=== PATIENT | male | born 1985 | race American Indian/Alaskan Native ===

== ENCOUNTER 2019-05-01 15:47 | Inpatient (IN) | payer OTHER ==
[2019-05-01] MEDS ORDERED: SODIUM CHLORIDE 0.9% 1000 ML 1,000 ML IV ONE (17:22)
--- NOTE | 2019-05-01 17:25 | Emergency Department Report ---
ED General Adult HPI - General Chief complaint: Dyspnea/Respdistress Stated complaint: NAUSE/VOMITING/SHAKING Time Seen by Provider: 05/01/19 16:08 Source: patient, RN notes reviewed Mode of arrival: Wheelchair Limitations: Physical Limitation - History of Present Illness Initial comments: The patient is a 34-year-old gentleman who is not known to this provider previously. He does not have a local primary care doctor. He is morbidly obese. He believes that he has a history of sleep apnea, but does not have a formal diagnosis that he is aware of. He reports that he is using a friend's CPAP machine, but he's not use a CPAP for 4-6 weeks. He presents to the ER today with weakness, malaise, reported nausea, somnolence, shortness of breath, lower extremity swelling. He denies DVT and pulmonary embolism risk factors. He does not have a primary care doctor or credit representative. -: Gradual, days(s) Severity scale (0 -10): 0 Consistency: constant Improves with: rest Worsens with: movement - Related Data Allergies Allergy/AdvReac Type Severity Reaction Status Date / Time No Known Allergies Allergy Verified 05/01/19 20:27 ED Review of Systems ROS: Stated complaint: NAUSE/VOMITING/SHAKING Other details as noted in HPI Constitutional: malaise Eyes: denies: eye discharge ENT: congestion Respiratory: shortness of breath Cardiovascular: edema. denies: chest pain Gastrointestinal: nausea Genitourinary: denies: dysuria Musculoskeletal: arthralgia, myalgia Skin: denies: lesions Neurological: weakness Hematological/Lymphatic: denies: easy bleeding ED Past Medical Hx - Past Medical History Previous Medical History?: Yes Additional medical history: Sleep apnea - Surgical History Past Surgical History?: No - Social History Smoking Status: Current Every Day Smoker Substance Use Type: Alcohol ED Physical Exam - General Limitations: Physical Limitation General appearance: alert, anxious, obese - Head Head exam: Present: atraumatic, normocephalic - Eye Eye exam: Present: normal appearance, EOMI. Absent: nystagmus - ENT ENT exam: Present: normal exam, normal orophraynx, mucous membranes moist, normal external ear exam - Neck Neck exam: Present: normal inspection, full ROM. Absent: tenderness, meningismus - Respiratory Respiratory exam: Present: rales. Absent: respiratory distress - Cardiovascular Cardiovascular Exam: Present: normal rhythm, tachycardia, normal heart sounds. Absent: systolic murmur, diastolic murmur, rubs, gallop - GI/Abdominal GI/Abdominal exam: Present: soft. Absent: distended, tenderness, guarding, rebound, rigid, pulsatile mass - Rectal Rectal exam: Present: deferred - Extremities Exam Extremities exam: Present: normal inspection, full ROM, pedal edema, other (2+ pulses noted in the bilateral upper and lower extremities. There is no palpable cord. negative Homans sign. Muscular compartments are soft. The pelvis is stable.). Absent: calf tenderness - Back Exam Back exam: Present: normal inspection. Absent: tenderness, CVA tenderness (R), CVA tenderness (L), paraspinal tenderness, vertebral tenderness - Neurological Exam Neurological exam: Present: alert, other (is no facial droop. The tongue is midline. The extraocular movements are intact bilaterally. Sensation is intact to light touch in 4 extremities. 5 out of 5 strength in 4 extremities.) - Psychiatric Psychiatric exam: Present: anxious ( 5 out of 5 strength in 4 extremities.) - Skin Skin exam: Present: warm, dry, intact, normal color. Absent: rash ED Course Vital Signs 05/01/19 05/01/19 05/01/19 15:57 16:10 16:16 Temperature 98.1 F Pulse Rate 109 H 101 H Respiratory 24 19 14 Rate Blood Pressure 145/85 145/89 Blood Pressure [Left] O2 Sat by Pulse 84 61 L Oximetry 05/01/19 05/01/19 05/01/19 16:30 16:46 16:52 Temperature 99.1 F Pulse Rate 97 H 100 H Respiratory 26 H 26 H Rate Blood Pressure 145/89 145/89 Blood Pressure 145/89 [Left] O2 Sat by Pulse 78 L 94 90 Oximetry 05/01/19 05/01/19 05/01/19 16:53 17:00 17:16 Temperature Pulse Rate 101 H Respiratory 24 32 H 17 Rate Blood Pressure 145/89 145/89 Blood Pressure [Left] O2 Sat by Pulse 93 Oximetry 05/01/19 05/01/19 05/01/19 17:31 17:45 18:01 Temperature Pulse Rate 96 H 100 H 100 H Respiratory 29 H 19 20 Rate Blood Pressure 168/96 168/96 168/96 Blood Pressure [Left] O2 Sat by Pulse 77 L 85 74 L Oximetry 05/01/19 05/01/19 05/01/19 18:15 18:31 18:45 Temperature Pulse Rate Respiratory Rate Blood Pressure 168/96 168/96 168/96 Blood Pressure [Left] O2 Sat by Pulse 89 94 82 L Oximetry 05/01/19 05/01/19 05/01/19 19:01 19:15 19:31 Temperature Pulse Rate Respiratory Rate Blood Pressure 168/96 168/96 168/96 Blood Pressure [Left] O2 Sat by Pulse 87 84 86 Oximetry 05/01/19 05/01/19 05/01/19 19:45 20:01 20:15 Temperature Pulse Rate 99 H 107 H Respiratory 15 15 Rate Blood Pressure 168/96 149/77 149/77 Blood Pressure [Left] O2 Sat by Pulse 87 80 L 70 L Oximetry - Reevaluation(s) Reevaluation #1: 05/01/19 20:37 Differential diagnosis, including but not limited to: Obesity hypoventilation syndrome, obstructive sleep apnea, right-sided heart failure, congestive heart failure, pneumonia Assessment and plan: 34-year-old gentleman who is morbidly obese, found to have lower extremity edema, found to have evidence of congestive heart failure, manifest by hypoxia, edema, pulmonary vascular congestion, all multifactorial, likely secondary to multiple factors, including morbid obesity, and adequately an incompletely managed obstructive sleep apnea, probable obesity hypoventilation syndrome. Most likely has a component of right-sided heart failure, and pulmonary hypertension. He denied recent travel, immobility, surgery. He denied DVT and pulmonary embolism risk factors. Obesity, tachycardia and hypoxia noted, however, this is likely secondary to the aforementioned. In addition, his lower extremity DVT study is negative. His arterial blood gas demonstrated hypoxemic respiratory failure, respiratory acidosis and hypercarbia. Patient mentating at this time. will start on bipap 05/01/19 20:39 \ His congestive heart failure will will be treated with Lasix, noninvasive ventilation, he is found to be hyperkalemic, therefore, he will be treated empirically with a hyperkalemia cocktail. Hypercarbic respiratory failure will be treated with noninvasive ventilation. Patient mentating at this time and is an appropriate candidate for BiPAP therapy. Reevaluation #2: 05/01/19 20:44 d/w JAMI Caraballo, who has accepted patient to the medical service. Leukocytos is is reviewed and appreciated, this is likely a stress reaction. Based off of the available information, I do not suspect acute bacteremic illness at this time. Patient my opinion will not benefit from aggressive IV fluid resuscitation. Reevaluation #3: 05/01/19 21:17 Patient's condition deteriorated. Mental status worsens, not a candidate for BiPAP therapy. Patient required placement of endotracheal tube. He also transiently lost pulses, had aggressive CPR, pulses are reobtained, return of spontaneous circulation obtained. Blood pressure appropriate at this time. Post intubation, patient had rapid narrow complex tachycardia, rate 232, suspicious for SVT versus atrial tachycardia. He was also found to be hypotensive, and this required synchronized cardioversion at 200 J 2. He is now currently in a sinus rhythm, tachycardia, with an appropriate pressu re. [facility] medicine team is updated. 05/01/19 21:47 - Intubation Time Out Performed: No (emergent) Sedative: none Laryngoscope: fiberoptic video scope Size: 4 Assist Device Used: fiberoptic device ET Tube Size: 7.5 Tube Secured Depth (cm): 23 Tube Secured Location: lips Tube Placement Confirmation: visualized tube passing t, equal breath sounds bilat, no breath sounds over epi, confirmation by capnometr Patient Tolerated Procedure: well Intubation Complications: difficult intubation ED Medical Decision Making - Lab Data Result diagrams: 05/01/19 Unknown 05/01/19 Unknown Vital Signs 05/01/19 05/01/19 05/01/19 15:57 16:52 16:53 Temperature 98.1 F 99.1 F Pulse Rate 109 H 100 H Respiratory 24 26 H 24 Rate Blood Pressure 145/85 Blood Pressure 145/89 [Left] O2 Sat by Pulse 84 90 Oximetry Lab Results 05/01/19 05/01/19 05/01/19 Range/Units 17:50 Unknown Unknown WBC 16.1 H (4.5-11.0) K/mm3 RBC 4.79 (3.65-5.03) M/mm3 Hgb 13.3 (11.8-15.2) gm/dl Hct 41.0 (35.5-45.6) % MCV 86 (84-94) fl MCH 28 (28-32) pg MCHC 33 (32-34) % RDW 17.2 H (13.2-15.2) % Plt Count 266 (140-440) K/mm3 Lymph % (Auto) 16.6 (13.4-35.0) % Shelby % (Auto) 9.6 H (0.0-7.3) % Eos % (Auto) 0.2 (0.0-4.3) % Baso % (Auto) 0.6 (0.0-1.8) % Lymph # 2.7 (1.2-5.4) K/mm3 Shelby # 1.5 H (0.0-0.8) K/mm3 Eos # 0.0 (0.0-0.4) K/mm3 Baso # 0.1 (0.0-0.1) K/mm3 Seg Neutrophils % 73.0 H (40.0-70.0) % Seg Neutrophils # 11.7 H (1.8-7.7) K/mm3 PT 15.4 H (12.2-14.9) Sec. INR 1.23 H (0.87-1.13) APTT 22.7 L (24.2-36.6) Sec. POC ABG pH 7.272 L (7.35-7.45) POC ABG HCO3 33.1 (22-26 mml/L) POC ABG Total CO2 35 (23-27mmol/L) POC ABG O2 Sat 69 POC ABG Base Excess 6 ((-2) - (+3)mmol/L) FiO2 21 % Sodium Potassium Chloride Carbon Dioxide Anion Gap BUN Creatinine Estimated GFR BUN/Creatinine Ratio Glucose Calcium Magnesium Total Bilirubin AST ALT Alkaline Phosphatase Total Creatine Kinase (55-170) units/L Troponin T NT-Pro-B Natriuret Pep (0-450) pg/mL Total Protein Albumin Albumin/Globulin Ratio 05/01/19 05/01/19 05/01/19 Range/Units Unknown Unknown Unknown WBC (4.5-11.0) K/mm3 RBC (3.65-5.03) M/mm3 Hgb (11.8-15.2) gm/dl Hct (35.5-45.6) % MCV (84-94) fl MCH (28-32) pg MCHC (32-34) % RDW (13.2-15.2) % Plt Count (140-440) K/mm3 Lymph % (Auto) (13.4-35.0) % Shelby % (Auto) (0.0-7.3) % Eos % (Auto) (0.0-4.3) % Baso % (Auto) (0.0-1.8) % Lymph # (1.2-5.4) K/mm3 Shelby # (0.0-0.8) K/mm3 Eos # (0.0-0.4) K/mm3 Baso # (0.0-0.1) K/mm3 Seg Neutrophils % (40.0-70.0) % Seg Neutrophils # (1.8-7.7) K/mm3 PT (12.2-14.9) Sec. INR (0.87-1.13) APTT (24.2-36.6) Sec. POC ABG pH (7.35-7.45) POC ABG HCO3 (22-26 mml/L) POC ABG Total CO2 (23-27mmol/L) POC ABG O2 Sat POC ABG Base Excess ((-2) - (+3)mmol/L) FiO2 % Sodium TNR Potassium TNR Chloride TNR Carbon Dioxide TNR Anion Gap TNR BUN TNR Creatinine TNR Estimated GFR TNR BUN/Creatinine Ratio TNR Glucose TNR Calcium TNR Magnesium TNR Total Bilirubin TNR AST TNR ALT TNR Alkaline Phosphatase TNR Total Creatine Kinase 226 H (55-170) units/L Troponin T TNR NT-Pro-B Natriuret Pep 6831 H (0-450) pg/mL Total Protein TNR Albumin TNR Albumin/Globulin Ratio TNR Vital Signs 05/01/19 05/01/19 05/01/19 15:57 16:10 16:16 Temperature 98.1 F Pulse Rate 109 H 101 H Respiratory 24 19 14 Rate Blood Pressure 145/85 145/89 Blood Pressure [Left] O2 Sat by Pulse 84 61 L Oximetry 05/01/19 05/01/19 05/01/19 16:30 16:46 16:52 Temperature 99.1 F Pulse Rate 97 H 100 H Respiratory 26 H 26 H Rate Blood Pressure 145/89 145/89 Blood Pressure 145/89 [Left] O2 Sat by Pulse 78 L 94 90 Oximetry 05/01/19 05/01/19 05/01/19 16:53 17:00 17:16 Temperature Pulse Rate 101 H Respiratory 24 32 H 17 Rate Blood Pressure 145/89 145/89 Blood Pressure [Left] O2 Sat by Pulse 93 Oximetry 05/01/19 05/01/19 05/01/19 17:31 17:45 18:01 Temperature Pulse Rate 96 H 100 H 100 H Respiratory 29 H 19 20 Rate Blood Pressure 168/96 168/96 168/96 Blood Pressure [Left] O2 Sat by Pulse 77 L 85 74 L Oximetry 05/01/19 05/01/19 05/01/19 18:15 18:31 18:45 Temperature Pulse Rate Respiratory Rate Blood Pressure 168/96 168/96 168/96 Blood Pressure [Left] O2 Sat by Pulse 89 94 82 L Oximetry 05/01/19 05/01/19 05/01/19 19:01 19:15 19:31 Temperature Pulse Rate Respiratory Rate Blood Pressure 168/96 168/96 168/96 Blood Pressure [Left] O2 Sat by Pulse 87 84 86 Oximetry 05/01/19 05/01/19 05/01/19 19:45 20:01 20:15 Temperature Pulse Rate 99 H 107 H Respiratory 15 15 Rate Blood Pressure 168/96 149/77 149/77 Blood Pressure [Left] O2 Sat by Pulse 87 80 L 70 L Oximetry Lab Results 05/01/19 05/01/19 05/01/19 Range/Units 17:50 19:26 Unknown WBC 16.1 H (4.5-11.0) K/mm3 RBC 4.79 (3.65-5.03) M/mm3 Hgb 13.3 (11.8-15.2) gm/dl Hct 41.0 (35.5-45.6) % MCV 86 (84-94) fl MCH 28 (28-32) pg MCHC 33 (32-34) % RDW 17.2 H (13.2-15.2) % Plt Count 266 (140-440) K/mm3 Lymph % (Auto) 16.6 (13.4-35.0) % Shelby % (Auto) 9.6 H (0.0-7.3) % Eos % (Auto) 0.2 (0.0-4.3) % Baso % (Auto) 0.6 (0.0-1.8) % Lymph # 2.7 (1.2-5.4) K/mm3 Shelby # 1.5 H (0.0-0.8) K/mm3 Eos # 0.0 (0.0-0.4) K/mm3 Baso # 0.1 (0.0-0.1) K/mm3 Seg Neutrophils % 73.0 H (40.0-70.0) % Seg Neutrophils # 11.7 H (1.8-7.7) K/mm3 PT (12.2-14.9) Sec. INR (0.87-1.13) APTT (24.2-36.6) Sec. POC ABG pH 7.272 L (7.35-7.45) POC ABG HCO3 33.1 (22-26 mml/L) POC ABG Total CO2 35 (23-27mmol/L) POC ABG O2 Sat 69 POC ABG Base Excess 6 ((-2) - (+3)mmol/L) FiO2 21 % Sodium 136 L (137-145) mmol/L Potassium 6.5 H* (3.6-5.0) mmol/L Chloride 97.2 L (98-107) mmol/L Carbon Dioxide 27 (22-30) mmol/L Anion Gap 18 mmol/L BUN 60 H (9-20) mg/dL Creatinine 1.5 (0.8-1.5) mg/dL Estimated GFR > 60 ml/min BUN/Creatinine Ratio 40 % Glucose 113 H (75-100) mg/dL Calcium 8.6 (8.4-10.2) mg/dL Magnesium 2.40 H (1.7-2.3) mg/dL Total Bilirubin 0.70 (0.1-1.2) mg/dL AST 139 H (5-40) units/L ALT 154 H (7-56) units/L Alkaline Phosphatase 122 (35-129) units/L Total Creatine Kinase (55-170) units/L Troponin T NT-Pro-B Natriuret Pep (0-450) pg/mL Total Protein 8.2 (6.3-8.2) g/dL Albumin 3.8 L (3.9-5) g/dL Albumin/Globulin Ratio 0.9 % 05/01/19 05/01/19 05/01/19 Range/Units Unknown Unknown Unknown WBC (4.5-11.0) K/mm3 RBC (3.65-5.03) M/mm3 Hgb (11.8-15.2) gm/dl Hct (35.5-45.6) % MCV (84-94) fl MCH (28-32) pg MCHC (32-34) % RDW (13.2-15.2) % Plt Count (140-440) K/mm3 Lymph % (Auto) (13.4-35.0) % Shelby % (Auto) (0.0-7.3) % Eos % (Auto) (0.0-4.3) % Baso % (Auto) (0.0-1.8) % Lymph # (1.2-5.4) K/mm3 Shelby # (0.0-0.8) K/mm3 Eos # (0.0-0.4) K/mm3 Baso # (0.0-0.1) K/mm3 Seg Neutrophils % (40.0-70.0) % Seg Neutrophils # (1.8-7.7) K/mm3 PT 15.4 H (12.2-14.9) Sec. INR 1.23 H (0.87-1.13) APTT 22.7 L (24.2-36.6) Sec. POC ABG pH (7.35-7.45) POC ABG HCO3 (22-26 mml/L) POC ABG Total CO2 (23-27mmol/L) POC ABG O2 Sat POC ABG Base Excess ((-2) - (+3)mmol/L) FiO2 % Sodium TNR (137-145) mmol/L Potassium TNR (3.6-5.0) mmol/L Chloride TNR (98-107) mmol/L Carbon Dioxide TNR (22-30) mmol/L Anion Gap TNR mmol/L BUN TNR (9-20) mg/dL Creatinine TNR (0.8-1.5) mg/dL Estimated GFR TNR ml/min BUN/Creatinine Ratio TNR % Glucose TNR (75-100) mg/dL Calcium TNR (8.4-10.2) mg/dL Magnesium TNR (1.7-2.3) mg/dL Total Bilirubin TNR (0.1-1.2) mg/dL AST TNR (5-40) units/L ALT TNR (7-56) units/L Alkaline Phosphatase TNR (35-129) units/L Total Creatine Kinase (55-170) units/L Troponin T TNR NT-Pro-B Natriuret Pep 6831 H (0-450) pg/mL Total Protein TNR (6.3-8.2) g/dL Albumin TNR (3.9-5) g/dL Albumin/Globulin Ratio TNR % 05/01/19 Range/Units Unknown WBC (4.5-11.0) K/mm3 RBC (3.65-5.03) M/mm3 Hgb (11.8-15.2) gm/dl Hct (35.5-45.6) % MCV (84-94) fl MCH (28-32) pg MCHC (32-34) % RDW (13.2-15.2) % Plt Count (140-440) K/mm3 Lymph % (Auto) (13.4-35.0) % Shelby % (Auto) (0.0-7.3) % Eos % (Auto) (0.0-4.3) % Baso % (Auto) (0.0-1.8) % Lymph # (1.2-5.4) K/mm3 Shelby # (0.0-0.8) K/mm3 Eos # (0.0-0.4) K/mm3 Baso # (0.0-0.1) K/mm3 Seg Neutrophils % (40.0-70.0) % Seg Neutrophils # (1.8-7.7) K/mm3 PT (12.2-14.9) Sec. INR (0.87-1.13) APTT (24.2-36.6) Sec. POC ABG pH (7.35-7.45) POC ABG HCO3 (22-26 mml/L) POC ABG Total CO2 (23-27mmol/L) POC ABG O2 Sat POC ABG Base Excess ((-2) - (+3)mmol/L) FiO2 % Sodium (137-145) mmol/L Potassium (3.6-5.0) mmol/L Chloride (98-107) mmol/L Carbon Dioxide (22-30) mmol/L Anion Gap mmol/L BUN (9-20) mg/dL Creatinine (0.8-1.5) mg/dL Estimated GFR ml/min BUN/Creatinine Ratio % Glucose (75-100) mg/dL Calcium (8.4-10.2) mg/dL Magnesium (1.7-2.3) mg/dL Total Bilirubin (0.1-1.2) mg/dL AST (5-40) units/L ALT (7-56) units/L Alkaline Phosphatase (35-129) units/L Total Creatine Kinase 226 H (55-170) units/L Troponin T NT-Pro-B Natriuret Pep (0-450) pg/mL Total Protein (6.3-8.2) g/dL Albumin (3.9-5) g/dL Albumin/Globulin Ratio % - EKG Data -: EKG Interpreted by De EKG shows normal: sinus rhythm - EKG Data When compared to previous EKG there are: previous EKG unavailable 05/01/19 20:35 There is no prior EKG available for comparison. The EKG shows a sinus rhythm, right axis deviation, right axis deviation, right posterior fascicular block, low voltage, motion artifact. The EKG is abnormal. The EKG is not consistent with ST elevation myocardial infarction. - Radiology Data Radiology results: report reviewed, image reviewed Print Report Referring Physician: LOIDA COLLINS Patient Name: COLIN GALEANO Date of : 1985 Sex: Male Report Date: 2019-05-01 Report Status: Finalized Findings [facility] [address] [place] [address] XRay Report Signed Patient: COLIN GALEANO MR#: [id number] : 1985 Acct:[id number] Age/Sex: 34 / M ADM Date: 05/01/19 Loc: ED Attending Dr: Ordering Physician: LOIDA COLLINS MD Date of Service: 05/01/19 Procedure(s): XR chest 1V ap Accession Number(s): [id number] cc: LOIDA COLLINS MD Fluoro Time In Minutes: CHEST 1 VIEW INDICATION: Dyspnea. COMPARISON: None FINDINGS: Support devices: None. Heart: Mild cardiomegaly. Lungs/Pleura: Mild interstitial edema with small left-sided effusion. Additional findings: None. IMPRESSION: 1. Mild cardiomegaly with mild interstitial edema and small left-sided effusion. Signer Name: Santiago Ernandez MD Signed: 05/01/2019 6:11 PM Workstation Name: [id number] Transcribed By: MIGUEL Dictated By: Santiago Ernandez MD Electronically Authenticated By: Santiago Ernandez MD Signed Date/Time: 1810 DD/ 09 Critical Care Time: Yes Critical care time in (mins) excluding proc time.: 35 Critical care attestation.: If time is entered above; I have spent that time in minutes in the direct care of this critically ill patient, excluding procedure time. ED Disposition Clinical Impression: Hypercapnic respiratory failure, Congestive heart failure, Morbid obesity, Noncompliance with CPAP treatment, Hyperkalemia Disposition: OP ADMIT IP TO THIS HOSP Is pt being admited?: Yes Does the pt Need Aspirin: Yes Condition: Serious Referrals: PRIMARY CARE, [Primary Care Provider] - 3-5 Days
[2019-05-01 17:39] LABS: Basophils # (Auto) 0.1 K/mm3 (0.0-0.1); Basophils % (Auto) 0.6 % (0.0-1.8); Eosinophils % (Auto) 0.2 % (0.0-4.3); Hemoglobin 13.3 gm/dl (11.8-15.2); Lymphocytes # (Auto) 2.7 K/mm3 (1.2-5.4); Lymphocytes % (Auto) 16.6 % (13.4-35.0); Mean Corpuscular HGB Conc 33 % (32-34); Mean Corpuscular Volume 86 fl (84-94); Monocytes # (Auto) 1.5 K/mm3 (0.0-0.8); Monocytes % (Auto) 9.6 % (0.0-7.3); Platelet Count 266 K/mm3 (140-440); Red Blood Count 4.79 M/mm3 (3.65-5.03); Red Cell Distribution Width 17.2 % (13.2-15.2)
[2019-05-01 17:48] LABS: INR 1.23 (0.87-1.13)
[2019-05-01 17:49] LABS: Partial Thromboplastin Time 22.7 Sec. (24.2-36.6)
[2019-05-01 18:03] LABS: BUN/Creatinine Ratio TNR; Blood Urea Nitrogen TNR mg/dL (9-20)
[2019-05-01 18:04] LABS: Alanine Aminotransferase TNR units/L (7-56); Albumin TNR g/dL (3.9-5); Calcium TNR mg/dL (8.4-10.2)
[2019-05-01 18:05] LABS: Hemolysis Index TNR
--- NOTE | 2019-05-01 18:15 | XRay Report ---
CHEST 1 VIEW INDICATION: Dyspnea. COMPARISON: None FINDINGS: Support devices: None. Heart: Mild cardiomegaly. Lungs/Pleura: Mild interstitial edema with small left-sided effusion. Additional findings: None. IMPRESSION: 1. Mild cardiomegaly with mild interstitial edema and small left-sided effusion. Signer Name: Santiago Ernandez MD Signed: 05/01/2019 6:11 PM Workstation Name: [id number]
--- NOTE | 2019-05-01 19:54 | Vascular Lab Report ---
DUPLEX DOPPLER BILATERAL LOWER EXTREMITY VEINS INDICATION: Shortness of Breath, lower ext swelling FINDINGS: There is no thrombus within the deep veins of either lower extremity from the common femoral to the c nelly veins. There is normal compression and augmentation on spectral analysis. IMPRESSION: No sonographic evidence for DVT in either lower extremity. Signer Name: Rahul Issa MD Signed: 05/01/2019 7:50 PM Workstation Name: [id number]
[2019-05-01 19:59] LABS: Albumin 3.8 g/dL (3.9-5); BUN/Creatinine Ratio 40; Blood Urea Nitrogen 60 mg/dL (9-20); Calcium 8.6 mg/dL (8.4-10.2); Hemolysis Index 102
[2019-05-01 20:13] LABS: Alanine Aminotransferase 154 units/L (7-56)
[2019-05-01] MEDS ORDERED: SODIUM POLYSTYRENE 15 GM/60 ML ORAL LIQD PO ONE (20:24)
[2019-05-01] MEDS ORDERED: INSULIN REGULAR, HUMAN 100 UNITS/1 ML IV ONE (20:24)
[2019-05-01] MEDS ORDERED: DEXTROSE 50% IN WATER (25GM) 50 ML VIAL IV PRN (20:24)
[2019-05-01] MEDS ORDERED: SODIUM BICARB 8.4% 50 MEQ/50 ML SYRINGE IV ONE (20:24)
[2019-05-01] MEDS ORDERED: DEXTROSE 50% IN WATER (25GM) 50 ML VIAL IV ONE (20:24)
[2019-05-01] MEDS ORDERED: FUROSEMIDE 40 MG/4 ML INJ IV ONE (20:24)
[2019-05-01] MEDS ORDERED: ALBUTEROL 2.5 MG/3 ML NEBU IH ONE ×2 (20:24→23:01)
[2019-05-01] MEDS ORDERED: LIP THERAPY VASELINE TP PRN (21:14)
[2019-05-01] MEDS ORDERED: MINERAL OIL/PETROLATUM, WHITE OPHTH OINT 3.5 GM OU PRN (21:14)
--- NOTE | 2019-05-01 21:48 | XRay Report ---
CHEST 1 VIEW 05/01/2019 9:22 PM INDICATION / CLINICAL INFORMATION: ETT placement. COMPARISON: Chest x-ray done earlier on 05/01/2019 FINDINGS: SUPPORT DEVICES: ET tube has been placed with the tip about 4 cm above the alexus. HEART / MEDIASTINUM: Stable. LUNGS / PLEURA: Stable mild interstitial edema and small left pleural effusion. No pneumothorax. ADDITIONAL FINDINGS: No significant additional findings. IMPRESSION: 1. ET tube appears appropriately placed. Stable mild pulmonary edema and small left pleural effusion. Signer Name: Rahul Issa MD Signed: 05/01/2019 9:43 PM Workstation Name: [id number]
[2019-05-01] MEDS ORDERED: FUROSEMIDE 20 MG/2 ML INJ IV ONE (22:01)
--- NOTE | 2019-05-01 22:36 | History and Physical Report ---
History of Present Illness History of present illness: 34-year-old man who is morbidly obese with unknown medical problem was brought to the emergency room with complaints of shortness of breath and difficulty sleeping. History is per the chart, nurse reported that his saturation dropped to 28%, heart rate in the 50s, she checked on them, he was cyanotic and was subsequently intubated and recieved 2 rounds of epinephrine. Review of system i s unobtainable patient had pulmonary edema, receive IV Lasix, also status post Zosyn, started on a fentanyl drip. PAST MEDICAL HISTORY:Unknown PAST SURGICAL HISTORY: Unknown FAMILY HISTORY:Unknown SOCIAL HISTORY: Unknown Medications and Allergies Allergies Allergy/AdvReac Type Severity Reaction Status Date / Time No Known Allergies Allergy Verified 05/01/19 20:27 Active Meds: Active Medications Dextrose (D50w (25gm) Vial) 50 gm IV Q30MIN PRN; Protocol PRN Reason: Hypoglycemia Enoxaparin Sodium (Enoxaparin) 30 mg SUB-Q QDAY [facility] Fentanyl (Sublimaze) 50 mcg IV Q10MIN PRN PRN Reason: ANALGESIA Hydrophilic Ointment (Vaseline Lip Therapy) 1 applic TP Q2HR PRN PRN Reason: Dry Lips Fentanyl Citrate (Fentanyl Drip Premix) 2,000 mcg in 100 mls @ 10.195 mls/hr IV TITR [facility]; Protocol Multi-Ingred Cream/Lotion/Oil/Oint (Artificial Tears Ophth Oint) 1 applic OU Q4HR PRN PRN Reason: Dry Eye(s) Exam - Physical Exam Narrative exam: General Apperance: The patient sitting in bed no acute distress, intubated HEENT: Normocephalic, atraumatic. Pupils equally round and reactive to light, unable to do extraocular movement, and no sclericterus or JVD or thyromegaly or nodule. Neck supple, no carotid bruit, mucous membranes dry, unable to examine oral cavity Heart: S1-S2, regular is rhythm Lungs: Clear to auscultation anteriorlybilaterally, breathing comfortable Abdomen: Positive bowel sounds, soft, obese, difficult to assess organomegaly Extremities: + edema cyanosis clubbing Skin: no rash, nodule, warm and dry Neuro:sedated - Constitutional Vitals: Temp Pulse Resp BP Pulse Ox 99.1 F 84 34 H 113/63 99 05/01/19 16:52 05/01/19 21:15 05/01/19 20:45 05/01/19 21:15 05/01/19 21:15 Results - Labs CBC & Chem 7: 05/02/19 04:41 05/02/19 04:41 Labs: Abnormal lab results 05/01/19 05/01/19 05/01/19 Range/Units 17:50 19:26 Unknown WBC 16.1 H (4.5-11.0) K/mm3 RDW 17.2 H (13.2-15.2) % [place] % (Auto) 9.6 H (0.0-7.3) % [place] # 1.5 H (0.0-0.8) K/mm3 Seg Neutrophils % 73.0 H (40.0-70.0) % Seg Neutrophils # 11.7 H (1.8-7.7) K/mm3 PT (12.2-14.9) Sec. INR (0.87-1.13) APTT (24.2-36.6) Sec. POC ABG pH 7.272 L (7.35-7.45) Sodium 136 L (137-145) mmol/L Potassium 6.5 H* (3.6-5.0) mmol/L Chloride 97.2 L (98-107) mmol/L BUN 60 H (9-20) mg/dL Glucose 113 H (75-100) mg/dL Magnesium 2.40 H (1.7-2.3) mg/dL AST 139 H (5-40) units/L ALT 154 H (7-56) units/L Total Creatine Kinase (55-170) units/L NT-Pro-B Natriuret Pep (0-450) pg/mL Albumin 3.8 L (3.9-5) g/dL 05/01/19 05/01/19 05/01/19 Range/Units Unknown Unknown Unknown WBC (4.5-11.0) K/mm3 RDW (13.2-15.2) % [place] % (Auto) (0.0-7.3) % [place] # (0.0-0.8) K/mm3 Seg Neutrophils % (40.0-70.0) % Seg Neutrophils # (1.8-7.7) K/mm3 PT 15.4 H (12.2-14.9) Sec. INR 1.23 H (0.87-1.13) APTT 22.7 L (24.2-36.6) Sec. POC ABG pH (7.35-7.45) Sodium (137-145) mmol/L Potassium (3.6-5.0) mmol/L Chloride (98-107) mmol/L BUN (9-20) mg/dL Glucose (75-100) mg/dL Magnesium (1.7-2.3) mg/dL AST (5-40) units/L ALT (7-56) units/L Total Creatine Kinase 226 H (55-170) units/L NT-Pro-B Natriuret Pep 6831 H (0-450) pg/mL Albumin (3.9-5) g/dL - Imaging and Cardiology EKG: image reviewed Chest x-ray: report reviewed Assessment and Plan Assessment Acute hypoxic respiratory failure/Cardiac arrest Status post intubation, continue sedation, consult pulmonary Follow ABG and make adjustments to vent settings consult cardiology, check echo, cardiac enzymes Acute CHF, new onset, probably diastolic Diurese with IV lasix, monitor I/O, daily weights Cardiology to see. Add beta-jenny, no TIM inhibitor secondary to renal insufficiency Hypertension malignant Start antihypertensive, monitor blood pressure IV hydralazine as needed for further control Hyperkalemia, s/p cocktail Follow potassium level SIRS Start zosyn, vanco, follow culture DVT prophylaxis D/w family at bedside who came in later. They are not able to add to history
[2019-05-01] MEDS ORDERED: PIPERACILLIN/TAZOBACTAM 3.375 3.375 GM/50 ML BAG IV SCH (22:44)
[2019-05-01] MEDS ORDERED: ONDANSETRON 4 MG/2 ML INJ IV PRN (22:46)
[2019-05-01] MEDS ORDERED: fentaNYL 100 MCG/2 ML INJ ONE (23:14)
[2019-05-01] MEDS: fentaNYL 100 MCG/2 ML INJ IV PRN (23:18)
[2019-05-01] MEDS ORDERED: VANCOMYCIN/NS 1 GM/250 ML 1 GM/250 ML BAG IV ONE (23:21)
[2019-05-01] MEDS ORDERED: VANCOMYCIN 2,000 MG in SODIUM CHLORIDE 0.9% 500 ML 500 ML IV ONE (23:30)
[2019-05-01] MEDS: fentaNYL DRIP Premix 2,000 MCG/100 ML BAG IV SCH (23:40)
[2019-05-02 00:26] LABS: Creatine Kinase MB 5.7 ng/mL (0.0-4.0)
[2019-05-02] MEDS ORDERED: PIPERACILLIN/TAZOBACTAM 3.375 3.375 GM/50 ML BAG IV ONE (01:31)
[2019-05-02 02:13] LABS: Chol/HDL Ratio 9.61 %
[2019-05-02 02:42] LABS: Calcium 9.6 mg/dL (8.4-10.2)
[2019-05-02] MEDS ORDERED: METOPROLOL TARTRATE 50 MG TAB ONE (03:51)
[2019-05-02] MEDS ORDERED: fentaNYL 100 MCG/2 ML INJ ONE (03:58)
[2019-05-02] MEDS ORDERED: fentaNYL DRIP Premix 2,000 MCG/100 ML BAG IV ONE (03:58)
[2019-05-02] MEDS: fentaNYL 100 MCG/2 ML INJ IV PRN ×4 (04:00→20:36)
[2019-05-02] MEDS: METOPROLOL TARTRATE 25 MG TAB PO SCH ×4 (04:00→21:44)
[2019-05-02] MEDS: fentaNYL DRIP Premix 2,000 MCG/100 ML BAG IV SCH ×6 (04:35→22:31)
[2019-05-02 05:21] LABS: Basophils # (Auto) 0.1 K/mm3 (0.0-0.1); Basophils % (Auto) 0.7 % (0.0-1.8); Eosinophils % (Auto) 0.1 % (0.0-4.3); Hematocrit 40.4 % (35.5-45.6); Hemoglobin 12.9 gm/dl (11.8-15.2); Lymphocytes # (Auto) 1.8 K/mm3 (1.2-5.4); Lymphocytes % (Auto) 10.2 % (13.4-35.0); Mean Corpuscular HGB Conc 32 % (32-34); Mean Corpuscular Volume 85 fl (84-94); Monocytes # (Auto) 1.9 K/mm3 (0.0-0.8); Platelet Count 267 K/mm3 (140-440); Red Blood Count 4.76 M/mm3 (3.65-5.03); Red Cell Distribution Width 17.4 % (13.2-15.2)
[2019-05-02 05:40] LABS: Creatine Kinase MB 5.2 ng/mL (0.0-4.0)
[2019-05-02 05:43] LABS: Calcium 9.4 mg/dL (8.4-10.2)
[2019-05-02] MEDS ORDERED: hydrALAZINE 20 MG/1 ML INJ IV ONE (05:53)
[2019-05-02] MEDS ORDERED: hydrALAZINE 20 MG/1 ML INJ ONE (06:20)
[2019-05-02] MEDS ORDERED: FUROSEMIDE 20 MG/2 ML INJ ONE (06:37)
[2019-05-02] MEDS ORDERED: PIPERACIL/TAZOBACTA 4.5/NS 100 4.5 GM/100 ML VIAL IV ONE (06:37)
[2019-05-02] MEDS: FUROSEMIDE 20 MG/2 ML INJ IV SCH ×2 (06:40→18:21)
[2019-05-02] MEDS: PIPERACIL/TAZOBACTA 4.5/NS 100 4.5 GM/100 ML VIAL IV SCH ×3 (06:40→21:44)
--- NOTE | 2019-05-02 08:02 | XRay Report ---
CHEST 1 VIEW 05/02/2019 7:29 AM INDICATION / CLINICAL INFORMATION: follow up respiratory failure. COMPARISON: Yesterday 9:24 PM FINDINGS: SUPPORT DEVICES: Stable, satisfactory positioning of endotracheal tube. Enteric tube enters the stoma ch with the tip outside the [id number]. HEART / MEDIASTINUM: Stable. LUNGS / PLEURA: Limited visualization on the present exam due to low lung volumes. No discernible sig nificant change is evident. There is linear/platelike atelectasis at the right lung base and mild colin ma. No pneumothorax. ADDITIONAL FINDINGS: No significant additional findings. IMPRESSION: 1. No significant change. Signer Name: David Clarke MD Signed: 05/02/2019 7:58 AM Workstation Name: [id number]
[2019-05-02] MEDS ORDERED: ENOXAPARIN 30 MG/0.3 ML INJ SUB-Q SCH (10:00)
[2019-05-02] MEDS: ENOXAPARIN 40 MG/0.4 ML INJ SUB-Q SCH (10:34)
--- NOTE | 2019-05-02 11:46 | XRay Report ---
ABDOMEN 2 VIEW(S) INDICATION / CLINICAL INFORMATION: confirmation of NG tube. COMPARISON: Chest x-ray from today FINDINGS: TUBES / LINES: NG tube tip terminates in the distal stomach. BOWEL GAS PATTERN: Nonobstructive FREE AIR / EXTRALUMINAL GAS: None seen. ADDITIONAL FINDINGS: No significant additional findings. IMPRESSION: 1. NGT as above. Signer Name: Santiago Ernandez MD Signed: 05/02/2019 11:42 AM Workstation Name: [id number]
--- NOTE | 2019-05-02 14:06 | Consultation ---
History of Present Illness Consult date: 05/02/19 Requesting physician: FANI ESPINOZA Consult reason: congestive heart failure History of present illness: Mr. Espinoza is a 34 y/o male with an unknown medical history who presented to [facility] with SOB. He is currently intubated and unresponsive; history is thus obtained from staff and the EMR. There was an attempt to place him on BiPAP, which was ultimately unsuccessful. Subsequently, his oxygen saturation and HR dropped. When staff checked on him, he was cyanotic; he was then intubated and given two rounds of epinephrine. CXR signficant for pulmonary edema and a left-sided pleural effusion. Troponins mildly elevated to 0.044 and 0.067, but EKG NAF. We are consulted to evaluate for possible heart failure given his initial presentation and x-ray. Past History Past Medical History: other (unknown) Medications and Allergies Allergies Allergy/AdvReac Type Severity Reaction Status Date / Time No Known Allergies Allergy Verified 05/01/19 20:27 Active Meds: Active Medications Acetaminophen (Tylenol) 650 mg PO Q4H PRN PRN Reason: Pain MILD(1-3)/Fever >100.5/FREEMAN Dextrose (D50w (25gm) Vial) 50 gm IV Q30MIN PRN; Protocol PRN Reason: Hypoglycemia Enoxaparin Sodium (Enoxaparin) 40 mg SUB-Q QDAY@1000 [facility] Last Admin: 05/02/19 10:34 Dose: 40 mg Documented by: Fentanyl (Sublimaze) 50 mcg IV Q10MIN PRN PRN Reason: ANALGESIA Last Admin: 05/02/19 09:15 Dose: 50 mcg Documented by: Furosemide (Lasix) 20 mg IV BID@0600,1800 [facility] Last Admin: 05/02/19 06:40 Dose: 20 mg Documented by: Hydrophilic Ointment (Vaseline Lip Therapy) 1 applic TP Q2HR PRN PRN Reason: Dry Lips Fentanyl Citrate (Fentanyl Drip Premix) 2,000 mcg in 100 mls @ 10.195 mls/hr IV TITR [facility]; Protocol Last Admin: 05/02/19 12:02 Dose: 2 mcg/kg/hr, 20.39 mls/hr Documented by: Piperacillin Sod/Tazobactam Sod (Zosyn/Ns 4.5gm/100ml) 4.5 gm in 100 mls @ 200 mls/hr IV Q8HR [facility]; Protocol Last Admin: 05/02/19 13:36 Dose: 200 mls/hr Documented by: Metoprolol Tartrate (Metoprolol) 25 mg PO BID [facility] Last Admin: 05/02/19 11:54 Dose: 25 mg Documented by: Multi-Ingred Cream/Lotion/Oil/Oint (Artificial Tears Ophth Oint) 1 applic OU Q4HR PRN PRN Reason: Dry Eye(s) Ondansetron HCl (Zofran) 4 mg IV Q8H PRN PRN Reason: Nausea And Vomiting Sodium Chloride (Sodium Chloride Flush Syringe 10 Ml) 10 ml IV BID [facility] Last Admin: 05/02/19 10:35 Dose: 10 ml Documented by: Sodium Chloride (Sodium Chloride Flush Syringe 10 Ml) 10 ml IV PRN PRN PRN Reason: LINE FLUSH Review of Systems ROS unobtainable: due to mental status Physical Examination Vital Signs Temp Pulse Resp BP Pulse Ox 98.1 F 109 H 24 145/85 84 05/01/19 15:57 05/01/19 15:57 05/01/19 15:57 05/01/19 15:57 05/01/19 15:57 General appearance: no acute distress HEENT: Positive: PERRL Neck: Positive: neck supple Cardiac: Positive: Regular Rhythm (tachycardia) Lungs: Positive: Ventilated Respirations Neuro: Positive: Other (unresponsive) Abdomen: Positive: Unremarkable Male genitourinary: Positive: deferred Skin: Positive: Clear Musculoskeletal: Decreased Range of Motion Extremities: Present: normal Results 05/02/19 04:41 05/02/19 04:41 Cardiac Enzymes 05/01/19 05/01/19 05/02/19 Range/Units 19:26 Unknown 00:06 AST 139 H TNR (5-40) units/L CK-MB (CK-2) 5.7 H (0.0-4.0) ng/mL 05/02/19 Range/Units 04:41 AST (5-40) units/L CK-MB (CK-2) 5.2 H (0.0-4.0) ng/mL Coagulation 05/01/19 Range/Units Unknown PT 15.4 H (12.2-14.9) Sec. INR 1.23 H (0.87-1.13) APTT 22.7 L (24.2-36.6) Sec. Lipids 05/02/19 Range/Units 00:06 Triglycerides 182 H (2-149) mg/dL Cholesterol 173 (50-199) mg/dL HDL Cholesterol 18 L (40-59) mg/dL Cholesterol/HDL Ratio 9.61 % CBC 05/01/19 05/02/19 Range/Units Unknown 04:41 WBC 16.1 H 17.6 H (4.5-11.0) K/mm3 RBC 4.79 4.76 (3.65-5.03) M/mm3 Hgb 13.3 12.9 (11.8-15.2) gm/dl Hct 41.0 40.4 (35.5-45.6) % Plt Count 266 267 (140-440) K/mm3 Lymph # 2.7 1.8 (1.2-5.4) K/mm3 [place] # 1.5 H 1.9 H (0.0-0.8) K/mm3 Eos # 0.0 0.0 (0.0-0.4) K/mm3 Baso # 0.1 0.1 (0.0-0.1) K/mm3 Comprehensive Metabolic Panel 05/01/19 05/01/19 05/02/19 Range/Units 19:26 Unknown 02:08 Sodium 136 L TNR 139 (137-145) mmol/L Potassium 6.5 H* TNR 4.9 D (3.6-5.0) mmol/L Chloride 97.2 L TNR 96.3 L (98-107) mmol/L Carbon Dioxide 27 TNR 25 (22-30) mmol/L BUN 60 H TNR 63 H (9-20) mg/dL Creatinine 1.5 TNR 1.7 H (0.8-1.5) mg/dL Glucose 113 H TNR 100 (75-100) mg/dL Calcium 8.6 TNR 9.6 (8.4-10.2) mg/dL AST 139 H TNR (5-40) units/L ALT 154 H TNR (7-56) units/L Alkaline Phosphatase 122 TNR (35-129) units/L Total Protein 8.2 TNR (6.3-8.2) g/dL Albumin 3.8 L TNR (3.9-5) g/dL 05/02/19 Range/Units 04:41 Sodium 140 (137-145) mmol/L Potassium 4.8 (3.6-5.0) mmol/L Chloride 97.2 L (98-107) mmol/L Carbon Dioxide 26 (22-30) mmol/L BUN 61 H (9-20) mg/dL Creatinine 1.8 H (0.8-1.5) mg/dL Glucose 98 (75-100) mg/dL Calcium 9.4 (8.4-10.2) mg/dL AST (5-40) units/L ALT (7-56) units/L Alkaline Phosphatase (35-129) units/L Total Protein (6.3-8.2) g/dL Albumin (3.9-5) g/dL - Imaging and Cardiology Echo: pending EKG: report reviewed - EKG Interpretation EKG: sinus rhythm EKG interpretations - Telemetry EKG Rhythm: Sinus Tachycardia Assessment and Plan Mr. Espinoza is a 34 y/o male who presented with SOB and ultimately experienced respiratory failure requiring intubation. Echocardiogram pending. Recommend trending troponins. Will otherwise continue supportive care. No anticoagulation at this time. The patient has been seen in conjunction with Dr. Sears, who agrees with the assessment and plan. - Patient Problems (1) Respiratory failure Current Visit: Yes Status: Acute (2) Congestive heart failure Current Visit: Yes Status: Suspected
--- NOTE | 2019-05-02 14:25 | Consultation ---
History of Present Illness Consult date: 05/02/19 Requesting physician: LOIDA CARBAJAL Reason for consult: hypoxemia History of present illness: 34 y/o morbidly obese male admitted with hypoxic and hypercapnic respiratory failure. patient current intubated and sedated so all history is derived from chart. Past History Past Medical History: other (unknown) Medications and Allergies Allergies Allergy/AdvReac Type Severity Reaction Status Date / Time No Known Allergies Allergy Verified 05/01/19 20:27 Active Meds: Active Medications Acetaminophen (Tylenol) 650 mg PO Q4H PRN PRN Reason: Pain MILD(1-3)/Fever >100.5/FREEMAN Dextrose (D50w (25gm) Vial) 50 gm IV Q30MIN PRN; Protocol PRN Reason: Hypoglycemia Enoxaparin Sodium (Enoxaparin) 40 mg SUB-Q QDAY@1000 [facility] Last Admin: 05/02/19 10:34 Dose: 40 mg Documented by: Fentanyl (Sublimaze) 50 mcg IV Q10MIN PRN PRN Reason: ANALGESIA Last Admin: 05/02/19 09:15 Dose: 50 mcg Documented by: Furosemide (Lasix) 20 mg IV BID@0600,1800 [facility] Last Admin: 05/02/19 06:40 Dose: 20 mg Documented by: Hydrophilic Ointment (Vaseline Lip Therapy) 1 applic TP Q2HR PRN PRN Reason: Dry Lips Fentanyl Citrate (Fentanyl Drip Premix) 2,000 mcg in 100 mls @ 10.195 mls/hr IV TITR [facility]; Protocol Last Admin: 05/02/19 12:02 Dose: 2 mcg/kg/hr, 20.39 mls/hr Documented by: Piperacillin Sod/Tazobactam Sod (Zosyn/Ns 4.5gm/100ml) 4.5 gm in 100 mls @ 200 mls/hr IV Q8HR [facility]; Protocol Last Admin: 05/02/19 13:36 Dose: 200 mls/hr Documented by: Metoprolol Tartrate (Metoprolol) 25 mg PO BID [facility] Last Admin: 05/02/19 11:54 Dose: 25 mg Documented by: Multi-Ingred Cream/Lotion/Oil/Oint (Artificial Tears Ophth Oint) 1 applic OU Q4HR PRN PRN Reason: Dry Eye(s) Ondansetron HCl (Zofran) 4 mg IV Q8H PRN PRN Reason: Nausea And Vomiting Sodium Chloride (Sodium Chloride Flush Syringe 10 Ml) 10 ml IV BID [facility] Last Admin: 05/02/19 10:35 Dose: 10 ml Documented by: Sodium Chloride (Sodium Chloride Flush Syringe 10 Ml) 10 ml IV PRN PRN PRN Reason: LINE FLUSH Review of Systems ROS unobtainable: due to endotracheal tube, due to mental status Physical Examination Vital signs: Vital Signs Temp Pulse Resp BP Pulse Ox 98.1 F 109 H 24 145/85 84 05/01/19 15:57 05/01/19 15:57 05/01/19 15:57 05/01/19 15:57 05/01/19 15:57 General appearance: other (morbidly obese male, sedated on vent) Eyes: non-icteric Neck: other (extremely large in circumference) Effort: normal Ascultation: Bilateral: diminished breath sounds (secondary to body habitus) Results - Laboratory Findings CBC and BMP: 05/02/19 04:41 05/02/19 04:41 ABG POC ABG pH 7.439 (7.35-7.45) 05/02/19 04:40 POC ABG pCO2 46.8 (35-45) H 05/02/19 04:40 POC ABG pO2 63 (80-105) L 05/02/19 04:40 POC ABG HCO3 31.7 (22-26 mml/L) 05/02/19 04:40 POC ABG Total CO2 33 (23-27mmol/L) 05/02/19 04:40 POC ABG O2 Sat 92 05/02/19 04:40 PT/INR, D-dimer PT 15.4 Sec. (12.2-14.9) H 05/01/19 Unknown INR 1.23 (0.87-1.13) H 05/01/19 Unknown Abnormal lab findings: Abnormal Labs 05/01/19 05/01/19 05/01/19 17:50 19:26 22:36 WBC MCH RDW Lymph % (Auto) [place] % (Auto) [place] # Seg Neutrophils % Seg Neutrophils # PT INR APTT POC ABG pH 7.272 L 7.331 L POC ABG pCO2 52.8 H POC ABG pO2 Sodium 136 L Potassium 6.5 H* Chloride 97.2 L BUN 60 H Creatinine Glucose 113 H Phosphorus Magnesium 2.40 H AST 139 H ALT 154 H Total Creatine Kinase CK-MB (CK-2) Troponin T NT-Pro-B Natriuret Pep Albumin 3.8 L Triglycerides HDL Cholesterol 05/01/19 05/01/19 05/01/19 Unknown Unknown Unknown WBC 16.1 H MCH RDW 17.2 H Lymph % (Auto) [place] % (Auto) 9.6 H [place] # 1.5 H Seg Neutrophils % 73.0 H Seg Neutrophils # 11.7 H PT 15.4 H INR 1.23 H APTT 22.7 L POC ABG pH POC ABG pCO2 POC ABG pO2 Sodium Potassium Chloride BUN Creatinine Glucose Phosphorus Magnesium AST ALT Total Creatine Kinase CK-MB (CK-2) Troponin T NT-Pro-B Natriuret Pep 6831 H Albumin Triglycerides HDL Cholesterol 05/01/19 05/02/19 05/02/19 Unknown 00:06 00:06 WBC MCH RDW Lymph % (Auto) [place] % (Auto) [place] # Seg Neutrophils % Seg Neutrophils # PT INR APTT POC ABG pH POC ABG pCO2 POC ABG pO2 Sodium Potassium Chloride BUN Creatinine Glucose Phosphorus 4.90 H Magnesium AST ALT Total Creatine Kinase 226 H CK-MB (CK-2) 5.7 H Troponin T 0.044 H NT-Pro-B Natriuret Pep Albumin Triglycerides 182 H HDL Cholesterol 18 L 05/02/19 05/02/19 05/02/19 02:08 04:40 04:41 WBC 17.6 H MCH 27 L RDW 17.4 H Lymph % (Auto) 10.2 L [place] % (Auto) 11.0 H [place] # 1.9 H Seg Neutrophils % 78.0 H Seg Neutrophils # 13.8 H PT INR APTT POC ABG pH POC ABG pCO2 46.8 H POC ABG pO2 63 L Sodium Potassium Chloride 96.3 L BUN 63 H Creatinine 1.7 H Glucose Phosphorus Magnesium AST ALT Total Creatine Kinase CK-MB (CK-2) Troponin T NT-Pro-B Natriuret Pep Albumin Triglycerides HDL Cholesterol 05/02/19 05/02/19 04:41 04:41 WBC MCH RDW Lymph % (Auto) [place] % (Auto) [place] # Seg Neutrophils % Seg Neutrophils # PT INR APTT POC ABG pH POC ABG pCO2 POC ABG pO2 Sodium Potassium Chloride 97.2 L BUN 61 H Creatinine 1.8 H Glucose Phosphorus Magnesium AST ALT Total Creatine Kinase CK-MB (CK-2) 5.2 H Troponin T 0.067 H D NT-Pro-B Natriuret Pep Albumin Triglycerides HDL Cholesterol - Diagnostic Findings Chest x-ray: image reviewed (cardiomegaly with bilateral pleural effusions) Assessment and Plan 34 y/o male with acute hypoxic, hypercapnic respiratory failure currently ventilated and sedated. 1. Will repeat ABG at 16:00 2. Continue current settings, goals would be to wean FiO2 down to 60% if possible 3. Needs daily net negative state 4. Likely will need trach but will aggressively try to wean. CCT 31 minutes.
--- NOTE | 2019-05-02 15:53 | Progress Note ---
Assessment and Plan Assessment and plan: s/p Cardiac arrest Resuscitated cardiology consulted Acute hypoxic respiratory failure Status post intubation, continue sedation, consult pulmonary Acute CHF, new onset, probably diastolic Diurese with IV lasix, monitor I/O, daily weights Cardiology to see. Added beta-jenny, no TIM inhibitor secondary to renal insufficiency Hypertension malignant Start antihypertensive, monitor blood pressure IV hydralazine as needed for further control Hyperkalemia, Now resolved Acute kidney injury due to ATN Repeat BMP in am Leukocytosis: To r/o SIRS versus Sepsis Continue zosyn, vanco, follow culture DVT prophylaxis with Lovenox Morbid obesity Full code status. History Interval history: Shortness of breath, cardiopulm arrest s/p intubated Hospitalist Physical - Physical exam Narrative exam: Gen: Not in acute distress,intubated, on vent, morbidly obese HEENT: Normocephalic, atraumatic Neck: supple, no JVD Heart: S1 and S2 reg, no murmurs, rubs or gallop Lungs: Clear to auscultation bilaterally, no wheeze Abd: soft, NT, non distended, normal bowel sounds Ext:No edema, no cyanosis Neuro: Intubated,sedated - Constitutional Vitals: Temp Pulse Resp BP Pulse Ox 97.2 F L 91 H 22 121/67 99 05/02/19 12:00 05/02/19 15:22 05/02/19 15:22 05/02/19 15:02 05/02/19 15:02 General appearance: Present: no acute distress Results - Labs CBC & Chem 7: 05/02/19 04:41 05/02/19 04:41 Labs: Laboratory Last Values WBC 17.6 K/mm3 (4.5-11.0) H 05/02/19 04:41 RBC 4.76 M/mm3 (3.65-5.03) 05/02/19 04:41 Hgb 12.9 gm/dl (11.8-15.2) 05/02/19 04:41 Hct 40.4 % (35.5-45.6) 05/02/19 04:41 MCV 85 fl (84-94) 05/02/19 04:41 MCH 27 pg (28-32) L 05/02/19 04:41 MCHC 32 % (32-34) 05/02/19 04:41 RDW 17.4 % (13.2-15.2) H 05/02/19 04:41 Plt Count 267 K/mm3 (140-440) 05/02/19 04:41 Lymph % (Auto) 10.2 % (13.4-35.0) L 05/02/19 04:41 [place] % (Auto) 11.0 % (0.0-7.3) H 05/02/19 04:41 Eos % (Auto) 0.1 % (0.0-4.3) 05/02/19 04:41 Baso % (Auto) 0.7 % (0.0-1.8) 05/02/19 04:41 Lymph # 1.8 K/mm3 (1.2-5.4) 05/02/19 04:41 [place] # 1.9 K/mm3 (0.0-0.8) H 05/02/19 04:41 Eos # 0.0 K/mm3 (0.0-0.4) 05/02/19 04:41 Baso # 0.1 K/mm3 (0.0-0.1) 05/02/19 04:41 Seg Neutrophils % 78.0 % (40.0-70.0) H 05/02/19 04:41 Seg Neutrophils # 13.8 K/mm3 (1.8-7.7) H 05/02/19 04:41 PT 15.4 Sec. (12.2-14.9) H 05/01/19 Unknown INR 1.23 (0.87-1.13) H 05/01/19 Unknown APTT 22.7 Sec. (24.2-36.6) L 05/01/19 Unknown POC ABG pH 7.439 (7.35-7.45) 05/02/19 04:40 POC ABG pCO2 46.8 (35-45) H 05/02/19 04:40 POC ABG pO2 63 (80-105) L 05/02/19 04:40 POC ABG HCO3 31.7 (22-26 mml/L) 05/02/19 04:40 POC ABG Total CO2 33 (23-27mmol/L) 05/02/19 04:40 POC ABG O2 Sat 92 05/02/19 04:40 POC ABG Base Excess 8 ((-2) - (+3)mmol/L) 05/02/19 04:40 FiO2 100 % 05/02/19 04:40 Sodium 140 mmol/L (137-145) 05/02/19 04:41 Potassium 4.8 mmol/L (3.6-5.0) 05/02/19 04:41 Chloride 97.2 mmol/L (98-107) L 05/02/19 04:41 Carbon Dioxide 26 mmol/L (22-30) 05/02/19 04:41 Anion Gap 22 mmol/L 05/02/19 04:41 BUN 61 mg/dL (9-20) H 05/02/19 04:41 Creatinine 1.8 mg/dL (0.8-1.5) H 05/02/19 04:41 Estimated GFR 53 ml/min 05/02/19 04:41 BUN/Creatinine Ratio 34 % 05/02/19 04:41 Glucose 98 mg/dL (75-100) 05/02/19 04:41 Calcium 9.4 mg/dL (8.4-10.2) 05/02/19 04:41 Phosphorus 4.90 mg/dL (2.5-4.5) H 05/02/19 00:06 Magnesium 2.30 mg/dL (1.7-2.3) 05/02/19 00:06 Total Bilirubin TNR 05/01/19 Unknown AST TNR 05/01/19 Unknown ALT TNR 05/01/19 Unknown Alkaline Phosphatase TNR 05/01/19 Unknown Total Creatine Kinase 131 units/L (55-170) 05/02/19 04:41 CK-MB (CK-2) 5.2 ng/mL (0.0-4.0) H 05/02/19 04:41 CK-MB (CK-2) Rel Index 3.9 (0-4) 05/02/19 04:41 Troponin T 0.067 ng/mL (0.00-0.029) H D 05/02/19 04:41 NT-Pro-B Natriuret Pep 6831 pg/mL (0-450) H 05/01/19 Unknown Total Protein TNR 05/01/19 Unknown Albumin TNR 05/01/19 Unknown Albumin/Globulin Ratio TNR 05/01/19 Unknown Triglycerides 182 mg/dL (2-149) H 05/02/19 00:06 Cholesterol 173 mg/dL (50-199) 05/02/19 00:06 LDL Cholesterol Direct 126 mg/dL (50-130) 05/02/19 00:06 HDL Cholesterol 18 mg/dL (40-59) L 05/02/19 00:06 Cholesterol/HDL Ratio 9.61 % 05/02/19 00:06 Active Medications - Current Medications Current Medications: Generic Name Dose Route Start Last Admin Trade Name Freq PRN Reason Stop Dose Admin Acetaminophen 650 mg 05/01/19 22:46 Tylenol PO Q4H PRN Pain MILD(1-3)/Fever >100.5/FREEMAN Dextrose 50 gm 05/01/19 20:24 D50w (25gm) Vial IV Q30MIN PRN Hypoglycemia Protocol Enoxaparin Sodium 40 mg 05/02/19 10:00 05/02/19 10:34 Enoxaparin SUB-Q 40 mg QDAY@1000 [facility] Administration Fentanyl 50 mcg 05/01/19 21:14 05/02/19 09:15 Sublimaze IV 50 mcg Q10MIN PRN Administration ANALGESIA Furosemide 20 mg 05/02/19 06:00 05/02/19 06:40 Lasix IV 20 mg BID@0600,1800 [facility] Administration Hydrophilic Ointment 1 applic 05/01/19 21:14 Vaseline Lip Therapy TP Q2HR PRN Dry Lips Fentanyl Citrate 2,000 mcg in 100 mls @ 10.195 mls/hr 05/01/19 22:00 05/02/19 14:56 Fentanyl Drip Premix IV 3 mcg/kg/hr TITR VICKEY 30.585 mls/hr Titration Protocol 1 MCG/KG/HR Piperacillin Sod/Tazobactam Sod 4.5 gm in 100 mls @ 200 mls/hr 05/02/19 06:00 05/02/19 13:36 Zosyn/Ns 4.5gm/100ml IV 200 mls/hr Q8HR VICKEY Administration Protocol Metoprolol Tartrate 25 mg 05/02/19 04:00 05/02/19 11:54 Metoprolol PO 25 mg BID VICKEY Administration Multi-Ingred Cream/Lotion/Oil/Oint 1 applic 05/01/19 21:14 Artificial Tears Ophth Oint OU Q4HR PRN Dry Eye(s) Ondansetron HCl 4 mg 05/01/19 22:46 Zofran IV Q8H PRN Nausea And Vomiting Sodium Chloride 10 ml 05/02/19 10:00 05/02/19 10:35 Sodium Chloride Flush Syringe 10 Ml IV 10 ml BID VICKEY Administration Sodium Chloride 10 ml 05/01/19 22:46 Sodium Chloride Flush Syringe 10 Ml IV PRN PRN LINE FLUSH
[2019-05-02 16:26] LABS: ABG Base Excess 5.8 mmol/L (-2.0-3.0); ABG HCO3 31.9 mmol/L (20.0-26.0); ABG Methemoglobin 0.6 % (0.0-1.5); ABG Oxygen Saturation 92.5 % (95.0-99.0); ABG PCO2 52.3 mm Hg; ABG PH 7.403 pH Units (7.350-7.450); ABG PO2 66.6 mm Hg (80.0-90.0)
[2019-05-02] MEDS ORDERED: FUROSEMIDE 20 MG/2 ML INJ IV ONE ×2 (20:50)
[2019-05-02] MEDS ORDERED: EPINEPHrine 1:10,000 1 MG/10 ML SYRINGE ONE (23:00)
[2019-05-02] MEDS ORDERED: KETAMINE 500 MG/5 ML VIAL MDV ONE (23:00)
[2019-05-02] MEDS ORDERED: CALCIUM CHLORIDE 1,000 MG/10 ML SYRINGE IV ONE (23:00)
[2019-05-02] MEDS ORDERED: SODIUM BICARB 8.4% 50 MEQ/50 ML SYRINGE IV ONE (23:00)
[2019-05-02] MEDS ORDERED: DEXTROSE 50% IN WATER (25GM) 50 ML SYRINGE IV ONE (23:00)
[2019-05-03] MEDS: fentaNYL DRIP Premix 2,000 MCG/100 ML BAG IV SCH ×9 (00:43→20:25)
--- NOTE | 2019-05-03 03:13 | XRay Report ---
CHEST 1 VIEW 05/03/2019 2:29 AM INDICATION / CLINICAL INFORMATION: follow up respiratory failure. COMPARISON: One view of the chest from 05/02/2019. FINDINGS: SUPPORT DEVICES: Stable esophagogastric tube positioning. HEART / MEDIASTINUM: Stable. LUNGS / PLEURA: Lung volumes are reduced with bilateral pulmonary opacities that likely represent ate lectasis. No significant pleural effusion or pneumothorax. ADDITIONAL FINDINGS: No significant additional findings. IMPRESSION: Stable appearance of the chest. Signer Name: Mina Calloway MD Signed: 05/03/2019 3:09 AM Workstation Name: [id number]
[2019-05-03 05:38] LABS: Hematocrit 41.5 % (35.5-45.6); Mean Corpuscular HGB Conc 31 % (32-34); Mean Corpuscular Volume 86 fl (84-94); Platelet Count 260 K/mm3 (140-440); Red Blood Count 4.85 M/mm3 (3.65-5.03); Red Cell Distribution Width 17.2 % (13.2-15.2)
[2019-05-03] MEDS: FUROSEMIDE 20 MG/2 ML INJ IV SCH (05:46)
[2019-05-03] MEDS: PIPERACIL/TAZOBACTA 4.5/NS 100 4.5 GM/100 ML VIAL IV SCH (05:46)
[2019-05-03 06:02] LABS: Calcium 8.9 mg/dL (8.4-10.2)
[2019-05-03] MEDS: ACETAMINOPHEN 325 MG TAB PO PRN ×4 (08:37→21:36)
--- NOTE | 2019-05-03 09:08 | Progress Note ---
Assessment and Plan Assessment and plan: s/p Cardiac arrest Resuscitated cardiology consulted, following Acute hypoxic respiratory failure Status post intubation, continue sedation, consulted pulmonary Acute CHF, new onset, probably diastolic Diurese with IV lasix, monitor I/O, daily weights Cardiology following. Added beta-jenny, no TIM inhibitor secondary to renal insufficiency Hypertension malignant Start antihypertensive, monitor blood pressure IV hydralazine as needed for further control Hyperkalemia, Now resolved Acute kidney injury due to ATN Repeat BMP in am Consult Nephrology Fever SIRS vs Sepsis Consult ID On empiric antibiotics Leukocytosis: To r/o SIRS versus Sepsis Continue Zosyn, Vanco, follow culture DVT prophylaxis with Lovenox Morbid obesity Full code status. History Interval history: Shortness of breath, cardiopulm arrest s/p intubated Fever of 101.2 Hospitalist Physical - Physical exam Narrative exam: Gen: Not in acute distress,intubated, on vent, morbidly obese HEENT: Normocephalic, atraumatic Neck: supple, no JVD Heart: S1 and S2 reg, no murmurs, rubs or gallop Lungs: Clear to auscultation bilaterally, no wheeze Abd: soft, NT, non distended, normal bowel sounds Ext:No edema, no cyanosis Neuro: Intubated,sedated - Constitutional Vitals: Temp Pulse Resp BP Pulse Ox 101.2 F H 112 H 18 100/42 93 05/03/19 08:00 05/03/19 08:30 05/03/19 08:30 05/03/19 08:30 05/03/19 08:30 General appearance: Present: no acute distress Results - Labs CBC & Chem 7: 05/03/19 05:05 05/03/19 05:05 Labs: Laboratory Last Values WBC 11.8 K/mm3 (4.5-11.0) H 05/03/19 05:05 RBC 4.85 M/mm3 (3.65-5.03) 05/03/19 05:05 Hgb 13.0 gm/dl (11.8-15.2) 05/03/19 05:05 Hct 41.5 % (35.5-45.6) 05/03/19 05:05 MCV 86 fl (84-94) 05/03/19 05:05 MCH 27 pg (28-32) L 05/03/19 05:05 MCHC 31 % (32-34) L 05/03/19 05:05 RDW 17.2 % (13.2-15.2) H 05/03/19 05:05 Plt Count 260 K/mm3 (140-440) 05/03/19 05:05 Lymph % (Auto) 10.2 % (13.4-35.0) L 05/02/19 04:41 Webb % (Auto) 11.0 % (0.0-7.3) H 05/02/19 04:41 Eos % (Auto) 0.1 % (0.0-4.3) 05/02/19 04:41 Baso % (Auto) 0.7 % (0.0-1.8) 05/02/19 04:41 Lymph # 1.8 K/mm3 (1.2-5.4) 05/02/19 04:41 Webb # 1.9 K/mm3 (0.0-0.8) H 05/02/19 04:41 Eos # 0.0 K/mm3 (0.0-0.4) 05/02/19 04:41 Baso # 0.1 K/mm3 (0.0-0.1) 05/02/19 04:41 Seg Neutrophils % 78.0 % (40.0-70.0) H 05/02/19 04:41 Seg Neutrophils # 13.8 K/mm3 (1.8-7.7) H 05/02/19 04:41 PT 15.4 Sec. (12.2-14.9) H 05/01/19 Unknown INR 1.23 (0.87-1.13) H 05/01/19 Unknown APTT 22.7 Sec. (24.2-36.6) L 05/01/19 Unknown POC ABG pH 7.436 (7.35-7.45) 05/03/19 04:35 ABG pH 7.403 pH Units (7.350-7.450) 05/02/19 16:05 POC ABG pCO2 54.0 (35-45) H 05/03/19 04:35 ABG pCO2 52.3 mm Hg 05/02/19 16:05 POC ABG pO2 63 (80-105) L 05/03/19 04:35 ABG pO2 66.6 mm Hg (80.0-90.0) L 05/02/19 16:05 POC ABG HCO3 36.3 (22-26 mml/L) 05/03/19 04:35 ABG HCO3 31.9 mmol/L (20.0-26.0) H 05/02/19 16:05 POC ABG Total CO2 38 (23-27mmol/L) 05/03/19 04:35 POC ABG O2 Sat 92 05/03/19 04:35 ABG O2 Saturation 92.5 % (95.0-99.0) L 05/02/19 16:05 ABG O2 Content 16.9 (0.0-44) 05/02/19 16:05 POC ABG Base Excess 12 ((-2) - (+3)mmol/L) 05/03/19 04:35 ABG Base Excess 5.8 mmol/L (-2.0-3.0) H 05/02/19 16:05 ABG Hemoglobin 13.3 gm/dl (14.0-18.0) L 05/02/19 16:05 ABG Carboxyhemoglobin 1.6 % (0.0-5.0) 05/02/19 16:05 ABG Methemoglobin 0.6 % (0.0-1.5) 05/02/19 16:05 Oxyhemoglobin 90.6 % (95.0-99.0) L 05/02/19 16:05 FiO2 100 % 05/03/19 04:35 Sodium 144 mmol/L (137-145) 05/03/19 05:05 Potassium 5.0 mmol/L (3.6-5.0) 05/03/19 05:05 Chloride 99.9 mmol/L (98-107) 05/03/19 05:05 Carbon Dioxide 29 mmol/L (22-30) 05/03/19 05:05 Anion Gap 20 mmol/L 05/03/19 05:05 BUN 52 mg/dL (9-20) H 05/03/19 05:05 Creatinine 1.9 mg/dL (0.8-1.5) H 05/03/19 05:05 Estimated GFR 50 ml/min 05/03/19 05:05 BUN/Creatinine Ratio 27 % 05/03/19 05:05 Glucose 103 mg/dL (75-100) H 05/03/19 05:05 Calcium 8.9 mg/dL (8.4-10.2) 05/03/19 05:05 Phosphorus 4.90 mg/dL (2.5-4.5) H 05/02/19 00:06 Magnesium 2.30 mg/dL (1.7-2.3) 05/02/19 00:06 Total Bilirubin TNR 05/01/19 Unknown AST TNR 05/01/19 Unknown ALT TNR 05/01/19 Unknown Alkaline Phosphatase TNR 05/01/19 Unknown Total Creatine Kinase 131 units/L (55-170) 05/02/19 04:41 CK-MB (CK-2) 5.2 ng/mL (0.0-4.0) H 05/02/19 04:41 CK-MB (CK-2) Rel Index 3.9 (0-4) 05/02/19 04:41 Troponin T 0.067 ng/mL (0.00-0.029) H D 05/02/19 04:41 NT-Pro-B Natriuret Pep 6831 pg/mL (0-450) H 05/01/19 Unknown Total Protein TNR 05/01/19 Unknown Albumin TNR 05/01/19 Unknown Albumin/Globulin Ratio TNR 05/01/19 Unknown Triglycerides 182 mg/dL (2-149) H 05/02/19 00:06 Cholesterol 173 mg/dL (50-199) 05/02/19 00:06 LDL Cholesterol Direct 126 mg/dL (50-130) 05/02/19 00:06 HDL Cholesterol 18 mg/dL (40-59) L 05/02/19 00:06 Cholesterol/HDL Ratio 9.61 % 05/02/19 00:06 Active Medications - Current Medications Current Medications: Generic Name Dose Route Start Last Admin Trade Name Freq PRN Reason Stop Dose Admin Acetaminophen 650 mg 05/01/19 22:46 05/03/19 08:37 Tylenol PO 650 mg Q4H PRN Administration Pain MILD(1-3)/Fever >100.5/FREEMAN Dextrose 50 gm 05/01/19 20:24 D50w (25gm) Vial IV Q30MIN PRN Hypoglycemia Protocol Enoxaparin Sodium 40 mg 05/02/19 10:00 05/02/19 10:34 Enoxaparin SUB-Q 40 mg QDAY@1000 VICKEY Administration Famotidine 20 mg 05/03/19 10:00 Pepcid IV BID VICKEY Furosemide 20 mg 05/02/19 06:00 05/03/19 05:46 Lasix IV 20 mg BID@0600,1800 VICKEY Administration Hydrophilic Ointment 1 applic 05/01/19 21:14 Vaseline Lip Therapy TP Q2HR PRN Dry Lips Fentanyl Citrate 2,000 mcg in 100 mls @ 10.195 mls/hr 05/01/19 22:00 05/03/19 08:37 Fentanyl Drip Premix IV 4 mcg/kg/hr TITR VICKEY 40.78 mls/hr Administration Protocol 1 MCG/KG/HR Piperacillin Sod/Tazobactam Sod 4.5 gm in 100 mls @ 200 mls/hr 05/02/19 06:00 05/03/19 05:46 Zosyn/Ns 4.5gm/100ml IV 05/05/19 23:59 200 mls/hr Q8HR VICKEY Administration Protocol Propofol 1,000 mg in 100 mls @ 7.011 mls/hr 05/03/19 04:00 05/03/19 09:07 Diprivan 10 Mg/Ml IV 0 mcg/kg/min TITR VICKEY 0 mls/hr Titration Protocol 5 MCG/KG/MIN Metoprolol Tartrate 25 mg 05/02/19 04:00 05/02/19 21:44 Metoprolol PO 25 mg BID VICKEY Administration Multi-Ingred Cream/Lotion/Oil/Oint 1 applic 05/01/19 21:14 Artificial Tears Ophth Oint OU Q4HR PRN Dry Eye(s) Ondansetron HCl 4 mg 05/01/19 22:46 Zofran IV Q8H PRN Nausea And Vomiting Sodium Chloride 10 ml 05/02/19 10:00 05/02/19 21:45 Sodium Chloride Flush Syringe 10 Ml IV 10 ml BID VICKEY Administration Sodium Chloride 10 ml 05/01/19 22:46 Sodium Chloride Flush Syringe 10 Ml IV PRN PRN LINE FLUSH
[2019-05-03] MEDS: FAMOTIDINE 20 MG/2 ML INJ IV SCH ×2 (09:48→21:37)
[2019-05-03] MEDS: ENOXAPARIN 40 MG/0.4 ML INJ SUB-Q SCH ×2 (09:48→21:37)
[2019-05-03] MEDS ORDERED: VANCOMYCIN PHARMACY TO DOSE IV SCH (10:00)
[2019-05-03] MEDS: METOPROLOL TARTRATE 25 MG TAB PO SCH ×2 (10:47→21:36)
[2019-05-03] MEDS ORDERED: VANCOMYCIN 2,000 MG in SODIUM CHLORIDE 0.9% 500 ML 500 ML IV SCH (11:00)
[2019-05-03 11:10] LABS: Bacteria,Urine 1+ /HPF (Negative); Bilirubin,Urine NEG (Negative); Blood,Urine LG (Negative); Color,Urine Yellow (Yellow); Mucus,Urine FEW /HPF; Protein,Urine <15 mg/dL mg/dL (Negative); Urobilinogen,Urine < 2.0 mg/dL (<2.0)
--- NOTE | 2019-05-03 11:14 | Consultation ---
History of Present Illness - Reason for Consult Consult date: 05/03/19 Fever Requesting physician: LOIDA CARBAJAL - History of Present Illness The patient is a 34-year-old male with obesity who came into the emergency room on 05/01/2019 with complaints of shortness of breath. Patient was noted to be hypoxic, cyanotic and was subsequently intubated. Noted to be in acute hypoxic and hypercapnic respiratory failure. Apparently, the patient had been using CPAP at home. He was empirically started on vancomycin and Zosyn. Patient was afebrile for the first 2 days of hospitalization, today he developed a fever of 101.2F and hence infectious diseases was consulted. He remains intubated. Review of Systems: Sedated, intubated, unable to provide history or ROS Past History Past Medical History: other (unknown) Family history: no significant family history (unable to obtain, intubated) Medications and Allergies Allergies Allergy/AdvReac Type Severity Reaction Status Date / Time No Known Allergies Allergy Verified 05/01/19 20:27 Active Meds: Active Medications Acetaminophen (Tylenol) 650 mg PO Q4H PRN PRN Reason: Pain MILD(1-3)/Fever >100.5/FREEMAN Last Admin: 05/03/19 08:37 Dose: 650 mg Documented by: Dextrose (D50w (25gm) Vial) 50 gm IV Q30MIN PRN; Protocol PRN Reason: Hypoglycemia Enoxaparin Sodium (Enoxaparin) 40 mg SUB-Q BID VICKEY Famotidine (Pepcid) 20 mg IV BID [facility] Last Admin: 05/03/19 09:48 Dose: 20 mg Documented by: Hydrophilic Ointment (Vaseline Lip Therapy) 1 applic TP Q2HR PRN PRN Reason: Dry Lips Fentanyl Citrate (Fentanyl Drip Premix) 2,000 mcg in 100 mls @ 10.195 mls/hr IV TITR VICKEY; Protocol Last Titration: 05/03/19 09:36 Dose: 3 mcg/kg/hr, 30.585 mls/hr Documented by: Piperacillin Sod/Tazobactam Sod (Zosyn/Ns 4.5gm/100ml) 4.5 gm in 100 mls @ 200 mls/hr IV Q8HR VICKEY; Protocol Last Admin: 05/03/19 05:46 Dose: 200 mls/hr Documented by: Propofol (Diprivan 10 Mg/Ml) 1,000 mg in 100 mls @ 7.011 mls/hr IV TITR [facility]; Protocol Last Titration: 05/03/19 10:46 Dose: 10 mcg/kg/min, 14.022 mls/hr Documented by: Vancomycin HCl 2,000 mg/ (Sodium Chloride) 540 mls @ 250 mls/hr IV Q12H VICKEY Metoprolol Tartrate (Metoprolol) 25 mg PO BID [facility] Last Admin: 05/03/19 10:47 Dose: Not Given Documented by: Multi-Ingred Cream/Lotion/Oil/Oint (Artificial Tears Ophth Oint) 1 applic OU Q4HR PRN PRN Reason: Dry Eye(s) Ondansetron HCl (Zofran) 4 mg IV Q8H PRN PRN Reason: Nausea And Vomiting Sodium Chloride (Sodium Chloride Flush Syringe 10 Ml) 10 ml IV BID [facility] Last Admin: 05/03/19 09:48 Dose: 10 ml Documented by: Sodium Chloride (Sodium Chloride Flush Syringe 10 Ml) 10 ml IV PRN PRN PRN Reason: LINE FLUSH Physical Examination - Physical Exam Narrative exam: Physical Exam: Constitutional: sedated, intubated. Morbid obesity Head, Ears, Nose: Normocephalic, atraumatic. External ears, nose normal Eyes: Conjunctivae/corneas clear. No icterus. No ptosis. Neck: intubated. Oral: intubated Cardiovascular: S1, S2 normal. Respiratory: Good air entry, clear to auscultation bilaterally GI: Soft, non-tender; bowel sounds normal. No peritoneal signs Musculoskeletal: No pedal edema, no cyanosis. Skin: No rash or abscess Hem/Lymphatic: No palpable cervical or supraclavicular nodes. No lymphangitis Psych: no agitation Neurological: sedated, intubated, on vent - Constitutional Vitals: Vital Signs Temp Pulse Resp BP Pulse Ox 101.2 F H 108 H 22 71/47 92 05/03/19 08:00 05/03/19 10:47 05/03/19 10:31 05/03/19 10:47 05/03/19 10:31 Temperature -Last 24 Hours Temperature 101.2 F Temperature 99.4 F Temperature 99.8 F Temperature 99.3 F Temperature 99.4 F Temperature 97.2 F Results - Labs CBC & Chem 7: 05/03/19 05:05 05/03/19 05:05 Labs: Abnormal lab results 05/02/19 05/02/19 05/02/19 Range/Units 16:05 20:27 20:39 WBC (4.5-11.0) K/mm3 MCH (28-32) pg MCHC (32-34) % RDW (13.2-15.2) % POC ABG pCO2 52.1 H 53.6 H (35-45) POC ABG pO2 55 L (80-105) ABG pO2 66.6 L (80.0-90.0) mm Hg ABG HCO3 31.9 H (20.0-26.0) mmol/L ABG O2 Saturation 92.5 L (95.0-99.0) % ABG Base Excess 5.8 H (-2.0-3.0) mmol/L ABG Hemoglobin 13.3 L (14.0-18.0) gm/dl Oxyhemoglobin 90.6 L (95.0-99.0) % BUN (9-20) mg/dL Creatinine (0.8-1.5) mg/dL Glucose (75-100) mg/dL 05/03/19 05/03/19 05/03/19 Range/Units 04:35 05:05 05:05 WBC 11.8 H (4.5-11.0) K/mm3 MCH 27 L (28-32) pg MCHC 31 L (32-34) % RDW 17.2 H (13.2-15.2) % POC ABG pCO2 54.0 H (35-45) POC ABG pO2 63 L (80-105) ABG pO2 (80.0-90.0) mm Hg ABG HCO3 (20.0-26.0) mmol/L ABG O2 Saturation (95.0-99.0) % ABG Base Excess (-2.0-3.0) mmol/L ABG Hemoglobin (14.0-18.0) gm/dl Oxyhemoglobin (95.0-99.0) % BUN 52 H (9-20) mg/dL Creatinine 1.9 H (0.8-1.5) mg/dL Glucose 103 H (75-100) mg/dL - Imaging and Cardiology Chest x-ray: report reviewed, image reviewed (b/l mild interstitial edema, haziness of b/l lower lung [place] ?due to body habitus ) Assessment and Plan Cultures: None this admission A/P: 34-year-old male with obesity admitted with: #Fever, SIRS: unclear if infectious. Patient was afebrile for the first 2 days of hospitalization, today he developed a fever of 101.2F. ?aspiration related. Apparently was using CPAP. No blood cultures done on admission. #Acute hypoxic hypercapneic respiratory failure, possibly obesity hypoventilat ion syndrome: on the vent. Pulmonary managing. #Morbid obesity #CARLA: dose abx accordingly. #Elevated LFTs: RUQ US ordered. Recheck CMP. Recs: sputum culture ordered Zosyn and Vancomycin d/jaquelin started Ceftriaxone, Flagyl and Azithromycin procalcitonin ordered for AM RUQ US ordered. Recheck CMP Burke Wilks MD, FACP [facility] C: [phone] O: [phone] F: [phone]
--- NOTE | 2019-05-03 12:05 | Progress Note ---
Assessment and Plan 34 y/o male with acute hypoxic, hypercapnic respiratory failure currently ventilated and sedated. 1. Will repeat ABG at 14:00 2. Continue current settings, goals would be to wean FiO2 down to 60% if possible 3. Needs daily net negative state. BP will not a tolerate further diuresis 4. Likely will need trach but will aggressively try to wean. 5. Will order Art Line 6. Levophed for BP CCT 31 minutes. Subjective Date of service: 05/03/19 Interval history: Still hypoxic. had some low BP's. Started on pressor. Objective Vital Signs - 12hr 05/03/19 05/03/19 05/03/19 00:10 00:11 00:21 Temperature Pulse Rate 92 H 91 H 93 H Pulse Rate [ From Monitor] Respiratory 22 22 Rate Blood Pressure 108/52 112/57 112/57 O2 Sat by Pulse 95 94 94 Oximetry 05/03/19 05/03/19 05/03/19 00:30 00:41 00:51 Temperature Pulse Rate 90 109 H 122 H Pulse Rate [ From Monitor] Respiratory 22 13 21 Rate Blood Pressure 112/53 112/57 140/70 O2 Sat by Pulse 93 94 87 Oximetry 05/03/19 05/03/19 05/03/19 01:01 01:11 01:21 Temperature Pulse Rate 128 H 122 H 138 H Pulse Rate [ From Monitor] Respiratory 14 16 11 L Rate Blood Pressure 140/70 130/80 130/80 O2 Sat by Pulse 83 L 86 61 L Oximetry 05/03/19 05/03/19 05/03/19 01:30 01:41 01:51 Temperature Pulse Rate 111 H 103 H 100 H Pulse Rate [ From Monitor] Respiratory 22 22 22 Rate Blood Pressure 111/47 111/47 111/47 O2 Sat by Pulse 89 93 96 Oximetry 05/03/19 05/03/19 05/03/19 02:00 02:10 02:20 Temperature Pulse Rate 99 H 96 H 96 H Pulse Rate [ From Monitor] Respiratory 22 22 22 Rate Blood Pressure 102/44 102/44 102/44 O2 Sat by Pulse 96 97 97 Oximetry 05/03/19 05/03/19 05/03/19 02:31 02:41 02:51 Temperature Pulse Rate 139 H 131 H 119 H Pulse Rate [ From Monitor] Respiratory 17 21 22 Rate Blood Pressure 90/46 124/58 124/58 O2 Sat by Pulse 88 89 88 Oximetry 05/03/19 05/03/19 05/03/19 03:00 03:11 03:21 Temperature 99.4 F Pulse Rate 126 H 124 H 120 H Pulse Rate [ From Monitor] Respiratory 22 19 17 Rate Blood Pressure 111/47 111/47 111/47 O2 Sat by Pulse 87 88 89 Oximetry 05/03/19 05/03/19 05/03/19 03:30 03:41 03:51 Temperature Pulse Rate 125 H 117 H 116 H Pulse Rate [ From Monitor] Respiratory 22 21 22 Rate Blood Pressure 114/62 114/62 114/62 O2 Sat by Pulse 89 87 91 Oximetry 05/03/19 05/03/19 05/03/19 04:00 04:11 04:15 Temperature Pulse Rate 124 H 120 H 126 H Pulse Rate [ 124 H From Monitor] Respiratory 21 17 Rate Blood Pressure 122/56 122/56 122/56 O2 Sat by Pulse 90 90 87 Oximetry 05/03/19 05/03/19 05/03/19 04:21 04:30 04:41 Temperature Pulse Rate 115 H 118 H 105 H Pulse Rate [ From Monitor] Respiratory 22 30 H 22 Rate Blood Pressure 122/56 119/55 119/55 O2 Sat by Pulse 89 92 96 Oximetry 05/03/19 05/03/19 05/03/19 04:51 05:01 05:11 Temperature Pulse Rate 103 H 129 H 109 H Pulse Rate [ From Monitor] Respiratory 22 29 H 21 Rate Blood Pressure 119/55 114/50 114/50 O2 Sat by Pulse 97 86 92 Oximetry 05/03/19 05/03/19 05/03/19 05:21 05:30 05:41 Temperature Pulse Rate 101 H 102 H 105 H Pulse Rate [ From Monitor] Respiratory 22 22 21 Rate Blood Pressure 114/50 103/41 103/41 O2 Sat by Pulse 96 96 96 Oximetry 05/03/19 05/03/19 05/03/19 05:51 06:00 06:11 Temperature Pulse Rate 105 H 107 H 99 H Pulse Rate [ From Monitor] Respiratory 22 17 21 Rate Blood Pressure 103/41 110/43 110/43 O2 Sat by Pulse 96 92 98 Oximetry 05/03/19 05/03/19 05/03/19 06:21 06:30 06:41 Temperature Pulse Rate 97 H 96 H 97 H Pulse Rate [ From Monitor] Respiratory 22 22 21 Rate Blood Pressure 103/41 98/41 98/41 O2 Sat by Pulse 98 98 98 Oximetry 05/03/19 05/03/19 05/03/19 06:51 07:00 07:11 Temperature Pulse Rate 95 H 94 H 95 H Pulse Rate [ From Monitor] Respiratory 22 22 22 Rate Blood Pressure 98/41 99/38 99/38 O2 Sat by Pulse 98 97 97 Oximetry 05/03/19 05/03/19 05/03/19 07:21 07:30 07:41 Temperature Pulse Rate 94 H 92 H 118 H Pulse Rate [ From Monitor] Respiratory 22 22 20 Rate Blood Pressure 99/38 97/42 97/42 O2 Sat by Pulse 97 96 84 Oximetry 05/03/19 05/03/19 05/03/19 07:43 07:51 08:00 Temperature 101.2 F H Pulse Rate 120 H 119 H 111 H Pulse Rate [ 109 H From Monitor] Respiratory 12 21 Rate Blood Pressure 97/42 97/42 104/38 O2 Sat by Pulse 90 88 93 Oximetry 05/03/19 05/03/19 05/03/19 08:11 08:21 08:30 Temperature Pulse Rate 118 H 121 H 112 H Pulse Rate [ From Monitor] Respiratory 21 13 18 Rate Blood Pressure 104/38 104/38 100/42 O2 Sat by Pulse 93 92 93 Oximetry 05/03/19 05/03/19 05/03/19 08:41 08:51 09:00 Temperature Pulse Rate 97 H 96 H 92 H Pulse Rate [ From Monitor] Respiratory 22 22 22 Rate Blood Pressure 100/42 100/42 94/34 O2 Sat by Pulse 98 99 99 Oximetry 05/03/19 05/03/19 05/03/19 09:11 09:21 09:30 Temperature Pulse Rate 92 H 90 89 Pulse Rate [ From Monitor] Respiratory 22 22 22 Rate Blood Pressure 94/34 94/34 95/36 O2 Sat by Pulse 100 100 100 Oximetry 05/03/19 05/03/19 05/03/19 09:41 09:51 10:00 Temperature Pulse Rate 91 H 131 H 110 H Pulse Rate [ From Monitor] Respiratory 22 14 22 Rate Blood Pressure 95/36 76/47 71/47 O2 Sat by Pulse 100 83 L 94 Oximetry 05/03/19 05/03/19 05/03/19 10:11 10:21 10:31 Temperature Pulse Rate 94 H 90 104 H Pulse Rate [ From Monitor] Respiratory 22 22 22 Rate Blood Pressure 71/47 71/47 71/47 O2 Sat by Pulse 96 98 92 Oximetry 05/03/19 05/03/19 05/03/19 10:41 10:47 10:51 Temperature Pulse Rate 96 H 108 H 92 H Pulse Rate [ From Monitor] Respiratory 22 20 Rate Blood Pressure 71/47 71/47 108/46 O2 Sat by Pulse 97 97 Oximetry 05/03/19 05/03/19 05/03/19 11:00 11:11 11:21 Temperature Pulse Rate 90 89 90 Pulse Rate [ From Monitor] Respiratory 13 22 22 Rate Blood Pressure 107/48 107/48 107/48 O2 Sat by Pulse 99 99 100 Oximetry 05/03/19 05/03/19 05/03/19 11:30 11:41 11:55 Temperature Pulse Rate 88 91 H 89 Pulse Rate [ From Monitor] Respiratory 22 22 Rate Blood Pressure 110/46 110/46 O2 Sat by Pulse 100 100 Oximetry Constitutional: other (morbidly obese male, sedated on vent) Eyes: non-icteric Neck: other (extremely large in circumference) Effort: normal Ascultation: Bilateral: diminished breath sounds (secondary to body habitus) CBC and BMP: 05/03/19 05:05 05/03/19 05:05 ABG, PT/INR, D-dimer: ABG POC ABG pH 7.436 (7.35-7.45) 05/03/19 04:35 ABG pH 7.403 pH Units (7.350-7.450) 05/02/19 16:05 POC ABG pCO2 54.0 (35-45) H 05/03/19 04:35 ABG pCO2 52.3 mm Hg 05/02/19 16:05 POC ABG pO2 63 (80-105) L 05/03/19 04:35 ABG pO2 66.6 mm Hg (80.0-90.0) L 05/02/19 16:05 POC ABG HCO3 36.3 (22-26 mml/L) 05/03/19 04:35 POC ABG Total CO2 38 (23-27mmol/L) 05/03/19 04:35 POC ABG O2 Sat 92 05/03/19 04:35 ABG O2 Saturation 92.5 % (95.0-99.0) L 05/02/19 16:05 PT/INR, D-dimer PT 15.4 Sec. (12.2-14.9) H 05/01/19 Unknown INR 1.23 (0.87-1.13) H 05/01/19 Unknown Abnormal lab findings: Abnormal Labs 05/01/19 05/01/19 05/01/19 17:50 19:26 22:36 WBC MCH MCHC RDW Lymph % (Auto) [place] % (Auto) [place] # Seg Neutrophils % Seg Neutrophils # PT INR APTT POC ABG pH 7.272 L 7.331 L POC ABG pCO2 52.8 H POC ABG pO2 ABG pO2 ABG HCO3 ABG O2 Saturation ABG Base Excess ABG Hemoglobin Oxyhemoglobin Sodium 136 L Potassium 6.5 H* Chloride 97.2 L BUN 60 H Creatinine Glucose 113 H Phosphorus Magnesium 2.40 H AST 139 H ALT 154 H Total Creatine Kinase CK-MB (CK-2) Troponin T NT-Pro-B Natriuret Pep Albumin 3.8 L Triglycerides HDL Cholesterol Urine WBC (Auto) 05/01/19 05/01/19 05/01/19 Unknown Unknown Unknown WBC 16.1 H MCH MCHC RDW 17.2 H Lymph % (Auto) [place] % (Auto) 9.6 H [place] # 1.5 H Seg Neutrophils % 73.0 H Seg Neutrophils # 11.7 H PT 15.4 H INR 1.23 H APTT 22.7 L POC ABG pH POC ABG pCO2 POC ABG pO2 ABG pO2 ABG HCO3 ABG O2 Saturation ABG Base Excess ABG Hemoglobin Oxyhemoglobin Sodium Potassium Chloride BUN Creatinine Glucose Phosphorus Magnesium AST ALT Total Creatine Kinase CK-MB (CK-2) Troponin T NT-Pro-B Natriuret Pep 6831 H Albumin Triglycerides HDL Cholesterol Urine WBC (Auto) 05/01/19 05/02/19 05/02/19 Unknown 00:06 00:06 WBC MCH MCHC RDW Lymph % (Auto) [place] % (Auto) [place] # Seg Neutrophils % Seg Neutrophils # PT INR APTT POC ABG pH POC ABG pCO2 POC ABG pO2 ABG pO2 ABG HCO3 ABG O2 Saturation ABG Base Excess ABG Hemoglobin Oxyhemoglobin Sodium Potassium Chloride BUN Creatinine Glucose Phosphorus 4.90 H Magnesium AST ALT Total Creatine Kinase 226 H CK-MB (CK-2) 5.7 H Troponin T 0.044 H NT-Pro-B Natriuret Pep Albumin Triglycerides 182 H HDL Cholesterol 18 L Urine WBC (Auto) 05/02/19 05/02/19 05/02/19 02:08 04:40 04:41 WBC 17.6 H MCH 27 L MCHC RDW 17.4 H Lymph % (Auto) 10.2 L [place] % (Auto) 11.0 H [place] # 1.9 H Seg Neutrophils % 78.0 H Seg Neutrophils # 13.8 H PT INR APTT POC ABG pH POC ABG pCO2 46.8 H POC ABG pO2 63 L ABG pO2 ABG HCO3 ABG O2 Saturation ABG Base Excess ABG Hemoglobin Oxyhemoglobin Sodium Potassium Chloride 96.3 L BUN 63 H Creatinine 1.7 H Glucose Phosphorus Magnesium AST ALT Total Creatine Kinase CK-MB (CK-2) Troponin T NT-Pro-B Natriuret Pep Albumin Triglycerides HDL Cholesterol Urine WBC (Auto) 05/02/19 05/02/19 05/02/19 04:41 04:41 16:05 WBC MCH MCHC RDW Lymph % (Auto) [place] % (Auto) [place] # Seg Neutrophils % Seg Neutrophils # PT INR APTT POC ABG pH POC ABG pCO2 POC ABG pO2 ABG pO2 66.6 L ABG HCO3 31.9 H ABG O2 Saturation 92.5 L ABG Base Excess 5.8 H ABG Hemoglobin 13.3 L Oxyhemoglobin 90.6 L Sodium Potassium Chloride 97.2 L BUN 61 H Creatinine 1.8 H Glucose Phosphorus Magnesium AST ALT Total Creatine Kinase CK-MB (CK-2) 5.2 H Troponin T 0.067 H D NT-Pro-B Natriuret Pep Albumin Triglycerides HDL Cholesterol Urine WBC (Auto) 05/02/19 05/02/19 05/03/19 20:27 20:39 04:35 WBC MCH MCHC RDW Lymph % (Auto) [place] % (Auto) [place] # Seg Neutrophils % Seg Neutrophils # PT INR APTT POC ABG pH POC ABG pCO2 52.1 H 53.6 H 54.0 H POC ABG pO2 55 L 63 L ABG pO2 ABG HCO3 ABG O2 Saturation ABG Base Excess ABG Hemoglobin Oxyhemoglobin Sodium Potassium Chloride BUN Creatinine Glucose Phosphorus Magnesium AST ALT Total Creatine Kinase CK-MB (CK-2) Troponin T NT-Pro-B Natriuret Pep Albumin Triglycerides HDL Cholesterol Urine WBC (Auto) 05/03/19 05/03/19 05/03/19 05:05 05:05 10:55 WBC 11.8 H MCH 27 L MCHC 31 L RDW 17.2 H Lymph % (Auto) [place] % (Auto) [place] # Seg Neutrophils % Seg Neutrophils # PT INR APTT POC ABG pH POC ABG pCO2 POC ABG pO2 ABG pO2 ABG HCO3 ABG O2 Saturation ABG Base Excess ABG Hemoglobin Oxyhemoglobin Sodium Potassium Chloride BUN 52 H Creatinine 1.9 H Glucose 103 H Phosphorus Magnesium AST ALT Total Creatine Kinase CK-MB (CK-2) Troponin T NT-Pro-B Natriuret Pep Albumin Triglycerides HDL Cholesterol Urine WBC (Auto) 33.0 H
[2019-05-03] MEDS: cefTRIAXone/NS 2 GM/100 ML 2 GM/100 ML BAG IV SCH (12:44)
[2019-05-03] MEDS: metroNIDAZOLE/NS 500 MG/100 ML 500 MG/100 ML BAG IV SCH ×2 (13:22→21:37)
--- NOTE | 2019-05-03 14:25 | Consultation ---
History of Present Illness - Reason for Consult acute renal failure - History of Present Illness 34-year-old gentleman with morbid obesity, found with cyanosis difficulty with breathing and brought to the emergency room he required intubation review of systems unobtainable patient remains intubated and FiO2 100% he has had worsening renal function nephrology consulted for this. He was subsequently found to have a fever infectious diseases is following Past History Past Medical History: other (unknown) Family history: no significant family history (unable to obtain, intubated) Medications and Allergies Allergies Allergy/AdvReac Type Severity Reaction Status Date / Time No Known Allergies Allergy Verified 05/01/19 20:27 Active Meds: Active Medications Acetaminophen (Tylenol) 650 mg PO Q4H PRN PRN Reason: Pain MILD(1-3)/Fever >100.5/FREEMAN Last Admin: 05/03/19 12:44 Dose: 650 mg Documented by: Bumetanide (Bumex) 1 mg IV BID@0900,2100 VICKEY Bumetanide (Bumex) 1 mg IV ONCE ONE Stop: 05/03/19 14:15 Dextrose (D50w (25gm) Vial) 50 gm IV Q30MIN PRN; Protocol PRN Reason: Hypoglycemia Enoxaparin Sodium (Enoxaparin) 40 mg SUB-Q BID VICKEY Famotidine (Pepcid) 20 mg IV BID VICKEY Last Admin: 05/03/19 09:48 Dose: 20 mg Documented by: Hydrophilic Ointment (Vaseline Lip Therapy) 1 applic TP Q2HR PRN PRN Reason: Dry Lips Fentanyl Citrate (Fentanyl Drip Premix) 2,000 mcg in 100 mls @ 10.195 mls/hr IV TITR VICKEY; Protocol Last Admin: 05/03/19 13:47 Dose: 3 mcg/kg/hr, 30.585 mls/hr Documented by: Propofol (Diprivan 10 Mg/Ml) 1,000 mg in 100 mls @ 7.011 mls/hr IV TITR VICKEY; Protocol Last Admin: 05/03/19 11:35 Dose: 10 mcg/kg/min, 14.022 mls/hr Documented by: Ceftriaxone Sodium (Rocephin/Ns 2 Gm/100 Ml) 2 gm in 100 mls @ 200 mls/hr IV Q24HR [facility]KEY; Protocol Last Admin: 05/03/19 12:44 Dose: 200 mls/hr Documented by: Metronidazole (Flagyl 500 Mg/100 Ml) 500 mg in 100 mls @ 100 mls/hr IV Q8HR [facility]; Protocol Last Admin: 05/03/19 13:22 Dose: 100 mls/hr Documented by: Metoprolol Tartrate (Metoprolol) 25 mg PO BID [facility] Last Admin: 05/03/19 10:47 Dose: Not Given Documented by: Multi-Ingred Cream/Lotion/Oil/Oint (Artificial Tears Ophth Oint) 1 applic OU Q4HR PRN PRN Reason: Dry Eye(s) Ondansetron HCl (Zofran) 4 mg IV Q8H PRN PRN Reason: Nausea And Vomiting Sodium Chloride (Sodium Chloride Flush Syringe 10 Ml) 10 ml IV BID [facility] Last Admin: 05/03/19 09:48 Dose: 10 ml Documented by: Sodium Chloride (Sodium Chloride Flush Syringe 10 Ml) 10 ml IV PRN PRN PRN Reason: LINE FLUSH Review of Systems ROS unobtainable: due to mental status Exam - Vital Signs Vital signs: Vital Signs Temp Pulse Resp BP Pulse Ox 98.1 F 109 H 24 145/85 84 05/01/19 15:57 05/01/19 15:57 05/01/19 15:57 05/01/19 15:57 05/01/19 15:57 - General Appearance General appearance: obese, sedated on ventilator, intubated EENT: ATNC Neck: Present: trachea midline Respiratory: Decreased Breath Sounds Heart: regular, S1S2 Gastrointestinal: Present: normal, normoactive bowel sounds Integumentary: no rash Neurologic: other (sedated) Musculoskeletal: Present: deferred Psychiatric: mood/affect appropriate Results - Lab Results 05/03/19 05:05 05/03/19 05:05 Most recent lab results ABG pH 7.403 pH Units (7.350-7.450) 05/02/19 16:05 ABG pCO2 52.3 mm Hg 05/02/19 16:05 ABG pO2 66.6 mm Hg (80.0-90.0) L 05/02/19 16:05 ABG HCO3 31.9 mmol/L (20.0-26.0) H 05/02/19 16:05 ABG O2 Saturation 92.5 % (95.0-99.0) L 05/02/19 16:05 Calcium 8.9 mg/dL (8.4-10.2) 05/03/19 05:05 Phosphorus 4.90 mg/dL (2.5-4.5) H 05/02/19 00:06 Magnesium 2.30 mg/dL (1.7-2.3) 05/02/19 00:06 - Image Kidney/bladder ultrasound: other (I reviewed chest x-ray with edema) Assessment and Plan - Patient Problems (1) Acute kidney injury Current Visit: Yes Status: Acute Plan to address problem: Acute kidney injury Baseline creatinine unknown Kidney function is worsening Chest x-ray with concern for congestion We'll start diuretics Bumex 1 mg IV twice a day for now (2) Hypercapnic respiratory failure Current Visit: Yes Status: Acute Qualifiers: Chronicity: acute on chronic Qualified Code(s): J96.22 - Acute and chronic respiratory failure with hypercapnia Plan to address problem: Acute on chronic respiratory failure with hypercapnia Patient is currently intubated FiO2 100% chest x-ray with some concern for congestion Possible pneumonia as well We'll initiate diuretics Bumex 1 with a IV twice a day Continue antibiotics (3) Anemia Current Visit: Yes Status: Acute Plan to address problem: Mild anemia Monitor CBC (4) Fever Current Visit: Yes Status: Acute Plan to address problem: Fever workup for infectious causes Infectious disease is following
--- NOTE | 2019-05-03 14:46 | Ultrasound Report ---
LIMITED RUQ ABDOMINAL ULTRASOUND INDICATION: Elevated LFTs. COMPARISON: No relevant prior imaging study available. FINDINGS: Pancreas: Visualized portions show no significant abnormality. Abdominal Aorta: No significant abnormality. IVC: No significant abnormality. Liver: The liver measures 13.1 cm in length. The liver parenchyma is echogenic consistent with diffu se fatty infiltration. No obvious mass.. Normal hepatopedal blood flow in the main portal vein. Gallbladder: A mild degree of sludge is suspected in the gallbladder. There is mild thickening of the anterior gallbladder wall measuring up to 4 mm. No abnormal distention or surrounding fluid.. Bile ducts: No significant abnormality. Common bile duct measures 5.5 mm. Right kidney: No significant abnormality visualized.. Free fluid: None. Additional Findings: None. IMPRESSION: Fatty infiltration throughout the liver. Small amount of sludge in the gallbladder.. Signer Name: Doni Jeffrey Jr, MD Signed: 05/03/2019 2:42 PM Workstation Name: [id number]
[2019-05-03] MEDS ORDERED: BUMETANIDE 1 MG/4 ML INJ IV ONE (15:00)
--- NOTE | 2019-05-03 16:04 | Progress Note ---
Assessment and Plan Echo reviewed - TDS, EF 55-60%, mild LVH, mild TR, RVSP 40mmHg. Cont present supportive management. Blood cultures pending. The patient has been seen in conjunction with Dr. Kolb who agrees with the assessment and plan of care. - Patient Problems (1) Acute respiratory failure Current Visit: Yes Status: Acute (2) Acute heart failure with preserved ejection fraction Current Visit: Yes Status: Acute (3) Acute kidney injury Current Visit: Yes Status: Acute (4) Anemia Current Visit: Yes Status: Acute (5) Morbid obesity Current Visit: Yes Status: Chronic (6) UTI (urinary tract infection) Current Visit: Yes Status: Acute (7) Fever Current Visit: Yes Status: Acute (8) Sepsis Current Visit: Yes Status: Suspected (9) Elevated troponin Current Visit: Yes Status: Acute (10) NSVT (nonsustained ventricular tachycardia) Current Visit: Yes Status: Acute (11) LANDON (obstructive sleep apnea) Current Visit: Yes Status: Suspected Subjective Date of service: 05/03/19 Principal diagnosis: HF; resp failure Interval history: pt remains intubated, agitated requiring sedation, hypotensive. in ST on tele HR 120s. no family at bedside. Objective Last Vital Signs Temp 101.3 F H 05/03/19 15:52 Pulse 82 05/03/19 15:51 Resp 22 05/03/19 15:51 BP 106/41 05/03/19 15:51 Pulse Ox 99 05/03/19 15:51 - Physical Examination General: Other (intubated, sedated) HEENT: Positive: PERRL Neck: Positive: trachea midline Cardiac: Positive: Regular Rhythm, S1/S2 Lungs: Positive: Decreased Breath Sounds, Oxygen, Ventilated Respirations Neuro: Positive: Other (intubated, sedated) Abdomen: Positive: Unremarkable Skin: Positive: Clear Musculoskeletal: Decreased Range of Motion Extremities: Present: normal - Labs and Meds CBC 05/03/19 Range/Units 05:05 WBC 11.8 H (4.5-11.0) K/mm3 RBC 4.85 (3.65-5.03) M/mm3 Hgb 13.0 (11.8-15.2) gm/dl Hct 41.5 (35.5-45.6) % Plt Count 260 (140-440) K/mm3 Comprehensive Metabolic Panel 05/03/19 Range/Units 05:05 Sodium 144 (137-145) mmol/L Potassium 5.0 (3.6-5.0) mmol/L Chloride 99.9 (98-107) mmol/L Carbon Dioxide 29 (22-30) mmol/L BUN 52 H (9-20) mg/dL Creatinine 1.9 H (0.8-1.5) mg/dL Glucose 103 H (75-100) mg/dL Calcium 8.9 (8.4-10.2) mg/dL - Imaging and Cardiology EKG: image reviewed Echo: report reviewed - Telemetry EKG Rhythm: Sinus Tachycardia
[2019-05-03] MEDS ORDERED: BUMETANIDE 1 MG/4 ML INJ IV SCH (21:00)
[2019-05-04] MEDS: fentaNYL DRIP Premix 2,000 MCG/100 ML BAG IV SCH ×5 (00:44→21:51)
[2019-05-04] MEDS: metroNIDAZOLE/NS 500 MG/100 ML 500 MG/100 ML BAG IV SCH ×3 (05:20→21:30)
[2019-05-04 07:17] LABS: Mean Corpuscular HGB Conc 31 % (32-34); Mean Corpuscular Volume 89 fl (84-94); Platelet Count 265 K/mm3 (140-440); Red Blood Count 4.76 M/mm3 (3.65-5.03); Red Cell Distribution Width 17.8 % (13.2-15.2)
[2019-05-04 07:23] LABS: Hematocrit 42.3 % (35.5-45.6)
[2019-05-04 07:30] LABS: Calcium 8.3 mg/dL (8.4-10.2)
--- NOTE | 2019-05-04 08:36 | XRay Report ---
CHEST 1 VIEW INDICATION: follow up respiratory failure. COMPARISON: 05/03/2019 FINDINGS: Endotracheal tube and nasogastric tube are in place. There is decreased cardiomegaly and pulmonary ve nous congestion since yesterday's exam. Decreased bibasilar atelectasis. No pneumothorax. IMPRESSION: Mild improvement in volume overload or CHF. Signer Name: Doni Jeffrey Jr, MD Signed: 05/04/2019 8:31 AM Workstation Name: [id number]
[2019-05-04] MEDS: cefTRIAXone/NS 2 GM/100 ML 2 GM/100 ML BAG IV SCH (09:12)
[2019-05-04] MEDS: ENOXAPARIN 40 MG/0.4 ML INJ SUB-Q SCH (09:14)
[2019-05-04] MEDS: METOPROLOL TARTRATE 25 MG TAB PO SCH ×2 (09:14→21:30)
[2019-05-04] MEDS: FAMOTIDINE 20 MG/2 ML INJ IV SCH (09:14)
--- NOTE | 2019-05-04 10:51 | Progress Note ---
Assessment and Plan Cont present supportive management. The patient has been seen in conjunction with Dr. Kolb who agrees with the assessment and plan of care. - Patient Problems (1) Acute respiratory failure Current Visit: Yes Status: Acute (2) Acute heart failure with preserved ejection fraction Current Visit: Yes Status: Acute (3) Acute kidney injury Current Visit: Yes Status: Acute (4) Anemia Current Visit: Yes Status: Acute (5) Morbid obesity Current Visit: Yes Status: Chronic (6) UTI (urinary tract infection) Current Visit: Yes Status: Acute (7) Fever Current Visit: Yes Status: Acute (8) Sepsis Current Visit: Yes Status: Suspected (9) Elevated troponin Current Visit: Yes Status: Acute (10) NSVT (nonsustained ventricular tachycardia) Current Visit: Yes Status: Acute (11) LANDON (obstructive sleep apnea) Current Visit: Yes Status: Suspected Subjective Date of service: 05/04/19 Principal diagnosis: HF; resp failure Interval history: pt remains intubated, sedated. in SR on tele. no family at bedside. Objective Last Vital Signs Temp 98.6 F 05/04/19 08:00 Pulse 95 H 05/04/19 10:30 Resp 16 05/04/19 10:30 BP 119/48 05/04/19 10:30 Pulse Ox 92 05/04/19 10:30 - Physical Examination General: Other (intubated, sedated) HEENT: Positive: PERRL Neck: Positive: trachea midline Cardiac: Positive: Reg Rate and Rhythm, S1/S2 Lungs: Positive: Decreased Breath Sounds Neuro: Positive: Other (intubated, sedated) Abdomen: Positive: Unremarkable Skin: Positive: Clear Musculoskeletal: Decreased Range of Motion Extremities: Present: normal - Labs and Meds CBC 05/04/19 Range/Units 06:50 WBC 16.0 H (4.5-11.0) K/mm3 RBC 4.76 (3.65-5.03) M/mm3 Hgb 13.0 (11.8-15.2) gm/dl Hct 42.3 (35.5-45.6) % Plt Count 265 (140-440) K/mm3 Comprehensive Metabolic Panel 05/04/19 Range/Units 06:50 Sodium 148 H (137-145) mmol/L Potassium 5.5 H (3.6-5.0) mmol/L Chloride 99.1 (98-107) mmol/L Carbon Dioxide 28 (22-30) mmol/L BUN 53 H (9-20) mg/dL Creatinine 3.3 H D (0.8-1.5) mg/dL Glucose 106 H (75-100) mg/dL Calcium 8.3 L (8.4-10.2) mg/dL - Imaging and Cardiology EKG: image reviewed Echo: report reviewed (TDS, EF 55-60%, mild LVH, mild TR, RVSP 40mmHg. ) - Telemetry EKG Rhythm: Sinus Rhythm
[2019-05-04] MEDS ORDERED: SODIUM POLYSTYRENE 15 GM/60 ML ORAL LIQD PO ONE (11:00)
[2019-05-04] MEDS: SODIUM CHLORIDE 0.9% 1000 ML 1,000 ML IV SCH ×2 (11:54→21:30)
[2019-05-04] MEDS ORDERED: SODIUM CHLORIDE 0.9% 500 ML 500 ML IV ONE ×2 (12:00)
--- NOTE | 2019-05-04 12:15 | Progress Note ---
Assessment and Plan 34 y/o male with acute hypoxic, hypercapnic respiratory failure currently ventilated and sedated. 1. Wean FiO2 for sats >88% and PaO2 55 or greater. Permissive hypercapnea is ok as long as pH remains greater than 7.2 2. Continue current settings, goals would be to wean FiO2 down to 60% if possible 3. Holding diuretics for now given increase in renal function. 4. Likely will need trach but will aggressively try to wean. CCT 31 minutes. Subjective Date of service: 05/04/19 Principal diagnosis: HF; resp failure Interval history: No acute events. pH lower but PaO2 is improved on current settings. Still on 100% but will wean to at least 90. Cr worse today. BP stable not on pressors. Had some hypotension on yesterday but this has resolved. I held lasix but bumex was given yesterday by renal. Objective Vital Signs - 12hr 05/04/19 05/04/19 05/04/19 00:21 00:30 00:41 Temperature Pulse Rate 105 H 106 H 106 H Pulse Rate [ From Monitor] Respiratory 16 16 16 Rate Blood Pressure 119/48 123/46 123/46 O2 Sat by Pulse 94 94 93 Oximetry 05/04/19 05/04/19 05/04/19 00:51 01:00 01:11 Temperature Pulse Rate 107 H 106 H 106 H Pulse Rate [ From Monitor] Respiratory 16 16 16 Rate Blood Pressure 122/48 117/47 123/46 O2 Sat by Pulse 94 93 95 Oximetry 05/04/19 05/04/19 05/04/19 01:21 01:30 01:41 Temperature Pulse Rate 106 H 106 H 106 H Pulse Rate [ From Monitor] Respiratory 16 16 16 Rate Blood Pressure 129/44 115/44 129/44 O2 Sat by Pulse 95 95 96 Oximetry 05/04/19 05/04/19 05/04/19 01:51 02:00 02:11 Temperature Pulse Rate 107 H 107 H 107 H Pulse Rate [ From Monitor] Respiratory 16 16 16 Rate Blood Pressure 101/46 121/40 121/40 O2 Sat by Pulse 95 94 92 Oximetry 05/04/19 05/04/19 05/04/19 02:21 02:30 02:41 Temperature Pulse Rate 106 H 105 H 104 H Pulse Rate [ From Monitor] Respiratory 16 16 16 Rate Blood Pressure 94/43 112/40 112/40 O2 Sat by Pulse 90 90 89 Oximetry 05/04/19 05/04/19 05/04/19 02:51 03:00 03:11 Temperature Pulse Rate 101 H 98 H 93 H Pulse Rate [ From Monitor] Respiratory 16 16 16 Rate Blood Pressure 95/38 88/35 112/40 O2 Sat by Pulse 87 83 L 82 L Oximetry 05/04/19 05/04/19 05/04/19 03:21 03:30 03:41 Temperature Pulse Rate 105 H 108 H 115 H Pulse Rate [ From Monitor] Respiratory 16 16 16 Rate Blood Pressure 108/48 127/51 108/48 O2 Sat by Pulse 86 90 86 Oximetry 05/04/19 05/04/19 05/04/19 03:51 04:00 04:08 Temperature 98.7 F Pulse Rate 113 H 115 H Pulse Rate [ 115 H From Monitor] Respiratory 16 16 Rate Blood Pressure 135/60 141/66 O2 Sat by Pulse 91 88 Oximetry 05/04/19 05/04/19 05/04/19 04:11 04:21 04:30 Temperature Pulse Rate 115 H 115 H 115 H Pulse Rate [ From Monitor] Respiratory 16 16 16 Rate Blood Pressure 127/51 128/61 148/60 O2 Sat by Pulse 88 89 88 Oximetry 05/04/19 05/04/19 05/04/19 04:33 04:41 04:51 Temperature Pulse Rate 120 H 120 H 115 H Pulse Rate [ From Monitor] Respiratory 15 16 Rate Blood Pressure 148/60 148/60 146/65 O2 Sat by Pulse 91 86 92 Oximetry 05/04/19 05/04/19 05/04/19 05:00 05:11 05:21 Temperature Pulse Rate 113 H 107 H 119 H Pulse Rate [ From Monitor] Respiratory 16 16 18 Rate Blood Pressure 137/60 137/60 131/56 O2 Sat by Pulse 88 97 84 Oximetry 05/04/19 05/04/19 05/04/19 05:30 05:41 05:51 Temperature Pulse Rate 112 H 111 H 105 H Pulse Rate [ From Monitor] Respiratory 16 16 16 Rate Blood Pressure 147/60 147/60 136/56 O2 Sat by Pulse 90 96 99 Oximetry 05/04/19 05/04/19 05/04/19 06:00 06:11 06:21 Temperature Pulse Rate 103 H 102 H 102 H Pulse Rate [ From Monitor] Respiratory 16 16 15 Rate Blood Pressure 134/54 134/54 137/57 O2 Sat by Pulse 99 97 95 Oximetry 05/04/19 05/04/19 05/04/19 06:30 06:41 06:51 Temperature Pulse Rate 102 H 104 H 107 H Pulse Rate [ From Monitor] Respiratory 16 15 17 Rate Blood Pressure 132/57 132/57 137/64 O2 Sat by Pulse 94 92 88 Oximetry 05/04/19 05/04/19 05/04/19 07:00 07:11 07:21 Temperature Pulse Rate 111 H 109 H 107 H Pulse Rate [ From Monitor] Respiratory 16 16 15 Rate Blood Pressure 151/80 151/80 141/67 O2 Sat by Pulse 97 95 97 Oximetry 05/04/19 05/04/19 05/04/19 07:30 07:41 07:51 Temperature Pulse Rate 104 H 103 H 105 H Pulse Rate [ From Monitor] Respiratory 16 16 16 Rate Blood Pressure 141/65 141/65 131/64 O2 Sat by Pulse 96 99 91 Oximetry 05/04/19 05/04/19 05/04/19 08:00 08:11 08:21 Temperature 98.6 F Pulse Rate 102 H 103 H 109 H Pulse Rate [ 102 H From Monitor] Respiratory 16 16 17 Rate Blood Pressure 123/48 123/48 135/63 O2 Sat by Pulse 100 95 87 Oximetry 05/04/19 05/04/19 05/04/19 08:30 08:41 08:51 Temperature Pulse Rate 104 H 104 H 99 H Pulse Rate [ From Monitor] Respiratory 10 L 14 16 Rate Blood Pressure 132/55 132/55 127/53 O2 Sat by Pulse 98 91 97 Oximetry 05/04/19 05/04/19 05/04/19 09:00 09:11 09:14 Temperature Pulse Rate 104 H 101 H 102 H Pulse Rate [ From Monitor] Respiratory 14 15 Rate Blood Pressure 129/54 129/54 129/54 O2 Sat by Pulse 92 91 Oximetry 05/04/19 05/04/19 05/04/19 09:21 09:30 09:41 Temperature Pulse Rate 100 H 99 H 101 H Pulse Rate [ From Monitor] Respiratory 16 16 16 Rate Blood Pressure 130/53 135/58 135/58 O2 Sat by Pulse 99 100 93 Oximetry 05/04/19 05/04/19 05/04/19 09:51 10:00 10:11 Temperature Pulse Rate 96 H 100 H 97 H Pulse Rate [ From Monitor] Respiratory 17 16 16 Rate Blood Pressure 131/56 116/50 116/50 O2 Sat by Pulse 90 91 93 Oximetry 05/04/19 05/04/19 05/04/19 10:21 10:30 11:23 Temperature Pulse Rate 97 H 95 H 95 H Pulse Rate [ From Monitor] Respiratory 14 16 Rate Blood Pressure 115/53 119/48 112/44 O2 Sat by Pulse 91 92 100 Oximetry Constitutional: other (morbidly obese male, sedated on vent) Eyes: non-icteric Neck: other (extremely large in circumference) Effort: normal Ascultation: Bilateral: diminished breath sounds (secondary to body habitus) CBC and BMP: 05/04/19 06:50 05/04/19 06:50 ABG, PT/INR, D-dimer: ABG POC ABG pH 7.273 (7.35-7.45) L 05/04/19 04:49 ABG pH 7.403 pH Units (7.350-7.450) 05/02/19 16:05 ABG pCO2 52.3 mm Hg 05/02/19 16:05 POC ABG pO2 81 (80-105) 05/04/19 04:49 ABG pO2 66.6 mm Hg (80.0-90.0) L 05/02/19 16:05 POC ABG HCO3 35.4 (22-26 mml/L) 05/04/19 04:49 POC ABG Total CO2 38 (23-27mmol/L) 05/04/19 04:49 POC ABG O2 Sat 93 05/04/19 04:49 ABG O2 Saturation 92.5 % (95.0-99.0) L 05/02/19 16:05 PT/INR, D-dimer PT 15.4 Sec. (12.2-14.9) H 05/01/19 Unknown INR 1.23 (0.87-1.13) H 05/01/19 Unknown Abnormal lab findings: Abnormal Labs 05/01/19 05/01/19 05/01/19 17:50 19:26 22:36 WBC MCH MCHC RDW Lymph % (Auto) [place] % (Auto) [place] # Seg Neutrophils % Seg Neutrophils # PT INR APTT POC ABG pH 7.272 L 7.331 L POC ABG pCO2 52.8 H POC ABG pO2 ABG pO2 ABG HCO3 ABG O2 Saturation ABG Base Excess ABG Hemoglobin Oxyhemoglobin Sodium 136 L Potassium 6.5 H* Chloride 97.2 L BUN 60 H Creatinine Glucose 113 H Calcium Phosphorus Magnesium 2.40 H AST 139 H ALT 154 H Total Creatine Kinase CK-MB (CK-2) Troponin T NT-Pro-B Natriuret Pep Albumin 3.8 L Triglycerides HDL Cholesterol Urine WBC (Auto) 05/01/19 05/01/19 05/01/19 Unknown Unknown Unknown WBC 16.1 H MCH MCHC RDW 17.2 H Lymph % (Auto) [place] % (Auto) 9.6 H [place] # 1.5 H Seg Neutrophils % 73.0 H Seg Neutrophils # 11.7 H PT 15.4 H INR 1.23 H APTT 22.7 L POC ABG pH POC ABG pCO2 POC ABG pO2 ABG pO2 ABG HCO3 ABG O2 Saturation ABG Base Excess ABG Hemoglobin Oxyhemoglobin Sodium Potassium Chloride BUN Creatinine Glucose Calcium Phosphorus Magnesium AST ALT Total Creatine Kinase CK-MB (CK-2) Troponin T NT-Pro-B Natriuret Pep 6831 H Albumin Triglycerides HDL Cholesterol Urine WBC (Auto) 05/01/19 05/02/19 05/02/19 Unknown 00:06 00:06 WBC MCH MCHC RDW Lymph % (Auto) [place] % (Auto) [place] # Seg Neutrophils % Seg Neutrophils # PT INR APTT POC ABG pH POC ABG pCO2 POC ABG pO2 ABG pO2 ABG HCO3 ABG O2 Saturation ABG Base Excess ABG Hemoglobin Oxyhemoglobin Sodium Potassium Chloride BUN Creatinine Glucose Calcium Phosphorus 4.90 H Magnesium AST ALT Total Creatine Kinase 226 H CK-MB (CK-2) 5.7 H Troponin T 0.044 H NT-Pro-B Natriuret Pep Albumin Triglycerides 182 H HDL Cholesterol 18 L Urine WBC (Auto) 05/02/19 05/02/19 05/02/19 02:08 04:40 04:41 WBC 17.6 H MCH 27 L MCHC RDW 17.4 H Lymph % (Auto) 10.2 L [place] % (Auto) 11.0 H [place] # 1.9 H Seg Neutrophils % 78.0 H Seg Neutrophils # 13.8 H PT INR APTT POC ABG pH POC ABG pCO2 46.8 H POC ABG pO2 63 L ABG pO2 ABG HCO3 ABG O2 Saturation ABG Base Excess ABG Hemoglobin Oxyhemoglobin Sodium Potassium Chloride 96.3 L BUN 63 H Creatinine 1.7 H Glucose Calcium Phosphorus Magnesium AST ALT Total Creatine Kinase CK-MB (CK-2) Troponin T NT-Pro-B Natriuret Pep Albumin Triglycerides HDL Cholesterol Urine WBC (Auto) 05/02/19 05/02/19 05/02/19 04:41 04:41 16:05 WBC MCH MCHC RDW Lymph % (Auto) [place] % (Auto) [place] # Seg Neutrophils % Seg Neutrophils # PT INR APTT POC ABG pH POC ABG pCO2 POC ABG pO2 ABG pO2 66.6 L ABG HCO3 31.9 H ABG O2 Saturation 92.5 L ABG Base Excess 5.8 H ABG Hemoglobin 13.3 L Oxyhemoglobin 90.6 L Sodium Potassium Chloride 97.2 L BUN 61 H Creatinine 1.8 H Glucose Calcium Phosphorus Magnesium AST ALT Total Creatine Kinase CK-MB (CK-2) 5.2 H Troponin T 0.067 H D NT-Pro-B Natriuret Pep Albumin Triglycerides HDL Cholesterol Urine WBC (Auto) 05/02/19 05/03/19 05/03/19 20:39 04:35 05:05 WBC 11.8 H MCH 27 L MCHC 31 L RDW 17.2 H Lymph % (Auto) [place] % (Auto) [place] # Seg Neutrophils % Seg Neutrophils # PT INR APTT POC ABG pH POC ABG pCO2 53.6 H 54.0 H POC ABG pO2 55 L 63 L ABG pO2 ABG HCO3 ABG O2 Saturation ABG Base Excess ABG Hemoglobin Oxyhemoglobin Sodium Potassium Chloride BUN Creatinine Glucose Calcium Phosphorus Magnesium AST ALT Total Creatine Kinase CK-MB (CK-2) Troponin T NT-Pro-B Natriuret Pep Albumin Triglycerides HDL Cholesterol Urine WBC (Auto) 05/03/19 05/03/19 05/03/19 05:05 10:55 16:48 WBC MCH MCHC RDW Lymph % (Auto) [place] % (Auto) [place] # Seg Neutrophils % Seg Neutrophils # PT INR APTT POC ABG pH 7.604 H POC ABG pCO2 POC ABG pO2 58 L ABG pO2 ABG HCO3 ABG O2 Saturation ABG Base Excess ABG Hemoglobin Oxyhemoglobin Sodium Potassium Chloride BUN 52 H Creatinine 1.9 H Glucose 103 H Calcium Phosphorus Magnesium AST ALT Total Creatine Kinase CK-MB (CK-2) Troponin T NT-Pro-B Natriuret Pep Albumin Triglycerides HDL Cholesterol Urine WBC (Auto) 33.0 H 05/04/19 05/04/19 05/04/19 04:49 06:50 06:50 WBC 16.0 H MCH 27 L MCHC 31 L RDW 17.8 H Lymph % (Auto) [place] % (Auto) [place] # Seg Neutrophils % Seg Neutrophils # PT INR APTT POC ABG pH 7.273 L POC ABG pCO2 POC ABG pO2 ABG pO2 ABG HCO3 ABG O2 Saturation ABG Base Excess ABG Hemoglobin Oxyhemoglobin Sodium 148 H Potassium 5.5 H Chloride BUN 53 H Creatinine 3.3 H D Glucose 106 H Calcium 8.3 L Phosphorus Magnesium AST ALT Total Creatine Kinase CK-MB (CK-2) Troponin T NT-Pro-B Natriuret Pep Albumin Triglycerides HDL Cholesterol Urine WBC (Auto)
--- NOTE | 2019-05-04 14:00 | Progress Note ---
Assessment and Plan Cultures: Blood cultures: no growth thus far A/P: 34-year-old male with obesity admitted with: #Fever, SIRS: unclear if infectious. Patient was afebrile for the first 2 days of hospitalization, then he developed a fever of 101.2F. ?aspiration related. Apparently was using CPAP. #Acute hypoxic hypercapneic respiratory failure, possibly obesity hypoventilation syndrome: on the vent. Pulmonary managing. #Morbid obesity #CARLA: creatinine worsening. dose abx accordingly. #Elevated LFTs: RUQ US showed fatty liver, small GB sludge. Recheck CMP. Recs: sputum culture ordered but not collected yet continue Ceftriaxone, Flagyl for now (Day 2 of 5) procalcitonin was elevated at 0.54, will recheck in a couple of days (can also be high from renal dysfunction) Recheck CMP in AM Burke Wilks MD, FACP [facility] ([facility]) C: [phone] O: [phone] F: [phone] Subjective Date of service: 05/04/19 Principal diagnosis: HF; resp failure Interval history: Fevers yesterday. None today. Remains intubated, high oxygen requirements. Objective - Exam Narrative Exam: Physical Exam: Constitutional: sedated, intubated. Morbid obesity Head, Ears, Nose: Normocephalic, atraumatic. External ears, nose normal Eyes: Conjunctivae/corneas clear. No icterus. No ptosis. Neck: intubated. Oral: intubated Cardiovascular: S1, S2 normal. Respiratory: Good air entry, clear to auscultation bilaterally GI: Soft, non-tender; bowel sounds normal. No peritoneal signs Musculoskeletal: No pedal edema, no cyanosis. Skin: No rash or abscess Hem/Lymphatic: No palpable cervical or supraclavicular nodes. No lymphangitis Psych: no agitation Neurological: sedated, intubated, on vent - Constitutional Vitals: Vital Signs Temp Pulse Resp BP Pulse Ox 99.7 F H 114 H 16 144/72 96 05/04/19 12:00 05/04/19 13:00 05/04/19 13:00 05/04/19 13:00 05/04/19 13:00 Temperature -Last 24 Hours Temperature 99.7 F Temperature 98.6 F Temperature 98.7 F Temperature 98.7 F Temperature 98.4 F Temperature 101.7 F Temperature 101.3 F - Labs CBC & Chem 7: 05/04/19 06:50 05/04/19 06:50 Labs: Abnormal lab results 05/03/19 05/04/19 05/04/19 Range/Units 16:48 04:49 06:50 WBC 16.0 H (4.5-11.0) K/mm3 MCH 27 L (28-32) pg MCHC 31 L (32-34) % RDW 17.8 H (13.2-15.2) % POC ABG pH 7.604 H 7.273 L (7.35-7.45) POC ABG pO2 58 L (80-105) Sodium (137-145) mmol/L Potassium (3.6-5.0) mmol/L BUN (9-20) mg/dL Creatinine (0.8-1.5) mg/dL Glucose (75-100) mg/dL Calcium (8.4-10.2) mg/dL 05/04/19 Range/Units 06:50 WBC (4.5-11.0) K/mm3 MCH (28-32) pg MCHC (32-34) % RDW (13.2-15.2) % POC ABG pH (7.35-7.45) POC ABG pO2 (80-105) Sodium 148 H (137-145) mmol/L Potassium 5.5 H (3.6-5.0) mmol/L BUN 53 H (9-20) mg/dL Creatinine 3.3 H D (0.8-1.5) mg/dL Glucose 106 H (75-100) mg/dL Calcium 8.3 L (8.4-10.2) mg/dL
--- NOTE | 2019-05-04 15:35 | Progress Note ---
Assessment and Plan - Patient Problems (1) Acute kidney injury Current Visit: Yes Status: Acute (2) Hypercapnic respiratory failure Current Visit: Yes Status: Acute Qualifiers: Chronicity: acute on chronic Qualified Code(s): J96.22 - Acute and chronic respiratory failure with hypercapnia (3) Anemia Current Visit: Yes Status: Acute (4) Fever Current Visit: Yes Status: Acute Subjective Principal diagnosis: HF; resp failure Objective - Vital Signs Vital signs: Vital Signs - 12hr 05/04/19 05/04/19 05/04/19 03:41 03:51 04:00 Temperature Pulse Rate 115 H 113 H 115 H Pulse Rate [ 115 H From Monitor] Respiratory 16 16 16 Rate Blood Pressure 108/48 135/60 141/66 O2 Sat by Pulse 86 91 88 Oximetry 05/04/19 05/04/19 05/04/19 04:08 04:11 04:21 Temperature 98.7 F Pulse Rate 115 H 115 H Pulse Rate [ From Monitor] Respiratory 16 16 Rate Blood Pressure 127/51 128/61 O2 Sat by Pulse 88 89 Oximetry 05/04/19 05/04/19 05/04/19 04:30 04:33 04:41 Temperature Pulse Rate 115 H 120 H 120 H Pulse Rate [ From Monitor] Respiratory 16 15 Rate Blood Pressure 148/60 148/60 148/60 O2 Sat by Pulse 88 91 86 Oximetry 05/04/19 05/04/19 05/04/19 04:51 05:00 05:11 Temperature Pulse Rate 115 H 113 H 107 H Pulse Rate [ From Monitor] Respiratory 16 16 16 Rate Blood Pressure 146/65 137/60 137/60 O2 Sat by Pulse 92 88 97 Oximetry 05/04/19 05/04/19 05/04/19 05:21 05:30 05:41 Temperature Pulse Rate 119 H 112 H 111 H Pulse Rate [ From Monitor] Respiratory 18 16 16 Rate Blood Pressure 131/56 147/60 147/60 O2 Sat by Pulse 84 90 96 Oximetry 05/04/19 05/04/19 05/04/19 05:51 06:00 06:11 Temperature Pulse Rate 105 H 103 H 102 H Pulse Rate [ From Monitor] Respiratory 16 16 16 Rate Blood Pressure 136/56 134/54 134/54 O2 Sat by Pulse 99 99 97 Oximetry 05/04/19 05/04/19 05/04/19 06:21 06:30 06:41 Temperature Pulse Rate 102 H 102 H 104 H Pulse Rate [ From Monitor] Respiratory 15 16 15 Rate Blood Pressure 137/57 132/57 132/57 O2 Sat by Pulse 95 94 92 Oximetry 05/04/19 05/04/19 05/04/19 06:51 07:00 07:11 Temperature Pulse Rate 107 H 111 H 109 H Pulse Rate [ From Monitor] Respiratory 17 16 16 Rate Blood Pressure 137/64 151/80 151/80 O2 Sat by Pulse 88 97 95 Oximetry 05/04/19 05/04/19 05/04/19 07:21 07:30 07:41 Temperature Pulse Rate 107 H 104 H 103 H Pulse Rate [ From Monitor] Respiratory 15 16 16 Rate Blood Pressure 141/67 141/65 141/65 O2 Sat by Pulse 97 96 99 Oximetry 05/04/19 05/04/19 05/04/19 07:51 08:00 08:11 Temperature 98.6 F Pulse Rate 105 H 102 H 103 H Pulse Rate [ 102 H From Monitor] Respiratory 16 16 16 Rate Blood Pressure 131/64 123/48 123/48 O2 Sat by Pulse 91 100 95 Oximetry 05/04/19 05/04/19 05/04/19 08:21 08:30 08:41 Temperature Pulse Rate 109 H 104 H 104 H Pulse Rate [ From Monitor] Respiratory 17 10 L 14 Rate Blood Pressure 135/63 132/55 132/55 O2 Sat by Pulse 87 98 91 Oximetry 05/04/19 05/04/19 05/04/19 08:51 09:00 09:11 Temperature Pulse Rate 99 H 104 H 101 H Pulse Rate [ From Monitor] Respiratory 16 14 15 Rate Blood Pressure 127/53 129/54 129/54 O2 Sat by Pulse 97 92 91 Oximetry 05/04/19 05/04/19 05/04/19 09:14 09:21 09:30 Temperature Pulse Rate 102 H 100 H 99 H Pulse Rate [ From Monitor] Respiratory 16 16 Rate Blood Pressure 129/54 130/53 135/58 O2 Sat by Pulse 99 100 Oximetry 05/04/19 05/04/19 05/04/19 09:41 09:51 10:00 Temperature Pulse Rate 101 H 96 H 100 H Pulse Rate [ From Monitor] Respiratory 16 17 16 Rate Blood Pressure 135/58 131/56 116/50 O2 Sat by Pulse 93 90 91 Oximetry 05/04/19 05/04/19 05/04/19 10:11 10:21 10:30 Temperature Pulse Rate 97 H 97 H 95 H Pulse Rate [ From Monitor] Respiratory 16 14 16 Rate Blood Pressure 116/50 115/53 119/48 O2 Sat by Pulse 93 91 92 Oximetry 05/04/19 05/04/19 05/04/19 10:41 10:51 11:00 Temperature Pulse Rate 96 H 96 H 95 H Pulse Rate [ From Monitor] Respiratory 14 16 16 Rate Blood Pressure 119/48 117/49 115/45 O2 Sat by Pulse 100 98 98 Oximetry 05/04/19 05/04/19 05/04/19 11:11 11:21 11:23 Temperature Pulse Rate 97 H 96 H 95 H Pulse Rate [ From Monitor] Respiratory 17 16 Rate Blood Pressure 115/45 112/44 112/44 O2 Sat by Pulse 95 95 100 Oximetry 05/04/19 05/04/19 05/04/19 11:30 11:41 11:51 Temperature Pulse Rate 96 H 98 H 100 H Pulse Rate [ From Monitor] Respiratory 16 18 16 Rate Blood Pressure 114/47 114/47 114/47 O2 Sat by Pulse 98 95 92 Oximetry 05/04/19 05/04/19 05/04/19 12:00 12:11 12:21 Temperature 99.7 F H Pulse Rate 96 H 99 H 104 H Pulse Rate [ 96 H From Monitor] Respiratory 16 15 16 Rate Blood Pressure 114/46 114/46 114/46 O2 Sat by Pulse 97 94 100 Oximetry 05/04/19 05/04/19 05/04/19 12:30 12:41 12:51 Temperature Pulse Rate 98 H 120 H 113 H Pulse Rate [ From Monitor] Respiratory 16 14 16 Rate Blood Pressure 122/49 122/49 139/68 O2 Sat by Pulse 100 75 L 84 Oximetry 05/04/19 05/04/19 05/04/19 13:00 13:11 13:21 Temperature Pulse Rate 114 H 114 H 112 H Pulse Rate [ From Monitor] Respiratory 16 18 17 Rate Blood Pressure 144/72 144/72 140/69 O2 Sat by Pulse 96 86 100 Oximetry 05/04/19 05/04/19 05/04/19 13:30 13:41 13:51 Temperature Pulse Rate 107 H 100 H 101 H Pulse Rate [ From Monitor] Respiratory 17 16 16 Rate Blood Pressure 122/64 122/64 122/52 O2 Sat by Pulse 91 95 90 Oximetry 05/04/19 05/04/19 05/04/19 14:00 14:11 14:21 Temperature Pulse Rate 98 H 102 H 100 H Pulse Rate [ From Monitor] Respiratory 16 18 15 Rate Blood Pressure 120/47 120/47 128/58 O2 Sat by Pulse 96 87 90 Oximetry 05/04/19 05/04/19 05/04/19 14:30 14:41 14:51 Temperature Pulse Rate 99 H 96 H 97 H Pulse Rate [ From Monitor] Respiratory 25 H 16 16 Rate Blood Pressure 116/48 116/48 125/58 O2 Sat by Pulse 85 93 95 Oximetry 05/04/19 05/04/19 05/04/19 15:00 15:11 15:21 Temperature Pulse Rate 105 H 107 H 110 H Pulse Rate [ From Monitor] Respiratory 16 15 18 Rate Blood Pressure 133/73 133/73 130/80 O2 Sat by Pulse 85 96 94 Oximetry - Lab 05/04/19 06:50 05/04/19 06:50 Most recent lab results ABG pH 7.403 pH Units (7.350-7.450) 05/02/19 16:05 ABG pCO2 52.3 mm Hg 05/02/19 16:05 ABG pO2 66.6 mm Hg (80.0-90.0) L 05/02/19 16:05 ABG HCO3 31.9 mmol/L (20.0-26.0) H 05/02/19 16:05 ABG O2 Saturation 92.5 % (95.0-99.0) L 05/02/19 16:05 Calcium 8.3 mg/dL (8.4-10.2) L 05/04/19 06:50 Phosphorus 4.90 mg/dL (2.5-4.5) H 05/02/19 00:06 Magnesium 2.30 mg/dL (1.7-2.3) 05/02/19 00:06 Medications & Allergies - Medications Allergies/Adverse Reactions: Allergies No Known Allergies Allergy (Verified 05/01/19 20:27) Home Medications: Home Medications Medication Instructions Recorded Confirmed Last Taken Type No Known Home Medications [No 05/03/19 05/03/19 Unknown History Reported Home Medications] Active Medications: Generic Name Dose Route Start Last Admin Trade Name Freq PRN Reason Stop Dose Admin Acetaminophen 650 mg 05/01/19 22:46 05/03/19 21:36 Tylenol PO 650 mg Q4H PRN Administration Pain MILD(1-3)/Fever >100.5/FREEMAN Dextrose 50 gm 05/01/19 20:24 D50w (25gm) Vial IV Q30MIN PRN Hypoglycemia Protocol Enoxaparin Sodium 30 mg 05/05/19 10:00 Enoxaparin SUB-Q QDAY VICKEY Famotidine 20 mg 05/05/19 10:00 Pepcid IV DAILY VICKEY Hydrophilic Ointment 1 applic 05/01/19 21:14 Vaseline Lip Therapy TP Q2HR PRN Dry Lips Fentanyl Citrate 2,000 mcg in 100 mls @ 10.195 mls/hr 05/01/19 22:00 05/04/19 14:24 Fentanyl Drip Premix IV 2 mcg/kg/hr TITR VICKEY 20.39 mls/hr Titration Protocol 1 MCG/KG/HR Propofol 1,000 mg in 100 mls @ 7.011 mls/hr 05/03/19 04:00 05/04/19 12:36 Diprivan 10 Mg/Ml IV 0 mcg/kg/min TITR VICKEY 0 mls/hr Titration Protocol 5 MCG/KG/MIN Ceftriaxone Sodium 2 gm in 100 mls @ 200 mls/hr 05/03/19 12:30 05/04/19 09:12 Rocephin/Ns 2 Gm/100 Ml IV 200 mls/hr Q24HR VICKEY Administration Protocol Metronidazole 500 mg in 100 mls @ 100 mls/hr 05/03/19 14:00 05/04/19 13:12 Flagyl 500 Mg/100 Ml IV 100 mls/hr Q8HR VICKEY Administration Protocol Norepinephrine 4 mg in 250 mls @ 7.5 mls/hr 05/03/19 18:00 Levophed Drip 4 Mg/Ns 250 Ml IV TITR VICKEY Protocol 2 MCG/MIN Sodium Chloride 1,000 mls @ 125 mls/hr 05/04/19 11:45 05/04/19 11:54 Nacl 0.9% 1000 Ml IV 125 mls/hr DIRECT VICKEY Administration Metoprolol Tartrate 25 mg 05/02/19 04:00 05/04/19 09:14 Metoprolol PO 25 mg BID VICKEY Administration Multi-Ingred Cream/Lotion/Oil/Oint 1 applic 05/01/19 21:14 Artificial Tears Ophth Oint OU Q4HR PRN Dry Eye(s) Ondansetron HCl 4 mg 05/01/19 22:46 Zofran IV Q8H PRN Nausea And Vomiting Sodium Chloride 10 ml 05/02/19 10:00 05/04/19 09:15 Sodium Chloride Flush Syringe 10 Ml IV 10 ml BID VICKEY Administration Sodium Chloride 10 ml 05/01/19 22:46 Sodium Chloride Flush Syringe 10 Ml IV PRN PRN LINE FLUSH
--- NOTE | 2019-05-04 15:41 | Progress Note ---
Assessment and Plan - Patient Problems (1) Acute kidney injury Current Visit: Yes Status: Acute Plan to address problem: Acute kidney injury worsening Baseline creatinine unknown Kidney function is worsening Chest x-ray with concern for Bibasilar haziness? Atelectasis Renal function worsened with diuresis ? Volume depletion Give bolus of saline Continue saline infusion at 125cc/hr Repeat BMP (2) Hypercapnic respiratory failure Current Visit: Yes Status: Acute Qualifiers: Chronicity: acute on chronic Qualified Code(s): J96.22 - Acute and chronic respiratory failure with hypercapnia Plan to address problem: Acute on chronic respiratory failure with hypercapnia Patient is currently intubated FiO2 100% chest x-ray with some concern for bibasilar haziness Given morbid obesity. Obesity hypoventilation Wean oxygen as tolerated (3) Anemia Current Visit: Yes Status: Acute Plan to address problem: Mild anemia Monitor CBC (4) Fever Current Visit: Yes Status: Acute Plan to address problem: Fever workup for infectious causes Infectious disease is following Subjective Principal diagnosis: HF; resp failure Interval history: 34-year-old gentleman with morbid obesity, found with cyanosis difficulty with breathing and brought to the emergency room he required intubation review of systems unobtainable patient remains intubated and FiO2 100% he has had worsening renal function nephrology consulted for this. He was subsequently found to have a fever infectious diseases is following Patient seen to be remains intubated and sedated FiO2 90% declining renal function and decreasing urine output Berkowitz catheter in place Objective - Vital Signs Vital signs: Vital Signs - 12hr 05/04/19 05/04/19 05/04/19 03:41 03:51 04:00 Temperature Pulse Rate 115 H 113 H 115 H Pulse Rate [ 115 H From Monitor] Respiratory 16 16 16 Rate Blood Pressure 108/48 135/60 141/66 O2 Sat by Pulse 86 91 88 Oximetry 05/04/19 05/04/19 05/04/19 04:08 04:11 04:21 Temperature 98.7 F Pulse Rate 115 H 115 H Pulse Rate [ From Monitor] Respiratory 16 16 Rate Blood Pressure 127/51 128/61 O2 Sat by Pulse 88 89 Oximetry 05/04/19 05/04/19 05/04/19 04:30 04:33 04:41 Temperature Pulse Rate 115 H 120 H 120 H Pulse Rate [ From Monitor] Respiratory 16 15 Rate Blood Pressure 148/60 148/60 148/60 O2 Sat by Pulse 88 91 86 Oximetry 05/04/19 05/04/19 05/04/19 04:51 05:00 05:11 Temperature Pulse Rate 115 H 113 H 107 H Pulse Rate [ From Monitor] Respiratory 16 16 16 Rate Blood Pressure 146/65 137/60 137/60 O2 Sat by Pulse 92 88 97 Oximetry 05/04/19 05/04/19 05/04/19 05:21 05:30 05:41 Temperature Pulse Rate 119 H 112 H 111 H Pulse Rate [ From Monitor] Respiratory 18 16 16 Rate Blood Pressure 131/56 147/60 147/60 O2 Sat by Pulse 84 90 96 Oximetry 05/04/19 05/04/19 05/04/19 05:51 06:00 06:11 Temperature Pulse Rate 105 H 103 H 102 H Pulse Rate [ From Monitor] Respiratory 16 16 16 Rate Blood Pressure 136/56 134/54 134/54 O2 Sat by Pulse 99 99 97 Oximetry 05/04/19 05/04/19 05/04/19 06:21 06:30 06:41 Temperature Pulse Rate 102 H 102 H 104 H Pulse Rate [ From Monitor] Respiratory 15 16 15 Rate Blood Pressure 137/57 132/57 132/57 O2 Sat by Pulse 95 94 92 Oximetry 05/04/19 05/04/19 05/04/19 06:51 07:00 07:11 Temperature Pulse Rate 107 H 111 H 109 H Pulse Rate [ From Monitor] Respiratory 17 16 16 Rate Blood Pressure 137/64 151/80 151/80 O2 Sat by Pulse 88 97 95 Oximetry 05/04/19 05/04/19 05/04/19 07:21 07:30 07:41 Temperature Pulse Rate 107 H 104 H 103 H Pulse Rate [ From Monitor] Respiratory 15 16 16 Rate Blood Pressure 141/67 141/65 141/65 O2 Sat by Pulse 97 96 99 Oximetry 05/04/19 05/04/19 05/04/19 07:51 08:00 08:11 Temperature 98.6 F Pulse Rate 105 H 102 H 103 H Pulse Rate [ 102 H From Monitor] Respiratory 16 16 16 Rate Blood Pressure 131/64 123/48 123/48 O2 Sat by Pulse 91 100 95 Oximetry 05/04/19 05/04/19 05/04/19 08:21 08:30 08:41 Temperature Pulse Rate 109 H 104 H 104 H Pulse Rate [ From Monitor] Respiratory 17 10 L 14 Rate Blood Pressure 135/63 132/55 132/55 O2 Sat by Pulse 87 98 91 Oximetry 05/04/19 05/04/19 05/04/19 08:51 09:00 09:11 Temperature Pulse Rate 99 H 104 H 101 H Pulse Rate [ From Monitor] Respiratory 16 14 15 Rate Blood Pressure 127/53 129/54 129/54 O2 Sat by Pulse 97 92 91 Oximetry 05/04/19 05/04/19 05/04/19 09:14 09:21 09:30 Temperature Pulse Rate 102 H 100 H 99 H Pulse Rate [ From Monitor] Respiratory 16 16 Rate Blood Pressure 129/54 130/53 135/58 O2 Sat by Pulse 99 100 Oximetry 05/04/19 05/04/19 05/04/19 09:41 09:51 10:00 Temperature Pulse Rate 101 H 96 H 100 H Pulse Rate [ From Monitor] Respiratory 16 17 16 Rate Blood Pressure 135/58 131/56 116/50 O2 Sat by Pulse 93 90 91 Oximetry 05/04/19 05/04/19 05/04/19 10:11 10:21 10:30 Temperature Pulse Rate 97 H 97 H 95 H Pulse Rate [ From Monitor] Respiratory 16 14 16 Rate Blood Pressure 116/50 115/53 119/48 O2 Sat by Pulse 93 91 92 Oximetry 05/04/19 05/04/19 05/04/19 10:41 10:51 11:00 Temperature Pulse Rate 96 H 96 H 95 H Pulse Rate [ From Monitor] Respiratory 14 16 16 Rate Blood Pressure 119/48 117/49 115/45 O2 Sat by Pulse 100 98 98 Oximetry 05/04/19 05/04/19 05/04/19 11:11 11:21 11:23 Temperature Pulse Rate 97 H 96 H 95 H Pulse Rate [ From Monitor] Respiratory 17 16 Rate Blood Pressure 115/45 112/44 112/44 O2 Sat by Pulse 95 95 100 Oximetry 05/04/19 05/04/19 05/04/19 11:30 11:41 11:51 Temperature Pulse Rate 96 H 98 H 100 H Pulse Rate [ From Monitor] Respiratory 16 18 16 Rate Blood Pressure 114/47 114/47 114/47 O2 Sat by Pulse 98 95 92 Oximetry 05/04/19 05/04/19 05/04/19 12:00 12:11 12:21 Temperature 99.7 F H Pulse Rate 96 H 99 H 104 H Pulse Rate [ 96 H From Monitor] Respiratory 16 15 16 Rate Blood Pressure 114/46 114/46 114/46 O2 Sat by Pulse 97 94 100 Oximetry 05/04/19 05/04/19 05/04/19 12:30 12:41 12:51 Temperature Pulse Rate 98 H 120 H 113 H Pulse Rate [ From Monitor] Respiratory 16 14 16 Rate Blood Pressure 122/49 122/49 139/68 O2 Sat by Pulse 100 75 L 84 Oximetry 05/04/19 05/04/19 05/04/19 13:00 13:11 13:21 Temperature Pulse Rate 114 H 114 H 112 H Pulse Rate [ From Monitor] Respiratory 16 18 17 Rate Blood Pressure 144/72 144/72 140/69 O2 Sat by Pulse 96 86 100 Oximetry 05/04/19 05/04/19 05/04/19 13:30 13:41 13:51 Temperature Pulse Rate 107 H 100 H 101 H Pulse Rate [ From Monitor] Respiratory 17 16 16 Rate Blood Pressure 122/64 122/64 122/52 O2 Sat by Pulse 91 95 90 Oximetry 05/04/19 05/04/19 05/04/19 14:00 14:11 14:21 Temperature Pulse Rate 98 H 102 H 100 H Pulse Rate [ From Monitor] Respiratory 16 18 15 Rate Blood Pressure 120/47 120/47 128/58 O2 Sat by Pulse 96 87 90 Oximetry 05/04/19 05/04/19 05/04/19 14:30 14:41 14:51 Temperature Pulse Rate 99 H 96 H 97 H Pulse Rate [ From Monitor] Respiratory 25 H 16 16 Rate Blood Pressure 116/48 116/48 125/58 O2 Sat by Pulse 85 93 95 Oximetry 05/04/19 05/04/19 05/04/19 15:00 15:11 15:21 Temperature Pulse Rate 105 H 107 H 110 H Pulse Rate [ From Monitor] Respiratory 16 15 18 Rate Blood Pressure 133/73 133/73 130/80 O2 Sat by Pulse 85 96 94 Oximetry - General Appearance General appearance: obese EENT: ATNC, PERRL, mucous membranes moist Neck: no JVD Respiratory: Present: Decreased Breath Sounds Cardiology: regular, S1S2 Gastrointestinal: normal, normoactive bowel sounds Integumentary: no rash Neurologic: other (patient sedated unable to assess) Psychiatric: other (unable to assess) - Lab 05/04/19 06:50 05/04/19 06:50 Most recent lab results ABG pH 7.403 pH Units (7.350-7.450) 05/02/19 16:05 ABG pCO2 52.3 mm Hg 05/02/19 16:05 ABG pO2 66.6 mm Hg (80.0-90.0) L 05/02/19 16:05 ABG HCO3 31.9 mmol/L (20.0-26.0) H 05/02/19 16:05 ABG O2 Saturation 92.5 % (95.0-99.0) L 05/02/19 16:05 Calcium 8.3 mg/dL (8.4-10.2) L 05/04/19 06:50 Phosphorus 4.90 mg/dL (2.5-4.5) H 05/02/19 00:06 Magnesium 2.30 mg/dL (1.7-2.3) 05/02/19 00:06 Medications & Allergies - Medications Allergies/Adverse Reactions: Allergies No Known Allergies Allergy (Verified 05/01/19 20:27) Home Medications: Home Medications Medication Instructions Recorded Confirmed Last Taken Type No Known Home Medications [No 05/03/19 05/03/19 Unknown History Reported Home Medications] Active Medications: Generic Name Dose Route Start Last Admin Trade Name Freq PRN Reason Stop Dose Admin Acetaminophen 650 mg 05/01/19 22:46 05/03/19 21:36 Tylenol PO 650 mg Q4H PRN Administration Pain MILD(1-3)/Fever >100.5/FREEMAN Dextrose 50 gm 05/01/19 20:24 D50w (25gm) Vial IV Q30MIN PRN Hypoglycemia Protocol Enoxaparin Sodium 30 mg 05/05/19 10:00 Enoxaparin SUB-Q QDAY VICKEY Famotidine 20 mg 05/05/19 10:00 Pepcid IV DAILY VICKEY Hydrophilic Ointment 1 applic 05/01/19 21:14 Vaseline Lip Therapy TP Q2HR PRN Dry Lips Fentanyl Citrate 2,000 mcg in 100 mls @ 10.195 mls/hr 05/01/19 22:00 05/04/19 14:24 Fentanyl Drip Premix IV 2 mcg/kg/hr TITR VICKEY 20.39 mls/hr Titration Protocol 1 MCG/KG/HR Propofol 1,000 mg in 100 mls @ 7.011 mls/hr 05/03/19 04:00 05/04/19 12:36 Diprivan 10 Mg/Ml IV 0 mcg/kg/min TITR VICKEY 0 mls/hr Titration Protocol 5 MCG/KG/MIN Ceftriaxone Sodium 2 gm in 100 mls @ 200 mls/hr 05/03/19 12:30 05/04/19 09:12 Rocephin/Ns 2 Gm/100 Ml IV 200 mls/hr Q24HR VICKEY Administration Protocol Metronidazole 500 mg in 100 mls @ 100 mls/hr 05/03/19 14:00 05/04/19 13:12 Flagyl 500 Mg/100 Ml IV 100 mls/hr Q8HR VICKEY Administration Protocol Norepinephrine 4 mg in 250 mls @ 7.5 mls/hr 05/03/19 18:00 Levophed Drip 4 Mg/Ns 250 Ml IV TITR VICKEY Protocol 2 MCG/MIN Sodium Chloride 1,000 mls @ 125 mls/hr 05/04/19 11:45 05/04/19 11:54 Nacl 0.9% 1000 Ml IV 125 mls/hr DIRECT VICKEY Administration Metoprolol Tartrate 25 mg 05/02/19 04:00 05/04/19 09:14 Metoprolol PO 25 mg BID VICKEY Administration Multi-Ingred Cream/Lotion/Oil/Oint 1 applic 05/01/19 21:14 Artificial Tears Ophth Oint OU Q4HR PRN Dry Eye(s) Ondansetron HCl 4 mg 05/01/19 22:46 Zofran IV Q8H PRN Nausea And Vomiting Sodium Chloride 10 ml 05/02/19 10:00 05/04/19 09:15 Sodium Chloride Flush Syringe 10 Ml IV 10 ml BID VICKEY Administration Sodium Chloride 10 ml 05/01/19 22:46 Sodium Chloride Flush Syringe 10 Ml IV PRN PRN LINE FLUSH
--- NOTE | 2019-05-04 16:51 | Progress Note ---
Assessment and Plan 34-year-old man who is morbidly obese with unknown medical problem was brought to the emergency room with complaints of shortness of breath and difficulty sleeping. History is per the chart, nurse reported that his saturation dropped to 28%, heart rate in the 50s, she checked on them, he was cyanotic and was subsequently intubated and recieved 2 rounds of epinephrine. Review of system is unobtainable patient had pulmonary edema, receive IV Lasix, also status post Zosyn, started on a fentanyl drip. s/p Cardiac arrest Resuscitated cardiology consulted, following Acute hypoxic respiratory failure Status post intubation, continue sedation, Wean us tolerated consulted pulmonary Acute CHF, new onset, probably diastolic Diurese with IV lasix, monitor I/O, daily weights Cardiology following. Added beta-jenny, no TIM inhibitor secondary to renal insufficiency Hypertension malignant Start antihypertensive, monitor blood pressure IV hydralazine as needed for further control Hyperkalemia, Now resolved Acute kidney injury due to ATN Repeat BMP in am Consult Nephrology Fever SIRS vs Sepsis Consult ID On empiric antibiotics Leukocytosis: To r/o SIRS versus Sepsis Continue Zosyn, Vanco, follow culture DVT prophylaxis with Lovenox Morbid obesity Full code status. Subjective Date of service: 05/04/19 Principal diagnosis: HF; acute hypoxemic resp failure, SIRS, CARLA Interval history: Remains intubated. On mechanical ventilation fall for 96 hours Objective - Exam Narrative Exam: Constitutional: Obese. Remains intubated connected to mechanical ventilation 96 hours Head: Normocephalic atraumatic Eyes: Pupils are equal round and reactive to light Nose: No enlarged turbinates, no septal deviation. Mouth: Moist mucous membranes. Neck: Supple no thyromegaly. No bruit. No JVD Heart: Regular rate and rhythm, S1-S2 normal. No rubs murmurs or gallop Lungs: Clear to auscultation bilaterally. no rales or rhonchi Abdomen: Soft, nontender. Bowel sound are present. Extremities: No edema, no cyanosis, no clubbing. Neuro: Intubated and unresponsive Skin: No rashes or hyperpigmented spots Musculoskeletal system: No joint pain or swelling Hematological: No petechia or subcutanous hemorrhages. Immunological: No multiple septic spots on the skin Lymphatic: No generalized lymphadenopathy Psychiatry: Intubated and unresponsive - Constitutional Vitals: Vital Signs - 12hr 12/10/19 12/10/19 12/10/19 05:00 05:11 05:21 Temperature Pulse Rate 113 H 107 H 119 H Pulse Rate [ From Monitor] Respiratory 16 16 18 Rate Blood Pressure 137/60 137/60 131/56 O2 Sat by Pulse 88 97 84 Oximetry 05/04/19 05/04/19 05/04/19 05:30 05:41 05:51 Temperature Pulse Rate 112 H 111 H 105 H Pulse Rate [ From Monitor] Respiratory 16 16 16 Rate Blood Pressure 147/60 147/60 136/56 O2 Sat by Pulse 90 96 99 Oximetry 05/04/19 05/04/19 05/04/19 06:00 06:11 06:21 Temperature Pulse Rate 103 H 102 H 102 H Pulse Rate [ From Monitor] Respiratory 16 16 15 Rate Blood Pressure 134/54 134/54 137/57 O2 Sat by Pulse 99 97 95 Oximetry 05/04/19 05/04/19 05/04/19 06:30 06:41 06:51 Temperature Pulse Rate 102 H 104 H 107 H Pulse Rate [ From Monitor] Respiratory 16 15 17 Rate Blood Pressure 132/57 132/57 137/64 O2 Sat by Pulse 94 92 88 Oximetry 05/04/19 05/04/19 05/04/19 07:00 07:11 07:21 Temperature Pulse Rate 111 H 109 H 107 H Pulse Rate [ From Monitor] Respiratory 16 16 15 Rate Blood Pressure 151/80 151/80 141/67 O2 Sat by Pulse 97 95 97 Oximetry 05/04/19 05/04/19 05/04/19 07:30 07:41 07:51 Temperature Pulse Rate 104 H 103 H 105 H Pulse Rate [ From Monitor] Respiratory 16 16 16 Rate Blood Pressure 141/65 141/65 131/64 O2 Sat by Pulse 96 99 91 Oximetry 05/04/19 05/04/19 05/04/19 08:00 08:11 08:21 Temperature 98.6 F Pulse Rate 102 H 103 H 109 H Pulse Rate [ 102 H From Monitor] Respiratory 16 16 17 Rate Blood Pressure 123/48 123/48 135/63 O2 Sat by Pulse 100 95 87 Oximetry 05/04/19 05/04/19 05/04/19 08:30 08:41 08:51 Temperature Pulse Rate 104 H 104 H 99 H Pulse Rate [ From Monitor] Respiratory 10 L 14 16 Rate Blood Pressure 132/55 132/55 127/53 O2 Sat by Pulse 98 91 97 Oximetry 05/04/19 05/04/19 05/04/19 09:00 09:11 09:14 Temperature Pulse Rate 104 H 101 H 102 H Pulse Rate [ From Monitor] Respiratory 14 15 Rate Blood Pressure 129/54 129/54 129/54 O2 Sat by Pulse 92 91 Oximetry 05/04/19 05/04/19 05/04/19 09:21 09:30 09:41 Temperature Pulse Rate 100 H 99 H 101 H Pulse Rate [ From Monitor] Respiratory 16 16 16 Rate Blood Pressure 130/53 135/58 135/58 O2 Sat by Pulse 99 100 93 Oximetry 05/04/19 05/04/19 05/04/19 09:51 10:00 10:11 Temperature Pulse Rate 96 H 100 H 97 H Pulse Rate [ From Monitor] Respiratory 17 16 16 Rate Blood Pressure 131/56 116/50 116/50 O2 Sat by Pulse 90 91 93 Oximetry 05/04/19 05/04/19 05/04/19 10:21 10:30 10:41 Temperature Pulse Rate 97 H 95 H 96 H Pulse Rate [ From Monitor] Respiratory 14 16 14 Rate Blood Pressure 115/53 119/48 119/48 O2 Sat by Pulse 91 92 100 Oximetry 05/04/19 05/04/19 05/04/19 10:51 11:00 11:11 Temperature Pulse Rate 96 H 95 H 97 H Pulse Rate [ From Monitor] Respiratory 16 16 17 Rate Blood Pressure 117/49 115/45 115/45 O2 Sat by Pulse 98 98 95 Oximetry 05/04/19 05/04/19 05/04/19 11:21 11:23 11:30 Temperature Pulse Rate 96 H 95 H 96 H Pulse Rate [ From Monitor] Respiratory 16 16 Rate Blood Pressure 112/44 112/44 114/47 O2 Sat by Pulse 95 100 98 Oximetry 05/04/19 05/04/19 05/04/19 11:41 11:51 12:00 Temperature 99.7 F H Pulse Rate 98 H 100 H 96 H Pulse Rate [ 96 H From Monitor] Respiratory 18 16 16 Rate Blood Pressure 114/47 114/47 114/46 O2 Sat by Pulse 95 92 97 Oximetry 05/04/19 05/04/19 05/04/19 12:11 12:21 12:30 Temperature Pulse Rate 99 H 104 H 98 H Pulse Rate [ From Monitor] Respiratory 15 16 16 Rate Blood Pressure 114/46 114/46 122/49 O2 Sat by Pulse 94 100 100 Oximetry 05/04/19 05/04/19 05/04/19 12:41 12:51 13:00 Temperature Pulse Rate 120 H 113 H 114 H Pulse Rate [ From Monitor] Respiratory 14 16 16 Rate Blood Pressure 122/49 139/68 144/72 O2 Sat by Pulse 75 L 84 96 Oximetry 05/04/19 05/04/19 05/04/19 13:11 13:21 13:30 Temperature Pulse Rate 114 H 112 H 107 H Pulse Rate [ From Monitor] Respiratory 18 17 17 Rate Blood Pressure 144/72 140/69 122/64 O2 Sat by Pulse 86 100 91 Oximetry 05/04/19 05/04/19 05/04/19 13:41 13:51 14:00 Temperature Pulse Rate 100 H 101 H 98 H Pulse Rate [ From Monitor] Respiratory 16 16 16 Rate Blood Pressure 122/64 122/52 120/47 O2 Sat by Pulse 95 90 96 Oximetry 05/04/19 05/04/19 05/04/19 14:11 14:21 14:30 Temperature Pulse Rate 102 H 100 H 99 H Pulse Rate [ From Monitor] Respiratory 18 15 25 H Rate Blood Pressure 120/47 128/58 116/48 O2 Sat by Pulse 87 90 85 Oximetry 05/04/19 05/04/19 05/04/19 14:41 14:51 15:00 Temperature Pulse Rate 96 H 97 H 105 H Pulse Rate [ From Monitor] Respiratory 16 16 16 Rate Blood Pressure 116/48 125/58 133/73 O2 Sat by Pulse 93 95 85 Oximetry 05/04/19 05/04/19 05/04/19 15:11 15:21 15:31 Temperature Pulse Rate 107 H 110 H 118 H Pulse Rate [ From Monitor] Respiratory 15 18 14 Rate Blood Pressure 133/73 130/80 127/82 O2 Sat by Pulse 96 94 88 Oximetry 05/04/19 05/04/19 05/04/19 15:41 15:51 16:00 Temperature 100.1 F H Pulse Rate 113 H 103 H 97 H Pulse Rate [ 96 H From Monitor] Respiratory 13 24 16 Rate Blood Pressure 127/82 138/55 112/48 O2 Sat by Pulse 78 L 95 94 Oximetry 05/04/19 16:09 Temperature Pulse Rate 94 H Pulse Rate [ From Monitor] Respiratory Rate Blood Pressure 112/48 O2 Sat by Pulse 95 Oximetry - Labs CBC & Chem 7: 05/04/19 06:50 05/04/19 06:50 Labs: Abnormal lab results 05/03/19 05/04/19 05/04/19 Range/Units 16:48 04:49 06:50 WBC 16.0 H (4.5-11.0) K/mm3 MCH 27 L (28-32) pg MCHC 31 L (32-34) % RDW 17.8 H (13.2-15.2) % POC ABG pH 7.604 H 7.273 L (7.35-7.45) POC ABG pO2 58 L (80-105) Sodium (137-145) mmol/L Potassium (3.6-5.0) mmol/L BUN (9-20) mg/dL Creatinine (0.8-1.5) mg/dL Glucose (75-100) mg/dL Calcium (8.4-10.2) mg/dL 05/04/19 Range/Units 06:50 WBC (4.5-11.0) K/mm3 MCH (28-32) pg MCHC (32-34) % RDW (13.2-15.2) % POC ABG pH (7.35-7.45) POC ABG pO2 (80-105) Sodium 148 H (137-145) mmol/L Potassium 5.5 H (3.6-5.0) mmol/L BUN 53 H (9-20) mg/dL Creatinine 3.3 H D (0.8-1.5) mg/dL Glucose 106 H (75-100) mg/dL Calcium 8.3 L (8.4-10.2) mg/dL
[2019-05-05] MEDS: fentaNYL DRIP Premix 2,000 MCG/100 ML BAG IV SCH ×7 (02:26→23:57)
--- NOTE | 2019-05-05 02:42 | XRay Report ---
CHEST 1 VIEW 05/05/2019 2:21 AM INDICATION / CLINICAL INFORMATION: follow up respiratory failure. COMPARISON: One view of the chest from 05/04/2019. FINDINGS: SUPPORT DEVICES: Stable positioning. HEART / MEDIASTINUM: Stable. LUNGS / PLEURA: There are similar bilateral pulmonary opacities. No significant pleural effusion. No pneumothorax. ADDITIONAL FINDINGS: No significant additional findings. IMPRESSION: Stable appearance of the chest. Signer Name: Mina Calloway MD Signed: 05/05/2019 2:37 AM Workstation Name: [id number]
[2019-05-05] MEDS: metroNIDAZOLE/NS 500 MG/100 ML 500 MG/100 ML BAG IV SCH ×3 (05:19→21:48)
[2019-05-05 05:50] LABS: Basophils # (Auto) 0.1 K/mm3 (0.0-0.1); Basophils % (Auto) 0.5 % (0.0-1.8); Eosinophils # (Auto) 0.1 K/mm3 (0.0-0.4); Eosinophils % (Auto) 0.6 % (0.0-4.3); Lymphocytes % (Auto) 7.9 % (13.4-35.0); Mean Corpuscular HGB Conc 30 % (32-34); Mean Corpuscular Volume 89 fl (84-94); Monocytes # (Auto) 1.2 K/mm3 (0.0-0.8); Monocytes % (Auto) 10.2 % (0.0-7.3); Platelet Count 212 K/mm3 (140-440); Red Cell Distribution Width 18.4 % (13.2-15.2)
[2019-05-05 06:07] LABS: Hematocrit 37.3 % (35.5-45.6); Hemoglobin 11.3 gm/dl (11.8-15.2)
[2019-05-05 06:16] LABS: Albumin 2.9 g/dL (3.9-5); Calcium 7.5 mg/dL (8.4-10.2)
--- NOTE | 2019-05-05 08:28 | Progress Note ---
Assessment and Plan Assessment and plan: 34-year-old man who is morbidly obese with unknown medical problem was brought to the emergency room with complaints of shortness of breath and difficulty sleeping. History is per the chart, nurse reported that his saturation dropped to 28%, heart rate in the 50s, she checked on them, he was cyanotic and was subsequently intubated and recieved 2 rounds of epinephrine. Cardiac arrest. s/p Cardiac arrest Resuscitated cardiology consulted, following Acute hypoxic respiratory failure Status post intubation, continue sedation, consulted pulmonary Acute CHF, new onset, Diurese with IV lasix, monitor I/O, daily weights Cardiology following. Added beta-jenny, no TIM inhibitor secondary to renal insufficiency Hypertension malignant Start antihypertensive, monitor blood pressure IV hydralazine as needed for further control Acute kidney injury due to ATN Worsening Nephrology following Hyperkalemia kayexalate today repeat potassium in am Fever due to SIRS versus Sepsis Consulted ID, following On empiric antibiotics Leukocytosis: SIRS versus Sepsis DVT prophylaxis with Lovenox Morbid obesity Full code status. Prognosis guarded The high probability of a clinically significant, sudden or life threatening deterioration of the [cardiovascular, Pulmonary, renal, neurological] system(s) required my full and direct attention, intervention and personal management. The aggregate critical care time was [35] minutes. This time is in addition to time spent performing reported procedures but includes the following: [x] Data Review and interpretation [x] Patient assessment and monitoring of vital signs [x] Documentation [x] Medication orders and management History Interval history: Shortness of breath, cardiopulm arrest s/p intubated Extubated Hospitalist Physical - Physical exam Narrative exam: Gen: Not in acute distress,intubated, on vent, morbidly obese HEENT: Normocephalic, atraumatic Neck: supple, no JVD Heart: S1 and S2 reg, no murmurs, rubs or gallop Lungs: Clear to auscultation bilaterally, no wheeze Abd: soft, NT, non distended, normal bowel sounds Ext:No edema, no cyanosis Neuro: Intubated,sedated - Constitutional Vitals: Temp Pulse Resp BP Pulse Ox 97.7 F 100 H 19 107/60 90 05/05/19 08:00 05/05/19 07:10 05/05/19 07:10 05/05/19 07:10 05/05/19 07:10 General appearance: Present: no acute distress Results - Labs CBC & Chem 7: 05/05/19 05:00 05/05/19 05:00 Labs: Laboratory Last Values WBC 12.0 K/mm3 (4.5-11.0) H 05/05/19 05:00 RBC 4.20 M/mm3 (3.65-5.03) 05/05/19 05:00 Hgb 11.3 gm/dl (11.8-15.2) L 05/05/19 05:00 Hct 37.3 % (35.5-45.6) 05/05/19 05:00 MCV 89 fl (84-94) 05/05/19 05:00 MCH 27 pg (28-32) L 05/05/19 05:00 MCHC 30 % (32-34) L 05/05/19 05:00 RDW 18.4 % (13.2-15.2) H 05/05/19 05:00 Plt Count 212 K/mm3 (140-440) 05/05/19 05:00 Lymph % (Auto) 7.9 % (13.4-35.0) L 05/05/19 05:00 [place] % (Auto) 10.2 % (0.0-7.3) H 05/05/19 05:00 Eos % (Auto) 0.6 % (0.0-4.3) 05/05/19 05:00 Baso % (Auto) 0.5 % (0.0-1.8) 05/05/19 05:00 Lymph # 1.0 K/mm3 (1.2-5.4) L 05/05/19 05:00 [place] # 1.2 K/mm3 (0.0-0.8) H 05/05/19 05:00 Eos # 0.1 K/mm3 (0.0-0.4) 05/05/19 05:00 Baso # 0.1 K/mm3 (0.0-0.1) 05/05/19 05:00 Seg Neutrophils % 80.8 % (40.0-70.0) H 05/05/19 05:00 Seg Neutrophils # 9.7 K/mm3 (1.8-7.7) H 05/05/19 05:00 PT 15.4 Sec. (12.2-14.9) H 05/01/19 Unknown INR 1.23 (0.87-1.13) H 05/01/19 Unknown APTT 22.7 Sec. (24.2-36.6) L 05/01/19 Unknown POC ABG pH 7.225 (7.35-7.45) L 05/05/19 04:30 ABG pH 7.403 pH Units (7.350-7.450) 05/02/19 16:05 POC ABG pCO2 35.2 (35-45) 05/03/19 16:48 ABG pCO2 52.3 mm Hg 05/02/19 16:05 POC ABG pO2 94 (80-105) 05/05/19 04:30 ABG pO2 66.6 mm Hg (80.0-90.0) L 05/02/19 16:05 POC ABG HCO3 36.8 (22-26 mml/L) 05/05/19 04:30 ABG HCO3 31.9 mmol/L (20.0-26.0) H 05/02/19 16:05 POC ABG Total CO2 39 (23-27mmol/L) 05/05/19 04:30 POC ABG O2 Sat 95 05/05/19 04:30 ABG O2 Saturation 92.5 % (95.0-99.0) L 05/02/19 16:05 ABG O2 Content 16.9 (0.0-44) 05/02/19 16:05 POC ABG Base Excess 9 ((-2) - (+3)mmol/L) 05/05/19 04:30 ABG Base Excess 5.8 mmol/L (-2.0-3.0) H 05/02/19 16:05 ABG Hemoglobin 13.3 gm/dl (14.0-18.0) L 05/02/19 16:05 ABG Carboxyhemoglobin 1.6 % (0.0-5.0) 05/02/19 16:05 ABG Methemoglobin 0.6 % (0.0-1.5) 05/02/19 16:05 Oxyhemoglobin 90.6 % (95.0-99.0) L 05/02/19 16:05 FiO2 100 % 05/05/19 04:30 Sodium 151 mmol/L (137-145) H 05/05/19 05:00 Potassium 5.1 mmol/L (3.6-5.0) H 05/05/19 05:00 Chloride 105.2 mmol/L (98-107) 05/05/19 05:00 Carbon Dioxide 28 mmol/L (22-30) 05/05/19 05:00 Anion Gap 23 mmol/L 05/05/19 05:00 BUN 64 mg/dL (9-20) H 05/05/19 05:00 Creatinine 3.5 mg/dL (0.8-1.5) H 05/05/19 05:00 Estimated GFR 25 ml/min 05/05/19 05:00 BUN/Creatinine Ratio 18 % 05/05/19 05:00 Glucose 117 mg/dL (75-100) H 05/05/19 05:00 POC Glucose 99 (70-105) 05/05/19 05:51 Calcium 7.5 mg/dL (8.4-10.2) L 05/05/19 05:00 Phosphorus 4.90 mg/dL (2.5-4.5) H 05/02/19 00:06 Magnesium 2.30 mg/dL (1.7-2.3) 05/02/19 00:06 Total Bilirubin 0.40 mg/dL (0.1-1.2) 05/05/19 05:00 AST 93 units/L (5-40) H 05/05/19 05:00 ALT 65 units/L (7-56) H 05/05/19 05:00 Alkaline Phosphatase 70 units/L (35-129) 05/05/19 05:00 Total Creatine Kinase 131 units/L (55-170) 05/02/19 04:41 CK-MB (CK-2) 5.2 ng/mL (0.0-4.0) H 05/02/19 04:41 CK-MB (CK-2) Rel Index 3.9 (0-4) 05/02/19 04:41 Troponin T 0.067 ng/mL (0.00-0.029) H D 05/02/19 04:41 NT-Pro-B Natriuret Pep 6831 pg/mL (0-450) H 05/01/19 Unknown Total Protein 6.9 g/dL (6.3-8.2) 05/05/19 05:00 Albumin 2.9 g/dL (3.9-5) L 05/05/19 05:00 Albumin/Globulin Ratio 0.7 % 05/05/19 05:00 Triglycerides 182 mg/dL (2-149) H 05/02/19 00:06 Cholesterol 173 mg/dL (50-199) 05/02/19 00:06 LDL Cholesterol Direct 126 mg/dL (50-130) 05/02/19 00:06 HDL Cholesterol 18 mg/dL (40-59) L 05/02/19 00:06 Cholesterol/HDL Ratio 9.61 % 05/02/19 00:06 Procalcitonin 0.54 ng/mL (<0.15) 05/03/19 11:52 Urine Color Yellow (Yellow) 05/03/19 10:55 Urine Turbidity Turbid (Clear) 05/03/19 10:55 Urine pH 5.0 (5.0-7.0) 05/03/19 10:55 Ur Specific [place] 1.014 (1.003-1.030) 05/03/19 10:55 Urine Protein <15 mg/dl mg/dL (Negative) 05/03/19 10:55 Urine Glucose (UA) Neg mg/dL (Negative) 05/03/19 10:55 Urine Ketones Neg mg/dL (Negative) 05/03/19 10:55 Urine Blood Lg (Negative) 05/03/19 10:55 Urine Nitrite Neg (Negative) 05/03/19 10:55 Urine Bilirubin Neg (Negative) 05/03/19 10:55 Urine Urobilinogen < 2.0 mg/dL (<2.0) 05/03/19 10:55 Ur Leukocyte Esterase Mod (Negative) 05/03/19 10:55 Urine WBC (Auto) 33.0 /HPF (0.0-6.0) H 05/03/19 10:55 Urine RBC (Auto) 8.0 /HPF (0.0-6.0) 05/03/19 10:55 Urine Bacteria (Auto) 1+ /HPF (Negative) 05/03/19 10:55 Uric Acid Crystals 3+ 05/03/19 10:55 Urine Mucus Few /HPF 05/03/19 10:55 Active Medications - Current Medications Current Medications: Generic Name Dose Route Start Last Admin Trade Name Freq PRN Reason Stop Dose Admin Acetaminophen 650 mg 05/01/19 22:46 05/03/19 21:36 Tylenol PO 650 mg Q4H PRN Administration Pain MILD(1-3)/Fever >100.5/FREEMAN Dextrose 50 gm 05/01/19 20:24 D50w (25gm) Vial IV Q30MIN PRN Hypoglycemia Protocol Enoxaparin Sodium 30 mg 05/05/19 10:00 Enoxaparin SUB-Q QDAY VICKEY Famotidine 20 mg 05/05/19 10:00 Pepcid PO DAILY VICKEY Hydrophilic Ointment 1 applic 05/01/19 21:14 Vaseline Lip Therapy TP Q2HR PRN Dry Lips Fentanyl Citrate 2,000 mcg in 100 mls @ 10.195 mls/hr 05/01/19 22:00 05/05/19 06:15 Fentanyl Drip Premix IV 2 mcg/kg/hr TITR VICKEY 20.39 mls/hr Administration Protocol 1 MCG/KG/HR Propofol 1,000 mg in 100 mls @ 7.011 mls/hr 05/03/19 04:00 05/05/19 07:36 Diprivan 10 Mg/Ml IV 0 mcg/kg/min TITR VICKEY 0 mls/hr Titration Protocol 5 MCG/KG/MIN Ceftriaxone Sodium 2 gm in 100 mls @ 200 mls/hr 05/03/19 12:30 05/04/19 09:12 Rocephin/Ns 2 Gm/100 Ml IV 200 mls/hr Q24HR VICKEY Administration Protocol Metronidazole 500 mg in 100 mls @ 100 mls/hr 05/03/19 14:00 05/05/19 05:19 Flagyl 500 Mg/100 Ml IV 100 mls/hr Q8HR VICKEY Administration Protocol Norepinephrine 4 mg in 250 mls @ 7.5 mls/hr 05/03/19 18:00 Levophed Drip 4 Mg/Ns 250 Ml IV TITR VICKEY Protocol 2 MCG/MIN Sodium Chloride 1,000 mls @ 125 mls/hr 05/04/19 11:45 05/04/19 21:30 Nacl 0.9% 1000 Ml IV 125 mls/hr DIRECT VICKEY Administration Metoprolol Tartrate 25 mg 05/02/19 04:00 05/04/19 21:30 Metoprolol PO 25 mg BID VICKEY Administration Multi-Ingred Cream/Lotion/Oil/Oint 1 applic 05/01/19 21:14 Artificial Tears Ophth Oint OU Q4HR PRN Dry Eye(s) Ondansetron HCl 4 mg 05/01/19 22:46 Zofran IV Q8H PRN Nausea And Vomiting Sodium Chloride 10 ml 05/02/19 10:00 05/05/19 02:30 Sodium Chloride Flush Syringe 10 Ml IV 10 ml BID VICKEY Administration Sodium Chloride 10 ml 05/01/19 22:46 05/05/19 02:28 Sodium Chloride Flush Syringe 10 Ml IV 10 ml PRN PRN Administration LINE FLUSH Nutrition/Malnutrition Assess - Dietary Evaluation Nutrition/Malnutrition Findings: Nutrition Notes Start: 05/04/19 12:54 Freq: Status: Active Protocol: Document 05/04/19 12:54 DW (Rec: 05/04/19 14:08 DW [id number]) Co-Sign 05/04/19 12:54 LM Nutrition Notes Need for Assessment generated from: MD Order Initial or Follow up Assessment Current Diagnosis Acute Kidney Injury,Sepsis, Respiratory Failure Current Diet NPO Labs/Tests Na 148 K 5.5 Glu 106 BUN 53 Cr 3.3 Pertinent Medications Propofol at 7 ml/hr (184 kcal) Flagyl Height 6 ft 4 in Weight 227.5 kg [place] Body Weight (kg) 91.81 BMI 61.0 Weight Status Morbidly Obese Subjective/Other Information Verbal Consult for TF from MD Pt on vent Burn Absent Trauma Absent Current % PO Negligible Minimum of two criteria No physical signs of malnutrition #1 Nutrition Diagnosis Inadequate oral intake Etiology pt on vent As Evidenced by Signs and Symptoms pt NPO Is patient on ventilator? Yes Is Patient Ambulatory and/or Out of Bed No REE-([facility]-confined to bed) 3986.244 Kcal/Kg value to use for calculation 11 Approximate Energy Requirements Using 2503 kcal/Kg Calculation Used for Recommendations Kcal/kg Additional Notes PRO needs: 225 g (up to 2.5 g/ kg 91.81 IBW) Fluid needs: 1 ml/kcal Nutrition Intervention Change Diet Order: TF Nutrition Support: [place] 1.8 at 60ml/hr 250 ml flush q4h Kcal 2,592 Protein (gm) 116 Fluid (mL) 1,167 Goal #1 TF tolerance Goal #2 Meet at least 75% kcal/PRO needs via TF Anticipated Discharge Needs: Unable to determine at this time Follow-Up By: 05/05/19 Additional Comments FU TF start, Na labs
[2019-05-05] MEDS ORDERED: DEXTROSE 5% IN WATER 400 ML IV SCH (09:00)
--- NOTE | 2019-05-05 09:49 | Progress Note ---
Assessment and Plan - Patient Problems (1) Acute kidney injury Current Visit: Yes Status: Acute Plan to address problem: Acute kidney injury worsening Baseline creatinine unknown Kidney function is worsening Chest x-ray with concern for Bibasilar haziness? Atelectasis Renal function worsened with diuresis ? Volume depletion Received bolus of saline Continue saline infusion at 125cc/hr Repeat BMP (2) Hypercapnic respiratory failure Current Visit: Yes Status: Acute Qualifiers: Chronicity: acute on chronic Qualified Code(s): J96.22 - Acute and chronic respiratory failure with hypercapnia Plan to address problem: Acute on chronic respiratory failure with hypercapnia Patient is currently intubated FiO2 100% chest x-ray with some concern for bibasilar haziness Given morbid obesity. Obesity hypoventilation Wean oxygen as tolerated (3) Anemia Current Visit: Yes Status: Acute Plan to address problem: Mild anemia Monitor CBC (4) Fever Current Visit: Yes Status: Acute Plan to address problem: Fever workup for infectious causes Infectious disease is following (5) Hyperkalemia Current Visit: Yes Status: Acute Plan to address problem: hyperkalemia Secondary to acute kidney injury We'll give Kayexalate We'll also give Florinef (6) Hypernatremia Current Visit: Yes Status: Acute Plan to address problem: Hypernatremia iatrogenic Secondary to saline infusions We'll give D5 water bolus Subjective Principal diagnosis: HF; acute hypoxemic resp failure, SIRS, CARLA Interval history: 34-year-old gentleman with morbid obesity, found with cyanosis difficulty with breathing and brought to the emergency room he required intubation review of s ystems unobtainable patient remains intubated and FiO2 100% he has had worsening renal function nephrology consulted for this. He was subsequently found to have a fever infectious diseases is following Patient seen to be remains intubated and sedated FiO2 100% declining renal function however urine is improving compared to yesterday Berkowitz catheter in place Has upper extremity edema Objective - Vital Signs Vital signs: Vital Signs - 12hr 05/04/19 05/04/19 05/04/19 21:50 22:00 22:10 Temperature Pulse Rate 97 H 95 H 95 H Pulse Rate [ From Monitor] Respiratory 16 17 16 Rate Blood Pressure 121/51 111/42 111/42 O2 Sat by Pulse 88 87 86 Oximetry 05/04/19 05/04/19 05/04/19 22:20 22:30 22:40 Temperature Pulse Rate 96 H 98 H 99 H Pulse Rate [ From Monitor] Respiratory 16 19 16 Rate Blood Pressure 114/47 115/43 115/43 O2 Sat by Pulse 82 L 80 L 80 L Oximetry 05/04/19 05/04/19 05/04/19 22:50 23:00 23:10 Temperature Pulse Rate 99 H 97 H 99 H Pulse Rate [ From Monitor] Respiratory 15 16 16 Rate Blood Pressure 112/42 114/42 114/42 O2 Sat by Pulse 84 89 88 Oximetry 05/04/19 05/04/19 05/04/19 23:20 23:30 23:40 Temperature Pulse Rate 98 H 100 H 100 H Pulse Rate [ From Monitor] Respiratory 16 16 16 Rate Blood Pressure 114/43 117/45 117/45 O2 Sat by Pulse 90 93 92 Oximetry 05/04/19 05/05/19 05/05/19 23:50 00:00 00:10 Temperature 100.2 F H Pulse Rate 99 H 97 H 97 H Pulse Rate [ 100 H From Monitor] Respiratory 16 16 15 Rate Blood Pressure 115/39 108/37 108/37 O2 Sat by Pulse 93 94 95 Oximetry 05/05/19 05/05/19 05/05/19 00:20 00:30 00:31 Temperature Pulse Rate 96 H 97 H 97 H Pulse Rate [ From Monitor] Respiratory 16 16 Rate Blood Pressure 106/37 104/38 104/38 O2 Sat by Pulse 95 95 95 Oximetry 05/05/19 05/05/19 05/05/19 00:40 00:50 01:00 Temperature Pulse Rate 101 H 104 H 104 H Pulse Rate [ From Monitor] Respiratory 16 18 16 Rate Blood Pressure 104/38 119/41 121/47 O2 Sat by Pulse 95 94 92 Oximetry 05/05/19 05/05/19 05/05/19 01:10 01:20 01:30 Temperature Pulse Rate 101 H 106 H 101 H Pulse Rate [ From Monitor] Respiratory 16 15 17 Rate Blood Pressure 121/47 120/48 122/41 O2 Sat by Pulse 92 92 91 Oximetry 05/05/19 05/05/19 05/05/19 01:40 01:50 02:00 Temperature Pulse Rate 103 H 100 H 99 H Pulse Rate [ From Monitor] Respiratory 16 16 16 Rate Blood Pressure 122/41 118/40 114/42 O2 Sat by Pulse 92 91 92 Oximetry 05/05/19 05/05/19 05/05/19 02:10 02:20 02:30 Temperature Pulse Rate 97 H 99 H 97 H Pulse Rate [ From Monitor] Respiratory 16 14 16 Rate Blood Pressure 114/42 117/39 105/38 O2 Sat by Pulse 92 93 94 Oximetry 05/05/19 05/05/19 05/05/19 02:40 02:50 03:00 Temperature Pulse Rate 100 H 98 H 96 H Pulse Rate [ From Monitor] Respiratory 16 16 16 Rate Blood Pressure 105/38 118/43 115/44 O2 Sat by Pulse 93 93 93 Oximetry 05/05/19 05/05/19 05/05/19 03:10 03:20 03:30 Temperature Pulse Rate 96 H 96 H 95 H Pulse Rate [ From Monitor] Respiratory 16 16 16 Rate Blood Pressure 105/38 110/43 109/41 O2 Sat by Pulse 94 94 94 Oximetry 05/05/19 05/05/19 05/05/19 03:40 03:50 04:00 Temperature 100.3 F H Pulse Rate 96 H 98 H 95 H Pulse Rate [ 100 H From Monitor] Respiratory 16 16 16 Rate Blood Pressure 109/41 110/44 105/37 O2 Sat by Pulse 95 95 95 Oximetry 05/05/19 05/05/19 05/05/19 04:09 04:10 04:20 Temperature Pulse Rate 96 H 96 H 95 H Pulse Rate [ From Monitor] Respiratory 16 16 Rate Blood Pressure 105/37 105/37 109/38 O2 Sat by Pulse 95 95 95 Oximetry 05/05/19 05/05/19 05/05/19 04:30 04:40 04:50 Temperature Pulse Rate 94 H 100 H Pulse Rate [ From Monitor] Respiratory 16 14 Rate Blood Pressure 106/37 106/37 91/33 O2 Sat by Pulse 95 97 88 Oximetry 05/05/19 05/05/19 05/05/19 05:00 05:10 05:20 Temperature Pulse Rate 103 H 97 H 93 H Pulse Rate [ From Monitor] Respiratory 16 22 22 Rate Blood Pressure 110/40 91/33 106/34 O2 Sat by Pulse 87 94 96 Oximetry 05/05/19 05/05/19 05/05/19 05:30 05:40 05:50 Temperature Pulse Rate 89 90 91 H Pulse Rate [ From Monitor] Respiratory 22 22 21 Rate Blood Pressure 94/37 94/37 94/38 O2 Sat by Pulse 98 98 99 Oximetry 05/05/19 05/05/19 05/05/19 06:00 06:10 06:20 Temperature Pulse Rate 90 86 86 Pulse Rate [ From Monitor] Respiratory 26 H 22 22 Rate Blood Pressure 101/52 101/52 99/49 O2 Sat by Pulse 99 99 99 Oximetry 05/05/19 05/05/19 05/05/19 06:30 06:40 06:50 Temperature Pulse Rate 84 89 94 H Pulse Rate [ From Monitor] Respiratory 22 19 22 Rate Blood Pressure 97/47 97/47 107/51 O2 Sat by Pulse 99 100 100 Oximetry 05/05/19 05/05/19 05/05/19 07:00 07:10 07:20 Temperature Pulse Rate 119 H 100 H 90 Pulse Rate [ From Monitor] Respiratory 13 19 22 Rate Blood Pressure 107/60 107/60 105/44 O2 Sat by Pulse 88 90 93 Oximetry 05/05/19 05/05/19 05/05/19 07:30 07:40 07:50 Temperature Pulse Rate 87 84 86 Pulse Rate [ From Monitor] Respiratory 22 22 22 Rate Blood Pressure 98/42 102/46 104/45 O2 Sat by Pulse 95 96 96 Oximetry 05/05/19 05/05/19 05/05/19 08:00 08:10 08:20 Temperature 97.7 F Pulse Rate 84 85 100 H Pulse Rate [ 84 From Monitor] Respiratory 22 22 15 Rate Blood Pressure 101/44 104/45 119/72 O2 Sat by Pulse 96 97 97 Oximetry 05/05/19 05/05/19 05/05/19 08:30 08:40 08:50 Temperature Pulse Rate 105 H 111 H 107 H Pulse Rate [ From Monitor] Respiratory 19 23 16 Rate Blood Pressure 119/72 118/56 123/53 O2 Sat by Pulse 90 82 L 87 Oximetry - General Appearance General appearance: obese EENT: ATNC, PERRL, mucous membranes moist Neck: no JVD Respiratory: Present: Clear to Ascultation Cardiology: regular, S1S2 Gastrointestinal: normal, normoactive bowel sounds Integumentary: no rash Neurologic: CN 3-12 intact, other (sedated unable to assess) Musculoskeletal: other (extremity swelling) Psychiatric: other (unable to assess sedated) - Lab 05/05/19 05:00 05/05/19 05:00 Most recent lab results ABG pH 7.403 pH Units (7.350-7.450) 05/02/19 16:05 ABG pCO2 52.3 mm Hg 05/02/19 16:05 ABG pO2 66.6 mm Hg (80.0-90.0) L 05/02/19 16:05 ABG HCO3 31.9 mmol/L (20.0-26.0) H 05/02/19 16:05 ABG O2 Saturation 92.5 % (95.0-99.0) L 05/02/19 16:05 Calcium 7.5 mg/dL (8.4-10.2) L 05/05/19 05:00 Phosphorus 4.90 mg/dL (2.5-4.5) H 05/02/19 00:06 Magnesium 2.30 mg/dL (1.7-2.3) 05/02/19 00:06 - Imaging Chest x-ray: image reviewed (review chest x-ray hazy opacities possible atelectasis) Medications & Allergies - Medications Allergies/Adverse Reactions: Allergies No Known Allergies Allergy (Verified 05/01/19 20:27) Home Medications: Home Medications Medication Instructions Recorded Confirmed Last Taken Type No Known Home Medications [No 05/03/19 05/03/19 Unknown History Reported Home Medications] Active Medications: Generic Name Dose Route Start Last Admin Trade Name Freq PRN Reason Stop Dose Admin Acetaminophen 650 mg 05/01/19 22:46 05/03/19 21:36 Tylenol PO 650 mg Q4H PRN Administration Pain MILD(1-3)/Fever >100.5/FREEMAN Dextrose 50 gm 05/01/19 20:24 D50w (25gm) Vial IV Q30MIN PRN Hypoglycemia Protocol Enoxaparin Sodium 30 mg 05/05/19 10:00 Enoxaparin SUB-Q QDAY VICKEY Famotidine 20 mg 05/05/19 10:00 Pepcid PO DAILY VICKEY Hydrophilic Ointment 1 applic 05/01/19 21:14 Vaseline Lip Therapy TP Q2HR PRN Dry Lips Fentanyl Citrate 2,000 mcg in 100 mls @ 10.195 mls/hr 05/01/19 22:00 05/05/19 06:15 Fentanyl Drip Premix IV 2 mcg/kg/hr TITR VICKEY 20.39 mls/hr Administration Protocol 1 MCG/KG/HR Propofol 1,000 mg in 100 mls @ 7.011 mls/hr 05/03/19 04:00 05/05/19 07:36 Diprivan 10 Mg/Ml IV 0 mcg/kg/min TITR VICKEY 0 mls/hr Titration Protocol 5 MCG/KG/MIN Ceftriaxone Sodium 2 gm in 100 mls @ 200 mls/hr 05/03/19 12:30 05/04/19 09:12 Rocephin/Ns 2 Gm/100 Ml IV 200 mls/hr Q24HR VICKEY Administration Protocol Metronidazole 500 mg in 100 mls @ 100 mls/hr 05/03/19 14:00 05/05/19 05:19 Flagyl 500 Mg/100 Ml IV 100 mls/hr Q8HR VICKEY Administration Protocol Norepinephrine 4 mg in 250 mls @ 7.5 mls/hr 05/03/19 18:00 Levophed Drip 4 Mg/Ns 250 Ml IV TITR VICKEY Protocol 2 MCG/MIN Sodium Chloride 1,000 mls @ 125 mls/hr 05/04/19 11:45 05/04/19 21:30 Nacl 0.9% 1000 Ml IV 125 mls/hr DIRECT VICKEY Administration Metoprolol Tartrate 25 mg 05/02/19 04:00 05/04/19 21:30 Metoprolol PO 25 mg BID VICKEY Administration Multi-Ingred Cream/Lotion/Oil/Oint 1 applic 05/01/19 21:14 Artificial Tears Ophth Oint OU Q4HR PRN Dry Eye(s) Ondansetron HCl 4 mg 05/01/19 22:46 Zofran IV Q8H PRN Nausea And Vomiting Sodium Chloride 10 ml 05/02/19 10:00 05/05/19 02:30 Sodium Chloride Flush Syringe 10 Ml IV 10 ml BID VICKEY Administration Sodium Chloride 10 ml 05/01/19 22:46 05/05/19 02:28 Sodium Chloride Flush Syringe 10 Ml IV 10 ml PRN PRN Administration LINE FLUSH Sodium Polystyrene Sulfonate 30 gm 05/05/19 10:00 Kionex PO 05/05/19 10:01 ONCE ONE
[2019-05-05] MEDS: ENOXAPARIN 30 MG/0.3 ML INJ SUB-Q SCH (09:58)
[2019-05-05] MEDS: FAMOTIDINE 20 MG TAB PO SCH (09:59)
[2019-05-05] MEDS: cefTRIAXone/NS 2 GM/100 ML 2 GM/100 ML BAG IV SCH (09:59)
[2019-05-05] MEDS ORDERED: SODIUM POLYSTYRENE 15 GM/60 ML ORAL LIQD PO ONE (10:00)
--- NOTE | 2019-05-05 10:05 | XRay Report ---
CHEST 1 VIEW INDICATION: Acute kidney injury. COMPARISON: 05/05/2019 FINDINGS: Support devices: Stable Heart: Stable mild cardiomegaly Lungs/Pleura: Stable central pulmonary venous congestion. Mild discoid atelectasis has developed in t he right middle lobe. Additional findings: None. IMPRESSION: No significant interval change. Signer Name: Doni Jeffrey Jr, MD Signed: 05/05/2019 10:01 AM Workstation Name: [id number]
[2019-05-05] MEDS: FLUDROCORTISONE 0.1 MG TAB PO SCH (10:54)
--- NOTE | 2019-05-05 11:13 | Progress Note ---
Assessment and Plan Renal indices worsening, diuretics held, nephrology following. Cont present supportive management. The patient has been seen in conjunction with Dr. Kolb who agrees with the assessment and plan of care. - Patient Problems (1) Acute respiratory failure Current Visit: Yes Status: Acute (2) Acute heart failure with preserved ejection fraction Current Visit: Yes Status: Acute (3) Acute kidney injury Current Visit: Yes Status: Acute (4) Anemia Current Visit: Yes Status: Acute (5) Morbid obesity Current Visit: Yes Status: Chronic (6) UTI (urinary tract infection) Current Visit: Yes Status: Acute (7) Fever Current Visit: Yes Status: Acute (8) Sepsis Current Visit: Yes Status: Suspected (9) Elevated troponin Current Visit: Yes Status: Acute (10) NSVT (nonsustained ventricular tachycardia) Current Visit: Yes Status: Acute (11) LANDON (obstructive sleep apnea) Current Visit: Yes Status: Suspected Subjective Date of service: 05/05/19 Principal diagnosis: HF; acute hypoxemic resp failure, SIRS, CARLA Interval history: pt remains intubated, agitated. in ST on tele. no family at bedside. Objective Last Vital Signs Temp 97.7 F 05/05/19 08:00 Pulse 83 05/05/19 10:56 Resp 16 05/05/19 08:50 BP 109/56 05/05/19 10:56 Pulse Ox 97 05/05/19 10:56 - Physical Examination General: Other (intubated, agitated) HEENT: Positive: PERRL Neck: Positive: trachea midline Cardiac: Positive: Regular Rhythm, S1/S2 Neuro: Positive: Other (intubated, agitated) Abdomen: Positive: Unremarkable Skin: Positive: Clear Musculoskeletal: Decreased Range of Motion Extremities: Present: normal - Labs and Meds Cardiac Enzymes 05/05/19 Range/Units 05:00 AST 93 H (5-40) units/L CBC 05/05/19 Range/Units 05:00 WBC 12.0 H (4.5-11.0) K/mm3 RBC 4.20 (3.65-5.03) M/mm3 Hgb 11.3 L (11.8-15.2) gm/dl Hct 37.3 (35.5-45.6) % Plt Count 212 (140-440) K/mm3 Lymph # 1.0 L (1.2-5.4) K/mm3 Piatt # 1.2 H (0.0-0.8) K/mm3 Eos # 0.1 (0.0-0.4) K/mm3 Baso # 0.1 (0.0-0.1) K/mm3 Comprehensive Metabolic Panel 05/05/19 Range/Units 05:00 Sodium 151 H (137-145) mmol/L Potassium 5.1 H (3.6-5.0) mmol/L Chloride 105.2 (98-107) mmol/L Carbon Dioxide 28 (22-30) mmol/L BUN 64 H (9-20) mg/dL Creatinine 3.5 H (0.8-1.5) mg/dL Glucose 117 H (75-100) mg/dL Calcium 7.5 L (8.4-10.2) mg/dL AST 93 H (5-40) units/L ALT 65 H (7-56) units/L Alkaline Phosphatase 70 (35-129) units/L Total Protein 6.9 (6.3-8.2) g/dL Albumin 2.9 L (3.9-5) g/dL - Imaging and Cardiology EKG: image reviewed Echo: report reviewed (TDS, EF 55-60%, mild LVH, mild TR, RVSP 40mmHg. ) - Telemetry EKG Rhythm: Sinus Tachycardia
--- NOTE | 2019-05-05 13:09 | Progress Note ---
Assessment and Plan Cultures: Blood cultures: no growth thus far Sputum culture: no growth thus far A/P: 34-year-old male with obesity admitted with: #Fever, SIRS: unclear if infectious. Patient was afebrile for the first 2 days of hospitalization, then he developed a fever of 101.2F. ?aspiration related. Apparently was using CPAP. #Acute hypoxic hypercapneic respiratory failure, possibly obesity hypo ventilation syndrome: on the vent. Pulmonary managing. #Morbid obesity #CARLA: creatinine elevated. dose abx accordingly. #Elevated LFTs: RUQ US showed fatty liver, small GB sludge. Improving. Recs: continue Ceftriaxone, Flagyl for now (Day 3 of 5) Burke Wilks MD, FACP [facility] ([facility] C: [phone] O: [phone] F: [phone] Subjective Date of service: 05/05/19 Principal diagnosis: HF; acute hypoxemic resp failure, SIRS, CARLA Interval history: Low grade temperatures. Remains intubated, sedated. Remains on high O2 requirements on the vent. Objective - Exam Narrative Exam: Physical Exam: Constitutional: sedated, intubated. Morbid obesity Head, Ears, Nose: Normocephalic, atraumatic. External ears, nose normal Eyes: Conjunctivae/corneas clear. No icterus. No ptosis. Neck: intubated Oral: intubated Cardiovascular: S1, S2 normal. Respiratory: Good air entry, clear to auscultation bilaterally GI: Soft, non-tender; bowel sounds normal. No peritoneal signs Musculoskeletal: No pedal edema, no cyanosis. Skin: No rash or abscess Hem/Lymphatic: No palpable cervical or supraclavicular nodes. No lymphangitis Psych: no agitation Neurological: sedated, intubated, on vent - Constitutional Vitals: Vital Signs Temp Pulse Resp BP Pulse Ox 97.8 F 110 H 18 120/66 80 L 05/05/19 12:00 05/05/19 12:05 05/05/19 12:00 05/05/19 12:00 05/05/19 12:00 Temperature -Last 24 Hours Temperature 97.8 F Temperature 97.8 F Temperature 97.7 F Temperature 100.3 F Temperature 100.2 F Temperature 99.6 F Temperature 100.1 F Temperature 100.1 F - Labs CBC & Chem 7: 05/05/19 05:00 05/05/19 05:00 Labs: Abnormal lab results 05/05/19 05/05/19 05/05/19 Range/Units 00:05 04:30 05:00 WBC (4.5-11.0) K/mm3 Hgb (11.8-15.2) gm/dl MCH (28-32) pg MCHC (32-34) % RDW (13.2-15.2) % Lymph % (Auto) (13.4-35.0) % Dickens % (Auto) (0.0-7.3) % Lymph # (1.2-5.4) K/mm3 Dickens # (0.0-0.8) K/mm3 Seg Neutrophils % (40.0-70.0) % Seg Neutrophils # (1.8-7.7) K/mm3 POC ABG pH 7.225 L (7.35-7.45) POC ABG pCO2 > 70 H (35-45) Sodium 151 H (137-145) mmol/L Potassium 5.1 H (3.6-5.0) mmol/L BUN 64 H (9-20) mg/dL Creatinine 3.5 H (0.8-1.5) mg/dL Glucose 117 H (75-100) mg/dL POC Glucose 141 H (70-105) Calcium 7.5 L (8.4-10.2) mg/dL AST 93 H (5-40) units/L ALT 65 H (7-56) units/L Albumin 2.9 L (3.9-5) g/dL 05/05/19 05/05/19 Range/Units 05:00 12:02 WBC 12.0 H (4.5-11.0) K/mm3 Hgb 11.3 L (11.8-15.2) gm/dl MCH 27 L (28-32) pg MCHC 30 L (32-34) % RDW 18.4 H (13.2-15.2) % Lymph % (Auto) 7.9 L (13.4-35.0) % Dickens % (Auto) 10.2 H (0.0-7.3) % Lymph # 1.0 L (1.2-5.4) K/mm3 Dickens # 1.2 H (0.0-0.8) K/mm3 Seg Neutrophils % 80.8 H (40.0-70.0) % Seg Neutrophils # 9.7 H (1.8-7.7) K/mm3 POC ABG pH (7.35-7.45) POC ABG pCO2 (35-45) Sodium (137-145) mmol/L Potassium (3.6-5.0) mmol/L BUN (9-20) mg/dL Creatinine (0.8-1.5) mg/dL Glucose (75-100) mg/dL POC Glucose 125 H (70-105) Calcium (8.4-10.2) mg/dL AST (5-40) units/L ALT (7-56) units/L Albumin (3.9-5) g/dL - Imaging and cardiology Chest x-ray: report reviewed, image reviewed (no significant interval change.)
[2019-05-05] MEDS: METOPROLOL TARTRATE 25 MG TAB PO SCH ×2 (14:03→21:48)
--- NOTE | 2019-05-05 16:45 | Progress Note ---
Assessment and Plan 34 y/o male with acute hypoxic, hypercapnic respiratory failure currently ventilated and sedated. 1. Wean FiO2 for sats >88% and PaO2 55 or greater. Permissive hypercapnea is ok as long as pH remains greater than 7.2. Attempted to drop FiO2 today but patient then dropped sats to 77 again. May need to increase PEEP if BP will tolerate it. 2. Renal function is worsening. Renal following. Holding diuretic therapy 3. Continue han for strict I/O 4. Likely will need trach but will aggressively try to wean. CCT 31 minutes. Subjective Date of service: 05/05/19 Principal diagnosis: HF; acute hypoxemic resp failure, SIRS, CARLA Interval history: No acute events. ABG this am better with PaO2 of 95. Permissive hypercapnea noted but rate increased by my partner. Objective Vital Signs - 12hr 05/05/19 05/05/19 05/05/19 04:40 04:50 05:00 Temperature Pulse Rate 100 H 103 H Pulse Rate [ From Monitor] Respiratory 14 16 Rate Blood Pressure 106/37 91/33 110/40 O2 Sat by Pulse 97 88 87 Oximetry 05/05/19 05/05/19 05/05/19 05:10 05:20 05:30 Temperature Pulse Rate 97 H 93 H 89 Pulse Rate [ From Monitor] Respiratory 22 22 22 Rate Blood Pressure 91/33 106/34 94/37 O2 Sat by Pulse 94 96 98 Oximetry 05/05/19 05/05/19 05/05/19 05:40 05:50 06:00 Temperature Pulse Rate 90 91 H 90 Pulse Rate [ From Monitor] Respiratory 22 21 26 H Rate Blood Pressure 94/37 94/38 101/52 O2 Sat by Pulse 98 99 99 Oximetry 05/05/19 05/05/19 05/05/19 06:10 06:20 06:30 Temperature Pulse Rate 86 86 84 Pulse Rate [ From Monitor] Respiratory 22 22 22 Rate Blood Pressure 101/52 99/49 97/47 O2 Sat by Pulse 99 99 99 Oximetry 05/05/19 05/05/19 05/05/19 06:40 06:50 07:00 Temperature Pulse Rate 89 94 H 119 H Pulse Rate [ From Monitor] Respiratory 19 22 13 Rate Blood Pressure 97/47 107/51 107/60 O2 Sat by Pulse 100 100 88 Oximetry 05/05/19 05/05/19 05/05/19 07:10 07:20 07:30 Temperature Pulse Rate 100 H 90 87 Pulse Rate [ From Monitor] Respiratory 19 22 22 Rate Blood Pressure 107/60 105/44 98/42 O2 Sat by Pulse 90 93 95 Oximetry 05/05/19 05/05/19 05/05/19 07:40 07:50 08:00 Temperature 97.7 F Pulse Rate 84 86 84 Pulse Rate [ 84 From Monitor] Respiratory 22 22 22 Rate Blood Pressure 102/46 104/45 101/44 O2 Sat by Pulse 96 96 96 Oximetry 05/05/19 05/05/19 05/05/19 08:10 08:20 08:30 Temperature Pulse Rate 80 100 H 105 H Pulse Rate [ From Monitor] Respiratory 22 15 19 Rate Blood Pressure 104/45 119/72 119/72 O2 Sat by Pulse 97 97 90 Oximetry 05/05/19 05/05/19 05/05/19 08:40 08:50 09:00 Temperature Pulse Rate 111 H 107 H 97 H Pulse Rate [ From Monitor] Respiratory 23 16 22 Rate Blood Pressure 118/56 123/53 108/44 O2 Sat by Pulse 82 L 87 89 Oximetry 05/05/19 05/05/19 05/05/19 09:10 09:20 09:30 Temperature Pulse Rate 118 H 117 H 102 H Pulse Rate [ From Monitor] Respiratory 15 23 23 Rate Blood Pressure 108/44 118/62 114/51 O2 Sat by Pulse 89 90 87 Oximetry 05/05/19 05/05/19 05/05/19 09:40 09:45 09:50 Temperature Pulse Rate 93 H 107 H 90 Pulse Rate [ From Monitor] Respiratory 22 22 Rate Blood Pressure 114/51 123/53 107/47 O2 Sat by Pulse 92 97 93 Oximetry 05/05/19 05/05/19 05/05/19 10:00 10:10 10:20 Temperature Pulse Rate 87 89 86 Pulse Rate [ From Monitor] Respiratory 19 23 22 Rate Blood Pressure 107/50 107/50 115/60 O2 Sat by Pulse 95 95 96 Oximetry 05/05/19 05/05/19 05/05/19 10:30 10:40 10:50 Temperature Pulse Rate 83 84 82 Pulse Rate [ From Monitor] Respiratory 23 22 22 Rate Blood Pressure 106/56 106/56 109/56 O2 Sat by Pulse 96 97 97 Oximetry 05/05/19 05/05/19 05/05/19 10:56 11:00 11:10 Temperature Pulse Rate 83 89 87 Pulse Rate [ From Monitor] Respiratory 22 22 Rate Blood Pressure 109/56 110/56 110/56 O2 Sat by Pulse 97 90 90 Oximetry 05/05/19 05/05/19 05/05/19 11:20 11:30 11:40 Temperature Pulse Rate 86 90 92 H Pulse Rate [ From Monitor] Respiratory 22 22 22 Rate Blood Pressure 108/56 112/57 112/57 O2 Sat by Pulse 91 92 92 Oximetry 05/05/19 05/05/19 05/05/19 11:50 12:00 12:05 Temperature 97.8 F Pulse Rate 116 H 120 H 110 H Pulse Rate [ 120 H From Monitor] Respiratory 22 18 Rate Blood Pressure 115/56 120/66 O2 Sat by Pulse 91 80 L Oximetry 05/05/19 05/05/19 05/05/19 12:10 12:20 12:30 Temperature Pulse Rate 102 H 93 H 93 H Pulse Rate [ From Monitor] Respiratory 22 22 22 Rate Blood Pressure 120/66 120/56 115/54 O2 Sat by Pulse 88 89 90 Oximetry 05/05/19 05/05/19 05/05/19 12:40 12:50 13:00 Temperature Pulse Rate 91 H 92 H 94 H Pulse Rate [ From Monitor] Respiratory 22 22 22 Rate Blood Pressure 115/54 112/50 117/52 O2 Sat by Pulse 92 94 94 Oximetry 05/05/19 05/05/19 05/05/19 13:10 13:15 13:20 Temperature Pulse Rate 92 H 117 H 90 Pulse Rate [ From Monitor] Respiratory 22 22 Rate Blood Pressure 117/52 128/63 118/55 O2 Sat by Pulse 95 82 L 95 Oximetry 05/05/19 05/05/19 05/05/19 13:30 13:40 13:50 Temperature Pulse Rate 92 H 106 H 117 H Pulse Rate [ From Monitor] Respiratory 21 22 23 Rate Blood Pressure 116/51 116/51 120/50 O2 Sat by Pulse 96 92 93 Oximetry 05/05/19 05/05/19 05/05/19 14:00 14:03 14:10 Temperature Pulse Rate 121 H 117 H 114 H Pulse Rate [ From Monitor] Respiratory 18 17 Rate Blood Pressure 128/63 128/63 128/63 O2 Sat by Pulse 89 89 Oximetry 1205/05/19 05/05/19 14:20 14:30 14:40 Temperature Pulse Rate 98 H 95 H 93 H Pulse Rate [ From Monitor] Respiratory 22 21 22 Rate Blood Pressure 128/59 133/50 133/50 O2 Sat by Pulse 93 95 96 Oximetry 05/05/19 05/05/19 05/05/19 14:50 15:00 15:10 Temperature Pulse Rate 93 H 93 H 94 H Pulse Rate [ From Monitor] Respiratory 22 22 22 Rate Blood Pressure 131/51 122/55 122/55 O2 Sat by Pulse 96 97 95 Oximetry 05/05/19 05/05/19 05/05/19 15:18 15:20 15:30 Temperature Pulse Rate 95 H 93 H 95 H Pulse Rate [ From Monitor] Respiratory 22 22 Rate Blood Pressure 126/54 126/54 121/56 O2 Sat by Pulse 95 95 96 Oximetry 05/05/19 05/05/19 05/05/19 15:40 15:50 16:00 Temperature Pulse Rate 100 H 96 H 96 H Pulse Rate [ 96 H From Monitor] Respiratory 22 22 23 Rate Blood Pressure 121/56 133/53 125/52 O2 Sat by Pulse 96 95 96 Oximetry Constitutional: other (morbidly obese male, sedated on vent) Eyes: non-icteric Neck: other (extremely large in circumference) Effort: normal Ascultation: Bilateral: diminished breath sounds (secondary to body habitus) CBC and BMP: 05/05/19 05:00 05/05/19 05:00 ABG, PT/INR, D-dimer: ABG POC ABG pH 7.225 (7.35-7.45) L 05/05/19 04:30 ABG pH 7.403 pH Units (7.350-7.450) 05/02/19 16:05 POC ABG pCO2 > 70 (35-45) H 05/05/19 04:30 ABG pCO2 52.3 mm Hg 05/02/19 16:05 POC ABG pO2 94 (80-105) 05/05/19 04:30 ABG pO2 66.6 mm Hg (80.0-90.0) L 05/02/19 16:05 POC ABG HCO3 36.8 (22-26 mml/L) 05/05/19 04:30 POC ABG Total CO2 39 (23-27mmol/L) 05/05/19 04:30 POC ABG O2 Sat 95 05/05/19 04:30 ABG O2 Saturation 92.5 % (95.0-99.0) L 05/02/19 16:05 PT/INR, D-dimer PT 15.4 Sec. (12.2-14.9) H 05/01/19 Unknown INR 1.23 (0.87-1.13) H 05/01/19 Unknown Abnormal lab findings: Abnormal Labs 05/01/19 05/01/19 05/01/19 17:50 19:26 22:36 WBC Hgb MCH MCHC RDW Lymph % (Auto) [place] % (Auto) Lymph # [place] # Seg Neutrophils % Seg Neutrophils # PT INR APTT POC ABG pH 7.272 L 7.331 L POC ABG pCO2 52.8 H POC ABG pO2 ABG pO2 ABG HCO3 ABG O2 Saturation ABG Base Excess ABG Hemoglobin Oxyhemoglobin Sodium 136 L Potassium 6.5 H* Chloride 97.2 L BUN 60 H Creatinine Glucose 113 H POC Glucose Calcium Phosphorus Magnesium 2.40 H AST 139 H ALT 154 H Total Creatine Kinase CK-MB (CK-2) Troponin T NT-Pro-B Natriuret Pep Albumin 3.8 L Triglycerides HDL Cholesterol Urine WBC (Auto) 05/01/19 05/01/19 05/01/19 Unknown Unknown Unknown WBC 16.1 H Hgb MCH MCHC RDW 17.2 H Lymph % (Auto) [place] % (Auto) 9.6 H Lymph # [place] # 1.5 H Seg Neutrophils % 73.0 H Seg Neutrophils # 11.7 H PT 15.4 H INR 1.23 H APTT 22.7 L POC ABG pH POC ABG pCO2 POC ABG pO2 ABG pO2 ABG HCO3 ABG O2 Saturation ABG Base Excess ABG Hemoglobin Oxyhemoglobin Sodium Potassium Chloride BUN Creatinine Glucose POC Glucose Calcium Phosphorus Magnesium AST ALT Total Creatine Kinase CK-MB (CK-2) Troponin T NT-Pro-B Natriuret Pep 6831 H Albumin Triglycerides HDL Cholesterol Urine WBC (Auto) 05/01/19 05/02/19 05/02/19 Unknown 00:06 00:06 WBC Hgb MCH MCHC RDW Lymph % (Auto) [place] % (Auto) Lymph # [place] # Seg Neutrophils % Seg Neutrophils # PT INR APTT POC ABG pH POC ABG pCO2 POC ABG pO2 ABG pO2 ABG HCO3 ABG O2 Saturation ABG Base Excess ABG Hemoglobin Oxyhemoglobin Sodium Potassium Chloride BUN Creatinine Glucose POC Glucose Calcium Phosphorus 4.90 H Magnesium AST ALT Total Creatine Kinase 226 H CK-MB (CK-2) 5.7 H Troponin T 0.044 H NT-Pro-B Natriuret Pep Albumin Triglycerides 182 H HDL Cholesterol 18 L Urine WBC (Auto) 05/02/19 05/02/19 05/02/19 02:08 04:40 04:41 WBC 17.6 H Hgb MCH 27 L MCHC RDW 17.4 H Lymph % (Auto) 10.2 L [place] % (Auto) 11.0 H Lymph # [place] # 1.9 H Seg Neutrophils % 78.0 H Seg Neutrophils # 13.8 H PT INR APTT POC ABG pH POC ABG pCO2 46.8 H POC ABG pO2 63 L ABG pO2 ABG HCO3 ABG O2 Saturation ABG Base Excess ABG Hemoglobin Oxyhemoglobin Sodium Potassium Chloride 96.3 L BUN 63 H Creatinine 1.7 H Glucose POC Glucose Calcium Phosphorus Magnesium AST ALT Total Creatine Kinase CK-MB (CK-2) Troponin T NT-Pro-B Natriuret Pep Albumin Triglycerides HDL Cholesterol Urine WBC (Auto) 05/02/19 05/02/19 05/02/19 04:41 04:41 16:05 WBC Hgb MCH MCHC RDW Lymph % (Auto) [place] % (Auto) Lymph # [place] # Seg Neutrophils % Seg Neutrophils # PT INR APTT POC ABG pH POC ABG pCO2 POC ABG pO2 ABG pO2 66.6 L ABG HCO3 31.9 H ABG O2 Saturation 92.5 L ABG Base Excess 5.8 H ABG Hemoglobin 13.3 L Oxyhemoglobin 90.6 L Sodium Potassium Chloride 97.2 L BUN 61 H Creatinine 1.8 H Glucose POC Glucose Calcium Phosphorus Magnesium AST ALT Total Creatine Kinase CK-MB (CK-2) 5.2 H Troponin T 0.067 H D NT-Pro-B Natriuret Pep Albumin Triglycerides HDL Cholesterol Urine WBC (Auto) 05/02/19 05/03/19 05/03/19 20:39 04:35 05:05 WBC 11.8 H Hgb MCH 27 L MCHC 31 L RDW 17.2 H Lymph % (Auto) [place] % (Auto) Lymph # [place] # Seg Neutrophils % Seg Neutrophils # PT INR APTT POC ABG pH POC ABG pCO2 53.6 H 54.0 H POC ABG pO2 55 L 63 L ABG pO2 ABG HCO3 ABG O2 Saturation ABG Base Excess ABG Hemoglobin Oxyhemoglobin Sodium Potassium Chloride BUN Creatinine Glucose POC Glucose Calcium Phosphorus Magnesium AST ALT Total Creatine Kinase CK-MB (CK-2) Troponin T NT-Pro-B Natriuret Pep Albumin Triglycerides HDL Cholesterol Urine WBC (Auto) 05/03/19 05/03/19 05/03/19 05:05 10:55 16:48 WBC Hgb MCH MCHC RDW Lymph % (Auto) [place] % (Auto) Lymph # [place] # Seg Neutrophils % Seg Neutrophils # PT INR APTT POC ABG pH 7.604 H POC ABG pCO2 POC ABG pO2 58 L ABG pO2 ABG HCO3 ABG O2 Saturation ABG Base Excess ABG Hemoglobin Oxyhemoglobin Sodium Potassium Chloride BUN 52 H Creatinine 1.9 H Glucose 103 H POC Glucose Calcium Phosphorus Magnesium AST ALT Total Creatine Kinase CK-MB (CK-2) Troponin T NT-Pro-B Natriuret Pep Albumin Triglycerides HDL Cholesterol Urine WBC (Auto) 33.0 H 05/04/19 05/04/19 05/04/19 04:49 06:50 06:50 WBC 16.0 H Hgb MCH 27 L MCHC 31 L RDW 17.8 H Lymph % (Auto) [place] % (Auto) Lymph # [place] # Seg Neutrophils % Seg Neutrophils # PT INR APTT POC ABG pH 7.273 L POC ABG pCO2 POC ABG pO2 ABG pO2 ABG HCO3 ABG O2 Saturation ABG Base Excess ABG Hemoglobin Oxyhemoglobin Sodium 148 H Potassium 5.5 H Chloride BUN 53 H Creatinine 3.3 H D Glucose 106 H POC Glucose Calcium 8.3 L Phosphorus Magnesium AST ALT Total Creatine Kinase CK-MB (CK-2) Troponin T NT-Pro-B Natriuret Pep Albumin Triglycerides HDL Cholesterol Urine WBC (Auto) 05/05/19 05/05/19 05/05/19 00:05 04:30 05:00 WBC Hgb MCH MCHC RDW Lymph % (Auto) [place] % (Auto) Lymph # [place] # Seg Neutrophils % Seg Neutrophils # PT INR APTT POC ABG pH 7.225 L POC ABG pCO2 > 70 H POC ABG pO2 ABG pO2 ABG HCO3 ABG O2 Saturation ABG Base Excess ABG Hemoglobin Oxyhemoglobin Sodium 151 H Potassium 5.1 H Chloride BUN 64 H Creatinine 3.5 H Glucose 117 H POC Glucose 141 H Calcium 7.5 L Phosphorus Magnesium AST 93 H ALT 65 H Total Creatine Kinase CK-MB (CK-2) Troponin T NT-Pro-B Natriuret Pep Albumin 2.9 L Triglycerides HDL Cholesterol Urine WBC (Auto) 05/05/19 05/05/19 05:00 12:02 WBC 12.0 H Hgb 11.3 L MCH 27 L MCHC 30 L RDW 18.4 H Lymph % (Auto) 7.9 L [place] % (Auto) 10.2 H Lymph # 1.0 L [place] # 1.2 H Seg Neutrophils % 80.8 H Seg Neutrophils # 9.7 H PT INR APTT POC ABG pH POC ABG pCO2 POC ABG pO2 ABG pO2 ABG HCO3 ABG O2 Saturation ABG Base Excess ABG Hemoglobin Oxyhemoglobin Sodium Potassium Chloride BUN Creatinine Glucose POC Glucose 125 H Calcium Phosphorus Magnesium AST ALT Total Creatine Kinase CK-MB (CK-2) Troponin T NT-Pro-B Natriuret Pep Albumin Triglycerides HDL Cholesterol Urine WBC (Auto)
[2019-05-05] MEDS: D5W/0.45% NACL 1,000 ML IV SCH (18:00)
[2019-05-05] MEDS: ACETAMINOPHEN 325 MG TAB PO PRN (21:49)
--- NOTE | 2019-05-06 02:38 | XRay Report ---
CHEST 1 VIEW 05/06/2019 2:09 AM INDICATION / CLINICAL INFORMATION: follow up respiratory failure. COMPARISON: One view of the chest from 05/05/2019. FINDINGS: SUPPORT DEVICES: Stable positioning. HEART / MEDIASTINUM: Stable. LUNGS / PLEURA: Aeration of the lungs has significantly improved. No significant pleural effusion. No pneumothorax. ADDITIONAL FINDINGS: No significant additional findings. IMPRESSION: Significantly improved aeration of the lungs. Signer Name: Mina Calloway MD Signed: 05/06/2019 2:34 AM Workstation Name: [id number]
[2019-05-06] MEDS: fentaNYL DRIP Premix 2,000 MCG/100 ML BAG IV SCH ×6 (03:11→22:19)
[2019-05-06] MEDS: D5W/0.45% NACL 1,000 ML IV SCH ×3 (03:12→22:12)
[2019-05-06 05:08] LABS: Hematocrit 34.2 % (35.5-45.6); Hemoglobin 10.7 gm/dl (11.8-15.2); Mean Corpuscular HGB Conc 31 % (32-34); Mean Corpuscular Volume 87 fl (84-94); Platelet Count 203 K/mm3 (140-440); Red Blood Count 3.93 M/mm3 (3.65-5.03); Red Cell Distribution Width 16.9 % (13.2-15.2)
[2019-05-06 05:22] LABS: Calcium 7.5 mg/dL (8.4-10.2)
[2019-05-06] MEDS: metroNIDAZOLE/NS 500 MG/100 ML 500 MG/100 ML BAG IV SCH ×3 (05:35→22:12)
[2019-05-06] MEDS: cefTRIAXone/NS 2 GM/100 ML 2 GM/100 ML BAG IV SCH (09:11)
[2019-05-06] MEDS: ACETAMINOPHEN 325 MG TAB PO PRN ×2 (09:12→13:00)
[2019-05-06] MEDS: ENOXAPARIN 30 MG/0.3 ML INJ SUB-Q SCH (09:12)
[2019-05-06] MEDS: FLUDROCORTISONE 0.1 MG TAB PO SCH (09:13)
[2019-05-06] MEDS: METOPROLOL TARTRATE 25 MG TAB PO SCH ×2 (09:13→22:12)
[2019-05-06] MEDS: FAMOTIDINE 20 MG TAB PO SCH (09:13)
[2019-05-06] MEDS: LORazepam 2 MG/ML VIAL IV PRN (09:48)
--- NOTE | 2019-05-06 10:02 | Progress Note ---
Assessment and Plan Cultures: Blood cultures: no growth thus far Sputum culture: no growth thus far A/P: 34-year-old male with obesity admitted with: #Fever, SIRS: Patient was afebrile for the first 2 days of hospitalization, then he developed a fever of 101.2F. ?aspiration related. Apparently was using CPAP. Now febrile again, ?UTI. UA showed pyuria, has indwelling Berkowitz. Urine culture was not sent. #Acute hypoxic hypercapneic respiratory failure, possibly obesity hypoventilation syndrome: on the vent. Pulmonary managing. #Morbid obesity #CARLA: creatinine elevated. dose abx accordingly. #Elevated LFTs: RUQ US showed fatty liver, small GB sludge. Improving. Recs: switched Ceftriaxone to Cefepime, renally adjusted continue Flagyl for now (Day 4 of 5) consider removing Berkowitz catheter Burke Wilks MD, FACP [facility] ([facility]) C: [phone] O: [phone] F: [phone] Subjective Date of service: 05/06/19 Principal diagnosis: HF; acute hypoxemic resp failure, SIRS, CARLA Interval history: Fevers +. Remains intubated, sedated with high PEEP and O2 requirements. Objective - Exam Narrative Exam: Physical Exam: Constitutional: sedated, intubated. Morbid obesity Head, Ears, Nose: Normocephalic, atraumatic. External ears, nose normal Eyes: Conjunctivae/corneas clear. No icterus. No ptosis. Neck: intubated Oral: intubated Cardiovascular: S1, S2 normal. Respiratory: Good air entry, clear to auscultation bilaterally GI: Soft, non-tender; bowel sounds normal. No peritoneal signs Musculoskeletal: No pedal edema, no cyanosis. Skin: No rash or abscess Hem/Lymphatic: No palpable cervical or supraclavicular nodes. No lymphangitis Psych: no agitation Neurological: sedated, intubated, on vent - Constitutional Vitals: Vital Signs Temp Pulse Resp BP Pulse Ox 101.9 F H 119 H 22 115/46 95 05/06/19 08:00 05/06/19 09:13 05/06/19 08:30 05/06/19 09:13 05/06/19 08:30 Temperature -Last 24 Hours Temperature 101.9 F Temperature 101.9 F Temperature 100.8 F Temperature 101.3 F Temperature 99.8 F Temperature 97.8 F Temperature 97.8 F - Labs CBC & Chem 7: 05/06/19 04:45 05/06/19 04:45 Labs: Abnormal lab results 05/05/19 05/05/19 05/05/19 Range/Units 12:02 17:46 23:42 WBC (4.5-11.0) K/mm3 Hgb (11.8-15.2) gm/dl Hct (35.5-45.6) % MCH (28-32) pg MCHC (32-34) % RDW (13.2-15.2) % POC ABG pCO2 (35-45) POC ABG pO2 (80-105) Sodium (137-145) mmol/L Carbon Dioxide (22-30) mmol/L BUN (9-20) mg/dL Creatinine (0.8-1.5) mg/dL Glucose (75-100) mg/dL POC Glucose 125 H 112 H 128 H (70-105) Calcium (8.4-10.2) mg/dL 05/06/19 05/06/19 05/06/19 Range/Units 03:58 04:45 04:45 WBC 11.4 H (4.5-11.0) K/mm3 Hgb 10.7 L (11.8-15.2) gm/dl Hct 34.2 L (35.5-45.6) % MCH 27 L (28-32) pg MCHC 31 L (32-34) % RDW 16.9 H (13.2-15.2) % POC ABG pCO2 62.4 H (35-45) POC ABG pO2 111 H (80-105) Sodium 149 H (137-145) mmol/L Carbon Dioxide 31 H (22-30) mmol/L BUN 67 H (9-20) mg/dL Creatinine 3.2 H (0.8-1.5) mg/dL Glucose 125 H (75-100) mg/dL POC Glucose (70-105) Calcium 7.5 L (8.4-10.2) mg/dL 05/06/19 Range/Units 05:33 WBC (4.5-11.0) K/mm3 Hgb (11.8-15.2) gm/dl Hct (35.5-45.6) % MCH (28-32) pg MCHC (32-34) % RDW (13.2-15.2) % POC ABG pCO2 (35-45) POC ABG pO2 (80-105) Sodium (137-145) mmol/L Carbon Dioxide (22-30) mmol/L BUN (9-20) mg/dL Creatinine (0.8-1.5) mg/dL Glucose (75-100) mg/dL POC Glucose 117 H (70-105) Calcium (8.4-10.2) mg/dL
--- NOTE | 2019-05-06 11:44 | Progress Note ---
Assessment and Plan Cont present supportive management. The patient has been seen in conjunction with Dr. Kolb who agrees with the assessment and plan of care. - Patient Problems (1) Acute respiratory failure Current Visit: Yes Status: Acute (2) Acute heart failure with preserved ejection fraction Current Visit: Yes Status: Acute (3) Acute kidney injury Current Visit: Yes Status: Acute (4) Anemia Current Visit: Yes Status: Acute (5) Morbid obesity Current Visit: Yes Status: Chronic (6) UTI (urinary tract infection) Current Visit: Yes Status: Acute (7) Fever Current Visit: Yes Status: Acute (8) Sepsis Current Visit: Yes Status: Suspected (9) Elevated troponin Current Visit: Yes Status: Acute (10) NSVT (nonsustained ventricular tachycardia) Current Visit: Yes Status: Acute (11) LANDON (obstructive sleep apnea) Current Visit: Yes Status: Suspected Subjective Date of service: 05/06/19 Principal diagnosis: HF; acute hypoxemic resp failure, SIRS, CARLA Interval history: pt remains intubated, sedated. in SR on tele. no family at bedside. Objective Last Vital Signs Temp 101.9 F H 05/06/19 08:00 Pulse 100 H 05/06/19 11:32 Resp 21 05/06/19 11:16 BP 133/44 05/06/19 11:32 Pulse Ox 91 05/06/19 11:32 - Physical Examination General: Other (intubated, sedated) HEENT: Positive: PERRL Neck: Positive: trachea midline Cardiac: Positive: Reg Rate and Rhythm, S1/S2 Lungs: Positive: Decreased Breath Sounds Neuro: Positive: Other (intubated, sedated) Abdomen: Positive: Unremarkable Skin: Positive: Clear Musculoskeletal: Decreased Range of Motion Extremities: Present: normal - Labs and Meds CBC 05/06/19 Range/Units 04:45 WBC 11.4 H (4.5-11.0) K/mm3 RBC 3.93 (3.65-5.03) M/mm3 Hgb 10.7 L (11.8-15.2) gm/dl Hct 34.2 L (35.5-45.6) % Plt Count 203 (140-440) K/mm3 Comprehensive Metabolic Panel 05/06/19 Range/Units 04:45 Sodium 149 H (137-145) mmol/L Potassium 4.0 D (3.6-5.0) mmol/L Chloride 106.5 (98-107) mmol/L Carbon Dioxide 31 H (22-30) mmol/L BUN 67 H (9-20) mg/dL Creatinine 3.2 H (0.8-1.5) mg/dL Glucose 125 H (75-100) mg/dL Calcium 7.5 L (8.4-10.2) mg/dL - Imaging and Cardiology EKG: image reviewed Echo: report reviewed (TDS, EF 55-60%, mild LVH, mild TR, RVSP 40mmHg. ) - Telemetry EKG Rhythm: Sinus Rhythm
--- NOTE | 2019-05-06 12:13 | Progress Note ---
Assessment and Plan 34 y/o male with acute hypoxic, hypercapnic respiratory failure currently ventilated and sedated. 1. Wean FiO2 for sats >88% and PaO2 55 or greater. Permissive hypercapnea is ok as long as pH remains greater than 7.2. Attempt to drop FiO2 today. May need to increase PEEP if BP will tolerate it. 2. Cr better today. Continue to hold diuretic. CXR is actually clear 3. Continue han for strict I/O 4. Likely will need trach but will aggressively try to wean. CCT 31 minutes. Subjective Date of service: 05/06/19 Principal diagnosis: HF; acute hypoxemic resp failure, SIRS, CARLA Interval history: remains hypoxic Objective Vital Signs - 12hr 05/06/19 05/06/19 05/06/19 00:15 00:25 00:30 Temperature Pulse Rate 86 85 86 Pulse Rate [ From Monitor] Respiratory 22 22 Rate Blood Pressure 103/40 100/43 103/44 O2 Sat by Pulse 98 98 98 Oximetry 05/06/19 05/06/19 05/06/19 00:45 01:00 01:15 Temperature Pulse Rate 86 85 87 Pulse Rate [ From Monitor] Respiratory 22 22 22 Rate Blood Pressure 103/43 102/38 101/39 O2 Sat by Pulse 98 98 98 Oximetry 05/06/19 05/06/19 05/06/19 01:30 01:45 02:00 Temperature Pulse Rate 87 88 97 H Pulse Rate [ From Monitor] Respiratory 22 22 22 Rate Blood Pressure 102/40 102/40 114/39 O2 Sat by Pulse 98 98 88 Oximetry 05/06/19 05/06/19 05/06/19 02:15 02:30 02:45 Temperature Pulse Rate 100 H 88 86 Pulse Rate [ From Monitor] Respiratory 21 22 22 Rate Blood Pressure 118/42 115/44 105/42 O2 Sat by Pulse 90 94 95 Oximetry 05/06/19 05/06/19 05/06/19 03:00 03:15 03:30 Temperature Pulse Rate 89 87 89 Pulse Rate [ From Monitor] Respiratory 22 22 22 Rate Blood Pressure 105/44 110/43 109/41 O2 Sat by Pulse 95 96 96 Oximetry 05/06/19 05/06/19 05/06/19 03:45 04:00 04:15 Temperature 101.9 F H Pulse Rate 92 H 105 H 89 Pulse Rate [ From Monitor] Respiratory 22 22 22 Rate Blood Pressure 112/51 125/62 116/42 O2 Sat by Pulse 96 90 95 Oximetry 05/06/19 05/06/19 05/06/19 04:26 04:30 04:45 Temperature Pulse Rate 92 H 90 89 Pulse Rate [ From Monitor] Respiratory 22 26 H Rate Blood Pressure 116/42 110/41 112/51 O2 Sat by Pulse 95 96 96 Oximetry 05/06/19 05/06/19 05/06/19 05:00 05:15 05:30 Temperature Pulse Rate 92 H 91 H 96 H Pulse Rate [ From Monitor] Respiratory 22 21 22 Rate Blood Pressure 116/45 119/47 123/53 O2 Sat by Pulse 96 96 94 Oximetry 05/06/19 05/06/19 05/06/19 05:45 06:00 06:15 Temperature Pulse Rate 92 H 98 H 102 H Pulse Rate [ From Monitor] Respiratory 22 22 21 Rate Blood Pressure 120/48 132/48 134/50 O2 Sat by Pulse 94 90 87 Oximetry 05/06/19 05/06/19 05/06/19 06:30 06:45 07:00 Temperature Pulse Rate 92 H 93 H 90 Pulse Rate [ From Monitor] Respiratory 22 22 22 Rate Blood Pressure 127/40 126/41 127/43 O2 Sat by Pulse 92 93 95 Oximetry 05/06/19 05/06/19 05/06/19 07:15 07:30 07:45 Temperature Pulse Rate 90 90 88 Pulse Rate [ From Monitor] Respiratory 22 22 22 Rate Blood Pressure 124/47 124/46 120/43 O2 Sat by Pulse 95 95 95 Oximetry 05/06/19 05/06/19 05/06/19 08:00 08:15 08:21 Temperature 101.9 F H Pulse Rate 89 88 93 H Pulse Rate [ 89 From Monitor] Respiratory 22 22 Rate Blood Pressure 120/47 117/49 117/49 O2 Sat by Pulse 96 95 96 Oximetry 05/06/19 05/06/19 05/06/19 08:30 08:45 09:00 Temperature Pulse Rate 89 91 H 90 Pulse Rate [ From Monitor] Respiratory 22 22 21 Rate Blood Pressure 116/51 122/45 115/46 O2 Sat by Pulse 95 95 96 Oximetry 05/06/19 05/06/19 05/06/19 09:13 09:15 09:30 Temperature Pulse Rate 119 H 115 H 112 H Pulse Rate [ From Monitor] Respiratory 21 18 Rate Blood Pressure 115/46 125/68 146/57 O2 Sat by Pulse 87 87 Oximetry 05/06/19 05/06/19 05/06/19 09:45 10:00 10:15 Temperature Pulse Rate 108 H 95 H 93 H Pulse Rate [ From Monitor] Respiratory 22 22 22 Rate Blood Pressure 133/51 128/36 128/38 O2 Sat by Pulse 85 93 95 Oximetry 05/06/19 05/06/19 05/06/19 10:30 10:45 11:00 Temperature Pulse Rate 96 H 96 H 110 H Pulse Rate [ From Monitor] Respiratory 21 22 21 Rate Blood Pressure 119/42 117/44 103/32 O2 Sat by Pulse 95 96 91 Oximetry 05/06/19 05/06/19 11:16 11:32 Temperature Pulse Rate 108 H 100 H Pulse Rate [ From Monitor] Respiratory 21 Rate Blood Pressure 132/51 133/44 O2 Sat by Pulse 88 91 Oximetry Constitutional: other (morbidly obese male, sedated on vent) Eyes: non-icteric Neck: other (extremely large in circumference) Effort: normal Ascultation: Bilateral: diminished breath sounds (secondary to body habitus) CBC and BMP: 05/06/19 04:45 05/06/19 04:45 ABG, PT/INR, D-dimer: ABG POC ABG pH 7.373 (7.35-7.45) 05/06/19 03:58 ABG pH 7.403 pH Units (7.350-7.450) 05/02/19 16:05 POC ABG pCO2 62.4 (35-45) H 05/06/19 03:58 ABG pCO2 52.3 mm Hg 05/02/19 16:05 POC ABG pO2 111 (80-105) H 05/06/19 03:58 ABG pO2 66.6 mm Hg (80.0-90.0) L 05/02/19 16:05 POC ABG HCO3 36.3 (22-26 mml/L) 05/06/19 03:58 POC ABG Total CO2 38 (23-27mmol/L) 05/06/19 03:58 POC ABG O2 Sat 98 05/06/19 03:58 ABG O2 Saturation 92.5 % (95.0-99.0) L 05/02/19 16:05 PT/INR, D-dimer PT 15.4 Sec. (12.2-14.9) H 05/01/19 Unknown INR 1.23 (0.87-1.13) H 05/01/19 Unknown Abnormal lab findings: Abnormal Labs 05/01/19 05/01/19 05/01/19 17:50 19:26 22:36 WBC Hgb Hct MCH MCHC RDW Lymph % (Auto) [place] % (Auto) Lymph # [place] # Seg Neutrophils % Seg Neutrophils # PT INR APTT POC ABG pH 7.272 L 7.331 L POC ABG pCO2 52.8 H POC ABG pO2 ABG pO2 ABG HCO3 ABG O2 Saturation ABG Base Excess ABG Hemoglobin Oxyhemoglobin Sodium 136 L Potassium 6.5 H* Chloride 97.2 L Carbon Dioxide BUN 60 H Creatinine Glucose 113 H POC Glucose Calcium Phosphorus Magnesium 2.40 H AST 139 H ALT 154 H Total Creatine Kinase CK-MB (CK-2) Troponin T NT-Pro-B Natriuret Pep Albumin 3.8 L Triglycerides HDL Cholesterol Urine WBC (Auto) 05/01/19 05/01/19 05/01/19 Unknown Unknown Unknown WBC 16.1 H Hgb Hct MCH MCHC RDW 17.2 H Lymph % (Auto) [place] % (Auto) 9.6 H Lymph # [place] # 1.5 H Seg Neutrophils % 73.0 H Seg Neutrophils # 11.7 H PT 15.4 H INR 1.23 H APTT 22.7 L POC ABG pH POC ABG pCO2 POC ABG pO2 ABG pO2 ABG HCO3 ABG O2 Saturation ABG Base Excess ABG Hemoglobin Oxyhemoglobin Sodium Potassium Chloride Carbon Dioxide BUN Creatinine Glucose POC Glucose Calcium Phosphorus Magnesium AST ALT Total Creatine Kinase CK-MB (CK-2) Troponin T NT-Pro-B Natriuret Pep 6831 H Albumin Triglycerides HDL Cholesterol Urine WBC (Auto) 05/01/19 05/02/19 05/02/19 Unknown 00:06 00:06 WBC Hgb Hct MCH MCHC RDW Lymph % (Auto) [place] % (Auto) Lymph # [place] # Seg Neutrophils % Seg Neutrophils # PT INR APTT POC ABG pH POC ABG pCO2 POC ABG pO2 ABG pO2 ABG HCO3 ABG O2 Saturation ABG Base Excess ABG Hemoglobin Oxyhemoglobin Sodium Potassium Chloride Carbon Dioxide BUN Creatinine Glucose POC Glucose Calcium Phosphorus 4.90 H Magnesium AST ALT Total Creatine Kinase 226 H CK-MB (CK-2) 5.7 H Troponin T 0.044 H NT-Pro-B Natriuret Pep Albumin Triglycerides 182 H HDL Cholesterol 18 L Urine WBC (Auto) 05/02/19 05/02/19 05/02/19 02:08 04:40 04:41 WBC 17.6 H Hgb Hct MCH 27 L MCHC RDW 17.4 H Lymph % (Auto) 10.2 L [place] % (Auto) 11.0 H Lymph # [place] # 1.9 H Seg Neutrophils % 78.0 H Seg Neutrophils # 13.8 H PT INR APTT POC ABG pH POC ABG pCO2 46.8 H POC ABG pO2 63 L ABG pO2 ABG HCO3 ABG O2 Saturation ABG Base Excess ABG Hemoglobin Oxyhemoglobin Sodium Potassium Chloride 96.3 L Carbon Dioxide BUN 63 H Creatinine 1.7 H Glucose POC Glucose Calcium Phosphorus Magnesium AST ALT Total Creatine Kinase CK-MB (CK-2) Troponin T NT-Pro-B Natriuret Pep Albumin Triglycerides HDL Cholesterol Urine WBC (Auto) 05/02/19 05/02/19 05/02/19 04:41 04:41 16:05 WBC Hgb Hct MCH MCHC RDW Lymph % (Auto) [place] % (Auto) Lymph # [place] # Seg Neutrophils % Seg Neutrophils # PT INR APTT POC ABG pH POC ABG pCO2 POC ABG pO2 ABG pO2 66.6 L ABG HCO3 31.9 H ABG O2 Saturation 92.5 L ABG Base Excess 5.8 H ABG Hemoglobin 13.3 L Oxyhemoglobin 90.6 L Sodium Potassium Chloride 97.2 L Carbon Dioxide BUN 61 H Creatinine 1.8 H Glucose POC Glucose Calcium Phosphorus Magnesium AST ALT Total Creatine Kinase CK-MB (CK-2) 5.2 H Troponin T 0.067 H D NT-Pro-B Natriuret Pep Albumin Triglycerides HDL Cholesterol Urine WBC (Auto) 05/02/19 05/03/19 05/03/19 20:39 04:35 05:05 WBC 11.8 H Hgb Hct MCH 27 L MCHC 31 L RDW 17.2 H Lymph % (Auto) [place] % (Auto) Lymph # [place] # Seg Neutrophils % Seg Neutrophils # PT INR APTT POC ABG pH POC ABG pCO2 53.6 H 54.0 H POC ABG pO2 55 L 63 L ABG pO2 ABG HCO3 ABG O2 Saturation ABG Base Excess ABG Hemoglobin Oxyhemoglobin Sodium Potassium Chloride Carbon Dioxide BUN Creatinine Glucose POC Glucose Calcium Phosphorus Magnesium AST ALT Total Creatine Kinase CK-MB (CK-2) Troponin T NT-Pro-B Natriuret Pep Albumin Triglycerides HDL Cholesterol Urine WBC (Auto) 05/03/19 05/03/19 05/03/19 05:05 10:55 16:48 WBC Hgb Hct MCH MCHC RDW Lymph % (Auto) [place] % (Auto) Lymph # [place] # Seg Neutrophils % Seg Neutrophils # PT INR APTT POC ABG pH 7.604 H POC ABG pCO2 POC ABG pO2 58 L ABG pO2 ABG HCO3 ABG O2 Saturation ABG Base Excess ABG Hemoglobin Oxyhemoglobin Sodium Potassium Chloride Carbon Dioxide BUN 52 H Creatinine 1.9 H Glucose 103 H POC Glucose Calcium Phosphorus Magnesium AST ALT Total Creatine Kinase CK-MB (CK-2) Troponin T NT-Pro-B Natriuret Pep Albumin Triglycerides HDL Cholesterol Urine WBC (Auto) 33.0 H 05/04/19 05/04/19 05/04/19 04:49 06:50 06:50 WBC 16.0 H Hgb Hct MCH 27 L MCHC 31 L RDW 17.8 H Lymph % (Auto) [place] % (Auto) Lymph # [place] # Seg Neutrophils % Seg Neutrophils # PT INR APTT POC ABG pH 7.273 L POC ABG pCO2 POC ABG pO2 ABG pO2 ABG HCO3 ABG O2 Saturation ABG Base Excess ABG Hemoglobin Oxyhemoglobin Sodium 148 H Potassium 5.5 H Chloride Carbon Dioxide BUN 53 H Creatinine 3.3 H D Glucose 106 H POC Glucose Calcium 8.3 L Phosphorus Magnesium AST ALT Total Creatine Kinase CK-MB (CK-2) Troponin T NT-Pro-B Natriuret Pep Albumin Triglycerides HDL Cholesterol Urine WBC (Auto) 05/05/19 05/05/19 05/05/19 00:05 04:30 05:00 WBC Hgb Hct MCH MCHC RDW Lymph % (Auto) [place] % (Auto) Lymph # [place] # Seg Neutrophils % Seg Neutrophils # PT INR APTT POC ABG pH 7.225 L POC ABG pCO2 > 70 H POC ABG pO2 ABG pO2 ABG HCO3 ABG O2 Saturation ABG Base Excess ABG Hemoglobin Oxyhemoglobin Sodium 151 H Potassium 5.1 H Chloride Carbon Dioxide BUN 64 H Creatinine 3.5 H Glucose 117 H POC Glucose 141 H Calcium 7.5 L Phosphorus Magnesium AST 93 H ALT 65 H Total Creatine Kinase CK-MB (CK-2) Troponin T NT-Pro-B Natriuret Pep Albumin 2.9 L Triglycerides HDL Cholesterol Urine WBC (Auto) 05/05/19 05/05/19 05/05/19 05:00 12:02 17:46 WBC 12.0 H Hgb 11.3 L Hct MCH 27 L MCHC 30 L RDW 18.4 H Lymph % (Auto) 7.9 L [place] % (Auto) 10.2 H Lymph # 1.0 L [place] # 1.2 H Seg Neutrophils % 80.8 H Seg Neutrophils # 9.7 H PT INR APTT POC ABG pH POC ABG pCO2 POC ABG pO2 ABG pO2 ABG HCO3 ABG O2 Saturation ABG Base Excess ABG Hemoglobin Oxyhemoglobin Sodium Potassium Chloride Carbon Dioxide BUN Creatinine Glucose POC Glucose 125 H 112 H Calcium Phosphorus Magnesium AST ALT Total Creatine Kinase CK-MB (CK-2) Troponin T NT-Pro-B Natriuret Pep Albumin Triglycerides HDL Cholesterol Urine WBC (Auto) 05/05/19 05/06/19 05/06/19 23:42 03:58 04:45 WBC 11.4 H Hgb 10.7 L Hct 34.2 L MCH 27 L MCHC 31 L RDW 16.9 H Lymph % (Auto) [place] % (Auto) Lymph # [place] # Seg Neutrophils % Seg Neutrophils # PT INR APTT POC ABG pH POC ABG pCO2 62.4 H POC ABG pO2 111 H ABG pO2 ABG HCO3 ABG O2 Saturation ABG Base Excess ABG Hemoglobin Oxyhemoglobin Sodium Potassium Chloride Carbon Dioxide BUN Creatinine Glucose POC Glucose 128 H Calcium Phosphorus Magnesium AST ALT Total Creatine Kinase CK-MB (CK-2) Troponin T NT-Pro-B Natriuret Pep Albumin Triglycerides HDL Cholesterol Urine WBC (Auto) 05/06/19 05/06/19 04:45 05:33 WBC Hgb Hct MCH MCHC RDW Lymph % (Auto) [place] % (Auto) Lymph # [place] # Seg Neutrophils % Seg Neutrophils # PT INR APTT POC ABG pH POC ABG pCO2 POC ABG pO2 ABG pO2 ABG HCO3 ABG O2 Saturation ABG Base Excess ABG Hemoglobin Oxyhemoglobin Sodium 149 H Potassium Chloride Carbon Dioxide 31 H BUN 67 H Creatinine 3.2 H Glucose 125 H POC Glucose 117 H Calcium 7.5 L Phosphorus Magnesium AST ALT Total Creatine Kinase CK-MB (CK-2) Troponin T NT-Pro-B Natriuret Pep Albumin Triglycerides HDL Cholesterol Urine WBC (Auto)
[2019-05-06] MEDS: CEFEPIME/NS 2 GM/100 ML 2 GM/100 ML BAG IV SCH (12:51)
--- NOTE | 2019-05-06 13:37 | Progress Note ---
Subjective Date of service: 05/06/19 Principal diagnosis: HF; acute hypoxemic resp failure, SIRS, CARLA Interval history: patient seen and very poorly resonsive doubt we can get MRI or CT based on w eight exceeds the table acapacity nothing focal to exam he is comatose but no active seizure Objective - Vital Sign Vital Signs - 12hr 05/06/19 05/06/19 05/06/19 01:45 02:00 02:15 Temperature Pulse Rate 88 97 H 100 H Pulse Rate [ From Monitor] Respiratory 22 22 21 Rate Blood Pressure 102/40 114/39 118/42 O2 Sat by Pulse 98 88 90 Oximetry 05/06/19 05/06/19 05/06/19 02:30 02:45 03:00 Temperature Pulse Rate 88 86 89 Pulse Rate [ From Monitor] Respiratory 22 22 22 Rate Blood Pressure 115/44 105/42 105/44 O2 Sat by Pulse 94 95 95 Oximetry 05/06/19 05/06/19 05/06/19 03:15 03:30 03:45 Temperature Pulse Rate 87 89 92 H Pulse Rate [ From Monitor] Respiratory 22 22 22 Rate Blood Pressure 110/43 109/41 112/51 O2 Sat by Pulse 96 96 96 Oximetry 05/06/19 05/06/19 05/06/19 04:00 04:15 04:26 Temperature 101.9 F H Pulse Rate 105 H 89 92 H Pulse Rate [ From Monitor] Respiratory 22 22 Rate Blood Pressure 125/62 116/42 116/42 O2 Sat by Pulse 90 95 95 Oximetry 05/06/19 05/06/19 05/06/19 04:30 04:45 05:00 Temperature Pulse Rate 90 89 92 H Pulse Rate [ From Monitor] Respiratory 22 26 H 22 Rate Blood Pressure 110/41 112/51 116/45 O2 Sat by Pulse 96 96 96 Oximetry 05/06/19 05/06/19 05/06/19 05:15 05:30 05:45 Temperature Pulse Rate 91 H 96 H 92 H Pulse Rate [ From Monitor] Respiratory 21 22 22 Rate Blood Pressure 119/47 123/53 120/48 O2 Sat by Pulse 96 94 94 Oximetry 05/06/19 05/06/19 05/06/19 06:00 06:15 06:30 Temperature Pulse Rate 98 H 102 H 92 H Pulse Rate [ From Monitor] Respiratory 22 21 22 Rate Blood Pressure 132/48 134/50 127/40 O2 Sat by Pulse 90 87 92 Oximetry 05/06/19 05/06/19 05/06/19 06:45 07:00 07:15 Temperature Pulse Rate 93 H 90 90 Pulse Rate [ From Monitor] Respiratory 22 22 22 Rate Blood Pressure 126/41 127/43 124/47 O2 Sat by Pulse 93 95 95 Oximetry 05/06/19 05/06/19 05/06/19 07:30 07:45 08:00 Temperature 101.9 F H Pulse Rate 90 88 89 Pulse Rate [ 89 From Monitor] Respiratory 22 22 22 Rate Blood Pressure 124/46 120/43 120/47 O2 Sat by Pulse 95 95 96 Oximetry 05/06/19 05/06/19 05/06/19 08:15 08:21 08:30 Temperature Pulse Rate 88 93 H 89 Pulse Rate [ From Monitor] Respiratory 22 22 Rate Blood Pressure 117/49 117/49 116/51 O2 Sat by Pulse 95 96 95 Oximetry 05/06/19 05/06/19 05/06/19 08:45 09:00 09:13 Temperature Pulse Rate 91 H 90 119 H Pulse Rate [ From Monitor] Respiratory 22 21 Rate Blood Pressure 122/45 115/46 115/46 O2 Sat by Pulse 95 96 Oximetry 05/06/19 05/06/19 05/06/19 09:15 09:30 09:45 Temperature Pulse Rate 115 H 112 H 108 H Pulse Rate [ From Monitor] Respiratory 21 18 22 Rate Blood Pressure 125/68 146/57 133/51 O2 Sat by Pulse 87 87 85 Oximetry 05/06/19 05/06/19 05/06/19 10:00 10:15 10:30 Temperature Pulse Rate 95 H 93 H 96 H Pulse Rate [ From Monitor] Respiratory 22 22 21 Rate Blood Pressure 128/36 128/38 119/42 O2 Sat by Pulse 93 95 95 Oximetry 05/06/19 05/06/19 05/06/19 10:45 11:00 11:16 Temperature Pulse Rate 96 H 110 H 108 H Pulse Rate [ From Monitor] Respiratory 22 21 21 Rate Blood Pressure 117/44 103/32 132/51 O2 Sat by Pulse 96 91 88 Oximetry 05/06/19 05/06/19 05/06/19 11:30 11:32 11:46 Temperature Pulse Rate 101 H 100 H 126 H Pulse Rate [ From Monitor] Respiratory 22 20 Rate Blood Pressure 133/44 133/44 145/56 O2 Sat by Pulse 90 91 84 Oximetry 05/06/19 12:00 Temperature 102.5 F H Pulse Rate 120 H Pulse Rate [ 114 H From Monitor] Respiratory 22 Rate Blood Pressure 144/53 O2 Sat by Pulse 86 Oximetry - Laboratory Findings CBC and BMP: 05/06/19 04:45 05/06/19 04:45 Abnormal Lab Findings: Abnormal Labs 05/01/19 05/01/19 05/01/19 17:50 19:26 22:36 WBC Hgb Hct MCH MCHC RDW Lymph % (Auto) [place] % (Auto) Lymph # [place] # Seg Neutrophils % Seg Neutrophils # PT INR APTT POC ABG pH 7.272 L 7.331 L POC ABG pCO2 52.8 H POC ABG pO2 ABG pO2 ABG HCO3 ABG O2 Saturation ABG Base Excess ABG Hemoglobin Oxyhemoglobin Sodium 136 L Potassium 6.5 H* Chloride 97.2 L Carbon Dioxide BUN 60 H Creatinine Glucose 113 H POC Glucose Calcium Phosphorus Magnesium 2.40 H AST 139 H ALT 154 H Total Creatine Kinase CK-MB (CK-2) Troponin T NT-Pro-B Natriuret Pep Albumin 3.8 L Triglycerides HDL Cholesterol Urine WBC (Auto) 05/01/19 05/01/19 05/01/19 Unknown Unknown Unknown WBC 16.1 H Hgb Hct MCH MCHC RDW 17.2 H Lymph % (Auto) [place] % (Auto) 9.6 H Lymph # [place] # 1.5 H Seg Neutrophils % 73.0 H Seg Neutrophils # 11.7 H PT 15.4 H INR 1.23 H APTT 22.7 L POC ABG pH POC ABG pCO2 POC ABG pO2 ABG pO2 ABG HCO3 ABG O2 Saturation ABG Base Excess ABG Hemoglobin Oxyhemoglobin Sodium Potassium Chloride Carbon Dioxide BUN Creatinine Glucose POC Glucose Calcium Phosphorus Magnesium AST ALT Total Creatine Kinase CK-MB (CK-2) Troponin T NT-Pro-B Natriuret Pep 6831 H Albumin Triglycerides HDL Cholesterol Urine WBC (Auto) 05/01/19 05/02/19 05/02/19 Unknown 00:06 00:06 WBC Hgb Hct MCH MCHC RDW Lymph % (Auto) [place] % (Auto) Lymph # [place] # Seg Neutrophils % Seg Neutrophils # PT INR APTT POC ABG pH POC ABG pCO2 POC ABG pO2 ABG pO2 ABG HCO3 ABG O2 Saturation ABG Base Excess ABG Hemoglobin Oxyhemoglobin Sodium Potassium Chloride Carbon Dioxide BUN Creatinine Glucose POC Glucose Calcium Phosphorus 4.90 H Magnesium AST ALT Total Creatine Kinase 226 H CK-MB (CK-2) 5.7 H Troponin T 0.044 H NT-Pro-B Natriuret Pep Albumin Triglycerides 182 H HDL Cholesterol 18 L Urine WBC (Auto) 05/02/19 05/02/19 05/02/19 02:08 04:40 04:41 WBC 17.6 H Hgb Hct MCH 27 L MCHC RDW 17.4 H Lymph % (Auto) 10.2 L [place] % (Auto) 11.0 H Lymph # [place] # 1.9 H Seg Neutrophils % 78.0 H Seg Neutrophils # 13.8 H PT INR APTT POC ABG pH POC ABG pCO2 46.8 H POC ABG pO2 63 L ABG pO2 ABG HCO3 ABG O2 Saturation ABG Base Excess ABG Hemoglobin Oxyhemoglobin Sodium Potassium Chloride 96.3 L Carbon Dioxide BUN 63 H Creatinine 1.7 H Glucose POC Glucose Calcium Phosphorus Magnesium AST ALT Total Creatine Kinase CK-MB (CK-2) Troponin T NT-Pro-B Natriuret Pep Albumin Triglycerides HDL Cholesterol Urine WBC (Auto) 05/02/19 05/02/19 05/02/19 04:41 04:41 16:05 WBC Hgb Hct MCH MCHC RDW Lymph % (Auto) [place] % (Auto) Lymph # [place] # Seg Neutrophils % Seg Neutrophils # PT INR APTT POC ABG pH POC ABG pCO2 POC ABG pO2 ABG pO2 66.6 L ABG HCO3 31.9 H ABG O2 Saturation 92.5 L ABG Base Excess 5.8 H ABG Hemoglobin 13.3 L Oxyhemoglobin 90.6 L Sodium Potassium Chloride 97.2 L Carbon Dioxide BUN 61 H Creatinine 1.8 H Glucose POC Glucose Calcium Phosphorus Magnesium AST ALT Total Creatine Kinase CK-MB (CK-2) 5.2 H Troponin T 0.067 H D NT-Pro-B Natriuret Pep Albumin Triglycerides HDL Cholesterol Urine WBC (Auto) 05/02/19 05/03/19 05/03/19 20:39 04:35 05:05 WBC 11.8 H Hgb Hct MCH 27 L MCHC 31 L RDW 17.2 H Lymph % (Auto) [place] % (Auto) Lymph # [place] # Seg Neutrophils % Seg Neutrophils # PT INR APTT POC ABG pH POC ABG pCO2 53.6 H 54.0 H POC ABG pO2 55 L 63 L ABG pO2 ABG HCO3 ABG O2 Saturation ABG Base Excess ABG Hemoglobin Oxyhemoglobin Sodium Potassium Chloride Carbon Dioxide BUN Creatinine Glucose POC Glucose Calcium Phosphorus Magnesium AST ALT Total Creatine Kinase CK-MB (CK-2) Troponin T NT-Pro-B Natriuret Pep Albumin Triglycerides HDL Cholesterol Urine WBC (Auto) 05/03/19 05/03/19 05/03/19 05:05 10:55 16:48 WBC Hgb Hct MCH MCHC RDW Lymph % (Auto) [place] % (Auto) Lymph # [place] # Seg Neutrophils % Seg Neutrophils # PT INR APTT POC ABG pH 7.604 H POC ABG pCO2 POC ABG pO2 58 L ABG pO2 ABG HCO3 ABG O2 Saturation ABG Base Excess ABG Hemoglobin Oxyhemoglobin Sodium Potassium Chloride Carbon Dioxide BUN 52 H Creatinine 1.9 H Glucose 103 H POC Glucose Calcium Phosphorus Magnesium AST ALT Total Creatine Kinase CK-MB (CK-2) Troponin T NT-Pro-B Natriuret Pep Albumin Triglycerides HDL Cholesterol Urine WBC (Auto) 33.0 H 05/04/19 05/04/19 05/04/19 04:49 06:50 06:50 WBC 16.0 H Hgb Hct MCH 27 L MCHC 31 L RDW 17.8 H Lymph % (Auto) [place] % (Auto) Lymph # [place] # Seg Neutrophils % Seg Neutrophils # PT INR APTT POC ABG pH 7.273 L POC ABG pCO2 POC ABG pO2 ABG pO2 ABG HCO3 ABG O2 Saturation ABG Base Excess ABG Hemoglobin Oxyhemoglobin Sodium 148 H Potassium 5.5 H Chloride Carbon Dioxide BUN 53 H Creatinine 3.3 H D Glucose 106 H POC Glucose Calcium 8.3 L Phosphorus Magnesium AST ALT Total Creatine Kinase CK-MB (CK-2) Troponin T NT-Pro-B Natriuret Pep Albumin Triglycerides HDL Cholesterol Urine WBC (Auto) 05/05/19 05/05/19 05/05/19 00:05 04:30 05:00 WBC Hgb Hct MCH MCHC RDW Lymph % (Auto) [place] % (Auto) Lymph # [place] # Seg Neutrophils % Seg Neutrophils # PT INR APTT POC ABG pH 7.225 L POC ABG pCO2 > 70 H POC ABG pO2 ABG pO2 ABG HCO3 ABG O2 Saturation ABG Base Excess ABG Hemoglobin Oxyhemoglobin Sodium 151 H Potassium 5.1 H Chloride Carbon Dioxide BUN 64 H Creatinine 3.5 H Glucose 117 H POC Glucose 141 H Calcium 7.5 L Phosphorus Magnesium AST 93 H ALT 65 H Total Creatine Kinase CK-MB (CK-2) Troponin T NT-Pro-B Natriuret Pep Albumin 2.9 L Triglycerides HDL Cholesterol Urine WBC (Auto) 05/05/19 05/05/19 05/05/19 05:00 12:02 17:46 WBC 12.0 H Hgb 11.3 L Hct MCH 27 L MCHC 30 L RDW 18.4 H Lymph % (Auto) 7.9 L [place] % (Auto) 10.2 H Lymph # 1.0 L [place] # 1.2 H Seg Neutrophils % 80.8 H Seg Neutrophils # 9.7 H PT INR APTT POC ABG pH POC ABG pCO2 POC ABG pO2 ABG pO2 ABG HCO3 ABG O2 Saturation ABG Base Excess ABG Hemoglobin Oxyhemoglobin Sodium Potassium Chloride Carbon Dioxide BUN Creatinine Glucose POC Glucose 125 H 112 H Calcium Phosphorus Magnesium AST ALT Total Creatine Kinase CK-MB (CK-2) Troponin T NT-Pro-B Natriuret Pep Albumin Triglycerides HDL Cholesterol Urine WBC (Auto) 05/05/19 05/06/19 05/06/19 23:42 03:58 04:45 WBC 11.4 H Hgb 10.7 L Hct 34.2 L MCH 27 L MCHC 31 L RDW 16.9 H Lymph % (Auto) [place] % (Auto) Lymph # [place] # Seg Neutrophils % Seg Neutrophils # PT INR APTT POC ABG pH POC ABG pCO2 62.4 H POC ABG pO2 111 H ABG pO2 ABG HCO3 ABG O2 Saturation ABG Base Excess ABG Hemoglobin Oxyhemoglobin Sodium Potassium Chloride Carbon Dioxide BUN Creatinine Glucose POC Glucose 128 H Calcium Phosphorus Magnesium AST ALT Total Creatine Kinase CK-MB (CK-2) Troponin T NT-Pro-B Natriuret Pep Albumin Triglycerides HDL Cholesterol Urine WBC (Auto) 05/06/19 05/06/19 05/06/19 04:45 05:33 12:30 WBC Hgb Hct MCH MCHC RDW Lymph % (Auto) Dukes % (Auto) Lymph # Dukes # Seg Neutrophils % Seg Neutrophils # PT INR APTT POC ABG pH POC ABG pCO2 POC ABG pO2 ABG pO2 ABG HCO3 ABG O2 Saturation ABG Base Excess ABG Hemoglobin Oxyhemoglobin Sodium 149 H Potassium Chloride Carbon Dioxide 31 H BUN 67 H Creatinine 3.2 H Glucose 125 H POC Glucose 117 H 116 H Calcium 7.5 L Phosphorus Magnesium AST ALT Total Creatine Kinase CK-MB (CK-2) Troponin T NT-Pro-B Natriuret Pep Albumin Triglycerides HDL Cholesterol Urine WBC (Auto)
--- NOTE | 2019-05-06 14:21 | Progress Note ---
Assessment and Plan - Patient Problems (1) Acute kidney injury Current Visit: Yes Status: Acute Plan to address problem: Acute kidney injury worsening Baseline creatinine unknown Kidney function is worsening Chest x-ray with concern for Bibasilar haziness? Atelectasis Renal function worsened with diuresis ? Volume depletion Received bolus of saline received saline infusion at 125cc/hr creatinine improved from 3.5 to 3.2mg/dl currently on half normal saline due to worsening hypernatremia with CARLA Repeat BMP (2) Hypercapnic respiratory failure Current Visit: Yes Status: Acute Qualifiers: Chronicity: acute on chronic Qualified Code(s): J96.22 - Acute and chronic respiratory failure with hypercapnia Plan to address problem: Acute on chronic respiratory failure with hypercapnia Patient is currently intubated FiO2 90% chest x-ray with some concern for bibasilar haziness Given morbid obesity. Obesity hypoventilation Wean oxygen as tolerated (3) Anemia Current Visit: Yes Status: Acute Plan to address problem: Mild anemia Monitor CBC (4) Fever Current Visit: Yes Status: Acute Plan to address problem: Fever workup for infectious causes Infectious disease is following (5) Hyperkalemia Current Visit: Yes Status: Acute Plan to address problem: hyperkalemia ;resolved. Secondary to acute kidney injury received Kayexalate also on Florinef (6) Hypernatremia Current Visit: Yes Status: Acute Plan to address problem: Hypernatremia iatrogenic Secondary to saline infusions received D5 water bolus currently on half normal saline. Subjective Principal diagnosis: HF; acute hypoxemic resp failure, SIRS, CARLA Interval history: 34-year-old gentleman with morbid obesity, found with cyanosis difficulty with breathing and brought to the emergency room he required intubation review of systems unobtainable patient remains intubated and FiO2 100% he has had worsening renal function nephrology consulted for this. He was subsequently fo und to have a fever infectious diseases is following Patient seen to be remains intubated and sedated FiO2 90% febrile today ,agree with removing Berkowitz Has upper extremity edema Objective - Vital Signs Vital signs: Vital Signs - 12hr 05/06/19 05/06/19 05/06/19 02:30 02:45 03:00 Temperature Pulse Rate 88 86 89 Pulse Rate [ From Monitor] Respiratory 22 22 22 Rate Blood Pressure 115/44 105/42 105/44 O2 Sat by Pulse 94 95 95 Oximetry 05/06/19 05/06/19 05/06/19 03:15 03:30 03:45 Temperature Pulse Rate 87 89 92 H Pulse Rate [ From Monitor] Respiratory 22 22 22 Rate Blood Pressure 110/43 109/41 112/51 O2 Sat by Pulse 96 96 96 Oximetry 05/06/19 05/06/19 05/06/19 04:00 04:15 04:26 Temperature 101.9 F H Pulse Rate 105 H 89 92 H Pulse Rate [ From Monitor] Respiratory 22 22 Rate Blood Pressure 125/62 116/42 116/42 O2 Sat by Pulse 90 95 95 Oximetry 05/06/19 05/06/19 05/06/19 04:30 04:45 05:00 Temperature Pulse Rate 90 89 92 H Pulse Rate [ From Monitor] Respiratory 22 26 H 22 Rate Blood Pressure 110/41 112/51 116/45 O2 Sat by Pulse 96 96 96 Oximetry 05/06/19 05/06/19 05/06/19 05:15 05:30 05:45 Temperature Pulse Rate 91 H 96 H 92 H Pulse Rate [ From Monitor] Respiratory 21 22 22 Rate Blood Pressure 119/47 123/53 120/48 O2 Sat by Pulse 96 94 94 Oximetry 05/06/19 05/06/19 05/06/19 06:00 06:15 06:30 Temperature Pulse Rate 98 H 102 H 92 H Pulse Rate [ From Monitor] Respiratory 22 21 22 Rate Blood Pressure 132/48 134/50 127/40 O2 Sat by Pulse 90 87 92 Oximetry 05/06/19 05/06/19 05/06/19 06:45 07:00 07:15 Temperature Pulse Rate 93 H 90 90 Pulse Rate [ From Monitor] Respiratory 22 22 22 Rate Blood Pressure 126/41 127/43 124/47 O2 Sat by Pulse 93 95 95 Oximetry 05/06/19 05/06/19 05/06/19 07:30 07:45 08:00 Temperature 101.9 F H Pulse Rate 90 88 89 Pulse Rate [ 89 From Monitor] Respiratory 22 22 22 Rate Blood Pressure 124/46 120/43 120/47 O2 Sat by Pulse 95 95 96 Oximetry 05/06/19 05/06/19 05/06/19 08:15 08:21 08:30 Temperature Pulse Rate 88 93 H 89 Pulse Rate [ From Monitor] Respiratory 22 22 Rate Blood Pressure 117/49 117/49 116/51 O2 Sat by Pulse 95 96 95 Oximetry 05/06/19 05/06/19 05/06/19 08:45 09:00 09:13 Temperature Pulse Rate 91 H 90 119 H Pulse Rate [ From Monitor] Respiratory 22 21 Rate Blood Pressure 122/45 115/46 115/46 O2 Sat by Pulse 95 96 Oximetry 05/06/19 05/06/19 05/06/19 09:15 09:30 09:45 Temperature Pulse Rate 115 H 112 H 108 H Pulse Rate [ From Monitor] Respiratory 21 18 22 Rate Blood Pressure 125/68 146/57 133/51 O2 Sat by Pulse 87 87 85 Oximetry 05/06/19 05/06/19 05/06/19 10:00 10:15 10:30 Temperature Pulse Rate 95 H 93 H 96 H Pulse Rate [ From Monitor] Respiratory 22 22 21 Rate Blood Pressure 128/36 128/38 119/42 O2 Sat by Pulse 93 95 95 Oximetry 05/06/19 05/06/19 05/06/19 10:45 11:00 11:16 Temperature Pulse Rate 96 H 110 H 108 H Pulse Rate [ From Monitor] Respiratory 22 21 21 Rate Blood Pressure 117/44 103/32 132/51 O2 Sat by Pulse 96 91 88 Oximetry 05/06/19 05/06/19 05/06/19 11:30 11:32 11:46 Temperature Pulse Rate 101 H 100 H 126 H Pulse Rate [ From Monitor] Respiratory 22 20 Rate Blood Pressure 133/44 133/44 145/56 O2 Sat by Pulse 90 91 84 Oximetry 05/06/19 12:00 Temperature 102.5 F H Pulse Rate 120 H Pulse Rate [ 114 H From Monitor] Respiratory 22 Rate Blood Pressure 144/53 O2 Sat by Pulse 86 Oximetry - General Appearance General appearance: obese, chronically ill, sedated on ventilator EENT: ATNC, PERRL, mucous membranes moist Neck: no JVD Respiratory: Present: Decreased Breath Sounds Cardiology: regular, S1S2 Gastrointestinal: normal, normoactive bowel sounds Integumentary: no rash Neurologic: other (unable to assess patient is sedated) Psychiatric: depressed - Lab 05/06/19 04:45 05/06/19 04:45 Most recent lab results ABG pH 7.403 pH Units (7.350-7.450) 05/02/19 16:05 ABG pCO2 52.3 mm Hg 05/02/19 16:05 ABG pO2 66.6 mm Hg (80.0-90.0) L 05/02/19 16:05 ABG HCO3 31.9 mmol/L (20.0-26.0) H 05/02/19 16:05 ABG O2 Saturation 92.5 % (95.0-99.0) L 05/02/19 16:05 Calcium 7.5 mg/dL (8.4-10.2) L 05/06/19 04:45 Phosphorus 4.90 mg/dL (2.5-4.5) H 05/02/19 00:06 Magnesium 2.30 mg/dL (1.7-2.3) 05/02/19 00:06 - Imaging Chest x-ray: image reviewed (reviewed chest x-ray with atelectasis) Medications & Allergies - Medications Allergies/Adverse Reactions: Allergies No Known Allergies Allergy (Verified 05/01/19 20:27) Home Medications: Home Medications Medication Instructions Recorded Confirmed Last Taken Type No Known Home Medications [No 05/03/19 05/03/19 Unknown History Reported Home Medications] Active Medications: Generic Name Dose Route Start Last Admin Trade Name Freq PRN Reason Stop Dose Admin Acetaminophen 650 mg 05/01/19 22:46 05/06/19 13:00 Tylenol PO 650 mg Q4H PRN Administration Pain MILD(1-3)/Fever >100.5/FREEMAN Dextrose 50 gm 05/01/19 20:24 D50w (25gm) Vial IV Q30MIN PRN Hypoglycemia Protocol Enoxaparin Sodium 30 mg 05/05/19 10:00 05/06/19 09:12 Enoxaparin SUB-Q 30 mg QDAY VICKYE Administration Famotidine 20 mg 05/05/19 10:00 05/06/19 09:13 Pepcid PO 20 mg DAILY VICKEY Administration Fludrocortisone Acetate 0.1 mg 05/05/19 11:00 05/06/19 09:13 Florinef PO 0.1 mg QDAY VICKEY Administration Hydrophilic Ointment 1 applic 05/01/19 21:14 Vaseline Lip Therapy TP Q2HR PRN Dry Lips Fentanyl Citrate 2,000 mcg in 100 mls @ 10.195 mls/hr 05/01/19 22:00 05/06/19 12:51 Fentanyl Drip Premix IV 2 mcg/kg/hr TITR VICKEY 20.39 mls/hr Titration Protocol 1 MCG/KG/HR Propofol 1,000 mg in 100 mls @ 7.011 mls/hr 05/03/19 04:00 05/05/19 07:36 Diprivan 10 Mg/Ml IV 0 mcg/kg/min TITR VICKEY 0 mls/hr Titration Protocol 5 MCG/KG/MIN Metronidazole 500 mg in 100 mls @ 100 mls/hr 05/03/19 14:00 05/06/19 13:01 Flagyl 500 Mg/100 Ml IV 100 mls/hr Q8HR VICKEY Administration Protocol Norepinephrine 4 mg in 250 mls @ 7.5 mls/hr 05/03/19 18:00 Levophed Drip 4 Mg/Ns 250 Ml IV TITR VICKEY Protocol 2 MCG/MIN Dextrose/Sodium Chloride 1,000 mls @ 125 mls/hr 05/05/19 12:00 05/06/19 12:51 D5/0.45ns IV 125 mls/hr DIRECT VICKEY Administration Cefepime HCl 2 gm in 100 mls @ 200 mls/hr 05/06/19 11:00 05/06/19 12:51 Cefepime/Ns 2 Gm/100 Ml IV 200 mls/hr Q24HR VICKEY Administration Protocol Sodium Chloride 500 mls @ 10 mls/hr 05/06/19 15:00 Nacl 0.9% 500 Ml IV DIRECT VICKEY Lorazepam 2 mg 05/06/19 06:22 05/06/19 09:48 Ativan IV 2 mg Q4H PRN Administration Seizures Metoprolol Tartrate 25 mg 05/02/19 04:00 05/06/19 09:13 Metoprolol PO 25 mg BID VICKEY Administration Multi-Ingred Cream/Lotion/Oil/Oint 1 applic 05/01/19 21:14 Artificial Tears Ophth Oint OU Q4HR PRN Dry Eye(s) Ondansetron HCl 4 mg 05/01/19 22:46 Zofran IV Q8H PRN Nausea And Vomiting Sodium Chloride 10 ml 05/02/19 10:00 05/06/19 09:14 Sodium Chloride Flush Syringe 10 Ml IV 10 ml BID VICKEY Administration Sodium Chloride 10 ml 05/01/19 22:46 05/05/19 02:28 Sodium Chloride Flush Syringe 10 Ml IV 10 ml PRN PRN Administration LINE FLUSH
[2019-05-06] MEDS ORDERED: SODIUM CHLORIDE 0.9% 500 ML 500 ML IV SCH (15:00)
--- NOTE | 2019-05-06 19:04 | Progress Note ---
Assessment and Plan Assessment and plan: 34-year-old man who is morbidly obese with unknown medical problem was brought to the emergency room with complaints of shortness of breath and difficulty sleeping. History is per the chart, nurse reported that his saturation dropped to 28%, heart rate in the 50s, she checked on them, he was cyanotic and was subsequently intubated and recieved 2 rounds of epinephrine. Cardiac arrest. * Discussed with pulmonary, patient remains with sat of 88% despite ventilatory and oxygen, PEEP measures. will continue to attempt to drop FIO2 if patient tolerates * Diuresis held due to renal function worsening, appears to be improving today s/p Cardiac arrest Resuscitated cardiology consulted, following Acute hypoxic respiratory failure Status post intubation, continue sedation, consulted pulmonary Acute CHF, new onset, Diurese with IV lasix held, monitor I/O, daily weights Cardiology following. Added beta-jenny, no TIM inhibitor secondary to renal insufficiency Hypertension malignant Start antihypertensive, monitor blood pressure IV hydralazine as needed for further control Acute kidney injury due to ATN Worsening Nephrology following Hyperkalemia kayexalate today repeat potassium in am Fever due to SIRS versus Sepsis Consulted ID, following On empiric antibiotics Leukocytosis: SIRS versus Sepsis DVT prophylaxis with Lovenox Morbid obesity Full code status. Prognosis guarded The high probability of a clinically significant, sudden or life threatening deterioration of the [cardiovascular, Pulmonary, renal, neurological] system(s) required my full and direct attention, intervention and personal management. The aggregate critical care time was [35] minutes. This time is in addition to time spent performing reported procedures but includes the following: [x] Data Review and interpretation [x] Patient assessment and monitoring of vital signs [x] Documentation [x] Medication orders and management History Interval history: Patient seen and examined, remains on full ventilatory support Hospitalist Physical - Physical exam Narrative exam: Gen: Not in acute distress,intubated, on vent, morbidly obese HEENT: Normocephalic, atraumatic, short and large neck circumference Neck: supple, no JVD Heart: S1 and S2 reg, no murmurs, rubs or gallop Lungs: Clear to auscultation bilaterally, no wheeze Abd: soft, NT, non distended, normal bowel sounds Ext:No edema, no cyanosis Neuro: Intubated,sedated - Constitutional Vitals: Temp Pulse Resp BP Pulse Ox 103.2 F H 91 H 22 158/69 91 05/06/19 16:00 05/06/19 18:45 05/06/19 18:45 05/06/19 18:45 05/06/19 18:45 General appearance: Present: no acute distress Results - Labs CBC & Chem 7: 05/06/19 04:45 05/06/19 04:45 Labs: Laboratory Last Values WBC 11.4 K/mm3 (4.5-11.0) H 05/06/19 04:45 RBC 3.93 M/mm3 (3.65-5.03) 05/06/19 04:45 Hgb 10.7 gm/dl (11.8-15.2) L 05/06/19 04:45 Hct 34.2 % (35.5-45.6) L 05/06/19 04:45 MCV 87 fl (84-94) 05/06/19 04:45 MCH 27 pg (28-32) L 05/06/19 04:45 MCHC 31 % (32-34) L 05/06/19 04:45 RDW 16.9 % (13.2-15.2) H 05/06/19 04:45 Plt Count 203 K/mm3 (140-440) 05/06/19 04:45 Lymph % (Auto) 7.9 % (13.4-35.0) L 05/05/19 05:00 [place] % (Auto) 10.2 % (0.0-7.3) H 05/05/19 05:00 Eos % (Auto) 0.6 % (0.0-4.3) 05/05/19 05:00 Baso % (Auto) 0.5 % (0.0-1.8) 05/05/19 05:00 Lymph # 1.0 K/mm3 (1.2-5.4) L 05/05/19 05:00 [place] # 1.2 K/mm3 (0.0-0.8) H 05/05/19 05:00 Eos # 0.1 K/mm3 (0.0-0.4) 05/05/19 05:00 Baso # 0.1 K/mm3 (0.0-0.1) 05/05/19 05:00 Seg Neutrophils % 80.8 % (40.0-70.0) H 05/05/19 05:00 Seg Neutrophils # 9.7 K/mm3 (1.8-7.7) H 05/05/19 05:00 PT 15.4 Sec. (12.2-14.9) H 05/01/19 Unknown INR 1.23 (0.87-1.13) H 05/01/19 Unknown APTT 22.7 Sec. (24.2-36.6) L 05/01/19 Unknown POC ABG pH 7.373 (7.35-7.45) 05/06/19 03:58 ABG pH 7.403 pH Units (7.350-7.450) 05/02/19 16:05 POC ABG pCO2 62.4 (35-45) H 05/06/19 03:58 ABG pCO2 52.3 mm Hg 05/02/19 16:05 POC ABG pO2 111 (80-105) H 05/06/19 03:58 ABG pO2 66.6 mm Hg (80.0-90.0) L 05/02/19 16:05 POC ABG HCO3 36.3 (22-26 mml/L) 05/06/19 03:58 ABG HCO3 31.9 mmol/L (20.0-26.0) H 05/02/19 16:05 POC ABG Total CO2 38 (23-27mmol/L) 05/06/19 03:58 POC ABG O2 Sat 98 05/06/19 03:58 ABG O2 Saturation 92.5 % (95.0-99.0) L 05/02/19 16:05 ABG O2 Content 16.9 (0.0-44) 05/02/19 16:05 POC ABG Base Excess 11 ((-2) - (+3)mmol/L) 05/06/19 03:58 ABG Base Excess 5.8 mmol/L (-2.0-3.0) H 05/02/19 16:05 ABG Hemoglobin 13.3 gm/dl (14.0-18.0) L 05/02/19 16:05 ABG Carboxyhemoglobin 1.6 % (0.0-5.0) 05/02/19 16:05 ABG Methemoglobin 0.6 % (0.0-1.5) 05/02/19 16:05 Oxyhemoglobin 90.6 % (95.0-99.0) L 05/02/19 16:05 FiO2 90 % 05/06/19 03:58 Sodium 149 mmol/L (137-145) H 05/06/19 04:45 Potassium 4.0 mmol/L (3.6-5.0) D 05/06/19 04:45 Chloride 106.5 mmol/L (98-107) 05/06/19 04:45 Carbon Dioxide 31 mmol/L (22-30) H 05/06/19 04:45 Anion Gap 16 mmol/L 05/06/19 04:45 BUN 67 mg/dL (9-20) H 05/06/19 04:45 Creatinine 3.2 mg/dL (0.8-1.5) H 05/06/19 04:45 Estimated GFR 27 ml/min 05/06/19 04:45 BUN/Creatinine Ratio 21 % 05/06/19 04:45 Glucose 125 mg/dL (75-100) H 05/06/19 04:45 POC Glucose 128 (70-105) H 05/06/19 18:34 Calcium 7.5 mg/dL (8.4-10.2) L 05/06/19 04:45 Phosphorus 4.90 mg/dL (2.5-4.5) H 05/02/19 00:06 Magnesium 2.30 mg/dL (1.7-2.3) 05/02/19 00:06 Total Bilirubin 0.40 mg/dL (0.1-1.2) 05/05/19 05:00 AST 93 units/L (5-40) H 05/05/19 05:00 ALT 65 units/L (7-56) H 05/05/19 05:00 Alkaline Phosphatase 70 units/L (35-129) 05/05/19 05:00 Total Creatine Kinase 131 units/L (55-170) 05/02/19 04:41 CK-MB (CK-2) 5.2 ng/mL (0.0-4.0) H 05/02/19 04:41 CK-MB (CK-2) Rel Index 3.9 (0-4) 05/02/19 04:41 Troponin T 0.067 ng/mL (0.00-0.029) H D 05/02/19 04:41 NT-Pro-B Natriuret Pep 6831 pg/mL (0-450) H 05/01/19 Unknown Total Protein 6.9 g/dL (6.3-8.2) 05/05/19 05:00 Albumin 2.9 g/dL (3.9-5) L 05/05/19 05:00 Albumin/Globulin Ratio 0.7 % 05/05/19 05:00 Triglycerides 182 mg/dL (2-149) H 05/02/19 00:06 Cholesterol 173 mg/dL (50-199) 05/02/19 00:06 LDL Cholesterol Direct 126 mg/dL (50-130) 05/02/19 00:06 HDL Cholesterol 18 mg/dL (40-59) L 05/02/19 00:06 Cholesterol/HDL Ratio 9.61 % 05/02/19 00:06 Procalcitonin 0.54 ng/mL (<0.15) 05/03/19 11:52 Urine Color Yellow (Yellow) 05/03/19 10:55 Urine Turbidity Turbid (Clear) 05/03/19 10:55 Urine pH 5.0 (5.0-7.0) 05/03/19 10:55 Ur Specific [place] 1.014 (1.003-1.030) 05/03/19 10:55 Urine Protein <15 mg/dl mg/dL (Negative) 05/03/19 10:55 Urine Glucose (UA) Neg mg/dL (Negative) 05/03/19 10:55 Urine Ketones Neg mg/dL (Negative) 05/03/19 10:55 Urine Blood Lg (Negative) 05/03/19 10:55 Urine Nitrite Neg (Negative) 05/03/19 10:55 Urine Bilirubin Neg (Negative) 05/03/19 10:55 Urine Urobilinogen < 2.0 mg/dL (<2.0) 05/03/19 10:55 Ur Leukocyte Esterase Mod (Negative) 05/03/19 10:55 Urine WBC (Auto) 33.0 /HPF (0.0-6.0) H 05/03/19 10:55 Urine RBC (Auto) 8.0 /HPF (0.0-6.0) 05/03/19 10:55 Urine Bacteria (Auto) 1+ /HPF (Negative) 05/03/19 10:55 Uric Acid Crystals 3+ 05/03/19 10:55 Urine Mucus Few /HPF 05/03/19 10:55 Active Medications - Current Medications Current Medications: Generic Name Dose Route Start Last Admin Trade Name Freq PRN Reason Stop Dose Admin Acetaminophen 650 mg 05/01/19 22:46 05/06/19 13:00 Tylenol PO 650 mg Q4H PRN Administration Pain MILD(1-3)/Fever >100.5/FREEMAN Dextrose 50 gm 05/01/19 20:24 D50w (25gm) Vial IV Q30MIN PRN Hypoglycemia Protocol Enoxaparin Sodium 30 mg 05/05/19 10:00 05/06/19 09:12 Enoxaparin SUB-Q 30 mg QDAY VICKEY Administration Famotidine 20 mg 05/05/19 10:00 05/06/19 09:13 Pepcid PO 20 mg DAILY VICKEY Administration Fludrocortisone Acetate 0.1 mg 05/05/19 11:00 05/06/19 09:13 Florinef PO 0.1 mg QDAY VICKEY Administration Hydrophilic Ointment 1 applic 05/01/19 21:14 Vaseline Lip Therapy TP Q2HR PRN Dry Lips Fentanyl Citrate 2,000 mcg in 100 mls @ 10.195 mls/hr 05/01/19 22:00 05/06/19 18:00 Fentanyl Drip Premix IV 3 mcg/kg/hr TITR VICKEY 30.585 mls/hr Titration Protocol 1 MCG/KG/HR Propofol 1,000 mg in 100 mls @ 7.011 mls/hr 05/03/19 04:00 05/05/19 07:36 Diprivan 10 Mg/Ml IV 0 mcg/kg/min TITR VICKEY 0 mls/hr Titration Protocol 5 MCG/KG/MIN Metronidazole 500 mg in 100 mls @ 100 mls/hr 05/03/19 14:00 05/06/19 13:01 Flagyl 500 Mg/100 Ml IV 100 mls/hr Q8HR VICKEY Administration Protocol Norepinephrine 4 mg in 250 mls @ 7.5 mls/hr 05/03/19 18:00 Levophed Drip 4 Mg/Ns 250 Ml IV TITR VICKEY Protocol 2 MCG/MIN Dextrose/Sodium Chloride 1,000 mls @ 125 mls/hr 05/05/19 12:00 12/12/19 12:51 D5/0.45ns IV 125 mls/hr DIRECT VICKEY Administration Cefepime HCl 2 gm in 100 mls @ 200 mls/hr 05/06/19 11:00 05/06/19 12:51 Cefepime/Ns 2 Gm/100 Ml IV 200 mls/hr Q24HR VICKEY Administration Protocol Sodium Chloride 500 mls @ 10 mls/hr 05/06/19 15:00 Nacl 0.9% 500 Ml IV DIRECT VICKEY Lorazepam 2 mg 05/06/19 06:22 05/06/19 09:48 Ativan IV 2 mg Q4H PRN Administration Seizures Metoprolol Tartrate 25 mg 05/02/19 04:00 05/06/19 09:13 Metoprolol PO 25 mg BID VICKEY Administration Multi-Ingred Cream/Lotion/Oil/Oint 1 applic 05/01/19 21:14 Artificial Tears Ophth Oint OU Q4HR PRN Dry Eye(s) Ondansetron HCl 4 mg 05/01/19 22:46 Zofran IV Q8H PRN Nausea And Vomiting Sodium Chloride 10 ml 05/02/19 10:00 05/06/19 09:14 Sodium Chloride Flush Syringe 10 Ml IV 10 ml BID VICKEY Administration Sodium Chloride 10 ml 05/01/19 22:46 05/05/19 02:28 Sodium Chloride Flush Syringe 10 Ml IV 10 ml PRN PRN Administration LINE FLUSH Nutrition/Malnutrition Assess - Dietary Evaluation Nutrition/Malnutrition Findings: Nutrition Notes Start: 05/04/19 12:54 Freq: Status: Active Protocol: Document 05/05/19 11:44 DW (Rec: 05/05/19 11:53 DW [id number]) Co-Sign 05/05/19 11:44 LP Nutrition Notes Initial or Follow up Reassessment Current Diagnosis Acute Kidney Injury,Sepsis, Respiratory Failure Current Diet Nepro 1.8 at 60ml/hr Labs/Tests Na 151 K 5.1 Glu 117 BUN 64 Cr 3.5 Pertinent Medications Levophed Enaxoprine Height 6 ft 4 in Weight 227.5 kg [place] Body Weight (kg) 91.81 BMI 61.0 Weight Status Morbidly Obese Subjective/Other Information FU Tube Feed Start Upon arrival noted TF running at 40 ml/hr Percent of energy/protein needs met: 46%/35% Burn Absent Trauma Absent Current % PO Negligible Minimum of two criteria No physical signs of malnutrition #1 Nutrition Diagnosis Inadequate oral intake Diagnosis Progress(for reassessment Continues documentation) Is patient on ventilator? Yes Is Patient Ambulatory and/or Out of Bed No REE-([facility]-confined to bed) 3986.244 Kcal/Kg value to use for calculation 11 Approximate Energy Requirements Using 2503 kcal/Kg Calculation Used for Recommendations Kcal/kg Additional Notes PRO needs: 225 g (up to 2.5 g/ kg 91.81 IBW) Fluid needs: 1 ml/kcal Nutrition Intervention Change Diet Order: Change to Nepro 1.8 at 50 ml/ hr Nutrition Support: Nepro 1.8 at 50 ml/hr 250 ml flush q4h Kcal 2,160 Protein (gm) 97 Fluid (mL) 872 Goal #1 TF tolerance Goal #2 Meet at least 75% kcal/PRO needs via TF Anticipated Discharge Needs: Unable to determine at this time Follow-Up By: 05/07/19 Additional Comments FU TF tolerance, Na labs
--- NOTE | 2019-05-07 01:38 | Consultation ---
This is a neurologic consult on this 34-year-old black male, who was not known to the Emergency Room previously presented when he was noted to be using a friend's CPAP machine, apparently, became worse. He was seen because of problems with severe physical limitations and nausea, vomiting and shaking. He was severely dyspneic, was then admitted to the hospital with elevated blood pressure 145/80, temperature 98.1 degrees. He was initially felt to have respiratory failure with hypoventilation, [place], obstructive apnea, right-sided heart failure, congestive heart failure, pneumonia. Since being admission, he has remained comatose. Most recent evaluation would indicate he has also had seizures. I am seeing him because of that reason. Seeing him in the ICU at present time, I do not notice any overt seizures at this point. His pO2 on gases are 111, pCO2 is 62. His hematocrit is 34, his white blood count 10,700. His sodium is 140. His BUN is 67, his creatinine is 3.2. He is in renal failure. I noticed that he is hypotonic throughout. He is not awaken, his eyes are shut, but he does have a positive ____ eyes, does move spontaneously to stimulation, but given his large size, which I would estimate exceeds 500 pounds, he has difficulty to move, given not supporting his limbs, but at this point, the patient has great paucity of movement. He appears to be paretic throughout. I do not notice that he has any meningismus. IMPRESSION: Acute encephalopathy, hypercapnic, also renal failure, possibly hepatic failure as well related to combined effects of multiorgan failure, seizures could be resulting from any of the above, we would recommend treatment. We cannot do any imaging studies on the patient because his weight is not allowing to be moved on table. I am recommending a portable EEG be obtained. JOB# [id number] MARCELA/MICHAEL
[2019-05-07] MEDS: fentaNYL DRIP Premix 2,000 MCG/100 ML BAG IV SCH ×6 (01:45→22:24)
[2019-05-07] MEDS: LORazepam 2 MG/ML VIAL IV PRN ×3 (02:10→18:49)
--- NOTE | 2019-05-07 02:47 | XRay Report ---
CHEST 1 VIEW 05/07/2019 1:57 AM INDICATION / CLINICAL INFORMATION: follow up respiratory failure. COMPARISON: One view of the chest from 05/06/2019. FINDINGS: SUPPORT DEVICES: Stable positioning. HEART / MEDIASTINUM: Stable. LUNGS / PLEURA: Stable bilateral interstitial opacities. No significant pleural effusion. No pneumoth orax. ADDITIONAL FINDINGS: No significant additional findings. IMPRESSION: Stable appearance of the chest. Signer Name: Mina Calloway MD Signed: 05/07/2019 2:43 AM Workstation Name: [id number]
[2019-05-07] MEDS: metroNIDAZOLE/NS 500 MG/100 ML 500 MG/100 ML BAG IV SCH ×2 (05:44→13:15)
[2019-05-07] MEDS: D5W/0.45% NACL 1,000 ML IV SCH (05:49)
[2019-05-07] MEDS: ENOXAPARIN 30 MG/0.3 ML INJ SUB-Q SCH (09:52)
[2019-05-07] MEDS: FAMOTIDINE 20 MG TAB PO SCH (09:53)
[2019-05-07] MEDS: CEFEPIME/NS 2 GM/100 ML 2 GM/100 ML BAG IV SCH (09:53)
[2019-05-07] MEDS: METOPROLOL TARTRATE 25 MG TAB PO SCH ×2 (09:54→22:24)
[2019-05-07] MEDS: FLUDROCORTISONE 0.1 MG TAB PO SCH (09:56)
[2019-05-07 10:05] LABS: Hematocrit 37.6 % (35.5-45.6); Hemoglobin 11.6 gm/dl (11.8-15.2); Mean Corpuscular HGB Conc 31 % (32-34); Mean Corpuscular Volume 88 fl (84-94); Platelet Count 216 K/mm3 (140-440); Red Blood Count 4.26 M/mm3 (3.65-5.03); Red Cell Distribution Width 17.5 % (13.2-15.2)
[2019-05-07 10:23] LABS: Calcium 7.9 mg/dL (8.4-10.2)
[2019-05-07] MEDS ORDERED: VANCOMYCIN PHARMACY TO DOSE IV SCH (12:00)
[2019-05-07] MEDS: ACETAMINOPHEN 325 MG/10.15 ML ORAL LIQD UNIT DOSE PO SCH ×2 (12:00→18:00)
--- NOTE | 2019-05-07 12:15 | Progress Note ---
Assessment and Plan Per primary RN, pt had a seizure overnight. Neurology is following. Cont present supportive management. Will follow peripherally over the weekend. The patient has been seen in conjunction with Dr. Kolb who agrees with the assessment and plan of care. - Patient Problems (1) Acute respiratory failure Current Visit: Yes Status: Acute (2) Acute heart failure with preserved ejection fraction Current Visit: Yes Status: Acute (3) Acute kidney injury Current Visit: Yes Status: Acute (4) Anemia Current Visit: Yes Status: Acute (5) Morbid obesity Current Visit: Yes Status: Chronic (6) UTI (urinary tract infection) Current Visit: Yes Status: Acute (7) Fever Current Visit: Yes Status: Acute (8) Sepsis Current Visit: Yes Status: Suspected (9) Elevated troponin Current Visit: Yes Status: Acute (10) NSVT (nonsustained ventricular tachycardia) Current Visit: Yes Status: Acute (11) LANDON (obstructive sleep apnea) Current Visit: Yes Status: Suspected Subjective Date of service: 05/07/19 Principal diagnosis: HF; acute hypoxemic resp failure, SIRS, CARLA Interval history: pt remains intubated, sedated, agitated. in SR on tele. no family at bedside. per primary RN, pt had a seizure overnight. Objective Last Vital Signs Temp 101.4 F H 05/07/19 08:00 Pulse 119 H 05/07/19 09:54 Resp 22 05/07/19 06:30 BP 159/74 05/07/19 09:54 Pulse Ox 92 05/07/19 08:00 - Physical Examination General: Other (intubated, sedated) HEENT: Positive: PERRL Neck: Positive: trachea midline Cardiac: Positive: Reg Rate and Rhythm, S1/S2 Lungs: Positive: Decreased Breath Sounds Neuro: Positive: Other (intubated, sedated) Abdomen: Positive: Unremarkable Skin: Positive: Clear Musculoskeletal: Decreased Range of Motion Extremities: Present: normal - Labs and Meds CBC 05/07/19 Range/Units 09:35 WBC 13.4 H (4.5-11.0) K/mm3 RBC 4.26 (3.65-5.03) M/mm3 Hgb 11.6 L (11.8-15.2) gm/dl Hct 37.6 (35.5-45.6) % Plt Count 216 (140-440) K/mm3 Comprehensive Metabolic Panel 05/07/19 Range/Units 09:35 Sodium 145 (137-145) mmol/L Potassium 4.2 (3.6-5.0) mmol/L Chloride 102.5 (98-107) mmol/L Carbon Dioxide 28 (22-30) mmol/L BUN 76 H (9-20) mg/dL Creatinine 3.2 H (0.8-1.5) mg/dL Glucose 147 H (75-100) mg/dL Calcium 7.9 L (8.4-10.2) mg/dL - Imaging and Cardiology EKG: image reviewed Echo: report reviewed (TDS, EF 55-60%, mild LVH, mild TR, RVSP 40mmHg. )
--- NOTE | 2019-05-07 12:45 | Progress Note ---
Assessment and Plan 34 y/o male with acute hypoxic, hypercapnic respiratory failure currently ventilated and sedated, now with persistent fevers and seizure. 1. Neuro: seizure vs seizure like activity. Unfortunately, patient is too large for the scanner. Will empirically treat for Meningitis. Added Vancomycin. Will also obtain EEG. Not on Diprovan. If seizure activity seen (nonconvulsive status) will place back on diprovan. 2. Pulm: continue to wean FiO2 for sats >88% and or PaO2 of greater than 55. Do not wean PEEP until FiO2 is a 50% or lower. Permissive hypercapnea is ok as long as pH is not lower than 7.2 3. Renal: Cr stable, BUN worsening. Renal following. Holding diuretic therapy at this time. 4. Fever: Needs repeat cultures. Picc is likely not the source as patient was febrile prior to picc being placed. Did remove han yesterday. Overall prognosis is guarded to poor. CCT 31 minutes. Subjective Date of service: 05/07/19 Principal diagnosis: HF; acute hypoxemic resp failure, SIRS, CARLA Interval history: FiO2 down to 75%. PEEP remains at 20. Persistently febrile since 1800 yesterday. No repeat cultures drawn. Also had seizure or seizure like activity and ativan was given for this. Objective Vital Signs - 12hr 05/07/19 05/07/19 05/07/19 00:45 01:00 01:10 Temperature Pulse Rate 95 H 122 H 104 H Respiratory 22 16 22 Rate Blood Pressure 141/60 162/78 O2 Sat by Pulse 87 87 96 Oximetry 05/07/19 05/07/19 05/07/19 01:15 01:30 01:45 Temperature Pulse Rate 104 H 97 H 97 H Respiratory 24 22 22 Rate Blood Pressure 146/62 142/59 137/63 O2 Sat by Pulse 95 96 96 Oximetry 05/07/19 05/07/19 05/07/19 02:00 02:16 02:30 Temperature Pulse Rate 103 H 121 H 105 H Respiratory 18 22 22 Rate Blood Pressure 146/62 164/85 149/74 O2 Sat by Pulse 94 75 L 90 Oximetry 05/07/19 05/07/19 05/07/19 02:45 03:00 03:15 Temperature 100.5 F H Pulse Rate 103 H 102 H 104 H Respiratory 22 22 22 Rate Blood Pressure 148/72 162/65 151/67 O2 Sat by Pulse 92 95 95 Oximetry 05/07/19 05/07/19 05/07/19 03:30 03:40 03:45 Temperature Pulse Rate 100 H 103 H 96 H Respiratory 22 22 22 Rate Blood Pressure 139/63 136/62 O2 Sat by Pulse 96 96 98 Oximetry 05/07/19 05/07/19 05/07/19 04:00 04:15 04:30 Temperature Pulse Rate 97 H 98 H 97 H Respiratory 22 22 22 Rate Blood Pressure 150/63 149/65 135/62 O2 Sat by Pulse 97 98 95 Oximetry 05/07/19 05/07/19 05/07/19 04:45 05:00 05:15 Temperature Pulse Rate 99 H 113 H 121 H Respiratory 22 22 22 Rate Blood Pressure 144/62 144/62 162/72 O2 Sat by Pulse 97 79 L 76 L Oximetry 05/07/19 05/07/19 05/07/19 05:30 05:45 05:50 Temperature Pulse Rate 123 H 125 H 125 H Respiratory 19 18 22 Rate Blood Pressure 166/73 164/82 O2 Sat by Pulse 83 L 91 96 Oximetry 05/07/19 05/07/19 05/07/19 06:00 06:15 06:30 Temperature Pulse Rate 118 H 107 H 103 H Respiratory 22 21 22 Rate Blood Pressure 174/78 148/57 145/58 O2 Sat by Pulse 91 89 92 Oximetry 05/07/19 05/07/19 05/07/19 08:00 09:54 12:05 Temperature 101.4 F H Pulse Rate 95 H 119 H 94 H Respiratory Rate Blood Pressure 145/66 159/74 O2 Sat by Pulse 92 92 Oximetry Constitutional: other (morbidly obese male, sedated on vent) Eyes: non-icteric Neck: other (extremely large in circumference) Effort: normal Ascultation: Bilateral: diminished breath sounds (secondary to body habitus) CBC and BMP: 05/07/19 09:35 05/07/19 09:35 ABG, PT/INR, D-dimer: ABG POC ABG pH 7.288 (7.35-7.45) L 05/07/19 07:03 ABG pH 7.403 pH Units (7.350-7.450) 05/02/19 16:05 ABG pCO2 52.3 mm Hg 05/02/19 16:05 POC ABG pO2 56 (80-105) L 05/07/19 07:03 ABG pO2 66.6 mm Hg (80.0-90.0) L 05/02/19 16:05 POC ABG HCO3 34.1 (22-26 mml/L) 05/07/19 07:03 POC ABG Total CO2 36 (23-27mmol/L) 05/07/19 07:03 POC ABG O2 Sat 83 05/07/19 07:03 ABG O2 Saturation 92.5 % (95.0-99.0) L 05/02/19 16:05 PT/INR, D-dimer PT 15.4 Sec. (12.2-14.9) H 05/01/19 Unknown INR 1.23 (0.87-1.13) H 05/01/19 Unknown Abnormal lab findings: Abnormal Labs 05/01/19 05/01/19 05/01/19 17:50 19:26 22:36 WBC Hgb Hct MCH MCHC RDW Lymph % (Auto) [place] % (Auto) Lymph # [place] # Seg Neutrophils % Seg Neutrophils # PT INR APTT POC ABG pH 7.272 L 7.331 L POC ABG pCO2 52.8 H POC ABG pO2 ABG pO2 ABG HCO3 ABG O2 Saturation ABG Base Excess ABG Hemoglobin Oxyhemoglobin Sodium 136 L Potassium 6.5 H* Chloride 97.2 L Carbon Dioxide BUN 60 H Creatinine Glucose 113 H POC Glucose Calcium Phosphorus Magnesium 2.40 H AST 139 H ALT 154 H Total Creatine Kinase CK-MB (CK-2) Troponin T NT-Pro-B Natriuret Pep Albumin 3.8 L Triglycerides HDL Cholesterol Urine WBC (Auto) 05/01/19 05/01/19 05/01/19 Unknown Unknown Unknown WBC 16.1 H Hgb Hct MCH MCHC RDW 17.2 H Lymph % (Auto) [place] % (Auto) 9.6 H Lymph # [place] # 1.5 H Seg Neutrophils % 73.0 H Seg Neutrophils # 11.7 H PT 15.4 H INR 1.23 H APTT 22.7 L POC ABG pH POC ABG pCO2 POC ABG pO2 ABG pO2 ABG HCO3 ABG O2 Saturation ABG Base Excess ABG Hemoglobin Oxyhemoglobin Sodium Potassium Chloride Carbon Dioxide BUN Creatinine Glucose POC Glucose Calcium Phosphorus Magnesium AST ALT Total Creatine Kinase CK-MB (CK-2) Troponin T NT-Pro-B Natriuret Pep 6831 H Albumin Triglycerides HDL Cholesterol Urine WBC (Auto) 05/01/19 05/02/19 05/02/19 Unknown 00:06 00:06 WBC Hgb Hct MCH MCHC RDW Lymph % (Auto) [place] % (Auto) Lymph # [place] # Seg Neutrophils % Seg Neutrophils # PT INR APTT POC ABG pH POC ABG pCO2 POC ABG pO2 ABG pO2 ABG HCO3 ABG O2 Saturation ABG Base Excess ABG Hemoglobin Oxyhemoglobin Sodium Potassium Chloride Carbon Dioxide BUN Creatinine Glucose POC Glucose Calcium Phosphorus 4.90 H Magnesium AST ALT Total Creatine Kinase 226 H CK-MB (CK-2) 5.7 H Troponin T 0.044 H NT-Pro-B Natriuret Pep Albumin Triglycerides 182 H HDL Cholesterol 18 L Urine WBC (Auto) 05/02/19 05/02/19 05/02/19 02:08 04:40 04:41 WBC 17.6 H Hgb Hct MCH 27 L MCHC RDW 17.4 H Lymph % (Auto) 10.2 L [place] % (Auto) 11.0 H Lymph # [place] # 1.9 H Seg Neutrophils % 78.0 H Seg Neutrophils # 13.8 H PT INR APTT POC ABG pH POC ABG pCO2 46.8 H POC ABG pO2 63 L ABG pO2 ABG HCO3 ABG O2 Saturation ABG Base Excess ABG Hemoglobin Oxyhemoglobin Sodium Potassium Chloride 96.3 L Carbon Dioxide BUN 63 H Creatinine 1.7 H Glucose POC Glucose Calcium Phosphorus Magnesium AST ALT Total Creatine Kinase CK-MB (CK-2) Troponin T NT-Pro-B Natriuret Pep Albumin Triglycerides HDL Cholesterol Urine WBC (Auto) 05/02/19 05/02/19 05/02/19 04:41 04:41 16:05 WBC Hgb Hct MCH MCHC RDW Lymph % (Auto) [place] % (Auto) Lymph # [place] # Seg Neutrophils % Seg Neutrophils # PT INR APTT POC ABG pH POC ABG pCO2 POC ABG pO2 ABG pO2 66.6 L ABG HCO3 31.9 H ABG O2 Saturation 92.5 L ABG Base Excess 5.8 H ABG Hemoglobin 13.3 L Oxyhemoglobin 90.6 L Sodium Potassium Chloride 97.2 L Carbon Dioxide BUN 61 H Creatinine 1.8 H Glucose POC Glucose Calcium Phosphorus Magnesium AST ALT Total Creatine Kinase CK-MB (CK-2) 5.2 H Troponin T 0.067 H D NT-Pro-B Natriuret Pep Albumin Triglycerides HDL Cholesterol Urine WBC (Auto) 05/02/19 05/03/19 05/03/19 20:39 04:35 05:05 WBC 11.8 H Hgb Hct MCH 27 L MCHC 31 L RDW 17.2 H Lymph % (Auto) [place] % (Auto) Lymph # [place] # Seg Neutrophils % Seg Neutrophils # PT INR APTT POC ABG pH POC ABG pCO2 53.6 H 54.0 H POC ABG pO2 55 L 63 L ABG pO2 ABG HCO3 ABG O2 Saturation ABG Base Excess ABG Hemoglobin Oxyhemoglobin Sodium Potassium Chloride Carbon Dioxide BUN Creatinine Glucose POC Glucose Calcium Phosphorus Magnesium AST ALT Total Creatine Kinase CK-MB (CK-2) Troponin T NT-Pro-B Natriuret Pep Albumin Triglycerides HDL Cholesterol Urine WBC (Auto) 05/03/19 05/03/19 05/03/19 05:05 10:55 16:48 WBC Hgb Hct MCH MCHC RDW Lymph % (Auto) [place] % (Auto) Lymph # [place] # Seg Neutrophils % Seg Neutrophils # PT INR APTT POC ABG pH 7.604 H POC ABG pCO2 POC ABG pO2 58 L ABG pO2 ABG HCO3 ABG O2 Saturation ABG Base Excess ABG Hemoglobin Oxyhemoglobin Sodium Potassium Chloride Carbon Dioxide BUN 52 H Creatinine 1.9 H Glucose 103 H POC Glucose Calcium Phosphorus Magnesium AST ALT Total Creatine Kinase CK-MB (CK-2) Troponin T NT-Pro-B Natriuret Pep Albumin Triglycerides HDL Cholesterol Urine WBC (Auto) 33.0 H 05/04/19 05/04/19 05/04/19 04:49 06:50 06:50 WBC 16.0 H Hgb Hct MCH 27 L MCHC 31 L RDW 17.8 H Lymph % (Auto) [place] % (Auto) Lymph # [place] # Seg Neutrophils % Seg Neutrophils # PT INR APTT POC ABG pH 7.273 L POC ABG pCO2 POC ABG pO2 ABG pO2 ABG HCO3 ABG O2 Saturation ABG Base Excess ABG Hemoglobin Oxyhemoglobin Sodium 148 H Potassium 5.5 H Chloride Carbon Dioxide BUN 53 H Creatinine 3.3 H D Glucose 106 H POC Glucose Calcium 8.3 L Phosphorus Magnesium AST ALT Total Creatine Kinase CK-MB (CK-2) Troponin T NT-Pro-B Natriuret Pep Albumin Triglycerides HDL Cholesterol Urine WBC (Auto) 05/05/19 05/05/19 05/05/19 00:05 04:30 05:00 WBC Hgb Hct MCH MCHC RDW Lymph % (Auto) [place] % (Auto) Lymph # [place] # Seg Neutrophils % Seg Neutrophils # PT INR APTT POC ABG pH 7.225 L POC ABG pCO2 > 70 H POC ABG pO2 ABG pO2 ABG HCO3 ABG O2 Saturation ABG Base Excess ABG Hemoglobin Oxyhemoglobin Sodium 151 H Potassium 5.1 H Chloride Carbon Dioxide BUN 64 H Creatinine 3.5 H Glucose 117 H POC Glucose 141 H Calcium 7.5 L Phosphorus Magnesium AST 93 H ALT 65 H Total Creatine Kinase CK-MB (CK-2) Troponin T NT-Pro-B Natriuret Pep Albumin 2.9 L Triglycerides HDL Cholesterol Urine WBC (Auto) 05/05/19 05/05/19 05/05/19 05:00 12:02 17:46 WBC 12.0 H Hgb 11.3 L Hct MCH 27 L MCHC 30 L RDW 18.4 H Lymph % (Auto) 7.9 L [place] % (Auto) 10.2 H Lymph # 1.0 L [place] # 1.2 H Seg Neutrophils % 80.8 H Seg Neutrophils # 9.7 H PT INR APTT POC ABG pH POC ABG pCO2 POC ABG pO2 ABG pO2 ABG HCO3 ABG O2 Saturation ABG Base Excess ABG Hemoglobin Oxyhemoglobin Sodium Potassium Chloride Carbon Dioxide BUN Creatinine Glucose POC Glucose 125 H 112 H Calcium Phosphorus Magnesium AST ALT Total Creatine Kinase CK-MB (CK-2) Troponin T NT-Pro-B Natriuret Pep Albumin Triglycerides HDL Cholesterol Urine WBC (Auto) 05/05/19 05/06/19 05/06/19 23:42 03:58 04:45 WBC 11.4 H Hgb 10.7 L Hct 34.2 L MCH 27 L MCHC 31 L RDW 16.9 H Lymph % (Auto) [place] % (Auto) Lymph # [place] # Seg Neutrophils % Seg Neutrophils # PT INR APTT POC ABG pH POC ABG pCO2 62.4 H POC ABG pO2 111 H ABG pO2 ABG HCO3 ABG O2 Saturation ABG Base Excess ABG Hemoglobin Oxyhemoglobin Sodium Potassium Chloride Carbon Dioxide BUN Creatinine Glucose POC Glucose 128 H Calcium Phosphorus Magnesium AST ALT Total Creatine Kinase CK-MB (CK-2) Troponin T NT-Pro-B Natriuret Pep Albumin Triglycerides HDL Cholesterol Urine WBC (Auto) 05/06/19 05/06/19 05/06/19 04:45 05:33 12:30 WBC Hgb Hct MCH MCHC RDW Lymph % (Auto) [place] % (Auto) Lymph # [place] # Seg Neutrophils % Seg Neutrophils # PT INR APTT POC ABG pH POC ABG pCO2 POC ABG pO2 ABG pO2 ABG HCO3 ABG O2 Saturation ABG Base Excess ABG Hemoglobin Oxyhemoglobin Sodium 149 H Potassium Chloride Carbon Dioxide 31 H BUN 67 H Creatinine 3.2 H Glucose 125 H POC Glucose 117 H 116 H Calcium 7.5 L Phosphorus Magnesium AST ALT Total Creatine Kinase CK-MB (CK-2) Troponin T NT-Pro-B Natriuret Pep Albumin Triglycerides HDL Cholesterol Urine WBC (Auto) 05/06/19 05/06/19 05/07/19 18:34 23:16 05:22 WBC Hgb Hct MCH MCHC RDW Lymph % (Auto) [place] % (Auto) Lymph # [place] # Seg Neutrophils % Seg Neutrophils # PT INR APTT POC ABG pH POC ABG pCO2 POC ABG pO2 ABG pO2 ABG HCO3 ABG O2 Saturation ABG Base Excess ABG Hemoglobin Oxyhemoglobin Sodium Potassium Chloride Carbon Dioxide BUN Creatinine Glucose POC Glucose 128 H 143 H 166 H Calcium Phosphorus Magnesium AST ALT Total Creatine Kinase CK-MB (CK-2) Troponin T NT-Pro-B Natriuret Pep Albumin Triglycerides HDL Cholesterol Urine WBC (Auto) 05/07/19 05/07/19 05/07/19 06:33 07:03 09:35 WBC Hgb Hct MCH MCHC RDW Lymph % (Auto) [place] % (Auto) Lymph # [place] # Seg Neutrophils % Seg Neutrophils # PT INR APTT POC ABG pH 7.263 L 7.288 L POC ABG pCO2 POC ABG pO2 51 L 56 L ABG pO2 ABG HCO3 ABG O2 Saturation ABG Base Excess ABG Hemoglobin Oxyhemoglobin Sodium Potassium Chloride Carbon Dioxide BUN 76 H Creatinine 3.2 H Glucose 147 H POC Glucose Calcium 7.9 L Phosphorus Magnesium AST ALT Total Creatine Kinase CK-MB (CK-2) Troponin T NT-Pro-B Natriuret Pep Albumin Triglycerides HDL Cholesterol Urine WBC (Auto) 05/07/19 05/07/19 09:35 12:17 WBC 13.4 H Hgb 11.6 L Hct MCH 27 L MCHC 31 L RDW 17.5 H Lymph % (Auto) [place] % (Auto) Lymph # [place] # Seg Neutrophils % Seg Neutrophils # PT INR APTT POC ABG pH POC ABG pCO2 POC ABG pO2 ABG pO2 ABG HCO3 ABG O2 Saturation ABG Base Excess ABG Hemoglobin Oxyhemoglobin Sodium Potassium Chloride Carbon Dioxide BUN Creatinine Glucose POC Glucose 130 H Calcium Phosphorus Magnesium AST ALT Total Creatine Kinase CK-MB (CK-2) Troponin T NT-Pro-B Natriuret Pep Albumin Triglycerides HDL Cholesterol Urine WBC (Auto)
--- NOTE | 2019-05-07 12:52 | Progress Note ---
Subjective Principal diagnosis: HF; acute hypoxemic resp failure, SIRS, CARLA Interval history: Patient was seen today for follow-up on multiple renal related issues Events of this hospitalization were noted has been admitted here with respiratory failure bradycardia hypotension and hypoxemia Noted to have worsening renal failure Interdisciplinary notes were also reviewed Vitals intake output medications were reviewed Past medical history: Reviewed Family, social history: Reviewed Allergies: Reviewed Physical examination General: No acute distress/ intubated Vitals: Reviewed HEENT: Oral mucosa moist no icterus Neck: Supple no thyromegaly nodular mass or JVD Chest: bilateral basilar crackles Heart: Regular rate and rhythm S1-S2 heard no S3-S4 Abdomen: Soft nontender no suprapubic masses no organomegaly Extremity: Dry skin less than 1+ edema Psych: No evidence of any agitation and aggression noted Derm: No petechial rash Assessment and plan: Acute kidney injury patient's baseline creatinine is unclear, creatinine was 1.9 on 05/03/2019 current creatinine is around 3.2 stable since yesterday potassium is 4.2 bicarbonate 28 Admitted with severe respiratory failure oxygen saturation was down to 28% with heart rate in 50s, has been intubated and resuscitated since was also noted to have pulmonary edema Creatinine upon admission was 1.8 to begin with Hypernatremia has improved sodium is currently around 145 which was 151 2 days ago Urinalysis showed evidence of 33 white blood cells 8 red blood cells less than 15 mg protein in the urine Will order for dedicated ultrasonogram of the kidney Possibility of renal replacement cannot be completely excluded at this time patient does have some risk factors for underlying chronic kidney disease Hypertension blood pressure currently 140-150 range mild tachycardia Patient noted to be febrile 101.4 Blood cultures have been negative as of 05/03/2019 renal prognosis: Guarded We'll continue to follow and make recommendation from renal standpoint Objective - Vital Signs Vital signs: Vital Signs - 12hr 05/07/19 05/07/19 05/07/19 01:00 01:10 01:15 Temperature Pulse Rate 122 H 104 H 104 H Respiratory 16 22 24 Rate Blood Pressure 162/78 146/62 O2 Sat by Pulse 87 96 95 Oximetry 05/07/19 05/07/19 05/07/19 01:30 01:45 02:00 Temperature Pulse Rate 97 H 97 H 103 H Respiratory 22 22 18 Rate Blood Pressure 142/59 137/63 146/62 O2 Sat by Pulse 96 96 94 Oximetry 05/07/19 05/07/19 05/07/19 02:16 02:30 02:45 Temperature Pulse Rate 121 H 105 H 103 H Respiratory 22 22 22 Rate Blood Pressure 164/85 149/74 148/72 O2 Sat by Pulse 75 L 90 92 Oximetry 05/07/19 05/07/19 05/07/19 03:00 03:15 03:30 Temperature 100.5 F H Pulse Rate 102 H 104 H 100 H Respiratory 22 22 22 Rate Blood Pressure 162/65 151/67 139/63 O2 Sat by Pulse 95 95 96 Oximetry 05/07/19 05/07/19 05/07/19 03:40 03:45 04:00 Temperature Pulse Rate 103 H 96 H 97 H Respiratory 22 22 22 Rate Blood Pressure 136/62 150/63 O2 Sat by Pulse 96 98 97 Oximetry 05/07/19 05/07/19 05/07/19 04:15 04:30 04:45 Temperature Pulse Rate 98 H 97 H 99 H Respiratory 22 22 22 Rate Blood Pressure 149/65 135/62 144/62 O2 Sat by Pulse 98 95 97 Oximetry 05/07/19 05/07/19 05/07/19 05:00 05:15 05:30 Temperature Pulse Rate 113 H 121 H 123 H Respiratory 22 22 19 Rate Blood Pressure 144/62 162/72 166/73 O2 Sat by Pulse 79 L 76 L 83 L Oximetry 05/07/19 05/07/19 05/07/19 05:45 05:50 06:00 Temperature Pulse Rate 125 H 125 H 118 H Respiratory 18 22 22 Rate Blood Pressure 164/82 174/78 O2 Sat by Pulse 91 96 91 Oximetry 05/07/19 05/07/19 05/07/19 06:15 06:30 08:00 Temperature 101.4 F H Pulse Rate 107 H 103 H 95 H Respiratory 21 22 Rate Blood Pressure 148/57 145/58 145/66 O2 Sat by Pulse 89 92 92 Oximetry 05/07/19 05/07/19 09:54 12:05 Temperature Pulse Rate 119 H 94 H Respiratory Rate Blood Pressure 159/74 O2 Sat by Pulse 92 Oximetry - Lab 05/07/19 09:35 05/07/19 09:35 Most recent lab results ABG pH 7.403 pH Units (7.350-7.450) 05/02/19 16:05 ABG pCO2 52.3 mm Hg 05/02/19 16:05 ABG pO2 66.6 mm Hg (80.0-90.0) L 05/02/19 16:05 ABG HCO3 31.9 mmol/L (20.0-26.0) H 05/02/19 16:05 ABG O2 Saturation 92.5 % (95.0-99.0) L 05/02/19 16:05 Calcium 7.9 mg/dL (8.4-10.2) L 05/07/19 09:35 Phosphorus 4.90 mg/dL (2.5-4.5) H 05/02/19 00:06 Magnesium 2.30 mg/dL (1.7-2.3) 05/02/19 00:06 Medications & Allergies - Medications Allergies/Adverse Reactions: Allergies No Known Allergies Allergy (Verified 05/01/19 20:27) Home Medications: Home Medications Medication Instructions Recorded Confirmed Last Taken Type No Known Home Medications [No 05/03/19 05/03/19 Unknown History Reported Home Medications] Active Medications: Generic Name Dose Route Start Last Admin Trade Name Freq PRN Reason Stop Dose Admin Acetaminophen 650 mg 05/01/19 22:46 05/06/19 13:00 Tylenol PO 650 mg Q4H PRN Administration Pain MILD(1-3)/Fever >100.5/FREEMAN Acetaminophen 650 mg 05/07/19 12:00 Tylenol PO Q6HR VICKEY Dextrose 50 gm 05/01/19 20:24 D50w (25gm) Vial IV Q30MIN PRN Hypoglycemia Protocol Enoxaparin Sodium 30 mg 05/05/19 10:00 05/07/19 09:52 Enoxaparin SUB-Q 30 mg QDAY VICKEY Administration Famotidine 20 mg 05/05/19 10:00 05/07/19 09:53 Pepcid PO 20 mg DAILY VICKEY Administration Fludrocortisone Acetate 0.1 mg 05/05/19 11:00 05/07/19 09:56 Florinef PO 0.1 mg QDAY VICKEY Administration Hydrophilic Ointment 1 applic 05/01/19 21:14 Vaseline Lip Therapy TP Q2HR PRN Dry Lips Fentanyl Citrate 2,000 mcg in 100 mls @ 10.195 mls/hr 05/01/19 22:00 05/07/19 09:00 Fentanyl Drip Premix IV 3 mcg/kg/hr TITR VICKEY 30.585 mls/hr Administration Protocol 1 MCG/KG/HR Propofol 1,000 mg in 100 mls @ 7.011 mls/hr 05/03/19 04:00 05/05/19 07:36 Diprivan 10 Mg/Ml IV 0 mcg/kg/min TITR VICKEY 0 mls/hr Titration Protocol 5 MCG/KG/MIN Metronidazole 500 mg in 100 mls @ 100 mls/hr 05/03/19 14:00 05/07/19 06:45 Flagyl 500 Mg/100 Ml IV Infused Q8HR VICKEY Infusion Protocol Norepinephrine 4 mg in 250 mls @ 7.5 mls/hr 05/03/19 18:00 Levophed Drip 4 Mg/Ns 250 Ml IV TITR VICKEY Protocol 2 MCG/MIN Dextrose/Sodium Chloride 1,000 mls @ 125 mls/hr 05/05/19 12:00 05/07/19 05:49 D5/0.45ns IV 125 mls/hr DIRECT VICKEY Administration Cefepime HCl 2 gm in 100 mls @ 200 mls/hr 05/06/19 11:00 05/07/19 09:53 Cefepime/Ns 2 Gm/100 Ml IV 200 mls/hr Q24HR VICKEY Administration Protocol Sodium Chloride 500 mls @ 10 mls/hr 05/06/19 15:00 Nacl 0.9% 500 Ml IV DIRECT VICKEY Vancomycin HCl 1,750 mg/ 535 mls @ 333.333 mls/hr 05/07/19 13:00 Sodium Chloride IV 05/07/19 14:36 ONCE ONE Lorazepam 2 mg 05/06/19 06:22 05/07/19 02:10 Ativan IV 2 mg Q4H PRN Administration Seizures Metoprolol Tartrate 25 mg 05/02/19 04:00 05/07/19 09:54 Metoprolol PO 25 mg BID VICKEY Administration Multi-Ingred Cream/Lotion/Oil/Oint 1 applic 05/01/19 21:14 Artificial Tears Ophth Oint OU Q4HR PRN Dry Eye(s) Ondansetron HCl 4 mg 05/01/19 22:46 Zofran IV Q8H PRN Nausea And Vomiting Sodium Chloride 10 ml 05/02/19 10:00 05/07/19 09:57 Sodium Chloride Flush Syringe 10 Ml IV 10 ml BID VICKEY Administration Sodium Chloride 10 ml 05/01/19 22:46 05/05/19 02:28 Sodium Chloride Flush Syringe 10 Ml IV 10 ml PRN PRN Administration LINE FLUSH
[2019-05-07] MEDS ORDERED: VANCOMYCIN 1,750 MG in SODIUM CHLORIDE 0.9% 500 ML 500 ML IV ONE (13:00)
[2019-05-07 14:26] LABS: Hepatitis B Surface Antigen Non-Reactive (Negative); Hepatitis C Virus Antibody Non-Reactive (NonReactive)
--- NOTE | 2019-05-07 17:27 | Progress Note ---
Assessment and Plan Cultures: Blood cultures: no growth thus far Sputum culture: no growth thus far urine culture: no growth A/P: 34-year-old male with obesity admitted with: #Fever, SIRS: Patient was afebrile for the first 2 days of hospitalization, then he developed a fever of 101.2F. ?aspiration related. Apparently was using CPAP. Now febrile again, ?UTI. UA showed pyuria, has indwelling Berkowitz. Urine culture with no growth. #Acute hypoxic hypercapneic respiratory failure, possibly obesity hypovent ilation syndrome: on the vent. Pulmonary managing. #Morbid obesity #CARLA: creatinine elevated. dose abx accordingly. #Elevated LFTs: RUQ US showed fatty liver, small GB sludge. Improving. #Acute encephalopathy with ?seizure activity: persistent fevers. Agree with possible meningitis coverage, discussed with Dr. Chen. Recs: empiric meningitis coverage with Ceftriaxone, Vancomycin Flagyl discontinued Acyclovir also added, renally adjusted When feasible LP and possible MRI brain (though may be limited due to patient's weight) Burke Wilks MD, FACP [facility] ([facility] C: [phone] O: [phone] F: [phone] Subjective Date of service: 05/07/19 Principal diagnosis: HF; acute hypoxemic resp failure, SIRS, CARLA Interval history: Persistently febrile. Noted to have ?seizure like activity per my discussion with Dr. Chen. Vancomycin was added. Remains intubated, sedated, high vent requirements. Objective - Exam Narrative Exam: Physical Exam: Constitutional: sedated, intubated. Morbid obesity Head, Ears, Nose: Normocephalic, atraumatic. External ears, nose normal Eyes: Conjunctivae/corneas clear. No icterus. No ptosis. Neck: intubated Oral: intubated Cardiovascular: S1, S2 normal. Respiratory: Good air entry, clear to auscultation bilaterally GI: Soft, non-tender; bowel sounds normal. No peritoneal signs Musculoskeletal: No pedal edema, no cyanosis. Skin: No rash or abscess Hem/Lymphatic: No palpable cervical or supraclavicular nodes. No lymphangitis Psych: no agitation Neurological: sedated, intubated, on vent - Constitutional Vitals: Vital Signs Temp Pulse Resp BP Pulse Ox 99.9 F H 112 H 22 167/74 92 05/07/19 16:00 05/07/19 16:00 05/07/19 06:30 05/07/19 16:00 05/07/19 16:00 Temperature -Last 24 Hours Temperature 99.9 F Temperature 101.2 F Temperature 101.4 F Temperature 100.5 F Temperature 99.7 F Temperature 101.9 F - Labs CBC & Chem 7: 05/07/19 09:35 05/07/19 09:35 Labs: Abnormal lab results 05/06/19 05/06/19 05/07/19 Range/Units 18:34 23:16 05:22 WBC (4.5-11.0) K/mm3 Hgb (11.8-15.2) gm/dl MCH (28-32) pg MCHC (32-34) % RDW (13.2-15.2) % POC ABG pH (7.35-7.45) POC ABG pO2 (80-105) BUN (9-20) mg/dL Creatinine (0.8-1.5) mg/dL Glucose (75-100) mg/dL POC Glucose 128 H 143 H 166 H (70-105) Uric Acid (3.5-7.6) mg/dL Calcium (8.4-10.2) mg/dL 05/07/19 05/07/19 05/07/19 Range/Units 06:33 07:03 09:35 WBC (4.5-11.0) K/mm3 Hgb (11.8-15.2) gm/dl MCH (28-32) pg MCHC (32-34) % RDW (13.2-15.2) % POC ABG pH 7.263 L 7.288 L (7.35-7.45) POC ABG pO2 51 L 56 L (80-105) BUN 76 H (9-20) mg/dL Creatinine 3.2 H (0.8-1.5) mg/dL Glucose 147 H (75-100) mg/dL POC Glucose (70-105) Uric Acid (3.5-7.6) mg/dL Calcium 7.9 L (8.4-10.2) mg/dL 05/07/19 05/07/19 05/07/19 Range/Units 09:35 12:17 13:45 WBC 13.4 H (4.5-11.0) K/mm3 Hgb 11.6 L (11.8-15.2) gm/dl MCH 27 L (28-32) pg MCHC 31 L (32-34) % RDW 17.5 H (13.2-15.2) % POC ABG pH (7.35-7.45) POC ABG pO2 (80-105) BUN (9-20) mg/dL Creatinine (0.8-1.5) mg/dL Glucose (75-100) mg/dL POC Glucose 130 H (70-105) Uric Acid 18.0 H (3.5-7.6) mg/dL Calcium (8.4-10.2) mg/dL - Imaging and cardiology Chest x-ray: report reviewed, image reviewed (no interval worsening)
--- NOTE | 2019-05-07 17:56 | Progress Note ---
Assessment and Plan Assessment and plan: 34-year-old man who is morbidly obese with unknown medical problem was brought to the emergency room with complaints of shortness of breath and difficulty sleeping. History is per the chart, nurse reported that his saturation dropped to 28%, heart rate in the 50s, she checked on them, he was cyanotic and was subsequently intubated and recieved 2 rounds of epinephrine. Cardiac arrest. * Discussed with pulmonary, patient remains with sat of 88% despite ventilatory and oxygen, PEEP measures. will continue to attempt to drop FIO2 if patient tolerates * Diuresis held due to renal function worsening, appears to be improving today * still with fever * per ID empiric meningitis coverage with Ceftriaxone, Vancomycin * Flagyl discontinued * Acyclovir also added, renally adjusted * When feasible LP and possible MRI brain (though may be limited due to patient's weight) s/p Cardiac arrest Resuscitated cardiology consulted, following Acute hypoxic respiratory failure Status post intubation, continue sedation, consulted pulmonary Acute CHF, new onset, Diurese with IV lasix held, monitor I/O, daily weights Cardiology following. Added beta-jenny, no TIM inhibitor secondary to renal insufficiency Hypertension malignant Start antihypertensive, monitor blood pressure IV hydralazine as needed for further control Acute kidney injury due to ATN Worsening Nephrology following Hyperkalemia kayexalate today repeat potassium in am Fever due to SIRS versus Sepsis Consulted ID, following On empiric antibiotics Leukocytosis: SIRS versus Sepsis DVT prophylaxis with Lovenox Morbid obesity Full code status. Prognosis guarded The high probability of a clinically significant, sudden or life threatening deterioration of the [cardiovascular, Pulmonary, renal, neurological] system(s) required my full and direct attention, intervention and personal management. The aggregate critical care time was [35] minutes. This time is in addition to time spent performing reported procedures but includes the following: [x] Data Review and interpretation [x] Patient assessment and monitoring of vital signs [x] Documentation [x] Medication orders and management History Interval history: Patient seen and examined, remains on full ventilatory support Hospitalist Physical - Physical exam Narrative exam: Gen: Not in acute distress,intubated, on vent, morbidly obese HEENT: Normocephalic, atraumatic, short and large neck circumference Neck: supple, no JVD Heart: S1 and S2 reg, no murmurs, rubs or gallop Lungs: Clear to auscultation bilaterally, no wheeze Abd: soft, NT, non distended, normal bowel sounds Ext:No edema, no cyanosis Neuro: Intubated,sedated - Constitutional Vitals: Temp Pulse Resp BP Pulse Ox 99.9 F H 112 H 22 167/74 92 05/07/19 16:00 05/07/19 16:00 05/07/19 06:30 05/07/19 16:00 05/07/19 16:00 General appearance: Present: no acute distress Results - Labs CBC & Chem 7: 05/07/19 09:35 05/07/19 09:35 Labs: Laboratory Last Values WBC 13.4 K/mm3 (4.5-11.0) H 05/07/19 09:35 RBC 4.26 M/mm3 (3.65-5.03) 05/07/19 09:35 Hgb 11.6 gm/dl (11.8-15.2) L 05/07/19 09:35 Hct 37.6 % (35.5-45.6) 05/07/19 09:35 MCV 88 fl (84-94) 05/07/19 09:35 MCH 27 pg (28-32) L 05/07/19 09:35 MCHC 31 % (32-34) L 05/07/19 09:35 RDW 17.5 % (13.2-15.2) H 05/07/19 09:35 Plt Count 216 K/mm3 (140-440) 05/07/19 09:35 Lymph % (Auto) 7.9 % (13.4-35.0) L 05/05/19 05:00 [place] % (Auto) 10.2 % (0.0-7.3) H 05/05/19 05:00 Eos % (Auto) 0.6 % (0.0-4.3) 05/05/19 05:00 Baso % (Auto) 0.5 % (0.0-1.8) 05/05/19 05:00 Lymph # 1.0 K/mm3 (1.2-5.4) L 05/05/19 05:00 [place] # 1.2 K/mm3 (0.0-0.8) H 05/05/19 05:00 Eos # 0.1 K/mm3 (0.0-0.4) 05/05/19 05:00 Baso # 0.1 K/mm3 (0.0-0.1) 05/05/19 05:00 Seg Neutrophils % 80.8 % (40.0-70.0) H 05/05/19 05:00 Seg Neutrophils # 9.7 K/mm3 (1.8-7.7) H 05/05/19 05:00 PT 15.4 Sec. (12.2-14.9) H 05/01/19 Unknown INR 1.23 (0.87-1.13) H 05/01/19 Unknown APTT 22.7 Sec. (24.2-36.6) L 05/01/19 Unknown POC ABG pH 7.288 (7.35-7.45) L 05/07/19 07:03 ABG pH 7.403 pH Units (7.350-7.450) 05/02/19 16:05 POC ABG pCO2 62.4 (35-45) H 05/06/19 03:58 ABG pCO2 52.3 mm Hg 05/02/19 16:05 POC ABG pO2 56 (80-105) L 05/07/19 07:03 ABG pO2 66.6 mm Hg (80.0-90.0) L 05/02/19 16:05 POC ABG HCO3 34.1 (22-26 mml/L) 05/07/19 07:03 ABG HCO3 31.9 mmol/L (20.0-26.0) H 05/02/19 16:05 POC ABG Total CO2 36 (23-27mmol/L) 05/07/19 07:03 POC ABG O2 Sat 83 05/07/19 07:03 ABG O2 Saturation 92.5 % (95.0-99.0) L 05/02/19 16:05 ABG O2 Content 16.9 (0.0-44) 05/02/19 16:05 POC ABG Base Excess 8 ((-2) - (+3)mmol/L) 05/07/19 07:03 ABG Base Excess 5.8 mmol/L (-2.0-3.0) H 05/02/19 16:05 ABG Hemoglobin 13.3 gm/dl (14.0-18.0) L 05/02/19 16:05 ABG Carboxyhemoglobin 1.6 % (0.0-5.0) 05/02/19 16:05 ABG Methemoglobin 0.6 % (0.0-1.5) 05/02/19 16:05 Oxyhemoglobin 90.6 % (95.0-99.0) L 05/02/19 16:05 FiO2 65 % 05/07/19 07:03 Sodium 145 mmol/L (137-145) 05/07/19 09:35 Potassium 4.2 mmol/L (3.6-5.0) 05/07/19 09:35 Chloride 102.5 mmol/L (98-107) 05/07/19 09:35 Carbon Dioxide 28 mmol/L (22-30) 05/07/19 09:35 Anion Gap 19 mmol/L 05/07/19 09:35 BUN 76 mg/dL (9-20) H 05/07/19 09:35 Creatinine 3.2 mg/dL (0.8-1.5) H 05/07/19 09:35 Estimated GFR 27 ml/min 05/07/19 09:35 BUN/Creatinine Ratio 24 % 05/07/19 09:35 Glucose 147 mg/dL (75-100) H 05/07/19 09:35 POC Glucose 130 (70-105) H 05/07/19 12:17 Osmolality 327 Mosm/kg 05/07/19 13:45 Uric Acid 18.0 mg/dL (3.5-7.6) H 05/07/19 13:45 Calcium 7.9 mg/dL (8.4-10.2) L 05/07/19 09:35 Phosphorus 4.90 mg/dL (2.5-4.5) H 05/02/19 00:06 Magnesium 2.30 mg/dL (1.7-2.3) 05/02/19 00:06 Total Bilirubin 0.40 mg/dL (0.1-1.2) 05/05/19 05:00 AST 93 units/L (5-40) H 05/05/19 05:00 ALT 65 units/L (7-56) H 05/05/19 05:00 Alkaline Phosphatase 70 units/L (35-129) 05/05/19 05:00 Total Creatine Kinase 131 units/L (55-170) 05/02/19 04:41 CK-MB (CK-2) 5.2 ng/mL (0.0-4.0) H 05/02/19 04:41 CK-MB (CK-2) Rel Index 3.9 (0-4) 05/02/19 04:41 Troponin T 0.067 ng/mL (0.00-0.029) H D 05/02/19 04:41 NT-Pro-B Natriuret Pep 6831 pg/mL (0-450) H 05/01/19 Unknown Total Protein 6.9 g/dL (6.3-8.2) 05/05/19 05:00 Albumin 2.9 g/dL (3.9-5) L 05/05/19 05:00 Albumin/Globulin Ratio 0.7 % 05/05/19 05:00 Triglycerides 182 mg/dL (2-149) H 05/02/19 00:06 Cholesterol 173 mg/dL (50-199) 05/02/19 00:06 LDL Cholesterol Direct 126 mg/dL (50-130) 05/02/19 00:06 HDL Cholesterol 18 mg/dL (40-59) L 05/02/19 00:06 Cholesterol/HDL Ratio 9.61 % 05/02/19 00:06 Procalcitonin 0.54 ng/mL (<0.15) 05/03/19 11:52 Urine Color Yellow (Yellow) 05/03/19 10:55 Urine Turbidity Turbid (Clear) 05/03/19 10:55 Urine pH 5.0 (5.0-7.0) 05/03/19 10:55 Ur Specific [place] 1.014 (1.003-1.030) 05/03/19 10:55 Urine Protein <15 mg/dl mg/dL (Negative) 05/03/19 10:55 Urine Glucose (UA) Neg mg/dL (Negative) 05/03/19 10:55 Urine Ketones Neg mg/dL (Negative) 05/03/19 10:55 Urine Blood Lg (Negative) 05/03/19 10:55 Urine Nitrite Neg (Negative) 05/03/19 10:55 Urine Bilirubin Neg (Negative) 05/03/19 10:55 Urine Urobilinogen < 2.0 mg/dL (<2.0) 05/03/19 10:55 Ur Leukocyte Esterase Mod (Negative) 05/03/19 10:55 Urine WBC (Auto) 33.0 /HPF (0.0-6.0) H 05/03/19 10:55 Urine RBC (Auto) 8.0 /HPF (0.0-6.0) 05/03/19 10:55 Urine Bacteria (Auto) 1+ /HPF (Negative) 05/03/19 10:55 Uric Acid Crystals 3+ 05/03/19 10:55 Urine Mucus Few /HPF 05/03/19 10:55 Hepatitis A IgM Ab Non-reactive (NonReactive) 05/07/19 13:45 Hep Bs Antigen Non-reactive (Negative) 05/07/19 13:45 Hep B Core IgM Ab Non-reactive (NonReactive) 05/07/19 13:45 Hepatitis C Antibody Non-reactive (NonReactive) 05/07/19 13:45 Active Medications - Current Medications Current Medications: Generic Name Dose Route Start Last Admin Trade Name Freq PRN Reason Stop Dose Admin Acetaminophen 650 mg 05/01/19 22:46 05/06/19 13:00 Tylenol PO 650 mg Q4H PRN Administration Pain MILD(1-3)/Fever >100.5/FREEMAN Acetaminophen 650 mg 05/07/19 12:00 05/07/19 12:00 Tylenol PO 650 mg Q6HR VICKEY Administration Dextrose 50 gm 05/01/19 20:24 D50w (25gm) Vial IV Q30MIN PRN Hypoglycemia Protocol Enoxaparin Sodium 30 mg 05/05/19 10:00 05/07/19 09:52 Enoxaparin SUB-Q 30 mg QDAY VICKEY Administration Famotidine 20 mg 05/05/19 10:00 05/07/19 09:53 Pepcid PO 20 mg DAILY VICKEY Administration Fludrocortisone Acetate 0.1 mg 05/05/19 11:00 05/07/19 09:56 Florinef PO 0.1 mg QDAY VICKEY Administration Hydrophilic Ointment 1 applic 05/01/19 21:14 Vaseline Lip Therapy TP Q2HR PRN Dry Lips Fentanyl Citrate 2,000 mcg in 100 mls @ 10.195 mls/hr 05/01/19 22:00 05/07/19 12:10 Fentanyl Drip Premix IV 3 mcg/kg/hr TITR VICKEY 30.585 mls/hr Administration Protocol 1 MCG/KG/HR Propofol 1,000 mg in 100 mls @ 7.011 mls/hr 05/03/19 04:00 05/05/19 07:36 Diprivan 10 Mg/Ml IV 0 mcg/kg/min TITR VICKEY 0 mls/hr Titration Protocol 5 MCG/KG/MIN Norepinephrine 4 mg in 250 mls @ 7.5 mls/hr 05/03/19 18:00 Levophed Drip 4 Mg/Ns 250 Ml IV TITR VICKEY Protocol 2 MCG/MIN Dextrose/Sodium Chloride 1,000 mls @ 125 mls/hr 05/05/19 12:00 05/07/19 05:49 D5/0.45ns IV 125 mls/hr DIRECT VICKEY Administration Sodium Chloride 500 mls @ 10 mls/hr 05/06/19 15:00 Nacl 0.9% 500 Ml IV DIRECT VICKEY Ceftriaxone Sodium 2 gm in 100 mls @ 200 mls/hr 05/07/19 22:00 Rocephin/Ns 2 Gm/100 Ml IV Q12HR VICKEY Protocol Acyclovir 1,140 mg/ Sodium 122.8 mls @ 100 mls/hr 05/07/19 22:00 Chloride IV Q12HR VICKEY Protocol Lorazepam 2 mg 05/06/19 06:22 05/07/19 13:09 Ativan IV 2 mg Q4H PRN Administration Seizures Metoprolol Tartrate 25 mg 05/02/19 04:00 05/07/19 09:54 Metoprolol PO 25 mg BID VICKEY Administration Multi-Ingred Cream/Lotion/Oil/Oint 1 applic 05/01/19 21:14 Artificial Tears Ophth Oint OU Q4HR PRN Dry Eye(s) Ondansetron HCl 4 mg 05/01/19 22:46 Zofran IV Q8H PRN Nausea And Vomiting Sodium Chloride 10 ml 05/02/19 10:00 05/07/19 09:57 Sodium Chloride Flush Syringe 10 Ml IV 10 ml BID VICKEY Administration Sodium Chloride 10 ml 05/01/19 22:46 05/05/19 02:28 Sodium Chloride Flush Syringe 10 Ml IV 10 ml PRN PRN Administration LINE FLUSH Nutrition/Malnutrition Assess - Dietary Evaluation Nutrition/Malnutrition Findings: Nutrition Notes Start: 05/04/19 12:54 Freq: Status: Active Protocol: Document 05/07/19 09:55 DW (Rec: 05/07/19 09:59 DW [id number]) Co-Sign 05/07/19 09:55 LP Nutrition Notes Initial or Follow up Reassessment Current Diagnosis Acute Kidney Injury,Sepsis, Respiratory Failure Current Diet Nepro 1.8 at 60ml/hr Labs/Tests Na 145 BUN 76 Cr 3.2 Glu 147 Pertinent Medications Levophed Enaxoprine Height 6 ft 4 in Weight 227.5 kg [place] Body Weight (kg) 91.81 BMI 61.0 Weight Status Morbidly Obese Subjective/Other Information FU TF tolerance Noticed Nepro 1.8 running at goal of 50ml/hr Percent of energy/protein needs met: 86%/43% Burn Absent Trauma Absent Current % PO Negligible Minimum of two criteria No physical signs of malnutrition #1 Nutrition Diagnosis Inadequate oral intake Diagnosis Progress(for reassessment Continues documentation) Is patient on ventilator? Yes Is Patient Ambulatory and/or Out of Bed No REE-([facility]-confined to bed) 3986.244 Kcal/Kg value to use for calculation 11 Approximate Energy Requirements Using 2503 kcal/Kg Calculation Used for Recommendations Kcal/kg Additional Notes PRO needs: 225 g (up to 2.5 g/ kg 91.81 IBW) Fluid needs: 1 ml/kcal Nutrition Intervention Change Diet Order: Continue TF Nutrition Support: Nepro 1.8 at 50 ml/hr 250 ml flush q4h Kcal 2,160 Protein (gm) 97 Fluid (mL) 872 Goal #1 TF tolerance Goal #2 Meet at least 75% kcal/PRO needs via TF Anticipated Discharge Needs: Unable to determine at this time Follow-Up By: 05/14/19 Additional Comments FU TF tolerance
[2019-05-07] MEDS: ACYCLOVIR IV SCH (22:25)
[2019-05-07] MEDS: cefTRIAXone/NS 2 GM/100 ML 2 GM/100 ML BAG IV SCH (22:25)
[2019-05-07] MEDS: SODIUM CHLORIDE 0.9% IV SCH (22:25)
[2019-05-08 00:56] LABS: Creatinine,Urine 292.8 mg/dL (0.1-20.0)
[2019-05-08] MEDS: fentaNYL DRIP Premix 2,000 MCG/100 ML BAG IV SCH ×8 (01:45→21:18)
--- NOTE | 2019-05-08 03:15 | XRay Report ---
CHEST 1 VIEW INDICATION / CLINICAL INFORMATION: follow up respiratory failure. COMPARISON: 05/07/2019 FINDINGS: SUPPORT DEVICES: NG tube is in place as well as endotracheal tube. PICC line remains on the right as well. HEART / MEDIASTINUM: Slightly enlarged but stable. LUNGS / PLEURA: There is worsening perihilar lung consolidation with right upper lobe density likely volume loss. No pneumothorax. ADDITIONAL FINDINGS: No significant additional findings. IMPRESSION: 1 Worsening chest Signer Name: Arsenio Banda MD Signed: 05/08/2019 3:11 AM Workstation Name: [id number]
[2019-05-08] MEDS: LORazepam 2 MG/ML VIAL IV PRN ×3 (05:48→22:18)
[2019-05-08] MEDS: D5W/0.45% NACL 1,000 ML IV SCH ×2 (05:50→23:15)
--- NOTE | 2019-05-08 08:52 | Progress Note ---
Assessment and Plan Assessment and plan: 34-year-old man who is morbidly obese with unknown medical problem was brought to the emergency room with complaints of shortness of breath and difficulty sleeping. History is per the chart, nurse reported that his saturation dropped to 28%, heart rate in the 50s, she checked on them, he was cyanotic and was subsequently intubated and recieved 2 rounds of epinephrine. Cardiac arrest. * Discussed with pulmonary, Some improvement in saturation to the 90% range. Remains on 70% FIO2 and 20 PEEP * Diuresis held due to renal function worsening, appears to be improving today * still with fever * per ID empiric meningitis coverage with Ceftriaxone, Vancomycin * Flagyl discontinued * Acyclovir also added, renally adjusted * When feasible LP and possible MRI brain (though may be limited due to patient's weight) Blood cultures: no growth thus far Sputum culture: no growth thus far urine culture: no growth s/p Cardiac arrest Resuscitated cardiology consulted, following Acute hypoxic and hypercapenic respiratory failure Status post intubation, continue sedation, consulted pulmonary And input noted "continue to wean FiO2 for sats >88% and or PaO2 of greater than 55. Do not wean PEEP until FiO2 is a 50% or lower. Permissive hypercapnea is ok as long as pH is not lower than 7.2" Obesity Hypoventilation syndrome Sepsis- not present on admission -On abx, ID following. LP when able ?seizure activity -Meninigitis prophy -Neurology consult -EEG Acute CHF, new onset, Diurese with IV lasix held, monitor I/O, daily weights Cardiology following. Added beta-jenny, no TIM inhibitor secondary to renal insufficiency Hypertension malignant Start antihypertensive, monitor blood pressure IV hydralazine as needed for further control Acute kidney injury due to ATN now plateaued in the 3 range for creatnine Nephrology following and input noted. Berkowitz for strict I/Os Hyperkalemia-Resolved Passive congestive hepatic syndrome -LFT elevated but trending down -Noted Gallbladder sludge DVT prophylaxis with Lovenox Morbid obesity Full code status. Prognosis guarded No family present The high probability of a clinically significant, sudden or life threatening deterioration of the [cardiovascular, Pulmonary, renal, neurological] system(s) required my full and direct attention, intervention and personal management. The aggregate critical care time was [35] minutes. This time is in addition to time spent performing reported procedures but includes the following: [x] Data Review and interpretation [x] Patient assessment and monitoring of vital signs [x] Documentation [x] Medication orders and management History Interval history: Patient seen and examined, remains on full ventilatory support, on fentanly but still moves, no indication from my conversation with Nursing staff that the patient follows commands. Remains oliguric per staff, No family present. Did have a BM this morning. Hospitalist Physical - Physical exam Narrative exam: Gen: Not in acute distress, intubated, on fentanyl, no evidence of vent-patient dyschronny on vent, morbidly obese HEENT: Normocephalic, atraumatic, short and large neck circumference Neck: supple, no JVD Heart: S1 and S2 reg, no murmurs, rubs or gallop Lungs: Clear to auscultation bilaterally, no wheeze Abd: soft, NT, non distended, normal bowel sounds Ext:No edema, no cyanosis Neuro: Intubated, sedated - Constitutional Vitals: Temp Pulse Resp BP Pulse Ox 98.7 F 88 21 146/75 87 05/08/19 08:00 05/08/19 08:00 05/08/19 08:00 05/08/19 08:00 05/08/19 08:00 General appearance: Present: no acute distress Results - Labs CBC & Chem 7: 05/07/19 09:35 05/07/19 09:35 Labs: Laboratory Last Values WBC 13.4 K/mm3 (4.5-11.0) H 05/07/19 09:35 RBC 4.26 M/mm3 (3.65-5.03) 05/07/19 09:35 Hgb 11.6 gm/dl (11.8-15.2) L 05/07/19 09:35 Hct 37.6 % (35.5-45.6) 05/07/19 09:35 MCV 88 fl (84-94) 05/07/19 09:35 MCH 27 pg (28-32) L 05/07/19 09:35 MCHC 31 % (32-34) L 05/07/19 09:35 RDW 17.5 % (13.2-15.2) H 05/07/19 09:35 Plt Count 216 K/mm3 (140-440) 05/07/19 09:35 Lymph % (Auto) 7.9 % (13.4-35.0) L 05/05/19 05:00 [place] % (Auto) 10.2 % (0.0-7.3) H 05/05/19 05:00 Eos % (Auto) 0.6 % (0.0-4.3) 05/05/19 05:00 Baso % (Auto) 0.5 % (0.0-1.8) 05/05/19 05:00 Lymph # 1.0 K/mm3 (1.2-5.4) L 05/05/19 05:00 [place] # 1.2 K/mm3 (0.0-0.8) H 05/05/19 05:00 Eos # 0.1 K/mm3 (0.0-0.4) 05/05/19 05:00 Baso # 0.1 K/mm3 (0.0-0.1) 05/05/19 05:00 Seg Neutrophils % 80.8 % (40.0-70.0) H 05/05/19 05:00 Seg Neutrophils # 9.7 K/mm3 (1.8-7.7) H 05/05/19 05:00 PT 15.4 Sec. (12.2-14.9) H 05/01/19 Unknown INR 1.23 (0.87-1.13) H 05/01/19 Unknown APTT 22.7 Sec. (24.2-36.6) L 05/01/19 Unknown POC ABG pH 7.429 (7.35-7.45) 05/08/19 05:32 ABG pH 7.403 pH Units (7.350-7.450) 05/02/19 16:05 POC ABG pCO2 45.4 (35-45) H 05/08/19 05:32 ABG pCO2 52.3 mm Hg 05/02/19 16:05 POC ABG pO2 64 (80-105) L 05/08/19 05:32 ABG pO2 66.6 mm Hg (80.0-90.0) L 05/02/19 16:05 POC ABG HCO3 30.1 (22-26 mml/L) 05/08/19 05:32 ABG HCO3 31.9 mmol/L (20.0-26.0) H 05/02/19 16:05 POC ABG Total CO2 31 (23-27mmol/L) 05/08/19 05:32 POC ABG O2 Sat 93 05/08/19 05:32 ABG O2 Saturation 92.5 % (95.0-99.0) L 05/02/19 16:05 ABG O2 Content 16.9 (0.0-44) 05/02/19 16:05 POC ABG Base Excess 6 ((-2) - (+3)mmol/L) 05/08/19 05:32 ABG Base Excess 5.8 mmol/L (-2.0-3.0) H 05/02/19 16:05 ABG Hemoglobin 13.3 gm/dl (14.0-18.0) L 05/02/19 16:05 ABG Carboxyhemoglobin 1.6 % (0.0-5.0) 05/02/19 16:05 ABG Methemoglobin 0.6 % (0.0-1.5) 05/02/19 16:05 Oxyhemoglobin 90.6 % (95.0-99.0) L 05/02/19 16:05 FiO2 70 % 05/08/19 05:32 Sodium 145 mmol/L (137-145) 05/07/19 09:35 Potassium 4.2 mmol/L (3.6-5.0) 05/07/19 09:35 Chloride 102.5 mmol/L (98-107) 05/07/19 09:35 Carbon Dioxide 28 mmol/L (22-30) 05/07/19 09:35 Anion Gap 19 mmol/L 05/07/19 09:35 BUN 76 mg/dL (9-20) H 05/07/19 09:35 Creatinine 3.2 mg/dL (0.8-1.5) H 05/07/19 09:35 Estimated GFR 27 ml/min 05/07/19 09:35 BUN/Creatinine Ratio 24 % 05/07/19 09:35 Glucose 147 mg/dL (75-100) H 05/07/19 09:35 POC Glucose 148 (70-105) H 05/08/19 05:06 Osmolality 327 Mosm/kg 05/07/19 13:45 Uric Acid 18.0 mg/dL (3.5-7.6) H 05/07/19 13:45 Calcium 7.9 mg/dL (8.4-10.2) L 05/07/19 09:35 Phosphorus 4.90 mg/dL (2.5-4.5) H 05/02/19 00:06 Magnesium 2.30 mg/dL (1.7-2.3) 05/02/19 00:06 Total Bilirubin 0.40 mg/dL (0.1-1.2) 05/05/19 05:00 AST 93 units/L (5-40) H 05/05/19 05:00 ALT 65 units/L (7-56) H 05/05/19 05:00 Alkaline Phosphatase 70 units/L (35-129) 05/05/19 05:00 Total Creatine Kinase 131 units/L (55-170) 05/02/19 04:41 CK-MB (CK-2) 5.2 ng/mL (0.0-4.0) H 05/02/19 04:41 CK-MB (CK-2) Rel Index 3.9 (0-4) 05/02/19 04:41 Troponin T 0.067 ng/mL (0.00-0.029) H D 05/02/19 04:41 NT-Pro-B Natriuret Pep 6831 pg/mL (0-450) H 05/01/19 Unknown Total Protein 6.9 g/dL (6.3-8.2) 05/05/19 05:00 Albumin 2.9 g/dL (3.9-5) L 05/05/19 05:00 Albumin/Globulin Ratio 0.7 % 05/05/19 05:00 Triglycerides 182 mg/dL (2-149) H 05/02/19 00:06 Cholesterol 173 mg/dL (50-199) 05/02/19 00:06 LDL Cholesterol Direct 126 mg/dL (50-130) 05/02/19 00:06 HDL Cholesterol 18 mg/dL (40-59) L 05/02/19 00:06 Cholesterol/HDL Ratio 9.61 % 05/02/19 00:06 Procalcitonin 0.54 ng/mL (<0.15) 05/03/19 11:52 Urine Color Yellow (Yellow) 05/03/19 10:55 Urine Turbidity Turbid (Clear) 05/03/19 10:55 Urine pH 5.0 (5.0-7.0) 05/03/19 10:55 Ur Specific [place] 1.014 (1.003-1.030) 05/03/19 10:55 Urine Protein <15 mg/dl mg/dL (Negative) 05/03/19 10:55 Urine Glucose (UA) Neg mg/dL (Negative) 05/03/19 10:55 Urine Ketones Neg mg/dL (Negative) 05/03/19 10:55 Urine Blood Lg (Negative) 05/03/19 10:55 Urine Nitrite Neg (Negative) 05/03/19 10:55 Urine Bilirubin Neg (Negative) 05/03/19 10:55 Urine Urobilinogen < 2.0 mg/dL (<2.0) 05/03/19 10:55 Ur Leukocyte Esterase Mod (Negative) 05/03/19 10:55 Urine WBC (Auto) 33.0 /HPF (0.0-6.0) H 05/03/19 10:55 Urine RBC (Auto) 8.0 /HPF (0.0-6.0) 05/03/19 10:55 Urine Bacteria (Auto) 1+ /HPF (Negative) 05/03/19 10:55 Uric Acid Crystals 3+ 05/03/19 10:55 Urine Mucus Few /HPF 05/03/19 10:55 Urine Creatinine 292.8 mg/dL (0.1-20.0) H 05/07/19 22:40 Urine Sodium 11 mmol/L 05/07/19 22:40 Urine Total Protein 269 mg/dL (5-11.8) H 05/07/19 22:40 Random Vancomycin 10.2 ug/mL (0-40.0) 05/08/19 05:50 Hepatitis A IgM Ab Non-reactive (NonReactive) 05/07/19 13:45 Hep Bs Antigen Non-reactive (Negative) 05/07/19 13:45 Hep B Core IgM Ab Non-reactive (NonReactive) 05/07/19 13:45 Hepatitis C Antibody Non-reactive (NonReactive) 05/07/19 13:45 Active Medications - Current Medications Current Medications: Generic Name Dose Route Start Last Admin Trade Name Freq PRN Reason Stop Dose Admin Acetaminophen 650 mg 05/01/19 22:46 05/06/19 13:00 Tylenol PO 650 mg Q4H PRN Administration Pain MILD(1-3)/Fever >100.5/FREEMAN Acetaminophen 650 mg 05/07/19 12:00 05/07/19 18:00 Tylenol PO Not Given Q6HR VICKEY Dextrose 50 gm 05/01/19 20:24 D50w (25gm) Vial IV Q30MIN PRN Hypoglycemia Protocol Enoxaparin Sodium 30 mg 05/05/19 10:00 05/07/19 09:52 Enoxaparin SUB-Q 30 mg QDAY VICKEY Administration Famotidine 20 mg 05/05/19 10:00 05/07/19 09:53 Pepcid PO 20 mg DAILY VICKEY Administration Fludrocortisone Acetate 0.1 mg 05/05/19 11:00 05/07/19 09:56 Florinef PO 0.1 mg QDAY VICKEY Administration Hydrophilic Ointment 1 applic 05/01/19 21:14 Vaseline Lip Therapy TP Q2HR PRN Dry Lips Fentanyl Citrate 2,000 mcg in 100 mls @ 10.195 mls/hr 05/01/19 22:00 05/08/19 06:22 Fentanyl Drip Premix IV 3 mcg/kg/hr TITR VICKEY 30.585 mls/hr Administration Protocol 1 MCG/KG/HR Propofol 1,000 mg in 100 mls @ 7.011 mls/hr 05/03/19 04:00 05/05/19 07:36 Diprivan 10 Mg/Ml IV 0 mcg/kg/min TITR VICKEY 0 mls/hr Titration Protocol 5 MCG/KG/MIN Norepinephrine 4 mg in 250 mls @ 7.5 mls/hr 05/03/19 18:00 Levophed Drip 4 Mg/Ns 250 Ml IV TITR VICKEY Protocol 2 MCG/MIN Dextrose/Sodium Chloride 1,000 mls @ 125 mls/hr 05/05/19 12:00 05/08/19 05:50 D5/0.45ns IV 125 mls/hr DIRECT VICKEY Administration Sodium Chloride 500 mls @ 10 mls/hr 05/06/19 15:00 Nacl 0.9% 500 Ml IV DIRECT VICKEY Ceftriaxone Sodium 2 gm in 100 mls @ 200 mls/hr 05/07/19 22:00 05/07/19 22:25 Rocephin/Ns 2 Gm/100 Ml IV 200 mls/hr Q12HR VICKEY Administration Protocol Acyclovir 1,140 mg/ Sodium 122.8 mls @ 100 mls/hr 05/07/19 22:00 05/07/19 22:25 Chloride IV 100 mls/hr Q12HR VICKEY Administration Protocol Vancomycin HCl 1,750 mg/ 535 mls @ 333.333 mls/hr 05/08/19 09:00 Sodium Chloride IV 05/08/19 10:36 ONCE ONE Lorazepam 2 mg 05/06/19 06:22 05/08/19 05:48 Ativan IV 2 mg Q4H PRN Administration Seizures Metoprolol Tartrate 25 mg 05/02/19 04:00 05/07/19 22:24 Metoprolol PO 25 mg BID VICKEY Administration Multi-Ingred Cream/Lotion/Oil/Oint 1 applic 05/01/19 21:14 Artificial Tears Ophth Oint OU Q4HR PRN Dry Eye(s) Ondansetron HCl 4 mg 05/01/19 22:46 Zofran IV Q8H PRN Nausea And Vomiting Sodium Chloride 10 ml 05/02/19 10:00 05/07/19 09:57 Sodium Chloride Flush Syringe 10 Ml IV 10 ml BID VICKEY Administration Sodium Chloride 10 ml 05/01/19 22:46 05/05/19 02:28 Sodium Chloride Flush Syringe 10 Ml IV 10 ml PRN PRN Administration LINE FLUSH Nutrition/Malnutrition Assess - Dietary Evaluation Nutrition/Malnutrition Findings: Nutrition Notes Start: 05/04/19 12:54 Freq: Status: Active Protocol: Document 05/07/19 09:55 DW (Rec: 05/07/19 09:59 DW [id number]) Co-Sign 05/07/19 09:55 LP Nutrition Notes Initial or Follow up Reassessment Current Diagnosis Acute Kidney Injury,Sepsis, Respiratory Failure Current Diet Nepro 1.8 at 60ml/hr Labs/Tests Na 145 BUN 76 Cr 3.2 Glu 147 Pertinent Medications Levophed Enaxoprine Height 6 ft 4 in Weight 227.5 kg [place] Body Weight (kg) 91.81 BMI 61.0 Weight Status Morbidly Obese Subjective/Other Information FU TF tolerance Noticed Nepro 1.8 running at goal of 50ml/hr Percent of energy/protein needs met: 86%/43% Burn Absent Trauma Absent Current % PO Negligible Minimum of two criteria No physical signs of malnutrition #1 Nutrition Diagnosis Inadequate oral intake Diagnosis Progress(for reassessment Continues documentation) Is patient on ventilator? Yes Is Patient Ambulatory and/or Out of Bed No REE-([facility]-confined to bed) 3986.244 Kcal/Kg value to use for calculation 11 Approximate Energy Requirements Using 2503 kcal/Kg Calculation Used for Recommendations Kcal/kg Additional Notes PRO needs: 225 g (up to 2.5 g/ kg 91.81 IBW) Fluid needs: 1 ml/kcal Nutrition Intervention Change Diet Order: Continue TF Nutrition Support: Nepro 1.8 at 50 ml/hr 250 ml flush q4h Kcal 2,160 Protein (gm) 97 Fluid (mL) 872 Goal #1 TF tolerance Goal #2 Meet at least 75% kcal/PRO needs via TF Anticipated Discharge Needs: Unable to determine at this time Follow-Up By: 05/14/19 Additional Comments FU TF tolerance
[2019-05-08] MEDS ORDERED: VANCOMYCIN 1,750 MG in SODIUM CHLORIDE 0.9% 500 ML 500 ML IV ONE (09:00)
[2019-05-08] MEDS: FLUDROCORTISONE 0.1 MG TAB PO SCH (09:15)
[2019-05-08] MEDS: FAMOTIDINE 20 MG TAB PO SCH (09:15)
[2019-05-08] MEDS: METOPROLOL TARTRATE 25 MG TAB PO SCH ×2 (09:15→23:12)
[2019-05-08] MEDS: ENOXAPARIN 30 MG/0.3 ML INJ SUB-Q SCH (09:15)
[2019-05-08] MEDS: cefTRIAXone/NS 2 GM/100 ML 2 GM/100 ML BAG IV SCH ×2 (09:16→23:10)
[2019-05-08] MEDS: ACYCLOVIR IV SCH ×2 (09:45→23:11)
[2019-05-08] MEDS: SODIUM CHLORIDE 0.9% IV SCH ×2 (09:45→23:11)
--- NOTE | 2019-05-08 11:40 | Ultrasound Report ---
Retroperitoneal Ultrasound History: renal failure , . Comparison: None Procedure: Real time ultrasound was utilized to evaluate. Findings: The right kidney was poorly visualized and cannot be evaluated. The left kidney measures 12 .0 cm. Left kidney was poorly visualized as well. No obvious left renal mass or hydronephrosis.. There is thickening of the posterior bladder wall measuring approximately 1 cm. This is nonspecific. Impression: 1. Right kidney was poorly visualized and could not be evaluated. 2. Left kidney was also poorly visualized but appeared grossly normal for the degree of visualization . 3. Mild bladder wall thickening posteriorly. Signer Name: Mari Chase MD Signed: 05/08/2019 11:35 AM Workstation Name: [id number]
--- NOTE | 2019-05-08 11:41 | Progress Note ---
Assessment and Plan Cultures: Blood cultures: no growth thus far Sputum culture: no growth thus far urine culture: no growth resp culture: no growth A/P: 34-year-old male with obesity admitted with: #Fever, SIRS: Patient was afebrile for the first 2 days of hospitalization, then he developed a fever of 101.2F. ?aspiration related. Apparently was using CPAP. Now febrile again, ?UTI. UA showed pyuria, had indwelling Berkowitz which was removed. Urine culture with no growth. #Acute hypoxic hypercapneic respiratory failure, possibly obesity hypoventilation syndrome: on the vent. Pulmonary managing. #Morbid obesity #CARLA: creatinine elevated. dose abx accordingly. #Elevated LFTs: RUQ US showed fatty liver, small GB sludge. Improving. #Acute encephalopathy with ?seizure activity: persistent fevers. Agree with possible meningitis coverage, discussed with Dr. Chen. Recs: Fevers better. continue empiric meningitis coverage with Ceftriaxone, Vanc omycin, Acyclovir When feasible LP and possible MRI brain (though may be limited due to patient's weight) Burke Wilks MD, FACP [facility] ([facility] C: [phone] O: [phone] F: [phone] Subjective Date of service: 05/08/19 Principal diagnosis: HF; acute hypoxemic resp failure, SIRS, CARLA Interval history: Fevers better. Remains intubated, sedated, continues to have high vent requirements. Objective - Exam Narrative Exam: Physical Exam: Constitutional: sedated, intubated. Morbid obesity Head, Ears, Nose: Normocephalic, atraumatic. External ears, nose normal Eyes: Conjunctivae/corneas clear. No icterus. No ptosis. Neck: intubated Oral: intubated Cardiovascular: S1, S2 normal. Respiratory: Good air entry, clear to auscultation bilaterally GI: Soft, non-tender; bowel sounds normal. No peritoneal signs Musculoskeletal: No pedal edema, no cyanosis. Skin: No rash or abscess Hem/Lymphatic: No palpable cervical or supraclavicular nodes. No lymphangitis Psych: no agitation Neurological: sedated, intubated, on vent - Constitutional Vitals: Vital Signs Temp Pulse Resp BP Pulse Ox 98.7 F 92 H 11 L 129/63 93 05/08/19 08:00 05/08/19 11:16 05/08/19 10:00 05/08/19 11:16 05/08/19 11:16 Temperature -Last 24 Hours Temperature 98.7 F Temperature 98.7 F Temperature 98.7 F Temperature 98.9 F Temperature 101 F Temperature 99.9 F Temperature 101.2 F - Labs CBC & Chem 7: 05/07/19 09:35 05/07/19 09:35 Labs: Abnormal lab results 05/07/19 05/07/19 05/07/19 Range/Units 12:17 13:45 17:39 POC ABG pCO2 (35-45) POC ABG pO2 (80-105) POC Glucose 130 H 116 H (70-105) Uric Acid 18.0 H (3.5-7.6) mg/dL Urine Creatinine (0.1-20.0) mg/dL Urine Total Protein (5-11.8) mg/dL 05/07/19 05/08/19 05/08/19 Range/Units 22:40 05:06 05:32 POC ABG pCO2 45.4 H (35-45) POC ABG pO2 64 L (80-105) POC Glucose 148 H (70-105) Uric Acid (3.5-7.6) mg/dL Urine Creatinine 292.8 H (0.1-20.0) mg/dL Urine Total Protein 269 H (5-11.8) mg/dL - Imaging and cardiology Chest x-ray: report reviewed, image reviewed (poor quality, ?under exposed)
[2019-05-08] MEDS: ACETAMINOPHEN 325 MG/10.15 ML ORAL LIQD UNIT DOSE PO SCH ×2 (12:00→18:00)
--- NOTE | 2019-05-08 12:49 | Progress Note ---
Subjective Principal diagnosis: HF; acute hypoxemic resp failure, SIRS, CARLA Interval history: Patient was seen today for follow-up on multiple renal related issues Events of this hospitalization were noted no renal function panel today has been admitted here with respiratory failure bradycardia hypotension and hypoxemia Noted to have worsening renal failure Interdisciplinary notes were also reviewed Vitals intake output medications were reviewed Past medical history: Reviewed Family, social history: Reviewed Allergies: Reviewed Physical examination General: No acute distress/ intubated Vitals: Reviewed HEENT: Oral mucosa moist no icterus Neck: Supple no thyromegaly nodular mass or JVD Chest: bilateral basilar crackles Heart: Regular rate and rhythm S1-S2 heard no S3-S4 Abdomen: Soft nontender no suprapubic masses no organomegaly Extremity: Dry skin less than 1+ edema Psych: No evidence of any agitation and aggression noted Derm: No petechial rash Assessment and plan: Acute kidney injury patient's baseline creatinine is unclear, creatinine was 1.9 on 05/03/2019 current creatinine is around 3.2 stable since yesterday potassium is 4.2 bicarbonate 28/ nonoliguric depending on the creatinine we can give him Lasix if required/ there is no immediate indication for renal replacement therapy Patient needs follow-up labs as of yesterday sodium is better 145 potassium is 4.2 creatinine was 3.2 which has been relatively stable over the last 3-4 days protein creatinine ratio is slightly less than 1 g Vancomycin level satisfactory nontoxic hepatitis profile negative His blood pressure appears to be better controlled now heart rate is stable Encephalopathy, seizure disorder, hypoxic respiratory failure, fever being followed by infectious disease Admitted with severe respiratory failure oxygen saturation was down to 28% with heart rate in 50s, has been intubated and resuscitated since was also noted to have pulmonary edema Creatinine upon admission was 1.8 to begin with Hypernatremia has improved sodium is currently around 145 which was 151 2 days ago Urinalysis showed evidence of 33 white blood cells 8 red blood cells less than 15 mg protein in the urine We will follow up on the ultrasound continue to monitor renal function Hypertension blood pressure currently 140-150 range mild tachycardia Patient noted to be febrile 101.4 Blood cultures have been negative as of 05/03/2019 renal prognosis: Guarded We'll continue to follow and make recommendation from renal standpoint Objective - Vital Signs Vital signs: Vital Signs - 12hr 05/08/19 05/08/19 05/08/19 01:00 01:15 01:30 Temperature Pulse Rate 88 90 88 Pulse Rate [ From Monitor] Respiratory 22 21 22 Rate Blood Pressure 130/60 135/59 133/57 O2 Sat by Pulse 94 96 94 Oximetry 05/08/19 05/08/19 05/08/19 01:45 02:00 02:15 Temperature Pulse Rate 88 87 85 Pulse Rate [ From Monitor] Respiratory 22 22 22 Rate Blood Pressure 124/56 132/62 128/57 O2 Sat by Pulse 97 96 97 Oximetry 05/08/19 05/08/19 05/08/19 02:30 02:45 03:00 Temperature Pulse Rate 116 H 105 H 106 H Pulse Rate [ From Monitor] Respiratory 26 H 14 21 Rate Blood Pressure 127/97 151/68 150/76 O2 Sat by Pulse 79 L 84 91 Oximetry 05/08/19 05/08/19 05/08/19 03:15 03:22 03:30 Temperature 98.7 F Pulse Rate 101 H Pulse Rate [ From Monitor] Respiratory 16 Rate Blood Pressure 155/69 112/49 O2 Sat by Pulse 90 95 Oximetry 05/08/19 05/08/19 05/08/19 03:45 03:55 04:00 Temperature Pulse Rate 86 84 85 Pulse Rate [ 85 From Monitor] Respiratory 23 23 Rate Blood Pressure 123/42 123/42 112/41 O2 Sat by Pulse 99 98 95 Oximetry 05/08/19 05/08/19 05/08/19 04:15 04:30 04:45 Temperature Pulse Rate 99 H 100 H 93 H Pulse Rate [ From Monitor] Respiratory 18 20 17 Rate Blood Pressure 126/63 138/84 137/60 O2 Sat by Pulse Oximetry 05/08/19 05/08/19 05/08/19 05:00 05:15 05:31 Temperature Pulse Rate 84 82 104 H Pulse Rate [ From Monitor] Respiratory 26 H 26 H 16 Rate Blood Pressure 118/61 124/64 141/121 O2 Sat by Pulse Oximetry 05/08/19 05/08/19 05/08/19 05:45 06:00 06:15 Temperature Pulse Rate 107 H 93 H 88 Pulse Rate [ From Monitor] Respiratory 16 16 14 Rate Blood Pressure 144/88 116/56 118/54 O2 Sat by Pulse Oximetry 05/08/19 05/08/19 05/08/19 06:30 06:45 07:00 Temperature Pulse Rate 87 85 87 Pulse Rate [ From Monitor] Respiratory 17 13 12 Rate Blood Pressure 108/51 117/56 111/63 O2 Sat by Pulse 90 Oximetry 05/08/19 05/08/19 05/08/19 07:15 07:30 07:46 Temperature Pulse Rate 87 85 Pulse Rate [ From Monitor] Respiratory 9 L 22 Rate Blood Pressure 107/59 111/63 125/92 O2 Sat by Pulse 93 93 Oximetry 05/08/19 05/08/19 05/08/19 08:00 08:15 08:30 Temperature 98.7 F Pulse Rate 90 78 83 Pulse Rate [ 90 From Monitor] Respiratory 23 25 H 23 Rate Blood Pressure 146/75 142/69 145/76 O2 Sat by Pulse 92 91 91 Oximetry 05/08/19 05/08/19 05/08/19 08:45 09:00 09:15 Temperature Pulse Rate 86 84 77 Pulse Rate [ From Monitor] Respiratory 21 23 23 Rate Blood Pressure 153/78 152/73 142/89 O2 Sat by Pulse 93 92 96 Oximetry 05/08/19 05/08/19 05/08/19 09:30 09:45 10:00 Temperature Pulse Rate 76 76 97 H Pulse Rate [ From Monitor] Respiratory 23 20 11 L Rate Blood Pressure 166/83 151/86 164/88 O2 Sat by Pulse 97 97 83 L Oximetry 05/08/19 11:16 Temperature Pulse Rate 92 H Pulse Rate [ From Monitor] Respiratory Rate Blood Pressure 129/63 O2 Sat by Pulse 93 Oximetry - Lab 05/09/19 04:50 05/09/19 07:24 Most recent lab results ABG pH 7.403 pH Units (7.350-7.450) 05/02/19 16:05 ABG pCO2 52.3 mm Hg 05/02/19 16:05 ABG pO2 66.6 mm Hg (80.0-90.0) L 05/02/19 16:05 ABG HCO3 31.9 mmol/L (20.0-26.0) H 05/02/19 16:05 ABG O2 Saturation 92.5 % (95.0-99.0) L 05/02/19 16:05 Calcium 7.9 mg/dL (8.4-10.2) L 05/07/19 09:35 Phosphorus 4.90 mg/dL (2.5-4.5) H 05/02/19 00:06 Magnesium 2.30 mg/dL (1.7-2.3) 05/02/19 00:06 Urine Creatinine 292.8 mg/dL (0.1-20.0) H 05/07/19 22:40 Urine Sodium 11 mmol/L 05/07/19 22:40 Urine Total Protein 269 mg/dL (5-11.8) H 05/07/19 22:40 Medications & Allergies - Medications Allergies/Adverse Reactions: Allergies No Known Allergies Allergy (Verified 05/01/19 20:27) Home Medications: Home Medications Medication Instructions Recorded Confirmed Last Taken Type No Known Home Medications [No 05/03/19 05/03/19 Unknown History Reported Home Medications] Active Medications: Generic Name Dose Route Start Last Admin Trade Name Freq PRN Reason Stop Dose Admin Acetaminophen 650 mg 05/01/19 22:46 05/06/19 13:00 Tylenol PO 650 mg Q4H PRN Administration Pain MILD(1-3)/Fever >100.5/FREEMAN Acetaminophen 650 mg 05/07/19 12:00 05/07/19 18:00 Tylenol PO Not Given Q6HR VICKEY Dextrose 50 gm 05/01/19 20:24 D50w (25gm) Vial IV Q30MIN PRN Hypoglycemia Protocol Enoxaparin Sodium 30 mg 05/05/19 10:00 05/08/19 09:15 Enoxaparin SUB-Q 30 mg QDAY VICKEY Administration Famotidine 20 mg 05/05/19 10:00 05/08/19 09:15 Pepcid PO 20 mg DAILY VICKEY Administration Fludrocortisone Acetate 0.1 mg 05/05/19 11:00 05/08/19 09:15 Florinef PO 0.1 mg QDAY VICKEY Administration Hydrophilic Ointment 1 applic 05/01/19 21:14 Vaseline Lip Therapy TP Q2HR PRN Dry Lips Fentanyl Citrate 2,000 mcg in 100 mls @ 10.195 mls/hr 05/01/19 22:00 05/08/19 11:12 Fentanyl Drip Premix IV 3 mcg/kg/hr TITR VICKEY 30.585 mls/hr Titration Protocol 1 MCG/KG/HR Propofol 1,000 mg in 100 mls @ 7.011 mls/hr 05/03/19 04:00 05/05/19 07:36 Diprivan 10 Mg/Ml IV 0 mcg/kg/min TITR VICKEY 0 mls/hr Titration Protocol 5 MCG/KG/MIN Norepinephrine 4 mg in 250 mls @ 7.5 mls/hr 05/03/19 18:00 Levophed Drip 4 Mg/Ns 250 Ml IV TITR VICKEY Protocol 2 MCG/MIN Dextrose/Sodium Chloride 1,000 mls @ 125 mls/hr 05/05/19 12:00 05/08/19 05:50 D5/0.45ns IV 125 mls/hr DIRECT VICKEY Administration Sodium Chloride 500 mls @ 10 mls/hr 05/06/19 15:00 Nacl 0.9% 500 Ml IV DIRECT VICKEY Ceftriaxone Sodium 2 gm in 100 mls @ 200 mls/hr 05/07/19 22:00 05/08/19 09:16 Rocephin/Ns 2 Gm/100 Ml IV 200 mls/hr Q12HR VICKEY Administration Protocol Acyclovir 1,140 mg/ Sodium 122.8 mls @ 100 mls/hr 05/07/19 22:00 05/08/19 09:45 Chloride IV 100 mls/hr Q12HR VICKEY Administration Protocol Lorazepam 2 mg 05/06/19 06:22 05/08/19 05:48 Ativan IV 2 mg Q4H PRN Administration Seizures Metoprolol Tartrate 25 mg 05/02/19 04:00 05/08/19 09:15 Metoprolol PO 25 mg BID VICKEY Administration Multi-Ingred Cream/Lotion/Oil/Oint 1 applic 05/01/19 21:14 Artificial Tears Ophth Oint OU Q4HR PRN Dry Eye(s) Ondansetron HCl 4 mg 05/01/19 22:46 Zofran IV Q8H PRN Nausea And Vomiting Sodium Chloride 10 ml 05/02/19 10:00 05/08/19 09:17 Sodium Chloride Flush Syringe 10 Ml IV 10 ml BID VICKEY Administration Sodium Chloride 10 ml 05/01/19 22:46 05/05/19 02:28 Sodium Chloride Flush Syringe 10 Ml IV 10 ml PRN PRN Administration LINE FLUSH
[2019-05-08 14:22] LABS: Calcium 7.6 mg/dL (8.4-10.2)
--- NOTE | 2019-05-08 17:10 | XRay Report ---
ABDOMEN 1 VIEW INDICATION / CLINICAL INFORMATION: ngt placement. COMPARISON: None available. FINDINGS: TUBES / LINES: Esophagogastric tube has been placed with the tip in the distal stomach near the pylor us. BOWEL GAS PATTERN: No significant abnormality. FREE AIR / EXTRALUMINAL GAS: None seen. ADDITIONAL FINDINGS: No significant additional findings. IMPRESSION: 1. Esophagogastric tube in expected position. Signer Name: Brii Prabhakar MD Signed: 05/08/2019 5:06 PM Workstation Name: [id number]
--- NOTE | 2019-05-08 23:35 | Progress Note ---
Assessment and Plan Imp: 1. Acute respiratory failure, hypoxia 2. A/C respiratory failure, hypercapnea 3. LANDON/OHS/Morbid obesity 4. CARLA 5. Pulm HTN 6. Sepsis -> ? Pneumonia, ? Meningitis 7. Seizures Rec: 1. Wean FiO2 to keep sats 88% or >; once at 50%, start weaning PEEP 2. Sedation same 3. May need trach 4. Holding diuresis 5. ABX per ID; too large for MRI brain and probably LP not possible due to morbid obesity 6. Re: RUL atelectasis, poor candidate for bronch; consider vest therapy but doubt there is a large enough vest to fit him; monitor CXRs 7. TFs, DVT and GI PPx Plan of care reviewed with mother, she understands/agrees CCT 31 minutes Subjective Date of service: 05/08/19 Principal diagnosis: HF; acute hypoxemic resp failure, SIRS, CARLA Interval history: No events. Remains on FiO2 of 70% and PEEP of 20. Sedated. Cannot give hx. Fevers better. Active Medications Acetaminophen (Tylenol) 650 mg PO Q4H PRN PRN Reason: Pain MILD(1-3)/Fever >100.5/FREEMAN Last Admin: 05/06/19 13:00 Dose: 650 mg Documented by: Acetaminophen (Tylenol) 650 mg PO Q6HR [facility] Last Admin: 05/08/19 12:00 Dose: Not Given Documented by: Dextrose (D50w (25gm) Vial) 50 gm IV Q30MIN PRN; Protocol PRN Reason: Hypoglycemia Enoxaparin Sodium (Enoxaparin) 30 mg SUB-Q QDAY [facility] Last Admin: 05/08/19 09:15 Dose: 30 mg Documented by: Famotidine (Pepcid) 20 mg PO DAILY [facility] Last Admin: 05/08/19 09:15 Dose: 20 mg Documented by: Fludrocortisone Acetate (Florinef) 0.1 mg PO QDAY [facility] Last Admin: 05/08/19 09:15 Dose: 0.1 mg Documented by: Hydrophilic Ointment (Vaseline Lip Therapy) 1 applic TP Q2HR PRN PRN Reason: Dry Lips Fentanyl Citrate (Fentanyl Drip Premix) 2,000 mcg in 100 mls @ 10.195 mls/hr IV TITR [facility]; Protocol Last Admin: 05/08/19 21:18 Dose: 4 mcg/kg/hr, 40.78 mls/hr Documented by: Propofol (Diprivan 10 Mg/Ml) 1,000 mg in 100 mls @ 7.011 mls/hr IV TITR [facility]; Protocol Last Titration: 05/05/19 07:36 Dose: 0 mcg/kg/min, 0 mls/hr Documented by: Norepinephrine (Levophed Drip 4 Mg/Ns 250 Ml) 4 mg in 250 mls @ 7.5 mls/hr IV TITR [facility]; Protocol Dextrose/Sodium Chloride (D5/0.45ns) 1,000 mls @ 125 mls/hr IV DIRECT [facility] Last Admin: 05/08/19 23:15 Dose: 125 mls/hr Documented by: Sodium Chloride (Nacl 0.9% 500 Ml) 500 mls @ 10 mls/hr IV DIRECT [facility] Ceftriaxone Sodium (Rocephin/Ns 2 Gm/100 Ml) 2 gm in 100 mls @ 200 mls/hr IV Q12HR [facility]; Protocol Last Admin: 05/08/19 23:10 Dose: 200 mls/hr Documented by: Acyclovir 1,140 mg/ Sodium (Chloride) 122.8 mls @ 100 mls/hr IV Q12HR [facility]; Protocol Last Admin: 05/08/19 23:11 Dose: 100 mls/hr Documented by: Lorazepam (Ativan) 2 mg IV Q4H PRN PRN Reason: Seizures Last Admin: 05/08/19 22:18 Dose: 2 mg Documented by: Metoprolol Tartrate (Metoprolol) 25 mg PO BID [facility] Last Admin: 05/08/19 23:12 Dose: 25 mg Documented by: Multi-Ingred Cream/Lotion/Oil/Oint (Artificial Tears Ophth Oint) 1 applic OU Q4HR PRN PRN Reason: Dry Eye(s) Ondansetron HCl (Zofran) 4 mg IV Q8H PRN PRN Reason: Nausea And Vomiting Sodium Chloride (Sodium Chloride Flush Syringe 10 Ml) 10 ml IV BID [facility] Last Admin: 05/08/19 23:13 Dose: 10 ml Documented by: Sodium Chloride (Sodium Chloride Flush Syringe 10 Ml) 10 ml IV PRN PRN PRN Reason: LINE FLUSH Last Admin: 05/05/19 02:28 Dose: 10 ml Documented by: Objective Vital Signs - 12hr 05/08/19 05/08/19 05/08/19 11:30 11:45 12:00 Temperature 97.9 F Pulse Rate 82 79 79 Pulse Rate [ 81 From Monitor] Respiratory 22 22 25 H Rate Blood Pressure 125/52 119/51 125/55 O2 Sat by Pulse 89 89 92 Oximetry 05/08/19 05/08/19 05/08/19 12:15 12:30 12:45 Temperature Pulse Rate 78 76 78 Pulse Rate [ From Monitor] Respiratory 21 21 23 Rate Blood Pressure 128/55 135/56 127/53 O2 Sat by Pulse 87 94 93 Oximetry 05/08/19 05/08/19 05/08/19 13:00 13:15 13:30 Temperature Pulse Rate 80 81 91 H Pulse Rate [ From Monitor] Respiratory 24 18 11 L Rate Blood Pressure 125/62 130/58 145/58 O2 Sat by Pulse 94 95 91 Oximetry 05/08/19 05/08/19 05/08/19 13:45 14:00 14:15 Temperature Pulse Rate 101 H 98 H 85 Pulse Rate [ From Monitor] Respiratory 13 16 22 Rate Blood Pressure 168/89 144/68 133/62 O2 Sat by Pulse 86 84 89 Oximetry 05/08/19 05/08/19 05/08/19 14:30 14:45 15:00 Temperature Pulse Rate 82 83 81 Pulse Rate [ From Monitor] Respiratory 21 22 22 Rate Blood Pressure 130/52 124/58 129/55 O2 Sat by Pulse 90 91 91 Oximetry 05/08/19 05/08/19 05/08/19 15:15 15:30 15:45 Temperature Pulse Rate 79 80 80 Pulse Rate [ From Monitor] Respiratory 22 22 22 Rate Blood Pressure 117/61 119/60 127/61 O2 Sat by Pulse 95 94 95 Oximetry 05/08/19 05/08/19 05/08/19 15:51 16:00 16:15 Temperature 97.9 F Pulse Rate 80 80 81 Pulse Rate [ 81 From Monitor] Respiratory 22 22 Rate Blood Pressure 127/61 125/61 130/66 O2 Sat by Pulse 96 94 Oximetry 05/08/19 05/08/19 05/08/19 16:30 16:45 17:00 Temperature Pulse Rate 81 108 H 90 Pulse Rate [ From Monitor] Respiratory 21 16 22 Rate Blood Pressure 130/61 120/61 136/73 O2 Sat by Pulse 90 85 91 Oximetry 05/08/19 05/08/19 05/08/19 17:15 17:31 17:45 Temperature Pulse Rate 83 78 82 Pulse Rate [ From Monitor] Respiratory 21 24 14 Rate Blood Pressure 134/59 151/76 117/62 O2 Sat by Pulse 93 98 97 Oximetry 05/08/19 05/08/19 05/08/19 18:01 18:15 18:30 Temperature Pulse Rate 82 76 74 Pulse Rate [ From Monitor] Respiratory 21 23 22 Rate Blood Pressure 148/73 148/73 145/75 O2 Sat by Pulse 97 97 98 Oximetry 05/08/19 05/08/19 05/08/19 18:45 19:00 19:15 Temperature Pulse Rate 108 H 87 82 Pulse Rate [ From Monitor] Respiratory 14 22 18 Rate Blood Pressure 146/61 146/61 127/67 O2 Sat by Pulse 71 L 95 97 Oximetry 05/08/19 05/08/19 05/08/19 19:30 19:42 19:45 Temperature Pulse Rate 78 80 80 Pulse Rate [ From Monitor] Respiratory 22 22 Rate Blood Pressure 132/70 132/70 126/67 O2 Sat by Pulse 98 95 95 Oximetry 05/08/19 05/08/19 05/08/19 20:00 20:15 20:30 Temperature 98.5 F Pulse Rate 80 77 76 Pulse Rate [ From Monitor] Respiratory 18 22 18 Rate Blood Pressure 127/71 131/66 124/64 O2 Sat by Pulse 95 95 98 Oximetry 05/08/19 05/08/19 05/08/19 20:46 21:00 23:16 Temperature Pulse Rate 72 73 77 Pulse Rate [ From Monitor] Respiratory 23 25 H Rate Blood Pressure 135/83 143/73 139/66 O2 Sat by Pulse 98 98 96 Oximetry Constitutional: other (morbidly obese male, sedated on vent) Eyes: non-icteric Neck: other (extremely large in circumference) Effort: normal Ascultation: Bilateral: diminished breath sounds (secondary to body habitus) Cardiovascular: regular rate and rhythm (no mrg) Gastrointestinal: normoactive bowel sounds, other (obese) Integumentary: other (swelling of L hand due to blood pressure cuff and restraints, with non-infected appearing blister on thumb) Extremities: other (1+ generalized edema) Neurologic: unable to assess Psychiatric: other (unable to assess) CBC and BMP: 05/07/19 09:35 05/08/19 13:48 ABG, PT/INR, D-dimer: ABG POC ABG pH 7.429 (7.35-7.45) 05/08/19 05:32 ABG pH 7.403 pH Units (7.350-7.450) 05/02/19 16:05 POC ABG pCO2 45.4 (35-45) H 05/08/19 05:32 ABG pCO2 52.3 mm Hg 05/02/19 16:05 POC ABG pO2 64 (80-105) L 05/08/19 05:32 ABG pO2 66.6 mm Hg (80.0-90.0) L 05/02/19 16:05 POC ABG HCO3 30.1 (22-26 mml/L) 05/08/19 05:32 POC ABG Total CO2 31 (23-27mmol/L) 05/08/19 05:32 POC ABG O2 Sat 93 05/08/19 05:32 ABG O2 Saturation 92.5 % (95.0-99.0) L 05/02/19 16:05 PT/INR, D-dimer PT 15.4 Sec. (12.2-14.9) H 05/01/19 Unknown INR 1.23 (0.87-1.13) H 05/01/19 Unknown Abnormal lab findings: Abnormal Labs 05/01/19 05/01/19 05/01/19 17:50 19:26 22:36 WBC Hgb Hct MCH MCHC RDW Lymph % (Auto) [place] % (Auto) Lymph # [place] # Seg Neutrophils % Seg Neutrophils # PT INR APTT POC ABG pH 7.272 L 7.331 L POC ABG pCO2 52.8 H POC ABG pO2 ABG pO2 ABG HCO3 ABG O2 Saturation ABG Base Excess ABG Hemoglobin Oxyhemoglobin Sodium 136 L Potassium 6.5 H* Chloride 97.2 L Carbon Dioxide BUN 60 H Creatinine Glucose 113 H POC Glucose Uric Acid Calcium Phosphorus Magnesium 2.40 H AST 139 H ALT 154 H Total Creatine Kinase CK-MB (CK-2) Troponin T NT-Pro-B Natriuret Pep Albumin 3.8 L Triglycerides HDL Cholesterol Urine WBC (Auto) Urine Creatinine Urine Total Protein 05/01/19 05/01/19 05/01/19 Unknown Unknown Unknown WBC 16.1 H Hgb Hct MCH MCHC RDW 17.2 H Lymph % (Auto) [place] % (Auto) 9.6 H Lymph # [place] # 1.5 H Seg Neutrophils % 73.0 H Seg Neutrophils # 11.7 H PT 15.4 H INR 1.23 H APTT 22.7 L POC ABG pH POC ABG pCO2 POC ABG pO2 ABG pO2 ABG HCO3 ABG O2 Saturation ABG Base Excess ABG Hemoglobin Oxyhemoglobin Sodium Potassium Chloride Carbon Dioxide BUN Creatinine Glucose POC Glucose Uric Acid Calcium Phosphorus Magnesium AST ALT Total Creatine Kinase CK-MB (CK-2) Troponin T NT-Pro-B Natriuret Pep 6831 H Albumin Triglycerides HDL Cholesterol Urine WBC (Auto) Urine Creatinine Urine Total Protein 05/01/19 05/02/19 05/02/19 Unknown 00:06 00:06 WBC Hgb Hct MCH MCHC RDW Lymph % (Auto) [place] % (Auto) Lymph # [place] # Seg Neutrophils % Seg Neutrophils # PT INR APTT POC ABG pH POC ABG pCO2 POC ABG pO2 ABG pO2 ABG HCO3 ABG O2 Saturation ABG Base Excess ABG Hemoglobin Oxyhemoglobin Sodium Potassium Chloride Carbon Dioxide BUN Creatinine Glucose POC Glucose Uric Acid Calcium Phosphorus 4.90 H Magnesium AST ALT Total Creatine Kinase 226 H CK-MB (CK-2) 5.7 H Troponin T 0.044 H NT-Pro-B Natriuret Pep Albumin Triglycerides 182 H HDL Cholesterol 18 L Urine WBC (Auto) Urine Creatinine Urine Total Protein 05/02/19 05/02/19 05/02/19 02:08 04:40 04:41 WBC 17.6 H Hgb Hct MCH 27 L MCHC RDW 17.4 H Lymph % (Auto) 10.2 L [place] % (Auto) 11.0 H Lymph # [place] # 1.9 H Seg Neutrophils % 78.0 H Seg Neutrophils # 13.8 H PT INR APTT POC ABG pH POC ABG pCO2 46.8 H POC ABG pO2 63 L ABG pO2 ABG HCO3 ABG O2 Saturation ABG Base Excess ABG Hemoglobin Oxyhemoglobin Sodium Potassium Chloride 96.3 L Carbon Dioxide BUN 63 H Creatinine 1.7 H Glucose POC Glucose Uric Acid Calcium Phosphorus Magnesium AST ALT Total Creatine Kinase CK-MB (CK-2) Troponin T NT-Pro-B Natriuret Pep Albumin Triglycerides HDL Cholesterol Urine WBC (Auto) Urine Creatinine Urine Total Protein 05/02/19 05/02/19 05/02/19 04:41 04:41 16:05 WBC Hgb Hct MCH MCHC RDW Lymph % (Auto) [place] % (Auto) Lymph # [place] # Seg Neutrophils % Seg Neutrophils # PT INR APTT POC ABG pH POC ABG pCO2 POC ABG pO2 ABG pO2 66.6 L ABG HCO3 31.9 H ABG O2 Saturation 92.5 L ABG Base Excess 5.8 H ABG Hemoglobin 13.3 L Oxyhemoglobin 90.6 L Sodium Potassium Chloride 97.2 L Carbon Dioxide BUN 61 H Creatinine 1.8 H Glucose POC Glucose Uric Acid Calcium Phosphorus Magnesium AST ALT Total Creatine Kinase CK-MB (CK-2) 5.2 H Troponin T 0.067 H D NT-Pro-B Natriuret Pep Albumin Triglycerides HDL Cholesterol Urine WBC (Auto) Urine Creatinine Urine Total Protein 05/02/19 05/03/19 05/03/19 20:39 04:35 05:05 WBC 11.8 H Hgb Hct MCH 27 L MCHC 31 L RDW 17.2 H Lymph % (Auto) [place] % (Auto) Lymph # [place] # Seg Neutrophils % Seg Neutrophils # PT INR APTT POC ABG pH POC ABG pCO2 53.6 H 54.0 H POC ABG pO2 55 L 63 L ABG pO2 ABG HCO3 ABG O2 Saturation ABG Base Excess ABG Hemoglobin Oxyhemoglobin Sodium Potassium Chloride Carbon Dioxide BUN Creatinine Glucose POC Glucose Uric Acid Calcium Phosphorus Magnesium AST ALT Total Creatine Kinase CK-MB (CK-2) Troponin T NT-Pro-B Natriuret Pep Albumin Triglycerides HDL Cholesterol Urine WBC (Auto) Urine Creatinine Urine Total Protein 05/03/19 05/03/19 05/03/19 05:05 10:55 16:48 WBC Hgb Hct MCH MCHC RDW Lymph % (Auto) [place] % (Auto) Lymph # [place] # Seg Neutrophils % Seg Neutrophils # PT INR APTT POC ABG pH 7.604 H POC ABG pCO2 POC ABG pO2 58 L ABG pO2 ABG HCO3 ABG O2 Saturation ABG Base Excess ABG Hemoglobin Oxyhemoglobin Sodium Potassium Chloride Carbon Dioxide BUN 52 H Creatinine 1.9 H Glucose 103 H POC Glucose Uric Acid Calcium Phosphorus Magnesium AST ALT Total Creatine Kinase CK-MB (CK-2) Troponin T NT-Pro-B Natriuret Pep Albumin Triglycerides HDL Cholesterol Urine WBC (Auto) 33.0 H Urine Creatinine Urine Total Protein 05/04/19 05/04/19 05/04/19 04:49 06:50 06:50 WBC 16.0 H Hgb Hct MCH 27 L MCHC 31 L RDW 17.8 H Lymph % (Auto) [place] % (Auto) Lymph # [place] # Seg Neutrophils % Seg Neutrophils # PT INR APTT POC ABG pH 7.273 L POC ABG pCO2 POC ABG pO2 ABG pO2 ABG HCO3 ABG O2 Saturation ABG Base Excess ABG Hemoglobin Oxyhemoglobin Sodium 148 H Potassium 5.5 H Chloride Carbon Dioxide BUN 53 H Creatinine 3.3 H D Glucose 106 H POC Glucose Uric Acid Calcium 8.3 L Phosphorus Magnesium AST ALT Total Creatine Kinase CK-MB (CK-2) Troponin T NT-Pro-B Natriuret Pep Albumin Triglycerides HDL Cholesterol Urine WBC (Auto) Urine Creatinine Urine Total Protein 05/05/19 05/05/19 05/05/19 00:05 04:30 05:00 WBC Hgb Hct MCH MCHC RDW Lymph % (Auto) [place] % (Auto) Lymph # [place] # Seg Neutrophils % Seg Neutrophils # PT INR APTT POC ABG pH 7.225 L POC ABG pCO2 > 70 H POC ABG pO2 ABG pO2 ABG HCO3 ABG O2 Saturation ABG Base Excess ABG Hemoglobin Oxyhemoglobin Sodium 151 H Potassium 5.1 H Chloride Carbon Dioxide BUN 64 H Creatinine 3.5 H Glucose 117 H POC Glucose 141 H Uric Acid Calcium 7.5 L Phosphorus Magnesium AST 93 H ALT 65 H Total Creatine Kinase CK-MB (CK-2) Troponin T NT-Pro-B Natriuret Pep Albumin 2.9 L Triglycerides HDL Cholesterol Urine WBC (Auto) Urine Creatinine Urine Total Protein 05/05/19 05/05/19 05/05/19 05:00 12:02 17:46 WBC 12.0 H Hgb 11.3 L Hct MCH 27 L MCHC 30 L RDW 18.4 H Lymph % (Auto) 7.9 L [place] % (Auto) 10.2 H Lymph # 1.0 L [place] # 1.2 H Seg Neutrophils % 80.8 H Seg Neutrophils # 9.7 H PT INR APTT POC ABG pH POC ABG pCO2 POC ABG pO2 ABG pO2 ABG HCO3 ABG O2 Saturation ABG Base Excess ABG Hemoglobin Oxyhemoglobin Sodium Potassium Chloride Carbon Dioxide BUN Creatinine Glucose POC Glucose 125 H 112 H Uric Acid Calcium Phosphorus Magnesium AST ALT Total Creatine Kinase CK-MB (CK-2) Troponin T NT-Pro-B Natriuret Pep Albumin Triglycerides HDL Cholesterol Urine WBC (Auto) Urine Creatinine Urine Total Protein 05/05/19 05/06/19 05/06/19 23:42 03:58 04:45 WBC 11.4 H Hgb 10.7 L Hct 34.2 L MCH 27 L MCHC 31 L RDW 16.9 H Lymph % (Auto) [place] % (Auto) Lymph # [place] # Seg Neutrophils % Seg Neutrophils # PT INR APTT POC ABG pH POC ABG pCO2 62.4 H POC ABG pO2 111 H ABG pO2 ABG HCO3 ABG O2 Saturation ABG Base Excess ABG Hemoglobin Oxyhemoglobin Sodium Potassium Chloride Carbon Dioxide BUN Creatinine Glucose POC Glucose 128 H Uric Acid Calcium Phosphorus Magnesium AST ALT Total Creatine Kinase CK-MB (CK-2) Troponin T NT-Pro-B Natriuret Pep Albumin Triglycerides HDL Cholesterol Urine WBC (Auto) Urine Creatinine Urine Total Protein 05/06/19 05/06/19 05/06/19 04:45 05:33 12:30 WBC Hgb Hct MCH MCHC RDW Lymph % (Auto) [place] % (Auto) Lymph # [place] # Seg Neutrophils % Seg Neutrophils # PT INR APTT POC ABG pH POC ABG pCO2 POC ABG pO2 ABG pO2 ABG HCO3 ABG O2 Saturation ABG Base Excess ABG Hemoglobin Oxyhemoglobin Sodium 149 H Potassium Chloride Carbon Dioxide 31 H BUN 67 H Creatinine 3.2 H Glucose 125 H POC Glucose 117 H 116 H Uric Acid Calcium 7.5 L Phosphorus Magnesium AST ALT Total Creatine Kinase CK-MB (CK-2) Troponin T NT-Pro-B Natriuret Pep Albumin Triglycerides HDL Cholesterol Urine WBC (Auto) Urine Creatinine Urine Total Protein 05/06/19 05/06/19 05/07/19 18:34 23:16 05:22 WBC Hgb Hct MCH MCHC RDW Lymph % (Auto) [place] % (Auto) Lymph # [place] # Seg Neutrophils % Seg Neutrophils # PT INR APTT POC ABG pH POC ABG pCO2 POC ABG pO2 ABG pO2 ABG HCO3 ABG O2 Saturation ABG Base Excess ABG Hemoglobin Oxyhemoglobin Sodium Potassium Chloride Carbon Dioxide BUN Creatinine Glucose POC Glucose 128 H 143 H 166 H Uric Acid Calcium Phosphorus Magnesium AST ALT Total Creatine Kinase CK-MB (CK-2) Troponin T NT-Pro-B Natriuret Pep Albumin Triglycerides HDL Cholesterol Urine WBC (Auto) Urine Creatinine Urine Total Protein 05/07/19 05/07/19 05/07/19 06:33 07:03 09:35 WBC Hgb Hct MCH MCHC RDW Lymph % (Auto) [place] % (Auto) Lymph # [place] # Seg Neutrophils % Seg Neutrophils # PT INR APTT POC ABG pH 7.263 L 7.288 L POC ABG pCO2 POC ABG pO2 51 L 56 L ABG pO2 ABG HCO3 ABG O2 Saturation ABG Base Excess ABG Hemoglobin Oxyhemoglobin Sodium Potassium Chloride Carbon Dioxide BUN 76 H Creatinine 3.2 H Glucose 147 H POC Glucose Uric Acid Calcium 7.9 L Phosphorus Magnesium AST ALT Total Creatine Kinase CK-MB (CK-2) Troponin T NT-Pro-B Natriuret Pep Albumin Triglycerides HDL Cholesterol Urine WBC (Auto) Urine Creatinine Urine Total Protein 05/07/19 05/07/19 05/07/19 09:35 12:17 13:45 WBC 13.4 H Hgb 11.6 L Hct MCH 27 L MCHC 31 L RDW 17.5 H Lymph % (Auto) [place] % (Auto) Lymph # [place] # Seg Neutrophils % Seg Neutrophils # PT INR APTT POC ABG pH POC ABG pCO2 POC ABG pO2 ABG pO2 ABG HCO3 ABG O2 Saturation ABG Base Excess ABG Hemoglobin Oxyhemoglobin Sodium Potassium Chloride Carbon Dioxide BUN Creatinine Glucose POC Glucose 130 H Uric Acid 18.0 H Calcium Phosphorus Magnesium AST ALT Total Creatine Kinase CK-MB (CK-2) Troponin T NT-Pro-B Natriuret Pep Albumin Triglycerides HDL Cholesterol Urine WBC (Auto) Urine Creatinine Urine Total Protein 05/07/19 05/07/19 05/08/19 17:39 22:40 05:06 WBC Hgb Hct MCH MCHC RDW Lymph % (Auto) [place] % (Auto) Lymph # [place] # Seg Neutrophils % Seg Neutrophils # PT INR APTT POC ABG pH POC ABG pCO2 POC ABG pO2 ABG pO2 ABG HCO3 ABG O2 Saturation ABG Base Excess ABG Hemoglobin Oxyhemoglobin Sodium Potassium Chloride Carbon Dioxide BUN Creatinine Glucose POC Glucose 116 H 148 H Uric Acid Calcium Phosphorus Magnesium AST ALT Total Creatine Kinase CK-MB (CK-2) Troponin T NT-Pro-B Natriuret Pep Albumin Triglycerides HDL Cholesterol Urine WBC (Auto) Urine Creatinine 292.8 H Urine Total Protein 269 H 05/08/19 05/08/19 05/08/19 05:32 11:28 13:48 WBC Hgb Hct MCH MCHC RDW Lymph % (Auto) [place] % (Auto) Lymph # [place] # Seg Neutrophils % Seg Neutrophils # PT INR APTT POC ABG pH POC ABG pCO2 45.4 H POC ABG pO2 64 L ABG pO2 ABG HCO3 ABG O2 Saturation ABG Base Excess ABG Hemoglobin Oxyhemoglobin Sodium Potassium Chloride Carbon Dioxide BUN 73 H Creatinine 2.7 H Glucose 127 H POC Glucose 107 H Uric Acid Calcium 7.6 L Phosphorus Magnesium AST ALT Total Creatine Kinase CK-MB (CK-2) Troponin T NT-Pro-B Natriuret Pep Albumin Triglycerides HDL Cholesterol Urine WBC (Auto) Urine Creatinine Urine Total Protein 05/08/19 17:48 WBC Hgb Hct MCH MCHC RDW Lymph % (Auto) [place] % (Auto) Lymph # [place] # Seg Neutrophils % Seg Neutrophils # PT INR APTT POC ABG pH POC ABG pCO2 POC ABG pO2 ABG pO2 ABG HCO3 ABG O2 Saturation ABG Base Excess ABG Hemoglobin Oxyhemoglobin Sodium Potassium Chloride Carbon Dioxide BUN Creatinine Glucose POC Glucose 155 H Uric Acid Calcium Phosphorus Magnesium AST ALT Total Creatine Kinase CK-MB (CK-2) Troponin T NT-Pro-B Natriuret Pep Albumin Triglycerides HDL Cholesterol Urine WBC (Auto) Urine Creatinine Urine Total Protein Chest x-ray: report reviewed, image reviewed (RUL atelectasis or consolidation; bilateral infiltrates)
[2019-05-09] MEDS: ACETAMINOPHEN 325 MG/10.15 ML ORAL LIQD UNIT DOSE PO SCH ×3 (00:27→21:28)
[2019-05-09] MEDS: fentaNYL DRIP Premix 2,000 MCG/100 ML BAG IV SCH ×11 (00:48→23:23)
[2019-05-09] MEDS: LORazepam 2 MG/ML VIAL IV PRN ×3 (04:04→16:25)
[2019-05-09 05:25] LABS: Mean Corpuscular HGB Conc 29 % (32-34); Mean Corpuscular Volume 96 fl (84-94); Platelet Count 154 K/mm3 (140-440); Red Blood Count 3.07 M/mm3 (3.65-5.03); Red Cell Distribution Width 18.1 % (13.2-15.2)
[2019-05-09 05:39] LABS: Hematocrit 29.3 % (35.5-45.6); Hemoglobin 8.5 gm/dl (11.8-15.2)
[2019-05-09 06:12] LABS: BUN/Creatinine Ratio TNR; Blood Urea Nitrogen TNR mg/dL (9-20); Calcium TNR mg/dL (8.4-10.2)
[2019-05-09 06:13] LABS: Alanine Aminotransferase TNR units/L (7-56); Albumin TNR g/dL (3.9-5); Hemolysis Index TNR
[2019-05-09 08:09] LABS: Albumin 1.9 g/dL (3.9-5); Calcium 8.2 mg/dL (8.4-10.2)
[2019-05-09] MEDS: D5W/0.45% NACL 1,000 ML IV SCH ×2 (08:31→18:33)
[2019-05-09] MEDS: METOPROLOL TARTRATE 25 MG TAB PO SCH ×2 (09:07→21:40)
[2019-05-09] MEDS: ENOXAPARIN 30 MG/0.3 ML INJ SUB-Q SCH (09:08)
[2019-05-09] MEDS: FLUDROCORTISONE 0.1 MG TAB PO SCH (09:08)
[2019-05-09] MEDS: FAMOTIDINE 20 MG TAB PO SCH (09:08)
[2019-05-09] MEDS: cefTRIAXone/NS 2 GM/100 ML 2 GM/100 ML BAG IV SCH ×2 (09:09→21:39)
[2019-05-09] MEDS: SODIUM CHLORIDE 0.9% IV SCH (09:16)
[2019-05-09] MEDS: ACYCLOVIR IV SCH (09:16)
--- NOTE | 2019-05-09 09:23 | Progress Note ---
Subjective Date of service: 05/09/19 Principal diagnosis: HF; acute hypoxemic resp failure, SIRS, CARLA Interval history: please see my dictated note on this patient very little evidence of any rec overy prognosis is very unfavorable since I have seen no trending to recovery Objective - Vital Sign Vital Signs - 12hr 05/08/19 05/08/19 05/08/19 21:30 21:45 22:00 Temperature Pulse Rate 74 76 74 Respiratory 24 20 20 Rate Blood Pressure 128/64 132/67 132/64 O2 Sat by Pulse 98 98 99 Oximetry 05/08/19 05/08/19 05/08/19 22:16 22:30 22:45 Temperature Pulse Rate 116 H 86 83 Respiratory 13 19 12 Rate Blood Pressure 150/85 141/67 131/62 O2 Sat by Pulse 81 L 92 95 Oximetry 05/08/19 05/08/19 05/08/19 23:00 23:15 23:16 Temperature Pulse Rate 79 78 77 Respiratory 13 12 Rate Blood Pressure 139/66 126/65 139/66 O2 Sat by Pulse 95 95 96 Oximetry 05/08/19 05/08/19 05/09/19 23:30 23:45 00:00 Temperature 98.7 F Pulse Rate 74 75 74 Respiratory 21 15 20 Rate Blood Pressure 127/55 131/64 117/57 O2 Sat by Pulse 95 99 98 Oximetry 05/09/19 05/09/19 05/09/19 00:08 00:15 00:30 Temperature Pulse Rate 75 73 76 Respiratory 22 16 21 Rate Blood Pressure 117/57 138/57 133/67 O2 Sat by Pulse 98 98 98 Oximetry 05/09/19 05/09/19 05/09/19 00:45 01:00 01:16 Temperature Pulse Rate 75 78 101 H Respiratory 22 22 15 Rate Blood Pressure 140/60 133/65 117/37 O2 Sat by Pulse 97 98 92 Oximetry 05/09/19 05/09/19 05/09/19 01:30 01:45 02:00 Temperature Pulse Rate 100 H 91 H Respiratory 14 22 Rate Blood Pressure 117/37 139/53 136/58 O2 Sat by Pulse 83 L 85 90 Oximetry 05/09/19 05/09/19 05/09/19 02:16 02:30 02:45 Temperature Pulse Rate 88 86 85 Respiratory 22 23 22 Rate Blood Pressure 124/52 132/61 122/61 O2 Sat by Pulse 92 92 93 Oximetry 05/09/19 05/09/19 05/09/19 03:00 03:15 03:30 Temperature Pulse Rate 85 83 83 Respiratory 20 16 22 Rate Blood Pressure 117/63 132/64 134/70 O2 Sat by Pulse 93 97 99 Oximetry 05/09/19 05/09/19 05/09/19 03:45 03:47 03:57 Temperature 98.8 F Pulse Rate 88 97 H Respiratory 22 Rate Blood Pressure 139/78 139/78 O2 Sat by Pulse 100 93 Oximetry 05/09/19 05/09/19 05/09/19 04:00 04:15 04:30 Temperature Pulse Rate 112 H 91 H 86 Respiratory 28 H 13 15 Rate Blood Pressure 139/78 128/56 128/58 O2 Sat by Pulse 68 L 90 90 Oximetry 05/09/19 05/09/19 05/09/19 04:45 05:00 05:16 Temperature Pulse Rate 86 88 109 H Respiratory 15 12 Rate Blood Pressure 121/67 108/66 108/66 O2 Sat by Pulse 95 91 83 L Oximetry 05/09/19 05/09/19 05/09/19 05:30 05:45 06:00 Temperature Pulse Rate 96 H 88 84 Respiratory 19 19 22 Rate Blood Pressure 122/56 117/61 119/66 O2 Sat by Pulse 85 84 91 Oximetry 05/09/19 05/09/19 05/09/19 06:15 06:30 06:45 Temperature Pulse Rate 83 85 84 Respiratory 17 22 16 Rate Blood Pressure 116/66 107/71 107/65 O2 Sat by Pulse 98 97 97 Oximetry 05/09/19 05/09/19 05/09/19 07:00 07:15 07:30 Temperature Pulse Rate 82 78 76 Respiratory 20 21 23 Rate Blood Pressure 115/70 116/68 128/66 O2 Sat by Pulse 98 98 99 Oximetry 05/09/19 05/09/19 05/09/19 07:45 07:51 08:00 Temperature 98.0 F Pulse Rate 76 76 75 Respiratory 21 25 H Rate Blood Pressure 119/68 119/68 114/64 O2 Sat by Pulse 100 100 100 Oximetry 05/09/19 05/09/19 08:15 09:07 Temperature Pulse Rate 76 79 Respiratory 20 Rate Blood Pressure 115/63 110/56 O2 Sat by Pulse 100 Oximetry - Laboratory Findings CBC and BMP: 05/09/19 04:50 05/09/19 07:24 Abnormal Lab Findings: Abnormal Labs 05/01/19 05/01/19 05/01/19 17:50 19:26 22:36 WBC RBC Hgb Hct MCV MCH MCHC RDW Lymph % (Auto) Hickman % (Auto) Lymph # Hickman # Seg Neutrophils % Seg Neutrophils # PT INR APTT POC ABG pH 7.272 L 7.331 L POC ABG pCO2 52.8 H POC ABG pO2 ABG pO2 ABG HCO3 ABG O2 Saturation ABG Base Excess ABG Hemoglobin Oxyhemoglobin Sodium 136 L Potassium 6.5 H* Chloride 97.2 L Carbon Dioxide BUN 60 H Creatinine Glucose 113 H POC Glucose Uric Acid Calcium Phosphorus Magnesium 2.40 H AST 139 H ALT 154 H Total Creatine Kinase CK-MB (CK-2) Troponin T NT-Pro-B Natriuret Pep Total Protein Albumin 3.8 L Triglycerides HDL Cholesterol Urine WBC (Auto) Urine Creatinine Urine Total Protein 05/01/19 05/01/19 05/01/19 Unknown Unknown Unknown WBC 16.1 H RBC Hgb Hct MCV MCH MCHC RDW 17.2 H Lymph % (Auto) Hickman % (Auto) 9.6 H Lymph # Hickman # 1.5 H Seg Neutrophils % 73.0 H Seg Neutrophils # 11.7 H PT 15.4 H INR 1.23 H APTT 22.7 L POC ABG pH POC ABG pCO2 POC ABG pO2 ABG pO2 ABG HCO3 ABG O2 Saturation ABG Base Excess ABG Hemoglobin Oxyhemoglobin Sodium Potassium Chloride Carbon Dioxide BUN Creatinine Glucose POC Glucose Uric Acid Calcium Phosphorus Magnesium AST ALT Total Creatine Kinase CK-MB (CK-2) Troponin T NT-Pro-B Natriuret Pep 6831 H Total Protein Albumin Triglycerides HDL Cholesterol Urine WBC (Auto) Urine Creatinine Urine Total Protein 05/01/19 05/02/19 05/02/19 Unknown 00:06 00:06 WBC RBC Hgb Hct MCV MCH MCHC RDW Lymph % (Auto) [place]ickman % (Auto) Lymph # [place] # Seg Neutrophils % Seg Neutrophils # PT INR APTT POC ABG pH POC ABG pCO2 POC ABG pO2 ABG pO2 ABG HCO3 ABG O2 Saturation ABG Base Excess ABG Hemoglobin Oxyhemoglobin Sodium Potassium Chloride Carbon Dioxide BUN Creatinine Glucose POC Glucose Uric Acid Calcium Phosphorus 4.90 H Magnesium AST ALT Total Creatine Kinase 226 H CK-MB (CK-2) 5.7 H Troponin T 0.044 H NT-Pro-B Natriuret Pep Total Protein Albumin Triglycerides 182 H HDL Cholesterol 18 L Urine WBC (Auto) Urine Creatinine Urine Total Protein 05/02/19 05/02/19 05/02/19 02:08 04:40 04:41 WBC 17.6 H RBC Hgb Hct MCV MCH 27 L MCHC RDW 17.4 H Lymph % (Auto) 10.2 L Hickman % (Auto) 11.0 H Lymph # Hickman # 1.9 H Seg Neutrophils % 78.0 H Seg Neutrophils # 13.8 H PT INR APTT POC ABG pH POC ABG pCO2 46.8 H POC ABG pO2 63 L ABG pO2 ABG HCO3 ABG O2 Saturation ABG Base Excess ABG Hemoglobin Oxyhemoglobin Sodium Potassium Chloride 96.3 L Carbon Dioxide BUN 63 H Creatinine 1.7 H Glucose POC Glucose Uric Acid Calcium Phosphorus Magnesium AST ALT Total Creatine Kinase CK-MB (CK-2) Troponin T NT-Pro-B Natriuret Pep Total Protein Albumin Triglycerides HDL Cholesterol Urine WBC (Auto) Urine Creatinine Urine Total Protein 05/02/19 05/02/19 05/02/19 04:41 04:41 16:05 WBC RBC Hgb Hct MCV MCH MCHC RDW Lymph % (Auto) [place]ickman % (Auto) Lymph # [place] # Seg Neutrophils % Seg Neutrophils # PT INR APTT POC ABG pH POC ABG pCO2 POC ABG pO2 ABG pO2 66.6 L ABG HCO3 31.9 H ABG O2 Saturation 92.5 L ABG Base Excess 5.8 H ABG Hemoglobin 13.3 L Oxyhemoglobin 90.6 L Sodium Potassium Chloride 97.2 L Carbon Dioxide BUN 61 H Creatinine 1.8 H Glucose POC Glucose Uric Acid Calcium Phosphorus Magnesium AST ALT Total Creatine Kinase CK-MB (CK-2) 5.2 H Troponin T 0.067 H D NT-Pro-B Natriuret Pep Total Protein Albumin Triglycerides HDL Cholesterol Urine WBC (Auto) Urine Creatinine Urine Total Protein 05/02/19 05/03/19 05/03/19 20:39 04:35 05:05 WBC 11.8 H RBC Hgb Hct MCV MCH 27 L MCHC 31 L RDW 17.2 H Lymph % (Auto) [place]ickman % (Auto) Lymph # [place] # Seg Neutrophils % Seg Neutrophils # PT INR APTT POC ABG pH POC ABG pCO2 53.6 H 54.0 H POC ABG pO2 55 L 63 L ABG pO2 ABG HCO3 ABG O2 Saturation ABG Base Excess ABG Hemoglobin Oxyhemoglobin Sodium Potassium Chloride Carbon Dioxide BUN Creatinine Glucose POC Glucose Uric Acid Calcium Phosphorus Magnesium AST ALT Total Creatine Kinase CK-MB (CK-2) Troponin T NT-Pro-B Natriuret Pep Total Protein Albumin Triglycerides HDL Cholesterol Urine WBC (Auto) Urine Creatinine Urine Total Protein 05/03/19 05/03/19 05/03/19 05:05 10:55 16:48 WBC RBC Hgb Hct MCV MCH MCHC RDW Lymph % (Auto) Hickman % (Auto) Lymph # [place] # Seg Neutrophils % Seg Neutrophils # PT INR APTT POC ABG pH 7.604 H POC ABG pCO2 POC ABG pO2 58 L ABG pO2 ABG HCO3 ABG O2 Saturation ABG Base Excess ABG Hemoglobin Oxyhemoglobin Sodium Potassium Chloride Carbon Dioxide BUN 52 H Creatinine 1.9 H Glucose 103 H POC Glucose Uric Acid Calcium Phosphorus Magnesium AST ALT Total Creatine Kinase CK-MB (CK-2) Troponin T NT-Pro-B Natriuret Pep Total Protein Albumin Triglycerides HDL Cholesterol Urine WBC (Auto) 33.0 H Urine Creatinine Urine Total Protein 05/04/19 05/04/19 05/04/19 04:49 06:50 06:50 WBC 16.0 H RBC Hgb Hct MCV MCH 27 L MCHC 31 L RDW 17.8 H Lymph % (Auto) [place]ickman % (Auto) Lymph # [place] # Seg Neutrophils % Seg Neutrophils # PT INR APTT POC ABG pH 7.273 L POC ABG pCO2 POC ABG pO2 ABG pO2 ABG HCO3 ABG O2 Saturation ABG Base Excess ABG Hemoglobin Oxyhemoglobin Sodium 148 H Potassium 5.5 H Chloride Carbon Dioxide BUN 53 H Creatinine 3.3 H D Glucose 106 H POC Glucose Uric Acid Calcium 8.3 L Phosphorus Magnesium AST ALT Total Creatine Kinase CK-MB (CK-2) Troponin T NT-Pro-B Natriuret Pep Total Protein Albumin Triglycerides HDL Cholesterol Urine WBC (Auto) Urine Creatinine Urine Total Protein 05/05/19 05/05/19 05/05/19 00:05 04:30 05:00 WBC RBC Hgb Hct MCV MCH MCHC RDW Lymph % (Auto) [place]ickman % (Auto) Lymph # [place] # Seg Neutrophils % Seg Neutrophils # PT INR APTT POC ABG pH 7.225 L POC ABG pCO2 > 70 H POC ABG pO2 ABG pO2 ABG HCO3 ABG O2 Saturation ABG Base Excess ABG Hemoglobin Oxyhemoglobin Sodium 151 H Potassium 5.1 H Chloride Carbon Dioxide BUN 64 H Creatinine 3.5 H Glucose 117 H POC Glucose 141 H Uric Acid Calcium 7.5 L Phosphorus Magnesium AST 93 H ALT 65 H Total Creatine Kinase CK-MB (CK-2) Troponin T NT-Pro-B Natriuret Pep Total Protein Albumin 2.9 L Triglycerides HDL Cholesterol Urine WBC (Auto) Urine Creatinine Urine Total Protein 05/05/19 05/05/19 05/05/19 05:00 12:02 17:46 WBC 12.0 H RBC Hgb 11.3 L Hct MCV MCH 27 L MCHC 30 L RDW 18.4 H Lymph % (Auto) 7.9 L [place]ickman % (Auto) 10.2 H Lymph # 1.0 L Hickman # 1.2 H Seg Neutrophils % 80.8 H Seg Neutrophils # 9.7 H PT INR APTT POC ABG pH POC ABG pCO2 POC ABG pO2 ABG pO2 ABG HCO3 ABG O2 Saturation ABG Base Excess ABG Hemoglobin Oxyhemoglobin Sodium Potassium Chloride Carbon Dioxide BUN Creatinine Glucose POC Glucose 125 H 112 H Uric Acid Calcium Phosphorus Magnesium AST ALT Total Creatine Kinase CK-MB (CK-2) Troponin T NT-Pro-B Natriuret Pep Total Protein Albumin Triglycerides HDL Cholesterol Urine WBC (Auto) Urine Creatinine Urine Total Protein 05/05/19 05/06/19 05/06/19 23:42 03:58 04:45 WBC 11.4 H RBC Hgb 10.7 L Hct 34.2 L MCV MCH 27 L MCHC 31 L RDW 16.9 H Lymph % (Auto) [place] % (Auto) Lymph # [place] # Seg Neutrophils % Seg Neutrophils # PT INR APTT POC ABG pH POC ABG pCO2 62.4 H POC ABG pO2 111 H ABG pO2 ABG HCO3 ABG O2 Saturation ABG Base Excess ABG Hemoglobin Oxyhemoglobin Sodium Potassium Chloride Carbon Dioxide BUN Creatinine Glucose POC Glucose 128 H Uric Acid Calcium Phosphorus Magnesium AST ALT Total Creatine Kinase CK-MB (CK-2) Troponin T NT-Pro-B Natriuret Pep Total Protein Albumin Triglycerides HDL Cholesterol Urine WBC (Auto) Urine Creatinine Urine Total Protein 05/06/19 05/06/1905/06/19 04:45 05:33 12:30 WBC RBC Hgb Hct MCV MCH MCHC RDW Lymph % (Auto) [place]ickman % (Auto) Lymph # [place] # Seg Neutrophils % Seg Neutrophils # PT INR APTT POC ABG pH POC ABG pCO2 POC ABG pO2 ABG pO2 ABG HCO3 ABG O2 Saturation ABG Base Excess ABG Hemoglobin Oxyhemoglobin Sodium 149 H Potassium Chloride Carbon Dioxide 31 H BUN 67 H Creatinine 3.2 H Glucose 125 H POC Glucose 117 H 116 H Uric Acid Calcium 7.5 L Phosphorus Magnesium AST ALT Total Creatine Kinase CK-MB (CK-2) Troponin T NT-Pro-B Natriuret Pep Total Protein Albumin Triglycerides HDL Cholesterol Urine WBC (Auto) Urine Creatinine Urine Total Protein 05/06/19 05/06/19 05/07/19 18:34 23:16 05:22 WBC RBC Hgb Hct MCV MCH MCHC RDW Lymph % (Auto) [place]ickman % (Auto) Lymph # [place] # Seg Neutrophils % Seg Neutrophils # PT INR APTT POC ABG pH POC ABG pCO2 POC ABG pO2 ABG pO2 ABG HCO3 ABG O2 Saturation ABG Base Excess ABG Hemoglobin Oxyhemoglobin Sodium Potassium Chloride Carbon Dioxide BUN Creatinine Glucose POC Glucose 128 H 143 H 166 H Uric Acid Calcium Phosphorus Magnesium AST ALT Total Creatine Kinase CK-MB (CK-2) Troponin T NT-Pro-B Natriuret Pep Total Protein Albumin Triglycerides HDL Cholesterol Urine WBC (Auto) Urine Creatinine Urine Total Protein 05/07/19 05/07/19 05/07/19 06:33 07:03 09:35 WBC RBC Hgb Hct MCV MCH MCHC RDW Lymph % (Auto) [place] % (Auto) Lymph # [place] # Seg Neutrophils % Seg Neutrophils # PT INR APTT POC ABG pH 7.263 L 7.288 L POC ABG pCO2 POC ABG pO2 51 L 56 L ABG pO2 ABG HCO3 ABG O2 Saturation ABG Base Excess ABG Hemoglobin Oxyhemoglobin Sodium Potassium Chloride Carbon Dioxide BUN 76 H Creatinine 3.2 H Glucose 147 H POC Glucose Uric Acid Calcium 7.9 L Phosphorus Magnesium AST ALT Total Creatine Kinase CK-MB (CK-2) Troponin T NT-Pro-B Natriuret Pep Total Protein Albumin Triglycerides HDL Cholesterol Urine WBC (Auto) Urine Creatinine Urine Total Protein 05/07/19 05/07/19 05/07/19 09:35 12:17 13:45 WBC 13.4 H RBC Hgb 11.6 L Hct MCV MCH 27 L MCHC 31 L RDW 17.5 H Lymph % (Auto) [place] % (Auto) Lymph # [place] # Seg Neutrophils % Seg Neutrophils # PT INR APTT POC ABG pH POC ABG pCO2 POC ABG pO2 ABG pO2 ABG HCO3 ABG O2 Saturation ABG Base Excess ABG Hemoglobin Oxyhemoglobin Sodium Potassium Chloride Carbon Dioxide BUN Creatinine Glucose POC Glucose 130 H Uric Acid 18.0 H Calcium Phosphorus Magnesium AST ALT Total Creatine Kinase CK-MB (CK-2) Troponin T NT-Pro-B Natriuret Pep Total Protein Albumin Triglycerides HDL Cholesterol Urine WBC (Auto) Urine Creatinine Urine Total Protein 05/07/19 05/07/19 05/08/19 17:39 22:40 05:06 WBC RBC Hgb Hct MCV MCH MCHC RDW Lymph % (Auto) [place] % (Auto) Lymph # [place] # Seg Neutrophils % Seg Neutrophils # PT INR APTT POC ABG pH POC ABG pCO2 POC ABG pO2 ABG pO2 ABG HCO3 ABG O2 Saturation ABG Base Excess ABG Hemoglobin Oxyhemoglobin Sodium Potassium Chloride Carbon Dioxide BUN Creatinine Glucose POC Glucose 116 H 148 H Uric Acid Calcium Phosphorus Magnesium AST ALT Total Creatine Kinase CK-MB (CK-2) Troponin T NT-Pro-B Natriuret Pep Total Protein Albumin Triglycerides HDL Cholesterol Urine WBC (Auto) Urine Creatinine 292.8 H Urine Total Protein 269 H 05/08/19 05/08/19 05/08/19 05:32 11:28 13:48 WBC RBC Hgb Hct MCV MCH MCHC RDW Lymph % (Auto) [place]man % (Auto) Lymph # [place] # Seg Neutrophils % Seg Neutrophils # PT INR APTT POC ABG pH POC ABG pCO2 45.4 H POC ABG pO2 64 L ABG pO2 ABG HCO3 ABG O2 Saturation ABG Base Excess ABG Hemoglobin Oxyhemoglobin Sodium Potassium Chloride Carbon Dioxide BUN 73 H Creatinine 2.7 H Glucose 127 H POC Glucose 107 H Uric Acid Calcium 7.6 L Phosphorus Magnesium AST ALT Total Creatine Kinase CK-MB (CK-2) Troponin T NT-Pro-B Natriuret Pep Total Protein Albumin Triglycerides HDL Cholesterol Urine WBC (Auto) Urine Creatinine Urine Total Protein 05/08/19 05/09/19 05/09/19 17:48 04:50 04:53 WBC RBC 3.07 L Hgb 8.5 L D Hct 29.3 L D MCV 96 H MCH MCHC 29 L RDW 18.1 H Lymph % (Auto) [place]man % (Auto) Lymph # [place] # Seg Neutrophils % Seg Neutrophils # PT INR APTT POC ABG pH 7.316 L POC ABG pCO2 66.0 H POC ABG pO2 69 L ABG pO2 ABG HCO3 ABG O2 Saturation ABG Base Excess ABG Hemoglobin Oxyhemoglobin Sodium Potassium Chloride Carbon Dioxide BUN Creatinine Glucose POC Glucose 155 H Uric Acid Calcium Phosphorus Magnesium AST ALT Total Creatine Kinase CK-MB (CK-2) Troponin T NT-Pro-B Natriuret Pep Total Protein Albumin Triglycerides HDL Cholesterol Urine WBC (Auto) Urine Creatinine Urine Total Protein 05/09/19 05/09/19 05:46 07:24 WBC RBC Hgb Hct MCV MCH MCHC RDW Lymph % (Auto) [place] % (Auto) Lymph # [place] # Seg Neutrophils % Seg Neutrophils # PT INR APTT POC ABG pH POC ABG pCO2 POC ABG pO2 ABG pO2 ABG HCO3 ABG O2 Saturation ABG Base Excess ABG Hemoglobin Oxyhemoglobin Sodium Potassium Chloride Carbon Dioxide BUN 73 H Creatinine 2.4 H Glucose 153 H POC Glucose 123 H Uric Acid Calcium 8.2 L Phosphorus Magnesium AST 45 H ALT Total Creatine Kinase CK-MB (CK-2) Troponin T NT-Pro-B Natriuret Pep Total Protein 6.0 L Albumin 1.9 L Triglycerides HDL Cholesterol Urine WBC (Auto) Urine Creatinine Urine Total Protein
--- NOTE | 2019-05-09 10:45 | Progress Note ---
Assessment and Plan Cultures: Blood cultures: no growth thus far Sputum culture: no growth thus far urine culture: no growth resp culture: no growth A/P: 34-year-old male with obesity admitted with: #Fever, SIRS: Patient was afebrile for the first 2 days of hospitalization, then he developed a fever of 101.2F. ?aspiration related. Apparently was using CPAP. Now febrile again, ?UTI. UA showed pyuria, had indwelling Berkowitz which was removed. Urine culture with no growth. #Acute hypoxic hypercapneic respiratory failure, possibly obesity hypoventilation syndrome: on the vent. Pulmonary managing. #Morbid obesity #CARLA: creatinine elevated. dose abx accordingly. #Elevated LFTs: RUQ US showed fatty liver, small GB sludge. Improving. #Acute encephalopathy with ?seizure activity: persistent fevers. Agree with possible meningitis coverage, discussed with Dr. Chen. Recs: Fevers better. continue empiric meningitis coverage with Ceftriaxone, Vancomycin relatively low suspicion for HSV meningoencephalitis, will d/c Acyclovir I suspect initial non-response to abx may have been due to inadequate dosing in this patient with morbid obesity When feasible LP and possible MRI brain (though may be limited due to patient's weight) Burke Wilks MD, FACP [facility] ([facility] C: [phone] O: [phone] F: [phone] Subjective Date of service: 05/09/19 Principal diagnosis: HF; acute hypoxemic resp failure, SIRS, CARLA Interval history: Fevers have resolved. Remains intubated, sedated, continues to have high vent requirements and frequent desaturations. Objective - Exam Narrative Exam: Physical Exam: Constitutional: sedated, intubated. Morbid obesity Head, Ears, Nose: Normocephalic, atraumatic. External ears, nose normal Eyes: Conjunctivae/corneas clear. No icterus. No ptosis. Neck: intubated Oral: intubated Cardiovascular: S1, S2 normal. Respiratory: Good air entry, clear to auscultation bilaterally GI: Soft, non-tender; bowel sounds normal. No peritoneal signs Musculoskeletal: No pedal edema, no cyanosis. Skin: No rash or abscess Hem/Lymphatic: No palpable cervical or supraclavicular nodes. No lymphangitis Psych: no agitation Neurological: sedated, intubated, on vent - Constitutional Vitals: Vital Signs Temp Pulse Resp BP Pulse Ox 98.0 F 74 13 119/58 99 05/09/19 08:00 05/09/19 10:00 05/09/19 10:00 05/09/19 10:00 05/09/19 10:00 Temperature -Last 24 Hours Temperature 98.0 F Temperature 98 F Temperature 98.8 F Temperature 98.7 F Temperature 98.5 F Temperature 97.9 F Temperature 97.9 F Temperature 97.9 F - Labs CBC & Chem 7: 05/09/19 04:50 05/09/19 07:24 Labs: Abnormal lab results 05/08/19 05/08/19 05/08/19 Range/Units 11:28 13:48 17:48 RBC (3.65-5.03) M/mm3 Hgb (11.8-15.2) gm/dl Hct (35.5-45.6) % MCV (84-94) fl MCHC (32-34) % RDW (13.2-15.2) % POC ABG pH (7.35-7.45) POC ABG pCO2 (35-45) POC ABG pO2 (80-105) BUN 73 H (9-20) mg/dL Creatinine 2.7 H (0.8-1.5) mg/dL Glucose 127 H (75-100) mg/dL POC Glucose 107 H 155 H (70-105) Calcium 7.6 L (8.4-10.2) mg/dL AST (5-40) units/L Total Protein (6.3-8.2) g/dL Albumin (3.9-5) g/dL 05/09/19 05/09/19 05/09/19 Range/Units 04:50 04:53 05:46 RBC 3.07 L (3.65-5.03) M/mm3 Hgb 8.5 L D (11.8-15.2) gm/dl Hct 29.3 L D (35.5-45.6) % MCV 96 H (84-94) fl MCHC 29 L (32-34) % RDW 18.1 H (13.2-15.2) % POC ABG pH 7.316 L (7.35-7.45) POC ABG pCO2 66.0 H (35-45) POC ABG pO2 69 L (80-105) BUN (9-20) mg/dL Creatinine (0.8-1.5) mg/dL Glucose (75-100) mg/dL POC Glucose 123 H (70-105) Calcium (8.4-10.2) mg/dL AST (5-40) units/L Total Protein (6.3-8.2) g/dL Albumin (3.9-5) g/dL 05/09/19 Range/Units 07:24 RBC (3.65-5.03) M/mm3 Hgb (11.8-15.2) gm/dl Hct (35.5-45.6) % MCV (84-94) fl MCHC (32-34) % RDW (13.2-15.2) % POC ABG pH (7.35-7.45) POC ABG pCO2 (35-45) POC ABG pO2 (80-105) BUN 73 H (9-20) mg/dL Creatinine 2.4 H (0.8-1.5) mg/dL Glucose 153 H (75-100) mg/dL POC Glucose (70-105) Calcium 8.2 L (8.4-10.2) mg/dL AST 45 H (5-40) units/L Total Protein 6.0 L (6.3-8.2) g/dL Albumin 1.9 L (3.9-5) g/dL
--- NOTE | 2019-05-09 11:37 | Progress Note ---
Subjective Principal diagnosis: HF; acute hypoxemic resp failure, SIRS, CARLA Interval history: Patient was seen today for follow-up on multiple renal related issues his creatinine is currently improving has been admitted here with respiratory failure bradycardia hypotension and hypoxemia Interdisciplinary notes were also reviewed Vitals intake output medications were reviewed Past medical history: Reviewed Family, social history: Reviewed Allergies: Reviewed Physical examination General: No acute distress/ intubated Vitals: Reviewed HEENT: Oral mucosa moist no icterus Neck: Supple no thyromegaly nodular mass or JVD Chest: bilateral basilar crackles, Heart: Regular rate and rhythm S1-S2 heard no S3-S4 Abdomen: Soft nontender no suprapubic masses no organomegaly Extremity: Dry skin less than 1+ edema Psych: No evidence of any agitation and aggression noted Derm: No petechial rash Assessment and plan: Acute kidney injury patient's baseline creatinine is unclear, creatinine was 1.9 on 05/03/2019 As of today his blood pressure is well controlled 119/58 ultrasonogram right kidney was poorly visualized need a follow-up ultrasonogram at a later date His creatinine is trending down 2.4 with conservative measures Does have some evidence of volume overload when necessary diuresis can be given Anemia, hemoglobin currently at around 8.5 which was around 11.62 days ago he needs close monitoring of his hemoglobin and hematocrit Hypernatremia sodium was 151 currently 142 Mild hyperkalemia 5.1 on May 05 currently 4.2 No indication for renal placement therapy Protein creatinine ratio is slightly less than 1 g Vancomycin level satisfactory nontoxic hepatitis profile negative Encephalopathy, seizure disorder, hypoxic respiratory failure, fever being followed by infectious disease Admitted with severe respiratory failure oxygen saturation was down to 28% with heart rate in 50s, has been intubated and resuscitated since was also noted to have pulmonary edema Creatinine upon admission was 1.8 to begin with Urinalysis showed evidence of 33 white blood cells 8 red blood cells less than 15 mg protein in the urine Fever: Multifactorial being followed by infectious disease renal prognosis: Guarded We'll continue to follow and make recommendation from renal standpoint Objective - Vital Signs Vital signs: Vital Signs - 12hr 05/08/19 05/09/19 05/09/19 23:45 00:00 00:08 Temperature 98.7 F Pulse Rate 75 74 75 Pulse Rate [ From Monitor] Respiratory 15 20 22 Rate Blood Pressure 131/64 117/57 117/57 O2 Sat by Pulse 99 98 98 Oximetry 05/09/19 05/09/19 05/09/19 00:15 00:30 00:45 Temperature Pulse Rate 73 76 75 Pulse Rate [ From Monitor] Respiratory 16 21 22 Rate Blood Pressure 138/57 133/67 140/60 O2 Sat by Pulse 98 98 97 Oximetry 05/09/19 05/09/19 05/09/19 01:00 01:16 01:30 Temperature Pulse Rate 78 101 H Pulse Rate [ From Monitor] Respiratory 22 15 Rate Blood Pressure 133/65 117/37 117/37 O2 Sat by Pulse 98 92 83 L Oximetry 05/09/19 05/09/19 05/09/19 01:45 02:00 02:16 Temperature Pulse Rate 100 H 91 H 88 Pulse Rate [ From Monitor] Respiratory 14 22 22 Rate Blood Pressure 139/53 136/58 124/52 O2 Sat by Pulse 85 90 92 Oximetry 05/09/19 05/09/19 05/09/19 02:30 02:45 03:00 Temperature Pulse Rate 86 85 85 Pulse Rate [ From Monitor] Respiratory 23 22 20 Rate Blood Pressure 132/61 122/61 117/63 O2 Sat by Pulse 92 93 93 Oximetry 05/09/19 05/09/19 05/09/19 03:15 03:30 03:45 Temperature Pulse Rate 83 83 88 Pulse Rate [ From Monitor] Respiratory 16 22 22 Rate Blood Pressure 132/64 134/70 139/78 O2 Sat by Pulse 97 99 100 Oximetry 05/09/19 05/09/19 05/09/19 03:47 03:57 04:00 Temperature 98.8 F Pulse Rate 97 H 112 H Pulse Rate [ From Monitor] Respiratory 28 H Rate Blood Pressure 139/78 139/78 O2 Sat by Pulse 93 68 L Oximetry 05/09/19 05/09/19 05/09/19 04:15 04:30 04:45 Temperature Pulse Rate 91 H 86 86 Pulse Rate [ From Monitor] Respiratory 13 15 15 Rate Blood Pressure 128/56 128/58 121/67 O2 Sat by Pulse 90 90 95 Oximetry 05/09/19 05/09/19 05/09/19 05:00 05:16 05:30 Temperature Pulse Rate 88 109 H 96 H Pulse Rate [ From Monitor] Respiratory 12 19 Rate Blood Pressure 108/66 108/66 122/56 O2 Sat by Pulse 91 83 L 85 Oximetry 05/09/19 05/09/19 05/09/19 05:45 06:00 06:15 Temperature Pulse Rate 88 84 83 Pulse Rate [ From Monitor] Respiratory 19 22 17 Rate Blood Pressure 117/61 119/66 116/66 O2 Sat by Pulse 84 91 98 Oximetry 05/09/19 05/09/19 05/09/19 06:30 06:45 07:00 Temperature Pulse Rate 85 84 82 Pulse Rate [ From Monitor] Respiratory 22 16 20 Rate Blood Pressure 107/71 107/65 115/70 O2 Sat by Pulse 97 97 98 Oximetry 05/09/19 05/09/19 05/09/19 07:15 07:30 07:45 Temperature Pulse Rate 78 76 76 Pulse Rate [ From Monitor] Respiratory 21 23 21 Rate Blood Pressure 116/68 128/66 119/68 O2 Sat by Pulse 98 99 100 Oximetry 05/09/19 05/09/19 05/09/19 07:51 08:00 08:15 Temperature 98.0 F Pulse Rate 76 76 76 Pulse Rate [ 81 From Monitor] Respiratory 25 H 20 Rate Blood Pressure 119/68 114/64 115/63 O2 Sat by Pulse 100 100 100 Oximetry 05/09/19 05/09/19 05/09/19 08:30 08:45 09:00 Temperature Pulse Rate 76 76 78 Pulse Rate [ From Monitor] Respiratory 16 24 20 Rate Blood Pressure 121/56 119/66 110/56 O2 Sat by Pulse 98 98 99 Oximetry 05/09/19 05/09/19 05/09/19 09:07 09:15 09:30 Temperature Pulse Rate 79 76 76 Pulse Rate [ From Monitor] Respiratory 21 21 Rate Blood Pressure 110/56 125/64 109/59 O2 Sat by Pulse 98 98 Oximetry 05/09/19 05/09/19 09:45 10:00 Temperature Pulse Rate 75 74 Pulse Rate [ From Monitor] Respiratory 22 13 Rate Blood Pressure 113/53 119/58 O2 Sat by Pulse 98 99 Oximetry - Lab 05/09/19 04:50 05/09/19 07:24 Most recent lab results ABG pH 7.403 pH Units (7.350-7.450) 05/02/19 16:05 ABG pCO2 52.3 mm Hg 05/02/19 16:05 ABG pO2 66.6 mm Hg (80.0-90.0) L 05/02/19 16:05 ABG HCO3 31.9 mmol/L (20.0-26.0) H 05/02/19 16:05 ABG O2 Saturation 92.5 % (95.0-99.0) L 05/02/19 16:05 Calcium 8.2 mg/dL (8.4-10.2) L 05/09/19 07:24 Phosphorus 4.90 mg/dL (2.5-4.5) H 05/02/19 00:06 Magnesium 2.30 mg/dL (1.7-2.3) 05/02/19 00:06 Urine Creatinine 292.8 mg/dL (0.1-20.0) H 05/07/19 22:40 Urine Sodium 11 mmol/L 05/07/19 22:40 Urine Total Protein 269 mg/dL (5-11.8) H 05/07/19 22:40 Medications & Allergies - Medications Allergies/Adverse Reactions: Allergies No Known Allergies Allergy (Verified 05/01/19 20:27) Home Medications: Home Medications Medication Instructions Recorded Confirmed Last Taken Type No Known Home Medications [No 05/03/19 05/03/19 Unknown History Reported Home Medications] Active Medications: Generic Name Dose Route Start Last Admin Trade Name Freq PRN Reason Stop Dose Admin Acetaminophen 650 mg 05/01/19 22:46 05/06/19 13:00 Tylenol PO 650 mg Q4H PRN Administration Pain MILD(1-3)/Fever >100.5/FREEMAN Acetaminophen 650 mg 05/07/19 12:00 05/09/19 00:27 Tylenol PO Not Given Q6HR VICKEY Dextrose 50 gm 05/01/19 20:24 D50w (25gm) Vial IV Q30MIN PRN Hypoglycemia Protocol Enoxaparin Sodium 30 mg 05/05/19 10:00 05/09/19 09:08 Enoxaparin SUB-Q 30 mg QDAY VICKEY Administration Famotidine 20 mg 05/05/19 10:00 05/09/19 09:08 Pepcid PO 20 mg DAILY VICKEY Administration Fludrocortisone Acetate 0.1 mg 05/05/19 11:00 05/09/19 09:08 Florinef PO 0.1 mg QDAY VICKEY Administration Hydrophilic Ointment 1 applic 05/01/19 21:14 Vaseline Lip Therapy TP Q2HR PRN Dry Lips Fentanyl Citrate 2,000 mcg in 100 mls @ 10.195 mls/hr 05/01/19 22:00 05/09/19 09:56 Fentanyl Drip Premix IV 4 mcg/kg/hr TITR VICKEY 40.78 mls/hr Administration Protocol 1 MCG/KG/HR Propofol 1,000 mg in 100 mls @ 7.011 mls/hr 05/03/19 04:00 05/05/19 07:36 Diprivan 10 Mg/Ml IV 0 mcg/kg/min TITR VICKEY 0 mls/hr Titration Protocol 5 MCG/KG/MIN Norepinephrine 4 mg in 250 mls @ 7.5 mls/hr 05/03/19 18:00 Levophed Drip 4 Mg/Ns 250 Ml IV TITR VICKEY Protocol 2 MCG/MIN Dextrose/Sodium Chloride 1,000 mls @ 125 mls/hr 05/05/19 12:00 05/09/19 08:31 D5/0.45ns IV 125 mls/hr DIRECT VICKEY Administration Sodium Chloride 500 mls @ 10 mls/hr 05/06/19 15:00 Nacl 0.9% 500 Ml IV DIRECT VICKEY Ceftriaxone Sodium 2 gm in 100 mls @ 200 mls/hr 05/07/19 22:00 05/09/19 09:09 Rocephin/Ns 2 Gm/100 Ml IV 200 mls/hr Q12HR VICKEY Administration Protocol Lorazepam 2 mg 05/06/19 06:22 05/09/19 10:52 Ativan IV 2 mg Q4H PRN Administration Seizures Metoprolol Tartrate 25 mg 05/02/19 04:00 05/09/19 09:07 Metoprolol PO 25 mg BID VICKEY Administration Multi-Ingred Cream/Lotion/Oil/Oint 1 applic 05/01/19 21:14 Artificial Tears Ophth Oint OU Q4HR PRN Dry Eye(s) Ondansetron HCl 4 mg 05/01/19 22:46 Zofran IV Q8H PRN Nausea And Vomiting Sodium Chloride 10 ml 05/02/19 10:00 05/09/19 09:08 Sodium Chloride Flush Syringe 10 Ml IV 10 ml BID VICKEY Administration Sodium Chloride 10 ml 05/01/19 22:46 05/05/19 02:28 Sodium Chloride Flush Syringe 10 Ml IV 10 ml PRN PRN Administration LINE FLUSH
--- NOTE | 2019-05-09 15:33 | Progress Note ---
Assessment and Plan Assessment and plan: 34-year-old man who is morbidly obese with unknown medical problem was brought to the emergency room with complaints of shortness of breath and difficulty sleeping. History is per the chart, nurse reported that his saturation dropped to 28%, heart rate in the 50s, she checked on them, he was cyanotic and was subsequently intubated and recieved 2 rounds of epinephrine. Cardiac arrest. * Discussed with pulmonary, Some improvement in saturation to the 90% range. Remains on 70% FIO2 and 20 PEEP * Diuresis held due to renal function worsening, appears to be improving today * still with fever * per ID empiric meningitis coverage with Ceftriaxone, Vancomycin * Flagyl discontinued * Acyclovir also added, renally adjusted * When feasible LP and possible MRI brain (though may be limited due to patient's weight) Blood cultures: no growth thus far Sputum culture: no growth thus far urine culture: no growth s/p Cardiac arrest Resuscitated cardiology consulted, following Acute hypoxic and hypercapenic respiratory failure on vent >96hrs Status post intubation, continue sedation, consulted pulmonary And input noted "continue to wean FiO2 for sats >88% and or PaO2 of greater than 55. Do not wean PEEP until FiO2 is a 50% or lower. Permissive hypercapnea is ok as long as pH is not lower than 7.2" Oxygen demand increased due to hypoxia, Pulmoanry adjusting vent Obesity Hypoventilation syndrome Sepsis- not present on admission -On abx, ID following. LP when able Acylovir stopped ?seizure activity -Meninigitis prophy -Neurology consult -EEG Acute CHF, new onset, Diurese with IV lasix held, monitor I/O, daily weights Cardiology following. Added beta-jenny, no TIM inhibitor secondary to renal insufficiency Hypertension malignant Start antihypertensive, monitor blood pressure IV hydralazine as needed for further control Acute kidney injury due to ATN begning to trend downwards Nephrology following and input noted. Berkowitz for strict I/Os Hyperkalemia-Resolved Passive congestive hepatic syndrome -LFT elevated but trending down -Noted Gallbladder sludge DVT prophylaxis with Lovenox Morbid obesity Full code status. Prognosis guarded No family present The high probability of a clinically significant, sudden or life threatening deterioration of the [cardiovascular, Pulmonary, renal, neurological] system(s) required my full and direct attention, intervention and personal management. The aggregate critical care time was [35] minutes. This time is in addition to time spent performing reported procedures but includes the following: [x] Data Review and interpretation [x] Patient assessment and monitoring of vital signs [x] Documentation [x] Medication orders and management History Interval history: Patient seen and examined, remains on full ventilatory support, back on 100% saturation. Per respiratory staff, patient has a leak around ETT. Pulmonary managing Hospitalist Physical - Physical exam Narrative exam: Gen: Not in acute distress, intubated, on fentanyl, no evidence of vent-patient dyschronny on vent, morbidly obese HEENT: Normocephalic, atraumatic, short and large neck circumference Neck: supple, no JVD Heart: S1 and S2 reg, no murmurs, rubs or gallop Lungs: Clear to auscultation bilaterally, no wheeze Abd: soft, NT, non distended, normal bowel sounds Ext:No edema, no cyanosis Neuro: Intubated, sedated - Constitutional Vitals: Temp Pulse Resp BP Pulse Ox 97.8 F 85 16 130/61 98 05/09/19 12:00 05/09/19 14:30 05/09/19 14:30 05/09/19 14:30 05/09/19 14:30 General appearance: Present: no acute distress Results - Labs CBC & Chem 7: 05/09/19 04:50 05/09/19 07:24 Labs: Laboratory Last Values WBC 7.9 K/mm3 (4.5-11.0) 05/09/19 04:50 RBC 3.07 M/mm3 (3.65-5.03) L 05/09/19 04:50 Hgb 8.5 gm/dl (11.8-15.2) L D 05/09/19 04:50 Hct 29.3 % (35.5-45.6) L D 05/09/19 04:50 MCV 96 fl (84-94) H 05/09/19 04:50 MCH 28 pg (28-32) 05/09/19 04:50 MCHC 29 % (32-34) L 05/09/19 04:50 RDW 18.1 % (13.2-15.2) H 05/09/19 04:50 Plt Count 154 K/mm3 (140-440) 05/09/19 04:50 Lymph % (Auto) 7.9 % (13.4-35.0) L 05/05/19 05:00 Davis % (Auto) 10.2 % (0.0-7.3) H 05/05/19 05:00 Eos % (Auto) 0.6 % (0.0-4.3) 05/05/19 05:00 Baso % (Auto) 0.5 % (0.0-1.8) 05/05/19 05:00 Lymph # 1.0 K/mm3 (1.2-5.4) L 05/05/19 05:00 Davis # 1.2 K/mm3 (0.0-0.8) H 05/05/19 05:00 Eos # 0.1 K/mm3 (0.0-0.4) 05/05/19 05:00 Baso # 0.1 K/mm3 (0.0-0.1) 05/05/19 05:00 Seg Neutrophils % 80.8 % (40.0-70.0) H 05/05/19 05:00 Seg Neutrophils # 9.7 K/mm3 (1.8-7.7) H 05/05/19 05:00 PT 15.4 Sec. (12.2-14.9) H 05/01/19 Unknown INR 1.23 (0.87-1.13) H 05/01/19 Unknown APTT 22.7 Sec. (24.2-36.6) L 05/01/19 Unknown POC ABG pH 7.316 (7.35-7.45) L 05/09/19 04:53 ABG pH 7.403 pH Units (7.350-7.450) 05/02/19 16:05 POC ABG pCO2 66.0 (35-45) H 05/09/19 04:53 ABG pCO2 52.3 mm Hg 05/02/19 16:05 POC ABG pO2 69 (80-105) L 05/09/19 04:53 ABG pO2 66.6 mm Hg (80.0-90.0) L 05/02/19 16:05 POC ABG HCO3 33.7 (22-26 mml/L) 05/09/19 04:53 ABG HCO3 31.9 mmol/L (20.0-26.0) H 05/02/19 16:05 POC ABG Total CO2 36 (23-27mmol/L) 05/09/19 04:53 POC ABG O2 Sat 91 05/09/19 04:53 ABG O2 Saturation 92.5 % (95.0-99.0) L 05/02/19 16:05 ABG O2 Content 16.9 (0.0-44) 05/02/19 16:05 POC ABG Base Excess 8 ((-2) - (+3)mmol/L) 05/09/19 04:53 ABG Base Excess 5.8 mmol/L (-2.0-3.0) H 05/02/19 16:05 ABG Hemoglobin 13.3 gm/dl (14.0-18.0) L 05/02/19 16:05 ABG Carboxyhemoglobin 1.6 % (0.0-5.0) 05/02/19 16:05 ABG Methemoglobin 0.6 % (0.0-1.5) 05/02/19 16:05 Oxyhemoglobin 90.6 % (95.0-99.0) L 05/02/19 16:05 FiO2 100 % 05/09/19 04:53 Sodium 145 mmol/L (137-145) 05/09/19 07:24 Potassium 4.2 mmol/L (3.6-5.0) 05/09/19 07:24 Chloride 106.3 mmol/L (98-107) 05/09/19 07:24 Carbon Dioxide 25 mmol/L (22-30) 05/09/19 07:24 Anion Gap 18 mmol/L 05/09/19 07:24 BUN 73 mg/dL (9-20) H 05/09/19 07:24 Creatinine 2.4 mg/dL (0.8-1.5) H 05/09/19 07:24 Estimated GFR 38 ml/min 05/09/19 07:24 BUN/Creatinine Ratio 30 % 05/09/19 07:24 Glucose 153 mg/dL (75-100) H 05/09/19 07:24 POC Glucose 148 (70-105) H 05/09/19 12:10 Osmolality 327 Mosm/kg 05/07/19 13:45 Uric Acid 18.0 mg/dL (3.5-7.6) H 05/07/19 13:45 Calcium 8.2 mg/dL (8.4-10.2) L 05/09/19 07:24 Phosphorus 4.90 mg/dL (2.5-4.5) H 05/02/19 00:06 Magnesium 2.30 mg/dL (1.7-2.3) 05/02/19 00:06 Total Bilirubin 0.20 mg/dL (0.1-1.2) 05/09/19 07:24 AST 45 units/L (5-40) H 05/09/19 07:24 ALT 37 units/L (7-56) 05/09/19 07:24 Alkaline Phosphatase 44 units/L (35-129) 05/09/19 07:24 Total Creatine Kinase 131 units/L (55-170) 05/02/19 04:41 CK-MB (CK-2) 5.2 ng/mL (0.0-4.0) H 05/02/19 04:41 CK-MB (CK-2) Rel Index 3.9 (0-4) 05/02/19 04:41 Troponin T 0.067 ng/mL (0.00-0.029) H D 05/02/19 04:41 NT-Pro-B Natriuret Pep 6831 pg/mL (0-450) H 05/01/19 Unknown Total Protein 6.0 g/dL (6.3-8.2) L 05/09/19 07:24 Albumin 1.9 g/dL (3.9-5) L 05/09/19 07:24 Albumin/Globulin Ratio 0.5 % 05/09/19 07:24 Triglycerides 182 mg/dL (2-149) H 05/02/19 00:06 Cholesterol 173 mg/dL (50-199) 05/02/19 00:06 LDL Cholesterol Direct 126 mg/dL (50-130) 05/02/19 00:06 HDL Cholesterol 18 mg/dL (40-59) L 05/02/19 00:06 Cholesterol/HDL Ratio 9.61 % 05/02/19 00:06 Procalcitonin 0.54 ng/mL (<0.15) 05/03/19 11:52 Urine Color Yellow (Yellow) 05/03/19 10:55 Urine Turbidity Turbid (Clear) 05/03/19 10:55 Urine pH 5.0 (5.0-7.0) 05/03/19 10:55 Ur Specific [place] 1.014 (1.003-1.030) 05/03/19 10:55 Urine Protein <15 mg/dl mg/dL (Negative) 05/03/19 10:55 Urine Glucose (UA) Neg mg/dL (Negative) 05/03/19 10:55 Urine Ketones Neg mg/dL (Negative) 05/03/19 10:55 Urine Blood Lg (Negative) 05/03/19 10:55 Urine Nitrite Neg (Negative) 05/03/19 10:55 Urine Bilirubin Neg (Negative) 05/03/19 10:55 Urine Urobilinogen < 2.0 mg/dL (<2.0) 05/03/19 10:55 Ur Leukocyte Esterase Mod (Negative) 05/03/19 10:55 Urine WBC (Auto) 33.0 /HPF (0.0-6.0) H 05/03/19 10:55 Urine RBC (Auto) 8.0 /HPF (0.0-6.0) 05/03/19 10:55 Urine Bacteria (Auto) 1+ /HPF (Negative) 05/03/19 10:55 Uric Acid Crystals 3+ 05/03/19 10:55 Urine Mucus Few /HPF 05/03/19 10:55 Urine Creatinine 292.8 mg/dL (0.1-20.0) H 05/07/19 22:40 Urine Sodium 11 mmol/L 05/07/19 22:40 Urine Total Protein 269 mg/dL (5-11.8) H 05/07/19 22:40 Random Vancomycin 10.2 ug/mL (0-40.0) 05/08/19 05:50 Hepatitis A IgM Ab Non-reactive (NonReactive) 05/07/19 13:45 Hep Bs Antigen Non-reactive (Negative) 05/07/19 13:45 Hep B Core IgM Ab Non-reactive (NonReactive) 05/07/19 13:45 Hepatitis C Antibody Non-reactive (NonReactive) 05/07/19 13:45 Active Medications - Current Medications Current Medications: Generic Name Dose Route Start Last Admin Trade Name Freq PRN Reason Stop Dose Admin Acetaminophen 650 mg 05/01/19 22:46 05/06/19 13:00 Tylenol PO 650 mg Q4H PRN Administration Pain MILD(1-3)/Fever >100.5/FREEMAN Acetaminophen 650 mg 05/07/19 12:00 05/09/19 00:27 Tylenol PO Not Given Q6HR VICKEY Dextrose 50 gm 05/01/19 20:24 D50w (25gm) Vial IV Q30MIN PRN Hypoglycemia Protocol Enoxaparin Sodium 30 mg 05/05/19 10:00 05/09/19 09:08 Enoxaparin SUB-Q 30 mg QDAY VICKEY Administration Famotidine 20 mg 05/05/19 10:00 05/09/19 09:08 Pepcid PO 20 mg DAILY VICKEY Administration Fludrocortisone Acetate 0.1 mg 05/05/19 11:00 05/09/19 09:08 Florinef PO 0.1 mg QDAY VICKEY Administration Hydrophilic Ointment 1 applic 05/01/19 21:14 Vaseline Lip Therapy TP Q2HR PRN Dry Lips Fentanyl Citrate 2,000 mcg in 100 mls @ 10.195 mls/hr 05/01/19 22:00 05/09/19 14:11 Fentanyl Drip Premix IV 4 mcg/kg/hr TITR VICKEY 40.78 mls/hr Administration Protocol 1 MCG/KG/HR Propofol 1,000 mg in 100 mls @ 7.011 mls/hr 05/03/19 04:00 05/05/19 07:36 Diprivan 10 Mg/Ml IV 0 mcg/kg/min TITR VICKEY 0 mls/hr Titration Protocol 5 MCG/KG/MIN Norepinephrine 4 mg in 250 mls @ 7.5 mls/hr 05/03/19 18:00 Levophed Drip 4 Mg/Ns 250 Ml IV TITR VICKEY Protocol 2 MCG/MIN Dextrose/Sodium Chloride 1,000 mls @ 125 mls/hr 05/05/19 12:00 05/09/19 08:31 D5/0.45ns IV 125 mls/hr DIRECT VICKEY Administration Sodium Chloride 500 mls @ 10 mls/hr 05/06/19 15:00 Nacl 0.9% 500 Ml IV DIRECT VICKEY Ceftriaxone Sodium 2 gm in 100 mls @ 200 mls/hr 05/07/19 22:00 05/09/19 09:09 Rocephin/Ns 2 Gm/100 Ml IV 200 mls/hr Q12HR VICKEY Administration Protocol Lorazepam 2 mg 05/06/19 06:22 05/09/19 10:52 Ativan IV 2 mg Q4H PRN Administration Seizures Metoprolol Tartrate 25 mg 05/02/19 04:00 05/09/19 09:07 Metoprolol PO 25 mg BID VICKEY Administration Multi-Ingred Cream/Lotion/Oil/Oint 1 applic 05/01/19 21:14 Artificial Tears Ophth Oint OU Q4HR PRN Dry Eye(s) Ondansetron HCl 4 mg 05/01/19 22:46 Zofran IV Q8H PRN Nausea And Vomiting Sodium Chloride 10 ml 05/02/19 10:00 05/09/19 09:08 Sodium Chloride Flush Syringe 10 Ml IV 10 ml BID VICKEY Administration Sodium Chloride 10 ml 05/01/19 22:46 05/05/19 02:28 Sodium Chloride Flush Syringe 10 Ml IV 10 ml PRN PRN Administration LINE FLUSH Nutrition/Malnutrition Assess - Dietary Evaluation Nutrition/Malnutrition Findings: Nutrition Notes Start: 05/04/19 12:54 Freq: Status: Active Protocol: Document 05/07/19 09:55 DW (Rec: 05/07/19 09:59 DW [id number]) Co-Sign 05/07/19 09:55 LP Nutrition Notes Initial or Follow up Reassessment Current Diagnosis Acute Kidney Injury,Sepsis, Respiratory Failure Current Diet Nepro 1.8 at 60ml/hr Labs/Tests Na 145 BUN 76 Cr 3.2 Glu 147 Pertinent Medications Levophed Enaxoprine Height 6 ft 4 in Weight 227.5 kg [place] Body Weight (kg) 91.81 BMI 61.0 Weight Status Morbidly Obese Subjective/Other Information FU TF tolerance Noticed Nepro 1.8 running at goal of 50ml/hr Percent of energy/protein needs met: 86%/43% Burn Absent Trauma Absent Current % PO Negligible Minimum of two criteria No physical signs of malnutrition #1 Nutrition Diagnosis Inadequate oral intake Diagnosis Progress(for reassessment Continues documentation) Is patient on ventilator? Yes Is Patient Ambulatory and/or Out of Bed No REE-([place]-confined to bed) 3986.244 Kcal/Kg value to use for calculation 11 Approximate Energy Requirements Using 2503 kcal/Kg Calculation Used for Recommendations Kcal/kg Additional Notes PRO needs: 225 g (up to 2.5 g/ kg 91.81 IBW) Fluid needs: 1 ml/kcal Nutrition Intervention Change Diet Order: Continue TF Nutrition Support: Nepro 1.8 at 50 ml/hr 250 ml flush q4h Kcal 2,160 Protein (gm) 97 Fluid (mL) 872 Goal #1 TF tolerance Goal #2 Meet at least 75% kcal/PRO needs via TF Anticipated Discharge Needs: Unable to determine at this time Follow-Up By: 05/14/19 Additional Comments FU TF tolerance
--- NOTE | 2019-05-09 20:11 | Progress Note ---
Assessment and Plan Imp: 1. Acute respiratory failure, hypoxia 2. A/C respiratory failure, hypercapnea 3. LANDON/OHS/Morbid obesity 4. CARLA 5. Pulm HTN 6. Sepsis -> ? Pneumonia, ? Meningitis 7. Seizures Rec: 1. Wean FiO2 to keep sats 88% or >; once at 50%, start weaning PEEP 2. Sedation same 3. May need trach though poor oxygenation currently precludes 4. Lasix 40mg IV once today since he is back on 100% FiO2 5. ABX per ID; too large for MRI brain and probably LP not possible due to morbid obesity 6. Re: RUL atelectasis, poor candidate for bronch; consider vest therapy but doubt there is a large enough vest to fit him; monitor CXRs -> repeat in AM 7. EEG ordered; add Keppra BID 8. TFs as tolerated, currently on hold due to vomiting earlier; DVT and GI PPx 9. Patient in dire straits and we need accurate I/O's -> place ahn cath as benefits outweigh risks 10. Poor prognosis; patient w/ marginal improvement since admission No family present CCT 31 minutes Subjective Date of service: 05/09/19 Principal diagnosis: HF; acute hypoxemic resp failure, SIRS, CARLA Interval history: Had "seizure activity" where muscles tensed up and he desaturated, improved with Ativan. Now back on 100% FiO2. Sedated. Cannot give hx. Fevers better. Active Medications Acetaminophen (Tylenol) 650 mg PO Q4H PRN PRN Reason: Pain MILD(1-3)/Fever >100.5/FREEMAN Last Admin: 05/06/19 13:00 Dose: 650 mg Documented by: Acetaminophen (Tylenol) 650 mg PO Q6HR [facility] Last Admin: 05/09/19 12:00 Dose: Not Given Documented by: Dextrose (D50w (25gm) Vial) 50 gm IV Q30MIN PRN; Protocol PRN Reason: Hypoglycemia Enoxaparin Sodium (Enoxaparin) 30 mg SUB-Q QDAY [facility] Last Admin: 05/09/19 09:08 Dose: 30 mg Documented by: Famotidine (Pepcid) 20 mg PO DAILY [facility] Last Admin: 05/09/19 09:08 Dose: 20 mg Documented by: Fludrocortisone Acetate (Florinef) 0.1 mg PO QDAY [facility] Last Admin: 05/09/19 09:08 Dose: 0.1 mg Documented by: Furosemide (Lasix) 40 mg IV ONCE ONE Stop: 05/09/19 20:06 Hydrophilic Ointment (Vaseline Lip Therapy) 1 applic TP Q2HR PRN PRN Reason: Dry Lips Fentanyl Citrate (Fentanyl Drip Premix) 2,000 mcg in 100 mls @ 10.195 mls/hr IV TITR VICKEY; Protocol Last Admin: 05/09/19 18:32 Dose: 4 mcg/kg/hr, 40.78 mls/hr Documented by: Propofol (Diprivan 10 Mg/Ml) 1,000 mg in 100 mls @ 7.011 mls/hr IV TITR VICKEY; Protocol Last Titration: 05/05/19 07:36 Dose: 0 mcg/kg/min, 0 mls/hr Documented by: Norepinephrine (Levophed Drip 4 Mg/Ns 250 Ml) 4 mg in 250 mls @ 7.5 mls/hr IV TITR VICKEY; Protocol Dextrose/Sodium Chloride (D5/0.45ns) 1,000 mls @ 125 mls/hr IV DIRECT VICKEY Last Admin: 05/09/19 18:33 Dose: 125 mls/hr Documented by: Sodium Chloride (Nacl 0.9% 500 Ml) 500 mls @ 10 mls/hr IV DIRECT VICKEY Ceftriaxone Sodium (Rocephin/Ns 2 Gm/100 Ml) 2 gm in 100 mls @ 200 mls/hr IV Q12HR VICKEY; Protocol Last Admin: 05/09/19 09:09 Dose: 200 mls/hr Documented by: Levetiracetam 750 mg/ Dextrose 107.5 mls @ 400 mls/hr IV Q12HR [facility] Lorazepam (Ativan) 2 mg IV Q4H PRN PRN Reason: Seizures Last Admin: 05/09/19 16:25 Dose: 2 mg Documented by: Metoprolol Tartrate (Metoprolol) 25 mg PO BID VICKEY Last Admin: 05/09/19 09:07 Dose: 25 mg Documented by: Multi-Ingred Cream/Lotion/Oil/Oint (Artificial Tears Ophth Oint) 1 applic OU Q4HR PRN PRN Reason: Dry Eye(s) Ondansetron HCl (Zofran) 4 mg IV Q8H PRN PRN Reason: Nausea And Vomiting Sodium Chloride (Sodium Chloride Flush Syringe 10 Ml) 10 ml IV BID VICKEY Last Admin: 05/09/19 09:08 Dose: 10 ml Documented by: Sodium Chloride (Sodium Chloride Flush Syringe 10 Ml) 10 ml IV PRN PRN PRN Reason: LINE FLUSH Last Admin: 05/05/19 02:28 Dose: 10 ml Documented by: Objective Vital Signs - 12hr 05/09/19 05/09/19 05/09/19 08:15 08:30 08:45 Temperature Pulse Rate 76 76 76 Pulse Rate [ From Monitor] Respiratory 20 16 24 Rate Blood Pressure 115/63 121/56 119/66 O2 Sat by Pulse 100 98 98 Oximetry 05/09/19 05/09/19 05/09/19 09:00 09:07 09:15 Temperature Pulse Rate 78 79 76 Pulse Rate [ From Monitor] Respiratory 20 21 Rate Blood Pressure 110/56 110/56 125/64 O2 Sat by Pulse 99 98 Oximetry 05/09/19 05/09/19 05/09/19 09:30 09:45 10:00 Temperature Pulse Rate 76 75 74 Pulse Rate [ From Monitor] Respiratory 21 22 13 Rate Blood Pressure 109/59 113/53 119/58 O2 Sat by Pulse 98 98 99 Oximetry 05/09/19 05/09/19 05/09/19 10:15 10:30 10:46 Temperature Pulse Rate 75 89 Pulse Rate [ From Monitor] Respiratory 17 14 Rate Blood Pressure 103/59 103/59 103/56 O2 Sat by Pulse 98 82 L 90 Oximetry 05/09/19 05/09/19 05/09/19 11:00 11:15 11:30 Temperature Pulse Rate 96 H 85 83 Pulse Rate [ From Monitor] Respiratory 19 22 21 Rate Blood Pressure 126/45 120/53 111/38 O2 Sat by Pulse 90 100 94 Oximetry 05/09/19 05/09/19 05/09/19 11:44 11:45 12:00 Temperature 97.8 F Pulse Rate 86 87 89 Pulse Rate [ 85 From Monitor] Respiratory 18 22 Rate Blood Pressure 112/52 112/52 119/42 O2 Sat by Pulse 96 98 100 Oximetry 05/09/19 05/09/19 05/09/19 12:15 12:30 12:46 Temperature Pulse Rate 80 79 91 H Pulse Rate [ From Monitor] Respiratory 22 23 15 Rate Blood Pressure 115/58 119/65 119/65 O2 Sat by Pulse 96 97 79 L Oximetry 05/09/19 05/09/19 05/09/19 13:00 13:15 13:30 Temperature Pulse Rate 101 H 95 H 90 Pulse Rate [ From Monitor] Respiratory 16 15 22 Rate Blood Pressure 129/57 130/50 136/58 O2 Sat by Pulse 85 82 L 93 Oximetry 05/09/19 05/09/19 05/09/19 13:45 14:00 14:16 Temperature Pulse Rate 86 85 86 Pulse Rate [ From Monitor] Respiratory 19 25 H 16 Rate Blood Pressure 147/63 142/61 127/48 O2 Sat by Pulse 99 97 97 Oximetry 05/09/19 05/09/19 05/09/19 14:30 14:45 15:00 Temperature Pulse Rate 85 86 87 Pulse Rate [ From Monitor] Respiratory 16 23 14 Rate Blood Pressure 130/61 133/52 133/52 O2 Sat by Pulse 98 98 99 Oximetry 05/09/19 05/09/19 05/09/19 15:15 15:30 15:45 Temperature Pulse Rate 87 83 83 Pulse Rate [ From Monitor] Respiratory 14 15 18 Rate Blood Pressure 123/46 121/46 124/46 O2 Sat by Pulse 98 98 98 Oximetry 05/09/19 05/09/19 05/09/19 15:50 16:00 16:16 Temperature 98.4 F Pulse Rate 92 H 107 H Pulse Rate [ 85 From Monitor] Respiratory 20 16 Rate Blood Pressure 124/46 112/48 O2 Sat by Pulse 98 70 L Oximetry 05/09/19 05/09/19 05/09/19 16:30 16:45 17:00 Temperature Pulse Rate 106 H 102 H 87 Pulse Rate [ From Monitor] Respiratory 13 14 19 Rate Blood Pressure 112/53 132/59 137/57 O2 Sat by Pulse 81 L 81 L 96 Oximetry 05/09/19 05/09/19 05/09/19 17:16 17:30 17:45 Temperature Pulse Rate 100 H 103 H 92 H Pulse Rate [ From Monitor] Respiratory 18 15 10 L Rate Blood Pressure 137/57 128/53 126/61 O2 Sat by Pulse 85 89 Oximetry 05/09/19 05/09/19 05/09/19 18:00 18:16 18:30 Temperature Pulse Rate 92 H 100 H 105 H Pulse Rate [ From Monitor] Respiratory 14 11 L 15 Rate Blood Pressure 118/64 122/65 122/65 O2 Sat by Pulse 93 95 83 L Oximetry 05/09/19 05/09/19 05/09/19 18:45 19:00 19:15 Temperature Pulse Rate 98 H 88 92 H Pulse Rate [ From Monitor] Respiratory 12 14 11 L Rate Blood Pressure 117/49 125/57 120/53 O2 Sat by Pulse 87 99 91 Oximetry 05/09/19 05/09/19 19:22 19:30 Temperature Pulse Rate 87 91 H Pulse Rate [ From Monitor] Respiratory 19 Rate Blood Pressure 120/53 123/59 O2 Sat by Pulse 87 95 Oximetry Constitutional: other (morbidly obese male, sedated on vent) Eyes: non-icteric Neck: other (extremely large in circumference) Effort: normal Ascultation: Bilateral: diminished breath sounds (secondary to body habitus) Cardiovascular: regular rate and rhythm (no mrg) Gastrointestinal: normoactive bowel sounds, other (obese) Integumentary: other (swelling of L hand due to blood pressure cuff and restraints, with non-infected appearing blister on thumb) Extremities: other (1+ generalized edema) Neurologic: unable to assess Psychiatric: other (unable to assess) CBC and BMP: 05/09/19 04:50 05/09/19 07:24 ABG, PT/INR, D-dimer: ABG POC ABG pH 7.316 (7.35-7.45) L 05/09/19 04:53 ABG pH 7.403 pH Units (7.350-7.450) 05/02/19 16:05 POC ABG pCO2 66.0 (35-45) H 05/09/19 04:53 ABG pCO2 52.3 mm Hg 05/02/19 16:05 POC ABG pO2 69 (80-105) L 05/09/19 04:53 ABG pO2 66.6 mm Hg (80.0-90.0) L 05/02/19 16:05 POC ABG HCO3 33.7 (22-26 mml/L) 05/09/19 04:53 POC ABG Total CO2 36 (23-27mmol/L) 05/09/19 04:53 POC ABG O2 Sat 91 05/09/19 04:53 ABG O2 Saturation 92.5 % (95.0-99.0) L 05/02/19 16:05 PT/INR, D-dimer PT 15.4 Sec. (12.2-14.9) H 05/01/19 Unknown INR 1.23 (0.87-1.13) H 05/01/19 Unknown Abnormal lab findings: Abnormal Labs 05/01/19 05/01/19 05/01/19 17:50 19:26 22:36 WBC RBC Hgb Hct MCV MCH MCHC RDW Lymph % (Auto) Sully % (Auto) Lymph # Sully # Seg Neutrophils % Seg Neutrophils # PT INR APTT POC ABG pH 7.272 L 7.331 L POC ABG pCO2 52.8 H POC ABG pO2 ABG pO2 ABG HCO3 ABG O2 Saturation ABG Base Excess ABG Hemoglobin Oxyhemoglobin Sodium 136 L Potassium 6.5 H* Chloride 97.2 L Carbon Dioxide BUN 60 H Creatinine Glucose 113 H POC Glucose Uric Acid Calcium Phosphorus Magnesium 2.40 H AST 139 H ALT 154 H Total Creatine Kinase CK-MB (CK-2) Troponin T NT-Pro-B Natriuret Pep Total Protein Albumin 3.8 L Triglycerides HDL Cholesterol Urine WBC (Auto) Urine Creatinine Urine Total Protein 05/01/19 05/01/19 05/01/19 Unknown Unknown Unknown WBC 16.1 H RBC Hgb Hct MCV MCH MCHC RDW 17.2 H Lymph % (Auto) Sully % (Auto) 9.6 H Lymph # Sully # 1.5 H Seg Neutrophils % 73.0 H Seg Neutrophils # 11.7 H PT 15.4 H INR 1.23 H APTT 22.7 L POC ABG pH POC ABG pCO2 POC ABG pO2 ABG pO2 ABG HCO3 ABG O2 Saturation ABG Base Excess ABG Hemoglobin Oxyhemoglobin Sodium Potassium Chloride Carbon Dioxide BUN Creatinine Glucose POC Glucose Uric Acid Calcium Phosphorus Magnesium AST ALT Total Creatine Kinase CK-MB (CK-2) Troponin T NT-Pro-B Natriuret Pep 6831 H Total Protein Albumin Triglycerides HDL Cholesterol Urine WBC (Auto) Urine Creatinine Urine Total Protein 05/01/19 05/02/19 05/02/19 Unknown 00:06 00:06 WBC RBC Hgb Hct MCV MCH MCHC RDW Lymph % (Auto) Sully % (Auto) Lymph # Sully # Seg Neutrophils % Seg Neutrophils # PT INR APTT POC ABG pH POC ABG pCO2 POC ABG pO2 ABG pO2 ABG HCO3 ABG O2 Saturation ABG Base Excess ABG Hemoglobin Oxyhemoglobin Sodium Potassium Chloride Carbon Dioxide BUN Creatinine Glucose POC Glucose Uric Acid Calcium Phosphorus 4.90 H Magnesium AST ALT Total Creatine Kinase 226 H CK-MB (CK-2) 5.7 H Troponin T 0.044 H NT-Pro-B Natriuret Pep Total Protein Albumin Triglycerides 182 H HDL Cholesterol 18 L Urine WBC (Auto) Urine Creatinine Urine Total Protein 05/02/19 05/02/19 05/02/19 02:08 04:40 04:41 WBC 17.6 H RBC Hgb Hct MCV MCH 27 L MCHC RDW 17.4 H Lymph % (Auto) 10.2 L Sully % (Auto) 11.0 H Lymph # Sully # 1.9 H Seg Neutrophils % 78.0 H Seg Neutrophils # 13.8 H PT INR APTT POC ABG pH POC ABG pCO2 46.8 H POC ABG pO2 63 L ABG pO2 ABG HCO3 ABG O2 Saturation ABG Base Excess ABG Hemoglobin Oxyhemoglobin Sodium Potassium Chloride 96.3 L Carbon Dioxide BUN 63 H Creatinine 1.7 H Glucose POC Glucose Uric Acid Calcium Phosphorus Magnesium AST ALT Total Creatine Kinase CK-MB (CK-2) Troponin T NT-Pro-B Natriuret Pep Total Protein Albumin Triglycerides HDL Cholesterol Urine WBC (Auto) Urine Creatinine Urine Total Protein 05/02/19 05/02/19 05/02/19 04:41 04:41 16:05 WBC RBC Hgb Hct MCV MCH MCHC RDW Lymph % (Auto) Sully % (Auto) Lymph # S[place] # Seg Neutrophils % Seg Neutrophils # PT INR APTT POC ABG pH POC ABG pCO2 POC ABG pO2 ABG pO2 66.6 L ABG HCO3 31.9 H ABG O2 Saturation 92.5 L ABG Base Excess 5.8 H ABG Hemoglobin 13.3 L Oxyhemoglobin 90.6 L Sodium Potassium Chloride 97.2 L Carbon Dioxide BUN 61 H Creatinine 1.8 H Glucose POC Glucose Uric Acid Calcium Phosphorus Magnesium AST ALT Total Creatine Kinase CK-MB (CK-2) 5.2 H Troponin T 0.067 H D NT-Pro-B Natriuret Pep Total Protein Albumin Triglycerides HDL Cholesterol Urine WBC (Auto) Urine Creatinine Urine Total Protein 05/02/19 05/03/19 05/03/19 20:39 04:35 05:05 WBC 11.8 H RBC Hgb Hct MCV MCH 27 L MCHC 31 L RDW 17.2 H Lymph % (Auto) Sully % (Auto) Lymph # Sully # Seg Neutrophils % Seg Neutrophils # PT INR APTT POC ABG pH POC ABG pCO2 53.6 H 54.0 H POC ABG pO2 55 L 63 L ABG pO2 ABG HCO3 ABG O2 Saturation ABG Base Excess ABG Hemoglobin Oxyhemoglobin Sodium Potassium Chloride Carbon Dioxide BUN Creatinine Glucose POC Glucose Uric Acid Calcium Phosphorus Magnesium AST ALT Total Creatine Kinase CK-MB (CK-2) Troponin T NT-Pro-B Natriuret Pep Total Protein Albumin Triglycerides HDL Cholesterol Urine WBC (Auto) Urine Creatinine Urine Total Protein 05/03/19 05/03/19 05/03/19 05:05 10:55 16:48 WBC RBC Hgb Hct MCV MCH MCHC RDW Lymph % (Auto) Sully % (Auto) Lymph # S[place] # Seg Neutrophils % Seg Neutrophils # PT INR APTT POC ABG pH 7.604 H POC ABG pCO2 POC ABG pO2 58 L ABG pO2 ABG HCO3 ABG O2 Saturation ABG Base Excess ABG Hemoglobin Oxyhemoglobin Sodium Potassium Chloride Carbon Dioxide BUN 52 H Creatinine 1.9 H Glucose 103 H POC Glucose Uric Acid Calcium Phosphorus Magnesium AST ALT Total Creatine Kinase CK-MB (CK-2) Troponin T NT-Pro-B Natriuret Pep Total Protein Albumin Triglycerides HDL Cholesterol Urine WBC (Auto) 33.0 H Urine Creatinine Urine Total Protein 05/04/19 05/04/19 05/04/19 04:49 06:50 06:50 WBC 16.0 H RBC Hgb Hct MCV MCH 27 L MCHC 31 L RDW 17.8 H Lymph % (Auto) Sully % (Auto) Lymph # S[place] # Seg Neutrophils % Seg Neutrophils # PT INR APTT POC ABG pH 7.273 L POC ABG pCO2 POC ABG pO2 ABG pO2 ABG HCO3 ABG O2 Saturation ABG Base Excess ABG Hemoglobin Oxyhemoglobin Sodium 148 H Potassium 5.5 H Chloride Carbon Dioxide BUN 53 H Creatinine 3.3 H D Glucose 106 H POC Glucose Uric Acid Calcium 8.3 L Phosphorus Magnesium AST ALT Total Creatine Kinase CK-MB (CK-2) Troponin T NT-Pro-B Natriuret Pep Total Protein Albumin Triglycerides HDL Cholesterol Urine WBC (Auto) Urine Creatinine Urine Total Protein 05/05/19 05/05/19 05/05/19 00:05 04:30 05:00 WBC RBC Hgb Hct MCV MCH MCHC RDW Lymph % (Auto) Sully % (Auto) Lymph # S[place] # Seg Neutrophils % Seg Neutrophils # PT INR APTT POC ABG pH 7.225 L POC ABG pCO2 > 70 H POC ABG pO2 ABG pO2 ABG HCO3 ABG O2 Saturation ABG Base Excess ABG Hemoglobin Oxyhemoglobin Sodium 151 H Potassium 5.1 H Chloride Carbon Dioxide BUN 64 H Creatinine 3.5 H Glucose 117 H POC Glucose 141 H Uric Acid Calcium 7.5 L Phosphorus Magnesium AST 93 H ALT 65 H Total Creatine Kinase CK-MB (CK-2) Troponin T NT-Pro-B Natriuret Pep Total Protein Albumin 2.9 L Triglycerides HDL Cholesterol Urine WBC (Auto) Urine Creatinine Urine Total Protein 05/05/19 05/05/19 05/05/19 05:00 12:02 17:46 WBC 12.0 H RBC Hgb 11.3 L Hct MCV MCH 27 L MCHC 30 L RDW 18.4 H Lymph % (Auto) 7.9 L Sully % (Auto) 10.2 H Lymph # 1.0 L Sully # 1.2 H Seg Neutrophils % 80.8 H Seg Neutrophils # 9.7 H PT INR APTT POC ABG pH POC ABG pCO2 POC ABG pO2 ABG pO2 ABG HCO3 ABG O2 Saturation ABG Base Excess ABG Hemoglobin Oxyhemoglobin Sodium Potassium Chloride Carbon Dioxide BUN Creatinine Glucose POC Glucose 125 H 112 H Uric Acid Calcium Phosphorus Magnesium AST ALT Total Creatine Kinase CK-MB (CK-2) Troponin T NT-Pro-B Natriuret Pep Total Protein Albumin Triglycerides HDL Cholesterol Urine WBC (Auto) Urine Creatinine Urine Total Protein 05/05/19 05/06/19 05/06/19 23:42 03:58 04:45 WBC 11.4 H RBC Hgb 10.7 L Hct 34.2 L MCV MCH 27 L MCHC 31 L RDW 16.9 H Lymph % (Auto) S[place] % (Auto) Lymph # S[place] # Seg Neutrophils % Seg Neutrophils # PT INR APTT POC ABG pH POC ABG pCO2 62.4 H POC ABG pO2 111 H ABG pO2 ABG HCO3 ABG O2 Saturation ABG Base Excess ABG Hemoglobin Oxyhemoglobin Sodium Potassium Chloride Carbon Dioxide BUN Creatinine Glucose POC Glucose 128 H Uric Acid Calcium Phosphorus Magnesium AST ALT Total Creatine Kinase CK-MB (CK-2) Troponin T NT-Pro-B Natriuret Pep Total Protein Albumin Triglycerides HDL Cholesterol Urine WBC (Auto) Urine Creatinine Urine Total Protein 05/06/19 05/06/19 05/06/19 04:45 05:33 12:30 WBC RBC Hgb Hct MCV MCH MCHC RDW Lymph % (Auto) Sully % (Auto) Lymph # S[place] # Seg Neutrophils % Seg Neutrophils # PT INR APTT POC ABG pH POC ABG pCO2 POC ABG pO2 ABG pO2 ABG HCO3 ABG O2 Saturation ABG Base Excess ABG Hemoglobin Oxyhemoglobin Sodium 149 H Potassium Chloride Carbon Dioxide 31 H BUN 67 H Creatinine 3.2 H Glucose 125 H POC Glucose 117 H 116 H Uric Acid Calcium 7.5 L Phosphorus Magnesium AST ALT Total Creatine Kinase CK-MB (CK-2) Troponin T NT-Pro-B Natriuret Pep Total Protein Albumin Triglycerides HDL Cholesterol Urine WBC (Auto) Urine Creatinine Urine Total Protein 05/06/19 05/06/19 05/07/19 18:34 23:16 05:22 WBC RBC Hgb Hct MCV MCH MCHC RDW Lymph % (Auto) S[place] % (Auto) Lymph # [place] # Seg Neutrophils % Seg Neutrophils # PT INR APTT POC ABG pH POC ABG pCO2 POC ABG pO2 ABG pO2 ABG HCO3 ABG O2 Saturation ABG Base Excess ABG Hemoglobin Oxyhemoglobin Sodium Potassium Chloride Carbon Dioxide BUN Creatinine Glucose POC Glucose 128 H 143 H 166 H Uric Acid Calcium Phosphorus Magnesium AST ALT Total Creatine Kinase CK-MB (CK-2) Troponin T NT-Pro-B Natriuret Pep Total Protein Albumin Triglycerides HDL Cholesterol Urine WBC (Auto) Urine Creatinine Urine Total Protein 05/07/19 05/07/19 05/07/19 06:33 07:03 09:35 WBC RBC Hgb Hct MCV MCH MCHC RDW Lymph % (Auto) S[place] % (Auto) Lymph # S[place] # Seg Neutrophils % Seg Neutrophils # PT INR APTT POC ABG pH 7.263 L 7.288 L POC ABG pCO2 POC ABG pO2 51 L 56 L ABG pO2 ABG HCO3 ABG O2 Saturation ABG Base Excess ABG Hemoglobin Oxyhemoglobin Sodium Potassium Chloride Carbon Dioxide BUN 76 H Creatinine 3.2 H Glucose 147 H POC Glucose Uric Acid Calcium 7.9 L Phosphorus Magnesium AST ALT Total Creatine Kinase CK-MB (CK-2) Troponin T NT-Pro-B Natriuret Pep Total Protein Albumin Triglycerides HDL Cholesterol Urine WBC (Auto) Urine Creatinine Urine Total Protein 05/07/19 05/07/19 05/07/19 09:35 12:17 13:45 WBC 13.4 H RBC Hgb 11.6 L Hct MCV MCH 27 L MCHC 31 L RDW 17.5 H Lymph % (Auto) [place] % (Auto) Lymph # [place] # Seg Neutrophils % Seg Neutrophils # PT INR APTT POC ABG pH POC ABG pCO2 POC ABG pO2 ABG pO2 ABG HCO3 ABG O2 Saturation ABG Base Excess ABG Hemoglobin Oxyhemoglobin Sodium Potassium Chloride Carbon Dioxide BUN Creatinine Glucose POC Glucose 130 H Uric Acid 18.0 H Calcium Phosphorus Magnesium AST ALT Total Creatine Kinase CK-MB (CK-2) Troponin T NT-Pro-B Natriuret Pep Total Protein Albumin Triglycerides HDL Cholesterol Urine WBC (Auto) Urine Creatinine Urine Total Protein 05/07/19 05/07/19 05/08/19 17:39 22:40 05:06 WBC RBC Hgb Hct MCV MCH MCHC RDW Lymph % (Auto) Sully % (Auto) Lymph # S[place] # Seg Neutrophils % Seg Neutrophils # PT INR APTT POC ABG pH POC ABG pCO2 POC ABG pO2 ABG pO2 ABG HCO3 ABG O2 Saturation ABG Base Excess ABG Hemoglobin Oxyhemoglobin Sodium Potassium Chloride Carbon Dioxide BUN Creatinine Glucose POC Glucose 116 H 148 H Uric Acid Calcium Phosphorus Magnesium AST ALT Total Creatine Kinase CK-MB (CK-2) Troponin T NT-Pro-B Natriuret Pep Total Protein Albumin Triglycerides HDL Cholesterol Urine WBC (Auto) Urine Creatinine 292.8 H Urine Total Protein 269 H 05/08/19 05/08/19 05/08/19 05:32 11:28 13:48 WBC RBC Hgb Hct MCV MCH MCHC RDW Lymph % (Auto) [place] % (Auto) Lymph # [place] # Seg Neutrophils % Seg Neutrophils # PT INR APTT POC ABG pH POC ABG pCO2 45.4 H POC ABG pO2 64 L ABG pO2 ABG HCO3 ABG O2 Saturation ABG Base Excess ABG Hemoglobin Oxyhemoglobin Sodium Potassium Chloride Carbon Dioxide BUN 73 H Creatinine 2.7 H Glucose 127 H POC Glucose 107 H Uric Acid Calcium 7.6 L Phosphorus Magnesium AST ALT Total Creatine Kinase CK-MB (CK-2) Troponin T NT-Pro-B Natriuret Pep Total Protein Albumin Triglycerides HDL Cholesterol Urine WBC (Auto) Urine Creatinine Urine Total Protein 05/08/19 05/09/19 05/09/19 17:48 04:50 04:53 WBC RBC 3.07 L Hgb 8.5 L D Hct 29.3 L D MCV 96 H MCH MCHC 29 L RDW 18.1 H Lymph % (Auto) [place] % (Auto) Lymph # [place] # Seg Neutrophils % Seg Neutrophils # PT INR APTT POC ABG pH 7.316 L POC ABG pCO2 66.0 H POC ABG pO2 69 L ABG pO2 ABG HCO3 ABG O2 Saturation ABG Base Excess ABG Hemoglobin Oxyhemoglobin Sodium Potassium Chloride Carbon Dioxide BUN Creatinine Glucose POC Glucose 155 H Uric Acid Calcium Phosphorus Magnesium AST ALT Total Creatine Kinase CK-MB (CK-2) Troponin T NT-Pro-B Natriuret Pep Total Protein Albumin Triglycerides HDL Cholesterol Urine WBC (Auto) Urine Creatinine Urine Total Protein 05/09/19 05/09/19 05/09/19 05:46 07:24 12:10 WBC RBC Hgb Hct MCV MCH MCHC RDW Lymph % (Auto) [place] % (Auto) Lymph # [place] # Seg Neutrophils % Seg Neutrophils # PT INR APTT POC ABG pH POC ABG pCO2 POC ABG pO2 ABG pO2 ABG HCO3 ABG O2 Saturation ABG Base Excess ABG Hemoglobin Oxyhemoglobin Sodium Potassium Chloride Carbon Dioxide BUN 73 H Creatinine 2.4 H Glucose 153 H POC Glucose 123 H 148 H Uric Acid Calcium 8.2 L Phosphorus Magnesium AST 45 H ALT Total Creatine Kinase CK-MB (CK-2) Troponin T NT-Pro-B Natriuret Pep Total Protein 6.0 L Albumin 1.9 L Triglycerides HDL Cholesterol Urine WBC (Auto) Urine Creatinine Urine Total Protein 05/09/19 18:23 WBC RBC Hgb Hct MCV MCH MCHC RDW Lymph % (Auto) [place] % (Auto) Lymph # [place] # Seg Neutrophils % Seg Neutrophils # PT INR APTT POC ABG pH POC ABG pCO2 POC ABG pO2 ABG pO2 ABG HCO3 ABG O2 Saturation ABG Base Excess ABG Hemoglobin Oxyhemoglobin Sodium Potassium Chloride Carbon Dioxide BUN Creatinine Glucose POC Glucose 147 H Uric Acid Calcium Phosphorus Magnesium AST ALT Total Creatine Kinase CK-MB (CK-2) Troponin T NT-Pro-B Natriuret Pep Total Protein Albumin Triglycerides HDL Cholesterol Urine WBC (Auto) Urine Creatinine Urine Total Protein Chest x-ray: report reviewed, image reviewed
[2019-05-09] MEDS ORDERED: FUROSEMIDE 40 MG/4 ML INJ IV ONE (21:00)
[2019-05-09] MEDS: levETIRAcetam 750 MG in DEXTROSE 5% IN WATER 100 ML IV SCH (21:34)
[2019-05-10] MEDS: ACETAMINOPHEN 325 MG/10.15 ML ORAL LIQD UNIT DOSE PO SCH ×3 (00:31→07:49)
[2019-05-10] MEDS: LORazepam 2 MG/ML VIAL IV PRN ×5 (00:51→16:17)
[2019-05-10] MEDS: fentaNYL DRIP Premix 2,000 MCG/100 ML BAG IV SCH ×9 (02:02→19:37)
[2019-05-10] MEDS: D5W/0.45% NACL 1,000 ML IV SCH (02:40)
--- NOTE | 2019-05-10 03:01 | XRay Report ---
CHEST 1 VIEW INDICATION / CLINICAL INFORMATION: Acute respiratory failure. COMPARISON: 05/08/2019 FINDINGS: SUPPORT DEVICES: NG tube is in place as well as right-sided PICC line. HEART / MEDIASTINUM: Slightly enlarged but stable. LUNGS / PLEURA: Bilateral lung consolidation is unchanged with relative sparing of the right base. No significant effusions. No pneumothorax. ADDITIONAL FINDINGS: No significant additional findings. IMPRESSION: 1. No significant change Signer Name: Arsenio Banda MD Signed: 05/10/2019 2:56 AM Workstation Name: [email or web address] [email or web address]
[2019-05-10 05:31] LABS: Hematocrit 33.7 % (35.5-45.6); Hemoglobin 10.3 gm/dl (11.8-15.2); Mean Corpuscular HGB Conc 31 % (32-34); Mean Corpuscular Volume 88 fl (84-94); Platelet Count 217 K/mm3 (140-440); Red Blood Count 3.82 M/mm3 (3.65-5.03)
[2019-05-10 06:06] LABS: Albumin 2.5 g/dL (3.9-5); Calcium 8.2 mg/dL (8.4-10.2)
[2019-05-10] MEDS: FLUDROCORTISONE 0.1 MG TAB PO SCH (09:05)
[2019-05-10] MEDS: cefTRIAXone/NS 2 GM/100 ML 2 GM/100 ML BAG IV SCH ×2 (09:05→21:25)
[2019-05-10] MEDS: FAMOTIDINE 20 MG TAB PO SCH (09:05)
[2019-05-10] MEDS: METOPROLOL TARTRATE 25 MG TAB PO SCH ×2 (09:05→21:25)
[2019-05-10] MEDS: ENOXAPARIN 30 MG/0.3 ML INJ SUB-Q SCH (09:05)
--- NOTE | 2019-05-10 09:37 | Progress Note ---
Assessment and Plan Cont present supportive management. Pt for possible trace placement. Will follow on as needed basis. The patient has been seen in conjunction with Dr. Sears who agrees with the assessment and plan of care. - Patient Problems (1) Acute on chronic respiratory failure Current Visit: Yes Status: Acute (2) Acute heart failure with preserved ejection fraction Current Visit: Yes Status: Acute (3) Acute kidney injury Current Visit: Yes Status: Acute (4) Anemia Current Visit: Yes Status: Acute (5) Morbid obesity Current Visit: Yes Status: Chronic (6) UTI (urinary tract infection) Current Visit: Yes Status: Acute (7) Fever Current Visit: Yes Status: Acute (8) Sepsis Current Visit: Yes Status: Suspected (9) Elevated troponin Current Visit: Yes Status: Acute (10) NSVT (nonsustained ventricular tachycardia) Current Visit: Yes Status: Acute (11) LANDON (obstructive sleep apnea) Current Visit: Yes Status: Suspected Subjective Date of service: 05/10/19 Principal diagnosis: HF; acute hypoxemic resp failure, SIRS, CARLA Interval history: pt remains intubated, sedated, agitated. in SR on tele. no family at bedside. Objective Last Vital Signs Temp 98.6 F 05/10/19 08:00 Pulse 84 05/10/19 09:15 Resp 19 05/10/19 09:15 BP 113/39 05/10/19 09:15 Pulse Ox 96 05/10/19 09:15 - Physical Examination General: Other (intubated, sedated) HEENT: Positive: PERRL Neck: Positive: trachea midline Cardiac: Positive: Reg Rate and Rhythm, S1/S2 Lungs: Positive: Decreased Breath Sounds, Oxygen, Ventilated Respirations Neuro: Positive: Other (intubated, sedated) Abdomen: Positive: Unremarkable Skin: Positive: Clear Musculoskeletal: Decreased Range of Motion Extremities: Present: normal - Labs and Meds Cardiac Enzymes 05/10/19 Range/Units 05:00 AST 34 (5-40) units/L CBC 05/10/19 Range/Units 05:00 WBC 8.7 (4.5-11.0) K/mm3 RBC 3.82 (3.65-5.03) M/mm3 Hgb 10.3 L (11.8-15.2) gm/dl Hct 33.7 L (35.5-45.6) % Plt Count 217 (140-440) K/mm3 Comprehensive Metabolic Panel 05/10/19 Range/Units 05:00 Sodium 147 H (137-145) mmol/L Potassium 3.9 (3.6-5.0) mmol/L Chloride 106.0 (98-107) mmol/L Carbon Dioxide 25 (22-30) mmol/L BUN 70 H (9-20) mg/dL Creatinine 2.6 H (0.8-1.5) mg/dL Glucose 155 H (75-100) mg/dL Calcium 8.2 L (8.4-10.2) mg/dL AST 34 (5-40) units/L ALT 35 (7-56) units/L Alkaline Phosphatase 45 (35-129) units/L Total Protein 6.1 L (6.3-8.2) g/dL Albumin 2.5 L (3.9-5) g/dL - Imaging and Cardiology EKG: image reviewed Echo: report reviewed (TDS, EF 55-60%, mild LVH, mild TR, RVSP 40mmHg. )
[2019-05-10] MEDS: levETIRAcetam 750 MG in DEXTROSE 5% IN WATER 100 ML IV SCH ×2 (10:48→22:09)
--- NOTE | 2019-05-10 10:59 | Consultation ---
HISTORY OF PRESENT ILLNESS: This is a 34-year-old black male who I have previously evaluated. Please refer to my prior notes regarding the issues prior to admission. In the interval, the patient has made no substantial recovery. As I mentioned previously, his weight is around 500 pounds. Therefore, he cannot have an MRI or CT. Examination is then limited to a bedside evaluation. I find that he does not respond to pain. He does not respond to voice command. He does not respond to spontaneous stimulation. He does respond with a minimal cough reflex. He has no tracking with eye movements, he has no response to verbal stimulation. He has a very faint positive gag reflex. I see very little in the way of limb movements, but there again he is so massively obese that he may have weakness and difficulty sustaining movement of the limbs with this degree of obesity. He does not open his eyes. His eyes remain closed shut. I do not see any focal seizure activity. There is no meningismus. There are no tremors. There is no focality to his weakness. IMPRESSION: This patient has profound encephalopathic state. I think this is probably initially related to hypoxia, hypercapnia. 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 I do not think he had a preexisting history of epilepsy. Prognosis is not good at all. I have not seen any improvement in the 7 days I followed him. I do not see family members to speak with in terms of continuation of care given his lack of recovery. JOB# [id number] MARCELA/MICHAEL
[2019-05-10] MEDS ORDERED: SODIUM BICARBONATE 325 MG TAB FEEDTUBE PRN (11:23)
[2019-05-10] MEDS ORDERED: LIPASE 10,500/PROTEASE 25,000/AMYLASE 43,750 (UNITS) DR CAP FEEDTUBE PRN (11:23)
[2019-05-10] MEDS ORDERED: SIMPLE SYRUP 15 ML FEEDTUBE PRN ×2 (11:23)
--- NOTE | 2019-05-10 11:27 | Progress Note ---
Assessment and Plan # Acute kidney injury: creatinine remains higher than presumed baseline of 1.9 on 05/03/2019, at 2.6 today. Suspect tubular injury in setting of sepsis, respiratory failure, hypotension. S/p diuresis yesterday - continue supportive measures, appreciate pulm and ID input - avoid nephrotoxins - diuresis prn, will adjust down florinef. Would like to avoid over diuresis due to risk to renal tubules, no indication for diuretic today from renal perspective - previous studies reviewed, will need repeat ultrasound renal, especially if creatinine rises - no indication for renal replacement therapy - follow vanc levels # Hypernatremia - decrease florinef - continue free water flushes with TF # HTN: BP reasonable, will work to wean off florinef # Anemia: hemoglobin improved to 10.3, pRBC transfusion prn # Encephalopathy, seizure disorder, hypoxic respiratory failure, fever: ID and pulm following We'll continue to follow and make recommendation from renal standpoint Subjective Date of service: 05/10/19 Principal diagnosis: HF; acute hypoxemic resp failure, SIRS, CARLA Interval history: No acute events noted. Remains intubated and sedated. Objective - Exam Narrative Exam: General: No acute distress/ intubated and sedated HEENT: ET tube in place Neck: Supple Chest:coarse mechanical breath sounds, PRVC with FiO2 70% Heart: Regular rate and rhythm Abdomen: Soft nontender Extremity: no edema Psych: sedated Derm: No petechial rash - Vital Signs Vital signs: Vital Signs - 12hr 05/09/19 05/09/19 05/10/19 23:30 23:45 00:00 Temperature 98.0 F Pulse Rate 86 83 84 Pulse Rate [ 103 H From Monitor] Respiratory 22 22 17 Rate Blood Pressure 114/47 110/50 117/58 O2 Sat by Pulse 91 87 97 Oximetry 05/10/19 05/10/19 05/10/19 00:11 00:15 00:30 Temperature Pulse Rate 84 78 80 Pulse Rate [ From Monitor] Respiratory 15 15 Rate Blood Pressure 110/50 119/65 131/63 O2 Sat by Pulse 90 98 96 Oximetry 05/10/19 05/10/19 05/10/19 00:46 01:00 01:15 Temperature Pulse Rate 94 H 108 H 96 H Pulse Rate [ From Monitor] Respiratory 16 11 L Rate Blood Pressure 131/63 137/68 129/63 O2 Sat by Pulse 75 L 88 89 Oximetry 05/10/19 05/10/19 05/10/19 01:30 01:45 02:00 Temperature Pulse Rate 100 H 93 H 94 H Pulse Rate [ From Monitor] Respiratory 22 13 13 Rate Blood Pressure 129/63 103/46 77/53 O2 Sat by Pulse 91 97 62 L Oximetry 05/10/19 05/10/19 05/10/19 02:15 02:30 02:45 Temperature Pulse Rate 89 85 91 H Pulse Rate [ From Monitor] Respiratory 22 17 13 Rate Blood Pressure 138/51 132/56 118/47 O2 Sat by Pulse 93 94 96 Oximetry 05/10/19 05/10/19 05/10/19 03:01 03:15 03:24 Temperature Pulse Rate 80 81 80 Pulse Rate [ From Monitor] Respiratory 19 17 Rate Blood Pressure 131/64 136/56 136/56 O2 Sat by Pulse 97 98 98 Oximetry 05/10/19 05/10/19 05/10/19 03:31 03:41 03:45 Temperature 98.8 F Pulse Rate 79 99 H Pulse Rate [ From Monitor] Respiratory 10 L 19 Rate Blood Pressure 149/71 149/71 O2 Sat by Pulse 99 89 Oximetry 05/10/19 05/10/19 05/10/19 04:00 04:15 04:30 Temperature Pulse Rate 106 H 102 H 91 H Pulse Rate [ 113 H From Monitor] Respiratory 40 H 14 21 Rate Blood Pressure 150/59 138/54 133/62 O2 Sat by Pulse 87 93 89 Oximetry 05/10/19 05/10/19 05/10/19 04:45 05:00 05:15 Temperature Pulse Rate 83 84 79 Pulse Rate [ From Monitor] Respiratory 18 15 14 Rate Blood Pressure 126/66 115/62 111/66 O2 Sat by Pulse 95 96 98 Oximetry 05/10/19 05/10/19 05/10/19 05:30 05:45 06:00 Temperature Pulse Rate 79 76 77 Pulse Rate [ From Monitor] Respiratory 20 15 19 Rate Blood Pressure 119/68 118/62 116/62 O2 Sat by Pulse 96 99 98 Oximetry 05/10/1905/10/05/10/19 06:15 06:30 06:45 Temperature Pulse Rate 77 78 78 Pulse Rate [ From Monitor] Respiratory 22 21 14 Rate Blood Pressure 120/63 115/67 125/60 O2 Sat by Pulse 98 98 98 Oximetry 05/10/19 05/10/19 05/10/19 07:00 07:15 07:30 Temperature Pulse Rate 79 105 H 94 H Pulse Rate [ From Monitor] Respiratory 20 28 H 25 H Rate Blood Pressure 126/62 127/62 113/40 O2 Sat by Pulse 97 76 L 60 L Oximetry 05/10/19 05/10/19 05/10/19 07:45 07:58 08:00 Temperature 98.6 F Pulse Rate 102 H 105 H 79 Pulse Rate [ 80 From Monitor] Respiratory 19 28 H Rate Blood Pressure 113/40 127/62 O2 Sat by Pulse 93 76 L 93 Oximetry 05/10/19 05/10/19 05/10/19 08:01 08:15 08:30 Temperature Pulse Rate 78 81 83 Pulse Rate [ From Monitor] Respiratory 17 16 16 Rate Blood Pressure 151/76 151/76 126/55 O2 Sat by Pulse 96 98 95 Oximetry 05/10/19 05/10/19 05/10/19 08:45 09:00 09:05 Temperature Pulse Rate 85 86 84 Pulse Rate [ From Monitor] Respiratory 16 12 Rate Blood Pressure 113/40 113/39 113/39 O2 Sat by Pulse 97 96 Oximetry 05/10/19 05/10/19 05/10/19 09:15 09:30 09:45 Temperature Pulse Rate 84 83 80 Pulse Rate [ From Monitor] Respiratory 19 16 21 Rate Blood Pressure 113/39 115/38 115/38 O2 Sat by Pulse 96 96 96 Oximetry 05/10/19 05/10/19 05/10/19 10:00 10:15 10:30 Temperature Pulse Rate 79 83 83 Pulse Rate [ From Monitor] Respiratory 13 10 L 15 Rate Blood Pressure 117/47 115/38 118/43 O2 Sat by Pulse 95 95 95 Oximetry 05/10/19 10:45 Temperature Pulse Rate 80 Pulse Rate [ From Monitor] Respiratory 13 Rate Blood Pressure 118/43 O2 Sat by Pulse 95 Oximetry - Lab 05/10/19 05:00 05/10/19 05:00 Most recent lab results ABG pH 7.403 pH Units (7.350-7.450) 05/02/19 16:05 ABG pCO2 52.3 mm Hg 05/02/19 16:05 ABG pO2 66.6 mm Hg (80.0-90.0) L 05/02/19 16:05 ABG HCO3 31.9 mmol/L (20.0-26.0) H 05/02/19 16:05 ABG O2 Saturation 92.5 % (95.0-99.0) L 05/02/19 16:05 Calcium 8.2 mg/dL (8.4-10.2) L 05/10/19 05:00 Phosphorus 4.90 mg/dL (2.5-4.5) H 05/02/19 00:06 Magnesium 2.30 mg/dL (1.7-2.3) 05/02/19 00:06 Urine Creatinine 292.8 mg/dL (0.1-20.0) H 05/07/19 22:40 Urine Sodium 11 mmol/L 05/07/19 22:40 Urine Total Protein 269 mg/dL (5-11.8) H 05/07/19 22:40 Medications & Allergies - Medications Allergies/Adverse Reactions: Allergies No Known Allergies Allergy (Verified 05/01/19 20:27) Home Medications: Home Medications Medication Instructions Recorded Confirmed Last Taken Type No Known Home Medications [No 05/03/19 05/03/19 Unknown History Reported Home Medications] Active Medications: Generic Name Dose Route Start Last Admin Trade Name Freq PRN Reason Stop Dose Admin Acetaminophen 650 mg 05/01/19 22:46 05/06/19 13:00 Tylenol PO 650 mg Q4H PRN Administration Pain MILD(1-3)/Fever >100.5/FREEMAN Lipase/Protease/Amylase 1 each 05/10/19 11:23 Pancreaze 10,500 Unit FEEDTUBE PRN PRN For Clogged Feeding Tube Dextrose 50 gm 05/01/19 20:24 D50w (25gm) Vial IV Q30MIN PRN Hypoglycemia Protocol Enoxaparin Sodium 30 mg 05/05/19 10:00 05/10/19 09:05 Enoxaparin SUB-Q 30 mg QDAY VICKEY Administration Famotidine 20 mg 05/05/19 10:00 05/10/19 09:05 Pepcid PO 20 mg DAILY VICKEY Administration Fludrocortisone Acetate 0.1 mg 05/05/19 11:00 05/10/19 09:05 Florinef PO 0.1 mg QDAY VICKEY Administration Hydrophilic Ointment 1 applic 05/01/19 21:14 Vaseline Lip Therapy TP Q2HR PRN Dry Lips Fentanyl Citrate 2,000 mcg in 100 mls @ 10.195 mls/hr 05/01/19 22:00 05/10/19 10:47 Fentanyl Drip Premix IV 4 mcg/kg/hr TITR VICKEY 40.78 mls/hr Administration Protocol 1 MCG/KG/HR Propofol 1,000 mg in 100 mls @ 7.011 mls/hr 05/03/19 04:00 05/05/19 07:36 Diprivan 10 Mg/Ml IV 0 mcg/kg/min TITR VICKEY 0 mls/hr Titration Protocol 5 MCG/KG/MIN Norepinephrine 4 mg in 250 mls @ 7.5 mls/hr 05/03/19 18:00 Levophed Drip 4 Mg/Ns 250 Ml IV TITR VICKEY Protocol 2 MCG/MIN Sodium Chloride 500 mls @ 10 mls/hr 05/06/19 15:00 Nacl 0.9% 500 Ml IV DIRECT VICKEY Ceftriaxone Sodium 2 gm in 100 mls @ 200 mls/hr 05/07/19 22:00 05/10/19 09:05 Rocephin/Ns 2 Gm/100 Ml IV 200 mls/hr Q12HR VICKEY Administration Protocol Levetiracetam 750 mg/ Dextrose 107.5 mls @ 400 mls/hr 05/09/19 22:00 05/10/19 10:48 IV 400 mls/hr Q12HR VICKEY Administration Vancomycin HCl 2,000 mg/ 540 mls @ 250 mls/hr 05/10/19 12:00 Sodium Chloride IV 05/10/19 14:09 ONCE ONE Lorazepam 2 mg 05/06/19 06:22 05/10/19 07:15 Ativan IV 2 mg Q4H PRN Administration Seizures/AGITATION Metoprolol Tartrate 25 mg 05/02/19 04:00 05/10/19 09:05 Metoprolol PO 25 mg BID VICKEY Administration Multi-Ingred Cream/Lotion/Oil/Oint 1 applic 05/01/19 21:14 Artificial Tears Ophth Oint OU Q4HR PRN Dry Eye(s) Ondansetron HCl 4 mg 05/01/19 22:46 Zofran IV Q8H PRN Nausea And Vomiting Simple Syrup 15 ml 05/10/19 11:23 Simple Syrup FEEDTUBE PRN PRN Hypoglycemia Simple Syrup 30 ml 05/10/19 11:23 Simple Syrup FEEDTUBE PRN PRN Hypoglycemia Sodium Bicarbonate 325 mg 05/10/19 11:23 Sodium Bicarbonate FEEDTUBE PRN PRN For Clogged Feeding Tube Sodium Chloride 10 ml 05/02/19 10:00 05/10/19 09:06 Sodium Chloride Flush Syringe 10 Ml IV 10 ml BID VICKEY Administration Sodium Chloride 10 ml 05/01/19 22:46 05/05/19 02:28 Sodium Chloride Flush Syringe 10 Ml IV 10 ml PRN PRN Administration LINE FLUSH
--- NOTE | 2019-05-10 11:32 | Progress Note ---
Assessment and Plan 34 y/o male with acute hypoxic, hypercapnic respiratory failure currently ventilated and sedated, now with persistent fevers and seizure. 1. Neuro: Neuro wrote a note. EEG has not been interpreted. no further seizure like activity seen. 2. Pulm: continue to wean FiO2 for sats >88% and or PaO2 of greater than 55. Do not wean PEEP until FiO2 is a 50% or lower. Permissive hypercapnea is ok as long as pH is not lower than 7.2 3. Renal: Cr improved to less than 3.0, making urine. Hold diuresis. Stop D5 as patient is tolerating tube feeds 4. Fever: stopped. Was on scheduled tylenol, which we will stop today. CCT 31 minutes. Subjective Date of service: 05/10/19 Principal diagnosis: HF; acute hypoxemic resp failure, SIRS, CARLA Interval history: Down to 60%. but still on PEEP 20. Gets very agitated with minimal stimula tion. Objective Vital Signs - 12hr 05/09/19 05/09/19 05/10/19 23:30 23:45 00:00 Temperature 98.0 F Pulse Rate 86 83 84 Pulse Rate [ 103 H From Monitor] Respiratory 22 22 17 Rate Blood Pressure 114/47 110/50 117/58 O2 Sat by Pulse 91 87 97 Oximetry 05/10/19 05/10/19 05/10/19 00:11 00:15 00:30 Temperature Pulse Rate 84 78 80 Pulse Rate [ From Monitor] Respiratory 15 15 Rate Blood Pressure 110/50 119/65 131/63 O2 Sat by Pulse 90 98 96 Oximetry 05/10/19 05/10/19 05/10/19 00:46 01:00 01:15 Temperature Pulse Rate 94 H 108 H 96 H Pulse Rate [ From Monitor] Respiratory 16 11 L Rate Blood Pressure 131/63 137/68 129/63 O2 Sat by Pulse 75 L 88 89 Oximetry 05/10/19 05/10/19 05/10/19 01:30 01:45 02:00 Temperature Pulse Rate 100 H 93 H 94 H Pulse Rate [ From Monitor] Respiratory 22 13 13 Rate Blood Pressure 129/63 103/46 77/53 O2 Sat by Pulse 91 97 62 L Oximetry 05/10/19 05/10/19 05/10/19 02:15 02:30 02:45 Temperature Pulse Rate 89 85 91 H Pulse Rate [ From Monitor] Respiratory 22 17 13 Rate Blood Pressure 138/51 132/56 118/47 O2 Sat by Pulse 93 94 96 Oximetry 05/10/19 05/10/19 05/10/19 03:01 03:15 03:24 Temperature Pulse Rate 80 81 80 Pulse Rate [ From Monitor] Respiratory 19 17 Rate Blood Pressure 131/64 136/56 136/56 O2 Sat by Pulse 97 98 98 Oximetry 05/10/19 05/10/19 05/10/19 03:31 03:41 03:45 Temperature 98.8 F Pulse Rate 79 99 H Pulse Rate [ From Monitor] Respiratory 10 L 19 Rate Blood Pressure 149/71 149/71 O2 Sat by Pulse 99 89 Oximetry 05/10/19 05/10/19 05/10/19 04:00 04:15 04:30 Temperature Pulse Rate 106 H 102 H 91 H Pulse Rate [ 113 H From Monitor] Respiratory 40 H 14 21 Rate Blood Pressure 150/59 138/54 133/62 O2 Sat by Pulse 87 93 89 Oximetry 05/10/19 05/10/19 05/10/19 04:45 05:00 05:15 Temperature Pulse Rate 83 84 79 Pulse Rate [ From Monitor] Respiratory 18 15 14 Rate Blood Pressure 126/66 115/62 111/66 O2 Sat by Pulse 95 96 98 Oximetry 05/10/19 05/10/19 05/10/19 05:30 05:45 06:00 Temperature Pulse Rate 79 76 77 Pulse Rate [ From Monitor] Respiratory 20 15 19 Rate Blood Pressure 119/68 118/62 116/62 O2 Sat by Pulse 96 99 98 Oximetry 05/10/19 05/10/19 05/10/19 06:15 06:30 06:45 Temperature Pulse Rate 77 78 78 Pulse Rate [ From Monitor] Respiratory 22 21 14 Rate Blood Pressure 120/63 115/67 125/60 O2 Sat by Pulse 98 98 98 Oximetry 05/10/19 05/10/19 05/10/19 07:00 07:15 07:30 Temperature Pulse Rate 79 105 H 94 H Pulse Rate [ From Monitor] Respiratory 20 28 H 25 H Rate Blood Pressure 126/62 127/62 113/40 O2 Sat by Pulse 97 76 L 60 L Oximetry 05/10/19 05/10/19 05/10/19 07:45 07:58 08:00 Temperature 98.6 F Pulse Rate 102 H 105 H 79 Pulse Rate [ 80 From Monitor] Respiratory 19 28 H Rate Blood Pressure 113/40 127/62 O2 Sat by Pulse 93 76 L 93 Oximetry 05/10/19 05/10/19 05/10/19 08:01 08:15 08:30 Temperature Pulse Rate 78 81 83 Pulse Rate [ From Monitor] Respiratory 17 16 16 Rate Blood Pressure 151/76 151/76 126/55 O2 Sat by Pulse 96 98 95 Oximetry 05/10/19 05/10/19 05/10/19 08:45 09:00 09:05 Temperature Pulse Rate 85 86 84 Pulse Rate [ From Monitor] Respiratory 16 12 Rate Blood Pressure 113/40 113/39 113/39 O2 Sat by Pulse 97 96 Oximetry 05/10/19 05/10/19 05/10/19 09:15 09:30 09:45 Temperature Pulse Rate 84 83 80 Pulse Rate [ From Monitor] Respiratory 19 16 21 Rate Blood Pressure 113/39 115/38 115/38 O2 Sat by Pulse 96 96 96 Oximetry 05/10/19 05/10/19 05/10/19 10:00 10:15 10:30 Temperature Pulse Rate 79 83 83 Pulse Rate [ From Monitor] Respiratory 13 10 L 15 Rate Blood Pressure 117/47 115/38 118/43 O2 Sat by Pulse 95 95 95 Oximetry 05/10/19 10:45 Temperature Pulse Rate 80 Pulse Rate [ From Monitor] Respiratory 13 Rate Blood Pressure 118/43 O2 Sat by Pulse 95 Oximetry Constitutional: other (morbidly obese male, sedated on vent) Eyes: non-icteric Neck: other (extremely large in circumference) Effort: normal Ascultation: Bilateral: diminished breath sounds (secondary to body habitus) Cardiovascular: regular rate and rhythm (no mrg) Gastrointestinal: normoactive bowel sounds, other (obese) Integumentary: other (swelling of L hand due to blood pressure cuff and restraints, with non-infected appearing blister on thumb) Extremities: other (1+ generalized edema) Neurologic: unable to assess Psychiatric: other (unable to assess) CBC and BMP: 05/10/19 05:00 05/10/19 05:00 ABG, PT/INR, D-dimer: ABG POC ABG pH 7.305 (7.35-7.45) L 05/10/19 04:52 ABG pH 7.403 pH Units (7.350-7.450) 05/02/19 16:05 POC ABG pCO2 62.6 (35-45) H 05/10/19 04:52 ABG pCO2 52.3 mm Hg 05/02/19 16:05 POC ABG pO2 104 (80-105) 05/10/19 04:52 ABG pO2 66.6 mm Hg (80.0-90.0) L 05/02/19 16:05 POC ABG HCO3 31.1 (22-26 mml/L) 05/10/19 04:52 POC ABG Total CO2 33 (23-27mmol/L) 05/10/19 04:52 POC ABG O2 Sat 97 05/10/19 04:52 ABG O2 Saturation 92.5 % (95.0-99.0) L 05/02/19 16:05 PT/INR, D-dimer PT 15.4 Sec. (12.2-14.9) H 05/01/19 Unknown INR 1.23 (0.87-1.13) H 05/01/19 Unknown Abnormal lab findings: Abnormal Labs 05/01/19 05/01/19 05/01/19 17:50 19:26 22:36 WBC RBC Hgb Hct MCV MCH MCHC RDW Lymph % (Auto) [place] % (Auto) Lymph # [place] # Seg Neutrophils % Seg Neutrophils # PT INR APTT POC ABG pH 7.272 L 7.331 L POC ABG pCO2 52.8 H POC ABG pO2 ABG pO2 ABG HCO3 ABG O2 Saturation ABG Base Excess ABG Hemoglobin Oxyhemoglobin Sodium 136 L Potassium 6.5 H* Chloride 97.2 L Carbon Dioxide BUN 60 H Creatinine Glucose 113 H POC Glucose Uric Acid Calcium Phosphorus Magnesium 2.40 H AST 139 H ALT 154 H Total Creatine Kinase CK-MB (CK-2) Troponin T NT-Pro-B Natriuret Pep Total Protein Albumin 3.8 L Triglycerides HDL Cholesterol Urine WBC (Auto) Urine Creatinine Urine Total Protein 05/01/19 05/01/19 05/01/19 Unknown Unknown Unknown WBC 16.1 H RBC Hgb Hct MCV MCH MCHC RDW 17.2 H Lymph % (Auto) [place] % (Auto) 9.6 H Lymph # [place] # 1.5 H Seg Neutrophils % 73.0 H Seg Neutrophils # 11.7 H PT 15.4 H INR 1.23 H APTT 22.7 L POC ABG pH POC ABG pCO2 POC ABG pO2 ABG pO2 ABG HCO3 ABG O2 Saturation ABG Base Excess ABG Hemoglobin Oxyhemoglobin Sodium Potassium Chloride Carbon Dioxide BUN Creatinine Glucose POC Glucose Uric Acid Calcium Phosphorus Magnesium AST ALT Total Creatine Kinase CK-MB (CK-2) Troponin T NT-Pro-B Natriuret Pep 6831 H Total Protein Albumin Triglycerides HDL Cholesterol Urine WBC (Auto) Urine Creatinine Urine Total Protein 05/01/19 05/02/19 05/02/19 Unknown 00:06 00:06 WBC RBC Hgb Hct MCV MCH MCHC RDW Lymph % (Auto) [place] % (Auto) Lymph # [place] # Seg Neutrophils % Seg Neutrophils # PT INR APTT POC ABG pH POC ABG pCO2 POC ABG pO2 ABG pO2 ABG HCO3 ABG O2 Saturation ABG Base Excess ABG Hemoglobin Oxyhemoglobin Sodium Potassium Chloride Carbon Dioxide BUN Creatinine Glucose POC Glucose Uric Acid Calcium Phosphorus 4.90 H Magnesium AST ALT Total Creatine Kinase 226 H CK-MB (CK-2) 5.7 H Troponin T 0.044 H NT-Pro-B Natriuret Pep Total Protein Albumin Triglycerides 182 H HDL Cholesterol 18 L Urine WBC (Auto) Urine Creatinine Urine Total Protein 05/02/19 05/02/19 05/02/19 02:08 04:40 04:41 WBC 17.6 H RBC Hgb Hct MCV MCH 27 L MCHC RDW 17.4 H Lymph % (Auto) 10.2 L [place] % (Auto) 11.0 H Lymph # [place] # 1.9 H Seg Neutrophils % 78.0 H Seg Neutrophils # 13.8 H PT INR APTT POC ABG pH POC ABG pCO2 46.8 H POC ABG pO2 63 L ABG pO2 ABG HCO3 ABG O2 Saturation ABG Base Excess ABG Hemoglobin Oxyhemoglobin Sodium Potassium Chloride 96.3 L Carbon Dioxide BUN 63 H Creatinine 1.7 H Glucose POC Glucose Uric Acid Calcium Phosphorus Magnesium AST ALT Total Creatine Kinase CK-MB (CK-2) Troponin T NT-Pro-B Natriuret Pep Total Protein Albumin Triglycerides HDL Cholesterol Urine WBC (Auto) Urine Creatinine Urine Total Protein 05/02/19 05/02/19 05/02/19 04:41 04:41 16:05 WBC RBC Hgb Hct MCV MCH MCHC RDW Lymph % (Auto) [place] % (Auto) Lymph # [place] # Seg Neutrophils % Seg Neutrophils # PT INR APTT POC ABG pH POC ABG pCO2 POC ABG pO2 ABG pO2 66.6 L ABG HCO3 31.9 H ABG O2 Saturation 92.5 L ABG Base Excess 5.8 H ABG Hemoglobin 13.3 L Oxyhemoglobin 90.6 L Sodium Potassium Chloride 97.2 L Carbon Dioxide BUN 61 H Creatinine 1.8 H Glucose POC Glucose Uric Acid Calcium Phosphorus Magnesium AST ALT Total Creatine Kinase CK-MB (CK-2) 5.2 H Troponin T 0.067 H D NT-Pro-B Natriuret Pep Total Protein Albumin Triglycerides HDL Cholesterol Urine WBC (Auto) Urine Creatinine Urine Total Protein 05/02/19 05/03/19 05/03/19 20:39 04:35 05:05 WBC 11.8 H RBC Hgb Hct MCV MCH 27 L MCHC 31 L RDW 17.2 H Lymph % (Auto) [place] % (Auto) Lymph # [place] # Seg Neutrophils % Seg Neutrophils # PT INR APTT POC ABG pH POC ABG pCO2 53.6 H 54.0 H POC ABG pO2 55 L 63 L ABG pO2 ABG HCO3 ABG O2 Saturation ABG Base Excess ABG Hemoglobin Oxyhemoglobin Sodium Potassium Chloride Carbon Dioxide BUN Creatinine Glucose POC Glucose Uric Acid Calcium Phosphorus Magnesium AST ALT Total Creatine Kinase CK-MB (CK-2) Troponin T NT-Pro-B Natriuret Pep Total Protein Albumin Triglycerides HDL Cholesterol Urine WBC (Auto) Urine Creatinine Urine Total Protein 05/03/19 05/03/19 05/03/19 05:05 10:55 16:48 WBC RBC Hgb Hct MCV MCH MCHC RDW Lymph % (Auto) [place] % (Auto) Lymph # [place] # Seg Neutrophils % Seg Neutrophils # PT INR APTT POC ABG pH 7.604 H POC ABG pCO2 POC ABG pO2 58 L ABG pO2 ABG HCO3 ABG O2 Saturation ABG Base Excess ABG Hemoglobin Oxyhemoglobin Sodium Potassium Chloride Carbon Dioxide BUN 52 H Creatinine 1.9 H Glucose 103 H POC Glucose Uric Acid Calcium Phosphorus Magnesium AST ALT Total Creatine Kinase CK-MB (CK-2) Troponin T NT-Pro-B Natriuret Pep Total Protein Albumin Triglycerides HDL Cholesterol Urine WBC (Auto) 33.0 H Urine Creatinine Urine Total Protein 05/04/19 05/04/19 05/04/19 04:49 06:50 06:50 WBC 16.0 H RBC Hgb Hct MCV MCH 27 L MCHC 31 L RDW 17.8 H Lymph % (Auto) [place] % (Auto) Lymph # [place] # Seg Neutrophils % Seg Neutrophils # PT INR APTT POC ABG pH 7.273 L POC ABG pCO2 POC ABG pO2 ABG pO2 ABG HCO3 ABG O2 Saturation ABG Base Excess ABG Hemoglobin Oxyhemoglobin Sodium 148 H Potassium 5.5 H Chloride Carbon Dioxide BUN 53 H Creatinine 3.3 H D Glucose 106 H POC Glucose Uric Acid Calcium 8.3 L Phosphorus Magnesium AST ALT Total Creatine Kinase CK-MB (CK-2) Troponin T NT-Pro-B Natriuret Pep Total Protein Albumin Triglycerides HDL Cholesterol Urine WBC (Auto) Urine Creatinine Urine Total Protein 05/05/19 05/05/19 05/05/19 00:05 04:30 05:00 WBC RBC Hgb Hct MCV MCH MCHC RDW Lymph % (Auto) [place] % (Auto) Lymph # [place] # Seg Neutrophils % Seg Neutrophils # PT INR APTT POC ABG pH 7.225 L POC ABG pCO2 > 70 H POC ABG pO2 ABG pO2 ABG HCO3 ABG O2 Saturation ABG Base Excess ABG Hemoglobin Oxyhemoglobin Sodium 151 H Potassium 5.1 H Chloride Carbon Dioxide BUN 64 H Creatinine 3.5 H Glucose 117 H POC Glucose 141 H Uric Acid Calcium 7.5 L Phosphorus Magnesium AST 93 H ALT 65 H Total Creatine Kinase CK-MB (CK-2) Troponin T NT-Pro-B Natriuret Pep Total Protein Albumin 2.9 L Triglycerides HDL Cholesterol Urine WBC (Auto) Urine Creatinine Urine Total Protein 05/05/19 05/05/19 05/05/19 05:00 12:02 17:46 WBC 12.0 H RBC Hgb 11.3 L Hct MCV MCH 27 L MCHC 30 L RDW 18.4 H Lymph % (Auto) 7.9 L [place] % (Auto) 10.2 H Lymph # 1.0 L [place] # 1.2 H Seg Neutrophils % 80.8 H Seg Neutrophils # 9.7 H PT INR APTT POC ABG pH POC ABG pCO2 POC ABG pO2 ABG pO2 ABG HCO3 ABG O2 Saturation ABG Base Excess ABG Hemoglobin Oxyhemoglobin Sodium Potassium Chloride Carbon Dioxide BUN Creatinine Glucose POC Glucose 125 H 112 H Uric Acid Calcium Phosphorus Magnesium AST ALT Total Creatine Kinase CK-MB (CK-2) Troponin T NT-Pro-B Natriuret Pep Total Protein Albumin Triglycerides HDL Cholesterol Urine WBC (Auto) Urine Creatinine Urine Total Protein 05/05/19 05/06/19 05/06/19 23:42 03:58 04:45 WBC 11.4 H RBC Hgb 10.7 L Hct 34.2 L MCV MCH 27 L MCHC 31 L RDW 16.9 H Lymph % (Auto) [place] % (Auto) Lymph # [place] # Seg Neutrophils % Seg Neutrophils # PT INR APTT POC ABG pH POC ABG pCO2 62.4 H POC ABG pO2 111 H ABG pO2 ABG HCO3 ABG O2 Saturation ABG Base Excess ABG Hemoglobin Oxyhemoglobin Sodium Potassium Chloride Carbon Dioxide BUN Creatinine Glucose POC Glucose 128 H Uric Acid Calcium Phosphorus Magnesium AST ALT Total Creatine Kinase CK-MB (CK-2) Troponin T NT-Pro-B Natriuret Pep Total Protein Albumin Triglycerides HDL Cholesterol Urine WBC (Auto) Urine Creatinine Urine Total Protein 05/06/19 05/06/19 05/06/19 04:45 05:33 12:30 WBC RBC Hgb Hct MCV MCH MCHC RDW Lymph % (Auto) [place] % (Auto) Lymph # [place] # Seg Neutrophils % Seg Neutrophils # PT INR APTT POC ABG pH POC ABG pCO2 POC ABG pO2 ABG pO2 ABG HCO3 ABG O2 Saturation ABG Base Excess ABG Hemoglobin Oxyhemoglobin Sodium 149 H Potassium Chloride Carbon Dioxide 31 H BUN 67 H Creatinine 3.2 H Glucose 125 H POC Glucose 117 H 116 H Uric Acid Calcium 7.5 L Phosphorus Magnesium AST ALT Total Creatine Kinase CK-MB (CK-2) Troponin T NT-Pro-B Natriuret Pep Total Protein Albumin Triglycerides HDL Cholesterol Urine WBC (Auto) Urine Creatinine Urine Total Protein 05/06/19 05/06/19 05/07/19 18:34 23:16 05:22 WBC RBC Hgb Hct MCV MCH MCHC RDW Lymph % (Auto) [place] % (Auto) Lymph # [place] # Seg Neutrophils % Seg Neutrophils # PT INR APTT POC ABG pH POC ABG pCO2 POC ABG pO2 ABG pO2 ABG HCO3 ABG O2 Saturation ABG Base Excess ABG Hemoglobin Oxyhemoglobin Sodium Potassium Chloride Carbon Dioxide BUN Creatinine Glucose POC Glucose 128 H 143 H 166 H Uric Acid Calcium Phosphorus Magnesium AST ALT Total Creatine Kinase CK-MB (CK-2) Troponin T NT-Pro-B Natriuret Pep Total Protein Albumin Triglycerides HDL Cholesterol Urine WBC (Auto) Urine Creatinine Urine Total Protein 05/07/19 05/07/19 05/07/19 06:33 07:03 09:35 WBC RBC Hgb Hct MCV MCH MCHC RDW Lymph % (Auto) [place] % (Auto) Lymph # [place] # Seg Neutrophils % Seg Neutrophils # PT INR APTT POC ABG pH 7.263 L 7.288 L POC ABG pCO2 POC ABG pO2 51 L 56 L ABG pO2 ABG HCO3 ABG O2 Saturation ABG Base Excess ABG Hemoglobin Oxyhemoglobin Sodium Potassium Chloride Carbon Dioxide BUN 76 H Creatinine 3.2 H Glucose 147 H POC Glucose Uric Acid Calcium 7.9 L Phosphorus Magnesium AST ALT Total Creatine Kinase CK-MB (CK-2) Troponin T NT-Pro-B Natriuret Pep Total Protein Albumin Triglycerides HDL Cholesterol Urine WBC (Auto) Urine Creatinine Urine Total Protein 05/07/19 05/07/19 05/07/19 09:35 12:17 13:45 WBC 13.4 H RBC Hgb 11.6 L Hct MCV MCH 27 L MCHC 31 L RDW 17.5 H Lymph % (Auto) [place] % (Auto) Lymph # [place] # Seg Neutrophils % Seg Neutrophils # PT INR APTT POC ABG pH POC ABG pCO2 POC ABG pO2 ABG pO2 ABG HCO3 ABG O2 Saturation ABG Base Excess ABG Hemoglobin Oxyhemoglobin Sodium Potassium Chloride Carbon Dioxide BUN Creatinine Glucose POC Glucose 130 H Uric Acid 18.0 H Calcium Phosphorus Magnesium AST ALT Total Creatine Kinase CK-MB (CK-2) Troponin T NT-Pro-B Natriuret Pep Total Protein Albumin Triglycerides HDL Cholesterol Urine WBC (Auto) Urine Creatinine Urine Total Protein 05/07/19 05/07/19 05/08/19 17:39 22:40 05:06 WBC RBC Hgb Hct MCV MCH MCHC RDW Lymph % (Auto) [place] % (Auto) Lymph # [place] # Seg Neutrophils % Seg Neutrophils # PT INR APTT POC ABG pH POC ABG pCO2 POC ABG pO2 ABG pO2 ABG HCO3 ABG O2 Saturation ABG Base Excess ABG Hemoglobin Oxyhemoglobin Sodium Potassium Chloride Carbon Dioxide BUN Creatinine Glucose POC Glucose 116 H 148 H Uric Acid Calcium Phosphorus Magnesium AST ALT Total Creatine Kinase CK-MB (CK-2) Troponin T NT-Pro-B Natriuret Pep Total Protein Albumin Triglycerides HDL Cholesterol Urine WBC (Auto) Urine Creatinine 292.8 H Urine Total Protein 269 H 05/08/19 05/08/19 05/08/19 05:32 11:28 13:48 WBC RBC Hgb Hct MCV MCH MCHC RDW Lymph % (Auto) [place] % (Auto) Lymph # [place] # Seg Neutrophils % Seg Neutrophils # PT INR APTT POC ABG pH POC ABG pCO2 45.4 H POC ABG pO2 64 L ABG pO2 ABG HCO3 ABG O2 Saturation ABG Base Excess ABG Hemoglobin Oxyhemoglobin Sodium Potassium Chloride Carbon Dioxide BUN 73 H Creatinine 2.7 H Glucose 127 H POC Glucose 107 H Uric Acid Calcium 7.6 L Phosphorus Magnesium AST ALT Total Creatine Kinase CK-MB (CK-2) Troponin T NT-Pro-B Natriuret Pep Total Protein Albumin Triglycerides HDL Cholesterol Urine WBC (Auto) Urine Creatinine Urine Total Protein 05/08/19 05/09/19 05/09/19 17:48 04:50 04:53 WBC RBC 3.07 L Hgb 8.5 L D Hct 29.3 L D MCV 96 H MCH MCHC 29 L RDW 18.1 H Lymph % (Auto) [place] % (Auto) Lymph # [place] # Seg Neutrophils % Seg Neutrophils # PT INR APTT POC ABG pH 7.316 L POC ABG pCO2 66.0 H POC ABG pO2 69 L ABG pO2 ABG HCO3 ABG O2 Saturation ABG Base Excess ABG Hemoglobin Oxyhemoglobin Sodium Potassium Chloride Carbon Dioxide BUN Creatinine Glucose POC Glucose 155 H Uric Acid Calcium Phosphorus Magnesium AST ALT Total Creatine Kinase CK-MB (CK-2) Troponin T NT-Pro-B Natriuret Pep Total Protein Albumin Triglycerides HDL Cholesterol Urine WBC (Auto) Urine Creatinine Urine Total Protein 05/09/19 05/09/19 05/09/19 05:46 07:24 12:10 WBC RBC Hgb Hct MCV MCH MCHC RDW Lymph % (Auto) [place] % (Auto) Lymph # [place] # Seg Neutrophils % Seg Neutrophils # PT INR APTT POC ABG pH POC ABG pCO2 POC ABG pO2 ABG pO2 ABG HCO3 ABG O2 Saturation ABG Base Excess ABG Hemoglobin Oxyhemoglobin Sodium Potassium Chloride Carbon Dioxide BUN 73 H Creatinine 2.4 H Glucose 153 H POC Glucose 123 H 148 H Uric Acid Calcium 8.2 L Phosphorus Magnesium AST 45 H ALT Total Creatine Kinase CK-MB (CK-2) Troponin T NT-Pro-B Natriuret Pep Total Protein 6.0 L Albumin 1.9 L Triglycerides HDL Cholesterol Urine WBC (Auto) Urine Creatinine Urine Total Protein 05/09/19 05/09/19 05/10/19 18:23 23:26 04:52 WBC RBC Hgb Hct MCV MCH MCHC RDW Lymph % (Auto) [place] % (Auto) Lymph # [place] # Seg Neutrophils % Seg Neutrophils # PT INR APTT POC ABG pH 7.305 L POC ABG pCO2 62.6 H POC ABG pO2 ABG pO2 ABG HCO3 ABG O2 Saturation ABG Base Excess ABG Hemoglobin Oxyhemoglobin Sodium Potassium Chloride Carbon Dioxide BUN Creatinine Glucose POC Glucose 147 H 121 H Uric Acid Calcium Phosphorus Magnesium AST ALT Total Creatine Kinase CK-MB (CK-2) Troponin T NT-Pro-B Natriuret Pep Total Protein Albumin Triglycerides HDL Cholesterol Urine WBC (Auto) Urine Creatinine Urine Total Protein 05/10/19 05/10/19 05/10/19 05:00 05:00 05:50 WBC RBC Hgb 10.3 L Hct 33.7 L MCV MCH 27 L MCHC 31 L RDW 17.0 H Lymph % (Auto) [place] % (Auto) Lymph # [place] # Seg Neutrophils % Seg Neutrophils # PT INR APTT POC ABG pH POC ABG pCO2 POC ABG pO2 ABG pO2 ABG HCO3 ABG O2 Saturation ABG Base Excess ABG Hemoglobin Oxyhemoglobin Sodium 147 H Potassium Chloride Carbon Dioxide BUN 70 H Creatinine 2.6 H Glucose 155 H POC Glucose 158 H Uric Acid Calcium 8.2 L Phosphorus Magnesium AST ALT Total Creatine Kinase CK-MB (CK-2) Troponin T NT-Pro-B Natriuret Pep Total Protein 6.1 L Albumin 2.5 L Triglycerides HDL Cholesterol Urine WBC (Auto) Urine Creatinine Urine Total Protein
[2019-05-10] MEDS ORDERED: VANCOMYCIN 2,000 MG in SODIUM CHLORIDE 0.9% 500 ML 500 ML IV ONE (12:00)
--- NOTE | 2019-05-10 14:27 | Progress Note ---
Assessment and Plan Cultures: Blood cultures: no growth thus far Sputum culture: no growth thus far urine culture: no growth resp culture: no growth A/P: 34-year-old male with obesity admitted with: #Fever, SIRS: Patient was afebrile for the first 2 days of hospitalization, then he developed a fever of 101.2F. ?aspiration related. Apparently was using CPAP. Now febrile again, ?UTI. UA showed pyuria, had indwelling Berkowitz which was removed. Urine culture with no growth. #Acute hypoxic hypercapneic respiratory failure, possibly obesity hypoventilation syndrome: on the vent. Pulmonary managing. #Morbid obesity #CARLA: creatinine elevated. dose abx accordingly. #Elevated LFTs: RUQ US showed fatty liver, small GB sludge. Improving. #Acute encephalopathy with ?seizure activity: persistent fevers. Agree with possible meningitis coverage Recs: Fevers better. continue empiric meningitis coverage with Ceftriaxone, Vancomycin I suspect initial non-response to abx may have been due to inadequate dosing in this patient with morbid obesity When feasible LP and possible MRI brain (though may be limited due to patient's weight) Nancy Bearden MD [facility] [place] [facility] ([facility]) M: [phone] O: [phone] F: [phone] Subjective Date of service: 05/10/19 Principal diagnosis: HF; acute hypoxemic resp failure, SIRS, CARLA Interval history: Febrile to 100.5, normal WBC Objective - Exam Narrative Exam: Constitutional: sedated, intubated. Morbid obesity Head, Ears, Nose: Normocephalic, atraumatic. External ears, nose normal Eyes: Conjunctivae/corneas clear. No icterus. No ptosis. Neck: intubated Oral: intubated Cardiovascular: S1, S2 normal. Respiratory: Good air entry, clear to auscultation bilaterally GI: Soft, non-tender; bowel sounds normal. No peritoneal signs Musculoskeletal: No pedal edema, no cyanosis. Skin: No rash or abscess Hem/Lymphatic: No palpable cervical or supraclavicular nodes. No lymphangitis Psych: no agitation Neurological: sedated, intubated, on vent - Constitutional Vitals: Vital Signs Temp Pulse Resp BP Pulse Ox 100.5 F H 82 13 118/43 82 L 05/10/19 12:00 05/10/19 11:56 05/10/19 10:45 05/10/19 11:56 05/10/19 11:56 Temperature -Last 24 Hours Temperature 100.5 F Temperature 98.6 F Temperature 98.8 F Temperature 98.0 F Temperature 98.9 F Temperature 98.4 F - Labs CBC & Chem 7: 05/10/19 05:00 05/10/19 05:00 Labs: Abnormal lab results 05/09/19 05/09/19 05/10/19 Range/Units 18:23 23:26 04:52 Hgb (11.8-15.2) gm/dl Hct (35.5-45.6) % MCH (28-32) pg MCHC (32-34) % RDW (13.2-15.2) % POC ABG pH 7.305 L (7.35-7.45) POC ABG pCO2 62.6 H (35-45) Sodium (137-145) mmol/L BUN (9-20) mg/dL Creatinine (0.8-1.5) mg/dL Glucose (75-100) mg/dL POC Glucose 147 H 121 H (70-105) Calcium (8.4-10.2) mg/dL Total Protein (6.3-8.2) g/dL Albumin (3.9-5) g/dL 05/10/19 05/10/19 05/10/19 Range/Units 05:00 05:00 05:50 Hgb 10.3 L (11.8-15.2) gm/dl Hct 33.7 L (35.5-45.6) % MCH 27 L (28-32) pg MCHC 31 L (32-34) % RDW 17.0 H (13.2-15.2) % POC ABG pH (7.35-7.45) POC ABG pCO2 (35-45) Sodium 147 H (137-145) mmol/L BUN 70 H (9-20) mg/dL Creatinine 2.6 H (0.8-1.5) mg/dL Glucose 155 H (75-100) mg/dL POC Glucose 158 H (70-105) Calcium 8.2 L (8.4-10.2) mg/dL Total Protein 6.1 L (6.3-8.2) g/dL Albumin 2.5 L (3.9-5) g/dL 05/10/19 Range/Units 13:14 Hgb (11.8-15.2) gm/dl Hct (35.5-45.6) % MCH (28-32) pg MCHC (32-34) % RDW (13.2-15.2) % POC ABG pH (7.35-7.45) POC ABG pCO2 (35-45) Sodium (137-145) mmol/L BUN (9-20) mg/dL Creatinine (0.8-1.5) mg/dL Glucose (75-100) mg/dL POC Glucose 159 H (70-105) Calcium (8.4-10.2) mg/dL Total Protein (6.3-8.2) g/dL Albumin (3.9-5) g/dL
--- NOTE | 2019-05-10 16:05 | Progress Note ---
Assessment and Plan Assessment and plan: 34-year-old man who is morbidly obese with unknown medical problem was brought to the emergency room with complaints of shortness of breath and difficulty sleeping. History is per the chart, nurse reported that his saturation dropped to 28%, heart rate in the 50s, she checked on them, he was cyanotic and was subsequently intubated and recieved 2 rounds of epinephrine. Cardiac arrest. * Discussed with pulmonary, Some improvement in saturation to the 90% range. Remains on 70% FIO2 and 20 PEEP * Diuresis held due to renal function worsening, appears to be improving today * still with fever * per ID empiric meningitis coverage with Ceftriaxone, Vancomycin * Flagyl discontinued * Acyclovir also added, renally adjusted- now discontinued * When feasible LP and possible MRI brain (though may be limited due to patient's weight) Blood cultures: no growth thus far Sputum culture: no growth thus far urine culture: no growth s/p Cardiac arrest Resuscitated cardiology consulted, following Acute hypoxic and hypercapenic respiratory failure on vent >96hrs Status post intubation, continue sedation, consulted pulmonary And input noted "continue to wean FiO2 for sats >88% and or PaO2 of greater than 55. Do not wean PEEP until FiO2 is a 50% or lower. Permissive hypercapnea is ok as long as pH is not lower than 7.2" Oxygen demand increased due to hypoxia, Pulmoanry adjusting vent but better today Obesity Hypoventilation syndrome Sepsis- not present on admission -On abx, ID following. LP when able Acylovir stopped ?seizure activity -Meninigitis prophy -Neurology consult -EEG- read pending Acute CHF, new onset, Diurese with IV lasix held, monitor I/O, daily weights Cardiology following. Added beta-jenny, no TIM inhibitor secondary to renal insufficiency Hypertension malignant Start antihypertensive, monitor blood pressure IV hydralazine as needed for further control Acute kidney injury due to ATN begning to trend downwards Nephrology following and input noted. Berkowitz for strict I/Os Hyperkalemia-Resolved Passive congestive hepatic syndrome -LFT elevated but trending down -Noted Gallbladder sludge DVT prophylaxis with Lovenox Morbid obesity Full code status. Prognosis guarded No family present The high probability of a clinically significant, sudden or life threatening deterioration of the [cardiovascular, Pulmonary, renal, neurological] system(s) required my full and direct attention, intervention and personal management. The aggregate critical care time was [35] minutes. This time is in addition to time spent performing reported procedures but includes the following: [x] Data Review and interpretation [x] Patient assessment and monitoring of vital signs [x] Documentation [x] Medication orders and management History Interval history: Patient seen and examined, remains on full ventilatory support, FIO2 demand improving, no new fever or seizure Hospitalist Physical - Physical exam Narrative exam: Gen: Not in acute distress, intubated, on fentanyl, no evidence of vent-patient dyschronny on vent, morbidly obese HEENT: Normocephalic, atraumatic, short and large neck circumference Neck: supple, no JVD Heart: S1 and S2 reg, no murmurs, rubs or gallop Lungs: Clear to auscultation bilaterally, no wheeze Abd: soft, NT, non distended, normal bowel sounds Ext:No edema, no cyanosis Neuro: Intubated, sedated - Constitutional Vitals: Temp Pulse Resp BP Pulse Ox 100.5 F H 87 23 116/48 95 05/10/19 12:00 05/10/19 15:15 05/10/19 15:15 05/10/19 15:15 05/10/19 15:15 General appearance: Present: no acute distress Results - Labs CBC & Chem 7: 05/10/19 05:00 05/10/19 05:00 Labs: Laboratory Last Values WBC 8.7 K/mm3 (4.5-11.0) 05/10/19 05:00 RBC 3.82 M/mm3 (3.65-5.03) 05/10/19 05:00 Hgb 10.3 gm/dl (11.8-15.2) L 05/10/19 05:00 Hct 33.7 % (35.5-45.6) L 05/10/19 05:00 MCV 88 fl (84-94) 05/10/19 05:00 MCH 27 pg (28-32) L 05/10/19 05:00 MCHC 31 % (32-34) L 05/10/19 05:00 RDW 17.0 % (13.2-15.2) H 05/10/19 05:00 Plt Count 217 K/mm3 (140-440) 05/10/19 05:00 Lymph % (Auto) 7.9 % (13.4-35.0) L 05/05/19 05:00 [place] % (Auto) 10.2 % (0.0-7.3) H 05/05/19 05:00 Eos % (Auto) 0.6 % (0.0-4.3) 05/05/19 05:00 Baso % (Auto) 0.5 % (0.0-1.8) 05/05/19 05:00 Lymph # 1.0 K/mm3 (1.2-5.4) L 05/05/19 05:00 [place] # 1.2 K/mm3 (0.0-0.8) H 05/05/19 05:00 Eos # 0.1 K/mm3 (0.0-0.4) 05/05/19 05:00 Baso # 0.1 K/mm3 (0.0-0.1) 05/05/19 05:00 Seg Neutrophils % 80.8 % (40.0-70.0) H 05/05/19 05:00 Seg Neutrophils # 9.7 K/mm3 (1.8-7.7) H 05/05/19 05:00 PT 15.4 Sec. (12.2-14.9) H 05/01/19 Unknown INR 1.23 (0.87-1.13) H 05/01/19 Unknown APTT 22.7 Sec. (24.2-36.6) L 05/01/19 Unknown POC ABG pH 7.305 (7.35-7.45) L 05/10/19 04:52 ABG pH 7.403 pH Units (7.350-7.450) 05/02/19 16:05 POC ABG pCO2 62.6 (35-45) H 05/10/19 04:52 ABG pCO2 52.3 mm Hg 05/02/19 16:05 POC ABG pO2 104 (80-105) 05/10/19 04:52 ABG pO2 66.6 mm Hg (80.0-90.0) L 05/02/19 16:05 POC ABG HCO3 31.1 (22-26 mml/L) 05/10/19 04:52 ABG HCO3 31.9 mmol/L (20.0-26.0) H 05/02/19 16:05 POC ABG Total CO2 33 (23-27mmol/L) 05/10/19 04:52 POC ABG O2 Sat 97 05/10/19 04:52 ABG O2 Saturation 92.5 % (95.0-99.0) L 05/02/19 16:05 ABG O2 Content 16.9 (0.0-44) 05/02/19 16:05 POC ABG Base Excess 5 ((-2) - (+3)mmol/L) 05/10/19 04:52 ABG Base Excess 5.8 mmol/L (-2.0-3.0) H 05/02/19 16:05 ABG Hemoglobin 13.3 gm/dl (14.0-18.0) L 05/02/19 16:05 ABG Carboxyhemoglobin 1.6 % (0.0-5.0) 05/02/19 16:05 ABG Methemoglobin 0.6 % (0.0-1.5) 05/02/19 16:05 Oxyhemoglobin 90.6 % (95.0-99.0) L 05/02/19 16:05 FiO2 100 % 05/10/19 04:52 Sodium 147 mmol/L (137-145) H 05/10/19 05:00 Potassium 3.9 mmol/L (3.6-5.0) 05/10/19 05:00 Chloride 106.0 mmol/L (98-107) 05/10/19 05:00 Carbon Dioxide 25 mmol/L (22-30) 05/10/19 05:00 Anion Gap 20 mmol/L 05/10/19 05:00 BUN 70 mg/dL (9-20) H 05/10/19 05:00 Creatinine 2.6 mg/dL (0.8-1.5) H 05/10/19 05:00 Estimated GFR 35 ml/min 05/10/19 05:00 BUN/Creatinine Ratio 27 % 05/10/19 05:00 Glucose 155 mg/dL (75-100) H 05/10/19 05:00 POC Glucose 159 (70-105) H 05/10/19 13:14 Osmolality 327 Mosm/kg 05/07/19 13:45 Uric Acid 18.0 mg/dL (3.5-7.6) H 05/07/19 13:45 Calcium 8.2 mg/dL (8.4-10.2) L 05/10/19 05:00 Phosphorus 4.90 mg/dL (2.5-4.5) H 05/02/19 00:06 Magnesium 2.30 mg/dL (1.7-2.3) 05/02/19 00:06 Total Bilirubin 0.20 mg/dL (0.1-1.2) 05/10/19 05:00 AST 34 units/L (5-40) 05/10/19 05:00 ALT 35 units/L (7-56) 05/10/19 05:00 Alkaline Phosphatase 45 units/L (35-129) 05/10/19 05:00 Total Creatine Kinase 131 units/L (55-170) 05/02/19 04:41 CK-MB (CK-2) 5.2 ng/mL (0.0-4.0) H 05/02/19 04:41 CK-MB (CK-2) Rel Index 3.9 (0-4) 05/02/19 04:41 Troponin T 0.067 ng/mL (0.00-0.029) H D 05/02/19 04:41 NT-Pro-B Natriuret Pep 6831 pg/mL (0-450) H 05/01/19 Unknown Total Protein 6.1 g/dL (6.3-8.2) L 05/10/19 05:00 Albumin 2.5 g/dL (3.9-5) L 05/10/19 05:00 Albumin/Globulin Ratio 0.7 % 05/10/19 05:00 Triglycerides 182 mg/dL (2-149) H 05/02/19 00:06 Cholesterol 173 mg/dL (50-199) 05/02/19 00:06 LDL Cholesterol Direct 126 mg/dL (50-130) 05/02/19 00:06 HDL Cholesterol 18 mg/dL (40-59) L 05/02/19 00:06 Cholesterol/HDL Ratio 9.61 % 05/02/19 00:06 Procalcitonin 0.54 ng/mL (<0.15) 05/03/19 11:52 Urine Color Yellow (Yellow) 05/03/19 10:55 Urine Turbidity Turbid (Clear) 05/03/19 10:55 Urine pH 5.0 (5.0-7.0) 05/03/19 10:55 Ur Specific [place] 1.014 (1.003-1.030) 05/03/19 10:55 Urine Protein <15 mg/dl mg/dL (Negative) 05/03/19 10:55 Urine Glucose (UA) Neg mg/dL (Negative) 05/03/19 10:55 Urine Ketones Neg mg/dL (Negative) 05/03/19 10:55 Urine Blood Lg (Negative) 05/03/19 10:55 Urine Nitrite Neg (Negative) 05/03/19 10:55 Urine Bilirubin Neg (Negative) 05/03/19 10:55 Urine Urobilinogen < 2.0 mg/dL (<2.0) 05/03/19 10:55 Ur Leukocyte Esterase Mod (Negative) 05/03/19 10:55 Urine WBC (Auto) 33.0 /HPF (0.0-6.0) H 05/03/19 10:55 Urine RBC (Auto) 8.0 /HPF (0.0-6.0) 05/03/19 10:55 Urine Bacteria (Auto) 1+ /HPF (Negative) 05/03/19 10:55 Uric Acid Crystals 3+ 05/03/19 10:55 Urine Mucus Few /HPF 05/03/19 10:55 Urine Creatinine 292.8 mg/dL (0.1-20.0) H 05/07/19 22:40 Urine Sodium 11 mmol/L 05/07/19 22:40 Urine Total Protein 269 mg/dL (5-11.8) H 05/07/19 22:40 Random Vancomycin 5.9 ug/mL (0-40.0) 05/10/19 09:15 Hepatitis A IgM Ab Non-reactive (NonReactive) 05/07/19 13:45 Hep Bs Antigen Non-reactive (Negative) 05/07/19 13:45 Hep B Core IgM Ab Non-reactive (NonReactive) 05/07/19 13:45 Hepatitis C Antibody Non-reactive (NonReactive) 05/07/19 13:45 Active Medications - Current Medications Current Medications: Generic Name Dose Route Start Last Admin Trade Name Freq PRN Reason Stop Dose Admin Acetaminophen 650 mg 05/01/19 22:46 05/06/19 13:00 Tylenol PO 650 mg Q4H PRN Administration Pain MILD(1-3)/Fever >100.5/FREEMAN Lipase/Protease/Amylase 1 each 05/10/19 11:23 Pancremannie Fletcher 10,500 Unit FEEDTUBE PRN PRN For Clogged Feeding Tube Dextrose 50 gm 05/01/19 20:24 D50w (25gm) Vial IV Q30MIN PRN Hypoglycemia Protocol Enoxaparin Sodium 30 mg 05/05/19 10:00 05/10/19 09:05 Enoxaparin SUB-Q 30 mg QDAY VICKEY Administration Famotidine 20 mg 05/05/19 10:00 05/10/19 09:05 Pepcid PO 20 mg DAILY VICKEY Administration Fludrocortisone Acetate 0.1 mg 05/12/19 10:00 Florinef PO MoWeFr VICKEY Hydrophilic Ointment 1 applic 05/01/19 21:14 Vaseline Lip Therapy TP Q2HR PRN Dry Lips Fentanyl Citrate 2,000 mcg in 100 mls @ 10.195 mls/hr 05/01/19 22:00 05/10/19 14:45 Fentanyl Drip Premix IV 4 mcg/kg/hr TITR VICKEY 40.78 mls/hr Administration Protocol 1 MCG/KG/HR Propofol 1,000 mg in 100 mls @ 7.011 mls/hr 05/03/19 04:00 05/05/19 07:36 Diprivan 10 Mg/Ml IV 0 mcg/kg/min TITR VICKEY 0 mls/hr Titration Protocol 5 MCG/KG/MIN Norepinephrine 4 mg in 250 mls @ 7.5 mls/hr 05/03/19 18:00 Levophed Drip 4 Mg/Ns 250 Ml IV TITR VICKEY Protocol 2 MCG/MIN Sodium Chloride 500 mls @ 10 mls/hr 05/06/19 15:00 Nacl 0.9% 500 Ml IV DIRECT VICKEY Ceftriaxone Sodium 2 gm in 100 mls @ 200 mls/hr 05/07/19 22:00 05/10/19 09:05 Rocephin/Ns 2 Gm/100 Ml IV 200 mls/hr Q12HR VICKEY Administration Protocol Levetiracetam 750 mg/ Dextrose 107.5 mls @ 400 mls/hr 05/09/19 22:00 05/10/19 10:48 IV 400 mls/hr Q12HR VICKEY Administration Lorazepam 2 mg 05/06/19 06:22 05/10/19 13:00 Ativan IV 2 mg Q4H PRN Administration Seizures/AGITATION Metoprolol Tartrate 25 mg 05/02/19 04:00 05/10/19 09:05 Metoprolol PO 25 mg BID VICKEY Administration Multi-Ingred Cream/Lotion/Oil/Oint 1 applic 05/01/19 21:14 Artificial Tears Ophth Oint OU Q4HR PRN Dry Eye(s) Ondansetron HCl 4 mg 05/01/19 22:46 Zofran IV Q8H PRN Nausea And Vomiting Simple Syrup 15 ml 05/10/19 11:23 Simple Syrup FEEDTUBE PRN PRN Hypoglycemia Simple Syrup 30 ml 05/10/19 11:23 Simple Syrup FEEDTUBE PRN PRN Hypoglycemia Sodium Bicarbonate 325 mg 05/10/19 11:23 Sodium Bicarbonate FEEDTUBE PRN PRN For Clogged Feeding Tube Sodium Chloride 10 ml 05/02/19 10:00 05/10/19 09:06 Sodium Chloride Flush Syringe 10 Ml IV 10 ml BID VICKEY Administration Sodium Chloride 10 ml 05/01/19 22:46 05/05/19 02:28 Sodium Chloride Flush Syringe 10 Ml IV 10 ml PRN PRN Administration LINE FLUSH Nutrition/Malnutrition Assess - Dietary Evaluation Nutrition/Malnutrition Findings: Nutrition Notes Start: 05/04/19 12:54 Freq: Status: Active Protocol: Document 05/10/19 12:37 LM (Rec: 05/10/19 12:42 LM [id number]) Nutrition Notes Initial or Follow up Brief Note Current Diagnosis Acute Kidney Injury,Sepsis, Respiratory Failure Current Diet Nepro 1.8 at 60ml/hr Labs/Tests Na 147 BUN 70 Cr 2.6 Pertinent Medications Reviewed Height 6 ft 4 in Weight 227.5 kg [place] Body Weight (kg) 91.81 BMI 61.0 Weight Status Morbidly Obese Subjective/Other Information MD consult to adjust TF. Na elevated, will increase flush. Nutrition Intervention Nutrition Support: Nepro 1.8 at 50 ml/hr flush 300 ml q4h for hypernatremia flush 200 ml q4hr once hypernatremia resolves Follow-Up By: 05/14/19 Additional Comments F/U for TF tolerance, Na lab
[2019-05-11] MEDS: fentaNYL DRIP Premix 2,000 MCG/100 ML BAG IV SCH ×6 (00:29→21:42)
[2019-05-11 08:29] LABS: Calcium 8.7 mg/dL (8.4-10.2)
[2019-05-11] MEDS: levETIRAcetam 750 MG in DEXTROSE 5% IN WATER 100 ML IV SCH ×2 (10:03→21:49)
[2019-05-11] MEDS: ENOXAPARIN 30 MG/0.3 ML INJ SUB-Q SCH (10:04)
[2019-05-11] MEDS: cefTRIAXone/NS 2 GM/100 ML 2 GM/100 ML BAG IV SCH ×2 (10:04→21:12)
[2019-05-11] MEDS: METOPROLOL TARTRATE 25 MG TAB PO SCH ×2 (10:04→21:22)
[2019-05-11] MEDS: FAMOTIDINE 20 MG TAB PO SCH (10:04)
--- NOTE | 2019-05-11 10:26 | Progress Note ---
Assessment and Plan # Acute kidney injury: creatinine remains higher than presumed baseline of 1.9 on 05/03/2019, stable at 2.6 today. Suspect tubular injury in setting of sepsis, respiratory failure, hypotension. S/p diuresis on 05/09 - continue supportive measures, appreciate pulm and ID input - avoid nephrotoxins - diuresis prn per pulm, will adjust down florinef. Would ideally like to avoid over diuresis due to risk to renal tubule recovery, no indication for diuretic today from renal perspective - previous studies reviewed, will need repeat ultrasound renal, ordered for today - no indication for renal replacement therapy - follow vanc levels # Hypernatremia - will continue to wean down florinef - continue free water flushes with TF # HTN: BP reasonable, will work to wean off florinef # Anemia: hemoglobin improved to 10.3, pRBC transfusion prn # Encephalopathy, seizure disorder, hypoxic respiratory failure, fever: ID and pulm following We'll continue to follow and make recommendation from renal standpoint for this critically ill patient; we appreciate the opportunity to assist in his care. Subjective Date of service: 05/11/19 Principal diagnosis: HF; acute hypoxemic resp failure, SIRS, CARLA Interval history: No acute events noted. Remains intubated and sedated. Objective - Exam Narrative Exam: General: No acute distress/ intubated and sedated HEENT: ET tube in place Neck: Supple Chest:coarse mechanical breath sounds, PRVC with FiO2 50% Heart: Regular rate and rhythm Abdomen: Soft nontender Extremity: no edema Psych: sedated Derm: No petechial rash - Vital Signs Vital signs: Vital Signs - 12hr 05/10/19 05/10/19 05/10/19 22:30 22:45 23:00 Temperature Pulse Rate 78 78 80 Pulse Rate [ From Monitor] Respiratory 23 Rate Blood Pressure 115/45 113/53 113/49 O2 Sat by Pulse 99 99 99 Oximetry 05/10/19 05/10/19 05/10/19 23:15 23:17 23:30 Temperature Pulse Rate 82 85 81 Pulse Rate [ From Monitor] Respiratory 23 Rate Blood Pressure 113/42 113/42 121/56 O2 Sat by Pulse 99 98 99 Oximetry 05/10/19 05/10/19 05/11/19 23:36 23:45 00:00 Temperature 98.8 F Pulse Rate 79 90 Pulse Rate [ 85 From Monitor] Respiratory 22 1 L Rate Blood Pressure 115/58 119/61 O2 Sat by Pulse 99 98 Oximetry 05/11/19 05/11/19 05/11/19 00:15 00:30 00:45 Temperature Pulse Rate 85 87 95 H Pulse Rate [ From Monitor] Respiratory 23 24 22 Rate Blood Pressure 115/57 114/51 107/55 O2 Sat by Pulse 99 99 95 Oximetry 05/11/19 05/11/19 05/11/19 01:00 01:15 01:30 Temperature Pulse Rate 93 H 86 89 Pulse Rate [ From Monitor] Respiratory 18 31 H 21 Rate Blood Pressure 99/67 119/61 115/61 O2 Sat by Pulse 96 97 99 Oximetry 05/11/19 05/11/19 05/11/19 01:45 02:00 02:15 Temperature Pulse Rate 91 H 89 88 Pulse Rate [ From Monitor] Respiratory 28 H 24 24 Rate Blood Pressure 115/46 122/50 126/58 O2 Sat by Pulse 99 98 99 Oximetry 05/11/19 05/11/19 05/11/19 02:30 02:45 03:00 Temperature Pulse Rate 88 87 87 Pulse Rate [ From Monitor] Respiratory 24 25 H 21 Rate Blood Pressure 127/59 123/56 123/56 O2 Sat by Pulse 99 100 100 Oximetry 05/11/19 05/11/19 05/11/19 03:15 03:30 03:34 Temperature 100 F H Pulse Rate 87 87 Pulse Rate [ From Monitor] Respiratory 22 23 Rate Blood Pressure 124/53 123/58 O2 Sat by Pulse 100 99 Oximetry 05/11/19 05/11/19 05/11/19 03:45 04:00 04:05 Temperature Pulse Rate 87 86 88 Pulse Rate [ 88 From Monitor] Respiratory 22 23 Rate Blood Pressure 103/57 124/55 126/57 O2 Sat by Pulse 99 99 100 Oximetry 05/11/19 05/11/19 05/11/19 04:15 04:30 04:45 Temperature Pulse Rate 87 89 91 H Pulse Rate [ From Monitor] Respiratory 20 24 24 Rate Blood Pressure 126/57 124/56 125/58 O2 Sat by Pulse 99 100 100 Oximetry 05/11/19 05/11/19 05/11/19 05:00 05:15 05:30 Temperature Pulse Rate 95 H 92 H 98 H Pulse Rate [ From Monitor] Respiratory 12 20 13 Rate Blood Pressure 127/61 119/53 113/43 O2 Sat by Pulse 99 96 93 Oximetry 05/11/19 05/11/19 05/11/19 05:45 06:00 06:15 Temperature Pulse Rate 94 H 98 H 100 H Pulse Rate [ From Monitor] Respiratory 11 L 16 21 Rate Blood Pressure 108/42 119/49 115/51 O2 Sat by Pulse 94 94 95 Oximetry 05/11/19 05/11/19 05/11/19 06:30 06:45 07:00 Temperature Pulse Rate 102 H 105 H 106 H Pulse Rate [ From Monitor] Respiratory 12 18 13 Rate Blood Pressure 124/51 116/48 125/56 O2 Sat by Pulse 95 94 96 Oximetry 05/11/19 05/11/19 05/11/19 07:15 07:30 07:45 Temperature Pulse Rate 105 H 104 H 107 H Pulse Rate [ From Monitor] Respiratory 15 17 18 Rate Blood Pressure 117/60 138/63 143/72 O2 Sat by Pulse 98 98 97 Oximetry 05/11/19 05/11/19 05/11/19 07:55 08:00 08:15 Temperature Pulse Rate 105 H 103 H 110 H Pulse Rate [ 88 From Monitor] Respiratory 22 12 Rate Blood Pressure 143/72 132/63 147/61 O2 Sat by Pulse 96 96 94 Oximetry 05/11/19 05/11/19 05/11/19 08:30 08:45 09:00 Temperature Pulse Rate 106 H 103 H 103 H Pulse Rate [ From Monitor] Respiratory 17 20 21 Rate Blood Pressure 132/56 130/56 128/55 O2 Sat by Pulse 94 96 96 Oximetry 05/11/19 05/11/19 05/11/19 09:15 09:30 10:04 Temperature Pulse Rate 102 H 102 H 99 H Pulse Rate [ From Monitor] Respiratory 20 18 Rate Blood Pressure 128/53 130/49 136/56 O2 Sat by Pulse 97 97 Oximetry - Lab 05/10/19 05:00 05/11/19 07:26 Most recent lab results ABG pH 7.403 pH Units (7.350-7.450) 05/02/19 16:05 ABG pCO2 52.3 mm Hg 05/02/19 16:05 ABG pO2 66.6 mm Hg (80.0-90.0) L 05/02/19 16:05 ABG HCO3 31.9 mmol/L (20.0-26.0) H 05/02/19 16:05 ABG O2 Saturation 92.5 % (95.0-99.0) L 05/02/19 16:05 Calcium 8.7 mg/dL (8.4-10.2) 05/11/19 07:26 Phosphorus 4.90 mg/dL (2.5-4.5) H 05/02/19 00:06 Magnesium 2.30 mg/dL (1.7-2.3) 05/02/19 00:06 Urine Creatinine 292.8 mg/dL (0.1-20.0) H 05/07/19 22:40 Urine Sodium 11 mmol/L 05/07/19 22:40 Urine Total Protein 269 mg/dL (5-11.8) H 05/07/19 22:40 Medications & Allergies - Medications Allergies/Adverse Reactions: Allergies No Known Allergies Allergy (Verified 05/01/19 20:27) Home Medications: Home Medications Medication Instructions Recorded Confirmed Last Taken Type No Known Home Medications [No 05/03/19 05/03/19 Unknown History Reported Home Medications] Active Medications: Generic Name Dose Route Start Last Admin Trade Name Freq PRN Reason Stop Dose Admin Acetaminophen 650 mg 05/01/19 22:46 05/06/19 13:00 Tylenol PO 650 mg Q4H PRN Administration Pain MILD(1-3)/Fever >100.5/FREEMAN Lipase/Protease/Amylase 1 each 05/10/19 11:[address] 10,500 Unit FEEDTUBE PRN PRN For Clogged Feeding Tube Dextrose 50 gm 05/01/19 20:24 D50w (25gm) Vial IV Q30MIN PRN Hypoglycemia Protocol Enoxaparin Sodium 30 mg 05/05/19 10:00 05/11/19 10:04 Enoxaparin SUB-Q 30 mg QDAY VICKEY Administration Famotidine 20 mg 05/05/19 10:00 05/11/19 10:04 Pepcid PO 20 mg DAILY VICKEY Administration Fludrocortisone Acetate 0.1 mg 05/12/19 10:00 Florinef PO MoWeFr VICKEY Hydrophilic Ointment 1 applic 05/01/19 21:14 Vaseline Lip Therapy TP Q2HR PRN Dry Lips Fentanyl Citrate 2,000 mcg in 100 mls @ 10.195 mls/hr 05/01/19 22:00 05/11/19 09:42 Fentanyl Drip Premix IV 2 mcg/kg/hr TITR VICKEY 20.39 mls/hr Administration Protocol 1 MCG/KG/HR Propofol 1,000 mg in 100 mls @ 7.011 mls/hr 05/03/19 04:00 05/11/19 08:20 Diprivan 10 Mg/Ml IV 20 mcg/kg/min TITR VICKEY 28.044 mls/hr Administration Protocol 5 MCG/KG/MIN Norepinephrine 4 mg in 250 mls @ 7.5 mls/hr 05/03/19 18:00 Levophed Drip 4 Mg/Ns 250 Ml IV TITR VICKEY Protocol 2 MCG/MIN Sodium Chloride 500 mls @ 10 mls/hr 05/06/19 15:00 Nacl 0.9% 500 Ml IV DIRECT VICKEY Ceftriaxone Sodium 2 gm in 100 mls @ 200 mls/hr 05/07/19 22:00 05/11/19 10:04 Rocephin/Ns 2 Gm/100 Ml IV 200 mls/hr Q12HR VICKEY Administration Protocol Levetiracetam 750 mg/ Dextrose 107.5 mls @ 400 mls/hr 05/09/19 22:00 05/11/19 10:03 IV 400 mls/hr Q12HR VICKEY Administration Lorazepam 2 mg 05/06/19 06:22 05/10/19 16:17 Ativan IV 2 mg Q4H PRN Administration Seizures/AGITATION Metoprolol Tartrate 25 mg 05/02/19 04:00 05/11/19 10:04 Metoprolol PO 25 mg BID VICKEY Administration Multi-Ingred Cream/Lotion/Oil/Oint 1 applic 05/01/19 21:14 Artificial Tears Ophth Oint OU Q4HR PRN Dry Eye(s) Ondansetron HCl 4 mg 05/01/19 22:46 Zofran IV Q8H PRN Nausea And Vomiting Simple Syrup 15 ml 05/10/19 11:23 Simple Syrup FEEDTUBE PRN PRN Hypoglycemia Simple Syrup 30 ml 05/10/19 11:23 Simple Syrup FEEDTUBE PRN PRN Hypoglycemia Sodium Bicarbonate 325 mg 05/10/19 11:23 Sodium Bicarbonate FEEDTUBE PRN PRN For Clogged Feeding Tube Sodium Chloride 10 ml 05/02/19 10:00 05/11/19 10:04 Sodium Chloride Flush Syringe 10 Ml IV 10 ml BID VICKEY Administration Sodium Chloride 10 ml 05/01/19 22:46 05/05/19 02:28 Sodium Chloride Flush Syringe 10 Ml IV 10 ml PRN PRN Administration LINE FLUSH
--- NOTE | 2019-05-11 11:00 | Progress Note ---
Assessment and Plan 34 y/o male with acute hypoxic, hypercapnic respiratory failure currently ventilated and sedated, now with persistent fevers and seizure. 1. Neuro: Neuro wrote a note several days ago. EEG still has not been interpreted. no further seizure like activity seen. 2. Pulm: continue to wean FiO2 for sats >88% and or PaO2 of greater than 55. Do not wean PEEP until FiO2 is at 50% or lower. Permissive hypercapnea is ok as long as pH is not lower than 7.2 3. Renal: Cr improved to less than 3.0, making urine. Hold diuresis. Stop D5 as patient is tolerating tube feeds 4. Fever: stopped. Was on scheduled tylenol, which we will stop today. CCT 31 minutes. Subjective Date of service: 05/11/19 Principal diagnosis: HF; acute hypoxemic resp failure, SIRS, CARLA Interval history: Down to 50% on the vent. Still on 20 of PEEP. No family present at bedside. Had to place flexiseal on yesterday. Also had to add diprovan to help with sedation as patient becomes very agitated and then has respiratory compromise. Objective Vital Signs - 12hr 05/10/19 05/10/19 05/10/19 23:00 23:15 23:17 Temperature Pulse Rate 80 82 85 Pulse Rate [ From Monitor] Respiratory 23 19 17 Rate Blood Pressure 113/49 113/42 113/42 O2 Sat by Pulse 99 99 98 Oximetry 05/10/19 05/10/19 05/10/19 23:30 23:36 23:45 Temperature 98.8 F Pulse Rate 81 79 Pulse Rate [ From Monitor] Respiratory 23 22 Rate Blood Pressure 121/56 115/58 O2 Sat by Pulse 99 99 Oximetry 05/11/19 05/11/19 05/11/19 00:00 00:15 00:30 Temperature Pulse Rate 90 85 87 Pulse Rate [ 85 From Monitor] Respiratory 1 L 23 24 Rate Blood Pressure 119/61 115/57 114/51 O2 Sat by Pulse 98 99 99 Oximetry 05/11/19 05/11/19 05/11/19 00:45 01:00 01:15 Temperature Pulse Rate 95 H 93 H 86 Pulse Rate [ From Monitor] Respiratory 22 18 31 H Rate Blood Pressure 107/55 99/67 119/61 O2 Sat by Pulse 95 96 97 Oximetry 05/11/19 05/11/19 05/11/19 01:30 01:45 02:00 Temperature Pulse Rate 89 91 H 89 Pulse Rate [ From Monitor] Respiratory 21 28 H 24 Rate Blood Pressure 115/61 115/46 122/50 O2 Sat by Pulse 99 99 98 Oximetry 05/11/19 05/11/19 05/11/19 02:15 02:30 02:45 Temperature Pulse Rate 88 88 87 Pulse Rate [ From Monitor] Respiratory 24 24 25 H Rate Blood Pressure 126/58 127/59 123/56 O2 Sat by Pulse 99 99 100 Oximetry 05/11/19 05/11/19 05/11/19 03:00 03:15 03:30 Temperature Pulse Rate 87 87 87 Pulse Rate [ From Monitor] Respiratory 21 22 23 Rate Blood Pressure 123/56 124/53 123/58 O2 Sat by Pulse 100 100 99 Oximetry 05/11/19 05/11/19 05/11/19 03:34 03:45 04:00 Temperature 100 F H Pulse Rate 87 86 Pulse Rate [ 88 From Monitor] Respiratory 22 23 Rate Blood Pressure 103/57 124/55 O2 Sat by Pulse 99 99 Oximetry 05/11/19 05/11/19 05/11/19 04:05 04:15 04:30 Temperature Pulse Rate 88 87 89 Pulse Rate [ From Monitor] Respiratory 20 24 Rate Blood Pressure 126/57 126/57 124/56 O2 Sat by Pulse 100 99 100 Oximetry 05/11/19 05/11/19 05/11/19 04:45 05:00 05:15 Temperature Pulse Rate 91 H 95 H 92 H Pulse Rate [ From Monitor] Respiratory 24 12 20 Rate Blood Pressure 125/58 127/61 119/53 O2 Sat by Pulse 100 99 96 Oximetry 05/11/19 05/11/19 05/11/19 05:30 05:45 06:00 Temperature Pulse Rate 98 H 94 H 98 H Pulse Rate [ From Monitor] Respiratory 13 11 L 16 Rate Blood Pressure 113/43 108/42 119/49 O2 Sat by Pulse 93 94 94 Oximetry 05/11/19 05/11/19 05/11/19 06:15 06:30 06:45 Temperature Pulse Rate 100 H 102 H 105 H Pulse Rate [ From Monitor] Respiratory 21 12 18 Rate Blood Pressure 115/51 124/51 116/48 O2 Sat by Pulse 95 95 94 Oximetry 05/11/19 05/11/19 05/11/19 07:00 07:15 07:30 Temperature Pulse Rate 106 H 105 H 104 H Pulse Rate [ From Monitor] Respiratory 13 15 17 Rate Blood Pressure 125/56 117/60 138/63 O2 Sat by Pulse 96 98 98 Oximetry 05/11/19 05/11/19 05/11/19 07:45 07:55 08:00 Temperature Pulse Rate 107 H 105 H 103 H Pulse Rate [ 88 From Monitor] Respiratory 18 22 Rate Blood Pressure 143/72 143/72 132/63 O2 Sat by Pulse 97 96 96 Oximetry 05/11/19 05/11/19 05/11/19 08:15 08:30 08:45 Temperature Pulse Rate 110 H 106 H 103 H Pulse Rate [ From Monitor] Respiratory 12 17 20 Rate Blood Pressure 147/61 132/56 130/56 O2 Sat by Pulse 94 94 96 Oximetry 05/11/19 05/11/19 05/11/19 09:00 09:15 09:30 Temperature Pulse Rate 103 H 102 H 102 H Pulse Rate [ From Monitor] Respiratory 21 20 18 Rate Blood Pressure 128/55 128/53 130/49 O2 Sat by Pulse 96 97 97 Oximetry 05/11/19 10:04 Temperature Pulse Rate 99 H Pulse Rate [ From Monitor] Respiratory Rate Blood Pressure 136/56 O2 Sat by Pulse Oximetry Constitutional: other (morbidly obese male, sedated on vent) Eyes: non-icteric Neck: other (extremely large in circumference) Effort: normal Ascultation: Bilateral: diminished breath sounds (secondary to body habitus) Cardiovascular: regular rate and rhythm (no mrg) Gastrointestinal: normoactive bowel sounds, other (obese) Integumentary: other (swelling of L hand due to blood pressure cuff and restraints, with non-infected appearing blister on thumb) Extremities: other (1+ generalized edema) Neurologic: unable to assess Psychiatric: other (unable to assess) CBC and BMP: 05/10/19 05:00 05/11/19 07:26 ABG, PT/INR, D-dimer: ABG POC ABG pH 7.305 (7.35-7.45) L 05/10/19 04:52 ABG pH 7.403 pH Units (7.350-7.450) 05/02/19 16:05 POC ABG pCO2 62.6 (35-45) H 05/10/19 04:52 ABG pCO2 52.3 mm Hg 05/02/19 16:05 POC ABG pO2 104 (80-105) 05/10/19 04:52 ABG pO2 66.6 mm Hg (80.0-90.0) L 05/02/19 16:05 POC ABG HCO3 31.1 (22-26 mml/L) 05/10/19 04:52 POC ABG Total CO2 33 (23-27mmol/L) 05/10/19 04:52 POC ABG O2 Sat 97 05/10/19 04:52 ABG O2 Saturation 92.5 % (95.0-99.0) L 05/02/19 16:05 PT/INR, D-dimer PT 15.4 Sec. (12.2-14.9) H 05/01/19 Unknown INR 1.23 (0.87-1.13) H 05/01/19 Unknown Abnormal lab findings: Abnormal Labs 05/01/19 05/01/19 05/01/19 17:50 19:26 22:36 WBC RBC Hgb Hct MCV MCH MCHC RDW Lymph % (Auto) Glynn % (Auto) Lymph # Glynn # Seg Neutrophils % Seg Neutrophils # PT INR APTT POC ABG pH 7.272 L 7.331 L POC ABG pCO2 52.8 H POC ABG pO2 ABG pO2 ABG HCO3 ABG O2 Saturation ABG Base Excess ABG Hemoglobin Oxyhemoglobin Sodium 136 L Potassium 6.5 H* Chloride 97.2 L Carbon Dioxide BUN 60 H Creatinine Glucose 113 H POC Glucose Uric Acid Calcium Phosphorus Magnesium 2.40 H AST 139 H ALT 154 H Total Creatine Kinase CK-MB (CK-2) Troponin T NT-Pro-B Natriuret Pep Total Protein Albumin 3.8 L Triglycerides HDL Cholesterol Urine WBC (Auto) Urine Creatinine Urine Total Protein 05/01/19 05/01/19 05/01/19 Unknown Unknown Unknown WBC 16.1 H RBC Hgb Hct MCV MCH MCHC RDW 17.2 H Lymph % (Auto) Glynn % (Auto) 9.6 H Lymph # Glynn # 1.5 H Seg Neutrophils % 73.0 H Seg Neutrophils # 11.7 H PT 15.4 H INR 1.23 H APTT 22.7 L POC ABG pH POC ABG pCO2 POC ABG pO2 ABG pO2 ABG HCO3 ABG O2 Saturation ABG Base Excess ABG Hemoglobin Oxyhemoglobin Sodium Potassium Chloride Carbon Dioxide BUN Creatinine Glucose POC Glucose Uric Acid Calcium Phosphorus Magnesium AST ALT Total Creatine Kinase CK-MB (CK-2) Troponin T NT-Pro-B Natriuret Pep 6831 H Total Protein Albumin Triglycerides HDL Cholesterol Urine WBC (Auto) Urine Creatinine Urine Total Protein 05/01/19 05/02/19 05/02/19 Unknown 00:06 00:06 WBC RBC Hgb Hct MCV MCH MCHC RDW Lymph % (Auto) Glynn % (Auto) Lymph # Glynn # Seg Neutrophils % Seg Neutrophils # PT INR APTT POC ABG pH POC ABG pCO2 POC ABG pO2 ABG pO2 ABG HCO3 ABG O2 Saturation ABG Base Excess ABG Hemoglobin Oxyhemoglobin Sodium Potassium Chloride Carbon Dioxide BUN Creatinine Glucose POC Glucose Uric Acid Calcium Phosphorus 4.90 H Magnesium AST ALT Total Creatine Kinase 226 H CK-MB (CK-2) 5.7 H Troponin T 0.044 H NT-Pro-B Natriuret Pep Total Protein Albumin Triglycerides 182 H HDL Cholesterol 18 L Urine WBC (Auto) Urine Creatinine Urine Total Protein 05/02/19 05/02/19 05/02/19 02:08 04:40 04:41 WBC 17.6 H RBC Hgb Hct MCV MCH 27 L MCHC RDW 17.4 H Lymph % (Auto) 10.2 L Glynn % (Auto) 11.0 H Lymph # Glynn # 1.9 H Seg Neutrophils % 78.0 H Seg Neutrophils # 13.8 H PT INR APTT POC ABG pH POC ABG pCO2 46.8 H POC ABG pO2 63 L ABG pO2 ABG HCO3 ABG O2 Saturation ABG Base Excess ABG Hemoglobin Oxyhemoglobin Sodium Potassium Chloride 96.3 L Carbon Dioxide BUN 63 H Creatinine 1.7 H Glucose POC Glucose Uric Acid Calcium Phosphorus Magnesium AST ALT Total Creatine Kinase CK-MB (CK-2) Troponin T NT-Pro-B Natriuret Pep Total Protein Albumin Triglycerides HDL Cholesterol Urine WBC (Auto) Urine Creatinine Urine Total Protein 05/02/19 05/02/19 05/02/19 04:41 04:41 16:05 WBC RBC Hgb Hct MCV MCH MCHC RDW Lymph % (Auto) Glynn % (Auto) Lymph # Glynn # Seg Neutrophils % Seg Neutrophils # PT INR APTT POC ABG pH POC ABG pCO2 POC ABG pO2 ABG pO2 66.6 L ABG HCO3 31.9 H ABG O2 Saturation 92.5 L ABG Base Excess 5.8 H ABG Hemoglobin 13.3 L Oxyhemoglobin 90.6 L Sodium Potassium Chloride 97.2 L Carbon Dioxide BUN 61 H Creatinine 1.8 H Glucose POC Glucose Uric Acid Calcium Phosphorus Magnesium AST ALT Total Creatine Kinase CK-MB (CK-2) 5.2 H Troponin T 0.067 H D NT-Pro-B Natriuret Pep Total Protein Albumin Triglycerides HDL Cholesterol Urine WBC (Auto) Urine Creatinine Urine Total Protein 05/02/19 05/03/19 05/03/19 20:39 04:35 05:05 WBC 11.8 H RBC Hgb Hct MCV MCH 27 L MCHC 31 L RDW 17.2 H Lymph % (Auto) Glynn % (Auto) Lymph # Glynn # Seg Neutrophils % Seg Neutrophils # PT INR APTT POC ABG pH POC ABG pCO2 53.6 H 54.0 H POC ABG pO2 55 L 63 L ABG pO2 ABG HCO3 ABG O2 Saturation ABG Base Excess ABG Hemoglobin Oxyhemoglobin Sodium Potassium Chloride Carbon Dioxide BUN Creatinine Glucose POC Glucose Uric Acid Calcium Phosphorus Magnesium AST ALT Total Creatine Kinase CK-MB (CK-2) Troponin T NT-Pro-B Natriuret Pep Total Protein Albumin Triglycerides HDL Cholesterol Urine WBC (Auto) Urine Creatinine Urine Total Protein 05/03/19 05/03/19 05/03/19 05:05 10:55 16:48 WBC RBC Hgb Hct MCV MCH MCHC RDW Lymph % (Auto) Glynn % (Auto) Lymph # Glynn # Seg Neutrophils % Seg Neutrophils # PT INR APTT POC ABG pH 7.604 H POC ABG pCO2 POC ABG pO2 58 L ABG pO2 ABG HCO3 ABG O2 Saturation ABG Base Excess ABG Hemoglobin Oxyhemoglobin Sodium Potassium Chloride Carbon Dioxide BUN 52 H Creatinine 1.9 H Glucose 103 H POC Glucose Uric Acid Calcium Phosphorus Magnesium AST ALT Total Creatine Kinase CK-MB (CK-2) Troponin T NT-Pro-B Natriuret Pep Total Protein Albumin Triglycerides HDL Cholesterol Urine WBC (Auto) 33.0 H Urine Creatinine Urine Total Protein 05/04/19 05/04/19 05/04/19 04:49 06:50 06:50 WBC 16.0 H RBC Hgb Hct MCV MCH 27 L MCHC 31 L RDW 17.8 H Lymph % (Auto) Glynn % (Auto) Lymph # Glynn # Seg Neutrophils % Seg Neutrophils # PT INR APTT POC ABG pH 7.273 L POC ABG pCO2 POC ABG pO2 ABG pO2 ABG HCO3 ABG O2 Saturation ABG Base Excess ABG Hemoglobin Oxyhemoglobin Sodium 148 H Potassium 5.5 H Chloride Carbon Dioxide BUN 53 H Creatinine 3.3 H D Glucose 106 H POC Glucose Uric Acid Calcium 8.3 L Phosphorus Magnesium AST ALT Total Creatine Kinase CK-MB (CK-2) Troponin T NT-Pro-B Natriuret Pep Total Protein Albumin Triglycerides HDL Cholesterol Urine WBC (Auto) Urine Creatinine Urine Total Protein 05/05/19 05/05/19 05/05/19 00:05 04:30 05:00 WBC RBC Hgb Hct MCV MCH MCHC RDW Lymph % (Auto) Glynn % (Auto) Lymph # Glynn # Seg Neutrophils % Seg Neutrophils # PT INR APTT POC ABG pH 7.225 L POC ABG pCO2 > 70 H POC ABG pO2 ABG pO2 ABG HCO3 ABG O2 Saturation ABG Base Excess ABG Hemoglobin Oxyhemoglobin Sodium 151 H Potassium 5.1 H Chloride Carbon Dioxide BUN 64 H Creatinine 3.5 H Glucose 117 H POC Glucose 141 H Uric Acid Calcium 7.5 L Phosphorus Magnesium AST 93 H ALT 65 H Total Creatine Kinase CK-MB (CK-2) Troponin T NT-Pro-B Natriuret Pep Total Protein Albumin 2.9 L Triglycerides HDL Cholesterol Urine WBC (Auto) Urine Creatinine Urine Total Protein 05/05/19 05/05/19 05/05/19 05:00 12:02 17:46 WBC 12.0 H RBC Hgb 11.3 L Hct MCV MCH 27 L MCHC 30 L RDW 18.4 H Lymph % (Auto) 7.9 L Glynn % (Auto) 10.2 H Lymph # 1.0 L Glynn # 1.2 H Seg Neutrophils % 80.8 H Seg Neutrophils # 9.7 H PT INR APTT POC ABG pH POC ABG pCO2 POC ABG pO2 ABG pO2 ABG HCO3 ABG O2 Saturation ABG Base Excess ABG Hemoglobin Oxyhemoglobin Sodium Potassium Chloride Carbon Dioxide BUN Creatinine Glucose POC Glucose 125 H 112 H Uric Acid Calcium Phosphorus Magnesium AST ALT Total Creatine Kinase CK-MB (CK-2) Troponin T NT-Pro-B Natriuret Pep Total Protein Albumin Triglycerides HDL Cholesterol Urine WBC (Auto) Urine Creatinine Urine Total Protein 05/05/19 05/06/19 05/06/19 23:42 03:58 04:45 WBC 11.4 H RBC Hgb 10.7 L Hct 34.2 L MCV MCH 27 L MCHC 31 L RDW 16.9 H Lymph % (Auto) Glynn % (Auto) Lymph # Glynn # Seg Neutrophils % Seg Neutrophils # PT INR APTT POC ABG pH POC ABG pCO2 62.4 H POC ABG pO2 111 H ABG pO2 ABG HCO3 ABG O2 Saturation ABG Base Excess ABG Hemoglobin Oxyhemoglobin Sodium Potassium Chloride Carbon Dioxide BUN Creatinine Glucose POC Glucose 128 H Uric Acid Calcium Phosphorus Magnesium AST ALT Total Creatine Kinase CK-MB (CK-2) Troponin T NT-Pro-B Natriuret Pep Total Protein Albumin Triglycerides HDL Cholesterol Urine WBC (Auto) Urine Creatinine Urine Total Protein 05/06/19 05/06/19 05/06/19 04:45 05:33 12:30 WBC RBC Hgb Hct MCV MCH MCHC RDW Lymph % (Auto) Glynn % (Auto) Lymph # Glynn # Seg Neutrophils % Seg Neutrophils # PT INR APTT POC ABG pH POC ABG pCO2 POC ABG pO2 ABG pO2 ABG HCO3 ABG O2 Saturation ABG Base Excess ABG Hemoglobin Oxyhemoglobin Sodium 149 H Potassium Chloride Carbon Dioxide 31 H BUN 67 H Creatinine 3.2 H Glucose 125 H POC Glucose 117 H 116 H Uric Acid Calcium 7.5 L Phosphorus Magnesium AST ALT Total Creatine Kinase CK-MB (CK-2) Troponin T NT-Pro-B Natriuret Pep Total Protein Albumin Triglycerides HDL Cholesterol Urine WBC (Auto) Urine Creatinine Urine Total Protein 05/06/19 05/06/19 05/07/19 18:34 23:16 05:22 WBC RBC Hgb Hct MCV MCH MCHC RDW Lymph % (Auto) Glynn % (Auto) Lymph # Glynn # Seg Neutrophils % Seg Neutrophils # PT INR APTT POC ABG pH POC ABG pCO2 POC ABG pO2 ABG pO2 ABG HCO3 ABG O2 Saturation ABG Base Excess ABG Hemoglobin Oxyhemoglobin Sodium Potassium Chloride Carbon Dioxide BUN Creatinine Glucose POC Glucose 128 H 143 H 166 H Uric Acid Calcium Phosphorus Magnesium AST ALT Total Creatine Kinase CK-MB (CK-2) Troponin T NT-Pro-B Natriuret Pep Total Protein Albumin Triglycerides HDL Cholesterol Urine WBC (Auto) Urine Creatinine Urine Total Protein 05/07/19 05/07/19 05/07/19 06:33 07:03 09:35 WBC RBC Hgb Hct MCV MCH MCHC RDW Lymph % (Auto) Glynn % (Auto) Lymph # Glynn # Seg Neutrophils % Seg Neutrophils # PT INR APTT POC ABG pH 7.263 L 7.288 L POC ABG pCO2 POC ABG pO2 51 L 56 L ABG pO2 ABG HCO3 ABG O2 Saturation ABG Base Excess ABG Hemoglobin Oxyhemoglobin Sodium Potassium Chloride Carbon Dioxide BUN 76 H Creatinine 3.2 H Glucose 147 H POC Glucose Uric Acid Calcium 7.9 L Phosphorus Magnesium AST ALT Total Creatine Kinase CK-MB (CK-2) Troponin T NT-Pro-B Natriuret Pep Total Protein Albumin Triglycerides HDL Cholesterol Urine WBC (Auto) Urine Creatinine Urine Total Protein 05/07/19 05/07/19 05/07/19 09:35 12:17 13:45 WBC 13.4 H RBC Hgb 11.6 L Hct MCV MCH 27 L MCHC 31 L RDW 17.5 H Lymph % (Auto) Glynn % (Auto) Lymph # Glynn # Seg Neutrophils % Seg Neutrophils # PT INR APTT POC ABG pH POC ABG pCO2 POC ABG pO2 ABG pO2 ABG HCO3 ABG O2 Saturation ABG Base Excess ABG Hemoglobin Oxyhemoglobin Sodium Potassium Chloride Carbon Dioxide BUN Creatinine Glucose POC Glucose 130 H Uric Acid 18.0 H Calcium Phosphorus Magnesium AST ALT Total Creatine Kinase CK-MB (CK-2) Troponin T NT-Pro-B Natriuret Pep Total Protein Albumin Triglycerides HDL Cholesterol Urine WBC (Auto) Urine Creatinine Urine Total Protein 05/07/19 05/07/19 05/08/19 17:39 22:40 05:06 WBC RBC Hgb Hct MCV MCH MCHC RDW Lymph % (Auto) Glynn % (Auto) Lymph # Glynn # Seg Neutrophils % Seg Neutrophils # PT INR APTT POC ABG pH POC ABG pCO2 POC ABG pO2 ABG pO2 ABG HCO3 ABG O2 Saturation ABG Base Excess ABG Hemoglobin Oxyhemoglobin Sodium Potassium Chloride Carbon Dioxide BUN Creatinine Glucose POC Glucose 116 H 148 H Uric Acid Calcium Phosphorus Magnesium AST ALT Total Creatine Kinase CK-MB (CK-2) Troponin T NT-Pro-B Natriuret Pep Total Protein Albumin Triglycerides HDL Cholesterol Urine WBC (Auto) Urine Creatinine 292.8 H Urine Total Protein 269 H 05/08/19 05/08/19 05/08/19 05:32 11:28 13:48 WBC RBC Hgb Hct MCV MCH MCHC RDW Lymph % (Auto) Glynn % (Auto) Lymph # Glynn # Seg Neutrophils % Seg Neutrophils # PT INR APTT POC ABG pH POC ABG pCO2 45.4 H POC ABG pO2 64 L ABG pO2 ABG HCO3 ABG O2 Saturation ABG Base Excess ABG Hemoglobin Oxyhemoglobin Sodium Potassium Chloride Carbon Dioxide BUN 73 H Creatinine 2.7 H Glucose 127 H POC Glucose 107 H Uric Acid Calcium 7.6 L Phosphorus Magnesium AST ALT Total Creatine Kinase CK-MB (CK-2) Troponin T NT-Pro-B Natriuret Pep Total Protein Albumin Triglycerides HDL Cholesterol Urine WBC (Auto) Urine Creatinine Urine Total Protein 05/08/19 05/09/19 05/09/19 17:48 04:50 04:53 WBC RBC 3.07 L Hgb 8.5 L D Hct 29.3 L D MCV 96 H MCH MCHC 29 L RDW 18.1 H Lymph % (Auto) Glynn % (Auto) Lymph # Glynn # Seg Neutrophils % Seg Neutrophils # PT INR APTT POC ABG pH 7.316 L POC ABG pCO2 66.0 H POC ABG pO2 69 L ABG pO2 ABG HCO3 ABG O2 Saturation ABG Base Excess ABG Hemoglobin Oxyhemoglobin Sodium Potassium Chloride Carbon Dioxide BUN Creatinine Glucose POC Glucose 155 H Uric Acid Calcium Phosphorus Magnesium AST ALT Total Creatine Kinase CK-MB (CK-2) Troponin T NT-Pro-B Natriuret Pep Total Protein Albumin Triglycerides HDL Cholesterol Urine WBC (Auto) Urine Creatinine Urine Total Protein 05/09/19 05/09/19 05/09/19 05:46 07:24 12:10 WBC RBC Hgb Hct MCV MCH MCHC RDW Lymph % (Auto) Glynn % (Auto) Lymph # Glynn # Seg Neutrophils % Seg Neutrophils # PT INR APTT POC ABG pH POC ABG pCO2 POC ABG pO2 ABG pO2 ABG HCO3 ABG O2 Saturation ABG Base Excess ABG Hemoglobin Oxyhemoglobin Sodium Potassium Chloride Carbon Dioxide BUN 73 H Creatinine 2.4 H Glucose 153 H POC Glucose 123 H 148 H Uric Acid Calcium 8.2 L Phosphorus Magnesium AST 45 H ALT Total Creatine Kinase CK-MB (CK-2) Troponin T NT-Pro-B Natriuret Pep Total Protein 6.0 L Albumin 1.9 L Triglycerides HDL Cholesterol Urine WBC (Auto) Urine Creatinine Urine Total Protein 05/09/19 05/09/19 05/10/19 18:23 23:26 04:52 WBC RBC Hgb Hct MCV MCH MCHC RDW Lymph % (Auto) Glynn % (Auto) Lymph # Glynn # Seg Neutrophils % Seg Neutrophils # PT INR APTT POC ABG pH 7.305 L POC ABG pCO2 62.6 H POC ABG pO2 ABG pO2 ABG HCO3 ABG O2 Saturation ABG Base Excess ABG Hemoglobin Oxyhemoglobin Sodium Potassium Chloride Carbon Dioxide BUN Creatinine Glucose POC Glucose 147 H 121 H Uric Acid Calcium Phosphorus Magnesium AST ALT Total Creatine Kinase CK-MB (CK-2) Troponin T NT-Pro-B Natriuret Pep Total Protein Albumin Triglycerides HDL Cholesterol Urine WBC (Auto) Urine Creatinine Urine Total Protein 05/10/19 05/10/19 05/10/19 05:00 05:00 05:50 WBC RBC Hgb 10.3 L Hct 33.7 L MCV MCH 27 L MCHC 31 L RDW 17.0 H Lymph % (Auto) Glynn % (Auto) Lymph # Glynn # Seg Neutrophils % Seg Neutrophils # PT INR APTT POC ABG pH POC ABG pCO2 POC ABG pO2 ABG pO2 ABG HCO3 ABG O2 Saturation ABG Base Excess ABG Hemoglobin Oxyhemoglobin Sodium 147 H Potassium Chloride Carbon Dioxide BUN 70 H Creatinine 2.6 H Glucose 155 H POC Glucose 158 H Uric Acid Calcium 8.2 L Phosphorus Magnesium AST ALT Total Creatine Kinase CK-MB (CK-2) Troponin T NT-Pro-B Natriuret Pep Total Protein 6.1 L Albumin 2.5 L Triglycerides HDL Cholesterol Urine WBC (Auto) Urine Creatinine Urine Total Protein 05/10/19 05/11/19 13:14 07:26 WBC RBC Hgb Hct MCV MCH MCHC RDW Lymph % (Auto) Glynn % (Auto) Lymph # Glynn # Seg Neutrophils % Seg Neutrophils # PT INR APTT POC ABG pH POC ABG pCO2 POC ABG pO2 ABG pO2 ABG HCO3 ABG O2 Saturation ABG Base Excess ABG Hemoglobin Oxyhemoglobin Sodium 147 H Potassium Chloride 107.2 H Carbon Dioxide BUN 67 H Creatinine 2.6 H Glucose 121 H POC Glucose 159 H Uric Acid Calcium Phosphorus Magnesium AST ALT Total Creatine Kinase CK-MB (CK-2) Troponin T NT-Pro-B Natriuret Pep Total Protein Albumin Triglycerides HDL Cholesterol Urine WBC (Auto) Urine Creatinine Urine Total Protein
--- NOTE | 2019-05-11 12:44 | Progress Note ---
Assessment and Plan Cultures: Blood cultures: no growth thus far Sputum culture: no growth thus far urine culture: no growth resp culture: no growth A/P: 34-year-old male with obesity admitted with: #Fever, SIRS: Patient was afebrile for the first 2 days of hospitalization, then he developed a fever of 101.2F. ?aspiration related. Apparently was using CPAP. Now febrile again, ?UTI. UA showed pyuria, had indwelling Berkowitz which was removed. Urine culture with no growth. #Acute hypoxic hypercapneic respiratory failure, possibly obesity hypoventilation syndrome: on the vent. Pulmonary managing. #Morbid obesity #CARLA: creatinine elevated. dose abx accordingly. #Elevated LFTs: RUQ US showed fatty liver, small GB sludge. Improving. #Acute encephalopathy with ?seizure activity: persistent fevers. Agree with possible meningitis coverage Recs: Fevers better. continue empiric meningitis coverage with Ceftriaxone, Vancomycin I suspect initial non-response to abx may have been due to inadequate dosing in this patient with morbid obesity When feasible LP and possible MRI brain (though may be limited due to patient's weight) Added metronidazole due to fevers and concern for previous aspiration Nancy Bearden MD [facility] ([facility] M: [phone] O: [phone] F: [phone] Subjective Date of service: 05/11/19 Principal diagnosis: HF; acute hypoxemic resp failure, SIRS, CARLA Interval history: Febrile to 100.4, normal WBC Objective - Exam Narrative Exam: Constitutional: sedated, intubated. Morbid obesity Head, Ears, Nose: Normocephalic, atraumatic. External ears, nose normal Eyes: Conjunctivae/corneas clear. No icterus. No ptosis. Neck: intubated Oral: intubated Cardiovascular: S1, S2 normal. Respiratory: Good air entry, clear to auscultation bilaterally GI: Soft, non-tender; bowel sounds normal. No peritoneal signs Musculoskeletal: No pedal edema, no cyanosis. Skin: No rash or abscess Hem/Lymphatic: No palpable cervical or supraclavicular nodes. No lymphangitis Psych: no agitation Neurological: sedated, intubated, on vent - Constitutional Vitals: Vital Signs Temp Pulse Resp BP Pulse Ox 100.4 F H 93 H 19 113/49 97 05/11/19 08:00 05/11/19 12:00 05/11/19 12:00 05/11/19 12:00 05/11/19 12:00 Temperature -Last 24 Hours Temperature 100.4 F Temperature 100 F Temperature 98.8 F Temperature 98.6 F Temperature 99.7 F - Labs CBC & Chem 7: 05/10/19 05:00 05/11/19 07:26 Labs: Abnormal lab results 05/10/19 05/11/19 05/11/19 Range/Units 13:14 07:26 11:40 POC ABG pCO2 48.0 H (35-45) POC ABG pO2 58 L (80-105) Sodium 147 H (137-145) mmol/L Chloride 107.2 H (98-107) mmol/L BUN 67 H (9-20) mg/dL Creatinine 2.6 H (0.8-1.5) mg/dL Glucose 121 H (75-100) mg/dL POC Glucose 159 H (70-105)
[2019-05-11] MEDS: metroNIDAZOLE/NS 500 MG/100 ML 500 MG/100 ML BAG IV SCH ×2 (14:40→21:22)
[2019-05-11] MEDS: ACETAMINOPHEN 325 MG TAB PO PRN ×2 (15:52→19:46)
--- NOTE | 2019-05-11 17:23 | Progress Note ---
Assessment and Plan Assessment and plan: 34-year-old man who is morbidly obese with unknown medical problem was brought to the emergency room with complaints of shortness of breath and difficulty sleeping. History is per the chart, nurse reported that his saturation dropped to 28%, heart rate in the 50s, she checked on them, he was cyanotic and was subsequently intubated and recieved 2 rounds of epinephrine. Cardiac arrest. * Discussed with pulmonary, Some improvement in saturation to the 90% range. Remains on 70% FIO2 and 20 PEEP * Diuresis held due to renal function worsening, appears to be improving today * still with fever * per ID empiric meningitis coverage with Ceftriaxone, Vancomycin * Flagyl discontinued * Acyclovir also added, renally adjusted- now discontinued * When feasible LP and possible MRI brain (though may be limited due to patient's weight) Blood cultures: no growth thus far Sputum culture: no growth thus far urine culture: no growth s/p Cardiac arrest Resuscitated cardiology consulted, following Acute hypoxic and hypercapenic respiratory failure on vent >96hrs Status post intubation, continue sedation, consulted pulmonary And input noted "continue to wean FiO2 for sats >88% and or PaO2 of greater than 55. Do not wean PEEP until FiO2 is a 50% or lower. Permissive hypercapnea is ok as long as pH is not lower than 7.2" Oxygen demand increased due to hypoxia, Pulmoanry adjusting vent but better today Obesity Hypoventilation syndrome Sepsis- not present on admission -On abx, ID following. LP when able Acylovir stopped ?seizure activity -Meninigitis prophy -Neurology consult -EEG- read pending Acute CHF, new onset, Diurese with IV lasix held, monitor I/O, daily weights Cardiology following. Added beta-jenny, no TIM inhibitor secondary to renal insufficiency Hypertension malignant Start antihypertensive, monitor blood pressure IV hydralazine as needed for further control Acute kidney injury due to ATN begning to trend downwards Nephrology following and input noted. Berkowitz for strict I/Os Hyperkalemia-Resolved Passive congestive hepatic syndrome -LFT elevated but trending down -Noted Gallbladder sludge DVT prophylaxis with Lovenox Morbid obesity Full code status. Prognosis guarded No family present The high probability of a clinically significant, sudden or life threatening deterioration of the [cardiovascular, Pulmonary, renal, neurological] system(s) required my full and direct attention, intervention and personal management. The aggregate critical care time was [35] minutes. This time is in addition to time spent performing reported procedures but includes the following: [x] Data Review and interpretation [x] Patient assessment and monitoring of vital signs [x] Documentation [x] Medication orders and management History Interval history: Patient seen and examined, remains on full ventilatory support, FIO2 demand improving, no new fever or seizure. Family present today and updated on patients critical issues, all questions answered Hospitalist Physical - Physical exam Narrative exam: Gen: Not in acute distress, intubated, on fentanyl, no evidence of vent-patient dyschronny on vent, morbidly obese HEENT: Normocephalic, atraumatic, short and large neck circumference Neck: supple, no JVD Heart: S1 and S2 reg, no murmurs, rubs or gallop Lungs: Clear to auscultation bilaterally, no wheeze Abd: soft, NT, non distended, normal bowel sounds Ext:No edema, no cyanosis Neuro: Intubated, sedated - Constitutional Vitals: Temp Pulse Resp BP Pulse Ox 101.2 F H 104 H 20 129/62 93 05/11/19 15:45 05/11/19 17:00 05/11/19 17:00 05/11/19 17:00 05/11/19 17:00 General appearance: Present: no acute distress Results - Labs CBC & Chem 7: 05/10/19 05:00 05/11/19 07:26 Labs: Laboratory Last Values WBC 8.7 K/mm3 (4.5-11.0) 05/10/19 05:00 RBC 3.82 M/mm3 (3.65-5.03) 05/10/19 05:00 Hgb 10.3 gm/dl (11.8-15.2) L 05/10/19 05:00 Hct 33.7 % (35.5-45.6) L 05/10/19 05:00 MCV 88 fl (84-94) 05/10/19 05:00 MCH 27 pg (28-32) L 05/10/19 05:00 MCHC 31 % (32-34) L 05/10/19 05:00 RDW 17.0 % (13.2-15.2) H 05/10/19 05:00 Plt Count 217 K/mm3 (140-440) 05/10/19 05:00 Lymph % (Auto) 7.9 % (13.4-35.0) L 05/05/19 05:00 [place] % (Auto) 10.2 % (0.0-7.3) H 05/05/19 05:00 Eos % (Auto) 0.6 % (0.0-4.3) 05/05/19 05:00 Baso % (Auto) 0.5 % (0.0-1.8) 05/05/19 05:00 Lymph # 1.0 K/mm3 (1.2-5.4) L 05/05/19 05:00 [place] # 1.2 K/mm3 (0.0-0.8) H 05/05/19 05:00 Eos # 0.1 K/mm3 (0.0-0.4) 05/05/19 05:00 Baso # 0.1 K/mm3 (0.0-0.1) 05/05/19 05:00 Seg Neutrophils % 80.8 % (40.0-70.0) H 05/05/19 05:00 Seg Neutrophils # 9.7 K/mm3 (1.8-7.7) H 05/05/19 05:00 PT 15.4 Sec. (12.2-14.9) H 05/01/19 Unknown INR 1.23 (0.87-1.13) H 05/01/19 Unknown APTT 22.7 Sec. (24.2-36.6) L 05/01/19 Unknown POC ABG pH 7.401 (7.35-7.45) 05/11/19 11:40 ABG pH 7.403 pH Units (7.350-7.450) 05/02/19 16:05 POC ABG pCO2 48.0 (35-45) H 05/11/19 11:40 ABG pCO2 52.3 mm Hg 05/02/19 16:05 POC ABG pO2 58 (80-105) L 05/11/19 11:40 ABG pO2 66.6 mm Hg (80.0-90.0) L 05/02/19 16:05 POC ABG HCO3 29.8 (22-26 mml/L) 05/11/19 11:40 ABG HCO3 31.9 mmol/L (20.0-26.0) H 05/02/19 16:05 POC ABG Total CO2 31 (23-27mmol/L) 05/11/19 11:40 POC ABG O2 Sat 89 05/11/19 11:40 ABG O2 Saturation 92.5 % (95.0-99.0) L 05/02/19 16:05 ABG O2 Content 16.9 (0.0-44) 05/02/19 16:05 POC ABG Base Excess 5 ((-2) - (+3)mmol/L) 05/11/19 11:40 ABG Base Excess 5.8 mmol/L (-2.0-3.0) H 05/02/19 16:05 ABG Hemoglobin 13.3 gm/dl (14.0-18.0) L 05/02/19 16:05 ABG Carboxyhemoglobin 1.6 % (0.0-5.0) 05/02/19 16:05 ABG Methemoglobin 0.6 % (0.0-1.5) 05/02/19 16:05 Oxyhemoglobin 90.6 % (95.0-99.0) L 05/02/19 16:05 FiO2 50 % 05/11/19 11:40 Sodium 147 mmol/L (137-145) H 05/11/19 07:26 Potassium 3.7 mmol/L (3.6-5.0) 05/11/19 07:26 Chloride 107.2 mmol/L (98-107) H 05/11/19 07:26 Carbon Dioxide 29 mmol/L (22-30) 05/11/19 07:26 Anion Gap 15 mmol/L 05/11/19 07:26 BUN 67 mg/dL (9-20) H 05/11/19 07:26 Creatinine 2.6 mg/dL (0.8-1.5) H 05/11/19 07:26 Estimated GFR 35 ml/min 05/11/19 07:26 BUN/Creatinine Ratio 26 % 05/11/19 07:26 Glucose 121 mg/dL (75-100) H 05/11/19 07:26 POC Glucose 159 (70-105) H 05/10/19 13:14 Osmolality 327 Mosm/kg 05/07/19 13:45 Uric Acid 18.0 mg/dL (3.5-7.6) H 05/07/19 13:45 Calcium 8.7 mg/dL (8.4-10.2) 05/11/19 07:26 Phosphorus 4.90 mg/dL (2.5-4.5) H 05/02/19 00:06 Magnesium 2.30 mg/dL (1.7-2.3) 05/02/19 00:06 Total Bilirubin 0.20 mg/dL (0.1-1.2) 05/10/19 05:00 AST 34 units/L (5-40) 05/10/19 05:00 ALT 35 units/L (7-56) 05/10/19 05:00 Alkaline Phosphatase 45 units/L (35-129) 05/10/19 05:00 Total Creatine Kinase 131 units/L (55-170) 05/02/19 04:41 CK-MB (CK-2) 5.2 ng/mL (0.0-4.0) H 05/02/19 04:41 CK-MB (CK-2) Rel Index 3.9 (0-4) 05/02/19 04:41 Troponin T 0.067 ng/mL (0.00-0.029) H D 05/02/19 04:41 NT-Pro-B Natriuret Pep 6831 pg/mL (0-450) H 05/01/19 Unknown Total Protein 6.1 g/dL (6.3-8.2) L 05/10/19 05:00 Albumin 2.5 g/dL (3.9-5) L 05/10/19 05:00 Albumin/Globulin Ratio 0.7 % 05/10/19 05:00 Triglycerides 182 mg/dL (2-149) H 05/02/19 00:06 Cholesterol 173 mg/dL (50-199) 05/02/19 00:06 LDL Cholesterol Direct 126 mg/dL (50-130) 05/02/19 00:06 HDL Cholesterol 18 mg/dL (40-59) L 05/02/19 00:06 Cholesterol/HDL Ratio 9.61 % 05/02/19 00:06 Procalcitonin 0.54 ng/mL (<0.15) 05/03/19 11:52 Urine Color Yellow (Yellow) 05/03/19 10:55 Urine Turbidity Turbid (Clear) 05/03/19 10:55 Urine pH 5.0 (5.0-7.0) 05/03/19 10:55 Ur Specific [place] 1.014 (1.003-1.030) 05/03/19 10:55 Urine Protein <15 mg/dl mg/dL (Negative) 05/03/19 10:55 Urine Glucose (UA) Neg mg/dL (Negative) 05/03/19 10:55 Urine Ketones Neg mg/dL (Negative) 05/03/19 10:55 Urine Blood Lg (Negative) 05/03/19 10:55 Urine Nitrite Neg (Negative) 05/03/19 10:55 Urine Bilirubin Neg (Negative) 05/03/19 10:55 Urine Urobilinogen < 2.0 mg/dL (<2.0) 05/03/19 10:55 Ur Leukocyte Esterase Mod (Negative) 05/03/19 10:55 Urine WBC (Auto) 33.0 /HPF (0.0-6.0) H 05/03/19 10:55 Urine RBC (Auto) 8.0 /HPF (0.0-6.0) 05/03/19 10:55 Urine Bacteria (Auto) 1+ /HPF (Negative) 05/03/19 10:55 Uric Acid Crystals 3+ 05/03/19 10:55 Urine Mucus Few /HPF 05/03/19 10:55 Urine Creatinine 292.8 mg/dL (0.1-20.0) H 05/07/19 22:40 Urine Sodium 11 mmol/L 05/07/19 22:40 Urine Total Protein 269 mg/dL (5-11.8) H 05/07/19 22:40 Random Vancomycin 5.9 ug/mL (0-40.0) 05/10/19 09:15 Hepatitis A IgM Ab Non-reactive (NonReactive) 05/07/19 13:45 Hep Bs Antigen Non-reactive (Negative) 05/07/19 13:45 Hep B Core IgM Ab Non-reactive (NonReactive) 05/07/19 13:45 Hepatitis C Antibody Non-reactive (NonReactive) 05/07/19 13:45 Active Medications - Current Medications Current Medications: Generic Name Dose Route Start Last Admin Trade Name Freq PRN Reason Stop Dose Admin Acetaminophen 650 mg 05/01/19 22:46 05/11/19 15:52 Tylenol PO 650 mg Q4H PRN Administration Pain MILD(1-3)/Fever >100.5/FREEMAN Lipase/Protease/Amylase 1 each 05/10/19 11:23 Pancreaze 10,500 Unit FEEDTUBE PRN PRN For Clogged Feeding Tube Dextrose 50 gm 05/01/19 20:24 D50w (25gm) Vial IV Q30MIN PRN Hypoglycemia Protocol Enoxaparin Sodium 30 mg 05/05/19 10:00 05/11/19 10:04 Enoxaparin SUB-Q 30 mg QDAY VICKEY Administration Famotidine 20 mg 05/05/19 10:00 05/11/19 10:04 Pepcid PO 20 mg DAILY VICKEY Administration Hydrophilic Ointment 1 applic 05/01/19 21:14 Vaseline Lip Therapy TP Q2HR PRN Dry Lips Fentanyl Citrate 2,000 mcg in 100 mls @ 10.195 mls/hr 05/01/19 22:00 05/11/19 14:40 Fentanyl Drip Premix IV 2 mcg/kg/hr TITR VICKEY 20.39 mls/hr Administration Protocol 1 MCG/KG/HR Propofol 1,000 mg in 100 mls @ 7.011 mls/hr 05/03/19 04:00 05/11/19 15:52 Diprivan 10 Mg/Ml IV 20 mcg/kg/min TITR VICKEY 28.044 mls/hr Administration Protocol 5 MCG/KG/MIN Norepinephrine 4 mg in 250 mls @ 7.5 mls/hr 05/03/19 18:00 Levophed Drip 4 Mg/Ns 250 Ml IV TITR VICKEY Protocol 2 MCG/MIN Sodium Chloride 500 mls @ 10 mls/hr 05/06/19 15:00 Nacl 0.9% 500 Ml IV DIRECT VICKEY Ceftriaxone Sodium 2 gm in 100 mls @ 200 mls/hr 05/07/19 22:00 05/11/19 10:04 Rocephin/Ns 2 Gm/100 Ml IV 200 mls/hr Q12HR VICKEY Administration Protocol Levetiracetam 750 mg/ Dextrose 107.5 mls @ 400 mls/hr 05/09/19 22:00 05/11/19 10:03 IV 400 mls/hr Q12HR VICKEY Administration Metronidazole 500 mg in 100 mls @ 100 mls/hr 05/11/19 14:00 05/11/19 14:40 Flagyl 500 Mg/100 Ml IV 100 mls/hr Q8HR VICKEY Administration Protocol Lorazepam 2 mg 05/06/19 06:22 05/10/19 16:17 Ativan IV 2 mg Q4H PRN Administration Seizures/AGITATION Metoprolol Tartrate 25 mg 05/02/19 04:00 05/11/19 10:04 Metoprolol PO 25 mg BID VICKEY Administration Multi-Ingred Cream/Lotion/Oil/Oint 1 applic 05/01/19 21:14 Artificial Tears Ophth Oint OU Q4HR PRN Dry Eye(s) Ondansetron HCl 4 mg 05/01/19 22:46 Zofran IV Q8H PRN Nausea And Vomiting Simple Syrup 15 ml 05/10/19 11:23 Simple Syrup FEEDTUBE PRN PRN Hypoglycemia Simple Syrup 30 ml 05/10/19 11:23 Simple Syrup FEEDTUBE PRN PRN Hypoglycemia Sodium Bicarbonate 325 mg 05/10/19 11:23 Sodium Bicarbonate FEEDTUBE PRN PRN For Clogged Feeding Tube Sodium Chloride 10 ml 05/02/19 10:00 05/11/19 10:04 Sodium Chloride Flush Syringe 10 Ml IV 10 ml BID VICKEY Administration Sodium Chloride 10 ml 05/01/19 22:46 05/05/19 02:28 Sodium Chloride Flush Syringe 10 Ml IV 10 ml PRN PRN Administration LINE FLUSH Nutrition/Malnutrition Assess - Dietary Evaluation Nutrition/Malnutrition Findings: Nutrition Notes Start: 05/04/19 12:54 Freq: Status: Active Protocol: Document 05/10/19 12:37 LM (Rec: 05/10/19 12:42 LM [email or web address]) Nutrition Notes Initial or Follow up Brief Note Current Diagnosis Acute Kidney Injury,Sepsis, Respiratory Failure Current Diet Nepro 1.8 at 60ml/hr Labs/Tests Na 147 BUN 70 Cr 2.6 Pertinent Medications Reviewed Height 6 ft 4 in Weight 227.5 kg [place] Body Weight (kg) 91.81 BMI 61.0 Weight Status Morbidly Obese Subjective/Other Information MD consult to adjust TF. Na elevated, will increase flush. Nutrition Intervention Nutrition Support: Nepro 1.8 at 50 ml/hr flush 300 ml q4h for hypernatremia flush 200 ml q4hr once hypernatremia resolves Follow-Up By: 05/14/19 Additional Comments F/U for TF tolerance, Na lab
[2019-05-11 21:49] LABS: ANA Screen, IFA Negative (Negative)
[2019-05-12] MEDS: fentaNYL DRIP Premix 2,000 MCG/100 ML BAG IV SCH ×6 (01:12→22:24)
[2019-05-12] MEDS: metroNIDAZOLE/NS 500 MG/100 ML 500 MG/100 ML BAG IV SCH ×3 (05:28→22:26)
[2019-05-12 05:43] LABS: ABG Base Excess 2.7 mmol/L (-2.0-3.0); ABG Methemoglobin 0.5 % (0.0-1.5); ABG PCO2 69.9 mm Hg; ABG PH 7.264 pH Units (7.350-7.450); ABG PO2 66.8 mm Hg (80.0-90.0)
--- NOTE | 2019-05-12 06:28 | Progress Note ---
Subjective Date of service: 05/12/19 Principal diagnosis: HF; acute hypoxemic resp failure, SIRS, CARLA Interval history: Called to bedside@ 600 for tube exchange because of cuff leak and pt's O2% d ropped into the 80's. Pt sedated on the vent, bagged 100% o2, VSS. suction and attempted to tube exchanger without success. Morrill scope used to intubate pt with 8.0 ett. good visualization of cords. +et co2 detected, bbs, O2 >90%. VSS stable. tube secured by rt. ended at 615. Objective - Constitutional Vitals: Vital Signs - 12hr 05/11/19 05/11/19 05/11/19 18:30 18:45 19:00 Temperature Pulse Rate 106 H 104 H 102 H Pulse Rate [ From Monitor] Respiratory 22 20 18 Rate Blood Pressure 141/66 143/60 128/63 O2 Sat by Pulse 96 96 97 Oximetry 05/11/19 05/11/19 05/11/19 19:15 19:30 19:45 Temperature Pulse Rate 103 H 101 H 101 H Pulse Rate [ From Monitor] Respiratory 19 19 20 Rate Blood Pressure 142/63 137/60 130/55 O2 Sat by Pulse 96 97 96 Oximetry 05/11/19 05/11/19 05/11/19 20:00 20:15 20:17 Temperature Pulse Rate 99 H 97 H 97 H Pulse Rate [ 99 H From Monitor] Respiratory 19 21 19 Rate Blood Pressure 125/53 121/52 121/52 O2 Sat by Pulse 96 97 96 Oximetry 05/11/19 05/11/19 05/11/19 20:30 20:45 20:58 Temperature 100.8 F H Pulse Rate 96 H 95 H Pulse Rate [ From Monitor] Respiratory 20 19 Rate Blood Pressure 122/52 123/51 O2 Sat by Pulse 97 97 Oximetry 05/11/19 05/11/19 05/11/19 21:00 21:01 21:15 Temperature Pulse Rate 96 H 96 H 99 H Pulse Rate [ From Monitor] Respiratory 20 19 Rate Blood Pressure 117/54 117/54 131/62 O2 Sat by Pulse 97 97 96 Oximetry 05/11/19 05/11/19 05/11/19 21:22 21:30 21:45 Temperature Pulse Rate 100 H 99 H 99 H Pulse Rate [ From Monitor] Respiratory 20 19 Rate Blood Pressure 131/62 129/61 129/63 O2 Sat by Pulse 96 96 Oximetry 05/11/19 05/11/19 05/11/19 22:00 22:15 22:30 Temperature Pulse Rate 98 H 97 H 96 H Pulse Rate [ From Monitor] Respiratory 19 19 20 Rate Blood Pressure 127/62 127/58 123/58 O2 Sat by Pulse 97 97 97 Oximetry 05/11/19 05/11/19 05/11/19 22:45 23:00 23:15 Temperature Pulse Rate 96 H 94 H 95 H Pulse Rate [ From Monitor] Respiratory 19 19 20 Rate Blood Pressure 124/56 123/61 122/63 O2 Sat by Pulse 97 97 97 Oximetry 05/11/19 05/11/19 05/12/19 23:30 23:45 00:00 Temperature 100.4 F H Pulse Rate 91 H 93 H 92 H Pulse Rate [ 92 H From Monitor] Respiratory 17 21 19 Rate Blood Pressure 123/60 117/61 122/60 O2 Sat by Pulse 97 97 97 Oximetry 05/12/19 05/12/19 05/12/19 00:15 00:34 03:31 Temperature 99.9 F H Pulse Rate 91 H 94 H Pulse Rate [ From Monitor] Respiratory 19 Rate Blood Pressure 120/59 124/60 O2 Sat by Pulse 97 96 Oximetry 05/12/19 04:32 Temperature Pulse Rate 106 H Pulse Rate [ From Monitor] Respiratory Rate Blood Pressure 140/74 O2 Sat by Pulse 95 Oximetry - Labs CBC & Chem 7: 05/10/19 05:00 05/11/19 07:26 Labs: Abnormal lab results 05/11/19 05/11/19 05/11/19 Range/Units 07:26 11:40 18:13 ABG pH (7.350-7.450) pH Units POC ABG pCO2 48.0 H (35-45) POC ABG pO2 58 L (80-105) ABG pO2 (80.0-90.0) mm Hg ABG HCO3 (20.0-26.0) mmol/L ABG O2 Saturation (95.0-99.0) % ABG Hemoglobin (14.0-18.0) gm/dl Oxyhemoglobin (95.0-99.0) % Sodium 147 H (137-145) mmol/L Chloride 107.2 H (98-107) mmol/L BUN 67 H (9-20) mg/dL Creatinine 2.6 H (0.8-1.5) mg/dL Glucose 121 H (75-100) mg/dL POC Glucose 120 H (70-105) 05/11/19 05/12/19 Range/Units 23:46 04:40 ABG pH 7.264 L (7.350-7.450) pH Units POC ABG pCO2 (35-45) POC ABG pO2 (80-105) ABG pO2 66.8 L (80.0-90.0) mm Hg ABG HCO3 31.0 H (20.0-26.0) mmol/L ABG O2 Saturation 92.0 L (95.0-99.0) % ABG Hemoglobin 10.3 L (14.0-18.0) gm/dl Oxyhemoglobin 90.1 L (95.0-99.0) % Sodium (137-145) mmol/L Chloride (98-107) mmol/L BUN (9-20) mg/dL Creatinine (0.8-1.5) mg/dL Glucose (75-100) mg/dL POC Glucose 121 H (70-105)
[2019-05-12 06:34] LABS: Hematocrit 32.4 % (35.5-45.6); Hemoglobin 10.2 gm/dl (11.8-15.2); Mean Corpuscular HGB Conc 31 % (32-34); Mean Corpuscular Volume 88 fl (84-94); Platelet Count 233 K/mm3 (140-440); Red Cell Distribution Width 17.2 % (13.2-15.2)
--- NOTE | 2019-05-12 06:44 | XRay Report ---
CHEST 1 VIEW INDICATION / CLINICAL INFORMATION: Etube placement post-reintubation. COMPARISON: 05/10/2019 FINDINGS: SUPPORT DEVICES: NG tube is in place as well as PICC line. Endotracheal tube has been placed but the tip is in the right mainstem bronchus and needs withdrawn approximately 3 cm. HEART / MEDIASTINUM: No significant abnormality. LUNGS / PLEURA: Venous congestion and edema shows improvement with increasing aeration bilaterally. N o pneumothorax. ADDITIONAL FINDINGS: The lower lungs are not identified on this film. IMPRESSION: 1 Endotracheal tube low in position and needs partially withdrawn. Signer Name: Arsenio Banda MD Signed: 05/12/2019 6:39 AM Workstation Name: [id number]
[2019-05-12] MEDS: ENOXAPARIN 30 MG/0.3 ML INJ SUB-Q SCH (09:44)
[2019-05-12] MEDS: METOPROLOL TARTRATE 25 MG TAB PO SCH ×2 (09:44→22:28)
[2019-05-12] MEDS: FAMOTIDINE 20 MG TAB PO SCH ×2 (09:44→22:28)
[2019-05-12] MEDS: cefTRIAXone/NS 2 GM/100 ML 2 GM/100 ML BAG IV SCH ×2 (09:54→22:27)
[2019-05-12] MEDS ORDERED: FLUDROCORTISONE 0.1 MG TAB PO SCH (10:00)
[2019-05-12] MEDS: levETIRAcetam 750 MG in DEXTROSE 5% IN WATER 100 ML IV SCH ×2 (10:30→22:26)
--- NOTE | 2019-05-12 10:43 | Progress Note ---
Assessment and Plan Assessment and plan: 34-year-old man who is morbidly obese with unknown medical problem was brought to the emergency room with complaints of shortness of breath and difficulty sleeping. History is per the chart, nurse reported that his saturation dropped to 28%, heart rate in the 50s, she checked on them, he was cyanotic and was subsequently intubated and recieved 2 rounds of epinephrine. Cardiac arrest. * Discussed with pulmonary, Some improvement in saturation to the 90% range. Remains on 70% FIO2 and 20 PEEP * Diuresis held due to renal function worsening, appears to be improving today * still with fever * per ID empiric meningitis coverage with Ceftriaxone, Vancomycin * Flagyl discontinued * Acyclovir also added, renally adjusted- now discontinued * When feasible LP and possible MRI brain (though may be limited due to patient's weight) * 05/12/19- ETT exchanged due to hypoxia Blood cultures: no growth thus far Sputum culture: no growth thus far urine culture: no growth s/p Cardiac arrest Resuscitated cardiology consulted, following Acute hypoxic and hypercapenic respiratory failure on vent >96hrs Status post intubation, continue sedation, consulted pulmonary And input noted "continue to wean FiO2 for sats >88% and or PaO2 of greater than 55. Do not wean PEEP until FiO2 is a 50% or lower. Permissive hypercapnea is ok as long as pH is not lower than 7.2" Oxygen demand increased due to hypoxia, Pulmoanry adjusting vent but better today Obesity Hypoventilation syndrome Patient previously on [facility] Management at home but per discussion with family, was non complaint Sepsis- not present on admission -On abx, ID following. LP when able Acylovir stopped ?seizure activity -Meninigitis prophy -Neurology consult -EEG- read pending Acute CHF, new onset, Diurese with IV lasix held, monitor I/O, daily weights Cardiology following. Added beta-jenny, no TIM inhibitor secondary to renal insufficiency Hypertension malignant Start antihypertensive, monitor blood pressure IV hydralazine as needed for further control Acute kidney injury due to ATN begning to trend downwards Nephrology following and input noted. Berkowitz for strict I/Os Hyperkalemia-Resolved Passive congestive hepatic syndrome -LFT elevated but trending down -Noted Gallbladder sludge DVT prophylaxis with Lovenox Morbid obesity Full code status. Prognosis guarded Discussed with Mother and another family male member that came with the mom yesterday. All questions answered The high probability of a clinically significant, sudden or life threatening deterioration of the [cardiovascular, Pulmonary, renal, neurological] system(s) required my full and direct attention, intervention and personal management. The aggregate critical care time was [35] minutes. This time is in addition to time spent performing reported procedures but includes the following: [x] Data Review and interpretation [x] Patient assessment and monitoring of vital signs [x] Documentation [x] Medication orders and management History Interval history: Patient seen and examined, remains on full ventilatory support, patient decided early hours of this morning requiring exchange of endotracheal tube by anesthesiologist Hospitalist Physical - Physical exam Narrative exam: Gen: Not in acute distress, intubated, SEDATED no evidence of vent-patient dyschronny on vent, morbidly obese HEENT: Normocephalic, atraumatic, short and large neck circumference Neck: supple, no JVD Heart: S1 and S2 reg, no murmurs, rubs or gallop Lungs: Clear to auscultation bilaterally, no wheeze Abd: soft, NT, non distended, normal bowel sounds Ext:No edema, no cyanosis Neuro: Intubated, sedated - Constitutional Vitals: Temp Pulse Resp BP Pulse Ox 98.5 F 86 22 136/66 92 05/12/19 08:00 05/12/19 09:44 05/12/19 09:00 05/12/19 09:44 05/12/19 09:00 General appearance: Present: no acute distress Results - Labs CBC & Chem 7: 05/12/19 04:45 05/12/19 04:45 Labs: Laboratory Last Values WBC 10.0 K/mm3 (4.5-11.0) 05/12/19 04:45 RBC 3.70 M/mm3 (3.65-5.03) 05/12/19 04:45 Hgb 10.2 gm/dl (11.8-15.2) L 05/12/19 04:45 Hct 32.4 % (35.5-45.6) L 05/12/19 04:45 MCV 88 fl (84-94) 05/12/19 04:45 MCH 28 pg (28-32) 05/12/19 04:45 MCHC 31 % (32-34) L 05/12/19 04:45 RDW 17.2 % (13.2-15.2) H 05/12/19 04:45 Plt Count 233 K/mm3 (140-440) 05/12/19 04:45 Lymph % (Auto) 7.9 % (13.4-35.0) L 05/05/19 05:00 [place] % (Auto) 10.2 % (0.0-7.3) H 05/05/19 05:00 Eos % (Auto) 0.6 % (0.0-4.3) 05/05/19 05:00 Baso % (Auto) 0.5 % (0.0-1.8) 05/05/19 05:00 Lymph # 1.0 K/mm3 (1.2-5.4) L 05/05/19 05:00 [place] # 1.2 K/mm3 (0.0-0.8) H 05/05/19 05:00 Eos # 0.1 K/mm3 (0.0-0.4) 05/05/19 05:00 Baso # 0.1 K/mm3 (0.0-0.1) 05/05/19 05:00 Seg Neutrophils % 80.8 % (40.0-70.0) H 05/05/19 05:00 Seg Neutrophils # 9.7 K/mm3 (1.8-7.7) H 05/05/19 05:00 PT 15.4 Sec. (12.2-14.9) H 05/01/19 Unknown INR 1.23 (0.87-1.13) H 05/01/19 Unknown APTT 22.7 Sec. (24.2-36.6) L 05/01/19 Unknown POC ABG pH 7.401 (7.35-7.45) 05/11/19 11:40 ABG pH 7.264 pH Units (7.350-7.450) L 05/12/19 04:40 POC ABG pCO2 48.0 (35-45) H 05/11/19 11:40 ABG pCO2 69.9 mm Hg 05/12/19 04:40 POC ABG pO2 58 (80-105) L 05/11/19 11:40 ABG pO2 66.8 mm Hg (80.0-90.0) L 05/12/19 04:40 POC ABG HCO3 29.8 (22-26 mml/L) 05/11/19 11:40 ABG HCO3 31.0 mmol/L (20.0-26.0) H 05/12/19 04:40 POC ABG Total CO2 31 (23-27mmol/L) 05/11/19 11:40 POC ABG O2 Sat 89 05/11/19 11:40 ABG O2 Saturation 92.0 % (95.0-99.0) L 05/12/19 04:40 ABG O2 Content 13.1 (0.0-44) 05/12/19 04:40 POC ABG Base Excess 5 ((-2) - (+3)mmol/L) 05/11/19 11:40 ABG Base Excess 2.7 mmol/L (-2.0-3.0) 05/12/19 04:40 ABG Hemoglobin 10.3 gm/dl (14.0-18.0) L 05/12/19 04:40 ABG Carboxyhemoglobin 1.6 % (0.0-5.0) 05/12/19 04:40 ABG Methemoglobin 0.5 % (0.0-1.5) 05/12/19 04:40 Oxyhemoglobin 90.1 % (95.0-99.0) L 05/12/19 04:40 FiO2 50 % 05/12/19 04:40 Sodium 145 mmol/L (137-145) 05/12/19 04:45 Potassium 4.1 mmol/L (3.6-5.0) 05/12/19 04:45 Chloride 105.1 mmol/L (98-107) 05/12/19 04:45 Carbon Dioxide 28 mmol/L (22-30) 05/12/19 04:45 Anion Gap 16 mmol/L 05/12/19 04:45 BUN 63 mg/dL (9-20) H 05/12/19 04:45 Creatinine 2.4 mg/dL (0.8-1.5) H 05/12/19 04:45 Estimated GFR 38 ml/min 05/12/19 04:45 BUN/Creatinine Ratio 26 % 05/12/19 04:45 Glucose 110 mg/dL (75-100) H 05/12/19 04:45 POC Glucose 102 (70-105) 05/12/19 05:54 Osmolality 327 Mosm/kg 05/07/19 13:45 Uric Acid 18.0 mg/dL (3.5-7.6) H 05/07/19 13:45 Calcium 9.0 mg/dL (8.4-10.2) 05/12/19 04:45 Phosphorus 4.90 mg/dL (2.5-4.5) H 05/02/19 00:06 Magnesium 2.30 mg/dL (1.7-2.3) 05/02/19 00:06 Total Bilirubin 0.20 mg/dL (0.1-1.2) 05/10/19 05:00 AST 34 units/L (5-40) 05/10/19 05:00 ALT 35 units/L (7-56) 05/10/19 05:00 Alkaline Phosphatase 45 units/L (35-129) 05/10/19 05:00 Total Creatine Kinase 131 units/L (55-170) 05/02/19 04:41 CK-MB (CK-2) 5.2 ng/mL (0.0-4.0) H 05/02/19 04:41 CK-MB (CK-2) Rel Index 3.9 (0-4) 05/02/19 04:41 Troponin T 0.067 ng/mL (0.00-0.029) H D 05/02/19 04:41 NT-Pro-B Natriuret Pep 6831 pg/mL (0-450) H 05/01/19 Unknown Total Protein 6.1 g/dL (6.3-8.2) L 05/10/19 05:00 Albumin 2.5 g/dL (3.9-5) L 05/10/19 05:00 Albumin/Globulin Ratio 0.7 % 05/10/19 05:00 Triglycerides 182 mg/dL (2-149) H 05/02/19 00:06 Cholesterol 173 mg/dL (50-199) 05/02/19 00:06 LDL Cholesterol Direct 126 mg/dL (50-130) 05/02/19 00:06 HDL Cholesterol 18 mg/dL (40-59) L 05/02/19 00:06 Cholesterol/HDL Ratio 9.61 % 05/02/19 00:06 Procalcitonin 0.54 ng/mL (<0.15) 05/03/19 11:52 Urine Color Yellow (Yellow) 05/03/19 10:55 Urine Turbidity Turbid (Clear) 05/03/19 10:55 Urine pH 5.0 (5.0-7.0) 05/03/19 10:55 Ur Specific [place] 1.014 (1.003-1.030) 05/03/19 10:55 Urine Protein <15 mg/dl mg/dL (Negative) 05/03/19 10:55 Urine Glucose (UA) Neg mg/dL (Negative) 05/03/19 10:55 Urine Ketones Neg mg/dL (Negative) 05/03/19 10:55 Urine Blood Lg (Negative) 05/03/19 10:55 Urine Nitrite Neg (Negative) 05/03/19 10:55 Urine Bilirubin Neg (Negative) 05/03/19 10:55 Urine Urobilinogen < 2.0 mg/dL (<2.0) 05/03/19 10:55 Ur Leukocyte Esterase Mod (Negative) 05/03/19 10:55 Urine WBC (Auto) 33.0 /HPF (0.0-6.0) H 05/03/19 10:55 Urine RBC (Auto) 8.0 /HPF (0.0-6.0) 05/03/19 10:55 Urine Bacteria (Auto) 1+ /HPF (Negative) 05/03/19 10:55 Uric Acid Crystals 3+ 05/03/19 10:55 Urine Mucus Few /HPF 05/03/19 10:55 Urine Creatinine 292.8 mg/dL (0.1-20.0) H 05/07/19 22:40 Urine Sodium 11 mmol/L 05/07/19 22:40 Urine Total Protein 269 mg/dL (5-11.8) H 05/07/19 22:40 Random Vancomycin 5.8 ug/mL (0-40.0) 05/12/19 08:15 AMNA Screen Negative (Negative) 05/07/19 13:45 Hepatitis A IgM Ab Non-reactive (NonReactive) 05/07/19 13:45 Hep Bs Antigen Non-reactive (Negative) 05/07/19 13:45 Hep B Core IgM Ab Non-reactive (NonReactive) 05/07/19 13:45 Hepatitis C Antibody Non-reactive (NonReactive) 05/07/19 13:45 Active Medications - Current Medications Current Medications: Generic Name Dose Route Start Last Admin Trade Name Freq PRN Reason Stop Dose Admin Acetaminophen 650 mg 05/01/19 22:46 05/11/19 19:46 Tylenol PO 650 mg Q4H PRN Administration Pain MILD(1-3)/Fever >100.5/FREEMAN Lipase/Protease/Amylase 1 each 05/10/19 11:[address] 10,500 Unit FEEDTUBE PRN PRN For Clogged Feeding Tube Dextrose 50 gm 05/01/19 20:24 D50w (25gm) Vial IV Q30MIN PRN Hypoglycemia Protocol Enoxaparin Sodium 30 mg 05/05/19 10:00 05/12/19 09:44 Enoxaparin SUB-Q 30 mg QDAY VICKEY Administration Famotidine 20 mg 05/05/19 10:00 05/12/19 09:44 Pepcid PO 20 mg DAILY VICKEY Administration Hydrophilic Ointment 1 applic 05/01/19 21:14 Vaseline Lip Therapy TP Q2HR PRN Dry Lips Fentanyl Citrate 2,000 mcg in 100 mls @ 10.195 mls/hr 05/01/19 22:00 05/12/19 09:47 Fentanyl Drip Premix IV 2 mcg/kg/hr TITR VICKEY 20.39 mls/hr Administration Protocol 1 MCG/KG/HR Propofol 1,000 mg in 100 mls @ 7.011 mls/hr 05/03/19 04:00 05/12/19 08:20 Diprivan 10 Mg/Ml IV 20 mcg/kg/min TITR VICKEY 28.044 mls/hr Administration Protocol 5 MCG/KG/MIN Norepinephrine 4 mg in 250 mls @ 7.5 mls/hr 05/03/19 18:00 Levophed Drip 4 Mg/Ns 250 Ml IV TITR VICKEY Protocol 2 MCG/MIN Sodium Chloride 500 mls @ 10 mls/hr 05/06/19 15:00 Nacl 0.9% 500 Ml IV DIRECT VICKEY Ceftriaxone Sodium 2 gm in 100 mls @ 200 mls/hr 05/07/19 22:00 05/12/19 09:54 Rocephin/Ns 2 Gm/100 Ml IV 200 mls/hr Q12HR VICKEY Administration Protocol Levetiracetam 750 mg/ Dextrose 107.5 mls @ 400 mls/hr 05/09/19 22:00 05/12/19 10:30 IV 05/12/19 23:59 400 mls/hr Q12HR VICKEY Administration Metronidazole 500 mg in 100 mls @ 100 mls/hr 05/11/19 14:00 05/12/19 05:28 Flagyl 500 Mg/100 Ml IV 100 mls/hr Q8HR VICKEY Administration Protocol Vancomycin HCl 2,000 mg/ 540 mls @ 250 mls/hr 05/12/19 11:00 Sodium Chloride IV Q24HR VICKEY Levetiracetam 750 mg 05/13/19 10:00 Keppra PO BID VICKEY Lorazepam 2 mg 05/06/19 06:22 05/10/19 16:17 Ativan IV 2 mg Q4H PRN Administration Seizures/AGITATION Metoprolol Tartrate 25 mg 05/02/19 04:00 05/12/19 09:44 Metoprolol PO 25 mg BID VICKEY Administration Multi-Ingred Cream/Lotion/Oil/Oint 1 applic 05/01/19 21:14 Artificial Tears Ophth Oint OU Q4HR PRN Dry Eye(s) Ondansetron HCl 4 mg 05/01/19 22:46 Zofran IV Q8H PRN Nausea And Vomiting Simple Syrup 15 ml 05/10/19 11:23 Simple Syrup FEEDTUBE PRN PRN Hypoglycemia Simple Syrup 30 ml 05/10/19 11:23 Simple Syrup FEEDTUBE PRN PRN Hypoglycemia Sodium Bicarbonate 325 mg 05/10/19 11:23 Sodium Bicarbonate FEEDTUBE PRN PRN For Clogged Feeding Tube Sodium Chloride 10 ml 05/02/19 10:00 05/12/19 10:07 Sodium Chloride Flush Syringe 10 Ml IV 10 ml BID VICKEY Administration Sodium Chloride 10 ml 05/01/19 22:46 05/05/19 02:28 Sodium Chloride Flush Syringe 10 Ml IV 10 ml PRN PRN Administration LINE FLUSH Nutrition/Malnutrition Assess - Dietary Evaluation Nutrition/Malnutrition Findings: Nutrition Notes Start: 05/04/19 12:54 Freq: Status: Active Protocol: Document 05/10/19 12:37 LM (Rec: 05/10/19 12:42 LM [email or web address]) Nutrition Notes Initial or Follow up Brief Note Current Diagnosis Acute Kidney Injury,Sepsis, Respiratory Failure Current Diet Nepro 1.8 at 60ml/hr Labs/Tests Na 147 BUN 70 Cr 2.6 Pertinent Medications Reviewed Height 6 ft 4 in Weight 227.5 kg [place] Body Weight (kg) 91.81 BMI 61.0 Weight Status Morbidly Obese Subjective/Other Information MD consult to adjust TF. Na elevated, will increase flush. Nutrition Intervention Nutrition Support: Nepro 1.8 at 50 ml/hr flush 300 ml q4h for hypernatremia flush 200 ml q4hr once hypernatremia resolves Follow-Up By: 05/14/19 Additional Comments F/U for TF tolerance, Na lab
--- NOTE | 2019-05-12 11:23 | Progress Note ---
Assessment and Plan 34 y/o male with acute hypoxic, hypercapnic respiratory failure currently ventilated and sedated, now with persistent fevers and seizure. 1. Neuro: EEG shows no seizures. 2. Pulm: continue to wean FiO2 for sats >88% and or PaO2 of greater than 55. Do not wean PEEP until FiO2 is at 50% or lower. Permissive hypercapnea is ok as long as pH is not lower than 7.2 3. Renal: Cr improved to less than 3.0, making urine. Hold diuresis. Stop D5 as patient is tolerating tube feeds 4. Fever: recurrent now. Cultures pending from yesterday. has PRN tylenol. Await further ID recs. 5. Day number of 11 of intubation. CCT 31 minutes. Subjective Date of service: 05/12/19 Principal diagnosis: HF; acute hypoxemic resp failure, SIRS, CARLA Interval history: Tube changed out this am by anesthesia. EEG done yesterday. no family at bedside. Down to 50% and PEEP remains at 20 Objective Vital Signs - 12hr 05/11/19 05/11/19 05/12/19 23:30 23:45 00:00 Temperature 100.4 F H Pulse Rate 91 H 93 H 92 H Pulse Rate [ 92 H From Monitor] Respiratory 17 21 19 Rate Blood Pressure 123/60 117/61 122/60 O2 Sat by Pulse 97 97 97 Oximetry 05/12/19 05/12/19 05/12/19 00:15 00:30 00:34 Temperature Pulse Rate 91 H 93 H 94 H Pulse Rate [ From Monitor] Respiratory 19 18 Rate Blood Pressure 120/59 124/60 124/60 O2 Sat by Pulse 97 96 96 Oximetry 05/12/19 05/12/19 05/12/19 00:45 01:00 01:15 Temperature Pulse Rate 97 H 95 H 95 H Pulse Rate [ From Monitor] Respiratory 20 20 20 Rate Blood Pressure 125/63 125/63 119/63 O2 Sat by Pulse 91 95 93 Oximetry 05/12/19 05/12/19 05/12/19 01:30 01:45 02:00 Temperature Pulse Rate 94 H 96 H 94 H Pulse Rate [ From Monitor] Respiratory 19 20 20 Rate Blood Pressure 124/61 126/63 122/59 O2 Sat by Pulse 93 91 89 Oximetry 05/12/19 05/12/19 05/12/19 02:15 02:30 02:45 Temperature Pulse Rate 95 H 92 H 93 H Pulse Rate [ From Monitor] Respiratory 20 20 20 Rate Blood Pressure 125/60 119/64 120/62 O2 Sat by Pulse 90 92 92 Oximetry 05/12/19 05/12/19 05/12/19 03:00 03:15 03:30 Temperature Pulse Rate 94 H 92 H 93 H Pulse Rate [ From Monitor] Respiratory 20 20 20 Rate Blood Pressure 122/61 117/55 116/56 O2 Sat by Pulse 92 93 94 Oximetry 05/12/19 05/12/19 05/12/19 03:31 03:45 04:00 Temperature 99.9 F H Pulse Rate 92 H 99 H Pulse Rate [ 99 H From Monitor] Respiratory 19 21 Rate Blood Pressure 122/62 116/56 O2 Sat by Pulse 94 95 Oximetry 05/12/19 05/12/19 05/12/19 04:16 04:30 04:32 Temperature Pulse Rate 106 H 103 H 106 H Pulse Rate [ From Monitor] Respiratory 13 20 Rate Blood Pressure 116/56 140/74 140/74 O2 Sat by Pulse 91 90 95 Oximetry 05/12/19 05/12/19 05/12/19 04:45 05:00 05:15 Temperature Pulse Rate 104 H 103 H 112 H Pulse Rate [ From Monitor] Respiratory 20 22 13 Rate Blood Pressure 143/73 139/69 155/97 O2 Sat by Pulse 93 88 92 Oximetry 05/12/19 05/12/19 05/12/19 05:30 05:45 06:00 Temperature Pulse Rate 108 H 106 H 105 H Pulse Rate [ From Monitor] Respiratory 18 16 12 Rate Blood Pressure 155/97 162/83 159/93 O2 Sat by Pulse 91 Oximetry 05/12/19 05/12/19 05/12/19 06:16 06:30 06:45 Temperature Pulse Rate 97 H 91 H 94 H Pulse Rate [ From Monitor] Respiratory 17 14 22 Rate Blood Pressure 126/46 126/46 152/76 O2 Sat by Pulse 87 86 83 L Oximetry 05/12/19 05/12/19 05/12/19 07:00 07:15 07:30 Temperature Pulse Rate 95 H 96 H 94 H Pulse Rate [ From Monitor] Respiratory 21 21 19 Rate Blood Pressure 140/71 134/82 136/82 O2 Sat by Pulse 85 91 92 Oximetry 05/12/19 05/12/19 05/12/19 07:45 08:00 08:15 Temperature 98.5 F Pulse Rate 93 H 92 H 94 H Pulse Rate [ 95 H From Monitor] Respiratory 18 26 H 20 Rate Blood Pressure 138/75 143/70 146/73 O2 Sat by Pulse 93 93 92 Oximetry 05/12/19 05/12/19 05/12/19 08:30 08:45 09:00 Temperature Pulse Rate 96 H 91 H 89 Pulse Rate [ From Monitor] Respiratory 22 21 22 Rate Blood Pressure 140/71 138/67 135/63 O2 Sat by Pulse 90 91 92 Oximetry 05/12/19 05/12/19 05/12/19 09:15 09:30 09:44 Temperature Pulse Rate 89 89 86 Pulse Rate [ From Monitor] Respiratory 19 19 Rate Blood Pressure 135/63 136/66 136/66 O2 Sat by Pulse 92 91 Oximetry 05/12/19 05/12/19 05/12/19 09:45 10:00 10:15 Temperature Pulse Rate 86 86 84 Pulse Rate [ From Monitor] Respiratory 24 16 24 Rate Blood Pressure 131/66 128/62 126/60 O2 Sat by Pulse 93 95 94 Oximetry 05/12/19 05/12/19 05/12/19 10:30 10:45 11:00 Temperature Pulse Rate 81 79 80 Pulse Rate [ From Monitor] Respiratory 18 17 20 Rate Blood Pressure 121/54 125/60 122/59 O2 Sat by Pulse 95 94 94 Oximetry Constitutional: other (morbidly obese male, sedated on vent) Eyes: non-icteric Neck: other (extremely large in circumference) Effort: normal Ascultation: Bilateral: diminished breath sounds (secondary to body habitus) Cardiovascular: regular rate and rhythm (no mrg) Gastrointestinal: normoactive bowel sounds, other (obese) Integumentary: other (swelling of L hand due to blood pressure cuff and restraints, with non-infected appearing blister on thumb) Extremities: other (1+ generalized edema) Neurologic: unable to assess Psychiatric: other (unable to assess) CBC and BMP: 05/12/19 04:45 05/12/19 04:45 ABG, PT/INR, D-dimer: ABG POC ABG pH 7.401 (7.35-7.45) 05/11/19 11:40 ABG pH 7.264 pH Units (7.350-7.450) L 05/12/19 04:40 POC ABG pCO2 48.0 (35-45) H 05/11/19 11:40 ABG pCO2 69.9 mm Hg 05/12/19 04:40 POC ABG pO2 58 (80-105) L 05/11/19 11:40 ABG pO2 66.8 mm Hg (80.0-90.0) L 05/12/19 04:40 POC ABG HCO3 29.8 (22-26 mml/L) 05/11/19 11:40 POC ABG Total CO2 31 (23-27mmol/L) 05/11/19 11:40 POC ABG O2 Sat 89 05/11/19 11:40 ABG O2 Saturation 92.0 % (95.0-99.0) L 05/12/19 04:40 PT/INR, D-dimer PT 15.4 Sec. (12.2-14.9) H 05/01/19 Unknown INR 1.23 (0.87-1.13) H 05/01/19 Unknown Abnormal lab findings: Abnormal Labs 05/01/19 05/01/19 05/01/19 17:50 19:26 22:36 WBC RBC Hgb Hct MCV MCH MCHC RDW Lymph % (Auto) [place] % (Auto) Lymph # [place] # Seg Neutrophils % Seg Neutrophils # PT INR APTT POC ABG pH 7.272 L 7.331 L ABG pH POC ABG pCO2 52.8 H POC ABG pO2 ABG pO2 ABG HCO3 ABG O2 Saturation ABG Base Excess ABG Hemoglobin Oxyhemoglobin Sodium 136 L Potassium 6.5 H* Chloride 97.2 L Carbon Dioxide BUN 60 H Creatinine Glucose 113 H POC Glucose Uric Acid Calcium Phosphorus Magnesium 2.40 H AST 139 H ALT 154 H Total Creatine Kinase CK-MB (CK-2) Troponin T NT-Pro-B Natriuret Pep Total Protein Albumin 3.8 L Triglycerides HDL Cholesterol Urine WBC (Auto) Urine Creatinine Urine Total Protein 05/01/19 05/01/19 05/01/19 Unknown Unknown Unknown WBC 16.1 H RBC Hgb Hct MCV MCH MCHC RDW 17.2 H Lymph % (Auto) [place] % (Auto) 9.6 H Lymph # [place] # 1.5 H Seg Neutrophils % 73.0 H Seg Neutrophils # 11.7 H PT 15.4 H INR 1.23 H APTT 22.7 L POC ABG pH ABG pH POC ABG pCO2 POC ABG pO2 ABG pO2 ABG HCO3 ABG O2 Saturation ABG Base Excess ABG Hemoglobin Oxyhemoglobin Sodium Potassium Chloride Carbon Dioxide BUN Creatinine Glucose POC Glucose Uric Acid Calcium Phosphorus Magnesium AST ALT Total Creatine Kinase CK-MB (CK-2) Troponin T NT-Pro-B Natriuret Pep 6831 H Total Protein Albumin Triglycerides HDL Cholesterol Urine WBC (Auto) Urine Creatinine Urine Total Protein 05/01/19 05/02/19 05/02/19 Unknown 00:06 00:06 WBC RBC Hgb Hct MCV MCH MCHC RDW Lymph % (Auto) [place] % (Auto) Lymph # [place] # Seg Neutrophils % Seg Neutrophils # PT INR APTT POC ABG pH ABG pH POC ABG pCO2 POC ABG pO2 ABG pO2 ABG HCO3 ABG O2 Saturation ABG Base Excess ABG Hemoglobin Oxyhemoglobin Sodium Potassium Chloride Carbon Dioxide BUN Creatinine Glucose POC Glucose Uric Acid Calcium Phosphorus 4.90 H Magnesium AST ALT Total Creatine Kinase 226 H CK-MB (CK-2) 5.7 H Troponin T 0.044 H NT-Pro-B Natriuret Pep Total Protein Albumin Triglycerides 182 H HDL Cholesterol 18 L Urine WBC (Auto) Urine Creatinine Urine Total Protein 05/02/19 05/02/19 05/02/19 02:08 04:40 04:41 WBC 17.6 H RBC Hgb Hct MCV MCH 27 L MCHC RDW 17.4 H Lymph % (Auto) 10.2 L [place] % (Auto) 11.0 H Lymph # [place] # 1.9 H Seg Neutrophils % 78.0 H Seg Neutrophils # 13.8 H PT INR APTT POC ABG pH ABG pH POC ABG pCO2 46.8 H POC ABG pO2 63 L ABG pO2 ABG HCO3 ABG O2 Saturation ABG Base Excess ABG Hemoglobin Oxyhemoglobin Sodium Potassium Chloride 96.3 L Carbon Dioxide BUN 63 H Creatinine 1.7 H Glucose POC Glucose Uric Acid Calcium Phosphorus Magnesium AST ALT Total Creatine Kinase CK-MB (CK-2) Troponin T NT-Pro-B Natriuret Pep Total Protein Albumin Triglycerides HDL Cholesterol Urine WBC (Auto) Urine Creatinine Urine Total Protein 05/02/19 05/02/19 05/02/19 04:41 04:41 16:05 WBC RBC Hgb Hct MCV MCH MCHC RDW Lymph % (Auto) [place] % (Auto) Lymph # [place] # Seg Neutrophils % Seg Neutrophils # PT INR APTT POC ABG pH ABG pH POC ABG pCO2 POC ABG pO2 ABG pO2 66.6 L ABG HCO3 31.9 H ABG O2 Saturation 92.5 L ABG Base Excess 5.8 H ABG Hemoglobin 13.3 L Oxyhemoglobin 90.6 L Sodium Potassium Chloride 97.2 L Carbon Dioxide BUN 61 H Creatinine 1.8 H Glucose POC Glucose Uric Acid Calcium Phosphorus Magnesium AST ALT Total Creatine Kinase CK-MB (CK-2) 5.2 H Troponin T 0.067 H D NT-Pro-B Natriuret Pep Total Protein Albumin Triglycerides HDL Cholesterol Urine WBC (Auto) Urine Creatinine Urine Total Protein 05/02/19 05/03/19 05/03/19 20:39 04:35 05:05 WBC 11.8 H RBC Hgb Hct MCV MCH 27 L MCHC 31 L RDW 17.2 H Lymph % (Auto) [place] % (Auto) Lymph # [place] # Seg Neutrophils % Seg Neutrophils # PT INR APTT POC ABG pH ABG pH POC ABG pCO2 53.6 H 54.0 H POC ABG pO2 55 L 63 L ABG pO2 ABG HCO3 ABG O2 Saturation ABG Base Excess ABG Hemoglobin Oxyhemoglobin Sodium Potassium Chloride Carbon Dioxide BUN Creatinine Glucose POC Glucose Uric Acid Calcium Phosphorus Magnesium AST ALT Total Creatine Kinase CK-MB (CK-2) Troponin T NT-Pro-B Natriuret Pep Total Protein Albumin Triglycerides HDL Cholesterol Urine WBC (Auto) Urine Creatinine Urine Total Protein 05/03/19 05/03/19 05/03/19 05:05 10:55 16:48 WBC RBC Hgb Hct MCV MCH MCHC RDW Lymph % (Auto) [place] % (Auto) Lymph # [place] # Seg Neutrophils % Seg Neutrophils # PT INR APTT POC ABG pH 7.604 H ABG pH POC ABG pCO2 POC ABG pO2 58 L ABG pO2 ABG HCO3 ABG O2 Saturation ABG Base Excess ABG Hemoglobin Oxyhemoglobin Sodium Potassium Chloride Carbon Dioxide BUN 52 H Creatinine 1.9 H Glucose 103 H POC Glucose Uric Acid Calcium Phosphorus Magnesium AST ALT Total Creatine Kinase CK-MB (CK-2) Troponin T NT-Pro-B Natriuret Pep Total Protein Albumin Triglycerides HDL Cholesterol Urine WBC (Auto) 33.0 H Urine Creatinine Urine Total Protein 05/04/19 05/04/19 05/04/19 04:49 06:50 06:50 WBC 16.0 H RBC Hgb Hct MCV MCH 27 L MCHC 31 L RDW 17.8 H Lymph % (Auto) [place] % (Auto) Lymph # [place] # Seg Neutrophils % Seg Neutrophils # PT INR APTT POC ABG pH 7.273 L ABG pH POC ABG pCO2 POC ABG pO2 ABG pO2 ABG HCO3 ABG O2 Saturation ABG Base Excess ABG Hemoglobin Oxyhemoglobin Sodium 148 H Potassium 5.5 H Chloride Carbon Dioxide BUN 53 H Creatinine 3.3 H D Glucose 106 H POC Glucose Uric Acid Calcium 8.3 L Phosphorus Magnesium AST ALT Total Creatine Kinase CK-MB (CK-2) Troponin T NT-Pro-B Natriuret Pep Total Protein Albumin Triglycerides HDL Cholesterol Urine WBC (Auto) Urine Creatinine Urine Total Protein 05/05/19 05/05/19 05/05/19 00:05 04:30 05:00 WBC RBC Hgb Hct MCV MCH MCHC RDW Lymph % (Auto) [place] % (Auto) Lymph # [place] # Seg Neutrophils % Seg Neutrophils # PT INR APTT POC ABG pH 7.225 L ABG pH POC ABG pCO2 > 70 H POC ABG pO2 ABG pO2 ABG HCO3 ABG O2 Saturation ABG Base Excess ABG Hemoglobin Oxyhemoglobin Sodium 151 H Potassium 5.1 H Chloride Carbon Dioxide BUN 64 H Creatinine 3.5 H Glucose 117 H POC Glucose 141 H Uric Acid Calcium 7.5 L Phosphorus Magnesium AST 93 H ALT 65 H Total Creatine Kinase CK-MB (CK-2) Troponin T NT-Pro-B Natriuret Pep Total Protein Albumin 2.9 L Triglycerides HDL Cholesterol Urine WBC (Auto) Urine Creatinine Urine Total Protein 05/05/19 05/05/19 05/05/19 05:00 12:02 17:46 WBC 12.0 H RBC Hgb 11.3 L Hct MCV MCH 27 L MCHC 30 L RDW 18.4 H Lymph % (Auto) 7.9 L [place] % (Auto) 10.2 H Lymph # 1.0 L [place] # 1.2 H Seg Neutrophils % 80.8 H Seg Neutrophils # 9.7 H PT INR APTT POC ABG pH ABG pH POC ABG pCO2 POC ABG pO2 ABG pO2 ABG HCO3 ABG O2 Saturation ABG Base Excess ABG Hemoglobin Oxyhemoglobin Sodium Potassium Chloride Carbon Dioxide BUN Creatinine Glucose POC Glucose 125 H 112 H Uric Acid Calcium Phosphorus Magnesium AST ALT Total Creatine Kinase CK-MB (CK-2) Troponin T NT-Pro-B Natriuret Pep Total Protein Albumin Triglycerides HDL Cholesterol Urine WBC (Auto) Urine Creatinine Urine Total Protein 05/05/19 05/06/19 05/06/19 23:42 03:58 04:45 WBC 11.4 H RBC Hgb 10.7 L Hct 34.2 L MCV MCH 27 L MCHC 31 L RDW 16.9 H Lymph % (Auto) [place] % (Auto) Lymph # [place] # Seg Neutrophils % Seg Neutrophils # PT INR APTT POC ABG pH ABG pH POC ABG pCO2 62.4 H POC ABG pO2 111 H ABG pO2 ABG HCO3 ABG O2 Saturation ABG Base Excess ABG Hemoglobin Oxyhemoglobin Sodium Potassium Chloride Carbon Dioxide BUN Creatinine Glucose POC Glucose 128 H Uric Acid Calcium Phosphorus Magnesium AST ALT Total Creatine Kinase CK-MB (CK-2) Troponin T NT-Pro-B Natriuret Pep Total Protein Albumin Triglycerides HDL Cholesterol Urine WBC (Auto) Urine Creatinine Urine Total Protein 05/06/19 05/06/19 05/06/19 04:45 05:33 12:30 WBC RBC Hgb Hct MCV MCH MCHC RDW Lymph % (Auto) [place] % (Auto) Lymph # [place] # Seg Neutrophils % Seg Neutrophils # PT INR APTT POC ABG pH ABG pH POC ABG pCO2 POC ABG pO2 ABG pO2 ABG HCO3 ABG O2 Saturation ABG Base Excess ABG Hemoglobin Oxyhemoglobin Sodium 149 H Potassium Chloride Carbon Dioxide 31 H BUN 67 H Creatinine 3.2 H Glucose 125 H POC Glucose 117 H 116 H Uric Acid Calcium 7.5 L Phosphorus Magnesium AST ALT Total Creatine Kinase CK-MB (CK-2) Troponin T NT-Pro-B Natriuret Pep Total Protein Albumin Triglycerides HDL Cholesterol Urine WBC (Auto) Urine Creatinine Urine Total Protein 05/06/19 05/06/19 05/07/19 18:34 23:16 05:22 WBC RBC Hgb Hct MCV MCH MCHC RDW Lymph % (Auto) [place] % (Auto) Lymph # [place] # Seg Neutrophils % Seg Neutrophils # PT INR APTT POC ABG pH ABG pH POC ABG pCO2 POC ABG pO2 ABG pO2 ABG HCO3 ABG O2 Saturation ABG Base Excess ABG Hemoglobin Oxyhemoglobin Sodium Potassium Chloride Carbon Dioxide BUN Creatinine Glucose POC Glucose 128 H 143 H 166 H Uric Acid Calcium Phosphorus Magnesium AST ALT Total Creatine Kinase CK-MB (CK-2) Troponin T NT-Pro-B Natriuret Pep Total Protein Albumin Triglycerides HDL Cholesterol Urine WBC (Auto) Urine Creatinine Urine Total Protein 05/07/19 05/07/19 05/07/19 06:33 07:03 09:35 WBC RBC Hgb Hct MCV MCH MCHC RDW Lymph % (Auto) [place] % (Auto) Lymph # [place] # Seg Neutrophils % Seg Neutrophils # PT INR APTT POC ABG pH 7.263 L 7.288 L ABG pH POC ABG pCO2 POC ABG pO2 51 L 56 L ABG pO2 ABG HCO3 ABG O2 Saturation ABG Base Excess ABG Hemoglobin Oxyhemoglobin Sodium Potassium Chloride Carbon Dioxide BUN 76 H Creatinine 3.2 H Glucose 147 H POC Glucose Uric Acid Calcium 7.9 L Phosphorus Magnesium AST ALT Total Creatine Kinase CK-MB (CK-2) Troponin T NT-Pro-B Natriuret Pep Total Protein Albumin Triglycerides HDL Cholesterol Urine WBC (Auto) Urine Creatinine Urine Total Protein 05/07/19 05/07/19 05/07/19 09:35 12:17 13:45 WBC 13.4 H RBC Hgb 11.6 L Hct MCV MCH 27 L MCHC 31 L RDW 17.5 H Lymph % (Auto) [place] % (Auto) Lymph # [place] # Seg Neutrophils % Seg Neutrophils # PT INR APTT POC ABG pH ABG pH POC ABG pCO2 POC ABG pO2 ABG pO2 ABG HCO3 ABG O2 Saturation ABG Base Excess ABG Hemoglobin Oxyhemoglobin Sodium Potassium Chloride Carbon Dioxide BUN Creatinine Glucose POC Glucose 130 H Uric Acid 18.0 H Calcium Phosphorus Magnesium AST ALT Total Creatine Kinase CK-MB (CK-2) Troponin T NT-Pro-B Natriuret Pep Total Protein Albumin Triglycerides HDL Cholesterol Urine WBC (Auto) Urine Creatinine Urine Total Protein 05/07/19 05/07/19 05/08/19 17:39 22:40 05:06 WBC RBC Hgb Hct MCV MCH MCHC RDW Lymph % (Auto) [place] % (Auto) Lymph # [place] # Seg Neutrophils % Seg Neutrophils # PT INR APTT POC ABG pH ABG pH POC ABG pCO2 POC ABG pO2 ABG pO2 ABG HCO3 ABG O2 Saturation ABG Base Excess ABG Hemoglobin Oxyhemoglobin Sodium Potassium Chloride Carbon Dioxide BUN Creatinine Glucose POC Glucose 116 H 148 H Uric Acid Calcium Phosphorus Magnesium AST ALT Total Creatine Kinase CK-MB (CK-2) Troponin T NT-Pro-B Natriuret Pep Total Protein Albumin Triglycerides HDL Cholesterol Urine WBC (Auto) Urine Creatinine 292.8 H Urine Total Protein 269 H 05/08/19 05/08/19 05/08/19 05:32 11:28 13:48 WBC RBC Hgb Hct MCV MCH MCHC RDW Lymph % (Auto) [place] % (Auto) Lymph # [place] # Seg Neutrophils % Seg Neutrophils # PT INR APTT POC ABG pH ABG pH POC ABG pCO2 45.4 H POC ABG pO2 64 L ABG pO2 ABG HCO3 ABG O2 Saturation ABG Base Excess ABG Hemoglobin Oxyhemoglobin Sodium Potassium Chloride Carbon Dioxide BUN 73 H Creatinine 2.7 H Glucose 127 H POC Glucose 107 H Uric Acid Calcium 7.6 L Phosphorus Magnesium AST ALT Total Creatine Kinase CK-MB (CK-2) Troponin T NT-Pro-B Natriuret Pep Total Protein Albumin Triglycerides HDL Cholesterol Urine WBC (Auto) Urine Creatinine Urine Total Protein 05/08/19 05/09/19 05/09/19 17:48 04:50 04:53 WBC RBC 3.07 L Hgb 8.5 L D Hct 29.3 L D MCV 96 H MCH MCHC 29 L RDW 18.1 H Lymph % (Auto) [place] % (Auto) Lymph # [place] # Seg Neutrophils % Seg Neutrophils # PT INR APTT POC ABG pH 7.316 L ABG pH POC ABG pCO2 66.0 H POC ABG pO2 69 L ABG pO2 ABG HCO3 ABG O2 Saturation ABG Base Excess ABG Hemoglobin Oxyhemoglobin Sodium Potassium Chloride Carbon Dioxide BUN Creatinine Glucose POC Glucose 155 H Uric Acid Calcium Phosphorus Magnesium AST ALT Total Creatine Kinase CK-MB (CK-2) Troponin T NT-Pro-B Natriuret Pep Total Protein Albumin Triglycerides HDL Cholesterol Urine WBC (Auto) Urine Creatinine Urine Total Protein 05/09/19 05/09/19 05/09/19 05:46 07:24 12:10 WBC RBC Hgb Hct MCV MCH MCHC RDW Lymph % (Auto) [place] % (Auto) Lymph # [place] # Seg Neutrophils % Seg Neutrophils # PT INR APTT POC ABG pH ABG pH POC ABG pCO2 POC ABG pO2 ABG pO2 ABG HCO3 ABG O2 Saturation ABG Base Excess ABG Hemoglobin Oxyhemoglobin Sodium Potassium Chloride Carbon Dioxide BUN 73 H Creatinine 2.4 H Glucose 153 H POC Glucose 123 H 148 H Uric Acid Calcium 8.2 L Phosphorus Magnesium AST 45 H ALT Total Creatine Kinase CK-MB (CK-2) Troponin T NT-Pro-B Natriuret Pep Total Protein 6.0 L Albumin 1.9 L Triglycerides HDL Cholesterol Urine WBC (Auto) Urine Creatinine Urine Total Protein 05/09/19 05/09/19 05/10/19 18:23 23:26 04:52 WBC RBC Hgb Hct MCV MCH MCHC RDW Lymph % (Auto) [place] % (Auto) Lymph # [place] # Seg Neutrophils % Seg Neutrophils # PT INR APTT POC ABG pH 7.305 L ABG pH POC ABG pCO2 62.6 H POC ABG pO2 ABG pO2 ABG HCO3 ABG O2 Saturation ABG Base Excess ABG Hemoglobin Oxyhemoglobin Sodium Potassium Chloride Carbon Dioxide BUN Creatinine Glucose POC Glucose 147 H 121 H Uric Acid Calcium Phosphorus Magnesium AST ALT Total Creatine Kinase CK-MB (CK-2) Troponin T NT-Pro-B Natriuret Pep Total Protein Albumin Triglycerides HDL Cholesterol Urine WBC (Auto) Urine Creatinine Urine Total Protein 05/10/19 05/10/19 05/10/19 05:00 05:00 05:50 WBC RBC Hgb 10.3 L Hct 33.7 L MCV MCH 27 L MCHC 31 L RDW 17.0 H Lymph % (Auto) [place] % (Auto) Lymph # [place] # Seg Neutrophils % Seg Neutrophils # PT INR APTT POC ABG pH ABG pH POC ABG pCO2 POC ABG pO2 ABG pO2 ABG HCO3 ABG O2 Saturation ABG Base Excess ABG Hemoglobin Oxyhemoglobin Sodium 147 H Potassium Chloride Carbon Dioxide BUN 70 H Creatinine 2.6 H Glucose 155 H POC Glucose 158 H Uric Acid Calcium 8.2 L Phosphorus Magnesium AST ALT Total Creatine Kinase CK-MB (CK-2) Troponin T NT-Pro-B Natriuret Pep Total Protein 6.1 L Albumin 2.5 L Triglycerides HDL Cholesterol Urine WBC (Auto) Urine Creatinine Urine Total Protein 05/10/19 05/11/19 05/11/19 13:14 07:26 11:40 WBC RBC Hgb Hct MCV MCH MCHC RDW Lymph % (Auto) [place] % (Auto) Lymph # [place] # Seg Neutrophils % Seg Neutrophils # PT INR APTT POC ABG pH ABG pH POC ABG pCO2 48.0 H POC ABG pO2 58 L ABG pO2 ABG HCO3 ABG O2 Saturation ABG Base Excess ABG Hemoglobin Oxyhemoglobin Sodium 147 H Potassium Chloride 107.2 H Carbon Dioxide BUN 67 H Creatinine 2.6 H Glucose 121 H POC Glucose 159 H Uric Acid Calcium Phosphorus Magnesium AST ALT Total Creatine Kinase CK-MB (CK-2) Troponin T NT-Pro-B Natriuret Pep Total Protein Albumin Triglycerides HDL Cholesterol Urine WBC (Auto) Urine Creatinine Urine Total Protein 05/11/19 05/11/19 05/12/19 18:13 23:46 04:40 WBC RBC Hgb Hct MCV MCH MCHC RDW Lymph % (Auto) [place] % (Auto) Lymph # [place] # Seg Neutrophils % Seg Neutrophils # PT INR APTT POC ABG pH ABG pH 7.264 L POC ABG pCO2 POC ABG pO2 ABG pO2 66.8 L ABG HCO3 31.0 H ABG O2 Saturation 92.0 L ABG Base Excess ABG Hemoglobin 10.3 L Oxyhemoglobin 90.1 L Sodium Potassium Chloride Carbon Dioxide BUN Creatinine Glucose POC Glucose 120 H 121 H Uric Acid Calcium Phosphorus Magnesium AST ALT Total Creatine Kinase CK-MB (CK-2) Troponin T NT-Pro-B Natriuret Pep Total Protein Albumin Triglycerides HDL Cholesterol Urine WBC (Auto) Urine Creatinine Urine Total Protein 05/12/19 05/12/19 04:45 04:45 WBC RBC Hgb 10.2 L Hct 32.4 L MCV MCH MCHC 31 L RDW 17.2 H Lymph % (Auto) [place] % (Auto) Lymph # [place] # Seg Neutrophils % Seg Neutrophils # PT INR APTT POC ABG pH ABG pH POC ABG pCO2 POC ABG pO2 ABG pO2 ABG HCO3 ABG O2 Saturation ABG Base Excess ABG Hemoglobin Oxyhemoglobin Sodium Potassium Chloride Carbon Dioxide BUN 63 H Creatinine 2.4 H Glucose 110 H POC Glucose Uric Acid Calcium Phosphorus Magnesium AST ALT Total Creatine Kinase CK-MB (CK-2) Troponin T NT-Pro-B Natriuret Pep Total Protein Albumin Triglycerides HDL Cholesterol Urine WBC (Auto) Urine Creatinine Urine Total Protein
--- NOTE | 2019-05-12 11:56 | Progress Note ---
Assessment and Plan # Acute kidney injury: creatinine remains higher than presumed baseline of 1.9 on 05/03/2019, stable at 2.4 today. Suspect tubular injury in setting of sepsis, respiratory failure, hypotension. S/p diuresis on 05/09 - continue supportive measures, appreciate pulm and ID input - avoid nephrotoxins - diuresis prn per pulm, now off florinef. Would ideally like to avoid over diuresis due to risk to renal tubule recovery, no indication for diuretic today from renal perspective - previous studies reviewed, will need repeat ultrasound renal, ordered for today - no indication for renal replacement therapy - follow vanc levels # Hypernatremia: sodium to 145 - now off florinef - continue free water flushes with TF # HTN: BP reasonable, continue current management # Anemia: hemoglobin stable to 10.2, pRBC transfusion prn # Encephalopathy, seizure disorder, hypoxic respiratory failure, fever: ID and pulm following We'll continue to follow and make recommendation from renal standpoint for this critically ill patient; we appreciate the opportunity to assist in his care. Subjective Date of service: 05/12/19 Principal diagnosis: HF; acute hypoxemic resp failure, SIRS, CARLA Interval history: No acute events noted. Remains intubated and sedated. Objective - Exam Narrative Exam: General: No acute distress/ intubated and sedated HEENT: ET tube in place Neck: Supple Chest:coarse mechanical breath sounds, PRVC with FiO2 80% Heart: Regular rate and rhythm Abdomen: Soft nontender Extremity: no edema Psych: sedated Derm: No petechial rash - Vital Signs Vital signs: Vital Signs - 12hr 05/12/19 05/12/19 05/12/19 00:00 00:15 00:30 Temperature 100.4 F H Pulse Rate 92 H 91 H 93 H Pulse Rate [ 92 H From Monitor] Respiratory 19 19 18 Rate Blood Pressure 122/60 120/59 124/60 O2 Sat by Pulse 97 97 96 Oximetry 05/12/19 05/12/19 05/12/19 00:34 00:45 01:00 Temperature Pulse Rate 94 H 97 H 95 H Pulse Rate [ From Monitor] Respiratory 20 20 Rate Blood Pressure 124/60 125/63 125/63 O2 Sat by Pulse 96 91 95 Oximetry 05/12/19 05/12/19 05/12/19 01:15 01:30 01:45 Temperature Pulse Rate 95 H 94 H 96 H Pulse Rate [ From Monitor] Respiratory 20 19 20 Rate Blood Pressure 119/63 124/61 126/63 O2 Sat by Pulse 93 93 91 Oximetry 05/12/19 05/12/19 05/12/19 02:00 02:15 02:30 Temperature Pulse Rate 94 H 95 H 92 H Pulse Rate [ From Monitor] Respiratory 20 20 20 Rate Blood Pressure 122/59 125/60 119/64 O2 Sat by Pulse 89 90 92 Oximetry 05/12/19 05/12/19 05/12/19 02:45 03:00 03:15 Temperature Pulse Rate 93 H 94 H 92 H Pulse Rate [ From Monitor] Respiratory 20 20 20 Rate Blood Pressure 120/62 122/61 117/55 O2 Sat by Pulse 92 92 93 Oximetry 05/12/19 05/12/19 05/12/19 03:30 03:31 03:45 Temperature 99.9 F H Pulse Rate 93 H 92 H Pulse Rate [ From Monitor] Respiratory 20 19 Rate Blood Pressure 116/56 122/62 O2 Sat by Pulse 94 94 Oximetry 05/12/19 05/12/19 05/12/19 04:00 04:16 04:30 Temperature Pulse Rate 99 H 106 H 103 H Pulse Rate [ 99 H From Monitor] Respiratory 21 13 20 Rate Blood Pressure 116/56 116/56 140/74 O2 Sat by Pulse 95 91 90 Oximetry 05/12/19 05/12/19 05/12/19 04:32 04:45 05:00 Temperature Pulse Rate 106 H 104 H 103 H Pulse Rate [ From Monitor] Respiratory 20 22 Rate Blood Pressure 140/74 143/73 139/69 O2 Sat by Pulse 95 93 88 Oximetry 05/12/19 05/12/19 05/12/19 05:15 05:30 05:45 Temperature Pulse Rate 112 H 108 H 106 H Pulse Rate [ From Monitor] Respiratory 13 18 16 Rate Blood Pressure 155/97 155/97 162/83 O2 Sat by Pulse 92 91 Oximetry 05/12/19 05/12/19 05/12/19 06:00 06:16 06:30 Temperature Pulse Rate 105 H 97 H 91 H Pulse Rate [ From Monitor] Respiratory 12 17 14 Rate Blood Pressure 159/93 126/46 126/46 O2 Sat by Pulse 87 86 Oximetry 05/12/19 05/12/19 05/12/19 06:45 07:00 07:15 Temperature Pulse Rate 94 H 95 H 96 H Pulse Rate [ From Monitor] Respiratory 22 21 21 Rate Blood Pressure 152/76 140/71 134/82 O2 Sat by Pulse 83 L 85 91 Oximetry 05/12/19 05/12/19 05/12/19 07:30 07:45 08:00 Temperature 98.5 F Pulse Rate 94 H 93 H 92 H Pulse Rate [ 95 H From Monitor] Respiratory 19 18 26 H Rate Blood Pressure 136/82 138/75 143/70 O2 Sat by Pulse 92 93 93 Oximetry 05/12/19 05/12/19 05/12/19 08:15 08:30 08:45 Temperature Pulse Rate 94 H 96 H 91 H Pulse Rate [ From Monitor] Respiratory 20 22 21 Rate Blood Pressure 146/73 140/71 138/67 O2 Sat by Pulse 92 90 91 Oximetry 05/12/19 05/12/19 05/12/19 09:00 09:15 09:30 Temperature Pulse Rate 89 89 89 Pulse Rate [ From Monitor] Respiratory 22 19 19 Rate Blood Pressure 135/63 135/63 136/66 O2 Sat by Pulse 92 92 91 Oximetry 05/12/19 05/12/19 05/12/19 09:44 09:45 10:00 Temperature Pulse Rate 86 86 86 Pulse Rate [ From Monitor] Respiratory 24 16 Rate Blood Pressure 136/66 131/66 128/62 O2 Sat by Pulse 93 95 Oximetry 05/12/19 05/12/19 05/12/19 10:15 10:30 10:45 Temperature Pulse Rate 84 81 79 Pulse Rate [ From Monitor] Respiratory 24 18 17 Rate Blood Pressure 126/60 121/54 125/60 O2 Sat by Pulse 94 95 94 Oximetry 05/12/19 11:00 Temperature Pulse Rate 80 Pulse Rate [ From Monitor] Respiratory 20 Rate Blood Pressure 122/59 O2 Sat by Pulse 94 Oximetry - Lab 05/12/19 04:45 05/12/19 04:45 Most recent lab results ABG pH 7.264 pH Units (7.350-7.450) L 05/12/19 04:40 ABG pCO2 69.9 mm Hg 05/12/19 04:40 ABG pO2 66.8 mm Hg (80.0-90.0) L 05/12/19 04:40 ABG HCO3 31.0 mmol/L (20.0-26.0) H 05/12/19 04:40 ABG O2 Saturation 92.0 % (95.0-99.0) L 05/12/19 04:40 Calcium 9.0 mg/dL (8.4-10.2) 05/12/19 04:45 Phosphorus 4.90 mg/dL (2.5-4.5) H 05/02/19 00:06 Magnesium 2.30 mg/dL (1.7-2.3) 05/02/19 00:06 Urine Creatinine 292.8 mg/dL (0.1-20.0) H 05/07/19 22:40 Urine Sodium 11 mmol/L 05/07/19 22:40 Urine Total Protein 269 mg/dL (5-11.8) H 05/07/19 22:40 Medications & Allergies - Medications Allergies/Adverse Reactions: Allergies No Known Allergies Allergy (Verified 05/01/19 20:27) Home Medications: Home Medications Medication Instructions Recorded Confirmed Last Taken Type No Known Home Medications [No 05/03/19 05/03/19 Unknown History Reported Home Medications] Active Medications: Generic Name Dose Route Start Last Admin Trade Name Freq PRN Reason Stop Dose Admin Acetaminophen 650 mg 05/01/19 22:46 05/11/19 19:46 Tylenol PO 650 mg Q4H PRN Administration Pain MILD(1-3)/Fever >100.5/FREEMAN Lipase/Protease/Amylase 1 each 05/10/19 11:23 Pancreaze 10,500 Unit FEEDTUBE PRN PRN For Clogged Feeding Tube Dextrose 50 gm 05/01/19 20:24 D50w (25gm) Vial IV Q30MIN PRN Hypoglycemia Protocol Enoxaparin Sodium 30 mg 05/05/19 10:00 05/12/19 09:44 Enoxaparin SUB-Q 30 mg QDAY VICKEY Administration Famotidine 20 mg 05/05/19 10:00 05/12/19 09:44 Pepcid PO 20 mg DAILY VICKEY Administration Hydrophilic Ointment 1 applic 05/01/19 21:14 Vaseline Lip Therapy TP Q2HR PRN Dry Lips Fentanyl Citrate 2,000 mcg in 100 mls @ 10.195 mls/hr 05/01/19 22:00 05/12/19 09:47 Fentanyl Drip Premix IV 2 mcg/kg/hr TITR VICKEY 20.39 mls/hr Administration Protocol 1 MCG/KG/HR Propofol 1,000 mg in 100 mls @ 7.011 mls/hr 05/03/19 04:00 05/12/19 08:20 Diprivan 10 Mg/Ml IV 20 mcg/kg/min TITR VICKEY 28.044 mls/hr Administration Protocol 5 MCG/KG/MIN Norepinephrine 4 mg in 250 mls @ 7.5 mls/hr 05/03/19 18:00 Levophed Drip 4 Mg/Ns 250 Ml IV TITR VICKEY Protocol 2 MCG/MIN Sodium Chloride 500 mls @ 10 mls/hr 05/06/19 15:00 Nacl 0.9% 500 Ml IV DIRECT VICKEY Ceftriaxone Sodium 2 gm in 100 mls @ 200 mls/hr 05/07/19 22:00 05/12/19 09:54 Rocephin/Ns 2 Gm/100 Ml IV 200 mls/hr Q12HR VICKEY Administration Protocol Levetiracetam 750 mg/ Dextrose 107.5 mls @ 400 mls/hr 05/09/19 22:00 05/12/19 10:30 IV 05/12/19 23:59 400 mls/hr Q12HR VICKEY Administration Metronidazole 500 mg in 100 mls @ 100 mls/hr 05/11/19 14:00 05/12/19 05:28 Flagyl 500 Mg/100 Ml IV 100 mls/hr Q8HR VICKEY Administration Protocol Vancomycin HCl 2,000 mg/ 540 mls @ 250 mls/hr 05/12/19 11:00 Sodium Chloride IV Q24HR VICKEY Levetiracetam 750 mg 05/13/19 10:00 Keppra PO BID VICKEY Lorazepam 2 mg 05/06/19 06:22 05/10/19 16:17 Ativan IV 2 mg Q4H PRN Administration Seizures/AGITATION Metoprolol Tartrate 25 mg 05/02/19 04:00 05/12/19 09:44 Metoprolol PO 25 mg BID VICKEY Administration Multi-Ingred Cream/Lotion/Oil/Oint 1 applic 05/01/19 21:14 Artificial Tears Ophth Oint OU Q4HR PRN Dry Eye(s) Ondansetron HCl 4 mg 05/01/19 22:46 Zofran IV Q8H PRN Nausea And Vomiting Simple Syrup 15 ml 05/10/19 11:23 Simple Syrup FEEDTUBE PRN PRN Hypoglycemia Simple Syrup 30 ml 05/10/19 11:23 Simple Syrup FEEDTUBE PRN PRN Hypoglycemia Sodium Bicarbonate 325 mg 05/10/19 11:23 Sodium Bicarbonate FEEDTUBE PRN PRN For Clogged Feeding Tube Sodium Chloride 10 ml 05/02/19 10:00 05/12/19 10:07 Sodium Chloride Flush Syringe 10 Ml IV 10 ml BID VICKEY Administration Sodium Chloride 10 ml 05/01/19 22:46 05/05/19 02:28 Sodium Chloride Flush Syringe 10 Ml IV 10 ml PRN PRN Administration LINE FLUSH
[2019-05-12] MEDS: VANCOMYCIN 2,000 MG in SODIUM CHLORIDE 0.9% 500 ML 500 ML IV SCH (12:08)
--- NOTE | 2019-05-12 16:33 | Progress Note ---
Assessment and Plan Cultures: Blood cultures 05/11/19: no growth thus far Sputum culture 05/11/19: no growth thus far urine culture: no growth resp culture: no growth A/P: 34-year-old male with obesity admitted with: #Fever, SIRS: Patient was afebrile for the first 2 days of hospitalization, then he developed a fever of 101.2F. ?aspiration related. Apparently was using CPAP. Now febrile again, ?UTI. UA showed pyuria, had indwelling Berkowitz which was removed. Urine culture with no growth. #Acute hypoxic hypercapneic respiratory failure, possibly obesity hypoventil ation syndrome: on the vent. Pulmonary managing. #Morbid obesity #CARLA: creatinine elevated. dose abx accordingly. #Elevated LFTs: RUQ US showed fatty liver, small GB sludge. Improving. #Acute encephalopathy with ?seizure activity: persistent fevers. Agree with possible meningitis coverage Recs: Fevers recurring, but now better. Continue to monitor on current regimen. continue empiric meningitis coverage with Ceftriaxone, Vancomycin Added metronidazole due to fevers and concern for previous aspiration If fevers continue to recur may need to change to meropenem. Also consider central fevers. Nancy Bearden MD [facility] M: [phone] O: [phone] F: [phone] Subjective Date of service: 05/12/19 Principal diagnosis: HF; acute hypoxemic resp failure, SIRS, CARLA Interval history: Febrile to 100.4, normal WBC Objective - Exam Narrative Exam: Constitutional: sedated, intubated. Morbid obesity Head, Ears, Nose: Normocephalic, atraumatic. External ears, nose normal Eyes: Conjunctivae/corneas clear. No icterus. No ptosis. Neck: intubated Oral: intubated Cardiovascular: S1, S2 normal. Respiratory: Good air entry, clear to auscultation bilaterally GI: Soft, non-tender; bowel sounds normal. No peritoneal signs Musculoskeletal: No pedal edema, no cyanosis. Skin: No rash or abscess Hem/Lymphatic: No palpable cervical or supraclavicular nodes. No lymphangitis Psych: no agitation Neurological: sedated, intubated, on vent - Constitutional Vitals: Vital Signs Temp Pulse Resp BP Pulse Ox 99.1 F 89 21 117/56 94 05/12/19 12:00 05/12/19 15:30 05/12/19 15:30 05/12/19 15:30 05/12/19 15:30 Temperature -Last 24 Hours Temperature 99.1 F Temperature 98.5 F Temperature 99.9 F Temperature 100.4 F Temperature 100.8 F - Labs CBC & Chem 7: 05/12/19 04:45 05/12/19 04:45 Labs: Abnormal lab results 05/11/19 05/11/19 05/12/19 Range/Units 18:13 23:46 04:40 Hgb (11.8-15.2) gm/dl Hct (35.5-45.6) % MCHC (32-34) % RDW (13.2-15.2) % POC ABG pH (7.35-7.45) ABG pH 7.264 L (7.350-7.450) pH Units POC ABG pCO2 (35-45) ABG pO2 66.8 L (80.0-90.0) mm Hg ABG HCO3 31.0 H (20.0-26.0) mmol/L ABG O2 Saturation 92.0 L (95.0-99.0) % ABG Hemoglobin 10.3 L (14.0-18.0) gm/dl Oxyhemoglobin 90.1 L (95.0-99.0) % BUN (9-20) mg/dL Creatinine (0.8-1.5) mg/dL Glucose (75-100) mg/dL POC Glucose 120 H 121 H (70-105) 05/12/19 05/12/19 05/12/19 Range/Units 04:45 04:45 11:14 Hgb 10.2 L (11.8-15.2) gm/dl Hct 32.4 L (35.5-45.6) % MCHC 31 L (32-34) % RDW 17.2 H (13.2-15.2) % POC ABG pH 7.284 L (7.35-7.45) ABG pH (7.350-7.450) pH Units POC ABG pCO2 67.8 H (35-45) ABG pO2 (80.0-90.0) mm Hg ABG HCO3 (20.0-26.0) mmol/L ABG O2 Saturation (95.0-99.0) % ABG Hemoglobin (14.0-18.0) gm/dl Oxyhemoglobin (95.0-99.0) % BUN 63 H (9-20) mg/dL Creatinine 2.4 H (0.8-1.5) mg/dL Glucose 110 H (75-100) mg/dL POC Glucose (70-105) 05/12/19 Range/Units 11:44 Hgb (11.8-15.2) gm/dl Hct (35.5-45.6) % MCHC (32-34) % RDW (13.2-15.2) % POC ABG pH (7.35-7.45) ABG pH (7.350-7.450) pH Units POC ABG pCO2 (35-45) ABG pO2 (80.0-90.0) mm Hg ABG HCO3 (20.0-26.0) mmol/L ABG O2 Saturation (95.0-99.0) % ABG Hemoglobin (14.0-18.0) gm/dl Oxyhemoglobin (95.0-99.0) % BUN (9-20) mg/dL Creatinine (0.8-1.5) mg/dL Glucose (75-100) mg/dL POC Glucose 126 H (70-105)
--- NOTE | 2019-05-12 22:33 | Ultrasound Report ---
EXAMINATION: Renal Ultrasound, 05/12/2019 Indication: Acute kidney injury. COMPARISON: Bilateral renal ultrasound, 05/08/2019 Findings: Evaluation on today's study is very limited secondary to patient body habitus. The right kidney is no t visualized. The left kidney appears grossly normal in size and echogenicity measuring 12.6 cm in [facility]. The bladder is not well-visualized. Impression: 1. Technically very limited evaluation secondary to patient body habitus. 2. Grossly normal sonographic appearance of the left kidney. 3. Nonvisualization of the right kidney. Signer Name: Katie Dumont MD Signed: 05/12/2019 10:29 PM Workstation Name: [id number]
[2019-05-13] MEDS: fentaNYL DRIP Premix 2,000 MCG/100 ML BAG IV SCH ×5 (02:46→21:47)
[2019-05-13 05:25] LABS: ABG Base Excess 3.2 mmol/L (-2.0-3.0); ABG HCO3 30.9 mmol/L (20.0-26.0); ABG Methemoglobin 0.5 % (0.0-1.5); ABG Oxygen Saturation 97.5 % (95.0-99.0); ABG PCO2 65.9 mm Hg; ABG PH 7.288 pH Units (7.350-7.450); ABG PO2 109.7 mm Hg (80.0-90.0)
[2019-05-13] MEDS: metroNIDAZOLE/NS 500 MG/100 ML 500 MG/100 ML BAG IV SCH ×3 (06:20→21:39)
[2019-05-13] MEDS: hydrALAZINE 20 MG/1 ML INJ IV PRN ×2 (08:14→14:12)
[2019-05-13] MEDS: METOPROLOL TARTRATE 25 MG TAB PO SCH (09:01)
[2019-05-13] MEDS: levETIRAcetam 500 MG/5 ML ORAL LIQD PO SCH ×2 (09:02→21:14)
[2019-05-13] MEDS: FAMOTIDINE 20 MG TAB PO SCH ×2 (09:02→21:14)
[2019-05-13] MEDS: ENOXAPARIN 40 MG/0.4 ML INJ SUB-Q SCH (09:02)
[2019-05-13] MEDS: cefTRIAXone/NS 2 GM/100 ML 2 GM/100 ML BAG IV SCH ×2 (09:02→21:15)
[2019-05-13] MEDS ORDERED: ENOXAPARIN 40 MG/0.4 ML INJ SUB-Q SCH (10:00)
[2019-05-13] MEDS: VANCOMYCIN 2,000 MG in SODIUM CHLORIDE 0.9% 500 ML 500 ML IV SCH (10:41)
[2019-05-13] MEDS ORDERED: ALTEPLASE 2 MG INJ IV ONE ×2 (10:52)
--- NOTE | 2019-05-13 10:55 | Progress Note ---
Assessment and Plan 34 y/o male with acute hypoxic, hypercapnic respiratory failure currently ventilated and sedated, now with persistent fevers and seizure. 1. Neuro: EEG shows no seizures. 2. Pulm: continue to wean FiO2 for sats >88% and or PaO2 of greater than 55. Do not wean PEEP until FiO2 is at 50% or lower. Permissive hypercapnea is ok as long as pH is not lower than 7.2 3. Renal: Cr improved to less than 3.0, making urine. Hold diuresis. Stop D5 as patient is tolerating tube feeds 4. Fever: recurrent now. Cultures pending from yesterday. has PRN tylenol. Await further ID recs. 5. Day number of 12 of intubation. 6. ordered cathflo x2 for picc line to see if this will help. CCT 31 minutes. Subjective Date of service: 05/13/19 Principal diagnosis: HF; acute hypoxemic resp failure, SIRS, CARLA Interval history: No acute events. Slightly hypertensive this am but improving. Ports on picc not working. Objective Vital Signs - 12hr 05/12/19 05/12/19 05/12/19 23:00 23:15 23:23 Temperature 98.9 F Pulse Rate 96 H 94 H Respiratory 26 H 21 Rate Blood Pressure 150/76 153/78 O2 Sat by Pulse 91 92 Oximetry 05/12/19 05/12/19 05/13/19 23:30 23:45 00:00 Temperature Pulse Rate 94 H 93 H 92 H Respiratory 16 19 21 Rate Blood Pressure 144/79 148/78 145/72 O2 Sat by Pulse 91 92 99 Oximetry 05/13/19 05/13/19 05/13/19 00:15 00:30 00:42 Temperature Pulse Rate 93 H 94 H 95 H Respiratory 15 20 Rate Blood Pressure 145/78 145/74 145/74 O2 Sat by Pulse 94 Oximetry 05/13/19 05/13/19 05/13/19 00:45 01:00 01:15 Temperature Pulse Rate 94 H 95 H 95 H Respiratory 23 15 19 Rate Blood Pressure 146/73 142/74 148/75 O2 Sat by Pulse 91 93 92 Oximetry 05/13/19 05/13/19 05/13/19 01:30 01:45 02:00 Temperature Pulse Rate 96 H 97 H 102 H Respiratory 20 20 19 Rate Blood Pressure 142/74 139/68 161/86 O2 Sat by Pulse 100 Oximetry 05/13/19 05/13/19 05/13/19 02:15 02:30 02:45 Temperature Pulse Rate 96 H 94 H 95 H Respiratory 20 20 16 Rate Blood Pressure 137/68 145/70 138/75 O2 Sat by Pulse 94 93 95 Oximetry 05/13/19 05/13/19 05/13/19 03:00 03:15 03:30 Temperature Pulse Rate 94 H 92 H 91 H Respiratory 20 21 20 Rate Blood Pressure 139/68 143/73 137/70 O2 Sat by Pulse 94 94 Oximetry 05/13/19 05/13/19 05/13/19 03:45 04:00 04:15 Temperature 98.8 F 98.8 F Pulse Rate 89 88 88 Respiratory 20 20 20 Rate Blood Pressure 140/69 137/71 133/70 O2 Sat by Pulse 94 99 Oximetry 05/13/19 05/13/19 05/13/19 04:22 04:30 04:45 Temperature Pulse Rate 89 93 H 90 Respiratory 20 14 Rate Blood Pressure 133/70 149/82 135/69 O2 Sat by Pulse 96 94 100 Oximetry 05/13/19 05/13/19 05/13/19 05:00 05:15 05:30 Temperature Pulse Rate 89 92 H 94 H Respiratory 22 18 11 L Rate Blood Pressure 126/58 146/71 145/79 O2 Sat by Pulse 93 92 Oximetry 05/13/19 05/13/19 05/13/19 05:45 06:00 06:15 Temperature Pulse Rate 95 H 95 H 97 H Respiratory 22 14 15 Rate Blood Pressure 146/73 154/82 140/73 O2 Sat by Pulse 93 Oximetry 05/13/19 05/13/19 05/13/19 06:30 06:45 07:00 Temperature Pulse Rate 91 H 90 90 Respiratory 23 17 14 Rate Blood Pressure 148/73 141/74 144/68 O2 Sat by Pulse 99 93 93 Oximetry 05/13/19 05/13/19 05/13/19 07:15 07:30 07:34 Temperature Pulse Rate 92 H 94 H 92 H Respiratory 16 23 Rate Blood Pressure 143/71 130/79 130/79 O2 Sat by Pulse 92 92 95 Oximetry 05/13/19 05/13/19 05/13/19 07:45 08:00 08:14 Temperature 98.1 F Pulse Rate 100 H 104 H 105 H Respiratory 22 15 Rate Blood Pressure 175/95 219/114 212/107 O2 Sat by Pulse 95 93 Oximetry 05/13/19 05/13/19 05/13/19 08:15 08:30 08:45 Temperature Pulse Rate 104 H 107 H 103 H Respiratory 18 18 29 H Rate Blood Pressure 197/104 186/87 206/87 O2 Sat by Pulse 96 97 95 Oximetry 05/13/19 05/13/19 05/13/19 09:00 09:01 09:15 Temperature Pulse Rate 97 H 96 H 89 Respiratory 25 H 15 Rate Blood Pressure 214/94 212/94 180/89 O2 Sat by Pulse 93 92 Oximetry 05/13/19 05/13/19 05/13/19 09:30 09:45 10:00 Temperature Pulse Rate 83 83 84 Respiratory 26 H 21 16 Rate Blood Pressure 171/84 163/81 178/93 O2 Sat by Pulse 93 Oximetry 05/13/19 05/13/19 10:15 10:30 Temperature Pulse Rate 92 H 88 Respiratory 18 15 Rate Blood Pressure 198/106 183/97 O2 Sat by Pulse 97 96 Oximetry Constitutional: other (morbidly obese male, sedated on vent) Eyes: non-icteric Neck: other (extremely large in circumference) Effort: normal Ascultation: Bilateral: diminished breath sounds (secondary to body habitus) Cardiovascular: regular rate and rhythm (no mrg) Gastrointestinal: normoactive bowel sounds, other (obese) Integumentary: other (swelling of L hand due to blood pressure cuff and restrain ts, with non-infected appearing blister on thumb) Extremities: other (1+ generalized edema) Neurologic: unable to assess Psychiatric: other (unable to assess) CBC and BMP: 05/12/19 04:45 05/12/19 04:45 ABG, PT/INR, D-dimer: ABG POC ABG pH 7.284 (7.35-7.45) L 05/12/19 11:14 ABG pH 7.288 pH Units (7.350-7.450) L 05/13/19 04:30 POC ABG pCO2 67.8 (35-45) H 05/12/19 11:14 ABG pCO2 65.9 mm Hg 05/13/19 04:30 ABG pO2 109.7 mm Hg (80.0-90.0) H 05/13/19 04:30 POC ABG HCO3 32.1 (22-26 mml/L) 05/12/19 11:14 POC ABG Total CO2 34 (23-27mmol/L) 05/12/19 11:14 POC ABG O2 Sat 70 05/12/19 11:14 ABG O2 Saturation 97.5 % (95.0-99.0) 05/13/19 04:30 PT/INR, D-dimer PT 15.4 Sec. (12.2-14.9) H 05/01/19 Unknown INR 1.23 (0.87-1.13) H 05/01/19 Unknown Abnormal lab findings: Abnormal Labs 05/01/19 05/01/19 05/01/19 17:50 19:26 22:36 WBC RBC Hgb Hct MCV MCH MCHC RDW Lymph % (Auto) [place] % (Auto) Lymph # [place] # Seg Neutrophils % Seg Neutrophils # PT INR APTT POC ABG pH 7.272 L 7.331 L ABG pH POC ABG pCO2 52.8 H POC ABG pO2 ABG pO2 ABG HCO3 ABG O2 Saturation ABG Base Excess ABG Hemoglobin Oxyhemoglobin Sodium 136 L Potassium 6.5 H* Chloride 97.2 L Carbon Dioxide BUN 60 H Creatinine Glucose 113 H POC Glucose Uric Acid Calcium Phosphorus Magnesium 2.40 H AST 139 H ALT 154 H Total Creatine Kinase CK-MB (CK-2) Troponin T NT-Pro-B Natriuret Pep Total Protein Albumin 3.8 L Triglycerides HDL Cholesterol Urine WBC (Auto) Urine Creatinine Urine Total Protein 05/01/19 05/01/19 05/01/19 Unknown Unknown Unknown WBC 16.1 H RBC Hgb Hct MCV MCH MCHC RDW 17.2 H Lymph % (Auto) [place] % (Auto) 9.6 H Lymph # [place] # 1.5 H Seg Neutrophils % 73.0 H Seg Neutrophils # 11.7 H PT 15.4 H INR 1.23 H APTT 22.7 L POC ABG pH ABG pH POC ABG pCO2 POC ABG pO2 ABG pO2 ABG HCO3 ABG O2 Saturation ABG Base Excess ABG Hemoglobin Oxyhemoglobin Sodium Potassium Chloride Carbon Dioxide BUN Creatinine Glucose POC Glucose Uric Acid Calcium Phosphorus Magnesium AST ALT Total Creatine Kinase CK-MB (CK-2) Troponin T NT-Pro-B Natriuret Pep 6831 H Total Protein Albumin Triglycerides HDL Cholesterol Urine WBC (Auto) Urine Creatinine Urine Total Protein 05/01/19 05/02/19 05/02/19 Unknown 00:06 00:06 WBC RBC Hgb Hct MCV MCH MCHC RDW Lymph % (Auto) [place] % (Auto) Lymph # [place] # Seg Neutrophils % Seg Neutrophils # PT INR APTT POC ABG pH ABG pH POC ABG pCO2 POC ABG pO2 ABG pO2 ABG HCO3 ABG O2 Saturation ABG Base Excess ABG Hemoglobin Oxyhemoglobin Sodium Potassium Chloride Carbon Dioxide BUN Creatinine Glucose POC Glucose Uric Acid Calcium Phosphorus 4.90 H Magnesium AST ALT Total Creatine Kinase 226 H CK-MB (CK-2) 5.7 H Troponin T 0.044 H NT-Pro-B Natriuret Pep Total Protein Albumin Triglycerides 182 H HDL Cholesterol 18 L Urine WBC (Auto) Urine Creatinine Urine Total Protein 05/02/19 05/02/19 05/02/19 02:08 04:40 04:41 WBC 17.6 H RBC Hgb Hct MCV MCH 27 L MCHC RDW 17.4 H Lymph % (Auto) 10.2 L [place] % (Auto) 11.0 H Lymph # [place] # 1.9 H Seg Neutrophils % 78.0 H Seg Neutrophils # 13.8 H PT INR APTT POC ABG pH ABG pH POC ABG pCO2 46.8 H POC ABG pO2 63 L ABG pO2 ABG HCO3 ABG O2 Saturation ABG Base Excess ABG Hemoglobin Oxyhemoglobin Sodium Potassium Chloride 96.3 L Carbon Dioxide BUN 63 H Creatinine 1.7 H Glucose POC Glucose Uric Acid Calcium Phosphorus Magnesium AST ALT Total Creatine Kinase CK-MB (CK-2) Troponin T NT-Pro-B Natriuret Pep Total Protein Albumin Triglycerides HDL Cholesterol Urine WBC (Auto) Urine Creatinine Urine Total Protein 05/02/19 05/02/19 05/02/19 04:41 04:41 16:05 WBC RBC Hgb Hct MCV MCH MCHC RDW Lymph % (Auto) [place] % (Auto) Lymph # [place] # Seg Neutrophils % Seg Neutrophils # PT INR APTT POC ABG pH ABG pH POC ABG pCO2 POC ABG pO2 ABG pO2 66.6 L ABG HCO3 31.9 H ABG O2 Saturation 92.5 L ABG Base Excess 5.8 H ABG Hemoglobin 13.3 L Oxyhemoglobin 90.6 L Sodium Potassium Chloride 97.2 L Carbon Dioxide BUN 61 H Creatinine 1.8 H Glucose POC Glucose Uric Acid Calcium Phosphorus Magnesium AST ALT Total Creatine Kinase CK-MB (CK-2) 5.2 H Troponin T 0.067 H D NT-Pro-B Natriuret Pep Total Protein Albumin Triglycerides HDL Cholesterol Urine WBC (Auto) Urine Creatinine Urine Total Protein 05/02/19 05/03/19 05/03/19 20:39 04:35 05:05 WBC 11.8 H RBC Hgb Hct MCV MCH 27 L MCHC 31 L RDW 17.2 H Lymph % (Auto) [place] % (Auto) Lymph # [place] # Seg Neutrophils % Seg Neutrophils # PT INR APTT POC ABG pH ABG pH POC ABG pCO2 53.6 H 54.0 H POC ABG pO2 55 L 63 L ABG pO2 ABG HCO3 ABG O2 Saturation ABG Base Excess ABG Hemoglobin Oxyhemoglobin Sodium Potassium Chloride Carbon Dioxide BUN Creatinine Glucose POC Glucose Uric Acid Calcium Phosphorus Magnesium AST ALT Total Creatine Kinase CK-MB (CK-2) Troponin T NT-Pro-B Natriuret Pep Total Protein Albumin Triglycerides HDL Cholesterol Urine WBC (Auto) Urine Creatinine Urine Total Protein 05/03/19 05/03/19 05/03/19 05:05 10:55 16:48 WBC RBC Hgb Hct MCV MCH MCHC RDW Lymph % (Auto) [place] % (Auto) Lymph # [place] # Seg Neutrophils % Seg Neutrophils # PT INR APTT POC ABG pH 7.604 H ABG pH POC ABG pCO2 POC ABG pO2 58 L ABG pO2 ABG HCO3 ABG O2 Saturation ABG Base Excess ABG Hemoglobin Oxyhemoglobin Sodium Potassium Chloride Carbon Dioxide BUN 52 H Creatinine 1.9 H Glucose 103 H POC Glucose Uric Acid Calcium Phosphorus Magnesium AST ALT Total Creatine Kinase CK-MB (CK-2) Troponin T NT-Pro-B Natriuret Pep Total Protein Albumin Triglycerides HDL Cholesterol Urine WBC (Auto) 33.0 H Urine Creatinine Urine Total Protein 05/04/19 05/04/19 05/04/19 04:49 06:50 06:50 WBC 16.0 H RBC Hgb Hct MCV MCH 27 L MCHC 31 L RDW 17.8 H Lymph % (Auto) [place] % (Auto) Lymph # [place] # Seg Neutrophils % Seg Neutrophils # PT INR APTT POC ABG pH 7.273 L ABG pH POC ABG pCO2 POC ABG pO2 ABG pO2 ABG HCO3 ABG O2 Saturation ABG Base Excess ABG Hemoglobin Oxyhemoglobin Sodium 148 H Potassium 5.5 H Chloride Carbon Dioxide BUN 53 H Creatinine 3.3 H D Glucose 106 H POC Glucose Uric Acid Calcium 8.3 L Phosphorus Magnesium AST ALT Total Creatine Kinase CK-MB (CK-2) Troponin T NT-Pro-B Natriuret Pep Total Protein Albumin Triglycerides HDL Cholesterol Urine WBC (Auto) Urine Creatinine Urine Total Protein 05/05/19 05/05/19 05/05/19 00:05 04:30 05:00 WBC RBC Hgb Hct MCV MCH MCHC RDW Lymph % (Auto) [place] % (Auto) Lymph # [place] # Seg Neutrophils % Seg Neutrophils # PT INR APTT POC ABG pH 7.225 L ABG pH POC ABG pCO2 > 70 H POC ABG pO2 ABG pO2 ABG HCO3 ABG O2 Saturation ABG Base Excess ABG Hemoglobin Oxyhemoglobin Sodium 151 H Potassium 5.1 H Chloride Carbon Dioxide BUN 64 H Creatinine 3.5 H Glucose 117 H POC Glucose 141 H Uric Acid Calcium 7.5 L Phosphorus Magnesium AST 93 H ALT 65 H Total Creatine Kinase CK-MB (CK-2) Troponin T NT-Pro-B Natriuret Pep Total Protein Albumin 2.9 L Triglycerides HDL Cholesterol Urine WBC (Auto) Urine Creatinine Urine Total Protein 05/05/19 05/05/19 05/05/19 05:00 12:02 17:46 WBC 12.0 H RBC Hgb 11.3 L Hct MCV MCH 27 L MCHC 30 L RDW 18.4 H Lymph % (Auto) 7.9 L [place] % (Auto) 10.2 H Lymph # 1.0 L [place] # 1.2 H Seg Neutrophils % 80.8 H Seg Neutrophils # 9.7 H PT INR APTT POC ABG pH ABG pH POC ABG pCO2 POC ABG pO2 ABG pO2 ABG HCO3 ABG O2 Saturation ABG Base Excess ABG Hemoglobin Oxyhemoglobin Sodium Potassium Chloride Carbon Dioxide BUN Creatinine Glucose POC Glucose 125 H 112 H Uric Acid Calcium Phosphorus Magnesium AST ALT Total Creatine Kinase CK-MB (CK-2) Troponin T NT-Pro-B Natriuret Pep Total Protein Albumin Triglycerides HDL Cholesterol Urine WBC (Auto) Urine Creatinine Urine Total Protein 05/05/19 05/06/19 05/06/19 23:42 03:58 04:45 WBC 11.4 H RBC Hgb 10.7 L Hct 34.2 L MCV MCH 27 L MCHC 31 L RDW 16.9 H Lymph % (Auto) [place] % (Auto) Lymph # [place] # Seg Neutrophils % Seg Neutrophils # PT INR APTT POC ABG pH ABG pH POC ABG pCO2 62.4 H POC ABG pO2 111 H ABG pO2 ABG HCO3 ABG O2 Saturation ABG Base Excess ABG Hemoglobin Oxyhemoglobin Sodium Potassium Chloride Carbon Dioxide BUN Creatinine Glucose POC Glucose 128 H Uric Acid Calcium Phosphorus Magnesium AST ALT Total Creatine Kinase CK-MB (CK-2) Troponin T NT-Pro-B Natriuret Pep Total Protein Albumin Triglycerides HDL Cholesterol Urine WBC (Auto) Urine Creatinine Urine Total Protein 05/06/19 05/06/19 05/06/19 04:45 05:33 12:30 WBC RBC Hgb Hct MCV MCH MCHC RDW Lymph % (Auto) [place] % (Auto) Lymph # [place] # Seg Neutrophils % Seg Neutrophils # PT INR APTT POC ABG pH ABG pH POC ABG pCO2 POC ABG pO2 ABG pO2 ABG HCO3 ABG O2 Saturation ABG Base Excess ABG Hemoglobin Oxyhemoglobin Sodium 149 H Potassium Chloride Carbon Dioxide 31 H BUN 67 H Creatinine 3.2 H Glucose 125 H POC Glucose 117 H 116 H Uric Acid Calcium 7.5 L Phosphorus Magnesium AST ALT Total Creatine Kinase CK-MB (CK-2) Troponin T NT-Pro-B Natriuret Pep Total Protein Albumin Triglycerides HDL Cholesterol Urine WBC (Auto) Urine Creatinine Urine Total Protein 05/06/19 05/06/19 05/07/19 18:34 23:16 05:22 WBC RBC Hgb Hct MCV MCH MCHC RDW Lymph % (Auto) [place] % (Auto) Lymph # [place] # Seg Neutrophils % Seg Neutrophils # PT INR APTT POC ABG pH ABG pH POC ABG pCO2 POC ABG pO2 ABG pO2 ABG HCO3 ABG O2 Saturation ABG Base Excess ABG Hemoglobin Oxyhemoglobin Sodium Potassium Chloride Carbon Dioxide BUN Creatinine Glucose POC Glucose 128 H 143 H 166 H Uric Acid Calcium Phosphorus Magnesium AST ALT Total Creatine Kinase CK-MB (CK-2) Troponin T NT-Pro-B Natriuret Pep Total Protein Albumin Triglycerides HDL Cholesterol Urine WBC (Auto) Urine Creatinine Urine Total Protein 05/07/19 05/07/19 05/07/19 06:33 07:03 09:35 WBC RBC Hgb Hct MCV MCH MCHC RDW Lymph % (Auto) [place] % (Auto) Lymph # [place] # Seg Neutrophils % Seg Neutrophils # PT INR APTT POC ABG pH 7.263 L 7.288 L ABG pH POC ABG pCO2 POC ABG pO2 51 L 56 L ABG pO2 ABG HCO3 ABG O2 Saturation ABG Base Excess ABG Hemoglobin Oxyhemoglobin Sodium Potassium Chloride Carbon Dioxide BUN 76 H Creatinine 3.2 H Glucose 147 H POC Glucose Uric Acid Calcium 7.9 L Phosphorus Magnesium AST ALT Total Creatine Kinase CK-MB (CK-2) Troponin T NT-Pro-B Natriuret Pep Total Protein Albumin Triglycerides HDL Cholesterol Urine WBC (Auto) Urine Creatinine Urine Total Protein 05/07/19 05/07/19 05/07/19 09:35 12:17 13:45 WBC 13.4 H RBC Hgb 11.6 L Hct MCV MCH 27 L MCHC 31 L RDW 17.5 H Lymph % (Auto) [place] % (Auto) Lymph # [place] # Seg Neutrophils % Seg Neutrophils # PT INR APTT POC ABG pH ABG pH POC ABG pCO2 POC ABG pO2 ABG pO2 ABG HCO3 ABG O2 Saturation ABG Base Excess ABG Hemoglobin Oxyhemoglobin Sodium Potassium Chloride Carbon Dioxide BUN Creatinine Glucose POC Glucose 130 H Uric Acid 18.0 H Calcium Phosphorus Magnesium AST ALT Total Creatine Kinase CK-MB (CK-2) Troponin T NT-Pro-B Natriuret Pep Total Protein Albumin Triglycerides HDL Cholesterol Urine WBC (Auto) Urine Creatinine Urine Total Protein 05/07/19 05/07/19 05/08/19 17:39 22:40 05:06 WBC RBC Hgb Hct MCV MCH MCHC RDW Lymph % (Auto) [place] % (Auto) Lymph # [place] # Seg Neutrophils % Seg Neutrophils # PT INR APTT POC ABG pH ABG pH POC ABG pCO2 POC ABG pO2 ABG pO2 ABG HCO3 ABG O2 Saturation ABG Base Excess ABG Hemoglobin Oxyhemoglobin Sodium Potassium Chloride Carbon Dioxide BUN Creatinine Glucose POC Glucose 116 H 148 H Uric Acid Calcium Phosphorus Magnesium AST ALT Total Creatine Kinase CK-MB (CK-2) Troponin T NT-Pro-B Natriuret Pep Total Protein Albumin Triglycerides HDL Cholesterol Urine WBC (Auto) Urine Creatinine 292.8 H Urine Total Protein 269 H 05/08/19 05/08/19 05/08/19 05:32 11:28 13:48 WBC RBC Hgb Hct MCV MCH MCHC RDW Lymph % (Auto) [place] % (Auto) Lymph # [place] # Seg Neutrophils % Seg Neutrophils # PT INR APTT POC ABG pH ABG pH POC ABG pCO2 45.4 H POC ABG pO2 64 L ABG pO2 ABG HCO3 ABG O2 Saturation ABG Base Excess ABG Hemoglobin Oxyhemoglobin Sodium Potassium Chloride Carbon Dioxide BUN 73 H Creatinine 2.7 H Glucose 127 H POC Glucose 107 H Uric Acid Calcium 7.6 L Phosphorus Magnesium AST ALT Total Creatine Kinase CK-MB (CK-2) Troponin T NT-Pro-B Natriuret Pep Total Protein Albumin Triglycerides HDL Cholesterol Urine WBC (Auto) Urine Creatinine Urine Total Protein 05/08/19 05/09/19 05/09/19 17:48 04:50 04:53 WBC RBC 3.07 L Hgb 8.5 L D Hct 29.3 L D MCV 96 H MCH MCHC 29 L RDW 18.1 H Lymph % (Auto) [place] % (Auto) Lymph # [place] # Seg Neutrophils % Seg Neutrophils # PT INR APTT POC ABG pH 7.316 L ABG pH POC ABG pCO2 66.0 H POC ABG pO2 69 L ABG pO2 ABG HCO3 ABG O2 Saturation ABG Base Excess ABG Hemoglobin Oxyhemoglobin Sodium Potassium Chloride Carbon Dioxide BUN Creatinine Glucose POC Glucose 155 H Uric Acid Calcium Phosphorus Magnesium AST ALT Total Creatine Kinase CK-MB (CK-2) Troponin T NT-Pro-B Natriuret Pep Total Protein Albumin Triglycerides HDL Cholesterol Urine WBC (Auto) Urine Creatinine Urine Total Protein 05/09/19 05/09/19 05/09/19 05:46 07:24 12:10 WBC RBC Hgb Hct MCV MCH MCHC RDW Lymph % (Auto) [place] % (Auto) Lymph # [place] # Seg Neutrophils % Seg Neutrophils # PT INR APTT POC ABG pH ABG pH POC ABG pCO2 POC ABG pO2 ABG pO2 ABG HCO3 ABG O2 Saturation ABG Base Excess ABG Hemoglobin Oxyhemoglobin Sodium Potassium Chloride Carbon Dioxide BUN 73 H Creatinine 2.4 H Glucose 153 H POC Glucose 123 H 148 H Uric Acid Calcium 8.2 L Phosphorus Magnesium AST 45 H ALT Total Creatine Kinase CK-MB (CK-2) Troponin T NT-Pro-B Natriuret Pep Total Protein 6.0 L Albumin 1.9 L Triglycerides HDL Cholesterol Urine WBC (Auto) Urine Creatinine Urine Total Protein 05/09/19 05/09/19 05/10/19 18:23 23:26 04:52 WBC RBC Hgb Hct MCV MCH MCHC RDW Lymph % (Auto) [place] % (Auto) Lymph # [place] # Seg Neutrophils % Seg Neutrophils # PT INR APTT POC ABG pH 7.305 L ABG pH POC ABG pCO2 62.6 H POC ABG pO2 ABG pO2 ABG HCO3 ABG O2 Saturation ABG Base Excess ABG Hemoglobin Oxyhemoglobin Sodium Potassium Chloride Carbon Dioxide BUN Creatinine Glucose POC Glucose 147 H 121 H Uric Acid Calcium Phosphorus Magnesium AST ALT Total Creatine Kinase CK-MB (CK-2) Troponin T NT-Pro-B Natriuret Pep Total Protein Albumin Triglycerides HDL Cholesterol Urine WBC (Auto) Urine Creatinine Urine Total Protein 05/10/19 05/10/19 05/10/19 05:00 05:00 05:50 WBC RBC Hgb 10.3 L Hct 33.7 L MCV MCH 27 L MCHC 31 L RDW 17.0 H Lymph % (Auto) [place] % (Auto) Lymph # [place] # Seg Neutrophils % Seg Neutrophils # PT INR APTT POC ABG pH ABG pH POC ABG pCO2 POC ABG pO2 ABG pO2 ABG HCO3 ABG O2 Saturation ABG Base Excess ABG Hemoglobin Oxyhemoglobin Sodium 147 H Potassium Chloride Carbon Dioxide BUN 70 H Creatinine 2.6 H Glucose 155 H POC Glucose 158 H Uric Acid Calcium 8.2 L Phosphorus Magnesium AST ALT Total Creatine Kinase CK-MB (CK-2) Troponin T NT-Pro-B Natriuret Pep Total Protein 6.1 L Albumin 2.5 L Triglycerides HDL Cholesterol Urine WBC (Auto) Urine Creatinine Urine Total Protein 05/10/19 05/11/19 05/11/19 13:14 07:26 11:40 WBC RBC Hgb Hct MCV MCH MCHC RDW Lymph % (Auto) [place] % (Auto) Lymph # [place] # Seg Neutrophils % Seg Neutrophils # PT INR APTT POC ABG pH ABG pH POC ABG pCO2 48.0 H POC ABG pO2 58 L ABG pO2 ABG HCO3 ABG O2 Saturation ABG Base Excess ABG Hemoglobin Oxyhemoglobin Sodium 147 H Potassium Chloride 107.2 H Carbon Dioxide BUN 67 H Creatinine 2.6 H Glucose 121 H POC Glucose 159 H Uric Acid Calcium Phosphorus Magnesium AST ALT Total Creatine Kinase CK-MB (CK-2) Troponin T NT-Pro-B Natriuret Pep Total Protein Albumin Triglycerides HDL Cholesterol Urine WBC (Auto) Urine Creatinine Urine Total Protein 05/11/19 05/11/19 05/12/19 18:13 23:46 04:40 WBC RBC Hgb Hct MCV MCH MCHC RDW Lymph % (Auto) [place] % (Auto) Lymph # [place] # Seg Neutrophils % Seg Neutrophils # PT INR APTT POC ABG pH ABG pH 7.264 L POC ABG pCO2 POC ABG pO2 ABG pO2 66.8 L ABG HCO3 31.0 H ABG O2 Saturation 92.0 L ABG Base Excess ABG Hemoglobin 10.3 L Oxyhemoglobin 90.1 L Sodium Potassium Chloride Carbon Dioxide BUN Creatinine Glucose POC Glucose 120 H 121 H Uric Acid Calcium Phosphorus Magnesium AST ALT Total Creatine Kinase CK-MB (CK-2) Troponin T NT-Pro-B Natriuret Pep Total Protein Albumin Triglycerides HDL Cholesterol Urine WBC (Auto) Urine Creatinine Urine Total Protein 05/12/19 05/12/19 05/12/19 04:45 04:45 11:14 WBC RBC Hgb 10.2 L Hct 32.4 L MCV MCH MCHC 31 L RDW 17.2 H Lymph % (Auto) [place] % (Auto) Lymph # [place] # Seg Neutrophils % Seg Neutrophils # PT INR APTT POC ABG pH 7.284 L ABG pH POC ABG pCO2 67.8 H POC ABG pO2 ABG pO2 ABG HCO3 ABG O2 Saturation ABG Base Excess ABG Hemoglobin Oxyhemoglobin Sodium Potassium Chloride Carbon Dioxide BUN 63 H Creatinine 2.4 H Glucose 110 H POC Glucose Uric Acid Calcium Phosphorus Magnesium AST ALT Total Creatine Kinase CK-MB (CK-2) Troponin T NT-Pro-B Natriuret Pep Total Protein Albumin Triglycerides HDL Cholesterol Urine WBC (Auto) Urine Creatinine Urine Total Protein 05/12/19 05/12/19 05/13/19 11:44 23:11 04:30 WBC RBC Hgb Hct MCV MCH MCHC RDW Lymph % (Auto) [place] % (Auto) Lymph # [place] # Seg Neutrophils % Seg Neutrophils # PT INR APTT POC ABG pH ABG pH 7.288 L POC ABG pCO2 POC ABG pO2 ABG pO2 109.7 H ABG HCO3 30.9 H ABG O2 Saturation ABG Base Excess 3.2 H ABG Hemoglobin 9.6 L Oxyhemoglobin Sodium Potassium Chloride Carbon Dioxide BUN Creatinine Glucose POC Glucose 126 H 147 H Uric Acid Calcium Phosphorus Magnesium AST ALT Total Creatine Kinase CK-MB (CK-2) Troponin T NT-Pro-B Natriuret Pep Total Protein Albumin Triglycerides HDL Cholesterol Urine WBC (Auto) Urine Creatinine Urine Total Protein 05/13/19 06:27 WBC RBC Hgb Hct MCV MCH MCHC RDW Lymph % (Auto) [place] % (Auto) Lymph # [place] # Seg Neutrophils % Seg Neutrophils # PT INR APTT POC ABG pH ABG pH POC ABG pCO2 POC ABG pO2 ABG pO2 ABG HCO3 ABG O2 Saturation ABG Base Excess ABG Hemoglobin Oxyhemoglobin Sodium Potassium Chloride Carbon Dioxide BUN Creatinine Glucose POC Glucose 113 H Uric Acid Calcium Phosphorus Magnesium AST ALT Total Creatine Kinase CK-MB (CK-2) Troponin T NT-Pro-B Natriuret Pep Total Protein Albumin Triglycerides HDL Cholesterol Urine WBC (Auto) Urine Creatinine Urine Total Protein
--- NOTE | 2019-05-13 12:40 | Progress Note ---
Assessment and Plan Cultures: Blood cultures 05/11/19: no growth thus far Sputum culture 05/11/19: no growth thus far urine culture: no growth resp culture: no growth A/P: 34-year-old male with obesity admitted with: #Fever, SIRS: Patient was afebrile for the first 2 days of hospitalization, then he developed a fever of 101.2F. ?aspiration related. Apparently was using CPAP. Now febrile again, ?UTI. UA showed pyuria, had indwelling Berkowitz which was removed. Urine culture with no growth. #Acute hypoxic hypercapneic respiratory failure, possibly obesity hypoventil ation syndrome: on the vent. Pulmonary managing. #Morbid obesity #CARLA: creatinine elevated. dose abx accordingly. #Elevated LFTs: RUQ US showed fatty liver, small GB sludge. Improving. #Acute encephalopathy with ?seizure activity: persistent fevers. Agree with possible meningitis coverage Recs: Fevers resolving with addition of Flagyl. Continue to monitor on current regimen. continue empiric meningitis coverage with Ceftriaxone, Vancomycin Added metronidazole due to fevers and concern for previous aspiration GTalita Bearden MD [facility] ([facility] M: [phone] O: [phone] F: [phone] Subjective Date of service: 05/13/19 Principal diagnosis: HF; acute hypoxemic resp failure, SIRS, CARLA Interval history: Fevers resolved, normal white count. Objective - Exam Narrative Exam: Constitutional: sedated, intubated. Morbid obesity Head, Ears, Nose: Normocephalic, atraumatic. External ears, nose normal Eyes: Conjunctivae/corneas clear. No icterus. No ptosis. Neck: intubated Oral: intubated Cardiovascular: S1, S2 normal. Respiratory: Good air entry, clear to auscultation bilaterally GI: Soft, non-tender; bowel sounds normal. No peritoneal signs Musculoskeletal: No pedal edema, no cyanosis. Skin: No rash or abscess Hem/Lymphatic: No palpable cervical or supraclavicular nodes. No lymphangitis Psych: no agitation Neurological: sedated, intubated, on vent - Constitutional Vitals: Vital Signs Temp Pulse Resp BP Pulse Ox 99.1 F 89 23 171/80 94 05/13/19 12:00 05/13/19 12:00 05/13/19 12:00 05/13/19 12:00 05/13/19 12:00 Temperature -Last 24 Hours Temperature 99.1 F Temperature 98.1 F Temperature 98.8 F Temperature 98.8 F Temperature 98.9 F Temperature 98.8 F Temperature 99.1 F - Labs CBC & Chem 7: 05/12/19 04:45 05/12/19 04:45 Labs: Abnormal lab results 05/12/19 05/13/19 05/13/19 Range/Units 23:11 04:30 06:27 ABG pH 7.288 L (7.350-7.450) pH Units ABG pO2 109.7 H (80.0-90.0) mm Hg ABG HCO3 30.9 H (20.0-26.0) mmol/L ABG Base Excess 3.2 H (-2.0-3.0) mmol/L ABG Hemoglobin 9.6 L (14.0-18.0) gm/dl POC Glucose 147 H 113 H (70-105) 05/13/19 Range/Units 11:58 ABG pH (7.350-7.450) pH Units ABG pO2 (80.0-90.0) mm Hg ABG HCO3 (20.0-26.0) mmol/L ABG Base Excess (-2.0-3.0) mmol/L ABG Hemoglobin (14.0-18.0) gm/dl POC Glucose 130 H (70-105)
--- NOTE | 2019-05-13 13:12 | Progress Note ---
Assessment and Plan # Acute kidney injury: creatinine remains higher than presumed baseline of 1.9 on 05/03/2019, stable at 2.4, no labs today Suspect tubular injury in setting of sepsis, respiratory failure, hypotension. S/p diuresis on 05/09 - continue supportive measures, appreciate pulm and ID input - avoid nephrotoxins - diuresis prn per pulm, now off florinef. Would ideally like to avoid over diuresis due to risk to renal tubule recovery, no indication for diuretic today from renal perspective - previous studies reviewed, will need repeat ultrasound renal, ordered for today - no indication for renal replacement therapy - follow vanc levels # Hypernatremia: sodium to 145 most recently - now off florinef - continue free water flushes with TF # HTN: BP reasonable, continue current management # Anemia: hemoglobin stable to 10.2, pRBC transfusion prn # Encephalopathy, seizure disorder, hypoxic respiratory failure, fever: ID and pulm following We'll continue to follow and make recommendation from renal standpoint for this critically ill patient; we appreciate the opportunity to assist in his care. Subjective Date of service: 05/13/19 Principal diagnosis: HF; acute hypoxemic resp failure, SIRS, CARLA Interval history: No acute events noted. Remains intubated and sedated. Objective - Exam Narrative Exam: General: No acute distress/ intubated and sedated HEENT: ET tube in place Neck: Supple Chest:coarse mechanical breath sounds, PRVC with FiO2 60% Heart: Regular rate and rhythm Abdomen: Soft nontender Extremity: no edema Psych: sedated Derm: No petechial rash - Vital Signs Vital signs: Vital Signs - 12hr 05/13/19 05/13/19 05/13/19 01:15 01:30 01:45 Temperature Pulse Rate 95 H 96 H 97 H Respiratory 19 20 20 Rate Blood Pressure 148/75 142/74 139/68 O2 Sat by Pulse 92 100 Oximetry 05/13/19 05/13/19 05/13/19 02:00 02:15 02:30 Temperature Pulse Rate 102 H 96 H 94 H Respiratory 19 20 20 Rate Blood Pressure 161/86 137/68 145/70 O2 Sat by Pulse 94 93 Oximetry 05/13/19 05/13/19 05/13/19 02:45 03:00 03:15 Temperature Pulse Rate 95 H 94 H 92 H Respiratory 16 20 21 Rate Blood Pressure 138/75 139/68 143/73 O2 Sat by Pulse 95 94 Oximetry 05/13/19 05/13/19 05/13/19 03:30 03:45 04:00 Temperature 98.8 F Pulse Rate 91 H 89 88 Respiratory 20 20 20 Rate Blood Pressure 137/70 140/69 137/71 O2 Sat by Pulse 94 94 99 Oximetry 05/13/19 05/13/19 05/13/19 04:15 04:22 04:30 Temperature 98.8 F Pulse Rate 88 89 93 H Respiratory 20 20 Rate Blood Pressure 133/70 133/70 149/82 O2 Sat by Pulse 96 94 Oximetry 05/13/19 05/13/19 05/13/19 04:45 05:00 05:15 Temperature Pulse Rate 90 89 92 H Respiratory 14 22 18 Rate Blood Pressure 135/69 126/58 146/71 O2 Sat by Pulse 100 93 92 Oximetry 05/13/19 05/13/19 05/13/19 05:30 05:45 06:00 Temperature Pulse Rate 94 H 95 H 95 H Respiratory 11 L 22 14 Rate Blood Pressure 145/79 146/73 154/82 O2 Sat by Pulse Oximetry 05/13/19 05/13/19 05/13/19 06:15 06:30 06:45 Temperature Pulse Rate 97 H 91 H 90 Respiratory 15 23 17 Rate Blood Pressure 140/73 148/73 141/74 O2 Sat by Pulse 93 99 93 Oximetry 05/13/19 05/13/19 05/13/19 07:00 07:15 07:30 Temperature Pulse Rate 90 92 H 94 H Respiratory 14 16 23 Rate Blood Pressure 144/68 143/71 130/79 O2 Sat by Pulse 93 92 92 Oximetry 05/13/19 05/13/19 05/13/19 07:34 07:45 08:00 Temperature 98.1 F Pulse Rate 92 H 100 H 104 H Respiratory 22 15 Rate Blood Pressure 130/79 175/95 219/114 O2 Sat by Pulse 95 95 94 Oximetry 05/13/19 05/13/19 05/13/19 08:14 08:15 08:30 Temperature Pulse Rate 105 H 104 H 107 H Respiratory 18 18 Rate Blood Pressure 212/107 197/104 186/87 O2 Sat by Pulse 96 97 Oximetry 05/13/19 05/13/19 05/13/19 08:45 09:00 09:01 Temperature Pulse Rate 103 H 97 H 96 H Respiratory 29 H 25 H Rate Blood Pressure 206/87 214/94 212/94 O2 Sat by Pulse 95 93 Oximetry 05/13/19 05/13/19 05/13/19 09:15 09:30 09:45 Temperature Pulse Rate 89 83 83 Respiratory 15 26 H 21 Rate Blood Pressure 180/89 171/84 163/81 O2 Sat by Pulse 92 93 Oximetry 05/13/19 05/13/19 05/13/19 10:00 10:15 10:30 Temperature Pulse Rate 84 92 H 88 Respiratory 16 18 15 Rate Blood Pressure 178/93 198/106 183/97 O2 Sat by Pulse 97 96 Oximetry 05/13/19 05/13/19 05/13/19 10:45 11:00 11:15 Temperature Pulse Rate 86 92 H 89 Respiratory 18 33 H 32 H Rate Blood Pressure 204/96 183/94 184/92 O2 Sat by Pulse 96 96 95 Oximetry 05/13/19 05/13/19 05/13/19 11:24 11:30 11:45 Temperature Pulse Rate 88 89 89 Respiratory 29 H 20 Rate Blood Pressure 184/92 174/88 160/82 O2 Sat by Pulse 96 95 93 Oximetry 05/13/19 12:00 Temperature 99.1 F Pulse Rate 89 Respiratory 23 Rate Blood Pressure 171/80 O2 Sat by Pulse 93 Oximetry - Lab 05/12/19 04:45 05/12/19 04:45 Most recent lab results ABG pH 7.288 pH Units (7.350-7.450) L 05/13/19 04:30 ABG pCO2 65.9 mm Hg 05/13/19 04:30 ABG pO2 109.7 mm Hg (80.0-90.0) H 05/13/19 04:30 ABG HCO3 30.9 mmol/L (20.0-26.0) H 05/13/19 04:30 ABG O2 Saturation 97.5 % (95.0-99.0) 05/13/19 04:30 Calcium 9.0 mg/dL (8.4-10.2) 05/12/19 04:45 Phosphorus 4.90 mg/dL (2.5-4.5) H 05/02/19 00:06 Magnesium 2.30 mg/dL (1.7-2.3) 05/02/19 00:06 Urine Creatinine 292.8 mg/dL (0.1-20.0) H 05/07/19 22:40 Urine Sodium 11 mmol/L 05/07/19 22:40 Urine Total Protein 269 mg/dL (5-11.8) H 05/07/19 22:40 Medications & Allergies - Medications Allergies/Adverse Reactions: Allergies No Known Allergies Allergy (Verified 05/01/19 20:27) Home Medications: Home Medications Medication Instructions Recorded Confirmed Last Taken Type No Known Home Medications [No 05/03/19 05/03/19 Unknown History Reported Home Medications] Active Medications: Generic Name Dose Route Start Last Admin Trade Name Freq PRN Reason Stop Dose Admin Acetaminophen 650 mg 05/01/19 22:46 05/11/19 19:46 Tylenol PO 650 mg Q4H PRN Administration Pain MILD(1-3)/Fever >100.5/FREEMAN Lipase/Protease/Amylase 1 each 05/10/19 11:[address] 10,500 Unit FEEDTUBE PRN PRN For Clogged Feeding Tube Dextrose 50 gm 05/01/19 20:24 D50w (25gm) Vial IV Q30MIN PRN Hypoglycemia Protocol Enoxaparin Sodium 40 mg 05/13/19 10:00 05/13/19 09:02 Enoxaparin SUB-Q 40 mg QDAY@1000 VICKEY Administration Famotidine 20 mg 05/12/19 22:00 05/13/19 09:02 Pepcid PO 20 mg BID VICKEY Administration Hydralazine HCl 20 mg 05/13/19 08:09 05/13/19 08:14 Apresoline IV 20 mg Q4HR PRN Administration Hypertension Hydrophilic Ointment 1 applic 05/01/19 21:14 Vaseline Lip Therapy TP Q2HR PRN Dry Lips Fentanyl Citrate 2,000 mcg in 100 mls @ 10.195 mls/hr 05/01/19 22:00 05/13/19 12:51 Fentanyl Drip Premix IV 2 mcg/kg/hr TITR VICKEY 20.39 mls/hr Administration Protocol 1 MCG/KG/HR Propofol 1,000 mg in 100 mls @ 7.011 mls/hr 05/03/19 04:00 05/13/19 11:18 Diprivan 10 Mg/Ml IV 15 mcg/kg/min TITR VICKEY 21.033 mls/hr Titration Protocol 5 MCG/KG/MIN Norepinephrine 4 mg in 250 mls @ 7.5 mls/hr 05/03/19 18:00 Levophed Drip 4 Mg/Ns 250 Ml IV TITR VICKEY Protocol 2 MCG/MIN Sodium Chloride 500 mls @ 10 mls/hr 05/06/19 15:00 Nacl 0.9% 500 Ml IV DIRECT VICKEY Ceftriaxone Sodium 2 gm in 100 mls @ 200 mls/hr 05/07/19 22:00 05/13/19 09:02 Rocephin/Ns 2 Gm/100 Ml IV 200 mls/hr Q12HR VICKEY Administration Protocol Metronidazole 500 mg in 100 mls @ 100 mls/hr 05/11/19 14:00 05/13/19 13:08 Flagyl 500 Mg/100 Ml IV 100 mls/hr Q8HR VICKEY Administration Protocol Vancomycin HCl 2,000 mg/ 540 mls @ 250 mls/hr 05/12/19 11:00 05/13/19 10:41 Sodium Chloride IV 250 mls/hr Q24HR VICKEY Administration Nicardipine HCl 50 mg/ Sodium 250 mls @ 25 mls/hr 05/13/19 10:00 Chloride IV TITR VICKEY Protocol 5 MG/HR Levetiracetam 750 mg 05/13/19 10:00 05/13/19 09:02 Keppra PO 750 mg BID VICKEY Administration Lorazepam 2 mg 05/06/19 06:22 05/10/19 16:17 Ativan IV 2 mg Q4H PRN Administration Seizures/AGITATION Metoprolol Tartrate 25 mg 05/02/19 04:00 05/13/19 09:01 Metoprolol PO 25 mg BID VICKEY Administration Multi-Ingred Cream/Lotion/Oil/Oint 1 applic 05/01/19 21:14 Artificial Tears Ophth Oint OU Q4HR PRN Dry Eye(s) Ondansetron HCl 4 mg 05/01/19 22:46 Zofran IV Q8H PRN Nausea And Vomiting Simple Syrup 15 ml 05/10/19 11:23 Simple Syrup FEEDTUBE PRN PRN Hypoglycemia Simple Syrup 30 ml 05/10/19 11:23 Simple Syrup FEEDTUBE PRN PRN Hypoglycemia Sodium Bicarbonate 325 mg 05/10/19 11:23 Sodium Bicarbonate FEEDTUBE PRN PRN For Clogged Feeding Tube Sodium Chloride 10 ml 05/02/19 10:00 05/13/19 09:03 Sodium Chloride Flush Syringe 10 Ml IV 10 ml BID VICKEY Administration Sodium Chloride 10 ml 05/01/19 22:46 05/05/19 02:28 Sodium Chloride Flush Syringe 10 Ml IV 10 ml PRN PRN Administration LINE FLUSH
[2019-05-13] MEDS: niCARdipine 50 MG in SODIUM CHLORIDE 0.9% 250ML 230 ML IV SCH ×2 (14:50→18:07)
--- NOTE | 2019-05-13 16:16 | Progress Note ---
Assessment and Plan Assessment and plan: 34-year-old man who is morbidly obese with unknown medical problem was brought to the emergency room with complaints of shortness of breath and difficulty sleeping. History is per the chart, nurse reported that his saturation dropped to 28%, heart rate in the 50s, she checked on them, he was cyanotic and was subsequently intubated and recieved 2 rounds of epinephrine. Cardiac arrest. * Discussed with pulmonary, Some improvement in saturation to the 90% range. Remains on 70% FIO2 and 20 PEEP * Diuresis held due to renal function worsening, appears to be improving today * still with fever * per ID empiric meningitis coverage with Ceftriaxone, Vancomycin * Flagyl discontinued * Acyclovir also added, renally adjusted- now discontinued * When feasible LP and possible MRI brain (though may be limited due to patient's weight) * 05/12/19- ETT exchanged due to hypoxia Blood cultures: no growth thus far Sputum culture: no growth thus far urine culture: no growth s/p Cardiac arrest Resuscitated cardiology consulted, following Acute hypoxic and hypercapenic respiratory failure on vent >96hrs Status post intubation, continue sedation, consulted pulmonary And input noted "continue to wean FiO2 for sats >88% and or PaO2 of greater than 55. Do not wean PEEP until FiO2 is a 50% or lower. Permissive hypercapnea is ok as long as pH is not lower than 7.2" Oxygen demand increased due to hypoxia, Pulmoanry adjusting vent but better today Obesity Hypoventilation syndrome Patient previously on LANDON Management at home but per discussion with family, was non complaint Sepsis- not present on admission -On abx, ID following. LP when able Acylovir stopped ?seizure activity -Meninigitis prophy -Neurology consult -EEG- read pending Acute CHF, new onset, Diurese with IV lasix held, monitor I/O, daily weights Cardiology following. Added beta-jenny, no TIM inhibitor secondary to renal insufficiency Hypertension malignant Start antihypertensive, monitor blood pressure IV hydralazine as needed for further control Acute kidney injury due to ATN begning to trend downwards Nephrology following and input noted. Berkowitz for strict I/Os Hyperkalemia-Resolved Passive congestive hepatic syndrome -LFT elevated but trending down -Noted Gallbladder sludge DVT prophylaxis with Lovenox Morbid obesity Full code status. Prognosis guarded Discussed with Mother and another family male member that came with the mom yesterday. All questions answered The high probability of a clinically significant, sudden or life threatening deterioration of the [cardiovascular, Pulmonary, renal, neurological] system(s) required my full and direct attention, intervention and personal management. The aggregate critical care time was [35] minutes. This time is in addition to time spent performing reported procedures but includes the following: [x] Data Review and interpretation [x] Patient assessment and monitoring of vital signs [x] Documentation [x] Medication orders and management History Interval history: Patient seen and examined, remains on full ventilatory support, FI02 needs improving some Hospitalist Physical - Physical exam Narrative exam: Gen: Not in acute distress, intubated, SEDATED no evidence of vent-patient dyschronny on vent, morbidly obese HEENT: Normocephalic, atraumatic, short and large neck circumference Neck: supple, no JVD Heart: S1 and S2 reg, no murmurs, rubs or gallop Lungs: Clear to auscultation bilaterally, no wheeze Abd: soft, NT, non distended, normal bowel sounds Ext:No edema, no cyanosis Neuro: Intubated, sedated - Constitutional Vitals: Temp Pulse Resp BP Pulse Ox 99.1 F 96 H 25 H 165/62 99 05/13/19 12:00 05/13/19 16:00 05/13/19 16:00 05/13/19 16:00 05/13/19 16:00 General appearance: Present: no acute distress Results - Labs CBC & Chem 7: 05/12/19 04:45 05/12/19 04:45 Labs: Laboratory Last Values WBC 10.0 K/mm3 (4.5-11.0) 05/12/19 04:45 RBC 3.70 M/mm3 (3.65-5.03) 05/12/19 04:45 Hgb 10.2 gm/dl (11.8-15.2) L 05/12/19 04:45 Hct 32.4 % (35.5-45.6) L 05/12/19 04:45 MCV 88 fl (84-94) 05/12/19 04:45 MCH 28 pg (28-32) 05/12/19 04:45 MCHC 31 % (32-34) L 05/12/19 04:45 RDW 17.2 % (13.2-15.2) H 05/12/19 04:45 Plt Count 233 K/mm3 (140-440) 05/12/19 04:45 Lymph % (Auto) 7.9 % (13.4-35.0) L 05/05/19 05:00 Pender % (Auto) 10.2 % (0.0-7.3) H 05/05/19 05:00 Eos % (Auto) 0.6 % (0.0-4.3) 05/05/19 05:00 Baso % (Auto) 0.5 % (0.0-1.8) 05/05/19 05:00 Lymph # 1.0 K/mm3 (1.2-5.4) L 05/05/19 05:00 Pender # 1.2 K/mm3 (0.0-0.8) H 05/05/19 05:00 Eos # 0.1 K/mm3 (0.0-0.4) 05/05/19 05:00 Baso # 0.1 K/mm3 (0.0-0.1) 05/05/19 05:00 Seg Neutrophils % 80.8 % (40.0-70.0) H 05/05/19 05:00 Seg Neutrophils # 9.7 K/mm3 (1.8-7.7) H 05/05/19 05:00 PT 15.4 Sec. (12.2-14.9) H 05/01/19 Unknown INR 1.23 (0.87-1.13) H 05/01/19 Unknown APTT 22.7 Sec. (24.2-36.6) L 05/01/19 Unknown POC ABG pH 7.284 (7.35-7.45) L 05/12/19 11:14 ABG pH 7.288 pH Units (7.350-7.450) L 05/13/19 04:30 POC ABG pCO2 67.8 (35-45) H 05/12/19 11:14 ABG pCO2 65.9 mm Hg 05/13/19 04:30 POC ABG pO2 58 (80-105) L 05/11/19 11:40 ABG pO2 109.7 mm Hg (80.0-90.0) H 05/13/19 04:30 POC ABG HCO3 32.1 (22-26 mml/L) 05/12/19 11:14 ABG HCO3 30.9 mmol/L (20.0-26.0) H 05/13/19 04:30 POC ABG Total CO2 34 (23-27mmol/L) 05/12/19 11:14 POC ABG O2 Sat 70 05/12/19 11:14 ABG O2 Saturation 97.5 % (95.0-99.0) 05/13/19 04:30 ABG O2 Content 13.1 (0.0-44) 05/13/19 04:30 POC ABG Base Excess 5 ((-2) - (+3)mmol/L) 05/12/19 11:14 ABG Base Excess 3.2 mmol/L (-2.0-3.0) H 05/13/19 04:30 ABG Hemoglobin 9.6 gm/dl (14.0-18.0) L 05/13/19 04:30 ABG Carboxyhemoglobin 1.5 % (0.0-5.0) 05/13/19 04:30 ABG Methemoglobin 0.5 % (0.0-1.5) 05/13/19 04:30 Oxyhemoglobin 95.6 % (95.0-99.0) 05/13/19 04:30 FiO2 70 % 05/13/19 04:30 Sodium 145 mmol/L (137-145) 05/12/19 04:45 Potassium 4.1 mmol/L (3.6-5.0) 05/12/19 04:45 Chloride 105.1 mmol/L (98-107) 05/12/19 04:45 Carbon Dioxide 28 mmol/L (22-30) 05/12/19 04:45 Anion Gap 16 mmol/L 05/12/19 04:45 BUN 63 mg/dL (9-20) H 05/12/19 04:45 Creatinine 2.4 mg/dL (0.8-1.5) H 05/12/19 04:45 Estimated GFR 38 ml/min 05/12/19 04:45 BUN/Creatinine Ratio 26 % 05/12/19 04:45 Glucose 110 mg/dL (75-100) H 05/12/19 04:45 POC Glucose 130 (70-105) H 05/13/19 11:58 Osmolality 327 Mosm/kg 05/07/19 13:45 Uric Acid 18.0 mg/dL (3.5-7.6) H 05/07/19 13:45 Calcium 9.0 mg/dL (8.4-10.2) 05/12/19 04:45 Phosphorus 4.90 mg/dL (2.5-4.5) H 05/02/19 00:06 Magnesium 2.30 mg/dL (1.7-2.3) 05/02/19 00:06 Total Bilirubin 0.20 mg/dL (0.1-1.2) 05/10/19 05:00 AST 34 units/L (5-40) 05/10/19 05:00 ALT 35 units/L (7-56) 05/10/19 05:00 Alkaline Phosphatase 45 units/L (35-129) 05/10/19 05:00 Total Creatine Kinase 131 units/L (55-170) 05/02/19 04:41 CK-MB (CK-2) 5.2 ng/mL (0.0-4.0) H 05/02/19 04:41 CK-MB (CK-2) Rel Index 3.9 (0-4) 05/02/19 04:41 Troponin T 0.067 ng/mL (0.00-0.029) H D 05/02/19 04:41 NT-Pro-B Natriuret Pep 6831 pg/mL (0-450) H 05/01/19 Unknown Total Protein 6.1 g/dL (6.3-8.2) L 05/10/19 05:00 Albumin 2.5 g/dL (3.9-5) L 05/10/19 05:00 Albumin/Globulin Ratio 0.7 % 05/10/19 05:00 Triglycerides 130 mg/dL (2-149) 05/13/19 06:30 Cholesterol 173 mg/dL (50-199) 05/02/19 00:06 LDL Cholesterol Direct 126 mg/dL (50-130) 05/02/19 00:06 HDL Cholesterol 18 mg/dL (40-59) L 05/02/19 00:06 Cholesterol/HDL Ratio 9.61 % 05/02/19 00:06 Procalcitonin 0.54 ng/mL (<0.15) 05/03/19 11:52 Urine Color Yellow (Yellow) 05/03/19 10:55 Urine Turbidity Turbid (Clear) 05/03/19 10:55 Urine pH 5.0 (5.0-7.0) 05/03/19 10:55 Ur Specific Climax 1.014 (1.003-1.030) 05/03/19 10:55 Urine Protein <15 mg/dl mg/dL (Negative) 05/03/19 10:55 Urine Glucose (UA) Neg mg/dL (Negative) 05/03/19 10:55 Urine Ketones Neg mg/dL (Negative) 05/03/19 10:55 Urine Blood Lg (Negative) 05/03/19 10:55 Urine Nitrite Neg (Negative) 05/03/19 10:55 Urine Bilirubin Neg (Negative) 05/03/19 10:55 Urine Urobilinogen < 2.0 mg/dL (<2.0) 05/03/19 10:55 Ur Leukocyte Esterase Mod (Negative) 05/03/19 10:55 Urine WBC (Auto) 33.0 /HPF (0.0-6.0) H 05/03/19 10:55 Urine RBC (Auto) 8.0 /HPF (0.0-6.0) 05/03/19 10:55 Urine Bacteria (Auto) 1+ /HPF (Negative) 05/03/19 10:55 Uric Acid Crystals 3+ 05/03/19 10:55 Urine Mucus Few /HPF 05/03/19 10:55 Urine Creatinine 292.8 mg/dL (0.1-20.0) H 05/07/19 22:40 Urine Sodium 11 mmol/L 05/07/19 22:40 Urine Total Protein 269 mg/dL (5-11.8) H 05/07/19 22:40 Random Vancomycin 5.8 ug/mL (0-40.0) 05/12/19 08:15 AMNA Screen Negative (Negative) 05/07/19 13:45 Hepatitis A IgM Ab Non-reactive (NonReactive) 05/07/19 13:45 Hep Bs Antigen Non-reactive (Negative) 05/07/19 13:45 Hep B Core IgM Ab Non-reactive (NonReactive) 05/07/19 13:45 Hepatitis C Antibody Non-reactive (NonReactive) 05/07/19 13:45 Active Medications - Current Medications Current Medications: Generic Name Dose Route Start Last Admin Trade Name Freq PRN Reason Stop Dose Admin Acetaminophen 650 mg 05/01/19 22:46 05/11/19 19:46 Tylenol PO 650 mg Q4H PRN Administration Pain MILD(1-3)/Fever >100.5/FREEMAN Lipase/Protease/Amylase 1 each 05/10/19 11:[address] 10,500 Unit FEEDTUBE PRN PRN For Clogged Feeding Tube Dextrose 50 gm 05/01/19 20:24 D50w (25gm) Vial IV Q30MIN PRN Hypoglycemia Protocol Enoxaparin Sodium 40 mg 05/13/19 10:00 05/13/19 09:02 Enoxaparin SUB-Q 40 mg QDAY@1000 VICKEY Administration Famotidine 20 mg 05/12/19 22:00 05/13/19 09:02 Pepcid PO 20 mg BID VICKEY Administration Hydralazine HCl 20 mg 05/13/19 08:09 05/13/19 14:12 Apresoline IV 20 mg Q4HR PRN Administration Hypertension Hydrophilic Ointment 1 applic 05/01/19 21:14 Vaseline Lip Therapy TP Q2HR PRN Dry Lips Fentanyl Citrate 2,000 mcg in 100 mls @ 10.195 mls/hr 05/01/19 22:00 05/13/19 12:51 Fentanyl Drip Premix IV 2 mcg/kg/hr TITR VICKEY 20.39 mls/hr Administration Protocol 1 MCG/KG/HR Propofol 1,000 mg in 100 mls @ 7.011 mls/hr 05/03/19 04:00 05/13/19 15:42 Diprivan 10 Mg/Ml IV 20 mcg/kg/min TITR VICKEY 28.044 mls/hr Titration Protocol 5 MCG/KG/MIN Norepinephrine 4 mg in 250 mls @ 7.5 mls/hr 05/03/19 18:00 Levophed Drip 4 Mg/Ns 250 Ml IV TITR VICKEY Protocol 2 MCG/MIN Sodium Chloride 500 mls @ 10 mls/hr 05/06/19 15:00 Nacl 0.9% 500 Ml IV DIRECT VICKEY Ceftriaxone Sodium 2 gm in 100 mls @ 200 mls/hr 05/07/19 22:00 05/13/19 09:02 Rocephin/Ns 2 Gm/100 Ml IV 200 mls/hr Q12HR VICKEY Administration Protocol Metronidazole 500 mg in 100 mls @ 100 mls/hr 05/11/19 14:00 05/13/19 13:08 Flagyl 500 Mg/100 Ml IV 100 mls/hr Q8HR VICKEY Administration Protocol Vancomycin HCl 2,000 mg/ 540 mls @ 250 mls/hr 05/12/19 11:00 05/13/19 10:41 Sodium Chloride IV 250 mls/hr Q24HR VICKEY Administration Nicardipine HCl 50 mg/ Sodium 250 mls @ 25 mls/hr 05/13/19 10:00 05/13/19 15:46 Chloride IV 12.5 mg/hr TITR VICKEY 62.5 mls/hr Titration Protocol 5 MG/HR Levetiracetam 750 mg 05/13/19 10:00 05/13/19 09:02 Keppra PO 750 mg BID VICKEY Administration Lorazepam 2 mg 05/06/19 06:22 05/10/19 16:17 Ativan IV 2 mg Q4H PRN Administration Seizures/AGITATION Metoprolol Tartrate 25 mg 05/02/19 04:00 05/13/19 09:01 Metoprolol PO 25 mg BID VICKEY Administration Multi-Ingred Cream/Lotion/Oil/Oint 1 applic 05/01/19 21:14 Artificial Tears Ophth Oint OU Q4HR PRN Dry Eye(s) Ondansetron HCl 4 mg 05/01/19 22:46 Zofran IV Q8H PRN Nausea And Vomiting Simple Syrup 15 ml 05/10/19 11:23 Simple Syrup FEEDTUBE PRN PRN Hypoglycemia Simple Syrup 30 ml 05/10/19 11:23 Simple Syrup FEEDTUBE PRN PRN Hypoglycemia Sodium Bicarbonate 325 mg 05/10/19 11:23 Sodium Bicarbonate FEEDTUBE PRN PRN For Clogged Feeding Tube Sodium Chloride 10 ml 05/02/19 10:00 05/13/19 09:03 Sodium Chloride Flush Syringe 10 Ml IV 10 ml BID VICKEY Administration Sodium Chloride 10 ml 05/01/19 22:46 05/05/19 02:28 Sodium Chloride Flush Syringe 10 Ml IV 10 ml PRN PRN Administration LINE FLUSH Nutrition/Malnutrition Assess - Dietary Evaluation Nutrition/Malnutrition Findings: Nutrition Notes Start: 05/04/19 12:54 Freq: Status: Active Protocol: Document 05/10/19 12:37 LM (Rec: 05/10/19 12:42 LM [email or web address]) Nutrition Notes Initial or Follow up Brief Note Current Diagnosis Acute Kidney Injury,Sepsis, Respiratory Failure Current Diet Nepro 1.8 at 60ml/hr Labs/Tests Na 147 BUN 70 Cr 2.6 Pertinent Medications Reviewed Height 6 ft 4 in Weight 227.5 kg [place] Body Weight (kg) 91.81 BMI 61.0 Weight Status Morbidly Obese Subjective/Other Information MD consult to adjust TF. Na elevated, will increase flush. Nutrition Intervention Nutrition Support: Nepro 1.8 at 50 ml/hr flush 300 ml q4h for hypernatremia flush 200 ml q4hr once hypernatremia resolves Follow-Up By: 05/14/19 Additional Comments F/U for TF tolerance, Na lab
[2019-05-14] MEDS: fentaNYL DRIP Premix 2,000 MCG/100 ML BAG IV SCH ×5 (01:45→22:42)
[2019-05-14 04:12] LABS: Hematocrit 27.9 % (35.5-45.6); Hemoglobin 9.3 gm/dl (11.8-15.2); Mean Corpuscular HGB Conc 33 % (32-34); Mean Corpuscular Volume 88 fl (84-94); Platelet Count 238 K/mm3 (140-440); Red Blood Count 3.16 M/mm3 (3.65-5.03); Red Cell Distribution Width 17.1 % (13.2-15.2)
[2019-05-14 04:34] LABS: Calcium 8.1 mg/dL (8.4-10.2)
[2019-05-14] MEDS: metroNIDAZOLE/NS 500 MG/100 ML 500 MG/100 ML BAG IV SCH ×3 (05:39→21:13)
[2019-05-14] MEDS: VANCOMYCIN 2,000 MG in SODIUM CHLORIDE 0.9% 500 ML 500 ML IV SCH (09:09)
[2019-05-14] MEDS: cefTRIAXone/NS 2 GM/100 ML 2 GM/100 ML BAG IV SCH ×2 (09:09→21:13)
[2019-05-14] MEDS: ENOXAPARIN 40 MG/0.4 ML INJ SUB-Q SCH (09:10)
[2019-05-14] MEDS: FAMOTIDINE 20 MG TAB PO SCH ×2 (09:10→21:13)
[2019-05-14] MEDS: levETIRAcetam 500 MG/5 ML ORAL LIQD PO SCH ×2 (09:10→21:11)
--- NOTE | 2019-05-14 09:49 | Progress Note ---
Assessment and Plan 34 y/o male with acute hypoxic, hypercapnic respiratory failure currently ventilated and sedated, now with persistent fevers and seizure. 1. Neuro: EEG shows no seizures. 2. Pulm: continue to wean FiO2 for sats >88% and or PaO2 of greater than 55. Do not wean PEEP until FiO2 is at 50% or lower. Permissive hypercapnea is ok as long as pH is not lower than 7.2 3. Renal: Cr improved to less than 3.0, making urine. Hold diuresis. Stop D5 as patient is tolerating tube feeds 4. Fever: Afebrile now the last 24 hours. 5. Day number of 13 of intubation. CCT 31 minutes. Subjective Date of service: 05/14/19 Principal diagnosis: HF; acute hypoxemic resp failure, SIRS, CARLA Interval history: BP was not controlled most of the day yesterday. Started on Labetalol and this has helped. No family at beside. Objective Vital Signs - 12hr 05/13/19 05/13/19 05/13/19 21:45 21:46 22:00 Temperature Pulse Rate 91 H 90 89 Pulse Rate [ From Monitor] Respiratory 22 22 Rate Blood Pressure 131/58 131/58 124/54 O2 Sat by Pulse 93 98 Oximetry 05/13/19 05/13/19 05/13/19 22:15 22:30 22:32 Temperature 99.1 F Pulse Rate 89 90 Pulse Rate [ From Monitor] Respiratory 16 22 Rate Blood Pressure 121/54 117/49 O2 Sat by Pulse 91 93 Oximetry 05/13/19 05/13/19 05/13/19 22:45 23:00 23:15 Temperature Pulse Rate 87 86 84 Pulse Rate [ From Monitor] Respiratory 23 22 21 Rate Blood Pressure 116/50 118/51 113/50 O2 Sat by Pulse 92 92 92 Oximetry 05/13/19 05/13/19 05/13/19 23:24 23:30 23:35 Temperature Pulse Rate 84 85 84 Pulse Rate [ From Monitor] Respiratory 22 19 Rate Blood Pressure 113/50 113/50 O2 Sat by Pulse 95 94 94 Oximetry 05/13/19 05/14/19 05/14/19 23:45 00:00 00:15 Temperature Pulse Rate 84 84 84 Pulse Rate [ 82 From Monitor] Respiratory 17 16 20 Rate Blood Pressure 113/48 115/48 111/47 O2 Sat by Pulse 93 93 93 Oximetry 05/14/19 05/14/19 05/14/19 00:30 00:45 01:00 Temperature Pulse Rate 84 84 84 Pulse Rate [ From Monitor] Respiratory 18 18 19 Rate Blood Pressure 110/46 113/48 112/46 O2 Sat by Pulse 94 93 93 Oximetry 05/14/19 05/14/19 05/14/19 01:15 01:30 01:45 Temperature Pulse Rate 82 81 82 Pulse Rate [ From Monitor] Respiratory 22 22 22 Rate Blood Pressure 113/51 112/47 111/48 O2 Sat by Pulse 93 94 94 Oximetry 05/14/19 05/14/19 05/14/19 02:00 02:15 02:30 Temperature Pulse Rate 82 83 84 Pulse Rate [ From Monitor] Respiratory 22 22 22 Rate Blood Pressure 109/47 109/44 111/48 O2 Sat by Pulse 94 94 95 Oximetry 05/14/19 05/14/19 05/14/19 02:45 03:00 03:01 Temperature 99.4 F Pulse Rate 82 81 Pulse Rate [ From Monitor] Respiratory 22 22 Rate Blood Pressure 111/47 109/48 O2 Sat by Pulse 94 95 Oximetry 05/14/19 05/14/19 05/14/19 03:15 03:31 03:45 Temperature Pulse Rate 83 87 84 Pulse Rate [ From Monitor] Respiratory 21 22 21 Rate Blood Pressure 109/48 109/48 109/48 O2 Sat by Pulse 97 96 97 Oximetry 05/14/19 05/14/19 05/14/19 04:00 04:14 04:15 Temperature Pulse Rate 85 84 83 Pulse Rate [ 85 From Monitor] Respiratory 22 22 Rate Blood Pressure 105/44 105/44 105/44 O2 Sat by Pulse 96 97 97 Oximetry 05/14/19 05/14/19 05/14/19 04:31 04:45 05:00 Temperature Pulse Rate 82 83 81 Pulse Rate [ From Monitor] Respiratory 22 22 22 Rate Blood Pressure 105/44 105/44 105/48 O2 Sat by Pulse 97 97 95 Oximetry 05/14/19 05/14/19 05/14/19 05:15 05:31 05:45 Temperature Pulse Rate 83 82 82 Pulse Rate [ From Monitor] Respiratory 23 22 22 Rate Blood Pressure 105/48 105/48 105/48 O2 Sat by Pulse 97 97 97 Oximetry 05/14/19 05/14/19 05/14/19 06:00 06:07 06:15 Temperature Pulse Rate 82 81 81 Pulse Rate [ From Monitor] Respiratory 22 22 Rate Blood Pressure 112/51 112/51 112/51 O2 Sat by Pulse 97 97 Oximetry 05/14/19 05/14/19 05/14/19 06:31 06:45 07:00 Temperature Pulse Rate 82 81 85 Pulse Rate [ From Monitor] Respiratory 22 22 22 Rate Blood Pressure 112/51 112/51 109/48 O2 Sat by Pulse 97 97 96 Oximetry 05/14/19 05/14/19 05/14/19 07:15 07:31 07:45 Temperature Pulse Rate 85 84 82 Pulse Rate [ From Monitor] Respiratory 22 22 21 Rate Blood Pressure 109/48 109/48 109/48 O2 Sat by Pulse 96 96 95 Oximetry 05/14/19 05/14/19 05/14/19 08:00 08:12 08:15 Temperature 98.6 F Pulse Rate 82 82 Pulse Rate [ 82 From Monitor] Respiratory 22 22 Rate Blood Pressure 111/50 111/50 O2 Sat by Pulse 93 96 Oximetry Constitutional: other (morbidly obese male, sedated on vent) Eyes: non-icteric Neck: other (extremely large in circumference) Effort: normal Ascultation: Bilateral: diminished breath sounds (secondary to body habitus) Cardiovascular: regular rate and rhythm (no mrg) Gastrointestinal: normoactive bowel sounds, other (obese) Integumentary: other (swelling of L hand due to blood pressure cuff and restraints, with non-infected appearing blister on thumb) Extremities: other (1+ generalized edema) Neurologic: unable to assess Psychiatric: other (unable to assess) CBC and BMP: 05/14/19 04:00 05/14/19 04:00 ABG, PT/INR, D-dimer: ABG POC ABG pH 7.328 (7.35-7.45) L 05/14/19 04:34 ABG pH 7.288 pH Units (7.350-7.450) L 05/13/19 04:30 POC ABG pCO2 61.7 (35-45) H 05/14/19 04:34 ABG pCO2 65.9 mm Hg 05/13/19 04:30 POC ABG pO2 99 (80-105) 05/14/19 04:34 ABG pO2 109.7 mm Hg (80.0-90.0) H 05/13/19 04:30 POC ABG HCO3 32.4 (22-26 mml/L) 05/14/19 04:34 POC ABG Total CO2 34 (23-27mmol/L) 05/14/19 04:34 POC ABG O2 Sat 97 05/14/19 04:34 ABG O2 Saturation 97.5 % (95.0-99.0) 05/13/19 04:30 PT/INR, D-dimer PT 15.4 Sec. (12.2-14.9) H 05/01/19 Unknown INR 1.23 (0.87-1.13) H 05/01/19 Unknown Abnormal lab findings: Abnormal Labs 05/01/19 05/01/19 05/01/19 17:50 19:26 22:36 WBC RBC Hgb Hct MCV MCH MCHC RDW Lymph % (Auto) [place] % (Auto) Lymph # [place] # Seg Neutrophils % Seg Neutrophils # PT INR APTT POC ABG pH 7.272 L 7.331 L ABG pH POC ABG pCO2 52.8 H POC ABG pO2 ABG pO2 ABG HCO3 ABG O2 Saturation ABG Base Excess ABG Hemoglobin Oxyhemoglobin Sodium 136 L Potassium 6.5 H* Chloride 97.2 L Carbon Dioxide BUN 60 H Creatinine Glucose 113 H POC Glucose Uric Acid Calcium Phosphorus Magnesium 2.40 H AST 139 H ALT 154 H Total Creatine Kinase CK-MB (CK-2) Troponin T NT-Pro-B Natriuret Pep Total Protein Albumin 3.8 L Triglycerides HDL Cholesterol Urine WBC (Auto) Urine Creatinine Urine Total Protein 05/01/19 05/01/19 05/01/19 Unknown Unknown Unknown WBC 16.1 H RBC Hgb Hct MCV MCH MCHC RDW 17.2 H Lymph % (Auto) [place] % (Auto) 9.6 H Lymph # [place] # 1.5 H Seg Neutrophils % 73.0 H Seg Neutrophils # 11.7 H PT 15.4 H INR 1.23 H APTT 22.7 L POC ABG pH ABG pH POC ABG pCO2 POC ABG pO2 ABG pO2 ABG HCO3 ABG O2 Saturation ABG Base Excess ABG Hemoglobin Oxyhemoglobin Sodium Potassium Chloride Carbon Dioxide BUN Creatinine Glucose POC Glucose Uric Acid Calcium Phosphorus Magnesium AST ALT Total Creatine Kinase CK-MB (CK-2) Troponin T NT-Pro-B Natriuret Pep 6831 H Total Protein Albumin Triglycerides HDL Cholesterol Urine WBC (Auto) Urine Creatinine Urine Total Protein 05/01/19 05/02/19 05/02/19 Unknown 00:06 00:06 WBC RBC Hgb Hct MCV MCH MCHC RDW Lymph % (Auto) [place] % (Auto) Lymph # [place] # Seg Neutrophils % Seg Neutrophils # PT INR APTT POC ABG pH ABG pH POC ABG pCO2 POC ABG pO2 ABG pO2 ABG HCO3 ABG O2 Saturation ABG Base Excess ABG Hemoglobin Oxyhemoglobin Sodium Potassium Chloride Carbon Dioxide BUN Creatinine Glucose POC Glucose Uric Acid Calcium Phosphorus 4.90 H Magnesium AST ALT Total Creatine Kinase 226 H CK-MB (CK-2) 5.7 H Troponin T 0.044 H NT-Pro-B Natriuret Pep Total Protein Albumin Triglycerides 182 H HDL Cholesterol 18 L Urine WBC (Auto) Urine Creatinine Urine Total Protein 05/02/19 05/02/19 05/02/19 02:08 04:40 04:41 WBC 17.6 H RBC Hgb Hct MCV MCH 27 L MCHC RDW 17.4 H Lymph % (Auto) 10.2 L [place] % (Auto) 11.0 H Lymph # [place] # 1.9 H Seg Neutrophils % 78.0 H Seg Neutrophils # 13.8 H PT INR APTT POC ABG pH ABG pH POC ABG pCO2 46.8 H POC ABG pO2 63 L ABG pO2 ABG HCO3 ABG O2 Saturation ABG Base Excess ABG Hemoglobin Oxyhemoglobin Sodium Potassium Chloride 96.3 L Carbon Dioxide BUN 63 H Creatinine 1.7 H Glucose POC Glucose Uric Acid Calcium Phosphorus Magnesium AST ALT Total Creatine Kinase CK-MB (CK-2) Troponin T NT-Pro-B Natriuret Pep Total Protein Albumin Triglycerides HDL Cholesterol Urine WBC (Auto) Urine Creatinine Urine Total Protein 05/02/19 05/02/19 05/02/19 04:41 04:41 16:05 WBC RBC Hgb Hct MCV MCH MCHC RDW Lymph % (Auto) [place] % (Auto) Lymph # [place] # Seg Neutrophils % Seg Neutrophils # PT INR APTT POC ABG pH ABG pH POC ABG pCO2 POC ABG pO2 ABG pO2 66.6 L ABG HCO3 31.9 H ABG O2 Saturation 92.5 L ABG Base Excess 5.8 H ABG Hemoglobin 13.3 L Oxyhemoglobin 90.6 L Sodium Potassium Chloride 97.2 L Carbon Dioxide BUN 61 H Creatinine 1.8 H Glucose POC Glucose Uric Acid Calcium Phosphorus Magnesium AST ALT Total Creatine Kinase CK-MB (CK-2) 5.2 H Troponin T 0.067 H D NT-Pro-B Natriuret Pep Total Protein Albumin Triglycerides HDL Cholesterol Urine WBC (Auto) Urine Creatinine Urine Total Protein 05/02/19 05/03/19 05/03/19 20:39 04:35 05:05 WBC 11.8 H RBC Hgb Hct MCV MCH 27 L MCHC 31 L RDW 17.2 H Lymph % (Auto) [place] % (Auto) Lymph # [place] # Seg Neutrophils % Seg Neutrophils # PT INR APTT POC ABG pH ABG pH POC ABG pCO2 53.6 H 54.0 H POC ABG pO2 55 L 63 L ABG pO2 ABG HCO3 ABG O2 Saturation ABG Base Excess ABG Hemoglobin Oxyhemoglobin Sodium Potassium Chloride Carbon Dioxide BUN Creatinine Glucose POC Glucose Uric Acid Calcium Phosphorus Magnesium AST ALT Total Creatine Kinase CK-MB (CK-2) Troponin T NT-Pro-B Natriuret Pep Total Protein Albumin Triglycerides HDL Cholesterol Urine WBC (Auto) Urine Creatinine Urine Total Protein 05/03/19 05/03/19 05/03/19 05:05 10:55 16:48 WBC RBC Hgb Hct MCV MCH MCHC RDW Lymph % (Auto) [place] % (Auto) Lymph # [place] # Seg Neutrophils % Seg Neutrophils # PT INR APTT POC ABG pH 7.604 H ABG pH POC ABG pCO2 POC ABG pO2 58 L ABG pO2 ABG HCO3 ABG O2 Saturation ABG Base Excess ABG Hemoglobin Oxyhemoglobin Sodium Potassium Chloride Carbon Dioxide BUN 52 H Creatinine 1.9 H Glucose 103 H POC Glucose Uric Acid Calcium Phosphorus Magnesium AST ALT Total Creatine Kinase CK-MB (CK-2) Troponin T NT-Pro-B Natriuret Pep Total Protein Albumin Triglycerides HDL Cholesterol Urine WBC (Auto) 33.0 H Urine Creatinine Urine Total Protein 05/04/19 05/04/19 05/04/19 04:49 06:50 06:50 WBC 16.0 H RBC Hgb Hct MCV MCH 27 L MCHC 31 L RDW 17.8 H Lymph % (Auto) [place] % (Auto) Lymph # [place] # Seg Neutrophils % Seg Neutrophils # PT INR APTT POC ABG pH 7.273 L ABG pH POC ABG pCO2 POC ABG pO2 ABG pO2 ABG HCO3 ABG O2 Saturation ABG Base Excess ABG Hemoglobin Oxyhemoglobin Sodium 148 H Potassium 5.5 H Chloride Carbon Dioxide BUN 53 H Creatinine 3.3 H D Glucose 106 H POC Glucose Uric Acid Calcium 8.3 L Phosphorus Magnesium AST ALT Total Creatine Kinase CK-MB (CK-2) Troponin T NT-Pro-B Natriuret Pep Total Protein Albumin Triglycerides HDL Cholesterol Urine WBC (Auto) Urine Creatinine Urine Total Protein 05/05/19 05/05/19 05/05/19 00:05 04:30 05:00 WBC RBC Hgb Hct MCV MCH MCHC RDW Lymph % (Auto) [place] % (Auto) Lymph # [place] # Seg Neutrophils % Seg Neutrophils # PT INR APTT POC ABG pH 7.225 L ABG pH POC ABG pCO2 > 70 H POC ABG pO2 ABG pO2 ABG HCO3 ABG O2 Saturation ABG Base Excess ABG Hemoglobin Oxyhemoglobin Sodium 151 H Potassium 5.1 H Chloride Carbon Dioxide BUN 64 H Creatinine 3.5 H Glucose 117 H POC Glucose 141 H Uric Acid Calcium 7.5 L Phosphorus Magnesium AST 93 H ALT 65 H Total Creatine Kinase CK-MB (CK-2) Troponin T NT-Pro-B Natriuret Pep Total Protein Albumin 2.9 L Triglycerides HDL Cholesterol Urine WBC (Auto) Urine Creatinine Urine Total Protein 05/05/19 05/05/19 05/05/19 05:00 12:02 17:46 WBC 12.0 H RBC Hgb 11.3 L Hct MCV MCH 27 L MCHC 30 L RDW 18.4 H Lymph % (Auto) 7.9 L [place] % (Auto) 10.2 H Lymph # 1.0 L [place] # 1.2 H Seg Neutrophils % 80.8 H Seg Neutrophils # 9.7 H PT INR APTT POC ABG pH ABG pH POC ABG pCO2 POC ABG pO2 ABG pO2 ABG HCO3 ABG O2 Saturation ABG Base Excess ABG Hemoglobin Oxyhemoglobin Sodium Potassium Chloride Carbon Dioxide BUN Creatinine Glucose POC Glucose 125 H 112 H Uric Acid Calcium Phosphorus Magnesium AST ALT Total Creatine Kinase CK-MB (CK-2) Troponin T NT-Pro-B Natriuret Pep Total Protein Albumin Triglycerides HDL Cholesterol Urine WBC (Auto) Urine Creatinine Urine Total Protein 05/05/19 05/06/19 05/06/19 23:42 03:58 04:45 WBC 11.4 H RBC Hgb 10.7 L Hct 34.2 L MCV MCH 27 L MCHC 31 L RDW 16.9 H Lymph % (Auto) [place] % (Auto) Lymph # [place] # Seg Neutrophils % Seg Neutrophils # PT INR APTT POC ABG pH ABG pH POC ABG pCO2 62.4 H POC ABG pO2 111 H ABG pO2 ABG HCO3 ABG O2 Saturation ABG Base Excess ABG Hemoglobin Oxyhemoglobin Sodium Potassium Chloride Carbon Dioxide BUN Creatinine Glucose POC Glucose 128 H Uric Acid Calcium Phosphorus Magnesium AST ALT Total Creatine Kinase CK-MB (CK-2) Troponin T NT-Pro-B Natriuret Pep Total Protein Albumin Triglycerides HDL Cholesterol Urine WBC (Auto) Urine Creatinine Urine Total Protein 05/06/19 05/06/19 05/06/19 04:45 05:33 12:30 WBC RBC Hgb Hct MCV MCH MCHC RDW Lymph % (Auto) [place] % (Auto) Lymph # [place] # Seg Neutrophils % Seg Neutrophils # PT INR APTT POC ABG pH ABG pH POC ABG pCO2 POC ABG pO2 ABG pO2 ABG HCO3 ABG O2 Saturation ABG Base Excess ABG Hemoglobin Oxyhemoglobin Sodium 149 H Potassium Chloride Carbon Dioxide 31 H BUN 67 H Creatinine 3.2 H Glucose 125 H POC Glucose 117 H 116 H Uric Acid Calcium 7.5 L Phosphorus Magnesium AST ALT Total Creatine Kinase CK-MB (CK-2) Troponin T NT-Pro-B Natriuret Pep Total Protein Albumin Triglycerides HDL Cholesterol Urine WBC (Auto) Urine Creatinine Urine Total Protein 05/06/19 05/06/19 05/07/19 18:34 23:16 05:22 WBC RBC Hgb Hct MCV MCH MCHC RDW Lymph % (Auto) [place] % (Auto) Lymph # [place] # Seg Neutrophils % Seg Neutrophils # PT INR APTT POC ABG pH ABG pH POC ABG pCO2 POC ABG pO2 ABG pO2 ABG HCO3 ABG O2 Saturation ABG Base Excess ABG Hemoglobin Oxyhemoglobin Sodium Potassium Chloride Carbon Dioxide BUN Creatinine Glucose POC Glucose 128 H 143 H 166 H Uric Acid Calcium Phosphorus Magnesium AST ALT Total Creatine Kinase CK-MB (CK-2) Troponin T NT-Pro-B Natriuret Pep Total Protein Albumin Triglycerides HDL Cholesterol Urine WBC (Auto) Urine Creatinine Urine Total Protein 05/07/19 05/07/19 05/07/19 06:33 07:03 09:35 WBC RBC Hgb Hct MCV MCH MCHC RDW Lymph % (Auto) [place] % (Auto) Lymph # [place] # Seg Neutrophils % Seg Neutrophils # PT INR APTT POC ABG pH 7.263 L 7.288 L ABG pH POC ABG pCO2 POC ABG pO2 51 L 56 L ABG pO2 ABG HCO3 ABG O2 Saturation ABG Base Excess ABG Hemoglobin Oxyhemoglobin Sodium Potassium Chloride Carbon Dioxide BUN 76 H Creatinine 3.2 H Glucose 147 H POC Glucose Uric Acid Calcium 7.9 L Phosphorus Magnesium AST ALT Total Creatine Kinase CK-MB (CK-2) Troponin T NT-Pro-B Natriuret Pep Total Protein Albumin Triglycerides HDL Cholesterol Urine WBC (Auto) Urine Creatinine Urine Total Protein 05/07/19 05/07/19 05/07/19 09:35 12:17 13:45 WBC 13.4 H RBC Hgb 11.6 L Hct MCV MCH 27 L MCHC 31 L RDW 17.5 H Lymph % (Auto) [place] % (Auto) Lymph # [place] # Seg Neutrophils % Seg Neutrophils # PT INR APTT POC ABG pH ABG pH POC ABG pCO2 POC ABG pO2 ABG pO2 ABG HCO3 ABG O2 Saturation ABG Base Excess ABG Hemoglobin Oxyhemoglobin Sodium Potassium Chloride Carbon Dioxide BUN Creatinine Glucose POC Glucose 130 H Uric Acid 18.0 H Calcium Phosphorus Magnesium AST ALT Total Creatine Kinase CK-MB (CK-2) Troponin T NT-Pro-B Natriuret Pep Total Protein Albumin Triglycerides HDL Cholesterol Urine WBC (Auto) Urine Creatinine Urine Total Protein 05/07/19 05/07/19 05/08/19 17:39 22:40 05:06 WBC RBC Hgb Hct MCV MCH MCHC RDW Lymph % (Auto) [place] % (Auto) Lymph # [place] # Seg Neutrophils % Seg Neutrophils # PT INR APTT POC ABG pH ABG pH POC ABG pCO2 POC ABG pO2 ABG pO2 ABG HCO3 ABG O2 Saturation ABG Base Excess ABG Hemoglobin Oxyhemoglobin Sodium Potassium Chloride Carbon Dioxide BUN Creatinine Glucose POC Glucose 116 H 148 H Uric Acid Calcium Phosphorus Magnesium AST ALT Total Creatine Kinase CK-MB (CK-2) Troponin T NT-Pro-B Natriuret Pep Total Protein Albumin Triglycerides HDL Cholesterol Urine WBC (Auto) Urine Creatinine 292.8 H Urine Total Protein 269 H 05/08/19 05/08/19 05/08/19 05:32 11:28 13:48 WBC RBC Hgb Hct MCV MCH MCHC RDW Lymph % (Auto) [place] % (Auto) Lymph # [place] # Seg Neutrophils % Seg Neutrophils # PT INR APTT POC ABG pH ABG pH POC ABG pCO2 45.4 H POC ABG pO2 64 L ABG pO2 ABG HCO3 ABG O2 Saturation ABG Base Excess ABG Hemoglobin Oxyhemoglobin Sodium Potassium Chloride Carbon Dioxide BUN 73 H Creatinine 2.7 H Glucose 127 H POC Glucose 107 H Uric Acid Calcium 7.6 L Phosphorus Magnesium AST ALT Total Creatine Kinase CK-MB (CK-2) Troponin T NT-Pro-B Natriuret Pep Total Protein Albumin Triglycerides HDL Cholesterol Urine WBC (Auto) Urine Creatinine Urine Total Protein 05/08/19 05/09/19 05/09/19 17:48 04:50 04:53 WBC RBC 3.07 L Hgb 8.5 L D Hct 29.3 L D MCV 96 H MCH MCHC 29 L RDW 18.1 H Lymph % (Auto) [place] % (Auto) Lymph # [place] # Seg Neutrophils % Seg Neutrophils # PT INR APTT POC ABG pH 7.316 L ABG pH POC ABG pCO2 66.0 H POC ABG pO2 69 L ABG pO2 ABG HCO3 ABG O2 Saturation ABG Base Excess ABG Hemoglobin Oxyhemoglobin Sodium Potassium Chloride Carbon Dioxide BUN Creatinine Glucose POC Glucose 155 H Uric Acid Calcium Phosphorus Magnesium AST ALT Total Creatine Kinase CK-MB (CK-2) Troponin T NT-Pro-B Natriuret Pep Total Protein Albumin Triglycerides HDL Cholesterol Urine WBC (Auto) Urine Creatinine Urine Total Protein 05/09/19 05/09/19 05/09/19 05:46 07:24 12:10 WBC RBC Hgb Hct MCV MCH MCHC RDW Lymph % (Auto) [place] % (Auto) Lymph # [place] # Seg Neutrophils % Seg Neutrophils # PT INR APTT POC ABG pH ABG pH POC ABG pCO2 POC ABG pO2 ABG pO2 ABG HCO3 ABG O2 Saturation ABG Base Excess ABG Hemoglobin Oxyhemoglobin Sodium Potassium Chloride Carbon Dioxide BUN 73 H Creatinine 2.4 H Glucose 153 H POC Glucose 123 H 148 H Uric Acid Calcium 8.2 L Phosphorus Magnesium AST 45 H ALT Total Creatine Kinase CK-MB (CK-2) Troponin T NT-Pro-B Natriuret Pep Total Protein 6.0 L Albumin 1.9 L Triglycerides HDL Cholesterol Urine WBC (Auto) Urine Creatinine Urine Total Protein 05/09/19 05/09/19 05/10/19 18:23 23:26 04:52 WBC RBC Hgb Hct MCV MCH MCHC RDW Lymph % (Auto) [place] % (Auto) Lymph # [place] # Seg Neutrophils % Seg Neutrophils # PT INR APTT POC ABG pH 7.305 L ABG pH POC ABG pCO2 62.6 H POC ABG pO2 ABG pO2 ABG HCO3 ABG O2 Saturation ABG Base Excess ABG Hemoglobin Oxyhemoglobin Sodium Potassium Chloride Carbon Dioxide BUN Creatinine Glucose POC Glucose 147 H 121 H Uric Acid Calcium Phosphorus Magnesium AST ALT Total Creatine Kinase CK-MB (CK-2) Troponin T NT-Pro-B Natriuret Pep Total Protein Albumin Triglycerides HDL Cholesterol Urine WBC (Auto) Urine Creatinine Urine Total Protein 05/10/19 05/10/19 05/10/19 05:00 05:00 05:50 WBC RBC Hgb 10.3 L Hct 33.7 L MCV MCH 27 L MCHC 31 L RDW 17.0 H Lymph % (Auto) [place] % (Auto) Lymph # [place] # Seg Neutrophils % Seg Neutrophils # PT INR APTT POC ABG pH ABG pH POC ABG pCO2 POC ABG pO2 ABG pO2 ABG HCO3 ABG O2 Saturation ABG Base Excess ABG Hemoglobin Oxyhemoglobin Sodium 147 H Potassium Chloride Carbon Dioxide BUN 70 H Creatinine 2.6 H Glucose 155 H POC Glucose 158 H Uric Acid Calcium 8.2 L Phosphorus Magnesium AST ALT Total Creatine Kinase CK-MB (CK-2) Troponin T NT-Pro-B Natriuret Pep Total Protein 6.1 L Albumin 2.5 L Triglycerides HDL Cholesterol Urine WBC (Auto) Urine Creatinine Urine Total Protein 05/10/19 05/11/19 05/11/19 13:14 07:26 11:40 WBC RBC Hgb Hct MCV MCH MCHC RDW Lymph % (Auto) [place] % (Auto) Lymph # [place] # Seg Neutrophils % Seg Neutrophils # PT INR APTT POC ABG pH ABG pH POC ABG pCO2 48.0 H POC ABG pO2 58 L ABG pO2 ABG HCO3 ABG O2 Saturation ABG Base Excess ABG Hemoglobin Oxyhemoglobin Sodium 147 H Potassium Chloride 107.2 H Carbon Dioxide BUN 67 H Creatinine 2.6 H Glucose 121 H POC Glucose 159 H Uric Acid Calcium Phosphorus Magnesium AST ALT Total Creatine Kinase CK-MB (CK-2) Troponin T NT-Pro-B Natriuret Pep Total Protein Albumin Triglycerides HDL Cholesterol Urine WBC (Auto) Urine Creatinine Urine Total Protein 05/11/19 05/11/19 05/12/19 18:13 23:46 04:40 WBC RBC Hgb Hct MCV MCH MCHC RDW Lymph % (Auto) [place] % (Auto) Lymph # [place] # Seg Neutrophils % Seg Neutrophils # PT INR APTT POC ABG pH ABG pH 7.264 L POC ABG pCO2 POC ABG pO2 ABG pO2 66.8 L ABG HCO3 31.0 H ABG O2 Saturation 92.0 L ABG Base Excess ABG Hemoglobin 10.3 L Oxyhemoglobin 90.1 L Sodium Potassium Chloride Carbon Dioxide BUN Creatinine Glucose POC Glucose 120 H 121 H Uric Acid Calcium Phosphorus Magnesium AST ALT Total Creatine Kinase CK-MB (CK-2) Troponin T NT-Pro-B Natriuret Pep Total Protein Albumin Triglycerides HDL Cholesterol Urine WBC (Auto) Urine Creatinine Urine Total Protein 05/12/19 05/12/19 05/12/19 04:45 04:45 11:14 WBC RBC Hgb 10.2 L Hct 32.4 L MCV MCH MCHC 31 L RDW 17.2 H Lymph % (Auto) [place] % (Auto) Lymph # [place] # Seg Neutrophils % Seg Neutrophils # PT INR APTT POC ABG pH 7.284 L ABG pH POC ABG pCO2 67.8 H POC ABG pO2 ABG pO2 ABG HCO3 ABG O2 Saturation ABG Base Excess ABG Hemoglobin Oxyhemoglobin Sodium Potassium Chloride Carbon Dioxide BUN 63 H Creatinine 2.4 H Glucose 110 H POC Glucose Uric Acid Calcium Phosphorus Magnesium AST ALT Total Creatine Kinase CK-MB (CK-2) Troponin T NT-Pro-B Natriuret Pep Total Protein Albumin Triglycerides HDL Cholesterol Urine WBC (Auto) Urine Creatinine Urine Total Protein 05/12/19 05/12/19 05/13/19 11:44 23:11 04:30 WBC RBC Hgb Hct MCV MCH MCHC RDW Lymph % (Auto) [place] % (Auto) Lymph # [place] # Seg Neutrophils % Seg Neutrophils # PT INR APTT POC ABG pH ABG pH 7.288 L POC ABG pCO2 POC ABG pO2 ABG pO2 109.7 H ABG HCO3 30.9 H ABG O2 Saturation ABG Base Excess 3.2 H ABG Hemoglobin 9.6 L Oxyhemoglobin Sodium Potassium Chloride Carbon Dioxide BUN Creatinine Glucose POC Glucose 126 H 147 H Uric Acid Calcium Phosphorus Magnesium AST ALT Total Creatine Kinase CK-MB (CK-2) Troponin T NT-Pro-B Natriuret Pep Total Protein Albumin Triglycerides HDL Cholesterol Urine WBC (Auto) Urine Creatinine Urine Total Protein 05/13/19 05/13/19 05/14/19 06:27 11:58 04:00 WBC RBC 3.16 L Hgb 9.3 L Hct 27.9 L MCV MCH MCHC RDW 17.1 H Lymph % (Auto) [place] % (Auto) Lymph # [place] # Seg Neutrophils % Seg Neutrophils # PT INR APTT POC ABG pH ABG pH POC ABG pCO2 POC ABG pO2 ABG pO2 ABG HCO3 ABG O2 Saturation ABG Base Excess ABG Hemoglobin Oxyhemoglobin Sodium Potassium Chloride Carbon Dioxide BUN Creatinine Glucose POC Glucose 113 H 130 H Uric Acid Calcium Phosphorus Magnesium AST ALT Total Creatine Kinase CK-MB (CK-2) Troponin T NT-Pro-B Natriuret Pep Total Protein Albumin Triglycerides HDL Cholesterol Urine WBC (Auto) Urine Creatinine Urine Total Protein 05/14/19 05/14/19 05/14/19 04:00 04:34 05:32 WBC RBC Hgb Hct MCV MCH MCHC RDW Lymph % (Auto) [place] % (Auto) Lymph # [place] # Seg Neutrophils % Seg Neutrophils # PT INR APTT POC ABG pH 7.328 L ABG pH POC ABG pCO2 61.7 H POC ABG pO2 ABG pO2 ABG HCO3 ABG O2 Saturation ABG Base Excess ABG Hemoglobin Oxyhemoglobin Sodium 135 L D Potassium Chloride Carbon Dioxide BUN 57 H Creatinine 2.2 H Glucose 115 H POC Glucose 115 H Uric Acid Calcium 8.1 L Phosphorus Magnesium AST ALT Total Creatine Kinase CK-MB (CK-2) Troponin T NT-Pro-B Natriuret Pep Total Protein Albumin Triglycerides HDL Cholesterol Urine WBC (Auto) Urine Creatinine Urine Total Protein
--- NOTE | 2019-05-14 11:48 | Progress Note ---
Assessment and Plan # Acute kidney injury: creatinine remains higher than presumed baseline of 1.9 on 05/03/2019, stable at 2.2, no labs today Suspect tubular injury in setting of sepsis, respiratory failure, hypotension. S/p diuresis on 05/09 - continue supportive measures, appreciate pulm and ID input - avoid nephrotoxins - diuresis prn per pulm. Would ideally like to avoid over diuresis due to risk to renal tubule recovery, no indication for diuretic today from renal perspective, defer to pulmonary - still unable to visualize left kidney on ultrasound; may consider CT abd/pelvis if renal function worsens - no indication for renal replacement therapy - follow vanc levels # Hypernatremia: now resolved off Florinef, borderline low - will decrease free water flushes with TF # HTN: BP reasonable, continue current management # Anemia: hemoglobin 9.3, pRBC transfusion prn # Encephalopathy, seizure disorder, hypoxic respiratory failure, fever: ID and pulm following We'll continue to follow and make recommendation from renal standpoint for this critically ill patient; we appreciate the opportunity to assist in his care. Subjective Date of service: 05/14/19 Principal diagnosis: HF; acute hypoxemic resp failure, SIRS, CARLA Interval history: No acute events noted. Remains intubated and sedated. Objective - Exam Narrative Exam: General: No acute distress/ intubated and sedated HEENT: ET tube in place Neck: Supple Chest:coarse mechanical breath sounds, PRVC with FiO2 50% Heart: Regular rate and rhythm Abdomen: Soft nontender Extremity: no edema Psych: sedated Derm: No petechial rash - Vital Signs Vital signs: Vital Signs - 12hr 05/14/19 05/14/19 05/14/19 00:00 00:15 00:30 Temperature Pulse Rate 84 84 84 Pulse Rate [ 82 From Monitor] Respiratory 16 20 18 Rate Blood Pressure 115/48 111/47 110/46 O2 Sat by Pulse 93 93 94 Oximetry 05/14/19 05/14/19 05/14/19 00:45 01:00 01:15 Temperature Pulse Rate 84 84 82 Pulse Rate [ From Monitor] Respiratory 18 19 22 Rate Blood Pressure 113/48 112/46 113/51 O2 Sat by Pulse 93 93 93 Oximetry 05/14/19 05/14/19 05/14/19 01:30 01:45 02:00 Temperature Pulse Rate 81 82 82 Pulse Rate [ From Monitor] Respiratory 22 22 22 Rate Blood Pressure 112/47 111/48 109/47 O2 Sat by Pulse 94 94 94 Oximetry 05/14/19 05/14/19 05/14/19 02:15 02:30 02:45 Temperature Pulse Rate 83 84 82 Pulse Rate [ From Monitor] Respiratory 22 22 22 Rate Blood Pressure 109/44 111/48 111/47 O2 Sat by Pulse 94 95 94 Oximetry 05/14/19 05/14/19 05/14/19 03:00 03:01 03:15 Temperature 99.4 F Pulse Rate 81 83 Pulse Rate [ From Monitor] Respiratory 22 21 Rate Blood Pressure 109/48 109/48 O2 Sat by Pulse 95 97 Oximetry 05/14/19 05/14/19 05/14/19 03:31 03:45 04:00 Temperature Pulse Rate 87 84 85 Pulse Rate [ 85 From Monitor] Respiratory 22 21 22 Rate Blood Pressure 109/48 109/48 105/44 O2 Sat by Pulse 96 97 96 Oximetry 05/14/19 05/14/19 05/14/19 04:14 04:15 04:31 Temperature Pulse Rate 84 83 82 Pulse Rate [ From Monitor] Respiratory 22 22 Rate Blood Pressure 105/44 105/44 105/44 O2 Sat by Pulse 97 97 97 Oximetry 05/14/19 05/14/19 05/14/19 04:45 05:00 05:15 Temperature Pulse Rate 83 81 83 Pulse Rate [ From Monitor] Respiratory 22 22 23 Rate Blood Pressure 105/44 105/48 105/48 O2 Sat by Pulse 97 95 97 Oximetry 05/14/19 05/14/19 05/14/19 05:31 05:45 06:00 Temperature Pulse Rate 82 82 82 Pulse Rate [ From Monitor] Respiratory 22 22 22 Rate Blood Pressure 105/48 105/48 112/51 O2 Sat by Pulse 97 97 97 Oximetry 05/14/19 05/14/19 05/14/19 06:07 06:15 06:31 Temperature Pulse Rate 81 81 82 Pulse Rate [ From Monitor] Respiratory 22 22 Rate Blood Pressure 112/51 112/51 112/51 O2 Sat by Pulse 97 97 Oximetry 05/14/19 05/14/19 05/14/19 06:45 07:00 07:15 Temperature Pulse Rate 81 85 85 Pulse Rate [ From Monitor] Respiratory 22 22 22 Rate Blood Pressure 112/51 109/48 109/48 O2 Sat by Pulse 97 96 96 Oximetry 05/14/19 05/14/19 05/14/19 07:31 07:45 08:00 Temperature Pulse Rate 84 82 94 H Pulse Rate [ 82 From Monitor] Respiratory 22 21 22 Rate Blood Pressure 109/48 109/48 121/58 O2 Sat by Pulse 96 95 93 Oximetry 05/14/19 05/14/19 05/14/19 08:12 08:15 08:31 Temperature 98.6 F Pulse Rate 82 83 Pulse Rate [ From Monitor] Respiratory 22 22 Rate Blood Pressure 111/50 111/50 O2 Sat by Pulse 96 95 Oximetry 05/14/19 05/14/19 05/14/19 08:45 09:00 09:15 Temperature Pulse Rate 84 88 96 H Pulse Rate [ From Monitor] Respiratory 22 22 15 Rate Blood Pressure 111/50 121/58 121/58 O2 Sat by Pulse 96 95 Oximetry 05/14/19 05/14/19 05/14/19 09:31 09:45 10:00 Temperature Pulse Rate 88 86 81 Pulse Rate [ From Monitor] Respiratory 19 22 15 Rate Blood Pressure 121/58 121/58 107/50 O2 Sat by Pulse 93 93 99 Oximetry 05/14/19 05/14/19 05/14/19 10:15 10:31 10:45 Temperature Pulse Rate 83 82 83 Pulse Rate [ From Monitor] Respiratory 15 21 22 Rate Blood Pressure 107/50 107/50 107/50 O2 Sat by Pulse 92 92 91 Oximetry 05/14/19 11:00 Temperature Pulse Rate 84 Pulse Rate [ From Monitor] Respiratory 22 Rate Blood Pressure 117/55 O2 Sat by Pulse 91 Oximetry - Lab 05/14/19 04:00 05/14/19 04:00 Most recent lab results ABG pH 7.288 pH Units (7.350-7.450) L 05/13/19 04:30 ABG pCO2 65.9 mm Hg 05/13/19 04:30 ABG pO2 109.7 mm Hg (80.0-90.0) H 05/13/19 04:30 ABG HCO3 30.9 mmol/L (20.0-26.0) H 05/13/19 04:30 ABG O2 Saturation 97.5 % (95.0-99.0) 05/13/19 04:30 Calcium 8.1 mg/dL (8.4-10.2) L 05/14/19 04:00 Phosphorus 4.90 mg/dL (2.5-4.5) H 05/02/19 00:06 Magnesium 2.30 mg/dL (1.7-2.3) 05/02/19 00:06 Urine Creatinine 292.8 mg/dL (0.1-20.0) H 05/07/19 22:40 Urine Sodium 11 mmol/L 05/07/19 22:40 Urine Total Protein 269 mg/dL (5-11.8) H 05/07/19 22:40 Medications & Allergies - Medications Allergies/Adverse Reactions: Allergies No Known Allergies Allergy (Verified 05/01/19 20:27) Home Medications: Home Medications Medication Instructions Recorded Confirmed Last Taken Type RX: No Known Home Medications [No 05/03/19 05/03/19 Unknown History Reported Home Medications] Active Medications: Generic Name Dose Route Start Last Admin Trade Name Freq PRN Reason Stop Dose Admin Acetaminophen 650 mg 05/01/19 22:46 05/11/19 19:46 Tylenol PO 650 mg Q4H PRN Administration Pain MILD(1-3)/Fever >100.5/FREEMAN Lipase/Protease/Amylase 1 each 05/10/19 11:23 Pancreaze 10,500 Unit FEEDTUBE PRN PRN For Clogged Feeding Tube Dextrose 50 gm 05/01/19 20:24 D50w (25gm) Vial IV Q30MIN PRN Hypoglycemia Protocol Enoxaparin Sodium 40 mg 05/13/19 10:00 05/14/19 09:10 Enoxaparin SUB-Q 40 mg QDAY@1000 VICKEY Administration Famotidine 20 mg 05/12/19 22:00 05/14/19 09:10 Pepcid PO 20 mg BID VICKEY Administration Hydralazine HCl 20 mg 05/13/19 08:09 05/13/19 14:12 Apresoline IV 20 mg Q4HR PRN Administration SBP >/=160 Hydrophilic Ointment 1 applic 05/01/19 21:14 Vaseline Lip Therapy TP Q2HR PRN Dry Lips Fentanyl Citrate 2,000 mcg in 100 mls @ 10.195 mls/hr 05/01/19 22:00 05/14/19 10:04 Fentanyl Drip Premix IV 2 mcg/kg/hr TITR VICKEY 20.39 mls/hr Administration Protocol 1 MCG/KG/HR Propofol 1,000 mg in 100 mls @ 7.011 mls/hr 05/03/19 04:00 05/14/19 08:13 Diprivan 10 Mg/Ml IV 20 mcg/kg/min TITR VICKEY 28.044 mls/hr Administration Protocol 5 MCG/KG/MIN Norepinephrine 4 mg in 250 mls @ 7.5 mls/hr 05/03/19 18:00 Levophed Drip 4 Mg/Ns 250 Ml IV TITR VICKEY Protocol 2 MCG/MIN Sodium Chloride 500 mls @ 10 mls/hr 05/06/19 15:00 Nacl 0.9% 500 Ml IV DIRECT VICKEY Ceftriaxone Sodium 2 gm in 100 mls @ 200 mls/hr 05/07/19 22:00 05/14/19 09:09 Rocephin/Ns 2 Gm/100 Ml IV 200 mls/hr Q12HR VICKEY Administration Protocol Metronidazole 500 mg in 100 mls @ 100 mls/hr 05/11/19 14:00 05/14/19 05:39 Flagyl 500 Mg/100 Ml IV 100 mls/hr Q8HR VICKEY Administration Protocol Vancomycin HCl 2,000 mg/ 540 mls @ 250 mls/hr 05/12/19 11:00 05/14/19 09:09 Sodium Chloride IV 250 mls/hr Q24HR VICKEY Administration Nicardipine HCl 50 mg/ Sodium 250 mls @ 25 mls/hr 05/13/19 10:00 05/13/19 21:46 Chloride IV 0 mg/hr TITR VICKEY 0 mls/hr Titration Protocol 5 MG/HR Labetalol HCl 100 mg 05/14/19 14:00 Labetalol PO Q8HR VICKEY Levetiracetam 750 mg 05/13/19 10:00 05/14/19 09:10 Keppra PO 750 mg BID VICKEY Administration Lorazepam 2 mg 05/06/19 06:22 05/10/19 16:17 Ativan IV 2 mg Q4H PRN Administration Seizures/AGITATION Multi-Ingred Cream/Lotion/Oil/Oint 1 applic 05/01/19 21:14 Artificial Tears Ophth Oint OU Q4HR PRN Dry Eye(s) Ondansetron HCl 4 mg 05/01/19 22:46 Zofran IV Q8H PRN Nausea And Vomiting Simple Syrup 15 ml 05/10/19 11:23 Simple Syrup FEEDTUBE PRN PRN Hypoglycemia Simple Syrup 30 ml 05/10/19 11:23 Simple Syrup FEEDTUBE PRN PRN Hypoglycemia Sodium Bicarbonate 325 mg 05/10/19 11:23 Sodium Bicarbonate FEEDTUBE PRN PRN For Clogged Feeding Tube Sodium Chloride 10 ml 05/02/19 10:00 05/14/19 09:11 Sodium Chloride Flush Syringe 10 Ml IV 10 ml BID VICKEY Administration Sodium Chloride 10 ml 05/01/19 22:46 05/05/19 02:28 Sodium Chloride Flush Syringe 10 Ml IV 10 ml PRN PRN Administration LINE FLUSH
--- NOTE | 2019-05-14 12:46 | Progress Note ---
Assessment and Plan Cultures: Blood cultures 05/11/19: no growth thus far Sputum culture 05/11/19: no growth thus far urine culture: no growth resp culture: no growth A/P: 34-year-old male with obesity admitted with: #Fever, SIRS: Patient was afebrile for the first 2 days of hospitalization, then he developed a fever of 101.2F. ?aspiration related. Apparently was using CPAP. Now febrile again, ?UTI. UA showed pyuria, had indwelling [place] which was removed. Urine culture with no growth. #Acute hypoxic hypercapneic respiratory failure, possibly obesity hypoventil ation syndrome: on the vent. Pulmonary managing. #Morbid obesity #CARLA: creatinine elevated. dose abx accordingly. #Elevated LFTs: RUQ US showed fatty liver, small GB sludge. Improving. #Acute encephalopathy with ?seizure activity: persistent fevers. Agree with possible meningitis coverage Recs: Fevers resolving with addition of Flagyl. Continue to monitor on current regimen. continue empiric meningitis coverage with Ceftriaxone, Vancomycin - Would complete 2 weeks of therapy, expected stop date 05/21 Added metronidazole due to fevers and concern for previous aspiration GTalita Bearden MD [facility] M: [phone] O: [phone] F: [phone] Subjective Date of service: 05/14/19 Principal diagnosis: HF; acute hypoxemic resp failure, SIRS, CARLA Interval history: Fevers resolved, normal white count. Objective - Exam Narrative Exam: Constitutional: sedated, intubated. Morbid obesity Head, Ears, Nose: Normocephalic, atraumatic. External ears, nose normal Eyes: Conjunctivae/corneas clear. No icterus. No ptosis. Neck: intubated Oral: intubated Cardiovascular: S1, S2 normal. Respiratory: Good air entry, clear to auscultation bilaterally GI: Soft, non-tender; bowel sounds normal. No peritoneal signs Musculoskeletal: No pedal edema, no cyanosis. Skin: No rash or abscess Hem/Lymphatic: No palpable cervical or supraclavicular nodes. No lymphangitis Psych: no agitation Neurological: sedated, intubated, on vent - Constitutional Vitals: Vital Signs Temp Pulse Resp BP Pulse Ox 98.6 F 87 22 123/65 93 05/14/19 08:12 05/14/19 12:15 05/14/19 12:15 05/14/19 12:15 05/14/19 12:15 Temperature -Last 24 Hours Temperature 98.6 F Temperature 99.4 F Temperature 99.1 F Temperature 98.6 F Temperature 99.7 F - Labs CBC & Chem 7: 05/14/19 04:00 05/14/19 04:00 Labs: Abnormal lab results 05/14/19 05/14/19 05/14/19 Range/Units 04:00 04:00 04:34 RBC 3.16 L (3.65-5.03) M/mm3 Hgb 9.3 L (11.8-15.2) gm/dl Hct 27.9 L (35.5-45.6) % RDW 17.1 H (13.2-15.2) % POC ABG pH 7.328 L (7.35-7.45) POC ABG pCO2 61.7 H (35-45) Sodium 135 L D (137-145) mmol/L BUN 57 H (9-20) mg/dL Creatinine 2.2 H (0.8-1.5) mg/dL Glucose 115 H (75-100) mg/dL POC Glucose (70-105) Calcium 8.1 L (8.4-10.2) mg/dL 05/14/19 05/14/19 Range/Units 05:32 12:11 RBC (3.65-5.03) M/mm3 Hgb (11.8-15.2) gm/dl Hct (35.5-45.6) % RDW (13.2-15.2) % POC ABG pH (7.35-7.45) POC ABG pCO2 (35-45) Sodium (137-145) mmol/L BUN (9-20) mg/dL Creatinine (0.8-1.5) mg/dL Glucose (75-100) mg/dL POC Glucose 115 H 110 H (70-105) Calcium (8.4-10.2) mg/dL
[2019-05-14] MEDS ORDERED: LIPASE 10,500/PROTEASE 25,000/AMYLASE 43,750 (UNITS) DR CAP FEEDTUBE PRN (15:01)
[2019-05-14] MEDS ORDERED: SIMPLE SYRUP 15 ML FEEDTUBE PRN ×2 (15:01)
[2019-05-14] MEDS ORDERED: SODIUM BICARBONATE 325 MG TAB FEEDTUBE PRN (15:01)
--- NOTE | 2019-05-14 15:43 | Progress Note ---
Assessment and Plan Assessment and plan: 34-year-old man who is morbidly obese with unknown medical problem was brought to the emergency room with complaints of shortness of breath and difficulty sleeping. History is per the chart, nurse reported that his saturation dropped to 28%, heart rate in the 50s, she checked on them, he was cyanotic and was subsequently intubated and recieved 2 rounds of epinephrine. Cardiac arrest. * Discussed with pulmonary, Some improvement in saturation to the 90% range. Remains on 70% FIO2 and 20 PEEP * Diuresis held due to renal function worsening, appears to be improving today * still with fever * per ID empiric meningitis coverage with Ceftriaxone, Vancomycin * Flagyl discontinued * Acyclovir also added, renally adjusted- now discontinued * When feasible LP and possible MRI brain (though may be limited due to patient's weight) * 05/12/19- ETT exchanged due to hypoxia * Patient unfortunately continues on ventilator with management as prescribed by business account specialist. * [place] of prognosis discussed with family and they are aware. Blood cultures: no growth thus far Sputum culture: no growth thus far urine culture: no growth s/p Cardiac arrest Resuscitated cardiology consulted, following Acute hypoxic and hypercapenic respiratory failure on vent >96hrs Status post intubation, continue sedation, consulted pulmonary And input noted "continue to wean FiO2 for sats >88% and or PaO2 of greater than 55. Do not wean PEEP until FiO2 is a 50% or lower. Permissive hypercapnea is ok as long as pH is not lower than 7.2" Obesity Hypoventilation syndrome Patient previously on [facility] Management at home but per discussion with family, was non complaint Sepsis- not present on admission -On abx, ID following. LP when able Acylovir stopped ?seizure activity -Meninigitis prophy -Neurology consult -EEG- Acute CHF, new onset, Diurese with IV lasix held, monitor I/O, daily weights Cardiology following. Added beta-jenny, no TIM inhibitor secondary to renal insufficiency Hypertension malignant Start antihypertensive, monitor blood pressure IV hydralazine as needed for further control Acute kidney injury due to ATN begning to trend downwards Nephrology following and input noted. Berkowitz for strict I/Os Hyperkalemia-Resolved Passive congestive hepatic syndrome -LFT elevated but trending down -Noted Gallbladder sludge DVT prophylaxis with Lovenox Morbid obesity Full code status. Prognosis guarded Discussed with Mother and another family male member that came with the mom yesterday. All questions answered The high probability of a clinically significant, sudden or life threatening deterioration of the [cardiovascular, Pulmonary, renal, neurological] system(s) required my full and direct attention, intervention and personal management. The aggregate critical care time was [35] minutes. This time is in addition to time spent performing reported procedures but includes the following: [x] Data Review and interpretation [x] Patient assessment and monitoring of vital signs [x] Documentation [x] Medication orders and management History Interval history: Patient seen and examined, remains on full ventilatory support, persistently elevated blood pressure not improved today. Blood pressure medication adjusted appropriately. Hospitalist Physical - Physical exam Narrative exam: Gen: Not in acute distress, intubated, SEDATED no evidence of vent-patient dyschronny on vent, morbidly obese HEENT: Normocephalic, atraumatic, short and large neck circumference Neck: supple, no JVD Heart: S1 and S2 reg, no murmurs, rubs or gallop Lungs: Clear to auscultation bilaterally, no wheeze Abd: soft, NT, non distended, normal bowel sounds Ext:No edema, no cyanosis Neuro: Intubated, sedated - Constitutional Vitals: Temp Pulse Resp BP Pulse Ox 98.6 F 84 16 116/57 94 05/14/19 08:12 05/14/19 14:20 05/14/19 14:00 05/14/19 14:20 05/14/19 14:20 General appearance: Present: no acute distress Results - Labs CBC & Chem 7: 05/14/19 04:00 05/14/19 04:00 Labs: Laboratory Last Values WBC 8.6 K/mm3 (4.5-11.0) 05/14/19 04:00 RBC 3.16 M/mm3 (3.65-5.03) L 05/14/19 04:00 Hgb 9.3 gm/dl (11.8-15.2) L 05/14/19 04:00 Hct 27.9 % (35.5-45.6) L 05/14/19 04:00 MCV 88 fl (84-94) 05/14/19 04:00 MCH 29 pg (28-32) 05/14/19 04:00 MCHC 33 % (32-34) 05/14/19 04:00 RDW 17.1 % (13.2-15.2) H 05/14/19 04:00 Plt Count 238 K/mm3 (140-440) 05/14/19 04:00 Lymph % (Auto) 7.9 % (13.4-35.0) L 05/05/19 05:00 [place] % (Auto) 10.2 % (0.0-7.3) H 05/05/19 05:00 Eos % (Auto) 0.6 % (0.0-4.3) 05/05/19 05:00 Baso % (Auto) 0.5 % (0.0-1.8) 05/05/19 05:00 Lymph # 1.0 K/mm3 (1.2-5.4) L 05/05/19 05:00 [place] # 1.2 K/mm3 (0.0-0.8) H 05/05/19 05:00 Eos # 0.1 K/mm3 (0.0-0.4) 05/05/19 05:00 Baso # 0.1 K/mm3 (0.0-0.1) 05/05/19 05:00 Seg Neutrophils % 80.8 % (40.0-70.0) H 05/05/19 05:00 Seg Neutrophils # 9.7 K/mm3 (1.8-7.7) H 05/05/19 05:00 PT 15.4 Sec. (12.2-14.9) H 05/01/19 Unknown INR 1.23 (0.87-1.13) H 05/01/19 Unknown APTT 22.7 Sec. (24.2-36.6) L 05/01/19 Unknown POC ABG pH 7.328 (7.35-7.45) L 05/14/19 04:34 ABG pH 7.288 pH Units (7.350-7.450) L 05/13/19 04:30 POC ABG pCO2 61.7 (35-45) H 05/14/19 04:34 ABG pCO2 65.9 mm Hg 05/13/19 04:30 POC ABG pO2 99 (80-105) 05/14/19 04:34 ABG pO2 109.7 mm Hg (80.0-90.0) H 05/13/19 04:30 POC ABG HCO3 32.4 (22-26 mml/L) 05/14/19 04:34 ABG HCO3 30.9 mmol/L (20.0-26.0) H 05/13/19 04:30 POC ABG Total CO2 34 (23-27mmol/L) 05/14/19 04:34 POC ABG O2 Sat 97 05/14/19 04:34 ABG O2 Saturation 97.5 % (95.0-99.0) 05/13/19 04:30 ABG O2 Content 13.1 (0.0-44) 05/13/19 04:30 POC ABG Base Excess 6 ((-2) - (+3)mmol/L) 05/14/19 04:34 ABG Base Excess 3.2 mmol/L (-2.0-3.0) H 05/13/19 04:30 ABG Hemoglobin 9.6 gm/dl (14.0-18.0) L 05/13/19 04:30 ABG Carboxyhemoglobin 1.5 % (0.0-5.0) 05/13/19 04:30 ABG Methemoglobin 0.5 % (0.0-1.5) 05/13/19 04:30 Oxyhemoglobin 95.6 % (95.0-99.0) 05/13/19 04:30 FiO2 60 % 05/14/19 04:34 Sodium 135 mmol/L (137-145) L D 05/14/19 04:00 Potassium 4.0 mmol/L (3.6-5.0) 05/14/19 04:00 Chloride 101.6 mmol/L (98-107) 05/14/19 04:00 Carbon Dioxide 25 mmol/L (22-30) 05/14/19 04:00 Anion Gap 15 mmol/L 05/14/19 04:00 BUN 57 mg/dL (9-20) H 05/14/19 04:00 Creatinine 2.2 mg/dL (0.8-1.5) H 05/14/19 04:00 Estimated GFR 42 ml/min 05/14/19 04:00 BUN/Creatinine Ratio 26 % 05/14/19 04:00 Glucose 115 mg/dL (75-100) H 05/14/19 04:00 POC Glucose 110 (70-105) H 05/14/19 12:11 Osmolality 327 Mosm/kg 05/07/19 13:45 Uric Acid 18.0 mg/dL (3.5-7.6) H 05/07/19 13:45 Calcium 8.1 mg/dL (8.4-10.2) L 05/14/19 04:00 Phosphorus 4.90 mg/dL (2.5-4.5) H 05/02/19 00:06 Magnesium 2.30 mg/dL (1.7-2.3) 05/02/19 00:06 Total Bilirubin 0.20 mg/dL (0.1-1.2) 05/10/19 05:00 AST 34 units/L (5-40) 05/10/19 05:00 ALT 35 units/L (7-56) 05/10/19 05:00 Alkaline Phosphatase 45 units/L (35-129) 05/10/19 05:00 Total Creatine Kinase 131 units/L (55-170) 05/02/19 04:41 CK-MB (CK-2) 5.2 ng/mL (0.0-4.0) H 05/02/19 04:41 CK-MB (CK-2) Rel Index 3.9 (0-4) 05/02/19 04:41 Troponin T 0.067 ng/mL (0.00-0.029) H D 05/02/19 04:41 NT-Pro-B Natriuret Pep 6831 pg/mL (0-450) H 05/01/19 Unknown Total Protein 6.1 g/dL (6.3-8.2) L 05/10/19 05:00 Albumin 2.5 g/dL (3.9-5) L 05/10/19 05:00 Albumin/Globulin Ratio 0.7 % 05/10/19 05:00 Triglycerides 130 mg/dL (2-149) 05/13/19 06:30 Cholesterol 173 mg/dL (50-199) 05/02/19 00:06 LDL Cholesterol Direct 126 mg/dL (50-130) 05/02/19 00:06 HDL Cholesterol 18 mg/dL (40-59) L 05/02/19 00:06 Cholesterol/HDL Ratio 9.61 % 05/02/19 00:06 Procalcitonin 0.54 ng/mL (<0.15) 05/03/19 11:52 Urine Color Yellow (Yellow) 05/03/19 10:55 Urine Turbidity Turbid (Clear) 05/03/19 10:55 Urine pH 5.0 (5.0-7.0) 05/03/19 10:55 Ur Specific [place] 1.014 (1.003-1.030) 05/03/19 10:55 Urine Protein <15 mg/dl mg/dL (Negative) 05/03/19 10:55 Urine Glucose (UA) Neg mg/dL (Negative) 05/03/19 10:55 Urine Ketones Neg mg/dL (Negative) 05/03/19 10:55 Urine Blood Lg (Negative) 05/03/19 10:55 Urine Nitrite Neg (Negative) 05/03/19 10:55 Urine Bilirubin Neg (Negative) 05/03/19 10:55 Urine Urobilinogen < 2.0 mg/dL (<2.0) 05/03/19 10:55 Ur Leukocyte Esterase Mod (Negative) 05/03/19 10:55 Urine WBC (Auto) 33.0 /HPF (0.0-6.0) H 05/03/19 10:55 Urine RBC (Auto) 8.0 /HPF (0.0-6.0) 05/03/19 10:55 Urine Bacteria (Auto) 1+ /HPF (Negative) 05/03/19 10:55 Uric Acid Crystals 3+ 05/03/19 10:55 Urine Mucus Few /HPF 05/03/19 10:55 Urine Creatinine 292.8 mg/dL (0.1-20.0) H 05/07/19 22:40 Urine Sodium 11 mmol/L 05/07/19 22:40 Urine Total Protein 269 mg/dL (5-11.8) H 05/07/19 22:40 Random Vancomycin 5.8 ug/mL (0-40.0) 05/12/19 08:15 AMNA Screen Negative (Negative) 05/07/19 13:45 Hepatitis A IgM Ab Non-reactive (NonReactive) 05/07/19 13:45 Hep Bs Antigen Non-reactive (Negative) 05/07/19 13:45 Hep B Core IgM Ab Non-reactive (NonReactive) 05/07/19 13:45 Hepatitis C Antibody Non-reactive (NonReactive) 05/07/19 13:45 Active Medications - Current Medications Current Medications: Generic Name Dose Route Start Last Admin Trade Name Freq PRN Reason Stop Dose Admin Acetaminophen 650 mg 05/01/19 22:46 05/11/19 19:46 Tylenol PO 650 mg Q4H PRN Administration Pain MILD(1-3)/Fever >100.5/FREEMAN Lipase/Protease/Amylase 1 each 05/14/19 15:01 Pancreaze 10,500 Unit FEEDTUBE PRN PRN For Clogged Feeding Tube Dextrose 50 gm 05/01/19 20:24 D50w (25gm) Vial IV Q30MIN PRN Hypoglycemia Protocol Enoxaparin Sodium 40 mg 05/13/19 10:00 05/14/19 09:10 Enoxaparin SUB-Q 40 mg QDAY@1000 VICKEY Administration Famotidine 20 mg 05/12/19 22:00 05/14/19 09:10 Pepcid PO 20 mg BID VICKEY Administration Hydralazine HCl 20 mg 05/13/19 08:09 05/13/19 14:12 Apresoline IV 20 mg Q4HR PRN Administration SBP >/=160 Hydrophilic Ointment 1 applic 05/01/19 21:14 Vaseline Lip Therapy TP Q2HR PRN Dry Lips Fentanyl Citrate 2,000 mcg in 100 mls @ 10.195 mls/hr 05/01/19 22:00 05/14/19 10:04 Fentanyl Drip Premix IV 2 mcg/kg/hr TITR VICKEY 20.39 mls/hr Administration Protocol 1 MCG/KG/HR Propofol 1,000 mg in 100 mls @ 7.011 mls/hr 05/03/19 04:00 05/14/19 12:03 Diprivan 10 Mg/Ml IV 20 mcg/kg/min TITR VICKEY 28.044 mls/hr Administration Protocol 5 MCG/KG/MIN Norepinephrine 4 mg in 250 mls @ 7.5 mls/hr 05/03/19 18:00 Levophed Drip 4 Mg/Ns 250 Ml IV TITR VICKEY Protocol 2 MCG/MIN Sodium Chloride 500 mls @ 10 mls/hr 05/06/19 15:00 Nacl 0.9% 500 Ml IV DIRECT VICKEY Ceftriaxone Sodium 2 gm in 100 mls @ 200 mls/hr 05/07/19 22:00 05/14/19 09:09 Rocephin/Ns 2 Gm/100 Ml IV 200 mls/hr Q12HR VICKEY Administration Protocol Metronidazole 500 mg in 100 mls @ 100 mls/hr 05/11/19 14:00 05/14/19 13:52 Flagyl 500 Mg/100 Ml IV 100 mls/hr Q8HR VICKEY Administration Protocol Vancomycin HCl 2,000 mg/ 540 mls @ 250 mls/hr 05/12/19 11:00 05/14/19 09:09 Sodium Chloride IV 250 mls/hr Q24HR VICKEY Administration Nicardipine HCl 50 mg/ Sodium 250 mls @ 25 mls/hr 05/13/19 10:00 05/13/19 21:46 Chloride IV 0 mg/hr TITR VICKEY 0 mls/hr Titration Protocol 5 MG/HR Labetalol HCl 100 mg 05/14/19 14:00 05/14/19 13:53 Labetalol PO 100 mg Q8HR VICKEY Administration Levetiracetam 750 mg 05/13/19 10:00 05/14/19 09:10 Keppra PO 750 mg BID VICKEY Administration Lorazepam 2 mg 05/06/19 06:22 05/10/19 16:17 Ativan IV 2 mg Q4H PRN Administration Seizures/AGITATION Multi-Ingred Cream/Lotion/Oil/Oint 1 applic 05/01/19 21:14 Artificial Tears Ophth Oint OU Q4HR PRN Dry Eye(s) Ondansetron HCl 4 mg 05/01/19 22:46 Zofran IV Q8H PRN Nausea And Vomiting Simple Syrup 15 ml 05/14/19 15:01 Simple Syrup FEEDTUBE PRN PRN Hypoglycemia Simple Syrup 30 ml 05/14/19 15:01 Simple Syrup FEEDTUBE PRN PRN Hypoglycemia Sodium Bicarbonate 325 mg 05/14/19 15:01 Sodium Bicarbonate FEEDTUBE PRN PRN For Clogged Feeding Tube Sodium Chloride 10 ml 05/02/19 10:00 05/14/19 09:11 Sodium Chloride Flush Syringe 10 Ml IV 10 ml BID VICKEY Administration Sodium Chloride 10 ml 05/01/19 22:46 05/05/19 02:28 Sodium Chloride Flush Syringe 10 Ml IV 10 ml PRN PRN Administration LINE FLUSH Nutrition/Malnutrition Assess - Dietary Evaluation Nutrition/Malnutrition Findings: Nutrition Notes Start: 05/04/19 12:54 Freq: Status: Active Protocol: Document 05/14/19 10:48 DW (Rec: 05/14/19 11:32 DW [id number]) Co-Sign 05/14/19 10:48 LP Nutrition Notes Initial or Follow up Reassessment Current Diagnosis Acute Kidney Injury,Sepsis, Respiratory Failure Current Diet Nepro 1.8 at 60ml/hr Labs/Tests Na 135 BUN 57 Cr 2.2 Pertinent Medications Propofol at 7.011 ml/hr (185 kcal) Height 6 ft 4 in Weight 227.5 kg [place] Body Weight (kg) 91.81 BMI 61.0 Weight Status Morbidly Obese Subjective/Other Information FU TF tolerance and Na labs Upon arrival noticed Nepro 1.8 running at goal of 50ml/hr Na lab did big jump from 05/11 of Na 145 to 135 today. Flush to decrease to 200ml qh4 Percent of energy/protein needs met: 86%/43% Burn Absent Trauma Absent Current % PO Negligible Minimum of two criteria No physical signs of malnutrition #1 Nutrition Diagnosis Inadequate oral intake Diagnosis Progress(for reassessment Continues documentation) Is patient on ventilator? Yes Is Patient Ambulatory and/or Out of Bed No REE-([facility]-confined to bed) 3986.244 Kcal/Kg value to use for calculation 11 Approximate Energy Requirements Using 2503 kcal/Kg Calculation Used for Recommendations Kcal/kg Additional Notes PRO needs: 225 g (up to 2.5 g/ kg 91.81 IBW) Fluid needs: 1 ml/kcal Nutrition Intervention Change Diet Order: Continue TF Nutrition Support: Nepro 1.8 at 50 ml/hr flush 200 ml q4hr once Kcal 2,160 Protein (gm) 97 Fluid (mL) 872 Goal #1 TF tolerance Goal #2 Meet at least 75% kcal/PRO needs via TF Anticipated Discharge Needs: Unable to determine at this time Follow-Up By: 05/21/19 Additional Comments F/U for TF tolerance
[2019-05-14] MEDS: hydrALAZINE 20 MG/1 ML INJ IV PRN (18:09)
[2019-05-14] MEDS: niCARdipine 50 MG in SODIUM CHLORIDE 0.9% 250ML 230 ML IV SCH (20:30)
[2019-05-15] MEDS: fentaNYL DRIP Premix 2,000 MCG/100 ML BAG IV SCH ×6 (02:45→23:43)
[2019-05-15] MEDS: metroNIDAZOLE/NS 500 MG/100 ML 500 MG/100 ML BAG IV SCH ×3 (06:25→22:12)
[2019-05-15 06:41] LABS: ABG Base Excess 2.2 mmol/L (-2.0-3.0); ABG HCO3 28.2 mmol/L (20.0-26.0); ABG Methemoglobin 0.4 % (0.0-1.5); ABG Oxygen Saturation 96.6 % (95.0-99.0); ABG PCO2 53.2 mm Hg; ABG PH 7.342 pH Units (7.350-7.450); ABG PO2 79.1 mm Hg (80.0-90.0)
[2019-05-15] MEDS: levETIRAcetam 500 MG/5 ML ORAL LIQD PO SCH ×2 (10:11→22:13)
[2019-05-15] MEDS: FAMOTIDINE 20 MG TAB PO SCH ×2 (10:12→22:12)
[2019-05-15] MEDS: VANCOMYCIN 2,000 MG in SODIUM CHLORIDE 0.9% 500 ML 500 ML IV SCH (10:12)
[2019-05-15] MEDS: cefTRIAXone/NS 2 GM/100 ML 2 GM/100 ML BAG IV SCH ×2 (10:12→22:12)
[2019-05-15] MEDS: ENOXAPARIN 40 MG/0.4 ML INJ SUB-Q SCH (10:12)
--- NOTE | 2019-05-15 11:03 | Progress Note ---
Assessment and Plan # Acute kidney injury: creatinine remains higher than presumed baseline of 1.9 on 05/03/2019, cr is stable, follow up dialy lytes, Suspect tubular injury in setting of sepsis, respiratory failure, hypotension. - continue supportive measures, appreciate pulm and ID input - avoid nephrotoxins - diuresis prn per pulm. Would ideally like to avoid over diuresis due to risk to renal tubule recovery, no indication for diuretic today from renal perspective, defer to pulmonary - still unable to visualize left kidney on ultrasound; may consider CT abd/pelvis if renal function worsens - no indication for renal replacement therapy - follow vanc levels # Hypernatremia: free water flushes with TF # HTN: BP reasonable, continue current management # Anemia: pRBC transfusion prn # Encephalopathy, seizure disorder, hypoxic respiratory failure, fever: ID and pulm following Subjective Date of service: 05/15/19 Principal diagnosis: HF; acute hypoxemic resp failure, SIRS, CARLA Interval history: resting in bed today Objective - Exam Narrative Exam: General: No acute distress/ intubated and sedated HEENT: ET tube in place Neck: Supple Chest:coarse mechanical breath sounds, PRVC with FiO2 50% Heart: Regular rate and rhythm Abdomen: Soft nontender Extremity: no edema Psych: sedated Derm: No petechial rash - Vital Signs Vital signs: Vital Signs - 12hr 05/14/19 05/14/19 05/14/19 23:15 23:30 23:34 Temperature 99 F Pulse Rate 94 H 94 H Pulse Rate [ From Monitor] Respiratory 18 17 Rate Blood Pressure 130/40 130/45 O2 Sat by Pulse 89 90 Oximetry 05/14/19 05/15/19 05/15/19 23:45 00:00 00:09 Temperature Pulse Rate 93 H 91 H 91 H Pulse Rate [ 96 H From Monitor] Respiratory 18 23 18 Rate Blood Pressure 131/45 126/39 130/45 O2 Sat by Pulse 92 91 90 Oximetry 05/15/19 05/15/19 05/15/19 00:15 00:30 00:45 Temperature Pulse Rate 92 H 93 H 93 H Pulse Rate [ From Monitor] Respiratory 25 H 17 20 Rate Blood Pressure 125/44 132/44 127/45 O2 Sat by Pulse 90 93 92 Oximetry 05/15/19 05/15/19 05/15/19 00:58 01:00 01:15 Temperature Pulse Rate 94 H 93 H 94 H Pulse Rate [ From Monitor] Respiratory 22 12 Rate Blood Pressure 127/45 131/47 130/45 O2 Sat by Pulse 92 92 92 Oximetry 05/15/19 05/15/19 05/15/19 01:30 01:45 02:00 Temperature Pulse Rate 93 H 91 H 91 H Pulse Rate [ From Monitor] Respiratory 17 18 21 Rate Blood Pressure 126/45 125/43 127/46 O2 Sat by Pulse 92 93 95 Oximetry 05/15/19 05/15/19 05/15/19 02:15 02:30 02:45 Temperature Pulse Rate 99 H 100 H 96 H Pulse Rate [ From Monitor] Respiratory 12 16 16 Rate Blood Pressure 125/49 136/56 132/49 O2 Sat by Pulse 92 93 93 Oximetry 05/15/19 05/15/19 05/15/19 03:00 03:08 03:15 Temperature 99.2 F Pulse Rate 90 88 Pulse Rate [ From Monitor] Respiratory 14 14 Rate Blood Pressure 122/44 120/41 O2 Sat by Pulse 93 93 Oximetry 05/15/19 05/15/19 05/15/19 03:30 03:45 04:00 Temperature Pulse Rate 90 91 H 91 H Pulse Rate [ 91 H From Monitor] Respiratory 22 15 24 Rate Blood Pressure 124/48 126/43 122/52 O2 Sat by Pulse 93 94 93 Oximetry 05/15/19 05/15/19 05/15/19 04:15 04:30 04:31 Temperature Pulse Rate 90 90 90 Pulse Rate [ From Monitor] Respiratory 12 15 Rate Blood Pressure 126/48 126/50 126/50 O2 Sat by Pulse 93 95 95 Oximetry 05/15/19 05/15/19 05/15/19 04:45 05:00 05:15 Temperature Pulse Rate 91 H 89 90 Pulse Rate [ From Monitor] Respiratory 14 27 H 15 Rate Blood Pressure 119/49 124/46 124/44 O2 Sat by Pulse 92 93 95 Oximetry 05/15/19 05/15/19 05/15/19 05:30 05:45 06:01 Temperature Pulse Rate 88 86 Pulse Rate [ From Monitor] Respiratory 18 23 Rate Blood Pressure 119/47 118/46 118/46 O2 Sat by Pulse 94 94 92 Oximetry 05/15/19 05/15/19 05/15/19 06:15 06:26 06:30 Temperature Pulse Rate 101 H 100 H 100 H Pulse Rate [ From Monitor] Respiratory 19 13 Rate Blood Pressure 157/74 157/74 135/59 O2 Sat by Pulse 91 93 Oximetry 05/15/19 05/15/19 05/15/19 06:45 07:00 07:15 Temperature Pulse Rate 106 H 104 H 101 H Pulse Rate [ From Monitor] Respiratory 22 18 10 L Rate Blood Pressure 145/67 141/66 135/63 O2 Sat by Pulse 91 91 92 Oximetry 05/15/19 05/15/19 05/15/19 07:30 07:45 08:00 Temperature Pulse Rate 100 H 100 H 89 Pulse Rate [ 96 H From Monitor] Respiratory 17 11 L 21 Rate Blood Pressure 143/71 159/71 141/64 O2 Sat by Pulse 93 92 95 Oximetry - Lab 05/14/19 04:00 05/14/19 04:00 Most recent lab results ABG pH 7.342 pH Units (7.350-7.450) L 05/15/19 05:10 ABG pCO2 53.2 mm Hg 05/15/19 05:10 ABG pO2 79.1 mm Hg (80.0-90.0) L 05/15/19 05:10 ABG HCO3 28.2 mmol/L (20.0-26.0) H 05/15/19 05:10 ABG O2 Saturation 96.6 % (95.0-99.0) 05/15/19 05:10 Calcium 8.1 mg/dL (8.4-10.2) L 05/14/19 04:00 Phosphorus 4.90 mg/dL (2.5-4.5) H 05/02/19 00:06 Magnesium 2.30 mg/dL (1.7-2.3) 05/02/19 00:06 Urine Creatinine 292.8 mg/dL (0.1-20.0) H 05/07/19 22:40 Urine Sodium 11 mmol/L 05/07/19 22:40 Urine Total Protein 269 mg/dL (5-11.8) H 05/07/19 22:40 Medications & Allergies - Medications Allergies/Adverse Reactions: Allergies No Known Allergies Allergy (Verified 05/01/19 20:27) Home Medications: Home Medications Medication Instructions Recorded Confirmed Last Taken Type No Known Home Medications [No 05/03/19 05/03/19 Unknown History Reported Home Medications] Active Medications: Generic Name Dose Route Start Last Admin Trade Name Gabrieleq PRN Reason Stop Dose Admin Acetaminophen 650 mg 05/01/19 22:46 05/11/19 19:46 Tylenol PO 650 mg Q4H PRN Administration Pain MILD(1-3)/Fever >100.5/FREEMAN Lipase/Protease/Amylase 1 each 05/14/19 15:01 Pancremannie [place] 10,500 Unit FEEDTUBE PRN PRN For Clogged Feeding Tube Dextrose 50 gm 05/01/19 20:24 D50w (25gm) Vial IV Q30MIN PRN Hypoglycemia Protocol Enoxaparin Sodium 40 mg 05/13/19 10:00 05/15/19 10:12 Enoxaparin SUB-Q 40 mg QDAY@1000 VICKEY Administration Famotidine 20 mg 05/12/19 22:00 05/15/19 10:12 Pepcid PO 20 mg BID VICKEY Administration Hydralazine HCl 20 mg 05/13/19 08:09 05/14/19 18:09 Apresoline IV 20 mg Q4HR PRN Administration SBP >/=160 Hydrophilic Ointment 1 applic 05/01/19 21:14 Vaseline Lip Therapy TP Q2HR PRN Dry Lips Fentanyl Citrate 2,000 mcg in 100 mls @ 10.195 mls/hr 05/01/19 22:00 05/15/19 07:35 Fentanyl Drip Premix IV 2 mcg/kg/hr TITR VICKEY 20.39 mls/hr Titration Protocol 1 MCG/KG/HR Propofol 1,000 mg in 100 mls @ 7.011 mls/hr 05/03/19 04:00 05/15/19 09:07 Diprivan 10 Mg/Ml IV 20 mcg/kg/min TITR VICKEY 28.044 mls/hr Administration Protocol 5 MCG/KG/MIN Norepinephrine 4 mg in 250 mls @ 7.5 mls/hr 05/03/19 18:00 Levophed Drip 4 Mg/Ns 250 Ml IV TITR VICKEY Protocol 2 MCG/MIN Sodium Chloride 500 mls @ 10 mls/hr 05/06/19 15:00 Nacl 0.9% 500 Ml IV DIRECT VICKEY Ceftriaxone Sodium 2 gm in 100 mls @ 200 mls/hr 05/07/19 22:00 05/15/19 10:12 Rocephin/Ns 2 Gm/100 Ml IV 200 mls/hr Q12HR VICKEY Administration Protocol Metronidazole 500 mg in 100 mls @ 100 mls/hr 05/11/19 14:00 05/15/19 06:25 Flagyl 500 Mg/100 Ml IV 100 mls/hr Q8HR VICKEY Administration Protocol Vancomycin HCl 2,000 mg/ 540 mls @ 250 mls/hr 05/12/19 11:00 05/15/19 10:12 Sodium Chloride IV 250 mls/hr Q24HR VICKEY Administration Nicardipine HCl 50 mg/ Sodium 250 mls @ 25 mls/hr 05/13/19 10:00 05/14/19 23:12 Chloride IV 0 mg/hr TITR VICKEY 0 mls/hr Titration Protocol 5 MG/HR Labetalol HCl 100 mg 05/14/19 14:00 05/15/19 06:26 Labetalol PO 100 mg Q8HR VICKEY Administration Levetiracetam 750 mg 05/13/19 10:00 05/15/19 10:11 Keppra PO 750 mg BID VICKEY Administration Lorazepam 2 mg 05/06/19 06:22 05/10/19 16:17 Ativan IV 2 mg Q4H PRN Administration Seizures/AGITATION Multi-Ingred Cream/Lotion/Oil/Oint 1 applic 05/01/19 21:14 Artificial Tears Ophth Oint OU Q4HR PRN Dry Eye(s) Ondansetron HCl 4 mg 05/01/19 22:46 Zofran IV Q8H PRN Nausea And Vomiting Simple Syrup 15 ml 05/14/19 15:01 Simple Syrup FEEDTUBE PRN PRN Hypoglycemia Simple Syrup 30 ml 05/14/19 15:01 Simple Syrup FEEDTUBE PRN PRN Hypoglycemia Sodium Bicarbonate 325 mg 05/14/19 15:01 Sodium Bicarbonate FEEDTUBE PRN PRN For Clogged Feeding Tube Sodium Chloride 10 ml 05/02/19 10:00 05/15/19 10:12 Sodium Chloride Flush Syringe 10 Ml IV 10 ml BID VICKEY Administration Sodium Chloride 10 ml 05/01/19 22:46 05/05/19 02:28 Sodium Chloride Flush Syringe 10 Ml IV 10 ml PRN PRN Administration LINE FLUSH
--- NOTE | 2019-05-15 12:25 | Progress Note ---
Assessment and Plan Cultures: Blood cultures 05/11/19: no growth thus far Sputum culture 05/11/19: no growth thus far urine culture: no growth resp culture: no growth A/P: 34-year-old male with obesity admitted with: #Fever, SIRS: Patient was afebrile for the first 2 days of hospitalization, then he developed a fever of 101.2F. ?aspiration related. Apparently was using CPAP. Now febrile again, ?UTI. UA showed pyuria, had indwelling Berkowitz which was removed. Urine culture with no growth. #Acute hypoxic hypercapneic respiratory failure, possibly obesity hypoventil ation syndrome: on the vent. Pulmonary managing. #Morbid obesity #CARLA: creatinine elevated. dose abx accordingly. #Elevated LFTs: RUQ US showed fatty liver, small GB sludge. Improving. #Acute encephalopathy with ?seizure activity: persistent fevers. Agree with possible meningitis coverage Recs: Continue empiric meningitis coverage with Ceftriaxone, Vancomycin Also on Flagyl for concern for aspiration Would complete 2 weeks of therapy, expected stop date 05/21 Dr. Bearden back tomorrow. Burke Wilks MD, FACP [facility] C: [phone] O: [phone] F: [phone] Subjective Date of service: 05/15/19 Principal diagnosis: HF; acute hypoxemic resp failure, SIRS, CARLA Interval history: No fever. Remains sedated, intubated, on the vent. Objective - Exam Narrative Exam: Physical Exam: Constitutional: sedated, intubated. Morbid obesity Head, Ears, Nose: Normocephalic, atraumatic. External ears, nose normal Eyes: Conjunctivae/corneas clear. No icterus. No ptosis. Neck: intubated Oral: intubated Cardiovascular: S1, S2 normal. Respiratory: Good air entry, clear to auscultation bilaterally GI: Soft, non-tender; bowel sounds normal. No peritoneal signs Musculoskeletal: No pedal edema, no cyanosis. Skin: No rash or abscess Hem/Lymphatic: No palpable cervical or supraclavicular nodes. No lymphangitis Psych: no agitation Neurological: sedated, intubated, on vent - Constitutional Vitals: Vital Signs Temp Pulse Resp BP Pulse Ox 98.6 F 96 H 21 141/64 95 05/15/19 12:00 05/15/19 08:00 05/15/19 08:00 05/15/19 08:00 05/15/19 08:00 Temperature -Last 24 Hours Temperature 98.6 F Temperature 99.2 F Temperature 99 F Temperature 98.9 F Temperature 98.5 F - Labs CBC & Chem 7: 05/14/19 04:00 05/14/19 04:00 Labs: Abnormal lab results 05/15/19 05/15/19 05/15/19 Range/Units 05:10 05:24 09:00 ABG pH 7.342 L (7.350-7.450) pH Units ABG pO2 79.1 L (80.0-90.0) mm Hg ABG HCO3 28.2 H (20.0-26.0) mmol/L ABG Hemoglobin 7.0 L (14.0-18.0) gm/dl Oxyhemoglobin 94.4 L (95.0-99.0) % POC Glucose 116 H (70-105) Vancomycin Trough 20.5 H (5.0-20.0) ug/mL
--- NOTE | 2019-05-15 14:43 | Progress Note ---
Assessment and Plan 34 y/o male with acute hypoxic, hypercapnic respiratory failure currently ventilated and sedated, now with persistent fevers and seizure. 1. Neuro: EEG shows no seizures. 2. Pulm: continue to wean FiO2 for sats >88% and or PaO2 of greater than 55. Do not wean PEEP until FiO2 is at 50% or lower. Permissive hypercapnea is ok as long as pH is not lower than 7.2. Will start weaning PEEP again tomorrow 3. Renal: Cr improved to less than 3.0, making urine. Hold diuresis. Stop D5 as patient is tolerating tube feeds 4. Fever: Afebrile now the last 24 hours. 5. Day number of 14 of intubation. CCT 31 minutes. Subjective Date of service: 05/15/19 Principal diagnosis: HF; acute hypoxemic resp failure, SIRS, CARLA Interval history: no acute events. Down to 50%. I dropped to 45% once I went in the room. Remains sedated. Objective Vital Signs - 12hr 05/15/19 05/15/19 05/15/19 02:45 03:00 03:08 Temperature 99.2 F Pulse Rate 96 H 90 Pulse Rate [ From Monitor] Respiratory 16 14 Rate Blood Pressure 132/49 122/44 O2 Sat by Pulse 93 93 Oximetry 05/15/19 05/15/19 05/15/19 03:15 03:30 03:45 Temperature Pulse Rate 88 90 91 H Pulse Rate [ From Monitor] Respiratory 14 22 15 Rate Blood Pressure 120/41 124/48 126/43 O2 Sat by Pulse 93 93 94 Oximetry 05/15/19 05/15/19 05/15/19 04:00 04:15 04:30 Temperature Pulse Rate 91 H 90 90 Pulse Rate [ 91 H From Monitor] Respiratory 24 12 15 Rate Blood Pressure 122/52 126/48 126/50 O2 Sat by Pulse 93 93 95 Oximetry 05/15/19 05/15/19 05/15/19 04:31 04:45 05:00 Temperature Pulse Rate 90 91 H 89 Pulse Rate [ From Monitor] Respiratory 14 27 H Rate Blood Pressure 126/50 119/49 124/46 O2 Sat by Pulse 95 92 93 Oximetry 05/15/19 05/15/19 05/15/19 05:15 05:30 05:45 Temperature Pulse Rate 90 88 86 Pulse Rate [ From Monitor] Respiratory 15 18 23 Rate Blood Pressure 124/44 119/47 118/46 O2 Sat by Pulse 95 94 94 Oximetry 05/15/19 05/15/19 05/15/19 06:01 06:15 06:26 Temperature Pulse Rate 101 H 100 H Pulse Rate [ From Monitor] Respiratory 19 Rate Blood Pressure 118/46 157/74 157/74 O2 Sat by Pulse 92 91 Oximetry 05/15/19 05/15/19 05/15/19 06:30 06:45 07:00 Temperature Pulse Rate 100 H 106 H 104 H Pulse Rate [ From Monitor] Respiratory 13 22 18 Rate Blood Pressure 135/59 145/67 141/66 O2 Sat by Pulse 93 91 91 Oximetry 05/15/19 05/15/19 05/15/19 07:15 07:30 07:45 Temperature Pulse Rate 101 H 100 H 100 H Pulse Rate [ From Monitor] Respiratory 10 L 17 11 L Rate Blood Pressure 135/63 143/71 159/71 O2 Sat by Pulse 92 93 92 Oximetry 05/15/19 05/15/19 05/15/19 08:00 08:15 08:30 Temperature Pulse Rate 86 92 H 91 H Pulse Rate [ 96 H From Monitor] Respiratory 21 25 H 22 Rate Blood Pressure 141/64 143/65 139/65 O2 Sat by Pulse 95 92 93 Oximetry 05/15/19 05/15/19 05/15/19 08:45 09:00 09:15 Temperature Pulse Rate 91 H 90 91 H Pulse Rate [ From Monitor] Respiratory 23 24 21 Rate Blood Pressure 143/68 141/64 145/64 O2 Sat by Pulse 93 92 91 Oximetry 05/15/19 05/15/19 05/15/19 09:30 09:45 10:00 Temperature Pulse Rate 87 85 84 Pulse Rate [ From Monitor] Respiratory 20 24 22 Rate Blood Pressure 137/65 135/56 136/57 O2 Sat by Pulse 93 93 94 Oximetry 05/15/19 05/15/19 05/15/19 10:15 10:30 10:45 Temperature Pulse Rate 85 87 85 Pulse Rate [ From Monitor] Respiratory 22 22 22 Rate Blood Pressure 131/56 133/56 134/57 O2 Sat by Pulse 94 94 94 Oximetry 05/15/19 05/15/19 05/15/19 11:00 11:15 11:30 Temperature Pulse Rate 85 82 82 Pulse Rate [ From Monitor] Respiratory 23 23 22 Rate Blood Pressure 127/54 134/56 126/55 O2 Sat by Pulse 94 94 95 Oximetry 05/15/19 05/15/19 05/15/19 11:45 12:00 12:15 Temperature 98.6 F Pulse Rate 82 81 82 Pulse Rate [ 86 From Monitor] Respiratory 22 22 22 Rate Blood Pressure 126/56 128/52 109/48 O2 Sat by Pulse 95 95 94 Oximetry 05/15/19 05/15/19 05/15/19 12:21 12:30 13:15 Temperature Pulse Rate 82 82 85 Pulse Rate [ From Monitor] Respiratory 22 Rate Blood Pressure 109/48 106/47 111/51 O2 Sat by Pulse 96 95 Oximetry Constitutional: other (morbidly obese male, sedated on vent) Eyes: non-icteric Neck: other (extremely large in circumference) Effort: normal Ascultation: Bilateral: diminished breath sounds (secondary to body habitus) Cardiovascular: regular rate and rhythm (no mrg) Gastrointestinal: normoactive bowel sounds, other (obese) Integumentary: other (swelling of L hand due to blood pressure cuff and restraints, with non-infected appearing blister on thumb) Extremities: other (1+ generalized edema) Neurologic: unable to assess Psychiatric: other (unable to assess) CBC and BMP: 05/14/19 04:00 05/14/19 04:00 ABG, PT/INR, D-dimer: ABG POC ABG pH 7.328 (7.35-7.45) L 05/14/19 04:34 ABG pH 7.342 pH Units (7.350-7.450) L 05/15/19 05:10 POC ABG pCO2 61.7 (35-45) H 05/14/19 04:34 ABG pCO2 53.2 mm Hg 05/15/19 05:10 POC ABG pO2 99 (80-105) 05/14/19 04:34 ABG pO2 79.1 mm Hg (80.0-90.0) L 05/15/19 05:10 POC ABG HCO3 32.4 (22-26 mml/L) 05/14/19 04:34 POC ABG Total CO2 34 (23-27mmol/L) 05/14/19 04:34 POC ABG O2 Sat 97 05/14/19 04:34 ABG O2 Saturation 96.6 % (95.0-99.0) 05/15/19 05:10 PT/INR, D-dimer PT 15.4 Sec. (12.2-14.9) H 05/01/19 Unknown INR 1.23 (0.87-1.13) H 05/01/19 Unknown Abnormal lab findings: Abnormal Labs 05/01/19 05/01/19 05/01/19 17:50 19:26 22:36 WBC RBC Hgb Hct MCV MCH MCHC RDW Lymph % (Auto) [place] % (Auto) Lymph # [place] # Seg Neutrophils % Seg Neutrophils # PT INR APTT POC ABG pH 7.272 L 7.331 L ABG pH POC ABG pCO2 52.8 H POC ABG pO2 ABG pO2 ABG HCO3 ABG O2 Saturation ABG Base Excess ABG Hemoglobin Oxyhemoglobin Sodium 136 L Potassium 6.5 H* Chloride 97.2 L Carbon Dioxide BUN 60 H Creatinine Glucose 113 H POC Glucose Uric Acid Calcium Phosphorus Magnesium 2.40 H AST 139 H ALT 154 H Total Creatine Kinase CK-MB (CK-2) Troponin T NT-Pro-B Natriuret Pep Total Protein Albumin 3.8 L Triglycerides HDL Cholesterol Urine WBC (Auto) Urine Creatinine Urine Total Protein Vancomycin Trough 05/01/19 05/01/19 05/01/19 Unknown Unknown Unknown WBC 16.1 H RBC Hgb Hct MCV MCH MCHC RDW 17.2 H Lymph % (Auto) [place] % (Auto) 9.6 H Lymph # [place] # 1.5 H Seg Neutrophils % 73.0 H Seg Neutrophils # 11.7 H PT 15.4 H INR 1.23 H APTT 22.7 L POC ABG pH ABG pH POC ABG pCO2 POC ABG pO2 ABG pO2 ABG HCO3 ABG O2 Saturation ABG Base Excess ABG Hemoglobin Oxyhemoglobin Sodium Potassium Chloride Carbon Dioxide BUN Creatinine Glucose POC Glucose Uric Acid Calcium Phosphorus Magnesium AST ALT Total Creatine Kinase CK-MB (CK-2) Troponin T NT-Pro-B Natriuret Pep 6831 H Total Protein Albumin Triglycerides HDL Cholesterol Urine WBC (Auto) Urine Creatinine Urine Total Protein Vancomycin Trough 05/01/19 05/02/19 05/02/19 Unknown 00:06 00:06 WBC RBC Hgb Hct MCV MCH MCHC RDW Lymph % (Auto) [place] % (Auto) Lymph # [place] # Seg Neutrophils % Seg Neutrophils # PT INR APTT POC ABG pH ABG pH POC ABG pCO2 POC ABG pO2 ABG pO2 ABG HCO3 ABG O2 Saturation ABG Base Excess ABG Hemoglobin Oxyhemoglobin Sodium Potassium Chloride Carbon Dioxide BUN Creatinine Glucose POC Glucose Uric Acid Calcium Phosphorus 4.90 H Magnesium AST ALT Total Creatine Kinase 226 H CK-MB (CK-2) 5.7 H Troponin T 0.044 H NT-Pro-B Natriuret Pep Total Protein Albumin Triglycerides 182 H HDL Cholesterol 18 L Urine WBC (Auto) Urine Creatinine Urine Total Protein Vancomycin Trough 05/02/19 05/02/19 05/02/19 02:08 04:40 04:41 WBC 17.6 H RBC Hgb Hct MCV MCH 27 L MCHC RDW 17.4 H Lymph % (Auto) 10.2 L [place] % (Auto) 11.0 H Lymph # [place] # 1.9 H Seg Neutrophils % 78.0 H Seg Neutrophils # 13.8 H PT INR APTT POC ABG pH ABG pH POC ABG pCO2 46.8 H POC ABG pO2 63 L ABG pO2 ABG HCO3 ABG O2 Saturation ABG Base Excess ABG Hemoglobin Oxyhemoglobin Sodium Potassium Chloride 96.3 L Carbon Dioxide BUN 63 H Creatinine 1.7 H Glucose POC Glucose Uric Acid Calcium Phosphorus Magnesium AST ALT Total Creatine Kinase CK-MB (CK-2) Troponin T NT-Pro-B Natriuret Pep Total Protein Albumin Triglycerides HDL Cholesterol Urine WBC (Auto) Urine Creatinine Urine Total Protein Vancomycin Trough 05/02/19 05/02/19 05/02/19 04:41 04:41 16:05 WBC RBC Hgb Hct MCV MCH MCHC RDW Lymph % (Auto) [place] % (Auto) Lymph # [place] # Seg Neutrophils % Seg Neutrophils # PT INR APTT POC ABG pH ABG pH POC ABG pCO2 POC ABG pO2 ABG pO2 66.6 L ABG HCO3 31.9 H ABG O2 Saturation 92.5 L ABG Base Excess 5.8 H ABG Hemoglobin 13.3 L Oxyhemoglobin 90.6 L Sodium Potassium Chloride 97.2 L Carbon Dioxide BUN 61 H Creatinine 1.8 H Glucose POC Glucose Uric Acid Calcium Phosphorus Magnesium AST ALT Total Creatine Kinase CK-MB (CK-2) 5.2 H Troponin T 0.067 H D NT-Pro-B Natriuret Pep Total Protein Albumin Triglycerides HDL Cholesterol Urine WBC (Auto) Urine Creatinine Urine Total Protein Vancomycin Trough 05/02/19 05/03/19 05/03/19 20:39 04:35 05:05 WBC 11.8 H RBC Hgb Hct MCV MCH 27 L MCHC 31 L RDW 17.2 H Lymph % (Auto) [place] % (Auto) Lymph # [place] # Seg Neutrophils % Seg Neutrophils # PT INR APTT POC ABG pH ABG pH POC ABG pCO2 53.6 H 54.0 H POC ABG pO2 55 L 63 L ABG pO2 ABG HCO3 ABG O2 Saturation ABG Base Excess ABG Hemoglobin Oxyhemoglobin Sodium Potassium Chloride Carbon Dioxide BUN Creatinine Glucose POC Glucose Uric Acid Calcium Phosphorus Magnesium AST ALT Total Creatine Kinase CK-MB (CK-2) Troponin T NT-Pro-B Natriuret Pep Total Protein Albumin Triglycerides HDL Cholesterol Urine WBC (Auto) Urine Creatinine Urine Total Protein Vancomycin Trough 05/03/19 05/03/19 05/03/19 05:05 10:55 16:48 WBC RBC Hgb Hct MCV MCH MCHC RDW Lymph % (Auto) [place] % (Auto) Lymph # [place] # Seg Neutrophils % Seg Neutrophils # PT INR APTT POC ABG pH 7.604 H ABG pH POC ABG pCO2 POC ABG pO2 58 L ABG pO2 ABG HCO3 ABG O2 Saturation ABG Base Excess ABG Hemoglobin Oxyhemoglobin Sodium Potassium Chloride Carbon Dioxide BUN 52 H Creatinine 1.9 H Glucose 103 H POC Glucose Uric Acid Calcium Phosphorus Magnesium AST ALT Total Creatine Kinase CK-MB (CK-2) Troponin T NT-Pro-B Natriuret Pep Total Protein Albumin Triglycerides HDL Cholesterol Urine WBC (Auto) 33.0 H Urine Creatinine Urine Total Protein Vancomycin Trough 05/04/19 05/04/19 05/04/19 04:49 06:50 06:50 WBC 16.0 H RBC Hgb Hct MCV MCH 27 L MCHC 31 L RDW 17.8 H Lymph % (Auto) [place] % (Auto) Lymph # [place] # Seg Neutrophils % Seg Neutrophils # PT INR APTT POC ABG pH 7.273 L ABG pH POC ABG pCO2 POC ABG pO2 ABG pO2 ABG HCO3 ABG O2 Saturation ABG Base Excess ABG Hemoglobin Oxyhemoglobin Sodium 148 H Potassium 5.5 H Chloride Carbon Dioxide BUN 53 H Creatinine 3.3 H D Glucose 106 H POC Glucose Uric Acid Calcium 8.3 L Phosphorus Magnesium AST ALT Total Creatine Kinase CK-MB (CK-2) Troponin T NT-Pro-B Natriuret Pep Total Protein Albumin Triglycerides HDL Cholesterol Urine WBC (Auto) Urine Creatinine Urine Total Protein Vancomycin Trough 05/05/19 05/05/19 05/05/19 00:05 04:30 05:00 WBC RBC Hgb Hct MCV MCH MCHC RDW Lymph % (Auto) [place] % (Auto) Lymph # [place] # Seg Neutrophils % Seg Neutrophils # PT INR APTT POC ABG pH 7.225 L ABG pH POC ABG pCO2 > 70 H POC ABG pO2 ABG pO2 ABG HCO3 ABG O2 Saturation ABG Base Excess ABG Hemoglobin Oxyhemoglobin Sodium 151 H Potassium 5.1 H Chloride Carbon Dioxide BUN 64 H Creatinine 3.5 H Glucose 117 H POC Glucose 141 H Uric Acid Calcium 7.5 L Phosphorus Magnesium AST 93 H ALT 65 H Total Creatine Kinase CK-MB (CK-2) Troponin T NT-Pro-B Natriuret Pep Total Protein Albumin 2.9 L Triglycerides HDL Cholesterol Urine WBC (Auto) Urine Creatinine Urine Total Protein Vancomycin Trough 05/05/19 05/05/19 05/05/19 05:00 12:02 17:46 WBC 12.0 H RBC Hgb 11.3 L Hct MCV MCH 27 L MCHC 30 L RDW 18.4 H Lymph % (Auto) 7.9 L [place] % (Auto) 10.2 H Lymph # 1.0 L [place] # 1.2 H Seg Neutrophils % 80.8 H Seg Neutrophils # 9.7 H PT INR APTT POC ABG pH ABG pH POC ABG pCO2 POC ABG pO2 ABG pO2 ABG HCO3 ABG O2 Saturation ABG Base Excess ABG Hemoglobin Oxyhemoglobin Sodium Potassium Chloride Carbon Dioxide BUN Creatinine Glucose POC Glucose 125 H 112 H Uric Acid Calcium Phosphorus Magnesium AST ALT Total Creatine Kinase CK-MB (CK-2) Troponin T NT-Pro-B Natriuret Pep Total Protein Albumin Triglycerides HDL Cholesterol Urine WBC (Auto) Urine Creatinine Urine Total Protein Vancomycin Trough 05/05/19 05/06/19 05/06/19 23:42 03:58 04:45 WBC 11.4 H RBC Hgb 10.7 L Hct 34.2 L MCV MCH 27 L MCHC 31 L RDW 16.9 H Lymph % (Auto) [place] % (Auto) Lymph # [place] # Seg Neutrophils % Seg Neutrophils # PT INR APTT POC ABG pH ABG pH POC ABG pCO2 62.4 H POC ABG pO2 111 H ABG pO2 ABG HCO3 ABG O2 Saturation ABG Base Excess ABG Hemoglobin Oxyhemoglobin Sodium Potassium Chloride Carbon Dioxide BUN Creatinine Glucose POC Glucose 128 H Uric Acid Calcium Phosphorus Magnesium AST ALT Total Creatine Kinase CK-MB (CK-2) Troponin T NT-Pro-B Natriuret Pep Total Protein Albumin Triglycerides HDL Cholesterol Urine WBC (Auto) Urine Creatinine Urine Total Protein Vancomycin Trough 05/06/19 05/06/19 05/06/19 04:45 05:33 12:30 WBC RBC Hgb Hct MCV MCH MCHC RDW Lymph % (Auto) [place] % (Auto) Lymph # [place] # Seg Neutrophils % Seg Neutrophils # PT INR APTT POC ABG pH ABG pH POC ABG pCO2 POC ABG pO2 ABG pO2 ABG HCO3 ABG O2 Saturation ABG Base Excess ABG Hemoglobin Oxyhemoglobin Sodium 149 H Potassium Chloride Carbon Dioxide 31 H BUN 67 H Creatinine 3.2 H Glucose 125 H POC Glucose 117 H 116 H Uric Acid Calcium 7.5 L Phosphorus Magnesium AST ALT Total Creatine Kinase CK-MB (CK-2) Troponin T NT-Pro-B Natriuret Pep Total Protein Albumin Triglycerides HDL Cholesterol Urine WBC (Auto) Urine Creatinine Urine Total Protein Vancomycin Trough 05/06/19 05/06/19 05/07/19 18:34 23:16 05:22 WBC RBC Hgb Hct MCV MCH MCHC RDW Lymph % (Auto) [place] % (Auto) Lymph # [place] # Seg Neutrophils % Seg Neutrophils # PT INR APTT POC ABG pH ABG pH POC ABG pCO2 POC ABG pO2 ABG pO2 ABG HCO3 ABG O2 Saturation ABG Base Excess ABG Hemoglobin Oxyhemoglobin Sodium Potassium Chloride Carbon Dioxide BUN Creatinine Glucose POC Glucose 128 H 143 H 166 H Uric Acid Calcium Phosphorus Magnesium AST ALT Total Creatine Kinase CK-MB (CK-2) Troponin T NT-Pro-B Natriuret Pep Total Protein Albumin Triglycerides HDL Cholesterol Urine WBC (Auto) Urine Creatinine Urine Total Protein Vancomycin Trough 05/07/19 05/07/19 05/07/19 06:33 07:03 09:35 WBC RBC Hgb Hct MCV MCH MCHC RDW Lymph % (Auto) [place] % (Auto) Lymph # [place] # Seg Neutrophils % Seg Neutrophils # PT INR APTT POC ABG pH 7.263 L 7.288 L ABG pH POC ABG pCO2 POC ABG pO2 51 L 56 L ABG pO2 ABG HCO3 ABG O2 Saturation ABG Base Excess ABG Hemoglobin Oxyhemoglobin Sodium Potassium Chloride Carbon Dioxide BUN 76 H Creatinine 3.2 H Glucose 147 H POC Glucose Uric Acid Calcium 7.9 L Phosphorus Magnesium AST ALT Total Creatine Kinase CK-MB (CK-2) Troponin T NT-Pro-B Natriuret Pep Total Protein Albumin Triglycerides HDL Cholesterol Urine WBC (Auto) Urine Creatinine Urine Total Protein Vancomycin Trough 05/07/19 05/07/19 05/07/19 09:35 12:17 13:45 WBC 13.4 H RBC Hgb 11.6 L Hct MCV MCH 27 L MCHC 31 L RDW 17.5 H Lymph % (Auto) [place] % (Auto) Lymph # [place] # Seg Neutrophils % Seg Neutrophils # PT INR APTT POC ABG pH ABG pH POC ABG pCO2 POC ABG pO2 ABG pO2 ABG HCO3 ABG O2 Saturation ABG Base Excess ABG Hemoglobin Oxyhemoglobin Sodium Potassium Chloride Carbon Dioxide BUN Creatinine Glucose POC Glucose 130 H Uric Acid 18.0 H Calcium Phosphorus Magnesium AST ALT Total Creatine Kinase CK-MB (CK-2) Troponin T NT-Pro-B Natriuret Pep Total Protein Albumin Triglycerides HDL Cholesterol Urine WBC (Auto) Urine Creatinine Urine Total Protein Vancomycin Trough 05/07/19 05/07/19 05/08/19 17:39 22:40 05:06 WBC RBC Hgb Hct MCV MCH MCHC RDW Lymph % (Auto) [place] % (Auto) Lymph # [place] # Seg Neutrophils % Seg Neutrophils # PT INR APTT POC ABG pH ABG pH POC ABG pCO2 POC ABG pO2 ABG pO2 ABG HCO3 ABG O2 Saturation ABG Base Excess ABG Hemoglobin Oxyhemoglobin Sodium Potassium Chloride Carbon Dioxide BUN Creatinine Glucose POC Glucose 116 H 148 H Uric Acid Calcium Phosphorus Magnesium AST ALT Total Creatine Kinase CK-MB (CK-2) Troponin T NT-Pro-B Natriuret Pep Total Protein Albumin Triglycerides HDL Cholesterol Urine WBC (Auto) Urine Creatinine 292.8 H Urine Total Protein 269 H Vancomycin Trough 05/08/19 05/08/19 05/08/19 05:32 11:28 13:48 WBC RBC Hgb Hct MCV MCH MCHC RDW Lymph % (Auto) [place] % (Auto) Lymph # [place] # Seg Neutrophils % Seg Neutrophils # PT INR APTT POC ABG pH ABG pH POC ABG pCO2 45.4 H POC ABG pO2 64 L ABG pO2 ABG HCO3 ABG O2 Saturation ABG Base Excess ABG Hemoglobin Oxyhemoglobin Sodium Potassium Chloride Carbon Dioxide BUN 73 H Creatinine 2.7 H Glucose 127 H POC Glucose 107 H Uric Acid Calcium 7.6 L Phosphorus Magnesium AST ALT Total Creatine Kinase CK-MB (CK-2) Troponin T NT-Pro-B Natriuret Pep Total Protein Albumin Triglycerides HDL Cholesterol Urine WBC (Auto) Urine Creatinine Urine Total Protein Vancomycin Trough 05/08/19 05/09/19 05/09/19 17:48 04:50 04:53 WBC RBC 3.07 L Hgb 8.5 L D Hct 29.3 L D MCV 96 H MCH MCHC 29 L RDW 18.1 H Lymph % (Auto) [place] % (Auto) Lymph # [place] # Seg Neutrophils % Seg Neutrophils # PT INR APTT POC ABG pH 7.316 L ABG pH POC ABG pCO2 66.0 H POC ABG pO2 69 L ABG pO2 ABG HCO3 ABG O2 Saturation ABG Base Excess ABG Hemoglobin Oxyhemoglobin Sodium Potassium Chloride Carbon Dioxide BUN Creatinine Glucose POC Glucose 155 H Uric Acid Calcium Phosphorus Magnesium AST ALT Total Creatine Kinase CK-MB (CK-2) Troponin T NT-Pro-B Natriuret Pep Total Protein Albumin Triglycerides HDL Cholesterol Urine WBC (Auto) Urine Creatinine Urine Total Protein Vancomycin Trough 05/09/19 05/09/19 05/09/19 05:46 07:24 12:10 WBC RBC Hgb Hct MCV MCH MCHC RDW Lymph % (Auto) [place] % (Auto) Lymph # [place] # Seg Neutrophils % Seg Neutrophils # PT INR APTT POC ABG pH ABG pH POC ABG pCO2 POC ABG pO2 ABG pO2 ABG HCO3 ABG O2 Saturation ABG Base Excess ABG Hemoglobin Oxyhemoglobin Sodium Potassium Chloride Carbon Dioxide BUN 73 H Creatinine 2.4 H Glucose 153 H POC Glucose 123 H 148 H Uric Acid Calcium 8.2 L Phosphorus Magnesium AST 45 H ALT Total Creatine Kinase CK-MB (CK-2) Troponin T NT-Pro-B Natriuret Pep Total Protein 6.0 L Albumin 1.9 L Triglycerides HDL Cholesterol Urine WBC (Auto) Urine Creatinine Urine Total Protein Vancomycin Trough 05/09/19 05/09/19 05/10/19 18:23 23:26 04:52 WBC RBC Hgb Hct MCV MCH MCHC RDW Lymph % (Auto) [place] % (Auto) Lymph # [place] # Seg Neutrophils % Seg Neutrophils # PT INR APTT POC ABG pH 7.305 L ABG pH POC ABG pCO2 62.6 H POC ABG pO2 ABG pO2 ABG HCO3 ABG O2 Saturation ABG Base Excess ABG Hemoglobin Oxyhemoglobin Sodium Potassium Chloride Carbon Dioxide BUN Creatinine Glucose POC Glucose 147 H 121 H Uric Acid Calcium Phosphorus Magnesium AST ALT Total Creatine Kinase CK-MB (CK-2) Troponin T NT-Pro-B Natriuret Pep Total Protein Albumin Triglycerides HDL Cholesterol Urine WBC (Auto) Urine Creatinine Urine Total Protein Vancomycin Trough 05/10/19 05/10/19 05/10/19 05:00 05:00 05:50 WBC RBC Hgb 10.3 L Hct 33.7 L MCV MCH 27 L MCHC 31 L RDW 17.0 H Lymph % (Auto) [place] % (Auto) Lymph # [place] # Seg Neutrophils % Seg Neutrophils # PT INR APTT POC ABG pH ABG pH POC ABG pCO2 POC ABG pO2 ABG pO2 ABG HCO3 ABG O2 Saturation ABG Base Excess ABG Hemoglobin Oxyhemoglobin Sodium 147 H Potassium Chloride Carbon Dioxide BUN 70 H Creatinine 2.6 H Glucose 155 H POC Glucose 158 H Uric Acid Calcium 8.2 L Phosphorus Magnesium AST ALT Total Creatine Kinase CK-MB (CK-2) Troponin T NT-Pro-B Natriuret Pep Total Protein 6.1 L Albumin 2.5 L Triglycerides HDL Cholesterol Urine WBC (Auto) Urine Creatinine Urine Total Protein Vancomycin Trough 05/10/19 05/11/19 05/11/19 13:14 07:26 11:40 WBC RBC Hgb Hct MCV MCH MCHC RDW Lymph % (Auto) [place] % (Auto) Lymph # [place] # Seg Neutrophils % Seg Neutrophils # PT INR APTT POC ABG pH ABG pH POC ABG pCO2 48.0 H POC ABG pO2 58 L ABG pO2 ABG HCO3 ABG O2 Saturation ABG Base Excess ABG Hemoglobin Oxyhemoglobin Sodium 147 H Potassium Chloride 107.2 H Carbon Dioxide BUN 67 H Creatinine 2.6 H Glucose 121 H POC Glucose 159 H Uric Acid Calcium Phosphorus Magnesium AST ALT Total Creatine Kinase CK-MB (CK-2) Troponin T NT-Pro-B Natriuret Pep Total Protein Albumin Triglycerides HDL Cholesterol Urine WBC (Auto) Urine Creatinine Urine Total Protein Vancomycin Trough 12/05/11/19 05/12/19 18:13 23:46 04:40 WBC RBC Hgb Hct MCV MCH MCHC RDW Lymph % (Auto) [place] % (Auto) Lymph # [place] # Seg Neutrophils % Seg Neutrophils # PT INR APTT POC ABG pH ABG pH 7.264 L POC ABG pCO2 POC ABG pO2 ABG pO2 66.8 L ABG HCO3 31.0 H ABG O2 Saturation 92.0 L ABG Base Excess ABG Hemoglobin 10.3 L Oxyhemoglobin 90.1 L Sodium Potassium Chloride Carbon Dioxide BUN Creatinine Glucose POC Glucose 120 H 121 H Uric Acid Calcium Phosphorus Magnesium AST ALT Total Creatine Kinase CK-MB (CK-2) Troponin T NT-Pro-B Natriuret Pep Total Protein Albumin Triglycerides HDL Cholesterol Urine WBC (Auto) Urine Creatinine Urine Total Protein Vancomycin Trough 05/12/19 05/12/19 05/12/19 04:45 04:45 11:14 WBC RBC Hgb 10.2 L Hct 32.4 L MCV MCH MCHC 31 L RDW 17.2 H Lymph % (Auto) [place] % (Auto) Lymph # [place] # Seg Neutrophils % Seg Neutrophils # PT INR APTT POC ABG pH 7.284 L ABG pH POC ABG pCO2 67.8 H POC ABG pO2 ABG pO2 ABG HCO3 ABG O2 Saturation ABG Base Excess ABG Hemoglobin Oxyhemoglobin Sodium Potassium Chloride Carbon Dioxide BUN 63 H Creatinine 2.4 H Glucose 110 H POC Glucose Uric Acid Calcium Phosphorus Magnesium AST ALT Total Creatine Kinase CK-MB (CK-2) Troponin T NT-Pro-B Natriuret Pep Total Protein Albumin Triglycerides HDL Cholesterol Urine WBC (Auto) Urine Creatinine Urine Total Protein Vancomycin Trough 05/12/19 05/12/19 05/13/19 11:44 23:11 04:30 WBC RBC Hgb Hct MCV MCH MCHC RDW Lymph % (Auto) [place] % (Auto) Lymph # [place] # Seg Neutrophils % Seg Neutrophils # PT INR APTT POC ABG pH ABG pH 7.288 L POC ABG pCO2 POC ABG pO2 ABG pO2 109.7 H ABG HCO3 30.9 H ABG O2 Saturation ABG Base Excess 3.2 H ABG Hemoglobin 9.6 L Oxyhemoglobin Sodium Potassium Chloride Carbon Dioxide BUN Creatinine Glucose POC Glucose 126 H 147 H Uric Acid Calcium Phosphorus Magnesium AST ALT Total Creatine Kinase CK-MB (CK-2) Troponin T NT-Pro-B Natriuret Pep Total Protein Albumin Triglycerides HDL Cholesterol Urine WBC (Auto) Urine Creatinine Urine Total Protein Vancomycin Trough 05/13/19 05/13/19 05/14/19 06:27 11:58 04:00 WBC RBC 3.16 L Hgb 9.3 L Hct 27.9 L MCV MCH MCHC RDW 17.1 H Lymph % (Auto) [place] % (Auto) Lymph # [place] # Seg Neutrophils % Seg Neutrophils # PT INR APTT POC ABG pH ABG pH POC ABG pCO2 POC ABG pO2 ABG pO2 ABG HCO3 ABG O2 Saturation ABG Base Excess ABG Hemoglobin Oxyhemoglobin Sodium Potassium Chloride Carbon Dioxide BUN Creatinine Glucose POC Glucose 113 H 130 H Uric Acid Calcium Phosphorus Magnesium AST ALT Total Creatine Kinase CK-MB (CK-2) Troponin T NT-Pro-B Natriuret Pep Total Protein Albumin Triglycerides HDL Cholesterol Urine WBC (Auto) Urine Creatinine Urine Total Protein Vancomycin Trough 05/14/19 05/14/19 05/14/19 04:00 04:34 05:32 WBC RBC Hgb Hct MCV MCH MCHC RDW Lymph % (Auto) [place] % (Auto) Lymph # [place] # Seg Neutrophils % Seg Neutrophils # PT INR APTT POC ABG pH 7.328 L ABG pH POC ABG pCO2 61.7 H POC ABG pO2 ABG pO2 ABG HCO3 ABG O2 Saturation ABG Base Excess ABG Hemoglobin Oxyhemoglobin Sodium 135 L D Potassium Chloride Carbon Dioxide BUN 57 H Creatinine 2.2 H Glucose 115 H POC Glucose 115 H Uric Acid Calcium 8.1 L Phosphorus Magnesium AST ALT Total Creatine Kinase CK-MB (CK-2) Troponin T NT-Pro-B Natriuret Pep Total Protein Albumin Triglycerides HDL Cholesterol Urine WBC (Auto) Urine Creatinine Urine Total Protein Vancomycin Trough 05/14/19 05/15/19 05/15/19 12:11 05:10 05:24 WBC RBC Hgb Hct MCV MCH MCHC RDW Lymph % (Auto) [place] % (Auto) Lymph # [place] # Seg Neutrophils % Seg Neutrophils # PT INR APTT POC ABG pH ABG pH 7.342 L POC ABG pCO2 POC ABG pO2 ABG pO2 79.1 L ABG HCO3 28.2 H ABG O2 Saturation ABG Base Excess ABG Hemoglobin 7.0 L Oxyhemoglobin 94.4 L Sodium Potassium Chloride Carbon Dioxide BUN Creatinine Glucose POC Glucose 110 H 116 H Uric Acid Calcium Phosphorus Magnesium AST ALT Total Creatine Kinase CK-MB (CK-2) Troponin T NT-Pro-B Natriuret Pep Total Protein Albumin Triglycerides HDL Cholesterol Urine WBC (Auto) Urine Creatinine Urine Total Protein Vancomycin Trough 05/15/19 09:00 WBC RBC Hgb Hct MCV MCH MCHC RDW Lymph % (Auto) [place] % (Auto) Lymph # [place] # Seg Neutrophils % Seg Neutrophils # PT INR APTT POC ABG pH ABG pH POC ABG pCO2 POC ABG pO2 ABG pO2 ABG HCO3 ABG O2 Saturation ABG Base Excess ABG Hemoglobin Oxyhemoglobin Sodium Potassium Chloride Carbon Dioxide BUN Creatinine Glucose POC Glucose Uric Acid Calcium Phosphorus Magnesium AST ALT Total Creatine Kinase CK-MB (CK-2) Troponin T NT-Pro-B Natriuret Pep Total Protein Albumin Triglycerides HDL Cholesterol Urine WBC (Auto) Urine Creatinine Urine Total Protein Vancomycin Trough 20.5 H
--- NOTE | 2019-05-15 15:45 | Progress Note ---
Assessment and Plan 34-year-old man who is morbidly obese with unknown medical problem was brought to the emergency room with complaints of shortness of breath and difficulty sleeping. History is per the chart, nurse reported that his saturation dropped to 28%, heart rate in the 50s, she checked on them, he was cyanotic. Had a cardiac arrest and was subsequently intubated and recieved 2 rounds of epinephrine. - s/p Cardiac arrest Resuscitated cardiology consulted, following - Metabolic encephalopathy with persistent fever On Rocephin coverage for possible meningitis - Acute hypoxic respiratory failure Status post intubation, continue sedation, Wean us tolerated consulted pulmonary - Acute CHF, new onset, probably diastolic Diurese with IV lasix, monitor I/O, daily weights Cardiology following. Added beta-jenny, no TIM inhibitor secondary to renal insufficiency - Hyperkalemia, Now resolved - Acute kidney injury due to ATN Repeat BMP in am Nephrology following - Fever SIRS vs Sepsis Consult ID On empiric antibiotics -SIRS versus Sepsis Continue Zosyn, Vanco, follow culture - DVT prophylaxis with Lovenox - Morbid obesity Full code status. Subjective Date of service: 05/15/19 Principal diagnosis: HF; acute hypoxemic resp failure, SIRS, CARLA Interval history: Remains intubated. On mechanical ventilation for > 96 hours Objective - Exam Narrative Exam: Constitutional: Obese. Remains intubated connected to mechanical ventilation >96 hours Head: Normocephalic atraumatic Eyes: Pupils are equal round and reactive to light Nose: No enlarged turbinates, no septal deviation. Mouth: Moist mucous membranes. Neck: Supple no thyromegaly. No bruit. No JVD Heart: Regular rate and rhythm, S1-S2 normal. No rubs murmurs or gallop Lungs: Deminished breath sound bilaterally. no rales or rhonchi Abdomen: Soft, nontender. Bowel sound are present. Extremities: No edema, no cyanosis, no clubbing. Neuro: Intubated and unresponsive Skin: No rashes or hyperpigmented spots Musculoskeletal system: No joint pain or swelling Hematological: No petechia or subcutanous hemorrhages. Immunological: No multiple septic spots on the skin Lymphatic: No generalized lymphadenopathy Psychiatry: Intubated and unresponsive - Constitutional Vitals: Vital Signs - 12hr 05/15/19 05/15/19 05/15/19 03:45 04:00 04:15 Temperature Pulse Rate 91 H 91 H 90 Pulse Rate [ 91 H From Monitor] Respiratory 15 24 12 Rate Blood Pressure 126/43 122/52 126/48 O2 Sat by Pulse 94 93 93 Oximetry 05/15/19 05/15/19 05/15/19 04:30 04:31 04:45 Temperature Pulse Rate 90 90 91 H Pulse Rate [ From Monitor] Respiratory 15 14 Rate Blood Pressure 126/50 126/50 119/49 O2 Sat by Pulse 95 95 92 Oximetry 05/15/19 05/15/19 05/15/19 05:00 05:15 05:30 Temperature Pulse Rate 89 90 88 Pulse Rate [ From Monitor] Respiratory 27 H 15 18 Rate Blood Pressure 124/46 124/44 119/47 O2 Sat by Pulse 93 95 94 Oximetry 05/15/19 05/15/19 05/15/19 05:45 06:01 06:15 Temperature Pulse Rate 86 101 H Pulse Rate [ From Monitor] Respiratory 23 19 Rate Blood Pressure 118/46 118/46 157/74 O2 Sat by Pulse 94 92 91 Oximetry 05/15/19 05/15/19 05/15/19 06:26 06:30 06:45 Temperature Pulse Rate 100 H 100 H 106 H Pulse Rate [ From Monitor] Respiratory 13 22 Rate Blood Pressure 157/74 135/59 145/67 O2 Sat by Pulse 93 91 Oximetry 05/15/19 05/15/19 05/15/19 07:00 07:15 07:30 Temperature Pulse Rate 104 H 101 H 100 H Pulse Rate [ From Monitor] Respiratory 18 10 L 17 Rate Blood Pressure 141/66 135/63 143/71 O2 Sat by Pulse 91 92 93 Oximetry 05/15/19 05/15/19 05/15/19 07:45 08:00 08:15 Temperature Pulse Rate 100 H 86 92 H Pulse Rate [ 96 H From Monitor] Respiratory 11 L 21 25 H Rate Blood Pressure 159/71 141/64 143/65 O2 Sat by Pulse 92 95 92 Oximetry 05/15/19 05/15/19 05/15/19 08:30 08:45 09:00 Temperature Pulse Rate 91 H 91 H 90 Pulse Rate [ From Monitor] Respiratory 22 23 24 Rate Blood Pressure 139/65 143/68 141/64 O2 Sat by Pulse 93 93 92 Oximetry 05/15/19 05/15/19 05/15/19 09:15 09:30 09:45 Temperature Pulse Rate 91 H 87 85 Pulse Rate [ From Monitor] Respiratory 21 20 24 Rate Blood Pressure 145/64 137/65 135/56 O2 Sat by Pulse 91 93 93 Oximetry 05/15/19 05/15/19 05/15/19 10:00 10:15 10:30 Temperature Pulse Rate 84 85 87 Pulse Rate [ From Monitor] Respiratory 22 22 22 Rate Blood Pressure 136/57 131/56 133/56 O2 Sat by Pulse 94 94 94 Oximetry 05/15/19 05/15/19 05/15/19 10:45 11:00 11:15 Temperature Pulse Rate 85 85 82 Pulse Rate [ From Monitor] Respiratory 22 23 23 Rate Blood Pressure 134/57 127/54 134/56 O2 Sat by Pulse 94 94 94 Oximetry 05/15/19 05/15/19 05/15/19 11:30 11:45 12:00 Temperature 98.6 F Pulse Rate 82 82 81 Pulse Rate [ 86 From Monitor] Respiratory 22 22 22 Rate Blood Pressure 126/55 126/56 128/52 O2 Sat by Pulse 95 95 95 Oximetry 05/15/19 05/15/19 05/15/19 12:15 12:21 12:30 Temperature Pulse Rate 82 82 82 Pulse Rate [ From Monitor] Respiratory 22 22 Rate Blood Pressure 109/48 109/48 106/47 O2 Sat by Pulse 94 96 95 Oximetry 05/15/19 05/15/19 05/15/19 12:45 13:00 13:15 Temperature Pulse Rate 87 95 H 85 Pulse Rate [ From Monitor] Respiratory 22 18 22 Rate Blood Pressure 116/54 125/68 111/51 O2 Sat by Pulse 95 93 93 Oximetry 05/15/19 05/15/19 05/15/19 13:30 13:45 14:00 Temperature Pulse Rate 82 82 82 Pulse Rate [ From Monitor] Respiratory 22 22 22 Rate Blood Pressure 107/49 108/50 109/53 O2 Sat by Pulse 95 94 94 Oximetry 05/15/19 05/15/19 05/15/19 14:15 14:30 14:45 Temperature Pulse Rate 82 82 80 Pulse Rate [ From Monitor] Respiratory 22 22 22 Rate Blood Pressure 110/50 109/50 106/48 O2 Sat by Pulse 94 93 93 Oximetry 05/15/19 05/15/19 15:00 15:15 Temperature Pulse Rate 79 80 Pulse Rate [ From Monitor] Respiratory 22 22 Rate Blood Pressure 109/48 105/49 O2 Sat by Pulse 94 94 Oximetry - Labs CBC & Chem 7: 05/14/19 04:00 05/14/19 04:00 Labs: Abnormal lab results 05/15/19 05/15/19 05/15/19 Range/Units 05:10 05:24 09:00 ABG pH 7.342 L (7.350-7.450) pH Units ABG pO2 79.1 L (80.0-90.0) mm Hg ABG HCO3 28.2 H (20.0-26.0) mmol/L ABG Hemoglobin 7.0 L (14.0-18.0) gm/dl Oxyhemoglobin 94.4 L (95.0-99.0) % POC Glucose 116 H (70-105) Vancomycin Trough 20.5 H (5.0-20.0) ug/mL
[2019-05-16] MEDS: fentaNYL DRIP Premix 2,000 MCG/100 ML BAG IV SCH ×5 (03:59→21:24)
[2019-05-16 05:54] LABS: ABG Base Excess -3.1 mmol/L (-2.0-3.0); ABG HCO3 24.5 mmol/L (20.0-26.0); ABG Methemoglobin 0.5 % (0.0-1.5); ABG Oxygen Saturation 94.6 % (95.0-99.0); ABG PCO2 57.1 mm Hg; ABG PH 7.25 pH Units (7.350-7.450); ABG PO2 76.4 mm Hg (80.0-90.0)
[2019-05-16 06:11] LABS: Hematocrit 29.1 % (35.5-45.6); Hemoglobin 9.4 gm/dl (11.8-15.2); Mean Corpuscular HGB Conc 32 % (32-34); Mean Corpuscular Volume 87 fl (84-94); Platelet Count 303 K/mm3 (140-440); Red Blood Count 3.36 M/mm3 (3.65-5.03); Red Cell Distribution Width 17.6 % (13.2-15.2)
[2019-05-16 06:25] LABS: Calcium 9.1 mg/dL (8.4-10.2)
[2019-05-16] MEDS: metroNIDAZOLE/NS 500 MG/100 ML 500 MG/100 ML BAG IV SCH ×3 (06:51→22:26)
[2019-05-16] MEDS: FAMOTIDINE 20 MG TAB PO SCH (09:44)
[2019-05-16] MEDS: ENOXAPARIN 30 MG/0.3 ML INJ SUB-Q SCH (09:44)
[2019-05-16] MEDS: levETIRAcetam 500 MG/5 ML ORAL LIQD PO SCH ×2 (09:45→21:12)
[2019-05-16] MEDS: cefTRIAXone/NS 2 GM/100 ML 2 GM/100 ML BAG IV SCH ×2 (09:45→21:12)
[2019-05-16] MEDS ORDERED: VANCOMYCIN 1,500 MG in SODIUM CHLORIDE 0.9% 500 ML 500 ML IV SCH (10:00)
--- NOTE | 2019-05-16 10:00 | Progress Note ---
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 - continue supportive measures, appreciate pulm and ID input - avoid nephrotoxins - diuresis prn per pulm. Would ideally like to avoid over diuresis due to risk to renal tubule recovery - still unable to visualize left kidney on ultrasound; may consider CT abd/pelvis if renal function worsens - no indication for renal replacement therapy - follow vanc levels # Hypernatremia: free water flushes with TF # HTN: BP reasonable, continue current management # Anemia: pRBC transfusion prn # Encephalopathy, seizure disorder, hypoxic respiratory failure, fever: ID and pulm following Subjective Date of service: 05/16/19 Principal diagnosis: HF; acute hypoxemic resp failure, SIRS, CARLA Interval history: resting in bed today Objective - Exam Narrative Exam: General: No acute distress/ intubated and sedated HEENT: ET tube in place Neck: Supple Chest:coarse mechanical breath sounds, PRVC with FiO2 50% Heart: Regular rate and rhythm Abdomen: Soft nontender Extremity: no edema Psych: sedated Derm: No petechial rash - Vital Signs Vital signs: Vital Signs - 12hr 05/15/19 05/15/19 05/15/19 22:00 22:12 22:15 Temperature Pulse Rate 85 88 86 Pulse Rate [ From Monitor] Respiratory 22 22 Rate Blood Pressure 121/60 121/60 115/52 O2 Sat by Pulse 91 95 Oximetry 05/15/19 05/15/19 05/15/19 22:30 22:40 22:45 Temperature 98.4 F Pulse Rate 89 89 Pulse Rate [ From Monitor] Respiratory 20 21 Rate Blood Pressure 125/62 118/61 O2 Sat by Pulse 91 94 Oximetry 05/15/19 05/15/19 05/15/19 23:00 23:15 23:30 Temperature Pulse Rate 87 86 85 Pulse Rate [ From Monitor] Respiratory 22 22 22 Rate Blood Pressure 116/54 117/55 115/56 O2 Sat by Pulse 92 93 92 Oximetry 05/15/19 05/16/19 05/16/19 23:45 00:00 00:15 Temperature Pulse Rate 84 84 84 Pulse Rate [ 83 From Monitor] Respiratory 22 22 22 Rate Blood Pressure 117/58 116/56 120/59 O2 Sat by Pulse 92 99 93 Oximetry 05/16/19 05/16/19 05/16/19 00:16 00:30 00:45 Temperature Pulse Rate 86 87 86 Pulse Rate [ From Monitor] Respiratory 22 22 Rate Blood Pressure 120/59 113/56 118/60 O2 Sat by Pulse 96 92 92 Oximetry 05/16/19 05/16/19 05/16/19 01:00 01:15 01:30 Temperature Pulse Rate 84 82 82 Pulse Rate [ From Monitor] Respiratory 22 22 22 Rate Blood Pressure 114/55 118/60 115/56 O2 Sat by Pulse 93 93 93 Oximetry 05/16/19 05/16/19 05/16/19 01:45 02:00 02:15 Temperature Pulse Rate 83 86 85 Pulse Rate [ From Monitor] Respiratory 22 22 22 Rate Blood Pressure 109/53 114/52 115/52 O2 Sat by Pulse 94 92 92 Oximetry 05/16/19 05/16/19 05/16/19 02:30 02:45 03:00 Temperature Pulse Rate 83 83 83 Pulse Rate [ From Monitor] Respiratory 22 22 21 Rate Blood Pressure 113/54 105/47 110/52 O2 Sat by Pulse 93 93 Oximetry 05/16/19 05/16/19 05/16/19 03:15 03:30 03:32 Temperature 98.8 F Pulse Rate 82 81 Pulse Rate [ From Monitor] Respiratory 22 22 Rate Blood Pressure 108/53 105/50 O2 Sat by Pulse 95 Oximetry 05/16/19 05/16/19 05/16/19 03:45 04:00 04:16 Temperature Pulse Rate 82 82 Pulse Rate [ 94 H From Monitor] Respiratory 22 22 18 Rate Blood Pressure 109/50 110/47 71/39 O2 Sat by Pulse 94 94 Oximetry 05/16/19 05/16/19 05/16/19 04:30 04:45 04:56 Temperature Pulse Rate 93 H 92 H 91 H Pulse Rate [ From Monitor] Respiratory 22 19 Rate Blood Pressure 126/59 134/63 141/68 O2 Sat by Pulse 91 91 95 Oximetry 05/16/19 05/16/19 05/16/19 05:00 05:15 05:30 Temperature Pulse Rate 93 H 91 H 89 Pulse Rate [ From Monitor] Respiratory 21 16 21 Rate Blood Pressure 141/68 130/67 140/69 O2 Sat by Pulse 92 92 Oximetry 05/16/19 05/16/19 05/16/19 05:45 06:00 06:15 Temperature Pulse Rate 92 H 91 H 88 Pulse Rate [ From Monitor] Respiratory 11 L 18 22 Rate Blood Pressure 154/87 140/92 157/77 O2 Sat by Pulse 94 93 90 Oximetry 05/16/19 05/16/19 06:51 08:00 Temperature Pulse Rate 87 81 Pulse Rate [ From Monitor] Respiratory Rate Blood Pressure 144/77 150/78 O2 Sat by Pulse 96 Oximetry - Lab 05/16/19 05:50 05/16/19 05:50 Most recent lab results ABG pH 7.250 pH Units (7.350-7.450) L 05/16/19 04:50 ABG pCO2 57.1 mm Hg 05/16/19 04:50 ABG pO2 76.4 mm Hg (80.0-90.0) L 05/16/19 04:50 ABG HCO3 24.5 mmol/L (20.0-26.0) 05/16/19 04:50 ABG O2 Saturation 94.6 % (95.0-99.0) L 05/16/19 04:50 Calcium 9.1 mg/dL (8.4-10.2) 05/16/19 05:50 Phosphorus 4.90 mg/dL (2.5-4.5) H 05/02/19 00:06 Magnesium 2.30 mg/dL (1.7-2.3) 05/02/19 00:06 Urine Creatinine 292.8 mg/dL (0.1-20.0) H 05/07/19 22:40 Urine Sodium 11 mmol/L 05/07/19 22:40 Urine Total Protein 269 mg/dL (5-11.8) H 05/07/19 22:40 Medications & Allergies - Medications Allergies/Adverse Reactions: Allergies No Known Allergies Allergy (Verified 05/01/19 20:27) Home Medications: Home Medications Medication Instructions Recorded Confirmed Last Taken Type No Known Home Medications [No 05/03/19 05/03/19 Unknown History Reported Home Medications] Active Medications: Generic Name Dose Route Start Last Admin Trade Name Christopher PRN Reason Stop Dose Admin Acetaminophen 650 mg 05/01/19 22:46 12/17/19 19:46 Tylenol PO 650 mg Q4H PRN Administration Pain MILD(1-3)/Fever >100.5/FREEMAN Lipase/Protease/Amylase 1 each 05/14/19 15:01 German Fletcher 10,500 Unit FEEDTUBE PRN PRN For Clogged Feeding Tube Dextrose 50 gm 05/01/19 20:24 D50w (25gm) Vial IV Q30MIN PRN Hypoglycemia Protocol Enoxaparin Sodium 30 mg 05/16/19 10:00 05/16/19 09:44 Enoxaparin SUB-Q 30 mg QDAY VICKEY Administration Famotidine 20 mg 05/16/19 10:00 05/16/19 09:44 Pepcid PO 20 mg DAILY VICKEY Administration Hydralazine HCl 20 mg 05/13/19 08:09 05/14/19 18:09 Apresoline IV 20 mg Q4HR PRN Administration SBP >/=160 Hydrophilic Ointment 1 applic 05/01/19 21:14 Vaseline Lip Therapy TP Q2HR PRN Dry Lips Fentanyl Citrate 2,000 mcg in 100 mls @ 10.195 mls/hr 05/01/19 22:00 05/16/19 08:09 Fentanyl Drip Premix IV 2 mcg/kg/hr TITR VICKEY 20.39 mls/hr Administration Protocol 1 MCG/KG/HR Propofol 1,000 mg in 100 mls @ 7.011 mls/hr 05/03/19 04:00 05/16/19 04:00 Diprivan 10 Mg/Ml IV 15 mcg/kg/min TITR VICKEY 21.033 mls/hr Administration Protocol 5 MCG/KG/MIN Norepinephrine 4 mg in 250 mls @ 7.5 mls/hr 05/03/19 18:00 Levophed Drip 4 Mg/Ns 250 Ml IV TITR VICKEY Protocol 2 MCG/MIN Sodium Chloride 500 mls @ 10 mls/hr 05/06/19 15:00 Nacl 0.9% 500 Ml IV DIRECT VICKEY Ceftriaxone Sodium 2 gm in 100 mls @ 200 mls/hr 05/07/19 22:00 05/16/19 09:45 Rocephin/Ns 2 Gm/100 Ml IV 200 mls/hr Q12HR VICKEY Administration Protocol Metronidazole 500 mg in 100 mls @ 100 mls/hr 05/11/19 14:00 05/16/19 06:51 Flagyl 500 Mg/100 Ml IV 100 mls/hr Q8HR VICKEY Administration Protocol Nicardipine HCl 50 mg/ Sodium 250 mls @ 25 mls/hr 05/13/19 10:00 05/14/19 23:12 Chloride IV 0 mg/hr TITR VICKEY 0 mls/hr Titration Protocol 5 MG/HR Labetalol HCl 100 mg 05/14/19 14:00 05/16/19 06:51 Labetalol PO 100 mg Q8HR VICKEY Administration Levetiracetam 750 mg 05/13/19 10:00 05/16/19 09:45 Keppra PO 750 mg BID VICKEY Administration Lorazepam 2 mg 05/06/19 06:22 05/10/19 16:17 Ativan IV 2 mg Q4H PRN Administration Seizures/AGITATION Multi-Ingred Cream/Lotion/Oil/Oint 1 applic 05/01/19 21:14 Artificial Tears Ophth Oint OU Q4HR PRN Dry Eye(s) Ondansetron HCl 4 mg 05/01/19 22:46 Zofran IV Q8H PRN Nausea And Vomiting Simple Syrup 15 ml 05/14/19 15:01 Simple Syrup FEEDTUBE PRN PRN Hypoglycemia Simple Syrup 30 ml 05/14/19 15:01 Simple Syrup FEEDTUBE PRN PRN Hypoglycemia Sodium Bicarbonate 325 mg 05/14/19 15:01 Sodium Bicarbonate FEEDTUBE PRN PRN For Clogged Feeding Tube Sodium Chloride 10 ml 05/02/19 10:00 05/16/19 09:47 Sodium Chloride Flush Syringe 10 Ml IV 10 ml BID VICKEY Administration Sodium Chloride 10 ml 05/01/19 22:46 05/05/19 02:28 Sodium Chloride Flush Syringe 10 Ml IV 10 ml PRN PRN Administration LINE FLUSH
--- NOTE | 2019-05-16 10:56 | Progress Note ---
Assessment and Plan 34-year-old man who is morbidly obese with unknown medical problem was brought to the emergency room with complaints of shortness of breath and difficulty sleeping. History is per the chart, nurse reported that his saturation dropped to 28%, heart rate in the 50s, she checked on them, he was cyanotic. Had a cardiac arrest and was subsequently intubated and recieved 2 rounds of epinephrine. - s/p Cardiac arrest Resuscitated cardiology consulted, following - Metabolic encephalopathy with persistent fever On Rocephin coverage for possible meningitis - Acute hypoxic respiratory failure Status post intubation, continue sedation, Wean us tolerated Discussed with Home Extension Agent. Thinks pt is weanable - Acute CHF, new onset, probably diastolic Diurese with IV lasix, monitor I/O, daily weights Cardiology following. Added beta-jenny, no TIM inhibitor secondary to renal insufficiency - Acute kidney injury due to ATN Repeat BMP in am Nephrology following - Fever SIRS vs Sepsis Consult ID On empiric antibiotics -SIRS versus Sepsis Continue Zosyn, Vanco, follow culture - DVT prophylaxis with Lovenox - Morbid obesity Full code status. Subjective Date of service: 05/16/19 Principal diagnosis: HF; acute hypoxemic resp failure, SIRS, CARLA Interval history: Remains intubated. On mechanical ventilation for > 96 hours Objective - Exam Narrative Exam: Constitutional: Obese. Remains intubated connected to mechanical ventilation >96 hours Head: Normocephalic atraumatic Eyes: Pupils are equal round and reactive to light Nose: No enlarged turbinates, no septal deviation. Mouth: Moist mucous membranes. Neck: Supple no thyromegaly. No bruit. No JVD Heart: Regular rate and rhythm, S1-S2 normal. No rubs murmurs or gallop Lungs: Deminished breath sound bilaterally. no rales or rhonchi Abdomen: Soft, nontender. Bowel sound are present. Extremities: No edema, no cyanosis, no clubbing. Neuro: Intubated and unresponsive Skin: No rashes or hyperpigmented spots Musculoskeletal system: No joint pain or swelling Hematological: No petechia or subcutanous hemorrhages. Immunological: No multiple septic spots on the skin Lymphatic: No generalized lymphadenopathy Psychiatry: Intubated and unresponsive - Constitutional Vitals: Vital Signs - 12hr 05/15/19 05/15/19 05/15/19 23:00 23:15 23:30 Temperature Pulse Rate 87 86 85 Pulse Rate [ From Monitor] Respiratory 22 22 22 Rate Blood Pressure 116/54 117/55 115/56 O2 Sat by Pulse 92 93 92 Oximetry 05/15/19 05/16/19 05/16/19 23:45 00:00 00:15 Temperature Pulse Rate 84 84 84 Pulse Rate [ 83 From Monitor] Respiratory 22 22 22 Rate Blood Pressure 117/58 116/56 120/59 O2 Sat by Pulse 92 99 93 Oximetry 05/16/19 05/16/19 05/16/19 00:16 00:30 00:45 Temperature Pulse Rate 86 87 86 Pulse Rate [ From Monitor] Respiratory 22 22 Rate Blood Pressure 120/59 113/56 118/60 O2 Sat by Pulse 96 92 92 Oximetry 05/16/19 05/16/19 05/16/19 01:00 01:15 01:30 Temperature Pulse Rate 84 82 82 Pulse Rate [ From Monitor] Respiratory 22 22 22 Rate Blood Pressure 114/55 118/60 115/56 O2 Sat by Pulse 93 93 93 Oximetry 05/16/19 05/16/19 05/16/19 01:45 02:00 02:15 Temperature Pulse Rate 83 86 85 Pulse Rate [ From Monitor] Respiratory 22 22 22 Rate Blood Pressure 109/53 114/52 115/52 O2 Sat by Pulse 94 92 92 Oximetry 05/16/19 05/16/19 05/16/19 02:30 02:45 03:00 Temperature Pulse Rate 83 83 83 Pulse Rate [ From Monitor] Respiratory 22 22 21 Rate Blood Pressure 113/54 105/47 110/52 O2 Sat by Pulse 93 93 Oximetry 05/16/19 05/16/19 05/16/19 03:15 03:30 03:32 Temperature 98.8 F Pulse Rate 82 81 Pulse Rate [ From Monitor] Respiratory 22 22 Rate Blood Pressure 108/53 105/50 O2 Sat by Pulse 95 Oximetry 05/16/19 05/16/19 05/16/19 03:45 04:00 04:16 Temperature Pulse Rate 82 82 Pulse Rate [ 94 H From Monitor] Respiratory 22 22 18 Rate Blood Pressure 109/50 110/47 71/39 O2 Sat by Pulse 94 94 Oximetry 05/16/19 05/16/19 05/16/19 04:30 04:45 04:56 Temperature Pulse Rate 93 H 92 H 91 H Pulse Rate [ From Monitor] Respiratory 22 19 Rate Blood Pressure 126/59 134/63 141/68 O2 Sat by Pulse 91 91 95 Oximetry 05/16/19 05/16/19 05/16/19 05:00 05:15 05:30 Temperature Pulse Rate 93 H 91 H 89 Pulse Rate [ From Monitor] Respiratory 21 16 21 Rate Blood Pressure 141/68 130/67 140/69 O2 Sat by Pulse 92 92 Oximetry 05/16/19 05/16/19 05/16/19 05:45 06:00 06:15 Temperature Pulse Rate 92 H 91 H 88 Pulse Rate [ From Monitor] Respiratory 11 L 18 22 Rate Blood Pressure 154/87 140/92 157/77 O2 Sat by Pulse 94 93 90 Oximetry 05/16/19 05/16/19 06:51 08:00 Temperature 97.9 F Pulse Rate 87 81 Pulse Rate [ From Monitor] Respiratory Rate Blood Pressure 144/77 150/78 O2 Sat by Pulse 96 Oximetry - Labs CBC & Chem 7: 05/16/19 05:50 05/16/19 05:50 Labs: Abnormal lab results 05/15/19 05/16/19 05/16/19 Range/Units 18:12 04:50 05:50 RBC 3.36 L (3.65-5.03) M/mm3 Hgb 9.4 L (11.8-15.2) gm/dl Hct 29.1 L (35.5-45.6) % RDW 17.6 H (13.2-15.2) % ABG pH 7.250 L (7.350-7.450) pH Units ABG pO2 76.4 L (80.0-90.0) mm Hg ABG O2 Saturation 94.6 L (95.0-99.0) % ABG Base Excess -3.1 L (-2.0-3.0) mmol/L ABG Hemoglobin 9.7 L (14.0-18.0) gm/dl Oxyhemoglobin 92.4 L (95.0-99.0) % BUN (9-20) mg/dL Creatinine (0.8-1.5) mg/dL Glucose (75-100) mg/dL POC Glucose 110 H (70-105) 05/16/19 Range/Units 05:50 RBC (3.65-5.03) M/mm3 Hgb (11.8-15.2) gm/dl Hct (35.5-45.6) % RDW (13.2-15.2) % ABG pH (7.350-7.450) pH Units ABG pO2 (80.0-90.0) mm Hg ABG O2 Saturation (95.0-99.0) % ABG Base Excess (-2.0-3.0) mmol/L ABG Hemoglobin (14.0-18.0) gm/dl Oxyhemoglobin (95.0-99.0) % BUN 83 H (9-20) mg/dL Creatinine 4.4 H D (0.8-1.5) mg/dL Glucose 118 H (75-100) mg/dL POC Glucose (70-105)
--- NOTE | 2019-05-16 11:14 | Progress Note ---
Assessment and Plan 34 y/o male with acute hypoxic, hypercapnic respiratory failure currently ventilated and sedated, now with persistent fevers and seizure. 1. Neuro: EEG shows no seizures. 2. Pulm: continue to wean FiO2 for sats >88% and or PaO2 of greater than 55. Do not wean PEEP until FiO2 is at 50% or lower. Permissive hypercapnea is ok as long as pH is not lower than 7.2. 3. Renal: Cr improved to less than 3.0, making urine. Hold diuresis. Stop D5 as patient is tolerating tube feeds 4. Fever: Resolved now with changes in abx as per ID. 5. Day number of 15 of intubation. 6. increase in Cr 4.4 up from 2.2 with decreased urine output. Asked nursing to flush han. Unable to bladder scan appropriately secondary to body habitus. Will also repeat Chemistry. May need fluid challenge. Renal feels secondary to Vanc so stopped. Will check Triglycerides for tomorrow am patient has no funding so aggressive weaning to attempt extubation is goal. Slowly coming down on the PEEP so would not move faster than 2-4mmHG in a 24 hour period. daily sedation vacations. CCT 31 minutes. Subjective Date of service: 05/16/19 Principal diagnosis: HF; acute hypoxemic resp failure, SIRS, CARLA Interval history: No acute events. Down to 40%. Still on PEEP of 18. Sat is 93%. Sedated. No family present. Cr increased to 4.4 from 2.2 on yesterday. Nursing also states that urine output has fallen off. Objective Vital Signs - 12hr 05/15/19 05/15/19 05/15/19 23:15 23:30 23:45 Temperature Pulse Rate 86 85 84 Pulse Rate [ From Monitor] Respiratory 22 Rate Blood Pressure 117/55 115/56 117/58 O2 Sat by Pulse 93 92 92 Oximetry 05/16/19 05/16/19 05/16/19 00:00 00:15 00:16 Temperature Pulse Rate 84 84 86 Pulse Rate [ 83 From Monitor] Respiratory 22 Rate Blood Pressure 116/56 120/59 120/59 O2 Sat by Pulse 99 93 96 Oximetry 05/16/19 05/16/19 05/16/19 00:30 00:45 01:00 Temperature Pulse Rate 87 86 84 Pulse Rate [ From Monitor] Respiratory 22 Rate Blood Pressure 113/56 118/60 114/55 O2 Sat by Pulse 92 92 93 Oximetry 05/16/19 05/16/19 05/16/19 01:15 01:30 01:45 Temperature Pulse Rate 82 82 83 Pulse Rate [ From Monitor] Respiratory 22 Rate Blood Pressure 118/60 115/56 109/53 O2 Sat by Pulse 93 93 94 Oximetry 05/16/19 05/16/19 05/16/19 02:00 02:15 02:30 Temperature Pulse Rate 86 85 83 Pulse Rate [ From Monitor] Respiratory 22 Rate Blood Pressure 114/52 115/52 113/54 O2 Sat by Pulse 92 92 93 Oximetry 05/16/19 05/16/19 05/16/19 02:45 03:00 03:15 Temperature Pulse Rate 83 83 82 Pulse Rate [ From Monitor] Respiratory Rate Blood Pressure 105/47 110/52 108/53 O2 Sat by Pulse 93 Oximetry 05/16/19 05/16/19 05/16/19 03:30 03:32 03:45 Temperature 98.8 F Pulse Rate 81 82 Pulse Rate [ From Monitor] Respiratory Rate Blood Pressure 105/50 109/50 O2 Sat by Pulse 95 94 Oximetry 05/16/19 05/16/19 05/16/19 04:00 04:16 04:30 Temperature Pulse Rate 82 93 H Pulse Rate [ 94 H From Monitor] Respiratory Rate Blood Pressure 110/47 71/39 126/59 O2 Sat by Pulse 94 91 Oximetry 05/16/19 05/16/19 05/16/19 04:45 04:56 05:00 Temperature Pulse Rate 92 H 91 H 93 H Pulse Rate [ From Monitor] Respiratory Rate Blood Pressure 134/63 141/68 141/68 O2 Sat by Pulse 91 95 92 Oximetry 05/16/19 05/16/19 05/16/19 05:15 05:30 05:45 Temperature Pulse Rate 91 H 89 92 H Pulse Rate [ From Monitor] Respiratory 16 21 11 L Rate Blood Pressure 130/67 140/69 154/87 O2 Sat by Pulse 92 94 Oximetry 05/16/19 05/16/19 05/16/19 06:00 06:15 06:51 Temperature Pulse Rate 91 H 88 87 Pulse Rate [ From Monitor] Respiratory 18 22 Rate Blood Pressure 140/92 157/77 144/77 O2 Sat by Pulse 93 90 Oximetry 05/16/19 08:00 Temperature 97.9 F Pulse Rate 81 Pulse Rate [ From Monitor] Respiratory Rate Blood Pressure 150/78 O2 Sat by Pulse 96 Oximetry Constitutional: no acute distress, other (morbidly obese male, sedated on vent) Eyes: non-icteric Neck: other (extremely large in circumference) Effort: normal Ascultation: Bilateral: diminished breath sounds (secondary to body habitus) Cardiovascular: regular rate and rhythm (no mrg) Gastrointestinal: normoactive bowel sounds, other (obese) Integumentary: other (swelling of L hand due to blood pressure cuff and restraints, with non-infected appearing blister on thumb) Extremities: other (1+ generalized edema) Neurologic: unable to assess Psychiatric: other (unable to assess) CBC and BMP: 05/16/19 05:50 05/16/19 05:50 ABG, PT/INR, D-dimer: ABG POC ABG pH 7.328 (7.35-7.45) L 05/14/19 04:34 ABG pH 7.250 pH Units (7.350-7.450) L 05/16/19 04:50 POC ABG pCO2 61.7 (35-45) H 05/14/19 04:34 ABG pCO2 57.1 mm Hg 05/16/19 04:50 POC ABG pO2 99 (80-105) 05/14/19 04:34 ABG pO2 76.4 mm Hg (80.0-90.0) L 05/16/19 04:50 POC ABG HCO3 32.4 (22-26 mml/L) 05/14/19 04:34 POC ABG Total CO2 34 (23-27mmol/L) 05/14/19 04:34 POC ABG O2 Sat 97 05/14/19 04:34 ABG O2 Saturation 94.6 % (95.0-99.0) L 05/16/19 04:50 PT/INR, D-dimer PT 15.4 Sec. (12.2-14.9) H 05/01/19 Unknown INR 1.23 (0.87-1.13) H 05/01/19 Unknown Abnormal lab findings: Abnormal Labs 05/01/19 05/01/19 05/01/19 17:50 19:26 22:36 WBC RBC Hgb Hct MCV MCH MCHC RDW Lymph % (Auto) Bonner % (Auto) Lymph # Bonner # Seg Neutrophils % Seg Neutrophils # PT INR APTT POC ABG pH 7.272 L 7.331 L ABG pH POC ABG pCO2 52.8 H POC ABG pO2 ABG pO2 ABG HCO3 ABG O2 Saturation ABG Base Excess ABG Hemoglobin Oxyhemoglobin Sodium 136 L Potassium 6.5 H* Chloride 97.2 L Carbon Dioxide BUN 60 H Creatinine Glucose 113 H POC Glucose Uric Acid Calcium Phosphorus Magnesium 2.40 H AST 139 H ALT 154 H Total Creatine Kinase CK-MB (CK-2) Troponin T NT-Pro-B Natriuret Pep Total Protein Albumin 3.8 L Triglycerides HDL Cholesterol Urine WBC (Auto) Urine Creatinine Urine Total Protein Vancomycin Trough 05/01/19 05/01/19 05/01/19 Unknown Unknown Unknown WBC 16.1 H RBC Hgb Hct MCV MCH MCHC RDW 17.2 H Lymph % (Auto) Bonner % (Auto) 9.6 H Lymph # Bonner # 1.5 H Seg Neutrophils % 73.0 H Seg Neutrophils # 11.7 H PT 15.4 H INR 1.23 H APTT 22.7 L POC ABG pH ABG pH POC ABG pCO2 POC ABG pO2 ABG pO2 ABG HCO3 ABG O2 Saturation ABG Base Excess ABG Hemoglobin Oxyhemoglobin Sodium Potassium Chloride Carbon Dioxide BUN Creatinine Glucose POC Glucose Uric Acid Calcium Phosphorus Magnesium AST ALT Total Creatine Kinase CK-MB (CK-2) Troponin T NT-Pro-B Natriuret Pep 6831 H Total Protein Albumin Triglycerides HDL Cholesterol Urine WBC (Auto) Urine Creatinine Urine Total Protein Vancomycin Trough 05/01/19 05/02/19 05/02/19 Unknown 00:06 00:06 WBC RBC Hgb Hct MCV MCH MCHC RDW Lymph % (Auto) Bonner % (Auto) Lymph # Bonner # Seg Neutrophils % Seg Neutrophils # PT INR APTT POC ABG pH ABG pH POC ABG pCO2 POC ABG pO2 ABG pO2 ABG HCO3 ABG O2 Saturation ABG Base Excess ABG Hemoglobin Oxyhemoglobin Sodium Potassium Chloride Carbon Dioxide BUN Creatinine Glucose POC Glucose Uric Acid Calcium Phosphorus 4.90 H Magnesium AST ALT Total Creatine Kinase 226 H CK-MB (CK-2) 5.7 H Troponin T 0.044 H NT-Pro-B Natriuret Pep Total Protein Albumin Triglycerides 182 H HDL Cholesterol 18 L Urine WBC (Auto) Urine Creatinine Urine Total Protein Vancomycin Trough 05/02/19 05/02/19 05/02/19 02:08 04:40 04:41 WBC 17.6 H RBC Hgb Hct MCV MCH 27 L MCHC RDW 17.4 H Lymph % (Auto) 10.2 L Bonner % (Auto) 11.0 H Lymph # Bonner # 1.9 H Seg Neutrophils % 78.0 H Seg Neutrophils # 13.8 H PT INR APTT POC ABG pH ABG pH POC ABG pCO2 46.8 H POC ABG pO2 63 L ABG pO2 ABG HCO3 ABG O2 Saturation ABG Base Excess ABG Hemoglobin Oxyhemoglobin Sodium Potassium Chloride 96.3 L Carbon Dioxide BUN 63 H Creatinine 1.7 H Glucose POC Glucose Uric Acid Calcium Phosphorus Magnesium AST ALT Total Creatine Kinase CK-MB (CK-2) Troponin T NT-Pro-B Natriuret Pep Total Protein Albumin Triglycerides HDL Cholesterol Urine WBC (Auto) Urine Creatinine Urine Total Protein Vancomycin Trough 05/02/19 05/02/19 05/02/19 04:41 04:41 16:05 WBC RBC Hgb Hct MCV MCH MCHC RDW Lymph % (Auto) Bonner % (Auto) Lymph # Bonner # Seg Neutrophils % Seg Neutrophils # PT INR APTT POC ABG pH ABG pH POC ABG pCO2 POC ABG pO2 ABG pO2 66.6 L ABG HCO3 31.9 H ABG O2 Saturation 92.5 L ABG Base Excess 5.8 H ABG Hemoglobin 13.3 L Oxyhemoglobin 90.6 L Sodium Potassium Chloride 97.2 L Carbon Dioxide BUN 61 H Creatinine 1.8 H Glucose POC Glucose Uric Acid Calcium Phosphorus Magnesium AST ALT Total Creatine Kinase CK-MB (CK-2) 5.2 H Troponin T 0.067 H D NT-Pro-B Natriuret Pep Total Protein Albumin Triglycerides HDL Cholesterol Urine WBC (Auto) Urine Creatinine Urine Total Protein Vancomycin Trough 05/02/19 05/03/19 05/03/19 20:39 04:35 05:05 WBC 11.8 H RBC Hgb Hct MCV MCH 27 L MCHC 31 L RDW 17.2 H Lymph % (Auto) Bonner % (Auto) Lymph # Bonner # Seg Neutrophils % Seg Neutrophils # PT INR APTT POC ABG pH ABG pH POC ABG pCO2 53.6 H 54.0 H POC ABG pO2 55 L 63 L ABG pO2 ABG HCO3 ABG O2 Saturation ABG Base Excess ABG Hemoglobin Oxyhemoglobin Sodium Potassium Chloride Carbon Dioxide BUN Creatinine Glucose POC Glucose Uric Acid Calcium Phosphorus Magnesium AST ALT Total Creatine Kinase CK-MB (CK-2) Troponin T NT-Pro-B Natriuret Pep Total Protein Albumin Triglycerides HDL Cholesterol Urine WBC (Auto) Urine Creatinine Urine Total Protein Vancomycin Trough 05/03/19 05/03/19 05/03/19 05:05 10:55 16:48 WBC RBC Hgb Hct MCV MCH MCHC RDW Lymph % (Auto) Bonner % (Auto) Lymph # Bonner # Seg Neutrophils % Seg Neutrophils # PT INR APTT POC ABG pH 7.604 H ABG pH POC ABG pCO2 POC ABG pO2 58 L ABG pO2 ABG HCO3 ABG O2 Saturation ABG Base Excess ABG Hemoglobin Oxyhemoglobin Sodium Potassium Chloride Carbon Dioxide BUN 52 H Creatinine 1.9 H Glucose 103 H POC Glucose Uric Acid Calcium Phosphorus Magnesium AST ALT Total Creatine Kinase CK-MB (CK-2) Troponin T NT-Pro-B Natriuret Pep Total Protein Albumin Triglycerides HDL Cholesterol Urine WBC (Auto) 33.0 H Urine Creatinine Urine Total Protein Vancomycin Trough 05/04/19 05/04/19 05/04/19 04:49 06:50 06:50 WBC 16.0 H RBC Hgb Hct MCV MCH 27 L MCHC 31 L RDW 17.8 H Lymph % (Auto) Bonner % (Auto) Lymph # Bonner # Seg Neutrophils % Seg Neutrophils # PT INR APTT POC ABG pH 7.273 L ABG pH POC ABG pCO2 POC ABG pO2 ABG pO2 ABG HCO3 ABG O2 Saturation ABG Base Excess ABG Hemoglobin Oxyhemoglobin Sodium 148 H Potassium 5.5 H Chloride Carbon Dioxide BUN 53 H Creatinine 3.3 H D Glucose 106 H POC Glucose Uric Acid Calcium 8.3 L Phosphorus Magnesium AST ALT Total Creatine Kinase CK-MB (CK-2) Troponin T NT-Pro-B Natriuret Pep Total Protein Albumin Triglycerides HDL Cholesterol Urine WBC (Auto) Urine Creatinine Urine Total Protein Vancomycin Trough 05/05/19 05/05/19 05/05/19 00:05 04:30 05:00 WBC RBC Hgb Hct MCV MCH MCHC RDW Lymph % (Auto) Bonner % (Auto) Lymph # Bonner # Seg Neutrophils % Seg Neutrophils # PT INR APTT POC ABG pH 7.225 L ABG pH POC ABG pCO2 > 70 H POC ABG pO2 ABG pO2 ABG HCO3 ABG O2 Saturation ABG Base Excess ABG Hemoglobin Oxyhemoglobin Sodium 151 H Potassium 5.1 H Chloride Carbon Dioxide BUN 64 H Creatinine 3.5 H Glucose 117 H POC Glucose 141 H Uric Acid Calcium 7.5 L Phosphorus Magnesium AST 93 H ALT 65 H Total Creatine Kinase CK-MB (CK-2) Troponin T NT-Pro-B Natriuret Pep Total Protein Albumin 2.9 L Triglycerides HDL Cholesterol Urine WBC (Auto) Urine Creatinine Urine Total Protein Vancomycin Trough 05/05/19 05/05/19 05/05/19 05:00 12:02 17:46 WBC 12.0 H RBC Hgb 11.3 L Hct MCV MCH 27 L MCHC 30 L RDW 18.4 H Lymph % (Auto) 7.9 L Bonner % (Auto) 10.2 H Lymph # 1.0 L Bonner # 1.2 H Seg Neutrophils % 80.8 H Seg Neutrophils # 9.7 H PT INR APTT POC ABG pH ABG pH POC ABG pCO2 POC ABG pO2 ABG pO2 ABG HCO3 ABG O2 Saturation ABG Base Excess ABG Hemoglobin Oxyhemoglobin Sodium Potassium Chloride Carbon Dioxide BUN Creatinine Glucose POC Glucose 125 H 112 H Uric Acid Calcium Phosphorus Magnesium AST ALT Total Creatine Kinase CK-MB (CK-2) Troponin T NT-Pro-B Natriuret Pep Total Protein Albumin Triglycerides HDL Cholesterol Urine WBC (Auto) Urine Creatinine Urine Total Protein Vancomycin Trough 05/05/19 05/06/19 05/06/19 23:42 03:58 04:45 WBC 11.4 H RBC Hgb 10.7 L Hct 34.2 L MCV MCH 27 L MCHC 31 L RDW 16.9 H Lymph % (Auto) Bonner % (Auto) Lymph # Bonner # Seg Neutrophils % Seg Neutrophils # PT INR APTT POC ABG pH ABG pH POC ABG pCO2 62.4 H POC ABG pO2 111 H ABG pO2 ABG HCO3 ABG O2 Saturation ABG Base Excess ABG Hemoglobin Oxyhemoglobin Sodium Potassium Chloride Carbon Dioxide BUN Creatinine Glucose POC Glucose 128 H Uric Acid Calcium Phosphorus Magnesium AST ALT Total Creatine Kinase CK-MB (CK-2) Troponin T NT-Pro-B Natriuret Pep Total Protein Albumin Triglycerides HDL Cholesterol Urine WBC (Auto) Urine Creatinine Urine Total Protein Vancomycin Trough 05/06/19 05/06/19 05/06/19 04:45 05:33 12:30 WBC RBC Hgb Hct MCV MCH MCHC RDW Lymph % (Auto) Bonner % (Auto) Lymph # Bonner # Seg Neutrophils % Seg Neutrophils # PT INR APTT POC ABG pH ABG pH POC ABG pCO2 POC ABG pO2 ABG pO2 ABG HCO3 ABG O2 Saturation ABG Base Excess ABG Hemoglobin Oxyhemoglobin Sodium 149 H Potassium Chloride Carbon Dioxide 31 H BUN 67 H Creatinine 3.2 H Glucose 125 H POC Glucose 117 H 116 H Uric Acid Calcium 7.5 L Phosphorus Magnesium AST ALT Total Creatine Kinase CK-MB (CK-2) Troponin T NT-Pro-B Natriuret Pep Total Protein Albumin Triglycerides HDL Cholesterol Urine WBC (Auto) Urine Creatinine Urine Total Protein Vancomycin Trough 05/06/19 05/06/19 05/07/19 18:34 23:16 05:22 WBC RBC Hgb Hct MCV MCH MCHC RDW Lymph % (Auto) Bonner % (Auto) Lymph # Bonner # Seg Neutrophils % Seg Neutrophils # PT INR APTT POC ABG pH ABG pH POC ABG pCO2 POC ABG pO2 ABG pO2 ABG HCO3 ABG O2 Saturation ABG Base Excess ABG Hemoglobin Oxyhemoglobin Sodium Potassium Chloride Carbon Dioxide BUN Creatinine Glucose POC Glucose 128 H 143 H 166 H Uric Acid Calcium Phosphorus Magnesium AST ALT Total Creatine Kinase CK-MB (CK-2) Troponin T NT-Pro-B Natriuret Pep Total Protein Albumin Triglycerides HDL Cholesterol Urine WBC (Auto) Urine Creatinine Urine Total Protein Vancomycin Trough 05/07/19 05/07/19 05/07/19 06:33 07:03 09:35 WBC RBC Hgb Hct MCV MCH MCHC RDW Lymph % (Auto) Bonner % (Auto) Lymph # Bonner # Seg Neutrophils % Seg Neutrophils # PT INR APTT POC ABG pH 7.263 L 7.288 L ABG pH POC ABG pCO2 POC ABG pO2 51 L 56 L ABG pO2 ABG HCO3 ABG O2 Saturation ABG Base Excess ABG Hemoglobin Oxyhemoglobin Sodium Potassium Chloride Carbon Dioxide BUN 76 H Creatinine 3.2 H Glucose 147 H POC Glucose Uric Acid Calcium 7.9 L Phosphorus Magnesium AST ALT Total Creatine Kinase CK-MB (CK-2) Troponin T NT-Pro-B Natriuret Pep Total Protein Albumin Triglycerides HDL Cholesterol Urine WBC (Auto) Urine Creatinine Urine Total Protein Vancomycin Trough 05/07/19 05/07/19 05/07/19 09:35 12:17 13:45 WBC 13.4 H RBC Hgb 11.6 L Hct MCV MCH 27 L MCHC 31 L RDW 17.5 H Lymph % (Auto) Bonner % (Auto) Lymph # Bonner # Seg Neutrophils % Seg Neutrophils # PT INR APTT POC ABG pH ABG pH POC ABG pCO2 POC ABG pO2 ABG pO2 ABG HCO3 ABG O2 Saturation ABG Base Excess ABG Hemoglobin Oxyhemoglobin Sodium Potassium Chloride Carbon Dioxide BUN Creatinine Glucose POC Glucose 130 H Uric Acid 18.0 H Calcium Phosphorus Magnesium AST ALT Total Creatine Kinase CK-MB (CK-2) Troponin T NT-Pro-B Natriuret Pep Total Protein Albumin Triglycerides HDL Cholesterol Urine WBC (Auto) Urine Creatinine Urine Total Protein Vancomycin Trough 05/07/19 05/07/19 05/08/19 17:39 22:40 05:06 WBC RBC Hgb Hct MCV MCH MCHC RDW Lymph % (Auto) Bonner % (Auto) Lymph # Bonner # Seg Neutrophils % Seg Neutrophils # PT INR APTT POC ABG pH ABG pH POC ABG pCO2 POC ABG pO2 ABG pO2 ABG HCO3 ABG O2 Saturation ABG Base Excess ABG Hemoglobin Oxyhemoglobin Sodium Potassium Chloride Carbon Dioxide BUN Creatinine Glucose POC Glucose 116 H 148 H Uric Acid Calcium Phosphorus Magnesium AST ALT Total Creatine Kinase CK-MB (CK-2) Troponin T NT-Pro-B Natriuret Pep Total Protein Albumin Triglycerides HDL Cholesterol Urine WBC (Auto) Urine Creatinine 292.8 H Urine Total Protein 269 H Vancomycin Trough 05/08/19 05/08/19 05/08/19 05:32 11:28 13:48 WBC RBC Hgb Hct MCV MCH MCHC RDW Lymph % (Auto) Bonner % (Auto) Lymph # Bonner # Seg Neutrophils % Seg Neutrophils # PT INR APTT POC ABG pH ABG pH POC ABG pCO2 45.4 H POC ABG pO2 64 L ABG pO2 ABG HCO3 ABG O2 Saturation ABG Base Excess ABG Hemoglobin Oxyhemoglobin Sodium Potassium Chloride Carbon Dioxide BUN 73 H Creatinine 2.7 H Glucose 127 H POC Glucose 107 H Uric Acid Calcium 7.6 L Phosphorus Magnesium AST ALT Total Creatine Kinase CK-MB (CK-2) Troponin T NT-Pro-B Natriuret Pep Total Protein Albumin Triglycerides HDL Cholesterol Urine WBC (Auto) Urine Creatinine Urine Total Protein Vancomycin Trough 05/08/19 05/09/19 05/09/19 17:48 04:50 04:53 WBC RBC 3.07 L Hgb 8.5 L D Hct 29.3 L D MCV 96 H MCH MCHC 29 L RDW 18.1 H Lymph % (Auto) Bonner % (Auto) Lymph # Bonner # Seg Neutrophils % Seg Neutrophils # PT INR APTT POC ABG pH 7.316 L ABG pH POC ABG pCO2 66.0 H POC ABG pO2 69 L ABG pO2 ABG HCO3 ABG O2 Saturation ABG Base Excess ABG Hemoglobin Oxyhemoglobin Sodium Potassium Chloride Carbon Dioxide BUN Creatinine Glucose POC Glucose 155 H Uric Acid Calcium Phosphorus Magnesium AST ALT Total Creatine Kinase CK-MB (CK-2) Troponin T NT-Pro-B Natriuret Pep Total Protein Albumin Triglycerides HDL Cholesterol Urine WBC (Auto) Urine Creatinine Urine Total Protein Vancomycin Trough 05/09/19 05/09/19 05/09/19 05:46 07:24 12:10 WBC RBC Hgb Hct MCV MCH MCHC RDW Lymph % (Auto) Bonner % (Auto) Lymph # Bonner # Seg Neutrophils % Seg Neutrophils # PT INR APTT POC ABG pH ABG pH POC ABG pCO2 POC ABG pO2 ABG pO2 ABG HCO3 ABG O2 Saturation ABG Base Excess ABG Hemoglobin Oxyhemoglobin Sodium Potassium Chloride Carbon Dioxide BUN 73 H Creatinine 2.4 H Glucose 153 H POC Glucose 123 H 148 H Uric Acid Calcium 8.2 L Phosphorus Magnesium AST 45 H ALT Total Creatine Kinase CK-MB (CK-2) Troponin T NT-Pro-B Natriuret Pep Total Protein 6.0 L Albumin 1.9 L Triglycerides HDL Cholesterol Urine WBC (Auto) Urine Creatinine Urine Total Protein Vancomycin Trough 05/09/19 05/09/19 05/10/19 18:23 23:26 04:52 WBC RBC Hgb Hct MCV MCH MCHC RDW Lymph % (Auto) Bonner % (Auto) Lymph # Bonner # Seg Neutrophils % Seg Neutrophils # PT INR APTT POC ABG pH 7.305 L ABG pH POC ABG pCO2 62.6 H POC ABG pO2 ABG pO2 ABG HCO3 ABG O2 Saturation ABG Base Excess ABG Hemoglobin Oxyhemoglobin Sodium Potassium Chloride Carbon Dioxide BUN Creatinine Glucose POC Glucose 147 H 121 H Uric Acid Calcium Phosphorus Magnesium AST ALT Total Creatine Kinase CK-MB (CK-2) Troponin T NT-Pro-B Natriuret Pep Total Protein Albumin Triglycerides HDL Cholesterol Urine WBC (Auto) Urine Creatinine Urine Total Protein Vancomycin Trough 05/10/19 05/10/19 05/10/19 05:00 05:00 05:50 WBC RBC Hgb 10.3 L Hct 33.7 L MCV MCH 27 L MCHC 31 L RDW 17.0 H Lymph % (Auto) Bonner % (Auto) Lymph # Bonner # Seg Neutrophils % Seg Neutrophils # PT INR APTT POC ABG pH ABG pH POC ABG pCO2 POC ABG pO2 ABG pO2 ABG HCO3 ABG O2 Saturation ABG Base Excess ABG Hemoglobin Oxyhemoglobin Sodium 147 H Potassium Chloride Carbon Dioxide BUN 70 H Creatinine 2.6 H Glucose 155 H POC Glucose 158 H Uric Acid Calcium 8.2 L Phosphorus Magnesium AST ALT Total Creatine Kinase CK-MB (CK-2) Troponin T NT-Pro-B Natriuret Pep Total Protein 6.1 L Albumin 2.5 L Triglycerides HDL Cholesterol Urine WBC (Auto) Urine Creatinine Urine Total Protein Vancomycin Trough 05/10/19 05/11/19 05/11/19 13:14 07:26 11:40 WBC RBC Hgb Hct MCV MCH MCHC RDW Lymph % (Auto) Bonner % (Auto) Lymph # Bonner # Seg Neutrophils % Seg Neutrophils # PT INR APTT POC ABG pH ABG pH POC ABG pCO2 48.0 H POC ABG pO2 58 L ABG pO2 ABG HCO3 ABG O2 Saturation ABG Base Excess ABG Hemoglobin Oxyhemoglobin Sodium 147 H Potassium Chloride 107.2 H Carbon Dioxide BUN 67 H Creatinine 2.6 H Glucose 121 H POC Glucose 159 H Uric Acid Calcium Phosphorus Magnesium AST ALT Total Creatine Kinase CK-MB (CK-2) Troponin T NT-Pro-B Natriuret Pep Total Protein Albumin Triglycerides HDL Cholesterol Urine WBC (Auto) Urine Creatinine Urine Total Protein Vancomycin Trough 05/11/19 05/11/19 05/12/19 18:13 23:46 04:40 WBC RBC Hgb Hct MCV MCH MCHC RDW Lymph % (Auto) Bonner % (Auto) Lymph # Bonner # Seg Neutrophils % Seg Neutrophils # PT INR APTT POC ABG pH ABG pH 7.264 L POC ABG pCO2 POC ABG pO2 ABG pO2 66.8 L ABG HCO3 31.0 H ABG O2 Saturation 92.0 L ABG Base Excess ABG Hemoglobin 10.3 L Oxyhemoglobin 90.1 L Sodium Potassium Chloride Carbon Dioxide BUN Creatinine Glucose POC Glucose 120 H 121 H Uric Acid Calcium Phosphorus Magnesium AST ALT Total Creatine Kinase CK-MB (CK-2) Troponin T NT-Pro-B Natriuret Pep Total Protein Albumin Triglycerides HDL Cholesterol Urine WBC (Auto) Urine Creatinine Urine Total Protein Vancomycin Trough 05/12/19 05/12/19 05/12/19 04:45 04:45 11:14 WBC RBC Hgb 10.2 L Hct 32.4 L MCV MCH MCHC 31 L RDW 17.2 H Lymph % (Auto) Bonner % (Auto) Lymph # Bonner # Seg Neutrophils % Seg Neutrophils # PT INR APTT POC ABG pH 7.284 L ABG pH POC ABG pCO2 67.8 H POC ABG pO2 ABG pO2 ABG HCO3 ABG O2 Saturation ABG Base Excess ABG Hemoglobin Oxyhemoglobin Sodium Potassium Chloride Carbon Dioxide BUN 63 H Creatinine 2.4 H Glucose 110 H POC Glucose Uric Acid Calcium Phosphorus Magnesium AST ALT Total Creatine Kinase CK-MB (CK-2) Troponin T NT-Pro-B Natriuret Pep Total Protein Albumin Triglycerides HDL Cholesterol Urine WBC (Auto) Urine Creatinine Urine Total Protein Vancomycin Trough 05/12/19 05/12/19 05/13/19 11:44 23:11 04:30 WBC RBC Hgb Hct MCV MCH MCHC RDW Lymph % (Auto) Bonner % (Auto) Lymph # Bonner # Seg Neutrophils % Seg Neutrophils # PT INR APTT POC ABG pH ABG pH 7.288 L POC ABG pCO2 POC ABG pO2 ABG pO2 109.7 H ABG HCO3 30.9 H ABG O2 Saturation ABG Base Excess 3.2 H ABG Hemoglobin 9.6 L Oxyhemoglobin Sodium Potassium Chloride Carbon Dioxide BUN Creatinine Glucose POC Glucose 126 H 147 H Uric Acid Calcium Phosphorus Magnesium AST ALT Total Creatine Kinase CK-MB (CK-2) Troponin T NT-Pro-B Natriuret Pep Total Protein Albumin Triglycerides HDL Cholesterol Urine WBC (Auto) Urine Creatinine Urine Total Protein Vancomycin Trough 05/13/19 05/13/19 05/14/19 06:27 11:58 04:00 WBC RBC 3.16 L Hgb 9.3 L Hct 27.9 L MCV MCH MCHC RDW 17.1 H Lymph % (Auto) Bonner % (Auto) Lymph # Bonner # Seg Neutrophils % Seg Neutrophils # PT INR APTT POC ABG pH ABG pH POC ABG pCO2 POC ABG pO2 ABG pO2 ABG HCO3 ABG O2 Saturation ABG Base Excess ABG Hemoglobin Oxyhemoglobin Sodium Potassium Chloride Carbon Dioxide BUN Creatinine Glucose POC Glucose 113 H 130 H Uric Acid Calcium Phosphorus Magnesium AST ALT Total Creatine Kinase CK-MB (CK-2) Troponin T NT-Pro-B Natriuret Pep Total Protein Albumin Triglycerides HDL Cholesterol Urine WBC (Auto) Urine Creatinine Urine Total Protein Vancomycin Trough 05/14/19 05/14/19 05/14/19 04:00 04:34 05:32 WBC RBC Hgb Hct MCV MCH MCHC RDW Lymph % (Auto) Bonner % (Auto) Lymph # Bonner # Seg Neutrophils % Seg Neutrophils # PT INR APTT POC ABG pH 7.328 L ABG pH POC ABG pCO2 61.7 H POC ABG pO2 ABG pO2 ABG HCO3 ABG O2 Saturation ABG Base Excess ABG Hemoglobin Oxyhemoglobin Sodium 135 L D Potassium Chloride Carbon Dioxide BUN 57 H Creatinine 2.2 H Glucose 115 H POC Glucose 115 H Uric Acid Calcium 8.1 L Phosphorus Magnesium AST ALT Total Creatine Kinase CK-MB (CK-2) Troponin T NT-Pro-B Natriuret Pep Total Protein Albumin Triglycerides HDL Cholesterol Urine WBC (Auto) Urine Creatinine Urine Total Protein Vancomycin Trough 05/14/19 05/15/19 05/15/19 12:11 05:10 05:24 WBC RBC Hgb Hct MCV MCH MCHC RDW Lymph % (Auto) [place] % (Auto) Lymph # [place] # Seg Neutrophils % Seg Neutrophils # PT INR APTT POC ABG pH ABG pH 7.342 L POC ABG pCO2 POC ABG pO2 ABG pO2 79.1 L ABG HCO3 28.2 H ABG O2 Saturation ABG Base Excess ABG Hemoglobin 7.0 L Oxyhemoglobin 94.4 L Sodium Potassium Chloride Carbon Dioxide BUN Creatinine Glucose POC Glucose 110 H 116 H Uric Acid Calcium Phosphorus Magnesium AST ALT Total Creatine Kinase CK-MB (CK-2) Troponin T NT-Pro-B Natriuret Pep Total Protein Albumin Triglycerides HDL Cholesterol Urine WBC (Auto) Urine Creatinine Urine Total Protein Vancomycin Trough 05/15/19 05/15/19 05/16/19 09:00 18:12 04:50 WBC RBC Hgb Hct MCV MCH MCHC RDW Lymph % (Auto) [place]ner % (Auto) Lymph # [place] # Seg Neutrophils % Seg Neutrophils # PT INR APTT POC ABG pH ABG pH 7.250 L POC ABG pCO2 POC ABG pO2 ABG pO2 76.4 L ABG HCO3 ABG O2 Saturation 94.6 L ABG Base Excess -3.1 L ABG Hemoglobin 9.7 L Oxyhemoglobin 92.4 L Sodium Potassium Chloride Carbon Dioxide BUN Creatinine Glucose POC Glucose 110 H Uric Acid Calcium Phosphorus Magnesium AST ALT Total Creatine Kinase CK-MB (CK-2) Troponin T NT-Pro-B Natriuret Pep Total Protein Albumin Triglycerides HDL Cholesterol Urine WBC (Auto) Urine Creatinine Urine Total Protein Vancomycin Trough 20.5 H 05/16/19 05/16/19 05:50 05:50 WBC RBC 3.36 L Hgb 9.4 L Hct 29.1 L MCV MCH MCHC RDW 17.6 H Lymph % (Auto) Bonner % (Auto) Lymph # Bonner # Seg Neutrophils % Seg Neutrophils # PT INR APTT POC ABG pH ABG pH POC ABG pCO2 POC ABG pO2 ABG pO2 ABG HCO3 ABG O2 Saturation ABG Base Excess ABG Hemoglobin Oxyhemoglobin Sodium Potassium Chloride Carbon Dioxide BUN 83 H Creatinine 4.4 H D Glucose 118 H POC Glucose Uric Acid Calcium Phosphorus Magnesium AST ALT Total Creatine Kinase CK-MB (CK-2) Troponin T NT-Pro-B Natriuret Pep Total Protein Albumin Triglycerides HDL Cholesterol Urine WBC (Auto) Urine Creatinine Urine Total Protein Vancomycin Trough
[2019-05-17] MEDS: fentaNYL DRIP Premix 2,000 MCG/100 ML BAG IV SCH ×6 (00:57→20:42)
[2019-05-17 05:01] LABS: Hematocrit 29.7 % (35.5-45.6); Hemoglobin 9.3 gm/dl (11.8-15.2); Mean Corpuscular HGB Conc 31 % (32-34); Mean Corpuscular Volume 86 fl (84-94); Platelet Count 324 K/mm3 (140-440); Red Blood Count 3.44 M/mm3 (3.65-5.03); Red Cell Distribution Width 17.6 % (13.2-15.2)
[2019-05-17 05:11] LABS: ABG HCO3 23.8 mmol/L (20.0-26.0); ABG Methemoglobin 0.6 % (0.0-1.5); ABG Oxygen Saturation 93.8 % (95.0-99.0); ABG PCO2 52.8 mm Hg; ABG PH 7.272 pH Units (7.350-7.450); ABG PO2 75.7 mm Hg (80.0-90.0)
[2019-05-17 05:13] LABS: Calcium 9.1 mg/dL (8.4-10.2)
[2019-05-17] MEDS: metroNIDAZOLE/NS 500 MG/100 ML 500 MG/100 ML BAG IV SCH ×3 (05:47→21:34)
[2019-05-17 06:44] LABS: Band Neutrophils # (Manual) 0.1 K/mm3; Basophils % (Manual) 0 % (0.0-1.8); Total Cells Counted 100
[2019-05-17 06:45] LABS: Anisocytosis 1+; Large Platelets Few; Platelet Estimate Consistent w Auto
--- NOTE | 2019-05-17 07:49 | Progress Note ---
Assessment and Plan 34-year-old man who is morbidly obese with unknown medical problem was brought to the emergency room with complaints of shortness of breath and difficulty sleeping. History is per the chart, nurse reported that his saturation dropped to 28%, heart rate in the 50s, she checked on them, he was cyanotic. Had a cardiac arrest and was subsequently intubated and recieved 2 rounds of epinephrine. - s/p Cardiac arrest Resuscitated cardiology consulted, following - Metabolic encephalopathy with persistent fever On Rocephin coverage for possible meningitis - Acute hypoxic respiratory failure Status post intubation, continue sedation, Wean us tolerated Discussed with Linux Consultant. Thinks pt is weanable - Acute CHF, new onset, probably diastolic Diurese with IV lasix, monitor I/O, daily weights Cardiology following. Added beta-jenny, no TIM inhibitor secondary to renal insufficiency - Acute kidney injury due to ATN - worsening Avoid nephrotoxic substances REnaly dose curren meds Repeat BMP in am Nephrology following - Hyperkalemia Kayexalate Trend - Fever SIRS vs Sepsis Consult ID On empiric antibiotics -SIRS versus Sepsis Continue Zosyn, Vanco, follow culture - DVT prophylaxis with Lovenox - Morbid obesity Full code status. Subjective Date of service: 05/17/19 Principal diagnosis: HF; acute hypoxemic resp failure, SIRS, CARLA Interval history: Remains intubated. On mechanical ventilation for > 96 hours. Abefrile. No overnight event reported to me. Objective - Exam Narrative Exam: Constitutional: Obese. Remains intubated connected to mechanical ventilation >96 hours Head: Normocephalic atraumatic Eyes: Pupils are equal round and reactive to light Nose: No enlarged turbinates, no septal deviation. Mouth: Moist mucous membranes. Neck: Supple no thyromegaly. No bruit. No JVD Heart: Regular rate and rhythm, S1-S2 normal. No rubs murmurs or gallop Lungs: Deminished breath sound bilaterally. no rales or rhonchi Abdomen: Soft, nontender. Bowel sound are present. Extremities: 2 + edema, no cyanosis, no clubbing. Neuro: Intubated and unresponsive Skin: No rashes or hyperpigmented spots Musculoskeletal system: No joint pain or swelling Hematological: No petechia or subcutanous hemorrhages. Immunological: No multiple septic spots on the skin Lymphatic: No generalized lymphadenopathy Psychiatry: Intubated and unresponsive - Constitutional Vitals: Vital Signs - 12hr 05/16/19 05/16/19 05/16/19 20:00 20:15 20:30 Temperature 98.9 F Pulse Rate 87 91 H 91 H Pulse Rate [ 87 From Monitor] Respiratory 17 11 L 12 Rate Blood Pressure 145/83 146/80 154/84 O2 Sat by Pulse 95 92 91 Oximetry 05/16/19 05/16/19 05/16/19 20:36 20:45 21:00 Temperature Pulse Rate 91 H 90 92 H Pulse Rate [ From Monitor] Respiratory 7 L 14 Rate Blood Pressure 143/80 143/80 161/93 O2 Sat by Pulse 97 94 93 Oximetry 05/16/19 05/16/19 05/16/19 21:12 21:15 21:30 Temperature Pulse Rate 94 H 94 H 91 H Pulse Rate [ From Monitor] Respiratory 16 9 L Rate Blood Pressure 161/93 182/98 151/76 O2 Sat by Pulse 92 Oximetry 05/16/19 05/16/19 05/16/19 21:45 22:00 22:10 Temperature Pulse Rate 89 89 87 Pulse Rate [ From Monitor] Respiratory 10 L 10 L 14 Rate Blood Pressure 144/71 142/79 142/79 O2 Sat by Pulse 92 92 88 Oximetry 05/16/19 05/16/19 05/16/19 22:16 22:17 22:30 Temperature Pulse Rate 87 87 87 Pulse Rate [ From Monitor] Respiratory 12 15 17 Rate Blood Pressure 118/50 118/50 112/47 O2 Sat by Pulse 89 88 87 Oximetry 05/16/19 05/16/19 05/16/19 22:31 22:45 23:00 Temperature Pulse Rate 87 86 84 Pulse Rate [ From Monitor] Respiratory 16 15 16 Rate Blood Pressure 112/47 113/46 116/51 O2 Sat by Pulse 89 87 93 Oximetry 05/16/19 05/16/19 05/16/19 23:15 23:30 23:45 Temperature Pulse Rate 85 85 85 Pulse Rate [ From Monitor] Respiratory 9 L 7 L 10 L Rate Blood Pressure 116/52 107/42 O2 Sat by Pulse 88 89 88 Oximetry 05/17/19 05/17/19 05/17/19 00:00 00:15 00:30 Temperature 99.3 F Pulse Rate 86 85 85 Pulse Rate [ 86 From Monitor] Respiratory 5 L 15 10 L Rate Blood Pressure 109/43 105/32 107/33 O2 Sat by Pulse 89 86 87 Oximetry 05/17/19 05/17/19 05/17/19 00:40 00:45 01:00 Temperature Pulse Rate 83 83 82 Pulse Rate [ From Monitor] Respiratory 6 L 22 Rate Blood Pressure 107/33 102/35 108/33 O2 Sat by Pulse 92 90 88 Oximetry 05/17/19 05/17/19 05/17/19 01:15 01:30 01:45 Temperature Pulse Rate 84 86 85 Pulse Rate [ From Monitor] Respiratory 22 22 20 Rate Blood Pressure 105/37 110/42 112/44 O2 Sat by Pulse 87 88 87 Oximetry 05/17/19 05/17/19 05/17/19 02:00 02:15 02:30 Temperature Pulse Rate 89 90 88 Pulse Rate [ From Monitor] Respiratory 23 24 25 H Rate Blood Pressure 119/42 114/43 109/37 O2 Sat by Pulse 85 86 86 Oximetry 05/17/19 05/17/19 05/17/19 02:45 03:00 03:15 Temperature Pulse Rate 89 89 87 Pulse Rate [ From Monitor] Respiratory 25 H 24 22 Rate Blood Pressure 118/47 110/44 107/41 O2 Sat by Pulse 86 88 86 Oximetry 05/17/19 05/17/19 05/17/19 03:30 03:45 04:00 Temperature 99.8 F H Pulse Rate 86 89 91 H Pulse Rate [ 91 H From Monitor] Respiratory 20 21 19 Rate Blood Pressure 116/42 116/48 119/39 O2 Sat by Pulse 87 87 86 Oximetry 05/17/19 05/17/19 05/17/19 04:15 04:30 04:45 Temperature Pulse Rate 90 93 H 89 Pulse Rate [ From Monitor] Respiratory 24 18 21 Rate Blood Pressure 117/41 127/70 118/42 O2 Sat by Pulse 87 88 88 Oximetry 05/17/19 05/17/19 05/17/19 05:00 05:04 05:15 Temperature Pulse Rate 87 87 85 Pulse Rate [ From Monitor] Respiratory 22 24 Rate Blood Pressure 116/48 118/42 107/46 O2 Sat by Pulse 89 91 90 Oximetry 05/17/19 05/17/19 05/17/19 05:30 05:40 05:45 Temperature Pulse Rate 88 86 86 Pulse Rate [ From Monitor] Respiratory 15 15 Rate Blood Pressure 117/54 117/54 115/47 O2 Sat by Pulse 91 90 Oximetry 05/17/19 05/17/19 05/17/19 06:00 06:15 06:30 Temperature Pulse Rate 89 87 87 Pulse Rate [ From Monitor] Respiratory 18 24 23 Rate Blood Pressure 109/45 112/39 110/37 O2 Sat by Pulse 89 89 90 Oximetry 05/17/19 05/17/19 06:45 07:00 Temperature Pulse Rate 87 87 Pulse Rate [ From Monitor] Respiratory 23 23 Rate Blood Pressure 112/40 111/42 O2 Sat by Pulse 89 90 Oximetry - Labs CBC & Chem 7: 05/17/19 04:20 05/17/19 Unknown Labs: Abnormal lab results 05/17/19 05/17/19 05/17/19 Range/Units 04:20 04:30 Unknown RBC 3.44 L (3.65-5.03) M/mm3 Hgb 9.3 L (11.8-15.2) gm/dl Hct 29.7 L (35.5-45.6) % MCH 27 L (28-32) pg MCHC 31 L (32-34) % RDW 17.6 H (13.2-15.2) % Seg Neuts % (Manual) 77.0 H (40.0-70.0) % Lymphocytes % (Manual) 5.0 L (13.4-35.0) % Eosinophils % (Manual) 10.0 H (0.0-4.3) % Lymphocytes # (Manual) 0.5 L (1.2-5.4) K/mm3 Eosinophils # (Manual) 0.9 H (0.0-0.4) K/mm3 ABG pH 7.272 L (7.350-7.450) pH Units ABG pO2 75.7 L (80.0-90.0) mm Hg ABG O2 Saturation 93.8 L (95.0-99.0) % ABG Base Excess -3.0 L (-2.0-3.0) mmol/L ABG Hemoglobin 7.8 L (14.0-18.0) gm/dl Oxyhemoglobin 91.6 L (95.0-99.0) % Potassium 5.2 H (3.6-5.0) mmol/L BUN 96 H (9-20) mg/dL Creatinine 5.7 H (0.8-1.5) mg/dL Glucose 112 H (75-100) mg/dL Triglycerides 173 H (2-149) mg/dL
[2019-05-17] MEDS: FAMOTIDINE 20 MG TAB PO SCH (10:00)
[2019-05-17] MEDS: cefTRIAXone/NS 2 GM/100 ML 2 GM/100 ML BAG IV SCH ×2 (10:00→21:09)
[2019-05-17] MEDS: levETIRAcetam 500 MG/5 ML ORAL LIQD PO SCH ×2 (10:00→21:10)
[2019-05-17] MEDS: ENOXAPARIN 30 MG/0.3 ML INJ SUB-Q SCH (10:00)
--- NOTE | 2019-05-17 11:00 | Progress Note ---
Assessment and Plan Cultures: Blood cultures 05/11/19: no growth thus far Sputum culture 05/11/19: no growth thus far urine culture: no growth resp culture: no growth A/P: 34-year-old male with obesity admitted with: #Fever, SIRS: Patient was afebrile for the first 2 days of hospitalization, then he developed a fever of 101.2F. ?aspiration related. Apparently was using CPAP. Now febrile again, ?UTI. UA showed pyuria, had indwelling Berkowitz which was removed. Urine culture with no growth. #Acute hypoxic hypercapneic respiratory failure, possibly obesity hypoventil ation syndrome: on the vent. Pulmonary managing. #Morbid obesity #CARLA: creatinine elevated. dose abx accordingly. #Elevated LFTs: RUQ US showed fatty liver, small GB sludge. Improving. #Acute encephalopathy with ?seizure activity: persistent fevers. Agree with possible meningitis coverage Recs: - continue empiric meningitis coverage with Ceftriaxone, Vancomycin - Would complete 2 weeks of therapy, expected stop date 05/21 - continue metronidazole for aspiration concern Nancy Bearden MD [facility] ([facility] M: [phone] O: [phone] F: [phone] Subjective Date of service: 05/17/19 Principal diagnosis: HF; acute hypoxemic resp failure, SIRS, CARLA Interval history: Fevers resolved, normal white count. Objective - Exam Narrative Exam: Constitutional: sedated, intubated. Morbid obesity Head, Ears, Nose: Normocephalic, atraumatic. External ears, nose normal Eyes: Conjunctivae/corneas clear. No icterus. No ptosis. Neck: intubated Oral: intubated Cardiovascular: S1, S2 normal. Respiratory: Good air entry, clear to auscultation bilaterally GI: Soft, non-tender; bowel sounds normal. No peritoneal signs Musculoskeletal: No pedal edema, no cyanosis. Skin: No rash or abscess Hem/Lymphatic: No palpable cervical or supraclavicular nodes. No lymphangitis Psych: no agitation Neurological: sedated, intubated, on vent - Constitutional Vitals: Vital Signs Temp Pulse Resp BP Pulse Ox 100 F H 85 17 106/37 89 05/17/19 08:00 05/17/19 09:15 05/17/19 09:15 05/17/19 09:15 05/17/19 09:15 Temperature -Last 24 Hours Temperature 100 F Temperature 99.8 F Temperature 99.3 F Temperature 98.9 F Temperature 97.9 F Temperature 97.9 F Temperature 98.1 F - Labs CBC & Chem 7: 05/17/19 04:20 05/17/19 Unknown Labs: Abnormal lab results 05/17/19 05/17/19 05/17/19 Range/Units 04:20 04:30 Unknown RBC 3.44 L (3.65-5.03) M/mm3 Hgb 9.3 L (11.8-15.2) gm/dl Hct 29.7 L (35.5-45.6) % MCH 27 L (28-32) pg MCHC 31 L (32-34) % RDW 17.6 H (13.2-15.2) % Seg Neuts % (Manual) 77.0 H (40.0-70.0) % Lymphocytes % (Manual) 5.0 L (13.4-35.0) % Eosinophils % (Manual) 10.0 H (0.0-4.3) % Lymphocytes # (Manual) 0.5 L (1.2-5.4) K/mm3 Eosinophils # (Manual) 0.9 H (0.0-0.4) K/mm3 ABG pH 7.272 L (7.350-7.450) pH Units ABG pO2 75.7 L (80.0-90.0) mm Hg ABG O2 Saturation 93.8 L (95.0-99.0) % ABG Base Excess -3.0 L (-2.0-3.0) mmol/L ABG Hemoglobin 7.8 L (14.0-18.0) gm/dl Oxyhemoglobin 91.6 L (95.0-99.0) % Potassium 5.2 H (3.6-5.0) mmol/L BUN 96 H (9-20) mg/dL Creatinine 5.7 H (0.8-1.5) mg/dL Glucose 112 H (75-100) mg/dL Triglycerides 173 H (2-149) mg/dL
--- NOTE | 2019-05-17 11:54 | Progress Note ---
Assessment and Plan # Acute kidney injury: creatinine has worsened to 5.7, potentially from vancomycin toxicity. Initially with suspected tubular injury in setting of sepsis, respiratory failure, hypotension. S/p diuresis on 05/09. Renal function had been stable at 2.2 until past 48 hours. No other obvious causes of CARLA noted, with stable BPs - check CT abd/pelvis to rule out obstruction (unable to be visualized on prior studies) - continue supportive measures, appreciate pulm and ID input - off vanc for now - avoid nephrotoxins - diuresis prn per pulm; would hold with worsening renal function - no indication for renal replacement therapy acutely today, but given worsening labs and urine output, potential for need in coming 1-2 days. Discussed case with mother via phone, who consented verbally for renal replacement therapy if needed - discussed case with Dr. Bryan and appreciate his assistance. Will follow labs, imaging, and urine output and will advised for potential catheter when needed # Hypernatremia: now resolved off Florinef - continue free water flushes with TF # HTN: BP reasonable, continue current management # Anemia: hemoglobin 9.3, pRBC transfusion prn # Encephalopathy, seizure disorder, hypoxic respiratory failure, fever: ID and pulm following We'll continue to follow and make recommendation from renal standpoint for this critically ill patient; we appreciate the opportunity to assist in his care. Subjective Date of service: 05/17/19 Principal diagnosis: HF; acute hypoxemic resp failure, SIRS, CARLA Interval history: No acute events noted. Remains intubated and sedated. Objective - Exam Narrative Exam: General: No acute distress/ intubated and sedated HEENT: ET tube in place Neck: Supple Chest:coarse mechanical breath sounds, PRVC with FiO2 60% Heart: Regular rate and rhythm Abdomen: Soft nontender Extremity: no edema Psych: sedated Derm: No petechial rash - Vital Signs Vital signs: Vital Signs - 12hr 05/17/19 05/17/19 05/17/19 00:00 00:15 00:30 Temperature 99.3 F Pulse Rate 86 85 85 Pulse Rate [ 86 From Monitor] Respiratory 5 L 15 10 L Rate Blood Pressure 109/43 105/32 107/33 O2 Sat by Pulse 89 86 87 Oximetry 05/17/19 05/17/19 05/17/19 00:40 00:45 01:00 Temperature Pulse Rate 83 83 82 Pulse Rate [ From Monitor] Respiratory 6 L 22 Rate Blood Pressure 107/33 102/35 108/33 O2 Sat by Pulse 92 90 88 Oximetry 05/17/19 05/17/19 05/17/19 01:15 01:30 01:45 Temperature Pulse Rate 84 86 85 Pulse Rate [ From Monitor] Respiratory 22 22 20 Rate Blood Pressure 105/37 110/42 112/44 O2 Sat by Pulse 87 88 87 Oximetry 05/17/19 05/17/19 05/17/19 02:00 02:15 02:30 Temperature Pulse Rate 89 90 88 Pulse Rate [ From Monitor] Respiratory 23 24 25 H Rate Blood Pressure 119/42 114/43 109/37 O2 Sat by Pulse 85 86 86 Oximetry 05/17/19 05/17/19 05/17/19 02:45 03:00 03:15 Temperature Pulse Rate 89 89 87 Pulse Rate [ From Monitor] Respiratory 25 H 24 22 Rate Blood Pressure 118/47 110/44 107/41 O2 Sat by Pulse 86 88 86 Oximetry 05/17/19 05/17/19 05/17/19 03:30 03:45 04:00 Temperature 99.8 F H Pulse Rate 86 89 91 H Pulse Rate [ 91 H From Monitor] Respiratory 20 21 19 Rate Blood Pressure 116/42 116/48 119/39 O2 Sat by Pulse 87 87 86 Oximetry 05/17/19 05/17/19 05/17/19 04:15 04:30 04:45 Temperature Pulse Rate 90 93 H 89 Pulse Rate [ From Monitor] Respiratory 24 18 21 Rate Blood Pressure 117/41 127/70 118/42 O2 Sat by Pulse 87 88 88 Oximetry 05/17/19 05/17/19 05/17/19 05:00 05:04 05:15 Temperature Pulse Rate 87 87 85 Pulse Rate [ From Monitor] Respiratory 22 24 Rate Blood Pressure 116/48 118/42 107/46 O2 Sat by Pulse 89 91 90 Oximetry 05/17/19 05/17/19 05/17/19 05:30 05:40 05:45 Temperature Pulse Rate 88 86 86 Pulse Rate [ From Monitor] Respiratory 15 15 Rate Blood Pressure 117/54 117/54 115/47 O2 Sat by Pulse 91 90 Oximetry 05/17/19 05/17/19 05/17/19 06:00 06:15 06:30 Temperature Pulse Rate 89 87 87 Pulse Rate [ From Monitor] Respiratory 18 24 23 Rate Blood Pressure 109/45 112/39 110/37 O2 Sat by Pulse 89 89 90 Oximetry 05/17/19 05/17/19 05/17/19 06:45 07:00 07:15 Temperature Pulse Rate 87 87 85 Pulse Rate [ From Monitor] Respiratory 23 23 22 Rate Blood Pressure 112/40 111/42 110/41 O2 Sat by Pulse 89 90 89 Oximetry 05/17/19 05/17/19 05/17/19 07:30 07:45 08:00 Temperature 100 F H Pulse Rate 85 85 86 Pulse Rate [ 96 H From Monitor] Respiratory 20 20 18 Rate Blood Pressure 110/38 108/40 120/48 O2 Sat by Pulse 90 90 91 Oximetry 05/17/19 05/17/19 05/17/19 08:03 08:15 08:30 Temperature Pulse Rate 87 87 86 Pulse Rate [ From Monitor] Respiratory 18 18 Rate Blood Pressure 120/48 112/42 113/33 O2 Sat by Pulse 91 89 89 Oximetry 05/17/19 05/17/19 05/17/19 08:45 09:00 09:15 Temperature Pulse Rate 84 87 85 Pulse Rate [ From Monitor] Respiratory 21 22 17 Rate Blood Pressure 109/36 113/46 106/37 O2 Sat by Pulse 91 89 89 Oximetry 05/17/19 05/17/19 05/17/19 09:30 09:45 10:00 Temperature Pulse Rate 83 84 84 Pulse Rate [ From Monitor] Respiratory 16 20 19 Rate Blood Pressure 103/36 104/33 104/33 O2 Sat by Pulse 90 90 92 Oximetry 05/17/19 05/17/19 05/17/19 10:15 10:30 10:45 Temperature Pulse Rate 83 84 86 Pulse Rate [ From Monitor] Respiratory 22 19 17 Rate Blood Pressure 106/40 104/37 114/43 O2 Sat by Pulse 92 92 90 Oximetry 05/17/19 05/17/19 11:00 11:47 Temperature Pulse Rate 84 85 Pulse Rate [ From Monitor] Respiratory 22 Rate Blood Pressure 112/39 103/36 O2 Sat by Pulse 91 91 Oximetry - Lab 05/17/19 04:20 05/17/19 Unknown Most recent lab results ABG pH 7.272 pH Units (7.350-7.450) L 05/17/19 04:30 ABG pCO2 52.8 mm Hg 05/17/19 04:30 ABG pO2 75.7 mm Hg (80.0-90.0) L 05/17/19 04:30 ABG HCO3 23.8 mmol/L (20.0-26.0) 05/17/19 04:30 ABG O2 Saturation 93.8 % (95.0-99.0) L 05/17/19 04:30 Calcium 9.1 mg/dL (8.4-10.2) 05/17/19 Unknown Phosphorus 4.90 mg/dL (2.5-4.5) H 05/02/19 00:06 Magnesium 2.30 mg/dL (1.7-2.3) 05/02/19 00:06 Urine Creatinine 292.8 mg/dL (0.1-20.0) H 05/07/19 22:40 Urine Sodium 11 mmol/L 05/07/19 22:40 Urine Total Protein 269 mg/dL (5-11.8) H 05/07/19 22:40 Medications & Allergies - Medications Allergies/Adverse Reactions: Allergies No Known Allergies Allergy (Verified 05/01/19 20:27) Home Medications: Home Medications Medication Instructions Recorded Confirmed Last Taken Type No Known Home Medications [No 05/03/19 05/03/19 Unknown History Reported Home Medications] Active Medications: Generic Name Dose Route Start Last Admin Trade Name Freq PRN Reason Stop Dose Admin Acetaminophen 650 mg 05/01/19 22:46 05/11/19 19:46 Tylenol PO 650 mg Q4H PRN Administration Pain MILD(1-3)/Fever >100.5/FREEMAN Lipase/Protease/Amylase 1 each 05/14/19 15:01 Pancremannie Fletcher 10,500 Unit FEEDTUBE PRN PRN For Clogged Feeding Tube Dextrose 50 gm 05/01/19 20:24 D50w (25gm) Vial IV Q30MIN PRN Hypoglycemia Protocol Enoxaparin Sodium 30 mg 05/16/19 10:00 05/17/19 10:00 Enoxaparin SUB-Q 30 mg QDAY VICKEY Administration Famotidine 20 mg 05/16/19 10:00 05/17/19 10:00 Pepcid PO 20 mg DAILY VICKEY Administration Hydralazine HCl 20 mg 05/13/19 08:09 05/14/19 18:09 Apresoline IV 20 mg Q4HR PRN Administration SBP >/=160 Hydrophilic Ointment 1 applic 05/01/19 21:14 Vaseline Lip Therapy TP Q2HR PRN Dry Lips Fentanyl Citrate 2,000 mcg in 100 mls @ 10.195 mls/hr 05/01/19 22:00 05/17/19 08:45 Fentanyl Drip Premix IV 2 mcg/kg/hr TITR VICKEY 20.39 mls/hr Administration Protocol 1 MCG/KG/HR Propofol 1,000 mg in 100 mls @ 7.011 mls/hr 05/03/19 04:00 05/17/19 07:56 Diprivan 10 Mg/Ml IV 15 mcg/kg/min TITR VICKEY 21.033 mls/hr Administration Protocol 5 MCG/KG/MIN Norepinephrine 4 mg in 250 mls @ 7.5 mls/hr 05/03/19 18:00 Levophed Drip 4 Mg/Ns 250 Ml IV TITR VICKEY Protocol 2 MCG/MIN Sodium Chloride 500 mls @ 10 mls/hr 05/06/19 15:00 Nacl 0.9% 500 Ml IV DIRECT VICKEY Ceftriaxone Sodium 2 gm in 100 mls @ 200 mls/hr 05/07/19 22:00 05/17/19 10:00 Rocephin/Ns 2 Gm/100 Ml IV 05/21/19 23:59 200 mls/hr Q12HR VICKEY Administration Protocol Metronidazole 500 mg in 100 mls @ 100 mls/hr 05/11/19 14:00 05/17/19 05:47 Flagyl 500 Mg/100 Ml IV 05/21/19 13:59 100 mls/hr Q8HR VICKEY Administration Protocol Nicardipine HCl 50 mg/ Sodium 250 mls @ 25 mls/hr 05/13/19 10:00 05/14/19 23:12 Chloride IV 0 mg/hr TITR VICKEY 0 mls/hr Titration Protocol 5 MG/HR Labetalol HCl 100 mg 05/14/19 14:00 05/17/19 05:40 Labetalol PO 100 mg Q8HR VICKEY Administration Levetiracetam 750 mg 05/13/19 10:00 05/17/19 10:00 Keppra PO 750 mg BID VICKEY Administration Lorazepam 2 mg 05/06/19 06:22 05/10/19 16:17 Ativan IV 2 mg Q4H PRN Administration Seizures/AGITATION Multi-Ingred Cream/Lotion/Oil/Oint 1 applic 05/01/19 21:14 Artificial Tears Ophth Oint OU Q4HR PRN Dry Eye(s) Ondansetron HCl 4 mg 05/01/19 22:46 Zofran IV Q8H PRN Nausea And Vomiting Simple Syrup 15 ml 05/14/19 15:01 Simple Syrup FEEDTUBE PRN PRN Hypoglycemia Simple Syrup 30 ml 05/14/19 15:01 Simple Syrup FEEDTUBE PRN PRN Hypoglycemia Sodium Bicarbonate 325 mg 05/14/19 15:01 Sodium Bicarbonate FEEDTUBE PRN PRN For Clogged Feeding Tube Sodium Chloride 10 ml 05/02/19 10:00 05/17/19 10:01 Sodium Chloride Flush Syringe 10 Ml IV 10 ml BID VICKEY Administration Sodium Chloride 10 ml 05/01/19 22:46 05/05/19 02:28 Sodium Chloride Flush Syringe 10 Ml IV 10 ml PRN PRN Administration LINE FLUSH
[2019-05-17] MEDS ORDERED: SODIUM CHLORIDE 0.9% 500 ML 500 ML IV ONE (12:26)
[2019-05-17] MEDS: NORepinephrine/NS 4 MG-250 ML 4 MG/250 ML BAG IV SCH (13:59)
[2019-05-17] MEDS: ACETAMINOPHEN 325 MG TAB PO PRN (16:36)
--- NOTE | 2019-05-18 | Progress Note ---
Assessment and Plan Imp: 1. Acute respiratory failure, hypoxia 2. A/C respiratory failure, hypercapnea 3. LANDON/OHS/Morbid obesity 4. CARLA 5. Pulm HTN 6. Sepsis -> ? Pneumonia, ? Meningitis 7. Seizures Rec: 1. Borderline O2 sats today so cannot wean PEEP or FiO2 further 2. Sedation same 3. May need trach though poor oxygenation currently precludes 4. Holding diuresis; renal following 5. ABX per ID; new fevers and hypotension noted -> repeat blood cultures and UA; wean Levophed to keep MAP > 65 6. CXR in AM 7. Keppra BID 8. TFs as tolerated; DVT and GI PPx 9. Still with poor prognosis; patient w/ marginal improvement since admission 10. Complex decision-making No family present Subjective Date of service: 05/17/19 Principal diagnosis: HF; acute hypoxemic resp failure, SIRS, CARLA Interval history: BP dropped. Received bolus. Now on low-dose Levophed. Sedated on Propofol and Fetanyl. Cannot give history. On PEEP of 16 and FiO2 of 55%. Active Medications Acetaminophen (Tylenol) 650 mg PO Q4H PRN PRN Reason: Pain MILD(1-3)/Fever >100.5/FREEMAN Last Admin: 05/17/19 16:36 Dose: 650 mg Documented by: Lipase/Protease/Amylase (German Fletcher 10,500 Unit) 1 each FEEDTUBE PRN PRN PRN Reason: For Clogged Feeding Tube Dextrose (D50w (25gm) Vial) 50 gm IV Q30MIN PRN; Protocol PRN Reason: Hypoglycemia Enoxaparin Sodium (Enoxaparin) 30 mg SUB-Q QDAY [facility] Last Admin: 05/17/19 10:00 Dose: 30 mg Documented by: Famotidine (Pepcid) 20 mg PO DAILY [facility] Last Admin: 05/17/19 10:00 Dose: 20 mg Documented by: Hydralazine HCl (Apresoline) 20 mg IV Q4HR PRN PRN Reason: SBP >/=160 Last Admin: 05/14/19 18:09 Dose: 20 mg Documented by: Hydrophilic Ointment (Vaseline Lip Therapy) 1 applic TP Q2HR PRN PRN Reason: Dry Lips Fentanyl Citrate (Fentanyl Drip Premix) 2,000 mcg in 100 mls @ 10.195 mls/hr IV TITR [facility]; Protocol Last Admin: 05/17/19 20:42 Dose: 2 mcg/kg/hr, 20.39 mls/hr Documented by: Propofol (Diprivan 10 Mg/Ml) 1,000 mg in 100 mls @ 7.011 mls/hr IV TITR [facility]; Protocol Last Admin: 05/17/19 21:16 Dose: 15 mcg/kg/min, 21.033 mls/hr Documented by: Norepinephrine (Levophed Drip 4 Mg/Ns 250 Ml) 4 mg in 250 mls @ 7.5 mls/hr IV TITR [facility]; Protocol Last Titration: 05/17/19 14:57 Dose: 4 mcg/min, 15 mls/hr Documented by: Sodium Chloride (Nacl 0.9% 500 Ml) 500 mls @ 10 mls/hr IV DIRECT [facility] Ceftriaxone Sodium (Rocephin/Ns 2 Gm/100 Ml) 2 gm in 100 mls @ 200 mls/hr IV Q12HR [facility]; Protocol Stop: 05/21/19 23:59 Last Admin: 05/17/19 21:09 Dose: 200 mls/hr Documented by: Metronidazole (Flagyl 500 Mg/100 Ml) 500 mg in 100 mls @ 100 mls/hr IV Q8HR [facility]; Protocol Stop: 05/21/19 13:59 Last Admin: 05/17/19 21:34 Dose: 100 mls/hr Documented by: Nicardipine HCl 50 mg/ Sodium (Chloride) 250 mls @ 25 mls/hr IV TITR [facility]; Protocol Last Titration: 05/14/19 23:12 Dose: 0 mg/hr, 0 mls/hr Documented by: Labetalol HCl (Labetalol) 100 mg PO Q8HR [facility] Last Admin: 05/17/19 22:05 Dose: Not Given Documented by: Levetiracetam (Keppra) 750 mg PO BID [facility] Last Admin: 05/17/19 21:10 Dose: 750 mg Documented by: Lorazepam (Ativan) 2 mg IV Q4H PRN PRN Reason: Seizures/AGITATION Last Admin: 05/10/19 16:17 Dose: 2 mg Documented by: Multi-Ingred Cream/Lotion/Oil/Oint (Artificial Tears Ophth Oint) 1 applic OU Q4HR PRN PRN Reason: Dry Eye(s) Ondansetron HCl (Zofran) 4 mg IV Q8H PRN PRN Reason: Nausea And Vomiting Simple Syrup (Simple Syrup) 15 ml FEEDTUBE PRN PRN PRN Reason: Hypoglycemia Simple Syrup (Simple Syrup) 30 ml FEEDTUBE PRN PRN PRN Reason: Hypoglycemia Sodium Bicarbonate (Sodium Bicarbonate) 325 mg FEEDTUBE PRN PRN PRN Reason: For Clogged Feeding Tube Sodium Chloride (Sodium Chloride Flush Syringe 10 Ml) 10 ml IV BID [facility] Last Admin: 05/17/19 21:11 Dose: 10 ml Documented by: Sodium Chloride (Sodium Chloride Flush Syringe 10 Ml) 10 ml IV PRN PRN PRN Reason: LINE FLUSH Last Admin: 05/05/19 02:28 Dose: 10 ml Documented by: Objective Vital Signs - 12hr 05/17/19 05/17/19 05/17/19 12:00 12:15 12:30 Temperature 100.3 F H Pulse Rate 83 85 85 Pulse Rate [ 84 From Monitor] Respiratory 18 19 19 Rate Blood Pressure 104/34 96/38 97/39 O2 Sat by Pulse 91 93 90 Oximetry 05/17/19 05/17/19 05/17/19 12:45 13:00 13:15 Temperature Pulse Rate 85 87 89 Pulse Rate [ From Monitor] Respiratory 15 19 14 Rate Blood Pressure 99/40 102/37 108/41 O2 Sat by Pulse 90 90 89 Oximetry 05/17/19 05/17/19 05/17/19 13:30 13:45 14:00 Temperature Pulse Rate 90 90 88 Pulse Rate [ From Monitor] Respiratory 25 H 22 21 Rate Blood Pressure 107/35 98/37 101/34 O2 Sat by Pulse 87 89 90 Oximetry 05/17/19 05/17/19 05/17/19 14:01 14:15 14:30 Temperature Pulse Rate 89 87 87 Pulse Rate [ From Monitor] Respiratory 21 20 Rate Blood Pressure 101/34 99/44 102/42 O2 Sat by Pulse 91 89 Oximetry 05/17/19 05/17/19 05/17/19 14:45 15:00 15:15 Temperature Pulse Rate 87 87 90 Pulse Rate [ From Monitor] Respiratory 18 17 16 Rate Blood Pressure 102/44 107/50 113/54 O2 Sat by Pulse 90 89 87 Oximetry 05/17/19 05/17/19 05/17/19 15:30 15:45 16:00 Temperature 100.7 F H Pulse Rate 94 H 93 H 92 H Pulse Rate [ 84 From Monitor] Respiratory 20 18 19 Rate Blood Pressure 109/44 118/54 113/50 O2 Sat by Pulse 87 85 87 Oximetry 05/17/19 05/17/19 05/17/19 16:15 16:30 16:45 Temperature Pulse Rate 92 H 93 H 93 H Pulse Rate [ From Monitor] Respiratory 22 20 21 Rate Blood Pressure 115/50 112/47 117/49 O2 Sat by Pulse 86 86 87 Oximetry 05/17/19 05/17/19 05/17/19 16:58 17:00 17:15 Temperature Pulse Rate 93 H 92 H 95 H Pulse Rate [ From Monitor] Respiratory 16 22 Rate Blood Pressure 117/49 118/55 110/39 O2 Sat by Pulse 93 92 84 Oximetry 05/17/19 05/17/19 05/17/19 17:30 17:45 18:00 Temperature Pulse Rate 93 H 92 H 101 H Pulse Rate [ From Monitor] Respiratory 20 20 23 Rate Blood Pressure 114/44 123/45 116/49 O2 Sat by Pulse 86 87 89 Oximetry 05/17/19 05/17/19 05/17/19 18:15 18:30 18:45 Temperature Pulse Rate 96 H 95 H 94 H Pulse Rate [ From Monitor] Respiratory 25 H 25 H 23 Rate Blood Pressure 111/45 105/41 109/42 O2 Sat by Pulse 91 89 90 Oximetry 05/17/19 05/17/19 05/17/19 19:00 19:15 19:30 Temperature Pulse Rate 93 H 93 H 93 H Pulse Rate [ From Monitor] Respiratory 25 H 23 21 Rate Blood Pressure 103/42 106/41 112/43 O2 Sat by Pulse 90 90 90 Oximetry 05/17/19 05/17/19 05/17/19 19:33 19:45 20:00 Temperature 100.3 F H Pulse Rate 93 H 96 H 97 H Pulse Rate [ 97 H From Monitor] Respiratory 22 24 Rate Blood Pressure 112/43 111/42 115/53 O2 Sat by Pulse 92 90 92 Oximetry 05/17/19 05/17/19 05/17/19 20:15 20:30 20:45 Temperature Pulse Rate 94 H 89 89 Pulse Rate [ From Monitor] Respiratory 24 25 H 25 H Rate Blood Pressure 113/50 108/47 104/44 O2 Sat by Pulse 89 90 90 Oximetry 05/17/19 05/17/19 05/17/19 21:00 21:15 22:05 Temperature Pulse Rate 87 89 88 Pulse Rate [ From Monitor] Respiratory 26 H 24 Rate Blood Pressure 106/42 108/45 101/43 O2 Sat by Pulse 90 91 Oximetry 05/17/19 05/17/19 23:20 23:21 Temperature 100.5 F H Pulse Rate 94 H Pulse Rate [ From Monitor] Respiratory Rate Blood Pressure 107/34 O2 Sat by Pulse 93 Oximetry Constitutional: other (morbidly obese male, sedated on vent) Eyes: non-icteric ENT: oropharynx moist Neck: other (extremely large in circumference) Effort: normal Ascultation: Bilateral: diminished breath sounds (secondary to body habitus) Cardiovascular: regular rate and rhythm (no mrg) Gastrointestinal: normoactive bowel sounds, non-tender, other (obese) Integumentary: other (L hand is wrapped) Extremities: no cyanosis, pink and warm, other (1+ generalized edema) Neurologic: unable to assess Psychiatric: other (unable to assess) CBC and BMP: 05/17/19 04:20 05/17/19 Unknown ABG, PT/INR, D-dimer: ABG POC ABG pH 7.328 (7.35-7.45) L 05/14/19 04:34 ABG pH 7.272 pH Units (7.350-7.450) L 05/17/19 04:30 POC ABG pCO2 61.7 (35-45) H 05/14/19 04:34 ABG pCO2 52.8 mm Hg 05/17/19 04:30 POC ABG pO2 99 (80-105) 05/14/19 04:34 ABG pO2 75.7 mm Hg (80.0-90.0) L 05/17/19 04:30 POC ABG HCO3 32.4 (22-26 mml/L) 05/14/19 04:34 POC ABG Total CO2 34 (23-27mmol/L) 05/14/19 04:34 POC ABG O2 Sat 97 05/14/19 04:34 ABG O2 Saturation 93.8 % (95.0-99.0) L 05/17/19 04:30 PT/INR, D-dimer PT 15.4 Sec. (12.2-14.9) H 05/01/19 Unknown INR 1.23 (0.87-1.13) H 05/01/19 Unknown Abnormal lab findings: Abnormal Labs 05/01/19 05/01/19 05/01/19 17:50 19:26 22:36 WBC RBC Hgb Hct MCV MCH MCHC RDW Lymph % (Auto) [place] % (Auto) Lymph # [place] # Seg Neutrophils % Seg Neuts % (Manual) Lymphocytes % (Manual) Eosinophils % (Manual) Seg Neutrophils # Lymphocytes # (Manual) Eosinophils # (Manual) PT INR APTT POC ABG pH 7.272 L 7.331 L ABG pH POC ABG pCO2 52.8 H POC ABG pO2 ABG pO2 ABG HCO3 ABG O2 Saturation ABG Base Excess ABG Hemoglobin Oxyhemoglobin Sodium 136 L Potassium 6.5 H* Chloride 97.2 L Carbon Dioxide BUN 60 H Creatinine Glucose 113 H POC Glucose Uric Acid Calcium Phosphorus Magnesium 2.40 H AST 139 H ALT 154 H Total Creatine Kinase CK-MB (CK-2) Troponin T NT-Pro-B Natriuret Pep Total Protein Albumin 3.8 L Triglycerides HDL Cholesterol Urine WBC (Auto) Urine Creatinine Urine Total Protein Vancomycin Trough 05/01/19 05/01/19 05/01/19 Unknown Unknown Unknown WBC 16.1 H RBC Hgb Hct MCV MCH MCHC RDW 17.2 H Lymph % (Auto) [place] % (Auto) 9.6 H Lymph # [place] # 1.5 H Seg Neutrophils % 73.0 H Seg Neuts % (Manual) Lymphocytes % (Manual) Eosinophils % (Manual) Seg Neutrophils # 11.7 H Lymphocytes # (Manual) Eosinophils # (Manual) PT 15.4 H INR 1.23 H APTT 22.7 L POC ABG pH ABG pH POC ABG pCO2 POC ABG pO2 ABG pO2 ABG HCO3 ABG O2 Saturation ABG Base Excess ABG Hemoglobin Oxyhemoglobin Sodium Potassium Chloride Carbon Dioxide BUN Creatinine Glucose POC Glucose Uric Acid Calcium Phosphorus Magnesium AST ALT Total Creatine Kinase CK-MB (CK-2) Troponin T NT-Pro-B Natriuret Pep 6831 H Total Protein Albumin Triglycerides HDL Cholesterol Urine WBC (Auto) Urine Creatinine Urine Total Protein Vancomycin Trough 05/01/19 05/02/19 05/02/19 Unknown 00:06 00:06 WBC RBC Hgb Hct MCV MCH MCHC RDW Lymph % (Auto) [place] % (Auto) Lymph # [place] # Seg Neutrophils % Seg Neuts % (Manual) Lymphocytes % (Manual) Eosinophils % (Manual) Seg Neutrophils # Lymphocytes # (Manual) Eosinophils # (Manual) PT INR APTT POC ABG pH ABG pH POC ABG pCO2 POC ABG pO2 ABG pO2 ABG HCO3 ABG O2 Saturation ABG Base Excess ABG Hemoglobin Oxyhemoglobin Sodium Potassium Chloride Carbon Dioxide BUN Creatinine Glucose POC Glucose Uric Acid Calcium Phosphorus 4.90 H Magnesium AST ALT Total Creatine Kinase 226 H CK-MB (CK-2) 5.7 H Troponin T 0.044 H NT-Pro-B Natriuret Pep Total Protein Albumin Triglycerides 182 H HDL Cholesterol 18 L Urine WBC (Auto) Urine Creatinine Urine Total Protein Vancomycin Trough 05/02/19 05/02/19 05/02/19 02:08 04:40 04:41 WBC 17.6 H RBC Hgb Hct MCV MCH 27 L MCHC RDW 17.4 H Lymph % (Auto) 10.2 L [place] % (Auto) 11.0 H Lymph # [place] # 1.9 H Seg Neutrophils % 78.0 H Seg Neuts % (Manual) Lymphocytes % (Manual) Eosinophils % (Manual) Seg Neutrophils # 13.8 H Lymphocytes # (Manual) Eosinophils # (Manual) PT INR APTT POC ABG pH ABG pH POC ABG pCO2 46.8 H POC ABG pO2 63 L ABG pO2 ABG HCO3 ABG O2 Saturation ABG Base Excess ABG Hemoglobin Oxyhemoglobin Sodium Potassium Chloride 96.3 L Carbon Dioxide BUN 63 H Creatinine 1.7 H Glucose POC Glucose Uric Acid Calcium Phosphorus Magnesium AST ALT Total Creatine Kinase CK-MB (CK-2) Troponin T NT-Pro-B Natriuret Pep Total Protein Albumin Triglycerides HDL Cholesterol Urine WBC (Auto) Urine Creatinine Urine Total Protein Vancomycin Trough 05/02/19 05/02/19 05/02/19 04:41 04:41 16:05 WBC RBC Hgb Hct MCV MCH MCHC RDW Lymph % (Auto) [place] % (Auto) Lymph # [place] # Seg Neutrophils % Seg Neuts % (Manual) Lymphocytes % (Manual) Eosinophils % (Manual) Seg Neutrophils # Lymphocytes # (Manual) Eosinophils # (Manual) PT INR APTT POC ABG pH ABG pH POC ABG pCO2 POC ABG pO2 ABG pO2 66.6 L ABG HCO3 31.9 H ABG O2 Saturation 92.5 L ABG Base Excess 5.8 H ABG Hemoglobin 13.3 L Oxyhemoglobin 90.6 L Sodium Potassium Chloride 97.2 L Carbon Dioxide BUN 61 H Creatinine 1.8 H Glucose POC Glucose Uric Acid Calcium Phosphorus Magnesium AST ALT Total Creatine Kinase CK-MB (CK-2) 5.2 H Troponin T 0.067 H D NT-Pro-B Natriuret Pep Total Protein Albumin Triglycerides HDL Cholesterol Urine WBC (Auto) Urine Creatinine Urine Total Protein Vancomycin Trough 05/02/19 05/03/19 05/03/19 20:39 04:35 05:05 WBC 11.8 H RBC Hgb Hct MCV MCH 27 L MCHC 31 L RDW 17.2 H Lymph % (Auto) [place] % (Auto) Lymph # [place] # Seg Neutrophils % Seg Neuts % (Manual) Lymphocytes % (Manual) Eosinophils % (Manual) Seg Neutrophils # Lymphocytes # (Manual) Eosinophils # (Manual) PT INR APTT POC ABG pH ABG pH POC ABG pCO2 53.6 H 54.0 H POC ABG pO2 55 L 63 L ABG pO2 ABG HCO3 ABG O2 Saturation ABG Base Excess ABG Hemoglobin Oxyhemoglobin Sodium Potassium Chloride Carbon Dioxide BUN Creatinine Glucose POC Glucose Uric Acid Calcium Phosphorus Magnesium AST ALT Total Creatine Kinase CK-MB (CK-2) Troponin T NT-Pro-B Natriuret Pep Total Protein Albumin Triglycerides HDL Cholesterol Urine WBC (Auto) Urine Creatinine Urine Total Protein Vancomycin Trough 05/03/19 05/03/19 05/03/19 05:05 10:55 16:48 WBC RBC Hgb Hct MCV MCH MCHC RDW Lymph % (Auto) [place] % (Auto) Lymph # [place] # Seg Neutrophils % Seg Neuts % (Manual) Lymphocytes % (Manual) Eosinophils % (Manual) Seg Neutrophils # Lymphocytes # (Manual) Eosinophils # (Manual) PT INR APTT POC ABG pH 7.604 H ABG pH POC ABG pCO2 POC ABG pO2 58 L ABG pO2 ABG HCO3 ABG O2 Saturation ABG Base Excess ABG Hemoglobin Oxyhemoglobin Sodium Potassium Chloride Carbon Dioxide BUN 52 H Creatinine 1.9 H Glucose 103 H POC Glucose Uric Acid Calcium Phosphorus Magnesium AST ALT Total Creatine Kinase CK-MB (CK-2) Troponin T NT-Pro-B Natriuret Pep Total Protein Albumin Triglycerides HDL Cholesterol Urine WBC (Auto) 33.0 H Urine Creatinine Urine Total Protein Vancomycin Trough 05/04/19 05/04/19 05/04/19 04:49 06:50 06:50 WBC 16.0 H RBC Hgb Hct MCV MCH 27 L MCHC 31 L RDW 17.8 H Lymph % (Auto) [place] % (Auto) Lymph # [place] # Seg Neutrophils % Seg Neuts % (Manual) Lymphocytes % (Manual) Eosinophils % (Manual) Seg Neutrophils # Lymphocytes # (Manual) Eosinophils # (Manual) PT INR APTT POC ABG pH 7.273 L ABG pH POC ABG pCO2 POC ABG pO2 ABG pO2 ABG HCO3 ABG O2 Saturation ABG Base Excess ABG Hemoglobin Oxyhemoglobin Sodium 148 H Potassium 5.5 H Chloride Carbon Dioxide BUN 53 H Creatinine 3.3 H D Glucose 106 H POC Glucose Uric Acid Calcium 8.3 L Phosphorus Magnesium AST ALT Total Creatine Kinase CK-MB (CK-2) Troponin T NT-Pro-B Natriuret Pep Total Protein Albumin Triglycerides HDL Cholesterol Urine WBC (Auto) Urine Creatinine Urine Total Protein Vancomycin Trough 05/05/19 05/05/19 05/05/19 00:05 04:30 05:00 WBC RBC Hgb Hct MCV MCH MCHC RDW Lymph % (Auto) [place] % (Auto) Lymph # [place] # Seg Neutrophils % Seg Neuts % (Manual) Lymphocytes % (Manual) Eosinophils % (Manual) Seg Neutrophils # Lymphocytes # (Manual) Eosinophils # (Manual) PT INR APTT POC ABG pH 7.225 L ABG pH POC ABG pCO2 > 70 H POC ABG pO2 ABG pO2 ABG HCO3 ABG O2 Saturation ABG Base Excess ABG Hemoglobin Oxyhemoglobin Sodium 151 H Potassium 5.1 H Chloride Carbon Dioxide BUN 64 H Creatinine 3.5 H Glucose 117 H POC Glucose 141 H Uric Acid Calcium 7.5 L Phosphorus Magnesium AST 93 H ALT 65 H Total Creatine Kinase CK-MB (CK-2) Troponin T NT-Pro-B Natriuret Pep Total Protein Albumin 2.9 L Triglycerides HDL Cholesterol Urine WBC (Auto) Urine Creatinine Urine Total Protein Vancomycin Trough 05/05/19 05/05/19 05/05/19 05:00 12:02 17:46 WBC 12.0 H RBC Hgb 11.3 L Hct MCV MCH 27 L MCHC 30 L RDW 18.4 H Lymph % (Auto) 7.9 L [place] % (Auto) 10.2 H Lymph # 1.0 L [place] # 1.2 H Seg Neutrophils % 80.8 H Seg Neuts % (Manual) Lymphocytes % (Manual) Eosinophils % (Manual) Seg Neutrophils # 9.7 H Lymphocytes # (Manual) Eosinophils # (Manual) PT INR APTT POC ABG pH ABG pH POC ABG pCO2 POC ABG pO2 ABG pO2 ABG HCO3 ABG O2 Saturation ABG Base Excess ABG Hemoglobin Oxyhemoglobin Sodium Potassium Chloride Carbon Dioxide BUN Creatinine Glucose POC Glucose 125 H 112 H Uric Acid Calcium Phosphorus Magnesium AST ALT Total Creatine Kinase CK-MB (CK-2) Troponin T NT-Pro-B Natriuret Pep Total Protein Albumin Triglycerides HDL Cholesterol Urine WBC (Auto) Urine Creatinine Urine Total Protein Vancomycin Trough 05/05/19 05/06/19 05/06/19 23:42 03:58 04:45 WBC 11.4 H RBC Hgb 10.7 L Hct 34.2 L MCV MCH 27 L MCHC 31 L RDW 16.9 H Lymph % (Auto) [place] % (Auto) Lymph # [place] # Seg Neutrophils % Seg Neuts % (Manual) Lymphocytes % (Manual) Eosinophils % (Manual) Seg Neutrophils # Lymphocytes # (Manual) Eosinophils # (Manual) PT INR APTT POC ABG pH ABG pH POC ABG pCO2 62.4 H POC ABG pO2 111 H ABG pO2 ABG HCO3 ABG O2 Saturation ABG Base Excess ABG Hemoglobin Oxyhemoglobin Sodium Potassium Chloride Carbon Dioxide BUN Creatinine Glucose POC Glucose 128 H Uric Acid Calcium Phosphorus Magnesium AST ALT Total Creatine Kinase CK-MB (CK-2) Troponin T NT-Pro-B Natriuret Pep Total Protein Albumin Triglycerides HDL Cholesterol Urine WBC (Auto) Urine Creatinine Urine Total Protein Vancomycin Trough 05/06/19 05/06/19 05/06/19 04:45 05:33 12:30 WBC RBC Hgb Hct MCV MCH MCHC RDW Lymph % (Auto) [place] % (Auto) Lymph # [place] # Seg Neutrophils % Seg Neuts % (Manual) Lymphocytes % (Manual) Eosinophils % (Manual) Seg Neutrophils # Lymphocytes # (Manual) Eosinophils # (Manual) PT INR APTT POC ABG pH ABG pH POC ABG pCO2 POC ABG pO2 ABG pO2 ABG HCO3 ABG O2 Saturation ABG Base Excess ABG Hemoglobin Oxyhemoglobin Sodium 149 H Potassium Chloride Carbon Dioxide 31 H BUN 67 H Creatinine 3.2 H Glucose 125 H POC Glucose 117 H 116 H Uric Acid Calcium 7.5 L Phosphorus Magnesium AST ALT Total Creatine Kinase CK-MB (CK-2) Troponin T NT-Pro-B Natriuret Pep Total Protein Albumin Triglycerides HDL Cholesterol Urine WBC (Auto) Urine Creatinine Urine Total Protein Vancomycin Trough 05/06/19 05/06/19 05/07/19 18:34 23:16 05:22 WBC RBC Hgb Hct MCV MCH MCHC RDW Lymph % (Auto) [place] % (Auto) Lymph # [place] # Seg Neutrophils % Seg Neuts % (Manual) Lymphocytes % (Manual) Eosinophils % (Manual) Seg Neutrophils # Lymphocytes # (Manual) Eosinophils # (Manual) PT INR APTT POC ABG pH ABG pH POC ABG pCO2 POC ABG pO2 ABG pO2 ABG HCO3 ABG O2 Saturation ABG Base Excess ABG Hemoglobin Oxyhemoglobin Sodium Potassium Chloride Carbon Dioxide BUN Creatinine Glucose POC Glucose 128 H 143 H 166 H Uric Acid Calcium Phosphorus Magnesium AST ALT Total Creatine Kinase CK-MB (CK-2) Troponin T NT-Pro-B Natriuret Pep Total Protein Albumin Triglycerides HDL Cholesterol Urine WBC (Auto) Urine Creatinine Urine Total Protein Vancomycin Trough 05/07/19 05/07/19 05/07/19 06:33 07:03 09:35 WBC RBC Hgb Hct MCV MCH MCHC RDW Lymph % (Auto) [place] % (Auto) Lymph # [place] # Seg Neutrophils % Seg Neuts % (Manual) Lymphocytes % (Manual) Eosinophils % (Manual) Seg Neutrophils # Lymphocytes # (Manual) Eosinophils # (Manual) PT INR APTT POC ABG pH 7.263 L 7.288 L ABG pH POC ABG pCO2 POC ABG pO2 51 L 56 L ABG pO2 ABG HCO3 ABG O2 Saturation ABG Base Excess ABG Hemoglobin Oxyhemoglobin Sodium Potassium Chloride Carbon Dioxide BUN 76 H Creatinine 3.2 H Glucose 147 H POC Glucose Uric Acid Calcium 7.9 L Phosphorus Magnesium AST ALT Total Creatine Kinase CK-MB (CK-2) Troponin T NT-Pro-B Natriuret Pep Total Protein Albumin Triglycerides HDL Cholesterol Urine WBC (Auto) Urine Creatinine Urine Total Protein Vancomycin Trough 05/07/19 05/07/19 05/07/19 09:35 12:17 13:45 WBC 13.4 H RBC Hgb 11.6 L Hct MCV MCH 27 L MCHC 31 L RDW 17.5 H Lymph % (Auto) [place] % (Auto) Lymph # [place] # Seg Neutrophils % Seg Neuts % (Manual) Lymphocytes % (Manual) Eosinophils % (Manual) Seg Neutrophils # Lymphocytes # (Manual) Eosinophils # (Manual) PT INR APTT POC ABG pH ABG pH POC ABG pCO2 POC ABG pO2 ABG pO2 ABG HCO3 ABG O2 Saturation ABG Base Excess ABG Hemoglobin Oxyhemoglobin Sodium Potassium Chloride Carbon Dioxide BUN Creatinine Glucose POC Glucose 130 H Uric Acid 18.0 H Calcium Phosphorus Magnesium AST ALT Total Creatine Kinase CK-MB (CK-2) Troponin T NT-Pro-B Natriuret Pep Total Protein Albumin Triglycerides HDL Cholesterol Urine WBC (Auto) Urine Creatinine Urine Total Protein Vancomycin Trough 05/07/19 05/07/19 05/08/19 17:39 22:40 05:06 WBC RBC Hgb Hct MCV MCH MCHC RDW Lymph % (Auto) [place] % (Auto) Lymph # [place] # Seg Neutrophils % Seg Neuts % (Manual) Lymphocytes % (Manual) Eosinophils % (Manual) Seg Neutrophils # Lymphocytes # (Manual) Eosinophils # (Manual) PT INR APTT POC ABG pH ABG pH POC ABG pCO2 POC ABG pO2 ABG pO2 ABG HCO3 ABG O2 Saturation ABG Base Excess ABG Hemoglobin Oxyhemoglobin Sodium Potassium Chloride Carbon Dioxide BUN Creatinine Glucose POC Glucose 116 H 148 H Uric Acid Calcium Phosphorus Magnesium AST ALT Total Creatine Kinase CK-MB (CK-2) Troponin T NT-Pro-B Natriuret Pep Total Protein Albumin Triglycerides HDL Cholesterol Urine WBC (Auto) Urine Creatinine 292.8 H Urine Total Protein 269 H Vancomycin Trough 05/08/19 05/08/19 05/08/19 05:32 11:28 13:48 WBC RBC Hgb Hct MCV MCH MCHC RDW Lymph % (Auto) [place] % (Auto) Lymph # [place] # Seg Neutrophils % Seg Neuts % (Manual) Lymphocytes % (Manual) Eosinophils % (Manual) Seg Neutrophils # Lymphocytes # (Manual) Eosinophils # (Manual) PT INR APTT POC ABG pH ABG pH POC ABG pCO2 45.4 H POC ABG pO2 64 L ABG pO2 ABG HCO3 ABG O2 Saturation ABG Base Excess ABG Hemoglobin Oxyhemoglobin Sodium Potassium Chloride Carbon Dioxide BUN 73 H Creatinine 2.7 H Glucose 127 H POC Glucose 107 H Uric Acid Calcium 7.6 L Phosphorus Magnesium AST ALT Total Creatine Kinase CK-MB (CK-2) Troponin T NT-Pro-B Natriuret Pep Total Protein Albumin Triglycerides HDL Cholesterol Urine WBC (Auto) Urine Creatinine Urine Total Protein Vancomycin Trough 05/08/19 05/09/19 05/09/19 17:48 04:50 04:53 WBC RBC 3.07 L Hgb 8.5 L D Hct 29.3 L D MCV 96 H MCH MCHC 29 L RDW 18.1 H Lymph % (Auto) [place] % (Auto) Lymph # [place] # Seg Neutrophils % Seg Neuts % (Manual) Lymphocytes % (Manual) Eosinophils % (Manual) Seg Neutrophils # Lymphocytes # (Manual) Eosinophils # (Manual) PT INR APTT POC ABG pH 7.316 L ABG pH POC ABG pCO2 66.0 H POC ABG pO2 69 L ABG pO2 ABG HCO3 ABG O2 Saturation ABG Base Excess ABG Hemoglobin Oxyhemoglobin Sodium Potassium Chloride Carbon Dioxide BUN Creatinine Glucose POC Glucose 155 H Uric Acid Calcium Phosphorus Magnesium AST ALT Total Creatine Kinase CK-MB (CK-2) Troponin T NT-Pro-B Natriuret Pep Total Protein Albumin Triglycerides HDL Cholesterol Urine WBC (Auto) Urine Creatinine Urine Total Protein Vancomycin Trough 05/09/19 05/09/19 05/09/19 05:46 07:24 12:10 WBC RBC Hgb Hct MCV MCH MCHC RDW Lymph % (Auto) [place] % (Auto) Lymph # [place] # Seg Neutrophils % Seg Neuts % (Manual) Lymphocytes % (Manual) Eosinophils % (Manual) Seg Neutrophils # Lymphocytes # (Manual) Eosinophils # (Manual) PT INR APTT POC ABG pH ABG pH POC ABG pCO2 POC ABG pO2 ABG pO2 ABG HCO3 ABG O2 Saturation ABG Base Excess ABG Hemoglobin Oxyhemoglobin Sodium Potassium Chloride Carbon Dioxide BUN 73 H Creatinine 2.4 H Glucose 153 H POC Glucose 123 H 148 H Uric Acid Calcium 8.2 L Phosphorus Magnesium AST 45 H ALT Total Creatine Kinase CK-MB (CK-2) Troponin T NT-Pro-B Natriuret Pep Total Protein 6.0 L Albumin 1.9 L Triglycerides HDL Cholesterol Urine WBC (Auto) Urine Creatinine Urine Total Protein Vancomycin Trough 05/09/19 05/09/19 05/10/19 18:23 23:26 04:52 WBC RBC Hgb Hct MCV MCH MCHC RDW Lymph % (Auto) [place] % (Auto) Lymph # [place] # Seg Neutrophils % Seg Neuts % (Manual) Lymphocytes % (Manual) Eosinophils % (Manual) Seg Neutrophils # Lymphocytes # (Manual) Eosinophils # (Manual) PT INR APTT POC ABG pH 7.305 L ABG pH POC ABG pCO2 62.6 H POC ABG pO2 ABG pO2 ABG HCO3 ABG O2 Saturation ABG Base Excess ABG Hemoglobin Oxyhemoglobin Sodium Potassium Chloride Carbon Dioxide BUN Creatinine Glucose POC Glucose 147 H 121 H Uric Acid Calcium Phosphorus Magnesium AST ALT Total Creatine Kinase CK-MB (CK-2) Troponin T NT-Pro-B Natriuret Pep Total Protein Albumin Triglycerides HDL Cholesterol Urine WBC (Auto) Urine Creatinine Urine Total Protein Vancomycin Trough 05/10/19 05/10/19 05/10/19 05:00 05:00 05:50 WBC RBC Hgb 10.3 L Hct 33.7 L MCV MCH 27 L MCHC 31 L RDW 17.0 H Lymph % (Auto) [place] % (Auto) Lymph # [place] # Seg Neutrophils % Seg Neuts % (Manual) Lymphocytes % (Manual) Eosinophils % (Manual) Seg Neutrophils # Lymphocytes # (Manual) Eosinophils # (Manual) PT INR APTT POC ABG pH ABG pH POC ABG pCO2 POC ABG pO2 ABG pO2 ABG HCO3 ABG O2 Saturation ABG Base Excess ABG Hemoglobin Oxyhemoglobin Sodium 147 H Potassium Chloride Carbon Dioxide BUN 70 H Creatinine 2.6 H Glucose 155 H POC Glucose 158 H Uric Acid Calcium 8.2 L Phosphorus Magnesium AST ALT Total Creatine Kinase CK-MB (CK-2) Troponin T NT-Pro-B Natriuret Pep Total Protein 6.1 L Albumin 2.5 L Triglycerides HDL Cholesterol Urine WBC (Auto) Urine Creatinine Urine Total Protein Vancomycin Trough 05/10/19 05/11/19 05/11/19 13:14 07:26 11:40 WBC RBC Hgb Hct MCV MCH MCHC RDW Lymph % (Auto) [place] % (Auto) Lymph # [place] # Seg Neutrophils % Seg Neuts % (Manual) Lymphocytes % (Manual) Eosinophils % (Manual) Seg Neutrophils # Lymphocytes # (Manual) Eosinophils # (Manual) PT INR APTT POC ABG pH ABG pH POC ABG pCO2 48.0 H POC ABG pO2 58 L ABG pO2 ABG HCO3 ABG O2 Saturation ABG Base Excess ABG Hemoglobin Oxyhemoglobin Sodium 147 H Potassium Chloride 107.2 H Carbon Dioxide BUN 67 H Creatinine 2.6 H Glucose 121 H POC Glucose 159 H Uric Acid Calcium Phosphorus Magnesium AST ALT Total Creatine Kinase CK-MB (CK-2) Troponin T NT-Pro-B Natriuret Pep Total Protein Albumin Triglycerides HDL Cholesterol Urine WBC (Auto) Urine Creatinine Urine Total Protein Vancomycin Trough 05/11/19 05/11/19 05/12/19 18:13 23:46 04:40 WBC RBC Hgb Hct MCV MCH MCHC RDW Lymph % (Auto) [place] % (Auto) Lymph # [place] # Seg Neutrophils % Seg Neuts % (Manual) Lymphocytes % (Manual) Eosinophils % (Manual) Seg Neutrophils # Lymphocytes # (Manual) Eosinophils # (Manual) PT INR APTT POC ABG pH ABG pH 7.264 L POC ABG pCO2 POC ABG pO2 ABG pO2 66.8 L ABG HCO3 31.0 H ABG O2 Saturation 92.0 L ABG Base Excess ABG Hemoglobin 10.3 L Oxyhemoglobin 90.1 L Sodium Potassium Chloride Carbon Dioxide BUN Creatinine Glucose POC Glucose 120 H 121 H Uric Acid Calcium Phosphorus Magnesium AST ALT Total Creatine Kinase CK-MB (CK-2) Troponin T NT-Pro-B Natriuret Pep Total Protein Albumin Triglycerides HDL Cholesterol Urine WBC (Auto) Urine Creatinine Urine Total Protein Vancomycin Trough 05/12/19 05/12/19 05/12/19 04:45 04:45 11:14 WBC RBC Hgb 10.2 L Hct 32.4 L MCV MCH MCHC 31 L RDW 17.2 H Lymph % (Auto) [place] % (Auto) Lymph # [place] # Seg Neutrophils % Seg Neuts % (Manual) Lymphocytes % (Manual) Eosinophils % (Manual) Seg Neutrophils # Lymphocytes # (Manual) Eosinophils # (Manual) PT INR APTT POC ABG pH 7.284 L ABG pH POC ABG pCO2 67.8 H POC ABG pO2 ABG pO2 ABG HCO3 ABG O2 Saturation ABG Base Excess ABG Hemoglobin Oxyhemoglobin Sodium Potassium Chloride Carbon Dioxide BUN 63 H Creatinine 2.4 H Glucose 110 H POC Glucose Uric Acid Calcium Phosphorus Magnesium AST ALT Total Creatine Kinase CK-MB (CK-2) Troponin T NT-Pro-B Natriuret Pep Total Protein Albumin Triglycerides HDL Cholesterol Urine WBC (Auto) Urine Creatinine Urine Total Protein Vancomycin Trough 05/12/19 05/12/19 05/13/19 11:44 23:11 04:30 WBC RBC Hgb Hct MCV MCH MCHC RDW Lymph % (Auto) [place] % (Auto) Lymph # [place] # Seg Neutrophils % Seg Neuts % (Manual) Lymphocytes % (Manual) Eosinophils % (Manual) Seg Neutrophils # Lymphocytes # (Manual) Eosinophils # (Manual) PT INR APTT POC ABG pH ABG pH 7.288 L POC ABG pCO2 POC ABG pO2 ABG pO2 109.7 H ABG HCO3 30.9 H ABG O2 Saturation ABG Base Excess 3.2 H ABG Hemoglobin 9.6 L Oxyhemoglobin Sodium Potassium Chloride Carbon Dioxide BUN Creatinine Glucose POC Glucose 126 H 147 H Uric Acid Calcium Phosphorus Magnesium AST ALT Total Creatine Kinase CK-MB (CK-2) Troponin T NT-Pro-B Natriuret Pep Total Protein Albumin Triglycerides HDL Cholesterol Urine WBC (Auto) Urine Creatinine Urine Total Protein Vancomycin Trough 05/13/19 05/13/19 05/14/19 06:27 11:58 04:00 WBC RBC 3.16 L Hgb 9.3 L Hct 27.9 L MCV MCH MCHC RDW 17.1 H Lymph % (Auto) [place] % (Auto) Lymph # [place] # Seg Neutrophils % Seg Neuts % (Manual) Lymphocytes % (Manual) Eosinophils % (Manual) Seg Neutrophils # Lymphocytes # (Manual) Eosinophils # (Manual) PT INR APTT POC ABG pH ABG pH POC ABG pCO2 POC ABG pO2 ABG pO2 ABG HCO3 ABG O2 Saturation ABG Base Excess ABG Hemoglobin Oxyhemoglobin Sodium Potassium Chloride Carbon Dioxide BUN Creatinine Glucose POC Glucose 113 H 130 H Uric Acid Calcium Phosphorus Magnesium AST ALT Total Creatine Kinase CK-MB (CK-2) Troponin T NT-Pro-B Natriuret Pep Total Protein Albumin Triglycerides HDL Cholesterol Urine WBC (Auto) Urine Creatinine Urine Total Protein Vancomycin Trough 05/14/19 05/14/19 05/14/19 04:00 04:34 05:32 WBC RBC Hgb Hct MCV MCH MCHC RDW Lymph % (Auto) [place] % (Auto) Lymph # [place] # Seg Neutrophils % Seg Neuts % (Manual) Lymphocytes % (Manual) Eosinophils % (Manual) Seg Neutrophils # Lymphocytes # (Manual) Eosinophils # (Manual) PT INR APTT POC ABG pH 7.328 L ABG pH POC ABG pCO2 61.7 H POC ABG pO2 ABG pO2 ABG HCO3 ABG O2 Saturation ABG Base Excess ABG Hemoglobin Oxyhemoglobin Sodium 135 L D Potassium Chloride Carbon Dioxide BUN 57 H Creatinine 2.2 H Glucose 115 H POC Glucose 115 H Uric Acid Calcium 8.1 L Phosphorus Magnesium AST ALT Total Creatine Kinase CK-MB (CK-2) Troponin T NT-Pro-B Natriuret Pep Total Protein Albumin Triglycerides HDL Cholesterol Urine WBC (Auto) Urine Creatinine Urine Total Protein Vancomycin Trough 05/14/19 05/15/19 05/15/19 12:11 05:10 05:24 WBC RBC Hgb Hct MCV MCH MCHC RDW Lymph % (Auto) [place] % (Auto) Lymph # [place] # Seg Neutrophils % Seg Neuts % (Manual) Lymphocytes % (Manual) Eosinophils % (Manual) Seg Neutrophils # Lymphocytes # (Manual) Eosinophils # (Manual) PT INR APTT POC ABG pH ABG pH 7.342 L POC ABG pCO2 POC ABG pO2 ABG pO2 79.1 L ABG HCO3 28.2 H ABG O2 Saturation ABG Base Excess ABG Hemoglobin 7.0 L Oxyhemoglobin 94.4 L Sodium Potassium Chloride Carbon Dioxide BUN Creatinine Glucose POC Glucose 110 H 116 H Uric Acid Calcium Phosphorus Magnesium AST ALT Total Creatine Kinase CK-MB (CK-2) Troponin T NT-Pro-B Natriuret Pep Total Protein Albumin Triglycerides HDL Cholesterol Urine WBC (Auto) Urine Creatinine Urine Total Protein Vancomycin Trough 05/15/19 05/15/19 05/16/19 09:00 18:12 04:50 WBC RBC Hgb Hct MCV MCH MCHC RDW Lymph % (Auto) [place] % (Auto) Lymph # [place] # Seg Neutrophils % Seg Neuts % (Manual) Lymphocytes % (Manual) Eosinophils % (Manual) Seg Neutrophils # Lymphocytes # (Manual) Eosinophils # (Manual) PT INR APTT POC ABG pH ABG pH 7.250 L POC ABG pCO2 POC ABG pO2 ABG pO2 76.4 L ABG HCO3 ABG O2 Saturation 94.6 L ABG Base Excess -3.1 L ABG Hemoglobin 9.7 L Oxyhemoglobin 92.4 L Sodium Potassium Chloride Carbon Dioxide BUN Creatinine Glucose POC Glucose 110 H Uric Acid Calcium Phosphorus Magnesium AST ALT Total Creatine Kinase CK-MB (CK-2) Troponin T NT-Pro-B Natriuret Pep Total Protein Albumin Triglycerides HDL Cholesterol Urine WBC (Auto) Urine Creatinine Urine Total Protein Vancomycin Trough 20.5 H 05/16/19 05/16/19 05/17/19 05:50 05:50 04:20 WBC RBC 3.36 L 3.44 L Hgb 9.4 L 9.3 L Hct 29.1 L 29.7 L MCV MCH 27 L MCHC 31 L RDW 17.6 H 17.6 H Lymph % (Auto) [place] % (Auto) Lymph # [place] # Seg Neutrophils % Seg Neuts % (Manual) 77.0 H Lymphocytes % (Manual) 5.0 L Eosinophils % (Manual) 10.0 H Seg Neutrophils # Lymphocytes # (Manual) 0.5 L Eosinophils # (Manual) 0.9 H PT INR APTT POC ABG pH ABG pH POC ABG pCO2 POC ABG pO2 ABG pO2 ABG HCO3 ABG O2 Saturation ABG Base Excess ABG Hemoglobin Oxyhemoglobin Sodium Potassium Chloride Carbon Dioxide BUN 83 H Creatinine 4.4 H D Glucose 118 H POC Glucose Uric Acid Calcium Phosphorus Magnesium AST ALT Total Creatine Kinase CK-MB (CK-2) Troponin T NT-Pro-B Natriuret Pep Total Protein Albumin Triglycerides HDL Cholesterol Urine WBC (Auto) Urine Creatinine Urine Total Protein Vancomycin Trough 05/17/19 05/17/19 04:30 Unknown WBC RBC Hgb Hct MCV MCH MCHC RDW Lymph % (Auto) [place] % (Auto) Lymph # [place] # Seg Neutrophils % Seg Neuts % (Manual) Lymphocytes % (Manual) Eosinophils % (Manual) Seg Neutrophils # Lymphocytes # (Manual) Eosinophils # (Manual) PT INR APTT POC ABG pH ABG pH 7.272 L POC ABG pCO2 POC ABG pO2 ABG pO2 75.7 L ABG HCO3 ABG O2 Saturation 93.8 L ABG Base Excess -3.0 L ABG Hemoglobin 7.8 L Oxyhemoglobin 91.6 L Sodium Potassium 5.2 H Chloride Carbon Dioxide BUN 96 H Creatinine 5.7 H Glucose 112 H POC Glucose Uric Acid Calcium Phosphorus Magnesium AST ALT Total Creatine Kinase CK-MB (CK-2) Troponin T NT-Pro-B Natriuret Pep Total Protein Albumin Triglycerides 173 H HDL Cholesterol Urine WBC (Auto) Urine Creatinine Urine Total Protein Vancomycin Trough Chest x-ray: report reviewed, image reviewed
[2019-05-18] MEDS: ACETAMINOPHEN 325 MG TAB PO PRN (00:34)
[2019-05-18] MEDS: fentaNYL DRIP Premix 2,000 MCG/100 ML BAG IV SCH ×6 (00:47→21:32)
[2019-05-18 02:03] LABS: Basophils % (Auto) 0.2 % (0.0-1.8); Eosinophils # (Auto) 0.6 K/mm3 (0.0-0.4); Eosinophils % (Auto) 6.3 % (0.0-4.3); Hemoglobin 9.4 gm/dl (11.8-15.2); Lymphocytes # (Auto) 0.7 K/mm3 (1.2-5.4); Lymphocytes % (Auto) 7.9 % (13.4-35.0); Mean Corpuscular HGB Conc 31 % (32-34); Mean Corpuscular Volume 86 fl (84-94); Monocytes # (Auto) 1.4 K/mm3 (0.0-0.8); Monocytes % (Auto) 15.4 % (0.0-7.3); Platelet Count 368 K/mm3 (140-440); Red Blood Count 3.49 M/mm3 (3.65-5.03); Red Cell Distribution Width 17.8 % (13.2-15.2)
[2019-05-18 02:25] LABS: Calcium 8.5 mg/dL (8.4-10.2)
[2019-05-18] MEDS: metroNIDAZOLE/NS 500 MG/100 ML 500 MG/100 ML BAG IV SCH ×3 (05:12→21:31)
[2019-05-18] MEDS: NORepinephrine/NS 4 MG-250 ML 4 MG/250 ML BAG IV SCH (06:28)
--- NOTE | 2019-05-18 08:36 | XRay Report ---
CHEST 1 VIEW INDICATION: ARDS. COMPARISON: 05/12/2019 FINDINGS: Support devices: Stable satisfactory device positioning. The endotracheal tube and right PICC line ar e satisfactory. A nasogastric tube tip is below the diaphragm and not imaged. Heart: Stable cardiomegaly. Pulmonary vasculature: Increased central vascular congestion and greater indistinctness of the vessel s when compared to the last exam. Lungs/Pleura: Hazy lung [place] with greater opacification in the left lung base than the right. No de finite consolidation. No pneumothorax. Additional findings: None. IMPRESSION: 1. Greater central vascular congestion and indistinctness of the vessels suggests CHF this may be als o related to body habitus and film technique. 2. Suspect pleural effusions, greater on the left than the right. Signer Name: Ish Christiansen MD Signed: 05/18/2019 8:32 AM Workstation Name: [id number]
[2019-05-18] MEDS: FAMOTIDINE 20 MG TAB PO SCH (09:36)
[2019-05-18] MEDS: ENOXAPARIN 30 MG/0.3 ML INJ SUB-Q SCH (09:36)
[2019-05-18] MEDS: cefTRIAXone/NS 2 GM/100 ML 2 GM/100 ML BAG IV SCH (09:36)
[2019-05-18] MEDS: levETIRAcetam 500 MG/5 ML ORAL LIQD PO SCH ×2 (09:36→21:31)
--- NOTE | 2019-05-18 10:35 | Progress Note ---
Assessment and Plan # Vanco toxicity--stop vanco,follow daily lytes #Acute kidney injury: creatinine remains higher than presumed baseline of 1.9 on 05/03/2019, cr is worse today, likely due to vancomycin toxicity and ATNfwill need POSTAL SUPERVISOR, follow up dialy lytes, body habitus will be difficult for access placement have vascular surgery assess for possible site of placement Suspect tubular injury in setting of sepsis, respiratory failure, hypotension. - continue supportive measures, appreciate pulm and ID input - avoid nephrotoxins - diuresis prn per pulm. - follow vanc levels daily # Hypernatremia: free water flushes with TF # HTN: BP reasonable, continue current management # Anemia: pRBC transfusion prn # Encephalopathy, seizure disorder, hypoxic respiratory failure, fever: ID and pulm following Subjective Date of service: 05/18/19 Principal diagnosis: HF; acute hypoxemic resp failure, SIRS, CARLA Interval history: resting in bed today Objective - Exam Narrative Exam: General: No acute distress/ intubated and sedated HEENT: ET tube in place Neck: Supple Chest:coarse mechanical breath sounds, PRVC with FiO2 50% Heart: Regular rate and rhythm Abdomen: Soft nontender Extremity: no edema Psych: sedated Derm: No petechial rash - Vital Signs Vital signs: Vital Signs - 12hr 05/17/19 05/17/19 05/17/19 22:45 23:00 23:15 Temperature Pulse Rate 86 88 95 H Pulse Rate [ From Monitor] Respiratory 24 17 20 Rate Blood Pressure 103/42 107/34 110/46 O2 Sat by Pulse 94 93 92 Oximetry 05/17/19 05/17/19 05/17/19 23:20 23:21 23:30 Temperature 100.5 F H Pulse Rate 94 H 94 H Pulse Rate [ From Monitor] Respiratory 24 Rate Blood Pressure 107/34 109/45 O2 Sat by Pulse 93 94 Oximetry 05/17/19 05/18/19 05/18/19 23:45 00:00 00:15 Temperature Pulse Rate 93 H 90 88 Pulse Rate [ 91 H From Monitor] Respiratory 25 H 24 25 H Rate Blood Pressure 101/42 105/43 100/41 O2 Sat by Pulse 91 93 93 Oximetry 05/18/19 05/18/19 05/18/19 00:30 00:46 01:00 Temperature Pulse Rate 86 95 H 94 H Pulse Rate [ From Monitor] Respiratory 22 24 18 Rate Blood Pressure 102/41 102/41 106/45 O2 Sat by Pulse 92 91 91 Oximetry 05/18/19 05/18/19 05/18/19 01:15 01:30 01:45 Temperature Pulse Rate 92 H 89 86 Pulse Rate [ From Monitor] Respiratory 26 H 26 H 24 Rate Blood Pressure 103/43 108/39 99/39 O2 Sat by Pulse 92 92 93 Oximetry 05/18/19 05/18/19 05/18/19 02:00 02:15 02:30 Temperature Pulse Rate 86 85 85 Pulse Rate [ From Monitor] Respiratory 25 H 26 H 26 H Rate Blood Pressure 103/41 100/40 101/38 O2 Sat by Pulse 93 93 93 Oximetry 05/18/19 05/18/19 05/18/19 02:45 03:00 03:06 Temperature 100.3 F H Pulse Rate 85 84 Pulse Rate [ From Monitor] Respiratory 24 25 H Rate Blood Pressure 99/40 101/41 O2 Sat by Pulse 93 93 Oximetry 05/18/19 05/18/19 05/18/19 03:15 03:30 03:45 Temperature Pulse Rate 83 85 84 Pulse Rate [ From Monitor] Respiratory 22 Rate Blood Pressure 99/39 101/42 103/39 O2 Sat by Pulse 93 93 94 Oximetry 05/18/19 05/18/19 05/18/19 04:00 04:15 04:30 Temperature Pulse Rate 85 88 92 H Pulse Rate [ 85 From Monitor] Respiratory 24 23 25 H Rate Blood Pressure 104/42 111/49 109/51 O2 Sat by Pulse 94 93 93 Oximetry 05/18/19 05/18/19 05/18/19 04:32 04:45 05:00 Temperature Pulse Rate 92 H 92 H 90 Pulse Rate [ From Monitor] Respiratory 26 H 25 H Rate Blood Pressure 111/49 111/47 111/49 O2 Sat by Pulse 92 92 93 Oximetry 05/18/19 05/18/19 05/18/19 05:15 05:30 05:45 Temperature Pulse Rate 91 H 89 86 Pulse Rate [ From Monitor] Respiratory 26 H 25 H 25 H Rate Blood Pressure 115/53 111/43 106/45 O2 Sat by Pulse 94 93 94 Oximetry 05/18/19 05/18/19 05/18/19 06:00 06:15 06:30 Temperature Pulse Rate 84 85 85 Pulse Rate [ From Monitor] Respiratory 26 H 25 H 26 H Rate Blood Pressure 105/47 104/47 109/47 O2 Sat by Pulse 92 93 93 Oximetry 05/18/19 05/18/19 05/18/19 06:45 07:00 07:15 Temperature Pulse Rate 85 89 93 H Pulse Rate [ From Monitor] Respiratory 27 H 25 H 25 H Rate Blood Pressure 104/47 124/57 100/33 O2 Sat by Pulse 93 92 91 Oximetry 05/18/19 05/18/19 05/18/19 07:30 07:45 07:51 Temperature Pulse Rate 94 H 92 H 93 H Pulse Rate [ From Monitor] Respiratory 26 H 25 H Rate Blood Pressure 108/43 105/42 105/42 O2 Sat by Pulse 91 92 92 Oximetry 05/18/19 05/18/19 05/18/19 08:00 08:15 08:30 Temperature 99.9 F H Pulse Rate 93 H 88 86 Pulse Rate [ From Monitor] Respiratory 26 H 24 26 H Rate Blood Pressure 109/41 105/43 108/42 O2 Sat by Pulse 92 93 93 Oximetry 05/18/19 05/18/19 05/18/19 08:45 09:00 09:15 Temperature Pulse Rate 84 85 90 Pulse Rate [ From Monitor] Respiratory 26 H 28 H 26 H Rate Blood Pressure 113/46 109/47 122/61 O2 Sat by Pulse 93 93 92 Oximetry 05/18/19 05/18/19 05/18/19 09:30 09:45 10:00 Temperature Pulse Rate 96 H 102 H 104 H Pulse Rate [ From Monitor] Respiratory 28 H 19 22 Rate Blood Pressure 111/49 132/69 136/68 O2 Sat by Pulse 92 93 91 Oximetry 05/18/19 10:15 Temperature Pulse Rate 98 H Pulse Rate [ From Monitor] Respiratory 26 H Rate Blood Pressure 114/40 O2 Sat by Pulse 91 Oximetry - Lab 05/18/19 01:50 05/18/19 01:50 Most recent lab results ABG pH 7.272 pH Units (7.350-7.450) L 05/17/19 04:30 ABG pCO2 52.8 mm Hg 05/17/19 04:30 ABG pO2 75.7 mm Hg (80.0-90.0) L 05/17/19 04:30 ABG HCO3 23.8 mmol/L (20.0-26.0) 05/17/19 04:30 ABG O2 Saturation 93.8 % (95.0-99.0) L 05/17/19 04:30 Calcium 8.5 mg/dL (8.4-10.2) 05/18/19 01:50 Phosphorus 4.90 mg/dL (2.5-4.5) H 05/02/19 00:06 Magnesium 2.30 mg/dL (1.7-2.3) 05/02/19 00:06 Urine Creatinine 292.8 mg/dL (0.1-20.0) H 05/07/19 22:40 Urine Sodium 11 mmol/L 05/07/19 22:40 Urine Total Protein 269 mg/dL (5-11.8) H 05/07/19 22:40 Medications & Allergies - Medications Allergies/Adverse Reactions: Allergies No Known Allergies Allergy (Verified 05/01/19 20:27) Home Medications: Home Medications Medication Instructions Recorded Confirmed Last Taken Type No Known Home Medications [No 05/03/19 05/03/19 Unknown History Reported Home Medications] Active Medications: Generic Name Dose Route Start Last Admin Trade Name Freq PRN Reason Stop Dose Admin Acetaminophen 650 mg 05/01/19 22:46 05/18/19 00:34 Tylenol PO 650 mg Q4H PRN Administration Pain MILD(1-3)/Fever >100.5/FREEMAN Lipase/Protease/Amylase 1 each 05/14/19 15:01 Pancreaze 10,500 Unit FEEDTUBE PRN PRN For Clogged Feeding Tube Dextrose 50 gm 05/01/19 20:24 D50w (25gm) Vial IV Q30MIN PRN Hypoglycemia Protocol Enoxaparin Sodium 30 mg 05/16/19 10:00 05/18/19 09:36 Enoxaparin SUB-Q 30 mg QDAY VICKEY Administration Famotidine 20 mg 05/16/19 10:00 05/18/19 09:36 Pepcid PO 20 mg DAILY VICKEY Administration Hydralazine HCl 20 mg 05/13/19 08:09 05/14/19 18:09 Apresoline IV 20 mg Q4HR PRN Administration SBP >/=160 Hydrophilic Ointment 1 applic 05/01/19 21:14 Vaseline Lip Therapy TP Q2HR PRN Dry Lips Fentanyl Citrate 2,000 mcg in 100 mls @ 10.195 mls/hr 05/01/19 22:00 05/18/19 09:38 Fentanyl Drip Premix IV 2 mcg/kg/hr TITR VICKEY 20.39 mls/hr Administration Protocol 1 MCG/KG/HR Propofol 1,000 mg in 100 mls @ 7.011 mls/hr 05/03/19 04:00 05/18/19 09:37 Diprivan 10 Mg/Ml IV 15 mcg/kg/min TITR VICKEY 21.033 mls/hr Administration Protocol 5 MCG/KG/MIN Norepinephrine 4 mg in 250 mls @ 7.5 mls/hr 05/03/19 18:00 05/18/19 09:35 Levophed Drip 4 Mg/Ns 250 Ml IV 2 mcg/min TITR VICKEY 7.5 mls/hr Titration Protocol 2 MCG/MIN Sodium Chloride 500 mls @ 10 mls/hr 05/06/19 15:00 Nacl 0.9% 500 Ml IV DIRECT VICKEY Ceftriaxone Sodium 2 gm in 100 mls @ 200 mls/hr 05/07/19 22:00 05/18/19 09:36 Rocephin/Ns 2 Gm/100 Ml IV 05/21/19 23:59 200 mls/hr Q12HR VICKEY Administration Protocol Metronidazole 500 mg in 100 mls @ 100 mls/hr 05/11/19 14:00 05/18/19 05:12 Flagyl 500 Mg/100 Ml IV 05/21/19 13:59 100 mls/hr Q8HR VICKEY Administration Protocol Nicardipine HCl 50 mg/ Sodium 250 mls @ 25 mls/hr 05/13/19 10:00 05/14/19 23:12 Chloride IV 0 mg/hr TITR VICKEY 0 mls/hr Titration Protocol 5 MG/HR Labetalol HCl 100 mg 05/14/19 14:00 05/17/19 22:05 Labetalol PO Not Given Q8HR VICKEY Levetiracetam 750 mg 05/13/19 10:00 05/18/19 09:36 Keppra PO 750 mg BID VICKEY Administration Lorazepam 2 mg 05/06/19 06:22 05/10/19 16:17 Ativan IV 2 mg Q4H PRN Administration Seizures/AGITATION Multi-Ingred Cream/Lotion/Oil/Oint 1 applic 05/01/19 21:14 Artificial Tears Ophth Oint OU Q4HR PRN Dry Eye(s) Ondansetron HCl 4 mg 05/01/19 22:46 Zofran IV Q8H PRN Nausea And Vomiting Simple Syrup 15 ml 05/14/19 15:01 Simple Syrup FEEDTUBE PRN PRN Hypoglycemia Simple Syrup 30 ml 05/14/19 15:01 Simple Syrup FEEDTUBE PRN PRN Hypoglycemia Sodium Bicarbonate 325 mg 05/14/19 15:01 Sodium Bicarbonate FEEDTUBE PRN PRN For Clogged Feeding Tube Sodium Chloride 10 ml 05/02/19 10:00 05/17/19 21:11 Sodium Chloride Flush Syringe 10 Ml IV 10 ml BID VICKEY Administration Sodium Chloride 10 ml 05/01/19 22:46 05/05/19 02:28 Sodium Chloride Flush Syringe 10 Ml IV 10 ml PRN PRN Administration LINE FLUSH
--- NOTE | 2019-05-18 10:42 | Progress Note ---
Assessment and Plan Cultures: Blood cultures 05/11/19: no growth thus far Blood cultures 05/18/19 pending Sputum culture 05/11/19: no growth thus far urine culture: no growth resp culture: no growth A/P: 34-year-old male with obesity admitted with: #Fever, SIRS: Patient was afebrile for the first 2 days of hospitalization, then he developed a fever of 101.2F. ?aspiration related. Apparently was using CPAP. Now febrile again, ?UTI. UA showed pyuria, had indwelling Berkowitz which was removed. Urine culture with no growth. Fevers now recurred 05/17 overnight. Unclear etiology. Blood cultures repeated. 05/18 CXR with greater vascular congestion, pleural effusions. #Acute hypoxic hypercapneic respiratory failure, possibly obesity hypoventilation syndrome: on the vent. Pulmonary managing. #Morbid obesity #CARLA: creatinine elevated. dose abx accordingly. #Elevated LFTs: RUQ US showed fatty liver, small GB sludge. Improving. #Acute encephalopathy with ?seizure activity: persistent fevers. Agree with possible meningitis coverage Recs: - continue empiric meningitis coverage with Vancomycin - Would complete 2 weeks of therapy, expected stop date 05/21 for vancomycin - continue metronidazole for aspiration concern - with new fevers changed ceftriaxone to cefepime to add PsA coverage given risk factors. Dr. Wilks taking over tomorrow. Nancy Bearden MD [facility] ([facility]) M: [phone] O: [phone] F: [phone] Subjective Date of service: 05/18/19 Principal diagnosis: HF; acute hypoxemic resp failure, SIRS, CARLA Interval history: Fevers recurred overnight to 100.7. White count remains normal. Objective - Exam Narrative Exam: Constitutional: sedated, intubated. Morbid obesity Head, Ears, Nose: Normocephalic, atraumatic. External ears, nose normal Eyes: Conjunctivae/corneas clear. No icterus. No ptosis. Neck: intubated Oral: intubated Cardiovascular: S1, S2 normal. Respiratory: Good air entry, clear to auscultation bilaterally GI: Soft, non-tender; bowel sounds normal. No peritoneal signs Musculoskeletal: No pedal edema, no cyanosis. Skin: No rash or abscess Hem/Lymphatic: No palpable cervical or supraclavicular nodes. No lymphangitis Psych: no agitation Neurological: sedated, intubated, on vent - Constitutional Vitals: Vital Signs Temp Pulse Resp BP Pulse Ox 99.9 F H 98 H 26 H 114/40 91 05/18/19 08:00 05/18/19 10:15 05/18/19 10:15 05/18/19 10:15 05/18/19 10:15 Temperature -Last 24 Hours Temperature 99.9 F Temperature 100.3 F Temperature 100.5 F Temperature 100.3 F Temperature 100.7 F Temperature 100.3 F - Labs CBC & Chem 7: 05/18/19 01:50 05/18/19 01:50 Labs: Abnormal lab results 05/18/19 05/18/19 05/18/19 Range/Units 01:50 01:50 04:41 RBC 3.49 L (3.65-5.03) M/mm3 Hgb 9.4 L (11.8-15.2) gm/dl Hct 30.0 L (35.5-45.6) % MCH 27 L (28-32) pg MCHC 31 L (32-34) % RDW 17.8 H (13.2-15.2) % Lymph % (Auto) 7.9 L (13.4-35.0) % [place] % (Auto) 15.4 H (0.0-7.3) % Eos % (Auto) 6.3 H (0.0-4.3) % Lymph # 0.7 L (1.2-5.4) K/mm3 [place] # 1.4 H (0.0-0.8) K/mm3 Eos # 0.6 H (0.0-0.4) K/mm3 Seg Neutrophils % 70.2 H (40.0-70.0) % POC ABG pH 7.260 L (7.35-7.45) POC ABG pCO2 54.9 H (35-45) Potassium 5.6 H (3.6-5.0) mmol/L BUN 104 H (9-20) mg/dL Creatinine 6.6 H (0.8-1.5) mg/dL Glucose 107 H (75-100) mg/dL POC Glucose (70-105) 05/18/19 Range/Units 05:24 RBC (3.65-5.03) M/mm3 Hgb (11.8-15.2) gm/dl Hct (35.5-45.6) % MCH (28-32) pg MCHC (32-34) % RDW (13.2-15.2) % Lymph % (Auto) (13.4-35.0) % [place] % (Auto) (0.0-7.3) % Eos % (Auto) (0.0-4.3) % Lymph # (1.2-5.4) K/mm3 [place] # (0.0-0.8) K/mm3 Eos # (0.0-0.4) K/mm3 Seg Neutrophils % (40.0-70.0) % POC ABG pH (7.35-7.45) POC ABG pCO2 (35-45) Potassium (3.6-5.0) mmol/L BUN (9-20) mg/dL Creatinine (0.8-1.5) mg/dL Glucose (75-100) mg/dL POC Glucose 106 H (70-105)
--- NOTE | 2019-05-18 11:21 | Progress Note ---
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 last EEG showed no seizure activity as previously explained cat no do MRI or CT of the brain Objective - Vital Sign Vital Signs - 12hr 05/17/19 05/17/19 05/17/19 23:20 23:21 23:30 Temperature 100.5 F H Pulse Rate 94 H 94 H Pulse Rate [ From Monitor] Respiratory 24 Rate Blood Pressure 107/34 109/45 O2 Sat by Pulse 93 94 Oximetry 05/17/19 05/18/19 05/18/19 23:45 00:00 00:15 Temperature Pulse Rate 93 H 90 88 Pulse Rate [ 91 H From Monitor] Respiratory 25 H 24 25 H Rate Blood Pressure 101/42 105/43 100/41 O2 Sat by Pulse 91 93 93 Oximetry 05/18/19 05/18/19 05/18/19 00:30 00:46 01:00 Temperature Pulse Rate 86 95 H 94 H Pulse Rate [ From Monitor] Respiratory 24 18 Rate Blood Pressure 102/41 102/41 106/45 O2 Sat by Pulse 92 91 91 Oximetry 05/18/19 05/18/19 05/18/19 01:15 01:30 01:45 Temperature Pulse Rate 92 H 89 86 Pulse Rate [ From Monitor] Respiratory 26 H 26 H 24 Rate Blood Pressure 103/43 108/39 99/39 O2 Sat by Pulse 92 92 93 Oximetry 05/18/19 05/18/19 05/18/19 02:00 02:15 02:30 Temperature Pulse Rate 86 85 85 Pulse Rate [ From Monitor] Respiratory 25 H 26 H 26 H Rate Blood Pressure 103/41 100/40 101/38 O2 Sat by Pulse 93 93 93 Oximetry 05/18/19 05/18/19 05/18/19 02:45 03:00 03:06 Temperature 100.3 F H Pulse Rate 85 84 Pulse Rate [ From Monitor] Respiratory 24 25 H Rate Blood Pressure 99/40 101/41 O2 Sat by Pulse 93 93 Oximetry 05/18/19 05/18/19 05/18/19 03:15 03:30 03:45 Temperature Pulse Rate 83 85 84 Pulse Rate [ From Monitor] Respiratory 23 24 22 Rate Blood Pressure 99/39 101/42 103/39 O2 Sat by Pulse 93 93 94 Oximetry 05/18/19 05/18/19 05/18/19 04:00 04:15 04:30 Temperature Pulse Rate 85 88 92 H Pulse Rate [ 85 From Monitor] Respiratory 24 23 25 H Rate Blood Pressure 104/42 111/49 109/51 O2 Sat by Pulse 94 93 93 Oximetry 05/18/19 05/18/19 05/18/19 04:32 04:45 05:00 Temperature Pulse Rate 92 H 92 H 90 Pulse Rate [ From Monitor] Respiratory 26 H 25 H Rate Blood Pressure 111/49 111/47 111/49 O2 Sat by Pulse 92 92 93 Oximetry 05/18/19 05/18/19 05/18/19 05:15 05:30 05:45 Temperature Pulse Rate 91 H 89 86 Pulse Rate [ From Monitor] Respiratory 26 H 25 H 25 H Rate Blood Pressure 115/53 111/43 106/45 O2 Sat by Pulse 94 93 94 Oximetry 05/18/19 05/18/19 05/18/19 06:00 06:15 06:30 Temperature Pulse Rate 84 85 85 Pulse Rate [ From Monitor] Respiratory 26 H 25 H 26 H Rate Blood Pressure 105/47 104/47 109/47 O2 Sat by Pulse 92 93 93 Oximetry 05/18/19 05/18/19 05/18/19 06:45 07:00 07:15 Temperature Pulse Rate 85 89 93 H Pulse Rate [ From Monitor] Respiratory 27 H 25 H 25 H Rate Blood Pressure 104/47 124/57 100/33 O2 Sat by Pulse 93 92 91 Oximetry 05/18/19 05/18/19 05/18/19 07:30 07:45 07:51 Temperature Pulse Rate 94 H 92 H 93 H Pulse Rate [ From Monitor] Respiratory 26 H 25 H Rate Blood Pressure 108/43 105/42 105/42 O2 Sat by Pulse 91 92 92 Oximetry 05/18/19 05/18/19 05/18/19 08:00 08:15 08:30 Temperature 99.9 F H Pulse Rate 93 H 88 86 Pulse Rate [ From Monitor] Respiratory 26 H 24 26 H Rate Blood Pressure 109/41 105/43 108/42 O2 Sat by Pulse 92 93 93 Oximetry 05/18/19 05/18/19 05/18/19 08:45 09:00 09:15 Temperature Pulse Rate 84 85 90 Pulse Rate [ From Monitor] Respiratory 26 H 28 H 26 H Rate Blood Pressure 113/46 109/47 122/61 O2 Sat by Pulse 93 93 92 Oximetry 05/18/19 05/18/19 05/18/19 09:30 09:45 10:00 Temperature Pulse Rate 96 H 102 H 104 H Pulse Rate [ From Monitor] Respiratory 28 H 19 22 Rate Blood Pressure 111/49 132/69 136/68 O2 Sat by Pulse 92 93 91 Oximetry 05/18/19 10:15 Temperature Pulse Rate 98 H Pulse Rate [ From Monitor] Respiratory 26 H Rate Blood Pressure 114/40 O2 Sat by Pulse 91 Oximetry - Laboratory Findings CBC and BMP: 05/18/19 01:50 05/18/19 01:50 Abnormal Lab Findings: Abnormal Labs 05/01/19 05/01/19 05/01/19 17:50 19:26 22:36 WBC RBC Hgb Hct MCV MCH MCHC RDW Lymph % (Auto) [place] % (Auto) Eos % (Auto) Lymph # [place] # Eos # Seg Neutrophils % Seg Neuts % (Manual) Lymphocytes % (Manual) Eosinophils % (Manual) Seg Neutrophils # Lymphocytes # (Manual) Eosinophils # (Manual) PT INR APTT POC ABG pH 7.272 L 7.331 L ABG pH POC ABG pCO2 52.8 H POC ABG pO2 ABG pO2 ABG HCO3 ABG O2 Saturation ABG Base Excess ABG Hemoglobin Oxyhemoglobin Sodium 136 L Potassium 6.5 H* Chloride 97.2 L Carbon Dioxide BUN 60 H Creatinine Glucose 113 H POC Glucose Uric Acid Calcium Phosphorus Magnesium 2.40 H AST 139 H ALT 154 H Total Creatine Kinase CK-MB (CK-2) Troponin T NT-Pro-B Natriuret Pep Total Protein Albumin 3.8 L Triglycerides HDL Cholesterol Urine WBC (Auto) Urine Creatinine Urine Total Protein Vancomycin Trough 05/01/19 05/01/19 05/01/19 Unknown Unknown Unknown WBC 16.1 H RBC Hgb Hct MCV MCH MCHC RDW 17.2 H Lymph % (Auto) [place] % (Auto) 9.6 H Eos % (Auto) Lymph # [place] # 1.5 H Eos # Seg Neutrophils % 73.0 H Seg Neuts % (Manual) Lymphocytes % (Manual) Eosinophils % (Manual) Seg Neutrophils # 11.7 H Lymphocytes # (Manual) Eosinophils # (Manual) PT 15.4 H INR 1.23 H APTT 22.7 L POC ABG pH ABG pH POC ABG pCO2 POC ABG pO2 ABG pO2 ABG HCO3 ABG O2 Saturation ABG Base Excess ABG Hemoglobin Oxyhemoglobin Sodium Potassium Chloride Carbon Dioxide BUN Creatinine Glucose POC Glucose Uric Acid Calcium Phosphorus Magnesium AST ALT Total Creatine Kinase CK-MB (CK-2) Troponin T NT-Pro-B Natriuret Pep 6831 H Total Protein Albumin Triglycerides HDL Cholesterol Urine WBC (Auto) Urine Creatinine Urine Total Protein Vancomycin Trough 05/01/19 05/02/19 05/02/19 Unknown 00:06 00:06 WBC RBC Hgb Hct MCV MCH MCHC RDW Lymph % (Auto) [place] % (Auto) Eos % (Auto) Lymph # [place] # Eos # Seg Neutrophils % Seg Neuts % (Manual) Lymphocytes % (Manual) Eosinophils % (Manual) Seg Neutrophils # Lymphocytes # (Manual) Eosinophils # (Manual) PT INR APTT POC ABG pH ABG pH POC ABG pCO2 POC ABG pO2 ABG pO2 ABG HCO3 ABG O2 Saturation ABG Base Excess ABG Hemoglobin Oxyhemoglobin Sodium Potassium Chloride Carbon Dioxide BUN Creatinine Glucose POC Glucose Uric Acid Calcium Phosphorus 4.90 H Magnesium AST ALT Total Creatine Kinase 226 H CK-MB (CK-2) 5.7 H Troponin T 0.044 H NT-Pro-B Natriuret Pep Total Protein Albumin Triglycerides 182 H HDL Cholesterol 18 L Urine WBC (Auto) Urine Creatinine Urine Total Protein Vancomycin Trough 05/02/19 05/02/19 05/02/19 02:08 04:40 04:41 WBC 17.6 H RBC Hgb Hct MCV MCH 27 L MCHC RDW 17.4 H Lymph % (Auto) 10.2 L [place] % (Auto) 11.0 H Eos % (Auto) Lymph # [place] # 1.9 H Eos # Seg Neutrophils % 78.0 H Seg Neuts % (Manual) Lymphocytes % (Manual) Eosinophils % (Manual) Seg Neutrophils # 13.8 H Lymphocytes # (Manual) Eosinophils # (Manual) PT INR APTT POC ABG pH ABG pH POC ABG pCO2 46.8 H POC ABG pO2 63 L ABG pO2 ABG HCO3 ABG O2 Saturation ABG Base Excess ABG Hemoglobin Oxyhemoglobin Sodium Potassium Chloride 96.3 L Carbon Dioxide BUN 63 H Creatinine 1.7 H Glucose POC Glucose Uric Acid Calcium Phosphorus Magnesium AST ALT Total Creatine Kinase CK-MB (CK-2) Troponin T NT-Pro-B Natriuret Pep Total Protein Albumin Triglycerides HDL Cholesterol Urine WBC (Auto) Urine Creatinine Urine Total Protein Vancomycin Trough 05/02/19 05/02/19 05/02/19 04:41 04:41 16:05 WBC RBC Hgb Hct MCV MCH MCHC RDW Lymph % (Auto) [place] % (Auto) Eos % (Auto) Lymph # [place] # Eos # Seg Neutrophils % Seg Neuts % (Manual) Lymphocytes % (Manual) Eosinophils % (Manual) Seg Neutrophils # Lymphocytes # (Manual) Eosinophils # (Manual) PT INR APTT POC ABG pH ABG pH POC ABG pCO2 POC ABG pO2 ABG pO2 66.6 L ABG HCO3 31.9 H ABG O2 Saturation 92.5 L ABG Base Excess 5.8 H ABG Hemoglobin 13.3 L Oxyhemoglobin 90.6 L Sodium Potassium Chloride 97.2 L Carbon Dioxide BUN 61 H Creatinine 1.8 H Glucose POC Glucose Uric Acid Calcium Phosphorus Magnesium AST ALT Total Creatine Kinase CK-MB (CK-2) 5.2 H Troponin T 0.067 H D NT-Pro-B Natriuret Pep Total Protein Albumin Triglycerides HDL Cholesterol Urine WBC (Auto) Urine Creatinine Urine Total Protein Vancomycin Trough 05/02/19 05/03/19 05/03/19 20:39 04:35 05:05 WBC 11.8 H RBC Hgb Hct MCV MCH 27 L MCHC 31 L RDW 17.2 H Lymph % (Auto) [place] % (Auto) Eos % (Auto) Lymph # [place] # Eos # Seg Neutrophils % Seg Neuts % (Manual) Lymphocytes % (Manual) Eosinophils % (Manual) Seg Neutrophils # Lymphocytes # (Manual) Eosinophils # (Manual) PT INR APTT POC ABG pH ABG pH POC ABG pCO2 53.6 H 54.0 H POC ABG pO2 55 L 63 L ABG pO2 ABG HCO3 ABG O2 Saturation ABG Base Excess ABG Hemoglobin Oxyhemoglobin Sodium Potassium Chloride Carbon Dioxide BUN Creatinine Glucose POC Glucose Uric Acid Calcium Phosphorus Magnesium AST ALT Total Creatine Kinase CK-MB (CK-2) Troponin T NT-Pro-B Natriuret Pep Total Protein Albumin Triglycerides HDL Cholesterol Urine WBC (Auto) Urine Creatinine Urine Total Protein Vancomycin Trough 12/09/19 12/09/19 12/09/19 05:05 10:55 16:48 WBC RBC Hgb Hct MCV MCH MCHC RDW Lymph % (Auto) [place] % (Auto) Eos % (Auto) Lymph # [place] # Eos # Seg Neutrophils % Seg Neuts % (Manual) Lymphocytes % (Manual) Eosinophils % (Manual) Seg Neutrophils # Lymphocytes # (Manual) Eosinophils # (Manual) PT INR APTT POC ABG pH 7.604 H ABG pH POC ABG pCO2 POC ABG pO2 58 L ABG pO2 ABG HCO3 ABG O2 Saturation ABG Base Excess ABG Hemoglobin Oxyhemoglobin Sodium Potassium Chloride Carbon Dioxide BUN 52 H Creatinine 1.9 H Glucose 103 H POC Glucose Uric Acid Calcium Phosphorus Magnesium AST ALT Total Creatine Kinase CK-MB (CK-2) Troponin T NT-Pro-B Natriuret Pep Total Protein Albumin Triglycerides HDL Cholesterol Urine WBC (Auto) 33.0 H Urine Creatinine Urine Total Protein Vancomycin Trough 05/04/19 05/04/19 05/04/19 04:49 06:50 06:50 WBC 16.0 H RBC Hgb Hct MCV MCH 27 L MCHC 31 L RDW 17.8 H Lymph % (Auto) [place] % (Auto) Eos % (Auto) Lymph # [place] # Eos # Seg Neutrophils % Seg Neuts % (Manual) Lymphocytes % (Manual) Eosinophils % (Manual) Seg Neutrophils # Lymphocytes # (Manual) Eosinophils # (Manual) PT INR APTT POC ABG pH 7.273 L ABG pH POC ABG pCO2 POC ABG pO2 ABG pO2 ABG HCO3 ABG O2 Saturation ABG Base Excess ABG Hemoglobin Oxyhemoglobin Sodium 148 H Potassium 5.5 H Chloride Carbon Dioxide BUN 53 H Creatinine 3.3 H D Glucose 106 H POC Glucose Uric Acid Calcium 8.3 L Phosphorus Magnesium AST ALT Total Creatine Kinase CK-MB (CK-2) Troponin T NT-Pro-B Natriuret Pep Total Protein Albumin Triglycerides HDL Cholesterol Urine WBC (Auto) Urine Creatinine Urine Total Protein Vancomycin Trough 05/05/19 05/05/19 05/05/19 00:05 04:30 05:00 WBC RBC Hgb Hct MCV MCH MCHC RDW Lymph % (Auto) [place] % (Auto) Eos % (Auto) Lymph # [place] # Eos # Seg Neutrophils % Seg Neuts % (Manual) Lymphocytes % (Manual) Eosinophils % (Manual) Seg Neutrophils # Lymphocytes # (Manual) Eosinophils # (Manual) PT INR APTT POC ABG pH 7.225 L ABG pH POC ABG pCO2 > 70 H POC ABG pO2 ABG pO2 ABG HCO3 ABG O2 Saturation ABG Base Excess ABG Hemoglobin Oxyhemoglobin Sodium 151 H Potassium 5.1 H Chloride Carbon Dioxide BUN 64 H Creatinine 3.5 H Glucose 117 H POC Glucose 141 H Uric Acid Calcium 7.5 L Phosphorus Magnesium AST 93 H ALT 65 H Total Creatine Kinase CK-MB (CK-2) Troponin T NT-Pro-B Natriuret Pep Total Protein Albumin 2.9 L Triglycerides HDL Cholesterol Urine WBC (Auto) Urine Creatinine Urine Total Protein Vancomycin Trough 05/05/19 05/05/19 05/05/19 05:00 12:02 17:46 WBC 12.0 H RBC Hgb 11.3 L Hct MCV MCH 27 L MCHC 30 L RDW 18.4 H Lymph % (Auto) 7.9 L [place] % (Auto) 10.2 H Eos % (Auto) Lymph # 1.0 L [place] # 1.2 H Eos # Seg Neutrophils % 80.8 H Seg Neuts % (Manual) Lymphocytes % (Manual) Eosinophils % (Manual) Seg Neutrophils # 9.7 H Lymphocytes # (Manual) Eosinophils # (Manual) PT INR APTT POC ABG pH ABG pH POC ABG pCO2 POC ABG pO2 ABG pO2 ABG HCO3 ABG O2 Saturation ABG Base Excess ABG Hemoglobin Oxyhemoglobin Sodium Potassium Chloride Carbon Dioxide BUN Creatinine Glucose POC Glucose 125 H 112 H Uric Acid Calcium Phosphorus Magnesium AST ALT Total Creatine Kinase CK-MB (CK-2) Troponin T NT-Pro-B Natriuret Pep Total Protein Albumin Triglycerides HDL Cholesterol Urine WBC (Auto) Urine Creatinine Urine Total Protein Vancomycin Trough 05/05/19 05/06/19 05/06/19 23:42 03:58 04:45 WBC 11.4 H RBC Hgb 10.7 L Hct 34.2 L MCV MCH 27 L MCHC 31 L RDW 16.9 H Lymph % (Auto) [place] % (Auto) Eos % (Auto) Lymph # [place] # Eos # Seg Neutrophils % Seg Neuts % (Manual) Lymphocytes % (Manual) Eosinophils % (Manual) Seg Neutrophils # Lymphocytes # (Manual) Eosinophils # (Manual) PT INR APTT POC ABG pH ABG pH POC ABG pCO2 62.4 H POC ABG pO2 111 H ABG pO2 ABG HCO3 ABG O2 Saturation ABG Base Excess ABG Hemoglobin Oxyhemoglobin Sodium Potassium Chloride Carbon Dioxide BUN Creatinine Glucose POC Glucose 128 H Uric Acid Calcium Phosphorus Magnesium AST ALT Total Creatine Kinase CK-MB (CK-2) Troponin T NT-Pro-B Natriuret Pep Total Protein Albumin Triglycerides HDL Cholesterol Urine WBC (Auto) Urine Creatinine Urine Total Protein Vancomycin Trough 05/06/19 05/06/19 05/06/19 04:45 05:33 12:30 WBC RBC Hgb Hct MCV MCH MCHC RDW Lymph % (Auto) [place] % (Auto) Eos % (Auto) Lymph # [place] # Eos # Seg Neutrophils % Seg Neuts % (Manual) Lymphocytes % (Manual) Eosinophils % (Manual) Seg Neutrophils # Lymphocytes # (Manual) Eosinophils # (Manual) PT INR APTT POC ABG pH ABG pH POC ABG pCO2 POC ABG pO2 ABG pO2 ABG HCO3 ABG O2 Saturation ABG Base Excess ABG Hemoglobin Oxyhemoglobin Sodium 149 H Potassium Chloride Carbon Dioxide 31 H BUN 67 H Creatinine 3.2 H Glucose 125 H POC Glucose 117 H 116 H Uric Acid Calcium 7.5 L Phosphorus Magnesium AST ALT Total Creatine Kinase CK-MB (CK-2) Troponin T NT-Pro-B Natriuret Pep Total Protein Albumin Triglycerides HDL Cholesterol Urine WBC (Auto) Urine Creatinine Urine Total Protein Vancomycin Trough 05/06/19 05/06/19 05/07/19 18:34 23:16 05:22 WBC RBC Hgb Hct MCV MCH MCHC RDW Lymph % (Auto) [place] % (Auto) Eos % (Auto) Lymph # [place] # Eos # Seg Neutrophils % Seg Neuts % (Manual) Lymphocytes % (Manual) Eosinophils % (Manual) Seg Neutrophils # Lymphocytes # (Manual) Eosinophils # (Manual) PT INR APTT POC ABG pH ABG pH POC ABG pCO2 POC ABG pO2 ABG pO2 ABG HCO3 ABG O2 Saturation ABG Base Excess ABG Hemoglobin Oxyhemoglobin Sodium Potassium Chloride Carbon Dioxide BUN Creatinine Glucose POC Glucose 128 H 143 H 166 H Uric Acid Calcium Phosphorus Magnesium AST ALT Total Creatine Kinase CK-MB (CK-2) Troponin T NT-Pro-B Natriuret Pep Total Protein Albumin Triglycerides HDL Cholesterol Urine WBC (Auto) Urine Creatinine Urine Total Protein Vancomycin Trough 05/07/19 05/07/19 05/07/19 06:33 07:03 09:35 WBC RBC Hgb Hct MCV MCH MCHC RDW Lymph % (Auto) [place] % (Auto) Eos % (Auto) Lymph # [place] # Eos # Seg Neutrophils % Seg Neuts % (Manual) Lymphocytes % (Manual) Eosinophils % (Manual) Seg Neutrophils # Lymphocytes # (Manual) Eosinophils # (Manual) PT INR APTT POC ABG pH 7.263 L 7.288 L ABG pH POC ABG pCO2 POC ABG pO2 51 L 56 L ABG pO2 ABG HCO3 ABG O2 Saturation ABG Base Excess ABG Hemoglobin Oxyhemoglobin Sodium Potassium Chloride Carbon Dioxide BUN 76 H Creatinine 3.2 H Glucose 147 H POC Glucose Uric Acid Calcium 7.9 L Phosphorus Magnesium AST ALT Total Creatine Kinase CK-MB (CK-2) Troponin T NT-Pro-B Natriuret Pep Total Protein Albumin Triglycerides HDL Cholesterol Urine WBC (Auto) Urine Creatinine Urine Total Protein Vancomycin Trough 05/07/19 05/07/19 05/07/19 09:35 12:17 13:45 WBC 13.4 H RBC Hgb 11.6 L Hct MCV MCH 27 L MCHC 31 L RDW 17.5 H Lymph % (Auto) [place] % (Auto) Eos % (Auto) Lymph # [place] # Eos # Seg Neutrophils % Seg Neuts % (Manual) Lymphocytes % (Manual) Eosinophils % (Manual) Seg Neutrophils # Lymphocytes # (Manual) Eosinophils # (Manual) PT INR APTT POC ABG pH ABG pH POC ABG pCO2 POC ABG pO2 ABG pO2 ABG HCO3 ABG O2 Saturation ABG Base Excess ABG Hemoglobin Oxyhemoglobin Sodium Potassium Chloride Carbon Dioxide BUN Creatinine Glucose POC Glucose 130 H Uric Acid 18.0 H Calcium Phosphorus Magnesium AST ALT Total Creatine Kinase CK-MB (CK-2) Troponin T NT-Pro-B Natriuret Pep Total Protein Albumin Triglycerides HDL Cholesterol Urine WBC (Auto) Urine Creatinine Urine Total Protein Vancomycin Trough 05/07/19 05/07/19 05/08/19 17:39 22:40 05:06 WBC RBC Hgb Hct MCV MCH MCHC RDW Lymph % (Auto) [place] % (Auto) Eos % (Auto) Lymph # [place] # Eos # Seg Neutrophils % Seg Neuts % (Manual) Lymphocytes % (Manual) Eosinophils % (Manual) Seg Neutrophils # Lymphocytes # (Manual) Eosinophils # (Manual) PT INR APTT POC ABG pH ABG pH POC ABG pCO2 POC ABG pO2 ABG pO2 ABG HCO3 ABG O2 Saturation ABG Base Excess ABG Hemoglobin Oxyhemoglobin Sodium Potassium Chloride Carbon Dioxide BUN Creatinine Glucose POC Glucose 116 H 148 H Uric Acid Calcium Phosphorus Magnesium AST ALT Total Creatine Kinase CK-MB (CK-2) Troponin T NT-Pro-B Natriuret Pep Total Protein Albumin Triglycerides HDL Cholesterol Urine WBC (Auto) Urine Creatinine 292.8 H Urine Total Protein 269 H Vancomycin Trough 05/08/19 05/08/19 05/08/19 05:32 11:28 13:48 WBC RBC Hgb Hct MCV MCH MCHC RDW Lymph % (Auto) [place] % (Auto) Eos % (Auto) Lymph # [place] # Eos # Seg Neutrophils % Seg Neuts % (Manual) Lymphocytes % (Manual) Eosinophils % (Manual) Seg Neutrophils # Lymphocytes # (Manual) Eosinophils # (Manual) PT INR APTT POC ABG pH ABG pH POC ABG pCO2 45.4 H POC ABG pO2 64 L ABG pO2 ABG HCO3 ABG O2 Saturation ABG Base Excess ABG Hemoglobin Oxyhemoglobin Sodium Potassium Chloride Carbon Dioxide BUN 73 H Creatinine 2.7 H Glucose 127 H POC Glucose 107 H Uric Acid Calcium 7.6 L Phosphorus Magnesium AST ALT Total Creatine Kinase CK-MB (CK-2) Troponin T NT-Pro-B Natriuret Pep Total Protein Albumin Triglycerides HDL Cholesterol Urine WBC (Auto) Urine Creatinine Urine Total Protein Vancomycin Trough 05/08/19 05/09/19 05/09/19 17:48 04:50 04:53 WBC RBC 3.07 L Hgb 8.5 L D Hct 29.3 L D MCV 96 H MCH MCHC 29 L RDW 18.1 H Lymph % (Auto) [place] % (Auto) Eos % (Auto) Lymph # [place] # Eos # Seg Neutrophils % Seg Neuts % (Manual) Lymphocytes % (Manual) Eosinophils % (Manual) Seg Neutrophils # Lymphocytes # (Manual) Eosinophils # (Manual) PT INR APTT POC ABG pH 7.316 L ABG pH POC ABG pCO2 66.0 H POC ABG pO2 69 L ABG pO2 ABG HCO3 ABG O2 Saturation ABG Base Excess ABG Hemoglobin Oxyhemoglobin Sodium Potassium Chloride Carbon Dioxide BUN Creatinine Glucose POC Glucose 155 H Uric Acid Calcium Phosphorus Magnesium AST ALT Total Creatine Kinase CK-MB (CK-2) Troponin T NT-Pro-B Natriuret Pep Total Protein Albumin Triglycerides HDL Cholesterol Urine WBC (Auto) Urine Creatinine Urine Total Protein Vancomycin Trough 05/09/19 05/09/19 05/09/19 05:46 07:24 12:10 WBC RBC Hgb Hct MCV MCH MCHC RDW Lymph % (Auto) [place] % (Auto) Eos % (Auto) Lymph # [place] # Eos # Seg Neutrophils % Seg Neuts % (Manual) Lymphocytes % (Manual) Eosinophils % (Manual) Seg Neutrophils # Lymphocytes # (Manual) Eosinophils # (Manual) PT INR APTT POC ABG pH ABG pH POC ABG pCO2 POC ABG pO2 ABG pO2 ABG HCO3 ABG O2 Saturation ABG Base Excess ABG Hemoglobin Oxyhemoglobin Sodium Potassium Chloride Carbon Dioxide BUN 73 H Creatinine 2.4 H Glucose 153 H POC Glucose 123 H 148 H Uric Acid Calcium 8.2 L Phosphorus Magnesium AST 45 H ALT Total Creatine Kinase CK-MB (CK-2) Troponin T NT-Pro-B Natriuret Pep Total Protein 6.0 L Albumin 1.9 L Triglycerides HDL Cholesterol Urine WBC (Auto) Urine Creatinine Urine Total Protein Vancomycin Trough 05/09/19 05/09/19 05/10/19 18:23 23:26 04:52 WBC RBC Hgb Hct MCV MCH MCHC RDW Lymph % (Auto) [place] % (Auto) Eos % (Auto) Lymph # [place] # Eos # Seg Neutrophils % Seg Neuts % (Manual) Lymphocytes % (Manual) Eosinophils % (Manual) Seg Neutrophils # Lymphocytes # (Manual) Eosinophils # (Manual) PT INR APTT POC ABG pH 7.305 L ABG pH POC ABG pCO2 62.6 H POC ABG pO2 ABG pO2 ABG HCO3 ABG O2 Saturation ABG Base Excess ABG Hemoglobin Oxyhemoglobin Sodium Potassium Chloride Carbon Dioxide BUN Creatinine Glucose POC Glucose 147 H 121 H Uric Acid Calcium Phosphorus Magnesium AST ALT Total Creatine Kinase CK-MB (CK-2) Troponin T NT-Pro-B Natriuret Pep Total Protein Albumin Triglycerides HDL Cholesterol Urine WBC (Auto) Urine Creatinine Urine Total Protein Vancomycin Trough 05/10/19 05/10/19 05/10/19 05:00 05:00 05:50 WBC RBC Hgb 10.3 L Hct 33.7 L MCV MCH 27 L MCHC 31 L RDW 17.0 H Lymph % (Auto) [place] % (Auto) Eos % (Auto) Lymph # [place] # Eos # Seg Neutrophils % Seg Neuts % (Manual) Lymphocytes % (Manual) Eosinophils % (Manual) Seg Neutrophils # Lymphocytes # (Manual) Eosinophils # (Manual) PT INR APTT POC ABG pH ABG pH POC ABG pCO2 POC ABG pO2 ABG pO2 ABG HCO3 ABG O2 Saturation ABG Base Excess ABG Hemoglobin Oxyhemoglobin Sodium 147 H Potassium Chloride Carbon Dioxide BUN 70 H Creatinine 2.6 H Glucose 155 H POC Glucose 158 H Uric Acid Calcium 8.2 L Phosphorus Magnesium AST ALT Total Creatine Kinase CK-MB (CK-2) Troponin T NT-Pro-B Natriuret Pep Total Protein 6.1 L Albumin 2.5 L Triglycerides HDL Cholesterol Urine WBC (Auto) Urine Creatinine Urine Total Protein Vancomycin Trough 05/10/19 05/11/19 05/11/19 13:14 07:26 11:40 WBC RBC Hgb Hct MCV MCH MCHC RDW Lymph % (Auto) [place] % (Auto) Eos % (Auto) Lymph # [place] # Eos # Seg Neutrophils % Seg Neuts % (Manual) Lymphocytes % (Manual) Eosinophils % (Manual) Seg Neutrophils # Lymphocytes # (Manual) Eosinophils # (Manual) PT INR APTT POC ABG pH ABG pH POC ABG pCO2 48.0 H POC ABG pO2 58 L ABG pO2 ABG HCO3 ABG O2 Saturation ABG Base Excess ABG Hemoglobin Oxyhemoglobin Sodium 147 H Potassium Chloride 107.2 H Carbon Dioxide BUN 67 H Creatinine 2.6 H Glucose 121 H POC Glucose 159 H Uric Acid Calcium Phosphorus Magnesium AST ALT Total Creatine Kinase CK-MB (CK-2) Troponin T NT-Pro-B Natriuret Pep Total Protein Albumin Triglycerides HDL Cholesterol Urine WBC (Auto) Urine Creatinine Urine Total Protein Vancomycin Trough 05/11/19 05/11/19 05/12/19 18:13 23:46 04:40 WBC RBC Hgb Hct MCV MCH MCHC RDW Lymph % (Auto) [place] % (Auto) Eos % (Auto) Lymph # [place] # Eos # Seg Neutrophils % Seg Neuts % (Manual) Lymphocytes % (Manual) Eosinophils % (Manual) Seg Neutrophils # Lymphocytes # (Manual) Eosinophils # (Manual) PT INR APTT POC ABG pH ABG pH 7.264 L POC ABG pCO2 POC ABG pO2 ABG pO2 66.8 L ABG HCO3 31.0 H ABG O2 Saturation 92.0 L ABG Base Excess ABG Hemoglobin 10.3 L Oxyhemoglobin 90.1 L Sodium Potassium Chloride Carbon Dioxide BUN Creatinine Glucose POC Glucose 120 H 121 H Uric Acid Calcium Phosphorus Magnesium AST ALT Total Creatine Kinase CK-MB (CK-2) Troponin T NT-Pro-B Natriuret Pep Total Protein Albumin Triglycerides HDL Cholesterol Urine WBC (Auto) Urine Creatinine Urine Total Protein Vancomycin Trough 05/12/19 05/12/19 05/12/19 04:45 04:45 11:14 WBC RBC Hgb 10.2 L Hct 32.4 L MCV MCH MCHC 31 L RDW 17.2 H Lymph % (Auto) [place] % (Auto) Eos % (Auto) Lymph # [place] # Eos # Seg Neutrophils % Seg Neuts % (Manual) Lymphocytes % (Manual) Eosinophils % (Manual) Seg Neutrophils # Lymphocytes # (Manual) Eosinophils # (Manual) PT INR APTT POC ABG pH 7.284 L ABG pH POC ABG pCO2 67.8 H POC ABG pO2 ABG pO2 ABG HCO3 ABG O2 Saturation ABG Base Excess ABG Hemoglobin Oxyhemoglobin Sodium Potassium Chloride Carbon Dioxide BUN 63 H Creatinine 2.4 H Glucose 110 H POC Glucose Uric Acid Calcium Phosphorus Magnesium AST ALT Total Creatine Kinase CK-MB (CK-2) Troponin T NT-Pro-B Natriuret Pep Total Protein Albumin Triglycerides HDL Cholesterol Urine WBC (Auto) Urine Creatinine Urine Total Protein Vancomycin Trough 05/12/19 05/12/19 05/13/19 11:44 23:11 04:30 WBC RBC Hgb Hct MCV MCH MCHC RDW Lymph % (Auto) [place] % (Auto) Eos % (Auto) Lymph # [place] # Eos # Seg Neutrophils % Seg Neuts % (Manual) Lymphocytes % (Manual) Eosinophils % (Manual) Seg Neutrophils # Lymphocytes # (Manual) Eosinophils # (Manual) PT INR APTT POC ABG pH ABG pH 7.288 L POC ABG pCO2 POC ABG pO2 ABG pO2 109.7 H ABG HCO3 30.9 H ABG O2 Saturation ABG Base Excess 3.2 H ABG Hemoglobin 9.6 L Oxyhemoglobin Sodium Potassium Chloride Carbon Dioxide BUN Creatinine Glucose POC Glucose 126 H 147 H Uric Acid Calcium Phosphorus Magnesium AST ALT Total Creatine Kinase CK-MB (CK-2) Troponin T NT-Pro-B Natriuret Pep Total Protein Albumin Triglycerides HDL Cholesterol Urine WBC (Auto) Urine Creatinine Urine Total Protein Vancomycin Trough 05/13/19 05/13/19 05/14/19 06:27 11:58 04:00 WBC RBC 3.16 L Hgb 9.3 L Hct 27.9 L MCV MCH MCHC RDW 17.1 H Lymph % (Auto) [place] % (Auto) Eos % (Auto) Lymph # [place] # Eos # Seg Neutrophils % Seg Neuts % (Manual) Lymphocytes % (Manual) Eosinophils % (Manual) Seg Neutrophils # Lymphocytes # (Manual) Eosinophils # (Manual) PT INR APTT POC ABG pH ABG pH POC ABG pCO2 POC ABG pO2 ABG pO2 ABG HCO3 ABG O2 Saturation ABG Base Excess ABG Hemoglobin Oxyhemoglobin Sodium Potassium Chloride Carbon Dioxide BUN Creatinine Glucose POC Glucose 113 H 130 H Uric Acid Calcium Phosphorus Magnesium AST ALT Total Creatine Kinase CK-MB (CK-2) Troponin T NT-Pro-B Natriuret Pep Total Protein Albumin Triglycerides HDL Cholesterol Urine WBC (Auto) Urine Creatinine Urine Total Protein Vancomycin Trough 05/14/19 05/14/19 05/14/19 04:00 04:34 05:32 WBC RBC Hgb Hct MCV MCH MCHC RDW Lymph % (Auto) [place] % (Auto) Eos % (Auto) Lymph # [place] # Eos # Seg Neutrophils % Seg Neuts % (Manual) Lymphocytes % (Manual) Eosinophils % (Manual) Seg Neutrophils # Lymphocytes # (Manual) Eosinophils # (Manual) PT INR APTT POC ABG pH 7.328 L ABG pH POC ABG pCO2 61.7 H POC ABG pO2 ABG pO2 ABG HCO3 ABG O2 Saturation ABG Base Excess ABG Hemoglobin Oxyhemoglobin Sodium 135 L D Potassium Chloride Carbon Dioxide BUN 57 H Creatinine 2.2 H Glucose 115 H POC Glucose 115 H Uric Acid Calcium 8.1 L Phosphorus Magnesium AST ALT Total Creatine Kinase CK-MB (CK-2) Troponin T NT-Pro-B Natriuret Pep Total Protein Albumin Triglycerides HDL Cholesterol Urine WBC (Auto) Urine Creatinine Urine Total Protein Vancomycin Trough 05/14/19 05/15/19 05/15/19 12:11 05:10 05:24 WBC RBC Hgb Hct MCV MCH MCHC RDW Lymph % (Auto) [place] % (Auto) Eos % (Auto) Lymph # [place] # Eos # Seg Neutrophils % Seg Neuts % (Manual) Lymphocytes % (Manual) Eosinophils % (Manual) Seg Neutrophils # Lymphocytes # (Manual) Eosinophils # (Manual) PT INR APTT POC ABG pH ABG pH 7.342 L POC ABG pCO2 POC ABG pO2 ABG pO2 79.1 L ABG HCO3 28.2 H ABG O2 Saturation ABG Base Excess ABG Hemoglobin 7.0 L Oxyhemoglobin 94.4 L Sodium Potassium Chloride Carbon Dioxide BUN Creatinine Glucose POC Glucose 110 H 116 H Uric Acid Calcium Phosphorus Magnesium AST ALT Total Creatine Kinase CK-MB (CK-2) Troponin T NT-Pro-B Natriuret Pep Total Protein Albumin Triglycerides HDL Cholesterol Urine WBC (Auto) Urine Creatinine Urine Total Protein Vancomycin Trough 05/15/19 05/15/19 05/16/19 09:00 18:12 04:50 WBC RBC Hgb Hct MCV MCH MCHC RDW Lymph % (Auto) [place] % (Auto) Eos % (Auto) Lymph # [place] # Eos # Seg Neutrophils % Seg Neuts % (Manual) Lymphocytes % (Manual) Eosinophils % (Manual) Seg Neutrophils # Lymphocytes # (Manual) Eosinophils # (Manual) PT INR APTT POC ABG pH ABG pH 7.250 L POC ABG pCO2 POC ABG pO2 ABG pO2 76.4 L ABG HCO3 ABG O2 Saturation 94.6 L ABG Base Excess -3.1 L ABG Hemoglobin 9.7 L Oxyhemoglobin 92.4 L Sodium Potassium Chloride Carbon Dioxide BUN Creatinine Glucose POC Glucose 110 H Uric Acid Calcium Phosphorus Magnesium AST ALT Total Creatine Kinase CK-MB (CK-2) Troponin T NT-Pro-B Natriuret Pep Total Protein Albumin Triglycerides HDL Cholesterol Urine WBC (Auto) Urine Creatinine Urine Total Protein Vancomycin Trough 20.5 H 05/16/19 05/16/19 05/17/19 05:50 05:50 04:20 WBC RBC 3.36 L 3.44 L Hgb 9.4 L 9.3 L Hct 29.1 L 29.7 L MCV MCH 27 L MCHC 31 L RDW 17.6 H 17.6 H Lymph % (Auto) [place] % (Auto) Eos % (Auto) Lymph # [place] # Eos # Seg Neutrophils % Seg Neuts % (Manual) 77.0 H Lymphocytes % (Manual) 5.0 L Eosinophils % (Manual) 10.0 H Seg Neutrophils # Lymphocytes # (Manual) 0.5 L Eosinophils # (Manual) 0.9 H PT INR APTT POC ABG pH ABG pH POC ABG pCO2 POC ABG pO2 ABG pO2 ABG HCO3 ABG O2 Saturation ABG Base Excess ABG Hemoglobin Oxyhemoglobin Sodium Potassium Chloride Carbon Dioxide BUN 83 H Creatinine 4.4 H D Glucose 118 H POC Glucose Uric Acid Calcium Phosphorus Magnesium AST ALT Total Creatine Kinase CK-MB (CK-2) Troponin T NT-Pro-B Natriuret Pep Total Protein Albumin Triglycerides HDL Cholesterol Urine WBC (Auto) Urine Creatinine Urine Total Protein Vancomycin Trough 05/17/19 05/17/19 05/18/19 04:30 Unknown 01:50 WBC RBC 3.49 L Hgb 9.4 L Hct 30.0 L MCV MCH 27 L MCHC 31 L RDW 17.8 H Lymph % (Auto) 7.9 L [place] % (Auto) 15.4 H Eos % (Auto) 6.3 H Lymph # 0.7 L [place] # 1.4 H Eos # 0.6 H Seg Neutrophils % 70.2 H Seg Neuts % (Manual) Lymphocytes % (Manual) Eosinophils % (Manual) Seg Neutrophils # Lymphocytes # (Manual) Eosinophils # (Manual) PT INR APTT POC ABG pH ABG pH 7.272 L POC ABG pCO2 POC ABG pO2 ABG pO2 75.7 L ABG HCO3 ABG O2 Saturation 93.8 L ABG Base Excess -3.0 L ABG Hemoglobin 7.8 L Oxyhemoglobin 91.6 L Sodium Potassium 5.2 H Chloride Carbon Dioxide BUN 96 H Creatinine 5.7 H Glucose 112 H POC Glucose Uric Acid Calcium Phosphorus Magnesium AST ALT Total Creatine Kinase CK-MB (CK-2) Troponin T NT-Pro-B Natriuret Pep Total Protein Albumin Triglycerides 173 H HDL Cholesterol Urine WBC (Auto) Urine Creatinine Urine Total Protein Vancomycin Trough 05/18/19 05/18/19 05/18/19 01:50 04:41 05:24 WBC RBC Hgb Hct MCV MCH MCHC RDW Lymph % (Auto) [place] % (Auto) Eos % (Auto) Lymph # [place] # Eos # Seg Neutrophils % Seg Neuts % (Manual) Lymphocytes % (Manual) Eosinophils % (Manual) Seg Neutrophils # Lymphocytes # (Manual) Eosinophils # (Manual) PT INR APTT POC ABG pH 7.260 L ABG pH POC ABG pCO2 54.9 H POC ABG pO2 ABG pO2 ABG HCO3 ABG O2 Saturation ABG Base Excess ABG Hemoglobin Oxyhemoglobin Sodium Potassium 5.6 H Chloride Carbon Dioxide BUN 104 H Creatinine 6.6 H Glucose 107 H POC Glucose 106 H Uric Acid Calcium Phosphorus Magnesium AST ALT Total Creatine Kinase CK-MB (CK-2) Troponin T NT-Pro-B Natriuret Pep Total Protein Albumin Triglycerides HDL Cholesterol Urine WBC (Auto) Urine Creatinine Urine Total Protein Vancomycin Trough
[2019-05-18] MEDS: CEFEPIME/NS 2 GM/100 ML 2 GM/100 ML BAG IV SCH (11:48)
[2019-05-18] MEDS: SODIUM BICARBONATE 150 MEQ in DEXTROSE 5% IN WATER 1,000 ML IV SCH (11:48)
--- NOTE | 2019-05-18 13:22 | Progress Note ---
Assessment and Plan 34 y/o male with acute hypoxic, hypercapnic respiratory failure currently ventilated and sedated, now with persistent fevers and seizure. 1. Neuro: EEG shows no seizures. 2. Pulm: With worsening renal function, O2 requirements increasing. Will increase PEEP back to 18. Once FiO2 down to the 40's will start to wean again. 3. Renal: Cr improved to less than 3.0, making urine. Hold diuresis. Stop D5 as patient is tolerating tube feeds 4. Fever: Resolved now with changes in abx as per ID. 5. Day number of 15 of intubation. 6. Follow up renal and vascular recs. CCT 31 minutes. Subjective Date of service: 05/18/19 Principal diagnosis: HF; acute hypoxemic resp failure, SIRS, CARLA Interval history: No acute events. Unfortunately, renal function is worsening. Appears to need HD. Reviewed renal notes. CXR is worse and O2 requirement did increase in the last 24 hours. Objective Vital Signs - 12hr 05/18/19 05/18/19 05/18/19 01:30 01:45 02:00 Temperature Pulse Rate 89 86 86 Pulse Rate [ From Monitor] Respiratory 26 H 24 25 H Rate Blood Pressure 108/39 99/39 103/41 O2 Sat by Pulse 92 93 93 Oximetry 05/18/19 05/18/19 05/18/19 02:15 02:30 02:45 Temperature Pulse Rate 85 85 85 Pulse Rate [ From Monitor] Respiratory 26 H 26 H 24 Rate Blood Pressure 100/40 101/38 99/40 O2 Sat by Pulse 93 93 93 Oximetry 05/18/19 05/18/19 05/18/19 03:00 03:06 03:15 Temperature 100.3 F H Pulse Rate 84 83 Pulse Rate [ From Monitor] Respiratory 25 H 23 Rate Blood Pressure 101/41 99/39 O2 Sat by Pulse 93 93 Oximetry 05/18/19 05/18/19 05/18/19 03:30 03:45 04:00 Temperature Pulse Rate 85 84 85 Pulse Rate [ 85 From Monitor] Respiratory 24 22 24 Rate Blood Pressure 101/42 103/39 104/42 O2 Sat by Pulse 93 94 94 Oximetry 05/18/19 05/18/19 05/18/19 04:15 04:30 04:32 Temperature Pulse Rate 88 92 H 92 H Pulse Rate [ From Monitor] Respiratory 23 25 H Rate Blood Pressure 111/49 109/51 111/49 O2 Sat by Pulse 93 93 92 Oximetry 05/18/19 05/18/19 05/18/19 04:45 05:00 05:15 Temperature Pulse Rate 92 H 90 91 H Pulse Rate [ From Monitor] Respiratory 26 H 25 H 26 H Rate Blood Pressure 111/47 111/49 115/53 O2 Sat by Pulse 92 93 94 Oximetry 05/18/19 05/18/19 05/18/19 05:30 05:45 06:00 Temperature Pulse Rate 89 86 84 Pulse Rate [ From Monitor] Respiratory 25 H 25 H 26 H Rate Blood Pressure 111/43 106/45 105/47 O2 Sat by Pulse 93 94 92 Oximetry 05/18/19 05/18/19 05/18/19 06:15 06:30 06:45 Temperature Pulse Rate 85 85 85 Pulse Rate [ From Monitor] Respiratory 25 H 26 H 27 H Rate Blood Pressure 104/47 109/47 104/47 O2 Sat by Pulse 93 93 93 Oximetry 05/18/19 05/18/19 05/18/19 07:00 07:15 07:30 Temperature Pulse Rate 89 93 H 94 H Pulse Rate [ From Monitor] Respiratory 25 H 25 H 26 H Rate Blood Pressure 124/57 100/33 108/43 O2 Sat by Pulse 92 91 91 Oximetry 05/18/19 05/18/19 05/18/19 07:45 07:51 08:00 Temperature 99.9 F H Pulse Rate 92 H 93 H 93 H Pulse Rate [ From Monitor] Respiratory 25 H 26 H Rate Blood Pressure 105/42 105/42 109/41 O2 Sat by Pulse 92 92 92 Oximetry 05/18/19 05/18/19 05/18/19 08:15 08:30 08:45 Temperature Pulse Rate 88 86 84 Pulse Rate [ From Monitor] Respiratory 24 26 H 26 H Rate Blood Pressure 105/43 108/42 113/46 O2 Sat by Pulse 93 93 93 Oximetry 05/18/19 05/18/19 05/18/19 09:00 09:15 09:30 Temperature Pulse Rate 85 90 96 H Pulse Rate [ From Monitor] Respiratory 28 H 26 H 28 H Rate Blood Pressure 109/47 122/61 111/49 O2 Sat by Pulse 93 92 92 Oximetry 05/18/19 05/18/19 05/18/19 09:45 10:00 10:15 Temperature Pulse Rate 102 H 104 H 98 H Pulse Rate [ From Monitor] Respiratory 19 22 26 H Rate Blood Pressure 132/69 136/68 114/40 O2 Sat by Pulse 93 91 91 Oximetry 05/18/19 12:26 Temperature Pulse Rate 98 H Pulse Rate [ From Monitor] Respiratory Rate Blood Pressure 114/46 O2 Sat by Pulse 89 Oximetry Constitutional: other (morbidly obese male, sedated on vent) Eyes: non-icteric ENT: oropharynx moist Neck: other (extremely large in circumference) Effort: normal Ascultation: Bilateral: diminished breath sounds (secondary to body habitus) Cardiovascular: regular rate and rhythm (no mrg) Gastrointestinal: normoactive bowel sounds, non-tender, other (obese) Integumentary: other (L hand is wrapped) Extremities: no cyanosis, pink and warm, other (1+ generalized edema) Neurologic: unable to assess Psychiatric: other (unable to assess) CBC and BMP: 05/18/19 01:50 05/18/19 01:50 ABG, PT/INR, D-dimer: ABG POC ABG pH 7.260 (7.35-7.45) L 05/18/19 04:41 ABG pH 7.272 pH Units (7.350-7.450) L 05/17/19 04:30 POC ABG pCO2 54.9 (35-45) H 05/18/19 04:41 ABG pCO2 52.8 mm Hg 05/17/19 04:30 POC ABG pO2 80 (80-105) 05/18/19 04:41 ABG pO2 75.7 mm Hg (80.0-90.0) L 05/17/19 04:30 POC ABG HCO3 24.6 (22-26 mml/L) 05/18/19 04:41 POC ABG Total CO2 26 (23-27mmol/L) 05/18/19 04:41 POC ABG O2 Sat 93 05/18/19 04:41 ABG O2 Saturation 93.8 % (95.0-99.0) L 05/17/19 04:30 PT/INR, D-dimer PT 15.4 Sec. (12.2-14.9) H 05/01/19 Unknown INR 1.23 (0.87-1.13) H 05/01/19 Unknown Abnormal lab findings: Abnormal Labs 05/01/19 05/01/19 05/01/19 17:50 19:26 22:36 WBC RBC Hgb Hct MCV MCH MCHC RDW Lymph % (Auto) [place] % (Auto) Eos % (Auto) Lymph # [place] # Eos # Seg Neutrophils % Seg Neuts % (Manual) Lymphocytes % (Manual) Eosinophils % (Manual) Seg Neutrophils # Lymphocytes # (Manual) Eosinophils # (Manual) PT INR APTT POC ABG pH 7.272 L 7.331 L ABG pH POC ABG pCO2 52.8 H POC ABG pO2 ABG pO2 ABG HCO3 ABG O2 Saturation ABG Base Excess ABG Hemoglobin Oxyhemoglobin Sodium 136 L Potassium 6.5 H* Chloride 97.2 L Carbon Dioxide BUN 60 H Creatinine Glucose 113 H POC Glucose Uric Acid Calcium Phosphorus Magnesium 2.40 H AST 139 H ALT 154 H Total Creatine Kinase CK-MB (CK-2) Troponin T NT-Pro-B Natriuret Pep Total Protein Albumin 3.8 L Triglycerides HDL Cholesterol Urine WBC (Auto) Urine Creatinine Urine Total Protein Vancomycin Trough 05/01/19 05/01/19 05/01/19 Unknown Unknown Unknown WBC 16.1 H RBC Hgb Hct MCV MCH MCHC RDW 17.2 H Lymph % (Auto) [place] % (Auto) 9.6 H Eos % (Auto) Lymph # [place] # 1.5 H Eos # Seg Neutrophils % 73.0 H Seg Neuts % (Manual) Lymphocytes % (Manual) Eosinophils % (Manual) Seg Neutrophils # 11.7 H Lymphocytes # (Manual) Eosinophils # (Manual) PT 15.4 H INR 1.23 H APTT 22.7 L POC ABG pH ABG pH POC ABG pCO2 POC ABG pO2 ABG pO2 ABG HCO3 ABG O2 Saturation ABG Base Excess ABG Hemoglobin Oxyhemoglobin Sodium Potassium Chloride Carbon Dioxide BUN Creatinine Glucose POC Glucose Uric Acid Calcium Phosphorus Magnesium AST ALT Total Creatine Kinase CK-MB (CK-2) Troponin T NT-Pro-B Natriuret Pep 6831 H Total Protein Albumin Triglycerides HDL Cholesterol Urine WBC (Auto) Urine Creatinine Urine Total Protein Vancomycin Trough 05/01/19 05/02/19 05/02/19 Unknown 00:06 00:06 WBC RBC Hgb Hct MCV MCH MCHC RDW Lymph % (Auto) [place] % (Auto) Eos % (Auto) Lymph # [place] # Eos # Seg Neutrophils % Seg Neuts % (Manual) Lymphocytes % (Manual) Eosinophils % (Manual) Seg Neutrophils # Lymphocytes # (Manual) Eosinophils # (Manual) PT INR APTT POC ABG pH ABG pH POC ABG pCO2 POC ABG pO2 ABG pO2 ABG HCO3 ABG O2 Saturation ABG Base Excess ABG Hemoglobin Oxyhemoglobin Sodium Potassium Chloride Carbon Dioxide BUN Creatinine Glucose POC Glucose Uric Acid Calcium Phosphorus 4.90 H Magnesium AST ALT Total Creatine Kinase 226 H CK-MB (CK-2) 5.7 H Troponin T 0.044 H NT-Pro-B Natriuret Pep Total Protein Albumin Triglycerides 182 H HDL Cholesterol 18 L Urine WBC (Auto) Urine Creatinine Urine Total Protein Vancomycin Trough 05/02/19 05/02/19 05/02/19 02:08 04:40 04:41 WBC 17.6 H RBC Hgb Hct MCV MCH 27 L MCHC RDW 17.4 H Lymph % (Auto) 10.2 L [place] % (Auto) 11.0 H Eos % (Auto) Lymph # [place] # 1.9 H Eos # Seg Neutrophils % 78.0 H Seg Neuts % (Manual) Lymphocytes % (Manual) Eosinophils % (Manual) Seg Neutrophils # 13.8 H Lymphocytes # (Manual) Eosinophils # (Manual) PT INR APTT POC ABG pH ABG pH POC ABG pCO2 46.8 H POC ABG pO2 63 L ABG pO2 ABG HCO3 ABG O2 Saturation ABG Base Excess ABG Hemoglobin Oxyhemoglobin Sodium Potassium Chloride 96.3 L Carbon Dioxide BUN 63 H Creatinine 1.7 H Glucose POC Glucose Uric Acid Calcium Phosphorus Magnesium AST ALT Total Creatine Kinase CK-MB (CK-2) Troponin T NT-Pro-B Natriuret Pep Total Protein Albumin Triglycerides HDL Cholesterol Urine WBC (Auto) Urine Creatinine Urine Total Protein Vancomycin Trough 05/02/19 05/02/19 05/02/19 04:41 04:41 16:05 WBC RBC Hgb Hct MCV MCH MCHC RDW Lymph % (Auto) [place] % (Auto) Eos % (Auto) Lymph # [place] # Eos # Seg Neutrophils % Seg Neuts % (Manual) Lymphocytes % (Manual) Eosinophils % (Manual) Seg Neutrophils # Lymphocytes # (Manual) Eosinophils # (Manual) PT INR APTT POC ABG pH ABG pH POC ABG pCO2 POC ABG pO2 ABG pO2 66.6 L ABG HCO3 31.9 H ABG O2 Saturation 92.5 L ABG Base Excess 5.8 H ABG Hemoglobin 13.3 L Oxyhemoglobin 90.6 L Sodium Potassium Chloride 97.2 L Carbon Dioxide BUN 61 H Creatinine 1.8 H Glucose POC Glucose Uric Acid Calcium Phosphorus Magnesium AST ALT Total Creatine Kinase CK-MB (CK-2) 5.2 H Troponin T 0.067 H D NT-Pro-B Natriuret Pep Total Protein Albumin Triglycerides HDL Cholesterol Urine WBC (Auto) Urine Creatinine Urine Total Protein Vancomycin Trough 05/02/19 05/03/19 05/03/19 20:39 04:35 05:05 WBC 11.8 H RBC Hgb Hct MCV MCH 27 L MCHC 31 L RDW 17.2 H Lymph % (Auto) [place] % (Auto) Eos % (Auto) Lymph # [place] # Eos # Seg Neutrophils % Seg Neuts % (Manual) Lymphocytes % (Manual) Eosinophils % (Manual) Seg Neutrophils # Lymphocytes # (Manual) Eosinophils # (Manual) PT INR APTT POC ABG pH ABG pH POC ABG pCO2 53.6 H 54.0 H POC ABG pO2 55 L 63 L ABG pO2 ABG HCO3 ABG O2 Saturation ABG Base Excess ABG Hemoglobin Oxyhemoglobin Sodium Potassium Chloride Carbon Dioxide BUN Creatinine Glucose POC Glucose Uric Acid Calcium Phosphorus Magnesium AST ALT Total Creatine Kinase CK-MB (CK-2) Troponin T NT-Pro-B Natriuret Pep Total Protein Albumin Triglycerides HDL Cholesterol Urine WBC (Auto) Urine Creatinine Urine Total Protein Vancomycin Trough 05/03/19 05/03/19 05/03/19 05:05 10:55 16:48 WBC RBC Hgb Hct MCV MCH MCHC RDW Lymph % (Auto) [place] % (Auto) Eos % (Auto) Lymph # [place] # Eos # Seg Neutrophils % Seg Neuts % (Manual) Lymphocytes % (Manual) Eosinophils % (Manual) Seg Neutrophils # Lymphocytes # (Manual) Eosinophils # (Manual) PT INR APTT POC ABG pH 7.604 H ABG pH POC ABG pCO2 POC ABG pO2 58 L ABG pO2 ABG HCO3 ABG O2 Saturation ABG Base Excess ABG Hemoglobin Oxyhemoglobin Sodium Potassium Chloride Carbon Dioxide BUN 52 H Creatinine 1.9 H Glucose 103 H POC Glucose Uric Acid Calcium Phosphorus Magnesium AST ALT Total Creatine Kinase CK-MB (CK-2) Troponin T NT-Pro-B Natriuret Pep Total Protein Albumin Triglycerides HDL Cholesterol Urine WBC (Auto) 33.0 H Urine Creatinine Urine Total Protein Vancomycin Trough 05/04/19 05/04/19 05/04/19 04:49 06:50 06:50 WBC 16.0 H RBC Hgb Hct MCV MCH 27 L MCHC 31 L RDW 17.8 H Lymph % (Auto) [place] % (Auto) Eos % (Auto) Lymph # [place] # Eos # Seg Neutrophils % Seg Neuts % (Manual) Lymphocytes % (Manual) Eosinophils % (Manual) Seg Neutrophils # Lymphocytes # (Manual) Eosinophils # (Manual) PT INR APTT POC ABG pH 7.273 L ABG pH POC ABG pCO2 POC ABG pO2 ABG pO2 ABG HCO3 ABG O2 Saturation ABG Base Excess ABG Hemoglobin Oxyhemoglobin Sodium 148 H Potassium 5.5 H Chloride Carbon Dioxide BUN 53 H Creatinine 3.3 H D Glucose 106 H POC Glucose Uric Acid Calcium 8.3 L Phosphorus Magnesium AST ALT Total Creatine Kinase CK-MB (CK-2) Troponin T NT-Pro-B Natriuret Pep Total Protein Albumin Triglycerides HDL Cholesterol Urine WBC (Auto) Urine Creatinine Urine Total Protein Vancomycin Trough 05/05/19 05/05/19 05/05/19 00:05 04:30 05:00 WBC RBC Hgb Hct MCV MCH MCHC RDW Lymph % (Auto) [place] % (Auto) Eos % (Auto) Lymph # [place] # Eos # Seg Neutrophils % Seg Neuts % (Manual) Lymphocytes % (Manual) Eosinophils % (Manual) Seg Neutrophils # Lymphocytes # (Manual) Eosinophils # (Manual) PT INR APTT POC ABG pH 7.225 L ABG pH POC ABG pCO2 > 70 H POC ABG pO2 ABG pO2 ABG HCO3 ABG O2 Saturation ABG Base Excess ABG Hemoglobin Oxyhemoglobin Sodium 151 H Potassium 5.1 H Chloride Carbon Dioxide BUN 64 H Creatinine 3.5 H Glucose 117 H POC Glucose 141 H Uric Acid Calcium 7.5 L Phosphorus Magnesium AST 93 H ALT 65 H Total Creatine Kinase CK-MB (CK-2) Troponin T NT-Pro-B Natriuret Pep Total Protein Albumin 2.9 L Triglycerides HDL Cholesterol Urine WBC (Auto) Urine Creatinine Urine Total Protein Vancomycin Trough 05/05/19 05/05/19 05/05/19 05:00 12:02 17:46 WBC 12.0 H RBC Hgb 11.3 L Hct MCV MCH 27 L MCHC 30 L RDW 18.4 H Lymph % (Auto) 7.9 L [place] % (Auto) 10.2 H Eos % (Auto) Lymph # 1.0 L [place] # 1.2 H Eos # Seg Neutrophils % 80.8 H Seg Neuts % (Manual) Lymphocytes % (Manual) Eosinophils % (Manual) Seg Neutrophils # 9.7 H Lymphocytes # (Manual) Eosinophils # (Manual) PT INR APTT POC ABG pH ABG pH POC ABG pCO2 POC ABG pO2 ABG pO2 ABG HCO3 ABG O2 Saturation ABG Base Excess ABG Hemoglobin Oxyhemoglobin Sodium Potassium Chloride Carbon Dioxide BUN Creatinine Glucose POC Glucose 125 H 112 H Uric Acid Calcium Phosphorus Magnesium AST ALT Total Creatine Kinase CK-MB (CK-2) Troponin T NT-Pro-B Natriuret Pep Total Protein Albumin Triglycerides HDL Cholesterol Urine WBC (Auto) Urine Creatinine Urine Total Protein Vancomycin Trough 05/05/19 05/06/19 05/06/19 23:42 03:58 04:45 WBC 11.4 H RBC Hgb 10.7 L Hct 34.2 L MCV MCH 27 L MCHC 31 L RDW 16.9 H Lymph % (Auto) [place] % (Auto) Eos % (Auto) Lymph # [place] # Eos # Seg Neutrophils % Seg Neuts % (Manual) Lymphocytes % (Manual) Eosinophils % (Manual) Seg Neutrophils # Lymphocytes # (Manual) Eosinophils # (Manual) PT INR APTT POC ABG pH ABG pH POC ABG pCO2 62.4 H POC ABG pO2 111 H ABG pO2 ABG HCO3 ABG O2 Saturation ABG Base Excess ABG Hemoglobin Oxyhemoglobin Sodium Potassium Chloride Carbon Dioxide BUN Creatinine Glucose POC Glucose 128 H Uric Acid Calcium Phosphorus Magnesium AST ALT Total Creatine Kinase CK-MB (CK-2) Troponin T NT-Pro-B Natriuret Pep Total Protein Albumin Triglycerides HDL Cholesterol Urine WBC (Auto) Urine Creatinine Urine Total Protein Vancomycin Trough 05/06/19 05/06/19 05/06/19 04:45 05:33 12:30 WBC RBC Hgb Hct MCV MCH MCHC RDW Lymph % (Auto) [place] % (Auto) Eos % (Auto) Lymph # [place] # Eos # Seg Neutrophils % Seg Neuts % (Manual) Lymphocytes % (Manual) Eosinophils % (Manual) Seg Neutrophils # Lymphocytes # (Manual) Eosinophils # (Manual) PT INR APTT POC ABG pH ABG pH POC ABG pCO2 POC ABG pO2 ABG pO2 ABG HCO3 ABG O2 Saturation ABG Base Excess ABG Hemoglobin Oxyhemoglobin Sodium 149 H Potassium Chloride Carbon Dioxide 31 H BUN 67 H Creatinine 3.2 H Glucose 125 H POC Glucose 117 H 116 H Uric Acid Calcium 7.5 L Phosphorus Magnesium AST ALT Total Creatine Kinase CK-MB (CK-2) Troponin T NT-Pro-B Natriuret Pep Total Protein Albumin Triglycerides HDL Cholesterol Urine WBC (Auto) Urine Creatinine Urine Total Protein Vancomycin Trough 05/06/19 05/06/19 05/07/19 18:34 23:16 05:22 WBC RBC Hgb Hct MCV MCH MCHC RDW Lymph % (Auto) [place] % (Auto) Eos % (Auto) Lymph # [place] # Eos # Seg Neutrophils % Seg Neuts % (Manual) Lymphocytes % (Manual) Eosinophils % (Manual) Seg Neutrophils # Lymphocytes # (Manual) Eosinophils # (Manual) PT INR APTT POC ABG pH ABG pH POC ABG pCO2 POC ABG pO2 ABG pO2 ABG HCO3 ABG O2 Saturation ABG Base Excess ABG Hemoglobin Oxyhemoglobin Sodium Potassium Chloride Carbon Dioxide BUN Creatinine Glucose POC Glucose 128 H 143 H 166 H Uric Acid Calcium Phosphorus Magnesium AST ALT Total Creatine Kinase CK-MB (CK-2) Troponin T NT-Pro-B Natriuret Pep Total Protein Albumin Triglycerides HDL Cholesterol Urine WBC (Auto) Urine Creatinine Urine Total Protein Vancomycin Trough 05/07/19 05/07/19 05/07/19 06:33 07:03 09:35 WBC RBC Hgb Hct MCV MCH MCHC RDW Lymph % (Auto) [place] % (Auto) Eos % (Auto) Lymph # [place] # Eos # Seg Neutrophils % Seg Neuts % (Manual) Lymphocytes % (Manual) Eosinophils % (Manual) Seg Neutrophils # Lymphocytes # (Manual) Eosinophils # (Manual) PT INR APTT POC ABG pH 7.263 L 7.288 L ABG pH POC ABG pCO2 POC ABG pO2 51 L 56 L ABG pO2 ABG HCO3 ABG O2 Saturation ABG Base Excess ABG Hemoglobin Oxyhemoglobin Sodium Potassium Chloride Carbon Dioxide BUN 76 H Creatinine 3.2 H Glucose 147 H POC Glucose Uric Acid Calcium 7.9 L Phosphorus Magnesium AST ALT Total Creatine Kinase CK-MB (CK-2) Troponin T NT-Pro-B Natriuret Pep Total Protein Albumin Triglycerides HDL Cholesterol Urine WBC (Auto) Urine Creatinine Urine Total Protein Vancomycin Trough 05/07/19 05/07/19 05/07/19 09:35 12:17 13:45 WBC 13.4 H RBC Hgb 11.6 L Hct MCV MCH 27 L MCHC 31 L RDW 17.5 H Lymph % (Auto) [place] % (Auto) Eos % (Auto) Lymph # [place] # Eos # Seg Neutrophils % Seg Neuts % (Manual) Lymphocytes % (Manual) Eosinophils % (Manual) Seg Neutrophils # Lymphocytes # (Manual) Eosinophils # (Manual) PT INR APTT POC ABG pH ABG pH POC ABG pCO2 POC ABG pO2 ABG pO2 ABG HCO3 ABG O2 Saturation ABG Base Excess ABG Hemoglobin Oxyhemoglobin Sodium Potassium Chloride Carbon Dioxide BUN Creatinine Glucose POC Glucose 130 H Uric Acid 18.0 H Calcium Phosphorus Magnesium AST ALT Total Creatine Kinase CK-MB (CK-2) Troponin T NT-Pro-B Natriuret Pep Total Protein Albumin Triglycerides HDL Cholesterol Urine WBC (Auto) Urine Creatinine Urine Total Protein Vancomycin Trough 05/07/19 05/07/19 05/08/19 17:39 22:40 05:06 WBC RBC Hgb Hct MCV MCH MCHC RDW Lymph % (Auto) [place] % (Auto) Eos % (Auto) Lymph # [place] # Eos # Seg Neutrophils % Seg Neuts % (Manual) Lymphocytes % (Manual) Eosinophils % (Manual) Seg Neutrophils # Lymphocytes # (Manual) Eosinophils # (Manual) PT INR APTT POC ABG pH ABG pH POC ABG pCO2 POC ABG pO2 ABG pO2 ABG HCO3 ABG O2 Saturation ABG Base Excess ABG Hemoglobin Oxyhemoglobin Sodium Potassium Chloride Carbon Dioxide BUN Creatinine Glucose POC Glucose 116 H 148 H Uric Acid Calcium Phosphorus Magnesium AST ALT Total Creatine Kinase CK-MB (CK-2) Troponin T NT-Pro-B Natriuret Pep Total Protein Albumin Triglycerides HDL Cholesterol Urine WBC (Auto) Urine Creatinine 292.8 H Urine Total Protein 269 H Vancomycin Trough 05/08/19 05/08/19 05/08/19 05:32 11:28 13:48 WBC RBC Hgb Hct MCV MCH MCHC RDW Lymph % (Auto) [place] % (Auto) Eos % (Auto) Lymph # [place] # Eos # Seg Neutrophils % Seg Neuts % (Manual) Lymphocytes % (Manual) Eosinophils % (Manual) Seg Neutrophils # Lymphocytes # (Manual) Eosinophils # (Manual) PT INR APTT POC ABG pH ABG pH POC ABG pCO2 45.4 H POC ABG pO2 64 L ABG pO2 ABG HCO3 ABG O2 Saturation ABG Base Excess ABG Hemoglobin Oxyhemoglobin Sodium Potassium Chloride Carbon Dioxide BUN 73 H Creatinine 2.7 H Glucose 127 H POC Glucose 107 H Uric Acid Calcium 7.6 L Phosphorus Magnesium AST ALT Total Creatine Kinase CK-MB (CK-2) Troponin T NT-Pro-B Natriuret Pep Total Protein Albumin Triglycerides HDL Cholesterol Urine WBC (Auto) Urine Creatinine Urine Total Protein Vancomycin Trough 05/08/19 05/09/19 05/09/19 17:48 04:50 04:53 WBC RBC 3.07 L Hgb 8.5 L D Hct 29.3 L D MCV 96 H MCH MCHC 29 L RDW 18.1 H Lymph % (Auto) [place] % (Auto) Eos % (Auto) Lymph # [place] # Eos # Seg Neutrophils % Seg Neuts % (Manual) Lymphocytes % (Manual) Eosinophils % (Manual) Seg Neutrophils # Lymphocytes # (Manual) Eosinophils # (Manual) PT INR APTT POC ABG pH 7.316 L ABG pH POC ABG pCO2 66.0 H POC ABG pO2 69 L ABG pO2 ABG HCO3 ABG O2 Saturation ABG Base Excess ABG Hemoglobin Oxyhemoglobin Sodium Potassium Chloride Carbon Dioxide BUN Creatinine Glucose POC Glucose 155 H Uric Acid Calcium Phosphorus Magnesium AST ALT Total Creatine Kinase CK-MB (CK-2) Troponin T NT-Pro-B Natriuret Pep Total Protein Albumin Triglycerides HDL Cholesterol Urine WBC (Auto) Urine Creatinine Urine Total Protein Vancomycin Trough 05/09/19 05/09/19 05/09/19 05:46 07:24 12:10 WBC RBC Hgb Hct MCV MCH MCHC RDW Lymph % (Auto) [place] % (Auto) Eos % (Auto) Lymph # [place] # Eos # Seg Neutrophils % Seg Neuts % (Manual) Lymphocytes % (Manual) Eosinophils % (Manual) Seg Neutrophils # Lymphocytes # (Manual) Eosinophils # (Manual) PT INR APTT POC ABG pH ABG pH POC ABG pCO2 POC ABG pO2 ABG pO2 ABG HCO3 ABG O2 Saturation ABG Base Excess ABG Hemoglobin Oxyhemoglobin Sodium Potassium Chloride Carbon Dioxide BUN 73 H Creatinine 2.4 H Glucose 153 H POC Glucose 123 H 148 H Uric Acid Calcium 8.2 L Phosphorus Magnesium AST 45 H ALT Total Creatine Kinase CK-MB (CK-2) Troponin T NT-Pro-B Natriuret Pep Total Protein 6.0 L Albumin 1.9 L Triglycerides HDL Cholesterol Urine WBC (Auto) Urine Creatinine Urine Total Protein Vancomycin Trough 05/09/19 05/09/19 05/10/19 18:23 23:26 04:52 WBC RBC Hgb Hct MCV MCH MCHC RDW Lymph % (Auto) [place] % (Auto) Eos % (Auto) Lymph # [place] # Eos # Seg Neutrophils % Seg Neuts % (Manual) Lymphocytes % (Manual) Eosinophils % (Manual) Seg Neutrophils # Lymphocytes # (Manual) Eosinophils # (Manual) PT INR APTT POC ABG pH 7.305 L ABG pH POC ABG pCO2 62.6 H POC ABG pO2 ABG pO2 ABG HCO3 ABG O2 Saturation ABG Base Excess ABG Hemoglobin Oxyhemoglobin Sodium Potassium Chloride Carbon Dioxide BUN Creatinine Glucose POC Glucose 147 H 121 H Uric Acid Calcium Phosphorus Magnesium AST ALT Total Creatine Kinase CK-MB (CK-2) Troponin T NT-Pro-B Natriuret Pep Total Protein Albumin Triglycerides HDL Cholesterol Urine WBC (Auto) Urine Creatinine Urine Total Protein Vancomycin Trough 05/10/19 05/10/19 05/10/19 05:00 05:00 05:50 WBC RBC Hgb 10.3 L Hct 33.7 L MCV MCH 27 L MCHC 31 L RDW 17.0 H Lymph % (Auto) [place] % (Auto) Eos % (Auto) Lymph # [place] # Eos # Seg Neutrophils % Seg Neuts % (Manual) Lymphocytes % (Manual) Eosinophils % (Manual) Seg Neutrophils # Lymphocytes # (Manual) Eosinophils # (Manual) PT INR APTT POC ABG pH ABG pH POC ABG pCO2 POC ABG pO2 ABG pO2 ABG HCO3 ABG O2 Saturation ABG Base Excess ABG Hemoglobin Oxyhemoglobin Sodium 147 H Potassium Chloride Carbon Dioxide BUN 70 H Creatinine 2.6 H Glucose 155 H POC Glucose 158 H Uric Acid Calcium 8.2 L Phosphorus Magnesium AST ALT Total Creatine Kinase CK-MB (CK-2) Troponin T NT-Pro-B Natriuret Pep Total Protein 6.1 L Albumin 2.5 L Triglycerides HDL Cholesterol Urine WBC (Auto) Urine Creatinine Urine Total Protein Vancomycin Trough 05/10/19 05/11/19 05/11/19 13:14 07:26 11:40 WBC RBC Hgb Hct MCV MCH MCHC RDW Lymph % (Auto) [place] % (Auto) Eos % (Auto) Lymph # [place] # Eos # Seg Neutrophils % Seg Neuts % (Manual) Lymphocytes % (Manual) Eosinophils % (Manual) Seg Neutrophils # Lymphocytes # (Manual) Eosinophils # (Manual) PT INR APTT POC ABG pH ABG pH POC ABG pCO2 48.0 H POC ABG pO2 58 L ABG pO2 ABG HCO3 ABG O2 Saturation ABG Base Excess ABG Hemoglobin Oxyhemoglobin Sodium 147 H Potassium Chloride 107.2 H Carbon Dioxide BUN 67 H Creatinine 2.6 H Glucose 121 H POC Glucose 159 H Uric Acid Calcium Phosphorus Magnesium AST ALT Total Creatine Kinase CK-MB (CK-2) Troponin T NT-Pro-B Natriuret Pep Total Protein Albumin Triglycerides HDL Cholesterol Urine WBC (Auto) Urine Creatinine Urine Total Protein Vancomycin Trough 05/11/19 05/11/19 05/12/19 18:13 23:46 04:40 WBC RBC Hgb Hct MCV MCH MCHC RDW Lymph % (Auto) [place] % (Auto) Eos % (Auto) Lymph # [place] # Eos # Seg Neutrophils % Seg Neuts % (Manual) Lymphocytes % (Manual) Eosinophils % (Manual) Seg Neutrophils # Lymphocytes # (Manual) Eosinophils # (Manual) PT INR APTT POC ABG pH ABG pH 7.264 L POC ABG pCO2 POC ABG pO2 ABG pO2 66.8 L ABG HCO3 31.0 H ABG O2 Saturation 92.0 L ABG Base Excess ABG Hemoglobin 10.3 L Oxyhemoglobin 90.1 L Sodium Potassium Chloride Carbon Dioxide BUN Creatinine Glucose POC Glucose 120 H 121 H Uric Acid Calcium Phosphorus Magnesium AST ALT Total Creatine Kinase CK-MB (CK-2) Troponin T NT-Pro-B Natriuret Pep Total Protein Albumin Triglycerides HDL Cholesterol Urine WBC (Auto) Urine Creatinine Urine Total Protein Vancomycin Trough 05/12/19 05/12/19 05/12/19 04:45 04:45 11:14 WBC RBC Hgb 10.2 L Hct 32.4 L MCV MCH MCHC 31 L RDW 17.2 H Lymph % (Auto) [place] % (Auto) Eos % (Auto) Lymph # [place] # Eos # Seg Neutrophils % Seg Neuts % (Manual) Lymphocytes % (Manual) Eosinophils % (Manual) Seg Neutrophils # Lymphocytes # (Manual) Eosinophils # (Manual) PT INR APTT POC ABG pH 7.284 L ABG pH POC ABG pCO2 67.8 H POC ABG pO2 ABG pO2 ABG HCO3 ABG O2 Saturation ABG Base Excess ABG Hemoglobin Oxyhemoglobin Sodium Potassium Chloride Carbon Dioxide BUN 63 H Creatinine 2.4 H Glucose 110 H POC Glucose Uric Acid Calcium Phosphorus Magnesium AST ALT Total Creatine Kinase CK-MB (CK-2) Troponin T NT-Pro-B Natriuret Pep Total Protein Albumin Triglycerides HDL Cholesterol Urine WBC (Auto) Urine Creatinine Urine Total Protein Vancomycin Trough 05/12/19 05/12/19 05/13/19 11:44 23:11 04:30 WBC RBC Hgb Hct MCV MCH MCHC RDW Lymph % (Auto) [place] % (Auto) Eos % (Auto) Lymph # [place] # Eos # Seg Neutrophils % Seg Neuts % (Manual) Lymphocytes % (Manual) Eosinophils % (Manual) Seg Neutrophils # Lymphocytes # (Manual) Eosinophils # (Manual) PT INR APTT POC ABG pH ABG pH 7.288 L POC ABG pCO2 POC ABG pO2 ABG pO2 109.7 H ABG HCO3 30.9 H ABG O2 Saturation ABG Base Excess 3.2 H ABG Hemoglobin 9.6 L Oxyhemoglobin Sodium Potassium Chloride Carbon Dioxide BUN Creatinine Glucose POC Glucose 126 H 147 H Uric Acid Calcium Phosphorus Magnesium AST ALT Total Creatine Kinase CK-MB (CK-2) Troponin T NT-Pro-B Natriuret Pep Total Protein Albumin Triglycerides HDL Cholesterol Urine WBC (Auto) Urine Creatinine Urine Total Protein Vancomycin Trough 05/13/19 05/13/19 05/14/19 06:27 11:58 04:00 WBC RBC 3.16 L Hgb 9.3 L Hct 27.9 L MCV MCH MCHC RDW 17.1 H Lymph % (Auto) [place] % (Auto) Eos % (Auto) Lymph # [place] # Eos # Seg Neutrophils % Seg Neuts % (Manual) Lymphocytes % (Manual) Eosinophils % (Manual) Seg Neutrophils # Lymphocytes # (Manual) Eosinophils # (Manual) PT INR APTT POC ABG pH ABG pH POC ABG pCO2 POC ABG pO2 ABG pO2 ABG HCO3 ABG O2 Saturation ABG Base Excess ABG Hemoglobin Oxyhemoglobin Sodium Potassium Chloride Carbon Dioxide BUN Creatinine Glucose POC Glucose 113 H 130 H Uric Acid Calcium Phosphorus Magnesium AST ALT Total Creatine Kinase CK-MB (CK-2) Troponin T NT-Pro-B Natriuret Pep Total Protein Albumin Triglycerides HDL Cholesterol Urine WBC (Auto) Urine Creatinine Urine Total Protein Vancomycin Trough 05/14/19 05/14/19 05/14/19 04:00 04:34 05:32 WBC RBC Hgb Hct MCV MCH MCHC RDW Lymph % (Auto) [place] % (Auto) Eos % (Auto) Lymph # [place] # Eos # Seg Neutrophils % Seg Neuts % (Manual) Lymphocytes % (Manual) Eosinophils % (Manual) Seg Neutrophils # Lymphocytes # (Manual) Eosinophils # (Manual) PT INR APTT POC ABG pH 7.328 L ABG pH POC ABG pCO2 61.7 H POC ABG pO2 ABG pO2 ABG HCO3 ABG O2 Saturation ABG Base Excess ABG Hemoglobin Oxyhemoglobin Sodium 135 L D Potassium Chloride Carbon Dioxide BUN 57 H Creatinine 2.2 H Glucose 115 H POC Glucose 115 H Uric Acid Calcium 8.1 L Phosphorus Magnesium AST ALT Total Creatine Kinase CK-MB (CK-2) Troponin T NT-Pro-B Natriuret Pep Total Protein Albumin Triglycerides HDL Cholesterol Urine WBC (Auto) Urine Creatinine Urine Total Protein Vancomycin Trough 05/14/19 05/15/19 05/15/19 12:11 05:10 05:24 WBC RBC Hgb Hct MCV MCH MCHC RDW Lymph % (Auto) [place] % (Auto) Eos % (Auto) Lymph # [place] # Eos # Seg Neutrophils % Seg Neuts % (Manual) Lymphocytes % (Manual) Eosinophils % (Manual) Seg Neutrophils # Lymphocytes # (Manual) Eosinophils # (Manual) PT INR APTT POC ABG pH ABG pH 7.342 L POC ABG pCO2 POC ABG pO2 ABG pO2 79.1 L ABG HCO3 28.2 H ABG O2 Saturation ABG Base Excess ABG Hemoglobin 7.0 L Oxyhemoglobin 94.4 L Sodium Potassium Chloride Carbon Dioxide BUN Creatinine Glucose POC Glucose 110 H 116 H Uric Acid Calcium Phosphorus Magnesium AST ALT Total Creatine Kinase CK-MB (CK-2) Troponin T NT-Pro-B Natriuret Pep Total Protein Albumin Triglycerides HDL Cholesterol Urine WBC (Auto) Urine Creatinine Urine Total Protein Vancomycin Trough 05/15/19 05/15/19 05/16/19 09:00 18:12 04:50 WBC RBC Hgb Hct MCV MCH MCHC RDW Lymph % (Auto) [place] % (Auto) Eos % (Auto) Lymph # [place] # Eos # Seg Neutrophils % Seg Neuts % (Manual) Lymphocytes % (Manual) Eosinophils % (Manual) Seg Neutrophils # Lymphocytes # (Manual) Eosinophils # (Manual) PT INR APTT POC ABG pH ABG pH 7.250 L POC ABG pCO2 POC ABG pO2 ABG pO2 76.4 L ABG HCO3 ABG O2 Saturation 94.6 L ABG Base Excess -3.1 L ABG Hemoglobin 9.7 L Oxyhemoglobin 92.4 L Sodium Potassium Chloride Carbon Dioxide BUN Creatinine Glucose POC Glucose 110 H Uric Acid Calcium Phosphorus Magnesium AST ALT Total Creatine Kinase CK-MB (CK-2) Troponin T NT-Pro-B Natriuret Pep Total Protein Albumin Triglycerides HDL Cholesterol Urine WBC (Auto) Urine Creatinine Urine Total Protein Vancomycin Trough 20.5 H 05/16/19 05/16/19 05/17/19 05:50 05:50 04:20 WBC RBC 3.36 L 3.44 L Hgb 9.4 L 9.3 L Hct 29.1 L 29.7 L MCV MCH 27 L MCHC 31 L RDW 17.6 H 17.6 H Lymph % (Auto) [place] % (Auto) Eos % (Auto) Lymph # [place] # Eos # Seg Neutrophils % Seg Neuts % (Manual) 77.0 H Lymphocytes % (Manual) 5.0 L Eosinophils % (Manual) 10.0 H Seg Neutrophils # Lymphocytes # (Manual) 0.5 L Eosinophils # (Manual) 0.9 H PT INR APTT POC ABG pH ABG pH POC ABG pCO2 POC ABG pO2 ABG pO2 ABG HCO3 ABG O2 Saturation ABG Base Excess ABG Hemoglobin Oxyhemoglobin Sodium Potassium Chloride Carbon Dioxide BUN 83 H Creatinine 4.4 H D Glucose 118 H POC Glucose Uric Acid Calcium Phosphorus Magnesium AST ALT Total Creatine Kinase CK-MB (CK-2) Troponin T NT-Pro-B Natriuret Pep Total Protein Albumin Triglycerides HDL Cholesterol Urine WBC (Auto) Urine Creatinine Urine Total Protein Vancomycin Trough 05/17/19 05/17/19 05/18/19 04:30 Unknown 01:50 WBC RBC 3.49 L Hgb 9.4 L Hct 30.0 L MCV MCH 27 L MCHC 31 L RDW 17.8 H Lymph % (Auto) 7.9 L [place] % (Auto) 15.4 H Eos % (Auto) 6.3 H Lymph # 0.7 L [place] # 1.4 H Eos # 0.6 H Seg Neutrophils % 70.2 H Seg Neuts % (Manual) Lymphocytes % (Manual) Eosinophils % (Manual) Seg Neutrophils # Lymphocytes # (Manual) Eosinophils # (Manual) PT INR APTT POC ABG pH ABG pH 7.272 L POC ABG pCO2 POC ABG pO2 ABG pO2 75.7 L ABG HCO3 ABG O2 Saturation 93.8 L ABG Base Excess -3.0 L ABG Hemoglobin 7.8 L Oxyhemoglobin 91.6 L Sodium Potassium 5.2 H Chloride Carbon Dioxide BUN 96 H Creatinine 5.7 H Glucose 112 H POC Glucose Uric Acid Calcium Phosphorus Magnesium AST ALT Total Creatine Kinase CK-MB (CK-2) Troponin T NT-Pro-B Natriuret Pep Total Protein Albumin Triglycerides 173 H HDL Cholesterol Urine WBC (Auto) Urine Creatinine Urine Total Protein Vancomycin Trough 05/18/19 05/18/19 05/18/19 01:50 04:41 05:24 WBC RBC Hgb Hct MCV MCH MCHC RDW Lymph % (Auto) [place] % (Auto) Eos % (Auto) Lymph # [place] # Eos # Seg Neutrophils % Seg Neuts % (Manual) Lymphocytes % (Manual) Eosinophils % (Manual) Seg Neutrophils # Lymphocytes # (Manual) Eosinophils # (Manual) PT INR APTT POC ABG pH 7.260 L ABG pH POC ABG pCO2 54.9 H POC ABG pO2 ABG pO2 ABG HCO3 ABG O2 Saturation ABG Base Excess ABG Hemoglobin Oxyhemoglobin Sodium Potassium 5.6 H Chloride Carbon Dioxide BUN 104 H Creatinine 6.6 H Glucose 107 H POC Glucose 106 H Uric Acid Calcium Phosphorus Magnesium AST ALT Total Creatine Kinase CK-MB (CK-2) Troponin T NT-Pro-B Natriuret Pep Total Protein Albumin Triglycerides HDL Cholesterol Urine WBC (Auto) Urine Creatinine Urine Total Protein Vancomycin Trough 05/18/19 11:34 WBC RBC Hgb Hct MCV MCH MCHC RDW Lymph % (Auto) [place] % (Auto) Eos % (Auto) Lymph # [place] # Eos # Seg Neutrophils % Seg Neuts % (Manual) Lymphocytes % (Manual) Eosinophils % (Manual) Seg Neutrophils # Lymphocytes # (Manual) Eosinophils # (Manual) PT INR APTT POC ABG pH ABG pH POC ABG pCO2 POC ABG pO2 ABG pO2 ABG HCO3 ABG O2 Saturation ABG Base Excess ABG Hemoglobin Oxyhemoglobin Sodium Potassium Chloride Carbon Dioxide BUN Creatinine Glucose POC Glucose 152 H Uric Acid Calcium Phosphorus Magnesium AST ALT Total Creatine Kinase CK-MB (CK-2) Troponin T NT-Pro-B Natriuret Pep Total Protein Albumin Triglycerides HDL Cholesterol Urine WBC (Auto) Urine Creatinine Urine Total Protein Vancomycin Trough
[2019-05-18] MEDS ORDERED: DEXTROSE 50% IN WATER (25GM) 50 ML SYRINGE IV ONE (14:00)
[2019-05-18] MEDS ORDERED: INSULIN REGULAR, HUMAN 100 UNITS/1 ML IV ONE (14:00)
--- NOTE | 2019-05-18 20:41 | Progress Note ---
Assessment and Plan 34-year-old man who is morbidly obese with unknown medical problem was brought to the emergency room with complaints of shortness of breath and difficulty sleeping. History is per the chart, nurse reported that his saturation dropped to 28%, heart rate in the 50s, she checked on them, he was cyanotic. Had a cardiac arrest and was subsequently intubated and recieved 2 rounds of epinephrine. - s/p Cardiac arrest Resuscitated cardiology consulted, following - Metabolic encephalopathy with persistent fever On Rocephin coverage for possible meningitis - Acute hypoxic respiratory failure Status post intubation, continue sedation, Wean us tolerated Discussed with Flower Arranger. Thinks pt is weanable - Acute CHF, new onset, probably diastolic Diurese with IV lasix, monitor I/O, daily weights Cardiology following. Added beta-jenny, no TIM inhibitor secondary to renal insufficiency - Acute kidney injury due to ATN - worsening Avoid nephrotoxic substances REnaly dose curren meds Repeat BMP in am Nephrology following - Hyperkalemia Kayexalate Trend - Fever SIRS vs Sepsis Consult ID On empiric antibiotics -SIRS versus Sepsis Continue Zosyn, Vanco, follow culture - DVT prophylaxis with Lovenox - Morbid obesity Full code status. Disposition: Continue to wean off the vent per tab card press operator. Patient has no previous office. Tracheostomy will make it more difficult to be placed inSNF Subjective Date of service: 05/18/19 Principal diagnosis: HF; acute hypoxemic resp failure, SIRS, CARLA Interval history: Remains intubated. On mechanical ventilation for > 96 hours. Abefrile. No overnight event reported to me. Objective - Exam Narrative Exam: Constitutional: Obese. Remains intubated connected to mechanical ventilation >96 hours Head: Normocephalic atraumatic Eyes: Pupils are equal round and reactive to light Nose: No enlarged turbinates, no septal deviation. Mouth: Moist mucous membranes. Neck: Supple no thyromegaly. No bruit. No JVD Heart: Regular rate and rhythm, S1-S2 normal. No rubs murmurs or gallop Lungs: Deminished breath sound bilaterally. no rales or rhonchi Abdomen: Soft, nontender. Bowel sound are present. Extremities: 2 + edema, no cyanosis, no clubbing. Neuro: Intubated and unresponsive Skin: No rashes or hyperpigmented spots Musculoskeletal system: No joint pain or swelling Hematological: No petechia or subcutanous hemorrhages. Immunological: No multiple septic spots on the skin Lymphatic: No generalized lymphadenopathy Psychiatry: Intubated and unresponsive - Constitutional Vitals: Vital Signs - 12hr 05/18/19 05/18/19 05/18/19 08:45 09:00 09:15 Temperature Pulse Rate 84 85 90 Respiratory 26 H 28 H 26 H Rate Blood Pressure 113/46 109/47 122/61 O2 Sat by Pulse 93 93 92 Oximetry 05/18/19 05/18/19 05/18/19 09:30 09:45 10:00 Temperature Pulse Rate 96 H 102 H 104 H Respiratory 28 H 19 22 Rate Blood Pressure 111/49 132/69 136/68 O2 Sat by Pulse 92 93 91 Oximetry 05/18/19 05/18/19 05/18/19 10:15 10:30 10:45 Temperature Pulse Rate 98 H 91 H 89 Respiratory 26 H 27 H 26 H Rate Blood Pressure 114/40 112/42 106/44 O2 Sat by Pulse 91 92 93 Oximetry 05/18/19 05/18/19 05/18/19 11:00 11:15 11:30 Temperature Pulse Rate 89 88 88 Respiratory 28 H 24 27 H Rate Blood Pressure 109/45 108/41 104/43 O2 Sat by Pulse 93 93 93 Oximetry 05/18/19 05/18/19 05/18/19 11:45 12:00 12:15 Temperature 99.1 F Pulse Rate 90 94 H 99 H Respiratory 27 H 24 24 Rate Blood Pressure 114/51 120/57 114/46 O2 Sat by Pulse 94 93 91 Oximetry 05/18/19 05/18/19 05/18/19 12:26 12:30 12:45 Temperature Pulse Rate 98 H 97 H 94 H Respiratory 21 24 Rate Blood Pressure 114/46 111/43 105/39 O2 Sat by Pulse 89 88 87 Oximetry 05/18/19 05/18/19 05/18/19 13:00 13:15 13:30 Temperature Pulse Rate 90 89 87 Respiratory 17 18 23 Rate Blood Pressure 105/40 101/38 102/41 O2 Sat by Pulse 89 90 94 Oximetry 05/18/19 05/18/19 05/18/19 13:45 14:00 14:15 Temperature Pulse Rate 88 88 88 Respiratory 23 21 24 Rate Blood Pressure 100/38 103/40 104/40 O2 Sat by Pulse 90 88 88 Oximetry 05/18/19 05/18/19 05/18/19 14:30 14:45 15:00 Temperature Pulse Rate 95 H 95 H 97 H Respiratory 19 27 H 17 Rate Blood Pressure 118/45 111/39 116/43 O2 Sat by Pulse 87 87 89 Oximetry 05/18/19 05/18/19 05/18/19 15:15 15:30 15:45 Temperature Pulse Rate 95 H 90 89 Respiratory 25 H 19 24 Rate Blood Pressure 111/41 105/37 105/37 O2 Sat by Pulse 90 91 91 Oximetry 05/18/19 05/18/19 05/18/19 16:00 16:15 16:30 Temperature 100 F H Pulse Rate 89 86 87 Respiratory 20 25 H 12 Rate Blood Pressure 102/40 102/40 106/41 O2 Sat by Pulse 92 92 92 Oximetry 05/18/19 05/18/19 05/18/19 16:45 17:00 17:09 Temperature Pulse Rate 103 H 104 H 107 H Respiratory 14 19 Rate Blood Pressure 121/37 128/57 124/63 O2 Sat by Pulse 86 89 90 Oximetry 05/18/19 05/18/19 05/18/19 17:15 17:30 17:45 Temperature Pulse Rate 105 H 106 H 108 H Respiratory 23 19 26 H Rate Blood Pressure 124/63 138/65 135/70 O2 Sat by Pulse 88 91 91 Oximetry 05/18/19 05/18/19 05/18/19 18:00 18:15 18:30 Temperature Pulse Rate 102 H 105 H 104 H Respiratory 21 13 14 Rate Blood Pressure 115/40 115/47 120/52 O2 Sat by Pulse 91 90 89 Oximetry 05/18/19 05/18/19 05/18/19 18:45 19:00 19:15 Temperature Pulse Rate 102 H 101 H 100 H Respiratory 14 15 18 Rate Blood Pressure 118/46 115/45 114/41 O2 Sat by Pulse 89 90 89 Oximetry 05/18/19 05/18/19 05/18/19 19:30 19:45 20:00 Temperature Pulse Rate 98 H 98 H 98 H Respiratory 21 26 H 24 Rate Blood Pressure 113/43 113/41 112/47 O2 Sat by Pulse 90 90 91 Oximetry 05/18/19 20:16 Temperature Pulse Rate 97 H Respiratory Rate Blood Pressure 110/34 O2 Sat by Pulse 90 Oximetry - Labs CBC & Chem 7: 05/18/19 01:50 05/18/19 01:50 Labs: Abnormal lab results 05/18/19 05/18/19 05/18/19 Range/Units 01:50 01:50 04:41 RBC 3.49 L (3.65-5.03) M/mm3 Hgb 9.4 L (11.8-15.2) gm/dl Hct 30.0 L (35.5-45.6) % MCH 27 L (28-32) pg MCHC 31 L (32-34) % RDW 17.8 H (13.2-15.2) % Lymph % (Auto) 7.9 L (13.4-35.0) % [place] % (Auto) 15.4 H (0.0-7.3) % Eos % (Auto) 6.3 H (0.0-4.3) % Lymph # 0.7 L (1.2-5.4) K/mm3 [place] # 1.4 H (0.0-0.8) K/mm3 Eos # 0.6 H (0.0-0.4) K/mm3 Seg Neutrophils % 70.2 H (40.0-70.0) % POC ABG pH 7.260 L (7.35-7.45) POC ABG pCO2 54.9 H (35-45) Potassium 5.6 H (3.6-5.0) mmol/L BUN 104 H (9-20) mg/dL Creatinine 6.6 H (0.8-1.5) mg/dL Glucose 107 H (75-100) mg/dL POC Glucose (70-105) 05/18/19 05/18/19 Range/Units 05:24 11:34 RBC (3.65-5.03) M/mm3 Hgb (11.8-15.2) gm/dl Hct (35.5-45.6) % MCH (28-32) pg MCHC (32-34) % RDW (13.2-15.2) % Lymph % (Auto) (13.4-35.0) % [place] % (Auto) (0.0-7.3) % Eos % (Auto) (0.0-4.3) % Lymph # (1.2-5.4) K/mm3 [place] # (0.0-0.8) K/mm3 Eos # (0.0-0.4) K/mm3 Seg Neutrophils % (40.0-70.0) % POC ABG pH (7.35-7.45) POC ABG pCO2 (35-45) Potassium (3.6-5.0) mmol/L BUN (9-20) mg/dL Creatinine (0.8-1.5) mg/dL Glucose (75-100) mg/dL POC Glucose 106 H 152 H (70-105)
[2019-05-18] MEDS ORDERED: SODIUM POLYSTYRENE 15 GM/60 ML ORAL LIQD PO ONE (20:42)
[2019-05-19] MEDS: fentaNYL DRIP Premix 2,000 MCG/100 ML BAG IV SCH ×5 (01:47→21:59)
[2019-05-19 04:54] LABS: Hematocrit 27.3 % (35.5-45.6); Hemoglobin 8.8 gm/dl (11.8-15.2); Mean Corpuscular HGB Conc 32 % (32-34); Mean Corpuscular Volume 85 fl (84-94); Platelet Count 353 K/mm3 (140-440); Red Blood Count 3.22 M/mm3 (3.65-5.03); Red Cell Distribution Width 17.5 % (13.2-15.2)
[2019-05-19] MEDS: SODIUM BICARBONATE 150 MEQ in DEXTROSE 5% IN WATER 1,000 ML IV SCH (05:13)
[2019-05-19] MEDS: metroNIDAZOLE/NS 500 MG/100 ML 500 MG/100 ML BAG IV SCH ×3 (05:13→21:53)
[2019-05-19 05:17] LABS: Calcium 8.3 mg/dL (8.4-10.2)
[2019-05-19 06:37] LABS: ABG Base Excess -1.6 mmol/L (-2.0-3.0); ABG HCO3 24.5 mmol/L (20.0-26.0); ABG Methemoglobin 0.5 % (0.0-1.5); ABG Oxygen Saturation 96.1 % (95.0-99.0); ABG PCO2 49.1 mm Hg; ABG PH 7.315 pH Units (7.350-7.450); ABG PO2 80.6 mm Hg (80.0-90.0)
[2019-05-19] MEDS: ACETAMINOPHEN 325 MG TAB PO PRN ×3 (08:11→18:13)
[2019-05-19 09:14] LABS: Anisocytosis 1+; Band Neutrophils # (Manual) 0.2 K/mm3; Basophils % (Manual) 0 % (0.0-1.8); Hypochromasia Few; Macrocytosis Few; Myelocytes # (Manual) 0.1 K/mm3; Platelet Clumps Few; Platelet Estimate Consistent w Auto; Total Cells Counted 100
--- NOTE | 2019-05-19 10:02 | Progress Note ---
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 follow up dialy lytes, body habitus will be difficult for access placement Suspect tubular injury in setting of sepsis, respiratory failure, hypotension. - continue supportive measures, appreciate pulm and ID input - avoid nephrotoxins - diuresis prn per pulm. - follow vanc levels daily # Hypernatremia: free water flushes with TF # HTN: BP reasonable, continue current management # Anemia: pRBC transfusion prn # Encephalopathy, seizure disorder, hypoxic respiratory failure, fever: ID and pulm following Subjective Date of service: 05/19/19 Principal diagnosis: HF; acute hypoxemic resp failure, SIRS, CARLA Interval history: resting in bed today Objective - Exam Narrative Exam: General: No acute distress/ intubated and sedated HEENT: ET tube in place Neck: Supple Chest:coarse mechanical breath sounds, PRVC with FiO2 50% Heart: Regular rate and rhythm Abdomen: Soft nontender Extremity: no edema Psych: sedated Derm: No petechial rash - Vital Signs Vital signs: Vital Signs - 12hr 05/18/19 05/18/19 05/18/19 22:15 22:30 22:45 Temperature Pulse Rate 98 H 96 H 94 H Respiratory 20 20 25 H Rate Blood Pressure 110/34 104/33 107/30 O2 Sat by Pulse 93 94 94 Oximetry 05/18/19 05/18/19 05/18/19 23:00 23:15 23:16 Temperature Pulse Rate 94 H 95 H 95 H Respiratory 22 26 H 20 Rate Blood Pressure 104/29 104/31 104/31 O2 Sat by Pulse 94 94 93 Oximetry 05/18/19 05/18/19 05/19/19 23:30 23:45 00:00 Temperature 100.9 F H Pulse Rate 95 H 102 H 104 H Respiratory 23 24 13 Rate Blood Pressure 102/27 114/50 95/25 O2 Sat by Pulse 94 93 90 Oximetry 05/19/19 05/19/19 05/19/19 00:15 00:30 00:45 Temperature Pulse Rate 104 H 102 H 102 H Respiratory 15 17 14 Rate Blood Pressure 105/29 97/30 99/32 O2 Sat by Pulse 93 92 92 Oximetry 05/19/19 05/19/19 05/19/19 00:46 01:00 01:15 Temperature Pulse Rate 102 H 100 H 99 H Respiratory 14 13 Rate Blood Pressure 99/32 96/26 98/30 O2 Sat by Pulse 92 91 92 Oximetry 05/19/19 05/19/19 05/19/19 01:30 01:45 02:00 Temperature Pulse Rate 99 H 104 H 105 H Respiratory 14 20 17 Rate Blood Pressure 101/34 107/40 106/41 O2 Sat by Pulse 92 90 91 Oximetry 05/19/19 05/19/19 05/19/19 02:15 02:30 02:45 Temperature Pulse Rate 103 H 104 H 102 H Respiratory 25 H 20 18 Rate Blood Pressure 100/38 107/37 98/32 O2 Sat by Pulse 92 91 92 Oximetry 05/19/19 05/19/19 05/19/19 03:00 03:15 03:30 Temperature Pulse Rate 102 H 102 H 101 H Respiratory 18 20 13 Rate Blood Pressure 98/35 99/29 100/31 O2 Sat by Pulse 92 92 92 Oximetry 05/19/19 05/19/19 05/19/19 03:45 04:00 04:15 Temperature 100.8 F H Pulse Rate 101 H 100 H 104 H Respiratory 12 16 14 Rate Blood Pressure 94/26 95/30 100/31 O2 Sat by Pulse 92 93 92 Oximetry 05/19/19 05/19/19 05/19/19 04:30 04:45 05:00 Temperature Pulse Rate 103 H 101 H 102 H Respiratory 17 14 15 Rate Blood Pressure 103/34 94/29 93/29 O2 Sat by Pulse 93 93 93 Oximetry 05/19/19 05/19/19 05/19/19 05:01 05:14 05:15 Temperature Pulse Rate 100 H 101 H 100 H Respiratory 20 Rate Blood Pressure 93/29 93/29 97/24 O2 Sat by Pulse 101 H 93 Oximetry 05/19/19 05/19/19 05/19/19 05:30 05:45 06:00 Temperature Pulse Rate 100 H 101 H 104 H Respiratory 21 13 16 Rate Blood Pressure 95/26 96/25 108/30 O2 Sat by Pulse 94 92 92 Oximetry 05/19/19 05/19/19 05/19/19 06:15 06:30 06:45 Temperature Pulse Rate 105 H 105 H 105 H Respiratory 17 20 15 Rate Blood Pressure 103/30 106/27 102/29 O2 Sat by Pulse 92 92 92 Oximetry 05/19/19 05/19/19 05/19/19 07:00 07:15 07:30 Temperature Pulse Rate 103 H 107 H 100 H Respiratory 12 13 17 Rate Blood Pressure 93/24 115/43 88/23 O2 Sat by Pulse 93 93 93 Oximetry 05/19/19 05/19/19 05/19/19 07:45 08:00 08:15 Temperature Pulse Rate 102 H 104 H 108 H Respiratory 20 17 26 H Rate Blood Pressure 95/30 106/29 96/26 O2 Sat by Pulse 93 93 92 Oximetry 05/19/19 05/19/19 08:30 08:45 Temperature Pulse Rate 109 H 106 H Respiratory 19 23 Rate Blood Pressure 125/44 115/33 O2 Sat by Pulse 92 91 Oximetry - Lab 05/19/19 04:06 05/19/19 04:06 Most recent lab results ABG pH 7.315 pH Units (7.350-7.450) L 05/19/19 06:00 ABG pCO2 49.1 mm Hg 05/19/19 06:00 ABG pO2 80.6 mm Hg (80.0-90.0) 05/19/19 06:00 ABG HCO3 24.5 mmol/L (20.0-26.0) 05/19/19 06:00 ABG O2 Saturation 96.1 % (95.0-99.0) 05/19/19 06:00 Calcium 8.3 mg/dL (8.4-10.2) L 05/19/19 04:06 Phosphorus 4.90 mg/dL (2.5-4.5) H 05/02/19 00:06 Magnesium 2.30 mg/dL (1.7-2.3) 05/02/19 00:06 Urine Creatinine 292.8 mg/dL (0.1-20.0) H 05/07/19 22:40 Urine Sodium 11 mmol/L 05/07/19 22:40 Urine Total Protein 269 mg/dL (5-11.8) H 05/07/19 22:40 Medications & Allergies - Medications Allergies/Adverse Reactions: Allergies No Known Allergies Allergy (Verified 05/01/19 20:27) Home Medications: Home Medications Medication Instructions Recorded Confirmed Last Taken Type No Known Home Medications [No 05/03/19 05/03/19 Unknown History Reported Home Medications] Active Medications: Generic Name Dose Route Start Last Admin Trade Name Freq PRN Reason Stop Dose Admin Acetaminophen 650 mg 05/01/19 22:46 05/19/19 08:11 Tylenol PO 650 mg Q4H PRN Administration Pain MILD(1-3)/Fever >100.5/FREEMAN Lipase/Protease/Amylase 1 each 05/14/19 15:[address] 10,500 Unit FEEDTUBE PRN PRN For Clogged Feeding Tube Dextrose 50 gm 05/01/19 20:24 D50w (25gm) Vial IV Q30MIN PRN Hypoglycemia Protocol Enoxaparin Sodium 30 mg 05/16/19 10:00 05/18/19 09:36 Enoxaparin SUB-Q 30 mg QDAY VICKEY Administration Famotidine 20 mg 05/16/19 10:00 05/18/19 09:36 Pepcid PO 20 mg DAILY VICKEY Administration Hydralazine HCl 20 mg 05/13/19 08:09 05/14/19 18:09 Apresoline IV 20 mg Q4HR PRN Administration SBP >/=160 Hydrophilic Ointment 1 applic 05/01/19 21:14 Vaseline Lip Therapy TP Q2HR PRN Dry Lips Fentanyl Citrate 2,000 mcg in 100 mls @ 10.195 mls/hr 05/01/19 22:00 05/19/19 05:54 Fentanyl Drip Premix IV 2 mcg/kg/hr TITR VICKEY 20.39 mls/hr Administration Protocol 1 MCG/KG/HR Propofol 1,000 mg in 100 mls @ 7.011 mls/hr 05/03/19 04:00 05/19/19 08:12 Diprivan 10 Mg/Ml IV 15 mcg/kg/min TITR VICKEY 21.033 mls/hr Administration Protocol 5 MCG/KG/MIN Norepinephrine 4 mg in 250 mls @ 7.5 mls/hr 05/03/19 18:00 05/18/19 16:20 Levophed Drip 4 Mg/Ns 250 Ml IV 0 mcg/min TITR VICKEY 0 mls/hr Titration Protocol 2 MCG/MIN Sodium Chloride 500 mls @ 10 mls/hr 05/06/19 15:00 Nacl 0.9% 500 Ml IV DIRECT VICKEY Metronidazole 500 mg in 100 mls @ 100 mls/hr 05/11/19 14:00 05/19/19 05:13 Flagyl 500 Mg/100 Ml IV 05/21/19 13:59 100 mls/hr Q8HR VIKCEY Administration Protocol Nicardipine HCl 50 mg/ Sodium 250 mls @ 25 mls/hr 05/13/19 10:00 05/14/19 23: 12 Chloride IV 0 mg/hr TITR VICKEY 0 mls/hr Titration Protocol 5 MG/HR Sodium Bicarbonate 150 meq/ 1,150 mls @ 75 mls/hr 05/18/19 11:30 05/19/19 05:13 Dextrose IV 75 mls/hr DIRECT VICKEY Administration Cefepime HCl 2 gm in 100 mls @ 200 mls/hr 05/18/19 11:00 05/18/19 11:48 Cefepime/Ns 2 Gm/100 Ml IV 200 mls/hr Q24HR VICKEY Administration Protocol Labetalol HCl 100 mg 05/14/19 14:00 05/19/19 07:26 Labetalol PO Not Given Q8HR VICKEY Levetiracetam 750 mg 05/13/19 10:00 05/18/19 21:31 Keppra PO 750 mg BID VICKEY Administration Lorazepam 2 mg 05/06/19 06:22 05/10/19 16:17 Ativan IV 2 mg Q4H PRN Administration Seizures/AGITATION Multi-Ingred Cream/Lotion/Oil/Oint 1 applic 05/01/19 21:14 Artificial Tears Ophth Oint OU Q4HR PRN Dry Eye(s) Ondansetron HCl 4 mg 05/01/19 22:46 Zofran IV Q8H PRN Nausea And Vomiting Simple Syrup 15 ml 05/14/19 15:01 Simple Syrup FEEDTUBE PRN PRN Hypoglycemia Simple Syrup 30 ml 05/14/19 15:01 Simple Syrup FEEDTUBE PRN PRN Hypoglycemia Sodium Bicarbonate 325 mg 05/14/19 15:01 Sodium Bicarbonate FEEDTUBE PRN PRN For Clogged Feeding Tube Sodium Chloride 10 ml 05/02/19 10:00 05/19/19 08:11 Sodium Chloride Flush Syringe 10 Ml IV Not Given BID VICKEY Sodium Chloride 10 ml 05/01/19 22:46 12/11/19 02:28 Sodium Chloride Flush Syringe 10 Ml IV 10 ml PRN PRN Administration LINE FLUSH
--- NOTE | 2019-05-19 10:08 | Progress Note ---
Assessment and Plan Assessment and plan: 34-year-old man who is morbidly obese with unknown medical problem was brought to the emergency room with complaints of shortness of breath and difficulty sleeping. History is per the chart, nurse reported that his saturation dropped to 28%, heart rate in the 50s, she checked on them, he was cyanotic and was subsequently intubated and recieved 2 rounds of epinephrine. Cardiac arrest. * Discussed with pulmonary, Some improvement in saturation to the 90% range. 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 * [employer] of prognosis discussed with family and they are aware. Blood cultures: no growth thus far Sputum culture: no growth thus far urine culture: no growth s/p Cardiac arrest Resuscitated cardiology consulted, following Acute hypoxic and hypercapenic respiratory failure on vent >96hrs Status post intubation, continue sedation, consulted pulmonary And input noted still on high PEEP. 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 Obesity Hypoventilation syndrome Patient previously on LANDON Management at home but per discussion with family, was non complaint Sepsis- not present on admission -On abx, ID following. LP when able ?Meningitis considering recurrent fever. Doubt, but ID following Acylovir stopped ?seizure activity -Meninigitis prophy -Neurology consult -EEG-negative Acute CHF, new onset, Diurese with IV lasix held, monitor I/O, daily weights Cardiology following. Added beta-jenny, no TIM inhibitor secondary to renal insufficiency Hypertension malignant Start antihypertensive, monitor blood pressure IV hydralazine as needed for further control Acute kidney injury due to ATN ?Vancomycin toxicity, Held. Monitor Nephrology following and input noted. Berkowitz for strict I/Os HD per nephrology Hyperkalemia-KAYXALATE NEEDED Passive congestive hepatic syndrome -LFT elevated but trending down -Noted Gallbladder sludge DVT prophylaxis with Lovenox Morbid obesity Full code status. Prognosis guarded Discussed with Mother and another family male member that came with the mom yesterday. All questions answered The high probability of a clinically significant, sudden or life threatening d eterioration of the [cardiovascular, Pulmonary, renal, neurological] system(s) required my full and direct attention, intervention and personal management. The aggregate critical care time was [35] minutes. This time is in addition to time spent performing reported procedures but includes the following: [x] Data Review and interpretation [x] Patient assessment and monitoring of vital signs [x] Documentation [x] Medication orders and management History Interval history: Patient seen and examined, remains on full ventilatory support, Blood pressure medication adjusted appropriately. Hospitalist Physical - Physical exam Narrative exam: Gen: Not in acute distress, intubated, no evidence of vent-patient dyschronny on vent, morbidly obese HEENT: Normocephalic, atraumatic, short and large neck circumference Neck: supple, no JVD Heart: S1 and S2 reg, no murmurs, rubs or gallop Lungs: Clear to auscultation bilaterally, no wheeze Abd: soft, NT, non distended, normal bowel sounds Ext:No edema, no cyanosis Neuro: Intubated, sedated - Constitutional Vitals: Temp Pulse Resp BP Pulse Ox 100.8 F H 106 H 23 115/33 91 05/19/19 04:00 05/19/19 08:45 05/19/19 08:45 05/19/19 08:45 05/19/19 08:45 General appearance: Present: no acute distress Results - Labs CBC & Chem 7: 05/19/19 04:06 05/19/19 04:06 Labs: Laboratory Last Values WBC 7.9 K/mm3 (4.5-11.0) 05/19/19 04:06 RBC 3.22 M/mm3 (3.65-5.03) L 05/19/19 04:06 Hgb 8.8 gm/dl (11.8-15.2) L 05/19/19 04:06 Hct 27.3 % (35.5-45.6) L 05/19/19 04:06 MCV 85 fl (84-94) 05/19/19 04:06 MCH 27 pg (28-32) L 05/19/19 04:06 MCHC 32 % (32-34) 05/19/19 04:06 RDW 17.5 % (13.2-15.2) H 05/19/19 04:06 Plt Count 353 K/mm3 (140-440) 05/19/19 04:06 Lymph % (Auto) 7.9 % (13.4-35.0) L 05/18/19 01:50 [place] % (Auto) [employer] 05/19/19 04:06 Eos % (Auto) 6.3 % (0.0-4.3) H 05/18/19 01:50 Baso % (Auto) 0.2 % (0.0-1.8) 05/18/19 01:50 Lymph # 0.7 K/mm3 (1.2-5.4) L 05/18/19 01:50 [place] # 1.4 K/mm3 (0.0-0.8) H 05/18/19 01:50 Eos # 0.6 K/mm3 (0.0-0.4) H 05/18/19 01:50 Baso # 0.0 K/mm3 (0.0-0.1) 05/18/19 01:50 Add Manual Diff Complete 05/19/19 04:06 Total Counted 100 05/19/19 04:06 Seg Neutrophils % 70.2 % (40.0-70.0) H 05/18/19 01:50 Seg Neuts % (Manual) 74.0 % (40.0-70.0) H 05/19/19 04:06 Band Neutrophils % 2.0 % 05/19/19 04:06 Lymphocytes % (Manual) 4.0 % (13.4-35.0) L 05/19/19 04:06 Reactive Lymphs % (Man) 0 % 05/19/19 04:06 Monocytes % (Manual) 11.0 % (0.0-7.3) H 05/19/19 04:06 Eosinophils % (Manual) 7.0 % (0.0-4.3) H 05/19/19 04:06 Basophils % (Manual) 0 % (0.0-1.8) 05/19/19 04:06 Metamyelocytes % 1.0 % 05/19/19 04:06 Myelocytes % 1.0 % 05/19/19 04:06 Promyelocytes % 0 % 05/19/19 04:06 Blast Cells % 0 % 05/19/19 04:06 Nucleated RBC % 1.0 % (0.0-0.9) H 05/19/19 04:06 Seg Neutrophils # 6.5 K/mm3 (1.8-7.7) 05/18/19 01:50 Seg Neutrophils # Man 5.8 K/mm3 (1.8-7.7) 05/19/19 04:06 Band Neutrophils # 0.2 K/mm3 05/19/19 04:06 Lymphocytes # (Manual) 0.3 K/mm3 (1.2-5.4) L 05/19/19 04:06 Abs React Lymphs (Man) 0.0 K/mm3 05/19/19 04:06 Monocytes # (Manual) 0.9 K/mm3 (0.0-0.8) H 05/19/19 04:06 Eosinophils # (Manual) 0.6 K/mm3 (0.0-0.4) H 05/19/19 04:06 Basophils # (Manual) 0.0 K/mm3 (0.0-0.1) 05/19/19 04:06 Metamyelocytes # 0.1 K/mm3 05/19/19 04:06 Myelocytes # 0.1 K/mm3 05/19/19 04:06 Promyelocytes # 0.0 K/mm3 05/19/19 04:06 Blast Cells # 0.0 K/mm3 05/19/19 04:06 WBC Morphology Not Reportable 05/19/19 04:06 Hypersegmented Neuts Not Reportable 05/19/19 04:06 Hyposegmented Neuts Not Reportable 05/19/19 04:06 Hypogranular Neuts Not Reportable 05/19/19 04:06 Smudge Cells Not Reportable 05/19/19 04:06 Toxic Granulation Not Reportable 05/19/19 04:06 Toxic Vacuolation Not Reportable 05/19/19 04:06 Dohle Bodies Not Reportable 05/19/19 04:06 Pelger-Huet Anomaly Not Reportable 05/19/19 04:06 Renea Rods Not Reportable 05/19/19 04:06 Platelet Estimate Consistent w auto 05/19/19 04:06 Clumped Platelets Few 05/19/19 04:06 Plt Clumps, EDTA Not Reportable 05/19/19 04:06 Large Platelets Not Reportable 05/19/19 04:06 Giant Platelets Not Reportable 05/19/19 04:06 Platelet Satelliting Not Reportable 05/19/19 04:06 Plt Morphology Comment Not Reportable 05/19/19 04:06 RBC Morphology Not Reportable 05/19/19 04:06 Dimorphic RBCs Not Reportable 05/19/19 04:06 Polychromasia Not Reportable 05/19/19 04:06 Hypochromasia Few 05/19/19 04:06 Poikilocytosis Not Reportable 05/19/19 04:06 Anisocytosis 1+ 05/19/19 04:06 Microcytosis Not Reportable 05/19/19 04:06 Macrocytosis Few 05/19/19 04:06 Spherocytes Not Reportable 05/19/19 04:06 Pappenheimer Bodies Not Reportable 05/19/19 04:06 Sickle Cells Not Reportable 05/19/19 04:06 Target Cells Not Reportable 05/19/19 04:06 Tear Drop Cells Not Reportable 05/19/19 04:06 Ovalocytes Not Reportable 05/19/19 04:06 Helmet Cells Not Reportable 05/19/19 04:06 [place] Bodies Not Reportable 05/19/19 04:06 [place] Rings Not Reportable 05/19/19 04:06 [place] Cells Not Reportable 05/19/19 04:06 Bite Cells Not Reportable 05/19/19 04:06 Crenated Cell Not Reportable 05/19/19 04:06 Elliptocytes Not Reportable 05/19/19 04:06 Acanthocytes (Spur) Not Reportable 05/19/19 04:06 Rouleaux Not Reportable 05/19/19 04:06 Hemoglobin C Crystals Not Reportable 05/19/19 04:06 Schistocytes Not Reportable 05/19/19 04:06 Malaria parasites Not Reportable 05/19/19 04:06 Syed Bodies Not Reportable 05/19/19 04:06 Hem Pathologist Commnt No 05/19/19 04:06 PT 15.4 Sec. (12.2-14.9) H 05/01/19 Unknown INR 1.23 (0.87-1.13) H 05/01/19 Unknown APTT 22.7 Sec. (24.2-36.6) L 05/01/19 Unknown POC ABG pH 7.260 (7.35-7.45) L 05/18/19 04:41 ABG pH 7.315 pH Units (7.350-7.450) L 05/19/19 06:00 POC ABG pCO2 54.9 (35-45) H 05/18/19 04:41 ABG pCO2 49.1 mm Hg 05/19/19 06:00 POC ABG pO2 80 (80-105) 05/18/19 04:41 ABG pO2 80.6 mm Hg (80.0-90.0) 05/19/19 06:00 POC ABG HCO3 24.6 (22-26 mml/L) 05/18/19 04:41 ABG HCO3 24.5 mmol/L (20.0-26.0) 05/19/19 06:00 POC ABG Total CO2 26 (23-27mmol/L) 05/18/19 04:41 POC ABG O2 Sat 93 05/18/19 04:41 ABG O2 Saturation 96.1 % (95.0-99.0) 05/19/19 06:00 ABG O2 Content 9.0 (0.0-44) 05/19/19 06:00 POC ABG Base Excess -2 ((-2) - (+3)mmol/L) 05/18/19 04:41 ABG Base Excess -1.6 mmol/L (-2.0-3.0) 05/19/19 06:00 ABG Hemoglobin 6.7 gm/dl (14.0-18.0) L 05/19/19 06:00 ABG Carboxyhemoglobin 1.6 % (0.0-5.0) 05/19/19 06:00 ABG Methemoglobin 0.5 % (0.0-1.5) 05/19/19 06:00 Oxyhemoglobin 94.1 % (95.0-99.0) L 05/19/19 06:00 FiO2 55 % 05/19/19 06:00 Sodium 137 mmol/L (137-145) 05/19/19 04:06 Potassium 5.2 mmol/L (3.6-5.0) H 05/19/19 04:06 Chloride 98.3 mmol/L (98-107) 05/19/19 04:06 Carbon Dioxide 21 mmol/L (22-30) L 05/19/19 04:06 Anion Gap 23 mmol/L 05/19/19 04:06 BUN 110 mg/dL (9-20) H 05/19/19 04:06 Creatinine 7.2 mg/dL (0.8-1.5) H 05/19/19 04:06 Estimated GFR 11 ml/min 05/19/19 04:06 BUN/Creatinine Ratio 15 % 05/19/19 04:06 Glucose 96 mg/dL (75-100) 05/19/19 04:06 POC Glucose 102 (70-105) 05/19/19 05:45 Osmolality 327 Mosm/kg 05/07/19 13:45 Uric Acid 18.0 mg/dL (3.5-7.6) H 05/07/19 13:45 Calcium 8.3 mg/dL (8.4-10.2) L 05/19/19 04:06 Phosphorus 4.90 mg/dL (2.5-4.5) H 05/02/19 00:06 Magnesium 2.30 mg/dL (1.7-2.3) 05/02/19 00:06 Total Bilirubin 0.20 mg/dL (0.1-1.2) 05/10/19 05:00 AST 34 units/L (5-40) 05/10/19 05:00 ALT 35 units/L (7-56) 05/10/19 05:00 Alkaline Phosphatase 45 units/L (35-129) 05/10/19 05:00 Total Creatine Kinase 131 units/L (55-170) 05/02/19 04:41 CK-MB (CK-2) 5.2 ng/mL (0.0-4.0) H 05/02/19 04:41 CK-MB (CK-2) Rel Index 3.9 (0-4) 05/02/19 04:41 Troponin T 0.067 ng/mL (0.00-0.029) H D 05/02/19 04:41 NT-Pro-B Natriuret Pep 6831 pg/mL (0-450) H 05/01/19 Unknown Total Protein 6.1 g/dL (6.3-8.2) L 05/10/19 05:00 Albumin 2.5 g/dL (3.9-5) L 05/10/19 05:00 Albumin/Globulin Ratio 0.7 % 05/10/19 05:00 Triglycerides 173 mg/dL (2-149) H 05/17/19 Unknown Cholesterol 173 mg/dL (50-199) 05/02/19 00:06 LDL Cholesterol Direct 126 mg/dL (50-130) 05/02/19 00:06 HDL Cholesterol 18 mg/dL (40-59) L 05/02/19 00:06 Cholesterol/HDL Ratio 9.61 % 05/02/19 00:06 Procalcitonin 0.54 ng/mL (<0.15) 05/03/19 11:52 Urine Color Yellow (Yellow) 05/03/19 10:55 Urine Turbidity Turbid (Clear) 05/03/19 10:55 Urine pH 5.0 (5.0-7.0) 05/03/19 10:55 Ur Specific [employer] 1.014 (1.003-1.030) 05/03/19 10:55 Urine Protein <15 mg/dl mg/dL (Negative) 05/03/19 10:55 Urine Glucose (UA) Neg mg/dL (Negative) 05/03/19 10:55 Urine Ketones Neg mg/dL (Negative) 05/03/19 10:55 Urine Blood Lg (Negative) 05/03/19 10:55 Urine Nitrite Neg (Negative) 05/03/19 10:55 Urine Bilirubin Neg (Negative) 05/03/19 10:55 Urine Urobilinogen < 2.0 mg/dL (<2.0) 05/03/19 10:55 Ur Leukocyte Esterase Mod (Negative) 05/03/19 10:55 Urine WBC (Auto) 33.0 /HPF (0.0-6.0) H 05/03/19 10:55 Urine RBC (Auto) 8.0 /HPF (0.0-6.0) 05/03/19 10:55 Urine Bacteria (Auto) 1+ /HPF (Negative) 05/03/19 10:55 Uric Acid Crystals 3+ 05/03/19 10:55 Urine Mucus Few /HPF 05/03/19 10:55 Urine Creatinine 292.8 mg/dL (0.1-20.0) H 05/07/19 22:40 Urine Sodium 11 mmol/L 05/07/19 22:40 Urine Total Protein 269 mg/dL (5-11.8) H 05/07/19 22:40 Vancomycin Trough 20.5 ug/mL (5.0-20.0) H 05/15/19 09:00 Random Vancomycin 22.2 ug/mL (0-40.0) 05/18/19 15:52 AMNA Screen Negative (Negative) 05/07/19 13:45 Hepatitis A IgM Ab Non-reactive (NonReactive) 05/07/19 13:45 Hep Bs Antigen Non-reactive (Negative) 05/07/19 13:45 Hep B Core IgM Ab Non-reactive (NonReactive) 05/07/19 13:45 Hepatitis C Antibody Non-reactive (NonReactive) 05/07/19 13:45 Active Medications - Current Medications Current Medications: Generic Name Dose Route Start Last Admin Trade Name Freq PRN Reason Stop Dose Admin Acetaminophen 650 mg 05/01/19 22:46 05/19/19 08:11 Tylenol PO 650 mg Q4H PRN Administration Pain MILD(1-3)/Fever >100.5/FREEMAN Lipase/Protease/Amylase 1 each 05/14/19 15:01 Pancreaze 10,500 Unit FEEDTUBE PRN PRN For Clogged Feeding Tube Dextrose 50 gm 05/01/19 20:24 D50w (25gm) Vial IV Q30MIN PRN Hypoglycemia Protocol Enoxaparin Sodium 30 mg 05/16/19 10:00 05/18/19 09:36 Enoxaparin SUB-Q 30 mg QDAY VICKEY Administration Famotidine 20 mg 05/16/19 10:00 05/18/19 09:36 Pepcid PO 20 mg DAILY VICKEY Administration Hydralazine HCl 20 mg 05/13/19 08:09 05/14/19 18:09 Apresoline IV 20 mg Q4HR PRN Administration SBP >/=160 Hydrophilic Ointment 1 applic 05/01/19 21:14 Vaseline Lip Therapy TP Q2HR PRN Dry Lips Fentanyl Citrate 2,000 mcg in 100 mls @ 10.195 mls/hr 05/01/19 22:00 05/19/19 05:54 Fentanyl Drip Premix IV 2 mcg/kg/hr TITR VICKEY 20.39 mls/hr Administration Protocol 1 MCG/KG/HR Propofol 1,000 mg in 100 mls @ 7.011 mls/hr 05/03/19 04:00 05/19/19 08:12 Diprivan 10 Mg/Ml IV 15 mcg/kg/min TITR VICKEY 21.033 mls/hr Administration Protocol 5 MCG/KG/MIN Norepinephrine 4 mg in 250 mls @ 7.5 mls/hr 05/03/19 18:00 05/18/19 16:20 Levophed Drip 4 Mg/Ns 250 Ml IV 0 mcg/min TITR VICKEY 0 mls/hr Titration Protocol 2 MCG/MIN Sodium Chloride 500 mls @ 10 mls/hr 05/06/19 15:00 Nacl 0.9% 500 Ml IV DIRECT VICKEY Metronidazole 500 mg in 100 mls @ 100 mls/hr 05/11/19 14:00 05/19/19 05:13 Flagyl 500 Mg/100 Ml IV 05/21/19 13:59 100 mls/hr Q8HR VICKEY Administration Protocol Nicardipine HCl 50 mg/ Sodium 250 mls @ 25 mls/hr 05/13/19 10:00 05/14/19 23:12 Chloride IV 0 mg/hr TITR VICKEY 0 mls/hr Titration Protocol 5 MG/HR Sodium Bicarbonate 150 meq/ 1,150 mls @ 75 mls/hr 05/18/19 11:30 05/19/19 05:13 Dextrose IV 75 mls/hr DIRECT VICKEY Administration Cefepime HCl 2 gm in 100 mls @ 200 mls/hr 05/18/19 11:00 05/18/19 11:48 Cefepime/Ns 2 Gm/100 Ml IV 200 mls/hr Q24HR VICKEY Administration Protocol Labetalol HCl 100 mg 05/14/19 14:00 05/19/19 07:26 Labetalol PO Not Given Q8HR VICKEY Levetiracetam 750 mg 05/13/19 10:00 05/18/19 21:31 Keppra PO 750 mg BID VICKEY Administration Lorazepam 2 mg 05/06/19 06:22 05/10/19 16:17 Ativan IV 2 mg Q4H PRN Administration Seizures/AGITATION Multi-Ingred Cream/Lotion/Oil/Oint 1 applic 05/01/19 21:14 Artificial Tears Ophth Oint OU Q4HR PRN Dry Eye(s) Ondansetron HCl 4 mg 05/01/19 22:46 Zofran IV Q8H PRN Nausea And Vomiting Simple Syrup 15 ml 05/14/19 15:01 Simple Syrup FEEDTUBE PRN PRN Hypoglycemia Simple Syrup 30 ml 05/14/19 15:01 Simple Syrup FEEDTUBE PRN PRN Hypoglycemia Sodium Bicarbonate 325 mg 05/14/19 15:01 Sodium Bicarbonate FEEDTUBE PRN PRN For Clogged Feeding Tube Sodium Chloride 10 ml 05/02/19 10:00 05/19/19 08:11 Sodium Chloride Flush Syringe 10 Ml IV Not Given BID VICKEY Sodium Chloride 10 ml 05/01/19 22:46 05/05/19 02:28 Sodium Chloride Flush Syringe 10 Ml IV 10 ml PRN PRN Administration LINE FLUSH Nutrition/Malnutrition Assess - Dietary Evaluation Nutrition/Malnutrition Findings: Nutrition Notes Start: 05/04/19 12:54 Freq: Status: Active Protocol: Document 05/14/19 10:48 DW (Rec: 05/14/19 11:32 DW [id number]) Co-Sign 05/14/19 10:48 LP Nutrition Notes Initial or Follow up Reassessment Current Diagnosis Acute Kidney Injury,Sepsis, Respiratory Failure Current Diet Nepro 1.8 at 60ml/hr Labs/Tests Na 135 BUN 57 Cr 2.2 Pertinent Medications Propofol at 7.011 ml/hr (185 kcal) Height 6 ft 4 in Weight 227.5 kg [place] Body Weight (kg) 91.81 BMI 61.0 Weight Status Morbidly Obese Subjective/Other Information FU TF tolerance and Na labs Upon arrival noticed Nepro 1.8 running at goal of 50ml/hr Na lab did big jump from 05/11 of Na 145 to 135 today. Flush to decrease to 200ml qh4 Percent of energy/protein needs met: 86%/43% Burn Absent Trauma Absent Current % PO Negligible Minimum of two criteria No physical signs of malnutrition #1 Nutrition Diagnosis Inadequate oral intake Diagnosis Progress(for reassessment Continues documentation) Is patient on ventilator? Yes Is Patient Ambulatory and/or Out of Bed No REE-([facility]-confined to bed) 3986.244 Kcal/Kg value to use for calculation 11 Approximate Energy Requirements Using 2503 kcal/Kg Calculation Used for Recommendations Kcal/kg Additional Notes PRO needs: 225 g (up to 2.5 g/ kg 91.81 IBW) Fluid needs: 1 ml/kcal Nutrition Intervention Change Diet Order: Continue TF Nutrition Support: Nepro 1.8 at 50 ml/hr flush 200 ml q4hr once Kcal 2,160 Protein (gm) 97 Fluid (mL) 872 Goal #1 TF tolerance Goal #2 Meet at least 75% kcal/PRO needs via TF Anticipated Discharge Needs: Unable to determine at this time Follow-Up By: 05/21/19 Additional Comments F/U for TF tolerance
[2019-05-19] MEDS: FAMOTIDINE 20 MG TAB PO SCH (10:10)
[2019-05-19] MEDS: CEFEPIME/NS 2 GM/100 ML 2 GM/100 ML BAG IV SCH (10:10)
[2019-05-19] MEDS: levETIRAcetam 500 MG/5 ML ORAL LIQD PO SCH ×2 (10:10→21:53)
[2019-05-19] MEDS: ENOXAPARIN 30 MG/0.3 ML INJ SUB-Q SCH (10:10)
[2019-05-19] MEDS ORDERED: ALBUMIN HUMAN 25% (25 GM/100 ML) INJ IV PRN (10:47)
--- NOTE | 2019-05-19 11:18 | Progress Note ---
Assessment and Plan Cultures: Blood cultures 05/11/19: no growth thus far Blood cultures 05/18/19 pending Sputum culture 05/11/19: no growth thus far urine culture: no growth resp culture: no growth Blood culture 05/18/2019: no growth thus far A/P: 34-year-old male with obesity admitted with: #Fever, SIRS: Patient was afebrile for the first 2 days of hospitalization, then he developed a fever of 101.2F. ?aspiration related. Apparently was using CPAP. Now febrile again, ?UTI. UA showed pyuria, had indwelling Berkowitz which was removed. Urine culture with no growth. Fevers now recurred since 05/17. Unclear etiology. Blood cultures repeated. 05/18 CXR with greater vascular congestion, pleural effusions. #Acute hypoxic hypercapneic respiratory failure, possibly obesity hypove ntilation syndrome: on the vent. Pulmonary managing. #Morbid obesity #CARLA: creatinine elevated. dose abx accordingly. #Elevated LFTs: RUQ US showed fatty liver, small GB sludge. Improving. #Acute encephalopathy with ?seizure activity: persistent fevers. Has been receiving empiric meningitis coverage Recs: - Hold further vancomycin given worsening renal function and elevated levels - ceftriaxone was changed to cefepime on 05/18/2019 to add possible Pseudomonas coverage given risk factors - continue metronidazole for aspiration concern - follow up blood cultures, patient has indwelling PICC line placed on 05/03/2019 Dr. Manuel gonzalez tomorrow. Burke Wilks MD, FACP [facility] ([facility]) C: [phone] O: [phone] F: [phone] Subjective Date of service: 05/19/19 Principal diagnosis: HF; acute hypoxemic resp failure, SIRS, CARLA Interval history: Febrile. Remains intubated, sedated on the vent. Creatinine worsening. Objective - Exam Narrative Exam: Physical Exam: Constitutional: sedated, intubated. Morbid obesity Head, Ears, Nose: Normocephalic, atraumatic. External ears, nose normal Eyes: Conjunctivae/corneas clear. No icterus. No ptosis. Neck: intubated Oral: intubated Cardiovascular: S1, S2 normal. Respiratory: Good air entry, clear to auscultation bilaterally GI: Soft, non-tender; bowel sounds normal. No peritoneal signs Musculoskeletal: No pedal edema, no cyanosis. Skin: No rash or abscess Hem/Lymphatic: No palpable cervical or supraclavicular nodes. No lymphangitis Psych: no agitation Neurological: sedated, intubated, on vent - Constitutional Vitals: Vital Signs Temp Pulse Resp BP Pulse Ox 100.8 F H 106 H 23 115/33 91 05/19/19 04:00 05/19/19 08:45 05/19/19 08:45 05/19/19 08:45 05/19/19 08:45 Temperature -Last 24 Hours Temperature 100.8 F Temperature 100.9 F Temperature 100.3 F Temperature 100 F Temperature 99.1 F - Labs CBC & Chem 7: 05/19/19 04:06 05/19/19 04:06 Labs: Abnormal lab results 05/18/19 05/18/19 05/19/19 Range/Units 11:34 23:26 04:06 RBC 3.22 L (3.65-5.03) M/mm3 Hgb 8.8 L (11.8-15.2) gm/dl Hct 27.3 L (35.5-45.6) % MCH 27 L (28-32) pg RDW 17.5 H (13.2-15.2) % Seg Neuts % (Manual) 74.0 H (40.0-70.0) % Lymphocytes % (Manual) 4.0 L (13.4-35.0) % Monocytes % (Manual) 11.0 H (0.0-7.3) % Eosinophils % (Manual) 7.0 H (0.0-4.3) % Nucleated RBC % 1.0 H (0.0-0.9) % Lymphocytes # (Manual) 0.3 L (1.2-5.4) K/mm3 Monocytes # (Manual) 0.9 H (0.0-0.8) K/mm3 Eosinophils # (Manual) 0.6 H (0.0-0.4) K/mm3 ABG pH (7.350-7.450) pH Units ABG Hemoglobin (14.0-18.0) gm/dl Oxyhemoglobin (95.0-99.0) % Potassium (3.6-5.0) mmol/L Carbon Dioxide (22-30) mmol/L BUN (9-20) mg/dL Creatinine (0.8-1.5) mg/dL POC Glucose 152 H 112 H (70-105) Calcium (8.4-10.2) mg/dL 05/19/19 05/19/19 Range/Units 04:06 06:00 RBC (3.65-5.03) M/mm3 Hgb (11.8-15.2) gm/dl Hct (35.5-45.6) % MCH (28-32) pg RDW (13.2-15.2) % Seg Neuts % (Manual) (40.0-70.0) % Lymphocytes % (Manual) (13.4-35.0) % Monocytes % (Manual) (0.0-7.3) % Eosinophils % (Manual) (0.0-4.3) % Nucleated RBC % (0.0-0.9) % Lymphocytes # (Manual) (1.2-5.4) K/mm3 Monocytes # (Manual) (0.0-0.8) K/mm3 Eosinophils # (Manual) (0.0-0.4) K/mm3 ABG pH 7.315 L (7.350-7.450) pH Units ABG Hemoglobin 6.7 L (14.0-18.0) gm/dl Oxyhemoglobin 94.1 L (95.0-99.0) % Potassium 5.2 H (3.6-5.0) mmol/L Carbon Dioxide 21 L (22-30) mmol/L BUN 110 H (9-20) mg/dL Creatinine 7.2 H (0.8-1.5) mg/dL POC Glucose (70-105) Calcium 8.3 L (8.4-10.2) mg/dL - Imaging and cardiology Chest x-ray: report reviewed, image reviewed (central vascular congestion and bilateral pleural effusions)
--- NOTE | 2019-05-19 12:22 | Progress Note ---
Subjective Principal diagnosis: HF; acute hypoxemic resp failure, SIRS, CARLA Objective - Vital Sign Vital Signs - 12hr 05/19/19 05/19/19 05/19/19 00:30 00:45 00:46 Temperature Pulse Rate 102 H 102 H 102 H Respiratory 17 14 Rate Blood Pressure 97/30 99/32 99/32 O2 Sat by Pulse 92 92 92 Oximetry 05/19/19 05/19/19 05/19/19 01:00 01:15 01:30 Temperature Pulse Rate 100 H 99 H 99 H Respiratory 14 13 14 Rate Blood Pressure 96/26 98/30 101/34 O2 Sat by Pulse 91 92 92 Oximetry 05/19/19 05/19/19 05/19/19 01:45 02:00 02:15 Temperature Pulse Rate 104 H 105 H 103 H Respiratory 20 17 25 H Rate Blood Pressure 107/40 106/41 100/38 O2 Sat by Pulse 90 91 92 Oximetry 05/19/19 05/19/19 05/19/19 02:30 02:45 03:00 Temperature Pulse Rate 104 H 102 H 102 H Respiratory 20 18 18 Rate Blood Pressure 107/37 98/32 98/35 O2 Sat by Pulse 91 92 92 Oximetry 05/19/19 05/19/19 05/19/19 03:15 03:30 03:45 Temperature Pulse Rate 102 H 101 H 101 H Respiratory 20 13 12 Rate Blood Pressure 99/29 100/31 94/26 O2 Sat by Pulse 92 92 92 Oximetry 05/19/19 05/19/19 05/19/19 04:00 04:15 04:30 Temperature 100.8 F H Pulse Rate 100 H 104 H 103 H Respiratory 16 14 17 Rate Blood Pressure 95/30 100/31 103/34 O2 Sat by Pulse 93 92 93 Oximetry 05/19/19 05/19/19 05/19/19 04:45 05:00 05:01 Temperature Pulse Rate 101 H 102 H 100 H Respiratory 14 15 Rate Blood Pressure 94/29 93/29 93/29 O2 Sat by Pulse 93 93 101 H Oximetry 05/19/19 05/19/19 05/19/19 05:14 05:15 05:30 Temperature Pulse Rate 101 H 100 H 100 H Respiratory 20 21 Rate Blood Pressure 93/29 97/24 95/26 O2 Sat by Pulse 93 94 Oximetry 05/19/19 05/19/19 05/19/19 05:45 06:00 06:15 Temperature Pulse Rate 101 H 104 H 105 H Respiratory 13 16 17 Rate Blood Pressure 96/25 108/30 103/30 O2 Sat by Pulse 92 92 92 Oximetry 05/19/19 05/19/19 05/19/19 06:30 06:45 07:00 Temperature Pulse Rate 105 H 105 H 103 H Respiratory 20 15 12 Rate Blood Pressure 106/27 102/29 93/24 O2 Sat by Pulse 92 92 93 Oximetry 05/19/19 05/19/19 05/19/19 07:15 07:30 07:45 Temperature Pulse Rate 107 H 100 H 102 H Respiratory 13 17 20 Rate Blood Pressure 115/43 88/23 95/30 O2 Sat by Pulse 93 93 93 Oximetry 05/19/19 05/19/19 05/19/19 08:00 08:15 08:30 Temperature Pulse Rate 104 H 108 H 109 H Respiratory 17 26 H 19 Rate Blood Pressure 106/29 96/26 125/44 O2 Sat by Pulse 93 92 92 Oximetry 05/19/19 05/19/19 05/19/19 08:45 09:00 09:15 Temperature Pulse Rate 106 H 104 H 105 H Respiratory 23 15 17 Rate Blood Pressure 115/33 106/29 116/34 O2 Sat by Pulse 91 92 92 Oximetry 05/19/19 05/19/19 05/19/19 09:30 09:45 10:00 Temperature Pulse Rate 103 H 103 H 102 H Respiratory 15 16 15 Rate Blood Pressure 104/29 110/33 102/33 O2 Sat by Pulse 93 96 94 Oximetry 05/19/19 05/19/19 05/19/19 10:15 10:30 10:45 Temperature Pulse Rate 101 H 101 H 101 H Respiratory 8 L 19 19 Rate Blood Pressure 103/35 100/32 103/32 O2 Sat by Pulse 94 94 94 Oximetry 05/19/19 05/19/19 05/19/19 11:00 11:15 11:17 Temperature Pulse Rate 102 H 106 H 105 H Respiratory 16 21 Rate Blood Pressure 97/40 113/36 113/36 O2 Sat by Pulse 93 91 93 Oximetry 05/19/19 05/19/19 05/19/19 11:30 11:45 12:00 Temperature Pulse Rate 104 H 102 H 102 H Respiratory 22 23 18 Rate Blood Pressure 112/36 112/31 102/29 O2 Sat by Pulse 92 94 94 Oximetry - Laboratory Findings CBC and BMP: 05/19/19 04:06 05/19/19 04:06 Abnormal Lab Findings: Abnormal Labs 05/01/19 05/01/19 05/01/19 17:50 19:26 22:36 WBC RBC Hgb Hct MCV MCH MCHC RDW Lymph % (Auto) [place] % (Auto) Eos % (Auto) Lymph # [place] # Eos # Seg Neutrophils % Seg Neuts % (Manual) Lymphocytes % (Manual) Monocytes % (Manual) Eosinophils % (Manual) Nucleated RBC % Seg Neutrophils # Lymphocytes # (Manual) Monocytes # (Manual) Eosinophils # (Manual) PT INR APTT POC ABG pH 7.272 L 7.331 L ABG pH POC ABG pCO2 52.8 H POC ABG pO2 ABG pO2 ABG HCO3 ABG O2 Saturation ABG Base Excess ABG Hemoglobin Oxyhemoglobin Sodium 136 L Potassium 6.5 H* Chloride 97.2 L Carbon Dioxide BUN 60 H Creatinine Glucose 113 H POC Glucose Uric Acid Calcium Phosphorus Magnesium 2.40 H AST 139 H ALT 154 H Total Creatine Kinase CK-MB (CK-2) Troponin T NT-Pro-B Natriuret Pep Total Protein Albumin 3.8 L Triglycerides HDL Cholesterol Urine WBC (Auto) Urine Creatinine Urine Total Protein Vancomycin Trough 05/01/19 05/01/19 05/01/19 Unknown Unknown Unknown WBC 16.1 H RBC Hgb Hct MCV MCH MCHC RDW 17.2 H Lymph % (Auto) [place] % (Auto) 9.6 H Eos % (Auto) Lymph # [place] # 1.5 H Eos # Seg Neutrophils % 73.0 H Seg Neuts % (Manual) Lymphocytes % (Manual) Monocytes % (Manual) Eosinophils % (Manual) Nucleated RBC % Seg Neutrophils # 11.7 H Lymphocytes # (Manual) Monocytes # (Manual) Eosinophils # (Manual) PT 15.4 H INR 1.23 H APTT 22.7 L POC ABG pH ABG pH POC ABG pCO2 POC ABG pO2 ABG pO2 ABG HCO3 ABG O2 Saturation ABG Base Excess ABG Hemoglobin Oxyhemoglobin Sodium Potassium Chloride Carbon Dioxide BUN Creatinine Glucose POC Glucose Uric Acid Calcium Phosphorus Magnesium AST ALT Total Creatine Kinase CK-MB (CK-2) Troponin T NT-Pro-B Natriuret Pep 6831 H Total Protein Albumin Triglycerides HDL Cholesterol Urine WBC (Auto) Urine Creatinine Urine Total Protein Vancomycin Trough 05/01/19 05/02/19 05/02/19 Unknown 00:06 00:06 WBC RBC Hgb Hct MCV MCH MCHC RDW Lymph % (Auto) [place] % (Auto) Eos % (Auto) Lymph # [place] # Eos # Seg Neutrophils % Seg Neuts % (Manual) Lymphocytes % (Manual) Monocytes % (Manual) Eosinophils % (Manual) Nucleated RBC % Seg Neutrophils # Lymphocytes # (Manual) Monocytes # (Manual) Eosinophils # (Manual) PT INR APTT POC ABG pH ABG pH POC ABG pCO2 POC ABG pO2 ABG pO2 ABG HCO3 ABG O2 Saturation ABG Base Excess ABG Hemoglobin Oxyhemoglobin Sodium Potassium Chloride Carbon Dioxide BUN Creatinine Glucose POC Glucose Uric Acid Calcium Phosphorus 4.90 H Magnesium AST ALT Total Creatine Kinase 226 H CK-MB (CK-2) 5.7 H Troponin T 0.044 H NT-Pro-B Natriuret Pep Total Protein Albumin Triglycerides 182 H HDL Cholesterol 18 L Urine WBC (Auto) Urine Creatinine Urine Total Protein Vancomycin Trough 05/02/19 05/02/19 05/02/19 02:08 04:40 04:41 WBC 17.6 H RBC Hgb Hct MCV MCH 27 L MCHC RDW 17.4 H Lymph % (Auto) 10.2 L [place] % (Auto) 11.0 H Eos % (Auto) Lymph # [place] # 1.9 H Eos # Seg Neutrophils % 78.0 H Seg Neuts % (Manual) Lymphocytes % (Manual) Monocytes % (Manual) Eosinophils % (Manual) Nucleated RBC % Seg Neutrophils # 13.8 H Lymphocytes # (Manual) Monocytes # (Manual) Eosinophils # (Manual) PT INR APTT POC ABG pH ABG pH POC ABG pCO2 46.8 H POC ABG pO2 63 L ABG pO2 ABG HCO3 ABG O2 Saturation ABG Base Excess ABG Hemoglobin Oxyhemoglobin Sodium Potassium Chloride 96.3 L Carbon Dioxide BUN 63 H Creatinine 1.7 H Glucose POC Glucose Uric Acid Calcium Phosphorus Magnesium AST ALT Total Creatine Kinase CK-MB (CK-2) Troponin T NT-Pro-B Natriuret Pep Total Protein Albumin Triglycerides HDL Cholesterol Urine WBC (Auto) Urine Creatinine Urine Total Protein Vancomycin Trough 05/02/19 05/02/19 05/02/19 04:41 04:41 16:05 WBC RBC Hgb Hct MCV MCH MCHC RDW Lymph % (Auto) [place] % (Auto) Eos % (Auto) Lymph # [place] # Eos # Seg Neutrophils % Seg Neuts % (Manual) Lymphocytes % (Manual) Monocytes % (Manual) Eosinophils % (Manual) Nucleated RBC % Seg Neutrophils # Lymphocytes # (Manual) Monocytes # (Manual) Eosinophils # (Manual) PT INR APTT POC ABG pH ABG pH POC ABG pCO2 POC ABG pO2 ABG pO2 66.6 L ABG HCO3 31.9 H ABG O2 Saturation 92.5 L ABG Base Excess 5.8 H ABG Hemoglobin 13.3 L Oxyhemoglobin 90.6 L Sodium Potassium Chloride 97.2 L Carbon Dioxide BUN 61 H Creatinine 1.8 H Glucose POC Glucose Uric Acid Calcium Phosphorus Magnesium AST ALT Total Creatine Kinase CK-MB (CK-2) 5.2 H Troponin T 0.067 H D NT-Pro-B Natriuret Pep Total Protein Albumin Triglycerides HDL Cholesterol Urine WBC (Auto) Urine Creatinine Urine Total Protein Vancomycin Trough 05/02/19 05/03/19 05/03/19 20:39 04:35 05:05 WBC 11.8 H RBC Hgb Hct MCV MCH 27 L MCHC 31 L RDW 17.2 H Lymph % (Auto) [place] % (Auto) Eos % (Auto) Lymph # [place] # Eos # Seg Neutrophils % Seg Neuts % (Manual) Lymphocytes % (Manual) Monocytes % (Manual) Eosinophils % (Manual) Nucleated RBC % Seg Neutrophils # Lymphocytes # (Manual) Monocytes # (Manual) Eosinophils # (Manual) PT INR APTT POC ABG pH ABG pH POC ABG pCO2 53.6 H 54.0 H POC ABG pO2 55 L 63 L ABG pO2 ABG HCO3 ABG O2 Saturation ABG Base Excess ABG Hemoglobin Oxyhemoglobin Sodium Potassium Chloride Carbon Dioxide BUN Creatinine Glucose POC Glucose Uric Acid Calcium Phosphorus Magnesium AST ALT Total Creatine Kinase CK-MB (CK-2) Troponin T NT-Pro-B Natriuret Pep Total Protein Albumin Triglycerides HDL Cholesterol Urine WBC (Auto) Urine Creatinine Urine Total Protein Vancomycin Trough 05/03/19 05/03/19 05/03/19 05:05 10:55 16:48 WBC RBC Hgb Hct MCV MCH MCHC RDW Lymph % (Auto) [place] % (Auto) Eos % (Auto) Lymph # [place] # Eos # Seg Neutrophils % Seg Neuts % (Manual) Lymphocytes % (Manual) Monocytes % (Manual) Eosinophils % (Manual) Nucleated RBC % Seg Neutrophils # Lymphocytes # (Manual) Monocytes # (Manual) Eosinophils # (Manual) PT INR APTT POC ABG pH 7.604 H ABG pH POC ABG pCO2 POC ABG pO2 58 L ABG pO2 ABG HCO3 ABG O2 Saturation ABG Base Excess ABG Hemoglobin Oxyhemoglobin Sodium Potassium Chloride Carbon Dioxide BUN 52 H Creatinine 1.9 H Glucose 103 H POC Glucose Uric Acid Calcium Phosphorus Magnesium AST ALT Total Creatine Kinase CK-MB (CK-2) Troponin T NT-Pro-B Natriuret Pep Total Protein Albumin Triglycerides HDL Cholesterol Urine WBC (Auto) 33.0 H Urine Creatinine Urine Total Protein Vancomycin Trough 05/04/19 05/04/19 05/04/19 04:49 06:50 06:50 WBC 16.0 H RBC Hgb Hct MCV MCH 27 L MCHC 31 L RDW 17.8 H Lymph % (Auto) [place] % (Auto) Eos % (Auto) Lymph # [place] # Eos # Seg Neutrophils % Seg Neuts % (Manual) Lymphocytes % (Manual) Monocytes % (Manual) Eosinophils % (Manual) Nucleated RBC % Seg Neutrophils # Lymphocytes # (Manual) Monocytes # (Manual) Eosinophils # (Manual) PT INR APTT POC ABG pH 7.273 L ABG pH POC ABG pCO2 POC ABG pO2 ABG pO2 ABG HCO3 ABG O2 Saturation ABG Base Excess ABG Hemoglobin Oxyhemoglobin Sodium 148 H Potassium 5.5 H Chloride Carbon Dioxide BUN 53 H Creatinine 3.3 H D Glucose 106 H POC Glucose Uric Acid Calcium 8.3 L Phosphorus Magnesium AST ALT Total Creatine Kinase CK-MB (CK-2) Troponin T NT-Pro-B Natriuret Pep Total Protein Albumin Triglycerides HDL Cholesterol Urine WBC (Auto) Urine Creatinine Urine Total Protein Vancomycin Trough 05/05/19 05/05/19 05/05/19 00:05 04:30 05:00 WBC RBC Hgb Hct MCV MCH MCHC RDW Lymph % (Auto) [place] % (Auto) Eos % (Auto) Lymph # [place] # Eos # Seg Neutrophils % Seg Neuts % (Manual) Lymphocytes % (Manual) Monocytes % (Manual) Eosinophils % (Manual) Nucleated RBC % Seg Neutrophils # Lymphocytes # (Manual) Monocytes # (Manual) Eosinophils # (Manual) PT INR APTT POC ABG pH 7.225 L ABG pH POC ABG pCO2 > 70 H POC ABG pO2 ABG pO2 ABG HCO3 ABG O2 Saturation ABG Base Excess ABG Hemoglobin Oxyhemoglobin Sodium 151 H Potassium 5.1 H Chloride Carbon Dioxide BUN 64 H Creatinine 3.5 H Glucose 117 H POC Glucose 141 H Uric Acid Calcium 7.5 L Phosphorus Magnesium AST 93 H ALT 65 H Total Creatine Kinase CK-MB (CK-2) Troponin T NT-Pro-B Natriuret Pep Total Protein Albumin 2.9 L Triglycerides HDL Cholesterol Urine WBC (Auto) Urine Creatinine Urine Total Protein Vancomycin Trough 05/05/19 05/05/19 05/05/19 05:00 12:02 17:46 WBC 12.0 H RBC Hgb 11.3 L Hct MCV MCH 27 L MCHC 30 L RDW 18.4 H Lymph % (Auto) 7.9 L [place] % (Auto) 10.2 H Eos % (Auto) Lymph # 1.0 L [place] # 1.2 H Eos # Seg Neutrophils % 80.8 H Seg Neuts % (Manual) Lymphocytes % (Manual) Monocytes % (Manual) Eosinophils % (Manual) Nucleated RBC % Seg Neutrophils # 9.7 H Lymphocytes # (Manual) Monocytes # (Manual) Eosinophils # (Manual) PT INR APTT POC ABG pH ABG pH POC ABG pCO2 POC ABG pO2 ABG pO2 ABG HCO3 ABG O2 Saturation ABG Base Excess ABG Hemoglobin Oxyhemoglobin Sodium Potassium Chloride Carbon Dioxide BUN Creatinine Glucose POC Glucose 125 H 112 H Uric Acid Calcium Phosphorus Magnesium AST ALT Total Creatine Kinase CK-MB (CK-2) Troponin T NT-Pro-B Natriuret Pep Total Protein Albumin Triglycerides HDL Cholesterol Urine WBC (Auto) Urine Creatinine Urine Total Protein Vancomycin Trough 05/05/19 05/06/19 05/06/19 23:42 03:58 04:45 WBC 11.4 H RBC Hgb 10.7 L Hct 34.2 L MCV MCH 27 L MCHC 31 L RDW 16.9 H Lymph % (Auto) [place] % (Auto) Eos % (Auto) Lymph # [place] # Eos # Seg Neutrophils % Seg Neuts % (Manual) Lymphocytes % (Manual) Monocytes % (Manual) Eosinophils % (Manual) Nucleated RBC % Seg Neutrophils # Lymphocytes # (Manual) Monocytes # (Manual) Eosinophils # (Manual) PT INR APTT POC ABG pH ABG pH POC ABG pCO2 62.4 H POC ABG pO2 111 H ABG pO2 ABG HCO3 ABG O2 Saturation ABG Base Excess ABG Hemoglobin Oxyhemoglobin Sodium Potassium Chloride Carbon Dioxide BUN Creatinine Glucose POC Glucose 128 H Uric Acid Calcium Phosphorus Magnesium AST ALT Total Creatine Kinase CK-MB (CK-2) Troponin T NT-Pro-B Natriuret Pep Total Protein Albumin Triglycerides HDL Cholesterol Urine WBC (Auto) Urine Creatinine Urine Total Protein Vancomycin Trough 05/06/19 05/06/19 05/06/19 04:45 05:33 12:30 WBC RBC Hgb Hct MCV MCH MCHC RDW Lymph % (Auto) [place] % (Auto) Eos % (Auto) Lymph # [place] # Eos # Seg Neutrophils % Seg Neuts % (Manual) Lymphocytes % (Manual) Monocytes % (Manual) Eosinophils % (Manual) Nucleated RBC % Seg Neutrophils # Lymphocytes # (Manual) Monocytes # (Manual) Eosinophils # (Manual) PT INR APTT POC ABG pH ABG pH POC ABG pCO2 POC ABG pO2 ABG pO2 ABG HCO3 ABG O2 Saturation ABG Base Excess ABG Hemoglobin Oxyhemoglobin Sodium 149 H Potassium Chloride Carbon Dioxide 31 H BUN 67 H Creatinine 3.2 H Glucose 125 H POC Glucose 117 H 116 H Uric Acid Calcium 7.5 L Phosphorus Magnesium AST ALT Total Creatine Kinase CK-MB (CK-2) Troponin T NT-Pro-B Natriuret Pep Total Protein Albumin Triglycerides HDL Cholesterol Urine WBC (Auto) Urine Creatinine Urine Total Protein Vancomycin Trough 05/06/19 05/06/19 05/07/19 18:34 23:16 05:22 WBC RBC Hgb Hct MCV MCH MCHC RDW Lymph % (Auto) [place] % (Auto) Eos % (Auto) Lymph # [place] # Eos # Seg Neutrophils % Seg Neuts % (Manual) Lymphocytes % (Manual) Monocytes % (Manual) Eosinophils % (Manual) Nucleated RBC % Seg Neutrophils # Lymphocytes # (Manual) Monocytes # (Manual) Eosinophils # (Manual) PT INR APTT POC ABG pH ABG pH POC ABG pCO2 POC ABG pO2 ABG pO2 ABG HCO3 ABG O2 Saturation ABG Base Excess ABG Hemoglobin Oxyhemoglobin Sodium Potassium Chloride Carbon Dioxide BUN Creatinine Glucose POC Glucose 128 H 143 H 166 H Uric Acid Calcium Phosphorus Magnesium AST ALT Total Creatine Kinase CK-MB (CK-2) Troponin T NT-Pro-B Natriuret Pep Total Protein Albumin Triglycerides HDL Cholesterol Urine WBC (Auto) Urine Creatinine Urine Total Protein Vancomycin Trough 05/07/19 05/07/19 05/07/19 06:33 07:03 09:35 WBC RBC Hgb Hct MCV MCH MCHC RDW Lymph % (Auto) [place] % (Auto) Eos % (Auto) Lymph # [place] # Eos # Seg Neutrophils % Seg Neuts % (Manual) Lymphocytes % (Manual) Monocytes % (Manual) Eosinophils % (Manual) Nucleated RBC % Seg Neutrophils # Lymphocytes # (Manual) Monocytes # (Manual) Eosinophils # (Manual) PT INR APTT POC ABG pH 7.263 L 7.288 L ABG pH POC ABG pCO2 POC ABG pO2 51 L 56 L ABG pO2 ABG HCO3 ABG O2 Saturation ABG Base Excess ABG Hemoglobin Oxyhemoglobin Sodium Potassium Chloride Carbon Dioxide BUN 76 H Creatinine 3.2 H Glucose 147 H POC Glucose Uric Acid Calcium 7.9 L Phosphorus Magnesium AST ALT Total Creatine Kinase CK-MB (CK-2) Troponin T NT-Pro-B Natriuret Pep Total Protein Albumin Triglycerides HDL Cholesterol Urine WBC (Auto) Urine Creatinine Urine Total Protein Vancomycin Trough 05/07/19 05/07/19 05/07/19 09:35 12:17 13:45 WBC 13.4 H RBC Hgb 11.6 L Hct MCV MCH 27 L MCHC 31 L RDW 17.5 H Lymph % (Auto) [place] % (Auto) Eos % (Auto) Lymph # [place] # Eos # Seg Neutrophils % Seg Neuts % (Manual) Lymphocytes % (Manual) Monocytes % (Manual) Eosinophils % (Manual) Nucleated RBC % Seg Neutrophils # Lymphocytes # (Manual) Monocytes # (Manual) Eosinophils # (Manual) PT INR APTT POC ABG pH ABG pH POC ABG pCO2 POC ABG pO2 ABG pO2 ABG HCO3 ABG O2 Saturation ABG Base Excess ABG Hemoglobin Oxyhemoglobin Sodium Potassium Chloride Carbon Dioxide BUN Creatinine Glucose POC Glucose 130 H Uric Acid 18.0 H Calcium Phosphorus Magnesium AST ALT Total Creatine Kinase CK-MB (CK-2) Troponin T NT-Pro-B Natriuret Pep Total Protein Albumin Triglycerides HDL Cholesterol Urine WBC (Auto) Urine Creatinine Urine Total Protein Vancomycin Trough 05/07/19 05/07/19 05/08/19 17:39 22:40 05:06 WBC RBC Hgb Hct MCV MCH MCHC RDW Lymph % (Auto) [place] % (Auto) Eos % (Auto) Lymph # [place] # Eos # Seg Neutrophils % Seg Neuts % (Manual) Lymphocytes % (Manual) Monocytes % (Manual) Eosinophils % (Manual) Nucleated RBC % Seg Neutrophils # Lymphocytes # (Manual) Monocytes # (Manual) Eosinophils # (Manual) PT INR APTT POC ABG pH ABG pH POC ABG pCO2 POC ABG pO2 ABG pO2 ABG HCO3 ABG O2 Saturation ABG Base Excess ABG Hemoglobin Oxyhemoglobin Sodium Potassium Chloride Carbon Dioxide BUN Creatinine Glucose POC Glucose 116 H 148 H Uric Acid Calcium Phosphorus Magnesium AST ALT Total Creatine Kinase CK-MB (CK-2) Troponin T NT-Pro-B Natriuret Pep Total Protein Albumin Triglycerides HDL Cholesterol Urine WBC (Auto) Urine Creatinine 292.8 H Urine Total Protein 269 H Vancomycin Trough 05/08/19 05/08/19 05/08/19 05:32 11:28 13:48 WBC RBC Hgb Hct MCV MCH MCHC RDW Lymph % (Auto) [place] % (Auto) Eos % (Auto) Lymph # [place] # Eos # Seg Neutrophils % Seg Neuts % (Manual) Lymphocytes % (Manual) Monocytes % (Manual) Eosinophils % (Manual) Nucleated RBC % Seg Neutrophils # Lymphocytes # (Manual) Monocytes # (Manual) Eosinophils # (Manual) PT INR APTT POC ABG pH ABG pH POC ABG pCO2 45.4 H POC ABG pO2 64 L ABG pO2 ABG HCO3 ABG O2 Saturation ABG Base Excess ABG Hemoglobin Oxyhemoglobin Sodium Potassium Chloride Carbon Dioxide BUN 73 H Creatinine 2.7 H Glucose 127 H POC Glucose 107 H Uric Acid Calcium 7.6 L Phosphorus Magnesium AST ALT Total Creatine Kinase CK-MB (CK-2) Troponin T NT-Pro-B Natriuret Pep Total Protein Albumin Triglycerides HDL Cholesterol Urine WBC (Auto) Urine Creatinine Urine Total Protein Vancomycin Trough 05/08/19 05/09/19 05/09/19 17:48 04:50 04:53 WBC RBC 3.07 L Hgb 8.5 L D Hct 29.3 L D MCV 96 H MCH MCHC 29 L RDW 18.1 H Lymph % (Auto) [place] % (Auto) Eos % (Auto) Lymph # [place] # Eos # Seg Neutrophils % Seg Neuts % (Manual) Lymphocytes % (Manual) Monocytes % (Manual) Eosinophils % (Manual) Nucleated RBC % Seg Neutrophils # Lymphocytes # (Manual) Monocytes # (Manual) Eosinophils # (Manual) PT INR APTT POC ABG pH 7.316 L ABG pH POC ABG pCO2 66.0 H POC ABG pO2 69 L ABG pO2 ABG HCO3 ABG O2 Saturation ABG Base Excess ABG Hemoglobin Oxyhemoglobin Sodium Potassium Chloride Carbon Dioxide BUN Creatinine Glucose POC Glucose 155 H Uric Acid Calcium Phosphorus Magnesium AST ALT Total Creatine Kinase CK-MB (CK-2) Troponin T NT-Pro-B Natriuret Pep Total Protein Albumin Triglycerides HDL Cholesterol Urine WBC (Auto) Urine Creatinine Urine Total Protein Vancomycin Trough 05/09/19 05/09/19 05/09/19 05:46 07:24 12:10 WBC RBC Hgb Hct MCV MCH MCHC RDW Lymph % (Auto) [place] % (Auto) Eos % (Auto) Lymph # [place] # Eos # Seg Neutrophils % Seg Neuts % (Manual) Lymphocytes % (Manual) Monocytes % (Manual) Eosinophils % (Manual) Nucleated RBC % Seg Neutrophils # Lymphocytes # (Manual) Monocytes # (Manual) Eosinophils # (Manual) PT INR APTT POC ABG pH ABG pH POC ABG pCO2 POC ABG pO2 ABG pO2 ABG HCO3 ABG O2 Saturation ABG Base Excess ABG Hemoglobin Oxyhemoglobin Sodium Potassium Chloride Carbon Dioxide BUN 73 H Creatinine 2.4 H Glucose 153 H POC Glucose 123 H 148 H Uric Acid Calcium 8.2 L Phosphorus Magnesium AST 45 H ALT Total Creatine Kinase CK-MB (CK-2) Troponin T NT-Pro-B Natriuret Pep Total Protein 6.0 L Albumin 1.9 L Triglycerides HDL Cholesterol Urine WBC (Auto) Urine Creatinine Urine Total Protein Vancomycin Trough 05/09/19 05/09/19 05/10/19 18:23 23:26 04:52 WBC RBC Hgb Hct MCV MCH MCHC RDW Lymph % (Auto) [place] % (Auto) Eos % (Auto) Lymph # [place] # Eos # Seg Neutrophils % Seg Neuts % (Manual) Lymphocytes % (Manual) Monocytes % (Manual) Eosinophils % (Manual) Nucleated RBC % Seg Neutrophils # Lymphocytes # (Manual) Monocytes # (Manual) Eosinophils # (Manual) PT INR APTT POC ABG pH 7.305 L ABG pH POC ABG pCO2 62.6 H POC ABG pO2 ABG pO2 ABG HCO3 ABG O2 Saturation ABG Base Excess ABG Hemoglobin Oxyhemoglobin Sodium Potassium Chloride Carbon Dioxide BUN Creatinine Glucose POC Glucose 147 H 121 H Uric Acid Calcium Phosphorus Magnesium AST ALT Total Creatine Kinase CK-MB (CK-2) Troponin T NT-Pro-B Natriuret Pep Total Protein Albumin Triglycerides HDL Cholesterol Urine WBC (Auto) Urine Creatinine Urine Total Protein Vancomycin Trough 05/10/19 05/10/19 05/10/19 05:00 05:00 05:50 WBC RBC Hgb 10.3 L Hct 33.7 L MCV MCH 27 L MCHC 31 L RDW 17.0 H Lymph % (Auto) [place] % (Auto) Eos % (Auto) Lymph # [place] # Eos # Seg Neutrophils % Seg Neuts % (Manual) Lymphocytes % (Manual) Monocytes % (Manual) Eosinophils % (Manual) Nucleated RBC % Seg Neutrophils # Lymphocytes # (Manual) Monocytes # (Manual) Eosinophils # (Manual) PT INR APTT POC ABG pH ABG pH POC ABG pCO2 POC ABG pO2 ABG pO2 ABG HCO3 ABG O2 Saturation ABG Base Excess ABG Hemoglobin Oxyhemoglobin Sodium 147 H Potassium Chloride Carbon Dioxide BUN 70 H Creatinine 2.6 H Glucose 155 H POC Glucose 158 H Uric Acid Calcium 8.2 L Phosphorus Magnesium AST ALT Total Creatine Kinase CK-MB (CK-2) Troponin T NT-Pro-B Natriuret Pep Total Protein 6.1 L Albumin 2.5 L Triglycerides HDL Cholesterol Urine WBC (Auto) Urine Creatinine Urine Total Protein Vancomycin Trough 05/10/19 05/11/19 05/11/19 13:14 07:26 11:40 WBC RBC Hgb Hct MCV MCH MCHC RDW Lymph % (Auto) [place] % (Auto) Eos % (Auto) Lymph # [place] # Eos # Seg Neutrophils % Seg Neuts % (Manual) Lymphocytes % (Manual) Monocytes % (Manual) Eosinophils % (Manual) Nucleated RBC % Seg Neutrophils # Lymphocytes # (Manual) Monocytes # (Manual) Eosinophils # (Manual) PT INR APTT POC ABG pH ABG pH POC ABG pCO2 48.0 H POC ABG pO2 58 L ABG pO2 ABG HCO3 ABG O2 Saturation ABG Base Excess ABG Hemoglobin Oxyhemoglobin Sodium 147 H Potassium Chloride 107.2 H Carbon Dioxide BUN 67 H Creatinine 2.6 H Glucose 121 H POC Glucose 159 H Uric Acid Calcium Phosphorus Magnesium AST ALT Total Creatine Kinase CK-MB (CK-2) Troponin T NT-Pro-B Natriuret Pep Total Protein Albumin Triglycerides HDL Cholesterol Urine WBC (Auto) Urine Creatinine Urine Total Protein Vancomycin Trough 12/05/11/19 05/12/19 18:13 23:46 04:40 WBC RBC Hgb Hct MCV MCH MCHC RDW Lymph % (Auto) [place] % (Auto) Eos % (Auto) Lymph # [place] # Eos # Seg Neutrophils % Seg Neuts % (Manual) Lymphocytes % (Manual) Monocytes % (Manual) Eosinophils % (Manual) Nucleated RBC % Seg Neutrophils # Lymphocytes # (Manual) Monocytes # (Manual) Eosinophils # (Manual) PT INR APTT POC ABG pH ABG pH 7.264 L POC ABG pCO2 POC ABG pO2 ABG pO2 66.8 L ABG HCO3 31.0 H ABG O2 Saturation 92.0 L ABG Base Excess ABG Hemoglobin 10.3 L Oxyhemoglobin 90.1 L Sodium Potassium Chloride Carbon Dioxide BUN Creatinine Glucose POC Glucose 120 H 121 H Uric Acid Calcium Phosphorus Magnesium AST ALT Total Creatine Kinase CK-MB (CK-2) Troponin T NT-Pro-B Natriuret Pep Total Protein Albumin Triglycerides HDL Cholesterol Urine WBC (Auto) Urine Creatinine Urine Total Protein Vancomycin Trough 05/12/19 05/12/19 05/12/19 04:45 04:45 11:14 WBC RBC Hgb 10.2 L Hct 32.4 L MCV MCH MCHC 31 L RDW 17.2 H Lymph % (Auto) [place] % (Auto) Eos % (Auto) Lymph # [place] # Eos # Seg Neutrophils % Seg Neuts % (Manual) Lymphocytes % (Manual) Monocytes % (Manual) Eosinophils % (Manual) Nucleated RBC % Seg Neutrophils # Lymphocytes # (Manual) Monocytes # (Manual) Eosinophils # (Manual) PT INR APTT POC ABG pH 7.284 L ABG pH POC ABG pCO2 67.8 H POC ABG pO2 ABG pO2 ABG HCO3 ABG O2 Saturation ABG Base Excess ABG Hemoglobin Oxyhemoglobin Sodium Potassium Chloride Carbon Dioxide BUN 63 H Creatinine 2.4 H Glucose 110 H POC Glucose Uric Acid Calcium Phosphorus Magnesium AST ALT Total Creatine Kinase CK-MB (CK-2) Troponin T NT-Pro-B Natriuret Pep Total Protein Albumin Triglycerides HDL Cholesterol Urine WBC (Auto) Urine Creatinine Urine Total Protein Vancomycin Trough 05/12/19 05/12/19 05/13/19 11:44 23:11 04:30 WBC RBC Hgb Hct MCV MCH MCHC RDW Lymph % (Auto) [place] % (Auto) Eos % (Auto) Lymph # [place] # Eos # Seg Neutrophils % Seg Neuts % (Manual) Lymphocytes % (Manual) Monocytes % (Manual) Eosinophils % (Manual) Nucleated RBC % Seg Neutrophils # Lymphocytes # (Manual) Monocytes # (Manual) Eosinophils # (Manual) PT INR APTT POC ABG pH ABG pH 7.288 L POC ABG pCO2 POC ABG pO2 ABG pO2 109.7 H ABG HCO3 30.9 H ABG O2 Saturation ABG Base Excess 3.2 H ABG Hemoglobin 9.6 L Oxyhemoglobin Sodium Potassium Chloride Carbon Dioxide BUN Creatinine Glucose POC Glucose 126 H 147 H Uric Acid Calcium Phosphorus Magnesium AST ALT Total Creatine Kinase CK-MB (CK-2) Troponin T NT-Pro-B Natriuret Pep Total Protein Albumin Triglycerides HDL Cholesterol Urine WBC (Auto) Urine Creatinine Urine Total Protein Vancomycin Trough 05/13/19 05/13/19 05/14/19 06:27 11:58 04:00 WBC RBC 3.16 L Hgb 9.3 L Hct 27.9 L MCV MCH MCHC RDW 17.1 H Lymph % (Auto) [place] % (Auto) Eos % (Auto) Lymph # [place] # Eos # Seg Neutrophils % Seg Neuts % (Manual) Lymphocytes % (Manual) Monocytes % (Manual) Eosinophils % (Manual) Nucleated RBC % Seg Neutrophils # Lymphocytes # (Manual) Monocytes # (Manual) Eosinophils # (Manual) PT INR APTT POC ABG pH ABG pH POC ABG pCO2 POC ABG pO2 ABG pO2 ABG HCO3 ABG O2 Saturation ABG Base Excess ABG Hemoglobin Oxyhemoglobin Sodium Potassium Chloride Carbon Dioxide BUN Creatinine Glucose POC Glucose 113 H 130 H Uric Acid Calcium Phosphorus Magnesium AST ALT Total Creatine Kinase CK-MB (CK-2) Troponin T NT-Pro-B Natriuret Pep Total Protein Albumin Triglycerides HDL Cholesterol Urine WBC (Auto) Urine Creatinine Urine Total Protein Vancomycin Trough 05/14/19 05/14/19 05/14/19 04:00 04:34 05:32 WBC RBC Hgb Hct MCV MCH MCHC RDW Lymph % (Auto) [place] % (Auto) Eos % (Auto) Lymph # [place] # Eos # Seg Neutrophils % Seg Neuts % (Manual) Lymphocytes % (Manual) Monocytes % (Manual) Eosinophils % (Manual) Nucleated RBC % Seg Neutrophils # Lymphocytes # (Manual) Monocytes # (Manual) Eosinophils # (Manual) PT INR APTT POC ABG pH 7.328 L ABG pH POC ABG pCO2 61.7 H POC ABG pO2 ABG pO2 ABG HCO3 ABG O2 Saturation ABG Base Excess ABG Hemoglobin Oxyhemoglobin Sodium 135 L D Potassium Chloride Carbon Dioxide BUN 57 H Creatinine 2.2 H Glucose 115 H POC Glucose 115 H Uric Acid Calcium 8.1 L Phosphorus Magnesium AST ALT Total Creatine Kinase CK-MB (CK-2) Troponin T NT-Pro-B Natriuret Pep Total Protein Albumin Triglycerides HDL Cholesterol Urine WBC (Auto) Urine Creatinine Urine Total Protein Vancomycin Trough 05/14/19 05/15/19 05/15/19 12:11 05:10 05:24 WBC RBC Hgb Hct MCV MCH MCHC RDW Lymph % (Auto) [place] % (Auto) Eos % (Auto) Lymph # [place] # Eos # Seg Neutrophils % Seg Neuts % (Manual) Lymphocytes % (Manual) Monocytes % (Manual) Eosinophils % (Manual) Nucleated RBC % Seg Neutrophils # Lymphocytes # (Manual) Monocytes # (Manual) Eosinophils # (Manual) PT INR APTT POC ABG pH ABG pH 7.342 L POC ABG pCO2 POC ABG pO2 ABG pO2 79.1 L ABG HCO3 28.2 H ABG O2 Saturation ABG Base Excess ABG Hemoglobin 7.0 L Oxyhemoglobin 94.4 L Sodium Potassium Chloride Carbon Dioxide BUN Creatinine Glucose POC Glucose 110 H 116 H Uric Acid Calcium Phosphorus Magnesium AST ALT Total Creatine Kinase CK-MB (CK-2) Troponin T NT-Pro-B Natriuret Pep Total Protein Albumin Triglycerides HDL Cholesterol Urine WBC (Auto) Urine Creatinine Urine Total Protein Vancomycin Trough 05/15/19 05/15/19 05/16/19 09:00 18:12 04:50 WBC RBC Hgb Hct MCV MCH MCHC RDW Lymph % (Auto) [place] % (Auto) Eos % (Auto) Lymph # [place] # Eos # Seg Neutrophils % Seg Neuts % (Manual) Lymphocytes % (Manual) Monocytes % (Manual) Eosinophils % (Manual) Nucleated RBC % Seg Neutrophils # Lymphocytes # (Manual) Monocytes # (Manual) Eosinophils # (Manual) PT INR APTT POC ABG pH ABG pH 7.250 L POC ABG pCO2 POC ABG pO2 ABG pO2 76.4 L ABG HCO3 ABG O2 Saturation 94.6 L ABG Base Excess -3.1 L ABG Hemoglobin 9.7 L Oxyhemoglobin 92.4 L Sodium Potassium Chloride Carbon Dioxide BUN Creatinine Glucose POC Glucose 110 H Uric Acid Calcium Phosphorus Magnesium AST ALT Total Creatine Kinase CK-MB (CK-2) Troponin T NT-Pro-B Natriuret Pep Total Protein Albumin Triglycerides HDL Cholesterol Urine WBC (Auto) Urine Creatinine Urine Total Protein Vancomycin Trough 20.5 H 05/16/19 05/16/19 05/17/19 05:50 05:50 04:20 WBC RBC 3.36 L 3.44 L Hgb 9.4 L 9.3 L Hct 29.1 L 29.7 L MCV MCH 27 L MCHC 31 L RDW 17.6 H 17.6 H Lymph % (Auto) [place] % (Auto) Eos % (Auto) Lymph # [place] # Eos # Seg Neutrophils % Seg Neuts % (Manual) 77.0 H Lymphocytes % (Manual) 5.0 L Monocytes % (Manual) Eosinophils % (Manual) 10.0 H Nucleated RBC % Seg Neutrophils # Lymphocytes # (Manual) 0.5 L Monocytes # (Manual) Eosinophils # (Manual) 0.9 H PT INR APTT POC ABG pH ABG pH POC ABG pCO2 POC ABG pO2 ABG pO2 ABG HCO3 ABG O2 Saturation ABG Base Excess ABG Hemoglobin Oxyhemoglobin Sodium Potassium Chloride Carbon Dioxide BUN 83 H Creatinine 4.4 H D Glucose 118 H POC Glucose Uric Acid Calcium Phosphorus Magnesium AST ALT Total Creatine Kinase CK-MB (CK-2) Troponin T NT-Pro-B Natriuret Pep Total Protein Albumin Triglycerides HDL Cholesterol Urine WBC (Auto) Urine Creatinine Urine Total Protein Vancomycin Trough 05/17/19 05/17/19 05/18/19 04:30 Unknown 01:50 WBC RBC 3.49 L Hgb 9.4 L Hct 30.0 L MCV MCH 27 L MCHC 31 L RDW 17.8 H Lymph % (Auto) 7.9 L [place] % (Auto) 15.4 H Eos % (Auto) 6.3 H Lymph # 0.7 L [place] # 1.4 H Eos # 0.6 H Seg Neutrophils % 70.2 H Seg Neuts % (Manual) Lymphocytes % (Manual) Monocytes % (Manual) Eosinophils % (Manual) Nucleated RBC % Seg Neutrophils # Lymphocytes # (Manual) Monocytes # (Manual) Eosinophils # (Manual) PT INR APTT POC ABG pH ABG pH 7.272 L POC ABG pCO2 POC ABG pO2 ABG pO2 75.7 L ABG HCO3 ABG O2 Saturation 93.8 L ABG Base Excess -3.0 L ABG Hemoglobin 7.8 L Oxyhemoglobin 91.6 L Sodium Potassium 5.2 H Chloride Carbon Dioxide BUN 96 H Creatinine 5.7 H Glucose 112 H POC Glucose Uric Acid Calcium Phosphorus Magnesium AST ALT Total Creatine Kinase CK-MB (CK-2) Troponin T NT-Pro-B Natriuret Pep Total Protein Albumin Triglycerides 173 H HDL Cholesterol Urine WBC (Auto) Urine Creatinine Urine Total Protein Vancomycin Trough 05/18/19 05/18/19 05/18/19 01:50 04:41 05:24 WBC RBC Hgb Hct MCV MCH MCHC RDW Lymph % (Auto) [place] % (Auto) Eos % (Auto) Lymph # [place] # Eos # Seg Neutrophils % Seg Neuts % (Manual) Lymphocytes % (Manual) Monocytes % (Manual) Eosinophils % (Manual) Nucleated RBC % Seg Neutrophils # Lymphocytes # (Manual) Monocytes # (Manual) Eosinophils # (Manual) PT INR APTT POC ABG pH 7.260 L ABG pH POC ABG pCO2 54.9 H POC ABG pO2 ABG pO2 ABG HCO3 ABG O2 Saturation ABG Base Excess ABG Hemoglobin Oxyhemoglobin Sodium Potassium 5.6 H Chloride Carbon Dioxide BUN 104 H Creatinine 6.6 H Glucose 107 H POC Glucose 106 H Uric Acid Calcium Phosphorus Magnesium AST ALT Total Creatine Kinase CK-MB (CK-2) Troponin T NT-Pro-B Natriuret Pep Total Protein Albumin Triglycerides HDL Cholesterol Urine WBC (Auto) Urine Creatinine Urine Total Protein Vancomycin Trough 05/18/19 05/18/19 05/19/19 11:34 23:26 04:06 WBC RBC 3.22 L Hgb 8.8 L Hct 27.3 L MCV MCH 27 L MCHC RDW 17.5 H Lymph % (Auto) [place] % (Auto) Eos % (Auto) Lymph # [place] # Eos # Seg Neutrophils % Seg Neuts % (Manual) 74.0 H Lymphocytes % (Manual) 4.0 L Monocytes % (Manual) 11.0 H Eosinophils % (Manual) 7.0 H Nucleated RBC % 1.0 H Seg Neutrophils # Lymphocytes # (Manual) 0.3 L Monocytes # (Manual) 0.9 H Eosinophils # (Manual) 0.6 H PT INR APTT POC ABG pH ABG pH POC ABG pCO2 POC ABG pO2 ABG pO2 ABG HCO3 ABG O2 Saturation ABG Base Excess ABG Hemoglobin Oxyhemoglobin Sodium Potassium Chloride Carbon Dioxide BUN Creatinine Glucose POC Glucose 152 H 112 H Uric Acid Calcium Phosphorus Magnesium AST ALT Total Creatine Kinase CK-MB (CK-2) Troponin T NT-Pro-B Natriuret Pep Total Protein Albumin Triglycerides HDL Cholesterol Urine WBC (Auto) Urine Creatinine Urine Total Protein Vancomycin Trough 05/19/19 05/19/19 04:06 06:00 WBC RBC Hgb Hct MCV MCH MCHC RDW Lymph % (Auto) [place] % (Auto) Eos % (Auto) Lymph # [place] # Eos # Seg Neutrophils % Seg Neuts % (Manual) Lymphocytes % (Manual) Monocytes % (Manual) Eosinophils % (Manual) Nucleated RBC % Seg Neutrophils # Lymphocytes # (Manual) Monocytes # (Manual) Eosinophils # (Manual) PT INR APTT POC ABG pH ABG pH 7.315 L POC ABG pCO2 POC ABG pO2 ABG pO2 ABG HCO3 ABG O2 Saturation ABG Base Excess ABG Hemoglobin 6.7 L Oxyhemoglobin 94.1 L Sodium Potassium 5.2 H Chloride Carbon Dioxide 21 L BUN 110 H Creatinine 7.2 H Glucose POC Glucose Uric Acid Calcium 8.3 L Phosphorus Magnesium AST ALT Total Creatine Kinase CK-MB (CK-2) Troponin T NT-Pro-B Natriuret Pep Total Protein Albumin Triglycerides HDL Cholesterol Urine WBC (Auto) Urine Creatinine Urine Total Protein Vancomycin Trough
--- NOTE | 2019-05-19 13:43 | Event Note ---
Date: 05/19/19 Given patient's large body habitus (BMI 70+), I discussed the situation with Dr. Doe. Will attempt today to place a vascath at bedside with ultrasound guidance. If unsuccessful, will plan on permcath placement tomorrow. R/B/A discussed with family.
--- NOTE | 2019-05-19 13:45 | Post Operative Note ---
Date of procedure: 05/19/19 Pre-op diagnosis: ARF Post-op diagnosis: same Procedure: R IJ vascath placement with us guidance Anesthesia: local Surgeon: JONI QUIGLEY Estimated blood loss: minimal Condition: stable Disposition: no change
--- NOTE | 2019-05-19 13:47 | Operative Report ---
Operative Report Operative Report: EXAM: 1. Ultrasound-guided puncture of the right internal jugular vein 2. Placement of a right internal jugular vein nontunneled noncuffed hemodialysis catheter. DATE: 05/19/19 INDICATION: Acute renal failure requiring hemodialysis. MEDICATIONS: Local anesthetic (1% lidocaine). DEVICES: Dual lumen nontunneled noncuffed hemodialysis catheter [employer]TER: JONI QUIGLEY MD CONTRAST: None PROCEDURE: The risks, benefits, and alternatives were discussed and informed consent was obtained. The patient's right internal jugular vein was assessed with ultrasound at bedside and determined to be patent prior to procedure. The patient was prepped and draped in a sterile fashion. The puncture site was anesthetized. Under sonographic guidance, the right internal jugular vein was punctured with a 18-gauge micropuncture needle and a 0.035 inch wire was advanced through the needle. Over the 0.035 inch wire, dilatation was performed. The catheter was advanced over the wire. 2-0 silk suture was used to secure the catheter. The catheter was charged with heparin 1000 units per mL of space. Biopatch and tegaderm were applied. Sterile dressing applied Chest x ray was ordered and the patient tolerated the procedure without immediate post procedual complication. FINDINGS: 1. Ultrasound documented patency of the right internal jugular vein. The vessel was accessed under direct ultrasound guidance. 2. On the post procedural chest x ray, the catheter tip is appropriately placed in the SVC. IMPRESSION: 1. Successful ultrasound guided bedside placement of a right internal jugular vein nontunneled noncuffed dual lumen hemodialysis catheter.
[2019-05-19] MEDS: SODIUM CHLORIDE 0.9% 100 ML IV PRN (13:48)
--- NOTE | 2019-05-19 14:13 | XRay Report ---
CHEST 1 VIEW INDICATION: VasCath Placement. COMPARISON: Previous day. FINDINGS: Support devices: Right IJ vas catheter has its tip over the superior vena cava. No pneumothorax. Danay ining lines and tubes are unchanged. Heart: Table cardiomegaly. Lungs/Pleura: Pleural fluid, volume loss and superimposed edema remains with overall mild worsening. Additional findings: None. IMPRESSION: 1. Satisfactory Vas-Cath placement. 2. Mild worsening at the chest. Signer Name: Steven Howe MD Signed: 05/19/2019 2:09 PM Workstation Name: [employer]
--- NOTE | 2019-05-19 15:16 | Progress Note ---
Assessment and Plan 34 y/o male with acute hypoxic, hypercapnic respiratory failure currently ventilated and sedated, now with persistent fevers and seizure. 1. Neuro: EEG shows no seizures. 2. Pulm: With worsening renal function, O2 requirements increasing. Will continue PEEP at 18, FiO2 at 55%. Once FiO2 down to the 40's will start to wean again. 3. For vascath insertion. 4. Fever: Resolved now with changes in abx as per ID. 5. Day number of 16 of intubation. 6. Follow up renal and vascular recs. Total critical care time 31 minute Subjective Date of service: 05/19/19 Principal diagnosis: HF; acute hypoxemic resp failure, SIRS, CARLA Interval history: Patient remained intubated on mechanical ventilator. Worsening renal function. For Vas-Cath placement today for dialysis. Objective Vital Signs - 12hr 05/19/19 05/19/19 05/19/19 03:15 03:30 03:45 Temperature Pulse Rate 102 H 101 H 101 H Respiratory 20 13 12 Rate Blood Pressure 99/29 100/31 94/26 O2 Sat by Pulse 92 92 92 Oximetry 05/19/19 05/19/19 05/19/19 04:00 04:15 04:30 Temperature 100.8 F H Pulse Rate 100 H 104 H 103 H Respiratory 16 14 17 Rate Blood Pressure 95/30 100/31 103/34 O2 Sat by Pulse 93 92 93 Oximetry 05/19/19 05/19/19 05/19/19 04:45 05:00 05:01 Temperature Pulse Rate 101 H 102 H 100 H Respiratory 14 15 Rate Blood Pressure 94/29 93/29 93/29 O2 Sat by Pulse 93 93 101 H Oximetry 05/19/19 05/19/19 05/19/19 05:14 05:15 05:30 Temperature Pulse Rate 101 H 100 H 100 H Respiratory 20 21 Rate Blood Pressure 93/29 97/24 95/26 O2 Sat by Pulse 93 94 Oximetry 05/19/19 05/19/19 05/19/19 05:45 06:00 06:15 Temperature Pulse Rate 101 H 104 H 105 H Respiratory 13 16 17 Rate Blood Pressure 96/25 108/30 103/30 O2 Sat by Pulse 92 92 92 Oximetry 05/19/19 05/19/19 05/19/19 06:30 06:45 07:00 Temperature Pulse Rate 105 H 105 H 103 H Respiratory 20 15 12 Rate Blood Pressure 106/27 102/29 93/24 O2 Sat by Pulse 92 92 93 Oximetry 05/19/19 05/19/19 05/19/19 07:15 07:30 07:45 Temperature Pulse Rate 107 H 100 H 102 H Respiratory 13 17 20 Rate Blood Pressure 115/43 88/23 95/30 O2 Sat by Pulse 93 93 93 Oximetry 05/19/19 05/19/19 05/19/19 08:00 08:15 08:30 Temperature Pulse Rate 101 H 108 H 109 H Respiratory 17 26 H 19 Rate Blood Pressure 106/29 96/26 125/44 O2 Sat by Pulse 93 92 92 Oximetry 05/19/19 05/19/19 05/19/19 08:45 09:00 09:15 Temperature Pulse Rate 106 H 104 H 105 H Respiratory 23 15 17 Rate Blood Pressure 115/33 106/29 116/34 O2 Sat by Pulse 91 92 92 Oximetry 05/19/19 05/19/19 05/19/19 09:30 09:45 10:00 Temperature Pulse Rate 103 H 103 H 102 H Respiratory 15 16 15 Rate Blood Pressure 104/29 110/33 102/33 O2 Sat by Pulse 93 96 94 Oximetry 05/19/19 05/19/19 05/19/19 10:15 10:30 10:45 Temperature Pulse Rate 101 H 101 H 101 H Respiratory 8 L 19 19 Rate Blood Pressure 103/35 100/32 103/32 O2 Sat by Pulse 94 94 94 Oximetry 05/19/19 05/19/19 05/19/19 11:00 11:15 11:17 Temperature Pulse Rate 102 H 106 H 105 H Respiratory 16 21 Rate Blood Pressure 97/40 113/36 113/36 O2 Sat by Pulse 93 91 93 Oximetry 05/19/19 05/19/19 05/19/19 11:30 11:45 12:00 Temperature Pulse Rate 104 H 102 H 103 H Respiratory 22 23 18 Rate Blood Pressure 112/36 112/31 102/29 O2 Sat by Pulse 92 94 94 Oximetry Constitutional: other (morbidly obese male, sedated on vent, orally intubated) Eyes: non-icteric ENT: oropharynx moist, other Neck: other (extremely large in circumference) Effort: normal Ascultation: Bilateral: diminished breath sounds (secondary to body habitus) Cardiovascular: regular rate and rhythm (no mrg) Gastrointestinal: normoactive bowel sounds, non-tender, other (obese) Integumentary: other (L hand is wrapped) Extremities: no cyanosis, pink and warm, other (1+ generalized edema) Neurologic: unable to assess Psychiatric: other (unable to assess) CBC and BMP: 05/19/19 04:06 05/19/19 04:06 ABG, PT/INR, D-dimer: ABG POC ABG pH 7.260 (7.35-7.45) L 05/18/19 04:41 ABG pH 7.315 pH Units (7.350-7.450) L 05/19/19 06:00 POC ABG pCO2 54.9 (35-45) H 05/18/19 04:41 ABG pCO2 49.1 mm Hg 05/19/19 06:00 POC ABG pO2 80 (80-105) 05/18/19 04:41 ABG pO2 80.6 mm Hg (80.0-90.0) 05/19/19 06:00 POC ABG HCO3 24.6 (22-26 mml/L) 05/18/19 04:41 POC ABG Total CO2 26 (23-27mmol/L) 05/18/19 04:41 POC ABG O2 Sat 93 05/18/19 04:41 ABG O2 Saturation 96.1 % (95.0-99.0) 05/19/19 06:00 PT/INR, D-dimer PT 15.4 Sec. (12.2-14.9) H 05/01/19 Unknown INR 1.23 (0.87-1.13) H 05/01/19 Unknown Abnormal lab findings: Abnormal Labs 05/01/19 05/01/19 05/01/19 17:50 19:26 22:36 WBC RBC Hgb Hct MCV MCH MCHC RDW Lymph % (Auto) [place] % (Auto) Eos % (Auto) Lymph # [place] # Eos # Seg Neutrophils % Seg Neuts % (Manual) Lymphocytes % (Manual) Monocytes % (Manual) Eosinophils % (Manual) Nucleated RBC % Seg Neutrophils # Lymphocytes # (Manual) Monocytes # (Manual) Eosinophils # (Manual) PT INR APTT POC ABG pH 7.272 L 7.331 L ABG pH POC ABG pCO2 52.8 H POC ABG pO2 ABG pO2 ABG HCO3 ABG O2 Saturation ABG Base Excess ABG Hemoglobin Oxyhemoglobin Sodium 136 L Potassium 6.5 H* Chloride 97.2 L Carbon Dioxide BUN 60 H Creatinine Glucose 113 H POC Glucose Uric Acid Calcium Phosphorus Magnesium 2.40 H AST 139 H ALT 154 H Total Creatine Kinase CK-MB (CK-2) Troponin T NT-Pro-B Natriuret Pep Total Protein Albumin 3.8 L Triglycerides HDL Cholesterol Urine WBC (Auto) Urine Creatinine Urine Total Protein Vancomycin Trough 05/01/19 05/01/19 05/01/19 Unknown Unknown Unknown WBC 16.1 H RBC Hgb Hct MCV MCH MCHC RDW 17.2 H Lymph % (Auto) [place] % (Auto) 9.6 H Eos % (Auto) Lymph # [place] # 1.5 H Eos # Seg Neutrophils % 73.0 H Seg Neuts % (Manual) Lymphocytes % (Manual) Monocytes % (Manual) Eosinophils % (Manual) Nucleated RBC % Seg Neutrophils # 11.7 H Lymphocytes # (Manual) Monocytes # (Manual) Eosinophils # (Manual) PT 15.4 H INR 1.23 H APTT 22.7 L POC ABG pH ABG pH POC ABG pCO2 POC ABG pO2 ABG pO2 ABG HCO3 ABG O2 Saturation ABG Base Excess ABG Hemoglobin Oxyhemoglobin Sodium Potassium Chloride Carbon Dioxide BUN Creatinine Glucose POC Glucose Uric Acid Calcium Phosphorus Magnesium AST ALT Total Creatine Kinase CK-MB (CK-2) Troponin T NT-Pro-B Natriuret Pep 6831 H Total Protein Albumin Triglycerides HDL Cholesterol Urine WBC (Auto) Urine Creatinine Urine Total Protein Vancomycin Trough 05/01/19 05/02/19 05/02/19 Unknown 00:06 00:06 WBC RBC Hgb Hct MCV MCH MCHC RDW Lymph % (Auto) [place] % (Auto) Eos % (Auto) Lymph # [place] # Eos # Seg Neutrophils % Seg Neuts % (Manual) Lymphocytes % (Manual) Monocytes % (Manual) Eosinophils % (Manual) Nucleated RBC % Seg Neutrophils # Lymphocytes # (Manual) Monocytes # (Manual) Eosinophils # (Manual) PT INR APTT POC ABG pH ABG pH POC ABG pCO2 POC ABG pO2 ABG pO2 ABG HCO3 ABG O2 Saturation ABG Base Excess ABG Hemoglobin Oxyhemoglobin Sodium Potassium Chloride Carbon Dioxide BUN Creatinine Glucose POC Glucose Uric Acid Calcium Phosphorus 4.90 H Magnesium AST ALT Total Creatine Kinase 226 H CK-MB (CK-2) 5.7 H Troponin T 0.044 H NT-Pro-B Natriuret Pep Total Protein Albumin Triglycerides 182 H HDL Cholesterol 18 L Urine WBC (Auto) Urine Creatinine Urine Total Protein Vancomycin Trough 05/02/19 05/02/19 05/02/19 02:08 04:40 04:41 WBC 17.6 H RBC Hgb Hct MCV MCH 27 L MCHC RDW 17.4 H Lymph % (Auto) 10.2 L [place] % (Auto) 11.0 H Eos % (Auto) Lymph # [place] # 1.9 H Eos # Seg Neutrophils % 78.0 H Seg Neuts % (Manual) Lymphocytes % (Manual) Monocytes % (Manual) Eosinophils % (Manual) Nucleated RBC % Seg Neutrophils # 13.8 H Lymphocytes # (Manual) Monocytes # (Manual) Eosinophils # (Manual) PT INR APTT POC ABG pH ABG pH POC ABG pCO2 46.8 H POC ABG pO2 63 L ABG pO2 ABG HCO3 ABG O2 Saturation ABG Base Excess ABG Hemoglobin Oxyhemoglobin Sodium Potassium Chloride 96.3 L Carbon Dioxide BUN 63 H Creatinine 1.7 H Glucose POC Glucose Uric Acid Calcium Phosphorus Magnesium AST ALT Total Creatine Kinase CK-MB (CK-2) Troponin T NT-Pro-B Natriuret Pep Total Protein Albumin Triglycerides HDL Cholesterol Urine WBC (Auto) Urine Creatinine Urine Total Protein Vancomycin Trough 05/02/19 05/02/19 05/02/19 04:41 04:41 16:05 WBC RBC Hgb Hct MCV MCH MCHC RDW Lymph % (Auto) [place] % (Auto) Eos % (Auto) Lymph # [place] # Eos # Seg Neutrophils % Seg Neuts % (Manual) Lymphocytes % (Manual) Monocytes % (Manual) Eosinophils % (Manual) Nucleated RBC % Seg Neutrophils # Lymphocytes # (Manual) Monocytes # (Manual) Eosinophils # (Manual) PT INR APTT POC ABG pH ABG pH POC ABG pCO2 POC ABG pO2 ABG pO2 66.6 L ABG HCO3 31.9 H ABG O2 Saturation 92.5 L ABG Base Excess 5.8 H ABG Hemoglobin 13.3 L Oxyhemoglobin 90.6 L Sodium Potassium Chloride 97.2 L Carbon Dioxide BUN 61 H Creatinine 1.8 H Glucose POC Glucose Uric Acid Calcium Phosphorus Magnesium AST ALT Total Creatine Kinase CK-MB (CK-2) 5.2 H Troponin T 0.067 H D NT-Pro-B Natriuret Pep Total Protein Albumin Triglycerides HDL Cholesterol Urine WBC (Auto) Urine Creatinine Urine Total Protein Vancomycin Trough 05/02/19 05/03/19 05/03/19 20:39 04:35 05:05 WBC 11.8 H RBC Hgb Hct MCV MCH 27 L MCHC 31 L RDW 17.2 H Lymph % (Auto) [place] % (Auto) Eos % (Auto) Lymph # [place] # Eos # Seg Neutrophils % Seg Neuts % (Manual) Lymphocytes % (Manual) Monocytes % (Manual) Eosinophils % (Manual) Nucleated RBC % Seg Neutrophils # Lymphocytes # (Manual) Monocytes # (Manual) Eosinophils # (Manual) PT INR APTT POC ABG pH ABG pH POC ABG pCO2 53.6 H 54.0 H POC ABG pO2 55 L 63 L ABG pO2 ABG HCO3 ABG O2 Saturation ABG Base Excess ABG Hemoglobin Oxyhemoglobin Sodium Potassium Chloride Carbon Dioxide BUN Creatinine Glucose POC Glucose Uric Acid Calcium Phosphorus Magnesium AST ALT Total Creatine Kinase CK-MB (CK-2) Troponin T NT-Pro-B Natriuret Pep Total Protein Albumin Triglycerides HDL Cholesterol Urine WBC (Auto) Urine Creatinine Urine Total Protein Vancomycin Trough 05/03/19 05/03/19 05/03/19 05:05 10:55 16:48 WBC RBC Hgb Hct MCV MCH MCHC RDW Lymph % (Auto) [place] % (Auto) Eos % (Auto) Lymph # [place] # Eos # Seg Neutrophils % Seg Neuts % (Manual) Lymphocytes % (Manual) Monocytes % (Manual) Eosinophils % (Manual) Nucleated RBC % Seg Neutrophils # Lymphocytes # (Manual) Monocytes # (Manual) Eosinophils # (Manual) PT INR APTT POC ABG pH 7.604 H ABG pH POC ABG pCO2 POC ABG pO2 58 L ABG pO2 ABG HCO3 ABG O2 Saturation ABG Base Excess ABG Hemoglobin Oxyhemoglobin Sodium Potassium Chloride Carbon Dioxide BUN 52 H Creatinine 1.9 H Glucose 103 H POC Glucose Uric Acid Calcium Phosphorus Magnesium AST ALT Total Creatine Kinase CK-MB (CK-2) Troponin T NT-Pro-B Natriuret Pep Total Protein Albumin Triglycerides HDL Cholesterol Urine WBC (Auto) 33.0 H Urine Creatinine Urine Total Protein Vancomycin Trough 05/04/19 05/04/19 05/04/19 04:49 06:50 06:50 WBC 16.0 H RBC Hgb Hct MCV MCH 27 L MCHC 31 L RDW 17.8 H Lymph % (Auto) [place] % (Auto) Eos % (Auto) Lymph # [place] # Eos # Seg Neutrophils % Seg Neuts % (Manual) Lymphocytes % (Manual) Monocytes % (Manual) Eosinophils % (Manual) Nucleated RBC % Seg Neutrophils # Lymphocytes # (Manual) Monocytes # (Manual) Eosinophils # (Manual) PT INR APTT POC ABG pH 7.273 L ABG pH POC ABG pCO2 POC ABG pO2 ABG pO2 ABG HCO3 ABG O2 Saturation ABG Base Excess ABG Hemoglobin Oxyhemoglobin Sodium 148 H Potassium 5.5 H Chloride Carbon Dioxide BUN 53 H Creatinine 3.3 H D Glucose 106 H POC Glucose Uric Acid Calcium 8.3 L Phosphorus Magnesium AST ALT Total Creatine Kinase CK-MB (CK-2) Troponin T NT-Pro-B Natriuret Pep Total Protein Albumin Triglycerides HDL Cholesterol Urine WBC (Auto) Urine Creatinine Urine Total Protein Vancomycin Trough 05/05/19 05/05/19 05/05/19 00:05 04:30 05:00 WBC RBC Hgb Hct MCV MCH MCHC RDW Lymph % (Auto) [place] % (Auto) Eos % (Auto) Lymph # [place] # Eos # Seg Neutrophils % Seg Neuts % (Manual) Lymphocytes % (Manual) Monocytes % (Manual) Eosinophils % (Manual) Nucleated RBC % Seg Neutrophils # Lymphocytes # (Manual) Monocytes # (Manual) Eosinophils # (Manual) PT INR APTT POC ABG pH 7.225 L ABG pH POC ABG pCO2 > 70 H POC ABG pO2 ABG pO2 ABG HCO3 ABG O2 Saturation ABG Base Excess ABG Hemoglobin Oxyhemoglobin Sodium 151 H Potassium 5.1 H Chloride Carbon Dioxide BUN 64 H Creatinine 3.5 H Glucose 117 H POC Glucose 141 H Uric Acid Calcium 7.5 L Phosphorus Magnesium AST 93 H ALT 65 H Total Creatine Kinase CK-MB (CK-2) Troponin T NT-Pro-B Natriuret Pep Total Protein Albumin 2.9 L Triglycerides HDL Cholesterol Urine WBC (Auto) Urine Creatinine Urine Total Protein Vancomycin Trough 05/05/19 05/05/19 05/05/19 05:00 12:02 17:46 WBC 12.0 H RBC Hgb 11.3 L Hct MCV MCH 27 L MCHC 30 L RDW 18.4 H Lymph % (Auto) 7.9 L [place] % (Auto) 10.2 H Eos % (Auto) Lymph # 1.0 L [place] # 1.2 H Eos # Seg Neutrophils % 80.8 H Seg Neuts % (Manual) Lymphocytes % (Manual) Monocytes % (Manual) Eosinophils % (Manual) Nucleated RBC % Seg Neutrophils # 9.7 H Lymphocytes # (Manual) Monocytes # (Manual) Eosinophils # (Manual) PT INR APTT POC ABG pH ABG pH POC ABG pCO2 POC ABG pO2 ABG pO2 ABG HCO3 ABG O2 Saturation ABG Base Excess ABG Hemoglobin Oxyhemoglobin Sodium Potassium Chloride Carbon Dioxide BUN Creatinine Glucose POC Glucose 125 H 112 H Uric Acid Calcium Phosphorus Magnesium AST ALT Total Creatine Kinase CK-MB (CK-2) Troponin T NT-Pro-B Natriuret Pep Total Protein Albumin Triglycerides HDL Cholesterol Urine WBC (Auto) Urine Creatinine Urine Total Protein Vancomycin Trough 05/05/19 05/06/19 05/06/19 23:42 03:58 04:45 WBC 11.4 H RBC Hgb 10.7 L Hct 34.2 L MCV MCH 27 L MCHC 31 L RDW 16.9 H Lymph % (Auto) [place] % (Auto) Eos % (Auto) Lymph # [place] # Eos # Seg Neutrophils % Seg Neuts % (Manual) Lymphocytes % (Manual) Monocytes % (Manual) Eosinophils % (Manual) Nucleated RBC % Seg Neutrophils # Lymphocytes # (Manual) Monocytes # (Manual) Eosinophils # (Manual) PT INR APTT POC ABG pH ABG pH POC ABG pCO2 62.4 H POC ABG pO2 111 H ABG pO2 ABG HCO3 ABG O2 Saturation ABG Base Excess ABG Hemoglobin Oxyhemoglobin Sodium Potassium Chloride Carbon Dioxide BUN Creatinine Glucose POC Glucose 128 H Uric Acid Calcium Phosphorus Magnesium AST ALT Total Creatine Kinase CK-MB (CK-2) Troponin T NT-Pro-B Natriuret Pep Total Protein Albumin Triglycerides HDL Cholesterol Urine WBC (Auto) Urine Creatinine Urine Total Protein Vancomycin Trough 05/06/19 05/06/19 05/06/19 04:45 05:33 12:30 WBC RBC Hgb Hct MCV MCH MCHC RDW Lymph % (Auto) [place] % (Auto) Eos % (Auto) Lymph # [place] # Eos # Seg Neutrophils % Seg Neuts % (Manual) Lymphocytes % (Manual) Monocytes % (Manual) Eosinophils % (Manual) Nucleated RBC % Seg Neutrophils # Lymphocytes # (Manual) Monocytes # (Manual) Eosinophils # (Manual) PT INR APTT POC ABG pH ABG pH POC ABG pCO2 POC ABG pO2 ABG pO2 ABG HCO3 ABG O2 Saturation ABG Base Excess ABG Hemoglobin Oxyhemoglobin Sodium 149 H Potassium Chloride Carbon Dioxide 31 H BUN 67 H Creatinine 3.2 H Glucose 125 H POC Glucose 117 H 116 H Uric Acid Calcium 7.5 L Phosphorus Magnesium AST ALT Total Creatine Kinase CK-MB (CK-2) Troponin T NT-Pro-B Natriuret Pep Total Protein Albumin Triglycerides HDL Cholesterol Urine WBC (Auto) Urine Creatinine Urine Total Protein Vancomycin Trough 05/06/19 05/06/19 05/07/19 18:34 23:16 05:22 WBC RBC Hgb Hct MCV MCH MCHC RDW Lymph % (Auto) [place] % (Auto) Eos % (Auto) Lymph # [place] # Eos # Seg Neutrophils % Seg Neuts % (Manual) Lymphocytes % (Manual) Monocytes % (Manual) Eosinophils % (Manual) Nucleated RBC % Seg Neutrophils # Lymphocytes # (Manual) Monocytes # (Manual) Eosinophils # (Manual) PT INR APTT POC ABG pH ABG pH POC ABG pCO2 POC ABG pO2 ABG pO2 ABG HCO3 ABG O2 Saturation ABG Base Excess ABG Hemoglobin Oxyhemoglobin Sodium Potassium Chloride Carbon Dioxide BUN Creatinine Glucose POC Glucose 128 H 143 H 166 H Uric Acid Calcium Phosphorus Magnesium AST ALT Total Creatine Kinase CK-MB (CK-2) Troponin T NT-Pro-B Natriuret Pep Total Protein Albumin Triglycerides HDL Cholesterol Urine WBC (Auto) Urine Creatinine Urine Total Protein Vancomycin Trough 05/07/19 05/07/19 05/07/19 06:33 07:03 09:35 WBC RBC Hgb Hct MCV MCH MCHC RDW Lymph % (Auto) [place] % (Auto) Eos % (Auto) Lymph # [place] # Eos # Seg Neutrophils % Seg Neuts % (Manual) Lymphocytes % (Manual) Monocytes % (Manual) Eosinophils % (Manual) Nucleated RBC % Seg Neutrophils # Lymphocytes # (Manual) Monocytes # (Manual) Eosinophils # (Manual) PT INR APTT POC ABG pH 7.263 L 7.288 L ABG pH POC ABG pCO2 POC ABG pO2 51 L 56 L ABG pO2 ABG HCO3 ABG O2 Saturation ABG Base Excess ABG Hemoglobin Oxyhemoglobin Sodium Potassium Chloride Carbon Dioxide BUN 76 H Creatinine 3.2 H Glucose 147 H POC Glucose Uric Acid Calcium 7.9 L Phosphorus Magnesium AST ALT Total Creatine Kinase CK-MB (CK-2) Troponin T NT-Pro-B Natriuret Pep Total Protein Albumin Triglycerides HDL Cholesterol Urine WBC (Auto) Urine Creatinine Urine Total Protein Vancomycin Trough 05/07/19 05/07/19 05/07/19 09:35 12:17 13:45 WBC 13.4 H RBC Hgb 11.6 L Hct MCV MCH 27 L MCHC 31 L RDW 17.5 H Lymph % (Auto) [place] % (Auto) Eos % (Auto) Lymph # [place] # Eos # Seg Neutrophils % Seg Neuts % (Manual) Lymphocytes % (Manual) Monocytes % (Manual) Eosinophils % (Manual) Nucleated RBC % Seg Neutrophils # Lymphocytes # (Manual) Monocytes # (Manual) Eosinophils # (Manual) PT INR APTT POC ABG pH ABG pH POC ABG pCO2 POC ABG pO2 ABG pO2 ABG HCO3 ABG O2 Saturation ABG Base Excess ABG Hemoglobin Oxyhemoglobin Sodium Potassium Chloride Carbon Dioxide BUN Creatinine Glucose POC Glucose 130 H Uric Acid 18.0 H Calcium Phosphorus Magnesium AST ALT Total Creatine Kinase CK-MB (CK-2) Troponin T NT-Pro-B Natriuret Pep Total Protein Albumin Triglycerides HDL Cholesterol Urine WBC (Auto) Urine Creatinine Urine Total Protein Vancomycin Trough 05/07/19 05/07/19 05/08/19 17:39 22:40 05:06 WBC RBC Hgb Hct MCV MCH MCHC RDW Lymph % (Auto) [place] % (Auto) Eos % (Auto) Lymph # [place] # Eos # Seg Neutrophils % Seg Neuts % (Manual) Lymphocytes % (Manual) Monocytes % (Manual) Eosinophils % (Manual) Nucleated RBC % Seg Neutrophils # Lymphocytes # (Manual) Monocytes # (Manual) Eosinophils # (Manual) PT INR APTT POC ABG pH ABG pH POC ABG pCO2 POC ABG pO2 ABG pO2 ABG HCO3 ABG O2 Saturation ABG Base Excess ABG Hemoglobin Oxyhemoglobin Sodium Potassium Chloride Carbon Dioxide BUN Creatinine Glucose POC Glucose 116 H 148 H Uric Acid Calcium Phosphorus Magnesium AST ALT Total Creatine Kinase CK-MB (CK-2) Troponin T NT-Pro-B Natriuret Pep Total Protein Albumin Triglycerides HDL Cholesterol Urine WBC (Auto) Urine Creatinine 292.8 H Urine Total Protein 269 H Vancomycin Trough 05/08/19 05/08/19 05/08/19 05:32 11:28 13:48 WBC RBC Hgb Hct MCV MCH MCHC RDW Lymph % (Auto) [place] % (Auto) Eos % (Auto) Lymph # [place] # Eos # Seg Neutrophils % Seg Neuts % (Manual) Lymphocytes % (Manual) Monocytes % (Manual) Eosinophils % (Manual) Nucleated RBC % Seg Neutrophils # Lymphocytes # (Manual) Monocytes # (Manual) Eosinophils # (Manual) PT INR APTT POC ABG pH ABG pH POC ABG pCO2 45.4 H POC ABG pO2 64 L ABG pO2 ABG HCO3 ABG O2 Saturation ABG Base Excess ABG Hemoglobin Oxyhemoglobin Sodium Potassium Chloride Carbon Dioxide BUN 73 H Creatinine 2.7 H Glucose 127 H POC Glucose 107 H Uric Acid Calcium 7.6 L Phosphorus Magnesium AST ALT Total Creatine Kinase CK-MB (CK-2) Troponin T NT-Pro-B Natriuret Pep Total Protein Albumin Triglycerides HDL Cholesterol Urine WBC (Auto) Urine Creatinine Urine Total Protein Vancomycin Trough 05/08/19 05/09/19 05/09/19 17:48 04:50 04:53 WBC RBC 3.07 L Hgb 8.5 L D Hct 29.3 L D MCV 96 H MCH MCHC 29 L RDW 18.1 H Lymph % (Auto) [place] % (Auto) Eos % (Auto) Lymph # [place] # Eos # Seg Neutrophils % Seg Neuts % (Manual) Lymphocytes % (Manual) Monocytes % (Manual) Eosinophils % (Manual) Nucleated RBC % Seg Neutrophils # Lymphocytes # (Manual) Monocytes # (Manual) Eosinophils # (Manual) PT INR APTT POC ABG pH 7.316 L ABG pH POC ABG pCO2 66.0 H POC ABG pO2 69 L ABG pO2 ABG HCO3 ABG O2 Saturation ABG Base Excess ABG Hemoglobin Oxyhemoglobin Sodium Potassium Chloride Carbon Dioxide BUN Creatinine Glucose POC Glucose 155 H Uric Acid Calcium Phosphorus Magnesium AST ALT Total Creatine Kinase CK-MB (CK-2) Troponin T NT-Pro-B Natriuret Pep Total Protein Albumin Triglycerides HDL Cholesterol Urine WBC (Auto) Urine Creatinine Urine Total Protein Vancomycin Trough 05/09/19 05/09/19 05/09/19 05:46 07:24 12:10 WBC RBC Hgb Hct MCV MCH MCHC RDW Lymph % (Auto) [place] % (Auto) Eos % (Auto) Lymph # [place] # Eos # Seg Neutrophils % Seg Neuts % (Manual) Lymphocytes % (Manual) Monocytes % (Manual) Eosinophils % (Manual) Nucleated RBC % Seg Neutrophils # Lymphocytes # (Manual) Monocytes # (Manual) Eosinophils # (Manual) PT INR APTT POC ABG pH ABG pH POC ABG pCO2 POC ABG pO2 ABG pO2 ABG HCO3 ABG O2 Saturation ABG Base Excess ABG Hemoglobin Oxyhemoglobin Sodium Potassium Chloride Carbon Dioxide BUN 73 H Creatinine 2.4 H Glucose 153 H POC Glucose 123 H 148 H Uric Acid Calcium 8.2 L Phosphorus Magnesium AST 45 H ALT Total Creatine Kinase CK-MB (CK-2) Troponin T NT-Pro-B Natriuret Pep Total Protein 6.0 L Albumin 1.9 L Triglycerides HDL Cholesterol Urine WBC (Auto) Urine Creatinine Urine Total Protein Vancomycin Trough 05/09/19 05/09/19 05/10/19 18:23 23:26 04:52 WBC RBC Hgb Hct MCV MCH MCHC RDW Lymph % (Auto) [place] % (Auto) Eos % (Auto) Lymph # [place] # Eos # Seg Neutrophils % Seg Neuts % (Manual) Lymphocytes % (Manual) Monocytes % (Manual) Eosinophils % (Manual) Nucleated RBC % Seg Neutrophils # Lymphocytes # (Manual) Monocytes # (Manual) Eosinophils # (Manual) PT INR APTT POC ABG pH 7.305 L ABG pH POC ABG pCO2 62.6 H POC ABG pO2 ABG pO2 ABG HCO3 ABG O2 Saturation ABG Base Excess ABG Hemoglobin Oxyhemoglobin Sodium Potassium Chloride Carbon Dioxide BUN Creatinine Glucose POC Glucose 147 H 121 H Uric Acid Calcium Phosphorus Magnesium AST ALT Total Creatine Kinase CK-MB (CK-2) Troponin T NT-Pro-B Natriuret Pep Total Protein Albumin Triglycerides HDL Cholesterol Urine WBC (Auto) Urine Creatinine Urine Total Protein Vancomycin Trough 05/10/19 05/10/19 05/10/19 05:00 05:00 05:50 WBC RBC Hgb 10.3 L Hct 33.7 L MCV MCH 27 L MCHC 31 L RDW 17.0 H Lymph % (Auto) [place] % (Auto) Eos % (Auto) Lymph # [place] # Eos # Seg Neutrophils % Seg Neuts % (Manual) Lymphocytes % (Manual) Monocytes % (Manual) Eosinophils % (Manual) Nucleated RBC % Seg Neutrophils # Lymphocytes # (Manual) Monocytes # (Manual) Eosinophils # (Manual) PT INR APTT POC ABG pH ABG pH POC ABG pCO2 POC ABG pO2 ABG pO2 ABG HCO3 ABG O2 Saturation ABG Base Excess ABG Hemoglobin Oxyhemoglobin Sodium 147 H Potassium Chloride Carbon Dioxide BUN 70 H Creatinine 2.6 H Glucose 155 H POC Glucose 158 H Uric Acid Calcium 8.2 L Phosphorus Magnesium AST ALT Total Creatine Kinase CK-MB (CK-2) Troponin T NT-Pro-B Natriuret Pep Total Protein 6.1 L Albumin 2.5 L Triglycerides HDL Cholesterol Urine WBC (Auto) Urine Creatinine Urine Total Protein Vancomycin Trough 05/10/19 05/11/19 05/11/19 13:14 07:26 11:40 WBC RBC Hgb Hct MCV MCH MCHC RDW Lymph % (Auto) [place] % (Auto) Eos % (Auto) Lymph # [place] # Eos # Seg Neutrophils % Seg Neuts % (Manual) Lymphocytes % (Manual) Monocytes % (Manual) Eosinophils % (Manual) Nucleated RBC % Seg Neutrophils # Lymphocytes # (Manual) Monocytes # (Manual) Eosinophils # (Manual) PT INR APTT POC ABG pH ABG pH POC ABG pCO2 48.0 H POC ABG pO2 58 L ABG pO2 ABG HCO3 ABG O2 Saturation ABG Base Excess ABG Hemoglobin Oxyhemoglobin Sodium 147 H Potassium Chloride 107.2 H Carbon Dioxide BUN 67 H Creatinine 2.6 H Glucose 121 H POC Glucose 159 H Uric Acid Calcium Phosphorus Magnesium AST ALT Total Creatine Kinase CK-MB (CK-2) Troponin T NT-Pro-B Natriuret Pep Total Protein Albumin Triglycerides HDL Cholesterol Urine WBC (Auto) Urine Creatinine Urine Total Protein Vancomycin Trough 05/11/19 05/11/19 05/12/19 18:13 23:46 04:40 WBC RBC Hgb Hct MCV MCH MCHC RDW Lymph % (Auto) [place] % (Auto) Eos % (Auto) Lymph # [place] # Eos # Seg Neutrophils % Seg Neuts % (Manual) Lymphocytes % (Manual) Monocytes % (Manual) Eosinophils % (Manual) Nucleated RBC % Seg Neutrophils # Lymphocytes # (Manual) Monocytes # (Manual) Eosinophils # (Manual) PT INR APTT POC ABG pH ABG pH 7.264 L POC ABG pCO2 POC ABG pO2 ABG pO2 66.8 L ABG HCO3 31.0 H ABG O2 Saturation 92.0 L ABG Base Excess ABG Hemoglobin 10.3 L Oxyhemoglobin 90.1 L Sodium Potassium Chloride Carbon Dioxide BUN Creatinine Glucose POC Glucose 120 H 121 H Uric Acid Calcium Phosphorus Magnesium AST ALT Total Creatine Kinase CK-MB (CK-2) Troponin T NT-Pro-B Natriuret Pep Total Protein Albumin Triglycerides HDL Cholesterol Urine WBC (Auto) Urine Creatinine Urine Total Protein Vancomycin Trough 05/12/19 05/12/19 05/12/19 04:45 04:45 11:14 WBC RBC Hgb 10.2 L Hct 32.4 L MCV MCH MCHC 31 L RDW 17.2 H Lymph % (Auto) [place] % (Auto) Eos % (Auto) Lymph # [place] # Eos # Seg Neutrophils % Seg Neuts % (Manual) Lymphocytes % (Manual) Monocytes % (Manual) Eosinophils % (Manual) Nucleated RBC % Seg Neutrophils # Lymphocytes # (Manual) Monocytes # (Manual) Eosinophils # (Manual) PT INR APTT POC ABG pH 7.284 L ABG pH POC ABG pCO2 67.8 H POC ABG pO2 ABG pO2 ABG HCO3 ABG O2 Saturation ABG Base Excess ABG Hemoglobin Oxyhemoglobin Sodium Potassium Chloride Carbon Dioxide BUN 63 H Creatinine 2.4 H Glucose 110 H POC Glucose Uric Acid Calcium Phosphorus Magnesium AST ALT Total Creatine Kinase CK-MB (CK-2) Troponin T NT-Pro-B Natriuret Pep Total Protein Albumin Triglycerides HDL Cholesterol Urine WBC (Auto) Urine Creatinine Urine Total Protein Vancomycin Trough 05/12/19 05/12/19 05/13/19 11:44 23:11 04:30 WBC RBC Hgb Hct MCV MCH MCHC RDW Lymph % (Auto) [place] % (Auto) Eos % (Auto) Lymph # [place] # Eos # Seg Neutrophils % Seg Neuts % (Manual) Lymphocytes % (Manual) Monocytes % (Manual) Eosinophils % (Manual) Nucleated RBC % Seg Neutrophils # Lymphocytes # (Manual) Monocytes # (Manual) Eosinophils # (Manual) PT INR APTT POC ABG pH ABG pH 7.288 L POC ABG pCO2 POC ABG pO2 ABG pO2 109.7 H ABG HCO3 30.9 H ABG O2 Saturation ABG Base Excess 3.2 H ABG Hemoglobin 9.6 L Oxyhemoglobin Sodium Potassium Chloride Carbon Dioxide BUN Creatinine Glucose POC Glucose 126 H 147 H Uric Acid Calcium Phosphorus Magnesium AST ALT Total Creatine Kinase CK-MB (CK-2) Troponin T NT-Pro-B Natriuret Pep Total Protein Albumin Triglycerides HDL Cholesterol Urine WBC (Auto) Urine Creatinine Urine Total Protein Vancomycin Trough 05/13/19 05/13/19 05/14/19 06:27 11:58 04:00 WBC RBC 3.16 L Hgb 9.3 L Hct 27.9 L MCV MCH MCHC RDW 17.1 H Lymph % (Auto) [place] % (Auto) Eos % (Auto) Lymph # [place] # Eos # Seg Neutrophils % Seg Neuts % (Manual) Lymphocytes % (Manual) Monocytes % (Manual) Eosinophils % (Manual) Nucleated RBC % Seg Neutrophils # Lymphocytes # (Manual) Monocytes # (Manual) Eosinophils # (Manual) PT INR APTT POC ABG pH ABG pH POC ABG pCO2 POC ABG pO2 ABG pO2 ABG HCO3 ABG O2 Saturation ABG Base Excess ABG Hemoglobin Oxyhemoglobin Sodium Potassium Chloride Carbon Dioxide BUN Creatinine Glucose POC Glucose 113 H 130 H Uric Acid Calcium Phosphorus Magnesium AST ALT Total Creatine Kinase CK-MB (CK-2) Troponin T NT-Pro-B Natriuret Pep Total Protein Albumin Triglycerides HDL Cholesterol Urine WBC (Auto) Urine Creatinine Urine Total Protein Vancomycin Trough 05/14/19 05/14/19 05/14/19 04:00 04:34 05:32 WBC RBC Hgb Hct MCV MCH MCHC RDW Lymph % (Auto) [place] % (Auto) Eos % (Auto) Lymph # [place] # Eos # Seg Neutrophils % Seg Neuts % (Manual) Lymphocytes % (Manual) Monocytes % (Manual) Eosinophils % (Manual) Nucleated RBC % Seg Neutrophils # Lymphocytes # (Manual) Monocytes # (Manual) Eosinophils # (Manual) PT INR APTT POC ABG pH 7.328 L ABG pH POC ABG pCO2 61.7 H POC ABG pO2 ABG pO2 ABG HCO3 ABG O2 Saturation ABG Base Excess ABG Hemoglobin Oxyhemoglobin Sodium 135 L D Potassium Chloride Carbon Dioxide BUN 57 H Creatinine 2.2 H Glucose 115 H POC Glucose 115 H Uric Acid Calcium 8.1 L Phosphorus Magnesium AST ALT Total Creatine Kinase CK-MB (CK-2) Troponin T NT-Pro-B Natriuret Pep Total Protein Albumin Triglycerides HDL Cholesterol Urine WBC (Auto) Urine Creatinine Urine Total Protein Vancomycin Trough 05/14/19 05/15/19 05/15/19 12:11 05:10 05:24 WBC RBC Hgb Hct MCV MCH MCHC RDW Lymph % (Auto) [place] % (Auto) Eos % (Auto) Lymph # [place] # Eos # Seg Neutrophils % Seg Neuts % (Manual) Lymphocytes % (Manual) Monocytes % (Manual) Eosinophils % (Manual) Nucleated RBC % Seg Neutrophils # Lymphocytes # (Manual) Monocytes # (Manual) Eosinophils # (Manual) PT INR APTT POC ABG pH ABG pH 7.342 L POC ABG pCO2 POC ABG pO2 ABG pO2 79.1 L ABG HCO3 28.2 H ABG O2 Saturation ABG Base Excess ABG Hemoglobin 7.0 L Oxyhemoglobin 94.4 L Sodium Potassium Chloride Carbon Dioxide BUN Creatinine Glucose POC Glucose 110 H 116 H Uric Acid Calcium Phosphorus Magnesium AST ALT Total Creatine Kinase CK-MB (CK-2) Troponin T NT-Pro-B Natriuret Pep Total Protein Albumin Triglycerides HDL Cholesterol Urine WBC (Auto) Urine Creatinine Urine Total Protein Vancomycin Trough 05/15/19 05/15/19 05/16/19 09:00 18:12 04:50 WBC RBC Hgb Hct MCV MCH MCHC RDW Lymph % (Auto) [place] % (Auto) Eos % (Auto) Lymph # [place] # Eos # Seg Neutrophils % Seg Neuts % (Manual) Lymphocytes % (Manual) Monocytes % (Manual) Eosinophils % (Manual) Nucleated RBC % Seg Neutrophils # Lymphocytes # (Manual) Monocytes # (Manual) Eosinophils # (Manual) PT INR APTT POC ABG pH ABG pH 7.250 L POC ABG pCO2 POC ABG pO2 ABG pO2 76.4 L ABG HCO3 ABG O2 Saturation 94.6 L ABG Base Excess -3.1 L ABG Hemoglobin 9.7 L Oxyhemoglobin 92.4 L Sodium Potassium Chloride Carbon Dioxide BUN Creatinine Glucose POC Glucose 110 H Uric Acid Calcium Phosphorus Magnesium AST ALT Total Creatine Kinase CK-MB (CK-2) Troponin T NT-Pro-B Natriuret Pep Total Protein Albumin Triglycerides HDL Cholesterol Urine WBC (Auto) Urine Creatinine Urine Total Protein Vancomycin Trough 20.5 H 05/16/19 05/16/19 05/17/19 05:50 05:50 04:20 WBC RBC 3.36 L 3.44 L Hgb 9.4 L 9.3 L Hct 29.1 L 29.7 L MCV MCH 27 L MCHC 31 L RDW 17.6 H 17.6 H Lymph % (Auto) [place] % (Auto) Eos % (Auto) Lymph # [place] # Eos # Seg Neutrophils % Seg Neuts % (Manual) 77.0 H Lymphocytes % (Manual) 5.0 L Monocytes % (Manual) Eosinophils % (Manual) 10.0 H Nucleated RBC % Seg Neutrophils # Lymphocytes # (Manual) 0.5 L Monocytes # (Manual) Eosinophils # (Manual) 0.9 H PT INR APTT POC ABG pH ABG pH POC ABG pCO2 POC ABG pO2 ABG pO2 ABG HCO3 ABG O2 Saturation ABG Base Excess ABG Hemoglobin Oxyhemoglobin Sodium Potassium Chloride Carbon Dioxide BUN 83 H Creatinine 4.4 H D Glucose 118 H POC Glucose Uric Acid Calcium Phosphorus Magnesium AST ALT Total Creatine Kinase CK-MB (CK-2) Troponin T NT-Pro-B Natriuret Pep Total Protein Albumin Triglycerides HDL Cholesterol Urine WBC (Auto) Urine Creatinine Urine Total Protein Vancomycin Trough 05/17/19 05/17/19 05/18/19 04:30 Unknown 01:50 WBC RBC 3.49 L Hgb 9.4 L Hct 30.0 L MCV MCH 27 L MCHC 31 L RDW 17.8 H Lymph % (Auto) 7.9 L [place] % (Auto) 15.4 H Eos % (Auto) 6.3 H Lymph # 0.7 L [place] # 1.4 H Eos # 0.6 H Seg Neutrophils % 70.2 H Seg Neuts % (Manual) Lymphocytes % (Manual) Monocytes % (Manual) Eosinophils % (Manual) Nucleated RBC % Seg Neutrophils # Lymphocytes # (Manual) Monocytes # (Manual) Eosinophils # (Manual) PT INR APTT POC ABG pH ABG pH 7.272 L POC ABG pCO2 POC ABG pO2 ABG pO2 75.7 L ABG HCO3 ABG O2 Saturation 93.8 L ABG Base Excess -3.0 L ABG Hemoglobin 7.8 L Oxyhemoglobin 91.6 L Sodium Potassium 5.2 H Chloride Carbon Dioxide BUN 96 H Creatinine 5.7 H Glucose 112 H POC Glucose Uric Acid Calcium Phosphorus Magnesium AST ALT Total Creatine Kinase CK-MB (CK-2) Troponin T NT-Pro-B Natriuret Pep Total Protein Albumin Triglycerides 173 H HDL Cholesterol Urine WBC (Auto) Urine Creatinine Urine Total Protein Vancomycin Trough 05/18/19 05/18/19 05/18/19 01:50 04:41 05:24 WBC RBC Hgb Hct MCV MCH MCHC RDW Lymph % (Auto) [place] % (Auto) Eos % (Auto) Lymph # [place] # Eos # Seg Neutrophils % Seg Neuts % (Manual) Lymphocytes % (Manual) Monocytes % (Manual) Eosinophils % (Manual) Nucleated RBC % Seg Neutrophils # Lymphocytes # (Manual) Monocytes # (Manual) Eosinophils # (Manual) PT INR APTT POC ABG pH 7.260 L ABG pH POC ABG pCO2 54.9 H POC ABG pO2 ABG pO2 ABG HCO3 ABG O2 Saturation ABG Base Excess ABG Hemoglobin Oxyhemoglobin Sodium Potassium 5.6 H Chloride Carbon Dioxide BUN 104 H Creatinine 6.6 H Glucose 107 H POC Glucose 106 H Uric Acid Calcium Phosphorus Magnesium AST ALT Total Creatine Kinase CK-MB (CK-2) Troponin T NT-Pro-B Natriuret Pep Total Protein Albumin Triglycerides HDL Cholesterol Urine WBC (Auto) Urine Creatinine Urine Total Protein Vancomycin Trough 05/18/19 05/18/19 05/19/19 11:34 23:26 04:06 WBC RBC 3.22 L Hgb 8.8 L Hct 27.3 L MCV MCH 27 L MCHC RDW 17.5 H Lymph % (Auto) [place] % (Auto) Eos % (Auto) Lymph # [place] # Eos # Seg Neutrophils % Seg Neuts % (Manual) 74.0 H Lymphocytes % (Manual) 4.0 L Monocytes % (Manual) 11.0 H Eosinophils % (Manual) 7.0 H Nucleated RBC % 1.0 H Seg Neutrophils # Lymphocytes # (Manual) 0.3 L Monocytes # (Manual) 0.9 H Eosinophils # (Manual) 0.6 H PT INR APTT POC ABG pH ABG pH POC ABG pCO2 POC ABG pO2 ABG pO2 ABG HCO3 ABG O2 Saturation ABG Base Excess ABG Hemoglobin Oxyhemoglobin Sodium Potassium Chloride Carbon Dioxide BUN Creatinine Glucose POC Glucose 152 H 112 H Uric Acid Calcium Phosphorus Magnesium AST ALT Total Creatine Kinase CK-MB (CK-2) Troponin T NT-Pro-B Natriuret Pep Total Protein Albumin Triglycerides HDL Cholesterol Urine WBC (Auto) Urine Creatinine Urine Total Protein Vancomycin Trough 05/19/19 05/19/19 04:06 06:00 WBC RBC Hgb Hct MCV MCH MCHC RDW Lymph % (Auto) [place] % (Auto) Eos % (Auto) Lymph # [place] # Eos # Seg Neutrophils % Seg Neuts % (Manual) Lymphocytes % (Manual) Monocytes % (Manual) Eosinophils % (Manual) Nucleated RBC % Seg Neutrophils # Lymphocytes # (Manual) Monocytes # (Manual) Eosinophils # (Manual) PT INR APTT POC ABG pH ABG pH 7.315 L POC ABG pCO2 POC ABG pO2 ABG pO2 ABG HCO3 ABG O2 Saturation ABG Base Excess ABG Hemoglobin 6.7 L Oxyhemoglobin 94.1 L Sodium Potassium 5.2 H Chloride Carbon Dioxide 21 L BUN 110 H Creatinine 7.2 H Glucose POC Glucose Uric Acid Calcium 8.3 L Phosphorus Magnesium AST ALT Total Creatine Kinase CK-MB (CK-2) Troponin T NT-Pro-B Natriuret Pep Total Protein Albumin Triglycerides HDL Cholesterol Urine WBC (Auto) Urine Creatinine Urine Total Protein Vancomycin Trough
[2019-05-20] MEDS: SODIUM BICARBONATE 150 MEQ in DEXTROSE 5% IN WATER 1,000 ML IV SCH ×2 (02:22→19:12)
[2019-05-20] MEDS: fentaNYL DRIP Premix 2,000 MCG/100 ML BAG IV SCH ×4 (02:27→21:24)
[2019-05-20] MEDS ORDERED: HEPARIN 10,000 UNIT/1 ML VIAL ONE (03:00)
[2019-05-20 04:33] LABS: Hematocrit 28.6 % (35.5-45.6); Hemoglobin 9.2 gm/dl (11.8-15.2); Mean Corpuscular HGB Conc 32 % (32-34); Mean Corpuscular Volume 84 fl (84-94); Platelet Count 394 K/mm3 (140-440); Red Cell Distribution Width 17.6 % (13.2-15.2)
[2019-05-20 04:39] LABS: Calcium 8.5 mg/dL (8.4-10.2)
[2019-05-20 06:22] LABS: Band Neutrophils # (Manual) 0.5 K/mm3; Total Cells Counted 100
[2019-05-20 06:23] LABS: Platelet Estimate Consistent w Auto; Stomatocytes Rare; Target Cells Rare
[2019-05-20 06:59] LABS: ABG Methemoglobin 0.6 % (0.0-1.5); ABG Oxygen Saturation 94.5 % (95.0-99.0); ABG PH 7.281 pH Units (7.350-7.450); ABG PO2 78.7 mm Hg (80.0-90.0)
--- NOTE | 2019-05-20 08:03 | Progress Note ---
Hospitalist Physical - Constitutional Vitals: Temp Pulse Resp BP Pulse Ox 99.3 F 104 H 29 H 134/55 97 05/20/19 07:48 05/20/19 07:45 05/20/19 07:45 05/20/19 07:45 05/20/19 07:45 General appearance: Present: no acute distress Results - Labs CBC & Chem 7: 05/20/19 04:00 05/20/19 04:00 Labs: Laboratory Last Values WBC 9.7 K/mm3 (4.5-11.0) 05/20/19 04:00 RBC 3.40 M/mm3 (3.65-5.03) L 05/20/19 04:00 Hgb 9.2 gm/dl (11.8-15.2) L 05/20/19 04:00 Hct 28.6 % (35.5-45.6) L 05/20/19 04:00 MCV 84 fl (84-94) 05/20/19 04:00 MCH 27 pg (28-32) L 05/20/19 04:00 MCHC 32 % (32-34) 05/20/19 04:00 RDW 17.6 % (13.2-15.2) H 05/20/19 04:00 Plt Count 394 K/mm3 (140-440) 05/20/19 04:00 Lymph % (Auto) 7.9 % (13.4-35.0) L 05/18/19 01:50 [place] % (Auto) [employer] 05/20/19 04:00 Eos % (Auto) 6.3 % (0.0-4.3) H 05/18/19 01:50 Baso % (Auto) 0.2 % (0.0-1.8) 05/18/19 01:50 Lymph # 0.7 K/mm3 (1.2-5.4) L 05/18/19 01:50 [place] # 1.4 K/mm3 (0.0-0.8) H 05/18/19 01:50 Eos # 0.6 K/mm3 (0.0-0.4) H 05/18/19 01:50 Baso # 0.0 K/mm3 (0.0-0.1) 05/18/19 01:50 Add Manual Diff Complete 05/20/19 04:00 Total Counted 100 05/20/19 04:00 Seg Neutrophils % 70.2 % (40.0-70.0) H 05/18/19 01:50 Seg Neuts % (Manual) 60.0 % (40.0-70.0) 05/20/19 04:00 Band Neutrophils % 5.0 % 05/20/19 04:00 Lymphocytes % (Manual) 11.0 % (13.4-35.0) L 05/20/19 04:00 Reactive Lymphs % (Man) 0 % 05/20/19 04:00 Monocytes % (Manual) 7.0 % (0.0-7.3) 05/20/19 04:00 Eosinophils % (Manual) 14.0 % (0.0-4.3) H 05/20/19 04:00 Basophils % (Manual) 1.0 % (0.0-1.8) 05/20/19 04:00 Metamyelocytes % 2.0 % 05/20/19 04:00 Myelocytes % 0 % 05/20/19 04:00 Promyelocytes % 0 % 05/20/19 04:00 Blast Cells % 0 % 05/20/19 04:00 Nucleated RBC % Not Reportable 05/20/19 04:00 Seg Neutrophils # 6.5 K/mm3 (1.8-7.7) 05/18/19 01:50 Seg Neutrophils # Man 5.8 K/mm3 (1.8-7.7) 05/20/19 04:00 Band Neutrophils # 0.5 K/mm3 05/20/19 04:00 Lymphocytes # (Manual) 1.1 K/mm3 (1.2-5.4) L 05/20/19 04:00 Abs React Lymphs (Man) 0.0 K/mm3 05/20/19 04:00 Monocytes # (Manual) 0.7 K/mm3 (0.0-0.8) 05/20/19 04:00 Eosinophils # (Manual) 1.4 K/mm3 (0.0-0.4) H 05/20/19 04:00 Basophils # (Manual) 0.1 K/mm3 (0.0-0.1) 05/20/19 04:00 Metamyelocytes # 0.2 K/mm3 05/20/19 04:00 Myelocytes # 0.0 K/mm3 05/20/19 04:00 Promyelocytes # 0.0 K/mm3 05/20/19 04:00 Blast Cells # 0.0 K/mm3 05/20/19 04:00 WBC Morphology Not Reportable 05/20/19 04:00 Hypersegmented Neuts Not Reportable 05/20/19 04:00 Hyposegmented Neuts Not Reportable 05/20/19 04:00 Hypogranular Neuts Not Reportable 05/20/19 04:00 Smudge Cells Not Reportable 05/20/19 04:00 Toxic Granulation Not Reportable 05/20/19 04:00 Toxic Vacuolation Not Reportable 05/20/19 04:00 Dohle Bodies Not Reportable 05/20/19 04:00 Pelger-Huet Anomaly Not Reportable 05/20/19 04:00 Renea Rods Not Reportable 05/20/19 04:00 Platelet Estimate Consistent w auto 05/20/19 04:00 Clumped Platelets Not Reportable 05/20/19 04:00 Plt Clumps, EDTA Not Reportable 05/20/19 04:00 Large Platelets Not Reportable 05/20/19 04:00 Giant Platelets Not Reportable 05/20/19 04:00 Platelet Satelliting Not Reportable 05/20/19 04:00 Plt Morphology Comment Not Reportable 05/20/19 04:00 RBC Morphology Not Reportable 05/20/19 04:00 Dimorphic RBCs Not Reportable 05/20/19 04:00 Polychromasia Not Reportable 05/20/19 04:00 Hypochromasia Not Reportable 05/20/19 04:00 Poikilocytosis Not Reportable 05/20/19 04:00 Anisocytosis Not Reportable 05/20/19 04:00 Microcytosis Not Reportable 05/20/19 04:00 Macrocytosis Not Reportable 05/20/19 04:00 Spherocytes Not Reportable 05/20/19 04:00 Pappenheimer Bodies Not Reportable 05/20/19 04:00 Sickle Cells Not Reportable 05/20/19 04:00 Target Cells Rare 05/20/19 04:00 Tear Drop Cells Not Reportable 05/20/19 04:00 Ovalocytes Not Reportable 05/20/19 04:00 Stomatocytes Rare 05/20/19 04:00 Helmet Cells Not Reportable 05/20/19 04:00 [place] Bodies Not Reportable 05/20/19 04:00 Section Rings Not Reportable 05/20/19 04:00 [place] Cells Not Reportable 05/20/19 04:00 Bite Cells Not Reportable 05/20/19 04:00 Crenated Cell Not Reportable 05/20/19 04:00 Elliptocytes Not Reportable 05/20/19 04:00 Acanthocytes (Spur) Not Reportable 05/20/19 04:00 Rouleaux Not Reportable 05/20/19 04:00 Hemoglobin C Crystals Not Reportable 05/20/19 04:00 Schistocytes Not Reportable 05/20/19 04:00 Malaria parasites Not Reportable 05/20/19 04:00 Syed Bodies Not Reportable 05/20/19 04:00 Hem Pathologist Commnt No 05/20/19 04:00 PT 15.4 Sec. (12.2-14.9) H 05/01/19 Unknown INR 1.23 (0.87-1.13) H 05/01/19 Unknown APTT 22.7 Sec. (24.2-36.6) L 05/01/19 Unknown POC ABG pH 7.260 (7.35-7.45) L 05/18/19 04:41 ABG pH 7.281 pH Units (7.350-7.450) L 05/20/19 05:48 POC ABG pCO2 54.9 (35-45) H 05/18/19 04:41 ABG pCO2 52.0 mm Hg 05/20/19 05:48 POC ABG pO2 80 (80-105) 05/18/19 04:41 ABG pO2 78.7 mm Hg (80.0-90.0) L 05/20/19 05:48 POC ABG HCO3 24.6 (22-26 mml/L) 05/18/19 04:41 ABG HCO3 24.0 mmol/L (20.0-26.0) 05/20/19 05:48 POC ABG Total CO2 26 (23-27mmol/L) 05/18/19 04:41 POC ABG O2 Sat 93 05/18/19 04:41 ABG O2 Saturation 94.5 % (95.0-99.0) L 05/20/19 05:48 ABG O2 Content 13.0 (0.0-44) 05/20/19 05:48 POC ABG Base Excess -2 ((-2) - (+3)mmol/L) 05/18/19 04:41 ABG Base Excess -3.0 mmol/L (-2.0-3.0) L 05/20/19 05:48 ABG Hemoglobin 9.9 gm/dl (14.0-18.0) L 05/20/19 05:48 ABG Carboxyhemoglobin 1.6 % (0.0-5.0) 05/20/19 05:48 ABG Methemoglobin 0.6 % (0.0-1.5) 05/20/19 05:48 Oxyhemoglobin 92.5 % (95.0-99.0) L 05/20/19 05:48 FiO2 55 % 05/20/19 05:48 Sodium 136 mmol/L (137-145) L 05/20/19 04:00 Potassium 5.7 mmol/L (3.6-5.0) H 05/20/19 04:00 Chloride 96.3 mmol/L (98-107) L 05/20/19 04:00 Carbon Dioxide 22 mmol/L (22-30) 05/20/19 04:00 Anion Gap 23 mmol/L 05/20/19 04:00 BUN 125 mg/dL (9-20) H 05/20/19 04:00 Creatinine 8.3 mg/dL (0.8-1.5) H 05/20/19 04:00 Estimated GFR 9 ml/min 05/20/19 04:00 BUN/Creatinine Ratio 15 % 05/20/19 04:00 Glucose 106 mg/dL (75-100) H 05/20/19 04:00 POC Glucose 97 (70-105) 05/20/19 05:17 Osmolality 327 Mosm/kg 05/07/19 13:45 Uric Acid 18.0 mg/dL (3.5-7.6) H 05/07/19 13:45 Calcium 8.5 mg/dL (8.4-10.2) 05/20/19 04:00 Phosphorus 4.90 mg/dL (2.5-4.5) H 05/02/19 00:06 Magnesium 2.30 mg/dL (1.7-2.3) 05/02/19 00:06 Total Bilirubin 0.20 mg/dL (0.1-1.2) 05/10/19 05:00 AST 34 units/L (5-40) 05/10/19 05:00 ALT 35 units/L (7-56) 05/10/19 05:00 Alkaline Phosphatase 45 units/L (35-129) 05/10/19 05:00 Total Creatine Kinase 131 units/L (55-170) 05/02/19 04:41 CK-MB (CK-2) 5.2 ng/mL (0.0-4.0) H 05/02/19 04:41 CK-MB (CK-2) Rel Index 3.9 (0-4) 05/02/19 04:41 Troponin T 0.067 ng/mL (0.00-0.029) H D 05/02/19 04:41 NT-Pro-B Natriuret Pep 6831 pg/mL (0-450) H 05/01/19 Unknown Total Protein 6.1 g/dL (6.3-8.2) L 05/10/19 05:00 Albumin 2.5 g/dL (3.9-5) L 05/10/19 05:00 Albumin/Globulin Ratio 0.7 % 05/10/19 05:00 Triglycerides 173 mg/dL (2-149) H 05/17/19 Unknown Cholesterol 173 mg/dL (50-199) 05/02/19 00:06 LDL Cholesterol Direct 126 mg/dL (50-130) 05/02/19 00:06 HDL Cholesterol 18 mg/dL (40-59) L 05/02/19 00:06 Cholesterol/HDL Ratio 9.61 % 05/02/19 00:06 Procalcitonin 0.54 ng/mL (<0.15) 05/03/19 11:52 Urine Color Yellow (Yellow) 05/03/19 10:55 Urine Turbidity Turbid (Clear) 05/03/19 10:55 Urine pH 5.0 (5.0-7.0) 05/03/19 10:55 Ur Specific [place] 1.014 (1.003-1.030) 05/03/19 10:55 Urine Protein <15 mg/dl mg/dL (Negative) 05/03/19 10:55 Urine Glucose (UA) Neg mg/dL (Negative) 05/03/19 10:55 Urine Ketones Neg mg/dL (Negative) 05/03/19 10:55 Urine Blood Lg (Negative) 05/03/19 10:55 Urine Nitrite Neg (Negative) 05/03/19 10:55 Urine Bilirubin Neg (Negative) 05/03/19 10:55 Urine Urobilinogen < 2.0 mg/dL (<2.0) 05/03/19 10:55 Ur Leukocyte Esterase Mod (Negative) 05/03/19 10:55 Urine WBC (Auto) 33.0 /HPF (0.0-6.0) H 05/03/19 10:55 Urine RBC (Auto) 8.0 /HPF (0.0-6.0) 05/03/19 10:55 Urine Bacteria (Auto) 1+ /HPF (Negative) 05/03/19 10:55 Uric Acid Crystals 3+ 05/03/19 10:55 Urine Mucus Few /HPF 05/03/19 10:55 Urine Creatinine 292.8 mg/dL (0.1-20.0) H 05/07/19 22:40 Urine Sodium 11 mmol/L 05/07/19 22:40 Urine Total Protein 269 mg/dL (5-11.8) H 05/07/19 22:40 Vancomycin Trough 20.5 ug/mL (5.0-20.0) H 05/15/19 09:00 Random Vancomycin 11.5 ug/mL (0-40.0) 05/19/19 11:00 AMNA Screen Negative (Negative) 05/07/19 13:45 Hepatitis A IgM Ab Non-reactive (NonReactive) 05/07/19 13:45 Hep Bs Antigen Non-reactive (Negative) 05/07/19 13:45 Hep B Core IgM Ab Non-reactive (NonReactive) 05/07/19 13:45 Hepatitis C Antibody Non-reactive (NonReactive) 05/07/19 13:45 Active Medications - Current Medications Current Medications: Generic Name Dose Route Start Last Admin Trade Name Freq PRN Reason Stop Dose Admin Acetaminophen 650 mg 05/01/19 22:46 05/19/19 18:13 Tylenol PO 650 mg Q4H PRN Administration Pain MILD(1-3)/Fever >100.5/FREEMAN Albumin Human 25 gm 05/19/19 10:47 [place]x 25% (Albumin) IV ARIANE PRN Hypotension Lipase/Protease/Amylase 1 each 05/14/19 15:[address] 10,500 Unit FEEDTUBE PRN PRN For Clogged Feeding Tube Dextrose 50 gm 05/01/19 20:24 D50w (25gm) Vial IV Q30MIN PRN Hypoglycemia Protocol Enoxaparin Sodium 30 mg 05/16/19 10:00 05/19/19 10:10 Enoxaparin SUB-Q 30 mg QDAY VICKEY Administration Epoetin Hugo 10,000 unit 05/19/19 10:47 Procrit IV ARIANE PRN hemodialysis Famotidine 20 mg 05/16/19 10:00 05/19/19 10:10 Pepcid PO 20 mg DAILY VICKEY Administration Hydralazine HCl 20 mg 05/13/19 08:09 05/14/19 18:09 Apresoline IV 20 mg Q4HR PRN Administration SBP >/=160 Hydrophilic Ointment 1 applic 05/01/19 21:14 Vaseline Lip Therapy TP Q2HR PRN Dry Lips Fentanyl Citrate 2,000 mcg in 100 mls @ 10.195 mls/hr 05/01/19 22:00 05/20/19 02:27 Fentanyl Drip Premix IV 2 mcg/kg/hr TITR VICKEY 20.39 mls/hr Administration Protocol 1 MCG/KG/HR Propofol 1,000 mg in 100 mls @ 7.011 mls/hr 05/03/19 04:00 05/20/19 02:24 Diprivan 10 Mg/Ml IV 15 mcg/kg/min TITR VICKEY 21.033 mls/hr Administration Protocol 5 MCG/KG/MIN Norepinephrine 4 mg in 250 mls @ 7.5 mls/hr 05/03/19 18:00 05/19/19 13:53 Levophed Drip 4 Mg/Ns 250 Ml IV 2 mcg/min TITR VICKEY 7.5 mls/hr Titration Protocol 2 MCG/MIN Sodium Chloride 500 mls @ 10 mls/hr 05/06/19 15:00 Nacl 0.9% 500 Ml IV DIRECT VICKEY Metronidazole 500 mg in 100 mls @ 100 mls/hr 05/11/19 14:00 05/19/19 21:53 Flagyl 500 Mg/100 Ml IV 12/27/19 13:59 100 mls/hr Q8HR VICKEY Administration Protocol Nicardipine HCl 50 mg/ Sodium 250 mls @ 25 mls/hr 05/13/19 10:00 05/14/19 23:12 Chloride IV 0 mg/hr TITR VICKEY 0 mls/hr Titration Protocol 5 MG/HR Sodium Bicarbonate 150 meq/ 1,150 mls @ 75 mls/hr 05/18/19 11:30 05/20/19 02:22 Dextrose IV 75 mls/hr DIRECT VICKEY Administration Cefepime HCl 2 gm in 100 mls @ 200 mls/hr 05/18/19 11:00 05/19/19 10:10 Cefepime/Ns 2 Gm/100 Ml IV 200 mls/hr Q24HR VICKEY Administration Protocol Sodium Chloride 100 mls @ 999 mls/hr 05/19/19 10:47 05/19/19 13:48 Nacl 0.9% IV 999 mls/hr ARIANE PRN Administration Hypotension Labetalol HCl 100 mg 05/14/19 14:00 05/19/19 21:53 Labetalol PO Not Given Q8HR VICKEY Levetiracetam 750 mg 05/13/19 10:00 05/19/19 21:53 Keppra PO 750 mg BID VICKEY Administration Lorazepam 2 mg 05/06/19 06:22 05/10/19 16:17 Ativan IV 2 mg Q4H PRN Administration Seizures/AGITATION Multi-Ingred Cream/Lotion/Oil/Oint 1 applic 05/01/19 21:14 Artificial Tears Ophth Oint OU Q4HR PRN Dry Eye(s) Ondansetron HCl 4 mg 05/01/19 22:46 Zofran IV Q8H PRN Nausea And Vomiting Simple Syrup 15 ml 05/14/19 15:01 Simple Syrup FEEDTUBE PRN PRN Hypoglycemia Simple Syrup 30 ml 05/14/19 15:01 Simple Syrup FEEDTUBE PRN PRN Hypoglycemia Sodium Bicarbonate 325 mg 05/14/19 15:01 Sodium Bicarbonate FEEDTUBE PRN PRN For Clogged Feeding Tube Sodium Chloride 10 ml 05/02/19 10:00 05/19/19 10:11 Sodium Chloride Flush Syringe 10 Ml IV 10 ml BID VICKEY Administration Sodium Chloride 10 ml 05/01/19 22:46 05/05/19 02:28 Sodium Chloride Flush Syringe 10 Ml IV 10 ml PRN PRN Administration LINE FLUSH Nutrition/Malnutrition Assess - Dietary Evaluation Nutrition/Malnutrition Findings: Nutrition Notes Start: 05/04/19 12:54 Freq: Status: Active Protocol: Document 05/14/19 10:48 DW (Rec: 05/14/19 11:32 DW [id number]) Co-Sign 05/14/19 10:48 LP Nutrition Notes Initial or Follow up Reassessment Current Diagnosis Acute Kidney Injury,Sepsis, Respiratory Failure Current Diet Nepro 1.8 at 60ml/hr Labs/Tests Na 135 BUN 57 Cr 2.2 Pertinent Medications Propofol at 7.011 ml/hr (185 kcal) Height 6 ft 4 in Weight 227.5 kg [place] Body Weight (kg) 91.81 BMI 61.0 Weight Status Morbidly Obese Subjective/Other Information FU TF tolerance and Na labs Upon arrival noticed Nepro 1.8 running at goal of 50ml/hr Na lab did big jump from 05/11 of Na 145 to 135 today. Flush to decrease to 200ml qh4 Percent of energy/protein needs met: 86%/43% Burn Absent Trauma Absent Current % PO Negligible Minimum of two criteria No physical signs of malnutrition #1 Nutrition Diagnosis Inadequate oral intake Diagnosis Progress(for reassessment Continues documentation) Is patient on ventilator? Yes Is Patient Ambulatory and/or Out of Bed No REE-([place]-confined to bed) 3986.244 Kcal/Kg value to use for calculation 11 Approximate Energy Requirements Using 2503 kcal/Kg Calculation Used for Recommendations Kcal/kg Additional Notes PRO needs: 225 g (up to 2.5 g/ kg 91.81 IBW) Fluid needs: 1 ml/kcal Nutrition Intervention Change Diet Order: Continue TF Nutrition Support: Nepro 1.8 at 50 ml/hr flush 200 ml q4hr once Kcal 2,160 Protein (gm) 97 Fluid (mL) 872 Goal #1 TF tolerance Goal #2 Meet at least 75% kcal/PRO needs via TF Anticipated Discharge Needs: Unable to determine at this time Follow-Up By: 05/21/19 Additional Comments F/U for TF tolerance
--- NOTE | 2019-05-20 08:10 | Progress Note ---
Assessment and Plan Assessment and plan: Patient is a 34-year-old man who is morbidly obese (575 lbs) with unknown medical history who presented to [facility] ED on 05/01/2019 (I started seeing patient for the first time on 05/20/19, Day 19) with SOB. He was placed on BIPAP and failed. He had cardiac arrest in ED and was Intubated in ED. On 05/12/19- ETT exchanged due to hypoxia. In the chart there is a report that he has undiagnosis LANDON and using someone else CPAP. 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 Wet Suit Gluer managing. Obesity Hypoventilation syndrome Patient previously on LANODN Management at home but per discussion with family, was non complaint Sepsis- not present on admission -On abx, ID following. LP when able ?Meningitis considering recurrent fever. Doubt, but ID following Acylovir stopped ?seizure activity -Meninigitis prophy -Neurology consult -EEG-negative Acute CHF, new onset, diastolic Diurese with IV lasix held, monitor I/O, daily weights Cardiology following. Added beta-jenny, no TIM inhibitor secondary to renal insufficiency Hypertension malignant Start antihypertensive, monitor blood pressure IV hydralazine as needed for further control Acute kidney injury due to ATN ?Vancomycin toxicity, Held. Monitor Nephrology following and input noted. Han for strict I/Os HD per nephrology Hyperkalemia-Kaylexate Passive congestive hepatic syndrome -LFT elevated but trending down -Noted Gallbladder sludge DVT prophylaxis with Lovenox Morbid obesity Full code status. Prognosis guarded +han with sediment, receiving HD, ?need for han +ETT +NGT +Fentanyl; and Diprivan RUE PIcc off levaphed this morning receiving HD drool, with increased secretion, scopolamine patch CCT 36 minutes History Interval history: Patient was seen and examined. Follow-up on current diagnosis of Respiratory failure. Overnight uneventful. Imaging, nursing note, chart, labs and old chart reviewed. Hospitalist Physical - Physical exam Narrative exam: Gen: critically ill, bmi 70.1 sedated HEENT: NCAT, OP ETT in place Neck: supple, no adenopathy, no thyromegaly, no JVD CVS/Heart: tachycardiac, normal S1S2, pulses present bilaterally Chest/Lungs: tachypneic, Symmetrical chest expansion, good air entry bilaterally GI/Abdomen: soft, NTND, good bowel sounds, no guarding or rebound Extermity/Skin: good skin turgor MSK: sedated Neuro: sedated Psych: sedated - Constitutional Vitals: Temp Pulse Resp BP Pulse Ox 99.3 F 104 H 29 H 134/55 97 05/20/19 07:48 05/20/19 08:00 05/20/19 07:45 05/20/19 08:00 05/20/19 08:00 General appearance: Present: no acute distress Results - Labs CBC & Chem 7: 05/20/19 04:00 05/20/19 04:00 Labs: Laboratory Last Values WBC 9.7 K/mm3 (4.5-11.0) 05/20/19 04:00 RBC 3.40 M/mm3 (3.65-5.03) L 05/20/19 04:00 Hgb 9.2 gm/dl (11.8-15.2) L 05/20/19 04:00 Hct 28.6 % (35.5-45.6) L 05/20/19 04:00 MCV 84 fl (84-94) 05/20/19 04:00 MCH 27 pg (28-32) L 05/20/19 04:00 MCHC 32 % (32-34) 05/20/19 04:00 RDW 17.6 % (13.2-15.2) H 05/20/19 04:00 Plt Count 394 K/mm3 (140-440) 05/20/19 04:00 Lymph % (Auto) 7.9 % (13.4-35.0) L 05/18/19 01:50 Kane % (Auto) Facility Planner 05/20/19 04:00 Eos % (Auto) 6.3 % (0.0-4.3) H 05/18/19 01:50 Baso % (Auto) 0.2 % (0.0-1.8) 05/18/19 01:50 Lymph # 0.7 K/mm3 (1.2-5.4) L 05/18/19 01:50 Kane # 1.4 K/mm3 (0.0-0.8) H 05/18/19 01:50 Eos # 0.6 K/mm3 (0.0-0.4) H 05/18/19 01:50 Baso # 0.0 K/mm3 (0.0-0.1) 05/18/19 01:50 Add Manual Diff Complete 05/20/19 04:00 Total Counted 100 05/20/19 04:00 Seg Neutrophils % 70.2 % (40.0-70.0) H 05/18/19 01:50 Seg Neuts % (Manual) 60.0 % (40.0-70.0) 05/20/19 04:00 Band Neutrophils % 5.0 % 05/20/19 04:00 Lymphocytes % (Manual) 11.0 % (13.4-35.0) L 05/20/19 04:00 Reactive Lymphs % (Man) 0 % 05/20/19 04:00 Monocytes % (Manual) 7.0 % (0.0-7.3) 05/20/19 04:00 Eosinophils % (Manual) 14.0 % (0.0-4.3) H 05/20/19 04:00 Basophils % (Manual) 1.0 % (0.0-1.8) 05/20/19 04:00 Metamyelocytes % 2.0 % 05/20/19 04:00 Myelocytes % 0 % 05/20/19 04:00 Promyelocytes % 0 % 05/20/19 04:00 Blast Cells % 0 % 05/20/19 04:00 Nucleated RBC % Not Reportable 05/20/19 04:00 Seg Neutrophils # 6.5 K/mm3 (1.8-7.7) 05/18/19 01:50 Seg Neutrophils # Man 5.8 K/mm3 (1.8-7.7) 05/20/19 04:00 Band Neutrophils # 0.5 K/mm3 05/20/19 04:00 Lymphocytes # (Manual) 1.1 K/mm3 (1.2-5.4) L 05/20/19 04:00 Abs React Lymphs (Man) 0.0 K/mm3 05/20/19 04:00 Monocytes # (Manual) 0.7 K/mm3 (0.0-0.8) 05/20/19 04:00 Eosinophils # (Manual) 1.4 K/mm3 (0.0-0.4) H 05/20/19 04:00 Basophils # (Manual) 0.1 K/mm3 (0.0-0.1) 05/20/19 04:00 Metamyelocytes # 0.2 K/mm3 05/20/19 04:00 Myelocytes # 0.0 K/mm3 05/20/19 04:00 Promyelocytes # 0.0 K/mm3 05/20/19 04:00 Blast Cells # 0.0 K/mm3 05/20/19 04:00 WBC Morphology Not Reportable 05/20/19 04:00 Hypersegmented Neuts Not Reportable 05/20/19 04:00 Hyposegmented Neuts Not Reportable 05/20/19 04:00 Hypogranular Neuts Not Reportable 05/20/19 04:00 Smudge Cells Not Reportable 05/20/19 04:00 Toxic Granulation Not Reportable 05/20/19 04:00 Toxic Vacuolation Not Reportable 05/20/19 04:00 Dohle Bodies Not Reportable 05/20/19 04:00 Pelger-Huet Anomaly Not Reportable 05/20/19 04:00 Renea Rods Not Reportable 05/20/19 04:00 Platelet Estimate Consistent w auto 05/20/19 04:00 Clumped Platelets Not Reportable 05/20/19 04:00 Plt Clumps, EDTA Not Reportable 05/20/19 04:00 Large Platelets Not Reportable 05/20/19 04:00 Giant Platelets Not Reportable 05/20/19 04:00 Platelet Satelliting Not Reportable 05/20/19 04:00 Plt Morphology Comment Not Reportable 05/20/19 04:00 RBC Morphology Not Reportable 05/20/19 04:00 Dimorphic RBCs Not Reportable 05/20/19 04:00 Polychromasia Not Reportable 05/20/19 04:00 Hypochromasia Not Reportable 05/20/19 04:00 Poikilocytosis Not Reportable 05/20/19 04:00 Anisocytosis Not Reportable 05/20/19 04:00 Microcytosis Not Reportable 05/20/19 04:00 Macrocytosis Not Reportable 05/20/19 04:00 Spherocytes Not Reportable 05/20/19 04:00 Pappenheimer Bodies Not Reportable 05/20/19 04:00 Sickle Cells Not Reportable 05/20/19 04:00 Target Cells Rare 05/20/19 04:00 Tear Drop Cells Not Reportable 05/20/19 04:00 Ovalocytes Not Reportable 05/20/19 04:00 Stomatocytes Rare 05/20/19 04:00 Helmet Cells Not Reportable 05/20/19 04:00 Segovia-Fenton Bodies Not Reportable 05/20/19 04:00 Outlook Rings Not Reportable 05/20/19 04:00 Dennis Cells Not Reportable 05/20/19 04:00 Bite Cells Not Reportable 05/20/19 04:00 Crenated Cell Not Reportable 05/20/19 04:00 Elliptocytes Not Reportable 05/20/19 04:00 Acanthocytes (Spur) Not Reportable 05/20/19 04:00 Rouleaux Not Reportable 05/20/19 04:00 Hemoglobin C Crystals Not Reportable 05/20/19 04:00 Schistocytes Not Reportable 05/20/19 04:00 Malaria parasites Not Reportable 05/20/19 04:00 Syed Bodies Not Reportable 05/20/19 04:00 Hem Pathologist Commnt No 05/20/19 04:00 PT 15.4 Sec. (12.2-14.9) H 05/01/19 Unknown INR 1.23 (0.87-1.13) H 05/01/19 Unknown APTT 22.7 Sec. (24.2-36.6) L 05/01/19 Unknown POC ABG pH 7.260 (7.35-7.45) L 05/18/19 04:41 ABG pH 7.281 pH Units (7.350-7.450) L 05/20/19 05:48 POC ABG pCO2 54.9 (35-45) H 05/18/19 04:41 ABG pCO2 52.0 mm Hg 05/20/19 05:48 POC ABG pO2 80 (80-105) 05/18/19 04:41 ABG pO2 78.7 mm Hg (80.0-90.0) L 05/20/19 05:48 POC ABG HCO3 24.6 (22-26 mml/L) 05/18/19 04:41 ABG HCO3 24.0 mmol/L (20.0-26.0) 05/20/19 05:48 POC ABG Total CO2 26 (23-27mmol/L) 05/18/19 04:41 POC ABG O2 Sat 93 05/18/19 04:41 ABG O2 Saturation 94.5 % (95.0-99.0) L 05/20/19 05:48 ABG O2 Content 13.0 (0.0-44) 05/20/19 05:48 POC ABG Base Excess -2 ((-2) - (+3)mmol/L) 05/18/19 04:41 ABG Base Excess -3.0 mmol/L (-2.0-3.0) L 05/20/19 05:48 ABG Hemoglobin 9.9 gm/dl (14.0-18.0) L 05/20/19 05:48 ABG Carboxyhemoglobin 1.6 % (0.0-5.0) 05/20/19 05:48 ABG Methemoglobin 0.6 % (0.0-1.5) 05/20/19 05:48 Oxyhemoglobin 92.5 % (95.0-99.0) L 05/20/19 05:48 FiO2 55 % 05/20/19 05:48 Sodium 136 mmol/L (137-145) L 05/20/19 04:00 Potassium 5.7 mmol/L (3.6-5.0) H 05/20/19 04:00 Chloride 96.3 mmol/L (98-107) L 05/20/19 04:00 Carbon Dioxide 22 mmol/L (22-30) 05/20/19 04:00 Anion Gap 23 mmol/L 05/20/19 04:00 BUN 125 mg/dL (9-20) H 05/20/19 04:00 Creatinine 8.3 mg/dL (0.8-1.5) H 05/20/19 04:00 Estimated GFR 9 ml/min 05/20/19 04:00 BUN/Creatinine Ratio 15 % 05/20/19 04:00 Glucose 106 mg/dL (75-100) H 05/20/19 04:00 POC Glucose 97 (70-105) 05/20/19 05:17 Osmolality 327 Mosm/kg 05/07/19 13:45 Uric Acid 18.0 mg/dL (3.5-7.6) H 05/07/19 13:45 Calcium 8.5 mg/dL (8.4-10.2) 05/20/19 04:00 Phosphorus 4.90 mg/dL (2.5-4.5) H 05/02/19 00:06 Magnesium 2.30 mg/dL (1.7-2.3) 05/02/19 00:06 Total Bilirubin 0.20 mg/dL (0.1-1.2) 05/10/19 05:00 AST 34 units/L (5-40) 05/10/19 05:00 ALT 35 units/L (7-56) 05/10/19 05:00 Alkaline Phosphatase 45 units/L (35-129) 05/10/19 05:00 Total Creatine Kinase 131 units/L (55-170) 05/02/19 04:41 CK-MB (CK-2) 5.2 ng/mL (0.0-4.0) H 05/02/19 04:41 CK-MB (CK-2) Rel Index 3.9 (0-4) 05/02/19 04:41 Troponin T 0.067 ng/mL (0.00-0.029) H D 05/02/19 04:41 NT-Pro-B Natriuret Pep 6831 pg/mL (0-450) H 05/01/19 Unknown Total Protein 6.1 g/dL (6.3-8.2) L 05/10/19 05:00 Albumin 2.5 g/dL (3.9-5) L 05/10/19 05:00 Albumin/Globulin Ratio 0.7 % 05/10/19 05:00 Triglycerides 173 mg/dL (2-149) H 05/17/19 Unknown Cholesterol 173 mg/dL (50-199) 05/02/19 00:06 LDL Cholesterol Direct 126 mg/dL (50-130) 05/02/19 00:06 HDL Cholesterol 18 mg/dL (40-59) L 05/02/19 00:06 Cholesterol/HDL Ratio 9.61 % 05/02/19 00:06 Procalcitonin 0.54 ng/mL (<0.15) 05/03/19 11:52 Urine Color Yellow (Yellow) 05/03/19 10:55 Urine Turbidity Turbid (Clear) 05/03/19 10:55 Urine pH 5.0 (5.0-7.0) 05/03/19 10:55 Ur Specific [place] 1.014 (1.003-1.030) 05/03/19 10:55 Urine Protein <15 mg/dl mg/dL (Negative) 05/03/19 10:55 Urine Glucose (UA) Neg mg/dL (Negative) 05/03/19 10:55 Urine Ketones Neg mg/dL (Negative) 05/03/19 10:55 Urine Blood Lg (Negative) 05/03/19 10:55 Urine Nitrite Neg (Negative) 05/03/19 10:55 Urine Bilirubin Neg (Negative) 05/03/19 10:55 Urine Urobilinogen < 2.0 mg/dL (<2.0) 05/03/19 10:55 Ur Leukocyte Esterase Mod (Negative) 05/03/19 10:55 Urine WBC (Auto) 33.0 /HPF (0.0-6.0) H 05/03/19 10:55 Urine RBC (Auto) 8.0 /HPF (0.0-6.0) 05/03/19 10:55 Urine Bacteria (Auto) 1+ /HPF (Negative) 05/03/19 10:55 Uric Acid Crystals 3+ 05/03/19 10:55 Urine Mucus Few /HPF 05/03/19 10:55 Urine Creatinine 292.8 mg/dL (0.1-20.0) H 05/07/19 22:40 Urine Sodium 11 mmol/L 05/07/19 22:40 Urine Total Protein 269 mg/dL (5-11.8) H 05/07/19 22:40 Vancomycin Trough 20.5 ug/mL (5.0-20.0) H 05/15/19 09:00 Random Vancomycin 11.5 ug/mL (0-40.0) 05/19/19 11:00 AMNA Screen Negative (Negative) 05/07/19 13:45 Hepatitis A IgM Ab Non-reactive (NonReactive) 05/07/19 13:45 Hep Bs Antigen Non-reactive (Negative) 05/07/19 13:45 Hep B Core IgM Ab Non-reactive (NonReactive) 05/07/19 13:45 Hepatitis C Antibody Non-reactive (NonReactive) 05/07/19 13:45 Active Medications - Current Medications Current Medications: Generic Name Dose Route Start Last Admin Trade Name Freq PRN Reason Stop Dose Admin Acetaminophen 650 mg 05/01/19 22:46 05/19/19 18:13 Tylenol PO 650 mg Q4H PRN Administration Pain MILD(1-3)/Fever >100.5/FREEMAN Albumin Human 25 gm 05/19/19 10:47 Alburx 25% (Albumin) IV ARIANE PRN Hypotension Lipase/Protease/Amylase 1 each 05/14/19 15:[address] 10,500 Unit FEEDTUBE PRN PRN For Clogged Feeding Tube Dextrose 50 gm 05/01/19 20:24 D50w (25gm) Vial IV Q30MIN PRN Hypoglycemia Protocol Enoxaparin Sodium 30 mg 05/16/19 10:00 05/19/19 10:10 Enoxaparin SUB-Q 30 mg QDAY VICKEY Administration Epoetin Hugo 10,000 unit 05/19/19 10:47 Procrit IV ARIANE PRN hemodialysis Famotidine 20 mg 05/16/19 10:00 05/19/19 10:10 Pepcid PO 20 mg DAILY VICKEY Administration Hydralazine HCl 20 mg 05/13/19 08:09 05/14/19 18:09 Apresoline IV 20 mg Q4HR PRN Administration SBP >/=160 Hydrophilic Ointment 1 applic 05/01/19 21:14 Vaseline Lip Therapy TP Q2HR PRN Dry Lips Fentanyl Citrate 2,000 mcg in 100 mls @ 10.195 mls/hr 05/01/19 22:00 05/20/19 02:27 Fentanyl Drip Premix IV 2 mcg/kg/hr TITR VICKEY 20.39 mls/hr Administration Protocol 1 MCG/KG/HR Propofol 1,000 mg in 100 mls @ 7.011 mls/hr 05/03/19 04:00 05/20/19 02:24 Diprivan 10 Mg/Ml IV 15 mcg/kg/min TITR VICKEY 21.033 mls/hr Administration Protocol 5 MCG/KG/MIN Norepinephrine 4 mg in 250 mls @ 7.5 mls/hr 05/03/19 18:00 05/20/19 08:04 Levophed Drip 4 Mg/Ns 250 Ml IV 0 mcg/min TITR VICKEY 0 mls/hr Titration Protocol 2 MCG/MIN Sodium Chloride 500 mls @ 10 mls/hr 05/06/19 15:00 Nacl 0.9% 500 Ml IV DIRECT VICKEY Metronidazole 500 mg in 100 mls @ 100 mls/hr 05/11/19 14:00 05/19/19 21:53 Flagyl 500 Mg/100 Ml IV 05/21/19 13:59 100 mls/hr Q8HR VICKEY Administration Protocol Nicardipine HCl 50 mg/ Sodium 250 mls @ 25 mls/hr 05/13/19 10:00 05/14/19 23:12 Chloride IV 0 mg/hr TITR VICKEY 0 mls/hr Titration Protocol 5 MG/HR Sodium Bicarbonate 150 meq/ 1,150 mls @ 75 mls/hr 05/18/19 11:30 05/20/19 02:22 Dextrose IV 75 mls/hr DIRECT VICKEY Administration Cefepime HCl 2 gm in 100 mls @ 200 mls/hr 05/18/19 11:00 05/19/19 10:10 Cefepime/Ns 2 Gm/100 Ml IV 200 mls/hr Q24HR VICKEY Administration Protocol Sodium Chloride 100 mls @ 999 mls/hr 05/19/19 10:47 05/19/19 13:48 Nacl 0.9% IV 999 mls/hr ARIANE PRN Administration Hypotension Labetalol HCl 100 mg 05/14/19 14:00 05/19/19 21:53 Labetalol PO Not Given Q8HR VICKEY Levetiracetam 750 mg 05/13/19 10:00 05/19/19 21:53 Keppra PO 750 mg BID VICKEY Administration Lorazepam 2 mg 05/06/19 06:22 05/10/19 16:17 Ativan IV 2 mg Q4H PRN Administration Seizures/AGITATION Multi-Ingred Cream/Lotion/Oil/Oint 1 applic 05/01/19 21:14 Artificial Tears Ophth Oint OU Q4HR PRN Dry Eye(s) Ondansetron HCl 4 mg 05/01/19 22:46 Zofran IV Q8H PRN Nausea And Vomiting Simple Syrup 15 ml 05/14/19 15:01 Simple Syrup FEEDTUBE PRN PRN Hypoglycemia Simple Syrup 30 ml 05/14/19 15:01 Simple Syrup FEEDTUBE PRN PRN Hypoglycemia Sodium Bicarbonate 325 mg 05/14/19 15:01 Sodium Bicarbonate FEEDTUBE PRN PRN For Clogged Feeding Tube Sodium Chloride 10 ml 05/02/19 10:00 05/19/19 10:11 Sodium Chloride Flush Syringe 10 Ml IV 10 ml BID VICKEY Administration Sodium Chloride 10 ml 05/01/19 22:46 05/05/19 02:28 Sodium Chloride Flush Syringe 10 Ml IV 10 ml PRN PRN Administration LINE FLUSH Nutrition/Malnutrition Assess - Dietary Evaluation Nutrition/Malnutrition Findings: Nutrition Notes Start: 05/04/19 12:54 Freq: Status: Active Protocol: Document 05/14/19 10:48 DW (Rec: 05/14/19 11:32 DW [id number]) Co-Sign 05/14/19 10:48 LP Nutrition Notes Initial or Follow up Reassessment Current Diagnosis Acute Kidney Injury,Sepsis, Respiratory Failure Current Diet Nepro 1.8 at 60ml/hr Labs/Tests Na 135 BUN 57 Cr 2.2 Pertinent Medications Propofol at 7.011 ml/hr (185 kcal) Height 6 ft 4 in Weight 227.5 kg [place] Body Weight (kg) 91.81 BMI 61.0 Weight Status Morbidly Obese Subjective/Other Information FU TF tolerance and Na labs Upon arrival noticed Nepro 1.8 running at goal of 50ml/hr Na lab did big jump from 05/11 of Na 145 to 135 today. Flush to decrease to 200ml qh4 Percent of energy/protein needs met: 86%/43% Burn Absent Trauma Absent Current % PO Negligible Minimum of two criteria No physical signs of malnutrition #1 Nutrition Diagnosis Inadequate oral intake Diagnosis Progress(for reassessment Continues documentation) Is patient on ventilator? Yes Is Patient Ambulatory and/or Out of Bed No REE-([place]-confined to bed) 3986.244 Kcal/Kg value to use for calculation 11 Approximate Energy Requirements Using 2503 kcal/Kg Calculation Used for Recommendations Kcal/kg Additional Notes PRO needs: 225 g (up to 2.5 g/ kg 91.81 IBW) Fluid needs: 1 ml/kcal Nutrition Intervention Change Diet Order: Continue TF Nutrition Support: Nepro 1.8 at 50 ml/hr flush 200 ml q4hr once Kcal 2,160 Protein (gm) 97 Fluid (mL) 872 Goal #1 TF tolerance Goal #2 Meet at least 75% kcal/PRO needs via TF Anticipated Discharge Needs: Unable to determine at this time Follow-Up By: 05/21/19 Additional Comments F/U for TF tolerance
[2019-05-20] MEDS: SODIUM CHLORIDE 0.9% 100 ML IV PRN (08:14)
[2019-05-20] MEDS: levETIRAcetam 500 MG/5 ML ORAL LIQD PO SCH ×2 (09:35→21:25)
[2019-05-20] MEDS: FAMOTIDINE 20 MG TAB PO SCH (09:38)
[2019-05-20] MEDS: ENOXAPARIN 30 MG/0.3 ML INJ SUB-Q SCH (09:39)
[2019-05-20] MEDS: metroNIDAZOLE/NS 500 MG/100 ML 500 MG/100 ML BAG IV SCH ×3 (09:40→21:24)
--- NOTE | 2019-05-20 10:33 | Progress Note ---
Assessment and Plan Cultures: Blood cultures 05/11/19: no growth thus far Blood cultures 05/18/19 pending Sputum culture 05/11/19: no growth thus far urine culture: no growth resp culture: no growth Blood culture 05/18/2019: no growth thus far A/P: 34-year-old male with obesity admitted with: #Fever, SIRS with shock: Patient was afebrile for the first 2 days of hospitalization, then he developed a fever of 101.2F. ?aspiration related. Apparently was using CPAP. Now febrile again, ?UTI. UA showed pyuria, had indwelling Berkowitz which was removed. Urine culture with no growth. Fevers now rec urred since 05/17. Unclear etiology. Blood cultures repeated. 05/18 CXR with greater vascular congestion, pleural effusions. Off pressors for 24h. #Acute hypoxic hypercapneic respiratory failure, possibly obesity hypoventilation syndrome: on the vent. Pulmonary managing. #Morbid obesity #CARLA: creatinine elevated. dose abx accordingly. Now on HD via vascath #Elevated LFTs: RUQ US showed fatty liver, small GB sludge. Improving. #Acute encephalopathy with ?seizure activity: persistent fevers. Has been rece iving empiric meningitis coverage Recs: - repeat blood cx, vascath dressing contaminated with saliva - obtain sputum and UA/urine cx - continue cefepime - continue metronidazole for aspiration concern will follow MD Ayse [facility] ([facility]) Office [phone] Subjective Date of service: 05/20/19 Principal diagnosis: HF; acute hypoxemic resp failure, SIRS, CARLA Interval history: Remains on the vent tmax 100.7, off pressors Objective - Constitutional Vitals: Vital Signs Temp Pulse Resp BP Pulse Ox 99.3 F 104 H 30 H 168/64 88 05/20/19 08:30 05/20/19 09:45 05/20/19 09:45 05/20/19 09:45 05/20/19 09:45 Temperature -Last 24 Hours Temperature 99.3 F Temperature 99.3 F Temperature 99.7 F Temperature 100.7 F Temperature 100.3 F Temperature 101.1 F Temperature 101.2 F - Labs CBC & Chem 7: 05/20/19 04:00 05/20/19 04:00 Labs: Abnormal lab results 05/20/19 05/20/19 05/20/19 Range/Units 04:00 04:00 05:48 RBC 3.40 L (3.65-5.03) M/mm3 Hgb 9.2 L (11.8-15.2) gm/dl Hct 28.6 L (35.5-45.6) % MCH 27 L (28-32) pg RDW 17.6 H (13.2-15.2) % Lymphocytes % (Manual) 11.0 L (13.4-35.0) % Eosinophils % (Manual) 14.0 H (0.0-4.3) % Lymphocytes # (Manual) 1.1 L (1.2-5.4) K/mm3 Eosinophils # (Manual) 1.4 H (0.0-0.4) K/mm3 ABG pH 7.281 L (7.350-7.450) pH Units ABG pO2 78.7 L (80.0-90.0) mm Hg ABG O2 Saturation 94.5 L (95.0-99.0) % ABG Base Excess -3.0 L (-2.0-3.0) mmol/L ABG Hemoglobin 9.9 L (14.0-18.0) gm/dl Oxyhemoglobin 92.5 L (95.0-99.0) % Sodium 136 L (137-145) mmol/L Potassium 5.7 H (3.6-5.0) mmol/L Chloride 96.3 L (98-107) mmol/L BUN 125 H (9-20) mg/dL Creatinine 8.3 H (0.8-1.5) mg/dL Glucose 106 H (75-100) mg/dL
[2019-05-20] MEDS ORDERED: SCOPOLAMINE TRANSDERMAL PATCH 72 HR TD SCH (12:00)
[2019-05-20 12:43] LABS: Bacteria,Urine 1+ /HPF (Negative); Bilirubin,Urine NEG (Negative); Blood,Urine LG (Negative); Mucus,Urine FEW /HPF; Urobilinogen,Urine < 2.0 mg/dL (<2.0)
[2019-05-20 12:52] LABS: Color,Urine Yellow (Yellow)
[2019-05-20] MEDS: CEFEPIME/NS 2 GM/100 ML 2 GM/100 ML BAG IV SCH (13:35)
--- NOTE | 2019-05-20 16:51 | Progress Note ---
Assessment and Plan - Patient Problems (1) Acute kidney injury Current Visit: Yes Status: Acute Plan to address problem: Acute kidney injury worsening Baseline creatinine unknown Kidney function is worsening Chest x-ray with concern for Bibasilar haziness? Atelectasis Renal function worsened with diuresis ? Volume depletion Received bolus of saline received saline infusion at 125cc/hr creatinine improved from 3.5 to 3.2 to 2.4 mg/dl recent worsening Elevated vancomycin and subsquent acute tubular injury continue hemodialysis. Repeat BMP (2) Hypercapnic respiratory failure Current Visit: Yes Status: Acute Qualifiers: Chronicity: acute on chronic Qualified Code(s): J96.22 - Acute and chronic respiratory failure with hypercapnia Plan to address problem: Acute on chronic respiratory failure with hypercapnia Patient is currently intubated chest x-ray with some concern for bibasilar h aziness Given morbid obesity. Obesity hypoventilation Wean oxygen as tolerated (3) Anemia Current Visit: Yes Status: Acute Plan to address problem: Mild anemia Monitor CBC (4) Fever Current Visit: Yes Status: Acute Plan to address problem: Fever workup for infectious causes Infectious disease is following (5) Hyperkalemia Current Visit: Yes Status: Acute Plan to address problem: hyperkalemia ;resolved. Will initiate dialysis. Subjective Principal diagnosis: HF; acute hypoxemic resp failure, SIRS, CARLA Interval history: 34-year-old gentleman with morbid obesity, found with cyanosis difficulty with breathing and brought to the emergency room he required intubation review of systems unobtainable patient remains intubated and FiO2 100% he has had worsening renal function nephrology consulted for this. He was subsequently found to have a fever infectious diseases is followingshe initially related improvement. Acute kidney injury, subsequent worseningin the setting of elevated vancomycin levels Patient seen to be remains intubated and sedated reduced urine output and place i attest I saw the patient on dialysis Objective - Vital Signs Vital signs: Vital Signs - 12hr 05/20/19 05/20/19 05/20/19 04:45 05:00 05:15 Temperature Pulse Rate 103 H 101 H 102 H Pulse Rate [ From Monitor] Respiratory 15 14 26 H Rate Blood Pressure 109/47 116/49 110/52 O2 Sat by Pulse 95 95 94 Oximetry O2 Sat by Pulse Oximetry [ Anterior Bilateral Throughout] O2 Sat by Pulse Oximetry [ Bilateral] 05/20/19 05/20/1919 05:30 05:45 06:00 Temperature Pulse Rate 100 H 102 H 98 H Pulse Rate [ From Monitor] Respiratory 18 28 H 14 Rate Blood Pressure 114/50 110/52 117/45 O2 Sat by Pulse 94 93 93 Oximetry O2 Sat by Pulse Oximetry [ Anterior Bilateral Throughout] O2 Sat by Pulse Oximetry [ Bilateral] 05/20/19 05/20/19 05/20/19 06:15 06:30 06:45 Temperature Pulse Rate 98 H 97 H 103 H Pulse Rate [ From Monitor] Respiratory 17 20 14 Rate Blood Pressure 112/48 113/55 122/65 O2 Sat by Pulse 93 94 94 Oximetry O2 Sat by Pulse Oximetry [ Anterior Bilateral Throughout] O2 Sat by Pulse Oximetry [ Bilateral] 05/20/19 05/20/19 05/20/19 07:01 07:15 07:31 Temperature Pulse Rate 105 H 105 H Pulse Rate [ From Monitor] Respiratory 19 Rate Blood Pressure 122/65 133/68 133/68 O2 Sat by Pulse 96 Oximetry O2 Sat by Pulse Oximetry [ Anterior Bilateral Throughout] O2 Sat by Pulse Oximetry [ Bilateral] 05/20/19 05/20/19 05/20/19 07:45 07:48 08:00 Temperature 99.3 F Pulse Rate 104 H 106 H Pulse Rate [ 104 H From Monitor] Respiratory 29 H 23 Rate Blood Pressure 134/55 132/56 O2 Sat by Pulse 97 95 Oximetry O2 Sat by Pulse Oximetry [ Anterior Bilateral Throughout] O2 Sat by Pulse Oximetry [ Bilateral] 05/20/19 05/20/19 05/20/19 08:15 08:16 08:30 Temperature 99.3 F Pulse Rate 104 H 104 H 101 H Pulse Rate [ From Monitor] Respiratory 27 H 24 Rate Blood Pressure 135/50 135/50 125/48 O2 Sat by Pulse 95 90 Oximetry O2 Sat by Pulse 93 Oximetry [ Anterior Bilateral Throughout] O2 Sat by Pulse 93 Oximetry [ Bilateral] 05/20/19 05/20/19 05/20/19 08:40 08:45 09:00 Temperature Pulse Rate 99 H 96 H 97 H Pulse Rate [ From Monitor] Respiratory 24 22 Rate Blood Pressure 135/41 143/38 128/41 O2 Sat by Pulse 92 93 Oximetry O2 Sat by Pulse Oximetry [ Anterior Bilateral Throughout] O2 Sat by Pulse Oximetry [ Bilateral] 12/05/20/19 05/20/19 09:15 09:30 09:31 Temperature Pulse Rate 97 H 102 H 102 H Pulse Rate [ From Monitor] Respiratory 25 H 17 Rate Blood Pressure 128/41 119/36 119/36 O2 Sat by Pulse 91 96 Oximetry O2 Sat by Pulse Oximetry [ Anterior Bilateral Throughout] O2 Sat by Pulse Oximetry [ Bilateral] 05/20/19 05/20/19 05/20/19 09:45 10:00 10:15 Temperature Pulse Rate 104 H 102 H 97 H Pulse Rate [ From Monitor] Respiratory 30 H 28 H 26 H Rate Blood Pressure 168/64 148/45 148/45 O2 Sat by Pulse 88 91 90 Oximetry O2 Sat by Pulse Oximetry [ Anterior Bilateral Throughout] O2 Sat by Pulse Oximetry [ Bilateral] 05/20/19 05/20/19 05/20/19 10:30 10:45 11:00 Temperature Pulse Rate 93 H 93 H 91 H Pulse Rate [ From Monitor] Respiratory 26 H 25 H 22 Rate Blood Pressure 119/42 119/42 119/37 O2 Sat by Pulse 92 91 93 Oximetry O2 Sat by Pulse Oximetry [ Anterior Bilateral Throughout] O2 Sat by Pulse Oximetry [ Bilateral] 05/20/19 05/20/19 05/20/19 11:01 11:15 11:30 Temperature Pulse Rate 91 H 90 92 H Pulse Rate [ From Monitor] Respiratory 27 H 23 Rate Blood Pressure 119/37 121/39 129/46 O2 Sat by Pulse 96 97 Oximetry O2 Sat by Pulse Oximetry [ Anterior Bilateral Throughout] O2 Sat by Pulse Oximetry [ Bilateral] 05/20/19 05/20/19 05/20/19 11:34 11:45 12:00 Temperature 99.4 F Pulse Rate 83 104 H 105 H Pulse Rate [ 104 H From Monitor] Respiratory 26 H Rate Blood Pressure 129/46 129/46 O2 Sat by Pulse 96 Oximetry O2 Sat by Pulse Oximetry [ Anterior Bilateral Throughout] O2 Sat by Pulse Oximetry [ Bilateral] 05/20/19 05/20/19 05/20/19 12:01 12:06 12:15 Temperature Pulse Rate 104 H 106 H 101 H Pulse Rate [ From Monitor] Respiratory 22 15 Rate Blood Pressure 161/56 161/56 161/56 O2 Sat by Pulse 96 97 Oximetry O2 Sat by Pulse Oximetry [ Anterior Bilateral Throughout] O2 Sat by Pulse Oximetry [ Bilateral] 05/20/19 05/20/19 05/20/19 12:31 12:35 12:45 Temperature 99.4 F Pulse Rate 91 H 90 90 Pulse Rate [ From Monitor] Respiratory 26 H 22 25 H Rate Blood Pressure 106/29 123/39 123/39 O2 Sat by Pulse 96 96 Oximetry O2 Sat by Pulse Oximetry [ Anterior Bilateral Throughout] O2 Sat by Pulse 93 Oximetry [ Bilateral] 05/20/19 05/20/19 05/20/19 13:01 13:15 13:30 Temperature Pulse Rate 100 H 102 H 94 H Pulse Rate [ From Monitor] Respiratory 19 25 H 27 H Rate Blood Pressure 74/46 74/46 97/39 O2 Sat by Pulse 95 94 94 Oximetry O2 Sat by Pulse Oximetry [ Anterior Bilateral Throughout] O2 Sat by Pulse Oximetry [ Bilateral] 05/20/19 05/20/19 05/20/19 13:45 14:00 14:15 Temperature Pulse Rate 91 H 94 H 92 H Pulse Rate [ From Monitor] Respiratory 25 H 25 H 25 H Rate Blood Pressure 101/47 98/50 107/47 O2 Sat by Pulse 95 95 96 Oximetry O2 Sat by Pulse Oximetry [ Anterior Bilateral Throughout] O2 Sat by Pulse Oximetry [ Bilateral] 05/20/19 05/20/19 05/20/19 14:30 14:45 15:00 Temperature Pulse Rate 97 H 97 H 98 H Pulse Rate [ From Monitor] Respiratory 27 H 27 H 27 H Rate Blood Pressure 120/58 114/60 112/60 O2 Sat by Pulse 94 93 93 Oximetry O2 Sat by Pulse Oximetry [ Anterior Bilateral Throughout] O2 Sat by Pulse Oximetry [ Bilateral] 05/20/19 05/20/19 05/20/19 15:15 15:30 15:41 Temperature Pulse Rate 99 H 99 H 100 H Pulse Rate [ From Monitor] Respiratory 26 H 16 Rate Blood Pressure 107/54 106/46 106/46 O2 Sat by Pulse 93 94 Oximetry O2 Sat by Pulse Oximetry [ Anterior Bilateral Throughout] O2 Sat by Pulse Oximetry [ Bilateral] 05/20/19 05/20/19 15:45 16:00 Temperature Pulse Rate 99 H 101 H Pulse Rate [ 101 H From Monitor] Respiratory 14 25 H Rate Blood Pressure 115/54 103/46 O2 Sat by Pulse 95 94 Oximetry O2 Sat by Pulse Oximetry [ Anterior Bilateral Throughout] O2 Sat by Pulse Oximetry [ Bilateral] - General Appearance General appearance: well-developed, well-nourished EENT: ATNC, PERRL Neck: no JVD Respiratory: Present: Clear to Ascultation Cardiology: regular, S1S2 Gastrointestinal: normal, normoactive bowel sounds Integumentary: no rash Neurologic: confused, disoriented, CN 3-12 intact Psychiatric: mood/affect appropriate, depressed - Lab 05/20/19 04:00 05/20/19 04:00 Most recent lab results ABG pH 7.281 pH Units (7.350-7.450) L 05/20/19 05:48 ABG pCO2 52.0 mm Hg 05/20/19 05:48 ABG pO2 78.7 mm Hg (80.0-90.0) L 05/20/19 05:48 ABG HCO3 24.0 mmol/L (20.0-26.0) 05/20/19 05:48 ABG O2 Saturation 94.5 % (95.0-99.0) L 05/20/19 05:48 Calcium 8.5 mg/dL (8.4-10.2) 05/20/19 04:00 Phosphorus 4.90 mg/dL (2.5-4.5) H 05/02/19 00:06 Magnesium 2.30 mg/dL (1.7-2.3) 05/02/19 00:06 Urine Creatinine 292.8 mg/dL (0.1-20.0) H 05/07/19 22:40 Urine Sodium 11 mmol/L 05/07/19 22:40 Urine Total Protein 269 mg/dL (5-11.8) H 05/07/19 22:40 - Imaging Chest x-ray: image reviewed (reviewed cxr with left hazy opacities ) Medications & Allergies - Medications Allergies/Adverse Reactions: Allergies No Known Allergies Allergy (Verified 05/01/19 20:27) Home Medications: Home Medications Medication Instructions Recorded Confirmed Last Taken Type No Known Home Medications [No 05/03/19 05/03/19 Unknown History Reported Home Medications] Active Medications: Generic Name Dose Route Start Last Admin Trade Name Freq PRN Reason Stop Dose Admin Acetaminophen 650 mg 05/01/19 22:46 05/19/19 18:13 Tylenol PO 650 mg Q4H PRN Administration Pain MILD(1-3)/Fever >100.5/FREEMAN Albumin Human 25 gm 05/19/19 10:47 Alburx 25% (Albumin) IV ARIANE PRN Hypotension Lipase/Protease/Amylase 1 each 05/14/19 15:[address] 10,500 Unit FEEDTUBE PRN PRN For Clogged Feeding Tube Dextrose 50 gm 05/01/19 20:24 D50w (25gm) Vial IV Q30MIN PRN Hypoglycemia Protocol Enoxaparin Sodium 30 mg 05/16/19 10:00 05/20/19 09:39 Enoxaparin SUB-Q 30 mg QDAY VICKEY Administration Epoetin Hugo 10,000 unit 05/19/19 10:47 Procrit IV ARIANE PRN hemodialysis Famotidine 20 mg 05/16/19 10:00 05/20/19 09:38 Pepcid PO 20 mg DAILY VICKEY Administration Hydralazine HCl 20 mg 05/13/19 08:09 05/14/19 18:09 Apresoline IV 20 mg Q4HR PRN Administration SBP >/=160 Hydrophilic Ointment 1 applic 05/01/19 21:14 Vaseline Lip Therapy TP Q2HR PRN Dry Lips Fentanyl Citrate 2,000 mcg in 100 mls @ 10.195 mls/hr 05/01/19 22:00 05/20/19 12:58 Fentanyl Drip Premix IV 2 mcg/kg/hr TITR VICKEY 20.39 mls/hr Administration Protocol 1 MCG/KG/HR Propofol 1,000 mg in 100 mls @ 7.011 mls/hr 05/03/19 04:00 05/20/19 15:48 Diprivan 10 Mg/Ml IV 10 mcg/kg/min TITR VICKEY 14.022 mls/hr Titration Protocol 5 MCG/KG/MIN Norepinephrine 4 mg in 250 mls @ 7.5 mls/hr 05/03/19 18:00 05/20/19 08:04 Levophed Drip 4 Mg/Ns 250 Ml IV 0 mcg/min TITR VICKEY 0 mls/hr Titration Protocol 2 MCG/MIN Sodium Chloride 500 mls @ 10 mls/hr 05/06/19 15:00 Nacl 0.9% 500 Ml IV DIRECT VICKEY Metronidazole 500 mg in 100 mls @ 100 mls/hr 05/11/19 14:00 05/20/19 14:46 Flagyl 500 Mg/100 Ml IV 100 mls/hr Q8HR VICKEY Administration Protocol Nicardipine HCl 50 mg/ Sodium 250 mls @ 25 mls/hr 05/13/19 10:00 05/14/19 23:12 Chloride IV 0 mg/hr TITR VICKEY 0 mls/hr Titration Protocol 5 MG/HR Sodium Bicarbonate 150 meq/ 1,150 mls @ 75 mls/hr 05/18/19 11:30 05/20/19 02:22 Dextrose IV 75 mls/hr DIRECT VICKEY Administration Cefepime HCl 2 gm in 100 mls @ 200 mls/hr 05/18/19 11:00 05/20/19 13:35 Cefepime/Ns 2 Gm/100 Ml IV 200 mls/hr Q24HR VICKEY Administration Protocol Sodium Chloride 100 mls @ 999 mls/hr 05/19/19 10:47 05/20/19 08:14 Nacl 0.9% IV 999 mls/hr ARIANE PRN Administration Hypotension Labetalol HCl 100 mg 05/14/19 14:00 05/20/19 15:41 Labetalol PO Not Given Q8HR VICKEY Levetiracetam 750 mg 05/13/19 10:00 05/20/19 09:35 Keppra PO 750 mg BID VICKEY Administration Lorazepam 2 mg 05/06/19 06:22 05/10/19 16:17 Ativan IV 2 mg Q4H PRN Administration Seizures/AGITATION Multi-Ingred Cream/Lotion/Oil/Oint 1 applic 05/01/19 21:14 Artificial Tears Ophth Oint OU Q4HR PRN Dry Eye(s) Ondansetron HCl 4 mg 05/01/19 22:46 Zofran IV Q8H PRN Nausea And Vomiting Scopolamine 1 each 05/20/19 12:00 05/20/19 12:52 Transderm-Scop TD 1 each Q72HR VICKEY Administration Simple Syrup 15 ml 05/14/19 15:01 Simple Syrup FEEDTUBE PRN PRN Hypoglycemia Simple Syrup 30 ml 05/14/19 15:01 Simple Syrup FEEDTUBE PRN PRN Hypoglycemia Sodium Bicarbonate 325 mg 05/14/19 15:01 Sodium Bicarbonate FEEDTUBE PRN PRN For Clogged Feeding Tube Sodium Chloride 10 ml 05/02/19 10:00 05/20/19 09:38 Sodium Chloride Flush Syringe 10 Ml IV 10 ml BID VICKEY Administration Sodium Chloride 10 ml 05/01/19 22:46 05/05/19 02:28 Sodium Chloride Flush Syringe 10 Ml IV 10 ml PRN PRN Administration LINE FLUSH
--- NOTE | 2019-05-20 22:13 | Progress Note ---
Assessment and Plan Imp: 1. Acute respiratory failure, hypoxia 2. A/C respiratory failure, hypercapnea 3. LANDON/OHS/Morbid obesity 4. CARLA 5. Pulm HTN 6. Sepsis -> ? Pneumonia, ? Meningitis 7. Seizures Rec: 1. Wean PEEP again slowly as tolerated, to keep sats 88% or >; FiO2 currently at 50% 2. Sedation same 3. May need trach though poor oxygenation currently precludes 4. Recommend aggressive volume removal with HD to try to help with oxygenation and ventilator weaning 5. ABX per ID; fevers better; cultures negative 6. Keppra BID 7. TFs as tolerated; DVT and GI PPx 8. Still with poor prognosis; patient w/ marginal improvement since admission 9. CCT 31 minutes Plan of care reviewed with mother, she understands/agrees Subjective Date of service: 05/20/19 Principal diagnosis: HF; acute hypoxemic resp failure, SIRS, CARLA Interval history: BP better. Off pressors. Sedated on Propofol and Fentanyl. Had HD this AM. Active Medications Acetaminophen (Tylenol) 650 mg PO Q4H PRN PRN Reason: Pain MILD(1-3)/Fever >100.5/FREEMAN Last Admin: 05/19/19 18:13 Dose: 650 mg Documented by: Albumin Human ([place]x 25% (Albumin)) 25 gm IV ARIANE PRN PRN Reason: Hypotension Lipase/Protease/Amylase (Pancreaze Dr 10,500 Unit) 1 each FEEDTUBE PRN PRN PRN Reason: For Clogged Feeding Tube Dextrose (D50w (25gm) Vial) 50 gm IV Q30MIN PRN; Protocol PRN Reason: Hypoglycemia Enoxaparin Sodium (Enoxaparin) 30 mg SUB-Q QDAY [facility] Last Admin: 05/20/19 09:39 Dose: 30 mg Documented by: Epoetin Hugo (Procrit) 10,000 unit IV ARIANE PRN PRN Reason: hemodialysis Famotidine (Pepcid) 20 mg PO DAILY [facility] Last Admin: 05/20/19 09:38 Dose: 20 mg Documented by: Hydralazine HCl (Apresoline) 20 mg IV Q4HR PRN PRN Reason: SBP >/=160 Last Admin: 05/14/19 18:09 Dose: 20 mg Documented by: Hydrophilic Ointment (Vaseline Lip Therapy) 1 applic TP Q2HR PRN PRN Reason: Dry Lips Fentanyl Citrate (Fentanyl Drip Premix) 2,000 mcg in 100 mls @ 10.195 mls/hr IV TITR VICKEY; Protocol Last Admin: 05/20/19 21:24 Dose: 2 mcg/kg/hr, 20.39 mls/hr Documented by: Propofol (Diprivan 10 Mg/Ml) 1,000 mg in 100 mls @ 7.011 mls/hr IV TITR VICKEY; Protocol Last Admin: 05/20/19 20:03 Dose: 15 mcg/kg/min, 21.033 mls/hr Documented by: Norepinephrine (Levophed Drip 4 Mg/Ns 250 Ml) 4 mg in 250 mls @ 7.5 mls/hr IV TITR VICKEY; Protocol Last Titration: 05/20/19 08:04 Dose: 0 mcg/min, 0 mls/hr Documented by: Sodium Chloride (Nacl 0.9% 500 Ml) 500 mls @ 10 mls/hr IV DIRECT [facility]KEY Metronidazole (Flagyl 500 Mg/100 Ml) 500 mg in 100 mls @ 100 mls/hr IV Q8HR [facility]; Protocol Last Admin: 05/20/19 21:24 Dose: 100 mls/hr Documented by: Nicardipine HCl 50 mg/ Sodium (Chloride) 250 mls @ 25 mls/hr IV TITR VICKEY; Protocol Last Titration: 05/14/19 23:12 Dose: 0 mg/hr, 0 mls/hr Documented by: Sodium Bicarbonate 150 meq/ (Dextrose) 1,150 mls @ 75 mls/hr IV DIRECT VICKEY Last Admin: 05/20/19 19:12 Dose: 75 mls/hr Documented by: Cefepime HCl (Cefepime/Ns 2 Gm/100 Ml) 2 gm in 100 mls @ 200 mls/hr IV Q24HR [facility]; Protocol Last Infusion: 05/20/19 20:05 Dose: Infused Documented by: Sodium Chloride (Nacl 0.9%) 100 mls @ 999 mls/hr IV ARIANE PRN PRN Reason: Hypotension Last Admin: 05/20/19 08:14 Dose: 999 mls/hr Documented by: Labetalol HCl (Labetalol) 100 mg PO Q8HR [facility] Last Admin: 05/20/19 21:26 Dose: Not Given Documented by: Levetiracetam (Keppra) 750 mg PO BID [facility] Last Admin: 05/20/19 21:25 Dose: 750 mg Documented by: Lorazepam (Ativan) 2 mg IV Q4H PRN PRN Reason: Seizures/AGITATION Last Admin: 05/10/19 16:17 Dose: 2 mg Documented by: Multi-Ingred Cream/Lotion/Oil/Oint (Artificial Tears Ophth Oint) 1 applic OU Q4HR PRN PRN Reason: Dry Eye(s) Ondansetron HCl (Zofran) 4 mg IV Q8H PRN PRN Reason: Nausea And Vomiting Scopolamine (Transderm-Scop) 1 each TD Q72HR [facility] Last Admin: 05/20/19 12:52 Dose: 1 each Documented by: Simple Syrup (Simple Syrup) 15 ml FEEDTUBE PRN PRN PRN Reason: Hypoglycemia Simple Syrup (Simple Syrup) 30 ml FEEDTUBE PRN PRN PRN Reason: Hypoglycemia Sodium Bicarbonate (Sodium Bicarbonate) 325 mg FEEDTUBE PRN PRN PRN Reason: For Clogged Feeding Tube Sodium Chloride (Sodium Chloride Flush Syringe 10 Ml) 10 ml IV BID [facility] Last Admin: 05/20/19 21:25 Dose: 10 ml Documented by: Sodium Chloride (Sodium Chloride Flush Syringe 10 Ml) 10 ml IV PRN PRN PRN Reason: LINE FLUSH Last Admin: 05/05/19 02:28 Dose: 10 ml Documented by: Objective Vital Signs - 12hr 05/20/19 05/20/19 05/20/19 10:15 10:30 10:45 Temperature Pulse Rate 97 H 93 H 93 H Pulse Rate [ From Monitor] Respiratory 26 H 26 H 25 H Rate Blood Pressure 148/45 119/42 119/42 O2 Sat by Pulse 90 92 91 Oximetry O2 Sat by Pulse Oximetry [ Bilateral] 05/20/19 05/20/19 05/20/19 11:00 11:01 11:15 Temperature Pulse Rate 91 H 91 H 90 Pulse Rate [ From Monitor] Respiratory 22 27 H Rate Blood Pressure 119/37 119/37 121/39 O2 Sat by Pulse 93 96 Oximetry O2 Sat by Pulse Oximetry [ Bilateral] 05/20/19 05/20/19 05/20/19 11:30 11:34 11:45 Temperature Pulse Rate 92 H 83 104 H Pulse Rate [ From Monitor] Respiratory 23 26 H Rate Blood Pressure 129/46 129/46 129/46 O2 Sat by Pulse 97 96 Oximetry O2 Sat by Pulse Oximetry [ Bilateral] 05/20/19 05/20/19 05/20/19 12:00 12:01 12:06 Temperature 99.4 F Pulse Rate 105 H 104 H 106 H Pulse Rate [ 104 H From Monitor] Respiratory 22 Rate Blood Pressure 161/56 161/56 O2 Sat by Pulse 96 Oximetry O2 Sat by Pulse Oximetry [ Bilateral] 05/20/19 05/20/19 05/20/19 12:15 12:31 12:35 Temperature 99.4 F Pulse Rate 101 H 91 H 90 Pulse Rate [ From Monitor] Respiratory 15 26 H 22 Rate Blood Pressure 161/56 106/29 123/39 O2 Sat by Pulse 97 96 Oximetry O2 Sat by Pulse 93 Oximetry [ Bilateral] 05/20/19 05/20/19 05/20/19 12:45 13:01 13:15 Temperature Pulse Rate 90 100 H 102 H Pulse Rate [ From Monitor] Respiratory 25 H 19 25 H Rate Blood Pressure 123/39 74/46 74/46 O2 Sat by Pulse 96 95 94 Oximetry O2 Sat by Pulse Oximetry [ Bilateral] 05/20/19 05/20/19 05/20/19 13:30 13:45 14:00 Temperature Pulse Rate 94 H 91 H 94 H Pulse Rate [ From Monitor] Respiratory 27 H 25 H 25 H Rate Blood Pressure 97/39 101/47 98/50 O2 Sat by Pulse 94 95 95 Oximetry O2 Sat by Pulse Oximetry [ Bilateral] 05/20/19 05/20/19 05/20/19 14:15 14:30 14:45 Temperature Pulse Rate 92 H 97 H 97 H Pulse Rate [ From Monitor] Respiratory 25 H 27 H 27 H Rate Blood Pressure 107/47 120/58 114/60 O2 Sat by Pulse 96 94 93 Oximetry O2 Sat by Pulse Oximetry [ Bilateral] 05/20/19 05/20/19 05/20/19 15:00 15:15 15:30 Temperature Pulse Rate 98 H 99 H 99 H Pulse Rate [ From Monitor] Respiratory 27 H 26 H 16 Rate Blood Pressure 112/60 107/54 106/46 O2 Sat by Pulse 93 93 94 Oximetry O2 Sat by Pulse Oximetry [ Bilateral] 05/20/19 05/20/19 05/20/19 15:41 15:45 16:00 Temperature 98.9 F Pulse Rate 100 H 99 H 101 H Pulse Rate [ 101 H From Monitor] Respiratory 14 25 H Rate Blood Pressure 106/46 115/54 103/46 O2 Sat by Pulse 95 94 Oximetry O2 Sat by Pulse Oximetry [ Bilateral] 05/20/19 05/20/19 05/20/19 16:15 16:30 16:45 Temperature Pulse Rate 101 H 99 H 97 H Pulse Rate [ From Monitor] Respiratory 24 28 H 26 H Rate Blood Pressure 104/50 106/48 103/46 O2 Sat by Pulse 95 95 96 Oximetry O2 Sat by Pulse Oximetry [ Bilateral] 05/20/19 05/20/19 05/20/19 17:00 17:15 17:30 Temperature Pulse Rate 103 H 102 H 100 H Pulse Rate [ From Monitor] Respiratory 26 H 29 H 17 Rate Blood Pressure 117/67 110/57 103/42 O2 Sat by Pulse 96 96 95 Oximetry O2 Sat by Pulse Oximetry [ Bilateral] 05/20/19 05/20/19 05/20/19 17:45 18:00 18:15 Temperature Pulse Rate 99 H 99 H 94 H Pulse Rate [ From Monitor] Respiratory 22 24 26 H Rate Blood Pressure 103/47 104/51 100/44 O2 Sat by Pulse 95 96 96 Oximetry O2 Sat by Pulse Oximetry [ Bilateral] 05/20/19 05/20/19 05/20/19 19:46 19:51 21:26 Temperature 98.1 F Pulse Rate 93 H 94 H Pulse Rate [ From Monitor] Respiratory Rate Blood Pressure 98/40 99/44 O2 Sat by Pulse 97 Oximetry O2 Sat by Pulse Oximetry [ Bilateral] Constitutional: other (morbidly obese male, sedated on vent, orally intubated) Eyes: non-icteric ENT: oropharynx moist, other Neck: other (extremely large in circumference) Effort: normal Ascultation: Bilateral: diminished breath sounds (secondary to body habitus) Cardiovascular: regular rate and rhythm (no mrg) Gastrointestinal: normoactive bowel sounds, non-tender, other (obese) Integumentary: other (L hand is wrapped) Extremities: no cyanosis, pink and warm, other (1+ generalized edema) Neurologic: unable to assess Psychiatric: other (unable to assess) CBC and BMP: 05/20/19 04:00 05/20/19 04:00 ABG, PT/INR, D-dimer: ABG POC ABG pH 7.260 (7.35-7.45) L 05/18/19 04:41 ABG pH 7.281 pH Units (7.350-7.450) L 05/20/19 05:48 POC ABG pCO2 54.9 (35-45) H 05/18/19 04:41 ABG pCO2 52.0 mm Hg 05/20/19 05:48 POC ABG pO2 80 (80-105) 05/18/19 04:41 ABG pO2 78.7 mm Hg (80.0-90.0) L 05/20/19 05:48 POC ABG HCO3 24.6 (22-26 mml/L) 05/18/19 04:41 POC ABG Total CO2 26 (23-27mmol/L) 05/18/19 04:41 POC ABG O2 Sat 93 05/18/19 04:41 ABG O2 Saturation 94.5 % (95.0-99.0) L 05/20/19 05:48 PT/INR, D-dimer PT 15.4 Sec. (12.2-14.9) H 05/01/19 Unknown INR 1.23 (0.87-1.13) H 05/01/19 Unknown Abnormal lab findings: Abnormal Labs 05/01/19 05/01/19 05/01/19 17:50 19:26 22:36 WBC RBC Hgb Hct MCV MCH MCHC RDW Lymph % (Auto) [place] % (Auto) Eos % (Auto) Lymph # [place] # Eos # Seg Neutrophils % Seg Neuts % (Manual) Lymphocytes % (Manual) Monocytes % (Manual) Eosinophils % (Manual) Nucleated RBC % Seg Neutrophils # Lymphocytes # (Manual) Monocytes # (Manual) Eosinophils # (Manual) PT INR APTT POC ABG pH 7.272 L 7.331 L ABG pH POC ABG pCO2 52.8 H POC ABG pO2 ABG pO2 ABG HCO3 ABG O2 Saturation ABG Base Excess ABG Hemoglobin Oxyhemoglobin Sodium 136 L Potassium 6.5 H* Chloride 97.2 L Carbon Dioxide BUN 60 H Creatinine Glucose 113 H POC Glucose Uric Acid Calcium Phosphorus Magnesium 2.40 H AST 139 H ALT 154 H Total Creatine Kinase CK-MB (CK-2) Troponin T NT-Pro-B Natriuret Pep Total Protein Albumin 3.8 L Triglycerides HDL Cholesterol Urine WBC (Auto) Urine Creatinine Urine Total Protein Vancomycin Trough 05/01/19 05/01/19 05/01/19 Unknown Unknown Unknown WBC 16.1 H RBC Hgb Hct MCV MCH MCHC RDW 17.2 H Lymph % (Auto) [place] % (Auto) 9.6 H Eos % (Auto) Lymph # [place] # 1.5 H Eos # Seg Neutrophils % 73.0 H Seg Neuts % (Manual) Lymphocytes % (Manual) Monocytes % (Manual) Eosinophils % (Manual) Nucleated RBC % Seg Neutrophils # 11.7 H Lymphocytes # (Manual) Monocytes # (Manual) Eosinophils # (Manual) PT 15.4 H INR 1.23 H APTT 22.7 L POC ABG pH ABG pH POC ABG pCO2 POC ABG pO2 ABG pO2 ABG HCO3 ABG O2 Saturation ABG Base Excess ABG Hemoglobin Oxyhemoglobin Sodium Potassium Chloride Carbon Dioxide BUN Creatinine Glucose POC Glucose Uric Acid Calcium Phosphorus Magnesium AST ALT Total Creatine Kinase CK-MB (CK-2) Troponin T NT-Pro-B Natriuret Pep 6831 H Total Protein Albumin Triglycerides HDL Cholesterol Urine WBC (Auto) Urine Creatinine Urine Total Protein Vancomycin Trough 05/01/19 05/02/19 05/02/19 Unknown 00:06 00:06 WBC RBC Hgb Hct MCV MCH MCHC RDW Lymph % (Auto) [place] % (Auto) Eos % (Auto) Lymph # [place] # Eos # Seg Neutrophils % Seg Neuts % (Manual) Lymphocytes % (Manual) Monocytes % (Manual) Eosinophils % (Manual) Nucleated RBC % Seg Neutrophils # Lymphocytes # (Manual) Monocytes # (Manual) Eosinophils # (Manual) PT INR APTT POC ABG pH ABG pH POC ABG pCO2 POC ABG pO2 ABG pO2 ABG HCO3 ABG O2 Saturation ABG Base Excess ABG Hemoglobin Oxyhemoglobin Sodium Potassium Chloride Carbon Dioxide BUN Creatinine Glucose POC Glucose Uric Acid Calcium Phosphorus 4.90 H Magnesium AST ALT Total Creatine Kinase 226 H CK-MB (CK-2) 5.7 H Troponin T 0.044 H NT-Pro-B Natriuret Pep Total Protein Albumin Triglycerides 182 H HDL Cholesterol 18 L Urine WBC (Auto) Urine Creatinine Urine Total Protein Vancomycin Trough 05/02/19 05/02/19 05/02/19 02:08 04:40 04:41 WBC 17.6 H RBC Hgb Hct MCV MCH 27 L MCHC RDW 17.4 H Lymph % (Auto) 10.2 L [place] % (Auto) 11.0 H Eos % (Auto) Lymph # [place] # 1.9 H Eos # Seg Neutrophils % 78.0 H Seg Neuts % (Manual) Lymphocytes % (Manual) Monocytes % (Manual) Eosinophils % (Manual) Nucleated RBC % Seg Neutrophils # 13.8 H Lymphocytes # (Manual) Monocytes # (Manual) Eosinophils # (Manual) PT INR APTT POC ABG pH ABG pH POC ABG pCO2 46.8 H POC ABG pO2 63 L ABG pO2 ABG HCO3 ABG O2 Saturation ABG Base Excess ABG Hemoglobin Oxyhemoglobin Sodium Potassium Chloride 96.3 L Carbon Dioxide BUN 63 H Creatinine 1.7 H Glucose POC Glucose Uric Acid Calcium Phosphorus Magnesium AST ALT Total Creatine Kinase CK-MB (CK-2) Troponin T NT-Pro-B Natriuret Pep Total Protein Albumin Triglycerides HDL Cholesterol Urine WBC (Auto) Urine Creatinine Urine Total Protein Vancomycin Trough 05/02/19 05/02/19 05/02/19 04:41 04:41 16:05 WBC RBC Hgb Hct MCV MCH MCHC RDW Lymph % (Auto) [place] % (Auto) Eos % (Auto) Lymph # [place] # Eos # Seg Neutrophils % Seg Neuts % (Manual) Lymphocytes % (Manual) Monocytes % (Manual) Eosinophils % (Manual) Nucleated RBC % Seg Neutrophils # Lymphocytes # (Manual) Monocytes # (Manual) Eosinophils # (Manual) PT INR APTT POC ABG pH ABG pH POC ABG pCO2 POC ABG pO2 ABG pO2 66.6 L ABG HCO3 31.9 H ABG O2 Saturation 92.5 L ABG Base Excess 5.8 H ABG Hemoglobin 13.3 L Oxyhemoglobin 90.6 L Sodium Potassium Chloride 97.2 L Carbon Dioxide BUN 61 H Creatinine 1.8 H Glucose POC Glucose Uric Acid Calcium Phosphorus Magnesium AST ALT Total Creatine Kinase CK-MB (CK-2) 5.2 H Troponin T 0.067 H D NT-Pro-B Natriuret Pep Total Protein Albumin Triglycerides HDL Cholesterol Urine WBC (Auto) Urine Creatinine Urine Total Protein Vancomycin Trough 05/02/19 05/03/19 05/03/19 20:39 04:35 05:05 WBC 11.8 H RBC Hgb Hct MCV MCH 27 L MCHC 31 L RDW 17.2 H Lymph % (Auto) [place] % (Auto) Eos % (Auto) Lymph # [place] # Eos # Seg Neutrophils % Seg Neuts % (Manual) Lymphocytes % (Manual) Monocytes % (Manual) Eosinophils % (Manual) Nucleated RBC % Seg Neutrophils # Lymphocytes # (Manual) Monocytes # (Manual) Eosinophils # (Manual) PT INR APTT POC ABG pH ABG pH POC ABG pCO2 53.6 H 54.0 H POC ABG pO2 55 L 63 L ABG pO2 ABG HCO3 ABG O2 Saturation ABG Base Excess ABG Hemoglobin Oxyhemoglobin Sodium Potassium Chloride Carbon Dioxide BUN Creatinine Glucose POC Glucose Uric Acid Calcium Phosphorus Magnesium AST ALT Total Creatine Kinase CK-MB (CK-2) Troponin T NT-Pro-B Natriuret Pep Total Protein Albumin Triglycerides HDL Cholesterol Urine WBC (Auto) Urine Creatinine Urine Total Protein Vancomycin Trough 05/03/19 05/03/19 05/03/19 05:05 10:55 16:48 WBC RBC Hgb Hct MCV MCH MCHC RDW Lymph % (Auto) [place] % (Auto) Eos % (Auto) Lymph # [place] # Eos # Seg Neutrophils % Seg Neuts % (Manual) Lymphocytes % (Manual) Monocytes % (Manual) Eosinophils % (Manual) Nucleated RBC % Seg Neutrophils # Lymphocytes # (Manual) Monocytes # (Manual) Eosinophils # (Manual) PT INR APTT POC ABG pH 7.604 H ABG pH POC ABG pCO2 POC ABG pO2 58 L ABG pO2 ABG HCO3 ABG O2 Saturation ABG Base Excess ABG Hemoglobin Oxyhemoglobin Sodium Potassium Chloride Carbon Dioxide BUN 52 H Creatinine 1.9 H Glucose 103 H POC Glucose Uric Acid Calcium Phosphorus Magnesium AST ALT Total Creatine Kinase CK-MB (CK-2) Troponin T NT-Pro-B Natriuret Pep Total Protein Albumin Triglycerides HDL Cholesterol Urine WBC (Auto) 33.0 H Urine Creatinine Urine Total Protein Vancomycin Trough 05/04/19 05/04/19 05/04/19 04:49 06:50 06:50 WBC 16.0 H RBC Hgb Hct MCV MCH 27 L MCHC 31 L RDW 17.8 H Lymph % (Auto) [place] % (Auto) Eos % (Auto) Lymph # [place] # Eos # Seg Neutrophils % Seg Neuts % (Manual) Lymphocytes % (Manual) Monocytes % (Manual) Eosinophils % (Manual) Nucleated RBC % Seg Neutrophils # Lymphocytes # (Manual) Monocytes # (Manual) Eosinophils # (Manual) PT INR APTT POC ABG pH 7.273 L ABG pH POC ABG pCO2 POC ABG pO2 ABG pO2 ABG HCO3 ABG O2 Saturation ABG Base Excess ABG Hemoglobin Oxyhemoglobin Sodium 148 H Potassium 5.5 H Chloride Carbon Dioxide BUN 53 H Creatinine 3.3 H D Glucose 106 H POC Glucose Uric Acid Calcium 8.3 L Phosphorus Magnesium AST ALT Total Creatine Kinase CK-MB (CK-2) Troponin T NT-Pro-B Natriuret Pep Total Protein Albumin Triglycerides HDL Cholesterol Urine WBC (Auto) Urine Creatinine Urine Total Protein Vancomycin Trough 05/05/19 05/05/19 05/05/19 00:05 04:30 05:00 WBC RBC Hgb Hct MCV MCH MCHC RDW Lymph % (Auto) [place] % (Auto) Eos % (Auto) Lymph # [place] # Eos # Seg Neutrophils % Seg Neuts % (Manual) Lymphocytes % (Manual) Monocytes % (Manual) Eosinophils % (Manual) Nucleated RBC % Seg Neutrophils # Lymphocytes # (Manual) Monocytes # (Manual) Eosinophils # (Manual) PT INR APTT POC ABG pH 7.225 L ABG pH POC ABG pCO2 > 70 H POC ABG pO2 ABG pO2 ABG HCO3 ABG O2 Saturation ABG Base Excess ABG Hemoglobin Oxyhemoglobin Sodium 151 H Potassium 5.1 H Chloride Carbon Dioxide BUN 64 H Creatinine 3.5 H Glucose 117 H POC Glucose 141 H Uric Acid Calcium 7.5 L Phosphorus Magnesium AST 93 H ALT 65 H Total Creatine Kinase CK-MB (CK-2) Troponin T NT-Pro-B Natriuret Pep Total Protein Albumin 2.9 L Triglycerides HDL Cholesterol Urine WBC (Auto) Urine Creatinine Urine Total Protein Vancomycin Trough 05/05/19 05/05/19 05/05/19 05:00 12:02 17:46 WBC 12.0 H RBC Hgb 11.3 L Hct MCV MCH 27 L MCHC 30 L RDW 18.4 H Lymph % (Auto) 7.9 L [place] % (Auto) 10.2 H Eos % (Auto) Lymph # 1.0 L [place] # 1.2 H Eos # Seg Neutrophils % 80.8 H Seg Neuts % (Manual) Lymphocytes % (Manual) Monocytes % (Manual) Eosinophils % (Manual) Nucleated RBC % Seg Neutrophils # 9.7 H Lymphocytes # (Manual) Monocytes # (Manual) Eosinophils # (Manual) PT INR APTT POC ABG pH ABG pH POC ABG pCO2 POC ABG pO2 ABG pO2 ABG HCO3 ABG O2 Saturation ABG Base Excess ABG Hemoglobin Oxyhemoglobin Sodium Potassium Chloride Carbon Dioxide BUN Creatinine Glucose POC Glucose 125 H 112 H Uric Acid Calcium Phosphorus Magnesium AST ALT Total Creatine Kinase CK-MB (CK-2) Troponin T NT-Pro-B Natriuret Pep Total Protein Albumin Triglycerides HDL Cholesterol Urine WBC (Auto) Urine Creatinine Urine Total Protein Vancomycin Trough 05/05/19 05/06/19 05/06/19 23:42 03:58 04:45 WBC 11.4 H RBC Hgb 10.7 L Hct 34.2 L MCV MCH 27 L MCHC 31 L RDW 16.9 H Lymph % (Auto) [place] % (Auto) Eos % (Auto) Lymph # [place] # Eos # Seg Neutrophils % Seg Neuts % (Manual) Lymphocytes % (Manual) Monocytes % (Manual) Eosinophils % (Manual) Nucleated RBC % Seg Neutrophils # Lymphocytes # (Manual) Monocytes # (Manual) Eosinophils # (Manual) PT INR APTT POC ABG pH ABG pH POC ABG pCO2 62.4 H POC ABG pO2 111 H ABG pO2 ABG HCO3 ABG O2 Saturation ABG Base Excess ABG Hemoglobin Oxyhemoglobin Sodium Potassium Chloride Carbon Dioxide BUN Creatinine Glucose POC Glucose 128 H Uric Acid Calcium Phosphorus Magnesium AST ALT Total Creatine Kinase CK-MB (CK-2) Troponin T NT-Pro-B Natriuret Pep Total Protein Albumin Triglycerides HDL Cholesterol Urine WBC (Auto) Urine Creatinine Urine Total Protein Vancomycin Trough 05/06/19 05/06/19 05/06/19 04:45 05:33 12:30 WBC RBC Hgb Hct MCV MCH MCHC RDW Lymph % (Auto) [place] % (Auto) Eos % (Auto) Lymph # [place] # Eos # Seg Neutrophils % Seg Neuts % (Manual) Lymphocytes % (Manual) Monocytes % (Manual) Eosinophils % (Manual) Nucleated RBC % Seg Neutrophils # Lymphocytes # (Manual) Monocytes # (Manual) Eosinophils # (Manual) PT INR APTT POC ABG pH ABG pH POC ABG pCO2 POC ABG pO2 ABG pO2 ABG HCO3 ABG O2 Saturation ABG Base Excess ABG Hemoglobin Oxyhemoglobin Sodium 149 H Potassium Chloride Carbon Dioxide 31 H BUN 67 H Creatinine 3.2 H Glucose 125 H POC Glucose 117 H 116 H Uric Acid Calcium 7.5 L Phosphorus Magnesium AST ALT Total Creatine Kinase CK-MB (CK-2) Troponin T NT-Pro-B Natriuret Pep Total Protein Albumin Triglycerides HDL Cholesterol Urine WBC (Auto) Urine Creatinine Urine Total Protein Vancomycin Trough 05/06/19 05/06/19 05/07/19 18:34 23:16 05:22 WBC RBC Hgb Hct MCV MCH MCHC RDW Lymph % (Auto) [place] % (Auto) Eos % (Auto) Lymph # [place] # Eos # Seg Neutrophils % Seg Neuts % (Manual) Lymphocytes % (Manual) Monocytes % (Manual) Eosinophils % (Manual) Nucleated RBC % Seg Neutrophils # Lymphocytes # (Manual) Monocytes # (Manual) Eosinophils # (Manual) PT INR APTT POC ABG pH ABG pH POC ABG pCO2 POC ABG pO2 ABG pO2 ABG HCO3 ABG O2 Saturation ABG Base Excess ABG Hemoglobin Oxyhemoglobin Sodium Potassium Chloride Carbon Dioxide BUN Creatinine Glucose POC Glucose 128 H 143 H 166 H Uric Acid Calcium Phosphorus Magnesium AST ALT Total Creatine Kinase CK-MB (CK-2) Troponin T NT-Pro-B Natriuret Pep Total Protein Albumin Triglycerides HDL Cholesterol Urine WBC (Auto) Urine Creatinine Urine Total Protein Vancomycin Trough 05/07/19 05/07/19 05/07/19 06:33 07:03 09:35 WBC RBC Hgb Hct MCV MCH MCHC RDW Lymph % (Auto) [place] % (Auto) Eos % (Auto) Lymph # [place] # Eos # Seg Neutrophils % Seg Neuts % (Manual) Lymphocytes % (Manual) Monocytes % (Manual) Eosinophils % (Manual) Nucleated RBC % Seg Neutrophils # Lymphocytes # (Manual) Monocytes # (Manual) Eosinophils # (Manual) PT INR APTT POC ABG pH 7.263 L 7.288 L ABG pH POC ABG pCO2 POC ABG pO2 51 L 56 L ABG pO2 ABG HCO3 ABG O2 Saturation ABG Base Excess ABG Hemoglobin Oxyhemoglobin Sodium Potassium Chloride Carbon Dioxide BUN 76 H Creatinine 3.2 H Glucose 147 H POC Glucose Uric Acid Calcium 7.9 L Phosphorus Magnesium AST ALT Total Creatine Kinase CK-MB (CK-2) Troponin T NT-Pro-B Natriuret Pep Total Protein Albumin Triglycerides HDL Cholesterol Urine WBC (Auto) Urine Creatinine Urine Total Protein Vancomycin Trough 05/07/19 05/07/19 05/07/19 09:35 12:17 13:45 WBC 13.4 H RBC Hgb 11.6 L Hct MCV MCH 27 L MCHC 31 L RDW 17.5 H Lymph % (Auto) [place] % (Auto) Eos % (Auto) Lymph # [place] # Eos # Seg Neutrophils % Seg Neuts % (Manual) Lymphocytes % (Manual) Monocytes % (Manual) Eosinophils % (Manual) Nucleated RBC % Seg Neutrophils # Lymphocytes # (Manual) Monocytes # (Manual) Eosinophils # (Manual) PT INR APTT POC ABG pH ABG pH POC ABG pCO2 POC ABG pO2 ABG pO2 ABG HCO3 ABG O2 Saturation ABG Base Excess ABG Hemoglobin Oxyhemoglobin Sodium Potassium Chloride Carbon Dioxide BUN Creatinine Glucose POC Glucose 130 H Uric Acid 18.0 H Calcium Phosphorus Magnesium AST ALT Total Creatine Kinase CK-MB (CK-2) Troponin T NT-Pro-B Natriuret Pep Total Protein Albumin Triglycerides HDL Cholesterol Urine WBC (Auto) Urine Creatinine Urine Total Protein Vancomycin Trough 05/07/19 05/07/19 05/08/19 17:39 22:40 05:06 WBC RBC Hgb Hct MCV MCH MCHC RDW Lymph % (Auto) [place] % (Auto) Eos % (Auto) Lymph # [place] # Eos # Seg Neutrophils % Seg Neuts % (Manual) Lymphocytes % (Manual) Monocytes % (Manual) Eosinophils % (Manual) Nucleated RBC % Seg Neutrophils # Lymphocytes # (Manual) Monocytes # (Manual) Eosinophils # (Manual) PT INR APTT POC ABG pH ABG pH POC ABG pCO2 POC ABG pO2 ABG pO2 ABG HCO3 ABG O2 Saturation ABG Base Excess ABG Hemoglobin Oxyhemoglobin Sodium Potassium Chloride Carbon Dioxide BUN Creatinine Glucose POC Glucose 116 H 148 H Uric Acid Calcium Phosphorus Magnesium AST ALT Total Creatine Kinase CK-MB (CK-2) Troponin T NT-Pro-B Natriuret Pep Total Protein Albumin Triglycerides HDL Cholesterol Urine WBC (Auto) Urine Creatinine 292.8 H Urine Total Protein 269 H Vancomycin Trough 05/08/19 05/08/19 05/08/19 05:32 11:28 13:48 WBC RBC Hgb Hct MCV MCH MCHC RDW Lymph % (Auto) [place] % (Auto) Eos % (Auto) Lymph # [place] # Eos # Seg Neutrophils % Seg Neuts % (Manual) Lymphocytes % (Manual) Monocytes % (Manual) Eosinophils % (Manual) Nucleated RBC % Seg Neutrophils # Lymphocytes # (Manual) Monocytes # (Manual) Eosinophils # (Manual) PT INR APTT POC ABG pH ABG pH POC ABG pCO2 45.4 H POC ABG pO2 64 L ABG pO2 ABG HCO3 ABG O2 Saturation ABG Base Excess ABG Hemoglobin Oxyhemoglobin Sodium Potassium Chloride Carbon Dioxide BUN 73 H Creatinine 2.7 H Glucose 127 H POC Glucose 107 H Uric Acid Calcium 7.6 L Phosphorus Magnesium AST ALT Total Creatine Kinase CK-MB (CK-2) Troponin T NT-Pro-B Natriuret Pep Total Protein Albumin Triglycerides HDL Cholesterol Urine WBC (Auto) Urine Creatinine Urine Total Protein Vancomycin Trough 05/08/19 05/09/19 05/09/19 17:48 04:50 04:53 WBC RBC 3.07 L Hgb 8.5 L D Hct 29.3 L D MCV 96 H MCH MCHC 29 L RDW 18.1 H Lymph % (Auto) [place] % (Auto) Eos % (Auto) Lymph # [place] # Eos # Seg Neutrophils % Seg Neuts % (Manual) Lymphocytes % (Manual) Monocytes % (Manual) Eosinophils % (Manual) Nucleated RBC % Seg Neutrophils # Lymphocytes # (Manual) Monocytes # (Manual) Eosinophils # (Manual) PT INR APTT POC ABG pH 7.316 L ABG pH POC ABG pCO2 66.0 H POC ABG pO2 69 L ABG pO2 ABG HCO3 ABG O2 Saturation ABG Base Excess ABG Hemoglobin Oxyhemoglobin Sodium Potassium Chloride Carbon Dioxide BUN Creatinine Glucose POC Glucose 155 H Uric Acid Calcium Phosphorus Magnesium AST ALT Total Creatine Kinase CK-MB (CK-2) Troponin T NT-Pro-B Natriuret Pep Total Protein Albumin Triglycerides HDL Cholesterol Urine WBC (Auto) Urine Creatinine Urine Total Protein Vancomycin Trough 05/09/19 05/09/19 05/09/19 05:46 07:24 12:10 WBC RBC Hgb Hct MCV MCH MCHC RDW Lymph % (Auto) [place] % (Auto) Eos % (Auto) Lymph # [place] # Eos # Seg Neutrophils % Seg Neuts % (Manual) Lymphocytes % (Manual) Monocytes % (Manual) Eosinophils % (Manual) Nucleated RBC % Seg Neutrophils # Lymphocytes # (Manual) Monocytes # (Manual) Eosinophils # (Manual) PT INR APTT POC ABG pH ABG pH POC ABG pCO2 POC ABG pO2 ABG pO2 ABG HCO3 ABG O2 Saturation ABG Base Excess ABG Hemoglobin Oxyhemoglobin Sodium Potassium Chloride Carbon Dioxide BUN 73 H Creatinine 2.4 H Glucose 153 H POC Glucose 123 H 148 H Uric Acid Calcium 8.2 L Phosphorus Magnesium AST 45 H ALT Total Creatine Kinase CK-MB (CK-2) Troponin T NT-Pro-B Natriuret Pep Total Protein 6.0 L Albumin 1.9 L Triglycerides HDL Cholesterol Urine WBC (Auto) Urine Creatinine Urine Total Protein Vancomycin Trough 05/09/19 05/09/19 05/10/19 18:23 23:26 04:52 WBC RBC Hgb Hct MCV MCH MCHC RDW Lymph % (Auto) [place] % (Auto) Eos % (Auto) Lymph # [place] # Eos # Seg Neutrophils % Seg Neuts % (Manual) Lymphocytes % (Manual) Monocytes % (Manual) Eosinophils % (Manual) Nucleated RBC % Seg Neutrophils # Lymphocytes # (Manual) Monocytes # (Manual) Eosinophils # (Manual) PT INR APTT POC ABG pH 7.305 L ABG pH POC ABG pCO2 62.6 H POC ABG pO2 ABG pO2 ABG HCO3 ABG O2 Saturation ABG Base Excess ABG Hemoglobin Oxyhemoglobin Sodium Potassium Chloride Carbon Dioxide BUN Creatinine Glucose POC Glucose 147 H 121 H Uric Acid Calcium Phosphorus Magnesium AST ALT Total Creatine Kinase CK-MB (CK-2) Troponin T NT-Pro-B Natriuret Pep Total Protein Albumin Triglycerides HDL Cholesterol Urine WBC (Auto) Urine Creatinine Urine Total Protein Vancomycin Trough 05/10/19 05/10/19 05/10/19 05:00 05:00 05:50 WBC RBC Hgb 10.3 L Hct 33.7 L MCV MCH 27 L MCHC 31 L RDW 17.0 H Lymph % (Auto) [place] % (Auto) Eos % (Auto) Lymph # [place] # Eos # Seg Neutrophils % Seg Neuts % (Manual) Lymphocytes % (Manual) Monocytes % (Manual) Eosinophils % (Manual) Nucleated RBC % Seg Neutrophils # Lymphocytes # (Manual) Monocytes # (Manual) Eosinophils # (Manual) PT INR APTT POC ABG pH ABG pH POC ABG pCO2 POC ABG pO2 ABG pO2 ABG HCO3 ABG O2 Saturation ABG Base Excess ABG Hemoglobin Oxyhemoglobin Sodium 147 H Potassium Chloride Carbon Dioxide BUN 70 H Creatinine 2.6 H Glucose 155 H POC Glucose 158 H Uric Acid Calcium 8.2 L Phosphorus Magnesium AST ALT Total Creatine Kinase CK-MB (CK-2) Troponin T NT-Pro-B Natriuret Pep Total Protein 6.1 L Albumin 2.5 L Triglycerides HDL Cholesterol Urine WBC (Auto) Urine Creatinine Urine Total Protein Vancomycin Trough 05/10/19 05/11/19 05/11/19 13:14 07:26 11:40 WBC RBC Hgb Hct MCV MCH MCHC RDW Lymph % (Auto) [place] % (Auto) Eos % (Auto) Lymph # [place] # Eos # Seg Neutrophils % Seg Neuts % (Manual) Lymphocytes % (Manual) Monocytes % (Manual) Eosinophils % (Manual) Nucleated RBC % Seg Neutrophils # Lymphocytes # (Manual) Monocytes # (Manual) Eosinophils # (Manual) PT INR APTT POC ABG pH ABG pH POC ABG pCO2 48.0 H POC ABG pO2 58 L ABG pO2 ABG HCO3 ABG O2 Saturation ABG Base Excess ABG Hemoglobin Oxyhemoglobin Sodium 147 H Potassium Chloride 107.2 H Carbon Dioxide BUN 67 H Creatinine 2.6 H Glucose 121 H POC Glucose 159 H Uric Acid Calcium Phosphorus Magnesium AST ALT Total Creatine Kinase CK-MB (CK-2) Troponin T NT-Pro-B Natriuret Pep Total Protein Albumin Triglycerides HDL Cholesterol Urine WBC (Auto) Urine Creatinine Urine Total Protein Vancomycin Trough 05/11/19 05/11/19 05/12/19 18:13 23:46 04:40 WBC RBC Hgb Hct MCV MCH MCHC RDW Lymph % (Auto) [place] % (Auto) Eos % (Auto) Lymph # [place] # Eos # Seg Neutrophils % Seg Neuts % (Manual) Lymphocytes % (Manual) Monocytes % (Manual) Eosinophils % (Manual) Nucleated RBC % Seg Neutrophils # Lymphocytes # (Manual) Monocytes # (Manual) Eosinophils # (Manual) PT INR APTT POC ABG pH ABG pH 7.264 L POC ABG pCO2 POC ABG pO2 ABG pO2 66.8 L ABG HCO3 31.0 H ABG O2 Saturation 92.0 L ABG Base Excess ABG Hemoglobin 10.3 L Oxyhemoglobin 90.1 L Sodium Potassium Chloride Carbon Dioxide BUN Creatinine Glucose POC Glucose 120 H 121 H Uric Acid Calcium Phosphorus Magnesium AST ALT Total Creatine Kinase CK-MB (CK-2) Troponin T NT-Pro-B Natriuret Pep Total Protein Albumin Triglycerides HDL Cholesterol Urine WBC (Auto) Urine Creatinine Urine Total Protein Vancomycin Trough 05/12/19 05/12/19 05/12/19 04:45 04:45 11:14 WBC RBC Hgb 10.2 L Hct 32.4 L MCV MCH MCHC 31 L RDW 17.2 H Lymph % (Auto) [place] % (Auto) Eos % (Auto) Lymph # [place] # Eos # Seg Neutrophils % Seg Neuts % (Manual) Lymphocytes % (Manual) Monocytes % (Manual) Eosinophils % (Manual) Nucleated RBC % Seg Neutrophils # Lymphocytes # (Manual) Monocytes # (Manual) Eosinophils # (Manual) PT INR APTT POC ABG pH 7.284 L ABG pH POC ABG pCO2 67.8 H POC ABG pO2 ABG pO2 ABG HCO3 ABG O2 Saturation ABG Base Excess ABG Hemoglobin Oxyhemoglobin Sodium Potassium Chloride Carbon Dioxide BUN 63 H Creatinine 2.4 H Glucose 110 H POC Glucose Uric Acid Calcium Phosphorus Magnesium AST ALT Total Creatine Kinase CK-MB (CK-2) Troponin T NT-Pro-B Natriuret Pep Total Protein Albumin Triglycerides HDL Cholesterol Urine WBC (Auto) Urine Creatinine Urine Total Protein Vancomycin Trough 05/12/19 05/12/19 05/13/19 11:44 23:11 04:30 WBC RBC Hgb Hct MCV MCH MCHC RDW Lymph % (Auto) [place] % (Auto) Eos % (Auto) Lymph # [place] # Eos # Seg Neutrophils % Seg Neuts % (Manual) Lymphocytes % (Manual) Monocytes % (Manual) Eosinophils % (Manual) Nucleated RBC % Seg Neutrophils # Lymphocytes # (Manual) Monocytes # (Manual) Eosinophils # (Manual) PT INR APTT POC ABG pH ABG pH 7.288 L POC ABG pCO2 POC ABG pO2 ABG pO2 109.7 H ABG HCO3 30.9 H ABG O2 Saturation ABG Base Excess 3.2 H ABG Hemoglobin 9.6 L Oxyhemoglobin Sodium Potassium Chloride Carbon Dioxide BUN Creatinine Glucose POC Glucose 126 H 147 H Uric Acid Calcium Phosphorus Magnesium AST ALT Total Creatine Kinase CK-MB (CK-2) Troponin T NT-Pro-B Natriuret Pep Total Protein Albumin Triglycerides HDL Cholesterol Urine WBC (Auto) Urine Creatinine Urine Total Protein Vancomycin Trough 05/13/19 05/13/19 05/14/19 06:27 11:58 04:00 WBC RBC 3.16 L Hgb 9.3 L Hct 27.9 L MCV MCH MCHC RDW 17.1 H Lymph % (Auto) [place] % (Auto) Eos % (Auto) Lymph # [place] # Eos # Seg Neutrophils % Seg Neuts % (Manual) Lymphocytes % (Manual) Monocytes % (Manual) Eosinophils % (Manual) Nucleated RBC % Seg Neutrophils # Lymphocytes # (Manual) Monocytes # (Manual) Eosinophils # (Manual) PT INR APTT POC ABG pH ABG pH POC ABG pCO2 POC ABG pO2 ABG pO2 ABG HCO3 ABG O2 Saturation ABG Base Excess ABG Hemoglobin Oxyhemoglobin Sodium Potassium Chloride Carbon Dioxide BUN Creatinine Glucose POC Glucose 113 H 130 H Uric Acid Calcium Phosphorus Magnesium AST ALT Total Creatine Kinase CK-MB (CK-2) Troponin T NT-Pro-B Natriuret Pep Total Protein Albumin Triglycerides HDL Cholesterol Urine WBC (Auto) Urine Creatinine Urine Total Protein Vancomycin Trough 05/14/19 05/14/19 05/14/19 04:00 04:34 05:32 WBC RBC Hgb Hct MCV MCH MCHC RDW Lymph % (Auto) [place] % (Auto) Eos % (Auto) Lymph # [place] # Eos # Seg Neutrophils % Seg Neuts % (Manual) Lymphocytes % (Manual) Monocytes % (Manual) Eosinophils % (Manual) Nucleated RBC % Seg Neutrophils # Lymphocytes # (Manual) Monocytes # (Manual) Eosinophils # (Manual) PT INR APTT POC ABG pH 7.328 L ABG pH POC ABG pCO2 61.7 H POC ABG pO2 ABG pO2 ABG HCO3 ABG O2 Saturation ABG Base Excess ABG Hemoglobin Oxyhemoglobin Sodium 135 L D Potassium Chloride Carbon Dioxide BUN 57 H Creatinine 2.2 H Glucose 115 H POC Glucose 115 H Uric Acid Calcium 8.1 L Phosphorus Magnesium AST ALT Total Creatine Kinase CK-MB (CK-2) Troponin T NT-Pro-B Natriuret Pep Total Protein Albumin Triglycerides HDL Cholesterol Urine WBC (Auto) Urine Creatinine Urine Total Protein Vancomycin Trough 05/14/19 05/15/19 05/15/19 12:11 05:10 05:24 WBC RBC Hgb Hct MCV MCH MCHC RDW Lymph % (Auto) [place] % (Auto) Eos % (Auto) Lymph # [place] # Eos # Seg Neutrophils % Seg Neuts % (Manual) Lymphocytes % (Manual) Monocytes % (Manual) Eosinophils % (Manual) Nucleated RBC % Seg Neutrophils # Lymphocytes # (Manual) Monocytes # (Manual) Eosinophils # (Manual) PT INR APTT POC ABG pH ABG pH 7.342 L POC ABG pCO2 POC ABG pO2 ABG pO2 79.1 L ABG HCO3 28.2 H ABG O2 Saturation ABG Base Excess ABG Hemoglobin 7.0 L Oxyhemoglobin 94.4 L Sodium Potassium Chloride Carbon Dioxide BUN Creatinine Glucose POC Glucose 110 H 116 H Uric Acid Calcium Phosphorus Magnesium AST ALT Total Creatine Kinase CK-MB (CK-2) Troponin T NT-Pro-B Natriuret Pep Total Protein Albumin Triglycerides HDL Cholesterol Urine WBC (Auto) Urine Creatinine Urine Total Protein Vancomycin Trough 05/15/19 05/15/19 05/16/19 09:00 18:12 04:50 WBC RBC Hgb Hct MCV MCH MCHC RDW Lymph % (Auto) [place] % (Auto) Eos % (Auto) Lymph # [place] # Eos # Seg Neutrophils % Seg Neuts % (Manual) Lymphocytes % (Manual) Monocytes % (Manual) Eosinophils % (Manual) Nucleated RBC % Seg Neutrophils # Lymphocytes # (Manual) Monocytes # (Manual) Eosinophils # (Manual) PT INR APTT POC ABG pH ABG pH 7.250 L POC ABG pCO2 POC ABG pO2 ABG pO2 76.4 L ABG HCO3 ABG O2 Saturation 94.6 L ABG Base Excess -3.1 L ABG Hemoglobin 9.7 L Oxyhemoglobin 92.4 L Sodium Potassium Chloride Carbon Dioxide BUN Creatinine Glucose POC Glucose 110 H Uric Acid Calcium Phosphorus Magnesium AST ALT Total Creatine Kinase CK-MB (CK-2) Troponin T NT-Pro-B Natriuret Pep Total Protein Albumin Triglycerides HDL Cholesterol Urine WBC (Auto) Urine Creatinine Urine Total Protein Vancomycin Trough 20.5 H 05/16/19 05/16/19 05/17/19 05:50 05:50 04:20 WBC RBC 3.36 L 3.44 L Hgb 9.4 L 9.3 L Hct 29.1 L 29.7 L MCV MCH 27 L MCHC 31 L RDW 17.6 H 17.6 H Lymph % (Auto) [place] % (Auto) Eos % (Auto) Lymph # [place] # Eos # Seg Neutrophils % Seg Neuts % (Manual) 77.0 H Lymphocytes % (Manual) 5.0 L Monocytes % (Manual) Eosinophils % (Manual) 10.0 H Nucleated RBC % Seg Neutrophils # Lymphocytes # (Manual) 0.5 L Monocytes # (Manual) Eosinophils # (Manual) 0.9 H PT INR APTT POC ABG pH ABG pH POC ABG pCO2 POC ABG pO2 ABG pO2 ABG HCO3 ABG O2 Saturation ABG Base Excess ABG Hemoglobin Oxyhemoglobin Sodium Potassium Chloride Carbon Dioxide BUN 83 H Creatinine 4.4 H D Glucose 118 H POC Glucose Uric Acid Calcium Phosphorus Magnesium AST ALT Total Creatine Kinase CK-MB (CK-2) Troponin T NT-Pro-B Natriuret Pep Total Protein Albumin Triglycerides HDL Cholesterol Urine WBC (Auto) Urine Creatinine Urine Total Protein Vancomycin Trough 05/17/19 05/17/19 05/18/19 04:30 Unknown 01:50 WBC RBC 3.49 L Hgb 9.4 L Hct 30.0 L MCV MCH 27 L MCHC 31 L RDW 17.8 H Lymph % (Auto) 7.9 L [place] % (Auto) 15.4 H Eos % (Auto) 6.3 H Lymph # 0.7 L [place] # 1.4 H Eos # 0.6 H Seg Neutrophils % 70.2 H Seg Neuts % (Manual) Lymphocytes % (Manual) Monocytes % (Manual) Eosinophils % (Manual) Nucleated RBC % Seg Neutrophils # Lymphocytes # (Manual) Monocytes # (Manual) Eosinophils # (Manual) PT INR APTT POC ABG pH ABG pH 7.272 L POC ABG pCO2 POC ABG pO2 ABG pO2 75.7 L ABG HCO3 ABG O2 Saturation 93.8 L ABG Base Excess -3.0 L ABG Hemoglobin 7.8 L Oxyhemoglobin 91.6 L Sodium Potassium 5.2 H Chloride Carbon Dioxide BUN 96 H Creatinine 5.7 H Glucose 112 H POC Glucose Uric Acid Calcium Phosphorus Magnesium AST ALT Total Creatine Kinase CK-MB (CK-2) Troponin T NT-Pro-B Natriuret Pep Total Protein Albumin Triglycerides 173 H HDL Cholesterol Urine WBC (Auto) Urine Creatinine Urine Total Protein Vancomycin Trough 05/18/19 05/18/19 05/18/19 01:50 04:41 05:24 WBC RBC Hgb Hct MCV MCH MCHC RDW Lymph % (Auto) [place] % (Auto) Eos % (Auto) Lymph # [place] # Eos # Seg Neutrophils % Seg Neuts % (Manual) Lymphocytes % (Manual) Monocytes % (Manual) Eosinophils % (Manual) Nucleated RBC % Seg Neutrophils # Lymphocytes # (Manual) Monocytes # (Manual) Eosinophils # (Manual) PT INR APTT POC ABG pH 7.260 L ABG pH POC ABG pCO2 54.9 H POC ABG pO2 ABG pO2 ABG HCO3 ABG O2 Saturation ABG Base Excess ABG Hemoglobin Oxyhemoglobin Sodium Potassium 5.6 H Chloride Carbon Dioxide BUN 104 H Creatinine 6.6 H Glucose 107 H POC Glucose 106 H Uric Acid Calcium Phosphorus Magnesium AST ALT Total Creatine Kinase CK-MB (CK-2) Troponin T NT-Pro-B Natriuret Pep Total Protein Albumin Triglycerides HDL Cholesterol Urine WBC (Auto) Urine Creatinine Urine Total Protein Vancomycin Trough 05/18/19 05/18/19 05/19/19 11:34 23:26 04:06 WBC RBC 3.22 L Hgb 8.8 L Hct 27.3 L MCV MCH 27 L MCHC RDW 17.5 H Lymph % (Auto) [place] % (Auto) Eos % (Auto) Lymph # [place] # Eos # Seg Neutrophils % Seg Neuts % (Manual) 74.0 H Lymphocytes % (Manual) 4.0 L Monocytes % (Manual) 11.0 H Eosinophils % (Manual) 7.0 H Nucleated RBC % 1.0 H Seg Neutrophils # Lymphocytes # (Manual) 0.3 L Monocytes # (Manual) 0.9 H Eosinophils # (Manual) 0.6 H PT INR APTT POC ABG pH ABG pH POC ABG pCO2 POC ABG pO2 ABG pO2 ABG HCO3 ABG O2 Saturation ABG Base Excess ABG Hemoglobin Oxyhemoglobin Sodium Potassium Chloride Carbon Dioxide BUN Creatinine Glucose POC Glucose 152 H 112 H Uric Acid Calcium Phosphorus Magnesium AST ALT Total Creatine Kinase CK-MB (CK-2) Troponin T NT-Pro-B Natriuret Pep Total Protein Albumin Triglycerides HDL Cholesterol Urine WBC (Auto) Urine Creatinine Urine Total Protein Vancomycin Trough 05/19/19 05/19/19 05/20/19 04:06 06:00 04:00 WBC RBC 3.40 L Hgb 9.2 L Hct 28.6 L MCV MCH 27 L MCHC RDW 17.6 H Lymph % (Auto) [place] % (Auto) Eos % (Auto) Lymph # [place] # Eos # Seg Neutrophils % Seg Neuts % (Manual) Lymphocytes % (Manual) 11.0 L Monocytes % (Manual) Eosinophils % (Manual) 14.0 H Nucleated RBC % Seg Neutrophils # Lymphocytes # (Manual) 1.1 L Monocytes # (Manual) Eosinophils # (Manual) 1.4 H PT INR APTT POC ABG pH ABG pH 7.315 L POC ABG pCO2 POC ABG pO2 ABG pO2 ABG HCO3 ABG O2 Saturation ABG Base Excess ABG Hemoglobin 6.7 L Oxyhemoglobin 94.1 L Sodium Potassium 5.2 H Chloride Carbon Dioxide 21 L BUN 110 H Creatinine 7.2 H Glucose POC Glucose Uric Acid Calcium 8.3 L Phosphorus Magnesium AST ALT Total Creatine Kinase CK-MB (CK-2) Troponin T NT-Pro-B Natriuret Pep Total Protein Albumin Triglycerides HDL Cholesterol Urine WBC (Auto) Urine Creatinine Urine Total Protein Vancomycin Trough 05/20/19 05/20/19 05/20/19 04:00 05:48 12:00 WBC RBC Hgb Hct MCV MCH MCHC RDW Lymph % (Auto) [place] % (Auto) Eos % (Auto) Lymph # [place] # Eos # Seg Neutrophils % Seg Neuts % (Manual) Lymphocytes % (Manual) Monocytes % (Manual) Eosinophils % (Manual) Nucleated RBC % Seg Neutrophils # Lymphocytes # (Manual) Monocytes # (Manual) Eosinophils # (Manual) PT INR APTT POC ABG pH ABG pH 7.281 L POC ABG pCO2 POC ABG pO2 ABG pO2 78.7 L ABG HCO3 ABG O2 Saturation 94.5 L ABG Base Excess -3.0 L ABG Hemoglobin 9.9 L Oxyhemoglobin 92.5 L Sodium 136 L Potassium 5.7 H Chloride 96.3 L Carbon Dioxide BUN 125 H Creatinine 8.3 H Glucose 106 H POC Glucose Uric Acid Calcium Phosphorus Magnesium AST ALT Total Creatine Kinase CK-MB (CK-2) Troponin T NT-Pro-B Natriuret Pep Total Protein Albumin Triglycerides HDL Cholesterol Urine WBC (Auto) 26.0 H Urine Creatinine Urine Total Protein Vancomycin Trough Chest x-ray: report reviewed, image reviewed (worsening infiltrates on 05/19/19 CXR)
[2019-05-21] MEDS: fentaNYL DRIP Premix 2,000 MCG/100 ML BAG IV SCH ×6 (01:01→21:24)
[2019-05-21] MEDS: ACETAMINOPHEN 325 MG TAB PO PRN ×2 (05:27→16:48)
[2019-05-21 05:58] LABS: Hematocrit 28.5 % (35.5-45.6); Hemoglobin 9.1 gm/dl (11.8-15.2); Mean Corpuscular HGB Conc 32 % (32-34); Mean Corpuscular Volume 84 fl (84-94); Platelet Count 345 K/mm3 (140-440); Red Blood Count 3.38 M/mm3 (3.65-5.03); Red Cell Distribution Width 17.4 % (13.2-15.2)
[2019-05-21] MEDS: metroNIDAZOLE/NS 500 MG/100 ML 500 MG/100 ML BAG IV SCH ×3 (06:19→21:35)
[2019-05-21 06:22] LABS: Calcium 8.5 mg/dL (8.4-10.2)
--- NOTE | 2019-05-21 08:36 | Progress Note ---
Assessment and Plan Assessment and plan: Patient is a 34-year-old man who is morbidly obese (575 lbs) with unknown medical history who presented to [facility] ED on 05/01/2019 (I started seeing patient for the first time on 05/20/19, Day 19) with SOB. He was placed on BIPAP and failed. He had cardiac arrest in ED and was Intubated in ED. On 05/12/19- ETT exchanged due to hypoxia. In the chart there is a report that he has undiagnosis LANDON and using someone else CPAP. 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 Isotope Technician managing. Obesity Hypoventilation syndrome Patient previously on LANDON Management at home but per discussion with family, was non complaint Sepsis- not present on admission -On abx, ID following. LP when able ?Meningitis considering recurrent fever. Doubt, but ID following Acylovir stopped ?seizure activity -Meninigitis prophy -Neurology consult -EEG-negative Acute CHF, new onset, diastolic Diurese with IV lasix held, on HD now monitor I/O, daily weights Cardiology following. Added beta-jenny, no TIM inhibitor secondary to renal insufficiency Hypertension malignant Start antihypertensive, monitor blood pressure IV hydralazine as needed for further control Acute kidney injury due to ATN ?Vancomycin toxicity, Held. Monitor Nephrology following and input noted. Han for strict I/Os HD per nephrology Hyperkalemia-Kaylexate Passive congestive hepatic syndrome -LFT elevated but trending down -Noted Gallbladder sludge DVT prophylaxis with Lovenox Morbid obesity Full code status. Prognosis guarded +han removed +ETT +NGT +Fentanyl; and Diprivan RUE PIcc off levaphed since Thursday morning receiving HD drool, with increased secretion, scopolamine patch helped ?trach consideration, intubated since admission 05/01/19, ?PEG consideration CCT 31 minutes History Interval history: Patient was seen and examined. Follow-up on current diagnosis of Respiratory failure. Overnight uneventful. Imaging, nursing note, chart, labs and old chart reviewed. Hospitalist Physical - Physical exam Narrative exam: Gen: critically ill, bmi 70.1 sedated HEENT: NCAT, OP ETT in place Neck: supple, no adenopathy, no thyromegaly, no JVD CVS/Heart: tachycardiac, normal S1S2, pulses present bilaterally Chest/Lungs: tachypneic, Symmetrical chest expansion, good air entry bilaterally GI/Abdomen: soft, NTND, good bowel sounds, no guarding or rebound Extermity/Skin: good skin turgor MSK: sedated Neuro: sedated Psych: sedated - Constitutional Vitals: Temp Pulse Resp BP Pulse Ox 99.8 F H 100 H 22 112/39 95 05/21/19 08:00 05/21/19 08:23 05/21/19 06:15 05/21/19 08:23 05/21/19 08:23 General appearance: Present: no acute distress Results - Labs CBC & Chem 7: 05/21/19 Unknown 05/21/19 05:20 Labs: Laboratory Last Values WBC 9.3 K/mm3 (4.5-11.0) 05/21/19 Unknown RBC 3.38 M/mm3 (3.65-5.03) L 05/21/19 Unknown Hgb 9.1 gm/dl (11.8-15.2) L 05/21/19 Unknown Hct 28.5 % (35.5-45.6) L 05/21/19 Unknown MCV 84 fl (84-94) 05/21/19 Unknown MCH 27 pg (28-32) L 05/21/19 Unknown MCHC 32 % (32-34) 05/21/19 Unknown RDW 17.4 % (13.2-15.2) H 05/21/19 Unknown Plt Count 345 K/mm3 (140-440) 05/21/19 Unknown Lymph % (Auto) 7.9 % (13.4-35.0) L 05/18/19 01:50 [place] % (Auto) Valet Parking Attendant 05/21/19 Unknown Eos % (Auto) 6.3 % (0.0-4.3) H 05/18/19 01:50 Baso % (Auto) 0.2 % (0.0-1.8) 05/18/19 01:50 Lymph # 0.7 K/mm3 (1.2-5.4) L 05/18/19 01:50 [place] # 1.4 K/mm3 (0.0-0.8) H 05/18/19 01:50 Eos # 0.6 K/mm3 (0.0-0.4) H 05/18/19 01:50 Baso # 0.0 K/mm3 (0.0-0.1) 05/18/19 01:50 Add Manual Diff Complete 05/20/19 04:00 Total Counted 100 05/20/19 04:00 Seg Neutrophils % 70.2 % (40.0-70.0) H 05/18/19 01:50 Seg Neuts % (Manual) 60.0 % (40.0-70.0) 05/20/19 04:00 Band Neutrophils % 5.0 % 05/20/19 04:00 Lymphocytes % (Manual) 11.0 % (13.4-35.0) L 05/20/19 04:00 Reactive Lymphs % (Man) 0 % 05/20/19 04:00 Monocytes % (Manual) 7.0 % (0.0-7.3) 05/20/19 04:00 Eosinophils % (Manual) 14.0 % (0.0-4.3) H 05/20/19 04:00 Basophils % (Manual) 1.0 % (0.0-1.8) 05/20/19 04:00 Metamyelocytes % 2.0 % 05/20/19 04:00 Myelocytes % 0 % 05/20/19 04:00 Promyelocytes % 0 % 05/20/19 04:00 Blast Cells % 0 % 05/20/19 04:00 Nucleated RBC % Not Reportable 05/20/19 04:00 Seg Neutrophils # 6.5 K/mm3 (1.8-7.7) 05/18/19 01:50 Seg Neutrophils # Man 5.8 K/mm3 (1.8-7.7) 05/20/19 04:00 Band Neutrophils # 0.5 K/mm3 05/20/19 04:00 Lymphocytes # (Manual) 1.1 K/mm3 (1.2-5.4) L 05/20/19 04:00 Abs React Lymphs (Man) 0.0 K/mm3 05/20/19 04:00 Monocytes # (Manual) 0.7 K/mm3 (0.0-0.8) 05/20/19 04:00 Eosinophils # (Manual) 1.4 K/mm3 (0.0-0.4) H 05/20/19 04:00 Basophils # (Manual) 0.1 K/mm3 (0.0-0.1) 05/20/19 04:00 Metamyelocytes # 0.2 K/mm3 05/20/19 04:00 Myelocytes # 0.0 K/mm3 05/20/19 04:00 Promyelocytes # 0.0 K/mm3 05/20/19 04:00 Blast Cells # 0.0 K/mm3 05/20/19 04:00 WBC Morphology Not Reportable 05/20/19 04:00 Hypersegmented Neuts Not Reportable 05/20/19 04:00 Hyposegmented Neuts Not Reportable 05/20/19 04:00 Hypogranular Neuts Not Reportable 05/20/19 04:00 Smudge Cells Not Reportable 05/20/19 04:00 Toxic Granulation Not Reportable 05/20/19 04:00 Toxic Vacuolation Not Reportable 05/20/19 04:00 Dohle Bodies Not Reportable 05/20/19 04:00 Pelger-Huet Anomaly Not Reportable 05/20/19 04:00 Renea Rods Not Reportable 05/20/19 04:00 Platelet Estimate Consistent w auto 05/20/19 04:00 Clumped Platelets Not Reportable 05/20/19 04:00 Plt Clumps, EDTA Not Reportable 05/20/19 04:00 Large Platelets Not Reportable 05/20/19 04:00 Giant Platelets Not Reportable 05/20/19 04:00 Platelet Satelliting Not Reportable 05/20/19 04:00 Plt Morphology Comment Not Reportable 05/20/19 04:00 RBC Morphology Not Reportable 05/20/19 04:00 Dimorphic RBCs Not Reportable 05/20/19 04:00 Polychromasia Not Reportable 05/20/19 04:00 Hypochromasia Not Reportable 05/20/19 04:00 Poikilocytosis Not Reportable 05/20/19 04:00 Anisocytosis Not Reportable 05/20/19 04:00 Microcytosis Not Reportable 05/20/19 04:00 Macrocytosis Not Reportable 05/20/19 04:00 Spherocytes Not Reportable 05/20/19 04:00 Pappenheimer Bodies Not Reportable 05/20/19 04:00 Sickle Cells Not Reportable 05/20/19 04:00 Target Cells Rare 05/20/19 04:00 Tear Drop Cells Not Reportable 05/20/19 04:00 Ovalocytes Not Reportable 05/20/19 04:00 Stomatocytes Rare 05/20/19 04:00 Helmet Cells Not Reportable 05/20/19 04:00 Segov[place]-Minerva Bodies Not Reportable 05/20/19 04:00 [place] Rings Not Reportable 05/20/19 04:00 Dennis Cells Not Reportable 05/20/19 04:00 Bite Cells Not Reportable 05/20/19 04:00 Crenated Cell Not Reportable 05/20/19 04:00 Elliptocytes Not Reportable 05/20/19 04:00 Acanthocytes (Spur) Not Reportable 05/20/19 04:00 Rouleaux Not Reportable 05/20/19 04:00 Hemoglobin C Crystals Not Reportable 05/20/19 04:00 Schistocytes Not Reportable 05/20/19 04:00 Malaria parasites Not Reportable 05/20/19 04:00 Syed Bodies Not Reportable 05/20/19 04:00 Hem Pathologist Commnt No 05/20/19 04:00 PT 15.4 Sec. (12.2-14.9) H 05/01/19 Unknown INR 1.23 (0.87-1.13) H 05/01/19 Unknown APTT 22.7 Sec. (24.2-36.6) L 05/01/19 Unknown POC ABG pH 7.315 (7.35-7.45) L 05/21/19 04:33 ABG pH 7.281 pH Units (7.350-7.450) L 05/20/19 05:48 POC ABG pCO2 57.8 (35-45) H 05/21/19 04:33 ABG pCO2 52.0 mm Hg 05/20/19 05:48 POC ABG pO2 68 (80-105) L 05/21/19 04:33 ABG pO2 78.7 mm Hg (80.0-90.0) L 05/20/19 05:48 POC ABG HCO3 29.5 (22-26 mml/L) 05/21/19 04:33 ABG HCO3 24.0 mmol/L (20.0-26.0) 05/20/19 05:48 POC ABG Total CO2 31 (23-27mmol/L) 05/21/19 04:33 POC ABG O2 Sat 91 05/21/19 04:33 ABG O2 Saturation 94.5 % (95.0-99.0) L 05/20/19 05:48 ABG O2 Content 13.0 (0.0-44) 05/20/19 05:48 POC ABG Base Excess 3 ((-2) - (+3)mmol/L) 05/21/19 04:33 ABG Base Excess -3.0 mmol/L (-2.0-3.0) L 05/20/19 05:48 ABG Hemoglobin 9.9 gm/dl (14.0-18.0) L 05/20/19 05:48 ABG Carboxyhemoglobin 1.6 % (0.0-5.0) 05/20/19 05:48 ABG Methemoglobin 0.6 % (0.0-1.5) 05/20/19 05:48 Oxyhemoglobin 92.5 % (95.0-99.0) L 05/20/19 05:48 FiO2 50 % 05/21/19 04:33 Sodium 137 mmol/L (137-145) 05/21/19 05:20 Potassium 4.9 mmol/L (3.6-5.0) 05/21/19 05:20 Chloride 96.3 mmol/L (98-107) L 05/21/19 05:20 Carbon Dioxide 24 mmol/L (22-30) 05/21/19 05:20 Anion Gap 22 mmol/L 05/21/19 05:20 BUN 102 mg/dL (9-20) H 05/21/19 05:20 Creatinine 7.0 mg/dL (0.8-1.5) H 05/21/19 05:20 Estimated GFR 11 ml/min 05/21/19 05:20 BUN/Creatinine Ratio 15 % 05/21/19 05:20 Glucose 103 mg/dL (75-100) H 05/21/19 05:20 POC Glucose 100 (70-105) 05/21/19 05:07 Osmolality 327 Mosm/kg 05/07/19 13:45 Uric Acid 18.0 mg/dL (3.5-7.6) H 05/07/19 13:45 Calcium 8.5 mg/dL (8.4-10.2) 05/21/19 05:20 Phosphorus 4.90 mg/dL (2.5-4.5) H 05/02/19 00:06 Magnesium 2.30 mg/dL (1.7-2.3) 05/02/19 00:06 Total Bilirubin 0.20 mg/dL (0.1-1.2) 05/10/19 05:00 AST 34 units/L (5-40) 05/10/19 05:00 ALT 35 units/L (7-56) 05/10/19 05:00 Alkaline Phosphatase 45 units/L (35-129) 05/10/19 05:00 Total Creatine Kinase 131 units/L (55-170) 05/02/19 04:41 CK-MB (CK-2) 5.2 ng/mL (0.0-4.0) H 05/02/19 04:41 CK-MB (CK-2) Rel Index 3.9 (0-4) 05/02/19 04:41 Troponin T 0.067 ng/mL (0.00-0.029) H D 05/02/19 04:41 NT-Pro-B Natriuret Pep 6831 pg/mL (0-450) H 05/01/19 Unknown Total Protein 6.1 g/dL (6.3-8.2) L 05/10/19 05:00 Albumin 2.5 g/dL (3.9-5) L 05/10/19 05:00 Albumin/Globulin Ratio 0.7 % 05/10/19 05:00 Triglycerides 173 mg/dL (2-149) H 05/17/19 Unknown Cholesterol 173 mg/dL (50-199) 05/02/19 00:06 LDL Cholesterol Direct 126 mg/dL (50-130) 05/02/19 00:06 HDL Cholesterol 18 mg/dL (40-59) L 05/02/19 00:06 Cholesterol/HDL Ratio 9.61 % 05/02/19 00:06 Procalcitonin 0.54 ng/mL (<0.15) 05/03/19 11:52 Urine Color Yellow (Yellow) 05/20/19 12:00 Urine Turbidity Cloudy (Clear) 05/20/19 12:00 Urine pH 5.0 (5.0-7.0) 05/20/19 12:00 Ur Specific [place] 1.015 (1.003-1.030) 05/20/19 12:00 Urine Protein 30 mg/dl mg/dL (Negative) 05/20/19 12:00 Urine Glucose (UA) Neg mg/dL (Negative) 05/20/19 12:00 Urine Ketones Neg mg/dL (Negative) 05/20/19 12:00 Urine Blood Lg (Negative) 05/20/19 12:00 Urine Nitrite Neg (Negative) 05/20/19 12:00 Urine Bilirubin Neg (Negative) 05/20/19 12:00 Urine Urobilinogen < 2.0 mg/dL (<2.0) 05/20/19 12:00 Ur Leukocyte Esterase Mod (Negative) 05/20/19 12:00 Urine WBC (Auto) 26.0 /HPF (0.0-6.0) H 05/20/19 12:00 Urine RBC (Auto) 83.0 /HPF (0.0-6.0) 05/20/19 12:00 Urine Bacteria (Auto) 1+ /HPF (Negative) 05/20/19 12:00 Uric Acid Crystals 3+ 05/03/19 10:55 Urine Mucus Few /HPF 05/20/19 12:00 Urine Yeast (Budding) 3+ /HPF 05/20/19 12:00 Urine Creatinine 292.8 mg/dL (0.1-20.0) H 05/07/19 22:40 Urine Sodium 11 mmol/L 05/07/19 22:40 Urine Total Protein 269 mg/dL (5-11.8) H 05/07/19 22:40 Vancomycin Trough 20.5 ug/mL (5.0-20.0) H 05/15/19 09:00 Random Vancomycin 14.0 ug/mL (0-40.0) 05/21/19 05:20 AMNA Screen Negative (Negative) 05/07/19 13:45 Hepatitis A IgM Ab Non-reactive (NonReactive) 05/07/19 13:45 Hep Bs Antigen Non-reactive (Negative) 05/07/19 13:45 Hep B Core IgM Ab Non-reactive (NonReactive) 05/07/19 13:45 Hepatitis C Antibody Non-reactive (NonReactive) 05/07/19 13:45 Active Medications - Current Medications Current Medications: Generic Name Dose Route Start Last Admin Trade Name Freq PRN Reason Stop Dose Admin Acetaminophen 650 mg 05/01/19 22:46 05/21/19 05:27 Tylenol PO 650 mg Q4H PRN Administration Pain MILD(1-3)/Fever >100.5/FREEMAN Albumin Human 25 gm 05/19/19 10:47 Alburx 25% (Albumin) IV ARIANE PRN Hypotension Lipase/Protease/Amylase 1 each 05/14/19 15:[address] 10,500 Unit FEEDTUBE PRN PRN For Clogged Feeding Tube Dextrose 50 gm 05/01/19 20:24 D50w (25gm) Vial IV Q30MIN PRN Hypoglycemia Protocol Enoxaparin Sodium 30 mg 05/16/19 10:00 05/20/19 09:39 Enoxaparin SUB-Q 30 mg QDAY VICKEY Administration Epoetin Hugo 10,000 unit 05/19/19 10:47 Procrit IV ARIANE PRN hemodialysis Famotidine 20 mg 05/16/19 10:00 05/20/19 09:38 Pepcid PO 20 mg DAILY VICKEY Administration Hydralazine HCl 20 mg 05/13/19 08:09 05/14/19 18:09 Apresoline IV 20 mg Q4HR PRN Administration SBP >/=160 Hydrophilic Ointment 1 applic 05/01/19 21:14 Vaseline Lip Therapy TP Q2HR PRN Dry Lips Fentanyl Citrate 2,000 mcg in 100 mls @ 10.195 mls/hr 05/01/19 22:00 05/21/19 04:50 Fentanyl Drip Premix IV 2 mcg/kg/hr TITR VICKEY 20.39 mls/hr Administration Protocol 1 MCG/KG/HR Propofol 1,000 mg in 100 mls @ 7.011 mls/hr 05/03/19 04:00 05/21/19 05:22 Diprivan 10 Mg/Ml IV 15 mcg/kg/min TITR VICKEY 21.033 mls/hr Administration Protocol 5 MCG/KG/MIN Norepinephrine 4 mg in 250 mls @ 7.5 mls/hr 05/03/19 18:00 05/20/19 08:04 Levophed Drip 4 Mg/Ns 250 Ml IV 0 mcg/min TITR VICKEY 0 mls/hr Titration Protocol 2 MCG/MIN Sodium Chloride 500 mls @ 10 mls/hr 05/06/19 15:00 Nacl 0.9% 500 Ml IV DIRECT VICKEY Metronidazole 500 mg in 100 mls @ 100 mls/hr 05/11/19 14:00 05/21/19 06:19 Flagyl 500 Mg/100 Ml IV 100 mls/hr Q8HR VICKEY Administration Protocol Nicardipine HCl 50 mg/ Sodium 250 mls @ 25 mls/hr 05/13/19 10:00 05/14/19 23:12 Chloride IV 0 mg/hr TITR VICKEY 0 mls/hr Titration Protocol 5 MG/HR Sodium Bicarbonate 150 meq/ 1,150 mls @ 75 mls/hr 05/18/19 11:30 05/20/19 19: 12 Dextrose IV 75 mls/hr DIRECT VICKEY Administration Cefepime HCl 2 gm in 100 mls @ 200 mls/hr 05/18/19 11:00 05/20/19 20:05 Cefepime/Ns 2 Gm/100 Ml IV Infused Q24HR VICKEY Infusion Protocol Sodium Chloride 100 mls @ 999 mls/hr 05/19/19 10:47 05/20/19 08:14 Nacl 0.9% IV 999 mls/hr ARIANE PRN Administration Hypotension Labetalol HCl 100 mg 05/14/19 14:00 05/21/19 06:20 Labetalol PO Not Given Q8HR VICKEY Levetiracetam 750 mg 05/13/19 10:00 05/20/19 21:25 Keppra PO 750 mg BID VICKEY Administration Lorazepam 2 mg 05/06/19 06:22 05/10/19 16:17 Ativan IV 2 mg Q4H PRN Administration Seizures/AGITATION Multi-Ingred Cream/Lotion/Oil/Oint 1 applic 05/01/19 21:14 Artificial Tears Ophth Oint OU Q4HR PRN Dry Eye(s) Ondansetron HCl 4 mg 05/01/19 22:46 Zofran IV Q8H PRN Nausea And Vomiting Scopolamine 1 each 05/20/19 12:00 05/20/19 12:52 Transderm-Scop TD 1 each Q72HR VICKEY Administration Simple Syrup 15 ml 05/14/19 15:01 Simple Syrup FEEDTUBE PRN PRN Hypoglycemia Simple Syrup 30 ml 05/14/19 15:01 Simple Syrup FEEDTUBE PRN PRN Hypoglycemia Sodium Bicarbonate 325 mg 05/14/19 15:01 Sodium Bicarbonate FEEDTUBE PRN PRN For Clogged Feeding Tube Sodium Chloride 10 ml 05/02/19 10:00 05/20/19 21:25 Sodium Chloride Flush Syringe 10 Ml IV 10 ml BID VICKEY Administration Sodium Chloride 10 ml 05/01/19 22:46 05/05/19 02:28 Sodium Chloride Flush Syringe 10 Ml IV 10 ml PRN PRN Administration LINE FLUSH Nutrition/Malnutrition Assess - Dietary Evaluation Nutrition/Malnutrition Findings: Nutrition Notes Start: 05/04/19 12:54 Freq: Status: Active Protocol: Document 05/14/19 10:48 DW (Rec: 05/14/19 11:32 DW [id number]) Co-Sign 05/14/19 10:48 LP Nutrition Notes Initial or Follow up Reassessment Current Diagnosis Acute Kidney Injury,Sepsis, Respiratory Failure Current Diet Nepro 1.8 at 60ml/hr Labs/Tests Na 135 BUN 57 Cr 2.2 Pertinent Medications Propofol at 7.011 ml/hr (185 kcal) Height 6 ft 4 in Weight 227.5 kg [place] Body Weight (kg) 91.81 BMI 61.0 Weight Status Morbidly Obese Subjective/Other Information FU TF tolerance and Na labs Upon arrival noticed Nepro 1.8 running at goal of 50ml/hr Na lab did big jump from 05/11 of Na 145 to 135 today. Flush to decrease to 200ml qh4 Percent of energy/protein needs met: 86%/43% Burn Absent Trauma Absent Current % PO Negligible Minimum of two criteria No physical signs of malnutrition #1 Nutrition Diagnosis Inadequate oral intake Diagnosis Progress(for reassessment Continues documentation) Is patient on ventilator? Yes Is Patient Ambulatory and/or Out of Bed No REE-(Barber-St. Jeor-confined to bed) 3986.244 Kcal/Kg value to use for calculation 11 Approximate Energy Requirements Using 2503 kcal/Kg Calculation Used for Recommendations Kcal/kg Additional Notes PRO needs: 225 g (up to 2.5 g/ kg 91.81 IBW) Fluid needs: 1 ml/kcal Nutrition Intervention Change Diet Order: Continue TF Nutrition Support: Nepro 1.8 at 50 ml/hr flush 200 ml q4hr once Kcal 2,160 Protein (gm) 97 Fluid (mL) 872 Goal #1 TF tolerance Goal #2 Meet at least 75% kcal/PRO needs via TF Anticipated Discharge Needs: Unable to determine at this time Follow-Up By: 05/21/19 Additional Comments F/U for TF tolerance
[2019-05-21 08:56] LABS: Anisocytosis 1+; Band Neutrophils # (Manual) 0.6 K/mm3; Large Platelets Few; Macrocytosis Few; Myelocytes # (Manual) 0.2 K/mm3; Platelet Clumps Rare; Platelet Estimate Consistent w Auto; Total Cells Counted 100
[2019-05-21] MEDS: CEFEPIME/NS 2 GM/100 ML 2 GM/100 ML BAG IV SCH (09:42)
[2019-05-21] MEDS: levETIRAcetam 500 MG/5 ML ORAL LIQD PO SCH ×2 (09:43→21:35)
[2019-05-21] MEDS: ENOXAPARIN 30 MG/0.3 ML INJ SUB-Q SCH (09:43)
[2019-05-21] MEDS: FAMOTIDINE 20 MG TAB PO SCH (09:44)
--- NOTE | 2019-05-21 10:13 | Progress Note ---
Assessment and Plan Cultures: Blood cultures 05/11/19: no growth thus far Blood cultures 05/18/19 pending Sputum culture 05/11/19: no growth thus far urine culture: no growth resp culture: no growth Blood culture 05/18/2019: no growth thus far urine culture 05/20/2019: normal skin shandra A/P: 34-year-old male with obesity admitted with: #Fever, SIRS with shock: shock resolved, still fever. Initially felt to be ?aspiration related. Apparently was using CPAP. Persistent febrile again, likely ?UTI. Repeat UA showed pyuria, had indwelling Han which was removed again 05/20. Urine culture with normal skin shandra. Fevers now recurred since 05/17. Off pressors for 48h. #Acute hypoxic hypercapneic respiratory failure, possibly obesity hypoventilation syndrome: on the vent. Pulmonary managing. #Morbid obesity #CARLA: creatinine elevated. dose abx accordingly. Now on HD via vascath #Elevated LFTs: RUQ US showed fatty liver, small GB sludge. Improving. #Acute encephalopathy with ?seizure activity: persistent fevers. Has been receiving empiric meningitis coverage #UTI: s/p han removal on 05/20 Recs: - repeat blood cx - repeat sputum cx as yesterday's sample noted poor specimen - continue cefepime - continue metronidazole - if not better in 48h will request chest CT scan eval for complicated pneumonia will follow, I am covering this weekend Gladys Jackson MD [facility] ([facility]) Office [phone] Subjective Date of service: 05/21/19 Principal diagnosis: HF; acute hypoxemic resp failure, SIRS, CARLA Interval history: Remains on the vent tmax 101, off pressors, han removed on 05/20 Objective - Exam Narrative Exam: Constitutional: obses, sedated, intubated. Head, Ears, Nose: Normocephalic, atraumatic. External ears, nose normal Eyes: Conjunctivae/corneas clear. No icterus. No ptosis. Neck: intubated Oral: intubated ETT with thick brown secretion Cardiovascular: S1, S2 normal. Respiratory: carlos rhonchi GI: Soft, non-tender; bowel sounds normal. No peritoneal signs Musculoskeletal: No pedal edema, no cyanosis. Skin: No rash or abscess Hem/Lymphatic: No palpable cervical or supraclavicular nodes. No lymphangitis Psych: no agitation Neurological: sedated, intubated, on vent right vascath with clean dressing - Constitutional Vitals: Vital Signs Temp Pulse Resp BP Pulse Ox 99.8 F H 105 H 25 H 126/47 97 05/21/19 08:00 05/21/19 09:15 05/21/19 09:15 05/21/19 09:15 05/21/19 09:15 Temperature -Last 24 Hours Temperature 99.8 F Temperature 101.1 F Temperature 98.7 F Temperature 98.1 F Temperature 98.9 F Temperature 99.4 F Temperature 99.4 F - Labs CBC & Chem 7: 05/21/19 Unknown 05/21/19 05:20 Labs: Abnormal lab results 05/20/19 05/21/19 05/21/19 Range/Units 12:00 04:33 05:20 RBC (3.65-5.03) M/mm3 Hgb (11.8-15.2) gm/dl Hct (35.5-45.6) % MCH (28-32) pg RDW (13.2-15.2) % Seg Neuts % (Manual) (40.0-70.0) % Lymphocytes % (Manual) (13.4-35.0) % Monocytes % (Manual) (0.0-7.3) % Eosinophils % (Manual) (0.0-4.3) % Lymphocytes # (Manual) (1.2-5.4) K/mm3 Monocytes # (Manual) (0.0-0.8) K/mm3 Eosinophils # (Manual) (0.0-0.4) K/mm3 POC ABG pH 7.315 L (7.35-7.45) POC ABG pCO2 57.8 H (35-45) POC ABG pO2 68 L (80-105) Chloride 96.3 L (98-107) mmol/L BUN 102 H (9-20) mg/dL Creatinine 7.0 H (0.8-1.5) mg/dL Glucose 103 H (75-100) mg/dL Urine WBC (Auto) 26.0 H (0.0-6.0) /HPF 05/21/19 Range/Units Unknown RBC 3.38 L (3.65-5.03) M/mm3 Hgb 9.1 L (11.8-15.2) gm/dl Hct 28.5 L (35.5-45.6) % MCH 27 L (28-32) pg RDW 17.4 H (13.2-15.2) % Seg Neuts % (Manual) 71.0 H (40.0-70.0) % Lymphocytes % (Manual) 1.0 L (13.4-35.0) % Monocytes % (Manual) 11.0 H (0.0-7.3) % Eosinophils % (Manual) 6.0 H (0.0-4.3) % Lymphocytes # (Manual) 0.1 L (1.2-5.4) K/mm3 Monocytes # (Manual) 1.0 H (0.0-0.8) K/mm3 Eosinophils # (Manual) 0.6 H (0.0-0.4) K/mm3 POC ABG pH (7.35-7.45) POC ABG pCO2 (35-45) POC ABG pO2 (80-105) Chloride (98-107) mmol/L BUN (9-20) mg/dL Creatinine (0.8-1.5) mg/dL Glucose (75-100) mg/dL Urine WBC (Auto) (0.0-6.0) /HPF
--- NOTE | 2019-05-21 12:22 | Progress Note ---
Assessment and Plan Imp: 1. Acute respiratory failure, hypoxia 2. A/C respiratory failure, hypercapnea 3. LANDON/OHS/Morbid obesity 4. CARLA 5. Pulm HTN 6. Sepsis -> ? Pneumonia, ? Meningitis 7. Seizures Rec: 1. Wean PEEP to +16 again today, with goal sats 88% or >; FiO2 currently at 50% 2. Sedation same 3. May need trach though poor oxygenation/high PEEP currently precludes 4. Recommend aggressive volume removal with HD to try to help with oxygenation and ventilator weaning; stop IVFs as do not believe he is dry 5. ABX per ID; fevers better; cultures negative; unsure if he would fit in the CT scanner if CT imaging is desired 6. Keppra BID 7. TFs as tolerated; DVT and GI PPx 8. Still with poor prognosis; patient w/ marginal improvement since admission 9. CCT 31 minutes No family present today Subjective Date of service: 05/21/19 Principal diagnosis: HF; acute hypoxemic resp failure, SIRS, CARLA Interval history: BP stable off pressors. Sedated on Propofol and Fentanyl. Cannot given history. On FiO2 of 50% and PEEP of +18. Active Medications Acetaminophen (Tylenol) 650 mg PO Q4H PRN PRN Reason: Pain MILD(1-3)/Fever >100.5/FREEMAN Last Admin: 05/21/19 05:27 Dose: 650 mg Documented by: Albumin Human (Alburx 25% (Albumin)) 25 gm IV ARIANE PRN PRN Reason: Hypotension Lipase/Protease/Amylase (Pancreaze Dr 10,500 Unit) 1 each FEEDTUBE PRN PRN PRN Reason: For Clogged Feeding Tube Dextrose (D50w (25gm) Vial) 50 gm IV Q30MIN PRN; Protocol PRN Reason: Hypoglycemia Enoxaparin Sodium (Enoxaparin) 30 mg SUB-Q QDAY [facility] Last Admin: 05/21/19 09:43 Dose: 30 mg Documented by: Epoetin Hugo (Procrit) 10,000 unit IV ARIANE PRN PRN Reason: hemodialysis Famotidine (Pepcid) 20 mg PO DAILY [facility] Last Admin: 05/21/19 09:44 Dose: 20 mg Documented by: Hydralazine HCl (Apresoline) 20 mg IV Q4HR PRN PRN Reason: SBP >/=160 Last Admin: 05/14/19 18:09 Dose: 20 mg Documented by: Hydrophilic Ointment (Vaseline Lip Therapy) 1 applic TP Q2HR PRN PRN Reason: Dry Lips Fentanyl Citrate (Fentanyl Drip Premix) 2,000 mcg in 100 mls @ 10.195 mls/hr IV TITR VICKEY; Protocol Last Admin: 05/21/19 09:38 Dose: 2 mcg/kg/hr, 20.39 mls/hr Documented by: Propofol (Diprivan 10 Mg/Ml) 1,000 mg in 100 mls @ 7.011 mls/hr IV TITR VICKEY; Protocol Last Admin: 05/21/19 10:05 Dose: 15 mcg/kg/min, 21.033 mls/hr Documented by: Norepinephrine (Levophed Drip 4 Mg/Ns 250 Ml) 4 mg in 250 mls @ 7.5 mls/hr IV TITR VICKEY; Protocol Last Titration: 05/20/19 08:04 Dose: 0 mcg/min, 0 mls/hr Documented by: Sodium Chloride (Nacl 0.9% 500 Ml) 500 mls @ 10 mls/hr IV DIRECT V[facility]KEY Metronidazole (Flagyl 500 Mg/100 Ml) 500 mg in 100 mls @ 100 mls/hr IV Q8HR VICKEY; Protocol Last Admin: 05/21/19 06:19 Dose: 100 mls/hr Documented by: Nicardipine HCl 50 mg/ Sodium (Chloride) 250 mls @ 25 mls/hr IV TITR VICKEY; Protocol Last Titration: 05/14/19 23:12 Dose: 0 mg/hr, 0 mls/hr Documented by: Cefepime HCl (Cefepime/Ns 2 Gm/100 Ml) 2 gm in 100 mls @ 200 mls/hr IV Q24HR VICKEY; Protocol Last Admin: 05/21/19 09:42 Dose: 200 mls/hr Documented by: Sodium Chloride (Nacl 0.9%) 100 mls @ 999 mls/hr IV ARIANE PRN PRN Reason: Hypotension Last Admin: 05/20/19 08:14 Dose: 999 mls/hr Documented by: Labetalol HCl (Labetalol) 100 mg PO Q8HR VICKEY Last Admin: 05/21/19 06:20 Dose: Not Given Documented by: Levetiracetam (Keppra) 750 mg PO BID VICKEY Last Admin: 05/21/19 09:43 Dose: 750 mg Documented by: Lorazepam (Ativan) 2 mg IV Q4H PRN PRN Reason: Seizures/AGITATION Last Admin: 05/10/19 16:17 Dose: 2 mg Documented by: Multi-Ingred Cream/Lotion/Oil/Oint (Artificial Tears Ophth Oint) 1 applic OU Q4HR PRN PRN Reason: Dry Eye(s) Ondansetron HCl (Zofran) 4 mg IV Q8H PRN PRN Reason: Nausea And Vomiting Scopolamine (Transderm-Scop) 1 each TD Q72HR [facility] Last Admin: 05/20/19 12:52 Dose: 1 each Documented by: Simple Syrup (Simple Syrup) 15 ml FEEDTUBE PRN PRN PRN Reason: Hypoglycemia Simple Syrup (Simple Syrup) 30 ml FEEDTUBE PRN PRN PRN Reason: Hypoglycemia Sodium Bicarbonate (Sodium Bicarbonate) 325 mg FEEDTUBE PRN PRN PRN Reason: For Clogged Feeding Tube Sodium Chloride (Sodium Chloride Flush Syringe 10 Ml) 10 ml IV BID [facility] Last Admin: 05/20/19 21:25 Dose: 10 ml Documented by: Sodium Chloride (Sodium Chloride Flush Syringe 10 Ml) 10 ml IV PRN PRN PRN Reason: LINE FLUSH Last Admin: 05/05/19 02:28 Dose: 10 ml Documented by: Objective Vital Signs - 12hr 05/21/19 05/21/19 05/21/19 00:30 00:45 01:00 Temperature Pulse Rate 94 H 93 H 95 H Pulse Rate [ From Monitor] Respiratory 25 H 25 H 25 H Rate Blood Pressure 98/44 94/42 98/42 O2 Sat by Pulse 96 97 95 Oximetry 05/21/19 05/21/19 05/21/19 01:15 01:30 01:45 Temperature Pulse Rate 93 H 96 H 94 H Pulse Rate [ From Monitor] Respiratory 24 24 23 Rate Blood Pressure 100/44 98/44 100/40 O2 Sat by Pulse 96 96 96 Oximetry 05/21/19 05/21/19 05/21/19 02:00 02:15 02:30 Temperature Pulse Rate 103 H 103 H 104 H Pulse Rate [ From Monitor] Respiratory 25 H 26 H 23 Rate Blood Pressure 110/55 101/48 110/44 O2 Sat by Pulse 95 95 95 Oximetry 05/21/19 05/21/19 05/21/19 02:45 03:00 03:15 Temperature Pulse Rate 106 H 104 H 105 H Pulse Rate [ From Monitor] Respiratory 25 H 25 H 22 Rate Blood Pressure 105/49 106/45 114/52 O2 Sat by Pulse 94 95 94 Oximetry 05/21/19 05/21/19 05/21/19 03:17 03:30 03:45 Temperature 101.1 F H Pulse Rate 106 H 104 H Pulse Rate [ From Monitor] Respiratory 28 H 26 H Rate Blood Pressure 111/55 113/53 O2 Sat by Pulse 93 94 Oximetry 05/21/19 05/21/19 05/21/19 04:00 04:15 04:21 Temperature Pulse Rate 101 H 101 H 101 H Pulse Rate [ 94 H From Monitor] Respiratory 27 H 24 Rate Blood Pressure 102/44 106/47 106/47 O2 Sat by Pulse 93 94 93 Oximetry 05/21/19 05/21/19 05/21/19 04:30 04:45 05:00 Temperature Pulse Rate 101 H 103 H 104 H Pulse Rate [ From Monitor] Respiratory 27 H 28 H 28 H Rate Blood Pressure 106/45 105/49 109/50 O2 Sat by Pulse 93 94 94 Oximetry 05/21/19 05/21/19 05/21/19 05:15 05:30 05:45 Temperature Pulse Rate 108 H 107 H Pulse Rate [ From Monitor] Respiratory 19 17 Rate Blood Pressure 109/50 106/47 104/56 O2 Sat by Pulse 93 94 36 L Oximetry 05/21/19 05/21/19 05/21/19 06:00 06:15 06:20 Temperature Pulse Rate 110 H 104 H 103 H Pulse Rate [ From Monitor] Respiratory 18 22 Rate Blood Pressure 108/57 112/38 112/38 O2 Sat by Pulse 91 91 Oximetry 05/21/19 05/21/19 05/21/19 06:30 06:45 07:00 Temperature Pulse Rate 102 H 101 H 99 H Pulse Rate [ From Monitor] Respiratory 11 L 15 19 Rate Blood Pressure 108/37 111/40 113/37 O2 Sat by Pulse 94 94 94 Oximetry 05/21/19 05/21/19 05/21/19 07:15 07:30 07:45 Temperature Pulse Rate 99 H 103 H 100 H Pulse Rate [ From Monitor] Respiratory 18 18 19 Rate Blood Pressure 114/40 120/58 110/40 O2 Sat by Pulse 95 96 96 Oximetry 05/21/19 05/21/19 05/21/19 08:00 08:15 08:23 Temperature 99.8 F H Pulse Rate 97 H 96 H 100 H Pulse Rate [ From Monitor] Respiratory 17 14 Rate Blood Pressure 113/39 112/39 112/39 O2 Sat by Pulse 96 97 95 Oximetry 05/21/19 05/21/19 05/21/19 08:30 08:45 09:00 Temperature Pulse Rate 95 H 97 H 102 H Pulse Rate [ From Monitor] Respiratory 20 21 18 Rate Blood Pressure 114/36 107/40 122/57 O2 Sat by Pulse 96 97 97 Oximetry 05/21/19 05/21/19 09:15 12:00 Temperature Pulse Rate 105 H 96 H Pulse Rate [ From Monitor] Respiratory 25 H Rate Blood Pressure 126/47 102/43 O2 Sat by Pulse 97 97 Oximetry Constitutional: other (morbidly obese male, sedated on vent, orally intubated) Eyes: non-icteric ENT: oropharynx moist Neck: other (extremely large in circumference) Effort: normal Ascultation: Bilateral: diminished breath sounds (secondary to body habitus) Cardiovascular: regular rate and rhythm (no mrg) Gastrointestinal: normoactive bowel sounds, non-tender, other (obese) Integumentary: other (L hand is wrapped) Extremities: no cyanosis, pink and warm, other (1+ generalized edema) Neurologic: unable to assess Psychiatric: other (unable to assess) CBC and BMP: 05/21/19 Unknown 05/21/19 05:20 ABG, PT/INR, D-dimer: ABG POC ABG pH 7.315 (7.35-7.45) L 05/21/19 04:33 ABG pH 7.281 pH Units (7.350-7.450) L 05/20/19 05:48 POC ABG pCO2 57.8 (35-45) H 05/21/19 04:33 ABG pCO2 52.0 mm Hg 05/20/19 05:48 POC ABG pO2 68 (80-105) L 05/21/19 04:33 ABG pO2 78.7 mm Hg (80.0-90.0) L 05/20/19 05:48 POC ABG HCO3 29.5 (22-26 mml/L) 05/21/19 04:33 POC ABG Total CO2 31 (23-27mmol/L) 05/21/19 04:33 POC ABG O2 Sat 91 05/21/19 04:33 ABG O2 Saturation 94.5 % (95.0-99.0) L 05/20/19 05:48 PT/INR, D-dimer PT 15.4 Sec. (12.2-14.9) H 05/01/19 Unknown INR 1.23 (0.87-1.13) H 05/01/19 Unknown Abnormal lab findings: Abnormal Labs 05/01/19 05/01/19 05/01/19 17:50 19:26 22:36 WBC RBC Hgb Hct MCV MCH MCHC RDW Lymph % (Auto) [place] % (Auto) Eos % (Auto) Lymph # [place] # Eos # Seg Neutrophils % Seg Neuts % (Manual) Lymphocytes % (Manual) Monocytes % (Manual) Eosinophils % (Manual) Nucleated RBC % Seg Neutrophils # Lymphocytes # (Manual) Monocytes # (Manual) Eosinophils # (Manual) PT INR APTT POC ABG pH 7.272 L 7.331 L ABG pH POC ABG pCO2 52.8 H POC ABG pO2 ABG pO2 ABG HCO3 ABG O2 Saturation ABG Base Excess ABG Hemoglobin Oxyhemoglobin Sodium 136 L Potassium 6.5 H* Chloride 97.2 L Carbon Dioxide BUN 60 H Creatinine Glucose 113 H POC Glucose Uric Acid Calcium Phosphorus Magnesium 2.40 H AST 139 H ALT 154 H Total Creatine Kinase CK-MB (CK-2) Troponin T NT-Pro-B Natriuret Pep Total Protein Albumin 3.8 L Triglycerides HDL Cholesterol Urine WBC (Auto) Urine Creatinine Urine Total Protein Vancomycin Trough 05/01/19 05/01/19 05/01/19 Unknown Unknown Unknown WBC 16.1 H RBC Hgb Hct MCV MCH MCHC RDW 17.2 H Lymph % (Auto) [place] % (Auto) 9.6 H Eos % (Auto) Lymph # [place] # 1.5 H Eos # Seg Neutrophils % 73.0 H Seg Neuts % (Manual) Lymphocytes % (Manual) Monocytes % (Manual) Eosinophils % (Manual) Nucleated RBC % Seg Neutrophils # 11.7 H Lymphocytes # (Manual) Monocytes # (Manual) Eosinophils # (Manual) PT 15.4 H INR 1.23 H APTT 22.7 L POC ABG pH ABG pH POC ABG pCO2 POC ABG pO2 ABG pO2 ABG HCO3 ABG O2 Saturation ABG Base Excess ABG Hemoglobin Oxyhemoglobin Sodium Potassium Chloride Carbon Dioxide BUN Creatinine Glucose POC Glucose Uric Acid Calcium Phosphorus Magnesium AST ALT Total Creatine Kinase CK-MB (CK-2) Troponin T NT-Pro-B Natriuret Pep 6831 H Total Protein Albumin Triglycerides HDL Cholesterol Urine WBC (Auto) Urine Creatinine Urine Total Protein Vancomycin Trough 05/01/19 05/02/19 05/02/19 Unknown 00:06 00:06 WBC RBC Hgb Hct MCV MCH MCHC RDW Lymph % (Auto) [place] % (Auto) Eos % (Auto) Lymph # [place] # Eos # Seg Neutrophils % Seg Neuts % (Manual) Lymphocytes % (Manual) Monocytes % (Manual) Eosinophils % (Manual) Nucleated RBC % Seg Neutrophils # Lymphocytes # (Manual) Monocytes # (Manual) Eosinophils # (Manual) PT INR APTT POC ABG pH ABG pH POC ABG pCO2 POC ABG pO2 ABG pO2 ABG HCO3 ABG O2 Saturation ABG Base Excess ABG Hemoglobin Oxyhemoglobin Sodium Potassium Chloride Carbon Dioxide BUN Creatinine Glucose POC Glucose Uric Acid Calcium Phosphorus 4.90 H Magnesium AST ALT Total Creatine Kinase 226 H CK-MB (CK-2) 5.7 H Troponin T 0.044 H NT-Pro-B Natriuret Pep Total Protein Albumin Triglycerides 182 H HDL Cholesterol 18 L Urine WBC (Auto) Urine Creatinine Urine Total Protein Vancomycin Trough 05/02/19 05/02/19 05/02/19 02:08 04:40 04:41 WBC 17.6 H RBC Hgb Hct MCV MCH 27 L MCHC RDW 17.4 H Lymph % (Auto) 10.2 L [place] % (Auto) 11.0 H Eos % (Auto) Lymph # [place] # 1.9 H Eos # Seg Neutrophils % 78.0 H Seg Neuts % (Manual) Lymphocytes % (Manual) Monocytes % (Manual) Eosinophils % (Manual) Nucleated RBC % Seg Neutrophils # 13.8 H Lymphocytes # (Manual) Monocytes # (Manual) Eosinophils # (Manual) PT INR APTT POC ABG pH ABG pH POC ABG pCO2 46.8 H POC ABG pO2 63 L ABG pO2 ABG HCO3 ABG O2 Saturation ABG Base Excess ABG Hemoglobin Oxyhemoglobin Sodium Potassium Chloride 96.3 L Carbon Dioxide BUN 63 H Creatinine 1.7 H Glucose POC Glucose Uric Acid Calcium Phosphorus Magnesium AST ALT Total Creatine Kinase CK-MB (CK-2) Troponin T NT-Pro-B Natriuret Pep Total Protein Albumin Triglycerides HDL Cholesterol Urine WBC (Auto) Urine Creatinine Urine Total Protein Vancomycin Trough 05/02/19 05/02/19 05/02/19 04:41 04:41 16:05 WBC RBC Hgb Hct MCV MCH MCHC RDW Lymph % (Auto) [place] % (Auto) Eos % (Auto) Lymph # [place] # Eos # Seg Neutrophils % Seg Neuts % (Manual) Lymphocytes % (Manual) Monocytes % (Manual) Eosinophils % (Manual) Nucleated RBC % Seg Neutrophils # Lymphocytes # (Manual) Monocytes # (Manual) Eosinophils # (Manual) PT INR APTT POC ABG pH ABG pH POC ABG pCO2 POC ABG pO2 ABG pO2 66.6 L ABG HCO3 31.9 H ABG O2 Saturation 92.5 L ABG Base Excess 5.8 H ABG Hemoglobin 13.3 L Oxyhemoglobin 90.6 L Sodium Potassium Chloride 97.2 L Carbon Dioxide BUN 61 H Creatinine 1.8 H Glucose POC Glucose Uric Acid Calcium Phosphorus Magnesium AST ALT Total Creatine Kinase CK-MB (CK-2) 5.2 H Troponin T 0.067 H D NT-Pro-B Natriuret Pep Total Protein Albumin Triglycerides HDL Cholesterol Urine WBC (Auto) Urine Creatinine Urine Total Protein Vancomycin Trough 05/02/19 05/03/19 05/03/19 20:39 04:35 05:05 WBC 11.8 H RBC Hgb Hct MCV MCH 27 L MCHC 31 L RDW 17.2 H Lymph % (Auto) [place] % (Auto) Eos % (Auto) Lymph # [place] # Eos # Seg Neutrophils % Seg Neuts % (Manual) Lymphocytes % (Manual) Monocytes % (Manual) Eosinophils % (Manual) Nucleated RBC % Seg Neutrophils # Lymphocytes # (Manual) Monocytes # (Manual) Eosinophils # (Manual) PT INR APTT POC ABG pH ABG pH POC ABG pCO2 53.6 H 54.0 H POC ABG pO2 55 L 63 L ABG pO2 ABG HCO3 ABG O2 Saturation ABG Base Excess ABG Hemoglobin Oxyhemoglobin Sodium Potassium Chloride Carbon Dioxide BUN Creatinine Glucose POC Glucose Uric Acid Calcium Phosphorus Magnesium AST ALT Total Creatine Kinase CK-MB (CK-2) Troponin T NT-Pro-B Natriuret Pep Total Protein Albumin Triglycerides HDL Cholesterol Urine WBC (Auto) Urine Creatinine Urine Total Protein Vancomycin Trough 05/03/19 05/03/19 05/03/19 05:05 10:55 16:48 WBC RBC Hgb Hct MCV MCH MCHC RDW Lymph % (Auto) [place] % (Auto) Eos % (Auto) Lymph # [place] # Eos # Seg Neutrophils % Seg Neuts % (Manual) Lymphocytes % (Manual) Monocytes % (Manual) Eosinophils % (Manual) Nucleated RBC % Seg Neutrophils # Lymphocytes # (Manual) Monocytes # (Manual) Eosinophils # (Manual) PT INR APTT POC ABG pH 7.604 H ABG pH POC ABG pCO2 POC ABG pO2 58 L ABG pO2 ABG HCO3 ABG O2 Saturation ABG Base Excess ABG Hemoglobin Oxyhemoglobin Sodium Potassium Chloride Carbon Dioxide BUN 52 H Creatinine 1.9 H Glucose 103 H POC Glucose Uric Acid Calcium Phosphorus Magnesium AST ALT Total Creatine Kinase CK-MB (CK-2) Troponin T NT-Pro-B Natriuret Pep Total Protein Albumin Triglycerides HDL Cholesterol Urine WBC (Auto) 33.0 H Urine Creatinine Urine Total Protein Vancomycin Trough 05/04/19 05/04/19 05/04/19 04:49 06:50 06:50 WBC 16.0 H RBC Hgb Hct MCV MCH 27 L MCHC 31 L RDW 17.8 H Lymph % (Auto) [place] % (Auto) Eos % (Auto) Lymph # [place] # Eos # Seg Neutrophils % Seg Neuts % (Manual) Lymphocytes % (Manual) Monocytes % (Manual) Eosinophils % (Manual) Nucleated RBC % Seg Neutrophils # Lymphocytes # (Manual) Monocytes # (Manual) Eosinophils # (Manual) PT INR APTT POC ABG pH 7.273 L ABG pH POC ABG pCO2 POC ABG pO2 ABG pO2 ABG HCO3 ABG O2 Saturation ABG Base Excess ABG Hemoglobin Oxyhemoglobin Sodium 148 H Potassium 5.5 H Chloride Carbon Dioxide BUN 53 H Creatinine 3.3 H D Glucose 106 H POC Glucose Uric Acid Calcium 8.3 L Phosphorus Magnesium AST ALT Total Creatine Kinase CK-MB (CK-2) Troponin T NT-Pro-B Natriuret Pep Total Protein Albumin Triglycerides HDL Cholesterol Urine WBC (Auto) Urine Creatinine Urine Total Protein Vancomycin Trough 05/05/19 05/05/19 05/05/19 00:05 04:30 05:00 WBC RBC Hgb Hct MCV MCH MCHC RDW Lymph % (Auto) [place] % (Auto) Eos % (Auto) Lymph # [place] # Eos # Seg Neutrophils % Seg Neuts % (Manual) Lymphocytes % (Manual) Monocytes % (Manual) Eosinophils % (Manual) Nucleated RBC % Seg Neutrophils # Lymphocytes # (Manual) Monocytes # (Manual) Eosinophils # (Manual) PT INR APTT POC ABG pH 7.225 L ABG pH POC ABG pCO2 > 70 H POC ABG pO2 ABG pO2 ABG HCO3 ABG O2 Saturation ABG Base Excess ABG Hemoglobin Oxyhemoglobin Sodium 151 H Potassium 5.1 H Chloride Carbon Dioxide BUN 64 H Creatinine 3.5 H Glucose 117 H POC Glucose 141 H Uric Acid Calcium 7.5 L Phosphorus Magnesium AST 93 H ALT 65 H Total Creatine Kinase CK-MB (CK-2) Troponin T NT-Pro-B Natriuret Pep Total Protein Albumin 2.9 L Triglycerides HDL Cholesterol Urine WBC (Auto) Urine Creatinine Urine Total Protein Vancomycin Trough 05/05/19 05/05/19 05/05/19 05:00 12:02 17:46 WBC 12.0 H RBC Hgb 11.3 L Hct MCV MCH 27 L MCHC 30 L RDW 18.4 H Lymph % (Auto) 7.9 L [place] % (Auto) 10.2 H Eos % (Auto) Lymph # 1.0 L [place] # 1.2 H Eos # Seg Neutrophils % 80.8 H Seg Neuts % (Manual) Lymphocytes % (Manual) Monocytes % (Manual) Eosinophils % (Manual) Nucleated RBC % Seg Neutrophils # 9.7 H Lymphocytes # (Manual) Monocytes # (Manual) Eosinophils # (Manual) PT INR APTT POC ABG pH ABG pH POC ABG pCO2 POC ABG pO2 ABG pO2 ABG HCO3 ABG O2 Saturation ABG Base Excess ABG Hemoglobin Oxyhemoglobin Sodium Potassium Chloride Carbon Dioxide BUN Creatinine Glucose POC Glucose 125 H 112 H Uric Acid Calcium Phosphorus Magnesium AST ALT Total Creatine Kinase CK-MB (CK-2) Troponin T NT-Pro-B Natriuret Pep Total Protein Albumin Triglycerides HDL Cholesterol Urine WBC (Auto) Urine Creatinine Urine Total Protein Vancomycin Trough 05/05/19 05/06/19 05/06/19 23:42 03:58 04:45 WBC 11.4 H RBC Hgb 10.7 L Hct 34.2 L MCV MCH 27 L MCHC 31 L RDW 16.9 H Lymph % (Auto) [place] % (Auto) Eos % (Auto) Lymph # [place] # Eos # Seg Neutrophils % Seg Neuts % (Manual) Lymphocytes % (Manual) Monocytes % (Manual) Eosinophils % (Manual) Nucleated RBC % Seg Neutrophils # Lymphocytes # (Manual) Monocytes # (Manual) Eosinophils # (Manual) PT INR APTT POC ABG pH ABG pH POC ABG pCO2 62.4 H POC ABG pO2 111 H ABG pO2 ABG HCO3 ABG O2 Saturation ABG Base Excess ABG Hemoglobin Oxyhemoglobin Sodium Potassium Chloride Carbon Dioxide BUN Creatinine Glucose POC Glucose 128 H Uric Acid Calcium Phosphorus Magnesium AST ALT Total Creatine Kinase CK-MB (CK-2) Troponin T NT-Pro-B Natriuret Pep Total Protein Albumin Triglycerides HDL Cholesterol Urine WBC (Auto) Urine Creatinine Urine Total Protein Vancomycin Trough 05/06/19 05/06/19 05/06/19 04:45 05:33 12:30 WBC RBC Hgb Hct MCV MCH MCHC RDW Lymph % (Auto) [place] % (Auto) Eos % (Auto) Lymph # [place] # Eos # Seg Neutrophils % Seg Neuts % (Manual) Lymphocytes % (Manual) Monocytes % (Manual) Eosinophils % (Manual) Nucleated RBC % Seg Neutrophils # Lymphocytes # (Manual) Monocytes # (Manual) Eosinophils # (Manual) PT INR APTT POC ABG pH ABG pH POC ABG pCO2 POC ABG pO2 ABG pO2 ABG HCO3 ABG O2 Saturation ABG Base Excess ABG Hemoglobin Oxyhemoglobin Sodium 149 H Potassium Chloride Carbon Dioxide 31 H BUN 67 H Creatinine 3.2 H Glucose 125 H POC Glucose 117 H 116 H Uric Acid Calcium 7.5 L Phosphorus Magnesium AST ALT Total Creatine Kinase CK-MB (CK-2) Troponin T NT-Pro-B Natriuret Pep Total Protein Albumin Triglycerides HDL Cholesterol Urine WBC (Auto) Urine Creatinine Urine Total Protein Vancomycin Trough 05/06/19 05/06/19 05/07/19 18:34 23:16 05:22 WBC RBC Hgb Hct MCV MCH MCHC RDW Lymph % (Auto) [place] % (Auto) Eos % (Auto) Lymph # [place] # Eos # Seg Neutrophils % Seg Neuts % (Manual) Lymphocytes % (Manual) Monocytes % (Manual) Eosinophils % (Manual) Nucleated RBC % Seg Neutrophils # Lymphocytes # (Manual) Monocytes # (Manual) Eosinophils # (Manual) PT INR APTT POC ABG pH ABG pH POC ABG pCO2 POC ABG pO2 ABG pO2 ABG HCO3 ABG O2 Saturation ABG Base Excess ABG Hemoglobin Oxyhemoglobin Sodium Potassium Chloride Carbon Dioxide BUN Creatinine Glucose POC Glucose 128 H 143 H 166 H Uric Acid Calcium Phosphorus Magnesium AST ALT Total Creatine Kinase CK-MB (CK-2) Troponin T NT-Pro-B Natriuret Pep Total Protein Albumin Triglycerides HDL Cholesterol Urine WBC (Auto) Urine Creatinine Urine Total Protein Vancomycin Trough 05/07/19 05/07/19 05/07/19 06:33 07:03 09:35 WBC RBC Hgb Hct MCV MCH MCHC RDW Lymph % (Auto) [place] % (Auto) Eos % (Auto) Lymph # [place] # Eos # Seg Neutrophils % Seg Neuts % (Manual) Lymphocytes % (Manual) Monocytes % (Manual) Eosinophils % (Manual) Nucleated RBC % Seg Neutrophils # Lymphocytes # (Manual) Monocytes # (Manual) Eosinophils # (Manual) PT INR APTT POC ABG pH 7.263 L 7.288 L ABG pH POC ABG pCO2 POC ABG pO2 51 L 56 L ABG pO2 ABG HCO3 ABG O2 Saturation ABG Base Excess ABG Hemoglobin Oxyhemoglobin Sodium Potassium Chloride Carbon Dioxide BUN 76 H Creatinine 3.2 H Glucose 147 H POC Glucose Uric Acid Calcium 7.9 L Phosphorus Magnesium AST ALT Total Creatine Kinase CK-MB (CK-2) Troponin T NT-Pro-B Natriuret Pep Total Protein Albumin Triglycerides HDL Cholesterol Urine WBC (Auto) Urine Creatinine Urine Total Protein Vancomycin Trough 05/07/19 05/07/19 05/07/19 09:35 12:17 13:45 WBC 13.4 H RBC Hgb 11.6 L Hct MCV MCH 27 L MCHC 31 L RDW 17.5 H Lymph % (Auto) [place] % (Auto) Eos % (Auto) Lymph # [place] # Eos # Seg Neutrophils % Seg Neuts % (Manual) Lymphocytes % (Manual) Monocytes % (Manual) Eosinophils % (Manual) Nucleated RBC % Seg Neutrophils # Lymphocytes # (Manual) Monocytes # (Manual) Eosinophils # (Manual) PT INR APTT POC ABG pH ABG pH POC ABG pCO2 POC ABG pO2 ABG pO2 ABG HCO3 ABG O2 Saturation ABG Base Excess ABG Hemoglobin Oxyhemoglobin Sodium Potassium Chloride Carbon Dioxide BUN Creatinine Glucose POC Glucose 130 H Uric Acid 18.0 H Calcium Phosphorus Magnesium AST ALT Total Creatine Kinase CK-MB (CK-2) Troponin T NT-Pro-B Natriuret Pep Total Protein Albumin Triglycerides HDL Cholesterol Urine WBC (Auto) Urine Creatinine Urine Total Protein Vancomycin Trough 05/07/19 05/07/19 05/08/19 17:39 22:40 05:06 WBC RBC Hgb Hct MCV MCH MCHC RDW Lymph % (Auto) [place] % (Auto) Eos % (Auto) Lymph # [place] # Eos # Seg Neutrophils % Seg Neuts % (Manual) Lymphocytes % (Manual) Monocytes % (Manual) Eosinophils % (Manual) Nucleated RBC % Seg Neutrophils # Lymphocytes # (Manual) Monocytes # (Manual) Eosinophils # (Manual) PT INR APTT POC ABG pH ABG pH POC ABG pCO2 POC ABG pO2 ABG pO2 ABG HCO3 ABG O2 Saturation ABG Base Excess ABG Hemoglobin Oxyhemoglobin Sodium Potassium Chloride Carbon Dioxide BUN Creatinine Glucose POC Glucose 116 H 148 H Uric Acid Calcium Phosphorus Magnesium AST ALT Total Creatine Kinase CK-MB (CK-2) Troponin T NT-Pro-B Natriuret Pep Total Protein Albumin Triglycerides HDL Cholesterol Urine WBC (Auto) Urine Creatinine 292.8 H Urine Total Protein 269 H Vancomycin Trough 05/08/19 05/08/19 05/08/19 05:32 11:28 13:48 WBC RBC Hgb Hct MCV MCH MCHC RDW Lymph % (Auto) [place] % (Auto) Eos % (Auto) Lymph # [place] # Eos # Seg Neutrophils % Seg Neuts % (Manual) Lymphocytes % (Manual) Monocytes % (Manual) Eosinophils % (Manual) Nucleated RBC % Seg Neutrophils # Lymphocytes # (Manual) Monocytes # (Manual) Eosinophils # (Manual) PT INR APTT POC ABG pH ABG pH POC ABG pCO2 45.4 H POC ABG pO2 64 L ABG pO2 ABG HCO3 ABG O2 Saturation ABG Base Excess ABG Hemoglobin Oxyhemoglobin Sodium Potassium Chloride Carbon Dioxide BUN 73 H Creatinine 2.7 H Glucose 127 H POC Glucose 107 H Uric Acid Calcium 7.6 L Phosphorus Magnesium AST ALT Total Creatine Kinase CK-MB (CK-2) Troponin T NT-Pro-B Natriuret Pep Total Protein Albumin Triglycerides HDL Cholesterol Urine WBC (Auto) Urine Creatinine Urine Total Protein Vancomycin Trough 05/08/19 05/09/19 05/09/19 17:48 04:50 04:53 WBC RBC 3.07 L Hgb 8.5 L D Hct 29.3 L D MCV 96 H MCH MCHC 29 L RDW 18.1 H Lymph % (Auto) [place] % (Auto) Eos % (Auto) Lymph # [place] # Eos # Seg Neutrophils % Seg Neuts % (Manual) Lymphocytes % (Manual) Monocytes % (Manual) Eosinophils % (Manual) Nucleated RBC % Seg Neutrophils # Lymphocytes # (Manual) Monocytes # (Manual) Eosinophils # (Manual) PT INR APTT POC ABG pH 7.316 L ABG pH POC ABG pCO2 66.0 H POC ABG pO2 69 L ABG pO2 ABG HCO3 ABG O2 Saturation ABG Base Excess ABG Hemoglobin Oxyhemoglobin Sodium Potassium Chloride Carbon Dioxide BUN Creatinine Glucose POC Glucose 155 H Uric Acid Calcium Phosphorus Magnesium AST ALT Total Creatine Kinase CK-MB (CK-2) Troponin T NT-Pro-B Natriuret Pep Total Protein Albumin Triglycerides HDL Cholesterol Urine WBC (Auto) Urine Creatinine Urine Total Protein Vancomycin Trough 05/09/19 05/09/19 05/09/19 05:46 07:24 12:10 WBC RBC Hgb Hct MCV MCH MCHC RDW Lymph % (Auto) [place] % (Auto) Eos % (Auto) Lymph # [place] # Eos # Seg Neutrophils % Seg Neuts % (Manual) Lymphocytes % (Manual) Monocytes % (Manual) Eosinophils % (Manual) Nucleated RBC % Seg Neutrophils # Lymphocytes # (Manual) Monocytes # (Manual) Eosinophils # (Manual) PT INR APTT POC ABG pH ABG pH POC ABG pCO2 POC ABG pO2 ABG pO2 ABG HCO3 ABG O2 Saturation ABG Base Excess ABG Hemoglobin Oxyhemoglobin Sodium Potassium Chloride Carbon Dioxide BUN 73 H Creatinine 2.4 H Glucose 153 H POC Glucose 123 H 148 H Uric Acid Calcium 8.2 L Phosphorus Magnesium AST 45 H ALT Total Creatine Kinase CK-MB (CK-2) Troponin T NT-Pro-B Natriuret Pep Total Protein 6.0 L Albumin 1.9 L Triglycerides HDL Cholesterol Urine WBC (Auto) Urine Creatinine Urine Total Protein Vancomycin Trough 05/09/19 05/09/19 05/10/19 18:23 23:26 04:52 WBC RBC Hgb Hct MCV MCH MCHC RDW Lymph % (Auto) [place] % (Auto) Eos % (Auto) Lymph # [place] # Eos # Seg Neutrophils % Seg Neuts % (Manual) Lymphocytes % (Manual) Monocytes % (Manual) Eosinophils % (Manual) Nucleated RBC % Seg Neutrophils # Lymphocytes # (Manual) Monocytes # (Manual) Eosinophils # (Manual) PT INR APTT POC ABG pH 7.305 L ABG pH POC ABG pCO2 62.6 H POC ABG pO2 ABG pO2 ABG HCO3 ABG O2 Saturation ABG Base Excess ABG Hemoglobin Oxyhemoglobin Sodium Potassium Chloride Carbon Dioxide BUN Creatinine Glucose POC Glucose 147 H 121 H Uric Acid Calcium Phosphorus Magnesium AST ALT Total Creatine Kinase CK-MB (CK-2) Troponin T NT-Pro-B Natriuret Pep Total Protein Albumin Triglycerides HDL Cholesterol Urine WBC (Auto) Urine Creatinine Urine Total Protein Vancomycin Trough 05/10/19 05/10/19 05/10/19 05:00 05:00 05:50 WBC RBC Hgb 10.3 L Hct 33.7 L MCV MCH 27 L MCHC 31 L RDW 17.0 H Lymph % (Auto) [place] % (Auto) Eos % (Auto) Lymph # [place] # Eos # Seg Neutrophils % Seg Neuts % (Manual) Lymphocytes % (Manual) Monocytes % (Manual) Eosinophils % (Manual) Nucleated RBC % Seg Neutrophils # Lymphocytes # (Manual) Monocytes # (Manual) Eosinophils # (Manual) PT INR APTT POC ABG pH ABG pH POC ABG pCO2 POC ABG pO2 ABG pO2 ABG HCO3 ABG O2 Saturation ABG Base Excess ABG Hemoglobin Oxyhemoglobin Sodium 147 H Potassium Chloride Carbon Dioxide BUN 70 H Creatinine 2.6 H Glucose 155 H POC Glucose 158 H Uric Acid Calcium 8.2 L Phosphorus Magnesium AST ALT Total Creatine Kinase CK-MB (CK-2) Troponin T NT-Pro-B Natriuret Pep Total Protein 6.1 L Albumin 2.5 L Triglycerides HDL Cholesterol Urine WBC (Auto) Urine Creatinine Urine Total Protein Vancomycin Trough 05/10/19 05/11/19 05/11/19 13:14 07:26 11:40 WBC RBC Hgb Hct MCV MCH MCHC RDW Lymph % (Auto) [place] % (Auto) Eos % (Auto) Lymph # [place] # Eos # Seg Neutrophils % Seg Neuts % (Manual) Lymphocytes % (Manual) Monocytes % (Manual) Eosinophils % (Manual) Nucleated RBC % Seg Neutrophils # Lymphocytes # (Manual) Monocytes # (Manual) Eosinophils # (Manual) PT INR APTT POC ABG pH ABG pH POC ABG pCO2 48.0 H POC ABG pO2 58 L ABG pO2 ABG HCO3 ABG O2 Saturation ABG Base Excess ABG Hemoglobin Oxyhemoglobin Sodium 147 H Potassium Chloride 107.2 H Carbon Dioxide BUN 67 H Creatinine 2.6 H Glucose 121 H POC Glucose 159 H Uric Acid Calcium Phosphorus Magnesium AST ALT Total Creatine Kinase CK-MB (CK-2) Troponin T NT-Pro-B Natriuret Pep Total Protein Albumin Triglycerides HDL Cholesterol Urine WBC (Auto) Urine Creatinine Urine Total Protein Vancomycin Trough 05/11/19 05/11/19 05/12/19 18:13 23:46 04:40 WBC RBC Hgb Hct MCV MCH MCHC RDW Lymph % (Auto) [place] % (Auto) Eos % (Auto) Lymph # [place] # Eos # Seg Neutrophils % Seg Neuts % (Manual) Lymphocytes % (Manual) Monocytes % (Manual) Eosinophils % (Manual) Nucleated RBC % Seg Neutrophils # Lymphocytes # (Manual) Monocytes # (Manual) Eosinophils # (Manual) PT INR APTT POC ABG pH ABG pH 7.264 L POC ABG pCO2 POC ABG pO2 ABG pO2 66.8 L ABG HCO3 31.0 H ABG O2 Saturation 92.0 L ABG Base Excess ABG Hemoglobin 10.3 L Oxyhemoglobin 90.1 L Sodium Potassium Chloride Carbon Dioxide BUN Creatinine Glucose POC Glucose 120 H 121 H Uric Acid Calcium Phosphorus Magnesium AST ALT Total Creatine Kinase CK-MB (CK-2) Troponin T NT-Pro-B Natriuret Pep Total Protein Albumin Triglycerides HDL Cholesterol Urine WBC (Auto) Urine Creatinine Urine Total Protein Vancomycin Trough 05/12/19 05/12/19 05/12/19 04:45 04:45 11:14 WBC RBC Hgb 10.2 L Hct 32.4 L MCV MCH MCHC 31 L RDW 17.2 H Lymph % (Auto) [place] % (Auto) Eos % (Auto) Lymph # [place] # Eos # Seg Neutrophils % Seg Neuts % (Manual) Lymphocytes % (Manual) Monocytes % (Manual) Eosinophils % (Manual) Nucleated RBC % Seg Neutrophils # Lymphocytes # (Manual) Monocytes # (Manual) Eosinophils # (Manual) PT INR APTT POC ABG pH 7.284 L ABG pH POC ABG pCO2 67.8 H POC ABG pO2 ABG pO2 ABG HCO3 ABG O2 Saturation ABG Base Excess ABG Hemoglobin Oxyhemoglobin Sodium Potassium Chloride Carbon Dioxide BUN 63 H Creatinine 2.4 H Glucose 110 H POC Glucose Uric Acid Calcium Phosphorus Magnesium AST ALT Total Creatine Kinase CK-MB (CK-2) Troponin T NT-Pro-B Natriuret Pep Total Protein Albumin Triglycerides HDL Cholesterol Urine WBC (Auto) Urine Creatinine Urine Total Protein Vancomycin Trough 05/12/19 05/12/19 05/13/19 11:44 23:11 04:30 WBC RBC Hgb Hct MCV MCH MCHC RDW Lymph % (Auto) [place] % (Auto) Eos % (Auto) Lymph # [place] # Eos # Seg Neutrophils % Seg Neuts % (Manual) Lymphocytes % (Manual) Monocytes % (Manual) Eosinophils % (Manual) Nucleated RBC % Seg Neutrophils # Lymphocytes # (Manual) Monocytes # (Manual) Eosinophils # (Manual) PT INR APTT POC ABG pH ABG pH 7.288 L POC ABG pCO2 POC ABG pO2 ABG pO2 109.7 H ABG HCO3 30.9 H ABG O2 Saturation ABG Base Excess 3.2 H ABG Hemoglobin 9.6 L Oxyhemoglobin Sodium Potassium Chloride Carbon Dioxide BUN Creatinine Glucose POC Glucose 126 H 147 H Uric Acid Calcium Phosphorus Magnesium AST ALT Total Creatine Kinase CK-MB (CK-2) Troponin T NT-Pro-B Natriuret Pep Total Protein Albumin Triglycerides HDL Cholesterol Urine WBC (Auto) Urine Creatinine Urine Total Protein Vancomycin Trough 05/13/19 05/13/19 05/14/19 06:27 11:58 04:00 WBC RBC 3.16 L Hgb 9.3 L Hct 27.9 L MCV MCH MCHC RDW 17.1 H Lymph % (Auto) [place] % (Auto) Eos % (Auto) Lymph # [place] # Eos # Seg Neutrophils % Seg Neuts % (Manual) Lymphocytes % (Manual) Monocytes % (Manual) Eosinophils % (Manual) Nucleated RBC % Seg Neutrophils # Lymphocytes # (Manual) Monocytes # (Manual) Eosinophils # (Manual) PT INR APTT POC ABG pH ABG pH POC ABG pCO2 POC ABG pO2 ABG pO2 ABG HCO3 ABG O2 Saturation ABG Base Excess ABG Hemoglobin Oxyhemoglobin Sodium Potassium Chloride Carbon Dioxide BUN Creatinine Glucose POC Glucose 113 H 130 H Uric Acid Calcium Phosphorus Magnesium AST ALT Total Creatine Kinase CK-MB (CK-2) Troponin T NT-Pro-B Natriuret Pep Total Protein Albumin Triglycerides HDL Cholesterol Urine WBC (Auto) Urine Creatinine Urine Total Protein Vancomycin Trough 05/14/19 05/14/19 05/14/19 04:00 04:34 05:32 WBC RBC Hgb Hct MCV MCH MCHC RDW Lymph % (Auto) [place] % (Auto) Eos % (Auto) Lymph # [place] # Eos # Seg Neutrophils % Seg Neuts % (Manual) Lymphocytes % (Manual) Monocytes % (Manual) Eosinophils % (Manual) Nucleated RBC % Seg Neutrophils # Lymphocytes # (Manual) Monocytes # (Manual) Eosinophils # (Manual) PT INR APTT POC ABG pH 7.328 L ABG pH POC ABG pCO2 61.7 H POC ABG pO2 ABG pO2 ABG HCO3 ABG O2 Saturation ABG Base Excess ABG Hemoglobin Oxyhemoglobin Sodium 135 L D Potassium Chloride Carbon Dioxide BUN 57 H Creatinine 2.2 H Glucose 115 H POC Glucose 115 H Uric Acid Calcium 8.1 L Phosphorus Magnesium AST ALT Total Creatine Kinase CK-MB (CK-2) Troponin T NT-Pro-B Natriuret Pep Total Protein Albumin Triglycerides HDL Cholesterol Urine WBC (Auto) Urine Creatinine Urine Total Protein Vancomycin Trough 05/14/19 05/15/19 05/15/19 12:11 05:10 05:24 WBC RBC Hgb Hct MCV MCH MCHC RDW Lymph % (Auto) [place] % (Auto) Eos % (Auto) Lymph # [place] # Eos # Seg Neutrophils % Seg Neuts % (Manual) Lymphocytes % (Manual) Monocytes % (Manual) Eosinophils % (Manual) Nucleated RBC % Seg Neutrophils # Lymphocytes # (Manual) Monocytes # (Manual) Eosinophils # (Manual) PT INR APTT POC ABG pH ABG pH 7.342 L POC ABG pCO2 POC ABG pO2 ABG pO2 79.1 L ABG HCO3 28.2 H ABG O2 Saturation ABG Base Excess ABG Hemoglobin 7.0 L Oxyhemoglobin 94.4 L Sodium Potassium Chloride Carbon Dioxide BUN Creatinine Glucose POC Glucose 110 H 116 H Uric Acid Calcium Phosphorus Magnesium AST ALT Total Creatine Kinase CK-MB (CK-2) Troponin T NT-Pro-B Natriuret Pep Total Protein Albumin Triglycerides HDL Cholesterol Urine WBC (Auto) Urine Creatinine Urine Total Protein Vancomycin Trough 05/15/19 05/15/19 05/16/19 09:00 18:12 04:50 WBC RBC Hgb Hct MCV MCH MCHC RDW Lymph % (Auto) [place] % (Auto) Eos % (Auto) Lymph # [place] # Eos # Seg Neutrophils % Seg Neuts % (Manual) Lymphocytes % (Manual) Monocytes % (Manual) Eosinophils % (Manual) Nucleated RBC % Seg Neutrophils # Lymphocytes # (Manual) Monocytes # (Manual) Eosinophils # (Manual) PT INR APTT POC ABG pH ABG pH 7.250 L POC ABG pCO2 POC ABG pO2 ABG pO2 76.4 L ABG HCO3 ABG O2 Saturation 94.6 L ABG Base Excess -3.1 L ABG Hemoglobin 9.7 L Oxyhemoglobin 92.4 L Sodium Potassium Chloride Carbon Dioxide BUN Creatinine Glucose POC Glucose 110 H Uric Acid Calcium Phosphorus Magnesium AST ALT Total Creatine Kinase CK-MB (CK-2) Troponin T NT-Pro-B Natriuret Pep Total Protein Albumin Triglycerides HDL Cholesterol Urine WBC (Auto) Urine Creatinine Urine Total Protein Vancomycin Trough 20.5 H 05/16/19 05/16/19 05/17/19 05:50 05:50 04:20 WBC RBC 3.36 L 3.44 L Hgb 9.4 L 9.3 L Hct 29.1 L 29.7 L MCV MCH 27 L MCHC 31 L RDW 17.6 H 17.6 H Lymph % (Auto) [place] % (Auto) Eos % (Auto) Lymph # [place] # Eos # Seg Neutrophils % Seg Neuts % (Manual) 77.0 H Lymphocytes % (Manual) 5.0 L Monocytes % (Manual) Eosinophils % (Manual) 10.0 H Nucleated RBC % Seg Neutrophils # Lymphocytes # (Manual) 0.5 L Monocytes # (Manual) Eosinophils # (Manual) 0.9 H PT INR APTT POC ABG pH ABG pH POC ABG pCO2 POC ABG pO2 ABG pO2 ABG HCO3 ABG O2 Saturation ABG Base Excess ABG Hemoglobin Oxyhemoglobin Sodium Potassium Chloride Carbon Dioxide BUN 83 H Creatinine 4.4 H D Glucose 118 H POC Glucose Uric Acid Calcium Phosphorus Magnesium AST ALT Total Creatine Kinase CK-MB (CK-2) Troponin T NT-Pro-B Natriuret Pep Total Protein Albumin Triglycerides HDL Cholesterol Urine WBC (Auto) Urine Creatinine Urine Total Protein Vancomycin Trough 05/17/19 05/17/19 05/18/19 04:30 Unknown 01:50 WBC RBC 3.49 L Hgb 9.4 L Hct 30.0 L MCV MCH 27 L MCHC 31 L RDW 17.8 H Lymph % (Auto) 7.9 L [place] % (Auto) 15.4 H Eos % (Auto) 6.3 H Lymph # 0.7 L [place] # 1.4 H Eos # 0.6 H Seg Neutrophils % 70.2 H Seg Neuts % (Manual) Lymphocytes % (Manual) Monocytes % (Manual) Eosinophils % (Manual) Nucleated RBC % Seg Neutrophils # Lymphocytes # (Manual) Monocytes # (Manual) Eosinophils # (Manual) PT INR APTT POC ABG pH ABG pH 7.272 L POC ABG pCO2 POC ABG pO2 ABG pO2 75.7 L ABG HCO3 ABG O2 Saturation 93.8 L ABG Base Excess -3.0 L ABG Hemoglobin 7.8 L Oxyhemoglobin 91.6 L Sodium Potassium 5.2 H Chloride Carbon Dioxide BUN 96 H Creatinine 5.7 H Glucose 112 H POC Glucose Uric Acid Calcium Phosphorus Magnesium AST ALT Total Creatine Kinase CK-MB (CK-2) Troponin T NT-Pro-B Natriuret Pep Total Protein Albumin Triglycerides 173 H HDL Cholesterol Urine WBC (Auto) Urine Creatinine Urine Total Protein Vancomycin Trough 05/18/19 05/18/19 05/18/19 01:50 04:41 05:24 WBC RBC Hgb Hct MCV MCH MCHC RDW Lymph % (Auto) [place] % (Auto) Eos % (Auto) Lymph # [place] # Eos # Seg Neutrophils % Seg Neuts % (Manual) Lymphocytes % (Manual) Monocytes % (Manual) Eosinophils % (Manual) Nucleated RBC % Seg Neutrophils # Lymphocytes # (Manual) Monocytes # (Manual) Eosinophils # (Manual) PT INR APTT POC ABG pH 7.260 L ABG pH POC ABG pCO2 54.9 H POC ABG pO2 ABG pO2 ABG HCO3 ABG O2 Saturation ABG Base Excess ABG Hemoglobin Oxyhemoglobin Sodium Potassium 5.6 H Chloride Carbon Dioxide BUN 104 H Creatinine 6.6 H Glucose 107 H POC Glucose 106 H Uric Acid Calcium Phosphorus Magnesium AST ALT Total Creatine Kinase CK-MB (CK-2) Troponin T NT-Pro-B Natriuret Pep Total Protein Albumin Triglycerides HDL Cholesterol Urine WBC (Auto) Urine Creatinine Urine Total Protein Vancomycin Trough 05/18/19 05/18/19 05/19/19 11:34 23:26 04:06 WBC RBC 3.22 L Hgb 8.8 L Hct 27.3 L MCV MCH 27 L MCHC RDW 17.5 H Lymph % (Auto) [place] % (Auto) Eos % (Auto) Lymph # [place] # Eos # Seg Neutrophils % Seg Neuts % (Manual) 74.0 H Lymphocytes % (Manual) 4.0 L Monocytes % (Manual) 11.0 H Eosinophils % (Manual) 7.0 H Nucleated RBC % 1.0 H Seg Neutrophils # Lymphocytes # (Manual) 0.3 L Monocytes # (Manual) 0.9 H Eosinophils # (Manual) 0.6 H PT INR APTT POC ABG pH ABG pH POC ABG pCO2 POC ABG pO2 ABG pO2 ABG HCO3 ABG O2 Saturation ABG Base Excess ABG Hemoglobin Oxyhemoglobin Sodium Potassium Chloride Carbon Dioxide BUN Creatinine Glucose POC Glucose 152 H 112 H Uric Acid Calcium Phosphorus Magnesium AST ALT Total Creatine Kinase CK-MB (CK-2) Troponin T NT-Pro-B Natriuret Pep Total Protein Albumin Triglycerides HDL Cholesterol Urine WBC (Auto) Urine Creatinine Urine Total Protein Vancomycin Trough 05/19/19 05/19/19 05/20/19 04:06 06:00 04:00 WBC RBC 3.40 L Hgb 9.2 L Hct 28.6 L MCV MCH 27 L MCHC RDW 17.6 H Lymph % (Auto) [place] % (Auto) Eos % (Auto) Lymph # [place] # Eos # Seg Neutrophils % Seg Neuts % (Manual) Lymphocytes % (Manual) 11.0 L Monocytes % (Manual) Eosinophils % (Manual) 14.0 H Nucleated RBC % Seg Neutrophils # Lymphocytes # (Manual) 1.1 L Monocytes # (Manual) Eosinophils # (Manual) 1.4 H PT INR APTT POC ABG pH ABG pH 7.315 L POC ABG pCO2 POC ABG pO2 ABG pO2 ABG HCO3 ABG O2 Saturation ABG Base Excess ABG Hemoglobin 6.7 L Oxyhemoglobin 94.1 L Sodium Potassium 5.2 H Chloride Carbon Dioxide 21 L BUN 110 H Creatinine 7.2 H Glucose POC Glucose Uric Acid Calcium 8.3 L Phosphorus Magnesium AST ALT Total Creatine Kinase CK-MB (CK-2) Troponin T NT-Pro-B Natriuret Pep Total Protein Albumin Triglycerides HDL Cholesterol Urine WBC (Auto) Urine Creatinine Urine Total Protein Vancomycin Trough 05/20/19 05/20/19 05/20/19 04:00 05:48 12:00 WBC RBC Hgb Hct MCV MCH MCHC RDW Lymph % (Auto) [place] % (Auto) Eos % (Auto) Lymph # [place] # Eos # Seg Neutrophils % Seg Neuts % (Manual) Lymphocytes % (Manual) Monocytes % (Manual) Eosinophils % (Manual) Nucleated RBC % Seg Neutrophils # Lymphocytes # (Manual) Monocytes # (Manual) Eosinophils # (Manual) PT INR APTT POC ABG pH ABG pH 7.281 L POC ABG pCO2 POC ABG pO2 ABG pO2 78.7 L ABG HCO3 ABG O2 Saturation 94.5 L ABG Base Excess -3.0 L ABG Hemoglobin 9.9 L Oxyhemoglobin 92.5 L Sodium 136 L Potassium 5.7 H Chloride 96.3 L Carbon Dioxide BUN 125 H Creatinine 8.3 H Glucose 106 H POC Glucose Uric Acid Calcium Phosphorus Magnesium AST ALT Total Creatine Kinase CK-MB (CK-2) Troponin T NT-Pro-B Natriuret Pep Total Protein Albumin Triglycerides HDL Cholesterol Urine WBC (Auto) 26.0 H Urine Creatinine Urine Total Protein Vancomycin Trough 05/21/19 05/21/19 05/21/19 04:33 05:20 Unknown WBC RBC 3.38 L Hgb 9.1 L Hct 28.5 L MCV MCH 27 L MCHC RDW 17.4 H Lymph % (Auto) [place] % (Auto) Eos % (Auto) Lymph # [place] # Eos # Seg Neutrophils % Seg Neuts % (Manual) 71.0 H Lymphocytes % (Manual) 1.0 L Monocytes % (Manual) 11.0 H Eosinophils % (Manual) 6.0 H Nucleated RBC % Seg Neutrophils # Lymphocytes # (Manual) 0.1 L Monocytes # (Manual) 1.0 H Eosinophils # (Manual) 0.6 H PT INR APTT POC ABG pH 7.315 L ABG pH POC ABG pCO2 57.8 H POC ABG pO2 68 L ABG pO2 ABG HCO3 ABG O2 Saturation ABG Base Excess ABG Hemoglobin Oxyhemoglobin Sodium Potassium Chloride 96.3 L Carbon Dioxide BUN 102 H Creatinine 7.0 H Glucose 103 H POC Glucose Uric Acid Calcium Phosphorus Magnesium AST ALT Total Creatine Kinase CK-MB (CK-2) Troponin T NT-Pro-B Natriuret Pep Total Protein Albumin Triglycerides HDL Cholesterol Urine WBC (Auto) Urine Creatinine Urine Total Protein Vancomycin Trough Chest x-ray: report reviewed, image reviewed
--- NOTE | 2019-05-21 18:01 | Progress Note ---
Assessment and Plan - Patient Problems (1) Acute kidney injury Current Visit: Yes Status: Acute Plan to address problem: Acute kidney injury worsening Baseline creatinine unknown Kidney function is worsening Chest x-ray with concern for Bibasilar haziness? Atelectasis Renal function worsened with diuresis ? Volume depletion Received bolus of saline received saline infusion at 125cc/hr creatinine improved from 3.5 to 3.2 to 2.4 mg/dl recent worsening Elevated vancomycin and subsquent acute tubular injury continue hemodialysis. Repeat BMP (2) Hypercapnic respiratory failure Current Visit: Yes Status: Acute Qualifiers: Chronicity: acute on chronic Qualified Code(s): J96.22 - Acute and chronic respiratory failure with hypercapnia Plan to address problem: Acute on chronic respiratory failure with hypercapnia Patient is currently intubated chest x-ray with some concern for bibasilar h aziness Given morbid obesity. Obesity hypoventilation Wean oxygen as tolerated (3) Anemia Current Visit: Yes Status: Acute Plan to address problem: Mild anemia Monitor CBC (4) Fever Current Visit: Yes Status: Acute Plan to address problem: Fever workup for infectious causes Infectious disease is following (5) Hyperkalemia Current Visit: Yes Status: Acute Plan to address problem: hyperkalemia ;resolved. Will initiate dialysis. Subjective Principal diagnosis: HF; acute hypoxemic resp failure, SIRS, CARLA Interval history: 34-year-old gentleman with morbid obesity, found with cyanosis difficulty with breathing and brought to the emergency room he required intubation review of systems unobtainable patient remains intubated and FiO2 100% he has had worsening renal function nephrology consulted for this. He was subsequently found to have a fever infectious diseases is followingshe initially related improvement. Acute kidney injury, subsequent worsening in the setting of elevated vancomycin levels Patient seen to be remains intubated and sedated Minimal urine output Has lower extremity edema Objective - Vital Signs Vital signs: Vital Signs - 12hr 05/21/19 05/21/19 05/21/19 06:00 06:15 06:20 Temperature Pulse Rate 110 H 104 H 103 H Pulse Rate [ From Monitor] Respiratory 18 22 Rate Blood Pressure 108/57 112/38 112/38 O2 Sat by Pulse 91 91 Oximetry 05/21/19 05/21/19 05/21/19 06:30 06:45 07:00 Temperature Pulse Rate 102 H 101 H 99 H Pulse Rate [ From Monitor] Respiratory 11 L 15 19 Rate Blood Pressure 108/37 111/40 113/37 O2 Sat by Pulse 94 94 94 Oximetry 05/21/19 05/21/19 05/21/19 07:15 07:30 07:45 Temperature Pulse Rate 99 H 103 H 100 H Pulse Rate [ From Monitor] Respiratory 18 18 19 Rate Blood Pressure 114/40 120/58 110/40 O2 Sat by Pulse 95 96 96 Oximetry 05/21/19 05/21/19 05/21/19 08:00 08:15 08:23 Temperature 99.8 F H Pulse Rate 100 H 96 H 100 H Pulse Rate [ 97 H From Monitor] Respiratory 17 14 Rate Blood Pressure 113/39 112/39 112/39 O2 Sat by Pulse 96 97 95 Oximetry 05/21/19 05/21/19 05/21/19 08:30 08:45 09:00 Temperature Pulse Rate 95 H 97 H 102 H Pulse Rate [ From Monitor] Respiratory 20 21 18 Rate Blood Pressure 114/36 107/40 122/57 O2 Sat by Pulse 96 97 97 Oximetry 05/21/19 05/21/19 05/21/19 09:15 09:30 09:45 Temperature Pulse Rate 105 H 102 H 106 H Pulse Rate [ From Monitor] Respiratory 25 H 19 22 Rate Blood Pressure 126/47 119/41 122/56 O2 Sat by Pulse 97 96 97 Oximetry 05/21/19 05/21/19 05/21/19 10:00 10:15 10:30 Temperature Pulse Rate 99 H 99 H 97 H Pulse Rate [ From Monitor] Respiratory 21 22 24 Rate Blood Pressure 115/40 115/44 115/41 O2 Sat by Pulse 97 97 96 Oximetry 05/21/19 05/21/19 05/21/19 10:45 11:00 11:15 Temperature Pulse Rate 97 H 104 H 104 H Pulse Rate [ From Monitor] Respiratory 26 H 18 20 Rate Blood Pressure 117/42 123/61 121/53 O2 Sat by Pulse 97 97 95 Oximetry 05/21/19 05/21/19 05/21/19 11:30 11:45 12:00 Temperature 100.6 F H Pulse Rate 97 H 94 H 95 H Pulse Rate [ 95 H From Monitor] Respiratory 13 12 25 H Rate Blood Pressure 111/38 109/38 102/43 O2 Sat by Pulse 96 97 97 Oximetry 05/21/19 05/21/19 05/21/19 12:15 12:30 12:45 Temperature Pulse Rate 93 H 92 H 90 Pulse Rate [ From Monitor] Respiratory 19 25 H 22 Rate Blood Pressure 102/38 102/42 99/43 O2 Sat by Pulse 98 98 99 Oximetry 05/21/19 05/21/19 05/21/19 13:00 13:10 13:15 Temperature Pulse Rate 89 97 H 97 H Pulse Rate [ From Monitor] Respiratory 25 H 26 H Rate Blood Pressure 104/43 104/43 116/61 O2 Sat by Pulse 99 97 Oximetry 05/21/19 05/21/19 05/21/19 13:30 13:45 14:00 Temperature Pulse Rate 102 H 103 H 103 H Pulse Rate [ From Monitor] Respiratory 22 26 H 25 H Rate Blood Pressure 117/52 112/50 115/46 O2 Sat by Pulse 96 96 97 Oximetry 05/21/19 05/21/19 05/21/19 14:15 14:30 14:45 Temperature Pulse Rate 104 H 101 H 100 H Pulse Rate [ From Monitor] Respiratory 19 25 H 25 H Rate Blood Pressure 119/51 119/51 116/49 O2 Sat by Pulse 96 96 97 Oximetry 05/21/19 05/21/19 05/21/19 15:00 15:15 15:30 Temperature Pulse Rate 100 H 100 H 103 H Pulse Rate [ From Monitor] Respiratory 25 H 24 26 H Rate Blood Pressure 111/41 115/45 116/50 O2 Sat by Pulse 97 96 95 Oximetry 05/21/19 05/21/19 05/21/19 15:45 16:00 16:15 Temperature 100.5 F H Pulse Rate 106 H 105 H 104 H Pulse Rate [ From Monitor] Respiratory 23 18 24 Rate Blood Pressure 131/69 123/50 126/46 O2 Sat by Pulse 96 95 96 Oximetry 05/21/19 05/21/19 05/21/19 16:27 16:30 16:45 Temperature Pulse Rate 104 H 103 H 103 H Pulse Rate [ From Monitor] Respiratory 19 19 Rate Blood Pressure 126/46 120/55 120/51 O2 Sat by Pulse 97 95 96 Oximetry 05/21/19 05/21/19 05/21/19 17:00 17:15 17:30 Temperature Pulse Rate 101 H 98 H 95 H Pulse Rate [ From Monitor] Respiratory 18 14 14 Rate Blood Pressure 120/52 109/39 110/42 O2 Sat by Pulse 96 96 97 Oximetry - General Appearance General appearance: well-developed, well-nourished EENT: ATNC, PERRL, mucous membranes moist Neck: no JVD Respiratory: Present: Clear to Ascultation Cardiology: regular, S1S2 Gastrointestinal: normal, normoactive bowel sounds Integumentary: no rash Neurologic: alert and oriented x3 Psychiatric: mood/affect appropriate - Lab 05/21/19 Unknown 05/21/19 05:20 Most recent lab results ABG pH 7.281 pH Units (7.350-7.450) L 05/20/19 05:48 ABG pCO2 52.0 mm Hg 05/20/19 05:48 ABG pO2 78.7 mm Hg (80.0-90.0) L 05/20/19 05:48 ABG HCO3 24.0 mmol/L (20.0-26.0) 05/20/19 05:48 ABG O2 Saturation 94.5 % (95.0-99.0) L 05/20/19 05:48 Calcium 8.5 mg/dL (8.4-10.2) 05/21/19 05:20 Phosphorus 4.90 mg/dL (2.5-4.5) H 05/02/19 00:06 Magnesium 2.30 mg/dL (1.7-2.3) 05/02/19 00:06 Urine Creatinine 292.8 mg/dL (0.1-20.0) H 05/07/19 22:40 Urine Sodium 11 mmol/L 05/07/19 22:40 Urine Total Protein 269 mg/dL (5-11.8) H 05/07/19 22:40 - Imaging Chest x-ray: image reviewed (reviewed chest x-ray with patchy opacities) Medications & Allergies - Medications Allergies/Adverse Reactions: Allergies No Known Allergies Allergy (Verified 05/01/19 20:27) Home Medications: Home Medications Medication Instructions Recorded Confirmed Last Taken Type No Known Home Medications [No 05/03/19 05/03/19 Unknown History Reported Home Medications] Active Medications: Generic Name Dose Route Start Last Admin Trade Name Freq PRN Reason Stop Dose Admin Acetaminophen 650 mg 05/01/19 22:46 05/21/19 16:48 Tylenol PO 650 mg Q4H PRN Administration Pain MILD(1-3)/Fever >100.5/FREEMAN Albumin Human 25 gm 05/19/19 10:47 Alburx 25% (Albumin) IV ARIANE PRN Hypotension Lipase/Protease/Amylase 1 each 05/14/19 15:01 Pancremannie Fletcher 10,500 Unit FEEDTUBE PRN PRN For Clogged Feeding Tube Dextrose 50 gm 05/01/19 20:24 D50w (25gm) Vial IV Q30MIN PRN Hypoglycemia Protocol Enoxaparin Sodium 30 mg 05/16/19 10:00 05/21/19 09:43 Enoxaparin SUB-Q 30 mg QDAY VICKEY Administration Epoetin Hugo 10,000 unit 05/19/19 10:47 Procrit IV ARIANE PRN hemodialysis Famotidine 20 mg 05/16/19 10:00 05/21/19 09:44 Pepcid PO 20 mg DAILY VICKEY Administration Hydralazine HCl 20 mg 05/13/19 08:09 05/14/19 18:09 Apresoline IV 20 mg Q4HR PRN Administration SBP >/=160 Hydrophilic Ointment 1 applic 05/01/19 21:14 Vaseline Lip Therapy TP Q2HR PRN Dry Lips Fentanyl Citrate 2,000 mcg in 100 mls @ 10.195 mls/hr 05/01/19 22:00 05/21/19 17:10 Fentanyl Drip Premix IV 2 mcg/kg/hr TITR VICKEY 20.39 mls/hr Administration Protocol 1 MCG/KG/HR Propofol 1,000 mg in 100 mls @ 7.011 mls/hr 05/03/19 04:00 05/21/19 15:37 Diprivan 10 Mg/Ml IV 10 mcg/kg/min TITR VICKEY 14.022 mls/hr Administration Protocol 5 MCG/KG/MIN Norepinephrine 4 mg in 250 mls @ 7.5 mls/hr 05/03/19 18:00 05/20/19 08:04 Levophed Drip 4 Mg/Ns 250 Ml IV 0 mcg/min TITR VICKEY 0 mls/hr Titration Protocol 2 MCG/MIN Sodium Chloride 500 mls @ 10 mls/hr 05/06/19 15:00 Nacl 0.9% 500 Ml IV DIRECT VICKEY Metronidazole 500 mg in 100 mls @ 100 mls/hr 05/11/19 14:00 05/21/19 13:14 Flagyl 500 Mg/100 Ml IV 100 mls/hr Q8HR VICKEY Administration Protocol Nicardipine HCl 50 mg/ Sodium 250 mls @ 25 mls/hr 05/13/19 10:00 05/14/19 23:12 Chloride IV 0 mg/hr TITR VICKEY 0 mls/hr Titration Protocol 5 MG/HR Cefepime HCl 2 gm in 100 mls @ 200 mls/hr 05/18/19 11:00 05/21/19 09:42 Cefepime/Ns 2 Gm/100 Ml IV 200 mls/hr Q24HR VICKEY Administration Protocol Sodium Chloride 100 mls @ 999 mls/hr 05/19/19 10:47 05/20/19 08:14 Nacl 0.9% IV 999 mls/hr ARIANE PRN Administration Hypotension Labetalol HCl 100 mg 05/14/19 14:00 05/21/19 13:10 Labetalol PO Not Given Q8HR VICKEY Levetiracetam 750 mg 05/13/19 10:00 05/21/19 09:43 Keppra PO 750 mg BID VICKEY Administration Lorazepam 2 mg 05/06/19 06:22 05/10/19 16:17 Ativan IV 2 mg Q4H PRN Administration Seizures/AGITATION Multi-Ingred Cream/Lotion/Oil/Oint 1 applic 05/01/19 21:14 Artificial Tears Ophth Oint OU Q4HR PRN Dry Eye(s) Ondansetron HCl 4 mg 05/01/19 22:46 Zofran IV Q8H PRN Nausea And Vomiting Scopolamine 1 each 05/20/19 12:00 05/20/19 12:52 Transderm-Scop TD 1 each Q72HR VICKEY Administration Simple Syrup 15 ml 05/14/19 15:01 Simple Syrup FEEDTUBE PRN PRN Hypoglycemia Simple Syrup 30 ml 05/14/19 15:01 Simple Syrup FEEDTUBE PRN PRN Hypoglycemia Sodium Bicarbonate 325 mg 05/14/19 15:01 Sodium Bicarbonate FEEDTUBE PRN PRN For Clogged Feeding Tube Sodium Chloride 10 ml 05/02/19 10:00 05/20/19 21:25 Sodium Chloride Flush Syringe 10 Ml IV 10 ml BID VICKEY Administration Sodium Chloride 10 ml 05/01/19 22:46 05/05/19 02:28 Sodium Chloride Flush Syringe 10 Ml IV 10 ml PRN PRN Administration LINE FLUSH
[2019-05-22] MEDS: fentaNYL DRIP Premix 2,000 MCG/100 ML BAG IV SCH ×6 (01:03→22:00)
[2019-05-22] MEDS: metroNIDAZOLE/NS 500 MG/100 ML 500 MG/100 ML BAG IV SCH ×3 (05:21→22:03)
[2019-05-22 06:57] LABS: Hemoglobin 8.6 gm/dl (11.8-15.2); Mean Corpuscular HGB Conc 32 % (32-34); Mean Corpuscular Volume 84 fl (84-94); Platelet Count 347 K/mm3 (140-440); Red Blood Count 3.22 M/mm3 (3.65-5.03); Red Cell Distribution Width 17.5 % (13.2-15.2)
[2019-05-22] MEDS ORDERED: BUMETANIDE 1 MG/4 ML INJ IV ONE ×2 (07:02→16:30)
[2019-05-22 07:07] LABS: Calcium 8.2 mg/dL (8.4-10.2)
[2019-05-22 10:17] LABS: Eosinophils # (Auto) 0.9 K/mm3 (0.0-0.4); Eosinophils % (Auto) 10.8 % (0.0-4.3); Monocytes # (Auto) 1.3 K/mm3 (0.0-0.8); Monocytes % (Auto) 16.2 % (0.0-7.3)
[2019-05-22] MEDS: CEFEPIME/NS 2 GM/100 ML 2 GM/100 ML BAG IV SCH (10:50)
[2019-05-22] MEDS: levETIRAcetam 500 MG/5 ML ORAL LIQD PO SCH (10:50)
[2019-05-22] MEDS: ENOXAPARIN 30 MG/0.3 ML INJ SUB-Q SCH (10:50)
[2019-05-22] MEDS: FAMOTIDINE 20 MG TAB PO SCH (10:52)
[2019-05-22 11:23] LABS: Band Neutrophils # (Manual) 0.3 K/mm3; Basophils % (Manual) 0 % (0.0-1.8); Total Cells Counted 100
[2019-05-22 11:26] LABS: Stomatocytes Few
[2019-05-22 11:27] LABS: Hypochromasia Few; Ovalocytes Few; Schistocytes Few
[2019-05-22 11:28] LABS: Platelet Estimate Consistent w Auto
--- NOTE | 2019-05-22 14:46 | Progress Note ---
Assessment and Plan Imp: 1. Acute respiratory failure, hypoxia 2. A/C respiratory failure, hypercapnea 3. [place]/OHS/Morbid obesity 4. CARLA 5. Pulm HTN 6. Sepsis -> ? Pneumonia, ? Meningitis 7. Seizures Rec: 1. Wean PEEP to as tolerated, with goal sats 88% or >; FiO2 currently at 50% 2. Sedation same 3. May need trach though poor oxygenation/high PEEP currently precludes 4. Recommend aggressive volume removal with HD to try to help with oxygenation and ventilator weaning; stop IVFs as do not believe he is dry 5. ABX per ID; fevers better; cultures negative; unsure if he would fit in the CT scanner if CT imaging is desired 6. Keppra BID 7. TFs as tolerated; DVT and GI PPx 8. Still with poor prognosis; patient w/ marginal improvement since admission 9. CCT 31 minutes Subjective Date of service: 05/22/19 Principal diagnosis: HF; acute hypoxemic resp failure, SIRS, CARLA Interval history: Patient is sedated, intubated remain on mechanical ventilator Objective Vital Signs - 12hr 05/22/19 05/22/19 05/22/19 03:00 03:15 03:30 Temperature Pulse Rate 94 H 98 H 101 H Pulse Rate [ From Monitor] Respiratory 12 11 L 11 L Rate Blood Pressure 104/39 117/55 114/45 O2 Sat by Pulse 95 93 95 Oximetry 05/22/19 05/22/19 05/22/19 03:43 03:45 04:00 Temperature 100.1 F H Pulse Rate 103 H 107 H 104 H Pulse Rate [ 104 H From Monitor] Respiratory 21 24 Rate Blood Pressure 114/45 113/52 110/45 O2 Sat by Pulse 96 94 94 Oximetry 05/22/19 05/22/19 05/22/19 04:15 04:30 04:45 Temperature Pulse Rate 102 H 100 H 96 H Pulse Rate [ From Monitor] Respiratory 11 L 12 7 L Rate Blood Pressure 113/37 108/36 102/31 O2 Sat by Pulse 96 95 95 Oximetry 05/22/19 05/22/19 05/22/19 05:00 05:15 05:30 Temperature Pulse Rate 93 H 104 H 108 H Pulse Rate [ From Monitor] Respiratory 0 L 19 19 Rate Blood Pressure 107/39 122/62 122/59 O2 Sat by Pulse 97 95 94 Oximetry 12/05/22/19 05/22/19 05:45 06:00 06:15 Temperature Pulse Rate 108 H 107 H Pulse Rate [ From Monitor] Respiratory 22 16 Rate Blood Pressure 121/54 114/43 117/55 O2 Sat by Pulse 94 95 Oximetry 05/22/19 05/22/19 05/22/19 06:30 06:45 07:00 Temperature Pulse Rate 109 H 110 H 109 H Pulse Rate [ From Monitor] Respiratory 29 H 26 H 22 Rate Blood Pressure 121/61 125/54 137/68 O2 Sat by Pulse 93 93 91 Oximetry 05/22/19 05/22/19 05/22/19 07:15 07:30 07:45 Temperature Pulse Rate 110 H 107 H 109 H Pulse Rate [ From Monitor] Respiratory 32 H 25 H 29 H Rate Blood Pressure 139/61 129/63 138/67 O2 Sat by Pulse 89 90 90 Oximetry 05/22/19 05/22/19 05/22/19 08:00 08:15 08:30 Temperature 100.4 F H Pulse Rate 109 H 109 H 106 H Pulse Rate [ From Monitor] Respiratory 21 28 H 17 Rate Blood Pressure 134/65 131/62 127/58 O2 Sat by Pulse 92 89 95 Oximetry 05/22/19 05/22/19 05/22/19 08:45 09:00 09:15 Temperature Pulse Rate 109 H 109 H 109 H Pulse Rate [ From Monitor] Respiratory 24 26 H 26 H Rate Blood Pressure 129/62 133/65 127/64 O2 Sat by Pulse 93 93 92 Oximetry 05/22/19 05/22/19 05/22/19 09:30 09:45 10:00 Temperature Pulse Rate 112 H 113 H 114 H Pulse Rate [ From Monitor] Respiratory 31 H 36 H 21 Rate Blood Pressure 125/56 129/57 135/69 O2 Sat by Pulse 91 94 93 Oximetry 05/22/19 05/22/19 05/22/19 10:15 10:30 10:45 Temperature Pulse Rate 113 H 108 H 110 H Pulse Rate [ From Monitor] Respiratory 31 H 30 H 28 H Rate Blood Pressure 127/59 119/57 118/55 O2 Sat by Pulse 100 93 Oximetry 05/22/19 05/22/19 05/22/19 11:00 11:15 11:30 Temperature Pulse Rate 110 H 104 H 107 H Pulse Rate [ From Monitor] Respiratory 28 H 25 H 22 Rate Blood Pressure 124/52 122/53 126/66 O2 Sat by Pulse 93 95 96 Oximetry 05/22/19 05/22/19 05/22/19 11:45 12:00 12:15 Temperature Pulse Rate 107 H 105 H 105 H Pulse Rate [ From Monitor] Respiratory 18 21 15 Rate Blood Pressure 124/61 114/57 119/58 O2 Sat by Pulse 96 95 96 Oximetry 05/22/19 05/22/19 05/22/19 12:30 12:31 12:45 Temperature Pulse Rate 102 H 119 H 108 H Pulse Rate [ From Monitor] Respiratory 19 26 H Rate Blood Pressure 115/50 139/61 128/60 O2 Sat by Pulse 97 96 92 Oximetry Constitutional: other (morbidly obese male, sedated on vent, orally intubated) Eyes: non-icteric ENT: oropharynx moist Neck: other (extremely large in circumference) Effort: normal Ascultation: Bilateral: diminished breath sounds (secondary to body habitus) Cardiovascular: regular rate and rhythm (no mrg) Gastrointestinal: normoactive bowel sounds, non-tender, other (obese) Integumentary: other (L hand is wrapped) Extremities: no cyanosis, pink and warm, other (1+ generalized edema) Neurologic: unable to assess Psychiatric: other (unable to assess) CBC and BMP: 05/22/19 06:25 05/22/19 06:25 ABG, PT/INR, D-dimer: ABG POC ABG pH 7.313 (7.35-7.45) L 05/22/19 03:54 ABG pH 7.281 pH Units (7.350-7.450) L 05/20/19 05:48 POC ABG pCO2 55.0 (35-45) H 05/22/19 03:54 ABG pCO2 52.0 mm Hg 05/20/19 05:48 POC ABG pO2 87 (80-105) 05/22/19 03:54 ABG pO2 78.7 mm Hg (80.0-90.0) L 05/20/19 05:48 POC ABG HCO3 27.9 (22-26 mml/L) 05/22/19 03:54 POC ABG Total CO2 30 (23-27mmol/L) 05/22/19 03:54 POC ABG O2 Sat 95 05/22/19 03:54 ABG O2 Saturation 94.5 % (95.0-99.0) L 05/20/19 05:48 PT/INR, D-dimer PT 15.4 Sec. (12.2-14.9) H 05/01/19 Unknown INR 1.23 (0.87-1.13) H 05/01/19 Unknown Abnormal lab findings: Abnormal Labs 05/01/19 05/01/19 05/01/19 17:50 19:26 22:36 WBC RBC Hgb Hct MCV MCH MCHC RDW Lymph % (Auto) [place] % (Auto) Eos % (Auto) Lymph # [place] # Eos # Seg Neutrophils % Seg Neuts % (Manual) Lymphocytes % (Manual) Monocytes % (Manual) Eosinophils % (Manual) Nucleated RBC % Seg Neutrophils # Lymphocytes # (Manual) Monocytes # (Manual) Eosinophils # (Manual) PT INR APTT POC ABG pH 7.272 L 7.331 L ABG pH POC ABG pCO2 52.8 H POC ABG pO2 ABG pO2 ABG HCO3 ABG O2 Saturation ABG Base Excess ABG Hemoglobin Oxyhemoglobin Sodium 136 L Potassium 6.5 H* Chloride 97.2 L Carbon Dioxide BUN 60 H Creatinine Glucose 113 H POC Glucose Uric Acid Calcium Phosphorus Magnesium 2.40 H AST 139 H ALT 154 H Total Creatine Kinase CK-MB (CK-2) Troponin T NT-Pro-B Natriuret Pep Total Protein Albumin 3.8 L Triglycerides HDL Cholesterol Urine WBC (Auto) Urine Creatinine Urine Total Protein Vancomycin Trough 05/01/19 05/01/19 05/01/19 Unknown Unknown Unknown WBC 16.1 H RBC Hgb Hct MCV MCH MCHC RDW 17.2 H Lymph % (Auto) [place] % (Auto) 9.6 H Eos % (Auto) Lymph # [place] # 1.5 H Eos # Seg Neutrophils % 73.0 H Seg Neuts % (Manual) Lymphocytes % (Manual) Monocytes % (Manual) Eosinophils % (Manual) Nucleated RBC % Seg Neutrophils # 11.7 H Lymphocytes # (Manual) Monocytes # (Manual) Eosinophils # (Manual) PT 15.4 H INR 1.23 H APTT 22.7 L POC ABG pH ABG pH POC ABG pCO2 POC ABG pO2 ABG pO2 ABG HCO3 ABG O2 Saturation ABG Base Excess ABG Hemoglobin Oxyhemoglobin Sodium Potassium Chloride Carbon Dioxide BUN Creatinine Glucose POC Glucose Uric Acid Calcium Phosphorus Magnesium AST ALT Total Creatine Kinase CK-MB (CK-2) Troponin T NT-Pro-B Natriuret Pep 6831 H Total Protein Albumin Triglycerides HDL Cholesterol Urine WBC (Auto) Urine Creatinine Urine Total Protein Vancomycin Trough 05/01/19 05/02/19 05/02/19 Unknown 00:06 00:06 WBC RBC Hgb Hct MCV MCH MCHC RDW Lymph % (Auto) [place] % (Auto) Eos % (Auto) Lymph # [place] # Eos # Seg Neutrophils % Seg Neuts % (Manual) Lymphocytes % (Manual) Monocytes % (Manual) Eosinophils % (Manual) Nucleated RBC % Seg Neutrophils # Lymphocytes # (Manual) Monocytes # (Manual) Eosinophils # (Manual) PT INR APTT POC ABG pH ABG pH POC ABG pCO2 POC ABG pO2 ABG pO2 ABG HCO3 ABG O2 Saturation ABG Base Excess ABG Hemoglobin Oxyhemoglobin Sodium Potassium Chloride Carbon Dioxide BUN Creatinine Glucose POC Glucose Uric Acid Calcium Phosphorus 4.90 H Magnesium AST ALT Total Creatine Kinase 226 H CK-MB (CK-2) 5.7 H Troponin T 0.044 H NT-Pro-B Natriuret Pep Total Protein Albumin Triglycerides 182 H HDL Cholesterol 18 L Urine WBC (Auto) Urine Creatinine Urine Total Protein Vancomycin Trough 05/02/19 05/02/19 05/02/19 02:08 04:40 04:41 WBC 17.6 H RBC Hgb Hct MCV MCH 27 L MCHC RDW 17.4 H Lymph % (Auto) 10.2 L [place] % (Auto) 11.0 H Eos % (Auto) Lymph # [place] # 1.9 H Eos # Seg Neutrophils % 78.0 H Seg Neuts % (Manual) Lymphocytes % (Manual) Monocytes % (Manual) Eosinophils % (Manual) Nucleated RBC % Seg Neutrophils # 13.8 H Lymphocytes # (Manual) Monocytes # (Manual) Eosinophils # (Manual) PT INR APTT POC ABG pH ABG pH POC ABG pCO2 46.8 H POC ABG pO2 63 L ABG pO2 ABG HCO3 ABG O2 Saturation ABG Base Excess ABG Hemoglobin Oxyhemoglobin Sodium Potassium Chloride 96.3 L Carbon Dioxide BUN 63 H Creatinine 1.7 H Glucose POC Glucose Uric Acid Calcium Phosphorus Magnesium AST ALT Total Creatine Kinase CK-MB (CK-2) Troponin T NT-Pro-B Natriuret Pep Total Protein Albumin Triglycerides HDL Cholesterol Urine WBC (Auto) Urine Creatinine Urine Total Protein Vancomycin Trough 05/02/19 05/02/19 05/02/19 04:41 04:41 16:05 WBC RBC Hgb Hct MCV MCH MCHC RDW Lymph % (Auto) [place] % (Auto) Eos % (Auto) Lymph # [place] # Eos # Seg Neutrophils % Seg Neuts % (Manual) Lymphocytes % (Manual) Monocytes % (Manual) Eosinophils % (Manual) Nucleated RBC % Seg Neutrophils # Lymphocytes # (Manual) Monocytes # (Manual) Eosinophils # (Manual) PT INR APTT POC ABG pH ABG pH POC ABG pCO2 POC ABG pO2 ABG pO2 66.6 L ABG HCO3 31.9 H ABG O2 Saturation 92.5 L ABG Base Excess 5.8 H ABG Hemoglobin 13.3 L Oxyhemoglobin 90.6 L Sodium Potassium Chloride 97.2 L Carbon Dioxide BUN 61 H Creatinine 1.8 H Glucose POC Glucose Uric Acid Calcium Phosphorus Magnesium AST ALT Total Creatine Kinase CK-MB (CK-2) 5.2 H Troponin T 0.067 H D NT-Pro-B Natriuret Pep Total Protein Albumin Triglycerides HDL Cholesterol Urine WBC (Auto) Urine Creatinine Urine Total Protein Vancomycin Trough 05/02/19 05/03/19 05/03/19 20:39 04:35 05:05 WBC 11.8 H RBC Hgb Hct MCV MCH 27 L MCHC 31 L RDW 17.2 H Lymph % (Auto) [place] % (Auto) Eos % (Auto) Lymph # [place] # Eos # Seg Neutrophils % Seg Neuts % (Manual) Lymphocytes % (Manual) Monocytes % (Manual) Eosinophils % (Manual) Nucleated RBC % Seg Neutrophils # Lymphocytes # (Manual) Monocytes # (Manual) Eosinophils # (Manual) PT INR APTT POC ABG pH ABG pH POC ABG pCO2 53.6 H 54.0 H POC ABG pO2 55 L 63 L ABG pO2 ABG HCO3 ABG O2 Saturation ABG Base Excess ABG Hemoglobin Oxyhemoglobin Sodium Potassium Chloride Carbon Dioxide BUN Creatinine Glucose POC Glucose Uric Acid Calcium Phosphorus Magnesium AST ALT Total Creatine Kinase CK-MB (CK-2) Troponin T NT-Pro-B Natriuret Pep Total Protein Albumin Triglycerides HDL Cholesterol Urine WBC (Auto) Urine Creatinine Urine Total Protein Vancomycin Trough 05/03/19 05/03/19 05/03/19 05:05 10:55 16:48 WBC RBC Hgb Hct MCV MCH MCHC RDW Lymph % (Auto) [place] % (Auto) Eos % (Auto) Lymph # [place] # Eos # Seg Neutrophils % Seg Neuts % (Manual) Lymphocytes % (Manual) Monocytes % (Manual) Eosinophils % (Manual) Nucleated RBC % Seg Neutrophils # Lymphocytes # (Manual) Monocytes # (Manual) Eosinophils # (Manual) PT INR APTT POC ABG pH 7.604 H ABG pH POC ABG pCO2 POC ABG pO2 58 L ABG pO2 ABG HCO3 ABG O2 Saturation ABG Base Excess ABG Hemoglobin Oxyhemoglobin Sodium Potassium Chloride Carbon Dioxide BUN 52 H Creatinine 1.9 H Glucose 103 H POC Glucose Uric Acid Calcium Phosphorus Magnesium AST ALT Total Creatine Kinase CK-MB (CK-2) Troponin T NT-Pro-B Natriuret Pep Total Protein Albumin Triglycerides HDL Cholesterol Urine WBC (Auto) 33.0 H Urine Creatinine Urine Total Protein Vancomycin Trough 05/04/19 05/04/19 05/04/19 04:49 06:50 06:50 WBC 16.0 H RBC Hgb Hct MCV MCH 27 L MCHC 31 L RDW 17.8 H Lymph % (Auto) [place] % (Auto) Eos % (Auto) Lymph # [place] # Eos # Seg Neutrophils % Seg Neuts % (Manual) Lymphocytes % (Manual) Monocytes % (Manual) Eosinophils % (Manual) Nucleated RBC % Seg Neutrophils # Lymphocytes # (Manual) Monocytes # (Manual) Eosinophils # (Manual) PT INR APTT POC ABG pH 7.273 L ABG pH POC ABG pCO2 POC ABG pO2 ABG pO2 ABG HCO3 ABG O2 Saturation ABG Base Excess ABG Hemoglobin Oxyhemoglobin Sodium 148 H Potassium 5.5 H Chloride Carbon Dioxide BUN 53 H Creatinine 3.3 H D Glucose 106 H POC Glucose Uric Acid Calcium 8.3 L Phosphorus Magnesium AST ALT Total Creatine Kinase CK-MB (CK-2) Troponin T NT-Pro-B Natriuret Pep Total Protein Albumin Triglycerides HDL Cholesterol Urine WBC (Auto) Urine Creatinine Urine Total Protein Vancomycin Trough 05/05/19 05/05/19 05/05/19 00:05 04:30 05:00 WBC RBC Hgb Hct MCV MCH MCHC RDW Lymph % (Auto) [place] % (Auto) Eos % (Auto) Lymph # [place] # Eos # Seg Neutrophils % Seg Neuts % (Manual) Lymphocytes % (Manual) Monocytes % (Manual) Eosinophils % (Manual) Nucleated RBC % Seg Neutrophils # Lymphocytes # (Manual) Monocytes # (Manual) Eosinophils # (Manual) PT INR APTT POC ABG pH 7.225 L ABG pH POC ABG pCO2 > 70 H POC ABG pO2 ABG pO2 ABG HCO3 ABG O2 Saturation ABG Base Excess ABG Hemoglobin Oxyhemoglobin Sodium 151 H Potassium 5.1 H Chloride Carbon Dioxide BUN 64 H Creatinine 3.5 H Glucose 117 H POC Glucose 141 H Uric Acid Calcium 7.5 L Phosphorus Magnesium AST 93 H ALT 65 H Total Creatine Kinase CK-MB (CK-2) Troponin T NT-Pro-B Natriuret Pep Total Protein Albumin 2.9 L Triglycerides HDL Cholesterol Urine WBC (Auto) Urine Creatinine Urine Total Protein Vancomycin Trough 05/05/19 05/05/19 05/05/19 05:00 12:02 17:46 WBC 12.0 H RBC Hgb 11.3 L Hct MCV MCH 27 L MCHC 30 L RDW 18.4 H Lymph % (Auto) 7.9 L [place] % (Auto) 10.2 H Eos % (Auto) Lymph # 1.0 L [place] # 1.2 H Eos # Seg Neutrophils % 80.8 H Seg Neuts % (Manual) Lymphocytes % (Manual) Monocytes % (Manual) Eosinophils % (Manual) Nucleated RBC % Seg Neutrophils # 9.7 H Lymphocytes # (Manual) Monocytes # (Manual) Eosinophils # (Manual) PT INR APTT POC ABG pH ABG pH POC ABG pCO2 POC ABG pO2 ABG pO2 ABG HCO3 ABG O2 Saturation ABG Base Excess ABG Hemoglobin Oxyhemoglobin Sodium Potassium Chloride Carbon Dioxide BUN Creatinine Glucose POC Glucose 125 H 112 H Uric Acid Calcium Phosphorus Magnesium AST ALT Total Creatine Kinase CK-MB (CK-2) Troponin T NT-Pro-B Natriuret Pep Total Protein Albumin Triglycerides HDL Cholesterol Urine WBC (Auto) Urine Creatinine Urine Total Protein Vancomycin Trough 05/05/19 05/06/19 05/06/19 23:42 03:58 04:45 WBC 11.4 H RBC Hgb 10.7 L Hct 34.2 L MCV MCH 27 L MCHC 31 L RDW 16.9 H Lymph % (Auto) [place] % (Auto) Eos % (Auto) Lymph # [place] # Eos # Seg Neutrophils % Seg Neuts % (Manual) Lymphocytes % (Manual) Monocytes % (Manual) Eosinophils % (Manual) Nucleated RBC % Seg Neutrophils # Lymphocytes # (Manual) Monocytes # (Manual) Eosinophils # (Manual) PT INR APTT POC ABG pH ABG pH POC ABG pCO2 62.4 H POC ABG pO2 111 H ABG pO2 ABG HCO3 ABG O2 Saturation ABG Base Excess ABG Hemoglobin Oxyhemoglobin Sodium Potassium Chloride Carbon Dioxide BUN Creatinine Glucose POC Glucose 128 H Uric Acid Calcium Phosphorus Magnesium AST ALT Total Creatine Kinase CK-MB (CK-2) Troponin T NT-Pro-B Natriuret Pep Total Protein Albumin Triglycerides HDL Cholesterol Urine WBC (Auto) Urine Creatinine Urine Total Protein Vancomycin Trough 05/06/19 05/06/19 05/06/19 04:45 05:33 12:30 WBC RBC Hgb Hct MCV MCH MCHC RDW Lymph % (Auto) [place] % (Auto) Eos % (Auto) Lymph # [place] # Eos # Seg Neutrophils % Seg Neuts % (Manual) Lymphocytes % (Manual) Monocytes % (Manual) Eosinophils % (Manual) Nucleated RBC % Seg Neutrophils # Lymphocytes # (Manual) Monocytes # (Manual) Eosinophils # (Manual) PT INR APTT POC ABG pH ABG pH POC ABG pCO2 POC ABG pO2 ABG pO2 ABG HCO3 ABG O2 Saturation ABG Base Excess ABG Hemoglobin Oxyhemoglobin Sodium 149 H Potassium Chloride Carbon Dioxide 31 H BUN 67 H Creatinine 3.2 H Glucose 125 H POC Glucose 117 H 116 H Uric Acid Calcium 7.5 L Phosphorus Magnesium AST ALT Total Creatine Kinase CK-MB (CK-2) Troponin T NT-Pro-B Natriuret Pep Total Protein Albumin Triglycerides HDL Cholesterol Urine WBC (Auto) Urine Creatinine Urine Total Protein Vancomycin Trough 05/06/19 05/06/19 05/07/19 18:34 23:16 05:22 WBC RBC Hgb Hct MCV MCH MCHC RDW Lymph % (Auto) [place] % (Auto) Eos % (Auto) Lymph # [place] # Eos # Seg Neutrophils % Seg Neuts % (Manual) Lymphocytes % (Manual) Monocytes % (Manual) Eosinophils % (Manual) Nucleated RBC % Seg Neutrophils # Lymphocytes # (Manual) Monocytes # (Manual) Eosinophils # (Manual) PT INR APTT POC ABG pH ABG pH POC ABG pCO2 POC ABG pO2 ABG pO2 ABG HCO3 ABG O2 Saturation ABG Base Excess ABG Hemoglobin Oxyhemoglobin Sodium Potassium Chloride Carbon Dioxide BUN Creatinine Glucose POC Glucose 128 H 143 H 166 H Uric Acid Calcium Phosphorus Magnesium AST ALT Total Creatine Kinase CK-MB (CK-2) Troponin T NT-Pro-B Natriuret Pep Total Protein Albumin Triglycerides HDL Cholesterol Urine WBC (Auto) Urine Creatinine Urine Total Protein Vancomycin Trough 05/07/19 05/07/19 05/07/19 06:33 07:03 09:35 WBC RBC Hgb Hct MCV MCH MCHC RDW Lymph % (Auto) [place] % (Auto) Eos % (Auto) Lymph # [place] # Eos # Seg Neutrophils % Seg Neuts % (Manual) Lymphocytes % (Manual) Monocytes % (Manual) Eosinophils % (Manual) Nucleated RBC % Seg Neutrophils # Lymphocytes # (Manual) Monocytes # (Manual) Eosinophils # (Manual) PT INR APTT POC ABG pH 7.263 L 7.288 L ABG pH POC ABG pCO2 POC ABG pO2 51 L 56 L ABG pO2 ABG HCO3 ABG O2 Saturation ABG Base Excess ABG Hemoglobin Oxyhemoglobin Sodium Potassium Chloride Carbon Dioxide BUN 76 H Creatinine 3.2 H Glucose 147 H POC Glucose Uric Acid Calcium 7.9 L Phosphorus Magnesium AST ALT Total Creatine Kinase CK-MB (CK-2) Troponin T NT-Pro-B Natriuret Pep Total Protein Albumin Triglycerides HDL Cholesterol Urine WBC (Auto) Urine Creatinine Urine Total Protein Vancomycin Trough 05/07/19 05/07/19 05/07/19 09:35 12:17 13:45 WBC 13.4 H RBC Hgb 11.6 L Hct MCV MCH 27 L MCHC 31 L RDW 17.5 H Lymph % (Auto) [place] % (Auto) Eos % (Auto) Lymph # [place] # Eos # Seg Neutrophils % Seg Neuts % (Manual) Lymphocytes % (Manual) Monocytes % (Manual) Eosinophils % (Manual) Nucleated RBC % Seg Neutrophils # Lymphocytes # (Manual) Monocytes # (Manual) Eosinophils # (Manual) PT INR APTT POC ABG pH ABG pH POC ABG pCO2 POC ABG pO2 ABG pO2 ABG HCO3 ABG O2 Saturation ABG Base Excess ABG Hemoglobin Oxyhemoglobin Sodium Potassium Chloride Carbon Dioxide BUN Creatinine Glucose POC Glucose 130 H Uric Acid 18.0 H Calcium Phosphorus Magnesium AST ALT Total Creatine Kinase CK-MB (CK-2) Troponin T NT-Pro-B Natriuret Pep Total Protein Albumin Triglycerides HDL Cholesterol Urine WBC (Auto) Urine Creatinine Urine Total Protein Vancomycin Trough 05/07/19 05/07/19 05/08/19 17:39 22:40 05:06 WBC RBC Hgb Hct MCV MCH MCHC RDW Lymph % (Auto) [place] % (Auto) Eos % (Auto) Lymph # [place] # Eos # Seg Neutrophils % Seg Neuts % (Manual) Lymphocytes % (Manual) Monocytes % (Manual) Eosinophils % (Manual) Nucleated RBC % Seg Neutrophils # Lymphocytes # (Manual) Monocytes # (Manual) Eosinophils # (Manual) PT INR APTT POC ABG pH ABG pH POC ABG pCO2 POC ABG pO2 ABG pO2 ABG HCO3 ABG O2 Saturation ABG Base Excess ABG Hemoglobin Oxyhemoglobin Sodium Potassium Chloride Carbon Dioxide BUN Creatinine Glucose POC Glucose 116 H 148 H Uric Acid Calcium Phosphorus Magnesium AST ALT Total Creatine Kinase CK-MB (CK-2) Troponin T NT-Pro-B Natriuret Pep Total Protein Albumin Triglycerides HDL Cholesterol Urine WBC (Auto) Urine Creatinine 292.8 H Urine Total Protein 269 H Vancomycin Trough 05/08/19 05/08/19 05/08/19 05:32 11:28 13:48 WBC RBC Hgb Hct MCV MCH MCHC RDW Lymph % (Auto) [place] % (Auto) Eos % (Auto) Lymph # [place] # Eos # Seg Neutrophils % Seg Neuts % (Manual) Lymphocytes % (Manual) Monocytes % (Manual) Eosinophils % (Manual) Nucleated RBC % Seg Neutrophils # Lymphocytes # (Manual) Monocytes # (Manual) Eosinophils # (Manual) PT INR APTT POC ABG pH ABG pH POC ABG pCO2 45.4 H POC ABG pO2 64 L ABG pO2 ABG HCO3 ABG O2 Saturation ABG Base Excess ABG Hemoglobin Oxyhemoglobin Sodium Potassium Chloride Carbon Dioxide BUN 73 H Creatinine 2.7 H Glucose 127 H POC Glucose 107 H Uric Acid Calcium 7.6 L Phosphorus Magnesium AST ALT Total Creatine Kinase CK-MB (CK-2) Troponin T NT-Pro-B Natriuret Pep Total Protein Albumin Triglycerides HDL Cholesterol Urine WBC (Auto) Urine Creatinine Urine Total Protein Vancomycin Trough 05/08/19 05/09/19 05/09/19 17:48 04:50 04:53 WBC RBC 3.07 L Hgb 8.5 L D Hct 29.3 L D MCV 96 H MCH MCHC 29 L RDW 18.1 H Lymph % (Auto) [place] % (Auto) Eos % (Auto) Lymph # [place] # Eos # Seg Neutrophils % Seg Neuts % (Manual) Lymphocytes % (Manual) Monocytes % (Manual) Eosinophils % (Manual) Nucleated RBC % Seg Neutrophils # Lymphocytes # (Manual) Monocytes # (Manual) Eosinophils # (Manual) PT INR APTT POC ABG pH 7.316 L ABG pH POC ABG pCO2 66.0 H POC ABG pO2 69 L ABG pO2 ABG HCO3 ABG O2 Saturation ABG Base Excess ABG Hemoglobin Oxyhemoglobin Sodium Potassium Chloride Carbon Dioxide BUN Creatinine Glucose POC Glucose 155 H Uric Acid Calcium Phosphorus Magnesium AST ALT Total Creatine Kinase CK-MB (CK-2) Troponin T NT-Pro-B Natriuret Pep Total Protein Albumin Triglycerides HDL Cholesterol Urine WBC (Auto) Urine Creatinine Urine Total Protein Vancomycin Trough 05/09/19 05/09/19 05/09/19 05:46 07:24 12:10 WBC RBC Hgb Hct MCV MCH MCHC RDW Lymph % (Auto) [place] % (Auto) Eos % (Auto) Lymph # [place] # Eos # Seg Neutrophils % Seg Neuts % (Manual) Lymphocytes % (Manual) Monocytes % (Manual) Eosinophils % (Manual) Nucleated RBC % Seg Neutrophils # Lymphocytes # (Manual) Monocytes # (Manual) Eosinophils # (Manual) PT INR APTT POC ABG pH ABG pH POC ABG pCO2 POC ABG pO2 ABG pO2 ABG HCO3 ABG O2 Saturation ABG Base Excess ABG Hemoglobin Oxyhemoglobin Sodium Potassium Chloride Carbon Dioxide BUN 73 H Creatinine 2.4 H Glucose 153 H POC Glucose 123 H 148 H Uric Acid Calcium 8.2 L Phosphorus Magnesium AST 45 H ALT Total Creatine Kinase CK-MB (CK-2) Troponin T NT-Pro-B Natriuret Pep Total Protein 6.0 L Albumin 1.9 L Triglycerides HDL Cholesterol Urine WBC (Auto) Urine Creatinine Urine Total Protein Vancomycin Trough 05/09/19 05/09/19 05/10/19 18:23 23:26 04:52 WBC RBC Hgb Hct MCV MCH MCHC RDW Lymph % (Auto) [place] % (Auto) Eos % (Auto) Lymph # [place] # Eos # Seg Neutrophils % Seg Neuts % (Manual) Lymphocytes % (Manual) Monocytes % (Manual) Eosinophils % (Manual) Nucleated RBC % Seg Neutrophils # Lymphocytes # (Manual) Monocytes # (Manual) Eosinophils # (Manual) PT INR APTT POC ABG pH 7.305 L ABG pH POC ABG pCO2 62.6 H POC ABG pO2 ABG pO2 ABG HCO3 ABG O2 Saturation ABG Base Excess ABG Hemoglobin Oxyhemoglobin Sodium Potassium Chloride Carbon Dioxide BUN Creatinine Glucose POC Glucose 147 H 121 H Uric Acid Calcium Phosphorus Magnesium AST ALT Total Creatine Kinase CK-MB (CK-2) Troponin T NT-Pro-B Natriuret Pep Total Protein Albumin Triglycerides HDL Cholesterol Urine WBC (Auto) Urine Creatinine Urine Total Protein Vancomycin Trough 05/10/19 05/10/19 05/10/19 05:00 05:00 05:50 WBC RBC Hgb 10.3 L Hct 33.7 L MCV MCH 27 L MCHC 31 L RDW 17.0 H Lymph % (Auto) [place] % (Auto) Eos % (Auto) Lymph # [place] # Eos # Seg Neutrophils % Seg Neuts % (Manual) Lymphocytes % (Manual) Monocytes % (Manual) Eosinophils % (Manual) Nucleated RBC % Seg Neutrophils # Lymphocytes # (Manual) Monocytes # (Manual) Eosinophils # (Manual) PT INR APTT POC ABG pH ABG pH POC ABG pCO2 POC ABG pO2 ABG pO2 ABG HCO3 ABG O2 Saturation ABG Base Excess ABG Hemoglobin Oxyhemoglobin Sodium 147 H Potassium Chloride Carbon Dioxide BUN 70 H Creatinine 2.6 H Glucose 155 H POC Glucose 158 H Uric Acid Calcium 8.2 L Phosphorus Magnesium AST ALT Total Creatine Kinase CK-MB (CK-2) Troponin T NT-Pro-B Natriuret Pep Total Protein 6.1 L Albumin 2.5 L Triglycerides HDL Cholesterol Urine WBC (Auto) Urine Creatinine Urine Total Protein Vancomycin Trough 05/10/19 05/11/19 05/11/19 13:14 07:26 11:40 WBC RBC Hgb Hct MCV MCH MCHC RDW Lymph % (Auto) [place] % (Auto) Eos % (Auto) Lymph # [place] # Eos # Seg Neutrophils % Seg Neuts % (Manual) Lymphocytes % (Manual) Monocytes % (Manual) Eosinophils % (Manual) Nucleated RBC % Seg Neutrophils # Lymphocytes # (Manual) Monocytes # (Manual) Eosinophils # (Manual) PT INR APTT POC ABG pH ABG pH POC ABG pCO2 48.0 H POC ABG pO2 58 L ABG pO2 ABG HCO3 ABG O2 Saturation ABG Base Excess ABG Hemoglobin Oxyhemoglobin Sodium 147 H Potassium Chloride 107.2 H Carbon Dioxide BUN 67 H Creatinine 2.6 H Glucose 121 H POC Glucose 159 H Uric Acid Calcium Phosphorus Magnesium AST ALT Total Creatine Kinase CK-MB (CK-2) Troponin T NT-Pro-B Natriuret Pep Total Protein Albumin Triglycerides HDL Cholesterol Urine WBC (Auto) Urine Creatinine Urine Total Protein Vancomycin Trough 05/11/19 05/11/19 05/12/19 18:13 23:46 04:40 WBC RBC Hgb Hct MCV MCH MCHC RDW Lymph % (Auto) [place] % (Auto) Eos % (Auto) Lymph # [place] # Eos # Seg Neutrophils % Seg Neuts % (Manual) Lymphocytes % (Manual) Monocytes % (Manual) Eosinophils % (Manual) Nucleated RBC % Seg Neutrophils # Lymphocytes # (Manual) Monocytes # (Manual) Eosinophils # (Manual) PT INR APTT POC ABG pH ABG pH 7.264 L POC ABG pCO2 POC ABG pO2 ABG pO2 66.8 L ABG HCO3 31.0 H ABG O2 Saturation 92.0 L ABG Base Excess ABG Hemoglobin 10.3 L Oxyhemoglobin 90.1 L Sodium Potassium Chloride Carbon Dioxide BUN Creatinine Glucose POC Glucose 120 H 121 H Uric Acid Calcium Phosphorus Magnesium AST ALT Total Creatine Kinase CK-MB (CK-2) Troponin T NT-Pro-B Natriuret Pep Total Protein Albumin Triglycerides HDL Cholesterol Urine WBC (Auto) Urine Creatinine Urine Total Protein Vancomycin Trough 05/12/19 05/12/19 05/12/19 04:45 04:45 11:14 WBC RBC Hgb 10.2 L Hct 32.4 L MCV MCH MCHC 31 L RDW 17.2 H Lymph % (Auto) [place] % (Auto) Eos % (Auto) Lymph # [place] # Eos # Seg Neutrophils % Seg Neuts % (Manual) Lymphocytes % (Manual) Monocytes % (Manual) Eosinophils % (Manual) Nucleated RBC % Seg Neutrophils # Lymphocytes # (Manual) Monocytes # (Manual) Eosinophils # (Manual) PT INR APTT POC ABG pH 7.284 L ABG pH POC ABG pCO2 67.8 H POC ABG pO2 ABG pO2 ABG HCO3 ABG O2 Saturation ABG Base Excess ABG Hemoglobin Oxyhemoglobin Sodium Potassium Chloride Carbon Dioxide BUN 63 H Creatinine 2.4 H Glucose 110 H POC Glucose Uric Acid Calcium Phosphorus Magnesium AST ALT Total Creatine Kinase CK-MB (CK-2) Troponin T NT-Pro-B Natriuret Pep Total Protein Albumin Triglycerides HDL Cholesterol Urine WBC (Auto) Urine Creatinine Urine Total Protein Vancomycin Trough 05/12/19 05/12/1905/13/19 11:44 23:11 04:30 WBC RBC Hgb Hct MCV MCH MCHC RDW Lymph % (Auto) [place] % (Auto) Eos % (Auto) Lymph # [place] # Eos # Seg Neutrophils % Seg Neuts % (Manual) Lymphocytes % (Manual) Monocytes % (Manual) Eosinophils % (Manual) Nucleated RBC % Seg Neutrophils # Lymphocytes # (Manual) Monocytes # (Manual) Eosinophils # (Manual) PT INR APTT POC ABG pH ABG pH 7.288 L POC ABG pCO2 POC ABG pO2 ABG pO2 109.7 H ABG HCO3 30.9 H ABG O2 Saturation ABG Base Excess 3.2 H ABG Hemoglobin 9.6 L Oxyhemoglobin Sodium Potassium Chloride Carbon Dioxide BUN Creatinine Glucose POC Glucose 126 H 147 H Uric Acid Calcium Phosphorus Magnesium AST ALT Total Creatine Kinase CK-MB (CK-2) Troponin T NT-Pro-B Natriuret Pep Total Protein Albumin Triglycerides HDL Cholesterol Urine WBC (Auto) Urine Creatinine Urine Total Protein Vancomycin Trough 05/13/19 05/13/19 05/14/19 06:27 11:58 04:00 WBC RBC 3.16 L Hgb 9.3 L Hct 27.9 L MCV MCH MCHC RDW 17.1 H Lymph % (Auto) [place] % (Auto) Eos % (Auto) Lymph # [place] # Eos # Seg Neutrophils % Seg Neuts % (Manual) Lymphocytes % (Manual) Monocytes % (Manual) Eosinophils % (Manual) Nucleated RBC % Seg Neutrophils # Lymphocytes # (Manual) Monocytes # (Manual) Eosinophils # (Manual) PT INR APTT POC ABG pH ABG pH POC ABG pCO2 POC ABG pO2 ABG pO2 ABG HCO3 ABG O2 Saturation ABG Base Excess ABG Hemoglobin Oxyhemoglobin Sodium Potassium Chloride Carbon Dioxide BUN Creatinine Glucose POC Glucose 113 H 130 H Uric Acid Calcium Phosphorus Magnesium AST ALT Total Creatine Kinase CK-MB (CK-2) Troponin T NT-Pro-B Natriuret Pep Total Protein Albumin Triglycerides HDL Cholesterol Urine WBC (Auto) Urine Creatinine Urine Total Protein Vancomycin Trough 05/14/19 05/14/19 05/14/19 04:00 04:34 05:32 WBC RBC Hgb Hct MCV MCH MCHC RDW Lymph % (Auto) [place] % (Auto) Eos % (Auto) Lymph # [place] # Eos # Seg Neutrophils % Seg Neuts % (Manual) Lymphocytes % (Manual) Monocytes % (Manual) Eosinophils % (Manual) Nucleated RBC % Seg Neutrophils # Lymphocytes # (Manual) Monocytes # (Manual) Eosinophils # (Manual) PT INR APTT POC ABG pH 7.328 L ABG pH POC ABG pCO2 61.7 H POC ABG pO2 ABG pO2 ABG HCO3 ABG O2 Saturation ABG Base Excess ABG Hemoglobin Oxyhemoglobin Sodium 135 L D Potassium Chloride Carbon Dioxide BUN 57 H Creatinine 2.2 H Glucose 115 H POC Glucose 115 H Uric Acid Calcium 8.1 L Phosphorus Magnesium AST ALT Total Creatine Kinase CK-MB (CK-2) Troponin T NT-Pro-B Natriuret Pep Total Protein Albumin Triglycerides HDL Cholesterol Urine WBC (Auto) Urine Creatinine Urine Total Protein Vancomycin Trough 05/14/19 05/15/19 05/15/19 12:11 05:10 05:24 WBC RBC Hgb Hct MCV MCH MCHC RDW Lymph % (Auto) [place] % (Auto) Eos % (Auto) Lymph # [place] # Eos # Seg Neutrophils % Seg Neuts % (Manual) Lymphocytes % (Manual) Monocytes % (Manual) Eosinophils % (Manual) Nucleated RBC % Seg Neutrophils # Lymphocytes # (Manual) Monocytes # (Manual) Eosinophils # (Manual) PT INR APTT POC ABG pH ABG pH 7.342 L POC ABG pCO2 POC ABG pO2 ABG pO2 79.1 L ABG HCO3 28.2 H ABG O2 Saturation ABG Base Excess ABG Hemoglobin 7.0 L Oxyhemoglobin 94.4 L Sodium Potassium Chloride Carbon Dioxide BUN Creatinine Glucose POC Glucose 110 H 116 H Uric Acid Calcium Phosphorus Magnesium AST ALT Total Creatine Kinase CK-MB (CK-2) Troponin T NT-Pro-B Natriuret Pep Total Protein Albumin Triglycerides HDL Cholesterol Urine WBC (Auto) Urine Creatinine Urine Total Protein Vancomycin Trough 05/15/19 05/15/19 05/16/19 09:00 18:12 04:50 WBC RBC Hgb Hct MCV MCH MCHC RDW Lymph % (Auto) [place] % (Auto) Eos % (Auto) Lymph # [place] # Eos # Seg Neutrophils % Seg Neuts % (Manual) Lymphocytes % (Manual) Monocytes % (Manual) Eosinophils % (Manual) Nucleated RBC % Seg Neutrophils # Lymphocytes # (Manual) Monocytes # (Manual) Eosinophils # (Manual) PT INR APTT POC ABG pH ABG pH 7.250 L POC ABG pCO2 POC ABG pO2 ABG pO2 76.4 L ABG HCO3 ABG O2 Saturation 94.6 L ABG Base Excess -3.1 L ABG Hemoglobin 9.7 L Oxyhemoglobin 92.4 L Sodium Potassium Chloride Carbon Dioxide BUN Creatinine Glucose POC Glucose 110 H Uric Acid Calcium Phosphorus Magnesium AST ALT Total Creatine Kinase CK-MB (CK-2) Troponin T NT-Pro-B Natriuret Pep Total Protein Albumin Triglycerides HDL Cholesterol Urine WBC (Auto) Urine Creatinine Urine Total Protein Vancomycin Trough 20.5 H 05/16/19 05/16/19 05/17/19 05:50 05:50 04:20 WBC RBC 3.36 L 3.44 L Hgb 9.4 L 9.3 L Hct 29.1 L 29.7 L MCV MCH 27 L MCHC 31 L RDW 17.6 H 17.6 H Lymph % (Auto) [place] % (Auto) Eos % (Auto) Lymph # [place] # Eos # Seg Neutrophils % Seg Neuts % (Manual) 77.0 H Lymphocytes % (Manual) 5.0 L Monocytes % (Manual) Eosinophils % (Manual) 10.0 H Nucleated RBC % Seg Neutrophils # Lymphocytes # (Manual) 0.5 L Monocytes # (Manual) Eosinophils # (Manual) 0.9 H PT INR APTT POC ABG pH ABG pH POC ABG pCO2 POC ABG pO2 ABG pO2 ABG HCO3 ABG O2 Saturation ABG Base Excess ABG Hemoglobin Oxyhemoglobin Sodium Potassium Chloride Carbon Dioxide BUN 83 H Creatinine 4.4 H D Glucose 118 H POC Glucose Uric Acid Calcium Phosphorus Magnesium AST ALT Total Creatine Kinase CK-MB (CK-2) Troponin T NT-Pro-B Natriuret Pep Total Protein Albumin Triglycerides HDL Cholesterol Urine WBC (Auto) Urine Creatinine Urine Total Protein Vancomycin Trough 05/17/19 05/17/19 05/18/19 04:30 Unknown 01:50 WBC RBC 3.49 L Hgb 9.4 L Hct 30.0 L MCV MCH 27 L MCHC 31 L RDW 17.8 H Lymph % (Auto) 7.9 L [place] % (Auto) 15.4 H Eos % (Auto) 6.3 H Lymph # 0.7 L [place] # 1.4 H Eos # 0.6 H Seg Neutrophils % 70.2 H Seg Neuts % (Manual) Lymphocytes % (Manual) Monocytes % (Manual) Eosinophils % (Manual) Nucleated RBC % Seg Neutrophils # Lymphocytes # (Manual) Monocytes # (Manual) Eosinophils # (Manual) PT INR APTT POC ABG pH ABG pH 7.272 L POC ABG pCO2 POC ABG pO2 ABG pO2 75.7 L ABG HCO3 ABG O2 Saturation 93.8 L ABG Base Excess -3.0 L ABG Hemoglobin 7.8 L Oxyhemoglobin 91.6 L Sodium Potassium 5.2 H Chloride Carbon Dioxide BUN 96 H Creatinine 5.7 H Glucose 112 H POC Glucose Uric Acid Calcium Phosphorus Magnesium AST ALT Total Creatine Kinase CK-MB (CK-2) Troponin T NT-Pro-B Natriuret Pep Total Protein Albumin Triglycerides 173 H HDL Cholesterol Urine WBC (Auto) Urine Creatinine Urine Total Protein Vancomycin Trough 05/18/19 05/18/19 05/18/19 01:50 04:41 05:24 WBC RBC Hgb Hct MCV MCH MCHC RDW Lymph % (Auto) [place] % (Auto) Eos % (Auto) Lymph # [place] # Eos # Seg Neutrophils % Seg Neuts % (Manual) Lymphocytes % (Manual) Monocytes % (Manual) Eosinophils % (Manual) Nucleated RBC % Seg Neutrophils # Lymphocytes # (Manual) Monocytes # (Manual) Eosinophils # (Manual) PT INR APTT POC ABG pH 7.260 L ABG pH POC ABG pCO2 54.9 H POC ABG pO2 ABG pO2 ABG HCO3 ABG O2 Saturation ABG Base Excess ABG Hemoglobin Oxyhemoglobin Sodium Potassium 5.6 H Chloride Carbon Dioxide BUN 104 H Creatinine 6.6 H Glucose 107 H POC Glucose 106 H Uric Acid Calcium Phosphorus Magnesium AST ALT Total Creatine Kinase CK-MB (CK-2) Troponin T NT-Pro-B Natriuret Pep Total Protein Albumin Triglycerides HDL Cholesterol Urine WBC (Auto) Urine Creatinine Urine Total Protein Vancomycin Trough 05/18/19 05/18/19 05/19/19 11:34 23:26 04:06 WBC RBC 3.22 L Hgb 8.8 L Hct 27.3 L MCV MCH 27 L MCHC RDW 17.5 H Lymph % (Auto) [place] % (Auto) Eos % (Auto) Lymph # [place] # Eos # Seg Neutrophils % Seg Neuts % (Manual) 74.0 H Lymphocytes % (Manual) 4.0 L Monocytes % (Manual) 11.0 H Eosinophils % (Manual) 7.0 H Nucleated RBC % 1.0 H Seg Neutrophils # Lymphocytes # (Manual) 0.3 L Monocytes # (Manual) 0.9 H Eosinophils # (Manual) 0.6 H PT INR APTT POC ABG pH ABG pH POC ABG pCO2 POC ABG pO2 ABG pO2 ABG HCO3 ABG O2 Saturation ABG Base Excess ABG Hemoglobin Oxyhemoglobin Sodium Potassium Chloride Carbon Dioxide BUN Creatinine Glucose POC Glucose 152 H 112 H Uric Acid Calcium Phosphorus Magnesium AST ALT Total Creatine Kinase CK-MB (CK-2) Troponin T NT-Pro-B Natriuret Pep Total Protein Albumin Triglycerides HDL Cholesterol Urine WBC (Auto) Urine Creatinine Urine Total Protein Vancomycin Trough 05/19/19 05/19/19 05/20/19 04:06 06:00 04:00 WBC RBC 3.40 L Hgb 9.2 L Hct 28.6 L MCV MCH 27 L MCHC RDW 17.6 H Lymph % (Auto) [place] % (Auto) Eos % (Auto) Lymph # [place] # Eos # Seg Neutrophils % Seg Neuts % (Manual) Lymphocytes % (Manual) 11.0 L Monocytes % (Manual) Eosinophils % (Manual) 14.0 H Nucleated RBC % Seg Neutrophils # Lymphocytes # (Manual) 1.1 L Monocytes # (Manual) Eosinophils # (Manual) 1.4 H PT INR APTT POC ABG pH ABG pH 7.315 L POC ABG pCO2 POC ABG pO2 ABG pO2 ABG HCO3 ABG O2 Saturation ABG Base Excess ABG Hemoglobin 6.7 L Oxyhemoglobin 94.1 L Sodium Potassium 5.2 H Chloride Carbon Dioxide 21 L BUN 110 H Creatinine 7.2 H Glucose POC Glucose Uric Acid Calcium 8.3 L Phosphorus Magnesium AST ALT Total Creatine Kinase CK-MB (CK-2) Troponin T NT-Pro-B Natriuret Pep Total Protein Albumin Triglycerides HDL Cholesterol Urine WBC (Auto) Urine Creatinine Urine Total Protein Vancomycin Trough 05/20/19 05/20/19 05/20/19 04:00 05:48 12:00 WBC RBC Hgb Hct MCV MCH MCHC RDW Lymph % (Auto) [place] % (Auto) Eos % (Auto) Lymph # [place] # Eos # Seg Neutrophils % Seg Neuts % (Manual) Lymphocytes % (Manual) Monocytes % (Manual) Eosinophils % (Manual) Nucleated RBC % Seg Neutrophils # Lymphocytes # (Manual) Monocytes # (Manual) Eosinophils # (Manual) PT INR APTT POC ABG pH ABG pH 7.281 L POC ABG pCO2 POC ABG pO2 ABG pO2 78.7 L ABG HCO3 ABG O2 Saturation 94.5 L ABG Base Excess -3.0 L ABG Hemoglobin 9.9 L Oxyhemoglobin 92.5 L Sodium 136 L Potassium 5.7 H Chloride 96.3 L Carbon Dioxide BUN 125 H Creatinine 8.3 H Glucose 106 H POC Glucose Uric Acid Calcium Phosphorus Magnesium AST ALT Total Creatine Kinase CK-MB (CK-2) Troponin T NT-Pro-B Natriuret Pep Total Protein Albumin Triglycerides HDL Cholesterol Urine WBC (Auto) 26.0 H Urine Creatinine Urine Total Protein Vancomycin Trough 05/21/19 05/21/19 05/21/19 04:33 05:20 Unknown WBC RBC 3.38 L Hgb 9.1 L Hct 28.5 L MCV MCH 27 L MCHC RDW 17.4 H Lymph % (Auto) [place] % (Auto) Eos % (Auto) Lymph # [place] # Eos # Seg Neutrophils % Seg Neuts % (Manual) 71.0 H Lymphocytes % (Manual) 1.0 L Monocytes % (Manual) 11.0 H Eosinophils % (Manual) 6.0 H Nucleated RBC % Seg Neutrophils # Lymphocytes # (Manual) 0.1 L Monocytes # (Manual) 1.0 H Eosinophils # (Manual) 0.6 H PT INR APTT POC ABG pH 7.315 L ABG pH POC ABG pCO2 57.8 H POC ABG pO2 68 L ABG pO2 ABG HCO3 ABG O2 Saturation ABG Base Excess ABG Hemoglobin Oxyhemoglobin Sodium Potassium Chloride 96.3 L Carbon Dioxide BUN 102 H Creatinine 7.0 H Glucose 103 H POC Glucose Uric Acid Calcium Phosphorus Magnesium AST ALT Total Creatine Kinase CK-MB (CK-2) Troponin T NT-Pro-B Natriuret Pep Total Protein Albumin Triglycerides HDL Cholesterol Urine WBC (Auto) Urine Creatinine Urine Total Protein Vancomycin Trough 05/22/19 05/22/19 05/22/19 03:54 06:25 06:25 WBC RBC 3.22 L Hgb 8.6 L Hct 27.0 L MCV MCH 27 L MCHC RDW 17.5 H Lymph % (Auto) [place] % (Auto) 16.2 H Eos % (Auto) 10.8 H Lymph # [place] # 1.3 H Eos # 0.9 H Seg Neutrophils % Seg Neuts % (Manual) Lymphocytes % (Manual) 10.0 L Monocytes % (Manual) 13.0 H Eosinophils % (Manual) 8.0 H Nucleated RBC % Seg Neutrophils # Lymphocytes # (Manual) 0.9 L Monocytes # (Manual) 1.1 H Eosinophils # (Manual) 0.7 H PT INR APTT POC ABG pH 7.313 L ABG pH POC ABG pCO2 55.0 H POC ABG pO2 ABG pO2 ABG HCO3 ABG O2 Saturation ABG Base Excess ABG Hemoglobin Oxyhemoglobin Sodium 135 L Potassium Chloride 94.3 L Carbon Dioxide BUN 117 H Creatinine 7.8 H Glucose POC Glucose Uric Acid Calcium 8.2 L Phosphorus Magnesium AST ALT Total Creatine Kinase CK-MB (CK-2) Troponin T NT-Pro-B Natriuret Pep Total Protein Albumin Triglycerides HDL Cholesterol Urine WBC (Auto) Urine Creatinine Urine Total Protein Vancomycin Trough
--- NOTE | 2019-05-22 14:51 | Progress Note ---
Assessment and Plan Assessment and plan: Patient is a 34-year-old man who is morbidly obese (575 lbs) with unknown medical history who presented to [facility] ED on 05/01/2019 (I started seeing patient for the first time on 05/20/19, Day 19) with SOB. He was placed on BIPAP and failed. He had cardiac arrest in ED and was Intubated in ED. On 05/12/19- ETT exchanged due to hypoxia. In the chart there is a report that he has undiagnosis LANDON and using someone else CPAP. 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 Acute hypoxic and hypercapenic respiratory failure on vent >96hrs Status post intubation, continue sedation, consulted pulmonary And input noted still on high PEEP, making Tracheostomy difficult to attempt. 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 Obesity Hypoventilation syndrome Patient previously on LANDON Management at home but per discussion with family, was non complaint Sepsis- not present on admission -On abx, ID following. LP when able ?Meningitis considering recurrent fever. Doubt, but ID following Acylovir stopped ?seizure activity -Meninigitis prophy -Neurology consult -EEG-negative Acute CHF, new onset, diastolic Diurese with IV lasix held, on HD now monitor I/O, daily weights Cardiology following. Added beta-jenny, no TIM inhibitor secondary to renal insufficiency Hypertension malignant Start antihypertensive, monitor blood pressure IV hydralazine as needed for further control Acute kidney injury due to ATN ?Vancomycin toxicity, Held. Monitor Nephrology following and input noted. Han for strict I/Os HD per nephrology Hyperkalemia-Kaylexate Passive congestive hepatic syndrome -LFT elevated but trending down -Noted Gallbladder sludge DVT prophylaxis with Lovenox Morbid obesity Full code status. Prognosis guarded +han removed +ETT +NGT +Fentanyl; and Diprivan RUE PIcc off levaphed since morning receiving HD drool, with increased secretion, scopolamine patch helped ?trach consideration, intubated since admission 05/01/19==>high PEEP, ?PEG consideration ?Still febrile, I called his mother Magalis Jay at [phone] @1251, no answer no family present CCT 36 minutes History Interval history: Patient was seen and examined. Follow-up on current diagnosis of Respiratory failure. Overnight uneventful. Imaging, nursing note, chart, labs and old chart reviewed. Still intubated and sedated Hospitalist Physical - Physical exam Narrative exam: Gen: critically ill, bmi 70.1 sedated HEENT: NCAT, OP ETT in place Neck: supple, no adenopathy, no thyromegaly, no JVD CVS/Heart: tachycardiac, normal S1S2, pulses present bilaterally Chest/Lungs: tachypneic, Symmetrical chest expansion, good air entry bilaterally GI/Abdomen: soft, NTND, good bowel sounds, no guarding or rebound : scrotal edema, unable to see his penis Extermity/Skin: good skin turgor MSK: sedated Neuro: sedated Psych: sedated - Constitutional Vitals: Temp Pulse Resp BP Pulse Ox 100.4 F H 108 H 26 H 128/60 92 05/22/19 08:00 05/22/19 12:45 05/22/19 12:45 05/22/19 12:45 05/22/19 12:45 General appearance: Present: no acute distress Results - Labs CBC & Chem 7: 05/22/19 06:25 05/22/19 06:25 Labs: Laboratory Last Values WBC 8.6 K/mm3 (4.5-11.0) 05/22/19 06:25 RBC 3.22 M/mm3 (3.65-5.03) L 05/22/19 06:25 Hgb 8.6 gm/dl (11.8-15.2) L 05/22/19 06:25 Hct 27.0 % (35.5-45.6) L 05/22/19 06:25 MCV 84 fl (84-94) 05/22/19 06:25 MCH 27 pg (28-32) L 05/22/19 06:25 MCHC 32 % (32-34) 05/22/19 06:25 RDW 17.5 % (13.2-15.2) H 05/22/19 06:25 Plt Count 347 K/mm3 (140-440) 05/22/19 06:25 Lymph % (Auto) 7.9 % (13.4-35.0) L 05/18/19 01:50 [place] % (Auto) 16.2 % (0.0-7.3) H 05/22/19 06:25 Eos % (Auto) 10.8 % (0.0-4.3) H 05/22/19 06:25 Baso % (Auto) 0.2 % (0.0-1.8) 05/18/19 01:50 Lymph # 0.7 K/mm3 (1.2-5.4) L 05/18/19 01:50 [place] # 1.3 K/mm3 (0.0-0.8) H 05/22/19 06:25 Eos # 0.9 K/mm3 (0.0-0.4) H 05/22/19 06:25 Baso # 0.0 K/mm3 (0.0-0.1) 05/22/19 06:25 Add Manual Diff Complete 05/22/19 06:25 Total Counted 100 05/22/19 06:25 Seg Neutrophils % 65.5 % (40.0-70.0) 05/22/19 06:25 Seg Neuts % (Manual) 65.0 % (40.0-70.0) 05/22/19 06:25 Band Neutrophils % 3.0 % 05/22/19 06:25 Lymphocytes % (Manual) 10.0 % (13.4-35.0) L 05/22/19 06:25 Reactive Lymphs % (Man) 0 % 05/22/19 06:25 Monocytes % (Manual) 13.0 % (0.0-7.3) H 05/22/19 06:25 Eosinophils % (Manual) 8.0 % (0.0-4.3) H 05/22/19 06:25 Basophils % (Manual) 0 % (0.0-1.8) 05/22/19 06:25 Metamyelocytes % 1.0 % 05/22/19 06:25 Myelocytes % 0 % 05/22/19 06:25 Promyelocytes % 0 % 05/22/19 06:25 Blast Cells % 0 % 05/22/19 06:25 Nucleated RBC % Not Reportable 05/22/19 06:25 Seg Neutrophils # 5.3 K/mm3 (1.8-7.7) 05/22/19 06:25 Seg Neutrophils # Man 5.6 K/mm3 (1.8-7.7) 05/22/19 06:25 Band Neutrophils # 0.3 K/mm3 05/22/19 06:25 Lymphocytes # (Manual) 0.9 K/mm3 (1.2-5.4) L 05/22/19 06:25 Abs React Lymphs (Man) 0.0 K/mm3 05/22/19 06:25 Monocytes # (Manual) 1.1 K/mm3 (0.0-0.8) H 05/22/19 06:25 Eosinophils # (Manual) 0.7 K/mm3 (0.0-0.4) H 05/22/19 06:25 Basophils # (Manual) 0.0 K/mm3 (0.0-0.1) 05/22/19 06:25 Metamyelocytes # 0.1 K/mm3 05/22/19 06:25 Myelocytes # 0.0 K/mm3 05/22/19 06:25 Promyelocytes # 0.0 K/mm3 05/22/19 06:25 Blast Cells # 0.0 K/mm3 05/22/19 06:25 WBC Morphology Not Reportable 05/22/19 06:25 Hypersegmented Neuts Not Reportable 05/22/19 06:25 Hyposegmented Neuts Not Reportable 05/22/19 06:25 Hypogranular Neuts Not Reportable 05/22/19 06:25 Smudge Cells Not Reportable 05/22/19 06:25 Toxic Granulation Not Reportable 05/22/19 06:25 Toxic Vacuolation Not Reportable 05/22/19 06:25 Dohle Bodies Not Reportable 05/22/19 06:25 Pelger-Huet Anomaly Not Reportable 05/22/19 06:25 Renea Rods Not Reportable 05/22/19 06:25 Platelet Estimate Consistent w auto 05/22/19 06:25 Clumped Platelets Not Reportable 05/22/19 06:25 Plt Clumps, EDTA Not Reportable 05/22/19 06:25 Large Platelets Not Reportable 05/22/19 06:25 Giant Platelets Not Reportable 05/22/19 06:25 Platelet Satelliting Not Reportable 05/22/19 06:25 Plt Morphology Comment Not Reportable 05/22/19 06:25 RBC Morphology Not Reportable 05/22/19 06:25 Dimorphic RBCs Not Reportable 05/22/19 06:25 Polychromasia Not Reportable 05/22/19 06:25 Hypochromasia Few 05/22/19 06:25 Poikilocytosis Not Reportable 05/22/19 06:25 Anisocytosis Not Reportable 05/22/19 06:25 Microcytosis Not Reportable 05/22/19 06:25 Macrocytosis Not Reportable 05/22/19 06:25 Spherocytes Not Reportable 05/22/19 06:25 Pappenheimer Bodies Not Reportable 05/22/19 06:25 Sickle Cells Not Reportable 05/22/19 06:25 Target Cells Not Reportable 05/22/19 06:25 Tear Drop Cells Not Reportable 05/22/19 06:25 Ovalocytes Few 05/22/19 06:25 Stomatocytes Few 05/22/19 06:25 Helmet Cells Not Reportable 05/22/19 06:25 [place] Bodies Not Reportable 05/22/19 06:25 [place] Rings Not Reportable 05/22/19 06:25 [place] Cells Not Reportable 05/22/19 06:25 Bite Cells Not Reportable 05/22/19 06:25 Crenated Cell Not Reportable 05/22/19 06:25 Elliptocytes Not Reportable 05/22/19 06:25 Acanthocytes (Spur) Not Reportable 05/22/19 06:25 Rouleaux Not Reportable 05/22/19 06:25 Hemoglobin C Crystals Not Reportable 05/22/19 06:25 Schistocytes Few 05/22/19 06:25 Malaria parasites Not Reportable 05/22/19 06:25 Syed Bodies Not Reportable 05/22/19 06:25 Hem Pathologist Commnt No 05/22/19 06:25 PT 15.4 Sec. (12.2-14.9) H 05/01/19 Unknown INR 1.23 (0.87-1.13) H 05/01/19 Unknown APTT 22.7 Sec. (24.2-36.6) L 05/01/19 Unknown POC ABG pH 7.313 (7.35-7.45) L 05/22/19 03:54 ABG pH 7.281 pH Units (7.350-7.450) L 05/20/19 05:48 POC ABG pCO2 55.0 (35-45) H 05/22/19 03:54 ABG pCO2 52.0 mm Hg 05/20/19 05:48 POC ABG pO2 87 (80-105) 05/22/19 03:54 ABG pO2 78.7 mm Hg (80.0-90.0) L 05/20/19 05:48 POC ABG HCO3 27.9 (22-26 mml/L) 05/22/19 03:54 ABG HCO3 24.0 mmol/L (20.0-26.0) 05/20/19 05:48 POC ABG Total CO2 30 (23-27mmol/L) 05/22/19 03:54 POC ABG O2 Sat 95 05/22/19 03:54 ABG O2 Saturation 94.5 % (95.0-99.0) L 05/20/19 05:48 ABG O2 Content 13.0 (0.0-44) 05/20/19 05:48 POC ABG Base Excess 2 ((-2) - (+3)mmol/L) 05/22/19 03:54 ABG Base Excess -3.0 mmol/L (-2.0-3.0) L 05/20/19 05:48 ABG Hemoglobin 9.9 gm/dl (14.0-18.0) L 05/20/19 05:48 ABG Carboxyhemoglobin 1.6 % (0.0-5.0) 05/20/19 05:48 ABG Methemoglobin 0.6 % (0.0-1.5) 05/20/19 05:48 Oxyhemoglobin 92.5 % (95.0-99.0) L 05/20/19 05:48 FiO2 50 % 05/22/19 03:54 Sodium 135 mmol/L (137-145) L 05/22/19 06:25 Potassium 5.0 mmol/L (3.6-5.0) 05/22/19 06:25 Chloride 94.3 mmol/L (98-107) L 05/22/19 06:25 Carbon Dioxide 22 mmol/L (22-30) 05/22/19 06:25 Anion Gap 24 mmol/L 05/22/19 06:25 BUN 117 mg/dL (9-20) H 05/22/19 06:25 Creatinine 7.8 mg/dL (0.8-1.5) H 05/22/19 06:25 Estimated GFR 10 ml/min 05/22/19 06:25 BUN/Creatinine Ratio 15 % 05/22/19 06:25 Glucose 92 mg/dL (75-100) 05/22/19 06:25 POC Glucose 85 (70-105) 05/22/19 12:27 Osmolality 327 Mosm/kg 05/07/19 13:45 Uric Acid 18.0 mg/dL (3.5-7.6) H 05/07/19 13:45 Calcium 8.2 mg/dL (8.4-10.2) L 05/22/19 06:25 Phosphorus 4.90 mg/dL (2.5-4.5) H 05/02/19 00:06 Magnesium 2.30 mg/dL (1.7-2.3) 05/02/19 00:06 Total Bilirubin 0.20 mg/dL (0.1-1.2) 05/10/19 05:00 AST 34 units/L (5-40) 05/10/19 05:00 ALT 35 units/L (7-56) 05/10/19 05:00 Alkaline Phosphatase 45 units/L (35-129) 05/10/19 05:00 Total Creatine Kinase 131 units/L (55-170) 05/02/19 04:41 CK-MB (CK-2) 5.2 ng/mL (0.0-4.0) H 05/02/19 04:41 CK-MB (CK-2) Rel Index 3.9 (0-4) 05/02/19 04:41 Troponin T 0.067 ng/mL (0.00-0.029) H D 05/02/19 04:41 NT-Pro-B Natriuret Pep 6831 pg/mL (0-450) H 05/01/19 Unknown Total Protein 6.1 g/dL (6.3-8.2) L 05/10/19 05:00 Albumin 2.5 g/dL (3.9-5) L 05/10/19 05:00 Albumin/Globulin Ratio 0.7 % 05/10/19 05:00 Triglycerides 173 mg/dL (2-149) H 05/17/19 Unknown Cholesterol 173 mg/dL (50-199) 05/02/19 00:06 LDL Cholesterol Direct 126 mg/dL (50-130) 05/02/19 00:06 HDL Cholesterol 18 mg/dL (40-59) L 05/02/19 00:06 Cholesterol/HDL Ratio 9.61 % 05/02/19 00:06 Procalcitonin 0.54 ng/mL (<0.15) 05/03/19 11:52 Urine Color Yellow (Yellow) 05/20/19 12:00 Urine Turbidity Cloudy (Clear) 05/20/19 12:00 Urine pH 5.0 (5.0-7.0) 05/20/19 12:00 Ur Specific [place] 1.015 (1.003-1.030) 05/20/19 12:00 Urine Protein 30 mg/dl mg/dL (Negative) 05/20/19 12:00 Urine Glucose (UA) Neg mg/dL (Negative) 05/20/19 12:00 Urine Ketones Neg mg/dL (Negative) 05/20/19 12:00 Urine Blood Lg (Negative) 05/20/19 12:00 Urine Nitrite Neg (Negative) 05/20/19 12:00 Urine Bilirubin Neg (Negative) 05/20/19 12:00 Urine Urobilinogen < 2.0 mg/dL (<2.0) 05/20/19 12:00 Ur Leukocyte Esterase Mod (Negative) 05/20/19 12:00 Urine WBC (Auto) 26.0 /HPF (0.0-6.0) H 05/20/19 12:00 Urine RBC (Auto) 83.0 /HPF (0.0-6.0) 05/20/19 12:00 Urine Bacteria (Auto) 1+ /HPF (Negative) 05/20/19 12:00 Uric Acid Crystals 3+ 05/03/19 10:55 Urine Mucus Few /HPF 05/20/19 12:00 Urine Yeast (Budding) 3+ /HPF 05/20/19 12:00 Urine Creatinine 292.8 mg/dL (0.1-20.0) H 05/07/19 22:40 Urine Sodium 11 mmol/L 05/07/19 22:40 Urine Total Protein 269 mg/dL (5-11.8) H 05/07/19 22:40 Vancomycin Trough 20.5 ug/mL (5.0-20.0) H 05/15/19 09:00 Random Vancomycin 14.0 ug/mL (0-40.0) 05/21/19 05:20 AMNA Screen Negative (Negative) 05/07/19 13:45 Hepatitis A IgM Ab Non-reactive (NonReactive) 05/07/19 13:45 Hep Bs Antigen Non-reactive (Negative) 05/07/19 13:45 Hep B Core IgM Ab Non-reactive (NonReactive) 05/07/19 13:45 Hepatitis C Antibody Non-reactive (NonReactive) 05/07/19 13:45 Active Medications - Current Medications Current Medications: Generic Name Dose Route Start Last Admin Trade Name Freq PRN Reason Stop Dose Admin Acetaminophen 650 mg 05/01/19 22:46 05/21/19 16:48 Tylenol PO 650 mg Q4H PRN Administration Pain MILD(1-3)/Fever >100.5/FREEMAN Albumin Human 25 gm 05/19/19 10:47 [place] 25% (Albumin) IV ARIANE PRN Hypotension Lipase/Protease/Amylase 1 each 05/14/19 15:01 Pancremannie Fletcher 10,500 Unit FEEDTUBE PRN PRN For Clogged Feeding Tube Dextrose 50 gm 05/01/19 20:24 D50w (25gm) Vial IV Q30MIN PRN Hypoglycemia Protocol Enoxaparin Sodium 30 mg 05/16/19 10:00 05/22/19 10:50 Enoxaparin SUB-Q 30 mg QDAY VICKEY Administration Epoetin Hugo 10,000 unit 05/19/19 10:47 Procrit IV ARIANE PRN hemodialysis Famotidine 20 mg 05/16/19 10:00 05/22/19 10:52 Pepcid PO 20 mg DAILY VICKEY Administration Hydralazine HCl 20 mg 05/13/19 08:09 05/14/19 18:09 Apresoline IV 20 mg Q4HR PRN Administration SBP >/=160 Hydrophilic Ointment 1 applic 05/01/19 21:14 Vaseline Lip Therapy TP Q2HR PRN Dry Lips Fentanyl Citrate 2,000 mcg in 100 mls @ 10.195 mls/hr 05/01/19 22:00 05/22/19 10:39 Fentanyl Drip Premix IV 2 mcg/kg/hr TITR VICKEY 20.39 mls/hr Administration Protocol 1 MCG/KG/HR Propofol 1,000 mg in 100 mls @ 7.011 mls/hr 05/03/19 04:00 05/22/19 10:39 Diprivan 10 Mg/Ml IV 10 mcg/kg/min TITR VICKEY 14.022 mls/hr Administration Protocol 5 MCG/KG/MIN Norepinephrine 4 mg in 250 mls @ 7.5 mls/hr 05/03/19 18:00 05/20/19 08:04 Levophed Drip 4 Mg/Ns 250 Ml IV 0 mcg/min TITR VICKEY 0 mls/hr Titration Protocol 2 MCG/MIN Sodium Chloride 500 mls @ 10 mls/hr 05/06/19 15:00 Nacl 0.9% 500 Ml IV DIRECT VICKEY Metronidazole 500 mg in 100 mls @ 100 mls/hr 05/11/19 14:00 05/22/19 05:21 Flagyl 500 Mg/100 Ml IV 100 mls/hr Q8HR VICKEY Administration Protocol Nicardipine HCl 50 mg/ Sodium 250 mls @ 25 mls/hr 05/13/19 10:00 05/14/19 23:12 Chloride IV 0 mg/hr TITR VICKEY 0 mls/hr Titration Protocol 5 MG/HR Cefepime HCl 2 gm in 100 mls @ 200 mls/hr 05/18/19 11:00 05/22/19 10:50 Cefepime/Ns 2 Gm/100 Ml IV 200 mls/hr Q24HR VICKEY Administration Protocol Sodium Chloride 100 mls @ 999 mls/hr 05/19/19 10:47 05/20/19 08:14 Nacl 0.9% IV 999 mls/hr ARIANE PRN Administration Hypotension Labetalol HCl 100 mg 05/14/19 14:00 05/21/19 21:43 Labetalol PO Not Given Q8HR VICKEY Levetiracetam 750 mg 05/13/19 10:00 05/22/19 10:50 Keppra PO 750 mg BID VICKEY Administration Lorazepam 2 mg 05/06/19 06:22 05/10/19 16:17 Ativan IV 2 mg Q4H PRN Administration Seizures/AGITATION Multi-Ingred Cream/Lotion/Oil/Oint 1 applic 05/01/19 21:14 Artificial Tears Ophth Oint OU Q4HR PRN Dry Eye(s) Ondansetron HCl 4 mg 05/01/19 22:46 Zofran IV Q8H PRN Nausea And Vomiting Scopolamine 1 each 05/20/19 12:00 05/20/19 12:52 Transderm-Scop TD 1 each Q72HR VICKEY Administration Simple Syrup 15 ml 05/14/19 15:01 Simple Syrup FEEDTUBE PRN PRN Hypoglycemia Simple Syrup 30 ml 05/14/19 15:01 Simple Syrup FEEDTUBE PRN PRN Hypoglycemia Sodium Bicarbonate 325 mg 05/14/19 15:01 Sodium Bicarbonate FEEDTUBE PRN PRN For Clogged Feeding Tube Sodium Chloride 10 ml 05/02/19 10:00 05/22/19 10:51 Sodium Chloride Flush Syringe 10 Ml IV 10 ml BID VICKEY Administration Sodium Chloride 10 ml 05/01/19 22:46 05/05/19 02:28 Sodium Chloride Flush Syringe 10 Ml IV 10 ml PRN PRN Administration LINE FLUSH Nutrition/Malnutrition Assess - Dietary Evaluation Nutrition/Malnutrition Findings: Nutrition Notes Start: 05/04/19 12:54 Freq: Status: Active Protocol: Document 05/21/19 10:08 LM (Rec: 05/21/19 10:26 LM [id number]) Nutrition Notes Initial or Follow up Reassessment Current Diagnosis Acute Kidney Injury,Sepsis, Respiratory Failure Current Diet Nepro 1.8 at 50 ml/hr Labs/Tests Na 137 BUN 102 Cr 7 BG 103 Pertinent Medications Propofol at 7.011 ml/hr (185 kcal) Height 6 ft 4 in Weight 261.4 kg [place] Body Weight (kg) 91.81 BMI 70.1 Weight change and time frame Wt change noted. Likely due to fluid Weight Status Morbidly Obese Subjective/Other Information Nepro running at 50 ml/hr at time of visit. Will keep flush at 150 ml q4h until Na increases. Pt received HD on 05/20. Pt tolerating TF. Percent of energy/protein needs met: 86%/43% Burn Absent Trauma Absent Current % PO Negligible Minimum of two criteria No physical signs of malnutrition #1 Nutrition Diagnosis Inadequate oral intake Diagnosis Progress(for reassessment Continues documentation) Is patient on ventilator? Yes Is Patient Ambulatory and/or Out of Bed No REE-(Collier-St. Jeor-confined to bed) 4392.636 Kcal/Kg value to use for calculation 11 Approximate Energy Requirements Using 2875 kcal/Kg Calculation Used for Recommendations Kcal/kg Additional Notes Energy needs: 2503 kcal PRO needs: 225 g (up to 2.5 g/ kg 91.81 IBW) Fluid needs: 1 ml/kcal Nutrition Intervention Change Diet Order: Continue TF Nutrition Support: Nepro 1.8 at 50 ml/hr flush 150 ml q4hr for hyponatremia flush 200 ml q4h once hyponatremia resolves Kcal 2,160 Protein (gm) 97 Fluid (mL) 872 Goal #1 TF tolerance Goal #2 Meet at least 75% kcal/PRO needs via TF Anticipated Discharge Needs: Unable to determine at this time Follow-Up By: 05/28/19 Additional Comments F/U for TF tolerance/Na lab
--- NOTE | 2019-05-22 16:29 | Progress Note ---
Assessment and Plan - Patient Problems (1) Acute kidney injury Current Visit: Yes Status: Acute Plan to address problem: Acute kidney injury now dialysis dependent worsening Baseline creatinine unknown Kidney function is worsening Chest x-ray with concern for Bibasilar haziness? Atelectasis Renal function worsened with diuresis creatinine improved from 3.5 to 3.2 to 2.4 mg/dl recent worsening in the setting of Elevated vancomycin and subsquent acute tubular injury continue hemodialysis. Repeat BMP (2) Hypercapnic respiratory failure Current Visit: Yes Status: Acute Qualifiers: Chronicity: acute on chronic Qualified Code(s): J96.22 - Acute and chronic respiratory failure with hypercapnia Plan to address problem: Acute on chronic respiratory failure with hypercapnia Patient is currently intubated chest x-ray with some concern for bibasilar haziness Given morbid obesity. Obesity hypoventilation Wean oxygen as tolerated (3) Anemia Current Visit: Yes Status: Acute Plan to address problem: Mild anemia Monitor CBC (4) Fever Current Visit: Yes Status: Acute Plan to address problem: Fever workup for infectious causes Infectious disease is following (5) Hyperkalemia Current Visit: Yes Status: Acute Plan to address problem: hyperkalemia ;resolved. Continue dialysis. Subjective Principal diagnosis: HF; acute hypoxemic resp failure, SIRS, CARLA Interval history: 34-year-old gentleman with morbid obesity, found with cyanosis difficulty with breathing and brought to the emergency room he required intubation review of systems unobtainable patient remains intubated and FiO2 100% he has had worsening renal function nephrology consulted for this. He was subsequently found to have a fever infectious diseases is followingshe initially related improvement. Acute kidney injury, subsequent worsening in the setting of elevated vancomycin levels Patient seen remains intubated and sedated Minimal urine output Has lower extremity edema We'll repeat hemodialysis today Diuretics when necessary Objective - Vital Signs Vital signs: Vital Signs - 12hr 05/22/19 05/22/19 05/22/19 04:30 04:45 05:00 Temperature Pulse Rate 100 H 96 H 93 H Pulse Rate [ From Monitor] Respiratory 12 7 L 0 L Rate Blood Pressure 108/36 102/31 107/39 O2 Sat by Pulse 95 95 97 Oximetry 05/22/19 05/22/19 05/22/19 05:15 05:30 05:45 Temperature Pulse Rate 104 H 108 H Pulse Rate [ From Monitor] Respiratory 19 19 Rate Blood Pressure 122/62 122/59 121/54 O2 Sat by Pulse 95 94 Oximetry 05/22/19 05/22/19 05/22/19 06:00 06:15 06:30 Temperature Pulse Rate 108 H 107 H 109 H Pulse Rate [ From Monitor] Respiratory 22 16 29 H Rate Blood Pressure 114/43 117/55 121/61 O2 Sat by Pulse 94 95 93 Oximetry 05/22/19 05/22/19 05/22/19 06:45 07:00 07:15 Temperature Pulse Rate 110 H 109 H 110 H Pulse Rate [ From Monitor] Respiratory 26 H 22 32 H Rate Blood Pressure 125/54 137/68 139/61 O2 Sat by Pulse 93 91 89 Oximetry 05/22/19 05/22/19 05/22/19 07:30 07:45 08:00 Temperature 100.4 F H Pulse Rate 107 H 109 H 109 H Pulse Rate [ 109 H From Monitor] Respiratory 25 H 29 H 21 Rate Blood Pressure 129/63 138/67 134/65 O2 Sat by Pulse 90 90 92 Oximetry 05/22/19 05/22/19 05/22/19 08:15 08:30 08:45 Temperature Pulse Rate 109 H 106 H 109 H Pulse Rate [ From Monitor] Respiratory 28 H 17 24 Rate Blood Pressure 131/62 127/58 129/62 O2 Sat by Pulse 89 95 93 Oximetry 05/22/19 05/22/19 05/22/19 09:00 09:15 09:30 Temperature Pulse Rate 109 H 109 H 112 H Pulse Rate [ From Monitor] Respiratory 26 H 26 H 31 H Rate Blood Pressure 133/65 127/64 125/56 O2 Sat by Pulse 93 92 91 Oximetry 05/22/19 05/22/19 05/22/19 09:45 10:00 10:15 Temperature Pulse Rate 113 H 114 H 113 H Pulse Rate [ From Monitor] Respiratory 36 H 21 31 H Rate Blood Pressure 129/57 135/69 127/59 O2 Sat by Pulse 94 93 100 Oximetry 05/22/19 05/22/19 05/22/19 10:30 10:45 11:00 Temperature Pulse Rate 108 H 110 H 110 H Pulse Rate [ From Monitor] Respiratory 30 H 28 H 28 H Rate Blood Pressure 119/57 118/55 124/52 O2 Sat by Pulse 93 93 Oximetry 05/22/19 05/22/19 05/22/19 11:15 11:30 11:45 Temperature Pulse Rate 104 H 107 H 107 H Pulse Rate [ From Monitor] Respiratory 25 H 22 18 Rate Blood Pressure 122/53 126/66 124/61 O2 Sat by Pulse 95 96 96 Oximetry 05/22/19 05/22/19 05/22/19 12:00 12:15 12:30 Temperature 101.1 F H Pulse Rate 105 H 105 H 102 H Pulse Rate [ From Monitor] Respiratory 21 15 19 Rate Blood Pressure 114/57 119/58 115/50 O2 Sat by Pulse 95 96 97 Oximetry 05/22/19 05/22/19 05/22/19 12:31 12:45 13:00 Temperature Pulse Rate 119 H 108 H 104 H Pulse Rate [ From Monitor] Respiratory 26 H 26 H Rate Blood Pressure 139/61 128/60 119/51 O2 Sat by Pulse 96 92 93 Oximetry 05/22/19 05/22/19 05/22/19 13:15 13:30 13:45 Temperature Pulse Rate 104 H 104 H 106 H Pulse Rate [ From Monitor] Respiratory 24 19 16 Rate Blood Pressure 124/57 123/61 122/61 O2 Sat by Pulse 93 95 95 Oximetry 05/22/19 05/22/19 05/22/19 14:00 14:15 14:30 Temperature Pulse Rate 102 H 107 H 112 H Pulse Rate [ From Monitor] Respiratory 20 19 34 H Rate Blood Pressure 116/52 127/68 120/60 O2 Sat by Pulse 94 96 93 Oximetry 05/22/19 05/22/19 05/22/19 14:45 14:52 15:00 Temperature Pulse Rate 110 H 111 H 110 H Pulse Rate [ From Monitor] Respiratory 33 H 29 H Rate Blood Pressure 125/56 125/56 124/57 O2 Sat by Pulse 92 92 Oximetry 05/22/19 05/22/19 05/22/19 15:15 15:30 15:45 Temperature Pulse Rate 108 H 110 H 108 H Pulse Rate [ From Monitor] Respiratory 27 H 31 H 27 H Rate Blood Pressure 116/57 123/57 120/61 O2 Sat by Pulse 92 91 95 Oximetry 05/22/19 16:13 Temperature Pulse Rate 108 H Pulse Rate [ From Monitor] Respiratory Rate Blood Pressure 120/61 O2 Sat by Pulse 95 Oximetry - General Appearance General appearance: obese, sedated on ventilator EENT: ATNC, PERRL Neck: no JVD Respiratory: Present: Decreased Breath Sounds Cardiology: regular, S1S2 Gastrointestinal: normal, normoactive bowel sounds Integumentary: no rash Neurologic: alert and oriented x3, CN 3-12 intact Psychiatric: mood/affect appropriate - Lab 05/22/19 06:25 05/22/19 06:25 Most recent lab results ABG pH 7.281 pH Units (7.350-7.450) L 05/20/19 05:48 ABG pCO2 52.0 mm Hg 05/20/19 05:48 ABG pO2 78.7 mm Hg (80.0-90.0) L 05/20/19 05:48 ABG HCO3 24.0 mmol/L (20.0-26.0) 05/20/19 05:48 ABG O2 Saturation 94.5 % (95.0-99.0) L 05/20/19 05:48 Calcium 8.2 mg/dL (8.4-10.2) L 05/22/19 06:25 Phosphorus 4.90 mg/dL (2.5-4.5) H 05/02/19 00:06 Magnesium 2.30 mg/dL (1.7-2.3) 05/02/19 00:06 Urine Creatinine 292.8 mg/dL (0.1-20.0) H 05/07/19 22:40 Urine Sodium 11 mmol/L 05/07/19 22:40 Urine Total Protein 269 mg/dL (5-11.8) H 05/07/19 22:40 Medications & Allergies - Medications Allergies/Adverse Reactions: Allergies No Known Allergies Allergy (Verified 05/01/19 20:27) Home Medications: Home Medications Medication Instructions Recorded Confirmed Last Taken Type No Known Home Medications [No 05/03/19 05/03/19 Unknown History Reported Home Medications] Active Medications: Generic Name Dose Route Start Last Admin Trade Name Freq PRN Reason Stop Dose Admin Acetaminophen 650 mg 05/01/19 22:46 05/21/19 16:48 Tylenol PO 650 mg Q4H PRN Administration Pain MILD(1-3)/Fever >100.5/FREEMAN Albumin Human 25 gm 05/19/19 10:47 Alburx 25% (Albumin) IV ARIANE PRN Hypotension Lipase/Protease/Amylase 1 each 05/14/19 15:[address] 10,500 Unit FEEDTUBE PRN PRN For Clogged Feeding Tube Dextrose 50 gm 05/01/19 20:24 D50w (25gm) Vial IV Q30MIN PRN Hypoglycemia Protocol Enoxaparin Sodium 30 mg 05/16/19 10:00 05/22/19 10:50 Enoxaparin SUB-Q 30 mg QDAY VICKEY Administration Epoetin Hugo 10,000 unit 05/19/19 10:47 Procrit IV ARIANE PRN hemodialysis Famotidine 20 mg 05/16/19 10:00 05/22/19 10:52 Pepcid PO 20 mg DAILY VICKEY Administration Hydralazine HCl 20 mg 05/13/19 08:09 05/14/19 18:09 Apresoline IV 20 mg Q4HR PRN Administration SBP >/=160 Hydrophilic Ointment 1 applic 05/01/19 21:14 Vaseline Lip Therapy TP Q2HR PRN Dry Lips Fentanyl Citrate 2,000 mcg in 100 mls @ 10.195 mls/hr 05/01/19 22:00 05/22/19 14:41 Fentanyl Drip Premix IV 2 mcg/kg/hr TITR VIKCEY 20.39 mls/hr Administration Protocol 1 MCG/KG/HR Propofol 1,000 mg in 100 mls @ 7.011 mls/hr 05/03/19 04:00 05/22/19 10:39 Diprivan 10 Mg/Ml IV 10 mcg/kg/min TITR VICKEY 14.022 mls/hr Administration Protocol 5 MCG/KG/MIN Norepinephrine 4 mg in 250 mls @ 7.5 mls/hr 05/03/19 18:00 05/20/19 08:04 Levophed Drip 4 Mg/Ns 250 Ml IV 0 mcg/min TITR VICKEY 0 mls/hr Titration Protocol 2 MCG/MIN Sodium Chloride 500 mls @ 10 mls/hr 05/06/19 15:00 Nacl 0.9% 500 Ml IV DIRECT VICKEY Metronidazole 500 mg in 100 mls @ 100 mls/hr 05/11/19 14:00 05/22/19 14:51 Flagyl 500 Mg/100 Ml IV 100 mls/hr Q8HR VICKEY Administration Protocol Nicardipine HCl 50 mg/ Sodium 250 mls @ 25 mls/hr 05/13/19 10:00 05/14/19 23:12 Chloride IV 0 mg/hr TITR VICKEY 0 mls/hr Titration Protocol 5 MG/HR Cefepime HCl 2 gm in 100 mls @ 200 mls/hr 05/18/19 11:00 05/22/19 10:50 Cefepime/Ns 2 Gm/100 Ml IV 200 mls/hr Q24HR VICKEY Administration Protocol Sodium Chloride 100 mls @ 999 mls/hr 05/19/19 10:47 05/20/19 08:14 Nacl 0.9% IV 999 mls/hr ARIANE PRN Administration Hypotension Labetalol HCl 100 mg 05/14/19 14:00 05/22/19 14:52 Labetalol PO Not Given Q8HR VICKEY Levetiracetam 750 mg 05/13/19 10:00 05/22/19 10:50 Keppra PO 750 mg BID VICKEY Administration Lorazepam 2 mg 05/06/19 06:22 05/10/19 16:17 Ativan IV 2 mg Q4H PRN Administration Seizures/AGITATION Multi-Ingred Cream/Lotion/Oil/Oint 1 applic 05/01/19 21:14 Artificial Tears Ophth Oint OU Q4HR PRN Dry Eye(s) Ondansetron HCl 4 mg 05/01/19 22:46 Zofran IV Q8H PRN Nausea And Vomiting Scopolamine 1 each 05/20/19 12:00 05/20/19 12:52 Transderm-Scop TD 1 each Q72HR VICKEY Administration Simple Syrup 15 ml 05/14/19 15:01 Simple Syrup FEEDTUBE PRN PRN Hypoglycemia Simple Syrup 30 ml 05/14/19 15:01 Simple Syrup FEEDTUBE PRN PRN Hypoglycemia Sodium Bicarbonate 325 mg 05/14/19 15:01 Sodium Bicarbonate FEEDTUBE PRN PRN For Clogged Feeding Tube Sodium Chloride 10 ml 05/02/19 10:00 05/22/19 10:51 Sodium Chloride Flush Syringe 10 Ml IV 10 ml BID VICKEY Administration Sodium Chloride 10 ml 05/01/19 22:46 05/05/19 02:28 Sodium Chloride Flush Syringe 10 Ml IV 10 ml PRN PRN Administration LINE FLUSH
[2019-05-23] MEDS: levETIRAcetam 500 MG/5 ML ORAL LIQD PO SCH ×3 (00:52→21:47)
[2019-05-23] MEDS: metroNIDAZOLE/NS 500 MG/100 ML 500 MG/100 ML BAG IV SCH ×4 (00:53→21:47)
[2019-05-23] MEDS: fentaNYL DRIP Premix 2,000 MCG/100 ML BAG IV SCH ×6 (01:03→22:37)
[2019-05-23] MEDS: CEFEPIME/NS 2 GM/100 ML 2 GM/100 ML BAG IV SCH (10:04)
[2019-05-23] MEDS: ENOXAPARIN 30 MG/0.3 ML INJ SUB-Q SCH (10:04)
[2019-05-23] MEDS: FAMOTIDINE 20 MG TAB PO SCH (10:04)
--- NOTE | 2019-05-23 10:25 | Progress Note ---
Assessment and Plan Assessment and plan: Patient is a 34-year-old man who is morbidly obese (575 lbs) with unknown medical history who presented to [facility] ED on 05/01/2019 (I started seeing patient for the first time on 05/20/19, Day 19) with SOB. He was placed on BIPAP and failed. He had cardiac arrest in ED and was Intubated in ED. On 05/12/19- ETT exchanged due to hypoxia. In the chart there is a report that he has undiagnosis LANODN and using someone else CPAP. 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 Acute hypoxic and hypercapenic respiratory failure on vent >96hrs Status post intubation, continue sedation, consulted pulmonary And input noted still on high PEEP, making Tracheostomy difficult to attempt. Ham Curer managing. Obesity Hypoventilation syndrome Patient previously on LANDON Management at home but per discussion with family, was non complaint Sepsis- not present on admission -On abx, ID following. LP when able ?Meningitis considering recurrent fever. Doubt, but ID following Acylovir stopped ?seizure activity -Meninigitis prophy -Neurology consult -EEG-negative Acute CHF, new onset, diastolic Diurese with IV lasix held, on HD now monitor I/O, daily weights Cardiology following. Added beta-jenny, no TIM inhibitor secondary to renal insufficiency Hypertension malignant Start antihypertensive, monitor blood pressure IV hydralazine as needed for further control Acute kidney injury due to ATN ?Vancomycin toxicity, Held. Monitor Nephrology following and input noted. Han for strict I/Os HD per nephrology Hyperkalemia-Kaylexate Passive congestive hepatic syndrome -LFT elevated but trending down -Noted Gallbladder sludge DVT prophylaxis with Lovenox Morbid obesity Full code status. Prognosis guarded +han removed +ETT +NGT +Fentanyl; and Rosemarie RAMÍREZE PIcc off levaphed since morning 05/20/2019 receiving HD drool, with increased secretion, scopolamine patch helped ?trach consideration, intubated since admission 05/01/19==>high PEEP, ?PEG consideration Still febrile, I called his mother Magalis Jay at [phone] no family present History Interval history: Patient was seen and examined. Follow-up on current diagnosis of Respiratory failure. Overnight uneventful. Imaging, nursing note, chart, labs and old chart reviewed. Still intubated and sedated Hospitalist Physical - Physical exam Narrative exam: Gen: critically ill, bmi 70.1 sedated HEENT: NCAT, OP ETT in place Neck: supple, no adenopathy, no thyromegaly, no JVD CVS/Heart: tachycardiac, normal S1S2, pulses present bilaterally Chest/Lungs: tachypneic, Symmetrical chest expansion, good air entry bilaterally GI/Abdomen: soft, NTND, good bowel sounds, no guarding or rebound : scrotal edema, unable to see his penis Extermity/Skin: good skin turgor MSK: sedated Neuro: sedated Psych: sedated - Constitutional Vitals: Temp Pulse Resp BP Pulse Ox 101.2 F H 97 H 25 H 115/52 90 05/23/19 08:00 05/23/19 09:00 05/23/19 09:00 05/23/19 09:00 05/23/19 09:00 General appearance: Present: no acute distress Results - Labs CBC & Chem 7: 05/22/19 06:25 05/22/19 06:25 Labs: Laboratory Last Values WBC 8.6 K/mm3 (4.5-11.0) 05/22/19 06:25 RBC 3.22 M/mm3 (3.65-5.03) L 05/22/19 06:25 Hgb 8.6 gm/dl (11.8-15.2) L 05/22/19 06:25 Hct 27.0 % (35.5-45.6) L 05/22/19 06:25 MCV 84 fl (84-94) 05/22/19 06:25 MCH 27 pg (28-32) L 05/22/19 06:25 MCHC 32 % (32-34) 05/22/19 06:25 RDW 17.5 % (13.2-15.2) H 05/22/19 06:25 Plt Count 347 K/mm3 (140-440) 05/22/19 06:25 Lymph % (Auto) 7.9 % (13.4-35.0) L 05/18/19 01:50 [place] % (Auto) 16.2 % (0.0-7.3) H 05/22/19 06:25 Eos % (Auto) 10.8 % (0.0-4.3) H 05/22/19 06:25 Baso % (Auto) 0.2 % (0.0-1.8) 05/18/19 01:50 Lymph # 0.7 K/mm3 (1.2-5.4) L 05/18/19 01:50 [place] # 1.3 K/mm3 (0.0-0.8) H 05/22/19 06:25 Eos # 0.9 K/mm3 (0.0-0.4) H 05/22/19 06:25 Baso # 0.0 K/mm3 (0.0-0.1) 05/22/19 06:25 Add Manual Diff Complete 05/22/19 06:25 Total Counted 100 05/22/19 06:25 Seg Neutrophils % 65.5 % (40.0-70.0) 05/22/19 06:25 Seg Neuts % (Manual) 65.0 % (40.0-70.0) 05/22/19 06:25 Band Neutrophils % 3.0 % 05/22/19 06:25 Lymphocytes % (Manual) 10.0 % (13.4-35.0) L 05/22/19 06:25 Reactive Lymphs % (Man) 0 % 05/22/19 06:25 Monocytes % (Manual) 13.0 % (0.0-7.3) H 05/22/19 06:25 Eosinophils % (Manual) 8.0 % (0.0-4.3) H 05/22/19 06:25 Basophils % (Manual) 0 % (0.0-1.8) 05/22/19 06:25 Metamyelocytes % 1.0 % 05/22/19 06:25 Myelocytes % 0 % 05/22/19 06:25 Promyelocytes % 0 % 05/22/19 06:25 Blast Cells % 0 % 05/22/19 06:25 Nucleated RBC % Not Reportable 05/22/19 06:25 Seg Neutrophils # 5.3 K/mm3 (1.8-7.7) 05/22/19 06:25 Seg Neutrophils # Man 5.6 K/mm3 (1.8-7.7) 05/22/19 06:25 Band Neutrophils # 0.3 K/mm3 05/22/19 06:25 Lymphocytes # (Manual) 0.9 K/mm3 (1.2-5.4) L 05/22/19 06:25 Abs React Lymphs (Man) 0.0 K/mm3 05/22/19 06:25 Monocytes # (Manual) 1.1 K/mm3 (0.0-0.8) H 05/22/19 06:25 Eosinophils # (Manual) 0.7 K/mm3 (0.0-0.4) H 05/22/19 06:25 Basophils # (Manual) 0.0 K/mm3 (0.0-0.1) 05/22/19 06:25 Metamyelocytes # 0.1 K/mm3 05/22/19 06:25 Myelocytes # 0.0 K/mm3 05/22/19 06:25 Promyelocytes # 0.0 K/mm3 05/22/19 06:25 Blast Cells # 0.0 K/mm3 05/22/19 06:25 WBC Morphology Not Reportable 05/22/19 06:25 Hypersegmented Neuts Not Reportable 05/22/19 06:25 Hyposegmented Neuts Not Reportable 05/22/19 06:25 Hypogranular Neuts Not Reportable 05/22/19 06:25 Smudge Cells Not Reportable 05/22/19 06:25 Toxic Granulation Not Reportable 05/22/19 06:25 Toxic Vacuolation Not Reportable 05/22/19 06:25 Dohle Bodies Not Reportable 05/22/19 06:25 Pelger-Huet Anomaly Not Reportable 05/22/19 06:25 Renea Rods Not Reportable 05/22/19 06:25 Platelet Estimate Consistent w auto 05/22/19 06:25 Clumped Platelets Not Reportable 05/22/19 06:25 Plt Clumps, EDTA Not Reportable 05/22/19 06:25 Large Platelets Not Reportable 05/22/19 06:25 Giant Platelets Not Reportable 05/22/19 06:25 Platelet Satelliting Not Reportable 05/22/19 06:25 Plt Morphology Comment Not Reportable 05/22/19 06:25 RBC Morphology Not Reportable 05/22/19 06:25 Dimorphic RBCs Not Reportable 05/22/19 06:25 Polychromasia Not Reportable 05/22/19 06:25 Hypochromasia Few 05/22/19 06:25 Poikilocytosis Not Reportable 05/22/19 06:25 Anisocytosis Not Reportable 05/22/19 06:25 Microcytosis Not Reportable 05/22/19 06:25 Macrocytosis Not Reportable 05/22/19 06:25 Spherocytes Not Reportable 05/22/19 06:25 Pappenheimer Bodies Not Reportable 05/22/19 06:25 Sickle Cells Not Reportable 05/22/19 06:25 Target Cells Not Reportable 05/22/19 06:25 Tear Drop Cells Not Reportable 05/22/19 06:25 Ovalocytes Few 05/22/19 06:25 Stomatocytes Few 05/22/19 06:25 Helmet Cells Not Reportable 05/22/19 06:25 [place] Bodies Not Reportable 05/22/19 06:25 [place] Rings Not Reportable 05/22/19 06:25 [place] Cells Not Reportable 05/22/19 06:25 Bite Cells Not Reportable 05/22/19 06:25 Crenated Cell Not Reportable 05/22/19 06:25 Elliptocytes Not Reportable 05/22/19 06:25 Acanthocytes (Spur) Not Reportable 05/22/19 06:25 Rouleaux Not Reportable 05/22/19 06:25 Hemoglobin C Crystals Not Reportable 05/22/19 06:25 Schistocytes Few 05/22/19 06:25 Malaria parasites Not Reportable 05/22/19 06:25 Syed Bodies Not Reportable 05/22/19 06:25 Hem Pathologist Commnt No 05/22/19 06:25 PT 15.4 Sec. (12.2-14.9) H 05/01/19 Unknown INR 1.23 (0.87-1.13) H 05/01/19 Unknown APTT 22.7 Sec. (24.2-36.6) L 05/01/19 Unknown POC ABG pH 7.367 (7.35-7.45) 05/23/19 05:21 ABG pH 7.281 pH Units (7.350-7.450) L 05/20/19 05:48 POC ABG pCO2 49.7 (35-45) H 05/23/19 05:21 ABG pCO2 52.0 mm Hg 05/20/19 05:48 POC ABG pO2 73 (80-105) L 05/23/19 05:21 ABG pO2 78.7 mm Hg (80.0-90.0) L 05/20/19 05:48 POC ABG HCO3 28.6 (22-26 mml/L) 05/23/19 05:21 ABG HCO3 24.0 mmol/L (20.0-26.0) 05/20/19 05:48 POC ABG Total CO2 30 (23-27mmol/L) 05/23/19 05:21 POC ABG O2 Sat 94 05/23/19 05:21 ABG O2 Saturation 94.5 % (95.0-99.0) L 05/20/19 05:48 ABG O2 Content 13.0 (0.0-44) 05/20/19 05:48 POC ABG Base Excess 3 ((-2) - (+3)mmol/L) 05/23/19 05:21 ABG Base Excess -3.0 mmol/L (-2.0-3.0) L 05/20/19 05:48 ABG Hemoglobin 9.9 gm/dl (14.0-18.0) L 05/20/19 05:48 ABG Carboxyhemoglobin 1.6 % (0.0-5.0) 05/20/19 05:48 ABG Methemoglobin 0.6 % (0.0-1.5) 05/20/19 05:48 Oxyhemoglobin 92.5 % (95.0-99.0) L 05/20/19 05:48 FiO2 50 % 05/23/19 05:21 Sodium 135 mmol/L (137-145) L 05/22/19 06:25 Potassium 5.0 mmol/L (3.6-5.0) 05/22/19 06:25 Chloride 94.3 mmol/L (98-107) L 05/22/19 06:25 Carbon Dioxide 22 mmol/L (22-30) 05/22/19 06:25 Anion Gap 24 mmol/L 05/22/19 06:25 BUN 117 mg/dL (9-20) H 05/22/19 06:25 Creatinine 7.8 mg/dL (0.8-1.5) H 05/22/19 06:25 Estimated GFR 10 ml/min 05/22/19 06:25 BUN/Creatinine Ratio 15 % 05/22/19 06:25 Glucose 92 mg/dL (75-100) 05/22/19 06:25 POC Glucose 92 (70-105) 05/23/19 04:12 Osmolality 327 Mosm/kg 05/07/19 13:45 Uric Acid 18.0 mg/dL (3.5-7.6) H 05/07/19 13:45 Calcium 8.2 mg/dL (8.4-10.2) L 05/22/19 06:25 Phosphorus 4.90 mg/dL (2.5-4.5) H 05/02/19 00:06 Magnesium 2.30 mg/dL (1.7-2.3) 05/02/19 00:06 Total Bilirubin 0.20 mg/dL (0.1-1.2) 05/10/19 05:00 AST 34 units/L (5-40) 05/10/19 05:00 ALT 35 units/L (7-56) 05/10/19 05:00 Alkaline Phosphatase 45 units/L (35-129) 05/10/19 05:00 Total Creatine Kinase 131 units/L (55-170) 05/02/19 04:41 CK-MB (CK-2) 5.2 ng/mL (0.0-4.0) H 05/02/19 04:41 CK-MB (CK-2) Rel Index 3.9 (0-4) 05/02/19 04:41 Troponin T 0.067 ng/mL (0.00-0.029) H D 05/02/19 04:41 NT-Pro-B Natriuret Pep 6831 pg/mL (0-450) H 05/01/19 Unknown Total Protein 6.1 g/dL (6.3-8.2) L 05/10/19 05:00 Albumin 2.5 g/dL (3.9-5) L 05/10/19 05:00 Albumin/Globulin Ratio 0.7 % 05/10/19 05:00 Triglycerides 173 mg/dL (2-149) H 05/17/19 Unknown Cholesterol 173 mg/dL (50-199) 05/02/19 00:06 LDL Cholesterol Direct 126 mg/dL (50-130) 05/02/19 00:06 HDL Cholesterol 18 mg/dL (40-59) L 05/02/19 00:06 Cholesterol/HDL Ratio 9.61 % 05/02/19 00:06 Procalcitonin 0.54 ng/mL (<0.15) 05/03/19 11:52 Urine Color Yellow (Yellow) 05/20/19 12:00 Urine Turbidity Cloudy (Clear) 05/20/19 12:00 Urine pH 5.0 (5.0-7.0) 05/20/19 12:00 Ur Specific [place] 1.015 (1.003-1.030) 05/20/19 12:00 Urine Protein 30 mg/dl mg/dL (Negative) 05/20/19 12:00 Urine Glucose (UA) Neg mg/dL (Negative) 05/20/19 12:00 Urine Ketones Neg mg/dL (Negative) 05/20/19 12:00 Urine Blood Lg (Negative) 05/20/19 12:00 Urine Nitrite Neg (Negative) 05/20/19 12:00 Urine Bilirubin Neg (Negative) 05/20/19 12:00 Urine Urobilinogen < 2.0 mg/dL (<2.0) 05/20/19 12:00 Ur Leukocyte Esterase Mod (Negative) 05/20/19 12:00 Urine WBC (Auto) 26.0 /HPF (0.0-6.0) H 05/20/19 12:00 Urine RBC (Auto) 83.0 /HPF (0.0-6.0) 05/20/19 12:00 Urine Bacteria (Auto) 1+ /HPF (Negative) 05/20/19 12:00 Uric Acid Crystals 3+ 05/03/19 10:55 Urine Mucus Few /HPF 05/20/19 12:00 Urine Yeast (Budding) 3+ /HPF 05/20/19 12:00 Urine Creatinine 292.8 mg/dL (0.1-20.0) H 05/07/19 22:40 Urine Sodium 11 mmol/L 05/07/19 22:40 Urine Total Protein 269 mg/dL (5-11.8) H 05/07/19 22:40 Vancomycin Trough 20.5 ug/mL (5.0-20.0) H 05/15/19 09:00 Random Vancomycin 14.0 ug/mL (0-40.0) 05/21/19 05:20 AMNA Screen Negative (Negative) 05/07/19 13:45 Hepatitis A IgM Ab Non-reactive (NonReactive) 05/07/19 13:45 Hep Bs Antigen Non-reactive (Negative) 05/07/19 13:45 Hep B Core IgM Ab Non-reactive (NonReactive) 05/07/19 13:45 Hepatitis C Antibody Non-reactive (NonReactive) 05/07/19 13:45 Active Medications - Current Medications Current Medications: Generic Name Dose Route Start Last Admin Trade Name Freq PRN Reason Stop Dose Admin Acetaminophen 650 mg 05/01/19 22:46 05/21/19 16:48 Tylenol PO 650 mg Q4H PRN Administration Pain MILD(1-3)/Fever >100.5/FREEMAN Albumin Human 25 gm 05/19/19 10:47 Alburx 25% (Albumin) IV ARIANE PRN Hypotension Lipase/Protease/Amylase 1 each 05/14/19 15:01 Pancremannie Fletcher 10,500 Unit FEEDTUBE PRN PRN For Clogged Feeding Tube Dextrose 50 gm 05/01/19 20:24 D50w (25gm) Vial IV Q30MIN PRN Hypoglycemia Protocol Enoxaparin Sodium 30 mg 05/16/19 10:00 05/23/19 10:04 Enoxaparin SUB-Q 30 mg QDAY VICKEY Administration Epoetin Hugo 10,000 unit 05/19/19 10:47 Procrit IV ARIANE PRN hemodialysis Famotidine 20 mg 05/16/19 10:00 05/23/19 10:04 Pepcid PO 20 mg DAILY VICKEY Administration Hydralazine HCl 20 mg 05/13/19 08:09 05/14/19 18:09 Apresoline IV 20 mg Q4HR PRN Administration SBP >/=160 Hydrophilic Ointment 1 applic 05/01/19 21:14 Vaseline Lip Therapy TP Q2HR PRN Dry Lips Fentanyl Citrate 2,000 mcg in 100 mls @ 10.195 mls/hr 05/01/19 22:00 05/23/19 06:30 Fentanyl Drip Premix IV 2 mcg/kg/hr TITR VICKEY 20.39 mls/hr Administration Protocol 1 MCG/KG/HR Propofol 1,000 mg in 100 mls @ 7.011 mls/hr 05/03/19 04:00 05/23/19 06:29 Diprivan 10 Mg/Ml IV 10 mcg/kg/min TITR VICKEY 14.022 mls/hr Administration Protocol 5 MCG/KG/MIN Norepinephrine 4 mg in 250 mls @ 7.5 mls/hr 05/03/19 18:00 05/20/19 08:04 Levophed Drip 4 Mg/Ns 250 Ml IV 0 mcg/min TITR VICKEY 0 mls/hr Titration Protocol 2 MCG/MIN Sodium Chloride 500 mls @ 10 mls/hr 05/06/19 15:00 Nacl 0.9% 500 Ml IV DIRECT VICKEY Metronidazole 500 mg in 100 mls @ 100 mls/hr 05/11/19 14:00 05/23/19 06:37 Flagyl 500 Mg/100 Ml IV 100 mls/hr Q8HR VICKEY Administration Protocol Nicardipine HCl 50 mg/ Sodium 250 mls @ 25 mls/hr 05/13/19 10:00 05/14/19 23:12 Chloride IV 0 mg/hr TITR VICKEY 0 mls/hr Titration Protocol 5 MG/HR Cefepime HCl 2 gm in 100 mls @ 200 mls/hr 05/18/19 11:00 05/23/19 10:04 Cefepime/Ns 2 Gm/100 Ml IV 200 mls/hr Q24HR VICKEY Administration Protocol Sodium Chloride 100 mls @ 999 mls/hr 05/19/19 10:47 05/20/19 08:14 Nacl 0.9% IV 999 mls/hr ARIANE PRN Administration Hypotension Labetalol HCl 100 mg 05/14/19 14:00 05/23/19 06:36 Labetalol PO 100 mg Q8HR VICKEY Administration Levetiracetam 750 mg 05/13/19 10:00 05/23/19 10:03 Keppra PO 750 mg BID VICKEY Administration Lorazepam 2 mg 05/06/19 06:22 05/10/19 16:17 Ativan IV 2 mg Q4H PRN Administration Seizures/AGITATION Multi-Ingred Cream/Lotion/Oil/Oint 1 applic 05/01/19 21:14 Artificial Tears Ophth Oint OU Q4HR PRN Dry Eye(s) Ondansetron HCl 4 mg 05/01/19 22:46 Zofran IV Q8H PRN Nausea And Vomiting Scopolamine 1 each 05/20/19 12:00 05/20/19 12:52 Transderm-Scop TD 1 each Q72HR VICKEY Administration Simple Syrup 15 ml 05/14/19 15:01 Simple Syrup FEEDTUBE PRN PRN Hypoglycemia Simple Syrup 30 ml 05/14/19 15:01 Simple Syrup FEEDTUBE PRN PRN Hypoglycemia Sodium Bicarbonate 325 mg 05/14/19 15:01 Sodium Bicarbonate FEEDTUBE PRN PRN For Clogged Feeding Tube Sodium Chloride 10 ml 05/02/19 10:00 05/23/19 10:05 Sodium Chloride Flush Syringe 10 Ml IV 10 ml BID VICKEY Administration Sodium Chloride 10 ml 05/01/19 22:46 05/05/19 02:28 Sodium Chloride Flush Syringe 10 Ml IV 10 ml PRN PRN Administration LINE FLUSH Nutrition/Malnutrition Assess - Dietary Evaluation Nutrition/Malnutrition Findings: Nutrition Notes Start: 05/04/19 12:54 Freq: Status: Active Protocol: Document 05/21/19 10:08 LM (Rec: 05/21/19 10:26 LM [id number]) Nutrition Notes Initial or Follow up Reassessment Current Diagnosis Acute Kidney Injury,Sepsis, Respiratory Failure Current Diet Nepro 1.8 at 50 ml/hr Labs/Tests Na 137 BUN 102 Cr 7 BG 103 Pertinent Medications Propofol at 7.011 ml/hr (185 kcal) Height 6 ft 4 in Weight 261.4 kg [place] Body Weight (kg) 91.81 BMI 70.1 Weight change and time frame Wt change noted. Likely due to fluid Weight Status Morbidly Obese Subjective/Other Information Nepro running at 50 ml/hr at time of visit. Will keep flush at 150 ml q4h until Na increases. Pt received HD on 05/20. Pt tolerating TF. Percent of energy/protein needs met: 86%/43% Burn Absent Trauma Absent Current % PO Negligible Minimum of two criteria No physical signs of malnutrition #1 Nutrition Diagnosis Inadequate oral intake Diagnosis Progress(for reassessment Continues documentation) Is patient on ventilator? Yes Is Patient Ambulatory and/or Out of Bed No [facility]EE[facility] 4392.636 Kcal/Kg value to use for calculation 11 Approximate Energy Requirements Using 2875 kcal/Kg Calculation Used for Recommendations Kcal/kg Additional Notes Energy needs: 2503 kcal PRO needs: 225 g (up to 2.5 g/ kg 91.81 IBW) Fluid needs: 1 ml/kcal Nutrition Intervention Change Diet Order: Continue TF Nutrition Support: Nepro 1.8 at 50 ml/hr flush 150 ml q4hr for hyponatremia flush 200 ml q4h once hyponatremia resolves Kcal 2,160 Protein (gm) 97 Fluid (mL) 872 Goal #1 TF tolerance Goal #2 Meet at least 75% kcal/PRO needs via TF Anticipated Discharge Needs: Unable to determine at this time Follow-Up By: 05/28/19 Additional Comments F/U for TF tolerance/Na lab
--- NOTE | 2019-05-23 14:22 | Progress Note ---
Assessment and Plan - Patient Problems (1) Acute kidney injury Current Visit: Yes Status: Acute Plan to address problem: Acute kidney injury now dialysis dependent worsening Baseline creatinine unknown Kidney function is worsening Chest x-ray with concern for Bibasilar haziness? Atelectasis Renal function worsened with diuresis creatinine improved from 3.5 to 3.2 to 2.4 mg/dl recent worsening in the setting of Elevated vancomycin and subsquent acute tubular injury continue hemodialysis. Repeat BMP (2) Hypercapnic respiratory failure Current Visit: Yes Status: Acute Qualifiers: Chronicity: acute on chronic Qualified Code(s): J96.22 - Acute and chronic respiratory failure with hypercapnia Plan to address problem: Acute on chronic respiratory failure with hypercapnia Patient is currently intubated chest x-ray with some concern for bibasilar haziness Given morbid obesity. Obesity hypoventilation Wean oxygen as tolerated (3) Anemia Current Visit: Yes Status: Acute Plan to address problem: Mild anemia Monitor CBC (4) Fever Current Visit: Yes Status: Acute Plan to address problem: Fever workup for infectious causes Infectious disease is following (5) Hyperkalemia Current Visit: Yes Status: Acute Plan to address problem: hyperkalemia ;resolved. Continue dialysis. Subjective Principal diagnosis: HF; acute hypoxemic resp failure, SIRS, CARLA Interval history: 34-year-old gentleman with morbid obesity, found with cyanosis difficulty with breathing and brought to the emergency room he required intubation review of systems unobtainable patient remains intubated and FiO2 100% he has had worsening renal function nephrology consulted for this. He was subsequently found to have a fever infectious diseases is followingshe initially related improvement. Acute kidney injury, subsequent worsening in the setting of elevat ed vancomycin levels Patient seen remains intubated and sedated Minimal urine output Has lower extremity edema We'll repeat hemodialysis on Friday schedule Diuretics when necessary Objective - Vital Signs Vital signs: Vital Signs - 12hr 05/23/19 05/23/19 05/23/19 02:30 02:45 03:01 Temperature Pulse Rate 110 H 108 H 103 H Pulse Rate [ From Monitor] Respiratory 26 H 25 H 22 Rate Blood Pressure 143/57 127/58 124/56 O2 Sat by Pulse 88 87 89 Oximetry 05/23/19 05/23/19 05/23/19 03:15 03:30 03:45 Temperature Pulse Rate 101 H 103 H 101 H Pulse Rate [ From Monitor] Respiratory 29 H 27 H 26 H Rate Blood Pressure 127/55 117/55 119/55 O2 Sat by Pulse 89 89 90 Oximetry 05/23/19 05/23/19 05/23/19 04:00 04:15 04:30 Temperature 100.2 F H Pulse Rate 101 H 98 H 102 H Pulse Rate [ From Monitor] Respiratory 24 28 H 27 H Rate Blood Pressure 125/51 122/53 117/57 O2 Sat by Pulse 88 88 89 Oximetry 05/23/19 05/23/19 05/23/19 04:35 04:45 04:52 Temperature Pulse Rate 97 H 105 H Pulse Rate [ 98 H From Monitor] Respiratory 24 25 H Rate Blood Pressure 123/45 123/45 O2 Sat by Pulse 88 88 92 Oximetry 05/23/19 05/23/19 05/23/19 05:01 05:15 05:31 Temperature Pulse Rate 105 H 104 H Pulse Rate [ From Monitor] Respiratory 24 18 Rate Blood Pressure 117/57 123/66 113/60 O2 Sat by Pulse 93 91 87 Oximetry 05/23/19 05/23/19 05/23/19 05:45 06:00 06:15 Temperature Pulse Rate 102 H 105 H 108 H Pulse Rate [ From Monitor] Respiratory 26 H 25 H 21 Rate Blood Pressure 103/32 114/43 123/57 O2 Sat by Pulse 91 90 92 Oximetry 05/23/19 05/23/19 05/23/19 06:30 06:36 06:45 Temperature Pulse Rate 114 H 117 H 113 H Pulse Rate [ From Monitor] Respiratory 20 19 Rate Blood Pressure 131/55 131/55 127/46 O2 Sat by Pulse 93 90 Oximetry 05/23/19 05/23/19 05/23/19 07:00 07:15 07:30 Temperature Pulse Rate 109 H 107 H 103 H Pulse Rate [ From Monitor] Respiratory 18 19 26 H Rate Blood Pressure 118/52 124/44 115/43 O2 Sat by Pulse 91 91 93 Oximetry 05/23/19 05/23/19 05/23/19 07:45 08:00 08:15 Temperature 101.2 F H Pulse Rate 108 H 101 H 101 H Pulse Rate [ 100 H From Monitor] Respiratory 20 26 H 6 L Rate Blood Pressure 124/55 119/59 96/37 O2 Sat by Pulse 92 92 89 Oximetry 05/23/19 05/23/19 05/23/19 08:30 08:45 09:00 Temperature Pulse Rate 100 H 100 H 97 H Pulse Rate [ From Monitor] Respiratory 13 20 25 H Rate Blood Pressure 116/54 118/63 115/52 O2 Sat by Pulse 90 92 90 Oximetry 05/23/19 05/23/19 05/23/19 09:15 09:30 09:45 Temperature Pulse Rate 98 H 99 H 99 H Pulse Rate [ From Monitor] Respiratory 27 H 26 H 23 Rate Blood Pressure 119/59 118/48 116/54 O2 Sat by Pulse 90 89 90 Oximetry 05/23/19 05/23/19 05/23/19 10:00 10:15 10:30 Temperature Pulse Rate 102 H 101 H 103 H Pulse Rate [ 99 H From Monitor] Respiratory 26 H 22 19 Rate Blood Pressure 117/60 117/58 112/57 O2 Sat by Pulse 91 92 92 Oximetry 05/23/19 05/23/19 05/23/19 10:45 11:00 11:15 Temperature Pulse Rate 102 H 101 H 99 H Pulse Rate [ From Monitor] Respiratory 22 22 23 Rate Blood Pressure 115/58 113/52 115/53 O2 Sat by Pulse 93 94 93 Oximetry 05/23/19 05/23/19 05/23/19 11:30 11:45 12:00 Temperature 101.1 F H Pulse Rate 101 H 102 H 106 H Pulse Rate [ 102 H From Monitor] Respiratory 27 H 20 23 Rate Blood Pressure 112/54 108/46 120/58 O2 Sat by Pulse 93 94 93 Oximetry 05/23/19 05/23/19 05/23/19 12:15 12:30 12:45 Temperature Pulse Rate 99 H 107 H 112 H Pulse Rate [ From Monitor] Respiratory 23 20 15 Rate Blood Pressure 107/47 119/61 121/64 O2 Sat by Pulse 92 93 91 Oximetry - General Appearance General appearance: obese, chronically ill EENT: ATNC, PERRL Neck: no JVD Respiratory: Present: Clear to Ascultation Cardiology: regular, S1S2 Gastrointestinal: normal, normoactive bowel sounds Neurologic: confused, CN 3-12 intact, other (sedated) - Lab 05/22/19 06:25 05/22/19 06:25 Most recent lab results ABG pH 7.281 pH Units (7.350-7.450) L 05/20/19 05:48 ABG pCO2 52.0 mm Hg 05/20/19 05:48 ABG pO2 78.7 mm Hg (80.0-90.0) L 05/20/19 05:48 ABG HCO3 24.0 mmol/L (20.0-26.0) 05/20/19 05:48 ABG O2 Saturation 94.5 % (95.0-99.0) L 05/20/19 05:48 Calcium 8.2 mg/dL (8.4-10.2) L 05/22/19 06:25 Phosphorus 4.90 mg/dL (2.5-4.5) H 05/02/19 00:06 Magnesium 2.30 mg/dL (1.7-2.3) 05/02/19 00:06 Urine Creatinine 292.8 mg/dL (0.1-20.0) H 05/07/19 22:40 Urine Sodium 11 mmol/L 05/07/19 22:40 Urine Total Protein 269 mg/dL (5-11.8) H 05/07/19 22:40 - Imaging Chest x-ray: image reviewed (review chest x-ray with left greater than right patchy opacities) Medications & Allergies - Medications Allergies/Adverse Reactions: Allergies No Known Allergies Allergy (Verified 05/01/19 20:27) Home Medications: Home Medications Medication Instructions Recorded Confirmed Last Taken Type No Known Home Medications [No 05/03/19 05/03/19 Unknown History Reported Home Medications] Active Medications: Generic Name Dose Route Start Last Admin Trade Name Freq PRN Reason Stop Dose Admin Acetaminophen 650 mg 05/01/19 22:46 05/21/19 16:48 Tylenol PO 650 mg Q4H PRN Administration Pain MILD(1-3)/Fever >100.5/FREEMAN Albumin Human 25 gm 05/19/19 10:47 Alburx 25% (Albumin) IV ARIANE PRN Hypotension Lipase/Protease/Amylase 1 each 05/14/19 15:01 German Fletcher 10,500 Unit FEEDTUBE PRN PRN For Clogged Feeding Tube Dextrose 50 gm 05/01/19 20:24 D50w (25gm) Vial IV Q30MIN PRN Hypoglycemia Protocol Enoxaparin Sodium 30 mg 05/16/19 10:00 05/23/19 10:04 Enoxaparin SUB-Q 30 mg QDAY VICKEY Administration Epoetin Hugo 10,000 unit 05/19/19 10:47 Procrit IV ARIANE PRN hemodialysis Famotidine 20 mg 05/16/19 10:00 05/23/19 10:04 Pepcid PO 20 mg DAILY VICKEY Administration Hydralazine HCl 20 mg 05/13/19 08:09 05/14/19 18:09 Apresoline IV 20 mg Q4HR PRN Administration SBP >/=160 Hydrophilic Ointment 1 applic 05/01/19 21:14 Vaseline Lip Therapy TP Q2HR PRN Dry Lips Fentanyl Citrate 2,000 mcg in 100 mls @ 10.195 mls/hr 05/01/19 22:00 05/23/19 10:33 Fentanyl Drip Premix IV 2 mcg/kg/hr TITR VICKEY 20.39 mls/hr Administration Protocol 1 MCG/KG/HR Propofol 1,000 mg in 100 mls @ 7.011 mls/hr 05/03/19 04:00 05/23/19 12:34 Diprivan 10 Mg/Ml IV 10 mcg/kg/min TITR VICKEY 14.022 mls/hr Administration Protocol 5 MCG/KG/MIN Norepinephrine 4 mg in 250 mls @ 7.5 mls/hr 05/03/19 18:00 05/20/19 08:04 Levophed Drip 4 Mg/Ns 250 Ml IV 0 mcg/min TITR VICKEY 0 mls/hr Titration Protocol 2 MCG/MIN Sodium Chloride 500 mls @ 10 mls/hr 05/06/19 15:00 Nacl 0.9% 500 Ml IV DIRECT VICKEY Metronidazole 500 mg in 100 mls @ 100 mls/hr 05/11/19 14:00 05/23/19 06:37 Flagyl 500 Mg/100 Ml IV 100 mls/hr Q8HR VICKEY Administration Protocol Nicardipine HCl 50 mg/ Sodium 250 mls @ 25 mls/hr 05/13/19 10:00 05/14/19 23:12 Chloride IV 0 mg/hr TITR VICKEY 0 mls/hr Titration Protocol 5 MG/HR Cefepime HCl 2 gm in 100 mls @ 200 mls/hr 05/18/19 11:00 05/23/19 10:04 Cefepime/Ns 2 Gm/100 Ml IV 200 mls/hr Q24HR VICKEY Administration Protocol Sodium Chloride 100 mls @ 999 mls/hr 05/19/19 10:47 05/20/19 08:14 Nacl 0.9% IV 999 mls/hr ARIANE PRN Administration Hypotension Labetalol HCl 100 mg 05/14/19 14:00 05/23/19 06:36 Labetalol PO 100 mg Q8HR VICKEY Administration Levetiracetam 750 mg 05/13/19 10:00 05/23/19 10:03 Keppra PO 750 mg BID VICKEY Administration Lorazepam 2 mg 05/06/19 06:22 05/10/19 16:17 Ativan IV 2 mg Q4H PRN Administration Seizures/AGITATION Multi-Ingred Cream/Lotion/Oil/Oint 1 applic 05/01/19 21:14 Artificial Tears Ophth Oint OU Q4HR PRN Dry Eye(s) Ondansetron HCl 4 mg 05/01/19 22:46 Zofran IV Q8H PRN Nausea And Vomiting Scopolamine 1 each 05/20/19 12:00 05/20/19 12:52 Transderm-Scop TD 1 each Q72HR VICKEY Administration Simple Syrup 15 ml 05/14/19 15:01 Simple Syrup FEEDTUBE PRN PRN Hypoglycemia Simple Syrup 30 ml 05/14/19 15:01 Simple Syrup FEEDTUBE PRN PRN Hypoglycemia Sodium Bicarbonate 325 mg 05/14/19 15:01 Sodium Bicarbonate FEEDTUBE PRN PRN For Clogged Feeding Tube Sodium Chloride 10 ml 05/02/19 10:00 05/23/19 10:05 Sodium Chloride Flush Syringe 10 Ml IV 10 ml BID VICKEY Administration Sodium Chloride 10 ml 05/01/19 22:46 05/05/19 02:28 Sodium Chloride Flush Syringe 10 Ml IV 10 ml PRN PRN Administration LINE FLUSH
--- NOTE | 2019-05-23 14:32 | Progress Note ---
Assessment and Plan Imp: 1. Acute respiratory failure, hypoxia 2. A/C respiratory failure, hypercapnea 3. [place]/OHS/Morbid obesity 4. CARLA 5. Pulm HTN 6. Sepsis -> ? Pneumonia, ? Meningitis 7. Seizures Rec: 1. Wean PEEP to as tolerated, with goal sats 88% or >; FiO2 currently at 50% 2. Sedation same 3. May need trach though poor oxygenation/high PEEP currently precludes 4. Recommend aggressive volume removal with HD to try to help with oxygenation and ventilator weaning; stop IVFs as do not believe he is dry 5. ABX per ID; fevers better; cultures negative; unsure if he would fit in the CT scanner if CT imaging is desired 6. Keppra BID 7. TFs as tolerated; DVT and GI PPx 8. Still with poor prognosis; patient w/ marginal improvement since admission CCT 31 minutes Subjective Date of service: 05/23/19 Principal diagnosis: HF; acute hypoxemic resp failure, SIRS, CARLA Interval history: Patient is sedated, intubated remain on mechanical ventilator unable to reduce PEEP Objective Vital Signs - 12hr 05/23/19 05/23/19 05/23/19 02:45 03:01 03:15 Temperature Pulse Rate 108 H 103 H 101 H Pulse Rate [ From Monitor] Respiratory 25 H 22 29 H Rate Blood Pressure 127/58 124/56 127/55 O2 Sat by Pulse 87 89 89 Oximetry 05/23/19 05/23/19 05/23/19 03:30 03:45 04:00 Temperature 100.2 F H Pulse Rate 103 H 101 H 101 H Pulse Rate [ From Monitor] Respiratory 27 H 26 H 24 Rate Blood Pressure 117/55 119/55 125/51 O2 Sat by Pulse 89 90 88 Oximetry 05/23/19 05/23/19 05/23/19 04:15 04:30 04:35 Temperature Pulse Rate 98 H 102 H Pulse Rate [ 98 H From Monitor] Respiratory 28 H 27 H 24 Rate Blood Pressure 122/53 117/57 O2 Sat by Pulse 88 89 88 Oximetry 05/23/19 05/23/19 05/23/19 04:45 04:52 05:01 Temperature Pulse Rate 97 H 105 H 105 H Pulse Rate [ From Monitor] Respiratory 25 H 24 Rate Blood Pressure 123/45 123/45 117/57 O2 Sat by Pulse 88 92 93 Oximetry 05/23/19 05/23/1905/23/19 05:15 05:31 05:45 Temperature Pulse Rate 104 H 102 H Pulse Rate [ From Monitor] Respiratory 18 26 H Rate Blood Pressure 123/66 113/60 103/32 O2 Sat by Pulse 91 87 91 Oximetry 05/23/19 05/23/19 05/23/19 06:00 06:15 06:30 Temperature Pulse Rate 105 H 108 H 114 H Pulse Rate [ From Monitor] Respiratory 25 H 21 20 Rate Blood Pressure 114/43 123/57 131/55 O2 Sat by Pulse 90 92 93 Oximetry 05/23/19 05/23/19 05/23/19 06:36 06:45 07:00 Temperature Pulse Rate 117 H 113 H 109 H Pulse Rate [ From Monitor] Respiratory 19 18 Rate Blood Pressure 131/55 127/46 118/52 O2 Sat by Pulse 90 91 Oximetry 05/23/19 05/23/19 05/23/19 07:15 07:30 07:45 Temperature Pulse Rate 107 H 103 H 108 H Pulse Rate [ From Monitor] Respiratory 19 26 H 20 Rate Blood Pressure 124/44 115/43 124/55 O2 Sat by Pulse 91 93 92 Oximetry 05/23/19 05/23/19 05/23/19 08:00 08:15 08:30 Temperature 101.2 F H Pulse Rate 101 H 101 H 100 H Pulse Rate [ 100 H From Monitor] Respiratory 26 H 6 L 13 Rate Blood Pressure 119/59 96/37 116/54 O2 Sat by Pulse 92 89 90 Oximetry 05/23/19 05/23/19 05/23/19 08:45 09:00 09:15 Temperature Pulse Rate 100 H 97 H 98 H Pulse Rate [ From Monitor] Respiratory 20 25 H 27 H Rate Blood Pressure 118/63 115/52 119/59 O2 Sat by Pulse 92 90 90 Oximetry 05/23/19 05/23/19 05/23/19 09:30 09:45 10:00 Temperature Pulse Rate 99 H 99 H 102 H Pulse Rate [ 99 H From Monitor] Respiratory 26 H 23 26 H Rate Blood Pressure 118/48 116/54 117/60 O2 Sat by Pulse 89 90 91 Oximetry 05/23/19 05/23/19 05/23/19 10:15 10:30 10:45 Temperature Pulse Rate 101 H 103 H 102 H Pulse Rate [ From Monitor] Respiratory 22 19 22 Rate Blood Pressure 117/58 112/57 115/58 O2 Sat by Pulse 92 92 93 Oximetry 05/23/19 05/23/19 05/23/19 11:00 11:15 11:30 Temperature Pulse Rate 101 H 99 H 101 H Pulse Rate [ From Monitor] Respiratory 22 23 27 H Rate Blood Pressure 113/52 115/53 112/54 O2 Sat by Pulse 94 93 93 Oximetry 05/23/19 05/23/19 05/23/19 11:45 12:00 12:15 Temperature 101.1 F H Pulse Rate 102 H 106 H 99 H Pulse Rate [ 102 H From Monitor] Respiratory 20 23 23 Rate Blood Pressure 108/46 120/58 107/47 O2 Sat by Pulse 94 93 92 Oximetry 05/23/19 05/23/19 12:30 12:45 Temperature Pulse Rate 107 H 112 H Pulse Rate [ From Monitor] Respiratory 20 15 Rate Blood Pressure 119/61 121/64 O2 Sat by Pulse 93 91 Oximetry Constitutional: other (morbidly obese male, sedated on vent, orally intubated) Eyes: non-icteric ENT: oropharynx moist Neck: other (extremely large in circumference) Effort: normal Ascultation: Bilateral: diminished breath sounds (secondary to body habitus) Cardiovascular: regular rate and rhythm (no mrg) Gastrointestinal: normoactive bowel sounds, non-tender, other (obese) Integumentary: other (L hand is wrapped) Extremities: no cyanosis, pink and warm, other (1+ generalized edema) Neurologic: unable to assess Psychiatric: other (unable to assess) CBC and BMP: 05/22/19 06:25 05/22/19 06:25 ABG, PT/INR, D-dimer: ABG POC ABG pH 7.367 (7.35-7.45) 05/23/19 05:21 ABG pH 7.281 pH Units (7.350-7.450) L 05/20/19 05:48 POC ABG pCO2 49.7 (35-45) H 05/23/19 05:21 ABG pCO2 52.0 mm Hg 05/20/19 05:48 POC ABG pO2 73 (80-105) L 05/23/19 05:21 ABG pO2 78.7 mm Hg (80.0-90.0) L 05/20/19 05:48 POC ABG HCO3 28.6 (22-26 mml/L) 05/23/19 05:21 POC ABG Total CO2 30 (23-27mmol/L) 05/23/19 05:21 POC ABG O2 Sat 94 05/23/19 05:21 ABG O2 Saturation 94.5 % (95.0-99.0) L 05/20/19 05:48 PT/INR, D-dimer PT 15.4 Sec. (12.2-14.9) H 05/01/19 Unknown INR 1.23 (0.87-1.13) H 05/01/19 Unknown Abnormal lab findings: Abnormal Labs 05/01/19 05/01/19 05/01/19 17:50 19:26 22:36 WBC RBC Hgb Hct MCV MCH MCHC RDW Lymph % (Auto) [place] % (Auto) Eos % (Auto) Lymph # [place] # Eos # Seg Neutrophils % Seg Neuts % (Manual) Lymphocytes % (Manual) Monocytes % (Manual) Eosinophils % (Manual) Nucleated RBC % Seg Neutrophils # Lymphocytes # (Manual) Monocytes # (Manual) Eosinophils # (Manual) PT INR APTT POC ABG pH 7.272 L 7.331 L ABG pH POC ABG pCO2 52.8 H POC ABG pO2 ABG pO2 ABG HCO3 ABG O2 Saturation ABG Base Excess ABG Hemoglobin Oxyhemoglobin Sodium 136 L Potassium 6.5 H* Chloride 97.2 L Carbon Dioxide BUN 60 H Creatinine Glucose 113 H POC Glucose Uric Acid Calcium Phosphorus Magnesium 2.40 H AST 139 H ALT 154 H Total Creatine Kinase CK-MB (CK-2) Troponin T NT-Pro-B Natriuret Pep Total Protein Albumin 3.8 L Triglycerides HDL Cholesterol Urine WBC (Auto) Urine Creatinine Urine Total Protein Vancomycin Trough 05/01/19 05/01/19 05/01/19 Unknown Unknown Unknown WBC 16.1 H RBC Hgb Hct MCV MCH MCHC RDW 17.2 H Lymph % (Auto) [place] % (Auto) 9.6 H Eos % (Auto) Lymph # [place] # 1.5 H Eos # Seg Neutrophils % 73.0 H Seg Neuts % (Manual) Lymphocytes % (Manual) Monocytes % (Manual) Eosinophils % (Manual) Nucleated RBC % Seg Neutrophils # 11.7 H Lymphocytes # (Manual) Monocytes # (Manual) Eosinophils # (Manual) PT 15.4 H INR 1.23 H APTT 22.7 L POC ABG pH ABG pH POC ABG pCO2 POC ABG pO2 ABG pO2 ABG HCO3 ABG O2 Saturation ABG Base Excess ABG Hemoglobin Oxyhemoglobin Sodium Potassium Chloride Carbon Dioxide BUN Creatinine Glucose POC Glucose Uric Acid Calcium Phosphorus Magnesium AST ALT Total Creatine Kinase CK-MB (CK-2) Troponin T NT-Pro-B Natriuret Pep 6831 H Total Protein Albumin Triglycerides HDL Cholesterol Urine WBC (Auto) Urine Creatinine Urine Total Protein Vancomycin Trough 05/01/19 05/02/19 05/02/19 Unknown 00:06 00:06 WBC RBC Hgb Hct MCV MCH MCHC RDW Lymph % (Auto) [place] % (Auto) Eos % (Auto) Lymph # [place] # Eos # Seg Neutrophils % Seg Neuts % (Manual) Lymphocytes % (Manual) Monocytes % (Manual) Eosinophils % (Manual) Nucleated RBC % Seg Neutrophils # Lymphocytes # (Manual) Monocytes # (Manual) Eosinophils # (Manual) PT INR APTT POC ABG pH ABG pH POC ABG pCO2 POC ABG pO2 ABG pO2 ABG HCO3 ABG O2 Saturation ABG Base Excess ABG Hemoglobin Oxyhemoglobin Sodium Potassium Chloride Carbon Dioxide BUN Creatinine Glucose POC Glucose Uric Acid Calcium Phosphorus 4.90 H Magnesium AST ALT Total Creatine Kinase 226 H CK-MB (CK-2) 5.7 H Troponin T 0.044 H NT-Pro-B Natriuret Pep Total Protein Albumin Triglycerides 182 H HDL Cholesterol 18 L Urine WBC (Auto) Urine Creatinine Urine Total Protein Vancomycin Trough 05/02/19 05/02/19 05/02/19 02:08 04:40 04:41 WBC 17.6 H RBC Hgb Hct MCV MCH 27 L MCHC RDW 17.4 H Lymph % (Auto) 10.2 L [place] % (Auto) 11.0 H Eos % (Auto) Lymph # [place] # 1.9 H Eos # Seg Neutrophils % 78.0 H Seg Neuts % (Manual) Lymphocytes % (Manual) Monocytes % (Manual) Eosinophils % (Manual) Nucleated RBC % Seg Neutrophils # 13.8 H Lymphocytes # (Manual) Monocytes # (Manual) Eosinophils # (Manual) PT INR APTT POC ABG pH ABG pH POC ABG pCO2 46.8 H POC ABG pO2 63 L ABG pO2 ABG HCO3 ABG O2 Saturation ABG Base Excess ABG Hemoglobin Oxyhemoglobin Sodium Potassium Chloride 96.3 L Carbon Dioxide BUN 63 H Creatinine 1.7 H Glucose POC Glucose Uric Acid Calcium Phosphorus Magnesium AST ALT Total Creatine Kinase CK-MB (CK-2) Troponin T NT-Pro-B Natriuret Pep Total Protein Albumin Triglycerides HDL Cholesterol Urine WBC (Auto) Urine Creatinine Urine Total Protein Vancomycin Trough 05/02/19 05/02/19 05/02/19 04:41 04:41 16:05 WBC RBC Hgb Hct MCV MCH MCHC RDW Lymph % (Auto) [place] % (Auto) Eos % (Auto) Lymph # [place] # Eos # Seg Neutrophils % Seg Neuts % (Manual) Lymphocytes % (Manual) Monocytes % (Manual) Eosinophils % (Manual) Nucleated RBC % Seg Neutrophils # Lymphocytes # (Manual) Monocytes # (Manual) Eosinophils # (Manual) PT INR APTT POC ABG pH ABG pH POC ABG pCO2 POC ABG pO2 ABG pO2 66.6 L ABG HCO3 31.9 H ABG O2 Saturation 92.5 L ABG Base Excess 5.8 H ABG Hemoglobin 13.3 L Oxyhemoglobin 90.6 L Sodium Potassium Chloride 97.2 L Carbon Dioxide BUN 61 H Creatinine 1.8 H Glucose POC Glucose Uric Acid Calcium Phosphorus Magnesium AST ALT Total Creatine Kinase CK-MB (CK-2) 5.2 H Troponin T 0.067 H D NT-Pro-B Natriuret Pep Total Protein Albumin Triglycerides HDL Cholesterol Urine WBC (Auto) Urine Creatinine Urine Total Protein Vancomycin Trough 05/02/19 05/03/19 05/03/19 20:39 04:35 05:05 WBC 11.8 H RBC Hgb Hct MCV MCH 27 L MCHC 31 L RDW 17.2 H Lymph % (Auto) [place] % (Auto) Eos % (Auto) Lymph # [place] # Eos # Seg Neutrophils % Seg Neuts % (Manual) Lymphocytes % (Manual) Monocytes % (Manual) Eosinophils % (Manual) Nucleated RBC % Seg Neutrophils # Lymphocytes # (Manual) Monocytes # (Manual) Eosinophils # (Manual) PT INR APTT POC ABG pH ABG pH POC ABG pCO2 53.6 H 54.0 H POC ABG pO2 55 L 63 L ABG pO2 ABG HCO3 ABG O2 Saturation ABG Base Excess ABG Hemoglobin Oxyhemoglobin Sodium Potassium Chloride Carbon Dioxide BUN Creatinine Glucose POC Glucose Uric Acid Calcium Phosphorus Magnesium AST ALT Total Creatine Kinase CK-MB (CK-2) Troponin T NT-Pro-B Natriuret Pep Total Protein Albumin Triglycerides HDL Cholesterol Urine WBC (Auto) Urine Creatinine Urine Total Protein Vancomycin Trough 05/03/19 05/03/19 05/03/19 05:05 10:55 16:48 WBC RBC Hgb Hct MCV MCH MCHC RDW Lymph % (Auto) [place] % (Auto) Eos % (Auto) Lymph # [place] # Eos # Seg Neutrophils % Seg Neuts % (Manual) Lymphocytes % (Manual) Monocytes % (Manual) Eosinophils % (Manual) Nucleated RBC % Seg Neutrophils # Lymphocytes # (Manual) Monocytes # (Manual) Eosinophils # (Manual) PT INR APTT POC ABG pH 7.604 H ABG pH POC ABG pCO2 POC ABG pO2 58 L ABG pO2 ABG HCO3 ABG O2 Saturation ABG Base Excess ABG Hemoglobin Oxyhemoglobin Sodium Potassium Chloride Carbon Dioxide BUN 52 H Creatinine 1.9 H Glucose 103 H POC Glucose Uric Acid Calcium Phosphorus Magnesium AST ALT Total Creatine Kinase CK-MB (CK-2) Troponin T NT-Pro-B Natriuret Pep Total Protein Albumin Triglycerides HDL Cholesterol Urine WBC (Auto) 33.0 H Urine Creatinine Urine Total Protein Vancomycin Trough 05/04/19 05/04/19 05/04/19 04:49 06:50 06:50 WBC 16.0 H RBC Hgb Hct MCV MCH 27 L MCHC 31 L RDW 17.8 H Lymph % (Auto) [place] % (Auto) Eos % (Auto) Lymph # [place] # Eos # Seg Neutrophils % Seg Neuts % (Manual) Lymphocytes % (Manual) Monocytes % (Manual) Eosinophils % (Manual) Nucleated RBC % Seg Neutrophils # Lymphocytes # (Manual) Monocytes # (Manual) Eosinophils # (Manual) PT INR APTT POC ABG pH 7.273 L ABG pH POC ABG pCO2 POC ABG pO2 ABG pO2 ABG HCO3 ABG O2 Saturation ABG Base Excess ABG Hemoglobin Oxyhemoglobin Sodium 148 H Potassium 5.5 H Chloride Carbon Dioxide BUN 53 H Creatinine 3.3 H D Glucose 106 H POC Glucose Uric Acid Calcium 8.3 L Phosphorus Magnesium AST ALT Total Creatine Kinase CK-MB (CK-2) Troponin T NT-Pro-B Natriuret Pep Total Protein Albumin Triglycerides HDL Cholesterol Urine WBC (Auto) Urine Creatinine Urine Total Protein Vancomycin Trough 05/05/19 05/05/19 05/05/19 00:05 04:30 05:00 WBC RBC Hgb Hct MCV MCH MCHC RDW Lymph % (Auto) [place] % (Auto) Eos % (Auto) Lymph # [place] # Eos # Seg Neutrophils % Seg Neuts % (Manual) Lymphocytes % (Manual) Monocytes % (Manual) Eosinophils % (Manual) Nucleated RBC % Seg Neutrophils # Lymphocytes # (Manual) Monocytes # (Manual) Eosinophils # (Manual) PT INR APTT POC ABG pH 7.225 L ABG pH POC ABG pCO2 > 70 H POC ABG pO2 ABG pO2 ABG HCO3 ABG O2 Saturation ABG Base Excess ABG Hemoglobin Oxyhemoglobin Sodium 151 H Potassium 5.1 H Chloride Carbon Dioxide BUN 64 H Creatinine 3.5 H Glucose 117 H POC Glucose 141 H Uric Acid Calcium 7.5 L Phosphorus Magnesium AST 93 H ALT 65 H Total Creatine Kinase CK-MB (CK-2) Troponin T NT-Pro-B Natriuret Pep Total Protein Albumin 2.9 L Triglycerides HDL Cholesterol Urine WBC (Auto) Urine Creatinine Urine Total Protein Vancomycin Trough 05/05/19 05/05/19 05/05/19 05:00 12:02 17:46 WBC 12.0 H RBC Hgb 11.3 L Hct MCV MCH 27 L MCHC 30 L RDW 18.4 H Lymph % (Auto) 7.9 L [place] % (Auto) 10.2 H Eos % (Auto) Lymph # 1.0 L [place] # 1.2 H Eos # Seg Neutrophils % 80.8 H Seg Neuts % (Manual) Lymphocytes % (Manual) Monocytes % (Manual) Eosinophils % (Manual) Nucleated RBC % Seg Neutrophils # 9.7 H Lymphocytes # (Manual) Monocytes # (Manual) Eosinophils # (Manual) PT INR APTT POC ABG pH ABG pH POC ABG pCO2 POC ABG pO2 ABG pO2 ABG HCO3 ABG O2 Saturation ABG Base Excess ABG Hemoglobin Oxyhemoglobin Sodium Potassium Chloride Carbon Dioxide BUN Creatinine Glucose POC Glucose 125 H 112 H Uric Acid Calcium Phosphorus Magnesium AST ALT Total Creatine Kinase CK-MB (CK-2) Troponin T NT-Pro-B Natriuret Pep Total Protein Albumin Triglycerides HDL Cholesterol Urine WBC (Auto) Urine Creatinine Urine Total Protein Vancomycin Trough 05/05/19 05/06/19 05/06/19 23:42 03:58 04:45 WBC 11.4 H RBC Hgb 10.7 L Hct 34.2 L MCV MCH 27 L MCHC 31 L RDW 16.9 H Lymph % (Auto) [place] % (Auto) Eos % (Auto) Lymph # [place] # Eos # Seg Neutrophils % Seg Neuts % (Manual) Lymphocytes % (Manual) Monocytes % (Manual) Eosinophils % (Manual) Nucleated RBC % Seg Neutrophils # Lymphocytes # (Manual) Monocytes # (Manual) Eosinophils # (Manual) PT INR APTT POC ABG pH ABG pH POC ABG pCO2 62.4 H POC ABG pO2 111 H ABG pO2 ABG HCO3 ABG O2 Saturation ABG Base Excess ABG Hemoglobin Oxyhemoglobin Sodium Potassium Chloride Carbon Dioxide BUN Creatinine Glucose POC Glucose 128 H Uric Acid Calcium Phosphorus Magnesium AST ALT Total Creatine Kinase CK-MB (CK-2) Troponin T NT-Pro-B Natriuret Pep Total Protein Albumin Triglycerides HDL Cholesterol Urine WBC (Auto) Urine Creatinine Urine Total Protein Vancomycin Trough 05/06/19 05/06/19 05/06/19 04:45 05:33 12:30 WBC RBC Hgb Hct MCV MCH MCHC RDW Lymph % (Auto) [place] % (Auto) Eos % (Auto) Lymph # [place] # Eos # Seg Neutrophils % Seg Neuts % (Manual) Lymphocytes % (Manual) Monocytes % (Manual) Eosinophils % (Manual) Nucleated RBC % Seg Neutrophils # Lymphocytes # (Manual) Monocytes # (Manual) Eosinophils # (Manual) PT INR APTT POC ABG pH ABG pH POC ABG pCO2 POC ABG pO2 ABG pO2 ABG HCO3 ABG O2 Saturation ABG Base Excess ABG Hemoglobin Oxyhemoglobin Sodium 149 H Potassium Chloride Carbon Dioxide 31 H BUN 67 H Creatinine 3.2 H Glucose 125 H POC Glucose 117 H 116 H Uric Acid Calcium 7.5 L Phosphorus Magnesium AST ALT Total Creatine Kinase CK-MB (CK-2) Troponin T NT-Pro-B Natriuret Pep Total Protein Albumin Triglycerides HDL Cholesterol Urine WBC (Auto) Urine Creatinine Urine Total Protein Vancomycin Trough 05/06/19 05/06/19 05/07/19 18:34 23:16 05:22 WBC RBC Hgb Hct MCV MCH MCHC RDW Lymph % (Auto) [place] % (Auto) Eos % (Auto) Lymph # [place] # Eos # Seg Neutrophils % Seg Neuts % (Manual) Lymphocytes % (Manual) Monocytes % (Manual) Eosinophils % (Manual) Nucleated RBC % Seg Neutrophils # Lymphocytes # (Manual) Monocytes # (Manual) Eosinophils # (Manual) PT INR APTT POC ABG pH ABG pH POC ABG pCO2 POC ABG pO2 ABG pO2 ABG HCO3 ABG O2 Saturation ABG Base Excess ABG Hemoglobin Oxyhemoglobin Sodium Potassium Chloride Carbon Dioxide BUN Creatinine Glucose POC Glucose 128 H 143 H 166 H Uric Acid Calcium Phosphorus Magnesium AST ALT Total Creatine Kinase CK-MB (CK-2) Troponin T NT-Pro-B Natriuret Pep Total Protein Albumin Triglycerides HDL Cholesterol Urine WBC (Auto) Urine Creatinine Urine Total Protein Vancomycin Trough 05/07/19 05/07/19 05/07/19 06:33 07:03 09:35 WBC RBC Hgb Hct MCV MCH MCHC RDW Lymph % (Auto) [place] % (Auto) Eos % (Auto) Lymph # [place] # Eos # Seg Neutrophils % Seg Neuts % (Manual) Lymphocytes % (Manual) Monocytes % (Manual) Eosinophils % (Manual) Nucleated RBC % Seg Neutrophils # Lymphocytes # (Manual) Monocytes # (Manual) Eosinophils # (Manual) PT INR APTT POC ABG pH 7.263 L 7.288 L ABG pH POC ABG pCO2 POC ABG pO2 51 L 56 L ABG pO2 ABG HCO3 ABG O2 Saturation ABG Base Excess ABG Hemoglobin Oxyhemoglobin Sodium Potassium Chloride Carbon Dioxide BUN 76 H Creatinine 3.2 H Glucose 147 H POC Glucose Uric Acid Calcium 7.9 L Phosphorus Magnesium AST ALT Total Creatine Kinase CK-MB (CK-2) Troponin T NT-Pro-B Natriuret Pep Total Protein Albumin Triglycerides HDL Cholesterol Urine WBC (Auto) Urine Creatinine Urine Total Protein Vancomycin Trough 05/07/19 05/07/19 05/07/19 09:35 12:17 13:45 WBC 13.4 H RBC Hgb 11.6 L Hct MCV MCH 27 L MCHC 31 L RDW 17.5 H Lymph % (Auto) [place] % (Auto) Eos % (Auto) Lymph # [place] # Eos # Seg Neutrophils % Seg Neuts % (Manual) Lymphocytes % (Manual) Monocytes % (Manual) Eosinophils % (Manual) Nucleated RBC % Seg Neutrophils # Lymphocytes # (Manual) Monocytes # (Manual) Eosinophils # (Manual) PT INR APTT POC ABG pH ABG pH POC ABG pCO2 POC ABG pO2 ABG pO2 ABG HCO3 ABG O2 Saturation ABG Base Excess ABG Hemoglobin Oxyhemoglobin Sodium Potassium Chloride Carbon Dioxide BUN Creatinine Glucose POC Glucose 130 H Uric Acid 18.0 H Calcium Phosphorus Magnesium AST ALT Total Creatine Kinase CK-MB (CK-2) Troponin T NT-Pro-B Natriuret Pep Total Protein Albumin Triglycerides HDL Cholesterol Urine WBC (Auto) Urine Creatinine Urine Total Protein Vancomycin Trough 05/07/19 05/07/19 05/08/19 17:39 22:40 05:06 WBC RBC Hgb Hct MCV MCH MCHC RDW Lymph % (Auto) [place] % (Auto) Eos % (Auto) Lymph # [place] # Eos # Seg Neutrophils % Seg Neuts % (Manual) Lymphocytes % (Manual) Monocytes % (Manual) Eosinophils % (Manual) Nucleated RBC % Seg Neutrophils # Lymphocytes # (Manual) Monocytes # (Manual) Eosinophils # (Manual) PT INR APTT POC ABG pH ABG pH POC ABG pCO2 POC ABG pO2 ABG pO2 ABG HCO3 ABG O2 Saturation ABG Base Excess ABG Hemoglobin Oxyhemoglobin Sodium Potassium Chloride Carbon Dioxide BUN Creatinine Glucose POC Glucose 116 H 148 H Uric Acid Calcium Phosphorus Magnesium AST ALT Total Creatine Kinase CK-MB (CK-2) Troponin T NT-Pro-B Natriuret Pep Total Protein Albumin Triglycerides HDL Cholesterol Urine WBC (Auto) Urine Creatinine 292.8 H Urine Total Protein 269 H Vancomycin Trough 05/08/19 05/08/19 05/08/19 05:32 11:28 13:48 WBC RBC Hgb Hct MCV MCH MCHC RDW Lymph % (Auto) [place] % (Auto) Eos % (Auto) Lymph # [place] # Eos # Seg Neutrophils % Seg Neuts % (Manual) Lymphocytes % (Manual) Monocytes % (Manual) Eosinophils % (Manual) Nucleated RBC % Seg Neutrophils # Lymphocytes # (Manual) Monocytes # (Manual) Eosinophils # (Manual) PT INR APTT POC ABG pH ABG pH POC ABG pCO2 45.4 H POC ABG pO2 64 L ABG pO2 ABG HCO3 ABG O2 Saturation ABG Base Excess ABG Hemoglobin Oxyhemoglobin Sodium Potassium Chloride Carbon Dioxide BUN 73 H Creatinine 2.7 H Glucose 127 H POC Glucose 107 H Uric Acid Calcium 7.6 L Phosphorus Magnesium AST ALT Total Creatine Kinase CK-MB (CK-2) Troponin T NT-Pro-B Natriuret Pep Total Protein Albumin Triglycerides HDL Cholesterol Urine WBC (Auto) Urine Creatinine Urine Total Protein Vancomycin Trough 05/08/19 05/09/19 05/09/19 17:48 04:50 04:53 WBC RBC 3.07 L Hgb 8.5 L D Hct 29.3 L D MCV 96 H MCH MCHC 29 L RDW 18.1 H Lymph % (Auto) [place] % (Auto) Eos % (Auto) Lymph # [place] # Eos # Seg Neutrophils % Seg Neuts % (Manual) Lymphocytes % (Manual) Monocytes % (Manual) Eosinophils % (Manual) Nucleated RBC % Seg Neutrophils # Lymphocytes # (Manual) Monocytes # (Manual) Eosinophils # (Manual) PT INR APTT POC ABG pH 7.316 L ABG pH POC ABG pCO2 66.0 H POC ABG pO2 69 L ABG pO2 ABG HCO3 ABG O2 Saturation ABG Base Excess ABG Hemoglobin Oxyhemoglobin Sodium Potassium Chloride Carbon Dioxide BUN Creatinine Glucose POC Glucose 155 H Uric Acid Calcium Phosphorus Magnesium AST ALT Total Creatine Kinase CK-MB (CK-2) Troponin T NT-Pro-B Natriuret Pep Total Protein Albumin Triglycerides HDL Cholesterol Urine WBC (Auto) Urine Creatinine Urine Total Protein Vancomycin Trough 05/09/19 05/09/19 05/09/19 05:46 07:24 12:10 WBC RBC Hgb Hct MCV MCH MCHC RDW Lymph % (Auto) [place] % (Auto) Eos % (Auto) Lymph # [place] # Eos # Seg Neutrophils % Seg Neuts % (Manual) Lymphocytes % (Manual) Monocytes % (Manual) Eosinophils % (Manual) Nucleated RBC % Seg Neutrophils # Lymphocytes # (Manual) Monocytes # (Manual) Eosinophils # (Manual) PT INR APTT POC ABG pH ABG pH POC ABG pCO2 POC ABG pO2 ABG pO2 ABG HCO3 ABG O2 Saturation ABG Base Excess ABG Hemoglobin Oxyhemoglobin Sodium Potassium Chloride Carbon Dioxide BUN 73 H Creatinine 2.4 H Glucose 153 H POC Glucose 123 H 148 H Uric Acid Calcium 8.2 L Phosphorus Magnesium AST 45 H ALT Total Creatine Kinase CK-MB (CK-2) Troponin T NT-Pro-B Natriuret Pep Total Protein 6.0 L Albumin 1.9 L Triglycerides HDL Cholesterol Urine WBC (Auto) Urine Creatinine Urine Total Protein Vancomycin Trough 05/09/19 05/09/19 05/10/19 18:23 23:26 04:52 WBC RBC Hgb Hct MCV MCH MCHC RDW Lymph % (Auto) [place] % (Auto) Eos % (Auto) Lymph # [place] # Eos # Seg Neutrophils % Seg Neuts % (Manual) Lymphocytes % (Manual) Monocytes % (Manual) Eosinophils % (Manual) Nucleated RBC % Seg Neutrophils # Lymphocytes # (Manual) Monocytes # (Manual) Eosinophils # (Manual) PT INR APTT POC ABG pH 7.305 L ABG pH POC ABG pCO2 62.6 H POC ABG pO2 ABG pO2 ABG HCO3 ABG O2 Saturation ABG Base Excess ABG Hemoglobin Oxyhemoglobin Sodium Potassium Chloride Carbon Dioxide BUN Creatinine Glucose POC Glucose 147 H 121 H Uric Acid Calcium Phosphorus Magnesium AST ALT Total Creatine Kinase CK-MB (CK-2) Troponin T NT-Pro-B Natriuret Pep Total Protein Albumin Triglycerides HDL Cholesterol Urine WBC (Auto) Urine Creatinine Urine Total Protein Vancomycin Trough 05/10/19 05/10/19 05/10/19 05:00 05:00 05:50 WBC RBC Hgb 10.3 L Hct 33.7 L MCV MCH 27 L MCHC 31 L RDW 17.0 H Lymph % (Auto) [place] % (Auto) Eos % (Auto) Lymph # [place] # Eos # Seg Neutrophils % Seg Neuts % (Manual) Lymphocytes % (Manual) Monocytes % (Manual) Eosinophils % (Manual) Nucleated RBC % Seg Neutrophils # Lymphocytes # (Manual) Monocytes # (Manual) Eosinophils # (Manual) PT INR APTT POC ABG pH ABG pH POC ABG pCO2 POC ABG pO2 ABG pO2 ABG HCO3 ABG O2 Saturation ABG Base Excess ABG Hemoglobin Oxyhemoglobin Sodium 147 H Potassium Chloride Carbon Dioxide BUN 70 H Creatinine 2.6 H Glucose 155 H POC Glucose 158 H Uric Acid Calcium 8.2 L Phosphorus Magnesium AST ALT Total Creatine Kinase CK-MB (CK-2) Troponin T NT-Pro-B Natriuret Pep Total Protein 6.1 L Albumin 2.5 L Triglycerides HDL Cholesterol Urine WBC (Auto) Urine Creatinine Urine Total Protein Vancomycin Trough 05/10/19 05/11/19 05/11/19 13:14 07:26 11:40 WBC RBC Hgb Hct MCV MCH MCHC RDW Lymph % (Auto) [place] % (Auto) Eos % (Auto) Lymph # [place] # Eos # Seg Neutrophils % Seg Neuts % (Manual) Lymphocytes % (Manual) Monocytes % (Manual) Eosinophils % (Manual) Nucleated RBC % Seg Neutrophils # Lymphocytes # (Manual) Monocytes # (Manual) Eosinophils # (Manual) PT INR APTT POC ABG pH ABG pH POC ABG pCO2 48.0 H POC ABG pO2 58 L ABG pO2 ABG HCO3 ABG O2 Saturation ABG Base Excess ABG Hemoglobin Oxyhemoglobin Sodium 147 H Potassium Chloride 107.2 H Carbon Dioxide BUN 67 H Creatinine 2.6 H Glucose 121 H POC Glucose 159 H Uric Acid Calcium Phosphorus Magnesium AST ALT Total Creatine Kinase CK-MB (CK-2) Troponin T NT-Pro-B Natriuret Pep Total Protein Albumin Triglycerides HDL Cholesterol Urine WBC (Auto) Urine Creatinine Urine Total Protein Vancomycin Trough 05/11/19 05/11/19 05/12/19 18:13 23:46 04:40 WBC RBC Hgb Hct MCV MCH MCHC RDW Lymph % (Auto) [place] % (Auto) Eos % (Auto) Lymph # [place] # Eos # Seg Neutrophils % Seg Neuts % (Manual) Lymphocytes % (Manual) Monocytes % (Manual) Eosinophils % (Manual) Nucleated RBC % Seg Neutrophils # Lymphocytes # (Manual) Monocytes # (Manual) Eosinophils # (Manual) PT INR APTT POC ABG pH ABG pH 7.264 L POC ABG pCO2 POC ABG pO2 ABG pO2 66.8 L ABG HCO3 31.0 H ABG O2 Saturation 92.0 L ABG Base Excess ABG Hemoglobin 10.3 L Oxyhemoglobin 90.1 L Sodium Potassium Chloride Carbon Dioxide BUN Creatinine Glucose POC Glucose 120 H 121 H Uric Acid Calcium Phosphorus Magnesium AST ALT Total Creatine Kinase CK-MB (CK-2) Troponin T NT-Pro-B Natriuret Pep Total Protein Albumin Triglycerides HDL Cholesterol Urine WBC (Auto) Urine Creatinine Urine Total Protein Vancomycin Trough 05/12/19 05/12/19 05/12/19 04:45 04:45 11:14 WBC RBC Hgb 10.2 L Hct 32.4 L MCV MCH MCHC 31 L RDW 17.2 H Lymph % (Auto) [place] % (Auto) Eos % (Auto) Lymph # [place] # Eos # Seg Neutrophils % Seg Neuts % (Manual) Lymphocytes % (Manual) Monocytes % (Manual) Eosinophils % (Manual) Nucleated RBC % Seg Neutrophils # Lymphocytes # (Manual) Monocytes # (Manual) Eosinophils # (Manual) PT INR APTT POC ABG pH 7.284 L ABG pH POC ABG pCO2 67.8 H POC ABG pO2 ABG pO2 ABG HCO3 ABG O2 Saturation ABG Base Excess ABG Hemoglobin Oxyhemoglobin Sodium Potassium Chloride Carbon Dioxide BUN 63 H Creatinine 2.4 H Glucose 110 H POC Glucose Uric Acid Calcium Phosphorus Magnesium AST ALT Total Creatine Kinase CK-MB (CK-2) Troponin T NT-Pro-B Natriuret Pep Total Protein Albumin Triglycerides HDL Cholesterol Urine WBC (Auto) Urine Creatinine Urine Total Protein Vancomycin Trough 05/12/19 05/12/19 05/13/19 11:44 23:11 04:30 WBC RBC Hgb Hct MCV MCH MCHC RDW Lymph % (Auto) [place] % (Auto) Eos % (Auto) Lymph # [place] # Eos # Seg Neutrophils % Seg Neuts % (Manual) Lymphocytes % (Manual) Monocytes % (Manual) Eosinophils % (Manual) Nucleated RBC % Seg Neutrophils # Lymphocytes # (Manual) Monocytes # (Manual) Eosinophils # (Manual) PT INR APTT POC ABG pH ABG pH 7.288 L POC ABG pCO2 POC ABG pO2 ABG pO2 109.7 H ABG HCO3 30.9 H ABG O2 Saturation ABG Base Excess 3.2 H ABG Hemoglobin 9.6 L Oxyhemoglobin Sodium Potassium Chloride Carbon Dioxide BUN Creatinine Glucose POC Glucose 126 H 147 H Uric Acid Calcium Phosphorus Magnesium AST ALT Total Creatine Kinase CK-MB (CK-2) Troponin T NT-Pro-B Natriuret Pep Total Protein Albumin Triglycerides HDL Cholesterol Urine WBC (Auto) Urine Creatinine Urine Total Protein Vancomycin Trough 05/13/19 05/13/19 05/14/19 06:27 11:58 04:00 WBC RBC 3.16 L Hgb 9.3 L Hct 27.9 L MCV MCH MCHC RDW 17.1 H Lymph % (Auto) [place] % (Auto) Eos % (Auto) Lymph # [place] # Eos # Seg Neutrophils % Seg Neuts % (Manual) Lymphocytes % (Manual) Monocytes % (Manual) Eosinophils % (Manual) Nucleated RBC % Seg Neutrophils # Lymphocytes # (Manual) Monocytes # (Manual) Eosinophils # (Manual) PT INR APTT POC ABG pH ABG pH POC ABG pCO2 POC ABG pO2 ABG pO2 ABG HCO3 ABG O2 Saturation ABG Base Excess ABG Hemoglobin Oxyhemoglobin Sodium Potassium Chloride Carbon Dioxide BUN Creatinine Glucose POC Glucose 113 H 130 H Uric Acid Calcium Phosphorus Magnesium AST ALT Total Creatine Kinase CK-MB (CK-2) Troponin T NT-Pro-B Natriuret Pep Total Protein Albumin Triglycerides HDL Cholesterol Urine WBC (Auto) Urine Creatinine Urine Total Protein Vancomycin Trough 05/14/19 05/14/19 05/14/19 04:00 04:34 05:32 WBC RBC Hgb Hct MCV MCH MCHC RDW Lymph % (Auto) [place] % (Auto) Eos % (Auto) Lymph # [place] # Eos # Seg Neutrophils % Seg Neuts % (Manual) Lymphocytes % (Manual) Monocytes % (Manual) Eosinophils % (Manual) Nucleated RBC % Seg Neutrophils # Lymphocytes # (Manual) Monocytes # (Manual) Eosinophils # (Manual) PT INR APTT POC ABG pH 7.328 L ABG pH POC ABG pCO2 61.7 H POC ABG pO2 ABG pO2 ABG HCO3 ABG O2 Saturation ABG Base Excess ABG Hemoglobin Oxyhemoglobin Sodium 135 L D Potassium Chloride Carbon Dioxide BUN 57 H Creatinine 2.2 H Glucose 115 H POC Glucose 115 H Uric Acid Calcium 8.1 L Phosphorus Magnesium AST ALT Total Creatine Kinase CK-MB (CK-2) Troponin T NT-Pro-B Natriuret Pep Total Protein Albumin Triglycerides HDL Cholesterol Urine WBC (Auto) Urine Creatinine Urine Total Protein Vancomycin Trough 05/14/19 05/15/19 05/15/19 12:11 05:10 05:24 WBC RBC Hgb Hct MCV MCH MCHC RDW Lymph % (Auto) [place] % (Auto) Eos % (Auto) Lymph # [place] # Eos # Seg Neutrophils % Seg Neuts % (Manual) Lymphocytes % (Manual) Monocytes % (Manual) Eosinophils % (Manual) Nucleated RBC % Seg Neutrophils # Lymphocytes # (Manual) Monocytes # (Manual) Eosinophils # (Manual) PT INR APTT POC ABG pH ABG pH 7.342 L POC ABG pCO2 POC ABG pO2 ABG pO2 79.1 L ABG HCO3 28.2 H ABG O2 Saturation ABG Base Excess ABG Hemoglobin 7.0 L Oxyhemoglobin 94.4 L Sodium Potassium Chloride Carbon Dioxide BUN Creatinine Glucose POC Glucose 110 H 116 H Uric Acid Calcium Phosphorus Magnesium AST ALT Total Creatine Kinase CK-MB (CK-2) Troponin T NT-Pro-B Natriuret Pep Total Protein Albumin Triglycerides HDL Cholesterol Urine WBC (Auto) Urine Creatinine Urine Total Protein Vancomycin Trough 05/15/19 05/15/19 05/16/19 09:00 18:12 04:50 WBC RBC Hgb Hct MCV MCH MCHC RDW Lymph % (Auto) [place] % (Auto) Eos % (Auto) Lymph # [place] # Eos # Seg Neutrophils % Seg Neuts % (Manual) Lymphocytes % (Manual) Monocytes % (Manual) Eosinophils % (Manual) Nucleated RBC % Seg Neutrophils # Lymphocytes # (Manual) Monocytes # (Manual) Eosinophils # (Manual) PT INR APTT POC ABG pH ABG pH 7.250 L POC ABG pCO2 POC ABG pO2 ABG pO2 76.4 L ABG HCO3 ABG O2 Saturation 94.6 L ABG Base Excess -3.1 L ABG Hemoglobin 9.7 L Oxyhemoglobin 92.4 L Sodium Potassium Chloride Carbon Dioxide BUN Creatinine Glucose POC Glucose 110 H Uric Acid Calcium Phosphorus Magnesium AST ALT Total Creatine Kinase CK-MB (CK-2) Troponin T NT-Pro-B Natriuret Pep Total Protein Albumin Triglycerides HDL Cholesterol Urine WBC (Auto) Urine Creatinine Urine Total Protein Vancomycin Trough 20.5 H 05/16/19 05/16/19 05/17/19 05:50 05:50 04:20 WBC RBC 3.36 L 3.44 L Hgb 9.4 L 9.3 L Hct 29.1 L 29.7 L MCV MCH 27 L MCHC 31 L RDW 17.6 H 17.6 H Lymph % (Auto) [place] % (Auto) Eos % (Auto) Lymph # [place] # Eos # Seg Neutrophils % Seg Neuts % (Manual) 77.0 H Lymphocytes % (Manual) 5.0 L Monocytes % (Manual) Eosinophils % (Manual) 10.0 H Nucleated RBC % Seg Neutrophils # Lymphocytes # (Manual) 0.5 L Monocytes # (Manual) Eosinophils # (Manual) 0.9 H PT INR APTT POC ABG pH ABG pH POC ABG pCO2 POC ABG pO2 ABG pO2 ABG HCO3 ABG O2 Saturation ABG Base Excess ABG Hemoglobin Oxyhemoglobin Sodium Potassium Chloride Carbon Dioxide BUN 83 H Creatinine 4.4 H D Glucose 118 H POC Glucose Uric Acid Calcium Phosphorus Magnesium AST ALT Total Creatine Kinase CK-MB (CK-2) Troponin T NT-Pro-B Natriuret Pep Total Protein Albumin Triglycerides HDL Cholesterol Urine WBC (Auto) Urine Creatinine Urine Total Protein Vancomycin Trough 05/17/19 05/17/19 05/18/19 04:30 Unknown 01:50 WBC RBC 3.49 L Hgb 9.4 L Hct 30.0 L MCV MCH 27 L MCHC 31 L RDW 17.8 H Lymph % (Auto) 7.9 L [place] % (Auto) 15.4 H Eos % (Auto) 6.3 H Lymph # 0.7 L [place] # 1.4 H Eos # 0.6 H Seg Neutrophils % 70.2 H Seg Neuts % (Manual) Lymphocytes % (Manual) Monocytes % (Manual) Eosinophils % (Manual) Nucleated RBC % Seg Neutrophils # Lymphocytes # (Manual) Monocytes # (Manual) Eosinophils # (Manual) PT INR APTT POC ABG pH ABG pH 7.272 L POC ABG pCO2 POC ABG pO2 ABG pO2 75.7 L ABG HCO3 ABG O2 Saturation 93.8 L ABG Base Excess -3.0 L ABG Hemoglobin 7.8 L Oxyhemoglobin 91.6 L Sodium Potassium 5.2 H Chloride Carbon Dioxide BUN 96 H Creatinine 5.7 H Glucose 112 H POC Glucose Uric Acid Calcium Phosphorus Magnesium AST ALT Total Creatine Kinase CK-MB (CK-2) Troponin T NT-Pro-B Natriuret Pep Total Protein Albumin Triglycerides 173 H HDL Cholesterol Urine WBC (Auto) Urine Creatinine Urine Total Protein Vancomycin Trough 05/18/19 05/18/19 05/18/19 01:50 04:41 05:24 WBC RBC Hgb Hct MCV MCH MCHC RDW Lymph % (Auto) [place] % (Auto) Eos % (Auto) Lymph # [place] # Eos # Seg Neutrophils % Seg Neuts % (Manual) Lymphocytes % (Manual) Monocytes % (Manual) Eosinophils % (Manual) Nucleated RBC % Seg Neutrophils # Lymphocytes # (Manual) Monocytes # (Manual) Eosinophils # (Manual) PT INR APTT POC ABG pH 7.260 L ABG pH POC ABG pCO2 54.9 H POC ABG pO2 ABG pO2 ABG HCO3 ABG O2 Saturation ABG Base Excess ABG Hemoglobin Oxyhemoglobin Sodium Potassium 5.6 H Chloride Carbon Dioxide BUN 104 H Creatinine 6.6 H Glucose 107 H POC Glucose 106 H Uric Acid Calcium Phosphorus Magnesium AST ALT Total Creatine Kinase CK-MB (CK-2) Troponin T NT-Pro-B Natriuret Pep Total Protein Albumin Triglycerides HDL Cholesterol Urine WBC (Auto) Urine Creatinine Urine Total Protein Vancomycin Trough 05/18/19 05/18/19 05/19/19 11:34 23:26 04:06 WBC RBC 3.22 L Hgb 8.8 L Hct 27.3 L MCV MCH 27 L MCHC RDW 17.5 H Lymph % (Auto) [place] % (Auto) Eos % (Auto) Lymph # [place] # Eos # Seg Neutrophils % Seg Neuts % (Manual) 74.0 H Lymphocytes % (Manual) 4.0 L Monocytes % (Manual) 11.0 H Eosinophils % (Manual) 7.0 H Nucleated RBC % 1.0 H Seg Neutrophils # Lymphocytes # (Manual) 0.3 L Monocytes # (Manual) 0.9 H Eosinophils # (Manual) 0.6 H PT INR APTT POC ABG pH ABG pH POC ABG pCO2 POC ABG pO2 ABG pO2 ABG HCO3 ABG O2 Saturation ABG Base Excess ABG Hemoglobin Oxyhemoglobin Sodium Potassium Chloride Carbon Dioxide BUN Creatinine Glucose POC Glucose 152 H 112 H Uric Acid Calcium Phosphorus Magnesium AST ALT Total Creatine Kinase CK-MB (CK-2) Troponin T NT-Pro-B Natriuret Pep Total Protein Albumin Triglycerides HDL Cholesterol Urine WBC (Auto) Urine Creatinine Urine Total Protein Vancomycin Trough 05/19/19 05/19/19 05/20/19 04:06 06:00 04:00 WBC RBC 3.40 L Hgb 9.2 L Hct 28.6 L MCV MCH 27 L MCHC RDW 17.6 H Lymph % (Auto) [place] % (Auto) Eos % (Auto) Lymph # [place] # Eos # Seg Neutrophils % Seg Neuts % (Manual) Lymphocytes % (Manual) 11.0 L Monocytes % (Manual) Eosinophils % (Manual) 14.0 H Nucleated RBC % Seg Neutrophils # Lymphocytes # (Manual) 1.1 L Monocytes # (Manual) Eosinophils # (Manual) 1.4 H PT INR APTT POC ABG pH ABG pH 7.315 L POC ABG pCO2 POC ABG pO2 ABG pO2 ABG HCO3 ABG O2 Saturation ABG Base Excess ABG Hemoglobin 6.7 L Oxyhemoglobin 94.1 L Sodium Potassium 5.2 H Chloride Carbon Dioxide 21 L BUN 110 H Creatinine 7.2 H Glucose POC Glucose Uric Acid Calcium 8.3 L Phosphorus Magnesium AST ALT Total Creatine Kinase CK-MB (CK-2) Troponin T NT-Pro-B Natriuret Pep Total Protein Albumin Triglycerides HDL Cholesterol Urine WBC (Auto) Urine Creatinine Urine Total Protein Vancomycin Trough 05/20/19 05/20/19 05/20/19 04:00 05:48 12:00 WBC RBC Hgb Hct MCV MCH MCHC RDW Lymph % (Auto) [place] % (Auto) Eos % (Auto) Lymph # [place] # Eos # Seg Neutrophils % Seg Neuts % (Manual) Lymphocytes % (Manual) Monocytes % (Manual) Eosinophils % (Manual) Nucleated RBC % Seg Neutrophils # Lymphocytes # (Manual) Monocytes # (Manual) Eosinophils # (Manual) PT INR APTT POC ABG pH ABG pH 7.281 L POC ABG pCO2 POC ABG pO2 ABG pO2 78.7 L ABG HCO3 ABG O2 Saturation 94.5 L ABG Base Excess -3.0 L ABG Hemoglobin 9.9 L Oxyhemoglobin 92.5 L Sodium 136 L Potassium 5.7 H Chloride 96.3 L Carbon Dioxide BUN 125 H Creatinine 8.3 H Glucose 106 H POC Glucose Uric Acid Calcium Phosphorus Magnesium AST ALT Total Creatine Kinase CK-MB (CK-2) Troponin T NT-Pro-B Natriuret Pep Total Protein Albumin Triglycerides HDL Cholesterol Urine WBC (Auto) 26.0 H Urine Creatinine Urine Total Protein Vancomycin Trough 05/21/19 05/21/19 05/21/19 04:33 05:20 Unknown WBC RBC 3.38 L Hgb 9.1 L Hct 28.5 L MCV MCH 27 L MCHC RDW 17.4 H Lymph % (Auto) [place] % (Auto) Eos % (Auto) Lymph # [place] # Eos # Seg Neutrophils % Seg Neuts % (Manual) 71.0 H Lymphocytes % (Manual) 1.0 L Monocytes % (Manual) 11.0 H Eosinophils % (Manual) 6.0 H Nucleated RBC % Seg Neutrophils # Lymphocytes # (Manual) 0.1 L Monocytes # (Manual) 1.0 H Eosinophils # (Manual) 0.6 H PT INR APTT POC ABG pH 7.315 L ABG pH POC ABG pCO2 57.8 H POC ABG pO2 68 L ABG pO2 ABG HCO3 ABG O2 Saturation ABG Base Excess ABG Hemoglobin Oxyhemoglobin Sodium Potassium Chloride 96.3 L Carbon Dioxide BUN 102 H Creatinine 7.0 H Glucose 103 H POC Glucose Uric Acid Calcium Phosphorus Magnesium AST ALT Total Creatine Kinase CK-MB (CK-2) Troponin T NT-Pro-B Natriuret Pep Total Protein Albumin Triglycerides HDL Cholesterol Urine WBC (Auto) Urine Creatinine Urine Total Protein Vancomycin Trough 05/22/19 05/22/19 05/22/19 03:54 06:25 06:25 WBC RBC 3.22 L Hgb 8.6 L Hct 27.0 L MCV MCH 27 L MCHC RDW 17.5 H Lymph % (Auto) [place] % (Auto) 16.2 H Eos % (Auto) 10.8 H Lymph # [place] # 1.3 H Eos # 0.9 H Seg Neutrophils % Seg Neuts % (Manual) Lymphocytes % (Manual) 10.0 L Monocytes % (Manual) 13.0 H Eosinophils % (Manual) 8.0 H Nucleated RBC % Seg Neutrophils # Lymphocytes # (Manual) 0.9 L Monocytes # (Manual) 1.1 H Eosinophils # (Manual) 0.7 H PT INR APTT POC ABG pH 7.313 L ABG pH POC ABG pCO2 55.0 H POC ABG pO2 ABG pO2 ABG HCO3 ABG O2 Saturation ABG Base Excess ABG Hemoglobin Oxyhemoglobin Sodium 135 L Potassium Chloride 94.3 L Carbon Dioxide BUN 117 H Creatinine 7.8 H Glucose POC Glucose Uric Acid Calcium 8.2 L Phosphorus Magnesium AST ALT Total Creatine Kinase CK-MB (CK-2) Troponin T NT-Pro-B Natriuret Pep Total Protein Albumin Triglycerides HDL Cholesterol Urine WBC (Auto) Urine Creatinine Urine Total Protein Vancomycin Trough 05/23/19 05:21 WBC RBC Hgb Hct MCV MCH MCHC RDW Lymph % (Auto) [place] % (Auto) Eos % (Auto) Lymph # [place] # Eos # Seg Neutrophils % Seg Neuts % (Manual) Lymphocytes % (Manual) Monocytes % (Manual) Eosinophils % (Manual) Nucleated RBC % Seg Neutrophils # Lymphocytes # (Manual) Monocytes # (Manual) Eosinophils # (Manual) PT INR APTT POC ABG pH ABG pH POC ABG pCO2 49.7 H POC ABG pO2 73 L ABG pO2 ABG HCO3 ABG O2 Saturation ABG Base Excess ABG Hemoglobin Oxyhemoglobin Sodium Potassium Chloride Carbon Dioxide BUN Creatinine Glucose POC Glucose Uric Acid Calcium Phosphorus Magnesium AST ALT Total Creatine Kinase CK-MB (CK-2) Troponin T NT-Pro-B Natriuret Pep Total Protein Albumin Triglycerides HDL Cholesterol Urine WBC (Auto) Urine Creatinine Urine Total Protein Vancomycin Trough
[2019-05-23] MEDS: ACETAMINOPHEN 325 MG TAB PO PRN (14:49)
--- NOTE | 2019-05-23 18:58 | Progress Note ---
Assessment and Plan Cultures: Blood cultures 05/11/19: no growth thus far Blood cultures 05/18/19 pending Sputum culture 05/11/19: no growth thus far urine culture: no growth resp culture: no growth Blood culture 05/18/2019: no growth thus far urine culture 05/20/2019: normal skin shandra sputum culture 05/20/2019: Xenia albicans A/P: 34-year-old male with obesity admitted with: #Fever, SIRS with shock: shock resolved, still fever. Initially felt to be ?aspiration related. Apparently was using CPAP. Persistent febrile again, likely ?UTI. Repeat UA showed pyuria, had indwelling Han which was removed again 05/20. Urine culture with normal skin shandra. Fevers now recurred since 05/17. Should eval for worsening pneumonia. #Acute hypoxic hypercapneic respiratory failure, possibly obesity hypoventilation syndrome: on the vent. Pulmonary managing. #Morbid obesity #CARLA: creatinine elevated. dose abx accordingly. Now on HD via vascath #Elevated LFTs: RUQ US showed fatty liver, small GB sludge. Improving. #Acute encephalopathy with ?seizure activity: persistent fevers. Has been receiving empiric meningitis coverage #UTI: s/p han removal on 05/20 Recs: - obtain CT head, sinus and chest tomorrow ? persistent fever - repeat blood cx - ordered - continue cefepime - continue metronidazole - add vancomycin renally adjusted will follow MD Ay[facility] ([facility]) Office [phone] Subjective Date of service: 05/23/19 Principal diagnosis: HF; acute hypoxemic resp failure, SIRS, CARLA Interval history: Remains on the vent tmax 101.2, off pressors Objective - Exam Narrative Exam: Constitutional: obses, sedated, intubated. FiO2 50%, p18 Head, Ears, Nose: Normocephalic, atraumatic. External ears, nose normal Eyes: Conjunctivae/corneas clear. No icterus. No ptosis. Neck: intubated Oral: intubated ETT with thick brown secretion Cardiovascular: S1, S2 normal. Respiratory: carlos rhonchi GI: Soft, non-tender; bowel sounds normal. No peritoneal signs Musculoskeletal: No pedal edema, no cyanosis. Skin: No rash or abscess Hem/Lymphatic: No palpable cervical or supraclavicular nodes. No lymphangitis Psych: no agitation Neurological: sedated, intubated, on vent right vascath with clean dressing - Constitutional Vitals: Vital Signs Temp Pulse Resp BP Pulse Ox 101.1 F H 105 H 6 L 117/56 93 05/23/19 12:00 05/23/19 18:30 05/23/19 18:30 05/23/19 18:30 05/23/19 18:30 Temperature -Last 24 Hours Temperature 101.1 F Temperature 101.2 F Temperature 100.2 F Temperature 94.9 F Temperature 99.7 F - Labs CBC & Chem 7: 05/22/19 06:25 05/22/19 06:25 Labs: Abnormal lab results 05/23/19 Range/Units 05:21 POC ABG pCO2 49.7 H (35-45) POC ABG pO2 73 L (80-105)
[2019-05-23] MEDS ORDERED: VANCOMYCIN/NS 1 GM/250 ML 1 GM/250 ML BAG IV SCH (20:00)
[2019-05-23] MEDS ORDERED: VANCOMYCIN 2,000 MG in SODIUM CHLORIDE 0.9% 500 ML 500 ML IV ONE (20:15)
[2019-05-24] MEDS: fentaNYL DRIP Premix 2,000 MCG/100 ML BAG IV SCH ×7 (01:45→23:00)
[2019-05-24] MEDS: metroNIDAZOLE/NS 500 MG/100 ML 500 MG/100 ML BAG IV SCH ×3 (05:05→22:32)
[2019-05-24 06:27] LABS: Hematocrit 26.7 % (35.5-45.6); Hemoglobin 8.5 gm/dl (11.8-15.2); Mean Corpuscular HGB Conc 32 % (32-34); Mean Corpuscular Volume 84 fl (84-94); Platelet Count 289 K/mm3 (140-440); Red Blood Count 3.18 M/mm3 (3.65-5.03); Red Cell Distribution Width 17.9 % (13.2-15.2)
--- NOTE | 2019-05-24 07:57 | Progress Note ---
Assessment and Plan Assessment and plan: Patient is a 34-year-old man who is morbidly obese (575 lbs) with unknown medical history who presented to [facility] ED on 05/01/2019 (I started seeing patient for the first time on 05/20/19, Day 19) with SOB. He was placed on BIPAP and failed. He had cardiac arrest in ED and was Intubated in ED. On 05/12/19- ETT exchanged due to hypoxia. In the chart there is a report that he has undiagnosis LANDON and using someone else CPAP. 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 Acute hypoxic and hypercapenic respiratory failure on vent >96hrs Status post intubation, continue sedation, consulted pulmonary And input noted still on high PEEP, making Tracheostomy difficult to attempt. Language Asst managing. Obesity Hypoventilation syndrome Patient previously on LANDON Management at home but per discussion with family, was non complaint Sepsis- not present on admission -On abx, ID following. LP when able ?Meningitis considering recurrent fever. Doubt, but ID following Acylovir stopped ?seizure activity -Meninigitis prophy -Neurology consult -EEG-negative Acute CHF, new onset, diastolic Diurese with IV lasix held, on HD now monitor I/O, daily weights Cardiology following. Added beta-jenny, no TIM inhibitor secondary to renal insufficiency Hypertension malignant Start antihypertensive, monitor blood pressure IV hydralazine as needed for further control Acute kidney injury due to ATN ?Vancomycin toxicity, Held. Monitor Nephrology following and input noted. Han for strict I/Os HD per nephrology Hyperkalemia-Kaylexate Passive congestive hepatic syndrome -LFT elevated but trending down -Noted Gallbladder sludge DVT prophylaxis with Lovenox Morbid obesity Full code status. Prognosis guarded +han removed +ETT +NGT +Fentanyl; and Rosemarie RUE PIcc off levaphed since morning 05/20/2019 receiving HD drool, with increased secretion, scopolamine patch helped ?trach consideration, intubated since admission 05/01/19==>high PEEP, ?PEG consideration Still febrile, I called his mother Magalis Jay at [phone] no family present History Interval history: Patient was seen and examined. Follow-up on current diagnosis of Respiratory failure. Overnight uneventful. Imaging, nursing note, chart, labs and old chart reviewed. Still intubated and sedated Hospitalist Physical - Physical exam Narrative exam: Gen: critically ill, bmi 70.1 sedated HEENT: NCAT, OP ETT in place Neck: supple, no adenopathy, no thyromegaly, no JVD CVS/Heart: tachycardiac, normal S1S2, pulses present bilaterally Chest/Lungs: tachypneic, Symmetrical chest expansion, good air entry bilaterally GI/Abdomen: soft, NTND, good bowel sounds, no guarding or rebound : scrotal edema, unable to see his penis Extermity/Skin: good skin turgor MSK: sedated Neuro: sedated Psych: sedated - Constitutional Vitals: Temp Pulse Resp BP Pulse Ox 100.8 F H 105 H 20 111/52 90 05/24/19 03:53 05/24/19 06:33 05/24/19 06:30 05/24/19 06:33 05/24/19 06:30 General appearance: Present: no acute distress Results - Labs CBC & Chem 7: 05/24/19 05:00 05/24/19 05:00 Labs: Laboratory Last Values WBC 6.9 K/mm3 (4.5-11.0) 05/24/19 05:00 RBC 3.18 M/mm3 (3.65-5.03) L 05/24/19 05:00 Hgb 8.5 gm/dl (11.8-15.2) L 05/24/19 05:00 Hct 26.7 % (35.5-45.6) L 05/24/19 05:00 MCV 84 fl (84-94) 05/24/19 05:00 MCH 27 pg (28-32) L 05/24/19 05:00 MCHC 32 % (32-34) 05/24/19 05:00 RDW 17.9 % (13.2-15.2) H 05/24/19 05:00 Plt Count 289 K/mm3 (140-440) 05/24/19 05:00 Lymph % (Auto) 7.9 % (13.4-35.0) L 05/18/19 01:50 Glenn % (Auto) 16.2 % (0.0-7.3) H 05/22/19 06:25 Eos % (Auto) 10.8 % (0.0-4.3) H 05/22/19 06:25 Baso % (Auto) 0.2 % (0.0-1.8) 05/18/19 01:50 Lymph # 0.7 K/mm3 (1.2-5.4) L 05/18/19 01:50 Glenn # 1.3 K/mm3 (0.0-0.8) H 05/22/19 06:25 Eos # 0.9 K/mm3 (0.0-0.4) H 05/22/19 06:25 Baso # 0.0 K/mm3 (0.0-0.1) 05/22/19 06:25 Add Manual Diff Complete 05/22/19 06:25 Total Counted 100 05/22/19 06:25 Seg Neutrophils % 65.5 % (40.0-70.0) 05/22/19 06:25 Seg Neuts % (Manual) 65.0 % (40.0-70.0) 05/22/19 06:25 Band Neutrophils % 3.0 % 05/22/19 06:25 Lymphocytes % (Manual) 10.0 % (13.4-35.0) L 05/22/19 06:25 Reactive Lymphs % (Man) 0 % 05/22/19 06:25 Monocytes % (Manual) 13.0 % (0.0-7.3) H 05/22/19 06:25 Eosinophils % (Manual) 8.0 % (0.0-4.3) H 05/22/19 06:25 Basophils % (Manual) 0 % (0.0-1.8) 05/22/19 06:25 Metamyelocytes % 1.0 % 05/22/19 06:25 Myelocytes % 0 % 05/22/19 06:25 Promyelocytes % 0 % 05/22/19 06:25 Blast Cells % 0 % 05/22/19 06:25 Nucleated RBC % Not Reportable 05/22/19 06:25 Seg Neutrophils # 5.3 K/mm3 (1.8-7.7) 05/22/19 06:25 Seg Neutrophils # Man 5.6 K/mm3 (1.8-7.7) 05/22/19 06:25 Band Neutrophils # 0.3 K/mm3 05/22/19 06:25 Lymphocytes # (Manual) 0.9 K/mm3 (1.2-5.4) L 05/22/19 06:25 Abs React Lymphs (Man) 0.0 K/mm3 05/22/19 06:25 Monocytes # (Manual) 1.1 K/mm3 (0.0-0.8) H 05/22/19 06:25 Eosinophils # (Manual) 0.7 K/mm3 (0.0-0.4) H 05/22/19 06:25 Basophils # (Manual) 0.0 K/mm3 (0.0-0.1) 05/22/19 06:25 Metamyelocytes # 0.1 K/mm3 05/22/19 06:25 Myelocytes # 0.0 K/mm3 05/22/19 06:25 Promyelocytes # 0.0 K/mm3 05/22/19 06:25 Blast Cells # 0.0 K/mm3 05/22/19 06:25 WBC Morphology Not Reportable 05/22/19 06:25 Hypersegmented Neuts Not Reportable 05/22/19 06:25 Hyposegmented Neuts Not Reportable 05/22/19 06:25 Hypogranular Neuts Not Reportable 05/22/19 06:25 Smudge Cells Not Reportable 05/22/19 06:25 Toxic Granulation Not Reportable 05/22/19 06:25 Toxic Vacuolation Not Reportable 05/22/19 06:25 Dohle Bodies Not Reportable 05/22/19 06:25 Pelger-Huet Anomaly Not Reportable 05/22/19 06:25 Renea Rods Not Reportable 05/22/19 06:25 Platelet Estimate Consistent w auto 05/22/19 06:25 Clumped Platelets Not Reportable 05/22/19 06:25 Plt Clumps, EDTA Not Reportable 05/22/19 06:25 Large Platelets Not Reportable 05/22/19 06:25 Giant Platelets Not Reportable 05/22/19 06:25 Platelet Satelliting Not Reportable 05/22/19 06:25 Plt Morphology Comment Not Reportable 05/22/19 06:25 RBC Morphology Not Reportable 05/22/19 06:25 Dimorphic RBCs Not Reportable 05/22/19 06:25 Polychromasia Not Reportable 05/22/19 06:25 Hypochromasia Few 05/22/19 06:25 Poikilocytosis Not Reportable 05/22/19 06:25 Anisocytosis Not Reportable 05/22/19 06:25 Microcytosis Not Reportable 05/22/19 06:25 Macrocytosis Not Reportable 05/22/19 06:25 Spherocytes Not Reportable 05/22/19 06:25 Pappenheimer Bodies Not Reportable 05/22/19 06:25 Sickle Cells Not Reportable 05/22/19 06:25 Target Cells Not Reportable 05/22/19 06:25 Tear Drop Cells Not Reportable 05/22/19 06:25 Ovalocytes Few 05/22/19 06:25 Stomatocytes Few 05/22/19 06:25 Helmet Cells Not Reportable 05/22/19 06:25 [place] Bodies Not Reportable 05/22/19 06:25 [place] Rings Not Reportable 05/22/19 06:25 Dennis Cells Not Reportable 05/22/19 06:25 Bite Cells Not Reportable 05/22/19 06:25 Crenated Cell Not Reportable 05/22/19 06:25 Elliptocytes Not Reportable 05/22/19 06:25 Acanthocytes (Spur) Not Reportable 05/22/19 06:25 Rouleaux Not Reportable 05/22/19 06:25 Hemoglobin C Crystals Not Reportable 05/22/19 06:25 Schistocytes Few 05/22/19 06:25 Malaria parasites Not Reportable 05/22/19 06:25 Syed Bodies Not Reportable 05/22/19 06:25 Hem Pathologist Commnt No 05/22/19 06:25 PT 15.4 Sec. (12.2-14.9) H 05/01/19 Unknown INR 1.23 (0.87-1.13) H 05/01/19 Unknown APTT 22.7 Sec. (24.2-36.6) L 05/01/19 Unknown POC ABG pH 7.330 (7.35-7.45) L 05/24/19 06:17 ABG pH 7.281 pH Units (7.350-7.450) L 05/20/19 05:48 POC ABG pCO2 52.5 (35-45) H 05/24/19 06:17 ABG pCO2 52.0 mm Hg 05/20/19 05:48 POC ABG pO2 96 (80-105) 05/24/19 06:17 ABG pO2 78.7 mm Hg (80.0-90.0) L 05/20/19 05:48 POC ABG HCO3 27.7 (22-26 mml/L) 05/24/19 06:17 ABG HCO3 24.0 mmol/L (20.0-26.0) 05/20/19 05:48 POC ABG Total CO2 29 (23-27mmol/L) 05/24/19 06:17 POC ABG O2 Sat 97 05/24/19 06:17 ABG O2 Saturation 94.5 % (95.0-99.0) L 05/20/19 05:48 ABG O2 Content 13.0 (0.0-44) 05/20/19 05:48 POC ABG Base Excess 2 ((-2) - (+3)mmol/L) 05/24/19 06:17 ABG Base Excess -3.0 mmol/L (-2.0-3.0) L 05/20/19 05:48 ABG Hemoglobin 9.9 gm/dl (14.0-18.0) L 05/20/19 05:48 ABG Carboxyhemoglobin 1.6 % (0.0-5.0) 05/20/19 05:48 ABG Methemoglobin 0.6 % (0.0-1.5) 05/20/19 05:48 Oxyhemoglobin 92.5 % (95.0-99.0) L 05/20/19 05:48 FiO2 50 % 05/24/19 06:17 Sodium 139 mmol/L (137-145) 05/24/19 05:00 Potassium 4.5 mmol/L (3.6-5.0) 05/24/19 05:00 Chloride 95.7 mmol/L (98-107) L 05/24/19 05:00 Carbon Dioxide 22 mmol/L (22-30) 05/24/19 05:00 Anion Gap 26 mmol/L 05/24/19 05:00 BUN 97 mg/dL (9-20) H 05/24/19 05:00 Creatinine 6.5 mg/dL (0.8-1.5) H 05/24/19 05:00 Estimated GFR 12 ml/min 05/24/19 05:00 BUN/Creatinine Ratio 15 % 05/24/19 05:00 Glucose 79 mg/dL (75-100) 05/24/19 05:00 POC Glucose 91 (70-105) 05/23/19 12:17 Osmolality 327 Mosm/kg 05/07/19 13:45 Uric Acid 18.0 mg/dL (3.5-7.6) H 05/07/19 13:45 Calcium 8.0 mg/dL (8.4-10.2) L 05/24/19 05:00 Phosphorus 4.90 mg/dL (2.5-4.5) H 05/02/19 00:06 Magnesium 2.30 mg/dL (1.7-2.3) 05/02/19 00:06 Total Bilirubin 0.20 mg/dL (0.1-1.2) 05/10/19 05:00 AST 34 units/L (5-40) 05/10/19 05:00 ALT 35 units/L (7-56) 05/10/19 05:00 Alkaline Phosphatase 45 units/L (35-129) 05/10/19 05:00 Total Creatine Kinase 131 units/L (55-170) 05/02/19 04:41 CK-MB (CK-2) 5.2 ng/mL (0.0-4.0) H 05/02/19 04:41 CK-MB (CK-2) Rel Index 3.9 (0-4) 05/02/19 04:41 Troponin T 0.067 ng/mL (0.00-0.029) H D 05/02/19 04:41 NT-Pro-B Natriuret Pep 6831 pg/mL (0-450) H 05/01/19 Unknown Total Protein 6.1 g/dL (6.3-8.2) L 05/10/19 05:00 Albumin 2.5 g/dL (3.9-5) L 05/10/19 05:00 Albumin/Globulin Ratio 0.7 % 05/10/19 05:00 Triglycerides 173 mg/dL (2-149) H 05/17/19 Unknown Cholesterol 173 mg/dL (50-199) 05/02/19 00:06 LDL Cholesterol Direct 126 mg/dL (50-130) 05/02/19 00:06 HDL Cholesterol 18 mg/dL (40-59) L 05/02/19 00:06 Cholesterol/HDL Ratio 9.61 % 05/02/19 00:06 Procalcitonin 0.54 ng/mL (<0.15) 05/03/19 11:52 Urine Color Yellow (Yellow) 05/20/19 12:00 Urine Turbidity Cloudy (Clear) 05/20/19 12:00 Urine pH 5.0 (5.0-7.0) 05/20/19 12:00 Ur Specific [place] 1.015 (1.003-1.030) 05/20/19 12:00 Urine Protein 30 mg/dl mg/dL (Negative) 05/20/19 12:00 Urine Glucose (UA) Neg mg/dL (Negative) 05/20/19 12:00 Urine Ketones Neg mg/dL (Negative) 05/20/19 12:00 Urine Blood Lg (Negative) 05/20/19 12:00 Urine Nitrite Neg (Negative) 05/20/19 12:00 Urine Bilirubin Neg (Negative) 05/20/19 12:00 Urine Urobilinogen < 2.0 mg/dL (<2.0) 05/20/19 12:00 Ur Leukocyte Esterase Mod (Negative) 05/20/19 12:00 Urine WBC (Auto) 26.0 /HPF (0.0-6.0) H 05/20/19 12:00 Urine RBC (Auto) 83.0 /HPF (0.0-6.0) 05/20/19 12:00 Urine Bacteria (Auto) 1+ /HPF (Negative) 05/20/19 12:00 Uric Acid Crystals 3+ 05/03/19 10:55 Urine Mucus Few /HPF 05/20/19 12:00 Urine Yeast (Budding) 3+ /HPF 05/20/19 12:00 Urine Creatinine 292.8 mg/dL (0.1-20.0) H 05/07/19 22:40 Urine Sodium 11 mmol/L 05/07/19 22:40 Urine Total Protein 269 mg/dL (5-11.8) H 05/07/19 22:40 Vancomycin Trough 20.5 ug/mL (5.0-20.0) H 05/15/19 09:00 Random Vancomycin 14.0 ug/mL (0-40.0) 05/21/19 05:20 AMNA Screen Negative (Negative) 05/07/19 13:45 Hepatitis A IgM Ab Non-reactive (NonReactive) 05/07/19 13:45 Hep Bs Antigen Non-reactive (Negative) 05/07/19 13:45 Hep B Core IgM Ab Non-reactive (NonReactive) 05/07/19 13:45 Hepatitis C Antibody Non-reactive (NonReactive) 05/07/19 13:45 Active Medications - Current Medications Current Medications: Generic Name Dose Route Start Last Admin Trade Name Freq PRN Reason Stop Dose Admin Acetaminophen 650 mg 05/01/19 22:46 05/23/19 14:49 Tylenol PO 650 mg Q4H PRN Administration Pain MILD(1-3)/Fever >100.5/FREEMAN Albumin Human 25 gm 05/19/19 10:47 Alburx 25% (Albumin) IV ARIANE PRN Hypotension Lipase/Protease/Amylase 1 each 05/14/19 15:01 Pancremannie Fletcher 10,500 Unit FEEDTUBE PRN PRN For Clogged Feeding Tube Dextrose 50 gm 05/01/19 20:24 D50w (25gm) Vial IV Q30MIN PRN Hypoglycemia Protocol Enoxaparin Sodium 30 mg 05/16/19 10:00 05/23/19 10:04 Enoxaparin SUB-Q 30 mg QDAY VICKEY Administration Epoetin Hugo 10,000 unit 05/19/19 10:47 Procrit IV ARIANE PRN hemodialysis Famotidine 20 mg 05/16/19 10:00 05/23/19 10:04 Pepcid PO 20 mg DAILY VICKEY Administration Hydralazine HCl 20 mg 05/13/19 08:09 05/14/19 18:09 Apresoline IV 20 mg Q4HR PRN Administration SBP >/=160 Hydrophilic Ointment 1 applic 05/01/19 21:14 Vaseline Lip Therapy TP Q2HR PRN Dry Lips Fentanyl Citrate 2,000 mcg in 100 mls @ 10.195 mls/hr 05/01/19 22:00 05/24/19 06:32 Fentanyl Drip Premix IV 2 mcg/kg/hr TITR VICKEY 20.39 mls/hr Administration Protocol 1 MCG/KG/HR Propofol 1,000 mg in 100 mls @ 7.011 mls/hr 05/03/19 04:00 05/24/19 06:32 Diprivan 10 Mg/Ml IV 10 mcg/kg/min TITR VICKEY 14.022 mls/hr Administration Protocol 5 MCG/KG/MIN Norepinephrine 4 mg in 250 mls @ 7.5 mls/hr 05/03/19 18:00 05/20/19 08:04 Levophed Drip 4 Mg/Ns 250 Ml IV 0 mcg/min TITR VICKEY 0 mls/hr Titration Protocol 2 MCG/MIN Sodium Chloride 500 mls @ 10 mls/hr 05/06/19 15:00 Nacl 0.9% 500 Ml IV DIRECT VICKEY Metronidazole 500 mg in 100 mls @ 100 mls/hr 05/11/19 14:00 05/24/19 05:05 Flagyl 500 Mg/100 Ml IV 100 mls/hr Q8HR VICKEY Administration Protocol Nicardipine HCl 50 mg/ Sodium 250 mls @ 25 mls/hr 05/13/19 10:00 05/14/19 23:12 Chloride IV 0 mg/hr TITR VICKEY 0 mls/hr Titration Protocol 5 MG/HR Cefepime HCl 2 gm in 100 mls @ 200 mls/hr 05/18/19 11:00 05/23/19 10:04 Cefepime/Ns 2 Gm/100 Ml IV 200 mls/hr Q24HR VICKEY Administration Protocol Sodium Chloride 100 mls @ 999 mls/hr 05/19/19 10:47 05/20/19 08:14 Nacl 0.9% IV 999 mls/hr ARIANE PRN Administration Hypotension Labetalol HCl 100 mg 05/14/19 14:00 05/24/19 06:33 Labetalol PO 100 mg Q8HR VICKEY Administration Levetiracetam 750 mg 05/13/19 10:00 05/23/19 21:47 Keppra PO 750 mg BID VICKEY Administration Lorazepam 2 mg 05/06/19 06:22 05/10/19 16:17 Ativan IV 2 mg Q4H PRN Administration Seizures/AGITATION Multi-Ingred Cream/Lotion/Oil/Oint 1 applic 05/01/19 21:14 Artificial Tears Ophth Oint OU Q4HR PRN Dry Eye(s) Ondansetron HCl 4 mg 05/01/19 22:46 Zofran IV Q8H PRN Nausea And Vomiting Scopolamine 1 each 05/20/19 12:00 05/20/19 12:52 Transderm-Scop TD 1 each Q72HR VICKEY Administration Simple Syrup 15 ml 05/14/19 15:01 Simple Syrup FEEDTUBE PRN PRN Hypoglycemia Simple Syrup 30 ml 05/14/19 15:01 Simple Syrup FEEDTUBE PRN PRN Hypoglycemia Sodium Bicarbonate 325 mg 05/14/19 15:01 Sodium Bicarbonate FEEDTUBE PRN PRN For Clogged Feeding Tube Sodium Chloride 10 ml 05/02/19 10:00 05/23/19 22:05 Sodium Chloride Flush Syringe 10 Ml IV 10 ml BID VICKEY Administration Sodium Chloride 10 ml 05/01/19 22:46 05/05/19 02:28 Sodium Chloride Flush Syringe 10 Ml IV 10 ml PRN PRN Administration LINE FLUSH Nutrition/Malnutrition Assess - Dietary Evaluation Nutrition/Malnutrition Findings: Nutrition Notes Start: 05/04/19 12:54 Freq: Status: Active Protocol: Document 05/21/19 10:08 LM (Rec: 05/21/19 10:26 LM [id number]) Nutrition Notes Initial or Follow up Reassessment Current Diagnosis Acute Kidney Injury,Sepsis, Respiratory Failure Current Diet Nepro 1.8 at 50 ml/hr Labs/Tests Na 137 BUN 102 Cr 7 BG 103 Pertinent Medications Propofol at 7.011 ml/hr (185 kcal) Height 6 ft 4 in Weight 261.4 kg [place] Body Weight (kg) 91.81 BMI 70.1 Weight change and time frame Wt change noted. Likely due to fluid Weight Status Morbidly Obese Subjective/Other Information Nepro running at 50 ml/hr at time of visit. Will keep flush at 150 ml q4h until Na increases. Pt received HD on 05/20. Pt tolerating TF. Percent of energy/protein needs met: 86%/43% Burn Absent Trauma Absent Current % PO Negligible Minimum of two criteria No physical signs of malnutrition #1 Nutrition Diagnosis Inadequate oral intake Diagnosis Progress(for reassessment Continues documentation) Is patient on ventilator? Yes Is Patient Ambulatory and/or Out of Bed No REE-([facility]-confined to bed) 4392.636 Kcal/Kg value to use for calculation 11 Approximate Energy Requirements Using 2875 kcal/Kg Calculation Used for Recommendations Kcal/kg Additional Notes Energy needs: 2503 kcal PRO needs: 225 g (up to 2.5 g/ kg 91.81 IBW) Fluid needs: 1 ml/kcal Nutrition Intervention Change Diet Order: Continue TF Nutrition Support: Nepro 1.8 at 50 ml/hr flush 150 ml q4hr for hyponatremia flush 200 ml q4h once hyponatremia resolves Kcal 2,160 Protein (gm) 97 Fluid (mL) 872 Goal #1 TF tolerance Goal #2 Meet at least 75% kcal/PRO needs via TF Anticipated Discharge Needs: Unable to determine at this time Follow-Up By: 05/28/19 Additional Comments F/U for TF tolerance/Na lab
--- NOTE | 2019-05-24 07:57 | Progress Note ---
Subjective Date of service: 05/24/19 Principal diagnosis: HF; acute hypoxemic resp failure, SIRS, CARLA Interval history: reviewed all notes and went over labs assessed recent studies / went over notes will continue to follow closely do not believe b/c of weight we can access MRI or CT clinically aka ischemic encephalopathy post arrest Objective - Vital Sign Vital Signs - 12hr 05/23/19 05/23/19 05/23/19 20:00 20:15 20:30 Temperature Pulse Rate 102 H 101 H 104 H Pulse Rate [ 110 H From Monitor] Respiratory 17 8 L 10 L Rate Blood Pressure 120/61 121/59 126/63 O2 Sat by Pulse 91 91 91 Oximetry 05/23/19 05/23/19 05/23/19 20:45 21:00 21:15 Temperature Pulse Rate 103 H 102 H 107 H Pulse Rate [ From Monitor] Respiratory 21 15 11 L Rate Blood Pressure 122/62 123/56 131/65 O2 Sat by Pulse 91 92 93 Oximetry 05/23/19 05/23/19 05/23/19 21:30 21:45 21:48 Temperature Pulse Rate 114 H 114 H 113 H Pulse Rate [ From Monitor] Respiratory 27 H 20 Rate Blood Pressure 134/111 134/64 134/64 O2 Sat by Pulse 93 93 Oximetry 05/23/19 05/23/19 05/23/19 22:00 22:06 22:15 Temperature Pulse Rate 106 H 103 H 104 H Pulse Rate [ 112 H From Monitor] Respiratory 13 19 Rate Blood Pressure 121/39 121/39 125/50 O2 Sat by Pulse 92 92 94 Oximetry 05/23/19 05/23/19 05/23/19 22:30 22:45 23:00 Temperature Pulse Rate 103 H 102 H 103 H Pulse Rate [ From Monitor] Respiratory 16 19 15 Rate Blood Pressure 117/45 123/48 120/51 O2 Sat by Pulse 93 94 93 Oximetry 05/23/19 05/23/19 05/23/19 23:15 23:30 23:45 Temperature Pulse Rate 103 H 101 H 100 H Pulse Rate [ From Monitor] Respiratory 18 17 14 Rate Blood Pressure 128/55 120/50 122/47 O2 Sat by Pulse 94 93 93 Oximetry 05/23/19 05/24/19 05/24/19 23:53 00:00 00:15 Temperature 99.4 F Pulse Rate 100 H 99 H Pulse Rate [ 94 H From Monitor] Respiratory 16 18 Rate Blood Pressure 116/43 125/47 O2 Sat by Pulse 93 94 Oximetry 05/24/19 05/24/19 05/24/19 00:30 00:37 00:45 Temperature Pulse Rate 97 H 95 H Pulse Rate [ From Monitor] Respiratory 19 17 Rate Blood Pressure 115/41 115/41 113/38 O2 Sat by Pulse 94 94 94 Oximetry 05/24/19 05/24/19 05/24/19 01:00 01:08 01:15 Temperature Pulse Rate 95 H 93 H Pulse Rate [ From Monitor] Respiratory 19 16 16 Rate Blood Pressure 111/36 113/37 O2 Sat by Pulse 95 94 Oximetry 05/24/19 05/24/19 05/24/19 01:30 01:45 02:00 Temperature Pulse Rate 96 H 102 H 100 H Pulse Rate [ 88 From Monitor] Respiratory 26 H 22 20 Rate Blood Pressure 114/38 130/54 117/40 O2 Sat by Pulse 94 95 95 Oximetry 05/24/19 05/24/19 05/24/19 02:15 02:30 02:45 Temperature Pulse Rate 95 H 97 H 93 H Pulse Rate [ From Monitor] Respiratory 19 26 H 12 Rate Blood Pressure 113/35 121/45 113/41 O2 Sat by Pulse 94 96 95 Oximetry 05/24/19 05/24/19 05/24/19 03:00 03:15 03:30 Temperature Pulse Rate 93 H 94 H 96 H Pulse Rate [ From Monitor] Respiratory 17 14 16 Rate Blood Pressure 112/38 111/35 112/35 O2 Sat by Pulse 95 95 96 Oximetry 05/24/19 05/24/19 05/24/19 03:45 03:53 04:00 Temperature 100.8 F H Pulse Rate 105 H 101 H Pulse Rate [ 101 H From Monitor] Respiratory 17 12 Rate Blood Pressure 121/43 115/38 O2 Sat by Pulse 95 93 Oximetry 05/24/19 05/24/19 05/24/19 04:15 04:30 04:45 Temperature Pulse Rate 97 H 97 H 98 H Pulse Rate [ From Monitor] Respiratory 0 L 13 26 H Rate Blood Pressure 115/34 124/41 107/29 O2 Sat by Pulse 93 94 94 Oximetry 05/24/19 05/24/19 05/24/19 05:00 05:15 05:30 Temperature Pulse Rate 93 H 96 H 94 H Pulse Rate [ From Monitor] Respiratory 27 H 26 H 26 H Rate Blood Pressure 106/29 107/35 111/36 O2 Sat by Pulse 95 95 95 Oximetry 05/24/19 05/24/19 05/24/19 05:45 06:00 06:05 Temperature Pulse Rate 96 H 101 H 106 H Pulse Rate [ From Monitor] Respiratory 25 H 22 Rate Blood Pressure 105/34 122/42 122/42 O2 Sat by Pulse 93 93 95 Oximetry 05/24/19 05/24/19 05/24/19 06:15 06:30 06:33 Temperature Pulse Rate 109 H 108 H 105 H Pulse Rate [ From Monitor] Respiratory 22 20 Rate Blood Pressure 118/61 111/52 111/52 O2 Sat by Pulse 94 90 Oximetry - Laboratory Findings CBC and BMP: 05/24/19 05:00 05/24/19 05:00 Abnormal Lab Findings: Abnormal Labs 05/01/19 05/01/19 05/01/19 17:50 19:26 22:36 WBC RBC Hgb Hct MCV MCH MCHC RDW Lymph % (Auto) [place] % (Auto) Eos % (Auto) Lymph # [place] # Eos # Seg Neutrophils % Seg Neuts % (Manual) Lymphocytes % (Manual) Monocytes % (Manual) Eosinophils % (Manual) Nucleated RBC % Seg Neutrophils # Lymphocytes # (Manual) Monocytes # (Manual) Eosinophils # (Manual) PT INR APTT POC ABG pH 7.272 L 7.331 L ABG pH POC ABG pCO2 52.8 H POC ABG pO2 ABG pO2 ABG HCO3 ABG O2 Saturation ABG Base Excess ABG Hemoglobin Oxyhemoglobin Sodium 136 L Potassium 6.5 H* Chloride 97.2 L Carbon Dioxide BUN 60 H Creatinine Glucose 113 H POC Glucose Uric Acid Calcium Phosphorus Magnesium 2.40 H AST 139 H ALT 154 H Total Creatine Kinase CK-MB (CK-2) Troponin T NT-Pro-B Natriuret Pep Total Protein Albumin 3.8 L Triglycerides HDL Cholesterol Urine WBC (Auto) Urine Creatinine Urine Total Protein Vancomycin Trough 05/01/19 05/01/19 05/01/19 Unknown Unknown Unknown WBC 16.1 H RBC Hgb Hct MCV MCH MCHC RDW 17.2 H Lymph % (Auto) [place] % (Auto) 9.6 H Eos % (Auto) Lymph # [place] # 1.5 H Eos # Seg Neutrophils % 73.0 H Seg Neuts % (Manual) Lymphocytes % (Manual) Monocytes % (Manual) Eosinophils % (Manual) Nucleated RBC % Seg Neutrophils # 11.7 H Lymphocytes # (Manual) Monocytes # (Manual) Eosinophils # (Manual) PT 15.4 H INR 1.23 H APTT 22.7 L POC ABG pH ABG pH POC ABG pCO2 POC ABG pO2 ABG pO2 ABG HCO3 ABG O2 Saturation ABG Base Excess ABG Hemoglobin Oxyhemoglobin Sodium Potassium Chloride Carbon Dioxide BUN Creatinine Glucose POC Glucose Uric Acid Calcium Phosphorus Magnesium AST ALT Total Creatine Kinase CK-MB (CK-2) Troponin T NT-Pro-B Natriuret Pep 6831 H Total Protein Albumin Triglycerides HDL Cholesterol Urine WBC (Auto) Urine Creatinine Urine Total Protein Vancomycin Trough 05/01/19 05/02/19 05/02/19 Unknown 00:06 00:06 WBC RBC Hgb Hct MCV MCH MCHC RDW Lymph % (Auto) [place] % (Auto) Eos % (Auto) Lymph # [place] # Eos # Seg Neutrophils % Seg Neuts % (Manual) Lymphocytes % (Manual) Monocytes % (Manual) Eosinophils % (Manual) Nucleated RBC % Seg Neutrophils # Lymphocytes # (Manual) Monocytes # (Manual) Eosinophils # (Manual) PT INR APTT POC ABG pH ABG pH POC ABG pCO2 POC ABG pO2 ABG pO2 ABG HCO3 ABG O2 Saturation ABG Base Excess ABG Hemoglobin Oxyhemoglobin Sodium Potassium Chloride Carbon Dioxide BUN Creatinine Glucose POC Glucose Uric Acid Calcium Phosphorus 4.90 H Magnesium AST ALT Total Creatine Kinase 226 H CK-MB (CK-2) 5.7 H Troponin T 0.044 H NT-Pro-B Natriuret Pep Total Protein Albumin Triglycerides 182 H HDL Cholesterol 18 L Urine WBC (Auto) Urine Creatinine Urine Total Protein Vancomycin Trough 05/02/19 05/02/19 05/02/19 02:08 04:40 04:41 WBC 17.6 H RBC Hgb Hct MCV MCH 27 L MCHC RDW 17.4 H Lymph % (Auto) 10.2 L [place] % (Auto) 11.0 H Eos % (Auto) Lymph # [place] # 1.9 H Eos # Seg Neutrophils % 78.0 H Seg Neuts % (Manual) Lymphocytes % (Manual) Monocytes % (Manual) Eosinophils % (Manual) Nucleated RBC % Seg Neutrophils # 13.8 H Lymphocytes # (Manual) Monocytes # (Manual) Eosinophils # (Manual) PT INR APTT POC ABG pH ABG pH POC ABG pCO2 46.8 H POC ABG pO2 63 L ABG pO2 ABG HCO3 ABG O2 Saturation ABG Base Excess ABG Hemoglobin Oxyhemoglobin Sodium Potassium Chloride 96.3 L Carbon Dioxide BUN 63 H Creatinine 1.7 H Glucose POC Glucose Uric Acid Calcium Phosphorus Magnesium AST ALT Total Creatine Kinase CK-MB (CK-2) Troponin T NT-Pro-B Natriuret Pep Total Protein Albumin Triglycerides HDL Cholesterol Urine WBC (Auto) Urine Creatinine Urine Total Protein Vancomycin Trough 05/02/19 05/02/19 05/02/19 04:41 04:41 16:05 WBC RBC Hgb Hct MCV MCH MCHC RDW Lymph % (Auto) [place] % (Auto) Eos % (Auto) Lymph # [place] # Eos # Seg Neutrophils % Seg Neuts % (Manual) Lymphocytes % (Manual) Monocytes % (Manual) Eosinophils % (Manual) Nucleated RBC % Seg Neutrophils # Lymphocytes # (Manual) Monocytes # (Manual) Eosinophils # (Manual) PT INR APTT POC ABG pH ABG pH POC ABG pCO2 POC ABG pO2 ABG pO2 66.6 L ABG HCO3 31.9 H ABG O2 Saturation 92.5 L ABG Base Excess 5.8 H ABG Hemoglobin 13.3 L Oxyhemoglobin 90.6 L Sodium Potassium Chloride 97.2 L Carbon Dioxide BUN 61 H Creatinine 1.8 H Glucose POC Glucose Uric Acid Calcium Phosphorus Magnesium AST ALT Total Creatine Kinase CK-MB (CK-2) 5.2 H Troponin T 0.067 H D NT-Pro-B Natriuret Pep Total Protein Albumin Triglycerides HDL Cholesterol Urine WBC (Auto) Urine Creatinine Urine Total Protein Vancomycin Trough 05/02/19 05/03/19 05/03/19 20:39 04:35 05:05 WBC 11.8 H RBC Hgb Hct MCV MCH 27 L MCHC 31 L RDW 17.2 H Lymph % (Auto) [place] % (Auto) Eos % (Auto) Lymph # [place] # Eos # Seg Neutrophils % Seg Neuts % (Manual) Lymphocytes % (Manual) Monocytes % (Manual) Eosinophils % (Manual) Nucleated RBC % Seg Neutrophils # Lymphocytes # (Manual) Monocytes # (Manual) Eosinophils # (Manual) PT INR APTT POC ABG pH ABG pH POC ABG pCO2 53.6 H 54.0 H POC ABG pO2 55 L 63 L ABG pO2 ABG HCO3 ABG O2 Saturation ABG Base Excess ABG Hemoglobin Oxyhemoglobin Sodium Potassium Chloride Carbon Dioxide BUN Creatinine Glucose POC Glucose Uric Acid Calcium Phosphorus Magnesium AST ALT Total Creatine Kinase CK-MB (CK-2) Troponin T NT-Pro-B Natriuret Pep Total Protein Albumin Triglycerides HDL Cholesterol Urine WBC (Auto) Urine Creatinine Urine Total Protein Vancomycin Trough 05/03/19 05/03/19 05/03/19 05:05 10:55 16:48 WBC RBC Hgb Hct MCV MCH MCHC RDW Lymph % (Auto) [place] % (Auto) Eos % (Auto) Lymph # [place] # Eos # Seg Neutrophils % Seg Neuts % (Manual) Lymphocytes % (Manual) Monocytes % (Manual) Eosinophils % (Manual) Nucleated RBC % Seg Neutrophils # Lymphocytes # (Manual) Monocytes # (Manual) Eosinophils # (Manual) PT INR APTT POC ABG pH 7.604 H ABG pH POC ABG pCO2 POC ABG pO2 58 L ABG pO2 ABG HCO3 ABG O2 Saturation ABG Base Excess ABG Hemoglobin Oxyhemoglobin Sodium Potassium Chloride Carbon Dioxide BUN 52 H Creatinine 1.9 H Glucose 103 H POC Glucose Uric Acid Calcium Phosphorus Magnesium AST ALT Total Creatine Kinase CK-MB (CK-2) Troponin T NT-Pro-B Natriuret Pep Total Protein Albumin Triglycerides HDL Cholesterol Urine WBC (Auto) 33.0 H Urine Creatinine Urine Total Protein Vancomycin Trough 05/04/19 05/04/19 05/04/19 04:49 06:50 06:50 WBC 16.0 H RBC Hgb Hct MCV MCH 27 L MCHC 31 L RDW 17.8 H Lymph % (Auto) [place] % (Auto) Eos % (Auto) Lymph # [place] # Eos # Seg Neutrophils % Seg Neuts % (Manual) Lymphocytes % (Manual) Monocytes % (Manual) Eosinophils % (Manual) Nucleated RBC % Seg Neutrophils # Lymphocytes # (Manual) Monocytes # (Manual) Eosinophils # (Manual) PT INR APTT POC ABG pH 7.273 L ABG pH POC ABG pCO2 POC ABG pO2 ABG pO2 ABG HCO3 ABG O2 Saturation ABG Base Excess ABG Hemoglobin Oxyhemoglobin Sodium 148 H Potassium 5.5 H Chloride Carbon Dioxide BUN 53 H Creatinine 3.3 H D Glucose 106 H POC Glucose Uric Acid Calcium 8.3 L Phosphorus Magnesium AST ALT Total Creatine Kinase CK-MB (CK-2) Troponin T NT-Pro-B Natriuret Pep Total Protein Albumin Triglycerides HDL Cholesterol Urine WBC (Auto) Urine Creatinine Urine Total Protein Vancomycin Trough 05/05/19 05/05/19 05/05/19 00:05 04:30 05:00 WBC RBC Hgb Hct MCV MCH MCHC RDW Lymph % (Auto) [place] % (Auto) Eos % (Auto) Lymph # [place] # Eos # Seg Neutrophils % Seg Neuts % (Manual) Lymphocytes % (Manual) Monocytes % (Manual) Eosinophils % (Manual) Nucleated RBC % Seg Neutrophils # Lymphocytes # (Manual) Monocytes # (Manual) Eosinophils # (Manual) PT INR APTT POC ABG pH 7.225 L ABG pH POC ABG pCO2 > 70 H POC ABG pO2 ABG pO2 ABG HCO3 ABG O2 Saturation ABG Base Excess ABG Hemoglobin Oxyhemoglobin Sodium 151 H Potassium 5.1 H Chloride Carbon Dioxide BUN 64 H Creatinine 3.5 H Glucose 117 H POC Glucose 141 H Uric Acid Calcium 7.5 L Phosphorus Magnesium AST 93 H ALT 65 H Total Creatine Kinase CK-MB (CK-2) Troponin T NT-Pro-B Natriuret Pep Total Protein Albumin 2.9 L Triglycerides HDL Cholesterol Urine WBC (Auto) Urine Creatinine Urine Total Protein Vancomycin Trough 05/05/19 05/05/19 05/05/19 05:00 12:02 17:46 WBC 12.0 H RBC Hgb 11.3 L Hct MCV MCH 27 L MCHC 30 L RDW 18.4 H Lymph % (Auto) 7.9 L [place] % (Auto) 10.2 H Eos % (Auto) Lymph # 1.0 L [place] # 1.2 H Eos # Seg Neutrophils % 80.8 H Seg Neuts % (Manual) Lymphocytes % (Manual) Monocytes % (Manual) Eosinophils % (Manual) Nucleated RBC % Seg Neutrophils # 9.7 H Lymphocytes # (Manual) Monocytes # (Manual) Eosinophils # (Manual) PT INR APTT POC ABG pH ABG pH POC ABG pCO2 POC ABG pO2 ABG pO2 ABG HCO3 ABG O2 Saturation ABG Base Excess ABG Hemoglobin Oxyhemoglobin Sodium Potassium Chloride Carbon Dioxide BUN Creatinine Glucose POC Glucose 125 H 112 H Uric Acid Calcium Phosphorus Magnesium AST ALT Total Creatine Kinase CK-MB (CK-2) Troponin T NT-Pro-B Natriuret Pep Total Protein Albumin Triglycerides HDL Cholesterol Urine WBC (Auto) Urine Creatinine Urine Total Protein Vancomycin Trough 05/05/19 05/06/19 05/06/19 23:42 03:58 04:45 WBC 11.4 H RBC Hgb 10.7 L Hct 34.2 L MCV MCH 27 L MCHC 31 L RDW 16.9 H Lymph % (Auto) [place] % (Auto) Eos % (Auto) Lymph # [place] # Eos # Seg Neutrophils % Seg Neuts % (Manual) Lymphocytes % (Manual) Monocytes % (Manual) Eosinophils % (Manual) Nucleated RBC % Seg Neutrophils # Lymphocytes # (Manual) Monocytes # (Manual) Eosinophils # (Manual) PT INR APTT POC ABG pH ABG pH POC ABG pCO2 62.4 H POC ABG pO2 111 H ABG pO2 ABG HCO3 ABG O2 Saturation ABG Base Excess ABG Hemoglobin Oxyhemoglobin Sodium Potassium Chloride Carbon Dioxide BUN Creatinine Glucose POC Glucose 128 H Uric Acid Calcium Phosphorus Magnesium AST ALT Total Creatine Kinase CK-MB (CK-2) Troponin T NT-Pro-B Natriuret Pep Total Protein Albumin Triglycerides HDL Cholesterol Urine WBC (Auto) Urine Creatinine Urine Total Protein Vancomycin Trough 05/06/19 05/06/19 05/06/19 04:45 05:33 12:30 WBC RBC Hgb Hct MCV MCH MCHC RDW Lymph % (Auto) [place] % (Auto) Eos % (Auto) Lymph # [place] # Eos # Seg Neutrophils % Seg Neuts % (Manual) Lymphocytes % (Manual) Monocytes % (Manual) Eosinophils % (Manual) Nucleated RBC % Seg Neutrophils # Lymphocytes # (Manual) Monocytes # (Manual) Eosinophils # (Manual) PT INR APTT POC ABG pH ABG pH POC ABG pCO2 POC ABG pO2 ABG pO2 ABG HCO3 ABG O2 Saturation ABG Base Excess ABG Hemoglobin Oxyhemoglobin Sodium 149 H Potassium Chloride Carbon Dioxide 31 H BUN 67 H Creatinine 3.2 H Glucose 125 H POC Glucose 117 H 116 H Uric Acid Calcium 7.5 L Phosphorus Magnesium AST ALT Total Creatine Kinase CK-MB (CK-2) Troponin T NT-Pro-B Natriuret Pep Total Protein Albumin Triglycerides HDL Cholesterol Urine WBC (Auto) Urine Creatinine Urine Total Protein Vancomycin Trough 05/06/19 05/06/19 05/07/19 18:34 23:16 05:22 WBC RBC Hgb Hct MCV MCH MCHC RDW Lymph % (Auto) [place] % (Auto) Eos % (Auto) Lymph # [place] # Eos # Seg Neutrophils % Seg Neuts % (Manual) Lymphocytes % (Manual) Monocytes % (Manual) Eosinophils % (Manual) Nucleated RBC % Seg Neutrophils # Lymphocytes # (Manual) Monocytes # (Manual) Eosinophils # (Manual) PT INR APTT POC ABG pH ABG pH POC ABG pCO2 POC ABG pO2 ABG pO2 ABG HCO3 ABG O2 Saturation ABG Base Excess ABG Hemoglobin Oxyhemoglobin Sodium Potassium Chloride Carbon Dioxide BUN Creatinine Glucose POC Glucose 128 H 143 H 166 H Uric Acid Calcium Phosphorus Magnesium AST ALT Total Creatine Kinase CK-MB (CK-2) Troponin T NT-Pro-B Natriuret Pep Total Protein Albumin Triglycerides HDL Cholesterol Urine WBC (Auto) Urine Creatinine Urine Total Protein Vancomycin Trough 05/07/19 05/07/19 05/07/19 06:33 07:03 09:35 WBC RBC Hgb Hct MCV MCH MCHC RDW Lymph % (Auto) [place] % (Auto) Eos % (Auto) Lymph # [place] # Eos # Seg Neutrophils % Seg Neuts % (Manual) Lymphocytes % (Manual) Monocytes % (Manual) Eosinophils % (Manual) Nucleated RBC % Seg Neutrophils # Lymphocytes # (Manual) Monocytes # (Manual) Eosinophils # (Manual) PT INR APTT POC ABG pH 7.263 L 7.288 L ABG pH POC ABG pCO2 POC ABG pO2 51 L 56 L ABG pO2 ABG HCO3 ABG O2 Saturation ABG Base Excess ABG Hemoglobin Oxyhemoglobin Sodium Potassium Chloride Carbon Dioxide BUN 76 H Creatinine 3.2 H Glucose 147 H POC Glucose Uric Acid Calcium 7.9 L Phosphorus Magnesium AST ALT Total Creatine Kinase CK-MB (CK-2) Troponin T NT-Pro-B Natriuret Pep Total Protein Albumin Triglycerides HDL Cholesterol Urine WBC (Auto) Urine Creatinine Urine Total Protein Vancomycin Trough 05/07/19 05/07/19 05/07/19 09:35 12:17 13:45 WBC 13.4 H RBC Hgb 11.6 L Hct MCV MCH 27 L MCHC 31 L RDW 17.5 H Lymph % (Auto) [place] % (Auto) Eos % (Auto) Lymph # [place] # Eos # Seg Neutrophils % Seg Neuts % (Manual) Lymphocytes % (Manual) Monocytes % (Manual) Eosinophils % (Manual) Nucleated RBC % Seg Neutrophils # Lymphocytes # (Manual) Monocytes # (Manual) Eosinophils # (Manual) PT INR APTT POC ABG pH ABG pH POC ABG pCO2 POC ABG pO2 ABG pO2 ABG HCO3 ABG O2 Saturation ABG Base Excess ABG Hemoglobin Oxyhemoglobin Sodium Potassium Chloride Carbon Dioxide BUN Creatinine Glucose POC Glucose 130 H Uric Acid 18.0 H Calcium Phosphorus Magnesium AST ALT Total Creatine Kinase CK-MB (CK-2) Troponin T NT-Pro-B Natriuret Pep Total Protein Albumin Triglycerides HDL Cholesterol Urine WBC (Auto) Urine Creatinine Urine Total Protein Vancomycin Trough 05/07/19 05/07/19 05/08/19 17:39 22:40 05:06 WBC RBC Hgb Hct MCV MCH MCHC RDW Lymph % (Auto) [place] % (Auto) Eos % (Auto) Lymph # [place] # Eos # Seg Neutrophils % Seg Neuts % (Manual) Lymphocytes % (Manual) Monocytes % (Manual) Eosinophils % (Manual) Nucleated RBC % Seg Neutrophils # Lymphocytes # (Manual) Monocytes # (Manual) Eosinophils # (Manual) PT INR APTT POC ABG pH ABG pH POC ABG pCO2 POC ABG pO2 ABG pO2 ABG HCO3 ABG O2 Saturation ABG Base Excess ABG Hemoglobin Oxyhemoglobin Sodium Potassium Chloride Carbon Dioxide BUN Creatinine Glucose POC Glucose 116 H 148 H Uric Acid Calcium Phosphorus Magnesium AST ALT Total Creatine Kinase CK-MB (CK-2) Troponin T NT-Pro-B Natriuret Pep Total Protein Albumin Triglycerides HDL Cholesterol Urine WBC (Auto) Urine Creatinine 292.8 H Urine Total Protein 269 H Vancomycin Trough 05/08/19 05/08/19 05/08/19 05:32 11:28 13:48 WBC RBC Hgb Hct MCV MCH MCHC RDW Lymph % (Auto) [place] % (Auto) Eos % (Auto) Lymph # [place] # Eos # Seg Neutrophils % Seg Neuts % (Manual) Lymphocytes % (Manual) Monocytes % (Manual) Eosinophils % (Manual) Nucleated RBC % Seg Neutrophils # Lymphocytes # (Manual) Monocytes # (Manual) Eosinophils # (Manual) PT INR APTT POC ABG pH ABG pH POC ABG pCO2 45.4 H POC ABG pO2 64 L ABG pO2 ABG HCO3 ABG O2 Saturation ABG Base Excess ABG Hemoglobin Oxyhemoglobin Sodium Potassium Chloride Carbon Dioxide BUN 73 H Creatinine 2.7 H Glucose 127 H POC Glucose 107 H Uric Acid Calcium 7.6 L Phosphorus Magnesium AST ALT Total Creatine Kinase CK-MB (CK-2) Troponin T NT-Pro-B Natriuret Pep Total Protein Albumin Triglycerides HDL Cholesterol Urine WBC (Auto) Urine Creatinine Urine Total Protein Vancomycin Trough 05/08/19 05/09/19 05/09/19 17:48 04:50 04:53 WBC RBC 3.07 L Hgb 8.5 L D Hct 29.3 L D MCV 96 H MCH MCHC 29 L RDW 18.1 H Lymph % (Auto) [place] % (Auto) Eos % (Auto) Lymph # [place] # Eos # Seg Neutrophils % Seg Neuts % (Manual) Lymphocytes % (Manual) Monocytes % (Manual) Eosinophils % (Manual) Nucleated RBC % Seg Neutrophils # Lymphocytes # (Manual) Monocytes # (Manual) Eosinophils # (Manual) PT INR APTT POC ABG pH 7.316 L ABG pH POC ABG pCO2 66.0 H POC ABG pO2 69 L ABG pO2 ABG HCO3 ABG O2 Saturation ABG Base Excess ABG Hemoglobin Oxyhemoglobin Sodium Potassium Chloride Carbon Dioxide BUN Creatinine Glucose POC Glucose 155 H Uric Acid Calcium Phosphorus Magnesium AST ALT Total Creatine Kinase CK-MB (CK-2) Troponin T NT-Pro-B Natriuret Pep Total Protein Albumin Triglycerides HDL Cholesterol Urine WBC (Auto) Urine Creatinine Urine Total Protein Vancomycin Trough 05/09/19 05/09/19 05/09/19 05:46 07:24 12:10 WBC RBC Hgb Hct MCV MCH MCHC RDW Lymph % (Auto) [place] % (Auto) Eos % (Auto) Lymph # [place] # Eos # Seg Neutrophils % Seg Neuts % (Manual) Lymphocytes % (Manual) Monocytes % (Manual) Eosinophils % (Manual) Nucleated RBC % Seg Neutrophils # Lymphocytes # (Manual) Monocytes # (Manual) Eosinophils # (Manual) PT INR APTT POC ABG pH ABG pH POC ABG pCO2 POC ABG pO2 ABG pO2 ABG HCO3 ABG O2 Saturation ABG Base Excess ABG Hemoglobin Oxyhemoglobin Sodium Potassium Chloride Carbon Dioxide BUN 73 H Creatinine 2.4 H Glucose 153 H POC Glucose 123 H 148 H Uric Acid Calcium 8.2 L Phosphorus Magnesium AST 45 H ALT Total Creatine Kinase CK-MB (CK-2) Troponin T NT-Pro-B Natriuret Pep Total Protein 6.0 L Albumin 1.9 L Triglycerides HDL Cholesterol Urine WBC (Auto) Urine Creatinine Urine Total Protein Vancomycin Trough 05/09/19 05/09/19 05/10/19 18:23 23:26 04:52 WBC RBC Hgb Hct MCV MCH MCHC RDW Lymph % (Auto) [place] % (Auto) Eos % (Auto) Lymph # [place] # Eos # Seg Neutrophils % Seg Neuts % (Manual) Lymphocytes % (Manual) Monocytes % (Manual) Eosinophils % (Manual) Nucleated RBC % Seg Neutrophils # Lymphocytes # (Manual) Monocytes # (Manual) Eosinophils # (Manual) PT INR APTT POC ABG pH 7.305 L ABG pH POC ABG pCO2 62.6 H POC ABG pO2 ABG pO2 ABG HCO3 ABG O2 Saturation ABG Base Excess ABG Hemoglobin Oxyhemoglobin Sodium Potassium Chloride Carbon Dioxide BUN Creatinine Glucose POC Glucose 147 H 121 H Uric Acid Calcium Phosphorus Magnesium AST ALT Total Creatine Kinase CK-MB (CK-2) Troponin T NT-Pro-B Natriuret Pep Total Protein Albumin Triglycerides HDL Cholesterol Urine WBC (Auto) Urine Creatinine Urine Total Protein Vancomycin Trough 05/10/19 05/10/19 05/10/19 05:00 05:00 05:50 WBC RBC Hgb 10.3 L Hct 33.7 L MCV MCH 27 L MCHC 31 L RDW 17.0 H Lymph % (Auto) [place] % (Auto) Eos % (Auto) Lymph # [place] # Eos # Seg Neutrophils % Seg Neuts % (Manual) Lymphocytes % (Manual) Monocytes % (Manual) Eosinophils % (Manual) Nucleated RBC % Seg Neutrophils # Lymphocytes # (Manual) Monocytes # (Manual) Eosinophils # (Manual) PT INR APTT POC ABG pH ABG pH POC ABG pCO2 POC ABG pO2 ABG pO2 ABG HCO3 ABG O2 Saturation ABG Base Excess ABG Hemoglobin Oxyhemoglobin Sodium 147 H Potassium Chloride Carbon Dioxide BUN 70 H Creatinine 2.6 H Glucose 155 H POC Glucose 158 H Uric Acid Calcium 8.2 L Phosphorus Magnesium AST ALT Total Creatine Kinase CK-MB (CK-2) Troponin T NT-Pro-B Natriuret Pep Total Protein 6.1 L Albumin 2.5 L Triglycerides HDL Cholesterol Urine WBC (Auto) Urine Creatinine Urine Total Protein Vancomycin Trough 05/10/19 05/11/19 05/11/19 13:14 07:26 11:40 WBC RBC Hgb Hct MCV MCH MCHC RDW Lymph % (Auto) [place] % (Auto) Eos % (Auto) Lymph # [place] # Eos # Seg Neutrophils % Seg Neuts % (Manual) Lymphocytes % (Manual) Monocytes % (Manual) Eosinophils % (Manual) Nucleated RBC % Seg Neutrophils # Lymphocytes # (Manual) Monocytes # (Manual) Eosinophils # (Manual) PT INR APTT POC ABG pH ABG pH POC ABG pCO2 48.0 H POC ABG pO2 58 L ABG pO2 ABG HCO3 ABG O2 Saturation ABG Base Excess ABG Hemoglobin Oxyhemoglobin Sodium 147 H Potassium Chloride 107.2 H Carbon Dioxide BUN 67 H Creatinine 2.6 H Glucose 121 H POC Glucose 159 H Uric Acid Calcium Phosphorus Magnesium AST ALT Total Creatine Kinase CK-MB (CK-2) Troponin T NT-Pro-B Natriuret Pep Total Protein Albumin Triglycerides HDL Cholesterol Urine WBC (Auto) Urine Creatinine Urine Total Protein Vancomycin Trough 05/11/19 05/11/19 05/12/19 18:13 23:46 04:40 WBC RBC Hgb Hct MCV MCH MCHC RDW Lymph % (Auto) [place] % (Auto) Eos % (Auto) Lymph # [place] # Eos # Seg Neutrophils % Seg Neuts % (Manual) Lymphocytes % (Manual) Monocytes % (Manual) Eosinophils % (Manual) Nucleated RBC % Seg Neutrophils # Lymphocytes # (Manual) Monocytes # (Manual) Eosinophils # (Manual) PT INR APTT POC ABG pH ABG pH 7.264 L POC ABG pCO2 POC ABG pO2 ABG pO2 66.8 L ABG HCO3 31.0 H ABG O2 Saturation 92.0 L ABG Base Excess ABG Hemoglobin 10.3 L Oxyhemoglobin 90.1 L Sodium Potassium Chloride Carbon Dioxide BUN Creatinine Glucose POC Glucose 120 H 121 H Uric Acid Calcium Phosphorus Magnesium AST ALT Total Creatine Kinase CK-MB (CK-2) Troponin T NT-Pro-B Natriuret Pep Total Protein Albumin Triglycerides HDL Cholesterol Urine WBC (Auto) Urine Creatinine Urine Total Protein Vancomycin Trough 05/12/19 05/12/19 05/12/19 04:45 04:45 11:14 WBC RBC Hgb 10.2 L Hct 32.4 L MCV MCH MCHC 31 L RDW 17.2 H Lymph % (Auto) [place] % (Auto) Eos % (Auto) Lymph # [place] # Eos # Seg Neutrophils % Seg Neuts % (Manual) Lymphocytes % (Manual) Monocytes % (Manual) Eosinophils % (Manual) Nucleated RBC % Seg Neutrophils # Lymphocytes # (Manual) Monocytes # (Manual) Eosinophils # (Manual) PT INR APTT POC ABG pH 7.284 L ABG pH POC ABG pCO2 67.8 H POC ABG pO2 ABG pO2 ABG HCO3 ABG O2 Saturation ABG Base Excess ABG Hemoglobin Oxyhemoglobin Sodium Potassium Chloride Carbon Dioxide BUN 63 H Creatinine 2.4 H Glucose 110 H POC Glucose Uric Acid Calcium Phosphorus Magnesium AST ALT Total Creatine Kinase CK-MB (CK-2) Troponin T NT-Pro-B Natriuret Pep Total Protein Albumin Triglycerides HDL Cholesterol Urine WBC (Auto) Urine Creatinine Urine Total Protein Vancomycin Trough 05/12/19 05/12/19 05/13/19 11:44 23:11 04:30 WBC RBC Hgb Hct MCV MCH MCHC RDW Lymph % (Auto) [place] % (Auto) Eos % (Auto) Lymph # [place] # Eos # Seg Neutrophils % Seg Neuts % (Manual) Lymphocytes % (Manual) Monocytes % (Manual) Eosinophils % (Manual) Nucleated RBC % Seg Neutrophils # Lymphocytes # (Manual) Monocytes # (Manual) Eosinophils # (Manual) PT INR APTT POC ABG pH ABG pH 7.288 L POC ABG pCO2 POC ABG pO2 ABG pO2 109.7 H ABG HCO3 30.9 H ABG O2 Saturation ABG Base Excess 3.2 H ABG Hemoglobin 9.6 L Oxyhemoglobin Sodium Potassium Chloride Carbon Dioxide BUN Creatinine Glucose POC Glucose 126 H 147 H Uric Acid Calcium Phosphorus Magnesium AST ALT Total Creatine Kinase CK-MB (CK-2) Troponin T NT-Pro-B Natriuret Pep Total Protein Albumin Triglycerides HDL Cholesterol Urine WBC (Auto) Urine Creatinine Urine Total Protein Vancomycin Trough 05/13/19 05/13/19 05/14/19 06:27 11:58 04:00 WBC RBC 3.16 L Hgb 9.3 L Hct 27.9 L MCV MCH MCHC RDW 17.1 H Lymph % (Auto) [place] % (Auto) Eos % (Auto) Lymph # [place] # Eos # Seg Neutrophils % Seg Neuts % (Manual) Lymphocytes % (Manual) Monocytes % (Manual) Eosinophils % (Manual) Nucleated RBC % Seg Neutrophils # Lymphocytes # (Manual) Monocytes # (Manual) Eosinophils # (Manual) PT INR APTT POC ABG pH ABG pH POC ABG pCO2 POC ABG pO2 ABG pO2 ABG HCO3 ABG O2 Saturation ABG Base Excess ABG Hemoglobin Oxyhemoglobin Sodium Potassium Chloride Carbon Dioxide BUN Creatinine Glucose POC Glucose 113 H 130 H Uric Acid Calcium Phosphorus Magnesium AST ALT Total Creatine Kinase CK-MB (CK-2) Troponin T NT-Pro-B Natriuret Pep Total Protein Albumin Triglycerides HDL Cholesterol Urine WBC (Auto) Urine Creatinine Urine Total Protein Vancomycin Trough 05/14/19 05/14/19 05/14/19 04:00 04:34 05:32 WBC RBC Hgb Hct MCV MCH MCHC RDW Lymph % (Auto) [place] % (Auto) Eos % (Auto) Lymph # [place] # Eos # Seg Neutrophils % Seg Neuts % (Manual) Lymphocytes % (Manual) Monocytes % (Manual) Eosinophils % (Manual) Nucleated RBC % Seg Neutrophils # Lymphocytes # (Manual) Monocytes # (Manual) Eosinophils # (Manual) PT INR APTT POC ABG pH 7.328 L ABG pH POC ABG pCO2 61.7 H POC ABG pO2 ABG pO2 ABG HCO3 ABG O2 Saturation ABG Base Excess ABG Hemoglobin Oxyhemoglobin Sodium 135 L D Potassium Chloride Carbon Dioxide BUN 57 H Creatinine 2.2 H Glucose 115 H POC Glucose 115 H Uric Acid Calcium 8.1 L Phosphorus Magnesium AST ALT Total Creatine Kinase CK-MB (CK-2) Troponin T NT-Pro-B Natriuret Pep Total Protein Albumin Triglycerides HDL Cholesterol Urine WBC (Auto) Urine Creatinine Urine Total Protein Vancomycin Trough 05/14/19 05/15/19 05/15/19 12:11 05:10 05:24 WBC RBC Hgb Hct MCV MCH MCHC RDW Lymph % (Auto) [place] % (Auto) Eos % (Auto) Lymph # [place] # Eos # Seg Neutrophils % Seg Neuts % (Manual) Lymphocytes % (Manual) Monocytes % (Manual) Eosinophils % (Manual) Nucleated RBC % Seg Neutrophils # Lymphocytes # (Manual) Monocytes # (Manual) Eosinophils # (Manual) PT INR APTT POC ABG pH ABG pH 7.342 L POC ABG pCO2 POC ABG pO2 ABG pO2 79.1 L ABG HCO3 28.2 H ABG O2 Saturation ABG Base Excess ABG Hemoglobin 7.0 L Oxyhemoglobin 94.4 L Sodium Potassium Chloride Carbon Dioxide BUN Creatinine Glucose POC Glucose 110 H 116 H Uric Acid Calcium Phosphorus Magnesium AST ALT Total Creatine Kinase CK-MB (CK-2) Troponin T NT-Pro-B Natriuret Pep Total Protein Albumin Triglycerides HDL Cholesterol Urine WBC (Auto) Urine Creatinine Urine Total Protein Vancomycin Trough 05/15/19 05/15/19 05/16/19 09:00 18:12 04:50 WBC RBC Hgb Hct MCV MCH MCHC RDW Lymph % (Auto) [place] % (Auto) Eos % (Auto) Lymph # [place] # Eos # Seg Neutrophils % Seg Neuts % (Manual) Lymphocytes % (Manual) Monocytes % (Manual) Eosinophils % (Manual) Nucleated RBC % Seg Neutrophils # Lymphocytes # (Manual) Monocytes # (Manual) Eosinophils # (Manual) PT INR APTT POC ABG pH ABG pH 7.250 L POC ABG pCO2 POC ABG pO2 ABG pO2 76.4 L ABG HCO3 ABG O2 Saturation 94.6 L ABG Base Excess -3.1 L ABG Hemoglobin 9.7 L Oxyhemoglobin 92.4 L Sodium Potassium Chloride Carbon Dioxide BUN Creatinine Glucose POC Glucose 110 H Uric Acid Calcium Phosphorus Magnesium AST ALT Total Creatine Kinase CK-MB (CK-2) Troponin T NT-Pro-B Natriuret Pep Total Protein Albumin Triglycerides HDL Cholesterol Urine WBC (Auto) Urine Creatinine Urine Total Protein Vancomycin Trough 20.5 H 05/16/19 05/16/19 05/17/19 05:50 05:50 04:20 WBC RBC 3.36 L 3.44 L Hgb 9.4 L 9.3 L Hct 29.1 L 29.7 L MCV MCH 27 L MCHC 31 L RDW 17.6 H 17.6 H Lymph % (Auto) [place] % (Auto) Eos % (Auto) Lymph # [place] # Eos # Seg Neutrophils % Seg Neuts % (Manual) 77.0 H Lymphocytes % (Manual) 5.0 L Monocytes % (Manual) Eosinophils % (Manual) 10.0 H Nucleated RBC % Seg Neutrophils # Lymphocytes # (Manual) 0.5 L Monocytes # (Manual) Eosinophils # (Manual) 0.9 H PT INR APTT POC ABG pH ABG pH POC ABG pCO2 POC ABG pO2 ABG pO2 ABG HCO3 ABG O2 Saturation ABG Base Excess ABG Hemoglobin Oxyhemoglobin Sodium Potassium Chloride Carbon Dioxide BUN 83 H Creatinine 4.4 H D Glucose 118 H POC Glucose Uric Acid Calcium Phosphorus Magnesium AST ALT Total Creatine Kinase CK-MB (CK-2) Troponin T NT-Pro-B Natriuret Pep Total Protein Albumin Triglycerides HDL Cholesterol Urine WBC (Auto) Urine Creatinine Urine Total Protein Vancomycin Trough 05/17/19 05/17/19 05/18/19 04:30 Unknown 01:50 WBC RBC 3.49 L Hgb 9.4 L Hct 30.0 L MCV MCH 27 L MCHC 31 L RDW 17.8 H Lymph % (Auto) 7.9 L [place] % (Auto) 15.4 H Eos % (Auto) 6.3 H Lymph # 0.7 L [place] # 1.4 H Eos # 0.6 H Seg Neutrophils % 70.2 H Seg Neuts % (Manual) Lymphocytes % (Manual) Monocytes % (Manual) Eosinophils % (Manual) Nucleated RBC % Seg Neutrophils # Lymphocytes # (Manual) Monocytes # (Manual) Eosinophils # (Manual) PT INR APTT POC ABG pH ABG pH 7.272 L POC ABG pCO2 POC ABG pO2 ABG pO2 75.7 L ABG HCO3 ABG O2 Saturation 93.8 L ABG Base Excess -3.0 L ABG Hemoglobin 7.8 L Oxyhemoglobin 91.6 L Sodium Potassium 5.2 H Chloride Carbon Dioxide BUN 96 H Creatinine 5.7 H Glucose 112 H POC Glucose Uric Acid Calcium Phosphorus Magnesium AST ALT Total Creatine Kinase CK-MB (CK-2) Troponin T NT-Pro-B Natriuret Pep Total Protein Albumin Triglycerides 173 H HDL Cholesterol Urine WBC (Auto) Urine Creatinine Urine Total Protein Vancomycin Trough 05/18/19 05/18/19 05/18/19 01:50 04:41 05:24 WBC RBC Hgb Hct MCV MCH MCHC RDW Lymph % (Auto) [place] % (Auto) Eos % (Auto) Lymph # [place] # Eos # Seg Neutrophils % Seg Neuts % (Manual) Lymphocytes % (Manual) Monocytes % (Manual) Eosinophils % (Manual) Nucleated RBC % Seg Neutrophils # Lymphocytes # (Manual) Monocytes # (Manual) Eosinophils # (Manual) PT INR APTT POC ABG pH 7.260 L ABG pH POC ABG pCO2 54.9 H POC ABG pO2 ABG pO2 ABG HCO3 ABG O2 Saturation ABG Base Excess ABG Hemoglobin Oxyhemoglobin Sodium Potassium 5.6 H Chloride Carbon Dioxide BUN 104 H Creatinine 6.6 H Glucose 107 H POC Glucose 106 H Uric Acid Calcium Phosphorus Magnesium AST ALT Total Creatine Kinase CK-MB (CK-2) Troponin T NT-Pro-B Natriuret Pep Total Protein Albumin Triglycerides HDL Cholesterol Urine WBC (Auto) Urine Creatinine Urine Total Protein Vancomycin Trough 05/18/19 05/18/19 05/19/19 11:34 23:26 04:06 WBC RBC 3.22 L Hgb 8.8 L Hct 27.3 L MCV MCH 27 L MCHC RDW 17.5 H Lymph % (Auto) [place] % (Auto) Eos % (Auto) Lymph # [place] # Eos # Seg Neutrophils % Seg Neuts % (Manual) 74.0 H Lymphocytes % (Manual) 4.0 L Monocytes % (Manual) 11.0 H Eosinophils % (Manual) 7.0 H Nucleated RBC % 1.0 H Seg Neutrophils # Lymphocytes # (Manual) 0.3 L Monocytes # (Manual) 0.9 H Eosinophils # (Manual) 0.6 H PT INR APTT POC ABG pH ABG pH POC ABG pCO2 POC ABG pO2 ABG pO2 ABG HCO3 ABG O2 Saturation ABG Base Excess ABG Hemoglobin Oxyhemoglobin Sodium Potassium Chloride Carbon Dioxide BUN Creatinine Glucose POC Glucose 152 H 112 H Uric Acid Calcium Phosphorus Magnesium AST ALT Total Creatine Kinase CK-MB (CK-2) Troponin T NT-Pro-B Natriuret Pep Total Protein Albumin Triglycerides HDL Cholesterol Urine WBC (Auto) Urine Creatinine Urine Total Protein Vancomycin Trough 05/19/19 05/19/19 05/20/19 04:06 06:00 04:00 WBC RBC 3.40 L Hgb 9.2 L Hct 28.6 L MCV MCH 27 L MCHC RDW 17.6 H Lymph % (Auto) [place] % (Auto) Eos % (Auto) Lymph # [place] # Eos # Seg Neutrophils % Seg Neuts % (Manual) Lymphocytes % (Manual) 11.0 L Monocytes % (Manual) Eosinophils % (Manual) 14.0 H Nucleated RBC % Seg Neutrophils # Lymphocytes # (Manual) 1.1 L Monocytes # (Manual) Eosinophils # (Manual) 1.4 H PT INR APTT POC ABG pH ABG pH 7.315 L POC ABG pCO2 POC ABG pO2 ABG pO2 ABG HCO3 ABG O2 Saturation ABG Base Excess ABG Hemoglobin 6.7 L Oxyhemoglobin 94.1 L Sodium Potassium 5.2 H Chloride Carbon Dioxide 21 L BUN 110 H Creatinine 7.2 H Glucose POC Glucose Uric Acid Calcium 8.3 L Phosphorus Magnesium AST ALT Total Creatine Kinase CK-MB (CK-2) Troponin T NT-Pro-B Natriuret Pep Total Protein Albumin Triglycerides HDL Cholesterol Urine WBC (Auto) Urine Creatinine Urine Total Protein Vancomycin Trough 05/20/19 05/20/19 05/20/19 04:00 05:48 12:00 WBC RBC Hgb Hct MCV MCH MCHC RDW Lymph % (Auto) [place] % (Auto) Eos % (Auto) Lymph # [place] # Eos # Seg Neutrophils % Seg Neuts % (Manual) Lymphocytes % (Manual) Monocytes % (Manual) Eosinophils % (Manual) Nucleated RBC % Seg Neutrophils # Lymphocytes # (Manual) Monocytes # (Manual) Eosinophils # (Manual) PT INR APTT POC ABG pH ABG pH 7.281 L POC ABG pCO2 POC ABG pO2 ABG pO2 78.7 L ABG HCO3 ABG O2 Saturation 94.5 L ABG Base Excess -3.0 L ABG Hemoglobin 9.9 L Oxyhemoglobin 92.5 L Sodium 136 L Potassium 5.7 H Chloride 96.3 L Carbon Dioxide BUN 125 H Creatinine 8.3 H Glucose 106 H POC Glucose Uric Acid Calcium Phosphorus Magnesium AST ALT Total Creatine Kinase CK-MB (CK-2) Troponin T NT-Pro-B Natriuret Pep Total Protein Albumin Triglycerides HDL Cholesterol Urine WBC (Auto) 26.0 H Urine Creatinine Urine Total Protein Vancomycin Trough 05/21/19 05/21/19 05/21/19 04:33 05:20 Unknown WBC RBC 3.38 L Hgb 9.1 L Hct 28.5 L MCV MCH 27 L MCHC RDW 17.4 H Lymph % (Auto) [place] % (Auto) Eos % (Auto) Lymph # [place] # Eos # Seg Neutrophils % Seg Neuts % (Manual) 71.0 H Lymphocytes % (Manual) 1.0 L Monocytes % (Manual) 11.0 H Eosinophils % (Manual) 6.0 H Nucleated RBC % Seg Neutrophils # Lymphocytes # (Manual) 0.1 L Monocytes # (Manual) 1.0 H Eosinophils # (Manual) 0.6 H PT INR APTT POC ABG pH 7.315 L ABG pH POC ABG pCO2 57.8 H POC ABG pO2 68 L ABG pO2 ABG HCO3 ABG O2 Saturation ABG Base Excess ABG Hemoglobin Oxyhemoglobin Sodium Potassium Chloride 96.3 L Carbon Dioxide BUN 102 H Creatinine 7.0 H Glucose 103 H POC Glucose Uric Acid Calcium Phosphorus Magnesium AST ALT Total Creatine Kinase CK-MB (CK-2) Troponin T NT-Pro-B Natriuret Pep Total Protein Albumin Triglycerides HDL Cholesterol Urine WBC (Auto) Urine Creatinine Urine Total Protein Vancomycin Trough 05/22/19 05/22/19 05/22/19 03:54 06:25 06:25 WBC RBC 3.22 L Hgb 8.6 L Hct 27.0 L MCV MCH 27 L MCHC RDW 17.5 H Lymph % (Auto) [place] % (Auto) 16.2 H Eos % (Auto) 10.8 H Lymph # [place] # 1.3 H Eos # 0.9 H Seg Neutrophils % Seg Neuts % (Manual) Lymphocytes % (Manual) 10.0 L Monocytes % (Manual) 13.0 H Eosinophils % (Manual) 8.0 H Nucleated RBC % Seg Neutrophils # Lymphocytes # (Manual) 0.9 L Monocytes # (Manual) 1.1 H Eosinophils # (Manual) 0.7 H PT INR APTT POC ABG pH 7.313 L ABG pH POC ABG pCO2 55.0 H POC ABG pO2 ABG pO2 ABG HCO3 ABG O2 Saturation ABG Base Excess ABG Hemoglobin Oxyhemoglobin Sodium 135 L Potassium Chloride 94.3 L Carbon Dioxide BUN 117 H Creatinine 7.8 H Glucose POC Glucose Uric Acid Calcium 8.2 L Phosphorus Magnesium AST ALT Total Creatine Kinase CK-MB (CK-2) Troponin T NT-Pro-B Natriuret Pep Total Protein Albumin Triglycerides HDL Cholesterol Urine WBC (Auto) Urine Creatinine Urine Total Protein Vancomycin Trough 05/23/19 05/24/19 05/24/19 05:21 05:00 05:00 WBC RBC 3.18 L Hgb 8.5 L Hct 26.7 L MCV MCH 27 L MCHC RDW 17.9 H Lymph % (Auto) [place] % (Auto) Eos % (Auto) Lymph # [place] # Eos # Seg Neutrophils % Seg Neuts % (Manual) Lymphocytes % (Manual) Monocytes % (Manual) Eosinophils % (Manual) Nucleated RBC % Seg Neutrophils # Lymphocytes # (Manual) Monocytes # (Manual) Eosinophils # (Manual) PT INR APTT POC ABG pH ABG pH POC ABG pCO2 49.7 H POC ABG pO2 73 L ABG pO2 ABG HCO3 ABG O2 Saturation ABG Base Excess ABG Hemoglobin Oxyhemoglobin Sodium Potassium Chloride 95.7 L Carbon Dioxide BUN 97 H Creatinine 6.5 H Glucose POC Glucose Uric Acid Calcium 8.0 L Phosphorus Magnesium AST ALT Total Creatine Kinase CK-MB (CK-2) Troponin T NT-Pro-B Natriuret Pep Total Protein Albumin Triglycerides HDL Cholesterol Urine WBC (Auto) Urine Creatinine Urine Total Protein Vancomycin Trough 05/24/19 06:17 WBC RBC Hgb Hct MCV MCH MCHC RDW Lymph % (Auto) [place] % (Auto) Eos % (Auto) Lymph # [place] # Eos # Seg Neutrophils % Seg Neuts % (Manual) Lymphocytes % (Manual) Monocytes % (Manual) Eosinophils % (Manual) Nucleated RBC % Seg Neutrophils # Lymphocytes # (Manual) Monocytes # (Manual) Eosinophils # (Manual) PT INR APTT POC ABG pH 7.330 L ABG pH POC ABG pCO2 52.5 H POC ABG pO2 ABG pO2 ABG HCO3 ABG O2 Saturation ABG Base Excess ABG Hemoglobin Oxyhemoglobin Sodium Potassium Chloride Carbon Dioxide BUN Creatinine Glucose POC Glucose Uric Acid Calcium Phosphorus Magnesium AST ALT Total Creatine Kinase CK-MB (CK-2) Troponin T NT-Pro-B Natriuret Pep Total Protein Albumin Triglycerides HDL Cholesterol Urine WBC (Auto) Urine Creatinine Urine Total Protein Vancomycin Trough
[2019-05-24] MEDS ORDERED: VANCOMYCIN PHARMACY TO DOSE IV SCH (09:00)
[2019-05-24] MEDS: ENOXAPARIN 30 MG/0.3 ML INJ SUB-Q SCH (09:09)
[2019-05-24] MEDS: ACETAMINOPHEN 325 MG TAB PO PRN (09:10)
[2019-05-24] MEDS: levETIRAcetam 500 MG/5 ML ORAL LIQD PO SCH ×2 (09:11→22:32)
[2019-05-24] MEDS: FAMOTIDINE 20 MG TAB PO SCH (09:12)
[2019-05-24] MEDS: CEFEPIME/NS 2 GM/100 ML 2 GM/100 ML BAG IV SCH (09:20)
--- NOTE | 2019-05-24 10:01 | Progress Note ---
Assessment and Plan 34 y/o male with acute hypoxic, hypercapnic respiratory failure currently ventilated and sedated, now with persistent fevers and seizure and on HD 1. ID: Patient unable to fit in scanner so CT of head sinus, chest will not happen. ID has placed back on renally adjusted Vanc. he has grown out jarad from urine and a tracheal aspirate 2. Pulm: Dropped FiO2 to 45. However, would not like to start weaning PEEP until FiO2 is at 40% or lower. 3. Renal: HD per renal 4. Day number of 21 of intubation. 5. Trying to avoid trach as much as possible. He is on his third week of intubation. However still requiring high levels of PEEP. At this point, once weaned to normal PEEP levels, hoping that we can extubate. CCT 31 minutes. Subjective Date of service: 05/24/19 Principal diagnosis: HF; acute hypoxemic resp failure, SIRS, CARLA Interval history: No acute events. on 50% sat was 92 so I decreased to 45. PEEP remains at 18. No family present and patient remains sedated. Objective Vital Signs - 12hr 05/23/19 05/23/19 05/23/19 22:00 22:06 22:15 Temperature Pulse Rate 106 H 103 H 104 H Pulse Rate [ 112 H From Monitor] Respiratory 13 19 Rate Blood Pressure 121/39 121/39 125/50 O2 Sat by Pulse 92 92 94 Oximetry 05/23/19 05/23/19 05/23/19 22:30 22:45 23:00 Temperature Pulse Rate 103 H 102 H 103 H Pulse Rate [ From Monitor] Respiratory 16 19 15 Rate Blood Pressure 117/45 123/48 120/51 O2 Sat by Pulse 93 94 93 Oximetry 05/23/19 05/23/19 05/23/19 23:15 23:30 23:45 Temperature Pulse Rate 103 H 101 H 100 H Pulse Rate [ From Monitor] Respiratory 18 17 14 Rate Blood Pressure 128/55 120/50 122/47 O2 Sat by Pulse 94 93 93 Oximetry 05/23/19 05/24/19 05/24/19 23:53 00:00 00:15 Temperature 99.4 F Pulse Rate 100 H 99 H Pulse Rate [ 94 H From Monitor] Respiratory 16 18 Rate Blood Pressure 116/43 125/47 O2 Sat by Pulse 93 94 Oximetry 05/24/19 05/24/19 05/24/19 00:30 00:37 00:45 Temperature Pulse Rate 97 H 95 H Pulse Rate [ From Monitor] Respiratory 19 17 Rate Blood Pressure 115/41 115/41 113/38 O2 Sat by Pulse 94 94 94 Oximetry 05/24/19 05/24/19 05/24/19 01:00 01:08 01:15 Temperature Pulse Rate 95 H 93 H Pulse Rate [ From Monitor] Respiratory 19 16 16 Rate Blood Pressure 111/36 113/37 O2 Sat by Pulse 95 94 Oximetry 05/24/19 05/24/19 05/24/19 01:30 01:45 02:00 Temperature Pulse Rate 96 H 102 H 100 H Pulse Rate [ 88 From Monitor] Respiratory 26 H 22 20 Rate Blood Pressure 114/38 130/54 117/40 O2 Sat by Pulse 94 95 95 Oximetry 05/24/19 05/24/19 05/24/19 02:15 02:30 02:45 Temperature Pulse Rate 95 H 97 H 93 H Pulse Rate [ From Monitor] Respiratory 19 26 H 12 Rate Blood Pressure 113/35 121/45 113/41 O2 Sat by Pulse 94 96 95 Oximetry 05/24/19 05/24/19 05/24/19 03:00 03:15 03:30 Temperature Pulse Rate 93 H 94 H 96 H Pulse Rate [ From Monitor] Respiratory 17 14 16 Rate Blood Pressure 112/38 111/35 112/35 O2 Sat by Pulse 95 95 96 Oximetry 05/24/19 05/24/19 05/24/19 03:45 03:53 04:00 Temperature 100.8 F H Pulse Rate 105 H 101 H Pulse Rate [ 101 H From Monitor] Respiratory 17 12 Rate Blood Pressure 121/43 115/38 O2 Sat by Pulse 95 93 Oximetry 05/24/19 05/24/19 05/24/19 04:15 04:30 04:45 Temperature Pulse Rate 97 H 97 H 98 H Pulse Rate [ From Monitor] Respiratory 0 L 13 26 H Rate Blood Pressure 115/34 124/41 107/29 O2 Sat by Pulse 93 94 94 Oximetry 05/24/19 05/24/19 05/24/19 05:00 05:15 05:30 Temperature Pulse Rate 93 H 96 H 94 H Pulse Rate [ From Monitor] Respiratory 27 H 26 H 26 H Rate Blood Pressure 106/29 107/35 111/36 O2 Sat by Pulse 95 95 95 Oximetry 05/24/19 05/24/19 05/24/19 05:45 06:00 06:05 Temperature Pulse Rate 96 H 101 H 106 H Pulse Rate [ From Monitor] Respiratory 25 H 22 Rate Blood Pressure 105/34 122/42 122/42 O2 Sat by Pulse 93 93 95 Oximetry 05/24/19 05/24/19 05/24/19 06:15 06:30 06:33 Temperature Pulse Rate 109 H 108 H 105 H Pulse Rate [ From Monitor] Respiratory 22 20 Rate Blood Pressure 118/61 111/52 111/52 O2 Sat by Pulse 94 90 Oximetry 05/24/19 05/24/19 08:00 08:08 Temperature 100.4 F H Pulse Rate 105 H Pulse Rate [ From Monitor] Respiratory Rate Blood Pressure 111/52 O2 Sat by Pulse 90 Oximetry Constitutional: other (morbidly obese male, sedated on vent, orally intubated) Eyes: non-icteric ENT: oropharynx moist Neck: other (extremely large in circumference) Effort: normal Ascultation: Bilateral: diminished breath sounds (secondary to body habitus) Cardiovascular: regular rate and rhythm (no mrg) Gastrointestinal: normoactive bowel sounds, non-tender, other (obese) Integumentary: other (L hand is wrapped) Extremities: no cyanosis, pink and warm, other (1+ generalized edema) Neurologic: unable to assess Psychiatric: other (unable to assess) CBC and BMP: 05/24/19 05:00 05/24/19 05:00 ABG, PT/INR, D-dimer: ABG POC ABG pH 7.330 (7.35-7.45) L 05/24/19 06:17 ABG pH 7.281 pH Units (7.350-7.450) L 05/20/19 05:48 POC ABG pCO2 52.5 (35-45) H 05/24/19 06:17 ABG pCO2 52.0 mm Hg 05/20/19 05:48 POC ABG pO2 96 (80-105) 05/24/19 06:17 ABG pO2 78.7 mm Hg (80.0-90.0) L 05/20/19 05:48 POC ABG HCO3 27.7 (22-26 mml/L) 05/24/19 06:17 POC ABG Total CO2 29 (23-27mmol/L) 05/24/19 06:17 POC ABG O2 Sat 97 05/24/19 06:17 ABG O2 Saturation 94.5 % (95.0-99.0) L 05/20/19 05:48 PT/INR, D-dimer PT 15.4 Sec. (12.2-14.9) H 05/01/19 Unknown INR 1.23 (0.87-1.13) H 05/01/19 Unknown Abnormal lab findings: Abnormal Labs 05/01/19 05/01/19 05/01/19 17:50 19:26 22:36 WBC RBC Hgb Hct MCV MCH MCHC RDW Lymph % (Auto) Ralls % (Auto) Eos % (Auto) Lymph # Ralls # Eos # Seg Neutrophils % Seg Neuts % (Manual) Lymphocytes % (Manual) Monocytes % (Manual) Eosinophils % (Manual) Nucleated RBC % Seg Neutrophils # Lymphocytes # (Manual) Monocytes # (Manual) Eosinophils # (Manual) PT INR APTT POC ABG pH 7.272 L 7.331 L ABG pH POC ABG pCO2 52.8 H POC ABG pO2 ABG pO2 ABG HCO3 ABG O2 Saturation ABG Base Excess ABG Hemoglobin Oxyhemoglobin Sodium 136 L Potassium 6.5 H* Chloride 97.2 L Carbon Dioxide BUN 60 H Creatinine Glucose 113 H POC Glucose Uric Acid Calcium Phosphorus Magnesium 2.40 H AST 139 H ALT 154 H Total Creatine Kinase CK-MB (CK-2) Troponin T NT-Pro-B Natriuret Pep Total Protein Albumin 3.8 L Triglycerides HDL Cholesterol Urine WBC (Auto) Urine Creatinine Urine Total Protein Vancomycin Trough 05/01/19 05/01/19 05/01/19 Unknown Unknown Unknown WBC 16.1 H RBC Hgb Hct MCV MCH MCHC RDW 17.2 H Lymph % (Auto) Ralls % (Auto) 9.6 H Eos % (Auto) Lymph # Ralls # 1.5 H Eos # Seg Neutrophils % 73.0 H Seg Neuts % (Manual) Lymphocytes % (Manual) Monocytes % (Manual) Eosinophils % (Manual) Nucleated RBC % Seg Neutrophils # 11.7 H Lymphocytes # (Manual) Monocytes # (Manual) Eosinophils # (Manual) PT 15.4 H INR 1.23 H APTT 22.7 L POC ABG pH ABG pH POC ABG pCO2 POC ABG pO2 ABG pO2 ABG HCO3 ABG O2 Saturation ABG Base Excess ABG Hemoglobin Oxyhemoglobin Sodium Potassium Chloride Carbon Dioxide BUN Creatinine Glucose POC Glucose Uric Acid Calcium Phosphorus Magnesium AST ALT Total Creatine Kinase CK-MB (CK-2) Troponin T NT-Pro-B Natriuret Pep 6831 H Total Protein Albumin Triglycerides HDL Cholesterol Urine WBC (Auto) Urine Creatinine Urine Total Protein Vancomycin Trough 05/01/19 05/02/19 05/02/19 Unknown 00:06 00:06 WBC RBC Hgb Hct MCV MCH MCHC RDW Lymph % (Auto) Ralls % (Auto) Eos % (Auto) Lymph # Ralls # Eos # Seg Neutrophils % Seg Neuts % (Manual) Lymphocytes % (Manual) Monocytes % (Manual) Eosinophils % (Manual) Nucleated RBC % Seg Neutrophils # Lymphocytes # (Manual) Monocytes # (Manual) Eosinophils # (Manual) PT INR APTT POC ABG pH ABG pH POC ABG pCO2 POC ABG pO2 ABG pO2 ABG HCO3 ABG O2 Saturation ABG Base Excess ABG Hemoglobin Oxyhemoglobin Sodium Potassium Chloride Carbon Dioxide BUN Creatinine Glucose POC Glucose Uric Acid Calcium Phosphorus 4.90 H Magnesium AST ALT Total Creatine Kinase 226 H CK-MB (CK-2) 5.7 H Troponin T 0.044 H NT-Pro-B Natriuret Pep Total Protein Albumin Triglycerides 182 H HDL Cholesterol 18 L Urine WBC (Auto) Urine Creatinine Urine Total Protein Vancomycin Trough 05/02/19 05/02/19 05/02/19 02:08 04:40 04:41 WBC 17.6 H RBC Hgb Hct MCV MCH 27 L MCHC RDW 17.4 H Lymph % (Auto) 10.2 L Ralls % (Auto) 11.0 H Eos % (Auto) Lymph # Ralls # 1.9 H Eos # Seg Neutrophils % 78.0 H Seg Neuts % (Manual) Lymphocytes % (Manual) Monocytes % (Manual) Eosinophils % (Manual) Nucleated RBC % Seg Neutrophils # 13.8 H Lymphocytes # (Manual) Monocytes # (Manual) Eosinophils # (Manual) PT INR APTT POC ABG pH ABG pH POC ABG pCO2 46.8 H POC ABG pO2 63 L ABG pO2 ABG HCO3 ABG O2 Saturation ABG Base Excess ABG Hemoglobin Oxyhemoglobin Sodium Potassium Chloride 96.3 L Carbon Dioxide BUN 63 H Creatinine 1.7 H Glucose POC Glucose Uric Acid Calcium Phosphorus Magnesium AST ALT Total Creatine Kinase CK-MB (CK-2) Troponin T NT-Pro-B Natriuret Pep Total Protein Albumin Triglycerides HDL Cholesterol Urine WBC (Auto) Urine Creatinine Urine Total Protein Vancomycin Trough 05/02/19 05/02/19 05/02/19 04:41 04:41 16:05 WBC RBC Hgb Hct MCV MCH MCHC RDW Lymph % (Auto) Ralls % (Auto) Eos % (Auto) Lymph # Ralls # Eos # Seg Neutrophils % Seg Neuts % (Manual) Lymphocytes % (Manual) Monocytes % (Manual) Eosinophils % (Manual) Nucleated RBC % Seg Neutrophils # Lymphocytes # (Manual) Monocytes # (Manual) Eosinophils # (Manual) PT INR APTT POC ABG pH ABG pH POC ABG pCO2 POC ABG pO2 ABG pO2 66.6 L ABG HCO3 31.9 H ABG O2 Saturation 92.5 L ABG Base Excess 5.8 H ABG Hemoglobin 13.3 L Oxyhemoglobin 90.6 L Sodium Potassium Chloride 97.2 L Carbon Dioxide BUN 61 H Creatinine 1.8 H Glucose POC Glucose Uric Acid Calcium Phosphorus Magnesium AST ALT Total Creatine Kinase CK-MB (CK-2) 5.2 H Troponin T 0.067 H D NT-Pro-B Natriuret Pep Total Protein Albumin Triglycerides HDL Cholesterol Urine WBC (Auto) Urine Creatinine Urine Total Protein Vancomycin Trough 05/02/19 05/03/19 05/03/19 20:39 04:35 05:05 WBC 11.8 H RBC Hgb Hct MCV MCH 27 L MCHC 31 L RDW 17.2 H Lymph % (Auto) Ralls % (Auto) Eos % (Auto) Lymph # Ralls # Eos # Seg Neutrophils % Seg Neuts % (Manual) Lymphocytes % (Manual) Monocytes % (Manual) Eosinophils % (Manual) Nucleated RBC % Seg Neutrophils # Lymphocytes # (Manual) Monocytes # (Manual) Eosinophils # (Manual) PT INR APTT POC ABG pH ABG pH POC ABG pCO2 53.6 H 54.0 H POC ABG pO2 55 L 63 L ABG pO2 ABG HCO3 ABG O2 Saturation ABG Base Excess ABG Hemoglobin Oxyhemoglobin Sodium Potassium Chloride Carbon Dioxide BUN Creatinine Glucose POC Glucose Uric Acid Calcium Phosphorus Magnesium AST ALT Total Creatine Kinase CK-MB (CK-2) Troponin T NT-Pro-B Natriuret Pep Total Protein Albumin Triglycerides HDL Cholesterol Urine WBC (Auto) Urine Creatinine Urine Total Protein Vancomycin Trough 12/02/1105/03/19 05/03/19 05:05 10:55 16:48 WBC RBC Hgb Hct MCV MCH MCHC RDW Lymph % (Auto) Ralls % (Auto) Eos % (Auto) Lymph # Ralls # Eos # Seg Neutrophils % Seg Neuts % (Manual) Lymphocytes % (Manual) Monocytes % (Manual) Eosinophils % (Manual) Nucleated RBC % Seg Neutrophils # Lymphocytes # (Manual) Monocytes # (Manual) Eosinophils # (Manual) PT INR APTT POC ABG pH 7.604 H ABG pH POC ABG pCO2 POC ABG pO2 58 L ABG pO2 ABG HCO3 ABG O2 Saturation ABG Base Excess ABG Hemoglobin Oxyhemoglobin Sodium Potassium Chloride Carbon Dioxide BUN 52 H Creatinine 1.9 H Glucose 103 H POC Glucose Uric Acid Calcium Phosphorus Magnesium AST ALT Total Creatine Kinase CK-MB (CK-2) Troponin T NT-Pro-B Natriuret Pep Total Protein Albumin Triglycerides HDL Cholesterol Urine WBC (Auto) 33.0 H Urine Creatinine Urine Total Protein Vancomycin Trough 05/04/19 05/04/19 05/04/19 04:49 06:50 06:50 WBC 16.0 H RBC Hgb Hct MCV MCH 27 L MCHC 31 L RDW 17.8 H Lymph % (Auto) Ralls % (Auto) Eos % (Auto) Lymph # Ralls # Eos # Seg Neutrophils % Seg Neuts % (Manual) Lymphocytes % (Manual) Monocytes % (Manual) Eosinophils % (Manual) Nucleated RBC % Seg Neutrophils # Lymphocytes # (Manual) Monocytes # (Manual) Eosinophils # (Manual) PT INR APTT POC ABG pH 7.273 L ABG pH POC ABG pCO2 POC ABG pO2 ABG pO2 ABG HCO3 ABG O2 Saturation ABG Base Excess ABG Hemoglobin Oxyhemoglobin Sodium 148 H Potassium 5.5 H Chloride Carbon Dioxide BUN 53 H Creatinine 3.3 H D Glucose 106 H POC Glucose Uric Acid Calcium 8.3 L Phosphorus Magnesium AST ALT Total Creatine Kinase CK-MB (CK-2) Troponin T NT-Pro-B Natriuret Pep Total Protein Albumin Triglycerides HDL Cholesterol Urine WBC (Auto) Urine Creatinine Urine Total Protein Vancomycin Trough 05/05/19 05/05/19 05/05/19 00:05 04:30 05:00 WBC RBC Hgb Hct MCV MCH MCHC RDW Lymph % (Auto) Ralls % (Auto) Eos % (Auto) Lymph # Ralls # Eos # Seg Neutrophils % Seg Neuts % (Manual) Lymphocytes % (Manual) Monocytes % (Manual) Eosinophils % (Manual) Nucleated RBC % Seg Neutrophils # Lymphocytes # (Manual) Monocytes # (Manual) Eosinophils # (Manual) PT INR APTT POC ABG pH 7.225 L ABG pH POC ABG pCO2 > 70 H POC ABG pO2 ABG pO2 ABG HCO3 ABG O2 Saturation ABG Base Excess ABG Hemoglobin Oxyhemoglobin Sodium 151 H Potassium 5.1 H Chloride Carbon Dioxide BUN 64 H Creatinine 3.5 H Glucose 117 H POC Glucose 141 H Uric Acid Calcium 7.5 L Phosphorus Magnesium AST 93 H ALT 65 H Total Creatine Kinase CK-MB (CK-2) Troponin T NT-Pro-B Natriuret Pep Total Protein Albumin 2.9 L Triglycerides HDL Cholesterol Urine WBC (Auto) Urine Creatinine Urine Total Protein Vancomycin Trough 05/05/19 05/05/19 05/05/19 05:00 12:02 17:46 WBC 12.0 H RBC Hgb 11.3 L Hct MCV MCH 27 L MCHC 30 L RDW 18.4 H Lymph % (Auto) 7.9 L Ralls % (Auto) 10.2 H Eos % (Auto) Lymph # 1.0 L Ralls # 1.2 H Eos # Seg Neutrophils % 80.8 H Seg Neuts % (Manual) Lymphocytes % (Manual) Monocytes % (Manual) Eosinophils % (Manual) Nucleated RBC % Seg Neutrophils # 9.7 H Lymphocytes # (Manual) Monocytes # (Manual) Eosinophils # (Manual) PT INR APTT POC ABG pH ABG pH POC ABG pCO2 POC ABG pO2 ABG pO2 ABG HCO3 ABG O2 Saturation ABG Base Excess ABG Hemoglobin Oxyhemoglobin Sodium Potassium Chloride Carbon Dioxide BUN Creatinine Glucose POC Glucose 125 H 112 H Uric Acid Calcium Phosphorus Magnesium AST ALT Total Creatine Kinase CK-MB (CK-2) Troponin T NT-Pro-B Natriuret Pep Total Protein Albumin Triglycerides HDL Cholesterol Urine WBC (Auto) Urine Creatinine Urine Total Protein Vancomycin Trough 05/05/19 05/06/19 05/06/19 23:42 03:58 04:45 WBC 11.4 H RBC Hgb 10.7 L Hct 34.2 L MCV MCH 27 L MCHC 31 L RDW 16.9 H Lymph % (Auto) Ralls % (Auto) Eos % (Auto) Lymph # Ralls # Eos # Seg Neutrophils % Seg Neuts % (Manual) Lymphocytes % (Manual) Monocytes % (Manual) Eosinophils % (Manual) Nucleated RBC % Seg Neutrophils # Lymphocytes # (Manual) Monocytes # (Manual) Eosinophils # (Manual) PT INR APTT POC ABG pH ABG pH POC ABG pCO2 62.4 H POC ABG pO2 111 H ABG pO2 ABG HCO3 ABG O2 Saturation ABG Base Excess ABG Hemoglobin Oxyhemoglobin Sodium Potassium Chloride Carbon Dioxide BUN Creatinine Glucose POC Glucose 128 H Uric Acid Calcium Phosphorus Magnesium AST ALT Total Creatine Kinase CK-MB (CK-2) Troponin T NT-Pro-B Natriuret Pep Total Protein Albumin Triglycerides HDL Cholesterol Urine WBC (Auto) Urine Creatinine Urine Total Protein Vancomycin Trough 05/06/19 05/06/19 05/06/19 04:45 05:33 12:30 WBC RBC Hgb Hct MCV MCH MCHC RDW Lymph % (Auto) Ralls % (Auto) Eos % (Auto) Lymph # Ralls # Eos # Seg Neutrophils % Seg Neuts % (Manual) Lymphocytes % (Manual) Monocytes % (Manual) Eosinophils % (Manual) Nucleated RBC % Seg Neutrophils # Lymphocytes # (Manual) Monocytes # (Manual) Eosinophils # (Manual) PT INR APTT POC ABG pH ABG pH POC ABG pCO2 POC ABG pO2 ABG pO2 ABG HCO3 ABG O2 Saturation ABG Base Excess ABG Hemoglobin Oxyhemoglobin Sodium 149 H Potassium Chloride Carbon Dioxide 31 H BUN 67 H Creatinine 3.2 H Glucose 125 H POC Glucose 117 H 116 H Uric Acid Calcium 7.5 L Phosphorus Magnesium AST ALT Total Creatine Kinase CK-MB (CK-2) Troponin T NT-Pro-B Natriuret Pep Total Protein Albumin Triglycerides HDL Cholesterol Urine WBC (Auto) Urine Creatinine Urine Total Protein Vancomycin Trough 05/06/19 05/06/19 05/07/19 18:34 23:16 05:22 WBC RBC Hgb Hct MCV MCH MCHC RDW Lymph % (Auto) Ralls % (Auto) Eos % (Auto) Lymph # Ralls # Eos # Seg Neutrophils % Seg Neuts % (Manual) Lymphocytes % (Manual) Monocytes % (Manual) Eosinophils % (Manual) Nucleated RBC % Seg Neutrophils # Lymphocytes # (Manual) Monocytes # (Manual) Eosinophils # (Manual) PT INR APTT POC ABG pH ABG pH POC ABG pCO2 POC ABG pO2 ABG pO2 ABG HCO3 ABG O2 Saturation ABG Base Excess ABG Hemoglobin Oxyhemoglobin Sodium Potassium Chloride Carbon Dioxide BUN Creatinine Glucose POC Glucose 128 H 143 H 166 H Uric Acid Calcium Phosphorus Magnesium AST ALT Total Creatine Kinase CK-MB (CK-2) Troponin T NT-Pro-B Natriuret Pep Total Protein Albumin Triglycerides HDL Cholesterol Urine WBC (Auto) Urine Creatinine Urine Total Protein Vancomycin Trough 05/07/19 05/07/19 05/07/19 06:33 07:03 09:35 WBC RBC Hgb Hct MCV MCH MCHC RDW Lymph % (Auto) Ralls % (Auto) Eos % (Auto) Lymph # Ralls # Eos # Seg Neutrophils % Seg Neuts % (Manual) Lymphocytes % (Manual) Monocytes % (Manual) Eosinophils % (Manual) Nucleated RBC % Seg Neutrophils # Lymphocytes # (Manual) Monocytes # (Manual) Eosinophils # (Manual) PT INR APTT POC ABG pH 7.263 L 7.288 L ABG pH POC ABG pCO2 POC ABG pO2 51 L 56 L ABG pO2 ABG HCO3 ABG O2 Saturation ABG Base Excess ABG Hemoglobin Oxyhemoglobin Sodium Potassium Chloride Carbon Dioxide BUN 76 H Creatinine 3.2 H Glucose 147 H POC Glucose Uric Acid Calcium 7.9 L Phosphorus Magnesium AST ALT Total Creatine Kinase CK-MB (CK-2) Troponin T NT-Pro-B Natriuret Pep Total Protein Albumin Triglycerides HDL Cholesterol Urine WBC (Auto) Urine Creatinine Urine Total Protein Vancomycin Trough 05/07/19 05/07/19 05/07/19 09:35 12:17 13:45 WBC 13.4 H RBC Hgb 11.6 L Hct MCV MCH 27 L MCHC 31 L RDW 17.5 H Lymph % (Auto) Ralls % (Auto) Eos % (Auto) Lymph # Ralls # Eos # Seg Neutrophils % Seg Neuts % (Manual) Lymphocytes % (Manual) Monocytes % (Manual) Eosinophils % (Manual) Nucleated RBC % Seg Neutrophils # Lymphocytes # (Manual) Monocytes # (Manual) Eosinophils # (Manual) PT INR APTT POC ABG pH ABG pH POC ABG pCO2 POC ABG pO2 ABG pO2 ABG HCO3 ABG O2 Saturation ABG Base Excess ABG Hemoglobin Oxyhemoglobin Sodium Potassium Chloride Carbon Dioxide BUN Creatinine Glucose POC Glucose 130 H Uric Acid 18.0 H Calcium Phosphorus Magnesium AST ALT Total Creatine Kinase CK-MB (CK-2) Troponin T NT-Pro-B Natriuret Pep Total Protein Albumin Triglycerides HDL Cholesterol Urine WBC (Auto) Urine Creatinine Urine Total Protein Vancomycin Trough 05/07/19 05/07/19 05/08/19 17:39 22:40 05:06 WBC RBC Hgb Hct MCV MCH MCHC RDW Lymph % (Auto) Ralls % (Auto) Eos % (Auto) Lymph # Ralls # Eos # Seg Neutrophils % Seg Neuts % (Manual) Lymphocytes % (Manual) Monocytes % (Manual) Eosinophils % (Manual) Nucleated RBC % Seg Neutrophils # Lymphocytes # (Manual) Monocytes # (Manual) Eosinophils # (Manual) PT INR APTT POC ABG pH ABG pH POC ABG pCO2 POC ABG pO2 ABG pO2 ABG HCO3 ABG O2 Saturation ABG Base Excess ABG Hemoglobin Oxyhemoglobin Sodium Potassium Chloride Carbon Dioxide BUN Creatinine Glucose POC Glucose 116 H 148 H Uric Acid Calcium Phosphorus Magnesium AST ALT Total Creatine Kinase CK-MB (CK-2) Troponin T NT-Pro-B Natriuret Pep Total Protein Albumin Triglycerides HDL Cholesterol Urine WBC (Auto) Urine Creatinine 292.8 H Urine Total Protein 269 H Vancomycin Trough 05/08/19 05/08/19 05/08/19 05:32 11:28 13:48 WBC RBC Hgb Hct MCV MCH MCHC RDW Lymph % (Auto) Ralls % (Auto) Eos % (Auto) Lymph # Ralls # Eos # Seg Neutrophils % Seg Neuts % (Manual) Lymphocytes % (Manual) Monocytes % (Manual) Eosinophils % (Manual) Nucleated RBC % Seg Neutrophils # Lymphocytes # (Manual) Monocytes # (Manual) Eosinophils # (Manual) PT INR APTT POC ABG pH ABG pH POC ABG pCO2 45.4 H POC ABG pO2 64 L ABG pO2 ABG HCO3 ABG O2 Saturation ABG Base Excess ABG Hemoglobin Oxyhemoglobin Sodium Potassium Chloride Carbon Dioxide BUN 73 H Creatinine 2.7 H Glucose 127 H POC Glucose 107 H Uric Acid Calcium 7.6 L Phosphorus Magnesium AST ALT Total Creatine Kinase CK-MB (CK-2) Troponin T NT-Pro-B Natriuret Pep Total Protein Albumin Triglycerides HDL Cholesterol Urine WBC (Auto) Urine Creatinine Urine Total Protein Vancomycin Trough 05/08/19 05/09/19 05/09/19 17:48 04:50 04:53 WBC RBC 3.07 L Hgb 8.5 L D Hct 29.3 L D MCV 96 H MCH MCHC 29 L RDW 18.1 H Lymph % (Auto) Ralls % (Auto) Eos % (Auto) Lymph # Ralls # Eos # Seg Neutrophils % Seg Neuts % (Manual) Lymphocytes % (Manual) Monocytes % (Manual) Eosinophils % (Manual) Nucleated RBC % Seg Neutrophils # Lymphocytes # (Manual) Monocytes # (Manual) Eosinophils # (Manual) PT INR APTT POC ABG pH 7.316 L ABG pH POC ABG pCO2 66.0 H POC ABG pO2 69 L ABG pO2 ABG HCO3 ABG O2 Saturation ABG Base Excess ABG Hemoglobin Oxyhemoglobin Sodium Potassium Chloride Carbon Dioxide BUN Creatinine Glucose POC Glucose 155 H Uric Acid Calcium Phosphorus Magnesium AST ALT Total Creatine Kinase CK-MB (CK-2) Troponin T NT-Pro-B Natriuret Pep Total Protein Albumin Triglycerides HDL Cholesterol Urine WBC (Auto) Urine Creatinine Urine Total Protein Vancomycin Trough 05/09/19 05/09/19 05/09/19 05:46 07:24 12:10 WBC RBC Hgb Hct MCV MCH MCHC RDW Lymph % (Auto) Ralls % (Auto) Eos % (Auto) Lymph # Ralls # Eos # Seg Neutrophils % Seg Neuts % (Manual) Lymphocytes % (Manual) Monocytes % (Manual) Eosinophils % (Manual) Nucleated RBC % Seg Neutrophils # Lymphocytes # (Manual) Monocytes # (Manual) Eosinophils # (Manual) PT INR APTT POC ABG pH ABG pH POC ABG pCO2 POC ABG pO2 ABG pO2 ABG HCO3 ABG O2 Saturation ABG Base Excess ABG Hemoglobin Oxyhemoglobin Sodium Potassium Chloride Carbon Dioxide BUN 73 H Creatinine 2.4 H Glucose 153 H POC Glucose 123 H 148 H Uric Acid Calcium 8.2 L Phosphorus Magnesium AST 45 H ALT Total Creatine Kinase CK-MB (CK-2) Troponin T NT-Pro-B Natriuret Pep Total Protein 6.0 L Albumin 1.9 L Triglycerides HDL Cholesterol Urine WBC (Auto) Urine Creatinine Urine Total Protein Vancomycin Trough 05/09/19 05/09/19 05/10/19 18:23 23:26 04:52 WBC RBC Hgb Hct MCV MCH MCHC RDW Lymph % (Auto) Ralls % (Auto) Eos % (Auto) Lymph # Ralls # Eos # Seg Neutrophils % Seg Neuts % (Manual) Lymphocytes % (Manual) Monocytes % (Manual) Eosinophils % (Manual) Nucleated RBC % Seg Neutrophils # Lymphocytes # (Manual) Monocytes # (Manual) Eosinophils # (Manual) PT INR APTT POC ABG pH 7.305 L ABG pH POC ABG pCO2 62.6 H POC ABG pO2 ABG pO2 ABG HCO3 ABG O2 Saturation ABG Base Excess ABG Hemoglobin Oxyhemoglobin Sodium Potassium Chloride Carbon Dioxide BUN Creatinine Glucose POC Glucose 147 H 121 H Uric Acid Calcium Phosphorus Magnesium AST ALT Total Creatine Kinase CK-MB (CK-2) Troponin T NT-Pro-B Natriuret Pep Total Protein Albumin Triglycerides HDL Cholesterol Urine WBC (Auto) Urine Creatinine Urine Total Protein Vancomycin Trough 05/10/19 05/10/19 05/10/19 05:00 05:00 05:50 WBC RBC Hgb 10.3 L Hct 33.7 L MCV MCH 27 L MCHC 31 L RDW 17.0 H Lymph % (Auto) Ralls % (Auto) Eos % (Auto) Lymph # Ralls # Eos # Seg Neutrophils % Seg Neuts % (Manual) Lymphocytes % (Manual) Monocytes % (Manual) Eosinophils % (Manual) Nucleated RBC % Seg Neutrophils # Lymphocytes # (Manual) Monocytes # (Manual) Eosinophils # (Manual) PT INR APTT POC ABG pH ABG pH POC ABG pCO2 POC ABG pO2 ABG pO2 ABG HCO3 ABG O2 Saturation ABG Base Excess ABG Hemoglobin Oxyhemoglobin Sodium 147 H Potassium Chloride Carbon Dioxide BUN 70 H Creatinine 2.6 H Glucose 155 H POC Glucose 158 H Uric Acid Calcium 8.2 L Phosphorus Magnesium AST ALT Total Creatine Kinase CK-MB (CK-2) Troponin T NT-Pro-B Natriuret Pep Total Protein 6.1 L Albumin 2.5 L Triglycerides HDL Cholesterol Urine WBC (Auto) Urine Creatinine Urine Total Protein Vancomycin Trough 05/10/19 05/11/19 05/11/19 13:14 07:26 11:40 WBC RBC Hgb Hct MCV MCH MCHC RDW Lymph % (Auto) Ralls % (Auto) Eos % (Auto) Lymph # Ralls # Eos # Seg Neutrophils % Seg Neuts % (Manual) Lymphocytes % (Manual) Monocytes % (Manual) Eosinophils % (Manual) Nucleated RBC % Seg Neutrophils # Lymphocytes # (Manual) Monocytes # (Manual) Eosinophils # (Manual) PT INR APTT POC ABG pH ABG pH POC ABG pCO2 48.0 H POC ABG pO2 58 L ABG pO2 ABG HCO3 ABG O2 Saturation ABG Base Excess ABG Hemoglobin Oxyhemoglobin Sodium 147 H Potassium Chloride 107.2 H Carbon Dioxide BUN 67 H Creatinine 2.6 H Glucose 121 H POC Glucose 159 H Uric Acid Calcium Phosphorus Magnesium AST ALT Total Creatine Kinase CK-MB (CK-2) Troponin T NT-Pro-B Natriuret Pep Total Protein Albumin Triglycerides HDL Cholesterol Urine WBC (Auto) Urine Creatinine Urine Total Protein Vancomycin Trough 05/11/19 05/11/19 05/12/19 18:13 23:46 04:40 WBC RBC Hgb Hct MCV MCH MCHC RDW Lymph % (Auto) Ralls % (Auto) Eos % (Auto) Lymph # Ralls # Eos # Seg Neutrophils % Seg Neuts % (Manual) Lymphocytes % (Manual) Monocytes % (Manual) Eosinophils % (Manual) Nucleated RBC % Seg Neutrophils # Lymphocytes # (Manual) Monocytes # (Manual) Eosinophils # (Manual) PT INR APTT POC ABG pH ABG pH 7.264 L POC ABG pCO2 POC ABG pO2 ABG pO2 66.8 L ABG HCO3 31.0 H ABG O2 Saturation 92.0 L ABG Base Excess ABG Hemoglobin 10.3 L Oxyhemoglobin 90.1 L Sodium Potassium Chloride Carbon Dioxide BUN Creatinine Glucose POC Glucose 120 H 121 H Uric Acid Calcium Phosphorus Magnesium AST ALT Total Creatine Kinase CK-MB (CK-2) Troponin T NT-Pro-B Natriuret Pep Total Protein Albumin Triglycerides HDL Cholesterol Urine WBC (Auto) Urine Creatinine Urine Total Protein Vancomycin Trough 05/12/19 05/12/19 05/12/19 04:45 04:45 11:14 WBC RBC Hgb 10.2 L Hct 32.4 L MCV MCH MCHC 31 L RDW 17.2 H Lymph % (Auto) Ralls % (Auto) Eos % (Auto) Lymph # Ralls # Eos # Seg Neutrophils % Seg Neuts % (Manual) Lymphocytes % (Manual) Monocytes % (Manual) Eosinophils % (Manual) Nucleated RBC % Seg Neutrophils # Lymphocytes # (Manual) Monocytes # (Manual) Eosinophils # (Manual) PT INR APTT POC ABG pH 7.284 L ABG pH POC ABG pCO2 67.8 H POC ABG pO2 ABG pO2 ABG HCO3 ABG O2 Saturation ABG Base Excess ABG Hemoglobin Oxyhemoglobin Sodium Potassium Chloride Carbon Dioxide BUN 63 H Creatinine 2.4 H Glucose 110 H POC Glucose Uric Acid Calcium Phosphorus Magnesium AST ALT Total Creatine Kinase CK-MB (CK-2) Troponin T NT-Pro-B Natriuret Pep Total Protein Albumin Triglycerides HDL Cholesterol Urine WBC (Auto) Urine Creatinine Urine Total Protein Vancomycin Trough 05/12/19 05/12/19 05/13/19 11:44 23:11 04:30 WBC RBC Hgb Hct MCV MCH MCHC RDW Lymph % (Auto) Ralls % (Auto) Eos % (Auto) Lymph # Ralls # Eos # Seg Neutrophils % Seg Neuts % (Manual) Lymphocytes % (Manual) Monocytes % (Manual) Eosinophils % (Manual) Nucleated RBC % Seg Neutrophils # Lymphocytes # (Manual) Monocytes # (Manual) Eosinophils # (Manual) PT INR APTT POC ABG pH ABG pH 7.288 L POC ABG pCO2 POC ABG pO2 ABG pO2 109.7 H ABG HCO3 30.9 H ABG O2 Saturation ABG Base Excess 3.2 H ABG Hemoglobin 9.6 L Oxyhemoglobin Sodium Potassium Chloride Carbon Dioxide BUN Creatinine Glucose POC Glucose 126 H 147 H Uric Acid Calcium Phosphorus Magnesium AST ALT Total Creatine Kinase CK-MB (CK-2) Troponin T NT-Pro-B Natriuret Pep Total Protein Albumin Triglycerides HDL Cholesterol Urine WBC (Auto) Urine Creatinine Urine Total Protein Vancomycin Trough 05/13/19 05/13/19 05/14/19 06:27 11:58 04:00 WBC RBC 3.16 L Hgb 9.3 L Hct 27.9 L MCV MCH MCHC RDW 17.1 H Lymph % (Auto) Ralls % (Auto) Eos % (Auto) Lymph # Ralls # Eos # Seg Neutrophils % Seg Neuts % (Manual) Lymphocytes % (Manual) Monocytes % (Manual) Eosinophils % (Manual) Nucleated RBC % Seg Neutrophils # Lymphocytes # (Manual) Monocytes # (Manual) Eosinophils # (Manual) PT INR APTT POC ABG pH ABG pH POC ABG pCO2 POC ABG pO2 ABG pO2 ABG HCO3 ABG O2 Saturation ABG Base Excess ABG Hemoglobin Oxyhemoglobin Sodium Potassium Chloride Carbon Dioxide BUN Creatinine Glucose POC Glucose 113 H 130 H Uric Acid Calcium Phosphorus Magnesium AST ALT Total Creatine Kinase CK-MB (CK-2) Troponin T NT-Pro-B Natriuret Pep Total Protein Albumin Triglycerides HDL Cholesterol Urine WBC (Auto) Urine Creatinine Urine Total Protein Vancomycin Trough 05/14/19 05/14/19 05/14/19 04:00 04:34 05:32 WBC RBC Hgb Hct MCV MCH MCHC RDW Lymph % (Auto) Ralls % (Auto) Eos % (Auto) Lymph # Ralls # Eos # Seg Neutrophils % Seg Neuts % (Manual) Lymphocytes % (Manual) Monocytes % (Manual) Eosinophils % (Manual) Nucleated RBC % Seg Neutrophils # Lymphocytes # (Manual) Monocytes # (Manual) Eosinophils # (Manual) PT INR APTT POC ABG pH 7.328 L ABG pH POC ABG pCO2 61.7 H POC ABG pO2 ABG pO2 ABG HCO3 ABG O2 Saturation ABG Base Excess ABG Hemoglobin Oxyhemoglobin Sodium 135 L D Potassium Chloride Carbon Dioxide BUN 57 H Creatinine 2.2 H Glucose 115 H POC Glucose 115 H Uric Acid Calcium 8.1 L Phosphorus Magnesium AST ALT Total Creatine Kinase CK-MB (CK-2) Troponin T NT-Pro-B Natriuret Pep Total Protein Albumin Triglycerides HDL Cholesterol Urine WBC (Auto) Urine Creatinine Urine Total Protein Vancomycin Trough 05/14/19 05/15/19 05/15/19 12:11 05:10 05:24 WBC RBC Hgb Hct MCV MCH MCHC RDW Lymph % (Auto) Ralls % (Auto) Eos % (Auto) Lymph # Ralls # Eos # Seg Neutrophils % Seg Neuts % (Manual) Lymphocytes % (Manual) Monocytes % (Manual) Eosinophils % (Manual) Nucleated RBC % Seg Neutrophils # Lymphocytes # (Manual) Monocytes # (Manual) Eosinophils # (Manual) PT INR APTT POC ABG pH ABG pH 7.342 L POC ABG pCO2 POC ABG pO2 ABG pO2 79.1 L ABG HCO3 28.2 H ABG O2 Saturation ABG Base Excess ABG Hemoglobin 7.0 L Oxyhemoglobin 94.4 L Sodium Potassium Chloride Carbon Dioxide BUN Creatinine Glucose POC Glucose 110 H 116 H Uric Acid Calcium Phosphorus Magnesium AST ALT Total Creatine Kinase CK-MB (CK-2) Troponin T NT-Pro-B Natriuret Pep Total Protein Albumin Triglycerides HDL Cholesterol Urine WBC (Auto) Urine Creatinine Urine Total Protein Vancomycin Trough 05/15/19 05/15/19 05/16/19 09:00 18:12 04:50 WBC RBC Hgb Hct MCV MCH MCHC RDW Lymph % (Auto) Ralls % (Auto) Eos % (Auto) Lymph # Ralls # Eos # Seg Neutrophils % Seg Neuts % (Manual) Lymphocytes % (Manual) Monocytes % (Manual) Eosinophils % (Manual) Nucleated RBC % Seg Neutrophils # Lymphocytes # (Manual) Monocytes # (Manual) Eosinophils # (Manual) PT INR APTT POC ABG pH ABG pH 7.250 L POC ABG pCO2 POC ABG pO2 ABG pO2 76.4 L ABG HCO3 ABG O2 Saturation 94.6 L ABG Base Excess -3.1 L ABG Hemoglobin 9.7 L Oxyhemoglobin 92.4 L Sodium Potassium Chloride Carbon Dioxide BUN Creatinine Glucose POC Glucose 110 H Uric Acid Calcium Phosphorus Magnesium AST ALT Total Creatine Kinase CK-MB (CK-2) Troponin T NT-Pro-B Natriuret Pep Total Protein Albumin Triglycerides HDL Cholesterol Urine WBC (Auto) Urine Creatinine Urine Total Protein Vancomycin Trough 20.5 H 05/16/19 05/16/19 05/17/19 05:50 05:50 04:20 WBC RBC 3.36 L 3.44 L Hgb 9.4 L 9.3 L Hct 29.1 L 29.7 L MCV MCH 27 L MCHC 31 L RDW 17.6 H 17.6 H Lymph % (Auto) Ralls % (Auto) Eos % (Auto) Lymph # Ralls # Eos # Seg Neutrophils % Seg Neuts % (Manual) 77.0 H Lymphocytes % (Manual) 5.0 L Monocytes % (Manual) Eosinophils % (Manual) 10.0 H Nucleated RBC % Seg Neutrophils # Lymphocytes # (Manual) 0.5 L Monocytes # (Manual) Eosinophils # (Manual) 0.9 H PT INR APTT POC ABG pH ABG pH POC ABG pCO2 POC ABG pO2 ABG pO2 ABG HCO3 ABG O2 Saturation ABG Base Excess ABG Hemoglobin Oxyhemoglobin Sodium Potassium Chloride Carbon Dioxide BUN 83 H Creatinine 4.4 H D Glucose 118 H POC Glucose Uric Acid Calcium Phosphorus Magnesium AST ALT Total Creatine Kinase CK-MB (CK-2) Troponin T NT-Pro-B Natriuret Pep Total Protein Albumin Triglycerides HDL Cholesterol Urine WBC (Auto) Urine Creatinine Urine Total Protein Vancomycin Trough 05/17/19 05/17/19 05/18/19 04:30 Unknown 01:50 WBC RBC 3.49 L Hgb 9.4 L Hct 30.0 L MCV MCH 27 L MCHC 31 L RDW 17.8 H Lymph % (Auto) 7.9 L Ralls % (Auto) 15.4 H Eos % (Auto) 6.3 H Lymph # 0.7 L Ralls # 1.4 H Eos # 0.6 H Seg Neutrophils % 70.2 H Seg Neuts % (Manual) Lymphocytes % (Manual) Monocytes % (Manual) Eosinophils % (Manual) Nucleated RBC % Seg Neutrophils # Lymphocytes # (Manual) Monocytes # (Manual) Eosinophils # (Manual) PT INR APTT POC ABG pH ABG pH 7.272 L POC ABG pCO2 POC ABG pO2 ABG pO2 75.7 L ABG HCO3 ABG O2 Saturation 93.8 L ABG Base Excess -3.0 L ABG Hemoglobin 7.8 L Oxyhemoglobin 91.6 L Sodium Potassium 5.2 H Chloride Carbon Dioxide BUN 96 H Creatinine 5.7 H Glucose 112 H POC Glucose Uric Acid Calcium Phosphorus Magnesium AST ALT Total Creatine Kinase CK-MB (CK-2) Troponin T NT-Pro-B Natriuret Pep Total Protein Albumin Triglycerides 173 H HDL Cholesterol Urine WBC (Auto) Urine Creatinine Urine Total Protein Vancomycin Trough 05/18/19 05/18/19 05/18/19 01:50 04:41 05:24 WBC RBC Hgb Hct MCV MCH MCHC RDW Lymph % (Auto) Ralls % (Auto) Eos % (Auto) Lymph # Ralls # Eos # Seg Neutrophils % Seg Neuts % (Manual) Lymphocytes % (Manual) Monocytes % (Manual) Eosinophils % (Manual) Nucleated RBC % Seg Neutrophils # Lymphocytes # (Manual) Monocytes # (Manual) Eosinophils # (Manual) PT INR APTT POC ABG pH 7.260 L ABG pH POC ABG pCO2 54.9 H POC ABG pO2 ABG pO2 ABG HCO3 ABG O2 Saturation ABG Base Excess ABG Hemoglobin Oxyhemoglobin Sodium Potassium 5.6 H Chloride Carbon Dioxide BUN 104 H Creatinine 6.6 H Glucose 107 H POC Glucose 106 H Uric Acid Calcium Phosphorus Magnesium AST ALT Total Creatine Kinase CK-MB (CK-2) Troponin T NT-Pro-B Natriuret Pep Total Protein Albumin Triglycerides HDL Cholesterol Urine WBC (Auto) Urine Creatinine Urine Total Protein Vancomycin Trough 05/18/19 05/18/19 05/19/19 11:34 23:26 04:06 WBC RBC 3.22 L Hgb 8.8 L Hct 27.3 L MCV MCH 27 L MCHC RDW 17.5 H Lymph % (Auto) Ralls % (Auto) Eos % (Auto) Lymph # Ralls # Eos # Seg Neutrophils % Seg Neuts % (Manual) 74.0 H Lymphocytes % (Manual) 4.0 L Monocytes % (Manual) 11.0 H Eosinophils % (Manual) 7.0 H Nucleated RBC % 1.0 H Seg Neutrophils # Lymphocytes # (Manual) 0.3 L Monocytes # (Manual) 0.9 H Eosinophils # (Manual) 0.6 H PT INR APTT POC ABG pH ABG pH POC ABG pCO2 POC ABG pO2 ABG pO2 ABG HCO3 ABG O2 Saturation ABG Base Excess ABG Hemoglobin Oxyhemoglobin Sodium Potassium Chloride Carbon Dioxide BUN Creatinine Glucose POC Glucose 152 H 112 H Uric Acid Calcium Phosphorus Magnesium AST ALT Total Creatine Kinase CK-MB (CK-2) Troponin T NT-Pro-B Natriuret Pep Total Protein Albumin Triglycerides HDL Cholesterol Urine WBC (Auto) Urine Creatinine Urine Total Protein Vancomycin Trough 05/19/19 05/19/19 05/20/19 04:06 06:00 04:00 WBC RBC 3.40 L Hgb 9.2 L Hct 28.6 L MCV MCH 27 L MCHC RDW 17.6 H Lymph % (Auto) Ralls % (Auto) Eos % (Auto) Lymph # Ralls # Eos # Seg Neutrophils % Seg Neuts % (Manual) Lymphocytes % (Manual) 11.0 L Monocytes % (Manual) Eosinophils % (Manual) 14.0 H Nucleated RBC % Seg Neutrophils # Lymphocytes # (Manual) 1.1 L Monocytes # (Manual) Eosinophils # (Manual) 1.4 H PT INR APTT POC ABG pH ABG pH 7.315 L POC ABG pCO2 POC ABG pO2 ABG pO2 ABG HCO3 ABG O2 Saturation ABG Base Excess ABG Hemoglobin 6.7 L Oxyhemoglobin 94.1 L Sodium Potassium 5.2 H Chloride Carbon Dioxide 21 L BUN 110 H Creatinine 7.2 H Glucose POC Glucose Uric Acid Calcium 8.3 L Phosphorus Magnesium AST ALT Total Creatine Kinase CK-MB (CK-2) Troponin T NT-Pro-B Natriuret Pep Total Protein Albumin Triglycerides HDL Cholesterol Urine WBC (Auto) Urine Creatinine Urine Total Protein Vancomycin Trough 05/20/19 05/20/19 05/20/19 04:00 05:48 12:00 WBC RBC Hgb Hct MCV MCH MCHC RDW Lymph % (Auto) Ralls % (Auto) Eos % (Auto) Lymph # Ralls # Eos # Seg Neutrophils % Seg Neuts % (Manual) Lymphocytes % (Manual) Monocytes % (Manual) Eosinophils % (Manual) Nucleated RBC % Seg Neutrophils # Lymphocytes # (Manual) Monocytes # (Manual) Eosinophils # (Manual) PT INR APTT POC ABG pH ABG pH 7.281 L POC ABG pCO2 POC ABG pO2 ABG pO2 78.7 L ABG HCO3 ABG O2 Saturation 94.5 L ABG Base Excess -3.0 L ABG Hemoglobin 9.9 L Oxyhemoglobin 92.5 L Sodium 136 L Potassium 5.7 H Chloride 96.3 L Carbon Dioxide BUN 125 H Creatinine 8.3 H Glucose 106 H POC Glucose Uric Acid Calcium Phosphorus Magnesium AST ALT Total Creatine Kinase CK-MB (CK-2) Troponin T NT-Pro-B Natriuret Pep Total Protein Albumin Triglycerides HDL Cholesterol Urine WBC (Auto) 26.0 H Urine Creatinine Urine Total Protein Vancomycin Trough 05/21/19 05/21/19 05/21/19 04:33 05:20 Unknown WBC RBC 3.38 L Hgb 9.1 L Hct 28.5 L MCV MCH 27 L MCHC RDW 17.4 H Lymph % (Auto) Ralls % (Auto) Eos % (Auto) Lymph # Ralls # Eos # Seg Neutrophils % Seg Neuts % (Manual) 71.0 H Lymphocytes % (Manual) 1.0 L Monocytes % (Manual) 11.0 H Eosinophils % (Manual) 6.0 H Nucleated RBC % Seg Neutrophils # Lymphocytes # (Manual) 0.1 L Monocytes # (Manual) 1.0 H Eosinophils # (Manual) 0.6 H PT INR APTT POC ABG pH 7.315 L ABG pH POC ABG pCO2 57.8 H POC ABG pO2 68 L ABG pO2 ABG HCO3 ABG O2 Saturation ABG Base Excess ABG Hemoglobin Oxyhemoglobin Sodium Potassium Chloride 96.3 L Carbon Dioxide BUN 102 H Creatinine 7.0 H Glucose 103 H POC Glucose Uric Acid Calcium Phosphorus Magnesium AST ALT Total Creatine Kinase CK-MB (CK-2) Troponin T NT-Pro-B Natriuret Pep Total Protein Albumin Triglycerides HDL Cholesterol Urine WBC (Auto) Urine Creatinine Urine Total Protein Vancomycin Trough 05/22/19 05/22/19 05/22/19 03:54 06:25 06:25 WBC RBC 3.22 L Hgb 8.6 L Hct 27.0 L MCV MCH 27 L MCHC RDW 17.5 H Lymph % (Auto) Ralls % (Auto) 16.2 H Eos % (Auto) 10.8 H Lymph # Ralls # 1.3 H Eos # 0.9 H Seg Neutrophils % Seg Neuts % (Manual) Lymphocytes % (Manual) 10.0 L Monocytes % (Manual) 13.0 H Eosinophils % (Manual) 8.0 H Nucleated RBC % Seg Neutrophils # Lymphocytes # (Manual) 0.9 L Monocytes # (Manual) 1.1 H Eosinophils # (Manual) 0.7 H PT INR APTT POC ABG pH 7.313 L ABG pH POC ABG pCO2 55.0 H POC ABG pO2 ABG pO2 ABG HCO3 ABG O2 Saturation ABG Base Excess ABG Hemoglobin Oxyhemoglobin Sodium 135 L Potassium Chloride 94.3 L Carbon Dioxide BUN 117 H Creatinine 7.8 H Glucose POC Glucose Uric Acid Calcium 8.2 L Phosphorus Magnesium AST ALT Total Creatine Kinase CK-MB (CK-2) Troponin T NT-Pro-B Natriuret Pep Total Protein Albumin Triglycerides HDL Cholesterol Urine WBC (Auto) Urine Creatinine Urine Total Protein Vancomycin Trough 05/23/19 05/24/19 05/24/19 05:21 05:00 05:00 WBC RBC 3.18 L Hgb 8.5 L Hct 26.7 L MCV MCH 27 L MCHC RDW 17.9 H Lymph % (Auto) Ralls % (Auto) Eos % (Auto) Lymph # Ralls # Eos # Seg Neutrophils % Seg Neuts % (Manual) Lymphocytes % (Manual) Monocytes % (Manual) Eosinophils % (Manual) Nucleated RBC % Seg Neutrophils # Lymphocytes # (Manual) Monocytes # (Manual) Eosinophils # (Manual) PT INR APTT POC ABG pH ABG pH POC ABG pCO2 49.7 H POC ABG pO2 73 L ABG pO2 ABG HCO3 ABG O2 Saturation ABG Base Excess ABG Hemoglobin Oxyhemoglobin Sodium Potassium Chloride 95.7 L Carbon Dioxide BUN 97 H Creatinine 6.5 H Glucose POC Glucose Uric Acid Calcium 8.0 L Phosphorus Magnesium AST ALT Total Creatine Kinase CK-MB (CK-2) Troponin T NT-Pro-B Natriuret Pep Total Protein Albumin Triglycerides HDL Cholesterol Urine WBC (Auto) Urine Creatinine Urine Total Protein Vancomycin Trough 05/24/19 06:17 WBC RBC Hgb Hct MCV MCH MCHC RDW Lymph % (Auto) Ralls % (Auto) Eos % (Auto) Lymph # Ralls # Eos # Seg Neutrophils % Seg Neuts % (Manual) Lymphocytes % (Manual) Monocytes % (Manual) Eosinophils % (Manual) Nucleated RBC % Seg Neutrophils # Lymphocytes # (Manual) Monocytes # (Manual) Eosinophils # (Manual) PT INR APTT POC ABG pH 7.330 L ABG pH POC ABG pCO2 52.5 H POC ABG pO2 ABG pO2 ABG HCO3 ABG O2 Saturation ABG Base Excess ABG Hemoglobin Oxyhemoglobin Sodium Potassium Chloride Carbon Dioxide BUN Creatinine Glucose POC Glucose Uric Acid Calcium Phosphorus Magnesium AST ALT Total Creatine Kinase CK-MB (CK-2) Troponin T NT-Pro-B Natriuret Pep Total Protein Albumin Triglycerides HDL Cholesterol Urine WBC (Auto) Urine Creatinine Urine Total Protein Vancomycin Trough
--- NOTE | 2019-05-24 10:30 | Progress Note ---
Assessment and Plan # Acute kidney injury on HD: creatinine has worsened, potentially from vancomycin toxicity, now HD dependent. Initially with suspected tubular injury in setting of sepsis, respiratory failure, hypotension. - plan to continue HD // or prn; no indication for HD today - continue to assess for renal recovery - continue supportive measures, appreciate pulm and ID input - avoid nephrotoxins - appreciate vascular assistance with vas-cath placement # Hypernatremia: now resolved off [place]ine[place] - continue free water flushes with TF # HTN: BP reasonable, continue current management # Anemia: hemoglobin 8.5, pRBC transfusion prn. May start ESAs with HD # Encephalopathy, seizure disorder, hypoxic respiratory failure, fever: ID and pulm following We'll continue to follow and make recommendation from renal standpoint for this critically ill patient; we appreciate the opportunity to assist in his care. Subjective Date of service: 05/24/19 Principal diagnosis: HF; acute hypoxemic resp failure, SIRS, CARLA Interval history: No acute events noted. Remains intubated and sedated. Objective - Exam Narrative Exam: General: No acute distress/ intubated and sedated HEENT: ET tube in place Neck: Supple Chest:coarse mechanical breath sounds, PRVC with FiO2 50% Heart: Regular rate and rhythm Abdomen: Soft nontender Extremity: no edema Psych: sedated Derm: No petechial rash - Vital Signs Vital signs: Vital Signs - 12hr 05/23/19 05/23/19 05/23/19 22:30 22:45 23:00 Temperature Pulse Rate 103 H 102 H 103 H Pulse Rate [ From Monitor] Respiratory 16 19 15 Rate Blood Pressure 117/45 123/48 120/51 O2 Sat by Pulse 93 94 93 Oximetry 05/23/19 05/23/19 05/23/19 23:15 23:30 23:45 Temperature Pulse Rate 103 H 101 H 100 H Pulse Rate [ From Monitor] Respiratory 18 17 14 Rate Blood Pressure 128/55 120/50 122/47 O2 Sat by Pulse 94 93 93 Oximetry 05/23/19 05/24/19 05/24/19 23:53 00:00 00:15 Temperature 99.4 F Pulse Rate 100 H 99 H Pulse Rate [ 94 H From Monitor] Respiratory 16 18 Rate Blood Pressure 116/43 125/47 O2 Sat by Pulse 93 94 Oximetry 05/24/19 05/24/19 05/24/19 00:30 00:37 00:45 Temperature Pulse Rate 97 H 95 H Pulse Rate [ From Monitor] Respiratory 19 17 Rate Blood Pressure 115/41 115/41 113/38 O2 Sat by Pulse 94 94 94 Oximetry 05/24/19 05/24/19 05/24/19 01:00 01:08 01:15 Temperature Pulse Rate 95 H 93 H Pulse Rate [ From Monitor] Respiratory 19 16 16 Rate Blood Pressure 111/36 113/37 O2 Sat by Pulse 95 94 Oximetry 05/24/19 05/24/19 05/24/19 01:30 01:45 02:00 Temperature Pulse Rate 96 H 102 H 100 H Pulse Rate [ 88 From Monitor] Respiratory 26 H 22 20 Rate Blood Pressure 114/38 130/54 117/40 O2 Sat by Pulse 94 95 95 Oximetry 05/24/19 05/24/19 05/24/19 02:15 02:30 02:45 Temperature Pulse Rate 95 H 97 H 93 H Pulse Rate [ From Monitor] Respiratory 19 26 H 12 Rate Blood Pressure 113/35 121/45 113/41 O2 Sat by Pulse 94 96 95 Oximetry 05/24/19 05/24/19 05/24/19 03:00 03:15 03:30 Temperature Pulse Rate 93 H 94 H 96 H Pulse Rate [ From Monitor] Respiratory 17 14 16 Rate Blood Pressure 112/38 111/35 112/35 O2 Sat by Pulse 95 95 96 Oximetry 05/24/19 05/24/19 05/24/19 03:45 03:53 04:00 Temperature 100.8 F H Pulse Rate 105 H 101 H Pulse Rate [ 101 H From Monitor] Respiratory 17 12 Rate Blood Pressure 121/43 115/38 O2 Sat by Pulse 95 93 Oximetry 05/24/19 05/24/19 05/24/19 04:15 04:30 04:45 Temperature Pulse Rate 97 H 97 H 98 H Pulse Rate [ From Monitor] Respiratory 0 L 13 26 H Rate Blood Pressure 115/34 124/41 107/29 O2 Sat by Pulse 93 94 94 Oximetry 05/24/19 05/24/19 05/24/19 05:00 05:15 05:30 Temperature Pulse Rate 93 H 96 H 94 H Pulse Rate [ From Monitor] Respiratory 27 H 26 H 26 H Rate Blood Pressure 106/29 107/35 111/36 O2 Sat by Pulse 95 95 95 Oximetry 05/24/19 05/24/19 05/24/19 05:45 06:00 06:05 Temperature Pulse Rate 96 H 101 H 106 H Pulse Rate [ From Monitor] Respiratory 25 H 22 Rate Blood Pressure 105/34 122/42 122/42 O2 Sat by Pulse 93 93 95 Oximetry 05/24/19 05/24/19 05/24/19 06:15 06:30 06:33 Temperature Pulse Rate 109 H 108 H 105 H Pulse Rate [ From Monitor] Respiratory 22 20 Rate Blood Pressure 118/61 111/52 111/52 O2 Sat by Pulse 94 90 Oximetry 05/24/19 05/24/19 08:00 08:08 Temperature 100.4 F H Pulse Rate 105 H Pulse Rate [ From Monitor] Respiratory Rate Blood Pressure 111/52 O2 Sat by Pulse 90 Oximetry - Lab 05/24/19 05:00 05/24/19 05:00 Most recent lab results ABG pH 7.281 pH Units (7.350-7.450) L 05/20/19 05:48 ABG pCO2 52.0 mm Hg 05/20/19 05:48 ABG pO2 78.7 mm Hg (80.0-90.0) L 05/20/19 05:48 ABG HCO3 24.0 mmol/L (20.0-26.0) 05/20/19 05:48 ABG O2 Saturation 94.5 % (95.0-99.0) L 05/20/19 05:48 Calcium 8.0 mg/dL (8.4-10.2) L 05/24/19 05:00 Phosphorus 4.90 mg/dL (2.5-4.5) H 05/02/19 00:06 Magnesium 2.30 mg/dL (1.7-2.3) 05/02/19 00:06 Urine Creatinine 292.8 mg/dL (0.1-20.0) H 05/07/19 22:40 Urine Sodium 11 mmol/L 05/07/19 22:40 Urine Total Protein 269 mg/dL (5-11.8) H 05/07/19 22:40 Medications & Allergies - Medications Allergies/Adverse Reactions: Allergies No Known Allergies Allergy (Verified 05/01/19 20:27) Home Medications: Home Medications Medication Instructions Recorded Confirmed Last Taken Type No Known Home Medications [No 05/03/19 05/03/19 Unknown History Reported Home Medications] Active Medications: Generic Name Dose Route Start Last Admin Trade Name Freq PRN Reason Stop Dose Admin Acetaminophen 650 mg 05/01/19 22:46 05/24/19 09:10 Tylenol PO 650 mg Q4H PRN Administration Pain MILD(1-3)/Fever >100.5/FREEMAN Albumin Human 25 gm 05/19/19 10:47 Alburx 25% (Albumin) IV ARIANE PRN Hypotension Lipase/Protease/Amylase 1 each 05/14/19 15:01 Pancreaztanvir Fletcher 10,500 Unit FEEDTUBE PRN PRN For Clogged Feeding Tube Dextrose 50 gm 05/01/19 20:24 D50w (25gm) Vial IV Q30MIN PRN Hypoglycemia Protocol Enoxaparin Sodium 30 mg 05/16/19 10:00 05/24/19 09:09 Enoxaparin SUB-Q 30 mg QDAY VICKEY Administration Epoetin Hugo 10,000 unit 05/19/19 10:47 Procrit IV ARIANE PRN hemodialysis Famotidine 20 mg 05/16/19 10:00 05/24/19 09:12 Pepcid PO 20 mg DAILY VICKEY Administration Hydralazine HCl 20 mg 05/13/19 08:09 05/14/19 18:09 Apresoline IV 20 mg Q4HR PRN Administration SBP >/=160 Hydrophilic Ointment 1 applic 05/01/19 21:14 Vaseline Lip Therapy TP Q2HR PRN Dry Lips Fentanyl Citrate 2,000 mcg in 100 mls @ 10.195 mls/hr 05/01/19 22:00 05/24/19 06:32 Fentanyl Drip Premix IV 2 mcg/kg/hr TITR VICKEY 20.39 mls/hr Administration Protocol 1 MCG/KG/HR Propofol 1,000 mg in 100 mls @ 7.011 mls/hr 05/03/19 04:00 05/24/19 06:32 Diprivan 10 Mg/Ml IV 10 mcg/kg/min TITR VICKEY 14.022 mls/hr Administration Protocol 5 MCG/KG/MIN Norepinephrine 4 mg in 250 mls @ 7.5 mls/hr 05/03/19 18:00 05/20/19 08:04 Levophed Drip 4 Mg/Ns 250 Ml IV 0 mcg/min TITR VICKEY 0 mls/hr Titration Protocol 2 MCG/MIN Sodium Chloride 500 mls @ 10 mls/hr 05/06/19 15:00 Nacl 0.9% 500 Ml IV DIRECT VICKEY Metronidazole 500 mg in 100 mls @ 100 mls/hr 05/11/19 14:00 05/24/19 05:05 Flagyl 500 Mg/100 Ml IV 100 mls/hr Q8HR VICKEY Administration Protocol Nicardipine HCl 50 mg/ Sodium 250 mls @ 25 mls/hr 05/13/19 10:00 05/14/19 23:12 Chloride IV 0 mg/hr TITR VICKEY 0 mls/hr Titration Protocol 5 MG/HR Cefepime HCl 2 gm in 100 mls @ 200 mls/hr 05/18/19 11:00 05/23/19 10:04 Cefepime/Ns 2 Gm/100 Ml IV 200 mls/hr Q24HR VICKEY Administration Protocol Sodium Chloride 100 mls @ 999 mls/hr 05/19/19 10:47 05/20/19 08:14 Nacl 0.9% IV 999 mls/hr ARIANE PRN Administration Hypotension Labetalol HCl 100 mg 05/14/19 14:00 05/24/19 06:33 Labetalol PO 100 mg Q8HR VICKEY Administration Levetiracetam 750 mg 05/13/19 10:00 05/24/19 09:11 Keppra PO 750 mg BID VICKEY Administration Lorazepam 2 mg 05/06/19 06:22 05/10/19 16:17 Ativan IV 2 mg Q4H PRN Administration Seizures/AGITATION Multi-Ingred Cream/Lotion/Oil/Oint 1 applic 05/01/19 21:14 Artificial Tears Ophth Oint OU Q4HR PRN Dry Eye(s) Ondansetron HCl 4 mg 05/01/19 22:46 Zofran IV Q8H PRN Nausea And Vomiting Scopolamine 1 each 05/20/19 12:00 05/20/19 12:52 Transderm-Scop TD 1 each Q72HR VICKEY Administration Simple Syrup 15 ml 05/14/19 15:01 Simple Syrup FEEDTUBE PRN PRN Hypoglycemia Simple Syrup 30 ml 05/14/19 15:01 Simple Syrup FEEDTUBE PRN PRN Hypoglycemia Sodium Bicarbonate 325 mg 05/14/19 15:01 Sodium Bicarbonate FEEDTUBE PRN PRN For Clogged Feeding Tube Sodium Chloride 10 ml 05/02/19 10:00 05/24/19 09:13 Sodium Chloride Flush Syringe 10 Ml IV 10 ml BID VICKEY Administration Sodium Chloride 10 ml 05/01/19 22:46 05/05/19 02:28 Sodium Chloride Flush Syringe 10 Ml IV 10 ml PRN PRN Administration LINE FLUSH
--- NOTE | 2019-05-24 14:16 | Progress Note ---
Assessment and Plan Cultures: Blood cultures 05/11/19: no growth thus far Blood cultures 05/18/19 pending Sputum culture 05/11/19: no growth thus far urine culture: no growth resp culture: no growth Blood culture 05/18/2019: no growth thus far urine culture 05/20/2019: normal skin shandra, Jarad albicans sputum culture 05/20/2019: Jarad albicans Blood culture 05/23/2019: in process A/P: 34-year-old male with obesity admitted with: #Fever, SIRS with shock: shock resolved, intermittently febrile. Initially felt to be ?aspiration related. Apparently was using CPAP. Persistent febrile again, likely ?UTI. Repeat UA showed pyuria, had indwelling Han which was removed again 05/20. Urine culture with normal skin shandra. Fevers now recurred since 05/17. Should eval for worsening pneumonia, sinusitis, but unable to fit in CT scan. #Acute hypoxic hypercapneic respiratory failure, possibly obesity hypoventilation syndrome: on the vent. Pulmonary managing. #Morbid obesity #CARLA: creatinine elevated. dose abx accordingly. Now on HD via vascath #Elevated LFTs: RUQ US showed fatty liver, small GB sludge. Improving. #Acute encephalopathy with ?seizure activity: persistent fevers. Has been receiving empiric meningitis coverage #UTI: s/p han removal on 05/20 Recs: - continue cefepime, metronidazole, IV vancomycin renally adjusted - jarad in sputum does not need treatment, it almost never causes a pneumonia and is reflective of colonization, overgrowth in the setting of abx use - candiduria also generally does not require treatment, but in this patient with recurrent fever, reasonable to consider a trial of fluconazole renally adjusted - follow up blood cultures Burke Wilks MD, FACP [facility] ([facility]) C: [phone] O: [phone] F: [phone] Subjective Date of service: 05/24/19 Principal diagnosis: HF; acute hypoxemic resp failure, SIRS, CARLA Interval history: Remains intermittently febrile. Intubated, sedated on the vent. Unable to get CT due to his size. Objective - Exam Narrative Exam: Physical Exam: Constitutional: sedated, intubated. Morbid obesity Head, Ears, Nose: Normocephalic, atraumatic. External ears, nose normal Eyes: Conjunctivae/corneas clear. No icterus. No ptosis. Neck: intubated Oral: intubated Cardiovascular: S1, S2 normal. Respiratory: Good air entry, clear to auscultation bilaterally GI: Soft, non-tender; bowel sounds normal. No peritoneal signs Musculoskeletal: No pedal edema, no cyanosis. Skin: No rash or abscess Hem/Lymphatic: No palpable cervical or supraclavicular nodes. No lymphangitis Psych: no agitation Neurological: sedated, intubated, on vent - Constitutional Vitals: Vital Signs Temp Pulse Resp BP Pulse Ox 99.8 F H 95 H 24 102/31 92 05/24/19 12:00 05/24/19 11:21 05/24/19 11:15 05/24/19 11:21 05/24/19 11:21 Temperature -Last 24 Hours Temperature 99.8 F Temperature 100.4 F Temperature 100.8 F Temperature 99.4 F Temperature 99.5 F Temperature 100.4 F - Labs CBC & Chem 7: 05/24/19 05:00 05/24/19 05:00 Labs: Abnormal lab results 05/24/19 05/24/19 05/24/19 Range/Units 05:00 05:00 06:17 RBC 3.18 L (3.65-5.03) M/mm3 Hgb 8.5 L (11.8-15.2) gm/dl Hct 26.7 L (35.5-45.6) % MCH 27 L (28-32) pg RDW 17.9 H (13.2-15.2) % POC ABG pH 7.330 L (7.35-7.45) POC ABG pCO2 52.5 H (35-45) Chloride 95.7 L (98-107) mmol/L BUN 97 H (9-20) mg/dL Creatinine 6.5 H (0.8-1.5) mg/dL Calcium 8.0 L (8.4-10.2) mg/dL
[2019-05-24] MEDS: FLUCONAZOLE 200 MG 200 MG/100 ML BAG IV SCH (14:30)
[2019-05-25] MEDS: fentaNYL DRIP Premix 2,000 MCG/100 ML BAG IV SCH ×5 (02:47→20:22)
[2019-05-25] MEDS: metroNIDAZOLE/NS 500 MG/100 ML 500 MG/100 ML BAG IV SCH ×2 (07:11→13:55)
[2019-05-25] MEDS: ACETAMINOPHEN 325 MG TAB PO PRN ×2 (07:19→17:37)
--- NOTE | 2019-05-25 08:05 | Progress Note ---
Assessment and Plan Assessment and plan: Patient is a 34-year-old man who is morbidly obese (575 lbs) with unknown medical history who presented to [facility] ED on 05/01/2019 (I started seeing patient for the first time on 05/20/19, Day 19) with SOB. He was placed on BIPAP and failed. He had cardiac arrest in ED and was Intubated in ED. On 05/12/19- ETT exchanged due to hypoxia. In the chart there is a report that he has undiagnosis LANDON and using someone else CPAP. 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 Acute hypoxic and hypercapenic respiratory failure on vent >96hrs Status post intubation, continue sedation, consulted pulmonary And input noted still on high PEEP, making Tracheostomy difficult to attempt. Heating Element Repairer managing. Obesity Hypoventilation syndrome Patient previously on LANDON Management at home but per discussion with family, was non complaint Sepsis- not present on admission -On abx, ID following. LP when able ?Meningitis considering recurrent fever. Doubt, but ID following Acylovir stopped ?seizure activity -Meninigitis prophy -Neurology consult -EEG-negative Acute CHF, new onset, diastolic Diurese with IV lasix held, on HD now monitor I/O, daily weights Cardiology following. Added beta-jenny, no TIM inhibitor secondary to renal insufficiency Hypertension malignant Start antihypertensive, monitor blood pressure IV hydralazine as needed for further control Acute kidney injury due to ATN ?Vancomycin toxicity, Held. Monitor Nephrology following and input noted. Han for strict I/Os HD per nephrology Hyperkalemia-Kaylexate Passive congestive hepatic syndrome -LFT elevated but trending down -Noted Gallbladder sludge DVT prophylaxis with Lovenox Morbid obesity Full code status. Prognosis guarded +han removed +ETT +NGT +Fentanyl; and Rosemarie RUE PIcc off levaphed since morning 05/20/2019 receiving HD drool, with increased secretion, scopolamine patch helped ?trach consideration, intubated since admission 05/01/19==>high PEEP, ?PEG consideration Still febrile, I called his mother Magalis Jay at [phone] no family present History Interval history: Patient was seen and examined. Follow-up on current diagnosis of Respiratory failure. Overnight uneventful. Imaging, nursing note, chart, labs and old chart reviewed. Still intubated and sedated Hospitalist Physical - Physical exam Narrative exam: Gen: critically ill, bmi 70.1 sedated HEENT: NCAT, OP ETT in place Neck: supple, no adenopathy, no thyromegaly, no JVD CVS/Heart: tachycardiac, normal S1S2, pulses present bilaterally Chest/Lungs: tachypneic, Symmetrical chest expansion, good air entry bilaterally GI/Abdomen: soft, NTND, good bowel sounds, no guarding or rebound : scrotal edema, unable to see his penis Extermity/Skin: good skin turgor MSK: sedated Neuro: sedated Psych: sedated - Constitutional Vitals: Temp Pulse Resp BP Pulse Ox 100.4 F H 104 H 26 H 115/42 93 05/25/19 03:17 05/25/19 07:12 05/25/19 06:15 05/25/19 07:12 05/25/19 06:15 General appearance: Present: no acute distress Results - Labs CBC & Chem 7: 05/24/19 05:00 05/24/19 05:00 Labs: Laboratory Last Values WBC 6.9 K/mm3 (4.5-11.0) 05/24/19 05:00 RBC 3.18 M/mm3 (3.65-5.03) L 05/24/19 05:00 Hgb 8.5 gm/dl (11.8-15.2) L 05/24/19 05:00 Hct 26.7 % (35.5-45.6) L 05/24/19 05:00 MCV 84 fl (84-94) 05/24/19 05:00 MCH 27 pg (28-32) L 05/24/19 05:00 MCHC 32 % (32-34) 05/24/19 05:00 RDW 17.9 % (13.2-15.2) H 05/24/19 05:00 Plt Count 289 K/mm3 (140-440) 05/24/19 05:00 Lymph % (Auto) 7.9 % (13.4-35.0) L 05/18/19 01:50 Republic % (Auto) 16.2 % (0.0-7.3) H 05/22/19 06:25 Eos % (Auto) 10.8 % (0.0-4.3) H 05/22/19 06:25 Baso % (Auto) 0.2 % (0.0-1.8) 05/18/19 01:50 Lymph # 0.7 K/mm3 (1.2-5.4) L 05/18/19 01:50 Republic # 1.3 K/mm3 (0.0-0.8) H 05/22/19 06:25 Eos # 0.9 K/mm3 (0.0-0.4) H 05/22/19 06:25 Baso # 0.0 K/mm3 (0.0-0.1) 05/22/19 06:25 Add Manual Diff Complete 05/22/19 06:25 Total Counted 100 05/22/19 06:25 Seg Neutrophils % 65.5 % (40.0-70.0) 05/22/19 06:25 Seg Neuts % (Manual) 65.0 % (40.0-70.0) 05/22/19 06:25 Band Neutrophils % 3.0 % 05/22/19 06:25 Lymphocytes % (Manual) 10.0 % (13.4-35.0) L 05/22/19 06:25 Reactive Lymphs % (Man) 0 % 05/22/19 06:25 Monocytes % (Manual) 13.0 % (0.0-7.3) H 05/22/19 06:25 Eosinophils % (Manual) 8.0 % (0.0-4.3) H 05/22/19 06:25 Basophils % (Manual) 0 % (0.0-1.8) 05/22/19 06:25 Metamyelocytes % 1.0 % 05/22/19 06:25 Myelocytes % 0 % 05/22/19 06:25 Promyelocytes % 0 % 05/22/19 06:25 Blast Cells % 0 % 05/22/19 06:25 Nucleated RBC % Not Reportable 05/22/19 06:25 Seg Neutrophils # 5.3 K/mm3 (1.8-7.7) 05/22/19 06:25 Seg Neutrophils # Man 5.6 K/mm3 (1.8-7.7) 05/22/19 06:25 Band Neutrophils # 0.3 K/mm3 05/22/19 06:25 Lymphocytes # (Manual) 0.9 K/mm3 (1.2-5.4) L 05/22/19 06:25 Abs React Lymphs (Man) 0.0 K/mm3 05/22/19 06:25 Monocytes # (Manual) 1.1 K/mm3 (0.0-0.8) H 05/22/19 06:25 Eosinophils # (Manual) 0.7 K/mm3 (0.0-0.4) H 05/22/19 06:25 Basophils # (Manual) 0.0 K/mm3 (0.0-0.1) 05/22/19 06:25 Metamyelocytes # 0.1 K/mm3 05/22/19 06:25 Myelocytes # 0.0 K/mm3 05/22/19 06:25 Promyelocytes # 0.0 K/mm3 05/22/19 06:25 Blast Cells # 0.0 K/mm3 05/22/19 06:25 WBC Morphology Not Reportable 05/22/19 06:25 Hypersegmented Neuts Not Reportable 05/22/19 06:25 Hyposegmented Neuts Not Reportable 05/22/19 06:25 Hypogranular Neuts Not Reportable 05/22/19 06:25 Smudge Cells Not Reportable 05/22/19 06:25 Toxic Granulation Not Reportable 05/22/19 06:25 Toxic Vacuolation Not Reportable 05/22/19 06:25 Dohle Bodies Not Reportable 05/22/19 06:25 Pelger-Huet Anomaly Not Reportable 05/22/19 06:25 Renea Rods Not Reportable 05/22/19 06:25 Platelet Estimate Consistent w auto 05/22/19 06:25 Clumped Platelets Not Reportable 05/22/19 06:25 Plt Clumps, EDTA Not Reportable 05/22/19 06:25 Large Platelets Not Reportable 05/22/19 06:25 Giant Platelets Not Reportable 05/22/19 06:25 Platelet Satelliting Not Reportable 05/22/19 06:25 Plt Morphology Comment Not Reportable 05/22/19 06:25 RBC Morphology Not Reportable 05/22/19 06:25 Dimorphic RBCs Not Reportable 05/22/19 06:25 Polychromasia Not Reportable 05/22/19 06:25 Hypochromasia Few 05/22/19 06:25 Poikilocytosis Not Reportable 05/22/19 06:25 Anisocytosis Not Reportable 05/22/19 06:25 Microcytosis Not Reportable 05/22/19 06:25 Macrocytosis Not Reportable 05/22/19 06:25 Spherocytes Not Reportable 05/22/19 06:25 Pappenheimer Bodies Not Reportable 05/22/19 06:25 Sickle Cells Not Reportable 05/22/19 06:25 Target Cells Not Reportable 05/22/19 06:25 Tear Drop Cells Not Reportable 05/22/19 06:25 Ovalocytes Few 05/22/19 06:25 Stomatocytes Few 05/22/19 06:25 Helmet Cells Not Reportable 05/22/19 06:25 [place] Bodies Not Reportable 05/22/19 06:25 [place] Rings Not Reportable 05/22/19 06:25 [place] Cells Not Reportable 05/22/19 06:25 Bite Cells Not Reportable 05/22/19 06:25 Crenated Cell Not Reportable 05/22/19 06:25 Elliptocytes Not Reportable 05/22/19 06:25 Acanthocytes (Spur) Not Reportable 05/22/19 06:25 Rouleaux Not Reportable 05/22/19 06:25 Hemoglobin C Crystals Not Reportable 05/22/19 06:25 Schistocytes Few 05/22/19 06:25 Malaria parasites Not Reportable 05/22/19 06:25 Syed Bodies Not Reportable 05/22/19 06:25 Hem Pathologist Commnt No 05/22/19 06:25 PT 15.4 Sec. (12.2-14.9) H 05/01/19 Unknown INR 1.23 (0.87-1.13) H 05/01/19 Unknown APTT 22.7 Sec. (24.2-36.6) L 05/01/19 Unknown POC ABG pH 7.330 (7.35-7.45) L 05/24/19 06:17 ABG pH 7.281 pH Units (7.350-7.450) L 05/20/19 05:48 POC ABG pCO2 52.5 (35-45) H 05/24/19 06:17 ABG pCO2 52.0 mm Hg 05/20/19 05:48 POC ABG pO2 96 (80-105) 05/24/19 06:17 ABG pO2 78.7 mm Hg (80.0-90.0) L 05/20/19 05:48 POC ABG HCO3 27.7 (22-26 mml/L) 05/24/19 06:17 ABG HCO3 24.0 mmol/L (20.0-26.0) 05/20/19 05:48 POC ABG Total CO2 29 (23-27mmol/L) 05/24/19 06:17 POC ABG O2 Sat 97 05/24/19 06:17 ABG O2 Saturation 94.5 % (95.0-99.0) L 05/20/19 05:48 ABG O2 Content 13.0 (0.0-44) 05/20/19 05:48 POC ABG Base Excess 2 ((-2) - (+3)mmol/L) 05/24/19 06:17 ABG Base Excess -3.0 mmol/L (-2.0-3.0) L 05/20/19 05:48 ABG Hemoglobin 9.9 gm/dl (14.0-18.0) L 05/20/19 05:48 ABG Carboxyhemoglobin 1.6 % (0.0-5.0) 05/20/19 05:48 ABG Methemoglobin 0.6 % (0.0-1.5) 05/20/19 05:48 Oxyhemoglobin 92.5 % (95.0-99.0) L 05/20/19 05:48 FiO2 50 % 05/24/19 06:17 Sodium 139 mmol/L (137-145) 05/24/19 05:00 Potassium 4.5 mmol/L (3.6-5.0) 05/24/19 05:00 Chloride 95.7 mmol/L (98-107) L 05/24/19 05:00 Carbon Dioxide 22 mmol/L (22-30) 05/24/19 05:00 Anion Gap 26 mmol/L 05/24/19 05:00 BUN 97 mg/dL (9-20) H 05/24/19 05:00 Creatinine 6.5 mg/dL (0.8-1.5) H 05/24/19 05:00 Estimated GFR 12 ml/min 05/24/19 05:00 BUN/Creatinine Ratio 15 % 05/24/19 05:00 Glucose 79 mg/dL (75-100) 05/24/19 05:00 POC Glucose 81 (70-105) 05/25/19 05:30 Osmolality 327 Mosm/kg 05/07/19 13:45 Uric Acid 18.0 mg/dL (3.5-7.6) H 05/07/19 13:45 Calcium 8.0 mg/dL (8.4-10.2) L 05/24/19 05:00 Phosphorus 4.90 mg/dL (2.5-4.5) H 05/02/19 00:06 Magnesium 2.30 mg/dL (1.7-2.3) 05/02/19 00:06 Total Bilirubin 0.20 mg/dL (0.1-1.2) 05/10/19 05:00 AST 34 units/L (5-40) 05/10/19 05:00 ALT 35 units/L (7-56) 05/10/19 05:00 Alkaline Phosphatase 45 units/L (35-129) 05/10/19 05:00 Total Creatine Kinase 131 units/L (55-170) 05/02/19 04:41 CK-MB (CK-2) 5.2 ng/mL (0.0-4.0) H 05/02/19 04:41 CK-MB (CK-2) Rel Index 3.9 (0-4) 05/02/19 04:41 Troponin T 0.067 ng/mL (0.00-0.029) H D 05/02/19 04:41 NT-Pro-B Natriuret Pep 6831 pg/mL (0-450) H 05/01/19 Unknown Total Protein 6.1 g/dL (6.3-8.2) L 05/10/19 05:00 Albumin 2.5 g/dL (3.9-5) L 05/10/19 05:00 Albumin/Globulin Ratio 0.7 % 05/10/19 05:00 Triglycerides 173 mg/dL (2-149) H 05/17/19 Unknown Cholesterol 173 mg/dL (50-199) 05/02/19 00:06 LDL Cholesterol Direct 126 mg/dL (50-130) 05/02/19 00:06 HDL Cholesterol 18 mg/dL (40-59) L 05/02/19 00:06 Cholesterol/HDL Ratio 9.61 % 05/02/19 00:06 Procalcitonin 0.54 ng/mL (<0.15) 05/03/19 11:52 Urine Color Yellow (Yellow) 05/20/19 12:00 Urine Turbidity Cloudy (Clear) 05/20/19 12:00 Urine pH 5.0 (5.0-7.0) 05/20/19 12:00 Ur Specific [place] 1.015 (1.003-1.030) 05/20/19 12:00 Urine Protein 30 mg/dl mg/dL (Negative) 05/20/19 12:00 Urine Glucose (UA) Neg mg/dL (Negative) 05/20/19 12:00 Urine Ketones Neg mg/dL (Negative) 05/20/19 12:00 Urine Blood Lg (Negative) 05/20/19 12:00 Urine Nitrite Neg (Negative) 05/20/19 12:00 Urine Bilirubin Neg (Negative) 05/20/19 12:00 Urine Urobilinogen < 2.0 mg/dL (<2.0) 05/20/19 12:00 Ur Leukocyte Esterase Mod (Negative) 05/20/19 12:00 Urine WBC (Auto) 26.0 /HPF (0.0-6.0) H 05/20/19 12:00 Urine RBC (Auto) 83.0 /HPF (0.0-6.0) 05/20/19 12:00 Urine Bacteria (Auto) 1+ /HPF (Negative) 05/20/19 12:00 Uric Acid Crystals 3+ 05/03/19 10:55 Urine Mucus Few /HPF 05/20/19 12:00 Urine Yeast (Budding) 3+ /HPF 05/20/19 12:00 Urine Creatinine 292.8 mg/dL (0.1-20.0) H 05/07/19 22:40 Urine Sodium 11 mmol/L 05/07/19 22:40 Urine Total Protein 269 mg/dL (5-11.8) H 05/07/19 22:40 Vancomycin Trough 20.5 ug/mL (5.0-20.0) H 05/15/19 09:00 Random Vancomycin 14.0 ug/mL (0-40.0) 05/21/19 05:20 AMNA Screen Negative (Negative) 05/07/19 13:45 Hepatitis A IgM Ab Non-reactive (NonReactive) 05/07/19 13:45 Hep Bs Antigen Non-reactive (Negative) 05/07/19 13:45 Hep B Core IgM Ab Non-reactive (NonReactive) 05/07/19 13:45 Hepatitis C Antibody Non-reactive (NonReactive) 05/07/19 13:45 Active Medications - Current Medications Current Medications: Generic Name Dose Route Start Last Admin Trade Name Freq PRN Reason Stop Dose Admin Acetaminophen 650 mg 05/01/19 22:46 05/25/19 07:19 Tylenol PO 650 mg Q4H PRN Administration Pain MILD(1-3)/Fever >100.5/FREEMAN Albumin Human 25 gm 05/19/19 10:47 Alburx 25% (Albumin) IV ARIANE PRN Hypotension Lipase/Protease/Amylase 1 each 05/14/19 15:01 Pancremannie Fletcher 10,500 Unit FEEDTUBE PRN PRN For Clogged Feeding Tube Dextrose 50 gm 05/01/19 20:24 D50w (25gm) Vial IV Q30MIN PRN Hypoglycemia Protocol Enoxaparin Sodium 30 mg 05/16/19 10:00 05/24/19 09:09 Enoxaparin SUB-Q 30 mg QDAY VICKEY Administration Epoetin Hugo 10,000 unit 05/19/19 10:47 Procrit IV ARIANE PRN hemodialysis Famotidine 20 mg 05/16/19 10:00 05/24/19 09:12 Pepcid PO 20 mg DAILY VICKEY Administration Hydralazine HCl 20 mg 05/13/19 08:09 05/14/19 18:09 Apresoline IV 20 mg Q4HR PRN Administration SBP >/=160 Hydrophilic Ointment 1 applic 05/01/19 21:14 Vaseline Lip Therapy TP Q2HR PRN Dry Lips Fentanyl Citrate 2,000 mcg in 100 mls @ 10.195 mls/hr 05/01/19 22:00 05/25/19 07:19 Fentanyl Drip Premix IV 2 mcg/kg/hr TITR VICKEY 20.39 mls/hr Administration Protocol 1 MCG/KG/HR Propofol 1,000 mg in 100 mls @ 7.011 mls/hr 05/03/19 04:00 05/25/19 04:01 Diprivan 10 Mg/Ml IV 5 mcg/kg/min TITR VICKEY 7.011 mls/hr Titration Protocol 5 MCG/KG/MIN Norepinephrine 4 mg in 250 mls @ 7.5 mls/hr 05/03/19 18:00 05/20/19 08:04 Levophed Drip 4 Mg/Ns 250 Ml IV 0 mcg/min TITR VICKEY 0 mls/hr Titration Protocol 2 MCG/MIN Sodium Chloride 500 mls @ 10 mls/hr 05/06/19 15:00 Nacl 0.9% 500 Ml IV DIRECT VICKEY Metronidazole 500 mg in 100 mls @ 100 mls/hr 05/11/19 14:00 05/25/19 07:11 Flagyl 500 Mg/100 Ml IV 100 mls/hr Q8HR VICKEY Administration Protocol Nicardipine HCl 50 mg/ Sodium 250 mls @ 25 mls/hr 05/13/19 10:00 05/14/19 23:12 Chloride IV 0 mg/hr TITR VICKEY 0 mls/hr Titration Protocol 5 MG/HR Cefepime HCl 2 gm in 100 mls @ 200 mls/hr 05/18/19 11:00 05/24/19 20:17 Cefepime/Ns 2 Gm/100 Ml IV Infused Q24HR VICKEY Infusion Protocol Sodium Chloride 100 mls @ 999 mls/hr 05/19/19 10:47 05/20/19 08:14 Nacl 0.9% IV 999 mls/hr ARIANE PRN Administration Hypotension Fluconazole 200 mg in 100 mls @ 100 mls/hr 05/24/19 15:00 05/24/19 20:18 Diflucan IV Infused Q24H VICKEY Infusion Protocol Labetalol HCl 100 mg 05/14/19 14:00 05/25/19 07:12 Labetalol PO 100 mg Q8HR VICKEY Administration Levetiracetam 750 mg 05/13/19 10:00 05/24/19 22:32 Keppra PO 750 mg BID VICKEY Administration Lorazepam 2 mg 05/06/19 06:22 05/10/19 16:17 Ativan IV 2 mg Q4H PRN Administration Seizures/AGITATION Multi-Ingred Cream/Lotion/Oil/Oint 1 applic 05/01/19 21:14 Artificial Tears Ophth Oint OU Q4HR PRN Dry Eye(s) Ondansetron HCl 4 mg 05/01/19 22:46 Zofran IV Q8H PRN Nausea And Vomiting Scopolamine 1 each 05/20/19 12:00 05/20/19 12:52 Transderm-Scop TD 1 each Q72HR VICKEY Administration Simple Syrup 15 ml 05/14/19 15:01 Simple Syrup FEEDTUBE PRN PRN Hypoglycemia Simple Syrup 30 ml 05/14/19 15:01 Simple Syrup FEEDTUBE PRN PRN Hypoglycemia Sodium Bicarbonate 325 mg 05/14/19 15:01 Sodium Bicarbonate FEEDTUBE PRN PRN For Clogged Feeding Tube Sodium Chloride 10 ml 05/02/19 10:00 05/24/19 22:33 Sodium Chloride Flush Syringe 10 Ml IV 10 ml BID VICKEY Administration Sodium Chloride 10 ml 05/01/19 22:46 05/05/19 02:28 Sodium Chloride Flush Syringe 10 Ml IV 10 ml PRN PRN Administration LINE FLUSH Nutrition/Malnutrition Assess - Dietary Evaluation Nutrition/Malnutrition Findings: Nutrition Notes Start: 05/04/19 12:54 Freq: Status: Active Protocol: Document 05/21/19 10:08 LM (Rec: 05/21/19 10:26 LM [id number]) Nutrition Notes Initial or Follow up Reassessment Current Diagnosis Acute Kidney Injury,Sepsis, Respiratory Failure Current Diet Nepro 1.8 at 50 ml/hr Labs/Tests Na 137 BUN 102 Cr 7 BG 103 Pertinent Medications Propofol at 7.011 ml/hr (185 kcal) Height 6 ft 4 in Weight 261.4 kg [place] Body Weight (kg) 91.81 BMI 70.1 Weight change and time frame Wt change noted. Likely due to fluid Weight Status Morbidly Obese Subjective/Other Information Nepro running at 50 ml/hr at time of visit. Will keep flush at 150 ml q4h until Na increases. Pt received HD on 05/20. Pt tolerating TF. Percent of energy/protein needs met: 86%/43% Burn Absent Trauma Absent Current % PO Negligible Minimum of two criteria No physical signs of malnutrition #1 Nutrition Diagnosis Inadequate oral intake Diagnosis Progress(for reassessment Continues documentation) Is patient on ventilator? Yes Is Patient Ambulatory and/or Out of Bed No REE-([facility]-confined to bed) 4392.636 Kcal/Kg value to use for calculation 11 Approximate Energy Requirements Using 2875 kcal/Kg Calculation Used for Recommendations Kcal/kg Additional Notes Energy needs: 2503 kcal PRO needs: 225 g (up to 2.5 g/ kg 91.81 IBW) Fluid needs: 1 ml/kcal Nutrition Intervention Change Diet Order: Continue TF Nutrition Support: Nepro 1.8 at 50 ml/hr flush 150 ml q4hr for hyponatremia flush 200 ml q4h once hyponatremia resolves Kcal 2,160 Protein (gm) 97 Fluid (mL) 872 Goal #1 TF tolerance Goal #2 Meet at least 75% kcal/PRO needs via TF Anticipated Discharge Needs: Unable to determine at this time Follow-Up By: 05/28/19 Additional Comments F/U for TF tolerance/Na lab
[2019-05-25] MEDS ORDERED: WATER FOR INJ Sterile (PF) 10 ML ONE ×2 (09:16→13:39)
[2019-05-25] MEDS: ALTEPLASE 2 MG INJ IV PRN ×2 (09:20→09:21)
[2019-05-25] MEDS ORDERED: SODIUM CHLORIDE 0.9% 100 ML IV PRN (09:30)
[2019-05-25] MEDS: ENOXAPARIN 30 MG/0.3 ML INJ SUB-Q SCH (10:05)
[2019-05-25] MEDS: levETIRAcetam 500 MG/5 ML ORAL LIQD PO SCH ×2 (10:05→22:02)
[2019-05-25] MEDS: FAMOTIDINE 20 MG TAB PO SCH (10:06)
[2019-05-25] MEDS: CEFEPIME/NS 2 GM/100 ML 2 GM/100 ML BAG IV SCH (10:06)
[2019-05-25] MEDS ORDERED: ALTEPLASE 2 MG INJ IV NR (13:32)
--- NOTE | 2019-05-25 13:55 | Progress Note ---
Assessment and Plan 34 y/o male with acute hypoxic, hypercapnic respiratory failure currently ventilated and sedated, now with persistent fevers and seizure and on HD No new recs for today. 1. ID: Patient unable to fit in scanner so CT of head sinus, chest will not happen. ID has placed back on renally adjusted Vanc. he has grown out jarad from urine and a tracheal aspirate 2. Pulm: Dropped FiO2 to 45. However, would not like to start weaning PEEP until FiO2 is at 40% or lower. 3. Renal: HD per renal 4. Day number of 22 of intubation. 5. Trying to avoid trach as much as possible. He is on his third week of intubation. However still requiring high levels of PEEP. At this point, once weaned to normal PEEP levels, hoping that we can extubate. CCT 31 minutes. Subjective Date of service: 05/25/19 Principal diagnosis: HF; acute hypoxemic resp failure, SIRS, CARLA Interval history: No acute events. Tolerating 45% Objective Vital Signs - 12hr 05/25/19 05/25/19 05/25/19 02:00 02:15 02:31 Temperature Pulse Rate 97 H 96 H 97 H Respiratory Rate Blood Pressure 101/38 101/38 101/38 O2 Sat by Pulse 94 95 93 Oximetry O2 Sat by Pulse Oximetry [ Anterior Bilateral Throughout] O2 Sat by Pulse Oximetry [ Bilateral Bases ] 05/25/19 05/25/19 05/25/19 02:45 03:01 03:15 Temperature Pulse Rate 99 H 113 H 116 H Respiratory 17 Rate Blood Pressure 101/38 101/38 101/38 O2 Sat by Pulse 94 97 89 Oximetry O2 Sat by Pulse Oximetry [ Anterior Bilateral Throughout] O2 Sat by Pulse Oximetry [ Bilateral Bases ] 05/25/19 05/25/19 05/25/19 03:17 03:31 03:45 Temperature 100.4 F H Pulse Rate 116 H 114 H Respiratory 22 16 Rate Blood Pressure 101/38 101/38 O2 Sat by Pulse 83 L 93 Oximetry O2 Sat by Pulse Oximetry [ Anterior Bilateral Throughout] O2 Sat by Pulse Oximetry [ Bilateral Bases ] 05/25/19 05/25/19 05/25/19 04:00 04:15 04:31 Temperature Pulse Rate 114 H 108 H 106 H Respiratory 18 20 18 Rate Blood Pressure 118/52 118/52 118/52 O2 Sat by Pulse 91 92 92 Oximetry O2 Sat by Pulse Oximetry [ Anterior Bilateral Throughout] O2 Sat by Pulse Oximetry [ Bilateral Bases ] 05/25/19 05/25/19 05/25/19 04:45 05:00 05:15 Temperature Pulse Rate 111 H 103 H 99 H Respiratory 18 21 22 Rate Blood Pressure 118/52 115/47 115/47 O2 Sat by Pulse 92 93 94 Oximetry O2 Sat by Pulse Oximetry [ Anterior Bilateral Throughout] O2 Sat by Pulse Oximetry [ Bilateral Bases ] 05/25/19 05/25/19 05/25/19 05:31 05:45 06:00 Temperature Pulse Rate 99 H 99 H 97 H Respiratory 25 H 23 25 H Rate Blood Pressure 115/47 115/47 107/48 O2 Sat by Pulse 95 94 95 Oximetry O2 Sat by Pulse Oximetry [ Anterior Bilateral Throughout] O2 Sat by Pulse Oximetry [ Bilateral Bases ] 05/25/19 05/25/19 05/25/19 06:15 06:31 06:45 Temperature Pulse Rate 106 H 108 H 110 H Respiratory 26 H 23 21 Rate Blood Pressure 107/48 107/48 107/48 O2 Sat by Pulse 93 93 94 Oximetry O2 Sat by Pulse Oximetry [ Anterior Bilateral Throughout] O2 Sat by Pulse Oximetry [ Bilateral Bases ] 05/25/19 05/25/19 05/25/19 07:00 07:12 07:15 Temperature Pulse Rate 107 H 104 H 108 H Respiratory 26 H 16 Rate Blood Pressure 115/42 115/42 107/48 O2 Sat by Pulse 94 94 Oximetry O2 Sat by Pulse Oximetry [ Anterior Bilateral Throughout] O2 Sat by Pulse Oximetry [ Bilateral Bases ] 05/25/19 05/25/19 05/25/19 07:31 07:45 08:00 Temperature 102.2 F H Pulse Rate 109 H 104 H 102 H Respiratory 16 15 25 H Rate Blood Pressure 107/48 115/42 108/39 O2 Sat by Pulse 92 91 94 Oximetry O2 Sat by Pulse Oximetry [ Anterior Bilateral Throughout] O2 Sat by Pulse Oximetry [ Bilateral Bases ] 05/25/19 05/25/19 05/25/19 08:15 08:30 08:45 Temperature Pulse Rate 101 H 104 H 96 H Respiratory 25 H 21 13 Rate Blood Pressure 108/39 118/49 111/37 O2 Sat by Pulse 93 96 94 Oximetry O2 Sat by Pulse Oximetry [ Anterior Bilateral Throughout] O2 Sat by Pulse Oximetry [ Bilateral Bases ] 05/25/19 05/25/19 05/25/19 09:00 09:15 09:30 Temperature Pulse Rate 111 H 118 H 114 H Respiratory 12 24 29 H Rate Blood Pressure 115/38 114/71 123/67 O2 Sat by Pulse 93 89 89 Oximetry O2 Sat by Pulse Oximetry [ Anterior Bilateral Throughout] O2 Sat by Pulse Oximetry [ Bilateral Bases ] 05/25/19 05/25/19 05/25/19 09:39 10:00 10:15 Temperature 102.2 F H Pulse Rate 100 H 100 H 98 H Respiratory 24 Rate Blood Pressure 108/50 123/52 108/42 O2 Sat by Pulse Oximetry O2 Sat by Pulse 98 Oximetry [ Anterior Bilateral Throughout] O2 Sat by Pulse 98 Oximetry [ Bilateral Bases ] 05/25/19 05/25/19 05/25/19 10:25 10:31 10:45 Temperature Pulse Rate 93 H 93 H 98 H Respiratory Rate Blood Pressure 108/42 112/44 113/44 O2 Sat by Pulse 93 Oximetry O2 Sat by Pulse Oximetry [ Anterior Bilateral Throughout] O2 Sat by Pulse Oximetry [ Bilateral Bases ] 05/25/19 05/25/19 05/25/19 11:00 11:15 11:30 Temperature Pulse Rate 96 H 96 H 97 H Respiratory Rate Blood Pressure 115/47 116/53 115/49 O2 Sat by Pulse Oximetry O2 Sat by Pulse Oximetry [ Anterior Bilateral Throughout] O2 Sat by Pulse Oximetry [ Bilateral Bases ] 05/25/19 05/25/19 05/25/19 11:45 12:00 12:15 Temperature Pulse Rate 96 H 100 H 106 H Respiratory Rate Blood Pressure 113/46 107/41 120/45 O2 Sat by Pulse Oximetry O2 Sat by Pulse Oximetry [ Anterior Bilateral Throughout] O2 Sat by Pulse Oximetry [ Bilateral Bases ] 05/25/19 05/25/19 05/25/19 12:30 12:45 13:00 Temperature Pulse Rate 112 H 94 H 100 H Respiratory Rate Blood Pressure 124/52 109/47 110/50 O2 Sat by Pulse Oximetry O2 Sat by Pulse Oximetry [ Anterior Bilateral Throughout] O2 Sat by Pulse Oximetry [ Bilateral Bases ] 05/25/19 05/25/19 05/25/19 13:16 13:30 13:40 Temperature 100.8 F H Pulse Rate 93 H 91 H 91 H Respiratory 13 Rate Blood Pressure 105/39 106/38 106/38 O2 Sat by Pulse Oximetry O2 Sat by Pulse 97 Oximetry [ Anterior Bilateral Throughout] O2 Sat by Pulse Oximetry [ Bilateral Bases ] Constitutional: other (morbidly obese male, sedated on vent, orally intubated) Eyes: non-icteric ENT: oropharynx moist Neck: other (extremely large in circumference) Effort: normal Ascultation: Bilateral: diminished breath sounds (secondary to body habitus) Cardiovascular: regular rate and rhythm (no mrg) Gastrointestinal: normoactive bowel sounds, non-tender, other (obese) Integumentary: other (L hand is wrapped) Extremities: no cyanosis, pink and warm, other (1+ generalized edema) Neurologic: unable to assess Psychiatric: other (unable to assess) CBC and BMP: 05/24/19 05:00 05/24/19 05:00 ABG, PT/INR, D-dimer: ABG POC ABG pH 7.313 (7.35-7.45) L 05/25/19 04:22 ABG pH 7.281 pH Units (7.350-7.450) L 05/20/19 05:48 POC ABG pCO2 51.1 (35-45) H 05/25/19 04:22 ABG pCO2 52.0 mm Hg 05/20/19 05:48 POC ABG pO2 77 (80-105) L 05/25/19 04:22 ABG pO2 78.7 mm Hg (80.0-90.0) L 05/20/19 05:48 POC ABG HCO3 25.9 (22-26 mml/L) 05/25/19 04:22 POC ABG Total CO2 27 (23-27mmol/L) 05/25/19 04:22 POC ABG O2 Sat 94 05/25/19 04:22 ABG O2 Saturation 94.5 % (95.0-99.0) L 05/20/19 05:48 PT/INR, D-dimer PT 15.4 Sec. (12.2-14.9) H 05/01/19 Unknown INR 1.23 (0.87-1.13) H 05/01/19 Unknown Abnormal lab findings: Abnormal Labs 05/01/19 05/01/19 05/01/19 17:50 19:26 22:36 WBC RBC Hgb Hct MCV MCH MCHC RDW Lymph % (Auto) [place] % (Auto) Eos % (Auto) Lymph # [place] # Eos # Seg Neutrophils % Seg Neuts % (Manual) Lymphocytes % (Manual) Monocytes % (Manual) Eosinophils % (Manual) Nucleated RBC % Seg Neutrophils # Lymphocytes # (Manual) Monocytes # (Manual) Eosinophils # (Manual) PT INR APTT POC ABG pH 7.272 L 7.331 L ABG pH POC ABG pCO2 52.8 H POC ABG pO2 ABG pO2 ABG HCO3 ABG O2 Saturation ABG Base Excess ABG Hemoglobin Oxyhemoglobin Sodium 136 L Potassium 6.5 H* Chloride 97.2 L Carbon Dioxide BUN 60 H Creatinine Glucose 113 H POC Glucose Uric Acid Calcium Phosphorus Magnesium 2.40 H AST 139 H ALT 154 H Total Creatine Kinase CK-MB (CK-2) Troponin T NT-Pro-B Natriuret Pep Total Protein Albumin 3.8 L Triglycerides HDL Cholesterol Urine WBC (Auto) Urine Creatinine Urine Total Protein Vancomycin Trough 05/01/19 05/01/19 05/01/19 Unknown Unknown Unknown WBC 16.1 H RBC Hgb Hct MCV MCH MCHC RDW 17.2 H Lymph % (Auto) [place] % (Auto) 9.6 H Eos % (Auto) Lymph # [place] # 1.5 H Eos # Seg Neutrophils % 73.0 H Seg Neuts % (Manual) Lymphocytes % (Manual) Monocytes % (Manual) Eosinophils % (Manual) Nucleated RBC % Seg Neutrophils # 11.7 H Lymphocytes # (Manual) Monocytes # (Manual) Eosinophils # (Manual) PT 15.4 H INR 1.23 H APTT 22.7 L POC ABG pH ABG pH POC ABG pCO2 POC ABG pO2 ABG pO2 ABG HCO3 ABG O2 Saturation ABG Base Excess ABG Hemoglobin Oxyhemoglobin Sodium Potassium Chloride Carbon Dioxide BUN Creatinine Glucose POC Glucose Uric Acid Calcium Phosphorus Magnesium AST ALT Total Creatine Kinase CK-MB (CK-2) Troponin T NT-Pro-B Natriuret Pep 6831 H Total Protein Albumin Triglycerides HDL Cholesterol Urine WBC (Auto) Urine Creatinine Urine Total Protein Vancomycin Trough 05/01/19 05/02/19 05/02/19 Unknown 00:06 00:06 WBC RBC Hgb Hct MCV MCH MCHC RDW Lymph % (Auto) [place] % (Auto) Eos % (Auto) Lymph # [place] # Eos # Seg Neutrophils % Seg Neuts % (Manual) Lymphocytes % (Manual) Monocytes % (Manual) Eosinophils % (Manual) Nucleated RBC % Seg Neutrophils # Lymphocytes # (Manual) Monocytes # (Manual) Eosinophils # (Manual) PT INR APTT POC ABG pH ABG pH POC ABG pCO2 POC ABG pO2 ABG pO2 ABG HCO3 ABG O2 Saturation ABG Base Excess ABG Hemoglobin Oxyhemoglobin Sodium Potassium Chloride Carbon Dioxide BUN Creatinine Glucose POC Glucose Uric Acid Calcium Phosphorus 4.90 H Magnesium AST ALT Total Creatine Kinase 226 H CK-MB (CK-2) 5.7 H Troponin T 0.044 H NT-Pro-B Natriuret Pep Total Protein Albumin Triglycerides 182 H HDL Cholesterol 18 L Urine WBC (Auto) Urine Creatinine Urine Total Protein Vancomycin Trough 05/02/19 05/02/19 05/02/19 02:08 04:40 04:41 WBC 17.6 H RBC Hgb Hct MCV MCH 27 L MCHC RDW 17.4 H Lymph % (Auto) 10.2 L [place] % (Auto) 11.0 H Eos % (Auto) Lymph # [place] # 1.9 H Eos # Seg Neutrophils % 78.0 H Seg Neuts % (Manual) Lymphocytes % (Manual) Monocytes % (Manual) Eosinophils % (Manual) Nucleated RBC % Seg Neutrophils # 13.8 H Lymphocytes # (Manual) Monocytes # (Manual) Eosinophils # (Manual) PT INR APTT POC ABG pH ABG pH POC ABG pCO2 46.8 H POC ABG pO2 63 L ABG pO2 ABG HCO3 ABG O2 Saturation ABG Base Excess ABG Hemoglobin Oxyhemoglobin Sodium Potassium Chloride 96.3 L Carbon Dioxide BUN 63 H Creatinine 1.7 H Glucose POC Glucose Uric Acid Calcium Phosphorus Magnesium AST ALT Total Creatine Kinase CK-MB (CK-2) Troponin T NT-Pro-B Natriuret Pep Total Protein Albumin Triglycerides HDL Cholesterol Urine WBC (Auto) Urine Creatinine Urine Total Protein Vancomycin Trough 05/02/19 05/02/19 05/02/19 04:41 04:41 16:05 WBC RBC Hgb Hct MCV MCH MCHC RDW Lymph % (Auto) [place] % (Auto) Eos % (Auto) Lymph # [place] # Eos # Seg Neutrophils % Seg Neuts % (Manual) Lymphocytes % (Manual) Monocytes % (Manual) Eosinophils % (Manual) Nucleated RBC % Seg Neutrophils # Lymphocytes # (Manual) Monocytes # (Manual) Eosinophils # (Manual) PT INR APTT POC ABG pH ABG pH POC ABG pCO2 POC ABG pO2 ABG pO2 66.6 L ABG HCO3 31.9 H ABG O2 Saturation 92.5 L ABG Base Excess 5.8 H ABG Hemoglobin 13.3 L Oxyhemoglobin 90.6 L Sodium Potassium Chloride 97.2 L Carbon Dioxide BUN 61 H Creatinine 1.8 H Glucose POC Glucose Uric Acid Calcium Phosphorus Magnesium AST ALT Total Creatine Kinase CK-MB (CK-2) 5.2 H Troponin T 0.067 H D NT-Pro-B Natriuret Pep Total Protein Albumin Triglycerides HDL Cholesterol Urine WBC (Auto) Urine Creatinine Urine Total Protein Vancomycin Trough 05/02/19 05/03/19 05/03/19 20:39 04:35 05:05 WBC 11.8 H RBC Hgb Hct MCV MCH 27 L MCHC 31 L RDW 17.2 H Lymph % (Auto) [place] % (Auto) Eos % (Auto) Lymph # [place] # Eos # Seg Neutrophils % Seg Neuts % (Manual) Lymphocytes % (Manual) Monocytes % (Manual) Eosinophils % (Manual) Nucleated RBC % Seg Neutrophils # Lymphocytes # (Manual) Monocytes # (Manual) Eosinophils # (Manual) PT INR APTT POC ABG pH ABG pH POC ABG pCO2 53.6 H 54.0 H POC ABG pO2 55 L 63 L ABG pO2 ABG HCO3 ABG O2 Saturation ABG Base Excess ABG Hemoglobin Oxyhemoglobin Sodium Potassium Chloride Carbon Dioxide BUN Creatinine Glucose POC Glucose Uric Acid Calcium Phosphorus Magnesium AST ALT Total Creatine Kinase CK-MB (CK-2) Troponin T NT-Pro-B Natriuret Pep Total Protein Albumin Triglycerides HDL Cholesterol Urine WBC (Auto) Urine Creatinine Urine Total Protein Vancomycin Trough 05/03/19 05/03/19 05/03/19 05:05 10:55 16:48 WBC RBC Hgb Hct MCV MCH MCHC RDW Lymph % (Auto) [place] % (Auto) Eos % (Auto) Lymph # [place] # Eos # Seg Neutrophils % Seg Neuts % (Manual) Lymphocytes % (Manual) Monocytes % (Manual) Eosinophils % (Manual) Nucleated RBC % Seg Neutrophils # Lymphocytes # (Manual) Monocytes # (Manual) Eosinophils # (Manual) PT INR APTT POC ABG pH 7.604 H ABG pH POC ABG pCO2 POC ABG pO2 58 L ABG pO2 ABG HCO3 ABG O2 Saturation ABG Base Excess ABG Hemoglobin Oxyhemoglobin Sodium Potassium Chloride Carbon Dioxide BUN 52 H Creatinine 1.9 H Glucose 103 H POC Glucose Uric Acid Calcium Phosphorus Magnesium AST ALT Total Creatine Kinase CK-MB (CK-2) Troponin T NT-Pro-B Natriuret Pep Total Protein Albumin Triglycerides HDL Cholesterol Urine WBC (Auto) 33.0 H Urine Creatinine Urine Total Protein Vancomycin Trough 05/04/19 05/04/19 05/04/19 04:49 06:50 06:50 WBC 16.0 H RBC Hgb Hct MCV MCH 27 L MCHC 31 L RDW 17.8 H Lymph % (Auto) [place] % (Auto) Eos % (Auto) Lymph # [place] # Eos # Seg Neutrophils % Seg Neuts % (Manual) Lymphocytes % (Manual) Monocytes % (Manual) Eosinophils % (Manual) Nucleated RBC % Seg Neutrophils # Lymphocytes # (Manual) Monocytes # (Manual) Eosinophils # (Manual) PT INR APTT POC ABG pH 7.273 L ABG pH POC ABG pCO2 POC ABG pO2 ABG pO2 ABG HCO3 ABG O2 Saturation ABG Base Excess ABG Hemoglobin Oxyhemoglobin Sodium 148 H Potassium 5.5 H Chloride Carbon Dioxide BUN 53 H Creatinine 3.3 H D Glucose 106 H POC Glucose Uric Acid Calcium 8.3 L Phosphorus Magnesium AST ALT Total Creatine Kinase CK-MB (CK-2) Troponin T NT-Pro-B Natriuret Pep Total Protein Albumin Triglycerides HDL Cholesterol Urine WBC (Auto) Urine Creatinine Urine Total Protein Vancomycin Trough 05/05/19 05/05/19 05/05/19 00:05 04:30 05:00 WBC RBC Hgb Hct MCV MCH MCHC RDW Lymph % (Auto) [place] % (Auto) Eos % (Auto) Lymph # [place] # Eos # Seg Neutrophils % Seg Neuts % (Manual) Lymphocytes % (Manual) Monocytes % (Manual) Eosinophils % (Manual) Nucleated RBC % Seg Neutrophils # Lymphocytes # (Manual) Monocytes # (Manual) Eosinophils # (Manual) PT INR APTT POC ABG pH 7.225 L ABG pH POC ABG pCO2 > 70 H POC ABG pO2 ABG pO2 ABG HCO3 ABG O2 Saturation ABG Base Excess ABG Hemoglobin Oxyhemoglobin Sodium 151 H Potassium 5.1 H Chloride Carbon Dioxide BUN 64 H Creatinine 3.5 H Glucose 117 H POC Glucose 141 H Uric Acid Calcium 7.5 L Phosphorus Magnesium AST 93 H ALT 65 H Total Creatine Kinase CK-MB (CK-2) Troponin T NT-Pro-B Natriuret Pep Total Protein Albumin 2.9 L Triglycerides HDL Cholesterol Urine WBC (Auto) Urine Creatinine Urine Total Protein Vancomycin Trough 05/05/19 05/05/19 05/05/19 05:00 12:02 17:46 WBC 12.0 H RBC Hgb 11.3 L Hct MCV MCH 27 L MCHC 30 L RDW 18.4 H Lymph % (Auto) 7.9 L [place] % (Auto) 10.2 H Eos % (Auto) Lymph # 1.0 L [place] # 1.2 H Eos # Seg Neutrophils % 80.8 H Seg Neuts % (Manual) Lymphocytes % (Manual) Monocytes % (Manual) Eosinophils % (Manual) Nucleated RBC % Seg Neutrophils # 9.7 H Lymphocytes # (Manual) Monocytes # (Manual) Eosinophils # (Manual) PT INR APTT POC ABG pH ABG pH POC ABG pCO2 POC ABG pO2 ABG pO2 ABG HCO3 ABG O2 Saturation ABG Base Excess ABG Hemoglobin Oxyhemoglobin Sodium Potassium Chloride Carbon Dioxide BUN Creatinine Glucose POC Glucose 125 H 112 H Uric Acid Calcium Phosphorus Magnesium AST ALT Total Creatine Kinase CK-MB (CK-2) Troponin T NT-Pro-B Natriuret Pep Total Protein Albumin Triglycerides HDL Cholesterol Urine WBC (Auto) Urine Creatinine Urine Total Protein Vancomycin Trough 05/05/19 05/06/19 05/06/19 23:42 03:58 04:45 WBC 11.4 H RBC Hgb 10.7 L Hct 34.2 L MCV MCH 27 L MCHC 31 L RDW 16.9 H Lymph % (Auto) [place] % (Auto) Eos % (Auto) Lymph # [place] # Eos # Seg Neutrophils % Seg Neuts % (Manual) Lymphocytes % (Manual) Monocytes % (Manual) Eosinophils % (Manual) Nucleated RBC % Seg Neutrophils # Lymphocytes # (Manual) Monocytes # (Manual) Eosinophils # (Manual) PT INR APTT POC ABG pH ABG pH POC ABG pCO2 62.4 H POC ABG pO2 111 H ABG pO2 ABG HCO3 ABG O2 Saturation ABG Base Excess ABG Hemoglobin Oxyhemoglobin Sodium Potassium Chloride Carbon Dioxide BUN Creatinine Glucose POC Glucose 128 H Uric Acid Calcium Phosphorus Magnesium AST ALT Total Creatine Kinase CK-MB (CK-2) Troponin T NT-Pro-B Natriuret Pep Total Protein Albumin Triglycerides HDL Cholesterol Urine WBC (Auto) Urine Creatinine Urine Total Protein Vancomycin Trough 05/06/19 05/06/19 05/06/19 04:45 05:33 12:30 WBC RBC Hgb Hct MCV MCH MCHC RDW Lymph % (Auto) [place] % (Auto) Eos % (Auto) Lymph # [place] # Eos # Seg Neutrophils % Seg Neuts % (Manual) Lymphocytes % (Manual) Monocytes % (Manual) Eosinophils % (Manual) Nucleated RBC % Seg Neutrophils # Lymphocytes # (Manual) Monocytes # (Manual) Eosinophils # (Manual) PT INR APTT POC ABG pH ABG pH POC ABG pCO2 POC ABG pO2 ABG pO2 ABG HCO3 ABG O2 Saturation ABG Base Excess ABG Hemoglobin Oxyhemoglobin Sodium 149 H Potassium Chloride Carbon Dioxide 31 H BUN 67 H Creatinine 3.2 H Glucose 125 H POC Glucose 117 H 116 H Uric Acid Calcium 7.5 L Phosphorus Magnesium AST ALT Total Creatine Kinase CK-MB (CK-2) Troponin T NT-Pro-B Natriuret Pep Total Protein Albumin Triglycerides HDL Cholesterol Urine WBC (Auto) Urine Creatinine Urine Total Protein Vancomycin Trough 05/06/19 05/06/19 05/07/19 18:34 23:16 05:22 WBC RBC Hgb Hct MCV MCH MCHC RDW Lymph % (Auto) [place] % (Auto) Eos % (Auto) Lymph # [place] # Eos # Seg Neutrophils % Seg Neuts % (Manual) Lymphocytes % (Manual) Monocytes % (Manual) Eosinophils % (Manual) Nucleated RBC % Seg Neutrophils # Lymphocytes # (Manual) Monocytes # (Manual) Eosinophils # (Manual) PT INR APTT POC ABG pH ABG pH POC ABG pCO2 POC ABG pO2 ABG pO2 ABG HCO3 ABG O2 Saturation ABG Base Excess ABG Hemoglobin Oxyhemoglobin Sodium Potassium Chloride Carbon Dioxide BUN Creatinine Glucose POC Glucose 128 H 143 H 166 H Uric Acid Calcium Phosphorus Magnesium AST ALT Total Creatine Kinase CK-MB (CK-2) Troponin T NT-Pro-B Natriuret Pep Total Protein Albumin Triglycerides HDL Cholesterol Urine WBC (Auto) Urine Creatinine Urine Total Protein Vancomycin Trough 05/07/19 05/07/19 05/07/19 06:33 07:03 09:35 WBC RBC Hgb Hct MCV MCH MCHC RDW Lymph % (Auto) [place] % (Auto) Eos % (Auto) Lymph # [place] # Eos # Seg Neutrophils % Seg Neuts % (Manual) Lymphocytes % (Manual) Monocytes % (Manual) Eosinophils % (Manual) Nucleated RBC % Seg Neutrophils # Lymphocytes # (Manual) Monocytes # (Manual) Eosinophils # (Manual) PT INR APTT POC ABG pH 7.263 L 7.288 L ABG pH POC ABG pCO2 POC ABG pO2 51 L 56 L ABG pO2 ABG HCO3 ABG O2 Saturation ABG Base Excess ABG Hemoglobin Oxyhemoglobin Sodium Potassium Chloride Carbon Dioxide BUN 76 H Creatinine 3.2 H Glucose 147 H POC Glucose Uric Acid Calcium 7.9 L Phosphorus Magnesium AST ALT Total Creatine Kinase CK-MB (CK-2) Troponin T NT-Pro-B Natriuret Pep Total Protein Albumin Triglycerides HDL Cholesterol Urine WBC (Auto) Urine Creatinine Urine Total Protein Vancomycin Trough 05/07/19 05/07/19 05/07/19 09:35 12:17 13:45 WBC 13.4 H RBC Hgb 11.6 L Hct MCV MCH 27 L MCHC 31 L RDW 17.5 H Lymph % (Auto) [place] % (Auto) Eos % (Auto) Lymph # [place] # Eos # Seg Neutrophils % Seg Neuts % (Manual) Lymphocytes % (Manual) Monocytes % (Manual) Eosinophils % (Manual) Nucleated RBC % Seg Neutrophils # Lymphocytes # (Manual) Monocytes # (Manual) Eosinophils # (Manual) PT INR APTT POC ABG pH ABG pH POC ABG pCO2 POC ABG pO2 ABG pO2 ABG HCO3 ABG O2 Saturation ABG Base Excess ABG Hemoglobin Oxyhemoglobin Sodium Potassium Chloride Carbon Dioxide BUN Creatinine Glucose POC Glucose 130 H Uric Acid 18.0 H Calcium Phosphorus Magnesium AST ALT Total Creatine Kinase CK-MB (CK-2) Troponin T NT-Pro-B Natriuret Pep Total Protein Albumin Triglycerides HDL Cholesterol Urine WBC (Auto) Urine Creatinine Urine Total Protein Vancomycin Trough 05/07/19 05/07/19 05/08/19 17:39 22:40 05:06 WBC RBC Hgb Hct MCV MCH MCHC RDW Lymph % (Auto) [place] % (Auto) Eos % (Auto) Lymph # [place] # Eos # Seg Neutrophils % Seg Neuts % (Manual) Lymphocytes % (Manual) Monocytes % (Manual) Eosinophils % (Manual) Nucleated RBC % Seg Neutrophils # Lymphocytes # (Manual) Monocytes # (Manual) Eosinophils # (Manual) PT INR APTT POC ABG pH ABG pH POC ABG pCO2 POC ABG pO2 ABG pO2 ABG HCO3 ABG O2 Saturation ABG Base Excess ABG Hemoglobin Oxyhemoglobin Sodium Potassium Chloride Carbon Dioxide BUN Creatinine Glucose POC Glucose 116 H 148 H Uric Acid Calcium Phosphorus Magnesium AST ALT Total Creatine Kinase CK-MB (CK-2) Troponin T NT-Pro-B Natriuret Pep Total Protein Albumin Triglycerides HDL Cholesterol Urine WBC (Auto) Urine Creatinine 292.8 H Urine Total Protein 269 H Vancomycin Trough 05/08/19 05/08/19 05/08/19 05:32 11:28 13:48 WBC RBC Hgb Hct MCV MCH MCHC RDW Lymph % (Auto) [place] % (Auto) Eos % (Auto) Lymph # [place] # Eos # Seg Neutrophils % Seg Neuts % (Manual) Lymphocytes % (Manual) Monocytes % (Manual) Eosinophils % (Manual) Nucleated RBC % Seg Neutrophils # Lymphocytes # (Manual) Monocytes # (Manual) Eosinophils # (Manual) PT INR APTT POC ABG pH ABG pH POC ABG pCO2 45.4 H POC ABG pO2 64 L ABG pO2 ABG HCO3 ABG O2 Saturation ABG Base Excess ABG Hemoglobin Oxyhemoglobin Sodium Potassium Chloride Carbon Dioxide BUN 73 H Creatinine 2.7 H Glucose 127 H POC Glucose 107 H Uric Acid Calcium 7.6 L Phosphorus Magnesium AST ALT Total Creatine Kinase CK-MB (CK-2) Troponin T NT-Pro-B Natriuret Pep Total Protein Albumin Triglycerides HDL Cholesterol Urine WBC (Auto) Urine Creatinine Urine Total Protein Vancomycin Trough 05/08/19 05/09/19 05/09/19 17:48 04:50 04:53 WBC RBC 3.07 L Hgb 8.5 L D Hct 29.3 L D MCV 96 H MCH MCHC 29 L RDW 18.1 H Lymph % (Auto) [place] % (Auto) Eos % (Auto) Lymph # [place] # Eos # Seg Neutrophils % Seg Neuts % (Manual) Lymphocytes % (Manual) Monocytes % (Manual) Eosinophils % (Manual) Nucleated RBC % Seg Neutrophils # Lymphocytes # (Manual) Monocytes # (Manual) Eosinophils # (Manual) PT INR APTT POC ABG pH 7.316 L ABG pH POC ABG pCO2 66.0 H POC ABG pO2 69 L ABG pO2 ABG HCO3 ABG O2 Saturation ABG Base Excess ABG Hemoglobin Oxyhemoglobin Sodium Potassium Chloride Carbon Dioxide BUN Creatinine Glucose POC Glucose 155 H Uric Acid Calcium Phosphorus Magnesium AST ALT Total Creatine Kinase CK-MB (CK-2) Troponin T NT-Pro-B Natriuret Pep Total Protein Albumin Triglycerides HDL Cholesterol Urine WBC (Auto) Urine Creatinine Urine Total Protein Vancomycin Trough 05/09/19 05/09/19 05/09/19 05:46 07:24 12:10 WBC RBC Hgb Hct MCV MCH MCHC RDW Lymph % (Auto) [place] % (Auto) Eos % (Auto) Lymph # [place] # Eos # Seg Neutrophils % Seg Neuts % (Manual) Lymphocytes % (Manual) Monocytes % (Manual) Eosinophils % (Manual) Nucleated RBC % Seg Neutrophils # Lymphocytes # (Manual) Monocytes # (Manual) Eosinophils # (Manual) PT INR APTT POC ABG pH ABG pH POC ABG pCO2 POC ABG pO2 ABG pO2 ABG HCO3 ABG O2 Saturation ABG Base Excess ABG Hemoglobin Oxyhemoglobin Sodium Potassium Chloride Carbon Dioxide BUN 73 H Creatinine 2.4 H Glucose 153 H POC Glucose 123 H 148 H Uric Acid Calcium 8.2 L Phosphorus Magnesium AST 45 H ALT Total Creatine Kinase CK-MB (CK-2) Troponin T NT-Pro-B Natriuret Pep Total Protein 6.0 L Albumin 1.9 L Triglycerides HDL Cholesterol Urine WBC (Auto) Urine Creatinine Urine Total Protein Vancomycin Trough 05/09/19 05/09/19 05/10/19 18:23 23:26 04:52 WBC RBC Hgb Hct MCV MCH MCHC RDW Lymph % (Auto) [place] % (Auto) Eos % (Auto) Lymph # [place] # Eos # Seg Neutrophils % Seg Neuts % (Manual) Lymphocytes % (Manual) Monocytes % (Manual) Eosinophils % (Manual) Nucleated RBC % Seg Neutrophils # Lymphocytes # (Manual) Monocytes # (Manual) Eosinophils # (Manual) PT INR APTT POC ABG pH 7.305 L ABG pH POC ABG pCO2 62.6 H POC ABG pO2 ABG pO2 ABG HCO3 ABG O2 Saturation ABG Base Excess ABG Hemoglobin Oxyhemoglobin Sodium Potassium Chloride Carbon Dioxide BUN Creatinine Glucose POC Glucose 147 H 121 H Uric Acid Calcium Phosphorus Magnesium AST ALT Total Creatine Kinase CK-MB (CK-2) Troponin T NT-Pro-B Natriuret Pep Total Protein Albumin Triglycerides HDL Cholesterol Urine WBC (Auto) Urine Creatinine Urine Total Protein Vancomycin Trough 05/10/19 05/10/19 05/10/19 05:00 05:00 05:50 WBC RBC Hgb 10.3 L Hct 33.7 L MCV MCH 27 L MCHC 31 L RDW 17.0 H Lymph % (Auto) [place] % (Auto) Eos % (Auto) Lymph # [place] # Eos # Seg Neutrophils % Seg Neuts % (Manual) Lymphocytes % (Manual) Monocytes % (Manual) Eosinophils % (Manual) Nucleated RBC % Seg Neutrophils # Lymphocytes # (Manual) Monocytes # (Manual) Eosinophils # (Manual) PT INR APTT POC ABG pH ABG pH POC ABG pCO2 POC ABG pO2 ABG pO2 ABG HCO3 ABG O2 Saturation ABG Base Excess ABG Hemoglobin Oxyhemoglobin Sodium 147 H Potassium Chloride Carbon Dioxide BUN 70 H Creatinine 2.6 H Glucose 155 H POC Glucose 158 H Uric Acid Calcium 8.2 L Phosphorus Magnesium AST ALT Total Creatine Kinase CK-MB (CK-2) Troponin T NT-Pro-B Natriuret Pep Total Protein 6.1 L Albumin 2.5 L Triglycerides HDL Cholesterol Urine WBC (Auto) Urine Creatinine Urine Total Protein Vancomycin Trough 05/10/19 05/11/19 05/11/19 13:14 07:26 11:40 WBC RBC Hgb Hct MCV MCH MCHC RDW Lymph % (Auto) [place] % (Auto) Eos % (Auto) Lymph # [place] # Eos # Seg Neutrophils % Seg Neuts % (Manual) Lymphocytes % (Manual) Monocytes % (Manual) Eosinophils % (Manual) Nucleated RBC % Seg Neutrophils # Lymphocytes # (Manual) Monocytes # (Manual) Eosinophils # (Manual) PT INR APTT POC ABG pH ABG pH POC ABG pCO2 48.0 H POC ABG pO2 58 L ABG pO2 ABG HCO3 ABG O2 Saturation ABG Base Excess ABG Hemoglobin Oxyhemoglobin Sodium 147 H Potassium Chloride 107.2 H Carbon Dioxide BUN 67 H Creatinine 2.6 H Glucose 121 H POC Glucose 159 H Uric Acid Calcium Phosphorus Magnesium AST ALT Total Creatine Kinase CK-MB (CK-2) Troponin T NT-Pro-B Natriuret Pep Total Protein Albumin Triglycerides HDL Cholesterol Urine WBC (Auto) Urine Creatinine Urine Total Protein Vancomycin Trough 05/11/19 05/11/19 05/12/19 18:13 23:46 04:40 WBC RBC Hgb Hct MCV MCH MCHC RDW Lymph % (Auto) [place] % (Auto) Eos % (Auto) Lymph # [place] # Eos # Seg Neutrophils % Seg Neuts % (Manual) Lymphocytes % (Manual) Monocytes % (Manual) Eosinophils % (Manual) Nucleated RBC % Seg Neutrophils # Lymphocytes # (Manual) Monocytes # (Manual) Eosinophils # (Manual) PT INR APTT POC ABG pH ABG pH 7.264 L POC ABG pCO2 POC ABG pO2 ABG pO2 66.8 L ABG HCO3 31.0 H ABG O2 Saturation 92.0 L ABG Base Excess ABG Hemoglobin 10.3 L Oxyhemoglobin 90.1 L Sodium Potassium Chloride Carbon Dioxide BUN Creatinine Glucose POC Glucose 120 H 121 H Uric Acid Calcium Phosphorus Magnesium AST ALT Total Creatine Kinase CK-MB (CK-2) Troponin T NT-Pro-B Natriuret Pep Total Protein Albumin Triglycerides HDL Cholesterol Urine WBC (Auto) Urine Creatinine Urine Total Protein Vancomycin Trough 05/12/19 05/12/19 05/12/19 04:45 04:45 11:14 WBC RBC Hgb 10.2 L Hct 32.4 L MCV MCH MCHC 31 L RDW 17.2 H Lymph % (Auto) [place] % (Auto) Eos % (Auto) Lymph # [place] # Eos # Seg Neutrophils % Seg Neuts % (Manual) Lymphocytes % (Manual) Monocytes % (Manual) Eosinophils % (Manual) Nucleated RBC % Seg Neutrophils # Lymphocytes # (Manual) Monocytes # (Manual) Eosinophils # (Manual) PT INR APTT POC ABG pH 7.284 L ABG pH POC ABG pCO2 67.8 H POC ABG pO2 ABG pO2 ABG HCO3 ABG O2 Saturation ABG Base Excess ABG Hemoglobin Oxyhemoglobin Sodium Potassium Chloride Carbon Dioxide BUN 63 H Creatinine 2.4 H Glucose 110 H POC Glucose Uric Acid Calcium Phosphorus Magnesium AST ALT Total Creatine Kinase CK-MB (CK-2) Troponin T NT-Pro-B Natriuret Pep Total Protein Albumin Triglycerides HDL Cholesterol Urine WBC (Auto) Urine Creatinine Urine Total Protein Vancomycin Trough 05/12/19 05/12/19 05/13/19 11:44 23:11 04:30 WBC RBC Hgb Hct MCV MCH MCHC RDW Lymph % (Auto) [place] % (Auto) Eos % (Auto) Lymph # [place] # Eos # Seg Neutrophils % Seg Neuts % (Manual) Lymphocytes % (Manual) Monocytes % (Manual) Eosinophils % (Manual) Nucleated RBC % Seg Neutrophils # Lymphocytes # (Manual) Monocytes # (Manual) Eosinophils # (Manual) PT INR APTT POC ABG pH ABG pH 7.288 L POC ABG pCO2 POC ABG pO2 ABG pO2 109.7 H ABG HCO3 30.9 H ABG O2 Saturation ABG Base Excess 3.2 H ABG Hemoglobin 9.6 L Oxyhemoglobin Sodium Potassium Chloride Carbon Dioxide BUN Creatinine Glucose POC Glucose 126 H 147 H Uric Acid Calcium Phosphorus Magnesium AST ALT Total Creatine Kinase CK-MB (CK-2) Troponin T NT-Pro-B Natriuret Pep Total Protein Albumin Triglycerides HDL Cholesterol Urine WBC (Auto) Urine Creatinine Urine Total Protein Vancomycin Trough 05/13/19 05/13/19 05/14/19 06:27 11:58 04:00 WBC RBC 3.16 L Hgb 9.3 L Hct 27.9 L MCV MCH MCHC RDW 17.1 H Lymph % (Auto) [place] % (Auto) Eos % (Auto) Lymph # [place] # Eos # Seg Neutrophils % Seg Neuts % (Manual) Lymphocytes % (Manual) Monocytes % (Manual) Eosinophils % (Manual) Nucleated RBC % Seg Neutrophils # Lymphocytes # (Manual) Monocytes # (Manual) Eosinophils # (Manual) PT INR APTT POC ABG pH ABG pH POC ABG pCO2 POC ABG pO2 ABG pO2 ABG HCO3 ABG O2 Saturation ABG Base Excess ABG Hemoglobin Oxyhemoglobin Sodium Potassium Chloride Carbon Dioxide BUN Creatinine Glucose POC Glucose 113 H 130 H Uric Acid Calcium Phosphorus Magnesium AST ALT Total Creatine Kinase CK-MB (CK-2) Troponin T NT-Pro-B Natriuret Pep Total Protein Albumin Triglycerides HDL Cholesterol Urine WBC (Auto) Urine Creatinine Urine Total Protein Vancomycin Trough 05/14/19 05/14/19 05/14/19 04:00 04:34 05:32 WBC RBC Hgb Hct MCV MCH MCHC RDW Lymph % (Auto) [place] % (Auto) Eos % (Auto) Lymph # [place] # Eos # Seg Neutrophils % Seg Neuts % (Manual) Lymphocytes % (Manual) Monocytes % (Manual) Eosinophils % (Manual) Nucleated RBC % Seg Neutrophils # Lymphocytes # (Manual) Monocytes # (Manual) Eosinophils # (Manual) PT INR APTT POC ABG pH 7.328 L ABG pH POC ABG pCO2 61.7 H POC ABG pO2 ABG pO2 ABG HCO3 ABG O2 Saturation ABG Base Excess ABG Hemoglobin Oxyhemoglobin Sodium 135 L D Potassium Chloride Carbon Dioxide BUN 57 H Creatinine 2.2 H Glucose 115 H POC Glucose 115 H Uric Acid Calcium 8.1 L Phosphorus Magnesium AST ALT Total Creatine Kinase CK-MB (CK-2) Troponin T NT-Pro-B Natriuret Pep Total Protein Albumin Triglycerides HDL Cholesterol Urine WBC (Auto) Urine Creatinine Urine Total Protein Vancomycin Trough 05/14/19 05/15/19 05/15/19 12:11 05:10 05:24 WBC RBC Hgb Hct MCV MCH MCHC RDW Lymph % (Auto) [place] % (Auto) Eos % (Auto) Lymph # [place] # Eos # Seg Neutrophils % Seg Neuts % (Manual) Lymphocytes % (Manual) Monocytes % (Manual) Eosinophils % (Manual) Nucleated RBC % Seg Neutrophils # Lymphocytes # (Manual) Monocytes # (Manual) Eosinophils # (Manual) PT INR APTT POC ABG pH ABG pH 7.342 L POC ABG pCO2 POC ABG pO2 ABG pO2 79.1 L ABG HCO3 28.2 H ABG O2 Saturation ABG Base Excess ABG Hemoglobin 7.0 L Oxyhemoglobin 94.4 L Sodium Potassium Chloride Carbon Dioxide BUN Creatinine Glucose POC Glucose 110 H 116 H Uric Acid Calcium Phosphorus Magnesium AST ALT Total Creatine Kinase CK-MB (CK-2) Troponin T NT-Pro-B Natriuret Pep Total Protein Albumin Triglycerides HDL Cholesterol Urine WBC (Auto) Urine Creatinine Urine Total Protein Vancomycin Trough 05/15/19 05/15/19 05/16/19 09:00 18:12 04:50 WBC RBC Hgb Hct MCV MCH MCHC RDW Lymph % (Auto) [place] % (Auto) Eos % (Auto) Lymph # [place] # Eos # Seg Neutrophils % Seg Neuts % (Manual) Lymphocytes % (Manual) Monocytes % (Manual) Eosinophils % (Manual) Nucleated RBC % Seg Neutrophils # Lymphocytes # (Manual) Monocytes # (Manual) Eosinophils # (Manual) PT INR APTT POC ABG pH ABG pH 7.250 L POC ABG pCO2 POC ABG pO2 ABG pO2 76.4 L ABG HCO3 ABG O2 Saturation 94.6 L ABG Base Excess -3.1 L ABG Hemoglobin 9.7 L Oxyhemoglobin 92.4 L Sodium Potassium Chloride Carbon Dioxide BUN Creatinine Glucose POC Glucose 110 H Uric Acid Calcium Phosphorus Magnesium AST ALT Total Creatine Kinase CK-MB (CK-2) Troponin T NT-Pro-B Natriuret Pep Total Protein Albumin Triglycerides HDL Cholesterol Urine WBC (Auto) Urine Creatinine Urine Total Protein Vancomycin Trough 20.5 H 05/16/19 05/16/19 05/17/19 05:50 05:50 04:20 WBC RBC 3.36 L 3.44 L Hgb 9.4 L 9.3 L Hct 29.1 L 29.7 L MCV MCH 27 L MCHC 31 L RDW 17.6 H 17.6 H Lymph % (Auto) [place] % (Auto) Eos % (Auto) Lymph # [place] # Eos # Seg Neutrophils % Seg Neuts % (Manual) 77.0 H Lymphocytes % (Manual) 5.0 L Monocytes % (Manual) Eosinophils % (Manual) 10.0 H Nucleated RBC % Seg Neutrophils # Lymphocytes # (Manual) 0.5 L Monocytes # (Manual) Eosinophils # (Manual) 0.9 H PT INR APTT POC ABG pH ABG pH POC ABG pCO2 POC ABG pO2 ABG pO2 ABG HCO3 ABG O2 Saturation ABG Base Excess ABG Hemoglobin Oxyhemoglobin Sodium Potassium Chloride Carbon Dioxide BUN 83 H Creatinine 4.4 H D Glucose 118 H POC Glucose Uric Acid Calcium Phosphorus Magnesium AST ALT Total Creatine Kinase CK-MB (CK-2) Troponin T NT-Pro-B Natriuret Pep Total Protein Albumin Triglycerides HDL Cholesterol Urine WBC (Auto) Urine Creatinine Urine Total Protein Vancomycin Trough 05/17/19 05/17/19 05/18/19 04:30 Unknown 01:50 WBC RBC 3.49 L Hgb 9.4 L Hct 30.0 L MCV MCH 27 L MCHC 31 L RDW 17.8 H Lymph % (Auto) 7.9 L [place] % (Auto) 15.4 H Eos % (Auto) 6.3 H Lymph # 0.7 L [place] # 1.4 H Eos # 0.6 H Seg Neutrophils % 70.2 H Seg Neuts % (Manual) Lymphocytes % (Manual) Monocytes % (Manual) Eosinophils % (Manual) Nucleated RBC % Seg Neutrophils # Lymphocytes # (Manual) Monocytes # (Manual) Eosinophils # (Manual) PT INR APTT POC ABG pH ABG pH 7.272 L POC ABG pCO2 POC ABG pO2 ABG pO2 75.7 L ABG HCO3 ABG O2 Saturation 93.8 L ABG Base Excess -3.0 L ABG Hemoglobin 7.8 L Oxyhemoglobin 91.6 L Sodium Potassium 5.2 H Chloride Carbon Dioxide BUN 96 H Creatinine 5.7 H Glucose 112 H POC Glucose Uric Acid Calcium Phosphorus Magnesium AST ALT Total Creatine Kinase CK-MB (CK-2) Troponin T NT-Pro-B Natriuret Pep Total Protein Albumin Triglycerides 173 H HDL Cholesterol Urine WBC (Auto) Urine Creatinine Urine Total Protein Vancomycin Trough 05/18/19 05/18/19 05/18/19 01:50 04:41 05:24 WBC RBC Hgb Hct MCV MCH MCHC RDW Lymph % (Auto) [place] % (Auto) Eos % (Auto) Lymph # [place] # Eos # Seg Neutrophils % Seg Neuts % (Manual) Lymphocytes % (Manual) Monocytes % (Manual) Eosinophils % (Manual) Nucleated RBC % Seg Neutrophils # Lymphocytes # (Manual) Monocytes # (Manual) Eosinophils # (Manual) PT INR APTT POC ABG pH 7.260 L ABG pH POC ABG pCO2 54.9 H POC ABG pO2 ABG pO2 ABG HCO3 ABG O2 Saturation ABG Base Excess ABG Hemoglobin Oxyhemoglobin Sodium Potassium 5.6 H Chloride Carbon Dioxide BUN 104 H Creatinine 6.6 H Glucose 107 H POC Glucose 106 H Uric Acid Calcium Phosphorus Magnesium AST ALT Total Creatine Kinase CK-MB (CK-2) Troponin T NT-Pro-B Natriuret Pep Total Protein Albumin Triglycerides HDL Cholesterol Urine WBC (Auto) Urine Creatinine Urine Total Protein Vancomycin Trough 05/18/19 05/18/19 05/19/19 11:34 23:26 04:06 WBC RBC 3.22 L Hgb 8.8 L Hct 27.3 L MCV MCH 27 L MCHC RDW 17.5 H Lymph % (Auto) [place] % (Auto) Eos % (Auto) Lymph # [place] # Eos # Seg Neutrophils % Seg Neuts % (Manual) 74.0 H Lymphocytes % (Manual) 4.0 L Monocytes % (Manual) 11.0 H Eosinophils % (Manual) 7.0 H Nucleated RBC % 1.0 H Seg Neutrophils # Lymphocytes # (Manual) 0.3 L Monocytes # (Manual) 0.9 H Eosinophils # (Manual) 0.6 H PT INR APTT POC ABG pH ABG pH POC ABG pCO2 POC ABG pO2 ABG pO2 ABG HCO3 ABG O2 Saturation ABG Base Excess ABG Hemoglobin Oxyhemoglobin Sodium Potassium Chloride Carbon Dioxide BUN Creatinine Glucose POC Glucose 152 H 112 H Uric Acid Calcium Phosphorus Magnesium AST ALT Total Creatine Kinase CK-MB (CK-2) Troponin T NT-Pro-B Natriuret Pep Total Protein Albumin Triglycerides HDL Cholesterol Urine WBC (Auto) Urine Creatinine Urine Total Protein Vancomycin Trough 05/19/19 05/19/19 05/20/19 04:06 06:00 04:00 WBC RBC 3.40 L Hgb 9.2 L Hct 28.6 L MCV MCH 27 L MCHC RDW 17.6 H Lymph % (Auto) [place] % (Auto) Eos % (Auto) Lymph # [place] # Eos # Seg Neutrophils % Seg Neuts % (Manual) Lymphocytes % (Manual) 11.0 L Monocytes % (Manual) Eosinophils % (Manual) 14.0 H Nucleated RBC % Seg Neutrophils # Lymphocytes # (Manual) 1.1 L Monocytes # (Manual) Eosinophils # (Manual) 1.4 H PT INR APTT POC ABG pH ABG pH 7.315 L POC ABG pCO2 POC ABG pO2 ABG pO2 ABG HCO3 ABG O2 Saturation ABG Base Excess ABG Hemoglobin 6.7 L Oxyhemoglobin 94.1 L Sodium Potassium 5.2 H Chloride Carbon Dioxide 21 L BUN 110 H Creatinine 7.2 H Glucose POC Glucose Uric Acid Calcium 8.3 L Phosphorus Magnesium AST ALT Total Creatine Kinase CK-MB (CK-2) Troponin T NT-Pro-B Natriuret Pep Total Protein Albumin Triglycerides HDL Cholesterol Urine WBC (Auto) Urine Creatinine Urine Total Protein Vancomycin Trough 05/20/19 05/20/19 05/20/19 04:00 05:48 12:00 WBC RBC Hgb Hct MCV MCH MCHC RDW Lymph % (Auto) [place] % (Auto) Eos % (Auto) Lymph # [place] # Eos # Seg Neutrophils % Seg Neuts % (Manual) Lymphocytes % (Manual) Monocytes % (Manual) Eosinophils % (Manual) Nucleated RBC % Seg Neutrophils # Lymphocytes # (Manual) Monocytes # (Manual) Eosinophils # (Manual) PT INR APTT POC ABG pH ABG pH 7.281 L POC ABG pCO2 POC ABG pO2 ABG pO2 78.7 L ABG HCO3 ABG O2 Saturation 94.5 L ABG Base Excess -3.0 L ABG Hemoglobin 9.9 L Oxyhemoglobin 92.5 L Sodium 136 L Potassium 5.7 H Chloride 96.3 L Carbon Dioxide BUN 125 H Creatinine 8.3 H Glucose 106 H POC Glucose Uric Acid Calcium Phosphorus Magnesium AST ALT Total Creatine Kinase CK-MB (CK-2) Troponin T NT-Pro-B Natriuret Pep Total Protein Albumin Triglycerides HDL Cholesterol Urine WBC (Auto) 26.0 H Urine Creatinine Urine Total Protein Vancomycin Trough 05/21/19 05/21/19 05/21/19 04:33 05:20 Unknown WBC RBC 3.38 L Hgb 9.1 L Hct 28.5 L MCV MCH 27 L MCHC RDW 17.4 H Lymph % (Auto) [place] % (Auto) Eos % (Auto) Lymph # [place] # Eos # Seg Neutrophils % Seg Neuts % (Manual) 71.0 H Lymphocytes % (Manual) 1.0 L Monocytes % (Manual) 11.0 H Eosinophils % (Manual) 6.0 H Nucleated RBC % Seg Neutrophils # Lymphocytes # (Manual) 0.1 L Monocytes # (Manual) 1.0 H Eosinophils # (Manual) 0.6 H PT INR APTT POC ABG pH 7.315 L ABG pH POC ABG pCO2 57.8 H POC ABG pO2 68 L ABG pO2 ABG HCO3 ABG O2 Saturation ABG Base Excess ABG Hemoglobin Oxyhemoglobin Sodium Potassium Chloride 96.3 L Carbon Dioxide BUN 102 H Creatinine 7.0 H Glucose 103 H POC Glucose Uric Acid Calcium Phosphorus Magnesium AST ALT Total Creatine Kinase CK-MB (CK-2) Troponin T NT-Pro-B Natriuret Pep Total Protein Albumin Triglycerides HDL Cholesterol Urine WBC (Auto) Urine Creatinine Urine Total Protein Vancomycin Trough 05/22/19 05/22/19 05/22/19 03:54 06:25 06:25 WBC RBC 3.22 L Hgb 8.6 L Hct 27.0 L MCV MCH 27 L MCHC RDW 17.5 H Lymph % (Auto) [place] % (Auto) 16.2 H Eos % (Auto) 10.8 H Lymph # [place] # 1.3 H Eos # 0.9 H Seg Neutrophils % Seg Neuts % (Manual) Lymphocytes % (Manual) 10.0 L Monocytes % (Manual) 13.0 H Eosinophils % (Manual) 8.0 H Nucleated RBC % Seg Neutrophils # Lymphocytes # (Manual) 0.9 L Monocytes # (Manual) 1.1 H Eosinophils # (Manual) 0.7 H PT INR APTT POC ABG pH 7.313 L ABG pH POC ABG pCO2 55.0 H POC ABG pO2 ABG pO2 ABG HCO3 ABG O2 Saturation ABG Base Excess ABG Hemoglobin Oxyhemoglobin Sodium 135 L Potassium Chloride 94.3 L Carbon Dioxide BUN 117 H Creatinine 7.8 H Glucose POC Glucose Uric Acid Calcium 8.2 L Phosphorus Magnesium AST ALT Total Creatine Kinase CK-MB (CK-2) Troponin T NT-Pro-B Natriuret Pep Total Protein Albumin Triglycerides HDL Cholesterol Urine WBC (Auto) Urine Creatinine Urine Total Protein Vancomycin Trough 05/23/19 05/24/19 05/24/19 05:21 05:00 05:00 WBC RBC 3.18 L Hgb 8.5 L Hct 26.7 L MCV MCH 27 L MCHC RDW 17.9 H Lymph % (Auto) [place] % (Auto) Eos % (Auto) Lymph # [place] # Eos # Seg Neutrophils % Seg Neuts % (Manual) Lymphocytes % (Manual) Monocytes % (Manual) Eosinophils % (Manual) Nucleated RBC % Seg Neutrophils # Lymphocytes # (Manual) Monocytes # (Manual) Eosinophils # (Manual) PT INR APTT POC ABG pH ABG pH POC ABG pCO2 49.7 H POC ABG pO2 73 L ABG pO2 ABG HCO3 ABG O2 Saturation ABG Base Excess ABG Hemoglobin Oxyhemoglobin Sodium Potassium Chloride 95.7 L Carbon Dioxide BUN 97 H Creatinine 6.5 H Glucose POC Glucose Uric Acid Calcium 8.0 L Phosphorus Magnesium AST ALT Total Creatine Kinase CK-MB (CK-2) Troponin T NT-Pro-B Natriuret Pep Total Protein Albumin Triglycerides HDL Cholesterol Urine WBC (Auto) Urine Creatinine Urine Total Protein Vancomycin Trough 05/24/19 05/25/19 06:17 04:22 WBC RBC Hgb Hct MCV MCH MCHC RDW Lymph % (Auto) [place] % (Auto) Eos % (Auto) Lymph # [place] # Eos # Seg Neutrophils % Seg Neuts % (Manual) Lymphocytes % (Manual) Monocytes % (Manual) Eosinophils % (Manual) Nucleated RBC % Seg Neutrophils # Lymphocytes # (Manual) Monocytes # (Manual) Eosinophils # (Manual) PT INR APTT POC ABG pH 7.330 L 7.313 L ABG pH POC ABG pCO2 52.5 H 51.1 H POC ABG pO2 77 L ABG pO2 ABG HCO3 ABG O2 Saturation ABG Base Excess ABG Hemoglobin Oxyhemoglobin Sodium Potassium Chloride Carbon Dioxide BUN Creatinine Glucose POC Glucose Uric Acid Calcium Phosphorus Magnesium AST ALT Total Creatine Kinase CK-MB (CK-2) Troponin T NT-Pro-B Natriuret Pep Total Protein Albumin Triglycerides HDL Cholesterol Urine WBC (Auto) Urine Creatinine Urine Total Protein Vancomycin Trough
[2019-05-25] MEDS: FLUCONAZOLE 200 MG 200 MG/100 ML BAG IV SCH (14:17)
--- NOTE | 2019-05-25 14:50 | Progress Note ---
Assessment and Plan Assessment and plan: Patient is a 34-year-old man who is morbidly obese (575 lbs) with unknown medical history who presented to [facility] ED on 05/01/2019 (I started seeing patient for the first time on 05/20/19, Day 19) with SOB. He was placed on BIPAP and failed. He had a cardiac arrest in ED and was Intubated in ED. On 05/12/19- ETT exchanged due to hypoxia. In the chart there is a report that he has undiagnosis LANDON and using someone else CPAP. 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 Acute hypoxic and hypercapenic respiratory failure on vent >96hrs Status post intubation, continue sedation, consulted pulmonary And input noted still on high PEEP, making Tracheostomy difficult to attempt. Mathematics Technician managing. Obesity Hypoventilation syndrome Patient previously on LANDON Management at home but per discussion with family, was non complaint Sepsis- not present on admission -On abx, ID following. LP when able ?Meningitis considering recurrent fever. Doubt, but ID following Acylovir stopped ?seizure activity -Meninigitis prophy -Neurology consult -EEG-negative Acute CHF, new onset, diastolic Diurese with IV lasix held, on HD now monitor I/O, daily weights Cardiology following. Added beta-jenny, no TIM inhibitor secondary to renal insufficiency Hypertension malignant Start antihypertensive, monitor blood pressure IV hydralazine as needed for further control Acute kidney injury due to ATN ?Vancomycin toxicity, Held. Monitor Nephrology following and input noted. Han for strict I/Os HD per nephrology Hyperkalemia-Kaylexate Passive congestive hepatic syndrome -LFT elevated but trending down -Noted Gallbladder sludge DVT prophylaxis with Lovenox Extreme obesity, bmi 70.1 Full code status. Prognosis guarded +han removed +ETT +NGT +Fentanyl; and Rosemarie PADILLA PIcc right Vas Cath IJ placed on Yang off levaphed since 05/20/2019 receiving HD drool, with increased secretion, scopolamine patch helped ?trach consideration, intubated since admission 05/01/19==>still too high PEEP for trach, ?PEG consideration Still febrile since 05/03/19, Patient unable to fit in scanner so CT of head sinus, chest will not happen. ID has placed back on renally adjusted Vanc. he has grown out jarad from urine and a tracheal aspirate I called his mother Magalis Jay again at [phone], her answered the phone but he is not [place] father. She came to the phone. She appeared to be crying, she says she has the FLU. no family present History Interval history: Patient was seen and examined. Follow-up on current diagnosis of Respiratory failure. Overnight uneventful. Imaging, nursing note, chart, labs and old chart reviewed. Still intubated and sedated Hospitalist Physical - Physical exam Narrative exam: Gen: critically ill, bmi 70.1 sedated HEENT: NCAT, OP ETT in place Neck: supple, no adenopathy, no thyromegaly, no JVD CVS/Heart: tachycardiac, normal S1S2, pulses present bilaterally Chest/Lungs: tachypneic, Symmetrical chest expansion, good air entry bilaterally GI/Abdomen: soft, NTND, good bowel sounds, no guarding or rebound : scrotal edema, unable to see his penis Extermity/Skin: good skin turgor MSK: sedated Neuro: sedated Psych: sedated - Constitutional Vitals: Temp Pulse Resp BP Pulse Ox 100.8 F H 87 13 112/45 97 05/25/19 13:40 05/25/19 13:56 05/25/19 13:40 05/25/19 13:56 05/25/19 13:40 General appearance: Present: no acute distress Results - Labs CBC & Chem 7: 05/24/19 05:00 05/24/19 05:00 Labs: Laboratory Last Values WBC 6.9 K/mm3 (4.5-11.0) 05/24/19 05:00 RBC 3.18 M/mm3 (3.65-5.03) L 05/24/19 05:00 Hgb 8.5 gm/dl (11.8-15.2) L 05/24/19 05:00 Hct 26.7 % (35.5-45.6) L 05/24/19 05:00 MCV 84 fl (84-94) 05/24/19 05:00 MCH 27 pg (28-32) L 05/24/19 05:00 MCHC 32 % (32-34) 05/24/19 05:00 RDW 17.9 % (13.2-15.2) H 05/24/19 05:00 Plt Count 289 K/mm3 (140-440) 05/24/19 05:00 Lymph % (Auto) 7.9 % (13.4-35.0) L 05/18/19 01:50 [place] % (Auto) 16.2 % (0.0-7.3) H 05/22/19 06:25 Eos % (Auto) 10.8 % (0.0-4.3) H 05/22/19 06:25 Baso % (Auto) 0.2 % (0.0-1.8) 05/18/19 01:50 Lymph # 0.7 K/mm3 (1.2-5.4) L 05/18/19 01:50 [place] # 1.3 K/mm3 (0.0-0.8) H 05/22/19 06:25 Eos # 0.9 K/mm3 (0.0-0.4) H 05/22/19 06:25 Baso # 0.0 K/mm3 (0.0-0.1) 05/22/19 06:25 Add Manual Diff Complete 05/22/19 06:25 Total Counted 100 05/22/19 06:25 Seg Neutrophils % 65.5 % (40.0-70.0) 05/22/19 06:25 Seg Neuts % (Manual) 65.0 % (40.0-70.0) 05/22/19 06:25 Band Neutrophils % 3.0 % 05/22/19 06:25 Lymphocytes % (Manual) 10.0 % (13.4-35.0) L 05/22/19 06:25 Reactive Lymphs % (Man) 0 % 05/22/19 06:25 Monocytes % (Manual) 13.0 % (0.0-7.3) H 05/22/19 06:25 Eosinophils % (Manual) 8.0 % (0.0-4.3) H 05/22/19 06:25 Basophils % (Manual) 0 % (0.0-1.8) 05/22/19 06:25 Metamyelocytes % 1.0 % 05/22/19 06:25 Myelocytes % 0 % 05/22/19 06:25 Promyelocytes % 0 % 05/22/19 06:25 Blast Cells % 0 % 05/22/19 06:25 Nucleated RBC % Not Reportable 05/22/19 06:25 Seg Neutrophils # 5.3 K/mm3 (1.8-7.7) 05/22/19 06:25 Seg Neutrophils # Man 5.6 K/mm3 (1.8-7.7) 05/22/19 06:25 Band Neutrophils # 0.3 K/mm3 05/22/19 06:25 Lymphocytes # (Manual) 0.9 K/mm3 (1.2-5.4) L 05/22/19 06:25 Abs React Lymphs (Man) 0.0 K/mm3 05/22/19 06:25 Monocytes # (Manual) 1.1 K/mm3 (0.0-0.8) H 05/22/19 06:25 Eosinophils # (Manual) 0.7 K/mm3 (0.0-0.4) H 05/22/19 06:25 Basophils # (Manual) 0.0 K/mm3 (0.0-0.1) 05/22/19 06:25 Metamyelocytes # 0.1 K/mm3 05/22/19 06:25 Myelocytes # 0.0 K/mm3 05/22/19 06:25 Promyelocytes # 0.0 K/mm3 05/22/19 06:25 Blast Cells # 0.0 K/mm3 05/22/19 06:25 WBC Morphology Not Reportable 05/22/19 06:25 Hypersegmented Neuts Not Reportable 05/22/19 06:25 Hyposegmented Neuts Not Reportable 05/22/19 06:25 Hypogranular Neuts Not Reportable 05/22/19 06:25 Smudge Cells Not Reportable 05/22/19 06:25 Toxic Granulation Not Reportable 05/22/19 06:25 Toxic Vacuolation Not Reportable 05/22/19 06:25 Dohle Bodies Not Reportable 05/22/19 06:25 Pelger-Huet Anomaly Not Reportable 05/22/19 06:25 Renea Rods Not Reportable 05/22/19 06:25 Platelet Estimate Consistent w auto 05/22/19 06:25 Clumped Platelets Not Reportable 05/22/19 06:25 Plt Clumps, EDTA Not Reportable 05/22/19 06:25 Large Platelets Not Reportable 05/22/19 06:25 Giant Platelets Not Reportable 05/22/19 06:25 Platelet Satelliting Not Reportable 05/22/19 06:25 Plt Morphology Comment Not Reportable 05/22/19 06:25 RBC Morphology Not Reportable 05/22/19 06:25 Dimorphic RBCs Not Reportable 05/22/19 06:25 Polychromasia Not Reportable 05/22/19 06:25 Hypochromasia Few 05/22/19 06:25 Poikilocytosis Not Reportable 05/22/19 06:25 Anisocytosis Not Reportable 05/22/19 06:25 Microcytosis Not Reportable 05/22/19 06:25 Macrocytosis Not Reportable 05/22/19 06:25 Spherocytes Not Reportable 05/22/19 06:25 Pappenheimer Bodies Not Reportable 05/22/19 06:25 Sickle Cells Not Reportable 05/22/19 06:25 Target Cells Not Reportable 05/22/19 06:25 Tear Drop Cells Not Reportable 05/22/19 06:25 Ovalocytes Few 05/22/19 06:25 Stomatocytes Few 05/22/19 06:25 Helmet Cells Not Reportable 05/22/19 06:25 [place] Bodies Not Reportable 05/22/19 06:25 [place] Rings Not Reportable 05/22/19 06:25 [place] Cells Not Reportable 05/22/19 06:25 Bite Cells Not Reportable 05/22/19 06:25 Crenated Cell Not Reportable 05/22/19 06:25 Elliptocytes Not Reportable 05/22/19 06:25 Acanthocytes (Spur) Not Reportable 05/22/19 06:25 Rouleaux Not Reportable 05/22/19 06:25 Hemoglobin C Crystals Not Reportable 05/22/19 06:25 Schistocytes Few 05/22/19 06:25 Malaria parasites Not Reportable 05/22/19 06:25 Syed Bodies Not Reportable 05/22/19 06:25 Hem Pathologist Commnt No 05/22/19 06:25 PT 15.4 Sec. (12.2-14.9) H 05/01/19 Unknown INR 1.23 (0.87-1.13) H 05/01/19 Unknown APTT 22.7 Sec. (24.2-36.6) L 05/01/19 Unknown POC ABG pH 7.313 (7.35-7.45) L 05/25/19 04:22 ABG pH 7.281 pH Units (7.350-7.450) L 05/20/19 05:48 POC ABG pCO2 51.1 (35-45) H 05/25/19 04:22 ABG pCO2 52.0 mm Hg 05/20/19 05:48 POC ABG pO2 77 (80-105) L 05/25/19 04:22 ABG pO2 78.7 mm Hg (80.0-90.0) L 05/20/19 05:48 POC ABG HCO3 25.9 (22-26 mml/L) 05/25/19 04:22 ABG HCO3 24.0 mmol/L (20.0-26.0) 05/20/19 05:48 POC ABG Total CO2 27 (23-27mmol/L) 05/25/19 04:22 POC ABG O2 Sat 94 05/25/19 04:22 ABG O2 Saturation 94.5 % (95.0-99.0) L 05/20/19 05:48 ABG O2 Content 13.0 (0.0-44) 05/20/19 05:48 POC ABG Base Excess 0 ((-2) - (+3)mmol/L) 05/25/19 04:22 ABG Base Excess -3.0 mmol/L (-2.0-3.0) L 05/20/19 05:48 ABG Hemoglobin 9.9 gm/dl (14.0-18.0) L 05/20/19 05:48 ABG Carboxyhemoglobin 1.6 % (0.0-5.0) 05/20/19 05:48 ABG Methemoglobin 0.6 % (0.0-1.5) 05/20/19 05:48 Oxyhemoglobin 92.5 % (95.0-99.0) L 05/20/19 05:48 FiO2 45 % 05/25/19 04:22 Sodium 139 mmol/L (137-145) 05/24/19 05:00 Potassium 4.5 mmol/L (3.6-5.0) 05/24/19 05:00 Chloride 95.7 mmol/L (98-107) L 05/24/19 05:00 Carbon Dioxide 22 mmol/L (22-30) 05/24/19 05:00 Anion Gap 26 mmol/L 05/24/19 05:00 BUN 97 mg/dL (9-20) H 05/24/19 05:00 Creatinine 6.5 mg/dL (0.8-1.5) H 05/24/19 05:00 Estimated GFR 12 ml/min 05/24/19 05:00 BUN/Creatinine Ratio 15 % 05/24/19 05:00 Glucose 79 mg/dL (75-100) 05/24/19 05:00 POC Glucose 92 (70-105) 05/25/19 13:04 Osmolality 327 Mosm/kg 05/07/19 13:45 Uric Acid 18.0 mg/dL (3.5-7.6) H 05/07/19 13:45 Calcium 8.0 mg/dL (8.4-10.2) L 05/24/19 05:00 Phosphorus 4.90 mg/dL (2.5-4.5) H 05/02/19 00:06 Magnesium 2.30 mg/dL (1.7-2.3) 05/02/19 00:06 Total Bilirubin 0.20 mg/dL (0.1-1.2) 05/10/19 05:00 AST 34 units/L (5-40) 05/10/19 05:00 ALT 35 units/L (7-56) 05/10/19 05:00 Alkaline Phosphatase 45 units/L (35-129) 05/10/19 05:00 Total Creatine Kinase 131 units/L (55-170) 05/02/19 04:41 CK-MB (CK-2) 5.2 ng/mL (0.0-4.0) H 05/02/19 04:41 CK-MB (CK-2) Rel Index 3.9 (0-4) 05/02/19 04:41 Troponin T 0.067 ng/mL (0.00-0.029) H D 05/02/19 04:41 NT-Pro-B Natriuret Pep 6831 pg/mL (0-450) H 05/01/19 Unknown Total Protein 6.1 g/dL (6.3-8.2) L 05/10/19 05:00 Albumin 2.5 g/dL (3.9-5) L 05/10/19 05:00 Albumin/Globulin Ratio 0.7 % 05/10/19 05:00 Triglycerides 173 mg/dL (2-149) H 05/17/19 Unknown Cholesterol 173 mg/dL (50-199) 05/02/19 00:06 LDL Cholesterol Direct 126 mg/dL (50-130) 05/02/19 00:06 HDL Cholesterol 18 mg/dL (40-59) L 05/02/19 00:06 Cholesterol/HDL Ratio 9.61 % 05/02/19 00:06 Procalcitonin 0.54 ng/mL (<0.15) 05/03/19 11:52 Urine Color Yellow (Yellow) 05/20/19 12:00 Urine Turbidity Cloudy (Clear) 05/20/19 12:00 Urine pH 5.0 (5.0-7.0) 05/20/19 12:00 Ur Specific [place] 1.015 (1.003-1.030) 05/20/19 12:00 Urine Protein 30 mg/dl mg/dL (Negative) 05/20/19 12:00 Urine Glucose (UA) Neg mg/dL (Negative) 05/20/19 12:00 Urine Ketones Neg mg/dL (Negative) 05/20/19 12:00 Urine Blood Lg (Negative) 05/20/19 12:00 Urine Nitrite Neg (Negative) 05/20/19 12:00 Urine Bilirubin Neg (Negative) 05/20/19 12:00 Urine Urobilinogen < 2.0 mg/dL (<2.0) 05/20/19 12:00 Ur Leukocyte Esterase Mod (Negative) 12/26/19 12:00 Urine WBC (Auto) 26.0 /HPF (0.0-6.0) H 05/20/19 12:00 Urine RBC (Auto) 83.0 /HPF (0.0-6.0) 05/20/19 12:00 Urine Bacteria (Auto) 1+ /HPF (Negative) 05/20/19 12:00 Uric Acid Crystals 3+ 05/03/19 10:55 Urine Mucus Few /HPF 05/20/19 12:00 Urine Yeast (Budding) 3+ /HPF 05/20/19 12:00 Urine Creatinine 292.8 mg/dL (0.1-20.0) H 05/07/19 22:40 Urine Sodium 11 mmol/L 05/07/19 22:40 Urine Total Protein 269 mg/dL (5-11.8) H 05/07/19 22:40 Vancomycin Trough 20.5 ug/mL (5.0-20.0) H 05/15/19 09:00 Random Vancomycin 14.0 ug/mL (0-40.0) 05/21/19 05:20 AMNA Screen Negative (Negative) 05/07/19 13:45 Hepatitis A IgM Ab Non-reactive (NonReactive) 05/07/19 13:45 Hep Bs Antigen Non-reactive (Negative) 05/07/19 13:45 Hep B Core IgM Ab Non-reactive (NonReactive) 05/07/19 13:45 Hepatitis C Antibody Non-reactive (NonReactive) 05/07/19 13:45 Active Medications - Current Medications Current Medications: Generic Name Dose Route Start Last Admin Trade Name Freq PRN Reason Stop Dose Admin Acetaminophen 650 mg 05/01/19 22:46 05/25/19 07:19 Tylenol PO 650 mg Q4H PRN Administration Pain MILD(1-3)/Fever >100.5/FREEMAN Albumin Human 25 gm 05/19/19 10:47 Alburx 25% (Albumin) IV ARIANE PRN Hypotension Alteplase, Recombinant 2 mg 05/25/19 09:30 05/25/19 09:21 Cathflo IV 2 mg ARIANE PRN Administration LINE FLUSH Lipase/Protease/Amylase 1 each 05/14/19 15:01 Pancreaze 10,500 Unit FEEDTUBE PRN PRN For Clogged Feeding Tube Dextrose 50 gm 05/01/19 20:24 D50w (25gm) Vial IV Q30MIN PRN Hypoglycemia Protocol Enoxaparin Sodium 30 mg 05/16/19 10:00 05/25/19 10:05 Enoxaparin SUB-Q 30 mg QDAY VICKEY Administration Epoetin Hugo 10,000 unit 05/19/19 10:47 Procrit IV ARIANE PRN hemodialysis Famotidine 20 mg 05/16/19 10:00 05/25/19 10:06 Pepcid PO 20 mg DAILY VICKEY Administration Hydralazine HCl 20 mg 05/13/19 08:09 05/14/19 18:09 Apresoline IV 20 mg Q4HR PRN Administration SBP >/=160 Hydrophilic Ointment 1 applic 05/01/19 21:14 Vaseline Lip Therapy TP Q2HR PRN Dry Lips Fentanyl Citrate 2,000 mcg in 100 mls @ 10.195 mls/hr 05/01/19 22:00 05/25/19 10:34 Fentanyl Drip Premix IV 2 mcg/kg/hr TITR VICKEY 20.39 mls/hr Administration Protocol 1 MCG/KG/HR Propofol 1,000 mg in 100 mls @ 7.011 mls/hr 05/03/19 04:00 05/25/19 04:01 Diprivan 10 Mg/Ml IV 5 mcg/kg/min TITR VICKEY 7.011 mls/hr Titration Protocol 5 MCG/KG/MIN Norepinephrine 4 mg in 250 mls @ 7.5 mls/hr 05/03/19 18:00 05/20/19 08:04 Levophed Drip 4 Mg/Ns 250 Ml IV 0 mcg/min TITR VICKEY 0 mls/hr Titration Protocol 2 MCG/MIN Sodium Chloride 500 mls @ 10 mls/hr 05/06/19 15:00 Nacl 0.9% 500 Ml IV DIRECT VICKEY Metronidazole 500 mg in 100 mls @ 100 mls/hr 05/11/19 14:00 05/25/19 13:55 Flagyl 500 Mg/100 Ml IV 100 mls/hr Q8HR VICKEY Administration Protocol Nicardipine HCl 50 mg/ Sodium 250 mls @ 25 mls/hr 05/13/19 10:00 05/14/19 23:12 Chloride IV 0 mg/hr TITR VICKEY 0 mls/hr Titration Protocol 5 MG/HR Cefepime HCl 2 gm in 100 mls @ 200 mls/hr 05/18/19 11:00 05/25/19 10:06 Cefepime/Ns 2 Gm/100 Ml IV 200 mls/hr Q24HR VICKEY Administration Protocol Sodium Chloride 100 mls @ 999 mls/hr 05/19/19 10:47 05/20/19 08:14 Nacl 0.9% IV 999 mls/hr ARIANE PRN Administration Hypotension Fluconazole 200 mg in 100 mls @ 100 mls/hr 05/24/19 15:00 05/25/19 14:17 Diflucan IV 100 mls/hr Q24H VICKEY Administration Protocol Vancomycin HCl 2,000 mg/ 540 mls @ 250 mls/hr 05/25/19 20:00 Sodium Chloride IV 05/25/19 22:09 ONCE ONE Labetalol HCl 100 mg 05/14/19 14:00 05/25/19 13:56 Labetalol PO 100 mg Q8HR IVCKEY Administration Levetiracetam 750 mg 05/13/19 10:00 05/25/19 10:05 Keppra PO 750 mg BID VICKEY Administration Lorazepam 2 mg 05/06/19 06:22 05/10/19 16:17 Ativan IV 2 mg Q4H PRN Administration Seizures/AGITATION Multi-Ingred Cream/Lotion/Oil/Oint 1 applic 05/01/19 21:14 Artificial Tears Ophth Oint OU Q4HR PRN Dry Eye(s) Ondansetron HCl 4 mg 05/01/19 22:46 Zofran IV Q8H PRN Nausea And Vomiting Scopolamine 1 each 05/20/19 12:00 05/20/19 12:52 Transderm-Scop TD 1 each Q72HR VICKEY Administration Simple Syrup 15 ml 05/14/19 15:01 Simple Syrup FEEDTUBE PRN PRN Hypoglycemia Simple Syrup 30 ml 05/14/19 15:01 Simple Syrup FEEDTUBE PRN PRN Hypoglycemia Sodium Bicarbonate 325 mg 05/14/19 15:01 Sodium Bicarbonate FEEDTUBE PRN PRN For Clogged Feeding Tube Sodium Chloride 10 ml 05/02/19 10:00 05/25/19 10:07 Sodium Chloride Flush Syringe 10 Ml IV 10 ml BID VICKEY Administration Sodium Chloride 10 ml 05/01/19 22:46 05/05/19 02:28 Sodium Chloride Flush Syringe 10 Ml IV 10 ml PRN PRN Administration LINE FLUSH Nutrition/Malnutrition Assess - Dietary Evaluation Nutrition/Malnutrition Findings: Nutrition Notes Start: 05/04/19 12:54 Freq: Status: Active Protocol: Document 05/21/19 10:08 LM (Rec: 05/21/19 10:26 LM [id number]) Nutrition Notes Initial or Follow up Reassessment Current Diagnosis Acute Kidney Injury,Sepsis, Respiratory Failure Current Diet Nepro 1.8 at 50 ml/hr Labs/Tests Na 137 BUN 102 Cr 7 BG 103 Pertinent Medications Propofol at 7.011 ml/hr (185 kcal) Height 6 ft 4 in Weight 261.4 kg [place] Body Weight (kg) 91.81 BMI 70.1 Weight change and time frame Wt change noted. Likely due to fluid Weight Status Morbidly Obese Subjective/Other Information Nepro running at 50 ml/hr at time of visit. Will keep flush at 150 ml q4h until Na increases. Pt received HD on 05/20. Pt tolerating TF. Percent of energy/protein needs met: 86%/43% Burn Absent Trauma Absent Current % PO Negligible Minimum of two criteria No physical signs of malnutrition #1 Nutrition Diagnosis Inadequate oral intake Diagnosis Progress(for reassessment Continues documentation) Is patient on ventilator? Yes Is Patient Ambulatory and/or Out of Bed No REE-([facility]-confined to bed) 4392.636 Kcal/Kg value to use for calculation 11 Approximate Energy Requirements Using 2875 kcal/Kg Calculation Used for Recommendations Kcal/kg Additional Notes Energy needs: 2503 kcal PRO needs: 225 g (up to 2.5 g/ kg 91.81 IBW) Fluid needs: 1 ml/kcal Nutrition Intervention Change Diet Order: Continue TF Nutrition Support: Nepro 1.8 at 50 ml/hr flush 150 ml q4hr for hyponatremia flush 200 ml q4h once hyponatremia resolves Kcal 2,160 Protein (gm) 97 Fluid (mL) 872 Goal #1 TF tolerance Goal #2 Meet at least 75% kcal/PRO needs via TF Anticipated Discharge Needs: Unable to determine at this time Follow-Up By: 05/28/19 Additional Comments F/U for TF tolerance/Na lab
[2019-05-25 16:04] LABS: Hematocrit 24.9 % (35.5-45.6); Hemoglobin 8.1 gm/dl (11.8-15.2); Mean Corpuscular HGB Conc 32 % (32-34); Mean Corpuscular Volume 84 fl (84-94); Platelet Count 240 K/mm3 (140-440); Red Blood Count 2.98 M/mm3 (3.65-5.03); Red Cell Distribution Width 17.8 % (13.2-15.2)
[2019-05-25 16:29] LABS: Calcium 7.6 mg/dL (8.4-10.2)
--- NOTE | 2019-05-25 16:55 | Progress Note ---
Assessment and Plan Cultures: Blood cultures 05/11/19: no growth thus far Blood cultures 05/18/19 pending Sputum culture 05/11/19: no growth thus far urine culture: no growth resp culture: no growth Blood culture 05/18/2019: no growth thus far urine culture 05/20/2019: normal skin shandra, Jarad albicans sputum culture 05/20/2019: Jarad albicans Blood culture 05/23/2019: no growth A/P: 34-year-old male with obesity admitted with: #Fever, SIRS with shock: shock resolved, intermittently febrile. Initially felt to be ?aspiration related. Apparently was using CPAP. Persistent febrile again, likely ?UTI. Repeat UA showed pyuria, had indwelling Han which was removed again 05/20. Urine culture with normal skin shandra. Fevers now recurred since 05/17. Should eval for worsening pneumonia, sinusitis, but unable to fit in CT scan. candiduria also generally does not require treatment, but in this patient with recurrent fever, reasonable to consider a trial of fluconazole renally adjusted. ?drug fever, given eosinophilia. #Acute hypoxic hypercapneic respiratory failure, possibly obesity hypoventilation syndrome: on the vent. Pulmonary managing. jarad in sputum does not need treatment, it almost never causes a pneumonia and is reflective of colonization, overgrowth in the setting of abx use #Morbid obesity #CARLA: creatinine elevated. dose abx accordingly. Now on HD via vascath #Elevated LFTs: RUQ US showed fatty liver, small GB sludge. Improving. #Acute encephalopathy with ?seizure activity: persistent fevers. Has been receiving empiric meningitis coverage #UTI: s/p han removal on 05/20 Recs: - patient with persistent fevers and evidence of eosinophilia. Suspect drug fever. Will discontinue Cefepime, Flagyl and Vancomycin - started linezolid 600 mg q12 hrs along with levofloxacin renally adjusted - continue fluconazole for now - follow up blood cultures Burke Wilks MD, FACP [facility] ([facility]) C: [phone] O: [phone] F: [phone] Subjective Date of service: 05/25/19 Principal diagnosis: HF; acute hypoxemic resp failure, SIRS, CARLA Interval history: Continues to be febrile. Remains intubated, sedated on the vent. Discussed with RN. Objective - Exam Narrative Exam: Physical Exam: Constitutional: sedated, intubated. Morbid obesity Head, Ears, Nose: Normocephalic, atraumatic. External ears, nose normal Eyes: Conjunctivae/corneas clear. No icterus. No ptosis. Neck: intubated Oral: intubated Cardiovascular: S1, S2 normal. Respiratory: Good air entry, clear to auscultation bilaterally GI: Soft, non-tender; bowel sounds normal. No peritoneal signs Musculoskeletal: No pedal edema, no cyanosis. Skin: No rash or abscess Hem/Lymphatic: No palpable cervical or supraclavicular nodes. No lymphangitis Psych: no agitation Neurological: sedated, intubated, on vent - Constitutional Vitals: Vital Signs Temp Pulse Resp BP Pulse Ox 101.3 F H 91 H 13 108/42 95 05/25/19 16:00 05/25/19 16:00 05/25/19 16:00 05/25/19 16:00 05/25/19 16:00 Temperature -Last 24 Hours Temperature 101.3 F Temperature 100.8 F Temperature 100.8 F Temperature 102.2 F Temperature 102.2 F Temperature 100.4 F Temperature 99.9 F Temperature 99.4 F - Labs CBC & Chem 7: 05/25/19 15:45 05/25/19 15:45 Labs: Abnormal lab results 05/25/19 05/25/19 05/25/19 Range/Units 04:22 15:45 15:45 RBC 2.98 L (3.65-5.03) M/mm3 Hgb 8.1 L (11.8-15.2) gm/dl Hct 24.9 L (35.5-45.6) % MCH 27 L (28-32) pg RDW 17.8 H (13.2-15.2) % POC ABG pH 7.313 L (7.35-7.45) POC ABG pCO2 51.1 H (35-45) POC ABG pO2 77 L (80-105) Sodium 136 L (137-145) mmol/L Chloride 96.8 L (98-107) mmol/L BUN 83 H (9-20) mg/dL Creatinine 5.9 H (0.8-1.5) mg/dL Calcium 7.6 L (8.4-10.2) mg/dL
--- NOTE | 2019-05-25 17:59 | Progress Note ---
Assessment and Plan # Acute kidney injury on HD: creatinine has worsened, potentially from vancomycin toxicity, now HD dependent. Initially with suspected tubular injury in setting of sepsis, respiratory failure, hypotension. - plan to continue HD // or prn; seen today on HD- CVC with flow issues but able to make it through treatment with alteplase - continue to assess for renal recovery - continue supportive measures, appreciate pulm and ID input - avoid nephrotoxins - appreciate vascular assistance with vas-cath placement # Hypernatremia: now resolved off Florinef - continue free water flushes with TF # HTN: BP reasonable, continue current management # Anemia: hemoglobin 8.1, pRBC transfusion prn. Start ESAs with HD # Encephalopathy, seizure disorder, hypoxic respiratory failure, fever: ID and pulm following We'll continue to follow and make recommendation from renal standpoint for this critically ill patient; we appreciate the opportunity to assist in his care. Subjective Date of service: 05/25/19 Principal diagnosis: HF; acute hypoxemic resp failure, SIRS, CARLA Interval history: No acute events noted. Remains intubated and sedated. Seen on HD; having issues with HD due to poor catheter flows. Objective - Exam Narrative Exam: General: No acute distress/ intubated and sedated HEENT: ET tube in place Neck: Supple Chest:coarse mechanical breath sounds, PRVC with FiO2 50% Heart: Regular rate and rhythm Abdomen: Soft nontender Extremity: no edema Psych: sedated Derm: No petechial rash - Vital Signs Vital signs: Vital Signs - 12hr 05/25/19 05/25/19 05/25/19 06:00 06:15 06:31 Temperature Pulse Rate 97 H 106 H 108 H Respiratory 25 H 26 H 23 Rate Blood Pressure 107/48 107/48 107/48 O2 Sat by Pulse 95 93 93 Oximetry O2 Sat by Pulse Oximetry [ Anterior Bilateral Throughout] O2 Sat by Pulse Oximetry [ Bilateral Bases ] 05/25/19 05/25/19 05/25/19 06:45 07:00 07:12 Temperature Pulse Rate 110 H 107 H 104 H Respiratory 21 26 H Rate Blood Pressure 107/48 115/42 115/42 O2 Sat by Pulse 94 94 Oximetry O2 Sat by Pulse Oximetry [ Anterior Bilateral Throughout] O2 Sat by Pulse Oximetry [ Bilateral Bases ] 05/25/19 05/25/19 05/25/19 07:15 07:31 07:45 Temperature Pulse Rate 108 H 109 H 104 H Respiratory 16 16 15 Rate Blood Pressure 107/48 107/48 115/42 O2 Sat by Pulse 94 92 91 Oximetry O2 Sat by Pulse Oximetry [ Anterior Bilateral Throughout] O2 Sat by Pulse Oximetry [ Bilateral Bases ] 05/25/19 05/25/19 05/25/19 08:00 08:15 08:30 Temperature 102.2 F H Pulse Rate 99 H 101 H 104 H Respiratory 25 H 25 H 21 Rate Blood Pressure 108/39 108/39 118/49 O2 Sat by Pulse 94 93 96 Oximetry O2 Sat by Pulse Oximetry [ Anterior Bilateral Throughout] O2 Sat by Pulse Oximetry [ Bilateral Bases ] 05/25/19 05/25/19 05/25/19 08:45 09:00 09:15 Temperature Pulse Rate 96 H 111 H 118 H Respiratory 13 12 24 Rate Blood Pressure 111/37 115/38 114/71 O2 Sat by Pulse 94 93 89 Oximetry O2 Sat by Pulse Oximetry [ Anterior Bilateral Throughout] O2 Sat by Pulse Oximetry [ Bilateral Bases ] 05/25/19 05/25/19 05/25/19 09:30 09:39 09:45 Temperature 102.2 F H Pulse Rate 114 H 100 H 104 H Respiratory 29 H 24 26 H Rate Blood Pressure 123/67 108/50 113/42 O2 Sat by Pulse 89 88 Oximetry O2 Sat by Pulse 98 Oximetry [ Anterior Bilateral Throughout] O2 Sat by Pulse 98 Oximetry [ Bilateral Bases ] 05/25/19 05/25/19 05/25/19 10:00 10:15 10:25 Temperature Pulse Rate 106 H 98 H 93 H Respiratory 15 17 Rate Blood Pressure 123/52 108/42 108/42 O2 Sat by Pulse 95 92 93 Oximetry O2 Sat by Pulse Oximetry [ Anterior Bilateral Throughout] O2 Sat by Pulse Oximetry [ Bilateral Bases ] 05/25/19 05/25/19 05/25/19 10:30 10:31 10:45 Temperature Pulse Rate 95 H 93 H 97 H Respiratory 14 14 Rate Blood Pressure 112/44 112/44 115/47 O2 Sat by Pulse 92 93 Oximetry O2 Sat by Pulse Oximetry [ Anterior Bilateral Throughout] O2 Sat by Pulse Oximetry [ Bilateral Bases ] 05/25/19 05/25/19 05/25/19 11:00 11:15 11:30 Temperature Pulse Rate 95 H 96 H 99 H Respiratory 14 16 18 Rate Blood Pressure 115/47 116/53 115/49 O2 Sat by Pulse 93 97 96 Oximetry O2 Sat by Pulse Oximetry [ Anterior Bilateral Throughout] O2 Sat by Pulse Oximetry [ Bilateral Bases ] 05/25/19 05/25/19 05/25/19 11:45 12:00 12:10 Temperature 100.8 F H Pulse Rate 95 H 98 H Respiratory 13 18 Rate Blood Pressure 113/46 107/41 O2 Sat by Pulse 95 97 94 Oximetry O2 Sat by Pulse Oximetry [ Anterior Bilateral Throughout] O2 Sat by Pulse Oximetry [ Bilateral Bases ] 05/25/19 05/25/19 05/25/19 12:15 12:30 12:31 Temperature Pulse Rate 106 H 112 H 113 H Respiratory 17 11 L Rate Blood Pressure 120/45 124/52 124/52 O2 Sat by Pulse 95 94 Oximetry O2 Sat by Pulse Oximetry [ Anterior Bilateral Throughout] O2 Sat by Pulse Oximetry [ Bilateral Bases ] 05/25/19 05/25/19 05/25/19 12:45 13:00 13:15 Temperature Pulse Rate 106 H 92 H 92 H Respiratory 18 14 14 Rate Blood Pressure 109/47 106/38 105/39 O2 Sat by Pulse 94 95 96 Oximetry O2 Sat by Pulse Oximetry [ Anterior Bilateral Throughout] O2 Sat by Pulse Oximetry [ Bilateral Bases ] 05/25/19 05/25/19 05/25/19 13:16 13:30 13:40 Temperature 100.8 F H Pulse Rate 93 H 91 H 91 H Respiratory 12 13 Rate Blood Pressure 105/39 107/43 106/38 O2 Sat by Pulse 97 Oximetry O2 Sat by Pulse 97 Oximetry [ Anterior Bilateral Throughout] O2 Sat by Pulse Oximetry [ Bilateral Bases ] 05/25/19 05/25/19 05/25/19 13:45 13:56 14:00 Temperature Pulse Rate 89 87 86 Respiratory 11 L 12 Rate Blood Pressure 112/45 112/45 101/44 O2 Sat by Pulse 98 98 Oximetry O2 Sat by Pulse Oximetry [ Anterior Bilateral Throughout] O2 Sat by Pulse Oximetry [ Bilateral Bases ] 05/25/19 05/25/19 05/25/19 14:15 14:30 14:45 Temperature Pulse Rate 88 89 88 Respiratory 12 21 10 L Rate Blood Pressure 108/46 112/44 111/42 O2 Sat by Pulse 98 98 97 Oximetry O2 Sat by Pulse Oximetry [ Anterior Bilateral Throughout] O2 Sat by Pulse Oximetry [ Bilateral Bases ] 05/25/19 05/25/19 05/25/19 15:00 15:15 15:30 Temperature Pulse Rate 91 H 92 H 91 H Respiratory 11 L 11 L 13 Rate Blood Pressure 109/44 113/47 110/42 O2 Sat by Pulse 97 98 97 Oximetry O2 Sat by Pulse Oximetry [ Anterior Bilateral Throughout] O2 Sat by Pulse Oximetry [ Bilateral Bases ] 05/25/19 05/25/19 05/25/19 15:45 16:00 16:15 Temperature 101.3 F H Pulse Rate 91 H 92 H 92 H Respiratory 13 13 14 Rate Blood Pressure 109/39 108/42 106/43 O2 Sat by Pulse 94 94 95 Oximetry O2 Sat by Pulse Oximetry [ Anterior Bilateral Throughout] O2 Sat by Pulse Oximetry [ Bilateral Bases ] 05/25/19 05/25/19 05/25/19 16:30 16:45 17:00 Temperature Pulse Rate 104 H 100 H 108 H Respiratory 18 17 16 Rate Blood Pressure 96/41 100/36 103/34 O2 Sat by Pulse 87 85 Oximetry O2 Sat by Pulse Oximetry [ Anterior Bilateral Throughout] O2 Sat by Pulse Oximetry [ Bilateral Bases ] 05/25/19 05/25/19 17:15 17:18 Temperature Pulse Rate 110 H 99 H Respiratory 20 Rate Blood Pressure 102/42 102/42 O2 Sat by Pulse 86 92 Oximetry O2 Sat by Pulse Oximetry [ Anterior Bilateral Throughout] O2 Sat by Pulse Oximetry [ Bilateral Bases ] - Lab 05/25/19 15:45 05/25/19 15:45 Most recent lab results ABG pH 7.281 pH Units (7.350-7.450) L 05/20/19 05:48 ABG pCO2 52.0 mm Hg 05/20/19 05:48 ABG pO2 78.7 mm Hg (80.0-90.0) L 05/20/19 05:48 ABG HCO3 24.0 mmol/L (20.0-26.0) 05/20/19 05:48 ABG O2 Saturation 94.5 % (95.0-99.0) L 05/20/19 05:48 Calcium 7.6 mg/dL (8.4-10.2) L 05/25/19 15:45 Phosphorus 4.90 mg/dL (2.5-4.5) H 05/02/19 00:06 Magnesium 2.30 mg/dL (1.7-2.3) 05/02/19 00:06 Urine Creatinine 292.8 mg/dL (0.1-20.0) H 05/07/19 22:40 Urine Sodium 11 mmol/L 05/07/19 22:40 Urine Total Protein 269 mg/dL (5-11.8) H 05/07/19 22:40 Medications & Allergies - Medications Allergies/Adverse Reactions: Allergies No Known Allergies Allergy (Verified 05/01/19 20:27) Home Medications: Home Medications Medication Instructions Recorded Confirmed Last Taken Type RX: No Known Home Medications [No 05/03/19 05/03/19 Unknown History Reported Home Medications] Active Medications: Generic Name Dose Route Start Last Admin Trade Name Freq PRN Reason Stop Dose Admin Acetaminophen 650 mg 05/01/19 22:46 05/25/19 17:37 Tylenol PO 650 mg Q4H PRN Administration Pain MILD(1-3)/Fever >100.5/FREEMAN Albumin Human 25 gm 05/19/19 10:47 Alburx 25% (Albumin) IV ARIANE PRN Hypotension Alteplase, Recombinant 2 mg 05/25/19 09:30 05/25/19 09:21 Cathflo IV 2 mg ARIANE PRN Administration LINE FLUSH Lipase/Protease/Amylase 1 each 05/14/19 15:01 Pancreaze 10,500 Unit FEEDTUBE PRN PRN For Clogged Feeding Tube Dextrose 50 gm 05/01/19 20:24 D50w (25gm) Vial IV Q30MIN PRN Hypoglycemia Protocol Enoxaparin Sodium 30 mg 05/16/19 10:00 05/25/19 10:05 Enoxaparin SUB-Q 30 mg QDAY VICKEY Administration Epoetin Hugo 10,000 unit 05/19/19 10:47 Procrit IV ARIANE PRN hemodialysis Famotidine 20 mg 05/16/19 10:00 05/25/19 10:06 Pepcid PO 20 mg DAILY VICKEY Administration Hydralazine HCl 20 mg 05/13/19 08:09 05/14/19 18:09 Apresoline IV 20 mg Q4HR PRN Administration SBP >/=160 Hydrophilic Ointment 1 applic 05/01/19 21:14 Vaseline Lip Therapy TP Q2HR PRN Dry Lips Fentanyl Citrate 2,000 mcg in 100 mls @ 10.195 mls/hr 05/01/19 22:00 05/25/19 15:58 Fentanyl Drip Premix IV 2 mcg/kg/hr TITR VICKEY 20.39 mls/hr Administration Protocol 1 MCG/KG/HR Propofol 1,000 mg in 100 mls @ 7.011 mls/hr 05/03/19 04:00 05/25/19 04:01 Diprivan 10 Mg/Ml IV 5 mcg/kg/min TITR VICKEY 7.011 mls/hr Titration Protocol 5 MCG/KG/MIN Norepinephrine 4 mg in 250 mls @ 7.5 mls/hr 05/03/19 18:00 05/20/19 08:04 Levophed Drip 4 Mg/Ns 250 Ml IV 0 mcg/min TITR VICKEY 0 mls/hr Titration Protocol 2 MCG/MIN Sodium Chloride 500 mls @ 10 mls/hr 05/06/19 15:00 Nacl 0.9% 500 Ml IV DIRECT VICKEY Nicardipine HCl 50 mg/ Sodium 250 mls @ 25 mls/hr 05/13/19 10:00 05/14/19 23:12 Chloride IV 0 mg/hr TITR VICKEY 0 mls/hr Titration Protocol 5 MG/HR Sodium Chloride 100 mls @ 999 mls/hr 05/19/19 10:47 05/20/19 08:14 Nacl 0.9% IV 999 mls/hr ARIANE PRN Administration Hypotension Fluconazole 200 mg in 100 mls @ 100 mls/hr 05/24/19 15:00 05/25/19 14:17 Diflucan IV 100 mls/hr Q24H VICKEY Administration Protocol Levofloxacin/Dextrose 500 mg in 100 mls @ 100 mls/hr 05/25/19 17:00 05/25/19 17:37 Levaquin 500mg/100ml IV 100 mls/hr Q48H VICKEY Administration Protocol Linezolid 600 mg in 300 mls @ 300 mls/hr 05/25/19 22:00 Zyvox 600mg/300ml IV Q12HR VICKEY Protocol Labetalol HCl 100 mg 05/14/19 14:00 05/25/19 13:56 Labetalol PO 100 mg Q8HR VICKEY Administration Levetiracetam 750 mg 05/13/19 10:00 05/25/19 10:05 Keppra PO 750 mg BID VICKEY Administration Lorazepam 2 mg 05/06/19 06:22 05/10/19 16:17 Ativan IV 2 mg Q4H PRN Administration Seizures/AGITATION Multi-Ingred Cream/Lotion/Oil/Oint 1 applic 05/01/19 21:14 Artificial Tears Ophth Oint OU Q4HR PRN Dry Eye(s) Ondansetron HCl 4 mg 05/01/19 22:46 Zofran IV Q8H PRN Nausea And Vomiting Scopolamine 1 each 05/20/19 12:00 05/20/19 12:52 Transderm-Scop TD 1 each Q72HR VICKEY Administration Simple Syrup 15 ml 05/14/19 15:01 Simple Syrup FEEDTUBE PRN PRN Hypoglycemia Simple Syrup 30 ml 05/14/19 15:01 Simple Syrup FEEDTUBE PRN PRN Hypoglycemia Sodium Bicarbonate 325 mg 05/14/19 15:01 Sodium Bicarbonate FEEDTUBE PRN PRN For Clogged Feeding Tube Sodium Chloride 10 ml 05/02/19 10:00 05/25/19 10:07 Sodium Chloride Flush Syringe 10 Ml IV 10 ml BID VICKEY Administration Sodium Chloride 10 ml 05/01/19 22:46 05/05/19 02:28 Sodium Chloride Flush Syringe 10 Ml IV 10 ml PRN PRN Administration LINE FLUSH
[2019-05-25] MEDS ORDERED: VANCOMYCIN 2,000 MG in SODIUM CHLORIDE 0.9% 500 ML 500 ML IV ONE (20:00)
[2019-05-25] MEDS: LINEZOLID 600 MG/300 ML BAG IV SCH (22:02)
[2019-05-26] MEDS: fentaNYL DRIP Premix 2,000 MCG/100 ML BAG IV SCH ×5 (04:53→21:47)
[2019-05-26] MEDS: ACETAMINOPHEN 325 MG TAB PO PRN ×2 (04:55→18:59)
[2019-05-26 05:38] LABS: Hemoglobin 8.4 gm/dl (11.8-15.2); Mean Corpuscular HGB Conc 32 % (32-34); Mean Corpuscular Volume 84 fl (84-94); Platelet Count 247 K/mm3 (140-440); Red Cell Distribution Width 17.4 % (13.2-15.2)
[2019-05-26 06:02] LABS: Calcium 7.6 mg/dL (8.4-10.2)
[2019-05-26] MEDS: levETIRAcetam 500 MG/5 ML ORAL LIQD PO SCH ×2 (09:41→21:46)
[2019-05-26] MEDS: FAMOTIDINE 20 MG TAB PO SCH (09:41)
[2019-05-26] MEDS: LINEZOLID 600 MG/300 ML BAG IV SCH (09:42)
[2019-05-26] MEDS: ENOXAPARIN 30 MG/0.3 ML INJ SUB-Q SCH (09:42)
--- NOTE | 2019-05-26 11:53 | Progress Note ---
Assessment and Plan Cultures: Blood cultures 05/11/19: no growth thus far Blood cultures 05/18/19 pending Sputum culture 05/11/19: no growth thus far urine culture: no growth resp culture: no growth Blood culture 05/18/2019: no growth thus far urine culture 05/20/2019: normal skin shandra, Jarad albicans sputum culture 05/20/2019: Jarad albicans Blood culture 05/23/2019: no growth A/P: 34-year-old male with obesity admitted with: #Fever, SIRS with shock: shock resolved, intermittently febrile. Initially felt to be ?aspiration related. Apparently was using CPAP. Persistent febrile again, likely ?UTI. Repeat UA showed pyuria, had indwelling Han which was removed again 05/20. Urine culture with normal skin shandra. Fevers now recurred since 05/17. Should eval for worsening pneumonia, sinusitis, but unable to fit in CT scan. candiduria also generally does not require treatment, but in this patient with recurrent fever, reasonable to consider a trial of fluconazole renally adjusted. ?drug fever, given eosinophilia. #Diffuse rash with eosinophilia: abx classes were changed. #Acute hypoxic hypercapneic respiratory failure, possibly obesity hypoventilation syndrome: on the vent. Pulmonary managing. jarad in sputum does not need treatment, it almost never causes a pneumonia and is reflective of colonization, overgrowth in the setting of abx use #Morbid obesity #CARLA: creatinine elevated. dose abx accordingly. Now on HD via vascath #Elevated LFTs: RUQ US showed fatty liver, small GB sludge. Improving. #Acute encephalopathy with ?seizure activity: persistent fevers. Has been receiving empiric meningitis coverage #UTI: s/p han removal on 05/20 Recs: - patient with persistent fevers and evidence of eosinophilia with rash. Suspect drug fever. We had switched abx classes on 05/25/2019. - consider steroid trial. d/w with Dr. Fernandez - for now, will continue linezolid, levofloxacin and fluconazole, but anticipate stopping antibiotics soon Burke Wilks MD, FACP [facility] C: [phone] O: [phone] F: [phone] Subjective Date of service: 05/26/19 Principal diagnosis: HF; acute hypoxemic resp failure, SIRS, CARLA Interval history: Continues to be febrile. New rash. Remains intubated, sedated on the vent Objective - Exam Narrative Exam: Physical Exam: Constitutional: sedated, intubated. Morbid obesity Head, Ears, Nose: Normocephalic, atraumatic. External ears, nose normal Eyes: Conjunctivae/corneas clear. No icterus. No ptosis. Neck: intubated Oral: intubated Cardiovascular: S1, S2 normal. Respiratory: Good air entry, clear to auscultation bilaterally GI: Soft, non-tender; bowel sounds normal. No peritoneal signs Musculoskeletal: No pedal edema, no cyanosis. Skin: Diffuse erythematous rash + Hem/Lymphatic: No palpable cervical or supraclavicular nodes. No lymphangitis Psych: no agitation Neurological: sedated, intubated, on vent - Constitutional Vitals: Vital Signs Temp Pulse Resp BP Pulse Ox 102.2 F H 84 8 L 121/54 94 05/26/19 08:00 05/26/19 11:00 05/26/19 11:00 05/26/19 11:00 05/26/19 11:00 Temperature -Last 24 Hours Temperature 102.2 F Temperature 102.6 F Temperature 102.6 F Temperature 101.3 F Temperature 102 F Temperature 101.3 F Temperature 101.3 F Temperature 100.8 F Temperature 100.8 F - Labs CBC & Chem 7: 05/26/19 05:00 05/26/19 05:00 Labs: Abnormal lab results 05/25/19 05/25/19 05/26/19 Range/Units 15:45 15:45 04:13 RBC 2.98 L (3.65-5.03) M/mm3 Hgb 8.1 L (11.8-15.2) gm/dl Hct 24.9 L (35.5-45.6) % MCH 27 L (28-32) pg RDW 17.8 H (13.2-15.2) % POC ABG pH 7.295 L (7.35-7.45) POC ABG pCO2 56.5 H (35-45) POC ABG pO2 63 L (80-105) Sodium 136 L (137-145) mmol/L Chloride 96.8 L (98-107) mmol/L BUN 83 H (9-20) mg/dL Creatinine 5.9 H (0.8-1.5) mg/dL Glucose (75-100) mg/dL Calcium 7.6 L (8.4-10.2) mg/dL 05/26/19 05/26/19 Range/Units 05:00 05:00 RBC 3.10 L (3.65-5.03) M/mm3 Hgb 8.4 L (11.8-15.2) gm/dl Hct 26.0 L (35.5-45.6) % MCH 27 L (28-32) pg RDW 17.4 H (13.2-15.2) % POC ABG pH (7.35-7.45) POC ABG pCO2 (35-45) POC ABG pO2 (80-105) Sodium 136 L (137-145) mmol/L Chloride 95.3 L (98-107) mmol/L BUN 96 H (9-20) mg/dL Creatinine 6.5 H (0.8-1.5) mg/dL Glucose 108 H (75-100) mg/dL Calcium 7.6 L (8.4-10.2) mg/dL
[2019-05-26] MEDS: FLUCONAZOLE 200 MG 200 MG/100 ML BAG IV SCH (14:29)
--- NOTE | 2019-05-26 15:23 | Progress Note ---
Assessment and Plan Assessment and plan: Patient is a 34-year-old man who is morbidly obese (575 lbs) with unknown medical history who presented to [facility] ED on 05/01/2019 (I started seeing patient for the first time on 05/20/19, Day 19) with SOB. He was placed on BIPAP and failed. He had a cardiac arrest in ED and was Intubated in ED. On 05/12/19- ETT exchanged due to hypoxia. In the chart there is a report that he has undiagnosis LANDON and using someone else CPAP. 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 Acute hypoxic and hypercapenic respiratory failure on vent >96hrs Status post intubation, continue sedation, consulted pulmonary And input noted still on high PEEP, making Tracheostomy difficult to attempt. Database Security Expert managing. Obesity Hypoventilation syndrome Patient previously on LANDON Management at home but per discussion with family, was non complaint Sepsis- not present on admission -On abx, ID following. LP when able ?Meningitis considering recurrent fever. Doubt, but ID following Acylovir stopped ?seizure activity -Meninigitis prophy -Neurology consult -EEG-negative Acute CHF, new onset, diastolic Diurese with IV lasix held, on HD now monitor I/O, daily weights Cardiology following. Added beta-jenny, no TIM inhibitor secondary to renal insufficiency Hypertension malignant Start antihypertensive, monitor blood pressure IV hydralazine as needed for further control Acute kidney injury due to ATN ?Vancomycin toxicity, Held. Monitor Nephrology following and input noted. Han for strict I/Os HD per nephrology Hyperkalemia-Kaylexate Passive congestive hepatic syndrome -LFT elevated but trending down -Noted Gallbladder sludge DVT prophylaxis with Lovenox Extreme obesity, bmi 70.1 Full code status. Prognosis guarded +han removed +ETT +NGT +Fentanyl; and Rosemarie PADILLA PIcc right Vas Cath IJ placed on Yang off levaphed since morning 05/20/2019 receiving HD drool, with increased secretion, scopolamine patch helped ?trach consideration, intubated since admission 05/01/19==>still too high PEEP for trach, ?PEG consideration Still febrile since 05/03/19, Patient unable to fit in scanner so CT of head sinus, chest will not happen. ID has placed back on renally adjusted Vanc. he has grown out jarad from urine and a tracheal aspirate I called his mother Magalis Jay again on Friday at [phone], her answered the phone but he is not James father. She came to the phone. She appeared to be crying, she says she has the FLU. no family present History Interval history: Patient was seen and examined. Follow-up on current diagnosis of Respiratory failure. Overnight uneventful. Imaging, nursing note, chart, labs and old chart reviewed. Still intubated and sedated Hospitalist Physical - Physical exam Narrative exam: Gen: critically ill, bmi 70.1 sedated HEENT: NCAT, OP ETT in place Neck: supple, no adenopathy, no thyromegaly, no JVD CVS/Heart: tachycardiac, normal S1S2, pulses present bilaterally Chest/Lungs: tachypneic, Symmetrical chest expansion, good air entry bilaterally GI/Abdomen: soft, NTND, good bowel sounds, no guarding or rebound : scrotal edema, unable to see his penis Extermity/Skin: good skin turgor MSK: sedated Neuro: sedated Psych: sedated - Constitutional Vitals: Temp Pulse Resp BP Pulse Ox 100.5 F H 82 13 117/53 94 05/26/19 12:00 05/26/19 14:28 05/26/19 14:15 05/26/19 14:28 05/26/19 14:15 General appearance: Present: no acute distress Results - Labs CBC & Chem 7: 05/26/19 05:00 05/26/19 05:00 Labs: Laboratory Last Values WBC 8.1 K/mm3 (4.5-11.0) 05/26/19 05:00 RBC 3.10 M/mm3 (3.65-5.03) L 05/26/19 05:00 Hgb 8.4 gm/dl (11.8-15.2) L 05/26/19 05:00 Hct 26.0 % (35.5-45.6) L 05/26/19 05:00 MCV 84 fl (84-94) 05/26/19 05:00 MCH 27 pg (28-32) L 05/26/19 05:00 MCHC 32 % (32-34) 05/26/19 05:00 RDW 17.4 % (13.2-15.2) H 05/26/19 05:00 Plt Count 247 K/mm3 (140-440) 05/26/19 05:00 Lymph % (Auto) 7.9 % (13.4-35.0) L 05/18/19 01:50 Dixie % (Auto) 16.2 % (0.0-7.3) H 05/22/19 06:25 Eos % (Auto) 10.8 % (0.0-4.3) H 05/22/19 06:25 Baso % (Auto) 0.2 % (0.0-1.8) 05/18/19 01:50 Lymph # 0.7 K/mm3 (1.2-5.4) L 05/18/19 01:50 Dixie # 1.3 K/mm3 (0.0-0.8) H 05/22/19 06:25 Eos # 0.9 K/mm3 (0.0-0.4) H 05/22/19 06:25 Baso # 0.0 K/mm3 (0.0-0.1) 05/22/19 06:25 Add Manual Diff Complete 05/22/19 06:25 Total Counted 100 05/22/19 06:25 Seg Neutrophils % 65.5 % (40.0-70.0) 05/22/19 06:25 Seg Neuts % (Manual) 65.0 % (40.0-70.0) 05/22/19 06:25 Band Neutrophils % 3.0 % 05/22/19 06:25 Lymphocytes % (Manual) 10.0 % (13.4-35.0) L 05/22/19 06:25 Reactive Lymphs % (Man) 0 % 05/22/19 06:25 Monocytes % (Manual) 13.0 % (0.0-7.3) H 05/22/19 06:25 Eosinophils % (Manual) 8.0 % (0.0-4.3) H 05/22/19 06:25 Basophils % (Manual) 0 % (0.0-1.8) 05/22/19 06:25 Metamyelocytes % 1.0 % 05/22/19 06:25 Myelocytes % 0 % 05/22/19 06:25 Promyelocytes % 0 % 05/22/19 06:25 Blast Cells % 0 % 05/22/19 06:25 Nucleated RBC % Not Reportable 05/22/19 06:25 Seg Neutrophils # 5.3 K/mm3 (1.8-7.7) 05/22/19 06:25 Seg Neutrophils # Man 5.6 K/mm3 (1.8-7.7) 05/22/19 06:25 Band Neutrophils # 0.3 K/mm3 05/22/19 06:25 Lymphocytes # (Manual) 0.9 K/mm3 (1.2-5.4) L 05/22/19 06:25 Abs React Lymphs (Man) 0.0 K/mm3 05/22/19 06:25 Monocytes # (Manual) 1.1 K/mm3 (0.0-0.8) H 05/22/19 06:25 Eosinophils # (Manual) 0.7 K/mm3 (0.0-0.4) H 05/22/19 06:25 Basophils # (Manual) 0.0 K/mm3 (0.0-0.1) 05/22/19 06:25 Metamyelocytes # 0.1 K/mm3 05/22/19 06:25 Myelocytes # 0.0 K/mm3 05/22/19 06:25 Promyelocytes # 0.0 K/mm3 05/22/19 06:25 Blast Cells # 0.0 K/mm3 05/22/19 06:25 WBC Morphology Not Reportable 05/22/19 06:25 Hypersegmented Neuts Not Reportable 05/22/19 06:25 Hyposegmented Neuts Not Reportable 05/22/19 06:25 Hypogranular Neuts Not Reportable 05/22/19 06:25 Smudge Cells Not Reportable 05/22/19 06:25 Toxic Granulation Not Reportable 05/22/19 06:25 Toxic Vacuolation Not Reportable 05/22/19 06:25 Dohle Bodies Not Reportable 05/22/19 06:25 Pelger-Huet Anomaly Not Reportable 05/22/19 06:25 Renea Rods Not Reportable 05/22/19 06:25 Platelet Estimate Consistent w auto 05/22/19 06:25 Clumped Platelets Not Reportable 05/22/19 06:25 Plt Clumps, EDTA Not Reportable 05/22/19 06:25 Large Platelets Not Reportable 05/22/19 06:25 Giant Platelets Not Reportable 05/22/19 06:25 Platelet Satelliting Not Reportable 05/22/19 06:25 Plt Morphology Comment Not Reportable 05/22/19 06:25 RBC Morphology Not Reportable 05/22/19 06:25 Dimorphic RBCs Not Reportable 05/22/19 06:25 Polychromasia Not Reportable 05/22/19 06:25 Hypochromasia Few 05/22/19 06:25 Poikilocytosis Not Reportable 05/22/19 06:25 Anisocytosis Not Reportable 05/22/19 06:25 Microcytosis Not Reportable 05/22/19 06:25 Macrocytosis Not Reportable 05/22/19 06:25 Spherocytes Not Reportable 05/22/19 06:25 Pappenheimer Bodies Not Reportable 05/22/19 06:25 Sickle Cells Not Reportable 05/22/19 06:25 Target Cells Not Reportable 05/22/19 06:25 Tear Drop Cells Not Reportable 05/22/19 06:25 Ovalocytes Few 05/22/19 06:25 Stomatocytes Few 05/22/19 06:25 Helmet Cells Not Reportable 05/22/19 06:25 [place] Bodies Not Reportable 05/22/19 06:25 [place] Rings Not Reportable 05/22/19 06:25 Dennis Cells Not Reportable 05/22/19 06:25 Bite Cells Not Reportable 05/22/19 06:25 Crenated Cell Not Reportable 05/22/19 06:25 Elliptocytes Not Reportable 05/22/19 06:25 Acanthocytes (Spur) Not Reportable 05/22/19 06:25 Rouleaux Not Reportable 05/22/19 06:25 Hemoglobin C Crystals Not Reportable 05/22/19 06:25 Schistocytes Few 05/22/19 06:25 Malaria parasites Not Reportable 05/22/19 06:25 Syed Bodies Not Reportable 05/22/19 06:25 Hem Pathologist Commnt No 05/22/19 06:25 PT 15.4 Sec. (12.2-14.9) H 05/01/19 Unknown INR 1.23 (0.87-1.13) H 05/01/19 Unknown APTT 22.7 Sec. (24.2-36.6) L 05/01/19 Unknown POC ABG pH 7.295 (7.35-7.45) L 05/26/19 04:13 ABG pH 7.281 pH Units (7.350-7.450) L 05/20/19 05:48 POC ABG pCO2 56.5 (35-45) H 05/26/19 04:13 ABG pCO2 52.0 mm Hg 05/20/19 05:48 POC ABG pO2 63 (80-105) L 05/26/19 04:13 ABG pO2 78.7 mm Hg (80.0-90.0) L 05/20/19 05:48 POC ABG HCO3 27.5 (22-26 mml/L) 05/26/19 04:13 ABG HCO3 24.0 mmol/L (20.0-26.0) 05/20/19 05:48 POC ABG Total CO2 29 (23-27mmol/L) 05/26/19 04:13 POC ABG O2 Sat 88 05/26/19 04:13 ABG O2 Saturation 94.5 % (95.0-99.0) L 05/20/19 05:48 ABG O2 Content 13.0 (0.0-44) 05/20/19 05:48 POC ABG Base Excess 1 ((-2) - (+3)mmol/L) 05/26/19 04:13 ABG Base Excess -3.0 mmol/L (-2.0-3.0) L 05/20/19 05:48 ABG Hemoglobin 9.9 gm/dl (14.0-18.0) L 05/20/19 05:48 ABG Carboxyhemoglobin 1.6 % (0.0-5.0) 05/20/19 05:48 ABG Methemoglobin 0.6 % (0.0-1.5) 05/20/19 05:48 Oxyhemoglobin 92.5 % (95.0-99.0) L 05/20/19 05:48 FiO2 50 % 05/26/19 04:13 Sodium 136 mmol/L (137-145) L 05/26/19 05:00 Potassium 4.4 mmol/L (3.6-5.0) 05/26/19 05:00 Chloride 95.3 mmol/L (98-107) L 05/26/19 05:00 Carbon Dioxide 23 mmol/L (22-30) 05/26/19 05:00 Anion Gap 22 mmol/L 05/26/19 05:00 BUN 96 mg/dL (9-20) H 05/26/19 05:00 Creatinine 6.5 mg/dL (0.8-1.5) H 05/26/19 05:00 Estimated GFR 12 ml/min 05/26/19 05:00 BUN/Creatinine Ratio 15 % 05/26/19 05:00 Glucose 108 mg/dL (75-100) H 05/26/19 05:00 POC Glucose 84 (70-105) 05/26/19 11:42 Osmolality 327 Mosm/kg 05/07/19 13:45 Uric Acid 18.0 mg/dL (3.5-7.6) H 05/07/19 13:45 Calcium 7.6 mg/dL (8.4-10.2) L 05/26/19 05:00 Phosphorus 4.90 mg/dL (2.5-4.5) H 05/02/19 00:06 Magnesium 2.30 mg/dL (1.7-2.3) 05/02/19 00:06 Total Bilirubin 0.20 mg/dL (0.1-1.2) 05/10/19 05:00 AST 34 units/L (5-40) 05/10/19 05:00 ALT 35 units/L (7-56) 05/10/19 05:00 Alkaline Phosphatase 45 units/L (35-129) 05/10/19 05:00 Total Creatine Kinase 131 units/L (55-170) 05/02/19 04:41 CK-MB (CK-2) 5.2 ng/mL (0.0-4.0) H 05/02/19 04:41 CK-MB (CK-2) Rel Index 3.9 (0-4) 05/02/19 04:41 Troponin T 0.067 ng/mL (0.00-0.029) H D 05/02/19 04:41 NT-Pro-B Natriuret Pep 6831 pg/mL (0-450) H 05/01/19 Unknown Total Protein 6.1 g/dL (6.3-8.2) L 05/10/19 05:00 Albumin 2.5 g/dL (3.9-5) L 05/10/19 05:00 Albumin/Globulin Ratio 0.7 % 05/10/19 05:00 Triglycerides 173 mg/dL (2-149) H 05/17/19 Unknown Cholesterol 173 mg/dL (50-199) 05/02/19 00:06 LDL Cholesterol Direct 126 mg/dL (50-130) 05/02/19 00:06 HDL Cholesterol 18 mg/dL (40-59) L 05/02/19 00:06 Cholesterol/HDL Ratio 9.61 % 05/02/19 00:06 Procalcitonin 0.54 ng/mL (<0.15) 05/03/19 11:52 Urine Color Yellow (Yellow) 05/20/19 12:00 Urine Turbidity Cloudy (Clear) 05/20/19 12:00 Urine pH 5.0 (5.0-7.0) 05/20/19 12:00 Ur Specific Keller 1.015 (1.003-1.030) 05/20/19 12:00 Urine Protein 30 mg/dl mg/dL (Negative) 05/20/19 12:00 Urine Glucose (UA) Neg mg/dL (Negative) 05/20/19 12:00 Urine Ketones Neg mg/dL (Negative) 05/20/19 12:00 Urine Blood Lg (Negative) 05/20/19 12:00 Urine Nitrite Neg (Negative) 05/20/19 12:00 Urine Bilirubin Neg (Negative) 05/20/19 12:00 Urine Urobilinogen < 2.0 mg/dL (<2.0) 05/20/19 12:00 Ur Leukocyte Esterase Mod (Negative) 05/20/19 12:00 Urine WBC (Auto) 26.0 /HPF (0.0-6.0) H 05/20/19 12:00 Urine RBC (Auto) 83.0 /HPF (0.0-6.0) 05/20/19 12:00 Urine Bacteria (Auto) 1+ /HPF (Negative) 05/20/19 12:00 Uric Acid Crystals 3+ 05/03/19 10:55 Urine Mucus Few /HPF 05/20/19 12:00 Urine Yeast (Budding) 3+ /HPF 05/20/19 12:00 Urine Creatinine 292.8 mg/dL (0.1-20.0) H 05/07/19 22:40 Urine Sodium 11 mmol/L 05/07/19 22:40 Urine Total Protein 269 mg/dL (5-11.8) H 05/07/19 22:40 Vancomycin Trough 20.5 ug/mL (5.0-20.0) H 05/15/19 09:00 Random Vancomycin 14.0 ug/mL (0-40.0) 05/21/19 05:20 AMNA Screen Negative (Negative) 05/07/19 13:45 Hepatitis A IgM Ab Non-reactive (NonReactive) 05/07/19 13:45 Hep Bs Antigen Non-reactive (Negative) 05/07/19 13:45 Hep B Core IgM Ab Non-reactive (NonReactive) 05/07/19 13:45 Hepatitis C Antibody Non-reactive (NonReactive) 05/07/19 13:45 Active Medications - Current Medications Current Medications: Generic Name Dose Route Start Last Admin Trade Name Christopher PRN Reason Stop Dose Admin Acetaminophen 650 mg 05/01/19 22:46 05/26/19 04:55 Tylenol PO 650 mg Q4H PRN Administration Pain MILD(1-3)/Fever >100.5/FREEMAN Albumin Human 25 gm 05/19/19 10:47 Alburx 25% (Albumin) IV ARIANE PRN Hypotension Alteplase, Recombinant 2 mg 05/25/19 09:30 05/25/19 09:21 Cathflo IV 2 mg ARIANE PRN Administration LINE FLUSH Lipase/Protease/Amylase 1 each 05/14/19 15:01 Pancreaze 10,500 Unit FEEDTUBE PRN PRN For Clogged Feeding Tube Dextrose 50 gm 05/01/19 20:24 D50w (25gm) Vial IV Q30MIN PRN Hypoglycemia Protocol Enoxaparin Sodium 30 mg 05/16/19 10:00 05/26/19 09:42 Enoxaparin SUB-Q 30 mg QDAY VICKEY Administration Epoetin Hugo 10,000 unit 05/19/19 10:47 Procrit IV ARIANE PRN hemodialysis Famotidine 20 mg 05/16/19 10:00 05/26/19 09:41 Pepcid PO 20 mg DAILY VICKEY Administration Hydralazine HCl 20 mg 05/13/19 08:09 05/14/19 18:09 Apresoline IV 20 mg Q4HR PRN Administration SBP >/=160 Hydrophilic Ointment 1 applic 05/01/19 21:14 Vaseline Lip Therapy TP Q2HR PRN Dry Lips Fentanyl Citrate 2,000 mcg in 100 mls @ 10.195 mls/hr 05/01/19 22:00 05/26/19 13:34 Fentanyl Drip Premix IV 2 mcg/kg/hr TITR VICKEY 20.39 mls/hr Administration Protocol 1 MCG/KG/HR Propofol 1,000 mg in 100 mls @ 7.011 mls/hr 05/03/19 04:00 05/25/19 04:01 Diprivan 10 Mg/Ml IV 5 mcg/kg/min TITR VICKEY 7.011 mls/hr Titration Protocol 5 MCG/KG/MIN Norepinephrine 4 mg in 250 mls @ 7.5 mls/hr 05/03/19 18:00 05/20/19 08:04 Levophed Drip 4 Mg/Ns 250 Ml IV 0 mcg/min TITR VICKEY 0 mls/hr Titration Protocol 2 MCG/MIN Sodium Chloride 500 mls @ 10 mls/hr 05/06/19 15:00 Nacl 0.9% 500 Ml IV DIRECT VICKEY Nicardipine HCl 50 mg/ Sodium 250 mls @ 25 mls/hr 05/13/19 10:00 05/14/19 23:12 Chloride IV 0 mg/hr TITR VICKEY 0 mls/hr Titration Protocol 5 MG/HR Sodium Chloride 100 mls @ 999 mls/hr 05/19/19 10:47 05/20/19 08:14 Nacl 0.9% IV 999 mls/hr ARIANE PRN Administration Hypotension Fluconazole 200 mg in 100 mls @ 100 mls/hr 05/24/19 15:00 05/26/19 14:29 Diflucan IV 100 mls/hr Q24H VICKEY Administration Protocol Levofloxacin/Dextrose 500 mg in 100 mls @ 100 mls/hr 05/25/19 17:00 05/25/19 17:37 Levaquin 500mg/100ml IV 100 mls/hr Q48H VICKEY Administration Protocol Linezolid 600 mg in 300 mls @ 300 mls/hr 05/25/19 22:00 05/26/19 09:42 Zyvox 600mg/300ml IV 300 mls/hr Q12HR VICKEY Administration Protocol Labetalol HCl 100 mg 05/14/19 14:00 05/26/19 14:28 Labetalol PO 100 mg Q8HR VICKEY Administration Levetiracetam 750 mg 05/13/19 10:00 05/26/19 09:41 Keppra PO 750 mg BID VICKEY Administration Lorazepam 2 mg 05/06/19 06:22 05/10/19 16:17 Ativan IV 2 mg Q4H PRN Administration Seizures/AGITATION Multi-Ingred Cream/Lotion/Oil/Oint 1 applic 05/01/19 21:14 Artificial Tears Ophth Oint OU Q4HR PRN Dry Eye(s) Ondansetron HCl 4 mg 05/01/19 22:46 Zofran IV Q8H PRN Nausea And Vomiting Scopolamine 1 each 05/20/19 12:00 05/20/19 12:52 Transderm-Scop TD 1 each Q72HR VICKEY Administration Simple Syrup 15 ml 05/14/19 15:01 Simple Syrup FEEDTUBE PRN PRN Hypoglycemia Simple Syrup 30 ml 05/14/19 15:01 Simple Syrup FEEDTUBE PRN PRN Hypoglycemia Sodium Bicarbonate 325 mg 05/14/19 15:01 Sodium Bicarbonate FEEDTUBE PRN PRN For Clogged Feeding Tube Sodium Chloride 10 ml 05/02/19 10:00 05/26/19 09:49 Sodium Chloride Flush Syringe 10 Ml IV 10 ml BID VICKEY Administration Sodium Chloride 10 ml 05/01/19 22:46 05/05/19 02:28 Sodium Chloride Flush Syringe 10 Ml IV 10 ml PRN PRN Administration LINE FLUSH Nutrition/Malnutrition Assess - Dietary Evaluation Nutrition/Malnutrition Findings: Nutrition Notes Start: 05/04/19 12:54 Freq: Status: Active Protocol: Document 05/21/19 10:08 LM (Rec: 05/21/19 10:26 LM -[email or web address]) Nutrition Notes Initial or Follow up Reassessment Current Diagnosis Acute Kidney Injury,Sepsis, Respiratory Failure Current Diet Nepro 1.8 at 50 ml/hr Labs/Tests Na 137 BUN 102 Cr 7 BG 103 Pertinent Medications Propofol at 7.011 ml/hr (185 kcal) Height 6 ft 4 in Weight 261.4 kg [place] Body Weight (kg) 91.81 BMI 70.1 Weight change and time frame Wt change noted. Likely due to fluid Weight Status Morbidly Obese Subjective/Other Information Nepro running at 50 ml/hr at time of visit. Will keep flush at 150 ml q4h until Na increases. Pt received HD on 05/20. Pt tolerating TF. Percent of energy/protein needs met: 86%/43% Burn Absent Trauma Absent Current % PO Negligible Minimum of two criteria No physical signs of malnutrition #1 Nutrition Diagnosis Inadequate oral intake Diagnosis Progress(for reassessment Continues documentation) Is patient on ventilator? Yes Is Patient Ambulatory and/or Out of Bed No REE-([facility]-confined to bed) 4392.636 Kcal/Kg value to use for calculation 11 Approximate Energy Requirements Using 2875 kcal/Kg Calculation Used for Recommendations Kcal/kg Additional Notes Energy needs: 2503 kcal PRO needs: 225 g (up to 2.5 g/ kg 91.81 IBW) Fluid needs: 1 ml/kcal Nutrition Intervention Change Diet Order: Continue TF Nutrition Support: Nepro 1.8 at 50 ml/hr flush 150 ml q4hr for hyponatremia flush 200 ml q4h once hyponatremia resolves Kcal 2,160 Protein (gm) 97 Fluid (mL) 872 Goal #1 TF tolerance Goal #2 Meet at least 75% kcal/PRO needs via TF Anticipated Discharge Needs: Unable to determine at this time Follow-Up By: 05/28/19 Additional Comments F/U for TF tolerance/Na lab
--- NOTE | 2019-05-26 20:27 | Progress Note ---
Assessment and Plan Assessment: * Oliguric acute kidney injury attributed to vancomycin toxicity * Acute hypoxic/hypercapneic respiratory failure * Generalized edema * Azotemia * Metabolic acidosis * Anemia * Morbid obesity Plan: * No evidence of renal recovery - continue hemodialysis - TTS and prn * BUN in 90s despite HD yesterday - will increase treatment time to 4h and adjust Qb/Qd. * May require more frequent dialysis for fluid removal/solute clearance * Vent management per pulmonary medicine * Abx/antifungal per ID - currently on IV fluconazole * Continue antiHTN medications * Dose medications for renal function * Avoid nephrotoxins Subjective Date of service: 05/26/19 Principal diagnosis: HF; acute hypoxemic resp failure, SIRS, CARLA Interval history: No acute events Objective - Vital Signs Vital signs: Vital Signs - 12hr 05/26/19 05/26/19 05/26/19 08:30 08:45 09:00 Temperature Pulse Rate 85 95 H 101 H Pulse Rate [ From Monitor] Respiratory 14 12 17 Rate Blood Pressure 117/50 112/56 116/62 O2 Sat by Pulse 94 94 92 Oximetry 05/26/19 05/26/19 05/26/19 09:15 09:30 09:45 Temperature Pulse Rate 105 H 106 H 97 H Pulse Rate [ From Monitor] Respiratory 13 17 15 Rate Blood Pressure 115/42 120/51 120/50 O2 Sat by Pulse 94 93 93 Oximetry 05/26/19 05/26/19 05/26/19 10:00 10:15 10:30 Temperature Pulse Rate 93 H 82 83 Pulse Rate [ From Monitor] Respiratory 16 10 L 9 L Rate Blood Pressure 113/52 118/47 116/46 O2 Sat by Pulse 91 93 95 Oximetry 05/26/19 05/26/19 05/26/19 10:45 11:00 11:15 Temperature Pulse Rate 83 84 82 Pulse Rate [ From Monitor] Respiratory 6 L 8 L 13 Rate Blood Pressure 119/51 121/54 123/54 O2 Sat by Pulse 94 94 94 Oximetry 05/26/19 05/26/19 05/26/19 11:30 11:45 12:00 Temperature 100.5 F H Pulse Rate 82 85 95 H Pulse Rate [ From Monitor] Respiratory 10 L 9 L 18 Rate Blood Pressure 118/54 116/51 129/65 O2 Sat by Pulse 94 95 93 Oximetry 05/26/19 05/26/19 05/26/19 12:15 12:29 12:30 Temperature Pulse Rate 92 H 88 86 Pulse Rate [ From Monitor] Respiratory 16 12 Rate Blood Pressure 123/56 125/59 125/59 O2 Sat by Pulse 93 94 94 Oximetry 05/26/19 05/26/19 05/26/19 12:45 13:00 13:15 Temperature Pulse Rate 84 82 81 Pulse Rate [ From Monitor] Respiratory 10 L 12 14 Rate Blood Pressure 109/48 116/49 115/50 O2 Sat by Pulse 94 94 94 Oximetry 05/26/19 05/26/19 05/26/19 13:30 13:45 14:00 Temperature Pulse Rate 81 82 81 Pulse Rate [ From Monitor] Respiratory 12 12 14 Rate Blood Pressure 115/51 118/53 118/51 O2 Sat by Pulse 94 93 94 Oximetry 05/26/19 05/26/19 05/26/19 14:15 14:28 14:30 Temperature Pulse Rate 81 82 81 Pulse Rate [ From Monitor] Respiratory 13 10 L Rate Blood Pressure 117/53 117/53 117/50 O2 Sat by Pulse 94 95 Oximetry 05/26/19 05/26/19 05/26/19 14:45 15:00 15:15 Temperature Pulse Rate 91 H 89 90 Pulse Rate [ From Monitor] Respiratory 16 13 15 Rate Blood Pressure 123/54 118/52 116/51 O2 Sat by Pulse 92 93 93 Oximetry 05/26/19 05/26/19 05/26/19 15:30 15:45 16:00 Temperature 101.5 F H Pulse Rate 80 80 80 Pulse Rate [ From Monitor] Respiratory 11 L 11 L 14 Rate Blood Pressure 108/44 114/48 113/54 O2 Sat by Pulse 94 98 100 Oximetry 05/26/19 05/26/19 05/26/19 16:15 16:29 16:30 Temperature Pulse Rate 78 95 H 97 H Pulse Rate [ From Monitor] Respiratory 8 L 15 Rate Blood Pressure 111/51 116/54 116/54 O2 Sat by Pulse 95 94 93 Oximetry 05/26/19 05/26/19 05/26/19 16:45 17:00 17:15 Temperature Pulse Rate 102 H 96 H 103 H Pulse Rate [ From Monitor] Respiratory 16 16 18 Rate Blood Pressure 116/54 117/45 125/46 O2 Sat by Pulse 100 90 87 Oximetry 05/26/19 05/26/19 05/26/19 17:30 17:45 18:00 Temperature Pulse Rate 90 105 H 90 Pulse Rate [ From Monitor] Respiratory 13 20 15 Rate Blood Pressure 108/43 132/73 111/50 O2 Sat by Pulse 88 89 90 Oximetry 05/26/19 05/26/19 05/26/19 18:15 18:30 18:45 Temperature Pulse Rate 86 86 87 Pulse Rate [ From Monitor] Respiratory 12 0 L 5 L Rate Blood Pressure 107/50 113/53 121/55 O2 Sat by Pulse 92 92 94 Oximetry 05/26/19 05/26/19 05/26/19 19:00 19:15 19:30 Temperature Pulse Rate 88 95 H 86 Pulse Rate [ From Monitor] Respiratory 7 L 11 L 14 Rate Blood Pressure 123/54 133/63 117/48 O2 Sat by Pulse 93 95 95 Oximetry 05/26/19 05/26/19 19:45 20:00 Temperature 100.4 F H Pulse Rate 86 88 Pulse Rate [ 94 H From Monitor] Respiratory 16 10 L Rate Blood Pressure 116/46 116/50 O2 Sat by Pulse 96 96 Oximetry - General Appearance General appearance: obese, intubated EENT: ATNC, other (ETT in place) Neck: other (unable to appreciate JVD due to habitus) Respiratory: Present: Decreased Breath Sounds Cardiology: regular, S1S2 Gastrointestinal: hypoactive bowel sounds, obese Musculoskeletal: other (generalized edema) - Lab 05/26/19 05:00 05/26/19 05:00 Most recent lab results ABG pH 7.281 pH Units (7.350-7.450) L 05/20/19 05:48 ABG pCO2 52.0 mm Hg 05/20/19 05:48 ABG pO2 78.7 mm Hg (80.0-90.0) L 05/20/19 05:48 ABG HCO3 24.0 mmol/L (20.0-26.0) 05/20/19 05:48 ABG O2 Saturation 94.5 % (95.0-99.0) L 05/20/19 05:48 Calcium 7.6 mg/dL (8.4-10.2) L 05/26/19 05:00 Phosphorus 4.90 mg/dL (2.5-4.5) H 05/02/19 00:06 Magnesium 2.30 mg/dL (1.7-2.3) 05/02/19 00:06 Urine Creatinine 292.8 mg/dL (0.1-20.0) H 05/07/19 22:40 Urine Sodium 11 mmol/L 05/07/19 22:40 Urine Total Protein 269 mg/dL (5-11.8) H 05/07/19 22:40 Medications & Allergies - Medications Allergies/Adverse Reactions: Allergies No Known Allergies Allergy (Verified 05/01/19 20:27) Home Medications: Home Medications Medication Instructions Recorded Confirmed Last Taken Type No Known Home Medications [No 05/03/19 05/03/19 Unknown History Reported Home Medications] Active Medications: Generic Name Dose Route Start Last Admin Trade Name Freq PRN Reason Stop Dose Admin Acetaminophen 650 mg 05/01/19 22:46 05/26/19 18:59 Tylenol PO 650 mg Q4H PRN Administration Pain MILD(1-3)/Fever >100.5/FREEMAN Albumin Human 25 gm 05/19/19 10:47 Alburx 25% (Albumin) IV ARIANE PRN Hypotension Alteplase, Recombinant 2 mg 05/25/19 09:30 05/25/19 09:21 Cathflo IV 2 mg ARIANE PRN Administration LINE FLUSH Lipase/Protease/Amylase 1 each 05/14/19 15:01 Pancreaze 10,500 Unit FEEDTUBE PRN PRN For Clogged Feeding Tube Dextrose 50 gm 05/01/19 20:24 D50w (25gm) Vial IV Q30MIN PRN Hypoglycemia Protocol Enoxaparin Sodium 30 mg 05/16/19 10:00 05/26/19 09:42 Enoxaparin SUB-Q 30 mg QDAY VICKEY Administration Epoetin Hugo 10,000 unit 05/19/19 10:47 Procrit IV ARIANE PRN hemodialysis Famotidine 20 mg 05/16/19 10:00 05/26/19 09:41 Pepcid PO 20 mg DAILY VICKEY Administration Hydralazine HCl 20 mg 05/13/19 08:09 05/14/19 18:09 Apresoline IV 20 mg Q4HR PRN Administration SBP >/=160 Hydrophilic Ointment 1 applic 05/01/19 21:14 Vaseline Lip Therapy TP Q2HR PRN Dry Lips Fentanyl Citrate 2,000 mcg in 100 mls @ 10.195 mls/hr 05/01/19 22:00 05/26/19 17:10 Fentanyl Drip Premix IV 2 mcg/kg/hr TITR VICKEY 20.39 mls/hr Administration Protocol 1 MCG/KG/HR Propofol 1,000 mg in 100 mls @ 7.011 mls/hr 05/03/19 04:00 05/25/19 04:01 Diprivan 10 Mg/Ml IV 5 mcg/kg/min TITR VICKEY 7.011 mls/hr Titration Protocol 5 MCG/KG/MIN Norepinephrine 4 mg in 250 mls @ 7.5 mls/hr 05/03/19 18:00 05/20/19 08:04 Levophed Drip 4 Mg/Ns 250 Ml IV 0 mcg/min TITR VICKEY 0 mls/hr Titration Protocol 2 MCG/MIN Sodium Chloride 500 mls @ 10 mls/hr 05/06/19 15:00 Nacl 0.9% 500 Ml IV DIRECT VICKEY Nicardipine HCl 50 mg/ Sodium 250 mls @ 25 mls/hr 05/13/19 10:00 05/14/19 23:12 Chloride IV 0 mg/hr TITR VICKEY 0 mls/hr Titration Protocol 5 MG/HR Sodium Chloride 100 mls @ 999 mls/hr 05/19/19 10:47 05/20/19 08:14 Nacl 0.9% IV 999 mls/hr ARIANE PRN Administration Hypotension Fluconazole 200 mg in 100 mls @ 100 mls/hr 05/24/19 15:00 05/26/19 14:29 Diflucan IV 100 mls/hr Q24H VICKEY Administration Protocol Levofloxacin/Dextrose 500 mg in 100 mls @ 100 mls/hr 05/25/19 17:00 05/25/19 17:37 Levaquin 500mg/100ml IV 100 mls/hr Q48H VICKEY Administration Protocol Linezolid 600 mg in 300 mls @ 300 mls/hr 05/25/19 22:00 05/26/19 09:42 Zyvox 600mg/300ml IV 300 mls/hr Q12HR VICKEY Administration Protocol Labetalol HCl 100 mg 05/14/19 14:00 05/26/19 14:28 Labetalol PO 100 mg Q8HR VICKEY Administration Levetiracetam 750 mg 05/13/19 10:00 05/26/19 09:41 Keppra PO 750 mg BID VICKEY Administration Lorazepam 2 mg 05/06/19 06:22 05/10/19 16:17 Ativan IV 2 mg Q4H PRN Administration Seizures/AGITATION Multi-Ingred Cream/Lotion/Oil/Oint 1 applic 05/01/19 21:14 Artificial Tears Ophth Oint OU Q4HR PRN Dry Eye(s) Ondansetron HCl 4 mg 05/01/19 22:46 Zofran IV Q8H PRN Nausea And Vomiting Scopolamine 1 each 05/20/19 12:00 05/20/19 12:52 Transderm-Scop TD 1 each Q72HR VICKEY Administration Simple Syrup 15 ml 05/14/19 15:01 Simple Syrup FEEDTUBE PRN PRN Hypoglycemia Simple Syrup 30 ml 05/14/19 15:01 Simple Syrup FEEDTUBE PRN PRN Hypoglycemia Sodium Bicarbonate 325 mg 05/14/19 15:01 Sodium Bicarbonate FEEDTUBE PRN PRN For Clogged Feeding Tube Sodium Chloride 10 ml 05/02/19 10:00 05/26/19 09:49 Sodium Chloride Flush Syringe 10 Ml IV 10 ml BID VICKEY Administration Sodium Chloride 10 ml 05/01/19 22:46 05/05/19 02:28 Sodium Chloride Flush Syringe 10 Ml IV 10 ml PRN PRN Administration LINE FLUSH
[2019-05-26] MEDS ORDERED: SODIUM CHLORIDE 0.9% 100 ML IV PRN (21:32)
[2019-05-26] MEDS ORDERED: ALBUMIN HUMAN 25% (25 GM/100 ML) INJ IV PRN (21:33)
--- NOTE | 2019-05-27 01:26 | Event Note ---
Date: 05/27/19 (ETT Change) Called to ICU 253 for ETT change because of cuff rupture. Pt not sedated because hospital ran out of propofol?? Meds: Propofol 15ml + 10ml given Using Glidescope, ETT changed over a bougie 8.0 OETT @ 24 cm. BBS/CO2. Considerable secretions in ETT
--- NOTE | 2019-05-27 02:03 | XRay Report ---
CHEST 1 VIEW INDICATION: Replaced OETT COMPARISON: 05/19/2019 FINDINGS: Support devices: Unchanged. Heart: Enlarged but stable Lungs/Pleura: Interstitial edema and left pleural effusion appear to have resolved. There is still pl eural-parenchymal disease in the right base, quite possibly including right middle lobe atelectasis. IMPRESSION: 1. Resolved left lung disease. Persistent pleural-parenchymal disease in the right base. Signer Name: Angel Kenyon MD Signed: 05/27/2019 1:58 AM Workstation Name: [id number]
[2019-05-27] MEDS: fentaNYL DRIP Premix 2,000 MCG/100 ML BAG IV SCH ×6 (02:48→21:05)
[2019-05-27 05:38] LABS: ABG Base Excess -1.9 mmol/L (-2.0-3.0); ABG HCO3 24.9 mmol/L (20.0-26.0); ABG Methemoglobin 0.5 % (0.0-1.5); ABG PCO2 53.7 mm Hg; ABG PH 7.284 pH Units (7.350-7.450); ABG PO2 71.6 mm Hg (80.0-90.0)
[2019-05-27] MEDS: LINEZOLID 600 MG/300 ML BAG IV SCH ×2 (07:32→19:44)
[2019-05-27] MEDS: levETIRAcetam 500 MG/5 ML ORAL LIQD PO SCH ×2 (09:47→21:09)
[2019-05-27] MEDS: FAMOTIDINE 20 MG TAB PO SCH (09:47)
[2019-05-27] MEDS: ENOXAPARIN 30 MG/0.3 ML INJ SUB-Q SCH (09:47)
[2019-05-27] MEDS ORDERED: WATER FOR INJ Sterile (PF) 10 ML ONE (10:39)
[2019-05-27] MEDS: ALTEPLASE 2 MG INJ IV PRN ×2 (10:49→10:50)
--- NOTE | 2019-05-27 11:13 | Progress Note ---
Assessment and Plan Cultures: Blood cultures 05/11/19: no growth thus far Blood cultures 05/18/19 pending Sputum culture 05/11/19: no growth thus far urine culture: no growth resp culture: no growth Blood culture 05/18/2019: no growth thus far urine culture 05/20/2019: normal skin shandra, Jarad albicans sputum culture 05/20/2019: Jarad albicans Blood culture 05/23/2019: no growth A/P: 34-year-old male with obesity admitted with: #Fever, SIRS with shock: shock resolved, intermittently febrile. Initially felt to be ?aspiration related. Apparently was using CPAP. Persistent febrile again, likely ?UTI. Repeat UA showed pyuria, had indwelling Han which was removed again 05/20. Urine culture with normal skin shandra. Fevers now recurred since 05/17. Should eval for worsening pneumonia, sinusitis, but unable to fit in CT scan. candiduria also generally does not require treatment, but in this patient with recurrent fever, reasonable to consider a trial of fluconazole renally adjusted. ?drug fever, given eosinophilia. #Diffuse rash with eosinophilia: abx classes were changed on 05/25/2019. #Acute hypoxic hypercapneic respiratory failure, possibly obesity hypoventilation syndrome: on the vent. Pulmonary managing. jarad in sputum does not need treatment, it almost never causes a pneumonia and is reflective of colonization, overgrowth in the setting of abx use #Morbid obesity #CARLA: creatinine elevated. dose abx accordingly. Now on HD via vascath #Elevated LFTs: RUQ US showed fatty liver, small GB sludge. Improving. #Acute encephalopathy with ?seizure activity: persistent fevers. Has been receiving empiric meningitis coverage #UTI: s/p han removal on 05/20 Recs: - patient with persistent fevers and evidence of eosinophilia with rash. Suspect drug fever. We had switched abx classes on 05/25/2019, with no evidence of new infectious process, will stop abx - Ok for steroids from ID standpoint for eosinophilia and drug rash Burke Wilks MD, FACP [facility] ([facility]) C: [phone] O: [phone] F: [phone] Subjective Date of service: 05/27/19 Principal diagnosis: HF; acute hypoxemic resp failure, SIRS, CARLA Interval history: Had ET tube exchange due to cuff issues. Low grade temperatures. Otherwise stable, remains intubated, on the vent. Rash + Objective - Exam Narrative Exam: Physical Exam: Constitutional: sedated, intubated. Morbid obesity Head, Ears, Nose: Normocephalic, atraumatic. External ears, nose normal Eyes: Conjunctivae/corneas clear. No icterus. No ptosis. Neck: intubated Oral: intubated Cardiovascular: S1, S2 normal. Respiratory: Good air entry, clear to auscultation bilaterally GI: Soft, non-tender; bowel sounds normal. No peritoneal signs Musculoskeletal: No pedal edema, no cyanosis. Skin: diffuse erythematous rash + Hem/Lymphatic: No palpable cervical or supraclavicular nodes. No lymphangitis Psych: no agitation Neurological: sedated, intubated, on vent - Constitutional Vitals: Vital Signs Temp Pulse Resp BP Pulse Ox 100.0 F H 81 17 119/47 93 05/27/19 08:00 05/27/19 10:30 05/27/19 10:30 05/27/19 10:30 05/27/19 10:30 Temperature -Last 24 Hours Temperature 100.0 F Temperature 99.9 F Temperature 99.6 F Temperature 99.6 F Temperature 100.9 F Temperature 100.4 F Temperature 101.5 F Temperature 100.5 F - Labs CBC & Chem 7: 05/26/19 05:00 05/26/19 05:00 Labs: Abnormal lab results 05/27/19 Range/Units 04:48 ABG pH 7.284 L (7.350-7.450) pH Units ABG pO2 71.6 L (80.0-90.0) mm Hg ABG O2 Saturation 92.0 L (95.0-99.0) % ABG Hemoglobin 7.7 L (14.0-18.0) gm/dl Oxyhemoglobin 89.9 L (95.0-99.0) % - Imaging and cardiology Chest x-ray: report reviewed, image reviewed (poor quality film, no significant change noted)
--- NOTE | 2019-05-27 11:15 | Progress Note ---
Assessment and Plan Assessment and plan: Patient is a 34-year-old man who is morbidly obese (575 lbs) with unknown medical history who presented to [facility] ED on 05/01/2019 (I started seeing patient for the first time on 05/20/19, Day 19) with SOB. He was placed on BIPAP and failed. He had a cardiac arrest in ED and was Intubated in ED. On 05/12/19- ETT exchanged due to hypoxia. In the chart there is a report that he has undiagnosis LANDON and using someone else CPAP. 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 Acute hypoxic and hypercapenic respiratory failure on vent >96hrs Status post intubation, continue sedation, consulted pulmonary And input noted still on high PEEP, making Tracheostomy difficult to attempt. Electromechanic managing. Obesity Hypoventilation syndrome Patient previously on LANDON Management at home but per discussion with family, was non complaint Sepsis- not present on admission -On abx, ID following. LP when able ?Meningitis considering recurrent fever. Doubt, but ID following Acylovir stopped ?seizure activity -Meninigitis prophy -Neurology consult -EEG-negative Acute CHF, new onset, diastolic Diurese with IV lasix held, on HD now monitor I/O, daily weights Cardiology following. Added beta-jenny, no TIM inhibitor secondary to renal insufficiency Hypertension malignant Start antihypertensive, monitor blood pressure IV hydralazine as needed for further control Acute kidney injury due to ATN ?Vancomycin toxicity, Held. Monitor Nephrology following and input noted. Han for strict I/Os HD per nephrology Hyperkalemia-Kaylexate Passive congestive hepatic syndrome -LFT elevated but trending down -Noted Gallbladder sludge DVT prophylaxis with Lovenox Extreme obesity, bmi 70.1 Full code status. Prognosis guarded +han removed +ETT +NGT +Fentanyl and Diprivan RUE PICC right IJ vasc catheter placed on off levaphed since morning, 05/20/2019 received HD drool, with increased secretion, scopolamine patch applied ?trach consideration, intubated since admission 05/01/19==>still too high PEEP for trach, ?PEG consideration Still febrile since 05/03/19, Patient unable to fit in scanner so CT of head sinus, chest will not happen. I spoke with his mother Magalis Jay on Saturday May 25, 2019 at [phone], her answered the phone but he is not James' father. She came to the phone. She appeared to be crying, she says she has the FLU. no family present Issues today, ETT tube rupture, change tube, ?ran out of Diprivan, still febrile. The right neck IJ vas Catheter dsg needs changing. Bladder scan pending History Interval history: Patient was seen and examined. Follow-up on current diagnosis of Respiratory failure. Overnight uneventful. Imaging, nursing note, chart, labs and old chart reviewed. Still intubated and sedated. Hospitalist Physical - Physical exam Narrative exam: Gen: critically ill, bmi 70.1 sedated HEENT: NCAT, OP ETT in place Neck: supple, no adenopathy, no thyromegaly, no JVD CVS/Heart: tachycardiac, normal S1S2, pulses present bilaterally Chest/Lungs: tachypneic, Symmetrical chest expansion, good air entry bilateral ly GI/Abdomen: soft, NTND, good bowel sounds, no guarding or rebound : scrotal edema, unable to see his penis Extermity/Skin: good skin turgor MSK: sedated Neuro: sedated Psych: sedated - Constitutional Vitals: Temp Pulse Resp BP Pulse Ox 100.0 F H 81 17 119/47 93 05/27/19 08:00 05/27/19 10:30 05/27/19 10:30 05/27/19 10:30 05/27/19 10:30 General appearance: Present: no acute distress Results - Labs CBC & Chem 7: 05/26/19 05:00 05/26/19 05:00 Labs: Laboratory Last Values WBC 8.1 K/mm3 (4.5-11.0) 05/26/19 05:00 RBC 3.10 M/mm3 (3.65-5.03) L 05/26/19 05:00 Hgb 8.4 gm/dl (11.8-15.2) L 05/26/19 05:00 Hct 26.0 % (35.5-45.6) L 05/26/19 05:00 MCV 84 fl (84-94) 05/26/19 05:00 MCH 27 pg (28-32) L 05/26/19 05:00 MCHC 32 % (32-34) 05/26/19 05:00 RDW 17.4 % (13.2-15.2) H 05/26/19 05:00 Plt Count 247 K/mm3 (140-440) 05/26/19 05:00 Lymph % (Auto) 7.9 % (13.4-35.0) L 05/18/19 01:50 [place] % (Auto) 16.2 % (0.0-7.3) H 05/22/19 06:25 Eos % (Auto) 10.8 % (0.0-4.3) H 05/22/19 06:25 Baso % (Auto) 0.2 % (0.0-1.8) 05/18/19 01:50 Lymph # 0.7 K/mm3 (1.2-5.4) L 05/18/19 01:50 [place] # 1.3 K/mm3 (0.0-0.8) H 05/22/19 06:25 Eos # 0.9 K/mm3 (0.0-0.4) H 05/22/19 06:25 Baso # 0.0 K/mm3 (0.0-0.1) 05/22/19 06:25 Add Manual Diff Complete 05/22/19 06:25 Total Counted 100 05/22/19 06:25 Seg Neutrophils % 65.5 % (40.0-70.0) 05/22/19 06:25 Seg Neuts % (Manual) 65.0 % (40.0-70.0) 05/22/19 06:25 Band Neutrophils % 3.0 % 05/22/19 06:25 Lymphocytes % (Manual) 10.0 % (13.4-35.0) L 05/22/19 06:25 Reactive Lymphs % (Man) 0 % 05/22/19 06:25 Monocytes % (Manual) 13.0 % (0.0-7.3) H 05/22/19 06:25 Eosinophils % (Manual) 8.0 % (0.0-4.3) H 05/22/19 06:25 Basophils % (Manual) 0 % (0.0-1.8) 05/22/19 06:25 Metamyelocytes % 1.0 % 05/22/19 06:25 Myelocytes % 0 % 05/22/19 06:25 Promyelocytes % 0 % 05/22/19 06:25 Blast Cells % 0 % 05/22/19 06:25 Nucleated RBC % Not Reportable 05/22/19 06:25 Seg Neutrophils # 5.3 K/mm3 (1.8-7.7) 05/22/19 06:25 Seg Neutrophils # Man 5.6 K/mm3 (1.8-7.7) 05/22/19 06:25 Band Neutrophils # 0.3 K/mm3 05/22/19 06:25 Lymphocytes # (Manual) 0.9 K/mm3 (1.2-5.4) L 05/22/19 06:25 Abs React Lymphs (Man) 0.0 K/mm3 05/22/19 06:25 Monocytes # (Manual) 1.1 K/mm3 (0.0-0.8) H 05/22/19 06:25 Eosinophils # (Manual) 0.7 K/mm3 (0.0-0.4) H 05/22/19 06:25 Basophils # (Manual) 0.0 K/mm3 (0.0-0.1) 05/22/19 06:25 Metamyelocytes # 0.1 K/mm3 05/22/19 06:25 Myelocytes # 0.0 K/mm3 05/22/19 06:25 Promyelocytes # 0.0 K/mm3 05/22/19 06:25 Blast Cells # 0.0 K/mm3 05/22/19 06:25 WBC Morphology Not Reportable 05/22/19 06:25 Hypersegmented Neuts Not Reportable 05/22/19 06:25 Hyposegmented Neuts Not Reportable 05/22/19 06:25 Hypogranular Neuts Not Reportable 05/22/19 06:25 Smudge Cells Not Reportable 05/22/19 06:25 Toxic Granulation Not Reportable 05/22/19 06:25 Toxic Vacuolation Not Reportable 05/22/19 06:25 Dohle Bodies Not Reportable 05/22/19 06:25 Pelger-Huet Anomaly Not Reportable 05/22/19 06:25 Renea Rods Not Reportable 05/22/19 06:25 Platelet Estimate Consistent w auto 05/22/19 06:25 Clumped Platelets Not Reportable 05/22/19 06:25 Plt Clumps, EDTA Not Reportable 05/22/19 06:25 Large Platelets Not Reportable 05/22/19 06:25 Giant Platelets Not Reportable 05/22/19 06:25 Platelet Satelliting Not Reportable 05/22/19 06:25 Plt Morphology Comment Not Reportable 05/22/19 06:25 RBC Morphology Not Reportable 05/22/19 06:25 Dimorphic RBCs Not Reportable 05/22/19 06:25 Polychromasia Not Reportable 05/22/19 06:25 Hypochromasia Few 05/22/19 06:25 Poikilocytosis Not Reportable 05/22/19 06:25 Anisocytosis Not Reportable 05/22/19 06:25 Microcytosis Not Reportable 05/22/19 06:25 Macrocytosis Not Reportable 05/22/19 06:25 Spherocytes Not Reportable 05/22/19 06:25 Pappenheimer Bodies Not Reportable 05/22/19 06:25 Sickle Cells Not Reportable 05/22/19 06:25 Target Cells Not Reportable 05/22/19 06:25 Tear Drop Cells Not Reportable 05/22/19 06:25 Ovalocytes Few 05/22/19 06:25 Stomatocytes Few 05/22/19 06:25 Helmet Cells Not Reportable 05/22/19 06:25 [place] Bodies Not Reportable 05/22/19 06:25 [place] Rings Not Reportable 05/22/19 06:25 Dennis Cells Not Reportable 05/22/19 06:25 Bite Cells Not Reportable 05/22/19 06:25 Crenated Cell Not Reportable 05/22/19 06:25 Elliptocytes Not Reportable 05/22/19 06:25 Acanthocytes (Spur) Not Reportable 05/22/19 06:25 Rouleaux Not Reportable 05/22/19 06:25 Hemoglobin C Crystals Not Reportable 05/22/19 06:25 Schistocytes Few 05/22/19 06:25 Malaria parasites Not Reportable 05/22/19 06:25 Syed Bodies Not Reportable 05/22/19 06:25 Hem Pathologist Commnt No 05/22/19 06:25 PT 15.4 Sec. (12.2-14.9) H 05/01/19 Unknown INR 1.23 (0.87-1.13) H 05/01/19 Unknown APTT 22.7 Sec. (24.2-36.6) L 05/01/19 Unknown POC ABG pH 7.295 (7.35-7.45) L 05/26/19 04:13 ABG pH 7.284 pH Units (7.350-7.450) L 05/27/19 04:48 POC ABG pCO2 56.5 (35-45) H 05/26/19 04:13 ABG pCO2 53.7 mm Hg 05/27/19 04:48 POC ABG pO2 63 (80-105) L 05/26/19 04:13 ABG pO2 71.6 mm Hg (80.0-90.0) L 05/27/19 04:48 POC ABG HCO3 27.5 (22-26 mml/L) 05/26/19 04:13 ABG HCO3 24.9 mmol/L (20.0-26.0) 05/27/19 04:48 POC ABG Total CO2 29 (23-27mmol/L) 05/26/19 04:13 POC ABG O2 Sat 88 05/26/19 04:13 ABG O2 Saturation 92.0 % (95.0-99.0) L 05/27/19 04:48 ABG O2 Content 9.9 (0.0-44) 05/27/19 04:48 POC ABG Base Excess 1 ((-2) - (+3)mmol/L) 05/26/19 04:13 ABG Base Excess -1.9 mmol/L (-2.0-3.0) 05/27/19 04:48 ABG Hemoglobin 7.7 gm/dl (14.0-18.0) L 05/27/19 04:48 ABG Carboxyhemoglobin 1.8 % (0.0-5.0) 05/27/19 04:48 ABG Methemoglobin 0.5 % (0.0-1.5) 05/27/19 04:48 Oxyhemoglobin 89.9 % (95.0-99.0) L 05/27/19 04:48 FiO2 40 % 05/27/19 04:48 Sodium 136 mmol/L (137-145) L 05/26/19 05:00 Potassium 4.4 mmol/L (3.6-5.0) 05/26/19 05:00 Chloride 95.3 mmol/L (98-107) L 05/26/19 05:00 Carbon Dioxide 23 mmol/L (22-30) 05/26/19 05:00 Anion Gap 22 mmol/L 05/26/19 05:00 BUN 96 mg/dL (9-20) H 05/26/19 05:00 Creatinine 6.5 mg/dL (0.8-1.5) H 05/26/19 05:00 Estimated GFR 12 ml/min 05/26/19 05:00 BUN/Creatinine Ratio 15 % 05/26/19 05:00 Glucose 108 mg/dL (75-100) H 05/26/19 05:00 POC Glucose 84 (70-105) 05/26/19 11:42 Osmolality 327 Mosm/kg 05/07/19 13:45 Uric Acid 18.0 mg/dL (3.5-7.6) H 05/07/19 13:45 Calcium 7.6 mg/dL (8.4-10.2) L 05/26/19 05:00 Phosphorus 4.90 mg/dL (2.5-4.5) H 05/02/19 00:06 Magnesium 2.30 mg/dL (1.7-2.3) 05/02/19 00:06 Total Bilirubin 0.20 mg/dL (0.1-1.2) 05/10/19 05:00 AST 34 units/L (5-40) 05/10/19 05:00 ALT 35 units/L (7-56) 05/10/19 05:00 Alkaline Phosphatase 45 units/L (35-129) 05/10/19 05:00 Total Creatine Kinase 131 units/L (55-170) 05/02/19 04:41 CK-MB (CK-2) 5.2 ng/mL (0.0-4.0) H 05/02/19 04:41 CK-MB (CK-2) Rel Index 3.9 (0-4) 05/02/19 04:41 Troponin T 0.067 ng/mL (0.00-0.029) H D 05/02/19 04:41 NT-Pro-B Natriuret Pep 6831 pg/mL (0-450) H 05/01/19 Unknown Total Protein 6.1 g/dL (6.3-8.2) L 05/10/19 05:00 Albumin 2.5 g/dL (3.9-5) L 05/10/19 05:00 Albumin/Globulin Ratio 0.7 % 05/10/19 05:00 Triglycerides 173 mg/dL (2-149) H 05/17/19 Unknown Cholesterol 173 mg/dL (50-199) 05/02/19 00:06 LDL Cholesterol Direct 126 mg/dL (50-130) 05/02/19 00:06 HDL Cholesterol 18 mg/dL (40-59) L 05/02/19 00:06 Cholesterol/HDL Ratio 9.61 % 05/02/19 00:06 Procalcitonin 0.54 ng/mL (<0.15) 05/03/19 11:52 Urine Color Yellow (Yellow) 05/20/19 12:00 Urine Turbidity Cloudy (Clear) 05/20/19 12:00 Urine pH 5.0 (5.0-7.0) 05/20/19 12:00 Ur Specific [place] 1.015 (1.003-1.030) 05/20/19 12:00 Urine Protein 30 mg/dl mg/dL (Negative) 05/20/19 12:00 Urine Glucose (UA) Neg mg/dL (Negative) 05/20/19 12:00 Urine Ketones Neg mg/dL (Negative) 05/20/19 12:00 Urine Blood Lg (Negative) 05/20/19 12:00 Urine Nitrite Neg (Negative) 05/20/19 12:00 Urine Bilirubin Neg (Negative) 05/20/19 12:00 Urine Urobilinogen < 2.0 mg/dL (<2.0) 05/20/19 12:00 Ur Leukocyte Esterase Mod (Negative) 05/20/19 12:00 Urine WBC (Auto) 26.0 /HPF (0.0-6.0) H 05/20/19 12:00 Urine RBC (Auto) 83.0 /HPF (0.0-6.0) 05/20/19 12:00 Urine Bacteria (Auto) 1+ /HPF (Negative) 05/20/19 12:00 Uric Acid Crystals 3+ 05/03/19 10:55 Urine Mucus Few /HPF 05/20/19 12:00 Urine Yeast (Budding) 3+ /HPF 05/20/19 12:00 Urine Creatinine 292.8 mg/dL (0.1-20.0) H 05/07/19 22:40 Urine Sodium 11 mmol/L 05/07/19 22:40 Urine Total Protein 269 mg/dL (5-11.8) H 05/07/19 22:40 Vancomycin Trough 20.5 ug/mL (5.0-20.0) H 05/15/19 09:00 Random Vancomycin 11.5 ug/mL (0-40.0) 05/27/19 06:00 AMNA Screen Negative (Negative) 05/07/19 13:45 Hepatitis A IgM Ab Non-reactive (NonReactive) 05/07/19 13:45 Hep Bs Antigen Non-reactive (Negative) 05/07/19 13:45 Hep B Core IgM Ab Non-reactive (NonReactive) 05/07/19 13:45 Hepatitis C Antibody Non-reactive (NonReactive) 05/07/19 13:45 Active Medications - Current Medications Current Medications: Generic Name Dose Route Start Last Admin Trade Name Freq PRN Reason Stop Dose Admin Acetaminophen 650 mg 05/01/19 22:46 05/26/19 18:59 Tylenol PO 650 mg Q4H PRN Administration Pain MILD(1-3)/Fever >100.5/FREEMAN Albumin Human 25 gm 05/19/19 10:47 Alburx 25% (Albumin) IV ARIANE PRN Hypotension Alteplase, Recombinant 2 mg 05/25/19 09:30 05/27/19 10:50 Cathflo IV 2 mg ARIANE PRN Administration LINE FLUSH Lipase/Protease/Amylase 1 each 05/14/19 15:[address] 10,500 Unit FEEDTUBE PRN PRN For Clogged Feeding Tube Dextrose 50 gm 05/01/19 20:24 D50w (25gm) Vial IV Q30MIN PRN Hypoglycemia Protocol Enoxaparin Sodium 30 mg 05/16/19 10:00 05/27/19 09:47 Enoxaparin SUB-Q 30 mg QDAY VICKEY Administration Epoetin [place] 10,000 unit 05/19/19 10:47 Procrit IV ARIANE PRN hemodialysis Famotidine 20 mg 05/16/19 10:00 05/27/19 09:47 Pepcid PO 20 mg DAILY VICKEY Administration Hydralazine HCl 20 mg 05/13/19 08:09 05/14/19 18:09 Apresoline IV 20 mg Q4HR PRN Administration SBP >/=160 Hydrophilic Ointment 1 applic 05/01/19 21:14 Vaseline Lip Therapy TP Q2HR PRN Dry Lips Fentanyl Citrate 2,000 mcg in 100 mls @ 10.195 mls/hr 05/01/19 22:00 05/27/19 10:18 Fentanyl Drip Premix IV 2 mcg/kg/hr TITR VICKEY 20.39 mls/hr Administration Protocol 1 MCG/KG/HR Propofol 1,000 mg in 100 mls @ 7.011 mls/hr 05/03/19 04:00 05/27/19 07:58 Diprivan 10 Mg/Ml IV 10 mcg/kg/min TITR VICKEY 14.022 mls/hr Titration Protocol 5 MCG/KG/MIN Norepinephrine 4 mg in 250 mls @ 7.5 mls/hr 05/03/19 18:00 05/20/19 08:04 Levophed Drip 4 Mg/Ns 250 Ml IV 0 mcg/min TITR VICKEY 0 mls/hr Titration Protocol 2 MCG/MIN Sodium Chloride 500 mls @ 10 mls/hr 05/06/19 15:00 Nacl 0.9% 500 Ml IV DIRECT VICKEY Nicardipine HCl 50 mg/ Sodium 250 mls @ 25 mls/hr 05/13/19 10:00 05/14/19 23:12 Chloride IV 0 mg/hr TITR VICKEY 0 mls/hr Titration Protocol 5 MG/HR Sodium Chloride 100 mls @ 999 mls/hr 05/19/19 10:47 05/20/19 08:14 Nacl 0.9% IV 999 mls/hr ARIANE PRN Administration Hypotension Fluconazole 200 mg in 100 mls @ 100 mls/hr 05/24/19 15:00 05/26/19 14:29 Diflucan IV 100 mls/hr Q24H VICKEY Administration Protocol Levofloxacin/Dextrose 500 mg in 100 mls @ 100 mls/hr 05/25/19 17:00 05/25/19 17:37 Levaquin 500mg/100ml IV 100 mls/hr Q48H VICKEY Administration Protocol Linezolid 600 mg in 300 mls @ 300 mls/hr 05/25/19 22:00 05/27/19 07:32 Zyvox 600mg/300ml IV Not Given Q12HR VICKEY Protocol Labetalol HCl 100 mg 05/14/19 14:00 05/27/19 05:51 Labetalol PO 100 mg Q8HR VICKEY Administration Levetiracetam 750 mg 05/13/19 10:00 05/27/19 09:47 Keppra PO 750 mg BID VICKEY Administration Lorazepam 2 mg 05/06/19 06:22 05/10/19 16:17 Ativan IV 2 mg Q4H PRN Administration Seizures/AGITATION Multi-Ingred Cream/Lotion/Oil/Oint 1 applic 05/01/19 21:14 Artificial Tears Ophth Oint OU Q4HR PRN Dry Eye(s) Ondansetron HCl 4 mg 05/01/19 22:46 Zofran IV Q8H PRN Nausea And Vomiting Scopolamine 1 each 05/20/19 12:00 05/20/19 12:52 Transderm-Scop TD 1 each Q72HR VICKEY Administration Simple Syrup 15 ml 05/14/19 15:01 Simple Syrup FEEDTUBE PRN PRN Hypoglycemia Simple Syrup 30 ml 05/14/19 15:01 Simple Syrup FEEDTUBE PRN PRN Hypoglycemia Sodium Bicarbonate 325 mg 05/14/19 15:01 Sodium Bicarbonate FEEDTUBE PRN PRN For Clogged Feeding Tube Sodium Chloride 10 ml 05/02/19 10:00 05/27/19 09:48 Sodium Chloride Flush Syringe 10 Ml IV 10 ml BID VICKEY Administration Sodium Chloride 10 ml 05/01/19 22:46 05/05/19 02:28 Sodium Chloride Flush Syringe 10 Ml IV 10 ml PRN PRN Administration LINE FLUSH Nutrition/Malnutrition Assess - Dietary Evaluation Nutrition/Malnutrition Findings: Nutrition Notes Start: 05/04/19 12:54 Freq: Status: Active Protocol: Document 05/21/19 10:08 LM (Rec: 05/21/19 10:26 LM [id number]) Nutrition Notes Initial or Follow up Reassessment Current Diagnosis Acute Kidney Injury,Sepsis, Respiratory Failure Current Diet Nepro 1.8 at 50 ml/hr Labs/Tests Na 137 BUN 102 Cr 7 BG 103 Pertinent Medications Propofol at 7.011 ml/hr (185 kcal) Height 6 ft 4 in Weight 261.4 kg [place] Body Weight (kg) 91.81 BMI 70.1 Weight change and time frame Wt change noted. Likely due to fluid Weight Status Morbidly Obese Subjective/Other Information Nepro running at 50 ml/hr at time of visit. Will keep flush at 150 ml q4h until Na increases. Pt received HD on 05/20. Pt tolerating TF. Percent of energy/protein needs met: 86%/43% Burn Absent Trauma Absent Current % PO Negligible Minimum of two criteria No physical signs of malnutrition #1 Nutrition Diagnosis Inadequate oral intake Diagnosis Progress(for reassessment Continues documentation) Is patient on ventilator? Yes Is Patient Ambulatory and/or Out of Bed No REE-([facility]-confined to bed) 4392.636 Kcal/Kg value to use for calculation 11 Approximate Energy Requirements Using 2875 kcal/Kg Calculation Used for Recommendations Kcal/kg Additional Notes Energy needs: 2503 kcal PRO needs: 225 g (up to 2.5 g/ kg 91.81 IBW) Fluid needs: 1 ml/kcal Nutrition Intervention Change Diet Order: Continue TF Nutrition Support: Nepro 1.8 at 50 ml/hr flush 150 ml q4hr for hyponatremia flush 200 ml q4h once hyponatremia resolves Kcal 2,160 Protein (gm) 97 Fluid (mL) 872 Goal #1 TF tolerance Goal #2 Meet at least 75% kcal/PRO needs via TF Anticipated Discharge Needs: Unable to determine at this time Follow-Up By: 05/28/19 Additional Comments F/U for TF tolerance/Na lab
--- NOTE | 2019-05-27 12:19 | Progress Note ---
Subjective Date of service: 05/27/19 Principal diagnosis: HF; acute hypoxemic resp failure, SIRS, CARLA Interval history: s/p right IJ vascath insertion patient with recurrent fevers, WBC nl vascath intact with soiled dressing due to patient's obesity difficult to keep dry no obvious purulent drainage or erythema around insertion site nursing to start changing dressing every shift spoke with Nephrology who patient to require assisted dialysis and suitable for permcath insertion at some point they will attempt line holiday after dialysis and plan for permcath insertion in the OR on Friday if fevers stop otherwise will plan to replace vascath Objective - Constitutional Vitals: Vital Signs - 12hr 05/27/19 05/27/19 05/27/19 00:15 00:30 00:45 Temperature Pulse Rate 75 89 94 H Pulse Rate [ From Monitor] Respiratory 11 L 11 L 19 Rate Blood Pressure 106/42 128/50 107/40 O2 Sat by Pulse 97 92 97 Oximetry 05/27/19 05/27/19 05/27/19 01:00 01:15 01:29 Temperature Pulse Rate 97 H 100 H 82 Pulse Rate [ From Monitor] Respiratory 16 17 Rate Blood Pressure 110/59 116/44 101/35 O2 Sat by Pulse 91 94 96 Oximetry 05/27/19 05/27/19 05/27/19 01:30 01:45 02:00 Temperature Pulse Rate 81 Pulse Rate [ From Monitor] Respiratory 0 L Rate Blood Pressure 101/35 113/47 125/58 O2 Sat by Pulse 95 92 94 Oximetry 05/27/19 05/27/19 05/27/19 02:15 02:30 02:45 Temperature Pulse Rate 93 H 87 90 Pulse Rate [ From Monitor] Respiratory 12 13 16 Rate Blood Pressure 113/69 115/61 117/69 O2 Sat by Pulse 93 Oximetry 05/27/19 05/27/19 05/27/19 03:00 03:15 03:30 Temperature Pulse Rate 88 92 H 88 Pulse Rate [ From Monitor] Respiratory 22 25 H 22 Rate Blood Pressure 118/64 128/54 123/53 O2 Sat by Pulse 92 89 90 Oximetry 05/27/19 05/27/19 05/27/19 03:45 04:00 04:15 Temperature 99.9 F H Pulse Rate 90 87 86 Pulse Rate [ 89 From Monitor] Respiratory 25 H 25 H 25 H Rate Blood Pressure 120/53 119/49 121/50 O2 Sat by Pulse 91 92 93 Oximetry 05/27/19 05/27/19 05/27/19 04:30 04:45 04:48 Temperature Pulse Rate 86 88 91 H Pulse Rate [ From Monitor] Respiratory 26 H 25 H Rate Blood Pressure 122/51 121/50 127/60 O2 Sat by Pulse 90 93 94 Oximetry 05/27/19 05/27/19 05/27/19 05:01 05:15 05:30 Temperature Pulse Rate 93 H 98 H Pulse Rate [ From Monitor] Respiratory 18 15 Rate Blood Pressure 110/50 126/62 120/49 O2 Sat by Pulse 91 Oximetry 05/27/19 05/27/19 05/27/19 05:45 05:51 06:00 Temperature Pulse Rate 86 87 85 Pulse Rate [ From Monitor] Respiratory 14 24 Rate Blood Pressure 120/52 120/52 112/43 O2 Sat by Pulse 90 86 Oximetry 05/27/19 05/27/19 05/27/19 06:15 06:30 06:45 Temperature Pulse Rate 81 82 81 Pulse Rate [ From Monitor] Respiratory 25 H 25 H 25 H Rate Blood Pressure 111/44 115/45 123/44 O2 Sat by Pulse 87 87 91 Oximetry 05/27/19 05/27/19 05/27/19 07:00 07:15 07:30 Temperature Pulse Rate 81 80 79 Pulse Rate [ From Monitor] Respiratory 26 H 25 H 25 H Rate Blood Pressure 120/49 119/46 118/47 O2 Sat by Pulse 87 90 93 Oximetry 05/27/19 05/27/19 05/27/19 07:45 08:00 08:15 Temperature 100.0 F H Pulse Rate 82 83 79 Pulse Rate [ 84 From Monitor] Respiratory 25 H 19 25 H Rate Blood Pressure 112/46 113/50 113/45 O2 Sat by Pulse 90 91 95 Oximetry 05/27/19 05/27/19 05/27/19 08:30 08:37 08:45 Temperature Pulse Rate 78 81 79 Pulse Rate [ From Monitor] Respiratory 25 H 25 H Rate Blood Pressure 108/45 111/44 110/50 O2 Sat by Pulse 96 87 95 Oximetry 05/27/19 05/27/19 05/27/19 09:00 09:15 09:30 Temperature Pulse Rate 80 77 78 Pulse Rate [ From Monitor] Respiratory 25 H 25 H 25 H Rate Blood Pressure 111/46 104/42 107/47 O2 Sat by Pulse 94 96 94 Oximetry 05/27/19 05/27/19 05/27/19 09:45 10:00 10:15 Temperature Pulse Rate 81 82 81 Pulse Rate [ From Monitor] Respiratory 24 25 H 19 Rate Blood Pressure 106/42 114/41 108/41 O2 Sat by Pulse 94 93 93 Oximetry 05/27/19 05/27/19 05/27/19 10:30 10:45 11:01 Temperature Pulse Rate 81 85 93 H Pulse Rate [ From Monitor] Respiratory 17 14 12 Rate Blood Pressure 119/47 112/43 104/34 O2 Sat by Pulse 93 92 90 Oximetry 05/27/19 05/27/19 05/27/19 11:15 11:30 11:45 Temperature Pulse Rate 81 79 78 Pulse Rate [ From Monitor] Respiratory 0 L 0 L 0 L Rate Blood Pressure 114/48 109/37 110/40 O2 Sat by Pulse 95 95 95 Oximetry 05/27/19 12:00 Temperature Pulse Rate 79 Pulse Rate [ 84 From Monitor] Respiratory 0 L Rate Blood Pressure 109/39 O2 Sat by Pulse 96 Oximetry - Labs CBC & Chem 7: 05/26/19 05:00 05/26/19 05:00 Labs: Abnormal lab results 05/27/19 Range/Units 04:48 ABG pH 7.284 L (7.350-7.450) pH Units ABG pO2 71.6 L (80.0-90.0) mm Hg ABG O2 Saturation 92.0 L (95.0-99.0) % ABG Hemoglobin 7.7 L (14.0-18.0) gm/dl Oxyhemoglobin 89.9 L (95.0-99.0) % Medications & Allergies - Medications Allergies/Adverse Reactions: Allergies No Known Allergies Allergy (Verified 05/01/19 20:27) Home Medications: Home Medications Medication Instructions Recorded Confirmed Last Taken Type No Known Home Medications [No 05/03/19 05/03/19 Unknown History Reported Home Medications] Active Medications: Generic Name Dose Route Start Last Admin Trade Name Freq PRN Reason Stop Dose Admin Acetaminophen 650 mg 05/01/19 22:46 05/26/19 18:59 Tylenol PO 650 mg Q4H PRN Administration Pain MILD(1-3)/Fever >100.5/FREEMAN Albumin Human 25 gm 05/19/19 10:47 Alburx 25% (Albumin) IV ARIANE PRN Hypotension Alteplase, Recombinant 2 mg 05/25/19 09:30 05/27/19 10:50 Cathflo IV 2 mg ARIANE PRN Administration LINE FLUSH Lipase/Protease/Amylase 1 each 05/14/19 15:[address] 10,500 Unit FEEDTUBE PRN PRN For Clogged Feeding Tube Dextrose 50 gm 05/01/19 20:24 D50w (25gm) Vial IV Q30MIN PRN Hypoglycemia Protocol Enoxaparin Sodium 30 mg 05/16/19 10:00 05/27/19 09:47 Enoxaparin SUB-Q 30 mg QDAY VICKEY Administration Epoetin Hugo 10,000 unit 05/19/19 10:47 Procrit IV ARIANE PRN hemodialysis Famotidine 20 mg 05/16/19 10:00 05/27/19 09:47 Pepcid PO 20 mg DAILY VICKEY Administration Hydralazine HCl 20 mg 05/13/19 08:09 05/14/19 18:09 Apresoline IV 20 mg Q4HR PRN Administration SBP >/=160 Hydrophilic Ointment 1 applic 05/01/19 21:14 Vaseline Lip Therapy TP Q2HR PRN Dry Lips Fentanyl Citrate 2,000 mcg in 100 mls @ 10.195 mls/hr 05/01/19 22:00 05/27/19 10:18 Fentanyl Drip Premix IV 2 mcg/kg/hr TITR VICKEY 20.39 mls/hr Administration Protocol 1 MCG/KG/HR Propofol 1,000 mg in 100 mls @ 7.011 mls/hr 05/03/19 04:00 05/27/19 07:58 Diprivan 10 Mg/Ml IV 10 mcg/kg/min TITR VICKEY 14.022 mls/hr Titration Protocol 5 MCG/KG/MIN Norepinephrine 4 mg in 250 mls @ 7.5 mls/hr 05/03/19 18:00 05/20/19 08:04 Levophed Drip 4 Mg/Ns 250 Ml IV 0 mcg/min TITR VICKEY 0 mls/hr Titration Protocol 2 MCG/MIN Sodium Chloride 500 mls @ 10 mls/hr 05/06/19 15:00 Nacl 0.9% 500 Ml IV DIRECT VICKEY Nicardipine HCl 50 mg/ Sodium 250 mls @ 25 mls/hr 05/13/19 10:00 05/14/19 23:12 Chloride IV 0 mg/hr TITR VICKEY 0 mls/hr Titration Protocol 5 MG/HR Sodium Chloride 100 mls @ 999 mls/hr 05/19/19 10:47 05/20/19 08:14 Nacl 0.9% IV 999 mls/hr ARIANE PRN Administration Hypotension Labetalol HCl 100 mg 05/14/19 14:00 05/27/19 05:51 Labetalol PO 100 mg Q8HR VICKEY Administration Levetiracetam 750 mg 05/13/19 10:00 05/27/19 09:47 Keppra PO 750 mg BID VICKEY Administration Lorazepam 2 mg 05/06/19 06:22 05/10/19 16:17 Ativan IV 2 mg Q4H PRN Administration Seizures/AGITATION Multi-Ingred Cream/Lotion/Oil/Oint 1 applic 05/01/19 21:14 Artificial Tears Ophth Oint OU Q4HR PRN Dry Eye(s) Ondansetron HCl 4 mg 05/01/19 22:46 Zofran IV Q8H PRN Nausea And Vomiting Scopolamine 1 each 05/20/19 12:00 05/20/19 12:52 Transderm-Scop TD 1 each Q72HR VICKEY Administration Simple Syrup 15 ml 05/14/19 15:01 Simple Syrup FEEDTUBE PRN PRN Hypoglycemia Simple Syrup 30 ml 05/14/19 15:01 Simple Syrup FEEDTUBE PRN PRN Hypoglycemia Sodium Bicarbonate 325 mg 05/14/19 15:01 Sodium Bicarbonate FEEDTUBE PRN PRN For Clogged Feeding Tube Sodium Chloride 10 ml 05/02/19 10:00 05/27/19 09:48 Sodium Chloride Flush Syringe 10 Ml IV 10 ml BID VICKEY Administration Sodium Chloride 10 ml 05/01/19 22:46 05/05/19 02:28 Sodium Chloride Flush Syringe 10 Ml IV 10 ml PRN PRN Administration LINE FLUSH
--- NOTE | 2019-05-27 15:21 | Progress Note ---
Assessment and Plan 34 y/o male with acute hypoxic, hypercapnic respiratory failure currently ventilated and sedated, now with persistent fevers and seizure and on HD No new recs for today. 1. ID: Patient unable to fit in scanner so CT of head sinus, chest will not happen. ID has placed back on renally adjusted Vanc. he has grown out jarad from urine and a tracheal aspirate 2. Pulm: FIO2 now @ 40%. ABG was good. Will wean after HD today. Can start to come down on PEEP. Will drop to 16 starting tomorrow. 3. Renal: HD per renal, will need permacath per vascular notes if patient can be afebrile. 4. Day number of 23 of intubation. 5. Trying to avoid trach as much as possible. He is on his fourth week of i ntubation. However still requiring high levels of PEEP. At this point, once weaned to normal PEEP levels, hoping that we can extubate. CCT 31 minutes. Subjective Date of service: 05/27/19 Principal diagnosis: HF; acute hypoxemic resp failure, SIRS, CARLA Interval history: ET tube had to be changed again last night after another blown cuff. Stable on 40% and 19 of PEEP. Currently on HD. Objective Vital Signs - 12hr 05/27/19 05/27/19 05/27/19 03:30 03:45 04:00 Temperature 99.9 F H Pulse Rate 88 90 87 Pulse Rate [ 89 From Monitor] Respiratory 22 25 H 25 H Rate Blood Pressure 123/53 120/53 119/49 O2 Sat by Pulse 90 91 92 Oximetry 05/27/19 05/27/19 05/27/19 04:15 04:30 04:45 Temperature Pulse Rate 86 86 88 Pulse Rate [ From Monitor] Respiratory 25 H 26 H 25 H Rate Blood Pressure 121/50 122/51 121/50 O2 Sat by Pulse 93 90 93 Oximetry 05/27/19 05/27/19 05/27/19 04:48 05:01 05:15 Temperature Pulse Rate 91 H 93 H Pulse Rate [ From Monitor] Respiratory 18 Rate Blood Pressure 127/60 110/50 126/62 O2 Sat by Pulse 94 Oximetry 05/27/19 05/27/19 05/27/19 05:30 05:45 05:51 Temperature Pulse Rate 98 H 86 87 Pulse Rate [ From Monitor] Respiratory 15 14 Rate Blood Pressure 120/49 120/52 120/52 O2 Sat by Pulse 91 90 Oximetry 05/27/19 05/27/19 05/27/19 06:00 06:15 06:30 Temperature Pulse Rate 85 81 82 Pulse Rate [ From Monitor] Respiratory 24 25 H 25 H Rate Blood Pressure 112/43 111/44 115/45 O2 Sat by Pulse 86 87 87 Oximetry 05/27/19 05/27/19 05/27/19 06:45 07:00 07:15 Temperature Pulse Rate 81 81 80 Pulse Rate [ From Monitor] Respiratory 25 H 26 H 25 H Rate Blood Pressure 123/44 120/49 119/46 O2 Sat by Pulse 91 87 90 Oximetry 05/27/19 05/27/19 05/27/19 07:30 07:45 08:00 Temperature 100.0 F H Pulse Rate 79 82 83 Pulse Rate [ 84 From Monitor] Respiratory 25 H 25 H 19 Rate Blood Pressure 118/47 112/46 113/50 O2 Sat by Pulse 93 90 91 Oximetry 05/27/19 05/27/19 05/27/19 08:15 08:30 08:37 Temperature Pulse Rate 79 78 81 Pulse Rate [ From Monitor] Respiratory 25 H 25 H Rate Blood Pressure 113/45 108/45 111/44 O2 Sat by Pulse 95 96 87 Oximetry 05/27/19 05/27/19 05/27/19 08:45 09:00 09:15 Temperature Pulse Rate 79 80 77 Pulse Rate [ From Monitor] Respiratory 25 H 25 H 25 H Rate Blood Pressure 110/50 111/46 104/42 O2 Sat by Pulse 95 94 96 Oximetry 05/27/19 05/27/19 05/27/19 09:30 09:45 10:00 Temperature Pulse Rate 78 81 82 Pulse Rate [ From Monitor] Respiratory 25 H 24 25 H Rate Blood Pressure 107/47 106/42 114/41 O2 Sat by Pulse 94 94 93 Oximetry 05/27/19 05/27/19 05/27/19 10:15 10:30 10:45 Temperature Pulse Rate 81 81 85 Pulse Rate [ From Monitor] Respiratory 19 17 14 Rate Blood Pressure 108/41 119/47 112/43 O2 Sat by Pulse 93 93 92 Oximetry 05/27/19 05/27/19 05/27/19 11:01 11:15 11:30 Temperature Pulse Rate 93 H 81 79 Pulse Rate [ From Monitor] Respiratory 12 0 L 0 L Rate Blood Pressure 104/34 114/48 109/37 O2 Sat by Pulse 90 95 95 Oximetry 05/27/19 05/27/19 05/27/19 11:45 12:00 12:10 Temperature 100.0 F H Pulse Rate 78 79 81 Pulse Rate [ 84 From Monitor] Respiratory 0 L 0 L Rate Blood Pressure 110/40 109/39 109/39 O2 Sat by Pulse 95 96 96 Oximetry 05/27/19 05/27/19 05/27/19 12:15 12:30 12:45 Temperature Pulse Rate 78 90 91 H Pulse Rate [ From Monitor] Respiratory 0 L 15 15 Rate Blood Pressure 105/42 127/54 124/56 O2 Sat by Pulse 97 93 94 Oximetry 05/27/19 05/27/19 05/27/19 13:00 13:13 13:15 Temperature Pulse Rate 91 H 92 H 88 Pulse Rate [ From Monitor] Respiratory 22 8 L Rate Blood Pressure 126/57 126/57 126/48 O2 Sat by Pulse 92 94 Oximetry 05/27/19 05/27/19 05/27/19 13:30 13:45 14:00 Temperature 99.5 F Pulse Rate 81 80 78 Pulse Rate [ From Monitor] Respiratory 0 L 13 25 H Rate Blood Pressure 115/35 107/37 113/35 O2 Sat by Pulse 92 94 96 Oximetry 05/27/19 05/27/19 05/27/19 14:10 14:15 14:30 Temperature Pulse Rate 150 H 78 76 Pulse Rate [ From Monitor] Respiratory Rate Blood Pressure 119/42 120/41 117/38 O2 Sat by Pulse Oximetry 05/27/19 05/27/19 05/27/19 14:45 15:00 15:15 Temperature Pulse Rate 76 74 73 Pulse Rate [ From Monitor] Respiratory Rate Blood Pressure 118/35 118/41 114/39 O2 Sat by Pulse Oximetry Constitutional: other (morbidly obese male, sedated on vent, orally intubated) Eyes: non-icteric ENT: oropharynx moist Neck: other (extremely large in circumference) Effort: normal Ascultation: Bilateral: diminished breath sounds (secondary to body habitus) Cardiovascular: regular rate and rhythm (no mrg) Gastrointestinal: normoactive bowel sounds, non-tender, other (obese) Integumentary: other (L hand is wrapped) Extremities: no cyanosis, pink and warm, other (1+ generalized edema) Neurologic: unable to assess Psychiatric: other (unable to assess) CBC and BMP: 05/26/19 05:00 05/26/19 05:00 ABG, PT/INR, D-dimer: ABG POC ABG pH 7.295 (7.35-7.45) L 05/26/19 04:13 ABG pH 7.284 pH Units (7.350-7.450) L 05/27/19 04:48 POC ABG pCO2 56.5 (35-45) H 05/26/19 04:13 ABG pCO2 53.7 mm Hg 05/27/19 04:48 POC ABG pO2 63 (80-105) L 05/26/19 04:13 ABG pO2 71.6 mm Hg (80.0-90.0) L 05/27/19 04:48 POC ABG HCO3 27.5 (22-26 mml/L) 05/26/19 04:13 POC ABG Total CO2 29 (23-27mmol/L) 05/26/19 04:13 POC ABG O2 Sat 88 05/26/19 04:13 ABG O2 Saturation 92.0 % (95.0-99.0) L 05/27/19 04:48 PT/INR, D-dimer PT 15.4 Sec. (12.2-14.9) H 05/01/19 Unknown INR 1.23 (0.87-1.13) H 05/01/19 Unknown Abnormal lab findings: Abnormal Labs 05/01/19 05/01/19 05/01/19 17:50 19:26 22:36 WBC RBC Hgb Hct MCV MCH MCHC RDW Lymph % (Auto) [place] % (Auto) Eos % (Auto) Lymph # [place] # Eos # Seg Neutrophils % Seg Neuts % (Manual) Lymphocytes % (Manual) Monocytes % (Manual) Eosinophils % (Manual) Nucleated RBC % Seg Neutrophils # Lymphocytes # (Manual) Monocytes # (Manual) Eosinophils # (Manual) PT INR APTT POC ABG pH 7.272 L 7.331 L ABG pH POC ABG pCO2 52.8 H POC ABG pO2 ABG pO2 ABG HCO3 ABG O2 Saturation ABG Base Excess ABG Hemoglobin Oxyhemoglobin Sodium 136 L Potassium 6.5 H* Chloride 97.2 L Carbon Dioxide BUN 60 H Creatinine Glucose 113 H POC Glucose Uric Acid Calcium Phosphorus Magnesium 2.40 H AST 139 H ALT 154 H Total Creatine Kinase CK-MB (CK-2) Troponin T NT-Pro-B Natriuret Pep Total Protein Albumin 3.8 L Triglycerides HDL Cholesterol Urine WBC (Auto) Urine Creatinine Urine Total Protein Vancomycin Trough 05/01/19 05/01/19 05/01/19 Unknown Unknown Unknown WBC 16.1 H RBC Hgb Hct MCV MCH MCHC RDW 17.2 H Lymph % (Auto) [place] % (Auto) 9.6 H Eos % (Auto) Lymph # [place] # 1.5 H Eos # Seg Neutrophils % 73.0 H Seg Neuts % (Manual) Lymphocytes % (Manual) Monocytes % (Manual) Eosinophils % (Manual) Nucleated RBC % Seg Neutrophils # 11.7 H Lymphocytes # (Manual) Monocytes # (Manual) Eosinophils # (Manual) PT 15.4 H INR 1.23 H APTT 22.7 L POC ABG pH ABG pH POC ABG pCO2 POC ABG pO2 ABG pO2 ABG HCO3 ABG O2 Saturation ABG Base Excess ABG Hemoglobin Oxyhemoglobin Sodium Potassium Chloride Carbon Dioxide BUN Creatinine Glucose POC Glucose Uric Acid Calcium Phosphorus Magnesium AST ALT Total Creatine Kinase CK-MB (CK-2) Troponin T NT-Pro-B Natriuret Pep 6831 H Total Protein Albumin Triglycerides HDL Cholesterol Urine WBC (Auto) Urine Creatinine Urine Total Protein Vancomycin Trough 05/01/19 05/02/19 05/02/19 Unknown 00:06 00:06 WBC RBC Hgb Hct MCV MCH MCHC RDW Lymph % (Auto) [place] % (Auto) Eos % (Auto) Lymph # [place] # Eos # Seg Neutrophils % Seg Neuts % (Manual) Lymphocytes % (Manual) Monocytes % (Manual) Eosinophils % (Manual) Nucleated RBC % Seg Neutrophils # Lymphocytes # (Manual) Monocytes # (Manual) Eosinophils # (Manual) PT INR APTT POC ABG pH ABG pH POC ABG pCO2 POC ABG pO2 ABG pO2 ABG HCO3 ABG O2 Saturation ABG Base Excess ABG Hemoglobin Oxyhemoglobin Sodium Potassium Chloride Carbon Dioxide BUN Creatinine Glucose POC Glucose Uric Acid Calcium Phosphorus 4.90 H Magnesium AST ALT Total Creatine Kinase 226 H CK-MB (CK-2) 5.7 H Troponin T 0.044 H NT-Pro-B Natriuret Pep Total Protein Albumin Triglycerides 182 H HDL Cholesterol 18 L Urine WBC (Auto) Urine Creatinine Urine Total Protein Vancomycin Trough 05/02/19 05/02/19 05/02/19 02:08 04:40 04:41 WBC 17.6 H RBC Hgb Hct MCV MCH 27 L MCHC RDW 17.4 H Lymph % (Auto) 10.2 L [place] % (Auto) 11.0 H Eos % (Auto) Lymph # [place] # 1.9 H Eos # Seg Neutrophils % 78.0 H Seg Neuts % (Manual) Lymphocytes % (Manual) Monocytes % (Manual) Eosinophils % (Manual) Nucleated RBC % Seg Neutrophils # 13.8 H Lymphocytes # (Manual) Monocytes # (Manual) Eosinophils # (Manual) PT INR APTT POC ABG pH ABG pH POC ABG pCO2 46.8 H POC ABG pO2 63 L ABG pO2 ABG HCO3 ABG O2 Saturation ABG Base Excess ABG Hemoglobin Oxyhemoglobin Sodium Potassium Chloride 96.3 L Carbon Dioxide BUN 63 H Creatinine 1.7 H Glucose POC Glucose Uric Acid Calcium Phosphorus Magnesium AST ALT Total Creatine Kinase CK-MB (CK-2) Troponin T NT-Pro-B Natriuret Pep Total Protein Albumin Triglycerides HDL Cholesterol Urine WBC (Auto) Urine Creatinine Urine Total Protein Vancomycin Trough 05/02/19 05/02/19 05/02/19 04:41 04:41 16:05 WBC RBC Hgb Hct MCV MCH MCHC RDW Lymph % (Auto) [place] % (Auto) Eos % (Auto) Lymph # [place] # Eos # Seg Neutrophils % Seg Neuts % (Manual) Lymphocytes % (Manual) Monocytes % (Manual) Eosinophils % (Manual) Nucleated RBC % Seg Neutrophils # Lymphocytes # (Manual) Monocytes # (Manual) Eosinophils # (Manual) PT INR APTT POC ABG pH ABG pH POC ABG pCO2 POC ABG pO2 ABG pO2 66.6 L ABG HCO3 31.9 H ABG O2 Saturation 92.5 L ABG Base Excess 5.8 H ABG Hemoglobin 13.3 L Oxyhemoglobin 90.6 L Sodium Potassium Chloride 97.2 L Carbon Dioxide BUN 61 H Creatinine 1.8 H Glucose POC Glucose Uric Acid Calcium Phosphorus Magnesium AST ALT Total Creatine Kinase CK-MB (CK-2) 5.2 H Troponin T 0.067 H D NT-Pro-B Natriuret Pep Total Protein Albumin Triglycerides HDL Cholesterol Urine WBC (Auto) Urine Creatinine Urine Total Protein Vancomycin Trough 05/02/19 05/03/19 05/03/19 20:39 04:35 05:05 WBC 11.8 H RBC Hgb Hct MCV MCH 27 L MCHC 31 L RDW 17.2 H Lymph % (Auto) [place] % (Auto) Eos % (Auto) Lymph # [place] # Eos # Seg Neutrophils % Seg Neuts % (Manual) Lymphocytes % (Manual) Monocytes % (Manual) Eosinophils % (Manual) Nucleated RBC % Seg Neutrophils # Lymphocytes # (Manual) Monocytes # (Manual) Eosinophils # (Manual) PT INR APTT POC ABG pH ABG pH POC ABG pCO2 53.6 H 54.0 H POC ABG pO2 55 L 63 L ABG pO2 ABG HCO3 ABG O2 Saturation ABG Base Excess ABG Hemoglobin Oxyhemoglobin Sodium Potassium Chloride Carbon Dioxide BUN Creatinine Glucose POC Glucose Uric Acid Calcium Phosphorus Magnesium AST ALT Total Creatine Kinase CK-MB (CK-2) Troponin T NT-Pro-B Natriuret Pep Total Protein Albumin Triglycerides HDL Cholesterol Urine WBC (Auto) Urine Creatinine Urine Total Protein Vancomycin Trough 05/03/19 05/03/19 05/03/19 05:05 10:55 16:48 WBC RBC Hgb Hct MCV MCH MCHC RDW Lymph % (Auto) [place] % (Auto) Eos % (Auto) Lymph # [place] # Eos # Seg Neutrophils % Seg Neuts % (Manual) Lymphocytes % (Manual) Monocytes % (Manual) Eosinophils % (Manual) Nucleated RBC % Seg Neutrophils # Lymphocytes # (Manual) Monocytes # (Manual) Eosinophils # (Manual) PT INR APTT POC ABG pH 7.604 H ABG pH POC ABG pCO2 POC ABG pO2 58 L ABG pO2 ABG HCO3 ABG O2 Saturation ABG Base Excess ABG Hemoglobin Oxyhemoglobin Sodium Potassium Chloride Carbon Dioxide BUN 52 H Creatinine 1.9 H Glucose 103 H POC Glucose Uric Acid Calcium Phosphorus Magnesium AST ALT Total Creatine Kinase CK-MB (CK-2) Troponin T NT-Pro-B Natriuret Pep Total Protein Albumin Triglycerides HDL Cholesterol Urine WBC (Auto) 33.0 H Urine Creatinine Urine Total Protein Vancomycin Trough 05/04/19 05/04/19 05/04/19 04:49 06:50 06:50 WBC 16.0 H RBC Hgb Hct MCV MCH 27 L MCHC 31 L RDW 17.8 H Lymph % (Auto) [place] % (Auto) Eos % (Auto) Lymph # [place] # Eos # Seg Neutrophils % Seg Neuts % (Manual) Lymphocytes % (Manual) Monocytes % (Manual) Eosinophils % (Manual) Nucleated RBC % Seg Neutrophils # Lymphocytes # (Manual) Monocytes # (Manual) Eosinophils # (Manual) PT INR APTT POC ABG pH 7.273 L ABG pH POC ABG pCO2 POC ABG pO2 ABG pO2 ABG HCO3 ABG O2 Saturation ABG Base Excess ABG Hemoglobin Oxyhemoglobin Sodium 148 H Potassium 5.5 H Chloride Carbon Dioxide BUN 53 H Creatinine 3.3 H D Glucose 106 H POC Glucose Uric Acid Calcium 8.3 L Phosphorus Magnesium AST ALT Total Creatine Kinase CK-MB (CK-2) Troponin T NT-Pro-B Natriuret Pep Total Protein Albumin Triglycerides HDL Cholesterol Urine WBC (Auto) Urine Creatinine Urine Total Protein Vancomycin Trough 05/05/19 05/05/19 05/05/19 00:05 04:30 05:00 WBC RBC Hgb Hct MCV MCH MCHC RDW Lymph % (Auto) [place] % (Auto) Eos % (Auto) Lymph # [place] # Eos # Seg Neutrophils % Seg Neuts % (Manual) Lymphocytes % (Manual) Monocytes % (Manual) Eosinophils % (Manual) Nucleated RBC % Seg Neutrophils # Lymphocytes # (Manual) Monocytes # (Manual) Eosinophils # (Manual) PT INR APTT POC ABG pH 7.225 L ABG pH POC ABG pCO2 > 70 H POC ABG pO2 ABG pO2 ABG HCO3 ABG O2 Saturation ABG Base Excess ABG Hemoglobin Oxyhemoglobin Sodium 151 H Potassium 5.1 H Chloride Carbon Dioxide BUN 64 H Creatinine 3.5 H Glucose 117 H POC Glucose 141 H Uric Acid Calcium 7.5 L Phosphorus Magnesium AST 93 H ALT 65 H Total Creatine Kinase CK-MB (CK-2) Troponin T NT-Pro-B Natriuret Pep Total Protein Albumin 2.9 L Triglycerides HDL Cholesterol Urine WBC (Auto) Urine Creatinine Urine Total Protein Vancomycin Trough 05/05/19 05/05/19 05/05/19 05:00 12:02 17:46 WBC 12.0 H RBC Hgb 11.3 L Hct MCV MCH 27 L MCHC 30 L RDW 18.4 H Lymph % (Auto) 7.9 L [place] % (Auto) 10.2 H Eos % (Auto) Lymph # 1.0 L [place] # 1.2 H Eos # Seg Neutrophils % 80.8 H Seg Neuts % (Manual) Lymphocytes % (Manual) Monocytes % (Manual) Eosinophils % (Manual) Nucleated RBC % Seg Neutrophils # 9.7 H Lymphocytes # (Manual) Monocytes # (Manual) Eosinophils # (Manual) PT INR APTT POC ABG pH ABG pH POC ABG pCO2 POC ABG pO2 ABG pO2 ABG HCO3 ABG O2 Saturation ABG Base Excess ABG Hemoglobin Oxyhemoglobin Sodium Potassium Chloride Carbon Dioxide BUN Creatinine Glucose POC Glucose 125 H 112 H Uric Acid Calcium Phosphorus Magnesium AST ALT Total Creatine Kinase CK-MB (CK-2) Troponin T NT-Pro-B Natriuret Pep Total Protein Albumin Triglycerides HDL Cholesterol Urine WBC (Auto) Urine Creatinine Urine Total Protein Vancomycin Trough 05/05/19 05/06/19 05/06/19 23:42 03:58 04:45 WBC 11.4 H RBC Hgb 10.7 L Hct 34.2 L MCV MCH 27 L MCHC 31 L RDW 16.9 H Lymph % (Auto) [place] % (Auto) Eos % (Auto) Lymph # [place] # Eos # Seg Neutrophils % Seg Neuts % (Manual) Lymphocytes % (Manual) Monocytes % (Manual) Eosinophils % (Manual) Nucleated RBC % Seg Neutrophils # Lymphocytes # (Manual) Monocytes # (Manual) Eosinophils # (Manual) PT INR APTT POC ABG pH ABG pH POC ABG pCO2 62.4 H POC ABG pO2 111 H ABG pO2 ABG HCO3 ABG O2 Saturation ABG Base Excess ABG Hemoglobin Oxyhemoglobin Sodium Potassium Chloride Carbon Dioxide BUN Creatinine Glucose POC Glucose 128 H Uric Acid Calcium Phosphorus Magnesium AST ALT Total Creatine Kinase CK-MB (CK-2) Troponin T NT-Pro-B Natriuret Pep Total Protein Albumin Triglycerides HDL Cholesterol Urine WBC (Auto) Urine Creatinine Urine Total Protein Vancomycin Trough 05/06/19 05/06/19 05/06/19 04:45 05:33 12:30 WBC RBC Hgb Hct MCV MCH MCHC RDW Lymph % (Auto) [place] % (Auto) Eos % (Auto) Lymph # [place] # Eos # Seg Neutrophils % Seg Neuts % (Manual) Lymphocytes % (Manual) Monocytes % (Manual) Eosinophils % (Manual) Nucleated RBC % Seg Neutrophils # Lymphocytes # (Manual) Monocytes # (Manual) Eosinophils # (Manual) PT INR APTT POC ABG pH ABG pH POC ABG pCO2 POC ABG pO2 ABG pO2 ABG HCO3 ABG O2 Saturation ABG Base Excess ABG Hemoglobin Oxyhemoglobin Sodium 149 H Potassium Chloride Carbon Dioxide 31 H BUN 67 H Creatinine 3.2 H Glucose 125 H POC Glucose 117 H 116 H Uric Acid Calcium 7.5 L Phosphorus Magnesium AST ALT Total Creatine Kinase CK-MB (CK-2) Troponin T NT-Pro-B Natriuret Pep Total Protein Albumin Triglycerides HDL Cholesterol Urine WBC (Auto) Urine Creatinine Urine Total Protein Vancomycin Trough 05/06/19 05/06/19 05/07/19 18:34 23:16 05:22 WBC RBC Hgb Hct MCV MCH MCHC RDW Lymph % (Auto) [place] % (Auto) Eos % (Auto) Lymph # [place] # Eos # Seg Neutrophils % Seg Neuts % (Manual) Lymphocytes % (Manual) Monocytes % (Manual) Eosinophils % (Manual) Nucleated RBC % Seg Neutrophils # Lymphocytes # (Manual) Monocytes # (Manual) Eosinophils # (Manual) PT INR APTT POC ABG pH ABG pH POC ABG pCO2 POC ABG pO2 ABG pO2 ABG HCO3 ABG O2 Saturation ABG Base Excess ABG Hemoglobin Oxyhemoglobin Sodium Potassium Chloride Carbon Dioxide BUN Creatinine Glucose POC Glucose 128 H 143 H 166 H Uric Acid Calcium Phosphorus Magnesium AST ALT Total Creatine Kinase CK-MB (CK-2) Troponin T NT-Pro-B Natriuret Pep Total Protein Albumin Triglycerides HDL Cholesterol Urine WBC (Auto) Urine Creatinine Urine Total Protein Vancomycin Trough 05/07/19 05/07/19 05/07/19 06:33 07:03 09:35 WBC RBC Hgb Hct MCV MCH MCHC RDW Lymph % (Auto) [place] % (Auto) Eos % (Auto) Lymph # [place] # Eos # Seg Neutrophils % Seg Neuts % (Manual) Lymphocytes % (Manual) Monocytes % (Manual) Eosinophils % (Manual) Nucleated RBC % Seg Neutrophils # Lymphocytes # (Manual) Monocytes # (Manual) Eosinophils # (Manual) PT INR APTT POC ABG pH 7.263 L 7.288 L ABG pH POC ABG pCO2 POC ABG pO2 51 L 56 L ABG pO2 ABG HCO3 ABG O2 Saturation ABG Base Excess ABG Hemoglobin Oxyhemoglobin Sodium Potassium Chloride Carbon Dioxide BUN 76 H Creatinine 3.2 H Glucose 147 H POC Glucose Uric Acid Calcium 7.9 L Phosphorus Magnesium AST ALT Total Creatine Kinase CK-MB (CK-2) Troponin T NT-Pro-B Natriuret Pep Total Protein Albumin Triglycerides HDL Cholesterol Urine WBC (Auto) Urine Creatinine Urine Total Protein Vancomycin Trough 05/07/19 05/07/19 05/07/19 09:35 12:17 13:45 WBC 13.4 H RBC Hgb 11.6 L Hct MCV MCH 27 L MCHC 31 L RDW 17.5 H Lymph % (Auto) [place] % (Auto) Eos % (Auto) Lymph # [place] # Eos # Seg Neutrophils % Seg Neuts % (Manual) Lymphocytes % (Manual) Monocytes % (Manual) Eosinophils % (Manual) Nucleated RBC % Seg Neutrophils # Lymphocytes # (Manual) Monocytes # (Manual) Eosinophils # (Manual) PT INR APTT POC ABG pH ABG pH POC ABG pCO2 POC ABG pO2 ABG pO2 ABG HCO3 ABG O2 Saturation ABG Base Excess ABG Hemoglobin Oxyhemoglobin Sodium Potassium Chloride Carbon Dioxide BUN Creatinine Glucose POC Glucose 130 H Uric Acid 18.0 H Calcium Phosphorus Magnesium AST ALT Total Creatine Kinase CK-MB (CK-2) Troponin T NT-Pro-B Natriuret Pep Total Protein Albumin Triglycerides HDL Cholesterol Urine WBC (Auto) Urine Creatinine Urine Total Protein Vancomycin Trough 05/07/19 05/07/19 05/08/19 17:39 22:40 05:06 WBC RBC Hgb Hct MCV MCH MCHC RDW Lymph % (Auto) [place] % (Auto) Eos % (Auto) Lymph # [place] # Eos # Seg Neutrophils % Seg Neuts % (Manual) Lymphocytes % (Manual) Monocytes % (Manual) Eosinophils % (Manual) Nucleated RBC % Seg Neutrophils # Lymphocytes # (Manual) Monocytes # (Manual) Eosinophils # (Manual) PT INR APTT POC ABG pH ABG pH POC ABG pCO2 POC ABG pO2 ABG pO2 ABG HCO3 ABG O2 Saturation ABG Base Excess ABG Hemoglobin Oxyhemoglobin Sodium Potassium Chloride Carbon Dioxide BUN Creatinine Glucose POC Glucose 116 H 148 H Uric Acid Calcium Phosphorus Magnesium AST ALT Total Creatine Kinase CK-MB (CK-2) Troponin T NT-Pro-B Natriuret Pep Total Protein Albumin Triglycerides HDL Cholesterol Urine WBC (Auto) Urine Creatinine 292.8 H Urine Total Protein 269 H Vancomycin Trough 05/08/19 05/08/19 05/08/19 05:32 11:28 13:48 WBC RBC Hgb Hct MCV MCH MCHC RDW Lymph % (Auto) [place] % (Auto) Eos % (Auto) Lymph # [place] # Eos # Seg Neutrophils % Seg Neuts % (Manual) Lymphocytes % (Manual) Monocytes % (Manual) Eosinophils % (Manual) Nucleated RBC % Seg Neutrophils # Lymphocytes # (Manual) Monocytes # (Manual) Eosinophils # (Manual) PT INR APTT POC ABG pH ABG pH POC ABG pCO2 45.4 H POC ABG pO2 64 L ABG pO2 ABG HCO3 ABG O2 Saturation ABG Base Excess ABG Hemoglobin Oxyhemoglobin Sodium Potassium Chloride Carbon Dioxide BUN 73 H Creatinine 2.7 H Glucose 127 H POC Glucose 107 H Uric Acid Calcium 7.6 L Phosphorus Magnesium AST ALT Total Creatine Kinase CK-MB (CK-2) Troponin T NT-Pro-B Natriuret Pep Total Protein Albumin Triglycerides HDL Cholesterol Urine WBC (Auto) Urine Creatinine Urine Total Protein Vancomycin Trough 05/08/19 05/09/19 05/09/19 17:48 04:50 04:53 WBC RBC 3.07 L Hgb 8.5 L D Hct 29.3 L D MCV 96 H MCH MCHC 29 L RDW 18.1 H Lymph % (Auto) [place] % (Auto) Eos % (Auto) Lymph # [place] # Eos # Seg Neutrophils % Seg Neuts % (Manual) Lymphocytes % (Manual) Monocytes % (Manual) Eosinophils % (Manual) Nucleated RBC % Seg Neutrophils # Lymphocytes # (Manual) Monocytes # (Manual) Eosinophils # (Manual) PT INR APTT POC ABG pH 7.316 L ABG pH POC ABG pCO2 66.0 H POC ABG pO2 69 L ABG pO2 ABG HCO3 ABG O2 Saturation ABG Base Excess ABG Hemoglobin Oxyhemoglobin Sodium Potassium Chloride Carbon Dioxide BUN Creatinine Glucose POC Glucose 155 H Uric Acid Calcium Phosphorus Magnesium AST ALT Total Creatine Kinase CK-MB (CK-2) Troponin T NT-Pro-B Natriuret Pep Total Protein Albumin Triglycerides HDL Cholesterol Urine WBC (Auto) Urine Creatinine Urine Total Protein Vancomycin Trough 05/09/19 05/09/19 05/09/19 05:46 07:24 12:10 WBC RBC Hgb Hct MCV MCH MCHC RDW Lymph % (Auto) [place] % (Auto) Eos % (Auto) Lymph # [place] # Eos # Seg Neutrophils % Seg Neuts % (Manual) Lymphocytes % (Manual) Monocytes % (Manual) Eosinophils % (Manual) Nucleated RBC % Seg Neutrophils # Lymphocytes # (Manual) Monocytes # (Manual) Eosinophils # (Manual) PT INR APTT POC ABG pH ABG pH POC ABG pCO2 POC ABG pO2 ABG pO2 ABG HCO3 ABG O2 Saturation ABG Base Excess ABG Hemoglobin Oxyhemoglobin Sodium Potassium Chloride Carbon Dioxide BUN 73 H Creatinine 2.4 H Glucose 153 H POC Glucose 123 H 148 H Uric Acid Calcium 8.2 L Phosphorus Magnesium AST 45 H ALT Total Creatine Kinase CK-MB (CK-2) Troponin T NT-Pro-B Natriuret Pep Total Protein 6.0 L Albumin 1.9 L Triglycerides HDL Cholesterol Urine WBC (Auto) Urine Creatinine Urine Total Protein Vancomycin Trough 05/09/19 05/09/19 05/10/19 18:23 23:26 04:52 WBC RBC Hgb Hct MCV MCH MCHC RDW Lymph % (Auto) [place] % (Auto) Eos % (Auto) Lymph # [place] # Eos # Seg Neutrophils % Seg Neuts % (Manual) Lymphocytes % (Manual) Monocytes % (Manual) Eosinophils % (Manual) Nucleated RBC % Seg Neutrophils # Lymphocytes # (Manual) Monocytes # (Manual) Eosinophils # (Manual) PT INR APTT POC ABG pH 7.305 L ABG pH POC ABG pCO2 62.6 H POC ABG pO2 ABG pO2 ABG HCO3 ABG O2 Saturation ABG Base Excess ABG Hemoglobin Oxyhemoglobin Sodium Potassium Chloride Carbon Dioxide BUN Creatinine Glucose POC Glucose 147 H 121 H Uric Acid Calcium Phosphorus Magnesium AST ALT Total Creatine Kinase CK-MB (CK-2) Troponin T NT-Pro-B Natriuret Pep Total Protein Albumin Triglycerides HDL Cholesterol Urine WBC (Auto) Urine Creatinine Urine Total Protein Vancomycin Trough 05/10/19 05/10/19 05/10/19 05:00 05:00 05:50 WBC RBC Hgb 10.3 L Hct 33.7 L MCV MCH 27 L MCHC 31 L RDW 17.0 H Lymph % (Auto) [place] % (Auto) Eos % (Auto) Lymph # [place] # Eos # Seg Neutrophils % Seg Neuts % (Manual) Lymphocytes % (Manual) Monocytes % (Manual) Eosinophils % (Manual) Nucleated RBC % Seg Neutrophils # Lymphocytes # (Manual) Monocytes # (Manual) Eosinophils # (Manual) PT INR APTT POC ABG pH ABG pH POC ABG pCO2 POC ABG pO2 ABG pO2 ABG HCO3 ABG O2 Saturation ABG Base Excess ABG Hemoglobin Oxyhemoglobin Sodium 147 H Potassium Chloride Carbon Dioxide BUN 70 H Creatinine 2.6 H Glucose 155 H POC Glucose 158 H Uric Acid Calcium 8.2 L Phosphorus Magnesium AST ALT Total Creatine Kinase CK-MB (CK-2) Troponin T NT-Pro-B Natriuret Pep Total Protein 6.1 L Albumin 2.5 L Triglycerides HDL Cholesterol Urine WBC (Auto) Urine Creatinine Urine Total Protein Vancomycin Trough 05/10/19 05/11/19 05/11/19 13:14 07:26 11:40 WBC RBC Hgb Hct MCV MCH MCHC RDW Lymph % (Auto) [place] % (Auto) Eos % (Auto) Lymph # [place] # Eos # Seg Neutrophils % Seg Neuts % (Manual) Lymphocytes % (Manual) Monocytes % (Manual) Eosinophils % (Manual) Nucleated RBC % Seg Neutrophils # Lymphocytes # (Manual) Monocytes # (Manual) Eosinophils # (Manual) PT INR APTT POC ABG pH ABG pH POC ABG pCO2 48.0 H POC ABG pO2 58 L ABG pO2 ABG HCO3 ABG O2 Saturation ABG Base Excess ABG Hemoglobin Oxyhemoglobin Sodium 147 H Potassium Chloride 107.2 H Carbon Dioxide BUN 67 H Creatinine 2.6 H Glucose 121 H POC Glucose 159 H Uric Acid Calcium Phosphorus Magnesium AST ALT Total Creatine Kinase CK-MB (CK-2) Troponin T NT-Pro-B Natriuret Pep Total Protein Albumin Triglycerides HDL Cholesterol Urine WBC (Auto) Urine Creatinine Urine Total Protein Vancomycin Trough 05/11/19 05/11/19 05/12/19 18:13 23:46 04:40 WBC RBC Hgb Hct MCV MCH MCHC RDW Lymph % (Auto) [place] % (Auto) Eos % (Auto) Lymph # [place] # Eos # Seg Neutrophils % Seg Neuts % (Manual) Lymphocytes % (Manual) Monocytes % (Manual) Eosinophils % (Manual) Nucleated RBC % Seg Neutrophils # Lymphocytes # (Manual) Monocytes # (Manual) Eosinophils # (Manual) PT INR APTT POC ABG pH ABG pH 7.264 L POC ABG pCO2 POC ABG pO2 ABG pO2 66.8 L ABG HCO3 31.0 H ABG O2 Saturation 92.0 L ABG Base Excess ABG Hemoglobin 10.3 L Oxyhemoglobin 90.1 L Sodium Potassium Chloride Carbon Dioxide BUN Creatinine Glucose POC Glucose 120 H 121 H Uric Acid Calcium Phosphorus Magnesium AST ALT Total Creatine Kinase CK-MB (CK-2) Troponin T NT-Pro-B Natriuret Pep Total Protein Albumin Triglycerides HDL Cholesterol Urine WBC (Auto) Urine Creatinine Urine Total Protein Vancomycin Trough 05/12/19 05/12/19 05/12/19 04:45 04:45 11:14 WBC RBC Hgb 10.2 L Hct 32.4 L MCV MCH MCHC 31 L RDW 17.2 H Lymph % (Auto) [place] % (Auto) Eos % (Auto) Lymph # [place] # Eos # Seg Neutrophils % Seg Neuts % (Manual) Lymphocytes % (Manual) Monocytes % (Manual) Eosinophils % (Manual) Nucleated RBC % Seg Neutrophils # Lymphocytes # (Manual) Monocytes # (Manual) Eosinophils # (Manual) PT INR APTT POC ABG pH 7.284 L ABG pH POC ABG pCO2 67.8 H POC ABG pO2 ABG pO2 ABG HCO3 ABG O2 Saturation ABG Base Excess ABG Hemoglobin Oxyhemoglobin Sodium Potassium Chloride Carbon Dioxide BUN 63 H Creatinine 2.4 H Glucose 110 H POC Glucose Uric Acid Calcium Phosphorus Magnesium AST ALT Total Creatine Kinase CK-MB (CK-2) Troponin T NT-Pro-B Natriuret Pep Total Protein Albumin Triglycerides HDL Cholesterol Urine WBC (Auto) Urine Creatinine Urine Total Protein Vancomycin Trough 05/12/19 05/12/19 05/13/19 11:44 23:11 04:30 WBC RBC Hgb Hct MCV MCH MCHC RDW Lymph % (Auto) [place] % (Auto) Eos % (Auto) Lymph # [place] # Eos # Seg Neutrophils % Seg Neuts % (Manual) Lymphocytes % (Manual) Monocytes % (Manual) Eosinophils % (Manual) Nucleated RBC % Seg Neutrophils # Lymphocytes # (Manual) Monocytes # (Manual) Eosinophils # (Manual) PT INR APTT POC ABG pH ABG pH 7.288 L POC ABG pCO2 POC ABG pO2 ABG pO2 109.7 H ABG HCO3 30.9 H ABG O2 Saturation ABG Base Excess 3.2 H ABG Hemoglobin 9.6 L Oxyhemoglobin Sodium Potassium Chloride Carbon Dioxide BUN Creatinine Glucose POC Glucose 126 H 147 H Uric Acid Calcium Phosphorus Magnesium AST ALT Total Creatine Kinase CK-MB (CK-2) Troponin T NT-Pro-B Natriuret Pep Total Protein Albumin Triglycerides HDL Cholesterol Urine WBC (Auto) Urine Creatinine Urine Total Protein Vancomycin Trough 05/13/19 05/13/19 05/14/19 06:27 11:58 04:00 WBC RBC 3.16 L Hgb 9.3 L Hct 27.9 L MCV MCH MCHC RDW 17.1 H Lymph % (Auto) [place] % (Auto) Eos % (Auto) Lymph # [place] # Eos # Seg Neutrophils % Seg Neuts % (Manual) Lymphocytes % (Manual) Monocytes % (Manual) Eosinophils % (Manual) Nucleated RBC % Seg Neutrophils # Lymphocytes # (Manual) Monocytes # (Manual) Eosinophils # (Manual) PT INR APTT POC ABG pH ABG pH POC ABG pCO2 POC ABG pO2 ABG pO2 ABG HCO3 ABG O2 Saturation ABG Base Excess ABG Hemoglobin Oxyhemoglobin Sodium Potassium Chloride Carbon Dioxide BUN Creatinine Glucose POC Glucose 113 H 130 H Uric Acid Calcium Phosphorus Magnesium AST ALT Total Creatine Kinase CK-MB (CK-2) Troponin T NT-Pro-B Natriuret Pep Total Protein Albumin Triglycerides HDL Cholesterol Urine WBC (Auto) Urine Creatinine Urine Total Protein Vancomycin Trough 05/14/19 05/14/19 05/14/19 04:00 04:34 05:32 WBC RBC Hgb Hct MCV MCH MCHC RDW Lymph % (Auto) [place] % (Auto) Eos % (Auto) Lymph # [place] # Eos # Seg Neutrophils % Seg Neuts % (Manual) Lymphocytes % (Manual) Monocytes % (Manual) Eosinophils % (Manual) Nucleated RBC % Seg Neutrophils # Lymphocytes # (Manual) Monocytes # (Manual) Eosinophils # (Manual) PT INR APTT POC ABG pH 7.328 L ABG pH POC ABG pCO2 61.7 H POC ABG pO2 ABG pO2 ABG HCO3 ABG O2 Saturation ABG Base Excess ABG Hemoglobin Oxyhemoglobin Sodium 135 L D Potassium Chloride Carbon Dioxide BUN 57 H Creatinine 2.2 H Glucose 115 H POC Glucose 115 H Uric Acid Calcium 8.1 L Phosphorus Magnesium AST ALT Total Creatine Kinase CK-MB (CK-2) Troponin T NT-Pro-B Natriuret Pep Total Protein Albumin Triglycerides HDL Cholesterol Urine WBC (Auto) Urine Creatinine Urine Total Protein Vancomycin Trough 05/14/19 05/15/19 05/15/19 12:11 05:10 05:24 WBC RBC Hgb Hct MCV MCH MCHC RDW Lymph % (Auto) [place] % (Auto) Eos % (Auto) Lymph # [place] # Eos # Seg Neutrophils % Seg Neuts % (Manual) Lymphocytes % (Manual) Monocytes % (Manual) Eosinophils % (Manual) Nucleated RBC % Seg Neutrophils # Lymphocytes # (Manual) Monocytes # (Manual) Eosinophils # (Manual) PT INR APTT POC ABG pH ABG pH 7.342 L POC ABG pCO2 POC ABG pO2 ABG pO2 79.1 L ABG HCO3 28.2 H ABG O2 Saturation ABG Base Excess ABG Hemoglobin 7.0 L Oxyhemoglobin 94.4 L Sodium Potassium Chloride Carbon Dioxide BUN Creatinine Glucose POC Glucose 110 H 116 H Uric Acid Calcium Phosphorus Magnesium AST ALT Total Creatine Kinase CK-MB (CK-2) Troponin T NT-Pro-B Natriuret Pep Total Protein Albumin Triglycerides HDL Cholesterol Urine WBC (Auto) Urine Creatinine Urine Total Protein Vancomycin Trough 05/15/19 05/15/19 05/16/19 09:00 18:12 04:50 WBC RBC Hgb Hct MCV MCH MCHC RDW Lymph % (Auto) [place] % (Auto) Eos % (Auto) Lymph # [place] # Eos # Seg Neutrophils % Seg Neuts % (Manual) Lymphocytes % (Manual) Monocytes % (Manual) Eosinophils % (Manual) Nucleated RBC % Seg Neutrophils # Lymphocytes # (Manual) Monocytes # (Manual) Eosinophils # (Manual) PT INR APTT POC ABG pH ABG pH 7.250 L POC ABG pCO2 POC ABG pO2 ABG pO2 76.4 L ABG HCO3 ABG O2 Saturation 94.6 L ABG Base Excess -3.1 L ABG Hemoglobin 9.7 L Oxyhemoglobin 92.4 L Sodium Potassium Chloride Carbon Dioxide BUN Creatinine Glucose POC Glucose 110 H Uric Acid Calcium Phosphorus Magnesium AST ALT Total Creatine Kinase CK-MB (CK-2) Troponin T NT-Pro-B Natriuret Pep Total Protein Albumin Triglycerides HDL Cholesterol Urine WBC (Auto) Urine Creatinine Urine Total Protein Vancomycin Trough 20.5 H 05/16/19 05/16/19 05/17/19 05:50 05:50 04:20 WBC RBC 3.36 L 3.44 L Hgb 9.4 L 9.3 L Hct 29.1 L 29.7 L MCV MCH 27 L MCHC 31 L RDW 17.6 H 17.6 H Lymph % (Auto) [place] % (Auto) Eos % (Auto) Lymph # [place] # Eos # Seg Neutrophils % Seg Neuts % (Manual) 77.0 H Lymphocytes % (Manual) 5.0 L Monocytes % (Manual) Eosinophils % (Manual) 10.0 H Nucleated RBC % Seg Neutrophils # Lymphocytes # (Manual) 0.5 L Monocytes # (Manual) Eosinophils # (Manual) 0.9 H PT INR APTT POC ABG pH ABG pH POC ABG pCO2 POC ABG pO2 ABG pO2 ABG HCO3 ABG O2 Saturation ABG Base Excess ABG Hemoglobin Oxyhemoglobin Sodium Potassium Chloride Carbon Dioxide BUN 83 H Creatinine 4.4 H D Glucose 118 H POC Glucose Uric Acid Calcium Phosphorus Magnesium AST ALT Total Creatine Kinase CK-MB (CK-2) Troponin T NT-Pro-B Natriuret Pep Total Protein Albumin Triglycerides HDL Cholesterol Urine WBC (Auto) Urine Creatinine Urine Total Protein Vancomycin Trough 05/17/19 05/17/19 05/18/19 04:30 Unknown 01:50 WBC RBC 3.49 L Hgb 9.4 L Hct 30.0 L MCV MCH 27 L MCHC 31 L RDW 17.8 H Lymph % (Auto) 7.9 L [place] % (Auto) 15.4 H Eos % (Auto) 6.3 H Lymph # 0.7 L [place] # 1.4 H Eos # 0.6 H Seg Neutrophils % 70.2 H Seg Neuts % (Manual) Lymphocytes % (Manual) Monocytes % (Manual) Eosinophils % (Manual) Nucleated RBC % Seg Neutrophils # Lymphocytes # (Manual) Monocytes # (Manual) Eosinophils # (Manual) PT INR APTT POC ABG pH ABG pH 7.272 L POC ABG pCO2 POC ABG pO2 ABG pO2 75.7 L ABG HCO3 ABG O2 Saturation 93.8 L ABG Base Excess -3.0 L ABG Hemoglobin 7.8 L Oxyhemoglobin 91.6 L Sodium Potassium 5.2 H Chloride Carbon Dioxide BUN 96 H Creatinine 5.7 H Glucose 112 H POC Glucose Uric Acid Calcium Phosphorus Magnesium AST ALT Total Creatine Kinase CK-MB (CK-2) Troponin T NT-Pro-B Natriuret Pep Total Protein Albumin Triglycerides 173 H HDL Cholesterol Urine WBC (Auto) Urine Creatinine Urine Total Protein Vancomycin Trough 05/18/19 05/18/19 05/18/19 01:50 04:41 05:24 WBC RBC Hgb Hct MCV MCH MCHC RDW Lymph % (Auto) [place] % (Auto) Eos % (Auto) Lymph # [place] # Eos # Seg Neutrophils % Seg Neuts % (Manual) Lymphocytes % (Manual) Monocytes % (Manual) Eosinophils % (Manual) Nucleated RBC % Seg Neutrophils # Lymphocytes # (Manual) Monocytes # (Manual) Eosinophils # (Manual) PT INR APTT POC ABG pH 7.260 L ABG pH POC ABG pCO2 54.9 H POC ABG pO2 ABG pO2 ABG HCO3 ABG O2 Saturation ABG Base Excess ABG Hemoglobin Oxyhemoglobin Sodium Potassium 5.6 H Chloride Carbon Dioxide BUN 104 H Creatinine 6.6 H Glucose 107 H POC Glucose 106 H Uric Acid Calcium Phosphorus Magnesium AST ALT Total Creatine Kinase CK-MB (CK-2) Troponin T NT-Pro-B Natriuret Pep Total Protein Albumin Triglycerides HDL Cholesterol Urine WBC (Auto) Urine Creatinine Urine Total Protein Vancomycin Trough 05/18/19 05/18/19 05/19/19 11:34 23:26 04:06 WBC RBC 3.22 L Hgb 8.8 L Hct 27.3 L MCV MCH 27 L MCHC RDW 17.5 H Lymph % (Auto) [place] % (Auto) Eos % (Auto) Lymph # [place] # Eos # Seg Neutrophils % Seg Neuts % (Manual) 74.0 H Lymphocytes % (Manual) 4.0 L Monocytes % (Manual) 11.0 H Eosinophils % (Manual) 7.0 H Nucleated RBC % 1.0 H Seg Neutrophils # Lymphocytes # (Manual) 0.3 L Monocytes # (Manual) 0.9 H Eosinophils # (Manual) 0.6 H PT INR APTT POC ABG pH ABG pH POC ABG pCO2 POC ABG pO2 ABG pO2 ABG HCO3 ABG O2 Saturation ABG Base Excess ABG Hemoglobin Oxyhemoglobin Sodium Potassium Chloride Carbon Dioxide BUN Creatinine Glucose POC Glucose 152 H 112 H Uric Acid Calcium Phosphorus Magnesium AST ALT Total Creatine Kinase CK-MB (CK-2) Troponin T NT-Pro-B Natriuret Pep Total Protein Albumin Triglycerides HDL Cholesterol Urine WBC (Auto) Urine Creatinine Urine Total Protein Vancomycin Trough 05/19/19 05/19/19 05/20/19 04:06 06:00 04:00 WBC RBC 3.40 L Hgb 9.2 L Hct 28.6 L MCV MCH 27 L MCHC RDW 17.6 H Lymph % (Auto) [place] % (Auto) Eos % (Auto) Lymph # [place] # Eos # Seg Neutrophils % Seg Neuts % (Manual) Lymphocytes % (Manual) 11.0 L Monocytes % (Manual) Eosinophils % (Manual) 14.0 H Nucleated RBC % Seg Neutrophils # Lymphocytes # (Manual) 1.1 L Monocytes # (Manual) Eosinophils # (Manual) 1.4 H PT INR APTT POC ABG pH ABG pH 7.315 L POC ABG pCO2 POC ABG pO2 ABG pO2 ABG HCO3 ABG O2 Saturation ABG Base Excess ABG Hemoglobin 6.7 L Oxyhemoglobin 94.1 L Sodium Potassium 5.2 H Chloride Carbon Dioxide 21 L BUN 110 H Creatinine 7.2 H Glucose POC Glucose Uric Acid Calcium 8.3 L Phosphorus Magnesium AST ALT Total Creatine Kinase CK-MB (CK-2) Troponin T NT-Pro-B Natriuret Pep Total Protein Albumin Triglycerides HDL Cholesterol Urine WBC (Auto) Urine Creatinine Urine Total Protein Vancomycin Trough 05/20/19 05/20/19 05/20/19 04:00 05:48 12:00 WBC RBC Hgb Hct MCV MCH MCHC RDW Lymph % (Auto) [place] % (Auto) Eos % (Auto) Lymph # [place] # Eos # Seg Neutrophils % Seg Neuts % (Manual) Lymphocytes % (Manual) Monocytes % (Manual) Eosinophils % (Manual) Nucleated RBC % Seg Neutrophils # Lymphocytes # (Manual) Monocytes # (Manual) Eosinophils # (Manual) PT INR APTT POC ABG pH ABG pH 7.281 L POC ABG pCO2 POC ABG pO2 ABG pO2 78.7 L ABG HCO3 ABG O2 Saturation 94.5 L ABG Base Excess -3.0 L ABG Hemoglobin 9.9 L Oxyhemoglobin 92.5 L Sodium 136 L Potassium 5.7 H Chloride 96.3 L Carbon Dioxide BUN 125 H Creatinine 8.3 H Glucose 106 H POC Glucose Uric Acid Calcium Phosphorus Magnesium AST ALT Total Creatine Kinase CK-MB (CK-2) Troponin T NT-Pro-B Natriuret Pep Total Protein Albumin Triglycerides HDL Cholesterol Urine WBC (Auto) 26.0 H Urine Creatinine Urine Total Protein Vancomycin Trough 05/21/19 05/21/19 05/21/19 04:33 05:20 Unknown WBC RBC 3.38 L Hgb 9.1 L Hct 28.5 L MCV MCH 27 L MCHC RDW 17.4 H Lymph % (Auto) [place] % (Auto) Eos % (Auto) Lymph # [place] # Eos # Seg Neutrophils % Seg Neuts % (Manual) 71.0 H Lymphocytes % (Manual) 1.0 L Monocytes % (Manual) 11.0 H Eosinophils % (Manual) 6.0 H Nucleated RBC % Seg Neutrophils # Lymphocytes # (Manual) 0.1 L Monocytes # (Manual) 1.0 H Eosinophils # (Manual) 0.6 H PT INR APTT POC ABG pH 7.315 L ABG pH POC ABG pCO2 57.8 H POC ABG pO2 68 L ABG pO2 ABG HCO3 ABG O2 Saturation ABG Base Excess ABG Hemoglobin Oxyhemoglobin Sodium Potassium Chloride 96.3 L Carbon Dioxide BUN 102 H Creatinine 7.0 H Glucose 103 H POC Glucose Uric Acid Calcium Phosphorus Magnesium AST ALT Total Creatine Kinase CK-MB (CK-2) Troponin T NT-Pro-B Natriuret Pep Total Protein Albumin Triglycerides HDL Cholesterol Urine WBC (Auto) Urine Creatinine Urine Total Protein Vancomycin Trough 05/22/19 05/22/19 05/22/19 03:54 06:25 06:25 WBC RBC 3.22 L Hgb 8.6 L Hct 27.0 L MCV MCH 27 L MCHC RDW 17.5 H Lymph % (Auto) [place] % (Auto) 16.2 H Eos % (Auto) 10.8 H Lymph # [place] # 1.3 H Eos # 0.9 H Seg Neutrophils % Seg Neuts % (Manual) Lymphocytes % (Manual) 10.0 L Monocytes % (Manual) 13.0 H Eosinophils % (Manual) 8.0 H Nucleated RBC % Seg Neutrophils # Lymphocytes # (Manual) 0.9 L Monocytes # (Manual) 1.1 H Eosinophils # (Manual) 0.7 H PT INR APTT POC ABG pH 7.313 L ABG pH POC ABG pCO2 55.0 H POC ABG pO2 ABG pO2 ABG HCO3 ABG O2 Saturation ABG Base Excess ABG Hemoglobin Oxyhemoglobin Sodium 135 L Potassium Chloride 94.3 L Carbon Dioxide BUN 117 H Creatinine 7.8 H Glucose POC Glucose Uric Acid Calcium 8.2 L Phosphorus Magnesium AST ALT Total Creatine Kinase CK-MB (CK-2) Troponin T NT-Pro-B Natriuret Pep Total Protein Albumin Triglycerides HDL Cholesterol Urine WBC (Auto) Urine Creatinine Urine Total Protein Vancomycin Trough 05/23/19 05/24/19 05/24/19 05:21 05:00 05:00 WBC RBC 3.18 L Hgb 8.5 L Hct 26.7 L MCV MCH 27 L MCHC RDW 17.9 H Lymph % (Auto) [place] % (Auto) Eos % (Auto) Lymph # [place] # Eos # Seg Neutrophils % Seg Neuts % (Manual) Lymphocytes % (Manual) Monocytes % (Manual) Eosinophils % (Manual) Nucleated RBC % Seg Neutrophils # Lymphocytes # (Manual) Monocytes # (Manual) Eosinophils # (Manual) PT INR APTT POC ABG pH ABG pH POC ABG pCO2 49.7 H POC ABG pO2 73 L ABG pO2 ABG HCO3 ABG O2 Saturation ABG Base Excess ABG Hemoglobin Oxyhemoglobin Sodium Potassium Chloride 95.7 L Carbon Dioxide BUN 97 H Creatinine 6.5 H Glucose POC Glucose Uric Acid Calcium 8.0 L Phosphorus Magnesium AST ALT Total Creatine Kinase CK-MB (CK-2) Troponin T NT-Pro-B Natriuret Pep Total Protein Albumin Triglycerides HDL Cholesterol Urine WBC (Auto) Urine Creatinine Urine Total Protein Vancomycin Trough 05/24/19 05/25/19 05/25/19 06:17 04:22 15:45 WBC RBC 2.98 L Hgb 8.1 L Hct 24.9 L MCV MCH 27 L MCHC RDW 17.8 H Lymph % (Auto) [place] % (Auto) Eos % (Auto) Lymph # [place] # Eos # Seg Neutrophils % Seg Neuts % (Manual) Lymphocytes % (Manual) Monocytes % (Manual) Eosinophils % (Manual) Nucleated RBC % Seg Neutrophils # Lymphocytes # (Manual) Monocytes # (Manual) Eosinophils # (Manual) PT INR APTT POC ABG pH 7.330 L 7.313 L ABG pH POC ABG pCO2 52.5 H 51.1 H POC ABG pO2 77 L ABG pO2 ABG HCO3 ABG O2 Saturation ABG Base Excess ABG Hemoglobin Oxyhemoglobin Sodium Potassium Chloride Carbon Dioxide BUN Creatinine Glucose POC Glucose Uric Acid Calcium Phosphorus Magnesium AST ALT Total Creatine Kinase CK-MB (CK-2) Troponin T NT-Pro-B Natriuret Pep Total Protein Albumin Triglycerides HDL Cholesterol Urine WBC (Auto) Urine Creatinine Urine Total Protein Vancomycin Trough 05/25/19 05/26/19 05/26/19 15:45 04:13 05:00 WBC RBC 3.10 L Hgb 8.4 L Hct 26.0 L MCV MCH 27 L MCHC RDW 17.4 H Lymph % (Auto) [place] % (Auto) Eos % (Auto) Lymph # [place] # Eos # Seg Neutrophils % Seg Neuts % (Manual) Lymphocytes % (Manual) Monocytes % (Manual) Eosinophils % (Manual) Nucleated RBC % Seg Neutrophils # Lymphocytes # (Manual) Monocytes # (Manual) Eosinophils # (Manual) PT INR APTT POC ABG pH 7.295 L ABG pH POC ABG pCO2 56.5 H POC ABG pO2 63 L ABG pO2 ABG HCO3 ABG O2 Saturation ABG Base Excess ABG Hemoglobin Oxyhemoglobin Sodium 136 L Potassium Chloride 96.8 L Carbon Dioxide BUN 83 H Creatinine 5.9 H Glucose POC Glucose Uric Acid Calcium 7.6 L Phosphorus Magnesium AST ALT Total Creatine Kinase CK-MB (CK-2) Troponin T NT-Pro-B Natriuret Pep Total Protein Albumin Triglycerides HDL Cholesterol Urine WBC (Auto) Urine Creatinine Urine Total Protein Vancomycin Trough 05/26/19 05/27/19 05:00 04:48 WBC RBC Hgb Hct MCV MCH MCHC RDW Lymph % (Auto) [place] % (Auto) Eos % (Auto) Lymph # [place] # Eos # Seg Neutrophils % Seg Neuts % (Manual) Lymphocytes % (Manual) Monocytes % (Manual) Eosinophils % (Manual) Nucleated RBC % Seg Neutrophils # Lymphocytes # (Manual) Monocytes # (Manual) Eosinophils # (Manual) PT INR APTT POC ABG pH ABG pH 7.284 L POC ABG pCO2 POC ABG pO2 ABG pO2 71.6 L ABG HCO3 ABG O2 Saturation 92.0 L ABG Base Excess ABG Hemoglobin 7.7 L Oxyhemoglobin 89.9 L Sodium 136 L Potassium Chloride 95.3 L Carbon Dioxide BUN 96 H Creatinine 6.5 H Glucose 108 H POC Glucose Uric Acid Calcium 7.6 L Phosphorus Magnesium AST ALT Total Creatine Kinase CK-MB (CK-2) Troponin T NT-Pro-B Natriuret Pep Total Protein Albumin Triglycerides HDL Cholesterol Urine WBC (Auto) Urine Creatinine Urine Total Protein Vancomycin Trough
--- NOTE | 2019-05-27 16:46 | Progress Note ---
Assessment and Plan - Patient Problems (1) Acute kidney injury Current Visit: Yes Status: Acute Plan to address problem: Acute kidney injury now dialysis dependent worsening Baseline creatinine unknown Kidney function is worsening Chest x-ray with concern for Bibasilar haziness? Atelectasis Renal function worsened with diuresis creatinine improved from 3.5 to 3.2 to 2.4 mg/dl recent worsening in the setting of Elevated vancomycin and subsquent acute tubular injury continue hemodialysis. Repeat BMP (2) Hypercapnic respiratory failure Current Visit: Yes Status: Acute Qualifiers: Chronicity: acute on chronic Qualified Code(s): J96.22 - Acute and chronic respiratory failure with hypercapnia Plan to address problem: Acute on chronic respiratory failure with hypercapnia Patient is currently intubated chest x-ray with some concern for bibasilar haziness Given morbid obesity. Obesity hypoventilation Wean oxygen as tolerated (3) Anemia Current Visit: Yes Status: Acute Plan to address problem: Mild anemia Monitor CBC (4) Fever Current Visit: Yes Status: Acute Plan to address problem: Fever workup for infectious causes Infectious disease is following has vas cath can likely take vas cath out on Friday after Hemodialysis. for line hol and plan for replacment Cath on Friday. discussed with Dr. Gonzalez. (5) Hyperkalemia Current Visit: Yes Status: Acute Plan to address problem: hyperkalemia ;resolved. Continue dialysis. Subjective Principal diagnosis: HF; acute hypoxemic resp failure, SIRS, CARLA Interval history: 34-year-old gentleman with morbid obesity, found with cyanosis difficulty with breathing and brought to the emergency room he required intubation review of systems unobtainable patient remains intubated and FiO2 100% he has had worsening renal function nephrology consulted for this. He was subsequently found to have a fever infectious diseases is followingshe initially related improvement. Acute kidney injury, subsequent worsening in the setting of elevated vancomycin levels Patient seen remains intubated and sedated no urine output Has lower extremity edema We'll repeat hemodialysis on Friday schedule Diuretics when necessary Objective - Vital Signs Vital signs: Vital Signs - 12hr 05/27/19 05/27/19 05/27/19 04:45 04:48 05:01 Temperature Pulse Rate 88 91 H 93 H Pulse Rate [ From Monitor] Respiratory 25 H 18 Rate Blood Pressure 121/50 127/60 110/50 O2 Sat by Pulse 93 94 Oximetry 01/02/20 01/02/20 01/02/20 05:15 05:30 05:45 Temperature Pulse Rate 98 H 86 Pulse Rate [ From Monitor] Respiratory 15 14 Rate Blood Pressure 126/62 120/49 120/52 O2 Sat by Pulse 91 90 Oximetry 05/27/19 05/27/19 05/27/19 05:51 06:00 06:15 Temperature Pulse Rate 87 85 81 Pulse Rate [ From Monitor] Respiratory 24 25 H Rate Blood Pressure 120/52 112/43 111/44 O2 Sat by Pulse 86 87 Oximetry 05/27/19 05/27/19 05/27/19 06:30 06:45 07:00 Temperature Pulse Rate 82 81 81 Pulse Rate [ From Monitor] Respiratory 25 H 25 H 26 H Rate Blood Pressure 115/45 123/44 120/49 O2 Sat by Pulse 87 91 87 Oximetry 05/27/19 05/27/19 05/27/19 07:15 07:30 07:45 Temperature Pulse Rate 80 79 82 Pulse Rate [ From Monitor] Respiratory 25 H 25 H 25 H Rate Blood Pressure 119/46 118/47 112/46 O2 Sat by Pulse 90 93 90 Oximetry 05/27/19 05/27/19 05/27/19 08:00 08:15 08:30 Temperature 100.0 F H Pulse Rate 83 79 78 Pulse Rate [ 84 From Monitor] Respiratory 19 25 H 25 H Rate Blood Pressure 113/50 113/45 108/45 O2 Sat by Pulse 91 95 96 Oximetry 05/27/19 05/27/19 05/27/19 08:37 08:45 09:00 Temperature Pulse Rate 81 79 80 Pulse Rate [ From Monitor] Respiratory 25 H 25 H Rate Blood Pressure 111/44 110/50 111/46 O2 Sat by Pulse 87 95 94 Oximetry 05/27/19 05/27/19 05/27/19 09:15 09:30 09:45 Temperature Pulse Rate 77 78 81 Pulse Rate [ From Monitor] Respiratory 25 H 25 H 24 Rate Blood Pressure 104/42 107/47 106/42 O2 Sat by Pulse 96 94 94 Oximetry 05/27/19 05/27/19 05/27/19 10:00 10:15 10:30 Temperature Pulse Rate 82 81 81 Pulse Rate [ From Monitor] Respiratory 25 H 19 17 Rate Blood Pressure 114/41 108/41 119/47 O2 Sat by Pulse 93 93 93 Oximetry 05/27/19 05/27/19 05/27/19 10:45 11:01 11:15 Temperature Pulse Rate 85 93 H 81 Pulse Rate [ From Monitor] Respiratory 14 12 0 L Rate Blood Pressure 112/43 104/34 114/48 O2 Sat by Pulse 92 90 95 Oximetry 05/27/19 05/27/19 05/27/19 11:30 11:45 12:00 Temperature 100.0 F H Pulse Rate 79 78 79 Pulse Rate [ 84 From Monitor] Respiratory 0 L 0 L 0 L Rate Blood Pressure 109/37 110/40 109/39 O2 Sat by Pulse 95 95 96 Oximetry 05/27/19 05/27/19 05/27/19 12:10 12:15 12:30 Temperature Pulse Rate 81 78 90 Pulse Rate [ From Monitor] Respiratory 0 L 15 Rate Blood Pressure 109/39 105/42 127/54 O2 Sat by Pulse 96 97 93 Oximetry 05/27/19 05/27/19 05/27/19 12:45 13:00 13:13 Temperature Pulse Rate 91 H 91 H 92 H Pulse Rate [ From Monitor] Respiratory 15 22 Rate Blood Pressure 124/56 126/57 126/57 O2 Sat by Pulse 94 92 Oximetry 05/27/19 05/27/19 05/27/19 13:15 13:30 13:45 Temperature Pulse Rate 88 81 80 Pulse Rate [ From Monitor] Respiratory 8 L 0 L 13 Rate Blood Pressure 126/48 115/35 107/37 O2 Sat by Pulse 94 92 94 Oximetry 05/27/19 05/27/19 05/27/19 14:00 14:10 14:15 Temperature 99.5 F Pulse Rate 78 150 H 76 Pulse Rate [ From Monitor] Respiratory 25 H 0 L Rate Blood Pressure 113/35 119/42 120/41 O2 Sat by Pulse 96 93 Oximetry 05/27/19 05/27/19 05/27/19 14:30 14:45 15:00 Temperature Pulse Rate 76 77 74 Pulse Rate [ From Monitor] Respiratory 0 L 6 L 0 L Rate Blood Pressure 117/38 118/35 118/41 O2 Sat by Pulse 94 95 94 Oximetry 05/27/19 05/27/19 05/27/19 15:15 15:30 15:45 Temperature Pulse Rate 74 72 73 Pulse Rate [ From Monitor] Respiratory 0 L 6 L 9 L Rate Blood Pressure 114/39 123/40 123/39 O2 Sat by Pulse 94 95 96 Oximetry 05/27/19 05/27/19 05/27/19 16:00 16:15 16:30 Temperature 99.5 F Pulse Rate 71 75 76 Pulse Rate [ 71 From Monitor] Respiratory 0 L Rate Blood Pressure 121/42 113/34 121/43 O2 Sat by Pulse 95 Oximetry - General Appearance General appearance: well-developed, well-nourished EENT: ATNC, PERRL Neck: no JVD Respiratory: Present: Clear to Ascultation Cardiology: regular, S1S2 Gastrointestinal: normal, normoactive bowel sounds Integumentary: rash Neurologic: obtunded Musculoskeletal: deferred Psychiatric: mood/affect appropriate - Lab 05/26/19 05:00 05/26/19 05:00 Most recent lab results ABG pH 7.284 pH Units (7.350-7.450) L 05/27/19 04:48 ABG pCO2 53.7 mm Hg 05/27/19 04:48 ABG pO2 71.6 mm Hg (80.0-90.0) L 05/27/19 04:48 ABG HCO3 24.9 mmol/L (20.0-26.0) 05/27/19 04:48 ABG O2 Saturation 92.0 % (95.0-99.0) L 05/27/19 04:48 Calcium 7.6 mg/dL (8.4-10.2) L 05/26/19 05:00 Phosphorus 4.90 mg/dL (2.5-4.5) H 05/02/19 00:06 Magnesium 2.30 mg/dL (1.7-2.3) 05/02/19 00:06 Urine Creatinine 292.8 mg/dL (0.1-20.0) H 05/07/19 22:40 Urine Sodium 11 mmol/L 05/07/19 22:40 Urine Total Protein 269 mg/dL (5-11.8) H 05/07/19 22:40 - Imaging Chest x-ray: image reviewed (reviewed CXR with patchy opacities) Medications & Allergies - Medications Allergies/Adverse Reactions: Allergies No Known Allergies Allergy (Verified 05/01/19 20:27) Home Medications: Home Medications Medication Instructions Recorded Confirmed Last Taken Type No Known Home Medications [No 05/03/19 05/03/19 Unknown History Reported Home Medications] Active Medications: Generic Name Dose Route Start Last Admin Trade Name Freq PRN Reason Stop Dose Admin Acetaminophen 650 mg 05/01/19 22:46 05/26/19 18:59 Tylenol PO 650 mg Q4H PRN Administration Pain MILD(1-3)/Fever >100.5/FREEMAN Albumin Human 25 gm 05/19/19 10:47 Alburx 25% (Albumin) IV ARIANE PRN Hypotension Alteplase, Recombinant 2 mg 05/25/19 09:30 05/27/19 10:50 Cathflo IV 2 mg ARIANE PRN Administration LINE FLUSH Lipase/Protease/Amylase 1 each 05/14/19 15:[address] 10,500 Unit FEEDTUBE PRN PRN For Clogged Feeding Tube Dextrose 50 gm 05/01/19 20:24 D50w (25gm) Vial IV Q30MIN PRN Hypoglycemia Protocol Enoxaparin Sodium 30 mg 05/16/19 10:00 05/27/19 09:47 Enoxaparin SUB-Q 30 mg QDAY VICKEY Administration Epoetin Hugo 10,000 unit 05/19/19 10:47 Procrit IV ARIANE PRN hemodialysis Famotidine 20 mg 05/16/19 10:00 05/27/19 09:47 Pepcid PO 20 mg DAILY VICKEY Administration Hydralazine HCl 20 mg 05/13/19 08:09 05/14/19 18:09 Apresoline IV 20 mg Q4HR PRN Administration SBP >/=160 Hydrophilic Ointment 1 applic 05/01/19 21:14 Vaseline Lip Therapy TP Q2HR PRN Dry Lips Fentanyl Citrate 2,000 mcg in 100 mls @ 10.195 mls/hr 05/01/19 22:00 05/27/19 13:11 Fentanyl Drip Premix IV 2 mcg/kg/hr TITR VICKEY 20.39 mls/hr Administration Protocol 1 MCG/KG/HR Propofol 1,000 mg in 100 mls @ 7.011 mls/hr 05/03/19 04:00 05/27/19 13:12 Diprivan 10 Mg/Ml IV 10 mcg/kg/min TITR VICKEY 14.022 mls/hr Administration Protocol 5 MCG/KG/MIN Norepinephrine 4 mg in 250 mls @ 7.5 mls/hr 05/03/19 18:00 05/20/19 08:04 Levophed Drip 4 Mg/Ns 250 Ml IV 0 mcg/min TITR VICKEY 0 mls/hr Titration Protocol 2 MCG/MIN Sodium Chloride 500 mls @ 10 mls/hr 05/06/19 15:00 Nacl 0.9% 500 Ml IV DIRECT VICKEY Nicardipine HCl 50 mg/ Sodium 250 mls @ 25 mls/hr 05/13/19 10:00 05/14/19 23:12 Chloride IV 0 mg/hr TITR VICKEY 0 mls/hr Titration Protocol 5 MG/HR Sodium Chloride 100 mls @ 999 mls/hr 05/19/19 10:47 05/20/19 08:14 Nacl 0.9% IV 999 mls/hr ARIANE PRN Administration Hypotension Labetalol HCl 100 mg 05/14/19 14:00 05/27/19 13:13 Labetalol PO 100 mg Q8HR VICKEY Administration Levetiracetam 750 mg 05/13/19 10:00 05/27/19 09:47 Keppra PO 750 mg BID VICKEY Administration Lorazepam 2 mg 05/06/19 06:22 05/10/19 16:17 Ativan IV 2 mg Q4H PRN Administration Seizures/AGITATION Multi-Ingred Cream/Lotion/Oil/Oint 1 applic 05/01/19 21:14 Artificial Tears Ophth Oint OU Q4HR PRN Dry Eye(s) Ondansetron HCl 4 mg 05/01/19 22:46 Zofran IV Q8H PRN Nausea And Vomiting Scopolamine 1 each 05/20/19 12:00 05/20/19 12:52 Transderm-Scop TD 1 each Q72HR VICKEY Administration Simple Syrup 15 ml 05/14/19 15:01 Simple Syrup FEEDTUBE PRN PRN Hypoglycemia Simple Syrup 30 ml 05/14/19 15:01 Simple Syrup FEEDTUBE PRN PRN Hypoglycemia Sodium Bicarbonate 325 mg 05/14/19 15:01 Sodium Bicarbonate FEEDTUBE PRN PRN For Clogged Feeding Tube Sodium Chloride 10 ml 05/02/19 10:00 05/27/19 09:48 Sodium Chloride Flush Syringe 10 Ml IV 10 ml BID VICKEY Administration Sodium Chloride 10 ml 05/01/19 22:46 12/11/19 02:28 Sodium Chloride Flush Syringe 10 Ml IV 10 ml PRN PRN Administration LINE FLUSH
[2019-05-28] MEDS: fentaNYL DRIP Premix 2,000 MCG/100 ML BAG IV SCH ×5 (00:51→22:13)
--- NOTE | 2019-05-28 09:53 | Progress Note ---
Assessment and Plan - Patient Problems (1) Acute kidney injury Current Visit: Yes Status: Acute Plan to address problem: Acute kidney injury now dialysis dependent worsening Baseline creatinine unknown Kidney function is worsening Chest x-ray with concern for Bibasilar haziness? Atelectasis Renal function worsened with diuresis creatinine improved from 3.5 to 3.2 to 2.4 mg/dl recent worsening in the setting of Elevated vancomycin and subsquent acute tubular injury continue hemodialysis. Repeat BMP (2) Hypercapnic respiratory failure Current Visit: Yes Status: Acute Qualifiers: Chronicity: acute on chronic Qualified Code(s): J96.22 - Acute and chronic respiratory failure with hypercapnia Plan to address problem: Acute on chronic respiratory failure with hypercapnia Patient is currently intubated chest x-ray with some concern for bibasilar haziness Given morbid obesity. Obesity hypoventilation Wean oxygen as tolerated (3) Anemia Current Visit: Yes Status: Acute Plan to address problem: Mild anemia Monitor CBC (4) Fever Current Visit: Yes Status: Acute Plan to address problem: Fever workup for infectious causes Infectious disease is following has vas cath can likely take vas cath out on Friday after Hemodialysis. for line holiday after dialysis on Friday and plan for replacment Cath on Friday. discussed with Dr. Gonzalez. (5) Hyperkalemia Current Visit: Yes Status: Acute Plan to address problem: hyperkalemia ;resolved. Continue dialysis. Subjective Principal diagnosis: HF; acute hypoxemic resp failure, SIRS, CARLA Interval history: 34-year-old gentleman with morbid obesity, found with cyanosis difficulty with breathing and brought to the emergency room he required intubation review of systems unobtainable patient remains intubated and FiO2 100% he has had worsening renal function nephrology consulted for this. He was subsequently found to have a fever infectious diseases is following she initially related improvement. Acute kidney injury, subsequent worsening in the setting of elevated vancomycin levels Patient seen remains intubated and sedated no urine output Has lower extremity edema We'll repeat hemodialysis on Friday schedule Patient still having fever spikes plan for line Holiday over the weekend after dialysis on Friday: DC Vas-Cath Replaced PermCath on Friday if patient is afebrile if not replace Vas-Cath Friday Objective - Vital Signs Vital signs: Vital Signs - 12hr 05/27/19 05/27/19 05/27/19 22:00 22:09 22:15 Temperature Pulse Rate 82 76 74 Pulse Rate [ From Monitor] Respiratory 19 8 L 6 L Rate Blood Pressure 110/48 110/48 117/38 O2 Sat by Pulse 97 97 97 Oximetry 05/27/19 05/27/19 05/27/19 22:30 22:45 22:58 Temperature 99.6 F Pulse Rate 75 73 Pulse Rate [ From Monitor] Respiratory 12 16 Rate Blood Pressure 117/39 117/39 O2 Sat by Pulse 97 98 Oximetry 05/27/19 05/27/19 05/27/19 23:00 23:15 23:30 Temperature Pulse Rate 72 71 73 Pulse Rate [ From Monitor] Respiratory 15 10 L 13 Rate Blood Pressure 113/31 116/35 118/34 O2 Sat by Pulse 98 98 98 Oximetry 05/27/19 05/27/19 05/28/19 23:45 23:56 00:00 Temperature Pulse Rate 79 73 82 Pulse Rate [ 90 From Monitor] Respiratory 23 6 L Rate Blood Pressure 119/37 118/34 122/43 O2 Sat by Pulse 96 98 96 Oximetry 05/28/19 05/28/19 05/28/19 00:15 00:31 00:45 Temperature Pulse Rate 91 H 99 H Pulse Rate [ From Monitor] Respiratory 19 11 L Rate Blood Pressure 138/69 138/69 93/40 O2 Sat by Pulse 96 93 95 Oximetry 05/28/19 05/28/19 05/28/19 01:00 01:15 01:30 Temperature Pulse Rate 92 H 95 H 93 H Pulse Rate [ From Monitor] Respiratory 25 H 26 H 25 H Rate Blood Pressure 142/52 135/57 141/48 O2 Sat by Pulse 96 95 91 Oximetry 05/28/19 05/28/19 05/28/19 01:45 02:00 02:15 Temperature Pulse Rate 95 H 84 84 Pulse Rate [ From Monitor] Respiratory 26 H 25 H 25 H Rate Blood Pressure 146/50 140/42 132/44 O2 Sat by Pulse 88 95 96 Oximetry 05/28/19 05/28/19 05/28/19 02:30 02:45 03:00 Temperature Pulse Rate 82 83 82 Pulse Rate [ From Monitor] Respiratory 25 H 25 H 25 H Rate Blood Pressure 131/39 135/43 129/40 O2 Sat by Pulse 96 97 97 Oximetry 05/28/19 05/28/1905/28/20 03:15 03:30 03:31 Temperature 99.1 F Pulse Rate 82 96 H Pulse Rate [ From Monitor] Respiratory 23 25 H Rate Blood Pressure 127/39 138/59 O2 Sat by Pulse 97 Oximetry 05/28/19 05/28/19 05/28/19 03:45 04:00 04:15 Temperature Pulse Rate 86 83 83 Pulse Rate [ 90 From Monitor] Respiratory 25 H 25 H 25 H Rate Blood Pressure 145/55 130/42 134/38 O2 Sat by Pulse 97 96 95 Oximetry 05/28/19 05/28/19 05/28/19 04:31 04:45 05:00 Temperature Pulse Rate 83 80 78 Pulse Rate [ From Monitor] Respiratory 25 H 25 H 25 H Rate Blood Pressure 117/33 115/28 115/28 O2 Sat by Pulse 97 98 99 Oximetry 05/28/19 05/28/19 05/28/19 05:15 05:30 05:45 Temperature Pulse Rate 79 77 79 Pulse Rate [ From Monitor] Respiratory 25 H 25 H 25 H Rate Blood Pressure 114/35 112/34 105/33 O2 Sat by Pulse 98 98 99 Oximetry 05/28/19 05/28/19 05/28/19 06:00 06:15 06:30 Temperature Pulse Rate 76 78 79 Pulse Rate [ From Monitor] Respiratory 25 H 25 H 25 H Rate Blood Pressure 107/38 113/33 112/43 O2 Sat by Pulse 100 99 98 Oximetry 05/28/19 05/28/19 05/28/19 06:33 06:45 07:00 Temperature Pulse Rate 78 79 92 H Pulse Rate [ From Monitor] Respiratory 25 H 25 H Rate Blood Pressure 112/43 116/39 123/39 O2 Sat by Pulse 98 98 Oximetry 05/28/19 05/28/19 05/28/19 07:15 07:30 07:45 Temperature Pulse Rate 94 H 94 H 90 Pulse Rate [ From Monitor] Respiratory 23 25 H 25 H Rate Blood Pressure 131/43 124/41 119/37 O2 Sat by Pulse 98 96 96 Oximetry 05/28/19 05/28/19 07:53 08:00 Temperature Pulse Rate 93 H 89 Pulse Rate [ 91 H From Monitor] Respiratory 25 H Rate Blood Pressure 119/37 119/35 O2 Sat by Pulse 98 97 Oximetry - General Appearance General appearance: obese EENT: ATNC, PERRL Neck: no JVD Respiratory: Present: Clear to Ascultation, Decreased Breath Sounds Cardiology: regular, S1S2 Gastrointestinal: normal, normoactive bowel sounds Integumentary: no rash Neurologic: other (sedated and intubated) Psychiatric: other (unable to assess) - Lab 05/26/19 05:00 05/26/19 05:00 Most recent lab results ABG pH 7.284 pH Units (7.350-7.450) L 05/27/19 04:48 ABG pCO2 53.7 mm Hg 05/27/19 04:48 ABG pO2 71.6 mm Hg (80.0-90.0) L 05/27/19 04:48 ABG HCO3 24.9 mmol/L (20.0-26.0) 05/27/19 04:48 ABG O2 Saturation 92.0 % (95.0-99.0) L 05/27/19 04:48 Calcium 7.6 mg/dL (8.4-10.2) L 05/26/19 05:00 Phosphorus 4.90 mg/dL (2.5-4.5) H 05/02/19 00:06 Magnesium 2.30 mg/dL (1.7-2.3) 05/02/19 00:06 Urine Creatinine 292.8 mg/dL (0.1-20.0) H 05/07/19 22:40 Urine Sodium 11 mmol/L 05/07/19 22:40 Urine Total Protein 269 mg/dL (5-11.8) H 05/07/19 22:40 - Imaging Chest x-ray: image reviewed (review chest x-ray poor penetration bilateral haziness) Medications & Allergies - Medications Allergies/Adverse Reactions: Allergies No Known Allergies Allergy (Verified 05/01/19 20:27) Home Medications: Home Medications Medication Instructions Recorded Confirmed Last Taken Type No Known Home Medications [No 05/03/19 05/03/19 Unknown History Reported Home Medications] Active Medications: Generic Name Dose Route Start Last Admin Trade Name Freq PRN Reason Stop Dose Admin Acetaminophen 650 mg 05/01/19 22:46 05/26/19 18:59 Tylenol PO 650 mg Q4H PRN Administration Pain MILD(1-3)/Fever >100.5/FREEMAN Albumin Human 25 gm 05/19/19 10:47 Alburx 25% (Albumin) IV ARIANE PRN Hypotension Alteplase, Recombinant 2 mg 05/25/19 09:30 05/27/19 10:50 Cathflo IV 2 mg ARIANE PRN Administration LINE FLUSH Lipase/Protease/Amylase 1 each 05/14/19 15:[address] 10,500 Unit FEEDTUBE PRN PRN For Clogged Feeding Tube Dextrose 50 gm 05/01/19 20:24 D50w (25gm) Vial IV Q30MIN PRN Hypoglycemia Protocol Enoxaparin Sodium 30 mg 05/16/19 10:00 05/27/19 09:47 Enoxaparin SUB-Q 30 mg QDAY VICKEY Administration Epoetin Hugo 10,000 unit 05/19/19 10:47 Procrit IV ARIANE PRN hemodialysis Famotidine 20 mg 05/16/19 10:00 05/27/19 09:47 Pepcid PO 20 mg DAILY VICKEY Administration Hydralazine HCl 20 mg 05/13/19 08:09 05/14/19 18:09 Apresoline IV 20 mg Q4HR PRN Administration SBP >/=160 Hydrophilic Ointment 1 applic 05/01/19 21:14 Vaseline Lip Therapy TP Q2HR PRN Dry Lips Fentanyl Citrate 2,000 mcg in 100 mls @ 10.195 mls/hr 05/01/19 22:00 05/28/19 05:11 Fentanyl Drip Premix IV 2 mcg/kg/hr TITR VICKEY 20.39 mls/hr Administration Protocol 1 MCG/KG/HR Propofol 1,000 mg in 100 mls @ 7.011 mls/hr 05/03/19 04:00 05/28/19 06:35 Diprivan 10 Mg/Ml IV 10 mcg/kg/min TITR VICKEY 14.022 mls/hr Administration Protocol 5 MCG/KG/MIN Norepinephrine 4 mg in 250 mls @ 7.5 mls/hr 05/03/19 18:00 05/20/19 08:04 Levophed Drip 4 Mg/Ns 250 Ml IV 0 mcg/min TITR VICKEY 0 mls/hr Titration Protocol 2 MCG/MIN Sodium Chloride 500 mls @ 10 mls/hr 05/06/19 15:00 Nacl 0.9% 500 Ml IV DIRECT VICKEY Nicardipine HCl 50 mg/ Sodium 250 mls @ 25 mls/hr 05/13/19 10:00 05/14/19 23:12 Chloride IV 0 mg/hr TITR VICKEY 0 mls/hr Titration Protocol 5 MG/HR Sodium Chloride 100 mls @ 999 mls/hr 05/19/19 10:47 05/20/19 08:14 Nacl 0.9% IV 999 mls/hr ARIANE PRN Administration Hypotension Labetalol HCl 100 mg 05/14/19 14:00 05/28/19 06:33 Labetalol PO Not Given Q8HR VICKEY Levetiracetam 750 mg 05/13/19 10:00 05/27/19 21:09 Keppra PO 750 mg BID VICKEY Administration Lorazepam 2 mg 05/06/19 06:22 05/10/19 16:17 Ativan IV 2 mg Q4H PRN Administration Seizures/AGITATION Multi-Ingred Cream/Lotion/Oil/Oint 1 applic 05/01/19 21:14 Artificial Tears Ophth Oint OU Q4HR PRN Dry Eye(s) Ondansetron HCl 4 mg 05/01/19 22:46 Zofran IV Q8H PRN Nausea And Vomiting Scopolamine 1 each 05/20/19 12:00 05/20/19 12:52 Transderm-Scop TD 1 each Q72HR VICKEY Administration Simple Syrup 15 ml 05/14/19 15:01 Simple Syrup FEEDTUBE PRN PRN Hypoglycemia Simple Syrup 30 ml 05/14/19 15:01 Simple Syrup FEEDTUBE PRN PRN Hypoglycemia Sodium Bicarbonate 325 mg 05/14/19 15:01 Sodium Bicarbonate FEEDTUBE PRN PRN For Clogged Feeding Tube Sodium Chloride 10 ml 05/02/19 10:00 05/27/19 21:09 Sodium Chloride Flush Syringe 10 Ml IV 10 ml BID VICKEY Administration Sodium Chloride 10 ml 05/01/19 22:46 05/05/19 02:28 Sodium Chloride Flush Syringe 10 Ml IV 10 ml PRN PRN Administration LINE FLUSH
[2019-05-28] MEDS: levETIRAcetam 500 MG/5 ML ORAL LIQD PO SCH ×2 (10:03→21:58)
[2019-05-28] MEDS: FAMOTIDINE 20 MG TAB PO SCH (10:03)
[2019-05-28] MEDS: ENOXAPARIN 30 MG/0.3 ML INJ SUB-Q SCH (10:03)
[2019-05-28] MEDS ORDERED: FUROSEMIDE 100 MG/10 ML INJ IV ONE (10:30)
--- NOTE | 2019-05-28 10:55 | Progress Note ---
Assessment and Plan Assessment and plan: Patient is a 34-year-old man who is morbidly obese (575 lbs) with unknown medical history who presented to [facility] ED on 05/01/2019 (I started seeing patient for the first time on 05/20/19, Day 19) with SOB. He was placed on BIPAP and failed. He had a cardiac arrest in ED and was Intubated in ED. On 05/12/19- ETT exchanged due to hypoxia. In the chart there is a report that he has undiagnosis LANDON and using someone else CPAP. I spoke with his mother Magalis Jay on Saturday May 25, 2019 at [phone], her answered the phone but he is not James' father. She came to the phone. She appeared to be crying, she says she has the FLU but no other family has visit to my knowledge. On 05/27/2018, he bite down on ruptured ETT tube which was replaced. Patient remains intubated on very high PEEP which is preventing Tracheostomy. Tmax since 05/27/2019 has been 100.3F. 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 Acute hypoxic and hypercapenic respiratory failure on vent >96hrs Status post intubation, continue sedation, consulted pulmonary And input noted still on high PEEP, making Tracheostomy difficult to attempt. Sports Specialist managing RUE PICC right IJ vasc catheter placed on off levaphed since , 05/20/2019 drool, with increased secretion, scopolamine patch applied Bladder scan <100 Right neck IJ vas Catheter dsg changed ?trach consideration, intubated since admission 05/01/19==>still too high PEEP for trach, ?PEG consideration Obesity Hypoventilation syndrome Patient previously on LANDON Management at home but per discussion with family, was non complaint Sepsis- not present on admission -On abx, ID following. LP when able ?Meningitis considering recurrent fever. Doubt, but ID following Acylovir stopped Monitoring Temperature, ID following size prohibits leon CT scanner ?Seizure activity during hospital coarse, none since i have been following since 05/20/19 -Meninigitis prophy done, ID following -Neurology consult -EEG-negative Acute CHF, new onset, diastolic treated with IV lasix now held, on HD now monitor I/O, daily weights Cardiology following. Added beta-jenny, no TIM inhibitor secondary to renal insufficiency Hypertension malignant Start antihypertensive, monitor blood pressure IV hydralazine as needed for further control Acute kidney injury due to ATN ?Vancomycin toxicity, Held. Monitor Nephrology following and input noted. Berkowitz for strict I/Os HD per nephrology Hyperkalemia-Kaylexate given Monitor bmp Passive congestive hepatic syndrome -LFT elevated but trending down -Noted Gallbladder sludge DVT prophylaxis with Lovenox Extreme obesity, bmi 70.1 Full code status. Prognosis guarded History Interval history: Patient was seen and examined. Follow-up on current diagnosis of Respiratory failure. Overnight uneventful. Imaging, nursing note, chart, labs and old chart reviewed. Still intubated and sedated. Hospitalist Physical - Physical exam Narrative exam: Gen: critically ill, bmi 70.1 sedated HEENT: NCAT, OP ETT in place Neck: supple, no adenopathy, no thyromegaly, no JVD CVS/Heart: tachycardiac, normal S1S2, pulses present bilaterally Chest/Lungs: tachypneic, Symmetrical chest expansion, good air entry bilaterally GI/Abdomen: soft, NTND, good bowel sounds, no guarding or rebound : scrotal edema, unable to see his penis Extermity/Skin: good skin turgor MSK: sedated Neuro: sedated Psych: sedated - Constitutional Vitals: Temp Pulse Resp BP Pulse Ox 99.1 F 89 25 H 123/36 95 05/28/19 03:31 05/28/19 10:30 05/28/19 10:30 05/28/19 10:30 05/28/19 10:30 General appearance: Present: no acute distress Results - Labs CBC & Chem 7: 05/26/19 05:00 05/26/19 05:00 Labs: Laboratory Last Values WBC 8.1 K/mm3 (4.5-11.0) 05/26/19 05:00 RBC 3.10 M/mm3 (3.65-5.03) L 05/26/19 05:00 Hgb 8.4 gm/dl (11.8-15.2) L 05/26/19 05:00 Hct 26.0 % (35.5-45.6) L 05/26/19 05:00 MCV 84 fl (84-94) 05/26/19 05:00 MCH 27 pg (28-32) L 05/26/19 05:00 MCHC 32 % (32-34) 05/26/19 05:00 RDW 17.4 % (13.2-15.2) H 05/26/19 05:00 Plt Count 247 K/mm3 (140-440) 05/26/19 05:00 Lymph % (Auto) 7.9 % (13.4-35.0) L 05/18/19 01:50 [place] % (Auto) 16.2 % (0.0-7.3) H 05/22/19 06:25 Eos % (Auto) 10.8 % (0.0-4.3) H 05/22/19 06:25 Baso % (Auto) 0.2 % (0.0-1.8) 05/18/19 01:50 Lymph # 0.7 K/mm3 (1.2-5.4) L 05/18/19 01:50 [place]ergus # 1.3 K/mm3 (0.0-0.8) H 05/22/19 06:25 Eos # 0.9 K/mm3 (0.0-0.4) H 05/22/19 06:25 Baso # 0.0 K/mm3 (0.0-0.1) 05/22/19 06:25 Add Manual Diff Complete 05/22/19 06:25 Total Counted 100 05/22/19 06:25 Seg Neutrophils % 65.5 % (40.0-70.0) 05/22/19 06:25 Seg Neuts % (Manual) 65.0 % (40.0-70.0) 05/22/19 06:25 Band Neutrophils % 3.0 % 05/22/19 06:25 Lymphocytes % (Manual) 10.0 % (13.4-35.0) L 05/22/19 06:25 Reactive Lymphs % (Man) 0 % 05/22/19 06:25 Monocytes % (Manual) 13.0 % (0.0-7.3) H 05/22/19 06:25 Eosinophils % (Manual) 8.0 % (0.0-4.3) H 05/22/19 06:25 Basophils % (Manual) 0 % (0.0-1.8) 05/22/19 06:25 Metamyelocytes % 1.0 % 05/22/19 06:25 Myelocytes % 0 % 05/22/19 06:25 Promyelocytes % 0 % 05/22/19 06:25 Blast Cells % 0 % 05/22/19 06:25 Nucleated RBC % Not Reportable 05/22/19 06:25 Seg Neutrophils # 5.3 K/mm3 (1.8-7.7) 05/22/19 06:25 Seg Neutrophils # Man 5.6 K/mm3 (1.8-7.7) 05/22/19 06:25 Band Neutrophils # 0.3 K/mm3 05/22/19 06:25 Lymphocytes # (Manual) 0.9 K/mm3 (1.2-5.4) L 05/22/19 06:25 Abs React Lymphs (Man) 0.0 K/mm3 05/22/19 06:25 Monocytes # (Manual) 1.1 K/mm3 (0.0-0.8) H 05/22/19 06:25 Eosinophils # (Manual) 0.7 K/mm3 (0.0-0.4) H 05/22/19 06:25 Basophils # (Manual) 0.0 K/mm3 (0.0-0.1) 05/22/19 06:25 Metamyelocytes # 0.1 K/mm3 05/22/19 06:25 Myelocytes # 0.0 K/mm3 05/22/19 06:25 Promyelocytes # 0.0 K/mm3 05/22/19 06:25 Blast Cells # 0.0 K/mm3 05/22/19 06:25 WBC Morphology Not Reportable 05/22/19 06:25 Hypersegmented Neuts Not Reportable 05/22/19 06:25 Hyposegmented Neuts Not Reportable 05/22/19 06:25 Hypogranular Neuts Not Reportable 05/22/19 06:25 Smudge Cells Not Reportable 05/22/19 06:25 Toxic Granulation Not Reportable 05/22/19 06:25 Toxic Vacuolation Not Reportable 05/22/19 06:25 Dohle Bodies Not Reportable 05/22/19 06:25 Pelger-Huet Anomaly Not Reportable 05/22/19 06:25 Renea Rods Not Reportable 05/22/19 06:25 Platelet Estimate Consistent w auto 05/22/19 06:25 Clumped Platelets Not Reportable 05/22/19 06:25 Plt Clumps, EDTA Not Reportable 05/22/19 06:25 Large Platelets Not Reportable 05/22/19 06:25 Giant Platelets Not Reportable 05/22/19 06:25 Platelet Satelliting Not Reportable 05/22/19 06:25 Plt Morphology Comment Not Reportable 05/22/19 06:25 RBC Morphology Not Reportable 05/22/19 06:25 Dimorphic RBCs Not Reportable 05/22/19 06:25 Polychromasia Not Reportable 05/22/19 06:25 Hypochromasia Few 05/22/19 06:25 Poikilocytosis Not Reportable 05/22/19 06:25 Anisocytosis Not Reportable 05/22/19 06:25 Microcytosis Not Reportable 05/22/19 06:25 Macrocytosis Not Reportable 05/22/19 06:25 Spherocytes Not Reportable 05/22/19 06:25 Pappenheimer Bodies Not Reportable 05/22/19 06:25 Sickle Cells Not Reportable 05/22/19 06:25 Target Cells Not Reportable 05/22/19 06:25 Tear Drop Cells Not Reportable 05/22/19 06:25 Ovalocytes Few 05/22/19 06:25 Stomatocytes Few 05/22/19 06:25 Helmet Cells Not Reportable 05/22/19 06:25 [place]-Baron Bodies Not Reportable 05/22/19 06:25 [place] [employer] Rings Not Reportable 05/22/19 06:25 [place] Cells Not Reportable 05/22/19 06:25 Bite Cells Not Reportable 05/22/19 06:25 Crenated Cell Not Reportable 05/22/19 06:25 Elliptocytes Not Reportable 05/22/19 06:25 Acanthocytes (Spur) Not Reportable 05/22/19 06:25 Rouleaux Not Reportable 05/22/19 06:25 Hemoglobin C Crystals Not Reportable 05/22/19 06:25 Schistocytes Few 05/22/19 06:25 Malaria parasites Not Reportable 05/22/19 06:25 Syed Bodies Not Reportable 05/22/19 06:25 Hem Pathologist Commnt No 05/22/19 06:25 PT 15.4 Sec. (12.2-14.9) H 05/01/19 Unknown INR 1.23 (0.87-1.13) H 05/01/19 Unknown APTT 22.7 Sec. (24.2-36.6) L 05/01/19 Unknown POC ABG pH 7.323 (7.35-7.45) L 05/28/19 04:47 ABG pH 7.284 pH Units (7.350-7.450) L 05/27/19 04:48 POC ABG pCO2 56.2 (35-45) H 05/28/19 04:47 ABG pCO2 53.7 mm Hg 05/27/19 04:48 POC ABG pO2 94 (80-105) 05/28/19 04:47 ABG pO2 71.6 mm Hg (80.0-90.0) L 05/27/19 04:48 POC ABG HCO3 29.1 (22-26 mml/L) 05/28/19 04:47 ABG HCO3 24.9 mmol/L (20.0-26.0) 05/27/19 04:48 POC ABG Total CO2 31 (23-27mmol/L) 05/28/19 04:47 POC ABG O2 Sat 96 05/28/19 04:47 ABG O2 Saturation 92.0 % (95.0-99.0) L 05/27/19 04:48 ABG O2 Content 9.9 (0.0-44) 05/27/19 04:48 POC ABG Base Excess 3 ((-2) - (+3)mmol/L) 05/28/19 04:47 ABG Base Excess -1.9 mmol/L (-2.0-3.0) 05/27/19 04:48 ABG Hemoglobin 7.7 gm/dl (14.0-18.0) L 05/27/19 04:48 ABG Carboxyhemoglobin 1.8 % (0.0-5.0) 05/27/19 04:48 ABG Methemoglobin 0.5 % (0.0-1.5) 05/27/19 04:48 Oxyhemoglobin 89.9 % (95.0-99.0) L 05/27/19 04:48 FiO2 40 % 05/28/19 04:47 Sodium 136 mmol/L (137-145) L 05/26/19 05:00 Potassium 4.4 mmol/L (3.6-5.0) 05/26/19 05:00 Chloride 95.3 mmol/L (98-107) L 05/26/19 05:00 Carbon Dioxide 23 mmol/L (22-30) 05/26/19 05:00 Anion Gap 22 mmol/L 05/26/19 05:00 BUN 96 mg/dL (9-20) H 05/26/19 05:00 Creatinine 6.5 mg/dL (0.8-1.5) H 05/26/19 05:00 Estimated GFR 12 ml/min 05/26/19 05:00 BUN/Creatinine Ratio 15 % 05/26/19 05:00 Glucose 108 mg/dL (75-100) H 05/26/19 05:00 POC Glucose 95 (70-105) 05/28/19 00:10 Osmolality 327 Mosm/kg 05/07/19 13:45 Uric Acid 18.0 mg/dL (3.5-7.6) H 05/07/19 13:45 Calcium 7.6 mg/dL (8.4-10.2) L 05/26/19 05:00 Phosphorus 4.90 mg/dL (2.5-4.5) H 05/02/19 00:06 Magnesium 2.30 mg/dL (1.7-2.3) 05/02/19 00:06 Total Bilirubin 0.20 mg/dL (0.1-1.2) 05/10/19 05:00 AST 34 units/L (5-40) 05/10/19 05:00 ALT 35 units/L (7-56) 05/10/19 05:00 Alkaline Phosphatase 45 units/L (35-129) 05/10/19 05:00 Total Creatine Kinase 131 units/L (55-170) 05/02/19 04:41 CK-MB (CK-2) 5.2 ng/mL (0.0-4.0) H 05/02/19 04:41 CK-MB (CK-2) Rel Index 3.9 (0-4) 05/02/19 04:41 Troponin T 0.067 ng/mL (0.00-0.029) H D 05/02/19 04:41 NT-Pro-B Natriuret Pep 6831 pg/mL (0-450) H 05/01/19 Unknown Total Protein 6.1 g/dL (6.3-8.2) L 05/10/19 05:00 Albumin 2.5 g/dL (3.9-5) L 05/10/19 05:00 Albumin/Globulin Ratio 0.7 % 05/10/19 05:00 Triglycerides 173 mg/dL (2-149) H 05/17/19 Unknown Cholesterol 173 mg/dL (50-199) 05/02/19 00:06 LDL Cholesterol Direct 126 mg/dL (50-130) 05/02/19 00:06 HDL Cholesterol 18 mg/dL (40-59) L 05/02/19 00:06 Cholesterol/HDL Ratio 9.61 % 05/02/19 00:06 Procalcitonin 0.54 ng/mL (<0.15) 05/03/19 11:52 Urine Color Yellow (Yellow) 05/20/19 12:00 Urine Turbidity Cloudy (Clear) 05/20/19 12:00 Urine pH 5.0 (5.0-7.0) 05/20/19 12:00 Ur Specific [place] 1.015 (1.003-1.030) 05/20/19 12:00 Urine Protein 30 mg/dl mg/dL (Negative) 05/20/19 12:00 Urine Glucose (UA) Neg mg/dL (Negative) 05/20/19 12:00 Urine Ketones Neg mg/dL (Negative) 05/20/19 12:00 Urine Blood Lg (Negative) 05/20/19 12:00 Urine Nitrite Neg (Negative) 05/20/19 12:00 Urine Bilirubin Neg (Negative) 05/20/19 12:00 Urine Urobilinogen < 2.0 mg/dL (<2.0) 05/20/19 12:00 Ur Leukocyte Esterase Mod (Negative) 05/20/19 12:00 Urine WBC (Auto) 26.0 /HPF (0.0-6.0) H 05/20/19 12:00 Urine RBC (Auto) 83.0 /HPF (0.0-6.0) 05/20/19 12:00 Urine Bacteria (Auto) 1+ /HPF (Negative) 05/20/19 12:00 Uric Acid Crystals 3+ 05/03/19 10:55 Urine Mucus Few /HPF 05/20/19 12:00 Urine Yeast (Budding) 3+ /HPF 05/20/19 12:00 Urine Creatinine 292.8 mg/dL (0.1-20.0) H 05/07/19 22:40 Urine Sodium 11 mmol/L 05/07/19 22:40 Urine Total Protein 269 mg/dL (5-11.8) H 05/07/19 22:40 Vancomycin Trough 20.5 ug/mL (5.0-20.0) H 05/15/19 09:00 Random Vancomycin 11.5 ug/mL (0-40.0) 05/27/19 06:00 AMNA Screen Negative (Negative) 05/07/19 13:45 Hepatitis A IgM Ab Non-reactive (NonReactive) 05/07/19 13:45 Hep Bs Antigen Non-reactive (Negative) 05/07/19 13:45 Hep B Core IgM Ab Non-reactive (NonReactive) 05/07/19 13:45 Hepatitis C Antibody Non-reactive (NonReactive) 05/07/19 13:45 Active Medications - Current Medications Current Medications: Generic Name Dose Route Start Last Admin Trade Name Freq PRN Reason Stop Dose Admin Acetaminophen 650 mg 05/01/19 22:46 05/26/19 18:59 Tylenol PO 650 mg Q4H PRN Administration Pain MILD(1-3)/Fever >100.5/FREEMAN Albumin Human 25 gm 05/19/19 10:47 Alburx 25% (Albumin) IV ARIANE PRN Hypotension Alteplase, Recombinant 2 mg 05/25/19 09:30 05/27/19 10:50 Cathflo IV 2 mg ARIANE PRN Administration LINE FLUSH Lipase/Protease/Amylase 1 each 05/14/19 15:[address] 10,500 Unit FEEDTUBE PRN PRN For Clogged Feeding Tube Dextrose 50 gm 05/01/19 20:24 D50w (25gm) Vial IV Q30MIN PRN Hypoglycemia Protocol Enoxaparin Sodium 30 mg 05/16/19 10:00 05/28/19 10:03 Enoxaparin SUB-Q 30 mg QDAY VICKEY Administration Epoetin Hugo 10,000 unit 05/19/19 10:47 Procrit IV ARIANE PRN hemodialysis Famotidine 20 mg 05/16/19 10:00 05/28/19 10:03 Pepcid PO 20 mg DAILY VICKEY Administration Hydralazine HCl 20 mg 05/13/19 08:09 05/14/19 18:09 Apresoline IV 20 mg Q4HR PRN Administration SBP >/=160 Hydrophilic Ointment 1 applic 05/01/19 21:14 Vaseline Lip Therapy TP Q2HR PRN Dry Lips Fentanyl Citrate 2,000 mcg in 100 mls @ 10.195 mls/hr 05/01/19 22:00 05/28/19 10:02 Fentanyl Drip Premix IV 2 mcg/kg/hr TITR VICKEY 20.39 mls/hr Administration Protocol 1 MCG/KG/HR Propofol 1,000 mg in 100 mls @ 7.011 mls/hr 05/03/19 04:00 05/28/19 06:35 Diprivan 10 Mg/Ml IV 10 mcg/kg/min TITR VICKEY 14.022 mls/hr Administration Protocol 5 MCG/KG/MIN Norepinephrine 4 mg in 250 mls @ 7.5 mls/hr 05/03/19 18:00 05/20/19 08:04 Levophed Drip 4 Mg/Ns 250 Ml IV 0 mcg/min TITR VICKEY 0 mls/hr Titration Protocol 2 MCG/MIN Sodium Chloride 500 mls @ 10 mls/hr 05/06/19 15:00 Nacl 0.9% 500 Ml IV DIRECT VICKEY Nicardipine HCl 50 mg/ Sodium 250 mls @ 25 mls/hr 05/13/19 10:00 05/14/19 23:12 Chloride IV 0 mg/hr TITR VICKEY 0 mls/hr Titration Protocol 5 MG/HR Sodium Chloride 100 mls @ 999 mls/hr 05/19/19 10:47 05/20/19 08:14 Nacl 0.9% IV 999 mls/hr ARIANE PRN Administration Hypotension Labetalol HCl 100 mg 05/14/19 14:00 05/28/19 06:33 Labetalol PO Not Given Q8HR VICKEY Levetiracetam 750 mg 05/13/19 10:00 05/28/19 10:03 Keppra PO 750 mg BID VICKEY Administration Lorazepam 2 mg 05/06/19 06:22 05/10/19 16:17 Ativan IV 2 mg Q4H PRN Administration Seizures/AGITATION Multi-Ingred Cream/Lotion/Oil/Oint 1 applic 05/01/19 21:14 Artificial Tears Ophth Oint OU Q4HR PRN Dry Eye(s) Ondansetron HCl 4 mg 05/01/19 22:46 Zofran IV Q8H PRN Nausea And Vomiting Scopolamine 1 each 05/20/19 12:00 05/20/19 12:52 Transderm-Scop TD 1 each Q72HR VICKEY Administration Simple Syrup 15 ml 05/14/19 15:01 Simple Syrup FEEDTUBE PRN PRN Hypoglycemia Simple Syrup 30 ml 05/14/19 15:01 Simple Syrup FEEDTUBE PRN PRN Hypoglycemia Sodium Bicarbonate 325 mg 05/14/19 15:01 Sodium Bicarbonate FEEDTUBE PRN PRN For Clogged Feeding Tube Sodium Chloride 10 ml 05/02/19 10:00 05/28/19 10:07 Sodium Chloride Flush Syringe 10 Ml IV 10 ml BID VICKEY Administration Sodium Chloride 10 ml 05/01/19 22:46 05/05/19 02:28 Sodium Chloride Flush Syringe 10 Ml IV 10 ml PRN PRN Administration LINE FLUSH Nutrition/Malnutrition Assess - Dietary Evaluation Nutrition/Malnutrition Findings: Nutrition Notes Start: 05/04/19 12:54 Freq: Status: Active Protocol: Document 05/21/19 10:08 LM (Rec: 05/21/19 10:26 LM [email or web address]) Nutrition Notes Initial or Follow up Reassessment Current Diagnosis Acute Kidney Injury,Sepsis, Respiratory Failure Current Diet Nepro 1.8 at 50 ml/hr Labs/Tests Na 137 BUN 102 Cr 7 BG 103 Pertinent Medications Propofol at 7.011 ml/hr (185 kcal) Height 6 ft 4 in Weight 261.4 kg [place] Body Weight (kg) 91.81 BMI 70.1 Weight change and time frame Wt change noted. Likely due to fluid Weight Status Morbidly Obese Subjective/Other Information Nepro running at 50 ml/hr at time of visit. Will keep flush at 150 ml q4h until Na increases. Pt received HD on 05/20. Pt tolerating TF. Percent of energy/protein needs met: 86%/43% Burn Absent Trauma Absent Current % PO Negligible Minimum of two criteria No physical signs of malnutrition #1 Nutrition Diagnosis Inadequate oral intake Diagnosis Progress(for reassessment Continues documentation) Is patient on ventilator? Yes Is Patient Ambulatory and/or Out of Bed No REE-([facility]-confined to bed) 4392.636 Kcal/Kg value to use for calculation 11 Approximate Energy Requirements Using 2875 kcal/Kg Calculation Used for Recommendations Kcal/kg Additional Notes Energy needs: 2503 kcal PRO needs: 225 g (up to 2.5 g/ kg 91.81 IBW) Fluid needs: 1 ml/kcal Nutrition Intervention Change Diet Order: Continue TF Nutrition Support: Nepro 1.8 at 50 ml/hr flush 150 ml q4hr for hyponatremia flush 200 ml q4h once hyponatremia resolves Kcal 2,160 Protein (gm) 97 Fluid (mL) 872 Goal #1 TF tolerance Goal #2 Meet at least 75% kcal/PRO needs via TF Anticipated Discharge Needs: Unable to determine at this time Follow-Up By: 05/28/19 Additional Comments F/U for TF tolerance/Na lab
--- NOTE | 2019-05-28 11:55 | Progress Note ---
Assessment and Plan 34 y/o male with acute hypoxic, hypercapnic respiratory failure currently ventilated and sedated, now with persistent fevers and seizure and on HD 05/28/19: Dropped PEEP to 16. Patient tolerating so far. Will get HD again to [facility]. Spoke with RT and will reassess around 1600. If still satting 99 may drop PEEP by 2 only again later today. 1. ID: Patient unable to fit in scanner so CT of head sinus, chest will not happen. ID has placed back on renally adjusted Vanc. he has grown out jarad from urine and a tracheal aspirate 2. Pulm: FIO2 now @ 40%. ABG was good. Will wean after HD today. Can start to come down on PEEP. Will drop to 16 starting tomorrow. 3. Renal: HD per renal, will need permacath per vascular notes if patient can be afebrile. 4. Day number of 23 of intubation. 5. Trying to avoid trach as much as possible. He is on his fourth week of int ubation. However still requiring high levels of PEEP. At this point, once weaned to normal PEEP levels, hoping that we can extubate. CCT 31 minutes. Subjective Date of service: 05/28/19 Principal diagnosis: HF; acute hypoxemic resp failure, SIRS, CARLA Interval history: No acute events. PaO2 is 94 this am on 40% Objective Vital Signs - 12hr 05/27/19 05/28/19 05/28/19 23:56 00:00 00:15 Temperature Pulse Rate 73 82 91 H Pulse Rate [ 90 From Monitor] Respiratory 6 L 19 Rate Blood Pressure 118/34 122/43 138/69 O2 Sat by Pulse 98 96 96 Oximetry 05/28/19 05/28/19 05/28/19 00:31 00:45 01:00 Temperature Pulse Rate 99 H 92 H Pulse Rate [ From Monitor] Respiratory 11 L 25 H Rate Blood Pressure 138/69 93/40 142/52 O2 Sat by Pulse 93 95 96 Oximetry 05/28/19 05/28/19 05/28/19 01:15 01:30 01:45 Temperature Pulse Rate 95 H 93 H 95 H Pulse Rate [ From Monitor] Respiratory 26 H 25 H 26 H Rate Blood Pressure 135/57 141/48 146/50 O2 Sat by Pulse 95 91 88 Oximetry 05/28/19 05/28/19 05/28/19 02:00 02:15 02:30 Temperature Pulse Rate 84 84 82 Pulse Rate [ From Monitor] Respiratory 25 H 25 H 25 H Rate Blood Pressure 140/42 132/44 131/39 O2 Sat by Pulse 95 96 96 Oximetry 05/28/19 05/28/19 05/28/19 02:45 03:00 03:15 Temperature Pulse Rate 83 82 82 Pulse Rate [ From Monitor] Respiratory 25 H 25 H 23 Rate Blood Pressure 135/43 129/40 127/39 O2 Sat by Pulse 97 97 97 Oximetry 05/28/19 05/28/19 05/28/19 03:30 03:31 03:45 Temperature 99.1 F Pulse Rate 96 H 86 Pulse Rate [ From Monitor] Respiratory 25 H 25 H Rate Blood Pressure 138/59 145/55 O2 Sat by Pulse 97 Oximetry 05/28/19 05/28/19 05/28/19 04:00 04:15 04:31 Temperature Pulse Rate 83 83 83 Pulse Rate [ 90 From Monitor] Respiratory 25 H 25 H 25 H Rate Blood Pressure 130/42 134/38 117/33 O2 Sat by Pulse 96 95 97 Oximetry 05/28/19 05/28/19 05/28/19 04:45 05:00 05:15 Temperature Pulse Rate 80 78 79 Pulse Rate [ From Monitor] Respiratory 25 H 25 H 25 H Rate Blood Pressure 115/28 115/28 114/35 O2 Sat by Pulse 98 99 98 Oximetry 05/28/19 05/28/19 05/28/19 05:30 05:45 06:00 Temperature Pulse Rate 77 79 76 Pulse Rate [ From Monitor] Respiratory 25 H 25 H 25 H Rate Blood Pressure 112/34 105/33 107/38 O2 Sat by Pulse 98 99 100 Oximetry 05/28/19 05/28/19 05/28/19 06:15 06:30 06:33 Temperature Pulse Rate 78 79 78 Pulse Rate [ From Monitor] Respiratory 25 H 25 H Rate Blood Pressure 113/33 112/43 112/43 O2 Sat by Pulse 99 98 Oximetry 05/28/19 05/28/19 05/28/19 06:45 07:00 07:15 Temperature Pulse Rate 79 92 H 94 H Pulse Rate [ From Monitor] Respiratory 25 H 25 H 23 Rate Blood Pressure 116/39 123/39 131/43 O2 Sat by Pulse 98 98 98 Oximetry 05/28/19 05/28/1905/28/20 07:30 07:45 07:53 Temperature Pulse Rate 94 H 90 93 H Pulse Rate [ From Monitor] Respiratory 25 H 25 H Rate Blood Pressure 124/41 119/37 119/37 O2 Sat by Pulse 96 96 98 Oximetry 05/28/19 05/28/19 05/28/19 08:00 08:15 08:30 Temperature Pulse Rate 89 87 Pulse Rate [ 91 H From Monitor] Respiratory 25 H 23 Rate Blood Pressure 119/35 123/41 117/39 O2 Sat by Pulse 97 97 97 Oximetry 05/28/19 05/28/19 05/28/19 08:45 09:00 09:15 Temperature Pulse Rate 84 83 82 Pulse Rate [ From Monitor] Respiratory 25 H 23 26 H Rate Blood Pressure 112/38 117/37 112/36 O2 Sat by Pulse 98 98 99 Oximetry 05/28/19 05/28/19 05/28/19 09:30 09:45 10:00 Temperature Pulse Rate 83 92 H 95 H Pulse Rate [ From Monitor] Respiratory 25 H 25 H 22 Rate Blood Pressure 117/41 124/47 129/47 O2 Sat by Pulse 98 97 96 Oximetry 05/28/19 05/28/19 05/28/19 10:15 10:30 10:45 Temperature Pulse Rate 96 H 89 85 Pulse Rate [ From Monitor] Respiratory 26 H 25 H 25 H Rate Blood Pressure 132/49 123/36 115/33 O2 Sat by Pulse 96 95 96 Oximetry 05/28/19 11:00 Temperature Pulse Rate 84 Pulse Rate [ From Monitor] Respiratory 25 H Rate Blood Pressure 113/35 O2 Sat by Pulse 97 Oximetry Constitutional: other (morbidly obese male, sedated on vent, orally intubated) Eyes: non-icteric ENT: oropharynx moist Neck: other (extremely large in circumference) Effort: normal Ascultation: Bilateral: diminished breath sounds (secondary to body habitus) Cardiovascular: regular rate and rhythm (no mrg) Gastrointestinal: normoactive bowel sounds, non-tender, other (obese) Integumentary: other (L hand is wrapped) Extremities: no cyanosis, pink and warm, other (1+ generalized edema) Neurologic: unable to assess Psychiatric: other (unable to assess) CBC and BMP: 05/26/19 05:00 05/26/19 05:00 ABG, PT/INR, D-dimer: ABG POC ABG pH 7.323 (7.35-7.45) L 05/28/19 04:47 ABG pH 7.284 pH Units (7.350-7.450) L 05/27/19 04:48 POC ABG pCO2 56.2 (35-45) H 05/28/19 04:47 ABG pCO2 53.7 mm Hg 05/27/19 04:48 POC ABG pO2 94 (80-105) 05/28/19 04:47 ABG pO2 71.6 mm Hg (80.0-90.0) L 05/27/19 04:48 POC ABG HCO3 29.1 (22-26 mml/L) 05/28/19 04:47 POC ABG Total CO2 31 (23-27mmol/L) 05/28/19 04:47 POC ABG O2 Sat 96 05/28/19 04:47 ABG O2 Saturation 92.0 % (95.0-99.0) L 05/27/19 04:48 PT/INR, D-dimer PT 15.4 Sec. (12.2-14.9) H 05/01/19 Unknown INR 1.23 (0.87-1.13) H 05/01/19 Unknown Abnormal lab findings: Abnormal Labs 05/01/19 05/01/19 05/01/19 17:50 19:26 22:36 WBC RBC Hgb Hct MCV MCH MCHC RDW Lymph % (Auto) [place] % (Auto) Eos % (Auto) Lymph # [place] # Eos # Seg Neutrophils % Seg Neuts % (Manual) Lymphocytes % (Manual) Monocytes % (Manual) Eosinophils % (Manual) Nucleated RBC % Seg Neutrophils # Lymphocytes # (Manual) Monocytes # (Manual) Eosinophils # (Manual) PT INR APTT POC ABG pH 7.272 L 7.331 L ABG pH POC ABG pCO2 52.8 H POC ABG pO2 ABG pO2 ABG HCO3 ABG O2 Saturation ABG Base Excess ABG Hemoglobin Oxyhemoglobin Sodium 136 L Potassium 6.5 H* Chloride 97.2 L Carbon Dioxide BUN 60 H Creatinine Glucose 113 H POC Glucose Uric Acid Calcium Phosphorus Magnesium 2.40 H AST 139 H ALT 154 H Total Creatine Kinase CK-MB (CK-2) Troponin T NT-Pro-B Natriuret Pep Total Protein Albumin 3.8 L Triglycerides HDL Cholesterol Urine WBC (Auto) Urine Creatinine Urine Total Protein Vancomycin Trough 05/01/19 05/01/19 05/01/19 Unknown Unknown Unknown WBC 16.1 H RBC Hgb Hct MCV MCH MCHC RDW 17.2 H Lymph % (Auto) [place] % (Auto) 9.6 H Eos % (Auto) Lymph # [place] # 1.5 H Eos # Seg Neutrophils % 73.0 H Seg Neuts % (Manual) Lymphocytes % (Manual) Monocytes % (Manual) Eosinophils % (Manual) Nucleated RBC % Seg Neutrophils # 11.7 H Lymphocytes # (Manual) Monocytes # (Manual) Eosinophils # (Manual) PT 15.4 H INR 1.23 H APTT 22.7 L POC ABG pH ABG pH POC ABG pCO2 POC ABG pO2 ABG pO2 ABG HCO3 ABG O2 Saturation ABG Base Excess ABG Hemoglobin Oxyhemoglobin Sodium Potassium Chloride Carbon Dioxide BUN Creatinine Glucose POC Glucose Uric Acid Calcium Phosphorus Magnesium AST ALT Total Creatine Kinase CK-MB (CK-2) Troponin T NT-Pro-B Natriuret Pep 6831 H Total Protein Albumin Triglycerides HDL Cholesterol Urine WBC (Auto) Urine Creatinine Urine Total Protein Vancomycin Trough 05/01/19 05/02/19 05/02/19 Unknown 00:06 00:06 WBC RBC Hgb Hct MCV MCH MCHC RDW Lymph % (Auto) [place] % (Auto) Eos % (Auto) Lymph # [place] # Eos # Seg Neutrophils % Seg Neuts % (Manual) Lymphocytes % (Manual) Monocytes % (Manual) Eosinophils % (Manual) Nucleated RBC % Seg Neutrophils # Lymphocytes # (Manual) Monocytes # (Manual) Eosinophils # (Manual) PT INR APTT POC ABG pH ABG pH POC ABG pCO2 POC ABG pO2 ABG pO2 ABG HCO3 ABG O2 Saturation ABG Base Excess ABG Hemoglobin Oxyhemoglobin Sodium Potassium Chloride Carbon Dioxide BUN Creatinine Glucose POC Glucose Uric Acid Calcium Phosphorus 4.90 H Magnesium AST ALT Total Creatine Kinase 226 H CK-MB (CK-2) 5.7 H Troponin T 0.044 H NT-Pro-B Natriuret Pep Total Protein Albumin Triglycerides 182 H HDL Cholesterol 18 L Urine WBC (Auto) Urine Creatinine Urine Total Protein Vancomycin Trough 05/02/19 05/02/19 05/02/19 02:08 04:40 04:41 WBC 17.6 H RBC Hgb Hct MCV MCH 27 L MCHC RDW 17.4 H Lymph % (Auto) 10.2 L [place] % (Auto) 11.0 H Eos % (Auto) Lymph # [place] # 1.9 H Eos # Seg Neutrophils % 78.0 H Seg Neuts % (Manual) Lymphocytes % (Manual) Monocytes % (Manual) Eosinophils % (Manual) Nucleated RBC % Seg Neutrophils # 13.8 H Lymphocytes # (Manual) Monocytes # (Manual) Eosinophils # (Manual) PT INR APTT POC ABG pH ABG pH POC ABG pCO2 46.8 H POC ABG pO2 63 L ABG pO2 ABG HCO3 ABG O2 Saturation ABG Base Excess ABG Hemoglobin Oxyhemoglobin Sodium Potassium Chloride 96.3 L Carbon Dioxide BUN 63 H Creatinine 1.7 H Glucose POC Glucose Uric Acid Calcium Phosphorus Magnesium AST ALT Total Creatine Kinase CK-MB (CK-2) Troponin T NT-Pro-B Natriuret Pep Total Protein Albumin Triglycerides HDL Cholesterol Urine WBC (Auto) Urine Creatinine Urine Total Protein Vancomycin Trough 05/02/19 05/02/19 05/02/19 04:41 04:41 16:05 WBC RBC Hgb Hct MCV MCH MCHC RDW Lymph % (Auto) [place] % (Auto) Eos % (Auto) Lymph # [place] # Eos # Seg Neutrophils % Seg Neuts % (Manual) Lymphocytes % (Manual) Monocytes % (Manual) Eosinophils % (Manual) Nucleated RBC % Seg Neutrophils # Lymphocytes # (Manual) Monocytes # (Manual) Eosinophils # (Manual) PT INR APTT POC ABG pH ABG pH POC ABG pCO2 POC ABG pO2 ABG pO2 66.6 L ABG HCO3 31.9 H ABG O2 Saturation 92.5 L ABG Base Excess 5.8 H ABG Hemoglobin 13.3 L Oxyhemoglobin 90.6 L Sodium Potassium Chloride 97.2 L Carbon Dioxide BUN 61 H Creatinine 1.8 H Glucose POC Glucose Uric Acid Calcium Phosphorus Magnesium AST ALT Total Creatine Kinase CK-MB (CK-2) 5.2 H Troponin T 0.067 H D NT-Pro-B Natriuret Pep Total Protein Albumin Triglycerides HDL Cholesterol Urine WBC (Auto) Urine Creatinine Urine Total Protein Vancomycin Trough 05/02/19 05/03/19 05/03/19 20:39 04:35 05:05 WBC 11.8 H RBC Hgb Hct MCV MCH 27 L MCHC 31 L RDW 17.2 H Lymph % (Auto) [place] % (Auto) Eos % (Auto) Lymph # [place] # Eos # Seg Neutrophils % Seg Neuts % (Manual) Lymphocytes % (Manual) Monocytes % (Manual) Eosinophils % (Manual) Nucleated RBC % Seg Neutrophils # Lymphocytes # (Manual) Monocytes # (Manual) Eosinophils # (Manual) PT INR APTT POC ABG pH ABG pH POC ABG pCO2 53.6 H 54.0 H POC ABG pO2 55 L 63 L ABG pO2 ABG HCO3 ABG O2 Saturation ABG Base Excess ABG Hemoglobin Oxyhemoglobin Sodium Potassium Chloride Carbon Dioxide BUN Creatinine Glucose POC Glucose Uric Acid Calcium Phosphorus Magnesium AST ALT Total Creatine Kinase CK-MB (CK-2) Troponin T NT-Pro-B Natriuret Pep Total Protein Albumin Triglycerides HDL Cholesterol Urine WBC (Auto) Urine Creatinine Urine Total Protein Vancomycin Trough 05/03/19 05/03/19 05/03/19 05:05 10:55 16:48 WBC RBC Hgb Hct MCV MCH MCHC RDW Lymph % (Auto) [place] % (Auto) Eos % (Auto) Lymph # [place] # Eos # Seg Neutrophils % Seg Neuts % (Manual) Lymphocytes % (Manual) Monocytes % (Manual) Eosinophils % (Manual) Nucleated RBC % Seg Neutrophils # Lymphocytes # (Manual) Monocytes # (Manual) Eosinophils # (Manual) PT INR APTT POC ABG pH 7.604 H ABG pH POC ABG pCO2 POC ABG pO2 58 L ABG pO2 ABG HCO3 ABG O2 Saturation ABG Base Excess ABG Hemoglobin Oxyhemoglobin Sodium Potassium Chloride Carbon Dioxide BUN 52 H Creatinine 1.9 H Glucose 103 H POC Glucose Uric Acid Calcium Phosphorus Magnesium AST ALT Total Creatine Kinase CK-MB (CK-2) Troponin T NT-Pro-B Natriuret Pep Total Protein Albumin Triglycerides HDL Cholesterol Urine WBC (Auto) 33.0 H Urine Creatinine Urine Total Protein Vancomycin Trough 05/04/19 05/04/19 05/04/19 04:49 06:50 06:50 WBC 16.0 H RBC Hgb Hct MCV MCH 27 L MCHC 31 L RDW 17.8 H Lymph % (Auto) [place] % (Auto) Eos % (Auto) Lymph # [place] # Eos # Seg Neutrophils % Seg Neuts % (Manual) Lymphocytes % (Manual) Monocytes % (Manual) Eosinophils % (Manual) Nucleated RBC % Seg Neutrophils # Lymphocytes # (Manual) Monocytes # (Manual) Eosinophils # (Manual) PT INR APTT POC ABG pH 7.273 L ABG pH POC ABG pCO2 POC ABG pO2 ABG pO2 ABG HCO3 ABG O2 Saturation ABG Base Excess ABG Hemoglobin Oxyhemoglobin Sodium 148 H Potassium 5.5 H Chloride Carbon Dioxide BUN 53 H Creatinine 3.3 H D Glucose 106 H POC Glucose Uric Acid Calcium 8.3 L Phosphorus Magnesium AST ALT Total Creatine Kinase CK-MB (CK-2) Troponin T NT-Pro-B Natriuret Pep Total Protein Albumin Triglycerides HDL Cholesterol Urine WBC (Auto) Urine Creatinine Urine Total Protein Vancomycin Trough 05/05/19 05/05/19 05/05/19 00:05 04:30 05:00 WBC RBC Hgb Hct MCV MCH MCHC RDW Lymph % (Auto) [place] % (Auto) Eos % (Auto) Lymph # [place] # Eos # Seg Neutrophils % Seg Neuts % (Manual) Lymphocytes % (Manual) Monocytes % (Manual) Eosinophils % (Manual) Nucleated RBC % Seg Neutrophils # Lymphocytes # (Manual) Monocytes # (Manual) Eosinophils # (Manual) PT INR APTT POC ABG pH 7.225 L ABG pH POC ABG pCO2 > 70 H POC ABG pO2 ABG pO2 ABG HCO3 ABG O2 Saturation ABG Base Excess ABG Hemoglobin Oxyhemoglobin Sodium 151 H Potassium 5.1 H Chloride Carbon Dioxide BUN 64 H Creatinine 3.5 H Glucose 117 H POC Glucose 141 H Uric Acid Calcium 7.5 L Phosphorus Magnesium AST 93 H ALT 65 H Total Creatine Kinase CK-MB (CK-2) Troponin T NT-Pro-B Natriuret Pep Total Protein Albumin 2.9 L Triglycerides HDL Cholesterol Urine WBC (Auto) Urine Creatinine Urine Total Protein Vancomycin Trough 05/05/19 05/05/19 05/05/19 05:00 12:02 17:46 WBC 12.0 H RBC Hgb 11.3 L Hct MCV MCH 27 L MCHC 30 L RDW 18.4 H Lymph % (Auto) 7.9 L [place] % (Auto) 10.2 H Eos % (Auto) Lymph # 1.0 L [place] # 1.2 H Eos # Seg Neutrophils % 80.8 H Seg Neuts % (Manual) Lymphocytes % (Manual) Monocytes % (Manual) Eosinophils % (Manual) Nucleated RBC % Seg Neutrophils # 9.7 H Lymphocytes # (Manual) Monocytes # (Manual) Eosinophils # (Manual) PT INR APTT POC ABG pH ABG pH POC ABG pCO2 POC ABG pO2 ABG pO2 ABG HCO3 ABG O2 Saturation ABG Base Excess ABG Hemoglobin Oxyhemoglobin Sodium Potassium Chloride Carbon Dioxide BUN Creatinine Glucose POC Glucose 125 H 112 H Uric Acid Calcium Phosphorus Magnesium AST ALT Total Creatine Kinase CK-MB (CK-2) Troponin T NT-Pro-B Natriuret Pep Total Protein Albumin Triglycerides HDL Cholesterol Urine WBC (Auto) Urine Creatinine Urine Total Protein Vancomycin Trough 05/05/19 05/06/19 05/06/19 23:42 03:58 04:45 WBC 11.4 H RBC Hgb 10.7 L Hct 34.2 L MCV MCH 27 L MCHC 31 L RDW 16.9 H Lymph % (Auto) [place] % (Auto) Eos % (Auto) Lymph # [place] # Eos # Seg Neutrophils % Seg Neuts % (Manual) Lymphocytes % (Manual) Monocytes % (Manual) Eosinophils % (Manual) Nucleated RBC % Seg Neutrophils # Lymphocytes # (Manual) Monocytes # (Manual) Eosinophils # (Manual) PT INR APTT POC ABG pH ABG pH POC ABG pCO2 62.4 H POC ABG pO2 111 H ABG pO2 ABG HCO3 ABG O2 Saturation ABG Base Excess ABG Hemoglobin Oxyhemoglobin Sodium Potassium Chloride Carbon Dioxide BUN Creatinine Glucose POC Glucose 128 H Uric Acid Calcium Phosphorus Magnesium AST ALT Total Creatine Kinase CK-MB (CK-2) Troponin T NT-Pro-B Natriuret Pep Total Protein Albumin Triglycerides HDL Cholesterol Urine WBC (Auto) Urine Creatinine Urine Total Protein Vancomycin Trough 05/06/19 05/06/19 05/06/19 04:45 05:33 12:30 WBC RBC Hgb Hct MCV MCH MCHC RDW Lymph % (Auto) [place] % (Auto) Eos % (Auto) Lymph # [place] # Eos # Seg Neutrophils % Seg Neuts % (Manual) Lymphocytes % (Manual) Monocytes % (Manual) Eosinophils % (Manual) Nucleated RBC % Seg Neutrophils # Lymphocytes # (Manual) Monocytes # (Manual) Eosinophils # (Manual) PT INR APTT POC ABG pH ABG pH POC ABG pCO2 POC ABG pO2 ABG pO2 ABG HCO3 ABG O2 Saturation ABG Base Excess ABG Hemoglobin Oxyhemoglobin Sodium 149 H Potassium Chloride Carbon Dioxide 31 H BUN 67 H Creatinine 3.2 H Glucose 125 H POC Glucose 117 H 116 H Uric Acid Calcium 7.5 L Phosphorus Magnesium AST ALT Total Creatine Kinase CK-MB (CK-2) Troponin T NT-Pro-B Natriuret Pep Total Protein Albumin Triglycerides HDL Cholesterol Urine WBC (Auto) Urine Creatinine Urine Total Protein Vancomycin Trough 05/06/19 05/06/19 05/07/19 18:34 23:16 05:22 WBC RBC Hgb Hct MCV MCH MCHC RDW Lymph % (Auto) [place] % (Auto) Eos % (Auto) Lymph # [place] # Eos # Seg Neutrophils % Seg Neuts % (Manual) Lymphocytes % (Manual) Monocytes % (Manual) Eosinophils % (Manual) Nucleated RBC % Seg Neutrophils # Lymphocytes # (Manual) Monocytes # (Manual) Eosinophils # (Manual) PT INR APTT POC ABG pH ABG pH POC ABG pCO2 POC ABG pO2 ABG pO2 ABG HCO3 ABG O2 Saturation ABG Base Excess ABG Hemoglobin Oxyhemoglobin Sodium Potassium Chloride Carbon Dioxide BUN Creatinine Glucose POC Glucose 128 H 143 H 166 H Uric Acid Calcium Phosphorus Magnesium AST ALT Total Creatine Kinase CK-MB (CK-2) Troponin T NT-Pro-B Natriuret Pep Total Protein Albumin Triglycerides HDL Cholesterol Urine WBC (Auto) Urine Creatinine Urine Total Protein Vancomycin Trough 05/07/19 05/07/19 05/07/19 06:33 07:03 09:35 WBC RBC Hgb Hct MCV MCH MCHC RDW Lymph % (Auto) [place] % (Auto) Eos % (Auto) Lymph # [place] # Eos # Seg Neutrophils % Seg Neuts % (Manual) Lymphocytes % (Manual) Monocytes % (Manual) Eosinophils % (Manual) Nucleated RBC % Seg Neutrophils # Lymphocytes # (Manual) Monocytes # (Manual) Eosinophils # (Manual) PT INR APTT POC ABG pH 7.263 L 7.288 L ABG pH POC ABG pCO2 POC ABG pO2 51 L 56 L ABG pO2 ABG HCO3 ABG O2 Saturation ABG Base Excess ABG Hemoglobin Oxyhemoglobin Sodium Potassium Chloride Carbon Dioxide BUN 76 H Creatinine 3.2 H Glucose 147 H POC Glucose Uric Acid Calcium 7.9 L Phosphorus Magnesium AST ALT Total Creatine Kinase CK-MB (CK-2) Troponin T NT-Pro-B Natriuret Pep Total Protein Albumin Triglycerides HDL Cholesterol Urine WBC (Auto) Urine Creatinine Urine Total Protein Vancomycin Trough 05/07/19 05/07/19 05/07/19 09:35 12:17 13:45 WBC 13.4 H RBC Hgb 11.6 L Hct MCV MCH 27 L MCHC 31 L RDW 17.5 H Lymph % (Auto) [place] % (Auto) Eos % (Auto) Lymph # [place] # Eos # Seg Neutrophils % Seg Neuts % (Manual) Lymphocytes % (Manual) Monocytes % (Manual) Eosinophils % (Manual) Nucleated RBC % Seg Neutrophils # Lymphocytes # (Manual) Monocytes # (Manual) Eosinophils # (Manual) PT INR APTT POC ABG pH ABG pH POC ABG pCO2 POC ABG pO2 ABG pO2 ABG HCO3 ABG O2 Saturation ABG Base Excess ABG Hemoglobin Oxyhemoglobin Sodium Potassium Chloride Carbon Dioxide BUN Creatinine Glucose POC Glucose 130 H Uric Acid 18.0 H Calcium Phosphorus Magnesium AST ALT Total Creatine Kinase CK-MB (CK-2) Troponin T NT-Pro-B Natriuret Pep Total Protein Albumin Triglycerides HDL Cholesterol Urine WBC (Auto) Urine Creatinine Urine Total Protein Vancomycin Trough 05/07/19 05/07/19 05/08/19 17:39 22:40 05:06 WBC RBC Hgb Hct MCV MCH MCHC RDW Lymph % (Auto) [place] % (Auto) Eos % (Auto) Lymph # [place] # Eos # Seg Neutrophils % Seg Neuts % (Manual) Lymphocytes % (Manual) Monocytes % (Manual) Eosinophils % (Manual) Nucleated RBC % Seg Neutrophils # Lymphocytes # (Manual) Monocytes # (Manual) Eosinophils # (Manual) PT INR APTT POC ABG pH ABG pH POC ABG pCO2 POC ABG pO2 ABG pO2 ABG HCO3 ABG O2 Saturation ABG Base Excess ABG Hemoglobin Oxyhemoglobin Sodium Potassium Chloride Carbon Dioxide BUN Creatinine Glucose POC Glucose 116 H 148 H Uric Acid Calcium Phosphorus Magnesium AST ALT Total Creatine Kinase CK-MB (CK-2) Troponin T NT-Pro-B Natriuret Pep Total Protein Albumin Triglycerides HDL Cholesterol Urine WBC (Auto) Urine Creatinine 292.8 H Urine Total Protein 269 H Vancomycin Trough 05/08/19 05/08/19 05/08/19 05:32 11:28 13:48 WBC RBC Hgb Hct MCV MCH MCHC RDW Lymph % (Auto) [place] % (Auto) Eos % (Auto) Lymph # [place] # Eos # Seg Neutrophils % Seg Neuts % (Manual) Lymphocytes % (Manual) Monocytes % (Manual) Eosinophils % (Manual) Nucleated RBC % Seg Neutrophils # Lymphocytes # (Manual) Monocytes # (Manual) Eosinophils # (Manual) PT INR APTT POC ABG pH ABG pH POC ABG pCO2 45.4 H POC ABG pO2 64 L ABG pO2 ABG HCO3 ABG O2 Saturation ABG Base Excess ABG Hemoglobin Oxyhemoglobin Sodium Potassium Chloride Carbon Dioxide BUN 73 H Creatinine 2.7 H Glucose 127 H POC Glucose 107 H Uric Acid Calcium 7.6 L Phosphorus Magnesium AST ALT Total Creatine Kinase CK-MB (CK-2) Troponin T NT-Pro-B Natriuret Pep Total Protein Albumin Triglycerides HDL Cholesterol Urine WBC (Auto) Urine Creatinine Urine Total Protein Vancomycin Trough 05/08/19 05/09/19 05/09/19 17:48 04:50 04:53 WBC RBC 3.07 L Hgb 8.5 L D Hct 29.3 L D MCV 96 H MCH MCHC 29 L RDW 18.1 H Lymph % (Auto) [place] % (Auto) Eos % (Auto) Lymph # [place] # Eos # Seg Neutrophils % Seg Neuts % (Manual) Lymphocytes % (Manual) Monocytes % (Manual) Eosinophils % (Manual) Nucleated RBC % Seg Neutrophils # Lymphocytes # (Manual) Monocytes # (Manual) Eosinophils # (Manual) PT INR APTT POC ABG pH 7.316 L ABG pH POC ABG pCO2 66.0 H POC ABG pO2 69 L ABG pO2 ABG HCO3 ABG O2 Saturation ABG Base Excess ABG Hemoglobin Oxyhemoglobin Sodium Potassium Chloride Carbon Dioxide BUN Creatinine Glucose POC Glucose 155 H Uric Acid Calcium Phosphorus Magnesium AST ALT Total Creatine Kinase CK-MB (CK-2) Troponin T NT-Pro-B Natriuret Pep Total Protein Albumin Triglycerides HDL Cholesterol Urine WBC (Auto) Urine Creatinine Urine Total Protein Vancomycin Trough 05/09/19 05/09/19 05/09/19 05:46 07:24 12:10 WBC RBC Hgb Hct MCV MCH MCHC RDW Lymph % (Auto) [place] % (Auto) Eos % (Auto) Lymph # [place] # Eos # Seg Neutrophils % Seg Neuts % (Manual) Lymphocytes % (Manual) Monocytes % (Manual) Eosinophils % (Manual) Nucleated RBC % Seg Neutrophils # Lymphocytes # (Manual) Monocytes # (Manual) Eosinophils # (Manual) PT INR APTT POC ABG pH ABG pH POC ABG pCO2 POC ABG pO2 ABG pO2 ABG HCO3 ABG O2 Saturation ABG Base Excess ABG Hemoglobin Oxyhemoglobin Sodium Potassium Chloride Carbon Dioxide BUN 73 H Creatinine 2.4 H Glucose 153 H POC Glucose 123 H 148 H Uric Acid Calcium 8.2 L Phosphorus Magnesium AST 45 H ALT Total Creatine Kinase CK-MB (CK-2) Troponin T NT-Pro-B Natriuret Pep Total Protein 6.0 L Albumin 1.9 L Triglycerides HDL Cholesterol Urine WBC (Auto) Urine Creatinine Urine Total Protein Vancomycin Trough 05/09/19 05/09/19 05/10/19 18:23 23:26 04:52 WBC RBC Hgb Hct MCV MCH MCHC RDW Lymph % (Auto) [place] % (Auto) Eos % (Auto) Lymph # [place] # Eos # Seg Neutrophils % Seg Neuts % (Manual) Lymphocytes % (Manual) Monocytes % (Manual) Eosinophils % (Manual) Nucleated RBC % Seg Neutrophils # Lymphocytes # (Manual) Monocytes # (Manual) Eosinophils # (Manual) PT INR APTT POC ABG pH 7.305 L ABG pH POC ABG pCO2 62.6 H POC ABG pO2 ABG pO2 ABG HCO3 ABG O2 Saturation ABG Base Excess ABG Hemoglobin Oxyhemoglobin Sodium Potassium Chloride Carbon Dioxide BUN Creatinine Glucose POC Glucose 147 H 121 H Uric Acid Calcium Phosphorus Magnesium AST ALT Total Creatine Kinase CK-MB (CK-2) Troponin T NT-Pro-B Natriuret Pep Total Protein Albumin Triglycerides HDL Cholesterol Urine WBC (Auto) Urine Creatinine Urine Total Protein Vancomycin Trough 05/10/19 05/10/19 05/10/19 05:00 05:00 05:50 WBC RBC Hgb 10.3 L Hct 33.7 L MCV MCH 27 L MCHC 31 L RDW 17.0 H Lymph % (Auto) [place] % (Auto) Eos % (Auto) Lymph # [place] # Eos # Seg Neutrophils % Seg Neuts % (Manual) Lymphocytes % (Manual) Monocytes % (Manual) Eosinophils % (Manual) Nucleated RBC % Seg Neutrophils # Lymphocytes # (Manual) Monocytes # (Manual) Eosinophils # (Manual) PT INR APTT POC ABG pH ABG pH POC ABG pCO2 POC ABG pO2 ABG pO2 ABG HCO3 ABG O2 Saturation ABG Base Excess ABG Hemoglobin Oxyhemoglobin Sodium 147 H Potassium Chloride Carbon Dioxide BUN 70 H Creatinine 2.6 H Glucose 155 H POC Glucose 158 H Uric Acid Calcium 8.2 L Phosphorus Magnesium AST ALT Total Creatine Kinase CK-MB (CK-2) Troponin T NT-Pro-B Natriuret Pep Total Protein 6.1 L Albumin 2.5 L Triglycerides HDL Cholesterol Urine WBC (Auto) Urine Creatinine Urine Total Protein Vancomycin Trough 05/10/19 05/11/19 05/11/19 13:14 07:26 11:40 WBC RBC Hgb Hct MCV MCH MCHC RDW Lymph % (Auto) [place] % (Auto) Eos % (Auto) Lymph # [place] # Eos # Seg Neutrophils % Seg Neuts % (Manual) Lymphocytes % (Manual) Monocytes % (Manual) Eosinophils % (Manual) Nucleated RBC % Seg Neutrophils # Lymphocytes # (Manual) Monocytes # (Manual) Eosinophils # (Manual) PT INR APTT POC ABG pH ABG pH POC ABG pCO2 48.0 H POC ABG pO2 58 L ABG pO2 ABG HCO3 ABG O2 Saturation ABG Base Excess ABG Hemoglobin Oxyhemoglobin Sodium 147 H Potassium Chloride 107.2 H Carbon Dioxide BUN 67 H Creatinine 2.6 H Glucose 121 H POC Glucose 159 H Uric Acid Calcium Phosphorus Magnesium AST ALT Total Creatine Kinase CK-MB (CK-2) Troponin T NT-Pro-B Natriuret Pep Total Protein Albumin Triglycerides HDL Cholesterol Urine WBC (Auto) Urine Creatinine Urine Total Protein Vancomycin Trough 05/11/19 05/11/19 05/12/19 18:13 23:46 04:40 WBC RBC Hgb Hct MCV MCH MCHC RDW Lymph % (Auto) [place] % (Auto) Eos % (Auto) Lymph # [place] # Eos # Seg Neutrophils % Seg Neuts % (Manual) Lymphocytes % (Manual) Monocytes % (Manual) Eosinophils % (Manual) Nucleated RBC % Seg Neutrophils # Lymphocytes # (Manual) Monocytes # (Manual) Eosinophils # (Manual) PT INR APTT POC ABG pH ABG pH 7.264 L POC ABG pCO2 POC ABG pO2 ABG pO2 66.8 L ABG HCO3 31.0 H ABG O2 Saturation 92.0 L ABG Base Excess ABG Hemoglobin 10.3 L Oxyhemoglobin 90.1 L Sodium Potassium Chloride Carbon Dioxide BUN Creatinine Glucose POC Glucose 120 H 121 H Uric Acid Calcium Phosphorus Magnesium AST ALT Total Creatine Kinase CK-MB (CK-2) Troponin T NT-Pro-B Natriuret Pep Total Protein Albumin Triglycerides HDL Cholesterol Urine WBC (Auto) Urine Creatinine Urine Total Protein Vancomycin Trough 05/12/19 05/12/19 05/12/19 04:45 04:45 11:14 WBC RBC Hgb 10.2 L Hct 32.4 L MCV MCH MCHC 31 L RDW 17.2 H Lymph % (Auto) [place] % (Auto) Eos % (Auto) Lymph # [place] # Eos # Seg Neutrophils % Seg Neuts % (Manual) Lymphocytes % (Manual) Monocytes % (Manual) Eosinophils % (Manual) Nucleated RBC % Seg Neutrophils # Lymphocytes # (Manual) Monocytes # (Manual) Eosinophils # (Manual) PT INR APTT POC ABG pH 7.284 L ABG pH POC ABG pCO2 67.8 H POC ABG pO2 ABG pO2 ABG HCO3 ABG O2 Saturation ABG Base Excess ABG Hemoglobin Oxyhemoglobin Sodium Potassium Chloride Carbon Dioxide BUN 63 H Creatinine 2.4 H Glucose 110 H POC Glucose Uric Acid Calcium Phosphorus Magnesium AST ALT Total Creatine Kinase CK-MB (CK-2) Troponin T NT-Pro-B Natriuret Pep Total Protein Albumin Triglycerides HDL Cholesterol Urine WBC (Auto) Urine Creatinine Urine Total Protein Vancomycin Trough 05/12/19 05/12/19 05/13/19 11:44 23:11 04:30 WBC RBC Hgb Hct MCV MCH MCHC RDW Lymph % (Auto) [place] % (Auto) Eos % (Auto) Lymph # [place] # Eos # Seg Neutrophils % Seg Neuts % (Manual) Lymphocytes % (Manual) Monocytes % (Manual) Eosinophils % (Manual) Nucleated RBC % Seg Neutrophils # Lymphocytes # (Manual) Monocytes # (Manual) Eosinophils # (Manual) PT INR APTT POC ABG pH ABG pH 7.288 L POC ABG pCO2 POC ABG pO2 ABG pO2 109.7 H ABG HCO3 30.9 H ABG O2 Saturation ABG Base Excess 3.2 H ABG Hemoglobin 9.6 L Oxyhemoglobin Sodium Potassium Chloride Carbon Dioxide BUN Creatinine Glucose POC Glucose 126 H 147 H Uric Acid Calcium Phosphorus Magnesium AST ALT Total Creatine Kinase CK-MB (CK-2) Troponin T NT-Pro-B Natriuret Pep Total Protein Albumin Triglycerides HDL Cholesterol Urine WBC (Auto) Urine Creatinine Urine Total Protein Vancomycin Trough 05/13/19 05/13/19 05/14/19 06:27 11:58 04:00 WBC RBC 3.16 L Hgb 9.3 L Hct 27.9 L MCV MCH MCHC RDW 17.1 H Lymph % (Auto) [place] % (Auto) Eos % (Auto) Lymph # [place] # Eos # Seg Neutrophils % Seg Neuts % (Manual) Lymphocytes % (Manual) Monocytes % (Manual) Eosinophils % (Manual) Nucleated RBC % Seg Neutrophils # Lymphocytes # (Manual) Monocytes # (Manual) Eosinophils # (Manual) PT INR APTT POC ABG pH ABG pH POC ABG pCO2 POC ABG pO2 ABG pO2 ABG HCO3 ABG O2 Saturation ABG Base Excess ABG Hemoglobin Oxyhemoglobin Sodium Potassium Chloride Carbon Dioxide BUN Creatinine Glucose POC Glucose 113 H 130 H Uric Acid Calcium Phosphorus Magnesium AST ALT Total Creatine Kinase CK-MB (CK-2) Troponin T NT-Pro-B Natriuret Pep Total Protein Albumin Triglycerides HDL Cholesterol Urine WBC (Auto) Urine Creatinine Urine Total Protein Vancomycin Trough 05/14/19 05/14/19 05/14/19 04:00 04:34 05:32 WBC RBC Hgb Hct MCV MCH MCHC RDW Lymph % (Auto) [place] % (Auto) Eos % (Auto) Lymph # [place] # Eos # Seg Neutrophils % Seg Neuts % (Manual) Lymphocytes % (Manual) Monocytes % (Manual) Eosinophils % (Manual) Nucleated RBC % Seg Neutrophils # Lymphocytes # (Manual) Monocytes # (Manual) Eosinophils # (Manual) PT INR APTT POC ABG pH 7.328 L ABG pH POC ABG pCO2 61.7 H POC ABG pO2 ABG pO2 ABG HCO3 ABG O2 Saturation ABG Base Excess ABG Hemoglobin Oxyhemoglobin Sodium 135 L D Potassium Chloride Carbon Dioxide BUN 57 H Creatinine 2.2 H Glucose 115 H POC Glucose 115 H Uric Acid Calcium 8.1 L Phosphorus Magnesium AST ALT Total Creatine Kinase CK-MB (CK-2) Troponin T NT-Pro-B Natriuret Pep Total Protein Albumin Triglycerides HDL Cholesterol Urine WBC (Auto) Urine Creatinine Urine Total Protein Vancomycin Trough 05/14/19 05/15/19 05/15/19 12:11 05:10 05:24 WBC RBC Hgb Hct MCV MCH MCHC RDW Lymph % (Auto) [place] % (Auto) Eos % (Auto) Lymph # [place] # Eos # Seg Neutrophils % Seg Neuts % (Manual) Lymphocytes % (Manual) Monocytes % (Manual) Eosinophils % (Manual) Nucleated RBC % Seg Neutrophils # Lymphocytes # (Manual) Monocytes # (Manual) Eosinophils # (Manual) PT INR APTT POC ABG pH ABG pH 7.342 L POC ABG pCO2 POC ABG pO2 ABG pO2 79.1 L ABG HCO3 28.2 H ABG O2 Saturation ABG Base Excess ABG Hemoglobin 7.0 L Oxyhemoglobin 94.4 L Sodium Potassium Chloride Carbon Dioxide BUN Creatinine Glucose POC Glucose 110 H 116 H Uric Acid Calcium Phosphorus Magnesium AST ALT Total Creatine Kinase CK-MB (CK-2) Troponin T NT-Pro-B Natriuret Pep Total Protein Albumin Triglycerides HDL Cholesterol Urine WBC (Auto) Urine Creatinine Urine Total Protein Vancomycin Trough 05/15/19 05/15/19 05/16/19 09:00 18:12 04:50 WBC RBC Hgb Hct MCV MCH MCHC RDW Lymph % (Auto) [place] % (Auto) Eos % (Auto) Lymph # [place] # Eos # Seg Neutrophils % Seg Neuts % (Manual) Lymphocytes % (Manual) Monocytes % (Manual) Eosinophils % (Manual) Nucleated RBC % Seg Neutrophils # Lymphocytes # (Manual) Monocytes # (Manual) Eosinophils # (Manual) PT INR APTT POC ABG pH ABG pH 7.250 L POC ABG pCO2 POC ABG pO2 ABG pO2 76.4 L ABG HCO3 ABG O2 Saturation 94.6 L ABG Base Excess -3.1 L ABG Hemoglobin 9.7 L Oxyhemoglobin 92.4 L Sodium Potassium Chloride Carbon Dioxide BUN Creatinine Glucose POC Glucose 110 H Uric Acid Calcium Phosphorus Magnesium AST ALT Total Creatine Kinase CK-MB (CK-2) Troponin T NT-Pro-B Natriuret Pep Total Protein Albumin Triglycerides HDL Cholesterol Urine WBC (Auto) Urine Creatinine Urine Total Protein Vancomycin Trough 20.5 H 05/16/19 05/16/19 05/17/19 05:50 05:50 04:20 WBC RBC 3.36 L 3.44 L Hgb 9.4 L 9.3 L Hct 29.1 L 29.7 L MCV MCH 27 L MCHC 31 L RDW 17.6 H 17.6 H Lymph % (Auto) [place] % (Auto) Eos % (Auto) Lymph # [place] # Eos # Seg Neutrophils % Seg Neuts % (Manual) 77.0 H Lymphocytes % (Manual) 5.0 L Monocytes % (Manual) Eosinophils % (Manual) 10.0 H Nucleated RBC % Seg Neutrophils # Lymphocytes # (Manual) 0.5 L Monocytes # (Manual) Eosinophils # (Manual) 0.9 H PT INR APTT POC ABG pH ABG pH POC ABG pCO2 POC ABG pO2 ABG pO2 ABG HCO3 ABG O2 Saturation ABG Base Excess ABG Hemoglobin Oxyhemoglobin Sodium Potassium Chloride Carbon Dioxide BUN 83 H Creatinine 4.4 H D Glucose 118 H POC Glucose Uric Acid Calcium Phosphorus Magnesium AST ALT Total Creatine Kinase CK-MB (CK-2) Troponin T NT-Pro-B Natriuret Pep Total Protein Albumin Triglycerides HDL Cholesterol Urine WBC (Auto) Urine Creatinine Urine Total Protein Vancomycin Trough 05/17/19 05/17/19 05/18/19 04:30 Unknown 01:50 WBC RBC 3.49 L Hgb 9.4 L Hct 30.0 L MCV MCH 27 L MCHC 31 L RDW 17.8 H Lymph % (Auto) 7.9 L [place] % (Auto) 15.4 H Eos % (Auto) 6.3 H Lymph # 0.7 L [place] # 1.4 H Eos # 0.6 H Seg Neutrophils % 70.2 H Seg Neuts % (Manual) Lymphocytes % (Manual) Monocytes % (Manual) Eosinophils % (Manual) Nucleated RBC % Seg Neutrophils # Lymphocytes # (Manual) Monocytes # (Manual) Eosinophils # (Manual) PT INR APTT POC ABG pH ABG pH 7.272 L POC ABG pCO2 POC ABG pO2 ABG pO2 75.7 L ABG HCO3 ABG O2 Saturation 93.8 L ABG Base Excess -3.0 L ABG Hemoglobin 7.8 L Oxyhemoglobin 91.6 L Sodium Potassium 5.2 H Chloride Carbon Dioxide BUN 96 H Creatinine 5.7 H Glucose 112 H POC Glucose Uric Acid Calcium Phosphorus Magnesium AST ALT Total Creatine Kinase CK-MB (CK-2) Troponin T NT-Pro-B Natriuret Pep Total Protein Albumin Triglycerides 173 H HDL Cholesterol Urine WBC (Auto) Urine Creatinine Urine Total Protein Vancomycin Trough 05/18/19 05/18/19 05/18/19 01:50 04:41 05:24 WBC RBC Hgb Hct MCV MCH MCHC RDW Lymph % (Auto) [place] % (Auto) Eos % (Auto) Lymph # [place] # Eos # Seg Neutrophils % Seg Neuts % (Manual) Lymphocytes % (Manual) Monocytes % (Manual) Eosinophils % (Manual) Nucleated RBC % Seg Neutrophils # Lymphocytes # (Manual) Monocytes # (Manual) Eosinophils # (Manual) PT INR APTT POC ABG pH 7.260 L ABG pH POC ABG pCO2 54.9 H POC ABG pO2 ABG pO2 ABG HCO3 ABG O2 Saturation ABG Base Excess ABG Hemoglobin Oxyhemoglobin Sodium Potassium 5.6 H Chloride Carbon Dioxide BUN 104 H Creatinine 6.6 H Glucose 107 H POC Glucose 106 H Uric Acid Calcium Phosphorus Magnesium AST ALT Total Creatine Kinase CK-MB (CK-2) Troponin T NT-Pro-B Natriuret Pep Total Protein Albumin Triglycerides HDL Cholesterol Urine WBC (Auto) Urine Creatinine Urine Total Protein Vancomycin Trough 05/18/19 05/18/19 05/19/19 11:34 23:26 04:06 WBC RBC 3.22 L Hgb 8.8 L Hct 27.3 L MCV MCH 27 L MCHC RDW 17.5 H Lymph % (Auto) [place] % (Auto) Eos % (Auto) Lymph # [place] # Eos # Seg Neutrophils % Seg Neuts % (Manual) 74.0 H Lymphocytes % (Manual) 4.0 L Monocytes % (Manual) 11.0 H Eosinophils % (Manual) 7.0 H Nucleated RBC % 1.0 H Seg Neutrophils # Lymphocytes # (Manual) 0.3 L Monocytes # (Manual) 0.9 H Eosinophils # (Manual) 0.6 H PT INR APTT POC ABG pH ABG pH POC ABG pCO2 POC ABG pO2 ABG pO2 ABG HCO3 ABG O2 Saturation ABG Base Excess ABG Hemoglobin Oxyhemoglobin Sodium Potassium Chloride Carbon Dioxide BUN Creatinine Glucose POC Glucose 152 H 112 H Uric Acid Calcium Phosphorus Magnesium AST ALT Total Creatine Kinase CK-MB (CK-2) Troponin T NT-Pro-B Natriuret Pep Total Protein Albumin Triglycerides HDL Cholesterol Urine WBC (Auto) Urine Creatinine Urine Total Protein Vancomycin Trough 05/19/19 05/19/19 05/20/19 04:06 06:00 04:00 WBC RBC 3.40 L Hgb 9.2 L Hct 28.6 L MCV MCH 27 L MCHC RDW 17.6 H Lymph % (Auto) [place] % (Auto) Eos % (Auto) Lymph # [place] # Eos # Seg Neutrophils % Seg Neuts % (Manual) Lymphocytes % (Manual) 11.0 L Monocytes % (Manual) Eosinophils % (Manual) 14.0 H Nucleated RBC % Seg Neutrophils # Lymphocytes # (Manual) 1.1 L Monocytes # (Manual) Eosinophils # (Manual) 1.4 H PT INR APTT POC ABG pH ABG pH 7.315 L POC ABG pCO2 POC ABG pO2 ABG pO2 ABG HCO3 ABG O2 Saturation ABG Base Excess ABG Hemoglobin 6.7 L Oxyhemoglobin 94.1 L Sodium Potassium 5.2 H Chloride Carbon Dioxide 21 L BUN 110 H Creatinine 7.2 H Glucose POC Glucose Uric Acid Calcium 8.3 L Phosphorus Magnesium AST ALT Total Creatine Kinase CK-MB (CK-2) Troponin T NT-Pro-B Natriuret Pep Total Protein Albumin Triglycerides HDL Cholesterol Urine WBC (Auto) Urine Creatinine Urine Total Protein Vancomycin Trough 05/20/19 05/20/19 05/20/19 04:00 05:48 12:00 WBC RBC Hgb Hct MCV MCH MCHC RDW Lymph % (Auto) [place] % (Auto) Eos % (Auto) Lymph # [place] # Eos # Seg Neutrophils % Seg Neuts % (Manual) Lymphocytes % (Manual) Monocytes % (Manual) Eosinophils % (Manual) Nucleated RBC % Seg Neutrophils # Lymphocytes # (Manual) Monocytes # (Manual) Eosinophils # (Manual) PT INR APTT POC ABG pH ABG pH 7.281 L POC ABG pCO2 POC ABG pO2 ABG pO2 78.7 L ABG HCO3 ABG O2 Saturation 94.5 L ABG Base Excess -3.0 L ABG Hemoglobin 9.9 L Oxyhemoglobin 92.5 L Sodium 136 L Potassium 5.7 H Chloride 96.3 L Carbon Dioxide BUN 125 H Creatinine 8.3 H Glucose 106 H POC Glucose Uric Acid Calcium Phosphorus Magnesium AST ALT Total Creatine Kinase CK-MB (CK-2) Troponin T NT-Pro-B Natriuret Pep Total Protein Albumin Triglycerides HDL Cholesterol Urine WBC (Auto) 26.0 H Urine Creatinine Urine Total Protein Vancomycin Trough 05/21/19 05/21/19 05/21/19 04:33 05:20 Unknown WBC RBC 3.38 L Hgb 9.1 L Hct 28.5 L MCV MCH 27 L MCHC RDW 17.4 H Lymph % (Auto) [place] % (Auto) Eos % (Auto) Lymph # [place] # Eos # Seg Neutrophils % Seg Neuts % (Manual) 71.0 H Lymphocytes % (Manual) 1.0 L Monocytes % (Manual) 11.0 H Eosinophils % (Manual) 6.0 H Nucleated RBC % Seg Neutrophils # Lymphocytes # (Manual) 0.1 L Monocytes # (Manual) 1.0 H Eosinophils # (Manual) 0.6 H PT INR APTT POC ABG pH 7.315 L ABG pH POC ABG pCO2 57.8 H POC ABG pO2 68 L ABG pO2 ABG HCO3 ABG O2 Saturation ABG Base Excess ABG Hemoglobin Oxyhemoglobin Sodium Potassium Chloride 96.3 L Carbon Dioxide BUN 102 H Creatinine 7.0 H Glucose 103 H POC Glucose Uric Acid Calcium Phosphorus Magnesium AST ALT Total Creatine Kinase CK-MB (CK-2) Troponin T NT-Pro-B Natriuret Pep Total Protein Albumin Triglycerides HDL Cholesterol Urine WBC (Auto) Urine Creatinine Urine Total Protein Vancomycin Trough 05/22/19 05/22/19 05/22/19 03:54 06:25 06:25 WBC RBC 3.22 L Hgb 8.6 L Hct 27.0 L MCV MCH 27 L MCHC RDW 17.5 H Lymph % (Auto) [place] % (Auto) 16.2 H Eos % (Auto) 10.8 H Lymph # [place] # 1.3 H Eos # 0.9 H Seg Neutrophils % Seg Neuts % (Manual) Lymphocytes % (Manual) 10.0 L Monocytes % (Manual) 13.0 H Eosinophils % (Manual) 8.0 H Nucleated RBC % Seg Neutrophils # Lymphocytes # (Manual) 0.9 L Monocytes # (Manual) 1.1 H Eosinophils # (Manual) 0.7 H PT INR APTT POC ABG pH 7.313 L ABG pH POC ABG pCO2 55.0 H POC ABG pO2 ABG pO2 ABG HCO3 ABG O2 Saturation ABG Base Excess ABG Hemoglobin Oxyhemoglobin Sodium 135 L Potassium Chloride 94.3 L Carbon Dioxide BUN 117 H Creatinine 7.8 H Glucose POC Glucose Uric Acid Calcium 8.2 L Phosphorus Magnesium AST ALT Total Creatine Kinase CK-MB (CK-2) Troponin T NT-Pro-B Natriuret Pep Total Protein Albumin Triglycerides HDL Cholesterol Urine WBC (Auto) Urine Creatinine Urine Total Protein Vancomycin Trough 05/23/19 05/24/19 05/24/19 05:21 05:00 05:00 WBC RBC 3.18 L Hgb 8.5 L Hct 26.7 L MCV MCH 27 L MCHC RDW 17.9 H Lymph % (Auto) [place] % (Auto) Eos % (Auto) Lymph # [place] # Eos # Seg Neutrophils % Seg Neuts % (Manual) Lymphocytes % (Manual) Monocytes % (Manual) Eosinophils % (Manual) Nucleated RBC % Seg Neutrophils # Lymphocytes # (Manual) Monocytes # (Manual) Eosinophils # (Manual) PT INR APTT POC ABG pH ABG pH POC ABG pCO2 49.7 H POC ABG pO2 73 L ABG pO2 ABG HCO3 ABG O2 Saturation ABG Base Excess ABG Hemoglobin Oxyhemoglobin Sodium Potassium Chloride 95.7 L Carbon Dioxide BUN 97 H Creatinine 6.5 H Glucose POC Glucose Uric Acid Calcium 8.0 L Phosphorus Magnesium AST ALT Total Creatine Kinase CK-MB (CK-2) Troponin T NT-Pro-B Natriuret Pep Total Protein Albumin Triglycerides HDL Cholesterol Urine WBC (Auto) Urine Creatinine Urine Total Protein Vancomycin Trough 05/24/19 05/25/19 05/25/19 06:17 04:22 15:45 WBC RBC 2.98 L Hgb 8.1 L Hct 24.9 L MCV MCH 27 L MCHC RDW 17.8 H Lymph % (Auto) [place] % (Auto) Eos % (Auto) Lymph # [place] # Eos # Seg Neutrophils % Seg Neuts % (Manual) Lymphocytes % (Manual) Monocytes % (Manual) Eosinophils % (Manual) Nucleated RBC % Seg Neutrophils # Lymphocytes # (Manual) Monocytes # (Manual) Eosinophils # (Manual) PT INR APTT POC ABG pH 7.330 L 7.313 L ABG pH POC ABG pCO2 52.5 H 51.1 H POC ABG pO2 77 L ABG pO2 ABG HCO3 ABG O2 Saturation ABG Base Excess ABG Hemoglobin Oxyhemoglobin Sodium Potassium Chloride Carbon Dioxide BUN Creatinine Glucose POC Glucose Uric Acid Calcium Phosphorus Magnesium AST ALT Total Creatine Kinase CK-MB (CK-2) Troponin T NT-Pro-B Natriuret Pep Total Protein Albumin Triglycerides HDL Cholesterol Urine WBC (Auto) Urine Creatinine Urine Total Protein Vancomycin Trough 05/25/19 05/26/19 05/26/19 15:45 04:13 05:00 WBC RBC 3.10 L Hgb 8.4 L Hct 26.0 L MCV MCH 27 L MCHC RDW 17.4 H Lymph % (Auto) [place] % (Auto) Eos % (Auto) Lymph # [place] # Eos # Seg Neutrophils % Seg Neuts % (Manual) Lymphocytes % (Manual) Monocytes % (Manual) Eosinophils % (Manual) Nucleated RBC % Seg Neutrophils # Lymphocytes # (Manual) Monocytes # (Manual) Eosinophils # (Manual) PT INR APTT POC ABG pH 7.295 L ABG pH POC ABG pCO2 56.5 H POC ABG pO2 63 L ABG pO2 ABG HCO3 ABG O2 Saturation ABG Base Excess ABG Hemoglobin Oxyhemoglobin Sodium 136 L Potassium Chloride 96.8 L Carbon Dioxide BUN 83 H Creatinine 5.9 H Glucose POC Glucose Uric Acid Calcium 7.6 L Phosphorus Magnesium AST ALT Total Creatine Kinase CK-MB (CK-2) Troponin T NT-Pro-B Natriuret Pep Total Protein Albumin Triglycerides HDL Cholesterol Urine WBC (Auto) Urine Creatinine Urine Total Protein Vancomycin Trough 05/26/19 05/27/19 05/28/19 05:00 04:48 04:47 WBC RBC Hgb Hct MCV MCH MCHC RDW Lymph % (Auto) [place] % (Auto) Eos % (Auto) Lymph # [place] # Eos # Seg Neutrophils % Seg Neuts % (Manual) Lymphocytes % (Manual) Monocytes % (Manual) Eosinophils % (Manual) Nucleated RBC % Seg Neutrophils # Lymphocytes # (Manual) Monocytes # (Manual) Eosinophils # (Manual) PT INR APTT POC ABG pH 7.323 L ABG pH 7.284 L POC ABG pCO2 56.2 H POC ABG pO2 ABG pO2 71.6 L ABG HCO3 ABG O2 Saturation 92.0 L ABG Base Excess ABG Hemoglobin 7.7 L Oxyhemoglobin 89.9 L Sodium 136 L Potassium Chloride 95.3 L Carbon Dioxide BUN 96 H Creatinine 6.5 H Glucose 108 H POC Glucose Uric Acid Calcium 7.6 L Phosphorus Magnesium AST ALT Total Creatine Kinase CK-MB (CK-2) Troponin T NT-Pro-B Natriuret Pep Total Protein Albumin Triglycerides HDL Cholesterol Urine WBC (Auto) Urine Creatinine Urine Total Protein Vancomycin Trough
--- NOTE | 2019-05-28 12:46 | Progress Note ---
Assessment and Plan Cultures: Blood cultures 05/11/19: no growth thus far Blood cultures 05/18/19 pending Sputum culture 05/11/19: no growth thus far urine culture: no growth resp culture: no growth Blood culture 05/18/2019: no growth thus far urine culture 05/20/2019: normal skin shandra, Jarad albicans sputum culture 05/20/2019: Jarad albicans Blood culture 05/23/2019: no growth A/P: 34-year-old male with obesity admitted with: #Fever, SIRS with shock: shock resolved, intermittently febrile. Initially felt to be ?aspiration related. Apparently was using CPAP. Persistent febrile again, likely ?UTI. Repeat UA showed pyuria, had indwelling Han which was removed again 05/20. Urine culture with normal skin shandra. Fevers now recurred since 05/17. Should eval for worsening pneumonia, sinusitis, but unable to fit in CT scan. candiduria also generally does not require treatment, but in this patient with recurrent fever, reasonable to consider a trial of fluconazole renally adjusted. Likely drug fever, given eosinophilia. #Diffuse rash with eosinophilia: abx classes were changed on 05/25/2019 and then all abx stopped on 05/27/2019. #Acute hypoxic hypercapneic respiratory failure, possibly obesity hypoventilation syndrome: on the vent. Pulmonary managing. jarad in sputum does not need treatment, it almost never causes a pneumonia and is reflective of colonization, overgrowth in the setting of abx use #Morbid obesity #CARLA: creatinine elevated. dose abx accordingly. Now on HD via vascath #Elevated LFTs: RUQ US showed fatty liver, small GB sludge. Improving. #Acute encephalopathy with ?seizure activity: persistent fevers. Has been receiving empiric meningitis coverage #UTI: s/p han removal on 05/20 Recs: - very likely drug fever. Doing well off antibiotics - Ok for steroids from ID standpoint for eosinophilia and drug rash Burke Wilks MD, FACP [facility] ([facility] C: [phone] O: [phone] F: [phone] Subjective Date of service: 05/28/19 Principal diagnosis: HF; acute hypoxemic resp failure, SIRS, CARLA Interval history: Fever subsiding. Rash still present. Remains intubated, on the vent. Objective - Exam Narrative Exam: Physical Exam: Constitutional: sedated, intubated. Morbid obesity Head, Ears, Nose: Normocephalic, atraumatic. External ears, nose normal Eyes: Conjunctivae/corneas clear. No icterus. No ptosis. Neck: intubated Oral: intubated Cardiovascular: S1, S2 normal. Respiratory: Good air entry, clear to auscultation bilaterally GI: Soft, non-tender; bowel sounds normal. No peritoneal signs Musculoskeletal: No pedal edema, no cyanosis. Skin: diffuse erythematous rash + Hem/Lymphatic: No palpable cervical or supraclavicular nodes. No lymphangitis Psych: no agitation Neurological: sedated, intubated, on vent - Constitutional Vitals: Vital Signs Temp Pulse Resp BP Pulse Ox 99.1 F 85 25 H 119/37 99 05/28/19 03:31 05/28/19 12:00 05/28/19 11:00 05/28/19 12:00 05/28/19 12:00 Temperature -Last 24 Hours Temperature 99.1 F Temperature 99.6 F Temperature 100.3 F Temperature 99.1 F Temperature 99.5 F Temperature 99.5 F - Labs CBC & Chem 7: 05/26/19 05:00 05/26/19 05:00 Labs: Abnormal lab results 05/28/19 Range/Units 04:47 POC ABG pH 7.323 L (7.35-7.45) POC ABG pCO2 56.2 H (35-45)
--- NOTE | 2019-05-28 13:00 | Anesthesia Consultation ---
Anesthesia Consult and Med Hx Date of service: 05/28/19 - Airway ROM Head & Neck: Inadequate Mental/Hyoid Distance: Inadequate Mallampati Class: Class III Intubation Access Assessment: Possibly Difficult - Pre-Operative Health Status ASA Pre-Surgery Classification: ASA3 Proposed Anesthetic Plan: General - Pulmonary Hx Respiratory Symptoms: Yes (Patient on vent; peep of 16 with FIO2 of 40%) Hx Sleep Apnea: Yes (Patient was non compliant) - Cardiovascular System Hx Hypertension: Yes Hx Heart Attack/AMI: Yes (TTE shows mild cardiomegaly; EF 55-60%; probable CHF) Hx Pacemaker: No Hx Internal Defibrillator: No - Endocrine Hx End Stage Renal Disease: Yes - Other Systems Hx Obesity: Yes (BMI 70) - Additional Comments Anesthesia Medical History Comments: Patient currently intubated for 3 weeks, suspected anoxic injury from cardiac arrest.
[2019-05-28 13:15] LABS: Calcium 7.5 mg/dL (8.4-10.2)
[2019-05-28] MEDS ORDERED: ALTEPLASE 2 MG INJ ONE (20:35)
[2019-05-28] MEDS: ALTEPLASE 2 MG INJ IV PRN (21:15)
[2019-05-28] MEDS: ACETAMINOPHEN 325 MG TAB PO PRN (23:05)
[2019-05-29] MEDS: fentaNYL DRIP Premix 2,000 MCG/100 ML BAG IV SCH ×2 (08:44→19:02)
[2019-05-29] MEDS: levETIRAcetam 500 MG/5 ML ORAL LIQD PO SCH ×2 (09:07→22:18)
[2019-05-29] MEDS: FAMOTIDINE 20 MG TAB PO SCH (09:07)
[2019-05-29] MEDS: ENOXAPARIN 30 MG/0.3 ML INJ SUB-Q SCH (09:08)
[2019-05-29] MEDS ORDERED: IBUPROFEN ORAL LIQD 100 MG/5 ML ORAL.LIQD PO ONE (09:36)
--- NOTE | 2019-05-29 11:51 | Progress Note ---
Assessment and Plan 34 y/o male with acute hypoxic, hypercapnic respiratory failure currently ventilated and sedated, now with persistent fevers and seizure and on HD 05/29/19: if HD is cut short, may hold off on dropping PEEP any further. Still at 16 right now. RT did not do any further weaning. Will assess post HD. If sats are still in the high 90's, will drop to 14. Persistent fevers, still no certain etiology. Cut be neuro related but unable to get into scanner, wont fit on table. Guarded prognosis. Patient cannot be trached at this time, 1 because of persistent fevers and 2 continued high levels of PEEP. 1. ID: Patient unable to fit in scanner so CT of head sinus, chest will not happen. ID has placed back on renally adjusted Vanc. he has grown out jarad from urine and a tracheal aspirate 2. Pulm: FIO2 now @ 40%. ABG was good. Will wean after HD today. Can start to come down on PEEP. Will drop to 16 starting tomorrow. 3. Renal: HD per renal, will need permacath per vascular notes if patient can be afebrile. 4. Day number of 23 of intubation. 5. Trying to avoid trach as much as possible. He is on his fourth week of intubation. However still requiring high levels of PEEP. At this point, once weaned to normal PEEP levels, hoping that we can extubate. CCT 31 minutes. Subjective Date of service: 05/29/19 Principal diagnosis: HF; acute hypoxemic resp failure, SIRS, CARLA Interval history: No acute events. Getting HD right now. no family present. had temp of 103 so renal has cut back on the HD. BP has been stable Objective Vital Signs - 12hr 05/29/19 05/29/19 05/29/19 00:00 00:14 00:30 Temperature Pulse Rate 94 H 97 H 101 H Respiratory 15 27 H Rate Blood Pressure 135/44 135/46 130/43 O2 Sat by Pulse 96 97 91 Oximetry O2 Sat by Pulse Oximetry [ Bilateral Bases ] 05/29/19 05/29/19 05/29/19 01:00 01:30 02:00 Temperature Pulse Rate 95 H 95 H 98 H Respiratory 25 H 22 22 Rate Blood Pressure 132/43 130/43 133/45 O2 Sat by Pulse 94 97 96 Oximetry O2 Sat by Pulse Oximetry [ Bilateral Bases ] 05/29/19 05/29/19 05/29/19 03:00 03:25 03:53 Temperature 102.5 F H Pulse Rate 92 H 96 H Respiratory 36 H Rate Blood Pressure 132/43 132/43 O2 Sat by Pulse 97 96 Oximetry O2 Sat by Pulse Oximetry [ Bilateral Bases ] 05/29/19 05/29/19 05/29/19 04:00 05:00 05:22 Temperature Pulse Rate 104 H 105 H 111 H Respiratory 26 H 27 H Rate Blood Pressure 151/50 151/50 138/56 O2 Sat by Pulse 95 95 Oximetry O2 Sat by Pulse Oximetry [ Bilateral Bases ] 05/29/19 05/29/19 05/29/19 05:30 06:00 06:30 Temperature Pulse Rate 105 H 100 H 95 H Respiratory 25 H 26 H 24 Rate Blood Pressure 138/56 134/47 126/50 O2 Sat by Pulse 95 96 97 Oximetry O2 Sat by Pulse Oximetry [ Bilateral Bases ] 05/29/19 05/29/19 05/29/19 07:00 07:30 08:00 Temperature 103 F H Pulse Rate 103 H 102 H 107 H Respiratory 26 H 26 H 28 H Rate Blood Pressure 140/47 137/45 132/45 O2 Sat by Pulse 96 96 90 Oximetry O2 Sat by Pulse Oximetry [ Bilateral Bases ] 05/29/19 05/29/19 05/29/19 08:30 09:00 09:30 Temperature Pulse Rate 111 H 107 H 118 H Respiratory 32 H 30 H 19 Rate Blood Pressure 122/67 122/67 145/44 O2 Sat by Pulse 93 94 95 Oximetry O2 Sat by Pulse Oximetry [ Bilateral Bases ] 05/29/19 05/29/19 05/29/19 10:01 10:20 10:30 Temperature 103.2 F H Pulse Rate 102 H 109 H 106 H Respiratory 27 H 31 H 29 H Rate Blood Pressure 134/49 134/49 149/47 O2 Sat by Pulse 96 95 Oximetry O2 Sat by Pulse 95 Oximetry [ Bilateral Bases ] 05/29/19 05/29/19 05/29/19 10:45 11:00 11:15 Temperature Pulse Rate 98 H 97 H 95 H Respiratory 26 H Rate Blood Pressure 139/43 138/44 137/43 O2 Sat by Pulse 96 Oximetry O2 Sat by Pulse Oximetry [ Bilateral Bases ] 05/29/19 05/29/19 11:30 11:45 Temperature Pulse Rate 92 H 91 H Respiratory Rate Blood Pressure 136/45 119/49 O2 Sat by Pulse Oximetry O2 Sat by Pulse Oximetry [ Bilateral Bases ] Constitutional: other (morbidly obese male, sedated on vent, orally intubated) Eyes: non-icteric ENT: oropharynx moist Neck: other (extremely large in circumference) Effort: normal Ascultation: Bilateral: diminished breath sounds (secondary to body habitus) Cardiovascular: regular rate and rhythm (no mrg) Gastrointestinal: normoactive bowel sounds, non-tender, other (obese) Integumentary: other (L hand is wrapped) Extremities: no cyanosis, pink and warm, other (1+ generalized edema) Neurologic: unable to assess Psychiatric: other (unable to assess) CBC and BMP: 05/26/19 05:00 05/28/19 12:30 ABG, PT/INR, D-dimer: ABG POC ABG pH 7.381 (7.35-7.45) 05/29/19 05:26 ABG pH 7.284 pH Units (7.350-7.450) L 05/27/19 04:48 POC ABG pCO2 44.4 (35-45) 05/29/19 05:26 ABG pCO2 53.7 mm Hg 05/27/19 04:48 POC ABG pO2 87 (80-105) 05/29/19 05:26 ABG pO2 71.6 mm Hg (80.0-90.0) L 05/27/19 04:48 POC ABG HCO3 26.3 (22-26 mml/L) 05/29/19 05:26 POC ABG Total CO2 28 (23-27mmol/L) 05/29/19 05:26 POC ABG O2 Sat 96 05/29/19 05:26 ABG O2 Saturation 92.0 % (95.0-99.0) L 05/27/19 04:48 PT/INR, D-dimer PT 15.4 Sec. (12.2-14.9) H 05/01/19 Unknown INR 1.23 (0.87-1.13) H 05/01/19 Unknown Abnormal lab findings: Abnormal Labs 05/01/19 05/01/19 05/01/19 17:50 19:26 22:36 WBC RBC Hgb Hct MCV MCH MCHC RDW Lymph % (Auto) Camp % (Auto) Eos % (Auto) Lymph # Camp # Eos # Seg Neutrophils % Seg Neuts % (Manual) Lymphocytes % (Manual) Monocytes % (Manual) Eosinophils % (Manual) Nucleated RBC % Seg Neutrophils # Lymphocytes # (Manual) Monocytes # (Manual) Eosinophils # (Manual) PT INR APTT POC ABG pH 7.272 L 7.331 L ABG pH POC ABG pCO2 52.8 H POC ABG pO2 ABG pO2 ABG HCO3 ABG O2 Saturation ABG Base Excess ABG Hemoglobin Oxyhemoglobin Sodium 136 L Potassium 6.5 H* Chloride 97.2 L Carbon Dioxide BUN 60 H Creatinine Glucose 113 H POC Glucose Uric Acid Calcium Phosphorus Magnesium 2.40 H AST 139 H ALT 154 H Total Creatine Kinase CK-MB (CK-2) Troponin T NT-Pro-B Natriuret Pep Total Protein Albumin 3.8 L Triglycerides HDL Cholesterol Urine WBC (Auto) Urine Creatinine Urine Total Protein Vancomycin Trough 05/01/19 05/01/19 05/01/19 Unknown Unknown Unknown WBC 16.1 H RBC Hgb Hct MCV MCH MCHC RDW 17.2 H Lymph % (Auto) Camp % (Auto) 9.6 H Eos % (Auto) Lymph # Camp # 1.5 H Eos # Seg Neutrophils % 73.0 H Seg Neuts % (Manual) Lymphocytes % (Manual) Monocytes % (Manual) Eosinophils % (Manual) Nucleated RBC % Seg Neutrophils # 11.7 H Lymphocytes # (Manual) Monocytes # (Manual) Eosinophils # (Manual) PT 15.4 H INR 1.23 H APTT 22.7 L POC ABG pH ABG pH POC ABG pCO2 POC ABG pO2 ABG pO2 ABG HCO3 ABG O2 Saturation ABG Base Excess ABG Hemoglobin Oxyhemoglobin Sodium Potassium Chloride Carbon Dioxide BUN Creatinine Glucose POC Glucose Uric Acid Calcium Phosphorus Magnesium AST ALT Total Creatine Kinase CK-MB (CK-2) Troponin T NT-Pro-B Natriuret Pep 6831 H Total Protein Albumin Triglycerides HDL Cholesterol Urine WBC (Auto) Urine Creatinine Urine Total Protein Vancomycin Trough 05/01/19 05/02/19 05/02/19 Unknown 00:06 00:06 WBC RBC Hgb Hct MCV MCH MCHC RDW Lymph % (Auto) Camp % (Auto) Eos % (Auto) Lymph # Camp # Eos # Seg Neutrophils % Seg Neuts % (Manual) Lymphocytes % (Manual) Monocytes % (Manual) Eosinophils % (Manual) Nucleated RBC % Seg Neutrophils # Lymphocytes # (Manual) Monocytes # (Manual) Eosinophils # (Manual) PT INR APTT POC ABG pH ABG pH POC ABG pCO2 POC ABG pO2 ABG pO2 ABG HCO3 ABG O2 Saturation ABG Base Excess ABG Hemoglobin Oxyhemoglobin Sodium Potassium Chloride Carbon Dioxide BUN Creatinine Glucose POC Glucose Uric Acid Calcium Phosphorus 4.90 H Magnesium AST ALT Total Creatine Kinase 226 H CK-MB (CK-2) 5.7 H Troponin T 0.044 H NT-Pro-B Natriuret Pep Total Protein Albumin Triglycerides 182 H HDL Cholesterol 18 L Urine WBC (Auto) Urine Creatinine Urine Total Protein Vancomycin Trough 05/02/19 05/02/19 05/02/19 02:08 04:40 04:41 WBC 17.6 H RBC Hgb Hct MCV MCH 27 L MCHC RDW 17.4 H Lymph % (Auto) 10.2 L Camp % (Auto) 11.0 H Eos % (Auto) Lymph # Camp # 1.9 H Eos # Seg Neutrophils % 78.0 H Seg Neuts % (Manual) Lymphocytes % (Manual) Monocytes % (Manual) Eosinophils % (Manual) Nucleated RBC % Seg Neutrophils # 13.8 H Lymphocytes # (Manual) Monocytes # (Manual) Eosinophils # (Manual) PT INR APTT POC ABG pH ABG pH POC ABG pCO2 46.8 H POC ABG pO2 63 L ABG pO2 ABG HCO3 ABG O2 Saturation ABG Base Excess ABG Hemoglobin Oxyhemoglobin Sodium Potassium Chloride 96.3 L Carbon Dioxide BUN 63 H Creatinine 1.7 H Glucose POC Glucose Uric Acid Calcium Phosphorus Magnesium AST ALT Total Creatine Kinase CK-MB (CK-2) Troponin T NT-Pro-B Natriuret Pep Total Protein Albumin Triglycerides HDL Cholesterol Urine WBC (Auto) Urine Creatinine Urine Total Protein Vancomycin Trough 05/02/19 05/02/19 05/02/19 04:41 04:41 16:05 WBC RBC Hgb Hct MCV MCH MCHC RDW Lymph % (Auto) Camp % (Auto) Eos % (Auto) Lymph # Camp # Eos # Seg Neutrophils % Seg Neuts % (Manual) Lymphocytes % (Manual) Monocytes % (Manual) Eosinophils % (Manual) Nucleated RBC % Seg Neutrophils # Lymphocytes # (Manual) Monocytes # (Manual) Eosinophils # (Manual) PT INR APTT POC ABG pH ABG pH POC ABG pCO2 POC ABG pO2 ABG pO2 66.6 L ABG HCO3 31.9 H ABG O2 Saturation 92.5 L ABG Base Excess 5.8 H ABG Hemoglobin 13.3 L Oxyhemoglobin 90.6 L Sodium Potassium Chloride 97.2 L Carbon Dioxide BUN 61 H Creatinine 1.8 H Glucose POC Glucose Uric Acid Calcium Phosphorus Magnesium AST ALT Total Creatine Kinase CK-MB (CK-2) 5.2 H Troponin T 0.067 H D NT-Pro-B Natriuret Pep Total Protein Albumin Triglycerides HDL Cholesterol Urine WBC (Auto) Urine Creatinine Urine Total Protein Vancomycin Trough 05/02/19 05/03/19 05/03/19 20:39 04:35 05:05 WBC 11.8 H RBC Hgb Hct MCV MCH 27 L MCHC 31 L RDW 17.2 H Lymph % (Auto) Camp % (Auto) Eos % (Auto) Lymph # Camp # Eos # Seg Neutrophils % Seg Neuts % (Manual) Lymphocytes % (Manual) Monocytes % (Manual) Eosinophils % (Manual) Nucleated RBC % Seg Neutrophils # Lymphocytes # (Manual) Monocytes # (Manual) Eosinophils # (Manual) PT INR APTT POC ABG pH ABG pH POC ABG pCO2 53.6 H 54.0 H POC ABG pO2 55 L 63 L ABG pO2 ABG HCO3 ABG O2 Saturation ABG Base Excess ABG Hemoglobin Oxyhemoglobin Sodium Potassium Chloride Carbon Dioxide BUN Creatinine Glucose POC Glucose Uric Acid Calcium Phosphorus Magnesium AST ALT Total Creatine Kinase CK-MB (CK-2) Troponin T NT-Pro-B Natriuret Pep Total Protein Albumin Triglycerides HDL Cholesterol Urine WBC (Auto) Urine Creatinine Urine Total Protein Vancomycin Trough 05/03/19 05/03/19 05/03/19 05:05 10:55 16:48 WBC RBC Hgb Hct MCV MCH MCHC RDW Lymph % (Auto) Camp % (Auto) Eos % (Auto) Lymph # Camp # Eos # Seg Neutrophils % Seg Neuts % (Manual) Lymphocytes % (Manual) Monocytes % (Manual) Eosinophils % (Manual) Nucleated RBC % Seg Neutrophils # Lymphocytes # (Manual) Monocytes # (Manual) Eosinophils # (Manual) PT INR APTT POC ABG pH 7.604 H ABG pH POC ABG pCO2 POC ABG pO2 58 L ABG pO2 ABG HCO3 ABG O2 Saturation ABG Base Excess ABG Hemoglobin Oxyhemoglobin Sodium Potassium Chloride Carbon Dioxide BUN 52 H Creatinine 1.9 H Glucose 103 H POC Glucose Uric Acid Calcium Phosphorus Magnesium AST ALT Total Creatine Kinase CK-MB (CK-2) Troponin T NT-Pro-B Natriuret Pep Total Protein Albumin Triglycerides HDL Cholesterol Urine WBC (Auto) 33.0 H Urine Creatinine Urine Total Protein Vancomycin Trough 05/04/19 05/04/19 05/04/19 04:49 06:50 06:50 WBC 16.0 H RBC Hgb Hct MCV MCH 27 L MCHC 31 L RDW 17.8 H Lymph % (Auto) Camp % (Auto) Eos % (Auto) Lymph # Camp # Eos # Seg Neutrophils % Seg Neuts % (Manual) Lymphocytes % (Manual) Monocytes % (Manual) Eosinophils % (Manual) Nucleated RBC % Seg Neutrophils # Lymphocytes # (Manual) Monocytes # (Manual) Eosinophils # (Manual) PT INR APTT POC ABG pH 7.273 L ABG pH POC ABG pCO2 POC ABG pO2 ABG pO2 ABG HCO3 ABG O2 Saturation ABG Base Excess ABG Hemoglobin Oxyhemoglobin Sodium 148 H Potassium 5.5 H Chloride Carbon Dioxide BUN 53 H Creatinine 3.3 H D Glucose 106 H POC Glucose Uric Acid Calcium 8.3 L Phosphorus Magnesium AST ALT Total Creatine Kinase CK-MB (CK-2) Troponin T NT-Pro-B Natriuret Pep Total Protein Albumin Triglycerides HDL Cholesterol Urine WBC (Auto) Urine Creatinine Urine Total Protein Vancomycin Trough 05/05/19 05/05/19 05/05/19 00:05 04:30 05:00 WBC RBC Hgb Hct MCV MCH MCHC RDW Lymph % (Auto) Camp % (Auto) Eos % (Auto) Lymph # Camp # Eos # Seg Neutrophils % Seg Neuts % (Manual) Lymphocytes % (Manual) Monocytes % (Manual) Eosinophils % (Manual) Nucleated RBC % Seg Neutrophils # Lymphocytes # (Manual) Monocytes # (Manual) Eosinophils # (Manual) PT INR APTT POC ABG pH 7.225 L ABG pH POC ABG pCO2 > 70 H POC ABG pO2 ABG pO2 ABG HCO3 ABG O2 Saturation ABG Base Excess ABG Hemoglobin Oxyhemoglobin Sodium 151 H Potassium 5.1 H Chloride Carbon Dioxide BUN 64 H Creatinine 3.5 H Glucose 117 H POC Glucose 141 H Uric Acid Calcium 7.5 L Phosphorus Magnesium AST 93 H ALT 65 H Total Creatine Kinase CK-MB (CK-2) Troponin T NT-Pro-B Natriuret Pep Total Protein Albumin 2.9 L Triglycerides HDL Cholesterol Urine WBC (Auto) Urine Creatinine Urine Total Protein Vancomycin Trough 05/05/19 05/05/19 05/05/19 05:00 12:02 17:46 WBC 12.0 H RBC Hgb 11.3 L Hct MCV MCH 27 L MCHC 30 L RDW 18.4 H Lymph % (Auto) 7.9 L Camp % (Auto) 10.2 H Eos % (Auto) Lymph # 1.0 L Camp # 1.2 H Eos # Seg Neutrophils % 80.8 H Seg Neuts % (Manual) Lymphocytes % (Manual) Monocytes % (Manual) Eosinophils % (Manual) Nucleated RBC % Seg Neutrophils # 9.7 H Lymphocytes # (Manual) Monocytes # (Manual) Eosinophils # (Manual) PT INR APTT POC ABG pH ABG pH POC ABG pCO2 POC ABG pO2 ABG pO2 ABG HCO3 ABG O2 Saturation ABG Base Excess ABG Hemoglobin Oxyhemoglobin Sodium Potassium Chloride Carbon Dioxide BUN Creatinine Glucose POC Glucose 125 H 112 H Uric Acid Calcium Phosphorus Magnesium AST ALT Total Creatine Kinase CK-MB (CK-2) Troponin T NT-Pro-B Natriuret Pep Total Protein Albumin Triglycerides HDL Cholesterol Urine WBC (Auto) Urine Creatinine Urine Total Protein Vancomycin Trough 05/05/19 05/06/19 05/06/19 23:42 03:58 04:45 WBC 11.4 H RBC Hgb 10.7 L Hct 34.2 L MCV MCH 27 L MCHC 31 L RDW 16.9 H Lymph % (Auto) Camp % (Auto) Eos % (Auto) Lymph # Camp # Eos # Seg Neutrophils % Seg Neuts % (Manual) Lymphocytes % (Manual) Monocytes % (Manual) Eosinophils % (Manual) Nucleated RBC % Seg Neutrophils # Lymphocytes # (Manual) Monocytes # (Manual) Eosinophils # (Manual) PT INR APTT POC ABG pH ABG pH POC ABG pCO2 62.4 H POC ABG pO2 111 H ABG pO2 ABG HCO3 ABG O2 Saturation ABG Base Excess ABG Hemoglobin Oxyhemoglobin Sodium Potassium Chloride Carbon Dioxide BUN Creatinine Glucose POC Glucose 128 H Uric Acid Calcium Phosphorus Magnesium AST ALT Total Creatine Kinase CK-MB (CK-2) Troponin T NT-Pro-B Natriuret Pep Total Protein Albumin Triglycerides HDL Cholesterol Urine WBC (Auto) Urine Creatinine Urine Total Protein Vancomycin Trough 05/06/19 05/06/19 05/06/19 04:45 05:33 12:30 WBC RBC Hgb Hct MCV MCH MCHC RDW Lymph % (Auto) Camp % (Auto) Eos % (Auto) Lymph # Camp # Eos # Seg Neutrophils % Seg Neuts % (Manual) Lymphocytes % (Manual) Monocytes % (Manual) Eosinophils % (Manual) Nucleated RBC % Seg Neutrophils # Lymphocytes # (Manual) Monocytes # (Manual) Eosinophils # (Manual) PT INR APTT POC ABG pH ABG pH POC ABG pCO2 POC ABG pO2 ABG pO2 ABG HCO3 ABG O2 Saturation ABG Base Excess ABG Hemoglobin Oxyhemoglobin Sodium 149 H Potassium Chloride Carbon Dioxide 31 H BUN 67 H Creatinine 3.2 H Glucose 125 H POC Glucose 117 H 116 H Uric Acid Calcium 7.5 L Phosphorus Magnesium AST ALT Total Creatine Kinase CK-MB (CK-2) Troponin T NT-Pro-B Natriuret Pep Total Protein Albumin Triglycerides HDL Cholesterol Urine WBC (Auto) Urine Creatinine Urine Total Protein Vancomycin Trough 05/06/19 05/06/19 05/07/19 18:34 23:16 05:22 WBC RBC Hgb Hct MCV MCH MCHC RDW Lymph % (Auto) Camp % (Auto) Eos % (Auto) Lymph # Camp # Eos # Seg Neutrophils % Seg Neuts % (Manual) Lymphocytes % (Manual) Monocytes % (Manual) Eosinophils % (Manual) Nucleated RBC % Seg Neutrophils # Lymphocytes # (Manual) Monocytes # (Manual) Eosinophils # (Manual) PT INR APTT POC ABG pH ABG pH POC ABG pCO2 POC ABG pO2 ABG pO2 ABG HCO3 ABG O2 Saturation ABG Base Excess ABG Hemoglobin Oxyhemoglobin Sodium Potassium Chloride Carbon Dioxide BUN Creatinine Glucose POC Glucose 128 H 143 H 166 H Uric Acid Calcium Phosphorus Magnesium AST ALT Total Creatine Kinase CK-MB (CK-2) Troponin T NT-Pro-B Natriuret Pep Total Protein Albumin Triglycerides HDL Cholesterol Urine WBC (Auto) Urine Creatinine Urine Total Protein Vancomycin Trough 05/07/19 05/07/19 05/07/19 06:33 07:03 09:35 WBC RBC Hgb Hct MCV MCH MCHC RDW Lymph % (Auto) Camp % (Auto) Eos % (Auto) Lymph # Camp # Eos # Seg Neutrophils % Seg Neuts % (Manual) Lymphocytes % (Manual) Monocytes % (Manual) Eosinophils % (Manual) Nucleated RBC % Seg Neutrophils # Lymphocytes # (Manual) Monocytes # (Manual) Eosinophils # (Manual) PT INR APTT POC ABG pH 7.263 L 7.288 L ABG pH POC ABG pCO2 POC ABG pO2 51 L 56 L ABG pO2 ABG HCO3 ABG O2 Saturation ABG Base Excess ABG Hemoglobin Oxyhemoglobin Sodium Potassium Chloride Carbon Dioxide BUN 76 H Creatinine 3.2 H Glucose 147 H POC Glucose Uric Acid Calcium 7.9 L Phosphorus Magnesium AST ALT Total Creatine Kinase CK-MB (CK-2) Troponin T NT-Pro-B Natriuret Pep Total Protein Albumin Triglycerides HDL Cholesterol Urine WBC (Auto) Urine Creatinine Urine Total Protein Vancomycin Trough 05/07/19 05/07/19 05/07/19 09:35 12:17 13:45 WBC 13.4 H RBC Hgb 11.6 L Hct MCV MCH 27 L MCHC 31 L RDW 17.5 H Lymph % (Auto) Camp % (Auto) Eos % (Auto) Lymph # Camp # Eos # Seg Neutrophils % Seg Neuts % (Manual) Lymphocytes % (Manual) Monocytes % (Manual) Eosinophils % (Manual) Nucleated RBC % Seg Neutrophils # Lymphocytes # (Manual) Monocytes # (Manual) Eosinophils # (Manual) PT INR APTT POC ABG pH ABG pH POC ABG pCO2 POC ABG pO2 ABG pO2 ABG HCO3 ABG O2 Saturation ABG Base Excess ABG Hemoglobin Oxyhemoglobin Sodium Potassium Chloride Carbon Dioxide BUN Creatinine Glucose POC Glucose 130 H Uric Acid 18.0 H Calcium Phosphorus Magnesium AST ALT Total Creatine Kinase CK-MB (CK-2) Troponin T NT-Pro-B Natriuret Pep Total Protein Albumin Triglycerides HDL Cholesterol Urine WBC (Auto) Urine Creatinine Urine Total Protein Vancomycin Trough 05/07/19 05/07/19 05/08/19 17:39 22:40 05:06 WBC RBC Hgb Hct MCV MCH MCHC RDW Lymph % (Auto) Camp % (Auto) Eos % (Auto) Lymph # Camp # Eos # Seg Neutrophils % Seg Neuts % (Manual) Lymphocytes % (Manual) Monocytes % (Manual) Eosinophils % (Manual) Nucleated RBC % Seg Neutrophils # Lymphocytes # (Manual) Monocytes # (Manual) Eosinophils # (Manual) PT INR APTT POC ABG pH ABG pH POC ABG pCO2 POC ABG pO2 ABG pO2 ABG HCO3 ABG O2 Saturation ABG Base Excess ABG Hemoglobin Oxyhemoglobin Sodium Potassium Chloride Carbon Dioxide BUN Creatinine Glucose POC Glucose 116 H 148 H Uric Acid Calcium Phosphorus Magnesium AST ALT Total Creatine Kinase CK-MB (CK-2) Troponin T NT-Pro-B Natriuret Pep Total Protein Albumin Triglycerides HDL Cholesterol Urine WBC (Auto) Urine Creatinine 292.8 H Urine Total Protein 269 H Vancomycin Trough 05/08/19 05/08/19 05/08/19 05:32 11:28 13:48 WBC RBC Hgb Hct MCV MCH MCHC RDW Lymph % (Auto) Camp % (Auto) Eos % (Auto) Lymph # Camp # Eos # Seg Neutrophils % Seg Neuts % (Manual) Lymphocytes % (Manual) Monocytes % (Manual) Eosinophils % (Manual) Nucleated RBC % Seg Neutrophils # Lymphocytes # (Manual) Monocytes # (Manual) Eosinophils # (Manual) PT INR APTT POC ABG pH ABG pH POC ABG pCO2 45.4 H POC ABG pO2 64 L ABG pO2 ABG HCO3 ABG O2 Saturation ABG Base Excess ABG Hemoglobin Oxyhemoglobin Sodium Potassium Chloride Carbon Dioxide BUN 73 H Creatinine 2.7 H Glucose 127 H POC Glucose 107 H Uric Acid Calcium 7.6 L Phosphorus Magnesium AST ALT Total Creatine Kinase CK-MB (CK-2) Troponin T NT-Pro-B Natriuret Pep Total Protein Albumin Triglycerides HDL Cholesterol Urine WBC (Auto) Urine Creatinine Urine Total Protein Vancomycin Trough 05/08/19 05/09/19 05/09/19 17:48 04:50 04:53 WBC RBC 3.07 L Hgb 8.5 L D Hct 29.3 L D MCV 96 H MCH MCHC 29 L RDW 18.1 H Lymph % (Auto) Camp % (Auto) Eos % (Auto) Lymph # Camp # Eos # Seg Neutrophils % Seg Neuts % (Manual) Lymphocytes % (Manual) Monocytes % (Manual) Eosinophils % (Manual) Nucleated RBC % Seg Neutrophils # Lymphocytes # (Manual) Monocytes # (Manual) Eosinophils # (Manual) PT INR APTT POC ABG pH 7.316 L ABG pH POC ABG pCO2 66.0 H POC ABG pO2 69 L ABG pO2 ABG HCO3 ABG O2 Saturation ABG Base Excess ABG Hemoglobin Oxyhemoglobin Sodium Potassium Chloride Carbon Dioxide BUN Creatinine Glucose POC Glucose 155 H Uric Acid Calcium Phosphorus Magnesium AST ALT Total Creatine Kinase CK-MB (CK-2) Troponin T NT-Pro-B Natriuret Pep Total Protein Albumin Triglycerides HDL Cholesterol Urine WBC (Auto) Urine Creatinine Urine Total Protein Vancomycin Trough 05/09/19 05/09/19 05/09/19 05:46 07:24 12:10 WBC RBC Hgb Hct MCV MCH MCHC RDW Lymph % (Auto) Camp % (Auto) Eos % (Auto) Lymph # Camp # Eos # Seg Neutrophils % Seg Neuts % (Manual) Lymphocytes % (Manual) Monocytes % (Manual) Eosinophils % (Manual) Nucleated RBC % Seg Neutrophils # Lymphocytes # (Manual) Monocytes # (Manual) Eosinophils # (Manual) PT INR APTT POC ABG pH ABG pH POC ABG pCO2 POC ABG pO2 ABG pO2 ABG HCO3 ABG O2 Saturation ABG Base Excess ABG Hemoglobin Oxyhemoglobin Sodium Potassium Chloride Carbon Dioxide BUN 73 H Creatinine 2.4 H Glucose 153 H POC Glucose 123 H 148 H Uric Acid Calcium 8.2 L Phosphorus Magnesium AST 45 H ALT Total Creatine Kinase CK-MB (CK-2) Troponin T NT-Pro-B Natriuret Pep Total Protein 6.0 L Albumin 1.9 L Triglycerides HDL Cholesterol Urine WBC (Auto) Urine Creatinine Urine Total Protein Vancomycin Trough 05/09/19 05/09/19 05/10/19 18:23 23:26 04:52 WBC RBC Hgb Hct MCV MCH MCHC RDW Lymph % (Auto) Camp % (Auto) Eos % (Auto) Lymph # Camp # Eos # Seg Neutrophils % Seg Neuts % (Manual) Lymphocytes % (Manual) Monocytes % (Manual) Eosinophils % (Manual) Nucleated RBC % Seg Neutrophils # Lymphocytes # (Manual) Monocytes # (Manual) Eosinophils # (Manual) PT INR APTT POC ABG pH 7.305 L ABG pH POC ABG pCO2 62.6 H POC ABG pO2 ABG pO2 ABG HCO3 ABG O2 Saturation ABG Base Excess ABG Hemoglobin Oxyhemoglobin Sodium Potassium Chloride Carbon Dioxide BUN Creatinine Glucose POC Glucose 147 H 121 H Uric Acid Calcium Phosphorus Magnesium AST ALT Total Creatine Kinase CK-MB (CK-2) Troponin T NT-Pro-B Natriuret Pep Total Protein Albumin Triglycerides HDL Cholesterol Urine WBC (Auto) Urine Creatinine Urine Total Protein Vancomycin Trough 05/10/19 05/10/19 05/10/19 05:00 05:00 05:50 WBC RBC Hgb 10.3 L Hct 33.7 L MCV MCH 27 L MCHC 31 L RDW 17.0 H Lymph % (Auto) Camp % (Auto) Eos % (Auto) Lymph # Camp # Eos # Seg Neutrophils % Seg Neuts % (Manual) Lymphocytes % (Manual) Monocytes % (Manual) Eosinophils % (Manual) Nucleated RBC % Seg Neutrophils # Lymphocytes # (Manual) Monocytes # (Manual) Eosinophils # (Manual) PT INR APTT POC ABG pH ABG pH POC ABG pCO2 POC ABG pO2 ABG pO2 ABG HCO3 ABG O2 Saturation ABG Base Excess ABG Hemoglobin Oxyhemoglobin Sodium 147 H Potassium Chloride Carbon Dioxide BUN 70 H Creatinine 2.6 H Glucose 155 H POC Glucose 158 H Uric Acid Calcium 8.2 L Phosphorus Magnesium AST ALT Total Creatine Kinase CK-MB (CK-2) Troponin T NT-Pro-B Natriuret Pep Total Protein 6.1 L Albumin 2.5 L Triglycerides HDL Cholesterol Urine WBC (Auto) Urine Creatinine Urine Total Protein Vancomycin Trough 05/10/19 05/11/19 05/11/19 13:14 07:26 11:40 WBC RBC Hgb Hct MCV MCH MCHC RDW Lymph % (Auto) Camp % (Auto) Eos % (Auto) Lymph # Camp # Eos # Seg Neutrophils % Seg Neuts % (Manual) Lymphocytes % (Manual) Monocytes % (Manual) Eosinophils % (Manual) Nucleated RBC % Seg Neutrophils # Lymphocytes # (Manual) Monocytes # (Manual) Eosinophils # (Manual) PT INR APTT POC ABG pH ABG pH POC ABG pCO2 48.0 H POC ABG pO2 58 L ABG pO2 ABG HCO3 ABG O2 Saturation ABG Base Excess ABG Hemoglobin Oxyhemoglobin Sodium 147 H Potassium Chloride 107.2 H Carbon Dioxide BUN 67 H Creatinine 2.6 H Glucose 121 H POC Glucose 159 H Uric Acid Calcium Phosphorus Magnesium AST ALT Total Creatine Kinase CK-MB (CK-2) Troponin T NT-Pro-B Natriuret Pep Total Protein Albumin Triglycerides HDL Cholesterol Urine WBC (Auto) Urine Creatinine Urine Total Protein Vancomycin Trough 05/11/19 05/11/19 05/12/19 18:13 23:46 04:40 WBC RBC Hgb Hct MCV MCH MCHC RDW Lymph % (Auto) Camp % (Auto) Eos % (Auto) Lymph # Camp # Eos # Seg Neutrophils % Seg Neuts % (Manual) Lymphocytes % (Manual) Monocytes % (Manual) Eosinophils % (Manual) Nucleated RBC % Seg Neutrophils # Lymphocytes # (Manual) Monocytes # (Manual) Eosinophils # (Manual) PT INR APTT POC ABG pH ABG pH 7.264 L POC ABG pCO2 POC ABG pO2 ABG pO2 66.8 L ABG HCO3 31.0 H ABG O2 Saturation 92.0 L ABG Base Excess ABG Hemoglobin 10.3 L Oxyhemoglobin 90.1 L Sodium Potassium Chloride Carbon Dioxide BUN Creatinine Glucose POC Glucose 120 H 121 H Uric Acid Calcium Phosphorus Magnesium AST ALT Total Creatine Kinase CK-MB (CK-2) Troponin T NT-Pro-B Natriuret Pep Total Protein Albumin Triglycerides HDL Cholesterol Urine WBC (Auto) Urine Creatinine Urine Total Protein Vancomycin Trough 05/12/19 05/12/19 05/12/19 04:45 04:45 11:14 WBC RBC Hgb 10.2 L Hct 32.4 L MCV MCH MCHC 31 L RDW 17.2 H Lymph % (Auto) Camp % (Auto) Eos % (Auto) Lymph # Camp # Eos # Seg Neutrophils % Seg Neuts % (Manual) Lymphocytes % (Manual) Monocytes % (Manual) Eosinophils % (Manual) Nucleated RBC % Seg Neutrophils # Lymphocytes # (Manual) Monocytes # (Manual) Eosinophils # (Manual) PT INR APTT POC ABG pH 7.284 L ABG pH POC ABG pCO2 67.8 H POC ABG pO2 ABG pO2 ABG HCO3 ABG O2 Saturation ABG Base Excess ABG Hemoglobin Oxyhemoglobin Sodium Potassium Chloride Carbon Dioxide BUN 63 H Creatinine 2.4 H Glucose 110 H POC Glucose Uric Acid Calcium Phosphorus Magnesium AST ALT Total Creatine Kinase CK-MB (CK-2) Troponin T NT-Pro-B Natriuret Pep Total Protein Albumin Triglycerides HDL Cholesterol Urine WBC (Auto) Urine Creatinine Urine Total Protein Vancomycin Trough 05/12/19 05/12/19 05/13/19 11:44 23:11 04:30 WBC RBC Hgb Hct MCV MCH MCHC RDW Lymph % (Auto) Camp % (Auto) Eos % (Auto) Lymph # Camp # Eos # Seg Neutrophils % Seg Neuts % (Manual) Lymphocytes % (Manual) Monocytes % (Manual) Eosinophils % (Manual) Nucleated RBC % Seg Neutrophils # Lymphocytes # (Manual) Monocytes # (Manual) Eosinophils # (Manual) PT INR APTT POC ABG pH ABG pH 7.288 L POC ABG pCO2 POC ABG pO2 ABG pO2 109.7 H ABG HCO3 30.9 H ABG O2 Saturation ABG Base Excess 3.2 H ABG Hemoglobin 9.6 L Oxyhemoglobin Sodium Potassium Chloride Carbon Dioxide BUN Creatinine Glucose POC Glucose 126 H 147 H Uric Acid Calcium Phosphorus Magnesium AST ALT Total Creatine Kinase CK-MB (CK-2) Troponin T NT-Pro-B Natriuret Pep Total Protein Albumin Triglycerides HDL Cholesterol Urine WBC (Auto) Urine Creatinine Urine Total Protein Vancomycin Trough 05/13/19 05/13/19 05/14/19 06:27 11:58 04:00 WBC RBC 3.16 L Hgb 9.3 L Hct 27.9 L MCV MCH MCHC RDW 17.1 H Lymph % (Auto) Camp % (Auto) Eos % (Auto) Lymph # Camp # Eos # Seg Neutrophils % Seg Neuts % (Manual) Lymphocytes % (Manual) Monocytes % (Manual) Eosinophils % (Manual) Nucleated RBC % Seg Neutrophils # Lymphocytes # (Manual) Monocytes # (Manual) Eosinophils # (Manual) PT INR APTT POC ABG pH ABG pH POC ABG pCO2 POC ABG pO2 ABG pO2 ABG HCO3 ABG O2 Saturation ABG Base Excess ABG Hemoglobin Oxyhemoglobin Sodium Potassium Chloride Carbon Dioxide BUN Creatinine Glucose POC Glucose 113 H 130 H Uric Acid Calcium Phosphorus Magnesium AST ALT Total Creatine Kinase CK-MB (CK-2) Troponin T NT-Pro-B Natriuret Pep Total Protein Albumin Triglycerides HDL Cholesterol Urine WBC (Auto) Urine Creatinine Urine Total Protein Vancomycin Trough 05/14/19 05/14/19 05/14/19 04:00 04:34 05:32 WBC RBC Hgb Hct MCV MCH MCHC RDW Lymph % (Auto) Camp % (Auto) Eos % (Auto) Lymph # Camp # Eos # Seg Neutrophils % Seg Neuts % (Manual) Lymphocytes % (Manual) Monocytes % (Manual) Eosinophils % (Manual) Nucleated RBC % Seg Neutrophils # Lymphocytes # (Manual) Monocytes # (Manual) Eosinophils # (Manual) PT INR APTT POC ABG pH 7.328 L ABG pH POC ABG pCO2 61.7 H POC ABG pO2 ABG pO2 ABG HCO3 ABG O2 Saturation ABG Base Excess ABG Hemoglobin Oxyhemoglobin Sodium 135 L D Potassium Chloride Carbon Dioxide BUN 57 H Creatinine 2.2 H Glucose 115 H POC Glucose 115 H Uric Acid Calcium 8.1 L Phosphorus Magnesium AST ALT Total Creatine Kinase CK-MB (CK-2) Troponin T NT-Pro-B Natriuret Pep Total Protein Albumin Triglycerides HDL Cholesterol Urine WBC (Auto) Urine Creatinine Urine Total Protein Vancomycin Trough 05/14/19 05/15/19 05/15/19 12:11 05:10 05:24 WBC RBC Hgb Hct MCV MCH MCHC RDW Lymph % (Auto) Camp % (Auto) Eos % (Auto) Lymph # Camp # Eos # Seg Neutrophils % Seg Neuts % (Manual) Lymphocytes % (Manual) Monocytes % (Manual) Eosinophils % (Manual) Nucleated RBC % Seg Neutrophils # Lymphocytes # (Manual) Monocytes # (Manual) Eosinophils # (Manual) PT INR APTT POC ABG pH ABG pH 7.342 L POC ABG pCO2 POC ABG pO2 ABG pO2 79.1 L ABG HCO3 28.2 H ABG O2 Saturation ABG Base Excess ABG Hemoglobin 7.0 L Oxyhemoglobin 94.4 L Sodium Potassium Chloride Carbon Dioxide BUN Creatinine Glucose POC Glucose 110 H 116 H Uric Acid Calcium Phosphorus Magnesium AST ALT Total Creatine Kinase CK-MB (CK-2) Troponin T NT-Pro-B Natriuret Pep Total Protein Albumin Triglycerides HDL Cholesterol Urine WBC (Auto) Urine Creatinine Urine Total Protein Vancomycin Trough 05/15/19 05/15/19 05/16/19 09:00 18:12 04:50 WBC RBC Hgb Hct MCV MCH MCHC RDW Lymph % (Auto) Camp % (Auto) Eos % (Auto) Lymph # Camp # Eos # Seg Neutrophils % Seg Neuts % (Manual) Lymphocytes % (Manual) Monocytes % (Manual) Eosinophils % (Manual) Nucleated RBC % Seg Neutrophils # Lymphocytes # (Manual) Monocytes # (Manual) Eosinophils # (Manual) PT INR APTT POC ABG pH ABG pH 7.250 L POC ABG pCO2 POC ABG pO2 ABG pO2 76.4 L ABG HCO3 ABG O2 Saturation 94.6 L ABG Base Excess -3.1 L ABG Hemoglobin 9.7 L Oxyhemoglobin 92.4 L Sodium Potassium Chloride Carbon Dioxide BUN Creatinine Glucose POC Glucose 110 H Uric Acid Calcium Phosphorus Magnesium AST ALT Total Creatine Kinase CK-MB (CK-2) Troponin T NT-Pro-B Natriuret Pep Total Protein Albumin Triglycerides HDL Cholesterol Urine WBC (Auto) Urine Creatinine Urine Total Protein Vancomycin Trough 20.5 H 05/16/19 05/16/19 05/17/19 05:50 05:50 04:20 WBC RBC 3.36 L 3.44 L Hgb 9.4 L 9.3 L Hct 29.1 L 29.7 L MCV MCH 27 L MCHC 31 L RDW 17.6 H 17.6 H Lymph % (Auto) Camp % (Auto) Eos % (Auto) Lymph # Camp # Eos # Seg Neutrophils % Seg Neuts % (Manual) 77.0 H Lymphocytes % (Manual) 5.0 L Monocytes % (Manual) Eosinophils % (Manual) 10.0 H Nucleated RBC % Seg Neutrophils # Lymphocytes # (Manual) 0.5 L Monocytes # (Manual) Eosinophils # (Manual) 0.9 H PT INR APTT POC ABG pH ABG pH POC ABG pCO2 POC ABG pO2 ABG pO2 ABG HCO3 ABG O2 Saturation ABG Base Excess ABG Hemoglobin Oxyhemoglobin Sodium Potassium Chloride Carbon Dioxide BUN 83 H Creatinine 4.4 H D Glucose 118 H POC Glucose Uric Acid Calcium Phosphorus Magnesium AST ALT Total Creatine Kinase CK-MB (CK-2) Troponin T NT-Pro-B Natriuret Pep Total Protein Albumin Triglycerides HDL Cholesterol Urine WBC (Auto) Urine Creatinine Urine Total Protein Vancomycin Trough 05/17/19 05/17/19 05/18/19 04:30 Unknown 01:50 WBC RBC 3.49 L Hgb 9.4 L Hct 30.0 L MCV MCH 27 L MCHC 31 L RDW 17.8 H Lymph % (Auto) 7.9 L Camp % (Auto) 15.4 H Eos % (Auto) 6.3 H Lymph # 0.7 L Camp # 1.4 H Eos # 0.6 H Seg Neutrophils % 70.2 H Seg Neuts % (Manual) Lymphocytes % (Manual) Monocytes % (Manual) Eosinophils % (Manual) Nucleated RBC % Seg Neutrophils # Lymphocytes # (Manual) Monocytes # (Manual) Eosinophils # (Manual) PT INR APTT POC ABG pH ABG pH 7.272 L POC ABG pCO2 POC ABG pO2 ABG pO2 75.7 L ABG HCO3 ABG O2 Saturation 93.8 L ABG Base Excess -3.0 L ABG Hemoglobin 7.8 L Oxyhemoglobin 91.6 L Sodium Potassium 5.2 H Chloride Carbon Dioxide BUN 96 H Creatinine 5.7 H Glucose 112 H POC Glucose Uric Acid Calcium Phosphorus Magnesium AST ALT Total Creatine Kinase CK-MB (CK-2) Troponin T NT-Pro-B Natriuret Pep Total Protein Albumin Triglycerides 173 H HDL Cholesterol Urine WBC (Auto) Urine Creatinine Urine Total Protein Vancomycin Trough 05/18/19 05/18/19 05/18/19 01:50 04:41 05:24 WBC RBC Hgb Hct MCV MCH MCHC RDW Lymph % (Auto) Camp % (Auto) Eos % (Auto) Lymph # Camp # Eos # Seg Neutrophils % Seg Neuts % (Manual) Lymphocytes % (Manual) Monocytes % (Manual) Eosinophils % (Manual) Nucleated RBC % Seg Neutrophils # Lymphocytes # (Manual) Monocytes # (Manual) Eosinophils # (Manual) PT INR APTT POC ABG pH 7.260 L ABG pH POC ABG pCO2 54.9 H POC ABG pO2 ABG pO2 ABG HCO3 ABG O2 Saturation ABG Base Excess ABG Hemoglobin Oxyhemoglobin Sodium Potassium 5.6 H Chloride Carbon Dioxide BUN 104 H Creatinine 6.6 H Glucose 107 H POC Glucose 106 H Uric Acid Calcium Phosphorus Magnesium AST ALT Total Creatine Kinase CK-MB (CK-2) Troponin T NT-Pro-B Natriuret Pep Total Protein Albumin Triglycerides HDL Cholesterol Urine WBC (Auto) Urine Creatinine Urine Total Protein Vancomycin Trough 05/18/19 05/18/19 05/19/19 11:34 23:26 04:06 WBC RBC 3.22 L Hgb 8.8 L Hct 27.3 L MCV MCH 27 L MCHC RDW 17.5 H Lymph % (Auto) Camp % (Auto) Eos % (Auto) Lymph # Camp # Eos # Seg Neutrophils % Seg Neuts % (Manual) 74.0 H Lymphocytes % (Manual) 4.0 L Monocytes % (Manual) 11.0 H Eosinophils % (Manual) 7.0 H Nucleated RBC % 1.0 H Seg Neutrophils # Lymphocytes # (Manual) 0.3 L Monocytes # (Manual) 0.9 H Eosinophils # (Manual) 0.6 H PT INR APTT POC ABG pH ABG pH POC ABG pCO2 POC ABG pO2 ABG pO2 ABG HCO3 ABG O2 Saturation ABG Base Excess ABG Hemoglobin Oxyhemoglobin Sodium Potassium Chloride Carbon Dioxide BUN Creatinine Glucose POC Glucose 152 H 112 H Uric Acid Calcium Phosphorus Magnesium AST ALT Total Creatine Kinase CK-MB (CK-2) Troponin T NT-Pro-B Natriuret Pep Total Protein Albumin Triglycerides HDL Cholesterol Urine WBC (Auto) Urine Creatinine Urine Total Protein Vancomycin Trough 05/19/19 05/19/19 05/20/19 04:06 06:00 04:00 WBC RBC 3.40 L Hgb 9.2 L Hct 28.6 L MCV MCH 27 L MCHC RDW 17.6 H Lymph % (Auto) Camp % (Auto) Eos % (Auto) Lymph # Camp # Eos # Seg Neutrophils % Seg Neuts % (Manual) Lymphocytes % (Manual) 11.0 L Monocytes % (Manual) Eosinophils % (Manual) 14.0 H Nucleated RBC % Seg Neutrophils # Lymphocytes # (Manual) 1.1 L Monocytes # (Manual) Eosinophils # (Manual) 1.4 H PT INR APTT POC ABG pH ABG pH 7.315 L POC ABG pCO2 POC ABG pO2 ABG pO2 ABG HCO3 ABG O2 Saturation ABG Base Excess ABG Hemoglobin 6.7 L Oxyhemoglobin 94.1 L Sodium Potassium 5.2 H Chloride Carbon Dioxide 21 L BUN 110 H Creatinine 7.2 H Glucose POC Glucose Uric Acid Calcium 8.3 L Phosphorus Magnesium AST ALT Total Creatine Kinase CK-MB (CK-2) Troponin T NT-Pro-B Natriuret Pep Total Protein Albumin Triglycerides HDL Cholesterol Urine WBC (Auto) Urine Creatinine Urine Total Protein Vancomycin Trough 05/20/19 05/20/19 05/20/19 04:00 05:48 12:00 WBC RBC Hgb Hct MCV MCH MCHC RDW Lymph % (Auto) Camp % (Auto) Eos % (Auto) Lymph # Camp # Eos # Seg Neutrophils % Seg Neuts % (Manual) Lymphocytes % (Manual) Monocytes % (Manual) Eosinophils % (Manual) Nucleated RBC % Seg Neutrophils # Lymphocytes # (Manual) Monocytes # (Manual) Eosinophils # (Manual) PT INR APTT POC ABG pH ABG pH 7.281 L POC ABG pCO2 POC ABG pO2 ABG pO2 78.7 L ABG HCO3 ABG O2 Saturation 94.5 L ABG Base Excess -3.0 L ABG Hemoglobin 9.9 L Oxyhemoglobin 92.5 L Sodium 136 L Potassium 5.7 H Chloride 96.3 L Carbon Dioxide BUN 125 H Creatinine 8.3 H Glucose 106 H POC Glucose Uric Acid Calcium Phosphorus Magnesium AST ALT Total Creatine Kinase CK-MB (CK-2) Troponin T NT-Pro-B Natriuret Pep Total Protein Albumin Triglycerides HDL Cholesterol Urine WBC (Auto) 26.0 H Urine Creatinine Urine Total Protein Vancomycin Trough 05/21/19 05/21/19 05/21/19 04:33 05:20 Unknown WBC RBC 3.38 L Hgb 9.1 L Hct 28.5 L MCV MCH 27 L MCHC RDW 17.4 H Lymph % (Auto) Camp % (Auto) Eos % (Auto) Lymph # Camp # Eos # Seg Neutrophils % Seg Neuts % (Manual) 71.0 H Lymphocytes % (Manual) 1.0 L Monocytes % (Manual) 11.0 H Eosinophils % (Manual) 6.0 H Nucleated RBC % Seg Neutrophils # Lymphocytes # (Manual) 0.1 L Monocytes # (Manual) 1.0 H Eosinophils # (Manual) 0.6 H PT INR APTT POC ABG pH 7.315 L ABG pH POC ABG pCO2 57.8 H POC ABG pO2 68 L ABG pO2 ABG HCO3 ABG O2 Saturation ABG Base Excess ABG Hemoglobin Oxyhemoglobin Sodium Potassium Chloride 96.3 L Carbon Dioxide BUN 102 H Creatinine 7.0 H Glucose 103 H POC Glucose Uric Acid Calcium Phosphorus Magnesium AST ALT Total Creatine Kinase CK-MB (CK-2) Troponin T NT-Pro-B Natriuret Pep Total Protein Albumin Triglycerides HDL Cholesterol Urine WBC (Auto) Urine Creatinine Urine Total Protein Vancomycin Trough 05/22/19 05/22/19 05/22/19 03:54 06:25 06:25 WBC RBC 3.22 L Hgb 8.6 L Hct 27.0 L MCV MCH 27 L MCHC RDW 17.5 H Lymph % (Auto) Camp % (Auto) 16.2 H Eos % (Auto) 10.8 H Lymph # Camp # 1.3 H Eos # 0.9 H Seg Neutrophils % Seg Neuts % (Manual) Lymphocytes % (Manual) 10.0 L Monocytes % (Manual) 13.0 H Eosinophils % (Manual) 8.0 H Nucleated RBC % Seg Neutrophils # Lymphocytes # (Manual) 0.9 L Monocytes # (Manual) 1.1 H Eosinophils # (Manual) 0.7 H PT INR APTT POC ABG pH 7.313 L ABG pH POC ABG pCO2 55.0 H POC ABG pO2 ABG pO2 ABG HCO3 ABG O2 Saturation ABG Base Excess ABG Hemoglobin Oxyhemoglobin Sodium 135 L Potassium Chloride 94.3 L Carbon Dioxide BUN 117 H Creatinine 7.8 H Glucose POC Glucose Uric Acid Calcium 8.2 L Phosphorus Magnesium AST ALT Total Creatine Kinase CK-MB (CK-2) Troponin T NT-Pro-B Natriuret Pep Total Protein Albumin Triglycerides HDL Cholesterol Urine WBC (Auto) Urine Creatinine Urine Total Protein Vancomycin Trough 05/23/19 05/24/19 05/24/19 05:21 05:00 05:00 WBC RBC 3.18 L Hgb 8.5 L Hct 26.7 L MCV MCH 27 L MCHC RDW 17.9 H Lymph % (Auto) Camp % (Auto) Eos % (Auto) Lymph # Camp # Eos # Seg Neutrophils % Seg Neuts % (Manual) Lymphocytes % (Manual) Monocytes % (Manual) Eosinophils % (Manual) Nucleated RBC % Seg Neutrophils # Lymphocytes # (Manual) Monocytes # (Manual) Eosinophils # (Manual) PT INR APTT POC ABG pH ABG pH POC ABG pCO2 49.7 H POC ABG pO2 73 L ABG pO2 ABG HCO3 ABG O2 Saturation ABG Base Excess ABG Hemoglobin Oxyhemoglobin Sodium Potassium Chloride 95.7 L Carbon Dioxide BUN 97 H Creatinine 6.5 H Glucose POC Glucose Uric Acid Calcium 8.0 L Phosphorus Magnesium AST ALT Total Creatine Kinase CK-MB (CK-2) Troponin T NT-Pro-B Natriuret Pep Total Protein Albumin Triglycerides HDL Cholesterol Urine WBC (Auto) Urine Creatinine Urine Total Protein Vancomycin Trough 05/24/19 05/25/19 05/25/19 06:17 04:22 15:45 WBC RBC 2.98 L Hgb 8.1 L Hct 24.9 L MCV MCH 27 L MCHC RDW 17.8 H Lymph % (Auto) Camp % (Auto) Eos % (Auto) Lymph # Camp # Eos # Seg Neutrophils % Seg Neuts % (Manual) Lymphocytes % (Manual) Monocytes % (Manual) Eosinophils % (Manual) Nucleated RBC % Seg Neutrophils # Lymphocytes # (Manual) Monocytes # (Manual) Eosinophils # (Manual) PT INR APTT POC ABG pH 7.330 L 7.313 L ABG pH POC ABG pCO2 52.5 H 51.1 H POC ABG pO2 77 L ABG pO2 ABG HCO3 ABG O2 Saturation ABG Base Excess ABG Hemoglobin Oxyhemoglobin Sodium Potassium Chloride Carbon Dioxide BUN Creatinine Glucose POC Glucose Uric Acid Calcium Phosphorus Magnesium AST ALT Total Creatine Kinase CK-MB (CK-2) Troponin T NT-Pro-B Natriuret Pep Total Protein Albumin Triglycerides HDL Cholesterol Urine WBC (Auto) Urine Creatinine Urine Total Protein Vancomycin Trough 05/25/19 05/26/19 05/26/19 15:45 04:13 05:00 WBC RBC 3.10 L Hgb 8.4 L Hct 26.0 L MCV MCH 27 L MCHC RDW 17.4 H Lymph % (Auto) Camp % (Auto) Eos % (Auto) Lymph # Camp # Eos # Seg Neutrophils % Seg Neuts % (Manual) Lymphocytes % (Manual) Monocytes % (Manual) Eosinophils % (Manual) Nucleated RBC % Seg Neutrophils # Lymphocytes # (Manual) Monocytes # (Manual) Eosinophils # (Manual) PT INR APTT POC ABG pH 7.295 L ABG pH POC ABG pCO2 56.5 H POC ABG pO2 63 L ABG pO2 ABG HCO3 ABG O2 Saturation ABG Base Excess ABG Hemoglobin Oxyhemoglobin Sodium 136 L Potassium Chloride 96.8 L Carbon Dioxide BUN 83 H Creatinine 5.9 H Glucose POC Glucose Uric Acid Calcium 7.6 L Phosphorus Magnesium AST ALT Total Creatine Kinase CK-MB (CK-2) Troponin T NT-Pro-B Natriuret Pep Total Protein Albumin Triglycerides HDL Cholesterol Urine WBC (Auto) Urine Creatinine Urine Total Protein Vancomycin Trough 05/26/19 05/27/19 05/28/19 05:00 04:48 04:47 WBC RBC Hgb Hct MCV MCH MCHC RDW Lymph % (Auto) Camp % (Auto) Eos % (Auto) Lymph # Camp # Eos # Seg Neutrophils % Seg Neuts % (Manual) Lymphocytes % (Manual) Monocytes % (Manual) Eosinophils % (Manual) Nucleated RBC % Seg Neutrophils # Lymphocytes # (Manual) Monocytes # (Manual) Eosinophils # (Manual) PT INR APTT POC ABG pH 7.323 L ABG pH 7.284 L POC ABG pCO2 56.2 H POC ABG pO2 ABG pO2 71.6 L ABG HCO3 ABG O2 Saturation 92.0 L ABG Base Excess ABG Hemoglobin 7.7 L Oxyhemoglobin 89.9 L Sodium 136 L Potassium Chloride 95.3 L Carbon Dioxide BUN 96 H Creatinine 6.5 H Glucose 108 H POC Glucose Uric Acid Calcium 7.6 L Phosphorus Magnesium AST ALT Total Creatine Kinase CK-MB (CK-2) Troponin T NT-Pro-B Natriuret Pep Total Protein Albumin Triglycerides HDL Cholesterol Urine WBC (Auto) Urine Creatinine Urine Total Protein Vancomycin Trough 05/28/19 12:30 WBC RBC Hgb Hct MCV MCH MCHC RDW Lymph % (Auto) Camp % (Auto) Eos % (Auto) Lymph # Camp # Eos # Seg Neutrophils % Seg Neuts % (Manual) Lymphocytes % (Manual) Monocytes % (Manual) Eosinophils % (Manual) Nucleated RBC % Seg Neutrophils # Lymphocytes # (Manual) Monocytes # (Manual) Eosinophils # (Manual) PT INR APTT POC ABG pH ABG pH POC ABG pCO2 POC ABG pO2 ABG pO2 ABG HCO3 ABG O2 Saturation ABG Base Excess ABG Hemoglobin Oxyhemoglobin Sodium 135 L Potassium Chloride 95.3 L Carbon Dioxide BUN 82 H Creatinine 6.0 H Glucose POC Glucose Uric Acid Calcium 7.5 L Phosphorus Magnesium AST ALT Total Creatine Kinase CK-MB (CK-2) Troponin T NT-Pro-B Natriuret Pep Total Protein Albumin Triglycerides HDL Cholesterol Urine WBC (Auto) Urine Creatinine Urine Total Protein Vancomycin Trough
--- NOTE | 2019-05-29 12:15 | Progress Note ---
Assessment and Plan Cultures: Blood cultures 05/11/19: no growth thus far Blood cultures 05/18/19 pending Sputum culture 05/11/19: no growth thus far urine culture: no growth resp culture: no growth Blood culture 05/18/2019: no growth thus far urine culture 05/20/2019: normal skin shandra, Jarad albicans sputum culture 05/20/2019: Jarad albicans Blood culture 05/23/2019: no growth A/P: 34-year-old male with obesity admitted with: #Fever, SIRS with shock: shock resolved, intermittently febrile. Initially felt to be ?aspiration related. Apparently was using CPAP. Persistent febrile again, likely ?UTI. Repeat UA showed pyuria, had indwelling Han which was removed again 05/20. Urine culture with normal skin shandra. Fevers now recurred since 05/17. Should eval for worsening pneumonia, sinusitis, but unable to fit in CT scan. candiduria also generally does not require treatment, but in this patient with recurrent fever, reasonable to consider a trial of fluconazole renally adjusted. Likely drug fever, given eosinophilia. #Diffuse rash with eosinophilia: abx classes were changed on 05/25/2019 and then all abx stopped on 05/27/2019. #Acute hypoxic hypercapneic respiratory failure, possibly obesity hypoven tilation syndrome: on the vent. Pulmonary managing. jarad in sputum does not need treatment, it almost never causes a pneumonia and is reflective of colonization, overgrowth in the setting of abx use #Morbid obesity #CARLA: creatinine elevated. dose abx accordingly. Now on HD via vascath #Elevated LFTs: RUQ US showed fatty liver, small GB sludge. Improving. #Acute encephalopathy with ?seizure activity: persistent fevers. Has been receiving empiric meningitis coverage #UTI: s/p han removal on 05/20 Recs: - febrile again, very likely drug fever. Ok for steroids from ID standpoint for eosinophilia and drug rash - would continue to hold off on any antibiotics, he has received multiple abx courses without any obvious infectious cause. D/W Dr. Chen. Burke Wilks MD, FACP [facility] ([facility] C: [phone] O: [phone] F: [phone] Subjective Date of service: 05/29/19 Principal diagnosis: HF; acute hypoxemic resp failure, SIRS, CARLA Interval history: Fever again. Diffuse rash still present. Remains intubated, on the vent. Objective - Exam Narrative Exam: Physical Exam: Constitutional: sedated, intubated. Morbid obesity Head, Ears, Nose: Normocephalic, atraumatic. External ears, nose normal Eyes: Conjunctivae/corneas clear. No icterus. No ptosis. Neck: intubated Oral: intubated Cardiovascular: S1, S2 normal. Respiratory: Good air entry, clear to auscultation bilaterally GI: Soft, non-tender; bowel sounds normal. No peritoneal signs Musculoskeletal: No pedal edema, no cyanosis. Skin: diffuse erythematous rash + Hem/Lymphatic: No palpable cervical or supraclavicular nodes. No lymphangitis Psych: no agitation Neurological: sedated, intubated, on vent - Constitutional Vitals: Vital Signs Temp Pulse Resp BP Pulse Ox 103.2 F H 87 25 H 124/50 98 05/29/19 10:20 05/29/19 12:00 05/29/19 11:36 05/29/19 12:00 05/29/19 11:36 Temperature -Last 24 Hours Temperature 103.2 F Temperature 103 F Temperature 102.5 F Temperature 102.3 F Temperature 101.1 F - Labs CBC & Chem 7: 05/26/19 05:00 05/28/19 12:30 Labs: Abnormal lab results 05/28/19 Range/Units 12:30 Sodium 135 L (137-145) mmol/L Chloride 95.3 L (98-107) mmol/L BUN 82 H (9-20) mg/dL Creatinine 6.0 H (0.8-1.5) mg/dL Calcium 7.5 L (8.4-10.2) mg/dL
[2019-05-29] MEDS: EPOETIN ALFA 10,000 UNIT/1 ML INJ IV PRN (12:53)
--- NOTE | 2019-05-29 14:23 | Progress Note ---
Assessment and Plan Assessment and plan: Patient is a 34-year-old man who is morbidly obese (575 lbs) with unknown medical history who presented to [facility] on 05/01/2019 (I started seeing patient for the first time on 05/20/19, Day 19) with SOB. He was placed on BIPAP and failed. He had a cardiac arrest in ED and was Intubated in ED. On 05/12/19- ETT exchanged due to hypoxia. In the chart there is a report that he has undiagnosis LANDON and using someone else CPAP. I spoke with his mother Maaglis Jay on Saturday May 25, 2019 at [phone], her answered the phone but he is not James' father. She came to the phone. She appeared to be crying, she says she has the FLU but no other family has visit to my knowledge. On 05/27/2018, he bite down on ruptured ETT tube which was replaced. Patient remains intubated on very high PEEP which is preventing Tracheostomy. Tmax since 05/27/2019 has been 100.3F. 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 Acute hypoxic and hypercapenic respiratory failure on vent >96hrs Status post intubation, continue sedation, consulted pulmonary And input noted still on high PEEP, making Tracheostomy difficult to attempt. Rehabilitation Counselor managing RUE PICC right IJ vasc catheter placed on off levaphed since , 05/20/2019 drool, with increased secretion, scopolamine patch applied Bladder scan <100 Right neck IJ vas Catheter dsg changed ?trach consideration, intubated since admission 05/01/19==>still too high PEEP for trach, ?PEG consideration Obesity Hypoventilation syndrome Patient previously on LANDON Management at home but per discussion with family, was non complaint Sepsis- not present on admission -On abx, ID following. LP when able ?Meningitis considering recurrent fever. Doubt, but ID following Acylovir stopped Monitoring Temperature, ID following size prohibits leon CT scanner ?Seizure activity during hospital coarse, none since i have been following since 05/20/19 -Meninigitis prophy done, ID following -Neurology consult -EEG-negative Acute CHF, new onset, diastolic treated with IV lasix now held, on HD now monitor I/O, daily weights Cardiology following. Added beta-jenny, no TIM inhibitor secondary to renal insufficiency Hypertension malignant Start antihypertensive, monitor blood pressure IV hydralazine as needed for further control Acute kidney injury due to ATN ?Vancomycin toxicity, Held. Monitor Nephrology following and input noted. Berkowitz for strict I/Os HD per nephrology Hyperkalemia-Kaylexate given Monitor bmp Passive congestive hepatic syndrome -LFT elevated but trending down -Noted Gallbladder sludge DVT prophylaxis with Lovenox Extreme obesity, bmi 70.1 Full code status. Prognosis guarded History Interval history: Patient was seen and examined. Follow-up on current diagnosis of Respiratory failure. Overnight uneventful. Imaging, nursing note, chart, labs and old chart reviewed. Still intubated and sedated. Hospitalist Physical - Physical exam Narrative exam: Gen: critically ill, bmi 70.1 sedated HEENT: NCAT, OP ETT in place Neck: supple, no adenopathy, no thyromegaly, no JVD CVS/Heart: tachycardiac, normal S1S2, pulses present bilaterally Chest/Lungs: tachypneic, Symmetrical chest expansion, good air entry bilaterally GI/Abdomen: soft, NTND, good bowel sounds, no guarding or rebound : scrotal edema, unable to see his penis Extermity/Skin: good skin turgor MSK: sedated Neuro: sedated Psych: sedated - Constitutional Vitals: Temp Pulse Resp BP Pulse Ox 98.8 F 105 H 25 H 137/53 98 05/29/19 12:00 05/29/19 13:15 05/29/19 11:36 05/29/19 13:15 05/29/19 11:36 General appearance: Present: no acute distress Results - Labs CBC & Chem 7: 05/26/19 05:00 05/28/19 12:30 Labs: Laboratory Last Values WBC 8.1 K/mm3 (4.5-11.0) 05/26/19 05:00 RBC 3.10 M/mm3 (3.65-5.03) L 05/26/19 05:00 Hgb 8.4 gm/dl (11.8-15.2) L 05/26/19 05:00 Hct 26.0 % (35.5-45.6) L 05/26/19 05:00 MCV 84 fl (84-94) 05/26/19 05:00 MCH 27 pg (28-32) L 05/26/19 05:00 MCHC 32 % (32-34) 05/26/19 05:00 RDW 17.4 % (13.2-15.2) H 05/26/19 05:00 Plt Count 247 K/mm3 (140-440) 05/26/19 05:00 Lymph % (Auto) 7.9 % (13.4-35.0) L 05/18/19 01:50 Otero % (Auto) 16.2 % (0.0-7.3) H 05/22/19 06:25 Eos % (Auto) 10.8 % (0.0-4.3) H 05/22/19 06:25 Baso % (Auto) 0.2 % (0.0-1.8) 05/18/19 01:50 Lymph # 0.7 K/mm3 (1.2-5.4) L 05/18/19 01:50 Otero # 1.3 K/mm3 (0.0-0.8) H 05/22/19 06:25 Eos # 0.9 K/mm3 (0.0-0.4) H 05/22/19 06:25 Baso # 0.0 K/mm3 (0.0-0.1) 05/22/19 06:25 Add Manual Diff Complete 05/22/19 06:25 Total Counted 100 05/22/19 06:25 Seg Neutrophils % 65.5 % (40.0-70.0) 05/22/19 06:25 Seg Neuts % (Manual) 65.0 % (40.0-70.0) 05/22/19 06:25 Band Neutrophils % 3.0 % 05/22/19 06:25 Lymphocytes % (Manual) 10.0 % (13.4-35.0) L 05/22/19 06:25 Reactive Lymphs % (Man) 0 % 05/22/19 06:25 Monocytes % (Manual) 13.0 % (0.0-7.3) H 05/22/19 06:25 Eosinophils % (Manual) 8.0 % (0.0-4.3) H 05/22/19 06:25 Basophils % (Manual) 0 % (0.0-1.8) 05/22/19 06:25 Metamyelocytes % 1.0 % 05/22/19 06:25 Myelocytes % 0 % 05/22/19 06:25 Promyelocytes % 0 % 05/22/19 06:25 Blast Cells % 0 % 05/22/19 06:25 Nucleated RBC % Not Reportable 05/22/19 06:25 Seg Neutrophils # 5.3 K/mm3 (1.8-7.7) 05/22/19 06:25 Seg Neutrophils # Man 5.6 K/mm3 (1.8-7.7) 05/22/19 06:25 Band Neutrophils # 0.3 K/mm3 05/22/19 06:25 Lymphocytes # (Manual) 0.9 K/mm3 (1.2-5.4) L 05/22/19 06:25 Abs React Lymphs (Man) 0.0 K/mm3 05/22/19 06:25 Monocytes # (Manual) 1.1 K/mm3 (0.0-0.8) H 05/22/19 06:25 Eosinophils # (Manual) 0.7 K/mm3 (0.0-0.4) H 05/22/19 06:25 Basophils # (Manual) 0.0 K/mm3 (0.0-0.1) 05/22/19 06:25 Metamyelocytes # 0.1 K/mm3 05/22/19 06:25 Myelocytes # 0.0 K/mm3 05/22/19 06:25 Promyelocytes # 0.0 K/mm3 05/22/19 06:25 Blast Cells # 0.0 K/mm3 05/22/19 06:25 WBC Morphology Not Reportable 05/22/19 06:25 Hypersegmented Neuts Not Reportable 05/22/19 06:25 Hyposegmented Neuts Not Reportable 05/22/19 06:25 Hypogranular Neuts Not Reportable 05/22/19 06:25 Smudge Cells Not Reportable 05/22/19 06:25 Toxic Granulation Not Reportable 05/22/19 06:25 Toxic Vacuolation Not Reportable 05/22/19 06:25 Dohle Bodies Not Reportable 05/22/19 06:25 Pelger-Huet Anomaly Not Reportable 05/22/19 06:25 Renea Rods Not Reportable 05/22/19 06:25 Platelet Estimate Consistent w auto 05/22/19 06:25 Clumped Platelets Not Reportable 05/22/19 06:25 Plt Clumps, EDTA Not Reportable 05/22/19 06:25 Large Platelets Not Reportable 05/22/19 06:25 Giant Platelets Not Reportable 05/22/19 06:25 Platelet Satelliting Not Reportable 05/22/19 06:25 Plt Morphology Comment Not Reportable 05/22/19 06:25 RBC Morphology Not Reportable 05/22/19 06:25 Dimorphic RBCs Not Reportable 05/22/19 06:25 Polychromasia Not Reportable 05/22/19 06:25 Hypochromasia Few 05/22/19 06:25 Poikilocytosis Not Reportable 05/22/19 06:25 Anisocytosis Not Reportable 05/22/19 06:25 Microcytosis Not Reportable 05/22/19 06:25 Macrocytosis Not Reportable 05/22/19 06:25 Spherocytes Not Reportable 05/22/19 06:25 Pappenheimer Bodies Not Reportable 05/22/19 06:25 Sickle Cells Not Reportable 05/22/19 06:25 Target Cells Not Reportable 05/22/19 06:25 Tear Drop Cells Not Reportable 05/22/19 06:25 Ovalocytes Few 05/22/19 06:25 Stomatocytes Few 05/22/19 06:25 Helmet Cells Not Reportable 05/22/19 06:25 Segovia-Sedgwick Bodies Not Reportable 05/22/19 06:25 Lincoln Rings Not Reportable 05/22/19 06:25 Dennis Cells Not Reportable 05/22/19 06:25 Bite Cells Not Reportable 05/22/19 06:25 Crenated Cell Not Reportable 05/22/19 06:25 Elliptocytes Not Reportable 05/22/19 06:25 Acanthocytes (Spur) Not Reportable 05/22/19 06:25 Rouleaux Not Reportable 05/22/19 06:25 Hemoglobin C Crystals Not Reportable 05/22/19 06:25 Schistocytes Few 05/22/19 06:25 Malaria parasites Not Reportable 05/22/19 06:25 Syed Bodies Not Reportable 05/22/19 06:25 Hem Pathologist Commnt No 05/22/19 06:25 PT 15.4 Sec. (12.2-14.9) H 05/01/19 Unknown INR 1.23 (0.87-1.13) H 05/01/19 Unknown APTT 22.7 Sec. (24.2-36.6) L 05/01/19 Unknown POC ABG pH 7.381 (7.35-7.45) 05/29/19 05:26 ABG pH 7.284 pH Units (7.350-7.450) L 05/27/19 04:48 POC ABG pCO2 44.4 (35-45) 05/29/19 05:26 ABG pCO2 53.7 mm Hg 05/27/19 04:48 POC ABG pO2 87 (80-105) 05/29/19 05:26 ABG pO2 71.6 mm Hg (80.0-90.0) L 05/27/19 04:48 POC ABG HCO3 26.3 (22-26 mml/L) 05/29/19 05:26 ABG HCO3 24.9 mmol/L (20.0-26.0) 05/27/19 04:48 POC ABG Total CO2 28 (23-27mmol/L) 05/29/19 05:26 POC ABG O2 Sat 96 05/29/19 05:26 ABG O2 Saturation 92.0 % (95.0-99.0) L 05/27/19 04:48 ABG O2 Content 9.9 (0.0-44) 05/27/19 04:48 POC ABG Base Excess 1 ((-2) - (+3)mmol/L) 05/29/19 05:26 ABG Base Excess -1.9 mmol/L (-2.0-3.0) 05/27/19 04:48 ABG Hemoglobin 7.7 gm/dl (14.0-18.0) L 05/27/19 04:48 ABG Carboxyhemoglobin 1.8 % (0.0-5.0) 05/27/19 04:48 ABG Methemoglobin 0.5 % (0.0-1.5) 05/27/19 04:48 Oxyhemoglobin 89.9 % (95.0-99.0) L 05/27/19 04:48 FiO2 40 % 05/29/19 05:26 Sodium 135 mmol/L (137-145) L 05/28/19 12:30 Potassium 4.4 mmol/L (3.6-5.0) 05/28/19 12:30 Chloride 95.3 mmol/L (98-107) L 05/28/19 12:30 Carbon Dioxide 22 mmol/L (22-30) 05/28/19 12:30 Anion Gap 22 mmol/L 05/28/19 12:30 BUN 82 mg/dL (9-20) H 05/28/19 12:30 Creatinine 6.0 mg/dL (0.8-1.5) H 05/28/19 12:30 Estimated GFR 13 ml/min 05/28/19 12:30 BUN/Creatinine Ratio 14 % 05/28/19 12:30 Glucose 98 mg/dL (75-100) 05/28/19 12:30 POC Glucose 136 (70-105) H 05/29/19 12:47 Osmolality 327 Mosm/kg 05/07/19 13:45 Uric Acid 18.0 mg/dL (3.5-7.6) H 05/07/19 13:45 Calcium 7.5 mg/dL (8.4-10.2) L 05/28/19 12:30 Phosphorus 4.90 mg/dL (2.5-4.5) H 05/02/19 00:06 Magnesium 2.30 mg/dL (1.7-2.3) 05/02/19 00:06 Total Bilirubin 0.20 mg/dL (0.1-1.2) 05/10/19 05:00 AST 34 units/L (5-40) 05/10/19 05:00 ALT 35 units/L (7-56) 05/10/19 05:00 Alkaline Phosphatase 45 units/L (35-129) 05/10/19 05:00 Total Creatine Kinase 131 units/L (55-170) 05/02/19 04:41 CK-MB (CK-2) 5.2 ng/mL (0.0-4.0) H 05/02/19 04:41 CK-MB (CK-2) Rel Index 3.9 (0-4) 05/02/19 04:41 Troponin T 0.067 ng/mL (0.00-0.029) H D 05/02/19 04:41 NT-Pro-B Natriuret Pep 6831 pg/mL (0-450) H 05/01/19 Unknown Total Protein 6.1 g/dL (6.3-8.2) L 05/10/19 05:00 Albumin 2.5 g/dL (3.9-5) L 05/10/19 05:00 Albumin/Globulin Ratio 0.7 % 05/10/19 05:00 Triglycerides 173 mg/dL (2-149) H 05/17/19 Unknown Cholesterol 173 mg/dL (50-199) 05/02/19 00:06 LDL Cholesterol Direct 126 mg/dL (50-130) 05/02/19 00:06 HDL Cholesterol 18 mg/dL (40-59) L 05/02/19 00:06 Cholesterol/HDL Ratio 9.61 % 05/02/19 00:06 Procalcitonin 0.54 ng/mL (<0.15) 05/03/19 11:52 Urine Color Yellow (Yellow) 05/20/19 12:00 Urine Turbidity Cloudy (Clear) 05/20/19 12:00 Urine pH 5.0 (5.0-7.0) 05/20/19 12:00 Ur Specific [place] 1.015 (1.003-1.030) 05/20/19 12:00 Urine Protein 30 mg/dl mg/dL (Negative) 05/20/19 12:00 Urine Glucose (UA) Neg mg/dL (Negative) 05/20/19 12:00 Urine Ketones Neg mg/dL (Negative) 05/20/19 12:00 Urine Blood Lg (Negative) 05/20/19 12:00 Urine Nitrite Neg (Negative) 05/20/19 12:00 Urine Bilirubin Neg (Negative) 05/20/19 12:00 Urine Urobilinogen < 2.0 mg/dL (<2.0) 05/20/19 12:00 Ur Leukocyte Esterase Mod (Negative) 05/20/19 12:00 Urine WBC (Auto) 26.0 /HPF (0.0-6.0) H 05/20/19 12:00 Urine RBC (Auto) 83.0 /HPF (0.0-6.0) 05/20/19 12:00 Urine Bacteria (Auto) 1+ /HPF (Negative) 05/20/19 12:00 Uric Acid Crystals 3+ 05/03/19 10:55 Urine Mucus Few /HPF 05/20/19 12:00 Urine Yeast (Budding) 3+ /HPF 05/20/19 12:00 Urine Creatinine 292.8 mg/dL (0.1-20.0) H 05/07/19 22:40 Urine Sodium 11 mmol/L 05/07/19 22:40 Urine Total Protein 269 mg/dL (5-11.8) H 05/07/19 22:40 Vancomycin Trough 20.5 ug/mL (5.0-20.0) H 05/15/19 09:00 Random Vancomycin 11.5 ug/mL (0-40.0) 05/27/19 06:00 AMNA Screen Negative (Negative) 05/07/19 13:45 Hepatitis A IgM Ab Non-reactive (NonReactive) 05/07/19 13:45 Hep Bs Antigen Non-reactive (Negative) 05/07/19 13:45 Hep B Core IgM Ab Non-reactive (NonReactive) 05/07/19 13:45 Hepatitis C Antibody Non-reactive (NonReactive) 05/07/19 13:45 Active Medications - Current Medications Current Medications: Generic Name Dose Route Start Last Admin Trade Name Freq PRN Reason Stop Dose Admin Acetaminophen 650 mg 05/01/19 22:46 05/28/19 23:05 Tylenol PO 650 mg Q4H PRN Administration Pain MILD(1-3)/Fever >100.5/FREEMAN Albumin Human 25 gm 05/19/19 10:47 Alburx 25% (Albumin) IV ARIANE PRN Hypotension Alteplase, Recombinant 2 mg 05/25/19 09:30 05/28/19 21:15 Cathflo IV 2 mg ARIANE PRN Administration LINE FLUSH Lipase/Protease/Amylase 1 each 05/14/19 15:01 Pancremannie Fletcher 10,500 Unit FEEDTUBE PRN PRN For Clogged Feeding Tube Dextrose 50 gm 05/01/19 20:24 D50w (25gm) Vial IV Q30MIN PRN Hypoglycemia Protocol Enoxaparin Sodium 30 mg 05/16/19 10:00 05/29/19 09:08 Enoxaparin SUB-Q 30 mg QDAY VICKEY Administration Epoetin Hugo 10,000 unit 05/19/19 10:47 05/29/19 12:53 Procrit IV 10,000 unit ARIANE PRN Administration hemodialysis Famotidine 20 mg 05/16/19 10:00 05/29/19 09:07 Pepcid PO 20 mg DAILY VICKEY Administration Hydralazine HCl 20 mg 05/13/19 08:09 05/14/19 18:09 Apresoline IV 20 mg Q4HR PRN Administration SBP >/=160 Hydrophilic Ointment 1 applic 05/01/19 21:14 Vaseline Lip Therapy TP Q2HR PRN Dry Lips Fentanyl Citrate 2,000 mcg in 100 mls @ 10.195 mls/hr 05/01/19 22:00 05/29/19 08:44 Fentanyl Drip Premix IV 1 mcg/kg/hr TITR VICKEY 10.195 mls/hr Administration Protocol 1 MCG/KG/HR Propofol 1,000 mg in 100 mls @ 7.011 mls/hr 05/03/19 04:00 05/29/19 13:17 Diprivan 10 Mg/Ml IV 5 mcg/kg/min TITR VICKEY 7.011 mls/hr Administration Protocol 5 MCG/KG/MIN Norepinephrine 4 mg in 250 mls @ 7.5 mls/hr 05/03/19 18:00 05/20/19 08:04 Levophed Drip 4 Mg/Ns 250 Ml IV 0 mcg/min TITR VICKEY 0 mls/hr Titration Protocol 2 MCG/MIN Sodium Chloride 500 mls @ 10 mls/hr 05/06/19 15:00 Nacl 0.9% 500 Ml IV DIRECT VICKEY Nicardipine HCl 50 mg/ Sodium 250 mls @ 25 mls/hr 05/13/19 10:00 05/14/19 23:12 Chloride IV 0 mg/hr TITR VICKEY 0 mls/hr Titration Protocol 5 MG/HR Sodium Chloride 100 mls @ 999 mls/hr 05/19/19 10:47 05/20/19 08:14 Nacl 0.9% IV 999 mls/hr ARIANE PRN Administration Hypotension Labetalol HCl 100 mg 05/14/19 14:00 05/29/19 05:22 Labetalol PO 100 mg Q8HR VICKEY Administration Levetiracetam 750 mg 05/13/19 10:00 05/29/19 09:07 Keppra PO 750 mg BID VICKEY Administration Lorazepam 2 mg 05/06/19 06:22 05/10/19 16:17 Ativan IV 2 mg Q4H PRN Administration Seizures/AGITATION Methylprednisolone Sodium Succinate 125 mg 05/29/19 14:00 Solu-Medrol IV Q8HR VICKEY Multi-Ingred Cream/Lotion/Oil/Oint 1 applic 05/01/19 21:14 Artificial Tears Ophth Oint OU Q4HR PRN Dry Eye(s) Ondansetron HCl 4 mg 05/01/19 22:46 Zofran IV Q8H PRN Nausea And Vomiting Scopolamine 1 each 05/20/19 12:00 05/20/19 12:52 Transderm-Scop TD 1 each Q72HR VICKEY Administration Simple Syrup 15 ml 05/14/19 15:01 Simple Syrup FEEDTUBE PRN PRN Hypoglycemia Simple Syrup 30 ml 05/14/19 15:01 Simple Syrup FEEDTUBE PRN PRN Hypoglycemia Sodium Bicarbonate 325 mg 05/14/19 15:01 Sodium Bicarbonate FEEDTUBE PRN PRN For Clogged Feeding Tube Sodium Chloride 10 ml 05/02/19 10:00 05/29/19 10:00 Sodium Chloride Flush Syringe 10 Ml IV 10 ml BID VICKEY Administration Sodium Chloride 10 ml 05/01/19 22:46 05/05/19 02:28 Sodium Chloride Flush Syringe 10 Ml IV 10 ml PRN PRN Administration LINE FLUSH Nutrition/Malnutrition Assess - Dietary Evaluation Nutrition/Malnutrition Findings: Nutrition Notes Start: 05/04/19 12:54 Freq: Status: Active Protocol: Document 05/28/19 11:56 LP (Rec: 05/28/19 12:04 LP [id number]) Nutrition Notes Initial or Follow up Reassessment Current Diagnosis Acute Kidney Injury,Sepsis, Respiratory Failure Other Pertinent Diagnosis on HD Current Diet Nepro 1.8 at 50 ml/hr Labs/Tests Reviewed Pertinent Medications Reviewed Height 6 ft 4 in Weight 261.4 kg [place] Body Weight (kg) 91.81 BMI 70.1 Weight Status Morbidly Obese Subjective/Other Information Pt tolerating Nepro at 50ml/hr . Pt on HD. Percent of energy/protein needs met: 100%/53% Burn Absent Trauma Absent Current % PO Negligible Minimum of two criteria No physical signs of malnutrition #1 Nutrition Diagnosis Inadequate oral intake Diagnosis Progress(for reassessment Continues documentation) Is patient on ventilator? Yes Is Patient Ambulatory and/or Out of Bed No REE-([facility]-confined to bed) 4392.636 Kcal/Kg value to use for calculation 8 Approximate Energy Requirements Using 2091 kcal/Kg Calculation Used for Recommendations Kcal/kg Additional Notes PRO needs: 225 g (up to 2.5 g/ kg IBW) Fluid needs: 1 ml/kcal Nutrition Intervention Change Diet Order: Continue TF Nutrition Support: Nepro 1.8 at 50 ml/hr Flush with 150ml q4h Kcal 2,160 Protein (gm) 97 Fluid (mL) 872 Goal #1 TF tolerance Goal #2 Meet at least 75% kcal/PRO needs via TF Anticipated Discharge Needs: Unable to determine at this time Follow-Up By: 06/03/19 Additional Comments Follow fot stable intakes
[2019-05-29] MEDS: methylPREDNISolone Sod Succinate 125 MG/2 ML INJ IV SCH ×2 (14:45→22:18)
--- NOTE | 2019-05-29 15:40 | Progress Note ---
Assessment and Plan # Acute kidney injury on HD: creatinine has worsened, potentially from vancomycin toxicity, now HD dependent. Initially with suspected tubular injury in setting of sepsis, respiratory failure, hypotension. - plan to continue HD // or prn; had HD today without issues - can coordinate line holiday if needed given recurrent fevers - continue to assess for renal recovery - continue supportive measures, appreciate pulm and ID input - avoid nephrotoxins - appreciate vascular assistance with vas-cath placement - daily labs # HTN: BP reasonable, continue current management # Anemia: hemoglobin 8.4, pRBC transfusion prn. Continue ESAs with HD # Encephalopathy, seizure disorder, hypoxic respiratory failure, fevers: ID and pulm following We'll continue to follow and make recommendation from renal standpoint for this critically ill patient; we appreciate the opportunity to assist in his care. Subjective Date of service: 05/29/19 Principal diagnosis: HF; acute hypoxemic resp failure, SIRS, CARLA Interval history: No acute events noted. Remains intubated and sedated. Continues to have fevers. Objective - Exam Narrative Exam: General: No acute distress/ intubated and sedated HEENT: ET tube in place Neck: Supple Chest:coarse mechanical breath sounds, PRVC with FiO2 40% Heart: Regular rate and rhythm Abdomen: Soft nontender Extremity: no edema Psych: sedated Derm: No petechial rash - Vital Signs Vital signs: Vital Signs - 12hr 05/29/19 05/29/19 05/29/19 03:53 04:00 05:00 Temperature 102.5 F H Pulse Rate 104 H 105 H Pulse Rate [ From Monitor] Respiratory 26 H 27 H Rate Blood Pressure 151/50 151/50 O2 Sat by Pulse 95 95 Oximetry O2 Sat by Pulse Oximetry [ Bilateral Bases ] 05/29/19 05/29/19 05/29/19 05:22 05:30 06:00 Temperature Pulse Rate 111 H 105 H 100 H Pulse Rate [ From Monitor] Respiratory 25 H 26 H Rate Blood Pressure 138/56 138/56 134/47 O2 Sat by Pulse 95 96 Oximetry O2 Sat by Pulse Oximetry [ Bilateral Bases ] 05/29/19 05/29/19 05/29/19 06:30 07:00 07:30 Temperature Pulse Rate 95 H 103 H 102 H Pulse Rate [ From Monitor] Respiratory 24 26 H 26 H Rate Blood Pressure 126/50 140/47 137/45 O2 Sat by Pulse 97 96 96 Oximetry O2 Sat by Pulse Oximetry [ Bilateral Bases ] 05/29/19 05/29/19 05/29/19 08:00 08:30 09:00 Temperature 103 F H Pulse Rate 107 H 111 H 107 H Pulse Rate [ 106 H From Monitor] Respiratory 28 H 32 H 30 H Rate Blood Pressure 132/45 122/67 122/67 O2 Sat by Pulse 90 93 94 Oximetry O2 Sat by Pulse Oximetry [ Bilateral Bases ] 05/29/19 05/29/19 05/29/19 09:30 10:01 10:20 Temperature 103.2 F H Pulse Rate 118 H 102 H 109 H Pulse Rate [ From Monitor] Respiratory 19 27 H 31 H Rate Blood Pressure 145/44 134/49 134/49 O2 Sat by Pulse 95 96 Oximetry O2 Sat by Pulse 95 Oximetry [ Bilateral Bases ] 05/29/19 05/29/19 05/29/19 10:30 10:45 11:00 Temperature Pulse Rate 106 H 98 H 97 H Pulse Rate [ From Monitor] Respiratory 29 H 26 H Rate Blood Pressure 149/47 139/43 138/44 O2 Sat by Pulse 95 96 Oximetry O2 Sat by Pulse Oximetry [ Bilateral Bases ] 05/29/19 05/29/19 05/29/19 11:15 11:30 11:36 Temperature Pulse Rate 95 H 92 H Pulse Rate [ 93 H From Monitor] Respiratory 25 H 25 H Rate Blood Pressure 137/43 137/43 O2 Sat by Pulse 98 98 Oximetry O2 Sat by Pulse Oximetry [ Bilateral Bases ] 05/29/19 05/29/19 05/29/19 11:45 12:00 12:15 Temperature 98.8 F Pulse Rate 91 H 88 89 Pulse Rate [ From Monitor] Respiratory 17 Rate Blood Pressure 119/49 124/50 126/48 O2 Sat by Pulse 96 Oximetry O2 Sat by Pulse Oximetry [ Bilateral Bases ] 05/29/19 05/29/19 05/29/19 12:30 12:45 13:00 Temperature Pulse Rate 88 100 H 101 H Pulse Rate [ From Monitor] Respiratory 22 25 H Rate Blood Pressure 128/46 138/52 141/54 O2 Sat by Pulse 97 96 Oximetry O2 Sat by Pulse Oximetry [ Bilateral Bases ] 05/29/19 05/29/19 05/29/19 13:15 13:30 13:31 Temperature Pulse Rate 105 H 106 H 104 H Pulse Rate [ From Monitor] Respiratory 23 Rate Blood Pressure 137/53 134/61 134/61 O2 Sat by Pulse 94 Oximetry O2 Sat by Pulse Oximetry [ Bilateral Bases ] 05/29/19 05/29/19 05/29/19 13:45 14:00 14:30 Temperature 100.5 F H Pulse Rate 92 H 91 H 90 Pulse Rate [ From Monitor] Respiratory 18 17 24 Rate Blood Pressure 128/48 128/48 126/47 O2 Sat by Pulse 97 98 Oximetry O2 Sat by Pulse 98 Oximetry [ Bilateral Bases ] 05/29/19 05/29/19 05/29/19 14:45 14:46 15:00 Temperature Pulse Rate 88 99 H Pulse Rate [ From Monitor] Respiratory 27 H 25 H Rate Blood Pressure 126/47 137/49 O2 Sat by Pulse 96 Oximetry O2 Sat by Pulse Oximetry [ Bilateral Bases ] - Lab 05/26/19 05:00 05/28/19 12:30 Most recent lab results ABG pH 7.284 pH Units (7.350-7.450) L 05/27/19 04:48 ABG pCO2 53.7 mm Hg 05/27/19 04:48 ABG pO2 71.6 mm Hg (80.0-90.0) L 05/27/19 04:48 ABG HCO3 24.9 mmol/L (20.0-26.0) 05/27/19 04:48 ABG O2 Saturation 92.0 % (95.0-99.0) L 05/27/19 04:48 Calcium 7.5 mg/dL (8.4-10.2) L 05/28/19 12:30 Phosphorus 4.90 mg/dL (2.5-4.5) H 05/02/19 00:06 Magnesium 2.30 mg/dL (1.7-2.3) 05/02/19 00:06 Urine Creatinine 292.8 mg/dL (0.1-20.0) H 05/07/19 22:40 Urine Sodium 11 mmol/L 05/07/19 22:40 Urine Total Protein 269 mg/dL (5-11.8) H 05/07/19 22:40 Medications & Allergies - Medications Allergies/Adverse Reactions: Allergies No Known Allergies Allergy (Verified 05/01/19 20:27) Home Medications: Home Medications Medication Instructions Recorded Confirmed Last Taken Type No Known Home Medications [No 05/03/19 05/03/19 Unknown History Reported Home Medications] Active Medications: Generic Name Dose Route Start Last Admin Trade Name Christopher PRN Reason Stop Dose Admin Acetaminophen 650 mg 05/01/19 22:46 05/28/19 23:05 Tylenol PO 650 mg Q4H PRN Administration Pain MILD(1-3)/Fever >100.5/FREEMAN Albumin Human 25 gm 05/19/19 10:47 Alburx 25% (Albumin) IV ARIANE PRN Hypotension Alteplase, Recombinant 2 mg 05/25/19 09:30 05/28/19 21:15 Cathflo IV 2 mg ARIANE PRN Administration LINE FLUSH Lipase/Protease/Amylase 1 each 05/14/19 15:01 Pancreaze 10,500 Unit FEEDTUBE PRN PRN For Clogged Feeding Tube Dextrose 50 gm 05/01/19 20:24 D50w (25gm) Vial IV Q30MIN PRN Hypoglycemia Protocol Enoxaparin Sodium 30 mg 05/16/19 10:00 05/29/19 09:08 Enoxaparin SUB-Q 30 mg QDAY VICKEY Administration Epoetin Hugo 10,000 unit 05/19/19 10:47 05/29/19 12:53 Procrit IV 10,000 unit ARIANE PRN Administration hemodialysis Famotidine 20 mg 05/16/19 10:00 05/29/19 09:07 Pepcid PO 20 mg DAILY VICKEY Administration Hydralazine HCl 20 mg 05/13/19 08:09 05/14/19 18:09 Apresoline IV 20 mg Q4HR PRN Administration SBP >/=160 Hydrophilic Ointment 1 applic 05/01/19 21:14 Vaseline Lip Therapy TP Q2HR PRN Dry Lips Fentanyl Citrate 2,000 mcg in 100 mls @ 10.195 mls/hr 05/01/19 22:00 05/29/19 08:44 Fentanyl Drip Premix IV 1 mcg/kg/hr TITR VICKEY 10.195 mls/hr Administration Protocol 1 MCG/KG/HR Propofol 1,000 mg in 100 mls @ 7.011 mls/hr 05/03/19 04:00 05/29/19 14:15 Diprivan 10 Mg/Ml IV 5 mcg/kg/min TITR VICKEY 7.011 mls/hr Titration Protocol 5 MCG/KG/MIN Norepinephrine 4 mg in 250 mls @ 7.5 mls/hr 05/03/19 18:00 05/20/19 08:04 Levophed Drip 4 Mg/Ns 250 Ml IV 0 mcg/min TITR VICKEY 0 mls/hr Titration Protocol 2 MCG/MIN Sodium Chloride 500 mls @ 10 mls/hr 05/06/19 15:00 Nacl 0.9% 500 Ml IV DIRECT VICKEY Nicardipine HCl 50 mg/ Sodium 250 mls @ 25 mls/hr 05/13/19 10:00 05/14/19 23:12 Chloride IV 0 mg/hr TITR VICKEY 0 mls/hr Titration Protocol 5 MG/HR Sodium Chloride 100 mls @ 999 mls/hr 05/19/19 10:47 05/20/19 08:14 Nacl 0.9% IV 999 mls/hr ARIANE PRN Administration Hypotension Labetalol HCl 100 mg 05/14/19 14:00 05/29/19 14:45 Labetalol PO 100 mg Q8HR VICKEY Administration Levetiracetam 750 mg 05/13/19 10:00 05/29/19 09:07 Keppra PO 750 mg BID VICKEY Administration Lorazepam 2 mg 05/06/19 06:22 05/10/19 16:17 Ativan IV 2 mg Q4H PRN Administration Seizures/AGITATION Methylprednisolone Sodium Succinate 125 mg 05/29/19 14:00 05/29/19 14:45 Solu-Medrol IV 125 mg Q8HR VICKEY Administration Multi-Ingred Cream/Lotion/Oil/Oint 1 applic 05/01/19 21:14 Artificial Tears Ophth Oint OU Q4HR PRN Dry Eye(s) Ondansetron HCl 4 mg 05/01/19 22:46 Zofran IV Q8H PRN Nausea And Vomiting Scopolamine 1 each 05/20/19 12:00 05/20/19 12:52 Transderm-Scop TD 1 each Q72HR VICKEY Administration Simple Syrup 15 ml 05/14/19 15:01 Simple Syrup FEEDTUBE PRN PRN Hypoglycemia Simple Syrup 30 ml 05/14/19 15:01 Simple Syrup FEEDTUBE PRN PRN Hypoglycemia Sodium Bicarbonate 325 mg 05/14/19 15:01 Sodium Bicarbonate FEEDTUBE PRN PRN For Clogged Feeding Tube Sodium Chloride 10 ml 05/02/19 10:00 05/29/19 10:00 Sodium Chloride Flush Syringe 10 Ml IV 10 ml BID VICKEY Administration Sodium Chloride 10 ml 05/01/19 22:46 05/05/19 02:28 Sodium Chloride Flush Syringe 10 Ml IV 10 ml PRN PRN Administration LINE FLUSH
[2019-05-29] MEDS: ACETAMINOPHEN 325 MG TAB PO PRN (20:58)
[2019-05-30] MEDS: ACETAMINOPHEN 325 MG TAB PO PRN (04:58)
[2019-05-30] MEDS: fentaNYL DRIP Premix 2,000 MCG/100 ML BAG IV SCH ×2 (04:59→16:56)
[2019-05-30 06:44] LABS: Hematocrit 25.3 % (35.5-45.6); Hemoglobin 8.2 gm/dl (11.8-15.2); Mean Corpuscular HGB Conc 33 % (32-34); Mean Corpuscular Volume 84 fl (84-94); Platelet Count 219 K/mm3 (140-440); Red Blood Count 3.01 M/mm3 (3.65-5.03); Red Cell Distribution Width 17.5 % (13.2-15.2)
[2019-05-30 07:27] LABS: Band Neutrophils # (Manual) 0.1 K/mm3; Basophils % (Manual) 0 % (0.0-1.8); Total Cells Counted 100
[2019-05-30 07:28] LABS: Anisocytosis 1+; Platelet Estimate Consistent w Auto; Stomatocytes Few
[2019-05-30] MEDS: levETIRAcetam 500 MG/5 ML ORAL LIQD PO SCH ×2 (10:09→23:18)
[2019-05-30] MEDS: ENOXAPARIN 30 MG/0.3 ML INJ SUB-Q SCH (10:10)
[2019-05-30] MEDS: FAMOTIDINE 20 MG TAB PO SCH (10:10)
[2019-05-30] MEDS: methylPREDNISolone Sod Succinate 125 MG/2 ML INJ IV SCH ×3 (10:11→23:18)
--- NOTE | 2019-05-30 11:31 | Progress Note ---
Assessment and Plan 34 y/o male with acute hypoxic, hypercapnic respiratory failure currently ventilated and sedated, now with persistent fevers and seizure and on HD 05/30/19: Dropped PEEP down to 14 today. Sats are stable. HD tomorrow per renal after line holiday and permcath placement by vascular. Will continue steroids through tomorrow but if not improvement in fever will stop. ordered scheduled tylenol to go through tomorrow and stop at 1800. Hopeful, neuro murphy that patient will be intact as we come down on his peep. Ultimate goal is to extubate but if not able to will need trach. Today is day 29 of intubation. 1. ID: Patient unable to fit in scanner so CT of head sinus, chest will not happen. ID has placed back on renally adjusted Vanc. he has grown out jarad from urine and a tracheal aspirate 2. Pulm: FIO2 now @ 40%. ABG was good. Will wean after HD today. Can start to come down on PEEP. Will drop to 16 starting tomorrow. 3. Renal: HD per renal, will need permacath per vascular notes if patient can be afebrile. 4. Day number of 29 of intubation. 5. Trying to avoid trach as much as possible. He is on his fourth week of intubation. However still requiring high levels of PEEP. At this point, once weaned to normal PEEP levels, hoping that we can extubate. CCT 31 minutes. Subjective Date of service: 05/30/19 Principal diagnosis: HF; acute hypoxemic resp failure, SIRS, CARLA Interval history: Despite steroids, still spiking temps. Currently with ICE packs on everywhere. Still On Diprovan 5 and Fent at 1. No family present. Objective Vital Signs - 12hr 05/29/19 05/29/19 05/30/19 23:30 23:52 00:00 Temperature Pulse Rate 104 H 103 H 104 H Pulse Rate [ 104 H From Monitor] Respiratory 32 H 30 H Rate Blood Pressure 139/72 150/75 145/76 O2 Sat by Pulse 94 95 93 Oximetry 05/30/19 05/30/19 05/30/19 00:30 01:00 01:30 Temperature Pulse Rate 97 H 106 H 106 H Pulse Rate [ From Monitor] Respiratory 27 H 30 H 29 H Rate Blood Pressure 146/71 156/69 147/76 O2 Sat by Pulse 94 94 93 Oximetry 05/30/19 05/30/19 05/30/19 02:00 02:30 03:00 Temperature Pulse Rate 105 H 101 H 105 H Pulse Rate [ From Monitor] Respiratory 29 H 27 H 28 H Rate Blood Pressure 153/77 148/72 156/77 O2 Sat by Pulse 92 93 92 Oximetry 05/30/19 05/30/19 05/30/19 03:26 03:30 04:00 Temperature 103.1 F H Pulse Rate 106 H 104 H Pulse Rate [ 104 H From Monitor] Respiratory 30 H 21 Rate Blood Pressure 144/74 145/71 O2 Sat by Pulse 93 93 Oximetry 05/30/19 05/30/19 05/30/19 04:30 04:31 05:00 Temperature Pulse Rate 105 H 110 H 101 H Pulse Rate [ From Monitor] Respiratory 27 H Rate Blood Pressure 153/68 161/102 135/57 O2 Sat by Pulse 95 87 94 Oximetry 05/30/19 05/30/19 05/30/19 05:30 06:00 06:30 Temperature Pulse Rate 100 H 114 H 103 H Pulse Rate [ From Monitor] Respiratory 25 H 29 H 26 H Rate Blood Pressure 144/60 152/72 147/77 O2 Sat by Pulse 93 94 92 Oximetry 05/30/19 05/30/19 05/30/19 07:00 07:30 08:00 Temperature Pulse Rate 111 H 111 H 105 H Pulse Rate [ From Monitor] Respiratory 48 H 33 H 27 H Rate Blood Pressure 148/74 150/76 143/62 O2 Sat by Pulse 93 92 91 Oximetry 05/30/19 05/30/19 05/30/19 08:30 09:00 09:19 Temperature Pulse Rate 97 H 93 H 102 H Pulse Rate [ From Monitor] Respiratory 26 H 25 H Rate Blood Pressure 138/67 135/69 137/73 O2 Sat by Pulse 94 94 96 Oximetry 05/30/19 05/30/19 05/30/19 09:30 10:00 10:30 Temperature Pulse Rate 100 H 89 96 H Pulse Rate [ From Monitor] Respiratory 29 H 17 25 H Rate Blood Pressure 142/84 143/78 147/80 O2 Sat by Pulse 93 94 94 Oximetry 05/30/19 11:00 Temperature Pulse Rate 86 Pulse Rate [ From Monitor] Respiratory 25 H Rate Blood Pressure 147/74 O2 Sat by Pulse 95 Oximetry Constitutional: other (morbidly obese male, sedated on vent, orally intubated) Eyes: non-icteric ENT: oropharynx moist Neck: other (extremely large in circumference) Effort: normal Ascultation: Bilateral: diminished breath sounds (secondary to body habitus) Cardiovascular: regular rate and rhythm (no mrg) Gastrointestinal: normoactive bowel sounds, non-tender, other (obese) Integumentary: other (L hand is wrapped) Extremities: no cyanosis, pink and warm, other (1+ generalized edema) Neurologic: unable to assess Psychiatric: other (unable to assess) CBC and BMP: 05/30/19 05:38 05/28/19 12:30 ABG, PT/INR, D-dimer: ABG POC ABG pH 7.388 (7.35-7.45) 05/30/19 04:30 ABG pH 7.284 pH Units (7.350-7.450) L 05/27/19 04:48 POC ABG pCO2 42.3 (35-45) 05/30/19 04:30 ABG pCO2 53.7 mm Hg 05/27/19 04:48 POC ABG pO2 73 (80-105) L 05/30/19 04:30 ABG pO2 71.6 mm Hg (80.0-90.0) L 05/27/19 04:48 POC ABG HCO3 25.5 (22-26 mml/L) 05/30/19 04:30 POC ABG Total CO2 27 (23-27mmol/L) 05/30/19 04:30 POC ABG O2 Sat 94 05/30/19 04:30 ABG O2 Saturation 92.0 % (95.0-99.0) L 05/27/19 04:48 PT/INR, D-dimer PT 15.4 Sec. (12.2-14.9) H 05/01/19 Unknown INR 1.23 (0.87-1.13) H 05/01/19 Unknown Abnormal lab findings: Abnormal Labs 05/01/19 05/01/19 05/01/19 17:50 19:26 22:36 WBC RBC Hgb Hct MCV MCH MCHC RDW Lymph % (Auto) [place] % (Auto) Eos % (Auto) Lymph # [place] # Eos # Seg Neutrophils % Seg Neuts % (Manual) Lymphocytes % (Manual) Monocytes % (Manual) Eosinophils % (Manual) Nucleated RBC % Seg Neutrophils # Seg Neutrophils # Man Lymphocytes # (Manual) Monocytes # (Manual) Eosinophils # (Manual) PT INR APTT POC ABG pH 7.272 L 7.331 L ABG pH POC ABG pCO2 52.8 H POC ABG pO2 ABG pO2 ABG HCO3 ABG O2 Saturation ABG Base Excess ABG Hemoglobin Oxyhemoglobin Sodium 136 L Potassium 6.5 H* Chloride 97.2 L Carbon Dioxide BUN 60 H Creatinine Glucose 113 H POC Glucose Uric Acid Calcium Phosphorus Magnesium 2.40 H AST 139 H ALT 154 H Total Creatine Kinase CK-MB (CK-2) Troponin T NT-Pro-B Natriuret Pep Total Protein Albumin 3.8 L Triglycerides HDL Cholesterol Urine WBC (Auto) Urine Creatinine Urine Total Protein Vancomycin Trough 05/01/19 05/01/19 05/01/19 Unknown Unknown Unknown WBC 16.1 H RBC Hgb Hct MCV MCH MCHC RDW 17.2 H Lymph % (Auto) [place] % (Auto) 9.6 H Eos % (Auto) Lymph # [place] # 1.5 H Eos # Seg Neutrophils % 73.0 H Seg Neuts % (Manual) Lymphocytes % (Manual) Monocytes % (Manual) Eosinophils % (Manual) Nucleated RBC % Seg Neutrophils # 11.7 H Seg Neutrophils # Man Lymphocytes # (Manual) Monocytes # (Manual) Eosinophils # (Manual) PT 15.4 H INR 1.23 H APTT 22.7 L POC ABG pH ABG pH POC ABG pCO2 POC ABG pO2 ABG pO2 ABG HCO3 ABG O2 Saturation ABG Base Excess ABG Hemoglobin Oxyhemoglobin Sodium Potassium Chloride Carbon Dioxide BUN Creatinine Glucose POC Glucose Uric Acid Calcium Phosphorus Magnesium AST ALT Total Creatine Kinase CK-MB (CK-2) Troponin T NT-Pro-B Natriuret Pep 6831 H Total Protein Albumin Triglycerides HDL Cholesterol Urine WBC (Auto) Urine Creatinine Urine Total Protein Vancomycin Trough 05/01/19 05/02/19 05/02/19 Unknown 00:06 00:06 WBC RBC Hgb Hct MCV MCH MCHC RDW Lymph % (Auto) [place] % (Auto) Eos % (Auto) Lymph # [place] # Eos # Seg Neutrophils % Seg Neuts % (Manual) Lymphocytes % (Manual) Monocytes % (Manual) Eosinophils % (Manual) Nucleated RBC % Seg Neutrophils # Seg Neutrophils # Man Lymphocytes # (Manual) Monocytes # (Manual) Eosinophils # (Manual) PT INR APTT POC ABG pH ABG pH POC ABG pCO2 POC ABG pO2 ABG pO2 ABG HCO3 ABG O2 Saturation ABG Base Excess ABG Hemoglobin Oxyhemoglobin Sodium Potassium Chloride Carbon Dioxide BUN Creatinine Glucose POC Glucose Uric Acid Calcium Phosphorus 4.90 H Magnesium AST ALT Total Creatine Kinase 226 H CK-MB (CK-2) 5.7 H Troponin T 0.044 H NT-Pro-B Natriuret Pep Total Protein Albumin Triglycerides 182 H HDL Cholesterol 18 L Urine WBC (Auto) Urine Creatinine Urine Total Protein Vancomycin Trough 05/02/19 05/02/19 05/02/19 02:08 04:40 04:41 WBC 17.6 H RBC Hgb Hct MCV MCH 27 L MCHC RDW 17.4 H Lymph % (Auto) 10.2 L [place] % (Auto) 11.0 H Eos % (Auto) Lymph # [place] # 1.9 H Eos # Seg Neutrophils % 78.0 H Seg Neuts % (Manual) Lymphocytes % (Manual) Monocytes % (Manual) Eosinophils % (Manual) Nucleated RBC % Seg Neutrophils # 13.8 H Seg Neutrophils # Man Lymphocytes # (Manual) Monocytes # (Manual) Eosinophils # (Manual) PT INR APTT POC ABG pH ABG pH POC ABG pCO2 46.8 H POC ABG pO2 63 L ABG pO2 ABG HCO3 ABG O2 Saturation ABG Base Excess ABG Hemoglobin Oxyhemoglobin Sodium Potassium Chloride 96.3 L Carbon Dioxide BUN 63 H Creatinine 1.7 H Glucose POC Glucose Uric Acid Calcium Phosphorus Magnesium AST ALT Total Creatine Kinase CK-MB (CK-2) Troponin T NT-Pro-B Natriuret Pep Total Protein Albumin Triglycerides HDL Cholesterol Urine WBC (Auto) Urine Creatinine Urine Total Protein Vancomycin Trough 05/02/19 05/02/19 05/02/19 04:41 04:41 16:05 WBC RBC Hgb Hct MCV MCH MCHC RDW Lymph % (Auto) [place] % (Auto) Eos % (Auto) Lymph # [place] # Eos # Seg Neutrophils % Seg Neuts % (Manual) Lymphocytes % (Manual) Monocytes % (Manual) Eosinophils % (Manual) Nucleated RBC % Seg Neutrophils # Seg Neutrophils # Man Lymphocytes # (Manual) Monocytes # (Manual) Eosinophils # (Manual) PT INR APTT POC ABG pH ABG pH POC ABG pCO2 POC ABG pO2 ABG pO2 66.6 L ABG HCO3 31.9 H ABG O2 Saturation 92.5 L ABG Base Excess 5.8 H ABG Hemoglobin 13.3 L Oxyhemoglobin 90.6 L Sodium Potassium Chloride 97.2 L Carbon Dioxide BUN 61 H Creatinine 1.8 H Glucose POC Glucose Uric Acid Calcium Phosphorus Magnesium AST ALT Total Creatine Kinase CK-MB (CK-2) 5.2 H Troponin T 0.067 H D NT-Pro-B Natriuret Pep Total Protein Albumin Triglycerides HDL Cholesterol Urine WBC (Auto) Urine Creatinine Urine Total Protein Vancomycin Trough 05/02/19 05/03/19 05/03/19 20:39 04:35 05:05 WBC 11.8 H RBC Hgb Hct MCV MCH 27 L MCHC 31 L RDW 17.2 H Lymph % (Auto) [place] % (Auto) Eos % (Auto) Lymph # [place] # Eos # Seg Neutrophils % Seg Neuts % (Manual) Lymphocytes % (Manual) Monocytes % (Manual) Eosinophils % (Manual) Nucleated RBC % Seg Neutrophils # Seg Neutrophils # Man Lymphocytes # (Manual) Monocytes # (Manual) Eosinophils # (Manual) PT INR APTT POC ABG pH ABG pH POC ABG pCO2 53.6 H 54.0 H POC ABG pO2 55 L 63 L ABG pO2 ABG HCO3 ABG O2 Saturation ABG Base Excess ABG Hemoglobin Oxyhemoglobin Sodium Potassium Chloride Carbon Dioxide BUN Creatinine Glucose POC Glucose Uric Acid Calcium Phosphorus Magnesium AST ALT Total Creatine Kinase CK-MB (CK-2) Troponin T NT-Pro-B Natriuret Pep Total Protein Albumin Triglycerides HDL Cholesterol Urine WBC (Auto) Urine Creatinine Urine Total Protein Vancomycin Trough 05/03/19 05/03/19 05/03/19 05:05 10:55 16:48 WBC RBC Hgb Hct MCV MCH MCHC RDW Lymph % (Auto) [place] % (Auto) Eos % (Auto) Lymph # [place] # Eos # Seg Neutrophils % Seg Neuts % (Manual) Lymphocytes % (Manual) Monocytes % (Manual) Eosinophils % (Manual) Nucleated RBC % Seg Neutrophils # Seg Neutrophils # Man Lymphocytes # (Manual) Monocytes # (Manual) Eosinophils # (Manual) PT INR APTT POC ABG pH 7.604 H ABG pH POC ABG pCO2 POC ABG pO2 58 L ABG pO2 ABG HCO3 ABG O2 Saturation ABG Base Excess ABG Hemoglobin Oxyhemoglobin Sodium Potassium Chloride Carbon Dioxide BUN 52 H Creatinine 1.9 H Glucose 103 H POC Glucose Uric Acid Calcium Phosphorus Magnesium AST ALT Total Creatine Kinase CK-MB (CK-2) Troponin T NT-Pro-B Natriuret Pep Total Protein Albumin Triglycerides HDL Cholesterol Urine WBC (Auto) 33.0 H Urine Creatinine Urine Total Protein Vancomycin Trough 05/04/19 05/04/19 05/04/19 04:49 06:50 06:50 WBC 16.0 H RBC Hgb Hct MCV MCH 27 L MCHC 31 L RDW 17.8 H Lymph % (Auto) [place] % (Auto) Eos % (Auto) Lymph # [place] # Eos # Seg Neutrophils % Seg Neuts % (Manual) Lymphocytes % (Manual) Monocytes % (Manual) Eosinophils % (Manual) Nucleated RBC % Seg Neutrophils # Seg Neutrophils # Man Lymphocytes # (Manual) Monocytes # (Manual) Eosinophils # (Manual) PT INR APTT POC ABG pH 7.273 L ABG pH POC ABG pCO2 POC ABG pO2 ABG pO2 ABG HCO3 ABG O2 Saturation ABG Base Excess ABG Hemoglobin Oxyhemoglobin Sodium 148 H Potassium 5.5 H Chloride Carbon Dioxide BUN 53 H Creatinine 3.3 H D Glucose 106 H POC Glucose Uric Acid Calcium 8.3 L Phosphorus Magnesium AST ALT Total Creatine Kinase CK-MB (CK-2) Troponin T NT-Pro-B Natriuret Pep Total Protein Albumin Triglycerides HDL Cholesterol Urine WBC (Auto) Urine Creatinine Urine Total Protein Vancomycin Trough 05/05/19 05/05/19 05/05/19 00:05 04:30 05:00 WBC RBC Hgb Hct MCV MCH MCHC RDW Lymph % (Auto) [place] % (Auto) Eos % (Auto) Lymph # [place] # Eos # Seg Neutrophils % Seg Neuts % (Manual) Lymphocytes % (Manual) Monocytes % (Manual) Eosinophils % (Manual) Nucleated RBC % Seg Neutrophils # Seg Neutrophils # Man Lymphocytes # (Manual) Monocytes # (Manual) Eosinophils # (Manual) PT INR APTT POC ABG pH 7.225 L ABG pH POC ABG pCO2 > 70 H POC ABG pO2 ABG pO2 ABG HCO3 ABG O2 Saturation ABG Base Excess ABG Hemoglobin Oxyhemoglobin Sodium 151 H Potassium 5.1 H Chloride Carbon Dioxide BUN 64 H Creatinine 3.5 H Glucose 117 H POC Glucose 141 H Uric Acid Calcium 7.5 L Phosphorus Magnesium AST 93 H ALT 65 H Total Creatine Kinase CK-MB (CK-2) Troponin T NT-Pro-B Natriuret Pep Total Protein Albumin 2.9 L Triglycerides HDL Cholesterol Urine WBC (Auto) Urine Creatinine Urine Total Protein Vancomycin Trough 05/05/19 05/05/19 05/05/19 05:00 12:02 17:46 WBC 12.0 H RBC Hgb 11.3 L Hct MCV MCH 27 L MCHC 30 L RDW 18.4 H Lymph % (Auto) 7.9 L [place] % (Auto) 10.2 H Eos % (Auto) Lymph # 1.0 L [place] # 1.2 H Eos # Seg Neutrophils % 80.8 H Seg Neuts % (Manual) Lymphocytes % (Manual) Monocytes % (Manual) Eosinophils % (Manual) Nucleated RBC % Seg Neutrophils # 9.7 H Seg Neutrophils # Man Lymphocytes # (Manual) Monocytes # (Manual) Eosinophils # (Manual) PT INR APTT POC ABG pH ABG pH POC ABG pCO2 POC ABG pO2 ABG pO2 ABG HCO3 ABG O2 Saturation ABG Base Excess ABG Hemoglobin Oxyhemoglobin Sodium Potassium Chloride Carbon Dioxide BUN Creatinine Glucose POC Glucose 125 H 112 H Uric Acid Calcium Phosphorus Magnesium AST ALT Total Creatine Kinase CK-MB (CK-2) Troponin T NT-Pro-B Natriuret Pep Total Protein Albumin Triglycerides HDL Cholesterol Urine WBC (Auto) Urine Creatinine Urine Total Protein Vancomycin Trough 05/05/19 05/06/19 05/06/19 23:42 03:58 04:45 WBC 11.4 H RBC Hgb 10.7 L Hct 34.2 L MCV MCH 27 L MCHC 31 L RDW 16.9 H Lymph % (Auto) [place] % (Auto) Eos % (Auto) Lymph # [place] # Eos # Seg Neutrophils % Seg Neuts % (Manual) Lymphocytes % (Manual) Monocytes % (Manual) Eosinophils % (Manual) Nucleated RBC % Seg Neutrophils # Seg Neutrophils # Man Lymphocytes # (Manual) Monocytes # (Manual) Eosinophils # (Manual) PT INR APTT POC ABG pH ABG pH POC ABG pCO2 62.4 H POC ABG pO2 111 H ABG pO2 ABG HCO3 ABG O2 Saturation ABG Base Excess ABG Hemoglobin Oxyhemoglobin Sodium Potassium Chloride Carbon Dioxide BUN Creatinine Glucose POC Glucose 128 H Uric Acid Calcium Phosphorus Magnesium AST ALT Total Creatine Kinase CK-MB (CK-2) Troponin T NT-Pro-B Natriuret Pep Total Protein Albumin Triglycerides HDL Cholesterol Urine WBC (Auto) Urine Creatinine Urine Total Protein Vancomycin Trough 05/06/19 05/06/19 05/06/19 04:45 05:33 12:30 WBC RBC Hgb Hct MCV MCH MCHC RDW Lymph % (Auto) [place] % (Auto) Eos % (Auto) Lymph # [place] # Eos # Seg Neutrophils % Seg Neuts % (Manual) Lymphocytes % (Manual) Monocytes % (Manual) Eosinophils % (Manual) Nucleated RBC % Seg Neutrophils # Seg Neutrophils # Man Lymphocytes # (Manual) Monocytes # (Manual) Eosinophils # (Manual) PT INR APTT POC ABG pH ABG pH POC ABG pCO2 POC ABG pO2 ABG pO2 ABG HCO3 ABG O2 Saturation ABG Base Excess ABG Hemoglobin Oxyhemoglobin Sodium 149 H Potassium Chloride Carbon Dioxide 31 H BUN 67 H Creatinine 3.2 H Glucose 125 H POC Glucose 117 H 116 H Uric Acid Calcium 7.5 L Phosphorus Magnesium AST ALT Total Creatine Kinase CK-MB (CK-2) Troponin T NT-Pro-B Natriuret Pep Total Protein Albumin Triglycerides HDL Cholesterol Urine WBC (Auto) Urine Creatinine Urine Total Protein Vancomycin Trough 05/06/19 05/06/19 05/07/19 18:34 23:16 05:22 WBC RBC Hgb Hct MCV MCH MCHC RDW Lymph % (Auto) [place] % (Auto) Eos % (Auto) Lymph # [place] # Eos # Seg Neutrophils % Seg Neuts % (Manual) Lymphocytes % (Manual) Monocytes % (Manual) Eosinophils % (Manual) Nucleated RBC % Seg Neutrophils # Seg Neutrophils # Man Lymphocytes # (Manual) Monocytes # (Manual) Eosinophils # (Manual) PT INR APTT POC ABG pH ABG pH POC ABG pCO2 POC ABG pO2 ABG pO2 ABG HCO3 ABG O2 Saturation ABG Base Excess ABG Hemoglobin Oxyhemoglobin Sodium Potassium Chloride Carbon Dioxide BUN Creatinine Glucose POC Glucose 128 H 143 H 166 H Uric Acid Calcium Phosphorus Magnesium AST ALT Total Creatine Kinase CK-MB (CK-2) Troponin T NT-Pro-B Natriuret Pep Total Protein Albumin Triglycerides HDL Cholesterol Urine WBC (Auto) Urine Creatinine Urine Total Protein Vancomycin Trough 05/07/19 05/07/19 05/07/19 06:33 07:03 09:35 WBC RBC Hgb Hct MCV MCH MCHC RDW Lymph % (Auto) [place] % (Auto) Eos % (Auto) Lymph # [place] # Eos # Seg Neutrophils % Seg Neuts % (Manual) Lymphocytes % (Manual) Monocytes % (Manual) Eosinophils % (Manual) Nucleated RBC % Seg Neutrophils # Seg Neutrophils # Man Lymphocytes # (Manual) Monocytes # (Manual) Eosinophils # (Manual) PT INR APTT POC ABG pH 7.263 L 7.288 L ABG pH POC ABG pCO2 POC ABG pO2 51 L 56 L ABG pO2 ABG HCO3 ABG O2 Saturation ABG Base Excess ABG Hemoglobin Oxyhemoglobin Sodium Potassium Chloride Carbon Dioxide BUN 76 H Creatinine 3.2 H Glucose 147 H POC Glucose Uric Acid Calcium 7.9 L Phosphorus Magnesium AST ALT Total Creatine Kinase CK-MB (CK-2) Troponin T NT-Pro-B Natriuret Pep Total Protein Albumin Triglycerides HDL Cholesterol Urine WBC (Auto) Urine Creatinine Urine Total Protein Vancomycin Trough 05/07/19 05/07/19 05/07/19 09:35 12:17 13:45 WBC 13.4 H RBC Hgb 11.6 L Hct MCV MCH 27 L MCHC 31 L RDW 17.5 H Lymph % (Auto) [place] % (Auto) Eos % (Auto) Lymph # [place] # Eos # Seg Neutrophils % Seg Neuts % (Manual) Lymphocytes % (Manual) Monocytes % (Manual) Eosinophils % (Manual) Nucleated RBC % Seg Neutrophils # Seg Neutrophils # Man Lymphocytes # (Manual) Monocytes # (Manual) Eosinophils # (Manual) PT INR APTT POC ABG pH ABG pH POC ABG pCO2 POC ABG pO2 ABG pO2 ABG HCO3 ABG O2 Saturation ABG Base Excess ABG Hemoglobin Oxyhemoglobin Sodium Potassium Chloride Carbon Dioxide BUN Creatinine Glucose POC Glucose 130 H Uric Acid 18.0 H Calcium Phosphorus Magnesium AST ALT Total Creatine Kinase CK-MB (CK-2) Troponin T NT-Pro-B Natriuret Pep Total Protein Albumin Triglycerides HDL Cholesterol Urine WBC (Auto) Urine Creatinine Urine Total Protein Vancomycin Trough 05/07/19 05/07/19 05/08/19 17:39 22:40 05:06 WBC RBC Hgb Hct MCV MCH MCHC RDW Lymph % (Auto) [place] % (Auto) Eos % (Auto) Lymph # [place] # Eos # Seg Neutrophils % Seg Neuts % (Manual) Lymphocytes % (Manual) Monocytes % (Manual) Eosinophils % (Manual) Nucleated RBC % Seg Neutrophils # Seg Neutrophils # Man Lymphocytes # (Manual) Monocytes # (Manual) Eosinophils # (Manual) PT INR APTT POC ABG pH ABG pH POC ABG pCO2 POC ABG pO2 ABG pO2 ABG HCO3 ABG O2 Saturation ABG Base Excess ABG Hemoglobin Oxyhemoglobin Sodium Potassium Chloride Carbon Dioxide BUN Creatinine Glucose POC Glucose 116 H 148 H Uric Acid Calcium Phosphorus Magnesium AST ALT Total Creatine Kinase CK-MB (CK-2) Troponin T NT-Pro-B Natriuret Pep Total Protein Albumin Triglycerides HDL Cholesterol Urine WBC (Auto) Urine Creatinine 292.8 H Urine Total Protein 269 H Vancomycin Trough 05/08/19 05/08/19 05/08/19 05:32 11:28 13:48 WBC RBC Hgb Hct MCV MCH MCHC RDW Lymph % (Auto) [place] % (Auto) Eos % (Auto) Lymph # [place] # Eos # Seg Neutrophils % Seg Neuts % (Manual) Lymphocytes % (Manual) Monocytes % (Manual) Eosinophils % (Manual) Nucleated RBC % Seg Neutrophils # Seg Neutrophils # Man Lymphocytes # (Manual) Monocytes # (Manual) Eosinophils # (Manual) PT INR APTT POC ABG pH ABG pH POC ABG pCO2 45.4 H POC ABG pO2 64 L ABG pO2 ABG HCO3 ABG O2 Saturation ABG Base Excess ABG Hemoglobin Oxyhemoglobin Sodium Potassium Chloride Carbon Dioxide BUN 73 H Creatinine 2.7 H Glucose 127 H POC Glucose 107 H Uric Acid Calcium 7.6 L Phosphorus Magnesium AST ALT Total Creatine Kinase CK-MB (CK-2) Troponin T NT-Pro-B Natriuret Pep Total Protein Albumin Triglycerides HDL Cholesterol Urine WBC (Auto) Urine Creatinine Urine Total Protein Vancomycin Trough 05/08/19 05/09/19 05/09/19 17:48 04:50 04:53 WBC RBC 3.07 L Hgb 8.5 L D Hct 29.3 L D MCV 96 H MCH MCHC 29 L RDW 18.1 H Lymph % (Auto) [place] % (Auto) Eos % (Auto) Lymph # [place] # Eos # Seg Neutrophils % Seg Neuts % (Manual) Lymphocytes % (Manual) Monocytes % (Manual) Eosinophils % (Manual) Nucleated RBC % Seg Neutrophils # Seg Neutrophils # Man Lymphocytes # (Manual) Monocytes # (Manual) Eosinophils # (Manual) PT INR APTT POC ABG pH 7.316 L ABG pH POC ABG pCO2 66.0 H POC ABG pO2 69 L ABG pO2 ABG HCO3 ABG O2 Saturation ABG Base Excess ABG Hemoglobin Oxyhemoglobin Sodium Potassium Chloride Carbon Dioxide BUN Creatinine Glucose POC Glucose 155 H Uric Acid Calcium Phosphorus Magnesium AST ALT Total Creatine Kinase CK-MB (CK-2) Troponin T NT-Pro-B Natriuret Pep Total Protein Albumin Triglycerides HDL Cholesterol Urine WBC (Auto) Urine Creatinine Urine Total Protein Vancomycin Trough 05/09/19 05/09/19 05/09/19 05:46 07:24 12:10 WBC RBC Hgb Hct MCV MCH MCHC RDW Lymph % (Auto) [place] % (Auto) Eos % (Auto) Lymph # [place] # Eos # Seg Neutrophils % Seg Neuts % (Manual) Lymphocytes % (Manual) Monocytes % (Manual) Eosinophils % (Manual) Nucleated RBC % Seg Neutrophils # Seg Neutrophils # Man Lymphocytes # (Manual) Monocytes # (Manual) Eosinophils # (Manual) PT INR APTT POC ABG pH ABG pH POC ABG pCO2 POC ABG pO2 ABG pO2 ABG HCO3 ABG O2 Saturation ABG Base Excess ABG Hemoglobin Oxyhemoglobin Sodium Potassium Chloride Carbon Dioxide BUN 73 H Creatinine 2.4 H Glucose 153 H POC Glucose 123 H 148 H Uric Acid Calcium 8.2 L Phosphorus Magnesium AST 45 H ALT Total Creatine Kinase CK-MB (CK-2) Troponin T NT-Pro-B Natriuret Pep Total Protein 6.0 L Albumin 1.9 L Triglycerides HDL Cholesterol Urine WBC (Auto) Urine Creatinine Urine Total Protein Vancomycin Trough 05/09/19 05/09/19 05/10/19 18:23 23:26 04:52 WBC RBC Hgb Hct MCV MCH MCHC RDW Lymph % (Auto) [place] % (Auto) Eos % (Auto) Lymph # [place] # Eos # Seg Neutrophils % Seg Neuts % (Manual) Lymphocytes % (Manual) Monocytes % (Manual) Eosinophils % (Manual) Nucleated RBC % Seg Neutrophils # Seg Neutrophils # Man Lymphocytes # (Manual) Monocytes # (Manual) Eosinophils # (Manual) PT INR APTT POC ABG pH 7.305 L ABG pH POC ABG pCO2 62.6 H POC ABG pO2 ABG pO2 ABG HCO3 ABG O2 Saturation ABG Base Excess ABG Hemoglobin Oxyhemoglobin Sodium Potassium Chloride Carbon Dioxide BUN Creatinine Glucose POC Glucose 147 H 121 H Uric Acid Calcium Phosphorus Magnesium AST ALT Total Creatine Kinase CK-MB (CK-2) Troponin T NT-Pro-B Natriuret Pep Total Protein Albumin Triglycerides HDL Cholesterol Urine WBC (Auto) Urine Creatinine Urine Total Protein Vancomycin Trough 05/10/19 05/10/19 05/10/19 05:00 05:00 05:50 WBC RBC Hgb 10.3 L Hct 33.7 L MCV MCH 27 L MCHC 31 L RDW 17.0 H Lymph % (Auto) [place] % (Auto) Eos % (Auto) Lymph # [place] # Eos # Seg Neutrophils % Seg Neuts % (Manual) Lymphocytes % (Manual) Monocytes % (Manual) Eosinophils % (Manual) Nucleated RBC % Seg Neutrophils # Seg Neutrophils # Man Lymphocytes # (Manual) Monocytes # (Manual) Eosinophils # (Manual) PT INR APTT POC ABG pH ABG pH POC ABG pCO2 POC ABG pO2 ABG pO2 ABG HCO3 ABG O2 Saturation ABG Base Excess ABG Hemoglobin Oxyhemoglobin Sodium 147 H Potassium Chloride Carbon Dioxide BUN 70 H Creatinine 2.6 H Glucose 155 H POC Glucose 158 H Uric Acid Calcium 8.2 L Phosphorus Magnesium AST ALT Total Creatine Kinase CK-MB (CK-2) Troponin T NT-Pro-B Natriuret Pep Total Protein 6.1 L Albumin 2.5 L Triglycerides HDL Cholesterol Urine WBC (Auto) Urine Creatinine Urine Total Protein Vancomycin Trough 05/10/19 05/11/19 05/11/19 13:14 07:26 11:40 WBC RBC Hgb Hct MCV MCH MCHC RDW Lymph % (Auto) [place] % (Auto) Eos % (Auto) Lymph # [place] # Eos # Seg Neutrophils % Seg Neuts % (Manual) Lymphocytes % (Manual) Monocytes % (Manual) Eosinophils % (Manual) Nucleated RBC % Seg Neutrophils # Seg Neutrophils # Man Lymphocytes # (Manual) Monocytes # (Manual) Eosinophils # (Manual) PT INR APTT POC ABG pH ABG pH POC ABG pCO2 48.0 H POC ABG pO2 58 L ABG pO2 ABG HCO3 ABG O2 Saturation ABG Base Excess ABG Hemoglobin Oxyhemoglobin Sodium 147 H Potassium Chloride 107.2 H Carbon Dioxide BUN 67 H Creatinine 2.6 H Glucose 121 H POC Glucose 159 H Uric Acid Calcium Phosphorus Magnesium AST ALT Total Creatine Kinase CK-MB (CK-2) Troponin T NT-Pro-B Natriuret Pep Total Protein Albumin Triglycerides HDL Cholesterol Urine WBC (Auto) Urine Creatinine Urine Total Protein Vancomycin Trough 05/11/19 05/11/19 05/12/19 18:13 23:46 04:40 WBC RBC Hgb Hct MCV MCH MCHC RDW Lymph % (Auto) [place] % (Auto) Eos % (Auto) Lymph # [place] # Eos # Seg Neutrophils % Seg Neuts % (Manual) Lymphocytes % (Manual) Monocytes % (Manual) Eosinophils % (Manual) Nucleated RBC % Seg Neutrophils # Seg Neutrophils # Man Lymphocytes # (Manual) Monocytes # (Manual) Eosinophils # (Manual) PT INR APTT POC ABG pH ABG pH 7.264 L POC ABG pCO2 POC ABG pO2 ABG pO2 66.8 L ABG HCO3 31.0 H ABG O2 Saturation 92.0 L ABG Base Excess ABG Hemoglobin 10.3 L Oxyhemoglobin 90.1 L Sodium Potassium Chloride Carbon Dioxide BUN Creatinine Glucose POC Glucose 120 H 121 H Uric Acid Calcium Phosphorus Magnesium AST ALT Total Creatine Kinase CK-MB (CK-2) Troponin T NT-Pro-B Natriuret Pep Total Protein Albumin Triglycerides HDL Cholesterol Urine WBC (Auto) Urine Creatinine Urine Total Protein Vancomycin Trough 05/12/19 05/12/19 05/12/19 04:45 04:45 11:14 WBC RBC Hgb 10.2 L Hct 32.4 L MCV MCH MCHC 31 L RDW 17.2 H Lymph % (Auto) [place] % (Auto) Eos % (Auto) Lymph # [place] # Eos # Seg Neutrophils % Seg Neuts % (Manual) Lymphocytes % (Manual) Monocytes % (Manual) Eosinophils % (Manual) Nucleated RBC % Seg Neutrophils # Seg Neutrophils # Man Lymphocytes # (Manual) Monocytes # (Manual) Eosinophils # (Manual) PT INR APTT POC ABG pH 7.284 L ABG pH POC ABG pCO2 67.8 H POC ABG pO2 ABG pO2 ABG HCO3 ABG O2 Saturation ABG Base Excess ABG Hemoglobin Oxyhemoglobin Sodium Potassium Chloride Carbon Dioxide BUN 63 H Creatinine 2.4 H Glucose 110 H POC Glucose Uric Acid Calcium Phosphorus Magnesium AST ALT Total Creatine Kinase CK-MB (CK-2) Troponin T NT-Pro-B Natriuret Pep Total Protein Albumin Triglycerides HDL Cholesterol Urine WBC (Auto) Urine Creatinine Urine Total Protein Vancomycin Trough 05/12/19 05/12/19 05/13/19 11:44 23:11 04:30 WBC RBC Hgb Hct MCV MCH MCHC RDW Lymph % (Auto) [place] % (Auto) Eos % (Auto) Lymph # [place] # Eos # Seg Neutrophils % Seg Neuts % (Manual) Lymphocytes % (Manual) Monocytes % (Manual) Eosinophils % (Manual) Nucleated RBC % Seg Neutrophils # Seg Neutrophils # Man Lymphocytes # (Manual) Monocytes # (Manual) Eosinophils # (Manual) PT INR APTT POC ABG pH ABG pH 7.288 L POC ABG pCO2 POC ABG pO2 ABG pO2 109.7 H ABG HCO3 30.9 H ABG O2 Saturation ABG Base Excess 3.2 H ABG Hemoglobin 9.6 L Oxyhemoglobin Sodium Potassium Chloride Carbon Dioxide BUN Creatinine Glucose POC Glucose 126 H 147 H Uric Acid Calcium Phosphorus Magnesium AST ALT Total Creatine Kinase CK-MB (CK-2) Troponin T NT-Pro-B Natriuret Pep Total Protein Albumin Triglycerides HDL Cholesterol Urine WBC (Auto) Urine Creatinine Urine Total Protein Vancomycin Trough 05/13/19 05/13/19 05/14/19 06:27 11:58 04:00 WBC RBC 3.16 L Hgb 9.3 L Hct 27.9 L MCV MCH MCHC RDW 17.1 H Lymph % (Auto) [place] % (Auto) Eos % (Auto) Lymph # [place] # Eos # Seg Neutrophils % Seg Neuts % (Manual) Lymphocytes % (Manual) Monocytes % (Manual) Eosinophils % (Manual) Nucleated RBC % Seg Neutrophils # Seg Neutrophils # Man Lymphocytes # (Manual) Monocytes # (Manual) Eosinophils # (Manual) PT INR APTT POC ABG pH ABG pH POC ABG pCO2 POC ABG pO2 ABG pO2 ABG HCO3 ABG O2 Saturation ABG Base Excess ABG Hemoglobin Oxyhemoglobin Sodium Potassium Chloride Carbon Dioxide BUN Creatinine Glucose POC Glucose 113 H 130 H Uric Acid Calcium Phosphorus Magnesium AST ALT Total Creatine Kinase CK-MB (CK-2) Troponin T NT-Pro-B Natriuret Pep Total Protein Albumin Triglycerides HDL Cholesterol Urine WBC (Auto) Urine Creatinine Urine Total Protein Vancomycin Trough 05/14/19 05/14/19 05/14/19 04:00 04:34 05:32 WBC RBC Hgb Hct MCV MCH MCHC RDW Lymph % (Auto) [place] % (Auto) Eos % (Auto) Lymph # [place] # Eos # Seg Neutrophils % Seg Neuts % (Manual) Lymphocytes % (Manual) Monocytes % (Manual) Eosinophils % (Manual) Nucleated RBC % Seg Neutrophils # Seg Neutrophils # Man Lymphocytes # (Manual) Monocytes # (Manual) Eosinophils # (Manual) PT INR APTT POC ABG pH 7.328 L ABG pH POC ABG pCO2 61.7 H POC ABG pO2 ABG pO2 ABG HCO3 ABG O2 Saturation ABG Base Excess ABG Hemoglobin Oxyhemoglobin Sodium 135 L D Potassium Chloride Carbon Dioxide BUN 57 H Creatinine 2.2 H Glucose 115 H POC Glucose 115 H Uric Acid Calcium 8.1 L Phosphorus Magnesium AST ALT Total Creatine Kinase CK-MB (CK-2) Troponin T NT-Pro-B Natriuret Pep Total Protein Albumin Triglycerides HDL Cholesterol Urine WBC (Auto) Urine Creatinine Urine Total Protein Vancomycin Trough 05/14/19 05/15/19 05/15/19 12:11 05:10 05:24 WBC RBC Hgb Hct MCV MCH MCHC RDW Lymph % (Auto) [place] % (Auto) Eos % (Auto) Lymph # [place] # Eos # Seg Neutrophils % Seg Neuts % (Manual) Lymphocytes % (Manual) Monocytes % (Manual) Eosinophils % (Manual) Nucleated RBC % Seg Neutrophils # Seg Neutrophils # Man Lymphocytes # (Manual) Monocytes # (Manual) Eosinophils # (Manual) PT INR APTT POC ABG pH ABG pH 7.342 L POC ABG pCO2 POC ABG pO2 ABG pO2 79.1 L ABG HCO3 28.2 H ABG O2 Saturation ABG Base Excess ABG Hemoglobin 7.0 L Oxyhemoglobin 94.4 L Sodium Potassium Chloride Carbon Dioxide BUN Creatinine Glucose POC Glucose 110 H 116 H Uric Acid Calcium Phosphorus Magnesium AST ALT Total Creatine Kinase CK-MB (CK-2) Troponin T NT-Pro-B Natriuret Pep Total Protein Albumin Triglycerides HDL Cholesterol Urine WBC (Auto) Urine Creatinine Urine Total Protein Vancomycin Trough 05/15/19 05/15/19 05/16/19 09:00 18:12 04:50 WBC RBC Hgb Hct MCV MCH MCHC RDW Lymph % (Auto) [place] % (Auto) Eos % (Auto) Lymph # [place] # Eos # Seg Neutrophils % Seg Neuts % (Manual) Lymphocytes % (Manual) Monocytes % (Manual) Eosinophils % (Manual) Nucleated RBC % Seg Neutrophils # Seg Neutrophils # Man Lymphocytes # (Manual) Monocytes # (Manual) Eosinophils # (Manual) PT INR APTT POC ABG pH ABG pH 7.250 L POC ABG pCO2 POC ABG pO2 ABG pO2 76.4 L ABG HCO3 ABG O2 Saturation 94.6 L ABG Base Excess -3.1 L ABG Hemoglobin 9.7 L Oxyhemoglobin 92.4 L Sodium Potassium Chloride Carbon Dioxide BUN Creatinine Glucose POC Glucose 110 H Uric Acid Calcium Phosphorus Magnesium AST ALT Total Creatine Kinase CK-MB (CK-2) Troponin T NT-Pro-B Natriuret Pep Total Protein Albumin Triglycerides HDL Cholesterol Urine WBC (Auto) Urine Creatinine Urine Total Protein Vancomycin Trough 20.5 H 05/16/19 05/16/19 05/17/19 05:50 05:50 04:20 WBC RBC 3.36 L 3.44 L Hgb 9.4 L 9.3 L Hct 29.1 L 29.7 L MCV MCH 27 L MCHC 31 L RDW 17.6 H 17.6 H Lymph % (Auto) [place] % (Auto) Eos % (Auto) Lymph # [place] # Eos # Seg Neutrophils % Seg Neuts % (Manual) 77.0 H Lymphocytes % (Manual) 5.0 L Monocytes % (Manual) Eosinophils % (Manual) 10.0 H Nucleated RBC % Seg Neutrophils # Seg Neutrophils # Man Lymphocytes # (Manual) 0.5 L Monocytes # (Manual) Eosinophils # (Manual) 0.9 H PT INR APTT POC ABG pH ABG pH POC ABG pCO2 POC ABG pO2 ABG pO2 ABG HCO3 ABG O2 Saturation ABG Base Excess ABG Hemoglobin Oxyhemoglobin Sodium Potassium Chloride Carbon Dioxide BUN 83 H Creatinine 4.4 H D Glucose 118 H POC Glucose Uric Acid Calcium Phosphorus Magnesium AST ALT Total Creatine Kinase CK-MB (CK-2) Troponin T NT-Pro-B Natriuret Pep Total Protein Albumin Triglycerides HDL Cholesterol Urine WBC (Auto) Urine Creatinine Urine Total Protein Vancomycin Trough 05/17/19 05/17/19 05/18/19 04:30 Unknown 01:50 WBC RBC 3.49 L Hgb 9.4 L Hct 30.0 L MCV MCH 27 L MCHC 31 L RDW 17.8 H Lymph % (Auto) 7.9 L [place] % (Auto) 15.4 H Eos % (Auto) 6.3 H Lymph # 0.7 L [place] # 1.4 H Eos # 0.6 H Seg Neutrophils % 70.2 H Seg Neuts % (Manual) Lymphocytes % (Manual) Monocytes % (Manual) Eosinophils % (Manual) Nucleated RBC % Seg Neutrophils # Seg Neutrophils # Man Lymphocytes # (Manual) Monocytes # (Manual) Eosinophils # (Manual) PT INR APTT POC ABG pH ABG pH 7.272 L POC ABG pCO2 POC ABG pO2 ABG pO2 75.7 L ABG HCO3 ABG O2 Saturation 93.8 L ABG Base Excess -3.0 L ABG Hemoglobin 7.8 L Oxyhemoglobin 91.6 L Sodium Potassium 5.2 H Chloride Carbon Dioxide BUN 96 H Creatinine 5.7 H Glucose 112 H POC Glucose Uric Acid Calcium Phosphorus Magnesium AST ALT Total Creatine Kinase CK-MB (CK-2) Troponin T NT-Pro-B Natriuret Pep Total Protein Albumin Triglycerides 173 H HDL Cholesterol Urine WBC (Auto) Urine Creatinine Urine Total Protein Vancomycin Trough 05/18/19 05/18/19 05/18/19 01:50 04:41 05:24 WBC RBC Hgb Hct MCV MCH MCHC RDW Lymph % (Auto) [place] % (Auto) Eos % (Auto) Lymph # [place] # Eos # Seg Neutrophils % Seg Neuts % (Manual) Lymphocytes % (Manual) Monocytes % (Manual) Eosinophils % (Manual) Nucleated RBC % Seg Neutrophils # Seg Neutrophils # Man Lymphocytes # (Manual) Monocytes # (Manual) Eosinophils # (Manual) PT INR APTT POC ABG pH 7.260 L ABG pH POC ABG pCO2 54.9 H POC ABG pO2 ABG pO2 ABG HCO3 ABG O2 Saturation ABG Base Excess ABG Hemoglobin Oxyhemoglobin Sodium Potassium 5.6 H Chloride Carbon Dioxide BUN 104 H Creatinine 6.6 H Glucose 107 H POC Glucose 106 H Uric Acid Calcium Phosphorus Magnesium AST ALT Total Creatine Kinase CK-MB (CK-2) Troponin T NT-Pro-B Natriuret Pep Total Protein Albumin Triglycerides HDL Cholesterol Urine WBC (Auto) Urine Creatinine Urine Total Protein Vancomycin Trough 05/18/19 05/18/19 05/19/19 11:34 23:26 04:06 WBC RBC 3.22 L Hgb 8.8 L Hct 27.3 L MCV MCH 27 L MCHC RDW 17.5 H Lymph % (Auto) [place] % (Auto) Eos % (Auto) Lymph # [place] # Eos # Seg Neutrophils % Seg Neuts % (Manual) 74.0 H Lymphocytes % (Manual) 4.0 L Monocytes % (Manual) 11.0 H Eosinophils % (Manual) 7.0 H Nucleated RBC % 1.0 H Seg Neutrophils # Seg Neutrophils # Man Lymphocytes # (Manual) 0.3 L Monocytes # (Manual) 0.9 H Eosinophils # (Manual) 0.6 H PT INR APTT POC ABG pH ABG pH POC ABG pCO2 POC ABG pO2 ABG pO2 ABG HCO3 ABG O2 Saturation ABG Base Excess ABG Hemoglobin Oxyhemoglobin Sodium Potassium Chloride Carbon Dioxide BUN Creatinine Glucose POC Glucose 152 H 112 H Uric Acid Calcium Phosphorus Magnesium AST ALT Total Creatine Kinase CK-MB (CK-2) Troponin T NT-Pro-B Natriuret Pep Total Protein Albumin Triglycerides HDL Cholesterol Urine WBC (Auto) Urine Creatinine Urine Total Protein Vancomycin Trough 05/19/19 05/19/19 05/20/19 04:06 06:00 04:00 WBC RBC 3.40 L Hgb 9.2 L Hct 28.6 L MCV MCH 27 L MCHC RDW 17.6 H Lymph % (Auto) [place] % (Auto) Eos % (Auto) Lymph # [place] # Eos # Seg Neutrophils % Seg Neuts % (Manual) Lymphocytes % (Manual) 11.0 L Monocytes % (Manual) Eosinophils % (Manual) 14.0 H Nucleated RBC % Seg Neutrophils # Seg Neutrophils # Man Lymphocytes # (Manual) 1.1 L Monocytes # (Manual) Eosinophils # (Manual) 1.4 H PT INR APTT POC ABG pH ABG pH 7.315 L POC ABG pCO2 POC ABG pO2 ABG pO2 ABG HCO3 ABG O2 Saturation ABG Base Excess ABG Hemoglobin 6.7 L Oxyhemoglobin 94.1 L Sodium Potassium 5.2 H Chloride Carbon Dioxide 21 L BUN 110 H Creatinine 7.2 H Glucose POC Glucose Uric Acid Calcium 8.3 L Phosphorus Magnesium AST ALT Total Creatine Kinase CK-MB (CK-2) Troponin T NT-Pro-B Natriuret Pep Total Protein Albumin Triglycerides HDL Cholesterol Urine WBC (Auto) Urine Creatinine Urine Total Protein Vancomycin Trough 05/20/19 05/20/19 05/20/19 04:00 05:48 12:00 WBC RBC Hgb Hct MCV MCH MCHC RDW Lymph % (Auto) [place] % (Auto) Eos % (Auto) Lymph # [place] # Eos # Seg Neutrophils % Seg Neuts % (Manual) Lymphocytes % (Manual) Monocytes % (Manual) Eosinophils % (Manual) Nucleated RBC % Seg Neutrophils # Seg Neutrophils # Man Lymphocytes # (Manual) Monocytes # (Manual) Eosinophils # (Manual) PT INR APTT POC ABG pH ABG pH 7.281 L POC ABG pCO2 POC ABG pO2 ABG pO2 78.7 L ABG HCO3 ABG O2 Saturation 94.5 L ABG Base Excess -3.0 L ABG Hemoglobin 9.9 L Oxyhemoglobin 92.5 L Sodium 136 L Potassium 5.7 H Chloride 96.3 L Carbon Dioxide BUN 125 H Creatinine 8.3 H Glucose 106 H POC Glucose Uric Acid Calcium Phosphorus Magnesium AST ALT Total Creatine Kinase CK-MB (CK-2) Troponin T NT-Pro-B Natriuret Pep Total Protein Albumin Triglycerides HDL Cholesterol Urine WBC (Auto) 26.0 H Urine Creatinine Urine Total Protein Vancomycin Trough 05/21/19 05/21/19 05/21/19 04:33 05:20 Unknown WBC RBC 3.38 L Hgb 9.1 L Hct 28.5 L MCV MCH 27 L MCHC RDW 17.4 H Lymph % (Auto) [place] % (Auto) Eos % (Auto) Lymph # [place] # Eos # Seg Neutrophils % Seg Neuts % (Manual) 71.0 H Lymphocytes % (Manual) 1.0 L Monocytes % (Manual) 11.0 H Eosinophils % (Manual) 6.0 H Nucleated RBC % Seg Neutrophils # Seg Neutrophils # Man Lymphocytes # (Manual) 0.1 L Monocytes # (Manual) 1.0 H Eosinophils # (Manual) 0.6 H PT INR APTT POC ABG pH 7.315 L ABG pH POC ABG pCO2 57.8 H POC ABG pO2 68 L ABG pO2 ABG HCO3 ABG O2 Saturation ABG Base Excess ABG Hemoglobin Oxyhemoglobin Sodium Potassium Chloride 96.3 L Carbon Dioxide BUN 102 H Creatinine 7.0 H Glucose 103 H POC Glucose Uric Acid Calcium Phosphorus Magnesium AST ALT Total Creatine Kinase CK-MB (CK-2) Troponin T NT-Pro-B Natriuret Pep Total Protein Albumin Triglycerides HDL Cholesterol Urine WBC (Auto) Urine Creatinine Urine Total Protein Vancomycin Trough 05/22/19 05/22/19 05/22/19 03:54 06:25 06:25 WBC RBC 3.22 L Hgb 8.6 L Hct 27.0 L MCV MCH 27 L MCHC RDW 17.5 H Lymph % (Auto) [place] % (Auto) 16.2 H Eos % (Auto) 10.8 H Lymph # [place] # 1.3 H Eos # 0.9 H Seg Neutrophils % Seg Neuts % (Manual) Lymphocytes % (Manual) 10.0 L Monocytes % (Manual) 13.0 H Eosinophils % (Manual) 8.0 H Nucleated RBC % Seg Neutrophils # Seg Neutrophils # Man Lymphocytes # (Manual) 0.9 L Monocytes # (Manual) 1.1 H Eosinophils # (Manual) 0.7 H PT INR APTT POC ABG pH 7.313 L ABG pH POC ABG pCO2 55.0 H POC ABG pO2 ABG pO2 ABG HCO3 ABG O2 Saturation ABG Base Excess ABG Hemoglobin Oxyhemoglobin Sodium 135 L Potassium Chloride 94.3 L Carbon Dioxide BUN 117 H Creatinine 7.8 H Glucose POC Glucose Uric Acid Calcium 8.2 L Phosphorus Magnesium AST ALT Total Creatine Kinase CK-MB (CK-2) Troponin T NT-Pro-B Natriuret Pep Total Protein Albumin Triglycerides HDL Cholesterol Urine WBC (Auto) Urine Creatinine Urine Total Protein Vancomycin Trough 05/23/19 05/24/19 05/24/19 05:21 05:00 05:00 WBC RBC 3.18 L Hgb 8.5 L Hct 26.7 L MCV MCH 27 L MCHC RDW 17.9 H Lymph % (Auto) [place] % (Auto) Eos % (Auto) Lymph # [place] # Eos # Seg Neutrophils % Seg Neuts % (Manual) Lymphocytes % (Manual) Monocytes % (Manual) Eosinophils % (Manual) Nucleated RBC % Seg Neutrophils # Seg Neutrophils # Man Lymphocytes # (Manual) Monocytes # (Manual) Eosinophils # (Manual) PT INR APTT POC ABG pH ABG pH POC ABG pCO2 49.7 H POC ABG pO2 73 L ABG pO2 ABG HCO3 ABG O2 Saturation ABG Base Excess ABG Hemoglobin Oxyhemoglobin Sodium Potassium Chloride 95.7 L Carbon Dioxide BUN 97 H Creatinine 6.5 H Glucose POC Glucose Uric Acid Calcium 8.0 L Phosphorus Magnesium AST ALT Total Creatine Kinase CK-MB (CK-2) Troponin T NT-Pro-B Natriuret Pep Total Protein Albumin Triglycerides HDL Cholesterol Urine WBC (Auto) Urine Creatinine Urine Total Protein Vancomycin Trough 05/24/19 05/25/19 05/25/19 06:17 04:22 15:45 WBC RBC 2.98 L Hgb 8.1 L Hct 24.9 L MCV MCH 27 L MCHC RDW 17.8 H Lymph % (Auto) [place] % (Auto) Eos % (Auto) Lymph # [place] # Eos # Seg Neutrophils % Seg Neuts % (Manual) Lymphocytes % (Manual) Monocytes % (Manual) Eosinophils % (Manual) Nucleated RBC % Seg Neutrophils # Seg Neutrophils # Man Lymphocytes # (Manual) Monocytes # (Manual) Eosinophils # (Manual) PT INR APTT POC ABG pH 7.330 L 7.313 L ABG pH POC ABG pCO2 52.5 H 51.1 H POC ABG pO2 77 L ABG pO2 ABG HCO3 ABG O2 Saturation ABG Base Excess ABG Hemoglobin Oxyhemoglobin Sodium Potassium Chloride Carbon Dioxide BUN Creatinine Glucose POC Glucose Uric Acid Calcium Phosphorus Magnesium AST ALT Total Creatine Kinase CK-MB (CK-2) Troponin T NT-Pro-B Natriuret Pep Total Protein Albumin Triglycerides HDL Cholesterol Urine WBC (Auto) Urine Creatinine Urine Total Protein Vancomycin Trough 05/25/19 05/26/19 05/26/19 15:45 04:13 05:00 WBC RBC 3.10 L Hgb 8.4 L Hct 26.0 L MCV MCH 27 L MCHC RDW 17.4 H Lymph % (Auto) [place] % (Auto) Eos % (Auto) Lymph # [place] # Eos # Seg Neutrophils % Seg Neuts % (Manual) Lymphocytes % (Manual) Monocytes % (Manual) Eosinophils % (Manual) Nucleated RBC % Seg Neutrophils # Seg Neutrophils # Man Lymphocytes # (Manual) Monocytes # (Manual) Eosinophils # (Manual) PT INR APTT POC ABG pH 7.295 L ABG pH POC ABG pCO2 56.5 H POC ABG pO2 63 L ABG pO2 ABG HCO3 ABG O2 Saturation ABG Base Excess ABG Hemoglobin Oxyhemoglobin Sodium 136 L Potassium Chloride 96.8 L Carbon Dioxide BUN 83 H Creatinine 5.9 H Glucose POC Glucose Uric Acid Calcium 7.6 L Phosphorus Magnesium AST ALT Total Creatine Kinase CK-MB (CK-2) Troponin T NT-Pro-B Natriuret Pep Total Protein Albumin Triglycerides HDL Cholesterol Urine WBC (Auto) Urine Creatinine Urine Total Protein Vancomycin Trough 05/26/19 05/27/19 05/28/19 05:00 04:48 04:47 WBC RBC Hgb Hct MCV MCH MCHC RDW Lymph % (Auto) [place] % (Auto) Eos % (Auto) Lymph # [place] # Eos # Seg Neutrophils % Seg Neuts % (Manual) Lymphocytes % (Manual) Monocytes % (Manual) Eosinophils % (Manual) Nucleated RBC % Seg Neutrophils # Seg Neutrophils # Man Lymphocytes # (Manual) Monocytes # (Manual) Eosinophils # (Manual) PT INR APTT POC ABG pH 7.323 L ABG pH 7.284 L POC ABG pCO2 56.2 H POC ABG pO2 ABG pO2 71.6 L ABG HCO3 ABG O2 Saturation 92.0 L ABG Base Excess ABG Hemoglobin 7.7 L Oxyhemoglobin 89.9 L Sodium 136 L Potassium Chloride 95.3 L Carbon Dioxide BUN 96 H Creatinine 6.5 H Glucose 108 H POC Glucose Uric Acid Calcium 7.6 L Phosphorus Magnesium AST ALT Total Creatine Kinase CK-MB (CK-2) Troponin T NT-Pro-B Natriuret Pep Total Protein Albumin Triglycerides HDL Cholesterol Urine WBC (Auto) Urine Creatinine Urine Total Protein Vancomycin Trough 05/28/19 05/29/19 05/29/19 12:30 12:47 23:44 WBC RBC Hgb Hct MCV MCH MCHC RDW Lymph % (Auto) [place] % (Auto) Eos % (Auto) Lymph # [place] # Eos # Seg Neutrophils % Seg Neuts % (Manual) Lymphocytes % (Manual) Monocytes % (Manual) Eosinophils % (Manual) Nucleated RBC % Seg Neutrophils # Seg Neutrophils # Man Lymphocytes # (Manual) Monocytes # (Manual) Eosinophils # (Manual) PT INR APTT POC ABG pH ABG pH POC ABG pCO2 POC ABG pO2 ABG pO2 ABG HCO3 ABG O2 Saturation ABG Base Excess ABG Hemoglobin Oxyhemoglobin Sodium 135 L Potassium Chloride 95.3 L Carbon Dioxide BUN 82 H Creatinine 6.0 H Glucose POC Glucose 136 H 159 H Uric Acid Calcium 7.5 L Phosphorus Magnesium AST ALT Total Creatine Kinase CK-MB (CK-2) Troponin T NT-Pro-B Natriuret Pep Total Protein Albumin Triglycerides HDL Cholesterol Urine WBC (Auto) Urine Creatinine Urine Total Protein Vancomycin Trough 05/30/19 05/30/19 04:30 05:38 WBC RBC 3.01 L Hgb 8.2 L Hct 25.3 L MCV MCH 27 L MCHC RDW 17.5 H Lymph % (Auto) [place] % (Auto) Eos % (Auto) Lymph # [place] # Eos # Seg Neutrophils % Seg Neuts % (Manual) 80.0 H Lymphocytes % (Manual) 10.0 L Monocytes % (Manual) Eosinophils % (Manual) Nucleated RBC % Seg Neutrophils # Seg Neutrophils # Man 8.0 H Lymphocytes # (Manual) 1.0 L Monocytes # (Manual) Eosinophils # (Manual) PT INR APTT POC ABG pH ABG pH POC ABG pCO2 POC ABG pO2 73 L ABG pO2 ABG HCO3 ABG O2 Saturation ABG Base Excess ABG Hemoglobin Oxyhemoglobin Sodium Potassium Chloride Carbon Dioxide BUN Creatinine Glucose POC Glucose Uric Acid Calcium Phosphorus Magnesium AST ALT Total Creatine Kinase CK-MB (CK-2) Troponin T NT-Pro-B Natriuret Pep Total Protein Albumin Triglycerides HDL Cholesterol Urine WBC (Auto) Urine Creatinine Urine Total Protein Vancomycin Trough
[2019-05-30] MEDS: ACETAMINOPHEN 325 MG TAB PO SCH ×3 (12:44→20:00)
--- NOTE | 2019-05-30 13:41 | Progress Note ---
Assessment and Plan # Acute kidney injury on HD: creatinine has worsened, potentially from vancomycin toxicity, now HD dependent. Initially with suspected tubular injury in setting of sepsis, respiratory failure, hypotension. - plan to continue HD // or prn; no indication for HD today - can coordinate line holiday if needed given recurrent fevers - continue to assess for renal recovery - continue supportive measures, appreciate pulm and ID input - avoid nephrotoxins - appreciate vascular assistance with vas-cath placement - daily labs # HTN: BP reasonable, continue current management # Anemia: hemoglobin 8.2, pRBC transfusion prn. Continue ESAs with HD # Encephalopathy, seizure disorder, hypoxic respiratory failure, fevers: ID and pulm following We'll continue to follow and make recommendation from renal standpoint for this critically ill patient; we appreciate the opportunity to assist in his care. Subjective Date of service: 05/30/19 Principal diagnosis: HF; acute hypoxemic resp failure, SIRS, CARLA Interval history: No acute events noted. Remains intubated and sedated. Had HD yesterday. Objective - Exam Narrative Exam: General: No acute distress/ intubated and sedated HEENT: ET tube in place Neck: Supple Chest:coarse mechanical breath sounds, PRVC with FiO2 40% Heart: Regular rate and rhythm Abdomen: Soft nontender Extremity: no edema Psych: sedated Derm: No petechial rash - Vital Signs Vital signs: Vital Signs - 12hr 05/30/19 05/30/19 05/30/19 02:00 02:30 03:00 Temperature Pulse Rate 105 H 101 H 105 H Pulse Rate [ From Monitor] Respiratory 29 H 27 H 28 H Rate Blood Pressure 153/77 148/72 156/77 O2 Sat by Pulse 92 93 92 Oximetry 05/30/19 05/30/19 05/30/19 03:26 03:30 04:00 Temperature 103.1 F H Pulse Rate 106 H 104 H Pulse Rate [ 104 H From Monitor] Respiratory 30 H 21 Rate Blood Pressure 144/74 145/71 O2 Sat by Pulse 93 93 Oximetry 05/30/19 05/30/19 05/30/19 04:30 04:31 05:00 Temperature Pulse Rate 105 H 110 H 101 H Pulse Rate [ From Monitor] Respiratory 27 H Rate Blood Pressure 153/68 161/102 135/57 O2 Sat by Pulse 95 87 94 Oximetry 05/30/19 05/30/1905/30/20 05:30 06:00 06:30 Temperature Pulse Rate 100 H 114 H 103 H Pulse Rate [ From Monitor] Respiratory 25 H 29 H 26 H Rate Blood Pressure 144/60 152/72 147/77 O2 Sat by Pulse 93 94 92 Oximetry 05/30/19 05/30/19 05/30/19 07:00 07:30 08:00 Temperature Pulse Rate 111 H 111 H 105 H Pulse Rate [ 112 H From Monitor] Respiratory 48 H 33 H 32 H Rate Blood Pressure 148/74 150/76 143/62 O2 Sat by Pulse 93 92 95 Oximetry 05/30/19 05/30/19 05/30/19 08:30 09:00 09:19 Temperature Pulse Rate 97 H 93 H 102 H Pulse Rate [ From Monitor] Respiratory 26 H 25 H Rate Blood Pressure 138/67 135/69 137/73 O2 Sat by Pulse 94 94 96 Oximetry 05/30/19 05/30/19 05/30/19 09:30 10:00 10:30 Temperature Pulse Rate 100 H 89 96 H Pulse Rate [ From Monitor] Respiratory 29 H 17 25 H Rate Blood Pressure 142/84 143/78 147/80 O2 Sat by Pulse 93 94 94 Oximetry 05/30/19 05/30/19 05/30/19 11:00 12:00 12:44 Temperature Pulse Rate 86 81 Pulse Rate [ 91 H From Monitor] Respiratory 25 H 25 H 25 H Rate Blood Pressure 147/74 174/75 O2 Sat by Pulse 95 96 Oximetry - Lab 05/30/19 05:38 05/28/19 12:30 Most recent lab results ABG pH 7.284 pH Units (7.350-7.450) L 05/27/19 04:48 ABG pCO2 53.7 mm Hg 05/27/19 04:48 ABG pO2 71.6 mm Hg (80.0-90.0) L 05/27/19 04:48 ABG HCO3 24.9 mmol/L (20.0-26.0) 05/27/19 04:48 ABG O2 Saturation 92.0 % (95.0-99.0) L 05/27/19 04:48 Calcium 7.5 mg/dL (8.4-10.2) L 05/28/19 12:30 Phosphorus 4.90 mg/dL (2.5-4.5) H 05/02/19 00:06 Magnesium 2.30 mg/dL (1.7-2.3) 05/02/19 00:06 Urine Creatinine 292.8 mg/dL (0.1-20.0) H 05/07/19 22:40 Urine Sodium 11 mmol/L 05/07/19 22:40 Urine Total Protein 269 mg/dL (5-11.8) H 05/07/19 22:40 Medications & Allergies - Medications Allergies/Adverse Reactions: Allergies No Known Allergies Allergy (Verified 05/01/19 20:27) Home Medications: Home Medications Medication Instructions Recorded Confirmed Last Taken Type No Known Home Medications [No 05/03/19 05/03/19 Unknown History Reported Home Medications] Active Medications: Generic Name Dose Route Start Last Admin Trade Name Freq PRN Reason Stop Dose Admin Acetaminophen 650 mg 05/30/19 12:00 05/30/19 12:44 Tylenol PO 05/31/19 18:00 650 mg Q4H VCIKEY Administration Albumin Human 25 gm 05/19/19 10:47 Alburx 25% (Albumin) IV ARIANE PRN Hypotension Alteplase, Recombinant 2 mg 05/25/19 09:30 05/28/19 21:15 Cathflo IV 2 mg ARIANE PRN Administration LINE FLUSH Lipase/Protease/Amylase 1 each 05/14/19 15:01 Pancreaze 10,500 Unit FEEDTUBE PRN PRN For Clogged Feeding Tube Dextrose 50 gm 05/01/19 20:24 D50w (25gm) Vial IV Q30MIN PRN Hypoglycemia Protocol Enoxaparin Sodium 30 mg 05/16/19 10:00 05/30/19 10:10 Enoxaparin SUB-Q 30 mg QDAY VICKEY Administration Epoetin Hugo 10,000 unit 05/19/19 10:47 05/29/19 12:53 Procrit IV 10,000 unit ARIANE PRN Administration hemodialysis Famotidine 20 mg 05/16/19 10:00 05/30/19 10:10 Pepcid PO 20 mg DAILY VICKEY Administration Hydralazine HCl 20 mg 05/13/19 08:09 05/14/19 18:09 Apresoline IV 20 mg Q4HR PRN Administration SBP >/=160 Hydrophilic Ointment 1 applic 05/01/19 21:14 Vaseline Lip Therapy TP Q2HR PRN Dry Lips Fentanyl Citrate 2,000 mcg in 100 mls @ 10.195 mls/hr 05/01/19 22:00 05/30/19 04:59 Fentanyl Drip Premix IV 1 mcg/kg/hr TITR VICKEY 10.195 mls/hr Administration Protocol 1 MCG/KG/HR Propofol 1,000 mg in 100 mls @ 7.011 mls/hr 05/03/19 04:00 05/30/19 12:00 Diprivan 10 Mg/Ml IV 0 mcg/kg/min TITR VICKEY 0 mls/hr Titration Protocol 5 MCG/KG/MIN Norepinephrine 4 mg in 250 mls @ 7.5 mls/hr 05/03/19 18:00 05/20/19 08:04 Levophed Drip 4 Mg/Ns 250 Ml IV 0 mcg/min TITR VICKEY 0 mls/hr Titration Protocol 2 MCG/MIN Sodium Chloride 500 mls @ 10 mls/hr 05/06/19 15:00 Nacl 0.9% 500 Ml IV DIRECT VICKEY Nicardipine HCl 50 mg/ Sodium 250 mls @ 25 mls/hr 05/13/19 10:00 05/14/19 23:12 Chloride IV 0 mg/hr TITR VICKEY 0 mls/hr Titration Protocol 5 MG/HR Sodium Chloride 100 mls @ 999 mls/hr 05/19/19 10:47 05/20/19 08:14 Nacl 0.9% IV 999 mls/hr ARIANE PRN Administration Hypotension Labetalol HCl 100 mg 05/14/19 14:00 05/30/19 10:11 Labetalol PO Not Given Q8HR [facility] Levetiracetam 750 mg 05/13/19 10:00 05/30/19 10:09 Keppra PO 750 mg BID VICKEY Administration Lorazepam 2 mg 05/06/19 06:22 05/10/19 16:17 Ativan IV 2 mg Q4H PRN Administration Seizures/AGITATION Methylprednisolone Sodium Succinate 125 mg 05/29/19 14:00 05/30/19 10:11 Solu-Medrol IV Not Given Q8HR [facility] Multi-Ingred Cream/Lotion/Oil/Oint 1 applic 05/01/19 21:14 Artificial Tears Ophth Oint OU Q4HR PRN Dry Eye(s) Ondansetron HCl 4 mg 05/01/19 22:46 Zofran IV Q8H PRN Nausea And Vomiting Scopolamine 1 each 05/20/19 12:00 05/20/19 12:52 Transderm-Scop TD 1 each Q72HR VICKEY Administration Simple Syrup 15 ml 05/14/19 15:01 Simple Syrup FEEDTUBE PRN PRN Hypoglycemia Simple Syrup 30 ml 05/14/19 15:01 Simple Syrup FEEDTUBE PRN PRN Hypoglycemia Sodium Bicarbonate 325 mg 05/14/19 15:01 Sodium Bicarbonate FEEDTUBE PRN PRN For Clogged Feeding Tube Sodium Chloride 10 ml 05/02/19 10:00 05/30/19 11:05 Sodium Chloride Flush Syringe 10 Ml IV Not Given BID VICKEY Sodium Chloride 10 ml 05/01/19 22:46 05/05/19 02:28 Sodium Chloride Flush Syringe 10 Ml IV 10 ml PRN PRN Administration LINE FLUSH
--- NOTE | 2019-05-30 15:41 | Progress Note ---
Assessment and Plan Assessment and plan: Patient is a 34-year-old man who is morbidly obese (575 lbs) with unknown medical history who presented to [facility] ED on 05/01/2019 (I started seeing patient for the first time on 05/20/19, Day 19) with SOB. He was placed on BIPAP and failed. He had a cardiac arrest in ED and was Intubated in ED. On 05/12/19- ETT exchanged due to hypoxia. In the chart there is a report that he has undiagnosis LANDON and using someone else CPAP. I spoke with his mother Magalis Jay on Saturday May 25, 2019 at [phone], her answered the phone but he is not James' father. She came to the phone. She appeared to be crying, she says she has the FLU but no other family has visit to my knowledge. On 05/27/2018, he bite down on ruptured ETT tube which was replaced. Patient remains intubated on very high PEEP which is preventing Tracheostomy. Tmax since 05/27/2019 has been 100.3F. 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 Acute hypoxic and hypercapenic respiratory failure on vent >96hrs Status post intubation, continue sedation, consulted pulmonary And input noted still on high PEEP, making Tracheostomy difficult to attempt. Yoga Coordinator managing RUE PICC right IJ vasc catheter placed on off levaphed since , 05/20/2019 drool, with increased secretion, scopolamine patch applied Bladder scan <100 Right neck IJ vas Catheter dsg changed ?trach consideration, intubated since admission 05/01/19==>still too high PEEP for trach, ?PEG consideration Obesity Hypoventilation syndrome Patient previously on LANDON Management at home but per discussion with family, was non complaint Sepsis- not present on admission -On abx, ID following. LP when able ?Meningitis considering recurrent fever. Doubt, but ID following Acylovir stopped Monitoring Temperature, ID following size prohibits leon CT scanner ?Seizure activity during hospital coarse, none since i have been following since 05/20/19 -Meninigitis prophy done, ID following -Neurology consult -EEG-negative Acute CHF, new onset, diastolic treated with IV lasix now held, on HD now monitor I/O, daily weights Cardiology following. Added beta-jenny, no TIM inhibitor secondary to renal insufficiency Hypertension malignant Start antihypertensive, monitor blood pressure IV hydralazine as needed for further control Acute kidney injury due to ATN ?Vancomycin toxicity, Held. Monitor Nephrology following and input noted. Berkowitz for strict I/Os HD per nephrology Hyperkalemia-Kaylexate given Monitor bmp Passive congestive hepatic syndrome -LFT elevated but trending down -Noted Gallbladder sludge DVT prophylaxis with Lovenox Extreme obesity, bmi 70.1 Full code status. Prognosis guarded History Interval history: Patient was seen and examined. Follow-up on current diagnosis of Respiratory failure. Overnight uneventful. Imaging, nursing note, chart, labs and old chart reviewed. Still intubated and sedated. Hospitalist Physical - Physical exam Narrative exam: Gen: critically ill, bmi 70.1 sedated HEENT: NCAT, OP ETT in place Neck: supple, no adenopathy, no thyromegaly, no JVD CVS/Heart: tachycardiac, normal S1S2, pulses present bilaterally Chest/Lungs: tachypneic, Symmetrical chest expansion, good air entry bilaterally GI/Abdomen: soft, NTND, good bowel sounds, no guarding or rebound : scrotal edema, unable to see his penis Extermity/Skin: good skin turgor MSK: sedated Neuro: sedated Psych: sedated - Constitutional Vitals: Temp Pulse Resp BP Pulse Ox 101 F H 78 25 H 142/72 96 05/30/19 12:00 05/30/19 13:51 05/30/19 12:44 05/30/19 13:51 05/30/19 12:00 General appearance: Present: no acute distress Results - Labs CBC & Chem 7: 01/05/20 05:38 05/28/19 12:30 Labs: Laboratory Last Values WBC 10.0 K/mm3 (4.5-11.0) 05/30/19 05:38 RBC 3.01 M/mm3 (3.65-5.03) L 05/30/19 05:38 Hgb 8.2 gm/dl (11.8-15.2) L 05/30/19 05:38 Hct 25.3 % (35.5-45.6) L 05/30/19 05:38 MCV 84 fl (84-94) 05/30/19 05:38 MCH 27 pg (28-32) L 05/30/19 05:38 MCHC 33 % (32-34) 05/30/19 05:38 RDW 17.5 % (13.2-15.2) H 05/30/19 05:38 Plt Count 219 K/mm3 (140-440) 05/30/19 05:38 Lymph % (Auto) 7.9 % (13.4-35.0) L 05/18/19 01:50 Castro % (Auto) 16.2 % (0.0-7.3) H 05/22/19 06:25 Eos % (Auto) 10.8 % (0.0-4.3) H 05/22/19 06:25 Baso % (Auto) 0.2 % (0.0-1.8) 05/18/19 01:50 Lymph # 0.7 K/mm3 (1.2-5.4) L 05/18/19 01:50 Castro # 1.3 K/mm3 (0.0-0.8) H 05/22/19 06:25 Eos # 0.9 K/mm3 (0.0-0.4) H 05/22/19 06:25 Baso # 0.0 K/mm3 (0.0-0.1) 05/22/19 06:25 Add Manual Diff Complete 05/30/19 05:38 Total Counted 100 05/30/19 05:38 Seg Neutrophils % 65.5 % (40.0-70.0) 05/22/19 06:25 Seg Neuts % (Manual) 80.0 % (40.0-70.0) H 05/30/19 05:38 Band Neutrophils % 1.0 % 05/30/19 05:38 Lymphocytes % (Manual) 10.0 % (13.4-35.0) L 05/30/19 05:38 Reactive Lymphs % (Man) 0 % 05/30/19 05:38 Monocytes % (Manual) 4.0 % (0.0-7.3) 05/30/19 05:38 Eosinophils % (Manual) 1.0 % (0.0-4.3) 05/30/19 05:38 Basophils % (Manual) 0 % (0.0-1.8) 05/30/19 05:38 Metamyelocytes % 4.0 % 05/30/19 05:38 Myelocytes % 0 % 05/30/19 05:38 Promyelocytes % 0 % 05/30/19 05:38 Blast Cells % 0 % 05/30/19 05:38 Nucleated RBC % Not Reportable 05/30/19 05:38 Seg Neutrophils # 5.3 K/mm3 (1.8-7.7) 05/22/19 06:25 Seg Neutrophils # Man 8.0 K/mm3 (1.8-7.7) H 05/30/19 05:38 Band Neutrophils # 0.1 K/mm3 05/30/19 05:38 Lymphocytes # (Manual) 1.0 K/mm3 (1.2-5.4) L 05/30/19 05:38 Abs React Lymphs (Man) 0.0 K/mm3 05/30/19 05:38 Monocytes # (Manual) 0.4 K/mm3 (0.0-0.8) 05/30/19 05:38 Eosinophils # (Manual) 0.1 K/mm3 (0.0-0.4) 05/30/19 05:38 Basophils # (Manual) 0.0 K/mm3 (0.0-0.1) 05/30/19 05:38 Metamyelocytes # 0.4 K/mm3 05/30/19 05:38 Myelocytes # 0.0 K/mm3 05/30/19 05:38 Promyelocytes # 0.0 K/mm3 05/30/19 05:38 Blast Cells # 0.0 K/mm3 05/30/19 05:38 WBC Morphology Not Reportable 05/30/19 05:38 Hypersegmented Neuts Not Reportable 05/30/19 05:38 Hyposegmented Neuts Not Reportable 05/30/19 05:38 Hypogranular Neuts Not Reportable 05/30/19 05:38 Smudge Cells Not Reportable 05/30/19 05:38 Toxic Granulation Not Reportable 05/30/19 05:38 Toxic Vacuolation Not Reportable 05/30/19 05:38 Dohle Bodies Not Reportable 05/30/19 05:38 Pelger-Huet Anomaly Not Reportable 05/30/19 05:38 Renea Rods Not Reportable 05/30/19 05:38 Platelet Estimate Consistent w auto 05/30/19 05:38 Clumped Platelets Not Reportable 05/30/19 05:38 Plt Clumps, EDTA Not Reportable 05/30/19 05:38 Large Platelets Not Reportable 05/30/19 05:38 Giant Platelets Not Reportable 05/30/19 05:38 Platelet Satelliting Not Reportable 05/30/19 05:38 Plt Morphology Comment Not Reportable 05/30/19 05:38 RBC Morphology Not Reportable 05/30/19 05:38 Dimorphic RBCs Not Reportable 05/30/19 05:38 Polychromasia Not Reportable 05/30/19 05:38 Hypochromasia Not Reportable 05/30/19 05:38 Poikilocytosis Not Reportable 05/30/19 05:38 Anisocytosis 1+ 05/30/19 05:38 Microcytosis Not Reportable 05/30/19 05:38 Macrocytosis Not Reportable 05/30/19 05:38 Spherocytes Not Reportable 05/30/19 05:38 Pappenheimer Bodies Not Reportable 05/30/19 05:38 Sickle Cells Not Reportable 05/30/19 05:38 Target Cells Not Reportable 05/30/19 05:38 Tear Drop Cells Not Reportable 05/30/19 05:38 Ovalocytes Not Reportable 05/30/19 05:38 Stomatocytes Few 05/30/19 05:38 Helmet Cells Not Reportable 05/30/19 05:38 [place]-B And E Bodies Not Reportable 05/30/19 05:38 [place] Rings Not Reportable 05/30/19 05:38 Dennis Cells Not Reportable 05/30/19 05:38 Bite Cells Not Reportable 05/30/19 05:38 Crenated Cell Not Reportable 05/30/19 05:38 Elliptocytes Not Reportable 05/30/19 05:38 Acanthocytes (Spur) Not Reportable 05/30/19 05:38 Rouleaux Not Reportable 05/30/19 05:38 Hemoglobin C Crystals Not Reportable 05/30/19 05:38 Schistocytes Not Reportable 05/30/19 05:38 Malaria parasites Not Reportable 05/30/19 05:38 Syed Bodies Not Reportable 05/30/19 05:38 Hem Pathologist Commnt No 05/30/19 05:38 PT 15.4 Sec. (12.2-14.9) H 05/01/19 Unknown INR 1.23 (0.87-1.13) H 05/01/19 Unknown APTT 22.7 Sec. (24.2-36.6) L 05/01/19 Unknown POC ABG pH 7.388 (7.35-7.45) 05/30/19 04:30 ABG pH 7.284 pH Units (7.350-7.450) L 05/27/19 04:48 POC ABG pCO2 42.3 (35-45) 05/30/19 04:30 ABG pCO2 53.7 mm Hg 05/27/19 04:48 POC ABG pO2 73 (80-105) L 05/30/19 04:30 ABG pO2 71.6 mm Hg (80.0-90.0) L 05/27/19 04:48 POC ABG HCO3 25.5 (22-26 mml/L) 05/30/19 04:30 ABG HCO3 24.9 mmol/L (20.0-26.0) 05/27/19 04:48 POC ABG Total CO2 27 (23-27mmol/L) 05/30/19 04:30 POC ABG O2 Sat 94 05/30/19 04:30 ABG O2 Saturation 92.0 % (95.0-99.0) L 05/27/19 04:48 ABG O2 Content 9.9 (0.0-44) 05/27/19 04:48 POC ABG Base Excess 0 ((-2) - (+3)mmol/L) 05/30/19 04:30 ABG Base Excess -1.9 mmol/L (-2.0-3.0) 05/27/19 04:48 ABG Hemoglobin 7.7 gm/dl (14.0-18.0) L 05/27/19 04:48 ABG Carboxyhemoglobin 1.8 % (0.0-5.0) 05/27/19 04:48 ABG Methemoglobin 0.5 % (0.0-1.5) 05/27/19 04:48 Oxyhemoglobin 89.9 % (95.0-99.0) L 05/27/19 04:48 FiO2 40 % 05/30/19 04:30 Sodium 135 mmol/L (137-145) L 05/28/19 12:30 Potassium 4.4 mmol/L (3.6-5.0) 05/28/19 12:30 Chloride 95.3 mmol/L (98-107) L 05/28/19 12:30 Carbon Dioxide 22 mmol/L (22-30) 05/28/19 12:30 Anion Gap 22 mmol/L 05/28/19 12:30 BUN 82 mg/dL (9-20) H 05/28/19 12:30 Creatinine 6.0 mg/dL (0.8-1.5) H 05/28/19 12:30 Estimated GFR 13 ml/min 05/28/19 12:30 BUN/Creatinine Ratio 14 % 05/28/19 12:30 Glucose 98 mg/dL (75-100) 05/28/19 12:30 POC Glucose 166 (70-105) H 05/30/19 12:00 Osmolality 327 Mosm/kg 05/07/19 13:45 Uric Acid 18.0 mg/dL (3.5-7.6) H 05/07/19 13:45 Calcium 7.5 mg/dL (8.4-10.2) L 05/28/19 12:30 Phosphorus 4.90 mg/dL (2.5-4.5) H 05/02/19 00:06 Magnesium 2.30 mg/dL (1.7-2.3) 05/02/19 00:06 Total Bilirubin 0.20 mg/dL (0.1-1.2) 05/10/19 05:00 AST 34 units/L (5-40) 05/10/19 05:00 ALT 35 units/L (7-56) 05/10/19 05:00 Alkaline Phosphatase 45 units/L (35-129) 05/10/19 05:00 Total Creatine Kinase 131 units/L (55-170) 05/02/19 04:41 CK-MB (CK-2) 5.2 ng/mL (0.0-4.0) H 05/02/19 04:41 CK-MB (CK-2) Rel Index 3.9 (0-4) 05/02/19 04:41 Troponin T 0.067 ng/mL (0.00-0.029) H D 05/02/19 04:41 NT-Pro-B Natriuret Pep 6831 pg/mL (0-450) H 05/01/19 Unknown Total Protein 6.1 g/dL (6.3-8.2) L 05/10/19 05:00 Albumin 2.5 g/dL (3.9-5) L 05/10/19 05:00 Albumin/Globulin Ratio 0.7 % 05/10/19 05:00 Triglycerides 173 mg/dL (2-149) H 05/17/19 Unknown Cholesterol 173 mg/dL (50-199) 05/02/19 00:06 LDL Cholesterol Direct 126 mg/dL (50-130) 05/02/19 00:06 HDL Cholesterol 18 mg/dL (40-59) L 05/02/19 00:06 Cholesterol/HDL Ratio 9.61 % 05/02/19 00:06 Procalcitonin 0.54 ng/mL (<0.15) 05/03/19 11:52 Urine Color Yellow (Yellow) 05/20/19 12:00 Urine Turbidity Cloudy (Clear) 05/20/19 12:00 Urine pH 5.0 (5.0-7.0) 05/20/19 12:00 Ur Specific [place] 1.015 (1.003-1.030) 05/20/19 12:00 Urine Protein 30 mg/dl mg/dL (Negative) 05/20/19 12:00 Urine Glucose (UA) Neg mg/dL (Negative) 05/20/19 12:00 Urine Ketones Neg mg/dL (Negative) 05/20/19 12:00 Urine Blood Lg (Negative) 05/20/19 12:00 Urine Nitrite Neg (Negative) 05/20/19 12:00 Urine Bilirubin Neg (Negative) 05/20/19 12:00 Urine Urobilinogen < 2.0 mg/dL (<2.0) 05/20/19 12:00 Ur Leukocyte Esterase Mod (Negative) 05/20/19 12:00 Urine WBC (Auto) 26.0 /HPF (0.0-6.0) H 05/20/19 12:00 Urine RBC (Auto) 83.0 /HPF (0.0-6.0) 05/20/19 12:00 Urine Bacteria (Auto) 1+ /HPF (Negative) 05/20/19 12:00 Uric Acid Crystals 3+ 05/03/19 10:55 Urine Mucus Few /HPF 05/20/19 12:00 Urine Yeast (Budding) 3+ /HPF 05/20/19 12:00 Urine Creatinine 292.8 mg/dL (0.1-20.0) H 05/07/19 22:40 Urine Sodium 11 mmol/L 05/07/19 22:40 Urine Total Protein 269 mg/dL (5-11.8) H 05/07/19 22:40 Vancomycin Trough 20.5 ug/mL (5.0-20.0) H 05/15/19 09:00 Random Vancomycin 11.5 ug/mL (0-40.0) 05/27/19 06:00 AMNA Screen Negative (Negative) 05/07/19 13:45 Hepatitis A IgM Ab Non-reactive (NonReactive) 05/07/19 13:45 Hep Bs Antigen Non-reactive (Negative) 05/07/19 13:45 Hep B Core IgM Ab Non-reactive (NonReactive) 05/07/19 13:45 Hepatitis C Antibody Non-reactive (NonReactive) 05/07/19 13:45 Active Medications - Current Medications Current Medications: Generic Name Dose Route Start Last Admin Trade Name Freq PRN Reason Stop Dose Admin Acetaminophen 650 mg 05/30/19 12:00 05/30/19 12:44 Tylenol PO 05/31/19 18:00 650 mg Q4H VICKEY Administration Albumin Human 25 gm 05/19/19 10:47 Alburx 25% (Albumin) IV ARIANE PRN Hypotension Alteplase, Recombinant 2 mg 05/25/19 09:30 05/28/19 21:15 Cathflo IV 2 mg ARIANE PRN Administration LINE FLUSH Lipase/Protease/Amylase 1 each 05/14/19 15:[address] 10,500 Unit FEEDTUBE PRN PRN For Clogged Feeding Tube Dextrose 50 gm 05/01/19 20:24 D50w (25gm) Vial IV Q30MIN PRN Hypoglycemia Protocol Enoxaparin Sodium 30 mg 05/16/19 10:00 05/30/19 10:10 Enoxaparin SUB-Q 30 mg QDAY VICKEY Administration Epoetin Hugo 10,000 unit 05/19/19 10:47 05/29/19 12:53 Procrit IV 10,000 unit ARIANE PRN Administration hemodialysis Famotidine 20 mg 05/16/19 10:00 05/30/19 10:10 Pepcid PO 20 mg DAILY VICKEY Administration Hydralazine HCl 20 mg 05/13/19 08:09 05/14/19 18:09 Apresoline IV 20 mg Q4HR PRN Administration SBP >/=160 Hydrophilic Ointment 1 applic 05/01/19 21:14 Vaseline Lip Therapy TP Q2HR PRN Dry Lips Fentanyl Citrate 2,000 mcg in 100 mls @ 10.195 mls/hr 05/01/19 22:00 05/30/19 12:00 Fentanyl Drip Premix IV 0 mcg/kg/hr TITR VICKEY 0 mls/hr Titration Protocol 1 MCG/KG/HR Propofol 1,000 mg in 100 mls @ 7.011 mls/hr 05/03/19 04:00 05/30/19 12:00 Diprivan 10 Mg/Ml IV 0 mcg/kg/min TITR VICKEY 0 mls/hr Titration Protocol 5 MCG/KG/MIN Norepinephrine 4 mg in 250 mls @ 7.5 mls/hr 05/03/19 18:00 05/20/19 08:04 Levophed Drip 4 Mg/Ns 250 Ml IV 0 mcg/min TITR VICKEY 0 mls/hr Titration Protocol 2 MCG/MIN Sodium Chloride 500 mls @ 10 mls/hr 05/06/19 15:00 Nacl 0.9% 500 Ml IV DIRECT VICKEY Nicardipine HCl 50 mg/ Sodium 250 mls @ 25 mls/hr 05/13/19 10:00 05/14/19 23:12 Chloride IV 0 mg/hr TITR VICKEY 0 mls/hr Titration Protocol 5 MG/HR Sodium Chloride 100 mls @ 999 mls/hr 05/19/19 10:47 05/20/19 08:14 Nacl 0.9% IV 999 mls/hr ARIANE PRN Administration Hypotension Labetalol HCl 100 mg 05/14/19 14:00 05/30/19 13:51 Labetalol PO 100 mg Q8HR VICKEY Administration Levetiracetam 750 mg 05/13/19 10:00 05/30/19 10:09 Keppra PO 750 mg BID VICKEY Administration Lorazepam 2 mg 05/06/19 06:22 05/10/19 16:17 Ativan IV 2 mg Q4H PRN Administration Seizures/AGITATION Methylprednisolone Sodium Succinate 125 mg 05/29/19 14:00 05/30/19 13:51 Solu-Medrol IV 125 mg Q8HR VICKEY Administration Multi-Ingred Cream/Lotion/Oil/Oint 1 applic 05/01/19 21:14 Artificial Tears Ophth Oint OU Q4HR PRN Dry Eye(s) Ondansetron HCl 4 mg 05/01/19 22:46 Zofran IV Q8H PRN Nausea And Vomiting Scopolamine 1 each 05/20/19 12:00 05/20/19 12:52 Transderm-Scop TD 1 each Q72HR VICKEY Administration Simple Syrup 15 ml 05/14/19 15:01 Simple Syrup FEEDTUBE PRN PRN Hypoglycemia Simple Syrup 30 ml 05/14/19 15:01 Simple Syrup FEEDTUBE PRN PRN Hypoglycemia Sodium Bicarbonate 325 mg 05/14/19 15:01 Sodium Bicarbonate FEEDTUBE PRN PRN For Clogged Feeding Tube Sodium Chloride 10 ml 05/02/19 10:00 05/30/19 11:05 Sodium Chloride Flush Syringe 10 Ml IV Not Given BID VICKEY Sodium Chloride 10 ml 05/01/19 22:46 05/05/19 02:28 Sodium Chloride Flush Syringe 10 Ml IV 10 ml PRN PRN Administration LINE FLUSH Nutrition/Malnutrition Assess - Dietary Evaluation Nutrition/Malnutrition Findings: Nutrition Notes Start: 05/04/19 12:54 Freq: Status: Active Protocol: Document 05/28/19 11:56 LP (Rec: 05/28/19 12:04 LP [email or web address]) Nutrition Notes Initial or Follow up Reassessment Current Diagnosis Acute Kidney Injury,Sepsis, Respiratory Failure Other Pertinent Diagnosis on HD Current Diet Nepro 1.8 at 50 ml/hr Labs/Tests Reviewed Pertinent Medications Reviewed Height 6 ft 4 in Weight 261.4 kg [place] Body Weight (kg) 91.81 BMI 70.1 Weight Status Morbidly Obese Subjective/Other Information Pt tolerating Nepro at 50ml/hr . Pt on HD. Percent of energy/protein needs met: 100%/53% Burn Absent Trauma Absent Current % PO Negligible Minimum of two criteria No physical signs of malnutrition #1 Nutrition Diagnosis Inadequate oral intake Diagnosis Progress(for reassessment Continues documentation) Is patient on ventilator? Yes Is Patient Ambulatory and/or Out of Bed No REE-([place]-confined to bed) 4392.636 Kcal/Kg value to use for calculation 8 Approximate Energy Requirements Using 2091 kcal/Kg Calculation Used for Recommendations Kcal/kg Additional Notes PRO needs: 225 g (up to 2.5 g/ kg IBW) Fluid needs: 1 ml/kcal Nutrition Intervention Change Diet Order: Continue TF Nutrition Support: Nepro 1.8 at 50 ml/hr Flush with 150ml q4h Kcal 2,160 Protein (gm) 97 Fluid (mL) 872 Goal #1 TF tolerance Goal #2 Meet at least 75% kcal/PRO needs via TF Anticipated Discharge Needs: Unable to determine at this time Follow-Up By: 06/03/19 Additional Comments Follow fot stable intakes
[2019-05-31] MEDS: fentaNYL DRIP Premix 2,000 MCG/100 ML BAG IV SCH ×3 (02:28→22:45)
[2019-05-31] MEDS: methylPREDNISolone Sod Succinate 125 MG/2 ML INJ IV SCH ×3 (06:00→22:34)
[2019-05-31] MEDS ORDERED: fentaNYL 100 MCG/2 ML INJ ONE (07:37)
[2019-05-31] MEDS ORDERED: propofoL 200 MG/20 ML VIAL IV ONE (07:37)
[2019-05-31] MEDS ORDERED: SODIUM CHLORIDE 0.9% 250ML 250 ML ONE (07:38)
[2019-05-31] MEDS ORDERED: LIDOCAINE MPF (2%) 20 MG/1 ML VIAL 5 ML ONE (07:38)
[2019-05-31] MEDS ORDERED: HEPARIN 10,000 UNITS/10 ML VIAL ONE (07:38)
[2019-05-31] MEDS ORDERED: LIDOCAINE (1%) 10 MG/1 ML VIAL 20 ML MDV ONE (07:38)
[2019-05-31] MEDS ORDERED: ROCURONIUM 50 MG/5 ML INJ IV ONE (07:38)
[2019-05-31] MEDS: ACETAMINOPHEN 325 MG TAB PO SCH ×4 (08:43→17:37)
--- NOTE | 2019-05-31 08:43 | Progress Note ---
Assessment and Plan Assessment and plan: Patient is a 34-year-old man who is morbidly obese (575 lbs) with unknown medical history who presented to [facility] ED on 05/01/2019 (I started seeing patient for the first time on 05/20/19, Day 19) with SOB. He was placed on BIPAP and failed. He had a cardiac arrest in ED and was Intubated in ED. On 05/12/19- ETT exchanged due to hypoxia. In the chart there is a report that he has undiagnosis LANDON and using someone else CPAP. I spoke with his mother Magalis Jay on Saturday May 25, 2019 at [phone], her answered the phone but he is not James' father. She came to the phone. She appeared to be crying, she says she has the FLU but no other family has visit patient to my knowledge. On 05/27/2018, he bite down on ruptured ETT tube which was replaced again. Patient remains intubated on very high PEEP which is preventing Tracheostomy. Patient spiking temperatures, believed to be non-infectious by ID and off abx on IV steroids for possible drug related rash/fever with high Eosinophilia. For perm-a-cath today. 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 Obesity Hypoventilation syndrome Patient previously on LANDON Management at home but per discussion with family, was non complaint Sepsis- not present on admission -On abx, ID following. LP when able ?Meningitis considering recurrent fever. Doubt, but ID following Acylovir stopped Monitoring Temperature, ID following size prohibits leon CT scanner ?Seizure activity during hospital coarse, none since i have been following since 05/20/19 -Meninigitis prophy done, ID following -Neurology consult -EEG-negative Acute CHF, new onset, diastolic treated with IV lasix now held, on HD now monitor I/O, daily weights Cardiology following. Added beta-jenny, no TIM inhibitor secondary to renal insufficiency Hypertension malignant IV hydralazine as needed for further control Acute kidney injury due to ATN ?Vancomycin toxicity, Held. Monitor Nephrology following and input noted. Berkowitz for strict I/Os HD per nephrology Hyperkalemia-Kaylexate given Monitor bmp Passive congestive hepatic syndrome -LFT elevated but trending down -Noted Gallbladder sludge DVT prophylaxis with Lovenox Extreme obesity, bmi 70.1 Full code status. Prognosis guarded History Interval history: Patient was seen and examined. Follow-up on current diagnosis of Respiratory failure. Overnight uneventful. Imaging, nursing note, chart, labs and old chart reviewed. Still intubated and sedated. Hospitalist Physical - Physical exam Narrative exam: Gen: critically ill, bmi 70.1 sedated HEENT: NCAT, OP ETT in place Neck: supple, no adenopathy, no thyromegaly, no JVD CVS/Heart: tachycardiac, normal S1S2, pulses present bilaterally Chest/Lungs: tachypneic, Symmetrical chest expansion, good air entry bilatera lly GI/Abdomen: soft, NTND, good bowel sounds, no guarding or rebound : scrotal edema, unable to see his penis Extermity/Skin: good skin turgor MSK: sedated Neuro: sedated Psych: sedated - Constitutional Vitals: Temp Pulse Resp BP Pulse Ox 99.9 F H 85 25 H 147/85 93 05/31/19 04:00 05/31/19 07:35 05/31/19 07:30 05/31/19 07:35 05/31/19 07:35 General appearance: Present: no acute distress Results - Labs CBC & Chem 7: 05/30/19 05:38 05/28/19 12:30 Labs: Laboratory Last Values WBC 10.0 K/mm3 (4.5-11.0) 05/30/19 05:38 RBC 3.01 M/mm3 (3.65-5.03) L 05/30/19 05:38 Hgb 8.2 gm/dl (11.8-15.2) L 05/30/19 05:38 Hct 25.3 % (35.5-45.6) L 05/30/19 05:38 MCV 84 fl (84-94) 05/30/19 05:38 MCH 27 pg (28-32) L 05/30/19 05:38 MCHC 33 % (32-34) 05/30/19 05:38 RDW 17.5 % (13.2-15.2) H 05/30/19 05:38 Plt Count 219 K/mm3 (140-440) 05/30/19 05:38 Lymph % (Auto) 7.9 % (13.4-35.0) L 05/18/19 01:50 [place] % (Auto) 16.2 % (0.0-7.3) H 05/22/19 06:25 Eos % (Auto) 10.8 % (0.0-4.3) H 05/22/19 06:25 Baso % (Auto) 0.2 % (0.0-1.8) 05/18/19 01:50 Lymph # 0.7 K/mm3 (1.2-5.4) L 05/18/19 01:50 [place] # 1.3 K/mm3 (0.0-0.8) H 05/22/19 06:25 Eos # 0.9 K/mm3 (0.0-0.4) H 05/22/19 06:25 Baso # 0.0 K/mm3 (0.0-0.1) 05/22/19 06:25 Add Manual Diff Complete 05/30/19 05:38 Total Counted 100 05/30/19 05:38 Seg Neutrophils % 65.5 % (40.0-70.0) 05/22/19 06:25 Seg Neuts % (Manual) 80.0 % (40.0-70.0) H 05/30/19 05:38 Band Neutrophils % 1.0 % 05/30/19 05:38 Lymphocytes % (Manual) 10.0 % (13.4-35.0) L 05/30/19 05:38 Reactive Lymphs % (Man) 0 % 05/30/19 05:38 Monocytes % (Manual) 4.0 % (0.0-7.3) 05/30/19 05:38 Eosinophils % (Manual) 1.0 % (0.0-4.3) 05/30/19 05:38 Basophils % (Manual) 0 % (0.0-1.8) 05/30/19 05:38 Metamyelocytes % 4.0 % 05/30/19 05:38 Myelocytes % 0 % 05/30/19 05:38 Promyelocytes % 0 % 05/30/19 05:38 Blast Cells % 0 % 05/30/19 05:38 Nucleated RBC % Not Reportable 05/30/19 05:38 Seg Neutrophils # 5.3 K/mm3 (1.8-7.7) 05/22/19 06:25 Seg Neutrophils # Man 8.0 K/mm3 (1.8-7.7) H 05/30/19 05:38 Band Neutrophils # 0.1 K/mm3 05/30/19 05:38 Lymphocytes # (Manual) 1.0 K/mm3 (1.2-5.4) L 05/30/19 05:38 Abs React Lymphs (Man) 0.0 K/mm3 05/30/19 05:38 Monocytes # (Manual) 0.4 K/mm3 (0.0-0.8) 05/30/19 05:38 Eosinophils # (Manual) 0.1 K/mm3 (0.0-0.4) 05/30/19 05:38 Basophils # (Manual) 0.0 K/mm3 (0.0-0.1) 05/30/19 05:38 Metamyelocytes # 0.4 K/mm3 05/30/19 05:38 Myelocytes # 0.0 K/mm3 05/30/19 05:38 Promyelocytes # 0.0 K/mm3 05/30/19 05:38 Blast Cells # 0.0 K/mm3 05/30/19 05:38 WBC Morphology Not Reportable 05/30/19 05:38 Hypersegmented Neuts Not Reportable 05/30/19 05:38 Hyposegmented Neuts Not Reportable 05/30/19 05:38 Hypogranular Neuts Not Reportable 05/30/19 05:38 Smudge Cells Not Reportable 05/30/19 05:38 Toxic Granulation Not Reportable 05/30/19 05:38 Toxic Vacuolation Not Reportable 05/30/19 05:38 Dohle Bodies Not Reportable 05/30/19 05:38 Pelger-Huet Anomaly Not Reportable 05/30/19 05:38 Renea Rods Not Reportable 05/30/19 05:38 Platelet Estimate Consistent w auto 05/30/19 05:38 Clumped Platelets Not Reportable 05/30/19 05:38 Plt Clumps, EDTA Not Reportable 05/30/19 05:38 Large Platelets Not Reportable 05/30/19 05:38 Giant Platelets Not Reportable 05/30/19 05:38 Platelet Satelliting Not Reportable 05/30/19 05:38 Plt Morphology Comment Not Reportable 05/30/19 05:38 RBC Morphology Not Reportable 05/30/19 05:38 Dimorphic RBCs Not Reportable 05/30/19 05:38 Polychromasia Not Reportable 05/30/19 05:38 Hypochromasia Not Reportable 05/30/19 05:38 Poikilocytosis Not Reportable 05/30/19 05:38 Anisocytosis 1+ 05/30/19 05:38 Microcytosis Not Reportable 05/30/19 05:38 Macrocytosis Not Reportable 05/30/19 05:38 Spherocytes Not Reportable 05/30/19 05:38 Pappenheimer Bodies Not Reportable 05/30/19 05:38 Sickle Cells Not Reportable 05/30/19 05:38 Target Cells Not Reportable 05/30/19 05:38 Tear Drop Cells Not Reportable 05/30/19 05:38 Ovalocytes Not Reportable 05/30/19 05:38 Stomatocytes Few 05/30/19 05:38 Helmet Cells Not Reportable 05/30/19 05:38 [place] Bodies Not Reportable 05/30/19 05:38 [place] Rings Not Reportable 05/30/19 05:38 Evans Cells Not Reportable 05/30/19 05:38 Bite Cells Not Reportable 05/30/19 05:38 Crenated Cell Not Reportable 05/30/19 05:38 Elliptocytes Not Reportable 05/30/19 05:38 Acanthocytes (Spur) Not Reportable 05/30/19 05:38 Rouleaux Not Reportable 05/30/19 05:38 Hemoglobin C Crystals Not Reportable 05/30/19 05:38 Schistocytes Not Reportable 05/30/19 05:38 Malaria parasites Not Reportable 05/30/19 05:38 Syed Bodies Not Reportable 05/30/19 05:38 Hem Pathologist Commnt No 05/30/19 05:38 PT 15.4 Sec. (12.2-14.9) H 05/01/19 Unknown INR 1.23 (0.87-1.13) H 05/01/19 Unknown APTT 22.7 Sec. (24.2-36.6) L 05/01/19 Unknown POC ABG pH 7.357 (7.35-7.45) 05/31/19 04:07 ABG pH 7.284 pH Units (7.350-7.450) L 05/27/19 04:48 POC ABG pCO2 47.4 (35-45) H 05/31/19 04:07 ABG pCO2 53.7 mm Hg 05/27/19 04:48 POC ABG pO2 92 (80-105) 05/31/19 04:07 ABG pO2 71.6 mm Hg (80.0-90.0) L 05/27/19 04:48 POC ABG HCO3 26.6 (22-26 mml/L) 05/31/19 04:07 ABG HCO3 24.9 mmol/L (20.0-26.0) 05/27/19 04:48 POC ABG Total CO2 28 (23-27mmol/L) 05/31/19 04:07 POC ABG O2 Sat 97 05/31/19 04:07 ABG O2 Saturation 92.0 % (95.0-99.0) L 05/27/19 04:48 ABG O2 Content 9.9 (0.0-44) 05/27/19 04:48 POC ABG Base Excess 1 ((-2) - (+3)mmol/L) 05/31/19 04:07 ABG Base Excess -1.9 mmol/L (-2.0-3.0) 05/27/19 04:48 ABG Hemoglobin 7.7 gm/dl (14.0-18.0) L 05/27/19 04:48 ABG Carboxyhemoglobin 1.8 % (0.0-5.0) 05/27/19 04:48 ABG Methemoglobin 0.5 % (0.0-1.5) 05/27/19 04:48 Oxyhemoglobin 89.9 % (95.0-99.0) L 05/27/19 04:48 FiO2 35 % 05/31/19 04:07 Sodium 135 mmol/L (137-145) L 05/28/19 12:30 Potassium 4.4 mmol/L (3.6-5.0) 05/28/19 12:30 Chloride 95.3 mmol/L (98-107) L 05/28/19 12:30 Carbon Dioxide 22 mmol/L (22-30) 05/28/19 12:30 Anion Gap 22 mmol/L 05/28/19 12:30 BUN 82 mg/dL (9-20) H 05/28/19 12:30 Creatinine 6.0 mg/dL (0.8-1.5) H 05/28/19 12:30 Estimated GFR 13 ml/min 05/28/19 12:30 BUN/Creatinine Ratio 14 % 05/28/19 12:30 Glucose 98 mg/dL (75-100) 05/28/19 12:30 POC Glucose 209 (70-105) H 05/30/19 23:45 Osmolality 327 Mosm/kg 05/07/19 13:45 Uric Acid 18.0 mg/dL (3.5-7.6) H 05/07/19 13:45 Calcium 7.5 mg/dL (8.4-10.2) L 05/28/19 12:30 Phosphorus 4.90 mg/dL (2.5-4.5) H 05/02/19 00:06 Magnesium 2.30 mg/dL (1.7-2.3) 05/02/19 00:06 Total Bilirubin 0.20 mg/dL (0.1-1.2) 05/10/19 05:00 AST 34 units/L (5-40) 05/10/19 05:00 ALT 35 units/L (7-56) 05/10/19 05:00 Alkaline Phosphatase 45 units/L (35-129) 05/10/19 05:00 Total Creatine Kinase 131 units/L (55-170) 05/02/19 04:41 CK-MB (CK-2) 5.2 ng/mL (0.0-4.0) H 05/02/19 04:41 CK-MB (CK-2) Rel Index 3.9 (0-4) 05/02/19 04:41 Troponin T 0.067 ng/mL (0.00-0.029) H D 05/02/19 04:41 NT-Pro-B Natriuret Pep 6831 pg/mL (0-450) H 05/01/19 Unknown Total Protein 6.1 g/dL (6.3-8.2) L 05/10/19 05:00 Albumin 2.5 g/dL (3.9-5) L 05/10/19 05:00 Albumin/Globulin Ratio 0.7 % 05/10/19 05:00 Triglycerides 173 mg/dL (2-149) H 05/17/19 Unknown Cholesterol 173 mg/dL (50-199) 05/02/19 00:06 LDL Cholesterol Direct 126 mg/dL (50-130) 05/02/19 00:06 HDL Cholesterol 18 mg/dL (40-59) L 05/02/19 00:06 Cholesterol/HDL Ratio 9.61 % 05/02/19 00:06 Procalcitonin 0.54 ng/mL (<0.15) 05/03/19 11:52 Urine Color Yellow (Yellow) 05/20/19 12:00 Urine Turbidity Cloudy (Clear) 05/20/19 12:00 Urine pH 5.0 (5.0-7.0) 05/20/19 12:00 Ur Specific [place] 1.015 (1.003-1.030) 05/20/19 12:00 Urine Protein 30 mg/dl mg/dL (Negative) 05/20/19 12:00 Urine Glucose (UA) Neg mg/dL (Negative) 05/20/19 12:00 Urine Ketones Neg mg/dL (Negative) 05/20/19 12:00 Urine Blood Lg (Negative) 05/20/19 12:00 Urine Nitrite Neg (Negative) 05/20/19 12:00 Urine Bilirubin Neg (Negative) 05/20/19 12:00 Urine Urobilinogen < 2.0 mg/dL (<2.0) 05/20/19 12:00 Ur Leukocyte Esterase Mod (Negative) 05/20/19 12:00 Urine WBC (Auto) 26.0 /HPF (0.0-6.0) H 05/20/19 12:00 Urine RBC (Auto) 83.0 /HPF (0.0-6.0) 05/20/19 12:00 Urine Bacteria (Auto) 1+ /HPF (Negative) 05/20/19 12:00 Uric Acid Crystals 3+ 05/03/19 10:55 Urine Mucus Few /HPF 05/20/19 12:00 Urine Yeast (Budding) 3+ /HPF 05/20/19 12:00 Urine Creatinine 292.8 mg/dL (0.1-20.0) H 05/07/19 22:40 Urine Sodium 11 mmol/L 05/07/19 22:40 Urine Total Protein 269 mg/dL (5-11.8) H 05/07/19 22:40 Vancomycin Trough 20.5 ug/mL (5.0-20.0) H 05/15/19 09:00 Random Vancomycin 11.5 ug/mL (0-40.0) 05/27/19 06:00 AMNA Screen Negative (Negative) 05/07/19 13:45 Hepatitis A IgM Ab Non-reactive (NonReactive) 05/07/19 13:45 Hep Bs Antigen Non-reactive (Negative) 05/07/19 13:45 Hep B Core IgM Ab Non-reactive (NonReactive) 05/07/19 13:45 Hepatitis C Antibody Non-reactive (NonReactive) 05/07/19 13:45 Active Medications - Current Medications Current Medications: Generic Name Dose Route Start Last Admin Trade Name Freq PRN Reason Stop Dose Admin Acetaminophen 650 mg 05/30/19 12:00 05/31/19 00:00 Tylenol PO 05/31/19 18:00 650 mg Q4H VICKEY Administration Albumin Human 25 gm 05/19/19 10:47 Alburx 25% (Albumin) IV ARIANE PRN Hypotension Alteplase, Recombinant 2 mg 05/25/19 09:30 05/28/19 21:15 Cathflo IV 2 mg ARIANE PRN Administration LINE FLUSH Lipase/Protease/Amylase 1 each 05/14/19 15:01 Pancremannie Fletcher 10,500 Unit FEEDTUBE PRN PRN For Clogged Feeding Tube Dextrose 50 gm 05/01/19 20:24 D50w (25gm) Vial IV Q30MIN PRN Hypoglycemia Protocol Enoxaparin Sodium 30 mg 05/16/19 10:00 05/30/19 10:10 Enoxaparin SUB-Q 30 mg QDAY VICKEY Administration Epoetin Hugo 10,000 unit 05/19/19 10:47 05/29/19 12:53 Procrit IV 10,000 unit ARIANE PRN Administration hemodialysis Famotidine 20 mg 05/16/19 10:00 05/30/19 10:10 Pepcid PO 20 mg DAILY VICKEY Administration Hydralazine HCl 20 mg 05/13/19 08:09 05/14/19 18:09 Apresoline IV 20 mg Q4HR PRN Administration SBP >/=160 Hydrophilic Ointment 1 applic 05/01/19 21:14 Vaseline Lip Therapy TP Q2HR PRN Dry Lips Fentanyl Citrate 2,000 mcg in 100 mls @ 10.195 mls/hr 05/01/19 22:00 05/31/19 02:28 Fentanyl Drip Premix IV 1 mcg/kg/hr TITR VICKEY 10.195 mls/hr Administration Protocol 1 MCG/KG/HR Propofol 1,000 mg in 100 mls @ 7.011 mls/hr 05/03/19 04:00 05/31/19 02:30 Diprivan 10 Mg/Ml IV 5 mcg/kg/min TITR VICKEY 7.011 mls/hr Administration Protocol 5 MCG/KG/MIN Norepinephrine 4 mg in 250 mls @ 7.5 mls/hr 05/03/19 18:00 05/20/19 08:04 Levophed Drip 4 Mg/Ns 250 Ml IV 0 mcg/min TITR VICKEY 0 mls/hr Titration Protocol 2 MCG/MIN Sodium Chloride 500 mls @ 10 mls/hr 05/06/19 15:00 Nacl 0.9% 500 Ml IV DIRECT VICKEY Nicardipine HCl 50 mg/ Sodium 250 mls @ 25 mls/hr 05/13/19 10:00 05/14/19 23:12 Chloride IV 0 mg/hr TITR VICKEY 0 mls/hr Titration Protocol 5 MG/HR Sodium Chloride 100 mls @ 999 mls/hr 05/19/19 10:47 05/20/19 08:14 Nacl 0.9% IV 999 mls/hr ARIANE PRN Administration Hypotension Labetalol HCl 100 mg 05/14/19 14:00 05/30/19 23:19 Labetalol PO 100 mg Q8HR VICKEY Administration Levetiracetam 750 mg 05/13/19 10:00 05/30/19 23:18 Keppra PO 750 mg BID VICKEY Administration Lorazepam 2 mg 05/06/19 06:22 05/10/19 16:17 Ativan IV 2 mg Q4H PRN Administration Seizures/AGITATION Methylprednisolone Sodium Succinate 125 mg 05/29/19 14:00 05/30/19 23:18 Solu-Medrol IV 125 mg Q8HR VICKEY Administration Multi-Ingred Cream/Lotion/Oil/Oint 1 applic 05/01/19 21:14 Artificial Tears Ophth Oint OU Q4HR PRN Dry Eye(s) Ondansetron HCl 4 mg 05/01/19 22:46 Zofran IV Q8H PRN Nausea And Vomiting Scopolamine 1 each 05/20/19 12:00 05/20/19 12:52 Transderm-Scop TD 1 each Q72HR VICKEY Administration Simple Syrup 15 ml 05/14/19 15:01 Simple Syrup FEEDTUBE PRN PRN Hypoglycemia Simple Syrup 30 ml 05/14/19 15:01 Simple Syrup FEEDTUBE PRN PRN Hypoglycemia Sodium Bicarbonate 325 mg 05/14/19 15:01 Sodium Bicarbonate FEEDTUBE PRN PRN For Clogged Feeding Tube Sodium Chloride 10 ml 05/02/19 10:00 05/30/19 23:19 Sodium Chloride Flush Syringe 10 Ml IV 10 ml BID VICKEY Administration Sodium Chloride 10 ml 05/01/19 22:46 05/05/19 02:28 Sodium Chloride Flush Syringe 10 Ml IV 10 ml PRN PRN Administration LINE FLUSH Nutrition/Malnutrition Assess - Dietary Evaluation Nutrition/Malnutrition Findings: Nutrition Notes Start: 05/04/19 12:54 Freq: Status: Active Protocol: Document 05/28/19 11:56 LP (Rec: 05/28/19 12:04 LP [id number]) Nutrition Notes Initial or Follow up Reassessment Current Diagnosis Acute Kidney Injury,Sepsis, Respiratory Failure Other Pertinent Diagnosis on HD Current Diet Nepro 1.8 at 50 ml/hr Labs/Tests Reviewed Pertinent Medications Reviewed Height 6 ft 4 in Weight 261.4 kg Anderson Body Weight (kg) 91.81 BMI 70.1 Weight Status Morbidly Obese Subjective/Other Information Pt tolerating Nepro at 50ml/hr . Pt on HD. Percent of energy/protein needs met: 100%/53% Burn Absent Trauma Absent Current % PO Negligible Minimum of two criteria No physical signs of malnutrition #1 Nutrition Diagnosis Inadequate oral intake Diagnosis Progress(for reassessment Continues documentation) Is patient on ventilator? Yes Is Patient Ambulatory and/or Out of Bed No [facility] 4392.636 Kcal/Kg value to use for calculation 8 Approximate Energy Requirements Using 2091 kcal/Kg Calculation Used for Recommendations Kcal/kg Additional Notes PRO needs: 225 g (up to 2.5 g/ kg IBW) Fluid needs: 1 ml/kcal Nutrition Intervention Change Diet Order: Continue TF Nutrition Support: Nepro 1.8 at 50 ml/hr Flush with 150ml q4h Kcal 2,160 Protein (gm) 97 Fluid (mL) 872 Goal #1 TF tolerance Goal #2 Meet at least 75% kcal/PRO needs via TF Anticipated Discharge Needs: Unable to determine at this time Follow-Up By: 06/03/19 Additional Comments Follow fot stable intakes
--- NOTE | 2019-05-31 09:28 | Progress Note ---
Subjective Principal diagnosis: HF; acute hypoxemic resp failure, SIRS, CARLA Interval history: Patient was seen today for follow-up on multiple renal related issues Events of this hospitalization were noted Has been initiated on renal placement therapy due to acute renal failure likely due to vancomycin toxicity Interdisciplinary notes were also reviewed Vitals intake output medications were reviewed Past medical history: Reviewed Family, social history: Reviewed Allergies: Reviewed Physical examination General: No acute distress Vitals: Reviewed HEENT: Oral mucosa moist no icterus Neck: Supple no thyromegaly nodular mass or JVD Chest: Clear to auscultation anteriorly Heart: Regular rate and rhythm S1-S2 heard no S3-S4 Abdomen: Soft nontender no suprapubic masses no organomegaly Extremity: Dry skin less than 1+ edema Psych: No evidence of any agitation and aggression noted Derm: No petechial rash Assessment and plan: Acute kidney injury: Multifactorial in etiology most likely due to vancomycin toxicity currently dialysis dependent Will order for labs today, Patient is currently pending permacath placement Dialysis time is for approximately four hours Blood pressure appears to be stablee We need to monitor his intake and output closely Hyperkalemia: Continue to monitor and follow Patient was admitted here with sepsis respiratory failure and hypotension Has been placed in hemodialysis Friday and Friday Continue to monitor renal function hemodialysis only as required Anemia and the setting of renal failure: Continue to monitor periodically may require packed red blood cell transfusion as well as erythropoietin Encephalopathy: Multifactorial, also does have seizure disorder respiratory failure and fever Renal prognosis remains very guarded at this time Total time spent in critical care setting 33 minutes at the bedside Multiple underlying comorbidities including, cardiac arrest, encephalopathy, obesity hypoventilation, sepsis, seizure activity, congestive heart failure, res piratory failure We'll continue to follow and make recommendation from renal standpoint Objective - Vital Signs Vital signs: Vital Signs - 12hr 05/30/19 05/30/19 05/30/19 21:30 22:00 22:30 Temperature Pulse Rate 72 87 72 Pulse Rate [ From Monitor] Respiratory 18 22 21 Rate Blood Pressure 128/56 141/72 131/59 O2 Sat by Pulse 95 96 97 Oximetry 05/30/19 05/30/19 05/30/19 23:00 23:18 23:19 Temperature 100.8 F H Pulse Rate 69 88 Pulse Rate [ From Monitor] Respiratory 15 Rate Blood Pressure 130/54 144/72 O2 Sat by Pulse 98 Oximetry 05/30/19 05/30/19 05/31/19 23:30 23:49 00:00 Temperature Pulse Rate 87 95 H 73 Pulse Rate [ 78 From Monitor] Respiratory 23 17 Rate Blood Pressure 142/69 130/54 136/61 O2 Sat by Pulse 95 98 96 Oximetry 05/31/19 05/31/19 05/31/19 00:30 01:00 01:30 Temperature Pulse Rate 80 71 77 Pulse Rate [ From Monitor] Respiratory 17 20 20 Rate Blood Pressure 144/66 130/60 141/72 O2 Sat by Pulse 95 97 96 Oximetry 05/31/19 05/31/19 05/31/19 02:00 02:30 03:00 Temperature Pulse Rate 71 68 82 Pulse Rate [ From Monitor] Respiratory 16 21 18 Rate Blood Pressure 135/63 132/64 147/74 O2 Sat by Pulse 95 96 94 Oximetry 05/31/19 05/31/19 05/31/19 03:17 03:30 04:00 Temperature 99.9 F H Pulse Rate 83 89 80 Pulse Rate [ 78 From Monitor] Respiratory 19 25 H Rate Blood Pressure 147/74 146/71 149/77 O2 Sat by Pulse 97 97 96 Oximetry 05/31/19 05/31/19 05/31/19 04:30 05:00 05:30 Temperature Pulse Rate 74 71 70 Pulse Rate [ From Monitor] Respiratory 16 15 14 Rate Blood Pressure 150/73 138/64 138/64 O2 Sat by Pulse 94 95 95 Oximetry 05/31/19 05/31/19 05/31/19 06:00 06:30 07:00 Temperature Pulse Rate 82 75 76 Pulse Rate [ From Monitor] Respiratory 15 15 17 Rate Blood Pressure 150/75 149/70 147/73 O2 Sat by Pulse 93 94 94 Oximetry 05/31/19 05/31/19 07:30 07:35 Temperature Pulse Rate 91 H 85 Pulse Rate [ From Monitor] Respiratory 25 H Rate Blood Pressure 162/90 147/85 O2 Sat by Pulse 93 93 Oximetry - Lab 05/31/19 13:04 05/31/19 13:04 Most recent lab results ABG pH 7.284 pH Units (7.350-7.450) L 05/27/19 04:48 ABG pCO2 53.7 mm Hg 05/27/19 04:48 ABG pO2 71.6 mm Hg (80.0-90.0) L 05/27/19 04:48 ABG HCO3 24.9 mmol/L (20.0-26.0) 05/27/19 04:48 ABG O2 Saturation 92.0 % (95.0-99.0) L 05/27/19 04:48 Calcium 7.5 mg/dL (8.4-10.2) L 05/28/19 12:30 Phosphorus 4.90 mg/dL (2.5-4.5) H 05/02/19 00:06 Magnesium 2.30 mg/dL (1.7-2.3) 05/02/19 00:06 Urine Creatinine 292.8 mg/dL (0.1-20.0) H 05/07/19 22:40 Urine Sodium 11 mmol/L 05/07/19 22:40 Urine Total Protein 269 mg/dL (5-11.8) H 05/07/19 22:40 Medications & Allergies - Medications Allergies/Adverse Reactions: Allergies No Known Allergies Allergy (Verified 05/01/19 20:27) Home Medications: Home Medications Medication Instructions Recorded Confirmed Last Taken Type No Known Home Medications [No 05/03/19 05/03/19 Unknown History Reported Home Medications] Active Medications: Generic Name Dose Route Start Last Admin Trade Name Freq PRN Reason Stop Dose Admin Acetaminophen 650 mg 05/30/19 12:00 05/31/19 08:43 Tylenol PO 05/31/19 18:00 Not Given Q4H VICKEY Albumin Human 25 gm 05/19/19 10:47 Alburx 25% (Albumin) IV ARIANE PRN Hypotension Alteplase, Recombinant 2 mg 05/25/19 09:30 05/28/19 21:15 Cathflo IV 2 mg ARIANE PRN Administration LINE FLUSH Lipase/Protease/Amylase 1 each 05/14/19 15:01 Pancremannie Fletcher 10,500 Unit FEEDTUBE PRN PRN For Clogged Feeding Tube Dextrose 50 gm 05/01/19 20:24 D50w (25gm) Vial IV Q30MIN PRN Hypoglycemia Protocol Enoxaparin Sodium 30 mg 05/16/19 10:00 05/30/19 10:10 Enoxaparin SUB-Q 30 mg QDAY VICKEY Administration Epoetin Hugo 10,000 unit 05/19/19 10:47 05/29/19 12:53 Procrit IV 10,000 unit ARIANE PRN Administration hemodialysis Famotidine 20 mg 05/16/19 10:00 05/30/19 10:10 Pepcid PO 20 mg DAILY VICKEY Administration Hydralazine HCl 20 mg 05/13/19 08:09 05/14/19 18:09 Apresoline IV 20 mg Q4HR PRN Administration SBP >/=160 Hydrophilic Ointment 1 applic 05/01/19 21:14 Vaseline Lip Therapy TP Q2HR PRN Dry Lips Fentanyl Citrate 2,000 mcg in 100 mls @ 10.195 mls/hr 05/01/19 22:00 05/31/19 02:28 Fentanyl Drip Premix IV 1 mcg/kg/hr TITR VICKEY 10.195 mls/hr Administration Protocol 1 MCG/KG/HR Propofol 1,000 mg in 100 mls @ 7.011 mls/hr 05/03/19 04:00 05/31/19 02:30 Diprivan 10 Mg/Ml IV 5 mcg/kg/min TITR VICKEY 7.011 mls/hr Administration Protocol 5 MCG/KG/MIN Sodium Chloride 500 mls @ 10 mls/hr 05/06/19 15:00 Nacl 0.9% 500 Ml IV DIRECT VICKEY Sodium Chloride 100 mls @ 999 mls/hr 05/19/19 10:47 05/20/19 08:14 Nacl 0.9% IV 999 mls/hr ARIANE PRN Administration Hypotension Labetalol HCl 100 mg 05/14/19 14:00 05/30/19 23:19 Labetalol PO 100 mg Q8HR VICKEY Administration Levetiracetam 750 mg 05/13/19 10:00 05/30/19 23:18 Keppra PO 750 mg BID VICKEY Administration Lorazepam 2 mg 05/06/19 06:22 05/10/19 16:17 Ativan IV 2 mg Q4H PRN Administration Seizures/AGITATION Methylprednisolone Sodium Succinate 125 mg 05/29/19 14:00 05/30/19 23:18 Solu-Medrol IV 125 mg Q8HR VICKEY Administration Multi-Ingred Cream/Lotion/Oil/Oint 1 applic 05/01/19 21:14 Artificial Tears Ophth Oint OU Q4HR PRN Dry Eye(s) Ondansetron HCl 4 mg 05/01/19 22:46 Zofran IV Q8H PRN Nausea And Vomiting Scopolamine 1 each 05/20/19 12:00 05/20/19 12:52 Transderm-Scop TD 1 each Q72HR VICKEY Administration Simple Syrup 15 ml 05/14/19 15:01 Simple Syrup FEEDTUBE PRN PRN Hypoglycemia Simple Syrup 30 ml 05/14/19 15:01 Simple Syrup FEEDTUBE PRN PRN Hypoglycemia Sodium Bicarbonate 325 mg 05/14/19 15:01 Sodium Bicarbonate FEEDTUBE PRN PRN For Clogged Feeding Tube Sodium Chloride 10 ml 05/02/19 10:00 05/30/19 23:19 Sodium Chloride Flush Syringe 10 Ml IV 10 ml BID VICKEY Administration Sodium Chloride 10 ml 05/01/19 22:46 05/05/19 02:28 Sodium Chloride Flush Syringe 10 Ml IV 10 ml PRN PRN Administration LINE FLUSH
[2019-05-31] MEDS ORDERED: HEPARIN 10,000 UNITS/10 ML VIAL IV ONE (09:39)
[2019-05-31] MEDS ORDERED: LIDOCAINE (1%) 10 MG/1 ML VIAL 20 ML MDV INFILTRATI ONE (09:39)
[2019-05-31] MEDS ORDERED: SODIUM CHLORIDE 0.9% 250 ML IVPB IR ONE (09:40)
--- NOTE | 2019-05-31 10:25 | Fluoroscopy Report ---
Fluoroscopy Central venous device placement HISTORY: Left permacath placement IMPRESSION: 1.3 minutes of fluoroscopy time was provided by radiology during permacath placement. A s jimenez fluoroscopic image of the precordial region of the chest demonstrates the distal tip of the cat heter near the cavoatrial junction. Signer Name: Doni Jeffrey Jr, MD Signed: 05/31/2019 10:20 AM Workstation Name: [id number]
--- NOTE | 2019-05-31 10:35 | Post Operative Note ---
Pre-op diagnosis: ESRD Post-op diagnosis: same Procedure: 1. Left IJ Permcath Insertion 2. Right IJ Vascath Removal Anesthesia: GETA Surgeon: BETTE JOHNSON Estimated blood loss: minimal Pathology: none Condition: stable Disposition: ICU
--- NOTE | 2019-05-31 11:01 | Operative Report ---
STAFF SURGEON: Dr. Dae Gonzalez. PREOPERATIVE DIAGNOSIS: End-stage renal disease. POSTOPERATIVE DIAGNOSIS: End-stage renal disease. PROCEDURE PERFORMED: 1. Left IJ PermCath insertion. 2. Right IJ Vas-Cath removal. COMPLICATIONS: None. ESTIMATED BLOOD LOSS: Less than 10 mL. ANESTHESIA: General. INDICATIONS FOR PROCEDURE: This is a 34-year-old gentleman who was hospitalized with multisystem organ failure, who was initiated on dialysis during this hospital stay with a temporary dialysis catheter via the right internal jugular vein. The patient's renal function has not recovered and is felt the patient is in need of permanent access. The patient's family was explained the risks, benefits and alternatives of procedure, expressed understanding and wished to proceed. DESCRIPTION OF PROCEDURE: After appropriate consent was obtained, the patient was brought back to the operating room and placed on operating table in supine position. The left neck and chest were prepped and draped in the usual sterile fashion with ChloraPrep. Appropriate timeout was performed indicating correct patient, procedure and site of procedure. I then began the intervention by obtaining percutaneous access of the left internal jugular vein using micropuncture technique under ultrasound guidance, was to obtain access, needle was exchanged for a micropuncture sheath. Using Seldinger technique, we then proceeded to place a stiff J wire into the inferior vena cava. The micropuncture sheath was removed. A stab incision was made on the anterior chest wall and a 27-week straight PermCath was tunneled through the stab incision to the access site. Access site was then thoroughly dilated appropriately and then a sheath and dilator was placed over the wire into the SVC. Dilator and wire were removed. The catheter was then placed through the peel-away sheath with the tip of the catheter at the SVC right atrial junction. The peel-away sheath was removed. Both lumens lalita blood appropriately, were flushed with heparinized saline. Appropriate amount of heparin was placed in each port. Access site was then closed with deep subcutaneous layer with 3-0 Vicryl and skin was approximated with 3-0 nylon. The catheter exit site was sutured in place with 3-0 nylon. Appropriate dressing was placed, then proceeded to cut the suture of the right IJ Vas-Cath and then, this was then removed and discarded. Digital compression was held at the access site for hemostasis. Once we were satisfied with hemostasis, appropriate dressing was placed. The patient tolerated the procedure well. The patient remained intubated and was sent back to the ICU in stable, but critical condition. JOB# [id number] EDUIN/MICHAEL
--- NOTE | 2019-05-31 13:14 | Progress Note ---
Assessment and Plan 34 y/o male with acute hypoxic, hypercapnic respiratory failure currently ventilated and sedated, now with persistent fevers and seizure and on HD 05/31/2019: Dropped PEEP down to 12 today. Sats are stable. HD tomorrow per r enal after line holiday and permcath placement by vascular. Fever curve better but patient is also on scheduled tylenol which ends today. Will continue steroids through today and eval tomorrow off scheduled Acetaminophen. Today is day 30 of intubation. Hopeful trial of extubation, maybe even later this week. 1. ID: Patient unable to fit in scanner so CT of head sinus, chest will not happen. ID has placed back on renally adjusted Vanc. he has grown out jarad from urine and a tracheal aspirate 2. Pulm: FIO2 now @ 40%. ABG was good. Will wean after HD today. Can start to come down on PEEP. Will drop to 12 3. Renal: HD per renal, will need permacath per vascular notes if patient can be afebrile. 4. Day number of 30 of intubation. 5. Trying to avoid trach as much as possible. He is on his fourth week of intubation. However still requiring high levels of PEEP. At this point, once weaned to normal PEEP levels, hoping that we can extubate. CCT 31 minutes. Subjective Date of service: 05/31/19 Principal diagnosis: HF; acute hypoxemic resp failure, SIRS, CARLA Interval history: No acute events. Had perm cath placed today. Objective Vital Signs - 12hr 05/31/19 05/31/19 05/31/19 01:30 02:00 02:30 Temperature Pulse Rate 77 71 68 Pulse Rate [ From Monitor] Respiratory 20 16 21 Rate Blood Pressure 141/72 135/63 132/64 O2 Sat by Pulse 96 95 96 Oximetry 05/31/19 05/31/19 05/31/19 03:00 03:17 03:30 Temperature Pulse Rate 82 83 89 Pulse Rate [ From Monitor] Respiratory 18 19 Rate Blood Pressure 147/74 147/74 146/71 O2 Sat by Pulse 94 97 97 Oximetry 05/31/19 05/31/19 05/31/19 04:00 04:30 05:00 Temperature 99.9 F H Pulse Rate 80 74 71 Pulse Rate [ 78 From Monitor] Respiratory 25 H 16 15 Rate Blood Pressure 149/77 150/73 138/64 O2 Sat by Pulse 96 94 95 Oximetry 05/31/19 05/31/19 05/31/19 05:30 06:00 06:30 Temperature Pulse Rate 70 82 75 Pulse Rate [ From Monitor] Respiratory 14 15 15 Rate Blood Pressure 138/64 150/75 149/70 O2 Sat by Pulse 95 93 94 Oximetry 05/31/19 05/31/19 05/31/19 07:00 07:30 07:35 Temperature Pulse Rate 76 91 H 85 Pulse Rate [ From Monitor] Respiratory 17 25 H Rate Blood Pressure 147/73 162/90 147/85 O2 Sat by Pulse 94 93 93 Oximetry 05/31/19 05/31/19 05/31/19 08:00 10:30 10:35 Temperature 99.3 F 97.9 F Pulse Rate 92 H 91 H Pulse Rate [ From Monitor] Respiratory 17 17 Rate Blood Pressure 126/71 125/71 O2 Sat by Pulse 94 90 Oximetry 05/31/19 05/31/19 05/31/19 10:40 10:45 11:00 Temperature Pulse Rate 90 95 H 98 H Pulse Rate [ From Monitor] Respiratory 15 25 H 20 Rate Blood Pressure 132/67 133/72 143/74 O2 Sat by Pulse 91 90 91 Oximetry 05/31/19 11:22 Temperature Pulse Rate 97 H Pulse Rate [ From Monitor] Respiratory Rate Blood Pressure 146/81 O2 Sat by Pulse 94 Oximetry Constitutional: other (morbidly obese male, sedated on vent, orally intubated) Eyes: non-icteric ENT: oropharynx moist Neck: other (extremely large in circumference) Effort: normal Ascultation: Bilateral: diminished breath sounds (secondary to body habitus) Cardiovascular: regular rate and rhythm (no mrg) Gastrointestinal: normoactive bowel sounds, non-tender, other (obese) Integumentary: other (L hand is wrapped) Extremities: no cyanosis, pink and warm, other (1+ generalized edema) Neurologic: unable to assess Psychiatric: other (unable to assess) CBC and BMP: 05/30/19 05:38 05/28/19 12:30 ABG, PT/INR, D-dimer: ABG POC ABG pH 7.357 (7.35-7.45) 05/31/19 04:07 ABG pH 7.284 pH Units (7.350-7.450) L 05/27/19 04:48 POC ABG pCO2 47.4 (35-45) H 05/31/19 04:07 ABG pCO2 53.7 mm Hg 05/27/19 04:48 POC ABG pO2 92 (80-105) 05/31/19 04:07 ABG pO2 71.6 mm Hg (80.0-90.0) L 05/27/19 04:48 POC ABG HCO3 26.6 (22-26 mml/L) 05/31/19 04:07 POC ABG Total CO2 28 (23-27mmol/L) 05/31/19 04:07 POC ABG O2 Sat 97 05/31/19 04:07 ABG O2 Saturation 92.0 % (95.0-99.0) L 05/27/19 04:48 PT/INR, D-dimer PT 15.4 Sec. (12.2-14.9) H 05/01/19 Unknown INR 1.23 (0.87-1.13) H 05/01/19 Unknown Abnormal lab findings: Abnormal Labs 05/01/19 05/01/19 05/01/19 17:50 19:26 22:36 WBC RBC Hgb Hct MCV MCH MCHC RDW Lymph % (Auto) [place] % (Auto) Eos % (Auto) Lymph # [place] # Eos # Seg Neutrophils % Seg Neuts % (Manual) Lymphocytes % (Manual) Monocytes % (Manual) Eosinophils % (Manual) Nucleated RBC % Seg Neutrophils # Seg Neutrophils # Man Lymphocytes # (Manual) Monocytes # (Manual) Eosinophils # (Manual) PT INR APTT POC ABG pH 7.272 L 7.331 L ABG pH POC ABG pCO2 52.8 H POC ABG pO2 ABG pO2 ABG HCO3 ABG O2 Saturation ABG Base Excess ABG Hemoglobin Oxyhemoglobin Sodium 136 L Potassium 6.5 H* Chloride 97.2 L Carbon Dioxide BUN 60 H Creatinine Glucose 113 H POC Glucose Uric Acid Calcium Phosphorus Magnesium 2.40 H AST 139 H ALT 154 H Total Creatine Kinase CK-MB (CK-2) Troponin T NT-Pro-B Natriuret Pep Total Protein Albumin 3.8 L Triglycerides HDL Cholesterol Urine WBC (Auto) Urine Creatinine Urine Total Protein Vancomycin Trough 05/01/19 05/01/19 05/01/19 Unknown Unknown Unknown WBC 16.1 H RBC Hgb Hct MCV MCH MCHC RDW 17.2 H Lymph % (Auto) [place] % (Auto) 9.6 H Eos % (Auto) Lymph # [place] # 1.5 H Eos # Seg Neutrophils % 73.0 H Seg Neuts % (Manual) Lymphocytes % (Manual) Monocytes % (Manual) Eosinophils % (Manual) Nucleated RBC % Seg Neutrophils # 11.7 H Seg Neutrophils # Man Lymphocytes # (Manual) Monocytes # (Manual) Eosinophils # (Manual) PT 15.4 H INR 1.23 H APTT 22.7 L POC ABG pH ABG pH POC ABG pCO2 POC ABG pO2 ABG pO2 ABG HCO3 ABG O2 Saturation ABG Base Excess ABG Hemoglobin Oxyhemoglobin Sodium Potassium Chloride Carbon Dioxide BUN Creatinine Glucose POC Glucose Uric Acid Calcium Phosphorus Magnesium AST ALT Total Creatine Kinase CK-MB (CK-2) Troponin T NT-Pro-B Natriuret Pep 6831 H Total Protein Albumin Triglycerides HDL Cholesterol Urine WBC (Auto) Urine Creatinine Urine Total Protein Vancomycin Trough 05/01/19 05/02/19 05/02/19 Unknown 00:06 00:06 WBC RBC Hgb Hct MCV MCH MCHC RDW Lymph % (Auto) [place] % (Auto) Eos % (Auto) Lymph # [place] # Eos # Seg Neutrophils % Seg Neuts % (Manual) Lymphocytes % (Manual) Monocytes % (Manual) Eosinophils % (Manual) Nucleated RBC % Seg Neutrophils # Seg Neutrophils # Man Lymphocytes # (Manual) Monocytes # (Manual) Eosinophils # (Manual) PT INR APTT POC ABG pH ABG pH POC ABG pCO2 POC ABG pO2 ABG pO2 ABG HCO3 ABG O2 Saturation ABG Base Excess ABG Hemoglobin Oxyhemoglobin Sodium Potassium Chloride Carbon Dioxide BUN Creatinine Glucose POC Glucose Uric Acid Calcium Phosphorus 4.90 H Magnesium AST ALT Total Creatine Kinase 226 H CK-MB (CK-2) 5.7 H Troponin T 0.044 H NT-Pro-B Natriuret Pep Total Protein Albumin Triglycerides 182 H HDL Cholesterol 18 L Urine WBC (Auto) Urine Creatinine Urine Total Protein Vancomycin Trough 05/02/19 05/02/19 05/02/19 02:08 04:40 04:41 WBC 17.6 H RBC Hgb Hct MCV MCH 27 L MCHC RDW 17.4 H Lymph % (Auto) 10.2 L [place] % (Auto) 11.0 H Eos % (Auto) Lymph # [place] # 1.9 H Eos # Seg Neutrophils % 78.0 H Seg Neuts % (Manual) Lymphocytes % (Manual) Monocytes % (Manual) Eosinophils % (Manual) Nucleated RBC % Seg Neutrophils # 13.8 H Seg Neutrophils # Man Lymphocytes # (Manual) Monocytes # (Manual) Eosinophils # (Manual) PT INR APTT POC ABG pH ABG pH POC ABG pCO2 46.8 H POC ABG pO2 63 L ABG pO2 ABG HCO3 ABG O2 Saturation ABG Base Excess ABG Hemoglobin Oxyhemoglobin Sodium Potassium Chloride 96.3 L Carbon Dioxide BUN 63 H Creatinine 1.7 H Glucose POC Glucose Uric Acid Calcium Phosphorus Magnesium AST ALT Total Creatine Kinase CK-MB (CK-2) Troponin T NT-Pro-B Natriuret Pep Total Protein Albumin Triglycerides HDL Cholesterol Urine WBC (Auto) Urine Creatinine Urine Total Protein Vancomycin Trough 05/02/19 05/02/19 05/02/19 04:41 04:41 16:05 WBC RBC Hgb Hct MCV MCH MCHC RDW Lymph % (Auto) [place] % (Auto) Eos % (Auto) Lymph # [place] # Eos # Seg Neutrophils % Seg Neuts % (Manual) Lymphocytes % (Manual) Monocytes % (Manual) Eosinophils % (Manual) Nucleated RBC % Seg Neutrophils # Seg Neutrophils # Man Lymphocytes # (Manual) Monocytes # (Manual) Eosinophils # (Manual) PT INR APTT POC ABG pH ABG pH POC ABG pCO2 POC ABG pO2 ABG pO2 66.6 L ABG HCO3 31.9 H ABG O2 Saturation 92.5 L ABG Base Excess 5.8 H ABG Hemoglobin 13.3 L Oxyhemoglobin 90.6 L Sodium Potassium Chloride 97.2 L Carbon Dioxide BUN 61 H Creatinine 1.8 H Glucose POC Glucose Uric Acid Calcium Phosphorus Magnesium AST ALT Total Creatine Kinase CK-MB (CK-2) 5.2 H Troponin T 0.067 H D NT-Pro-B Natriuret Pep Total Protein Albumin Triglycerides HDL Cholesterol Urine WBC (Auto) Urine Creatinine Urine Total Protein Vancomycin Trough 05/02/19 05/03/19 05/03/19 20:39 04:35 05:05 WBC 11.8 H RBC Hgb Hct MCV MCH 27 L MCHC 31 L RDW 17.2 H Lymph % (Auto) [place] % (Auto) Eos % (Auto) Lymph # [place] # Eos # Seg Neutrophils % Seg Neuts % (Manual) Lymphocytes % (Manual) Monocytes % (Manual) Eosinophils % (Manual) Nucleated RBC % Seg Neutrophils # Seg Neutrophils # Man Lymphocytes # (Manual) Monocytes # (Manual) Eosinophils # (Manual) PT INR APTT POC ABG pH ABG pH POC ABG pCO2 53.6 H 54.0 H POC ABG pO2 55 L 63 L ABG pO2 ABG HCO3 ABG O2 Saturation ABG Base Excess ABG Hemoglobin Oxyhemoglobin Sodium Potassium Chloride Carbon Dioxide BUN Creatinine Glucose POC Glucose Uric Acid Calcium Phosphorus Magnesium AST ALT Total Creatine Kinase CK-MB (CK-2) Troponin T NT-Pro-B Natriuret Pep Total Protein Albumin Triglycerides HDL Cholesterol Urine WBC (Auto) Urine Creatinine Urine Total Protein Vancomycin Trough 05/03/19 05/03/19 05/03/19 05:05 10:55 16:48 WBC RBC Hgb Hct MCV MCH MCHC RDW Lymph % (Auto) [place] % (Auto) Eos % (Auto) Lymph # [place] # Eos # Seg Neutrophils % Seg Neuts % (Manual) Lymphocytes % (Manual) Monocytes % (Manual) Eosinophils % (Manual) Nucleated RBC % Seg Neutrophils # Seg Neutrophils # Man Lymphocytes # (Manual) Monocytes # (Manual) Eosinophils # (Manual) PT INR APTT POC ABG pH 7.604 H ABG pH POC ABG pCO2 POC ABG pO2 58 L ABG pO2 ABG HCO3 ABG O2 Saturation ABG Base Excess ABG Hemoglobin Oxyhemoglobin Sodium Potassium Chloride Carbon Dioxide BUN 52 H Creatinine 1.9 H Glucose 103 H POC Glucose Uric Acid Calcium Phosphorus Magnesium AST ALT Total Creatine Kinase CK-MB (CK-2) Troponin T NT-Pro-B Natriuret Pep Total Protein Albumin Triglycerides HDL Cholesterol Urine WBC (Auto) 33.0 H Urine Creatinine Urine Total Protein Vancomycin Trough 05/04/19 05/04/19 05/04/19 04:49 06:50 06:50 WBC 16.0 H RBC Hgb Hct MCV MCH 27 L MCHC 31 L RDW 17.8 H Lymph % (Auto) [place] % (Auto) Eos % (Auto) Lymph # [place] # Eos # Seg Neutrophils % Seg Neuts % (Manual) Lymphocytes % (Manual) Monocytes % (Manual) Eosinophils % (Manual) Nucleated RBC % Seg Neutrophils # Seg Neutrophils # Man Lymphocytes # (Manual) Monocytes # (Manual) Eosinophils # (Manual) PT INR APTT POC ABG pH 7.273 L ABG pH POC ABG pCO2 POC ABG pO2 ABG pO2 ABG HCO3 ABG O2 Saturation ABG Base Excess ABG Hemoglobin Oxyhemoglobin Sodium 148 H Potassium 5.5 H Chloride Carbon Dioxide BUN 53 H Creatinine 3.3 H D Glucose 106 H POC Glucose Uric Acid Calcium 8.3 L Phosphorus Magnesium AST ALT Total Creatine Kinase CK-MB (CK-2) Troponin T NT-Pro-B Natriuret Pep Total Protein Albumin Triglycerides HDL Cholesterol Urine WBC (Auto) Urine Creatinine Urine Total Protein Vancomycin Trough 05/05/19 05/05/19 05/05/19 00:05 04:30 05:00 WBC RBC Hgb Hct MCV MCH MCHC RDW Lymph % (Auto) [place] % (Auto) Eos % (Auto) Lymph # [place] # Eos # Seg Neutrophils % Seg Neuts % (Manual) Lymphocytes % (Manual) Monocytes % (Manual) Eosinophils % (Manual) Nucleated RBC % Seg Neutrophils # Seg Neutrophils # Man Lymphocytes # (Manual) Monocytes # (Manual) Eosinophils # (Manual) PT INR APTT POC ABG pH 7.225 L ABG pH POC ABG pCO2 > 70 H POC ABG pO2 ABG pO2 ABG HCO3 ABG O2 Saturation ABG Base Excess ABG Hemoglobin Oxyhemoglobin Sodium 151 H Potassium 5.1 H Chloride Carbon Dioxide BUN 64 H Creatinine 3.5 H Glucose 117 H POC Glucose 141 H Uric Acid Calcium 7.5 L Phosphorus Magnesium AST 93 H ALT 65 H Total Creatine Kinase CK-MB (CK-2) Troponin T NT-Pro-B Natriuret Pep Total Protein Albumin 2.9 L Triglycerides HDL Cholesterol Urine WBC (Auto) Urine Creatinine Urine Total Protein Vancomycin Trough 05/05/19 05/05/19 05/05/19 05:00 12:02 17:46 WBC 12.0 H RBC Hgb 11.3 L Hct MCV MCH 27 L MCHC 30 L RDW 18.4 H Lymph % (Auto) 7.9 L [place] % (Auto) 10.2 H Eos % (Auto) Lymph # 1.0 L [place] # 1.2 H Eos # Seg Neutrophils % 80.8 H Seg Neuts % (Manual) Lymphocytes % (Manual) Monocytes % (Manual) Eosinophils % (Manual) Nucleated RBC % Seg Neutrophils # 9.7 H Seg Neutrophils # Man Lymphocytes # (Manual) Monocytes # (Manual) Eosinophils # (Manual) PT INR APTT POC ABG pH ABG pH POC ABG pCO2 POC ABG pO2 ABG pO2 ABG HCO3 ABG O2 Saturation ABG Base Excess ABG Hemoglobin Oxyhemoglobin Sodium Potassium Chloride Carbon Dioxide BUN Creatinine Glucose POC Glucose 125 H 112 H Uric Acid Calcium Phosphorus Magnesium AST ALT Total Creatine Kinase CK-MB (CK-2) Troponin T NT-Pro-B Natriuret Pep Total Protein Albumin Triglycerides HDL Cholesterol Urine WBC (Auto) Urine Creatinine Urine Total Protein Vancomycin Trough 05/05/19 05/06/19 05/06/19 23:42 03:58 04:45 WBC 11.4 H RBC Hgb 10.7 L Hct 34.2 L MCV MCH 27 L MCHC 31 L RDW 16.9 H Lymph % (Auto) [place] % (Auto) Eos % (Auto) Lymph # [place] # Eos # Seg Neutrophils % Seg Neuts % (Manual) Lymphocytes % (Manual) Monocytes % (Manual) Eosinophils % (Manual) Nucleated RBC % Seg Neutrophils # Seg Neutrophils # Man Lymphocytes # (Manual) Monocytes # (Manual) Eosinophils # (Manual) PT INR APTT POC ABG pH ABG pH POC ABG pCO2 62.4 H POC ABG pO2 111 H ABG pO2 ABG HCO3 ABG O2 Saturation ABG Base Excess ABG Hemoglobin Oxyhemoglobin Sodium Potassium Chloride Carbon Dioxide BUN Creatinine Glucose POC Glucose 128 H Uric Acid Calcium Phosphorus Magnesium AST ALT Total Creatine Kinase CK-MB (CK-2) Troponin T NT-Pro-B Natriuret Pep Total Protein Albumin Triglycerides HDL Cholesterol Urine WBC (Auto) Urine Creatinine Urine Total Protein Vancomycin Trough 05/06/19 05/06/19 05/06/19 04:45 05:33 12:30 WBC RBC Hgb Hct MCV MCH MCHC RDW Lymph % (Auto) [place] % (Auto) Eos % (Auto) Lymph # [place] # Eos # Seg Neutrophils % Seg Neuts % (Manual) Lymphocytes % (Manual) Monocytes % (Manual) Eosinophils % (Manual) Nucleated RBC % Seg Neutrophils # Seg Neutrophils # Man Lymphocytes # (Manual) Monocytes # (Manual) Eosinophils # (Manual) PT INR APTT POC ABG pH ABG pH POC ABG pCO2 POC ABG pO2 ABG pO2 ABG HCO3 ABG O2 Saturation ABG Base Excess ABG Hemoglobin Oxyhemoglobin Sodium 149 H Potassium Chloride Carbon Dioxide 31 H BUN 67 H Creatinine 3.2 H Glucose 125 H POC Glucose 117 H 116 H Uric Acid Calcium 7.5 L Phosphorus Magnesium AST ALT Total Creatine Kinase CK-MB (CK-2) Troponin T NT-Pro-B Natriuret Pep Total Protein Albumin Triglycerides HDL Cholesterol Urine WBC (Auto) Urine Creatinine Urine Total Protein Vancomycin Trough 05/06/19 05/06/19 05/07/19 18:34 23:16 05:22 WBC RBC Hgb Hct MCV MCH MCHC RDW Lymph % (Auto) [place] % (Auto) Eos % (Auto) Lymph # [place] # Eos # Seg Neutrophils % Seg Neuts % (Manual) Lymphocytes % (Manual) Monocytes % (Manual) Eosinophils % (Manual) Nucleated RBC % Seg Neutrophils # Seg Neutrophils # Man Lymphocytes # (Manual) Monocytes # (Manual) Eosinophils # (Manual) PT INR APTT POC ABG pH ABG pH POC ABG pCO2 POC ABG pO2 ABG pO2 ABG HCO3 ABG O2 Saturation ABG Base Excess ABG Hemoglobin Oxyhemoglobin Sodium Potassium Chloride Carbon Dioxide BUN Creatinine Glucose POC Glucose 128 H 143 H 166 H Uric Acid Calcium Phosphorus Magnesium AST ALT Total Creatine Kinase CK-MB (CK-2) Troponin T NT-Pro-B Natriuret Pep Total Protein Albumin Triglycerides HDL Cholesterol Urine WBC (Auto) Urine Creatinine Urine Total Protein Vancomycin Trough 05/07/19 05/07/19 05/07/19 06:33 07:03 09:35 WBC RBC Hgb Hct MCV MCH MCHC RDW Lymph % (Auto) [place] % (Auto) Eos % (Auto) Lymph # [place] # Eos # Seg Neutrophils % Seg Neuts % (Manual) Lymphocytes % (Manual) Monocytes % (Manual) Eosinophils % (Manual) Nucleated RBC % Seg Neutrophils # Seg Neutrophils # Man Lymphocytes # (Manual) Monocytes # (Manual) Eosinophils # (Manual) PT INR APTT POC ABG pH 7.263 L 7.288 L ABG pH POC ABG pCO2 POC ABG pO2 51 L 56 L ABG pO2 ABG HCO3 ABG O2 Saturation ABG Base Excess ABG Hemoglobin Oxyhemoglobin Sodium Potassium Chloride Carbon Dioxide BUN 76 H Creatinine 3.2 H Glucose 147 H POC Glucose Uric Acid Calcium 7.9 L Phosphorus Magnesium AST ALT Total Creatine Kinase CK-MB (CK-2) Troponin T NT-Pro-B Natriuret Pep Total Protein Albumin Triglycerides HDL Cholesterol Urine WBC (Auto) Urine Creatinine Urine Total Protein Vancomycin Trough 05/07/19 05/07/19 05/07/19 09:35 12:17 13:45 WBC 13.4 H RBC Hgb 11.6 L Hct MCV MCH 27 L MCHC 31 L RDW 17.5 H Lymph % (Auto) [place] % (Auto) Eos % (Auto) Lymph # [place] # Eos # Seg Neutrophils % Seg Neuts % (Manual) Lymphocytes % (Manual) Monocytes % (Manual) Eosinophils % (Manual) Nucleated RBC % Seg Neutrophils # Seg Neutrophils # Man Lymphocytes # (Manual) Monocytes # (Manual) Eosinophils # (Manual) PT INR APTT POC ABG pH ABG pH POC ABG pCO2 POC ABG pO2 ABG pO2 ABG HCO3 ABG O2 Saturation ABG Base Excess ABG Hemoglobin Oxyhemoglobin Sodium Potassium Chloride Carbon Dioxide BUN Creatinine Glucose POC Glucose 130 H Uric Acid 18.0 H Calcium Phosphorus Magnesium AST ALT Total Creatine Kinase CK-MB (CK-2) Troponin T NT-Pro-B Natriuret Pep Total Protein Albumin Triglycerides HDL Cholesterol Urine WBC (Auto) Urine Creatinine Urine Total Protein Vancomycin Trough 05/07/19 05/07/19 05/08/19 17:39 22:40 05:06 WBC RBC Hgb Hct MCV MCH MCHC RDW Lymph % (Auto) [place] % (Auto) Eos % (Auto) Lymph # [place] # Eos # Seg Neutrophils % Seg Neuts % (Manual) Lymphocytes % (Manual) Monocytes % (Manual) Eosinophils % (Manual) Nucleated RBC % Seg Neutrophils # Seg Neutrophils # Man Lymphocytes # (Manual) Monocytes # (Manual) Eosinophils # (Manual) PT INR APTT POC ABG pH ABG pH POC ABG pCO2 POC ABG pO2 ABG pO2 ABG HCO3 ABG O2 Saturation ABG Base Excess ABG Hemoglobin Oxyhemoglobin Sodium Potassium Chloride Carbon Dioxide BUN Creatinine Glucose POC Glucose 116 H 148 H Uric Acid Calcium Phosphorus Magnesium AST ALT Total Creatine Kinase CK-MB (CK-2) Troponin T NT-Pro-B Natriuret Pep Total Protein Albumin Triglycerides HDL Cholesterol Urine WBC (Auto) Urine Creatinine 292.8 H Urine Total Protein 269 H Vancomycin Trough 05/08/19 05/08/19 05/08/19 05:32 11:28 13:48 WBC RBC Hgb Hct MCV MCH MCHC RDW Lymph % (Auto) [place] % (Auto) Eos % (Auto) Lymph # [place] # Eos # Seg Neutrophils % Seg Neuts % (Manual) Lymphocytes % (Manual) Monocytes % (Manual) Eosinophils % (Manual) Nucleated RBC % Seg Neutrophils # Seg Neutrophils # Man Lymphocytes # (Manual) Monocytes # (Manual) Eosinophils # (Manual) PT INR APTT POC ABG pH ABG pH POC ABG pCO2 45.4 H POC ABG pO2 64 L ABG pO2 ABG HCO3 ABG O2 Saturation ABG Base Excess ABG Hemoglobin Oxyhemoglobin Sodium Potassium Chloride Carbon Dioxide BUN 73 H Creatinine 2.7 H Glucose 127 H POC Glucose 107 H Uric Acid Calcium 7.6 L Phosphorus Magnesium AST ALT Total Creatine Kinase CK-MB (CK-2) Troponin T NT-Pro-B Natriuret Pep Total Protein Albumin Triglycerides HDL Cholesterol Urine WBC (Auto) Urine Creatinine Urine Total Protein Vancomycin Trough 05/08/19 05/09/19 05/09/19 17:48 04:50 04:53 WBC RBC 3.07 L Hgb 8.5 L D Hct 29.3 L D MCV 96 H MCH MCHC 29 L RDW 18.1 H Lymph % (Auto) [place] % (Auto) Eos % (Auto) Lymph # [place] # Eos # Seg Neutrophils % Seg Neuts % (Manual) Lymphocytes % (Manual) Monocytes % (Manual) Eosinophils % (Manual) Nucleated RBC % Seg Neutrophils # Seg Neutrophils # Man Lymphocytes # (Manual) Monocytes # (Manual) Eosinophils # (Manual) PT INR APTT POC ABG pH 7.316 L ABG pH POC ABG pCO2 66.0 H POC ABG pO2 69 L ABG pO2 ABG HCO3 ABG O2 Saturation ABG Base Excess ABG Hemoglobin Oxyhemoglobin Sodium Potassium Chloride Carbon Dioxide BUN Creatinine Glucose POC Glucose 155 H Uric Acid Calcium Phosphorus Magnesium AST ALT Total Creatine Kinase CK-MB (CK-2) Troponin T NT-Pro-B Natriuret Pep Total Protein Albumin Triglycerides HDL Cholesterol Urine WBC (Auto) Urine Creatinine Urine Total Protein Vancomycin Trough 05/09/19 05/09/19 05/09/19 05:46 07:24 12:10 WBC RBC Hgb Hct MCV MCH MCHC RDW Lymph % (Auto) [place] % (Auto) Eos % (Auto) Lymph # [place] # Eos # Seg Neutrophils % Seg Neuts % (Manual) Lymphocytes % (Manual) Monocytes % (Manual) Eosinophils % (Manual) Nucleated RBC % Seg Neutrophils # Seg Neutrophils # Man Lymphocytes # (Manual) Monocytes # (Manual) Eosinophils # (Manual) PT INR APTT POC ABG pH ABG pH POC ABG pCO2 POC ABG pO2 ABG pO2 ABG HCO3 ABG O2 Saturation ABG Base Excess ABG Hemoglobin Oxyhemoglobin Sodium Potassium Chloride Carbon Dioxide BUN 73 H Creatinine 2.4 H Glucose 153 H POC Glucose 123 H 148 H Uric Acid Calcium 8.2 L Phosphorus Magnesium AST 45 H ALT Total Creatine Kinase CK-MB (CK-2) Troponin T NT-Pro-B Natriuret Pep Total Protein 6.0 L Albumin 1.9 L Triglycerides HDL Cholesterol Urine WBC (Auto) Urine Creatinine Urine Total Protein Vancomycin Trough 05/09/19 05/09/19 05/10/19 18:23 23:26 04:52 WBC RBC Hgb Hct MCV MCH MCHC RDW Lymph % (Auto) [place] % (Auto) Eos % (Auto) Lymph # [place] # Eos # Seg Neutrophils % Seg Neuts % (Manual) Lymphocytes % (Manual) Monocytes % (Manual) Eosinophils % (Manual) Nucleated RBC % Seg Neutrophils # Seg Neutrophils # Man Lymphocytes # (Manual) Monocytes # (Manual) Eosinophils # (Manual) PT INR APTT POC ABG pH 7.305 L ABG pH POC ABG pCO2 62.6 H POC ABG pO2 ABG pO2 ABG HCO3 ABG O2 Saturation ABG Base Excess ABG Hemoglobin Oxyhemoglobin Sodium Potassium Chloride Carbon Dioxide BUN Creatinine Glucose POC Glucose 147 H 121 H Uric Acid Calcium Phosphorus Magnesium AST ALT Total Creatine Kinase CK-MB (CK-2) Troponin T NT-Pro-B Natriuret Pep Total Protein Albumin Triglycerides HDL Cholesterol Urine WBC (Auto) Urine Creatinine Urine Total Protein Vancomycin Trough 05/10/19 05/10/19 05/10/19 05:00 05:00 05:50 WBC RBC Hgb 10.3 L Hct 33.7 L MCV MCH 27 L MCHC 31 L RDW 17.0 H Lymph % (Auto) [place] % (Auto) Eos % (Auto) Lymph # [place] # Eos # Seg Neutrophils % Seg Neuts % (Manual) Lymphocytes % (Manual) Monocytes % (Manual) Eosinophils % (Manual) Nucleated RBC % Seg Neutrophils # Seg Neutrophils # Man Lymphocytes # (Manual) Monocytes # (Manual) Eosinophils # (Manual) PT INR APTT POC ABG pH ABG pH POC ABG pCO2 POC ABG pO2 ABG pO2 ABG HCO3 ABG O2 Saturation ABG Base Excess ABG Hemoglobin Oxyhemoglobin Sodium 147 H Potassium Chloride Carbon Dioxide BUN 70 H Creatinine 2.6 H Glucose 155 H POC Glucose 158 H Uric Acid Calcium 8.2 L Phosphorus Magnesium AST ALT Total Creatine Kinase CK-MB (CK-2) Troponin T NT-Pro-B Natriuret Pep Total Protein 6.1 L Albumin 2.5 L Triglycerides HDL Cholesterol Urine WBC (Auto) Urine Creatinine Urine Total Protein Vancomycin Trough 05/10/19 05/11/19 05/11/19 13:14 07:26 11:40 WBC RBC Hgb Hct MCV MCH MCHC RDW Lymph % (Auto) [place] % (Auto) Eos % (Auto) Lymph # [place] # Eos # Seg Neutrophils % Seg Neuts % (Manual) Lymphocytes % (Manual) Monocytes % (Manual) Eosinophils % (Manual) Nucleated RBC % Seg Neutrophils # Seg Neutrophils # Man Lymphocytes # (Manual) Monocytes # (Manual) Eosinophils # (Manual) PT INR APTT POC ABG pH ABG pH POC ABG pCO2 48.0 H POC ABG pO2 58 L ABG pO2 ABG HCO3 ABG O2 Saturation ABG Base Excess ABG Hemoglobin Oxyhemoglobin Sodium 147 H Potassium Chloride 107.2 H Carbon Dioxide BUN 67 H Creatinine 2.6 H Glucose 121 H POC Glucose 159 H Uric Acid Calcium Phosphorus Magnesium AST ALT Total Creatine Kinase CK-MB (CK-2) Troponin T NT-Pro-B Natriuret Pep Total Protein Albumin Triglycerides HDL Cholesterol Urine WBC (Auto) Urine Creatinine Urine Total Protein Vancomycin Trough 05/11/19 05/11/19 05/12/19 18:13 23:46 04:40 WBC RBC Hgb Hct MCV MCH MCHC RDW Lymph % (Auto) [place] % (Auto) Eos % (Auto) Lymph # [place] # Eos # Seg Neutrophils % Seg Neuts % (Manual) Lymphocytes % (Manual) Monocytes % (Manual) Eosinophils % (Manual) Nucleated RBC % Seg Neutrophils # Seg Neutrophils # Man Lymphocytes # (Manual) Monocytes # (Manual) Eosinophils # (Manual) PT INR APTT POC ABG pH ABG pH 7.264 L POC ABG pCO2 POC ABG pO2 ABG pO2 66.8 L ABG HCO3 31.0 H ABG O2 Saturation 92.0 L ABG Base Excess ABG Hemoglobin 10.3 L Oxyhemoglobin 90.1 L Sodium Potassium Chloride Carbon Dioxide BUN Creatinine Glucose POC Glucose 120 H 121 H Uric Acid Calcium Phosphorus Magnesium AST ALT Total Creatine Kinase CK-MB (CK-2) Troponin T NT-Pro-B Natriuret Pep Total Protein Albumin Triglycerides HDL Cholesterol Urine WBC (Auto) Urine Creatinine Urine Total Protein Vancomycin Trough 05/12/19 05/12/19 05/12/19 04:45 04:45 11:14 WBC RBC Hgb 10.2 L Hct 32.4 L MCV MCH MCHC 31 L RDW 17.2 H Lymph % (Auto) [place] % (Auto) Eos % (Auto) Lymph # [place] # Eos # Seg Neutrophils % Seg Neuts % (Manual) Lymphocytes % (Manual) Monocytes % (Manual) Eosinophils % (Manual) Nucleated RBC % Seg Neutrophils # Seg Neutrophils # Man Lymphocytes # (Manual) Monocytes # (Manual) Eosinophils # (Manual) PT INR APTT POC ABG pH 7.284 L ABG pH POC ABG pCO2 67.8 H POC ABG pO2 ABG pO2 ABG HCO3 ABG O2 Saturation ABG Base Excess ABG Hemoglobin Oxyhemoglobin Sodium Potassium Chloride Carbon Dioxide BUN 63 H Creatinine 2.4 H Glucose 110 H POC Glucose Uric Acid Calcium Phosphorus Magnesium AST ALT Total Creatine Kinase CK-MB (CK-2) Troponin T NT-Pro-B Natriuret Pep Total Protein Albumin Triglycerides HDL Cholesterol Urine WBC (Auto) Urine Creatinine Urine Total Protein Vancomycin Trough 05/12/19 05/12/19 05/13/19 11:44 23:11 04:30 WBC RBC Hgb Hct MCV MCH MCHC RDW Lymph % (Auto) [place] % (Auto) Eos % (Auto) Lymph # [place] # Eos # Seg Neutrophils % Seg Neuts % (Manual) Lymphocytes % (Manual) Monocytes % (Manual) Eosinophils % (Manual) Nucleated RBC % Seg Neutrophils # Seg Neutrophils # Man Lymphocytes # (Manual) Monocytes # (Manual) Eosinophils # (Manual) PT INR APTT POC ABG pH ABG pH 7.288 L POC ABG pCO2 POC ABG pO2 ABG pO2 109.7 H ABG HCO3 30.9 H ABG O2 Saturation ABG Base Excess 3.2 H ABG Hemoglobin 9.6 L Oxyhemoglobin Sodium Potassium Chloride Carbon Dioxide BUN Creatinine Glucose POC Glucose 126 H 147 H Uric Acid Calcium Phosphorus Magnesium AST ALT Total Creatine Kinase CK-MB (CK-2) Troponin T NT-Pro-B Natriuret Pep Total Protein Albumin Triglycerides HDL Cholesterol Urine WBC (Auto) Urine Creatinine Urine Total Protein Vancomycin Trough 05/13/19 05/13/19 05/14/19 06:27 11:58 04:00 WBC RBC 3.16 L Hgb 9.3 L Hct 27.9 L MCV MCH MCHC RDW 17.1 H Lymph % (Auto) [place] % (Auto) Eos % (Auto) Lymph # [place] # Eos # Seg Neutrophils % Seg Neuts % (Manual) Lymphocytes % (Manual) Monocytes % (Manual) Eosinophils % (Manual) Nucleated RBC % Seg Neutrophils # Seg Neutrophils # Man Lymphocytes # (Manual) Monocytes # (Manual) Eosinophils # (Manual) PT INR APTT POC ABG pH ABG pH POC ABG pCO2 POC ABG pO2 ABG pO2 ABG HCO3 ABG O2 Saturation ABG Base Excess ABG Hemoglobin Oxyhemoglobin Sodium Potassium Chloride Carbon Dioxide BUN Creatinine Glucose POC Glucose 113 H 130 H Uric Acid Calcium Phosphorus Magnesium AST ALT Total Creatine Kinase CK-MB (CK-2) Troponin T NT-Pro-B Natriuret Pep Total Protein Albumin Triglycerides HDL Cholesterol Urine WBC (Auto) Urine Creatinine Urine Total Protein Vancomycin Trough 05/14/19 05/14/19 05/14/19 04:00 04:34 05:32 WBC RBC Hgb Hct MCV MCH MCHC RDW Lymph % (Auto) [place] % (Auto) Eos % (Auto) Lymph # [place] # Eos # Seg Neutrophils % Seg Neuts % (Manual) Lymphocytes % (Manual) Monocytes % (Manual) Eosinophils % (Manual) Nucleated RBC % Seg Neutrophils # Seg Neutrophils # Man Lymphocytes # (Manual) Monocytes # (Manual) Eosinophils # (Manual) PT INR APTT POC ABG pH 7.328 L ABG pH POC ABG pCO2 61.7 H POC ABG pO2 ABG pO2 ABG HCO3 ABG O2 Saturation ABG Base Excess ABG Hemoglobin Oxyhemoglobin Sodium 135 L D Potassium Chloride Carbon Dioxide BUN 57 H Creatinine 2.2 H Glucose 115 H POC Glucose 115 H Uric Acid Calcium 8.1 L Phosphorus Magnesium AST ALT Total Creatine Kinase CK-MB (CK-2) Troponin T NT-Pro-B Natriuret Pep Total Protein Albumin Triglycerides HDL Cholesterol Urine WBC (Auto) Urine Creatinine Urine Total Protein Vancomycin Trough 05/14/19 05/15/19 05/15/19 12:11 05:10 05:24 WBC RBC Hgb Hct MCV MCH MCHC RDW Lymph % (Auto) [place] % (Auto) Eos % (Auto) Lymph # [place] # Eos # Seg Neutrophils % Seg Neuts % (Manual) Lymphocytes % (Manual) Monocytes % (Manual) Eosinophils % (Manual) Nucleated RBC % Seg Neutrophils # Seg Neutrophils # Man Lymphocytes # (Manual) Monocytes # (Manual) Eosinophils # (Manual) PT INR APTT POC ABG pH ABG pH 7.342 L POC ABG pCO2 POC ABG pO2 ABG pO2 79.1 L ABG HCO3 28.2 H ABG O2 Saturation ABG Base Excess ABG Hemoglobin 7.0 L Oxyhemoglobin 94.4 L Sodium Potassium Chloride Carbon Dioxide BUN Creatinine Glucose POC Glucose 110 H 116 H Uric Acid Calcium Phosphorus Magnesium AST ALT Total Creatine Kinase CK-MB (CK-2) Troponin T NT-Pro-B Natriuret Pep Total Protein Albumin Triglycerides HDL Cholesterol Urine WBC (Auto) Urine Creatinine Urine Total Protein Vancomycin Trough 05/15/19 05/15/19 05/16/19 09:00 18:12 04:50 WBC RBC Hgb Hct MCV MCH MCHC RDW Lymph % (Auto) [place] % (Auto) Eos % (Auto) Lymph # [place] # Eos # Seg Neutrophils % Seg Neuts % (Manual) Lymphocytes % (Manual) Monocytes % (Manual) Eosinophils % (Manual) Nucleated RBC % Seg Neutrophils # Seg Neutrophils # Man Lymphocytes # (Manual) Monocytes # (Manual) Eosinophils # (Manual) PT INR APTT POC ABG pH ABG pH 7.250 L POC ABG pCO2 POC ABG pO2 ABG pO2 76.4 L ABG HCO3 ABG O2 Saturation 94.6 L ABG Base Excess -3.1 L ABG Hemoglobin 9.7 L Oxyhemoglobin 92.4 L Sodium Potassium Chloride Carbon Dioxide BUN Creatinine Glucose POC Glucose 110 H Uric Acid Calcium Phosphorus Magnesium AST ALT Total Creatine Kinase CK-MB (CK-2) Troponin T NT-Pro-B Natriuret Pep Total Protein Albumin Triglycerides HDL Cholesterol Urine WBC (Auto) Urine Creatinine Urine Total Protein Vancomycin Trough 20.5 H 05/16/19 05/16/19 05/17/19 05:50 05:50 04:20 WBC RBC 3.36 L 3.44 L Hgb 9.4 L 9.3 L Hct 29.1 L 29.7 L MCV MCH 27 L MCHC 31 L RDW 17.6 H 17.6 H Lymph % (Auto) [place] % (Auto) Eos % (Auto) Lymph # [place] # Eos # Seg Neutrophils % Seg Neuts % (Manual) 77.0 H Lymphocytes % (Manual) 5.0 L Monocytes % (Manual) Eosinophils % (Manual) 10.0 H Nucleated RBC % Seg Neutrophils # Seg Neutrophils # Man Lymphocytes # (Manual) 0.5 L Monocytes # (Manual) Eosinophils # (Manual) 0.9 H PT INR APTT POC ABG pH ABG pH POC ABG pCO2 POC ABG pO2 ABG pO2 ABG HCO3 ABG O2 Saturation ABG Base Excess ABG Hemoglobin Oxyhemoglobin Sodium Potassium Chloride Carbon Dioxide BUN 83 H Creatinine 4.4 H D Glucose 118 H POC Glucose Uric Acid Calcium Phosphorus Magnesium AST ALT Total Creatine Kinase CK-MB (CK-2) Troponin T NT-Pro-B Natriuret Pep Total Protein Albumin Triglycerides HDL Cholesterol Urine WBC (Auto) Urine Creatinine Urine Total Protein Vancomycin Trough 05/17/19 05/17/19 05/18/19 04:30 Unknown 01:50 WBC RBC 3.49 L Hgb 9.4 L Hct 30.0 L MCV MCH 27 L MCHC 31 L RDW 17.8 H Lymph % (Auto) 7.9 L [place] % (Auto) 15.4 H Eos % (Auto) 6.3 H Lymph # 0.7 L [place] # 1.4 H Eos # 0.6 H Seg Neutrophils % 70.2 H Seg Neuts % (Manual) Lymphocytes % (Manual) Monocytes % (Manual) Eosinophils % (Manual) Nucleated RBC % Seg Neutrophils # Seg Neutrophils # Man Lymphocytes # (Manual) Monocytes # (Manual) Eosinophils # (Manual) PT INR APTT POC ABG pH ABG pH 7.272 L POC ABG pCO2 POC ABG pO2 ABG pO2 75.7 L ABG HCO3 ABG O2 Saturation 93.8 L ABG Base Excess -3.0 L ABG Hemoglobin 7.8 L Oxyhemoglobin 91.6 L Sodium Potassium 5.2 H Chloride Carbon Dioxide BUN 96 H Creatinine 5.7 H Glucose 112 H POC Glucose Uric Acid Calcium Phosphorus Magnesium AST ALT Total Creatine Kinase CK-MB (CK-2) Troponin T NT-Pro-B Natriuret Pep Total Protein Albumin Triglycerides 173 H HDL Cholesterol Urine WBC (Auto) Urine Creatinine Urine Total Protein Vancomycin Trough 05/18/19 05/18/19 05/18/19 01:50 04:41 05:24 WBC RBC Hgb Hct MCV MCH MCHC RDW Lymph % (Auto) [place] % (Auto) Eos % (Auto) Lymph # [place] # Eos # Seg Neutrophils % Seg Neuts % (Manual) Lymphocytes % (Manual) Monocytes % (Manual) Eosinophils % (Manual) Nucleated RBC % Seg Neutrophils # Seg Neutrophils # Man Lymphocytes # (Manual) Monocytes # (Manual) Eosinophils # (Manual) PT INR APTT POC ABG pH 7.260 L ABG pH POC ABG pCO2 54.9 H POC ABG pO2 ABG pO2 ABG HCO3 ABG O2 Saturation ABG Base Excess ABG Hemoglobin Oxyhemoglobin Sodium Potassium 5.6 H Chloride Carbon Dioxide BUN 104 H Creatinine 6.6 H Glucose 107 H POC Glucose 106 H Uric Acid Calcium Phosphorus Magnesium AST ALT Total Creatine Kinase CK-MB (CK-2) Troponin T NT-Pro-B Natriuret Pep Total Protein Albumin Triglycerides HDL Cholesterol Urine WBC (Auto) Urine Creatinine Urine Total Protein Vancomycin Trough 05/18/19 05/18/19 05/19/19 11:34 23:26 04:06 WBC RBC 3.22 L Hgb 8.8 L Hct 27.3 L MCV MCH 27 L MCHC RDW 17.5 H Lymph % (Auto) [place] % (Auto) Eos % (Auto) Lymph # [place] # Eos # Seg Neutrophils % Seg Neuts % (Manual) 74.0 H Lymphocytes % (Manual) 4.0 L Monocytes % (Manual) 11.0 H Eosinophils % (Manual) 7.0 H Nucleated RBC % 1.0 H Seg Neutrophils # Seg Neutrophils # Man Lymphocytes # (Manual) 0.3 L Monocytes # (Manual) 0.9 H Eosinophils # (Manual) 0.6 H PT INR APTT POC ABG pH ABG pH POC ABG pCO2 POC ABG pO2 ABG pO2 ABG HCO3 ABG O2 Saturation ABG Base Excess ABG Hemoglobin Oxyhemoglobin Sodium Potassium Chloride Carbon Dioxide BUN Creatinine Glucose POC Glucose 152 H 112 H Uric Acid Calcium Phosphorus Magnesium AST ALT Total Creatine Kinase CK-MB (CK-2) Troponin T NT-Pro-B Natriuret Pep Total Protein Albumin Triglycerides HDL Cholesterol Urine WBC (Auto) Urine Creatinine Urine Total Protein Vancomycin Trough 05/19/19 05/19/19 05/20/19 04:06 06:00 04:00 WBC RBC 3.40 L Hgb 9.2 L Hct 28.6 L MCV MCH 27 L MCHC RDW 17.6 H Lymph % (Auto) [place] % (Auto) Eos % (Auto) Lymph # [place] # Eos # Seg Neutrophils % Seg Neuts % (Manual) Lymphocytes % (Manual) 11.0 L Monocytes % (Manual) Eosinophils % (Manual) 14.0 H Nucleated RBC % Seg Neutrophils # Seg Neutrophils # Man Lymphocytes # (Manual) 1.1 L Monocytes # (Manual) Eosinophils # (Manual) 1.4 H PT INR APTT POC ABG pH ABG pH 7.315 L POC ABG pCO2 POC ABG pO2 ABG pO2 ABG HCO3 ABG O2 Saturation ABG Base Excess ABG Hemoglobin 6.7 L Oxyhemoglobin 94.1 L Sodium Potassium 5.2 H Chloride Carbon Dioxide 21 L BUN 110 H Creatinine 7.2 H Glucose POC Glucose Uric Acid Calcium 8.3 L Phosphorus Magnesium AST ALT Total Creatine Kinase CK-MB (CK-2) Troponin T NT-Pro-B Natriuret Pep Total Protein Albumin Triglycerides HDL Cholesterol Urine WBC (Auto) Urine Creatinine Urine Total Protein Vancomycin Trough 05/20/19 05/20/19 05/20/19 04:00 05:48 12:00 WBC RBC Hgb Hct MCV MCH MCHC RDW Lymph % (Auto) [place] % (Auto) Eos % (Auto) Lymph # [place] # Eos # Seg Neutrophils % Seg Neuts % (Manual) Lymphocytes % (Manual) Monocytes % (Manual) Eosinophils % (Manual) Nucleated RBC % Seg Neutrophils # Seg Neutrophils # Man Lymphocytes # (Manual) Monocytes # (Manual) Eosinophils # (Manual) PT INR APTT POC ABG pH ABG pH 7.281 L POC ABG pCO2 POC ABG pO2 ABG pO2 78.7 L ABG HCO3 ABG O2 Saturation 94.5 L ABG Base Excess -3.0 L ABG Hemoglobin 9.9 L Oxyhemoglobin 92.5 L Sodium 136 L Potassium 5.7 H Chloride 96.3 L Carbon Dioxide BUN 125 H Creatinine 8.3 H Glucose 106 H POC Glucose Uric Acid Calcium Phosphorus Magnesium AST ALT Total Creatine Kinase CK-MB (CK-2) Troponin T NT-Pro-B Natriuret Pep Total Protein Albumin Triglycerides HDL Cholesterol Urine WBC (Auto) 26.0 H Urine Creatinine Urine Total Protein Vancomycin Trough 05/21/19 05/21/19 05/21/19 04:33 05:20 Unknown WBC RBC 3.38 L Hgb 9.1 L Hct 28.5 L MCV MCH 27 L MCHC RDW 17.4 H Lymph % (Auto) [place] % (Auto) Eos % (Auto) Lymph # [place] # Eos # Seg Neutrophils % Seg Neuts % (Manual) 71.0 H Lymphocytes % (Manual) 1.0 L Monocytes % (Manual) 11.0 H Eosinophils % (Manual) 6.0 H Nucleated RBC % Seg Neutrophils # Seg Neutrophils # Man Lymphocytes # (Manual) 0.1 L Monocytes # (Manual) 1.0 H Eosinophils # (Manual) 0.6 H PT INR APTT POC ABG pH 7.315 L ABG pH POC ABG pCO2 57.8 H POC ABG pO2 68 L ABG pO2 ABG HCO3 ABG O2 Saturation ABG Base Excess ABG Hemoglobin Oxyhemoglobin Sodium Potassium Chloride 96.3 L Carbon Dioxide BUN 102 H Creatinine 7.0 H Glucose 103 H POC Glucose Uric Acid Calcium Phosphorus Magnesium AST ALT Total Creatine Kinase CK-MB (CK-2) Troponin T NT-Pro-B Natriuret Pep Total Protein Albumin Triglycerides HDL Cholesterol Urine WBC (Auto) Urine Creatinine Urine Total Protein Vancomycin Trough 05/22/19 05/22/19 05/22/19 03:54 06:25 06:25 WBC RBC 3.22 L Hgb 8.6 L Hct 27.0 L MCV MCH 27 L MCHC RDW 17.5 H Lymph % (Auto) [place] % (Auto) 16.2 H Eos % (Auto) 10.8 H Lymph # [place] # 1.3 H Eos # 0.9 H Seg Neutrophils % Seg Neuts % (Manual) Lymphocytes % (Manual) 10.0 L Monocytes % (Manual) 13.0 H Eosinophils % (Manual) 8.0 H Nucleated RBC % Seg Neutrophils # Seg Neutrophils # Man Lymphocytes # (Manual) 0.9 L Monocytes # (Manual) 1.1 H Eosinophils # (Manual) 0.7 H PT INR APTT POC ABG pH 7.313 L ABG pH POC ABG pCO2 55.0 H POC ABG pO2 ABG pO2 ABG HCO3 ABG O2 Saturation ABG Base Excess ABG Hemoglobin Oxyhemoglobin Sodium 135 L Potassium Chloride 94.3 L Carbon Dioxide BUN 117 H Creatinine 7.8 H Glucose POC Glucose Uric Acid Calcium 8.2 L Phosphorus Magnesium AST ALT Total Creatine Kinase CK-MB (CK-2) Troponin T NT-Pro-B Natriuret Pep Total Protein Albumin Triglycerides HDL Cholesterol Urine WBC (Auto) Urine Creatinine Urine Total Protein Vancomycin Trough 05/23/19 05/24/19 05/24/19 05:21 05:00 05:00 WBC RBC 3.18 L Hgb 8.5 L Hct 26.7 L MCV MCH 27 L MCHC RDW 17.9 H Lymph % (Auto) [place] % (Auto) Eos % (Auto) Lymph # [place] # Eos # Seg Neutrophils % Seg Neuts % (Manual) Lymphocytes % (Manual) Monocytes % (Manual) Eosinophils % (Manual) Nucleated RBC % Seg Neutrophils # Seg Neutrophils # Man Lymphocytes # (Manual) Monocytes # (Manual) Eosinophils # (Manual) PT INR APTT POC ABG pH ABG pH POC ABG pCO2 49.7 H POC ABG pO2 73 L ABG pO2 ABG HCO3 ABG O2 Saturation ABG Base Excess ABG Hemoglobin Oxyhemoglobin Sodium Potassium Chloride 95.7 L Carbon Dioxide BUN 97 H Creatinine 6.5 H Glucose POC Glucose Uric Acid Calcium 8.0 L Phosphorus Magnesium AST ALT Total Creatine Kinase CK-MB (CK-2) Troponin T NT-Pro-B Natriuret Pep Total Protein Albumin Triglycerides HDL Cholesterol Urine WBC (Auto) Urine Creatinine Urine Total Protein Vancomycin Trough 05/24/19 05/25/19 05/25/19 06:17 04:22 15:45 WBC RBC 2.98 L Hgb 8.1 L Hct 24.9 L MCV MCH 27 L MCHC RDW 17.8 H Lymph % (Auto) [place] % (Auto) Eos % (Auto) Lymph # [place] # Eos # Seg Neutrophils % Seg Neuts % (Manual) Lymphocytes % (Manual) Monocytes % (Manual) Eosinophils % (Manual) Nucleated RBC % Seg Neutrophils # Seg Neutrophils # Man Lymphocytes # (Manual) Monocytes # (Manual) Eosinophils # (Manual) PT INR APTT POC ABG pH 7.330 L 7.313 L ABG pH POC ABG pCO2 52.5 H 51.1 H POC ABG pO2 77 L ABG pO2 ABG HCO3 ABG O2 Saturation ABG Base Excess ABG Hemoglobin Oxyhemoglobin Sodium Potassium Chloride Carbon Dioxide BUN Creatinine Glucose POC Glucose Uric Acid Calcium Phosphorus Magnesium AST ALT Total Creatine Kinase CK-MB (CK-2) Troponin T NT-Pro-B Natriuret Pep Total Protein Albumin Triglycerides HDL Cholesterol Urine WBC (Auto) Urine Creatinine Urine Total Protein Vancomycin Trough 05/25/19 05/26/19 05/26/19 15:45 04:13 05:00 WBC RBC 3.10 L Hgb 8.4 L Hct 26.0 L MCV MCH 27 L MCHC RDW 17.4 H Lymph % (Auto) [place] % (Auto) Eos % (Auto) Lymph # [place] # Eos # Seg Neutrophils % Seg Neuts % (Manual) Lymphocytes % (Manual) Monocytes % (Manual) Eosinophils % (Manual) Nucleated RBC % Seg Neutrophils # Seg Neutrophils # Man Lymphocytes # (Manual) Monocytes # (Manual) Eosinophils # (Manual) PT INR APTT POC ABG pH 7.295 L ABG pH POC ABG pCO2 56.5 H POC ABG pO2 63 L ABG pO2 ABG HCO3 ABG O2 Saturation ABG Base Excess ABG Hemoglobin Oxyhemoglobin Sodium 136 L Potassium Chloride 96.8 L Carbon Dioxide BUN 83 H Creatinine 5.9 H Glucose POC Glucose Uric Acid Calcium 7.6 L Phosphorus Magnesium AST ALT Total Creatine Kinase CK-MB (CK-2) Troponin T NT-Pro-B Natriuret Pep Total Protein Albumin Triglycerides HDL Cholesterol Urine WBC (Auto) Urine Creatinine Urine Total Protein Vancomycin Trough 05/26/19 05/27/19 05/28/19 05:00 04:48 04:47 WBC RBC Hgb Hct MCV MCH MCHC RDW Lymph % (Auto) [place] % (Auto) Eos % (Auto) Lymph # [place] # Eos # Seg Neutrophils % Seg Neuts % (Manual) Lymphocytes % (Manual) Monocytes % (Manual) Eosinophils % (Manual) Nucleated RBC % Seg Neutrophils # Seg Neutrophils # Man Lymphocytes # (Manual) Monocytes # (Manual) Eosinophils # (Manual) PT INR APTT POC ABG pH 7.323 L ABG pH 7.284 L POC ABG pCO2 56.2 H POC ABG pO2 ABG pO2 71.6 L ABG HCO3 ABG O2 Saturation 92.0 L ABG Base Excess ABG Hemoglobin 7.7 L Oxyhemoglobin 89.9 L Sodium 136 L Potassium Chloride 95.3 L Carbon Dioxide BUN 96 H Creatinine 6.5 H Glucose 108 H POC Glucose Uric Acid Calcium 7.6 L Phosphorus Magnesium AST ALT Total Creatine Kinase CK-MB (CK-2) Troponin T NT-Pro-B Natriuret Pep Total Protein Albumin Triglycerides HDL Cholesterol Urine WBC (Auto) Urine Creatinine Urine Total Protein Vancomycin Trough 05/28/19 05/29/19 05/29/19 12:30 12:47 23:44 WBC RBC Hgb Hct MCV MCH MCHC RDW Lymph % (Auto) [place] % (Auto) Eos % (Auto) Lymph # [place] # Eos # Seg Neutrophils % Seg Neuts % (Manual) Lymphocytes % (Manual) Monocytes % (Manual) Eosinophils % (Manual) Nucleated RBC % Seg Neutrophils # Seg Neutrophils # Man Lymphocytes # (Manual) Monocytes # (Manual) Eosinophils # (Manual) PT INR APTT POC ABG pH ABG pH POC ABG pCO2 POC ABG pO2 ABG pO2 ABG HCO3 ABG O2 Saturation ABG Base Excess ABG Hemoglobin Oxyhemoglobin Sodium 135 L Potassium Chloride 95.3 L Carbon Dioxide BUN 82 H Creatinine 6.0 H Glucose POC Glucose 136 H 159 H Uric Acid Calcium 7.5 L Phosphorus Magnesium AST ALT Total Creatine Kinase CK-MB (CK-2) Troponin T NT-Pro-B Natriuret Pep Total Protein Albumin Triglycerides HDL Cholesterol Urine WBC (Auto) Urine Creatinine Urine Total Protein Vancomycin Trough 05/30/19 05/30/19 05/30/19 04:30 05:38 12:00 WBC RBC 3.01 L Hgb 8.2 L Hct 25.3 L MCV MCH 27 L MCHC RDW 17.5 H Lymph % (Auto) [place] % (Auto) Eos % (Auto) Lymph # [place] # Eos # Seg Neutrophils % Seg Neuts % (Manual) 80.0 H Lymphocytes % (Manual) 10.0 L Monocytes % (Manual) Eosinophils % (Manual) Nucleated RBC % Seg Neutrophils # Seg Neutrophils # Man 8.0 H Lymphocytes # (Manual) 1.0 L Monocytes # (Manual) Eosinophils # (Manual) PT INR APTT POC ABG pH ABG pH POC ABG pCO2 POC ABG pO2 73 L ABG pO2 ABG HCO3 ABG O2 Saturation ABG Base Excess ABG Hemoglobin Oxyhemoglobin Sodium Potassium Chloride Carbon Dioxide BUN Creatinine Glucose POC Glucose 166 H Uric Acid Calcium Phosphorus Magnesium AST ALT Total Creatine Kinase CK-MB (CK-2) Troponin T NT-Pro-B Natriuret Pep Total Protein Albumin Triglycerides HDL Cholesterol Urine WBC (Auto) Urine Creatinine Urine Total Protein Vancomycin Trough 05/30/19 05/31/19 23:45 04:07 WBC RBC Hgb Hct MCV MCH MCHC RDW Lymph % (Auto) [place] % (Auto) Eos % (Auto) Lymph # [place] # Eos # Seg Neutrophils % Seg Neuts % (Manual) Lymphocytes % (Manual) Monocytes % (Manual) Eosinophils % (Manual) Nucleated RBC % Seg Neutrophils # Seg Neutrophils # Man Lymphocytes # (Manual) Monocytes # (Manual) Eosinophils # (Manual) PT INR APTT POC ABG pH ABG pH POC ABG pCO2 47.4 H POC ABG pO2 ABG pO2 ABG HCO3 ABG O2 Saturation ABG Base Excess ABG Hemoglobin Oxyhemoglobin Sodium Potassium Chloride Carbon Dioxide BUN Creatinine Glucose POC Glucose 209 H Uric Acid Calcium Phosphorus Magnesium AST ALT Total Creatine Kinase CK-MB (CK-2) Troponin T NT-Pro-B Natriuret Pep Total Protein Albumin Triglycerides HDL Cholesterol Urine WBC (Auto) Urine Creatinine Urine Total Protein Vancomycin Trough
[2019-05-31 13:16] LABS: Hematocrit 23.9 % (35.5-45.6); Hemoglobin 7.7 gm/dl (11.8-15.2); Mean Corpuscular HGB Conc 32 % (32-34); Mean Corpuscular Volume 83 fl (84-94); Platelet Count 265 K/mm3 (140-440); Red Blood Count 2.88 M/mm3 (3.65-5.03); Red Cell Distribution Width 17.8 % (13.2-15.2)
[2019-05-31 13:39] LABS: Albumin 2.5 g/dL (3.9-5); Calcium 7.4 mg/dL (8.4-10.2)
[2019-05-31 14:08] LABS: Anisocytosis Few; Basophils % (Manual) 0 % (0.0-1.8); Eosinophils % (Manual) 0 % (0.0-4.3); Large Platelets Rare; Platelet Estimate Consistent w Auto; Total Cells Counted 100
[2019-05-31] MEDS: ENOXAPARIN 30 MG/0.3 ML INJ SUB-Q SCH (14:16)
[2019-05-31] MEDS: FAMOTIDINE 20 MG TAB PO SCH (14:17)
[2019-05-31] MEDS: levETIRAcetam 500 MG/5 ML ORAL LIQD PO SCH ×2 (14:17→22:33)
--- NOTE | 2019-05-31 19:24 | XRay Report ---
ABDOMEN 1 VIEW 6:26 PM INDICATION / CLINICAL INFORMATION: Confirm OGT. COMPARISON: 05/08/2019. FINDINGS: TUBES / LINES: The tip of the orogastric tube is just below the gastroesophageal junction. The proxim al sidehole overlies the distal esophagus. BOWEL GAS PATTERN: No significant abnormality. FREE AIR / EXTRALUMINAL GAS: None seen. ADDITIONAL FINDINGS: No significant additional findings. IMPRESSION:The tip of the orogastric tube is just below the gastroesophageal junction. The tube will need to be advanced further into the stomach. Signer Name: Malcom Tran MD Signed: 05/31/2019 7:20 PM Workstation Name: [id number]
--- NOTE | 2019-05-31 22:07 | XRay Report ---
ABDOMEN 1 VIEW 9:34 PM INDICATION / CLINICAL INFORMATION: Tube placement. COMPARISON: Earlier today at 6:26 PM. FINDINGS: TUBES / LINES: The nasogastric tube has been advanced with the tip now overlying the distal stomach o r duodenal bulb. BOWEL GAS PATTERN: No significant abnormality. FREE AIR / EXTRALUMINAL GAS: None seen. ADDITIONAL FINDINGS: No significant additional findings. IMPRESSION: The nasogastric tube tip now overlies the distal stomach or duodenal bulb. Signer Name: Malcom Tran MD Signed: 05/31/2019 10:03 PM Workstation Name: [id number]
[2019-06-01 04:43] LABS: ABG Base Excess -0.7 mmol/L (-2.0-3.0); ABG HCO3 24.4 mmol/L (20.0-26.0); ABG Methemoglobin 0.5 % (0.0-1.5); ABG Oxygen Saturation 85.9 % (95.0-99.0); ABG PCO2 42.7 mm Hg; ABG PH 7.375 pH Units (7.350-7.450); ABG PO2 56.9 mm Hg (80.0-90.0)
[2019-06-01] MEDS: methylPREDNISolone Sod Succinate 125 MG/2 ML INJ IV SCH ×3 (05:04→21:56)
--- NOTE | 2019-06-01 08:21 | Progress Note ---
Subjective Principal diagnosis: HF; acute hypoxemic resp failure, SIRS, CARLA Interval history: Patient was seen today for follow-up on multiple renal related issues Events of this hospitalization were noted atient remains intubated, remains dialysis dependent Has been initiated on renal placement therapy due to acute renal failure likely due to vancomycin toxicity Interdisciplinary notes were also reviewed Vitals intake output medications were reviewed Past medical history: Reviewed Family, social history: Reviewed Allergies: Reviewed Physical examination General: No acute distress Vitals: Reviewed HEENT: Oral mucosa moist no icterus Neck: Supple no thyromegaly nodular mass or JVD Chest: Clear to auscultation anteriorly Heart: Regular rate and rhythm S1-S2 heard no S3-S4 Abdomen: Soft nontender no suprapubic masses no organomegaly Extremity: Dry skin less than 1+ edema Psych: No evidence of any agitation and aggression noted Derm: No petechial rash Assessment and plan: Acute kidney injury: Multifactorial in etiology most likely due to vancomycin toxicity currently dialysis dependent, possibility of acute tubular necrosis cannot be ruled out, he is currently on Friday and Friday schedule, depending on his labs we may consider adding another treatment tomorrow Will like to increase his dialysis time to 4-1/2 hours given his large BMI possibly may consider adding 1 more treatment, making it possibly for per week as tolerated She currently does have a permacath that was placed yesterday Will need daily labs at least CBC and a basic metabolic profile periodically will check phosphorus and magnesium Hyperkalemia: To monitor and follow Patient was admitted here with sepsis respiratory failure and hypotension Continue to monitor renal function hemodialysis only as required Anemia and the setting of renal failure: Continue to monitor periodically may require packed red blood cell transfusion as well as erythropoietin Encephalopathy: Multifactorial, also does have seizure disorder respiratory failure and fever Renal prognosis remains very guarded at this time Multiple underlying comorbidities including, cardiac arrest, encephalopathy, obesity hypoventilation, sepsis, seizure activity, congestive heart failure, respiratory failure We'll continue to follow and make recommendation from renal standpoint Objective - Vital Signs Vital signs: Vital Signs - 12hr 05/31/19 05/31/19 05/31/19 21:00 21:15 22:00 Temperature Pulse Rate 95 H 97 H Respiratory 27 H 28 H Rate Blood Pressure 150/93 150/93 150/93 O2 Sat by Pulse 90 93 90 Oximetry 05/31/19 05/31/19 05/31/19 22:35 23:00 23:23 Temperature 98.6 F Pulse Rate 87 77 Respiratory 18 Rate Blood Pressure 151/86 146/79 O2 Sat by Pulse 91 Oximetry 05/31/19 06/01/19 06/01/19 23:54 00:00 01:00 Temperature Pulse Rate 75 94 H 86 Respiratory 29 H 19 Rate Blood Pressure 146/79 151/89 155/93 O2 Sat by Pulse 96 92 94 Oximetry 06/01/19 06/01/19 06/01/19 02:00 03:00 03:32 Temperature 98.9 F Pulse Rate 99 H 90 Respiratory 18 30 H Rate Blood Pressure 145/86 158/88 O2 Sat by Pulse 94 94 Oximetry 06/01/19 06/01/19 06/01/19 04:00 04:30 05:01 Temperature Pulse Rate 87 89 88 Respiratory 31 H 26 H Rate Blood Pressure 154/92 154/92 162/98 O2 Sat by Pulse 93 95 94 Oximetry 06/01/19 06/01/19 06/01/19 05:03 06:00 07:00 Temperature Pulse Rate 86 87 87 Respiratory 29 H 24 Rate Blood Pressure 162/98 172/97 156/66 O2 Sat by Pulse 93 94 Oximetry 06/01/19 08:15 Temperature Pulse Rate 87 Respiratory Rate Blood Pressure 156/66 O2 Sat by Pulse 94 Oximetry - Lab 05/31/19 13:04 05/31/19 13:04 Most recent lab results ABG pH 7.375 pH Units (7.350-7.450) 06/01/19 04:33 ABG pCO2 42.7 mm Hg 06/01/19 04:33 ABG pO2 56.9 mm Hg (80.0-90.0) L 06/01/19 04:33 ABG HCO3 24.4 mmol/L (20.0-26.0) 06/01/19 04:33 ABG O2 Saturation 85.9 % (95.0-99.0) L 06/01/19 04:33 Calcium 7.4 mg/dL (8.4-10.2) L 05/31/19 13:04 Phosphorus 7.40 mg/dL (2.5-4.5) H 05/31/19 13:04 Magnesium 1.90 mg/dL (1.7-2.3) 05/31/19 13:04 Urine Creatinine 292.8 mg/dL (0.1-20.0) H 05/07/19 22:40 Urine Sodium 11 mmol/L 05/07/19 22:40 Urine Total Protein 269 mg/dL (5-11.8) H 05/07/19 22:40 Medications & Allergies - Medications Allergies/Adverse Reactions: Allergies No Known Allergies Allergy (Verified 05/01/19 20:27) Home Medications: Home Medications Medication Instructions Recorded Confirmed Last Taken Type No Known Home Medications [No 05/03/19 05/03/19 Unknown History Reported Home Medications] Active Medications: Generic Name Dose Route Start Last Admin Trade Name Freq PRN Reason Stop Dose Admin Albumin Human 25 gm 05/19/19 10:47 Alburx 25% (Albumin) IV ARIANE PRN Hypotension Alteplase, Recombinant 2 mg 05/25/19 09:30 05/28/19 21:15 Cathflo IV 2 mg ARIANE PRN Administration LINE FLUSH Lipase/Protease/Amylase 1 each 05/14/19 15:[address] 10,500 Unit FEEDTUBE PRN PRN For Clogged Feeding Tube Dextrose 50 gm 05/01/19 20:24 D50w (25gm) Vial IV Q30MIN PRN Hypoglycemia Protocol Enoxaparin Sodium 30 mg 05/16/19 10:00 05/31/19 14:16 Enoxaparin SUB-Q 30 mg QDAY VICKEY Administration Epoetin Hugo 10,000 unit 05/19/19 10:47 05/29/19 12:53 Procrit IV 10,000 unit ARIANE PRN Administration hemodialysis Famotidine 20 mg 05/16/19 10:00 05/31/19 14:17 Pepcid PO 20 mg DAILY VICKEY Administration Hydralazine HCl 20 mg 05/13/19 08:09 05/14/19 18:09 Apresoline IV 20 mg Q4HR PRN Administration SBP >/=160 Hydrophilic Ointment 1 applic 05/01/19 21:14 Vaseline Lip Therapy TP Q2HR PRN Dry Lips Fentanyl Citrate 2,000 mcg in 100 mls @ 10.195 mls/hr 05/01/19 22:00 05/31/19 22:45 Fentanyl Drip Premix IV 1 mcg/kg/hr TITR VICKEY 10.195 mls/hr Administration Protocol 1 MCG/KG/HR Propofol 1,000 mg in 100 mls @ 7.011 mls/hr 05/03/19 04:00 06/01/19 05:02 Diprivan 10 Mg/Ml IV 5 mcg/kg/min TITR VICKEY 7.011 mls/hr Administration Protocol 5 MCG/KG/MIN Sodium Chloride 500 mls @ 10 mls/hr 05/06/19 15:00 Nacl 0.9% 500 Ml IV DIRECT VICKEY Sodium Chloride 100 mls @ 999 mls/hr 05/19/19 10:47 05/20/19 08:14 Nacl 0.9% IV 999 mls/hr ARIANE PRN Administration Hypotension Labetalol HCl 100 mg 05/14/19 14:00 06/01/19 05:03 Labetalol PO 100 mg Q8HR VICKEY Administration Levetiracetam 750 mg 05/13/19 10:00 05/31/19 22:33 Keppra PO 750 mg BID VICKEY Administration Lorazepam 2 mg 05/06/19 06:22 05/10/19 16:17 Ativan IV 2 mg Q4H PRN Administration Seizures/AGITATION Methylprednisolone Sodium Succinate 125 mg 05/29/19 14:00 06/01/19 05:04 Solu-Medrol IV 125 mg Q8HR VICKEY Administration Multi-Ingred Cream/Lotion/Oil/Oint 1 applic 05/01/19 21:14 Artificial Tears Ophth Oint OU Q4HR PRN Dry Eye(s) Ondansetron HCl 4 mg 05/01/19 22:46 Zofran IV Q8H PRN Nausea And Vomiting Scopolamine 1 each 05/20/19 12:00 05/20/19 12:52 Transderm-Scop TD 1 each Q72HR VICKEY Administration Simple Syrup 15 ml 05/14/19 15:01 Simple Syrup FEEDTUBE PRN PRN Hypoglycemia Simple Syrup 30 ml 05/14/19 15:01 Simple Syrup FEEDTUBE PRN PRN Hypoglycemia Sodium Bicarbonate 325 mg 05/14/19 15:01 Sodium Bicarbonate FEEDTUBE PRN PRN For Clogged Feeding Tube Sodium Chloride 10 ml 05/02/19 10:00 05/31/19 22:37 Sodium Chloride Flush Syringe 10 Ml IV 10 ml BID VICKEY Administration Sodium Chloride 10 ml 05/01/19 22:46 05/05/19 02:28 Sodium Chloride Flush Syringe 10 Ml IV 10 ml PRN PRN Administration LINE FLUSH
--- NOTE | 2019-06-01 08:42 | Progress Note ---
Assessment and Plan 34 y/o male with acute hypoxic, hypercapnic respiratory failure currently ventilated and sedated, now with persistent fevers and seizure and on HD 06/01/2019: PEEP down to 12 today, will keep here until after HD. Sats are sta ble. HD today per renal after line holiday and permcath placement by vascular. Fever curve better but patient is also on scheduled tylenol which ends today. Will continue steroids today, will start to wean tomorrow. Today is day 31 of intubation. Hopeful trial of extubation, maybe even later this week. 1. ID: Patient unable to fit in scanner so CT of head sinus, chest will not happen. ID has placed back on renally adjusted Vanc. he has grown out jarad from urine and a tracheal aspirate 2. Pulm: FIO2 now @ 40%. ABG was good. Will wean after HD today. Can start to come down on PEEP. Will drop to 12 3. Renal: HD per renal, will need permacath per vascular notes if patient can be afebrile. 4. Day number of 31 of intubation. 5. Trying to avoid trach as much as possible. He is on his fourth week of intubation. However still requiring high levels of PEEP. At this point, once weaned to normal PEEP levels, hoping that we can extubate. CCT 31 minutes. Subjective Date of service: 06/01/19 Principal diagnosis: HF; acute hypoxemic resp failure, SIRS, CARLA Interval history: no acute events. Remains on 12 of PEEP and 30%. PaO2 was 56 this am. Scheduled for HD for today. spoke with renal. Fent is off. Objective Vital Signs - 12hr 05/31/19 05/31/19 05/31/19 21:00 21:15 22:00 Temperature Pulse Rate 95 H 97 H Respiratory 27 H 28 H Rate Blood Pressure 150/93 150/93 150/93 O2 Sat by Pulse 90 93 90 Oximetry 05/31/19 05/31/19 05/31/19 22:35 23:00 23:23 Temperature 98.6 F Pulse Rate 87 77 Respiratory 18 Rate Blood Pressure 151/86 146/79 O2 Sat by Pulse 91 Oximetry 05/31/19 06/01/19 06/01/19 23:54 00:00 01:00 Temperature Pulse Rate 75 94 H 86 Respiratory 29 H 19 Rate Blood Pressure 146/79 151/89 155/93 O2 Sat by Pulse 96 92 94 Oximetry 06/01/19 06/01/19 06/01/19 02:00 03:00 03:32 Temperature 98.9 F Pulse Rate 99 H 90 Respiratory 18 30 H Rate Blood Pressure 145/86 158/88 O2 Sat by Pulse 94 94 Oximetry 06/01/19 06/01/19 06/01/19 04:00 04:30 05:01 Temperature Pulse Rate 87 89 88 Respiratory 31 H 26 H Rate Blood Pressure 154/92 154/92 162/98 O2 Sat by Pulse 93 95 94 Oximetry 06/01/19 06/01/19 06/01/19 05:03 06:00 07:00 Temperature Pulse Rate 86 87 87 Respiratory 29 H 24 Rate Blood Pressure 162/98 172/97 156/66 O2 Sat by Pulse 93 94 Oximetry 06/01/19 06/01/19 08:00 08:15 Temperature 100.3 F H Pulse Rate 87 Respiratory Rate Blood Pressure 156/66 O2 Sat by Pulse 94 Oximetry Constitutional: other (morbidly obese male, sedated on vent, orally intubated) Eyes: non-icteric ENT: oropharynx moist Neck: other (extremely large in circumference) Effort: normal Ascultation: Bilateral: diminished breath sounds (secondary to body habitus) Cardiovascular: regular rate and rhythm (no mrg) Gastrointestinal: normoactive bowel sounds, non-tender, other (obese) Integumentary: other (L hand is wrapped) Extremities: no cyanosis, pink and warm, other (1+ generalized edema) Neurologic: unable to assess Psychiatric: other (unable to assess) CBC and BMP: 05/31/19 13:04 05/31/19 13:04 ABG, PT/INR, D-dimer: ABG POC ABG pH 7.357 (7.35-7.45) 05/31/19 04:07 ABG pH 7.375 pH Units (7.350-7.450) 06/01/19 04:33 POC ABG pCO2 47.4 (35-45) H 05/31/19 04:07 ABG pCO2 42.7 mm Hg 06/01/19 04:33 POC ABG pO2 92 (80-105) 05/31/19 04:07 ABG pO2 56.9 mm Hg (80.0-90.0) L 06/01/19 04:33 POC ABG HCO3 26.6 (22-26 mml/L) 05/31/19 04:07 POC ABG Total CO2 28 (23-27mmol/L) 05/31/19 04:07 POC ABG O2 Sat 97 05/31/19 04:07 ABG O2 Saturation 85.9 % (95.0-99.0) L 06/01/19 04:33 PT/INR, D-dimer PT 15.4 Sec. (12.2-14.9) H 05/01/19 Unknown INR 1.23 (0.87-1.13) H 05/01/19 Unknown Abnormal lab findings: Abnormal Labs 05/01/19 05/01/19 05/01/19 17:50 19:26 22:36 WBC RBC Hgb Hct MCV MCH MCHC RDW Lymph % (Auto) Howell % (Auto) Eos % (Auto) Lymph # Howell # Eos # Seg Neutrophils % Seg Neuts % (Manual) Lymphocytes % (Manual) Monocytes % (Manual) Eosinophils % (Manual) Nucleated RBC % Seg Neutrophils # Seg Neutrophils # Man Lymphocytes # (Manual) Monocytes # (Manual) Eosinophils # (Manual) PT INR APTT POC ABG pH 7.272 L 7.331 L ABG pH POC ABG pCO2 52.8 H POC ABG pO2 ABG pO2 ABG HCO3 ABG O2 Saturation ABG Base Excess ABG Hemoglobin Oxyhemoglobin Sodium 136 L Potassium 6.5 H* Chloride 97.2 L Carbon Dioxide BUN 60 H Creatinine Glucose 113 H POC Glucose Uric Acid Calcium Phosphorus Magnesium 2.40 H AST 139 H ALT 154 H Total Creatine Kinase CK-MB (CK-2) Troponin T NT-Pro-B Natriuret Pep Total Protein Albumin 3.8 L Triglycerides HDL Cholesterol Urine WBC (Auto) Urine Creatinine Urine Total Protein Vancomycin Trough 05/01/19 05/01/19 05/01/19 Unknown Unknown Unknown WBC 16.1 H RBC Hgb Hct MCV MCH MCHC RDW 17.2 H Lymph % (Auto) Howell % (Auto) 9.6 H Eos % (Auto) Lymph # Howell # 1.5 H Eos # Seg Neutrophils % 73.0 H Seg Neuts % (Manual) Lymphocytes % (Manual) Monocytes % (Manual) Eosinophils % (Manual) Nucleated RBC % Seg Neutrophils # 11.7 H Seg Neutrophils # Man Lymphocytes # (Manual) Monocytes # (Manual) Eosinophils # (Manual) PT 15.4 H INR 1.23 H APTT 22.7 L POC ABG pH ABG pH POC ABG pCO2 POC ABG pO2 ABG pO2 ABG HCO3 ABG O2 Saturation ABG Base Excess ABG Hemoglobin Oxyhemoglobin Sodium Potassium Chloride Carbon Dioxide BUN Creatinine Glucose POC Glucose Uric Acid Calcium Phosphorus Magnesium AST ALT Total Creatine Kinase CK-MB (CK-2) Troponin T NT-Pro-B Natriuret Pep 6831 H Total Protein Albumin Triglycerides HDL Cholesterol Urine WBC (Auto) Urine Creatinine Urine Total Protein Vancomycin Trough 05/01/19 05/02/19 05/02/19 Unknown 00:06 00:06 WBC RBC Hgb Hct MCV MCH MCHC RDW Lymph % (Auto) Howell % (Auto) Eos % (Auto) Lymph # [place]ell # Eos # Seg Neutrophils % Seg Neuts % (Manual) Lymphocytes % (Manual) Monocytes % (Manual) Eosinophils % (Manual) Nucleated RBC % Seg Neutrophils # Seg Neutrophils # Man Lymphocytes # (Manual) Monocytes # (Manual) Eosinophils # (Manual) PT INR APTT POC ABG pH ABG pH POC ABG pCO2 POC ABG pO2 ABG pO2 ABG HCO3 ABG O2 Saturation ABG Base Excess ABG Hemoglobin Oxyhemoglobin Sodium Potassium Chloride Carbon Dioxide BUN Creatinine Glucose POC Glucose Uric Acid Calcium Phosphorus 4.90 H Magnesium AST ALT Total Creatine Kinase 226 H CK-MB (CK-2) 5.7 H Troponin T 0.044 H NT-Pro-B Natriuret Pep Total Protein Albumin Triglycerides 182 H HDL Cholesterol 18 L Urine WBC (Auto) Urine Creatinine Urine Total Protein Vancomycin Trough 05/02/19 05/02/19 05/02/19 02:08 04:40 04:41 WBC 17.6 H RBC Hgb Hct MCV MCH 27 L MCHC RDW 17.4 H Lymph % (Auto) 10.2 L Howell % (Auto) 11.0 H Eos % (Auto) Lymph # Howell # 1.9 H Eos # Seg Neutrophils % 78.0 H Seg Neuts % (Manual) Lymphocytes % (Manual) Monocytes % (Manual) Eosinophils % (Manual) Nucleated RBC % Seg Neutrophils # 13.8 H Seg Neutrophils # Man Lymphocytes # (Manual) Monocytes # (Manual) Eosinophils # (Manual) PT INR APTT POC ABG pH ABG pH POC ABG pCO2 46.8 H POC ABG pO2 63 L ABG pO2 ABG HCO3 ABG O2 Saturation ABG Base Excess ABG Hemoglobin Oxyhemoglobin Sodium Potassium Chloride 96.3 L Carbon Dioxide BUN 63 H Creatinine 1.7 H Glucose POC Glucose Uric Acid Calcium Phosphorus Magnesium AST ALT Total Creatine Kinase CK-MB (CK-2) Troponin T NT-Pro-B Natriuret Pep Total Protein Albumin Triglycerides HDL Cholesterol Urine WBC (Auto) Urine Creatinine Urine Total Protein Vancomycin Trough 05/02/19 05/02/19 05/02/19 04:41 04:41 16:05 WBC RBC Hgb Hct MCV MCH MCHC RDW Lymph % (Auto) Howell % (Auto) Eos % (Auto) Lymph # [place] # Eos # Seg Neutrophils % Seg Neuts % (Manual) Lymphocytes % (Manual) Monocytes % (Manual) Eosinophils % (Manual) Nucleated RBC % Seg Neutrophils # Seg Neutrophils # Man Lymphocytes # (Manual) Monocytes # (Manual) Eosinophils # (Manual) PT INR APTT POC ABG pH ABG pH POC ABG pCO2 POC ABG pO2 ABG pO2 66.6 L ABG HCO3 31.9 H ABG O2 Saturation 92.5 L ABG Base Excess 5.8 H ABG Hemoglobin 13.3 L Oxyhemoglobin 90.6 L Sodium Potassium Chloride 97.2 L Carbon Dioxide BUN 61 H Creatinine 1.8 H Glucose POC Glucose Uric Acid Calcium Phosphorus Magnesium AST ALT Total Creatine Kinase CK-MB (CK-2) 5.2 H Troponin T 0.067 H D NT-Pro-B Natriuret Pep Total Protein Albumin Triglycerides HDL Cholesterol Urine WBC (Auto) Urine Creatinine Urine Total Protein Vancomycin Trough 05/02/19 05/03/19 05/03/19 20:39 04:35 05:05 WBC 11.8 H RBC Hgb Hct MCV MCH 27 L MCHC 31 L RDW 17.2 H Lymph % (Auto) Howell % (Auto) Eos % (Auto) Lymph # [place] # Eos # Seg Neutrophils % Seg Neuts % (Manual) Lymphocytes % (Manual) Monocytes % (Manual) Eosinophils % (Manual) Nucleated RBC % Seg Neutrophils # Seg Neutrophils # Man Lymphocytes # (Manual) Monocytes # (Manual) Eosinophils # (Manual) PT INR APTT POC ABG pH ABG pH POC ABG pCO2 53.6 H 54.0 H POC ABG pO2 55 L 63 L ABG pO2 ABG HCO3 ABG O2 Saturation ABG Base Excess ABG Hemoglobin Oxyhemoglobin Sodium Potassium Chloride Carbon Dioxide BUN Creatinine Glucose POC Glucose Uric Acid Calcium Phosphorus Magnesium AST ALT Total Creatine Kinase CK-MB (CK-2) Troponin T NT-Pro-B Natriuret Pep Total Protein Albumin Triglycerides HDL Cholesterol Urine WBC (Auto) Urine Creatinine Urine Total Protein Vancomycin Trough 05/03/19 05/03/19 05/03/19 05:05 10:55 16:48 WBC RBC Hgb Hct MCV MCH MCHC RDW Lymph % (Auto) Howell % (Auto) Eos % (Auto) Lymph # [place] # Eos # Seg Neutrophils % Seg Neuts % (Manual) Lymphocytes % (Manual) Monocytes % (Manual) Eosinophils % (Manual) Nucleated RBC % Seg Neutrophils # Seg Neutrophils # Man Lymphocytes # (Manual) Monocytes # (Manual) Eosinophils # (Manual) PT INR APTT POC ABG pH 7.604 H ABG pH POC ABG pCO2 POC ABG pO2 58 L ABG pO2 ABG HCO3 ABG O2 Saturation ABG Base Excess ABG Hemoglobin Oxyhemoglobin Sodium Potassium Chloride Carbon Dioxide BUN 52 H Creatinine 1.9 H Glucose 103 H POC Glucose Uric Acid Calcium Phosphorus Magnesium AST ALT Total Creatine Kinase CK-MB (CK-2) Troponin T NT-Pro-B Natriuret Pep Total Protein Albumin Triglycerides HDL Cholesterol Urine WBC (Auto) 33.0 H Urine Creatinine Urine Total Protein Vancomycin Trough 05/04/19 05/04/19 05/04/19 04:49 06:50 06:50 WBC 16.0 H RBC Hgb Hct MCV MCH 27 L MCHC 31 L RDW 17.8 H Lymph % (Auto) Howell % (Auto) Eos % (Auto) Lymph # [place] # Eos # Seg Neutrophils % Seg Neuts % (Manual) Lymphocytes % (Manual) Monocytes % (Manual) Eosinophils % (Manual) Nucleated RBC % Seg Neutrophils # Seg Neutrophils # Man Lymphocytes # (Manual) Monocytes # (Manual) Eosinophils # (Manual) PT INR APTT POC ABG pH 7.273 L ABG pH POC ABG pCO2 POC ABG pO2 ABG pO2 ABG HCO3 ABG O2 Saturation ABG Base Excess ABG Hemoglobin Oxyhemoglobin Sodium 148 H Potassium 5.5 H Chloride Carbon Dioxide BUN 53 H Creatinine 3.3 H D Glucose 106 H POC Glucose Uric Acid Calcium 8.3 L Phosphorus Magnesium AST ALT Total Creatine Kinase CK-MB (CK-2) Troponin T NT-Pro-B Natriuret Pep Total Protein Albumin Triglycerides HDL Cholesterol Urine WBC (Auto) Urine Creatinine Urine Total Protein Vancomycin Trough 05/05/19 05/05/19 05/05/19 00:05 04:30 05:00 WBC RBC Hgb Hct MCV MCH MCHC RDW Lymph % (Auto) [place] % (Auto) Eos % (Auto) Lymph # [place] # Eos # Seg Neutrophils % Seg Neuts % (Manual) Lymphocytes % (Manual) Monocytes % (Manual) Eosinophils % (Manual) Nucleated RBC % Seg Neutrophils # Seg Neutrophils # Man Lymphocytes # (Manual) Monocytes # (Manual) Eosinophils # (Manual) PT INR APTT POC ABG pH 7.225 L ABG pH POC ABG pCO2 > 70 H POC ABG pO2 ABG pO2 ABG HCO3 ABG O2 Saturation ABG Base Excess ABG Hemoglobin Oxyhemoglobin Sodium 151 H Potassium 5.1 H Chloride Carbon Dioxide BUN 64 H Creatinine 3.5 H Glucose 117 H POC Glucose 141 H Uric Acid Calcium 7.5 L Phosphorus Magnesium AST 93 H ALT 65 H Total Creatine Kinase CK-MB (CK-2) Troponin T NT-Pro-B Natriuret Pep Total Protein Albumin 2.9 L Triglycerides HDL Cholesterol Urine WBC (Auto) Urine Creatinine Urine Total Protein Vancomycin Trough 05/05/19 05/05/19 05/05/19 05:00 12:02 17:46 WBC 12.0 H RBC Hgb 11.3 L Hct MCV MCH 27 L MCHC 30 L RDW 18.4 H Lymph % (Auto) 7.9 L [place]ell % (Auto) 10.2 H Eos % (Auto) Lymph # 1.0 L [place]ell # 1.2 H Eos # Seg Neutrophils % 80.8 H Seg Neuts % (Manual) Lymphocytes % (Manual) Monocytes % (Manual) Eosinophils % (Manual) Nucleated RBC % Seg Neutrophils # 9.7 H Seg Neutrophils # Man Lymphocytes # (Manual) Monocytes # (Manual) Eosinophils # (Manual) PT INR APTT POC ABG pH ABG pH POC ABG pCO2 POC ABG pO2 ABG pO2 ABG HCO3 ABG O2 Saturation ABG Base Excess ABG Hemoglobin Oxyhemoglobin Sodium Potassium Chloride Carbon Dioxide BUN Creatinine Glucose POC Glucose 125 H 112 H Uric Acid Calcium Phosphorus Magnesium AST ALT Total Creatine Kinase CK-MB (CK-2) Troponin T NT-Pro-B Natriuret Pep Total Protein Albumin Triglycerides HDL Cholesterol Urine WBC (Auto) Urine Creatinine Urine Total Protein Vancomycin Trough 05/05/19 05/06/19 05/06/19 23:42 03:58 04:45 WBC 11.4 H RBC Hgb 10.7 L Hct 34.2 L MCV MCH 27 L MCHC 31 L RDW 16.9 H Lymph % (Auto) Howell % (Auto) Eos % (Auto) Lymph # [place] # Eos # Seg Neutrophils % Seg Neuts % (Manual) Lymphocytes % (Manual) Monocytes % (Manual) Eosinophils % (Manual) Nucleated RBC % Seg Neutrophils # Seg Neutrophils # Man Lymphocytes # (Manual) Monocytes # (Manual) Eosinophils # (Manual) PT INR APTT POC ABG pH ABG pH POC ABG pCO2 62.4 H POC ABG pO2 111 H ABG pO2 ABG HCO3 ABG O2 Saturation ABG Base Excess ABG Hemoglobin Oxyhemoglobin Sodium Potassium Chloride Carbon Dioxide BUN Creatinine Glucose POC Glucose 128 H Uric Acid Calcium Phosphorus Magnesium AST ALT Total Creatine Kinase CK-MB (CK-2) Troponin T NT-Pro-B Natriuret Pep Total Protein Albumin Triglycerides HDL Cholesterol Urine WBC (Auto) Urine Creatinine Urine Total Protein Vancomycin Trough 05/06/19 05/06/19 05/06/19 04:45 05:33 12:30 WBC RBC Hgb Hct MCV MCH MCHC RDW Lymph % (Auto) How[place] % (Auto) Eos % (Auto) Lymph # [place] # Eos # Seg Neutrophils % Seg Neuts % (Manual) Lymphocytes % (Manual) Monocytes % (Manual) Eosinophils % (Manual) Nucleated RBC % Seg Neutrophils # Seg Neutrophils # Man Lymphocytes # (Manual) Monocytes # (Manual) Eosinophils # (Manual) PT INR APTT POC ABG pH ABG pH POC ABG pCO2 POC ABG pO2 ABG pO2 ABG HCO3 ABG O2 Saturation ABG Base Excess ABG Hemoglobin Oxyhemoglobin Sodium 149 H Potassium Chloride Carbon Dioxide 31 H BUN 67 H Creatinine 3.2 H Glucose 125 H POC Glucose 117 H 116 H Uric Acid Calcium 7.5 L Phosphorus Magnesium AST ALT Total Creatine Kinase CK-MB (CK-2) Troponin T NT-Pro-B Natriuret Pep Total Protein Albumin Triglycerides HDL Cholesterol Urine WBC (Auto) Urine Creatinine Urine Total Protein Vancomycin Trough 05/06/19 05/06/19 05/07/19 18:34 23:16 05:22 WBC RBC Hgb Hct MCV MCH MCHC RDW Lymph % (Auto) Howell % (Auto) Eos % (Auto) Lymph # [place] # Eos # Seg Neutrophils % Seg Neuts % (Manual) Lymphocytes % (Manual) Monocytes % (Manual) Eosinophils % (Manual) Nucleated RBC % Seg Neutrophils # Seg Neutrophils # Man Lymphocytes # (Manual) Monocytes # (Manual) Eosinophils # (Manual) PT INR APTT POC ABG pH ABG pH POC ABG pCO2 POC ABG pO2 ABG pO2 ABG HCO3 ABG O2 Saturation ABG Base Excess ABG Hemoglobin Oxyhemoglobin Sodium Potassium Chloride Carbon Dioxide BUN Creatinine Glucose POC Glucose 128 H 143 H 166 H Uric Acid Calcium Phosphorus Magnesium AST ALT Total Creatine Kinase CK-MB (CK-2) Troponin T NT-Pro-B Natriuret Pep Total Protein Albumin Triglycerides HDL Cholesterol Urine WBC (Auto) Urine Creatinine Urine Total Protein Vancomycin Trough 05/07/19 05/07/19 05/07/19 06:33 07:03 09:35 WBC RBC Hgb Hct MCV MCH MCHC RDW Lymph % (Auto) Howell % (Auto) Eos % (Auto) Lymph # [place] # Eos # Seg Neutrophils % Seg Neuts % (Manual) Lymphocytes % (Manual) Monocytes % (Manual) Eosinophils % (Manual) Nucleated RBC % Seg Neutrophils # Seg Neutrophils # Man Lymphocytes # (Manual) Monocytes # (Manual) Eosinophils # (Manual) PT INR APTT POC ABG pH 7.263 L 7.288 L ABG pH POC ABG pCO2 POC ABG pO2 51 L 56 L ABG pO2 ABG HCO3 ABG O2 Saturation ABG Base Excess ABG Hemoglobin Oxyhemoglobin Sodium Potassium Chloride Carbon Dioxide BUN 76 H Creatinine 3.2 H Glucose 147 H POC Glucose Uric Acid Calcium 7.9 L Phosphorus Magnesium AST ALT Total Creatine Kinase CK-MB (CK-2) Troponin T NT-Pro-B Natriuret Pep Total Protein Albumin Triglycerides HDL Cholesterol Urine WBC (Auto) Urine Creatinine Urine Total Protein Vancomycin Trough 05/07/19 05/07/19 05/07/19 09:35 12:17 13:45 WBC 13.4 H RBC Hgb 11.6 L Hct MCV MCH 27 L MCHC 31 L RDW 17.5 H Lymph % (Auto) [place] % (Auto) Eos % (Auto) Lymph # [place] # Eos # Seg Neutrophils % Seg Neuts % (Manual) Lymphocytes % (Manual) Monocytes % (Manual) Eosinophils % (Manual) Nucleated RBC % Seg Neutrophils # Seg Neutrophils # Man Lymphocytes # (Manual) Monocytes # (Manual) Eosinophils # (Manual) PT INR APTT POC ABG pH ABG pH POC ABG pCO2 POC ABG pO2 ABG pO2 ABG HCO3 ABG O2 Saturation ABG Base Excess ABG Hemoglobin Oxyhemoglobin Sodium Potassium Chloride Carbon Dioxide BUN Creatinine Glucose POC Glucose 130 H Uric Acid 18.0 H Calcium Phosphorus Magnesium AST ALT Total Creatine Kinase CK-MB (CK-2) Troponin T NT-Pro-B Natriuret Pep Total Protein Albumin Triglycerides HDL Cholesterol Urine WBC (Auto) Urine Creatinine Urine Total Protein Vancomycin Trough 05/07/19 05/07/19 05/08/19 17:39 22:40 05:06 WBC RBC Hgb Hct MCV MCH MCHC RDW Lymph % (Auto) [place] % (Auto) Eos % (Auto) Lymph # [place] # Eos # Seg Neutrophils % Seg Neuts % (Manual) Lymphocytes % (Manual) Monocytes % (Manual) Eosinophils % (Manual) Nucleated RBC % Seg Neutrophils # Seg Neutrophils # Man Lymphocytes # (Manual) Monocytes # (Manual) Eosinophils # (Manual) PT INR APTT POC ABG pH ABG pH POC ABG pCO2 POC ABG pO2 ABG pO2 ABG HCO3 ABG O2 Saturation ABG Base Excess ABG Hemoglobin Oxyhemoglobin Sodium Potassium Chloride Carbon Dioxide BUN Creatinine Glucose POC Glucose 116 H 148 H Uric Acid Calcium Phosphorus Magnesium AST ALT Total Creatine Kinase CK-MB (CK-2) Troponin T NT-Pro-B Natriuret Pep Total Protein Albumin Triglycerides HDL Cholesterol Urine WBC (Auto) Urine Creatinine 292.8 H Urine Total Protein 269 H Vancomycin Trough 05/08/19 05/08/19 05/08/19 05:32 11:28 13:48 WBC RBC Hgb Hct MCV MCH MCHC RDW Lymph % (Auto) [place] % (Auto) Eos % (Auto) Lymph # [place] # Eos # Seg Neutrophils % Seg Neuts % (Manual) Lymphocytes % (Manual) Monocytes % (Manual) Eosinophils % (Manual) Nucleated RBC % Seg Neutrophils # Seg Neutrophils # Man Lymphocytes # (Manual) Monocytes # (Manual) Eosinophils # (Manual) PT INR APTT POC ABG pH ABG pH POC ABG pCO2 45.4 H POC ABG pO2 64 L ABG pO2 ABG HCO3 ABG O2 Saturation ABG Base Excess ABG Hemoglobin Oxyhemoglobin Sodium Potassium Chloride Carbon Dioxide BUN 73 H Creatinine 2.7 H Glucose 127 H POC Glucose 107 H Uric Acid Calcium 7.6 L Phosphorus Magnesium AST ALT Total Creatine Kinase CK-MB (CK-2) Troponin T NT-Pro-B Natriuret Pep Total Protein Albumin Triglycerides HDL Cholesterol Urine WBC (Auto) Urine Creatinine Urine Total Protein Vancomycin Trough 05/08/19 05/09/19 05/09/19 17:48 04:50 04:53 WBC RBC 3.07 L Hgb 8.5 L D Hct 29.3 L D MCV 96 H MCH MCHC 29 L RDW 18.1 H Lymph % (Auto) [place] % (Auto) Eos % (Auto) Lymph # [place] # Eos # Seg Neutrophils % Seg Neuts % (Manual) Lymphocytes % (Manual) Monocytes % (Manual) Eosinophils % (Manual) Nucleated RBC % Seg Neutrophils # Seg Neutrophils # Man Lymphocytes # (Manual) Monocytes # (Manual) Eosinophils # (Manual) PT INR APTT POC ABG pH 7.316 L ABG pH POC ABG pCO2 66.0 H POC ABG pO2 69 L ABG pO2 ABG HCO3 ABG O2 Saturation ABG Base Excess ABG Hemoglobin Oxyhemoglobin Sodium Potassium Chloride Carbon Dioxide BUN Creatinine Glucose POC Glucose 155 H Uric Acid Calcium Phosphorus Magnesium AST ALT Total Creatine Kinase CK-MB (CK-2) Troponin T NT-Pro-B Natriuret Pep Total Protein Albumin Triglycerides HDL Cholesterol Urine WBC (Auto) Urine Creatinine Urine Total Protein Vancomycin Trough 05/09/19 05/09/19 05/09/19 05:46 07:24 12:10 WBC RBC Hgb Hct MCV MCH MCHC RDW Lymph % (Auto) [place] % (Auto) Eos % (Auto) Lymph # [place] # Eos # Seg Neutrophils % Seg Neuts % (Manual) Lymphocytes % (Manual) Monocytes % (Manual) Eosinophils % (Manual) Nucleated RBC % Seg Neutrophils # Seg Neutrophils # Man Lymphocytes # (Manual) Monocytes # (Manual) Eosinophils # (Manual) PT INR APTT POC ABG pH ABG pH POC ABG pCO2 POC ABG pO2 ABG pO2 ABG HCO3 ABG O2 Saturation ABG Base Excess ABG Hemoglobin Oxyhemoglobin Sodium Potassium Chloride Carbon Dioxide BUN 73 H Creatinine 2.4 H Glucose 153 H POC Glucose 123 H 148 H Uric Acid Calcium 8.2 L Phosphorus Magnesium AST 45 H ALT Total Creatine Kinase CK-MB (CK-2) Troponin T NT-Pro-B Natriuret Pep Total Protein 6.0 L Albumin 1.9 L Triglycerides HDL Cholesterol Urine WBC (Auto) Urine Creatinine Urine Total Protein Vancomycin Trough 05/09/19 05/09/19 05/10/19 18:23 23:26 04:52 WBC RBC Hgb Hct MCV MCH MCHC RDW Lymph % (Auto) [place] % (Auto) Eos % (Auto) Lymph # [place] # Eos # Seg Neutrophils % Seg Neuts % (Manual) Lymphocytes % (Manual) Monocytes % (Manual) Eosinophils % (Manual) Nucleated RBC % Seg Neutrophils # Seg Neutrophils # Man Lymphocytes # (Manual) Monocytes # (Manual) Eosinophils # (Manual) PT INR APTT POC ABG pH 7.305 L ABG pH POC ABG pCO2 62.6 H POC ABG pO2 ABG pO2 ABG HCO3 ABG O2 Saturation ABG Base Excess ABG Hemoglobin Oxyhemoglobin Sodium Potassium Chloride Carbon Dioxide BUN Creatinine Glucose POC Glucose 147 H 121 H Uric Acid Calcium Phosphorus Magnesium AST ALT Total Creatine Kinase CK-MB (CK-2) Troponin T NT-Pro-B Natriuret Pep Total Protein Albumin Triglycerides HDL Cholesterol Urine WBC (Auto) Urine Creatinine Urine Total Protein Vancomycin Trough 05/10/19 05/10/19 05/10/19 05:00 05:00 05:50 WBC RBC Hgb 10.3 L Hct 33.7 L MCV MCH 27 L MCHC 31 L RDW 17.0 H Lymph % (Auto) [place] % (Auto) Eos % (Auto) Lymph # [place] # Eos # Seg Neutrophils % Seg Neuts % (Manual) Lymphocytes % (Manual) Monocytes % (Manual) Eosinophils % (Manual) Nucleated RBC % Seg Neutrophils # Seg Neutrophils # Man Lymphocytes # (Manual) Monocytes # (Manual) Eosinophils # (Manual) PT INR APTT POC ABG pH ABG pH POC ABG pCO2 POC ABG pO2 ABG pO2 ABG HCO3 ABG O2 Saturation ABG Base Excess ABG Hemoglobin Oxyhemoglobin Sodium 147 H Potassium Chloride Carbon Dioxide BUN 70 H Creatinine 2.6 H Glucose 155 H POC Glucose 158 H Uric Acid Calcium 8.2 L Phosphorus Magnesium AST ALT Total Creatine Kinase CK-MB (CK-2) Troponin T NT-Pro-B Natriuret Pep Total Protein 6.1 L Albumin 2.5 L Triglycerides HDL Cholesterol Urine WBC (Auto) Urine Creatinine Urine Total Protein Vancomycin Trough 05/10/19 05/11/19 05/11/19 13:14 07:26 11:40 WBC RBC Hgb Hct MCV MCH MCHC RDW Lymph % (Auto) Howell % (Auto) Eos % (Auto) Lymph # [place] # Eos # Seg Neutrophils % Seg Neuts % (Manual) Lymphocytes % (Manual) Monocytes % (Manual) Eosinophils % (Manual) Nucleated RBC % Seg Neutrophils # Seg Neutrophils # Man Lymphocytes # (Manual) Monocytes # (Manual) Eosinophils # (Manual) PT INR APTT POC ABG pH ABG pH POC ABG pCO2 48.0 H POC ABG pO2 58 L ABG pO2 ABG HCO3 ABG O2 Saturation ABG Base Excess ABG Hemoglobin Oxyhemoglobin Sodium 147 H Potassium Chloride 107.2 H Carbon Dioxide BUN 67 H Creatinine 2.6 H Glucose 121 H POC Glucose 159 H Uric Acid Calcium Phosphorus Magnesium AST ALT Total Creatine Kinase CK-MB (CK-2) Troponin T NT-Pro-B Natriuret Pep Total Protein Albumin Triglycerides HDL Cholesterol Urine WBC (Auto) Urine Creatinine Urine Total Protein Vancomycin Trough 05/11/19 05/11/19 05/12/19 18:13 23:46 04:40 WBC RBC Hgb Hct MCV MCH MCHC RDW Lymph % (Auto) [place] % (Auto) Eos % (Auto) Lymph # [place] # Eos # Seg Neutrophils % Seg Neuts % (Manual) Lymphocytes % (Manual) Monocytes % (Manual) Eosinophils % (Manual) Nucleated RBC % Seg Neutrophils # Seg Neutrophils # Man Lymphocytes # (Manual) Monocytes # (Manual) Eosinophils # (Manual) PT INR APTT POC ABG pH ABG pH 7.264 L POC ABG pCO2 POC ABG pO2 ABG pO2 66.8 L ABG HCO3 31.0 H ABG O2 Saturation 92.0 L ABG Base Excess ABG Hemoglobin 10.3 L Oxyhemoglobin 90.1 L Sodium Potassium Chloride Carbon Dioxide BUN Creatinine Glucose POC Glucose 120 H 121 H Uric Acid Calcium Phosphorus Magnesium AST ALT Total Creatine Kinase CK-MB (CK-2) Troponin T NT-Pro-B Natriuret Pep Total Protein Albumin Triglycerides HDL Cholesterol Urine WBC (Auto) Urine Creatinine Urine Total Protein Vancomycin Trough 05/12/19 05/12/19 05/12/19 04:45 04:45 11:14 WBC RBC Hgb 10.2 L Hct 32.4 L MCV MCH MCHC 31 L RDW 17.2 H Lymph % (Auto) [place] % (Auto) Eos % (Auto) Lymph # [place] # Eos # Seg Neutrophils % Seg Neuts % (Manual) Lymphocytes % (Manual) Monocytes % (Manual) Eosinophils % (Manual) Nucleated RBC % Seg Neutrophils # Seg Neutrophils # Man Lymphocytes # (Manual) Monocytes # (Manual) Eosinophils # (Manual) PT INR APTT POC ABG pH 7.284 L ABG pH POC ABG pCO2 67.8 H POC ABG pO2 ABG pO2 ABG HCO3 ABG O2 Saturation ABG Base Excess ABG Hemoglobin Oxyhemoglobin Sodium Potassium Chloride Carbon Dioxide BUN 63 H Creatinine 2.4 H Glucose 110 H POC Glucose Uric Acid Calcium Phosphorus Magnesium AST ALT Total Creatine Kinase CK-MB (CK-2) Troponin T NT-Pro-B Natriuret Pep Total Protein Albumin Triglycerides HDL Cholesterol Urine WBC (Auto) Urine Creatinine Urine Total Protein Vancomycin Trough 05/12/19 05/12/19 05/13/19 11:44 23:11 04:30 WBC RBC Hgb Hct MCV MCH MCHC RDW Lymph % (Auto) [place] % (Auto) Eos % (Auto) Lymph # [place] # Eos # Seg Neutrophils % Seg Neuts % (Manual) Lymphocytes % (Manual) Monocytes % (Manual) Eosinophils % (Manual) Nucleated RBC % Seg Neutrophils # Seg Neutrophils # Man Lymphocytes # (Manual) Monocytes # (Manual) Eosinophils # (Manual) PT INR APTT POC ABG pH ABG pH 7.288 L POC ABG pCO2 POC ABG pO2 ABG pO2 109.7 H ABG HCO3 30.9 H ABG O2 Saturation ABG Base Excess 3.2 H ABG Hemoglobin 9.6 L Oxyhemoglobin Sodium Potassium Chloride Carbon Dioxide BUN Creatinine Glucose POC Glucose 126 H 147 H Uric Acid Calcium Phosphorus Magnesium AST ALT Total Creatine Kinase CK-MB (CK-2) Troponin T NT-Pro-B Natriuret Pep Total Protein Albumin Triglycerides HDL Cholesterol Urine WBC (Auto) Urine Creatinine Urine Total Protein Vancomycin Trough 05/13/19 05/13/19 05/14/19 06:27 11:58 04:00 WBC RBC 3.16 L Hgb 9.3 L Hct 27.9 L MCV MCH MCHC RDW 17.1 H Lymph % (Auto) [place] % (Auto) Eos % (Auto) Lymph # [place] # Eos # Seg Neutrophils % Seg Neuts % (Manual) Lymphocytes % (Manual) Monocytes % (Manual) Eosinophils % (Manual) Nucleated RBC % Seg Neutrophils # Seg Neutrophils # Man Lymphocytes # (Manual) Monocytes # (Manual) Eosinophils # (Manual) PT INR APTT POC ABG pH ABG pH POC ABG pCO2 POC ABG pO2 ABG pO2 ABG HCO3 ABG O2 Saturation ABG Base Excess ABG Hemoglobin Oxyhemoglobin Sodium Potassium Chloride Carbon Dioxide BUN Creatinine Glucose POC Glucose 113 H 130 H Uric Acid Calcium Phosphorus Magnesium AST ALT Total Creatine Kinase CK-MB (CK-2) Troponin T NT-Pro-B Natriuret Pep Total Protein Albumin Triglycerides HDL Cholesterol Urine WBC (Auto) Urine Creatinine Urine Total Protein Vancomycin Trough 05/14/19 05/14/19 05/14/19 04:00 04:34 05:32 WBC RBC Hgb Hct MCV MCH MCHC RDW Lymph % (Auto) [place] % (Auto) Eos % (Auto) Lymph # [place] # Eos # Seg Neutrophils % Seg Neuts % (Manual) Lymphocytes % (Manual) Monocytes % (Manual) Eosinophils % (Manual) Nucleated RBC % Seg Neutrophils # Seg Neutrophils # Man Lymphocytes # (Manual) Monocytes # (Manual) Eosinophils # (Manual) PT INR APTT POC ABG pH 7.328 L ABG pH POC ABG pCO2 61.7 H POC ABG pO2 ABG pO2 ABG HCO3 ABG O2 Saturation ABG Base Excess ABG Hemoglobin Oxyhemoglobin Sodium 135 L D Potassium Chloride Carbon Dioxide BUN 57 H Creatinine 2.2 H Glucose 115 H POC Glucose 115 H Uric Acid Calcium 8.1 L Phosphorus Magnesium AST ALT Total Creatine Kinase CK-MB (CK-2) Troponin T NT-Pro-B Natriuret Pep Total Protein Albumin Triglycerides HDL Cholesterol Urine WBC (Auto) Urine Creatinine Urine Total Protein Vancomycin Trough 05/14/19 05/15/19 05/15/19 12:11 05:10 05:24 WBC RBC Hgb Hct MCV MCH MCHC RDW Lymph % (Auto) [place] % (Auto) Eos % (Auto) Lymph # [place] # Eos # Seg Neutrophils % Seg Neuts % (Manual) Lymphocytes % (Manual) Monocytes % (Manual) Eosinophils % (Manual) Nucleated RBC % Seg Neutrophils # Seg Neutrophils # Man Lymphocytes # (Manual) Monocytes # (Manual) Eosinophils # (Manual) PT INR APTT POC ABG pH ABG pH 7.342 L POC ABG pCO2 POC ABG pO2 ABG pO2 79.1 L ABG HCO3 28.2 H ABG O2 Saturation ABG Base Excess ABG Hemoglobin 7.0 L Oxyhemoglobin 94.4 L Sodium Potassium Chloride Carbon Dioxide BUN Creatinine Glucose POC Glucose 110 H 116 H Uric Acid Calcium Phosphorus Magnesium AST ALT Total Creatine Kinase CK-MB (CK-2) Troponin T NT-Pro-B Natriuret Pep Total Protein Albumin Triglycerides HDL Cholesterol Urine WBC (Auto) Urine Creatinine Urine Total Protein Vancomycin Trough 05/15/19 05/15/19 05/16/19 09:00 18:12 04:50 WBC RBC Hgb Hct MCV MCH MCHC RDW Lymph % (Auto) [place] % (Auto) Eos % (Auto) Lymph # [place] # Eos # Seg Neutrophils % Seg Neuts % (Manual) Lymphocytes % (Manual) Monocytes % (Manual) Eosinophils % (Manual) Nucleated RBC % Seg Neutrophils # Seg Neutrophils # Man Lymphocytes # (Manual) Monocytes # (Manual) Eosinophils # (Manual) PT INR APTT POC ABG pH ABG pH 7.250 L POC ABG pCO2 POC ABG pO2 ABG pO2 76.4 L ABG HCO3 ABG O2 Saturation 94.6 L ABG Base Excess -3.1 L ABG Hemoglobin 9.7 L Oxyhemoglobin 92.4 L Sodium Potassium Chloride Carbon Dioxide BUN Creatinine Glucose POC Glucose 110 H Uric Acid Calcium Phosphorus Magnesium AST ALT Total Creatine Kinase CK-MB (CK-2) Troponin T NT-Pro-B Natriuret Pep Total Protein Albumin Triglycerides HDL Cholesterol Urine WBC (Auto) Urine Creatinine Urine Total Protein Vancomycin Trough 20.5 H 05/16/19 05/16/19 05/17/19 05:50 05:50 04:20 WBC RBC 3.36 L 3.44 L Hgb 9.4 L 9.3 L Hct 29.1 L 29.7 L MCV MCH 27 L MCHC 31 L RDW 17.6 H 17.6 H Lymph % (Auto) [place] % (Auto) Eos % (Auto) Lymph # [place] # Eos # Seg Neutrophils % Seg Neuts % (Manual) 77.0 H Lymphocytes % (Manual) 5.0 L Monocytes % (Manual) Eosinophils % (Manual) 10.0 H Nucleated RBC % Seg Neutrophils # Seg Neutrophils # Man Lymphocytes # (Manual) 0.5 L Monocytes # (Manual) Eosinophils # (Manual) 0.9 H PT INR APTT POC ABG pH ABG pH POC ABG pCO2 POC ABG pO2 ABG pO2 ABG HCO3 ABG O2 Saturation ABG Base Excess ABG Hemoglobin Oxyhemoglobin Sodium Potassium Chloride Carbon Dioxide BUN 83 H Creatinine 4.4 H D Glucose 118 H POC Glucose Uric Acid Calcium Phosphorus Magnesium AST ALT Total Creatine Kinase CK-MB (CK-2) Troponin T NT-Pro-B Natriuret Pep Total Protein Albumin Triglycerides HDL Cholesterol Urine WBC (Auto) Urine Creatinine Urine Total Protein Vancomycin Trough 05/17/19 05/17/19 05/18/19 04:30 Unknown 01:50 WBC RBC 3.49 L Hgb 9.4 L Hct 30.0 L MCV MCH 27 L MCHC 31 L RDW 17.8 H Lymph % (Auto) 7.9 L [place] % (Auto) 15.4 H Eos % (Auto) 6.3 H Lymph # 0.7 L [place] # 1.4 H Eos # 0.6 H Seg Neutrophils % 70.2 H Seg Neuts % (Manual) Lymphocytes % (Manual) Monocytes % (Manual) Eosinophils % (Manual) Nucleated RBC % Seg Neutrophils # Seg Neutrophils # Man Lymphocytes # (Manual) Monocytes # (Manual) Eosinophils # (Manual) PT INR APTT POC ABG pH ABG pH 7.272 L POC ABG pCO2 POC ABG pO2 ABG pO2 75.7 L ABG HCO3 ABG O2 Saturation 93.8 L ABG Base Excess -3.0 L ABG Hemoglobin 7.8 L Oxyhemoglobin 91.6 L Sodium Potassium 5.2 H Chloride Carbon Dioxide BUN 96 H Creatinine 5.7 H Glucose 112 H POC Glucose Uric Acid Calcium Phosphorus Magnesium AST ALT Total Creatine Kinase CK-MB (CK-2) Troponin T NT-Pro-B Natriuret Pep Total Protein Albumin Triglycerides 173 H HDL Cholesterol Urine WBC (Auto) Urine Creatinine Urine Total Protein Vancomycin Trough 05/18/19 05/18/19 05/18/19 01:50 04:41 05:24 WBC RBC Hgb Hct MCV MCH MCHC RDW Lymph % (Auto) [place] % (Auto) Eos % (Auto) Lymph # [place] # Eos # Seg Neutrophils % Seg Neuts % (Manual) Lymphocytes % (Manual) Monocytes % (Manual) Eosinophils % (Manual) Nucleated RBC % Seg Neutrophils # Seg Neutrophils # Man Lymphocytes # (Manual) Monocytes # (Manual) Eosinophils # (Manual) PT INR APTT POC ABG pH 7.260 L ABG pH POC ABG pCO2 54.9 H POC ABG pO2 ABG pO2 ABG HCO3 ABG O2 Saturation ABG Base Excess ABG Hemoglobin Oxyhemoglobin Sodium Potassium 5.6 H Chloride Carbon Dioxide BUN 104 H Creatinine 6.6 H Glucose 107 H POC Glucose 106 H Uric Acid Calcium Phosphorus Magnesium AST ALT Total Creatine Kinase CK-MB (CK-2) Troponin T NT-Pro-B Natriuret Pep Total Protein Albumin Triglycerides HDL Cholesterol Urine WBC (Auto) Urine Creatinine Urine Total Protein Vancomycin Trough 05/18/19 05/18/19 05/19/19 11:34 23:26 04:06 WBC RBC 3.22 L Hgb 8.8 L Hct 27.3 L MCV MCH 27 L MCHC RDW 17.5 H Lymph % (Auto) [place] % (Auto) Eos % (Auto) Lymph # [place] # Eos # Seg Neutrophils % Seg Neuts % (Manual) 74.0 H Lymphocytes % (Manual) 4.0 L Monocytes % (Manual) 11.0 H Eosinophils % (Manual) 7.0 H Nucleated RBC % 1.0 H Seg Neutrophils # Seg Neutrophils # Man Lymphocytes # (Manual) 0.3 L Monocytes # (Manual) 0.9 H Eosinophils # (Manual) 0.6 H PT INR APTT POC ABG pH ABG pH POC ABG pCO2 POC ABG pO2 ABG pO2 ABG HCO3 ABG O2 Saturation ABG Base Excess ABG Hemoglobin Oxyhemoglobin Sodium Potassium Chloride Carbon Dioxide BUN Creatinine Glucose POC Glucose 152 H 112 H Uric Acid Calcium Phosphorus Magnesium AST ALT Total Creatine Kinase CK-MB (CK-2) Troponin T NT-Pro-B Natriuret Pep Total Protein Albumin Triglycerides HDL Cholesterol Urine WBC (Auto) Urine Creatinine Urine Total Protein Vancomycin Trough 05/19/19 05/19/19 05/20/19 04:06 06:00 04:00 WBC RBC 3.40 L Hgb 9.2 L Hct 28.6 L MCV MCH 27 L MCHC RDW 17.6 H Lymph % (Auto) [place] % (Auto) Eos % (Auto) Lymph # [place] # Eos # Seg Neutrophils % Seg Neuts % (Manual) Lymphocytes % (Manual) 11.0 L Monocytes % (Manual) Eosinophils % (Manual) 14.0 H Nucleated RBC % Seg Neutrophils # Seg Neutrophils # Man Lymphocytes # (Manual) 1.1 L Monocytes # (Manual) Eosinophils # (Manual) 1.4 H PT INR APTT POC ABG pH ABG pH 7.315 L POC ABG pCO2 POC ABG pO2 ABG pO2 ABG HCO3 ABG O2 Saturation ABG Base Excess ABG Hemoglobin 6.7 L Oxyhemoglobin 94.1 L Sodium Potassium 5.2 H Chloride Carbon Dioxide 21 L BUN 110 H Creatinine 7.2 H Glucose POC Glucose Uric Acid Calcium 8.3 L Phosphorus Magnesium AST ALT Total Creatine Kinase CK-MB (CK-2) Troponin T NT-Pro-B Natriuret Pep Total Protein Albumin Triglycerides HDL Cholesterol Urine WBC (Auto) Urine Creatinine Urine Total Protein Vancomycin Trough 05/20/19 05/20/19 05/20/19 04:00 05:48 12:00 WBC RBC Hgb Hct MCV MCH MCHC RDW Lymph % (Auto) [place] % (Auto) Eos % (Auto) Lymph # [place] # Eos # Seg Neutrophils % Seg Neuts % (Manual) Lymphocytes % (Manual) Monocytes % (Manual) Eosinophils % (Manual) Nucleated RBC % Seg Neutrophils # Seg Neutrophils # Man Lymphocytes # (Manual) Monocytes # (Manual) Eosinophils # (Manual) PT INR APTT POC ABG pH ABG pH 7.281 L POC ABG pCO2 POC ABG pO2 ABG pO2 78.7 L ABG HCO3 ABG O2 Saturation 94.5 L ABG Base Excess -3.0 L ABG Hemoglobin 9.9 L Oxyhemoglobin 92.5 L Sodium 136 L Potassium 5.7 H Chloride 96.3 L Carbon Dioxide BUN 125 H Creatinine 8.3 H Glucose 106 H POC Glucose Uric Acid Calcium Phosphorus Magnesium AST ALT Total Creatine Kinase CK-MB (CK-2) Troponin T NT-Pro-B Natriuret Pep Total Protein Albumin Triglycerides HDL Cholesterol Urine WBC (Auto) 26.0 H Urine Creatinine Urine Total Protein Vancomycin Trough 05/21/19 05/21/19 05/21/19 04:33 05:20 Unknown WBC RBC 3.38 L Hgb 9.1 L Hct 28.5 L MCV MCH 27 L MCHC RDW 17.4 H Lymph % (Auto) [place] % (Auto) Eos % (Auto) Lymph # [place] # Eos # Seg Neutrophils % Seg Neuts % (Manual) 71.0 H Lymphocytes % (Manual) 1.0 L Monocytes % (Manual) 11.0 H Eosinophils % (Manual) 6.0 H Nucleated RBC % Seg Neutrophils # Seg Neutrophils # Man Lymphocytes # (Manual) 0.1 L Monocytes # (Manual) 1.0 H Eosinophils # (Manual) 0.6 H PT INR APTT POC ABG pH 7.315 L ABG pH POC ABG pCO2 57.8 H POC ABG pO2 68 L ABG pO2 ABG HCO3 ABG O2 Saturation ABG Base Excess ABG Hemoglobin Oxyhemoglobin Sodium Potassium Chloride 96.3 L Carbon Dioxide BUN 102 H Creatinine 7.0 H Glucose 103 H POC Glucose Uric Acid Calcium Phosphorus Magnesium AST ALT Total Creatine Kinase CK-MB (CK-2) Troponin T NT-Pro-B Natriuret Pep Total Protein Albumin Triglycerides HDL Cholesterol Urine WBC (Auto) Urine Creatinine Urine Total Protein Vancomycin Trough 05/22/19 05/22/19 05/22/19 03:54 06:25 06:25 WBC RBC 3.22 L Hgb 8.6 L Hct 27.0 L MCV MCH 27 L MCHC RDW 17.5 H Lymph % (Auto) [place] % (Auto) 16.2 H Eos % (Auto) 10.8 H Lymph # [place] # 1.3 H Eos # 0.9 H Seg Neutrophils % Seg Neuts % (Manual) Lymphocytes % (Manual) 10.0 L Monocytes % (Manual) 13.0 H Eosinophils % (Manual) 8.0 H Nucleated RBC % Seg Neutrophils # Seg Neutrophils # Man Lymphocytes # (Manual) 0.9 L Monocytes # (Manual) 1.1 H Eosinophils # (Manual) 0.7 H PT INR APTT POC ABG pH 7.313 L ABG pH POC ABG pCO2 55.0 H POC ABG pO2 ABG pO2 ABG HCO3 ABG O2 Saturation ABG Base Excess ABG Hemoglobin Oxyhemoglobin Sodium 135 L Potassium Chloride 94.3 L Carbon Dioxide BUN 117 H Creatinine 7.8 H Glucose POC Glucose Uric Acid Calcium 8.2 L Phosphorus Magnesium AST ALT Total Creatine Kinase CK-MB (CK-2) Troponin T NT-Pro-B Natriuret Pep Total Protein Albumin Triglycerides HDL Cholesterol Urine WBC (Auto) Urine Creatinine Urine Total Protein Vancomycin Trough 05/23/19 05/24/19 05/24/19 05:21 05:00 05:00 WBC RBC 3.18 L Hgb 8.5 L Hct 26.7 L MCV MCH 27 L MCHC RDW 17.9 H Lymph % (Auto) [place] % (Auto) Eos % (Auto) Lymph # [place] # Eos # Seg Neutrophils % Seg Neuts % (Manual) Lymphocytes % (Manual) Monocytes % (Manual) Eosinophils % (Manual) Nucleated RBC % Seg Neutrophils # Seg Neutrophils # Man Lymphocytes # (Manual) Monocytes # (Manual) Eosinophils # (Manual) PT INR APTT POC ABG pH ABG pH POC ABG pCO2 49.7 H POC ABG pO2 73 L ABG pO2 ABG HCO3 ABG O2 Saturation ABG Base Excess ABG Hemoglobin Oxyhemoglobin Sodium Potassium Chloride 95.7 L Carbon Dioxide BUN 97 H Creatinine 6.5 H Glucose POC Glucose Uric Acid Calcium 8.0 L Phosphorus Magnesium AST ALT Total Creatine Kinase CK-MB (CK-2) Troponin T NT-Pro-B Natriuret Pep Total Protein Albumin Triglycerides HDL Cholesterol Urine WBC (Auto) Urine Creatinine Urine Total Protein Vancomycin Trough 05/24/19 05/25/19 05/25/19 06:17 04:22 15:45 WBC RBC 2.98 L Hgb 8.1 L Hct 24.9 L MCV MCH 27 L MCHC RDW 17.8 H Lymph % (Auto) [place] % (Auto) Eos % (Auto) Lymph # [place] # Eos # Seg Neutrophils % Seg Neuts % (Manual) Lymphocytes % (Manual) Monocytes % (Manual) Eosinophils % (Manual) Nucleated RBC % Seg Neutrophils # Seg Neutrophils # Man Lymphocytes # (Manual) Monocytes # (Manual) Eosinophils # (Manual) PT INR APTT POC ABG pH 7.330 L 7.313 L ABG pH POC ABG pCO2 52.5 H 51.1 H POC ABG pO2 77 L ABG pO2 ABG HCO3 ABG O2 Saturation ABG Base Excess ABG Hemoglobin Oxyhemoglobin Sodium Potassium Chloride Carbon Dioxide BUN Creatinine Glucose POC Glucose Uric Acid Calcium Phosphorus Magnesium AST ALT Total Creatine Kinase CK-MB (CK-2) Troponin T NT-Pro-B Natriuret Pep Total Protein Albumin Triglycerides HDL Cholesterol Urine WBC (Auto) Urine Creatinine Urine Total Protein Vancomycin Trough 05/25/19 05/26/19 05/26/19 15:45 04:13 05:00 WBC RBC 3.10 L Hgb 8.4 L Hct 26.0 L MCV MCH 27 L MCHC RDW 17.4 H Lymph % (Auto) [place] % (Auto) Eos % (Auto) Lymph # [place] # Eos # Seg Neutrophils % Seg Neuts % (Manual) Lymphocytes % (Manual) Monocytes % (Manual) Eosinophils % (Manual) Nucleated RBC % Seg Neutrophils # Seg Neutrophils # Man Lymphocytes # (Manual) Monocytes # (Manual) Eosinophils # (Manual) PT INR APTT POC ABG pH 7.295 L ABG pH POC ABG pCO2 56.5 H POC ABG pO2 63 L ABG pO2 ABG HCO3 ABG O2 Saturation ABG Base Excess ABG Hemoglobin Oxyhemoglobin Sodium 136 L Potassium Chloride 96.8 L Carbon Dioxide BUN 83 H Creatinine 5.9 H Glucose POC Glucose Uric Acid Calcium 7.6 L Phosphorus Magnesium AST ALT Total Creatine Kinase CK-MB (CK-2) Troponin T NT-Pro-B Natriuret Pep Total Protein Albumin Triglycerides HDL Cholesterol Urine WBC (Auto) Urine Creatinine Urine Total Protein Vancomycin Trough 05/26/19 05/27/19 05/28/19 05:00 04:48 04:47 WBC RBC Hgb Hct MCV MCH MCHC RDW Lymph % (Auto) [place] % (Auto) Eos % (Auto) Lymph # [place] # Eos # Seg Neutrophils % Seg Neuts % (Manual) Lymphocytes % (Manual) Monocytes % (Manual) Eosinophils % (Manual) Nucleated RBC % Seg Neutrophils # Seg Neutrophils # Man Lymphocytes # (Manual) Monocytes # (Manual) Eosinophils # (Manual) PT INR APTT POC ABG pH 7.323 L ABG pH 7.284 L POC ABG pCO2 56.2 H POC ABG pO2 ABG pO2 71.6 L ABG HCO3 ABG O2 Saturation 92.0 L ABG Base Excess ABG Hemoglobin 7.7 L Oxyhemoglobin 89.9 L Sodium 136 L Potassium Chloride 95.3 L Carbon Dioxide BUN 96 H Creatinine 6.5 H Glucose 108 H POC Glucose Uric Acid Calcium 7.6 L Phosphorus Magnesium AST ALT Total Creatine Kinase CK-MB (CK-2) Troponin T NT-Pro-B Natriuret Pep Total Protein Albumin Triglycerides HDL Cholesterol Urine WBC (Auto) Urine Creatinine Urine Total Protein Vancomycin Trough 05/28/19 05/29/19 05/29/19 12:30 12:47 23:44 WBC RBC Hgb Hct MCV MCH MCHC RDW Lymph % (Auto) [place] % (Auto) Eos % (Auto) Lymph # [place] # Eos # Seg Neutrophils % Seg Neuts % (Manual) Lymphocytes % (Manual) Monocytes % (Manual) Eosinophils % (Manual) Nucleated RBC % Seg Neutrophils # Seg Neutrophils # Man Lymphocytes # (Manual) Monocytes # (Manual) Eosinophils # (Manual) PT INR APTT POC ABG pH ABG pH POC ABG pCO2 POC ABG pO2 ABG pO2 ABG HCO3 ABG O2 Saturation ABG Base Excess ABG Hemoglobin Oxyhemoglobin Sodium 135 L Potassium Chloride 95.3 L Carbon Dioxide BUN 82 H Creatinine 6.0 H Glucose POC Glucose 136 H 159 H Uric Acid Calcium 7.5 L Phosphorus Magnesium AST ALT Total Creatine Kinase CK-MB (CK-2) Troponin T NT-Pro-B Natriuret Pep Total Protein Albumin Triglycerides HDL Cholesterol Urine WBC (Auto) Urine Creatinine Urine Total Protein Vancomycin Trough 05/30/19 05/30/19 05/30/19 04:30 05:38 12:00 WBC RBC 3.01 L Hgb 8.2 L Hct 25.3 L MCV MCH 27 L MCHC RDW 17.5 H Lymph % (Auto) [place] % (Auto) Eos % (Auto) Lymph # [place] # Eos # Seg Neutrophils % Seg Neuts % (Manual) 80.0 H Lymphocytes % (Manual) 10.0 L Monocytes % (Manual) Eosinophils % (Manual) Nucleated RBC % Seg Neutrophils # Seg Neutrophils # Man 8.0 H Lymphocytes # (Manual) 1.0 L Monocytes # (Manual) Eosinophils # (Manual) PT INR APTT POC ABG pH ABG pH POC ABG pCO2 POC ABG pO2 73 L ABG pO2 ABG HCO3 ABG O2 Saturation ABG Base Excess ABG Hemoglobin Oxyhemoglobin Sodium Potassium Chloride Carbon Dioxide BUN Creatinine Glucose POC Glucose 166 H Uric Acid Calcium Phosphorus Magnesium AST ALT Total Creatine Kinase CK-MB (CK-2) Troponin T NT-Pro-B Natriuret Pep Total Protein Albumin Triglycerides HDL Cholesterol Urine WBC (Auto) Urine Creatinine Urine Total Protein Vancomycin Trough 05/30/19 05/31/19 05/31/19 23:45 04:07 13:04 WBC 14.3 H RBC 2.88 L Hgb 7.7 L Hct 23.9 L MCV 83 L MCH 27 L MCHC RDW 17.8 H Lymph % (Auto) [place] % (Auto) Eos % (Auto) Lymph # [place] # Eos # Seg Neutrophils % Seg Neuts % (Manual) 83.0 H Lymphocytes % (Manual) 11.0 L Monocytes % (Manual) Eosinophils % (Manual) Nucleated RBC % Seg Neutrophils # Seg Neutrophils # Man 11.9 H Lymphocytes # (Manual) Monocytes # (Manual) 0.9 H Eosinophils # (Manual) PT INR APTT POC ABG pH ABG pH POC ABG pCO2 47.4 H POC ABG pO2 ABG pO2 ABG HCO3 ABG O2 Saturation ABG Base Excess ABG Hemoglobin Oxyhemoglobin Sodium Potassium Chloride Carbon Dioxide BUN Creatinine Glucose POC Glucose 209 H Uric Acid Calcium Phosphorus Magnesium AST ALT Total Creatine Kinase CK-MB (CK-2) Troponin T NT-Pro-B Natriuret Pep Total Protein Albumin Triglycerides HDL Cholesterol Urine WBC (Auto) Urine Creatinine Urine Total Protein Vancomycin Trough 05/31/19 05/31/19 06/01/19 13:04 16:42 00:15 WBC RBC Hgb Hct MCV MCH MCHC RDW Lymph % (Auto) [place] % (Auto) Eos % (Auto) Lymph # [place] # Eos # Seg Neutrophils % Seg Neuts % (Manual) Lymphocytes % (Manual) Monocytes % (Manual) Eosinophils % (Manual) Nucleated RBC % Seg Neutrophils # Seg Neutrophils # Man Lymphocytes # (Manual) Monocytes # (Manual) Eosinophils # (Manual) PT INR APTT POC ABG pH ABG pH POC ABG pCO2 POC ABG pO2 ABG pO2 ABG HCO3 ABG O2 Saturation ABG Base Excess ABG Hemoglobin Oxyhemoglobin Sodium 129 L Potassium Chloride 88.6 L Carbon Dioxide 19 L BUN 117 H Creatinine 6.7 H Glucose 205 H POC Glucose 228 H 223 H Uric Acid Calcium 7.4 L Phosphorus 7.40 H Magnesium AST 58 H ALT 149 H Total Creatine Kinase CK-MB (CK-2) Troponin T NT-Pro-B Natriuret Pep Total Protein 6.0 L Albumin 2.5 L Triglycerides HDL Cholesterol Urine WBC (Auto) Urine Creatinine Urine Total Protein Vancomycin Trough 06/01/19 06/01/19 04:33 05:27 WBC RBC Hgb Hct MCV MCH MCHC RDW Lymph % (Auto) [place] % (Auto) Eos % (Auto) Lymph # [place] # Eos # Seg Neutrophils % Seg Neuts % (Manual) Lymphocytes % (Manual) Monocytes % (Manual) Eosinophils % (Manual) Nucleated RBC % Seg Neutrophils # Seg Neutrophils # Man Lymphocytes # (Manual) Monocytes # (Manual) Eosinophils # (Manual) PT INR APTT POC ABG pH ABG pH POC ABG pCO2 POC ABG pO2 ABG pO2 56.9 L ABG HCO3 ABG O2 Saturation 85.9 L ABG Base Excess ABG Hemoglobin 8.1 L Oxyhemoglobin 83.6 L Sodium Potassium Chloride Carbon Dioxide BUN Creatinine Glucose POC Glucose 183 H Uric Acid Calcium Phosphorus Magnesium AST ALT Total Creatine Kinase CK-MB (CK-2) Troponin T NT-Pro-B Natriuret Pep Total Protein Albumin Triglycerides HDL Cholesterol Urine WBC (Auto) Urine Creatinine Urine Total Protein Vancomycin Trough
[2019-06-01] MEDS: levETIRAcetam 500 MG/5 ML ORAL LIQD PO SCH ×2 (09:40→21:56)
[2019-06-01] MEDS: ENOXAPARIN 30 MG/0.3 ML INJ SUB-Q SCH (09:41)
[2019-06-01] MEDS: FAMOTIDINE 20 MG TAB PO SCH (09:41)
[2019-06-01] MEDS: fentaNYL DRIP Premix 2,000 MCG/100 ML BAG IV SCH ×2 (09:49→19:20)
--- NOTE | 2019-06-01 11:41 | Progress Note ---
Assessment and Plan Assessment and plan: 34-year-old man who is morbidly obese (575 lbs) with unknown medical history who presented to [facility] ED on 05/01/2019 (I started seeing patient for the first time on 05/20/19, Day 19) with SOB. He was placed on BIPAP and failed. He had a cardiac arrest in ED and was Intubated in ED. On 05/12/19- ETT exchanged due to hypoxia. In the chart there is a report that he has undiagnosis LANDON and using someone else CPAP. I spoke with his mother Magalis Jay on Saturday May 25, 2019 at [phone], her answered the phone but he is not Jaems' father. She came to the phone. She appeared to be crying, she says she has the FLU but no other family has visit patient to my knowledge. On 05/27/2018, he bite down on ruptured ETT tube which was replaced again. Patient remains intubated on very high PEEP which is preventing Tracheostomy. Patient spiking temperatures, believed to be non-infectious by ID and off abx on IV steroids for possible drug related rash/fever with high Eosinophilia. For perm-a-cath today. 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 Obesity Hypoventilation syndrome Patient previously on LANDON Management at home but per discussion with family, was non complaint Sepsis- not present on admission -On abx, ID following. LP when able ?Meningitis considering recurrent fever. Doubt, but ID following Acylovir stopped Monitoring Temperature, ID following size prohibits leon CT scanner ?Seizure activity during hospital coarse, none since i have been following since 05/20/19 -Meninigitis prophy done, ID following -Neurology consult -EEG-negative Acute CHF, new onset, diastolic treated with IV lasix now held, on HD now monitor I/O, daily weights Cardiology following. Added beta-jenny, no TIM inhibitor secondary to renal insufficiency Hypertension malignant IV hydralazine as needed for further control Acute kidney injury due to ATN ?Vancomycin toxicity, Held. Monitor Nephrology following and input noted. Berkowitz for strict I/Os HD per nephrology Hyperkalemia-Kaylexate given Monitor bmp Passive congestive hepatic syndrome -LFT elevated but trending down -Noted Gallbladder sludge DVT prophylaxis with Lovenox Extreme obesity, bmi 70.1 Full code status. Prognosis guarded History Interval history: Patient was seen and examined. Follow-up on current diagnosis of Respiratory failure. Overnight uneventful. Imaging, nursing note, chart, labs and old chart reviewed. Still intubated and sedated. Hospitalist Physical - Physical exam Narrative exam: Gen: critically ill, bmi 70.1 sedated HEENT: NCAT, OP ETT in place Neck: supple, no adenopathy, no thyromegaly, no JVD CVS/Heart: tachycardiac, normal S1S2, pulses present bilaterally Chest/Lungs: tachypneic, Symmetrical chest expansion, good air entry bilaterally GI/Abdomen: soft, NTND, good bowel sounds, no guarding or rebound : scrotal edema, unable to see his penis Extermity/Skin: good skin turgor MSK: sedated Neuro: sedated Psych: sedated Hospitalist Physical - Constitutional Vitals: Temp Pulse Resp BP Pulse Ox 98.2 F 63 20 142/52 92 06/01/19 10:00 06/01/19 11:30 06/01/19 11:00 06/01/19 11:30 06/01/19 11:00 General appearance: Present: no acute distress Results - Labs CBC & Chem 7: 06/12/19 03:21 06/13/19 04:32 Labs: Laboratory Last Values WBC 14.3 K/mm3 (4.5-11.0) H 05/31/19 13:04 RBC 2.88 M/mm3 (3.65-5.03) L 05/31/19 13:04 Hgb 7.7 gm/dl (11.8-15.2) L 05/31/19 13:04 Hct 23.9 % (35.5-45.6) L 05/31/19 13:04 MCV 83 fl (84-94) L 05/31/19 13:04 MCH 27 pg (28-32) L 05/31/19 13:04 MCHC 32 % (32-34) 05/31/19 13:04 RDW 17.8 % (13.2-15.2) H 05/31/19 13:04 Plt Count 265 K/mm3 (140-440) 05/31/19 13:04 Lymph % (Auto) 7.9 % (13.4-35.0) L 05/18/19 01:50 Hall % (Auto) 16.2 % (0.0-7.3) H 05/22/19 06:25 Eos % (Auto) 10.8 % (0.0-4.3) H 05/22/19 06:25 Baso % (Auto) 0.2 % (0.0-1.8) 05/18/19 01:50 Lymph # 0.7 K/mm3 (1.2-5.4) L 05/18/19 01:50 Hall # 1.3 K/mm3 (0.0-0.8) H 05/22/19 06:25 Eos # 0.9 K/mm3 (0.0-0.4) H 05/22/19 06:25 Baso # 0.0 K/mm3 (0.0-0.1) 05/22/19 06:25 Add Manual Diff Complete 05/31/19 13:04 Total Counted 100 05/31/19 13:04 Seg Neutrophils % 65.5 % (40.0-70.0) 05/22/19 06:25 Seg Neuts % (Manual) 83.0 % (40.0-70.0) H 05/31/19 13:04 Band Neutrophils % 0 % 05/31/19 13:04 Lymphocytes % (Manual) 11.0 % (13.4-35.0) L 05/31/19 13:04 Reactive Lymphs % (Man) 0 % 05/31/19 13:04 Monocytes % (Manual) 6.0 % (0.0-7.3) 05/31/19 13:04 Eosinophils % (Manual) 0 % (0.0-4.3) 05/31/19 13:04 Basophils % (Manual) 0 % (0.0-1.8) 05/31/19 13:04 Metamyelocytes % 0 % 05/31/19 13:04 Myelocytes % 0 % 05/31/19 13:04 Promyelocytes % 0 % 05/31/19 13:04 Blast Cells % 0 % 05/31/19 13:04 Nucleated RBC % Not Reportable 05/31/19 13:04 Seg Neutrophils # 5.3 K/mm3 (1.8-7.7) 05/22/19 06:25 Seg Neutrophils # Man 11.9 K/mm3 (1.8-7.7) H 05/31/19 13:04 Band Neutrophils # 0.0 K/mm3 05/31/19 13:04 Lymphocytes # (Manual) 1.6 K/mm3 (1.2-5.4) 05/31/19 13:04 Abs React Lymphs (Man) 0.0 K/mm3 05/31/19 13:04 Monocytes # (Manual) 0.9 K/mm3 (0.0-0.8) H 05/31/19 13:04 Eosinophils # (Manual) 0.0 K/mm3 (0.0-0.4) 05/31/19 13:04 Basophils # (Manual) 0.0 K/mm3 (0.0-0.1) 05/31/19 13:04 Metamyelocytes # 0.0 K/mm3 05/31/19 13:04 Myelocytes # 0.0 K/mm3 05/31/19 13:04 Promyelocytes # 0.0 K/mm3 05/31/19 13:04 Blast Cells # 0.0 K/mm3 05/31/19 13:04 WBC Morphology Not Reportable 05/31/19 13:04 Hypersegmented Neuts Not Reportable 05/31/19 13:04 Hyposegmented Neuts Not Reportable 05/31/19 13:04 Hypogranular Neuts Not Reportable 05/31/19 13:04 Smudge Cells Not Reportable 05/31/19 13:04 Toxic Granulation Not Reportable 05/31/19 13:04 Toxic Vacuolation Not Reportable 05/31/19 13:04 Dohle Bodies Not Reportable 05/31/19 13:04 Pelger-Huet Anomaly Not Reportable 05/31/19 13:04 Renea Rods Not Reportable 05/31/19 13:04 Platelet Estimate Consistent w auto 05/31/19 13:04 Clumped Platelets Not Reportable 05/31/19 13:04 Plt Clumps, EDTA Not Reportable 05/31/19 13:04 Large Platelets Rare 05/31/19 13:04 Giant Platelets Not Reportable 05/31/19 13:04 Platelet Satelliting Not Reportable 05/31/19 13:04 Plt Morphology Comment Not Reportable 05/31/19 13:04 RBC Morphology Not Reportable 05/31/19 13:04 Dimorphic RBCs Not Reportable 05/31/19 13:04 Polychromasia Not Reportable 05/31/19 13:04 Hypochromasia Not Reportable 05/31/19 13:04 Poikilocytosis Not Reportable 05/31/19 13:04 Anisocytosis Few 05/31/19 13:04 Microcytosis Not Reportable 05/31/19 13:04 Macrocytosis Not Reportable 05/31/19 13:04 Spherocytes Not Reportable 05/31/19 13:04 Pappenheimer Bodies Not Reportable 05/31/19 13:04 Sickle Cells Not Reportable 05/31/19 13:04 Target Cells Not Reportable 05/31/19 13:04 Tear Drop Cells Not Reportable 05/31/19 13:04 Ovalocytes Not Reportable 05/31/19 13:04 Stomatocytes Few 05/30/19 05:38 Helmet Cells Not Reportable 05/31/19 13:04 [place] Bodies Not Reportable 05/31/19 13:04 [place] Rings Not Reportable 05/31/19 13:04 [place] Cells Not Reportable 05/31/19 13:04 Bite Cells Not Reportable 05/31/19 13:04 Crenated Cell Not Reportable 05/31/19 13:04 Elliptocytes Not Reportable 05/31/19 13:04 Acanthocytes (Spur) Not Reportable 05/31/19 13:04 Rouleaux Not Reportable 05/31/19 13:04 Hemoglobin C Crystals Not Reportable 05/31/19 13:04 Schistocytes Not Reportable 05/31/19 13:04 Malaria parasites Not Reportable 05/31/19 13:04 Syed Bodies Not Reportable 05/31/19 13:04 Hem Pathologist Commnt No 05/31/19 13:04 PT 15.4 Sec. (12.2-14.9) H 05/01/19 Unknown INR 1.23 (0.87-1.13) H 05/01/19 Unknown APTT 22.7 Sec. (24.2-36.6) L 05/01/19 Unknown POC ABG pH 7.357 (7.35-7.45) 05/31/19 04:07 ABG pH 7.375 pH Units (7.350-7.450) 06/01/19 04:33 POC ABG pCO2 47.4 (35-45) H 05/31/19 04:07 ABG pCO2 42.7 mm Hg 06/01/19 04:33 POC ABG pO2 92 (80-105) 05/31/19 04:07 ABG pO2 56.9 mm Hg (80.0-90.0) L 06/01/19 04:33 POC ABG HCO3 26.6 (22-26 mml/L) 05/31/19 04:07 ABG HCO3 24.4 mmol/L (20.0-26.0) 06/01/19 04:33 POC ABG Total CO2 28 (23-27mmol/L) 05/31/19 04:07 POC ABG O2 Sat 97 05/31/19 04:07 ABG O2 Saturation 85.9 % (95.0-99.0) L 06/01/19 04:33 ABG O2 Content 9.6 (0.0-44) 06/01/19 04:33 POC ABG Base Excess 1 ((-2) - (+3)mmol/L) 05/31/19 04:07 ABG Base Excess -0.7 mmol/L (-2.0-3.0) 06/01/19 04:33 ABG Hemoglobin 8.1 gm/dl (14.0-18.0) L 06/01/19 04:33 ABG Carboxyhemoglobin 2.1 % (0.0-5.0) 06/01/19 04:33 ABG Methemoglobin 0.5 % (0.0-1.5) 06/01/19 04:33 Oxyhemoglobin 83.6 % (95.0-99.0) L 06/01/19 04:33 FiO2 30 % 06/01/19 04:33 Sodium 129 mmol/L (137-145) L 05/31/19 13:04 Potassium 5.0 mmol/L (3.6-5.0) 05/31/19 13:04 Chloride 88.6 mmol/L (98-107) L 05/31/19 13:04 Carbon Dioxide 19 mmol/L (22-30) L 05/31/19 13:04 Anion Gap 26 mmol/L 05/31/19 13:04 BUN 117 mg/dL (9-20) H 05/31/19 13:04 Creatinine 6.7 mg/dL (0.8-1.5) H 05/31/19 13:04 Estimated GFR 12 ml/min 05/31/19 13:04 BUN/Creatinine Ratio 17 % 05/31/19 13:04 Glucose 205 mg/dL (75-100) H 05/31/19 13:04 POC Glucose 183 (70-105) H 06/01/19 05:27 Osmolality 327 Mosm/kg 05/07/19 13:45 Uric Acid 18.0 mg/dL (3.5-7.6) H 05/07/19 13:45 Calcium 7.4 mg/dL (8.4-10.2) L 05/31/19 13:04 Phosphorus 7.40 mg/dL (2.5-4.5) H 05/31/19 13:04 Magnesium 1.90 mg/dL (1.7-2.3) 05/31/19 13:04 Total Bilirubin 0.30 mg/dL (0.1-1.2) 05/31/19 13:04 AST 58 units/L (5-40) H 05/31/19 13:04 ALT 149 units/L (7-56) H 05/31/19 13:04 Alkaline Phosphatase 84 units/L (35-129) 05/31/19 13:04 Total Creatine Kinase 131 units/L (55-170) 05/02/19 04:41 CK-MB (CK-2) 5.2 ng/mL (0.0-4.0) H 05/02/19 04:41 CK-MB (CK-2) Rel Index 3.9 (0-4) 05/02/19 04:41 Troponin T 0.067 ng/mL (0.00-0.029) H D 05/02/19 04:41 NT-Pro-B Natriuret Pep 6831 pg/mL (0-450) H 05/01/19 Unknown Total Protein 6.0 g/dL (6.3-8.2) L 05/31/19 13:04 Albumin 2.5 g/dL (3.9-5) L 05/31/19 13:04 Albumin/Globulin Ratio 0.7 % 05/31/19 13:04 Triglycerides 173 mg/dL (2-149) H 05/17/19 Unknown Cholesterol 173 mg/dL (50-199) 05/02/19 00:06 LDL Cholesterol Direct 126 mg/dL (50-130) 05/02/19 00:06 HDL Cholesterol 18 mg/dL (40-59) L 05/02/19 00:06 Cholesterol/HDL Ratio 9.61 % 05/02/19 00:06 Procalcitonin 0.54 ng/mL (<0.15) 05/03/19 11:52 Urine Color Yellow (Yellow) 05/20/19 12:00 Urine Turbidity Cloudy (Clear) 05/20/19 12:00 Urine pH 5.0 (5.0-7.0) 05/20/19 12:00 Ur Specific [place] 1.015 (1.003-1.030) 05/20/19 12:00 Urine Protein 30 mg/dl mg/dL (Negative) 05/20/19 12:00 Urine Glucose (UA) Neg mg/dL (Negative) 05/20/19 12:00 Urine Ketones Neg mg/dL (Negative) 05/20/19 12:00 Urine Blood Lg (Negative) 05/20/19 12:00 Urine Nitrite Neg (Negative) 05/20/19 12:00 Urine Bilirubin Neg (Negative) 05/20/19 12:00 Urine Urobilinogen < 2.0 mg/dL (<2.0) 05/20/19 12:00 Ur Leukocyte Esterase Mod (Negative) 05/20/19 12:00 Urine WBC (Auto) 26.0 /HPF (0.0-6.0) H 05/20/19 12:00 Urine RBC (Auto) 83.0 /HPF (0.0-6.0) 05/20/19 12:00 Urine Bacteria (Auto) 1+ /HPF (Negative) 05/20/19 12:00 Uric Acid Crystals 3+ 05/03/19 10:55 Urine Mucus Few /HPF 05/20/19 12:00 Urine Yeast (Budding) 3+ /HPF 05/20/19 12:00 Urine Creatinine 292.8 mg/dL (0.1-20.0) H 05/07/19 22:40 Urine Sodium 11 mmol/L 05/07/19 22:40 Urine Total Protein 269 mg/dL (5-11.8) H 05/07/19 22:40 Vancomycin Trough 20.5 ug/mL (5.0-20.0) H 05/15/19 09:00 Random Vancomycin 11.5 ug/mL (0-40.0) 05/27/19 06:00 AMNA Screen Negative (Negative) 05/07/19 13:45 Hepatitis A IgM Ab Non-reactive (NonReactive) 05/07/19 13:45 Hep Bs Antigen Non-reactive (Negative) 05/07/19 13:45 Hep B Core IgM Ab Non-reactive (NonReactive) 05/07/19 13:45 Hepatitis C Antibody Non-reactive (NonReactive) 05/07/19 13:45 Active Medications - Current Medications Current Medications: Generic Name Dose Route Start Last Admin Trade Name Freq PRN Reason Stop Dose Admin Albumin Human 25 gm 05/19/19 10:47 Alburx 25% (Albumin) IV ARIANE PRN Hypotension Alteplase, Recombinant 2 mg 05/25/19 09:30 05/28/19 21:15 Cathflo IV 2 mg ARIANE PRN Administration LINE FLUSH Lipase/Protease/Amylase 1 each 05/14/19 15:[address] 10,500 Unit FEEDTUBE PRN PRN For Clogged Feeding Tube Dextrose 50 gm 05/01/19 20:24 D50w (25gm) Vial IV Q30MIN PRN Hypoglycemia Protocol Enoxaparin Sodium 30 mg 05/16/19 10:00 06/01/19 09:41 Enoxaparin SUB-Q 30 mg QDAY VICKEY Administration Epoetin Hugo 10,000 unit 05/19/19 10:47 05/29/19 12:53 Procrit IV 10,000 unit ARIANE PRN Administration hemodialysis Famotidine 20 mg 05/16/19 10:00 06/01/19 09:41 Pepcid PO 20 mg DAILY VICKEY Administration Hydralazine HCl 20 mg 05/13/19 08:09 05/14/19 18:09 Apresoline IV 20 mg Q4HR PRN Administration SBP >/=160 Hydrophilic Ointment 1 applic 05/01/19 21:14 Vaseline Lip Therapy TP Q2HR PRN Dry Lips Fentanyl Citrate 2,000 mcg in 100 mls @ 10.195 mls/hr 05/01/19 22:00 06/01/19 09:49 Fentanyl Drip Premix IV 1 mcg/kg/hr TITR VICKEY 10.195 mls/hr Administration Protocol 1 MCG/KG/HR Propofol 1,000 mg in 100 mls @ 7.011 mls/hr 05/03/19 04:00 06/01/19 05:02 Diprivan 10 Mg/Ml IV 5 mcg/kg/min TITR VICKEY 7.011 mls/hr Administration Protocol 5 MCG/KG/MIN Sodium Chloride 500 mls @ 10 mls/hr 05/06/19 15:00 Nacl 0.9% 500 Ml IV DIRECT VICKEY Sodium Chloride 100 mls @ 999 mls/hr 05/19/19 10:47 05/20/19 08:14 Nacl 0.9% IV 999 mls/hr ARIANE PRN Administration Hypotension Labetalol HCl 100 mg 05/14/19 14:00 06/01/19 05:03 Labetalol PO 100 mg Q8HR VICKEY Administration Levetiracetam 750 mg 05/13/19 10:00 06/01/19 09:40 Keppra PO 750 mg BID VICKEY Administration Lorazepam 2 mg 05/06/19 06:22 05/10/19 16:17 Ativan IV 2 mg Q4H PRN Administration Seizures/AGITATION Methylprednisolone Sodium Succinate 125 mg 05/29/19 14:00 06/01/19 05:04 Solu-Medrol IV 125 mg Q8HR VICKEY Administration Multi-Ingred Cream/Lotion/Oil/Oint 1 applic 05/01/19 21:14 Artificial Tears Ophth Oint OU Q4HR PRN Dry Eye(s) Ondansetron HCl 4 mg 05/01/19 22:46 Zofran IV Q8H PRN Nausea And Vomiting Scopolamine 1 each 05/20/19 12:00 05/20/19 12:52 Transderm-Scop TD 1 each Q72HR VICKEY Administration Simple Syrup 15 ml 05/14/19 15:01 Simple Syrup FEEDTUBE PRN PRN Hypoglycemia Simple Syrup 30 ml 05/14/19 15:01 Simple Syrup FEEDTUBE PRN PRN Hypoglycemia Sodium Bicarbonate 325 mg 05/14/19 15:01 Sodium Bicarbonate FEEDTUBE PRN PRN For Clogged Feeding Tube Sodium Chloride 10 ml 05/02/19 10:00 05/31/19 22:37 Sodium Chloride Flush Syringe 10 Ml IV 10 ml BID VICKEY Administration Sodium Chloride 10 ml 05/01/19 22:46 05/05/19 02:28 Sodium Chloride Flush Syringe 10 Ml IV 10 ml PRN PRN Administration LINE FLUSH Nutrition/Malnutrition Assess - Dietary Evaluation Nutrition/Malnutrition Findings: Nutrition Notes Start: 05/04/19 12:54 Freq: Status: Active Protocol: Document 05/28/19 11:56 LP (Rec: 05/28/19 12:04 LP [id number]) Nutrition Notes Initial or Follow up Reassessment Current Diagnosis Acute Kidney Injury,Sepsis, Respiratory Failure Other Pertinent Diagnosis on HD Current Diet Nepro 1.8 at 50 ml/hr Labs/Tests Reviewed Pertinent Medications Reviewed Height 6 ft 4 in Weight 261.4 kg [place] Body Weight (kg) 91.81 BMI 70.1 Weight Status Morbidly Obese Subjective/Other Information Pt tolerating Nepro at 50ml/hr . Pt on HD. Percent of energy/protein needs met: 100%/53% Burn Absent Trauma Absent Current % PO Negligible Minimum of two criteria No physical signs of malnutrition #1 Nutrition Diagnosis Inadequate oral intake Diagnosis Progress(for reassessment Continues documentation) Is patient on ventilator? Yes Is Patient Ambulatory and/or Out of Bed No [facility] 4392.636 Kcal/Kg value to use for calculation 8 Approximate Energy Requirements Using 2091 kcal/Kg Calculation Used for Recommendations Kcal/kg Additional Notes PRO needs: 225 g (up to 2.5 g/ kg IBW) Fluid needs: 1 ml/kcal Nutrition Intervention Change Diet Order: Continue TF Nutrition Support: Nepro 1.8 at 50 ml/hr Flush with 150ml q4h Kcal 2,160 Protein (gm) 97 Fluid (mL) 872 Goal #1 TF tolerance Goal #2 Meet at least 75% kcal/PRO needs via TF Anticipated Discharge Needs: Unable to determine at this time Follow-Up By: 06/03/19 Additional Comments Follow fot stable intakes
[2019-06-01] MEDS: INSULIN LISPRO 100 UNIT/ML SUB-Q SCH ×2 (14:38→18:15)
--- NOTE | 2019-06-01 14:46 | Progress Note ---
Assessment and Plan Cultures: Blood cultures 05/11/19: no growth thus far Blood cultures 05/18/19 pending Sputum culture 05/11/19: no growth thus far urine culture: no growth resp culture: no growth Blood culture 05/18/2019: no growth thus far urine culture 05/20/2019: normal skin shandra, Jarad albicans sputum culture 05/20/2019: Jarad albicans Blood culture 05/23/2019: no growth A/P: 34-year-old male with obesity admitted with: #Fever, SIRS with shock: shock resolved, intermittently febrile. Initially felt to be ?aspiration related. Apparently was using CPAP. Persistent febrile again, likely ?UTI. Repeat UA showed pyuria, had indwelling Han which was removed again 05/20. Urine culture with normal skin shandra. Fevers now recurred since 05/17. Should eval for worsening pneumonia, sinusitis, but unable to fit in CT scan. candiduria also generally does not require treatment, but in this patient with recurrent fever, reasonable to consider a trial of fluconazole renally adjusted. Likely drug fever, given eosinophilia. #Diffuse rash with eosinophilia: abx classes were changed on 05/25/2019 and then all abx stopped on 05/27/2019. #Acute hypoxic hypercapneic respiratory failure, possibly obesity hypoven tilation syndrome: on the vent. Pulmonary managing. jarad in sputum does not need treatment, it almost never causes a pneumonia and is reflective of colonization, overgrowth in the setting of abx use #Morbid obesity #CARLA: creatinine elevated. dose abx accordingly. Now on HD via vascath #Elevated LFTs: RUQ US showed fatty liver, small GB sludge. Improving. #Acute encephalopathy with ?seizure activity: persistent fevers. Has been receiving empiric meningitis coverage #UTI: s/p han removal on 05/20 Recs: - would continue to hold off on any antibiotics, he has received multiple abx courses without any obvious infectious cause. - on steroids, fevers resolved Burke Wilks MD, FACP [facility] ([facility] C: [phone] O: [phone] F: [phone] Subjective Date of service: 06/01/19 Principal diagnosis: HF; acute hypoxemic resp failure, SIRS, CARLA Interval history: Stable. Remains on the vent. no fever. Objective - Exam Narrative Exam: Physical Exam: Constitutional: sedated, intubated. Morbid obesity Head, Ears, Nose: Normocephalic, atraumatic. External ears, nose normal Eyes: Conjunctivae/corneas clear. No icterus. No ptosis. Neck: intubated Oral: intubated Cardiovascular: S1, S2 normal. Respiratory: Good air entry, clear to auscultation bilaterally GI: Soft, non-tender; bowel sounds normal. No peritoneal signs Musculoskeletal: No pedal edema, no cyanosis. Skin: rash improving Hem/Lymphatic: No palpable cervical or supraclavicular nodes. No lymphangitis Psych: no agitation Neurological: sedated, intubated, on vent - Constitutional Vitals: Vital Signs Temp Pulse Resp BP Pulse Ox 98.9 F 60 15 153/67 95 06/01/19 14:26 06/01/19 14:26 06/01/19 14:26 06/01/19 14:26 06/01/19 14:26 Temperature -Last 24 Hours Temperature 98.9 F Temperature 99.0 F Temperature 98.2 F Temperature 100.3 F Temperature 98.9 F Temperature 98.6 F Temperature 98.9 F Temperature 99.3 F - Labs CBC & Chem 7: 05/31/19 13:04 05/31/19 13:04 Labs: Abnormal lab results 05/31/19 06/01/19 06/01/19 Range/Units 16:42 00:15 04:33 ABG pO2 56.9 L (80.0-90.0) mm Hg ABG O2 Saturation 85.9 L (95.0-99.0) % ABG Hemoglobin 8.1 L (14.0-18.0) gm/dl Oxyhemoglobin 83.6 L (95.0-99.0) % POC Glucose 228 H 223 H (70-105) 06/01/19 06/01/19 Range/Units 05:27 12:31 ABG pO2 (80.0-90.0) mm Hg ABG O2 Saturation (95.0-99.0) % ABG Hemoglobin (14.0-18.0) gm/dl Oxyhemoglobin (95.0-99.0) % POC Glucose 183 H 217 H (70-105)
[2019-06-02] MEDS: INSULIN LISPRO 100 UNIT/ML SUB-Q SCH ×5 (00:02→23:58)
[2019-06-02] MEDS: hydrALAZINE 20 MG/1 ML INJ IV PRN ×2 (01:11→16:37)
[2019-06-02] MEDS: fentaNYL DRIP Premix 2,000 MCG/100 ML BAG IV SCH ×3 (05:31→21:11)
[2019-06-02] MEDS: methylPREDNISolone Sod Succinate 125 MG/2 ML INJ IV SCH ×3 (05:42→21:12)
--- NOTE | 2019-06-02 08:27 | Progress Note ---
Subjective Principal diagnosis: HF; acute hypoxemic resp failure, SIRS, CARLA Interval history: Patient was seen today for follow-up on multiple renal related issues, patient is critically ill in the ICU intubated has had hemodialysis yesterday, and is currently on Friday schedule we do not have any new labs today Has been initiated on renal placement therapy due to acute renal failure likely due to vancomycin toxicity Interdisciplinary notes were also reviewed Vitals intake output medications were reviewed Past medical history: Reviewed Family, social history: Reviewed Allergies: Reviewed Physical examination General: No acute distress Vitals: Reviewed HEENT: Oral mucosa moist no icterus Neck: Supple no thyromegaly nodular mass or JVD Chest: Clear to auscultation anteriorly Heart: Regular rate and rhythm S1-S2 heard no S3-S4 Abdomen: Soft nontender no suprapubic masses no organomegaly Extremity: Dry skin less than 1+ edema Psych: No evidence of any agitation and aggression noted Derm: No petechial rash Assessment and plan: Acute kidney injury: Multifactorial in etiology most likely due to vancomycin toxicity currently dialysis dependent, possibility of acute tubular necrosis cannot be ruled out, he is currently on Friday and Friday schedule, We will increase treatment time to 4-1/2 hours, dialysis prescription has been changed Acute renal failure, patient remains dialysis dependent, we will consider doing a bladder scan today Patient will be reevaluated on a daily basis for ongoing need for renal replacement therapy. Anemia: Last hemoglobin was 7.7 he does need periodic follow-up of hemoglobin and hematocrit, Hyponatremia sodium was 129 he has had dialysis yesterday Patient will need follow-up labs which will be ordered Hyperphosphatemia is currently post dialysis we'll follow up on the labs Malnutrition albumin is currently 2.5 this is due to acute illness, renal failure, ejection etc. Respiratory failure remains intubated, Overall prognosis remains guarded to poor due to multiple comorbidities including the SIRS, shock, respiratory failure acute renal failure encephalopathy seizure activity, cardiac arrest, obesity, congestive heart failure, malignant hypertension Hyperkalemia: To monitor and follow Encephalopathy: Multifactorial, also does have seizure disorder respiratory failure and fever Renal prognosis remains very guarded at this time total critical care time spent at bedside 34 minutes We'll continue to follow and make recommendation from renal standpoint Objective - Vital Signs Vital signs: Vital Signs - 12hr 06/01/19 06/01/19 06/01/19 21:00 21:56 22:00 Temperature Pulse Rate 70 69 68 Pulse Rate [ From Monitor] Respiratory 25 H 25 H Rate Blood Pressure 156/76 156/76 154/78 O2 Sat by Pulse 94 92 Oximetry 06/01/19 06/01/19 06/02/19 23:00 23:25 00:00 Temperature 99.9 F H Pulse Rate 80 74 74 Pulse Rate [ 72 From Monitor] Respiratory 27 H 25 H 25 H Rate Blood Pressure 167/92 167/92 163/91 O2 Sat by Pulse 89 93 91 Oximetry 06/02/19 06/02/19 06/02/19 00:19 01:00 01:11 Temperature Pulse Rate 67 83 65 Pulse Rate [ From Monitor] Respiratory 26 H Rate Blood Pressure 163/91 168/93 168/93 O2 Sat by Pulse 93 91 Oximetry 06/02/19 06/02/19 06/02/19 02:00 03:00 04:00 Temperature 100.1 F H Pulse Rate 91 H 83 81 Pulse Rate [ 79 From Monitor] Respiratory 33 H 35 H 34 H Rate Blood Pressure 153/79 157/76 157/76 O2 Sat by Pulse 93 95 95 Oximetry 06/02/19 06/02/19 06/02/19 04:11 05:01 05:41 Temperature Pulse Rate 85 92 H 78 Pulse Rate [ From Monitor] Respiratory 34 H Rate Blood Pressure 158/62 158/62 144/87 O2 Sat by Pulse 95 91 Oximetry 06/02/19 06/02/19 06/02/19 06:00 07:00 07:50 Temperature Pulse Rate 81 68 68 Pulse Rate [ From Monitor] Respiratory 29 H 26 H Rate Blood Pressure 147/80 147/80 147/80 O2 Sat by Pulse 91 95 95 Oximetry - Lab 05/31/19 13:04 05/31/19 13:04 Most recent lab results ABG pH 7.375 pH Units (7.350-7.450) 06/01/19 04:33 ABG pCO2 42.7 mm Hg 06/01/19 04:33 ABG pO2 56.9 mm Hg (80.0-90.0) L 06/01/19 04:33 ABG HCO3 24.4 mmol/L (20.0-26.0) 06/01/19 04:33 ABG O2 Saturation 85.9 % (95.0-99.0) L 06/01/19 04:33 Calcium 7.4 mg/dL (8.4-10.2) L 05/31/19 13:04 Phosphorus 7.40 mg/dL (2.5-4.5) H 05/31/19 13:04 Magnesium 1.90 mg/dL (1.7-2.3) 05/31/19 13:04 Urine Creatinine 292.8 mg/dL (0.1-20.0) H 05/07/19 22:40 Urine Sodium 11 mmol/L 05/07/19 22:40 Urine Total Protein 269 mg/dL (5-11.8) H 05/07/19 22:40 Medications & Allergies - Medications Allergies/Adverse Reactions: Allergies No Known Allergies Allergy (Verified 05/01/19 20:27) Home Medications: Home Medications Medication Instructions Recorded Confirmed Last Taken Type No Known Home Medications [No 05/03/19 05/03/19 Unknown History Reported Home Medications] Active Medications: Generic Name Dose Route Start Last Admin Trade Name Gabrieleq PRN Reason Stop Dose Admin Albumin Human 25 gm 05/19/19 10:47 Alburx 25% (Albumin) IV ARIANE PRN Hypotension Alteplase, Recombinant 2 mg 05/25/19 09:30 05/28/19 21:15 Cathflo IV 2 mg ARIANE PRN Administration LINE FLUSH Lipase/Protease/Amylase 1 each 05/14/19 15:01 Pancreaze 10,500 Unit FEEDTUBE PRN PRN For Clogged Feeding Tube Dextrose 50 gm 05/01/19 20:24 D50w (25gm) Vial IV Q30MIN PRN Hypoglycemia Protocol Enoxaparin Sodium 30 mg 05/16/19 10:00 06/01/19 09:41 Enoxaparin SUB-Q 30 mg QDAY VICKEY Administration Epoetin Hugo 10,000 unit 05/19/19 10:47 05/29/19 12:53 Procrit IV 10,000 unit ARIANE PRN Administration hemodialysis Famotidine 20 mg 05/16/19 10:00 06/01/19 09:41 Pepcid PO 20 mg DAILY VICKEY Administration Hydralazine HCl 20 mg 05/13/19 08:09 06/02/19 01:11 Apresoline IV 20 mg Q4HR PRN Administration SBP >/=160 Fentanyl Citrate 2,000 mcg in 100 mls @ 10.195 mls/hr 05/01/19 22:00 06/02/19 05:31 Fentanyl Drip Premix IV 1 mcg/kg/hr TITR VICKEY 10.195 mls/hr Administration Protocol 1 MCG/KG/HR Propofol 1,000 mg in 100 mls @ 7.011 mls/hr 05/03/19 04:00 06/02/19 05:41 Diprivan 10 Mg/Ml IV 5 mcg/kg/min TITR VICKEY 7.011 mls/hr Administration Protocol 5 MCG/KG/MIN Sodium Chloride 500 mls @ 10 mls/hr 05/06/19 15:00 Nacl 0.9% 500 Ml IV DIRECT VICKEY Sodium Chloride 100 mls @ 999 mls/hr 05/19/19 10:47 05/20/19 08:14 Nacl 0.9% IV 999 mls/hr ARIANE PRN Administration Hypotension Insulin Human Lispro 0 unit 06/01/19 14:00 06/02/19 05:42 Humalog SUB-Q 6 unit Q6HR VICKEY Administration Protocol Labetalol HCl 100 mg 05/14/19 14:00 06/02/19 05:41 Labetalol PO 100 mg Q8HR VICKEY Administration Levetiracetam 750 mg 05/13/19 10:00 06/01/19 21:56 Keppra PO 750 mg BID VICKEY Administration Lorazepam 2 mg 05/06/19 06:22 05/10/19 16:17 Ativan IV 2 mg Q4H PRN Administration Seizures/AGITATION Methylprednisolone Sodium Succinate 125 mg 05/29/19 14:00 06/02/19 05:42 Solu-Medrol IV 125 mg Q8HR VICKEY Administration Scopolamine 1 each 05/20/19 12:00 05/20/19 12:52 Transderm-Scop TD 1 each Q72HR VICKEY Administration Simple Syrup 15 ml 05/14/19 15:01 Simple Syrup FEEDTUBE PRN PRN Hypoglycemia Simple Syrup 30 ml 05/14/19 15:01 Simple Syrup FEEDTUBE PRN PRN Hypoglycemia Sodium Bicarbonate 325 mg 05/14/19 15:01 Sodium Bicarbonate FEEDTUBE PRN PRN For Clogged Feeding Tube Sodium Chloride 10 ml 05/02/19 10:00 06/01/19 21:56 Sodium Chloride Flush Syringe 10 Ml IV 10 ml BID VICKEY Administration
--- NOTE | 2019-06-02 09:33 | Progress Note ---
Assessment and Plan Cultures: Blood cultures 05/11/19: no growth thus far Blood cultures 05/18/19 pending Sputum culture 05/11/19: no growth thus far urine culture: no growth resp culture: no growth Blood culture 05/18/2019: no growth thus far urine culture 05/20/2019: normal skin shandra, Jarad albicans sputum culture 05/20/2019: Jarad albicans Blood culture 05/23/2019: no growth A/P: 34-year-old male with obesity admitted with: #Fever, SIRS with shock: shock resolved, intermittently febrile. Initially felt to be ?aspiration related. Apparently was using CPAP. Persistent febrile again, likely ?UTI. Repeat UA showed pyuria, had indwelling Han which was removed again 05/20. Urine culture with normal skin shandra. Fevers now recurred since 05/17. Should eval for worsening pneumonia, sinusitis, but unable to fit in CT scan. candiduria also generally does not require treatment, but in this patient with recurrent fever, reasonable to consider a trial of fluconazole renally adjusted. Likely drug fever, given eosinophilia. #Diffuse rash with eosinophilia: abx classes were changed on 05/25/2019 and then all abx stopped on 05/27/2019. #Acute hypoxic hypercapneic respiratory failure, possibly obesity hypoven tilation syndrome: on the vent. Pulmonary managing. jarad in sputum does not need treatment, it almost never causes a pneumonia and is reflective of colonization, overgrowth in the setting of abx use #Morbid obesity #CARLA: creatinine elevated. dose abx accordingly. Now on HD via vascath #Elevated LFTs: RUQ US showed fatty liver, small GB sludge. Improving. #Acute encephalopathy with ?seizure activity: persistent fevers. Has been receiving empiric meningitis coverage #UTI: s/p han removal on 05/20 Recs: - continue off antibiotics - on steroids, fevers have resolved Burke Wilks MD, FACP [facility] ([facility] C: [phone] O: [phone] F: [phone] Subjective Date of service: 06/02/19 Principal diagnosis: HF; acute hypoxemic resp failure, SIRS, CARLA Interval history: No significant fevers. Remains stable. Remains on the vent. Objective - Exam Narrative Exam: Physical Exam: Constitutional: sedated, intubated. Morbid obesity Head, Ears, Nose: Normocephalic, atraumatic. External ears, nose normal Eyes: Conjunctivae/corneas clear. No icterus. No ptosis. Neck: intubated Oral: intubated Cardiovascular: S1, S2 normal. Respiratory: Good air entry, clear to auscultation bilaterally GI: Soft, non-tender; bowel sounds normal. No peritoneal signs Musculoskeletal: No pedal edema, no cyanosis. Skin: rash improving with faint erythema and some scaly areas Hem/Lymphatic: No palpable cervical or supraclavicular nodes. No lymphangitis Psych: no agitation Neurological: sedated, intubated, on vent - Constitutional Vitals: Vital Signs Temp Pulse Resp BP Pulse Ox 99.0 F 108 H 29 H 135/78 90 06/02/19 08:00 06/02/19 08:00 06/02/19 08:00 06/02/19 08:00 06/02/19 08:00 Temperature -Last 24 Hours Temperature 99.0 F Temperature 100.1 F Temperature 99.9 F Temperature 99.6 F Temperature 99.2 F Temperature 98.9 F Temperature 99.0 F Temperature 98.2 F - Labs CBC & Chem 7: 05/31/19 13:04 05/31/19 13:04 Labs: Abnormal lab results 06/01/19 06/01/19 06/02/19 Range/Units 12:31 18:20 00:00 POC Glucose 217 H 265 H 279 H (70-105) 06/02/19 Range/Units 05:33 POC Glucose 259 H (70-105)
[2019-06-02] MEDS: levETIRAcetam 500 MG/5 ML ORAL LIQD PO SCH ×2 (09:45→21:12)
[2019-06-02] MEDS: FAMOTIDINE 20 MG TAB PO SCH (09:45)
[2019-06-02] MEDS: ENOXAPARIN 30 MG/0.3 ML INJ SUB-Q SCH (09:45)
[2019-06-02 11:48] LABS: Hematocrit 24.4 % (35.5-45.6); Hemoglobin 7.9 gm/dl (11.8-15.2); Mean Corpuscular HGB Conc 33 % (32-34); Mean Corpuscular Volume 84 fl (84-94); Platelet Count 251 K/mm3 (140-440); Red Blood Count 2.92 M/mm3 (3.65-5.03); Red Cell Distribution Width 17.4 % (13.2-15.2)
[2019-06-02 12:03] LABS: Albumin 2.7 g/dL (3.9-5); Calcium 7.9 mg/dL (8.4-10.2)
[2019-06-02 12:42] LABS: Basophils % (Manual) 0 % (0.0-1.8); Eosinophils % (Manual) 0 % (0.0-4.3); Total Cells Counted 100
[2019-06-02 12:43] LABS: Anisocytosis Few; Platelet Estimate Consistent w Auto
--- NOTE | 2019-06-02 13:30 | Progress Note ---
Assessment and Plan 34 y/o male with acute hypoxic, hypercapnic respiratory failure currently ventilated and sedated, now with persistent fevers and seizure and on HD 06/02/2019: PEEP down to 10 today. Sats are stable. Fever has resolved. Will continue steroids today, consider weaning post extubation. Today is day 32 of intubation. Hopeful trial of extubation, maybe even later this week. 1. ID: Patient unable to fit in scanner so CT of head sinus, chest will not happen. ID has placed back on renally adjusted Vanc. he has grown out jarad from urine and a tracheal aspirate 2. Pulm: FIO2 now @ 40%. ABG was good. Will wean after HD today. Can start to come down on PEEP. Will drop to 12 3. Renal: HD per renal, will need permacath per vascular notes if patient can be afebrile. 4. Day number of 32 of intubation. 5. Trying to avoid trach as much as possible. He is on his fourth week of intubation. However still requiring high levels of PEEP. At this point, once weaned to normal PEEP levels, hoping that we can extubate. CCT 31 minutes. Subjective Date of service: 06/02/19 Principal diagnosis: HF; acute hypoxemic resp failure, SIRS, CARLA Interval history: No acute events. Down to 30%. I just dropped PEEP to 10. Tolerating well. Objective Vital Signs - 12hr 06/02/19 06/02/19 06/02/19 02:00 03:00 04:00 Temperature 100.1 F H Pulse Rate 91 H 83 81 Pulse Rate [ 79 From Monitor] Respiratory 33 H 35 H 34 H Rate Blood Pressure 153/79 157/76 157/76 O2 Sat by Pulse 93 95 95 Oximetry 06/02/19 06/02/19 06/02/19 04:11 05:01 05:41 Temperature Pulse Rate 85 92 H 78 Pulse Rate [ From Monitor] Respiratory 34 H Rate Blood Pressure 158/62 158/62 144/87 O2 Sat by Pulse 95 91 Oximetry 06/02/19 06/02/19 06/02/19 06:00 07:00 07:50 Temperature Pulse Rate 81 68 68 Pulse Rate [ From Monitor] Respiratory 29 H 26 H Rate Blood Pressure 147/80 147/80 147/80 O2 Sat by Pulse 91 95 95 Oximetry 06/02/19 06/02/19 06/02/19 08:00 09:00 10:00 Temperature 99.0 F Pulse Rate 108 H 74 75 Pulse Rate [ 108 H From Monitor] Respiratory 29 H 26 H 24 Rate Blood Pressure 135/78 157/88 151/92 O2 Sat by Pulse 90 92 92 Oximetry 06/02/19 06/02/19 06/02/19 11:00 12:00 12:42 Temperature 99.2 F Pulse Rate 65 81 65 Pulse Rate [ 81 From Monitor] Respiratory 25 H 24 Rate Blood Pressure 139/76 156/87 139/76 O2 Sat by Pulse 95 92 95 Oximetry Constitutional: other (morbidly obese male, sedated on vent, orally intubated) Eyes: non-icteric ENT: oropharynx moist Neck: other (extremely large in circumference) Effort: normal Ascultation: Bilateral: diminished breath sounds (secondary to body habitus) Cardiovascular: regular rate and rhythm (no mrg) Gastrointestinal: normoactive bowel sounds, non-tender, other (obese) Integumentary: other (L hand is wrapped) Extremities: no cyanosis, pink and warm, other (1+ generalized edema) Neurologic: unable to assess Psychiatric: other (unable to assess) CBC and BMP: 06/02/19 11:06 06/02/19 11:06 ABG, PT/INR, D-dimer: ABG POC ABG pH 7.449 (7.35-7.45) 06/02/19 05:25 ABG pH 7.375 pH Units (7.350-7.450) 06/01/19 04:33 POC ABG pCO2 38.9 (35-45) 06/02/19 05:25 ABG pCO2 42.7 mm Hg 06/01/19 04:33 POC ABG pO2 82 (80-105) 06/02/19 05:25 ABG pO2 56.9 mm Hg (80.0-90.0) L 06/01/19 04:33 POC ABG HCO3 26.9 (22-26 mml/L) 06/02/19 05:25 POC ABG Total CO2 28 (23-27mmol/L) 06/02/19 05:25 POC ABG O2 Sat 96 06/02/19 05:25 ABG O2 Saturation 85.9 % (95.0-99.0) L 01/07/20 04:33 PT/INR, D-dimer PT 15.4 Sec. (12.2-14.9) H 05/01/19 Unknown INR 1.23 (0.87-1.13) H 05/01/19 Unknown Abnormal lab findings: Abnormal Labs 05/01/19 05/01/19 05/01/19 17:50 19:26 22:36 WBC RBC Hgb Hct MCV MCH MCHC RDW Lymph % (Auto) [place] % (Auto) Eos % (Auto) Lymph # [place] # Eos # Seg Neutrophils % Seg Neuts % (Manual) Lymphocytes % (Manual) Monocytes % (Manual) Eosinophils % (Manual) Nucleated RBC % Seg Neutrophils # Seg Neutrophils # Man Lymphocytes # (Manual) Monocytes # (Manual) Eosinophils # (Manual) PT INR APTT POC ABG pH 7.272 L 7.331 L ABG pH POC ABG pCO2 52.8 H POC ABG pO2 ABG pO2 ABG HCO3 ABG O2 Saturation ABG Base Excess ABG Hemoglobin Oxyhemoglobin Sodium 136 L Potassium 6.5 H* Chloride 97.2 L Carbon Dioxide BUN 60 H Creatinine Glucose 113 H POC Glucose Uric Acid Calcium Phosphorus Magnesium 2.40 H AST 139 H ALT 154 H Total Creatine Kinase CK-MB (CK-2) Troponin T NT-Pro-B Natriuret Pep Total Protein Albumin 3.8 L Triglycerides HDL Cholesterol Urine WBC (Auto) Urine Creatinine Urine Total Protein Vancomycin Trough 05/01/19 05/01/19 05/01/19 Unknown Unknown Unknown WBC 16.1 H RBC Hgb Hct MCV MCH MCHC RDW 17.2 H Lymph % (Auto) [place] % (Auto) 9.6 H Eos % (Auto) Lymph # [place] # 1.5 H Eos # Seg Neutrophils % 73.0 H Seg Neuts % (Manual) Lymphocytes % (Manual) Monocytes % (Manual) Eosinophils % (Manual) Nucleated RBC % Seg Neutrophils # 11.7 H Seg Neutrophils # Man Lymphocytes # (Manual) Monocytes # (Manual) Eosinophils # (Manual) PT 15.4 H INR 1.23 H APTT 22.7 L POC ABG pH ABG pH POC ABG pCO2 POC ABG pO2 ABG pO2 ABG HCO3 ABG O2 Saturation ABG Base Excess ABG Hemoglobin Oxyhemoglobin Sodium Potassium Chloride Carbon Dioxide BUN Creatinine Glucose POC Glucose Uric Acid Calcium Phosphorus Magnesium AST ALT Total Creatine Kinase CK-MB (CK-2) Troponin T NT-Pro-B Natriuret Pep 6831 H Total Protein Albumin Triglycerides HDL Cholesterol Urine WBC (Auto) Urine Creatinine Urine Total Protein Vancomycin Trough 05/01/19 05/02/19 05/02/19 Unknown 00:06 00:06 WBC RBC Hgb Hct MCV MCH MCHC RDW Lymph % (Auto) [place] % (Auto) Eos % (Auto) Lymph # [place] # Eos # Seg Neutrophils % Seg Neuts % (Manual) Lymphocytes % (Manual) Monocytes % (Manual) Eosinophils % (Manual) Nucleated RBC % Seg Neutrophils # Seg Neutrophils # Man Lymphocytes # (Manual) Monocytes # (Manual) Eosinophils # (Manual) PT INR APTT POC ABG pH ABG pH POC ABG pCO2 POC ABG pO2 ABG pO2 ABG HCO3 ABG O2 Saturation ABG Base Excess ABG Hemoglobin Oxyhemoglobin Sodium Potassium Chloride Carbon Dioxide BUN Creatinine Glucose POC Glucose Uric Acid Calcium Phosphorus 4.90 H Magnesium AST ALT Total Creatine Kinase 226 H CK-MB (CK-2) 5.7 H Troponin T 0.044 H NT-Pro-B Natriuret Pep Total Protein Albumin Triglycerides 182 H HDL Cholesterol 18 L Urine WBC (Auto) Urine Creatinine Urine Total Protein Vancomycin Trough 05/02/19 05/02/19 05/02/19 02:08 04:40 04:41 WBC 17.6 H RBC Hgb Hct MCV MCH 27 L MCHC RDW 17.4 H Lymph % (Auto) 10.2 L [place] % (Auto) 11.0 H Eos % (Auto) Lymph # [place] # 1.9 H Eos # Seg Neutrophils % 78.0 H Seg Neuts % (Manual) Lymphocytes % (Manual) Monocytes % (Manual) Eosinophils % (Manual) Nucleated RBC % Seg Neutrophils # 13.8 H Seg Neutrophils # Man Lymphocytes # (Manual) Monocytes # (Manual) Eosinophils # (Manual) PT INR APTT POC ABG pH ABG pH POC ABG pCO2 46.8 H POC ABG pO2 63 L ABG pO2 ABG HCO3 ABG O2 Saturation ABG Base Excess ABG Hemoglobin Oxyhemoglobin Sodium Potassium Chloride 96.3 L Carbon Dioxide BUN 63 H Creatinine 1.7 H Glucose POC Glucose Uric Acid Calcium Phosphorus Magnesium AST ALT Total Creatine Kinase CK-MB (CK-2) Troponin T NT-Pro-B Natriuret Pep Total Protein Albumin Triglycerides HDL Cholesterol Urine WBC (Auto) Urine Creatinine Urine Total Protein Vancomycin Trough 05/02/19 05/02/19 05/02/19 04:41 04:41 16:05 WBC RBC Hgb Hct MCV MCH MCHC RDW Lymph % (Auto) [place] % (Auto) Eos % (Auto) Lymph # [place] # Eos # Seg Neutrophils % Seg Neuts % (Manual) Lymphocytes % (Manual) Monocytes % (Manual) Eosinophils % (Manual) Nucleated RBC % Seg Neutrophils # Seg Neutrophils # Man Lymphocytes # (Manual) Monocytes # (Manual) Eosinophils # (Manual) PT INR APTT POC ABG pH ABG pH POC ABG pCO2 POC ABG pO2 ABG pO2 66.6 L ABG HCO3 31.9 H ABG O2 Saturation 92.5 L ABG Base Excess 5.8 H ABG Hemoglobin 13.3 L Oxyhemoglobin 90.6 L Sodium Potassium Chloride 97.2 L Carbon Dioxide BUN 61 H Creatinine 1.8 H Glucose POC Glucose Uric Acid Calcium Phosphorus Magnesium AST ALT Total Creatine Kinase CK-MB (CK-2) 5.2 H Troponin T 0.067 H D NT-Pro-B Natriuret Pep Total Protein Albumin Triglycerides HDL Cholesterol Urine WBC (Auto) Urine Creatinine Urine Total Protein Vancomycin Trough 05/02/19 05/03/19 05/03/19 20:39 04:35 05:05 WBC 11.8 H RBC Hgb Hct MCV MCH 27 L MCHC 31 L RDW 17.2 H Lymph % (Auto) [place] % (Auto) Eos % (Auto) Lymph # [place] # Eos # Seg Neutrophils % Seg Neuts % (Manual) Lymphocytes % (Manual) Monocytes % (Manual) Eosinophils % (Manual) Nucleated RBC % Seg Neutrophils # Seg Neutrophils # Man Lymphocytes # (Manual) Monocytes # (Manual) Eosinophils # (Manual) PT INR APTT POC ABG pH ABG pH POC ABG pCO2 53.6 H 54.0 H POC ABG pO2 55 L 63 L ABG pO2 ABG HCO3 ABG O2 Saturation ABG Base Excess ABG Hemoglobin Oxyhemoglobin Sodium Potassium Chloride Carbon Dioxide BUN Creatinine Glucose POC Glucose Uric Acid Calcium Phosphorus Magnesium AST ALT Total Creatine Kinase CK-MB (CK-2) Troponin T NT-Pro-B Natriuret Pep Total Protein Albumin Triglycerides HDL Cholesterol Urine WBC (Auto) Urine Creatinine Urine Total Protein Vancomycin Trough 05/03/19 05/03/19 05/03/19 05:05 10:55 16:48 WBC RBC Hgb Hct MCV MCH MCHC RDW Lymph % (Auto) [place] % (Auto) Eos % (Auto) Lymph # [place] # Eos # Seg Neutrophils % Seg Neuts % (Manual) Lymphocytes % (Manual) Monocytes % (Manual) Eosinophils % (Manual) Nucleated RBC % Seg Neutrophils # Seg Neutrophils # Man Lymphocytes # (Manual) Monocytes # (Manual) Eosinophils # (Manual) PT INR APTT POC ABG pH 7.604 H ABG pH POC ABG pCO2 POC ABG pO2 58 L ABG pO2 ABG HCO3 ABG O2 Saturation ABG Base Excess ABG Hemoglobin Oxyhemoglobin Sodium Potassium Chloride Carbon Dioxide BUN 52 H Creatinine 1.9 H Glucose 103 H POC Glucose Uric Acid Calcium Phosphorus Magnesium AST ALT Total Creatine Kinase CK-MB (CK-2) Troponin T NT-Pro-B Natriuret Pep Total Protein Albumin Triglycerides HDL Cholesterol Urine WBC (Auto) 33.0 H Urine Creatinine Urine Total Protein Vancomycin Trough 05/04/19 05/04/19 05/04/19 04:49 06:50 06:50 WBC 16.0 H RBC Hgb Hct MCV MCH 27 L MCHC 31 L RDW 17.8 H Lymph % (Auto) [place] % (Auto) Eos % (Auto) Lymph # [place] # Eos # Seg Neutrophils % Seg Neuts % (Manual) Lymphocytes % (Manual) Monocytes % (Manual) Eosinophils % (Manual) Nucleated RBC % Seg Neutrophils # Seg Neutrophils # Man Lymphocytes # (Manual) Monocytes # (Manual) Eosinophils # (Manual) PT INR APTT POC ABG pH 7.273 L ABG pH POC ABG pCO2 POC ABG pO2 ABG pO2 ABG HCO3 ABG O2 Saturation ABG Base Excess ABG Hemoglobin Oxyhemoglobin Sodium 148 H Potassium 5.5 H Chloride Carbon Dioxide BUN 53 H Creatinine 3.3 H D Glucose 106 H POC Glucose Uric Acid Calcium 8.3 L Phosphorus Magnesium AST ALT Total Creatine Kinase CK-MB (CK-2) Troponin T NT-Pro-B Natriuret Pep Total Protein Albumin Triglycerides HDL Cholesterol Urine WBC (Auto) Urine Creatinine Urine Total Protein Vancomycin Trough 05/05/19 05/05/19 05/05/19 00:05 04:30 05:00 WBC RBC Hgb Hct MCV MCH MCHC RDW Lymph % (Auto) [place] % (Auto) Eos % (Auto) Lymph # [place] # Eos # Seg Neutrophils % Seg Neuts % (Manual) Lymphocytes % (Manual) Monocytes % (Manual) Eosinophils % (Manual) Nucleated RBC % Seg Neutrophils # Seg Neutrophils # Man Lymphocytes # (Manual) Monocytes # (Manual) Eosinophils # (Manual) PT INR APTT POC ABG pH 7.225 L ABG pH POC ABG pCO2 > 70 H POC ABG pO2 ABG pO2 ABG HCO3 ABG O2 Saturation ABG Base Excess ABG Hemoglobin Oxyhemoglobin Sodium 151 H Potassium 5.1 H Chloride Carbon Dioxide BUN 64 H Creatinine 3.5 H Glucose 117 H POC Glucose 141 H Uric Acid Calcium 7.5 L Phosphorus Magnesium AST 93 H ALT 65 H Total Creatine Kinase CK-MB (CK-2) Troponin T NT-Pro-B Natriuret Pep Total Protein Albumin 2.9 L Triglycerides HDL Cholesterol Urine WBC (Auto) Urine Creatinine Urine Total Protein Vancomycin Trough 05/05/19 05/05/19 05/05/19 05:00 12:02 17:46 WBC 12.0 H RBC Hgb 11.3 L Hct MCV MCH 27 L MCHC 30 L RDW 18.4 H Lymph % (Auto) 7.9 L [place] % (Auto) 10.2 H Eos % (Auto) Lymph # 1.0 L [place] # 1.2 H Eos # Seg Neutrophils % 80.8 H Seg Neuts % (Manual) Lymphocytes % (Manual) Monocytes % (Manual) Eosinophils % (Manual) Nucleated RBC % Seg Neutrophils # 9.7 H Seg Neutrophils # Man Lymphocytes # (Manual) Monocytes # (Manual) Eosinophils # (Manual) PT INR APTT POC ABG pH ABG pH POC ABG pCO2 POC ABG pO2 ABG pO2 ABG HCO3 ABG O2 Saturation ABG Base Excess ABG Hemoglobin Oxyhemoglobin Sodium Potassium Chloride Carbon Dioxide BUN Creatinine Glucose POC Glucose 125 H 112 H Uric Acid Calcium Phosphorus Magnesium AST ALT Total Creatine Kinase CK-MB (CK-2) Troponin T NT-Pro-B Natriuret Pep Total Protein Albumin Triglycerides HDL Cholesterol Urine WBC (Auto) Urine Creatinine Urine Total Protein Vancomycin Trough 05/05/19 05/06/19 05/06/19 23:42 03:58 04:45 WBC 11.4 H RBC Hgb 10.7 L Hct 34.2 L MCV MCH 27 L MCHC 31 L RDW 16.9 H Lymph % (Auto) [place] % (Auto) Eos % (Auto) Lymph # [place] # Eos # Seg Neutrophils % Seg Neuts % (Manual) Lymphocytes % (Manual) Monocytes % (Manual) Eosinophils % (Manual) Nucleated RBC % Seg Neutrophils # Seg Neutrophils # Man Lymphocytes # (Manual) Monocytes # (Manual) Eosinophils # (Manual) PT INR APTT POC ABG pH ABG pH POC ABG pCO2 62.4 H POC ABG pO2 111 H ABG pO2 ABG HCO3 ABG O2 Saturation ABG Base Excess ABG Hemoglobin Oxyhemoglobin Sodium Potassium Chloride Carbon Dioxide BUN Creatinine Glucose POC Glucose 128 H Uric Acid Calcium Phosphorus Magnesium AST ALT Total Creatine Kinase CK-MB (CK-2) Troponin T NT-Pro-B Natriuret Pep Total Protein Albumin Triglycerides HDL Cholesterol Urine WBC (Auto) Urine Creatinine Urine Total Protein Vancomycin Trough 05/06/19 05/06/19 05/06/19 04:45 05:33 12:30 WBC RBC Hgb Hct MCV MCH MCHC RDW Lymph % (Auto) [place] % (Auto) Eos % (Auto) Lymph # [place] # Eos # Seg Neutrophils % Seg Neuts % (Manual) Lymphocytes % (Manual) Monocytes % (Manual) Eosinophils % (Manual) Nucleated RBC % Seg Neutrophils # Seg Neutrophils # Man Lymphocytes # (Manual) Monocytes # (Manual) Eosinophils # (Manual) PT INR APTT POC ABG pH ABG pH POC ABG pCO2 POC ABG pO2 ABG pO2 ABG HCO3 ABG O2 Saturation ABG Base Excess ABG Hemoglobin Oxyhemoglobin Sodium 149 H Potassium Chloride Carbon Dioxide 31 H BUN 67 H Creatinine 3.2 H Glucose 125 H POC Glucose 117 H 116 H Uric Acid Calcium 7.5 L Phosphorus Magnesium AST ALT Total Creatine Kinase CK-MB (CK-2) Troponin T NT-Pro-B Natriuret Pep Total Protein Albumin Triglycerides HDL Cholesterol Urine WBC (Auto) Urine Creatinine Urine Total Protein Vancomycin Trough 05/06/19 05/06/19 05/07/19 18:34 23:16 05:22 WBC RBC Hgb Hct MCV MCH MCHC RDW Lymph % (Auto) [place] % (Auto) Eos % (Auto) Lymph # [place] # Eos # Seg Neutrophils % Seg Neuts % (Manual) Lymphocytes % (Manual) Monocytes % (Manual) Eosinophils % (Manual) Nucleated RBC % Seg Neutrophils # Seg Neutrophils # Man Lymphocytes # (Manual) Monocytes # (Manual) Eosinophils # (Manual) PT INR APTT POC ABG pH ABG pH POC ABG pCO2 POC ABG pO2 ABG pO2 ABG HCO3 ABG O2 Saturation ABG Base Excess ABG Hemoglobin Oxyhemoglobin Sodium Potassium Chloride Carbon Dioxide BUN Creatinine Glucose POC Glucose 128 H 143 H 166 H Uric Acid Calcium Phosphorus Magnesium AST ALT Total Creatine Kinase CK-MB (CK-2) Troponin T NT-Pro-B Natriuret Pep Total Protein Albumin Triglycerides HDL Cholesterol Urine WBC (Auto) Urine Creatinine Urine Total Protein Vancomycin Trough 05/07/19 05/07/19 05/07/19 06:33 07:03 09:35 WBC RBC Hgb Hct MCV MCH MCHC RDW Lymph % (Auto) [place] % (Auto) Eos % (Auto) Lymph # [place] # Eos # Seg Neutrophils % Seg Neuts % (Manual) Lymphocytes % (Manual) Monocytes % (Manual) Eosinophils % (Manual) Nucleated RBC % Seg Neutrophils # Seg Neutrophils # Man Lymphocytes # (Manual) Monocytes # (Manual) Eosinophils # (Manual) PT INR APTT POC ABG pH 7.263 L 7.288 L ABG pH POC ABG pCO2 POC ABG pO2 51 L 56 L ABG pO2 ABG HCO3 ABG O2 Saturation ABG Base Excess ABG Hemoglobin Oxyhemoglobin Sodium Potassium Chloride Carbon Dioxide BUN 76 H Creatinine 3.2 H Glucose 147 H POC Glucose Uric Acid Calcium 7.9 L Phosphorus Magnesium AST ALT Total Creatine Kinase CK-MB (CK-2) Troponin T NT-Pro-B Natriuret Pep Total Protein Albumin Triglycerides HDL Cholesterol Urine WBC (Auto) Urine Creatinine Urine Total Protein Vancomycin Trough 05/07/19 05/07/19 05/07/19 09:35 12:17 13:45 WBC 13.4 H RBC Hgb 11.6 L Hct MCV MCH 27 L MCHC 31 L RDW 17.5 H Lymph % (Auto) [place] % (Auto) Eos % (Auto) Lymph # [place] # Eos # Seg Neutrophils % Seg Neuts % (Manual) Lymphocytes % (Manual) Monocytes % (Manual) Eosinophils % (Manual) Nucleated RBC % Seg Neutrophils # Seg Neutrophils # Man Lymphocytes # (Manual) Monocytes # (Manual) Eosinophils # (Manual) PT INR APTT POC ABG pH ABG pH POC ABG pCO2 POC ABG pO2 ABG pO2 ABG HCO3 ABG O2 Saturation ABG Base Excess ABG Hemoglobin Oxyhemoglobin Sodium Potassium Chloride Carbon Dioxide BUN Creatinine Glucose POC Glucose 130 H Uric Acid 18.0 H Calcium Phosphorus Magnesium AST ALT Total Creatine Kinase CK-MB (CK-2) Troponin T NT-Pro-B Natriuret Pep Total Protein Albumin Triglycerides HDL Cholesterol Urine WBC (Auto) Urine Creatinine Urine Total Protein Vancomycin Trough 05/07/19 05/07/19 05/08/19 17:39 22:40 05:06 WBC RBC Hgb Hct MCV MCH MCHC RDW Lymph % (Auto) [place] % (Auto) Eos % (Auto) Lymph # [place] # Eos # Seg Neutrophils % Seg Neuts % (Manual) Lymphocytes % (Manual) Monocytes % (Manual) Eosinophils % (Manual) Nucleated RBC % Seg Neutrophils # Seg Neutrophils # Man Lymphocytes # (Manual) Monocytes # (Manual) Eosinophils # (Manual) PT INR APTT POC ABG pH ABG pH POC ABG pCO2 POC ABG pO2 ABG pO2 ABG HCO3 ABG O2 Saturation ABG Base Excess ABG Hemoglobin Oxyhemoglobin Sodium Potassium Chloride Carbon Dioxide BUN Creatinine Glucose POC Glucose 116 H 148 H Uric Acid Calcium Phosphorus Magnesium AST ALT Total Creatine Kinase CK-MB (CK-2) Troponin T NT-Pro-B Natriuret Pep Total Protein Albumin Triglycerides HDL Cholesterol Urine WBC (Auto) Urine Creatinine 292.8 H Urine Total Protein 269 H Vancomycin Trough 05/08/19 05/08/19 05/08/19 05:32 11:28 13:48 WBC RBC Hgb Hct MCV MCH MCHC RDW Lymph % (Auto) [place] % (Auto) Eos % (Auto) Lymph # [place] # Eos # Seg Neutrophils % Seg Neuts % (Manual) Lymphocytes % (Manual) Monocytes % (Manual) Eosinophils % (Manual) Nucleated RBC % Seg Neutrophils # Seg Neutrophils # Man Lymphocytes # (Manual) Monocytes # (Manual) Eosinophils # (Manual) PT INR APTT POC ABG pH ABG pH POC ABG pCO2 45.4 H POC ABG pO2 64 L ABG pO2 ABG HCO3 ABG O2 Saturation ABG Base Excess ABG Hemoglobin Oxyhemoglobin Sodium Potassium Chloride Carbon Dioxide BUN 73 H Creatinine 2.7 H Glucose 127 H POC Glucose 107 H Uric Acid Calcium 7.6 L Phosphorus Magnesium AST ALT Total Creatine Kinase CK-MB (CK-2) Troponin T NT-Pro-B Natriuret Pep Total Protein Albumin Triglycerides HDL Cholesterol Urine WBC (Auto) Urine Creatinine Urine Total Protein Vancomycin Trough 05/08/19 05/09/19 05/09/19 17:48 04:50 04:53 WBC RBC 3.07 L Hgb 8.5 L D Hct 29.3 L D MCV 96 H MCH MCHC 29 L RDW 18.1 H Lymph % (Auto) [place] % (Auto) Eos % (Auto) Lymph # [place] # Eos # Seg Neutrophils % Seg Neuts % (Manual) Lymphocytes % (Manual) Monocytes % (Manual) Eosinophils % (Manual) Nucleated RBC % Seg Neutrophils # Seg Neutrophils # Man Lymphocytes # (Manual) Monocytes # (Manual) Eosinophils # (Manual) PT INR APTT POC ABG pH 7.316 L ABG pH POC ABG pCO2 66.0 H POC ABG pO2 69 L ABG pO2 ABG HCO3 ABG O2 Saturation ABG Base Excess ABG Hemoglobin Oxyhemoglobin Sodium Potassium Chloride Carbon Dioxide BUN Creatinine Glucose POC Glucose 155 H Uric Acid Calcium Phosphorus Magnesium AST ALT Total Creatine Kinase CK-MB (CK-2) Troponin T NT-Pro-B Natriuret Pep Total Protein Albumin Triglycerides HDL Cholesterol Urine WBC (Auto) Urine Creatinine Urine Total Protein Vancomycin Trough 05/09/19 05/09/19 05/09/19 05:46 07:24 12:10 WBC RBC Hgb Hct MCV MCH MCHC RDW Lymph % (Auto) [place] % (Auto) Eos % (Auto) Lymph # [place] # Eos # Seg Neutrophils % Seg Neuts % (Manual) Lymphocytes % (Manual) Monocytes % (Manual) Eosinophils % (Manual) Nucleated RBC % Seg Neutrophils # Seg Neutrophils # Man Lymphocytes # (Manual) Monocytes # (Manual) Eosinophils # (Manual) PT INR APTT POC ABG pH ABG pH POC ABG pCO2 POC ABG pO2 ABG pO2 ABG HCO3 ABG O2 Saturation ABG Base Excess ABG Hemoglobin Oxyhemoglobin Sodium Potassium Chloride Carbon Dioxide BUN 73 H Creatinine 2.4 H Glucose 153 H POC Glucose 123 H 148 H Uric Acid Calcium 8.2 L Phosphorus Magnesium AST 45 H ALT Total Creatine Kinase CK-MB (CK-2) Troponin T NT-Pro-B Natriuret Pep Total Protein 6.0 L Albumin 1.9 L Triglycerides HDL Cholesterol Urine WBC (Auto) Urine Creatinine Urine Total Protein Vancomycin Trough 05/09/19 05/09/19 05/10/19 18:23 23:26 04:52 WBC RBC Hgb Hct MCV MCH MCHC RDW Lymph % (Auto) [place] % (Auto) Eos % (Auto) Lymph # [place] # Eos # Seg Neutrophils % Seg Neuts % (Manual) Lymphocytes % (Manual) Monocytes % (Manual) Eosinophils % (Manual) Nucleated RBC % Seg Neutrophils # Seg Neutrophils # Man Lymphocytes # (Manual) Monocytes # (Manual) Eosinophils # (Manual) PT INR APTT POC ABG pH 7.305 L ABG pH POC ABG pCO2 62.6 H POC ABG pO2 ABG pO2 ABG HCO3 ABG O2 Saturation ABG Base Excess ABG Hemoglobin Oxyhemoglobin Sodium Potassium Chloride Carbon Dioxide BUN Creatinine Glucose POC Glucose 147 H 121 H Uric Acid Calcium Phosphorus Magnesium AST ALT Total Creatine Kinase CK-MB (CK-2) Troponin T NT-Pro-B Natriuret Pep Total Protein Albumin Triglycerides HDL Cholesterol Urine WBC (Auto) Urine Creatinine Urine Total Protein Vancomycin Trough 05/10/19 05/10/19 05/10/19 05:00 05:00 05:50 WBC RBC Hgb 10.3 L Hct 33.7 L MCV MCH 27 L MCHC 31 L RDW 17.0 H Lymph % (Auto) [place] % (Auto) Eos % (Auto) Lymph # [place] # Eos # Seg Neutrophils % Seg Neuts % (Manual) Lymphocytes % (Manual) Monocytes % (Manual) Eosinophils % (Manual) Nucleated RBC % Seg Neutrophils # Seg Neutrophils # Man Lymphocytes # (Manual) Monocytes # (Manual) Eosinophils # (Manual) PT INR APTT POC ABG pH ABG pH POC ABG pCO2 POC ABG pO2 ABG pO2 ABG HCO3 ABG O2 Saturation ABG Base Excess ABG Hemoglobin Oxyhemoglobin Sodium 147 H Potassium Chloride Carbon Dioxide BUN 70 H Creatinine 2.6 H Glucose 155 H POC Glucose 158 H Uric Acid Calcium 8.2 L Phosphorus Magnesium AST ALT Total Creatine Kinase CK-MB (CK-2) Troponin T NT-Pro-B Natriuret Pep Total Protein 6.1 L Albumin 2.5 L Triglycerides HDL Cholesterol Urine WBC (Auto) Urine Creatinine Urine Total Protein Vancomycin Trough 05/10/19 05/11/19 05/11/19 13:14 07:26 11:40 WBC RBC Hgb Hct MCV MCH MCHC RDW Lymph % (Auto) [place] % (Auto) Eos % (Auto) Lymph # [place] # Eos # Seg Neutrophils % Seg Neuts % (Manual) Lymphocytes % (Manual) Monocytes % (Manual) Eosinophils % (Manual) Nucleated RBC % Seg Neutrophils # Seg Neutrophils # Man Lymphocytes # (Manual) Monocytes # (Manual) Eosinophils # (Manual) PT INR APTT POC ABG pH ABG pH POC ABG pCO2 48.0 H POC ABG pO2 58 L ABG pO2 ABG HCO3 ABG O2 Saturation ABG Base Excess ABG Hemoglobin Oxyhemoglobin Sodium 147 H Potassium Chloride 107.2 H Carbon Dioxide BUN 67 H Creatinine 2.6 H Glucose 121 H POC Glucose 159 H Uric Acid Calcium Phosphorus Magnesium AST ALT Total Creatine Kinase CK-MB (CK-2) Troponin T NT-Pro-B Natriuret Pep Total Protein Albumin Triglycerides HDL Cholesterol Urine WBC (Auto) Urine Creatinine Urine Total Protein Vancomycin Trough 05/11/19 05/11/19 05/12/19 18:13 23:46 04:40 WBC RBC Hgb Hct MCV MCH MCHC RDW Lymph % (Auto) [place] % (Auto) Eos % (Auto) Lymph # [place] # Eos # Seg Neutrophils % Seg Neuts % (Manual) Lymphocytes % (Manual) Monocytes % (Manual) Eosinophils % (Manual) Nucleated RBC % Seg Neutrophils # Seg Neutrophils # Man Lymphocytes # (Manual) Monocytes # (Manual) Eosinophils # (Manual) PT INR APTT POC ABG pH ABG pH 7.264 L POC ABG pCO2 POC ABG pO2 ABG pO2 66.8 L ABG HCO3 31.0 H ABG O2 Saturation 92.0 L ABG Base Excess ABG Hemoglobin 10.3 L Oxyhemoglobin 90.1 L Sodium Potassium Chloride Carbon Dioxide BUN Creatinine Glucose POC Glucose 120 H 121 H Uric Acid Calcium Phosphorus Magnesium AST ALT Total Creatine Kinase CK-MB (CK-2) Troponin T NT-Pro-B Natriuret Pep Total Protein Albumin Triglycerides HDL Cholesterol Urine WBC (Auto) Urine Creatinine Urine Total Protein Vancomycin Trough 05/12/19 05/12/19 05/12/19 04:45 04:45 11:14 WBC RBC Hgb 10.2 L Hct 32.4 L MCV MCH MCHC 31 L RDW 17.2 H Lymph % (Auto) [place] % (Auto) Eos % (Auto) Lymph # [place] # Eos # Seg Neutrophils % Seg Neuts % (Manual) Lymphocytes % (Manual) Monocytes % (Manual) Eosinophils % (Manual) Nucleated RBC % Seg Neutrophils # Seg Neutrophils # Man Lymphocytes # (Manual) Monocytes # (Manual) Eosinophils # (Manual) PT INR APTT POC ABG pH 7.284 L ABG pH POC ABG pCO2 67.8 H POC ABG pO2 ABG pO2 ABG HCO3 ABG O2 Saturation ABG Base Excess ABG Hemoglobin Oxyhemoglobin Sodium Potassium Chloride Carbon Dioxide BUN 63 H Creatinine 2.4 H Glucose 110 H POC Glucose Uric Acid Calcium Phosphorus Magnesium AST ALT Total Creatine Kinase CK-MB (CK-2) Troponin T NT-Pro-B Natriuret Pep Total Protein Albumin Triglycerides HDL Cholesterol Urine WBC (Auto) Urine Creatinine Urine Total Protein Vancomycin Trough 05/12/19 05/12/19 05/13/19 11:44 23:11 04:30 WBC RBC Hgb Hct MCV MCH MCHC RDW Lymph % (Auto) [place] % (Auto) Eos % (Auto) Lymph # [place] # Eos # Seg Neutrophils % Seg Neuts % (Manual) Lymphocytes % (Manual) Monocytes % (Manual) Eosinophils % (Manual) Nucleated RBC % Seg Neutrophils # Seg Neutrophils # Man Lymphocytes # (Manual) Monocytes # (Manual) Eosinophils # (Manual) PT INR APTT POC ABG pH ABG pH 7.288 L POC ABG pCO2 POC ABG pO2 ABG pO2 109.7 H ABG HCO3 30.9 H ABG O2 Saturation ABG Base Excess 3.2 H ABG Hemoglobin 9.6 L Oxyhemoglobin Sodium Potassium Chloride Carbon Dioxide BUN Creatinine Glucose POC Glucose 126 H 147 H Uric Acid Calcium Phosphorus Magnesium AST ALT Total Creatine Kinase CK-MB (CK-2) Troponin T NT-Pro-B Natriuret Pep Total Protein Albumin Triglycerides HDL Cholesterol Urine WBC (Auto) Urine Creatinine Urine Total Protein Vancomycin Trough 05/13/19 05/13/19 05/14/19 06:27 11:58 04:00 WBC RBC 3.16 L Hgb 9.3 L Hct 27.9 L MCV MCH MCHC RDW 17.1 H Lymph % (Auto) [place] % (Auto) Eos % (Auto) Lymph # [place] # Eos # Seg Neutrophils % Seg Neuts % (Manual) Lymphocytes % (Manual) Monocytes % (Manual) Eosinophils % (Manual) Nucleated RBC % Seg Neutrophils # Seg Neutrophils # Man Lymphocytes # (Manual) Monocytes # (Manual) Eosinophils # (Manual) PT INR APTT POC ABG pH ABG pH POC ABG pCO2 POC ABG pO2 ABG pO2 ABG HCO3 ABG O2 Saturation ABG Base Excess ABG Hemoglobin Oxyhemoglobin Sodium Potassium Chloride Carbon Dioxide BUN Creatinine Glucose POC Glucose 113 H 130 H Uric Acid Calcium Phosphorus Magnesium AST ALT Total Creatine Kinase CK-MB (CK-2) Troponin T NT-Pro-B Natriuret Pep Total Protein Albumin Triglycerides HDL Cholesterol Urine WBC (Auto) Urine Creatinine Urine Total Protein Vancomycin Trough 05/14/19 05/14/19 05/14/19 04:00 04:34 05:32 WBC RBC Hgb Hct MCV MCH MCHC RDW Lymph % (Auto) [place] % (Auto) Eos % (Auto) Lymph # [place] # Eos # Seg Neutrophils % Seg Neuts % (Manual) Lymphocytes % (Manual) Monocytes % (Manual) Eosinophils % (Manual) Nucleated RBC % Seg Neutrophils # Seg Neutrophils # Man Lymphocytes # (Manual) Monocytes # (Manual) Eosinophils # (Manual) PT INR APTT POC ABG pH 7.328 L ABG pH POC ABG pCO2 61.7 H POC ABG pO2 ABG pO2 ABG HCO3 ABG O2 Saturation ABG Base Excess ABG Hemoglobin Oxyhemoglobin Sodium 135 L D Potassium Chloride Carbon Dioxide BUN 57 H Creatinine 2.2 H Glucose 115 H POC Glucose 115 H Uric Acid Calcium 8.1 L Phosphorus Magnesium AST ALT Total Creatine Kinase CK-MB (CK-2) Troponin T NT-Pro-B Natriuret Pep Total Protein Albumin Triglycerides HDL Cholesterol Urine WBC (Auto) Urine Creatinine Urine Total Protein Vancomycin Trough 05/14/19 05/15/19 05/15/19 12:11 05:10 05:24 WBC RBC Hgb Hct MCV MCH MCHC RDW Lymph % (Auto) [place] % (Auto) Eos % (Auto) Lymph # [place] # Eos # Seg Neutrophils % Seg Neuts % (Manual) Lymphocytes % (Manual) Monocytes % (Manual) Eosinophils % (Manual) Nucleated RBC % Seg Neutrophils # Seg Neutrophils # Man Lymphocytes # (Manual) Monocytes # (Manual) Eosinophils # (Manual) PT INR APTT POC ABG pH ABG pH 7.342 L POC ABG pCO2 POC ABG pO2 ABG pO2 79.1 L ABG HCO3 28.2 H ABG O2 Saturation ABG Base Excess ABG Hemoglobin 7.0 L Oxyhemoglobin 94.4 L Sodium Potassium Chloride Carbon Dioxide BUN Creatinine Glucose POC Glucose 110 H 116 H Uric Acid Calcium Phosphorus Magnesium AST ALT Total Creatine Kinase CK-MB (CK-2) Troponin T NT-Pro-B Natriuret Pep Total Protein Albumin Triglycerides HDL Cholesterol Urine WBC (Auto) Urine Creatinine Urine Total Protein Vancomycin Trough 05/15/19 05/15/19 05/16/19 09:00 18:12 04:50 WBC RBC Hgb Hct MCV MCH MCHC RDW Lymph % (Auto) [place] % (Auto) Eos % (Auto) Lymph # [place] # Eos # Seg Neutrophils % Seg Neuts % (Manual) Lymphocytes % (Manual) Monocytes % (Manual) Eosinophils % (Manual) Nucleated RBC % Seg Neutrophils # Seg Neutrophils # Man Lymphocytes # (Manual) Monocytes # (Manual) Eosinophils # (Manual) PT INR APTT POC ABG pH ABG pH 7.250 L POC ABG pCO2 POC ABG pO2 ABG pO2 76.4 L ABG HCO3 ABG O2 Saturation 94.6 L ABG Base Excess -3.1 L ABG Hemoglobin 9.7 L Oxyhemoglobin 92.4 L Sodium Potassium Chloride Carbon Dioxide BUN Creatinine Glucose POC Glucose 110 H Uric Acid Calcium Phosphorus Magnesium AST ALT Total Creatine Kinase CK-MB (CK-2) Troponin T NT-Pro-B Natriuret Pep Total Protein Albumin Triglycerides HDL Cholesterol Urine WBC (Auto) Urine Creatinine Urine Total Protein Vancomycin Trough 20.5 H 05/16/19 05/16/19 05/17/19 05:50 05:50 04:20 WBC RBC 3.36 L 3.44 L Hgb 9.4 L 9.3 L Hct 29.1 L 29.7 L MCV MCH 27 L MCHC 31 L RDW 17.6 H 17.6 H Lymph % (Auto) [place] % (Auto) Eos % (Auto) Lymph # [place] # Eos # Seg Neutrophils % Seg Neuts % (Manual) 77.0 H Lymphocytes % (Manual) 5.0 L Monocytes % (Manual) Eosinophils % (Manual) 10.0 H Nucleated RBC % Seg Neutrophils # Seg Neutrophils # Man Lymphocytes # (Manual) 0.5 L Monocytes # (Manual) Eosinophils # (Manual) 0.9 H PT INR APTT POC ABG pH ABG pH POC ABG pCO2 POC ABG pO2 ABG pO2 ABG HCO3 ABG O2 Saturation ABG Base Excess ABG Hemoglobin Oxyhemoglobin Sodium Potassium Chloride Carbon Dioxide BUN 83 H Creatinine 4.4 H D Glucose 118 H POC Glucose Uric Acid Calcium Phosphorus Magnesium AST ALT Total Creatine Kinase CK-MB (CK-2) Troponin T NT-Pro-B Natriuret Pep Total Protein Albumin Triglycerides HDL Cholesterol Urine WBC (Auto) Urine Creatinine Urine Total Protein Vancomycin Trough 05/17/19 05/17/19 05/18/19 04:30 Unknown 01:50 WBC RBC 3.49 L Hgb 9.4 L Hct 30.0 L MCV MCH 27 L MCHC 31 L RDW 17.8 H Lymph % (Auto) 7.9 L [place] % (Auto) 15.4 H Eos % (Auto) 6.3 H Lymph # 0.7 L [place] # 1.4 H Eos # 0.6 H Seg Neutrophils % 70.2 H Seg Neuts % (Manual) Lymphocytes % (Manual) Monocytes % (Manual) Eosinophils % (Manual) Nucleated RBC % Seg Neutrophils # Seg Neutrophils # Man Lymphocytes # (Manual) Monocytes # (Manual) Eosinophils # (Manual) PT INR APTT POC ABG pH ABG pH 7.272 L POC ABG pCO2 POC ABG pO2 ABG pO2 75.7 L ABG HCO3 ABG O2 Saturation 93.8 L ABG Base Excess -3.0 L ABG Hemoglobin 7.8 L Oxyhemoglobin 91.6 L Sodium Potassium 5.2 H Chloride Carbon Dioxide BUN 96 H Creatinine 5.7 H Glucose 112 H POC Glucose Uric Acid Calcium Phosphorus Magnesium AST ALT Total Creatine Kinase CK-MB (CK-2) Troponin T NT-Pro-B Natriuret Pep Total Protein Albumin Triglycerides 173 H HDL Cholesterol Urine WBC (Auto) Urine Creatinine Urine Total Protein Vancomycin Trough 05/18/19 05/18/19 05/18/19 01:50 04:41 05:24 WBC RBC Hgb Hct MCV MCH MCHC RDW Lymph % (Auto) [place] % (Auto) Eos % (Auto) Lymph # [place] # Eos # Seg Neutrophils % Seg Neuts % (Manual) Lymphocytes % (Manual) Monocytes % (Manual) Eosinophils % (Manual) Nucleated RBC % Seg Neutrophils # Seg Neutrophils # Man Lymphocytes # (Manual) Monocytes # (Manual) Eosinophils # (Manual) PT INR APTT POC ABG pH 7.260 L ABG pH POC ABG pCO2 54.9 H POC ABG pO2 ABG pO2 ABG HCO3 ABG O2 Saturation ABG Base Excess ABG Hemoglobin Oxyhemoglobin Sodium Potassium 5.6 H Chloride Carbon Dioxide BUN 104 H Creatinine 6.6 H Glucose 107 H POC Glucose 106 H Uric Acid Calcium Phosphorus Magnesium AST ALT Total Creatine Kinase CK-MB (CK-2) Troponin T NT-Pro-B Natriuret Pep Total Protein Albumin Triglycerides HDL Cholesterol Urine WBC (Auto) Urine Creatinine Urine Total Protein Vancomycin Trough 05/18/19 05/18/19 05/19/19 11:34 23:26 04:06 WBC RBC 3.22 L Hgb 8.8 L Hct 27.3 L MCV MCH 27 L MCHC RDW 17.5 H Lymph % (Auto) [place] % (Auto) Eos % (Auto) Lymph # [place] # Eos # Seg Neutrophils % Seg Neuts % (Manual) 74.0 H Lymphocytes % (Manual) 4.0 L Monocytes % (Manual) 11.0 H Eosinophils % (Manual) 7.0 H Nucleated RBC % 1.0 H Seg Neutrophils # Seg Neutrophils # Man Lymphocytes # (Manual) 0.3 L Monocytes # (Manual) 0.9 H Eosinophils # (Manual) 0.6 H PT INR APTT POC ABG pH ABG pH POC ABG pCO2 POC ABG pO2 ABG pO2 ABG HCO3 ABG O2 Saturation ABG Base Excess ABG Hemoglobin Oxyhemoglobin Sodium Potassium Chloride Carbon Dioxide BUN Creatinine Glucose POC Glucose 152 H 112 H Uric Acid Calcium Phosphorus Magnesium AST ALT Total Creatine Kinase CK-MB (CK-2) Troponin T NT-Pro-B Natriuret Pep Total Protein Albumin Triglycerides HDL Cholesterol Urine WBC (Auto) Urine Creatinine Urine Total Protein Vancomycin Trough 05/19/19 05/19/19 05/20/19 04:06 06:00 04:00 WBC RBC 3.40 L Hgb 9.2 L Hct 28.6 L MCV MCH 27 L MCHC RDW 17.6 H Lymph % (Auto) [place] % (Auto) Eos % (Auto) Lymph # [place] # Eos # Seg Neutrophils % Seg Neuts % (Manual) Lymphocytes % (Manual) 11.0 L Monocytes % (Manual) Eosinophils % (Manual) 14.0 H Nucleated RBC % Seg Neutrophils # Seg Neutrophils # Man Lymphocytes # (Manual) 1.1 L Monocytes # (Manual) Eosinophils # (Manual) 1.4 H PT INR APTT POC ABG pH ABG pH 7.315 L POC ABG pCO2 POC ABG pO2 ABG pO2 ABG HCO3 ABG O2 Saturation ABG Base Excess ABG Hemoglobin 6.7 L Oxyhemoglobin 94.1 L Sodium Potassium 5.2 H Chloride Carbon Dioxide 21 L BUN 110 H Creatinine 7.2 H Glucose POC Glucose Uric Acid Calcium 8.3 L Phosphorus Magnesium AST ALT Total Creatine Kinase CK-MB (CK-2) Troponin T NT-Pro-B Natriuret Pep Total Protein Albumin Triglycerides HDL Cholesterol Urine WBC (Auto) Urine Creatinine Urine Total Protein Vancomycin Trough 05/20/19 05/20/1919 04:00 05:48 12:00 WBC RBC Hgb Hct MCV MCH MCHC RDW Lymph % (Auto) [place] % (Auto) Eos % (Auto) Lymph # [place] # Eos # Seg Neutrophils % Seg Neuts % (Manual) Lymphocytes % (Manual) Monocytes % (Manual) Eosinophils % (Manual) Nucleated RBC % Seg Neutrophils # Seg Neutrophils # Man Lymphocytes # (Manual) Monocytes # (Manual) Eosinophils # (Manual) PT INR APTT POC ABG pH ABG pH 7.281 L POC ABG pCO2 POC ABG pO2 ABG pO2 78.7 L ABG HCO3 ABG O2 Saturation 94.5 L ABG Base Excess -3.0 L ABG Hemoglobin 9.9 L Oxyhemoglobin 92.5 L Sodium 136 L Potassium 5.7 H Chloride 96.3 L Carbon Dioxide BUN 125 H Creatinine 8.3 H Glucose 106 H POC Glucose Uric Acid Calcium Phosphorus Magnesium AST ALT Total Creatine Kinase CK-MB (CK-2) Troponin T NT-Pro-B Natriuret Pep Total Protein Albumin Triglycerides HDL Cholesterol Urine WBC (Auto) 26.0 H Urine Creatinine Urine Total Protein Vancomycin Trough 05/21/19 05/21/19 05/21/19 04:33 05:20 Unknown WBC RBC 3.38 L Hgb 9.1 L Hct 28.5 L MCV MCH 27 L MCHC RDW 17.4 H Lymph % (Auto) [place] % (Auto) Eos % (Auto) Lymph # [place] # Eos # Seg Neutrophils % Seg Neuts % (Manual) 71.0 H Lymphocytes % (Manual) 1.0 L Monocytes % (Manual) 11.0 H Eosinophils % (Manual) 6.0 H Nucleated RBC % Seg Neutrophils # Seg Neutrophils # Man Lymphocytes # (Manual) 0.1 L Monocytes # (Manual) 1.0 H Eosinophils # (Manual) 0.6 H PT INR APTT POC ABG pH 7.315 L ABG pH POC ABG pCO2 57.8 H POC ABG pO2 68 L ABG pO2 ABG HCO3 ABG O2 Saturation ABG Base Excess ABG Hemoglobin Oxyhemoglobin Sodium Potassium Chloride 96.3 L Carbon Dioxide BUN 102 H Creatinine 7.0 H Glucose 103 H POC Glucose Uric Acid Calcium Phosphorus Magnesium AST ALT Total Creatine Kinase CK-MB (CK-2) Troponin T NT-Pro-B Natriuret Pep Total Protein Albumin Triglycerides HDL Cholesterol Urine WBC (Auto) Urine Creatinine Urine Total Protein Vancomycin Trough 05/22/19 05/22/19 05/22/19 03:54 06:25 06:25 WBC RBC 3.22 L Hgb 8.6 L Hct 27.0 L MCV MCH 27 L MCHC RDW 17.5 H Lymph % (Auto) [place] % (Auto) 16.2 H Eos % (Auto) 10.8 H Lymph # [place] # 1.3 H Eos # 0.9 H Seg Neutrophils % Seg Neuts % (Manual) Lymphocytes % (Manual) 10.0 L Monocytes % (Manual) 13.0 H Eosinophils % (Manual) 8.0 H Nucleated RBC % Seg Neutrophils # Seg Neutrophils # Man Lymphocytes # (Manual) 0.9 L Monocytes # (Manual) 1.1 H Eosinophils # (Manual) 0.7 H PT INR APTT POC ABG pH 7.313 L ABG pH POC ABG pCO2 55.0 H POC ABG pO2 ABG pO2 ABG HCO3 ABG O2 Saturation ABG Base Excess ABG Hemoglobin Oxyhemoglobin Sodium 135 L Potassium Chloride 94.3 L Carbon Dioxide BUN 117 H Creatinine 7.8 H Glucose POC Glucose Uric Acid Calcium 8.2 L Phosphorus Magnesium AST ALT Total Creatine Kinase CK-MB (CK-2) Troponin T NT-Pro-B Natriuret Pep Total Protein Albumin Triglycerides HDL Cholesterol Urine WBC (Auto) Urine Creatinine Urine Total Protein Vancomycin Trough 05/23/19 05/24/19 05/24/19 05:21 05:00 05:00 WBC RBC 3.18 L Hgb 8.5 L Hct 26.7 L MCV MCH 27 L MCHC RDW 17.9 H Lymph % (Auto) [place] % (Auto) Eos % (Auto) Lymph # [place] # Eos # Seg Neutrophils % Seg Neuts % (Manual) Lymphocytes % (Manual) Monocytes % (Manual) Eosinophils % (Manual) Nucleated RBC % Seg Neutrophils # Seg Neutrophils # Man Lymphocytes # (Manual) Monocytes # (Manual) Eosinophils # (Manual) PT INR APTT POC ABG pH ABG pH POC ABG pCO2 49.7 H POC ABG pO2 73 L ABG pO2 ABG HCO3 ABG O2 Saturation ABG Base Excess ABG Hemoglobin Oxyhemoglobin Sodium Potassium Chloride 95.7 L Carbon Dioxide BUN 97 H Creatinine 6.5 H Glucose POC Glucose Uric Acid Calcium 8.0 L Phosphorus Magnesium AST ALT Total Creatine Kinase CK-MB (CK-2) Troponin T NT-Pro-B Natriuret Pep Total Protein Albumin Triglycerides HDL Cholesterol Urine WBC (Auto) Urine Creatinine Urine Total Protein Vancomycin Trough 05/24/19 05/25/19 05/25/19 06:17 04:22 15:45 WBC RBC 2.98 L Hgb 8.1 L Hct 24.9 L MCV MCH 27 L MCHC RDW 17.8 H Lymph % (Auto) [place] % (Auto) Eos % (Auto) Lymph # [place] # Eos # Seg Neutrophils % Seg Neuts % (Manual) Lymphocytes % (Manual) Monocytes % (Manual) Eosinophils % (Manual) Nucleated RBC % Seg Neutrophils # Seg Neutrophils # Man Lymphocytes # (Manual) Monocytes # (Manual) Eosinophils # (Manual) PT INR APTT POC ABG pH 7.330 L 7.313 L ABG pH POC ABG pCO2 52.5 H 51.1 H POC ABG pO2 77 L ABG pO2 ABG HCO3 ABG O2 Saturation ABG Base Excess ABG Hemoglobin Oxyhemoglobin Sodium Potassium Chloride Carbon Dioxide BUN Creatinine Glucose POC Glucose Uric Acid Calcium Phosphorus Magnesium AST ALT Total Creatine Kinase CK-MB (CK-2) Troponin T NT-Pro-B Natriuret Pep Total Protein Albumin Triglycerides HDL Cholesterol Urine WBC (Auto) Urine Creatinine Urine Total Protein Vancomycin Trough 05/25/19 05/26/19 05/26/19 15:45 04:13 05:00 WBC RBC 3.10 L Hgb 8.4 L Hct 26.0 L MCV MCH 27 L MCHC RDW 17.4 H Lymph % (Auto) [place] % (Auto) Eos % (Auto) Lymph # [place] # Eos # Seg Neutrophils % Seg Neuts % (Manual) Lymphocytes % (Manual) Monocytes % (Manual) Eosinophils % (Manual) Nucleated RBC % Seg Neutrophils # Seg Neutrophils # Man Lymphocytes # (Manual) Monocytes # (Manual) Eosinophils # (Manual) PT INR APTT POC ABG pH 7.295 L ABG pH POC ABG pCO2 56.5 H POC ABG pO2 63 L ABG pO2 ABG HCO3 ABG O2 Saturation ABG Base Excess ABG Hemoglobin Oxyhemoglobin Sodium 136 L Potassium Chloride 96.8 L Carbon Dioxide BUN 83 H Creatinine 5.9 H Glucose POC Glucose Uric Acid Calcium 7.6 L Phosphorus Magnesium AST ALT Total Creatine Kinase CK-MB (CK-2) Troponin T NT-Pro-B Natriuret Pep Total Protein Albumin Triglycerides HDL Cholesterol Urine WBC (Auto) Urine Creatinine Urine Total Protein Vancomycin Trough 05/26/19 05/27/19 05/28/19 05:00 04:48 04:47 WBC RBC Hgb Hct MCV MCH MCHC RDW Lymph % (Auto) [place] % (Auto) Eos % (Auto) Lymph # [place] # Eos # Seg Neutrophils % Seg Neuts % (Manual) Lymphocytes % (Manual) Monocytes % (Manual) Eosinophils % (Manual) Nucleated RBC % Seg Neutrophils # Seg Neutrophils # Man Lymphocytes # (Manual) Monocytes # (Manual) Eosinophils # (Manual) PT INR APTT POC ABG pH 7.323 L ABG pH 7.284 L POC ABG pCO2 56.2 H POC ABG pO2 ABG pO2 71.6 L ABG HCO3 ABG O2 Saturation 92.0 L ABG Base Excess ABG Hemoglobin 7.7 L Oxyhemoglobin 89.9 L Sodium 136 L Potassium Chloride 95.3 L Carbon Dioxide BUN 96 H Creatinine 6.5 H Glucose 108 H POC Glucose Uric Acid Calcium 7.6 L Phosphorus Magnesium AST ALT Total Creatine Kinase CK-MB (CK-2) Troponin T NT-Pro-B Natriuret Pep Total Protein Albumin Triglycerides HDL Cholesterol Urine WBC (Auto) Urine Creatinine Urine Total Protein Vancomycin Trough 05/28/19 05/29/19 05/29/19 12:30 12:47 23:44 WBC RBC Hgb Hct MCV MCH MCHC RDW Lymph % (Auto) [place] % (Auto) Eos % (Auto) Lymph # [place] # Eos # Seg Neutrophils % Seg Neuts % (Manual) Lymphocytes % (Manual) Monocytes % (Manual) Eosinophils % (Manual) Nucleated RBC % Seg Neutrophils # Seg Neutrophils # Man Lymphocytes # (Manual) Monocytes # (Manual) Eosinophils # (Manual) PT INR APTT POC ABG pH ABG pH POC ABG pCO2 POC ABG pO2 ABG pO2 ABG HCO3 ABG O2 Saturation ABG Base Excess ABG Hemoglobin Oxyhemoglobin Sodium 135 L Potassium Chloride 95.3 L Carbon Dioxide BUN 82 H Creatinine 6.0 H Glucose POC Glucose 136 H 159 H Uric Acid Calcium 7.5 L Phosphorus Magnesium AST ALT Total Creatine Kinase CK-MB (CK-2) Troponin T NT-Pro-B Natriuret Pep Total Protein Albumin Triglycerides HDL Cholesterol Urine WBC (Auto) Urine Creatinine Urine Total Protein Vancomycin Trough 05/30/19 05/30/19 05/30/19 04:30 05:38 12:00 WBC RBC 3.01 L Hgb 8.2 L Hct 25.3 L MCV MCH 27 L MCHC RDW 17.5 H Lymph % (Auto) [place] % (Auto) Eos % (Auto) Lymph # [place] # Eos # Seg Neutrophils % Seg Neuts % (Manual) 80.0 H Lymphocytes % (Manual) 10.0 L Monocytes % (Manual) Eosinophils % (Manual) Nucleated RBC % Seg Neutrophils # Seg Neutrophils # Man 8.0 H Lymphocytes # (Manual) 1.0 L Monocytes # (Manual) Eosinophils # (Manual) PT INR APTT POC ABG pH ABG pH POC ABG pCO2 POC ABG pO2 73 L ABG pO2 ABG HCO3 ABG O2 Saturation ABG Base Excess ABG Hemoglobin Oxyhemoglobin Sodium Potassium Chloride Carbon Dioxide BUN Creatinine Glucose POC Glucose 166 H Uric Acid Calcium Phosphorus Magnesium AST ALT Total Creatine Kinase CK-MB (CK-2) Troponin T NT-Pro-B Natriuret Pep Total Protein Albumin Triglycerides HDL Cholesterol Urine WBC (Auto) Urine Creatinine Urine Total Protein Vancomycin Trough 05/30/19 05/31/19 05/31/19 23:45 04:07 13:04 WBC 14.3 H RBC 2.88 L Hgb 7.7 L Hct 23.9 L MCV 83 L MCH 27 L MCHC RDW 17.8 H Lymph % (Auto) [place] % (Auto) Eos % (Auto) Lymph # [place] # Eos # Seg Neutrophils % Seg Neuts % (Manual) 83.0 H Lymphocytes % (Manual) 11.0 L Monocytes % (Manual) Eosinophils % (Manual) Nucleated RBC % Seg Neutrophils # Seg Neutrophils # Man 11.9 H Lymphocytes # (Manual) Monocytes # (Manual) 0.9 H Eosinophils # (Manual) PT INR APTT POC ABG pH ABG pH POC ABG pCO2 47.4 H POC ABG pO2 ABG pO2 ABG HCO3 ABG O2 Saturation ABG Base Excess ABG Hemoglobin Oxyhemoglobin Sodium Potassium Chloride Carbon Dioxide BUN Creatinine Glucose POC Glucose 209 H Uric Acid Calcium Phosphorus Magnesium AST ALT Total Creatine Kinase CK-MB (CK-2) Troponin T NT-Pro-B Natriuret Pep Total Protein Albumin Triglycerides HDL Cholesterol Urine WBC (Auto) Urine Creatinine Urine Total Protein Vancomycin Trough 05/31/19 05/31/19 06/01/19 13:04 16:42 00:15 WBC RBC Hgb Hct MCV MCH MCHC RDW Lymph % (Auto) [place] % (Auto) Eos % (Auto) Lymph # [place] # Eos # Seg Neutrophils % Seg Neuts % (Manual) Lymphocytes % (Manual) Monocytes % (Manual) Eosinophils % (Manual) Nucleated RBC % Seg Neutrophils # Seg Neutrophils # Man Lymphocytes # (Manual) Monocytes # (Manual) Eosinophils # (Manual) PT INR APTT POC ABG pH ABG pH POC ABG pCO2 POC ABG pO2 ABG pO2 ABG HCO3 ABG O2 Saturation ABG Base Excess ABG Hemoglobin Oxyhemoglobin Sodium 129 L Potassium Chloride 88.6 L Carbon Dioxide 19 L BUN 117 H Creatinine 6.7 H Glucose 205 H POC Glucose 228 H 223 H Uric Acid Calcium 7.4 L Phosphorus 7.40 H Magnesium AST 58 H ALT 149 H Total Creatine Kinase CK-MB (CK-2) Troponin T NT-Pro-B Natriuret Pep Total Protein 6.0 L Albumin 2.5 L Triglycerides HDL Cholesterol Urine WBC (Auto) Urine Creatinine Urine Total Protein Vancomycin Trough 06/01/19 06/01/19 06/01/19 04:33 05:27 12:31 WBC RBC Hgb Hct MCV MCH MCHC RDW Lymph % (Auto) [place] % (Auto) Eos % (Auto) Lymph # [place] # Eos # Seg Neutrophils % Seg Neuts % (Manual) Lymphocytes % (Manual) Monocytes % (Manual) Eosinophils % (Manual) Nucleated RBC % Seg Neutrophils # Seg Neutrophils # Man Lymphocytes # (Manual) Monocytes # (Manual) Eosinophils # (Manual) PT INR APTT POC ABG pH ABG pH POC ABG pCO2 POC ABG pO2 ABG pO2 56.9 L ABG HCO3 ABG O2 Saturation 85.9 L ABG Base Excess ABG Hemoglobin 8.1 L Oxyhemoglobin 83.6 L Sodium Potassium Chloride Carbon Dioxide BUN Creatinine Glucose POC Glucose 183 H 217 H Uric Acid Calcium Phosphorus Magnesium AST ALT Total Creatine Kinase CK-MB (CK-2) Troponin T NT-Pro-B Natriuret Pep Total Protein Albumin Triglycerides HDL Cholesterol Urine WBC (Auto) Urine Creatinine Urine Total Protein Vancomycin Trough 06/01/19 06/02/19 06/02/19 18:20 00:00 05:33 WBC RBC Hgb Hct MCV MCH MCHC RDW Lymph % (Auto) [place] % (Auto) Eos % (Auto) Lymph # [place] # Eos # Seg Neutrophils % Seg Neuts % (Manual) Lymphocytes % (Manual) Monocytes % (Manual) Eosinophils % (Manual) Nucleated RBC % Seg Neutrophils # Seg Neutrophils # Man Lymphocytes # (Manual) Monocytes # (Manual) Eosinophils # (Manual) PT INR APTT POC ABG pH ABG pH POC ABG pCO2 POC ABG pO2 ABG pO2 ABG HCO3 ABG O2 Saturation ABG Base Excess ABG Hemoglobin Oxyhemoglobin Sodium Potassium Chloride Carbon Dioxide BUN Creatinine Glucose POC Glucose 265 H 279 H 259 H Uric Acid Calcium Phosphorus Magnesium AST ALT Total Creatine Kinase CK-MB (CK-2) Troponin T NT-Pro-B Natriuret Pep Total Protein Albumin Triglycerides HDL Cholesterol Urine WBC (Auto) Urine Creatinine Urine Total Protein Vancomycin Trough 06/02/19 06/02/19 11:06 11:06 WBC 13.1 H RBC 2.92 L Hgb 7.9 L Hct 24.4 L MCV MCH 27 L MCHC RDW 17.4 H Lymph % (Auto) [place] % (Auto) Eos % (Auto) Lymph # [place] # Eos # Seg Neutrophils % Seg Neuts % (Manual) 78.0 H Lymphocytes % (Manual) 12.0 L Monocytes % (Manual) 10.0 H Eosinophils % (Manual) Nucleated RBC % Seg Neutrophils # Seg Neutrophils # Man 10.2 H Lymphocytes # (Manual) Monocytes # (Manual) 1.3 H Eosinophils # (Manual) PT INR APTT POC ABG pH ABG pH POC ABG pCO2 POC ABG pO2 ABG pO2 ABG HCO3 ABG O2 Saturation ABG Base Excess ABG Hemoglobin Oxyhemoglobin Sodium 135 L Potassium Chloride 94.7 L Carbon Dioxide 21 L BUN 107 H Creatinine 4.5 H Glucose 286 H POC Glucose Uric Acid Calcium 7.9 L Phosphorus 6.30 H Magnesium AST ALT 104 H Total Creatine Kinase CK-MB (CK-2) Troponin T NT-Pro-B Natriuret Pep Total Protein 6.0 L Albumin 2.7 L Triglycerides HDL Cholesterol Urine WBC (Auto) Urine Creatinine Urine Total Protein Vancomycin Trough
--- NOTE | 2019-06-02 17:08 | Progress Note ---
Assessment and Plan - Patient Problems (1) Acute on chronic respiratory failure Current Visit: Yes Status: Acute Qualifiers: Respiratory failure complication: hypoxia Qualified Code(s): J96.21 - Acute and chronic respiratory failure with hypoxia Plan to address problem: Pulmonary team consulted, wean vent as tolerated, daily spontaneous breathing trial, sedation holiday, ABG in a.m., The high probability of a clinically significant, sudden or life threatening deterioration of the [pulmonary, renal, neuro, endocrine] system(s) required my full and direct attention, intervention and personal management. The aggregate critical care time was [65] minutes. This time is in addition to time spent performing reported procedures but includes the following: [x] Data Review and interpretation [x] Patient assessment and monitoring of vital signs [x] Documentation [x] Medication orders and management (2) Obesity hypoventilation syndrome Current Visit: Yes Status: Acute Plan to address problem: Supplemental oxygen, nebulizer therapy, pulse oximetry, wean vent as tolerated. (3) Morbid obesity Current Visit: Yes Status: Chronic Plan to address problem: Supportive care, poor prognosis. Outpatient bariatric surgery follow-up at discharge. (4) Cardiac arrest Current Visit: Yes Status: Acute Plan to address problem: Supportive care. Cardiology consulted, continue supportive care. (5) Anoxic brain injury Current Visit: Yes Status: Acute Plan to address problem: Neuro check, supportive care. Neurology consulted. (6) Acute kidney injury Current Visit: Yes Status: Acute Plan to address problem: Nephrology consulted, monitor urine output every shift, daily weight, serial BMP to monitor serum creatinine. Avoid nephrotoxic agents. (7) DVT prophylaxis Current Visit: Yes Status: Acute Plan to address problem: SCD to bilateral lower extremity, prophylactic Lovenox. History Interval history: 34-year-old male with acute hypoxemic and hypercapnic respiratory failure currently on ventilatory support status post cardiac arrest, and anoxic encephalopathy, obesity hypoventilation, acute kidney injury, sepsis. Patient is currently intubated and on ventilatory support and currently undergoing ICU care. Patient lab and imaging studies reviewed. Patient currently unable to be weaned from vent support. Patient has poor prognosis. Hospitalist Physical - Constitutional Vitals: Temp Pulse Resp BP Pulse Ox 99.6 F 73 33 H 161/91 95 06/02/19 16:00 06/02/19 16:37 06/02/19 16:00 06/02/19 16:37 06/02/19 16:34 General appearance: Present: mild distress - EENT Eyes: Present: miosis - Neck Neck: Present: supple - Respiratory Respiratory effort: labored Respiratory: bilateral: diminished - Cardiovascular Rhythm: regular Heart Sounds: Present: S1 & S2 - Extremities Extremity abnormal: edema Peripheral Pulses: within normal limits - Abdominal General gastrointestinal: soft, non-tender, non-distended - Integumentary Integumentary: Present: clear, dry - Psychiatric Psychiatric: no appropriate mood/affect, no intact judgment & insight, no memory intact - Neurologic Neurologic: no gait normal Results - Labs CBC & Chem 7: 06/02/19 11:06 06/02/19 11:06 Labs: Laboratory Last Values WBC 13.1 K/mm3 (4.5-11.0) H 06/02/19 11:06 RBC 2.92 M/mm3 (3.65-5.03) L 06/02/19 11:06 Hgb 7.9 gm/dl (11.8-15.2) L 06/02/19 11:06 Hct 24.4 % (35.5-45.6) L 06/02/19 11:06 MCV 84 fl (84-94) 06/02/19 11:06 MCH 27 pg (28-32) L 06/02/19 11:06 MCHC 33 % (32-34) 06/02/19 11:06 RDW 17.4 % (13.2-15.2) H 06/02/19 11:06 Plt Count 251 K/mm3 (140-440) 06/02/19 11:06 Lymph % (Auto) 7.9 % (13.4-35.0) L 05/18/19 01:50 [place] % (Auto) 16.2 % (0.0-7.3) H 05/22/19 06:25 Eos % (Auto) 10.8 % (0.0-4.3) H 05/22/19 06:25 Baso % (Auto) 0.2 % (0.0-1.8) 05/18/19 01:50 Lymph # 0.7 K/mm3 (1.2-5.4) L 05/18/19 01:50 [place] # 1.3 K/mm3 (0.0-0.8) H 05/22/19 06:25 Eos # 0.9 K/mm3 (0.0-0.4) H 05/22/19 06:25 Baso # 0.0 K/mm3 (0.0-0.1) 05/22/19 06:25 Add Manual Diff Complete 06/02/19 11:06 Total Counted 100 06/02/19 11:06 Seg Neutrophils % 65.5 % (40.0-70.0) 05/22/19 06:25 Seg Neuts % (Manual) 78.0 % (40.0-70.0) H 06/02/19 11:06 Band Neutrophils % 0 % 06/02/19 11:06 Lymphocytes % (Manual) 12.0 % (13.4-35.0) L 06/02/19 11:06 Reactive Lymphs % (Man) 0 % 06/02/19 11:06 Monocytes % (Manual) 10.0 % (0.0-7.3) H 06/02/19 11:06 Eosinophils % (Manual) 0 % (0.0-4.3) 06/02/19 11:06 Basophils % (Manual) 0 % (0.0-1.8) 06/02/19 11:06 Metamyelocytes % 0 % 06/02/19 11:06 Myelocytes % 0 % 06/02/19 11:06 Promyelocytes % 0 % 06/02/19 11:06 Blast Cells % 0 % 06/02/19 11:06 Nucleated RBC % Not Reportable 06/02/19 11:06 Seg Neutrophils # 5.3 K/mm3 (1.8-7.7) 05/22/19 06:25 Seg Neutrophils # Man 10.2 K/mm3 (1.8-7.7) H 06/02/19 11:06 Band Neutrophils # 0.0 K/mm3 06/02/19 11:06 Lymphocytes # (Manual) 1.6 K/mm3 (1.2-5.4) 06/02/19 11:06 Abs React Lymphs (Man) 0.0 K/mm3 06/02/19 11:06 Monocytes # (Manual) 1.3 K/mm3 (0.0-0.8) H 06/02/19 11:06 Eosinophils # (Manual) 0.0 K/mm3 (0.0-0.4) 06/02/19 11:06 Basophils # (Manual) 0.0 K/mm3 (0.0-0.1) 06/02/19 11:06 Metamyelocytes # 0.0 K/mm3 06/02/19 11:06 Myelocytes # 0.0 K/mm3 06/02/19 11:06 Promyelocytes # 0.0 K/mm3 06/02/19 11:06 Blast Cells # 0.0 K/mm3 06/02/19 11:06 WBC Morphology Not Reportable 06/02/19 11:06 Hypersegmented Neuts Not Reportable 06/02/19 11:06 Hyposegmented Neuts Not Reportable 06/02/19 11:06 Hypogranular Neuts Not Reportable 06/02/19 11:06 Smudge Cells Not Reportable 06/02/19 11:06 Toxic Granulation Not Reportable 06/02/19 11:06 Toxic Vacuolation Not Reportable 06/02/19 11:06 Dohle Bodies Not Reportable 06/02/19 11:06 Pelger-Huet Anomaly Not Reportable 06/02/19 11:06 Renea Rods Not Reportable 06/02/19 11:06 Platelet Estimate Consistent w auto 06/02/19 11:06 Clumped Platelets Not Reportable 06/02/19 11:06 Plt Clumps, EDTA Not Reportable 06/02/19 11:06 Large Platelets Not Reportable 06/02/19 11:06 Giant Platelets Not Reportable 06/02/19 11:06 Platelet Satelliting Not Reportable 06/02/19 11:06 Plt Morphology Comment Not Reportable 06/02/19 11:06 RBC Morphology Not Reportable 06/02/19 11:06 Dimorphic RBCs Not Reportable 06/02/19 11:06 Polychromasia Not Reportable 06/02/19 11:06 Hypochromasia Not Reportable 06/02/19 11:06 Poikilocytosis Not Reportable 06/02/19 11:06 Anisocytosis Few 06/02/19 11:06 Microcytosis Not Reportable 06/02/19 11:06 Macrocytosis Not Reportable 06/02/19 11:06 Spherocytes Not Reportable 06/02/19 11:06 Pappenheimer Bodies Not Reportable 06/02/19 11:06 Sickle Cells Not Reportable 06/02/19 11:06 Target Cells Not Reportable 06/02/19 11:06 Tear Drop Cells Not Reportable 06/02/19 11:06 Ovalocytes Not Reportable 06/02/19 11:06 Stomatocytes Few 05/30/19 05:38 Helmet Cells Not Reportable 06/02/19 11:06 [place] Bodies Not Reportable 06/02/19 11:06 [place] Rings Not Reportable 06/02/19 11:06 [place] Cells Not Reportable 06/02/19 11:06 Bite Cells Not Reportable 06/02/19 11:06 Crenated Cell Not Reportable 06/02/19 11:06 Elliptocytes Not Reportable 06/02/19 11:06 Acanthocytes (Spur) Not Reportable 06/02/19 11:06 Rouleaux Not Reportable 06/02/19 11:06 Hemoglobin C Crystals Not Reportable 06/02/19 11:06 Schistocytes Not Reportable 06/02/19 11:06 Malaria parasites Not Reportable 06/02/19 11:06 Syed Bodies Not Reportable 06/02/19 11:06 Hem Pathologist Commnt No 06/02/19 11:06 PT 15.4 Sec. (12.2-14.9) H 05/01/19 Unknown INR 1.23 (0.87-1.13) H 05/01/19 Unknown APTT 22.7 Sec. (24.2-36.6) L 05/01/19 Unknown POC ABG pH 7.449 (7.35-7.45) 06/02/19 05:25 ABG pH 7.375 pH Units (7.350-7.450) 06/01/19 04:33 POC ABG pCO2 38.9 (35-45) 06/02/19 05:25 ABG pCO2 42.7 mm Hg 06/01/19 04:33 POC ABG pO2 82 (80-105) 06/02/19 05:25 ABG pO2 56.9 mm Hg (80.0-90.0) L 06/01/19 04:33 POC ABG HCO3 26.9 (22-26 mml/L) 06/02/19 05:25 ABG HCO3 24.4 mmol/L (20.0-26.0) 06/01/19 04:33 POC ABG Total CO2 28 (23-27mmol/L) 06/02/19 05:25 POC ABG O2 Sat 96 06/02/19 05:25 ABG O2 Saturation 85.9 % (95.0-99.0) L 06/01/19 04:33 ABG O2 Content 9.6 (0.0-44) 06/01/19 04:33 POC ABG Base Excess 3 ((-2) - (+3)mmol/L) 06/02/19 05:25 ABG Base Excess -0.7 mmol/L (-2.0-3.0) 06/01/19 04:33 ABG Hemoglobin 8.1 gm/dl (14.0-18.0) L 06/01/19 04:33 ABG Carboxyhemoglobin 2.1 % (0.0-5.0) 06/01/19 04:33 ABG Methemoglobin 0.5 % (0.0-1.5) 06/01/19 04:33 Oxyhemoglobin 83.6 % (95.0-99.0) L 06/01/19 04:33 FiO2 30 % 06/02/19 05:25 Sodium 135 mmol/L (137-145) L 06/02/19 11:06 Potassium 4.7 mmol/L (3.6-5.0) 06/02/19 11:06 Chloride 94.7 mmol/L (98-107) L 06/02/19 11:06 Carbon Dioxide 21 mmol/L (22-30) L 06/02/19 11:06 Anion Gap 24 mmol/L 06/02/19 11:06 BUN 107 mg/dL (9-20) H 06/02/19 11:06 Creatinine 4.5 mg/dL (0.8-1.5) H 06/02/19 11:06 Estimated GFR 18 ml/min 06/02/19 11:06 BUN/Creatinine Ratio 24 % 06/02/19 11:06 Glucose 286 mg/dL (75-100) H 06/02/19 11:06 POC Glucose 259 (70-105) H 06/02/19 05:33 Osmolality 327 Mosm/kg 05/07/19 13:45 Uric Acid 18.0 mg/dL (3.5-7.6) H 05/07/19 13:45 Calcium 7.9 mg/dL (8.4-10.2) L 06/02/19 11:06 Phosphorus 6.30 mg/dL (2.5-4.5) H 06/02/19 11:06 Magnesium 1.90 mg/dL (1.7-2.3) 05/31/19 13:04 Total Bilirubin 0.30 mg/dL (0.1-1.2) 06/02/19 11:06 AST 35 units/L (5-40) 06/02/19 11:06 ALT 104 units/L (7-56) H 06/02/19 11:06 Alkaline Phosphatase 88 units/L (35-129) 06/02/19 11:06 Total Creatine Kinase 131 units/L (55-170) 05/02/19 04:41 CK-MB (CK-2) 5.2 ng/mL (0.0-4.0) H 05/02/19 04:41 CK-MB (CK-2) Rel Index 3.9 (0-4) 05/02/19 04:41 Troponin T 0.067 ng/mL (0.00-0.029) H D 05/02/19 04:41 NT-Pro-B Natriuret Pep 6831 pg/mL (0-450) H 05/01/19 Unknown Total Protein 6.0 g/dL (6.3-8.2) L 06/02/19 11:06 Albumin 2.7 g/dL (3.9-5) L 06/02/19 11:06 Albumin/Globulin Ratio 0.8 % 06/02/19 11:06 Triglycerides 173 mg/dL (2-149) H 05/17/19 Unknown Cholesterol 173 mg/dL (50-199) 05/02/19 00:06 LDL Cholesterol Direct 126 mg/dL (50-130) 05/02/19 00:06 HDL Cholesterol 18 mg/dL (40-59) L 05/02/19 00:06 Cholesterol/HDL Ratio 9.61 % 05/02/19 00:06 Procalcitonin 0.54 ng/mL (<0.15) 05/03/19 11:52 Urine Color Yellow (Yellow) 05/20/19 12:00 Urine Turbidity Cloudy (Clear) 05/20/19 12:00 Urine pH 5.0 (5.0-7.0) 05/20/19 12:00 Ur Specific [place] 1.015 (1.003-1.030) 05/20/19 12:00 Urine Protein 30 mg/dl mg/dL (Negative) 05/20/19 12:00 Urine Glucose (UA) Neg mg/dL (Negative) 05/20/19 12:00 Urine Ketones Neg mg/dL (Negative) 05/20/19 12:00 Urine Blood Lg (Negative) 05/20/19 12:00 Urine Nitrite Neg (Negative) 05/20/19 12:00 Urine Bilirubin Neg (Negative) 05/20/19 12:00 Urine Urobilinogen < 2.0 mg/dL (<2.0) 05/20/19 12:00 Ur Leukocyte Esterase Mod (Negative) 05/20/19 12:00 Urine WBC (Auto) 26.0 /HPF (0.0-6.0) H 05/20/19 12:00 Urine RBC (Auto) 83.0 /HPF (0.0-6.0) 05/20/19 12:00 Urine Bacteria (Auto) 1+ /HPF (Negative) 05/20/19 12:00 Uric Acid Crystals 3+ 05/03/19 10:55 Urine Mucus Few /HPF 05/20/19 12:00 Urine Yeast (Budding) 3+ /HPF 05/20/19 12:00 Urine Creatinine 292.8 mg/dL (0.1-20.0) H 05/07/19 22:40 Urine Sodium 11 mmol/L 05/07/19 22:40 Urine Total Protein 269 mg/dL (5-11.8) H 05/07/19 22:40 Vancomycin Trough 20.5 ug/mL (5.0-20.0) H 05/15/19 09:00 Random Vancomycin 11.5 ug/mL (0-40.0) 05/27/19 06:00 AMNA Screen Negative (Negative) 05/07/19 13:45 Hepatitis A IgM Ab Non-reactive (NonReactive) 05/07/19 13:45 Hep Bs Antigen Non-reactive (Negative) 05/07/19 13:45 Hep B Core IgM Ab Non-reactive (NonReactive) 05/07/19 13:45 Hepatitis C Antibody Non-reactive (NonReactive) 05/07/19 13:45 Active Medications - Current Medications Current Medications: Generic Name Dose Route Start Last Admin Trade Name Freq PRN Reason Stop Dose Admin Albumin Human 25 gm 05/19/19 10:47 Alburx 25% (Albumin) IV ARIANE PRN Hypotension Alteplase, Recombinant 2 mg 05/25/19 09:30 05/28/19 21:15 Cathflo IV 2 mg ARIANE PRN Administration LINE FLUSH Lipase/Protease/Amylase 1 each 05/14/19 15:[address] 10,500 Unit FEEDTUBE PRN PRN For Clogged Feeding Tube Dextrose 50 gm 05/01/19 20:24 D50w (25gm) Vial IV Q30MIN PRN Hypoglycemia Protocol Enoxaparin Sodium 30 mg 05/16/19 10:00 06/02/19 09:45 Enoxaparin SUB-Q 30 mg QDAY VICKEY Administration Epoetin Hugo 10,000 unit 05/19/19 10:47 05/29/19 12:53 Procrit IV 10,000 unit ARIANE PRN Administration hemodialysis Famotidine 20 mg 05/16/19 10:00 06/02/19 09:45 Pepcid PO 20 mg DAILY VICKEY Administration Hydralazine HCl 20 mg 05/13/19 08:09 06/02/19 16:37 Apresoline IV 20 mg Q4HR PRN Administration SBP >/=160 Fentanyl Citrate 2,000 mcg in 100 mls @ 10.195 mls/hr 05/01/19 22:00 06/02/19 13:39 Fentanyl Drip Premix IV 1 mcg/kg/hr TITR VICKEY 10.195 mls/hr Administration Protocol 1 MCG/KG/HR Propofol 1,000 mg in 100 mls @ 7.011 mls/hr 05/03/19 04:00 06/02/19 05:41 Diprivan 10 Mg/Ml IV 5 mcg/kg/min TITR VICKEY 7.011 mls/hr Administration Protocol 5 MCG/KG/MIN Sodium Chloride 500 mls @ 10 mls/hr 05/06/19 15:00 Nacl 0.9% 500 Ml IV DIRECT VICKEY Sodium Chloride 100 mls @ 999 mls/hr 05/19/19 10:47 05/20/19 08:14 Nacl 0.9% IV 999 mls/hr ARIANE PRN Administration Hypotension Insulin Human Lispro 0 unit 06/01/19 14:00 06/02/19 11:54 Humalog SUB-Q 6 unit Q6HR VICKEY Administration Protocol Labetalol HCl 100 mg 05/14/19 14:00 06/02/19 13:40 Labetalol PO 100 mg Q8HR VICKEY Administration Levetiracetam 750 mg 05/13/19 10:00 06/02/19 09:45 Keppra PO 750 mg BID VICKEY Administration Lorazepam 2 mg 05/06/19 06:22 05/10/19 16:17 Ativan IV 2 mg Q4H PRN Administration Seizures/AGITATION Methylprednisolone Sodium Succinate 125 mg 05/29/19 14:00 06/02/19 13:40 Solu-Medrol IV 125 mg Q8HR VICKEY Administration Scopolamine 1 each 05/20/19 12:00 05/20/19 12:52 Transderm-Scop TD 1 each Q72HR VICKEY Administration Simple Syrup 15 ml 05/14/19 15:01 Simple Syrup FEEDTUBE PRN PRN Hypoglycemia Simple Syrup 30 ml 05/14/19 15:01 Simple Syrup FEEDTUBE PRN PRN Hypoglycemia Sodium Bicarbonate 325 mg 05/14/19 15:01 Sodium Bicarbonate FEEDTUBE PRN PRN For Clogged Feeding Tube Nutrition/Malnutrition Assess - Dietary Evaluation Nutrition/Malnutrition Findings: Nutrition Notes Start: 05/04/19 12:54 Freq: Status: Active Protocol: Document 05/28/19 11:56 LP (Rec: 05/28/19 12:04 LP [email or web address]) Nutrition Notes Initial or Follow up Reassessment Current Diagnosis Acute Kidney Injury,Sepsis, Respiratory Failure Other Pertinent Diagnosis on HD Current Diet Nepro 1.8 at 50 ml/hr Labs/Tests Reviewed Pertinent Medications Reviewed Height 6 ft 4 in Weight 261.4 kg [place] Body Weight (kg) 91.81 BMI 70.1 Weight Status Morbidly Obese Subjective/Other Information Pt tolerating Nepro at 50ml/hr . Pt on HD. Percent of energy/protein needs met: 100%/53% Burn Absent Trauma Absent Current % PO Negligible Minimum of two criteria No physical signs of malnutrition #1 Nutrition Diagnosis Inadequate oral intake Diagnosis Progress(for reassessment Continues documentation) Is patient on ventilator? Yes Is Patient Ambulatory and/or Out of Bed No [facility] 4392.636 Kcal/Kg value to use for calculation 8 Approximate Energy Requirements Using 2091 kcal/Kg Calculation Used for Recommendations Kcal/kg Additional Notes PRO needs: 225 g (up to 2.5 g/ kg IBW) Fluid needs: 1 ml/kcal Nutrition Intervention Change Diet Order: Continue TF Nutrition Support: Nepro 1.8 at 50 ml/hr Flush with 150ml q4h Kcal 2,160 Protein (gm) 97 Fluid (mL) 872 Goal #1 TF tolerance Goal #2 Meet at least 75% kcal/PRO needs via TF Anticipated Discharge Needs: Unable to determine at this time Follow-Up By: 06/03/19 Additional Comments Follow fot stable intakes
[2019-06-03] MEDS: fentaNYL DRIP Premix 2,000 MCG/100 ML BAG IV SCH (04:51)
[2019-06-03] MEDS: methylPREDNISolone Sod Succinate 125 MG/2 ML INJ IV SCH ×3 (05:35→21:27)
[2019-06-03 05:53] LABS: Hematocrit 25.4 % (35.5-45.6); Hemoglobin 8.2 gm/dl (11.8-15.2); Mean Corpuscular HGB Conc 32 % (32-34); Mean Corpuscular Volume 85 fl (84-94); Platelet Count 342 K/mm3 (140-440); Red Blood Count 3.01 M/mm3 (3.65-5.03); Red Cell Distribution Width 17.5 % (13.2-15.2)
[2019-06-03 06:15] LABS: Albumin 2.8 g/dL (3.9-5); Calcium 8.1 mg/dL (8.4-10.2)
[2019-06-03] MEDS: INSULIN LISPRO 100 UNIT/ML SUB-Q SCH ×4 (06:41→23:44)
[2019-06-03 06:43] LABS: Basophils % (Manual) 0 % (0.0-1.8); Eosinophils % (Manual) 0 % (0.0-4.3); Total Cells Counted 100
[2019-06-03 06:44] LABS: Schistocytes Few; Spherocytes Few; Stomatocytes Few
[2019-06-03 06:46] LABS: Platelet Estimate Consistent w Auto
--- NOTE | 2019-06-03 08:37 | Progress Note ---
Subjective Principal diagnosis: HF; acute hypoxemic resp failure, SIRS, CARLA Interval history: Patient was seen today for follow-up on multiple renal related issues, patient is critically ill in the ICU intubated has been currently dialysis dependent, Vitals intake output medications were reviewed Past medical history: Reviewed Family, social history: Reviewed Allergies: Reviewed Physical examination General: No acute distress Vitals: Reviewed HEENT: Oral mucosa moist no icterus Neck: Supple no thyromegaly nodular mass or JVD Chest: Clear to auscultation anteriorly Heart: Regular rate and rhythm S1-S2 heard no S3-S4 Abdomen: Soft nontender no suprapubic masses no organomegaly Extremity: Dry skin less than 1+ edema Psych: No evidence of any agitation and aggression noted Derm: No petechial rash Assessment and plan: Acute kidney injury: Multifactorial in etiology most likely due to vancomycin toxicity currently dialysis dependent, possibility of acute tubular necrosis cannot be ruled out, he is currently on Friday and Friday schedule, As far as labs are concerned his hemoglobin is slightly better at 8.2 BUN creatinine is 119 and 4.1 will like to do a post dialysis BUN to assess the adequacy of dialysis as well as catheter Patient remains anuric at this time, and will need to continue with renal replacement therapy for now patient will require bladder scan periodically Patient dialysis access is currently a permacath which was placed by vascular surgery this week, Blood pressure: Appears to be elevated 169/91 since this morning will follow Multi-organ failure: Mortality risk is very high Hyperphosphatemia: We will follow-up Overall prognosis remains guarded to poor due to multiple comorbidities including the SIRS, shock, respiratory failure acute renal failure encephalopathy seizure activity, cardiac arrest, obesity, congestive heart failure, malignant hypertension Encephalopathy: Multifactorial, also does have seizure disorder respiratory failure and fever Renal prognosis remains very guarded at this time total critical care time spent at bedside 33 minutes We'll continue to follow and make recommendation from renal standpoint Objective - Vital Signs Vital signs: Vital Signs - 12hr 06/02/19 06/02/19 06/02/19 21:00 21:13 21:27 Temperature Pulse Rate 89 80 85 Pulse Rate [ From Monitor] Respiratory 30 H 28 H Rate Blood Pressure 132/74 132/74 132/74 O2 Sat by Pulse 94 97 Oximetry 06/02/19 06/02/19 06/03/19 22:00 23:00 00:00 Temperature 99.3 F Pulse Rate 68 67 77 Pulse Rate [ 80 From Monitor] Respiratory 19 19 16 Rate Blood Pressure 133/70 141/73 151/86 O2 Sat by Pulse 94 94 94 Oximetry 06/03/19 06/03/19 06/03/19 00:05 01:00 02:00 Temperature Pulse Rate 66 66 73 Pulse Rate [ From Monitor] Respiratory 16 13 Rate Blood Pressure 151/86 146/76 157/86 O2 Sat by Pulse 97 95 92 Oximetry 06/03/19 06/03/19 06/03/19 03:00 04:00 04:38 Temperature 99.0 F Pulse Rate 66 74 65 Pulse Rate [ 65 From Monitor] Respiratory 12 14 Rate Blood Pressure 147/78 151/79 151/79 O2 Sat by Pulse 95 93 97 Oximetry 06/03/19 06/03/19 06/03/19 05:00 05:35 06:00 Temperature Pulse Rate 72 73 71 Pulse Rate [ From Monitor] Respiratory 27 H 21 Rate Blood Pressure 158/86 158/86 162/86 O2 Sat by Pulse 94 93 Oximetry 06/03/19 06/03/19 06/03/19 07:00 07:33 08:00 Temperature 98.5 F Pulse Rate 63 63 69 Pulse Rate [ 69 From Monitor] Respiratory 25 H 21 Rate Blood Pressure 166/89 166/89 169/91 O2 Sat by Pulse 92 95 91 Oximetry - Lab 06/03/19 05:30 06/03/19 05:30 Most recent lab results ABG pH 7.375 pH Units (7.350-7.450) 06/01/19 04:33 ABG pCO2 42.7 mm Hg 06/01/19 04:33 ABG pO2 56.9 mm Hg (80.0-90.0) L 06/01/19 04:33 ABG HCO3 24.4 mmol/L (20.0-26.0) 06/01/19 04:33 ABG O2 Saturation 85.9 % (95.0-99.0) L 06/01/19 04:33 Calcium 8.1 mg/dL (8.4-10.2) L 06/03/19 05:30 Phosphorus 6.30 mg/dL (2.5-4.5) H 06/02/19 11:06 Magnesium 1.90 mg/dL (1.7-2.3) 05/31/19 13:04 Urine Creatinine 292.8 mg/dL (0.1-20.0) H 05/07/19 22:40 Urine Sodium 11 mmol/L 05/07/19 22:40 Urine Total Protein 269 mg/dL (5-11.8) H 05/07/19 22:40 Medications & Allergies - Medications Allergies/Adverse Reactions: Allergies No Known Allergies Allergy (Verified 05/01/19 20:27) Home Medications: Home Medications Medication Instructions Recorded Confirmed Last Taken Type No Known Home Medications [No 05/03/19 05/03/19 Unknown History Reported Home Medications] Active Medications: Generic Name Dose Route Start Last Admin Trade Name Freq PRN Reason Stop Dose Admin Albumin Human 25 gm 05/19/19 10:47 Alburx 25% (Albumin) IV ARIANE PRN Hypotension Alteplase, Recombinant 2 mg 05/25/19 09:30 05/28/19 21:15 Cathflo IV 2 mg ARIANE PRN Administration LINE FLUSH Lipase/Protease/Amylase 1 each 05/14/19 15:[address] 10,500 Unit FEEDTUBE PRN PRN For Clogged Feeding Tube Dextrose 50 gm 05/01/19 20:24 D50w (25gm) Vial IV Q30MIN PRN Hypoglycemia Protocol Enoxaparin Sodium 30 mg 05/16/19 10:00 06/02/19 09:45 Enoxaparin SUB-Q 30 mg QDAY VICKEY Administration Epoetin Hugo 10,000 unit 05/19/19 10:47 05/29/19 12:53 Procrit IV 10,000 unit ARIANE PRN Administration hemodialysis Famotidine 20 mg 05/16/19 10:00 06/02/19 09:45 Pepcid PO 20 mg DAILY VICKEY Administration Hydralazine HCl 20 mg 05/13/19 08:09 06/02/19 16:37 Apresoline IV 20 mg Q4HR PRN Administration SBP >/=160 Fentanyl Citrate 2,000 mcg in 100 mls @ 10.195 mls/hr 05/01/19 22:00 06/03/19 04:51 Fentanyl Drip Premix IV 1 mcg/kg/hr TITR VICKEY 10.195 mls/hr Administration Protocol 1 MCG/KG/HR Propofol 1,000 mg in 100 mls @ 7.011 mls/hr 05/03/19 04:00 06/03/19 05:34 Diprivan 10 Mg/Ml IV 10 mcg/kg/min TITR VICKEY 14.022 mls/hr Administration Protocol 5 MCG/KG/MIN Sodium Chloride 500 mls @ 10 mls/hr 05/06/19 15:00 Nacl 0.9% 500 Ml IV DIRECT VICKEY Sodium Chloride 100 mls @ 999 mls/hr 05/19/19 10:47 05/20/19 08:14 Nacl 0.9% IV 999 mls/hr ARIANE PRN Administration Hypotension Insulin Human Lispro 0 unit 06/01/19 14:00 06/03/19 06:41 Humalog SUB-Q 6 unit Q6HR VICKEY Administration Protocol Labetalol HCl 100 mg 05/14/19 14:00 06/03/19 05:35 Labetalol PO 100 mg Q8HR VICKEY Administration Levetiracetam 750 mg 05/13/19 10:00 06/02/19 21:12 Keppra PO 750 mg BID VICKEY Administration Lorazepam 2 mg 05/06/19 06:22 05/10/19 16:17 Ativan IV 2 mg Q4H PRN Administration Seizures/AGITATION Methylprednisolone Sodium Succinate 125 mg 05/29/19 14:00 06/03/19 05:35 Solu-Medrol IV 125 mg Q8HR VICKEY Administration Scopolamine 1 each 05/20/19 12:00 05/20/19 12:52 Transderm-Scop TD 1 each Q72HR VICKEY Administration Simple Syrup 15 ml 05/14/19 15:01 Simple Syrup FEEDTUBE PRN PRN Hypoglycemia Simple Syrup 30 ml 05/14/19 15:01 Simple Syrup FEEDTUBE PRN PRN Hypoglycemia Sodium Bicarbonate 325 mg 05/14/19 15:01 Sodium Bicarbonate FEEDTUBE PRN PRN For Clogged Feeding Tube
[2019-06-03] MEDS: levETIRAcetam 500 MG/5 ML ORAL LIQD PO SCH ×2 (09:15→21:27)
[2019-06-03] MEDS: ENOXAPARIN 30 MG/0.3 ML INJ SUB-Q SCH (09:16)
[2019-06-03] MEDS: hydrALAZINE 20 MG/1 ML INJ IV PRN ×4 (09:16→23:45)
[2019-06-03] MEDS: FAMOTIDINE 20 MG TAB PO SCH (09:16)
--- NOTE | 2019-06-03 09:39 | Progress Note ---
Assessment and Plan 34 y/o male with acute hypoxic, hypercapnic respiratory failure currently ventilated and sedated, now with persistent fevers and seizure and on HD 06/03/2019: PEEP down to 8 today. Sats are stable. Fever has resolved. Will continue steroids today, consider weaning post extubation. Today is day 33 of intubation. Hopeful trial of extubation, maybe even tomorrow. Will try to get PEEP down to 6 towards the end of this shift. IF ABG in the AM is good, will place on PSV and discontinue sedation. Will stop Fent Drip and place on PRN pushes of Fent. Will need leak test prior to extubation duration of tube in airway. 1. ID: Patient unable to fit in scanner so CT of head sinus, chest will not happen. ID has placed back on renally adjusted Vanc. he has grown out jarad from urine and a tracheal aspirate 2. Pulm: FIO2 now @ 40%. ABG was good. Will wean after HD today. Can start to come down on PEEP. Will drop to 12 3. Renal: HD per renal, will need permacath per vascular notes if patient can be afebrile. 4. Day number of 33 of intubation. 5. Trying to avoid trach as much as possible. He is on his fourth week of intubation. However still requiring high levels of PEEP. At this point, once weaned to normal PEEP levels, hoping that we can extubate. CCT 31 minutes. Subjective Date of service: 06/03/19 Principal diagnosis: HF; acute hypoxemic resp failure, SIRS, CARLA Interval history: Per nursing, patient was "wild and all over the place" on Diprovan 5 so increased to 10 and Fentanyl placed back on. Getting HD now. ABG on 10 of PEEP was good. Dropped to 8 this am. No family present. Objective Vital Signs - 12hr 06/02/19 06/02/19 06/03/19 22:00 23:00 00:00 Temperature 99.3 F Pulse Rate 68 67 77 Pulse Rate [ 80 From Monitor] Respiratory 19 19 16 Rate Blood Pressure 133/70 141/73 151/86 O2 Sat by Pulse 94 94 94 Oximetry 06/03/19 06/03/19 06/03/19 00:05 01:00 02:00 Temperature Pulse Rate 66 66 73 Pulse Rate [ From Monitor] Respiratory 16 13 Rate Blood Pressure 151/86 146/76 157/86 O2 Sat by Pulse 97 95 92 Oximetry 06/03/19 06/03/19 06/03/19 03:00 04:00 04:38 Temperature 99.0 F Pulse Rate 66 74 65 Pulse Rate [ 65 From Monitor] Respiratory 12 14 Rate Blood Pressure 147/78 151/79 151/79 O2 Sat by Pulse 95 93 97 Oximetry 06/03/19 06/03/19 06/03/19 05:00 05:35 06:00 Temperature Pulse Rate 72 73 71 Pulse Rate [ From Monitor] Respiratory 27 H 21 Rate Blood Pressure 158/86 158/86 162/86 O2 Sat by Pulse 94 93 Oximetry 06/03/19 06/03/19 06/03/19 07:00 07:33 08:00 Temperature 98.5 F Pulse Rate 63 63 69 Pulse Rate [ 69 From Monitor] Respiratory 25 H 21 Rate Blood Pressure 166/89 166/89 169/91 O2 Sat by Pulse 92 95 91 Oximetry 06/03/19 09:16 Temperature Pulse Rate 68 Pulse Rate [ From Monitor] Respiratory Rate Blood Pressure 165/96 O2 Sat by Pulse Oximetry Constitutional: other (morbidly obese male, sedated on vent, orally intubated) Eyes: non-icteric ENT: oropharynx moist Neck: other (extremely large in circumference) Effort: normal Ascultation: Bilateral: diminished breath sounds (secondary to body habitus) Cardiovascular: regular rate and rhythm (no mrg) Gastrointestinal: normoactive bowel sounds, non-tender, other (obese) Integumentary: other (L hand is wrapped) Extremities: no cyanosis, pink and warm, other (1+ generalized edema) Neurologic: unable to assess Psychiatric: other (unable to assess) CBC and BMP: 06/03/19 05:30 06/03/19 05:30 ABG, PT/INR, D-dimer: ABG POC ABG pH 7.425 (7.35-7.45) 06/03/19 03:31 ABG pH 7.375 pH Units (7.350-7.450) 06/01/19 04:33 POC ABG pCO2 41.2 (35-45) 06/03/19 03:31 ABG pCO2 42.7 mm Hg 06/01/19 04:33 POC ABG pO2 90 (80-105) 06/03/19 03:31 ABG pO2 56.9 mm Hg (80.0-90.0) L 06/01/19 04:33 POC ABG HCO3 27.0 (22-26 mml/L) 06/03/19 03:31 POC ABG Total CO2 28 (23-27mmol/L) 06/03/19 03:31 POC ABG O2 Sat 97 06/03/19 03:31 ABG O2 Saturation 85.9 % (95.0-99.0) L 06/01/19 04:33 PT/INR, D-dimer PT 15.4 Sec. (12.2-14.9) H 05/01/19 Unknown INR 1.23 (0.87-1.13) H 05/01/19 Unknown Abnormal lab findings: Abnormal Labs 05/01/19 05/01/19 05/01/19 17:50 19:26 22:36 WBC RBC Hgb Hct MCV MCH MCHC RDW Lymph % (Auto) [place] % (Auto) Eos % (Auto) Lymph # [place] # Eos # Seg Neutrophils % Seg Neuts % (Manual) Lymphocytes % (Manual) Monocytes % (Manual) Eosinophils % (Manual) Nucleated RBC % Seg Neutrophils # Seg Neutrophils # Man Lymphocytes # (Manual) Monocytes # (Manual) Eosinophils # (Manual) PT INR APTT POC ABG pH 7.272 L 7.331 L ABG pH POC ABG pCO2 52.8 H POC ABG pO2 ABG pO2 ABG HCO3 ABG O2 Saturation ABG Base Excess ABG Hemoglobin Oxyhemoglobin Sodium 136 L Potassium 6.5 H* Chloride 97.2 L Carbon Dioxide BUN 60 H Creatinine Glucose 113 H POC Glucose Uric Acid Calcium Phosphorus Magnesium 2.40 H AST 139 H ALT 154 H Total Creatine Kinase CK-MB (CK-2) Troponin T NT-Pro-B Natriuret Pep Total Protein Albumin 3.8 L Triglycerides HDL Cholesterol Urine WBC (Auto) Urine Creatinine Urine Total Protein Vancomycin Trough 05/01/19 05/01/19 05/01/19 Unknown Unknown Unknown WBC 16.1 H RBC Hgb Hct MCV MCH MCHC RDW 17.2 H Lymph % (Auto) [place] % (Auto) 9.6 H Eos % (Auto) Lymph # [place] # 1.5 H Eos # Seg Neutrophils % 73.0 H Seg Neuts % (Manual) Lymphocytes % (Manual) Monocytes % (Manual) Eosinophils % (Manual) Nucleated RBC % Seg Neutrophils # 11.7 H Seg Neutrophils # Man Lymphocytes # (Manual) Monocytes # (Manual) Eosinophils # (Manual) PT 15.4 H INR 1.23 H APTT 22.7 L POC ABG pH ABG pH POC ABG pCO2 POC ABG pO2 ABG pO2 ABG HCO3 ABG O2 Saturation ABG Base Excess ABG Hemoglobin Oxyhemoglobin Sodium Potassium Chloride Carbon Dioxide BUN Creatinine Glucose POC Glucose Uric Acid Calcium Phosphorus Magnesium AST ALT Total Creatine Kinase CK-MB (CK-2) Troponin T NT-Pro-B Natriuret Pep 6831 H Total Protein Albumin Triglycerides HDL Cholesterol Urine WBC (Auto) Urine Creatinine Urine Total Protein Vancomycin Trough 05/01/19 05/02/19 05/02/19 Unknown 00:06 00:06 WBC RBC Hgb Hct MCV MCH MCHC RDW Lymph % (Auto) [place] % (Auto) Eos % (Auto) Lymph # [place] # Eos # Seg Neutrophils % Seg Neuts % (Manual) Lymphocytes % (Manual) Monocytes % (Manual) Eosinophils % (Manual) Nucleated RBC % Seg Neutrophils # Seg Neutrophils # Man Lymphocytes # (Manual) Monocytes # (Manual) Eosinophils # (Manual) PT INR APTT POC ABG pH ABG pH POC ABG pCO2 POC ABG pO2 ABG pO2 ABG HCO3 ABG O2 Saturation ABG Base Excess ABG Hemoglobin Oxyhemoglobin Sodium Potassium Chloride Carbon Dioxide BUN Creatinine Glucose POC Glucose Uric Acid Calcium Phosphorus 4.90 H Magnesium AST ALT Total Creatine Kinase 226 H CK-MB (CK-2) 5.7 H Troponin T 0.044 H NT-Pro-B Natriuret Pep Total Protein Albumin Triglycerides 182 H HDL Cholesterol 18 L Urine WBC (Auto) Urine Creatinine Urine Total Protein Vancomycin Trough 05/02/19 05/02/19 05/02/19 02:08 04:40 04:41 WBC 17.6 H RBC Hgb Hct MCV MCH 27 L MCHC RDW 17.4 H Lymph % (Auto) 10.2 L [place] % (Auto) 11.0 H Eos % (Auto) Lymph # [place] # 1.9 H Eos # Seg Neutrophils % 78.0 H Seg Neuts % (Manual) Lymphocytes % (Manual) Monocytes % (Manual) Eosinophils % (Manual) Nucleated RBC % Seg Neutrophils # 13.8 H Seg Neutrophils # Man Lymphocytes # (Manual) Monocytes # (Manual) Eosinophils # (Manual) PT INR APTT POC ABG pH ABG pH POC ABG pCO2 46.8 H POC ABG pO2 63 L ABG pO2 ABG HCO3 ABG O2 Saturation ABG Base Excess ABG Hemoglobin Oxyhemoglobin Sodium Potassium Chloride 96.3 L Carbon Dioxide BUN 63 H Creatinine 1.7 H Glucose POC Glucose Uric Acid Calcium Phosphorus Magnesium AST ALT Total Creatine Kinase CK-MB (CK-2) Troponin T NT-Pro-B Natriuret Pep Total Protein Albumin Triglycerides HDL Cholesterol Urine WBC (Auto) Urine Creatinine Urine Total Protein Vancomycin Trough 05/02/19 05/02/19 05/02/19 04:41 04:41 16:05 WBC RBC Hgb Hct MCV MCH MCHC RDW Lymph % (Auto) [place] % (Auto) Eos % (Auto) Lymph # [place] # Eos # Seg Neutrophils % Seg Neuts % (Manual) Lymphocytes % (Manual) Monocytes % (Manual) Eosinophils % (Manual) Nucleated RBC % Seg Neutrophils # Seg Neutrophils # Man Lymphocytes # (Manual) Monocytes # (Manual) Eosinophils # (Manual) PT INR APTT POC ABG pH ABG pH POC ABG pCO2 POC ABG pO2 ABG pO2 66.6 L ABG HCO3 31.9 H ABG O2 Saturation 92.5 L ABG Base Excess 5.8 H ABG Hemoglobin 13.3 L Oxyhemoglobin 90.6 L Sodium Potassium Chloride 97.2 L Carbon Dioxide BUN 61 H Creatinine 1.8 H Glucose POC Glucose Uric Acid Calcium Phosphorus Magnesium AST ALT Total Creatine Kinase CK-MB (CK-2) 5.2 H Troponin T 0.067 H D NT-Pro-B Natriuret Pep Total Protein Albumin Triglycerides HDL Cholesterol Urine WBC (Auto) Urine Creatinine Urine Total Protein Vancomycin Trough 05/02/19 05/03/19 05/03/19 20:39 04:35 05:05 WBC 11.8 H RBC Hgb Hct MCV MCH 27 L MCHC 31 L RDW 17.2 H Lymph % (Auto) [place] % (Auto) Eos % (Auto) Lymph # [place] # Eos # Seg Neutrophils % Seg Neuts % (Manual) Lymphocytes % (Manual) Monocytes % (Manual) Eosinophils % (Manual) Nucleated RBC % Seg Neutrophils # Seg Neutrophils # Man Lymphocytes # (Manual) Monocytes # (Manual) Eosinophils # (Manual) PT INR APTT POC ABG pH ABG pH POC ABG pCO2 53.6 H 54.0 H POC ABG pO2 55 L 63 L ABG pO2 ABG HCO3 ABG O2 Saturation ABG Base Excess ABG Hemoglobin Oxyhemoglobin Sodium Potassium Chloride Carbon Dioxide BUN Creatinine Glucose POC Glucose Uric Acid Calcium Phosphorus Magnesium AST ALT Total Creatine Kinase CK-MB (CK-2) Troponin T NT-Pro-B Natriuret Pep Total Protein Albumin Triglycerides HDL Cholesterol Urine WBC (Auto) Urine Creatinine Urine Total Protein Vancomycin Trough 05/03/19 05/03/19 05/03/19 05:05 10:55 16:48 WBC RBC Hgb Hct MCV MCH MCHC RDW Lymph % (Auto) [place] % (Auto) Eos % (Auto) Lymph # [place] # Eos # Seg Neutrophils % Seg Neuts % (Manual) Lymphocytes % (Manual) Monocytes % (Manual) Eosinophils % (Manual) Nucleated RBC % Seg Neutrophils # Seg Neutrophils # Man Lymphocytes # (Manual) Monocytes # (Manual) Eosinophils # (Manual) PT INR APTT POC ABG pH 7.604 H ABG pH POC ABG pCO2 POC ABG pO2 58 L ABG pO2 ABG HCO3 ABG O2 Saturation ABG Base Excess ABG Hemoglobin Oxyhemoglobin Sodium Potassium Chloride Carbon Dioxide BUN 52 H Creatinine 1.9 H Glucose 103 H POC Glucose Uric Acid Calcium Phosphorus Magnesium AST ALT Total Creatine Kinase CK-MB (CK-2) Troponin T NT-Pro-B Natriuret Pep Total Protein Albumin Triglycerides HDL Cholesterol Urine WBC (Auto) 33.0 H Urine Creatinine Urine Total Protein Vancomycin Trough 05/04/19 05/04/19 05/04/19 04:49 06:50 06:50 WBC 16.0 H RBC Hgb Hct MCV MCH 27 L MCHC 31 L RDW 17.8 H Lymph % (Auto) [place] % (Auto) Eos % (Auto) Lymph # [place] # Eos # Seg Neutrophils % Seg Neuts % (Manual) Lymphocytes % (Manual) Monocytes % (Manual) Eosinophils % (Manual) Nucleated RBC % Seg Neutrophils # Seg Neutrophils # Man Lymphocytes # (Manual) Monocytes # (Manual) Eosinophils # (Manual) PT INR APTT POC ABG pH 7.273 L ABG pH POC ABG pCO2 POC ABG pO2 ABG pO2 ABG HCO3 ABG O2 Saturation ABG Base Excess ABG Hemoglobin Oxyhemoglobin Sodium 148 H Potassium 5.5 H Chloride Carbon Dioxide BUN 53 H Creatinine 3.3 H D Glucose 106 H POC Glucose Uric Acid Calcium 8.3 L Phosphorus Magnesium AST ALT Total Creatine Kinase CK-MB (CK-2) Troponin T NT-Pro-B Natriuret Pep Total Protein Albumin Triglycerides HDL Cholesterol Urine WBC (Auto) Urine Creatinine Urine Total Protein Vancomycin Trough 05/05/19 05/05/19 05/05/19 00:05 04:30 05:00 WBC RBC Hgb Hct MCV MCH MCHC RDW Lymph % (Auto) [place] % (Auto) Eos % (Auto) Lymph # [place] # Eos # Seg Neutrophils % Seg Neuts % (Manual) Lymphocytes % (Manual) Monocytes % (Manual) Eosinophils % (Manual) Nucleated RBC % Seg Neutrophils # Seg Neutrophils # Man Lymphocytes # (Manual) Monocytes # (Manual) Eosinophils # (Manual) PT INR APTT POC ABG pH 7.225 L ABG pH POC ABG pCO2 > 70 H POC ABG pO2 ABG pO2 ABG HCO3 ABG O2 Saturation ABG Base Excess ABG Hemoglobin Oxyhemoglobin Sodium 151 H Potassium 5.1 H Chloride Carbon Dioxide BUN 64 H Creatinine 3.5 H Glucose 117 H POC Glucose 141 H Uric Acid Calcium 7.5 L Phosphorus Magnesium AST 93 H ALT 65 H Total Creatine Kinase CK-MB (CK-2) Troponin T NT-Pro-B Natriuret Pep Total Protein Albumin 2.9 L Triglycerides HDL Cholesterol Urine WBC (Auto) Urine Creatinine Urine Total Protein Vancomycin Trough 05/05/19 05/05/19 05/05/19 05:00 12:02 17:46 WBC 12.0 H RBC Hgb 11.3 L Hct MCV MCH 27 L MCHC 30 L RDW 18.4 H Lymph % (Auto) 7.9 L [place] % (Auto) 10.2 H Eos % (Auto) Lymph # 1.0 L [place] # 1.2 H Eos # Seg Neutrophils % 80.8 H Seg Neuts % (Manual) Lymphocytes % (Manual) Monocytes % (Manual) Eosinophils % (Manual) Nucleated RBC % Seg Neutrophils # 9.7 H Seg Neutrophils # Man Lymphocytes # (Manual) Monocytes # (Manual) Eosinophils # (Manual) PT INR APTT POC ABG pH ABG pH POC ABG pCO2 POC ABG pO2 ABG pO2 ABG HCO3 ABG O2 Saturation ABG Base Excess ABG Hemoglobin Oxyhemoglobin Sodium Potassium Chloride Carbon Dioxide BUN Creatinine Glucose POC Glucose 125 H 112 H Uric Acid Calcium Phosphorus Magnesium AST ALT Total Creatine Kinase CK-MB (CK-2) Troponin T NT-Pro-B Natriuret Pep Total Protein Albumin Triglycerides HDL Cholesterol Urine WBC (Auto) Urine Creatinine Urine Total Protein Vancomycin Trough 05/05/19 05/06/19 05/06/19 23:42 03:58 04:45 WBC 11.4 H RBC Hgb 10.7 L Hct 34.2 L MCV MCH 27 L MCHC 31 L RDW 16.9 H Lymph % (Auto) [place] % (Auto) Eos % (Auto) Lymph # [place] # Eos # Seg Neutrophils % Seg Neuts % (Manual) Lymphocytes % (Manual) Monocytes % (Manual) Eosinophils % (Manual) Nucleated RBC % Seg Neutrophils # Seg Neutrophils # Man Lymphocytes # (Manual) Monocytes # (Manual) Eosinophils # (Manual) PT INR APTT POC ABG pH ABG pH POC ABG pCO2 62.4 H POC ABG pO2 111 H ABG pO2 ABG HCO3 ABG O2 Saturation ABG Base Excess ABG Hemoglobin Oxyhemoglobin Sodium Potassium Chloride Carbon Dioxide BUN Creatinine Glucose POC Glucose 128 H Uric Acid Calcium Phosphorus Magnesium AST ALT Total Creatine Kinase CK-MB (CK-2) Troponin T NT-Pro-B Natriuret Pep Total Protein Albumin Triglycerides HDL Cholesterol Urine WBC (Auto) Urine Creatinine Urine Total Protein Vancomycin Trough 05/06/19 05/06/19 05/06/19 04:45 05:33 12:30 WBC RBC Hgb Hct MCV MCH MCHC RDW Lymph % (Auto) [place] % (Auto) Eos % (Auto) Lymph # [place] # Eos # Seg Neutrophils % Seg Neuts % (Manual) Lymphocytes % (Manual) Monocytes % (Manual) Eosinophils % (Manual) Nucleated RBC % Seg Neutrophils # Seg Neutrophils # Man Lymphocytes # (Manual) Monocytes # (Manual) Eosinophils # (Manual) PT INR APTT POC ABG pH ABG pH POC ABG pCO2 POC ABG pO2 ABG pO2 ABG HCO3 ABG O2 Saturation ABG Base Excess ABG Hemoglobin Oxyhemoglobin Sodium 149 H Potassium Chloride Carbon Dioxide 31 H BUN 67 H Creatinine 3.2 H Glucose 125 H POC Glucose 117 H 116 H Uric Acid Calcium 7.5 L Phosphorus Magnesium AST ALT Total Creatine Kinase CK-MB (CK-2) Troponin T NT-Pro-B Natriuret Pep Total Protein Albumin Triglycerides HDL Cholesterol Urine WBC (Auto) Urine Creatinine Urine Total Protein Vancomycin Trough 05/06/19 05/06/19 05/07/19 18:34 23:16 05:22 WBC RBC Hgb Hct MCV MCH MCHC RDW Lymph % (Auto) [place] % (Auto) Eos % (Auto) Lymph # [place] # Eos # Seg Neutrophils % Seg Neuts % (Manual) Lymphocytes % (Manual) Monocytes % (Manual) Eosinophils % (Manual) Nucleated RBC % Seg Neutrophils # Seg Neutrophils # Man Lymphocytes # (Manual) Monocytes # (Manual) Eosinophils # (Manual) PT INR APTT POC ABG pH ABG pH POC ABG pCO2 POC ABG pO2 ABG pO2 ABG HCO3 ABG O2 Saturation ABG Base Excess ABG Hemoglobin Oxyhemoglobin Sodium Potassium Chloride Carbon Dioxide BUN Creatinine Glucose POC Glucose 128 H 143 H 166 H Uric Acid Calcium Phosphorus Magnesium AST ALT Total Creatine Kinase CK-MB (CK-2) Troponin T NT-Pro-B Natriuret Pep Total Protein Albumin Triglycerides HDL Cholesterol Urine WBC (Auto) Urine Creatinine Urine Total Protein Vancomycin Trough 05/07/19 05/07/19 05/07/19 06:33 07:03 09:35 WBC RBC Hgb Hct MCV MCH MCHC RDW Lymph % (Auto) [place] % (Auto) Eos % (Auto) Lymph # [place] # Eos # Seg Neutrophils % Seg Neuts % (Manual) Lymphocytes % (Manual) Monocytes % (Manual) Eosinophils % (Manual) Nucleated RBC % Seg Neutrophils # Seg Neutrophils # Man Lymphocytes # (Manual) Monocytes # (Manual) Eosinophils # (Manual) PT INR APTT POC ABG pH 7.263 L 7.288 L ABG pH POC ABG pCO2 POC ABG pO2 51 L 56 L ABG pO2 ABG HCO3 ABG O2 Saturation ABG Base Excess ABG Hemoglobin Oxyhemoglobin Sodium Potassium Chloride Carbon Dioxide BUN 76 H Creatinine 3.2 H Glucose 147 H POC Glucose Uric Acid Calcium 7.9 L Phosphorus Magnesium AST ALT Total Creatine Kinase CK-MB (CK-2) Troponin T NT-Pro-B Natriuret Pep Total Protein Albumin Triglycerides HDL Cholesterol Urine WBC (Auto) Urine Creatinine Urine Total Protein Vancomycin Trough 05/07/19 05/07/19 05/07/19 09:35 12:17 13:45 WBC 13.4 H RBC Hgb 11.6 L Hct MCV MCH 27 L MCHC 31 L RDW 17.5 H Lymph % (Auto) [place] % (Auto) Eos % (Auto) Lymph # [place] # Eos # Seg Neutrophils % Seg Neuts % (Manual) Lymphocytes % (Manual) Monocytes % (Manual) Eosinophils % (Manual) Nucleated RBC % Seg Neutrophils # Seg Neutrophils # Man Lymphocytes # (Manual) Monocytes # (Manual) Eosinophils # (Manual) PT INR APTT POC ABG pH ABG pH POC ABG pCO2 POC ABG pO2 ABG pO2 ABG HCO3 ABG O2 Saturation ABG Base Excess ABG Hemoglobin Oxyhemoglobin Sodium Potassium Chloride Carbon Dioxide BUN Creatinine Glucose POC Glucose 130 H Uric Acid 18.0 H Calcium Phosphorus Magnesium AST ALT Total Creatine Kinase CK-MB (CK-2) Troponin T NT-Pro-B Natriuret Pep Total Protein Albumin Triglycerides HDL Cholesterol Urine WBC (Auto) Urine Creatinine Urine Total Protein Vancomycin Trough 05/07/19 05/07/19 05/08/19 17:39 22:40 05:06 WBC RBC Hgb Hct MCV MCH MCHC RDW Lymph % (Auto) [place] % (Auto) Eos % (Auto) Lymph # [place] # Eos # Seg Neutrophils % Seg Neuts % (Manual) Lymphocytes % (Manual) Monocytes % (Manual) Eosinophils % (Manual) Nucleated RBC % Seg Neutrophils # Seg Neutrophils # Man Lymphocytes # (Manual) Monocytes # (Manual) Eosinophils # (Manual) PT INR APTT POC ABG pH ABG pH POC ABG pCO2 POC ABG pO2 ABG pO2 ABG HCO3 ABG O2 Saturation ABG Base Excess ABG Hemoglobin Oxyhemoglobin Sodium Potassium Chloride Carbon Dioxide BUN Creatinine Glucose POC Glucose 116 H 148 H Uric Acid Calcium Phosphorus Magnesium AST ALT Total Creatine Kinase CK-MB (CK-2) Troponin T NT-Pro-B Natriuret Pep Total Protein Albumin Triglycerides HDL Cholesterol Urine WBC (Auto) Urine Creatinine 292.8 H Urine Total Protein 269 H Vancomycin Trough 05/08/19 05/08/19 05/08/19 05:32 11:28 13:48 WBC RBC Hgb Hct MCV MCH MCHC RDW Lymph % (Auto) [place] % (Auto) Eos % (Auto) Lymph # [place] # Eos # Seg Neutrophils % Seg Neuts % (Manual) Lymphocytes % (Manual) Monocytes % (Manual) Eosinophils % (Manual) Nucleated RBC % Seg Neutrophils # Seg Neutrophils # Man Lymphocytes # (Manual) Monocytes # (Manual) Eosinophils # (Manual) PT INR APTT POC ABG pH ABG pH POC ABG pCO2 45.4 H POC ABG pO2 64 L ABG pO2 ABG HCO3 ABG O2 Saturation ABG Base Excess ABG Hemoglobin Oxyhemoglobin Sodium Potassium Chloride Carbon Dioxide BUN 73 H Creatinine 2.7 H Glucose 127 H POC Glucose 107 H Uric Acid Calcium 7.6 L Phosphorus Magnesium AST ALT Total Creatine Kinase CK-MB (CK-2) Troponin T NT-Pro-B Natriuret Pep Total Protein Albumin Triglycerides HDL Cholesterol Urine WBC (Auto) Urine Creatinine Urine Total Protein Vancomycin Trough 05/08/19 05/09/19 05/09/19 17:48 04:50 04:53 WBC RBC 3.07 L Hgb 8.5 L D Hct 29.3 L D MCV 96 H MCH MCHC 29 L RDW 18.1 H Lymph % (Auto) [place] % (Auto) Eos % (Auto) Lymph # [place] # Eos # Seg Neutrophils % Seg Neuts % (Manual) Lymphocytes % (Manual) Monocytes % (Manual) Eosinophils % (Manual) Nucleated RBC % Seg Neutrophils # Seg Neutrophils # Man Lymphocytes # (Manual) Monocytes # (Manual) Eosinophils # (Manual) PT INR APTT POC ABG pH 7.316 L ABG pH POC ABG pCO2 66.0 H POC ABG pO2 69 L ABG pO2 ABG HCO3 ABG O2 Saturation ABG Base Excess ABG Hemoglobin Oxyhemoglobin Sodium Potassium Chloride Carbon Dioxide BUN Creatinine Glucose POC Glucose 155 H Uric Acid Calcium Phosphorus Magnesium AST ALT Total Creatine Kinase CK-MB (CK-2) Troponin T NT-Pro-B Natriuret Pep Total Protein Albumin Triglycerides HDL Cholesterol Urine WBC (Auto) Urine Creatinine Urine Total Protein Vancomycin Trough 05/09/19 05/09/19 05/09/19 05:46 07:24 12:10 WBC RBC Hgb Hct MCV MCH MCHC RDW Lymph % (Auto) [place] % (Auto) Eos % (Auto) Lymph # [place] # Eos # Seg Neutrophils % Seg Neuts % (Manual) Lymphocytes % (Manual) Monocytes % (Manual) Eosinophils % (Manual) Nucleated RBC % Seg Neutrophils # Seg Neutrophils # Man Lymphocytes # (Manual) Monocytes # (Manual) Eosinophils # (Manual) PT INR APTT POC ABG pH ABG pH POC ABG pCO2 POC ABG pO2 ABG pO2 ABG HCO3 ABG O2 Saturation ABG Base Excess ABG Hemoglobin Oxyhemoglobin Sodium Potassium Chloride Carbon Dioxide BUN 73 H Creatinine 2.4 H Glucose 153 H POC Glucose 123 H 148 H Uric Acid Calcium 8.2 L Phosphorus Magnesium AST 45 H ALT Total Creatine Kinase CK-MB (CK-2) Troponin T NT-Pro-B Natriuret Pep Total Protein 6.0 L Albumin 1.9 L Triglycerides HDL Cholesterol Urine WBC (Auto) Urine Creatinine Urine Total Protein Vancomycin Trough 05/09/19 05/09/19 05/10/19 18:23 23:26 04:52 WBC RBC Hgb Hct MCV MCH MCHC RDW Lymph % (Auto) [place] % (Auto) Eos % (Auto) Lymph # [place] # Eos # Seg Neutrophils % Seg Neuts % (Manual) Lymphocytes % (Manual) Monocytes % (Manual) Eosinophils % (Manual) Nucleated RBC % Seg Neutrophils # Seg Neutrophils # Man Lymphocytes # (Manual) Monocytes # (Manual) Eosinophils # (Manual) PT INR APTT POC ABG pH 7.305 L ABG pH POC ABG pCO2 62.6 H POC ABG pO2 ABG pO2 ABG HCO3 ABG O2 Saturation ABG Base Excess ABG Hemoglobin Oxyhemoglobin Sodium Potassium Chloride Carbon Dioxide BUN Creatinine Glucose POC Glucose 147 H 121 H Uric Acid Calcium Phosphorus Magnesium AST ALT Total Creatine Kinase CK-MB (CK-2) Troponin T NT-Pro-B Natriuret Pep Total Protein Albumin Triglycerides HDL Cholesterol Urine WBC (Auto) Urine Creatinine Urine Total Protein Vancomycin Trough 05/10/19 05/10/19 05/10/19 05:00 05:00 05:50 WBC RBC Hgb 10.3 L Hct 33.7 L MCV MCH 27 L MCHC 31 L RDW 17.0 H Lymph % (Auto) [place] % (Auto) Eos % (Auto) Lymph # [place] # Eos # Seg Neutrophils % Seg Neuts % (Manual) Lymphocytes % (Manual) Monocytes % (Manual) Eosinophils % (Manual) Nucleated RBC % Seg Neutrophils # Seg Neutrophils # Man Lymphocytes # (Manual) Monocytes # (Manual) Eosinophils # (Manual) PT INR APTT POC ABG pH ABG pH POC ABG pCO2 POC ABG pO2 ABG pO2 ABG HCO3 ABG O2 Saturation ABG Base Excess ABG Hemoglobin Oxyhemoglobin Sodium 147 H Potassium Chloride Carbon Dioxide BUN 70 H Creatinine 2.6 H Glucose 155 H POC Glucose 158 H Uric Acid Calcium 8.2 L Phosphorus Magnesium AST ALT Total Creatine Kinase CK-MB (CK-2) Troponin T NT-Pro-B Natriuret Pep Total Protein 6.1 L Albumin 2.5 L Triglycerides HDL Cholesterol Urine WBC (Auto) Urine Creatinine Urine Total Protein Vancomycin Trough 05/10/19 05/11/19 05/11/19 13:14 07:26 11:40 WBC RBC Hgb Hct MCV MCH MCHC RDW Lymph % (Auto) [place] % (Auto) Eos % (Auto) Lymph # [place] # Eos # Seg Neutrophils % Seg Neuts % (Manual) Lymphocytes % (Manual) Monocytes % (Manual) Eosinophils % (Manual) Nucleated RBC % Seg Neutrophils # Seg Neutrophils # Man Lymphocytes # (Manual) Monocytes # (Manual) Eosinophils # (Manual) PT INR APTT POC ABG pH ABG pH POC ABG pCO2 48.0 H POC ABG pO2 58 L ABG pO2 ABG HCO3 ABG O2 Saturation ABG Base Excess ABG Hemoglobin Oxyhemoglobin Sodium 147 H Potassium Chloride 107.2 H Carbon Dioxide BUN 67 H Creatinine 2.6 H Glucose 121 H POC Glucose 159 H Uric Acid Calcium Phosphorus Magnesium AST ALT Total Creatine Kinase CK-MB (CK-2) Troponin T NT-Pro-B Natriuret Pep Total Protein Albumin Triglycerides HDL Cholesterol Urine WBC (Auto) Urine Creatinine Urine Total Protein Vancomycin Trough 05/11/19 05/11/19 05/12/19 18:13 23:46 04:40 WBC RBC Hgb Hct MCV MCH MCHC RDW Lymph % (Auto) [place] % (Auto) Eos % (Auto) Lymph # [place] # Eos # Seg Neutrophils % Seg Neuts % (Manual) Lymphocytes % (Manual) Monocytes % (Manual) Eosinophils % (Manual) Nucleated RBC % Seg Neutrophils # Seg Neutrophils # Man Lymphocytes # (Manual) Monocytes # (Manual) Eosinophils # (Manual) PT INR APTT POC ABG pH ABG pH 7.264 L POC ABG pCO2 POC ABG pO2 ABG pO2 66.8 L ABG HCO3 31.0 H ABG O2 Saturation 92.0 L ABG Base Excess ABG Hemoglobin 10.3 L Oxyhemoglobin 90.1 L Sodium Potassium Chloride Carbon Dioxide BUN Creatinine Glucose POC Glucose 120 H 121 H Uric Acid Calcium Phosphorus Magnesium AST ALT Total Creatine Kinase CK-MB (CK-2) Troponin T NT-Pro-B Natriuret Pep Total Protein Albumin Triglycerides HDL Cholesterol Urine WBC (Auto) Urine Creatinine Urine Total Protein Vancomycin Trough 05/12/19 05/12/19 05/12/19 04:45 04:45 11:14 WBC RBC Hgb 10.2 L Hct 32.4 L MCV MCH MCHC 31 L RDW 17.2 H Lymph % (Auto) [place] % (Auto) Eos % (Auto) Lymph # [place] # Eos # Seg Neutrophils % Seg Neuts % (Manual) Lymphocytes % (Manual) Monocytes % (Manual) Eosinophils % (Manual) Nucleated RBC % Seg Neutrophils # Seg Neutrophils # Man Lymphocytes # (Manual) Monocytes # (Manual) Eosinophils # (Manual) PT INR APTT POC ABG pH 7.284 L ABG pH POC ABG pCO2 67.8 H POC ABG pO2 ABG pO2 ABG HCO3 ABG O2 Saturation ABG Base Excess ABG Hemoglobin Oxyhemoglobin Sodium Potassium Chloride Carbon Dioxide BUN 63 H Creatinine 2.4 H Glucose 110 H POC Glucose Uric Acid Calcium Phosphorus Magnesium AST ALT Total Creatine Kinase CK-MB (CK-2) Troponin T NT-Pro-B Natriuret Pep Total Protein Albumin Triglycerides HDL Cholesterol Urine WBC (Auto) Urine Creatinine Urine Total Protein Vancomycin Trough 05/12/19 05/12/19 05/13/19 11:44 23:11 04:30 WBC RBC Hgb Hct MCV MCH MCHC RDW Lymph % (Auto) [place] % (Auto) Eos % (Auto) Lymph # [place] # Eos # Seg Neutrophils % Seg Neuts % (Manual) Lymphocytes % (Manual) Monocytes % (Manual) Eosinophils % (Manual) Nucleated RBC % Seg Neutrophils # Seg Neutrophils # Man Lymphocytes # (Manual) Monocytes # (Manual) Eosinophils # (Manual) PT INR APTT POC ABG pH ABG pH 7.288 L POC ABG pCO2 POC ABG pO2 ABG pO2 109.7 H ABG HCO3 30.9 H ABG O2 Saturation ABG Base Excess 3.2 H ABG Hemoglobin 9.6 L Oxyhemoglobin Sodium Potassium Chloride Carbon Dioxide BUN Creatinine Glucose POC Glucose 126 H 147 H Uric Acid Calcium Phosphorus Magnesium AST ALT Total Creatine Kinase CK-MB (CK-2) Troponin T NT-Pro-B Natriuret Pep Total Protein Albumin Triglycerides HDL Cholesterol Urine WBC (Auto) Urine Creatinine Urine Total Protein Vancomycin Trough 05/13/19 05/13/19 05/14/19 06:27 11:58 04:00 WBC RBC 3.16 L Hgb 9.3 L Hct 27.9 L MCV MCH MCHC RDW 17.1 H Lymph % (Auto) [place] % (Auto) Eos % (Auto) Lymph # [place] # Eos # Seg Neutrophils % Seg Neuts % (Manual) Lymphocytes % (Manual) Monocytes % (Manual) Eosinophils % (Manual) Nucleated RBC % Seg Neutrophils # Seg Neutrophils # Man Lymphocytes # (Manual) Monocytes # (Manual) Eosinophils # (Manual) PT INR APTT POC ABG pH ABG pH POC ABG pCO2 POC ABG pO2 ABG pO2 ABG HCO3 ABG O2 Saturation ABG Base Excess ABG Hemoglobin Oxyhemoglobin Sodium Potassium Chloride Carbon Dioxide BUN Creatinine Glucose POC Glucose 113 H 130 H Uric Acid Calcium Phosphorus Magnesium AST ALT Total Creatine Kinase CK-MB (CK-2) Troponin T NT-Pro-B Natriuret Pep Total Protein Albumin Triglycerides HDL Cholesterol Urine WBC (Auto) Urine Creatinine Urine Total Protein Vancomycin Trough 05/14/19 05/14/19 05/14/19 04:00 04:34 05:32 WBC RBC Hgb Hct MCV MCH MCHC RDW Lymph % (Auto) [place] % (Auto) Eos % (Auto) Lymph # [place] # Eos # Seg Neutrophils % Seg Neuts % (Manual) Lymphocytes % (Manual) Monocytes % (Manual) Eosinophils % (Manual) Nucleated RBC % Seg Neutrophils # Seg Neutrophils # Man Lymphocytes # (Manual) Monocytes # (Manual) Eosinophils # (Manual) PT INR APTT POC ABG pH 7.328 L ABG pH POC ABG pCO2 61.7 H POC ABG pO2 ABG pO2 ABG HCO3 ABG O2 Saturation ABG Base Excess ABG Hemoglobin Oxyhemoglobin Sodium 135 L D Potassium Chloride Carbon Dioxide BUN 57 H Creatinine 2.2 H Glucose 115 H POC Glucose 115 H Uric Acid Calcium 8.1 L Phosphorus Magnesium AST ALT Total Creatine Kinase CK-MB (CK-2) Troponin T NT-Pro-B Natriuret Pep Total Protein Albumin Triglycerides HDL Cholesterol Urine WBC (Auto) Urine Creatinine Urine Total Protein Vancomycin Trough 05/14/19 05/15/19 05/15/19 12:11 05:10 05:24 WBC RBC Hgb Hct MCV MCH MCHC RDW Lymph % (Auto) [place] % (Auto) Eos % (Auto) Lymph # [place] # Eos # Seg Neutrophils % Seg Neuts % (Manual) Lymphocytes % (Manual) Monocytes % (Manual) Eosinophils % (Manual) Nucleated RBC % Seg Neutrophils # Seg Neutrophils # Man Lymphocytes # (Manual) Monocytes # (Manual) Eosinophils # (Manual) PT INR APTT POC ABG pH ABG pH 7.342 L POC ABG pCO2 POC ABG pO2 ABG pO2 79.1 L ABG HCO3 28.2 H ABG O2 Saturation ABG Base Excess ABG Hemoglobin 7.0 L Oxyhemoglobin 94.4 L Sodium Potassium Chloride Carbon Dioxide BUN Creatinine Glucose POC Glucose 110 H 116 H Uric Acid Calcium Phosphorus Magnesium AST ALT Total Creatine Kinase CK-MB (CK-2) Troponin T NT-Pro-B Natriuret Pep Total Protein Albumin Triglycerides HDL Cholesterol Urine WBC (Auto) Urine Creatinine Urine Total Protein Vancomycin Trough 05/15/19 05/15/19 05/16/19 09:00 18:12 04:50 WBC RBC Hgb Hct MCV MCH MCHC RDW Lymph % (Auto) [place] % (Auto) Eos % (Auto) Lymph # [place] # Eos # Seg Neutrophils % Seg Neuts % (Manual) Lymphocytes % (Manual) Monocytes % (Manual) Eosinophils % (Manual) Nucleated RBC % Seg Neutrophils # Seg Neutrophils # Man Lymphocytes # (Manual) Monocytes # (Manual) Eosinophils # (Manual) PT INR APTT POC ABG pH ABG pH 7.250 L POC ABG pCO2 POC ABG pO2 ABG pO2 76.4 L ABG HCO3 ABG O2 Saturation 94.6 L ABG Base Excess -3.1 L ABG Hemoglobin 9.7 L Oxyhemoglobin 92.4 L Sodium Potassium Chloride Carbon Dioxide BUN Creatinine Glucose POC Glucose 110 H Uric Acid Calcium Phosphorus Magnesium AST ALT Total Creatine Kinase CK-MB (CK-2) Troponin T NT-Pro-B Natriuret Pep Total Protein Albumin Triglycerides HDL Cholesterol Urine WBC (Auto) Urine Creatinine Urine Total Protein Vancomycin Trough 20.5 H 05/16/19 05/16/19 05/17/19 05:50 05:50 04:20 WBC RBC 3.36 L 3.44 L Hgb 9.4 L 9.3 L Hct 29.1 L 29.7 L MCV MCH 27 L MCHC 31 L RDW 17.6 H 17.6 H Lymph % (Auto) [place] % (Auto) Eos % (Auto) Lymph # [place] # Eos # Seg Neutrophils % Seg Neuts % (Manual) 77.0 H Lymphocytes % (Manual) 5.0 L Monocytes % (Manual) Eosinophils % (Manual) 10.0 H Nucleated RBC % Seg Neutrophils # Seg Neutrophils # Man Lymphocytes # (Manual) 0.5 L Monocytes # (Manual) Eosinophils # (Manual) 0.9 H PT INR APTT POC ABG pH ABG pH POC ABG pCO2 POC ABG pO2 ABG pO2 ABG HCO3 ABG O2 Saturation ABG Base Excess ABG Hemoglobin Oxyhemoglobin Sodium Potassium Chloride Carbon Dioxide BUN 83 H Creatinine 4.4 H D Glucose 118 H POC Glucose Uric Acid Calcium Phosphorus Magnesium AST ALT Total Creatine Kinase CK-MB (CK-2) Troponin T NT-Pro-B Natriuret Pep Total Protein Albumin Triglycerides HDL Cholesterol Urine WBC (Auto) Urine Creatinine Urine Total Protein Vancomycin Trough 05/17/19 05/17/19 05/18/19 04:30 Unknown 01:50 WBC RBC 3.49 L Hgb 9.4 L Hct 30.0 L MCV MCH 27 L MCHC 31 L RDW 17.8 H Lymph % (Auto) 7.9 L [place] % (Auto) 15.4 H Eos % (Auto) 6.3 H Lymph # 0.7 L [place] # 1.4 H Eos # 0.6 H Seg Neutrophils % 70.2 H Seg Neuts % (Manual) Lymphocytes % (Manual) Monocytes % (Manual) Eosinophils % (Manual) Nucleated RBC % Seg Neutrophils # Seg Neutrophils # Man Lymphocytes # (Manual) Monocytes # (Manual) Eosinophils # (Manual) PT INR APTT POC ABG pH ABG pH 7.272 L POC ABG pCO2 POC ABG pO2 ABG pO2 75.7 L ABG HCO3 ABG O2 Saturation 93.8 L ABG Base Excess -3.0 L ABG Hemoglobin 7.8 L Oxyhemoglobin 91.6 L Sodium Potassium 5.2 H Chloride Carbon Dioxide BUN 96 H Creatinine 5.7 H Glucose 112 H POC Glucose Uric Acid Calcium Phosphorus Magnesium AST ALT Total Creatine Kinase CK-MB (CK-2) Troponin T NT-Pro-B Natriuret Pep Total Protein Albumin Triglycerides 173 H HDL Cholesterol Urine WBC (Auto) Urine Creatinine Urine Total Protein Vancomycin Trough 05/18/19 05/18/19 05/18/19 01:50 04:41 05:24 WBC RBC Hgb Hct MCV MCH MCHC RDW Lymph % (Auto) [place] % (Auto) Eos % (Auto) Lymph # [place] # Eos # Seg Neutrophils % Seg Neuts % (Manual) Lymphocytes % (Manual) Monocytes % (Manual) Eosinophils % (Manual) Nucleated RBC % Seg Neutrophils # Seg Neutrophils # Man Lymphocytes # (Manual) Monocytes # (Manual) Eosinophils # (Manual) PT INR APTT POC ABG pH 7.260 L ABG pH POC ABG pCO2 54.9 H POC ABG pO2 ABG pO2 ABG HCO3 ABG O2 Saturation ABG Base Excess ABG Hemoglobin Oxyhemoglobin Sodium Potassium 5.6 H Chloride Carbon Dioxide BUN 104 H Creatinine 6.6 H Glucose 107 H POC Glucose 106 H Uric Acid Calcium Phosphorus Magnesium AST ALT Total Creatine Kinase CK-MB (CK-2) Troponin T NT-Pro-B Natriuret Pep Total Protein Albumin Triglycerides HDL Cholesterol Urine WBC (Auto) Urine Creatinine Urine Total Protein Vancomycin Trough 05/18/19 05/18/19 05/19/19 11:34 23:26 04:06 WBC RBC 3.22 L Hgb 8.8 L Hct 27.3 L MCV MCH 27 L MCHC RDW 17.5 H Lymph % (Auto) [place] % (Auto) Eos % (Auto) Lymph # [place] # Eos # Seg Neutrophils % Seg Neuts % (Manual) 74.0 H Lymphocytes % (Manual) 4.0 L Monocytes % (Manual) 11.0 H Eosinophils % (Manual) 7.0 H Nucleated RBC % 1.0 H Seg Neutrophils # Seg Neutrophils # Man Lymphocytes # (Manual) 0.3 L Monocytes # (Manual) 0.9 H Eosinophils # (Manual) 0.6 H PT INR APTT POC ABG pH ABG pH POC ABG pCO2 POC ABG pO2 ABG pO2 ABG HCO3 ABG O2 Saturation ABG Base Excess ABG Hemoglobin Oxyhemoglobin Sodium Potassium Chloride Carbon Dioxide BUN Creatinine Glucose POC Glucose 152 H 112 H Uric Acid Calcium Phosphorus Magnesium AST ALT Total Creatine Kinase CK-MB (CK-2) Troponin T NT-Pro-B Natriuret Pep Total Protein Albumin Triglycerides HDL Cholesterol Urine WBC (Auto) Urine Creatinine Urine Total Protein Vancomycin Trough 05/19/19 05/19/19 05/20/19 04:06 06:00 04:00 WBC RBC 3.40 L Hgb 9.2 L Hct 28.6 L MCV MCH 27 L MCHC RDW 17.6 H Lymph % (Auto) [place] % (Auto) Eos % (Auto) Lymph # [place] # Eos # Seg Neutrophils % Seg Neuts % (Manual) Lymphocytes % (Manual) 11.0 L Monocytes % (Manual) Eosinophils % (Manual) 14.0 H Nucleated RBC % Seg Neutrophils # Seg Neutrophils # Man Lymphocytes # (Manual) 1.1 L Monocytes # (Manual) Eosinophils # (Manual) 1.4 H PT INR APTT POC ABG pH ABG pH 7.315 L POC ABG pCO2 POC ABG pO2 ABG pO2 ABG HCO3 ABG O2 Saturation ABG Base Excess ABG Hemoglobin 6.7 L Oxyhemoglobin 94.1 L Sodium Potassium 5.2 H Chloride Carbon Dioxide 21 L BUN 110 H Creatinine 7.2 H Glucose POC Glucose Uric Acid Calcium 8.3 L Phosphorus Magnesium AST ALT Total Creatine Kinase CK-MB (CK-2) Troponin T NT-Pro-B Natriuret Pep Total Protein Albumin Triglycerides HDL Cholesterol Urine WBC (Auto) Urine Creatinine Urine Total Protein Vancomycin Trough 05/20/19 05/20/19 05/20/19 04:00 05:48 12:00 WBC RBC Hgb Hct MCV MCH MCHC RDW Lymph % (Auto) [place] % (Auto) Eos % (Auto) Lymph # [place] # Eos # Seg Neutrophils % Seg Neuts % (Manual) Lymphocytes % (Manual) Monocytes % (Manual) Eosinophils % (Manual) Nucleated RBC % Seg Neutrophils # Seg Neutrophils # Man Lymphocytes # (Manual) Monocytes # (Manual) Eosinophils # (Manual) PT INR APTT POC ABG pH ABG pH 7.281 L POC ABG pCO2 POC ABG pO2 ABG pO2 78.7 L ABG HCO3 ABG O2 Saturation 94.5 L ABG Base Excess -3.0 L ABG Hemoglobin 9.9 L Oxyhemoglobin 92.5 L Sodium 136 L Potassium 5.7 H Chloride 96.3 L Carbon Dioxide BUN 125 H Creatinine 8.3 H Glucose 106 H POC Glucose Uric Acid Calcium Phosphorus Magnesium AST ALT Total Creatine Kinase CK-MB (CK-2) Troponin T NT-Pro-B Natriuret Pep Total Protein Albumin Triglycerides HDL Cholesterol Urine WBC (Auto) 26.0 H Urine Creatinine Urine Total Protein Vancomycin Trough 05/21/19 05/21/19 05/21/19 04:33 05:20 Unknown WBC RBC 3.38 L Hgb 9.1 L Hct 28.5 L MCV MCH 27 L MCHC RDW 17.4 H Lymph % (Auto) [place] % (Auto) Eos % (Auto) Lymph # [place] # Eos # Seg Neutrophils % Seg Neuts % (Manual) 71.0 H Lymphocytes % (Manual) 1.0 L Monocytes % (Manual) 11.0 H Eosinophils % (Manual) 6.0 H Nucleated RBC % Seg Neutrophils # Seg Neutrophils # Man Lymphocytes # (Manual) 0.1 L Monocytes # (Manual) 1.0 H Eosinophils # (Manual) 0.6 H PT INR APTT POC ABG pH 7.315 L ABG pH POC ABG pCO2 57.8 H POC ABG pO2 68 L ABG pO2 ABG HCO3 ABG O2 Saturation ABG Base Excess ABG Hemoglobin Oxyhemoglobin Sodium Potassium Chloride 96.3 L Carbon Dioxide BUN 102 H Creatinine 7.0 H Glucose 103 H POC Glucose Uric Acid Calcium Phosphorus Magnesium AST ALT Total Creatine Kinase CK-MB (CK-2) Troponin T NT-Pro-B Natriuret Pep Total Protein Albumin Triglycerides HDL Cholesterol Urine WBC (Auto) Urine Creatinine Urine Total Protein Vancomycin Trough 05/22/19 05/22/19 05/22/19 03:54 06:25 06:25 WBC RBC 3.22 L Hgb 8.6 L Hct 27.0 L MCV MCH 27 L MCHC RDW 17.5 H Lymph % (Auto) [place] % (Auto) 16.2 H Eos % (Auto) 10.8 H Lymph # [place] # 1.3 H Eos # 0.9 H Seg Neutrophils % Seg Neuts % (Manual) Lymphocytes % (Manual) 10.0 L Monocytes % (Manual) 13.0 H Eosinophils % (Manual) 8.0 H Nucleated RBC % Seg Neutrophils # Seg Neutrophils # Man Lymphocytes # (Manual) 0.9 L Monocytes # (Manual) 1.1 H Eosinophils # (Manual) 0.7 H PT INR APTT POC ABG pH 7.313 L ABG pH POC ABG pCO2 55.0 H POC ABG pO2 ABG pO2 ABG HCO3 ABG O2 Saturation ABG Base Excess ABG Hemoglobin Oxyhemoglobin Sodium 135 L Potassium Chloride 94.3 L Carbon Dioxide BUN 117 H Creatinine 7.8 H Glucose POC Glucose Uric Acid Calcium 8.2 L Phosphorus Magnesium AST ALT Total Creatine Kinase CK-MB (CK-2) Troponin T NT-Pro-B Natriuret Pep Total Protein Albumin Triglycerides HDL Cholesterol Urine WBC (Auto) Urine Creatinine Urine Total Protein Vancomycin Trough 05/23/19 05/24/19 05/24/19 05:21 05:00 05:00 WBC RBC 3.18 L Hgb 8.5 L Hct 26.7 L MCV MCH 27 L MCHC RDW 17.9 H Lymph % (Auto) [place] % (Auto) Eos % (Auto) Lymph # [place] # Eos # Seg Neutrophils % Seg Neuts % (Manual) Lymphocytes % (Manual) Monocytes % (Manual) Eosinophils % (Manual) Nucleated RBC % Seg Neutrophils # Seg Neutrophils # Man Lymphocytes # (Manual) Monocytes # (Manual) Eosinophils # (Manual) PT INR APTT POC ABG pH ABG pH POC ABG pCO2 49.7 H POC ABG pO2 73 L ABG pO2 ABG HCO3 ABG O2 Saturation ABG Base Excess ABG Hemoglobin Oxyhemoglobin Sodium Potassium Chloride 95.7 L Carbon Dioxide BUN 97 H Creatinine 6.5 H Glucose POC Glucose Uric Acid Calcium 8.0 L Phosphorus Magnesium AST ALT Total Creatine Kinase CK-MB (CK-2) Troponin T NT-Pro-B Natriuret Pep Total Protein Albumin Triglycerides HDL Cholesterol Urine WBC (Auto) Urine Creatinine Urine Total Protein Vancomycin Trough 05/24/19 05/25/19 05/25/19 06:17 04:22 15:45 WBC RBC 2.98 L Hgb 8.1 L Hct 24.9 L MCV MCH 27 L MCHC RDW 17.8 H Lymph % (Auto) [place] % (Auto) Eos % (Auto) Lymph # [place] # Eos # Seg Neutrophils % Seg Neuts % (Manual) Lymphocytes % (Manual) Monocytes % (Manual) Eosinophils % (Manual) Nucleated RBC % Seg Neutrophils # Seg Neutrophils # Man Lymphocytes # (Manual) Monocytes # (Manual) Eosinophils # (Manual) PT INR APTT POC ABG pH 7.330 L 7.313 L ABG pH POC ABG pCO2 52.5 H 51.1 H POC ABG pO2 77 L ABG pO2 ABG HCO3 ABG O2 Saturation ABG Base Excess ABG Hemoglobin Oxyhemoglobin Sodium Potassium Chloride Carbon Dioxide BUN Creatinine Glucose POC Glucose Uric Acid Calcium Phosphorus Magnesium AST ALT Total Creatine Kinase CK-MB (CK-2) Troponin T NT-Pro-B Natriuret Pep Total Protein Albumin Triglycerides HDL Cholesterol Urine WBC (Auto) Urine Creatinine Urine Total Protein Vancomycin Trough 05/25/19 05/26/19 05/26/19 15:45 04:13 05:00 WBC RBC 3.10 L Hgb 8.4 L Hct 26.0 L MCV MCH 27 L MCHC RDW 17.4 H Lymph % (Auto) [place] % (Auto) Eos % (Auto) Lymph # [place] # Eos # Seg Neutrophils % Seg Neuts % (Manual) Lymphocytes % (Manual) Monocytes % (Manual) Eosinophils % (Manual) Nucleated RBC % Seg Neutrophils # Seg Neutrophils # Man Lymphocytes # (Manual) Monocytes # (Manual) Eosinophils # (Manual) PT INR APTT POC ABG pH 7.295 L ABG pH POC ABG pCO2 56.5 H POC ABG pO2 63 L ABG pO2 ABG HCO3 ABG O2 Saturation ABG Base Excess ABG Hemoglobin Oxyhemoglobin Sodium 136 L Potassium Chloride 96.8 L Carbon Dioxide BUN 83 H Creatinine 5.9 H Glucose POC Glucose Uric Acid Calcium 7.6 L Phosphorus Magnesium AST ALT Total Creatine Kinase CK-MB (CK-2) Troponin T NT-Pro-B Natriuret Pep Total Protein Albumin Triglycerides HDL Cholesterol Urine WBC (Auto) Urine Creatinine Urine Total Protein Vancomycin Trough 05/26/19 05/27/19 05/28/19 05:00 04:48 04:47 WBC RBC Hgb Hct MCV MCH MCHC RDW Lymph % (Auto) [place] % (Auto) Eos % (Auto) Lymph # [place] # Eos # Seg Neutrophils % Seg Neuts % (Manual) Lymphocytes % (Manual) Monocytes % (Manual) Eosinophils % (Manual) Nucleated RBC % Seg Neutrophils # Seg Neutrophils # Man Lymphocytes # (Manual) Monocytes # (Manual) Eosinophils # (Manual) PT INR APTT POC ABG pH 7.323 L ABG pH 7.284 L POC ABG pCO2 56.2 H POC ABG pO2 ABG pO2 71.6 L ABG HCO3 ABG O2 Saturation 92.0 L ABG Base Excess ABG Hemoglobin 7.7 L Oxyhemoglobin 89.9 L Sodium 136 L Potassium Chloride 95.3 L Carbon Dioxide BUN 96 H Creatinine 6.5 H Glucose 108 H POC Glucose Uric Acid Calcium 7.6 L Phosphorus Magnesium AST ALT Total Creatine Kinase CK-MB (CK-2) Troponin T NT-Pro-B Natriuret Pep Total Protein Albumin Triglycerides HDL Cholesterol Urine WBC (Auto) Urine Creatinine Urine Total Protein Vancomycin Trough 05/28/19 05/29/19 05/29/19 12:30 12:47 23:44 WBC RBC Hgb Hct MCV MCH MCHC RDW Lymph % (Auto) [place] % (Auto) Eos % (Auto) Lymph # [place] # Eos # Seg Neutrophils % Seg Neuts % (Manual) Lymphocytes % (Manual) Monocytes % (Manual) Eosinophils % (Manual) Nucleated RBC % Seg Neutrophils # Seg Neutrophils # Man Lymphocytes # (Manual) Monocytes # (Manual) Eosinophils # (Manual) PT INR APTT POC ABG pH ABG pH POC ABG pCO2 POC ABG pO2 ABG pO2 ABG HCO3 ABG O2 Saturation ABG Base Excess ABG Hemoglobin Oxyhemoglobin Sodium 135 L Potassium Chloride 95.3 L Carbon Dioxide BUN 82 H Creatinine 6.0 H Glucose POC Glucose 136 H 159 H Uric Acid Calcium 7.5 L Phosphorus Magnesium AST ALT Total Creatine Kinase CK-MB (CK-2) Troponin T NT-Pro-B Natriuret Pep Total Protein Albumin Triglycerides HDL Cholesterol Urine WBC (Auto) Urine Creatinine Urine Total Protein Vancomycin Trough 05/30/19 05/30/19 05/30/19 04:30 05:38 12:00 WBC RBC 3.01 L Hgb 8.2 L Hct 25.3 L MCV MCH 27 L MCHC RDW 17.5 H Lymph % (Auto) [place] % (Auto) Eos % (Auto) Lymph # [place] # Eos # Seg Neutrophils % Seg Neuts % (Manual) 80.0 H Lymphocytes % (Manual) 10.0 L Monocytes % (Manual) Eosinophils % (Manual) Nucleated RBC % Seg Neutrophils # Seg Neutrophils # Man 8.0 H Lymphocytes # (Manual) 1.0 L Monocytes # (Manual) Eosinophils # (Manual) PT INR APTT POC ABG pH ABG pH POC ABG pCO2 POC ABG pO2 73 L ABG pO2 ABG HCO3 ABG O2 Saturation ABG Base Excess ABG Hemoglobin Oxyhemoglobin Sodium Potassium Chloride Carbon Dioxide BUN Creatinine Glucose POC Glucose 166 H Uric Acid Calcium Phosphorus Magnesium AST ALT Total Creatine Kinase CK-MB (CK-2) Troponin T NT-Pro-B Natriuret Pep Total Protein Albumin Triglycerides HDL Cholesterol Urine WBC (Auto) Urine Creatinine Urine Total Protein Vancomycin Trough 05/30/19 05/31/19 05/31/19 23:45 04:07 13:04 WBC 14.3 H RBC 2.88 L Hgb 7.7 L Hct 23.9 L MCV 83 L MCH 27 L MCHC RDW 17.8 H Lymph % (Auto) [place] % (Auto) Eos % (Auto) Lymph # [place] # Eos # Seg Neutrophils % Seg Neuts % (Manual) 83.0 H Lymphocytes % (Manual) 11.0 L Monocytes % (Manual) Eosinophils % (Manual) Nucleated RBC % Seg Neutrophils # Seg Neutrophils # Man 11.9 H Lymphocytes # (Manual) Monocytes # (Manual) 0.9 H Eosinophils # (Manual) PT INR APTT POC ABG pH ABG pH POC ABG pCO2 47.4 H POC ABG pO2 ABG pO2 ABG HCO3 ABG O2 Saturation ABG Base Excess ABG Hemoglobin Oxyhemoglobin Sodium Potassium Chloride Carbon Dioxide BUN Creatinine Glucose POC Glucose 209 H Uric Acid Calcium Phosphorus Magnesium AST ALT Total Creatine Kinase CK-MB (CK-2) Troponin T NT-Pro-B Natriuret Pep Total Protein Albumin Triglycerides HDL Cholesterol Urine WBC (Auto) Urine Creatinine Urine Total Protein Vancomycin Trough 05/31/19 05/31/19 06/01/19 13:04 16:42 00:15 WBC RBC Hgb Hct MCV MCH MCHC RDW Lymph % (Auto) [place] % (Auto) Eos % (Auto) Lymph # [place] # Eos # Seg Neutrophils % Seg Neuts % (Manual) Lymphocytes % (Manual) Monocytes % (Manual) Eosinophils % (Manual) Nucleated RBC % Seg Neutrophils # Seg Neutrophils # Man Lymphocytes # (Manual) Monocytes # (Manual) Eosinophils # (Manual) PT INR APTT POC ABG pH ABG pH POC ABG pCO2 POC ABG pO2 ABG pO2 ABG HCO3 ABG O2 Saturation ABG Base Excess ABG Hemoglobin Oxyhemoglobin Sodium 129 L Potassium Chloride 88.6 L Carbon Dioxide 19 L BUN 117 H Creatinine 6.7 H Glucose 205 H POC Glucose 228 H 223 H Uric Acid Calcium 7.4 L Phosphorus 7.40 H Magnesium AST 58 H ALT 149 H Total Creatine Kinase CK-MB (CK-2) Troponin T NT-Pro-B Natriuret Pep Total Protein 6.0 L Albumin 2.5 L Triglycerides HDL Cholesterol Urine WBC (Auto) Urine Creatinine Urine Total Protein Vancomycin Trough 06/01/19 06/01/19 06/01/19 04:33 05:27 12:31 WBC RBC Hgb Hct MCV MCH MCHC RDW Lymph % (Auto) [place] % (Auto) Eos % (Auto) Lymph # [place] # Eos # Seg Neutrophils % Seg Neuts % (Manual) Lymphocytes % (Manual) Monocytes % (Manual) Eosinophils % (Manual) Nucleated RBC % Seg Neutrophils # Seg Neutrophils # Man Lymphocytes # (Manual) Monocytes # (Manual) Eosinophils # (Manual) PT INR APTT POC ABG pH ABG pH POC ABG pCO2 POC ABG pO2 ABG pO2 56.9 L ABG HCO3 ABG O2 Saturation 85.9 L ABG Base Excess ABG Hemoglobin 8.1 L Oxyhemoglobin 83.6 L Sodium Potassium Chloride Carbon Dioxide BUN Creatinine Glucose POC Glucose 183 H 217 H Uric Acid Calcium Phosphorus Magnesium AST ALT Total Creatine Kinase CK-MB (CK-2) Troponin T NT-Pro-B Natriuret Pep Total Protein Albumin Triglycerides HDL Cholesterol Urine WBC (Auto) Urine Creatinine Urine Total Protein Vancomycin Trough 06/01/19 06/02/19 06/02/19 18:20 00:00 05:33 WBC RBC Hgb Hct MCV MCH MCHC RDW Lymph % (Auto) [place] % (Auto) Eos % (Auto) Lymph # [place] # Eos # Seg Neutrophils % Seg Neuts % (Manual) Lymphocytes % (Manual) Monocytes % (Manual) Eosinophils % (Manual) Nucleated RBC % Seg Neutrophils # Seg Neutrophils # Man Lymphocytes # (Manual) Monocytes # (Manual) Eosinophils # (Manual) PT INR APTT POC ABG pH ABG pH POC ABG pCO2 POC ABG pO2 ABG pO2 ABG HCO3 ABG O2 Saturation ABG Base Excess ABG Hemoglobin Oxyhemoglobin Sodium Potassium Chloride Carbon Dioxide BUN Creatinine Glucose POC Glucose 265 H 279 H 259 H Uric Acid Calcium Phosphorus Magnesium AST ALT Total Creatine Kinase CK-MB (CK-2) Troponin T NT-Pro-B Natriuret Pep Total Protein Albumin Triglycerides HDL Cholesterol Urine WBC (Auto) Urine Creatinine Urine Total Protein Vancomycin Trough 06/02/19 06/02/19 06/02/19 11:06 11:06 11:42 WBC 13.1 H RBC 2.92 L Hgb 7.9 L Hct 24.4 L MCV MCH 27 L MCHC RDW 17.4 H Lymph % (Auto) [place] % (Auto) Eos % (Auto) Lymph # [place] # Eos # Seg Neutrophils % Seg Neuts % (Manual) 78.0 H Lymphocytes % (Manual) 12.0 L Monocytes % (Manual) 10.0 H Eosinophils % (Manual) Nucleated RBC % Seg Neutrophils # Seg Neutrophils # Man 10.2 H Lymphocytes # (Manual) Monocytes # (Manual) 1.3 H Eosinophils # (Manual) PT INR APTT POC ABG pH ABG pH POC ABG pCO2 POC ABG pO2 ABG pO2 ABG HCO3 ABG O2 Saturation ABG Base Excess ABG Hemoglobin Oxyhemoglobin Sodium 135 L Potassium Chloride 94.7 L Carbon Dioxide 21 L BUN 107 H Creatinine 4.5 H Glucose 286 H POC Glucose 263 H Uric Acid Calcium 7.9 L Phosphorus 6.30 H Magnesium AST ALT 104 H Total Creatine Kinase CK-MB (CK-2) Troponin T NT-Pro-B Natriuret Pep Total Protein 6.0 L Albumin 2.7 L Triglycerides HDL Cholesterol Urine WBC (Auto) Urine Creatinine Urine Total Protein Vancomycin Trough 06/02/19 06/02/19 06/03/19 18:17 23:55 05:30 WBC RBC Hgb Hct MCV MCH MCHC RDW Lymph % (Auto) [place] % (Auto) Eos % (Auto) Lymph # [place] # Eos # Seg Neutrophils % Seg Neuts % (Manual) Lymphocytes % (Manual) Monocytes % (Manual) Eosinophils % (Manual) Nucleated RBC % Seg Neutrophils # Seg Neutrophils # Man Lymphocytes # (Manual) Monocytes # (Manual) Eosinophils # (Manual) PT INR APTT POC ABG pH ABG pH POC ABG pCO2 POC ABG pO2 ABG pO2 ABG HCO3 ABG O2 Saturation ABG Base Excess ABG Hemoglobin Oxyhemoglobin Sodium Potassium Chloride 95.1 L Carbon Dioxide 21 L BUN 119 H Creatinine 4.1 H Glucose 330 H POC Glucose 276 H 244 H Uric Acid Calcium 8.1 L Phosphorus Magnesium AST ALT 98 H Total Creatine Kinase CK-MB (CK-2) Troponin T NT-Pro-B Natriuret Pep Total Protein 5.8 L Albumin 2.8 L Triglycerides HDL Cholesterol Urine WBC (Auto) Urine Creatinine Urine Total Protein Vancomycin Trough 06/03/19 06/03/19 05:30 06:04 WBC 12.8 H RBC 3.01 L Hgb 8.2 L Hct 25.4 L MCV MCH 27 L MCHC RDW 17.5 H Lymph % (Auto) [place] % (Auto) Eos % (Auto) Lymph # [place] # Eos # Seg Neutrophils % Seg Neuts % (Manual) 78.0 H Lymphocytes % (Manual) 10.0 L Monocytes % (Manual) 12.0 H Eosinophils % (Manual) Nucleated RBC % Seg Neutrophils # Seg Neutrophils # Man 10.0 H Lymphocytes # (Manual) Monocytes # (Manual) 1.5 H Eosinophils # (Manual) PT INR APTT POC ABG pH ABG pH POC ABG pCO2 POC ABG pO2 ABG pO2 ABG HCO3 ABG O2 Saturation ABG Base Excess ABG Hemoglobin Oxyhemoglobin Sodium Potassium Chloride Carbon Dioxide BUN Creatinine Glucose POC Glucose 254 H Uric Acid Calcium Phosphorus Magnesium AST ALT Total Creatine Kinase CK-MB (CK-2) Troponin T NT-Pro-B Natriuret Pep Total Protein Albumin Triglycerides HDL Cholesterol Urine WBC (Auto) Urine Creatinine Urine Total Protein Vancomycin Trough
--- NOTE | 2019-06-03 11:35 | Progress Note ---
Assessment and Plan Cultures: Blood cultures 05/11/19: no growth thus far Blood cultures 05/18/19 pending Sputum culture 05/11/19: no growth thus far urine culture: no growth resp culture: no growth Blood culture 05/18/2019: no growth thus far urine culture 05/20/2019: normal skin shandra, Jarad albicans sputum culture 05/20/2019: Jarad albicans Blood culture 05/23/2019: no growth A/P: 34-year-old male with obesity admitted with: #Fever, SIRS with shock: shock resolved, intermittently febrile. Initially felt to be ?aspiration related. Apparently was using CPAP. Persistent febrile again, likely ?UTI. Repeat UA showed pyuria, had indwelling Han which was removed again 05/20. Urine culture with normal skin shandra. Fevers now recurred since 05/17. Should eval for worsening pneumonia, sinusitis, but unable to fit in CT scan. candiduria also generally does not require treatment, but in this patient with recurrent fever, reasonable to consider a trial of fluconazole renally adjusted. Likely drug fever, given eosinophilia. Fever resolved with steroids. #Diffuse rash with eosinophilia: abx classes were changed on 05/25/2019 and then all abx stopped on 05/27/2019. #Acute hypoxic hypercapneic respiratory failure, possibly obesity hypoventilation syndrome: on the vent. Pulmonary managing. jarad in sputum d oes not need treatment, it almost never causes a pneumonia and is reflective of colonization, overgrowth in the setting of abx use #Morbid obesity #CARLA: creatinine elevated. dose abx accordingly. Now on HD via vascath #Elevated LFTs: RUQ US showed fatty liver, small GB sludge. Improving. #Acute encephalopathy with ?seizure activity: persistent fevers. Has been receiving empiric meningitis coverage #UTI: s/p han removal on 05/20 Recs: - continue off antibiotics - on steroids, fevers have resolved ID will sign off. Please call with questions. Burke Wilks MD, FACP [facility] ([facility] C: [phone] O: [phone] F: [phone] Subjective Date of service: 06/03/19 Principal diagnosis: HF; acute hypoxemic resp failure, SIRS, CARLA Interval history: No fever. Currently getting dialyzed. Remains intubated, sedated, on the vent. Objective - Exam Narrative Exam: Physical Exam: Constitutional: sedated, intubated. Morbid obesity Head, Ears, Nose: Normocephalic, atraumatic. External ears, nose normal Eyes: Conjunctivae/corneas clear. No icterus. No ptosis. Neck: intubated Oral: intubated Cardiovascular: S1, S2 normal. Respiratory: Good air entry, clear to auscultation bilaterally GI: Soft, non-tender; bowel sounds normal. No peritoneal signs Musculoskeletal: No pedal edema, no cyanosis. Skin: rash improving with faint erythema and some scaly areas Hem/Lymphatic: No palpable cervical or supraclavicular nodes. No lymphangitis Psych: no agitation Neurological: sedated, intubated, on vent - Constitutional Vitals: Vital Signs Temp Pulse Resp BP Pulse Ox 98.5 F 58 L 31 H 162/81 94 06/03/19 09:15 06/03/19 11:32 06/03/19 09:15 06/03/19 11:32 06/03/19 09:15 Temperature -Last 24 Hours Temperature 98.5 F Temperature 98.5 F Temperature 98.5 F Temperature 99.0 F Temperature 99.3 F Temperature 99.8 F Temperature 99.6 F Temperature 99.2 F - Labs CBC & Chem 7: 06/03/19 05:30 06/03/19 09:42 Labs: Abnormal lab results 06/02/19 06/02/19 06/02/19 Range/Units 11:06 11:06 11:42 WBC 13.1 H (4.5-11.0) K/mm3 RBC 2.92 L (3.65-5.03) M/mm3 Hgb 7.9 L (11.8-15.2) gm/dl Hct 24.4 L (35.5-45.6) % MCH 27 L (28-32) pg RDW 17.4 H (13.2-15.2) % Seg Neuts % (Manual) 78.0 H (40.0-70.0) % Lymphocytes % (Manual) 12.0 L (13.4-35.0) % Monocytes % (Manual) 10.0 H (0.0-7.3) % Seg Neutrophils # Man 10.2 H (1.8-7.7) K/mm3 Monocytes # (Manual) 1.3 H (0.0-0.8) K/mm3 Sodium 135 L (137-145) mmol/L Chloride 94.7 L (98-107) mmol/L Carbon Dioxide 21 L (22-30) mmol/L BUN 107 H (9-20) mg/dL Creatinine 4.5 H (0.8-1.5) mg/dL Glucose 286 H (75-100) mg/dL POC Glucose 263 H (70-105) Calcium 7.9 L (8.4-10.2) mg/dL Phosphorus 6.30 H (2.5-4.5) mg/dL ALT 104 H (7-56) units/L Total Protein 6.0 L (6.3-8.2) g/dL Albumin 2.7 L (3.9-5) g/dL 06/02/19 06/02/19 06/03/19 Range/Units 18:17 23:55 05:30 WBC (4.5-11.0) K/mm3 RBC (3.65-5.03) M/mm3 Hgb (11.8-15.2) gm/dl Hct (35.5-45.6) % MCH (28-32) pg RDW (13.2-15.2) % Seg Neuts % (Manual) (40.0-70.0) % Lymphocytes % (Manual) (13.4-35.0) % Monocytes % (Manual) (0.0-7.3) % Seg Neutrophils # Man (1.8-7.7) K/mm3 Monocytes # (Manual) (0.0-0.8) K/mm3 Sodium (137-145) mmol/L Chloride 95.1 L (98-107) mmol/L Carbon Dioxide 21 L (22-30) mmol/L BUN 119 H (9-20) mg/dL Creatinine 4.1 H (0.8-1.5) mg/dL Glucose 330 H (75-100) mg/dL POC Glucose 276 H 244 H (70-105) Calcium 8.1 L (8.4-10.2) mg/dL Phosphorus (2.5-4.5) mg/dL ALT 98 H (7-56) units/L Total Protein 5.8 L (6.3-8.2) g/dL Albumin 2.8 L (3.9-5) g/dL 06/03/19 06/03/19 06/03/19 Range/Units 05:30 06:04 09:42 WBC 12.8 H (4.5-11.0) K/mm3 RBC 3.01 L (3.65-5.03) M/mm3 Hgb 8.2 L (11.8-15.2) gm/dl Hct 25.4 L (35.5-45.6) % MCH 27 L (28-32) pg RDW 17.5 H (13.2-15.2) % Seg Neuts % (Manual) 78.0 H (40.0-70.0) % Lymphocytes % (Manual) 10.0 L (13.4-35.0) % Monocytes % (Manual) 12.0 H (0.0-7.3) % Seg Neutrophils # Man 10.0 H (1.8-7.7) K/mm3 Monocytes # (Manual) 1.5 H (0.0-0.8) K/mm3 Sodium (137-145) mmol/L Chloride (98-107) mmol/L Carbon Dioxide (22-30) mmol/L BUN 106 H (9-20) mg/dL Creatinine (0.8-1.5) mg/dL Glucose (75-100) mg/dL POC Glucose 254 H (70-105) Calcium (8.4-10.2) mg/dL Phosphorus (2.5-4.5) mg/dL ALT (7-56) units/L Total Protein (6.3-8.2) g/dL Albumin (3.9-5) g/dL
[2019-06-03] MEDS: EPOETIN ALFA 10,000 UNIT/1 ML INJ IV PRN (11:49)
--- NOTE | 2019-06-03 16:51 | Progress Note ---
Assessment and Plan - Patient Problems (1) Acute on chronic respiratory failure Current Visit: Yes Status: Acute Qualifiers: Respiratory failure complication: hypoxia Qualified Code(s): J96.21 - Acute and chronic respiratory failure with hypoxia Plan to address problem: Pulmonary team consulted, wean vent as tolerated, daily spontaneous breathing trial, sedation holiday, ABG in a.m., The high probability of a clinically significant, sudden or life threatening deterioration of the [pulmonary, renal, neuro, endocrine] system(s) required my full and direct attention, intervention and personal management. The aggregate critical care time was [65] minutes. This time is in addition to time spent performing reported procedures but includes the following: [x] Data Review and interpretation [x] Patient assessment and monitoring of vital signs [x] Documentation [x] Medication orders and management (2) Obesity hypoventilation syndrome Current Visit: Yes Status: Acute Plan to address problem: Supplemental oxygen, nebulizer therapy, pulse oximetry, wean vent as tolerated. (3) Morbid obesity Current Visit: Yes Status: Chronic Plan to address problem: Supportive care, poor prognosis. Outpatient bariatric surgery follow-up at discharge. (4) Cardiac arrest Current Visit: Yes Status: Acute Plan to address problem: Supportive care. Cardiology consulted, continue supportive care. (5) Anoxic brain injury Current Visit: Yes Status: Acute Plan to address problem: Neuro check, supportive care. Neurology consulted. (6) Acute kidney injury Current Visit: Yes Status: Acute Plan to address problem: Nephrology consulted, monitor urine output every shift, daily weight, serial BMP to monitor serum creatinine. Avoid nephrotoxic agents. (7) DVT prophylaxis Current Visit: Yes Status: Acute Plan to address problem: SCD to bilateral lower extremity, prophylactic Lovenox. History Interval history: 34-year-old male with acute hypoxemic and hypercapnic respiratory failure currently on ventilatory support status post cardiac arrest, and anoxic encephalopathy, obesity hypoventilation, acute kidney injury, sepsis. Patient is currently intubated and on ventilatory support and currently undergoing ICU care. Patient lab and imaging studies reviewed. Patient currently unable to be weaned from vent support. Patient has poor prognosis. No reported nursing events. Hospitalist Physical - Constitutional Vitals: Temp Pulse Resp BP Pulse Ox 98.2 F 77 26 H 168/78 87 06/03/19 16:00 06/03/19 16:00 06/03/19 16:00 06/03/19 16:00 06/03/19 16:00 General appearance: Present: mild distress, obese - EENT Eyes: Present: miosis - Neck Neck: Present: supple - Respiratory Respiratory effort: labored Respiratory: bilateral: diminished - Cardiovascular Heart Sounds: Present: S1 & S2 - Extremities Extremities: no ischemia Extremity abnormal: edema - Abdominal General gastrointestinal: soft, non-distended - Integumentary Integumentary: Present: clear, dry, clammy - Psychiatric Psychiatric: no appropriate mood/affect, no intact judgment & insight, no memory intact - Neurologic Neurologic: moves all extremities, no gait normal Results - Labs CBC & Chem 7: 06/03/19 05:30 06/03/19 09:42 Labs: Laboratory Last Values WBC 12.8 K/mm3 (4.5-11.0) H 06/03/19 05:30 RBC 3.01 M/mm3 (3.65-5.03) L 06/03/19 05:30 Hgb 8.2 gm/dl (11.8-15.2) L 06/03/19 05:30 Hct 25.4 % (35.5-45.6) L 06/03/19 05:30 MCV 85 fl (84-94) 06/03/19 05:30 MCH 27 pg (28-32) L 06/03/19 05:30 MCHC 32 % (32-34) 06/03/19 05:30 RDW 17.5 % (13.2-15.2) H 06/03/19 05:30 Plt Count 342 K/mm3 (140-440) 06/03/19 05:30 Lymph % (Auto) 7.9 % (13.4-35.0) L 05/18/19 01:50 [place] % (Auto) 16.2 % (0.0-7.3) H 05/22/19 06:25 Eos % (Auto) 10.8 % (0.0-4.3) H 05/22/19 06:25 Baso % (Auto) 0.2 % (0.0-1.8) 05/18/19 01:50 Lymph # 0.7 K/mm3 (1.2-5.4) L 05/18/19 01:50 [place] # 1.3 K/mm3 (0.0-0.8) H 05/22/19 06:25 Eos # 0.9 K/mm3 (0.0-0.4) H 05/22/19 06:25 Baso # 0.0 K/mm3 (0.0-0.1) 05/22/19 06:25 Add Manual Diff Complete 06/03/19 05:30 Total Counted 100 06/03/19 05:30 Seg Neutrophils % 65.5 % (40.0-70.0) 05/22/19 06:25 Seg Neuts % (Manual) 78.0 % (40.0-70.0) H 06/03/19 05:30 Band Neutrophils % 0 % 06/03/19 05:30 Lymphocytes % (Manual) 10.0 % (13.4-35.0) L 06/03/19 05:30 Reactive Lymphs % (Man) 0 % 06/03/19 05:30 Monocytes % (Manual) 12.0 % (0.0-7.3) H 06/03/19 05:30 Eosinophils % (Manual) 0 % (0.0-4.3) 06/03/19 05:30 Basophils % (Manual) 0 % (0.0-1.8) 06/03/19 05:30 Metamyelocytes % 0 % 06/03/19 05:30 Myelocytes % 0 % 06/03/19 05:30 Promyelocytes % 0 % 06/03/19 05:30 Blast Cells % 0 % 06/03/19 05:30 Nucleated RBC % Not Reportable 06/03/19 05:30 Seg Neutrophils # 5.3 K/mm3 (1.8-7.7) 05/22/19 06:25 Seg Neutrophils # Man 10.0 K/mm3 (1.8-7.7) H 06/03/19 05:30 Band Neutrophils # 0.0 K/mm3 06/03/19 05:30 Lymphocytes # (Manual) 1.3 K/mm3 (1.2-5.4) 06/03/19 05:30 Abs React Lymphs (Man) 0.0 K/mm3 06/03/19 05:30 Monocytes # (Manual) 1.5 K/mm3 (0.0-0.8) H 06/03/19 05:30 Eosinophils # (Manual) 0.0 K/mm3 (0.0-0.4) 06/03/19 05:30 Basophils # (Manual) 0.0 K/mm3 (0.0-0.1) 06/03/19 05:30 Metamyelocytes # 0.0 K/mm3 06/03/19 05:30 Myelocytes # 0.0 K/mm3 06/03/19 05:30 Promyelocytes # 0.0 K/mm3 06/03/19 05:30 Blast Cells # 0.0 K/mm3 06/03/19 05:30 WBC Morphology Not Reportable 06/03/19 05:30 Hypersegmented Neuts Not Reportable 06/03/19 05:30 Hyposegmented Neuts Not Reportable 06/03/19 05:30 Hypogranular Neuts Not Reportable 06/03/19 05:30 Smudge Cells Not Reportable 06/03/19 05:30 Toxic Granulation Not Reportable 06/03/19 05:30 Toxic Vacuolation Not Reportable 06/03/19 05:30 Dohle Bodies Not Reportable 06/03/19 05:30 Pelger-Huet Anomaly Not Reportable 06/03/19 05:30 Renea Rods Not Reportable 06/03/19 05:30 Platelet Estimate Consistent w auto 06/03/19 05:30 Clumped Platelets Not Reportable 06/03/19 05:30 Plt Clumps, EDTA Not Reportable 06/03/19 05:30 Large Platelets Not Reportable 06/03/19 05:30 Giant Platelets Not Reportable 06/03/19 05:30 Platelet Satelliting Not Reportable 06/03/19 05:30 Plt Morphology Comment Not Reportable 06/03/19 05:30 RBC Morphology Not Reportable 06/03/19 05:30 Dimorphic RBCs Not Reportable 06/03/19 05:30 Polychromasia Not Reportable 06/03/19 05:30 Hypochromasia Not Reportable 06/03/19 05:30 Poikilocytosis Not Reportable 06/03/19 05:30 Anisocytosis Not Reportable 06/03/19 05:30 Microcytosis Not Reportable 06/03/19 05:30 Macrocytosis Not Reportable 06/03/19 05:30 Spherocytes Few 06/03/19 05:30 Pappenheimer Bodies Not Reportable 06/03/19 05:30 Sickle Cells Not Reportable 06/03/19 05:30 Target Cells Not Reportable 06/03/19 05:30 Tear Drop Cells Not Reportable 06/03/19 05:30 Ovalocytes Not Reportable 06/03/19 05:30 Stomatocytes Few 06/03/19 05:30 Helmet Cells Not Reportable 06/03/19 05:30 [place] Bodies Not Reportable 06/03/19 05:30 [place] Rings Not Reportable 06/03/19 05:30 [place] Cells Not Reportable 06/03/19 05:30 Bite Cells Not Reportable 06/03/19 05:30 Crenated Cell Not Reportable 06/03/19 05:30 Elliptocytes Not Reportable 06/03/19 05:30 Acanthocytes (Spur) Not Reportable 06/03/19 05:30 Rouleaux Not Reportable 06/03/19 05:30 Hemoglobin C Crystals Not Reportable 06/03/19 05:30 Schistocytes Few 06/03/19 05:30 Malaria parasites Not Reportable 06/03/19 05:30 Syed Bodies Not Reportable 06/03/19 05:30 Hem Pathologist Commnt No 06/03/19 05:30 PT 15.4 Sec. (12.2-14.9) H 05/01/19 Unknown INR 1.23 (0.87-1.13) H 05/01/19 Unknown APTT 22.7 Sec. (24.2-36.6) L 05/01/19 Unknown POC ABG pH 7.425 (7.35-7.45) 06/03/19 03:31 ABG pH 7.375 pH Units (7.350-7.450) 06/01/19 04:33 POC ABG pCO2 41.2 (35-45) 06/03/19 03:31 ABG pCO2 42.7 mm Hg 06/01/19 04:33 POC ABG pO2 90 (80-105) 06/03/19 03:31 ABG pO2 56.9 mm Hg (80.0-90.0) L 06/01/19 04:33 POC ABG HCO3 27.0 (22-26 mml/L) 06/03/19 03:31 ABG HCO3 24.4 mmol/L (20.0-26.0) 06/01/19 04:33 POC ABG Total CO2 28 (23-27mmol/L) 06/03/19 03:31 POC ABG O2 Sat 97 06/03/19 03:31 ABG O2 Saturation 85.9 % (95.0-99.0) L 06/01/19 04:33 ABG O2 Content 9.6 (0.0-44) 06/01/19 04:33 POC ABG Base Excess 3 ((-2) - (+3)mmol/L) 06/03/19 03:31 ABG Base Excess -0.7 mmol/L (-2.0-3.0) 06/01/19 04:33 ABG Hemoglobin 8.1 gm/dl (14.0-18.0) L 06/01/19 04:33 ABG Carboxyhemoglobin 2.1 % (0.0-5.0) 06/01/19 04:33 ABG Methemoglobin 0.5 % (0.0-1.5) 06/01/19 04:33 Oxyhemoglobin 83.6 % (95.0-99.0) L 06/01/19 04:33 FiO2 30 % 06/03/19 03:31 Sodium 137 mmol/L (137-145) 06/03/19 05:30 Potassium 4.8 mmol/L (3.6-5.0) 06/03/19 05:30 Chloride 95.1 mmol/L (98-107) L 06/03/19 05:30 Carbon Dioxide 21 mmol/L (22-30) L 06/03/19 05:30 Anion Gap 26 mmol/L 06/03/19 05:30 BUN 106 mg/dL (9-20) H 06/03/19 09:42 Creatinine 4.1 mg/dL (0.8-1.5) H 06/03/19 05:30 Estimated GFR 20 ml/min 06/03/19 05:30 BUN/Creatinine Ratio 29 % 06/03/19 05:30 Glucose 330 mg/dL (75-100) H 06/03/19 05:30 POC Glucose 274 (70-105) H 06/03/19 12:52 Osmolality 327 Mosm/kg 05/07/19 13:45 Uric Acid 18.0 mg/dL (3.5-7.6) H 05/07/19 13:45 Calcium 8.1 mg/dL (8.4-10.2) L 06/03/19 05:30 Phosphorus 6.30 mg/dL (2.5-4.5) H 06/02/19 11:06 Magnesium 1.90 mg/dL (1.7-2.3) 05/31/19 13:04 Total Bilirubin 0.30 mg/dL (0.1-1.2) 06/03/19 05:30 AST 30 units/L (5-40) 06/03/19 05:30 ALT 98 units/L (7-56) H 06/03/19 05:30 Alkaline Phosphatase 90 units/L (35-129) 06/03/19 05:30 Total Creatine Kinase 131 units/L (55-170) 05/02/19 04:41 CK-MB (CK-2) 5.2 ng/mL (0.0-4.0) H 05/02/19 04:41 CK-MB (CK-2) Rel Index 3.9 (0-4) 05/02/19 04:41 Troponin T 0.067 ng/mL (0.00-0.029) H D 05/02/19 04:41 NT-Pro-B Natriuret Pep 6831 pg/mL (0-450) H 05/01/19 Unknown Total Protein 5.8 g/dL (6.3-8.2) L 06/03/19 05:30 Albumin 2.8 g/dL (3.9-5) L 06/03/19 05:30 Albumin/Globulin Ratio 0.9 % 06/03/19 05:30 Triglycerides 173 mg/dL (2-149) H 05/17/19 Unknown Cholesterol 173 mg/dL (50-199) 05/02/19 00:06 LDL Cholesterol Direct 126 mg/dL (50-130) 05/02/19 00:06 HDL Cholesterol 18 mg/dL (40-59) L 05/02/19 00:06 Cholesterol/HDL Ratio 9.61 % 05/02/19 00:06 Procalcitonin 0.54 ng/mL (<0.15) 05/03/19 11:52 Urine Color Yellow (Yellow) 05/20/19 12:00 Urine Turbidity Cloudy (Clear) 05/20/19 12:00 Urine pH 5.0 (5.0-7.0) 05/20/19 12:00 Ur Specific [place] 1.015 (1.003-1.030) 05/20/19 12:00 Urine Protein 30 mg/dl mg/dL (Negative) 05/20/19 12:00 Urine Glucose (UA) Neg mg/dL (Negative) 05/20/19 12:00 Urine Ketones Neg mg/dL (Negative) 05/20/19 12:00 Urine Blood Lg (Negative) 05/20/19 12:00 Urine Nitrite Neg (Negative) 05/20/19 12:00 Urine Bilirubin Neg (Negative) 05/20/19 12:00 Urine Urobilinogen < 2.0 mg/dL (<2.0) 05/20/19 12:00 Ur Leukocyte Esterase Mod (Negative) 05/20/19 12:00 Urine WBC (Auto) 26.0 /HPF (0.0-6.0) H 05/20/19 12:00 Urine RBC (Auto) 83.0 /HPF (0.0-6.0) 05/20/19 12:00 Urine Bacteria (Auto) 1+ /HPF (Negative) 05/20/19 12:00 Uric Acid Crystals 3+ 05/03/19 10:55 Urine Mucus Few /HPF 05/20/19 12:00 Urine Yeast (Budding) 3+ /HPF 05/20/19 12:00 Urine Creatinine 292.8 mg/dL (0.1-20.0) H 05/07/19 22:40 Urine Sodium 11 mmol/L 05/07/19 22:40 Urine Total Protein 269 mg/dL (5-11.8) H 05/07/19 22:40 Vancomycin Trough 20.5 ug/mL (5.0-20.0) H 05/15/19 09:00 Random Vancomycin 11.5 ug/mL (0-40.0) 05/27/19 06:00 MANA Screen Negative (Negative) 05/07/19 13:45 Hepatitis A IgM Ab Non-reactive (NonReactive) 05/07/19 13:45 Hep Bs Antigen Non-reactive (Negative) 05/07/19 13:45 Hep B Core IgM Ab Non-reactive (NonReactive) 05/07/19 13:45 Hepatitis C Antibody Non-reactive (NonReactive) 05/07/19 13:45 Active Medications - Current Medications Current Medications: Generic Name Dose Route Start Last Admin Trade Name Freq PRN Reason Stop Dose Admin Albumin Human 25 gm 05/19/19 10:47 Alburx 25% (Albumin) IV ARIANE PRN Hypotension Alteplase, Recombinant 2 mg 05/25/19 09:30 05/28/19 21:15 Cathflo IV 2 mg ARIANE PRN Administration LINE FLUSH Lipase/Protease/Amylase 1 each 05/14/19 15:[address] 10,500 Unit FEEDTUBE PRN PRN For Clogged Feeding Tube Dextrose 50 gm 05/01/19 20:24 D50w (25gm) Vial IV Q30MIN PRN Hypoglycemia Protocol Enoxaparin Sodium 30 mg 05/16/19 10:00 06/03/19 09:16 Enoxaparin SUB-Q 30 mg QDAY VICKEY Administration Epoetin Hugo 10,000 unit 05/19/19 10:47 06/03/19 11:49 Procrit IV 10,000 unit ARIANE PRN Administration hemodialysis Famotidine 20 mg 05/16/19 10:00 06/03/19 09:16 Pepcid PO 20 mg DAILY VICKEY Administration Fentanyl 50 mcg 06/03/19 10:03 Sublimaze IV Q2HR PRN Pain, Moderate (4-6) Hydralazine HCl 20 mg 05/13/19 08:09 06/03/19 15:09 Apresoline IV 20 mg Q4HR PRN Administration SBP >/=160 Propofol 1,000 mg in 100 mls @ 7.011 mls/hr 05/03/19 04:00 06/03/19 12:59 Diprivan 10 Mg/Ml IV 5 mcg/kg/min TITR VICKEY 7.011 mls/hr Administration Protocol 5 MCG/KG/MIN Sodium Chloride 500 mls @ 10 mls/hr 05/06/19 15:00 Nacl 0.9% 500 Ml IV DIRECT VICKEY Sodium Chloride 100 mls @ 999 mls/hr 05/19/19 10:47 05/20/19 08:14 Nacl 0.9% IV 999 mls/hr ARIANE PRN Administration Hypotension Insulin Glargine 10 units 06/03/19 22:00 Lantus SUB-Q QHS VICKEY Insulin Human Lispro 0 unit 06/01/19 14:00 06/03/19 12:56 Humalog SUB-Q 6 unit Q6HR VICKEY Administration Protocol Labetalol HCl 100 mg 05/14/19 14:00 06/03/19 15:21 Labetalol PO 100 mg Q8HR VICKEY Administration Levetiracetam 750 mg 05/13/19 10:00 06/03/19 09:15 Keppra PO 750 mg BID VICKEY Administration Lorazepam 2 mg 05/06/19 06:22 05/10/19 16:17 Ativan IV 2 mg Q4H PRN Administration Seizures/AGITATION Methylprednisolone Sodium Succinate 125 mg 05/29/19 14:00 06/03/19 15:09 Solu-Medrol IV 125 mg Q8HR VICKEY Administration Scopolamine 1 each 05/20/19 12:00 05/20/19 12:52 Transderm-Scop TD 1 each Q72HR VICKEY Administration Simple Syrup 15 ml 05/14/19 15:01 Simple Syrup FEEDTUBE PRN PRN Hypoglycemia Simple Syrup 30 ml 05/14/19 15:01 Simple Syrup FEEDTUBE PRN PRN Hypoglycemia Sodium Bicarbonate 325 mg 05/14/19 15:01 Sodium Bicarbonate FEEDTUBE PRN PRN For Clogged Feeding Tube Nutrition/Malnutrition Assess - Dietary Evaluation Nutrition/Malnutrition Findings: Nutrition Notes Start: 05/04/19 12:54 Freq: Status: Active Protocol: Document 06/03/19 11:05 KS (Rec: 06/03/19 11:12 KS [id number]) Co-Sign 06/03/19 11:05 LP Nutrition Notes Initial or Follow up Reassessment Current Diagnosis Acute Kidney Injury,Sepsis, Respiratory Failure Other Pertinent Diagnosis on HD Current Diet Nepro 1.8 at 50 ml/hr Labs/Tests BUN 119 CR 4.1 Glu 330 POC Glu 254 Ca 8.1 Pertinent Medications Humalog Solumedrol Propofol at 7.011 ml/hr( 185kcal) Height 6 ft 4 in Weight 257.2 kg [place] Body Weight (kg) 91.81 BMI 69.0 Weight change and time frame Wt change noted. Likely due to fluid Weight Status Morbidly Obese Subjective/Other Information Pt tolerating Nepro at 50ml/hr . Pt on HD. Per MD, pt to possibly be extubated this week. Percent of energy/protein needs met: 100%/43% Burn Absent Trauma Absent Current % PO Negligible Minimum of two criteria No physical signs of malnutrition #1 Nutrition Diagnosis Inadequate oral intake Diagnosis Progress(for reassessment Continues documentation) Is patient on ventilator? Yes Is Patient Ambulatory and/or Out of Bed No REE-([facility]-confined to bed) 4342.284 Kcal/Kg value to use for calculation 8 Approximate Energy Requirements Using 8 kcal/Kg Calculation Used for Recommendations Kcal/kg Additional Notes PRO needs: 225 g (up to 2.5 g/ kg IBW) Fluid needs: 1 ml/kcal Nutrition Intervention Change Diet Order: Continue TF Nutrition Support: Nepro 1.8 at 50 ml/hr Flush with 150ml q4h Kcal 2,160 Protein (gm) 97 Fluid (mL) 872 Goal #1 TF tolerance Goal #2 Meet at least 75% kcal/PRO needs via TF Anticipated Discharge Needs: Unable to determine at this time Follow-Up By: 06/10/19 Additional Comments Follow for TF tolerance
[2019-06-03] MEDS: fentaNYL 100 MCG/2 ML INJ IV PRN (18:46)
[2019-06-03] MEDS ORDERED: INSULIN GLARGINE 100 UNITS/ML SUB-Q SCH (22:00)
[2019-06-04] MEDS: hydrALAZINE 20 MG/1 ML INJ IV PRN ×3 (04:28→22:20)
[2019-06-04] MEDS: methylPREDNISolone Sod Succinate 125 MG/2 ML INJ IV SCH ×3 (05:19→22:20)
[2019-06-04] MEDS: INSULIN LISPRO 100 UNIT/ML SUB-Q SCH ×3 (05:20→19:18)
[2019-06-04] MEDS: FAMOTIDINE 20 MG TAB PO SCH (09:47)
[2019-06-04] MEDS: ENOXAPARIN 30 MG/0.3 ML INJ SUB-Q SCH (09:47)
[2019-06-04] MEDS: levETIRAcetam 500 MG/5 ML ORAL LIQD PO SCH ×2 (09:47→22:20)
--- NOTE | 2019-06-04 10:51 | Progress Note ---
Assessment and Plan 34 y/o male with acute hypoxic, hypercapnic respiratory failure currently ventilated and sedated, now with persistent fevers and seizure and on HD 06/04/2019: This weekend will do PSV during the day and rest on vent at night. If able to come down on PSV will attempt extubation on Friday with full staff and Anesthesia readily available in case we need them. Day number 34 if intubation. Continue steroids. I will wean them down starting on Friday. 1. ID: Patient unable to fit in scanner so CT of head sinus, chest will not happen. ID has placed back on renally adjusted Vanc. he has grown out jarad from urine and a tracheal aspirate 2. Pulm: FIO2 now @ 40%. ABG was good. Will wean after HD today. Can start to come down on PEEP. Will drop to 12 3. Renal: HD per renal, will need permacath per vascular notes if patient can be afebrile. 4. Day number of 34 of intubation. 5. Trying to avoid trach as much as possible. He is on his fourth week of intubation. However still requiring high levels of PEEP. At this point, once weaned to normal PEEP levels, hoping that we can extubate. CCT 31 minutes. Subjective Date of service: 06/04/19 Principal diagnosis: HF; acute hypoxemic resp failure, SIRS, CARLA Interval history: No acute events. Tolerating PSV but high levels (15). Good ABG Objective Vital Signs - 12hr 06/03/19 06/03/19 06/03/19 23:00 23:17 23:45 Temperature 98.9 F Pulse Rate 81 73 Pulse Rate [ From Monitor] Respiratory 26 H Rate Blood Pressure 173/95 174/92 O2 Sat by Pulse 91 Oximetry 06/04/19 06/04/19 06/04/19 00:00 00:20 01:00 Temperature Pulse Rate 78 89 89 Pulse Rate [ 81 From Monitor] Respiratory 31 H 36 H Rate Blood Pressure 166/86 166/86 159/87 O2 Sat by Pulse 90 95 89 Oximetry 06/04/19 06/04/19 06/04/19 02:00 03:00 03:37 Temperature 98.9 F Pulse Rate 86 80 Pulse Rate [ From Monitor] Respiratory 36 H 31 H Rate Blood Pressure 150/87 165/88 O2 Sat by Pulse 90 90 Oximetry 06/04/19 06/04/1920 04:00 04:05 04:28 Temperature Pulse Rate 84 87 82 Pulse Rate [ 88 From Monitor] Respiratory 32 H Rate Blood Pressure 162/88 164/86 162/88 O2 Sat by Pulse 89 96 Oximetry 06/04/19 06/04/19 06/04/19 05:01 05:19 06:00 Temperature Pulse Rate 98 H 94 H 89 Pulse Rate [ From Monitor] Respiratory 35 H 29 H Rate Blood Pressure 139/62 139/62 120/49 O2 Sat by Pulse 92 94 Oximetry 06/04/19 06/04/19 07:00 08:00 Temperature 99.2 F Pulse Rate 92 H 87 Pulse Rate [ 87 From Monitor] Respiratory 34 H 33 H Rate Blood Pressure 120/51 112/48 O2 Sat by Pulse 95 Oximetry Constitutional: other (morbidly obese male, sedated on vent, orally intubated) Eyes: non-icteric ENT: oropharynx moist Neck: other (extremely large in circumference) Effort: normal Ascultation: Bilateral: diminished breath sounds (secondary to body habitus) Cardiovascular: regular rate and rhythm (no mrg) Gastrointestinal: normoactive bowel sounds, non-tender, other (obese) Integumentary: other (L hand is wrapped) Extremities: no cyanosis, pink and warm, other (1+ generalized edema) Neurologic: unable to assess Psychiatric: other (unable to assess) CBC and BMP: 06/03/19 05:30 06/03/19 09:42 ABG, PT/INR, D-dimer: ABG POC ABG pH 7.488 (7.35-7.45) H 06/04/19 04:57 ABG pH 7.375 pH Units (7.350-7.450) 06/01/19 04:33 POC ABG pCO2 38.9 (35-45) 06/04/19 04:57 ABG pCO2 42.7 mm Hg 06/01/19 04:33 POC ABG pO2 81 (80-105) 06/04/19 04:57 ABG pO2 56.9 mm Hg (80.0-90.0) L 06/01/19 04:33 POC ABG HCO3 29.5 (22-26 mml/L) 06/04/19 04:57 POC ABG Total CO2 31 (23-27mmol/L) 06/04/19 04:57 POC ABG O2 Sat 97 06/04/19 04:57 ABG O2 Saturation 85.9 % (95.0-99.0) L 06/01/19 04:33 PT/INR, D-dimer PT 15.4 Sec. (12.2-14.9) H 05/01/19 Unknown INR 1.23 (0.87-1.13) H 05/01/19 Unknown Abnormal lab findings: Abnormal Labs 05/01/19 05/01/19 05/01/19 17:50 19:26 22:36 WBC RBC Hgb Hct MCV MCH MCHC RDW Lymph % (Auto) [place] % (Auto) Eos % (Auto) Lymph # [place] # Eos # Seg Neutrophils % Seg Neuts % (Manual) Lymphocytes % (Manual) Monocytes % (Manual) Eosinophils % (Manual) Nucleated RBC % Seg Neutrophils # Seg Neutrophils # Man Lymphocytes # (Manual) Monocytes # (Manual) Eosinophils # (Manual) PT INR APTT POC ABG pH 7.272 L 7.331 L ABG pH POC ABG pCO2 52.8 H POC ABG pO2 ABG pO2 ABG HCO3 ABG O2 Saturation ABG Base Excess ABG Hemoglobin Oxyhemoglobin Sodium 136 L Potassium 6.5 H* Chloride 97.2 L Carbon Dioxide BUN 60 H Creatinine Glucose 113 H POC Glucose Uric Acid Calcium Phosphorus Magnesium 2.40 H AST 139 H ALT 154 H Total Creatine Kinase CK-MB (CK-2) Troponin T NT-Pro-B Natriuret Pep Total Protein Albumin 3.8 L Triglycerides HDL Cholesterol Urine WBC (Auto) Urine Creatinine Urine Total Protein Vancomycin Trough 05/01/19 05/01/19 05/01/19 Unknown Unknown Unknown WBC 16.1 H RBC Hgb Hct MCV MCH MCHC RDW 17.2 H Lymph % (Auto) [place] % (Auto) 9.6 H Eos % (Auto) Lymph # [place] # 1.5 H Eos # Seg Neutrophils % 73.0 H Seg Neuts % (Manual) Lymphocytes % (Manual) Monocytes % (Manual) Eosinophils % (Manual) Nucleated RBC % Seg Neutrophils # 11.7 H Seg Neutrophils # Man Lymphocytes # (Manual) Monocytes # (Manual) Eosinophils # (Manual) PT 15.4 H INR 1.23 H APTT 22.7 L POC ABG pH ABG pH POC ABG pCO2 POC ABG pO2 ABG pO2 ABG HCO3 ABG O2 Saturation ABG Base Excess ABG Hemoglobin Oxyhemoglobin Sodium Potassium Chloride Carbon Dioxide BUN Creatinine Glucose POC Glucose Uric Acid Calcium Phosphorus Magnesium AST ALT Total Creatine Kinase CK-MB (CK-2) Troponin T NT-Pro-B Natriuret Pep 6831 H Total Protein Albumin Triglycerides HDL Cholesterol Urine WBC (Auto) Urine Creatinine Urine Total Protein Vancomycin Trough 05/01/19 05/02/19 05/02/19 Unknown 00:06 00:06 WBC RBC Hgb Hct MCV MCH MCHC RDW Lymph % (Auto) [place] % (Auto) Eos % (Auto) Lymph # [place] # Eos # Seg Neutrophils % Seg Neuts % (Manual) Lymphocytes % (Manual) Monocytes % (Manual) Eosinophils % (Manual) Nucleated RBC % Seg Neutrophils # Seg Neutrophils # Man Lymphocytes # (Manual) Monocytes # (Manual) Eosinophils # (Manual) PT INR APTT POC ABG pH ABG pH POC ABG pCO2 POC ABG pO2 ABG pO2 ABG HCO3 ABG O2 Saturation ABG Base Excess ABG Hemoglobin Oxyhemoglobin Sodium Potassium Chloride Carbon Dioxide BUN Creatinine Glucose POC Glucose Uric Acid Calcium Phosphorus 4.90 H Magnesium AST ALT Total Creatine Kinase 226 H CK-MB (CK-2) 5.7 H Troponin T 0.044 H NT-Pro-B Natriuret Pep Total Protein Albumin Triglycerides 182 H HDL Cholesterol 18 L Urine WBC (Auto) Urine Creatinine Urine Total Protein Vancomycin Trough 05/02/19 05/02/19 05/02/19 02:08 04:40 04:41 WBC 17.6 H RBC Hgb Hct MCV MCH 27 L MCHC RDW 17.4 H Lymph % (Auto) 10.2 L [place] % (Auto) 11.0 H Eos % (Auto) Lymph # [place] # 1.9 H Eos # Seg Neutrophils % 78.0 H Seg Neuts % (Manual) Lymphocytes % (Manual) Monocytes % (Manual) Eosinophils % (Manual) Nucleated RBC % Seg Neutrophils # 13.8 H Seg Neutrophils # Man Lymphocytes # (Manual) Monocytes # (Manual) Eosinophils # (Manual) PT INR APTT POC ABG pH ABG pH POC ABG pCO2 46.8 H POC ABG pO2 63 L ABG pO2 ABG HCO3 ABG O2 Saturation ABG Base Excess ABG Hemoglobin Oxyhemoglobin Sodium Potassium Chloride 96.3 L Carbon Dioxide BUN 63 H Creatinine 1.7 H Glucose POC Glucose Uric Acid Calcium Phosphorus Magnesium AST ALT Total Creatine Kinase CK-MB (CK-2) Troponin T NT-Pro-B Natriuret Pep Total Protein Albumin Triglycerides HDL Cholesterol Urine WBC (Auto) Urine Creatinine Urine Total Protein Vancomycin Trough 05/02/19 05/02/19 05/02/19 04:41 04:41 16:05 WBC RBC Hgb Hct MCV MCH MCHC RDW Lymph % (Auto) [place] % (Auto) Eos % (Auto) Lymph # [place] # Eos # Seg Neutrophils % Seg Neuts % (Manual) Lymphocytes % (Manual) Monocytes % (Manual) Eosinophils % (Manual) Nucleated RBC % Seg Neutrophils # Seg Neutrophils # Man Lymphocytes # (Manual) Monocytes # (Manual) Eosinophils # (Manual) PT INR APTT POC ABG pH ABG pH POC ABG pCO2 POC ABG pO2 ABG pO2 66.6 L ABG HCO3 31.9 H ABG O2 Saturation 92.5 L ABG Base Excess 5.8 H ABG Hemoglobin 13.3 L Oxyhemoglobin 90.6 L Sodium Potassium Chloride 97.2 L Carbon Dioxide BUN 61 H Creatinine 1.8 H Glucose POC Glucose Uric Acid Calcium Phosphorus Magnesium AST ALT Total Creatine Kinase CK-MB (CK-2) 5.2 H Troponin T 0.067 H D NT-Pro-B Natriuret Pep Total Protein Albumin Triglycerides HDL Cholesterol Urine WBC (Auto) Urine Creatinine Urine Total Protein Vancomycin Trough 05/02/19 05/03/19 05/03/19 20:39 04:35 05:05 WBC 11.8 H RBC Hgb Hct MCV MCH 27 L MCHC 31 L RDW 17.2 H Lymph % (Auto) [place] % (Auto) Eos % (Auto) Lymph # [place] # Eos # Seg Neutrophils % Seg Neuts % (Manual) Lymphocytes % (Manual) Monocytes % (Manual) Eosinophils % (Manual) Nucleated RBC % Seg Neutrophils # Seg Neutrophils # Man Lymphocytes # (Manual) Monocytes # (Manual) Eosinophils # (Manual) PT INR APTT POC ABG pH ABG pH POC ABG pCO2 53.6 H 54.0 H POC ABG pO2 55 L 63 L ABG pO2 ABG HCO3 ABG O2 Saturation ABG Base Excess ABG Hemoglobin Oxyhemoglobin Sodium Potassium Chloride Carbon Dioxide BUN Creatinine Glucose POC Glucose Uric Acid Calcium Phosphorus Magnesium AST ALT Total Creatine Kinase CK-MB (CK-2) Troponin T NT-Pro-B Natriuret Pep Total Protein Albumin Triglycerides HDL Cholesterol Urine WBC (Auto) Urine Creatinine Urine Total Protein Vancomycin Trough 05/03/19 05/03/19 05/03/19 05:05 10:55 16:48 WBC RBC Hgb Hct MCV MCH MCHC RDW Lymph % (Auto) [place] % (Auto) Eos % (Auto) Lymph # [place] # Eos # Seg Neutrophils % Seg Neuts % (Manual) Lymphocytes % (Manual) Monocytes % (Manual) Eosinophils % (Manual) Nucleated RBC % Seg Neutrophils # Seg Neutrophils # Man Lymphocytes # (Manual) Monocytes # (Manual) Eosinophils # (Manual) PT INR APTT POC ABG pH 7.604 H ABG pH POC ABG pCO2 POC ABG pO2 58 L ABG pO2 ABG HCO3 ABG O2 Saturation ABG Base Excess ABG Hemoglobin Oxyhemoglobin Sodium Potassium Chloride Carbon Dioxide BUN 52 H Creatinine 1.9 H Glucose 103 H POC Glucose Uric Acid Calcium Phosphorus Magnesium AST ALT Total Creatine Kinase CK-MB (CK-2) Troponin T NT-Pro-B Natriuret Pep Total Protein Albumin Triglycerides HDL Cholesterol Urine WBC (Auto) 33.0 H Urine Creatinine Urine Total Protein Vancomycin Trough 05/04/19 05/04/19 05/04/19 04:49 06:50 06:50 WBC 16.0 H RBC Hgb Hct MCV MCH 27 L MCHC 31 L RDW 17.8 H Lymph % (Auto) [place] % (Auto) Eos % (Auto) Lymph # [place] # Eos # Seg Neutrophils % Seg Neuts % (Manual) Lymphocytes % (Manual) Monocytes % (Manual) Eosinophils % (Manual) Nucleated RBC % Seg Neutrophils # Seg Neutrophils # Man Lymphocytes # (Manual) Monocytes # (Manual) Eosinophils # (Manual) PT INR APTT POC ABG pH 7.273 L ABG pH POC ABG pCO2 POC ABG pO2 ABG pO2 ABG HCO3 ABG O2 Saturation ABG Base Excess ABG Hemoglobin Oxyhemoglobin Sodium 148 H Potassium 5.5 H Chloride Carbon Dioxide BUN 53 H Creatinine 3.3 H D Glucose 106 H POC Glucose Uric Acid Calcium 8.3 L Phosphorus Magnesium AST ALT Total Creatine Kinase CK-MB (CK-2) Troponin T NT-Pro-B Natriuret Pep Total Protein Albumin Triglycerides HDL Cholesterol Urine WBC (Auto) Urine Creatinine Urine Total Protein Vancomycin Trough 05/05/19 05/05/19 05/05/19 00:05 04:30 05:00 WBC RBC Hgb Hct MCV MCH MCHC RDW Lymph % (Auto) [place] % (Auto) Eos % (Auto) Lymph # [place] # Eos # Seg Neutrophils % Seg Neuts % (Manual) Lymphocytes % (Manual) Monocytes % (Manual) Eosinophils % (Manual) Nucleated RBC % Seg Neutrophils # Seg Neutrophils # Man Lymphocytes # (Manual) Monocytes # (Manual) Eosinophils # (Manual) PT INR APTT POC ABG pH 7.225 L ABG pH POC ABG pCO2 > 70 H POC ABG pO2 ABG pO2 ABG HCO3 ABG O2 Saturation ABG Base Excess ABG Hemoglobin Oxyhemoglobin Sodium 151 H Potassium 5.1 H Chloride Carbon Dioxide BUN 64 H Creatinine 3.5 H Glucose 117 H POC Glucose 141 H Uric Acid Calcium 7.5 L Phosphorus Magnesium AST 93 H ALT 65 H Total Creatine Kinase CK-MB (CK-2) Troponin T NT-Pro-B Natriuret Pep Total Protein Albumin 2.9 L Triglycerides HDL Cholesterol Urine WBC (Auto) Urine Creatinine Urine Total Protein Vancomycin Trough 05/05/19 05/05/19 05/05/19 05:00 12:02 17:46 WBC 12.0 H RBC Hgb 11.3 L Hct MCV MCH 27 L MCHC 30 L RDW 18.4 H Lymph % (Auto) 7.9 L [place] % (Auto) 10.2 H Eos % (Auto) Lymph # 1.0 L [place] # 1.2 H Eos # Seg Neutrophils % 80.8 H Seg Neuts % (Manual) Lymphocytes % (Manual) Monocytes % (Manual) Eosinophils % (Manual) Nucleated RBC % Seg Neutrophils # 9.7 H Seg Neutrophils # Man Lymphocytes # (Manual) Monocytes # (Manual) Eosinophils # (Manual) PT INR APTT POC ABG pH ABG pH POC ABG pCO2 POC ABG pO2 ABG pO2 ABG HCO3 ABG O2 Saturation ABG Base Excess ABG Hemoglobin Oxyhemoglobin Sodium Potassium Chloride Carbon Dioxide BUN Creatinine Glucose POC Glucose 125 H 112 H Uric Acid Calcium Phosphorus Magnesium AST ALT Total Creatine Kinase CK-MB (CK-2) Troponin T NT-Pro-B Natriuret Pep Total Protein Albumin Triglycerides HDL Cholesterol Urine WBC (Auto) Urine Creatinine Urine Total Protein Vancomycin Trough 05/05/19 05/06/19 05/06/19 23:42 03:58 04:45 WBC 11.4 H RBC Hgb 10.7 L Hct 34.2 L MCV MCH 27 L MCHC 31 L RDW 16.9 H Lymph % (Auto) [place] % (Auto) Eos % (Auto) Lymph # [place] # Eos # Seg Neutrophils % Seg Neuts % (Manual) Lymphocytes % (Manual) Monocytes % (Manual) Eosinophils % (Manual) Nucleated RBC % Seg Neutrophils # Seg Neutrophils # Man Lymphocytes # (Manual) Monocytes # (Manual) Eosinophils # (Manual) PT INR APTT POC ABG pH ABG pH POC ABG pCO2 62.4 H POC ABG pO2 111 H ABG pO2 ABG HCO3 ABG O2 Saturation ABG Base Excess ABG Hemoglobin Oxyhemoglobin Sodium Potassium Chloride Carbon Dioxide BUN Creatinine Glucose POC Glucose 128 H Uric Acid Calcium Phosphorus Magnesium AST ALT Total Creatine Kinase CK-MB (CK-2) Troponin T NT-Pro-B Natriuret Pep Total Protein Albumin Triglycerides HDL Cholesterol Urine WBC (Auto) Urine Creatinine Urine Total Protein Vancomycin Trough 05/06/19 05/06/19 05/06/19 04:45 05:33 12:30 WBC RBC Hgb Hct MCV MCH MCHC RDW Lymph % (Auto) [place] % (Auto) Eos % (Auto) Lymph # [place] # Eos # Seg Neutrophils % Seg Neuts % (Manual) Lymphocytes % (Manual) Monocytes % (Manual) Eosinophils % (Manual) Nucleated RBC % Seg Neutrophils # Seg Neutrophils # Man Lymphocytes # (Manual) Monocytes # (Manual) Eosinophils # (Manual) PT INR APTT POC ABG pH ABG pH POC ABG pCO2 POC ABG pO2 ABG pO2 ABG HCO3 ABG O2 Saturation ABG Base Excess ABG Hemoglobin Oxyhemoglobin Sodium 149 H Potassium Chloride Carbon Dioxide 31 H BUN 67 H Creatinine 3.2 H Glucose 125 H POC Glucose 117 H 116 H Uric Acid Calcium 7.5 L Phosphorus Magnesium AST ALT Total Creatine Kinase CK-MB (CK-2) Troponin T NT-Pro-B Natriuret Pep Total Protein Albumin Triglycerides HDL Cholesterol Urine WBC (Auto) Urine Creatinine Urine Total Protein Vancomycin Trough 05/06/19 05/06/19 05/07/19 18:34 23:16 05:22 WBC RBC Hgb Hct MCV MCH MCHC RDW Lymph % (Auto) [place] % (Auto) Eos % (Auto) Lymph # [place] # Eos # Seg Neutrophils % Seg Neuts % (Manual) Lymphocytes % (Manual) Monocytes % (Manual) Eosinophils % (Manual) Nucleated RBC % Seg Neutrophils # Seg Neutrophils # Man Lymphocytes # (Manual) Monocytes # (Manual) Eosinophils # (Manual) PT INR APTT POC ABG pH ABG pH POC ABG pCO2 POC ABG pO2 ABG pO2 ABG HCO3 ABG O2 Saturation ABG Base Excess ABG Hemoglobin Oxyhemoglobin Sodium Potassium Chloride Carbon Dioxide BUN Creatinine Glucose POC Glucose 128 H 143 H 166 H Uric Acid Calcium Phosphorus Magnesium AST ALT Total Creatine Kinase CK-MB (CK-2) Troponin T NT-Pro-B Natriuret Pep Total Protein Albumin Triglycerides HDL Cholesterol Urine WBC (Auto) Urine Creatinine Urine Total Protein Vancomycin Trough 05/07/19 05/07/19 05/07/19 06:33 07:03 09:35 WBC RBC Hgb Hct MCV MCH MCHC RDW Lymph % (Auto) [place] % (Auto) Eos % (Auto) Lymph # [place] # Eos # Seg Neutrophils % Seg Neuts % (Manual) Lymphocytes % (Manual) Monocytes % (Manual) Eosinophils % (Manual) Nucleated RBC % Seg Neutrophils # Seg Neutrophils # Man Lymphocytes # (Manual) Monocytes # (Manual) Eosinophils # (Manual) PT INR APTT POC ABG pH 7.263 L 7.288 L ABG pH POC ABG pCO2 POC ABG pO2 51 L 56 L ABG pO2 ABG HCO3 ABG O2 Saturation ABG Base Excess ABG Hemoglobin Oxyhemoglobin Sodium Potassium Chloride Carbon Dioxide BUN 76 H Creatinine 3.2 H Glucose 147 H POC Glucose Uric Acid Calcium 7.9 L Phosphorus Magnesium AST ALT Total Creatine Kinase CK-MB (CK-2) Troponin T NT-Pro-B Natriuret Pep Total Protein Albumin Triglycerides HDL Cholesterol Urine WBC (Auto) Urine Creatinine Urine Total Protein Vancomycin Trough 05/07/19 05/07/19 05/07/19 09:35 12:17 13:45 WBC 13.4 H RBC Hgb 11.6 L Hct MCV MCH 27 L MCHC 31 L RDW 17.5 H Lymph % (Auto) [place] % (Auto) Eos % (Auto) Lymph # [place] # Eos # Seg Neutrophils % Seg Neuts % (Manual) Lymphocytes % (Manual) Monocytes % (Manual) Eosinophils % (Manual) Nucleated RBC % Seg Neutrophils # Seg Neutrophils # Man Lymphocytes # (Manual) Monocytes # (Manual) Eosinophils # (Manual) PT INR APTT POC ABG pH ABG pH POC ABG pCO2 POC ABG pO2 ABG pO2 ABG HCO3 ABG O2 Saturation ABG Base Excess ABG Hemoglobin Oxyhemoglobin Sodium Potassium Chloride Carbon Dioxide BUN Creatinine Glucose POC Glucose 130 H Uric Acid 18.0 H Calcium Phosphorus Magnesium AST ALT Total Creatine Kinase CK-MB (CK-2) Troponin T NT-Pro-B Natriuret Pep Total Protein Albumin Triglycerides HDL Cholesterol Urine WBC (Auto) Urine Creatinine Urine Total Protein Vancomycin Trough 05/07/19 05/07/19 05/08/19 17:39 22:40 05:06 WBC RBC Hgb Hct MCV MCH MCHC RDW Lymph % (Auto) [place] % (Auto) Eos % (Auto) Lymph # [place] # Eos # Seg Neutrophils % Seg Neuts % (Manual) Lymphocytes % (Manual) Monocytes % (Manual) Eosinophils % (Manual) Nucleated RBC % Seg Neutrophils # Seg Neutrophils # Man Lymphocytes # (Manual) Monocytes # (Manual) Eosinophils # (Manual) PT INR APTT POC ABG pH ABG pH POC ABG pCO2 POC ABG pO2 ABG pO2 ABG HCO3 ABG O2 Saturation ABG Base Excess ABG Hemoglobin Oxyhemoglobin Sodium Potassium Chloride Carbon Dioxide BUN Creatinine Glucose POC Glucose 116 H 148 H Uric Acid Calcium Phosphorus Magnesium AST ALT Total Creatine Kinase CK-MB (CK-2) Troponin T NT-Pro-B Natriuret Pep Total Protein Albumin Triglycerides HDL Cholesterol Urine WBC (Auto) Urine Creatinine 292.8 H Urine Total Protein 269 H Vancomycin Trough 05/08/19 05/08/19 05/08/19 05:32 11:28 13:48 WBC RBC Hgb Hct MCV MCH MCHC RDW Lymph % (Auto) [place] % (Auto) Eos % (Auto) Lymph # [place] # Eos # Seg Neutrophils % Seg Neuts % (Manual) Lymphocytes % (Manual) Monocytes % (Manual) Eosinophils % (Manual) Nucleated RBC % Seg Neutrophils # Seg Neutrophils # Man Lymphocytes # (Manual) Monocytes # (Manual) Eosinophils # (Manual) PT INR APTT POC ABG pH ABG pH POC ABG pCO2 45.4 H POC ABG pO2 64 L ABG pO2 ABG HCO3 ABG O2 Saturation ABG Base Excess ABG Hemoglobin Oxyhemoglobin Sodium Potassium Chloride Carbon Dioxide BUN 73 H Creatinine 2.7 H Glucose 127 H POC Glucose 107 H Uric Acid Calcium 7.6 L Phosphorus Magnesium AST ALT Total Creatine Kinase CK-MB (CK-2) Troponin T NT-Pro-B Natriuret Pep Total Protein Albumin Triglycerides HDL Cholesterol Urine WBC (Auto) Urine Creatinine Urine Total Protein Vancomycin Trough 05/08/19 05/09/19 05/09/19 17:48 04:50 04:53 WBC RBC 3.07 L Hgb 8.5 L D Hct 29.3 L D MCV 96 H MCH MCHC 29 L RDW 18.1 H Lymph % (Auto) [place] % (Auto) Eos % (Auto) Lymph # [place] # Eos # Seg Neutrophils % Seg Neuts % (Manual) Lymphocytes % (Manual) Monocytes % (Manual) Eosinophils % (Manual) Nucleated RBC % Seg Neutrophils # Seg Neutrophils # Man Lymphocytes # (Manual) Monocytes # (Manual) Eosinophils # (Manual) PT INR APTT POC ABG pH 7.316 L ABG pH POC ABG pCO2 66.0 H POC ABG pO2 69 L ABG pO2 ABG HCO3 ABG O2 Saturation ABG Base Excess ABG Hemoglobin Oxyhemoglobin Sodium Potassium Chloride Carbon Dioxide BUN Creatinine Glucose POC Glucose 155 H Uric Acid Calcium Phosphorus Magnesium AST ALT Total Creatine Kinase CK-MB (CK-2) Troponin T NT-Pro-B Natriuret Pep Total Protein Albumin Triglycerides HDL Cholesterol Urine WBC (Auto) Urine Creatinine Urine Total Protein Vancomycin Trough 05/09/19 05/09/19 05/09/19 05:46 07:24 12:10 WBC RBC Hgb Hct MCV MCH MCHC RDW Lymph % (Auto) [place] % (Auto) Eos % (Auto) Lymph # [place] # Eos # Seg Neutrophils % Seg Neuts % (Manual) Lymphocytes % (Manual) Monocytes % (Manual) Eosinophils % (Manual) Nucleated RBC % Seg Neutrophils # Seg Neutrophils # Man Lymphocytes # (Manual) Monocytes # (Manual) Eosinophils # (Manual) PT INR APTT POC ABG pH ABG pH POC ABG pCO2 POC ABG pO2 ABG pO2 ABG HCO3 ABG O2 Saturation ABG Base Excess ABG Hemoglobin Oxyhemoglobin Sodium Potassium Chloride Carbon Dioxide BUN 73 H Creatinine 2.4 H Glucose 153 H POC Glucose 123 H 148 H Uric Acid Calcium 8.2 L Phosphorus Magnesium AST 45 H ALT Total Creatine Kinase CK-MB (CK-2) Troponin T NT-Pro-B Natriuret Pep Total Protein 6.0 L Albumin 1.9 L Triglycerides HDL Cholesterol Urine WBC (Auto) Urine Creatinine Urine Total Protein Vancomycin Trough 05/09/19 05/09/19 05/10/19 18:23 23:26 04:52 WBC RBC Hgb Hct MCV MCH MCHC RDW Lymph % (Auto) [place] % (Auto) Eos % (Auto) Lymph # [place] # Eos # Seg Neutrophils % Seg Neuts % (Manual) Lymphocytes % (Manual) Monocytes % (Manual) Eosinophils % (Manual) Nucleated RBC % Seg Neutrophils # Seg Neutrophils # Man Lymphocytes # (Manual) Monocytes # (Manual) Eosinophils # (Manual) PT INR APTT POC ABG pH 7.305 L ABG pH POC ABG pCO2 62.6 H POC ABG pO2 ABG pO2 ABG HCO3 ABG O2 Saturation ABG Base Excess ABG Hemoglobin Oxyhemoglobin Sodium Potassium Chloride Carbon Dioxide BUN Creatinine Glucose POC Glucose 147 H 121 H Uric Acid Calcium Phosphorus Magnesium AST ALT Total Creatine Kinase CK-MB (CK-2) Troponin T NT-Pro-B Natriuret Pep Total Protein Albumin Triglycerides HDL Cholesterol Urine WBC (Auto) Urine Creatinine Urine Total Protein Vancomycin Trough 05/10/19 05/10/19 05/10/19 05:00 05:00 05:50 WBC RBC Hgb 10.3 L Hct 33.7 L MCV MCH 27 L MCHC 31 L RDW 17.0 H Lymph % (Auto) [place] % (Auto) Eos % (Auto) Lymph # [place] # Eos # Seg Neutrophils % Seg Neuts % (Manual) Lymphocytes % (Manual) Monocytes % (Manual) Eosinophils % (Manual) Nucleated RBC % Seg Neutrophils # Seg Neutrophils # Man Lymphocytes # (Manual) Monocytes # (Manual) Eosinophils # (Manual) PT INR APTT POC ABG pH ABG pH POC ABG pCO2 POC ABG pO2 ABG pO2 ABG HCO3 ABG O2 Saturation ABG Base Excess ABG Hemoglobin Oxyhemoglobin Sodium 147 H Potassium Chloride Carbon Dioxide BUN 70 H Creatinine 2.6 H Glucose 155 H POC Glucose 158 H Uric Acid Calcium 8.2 L Phosphorus Magnesium AST ALT Total Creatine Kinase CK-MB (CK-2) Troponin T NT-Pro-B Natriuret Pep Total Protein 6.1 L Albumin 2.5 L Triglycerides HDL Cholesterol Urine WBC (Auto) Urine Creatinine Urine Total Protein Vancomycin Trough 05/10/19 05/11/19 05/11/19 13:14 07:26 11:40 WBC RBC Hgb Hct MCV MCH MCHC RDW Lymph % (Auto) [place] % (Auto) Eos % (Auto) Lymph # [place] # Eos # Seg Neutrophils % Seg Neuts % (Manual) Lymphocytes % (Manual) Monocytes % (Manual) Eosinophils % (Manual) Nucleated RBC % Seg Neutrophils # Seg Neutrophils # Man Lymphocytes # (Manual) Monocytes # (Manual) Eosinophils # (Manual) PT INR APTT POC ABG pH ABG pH POC ABG pCO2 48.0 H POC ABG pO2 58 L ABG pO2 ABG HCO3 ABG O2 Saturation ABG Base Excess ABG Hemoglobin Oxyhemoglobin Sodium 147 H Potassium Chloride 107.2 H Carbon Dioxide BUN 67 H Creatinine 2.6 H Glucose 121 H POC Glucose 159 H Uric Acid Calcium Phosphorus Magnesium AST ALT Total Creatine Kinase CK-MB (CK-2) Troponin T NT-Pro-B Natriuret Pep Total Protein Albumin Triglycerides HDL Cholesterol Urine WBC (Auto) Urine Creatinine Urine Total Protein Vancomycin Trough 05/11/19 05/11/19 05/12/19 18:13 23:46 04:40 WBC RBC Hgb Hct MCV MCH MCHC RDW Lymph % (Auto) [place] % (Auto) Eos % (Auto) Lymph # [place] # Eos # Seg Neutrophils % Seg Neuts % (Manual) Lymphocytes % (Manual) Monocytes % (Manual) Eosinophils % (Manual) Nucleated RBC % Seg Neutrophils # Seg Neutrophils # Man Lymphocytes # (Manual) Monocytes # (Manual) Eosinophils # (Manual) PT INR APTT POC ABG pH ABG pH 7.264 L POC ABG pCO2 POC ABG pO2 ABG pO2 66.8 L ABG HCO3 31.0 H ABG O2 Saturation 92.0 L ABG Base Excess ABG Hemoglobin 10.3 L Oxyhemoglobin 90.1 L Sodium Potassium Chloride Carbon Dioxide BUN Creatinine Glucose POC Glucose 120 H 121 H Uric Acid Calcium Phosphorus Magnesium AST ALT Total Creatine Kinase CK-MB (CK-2) Troponin T NT-Pro-B Natriuret Pep Total Protein Albumin Triglycerides HDL Cholesterol Urine WBC (Auto) Urine Creatinine Urine Total Protein Vancomycin Trough 05/12/19 05/12/19 05/12/19 04:45 04:45 11:14 WBC RBC Hgb 10.2 L Hct 32.4 L MCV MCH MCHC 31 L RDW 17.2 H Lymph % (Auto) [place] % (Auto) Eos % (Auto) Lymph # [place] # Eos # Seg Neutrophils % Seg Neuts % (Manual) Lymphocytes % (Manual) Monocytes % (Manual) Eosinophils % (Manual) Nucleated RBC % Seg Neutrophils # Seg Neutrophils # Man Lymphocytes # (Manual) Monocytes # (Manual) Eosinophils # (Manual) PT INR APTT POC ABG pH 7.284 L ABG pH POC ABG pCO2 67.8 H POC ABG pO2 ABG pO2 ABG HCO3 ABG O2 Saturation ABG Base Excess ABG Hemoglobin Oxyhemoglobin Sodium Potassium Chloride Carbon Dioxide BUN 63 H Creatinine 2.4 H Glucose 110 H POC Glucose Uric Acid Calcium Phosphorus Magnesium AST ALT Total Creatine Kinase CK-MB (CK-2) Troponin T NT-Pro-B Natriuret Pep Total Protein Albumin Triglycerides HDL Cholesterol Urine WBC (Auto) Urine Creatinine Urine Total Protein Vancomycin Trough 05/12/19 05/12/19 05/13/19 11:44 23:11 04:30 WBC RBC Hgb Hct MCV MCH MCHC RDW Lymph % (Auto) [place] % (Auto) Eos % (Auto) Lymph # [place] # Eos # Seg Neutrophils % Seg Neuts % (Manual) Lymphocytes % (Manual) Monocytes % (Manual) Eosinophils % (Manual) Nucleated RBC % Seg Neutrophils # Seg Neutrophils # Man Lymphocytes # (Manual) Monocytes # (Manual) Eosinophils # (Manual) PT INR APTT POC ABG pH ABG pH 7.288 L POC ABG pCO2 POC ABG pO2 ABG pO2 109.7 H ABG HCO3 30.9 H ABG O2 Saturation ABG Base Excess 3.2 H ABG Hemoglobin 9.6 L Oxyhemoglobin Sodium Potassium Chloride Carbon Dioxide BUN Creatinine Glucose POC Glucose 126 H 147 H Uric Acid Calcium Phosphorus Magnesium AST ALT Total Creatine Kinase CK-MB (CK-2) Troponin T NT-Pro-B Natriuret Pep Total Protein Albumin Triglycerides HDL Cholesterol Urine WBC (Auto) Urine Creatinine Urine Total Protein Vancomycin Trough 05/13/19 05/13/19 05/14/19 06:27 11:58 04:00 WBC RBC 3.16 L Hgb 9.3 L Hct 27.9 L MCV MCH MCHC RDW 17.1 H Lymph % (Auto) [place] % (Auto) Eos % (Auto) Lymph # [place] # Eos # Seg Neutrophils % Seg Neuts % (Manual) Lymphocytes % (Manual) Monocytes % (Manual) Eosinophils % (Manual) Nucleated RBC % Seg Neutrophils # Seg Neutrophils # Man Lymphocytes # (Manual) Monocytes # (Manual) Eosinophils # (Manual) PT INR APTT POC ABG pH ABG pH POC ABG pCO2 POC ABG pO2 ABG pO2 ABG HCO3 ABG O2 Saturation ABG Base Excess ABG Hemoglobin Oxyhemoglobin Sodium Potassium Chloride Carbon Dioxide BUN Creatinine Glucose POC Glucose 113 H 130 H Uric Acid Calcium Phosphorus Magnesium AST ALT Total Creatine Kinase CK-MB (CK-2) Troponin T NT-Pro-B Natriuret Pep Total Protein Albumin Triglycerides HDL Cholesterol Urine WBC (Auto) Urine Creatinine Urine Total Protein Vancomycin Trough 05/14/19 05/14/19 05/14/19 04:00 04:34 05:32 WBC RBC Hgb Hct MCV MCH MCHC RDW Lymph % (Auto) [place] % (Auto) Eos % (Auto) Lymph # [place] # Eos # Seg Neutrophils % Seg Neuts % (Manual) Lymphocytes % (Manual) Monocytes % (Manual) Eosinophils % (Manual) Nucleated RBC % Seg Neutrophils # Seg Neutrophils # Man Lymphocytes # (Manual) Monocytes # (Manual) Eosinophils # (Manual) PT INR APTT POC ABG pH 7.328 L ABG pH POC ABG pCO2 61.7 H POC ABG pO2 ABG pO2 ABG HCO3 ABG O2 Saturation ABG Base Excess ABG Hemoglobin Oxyhemoglobin Sodium 135 L D Potassium Chloride Carbon Dioxide BUN 57 H Creatinine 2.2 H Glucose 115 H POC Glucose 115 H Uric Acid Calcium 8.1 L Phosphorus Magnesium AST ALT Total Creatine Kinase CK-MB (CK-2) Troponin T NT-Pro-B Natriuret Pep Total Protein Albumin Triglycerides HDL Cholesterol Urine WBC (Auto) Urine Creatinine Urine Total Protein Vancomycin Trough 05/14/19 05/15/19 05/15/19 12:11 05:10 05:24 WBC RBC Hgb Hct MCV MCH MCHC RDW Lymph % (Auto) [place] % (Auto) Eos % (Auto) Lymph # [place] # Eos # Seg Neutrophils % Seg Neuts % (Manual) Lymphocytes % (Manual) Monocytes % (Manual) Eosinophils % (Manual) Nucleated RBC % Seg Neutrophils # Seg Neutrophils # Man Lymphocytes # (Manual) Monocytes # (Manual) Eosinophils # (Manual) PT INR APTT POC ABG pH ABG pH 7.342 L POC ABG pCO2 POC ABG pO2 ABG pO2 79.1 L ABG HCO3 28.2 H ABG O2 Saturation ABG Base Excess ABG Hemoglobin 7.0 L Oxyhemoglobin 94.4 L Sodium Potassium Chloride Carbon Dioxide BUN Creatinine Glucose POC Glucose 110 H 116 H Uric Acid Calcium Phosphorus Magnesium AST ALT Total Creatine Kinase CK-MB (CK-2) Troponin T NT-Pro-B Natriuret Pep Total Protein Albumin Triglycerides HDL Cholesterol Urine WBC (Auto) Urine Creatinine Urine Total Protein Vancomycin Trough 05/15/19 05/15/19 05/16/19 09:00 18:12 04:50 WBC RBC Hgb Hct MCV MCH MCHC RDW Lymph % (Auto) [place] % (Auto) Eos % (Auto) Lymph # [place] # Eos # Seg Neutrophils % Seg Neuts % (Manual) Lymphocytes % (Manual) Monocytes % (Manual) Eosinophils % (Manual) Nucleated RBC % Seg Neutrophils # Seg Neutrophils # Man Lymphocytes # (Manual) Monocytes # (Manual) Eosinophils # (Manual) PT INR APTT POC ABG pH ABG pH 7.250 L POC ABG pCO2 POC ABG pO2 ABG pO2 76.4 L ABG HCO3 ABG O2 Saturation 94.6 L ABG Base Excess -3.1 L ABG Hemoglobin 9.7 L Oxyhemoglobin 92.4 L Sodium Potassium Chloride Carbon Dioxide BUN Creatinine Glucose POC Glucose 110 H Uric Acid Calcium Phosphorus Magnesium AST ALT Total Creatine Kinase CK-MB (CK-2) Troponin T NT-Pro-B Natriuret Pep Total Protein Albumin Triglycerides HDL Cholesterol Urine WBC (Auto) Urine Creatinine Urine Total Protein Vancomycin Trough 20.5 H 05/16/19 05/16/19 05/17/19 05:50 05:50 04:20 WBC RBC 3.36 L 3.44 L Hgb 9.4 L 9.3 L Hct 29.1 L 29.7 L MCV MCH 27 L MCHC 31 L RDW 17.6 H 17.6 H Lymph % (Auto) [place] % (Auto) Eos % (Auto) Lymph # [place] # Eos # Seg Neutrophils % Seg Neuts % (Manual) 77.0 H Lymphocytes % (Manual) 5.0 L Monocytes % (Manual) Eosinophils % (Manual) 10.0 H Nucleated RBC % Seg Neutrophils # Seg Neutrophils # Man Lymphocytes # (Manual) 0.5 L Monocytes # (Manual) Eosinophils # (Manual) 0.9 H PT INR APTT POC ABG pH ABG pH POC ABG pCO2 POC ABG pO2 ABG pO2 ABG HCO3 ABG O2 Saturation ABG Base Excess ABG Hemoglobin Oxyhemoglobin Sodium Potassium Chloride Carbon Dioxide BUN 83 H Creatinine 4.4 H D Glucose 118 H POC Glucose Uric Acid Calcium Phosphorus Magnesium AST ALT Total Creatine Kinase CK-MB (CK-2) Troponin T NT-Pro-B Natriuret Pep Total Protein Albumin Triglycerides HDL Cholesterol Urine WBC (Auto) Urine Creatinine Urine Total Protein Vancomycin Trough 05/17/19 05/17/19 05/18/19 04:30 Unknown 01:50 WBC RBC 3.49 L Hgb 9.4 L Hct 30.0 L MCV MCH 27 L MCHC 31 L RDW 17.8 H Lymph % (Auto) 7.9 L [place] % (Auto) 15.4 H Eos % (Auto) 6.3 H Lymph # 0.7 L [place] # 1.4 H Eos # 0.6 H Seg Neutrophils % 70.2 H Seg Neuts % (Manual) Lymphocytes % (Manual) Monocytes % (Manual) Eosinophils % (Manual) Nucleated RBC % Seg Neutrophils # Seg Neutrophils # Man Lymphocytes # (Manual) Monocytes # (Manual) Eosinophils # (Manual) PT INR APTT POC ABG pH ABG pH 7.272 L POC ABG pCO2 POC ABG pO2 ABG pO2 75.7 L ABG HCO3 ABG O2 Saturation 93.8 L ABG Base Excess -3.0 L ABG Hemoglobin 7.8 L Oxyhemoglobin 91.6 L Sodium Potassium 5.2 H Chloride Carbon Dioxide BUN 96 H Creatinine 5.7 H Glucose 112 H POC Glucose Uric Acid Calcium Phosphorus Magnesium AST ALT Total Creatine Kinase CK-MB (CK-2) Troponin T NT-Pro-B Natriuret Pep Total Protein Albumin Triglycerides 173 H HDL Cholesterol Urine WBC (Auto) Urine Creatinine Urine Total Protein Vancomycin Trough 05/18/19 05/18/19 05/18/19 01:50 04:41 05:24 WBC RBC Hgb Hct MCV MCH MCHC RDW Lymph % (Auto) [place] % (Auto) Eos % (Auto) Lymph # [place] # Eos # Seg Neutrophils % Seg Neuts % (Manual) Lymphocytes % (Manual) Monocytes % (Manual) Eosinophils % (Manual) Nucleated RBC % Seg Neutrophils # Seg Neutrophils # Man Lymphocytes # (Manual) Monocytes # (Manual) Eosinophils # (Manual) PT INR APTT POC ABG pH 7.260 L ABG pH POC ABG pCO2 54.9 H POC ABG pO2 ABG pO2 ABG HCO3 ABG O2 Saturation ABG Base Excess ABG Hemoglobin Oxyhemoglobin Sodium Potassium 5.6 H Chloride Carbon Dioxide BUN 104 H Creatinine 6.6 H Glucose 107 H POC Glucose 106 H Uric Acid Calcium Phosphorus Magnesium AST ALT Total Creatine Kinase CK-MB (CK-2) Troponin T NT-Pro-B Natriuret Pep Total Protein Albumin Triglycerides HDL Cholesterol Urine WBC (Auto) Urine Creatinine Urine Total Protein Vancomycin Trough 05/18/19 05/18/19 05/19/19 11:34 23:26 04:06 WBC RBC 3.22 L Hgb 8.8 L Hct 27.3 L MCV MCH 27 L MCHC RDW 17.5 H Lymph % (Auto) [place] % (Auto) Eos % (Auto) Lymph # [place] # Eos # Seg Neutrophils % Seg Neuts % (Manual) 74.0 H Lymphocytes % (Manual) 4.0 L Monocytes % (Manual) 11.0 H Eosinophils % (Manual) 7.0 H Nucleated RBC % 1.0 H Seg Neutrophils # Seg Neutrophils # Man Lymphocytes # (Manual) 0.3 L Monocytes # (Manual) 0.9 H Eosinophils # (Manual) 0.6 H PT INR APTT POC ABG pH ABG pH POC ABG pCO2 POC ABG pO2 ABG pO2 ABG HCO3 ABG O2 Saturation ABG Base Excess ABG Hemoglobin Oxyhemoglobin Sodium Potassium Chloride Carbon Dioxide BUN Creatinine Glucose POC Glucose 152 H 112 H Uric Acid Calcium Phosphorus Magnesium AST ALT Total Creatine Kinase CK-MB (CK-2) Troponin T NT-Pro-B Natriuret Pep Total Protein Albumin Triglycerides HDL Cholesterol Urine WBC (Auto) Urine Creatinine Urine Total Protein Vancomycin Trough 05/19/19 05/19/19 05/20/19 04:06 06:00 04:00 WBC RBC 3.40 L Hgb 9.2 L Hct 28.6 L MCV MCH 27 L MCHC RDW 17.6 H Lymph % (Auto) [place] % (Auto) Eos % (Auto) Lymph # [place] # Eos # Seg Neutrophils % Seg Neuts % (Manual) Lymphocytes % (Manual) 11.0 L Monocytes % (Manual) Eosinophils % (Manual) 14.0 H Nucleated RBC % Seg Neutrophils # Seg Neutrophils # Man Lymphocytes # (Manual) 1.1 L Monocytes # (Manual) Eosinophils # (Manual) 1.4 H PT INR APTT POC ABG pH ABG pH 7.315 L POC ABG pCO2 POC ABG pO2 ABG pO2 ABG HCO3 ABG O2 Saturation ABG Base Excess ABG Hemoglobin 6.7 L Oxyhemoglobin 94.1 L Sodium Potassium 5.2 H Chloride Carbon Dioxide 21 L BUN 110 H Creatinine 7.2 H Glucose POC Glucose Uric Acid Calcium 8.3 L Phosphorus Magnesium AST ALT Total Creatine Kinase CK-MB (CK-2) Troponin T NT-Pro-B Natriuret Pep Total Protein Albumin Triglycerides HDL Cholesterol Urine WBC (Auto) Urine Creatinine Urine Total Protein Vancomycin Trough 05/20/19 05/20/19 05/20/19 04:00 05:48 12:00 WBC RBC Hgb Hct MCV MCH MCHC RDW Lymph % (Auto) [place] % (Auto) Eos % (Auto) Lymph # [place] # Eos # Seg Neutrophils % Seg Neuts % (Manual) Lymphocytes % (Manual) Monocytes % (Manual) Eosinophils % (Manual) Nucleated RBC % Seg Neutrophils # Seg Neutrophils # Man Lymphocytes # (Manual) Monocytes # (Manual) Eosinophils # (Manual) PT INR APTT POC ABG pH ABG pH 7.281 L POC ABG pCO2 POC ABG pO2 ABG pO2 78.7 L ABG HCO3 ABG O2 Saturation 94.5 L ABG Base Excess -3.0 L ABG Hemoglobin 9.9 L Oxyhemoglobin 92.5 L Sodium 136 L Potassium 5.7 H Chloride 96.3 L Carbon Dioxide BUN 125 H Creatinine 8.3 H Glucose 106 H POC Glucose Uric Acid Calcium Phosphorus Magnesium AST ALT Total Creatine Kinase CK-MB (CK-2) Troponin T NT-Pro-B Natriuret Pep Total Protein Albumin Triglycerides HDL Cholesterol Urine WBC (Auto) 26.0 H Urine Creatinine Urine Total Protein Vancomycin Trough 05/21/19 05/21/19 05/21/19 04:33 05:20 Unknown WBC RBC 3.38 L Hgb 9.1 L Hct 28.5 L MCV MCH 27 L MCHC RDW 17.4 H Lymph % (Auto) [place] % (Auto) Eos % (Auto) Lymph # [place] # Eos # Seg Neutrophils % Seg Neuts % (Manual) 71.0 H Lymphocytes % (Manual) 1.0 L Monocytes % (Manual) 11.0 H Eosinophils % (Manual) 6.0 H Nucleated RBC % Seg Neutrophils # Seg Neutrophils # Man Lymphocytes # (Manual) 0.1 L Monocytes # (Manual) 1.0 H Eosinophils # (Manual) 0.6 H PT INR APTT POC ABG pH 7.315 L ABG pH POC ABG pCO2 57.8 H POC ABG pO2 68 L ABG pO2 ABG HCO3 ABG O2 Saturation ABG Base Excess ABG Hemoglobin Oxyhemoglobin Sodium Potassium Chloride 96.3 L Carbon Dioxide BUN 102 H Creatinine 7.0 H Glucose 103 H POC Glucose Uric Acid Calcium Phosphorus Magnesium AST ALT Total Creatine Kinase CK-MB (CK-2) Troponin T NT-Pro-B Natriuret Pep Total Protein Albumin Triglycerides HDL Cholesterol Urine WBC (Auto) Urine Creatinine Urine Total Protein Vancomycin Trough 05/22/19 05/22/19 05/22/19 03:54 06:25 06:25 WBC RBC 3.22 L Hgb 8.6 L Hct 27.0 L MCV MCH 27 L MCHC RDW 17.5 H Lymph % (Auto) [place] % (Auto) 16.2 H Eos % (Auto) 10.8 H Lymph # [place] # 1.3 H Eos # 0.9 H Seg Neutrophils % Seg Neuts % (Manual) Lymphocytes % (Manual) 10.0 L Monocytes % (Manual) 13.0 H Eosinophils % (Manual) 8.0 H Nucleated RBC % Seg Neutrophils # Seg Neutrophils # Man Lymphocytes # (Manual) 0.9 L Monocytes # (Manual) 1.1 H Eosinophils # (Manual) 0.7 H PT INR APTT POC ABG pH 7.313 L ABG pH POC ABG pCO2 55.0 H POC ABG pO2 ABG pO2 ABG HCO3 ABG O2 Saturation ABG Base Excess ABG Hemoglobin Oxyhemoglobin Sodium 135 L Potassium Chloride 94.3 L Carbon Dioxide BUN 117 H Creatinine 7.8 H Glucose POC Glucose Uric Acid Calcium 8.2 L Phosphorus Magnesium AST ALT Total Creatine Kinase CK-MB (CK-2) Troponin T NT-Pro-B Natriuret Pep Total Protein Albumin Triglycerides HDL Cholesterol Urine WBC (Auto) Urine Creatinine Urine Total Protein Vancomycin Trough 05/23/19 05/24/19 05/24/19 05:21 05:00 05:00 WBC RBC 3.18 L Hgb 8.5 L Hct 26.7 L MCV MCH 27 L MCHC RDW 17.9 H Lymph % (Auto) [place] % (Auto) Eos % (Auto) Lymph # [place] # Eos # Seg Neutrophils % Seg Neuts % (Manual) Lymphocytes % (Manual) Monocytes % (Manual) Eosinophils % (Manual) Nucleated RBC % Seg Neutrophils # Seg Neutrophils # Man Lymphocytes # (Manual) Monocytes # (Manual) Eosinophils # (Manual) PT INR APTT POC ABG pH ABG pH POC ABG pCO2 49.7 H POC ABG pO2 73 L ABG pO2 ABG HCO3 ABG O2 Saturation ABG Base Excess ABG Hemoglobin Oxyhemoglobin Sodium Potassium Chloride 95.7 L Carbon Dioxide BUN 97 H Creatinine 6.5 H Glucose POC Glucose Uric Acid Calcium 8.0 L Phosphorus Magnesium AST ALT Total Creatine Kinase CK-MB (CK-2) Troponin T NT-Pro-B Natriuret Pep Total Protein Albumin Triglycerides HDL Cholesterol Urine WBC (Auto) Urine Creatinine Urine Total Protein Vancomycin Trough 05/24/19 05/25/19 05/25/19 06:17 04:22 15:45 WBC RBC 2.98 L Hgb 8.1 L Hct 24.9 L MCV MCH 27 L MCHC RDW 17.8 H Lymph % (Auto) [place] % (Auto) Eos % (Auto) Lymph # [place] # Eos # Seg Neutrophils % Seg Neuts % (Manual) Lymphocytes % (Manual) Monocytes % (Manual) Eosinophils % (Manual) Nucleated RBC % Seg Neutrophils # Seg Neutrophils # Man Lymphocytes # (Manual) Monocytes # (Manual) Eosinophils # (Manual) PT INR APTT POC ABG pH 7.330 L 7.313 L ABG pH POC ABG pCO2 52.5 H 51.1 H POC ABG pO2 77 L ABG pO2 ABG HCO3 ABG O2 Saturation ABG Base Excess ABG Hemoglobin Oxyhemoglobin Sodium Potassium Chloride Carbon Dioxide BUN Creatinine Glucose POC Glucose Uric Acid Calcium Phosphorus Magnesium AST ALT Total Creatine Kinase CK-MB (CK-2) Troponin T NT-Pro-B Natriuret Pep Total Protein Albumin Triglycerides HDL Cholesterol Urine WBC (Auto) Urine Creatinine Urine Total Protein Vancomycin Trough 05/25/19 05/26/19 05/26/19 15:45 04:13 05:00 WBC RBC 3.10 L Hgb 8.4 L Hct 26.0 L MCV MCH 27 L MCHC RDW 17.4 H Lymph % (Auto) [place] % (Auto) Eos % (Auto) Lymph # [place] # Eos # Seg Neutrophils % Seg Neuts % (Manual) Lymphocytes % (Manual) Monocytes % (Manual) Eosinophils % (Manual) Nucleated RBC % Seg Neutrophils # Seg Neutrophils # Man Lymphocytes # (Manual) Monocytes # (Manual) Eosinophils # (Manual) PT INR APTT POC ABG pH 7.295 L ABG pH POC ABG pCO2 56.5 H POC ABG pO2 63 L ABG pO2 ABG HCO3 ABG O2 Saturation ABG Base Excess ABG Hemoglobin Oxyhemoglobin Sodium 136 L Potassium Chloride 96.8 L Carbon Dioxide BUN 83 H Creatinine 5.9 H Glucose POC Glucose Uric Acid Calcium 7.6 L Phosphorus Magnesium AST ALT Total Creatine Kinase CK-MB (CK-2) Troponin T NT-Pro-B Natriuret Pep Total Protein Albumin Triglycerides HDL Cholesterol Urine WBC (Auto) Urine Creatinine Urine Total Protein Vancomycin Trough 05/26/19 05/27/19 05/28/19 05:00 04:48 04:47 WBC RBC Hgb Hct MCV MCH MCHC RDW Lymph % (Auto) [place] % (Auto) Eos % (Auto) Lymph # [place] # Eos # Seg Neutrophils % Seg Neuts % (Manual) Lymphocytes % (Manual) Monocytes % (Manual) Eosinophils % (Manual) Nucleated RBC % Seg Neutrophils # Seg Neutrophils # Man Lymphocytes # (Manual) Monocytes # (Manual) Eosinophils # (Manual) PT INR APTT POC ABG pH 7.323 L ABG pH 7.284 L POC ABG pCO2 56.2 H POC ABG pO2 ABG pO2 71.6 L ABG HCO3 ABG O2 Saturation 92.0 L ABG Base Excess ABG Hemoglobin 7.7 L Oxyhemoglobin 89.9 L Sodium 136 L Potassium Chloride 95.3 L Carbon Dioxide BUN 96 H Creatinine 6.5 H Glucose 108 H POC Glucose Uric Acid Calcium 7.6 L Phosphorus Magnesium AST ALT Total Creatine Kinase CK-MB (CK-2) Troponin T NT-Pro-B Natriuret Pep Total Protein Albumin Triglycerides HDL Cholesterol Urine WBC (Auto) Urine Creatinine Urine Total Protein Vancomycin Trough 05/28/19 05/29/19 05/29/19 12:30 12:47 23:44 WBC RBC Hgb Hct MCV MCH MCHC RDW Lymph % (Auto) [place] % (Auto) Eos % (Auto) Lymph # [place] # Eos # Seg Neutrophils % Seg Neuts % (Manual) Lymphocytes % (Manual) Monocytes % (Manual) Eosinophils % (Manual) Nucleated RBC % Seg Neutrophils # Seg Neutrophils # Man Lymphocytes # (Manual) Monocytes # (Manual) Eosinophils # (Manual) PT INR APTT POC ABG pH ABG pH POC ABG pCO2 POC ABG pO2 ABG pO2 ABG HCO3 ABG O2 Saturation ABG Base Excess ABG Hemoglobin Oxyhemoglobin Sodium 135 L Potassium Chloride 95.3 L Carbon Dioxide BUN 82 H Creatinine 6.0 H Glucose POC Glucose 136 H 159 H Uric Acid Calcium 7.5 L Phosphorus Magnesium AST ALT Total Creatine Kinase CK-MB (CK-2) Troponin T NT-Pro-B Natriuret Pep Total Protein Albumin Triglycerides HDL Cholesterol Urine WBC (Auto) Urine Creatinine Urine Total Protein Vancomycin Trough 05/30/19 05/30/19 05/30/19 04:30 05:38 12:00 WBC RBC 3.01 L Hgb 8.2 L Hct 25.3 L MCV MCH 27 L MCHC RDW 17.5 H Lymph % (Auto) [place] % (Auto) Eos % (Auto) Lymph # [place] # Eos # Seg Neutrophils % Seg Neuts % (Manual) 80.0 H Lymphocytes % (Manual) 10.0 L Monocytes % (Manual) Eosinophils % (Manual) Nucleated RBC % Seg Neutrophils # Seg Neutrophils # Man 8.0 H Lymphocytes # (Manual) 1.0 L Monocytes # (Manual) Eosinophils # (Manual) PT INR APTT POC ABG pH ABG pH POC ABG pCO2 POC ABG pO2 73 L ABG pO2 ABG HCO3 ABG O2 Saturation ABG Base Excess ABG Hemoglobin Oxyhemoglobin Sodium Potassium Chloride Carbon Dioxide BUN Creatinine Glucose POC Glucose 166 H Uric Acid Calcium Phosphorus Magnesium AST ALT Total Creatine Kinase CK-MB (CK-2) Troponin T NT-Pro-B Natriuret Pep Total Protein Albumin Triglycerides HDL Cholesterol Urine WBC (Auto) Urine Creatinine Urine Total Protein Vancomycin Trough 05/30/19 05/31/19 05/31/19 23:45 04:07 13:04 WBC 14.3 H RBC 2.88 L Hgb 7.7 L Hct 23.9 L MCV 83 L MCH 27 L MCHC RDW 17.8 H Lymph % (Auto) [place] % (Auto) Eos % (Auto) Lymph # [place] # Eos # Seg Neutrophils % Seg Neuts % (Manual) 83.0 H Lymphocytes % (Manual) 11.0 L Monocytes % (Manual) Eosinophils % (Manual) Nucleated RBC % Seg Neutrophils # Seg Neutrophils # Man 11.9 H Lymphocytes # (Manual) Monocytes # (Manual) 0.9 H Eosinophils # (Manual) PT INR APTT POC ABG pH ABG pH POC ABG pCO2 47.4 H POC ABG pO2 ABG pO2 ABG HCO3 ABG O2 Saturation ABG Base Excess ABG Hemoglobin Oxyhemoglobin Sodium Potassium Chloride Carbon Dioxide BUN Creatinine Glucose POC Glucose 209 H Uric Acid Calcium Phosphorus Magnesium AST ALT Total Creatine Kinase CK-MB (CK-2) Troponin T NT-Pro-B Natriuret Pep Total Protein Albumin Triglycerides HDL Cholesterol Urine WBC (Auto) Urine Creatinine Urine Total Protein Vancomycin Trough 05/31/19 05/31/19 06/01/19 13:04 16:42 00:15 WBC RBC Hgb Hct MCV MCH MCHC RDW Lymph % (Auto) [place] % (Auto) Eos % (Auto) Lymph # [place] # Eos # Seg Neutrophils % Seg Neuts % (Manual) Lymphocytes % (Manual) Monocytes % (Manual) Eosinophils % (Manual) Nucleated RBC % Seg Neutrophils # Seg Neutrophils # Man Lymphocytes # (Manual) Monocytes # (Manual) Eosinophils # (Manual) PT INR APTT POC ABG pH ABG pH POC ABG pCO2 POC ABG pO2 ABG pO2 ABG HCO3 ABG O2 Saturation ABG Base Excess ABG Hemoglobin Oxyhemoglobin Sodium 129 L Potassium Chloride 88.6 L Carbon Dioxide 19 L BUN 117 H Creatinine 6.7 H Glucose 205 H POC Glucose 228 H 223 H Uric Acid Calcium 7.4 L Phosphorus 7.40 H Magnesium AST 58 H ALT 149 H Total Creatine Kinase CK-MB (CK-2) Troponin T NT-Pro-B Natriuret Pep Total Protein 6.0 L Albumin 2.5 L Triglycerides HDL Cholesterol Urine WBC (Auto) Urine Creatinine Urine Total Protein Vancomycin Trough 06/01/19 06/01/19 06/01/19 04:33 05:27 12:31 WBC RBC Hgb Hct MCV MCH MCHC RDW Lymph % (Auto) [place] % (Auto) Eos % (Auto) Lymph # [place] # Eos # Seg Neutrophils % Seg Neuts % (Manual) Lymphocytes % (Manual) Monocytes % (Manual) Eosinophils % (Manual) Nucleated RBC % Seg Neutrophils # Seg Neutrophils # Man Lymphocytes # (Manual) Monocytes # (Manual) Eosinophils # (Manual) PT INR APTT POC ABG pH ABG pH POC ABG pCO2 POC ABG pO2 ABG pO2 56.9 L ABG HCO3 ABG O2 Saturation 85.9 L ABG Base Excess ABG Hemoglobin 8.1 L Oxyhemoglobin 83.6 L Sodium Potassium Chloride Carbon Dioxide BUN Creatinine Glucose POC Glucose 183 H 217 H Uric Acid Calcium Phosphorus Magnesium AST ALT Total Creatine Kinase CK-MB (CK-2) Troponin T NT-Pro-B Natriuret Pep Total Protein Albumin Triglycerides HDL Cholesterol Urine WBC (Auto) Urine Creatinine Urine Total Protein Vancomycin Trough 06/01/19 06/02/19 06/02/19 18:20 00:00 05:33 WBC RBC Hgb Hct MCV MCH MCHC RDW Lymph % (Auto) [place] % (Auto) Eos % (Auto) Lymph # [place] # Eos # Seg Neutrophils % Seg Neuts % (Manual) Lymphocytes % (Manual) Monocytes % (Manual) Eosinophils % (Manual) Nucleated RBC % Seg Neutrophils # Seg Neutrophils # Man Lymphocytes # (Manual) Monocytes # (Manual) Eosinophils # (Manual) PT INR APTT POC ABG pH ABG pH POC ABG pCO2 POC ABG pO2 ABG pO2 ABG HCO3 ABG O2 Saturation ABG Base Excess ABG Hemoglobin Oxyhemoglobin Sodium Potassium Chloride Carbon Dioxide BUN Creatinine Glucose POC Glucose 265 H 279 H 259 H Uric Acid Calcium Phosphorus Magnesium AST ALT Total Creatine Kinase CK-MB (CK-2) Troponin T NT-Pro-B Natriuret Pep Total Protein Albumin Triglycerides HDL Cholesterol Urine WBC (Auto) Urine Creatinine Urine Total Protein Vancomycin Trough 06/02/19 06/02/19 06/02/19 11:06 11:06 11:42 WBC 13.1 H RBC 2.92 L Hgb 7.9 L Hct 24.4 L MCV MCH 27 L MCHC RDW 17.4 H Lymph % (Auto) [place] % (Auto) Eos % (Auto) Lymph # [place] # Eos # Seg Neutrophils % Seg Neuts % (Manual) 78.0 H Lymphocytes % (Manual) 12.0 L Monocytes % (Manual) 10.0 H Eosinophils % (Manual) Nucleated RBC % Seg Neutrophils # Seg Neutrophils # Man 10.2 H Lymphocytes # (Manual) Monocytes # (Manual) 1.3 H Eosinophils # (Manual) PT INR APTT POC ABG pH ABG pH POC ABG pCO2 POC ABG pO2 ABG pO2 ABG HCO3 ABG O2 Saturation ABG Base Excess ABG Hemoglobin Oxyhemoglobin Sodium 135 L Potassium Chloride 94.7 L Carbon Dioxide 21 L BUN 107 H Creatinine 4.5 H Glucose 286 H POC Glucose 263 H Uric Acid Calcium 7.9 L Phosphorus 6.30 H Magnesium AST ALT 104 H Total Creatine Kinase CK-MB (CK-2) Troponin T NT-Pro-B Natriuret Pep Total Protein 6.0 L Albumin 2.7 L Triglycerides HDL Cholesterol Urine WBC (Auto) Urine Creatinine Urine Total Protein Vancomycin Trough 06/02/19 06/02/19 06/03/19 18:17 23:55 05:30 WBC RBC Hgb Hct MCV MCH MCHC RDW Lymph % (Auto) [place] % (Auto) Eos % (Auto) Lymph # [place] # Eos # Seg Neutrophils % Seg Neuts % (Manual) Lymphocytes % (Manual) Monocytes % (Manual) Eosinophils % (Manual) Nucleated RBC % Seg Neutrophils # Seg Neutrophils # Man Lymphocytes # (Manual) Monocytes # (Manual) Eosinophils # (Manual) PT INR APTT POC ABG pH ABG pH POC ABG pCO2 POC ABG pO2 ABG pO2 ABG HCO3 ABG O2 Saturation ABG Base Excess ABG Hemoglobin Oxyhemoglobin Sodium Potassium Chloride 95.1 L Carbon Dioxide 21 L BUN 119 H Creatinine 4.1 H Glucose 330 H POC Glucose 276 H 244 H Uric Acid Calcium 8.1 L Phosphorus Magnesium AST ALT 98 H Total Creatine Kinase CK-MB (CK-2) Troponin T NT-Pro-B Natriuret Pep Total Protein 5.8 L Albumin 2.8 L Triglycerides HDL Cholesterol Urine WBC (Auto) Urine Creatinine Urine Total Protein Vancomycin Trough 06/03/19 06/03/19 06/03/19 05:30 06:04 09:42 WBC 12.8 H RBC 3.01 L Hgb 8.2 L Hct 25.4 L MCV MCH 27 L MCHC RDW 17.5 H Lymph % (Auto) [place] % (Auto) Eos % (Auto) Lymph # [place] # Eos # Seg Neutrophils % Seg Neuts % (Manual) 78.0 H Lymphocytes % (Manual) 10.0 L Monocytes % (Manual) 12.0 H Eosinophils % (Manual) Nucleated RBC % Seg Neutrophils # Seg Neutrophils # Man 10.0 H Lymphocytes # (Manual) Monocytes # (Manual) 1.5 H Eosinophils # (Manual) PT INR APTT POC ABG pH ABG pH POC ABG pCO2 POC ABG pO2 ABG pO2 ABG HCO3 ABG O2 Saturation ABG Base Excess ABG Hemoglobin Oxyhemoglobin Sodium Potassium Chloride Carbon Dioxide BUN 106 H Creatinine Glucose POC Glucose 254 H Uric Acid Calcium Phosphorus Magnesium AST ALT Total Creatine Kinase CK-MB (CK-2) Troponin T NT-Pro-B Natriuret Pep Total Protein Albumin Triglycerides HDL Cholesterol Urine WBC (Auto) Urine Creatinine Urine Total Protein Vancomycin Trough 06/03/19 06/03/19 06/03/19 12:52 17:25 23:37 WBC RBC Hgb Hct MCV MCH MCHC RDW Lymph % (Auto) [place] % (Auto) Eos % (Auto) Lymph # [place] # Eos # Seg Neutrophils % Seg Neuts % (Manual) Lymphocytes % (Manual) Monocytes % (Manual) Eosinophils % (Manual) Nucleated RBC % Seg Neutrophils # Seg Neutrophils # Man Lymphocytes # (Manual) Monocytes # (Manual) Eosinophils # (Manual) PT INR APTT POC ABG pH ABG pH POC ABG pCO2 POC ABG pO2 ABG pO2 ABG HCO3 ABG O2 Saturation ABG Base Excess ABG Hemoglobin Oxyhemoglobin Sodium Potassium Chloride Carbon Dioxide BUN Creatinine Glucose POC Glucose 274 H 285 H 310 H Uric Acid Calcium Phosphorus Magnesium AST ALT Total Creatine Kinase CK-MB (CK-2) Troponin T NT-Pro-B Natriuret Pep Total Protein Albumin Triglycerides HDL Cholesterol Urine WBC (Auto) Urine Creatinine Urine Total Protein Vancomycin Trough 06/04/19 06/04/19 04:57 05:03 WBC RBC Hgb Hct MCV MCH MCHC RDW Lymph % (Auto) [place] % (Auto) Eos % (Auto) Lymph # [place] # Eos # Seg Neutrophils % Seg Neuts % (Manual) Lymphocytes % (Manual) Monocytes % (Manual) Eosinophils % (Manual) Nucleated RBC % Seg Neutrophils # Seg Neutrophils # Man Lymphocytes # (Manual) Monocytes # (Manual) Eosinophils # (Manual) PT INR APTT POC ABG pH 7.488 H ABG pH POC ABG pCO2 POC ABG pO2 ABG pO2 ABG HCO3 ABG O2 Saturation ABG Base Excess ABG Hemoglobin Oxyhemoglobin Sodium Potassium Chloride Carbon Dioxide BUN Creatinine Glucose POC Glucose 275 H Uric Acid Calcium Phosphorus Magnesium AST ALT Total Creatine Kinase CK-MB (CK-2) Troponin T NT-Pro-B Natriuret Pep Total Protein Albumin Triglycerides HDL Cholesterol Urine WBC (Auto) Urine Creatinine Urine Total Protein Vancomycin Trough
[2019-06-04] MEDS ORDERED: INSULIN GLARGINE 100 UNITS/ML SUB-Q ONE (12:00)
--- NOTE | 2019-06-04 12:05 | Progress Note ---
Subjective Principal diagnosis: HF; acute hypoxemic resp failure, SIRS, CARLA Interval history: Patient was seen today for follow-up on multiple renal related issues, patient is critically ill in the ICU intubated has been currently dialysis dependent, patient remains dialysis dependent but has been tolerating well Blood pressure is currently much better controlled bUN remains elevated Vitals intake output medications were reviewed Past medical history: Reviewed Family, social history: Reviewed Allergies: Reviewed Physical examination General: No acute distress Vitals: Reviewed HEENT: Oral mucosa moist no icterus Neck: Supple no thyromegaly nodular mass or JVD Chest: Clear to auscultation anteriorly Heart: Regular rate and rhythm S1-S2 heard no S3-S4 Abdomen: Soft nontender no suprapubic masses no organomegaly Extremity: Dry skin less than 1+ edema Psych: No evidence of any agitation and aggression noted Derm: No petechial rash Assessment and plan: Acute kidney injury: Multifactorial in etiology most likely due to vancomycin toxicity/ as well as likely acute tubular necrosis currently on Friday schedule Renal standpoint today patient's blood pressure is well controlled 134/63 his last hemoglobin was 8.2 from yesterday platelet count is 342,000 which is normal blood gases appear to be satisfactory, He will need follow-up labs creatinine has been staying down at 4.1B UN however is 106, rule out on other causes for elevated BUN including upper GI bleed Patient has been getting working nearly 4-1/2 hours of dialysis We will check post dialysis B UN after every dialysis treatment Multi-organ failure: Mortality risk is very high Hyperphosphatemia: We will follow-up Overall prognosis remains guarded to poor due to multiple comorbidities including the SIRS, shock, respiratory failure acute renal failure encephalopathy seizure activity, cardiac arrest, obesity, congestive heart failure, malignant hypertension We'll continue to follow and make recommendation from renal standpoint Objective - Vital Signs Vital signs: Vital Signs - 12hr 06/04/19 06/04/19 06/04/19 00:20 01:00 02:00 Temperature Pulse Rate 89 89 86 Pulse Rate [ From Monitor] Respiratory 36 H 36 H Rate Blood Pressure 166/86 159/87 150/87 O2 Sat by Pulse 95 89 90 Oximetry 06/04/19 06/04/19 06/04/19 03:00 03:37 04:00 Temperature 98.9 F Pulse Rate 80 84 Pulse Rate [ 88 From Monitor] Respiratory 31 H 32 H Rate Blood Pressure 165/88 162/88 O2 Sat by Pulse 90 89 Oximetry 06/04/19 06/04/19 06/04/19 04:05 04:28 05:01 Temperature Pulse Rate 87 82 98 H Pulse Rate [ From Monitor] Respiratory 35 H Rate Blood Pressure 164/86 162/88 139/62 O2 Sat by Pulse 96 92 Oximetry 06/04/19 06/04/19 06/04/19 05:19 06:00 07:00 Temperature Pulse Rate 94 H 89 92 H Pulse Rate [ From Monitor] Respiratory 29 H 34 H Rate Blood Pressure 139/62 120/49 120/51 O2 Sat by Pulse 94 Oximetry 06/04/19 06/04/19 06/04/19 08:00 09:00 09:10 Temperature 99.2 F Pulse Rate 88 91 H 86 Pulse Rate [ 87 From Monitor] Respiratory 33 H 33 H Rate Blood Pressure 112/48 116/51 134/63 O2 Sat by Pulse 95 95 96 Oximetry 06/04/19 06/04/19 06/04/19 09:25 09:35 10:00 Temperature Pulse Rate 86 84 90 Pulse Rate [ From Monitor] Respiratory 34 H Rate Blood Pressure 113/59 O2 Sat by Pulse 96 95 93 Oximetry 06/04/19 06/04/19 11:00 11:21 Temperature Pulse Rate 86 86 Pulse Rate [ From Monitor] Respiratory 19 Rate Blood Pressure 134/63 134/63 O2 Sat by Pulse 93 96 Oximetry - Lab 06/03/19 05:30 06/03/19 09:42 Most recent lab results ABG pH 7.375 pH Units (7.350-7.450) 06/01/19 04:33 ABG pCO2 42.7 mm Hg 06/01/19 04:33 ABG pO2 56.9 mm Hg (80.0-90.0) L 06/01/19 04:33 ABG HCO3 24.4 mmol/L (20.0-26.0) 06/01/19 04:33 ABG O2 Saturation 85.9 % (95.0-99.0) L 06/01/19 04:33 Calcium 8.1 mg/dL (8.4-10.2) L 06/03/19 05:30 Phosphorus 6.30 mg/dL (2.5-4.5) H 06/02/19 11:06 Magnesium 1.90 mg/dL (1.7-2.3) 05/31/19 13:04 Urine Creatinine 292.8 mg/dL (0.1-20.0) H 05/07/19 22:40 Urine Sodium 11 mmol/L 05/07/19 22:40 Urine Total Protein 269 mg/dL (5-11.8) H 05/07/19 22:40 Medications & Allergies - Medications Allergies/Adverse Reactions: Allergies No Known Allergies Allergy (Verified 05/01/19 20:27) Home Medications: Home Medications Medication Instructions Recorded Confirmed Last Taken Type No Known Home Medications [No 05/03/19 05/03/19 Unknown History Reported Home Medications] Active Medications: Generic Name Dose Route Start Last Admin Trade Name Freq PRN Reason Stop Dose Admin Albumin Human 25 gm 05/19/19 10:47 Alburx 25% (Albumin) IV ARIANE PRN Hypotension Alteplase, Recombinant 2 mg 05/25/19 09:30 05/28/19 21:15 Cathflo IV 2 mg ARIANE PRN Administration LINE FLUSH Lipase/Protease/Amylase 1 each 05/14/19 15:[address] 10,500 Unit FEEDTUBE PRN PRN For Clogged Feeding Tube Dextrose 50 gm 05/01/19 20:24 D50w (25gm) Vial IV Q30MIN PRN Hypoglycemia Protocol Enoxaparin Sodium 30 mg 05/16/19 10:00 06/04/19 09:47 Enoxaparin SUB-Q 30 mg QDAY VICKEY Administration Epoetin Hugo 10,000 unit 05/19/19 10:47 06/03/19 11:49 Procrit IV 10,000 unit ARIANE PRN Administration hemodialysis Famotidine 20 mg 05/16/19 10:00 06/04/19 09:47 Pepcid PO 20 mg DAILY VICKEY Administration Fentanyl 50 mcg 06/03/19 10:03 06/03/19 18:46 Sublimaze IV 50 mcg Q2HR PRN Administration Pain, Moderate (4-6) Hydralazine HCl 20 mg 05/13/19 08:09 06/04/19 04:28 Apresoline IV 20 mg Q4HR PRN Administration SBP >/=160 Propofol 1,000 mg in 100 mls @ 7.011 mls/hr 05/03/19 04:00 06/04/19 11:30 Diprivan 10 Mg/Ml IV 0 mcg/kg/min TITR VICKEY 0 mls/hr Titration Protocol 5 MCG/KG/MIN Sodium Chloride 100 mls @ 999 mls/hr 05/19/19 10:47 05/20/19 08:14 Nacl 0.9% IV 999 mls/hr ARIANE PRN Administration Hypotension Insulin Glargine 20 units 06/04/19 22:00 Lantus SUB-Q QHS VICKEY Insulin Human Lispro 0 unit 06/01/19 14:00 06/04/19 05:20 Humalog SUB-Q 6 unit Q6HR VICKEY Administration Protocol Labetalol HCl 100 mg 05/14/19 14:00 06/04/19 05:19 Labetalol PO 100 mg Q8HR VICKEY Administration Levetiracetam 750 mg 05/13/19 10:00 06/04/19 09:47 Keppra PO 750 mg BID VICKEY Administration Lorazepam 2 mg 05/06/19 06:22 05/10/19 16:17 Ativan IV 2 mg Q4H PRN Administration Seizures/AGITATION Methylprednisolone Sodium Succinate 125 mg 05/29/19 14:00 06/04/19 05:19 Solu-Medrol IV 125 mg Q8HR VICKEY Administration Scopolamine 1 each 05/20/19 12:00 05/20/19 12:52 Transderm-Scop TD 1 each Q72HR VICKEY Administration Simple Syrup 15 ml 05/14/19 15:01 Simple Syrup FEEDTUBE PRN PRN Hypoglycemia Simple Syrup 30 ml 05/14/19 15:01 Simple Syrup FEEDTUBE PRN PRN Hypoglycemia Sodium Bicarbonate 325 mg 05/14/19 15:01 Sodium Bicarbonate FEEDTUBE PRN PRN For Clogged Feeding Tube
--- NOTE | 2019-06-04 19:33 | Progress Note ---
Assessment and Plan - Patient Problems (1) Acute on chronic respiratory failure Current Visit: Yes Status: Acute Qualifiers: Respiratory failure complication: hypoxia Qualified Code(s): J96.21 - Acute and chronic respiratory failure with hypoxia Plan to address problem: Pulmonary team consulted, wean vent as tolerated, daily spontaneous breathing trial, sedation holiday, ABG in a.m., Pt continues to be vent dependent and unable to be weaned. continue current care. The high probability of a clinically significant, sudden or life threatening deterioration of the [pulmonary, renal, neuro, endocrine] system(s) required my full and direct attention, intervention and personal management. The aggregate critical care time was [65] minutes. This time is in addition to time spent performing reported procedures but includes the following: [x] Data Review and interpretation [x] Patient assessment and monitoring of vital signs [x] Documentation [x] Medication orders and management (2) Obesity hypoventilation syndrome Current Visit: Yes Status: Acute Plan to address problem: Supplemental oxygen, nebulizer therapy, pulse oximetry, wean vent as tolerated. (3) Morbid obesity Current Visit: Yes Status: Chronic Plan to address problem: Supportive care, poor prognosis. Outpatient bariatric surgery follow-up at discharge. (4) Cardiac arrest Current Visit: Yes Status: Acute Plan to address problem: Supportive care. Cardiology consulted, continue supportive care. (5) Anoxic brain injury Current Visit: Yes Status: Acute Plan to address problem: Neuro check, supportive care. Neurology consulted. (6) Acute kidney injury Current Visit: Yes Status: Acute Plan to address problem: Nephrology consulted, monitor urine output every shift, daily weight, serial BMP to monitor serum creatinine. Avoid nephrotoxic agents. (7) DVT prophylaxis Current Visit: Yes Status: Acute Plan to address problem: SCD to bilateral lower extremity, prophylactic Lovenox. History Interval history: 34-year-old male with acute hypoxemic and hypercapnic respiratory failure currently on ventilatory support status post cardiac arrest, and anoxic encephalopathy, obesity hypoventilation, acute kidney injury, sepsis. Patient is currently intubated and on ventilatory support and currently undergoing ICU care. Patient lab and imaging studies reviewed. Patient currently unable to be weaned from vent support. Patient has poor prognosis. No reported nursing events. Hospitalist Physical - Constitutional Vitals: Temp Pulse Resp BP Pulse Ox 100.2 F H 86 32 H 167/80 89 06/04/19 16:00 06/04/19 19:00 06/04/19 19:00 06/04/19 19:00 06/04/19 19:00 General appearance: Present: mild distress, obese - EENT Eyes: Present: miosis - Neck Neck: Present: supple - Respiratory Respiratory effort: labored, accessory muscle use Respiratory: bilateral: diminished, rhonchi - Cardiovascular Rhythm: other (tachycardia) Heart Sounds: Present: S1 & S2 - Extremities Extremities: no ischemia Extremity abnormal: edema Peripheral Pulses: within normal limits - Abdominal General gastrointestinal: soft, non-tender, non-distended - Integumentary Integumentary: Present: clear, dry, clammy - Psychiatric Psychiatric: no appropriate mood/affect, no intact judgment & insight, no memory intact, no depressed - Neurologic Neurologic: no moves all extremities, no gait normal Results - Labs CBC & Chem 7: 06/03/19 05:30 06/03/19 09:42 Labs: Laboratory Last Values WBC 12.8 K/mm3 (4.5-11.0) H 06/03/19 05:30 RBC 3.01 M/mm3 (3.65-5.03) L 06/03/19 05:30 Hgb 8.2 gm/dl (11.8-15.2) L 06/03/19 05:30 Hct 25.4 % (35.5-45.6) L 06/03/19 05:30 MCV 85 fl (84-94) 06/03/19 05:30 MCH 27 pg (28-32) L 06/03/19 05:30 MCHC 32 % (32-34) 06/03/19 05:30 RDW 17.5 % (13.2-15.2) H 06/03/19 05:30 Plt Count 342 K/mm3 (140-440) 06/03/19 05:30 Lymph % (Auto) 7.9 % (13.4-35.0) L 05/18/19 01:50 [place] % (Auto) 16.2 % (0.0-7.3) H 05/22/19 06:25 Eos % (Auto) 10.8 % (0.0-4.3) H 05/22/19 06:25 Baso % (Auto) 0.2 % (0.0-1.8) 05/18/19 01:50 Lymph # 0.7 K/mm3 (1.2-5.4) L 05/18/19 01:50 [place] # 1.3 K/mm3 (0.0-0.8) H 05/22/19 06:25 Eos # 0.9 K/mm3 (0.0-0.4) H 05/22/19 06:25 Baso # 0.0 K/mm3 (0.0-0.1) 05/22/19 06:25 Add Manual Diff Complete 06/03/19 05:30 Total Counted 100 06/03/19 05:30 Seg Neutrophils % 65.5 % (40.0-70.0) 05/22/19 06:25 Seg Neuts % (Manual) 78.0 % (40.0-70.0) H 06/03/19 05:30 Band Neutrophils % 0 % 06/03/19 05:30 Lymphocytes % (Manual) 10.0 % (13.4-35.0) L 06/03/19 05:30 Reactive Lymphs % (Man) 0 % 06/03/19 05:30 Monocytes % (Manual) 12.0 % (0.0-7.3) H 06/03/19 05:30 Eosinophils % (Manual) 0 % (0.0-4.3) 06/03/19 05:30 Basophils % (Manual) 0 % (0.0-1.8) 06/03/19 05:30 Metamyelocytes % 0 % 06/03/19 05:30 Myelocytes % 0 % 06/03/19 05:30 Promyelocytes % 0 % 06/03/19 05:30 Blast Cells % 0 % 06/03/19 05:30 Nucleated RBC % Not Reportable 06/03/19 05:30 Seg Neutrophils # 5.3 K/mm3 (1.8-7.7) 05/22/19 06:25 Seg Neutrophils # Man 10.0 K/mm3 (1.8-7.7) H 06/03/19 05:30 Band Neutrophils # 0.0 K/mm3 06/03/19 05:30 Lymphocytes # (Manual) 1.3 K/mm3 (1.2-5.4) 06/03/19 05:30 Abs React Lymphs (Man) 0.0 K/mm3 06/03/19 05:30 Monocytes # (Manual) 1.5 K/mm3 (0.0-0.8) H 06/03/19 05:30 Eosinophils # (Manual) 0.0 K/mm3 (0.0-0.4) 06/03/19 05:30 Basophils # (Manual) 0.0 K/mm3 (0.0-0.1) 06/03/19 05:30 Metamyelocytes # 0.0 K/mm3 06/03/19 05:30 Myelocytes # 0.0 K/mm3 06/03/19 05:30 Promyelocytes # 0.0 K/mm3 06/03/19 05:30 Blast Cells # 0.0 K/mm3 06/03/19 05:30 WBC Morphology Not Reportable 06/03/19 05:30 Hypersegmented Neuts Not Reportable 06/03/19 05:30 Hyposegmented Neuts Not Reportable 06/03/19 05:30 Hypogranular Neuts Not Reportable 06/03/19 05:30 Smudge Cells Not Reportable 06/03/19 05:30 Toxic Granulation Not Reportable 06/03/19 05:30 Toxic Vacuolation Not Reportable 06/03/19 05:30 Dohle Bodies Not Reportable 06/03/19 05:30 Pelger-Huet Anomaly Not Reportable 06/03/19 05:30 Renea Rods Not Reportable 06/03/19 05:30 Platelet Estimate Consistent w auto 06/03/19 05:30 Clumped Platelets Not Reportable 06/03/19 05:30 Plt Clumps, EDTA Not Reportable 06/03/19 05:30 Large Platelets Not Reportable 06/03/19 05:30 Giant Platelets Not Reportable 06/03/19 05:30 Platelet Satelliting Not Reportable 06/03/19 05:30 Plt Morphology Comment Not Reportable 06/03/19 05:30 RBC Morphology Not Reportable 06/03/19 05:30 Dimorphic RBCs Not Reportable 06/03/19 05:30 Polychromasia Not Reportable 06/03/19 05:30 Hypochromasia Not Reportable 06/03/19 05:30 Poikilocytosis Not Reportable 06/03/19 05:30 Anisocytosis Not Reportable 06/03/19 05:30 Microcytosis Not Reportable 06/03/19 05:30 Macrocytosis Not Reportable 06/03/19 05:30 Spherocytes Few 06/03/19 05:30 Pappenheimer Bodies Not Reportable 06/03/19 05:30 Sickle Cells Not Reportable 06/03/19 05:30 Target Cells Not Reportable 06/03/19 05:30 Tear Drop Cells Not Reportable 06/03/19 05:30 Ovalocytes Not Reportable 06/03/19 05:30 Stomatocytes Few 06/03/19 05:30 Helmet Cells Not Reportable 06/03/19 05:30 Segov[place]-Ector Bodies Not Reportable 06/03/19 05:30 [place] Rings Not Reportable 06/03/19 05:30 Hardaway Cells Not Reportable 06/03/19 05:30 Bite Cells Not Reportable 06/03/19 05:30 Crenated Cell Not Reportable 06/03/19 05:30 Elliptocytes Not Reportable 06/03/19 05:30 Acanthocytes (Spur) Not Reportable 06/03/19 05:30 Rouleaux Not Reportable 06/03/19 05:30 Hemoglobin C Crystals Not Reportable 06/03/19 05:30 Schistocytes Few 06/03/19 05:30 Malaria parasites Not Reportable 06/03/19 05:30 Syed Bodies Not Reportable 06/03/19 05:30 Hem Pathologist Commnt No 06/03/19 05:30 PT 15.4 Sec. (12.2-14.9) H 05/01/19 Unknown INR 1.23 (0.87-1.13) H 05/01/19 Unknown APTT 22.7 Sec. (24.2-36.6) L 05/01/19 Unknown POC ABG pH 7.488 (7.35-7.45) H 06/04/19 04:57 ABG pH 7.375 pH Units (7.350-7.450) 06/01/19 04:33 POC ABG pCO2 38.9 (35-45) 06/04/19 04:57 ABG pCO2 42.7 mm Hg 06/01/19 04:33 POC ABG pO2 81 (80-105) 06/04/19 04:57 ABG pO2 56.9 mm Hg (80.0-90.0) L 06/01/19 04:33 POC ABG HCO3 29.5 (22-26 mml/L) 06/04/19 04:57 ABG HCO3 24.4 mmol/L (20.0-26.0) 06/01/19 04:33 POC ABG Total CO2 31 (23-27mmol/L) 06/04/19 04:57 POC ABG O2 Sat 97 06/04/19 04:57 ABG O2 Saturation 85.9 % (95.0-99.0) L 06/01/19 04:33 ABG O2 Content 9.6 (0.0-44) 06/01/19 04:33 POC ABG Base Excess 6 ((-2) - (+3)mmol/L) 06/04/19 04:57 ABG Base Excess -0.7 mmol/L (-2.0-3.0) 06/01/19 04:33 ABG Hemoglobin 8.1 gm/dl (14.0-18.0) L 06/01/19 04:33 ABG Carboxyhemoglobin 2.1 % (0.0-5.0) 06/01/19 04:33 ABG Methemoglobin 0.5 % (0.0-1.5) 06/01/19 04:33 Oxyhemoglobin 83.6 % (95.0-99.0) L 06/01/19 04:33 FiO2 30 % 06/04/19 04:57 Sodium 137 mmol/L (137-145) 06/03/19 05:30 Potassium 4.8 mmol/L (3.6-5.0) 06/03/19 05:30 Chloride 95.1 mmol/L (98-107) L 06/03/19 05:30 Carbon Dioxide 21 mmol/L (22-30) L 06/03/19 05:30 Anion Gap 26 mmol/L 06/03/19 05:30 BUN 106 mg/dL (9-20) H 06/03/19 09:42 Creatinine 4.1 mg/dL (0.8-1.5) H 06/03/19 05:30 Estimated GFR 20 ml/min 06/03/19 05:30 BUN/Creatinine Ratio 29 % 06/03/19 05:30 Glucose 330 mg/dL (75-100) H 06/03/19 05:30 POC Glucose 267 (70-105) H 06/04/19 18:32 Osmolality 327 Mosm/kg 05/07/19 13:45 Uric Acid 18.0 mg/dL (3.5-7.6) H 05/07/19 13:45 Calcium 8.1 mg/dL (8.4-10.2) L 06/03/19 05:30 Phosphorus 6.30 mg/dL (2.5-4.5) H 06/02/19 11:06 Magnesium 1.90 mg/dL (1.7-2.3) 05/31/19 13:04 Total Bilirubin 0.30 mg/dL (0.1-1.2) 06/03/19 05:30 AST 30 units/L (5-40) 06/03/19 05:30 ALT 98 units/L (7-56) H 06/03/19 05:30 Alkaline Phosphatase 90 units/L (35-129) 06/03/19 05:30 Total Creatine Kinase 131 units/L (55-170) 05/02/19 04:41 CK-MB (CK-2) 5.2 ng/mL (0.0-4.0) H 05/02/19 04:41 CK-MB (CK-2) Rel Index 3.9 (0-4) 05/02/19 04:41 Troponin T 0.067 ng/mL (0.00-0.029) H D 05/02/19 04:41 NT-Pro-B Natriuret Pep 6831 pg/mL (0-450) H 05/01/19 Unknown Total Protein 5.8 g/dL (6.3-8.2) L 06/03/19 05:30 Albumin 2.8 g/dL (3.9-5) L 06/03/19 05:30 Albumin/Globulin Ratio 0.9 % 06/03/19 05:30 Triglycerides 173 mg/dL (2-149) H 05/17/19 Unknown Cholesterol 173 mg/dL (50-199) 05/02/19 00:06 LDL Cholesterol Direct 126 mg/dL (50-130) 05/02/19 00:06 HDL Cholesterol 18 mg/dL (40-59) L 05/02/19 00:06 Cholesterol/HDL Ratio 9.61 % 05/02/19 00:06 Procalcitonin 0.54 ng/mL (<0.15) 05/03/19 11:52 Urine Color Yellow (Yellow) 05/20/19 12:00 Urine Turbidity Cloudy (Clear) 05/20/19 12:00 Urine pH 5.0 (5.0-7.0) 05/20/19 12:00 Ur Specific [place] [employer] 1.015 (1.003-1.030) 05/20/19 12:00 Urine Protein 30 mg/dl mg/dL (Negative) 05/20/19 12:00 Urine Glucose (UA) Neg mg/dL (Negative) 05/20/19 12:00 Urine Ketones Neg mg/dL (Negative) 05/20/19 12:00 Urine Blood Lg (Negative) 05/20/19 12:00 Urine Nitrite Neg (Negative) 05/20/19 12:00 Urine Bilirubin Neg (Negative) 05/20/19 12:00 Urine Urobilinogen < 2.0 mg/dL (<2.0) 05/20/19 12:00 Ur Leukocyte Esterase Mod (Negative) 05/20/19 12:00 Urine WBC (Auto) 26.0 /HPF (0.0-6.0) H 05/20/19 12:00 Urine RBC (Auto) 83.0 /HPF (0.0-6.0) 05/20/19 12:00 Urine Bacteria (Auto) 1+ /HPF (Negative) 05/20/19 12:00 Uric Acid Crystals 3+ 05/03/19 10:55 Urine Mucus Few /HPF 05/20/19 12:00 Urine Yeast (Budding) 3+ /HPF 05/20/19 12:00 Urine Creatinine 292.8 mg/dL (0.1-20.0) H 05/07/19 22:40 Urine Sodium 11 mmol/L 05/07/19 22:40 Urine Total Protein 269 mg/dL (5-11.8) H 05/07/19 22:40 Vancomycin Trough 20.5 ug/mL (5.0-20.0) H 05/15/19 09:00 Random Vancomycin 11.5 ug/mL (0-40.0) 05/27/19 06:00 AMNA Screen Negative (Negative) 05/07/19 13:45 Hepatitis A IgM Ab Non-reactive (NonReactive) 05/07/19 13:45 Hep Bs Antigen Non-reactive (Negative) 05/07/19 13:45 Hep B Core IgM Ab Non-reactive (NonReactive) 05/07/19 13:45 Hepatitis C Antibody Non-reactive (NonReactive) 05/07/19 13:45 Active Medications - Current Medications Current Medications: Generic Name Dose Route Start Last Admin Trade Name Freq PRN Reason Stop Dose Admin Albumin Human 25 gm 05/19/19 10:47 Alburx 25% (Albumin) IV ARIANE PRN Hypotension Alteplase, Recombinant 2 mg 05/25/19 09:30 05/28/19 21:15 Cathflo IV 2 mg ARIANE PRN Administration LINE FLUSH Lipase/Protease/Amylase 1 each 05/14/19 15:[address] 10,500 Unit FEEDTUBE PRN PRN For Clogged Feeding Tube Dextrose 50 gm 05/01/19 20:24 D50w (25gm) Vial IV Q30MIN PRN Hypoglycemia Protocol Enoxaparin Sodium 30 mg 05/16/19 10:00 06/04/19 09:47 Enoxaparin SUB-Q 30 mg QDAY VICKEY Administration Epoetin Hugo 10,000 unit 05/19/19 10:47 06/03/19 11:49 Procrit IV 10,000 unit ARIANE PRN Administration hemodialysis Famotidine 20 mg 05/16/19 10:00 06/04/19 09:47 Pepcid PO 20 mg DAILY VICKEY Administration Fentanyl 50 mcg 06/03/19 10:03 06/03/19 18:46 Sublimaze IV 50 mcg Q2HR PRN Administration Pain, Moderate (4-6) Hydralazine HCl 20 mg 05/13/19 08:09 06/04/19 14:48 Apresoline IV 20 mg Q4HR PRN Administration SBP >/=160 Propofol 1,000 mg in 100 mls @ 7.011 mls/hr 05/03/19 04:00 06/04/19 14:48 Diprivan 10 Mg/Ml IV 5 mcg/kg/min TITR VICKEY 7.011 mls/hr Titration Protocol 5 MCG/KG/MIN Sodium Chloride 100 mls @ 999 mls/hr 05/19/19 10:47 05/20/19 08:14 Nacl 0.9% IV 999 mls/hr ARIANE PRN Administration Hypotension Insulin Glargine 20 units 06/04/19 22:00 Lantus SUB-Q QHS VICKEY Insulin Human Lispro 0 unit 06/01/19 14:00 06/04/19 19:18 Humalog SUB-Q 6 unit Q6HR VICKEY Administration Protocol Labetalol HCl 100 mg 05/14/19 14:00 06/04/19 13:32 Labetalol PO 100 mg Q8HR VICKEY Administration Levetiracetam 750 mg 05/13/19 10:00 06/04/19 09:47 Keppra PO 750 mg BID VICKEY Administration Lorazepam 2 mg 05/06/19 06:22 05/10/19 16:17 Ativan IV 2 mg Q4H PRN Administration Seizures/AGITATION Methylprednisolone Sodium Succinate 125 mg 05/29/19 14:00 06/04/19 13:32 Solu-Medrol IV 125 mg Q8HR VICKEY Administration Scopolamine 1 each 05/20/19 12:00 05/20/19 12:52 Transderm-Scop TD 1 each Q72HR VICKEY Administration Simple Syrup 15 ml 05/14/19 15:01 Simple Syrup FEEDTUBE PRN PRN Hypoglycemia Simple Syrup 30 ml 05/14/19 15:01 Simple Syrup FEEDTUBE PRN PRN Hypoglycemia Sodium Bicarbonate 325 mg 05/14/19 15:01 Sodium Bicarbonate FEEDTUBE PRN PRN For Clogged Feeding Tube Nutrition/Malnutrition Assess - Dietary Evaluation Nutrition/Malnutrition Findings: Nutrition Notes Start: 05/04/19 12:54 Freq: Status: Active Protocol: Document 06/03/19 11:05 JOCELYN (Rec: 06/03/19 11:12 JOCELYN [id number]) Co-Sign 06/03/19 11:05 LP Nutrition Notes Initial or Follow up Reassessment Current Diagnosis Acute Kidney Injury,Sepsis, Respiratory Failure Other Pertinent Diagnosis on HD Current Diet Nepro 1.8 at 50 ml/hr Labs/Tests BUN 119 CR 4.1 Glu 330 POC Glu 254 Ca 8.1 Pertinent Medications Humalog Solumedrol Propofol at 7.011 ml/hr( 185kcal) Height 6 ft 4 in Weight 257.2 kg [place] Body Weight (kg) 91.81 BMI 69.0 Weight change and time frame Wt change noted. Likely due to fluid Weight Status Morbidly Obese Subjective/Other Information Pt tolerating Nepro at 50ml/hr . Pt on HD. Per MD, pt to possibly be extubated this week. Percent of energy/protein needs met: 100%/43% Burn Absent Trauma Absent Current % PO Negligible Minimum of two criteria No physical signs of malnutrition #1 Nutrition Diagnosis Inadequate oral intake Diagnosis Progress(for reassessment Continues documentation) Is patient on ventilator? Yes Is Patient Ambulatory and/or Out of Bed No REE-([place]-confined to bed) 4342.284 Kcal/Kg value to use for calculation 8 Approximate Energy Requirements Using 2057 kcal/Kg Calculation Used for Recommendations Kcal/kg Additional Notes PRO needs: 225 g (up to 2.5 g/ kg IBW) Fluid needs: 1 ml/kcal Nutrition Intervention Change Diet Order: Continue TF Nutrition Support: Nepro 1.8 at 50 ml/hr Flush with 150ml q4h Kcal 2,160 Protein (gm) 97 Fluid (mL) 872 Goal #1 TF tolerance Goal #2 Meet at least 75% kcal/PRO needs via TF Anticipated Discharge Needs: Unable to determine at this time Follow-Up By: 06/10/19 Additional Comments Follow for TF tolerance
[2019-06-04] MEDS: INSULIN GLARGINE 100 UNITS/ML SUB-Q SCH (22:20)
[2019-06-05] MEDS: INSULIN LISPRO 100 UNIT/ML SUB-Q SCH ×4 (01:08→18:22)
[2019-06-05] MEDS: methylPREDNISolone Sod Succinate 125 MG/2 ML INJ IV SCH ×3 (06:37→21:24)
[2019-06-05] MEDS: hydrALAZINE 20 MG/1 ML INJ IV PRN ×3 (07:12→17:12)
[2019-06-05] MEDS: levETIRAcetam 500 MG/5 ML ORAL LIQD PO SCH ×2 (09:40→21:23)
[2019-06-05] MEDS: FAMOTIDINE 20 MG TAB PO SCH (09:40)
[2019-06-05] MEDS: ENOXAPARIN 30 MG/0.3 ML INJ SUB-Q SCH (09:40)
--- NOTE | 2019-06-05 11:17 | Progress Note ---
Subjective Principal diagnosis: HF; acute hypoxemic resp failure, SIRS, CARLA Interval history: Patient was seen today for follow-up on multiple renal related issues, patient is critically ill in the ICU intubated has been currently dialysis dependent, blood pressure noted to be elevated patient is due for dialysis today Vitals intake output medications were reviewed Past medical history: Reviewed Family, social history: Reviewed Allergies: Reviewed Physical examination General: No acute distress Vitals: Reviewed HEENT: Oral mucosa moist no icterus Neck: Supple no thyromegaly nodular mass or JVD Chest: Clear to auscultation anteriorly Heart: Regular rate and rhythm S1-S2 heard no S3-S4 Abdomen: Soft nontender no suprapubic masses no organomegaly Extremity: Dry skin less than 1+ edema Psych: No evidence of any agitation and aggression noted Derm: No petechial rash Assessment and plan: Acute kidney injury: Multifactorial in etiology most likely due to vancomycin toxicity/ as well as likely acute tubular necrosis currently on Friday schedule From renal standpoint, patient's blood pressure remains elevated at 185/95 We will need a new set of lab today He is due for dialysis ultrafiltration goal will be between 3-4 kg With changes dialysis sodium to 135 Obtain labs during dialysis We will check post dialysis B UN after every dialysis treatment Multi-organ failure: Mortality risk is very high Hyperphosphatemia: We will follow-up Overall prognosis remains guarded to poor due to multiple comorbidities including the SIRS, shock, respiratory failure acute renal failure encephalopa thy seizure activity, cardiac arrest, obesity, congestive heart failure, malignant hypertension We'll continue to follow and make recommendation from renal standpoint Objective - Vital Signs Vital signs: Vital Signs - 12hr 06/04/19 06/04/19 06/05/19 23:17 23:30 00:00 Temperature 100.1 F H Pulse Rate 91 H 88 97 H Pulse Rate [ From Monitor] Respiratory 31 H 30 H Rate Blood Pressure 151/80 144/81 163/78 O2 Sat by Pulse 94 92 94 Oximetry 06/05/19 06/05/19 06/05/19 00:31 01:01 01:30 Temperature Pulse Rate 84 87 87 Pulse Rate [ From Monitor] Respiratory 20 28 H 27 H Rate Blood Pressure 163/78 163/78 175/95 O2 Sat by Pulse 95 96 90 Oximetry 06/05/19 06/05/19 06/05/19 02:00 02:30 03:00 Temperature Pulse Rate 84 84 80 Pulse Rate [ From Monitor] Respiratory 28 H 20 29 H Rate Blood Pressure 172/91 172/89 174/93 O2 Sat by Pulse 91 90 92 Oximetry 06/05/19 06/05/19 06/05/19 03:05 03:30 04:00 Temperature 100.3 F H Pulse Rate 82 83 82 Pulse Rate [ From Monitor] Respiratory 23 22 Rate Blood Pressure 172/89 175/86 168/88 O2 Sat by Pulse 96 92 91 Oximetry 06/05/19 06/05/19 06/05/19 04:30 05:00 05:30 Temperature Pulse Rate 84 96 H 89 Pulse Rate [ From Monitor] Respiratory 28 H 27 H 28 H Rate Blood Pressure 161/83 153/84 154/91 O2 Sat by Pulse 90 96 91 Oximetry 06/05/19 06/05/19 06/05/19 06:00 06:31 06:37 Temperature Pulse Rate 89 84 Pulse Rate [ From Monitor] Respiratory 17 29 H Rate Blood Pressure 145/96 174/101 174/101 O2 Sat by Pulse 88 90 Oximetry 06/05/19 06/05/19 06/05/19 07:00 07:12 07:30 Temperature Pulse Rate 78 68 83 Pulse Rate [ From Monitor] Respiratory 25 H 28 H Rate Blood Pressure 183/95 183/96 173/95 O2 Sat by Pulse 91 91 Oximetry 06/05/19 06/05/19 06/05/19 08:00 08:30 09:00 Temperature 100.0 F H Pulse Rate 80 84 91 H Pulse Rate [ 80 From Monitor] Respiratory 28 H 27 H 27 H Rate Blood Pressure 175/89 181/96 180/102 O2 Sat by Pulse 91 90 91 Oximetry 06/05/19 06/05/19 06/05/19 09:30 10:00 10:30 Temperature Pulse Rate 84 82 81 Pulse Rate [ From Monitor] Respiratory 26 H 27 H 29 H Rate Blood Pressure 180/98 182/96 185/94 O2 Sat by Pulse 92 90 91 Oximetry 06/05/19 11:00 Temperature Pulse Rate 79 Pulse Rate [ From Monitor] Respiratory 29 H Rate Blood Pressure 185/95 O2 Sat by Pulse 90 Oximetry - Lab 06/03/19 05:30 06/03/19 09:42 Most recent lab results ABG pH 7.375 pH Units (7.350-7.450) 06/01/19 04:33 ABG pCO2 42.7 mm Hg 06/01/19 04:33 ABG pO2 56.9 mm Hg (80.0-90.0) L 06/01/19 04:33 ABG HCO3 24.4 mmol/L (20.0-26.0) 06/01/19 04:33 ABG O2 Saturation 85.9 % (95.0-99.0) L 06/01/19 04:33 Calcium 8.1 mg/dL (8.4-10.2) L 06/03/19 05:30 Phosphorus 6.30 mg/dL (2.5-4.5) H 06/02/19 11:06 Magnesium 1.90 mg/dL (1.7-2.3) 05/31/19 13:04 Urine Creatinine 292.8 mg/dL (0.1-20.0) H 05/07/19 22:40 Urine Sodium 11 mmol/L 05/07/19 22:40 Urine Total Protein 269 mg/dL (5-11.8) H 05/07/19 22:40 Medications & Allergies - Medications Allergies/Adverse Reactions: Allergies No Known Allergies Allergy (Verified 05/01/19 20:27) Home Medications: Home Medications Medication Instructions Recorded Confirmed Last Taken Type No Known Home Medications [No 05/03/19 05/03/19 Unknown History Reported Home Medications] Active Medications: Generic Name Dose Route Start Last Admin Trade Name Freq PRN Reason Stop Dose Admin Albumin Human 25 gm 05/19/19 10:47 Alburx 25% (Albumin) IV ARIANE PRN Hypotension Alteplase, Recombinant 2 mg 05/25/19 09:30 05/28/19 21:15 Cathflo IV 2 mg ARIANE PRN Administration LINE FLUSH Lipase/Protease/Amylase 1 each 05/14/19 15:01 Pancremannie [place] 10,500 Unit FEEDTUBE PRN PRN For Clogged Feeding Tube Dextrose 50 gm 05/01/19 20:24 D50w (25gm) Vial IV Q30MIN PRN Hypoglycemia Protocol Enoxaparin Sodium 30 mg 05/16/19 10:00 06/05/19 09:40 Enoxaparin SUB-Q 30 mg QDAY VICKEY Administration Epoetin Hugo 10,000 unit 05/19/19 10:47 06/03/19 11:49 Procrit IV 10,000 unit ARIANE PRN Administration hemodialysis Famotidine 20 mg 05/16/19 10:00 06/05/19 09:40 Pepcid PO 20 mg DAILY VICKEY Administration Fentanyl 50 mcg 06/03/19 10:03 06/03/19 18:46 Sublimaze IV 50 mcg Q2HR PRN Administration Pain, Moderate (4-6) Hydralazine HCl 20 mg 05/13/19 08:09 06/05/19 07:12 Apresoline IV 20 mg Q4HR PRN Administration SBP >/=160 Propofol 1,000 mg in 100 mls @ 7.011 mls/hr 05/03/19 04:00 06/05/19 09:46 Diprivan 10 Mg/Ml IV 5 mcg/kg/min TITR VICKEY 7.011 mls/hr Administration Protocol 5 MCG/KG/MIN Sodium Chloride 100 mls @ 999 mls/hr 05/19/19 10:47 05/20/19 08:14 Nacl 0.9% IV 999 mls/hr ARIANE PRN Administration Hypotension Insulin Glargine 20 units 06/04/19 22:00 06/04/19 22:20 Lantus SUB-Q 20 units QHS VICKEY Administration Insulin Human Lispro 0 unit 06/01/19 14:00 06/05/19 06:37 Humalog SUB-Q 10 unit Q6HR VICKEY Administration Protocol Labetalol HCl 100 mg 05/14/19 14:00 06/05/19 06:37 Labetalol PO 100 mg Q8HR VICKEY Administration Levetiracetam 750 mg 05/13/19 10:00 06/05/19 09:40 Keppra PO 750 mg BID VICKEY Administration Lorazepam 2 mg 05/06/19 06:22 05/10/19 16:17 Ativan IV 2 mg Q4H PRN Administration Seizures/AGITATION Methylprednisolone Sodium Succinate 125 mg 05/29/19 14:00 06/05/19 06:37 Solu-Medrol IV 125 mg Q8HR VICKEY Administration Scopolamine 1 each 05/20/19 12:00 05/20/19 12:52 Transderm-Scop TD 1 each Q72HR VICKEY Administration Simple Syrup 15 ml 05/14/19 15:01 Simple Syrup FEEDTUBE PRN PRN Hypoglycemia Simple Syrup 30 ml 05/14/19 15:01 Simple Syrup FEEDTUBE PRN PRN Hypoglycemia Sodium Bicarbonate 325 mg 05/14/19 15:01 Sodium Bicarbonate FEEDTUBE PRN PRN For Clogged Feeding Tube
--- NOTE | 2019-06-05 13:16 | Progress Note ---
Assessment and Plan - Patient Problems (1) Acute heart failure with preserved ejection fraction Current Visit: Yes Status: Acute (2) Acute kidney injury Current Visit: Yes Status: Acute (3) Acute on chronic respiratory failure Current Visit: Yes Status: Acute Qualifiers: Respiratory failure complication: hypoxia Qualified Code(s): J96.21 - Acute and chronic respiratory failure with hypoxia (4) Anemia Current Visit: Yes Status: Acute (5) Cardiac arrest Current Visit: Yes Status: Acute (6) DVT prophylaxis Current Visit: Yes Status: Acute (7) Hypercapnic respiratory failure Current Visit: Yes Status: Acute Qualifiers: Chronicity: acute on chronic Qualified Code(s): J96.22 - Acute and chronic respiratory failure with hypercapnia (8) NSVT (nonsustained ventricular tachycardia) Current Visit: Yes Status: Acute (9) Noncompliance with CPAP treatment Current Visit: Yes Status: Acute (10) Morbid obesity Current Visit: Yes Status: Chronic (11) Congestive heart failure Current Visit: Yes Status: Suspected (12) LANDON (obstructive sleep apnea) Current Visit: Yes Status: Suspected Subjective Principal diagnosis: HF; acute hypoxemic resp failure, SIRS, CARLA Interval history: on vent orally intubated Objective Vital Signs - 12hr 06/05/19 06/05/19 06/05/19 01:30 02:00 02:30 Temperature Pulse Rate 87 84 84 Pulse Rate [ From Monitor] Respiratory 27 H 28 H 20 Rate Blood Pressure 175/95 172/91 172/89 O2 Sat by Pulse 90 91 90 Oximetry 06/05/19 06/05/19 06/05/19 03:00 03:05 03:30 Temperature Pulse Rate 80 82 83 Pulse Rate [ From Monitor] Respiratory 29 H 23 Rate Blood Pressure 174/93 172/89 175/86 O2 Sat by Pulse 92 96 92 Oximetry 06/05/19 06/05/19 06/05/19 04:00 04:30 05:00 Temperature 100.3 F H Pulse Rate 82 84 96 H Pulse Rate [ From Monitor] Respiratory 22 28 H 27 H Rate Blood Pressure 168/88 161/83 153/84 O2 Sat by Pulse 91 90 96 Oximetry 06/05/19 06/05/19 06/05/19 05:30 06:00 06:31 Temperature Pulse Rate 89 89 Pulse Rate [ From Monitor] Respiratory 28 H 17 29 H Rate Blood Pressure 154/91 145/96 174/101 O2 Sat by Pulse 91 88 90 Oximetry 06/05/19 06/05/19 06/05/19 06:37 07:00 07:12 Temperature Pulse Rate 84 78 68 Pulse Rate [ From Monitor] Respiratory 25 H Rate Blood Pressure 174/101 183/95 183/96 O2 Sat by Pulse 91 Oximetry 06/05/19 06/05/19 06/05/19 07:30 08:00 08:30 Temperature 100.0 F H Pulse Rate 83 80 84 Pulse Rate [ 80 From Monitor] Respiratory 28 H 28 H 27 H Rate Blood Pressure 173/95 175/89 181/96 O2 Sat by Pulse 91 91 90 Oximetry 06/05/19 06/05/19 06/05/19 09:00 09:30 10:00 Temperature Pulse Rate 91 H 84 82 Pulse Rate [ From Monitor] Respiratory 27 H 26 H 27 H Rate Blood Pressure 180/102 180/98 182/96 O2 Sat by Pulse 91 92 90 Oximetry 06/05/19 06/05/19 06/05/19 10:30 11:00 11:31 Temperature Pulse Rate 81 79 81 Pulse Rate [ From Monitor] Respiratory 29 H 29 H Rate Blood Pressure 185/94 185/95 186/96 O2 Sat by Pulse 91 90 Oximetry 06/05/19 12:00 Temperature 99.7 F H Pulse Rate Pulse Rate [ From Monitor] Respiratory Rate Blood Pressure O2 Sat by Pulse Oximetry Constitutional: no acute distress, other (morbidly obese male, on vent, orally intubated) Eyes: non-icteric ENT: oropharynx moist Neck: other (extremely large in circumference) Effort: normal Ascultation: Bilateral: diminished breath sounds (secondary to body habitus) Cardiovascular: regular rate and rhythm (no mrg) Gastrointestinal: normoactive bowel sounds, non-tender, other (obese) Integumentary: other (L hand is wrapped) Extremities: no cyanosis, pink and warm, other (1+ generalized edema) Neurologic: unable to assess Psychiatric: other (unable to assess) CBC and BMP: 06/03/19 05:30 06/03/19 09:42 ABG, PT/INR, D-dimer: ABG POC ABG pH 7.462 (7.35-7.45) H 06/05/19 03:52 ABG pH 7.375 pH Units (7.350-7.450) 06/01/19 04:33 POC ABG pCO2 39.8 (35-45) 06/05/19 03:52 ABG pCO2 42.7 mm Hg 06/01/19 04:33 POC ABG pO2 86 (80-105) 06/05/19 03:52 ABG pO2 56.9 mm Hg (80.0-90.0) L 06/01/19 04:33 POC ABG HCO3 28.4 (22-26 mml/L) 06/05/19 03:52 POC ABG Total CO2 30 (23-27mmol/L) 06/05/19 03:52 POC ABG O2 Sat 97 06/05/19 03:52 ABG O2 Saturation 85.9 % (95.0-99.0) L 06/01/19 04:33 PT/INR, D-dimer PT 15.4 Sec. (12.2-14.9) H 05/01/19 Unknown INR 1.23 (0.87-1.13) H 05/01/19 Unknown Abnormal lab findings: Abnormal Labs 05/01/19 05/01/19 05/01/19 17:50 19:26 22:36 WBC RBC Hgb Hct MCV MCH MCHC RDW Lymph % (Auto) [place] % (Auto) Eos % (Auto) Lymph # [place] # Eos # Seg Neutrophils % Seg Neuts % (Manual) Lymphocytes % (Manual) Monocytes % (Manual) Eosinophils % (Manual) Nucleated RBC % Seg Neutrophils # Seg Neutrophils # Man Lymphocytes # (Manual) Monocytes # (Manual) Eosinophils # (Manual) PT INR APTT POC ABG pH 7.272 L 7.331 L ABG pH POC ABG pCO2 52.8 H POC ABG pO2 ABG pO2 ABG HCO3 ABG O2 Saturation ABG Base Excess ABG Hemoglobin Oxyhemoglobin Sodium 136 L Potassium 6.5 H* Chloride 97.2 L Carbon Dioxide BUN 60 H Creatinine Glucose 113 H POC Glucose Uric Acid Calcium Phosphorus Magnesium 2.40 H AST 139 H ALT 154 H Total Creatine Kinase CK-MB (CK-2) Troponin T NT-Pro-B Natriuret Pep Total Protein Albumin 3.8 L Triglycerides HDL Cholesterol Urine WBC (Auto) Urine Creatinine Urine Total Protein Vancomycin Trough 05/01/19 05/01/19 05/01/19 Unknown Unknown Unknown WBC 16.1 H RBC Hgb Hct MCV MCH MCHC RDW 17.2 H Lymph % (Auto) [place] % (Auto) 9.6 H Eos % (Auto) Lymph # [place] # 1.5 H Eos # Seg Neutrophils % 73.0 H Seg Neuts % (Manual) Lymphocytes % (Manual) Monocytes % (Manual) Eosinophils % (Manual) Nucleated RBC % Seg Neutrophils # 11.7 H Seg Neutrophils # Man Lymphocytes # (Manual) Monocytes # (Manual) Eosinophils # (Manual) PT 15.4 H INR 1.23 H APTT 22.7 L POC ABG pH ABG pH POC ABG pCO2 POC ABG pO2 ABG pO2 ABG HCO3 ABG O2 Saturation ABG Base Excess ABG Hemoglobin Oxyhemoglobin Sodium Potassium Chloride Carbon Dioxide BUN Creatinine Glucose POC Glucose Uric Acid Calcium Phosphorus Magnesium AST ALT Total Creatine Kinase CK-MB (CK-2) Troponin T NT-Pro-B Natriuret Pep 6831 H Total Protein Albumin Triglycerides HDL Cholesterol Urine WBC (Auto) Urine Creatinine Urine Total Protein Vancomycin Trough 05/01/19 05/02/19 05/02/19 Unknown 00:06 00:06 WBC RBC Hgb Hct MCV MCH MCHC RDW Lymph % (Auto) [place] % (Auto) Eos % (Auto) Lymph # [place] # Eos # Seg Neutrophils % Seg Neuts % (Manual) Lymphocytes % (Manual) Monocytes % (Manual) Eosinophils % (Manual) Nucleated RBC % Seg Neutrophils # Seg Neutrophils # Man Lymphocytes # (Manual) Monocytes # (Manual) Eosinophils # (Manual) PT INR APTT POC ABG pH ABG pH POC ABG pCO2 POC ABG pO2 ABG pO2 ABG HCO3 ABG O2 Saturation ABG Base Excess ABG Hemoglobin Oxyhemoglobin Sodium Potassium Chloride Carbon Dioxide BUN Creatinine Glucose POC Glucose Uric Acid Calcium Phosphorus 4.90 H Magnesium AST ALT Total Creatine Kinase 226 H CK-MB (CK-2) 5.7 H Troponin T 0.044 H NT-Pro-B Natriuret Pep Total Protein Albumin Triglycerides 182 H HDL Cholesterol 18 L Urine WBC (Auto) Urine Creatinine Urine Total Protein Vancomycin Trough 05/02/19 05/02/19 05/02/19 02:08 04:40 04:41 WBC 17.6 H RBC Hgb Hct MCV MCH 27 L MCHC RDW 17.4 H Lymph % (Auto) 10.2 L [place] % (Auto) 11.0 H Eos % (Auto) Lymph # [place] # 1.9 H Eos # Seg Neutrophils % 78.0 H Seg Neuts % (Manual) Lymphocytes % (Manual) Monocytes % (Manual) Eosinophils % (Manual) Nucleated RBC % Seg Neutrophils # 13.8 H Seg Neutrophils # Man Lymphocytes # (Manual) Monocytes # (Manual) Eosinophils # (Manual) PT INR APTT POC ABG pH ABG pH POC ABG pCO2 46.8 H POC ABG pO2 63 L ABG pO2 ABG HCO3 ABG O2 Saturation ABG Base Excess ABG Hemoglobin Oxyhemoglobin Sodium Potassium Chloride 96.3 L Carbon Dioxide BUN 63 H Creatinine 1.7 H Glucose POC Glucose Uric Acid Calcium Phosphorus Magnesium AST ALT Total Creatine Kinase CK-MB (CK-2) Troponin T NT-Pro-B Natriuret Pep Total Protein Albumin Triglycerides HDL Cholesterol Urine WBC (Auto) Urine Creatinine Urine Total Protein Vancomycin Trough 05/02/19 05/02/19 05/02/19 04:41 04:41 16:05 WBC RBC Hgb Hct MCV MCH MCHC RDW Lymph % (Auto) [place] % (Auto) Eos % (Auto) Lymph # [place] # Eos # Seg Neutrophils % Seg Neuts % (Manual) Lymphocytes % (Manual) Monocytes % (Manual) Eosinophils % (Manual) Nucleated RBC % Seg Neutrophils # Seg Neutrophils # Man Lymphocytes # (Manual) Monocytes # (Manual) Eosinophils # (Manual) PT INR APTT POC ABG pH ABG pH POC ABG pCO2 POC ABG pO2 ABG pO2 66.6 L ABG HCO3 31.9 H ABG O2 Saturation 92.5 L ABG Base Excess 5.8 H ABG Hemoglobin 13.3 L Oxyhemoglobin 90.6 L Sodium Potassium Chloride 97.2 L Carbon Dioxide BUN 61 H Creatinine 1.8 H Glucose POC Glucose Uric Acid Calcium Phosphorus Magnesium AST ALT Total Creatine Kinase CK-MB (CK-2) 5.2 H Troponin T 0.067 H D NT-Pro-B Natriuret Pep Total Protein Albumin Triglycerides HDL Cholesterol Urine WBC (Auto) Urine Creatinine Urine Total Protein Vancomycin Trough 05/02/19 05/03/19 05/03/19 20:39 04:35 05:05 WBC 11.8 H RBC Hgb Hct MCV MCH 27 L MCHC 31 L RDW 17.2 H Lymph % (Auto) [place] % (Auto) Eos % (Auto) Lymph # [place] # Eos # Seg Neutrophils % Seg Neuts % (Manual) Lymphocytes % (Manual) Monocytes % (Manual) Eosinophils % (Manual) Nucleated RBC % Seg Neutrophils # Seg Neutrophils # Man Lymphocytes # (Manual) Monocytes # (Manual) Eosinophils # (Manual) PT INR APTT POC ABG pH ABG pH POC ABG pCO2 53.6 H 54.0 H POC ABG pO2 55 L 63 L ABG pO2 ABG HCO3 ABG O2 Saturation ABG Base Excess ABG Hemoglobin Oxyhemoglobin Sodium Potassium Chloride Carbon Dioxide BUN Creatinine Glucose POC Glucose Uric Acid Calcium Phosphorus Magnesium AST ALT Total Creatine Kinase CK-MB (CK-2) Troponin T NT-Pro-B Natriuret Pep Total Protein Albumin Triglycerides HDL Cholesterol Urine WBC (Auto) Urine Creatinine Urine Total Protein Vancomycin Trough 05/03/19 05/03/19 05/03/19 05:05 10:55 16:48 WBC RBC Hgb Hct MCV MCH MCHC RDW Lymph % (Auto) [place] % (Auto) Eos % (Auto) Lymph # [place] # Eos # Seg Neutrophils % Seg Neuts % (Manual) Lymphocytes % (Manual) Monocytes % (Manual) Eosinophils % (Manual) Nucleated RBC % Seg Neutrophils # Seg Neutrophils # Man Lymphocytes # (Manual) Monocytes # (Manual) Eosinophils # (Manual) PT INR APTT POC ABG pH 7.604 H ABG pH POC ABG pCO2 POC ABG pO2 58 L ABG pO2 ABG HCO3 ABG O2 Saturation ABG Base Excess ABG Hemoglobin Oxyhemoglobin Sodium Potassium Chloride Carbon Dioxide BUN 52 H Creatinine 1.9 H Glucose 103 H POC Glucose Uric Acid Calcium Phosphorus Magnesium AST ALT Total Creatine Kinase CK-MB (CK-2) Troponin T NT-Pro-B Natriuret Pep Total Protein Albumin Triglycerides HDL Cholesterol Urine WBC (Auto) 33.0 H Urine Creatinine Urine Total Protein Vancomycin Trough 05/04/19 05/04/19 05/04/19 04:49 06:50 06:50 WBC 16.0 H RBC Hgb Hct MCV MCH 27 L MCHC 31 L RDW 17.8 H Lymph % (Auto) [place] % (Auto) Eos % (Auto) Lymph # [place] # Eos # Seg Neutrophils % Seg Neuts % (Manual) Lymphocytes % (Manual) Monocytes % (Manual) Eosinophils % (Manual) Nucleated RBC % Seg Neutrophils # Seg Neutrophils # Man Lymphocytes # (Manual) Monocytes # (Manual) Eosinophils # (Manual) PT INR APTT POC ABG pH 7.273 L ABG pH POC ABG pCO2 POC ABG pO2 ABG pO2 ABG HCO3 ABG O2 Saturation ABG Base Excess ABG Hemoglobin Oxyhemoglobin Sodium 148 H Potassium 5.5 H Chloride Carbon Dioxide BUN 53 H Creatinine 3.3 H D Glucose 106 H POC Glucose Uric Acid Calcium 8.3 L Phosphorus Magnesium AST ALT Total Creatine Kinase CK-MB (CK-2) Troponin T NT-Pro-B Natriuret Pep Total Protein Albumin Triglycerides HDL Cholesterol Urine WBC (Auto) Urine Creatinine Urine Total Protein Vancomycin Trough 05/05/19 05/05/19 05/05/19 00:05 04:30 05:00 WBC RBC Hgb Hct MCV MCH MCHC RDW Lymph % (Auto) [place] % (Auto) Eos % (Auto) Lymph # [place] # Eos # Seg Neutrophils % Seg Neuts % (Manual) Lymphocytes % (Manual) Monocytes % (Manual) Eosinophils % (Manual) Nucleated RBC % Seg Neutrophils # Seg Neutrophils # Man Lymphocytes # (Manual) Monocytes # (Manual) Eosinophils # (Manual) PT INR APTT POC ABG pH 7.225 L ABG pH POC ABG pCO2 > 70 H POC ABG pO2 ABG pO2 ABG HCO3 ABG O2 Saturation ABG Base Excess ABG Hemoglobin Oxyhemoglobin Sodium 151 H Potassium 5.1 H Chloride Carbon Dioxide BUN 64 H Creatinine 3.5 H Glucose 117 H POC Glucose 141 H Uric Acid Calcium 7.5 L Phosphorus Magnesium AST 93 H ALT 65 H Total Creatine Kinase CK-MB (CK-2) Troponin T NT-Pro-B Natriuret Pep Total Protein Albumin 2.9 L Triglycerides HDL Cholesterol Urine WBC (Auto) Urine Creatinine Urine Total Protein Vancomycin Trough 05/05/19 05/05/19 05/05/19 05:00 12:02 17:46 WBC 12.0 H RBC Hgb 11.3 L Hct MCV MCH 27 L MCHC 30 L RDW 18.4 H Lymph % (Auto) 7.9 L [place] % (Auto) 10.2 H Eos % (Auto) Lymph # 1.0 L [place] # 1.2 H Eos # Seg Neutrophils % 80.8 H Seg Neuts % (Manual) Lymphocytes % (Manual) Monocytes % (Manual) Eosinophils % (Manual) Nucleated RBC % Seg Neutrophils # 9.7 H Seg Neutrophils # Man Lymphocytes # (Manual) Monocytes # (Manual) Eosinophils # (Manual) PT INR APTT POC ABG pH ABG pH POC ABG pCO2 POC ABG pO2 ABG pO2 ABG HCO3 ABG O2 Saturation ABG Base Excess ABG Hemoglobin Oxyhemoglobin Sodium Potassium Chloride Carbon Dioxide BUN Creatinine Glucose POC Glucose 125 H 112 H Uric Acid Calcium Phosphorus Magnesium AST ALT Total Creatine Kinase CK-MB (CK-2) Troponin T NT-Pro-B Natriuret Pep Total Protein Albumin Triglycerides HDL Cholesterol Urine WBC (Auto) Urine Creatinine Urine Total Protein Vancomycin Trough 05/05/19 05/06/19 05/06/19 23:42 03:58 04:45 WBC 11.4 H RBC Hgb 10.7 L Hct 34.2 L MCV MCH 27 L MCHC 31 L RDW 16.9 H Lymph % (Auto) [place] % (Auto) Eos % (Auto) Lymph # [place] # Eos # Seg Neutrophils % Seg Neuts % (Manual) Lymphocytes % (Manual) Monocytes % (Manual) Eosinophils % (Manual) Nucleated RBC % Seg Neutrophils # Seg Neutrophils # Man Lymphocytes # (Manual) Monocytes # (Manual) Eosinophils # (Manual) PT INR APTT POC ABG pH ABG pH POC ABG pCO2 62.4 H POC ABG pO2 111 H ABG pO2 ABG HCO3 ABG O2 Saturation ABG Base Excess ABG Hemoglobin Oxyhemoglobin Sodium Potassium Chloride Carbon Dioxide BUN Creatinine Glucose POC Glucose 128 H Uric Acid Calcium Phosphorus Magnesium AST ALT Total Creatine Kinase CK-MB (CK-2) Troponin T NT-Pro-B Natriuret Pep Total Protein Albumin Triglycerides HDL Cholesterol Urine WBC (Auto) Urine Creatinine Urine Total Protein Vancomycin Trough 05/06/19 05/06/19 05/06/19 04:45 05:33 12:30 WBC RBC Hgb Hct MCV MCH MCHC RDW Lymph % (Auto) [place] % (Auto) Eos % (Auto) Lymph # [place] # Eos # Seg Neutrophils % Seg Neuts % (Manual) Lymphocytes % (Manual) Monocytes % (Manual) Eosinophils % (Manual) Nucleated RBC % Seg Neutrophils # Seg Neutrophils # Man Lymphocytes # (Manual) Monocytes # (Manual) Eosinophils # (Manual) PT INR APTT POC ABG pH ABG pH POC ABG pCO2 POC ABG pO2 ABG pO2 ABG HCO3 ABG O2 Saturation ABG Base Excess ABG Hemoglobin Oxyhemoglobin Sodium 149 H Potassium Chloride Carbon Dioxide 31 H BUN 67 H Creatinine 3.2 H Glucose 125 H POC Glucose 117 H 116 H Uric Acid Calcium 7.5 L Phosphorus Magnesium AST ALT Total Creatine Kinase CK-MB (CK-2) Troponin T NT-Pro-B Natriuret Pep Total Protein Albumin Triglycerides HDL Cholesterol Urine WBC (Auto) Urine Creatinine Urine Total Protein Vancomycin Trough 05/06/19 05/06/19 05/07/19 18:34 23:16 05:22 WBC RBC Hgb Hct MCV MCH MCHC RDW Lymph % (Auto) [place] % (Auto) Eos % (Auto) Lymph # [place] # Eos # Seg Neutrophils % Seg Neuts % (Manual) Lymphocytes % (Manual) Monocytes % (Manual) Eosinophils % (Manual) Nucleated RBC % Seg Neutrophils # Seg Neutrophils # Man Lymphocytes # (Manual) Monocytes # (Manual) Eosinophils # (Manual) PT INR APTT POC ABG pH ABG pH POC ABG pCO2 POC ABG pO2 ABG pO2 ABG HCO3 ABG O2 Saturation ABG Base Excess ABG Hemoglobin Oxyhemoglobin Sodium Potassium Chloride Carbon Dioxide BUN Creatinine Glucose POC Glucose 128 H 143 H 166 H Uric Acid Calcium Phosphorus Magnesium AST ALT Total Creatine Kinase CK-MB (CK-2) Troponin T NT-Pro-B Natriuret Pep Total Protein Albumin Triglycerides HDL Cholesterol Urine WBC (Auto) Urine Creatinine Urine Total Protein Vancomycin Trough 05/07/19 05/07/19 05/07/19 06:33 07:03 09:35 WBC RBC Hgb Hct MCV MCH MCHC RDW Lymph % (Auto) [place] % (Auto) Eos % (Auto) Lymph # [place] # Eos # Seg Neutrophils % Seg Neuts % (Manual) Lymphocytes % (Manual) Monocytes % (Manual) Eosinophils % (Manual) Nucleated RBC % Seg Neutrophils # Seg Neutrophils # Man Lymphocytes # (Manual) Monocytes # (Manual) Eosinophils # (Manual) PT INR APTT POC ABG pH 7.263 L 7.288 L ABG pH POC ABG pCO2 POC ABG pO2 51 L 56 L ABG pO2 ABG HCO3 ABG O2 Saturation ABG Base Excess ABG Hemoglobin Oxyhemoglobin Sodium Potassium Chloride Carbon Dioxide BUN 76 H Creatinine 3.2 H Glucose 147 H POC Glucose Uric Acid Calcium 7.9 L Phosphorus Magnesium AST ALT Total Creatine Kinase CK-MB (CK-2) Troponin T NT-Pro-B Natriuret Pep Total Protein Albumin Triglycerides HDL Cholesterol Urine WBC (Auto) Urine Creatinine Urine Total Protein Vancomycin Trough 05/07/19 05/07/19 05/07/19 09:35 12:17 13:45 WBC 13.4 H RBC Hgb 11.6 L Hct MCV MCH 27 L MCHC 31 L RDW 17.5 H Lymph % (Auto) [place] % (Auto) Eos % (Auto) Lymph # [place] # Eos # Seg Neutrophils % Seg Neuts % (Manual) Lymphocytes % (Manual) Monocytes % (Manual) Eosinophils % (Manual) Nucleated RBC % Seg Neutrophils # Seg Neutrophils # Man Lymphocytes # (Manual) Monocytes # (Manual) Eosinophils # (Manual) PT INR APTT POC ABG pH ABG pH POC ABG pCO2 POC ABG pO2 ABG pO2 ABG HCO3 ABG O2 Saturation ABG Base Excess ABG Hemoglobin Oxyhemoglobin Sodium Potassium Chloride Carbon Dioxide BUN Creatinine Glucose POC Glucose 130 H Uric Acid 18.0 H Calcium Phosphorus Magnesium AST ALT Total Creatine Kinase CK-MB (CK-2) Troponin T NT-Pro-B Natriuret Pep Total Protein Albumin Triglycerides HDL Cholesterol Urine WBC (Auto) Urine Creatinine Urine Total Protein Vancomycin Trough 05/07/19 05/07/19 05/08/19 17:39 22:40 05:06 WBC RBC Hgb Hct MCV MCH MCHC RDW Lymph % (Auto) [place] % (Auto) Eos % (Auto) Lymph # [place] # Eos # Seg Neutrophils % Seg Neuts % (Manual) Lymphocytes % (Manual) Monocytes % (Manual) Eosinophils % (Manual) Nucleated RBC % Seg Neutrophils # Seg Neutrophils # Man Lymphocytes # (Manual) Monocytes # (Manual) Eosinophils # (Manual) PT INR APTT POC ABG pH ABG pH POC ABG pCO2 POC ABG pO2 ABG pO2 ABG HCO3 ABG O2 Saturation ABG Base Excess ABG Hemoglobin Oxyhemoglobin Sodium Potassium Chloride Carbon Dioxide BUN Creatinine Glucose POC Glucose 116 H 148 H Uric Acid Calcium Phosphorus Magnesium AST ALT Total Creatine Kinase CK-MB (CK-2) Troponin T NT-Pro-B Natriuret Pep Total Protein Albumin Triglycerides HDL Cholesterol Urine WBC (Auto) Urine Creatinine 292.8 H Urine Total Protein 269 H Vancomycin Trough 05/08/19 05/08/19 05/08/19 05:32 11:28 13:48 WBC RBC Hgb Hct MCV MCH MCHC RDW Lymph % (Auto) [place] % (Auto) Eos % (Auto) Lymph # [place] # Eos # Seg Neutrophils % Seg Neuts % (Manual) Lymphocytes % (Manual) Monocytes % (Manual) Eosinophils % (Manual) Nucleated RBC % Seg Neutrophils # Seg Neutrophils # Man Lymphocytes # (Manual) Monocytes # (Manual) Eosinophils # (Manual) PT INR APTT POC ABG pH ABG pH POC ABG pCO2 45.4 H POC ABG pO2 64 L ABG pO2 ABG HCO3 ABG O2 Saturation ABG Base Excess ABG Hemoglobin Oxyhemoglobin Sodium Potassium Chloride Carbon Dioxide BUN 73 H Creatinine 2.7 H Glucose 127 H POC Glucose 107 H Uric Acid Calcium 7.6 L Phosphorus Magnesium AST ALT Total Creatine Kinase CK-MB (CK-2) Troponin T NT-Pro-B Natriuret Pep Total Protein Albumin Triglycerides HDL Cholesterol Urine WBC (Auto) Urine Creatinine Urine Total Protein Vancomycin Trough 05/08/19 05/09/19 05/09/19 17:48 04:50 04:53 WBC RBC 3.07 L Hgb 8.5 L D Hct 29.3 L D MCV 96 H MCH MCHC 29 L RDW 18.1 H Lymph % (Auto) [place] % (Auto) Eos % (Auto) Lymph # [place] # Eos # Seg Neutrophils % Seg Neuts % (Manual) Lymphocytes % (Manual) Monocytes % (Manual) Eosinophils % (Manual) Nucleated RBC % Seg Neutrophils # Seg Neutrophils # Man Lymphocytes # (Manual) Monocytes # (Manual) Eosinophils # (Manual) PT INR APTT POC ABG pH 7.316 L ABG pH POC ABG pCO2 66.0 H POC ABG pO2 69 L ABG pO2 ABG HCO3 ABG O2 Saturation ABG Base Excess ABG Hemoglobin Oxyhemoglobin Sodium Potassium Chloride Carbon Dioxide BUN Creatinine Glucose POC Glucose 155 H Uric Acid Calcium Phosphorus Magnesium AST ALT Total Creatine Kinase CK-MB (CK-2) Troponin T NT-Pro-B Natriuret Pep Total Protein Albumin Triglycerides HDL Cholesterol Urine WBC (Auto) Urine Creatinine Urine Total Protein Vancomycin Trough 05/09/19 05/09/19 05/09/19 05:46 07:24 12:10 WBC RBC Hgb Hct MCV MCH MCHC RDW Lymph % (Auto) [place] % (Auto) Eos % (Auto) Lymph # [place] # Eos # Seg Neutrophils % Seg Neuts % (Manual) Lymphocytes % (Manual) Monocytes % (Manual) Eosinophils % (Manual) Nucleated RBC % Seg Neutrophils # Seg Neutrophils # Man Lymphocytes # (Manual) Monocytes # (Manual) Eosinophils # (Manual) PT INR APTT POC ABG pH ABG pH POC ABG pCO2 POC ABG pO2 ABG pO2 ABG HCO3 ABG O2 Saturation ABG Base Excess ABG Hemoglobin Oxyhemoglobin Sodium Potassium Chloride Carbon Dioxide BUN 73 H Creatinine 2.4 H Glucose 153 H POC Glucose 123 H 148 H Uric Acid Calcium 8.2 L Phosphorus Magnesium AST 45 H ALT Total Creatine Kinase CK-MB (CK-2) Troponin T NT-Pro-B Natriuret Pep Total Protein 6.0 L Albumin 1.9 L Triglycerides HDL Cholesterol Urine WBC (Auto) Urine Creatinine Urine Total Protein Vancomycin Trough 05/09/19 05/09/19 05/10/19 18:23 23:26 04:52 WBC RBC Hgb Hct MCV MCH MCHC RDW Lymph % (Auto) [place] % (Auto) Eos % (Auto) Lymph # [place] # Eos # Seg Neutrophils % Seg Neuts % (Manual) Lymphocytes % (Manual) Monocytes % (Manual) Eosinophils % (Manual) Nucleated RBC % Seg Neutrophils # Seg Neutrophils # Man Lymphocytes # (Manual) Monocytes # (Manual) Eosinophils # (Manual) PT INR APTT POC ABG pH 7.305 L ABG pH POC ABG pCO2 62.6 H POC ABG pO2 ABG pO2 ABG HCO3 ABG O2 Saturation ABG Base Excess ABG Hemoglobin Oxyhemoglobin Sodium Potassium Chloride Carbon Dioxide BUN Creatinine Glucose POC Glucose 147 H 121 H Uric Acid Calcium Phosphorus Magnesium AST ALT Total Creatine Kinase CK-MB (CK-2) Troponin T NT-Pro-B Natriuret Pep Total Protein Albumin Triglycerides HDL Cholesterol Urine WBC (Auto) Urine Creatinine Urine Total Protein Vancomycin Trough 05/10/19 05/10/19 05/10/19 05:00 05:00 05:50 WBC RBC Hgb 10.3 L Hct 33.7 L MCV MCH 27 L MCHC 31 L RDW 17.0 H Lymph % (Auto) [place] % (Auto) Eos % (Auto) Lymph # [place] # Eos # Seg Neutrophils % Seg Neuts % (Manual) Lymphocytes % (Manual) Monocytes % (Manual) Eosinophils % (Manual) Nucleated RBC % Seg Neutrophils # Seg Neutrophils # Man Lymphocytes # (Manual) Monocytes # (Manual) Eosinophils # (Manual) PT INR APTT POC ABG pH ABG pH POC ABG pCO2 POC ABG pO2 ABG pO2 ABG HCO3 ABG O2 Saturation ABG Base Excess ABG Hemoglobin Oxyhemoglobin Sodium 147 H Potassium Chloride Carbon Dioxide BUN 70 H Creatinine 2.6 H Glucose 155 H POC Glucose 158 H Uric Acid Calcium 8.2 L Phosphorus Magnesium AST ALT Total Creatine Kinase CK-MB (CK-2) Troponin T NT-Pro-B Natriuret Pep Total Protein 6.1 L Albumin 2.5 L Triglycerides HDL Cholesterol Urine WBC (Auto) Urine Creatinine Urine Total Protein Vancomycin Trough 05/10/19 05/11/19 05/11/19 13:14 07:26 11:40 WBC RBC Hgb Hct MCV MCH MCHC RDW Lymph % (Auto) [place] % (Auto) Eos % (Auto) Lymph # [place] # Eos # Seg Neutrophils % Seg Neuts % (Manual) Lymphocytes % (Manual) Monocytes % (Manual) Eosinophils % (Manual) Nucleated RBC % Seg Neutrophils # Seg Neutrophils # Man Lymphocytes # (Manual) Monocytes # (Manual) Eosinophils # (Manual) PT INR APTT POC ABG pH ABG pH POC ABG pCO2 48.0 H POC ABG pO2 58 L ABG pO2 ABG HCO3 ABG O2 Saturation ABG Base Excess ABG Hemoglobin Oxyhemoglobin Sodium 147 H Potassium Chloride 107.2 H Carbon Dioxide BUN 67 H Creatinine 2.6 H Glucose 121 H POC Glucose 159 H Uric Acid Calcium Phosphorus Magnesium AST ALT Total Creatine Kinase CK-MB (CK-2) Troponin T NT-Pro-B Natriuret Pep Total Protein Albumin Triglycerides HDL Cholesterol Urine WBC (Auto) Urine Creatinine Urine Total Protein Vancomycin Trough 05/11/19 05/11/19 05/12/19 18:13 23:46 04:40 WBC RBC Hgb Hct MCV MCH MCHC RDW Lymph % (Auto) [place] % (Auto) Eos % (Auto) Lymph # [place] # Eos # Seg Neutrophils % Seg Neuts % (Manual) Lymphocytes % (Manual) Monocytes % (Manual) Eosinophils % (Manual) Nucleated RBC % Seg Neutrophils # Seg Neutrophils # Man Lymphocytes # (Manual) Monocytes # (Manual) Eosinophils # (Manual) PT INR APTT POC ABG pH ABG pH 7.264 L POC ABG pCO2 POC ABG pO2 ABG pO2 66.8 L ABG HCO3 31.0 H ABG O2 Saturation 92.0 L ABG Base Excess ABG Hemoglobin 10.3 L Oxyhemoglobin 90.1 L Sodium Potassium Chloride Carbon Dioxide BUN Creatinine Glucose POC Glucose 120 H 121 H Uric Acid Calcium Phosphorus Magnesium AST ALT Total Creatine Kinase CK-MB (CK-2) Troponin T NT-Pro-B Natriuret Pep Total Protein Albumin Triglycerides HDL Cholesterol Urine WBC (Auto) Urine Creatinine Urine Total Protein Vancomycin Trough 05/12/19 05/12/19 05/12/19 04:45 04:45 11:14 WBC RBC Hgb 10.2 L Hct 32.4 L MCV MCH MCHC 31 L RDW 17.2 H Lymph % (Auto) [place] % (Auto) Eos % (Auto) Lymph # [place] # Eos # Seg Neutrophils % Seg Neuts % (Manual) Lymphocytes % (Manual) Monocytes % (Manual) Eosinophils % (Manual) Nucleated RBC % Seg Neutrophils # Seg Neutrophils # Man Lymphocytes # (Manual) Monocytes # (Manual) Eosinophils # (Manual) PT INR APTT POC ABG pH 7.284 L ABG pH POC ABG pCO2 67.8 H POC ABG pO2 ABG pO2 ABG HCO3 ABG O2 Saturation ABG Base Excess ABG Hemoglobin Oxyhemoglobin Sodium Potassium Chloride Carbon Dioxide BUN 63 H Creatinine 2.4 H Glucose 110 H POC Glucose Uric Acid Calcium Phosphorus Magnesium AST ALT Total Creatine Kinase CK-MB (CK-2) Troponin T NT-Pro-B Natriuret Pep Total Protein Albumin Triglycerides HDL Cholesterol Urine WBC (Auto) Urine Creatinine Urine Total Protein Vancomycin Trough 05/12/19 05/12/19 05/13/19 11:44 23:11 04:30 WBC RBC Hgb Hct MCV MCH MCHC RDW Lymph % (Auto) [place] % (Auto) Eos % (Auto) Lymph # [place] # Eos # Seg Neutrophils % Seg Neuts % (Manual) Lymphocytes % (Manual) Monocytes % (Manual) Eosinophils % (Manual) Nucleated RBC % Seg Neutrophils # Seg Neutrophils # Man Lymphocytes # (Manual) Monocytes # (Manual) Eosinophils # (Manual) PT INR APTT POC ABG pH ABG pH 7.288 L POC ABG pCO2 POC ABG pO2 ABG pO2 109.7 H ABG HCO3 30.9 H ABG O2 Saturation ABG Base Excess 3.2 H ABG Hemoglobin 9.6 L Oxyhemoglobin Sodium Potassium Chloride Carbon Dioxide BUN Creatinine Glucose POC Glucose 126 H 147 H Uric Acid Calcium Phosphorus Magnesium AST ALT Total Creatine Kinase CK-MB (CK-2) Troponin T NT-Pro-B Natriuret Pep Total Protein Albumin Triglycerides HDL Cholesterol Urine WBC (Auto) Urine Creatinine Urine Total Protein Vancomycin Trough 05/13/19 05/13/19 05/14/19 06:27 11:58 04:00 WBC RBC 3.16 L Hgb 9.3 L Hct 27.9 L MCV MCH MCHC RDW 17.1 H Lymph % (Auto) [place] % (Auto) Eos % (Auto) Lymph # [place] # Eos # Seg Neutrophils % Seg Neuts % (Manual) Lymphocytes % (Manual) Monocytes % (Manual) Eosinophils % (Manual) Nucleated RBC % Seg Neutrophils # Seg Neutrophils # Man Lymphocytes # (Manual) Monocytes # (Manual) Eosinophils # (Manual) PT INR APTT POC ABG pH ABG pH POC ABG pCO2 POC ABG pO2 ABG pO2 ABG HCO3 ABG O2 Saturation ABG Base Excess ABG Hemoglobin Oxyhemoglobin Sodium Potassium Chloride Carbon Dioxide BUN Creatinine Glucose POC Glucose 113 H 130 H Uric Acid Calcium Phosphorus Magnesium AST ALT Total Creatine Kinase CK-MB (CK-2) Troponin T NT-Pro-B Natriuret Pep Total Protein Albumin Triglycerides HDL Cholesterol Urine WBC (Auto) Urine Creatinine Urine Total Protein Vancomycin Trough 05/14/19 05/14/19 05/14/19 04:00 04:34 05:32 WBC RBC Hgb Hct MCV MCH MCHC RDW Lymph % (Auto) [place] % (Auto) Eos % (Auto) Lymph # [place] # Eos # Seg Neutrophils % Seg Neuts % (Manual) Lymphocytes % (Manual) Monocytes % (Manual) Eosinophils % (Manual) Nucleated RBC % Seg Neutrophils # Seg Neutrophils # Man Lymphocytes # (Manual) Monocytes # (Manual) Eosinophils # (Manual) PT INR APTT POC ABG pH 7.328 L ABG pH POC ABG pCO2 61.7 H POC ABG pO2 ABG pO2 ABG HCO3 ABG O2 Saturation ABG Base Excess ABG Hemoglobin Oxyhemoglobin Sodium 135 L D Potassium Chloride Carbon Dioxide BUN 57 H Creatinine 2.2 H Glucose 115 H POC Glucose 115 H Uric Acid Calcium 8.1 L Phosphorus Magnesium AST ALT Total Creatine Kinase CK-MB (CK-2) Troponin T NT-Pro-B Natriuret Pep Total Protein Albumin Triglycerides HDL Cholesterol Urine WBC (Auto) Urine Creatinine Urine Total Protein Vancomycin Trough 05/14/19 05/15/19 05/15/19 12:11 05:10 05:24 WBC RBC Hgb Hct MCV MCH MCHC RDW Lymph % (Auto) [place] % (Auto) Eos % (Auto) Lymph # [place] # Eos # Seg Neutrophils % Seg Neuts % (Manual) Lymphocytes % (Manual) Monocytes % (Manual) Eosinophils % (Manual) Nucleated RBC % Seg Neutrophils # Seg Neutrophils # Man Lymphocytes # (Manual) Monocytes # (Manual) Eosinophils # (Manual) PT INR APTT POC ABG pH ABG pH 7.342 L POC ABG pCO2 POC ABG pO2 ABG pO2 79.1 L ABG HCO3 28.2 H ABG O2 Saturation ABG Base Excess ABG Hemoglobin 7.0 L Oxyhemoglobin 94.4 L Sodium Potassium Chloride Carbon Dioxide BUN Creatinine Glucose POC Glucose 110 H 116 H Uric Acid Calcium Phosphorus Magnesium AST ALT Total Creatine Kinase CK-MB (CK-2) Troponin T NT-Pro-B Natriuret Pep Total Protein Albumin Triglycerides HDL Cholesterol Urine WBC (Auto) Urine Creatinine Urine Total Protein Vancomycin Trough 05/15/19 05/15/19 05/16/19 09:00 18:12 04:50 WBC RBC Hgb Hct MCV MCH MCHC RDW Lymph % (Auto) [place] % (Auto) Eos % (Auto) Lymph # [place] # Eos # Seg Neutrophils % Seg Neuts % (Manual) Lymphocytes % (Manual) Monocytes % (Manual) Eosinophils % (Manual) Nucleated RBC % Seg Neutrophils # Seg Neutrophils # Man Lymphocytes # (Manual) Monocytes # (Manual) Eosinophils # (Manual) PT INR APTT POC ABG pH ABG pH 7.250 L POC ABG pCO2 POC ABG pO2 ABG pO2 76.4 L ABG HCO3 ABG O2 Saturation 94.6 L ABG Base Excess -3.1 L ABG Hemoglobin 9.7 L Oxyhemoglobin 92.4 L Sodium Potassium Chloride Carbon Dioxide BUN Creatinine Glucose POC Glucose 110 H Uric Acid Calcium Phosphorus Magnesium AST ALT Total Creatine Kinase CK-MB (CK-2) Troponin T NT-Pro-B Natriuret Pep Total Protein Albumin Triglycerides HDL Cholesterol Urine WBC (Auto) Urine Creatinine Urine Total Protein Vancomycin Trough 20.5 H 05/16/19 05/16/19 05/17/19 05:50 05:50 04:20 WBC RBC 3.36 L 3.44 L Hgb 9.4 L 9.3 L Hct 29.1 L 29.7 L MCV MCH 27 L MCHC 31 L RDW 17.6 H 17.6 H Lymph % (Auto) [place] % (Auto) Eos % (Auto) Lymph # [place] # Eos # Seg Neutrophils % Seg Neuts % (Manual) 77.0 H Lymphocytes % (Manual) 5.0 L Monocytes % (Manual) Eosinophils % (Manual) 10.0 H Nucleated RBC % Seg Neutrophils # Seg Neutrophils # Man Lymphocytes # (Manual) 0.5 L Monocytes # (Manual) Eosinophils # (Manual) 0.9 H PT INR APTT POC ABG pH ABG pH POC ABG pCO2 POC ABG pO2 ABG pO2 ABG HCO3 ABG O2 Saturation ABG Base Excess ABG Hemoglobin Oxyhemoglobin Sodium Potassium Chloride Carbon Dioxide BUN 83 H Creatinine 4.4 H D Glucose 118 H POC Glucose Uric Acid Calcium Phosphorus Magnesium AST ALT Total Creatine Kinase CK-MB (CK-2) Troponin T NT-Pro-B Natriuret Pep Total Protein Albumin Triglycerides HDL Cholesterol Urine WBC (Auto) Urine Creatinine Urine Total Protein Vancomycin Trough 05/17/19 05/17/19 05/18/19 04:30 Unknown 01:50 WBC RBC 3.49 L Hgb 9.4 L Hct 30.0 L MCV MCH 27 L MCHC 31 L RDW 17.8 H Lymph % (Auto) 7.9 L [place] % (Auto) 15.4 H Eos % (Auto) 6.3 H Lymph # 0.7 L [place] # 1.4 H Eos # 0.6 H Seg Neutrophils % 70.2 H Seg Neuts % (Manual) Lymphocytes % (Manual) Monocytes % (Manual) Eosinophils % (Manual) Nucleated RBC % Seg Neutrophils # Seg Neutrophils # Man Lymphocytes # (Manual) Monocytes # (Manual) Eosinophils # (Manual) PT INR APTT POC ABG pH ABG pH 7.272 L POC ABG pCO2 POC ABG pO2 ABG pO2 75.7 L ABG HCO3 ABG O2 Saturation 93.8 L ABG Base Excess -3.0 L ABG Hemoglobin 7.8 L Oxyhemoglobin 91.6 L Sodium Potassium 5.2 H Chloride Carbon Dioxide BUN 96 H Creatinine 5.7 H Glucose 112 H POC Glucose Uric Acid Calcium Phosphorus Magnesium AST ALT Total Creatine Kinase CK-MB (CK-2) Troponin T NT-Pro-B Natriuret Pep Total Protein Albumin Triglycerides 173 H HDL Cholesterol Urine WBC (Auto) Urine Creatinine Urine Total Protein Vancomycin Trough 05/18/19 05/18/19 05/18/19 01:50 04:41 05:24 WBC RBC Hgb Hct MCV MCH MCHC RDW Lymph % (Auto) [place] % (Auto) Eos % (Auto) Lymph # [place] # Eos # Seg Neutrophils % Seg Neuts % (Manual) Lymphocytes % (Manual) Monocytes % (Manual) Eosinophils % (Manual) Nucleated RBC % Seg Neutrophils # Seg Neutrophils # Man Lymphocytes # (Manual) Monocytes # (Manual) Eosinophils # (Manual) PT INR APTT POC ABG pH 7.260 L ABG pH POC ABG pCO2 54.9 H POC ABG pO2 ABG pO2 ABG HCO3 ABG O2 Saturation ABG Base Excess ABG Hemoglobin Oxyhemoglobin Sodium Potassium 5.6 H Chloride Carbon Dioxide BUN 104 H Creatinine 6.6 H Glucose 107 H POC Glucose 106 H Uric Acid Calcium Phosphorus Magnesium AST ALT Total Creatine Kinase CK-MB (CK-2) Troponin T NT-Pro-B Natriuret Pep Total Protein Albumin Triglycerides HDL Cholesterol Urine WBC (Auto) Urine Creatinine Urine Total Protein Vancomycin Trough 05/18/19 05/18/19 05/19/19 11:34 23:26 04:06 WBC RBC 3.22 L Hgb 8.8 L Hct 27.3 L MCV MCH 27 L MCHC RDW 17.5 H Lymph % (Auto) [place] % (Auto) Eos % (Auto) Lymph # [place] # Eos # Seg Neutrophils % Seg Neuts % (Manual) 74.0 H Lymphocytes % (Manual) 4.0 L Monocytes % (Manual) 11.0 H Eosinophils % (Manual) 7.0 H Nucleated RBC % 1.0 H Seg Neutrophils # Seg Neutrophils # Man Lymphocytes # (Manual) 0.3 L Monocytes # (Manual) 0.9 H Eosinophils # (Manual) 0.6 H PT INR APTT POC ABG pH ABG pH POC ABG pCO2 POC ABG pO2 ABG pO2 ABG HCO3 ABG O2 Saturation ABG Base Excess ABG Hemoglobin Oxyhemoglobin Sodium Potassium Chloride Carbon Dioxide BUN Creatinine Glucose POC Glucose 152 H 112 H Uric Acid Calcium Phosphorus Magnesium AST ALT Total Creatine Kinase CK-MB (CK-2) Troponin T NT-Pro-B Natriuret Pep Total Protein Albumin Triglycerides HDL Cholesterol Urine WBC (Auto) Urine Creatinine Urine Total Protein Vancomycin Trough 05/19/19 05/19/19 05/20/19 04:06 06:00 04:00 WBC RBC 3.40 L Hgb 9.2 L Hct 28.6 L MCV MCH 27 L MCHC RDW 17.6 H Lymph % (Auto) [place] % (Auto) Eos % (Auto) Lymph # [place] # Eos # Seg Neutrophils % Seg Neuts % (Manual) Lymphocytes % (Manual) 11.0 L Monocytes % (Manual) Eosinophils % (Manual) 14.0 H Nucleated RBC % Seg Neutrophils # Seg Neutrophils # Man Lymphocytes # (Manual) 1.1 L Monocytes # (Manual) Eosinophils # (Manual) 1.4 H PT INR APTT POC ABG pH ABG pH 7.315 L POC ABG pCO2 POC ABG pO2 ABG pO2 ABG HCO3 ABG O2 Saturation ABG Base Excess ABG Hemoglobin 6.7 L Oxyhemoglobin 94.1 L Sodium Potassium 5.2 H Chloride Carbon Dioxide 21 L BUN 110 H Creatinine 7.2 H Glucose POC Glucose Uric Acid Calcium 8.3 L Phosphorus Magnesium AST ALT Total Creatine Kinase CK-MB (CK-2) Troponin T NT-Pro-B Natriuret Pep Total Protein Albumin Triglycerides HDL Cholesterol Urine WBC (Auto) Urine Creatinine Urine Total Protein Vancomycin Trough 05/20/19 05/20/19 05/20/19 04:00 05:48 12:00 WBC RBC Hgb Hct MCV MCH MCHC RDW Lymph % (Auto) [place] % (Auto) Eos % (Auto) Lymph # [place] # Eos # Seg Neutrophils % Seg Neuts % (Manual) Lymphocytes % (Manual) Monocytes % (Manual) Eosinophils % (Manual) Nucleated RBC % Seg Neutrophils # Seg Neutrophils # Man Lymphocytes # (Manual) Monocytes # (Manual) Eosinophils # (Manual) PT INR APTT POC ABG pH ABG pH 7.281 L POC ABG pCO2 POC ABG pO2 ABG pO2 78.7 L ABG HCO3 ABG O2 Saturation 94.5 L ABG Base Excess -3.0 L ABG Hemoglobin 9.9 L Oxyhemoglobin 92.5 L Sodium 136 L Potassium 5.7 H Chloride 96.3 L Carbon Dioxide BUN 125 H Creatinine 8.3 H Glucose 106 H POC Glucose Uric Acid Calcium Phosphorus Magnesium AST ALT Total Creatine Kinase CK-MB (CK-2) Troponin T NT-Pro-B Natriuret Pep Total Protein Albumin Triglycerides HDL Cholesterol Urine WBC (Auto) 26.0 H Urine Creatinine Urine Total Protein Vancomycin Trough 05/21/19 05/21/19 05/21/19 04:33 05:20 Unknown WBC RBC 3.38 L Hgb 9.1 L Hct 28.5 L MCV MCH 27 L MCHC RDW 17.4 H Lymph % (Auto) [place] % (Auto) Eos % (Auto) Lymph # [place] # Eos # Seg Neutrophils % Seg Neuts % (Manual) 71.0 H Lymphocytes % (Manual) 1.0 L Monocytes % (Manual) 11.0 H Eosinophils % (Manual) 6.0 H Nucleated RBC % Seg Neutrophils # Seg Neutrophils # Man Lymphocytes # (Manual) 0.1 L Monocytes # (Manual) 1.0 H Eosinophils # (Manual) 0.6 H PT INR APTT POC ABG pH 7.315 L ABG pH POC ABG pCO2 57.8 H POC ABG pO2 68 L ABG pO2 ABG HCO3 ABG O2 Saturation ABG Base Excess ABG Hemoglobin Oxyhemoglobin Sodium Potassium Chloride 96.3 L Carbon Dioxide BUN 102 H Creatinine 7.0 H Glucose 103 H POC Glucose Uric Acid Calcium Phosphorus Magnesium AST ALT Total Creatine Kinase CK-MB (CK-2) Troponin T NT-Pro-B Natriuret Pep Total Protein Albumin Triglycerides HDL Cholesterol Urine WBC (Auto) Urine Creatinine Urine Total Protein Vancomycin Trough 05/22/19 05/22/19 05/22/19 03:54 06:25 06:25 WBC RBC 3.22 L Hgb 8.6 L Hct 27.0 L MCV MCH 27 L MCHC RDW 17.5 H Lymph % (Auto) [place] % (Auto) 16.2 H Eos % (Auto) 10.8 H Lymph # [place] # 1.3 H Eos # 0.9 H Seg Neutrophils % Seg Neuts % (Manual) Lymphocytes % (Manual) 10.0 L Monocytes % (Manual) 13.0 H Eosinophils % (Manual) 8.0 H Nucleated RBC % Seg Neutrophils # Seg Neutrophils # Man Lymphocytes # (Manual) 0.9 L Monocytes # (Manual) 1.1 H Eosinophils # (Manual) 0.7 H PT INR APTT POC ABG pH 7.313 L ABG pH POC ABG pCO2 55.0 H POC ABG pO2 ABG pO2 ABG HCO3 ABG O2 Saturation ABG Base Excess ABG Hemoglobin Oxyhemoglobin Sodium 135 L Potassium Chloride 94.3 L Carbon Dioxide BUN 117 H Creatinine 7.8 H Glucose POC Glucose Uric Acid Calcium 8.2 L Phosphorus Magnesium AST ALT Total Creatine Kinase CK-MB (CK-2) Troponin T NT-Pro-B Natriuret Pep Total Protein Albumin Triglycerides HDL Cholesterol Urine WBC (Auto) Urine Creatinine Urine Total Protein Vancomycin Trough 05/23/19 05/24/19 05/24/19 05:21 05:00 05:00 WBC RBC 3.18 L Hgb 8.5 L Hct 26.7 L MCV MCH 27 L MCHC RDW 17.9 H Lymph % (Auto) [place] % (Auto) Eos % (Auto) Lymph # [place] # Eos # Seg Neutrophils % Seg Neuts % (Manual) Lymphocytes % (Manual) Monocytes % (Manual) Eosinophils % (Manual) Nucleated RBC % Seg Neutrophils # Seg Neutrophils # Man Lymphocytes # (Manual) Monocytes # (Manual) Eosinophils # (Manual) PT INR APTT POC ABG pH ABG pH POC ABG pCO2 49.7 H POC ABG pO2 73 L ABG pO2 ABG HCO3 ABG O2 Saturation ABG Base Excess ABG Hemoglobin Oxyhemoglobin Sodium Potassium Chloride 95.7 L Carbon Dioxide BUN 97 H Creatinine 6.5 H Glucose POC Glucose Uric Acid Calcium 8.0 L Phosphorus Magnesium AST ALT Total Creatine Kinase CK-MB (CK-2) Troponin T NT-Pro-B Natriuret Pep Total Protein Albumin Triglycerides HDL Cholesterol Urine WBC (Auto) Urine Creatinine Urine Total Protein Vancomycin Trough 05/24/19 05/25/19 05/25/19 06:17 04:22 15:45 WBC RBC 2.98 L Hgb 8.1 L Hct 24.9 L MCV MCH 27 L MCHC RDW 17.8 H Lymph % (Auto) [place] % (Auto) Eos % (Auto) Lymph # [place] # Eos # Seg Neutrophils % Seg Neuts % (Manual) Lymphocytes % (Manual) Monocytes % (Manual) Eosinophils % (Manual) Nucleated RBC % Seg Neutrophils # Seg Neutrophils # Man Lymphocytes # (Manual) Monocytes # (Manual) Eosinophils # (Manual) PT INR APTT POC ABG pH 7.330 L 7.313 L ABG pH POC ABG pCO2 52.5 H 51.1 H POC ABG pO2 77 L ABG pO2 ABG HCO3 ABG O2 Saturation ABG Base Excess ABG Hemoglobin Oxyhemoglobin Sodium Potassium Chloride Carbon Dioxide BUN Creatinine Glucose POC Glucose Uric Acid Calcium Phosphorus Magnesium AST ALT Total Creatine Kinase CK-MB (CK-2) Troponin T NT-Pro-B Natriuret Pep Total Protein Albumin Triglycerides HDL Cholesterol Urine WBC (Auto) Urine Creatinine Urine Total Protein Vancomycin Trough 05/25/19 05/26/19 05/26/19 15:45 04:13 05:00 WBC RBC 3.10 L Hgb 8.4 L Hct 26.0 L MCV MCH 27 L MCHC RDW 17.4 H Lymph % (Auto) [place] % (Auto) Eos % (Auto) Lymph # [place] # Eos # Seg Neutrophils % Seg Neuts % (Manual) Lymphocytes % (Manual) Monocytes % (Manual) Eosinophils % (Manual) Nucleated RBC % Seg Neutrophils # Seg Neutrophils # Man Lymphocytes # (Manual) Monocytes # (Manual) Eosinophils # (Manual) PT INR APTT POC ABG pH 7.295 L ABG pH POC ABG pCO2 56.5 H POC ABG pO2 63 L ABG pO2 ABG HCO3 ABG O2 Saturation ABG Base Excess ABG Hemoglobin Oxyhemoglobin Sodium 136 L Potassium Chloride 96.8 L Carbon Dioxide BUN 83 H Creatinine 5.9 H Glucose POC Glucose Uric Acid Calcium 7.6 L Phosphorus Magnesium AST ALT Total Creatine Kinase CK-MB (CK-2) Troponin T NT-Pro-B Natriuret Pep Total Protein Albumin Triglycerides HDL Cholesterol Urine WBC (Auto) Urine Creatinine Urine Total Protein Vancomycin Trough 05/26/19 05/27/19 05/28/19 05:00 04:48 04:47 WBC RBC Hgb Hct MCV MCH MCHC RDW Lymph % (Auto) [place] % (Auto) Eos % (Auto) Lymph # [place] # Eos # Seg Neutrophils % Seg Neuts % (Manual) Lymphocytes % (Manual) Monocytes % (Manual) Eosinophils % (Manual) Nucleated RBC % Seg Neutrophils # Seg Neutrophils # Man Lymphocytes # (Manual) Monocytes # (Manual) Eosinophils # (Manual) PT INR APTT POC ABG pH 7.323 L ABG pH 7.284 L POC ABG pCO2 56.2 H POC ABG pO2 ABG pO2 71.6 L ABG HCO3 ABG O2 Saturation 92.0 L ABG Base Excess ABG Hemoglobin 7.7 L Oxyhemoglobin 89.9 L Sodium 136 L Potassium Chloride 95.3 L Carbon Dioxide BUN 96 H Creatinine 6.5 H Glucose 108 H POC Glucose Uric Acid Calcium 7.6 L Phosphorus Magnesium AST ALT Total Creatine Kinase CK-MB (CK-2) Troponin T NT-Pro-B Natriuret Pep Total Protein Albumin Triglycerides HDL Cholesterol Urine WBC (Auto) Urine Creatinine Urine Total Protein Vancomycin Trough 05/28/19 05/29/19 05/29/19 12:30 12:47 23:44 WBC RBC Hgb Hct MCV MCH MCHC RDW Lymph % (Auto) [place] % (Auto) Eos % (Auto) Lymph # [place] # Eos # Seg Neutrophils % Seg Neuts % (Manual) Lymphocytes % (Manual) Monocytes % (Manual) Eosinophils % (Manual) Nucleated RBC % Seg Neutrophils # Seg Neutrophils # Man Lymphocytes # (Manual) Monocytes # (Manual) Eosinophils # (Manual) PT INR APTT POC ABG pH ABG pH POC ABG pCO2 POC ABG pO2 ABG pO2 ABG HCO3 ABG O2 Saturation ABG Base Excess ABG Hemoglobin Oxyhemoglobin Sodium 135 L Potassium Chloride 95.3 L Carbon Dioxide BUN 82 H Creatinine 6.0 H Glucose POC Glucose 136 H 159 H Uric Acid Calcium 7.5 L Phosphorus Magnesium AST ALT Total Creatine Kinase CK-MB (CK-2) Troponin T NT-Pro-B Natriuret Pep Total Protein Albumin Triglycerides HDL Cholesterol Urine WBC (Auto) Urine Creatinine Urine Total Protein Vancomycin Trough 05/30/19 05/30/19 05/30/19 04:30 05:38 12:00 WBC RBC 3.01 L Hgb 8.2 L Hct 25.3 L MCV MCH 27 L MCHC RDW 17.5 H Lymph % (Auto) [place] % (Auto) Eos % (Auto) Lymph # [place] # Eos # Seg Neutrophils % Seg Neuts % (Manual) 80.0 H Lymphocytes % (Manual) 10.0 L Monocytes % (Manual) Eosinophils % (Manual) Nucleated RBC % Seg Neutrophils # Seg Neutrophils # Man 8.0 H Lymphocytes # (Manual) 1.0 L Monocytes # (Manual) Eosinophils # (Manual) PT INR APTT POC ABG pH ABG pH POC ABG pCO2 POC ABG pO2 73 L ABG pO2 ABG HCO3 ABG O2 Saturation ABG Base Excess ABG Hemoglobin Oxyhemoglobin Sodium Potassium Chloride Carbon Dioxide BUN Creatinine Glucose POC Glucose 166 H Uric Acid Calcium Phosphorus Magnesium AST ALT Total Creatine Kinase CK-MB (CK-2) Troponin T NT-Pro-B Natriuret Pep Total Protein Albumin Triglycerides HDL Cholesterol Urine WBC (Auto) Urine Creatinine Urine Total Protein Vancomycin Trough 05/30/19 05/31/19 05/31/19 23:45 04:07 13:04 WBC 14.3 H RBC 2.88 L Hgb 7.7 L Hct 23.9 L MCV 83 L MCH 27 L MCHC RDW 17.8 H Lymph % (Auto) [place] % (Auto) Eos % (Auto) Lymph # [place] # Eos # Seg Neutrophils % Seg Neuts % (Manual) 83.0 H Lymphocytes % (Manual) 11.0 L Monocytes % (Manual) Eosinophils % (Manual) Nucleated RBC % Seg Neutrophils # Seg Neutrophils # Man 11.9 H Lymphocytes # (Manual) Monocytes # (Manual) 0.9 H Eosinophils # (Manual) PT INR APTT POC ABG pH ABG pH POC ABG pCO2 47.4 H POC ABG pO2 ABG pO2 ABG HCO3 ABG O2 Saturation ABG Base Excess ABG Hemoglobin Oxyhemoglobin Sodium Potassium Chloride Carbon Dioxide BUN Creatinine Glucose POC Glucose 209 H Uric Acid Calcium Phosphorus Magnesium AST ALT Total Creatine Kinase CK-MB (CK-2) Troponin T NT-Pro-B Natriuret Pep Total Protein Albumin Triglycerides HDL Cholesterol Urine WBC (Auto) Urine Creatinine Urine Total Protein Vancomycin Trough 05/31/19 05/31/19 06/01/19 13:04 16:42 00:15 WBC RBC Hgb Hct MCV MCH MCHC RDW Lymph % (Auto) [place] % (Auto) Eos % (Auto) Lymph # [place] # Eos # Seg Neutrophils % Seg Neuts % (Manual) Lymphocytes % (Manual) Monocytes % (Manual) Eosinophils % (Manual) Nucleated RBC % Seg Neutrophils # Seg Neutrophils # Man Lymphocytes # (Manual) Monocytes # (Manual) Eosinophils # (Manual) PT INR APTT POC ABG pH ABG pH POC ABG pCO2 POC ABG pO2 ABG pO2 ABG HCO3 ABG O2 Saturation ABG Base Excess ABG Hemoglobin Oxyhemoglobin Sodium 129 L Potassium Chloride 88.6 L Carbon Dioxide 19 L BUN 117 H Creatinine 6.7 H Glucose 205 H POC Glucose 228 H 223 H Uric Acid Calcium 7.4 L Phosphorus 7.40 H Magnesium AST 58 H ALT 149 H Total Creatine Kinase CK-MB (CK-2) Troponin T NT-Pro-B Natriuret Pep Total Protein 6.0 L Albumin 2.5 L Triglycerides HDL Cholesterol Urine WBC (Auto) Urine Creatinine Urine Total Protein Vancomycin Trough 06/01/19 06/01/19 06/01/19 04:33 05:27 12:31 WBC RBC Hgb Hct MCV MCH MCHC RDW Lymph % (Auto) [place] % (Auto) Eos % (Auto) Lymph # [place] # Eos # Seg Neutrophils % Seg Neuts % (Manual) Lymphocytes % (Manual) Monocytes % (Manual) Eosinophils % (Manual) Nucleated RBC % Seg Neutrophils # Seg Neutrophils # Man Lymphocytes # (Manual) Monocytes # (Manual) Eosinophils # (Manual) PT INR APTT POC ABG pH ABG pH POC ABG pCO2 POC ABG pO2 ABG pO2 56.9 L ABG HCO3 ABG O2 Saturation 85.9 L ABG Base Excess ABG Hemoglobin 8.1 L Oxyhemoglobin 83.6 L Sodium Potassium Chloride Carbon Dioxide BUN Creatinine Glucose POC Glucose 183 H 217 H Uric Acid Calcium Phosphorus Magnesium AST ALT Total Creatine Kinase CK-MB (CK-2) Troponin T NT-Pro-B Natriuret Pep Total Protein Albumin Triglycerides HDL Cholesterol Urine WBC (Auto) Urine Creatinine Urine Total Protein Vancomycin Trough 06/01/19 06/02/19 06/02/19 18:20 00:00 05:33 WBC RBC Hgb Hct MCV MCH MCHC RDW Lymph % (Auto) [place] % (Auto) Eos % (Auto) Lymph # [place] # Eos # Seg Neutrophils % Seg Neuts % (Manual) Lymphocytes % (Manual) Monocytes % (Manual) Eosinophils % (Manual) Nucleated RBC % Seg Neutrophils # Seg Neutrophils # Man Lymphocytes # (Manual) Monocytes # (Manual) Eosinophils # (Manual) PT INR APTT POC ABG pH ABG pH POC ABG pCO2 POC ABG pO2 ABG pO2 ABG HCO3 ABG O2 Saturation ABG Base Excess ABG Hemoglobin Oxyhemoglobin Sodium Potassium Chloride Carbon Dioxide BUN Creatinine Glucose POC Glucose 265 H 279 H 259 H Uric Acid Calcium Phosphorus Magnesium AST ALT Total Creatine Kinase CK-MB (CK-2) Troponin T NT-Pro-B Natriuret Pep Total Protein Albumin Triglycerides HDL Cholesterol Urine WBC (Auto) Urine Creatinine Urine Total Protein Vancomycin Trough 06/02/19 06/02/19 06/02/19 11:06 11:06 11:42 WBC 13.1 H RBC 2.92 L Hgb 7.9 L Hct 24.4 L MCV MCH 27 L MCHC RDW 17.4 H Lymph % (Auto) [place] % (Auto) Eos % (Auto) Lymph # [place] # Eos # Seg Neutrophils % Seg Neuts % (Manual) 78.0 H Lymphocytes % (Manual) 12.0 L Monocytes % (Manual) 10.0 H Eosinophils % (Manual) Nucleated RBC % Seg Neutrophils # Seg Neutrophils # Man 10.2 H Lymphocytes # (Manual) Monocytes # (Manual) 1.3 H Eosinophils # (Manual) PT INR APTT POC ABG pH ABG pH POC ABG pCO2 POC ABG pO2 ABG pO2 ABG HCO3 ABG O2 Saturation ABG Base Excess ABG Hemoglobin Oxyhemoglobin Sodium 135 L Potassium Chloride 94.7 L Carbon Dioxide 21 L BUN 107 H Creatinine 4.5 H Glucose 286 H POC Glucose 263 H Uric Acid Calcium 7.9 L Phosphorus 6.30 H Magnesium AST ALT 104 H Total Creatine Kinase CK-MB (CK-2) Troponin T NT-Pro-B Natriuret Pep Total Protein 6.0 L Albumin 2.7 L Triglycerides HDL Cholesterol Urine WBC (Auto) Urine Creatinine Urine Total Protein Vancomycin Trough 06/02/19 06/02/19 06/03/19 18:17 23:55 05:30 WBC RBC Hgb Hct MCV MCH MCHC RDW Lymph % (Auto) [place] % (Auto) Eos % (Auto) Lymph # [place] # Eos # Seg Neutrophils % Seg Neuts % (Manual) Lymphocytes % (Manual) Monocytes % (Manual) Eosinophils % (Manual) Nucleated RBC % Seg Neutrophils # Seg Neutrophils # Man Lymphocytes # (Manual) Monocytes # (Manual) Eosinophils # (Manual) PT INR APTT POC ABG pH ABG pH POC ABG pCO2 POC ABG pO2 ABG pO2 ABG HCO3 ABG O2 Saturation ABG Base Excess ABG Hemoglobin Oxyhemoglobin Sodium Potassium Chloride 95.1 L Carbon Dioxide 21 L BUN 119 H Creatinine 4.1 H Glucose 330 H POC Glucose 276 H 244 H Uric Acid Calcium 8.1 L Phosphorus Magnesium AST ALT 98 H Total Creatine Kinase CK-MB (CK-2) Troponin T NT-Pro-B Natriuret Pep Total Protein 5.8 L Albumin 2.8 L Triglycerides HDL Cholesterol Urine WBC (Auto) Urine Creatinine Urine Total Protein Vancomycin Trough 06/03/19 06/03/19 06/03/19 05:30 06:04 09:42 WBC 12.8 H RBC 3.01 L Hgb 8.2 L Hct 25.4 L MCV MCH 27 L MCHC RDW 17.5 H Lymph % (Auto) [place] % (Auto) Eos % (Auto) Lymph # [place] # Eos # Seg Neutrophils % Seg Neuts % (Manual) 78.0 H Lymphocytes % (Manual) 10.0 L Monocytes % (Manual) 12.0 H Eosinophils % (Manual) Nucleated RBC % Seg Neutrophils # Seg Neutrophils # Man 10.0 H Lymphocytes # (Manual) Monocytes # (Manual) 1.5 H Eosinophils # (Manual) PT INR APTT POC ABG pH ABG pH POC ABG pCO2 POC ABG pO2 ABG pO2 ABG HCO3 ABG O2 Saturation ABG Base Excess ABG Hemoglobin Oxyhemoglobin Sodium Potassium Chloride Carbon Dioxide BUN 106 H Creatinine Glucose POC Glucose 254 H Uric Acid Calcium Phosphorus Magnesium AST ALT Total Creatine Kinase CK-MB (CK-2) Troponin T NT-Pro-B Natriuret Pep Total Protein Albumin Triglycerides HDL Cholesterol Urine WBC (Auto) Urine Creatinine Urine Total Protein Vancomycin Trough 06/03/19 06/03/19 06/03/19 12:52 17:25 23:37 WBC RBC Hgb Hct MCV MCH MCHC RDW Lymph % (Auto) [place] % (Auto) Eos % (Auto) Lymph # [place] # Eos # Seg Neutrophils % Seg Neuts % (Manual) Lymphocytes % (Manual) Monocytes % (Manual) Eosinophils % (Manual) Nucleated RBC % Seg Neutrophils # Seg Neutrophils # Man Lymphocytes # (Manual) Monocytes # (Manual) Eosinophils # (Manual) PT INR APTT POC ABG pH ABG pH POC ABG pCO2 POC ABG pO2 ABG pO2 ABG HCO3 ABG O2 Saturation ABG Base Excess ABG Hemoglobin Oxyhemoglobin Sodium Potassium Chloride Carbon Dioxide BUN Creatinine Glucose POC Glucose 274 H 285 H 310 H Uric Acid Calcium Phosphorus Magnesium AST ALT Total Creatine Kinase CK-MB (CK-2) Troponin T NT-Pro-B Natriuret Pep Total Protein Albumin Triglycerides HDL Cholesterol Urine WBC (Auto) Urine Creatinine Urine Total Protein Vancomycin Trough 06/04/19 06/04/19 06/04/19 04:57 05:03 11:50 WBC RBC Hgb Hct MCV MCH MCHC RDW Lymph % (Auto) [place] % (Auto) Eos % (Auto) Lymph # [place] # Eos # Seg Neutrophils % Seg Neuts % (Manual) Lymphocytes % (Manual) Monocytes % (Manual) Eosinophils % (Manual) Nucleated RBC % Seg Neutrophils # Seg Neutrophils # Man Lymphocytes # (Manual) Monocytes # (Manual) Eosinophils # (Manual) PT INR APTT POC ABG pH 7.488 H ABG pH POC ABG pCO2 POC ABG pO2 ABG pO2 ABG HCO3 ABG O2 Saturation ABG Base Excess ABG Hemoglobin Oxyhemoglobin Sodium Potassium Chloride Carbon Dioxide BUN Creatinine Glucose POC Glucose 275 H 279 H Uric Acid Calcium Phosphorus Magnesium AST ALT Total Creatine Kinase CK-MB (CK-2) Troponin T NT-Pro-B Natriuret Pep Total Protein Albumin Triglycerides HDL Cholesterol Urine WBC (Auto) Urine Creatinine Urine Total Protein Vancomycin Trough 06/04/19 06/04/19 06/04/19 18:32 22:03 23:55 WBC RBC Hgb Hct MCV MCH MCHC RDW Lymph % (Auto) [place] % (Auto) Eos % (Auto) Lymph # [place] # Eos # Seg Neutrophils % Seg Neuts % (Manual) Lymphocytes % (Manual) Monocytes % (Manual) Eosinophils % (Manual) Nucleated RBC % Seg Neutrophils # Seg Neutrophils # Man Lymphocytes # (Manual) Monocytes # (Manual) Eosinophils # (Manual) PT INR APTT POC ABG pH ABG pH POC ABG pCO2 POC ABG pO2 ABG pO2 ABG HCO3 ABG O2 Saturation ABG Base Excess ABG Hemoglobin Oxyhemoglobin Sodium Potassium Chloride Carbon Dioxide BUN Creatinine Glucose POC Glucose 267 H 307 H 292 H Uric Acid Calcium Phosphorus Magnesium AST ALT Total Creatine Kinase CK-MB (CK-2) Troponin T NT-Pro-B Natriuret Pep Total Protein Albumin Triglycerides HDL Cholesterol Urine WBC (Auto) Urine Creatinine Urine Total Protein Vancomycin Trough 06/05/19 06/05/19 03:52 06:41 WBC RBC Hgb Hct MCV MCH MCHC RDW Lymph % (Auto) [place] % (Auto) Eos % (Auto) Lymph # [place] # Eos # Seg Neutrophils % Seg Neuts % (Manual) Lymphocytes % (Manual) Monocytes % (Manual) Eosinophils % (Manual) Nucleated RBC % Seg Neutrophils # Seg Neutrophils # Man Lymphocytes # (Manual) Monocytes # (Manual) Eosinophils # (Manual) PT INR APTT POC ABG pH 7.462 H ABG pH POC ABG pCO2 POC ABG pO2 ABG pO2 ABG HCO3 ABG O2 Saturation ABG Base Excess ABG Hemoglobin Oxyhemoglobin Sodium Potassium Chloride Carbon Dioxide BUN Creatinine Glucose POC Glucose 369 H Uric Acid Calcium Phosphorus Magnesium AST ALT Total Creatine Kinase CK-MB (CK-2) Troponin T NT-Pro-B Natriuret Pep Total Protein Albumin Triglycerides HDL Cholesterol Urine WBC (Auto) Urine Creatinine Urine Total Protein Vancomycin Trough
[2019-06-05] MEDS ORDERED: HEPARIN 10,000 UNITS/10 ML VIAL IV PRN (14:30)
--- NOTE | 2019-06-05 17:32 | Progress Note ---
Assessment and Plan - Patient Problems (1) Acute on chronic respiratory failure Current Visit: Yes Status: Acute Qualifiers: Respiratory failure complication: hypoxia Qualified Code(s): J96.21 - Acute and chronic respiratory failure with hypoxia Plan to address problem: Pulmonary team consulted, wean vent as tolerated, daily spontaneous breathing trial, sedation holiday, ABG in a.m., Pt continues to be vent dependent and unable to be weaned. continue current care. The high probability of a clinically significant, sudden or life threatening deterioration of the [pulmonary, renal, neuro, endocrine] system(s) required my full and direct attention, intervention and personal management. The aggregate critical care time was [65] minutes. This time is in addition to time spent performing reported procedures but includes the following: [x] Data Review and interpretation [x] Patient assessment and monitoring of vital signs [x] Documentation [x] Medication orders and management (2) Obesity hypoventilation syndrome Current Visit: Yes Status: Acute Plan to address problem: Supplemental oxygen, nebulizer therapy, pulse oximetry, wean vent as tolerated. (3) Morbid obesity Current Visit: Yes Status: Chronic Plan to address problem: Supportive care, poor prognosis. Outpatient bariatric surgery follow-up at discharge. (4) Cardiac arrest Current Visit: Yes Status: Acute Plan to address problem: Supportive care. Cardiology consulted, continue supportive care. (5) Anoxic brain injury Current Visit: Yes Status: Acute Plan to address problem: Neuro check, supportive care. Neurology consulted. (6) Acute kidney injury Current Visit: Yes Status: Acute Plan to address problem: Nephrology consulted, monitor urine output every shift, daily weight, serial BMP to monitor serum creatinine. Avoid nephrotoxic agents. (7) DVT prophylaxis Current Visit: Yes Status: Acute Plan to address problem: SCD to bilateral lower extremity, prophylactic Lovenox. History Interval history: 34-year-old male with acute hypoxemic and hypercapnic respiratory failure currently on ventilatory support status post cardiac arrest, and anoxic encephalopathy, obesity hypoventilation, acute kidney injury, sepsis. Patient is currently intubated and on ventilatory support and currently undergoing ICU care. Patient lab and imaging studies reviewed. Patient currently unable to be weaned from vent support. Patient has poor prognosis. No reported nursing events. Due to patient significant comorbiditiesthe patient is at high risk for decompensation. Continue current ICU management. Hospitalist Physical - Constitutional Vitals: Temp Pulse Resp BP Pulse Ox 99.7 F H 65 22 185/102 96 06/05/19 13:45 06/05/19 17:12 06/05/19 16:00 06/05/19 17:12 06/05/19 16:08 General appearance: Present: mild distress, obese - EENT Eyes: Present: miosis ENT: hearing decreased - Neck Neck: Present: supple - Respiratory Respiratory: bilateral: diminished, rhonchi - Cardiovascular Rhythm: regular Heart Sounds: Present: S1 & S2 - Extremities Extremity abnormal: edema Peripheral Pulses: within normal limits - Abdominal General gastrointestinal: soft, non-tender, non-distended - Integumentary Integumentary: Present: clear, dry - Psychiatric Psychiatric: no appropriate mood/affect, no intact judgment & insight, no memory intact - Neurologic Neurologic: no gait normal Results - Labs CBC & Chem 7: 06/03/19 05:30 06/03/19 09:42 Labs: Laboratory Last Values WBC 12.8 K/mm3 (4.5-11.0) H 06/03/19 05:30 RBC 3.01 M/mm3 (3.65-5.03) L 06/03/19 05:30 Hgb 8.2 gm/dl (11.8-15.2) L 06/03/19 05:30 Hct 25.4 % (35.5-45.6) L 06/03/19 05:30 MCV 85 fl (84-94) 06/03/19 05:30 MCH 27 pg (28-32) L 06/03/19 05:30 MCHC 32 % (32-34) 06/03/19 05:30 RDW 17.5 % (13.2-15.2) H 06/03/19 05:30 Plt Count 342 K/mm3 (140-440) 06/03/19 05:30 Lymph % (Auto) 7.9 % (13.4-35.0) L 05/18/19 01:50 [place] % (Auto) 16.2 % (0.0-7.3) H 05/22/19 06:25 Eos % (Auto) 10.8 % (0.0-4.3) H 05/22/19 06:25 Baso % (Auto) 0.2 % (0.0-1.8) 05/18/19 01:50 Lymph # 0.7 K/mm3 (1.2-5.4) L 05/18/19 01:50 [place] # 1.3 K/mm3 (0.0-0.8) H 05/22/19 06:25 Eos # 0.9 K/mm3 (0.0-0.4) H 05/22/19 06:25 Baso # 0.0 K/mm3 (0.0-0.1) 05/22/19 06:25 Add Manual Diff Complete 06/03/19 05:30 Total Counted 100 06/03/19 05:30 Seg Neutrophils % 65.5 % (40.0-70.0) 05/22/19 06:25 Seg Neuts % (Manual) 78.0 % (40.0-70.0) H 06/03/19 05:30 Band Neutrophils % 0 % 06/03/19 05:30 Lymphocytes % (Manual) 10.0 % (13.4-35.0) L 06/03/19 05:30 Reactive Lymphs % (Man) 0 % 06/03/19 05:30 Monocytes % (Manual) 12.0 % (0.0-7.3) H 06/03/19 05:30 Eosinophils % (Manual) 0 % (0.0-4.3) 06/03/19 05:30 Basophils % (Manual) 0 % (0.0-1.8) 06/03/19 05:30 Metamyelocytes % 0 % 06/03/19 05:30 Myelocytes % 0 % 06/03/19 05:30 Promyelocytes % 0 % 06/03/19 05:30 Blast Cells % 0 % 06/03/19 05:30 Nucleated RBC % Not Reportable 06/03/19 05:30 Seg Neutrophils # 5.3 K/mm3 (1.8-7.7) 05/22/19 06:25 Seg Neutrophils # Man 10.0 K/mm3 (1.8-7.7) H 06/03/19 05:30 Band Neutrophils # 0.0 K/mm3 06/03/19 05:30 Lymphocytes # (Manual) 1.3 K/mm3 (1.2-5.4) 06/03/19 05:30 Abs React Lymphs (Man) 0.0 K/mm3 06/03/19 05:30 Monocytes # (Manual) 1.5 K/mm3 (0.0-0.8) H 06/03/19 05:30 Eosinophils # (Manual) 0.0 K/mm3 (0.0-0.4) 06/03/19 05:30 Basophils # (Manual) 0.0 K/mm3 (0.0-0.1) 06/03/19 05:30 Metamyelocytes # 0.0 K/mm3 06/03/19 05:30 Myelocytes # 0.0 K/mm3 06/03/19 05:30 Promyelocytes # 0.0 K/mm3 06/03/19 05:30 Blast Cells # 0.0 K/mm3 06/03/19 05:30 WBC Morphology Not Reportable 06/03/19 05:30 Hypersegmented Neuts Not Reportable 06/03/19 05:30 Hyposegmented Neuts Not Reportable 06/03/19 05:30 Hypogranular Neuts Not Reportable 06/03/19 05:30 Smudge Cells Not Reportable 06/03/19 05:30 Toxic Granulation Not Reportable 06/03/19 05:30 Toxic Vacuolation Not Reportable 06/03/19 05:30 Dohle Bodies Not Reportable 06/03/19 05:30 [place]-Huet Anomaly Not Reportable 06/03/19 05:30 Renea Rods Not Reportable 06/03/19 05:30 Platelet Estimate Consistent w auto 06/03/19 05:30 Clumped Platelets Not Reportable 06/03/19 05:30 Plt Clumps, EDTA Not Reportable 06/03/19 05:30 Large Platelets Not Reportable 06/03/19 05:30 Giant Platelets Not Reportable 06/03/19 05:30 Platelet Satelliting Not Reportable 06/03/19 05:30 Plt Morphology Comment Not Reportable 06/03/19 05:30 RBC Morphology Not Reportable 06/03/19 05:30 Dimorphic RBCs Not Reportable 06/03/19 05:30 Polychromasia Not Reportable 06/03/19 05:30 Hypochromasia Not Reportable 06/03/19 05:30 Poikilocytosis Not Reportable 06/03/19 05:30 Anisocytosis Not Reportable 06/03/19 05:30 Microcytosis Not Reportable 06/03/19 05:30 Macrocytosis Not Reportable 06/03/19 05:30 Spherocytes Few 06/03/19 05:30 Pappenheimer Bodies Not Reportable 06/03/19 05:30 Sickle Cells Not Reportable 06/03/19 05:30 Target Cells Not Reportable 06/03/19 05:30 Tear Drop Cells Not Reportable 06/03/19 05:30 Ovalocytes Not Reportable 06/03/19 05:30 Stomatocytes Few 06/03/19 05:30 Helmet Cells Not Reportable 06/03/19 05:30 [place] Bodies Not Reportable 06/03/19 05:30 [place] Rings Not Reportable 06/03/19 05:30 [place] Cells Not Reportable 06/03/19 05:30 Bite Cells Not Reportable 06/03/19 05:30 Crenated Cell Not Reportable 06/03/19 05:30 Elliptocytes Not Reportable 06/03/19 05:30 Acanthocytes (Spur) Not Reportable 06/03/19 05:30 Rouleaux Not Reportable 06/03/19 05:30 Hemoglobin C Crystals Not Reportable 06/03/19 05:30 Schistocytes Few 06/03/19 05:30 Malaria parasites Not Reportable 06/03/19 05:30 [place] Bodies Not Reportable 06/03/19 05:30 Hem Pathologist Commnt No 06/03/19 05:30 PT 15.4 Sec. (12.2-14.9) H 05/01/19 Unknown INR 1.23 (0.87-1.13) H 05/01/19 Unknown APTT 22.7 Sec. (24.2-36.6) L 05/01/19 Unknown POC ABG pH 7.462 (7.35-7.45) H 06/05/19 03:52 ABG pH 7.375 pH Units (7.350-7.450) 06/01/19 04:33 POC ABG pCO2 39.8 (35-45) 06/05/19 03:52 ABG pCO2 42.7 mm Hg 06/01/19 04:33 POC ABG pO2 86 (80-105) 06/05/19 03:52 ABG pO2 56.9 mm Hg (80.0-90.0) L 06/01/19 04:33 POC ABG HCO3 28.4 (22-26 mml/L) 06/05/19 03:52 ABG HCO3 24.4 mmol/L (20.0-26.0) 06/01/19 04:33 POC ABG Total CO2 30 (23-27mmol/L) 06/05/19 03:52 POC ABG O2 Sat 97 06/05/19 03:52 ABG O2 Saturation 85.9 % (95.0-99.0) L 06/01/19 04:33 ABG O2 Content 9.6 (0.0-44) 06/01/19 04:33 POC ABG Base Excess 5 ((-2) - (+3)mmol/L) 06/05/19 03:52 ABG Base Excess -0.7 mmol/L (-2.0-3.0) 06/01/19 04:33 ABG Hemoglobin 8.1 gm/dl (14.0-18.0) L 06/01/19 04:33 ABG Carboxyhemoglobin 2.1 % (0.0-5.0) 06/01/19 04:33 ABG Methemoglobin 0.5 % (0.0-1.5) 06/01/19 04:33 Oxyhemoglobin 83.6 % (95.0-99.0) L 06/01/19 04:33 FiO2 30 % 06/05/19 03:52 Sodium 137 mmol/L (137-145) 06/03/19 05:30 Potassium 4.8 mmol/L (3.6-5.0) 06/03/19 05:30 Chloride 95.1 mmol/L (98-107) L 06/03/19 05:30 Carbon Dioxide 21 mmol/L (22-30) L 06/03/19 05:30 Anion Gap 26 mmol/L 06/03/19 05:30 BUN 106 mg/dL (9-20) H 06/03/19 09:42 Creatinine 4.1 mg/dL (0.8-1.5) H 06/03/19 05:30 Estimated GFR 20 ml/min 06/03/19 05:30 BUN/Creatinine Ratio 29 % 06/03/19 05:30 Glucose 330 mg/dL (75-100) H 06/03/19 05:30 POC Glucose 369 (70-105) H 06/05/19 06:41 Osmolality 327 Mosm/kg 05/07/19 13:45 Uric Acid 18.0 mg/dL (3.5-7.6) H 05/07/19 13:45 Calcium 8.1 mg/dL (8.4-10.2) L 06/03/19 05:30 Phosphorus 6.30 mg/dL (2.5-4.5) H 06/02/19 11:06 Magnesium 1.90 mg/dL (1.7-2.3) 05/31/19 13:04 Total Bilirubin 0.30 mg/dL (0.1-1.2) 06/03/19 05:30 AST 30 units/L (5-40) 06/03/19 05:30 ALT 98 units/L (7-56) H 06/03/19 05:30 Alkaline Phosphatase 90 units/L (35-129) 06/03/19 05:30 Total Creatine Kinase 131 units/L (55-170) 05/02/19 04:41 CK-MB (CK-2) 5.2 ng/mL (0.0-4.0) H 05/02/19 04:41 CK-MB (CK-2) Rel Index 3.9 (0-4) 05/02/19 04:41 Troponin T 0.067 ng/mL (0.00-0.029) H D 05/02/19 04:41 NT-Pro-B Natriuret Pep 6831 pg/mL (0-450) H 05/01/19 Unknown Total Protein 5.8 g/dL (6.3-8.2) L 06/03/19 05:30 Albumin 2.8 g/dL (3.9-5) L 06/03/19 05:30 Albumin/Globulin Ratio 0.9 % 06/03/19 05:30 Triglycerides 173 mg/dL (2-149) H 05/17/19 Unknown Cholesterol 173 mg/dL (50-199) 05/02/19 00:06 LDL Cholesterol Direct 126 mg/dL (50-130) 05/02/19 00:06 HDL Cholesterol 18 mg/dL (40-59) L 05/02/19 00:06 Cholesterol/HDL Ratio 9.61 % 05/02/19 00:06 Procalcitonin 0.54 ng/mL (<0.15) 05/03/19 11:52 Urine Color Yellow (Yellow) 05/20/19 12:00 Urine Turbidity Cloudy (Clear) 05/20/19 12:00 Urine pH 5.0 (5.0-7.0) 05/20/19 12:00 Ur Specific [place] 1.015 (1.003-1.030) 05/20/19 12:00 Urine Protein 30 mg/dl mg/dL (Negative) 05/20/19 12:00 Urine Glucose (UA) Neg mg/dL (Negative) 05/20/19 12:00 Urine Ketones Neg mg/dL (Negative) 05/20/19 12:00 Urine Blood Lg (Negative) 05/20/19 12:00 Urine Nitrite Neg (Negative) 05/20/19 12:00 Urine Bilirubin Neg (Negative) 05/20/19 12:00 Urine Urobilinogen < 2.0 mg/dL (<2.0) 05/20/19 12:00 Ur Leukocyte Esterase Mod (Negative) 05/20/19 12:00 Urine WBC (Auto) 26.0 /HPF (0.0-6.0) H 05/20/19 12:00 Urine RBC (Auto) 83.0 /HPF (0.0-6.0) 05/20/19 12:00 Urine Bacteria (Auto) 1+ /HPF (Negative) 05/20/19 12:00 Uric Acid Crystals 3+ 05/03/19 10:55 Urine Mucus Few /HPF 05/20/19 12:00 Urine Yeast (Budding) 3+ /HPF 05/20/19 12:00 Urine Creatinine 292.8 mg/dL (0.1-20.0) H 05/07/19 22:40 Urine Sodium 11 mmol/L 05/07/19 22:40 Urine Total Protein 269 mg/dL (5-11.8) H 05/07/19 22:40 Vancomycin Trough 20.5 ug/mL (5.0-20.0) H 05/15/19 09:00 Random Vancomycin 11.5 ug/mL (0-40.0) 05/27/19 06:00 AMNA Screen Negative (Negative) 05/07/19 13:45 Hepatitis A IgM Ab Non-reactive (NonReactive) 05/07/19 13:45 Hep Bs Antigen Non-reactive (Negative) 05/07/19 13:45 Hep B Core IgM Ab Non-reactive (NonReactive) 05/07/19 13:45 Hepatitis C Antibody Non-reactive (NonReactive) 05/07/19 13:45 Active Medications - Current Medications Current Medications: Generic Name Dose Route Start Last Admin Trade Name Freq PRN Reason Stop Dose Admin Albumin Human 25 gm 05/19/19 10:47 Alburx 25% (Albumin) IV ARIANE PRN Hypotension Alteplase, Recombinant 2 mg 05/25/19 09:30 05/28/19 21:15 Cathflo IV 2 mg ARIANE PRN Administration LINE FLUSH Lipase/Protease/Amylase 1 each 05/14/19 15:01 Pancreaze 10,500 Unit FEEDTUBE PRN PRN For Clogged Feeding Tube Dextrose 50 gm 05/01/19 20:24 D50w (25gm) Vial IV Q30MIN PRN Hypoglycemia Protocol Enoxaparin Sodium 30 mg 05/16/19 10:00 06/05/19 09:40 Enoxaparin SUB-Q 30 mg QDAY VICKEY Administration Epoetin [place] 10,000 unit 05/19/19 10:47 06/03/19 11:49 Procrit IV 10,000 unit ARIANE PRN Administration hemodialysis Famotidine 20 mg 05/16/19 10:00 06/05/19 09:40 Pepcid PO 20 mg DAILY VICKEY Administration Fentanyl 50 mcg 06/03/19 10:03 06/03/19 18:46 Sublimaze IV 50 mcg Q2HR PRN Administration Pain, Moderate (4-6) Heparin Sodium (Porcine) 300 unit 06/05/19 14:30 06/05/19 15:29 Heparin 10,000 Units/10 Ml IV 06/06/19 14:29 300 unit ARIANE PRN Administration hemodialysis Hydralazine HCl 20 mg 05/13/19 08:09 06/05/19 17:12 Apresoline IV 20 mg Q4HR PRN Administration SBP >/=160 Propofol 1,000 mg in 100 mls @ 7.011 mls/hr 05/03/19 04:00 06/05/19 17:12 Diprivan 10 Mg/Ml IV 0 mcg/kg/min TITR VICKEY 0 mls/hr Titration Protocol 5 MCG/KG/MIN Sodium Chloride 100 mls @ 999 mls/hr 05/19/19 10:47 05/20/19 08:14 Nacl 0.9% IV 999 mls/hr ARIANE PRN Administration Hypotension Insulin Glargine 20 units 06/04/19 22:00 06/04/19 22:20 Lantus SUB-Q 20 units QHS VICKEY Administration Insulin Human Lispro 0 unit 06/01/19 14:00 06/05/19 12:32 Humalog SUB-Q 6 unit Q6HR VICKEY Administration Protocol Labetalol HCl 100 mg 05/14/19 14:00 06/05/19 13:38 Labetalol PO 100 mg Q8HR VICKEY Administration Levetiracetam 750 mg 05/13/19 10:00 06/05/19 09:40 Keppra PO 750 mg BID VICKEY Administration Lorazepam 2 mg 05/06/19 06:22 05/10/19 16:17 Ativan IV 2 mg Q4H PRN Administration Seizures/AGITATION Methylprednisolone Sodium Succinate 125 mg 05/29/19 14:00 06/05/19 13:38 Solu-Medrol IV 125 mg Q8HR VICKEY Administration Scopolamine 1 each 05/20/19 12:00 05/20/19 12:52 Transderm-Scop TD 1 each Q72HR VICKEY Administration Simple Syrup 15 ml 05/14/19 15:01 Simple Syrup FEEDTUBE PRN PRN Hypoglycemia Simple Syrup 30 ml 05/14/19 15:01 Simple Syrup FEEDTUBE PRN PRN Hypoglycemia Sodium Bicarbonate 325 mg 05/14/19 15:01 Sodium Bicarbonate FEEDTUBE PRN PRN For Clogged Feeding Tube Nutrition/Malnutrition Assess - Dietary Evaluation Nutrition/Malnutrition Findings: Nutrition Notes Start: 05/04/19 12:54 Freq: Status: Active Protocol: Document 06/03/19 11:05 KS (Rec: 06/03/19 11:12 KS [id number]) Co-Sign 06/03/19 11:05 LP Nutrition Notes Initial or Follow up Reassessment Current Diagnosis Acute Kidney Injury,Sepsis, Respiratory Failure Other Pertinent Diagnosis on HD Current Diet Nepro 1.8 at 50 ml/hr Labs/Tests BUN 119 CR 4.1 Glu 330 POC Glu 254 Ca 8.1 Pertinent Medications Humalog Solumedrol Propofol at 7.011 ml/hr( 185kcal) Height 6 ft 4 in Weight 257.2 kg [place] Body Weight (kg) 91.81 BMI 69.0 Weight change and time frame Wt change noted. Likely due to fluid Weight Status Morbidly Obese Subjective/Other Information Pt tolerating Nepro at 50ml/hr . Pt on HD. Per MD, pt to possibly be extubated this week. Percent of energy/protein needs met: 100%/43% Burn Absent Trauma Absent Current % PO Negligible Minimum of two criteria No physical signs of malnutrition #1 Nutrition Diagnosis Inadequate oral intake Diagnosis Progress(for reassessment Continues documentation) Is patient on ventilator? Yes Is Patient Ambulatory and/or Out of Bed No REE-([place]. Jeor-confined to bed) 4342.284 Kcal/Kg value to use for calculation 8 Approximate Energy Requirements Using 2057 kcal/Kg Calculation Used for Recommendations Kcal/kg Additional Notes PRO needs: 225 g (up to 2.5 g/ kg IBW) Fluid needs: 1 ml/kcal Nutrition Intervention Change Diet Order: Continue TF Nutrition Support: Nepro 1.8 at 50 ml/hr Flush with 150ml q4h Kcal 2,160 Protein (gm) 97 Fluid (mL) 872 Goal #1 TF tolerance Goal #2 Meet at least 75% kcal/PRO needs via TF Anticipated Discharge Needs: Unable to determine at this time Follow-Up By: 06/10/19 Additional Comments Follow for TF tolerance
[2019-06-05] MEDS: cloNIDine 0.2 MG TAB PO SCH (18:22)
[2019-06-05] MEDS: INSULIN GLARGINE 100 UNITS/ML SUB-Q SCH (21:24)
[2019-06-05] MEDS ORDERED: SODIUM CHLORIDE 0.9% 1000 ML 2,000 ML ONE (22:29)
[2019-06-06] MEDS: INSULIN LISPRO 100 UNIT/ML SUB-Q SCH ×4 (00:32→18:08)
[2019-06-06] MEDS: cloNIDine 0.2 MG TAB PO SCH ×4 (00:33→18:09)
[2019-06-06] MEDS: hydrALAZINE 20 MG/1 ML INJ IV PRN ×4 (01:19→19:14)
[2019-06-06 04:59] LABS: ABG Base Excess 4.3 mmol/L (-2.0-3.0); ABG HCO3 28.1 mmol/L (20.0-26.0); ABG Methemoglobin 0.5 % (0.0-1.5); ABG Oxygen Saturation 96.2 % (95.0-99.0); ABG PCO2 39.4 mm Hg; ABG PH 7.472 pH Units (7.350-7.450); ABG PO2 76.4 mm Hg (80.0-90.0)
[2019-06-06] MEDS: methylPREDNISolone Sod Succinate 125 MG/2 ML INJ IV SCH ×2 (06:23→13:34)
--- NOTE | 2019-06-06 07:17 | Progress Note ---
Assessment and Plan - Patient Problems (1) Acute heart failure with preserved ejection fraction Current Visit: Yes Status: Acute (2) Acute kidney injury Current Visit: Yes Status: Acute (3) Acute on chronic respiratory failure Current Visit: Yes Status: Acute Qualifiers: Respiratory failure complication: hypoxia Qualified Code(s): J96.21 - Acute and chronic respiratory failure with hypoxia (4) Anemia Current Visit: Yes Status: Acute (5) Cardiac arrest Current Visit: Yes Status: Acute (6) DVT prophylaxis Current Visit: Yes Status: Acute (7) Hypercapnic respiratory failure Current Visit: Yes Status: Acute Qualifiers: Chronicity: acute on chronic Qualified Code(s): J96.22 - Acute and chronic respiratory failure with hypercapnia (8) NSVT (nonsustained ventricular tachycardia) Current Visit: Yes Status: Acute (9) Noncompliance with CPAP treatment Current Visit: Yes Status: Acute (10) Morbid obesity Current Visit: Yes Status: Chronic (11) Congestive heart failure Current Visit: Yes Status: Suspected (12) LANDON (obstructive sleep apnea) Current Visit: Yes Status: Suspected Subjective Principal diagnosis: HF; acute hypoxemic resp failure, SIRS, CARLA Interval history: on vent orally intubated Objective Vital Signs - 12hr 06/05/19 06/05/19 06/05/19 19:30 20:00 20:17 Temperature 99.2 F Pulse Rate 72 71 72 Pulse Rate [ 66 From Monitor] Respiratory 21 25 H Rate Blood Pressure 186/93 178/94 182/95 O2 Sat by Pulse 91 89 96 Oximetry 06/05/19 06/05/19 06/05/19 20:30 21:00 21:24 Temperature Pulse Rate 67 86 77 Pulse Rate [ From Monitor] Respiratory 25 H 24 Rate Blood Pressure 187/92 185/96 181/89 O2 Sat by Pulse 91 92 Oximetry 06/05/19 06/05/19 06/05/19 21:30 22:00 22:05 Temperature Pulse Rate 70 72 69 Pulse Rate [ From Monitor] Respiratory 19 21 24 Rate Blood Pressure 176/92 172/95 172/95 O2 Sat by Pulse 93 88 94 Oximetry 06/05/19 06/05/19 06/05/19 22:30 23:00 23:30 Temperature Pulse Rate 73 69 62 Pulse Rate [ From Monitor] Respiratory 26 H 25 H 17 Rate Blood Pressure 180/99 190/103 193/104 O2 Sat by Pulse 89 89 89 Oximetry 06/05/19 06/06/19 06/06/19 23:39 00:00 00:30 Temperature 99.0 F Pulse Rate 88 76 Pulse Rate [ 77 From Monitor] Respiratory 23 25 H Rate Blood Pressure 177/106 183/99 O2 Sat by Pulse 88 89 Oximetry 06/06/19 06/06/19 06/06/19 00:33 00:54 01:00 Temperature Pulse Rate 76 76 84 Pulse Rate [ From Monitor] Respiratory 19 Rate Blood Pressure 183/99 188/102 193/105 O2 Sat by Pulse 95 89 Oximetry 06/06/19 06/06/19 06/06/19 01:19 01:30 02:00 Temperature Pulse Rate 73 72 81 Pulse Rate [ From Monitor] Respiratory 19 21 Rate Blood Pressure 189/105 183/92 184/93 O2 Sat by Pulse 88 90 Oximetry 06/06/19 06/06/19 06/06/19 02:30 03:00 03:30 Temperature Pulse Rate 81 78 80 Pulse Rate [ From Monitor] Respiratory 20 22 29 H Rate Blood Pressure 178/96 179/96 176/95 O2 Sat by Pulse 89 89 87 Oximetry 06/06/19 06/06/19 06/06/19 03:36 03:54 04:00 Temperature 99.3 F Pulse Rate 74 76 Pulse Rate [ 78 From Monitor] Respiratory 24 Rate Blood Pressure 179/99 179/97 O2 Sat by Pulse 94 87 Oximetry 06/06/19 06/06/19 06/06/19 04:30 05:00 05:30 Temperature Pulse Rate 78 79 77 Pulse Rate [ From Monitor] Respiratory 29 H 30 H 28 H Rate Blood Pressure 179/99 176/97 181/95 O2 Sat by Pulse 88 89 89 Oximetry 06/06/19 06/06/19 06/06/19 06:00 06:22 06:23 Temperature Pulse Rate 74 77 77 Pulse Rate [ From Monitor] Respiratory 25 H Rate Blood Pressure 174/97 160/83 160/83 O2 Sat by Pulse 89 Oximetry Constitutional: no acute distress, other (morbidly obese male, on vent, orally intubated) Eyes: non-icteric ENT: oropharynx moist Neck: other (extremely large in circumference) Effort: normal Ascultation: Bilateral: diminished breath sounds (secondary to body habitus) Cardiovascular: regular rate and rhythm (no mrg) Gastrointestinal: normoactive bowel sounds, non-tender, other (obese) Integumentary: other (L hand is wrapped) Extremities: no cyanosis, pink and warm, other (1+ generalized edema) Neurologic: unable to assess Psychiatric: other (unable to assess) CBC and BMP: 06/03/19 05:30 06/03/19 09:42 ABG, PT/INR, D-dimer: ABG POC ABG pH 7.462 (7.35-7.45) H 06/05/19 03:52 ABG pH 7.472 pH Units (7.350-7.450) H 06/06/19 04:00 POC ABG pCO2 39.8 (35-45) 06/05/19 03:52 ABG pCO2 39.4 mm Hg 06/06/19 04:00 POC ABG pO2 86 (80-105) 06/05/19 03:52 ABG pO2 76.4 mm Hg (80.0-90.0) L 06/06/19 04:00 POC ABG HCO3 28.4 (22-26 mml/L) 06/05/19 03:52 POC ABG Total CO2 30 (23-27mmol/L) 06/05/19 03:52 POC ABG O2 Sat 97 06/05/19 03:52 ABG O2 Saturation 96.2 % (95.0-99.0) 06/06/19 04:00 PT/INR, D-dimer PT 15.4 Sec. (12.2-14.9) H 05/01/19 Unknown INR 1.23 (0.87-1.13) H 05/01/19 Unknown Abnormal lab findings: Abnormal Labs 05/01/19 05/01/19 05/01/19 17:50 19:26 22:36 WBC RBC Hgb Hct MCV MCH MCHC RDW Lymph % (Auto) [place] % (Auto) Eos % (Auto) Lymph # [place] # Eos # Seg Neutrophils % Seg Neuts % (Manual) Lymphocytes % (Manual) Monocytes % (Manual) Eosinophils % (Manual) Nucleated RBC % Seg Neutrophils # Seg Neutrophils # Man Lymphocytes # (Manual) Monocytes # (Manual) Eosinophils # (Manual) PT INR APTT POC ABG pH 7.272 L 7.331 L ABG pH POC ABG pCO2 52.8 H POC ABG pO2 ABG pO2 ABG HCO3 ABG O2 Saturation ABG Base Excess ABG Hemoglobin Oxyhemoglobin Sodium 136 L Potassium 6.5 H* Chloride 97.2 L Carbon Dioxide BUN 60 H Creatinine Glucose 113 H POC Glucose Uric Acid Calcium Phosphorus Magnesium 2.40 H AST 139 H ALT 154 H Total Creatine Kinase CK-MB (CK-2) Troponin T NT-Pro-B Natriuret Pep Total Protein Albumin 3.8 L Triglycerides HDL Cholesterol Urine WBC (Auto) Urine Creatinine Urine Total Protein Vancomycin Trough 05/01/19 05/01/19 05/01/19 Unknown Unknown Unknown WBC 16.1 H RBC Hgb Hct MCV MCH MCHC RDW 17.2 H Lymph % (Auto) [place] % (Auto) 9.6 H Eos % (Auto) Lymph # [place] # 1.5 H Eos # Seg Neutrophils % 73.0 H Seg Neuts % (Manual) Lymphocytes % (Manual) Monocytes % (Manual) Eosinophils % (Manual) Nucleated RBC % Seg Neutrophils # 11.7 H Seg Neutrophils # Man Lymphocytes # (Manual) Monocytes # (Manual) Eosinophils # (Manual) PT 15.4 H INR 1.23 H APTT 22.7 L POC ABG pH ABG pH POC ABG pCO2 POC ABG pO2 ABG pO2 ABG HCO3 ABG O2 Saturation ABG Base Excess ABG Hemoglobin Oxyhemoglobin Sodium Potassium Chloride Carbon Dioxide BUN Creatinine Glucose POC Glucose Uric Acid Calcium Phosphorus Magnesium AST ALT Total Creatine Kinase CK-MB (CK-2) Troponin T NT-Pro-B Natriuret Pep 6831 H Total Protein Albumin Triglycerides HDL Cholesterol Urine WBC (Auto) Urine Creatinine Urine Total Protein Vancomycin Trough 05/01/19 05/02/19 05/02/19 Unknown 00:06 00:06 WBC RBC Hgb Hct MCV MCH MCHC RDW Lymph % (Auto) [place] % (Auto) Eos % (Auto) Lymph # [place] # Eos # Seg Neutrophils % Seg Neuts % (Manual) Lymphocytes % (Manual) Monocytes % (Manual) Eosinophils % (Manual) Nucleated RBC % Seg Neutrophils # Seg Neutrophils # Man Lymphocytes # (Manual) Monocytes # (Manual) Eosinophils # (Manual) PT INR APTT POC ABG pH ABG pH POC ABG pCO2 POC ABG pO2 ABG pO2 ABG HCO3 ABG O2 Saturation ABG Base Excess ABG Hemoglobin Oxyhemoglobin Sodium Potassium Chloride Carbon Dioxide BUN Creatinine Glucose POC Glucose Uric Acid Calcium Phosphorus 4.90 H Magnesium AST ALT Total Creatine Kinase 226 H CK-MB (CK-2) 5.7 H Troponin T 0.044 H NT-Pro-B Natriuret Pep Total Protein Albumin Triglycerides 182 H HDL Cholesterol 18 L Urine WBC (Auto) Urine Creatinine Urine Total Protein Vancomycin Trough 05/02/19 05/02/19 05/02/19 02:08 04:40 04:41 WBC 17.6 H RBC Hgb Hct MCV MCH 27 L MCHC RDW 17.4 H Lymph % (Auto) 10.2 L [place] % (Auto) 11.0 H Eos % (Auto) Lymph # [place] # 1.9 H Eos # Seg Neutrophils % 78.0 H Seg Neuts % (Manual) Lymphocytes % (Manual) Monocytes % (Manual) Eosinophils % (Manual) Nucleated RBC % Seg Neutrophils # 13.8 H Seg Neutrophils # Man Lymphocytes # (Manual) Monocytes # (Manual) Eosinophils # (Manual) PT INR APTT POC ABG pH ABG pH POC ABG pCO2 46.8 H POC ABG pO2 63 L ABG pO2 ABG HCO3 ABG O2 Saturation ABG Base Excess ABG Hemoglobin Oxyhemoglobin Sodium Potassium Chloride 96.3 L Carbon Dioxide BUN 63 H Creatinine 1.7 H Glucose POC Glucose Uric Acid Calcium Phosphorus Magnesium AST ALT Total Creatine Kinase CK-MB (CK-2) Troponin T NT-Pro-B Natriuret Pep Total Protein Albumin Triglycerides HDL Cholesterol Urine WBC (Auto) Urine Creatinine Urine Total Protein Vancomycin Trough 05/02/19 05/02/19 05/02/19 04:41 04:41 16:05 WBC RBC Hgb Hct MCV MCH MCHC RDW Lymph % (Auto) [place] % (Auto) Eos % (Auto) Lymph # [place] # Eos # Seg Neutrophils % Seg Neuts % (Manual) Lymphocytes % (Manual) Monocytes % (Manual) Eosinophils % (Manual) Nucleated RBC % Seg Neutrophils # Seg Neutrophils # Man Lymphocytes # (Manual) Monocytes # (Manual) Eosinophils # (Manual) PT INR APTT POC ABG pH ABG pH POC ABG pCO2 POC ABG pO2 ABG pO2 66.6 L ABG HCO3 31.9 H ABG O2 Saturation 92.5 L ABG Base Excess 5.8 H ABG Hemoglobin 13.3 L Oxyhemoglobin 90.6 L Sodium Potassium Chloride 97.2 L Carbon Dioxide BUN 61 H Creatinine 1.8 H Glucose POC Glucose Uric Acid Calcium Phosphorus Magnesium AST ALT Total Creatine Kinase CK-MB (CK-2) 5.2 H Troponin T 0.067 H D NT-Pro-B Natriuret Pep Total Protein Albumin Triglycerides HDL Cholesterol Urine WBC (Auto) Urine Creatinine Urine Total Protein Vancomycin Trough 05/02/19 05/03/19 05/03/19 20:39 04:35 05:05 WBC 11.8 H RBC Hgb Hct MCV MCH 27 L MCHC 31 L RDW 17.2 H Lymph % (Auto) [place] % (Auto) Eos % (Auto) Lymph # [place] # Eos # Seg Neutrophils % Seg Neuts % (Manual) Lymphocytes % (Manual) Monocytes % (Manual) Eosinophils % (Manual) Nucleated RBC % Seg Neutrophils # Seg Neutrophils # Man Lymphocytes # (Manual) Monocytes # (Manual) Eosinophils # (Manual) PT INR APTT POC ABG pH ABG pH POC ABG pCO2 53.6 H 54.0 H POC ABG pO2 55 L 63 L ABG pO2 ABG HCO3 ABG O2 Saturation ABG Base Excess ABG Hemoglobin Oxyhemoglobin Sodium Potassium Chloride Carbon Dioxide BUN Creatinine Glucose POC Glucose Uric Acid Calcium Phosphorus Magnesium AST ALT Total Creatine Kinase CK-MB (CK-2) Troponin T NT-Pro-B Natriuret Pep Total Protein Albumin Triglycerides HDL Cholesterol Urine WBC (Auto) Urine Creatinine Urine Total Protein Vancomycin Trough 05/03/19 05/03/19 05/03/19 05:05 10:55 16:48 WBC RBC Hgb Hct MCV MCH MCHC RDW Lymph % (Auto) [place] % (Auto) Eos % (Auto) Lymph # [place] # Eos # Seg Neutrophils % Seg Neuts % (Manual) Lymphocytes % (Manual) Monocytes % (Manual) Eosinophils % (Manual) Nucleated RBC % Seg Neutrophils # Seg Neutrophils # Man Lymphocytes # (Manual) Monocytes # (Manual) Eosinophils # (Manual) PT INR APTT POC ABG pH 7.604 H ABG pH POC ABG pCO2 POC ABG pO2 58 L ABG pO2 ABG HCO3 ABG O2 Saturation ABG Base Excess ABG Hemoglobin Oxyhemoglobin Sodium Potassium Chloride Carbon Dioxide BUN 52 H Creatinine 1.9 H Glucose 103 H POC Glucose Uric Acid Calcium Phosphorus Magnesium AST ALT Total Creatine Kinase CK-MB (CK-2) Troponin T NT-Pro-B Natriuret Pep Total Protein Albumin Triglycerides HDL Cholesterol Urine WBC (Auto) 33.0 H Urine Creatinine Urine Total Protein Vancomycin Trough 05/04/19 05/04/19 05/04/19 04:49 06:50 06:50 WBC 16.0 H RBC Hgb Hct MCV MCH 27 L MCHC 31 L RDW 17.8 H Lymph % (Auto) [place] % (Auto) Eos % (Auto) Lymph # [place] # Eos # Seg Neutrophils % Seg Neuts % (Manual) Lymphocytes % (Manual) Monocytes % (Manual) Eosinophils % (Manual) Nucleated RBC % Seg Neutrophils # Seg Neutrophils # Man Lymphocytes # (Manual) Monocytes # (Manual) Eosinophils # (Manual) PT INR APTT POC ABG pH 7.273 L ABG pH POC ABG pCO2 POC ABG pO2 ABG pO2 ABG HCO3 ABG O2 Saturation ABG Base Excess ABG Hemoglobin Oxyhemoglobin Sodium 148 H Potassium 5.5 H Chloride Carbon Dioxide BUN 53 H Creatinine 3.3 H D Glucose 106 H POC Glucose Uric Acid Calcium 8.3 L Phosphorus Magnesium AST ALT Total Creatine Kinase CK-MB (CK-2) Troponin T NT-Pro-B Natriuret Pep Total Protein Albumin Triglycerides HDL Cholesterol Urine WBC (Auto) Urine Creatinine Urine Total Protein Vancomycin Trough 05/05/19 05/05/19 05/05/19 00:05 04:30 05:00 WBC RBC Hgb Hct MCV MCH MCHC RDW Lymph % (Auto) [place] % (Auto) Eos % (Auto) Lymph # [place] # Eos # Seg Neutrophils % Seg Neuts % (Manual) Lymphocytes % (Manual) Monocytes % (Manual) Eosinophils % (Manual) Nucleated RBC % Seg Neutrophils # Seg Neutrophils # Man Lymphocytes # (Manual) Monocytes # (Manual) Eosinophils # (Manual) PT INR APTT POC ABG pH 7.225 L ABG pH POC ABG pCO2 > 70 H POC ABG pO2 ABG pO2 ABG HCO3 ABG O2 Saturation ABG Base Excess ABG Hemoglobin Oxyhemoglobin Sodium 151 H Potassium 5.1 H Chloride Carbon Dioxide BUN 64 H Creatinine 3.5 H Glucose 117 H POC Glucose 141 H Uric Acid Calcium 7.5 L Phosphorus Magnesium AST 93 H ALT 65 H Total Creatine Kinase CK-MB (CK-2) Troponin T NT-Pro-B Natriuret Pep Total Protein Albumin 2.9 L Triglycerides HDL Cholesterol Urine WBC (Auto) Urine Creatinine Urine Total Protein Vancomycin Trough 05/05/19 05/05/19 05/05/19 05:00 12:02 17:46 WBC 12.0 H RBC Hgb 11.3 L Hct MCV MCH 27 L MCHC 30 L RDW 18.4 H Lymph % (Auto) 7.9 L [place] % (Auto) 10.2 H Eos % (Auto) Lymph # 1.0 L [place] # 1.2 H Eos # Seg Neutrophils % 80.8 H Seg Neuts % (Manual) Lymphocytes % (Manual) Monocytes % (Manual) Eosinophils % (Manual) Nucleated RBC % Seg Neutrophils # 9.7 H Seg Neutrophils # Man Lymphocytes # (Manual) Monocytes # (Manual) Eosinophils # (Manual) PT INR APTT POC ABG pH ABG pH POC ABG pCO2 POC ABG pO2 ABG pO2 ABG HCO3 ABG O2 Saturation ABG Base Excess ABG Hemoglobin Oxyhemoglobin Sodium Potassium Chloride Carbon Dioxide BUN Creatinine Glucose POC Glucose 125 H 112 H Uric Acid Calcium Phosphorus Magnesium AST ALT Total Creatine Kinase CK-MB (CK-2) Troponin T NT-Pro-B Natriuret Pep Total Protein Albumin Triglycerides HDL Cholesterol Urine WBC (Auto) Urine Creatinine Urine Total Protein Vancomycin Trough 05/05/19 05/06/19 05/06/19 23:42 03:58 04:45 WBC 11.4 H RBC Hgb 10.7 L Hct 34.2 L MCV MCH 27 L MCHC 31 L RDW 16.9 H Lymph % (Auto) [place] % (Auto) Eos % (Auto) Lymph # [place] # Eos # Seg Neutrophils % Seg Neuts % (Manual) Lymphocytes % (Manual) Monocytes % (Manual) Eosinophils % (Manual) Nucleated RBC % Seg Neutrophils # Seg Neutrophils # Man Lymphocytes # (Manual) Monocytes # (Manual) Eosinophils # (Manual) PT INR APTT POC ABG pH ABG pH POC ABG pCO2 62.4 H POC ABG pO2 111 H ABG pO2 ABG HCO3 ABG O2 Saturation ABG Base Excess ABG Hemoglobin Oxyhemoglobin Sodium Potassium Chloride Carbon Dioxide BUN Creatinine Glucose POC Glucose 128 H Uric Acid Calcium Phosphorus Magnesium AST ALT Total Creatine Kinase CK-MB (CK-2) Troponin T NT-Pro-B Natriuret Pep Total Protein Albumin Triglycerides HDL Cholesterol Urine WBC (Auto) Urine Creatinine Urine Total Protein Vancomycin Trough 05/06/19 05/06/19 05/06/19 04:45 05:33 12:30 WBC RBC Hgb Hct MCV MCH MCHC RDW Lymph % (Auto) [place] % (Auto) Eos % (Auto) Lymph # [place] # Eos # Seg Neutrophils % Seg Neuts % (Manual) Lymphocytes % (Manual) Monocytes % (Manual) Eosinophils % (Manual) Nucleated RBC % Seg Neutrophils # Seg Neutrophils # Man Lymphocytes # (Manual) Monocytes # (Manual) Eosinophils # (Manual) PT INR APTT POC ABG pH ABG pH POC ABG pCO2 POC ABG pO2 ABG pO2 ABG HCO3 ABG O2 Saturation ABG Base Excess ABG Hemoglobin Oxyhemoglobin Sodium 149 H Potassium Chloride Carbon Dioxide 31 H BUN 67 H Creatinine 3.2 H Glucose 125 H POC Glucose 117 H 116 H Uric Acid Calcium 7.5 L Phosphorus Magnesium AST ALT Total Creatine Kinase CK-MB (CK-2) Troponin T NT-Pro-B Natriuret Pep Total Protein Albumin Triglycerides HDL Cholesterol Urine WBC (Auto) Urine Creatinine Urine Total Protein Vancomycin Trough 05/06/19 05/06/19 05/07/19 18:34 23:16 05:22 WBC RBC Hgb Hct MCV MCH MCHC RDW Lymph % (Auto) [place] % (Auto) Eos % (Auto) Lymph # [place] # Eos # Seg Neutrophils % Seg Neuts % (Manual) Lymphocytes % (Manual) Monocytes % (Manual) Eosinophils % (Manual) Nucleated RBC % Seg Neutrophils # Seg Neutrophils # Man Lymphocytes # (Manual) Monocytes # (Manual) Eosinophils # (Manual) PT INR APTT POC ABG pH ABG pH POC ABG pCO2 POC ABG pO2 ABG pO2 ABG HCO3 ABG O2 Saturation ABG Base Excess ABG Hemoglobin Oxyhemoglobin Sodium Potassium Chloride Carbon Dioxide BUN Creatinine Glucose POC Glucose 128 H 143 H 166 H Uric Acid Calcium Phosphorus Magnesium AST ALT Total Creatine Kinase CK-MB (CK-2) Troponin T NT-Pro-B Natriuret Pep Total Protein Albumin Triglycerides HDL Cholesterol Urine WBC (Auto) Urine Creatinine Urine Total Protein Vancomycin Trough 05/07/19 05/07/19 05/07/19 06:33 07:03 09:35 WBC RBC Hgb Hct MCV MCH MCHC RDW Lymph % (Auto) [place] % (Auto) Eos % (Auto) Lymph # [place] # Eos # Seg Neutrophils % Seg Neuts % (Manual) Lymphocytes % (Manual) Monocytes % (Manual) Eosinophils % (Manual) Nucleated RBC % Seg Neutrophils # Seg Neutrophils # Man Lymphocytes # (Manual) Monocytes # (Manual) Eosinophils # (Manual) PT INR APTT POC ABG pH 7.263 L 7.288 L ABG pH POC ABG pCO2 POC ABG pO2 51 L 56 L ABG pO2 ABG HCO3 ABG O2 Saturation ABG Base Excess ABG Hemoglobin Oxyhemoglobin Sodium Potassium Chloride Carbon Dioxide BUN 76 H Creatinine 3.2 H Glucose 147 H POC Glucose Uric Acid Calcium 7.9 L Phosphorus Magnesium AST ALT Total Creatine Kinase CK-MB (CK-2) Troponin T NT-Pro-B Natriuret Pep Total Protein Albumin Triglycerides HDL Cholesterol Urine WBC (Auto) Urine Creatinine Urine Total Protein Vancomycin Trough 05/07/19 05/07/19 05/07/19 09:35 12:17 13:45 WBC 13.4 H RBC Hgb 11.6 L Hct MCV MCH 27 L MCHC 31 L RDW 17.5 H Lymph % (Auto) [place] % (Auto) Eos % (Auto) Lymph # [place] # Eos # Seg Neutrophils % Seg Neuts % (Manual) Lymphocytes % (Manual) Monocytes % (Manual) Eosinophils % (Manual) Nucleated RBC % Seg Neutrophils # Seg Neutrophils # Man Lymphocytes # (Manual) Monocytes # (Manual) Eosinophils # (Manual) PT INR APTT POC ABG pH ABG pH POC ABG pCO2 POC ABG pO2 ABG pO2 ABG HCO3 ABG O2 Saturation ABG Base Excess ABG Hemoglobin Oxyhemoglobin Sodium Potassium Chloride Carbon Dioxide BUN Creatinine Glucose POC Glucose 130 H Uric Acid 18.0 H Calcium Phosphorus Magnesium AST ALT Total Creatine Kinase CK-MB (CK-2) Troponin T NT-Pro-B Natriuret Pep Total Protein Albumin Triglycerides HDL Cholesterol Urine WBC (Auto) Urine Creatinine Urine Total Protein Vancomycin Trough 05/07/19 05/07/19 05/08/19 17:39 22:40 05:06 WBC RBC Hgb Hct MCV MCH MCHC RDW Lymph % (Auto) [place] % (Auto) Eos % (Auto) Lymph # [place] # Eos # Seg Neutrophils % Seg Neuts % (Manual) Lymphocytes % (Manual) Monocytes % (Manual) Eosinophils % (Manual) Nucleated RBC % Seg Neutrophils # Seg Neutrophils # Man Lymphocytes # (Manual) Monocytes # (Manual) Eosinophils # (Manual) PT INR APTT POC ABG pH ABG pH POC ABG pCO2 POC ABG pO2 ABG pO2 ABG HCO3 ABG O2 Saturation ABG Base Excess ABG Hemoglobin Oxyhemoglobin Sodium Potassium Chloride Carbon Dioxide BUN Creatinine Glucose POC Glucose 116 H 148 H Uric Acid Calcium Phosphorus Magnesium AST ALT Total Creatine Kinase CK-MB (CK-2) Troponin T NT-Pro-B Natriuret Pep Total Protein Albumin Triglycerides HDL Cholesterol Urine WBC (Auto) Urine Creatinine 292.8 H Urine Total Protein 269 H Vancomycin Trough 05/08/19 05/08/19 05/08/19 05:32 11:28 13:48 WBC RBC Hgb Hct MCV MCH MCHC RDW Lymph % (Auto) [place] % (Auto) Eos % (Auto) Lymph # [place] # Eos # Seg Neutrophils % Seg Neuts % (Manual) Lymphocytes % (Manual) Monocytes % (Manual) Eosinophils % (Manual) Nucleated RBC % Seg Neutrophils # Seg Neutrophils # Man Lymphocytes # (Manual) Monocytes # (Manual) Eosinophils # (Manual) PT INR APTT POC ABG pH ABG pH POC ABG pCO2 45.4 H POC ABG pO2 64 L ABG pO2 ABG HCO3 ABG O2 Saturation ABG Base Excess ABG Hemoglobin Oxyhemoglobin Sodium Potassium Chloride Carbon Dioxide BUN 73 H Creatinine 2.7 H Glucose 127 H POC Glucose 107 H Uric Acid Calcium 7.6 L Phosphorus Magnesium AST ALT Total Creatine Kinase CK-MB (CK-2) Troponin T NT-Pro-B Natriuret Pep Total Protein Albumin Triglycerides HDL Cholesterol Urine WBC (Auto) Urine Creatinine Urine Total Protein Vancomycin Trough 05/08/19 05/09/19 05/09/19 17:48 04:50 04:53 WBC RBC 3.07 L Hgb 8.5 L D Hct 29.3 L D MCV 96 H MCH MCHC 29 L RDW 18.1 H Lymph % (Auto) [place] % (Auto) Eos % (Auto) Lymph # [place] # Eos # Seg Neutrophils % Seg Neuts % (Manual) Lymphocytes % (Manual) Monocytes % (Manual) Eosinophils % (Manual) Nucleated RBC % Seg Neutrophils # Seg Neutrophils # Man Lymphocytes # (Manual) Monocytes # (Manual) Eosinophils # (Manual) PT INR APTT POC ABG pH 7.316 L ABG pH POC ABG pCO2 66.0 H POC ABG pO2 69 L ABG pO2 ABG HCO3 ABG O2 Saturation ABG Base Excess ABG Hemoglobin Oxyhemoglobin Sodium Potassium Chloride Carbon Dioxide BUN Creatinine Glucose POC Glucose 155 H Uric Acid Calcium Phosphorus Magnesium AST ALT Total Creatine Kinase CK-MB (CK-2) Troponin T NT-Pro-B Natriuret Pep Total Protein Albumin Triglycerides HDL Cholesterol Urine WBC (Auto) Urine Creatinine Urine Total Protein Vancomycin Trough 05/09/19 05/09/19 05/09/19 05:46 07:24 12:10 WBC RBC Hgb Hct MCV MCH MCHC RDW Lymph % (Auto) [place] % (Auto) Eos % (Auto) Lymph # [place] # Eos # Seg Neutrophils % Seg Neuts % (Manual) Lymphocytes % (Manual) Monocytes % (Manual) Eosinophils % (Manual) Nucleated RBC % Seg Neutrophils # Seg Neutrophils # Man Lymphocytes # (Manual) Monocytes # (Manual) Eosinophils # (Manual) PT INR APTT POC ABG pH ABG pH POC ABG pCO2 POC ABG pO2 ABG pO2 ABG HCO3 ABG O2 Saturation ABG Base Excess ABG Hemoglobin Oxyhemoglobin Sodium Potassium Chloride Carbon Dioxide BUN 73 H Creatinine 2.4 H Glucose 153 H POC Glucose 123 H 148 H Uric Acid Calcium 8.2 L Phosphorus Magnesium AST 45 H ALT Total Creatine Kinase CK-MB (CK-2) Troponin T NT-Pro-B Natriuret Pep Total Protein 6.0 L Albumin 1.9 L Triglycerides HDL Cholesterol Urine WBC (Auto) Urine Creatinine Urine Total Protein Vancomycin Trough 05/09/19 05/09/19 05/10/19 18:23 23:26 04:52 WBC RBC Hgb Hct MCV MCH MCHC RDW Lymph % (Auto) [place] % (Auto) Eos % (Auto) Lymph # [place] # Eos # Seg Neutrophils % Seg Neuts % (Manual) Lymphocytes % (Manual) Monocytes % (Manual) Eosinophils % (Manual) Nucleated RBC % Seg Neutrophils # Seg Neutrophils # Man Lymphocytes # (Manual) Monocytes # (Manual) Eosinophils # (Manual) PT INR APTT POC ABG pH 7.305 L ABG pH POC ABG pCO2 62.6 H POC ABG pO2 ABG pO2 ABG HCO3 ABG O2 Saturation ABG Base Excess ABG Hemoglobin Oxyhemoglobin Sodium Potassium Chloride Carbon Dioxide BUN Creatinine Glucose POC Glucose 147 H 121 H Uric Acid Calcium Phosphorus Magnesium AST ALT Total Creatine Kinase CK-MB (CK-2) Troponin T NT-Pro-B Natriuret Pep Total Protein Albumin Triglycerides HDL Cholesterol Urine WBC (Auto) Urine Creatinine Urine Total Protein Vancomycin Trough 05/10/19 05/10/19 05/10/19 05:00 05:00 05:50 WBC RBC Hgb 10.3 L Hct 33.7 L MCV MCH 27 L MCHC 31 L RDW 17.0 H Lymph % (Auto) [place] % (Auto) Eos % (Auto) Lymph # [place] # Eos # Seg Neutrophils % Seg Neuts % (Manual) Lymphocytes % (Manual) Monocytes % (Manual) Eosinophils % (Manual) Nucleated RBC % Seg Neutrophils # Seg Neutrophils # Man Lymphocytes # (Manual) Monocytes # (Manual) Eosinophils # (Manual) PT INR APTT POC ABG pH ABG pH POC ABG pCO2 POC ABG pO2 ABG pO2 ABG HCO3 ABG O2 Saturation ABG Base Excess ABG Hemoglobin Oxyhemoglobin Sodium 147 H Potassium Chloride Carbon Dioxide BUN 70 H Creatinine 2.6 H Glucose 155 H POC Glucose 158 H Uric Acid Calcium 8.2 L Phosphorus Magnesium AST ALT Total Creatine Kinase CK-MB (CK-2) Troponin T NT-Pro-B Natriuret Pep Total Protein 6.1 L Albumin 2.5 L Triglycerides HDL Cholesterol Urine WBC (Auto) Urine Creatinine Urine Total Protein Vancomycin Trough 05/10/19 05/11/19 05/11/19 13:14 07:26 11:40 WBC RBC Hgb Hct MCV MCH MCHC RDW Lymph % (Auto) [place] % (Auto) Eos % (Auto) Lymph # [place] # Eos # Seg Neutrophils % Seg Neuts % (Manual) Lymphocytes % (Manual) Monocytes % (Manual) Eosinophils % (Manual) Nucleated RBC % Seg Neutrophils # Seg Neutrophils # Man Lymphocytes # (Manual) Monocytes # (Manual) Eosinophils # (Manual) PT INR APTT POC ABG pH ABG pH POC ABG pCO2 48.0 H POC ABG pO2 58 L ABG pO2 ABG HCO3 ABG O2 Saturation ABG Base Excess ABG Hemoglobin Oxyhemoglobin Sodium 147 H Potassium Chloride 107.2 H Carbon Dioxide BUN 67 H Creatinine 2.6 H Glucose 121 H POC Glucose 159 H Uric Acid Calcium Phosphorus Magnesium AST ALT Total Creatine Kinase CK-MB (CK-2) Troponin T NT-Pro-B Natriuret Pep Total Protein Albumin Triglycerides HDL Cholesterol Urine WBC (Auto) Urine Creatinine Urine Total Protein Vancomycin Trough 05/11/19 05/11/19 05/12/19 18:13 23:46 04:40 WBC RBC Hgb Hct MCV MCH MCHC RDW Lymph % (Auto) [place] % (Auto) Eos % (Auto) Lymph # [place] # Eos # Seg Neutrophils % Seg Neuts % (Manual) Lymphocytes % (Manual) Monocytes % (Manual) Eosinophils % (Manual) Nucleated RBC % Seg Neutrophils # Seg Neutrophils # Man Lymphocytes # (Manual) Monocytes # (Manual) Eosinophils # (Manual) PT INR APTT POC ABG pH ABG pH 7.264 L POC ABG pCO2 POC ABG pO2 ABG pO2 66.8 L ABG HCO3 31.0 H ABG O2 Saturation 92.0 L ABG Base Excess ABG Hemoglobin 10.3 L Oxyhemoglobin 90.1 L Sodium Potassium Chloride Carbon Dioxide BUN Creatinine Glucose POC Glucose 120 H 121 H Uric Acid Calcium Phosphorus Magnesium AST ALT Total Creatine Kinase CK-MB (CK-2) Troponin T NT-Pro-B Natriuret Pep Total Protein Albumin Triglycerides HDL Cholesterol Urine WBC (Auto) Urine Creatinine Urine Total Protein Vancomycin Trough 05/12/19 05/12/19 05/12/19 04:45 04:45 11:14 WBC RBC Hgb 10.2 L Hct 32.4 L MCV MCH MCHC 31 L RDW 17.2 H Lymph % (Auto) [place] % (Auto) Eos % (Auto) Lymph # [place] # Eos # Seg Neutrophils % Seg Neuts % (Manual) Lymphocytes % (Manual) Monocytes % (Manual) Eosinophils % (Manual) Nucleated RBC % Seg Neutrophils # Seg Neutrophils # Man Lymphocytes # (Manual) Monocytes # (Manual) Eosinophils # (Manual) PT INR APTT POC ABG pH 7.284 L ABG pH POC ABG pCO2 67.8 H POC ABG pO2 ABG pO2 ABG HCO3 ABG O2 Saturation ABG Base Excess ABG Hemoglobin Oxyhemoglobin Sodium Potassium Chloride Carbon Dioxide BUN 63 H Creatinine 2.4 H Glucose 110 H POC Glucose Uric Acid Calcium Phosphorus Magnesium AST ALT Total Creatine Kinase CK-MB (CK-2) Troponin T NT-Pro-B Natriuret Pep Total Protein Albumin Triglycerides HDL Cholesterol Urine WBC (Auto) Urine Creatinine Urine Total Protein Vancomycin Trough 05/12/19 05/12/19 05/13/19 11:44 23:11 04:30 WBC RBC Hgb Hct MCV MCH MCHC RDW Lymph % (Auto) [place] % (Auto) Eos % (Auto) Lymph # [place] # Eos # Seg Neutrophils % Seg Neuts % (Manual) Lymphocytes % (Manual) Monocytes % (Manual) Eosinophils % (Manual) Nucleated RBC % Seg Neutrophils # Seg Neutrophils # Man Lymphocytes # (Manual) Monocytes # (Manual) Eosinophils # (Manual) PT INR APTT POC ABG pH ABG pH 7.288 L POC ABG pCO2 POC ABG pO2 ABG pO2 109.7 H ABG HCO3 30.9 H ABG O2 Saturation ABG Base Excess 3.2 H ABG Hemoglobin 9.6 L Oxyhemoglobin Sodium Potassium Chloride Carbon Dioxide BUN Creatinine Glucose POC Glucose 126 H 147 H Uric Acid Calcium Phosphorus Magnesium AST ALT Total Creatine Kinase CK-MB (CK-2) Troponin T NT-Pro-B Natriuret Pep Total Protein Albumin Triglycerides HDL Cholesterol Urine WBC (Auto) Urine Creatinine Urine Total Protein Vancomycin Trough 05/13/19 05/13/19 05/14/19 06:27 11:58 04:00 WBC RBC 3.16 L Hgb 9.3 L Hct 27.9 L MCV MCH MCHC RDW 17.1 H Lymph % (Auto) [place] % (Auto) Eos % (Auto) Lymph # [place] # Eos # Seg Neutrophils % Seg Neuts % (Manual) Lymphocytes % (Manual) Monocytes % (Manual) Eosinophils % (Manual) Nucleated RBC % Seg Neutrophils # Seg Neutrophils # Man Lymphocytes # (Manual) Monocytes # (Manual) Eosinophils # (Manual) PT INR APTT POC ABG pH ABG pH POC ABG pCO2 POC ABG pO2 ABG pO2 ABG HCO3 ABG O2 Saturation ABG Base Excess ABG Hemoglobin Oxyhemoglobin Sodium Potassium Chloride Carbon Dioxide BUN Creatinine Glucose POC Glucose 113 H 130 H Uric Acid Calcium Phosphorus Magnesium AST ALT Total Creatine Kinase CK-MB (CK-2) Troponin T NT-Pro-B Natriuret Pep Total Protein Albumin Triglycerides HDL Cholesterol Urine WBC (Auto) Urine Creatinine Urine Total Protein Vancomycin Trough 05/14/19 05/14/19 05/14/19 04:00 04:34 05:32 WBC RBC Hgb Hct MCV MCH MCHC RDW Lymph % (Auto) [place] % (Auto) Eos % (Auto) Lymph # [place] # Eos # Seg Neutrophils % Seg Neuts % (Manual) Lymphocytes % (Manual) Monocytes % (Manual) Eosinophils % (Manual) Nucleated RBC % Seg Neutrophils # Seg Neutrophils # Man Lymphocytes # (Manual) Monocytes # (Manual) Eosinophils # (Manual) PT INR APTT POC ABG pH 7.328 L ABG pH POC ABG pCO2 61.7 H POC ABG pO2 ABG pO2 ABG HCO3 ABG O2 Saturation ABG Base Excess ABG Hemoglobin Oxyhemoglobin Sodium 135 L D Potassium Chloride Carbon Dioxide BUN 57 H Creatinine 2.2 H Glucose 115 H POC Glucose 115 H Uric Acid Calcium 8.1 L Phosphorus Magnesium AST ALT Total Creatine Kinase CK-MB (CK-2) Troponin T NT-Pro-B Natriuret Pep Total Protein Albumin Triglycerides HDL Cholesterol Urine WBC (Auto) Urine Creatinine Urine Total Protein Vancomycin Trough 05/14/19 05/15/19 05/15/19 12:11 05:10 05:24 WBC RBC Hgb Hct MCV MCH MCHC RDW Lymph % (Auto) [place] % (Auto) Eos % (Auto) Lymph # [place] # Eos # Seg Neutrophils % Seg Neuts % (Manual) Lymphocytes % (Manual) Monocytes % (Manual) Eosinophils % (Manual) Nucleated RBC % Seg Neutrophils # Seg Neutrophils # Man Lymphocytes # (Manual) Monocytes # (Manual) Eosinophils # (Manual) PT INR APTT POC ABG pH ABG pH 7.342 L POC ABG pCO2 POC ABG pO2 ABG pO2 79.1 L ABG HCO3 28.2 H ABG O2 Saturation ABG Base Excess ABG Hemoglobin 7.0 L Oxyhemoglobin 94.4 L Sodium Potassium Chloride Carbon Dioxide BUN Creatinine Glucose POC Glucose 110 H 116 H Uric Acid Calcium Phosphorus Magnesium AST ALT Total Creatine Kinase CK-MB (CK-2) Troponin T NT-Pro-B Natriuret Pep Total Protein Albumin Triglycerides HDL Cholesterol Urine WBC (Auto) Urine Creatinine Urine Total Protein Vancomycin Trough 05/15/19 05/15/19 05/16/19 09:00 18:12 04:50 WBC RBC Hgb Hct MCV MCH MCHC RDW Lymph % (Auto) [place] % (Auto) Eos % (Auto) Lymph # [place] # Eos # Seg Neutrophils % Seg Neuts % (Manual) Lymphocytes % (Manual) Monocytes % (Manual) Eosinophils % (Manual) Nucleated RBC % Seg Neutrophils # Seg Neutrophils # Man Lymphocytes # (Manual) Monocytes # (Manual) Eosinophils # (Manual) PT INR APTT POC ABG pH ABG pH 7.250 L POC ABG pCO2 POC ABG pO2 ABG pO2 76.4 L ABG HCO3 ABG O2 Saturation 94.6 L ABG Base Excess -3.1 L ABG Hemoglobin 9.7 L Oxyhemoglobin 92.4 L Sodium Potassium Chloride Carbon Dioxide BUN Creatinine Glucose POC Glucose 110 H Uric Acid Calcium Phosphorus Magnesium AST ALT Total Creatine Kinase CK-MB (CK-2) Troponin T NT-Pro-B Natriuret Pep Total Protein Albumin Triglycerides HDL Cholesterol Urine WBC (Auto) Urine Creatinine Urine Total Protein Vancomycin Trough 20.5 H 05/16/19 05/16/19 05/17/19 05:50 05:50 04:20 WBC RBC 3.36 L 3.44 L Hgb 9.4 L 9.3 L Hct 29.1 L 29.7 L MCV MCH 27 L MCHC 31 L RDW 17.6 H 17.6 H Lymph % (Auto) [place] % (Auto) Eos % (Auto) Lymph # [place] # Eos # Seg Neutrophils % Seg Neuts % (Manual) 77.0 H Lymphocytes % (Manual) 5.0 L Monocytes % (Manual) Eosinophils % (Manual) 10.0 H Nucleated RBC % Seg Neutrophils # Seg Neutrophils # Man Lymphocytes # (Manual) 0.5 L Monocytes # (Manual) Eosinophils # (Manual) 0.9 H PT INR APTT POC ABG pH ABG pH POC ABG pCO2 POC ABG pO2 ABG pO2 ABG HCO3 ABG O2 Saturation ABG Base Excess ABG Hemoglobin Oxyhemoglobin Sodium Potassium Chloride Carbon Dioxide BUN 83 H Creatinine 4.4 H D Glucose 118 H POC Glucose Uric Acid Calcium Phosphorus Magnesium AST ALT Total Creatine Kinase CK-MB (CK-2) Troponin T NT-Pro-B Natriuret Pep Total Protein Albumin Triglycerides HDL Cholesterol Urine WBC (Auto) Urine Creatinine Urine Total Protein Vancomycin Trough 05/17/19 05/17/19 05/18/19 04:30 Unknown 01:50 WBC RBC 3.49 L Hgb 9.4 L Hct 30.0 L MCV MCH 27 L MCHC 31 L RDW 17.8 H Lymph % (Auto) 7.9 L [place] % (Auto) 15.4 H Eos % (Auto) 6.3 H Lymph # 0.7 L [place] # 1.4 H Eos # 0.6 H Seg Neutrophils % 70.2 H Seg Neuts % (Manual) Lymphocytes % (Manual) Monocytes % (Manual) Eosinophils % (Manual) Nucleated RBC % Seg Neutrophils # Seg Neutrophils # Man Lymphocytes # (Manual) Monocytes # (Manual) Eosinophils # (Manual) PT INR APTT POC ABG pH ABG pH 7.272 L POC ABG pCO2 POC ABG pO2 ABG pO2 75.7 L ABG HCO3 ABG O2 Saturation 93.8 L ABG Base Excess -3.0 L ABG Hemoglobin 7.8 L Oxyhemoglobin 91.6 L Sodium Potassium 5.2 H Chloride Carbon Dioxide BUN 96 H Creatinine 5.7 H Glucose 112 H POC Glucose Uric Acid Calcium Phosphorus Magnesium AST ALT Total Creatine Kinase CK-MB (CK-2) Troponin T NT-Pro-B Natriuret Pep Total Protein Albumin Triglycerides 173 H HDL Cholesterol Urine WBC (Auto) Urine Creatinine Urine Total Protein Vancomycin Trough 05/18/19 05/18/19 05/18/19 01:50 04:41 05:24 WBC RBC Hgb Hct MCV MCH MCHC RDW Lymph % (Auto) [place] % (Auto) Eos % (Auto) Lymph # [place] # Eos # Seg Neutrophils % Seg Neuts % (Manual) Lymphocytes % (Manual) Monocytes % (Manual) Eosinophils % (Manual) Nucleated RBC % Seg Neutrophils # Seg Neutrophils # Man Lymphocytes # (Manual) Monocytes # (Manual) Eosinophils # (Manual) PT INR APTT POC ABG pH 7.260 L ABG pH POC ABG pCO2 54.9 H POC ABG pO2 ABG pO2 ABG HCO3 ABG O2 Saturation ABG Base Excess ABG Hemoglobin Oxyhemoglobin Sodium Potassium 5.6 H Chloride Carbon Dioxide BUN 104 H Creatinine 6.6 H Glucose 107 H POC Glucose 106 H Uric Acid Calcium Phosphorus Magnesium AST ALT Total Creatine Kinase CK-MB (CK-2) Troponin T NT-Pro-B Natriuret Pep Total Protein Albumin Triglycerides HDL Cholesterol Urine WBC (Auto) Urine Creatinine Urine Total Protein Vancomycin Trough 05/18/19 05/18/19 05/19/19 11:34 23:26 04:06 WBC RBC 3.22 L Hgb 8.8 L Hct 27.3 L MCV MCH 27 L MCHC RDW 17.5 H Lymph % (Auto) [place] % (Auto) Eos % (Auto) Lymph # [place] # Eos # Seg Neutrophils % Seg Neuts % (Manual) 74.0 H Lymphocytes % (Manual) 4.0 L Monocytes % (Manual) 11.0 H Eosinophils % (Manual) 7.0 H Nucleated RBC % 1.0 H Seg Neutrophils # Seg Neutrophils # Man Lymphocytes # (Manual) 0.3 L Monocytes # (Manual) 0.9 H Eosinophils # (Manual) 0.6 H PT INR APTT POC ABG pH ABG pH POC ABG pCO2 POC ABG pO2 ABG pO2 ABG HCO3 ABG O2 Saturation ABG Base Excess ABG Hemoglobin Oxyhemoglobin Sodium Potassium Chloride Carbon Dioxide BUN Creatinine Glucose POC Glucose 152 H 112 H Uric Acid Calcium Phosphorus Magnesium AST ALT Total Creatine Kinase CK-MB (CK-2) Troponin T NT-Pro-B Natriuret Pep Total Protein Albumin Triglycerides HDL Cholesterol Urine WBC (Auto) Urine Creatinine Urine Total Protein Vancomycin Trough 05/19/19 05/19/19 05/20/19 04:06 06:00 04:00 WBC RBC 3.40 L Hgb 9.2 L Hct 28.6 L MCV MCH 27 L MCHC RDW 17.6 H Lymph % (Auto) [place] % (Auto) Eos % (Auto) Lymph # [place] # Eos # Seg Neutrophils % Seg Neuts % (Manual) Lymphocytes % (Manual) 11.0 L Monocytes % (Manual) Eosinophils % (Manual) 14.0 H Nucleated RBC % Seg Neutrophils # Seg Neutrophils # Man Lymphocytes # (Manual) 1.1 L Monocytes # (Manual) Eosinophils # (Manual) 1.4 H PT INR APTT POC ABG pH ABG pH 7.315 L POC ABG pCO2 POC ABG pO2 ABG pO2 ABG HCO3 ABG O2 Saturation ABG Base Excess ABG Hemoglobin 6.7 L Oxyhemoglobin 94.1 L Sodium Potassium 5.2 H Chloride Carbon Dioxide 21 L BUN 110 H Creatinine 7.2 H Glucose POC Glucose Uric Acid Calcium 8.3 L Phosphorus Magnesium AST ALT Total Creatine Kinase CK-MB (CK-2) Troponin T NT-Pro-B Natriuret Pep Total Protein Albumin Triglycerides HDL Cholesterol Urine WBC (Auto) Urine Creatinine Urine Total Protein Vancomycin Trough 05/20/19 05/20/19 05/20/19 04:00 05:48 12:00 WBC RBC Hgb Hct MCV MCH MCHC RDW Lymph % (Auto) [place] % (Auto) Eos % (Auto) Lymph # [place] # Eos # Seg Neutrophils % Seg Neuts % (Manual) Lymphocytes % (Manual) Monocytes % (Manual) Eosinophils % (Manual) Nucleated RBC % Seg Neutrophils # Seg Neutrophils # Man Lymphocytes # (Manual) Monocytes # (Manual) Eosinophils # (Manual) PT INR APTT POC ABG pH ABG pH 7.281 L POC ABG pCO2 POC ABG pO2 ABG pO2 78.7 L ABG HCO3 ABG O2 Saturation 94.5 L ABG Base Excess -3.0 L ABG Hemoglobin 9.9 L Oxyhemoglobin 92.5 L Sodium 136 L Potassium 5.7 H Chloride 96.3 L Carbon Dioxide BUN 125 H Creatinine 8.3 H Glucose 106 H POC Glucose Uric Acid Calcium Phosphorus Magnesium AST ALT Total Creatine Kinase CK-MB (CK-2) Troponin T NT-Pro-B Natriuret Pep Total Protein Albumin Triglycerides HDL Cholesterol Urine WBC (Auto) 26.0 H Urine Creatinine Urine Total Protein Vancomycin Trough 05/21/19 05/21/19 05/21/19 04:33 05:20 Unknown WBC RBC 3.38 L Hgb 9.1 L Hct 28.5 L MCV MCH 27 L MCHC RDW 17.4 H Lymph % (Auto) [place] % (Auto) Eos % (Auto) Lymph # [place] # Eos # Seg Neutrophils % Seg Neuts % (Manual) 71.0 H Lymphocytes % (Manual) 1.0 L Monocytes % (Manual) 11.0 H Eosinophils % (Manual) 6.0 H Nucleated RBC % Seg Neutrophils # Seg Neutrophils # Man Lymphocytes # (Manual) 0.1 L Monocytes # (Manual) 1.0 H Eosinophils # (Manual) 0.6 H PT INR APTT POC ABG pH 7.315 L ABG pH POC ABG pCO2 57.8 H POC ABG pO2 68 L ABG pO2 ABG HCO3 ABG O2 Saturation ABG Base Excess ABG Hemoglobin Oxyhemoglobin Sodium Potassium Chloride 96.3 L Carbon Dioxide BUN 102 H Creatinine 7.0 H Glucose 103 H POC Glucose Uric Acid Calcium Phosphorus Magnesium AST ALT Total Creatine Kinase CK-MB (CK-2) Troponin T NT-Pro-B Natriuret Pep Total Protein Albumin Triglycerides HDL Cholesterol Urine WBC (Auto) Urine Creatinine Urine Total Protein Vancomycin Trough 05/22/19 05/22/19 05/22/19 03:54 06:25 06:25 WBC RBC 3.22 L Hgb 8.6 L Hct 27.0 L MCV MCH 27 L MCHC RDW 17.5 H Lymph % (Auto) [place] % (Auto) 16.2 H Eos % (Auto) 10.8 H Lymph # [place] # 1.3 H Eos # 0.9 H Seg Neutrophils % Seg Neuts % (Manual) Lymphocytes % (Manual) 10.0 L Monocytes % (Manual) 13.0 H Eosinophils % (Manual) 8.0 H Nucleated RBC % Seg Neutrophils # Seg Neutrophils # Man Lymphocytes # (Manual) 0.9 L Monocytes # (Manual) 1.1 H Eosinophils # (Manual) 0.7 H PT INR APTT POC ABG pH 7.313 L ABG pH POC ABG pCO2 55.0 H POC ABG pO2 ABG pO2 ABG HCO3 ABG O2 Saturation ABG Base Excess ABG Hemoglobin Oxyhemoglobin Sodium 135 L Potassium Chloride 94.3 L Carbon Dioxide BUN 117 H Creatinine 7.8 H Glucose POC Glucose Uric Acid Calcium 8.2 L Phosphorus Magnesium AST ALT Total Creatine Kinase CK-MB (CK-2) Troponin T NT-Pro-B Natriuret Pep Total Protein Albumin Triglycerides HDL Cholesterol Urine WBC (Auto) Urine Creatinine Urine Total Protein Vancomycin Trough 05/23/19 05/24/19 05/24/19 05:21 05:00 05:00 WBC RBC 3.18 L Hgb 8.5 L Hct 26.7 L MCV MCH 27 L MCHC RDW 17.9 H Lymph % (Auto) [place] % (Auto) Eos % (Auto) Lymph # [place] # Eos # Seg Neutrophils % Seg Neuts % (Manual) Lymphocytes % (Manual) Monocytes % (Manual) Eosinophils % (Manual) Nucleated RBC % Seg Neutrophils # Seg Neutrophils # Man Lymphocytes # (Manual) Monocytes # (Manual) Eosinophils # (Manual) PT INR APTT POC ABG pH ABG pH POC ABG pCO2 49.7 H POC ABG pO2 73 L ABG pO2 ABG HCO3 ABG O2 Saturation ABG Base Excess ABG Hemoglobin Oxyhemoglobin Sodium Potassium Chloride 95.7 L Carbon Dioxide BUN 97 H Creatinine 6.5 H Glucose POC Glucose Uric Acid Calcium 8.0 L Phosphorus Magnesium AST ALT Total Creatine Kinase CK-MB (CK-2) Troponin T NT-Pro-B Natriuret Pep Total Protein Albumin Triglycerides HDL Cholesterol Urine WBC (Auto) Urine Creatinine Urine Total Protein Vancomycin Trough 05/24/19 05/25/19 05/25/19 06:17 04:22 15:45 WBC RBC 2.98 L Hgb 8.1 L Hct 24.9 L MCV MCH 27 L MCHC RDW 17.8 H Lymph % (Auto) [place] % (Auto) Eos % (Auto) Lymph # [place] # Eos # Seg Neutrophils % Seg Neuts % (Manual) Lymphocytes % (Manual) Monocytes % (Manual) Eosinophils % (Manual) Nucleated RBC % Seg Neutrophils # Seg Neutrophils # Man Lymphocytes # (Manual) Monocytes # (Manual) Eosinophils # (Manual) PT INR APTT POC ABG pH 7.330 L 7.313 L ABG pH POC ABG pCO2 52.5 H 51.1 H POC ABG pO2 77 L ABG pO2 ABG HCO3 ABG O2 Saturation ABG Base Excess ABG Hemoglobin Oxyhemoglobin Sodium Potassium Chloride Carbon Dioxide BUN Creatinine Glucose POC Glucose Uric Acid Calcium Phosphorus Magnesium AST ALT Total Creatine Kinase CK-MB (CK-2) Troponin T NT-Pro-B Natriuret Pep Total Protein Albumin Triglycerides HDL Cholesterol Urine WBC (Auto) Urine Creatinine Urine Total Protein Vancomycin Trough 05/25/19 05/26/19 05/26/19 15:45 04:13 05:00 WBC RBC 3.10 L Hgb 8.4 L Hct 26.0 L MCV MCH 27 L MCHC RDW 17.4 H Lymph % (Auto) [place] % (Auto) Eos % (Auto) Lymph # [place] # Eos # Seg Neutrophils % Seg Neuts % (Manual) Lymphocytes % (Manual) Monocytes % (Manual) Eosinophils % (Manual) Nucleated RBC % Seg Neutrophils # Seg Neutrophils # Man Lymphocytes # (Manual) Monocytes # (Manual) Eosinophils # (Manual) PT INR APTT POC ABG pH 7.295 L ABG pH POC ABG pCO2 56.5 H POC ABG pO2 63 L ABG pO2 ABG HCO3 ABG O2 Saturation ABG Base Excess ABG Hemoglobin Oxyhemoglobin Sodium 136 L Potassium Chloride 96.8 L Carbon Dioxide BUN 83 H Creatinine 5.9 H Glucose POC Glucose Uric Acid Calcium 7.6 L Phosphorus Magnesium AST ALT Total Creatine Kinase CK-MB (CK-2) Troponin T NT-Pro-B Natriuret Pep Total Protein Albumin Triglycerides HDL Cholesterol Urine WBC (Auto) Urine Creatinine Urine Total Protein Vancomycin Trough 05/26/19 05/27/19 05/28/19 05:00 04:48 04:47 WBC RBC Hgb Hct MCV MCH MCHC RDW Lymph % (Auto) [place] % (Auto) Eos % (Auto) Lymph # [place] # Eos # Seg Neutrophils % Seg Neuts % (Manual) Lymphocytes % (Manual) Monocytes % (Manual) Eosinophils % (Manual) Nucleated RBC % Seg Neutrophils # Seg Neutrophils # Man Lymphocytes # (Manual) Monocytes # (Manual) Eosinophils # (Manual) PT INR APTT POC ABG pH 7.323 L ABG pH 7.284 L POC ABG pCO2 56.2 H POC ABG pO2 ABG pO2 71.6 L ABG HCO3 ABG O2 Saturation 92.0 L ABG Base Excess ABG Hemoglobin 7.7 L Oxyhemoglobin 89.9 L Sodium 136 L Potassium Chloride 95.3 L Carbon Dioxide BUN 96 H Creatinine 6.5 H Glucose 108 H POC Glucose Uric Acid Calcium 7.6 L Phosphorus Magnesium AST ALT Total Creatine Kinase CK-MB (CK-2) Troponin T NT-Pro-B Natriuret Pep Total Protein Albumin Triglycerides HDL Cholesterol Urine WBC (Auto) Urine Creatinine Urine Total Protein Vancomycin Trough 05/28/19 05/29/19 05/29/19 12:30 12:47 23:44 WBC RBC Hgb Hct MCV MCH MCHC RDW Lymph % (Auto) [place] % (Auto) Eos % (Auto) Lymph # [place] # Eos # Seg Neutrophils % Seg Neuts % (Manual) Lymphocytes % (Manual) Monocytes % (Manual) Eosinophils % (Manual) Nucleated RBC % Seg Neutrophils # Seg Neutrophils # Man Lymphocytes # (Manual) Monocytes # (Manual) Eosinophils # (Manual) PT INR APTT POC ABG pH ABG pH POC ABG pCO2 POC ABG pO2 ABG pO2 ABG HCO3 ABG O2 Saturation ABG Base Excess ABG Hemoglobin Oxyhemoglobin Sodium 135 L Potassium Chloride 95.3 L Carbon Dioxide BUN 82 H Creatinine 6.0 H Glucose POC Glucose 136 H 159 H Uric Acid Calcium 7.5 L Phosphorus Magnesium AST ALT Total Creatine Kinase CK-MB (CK-2) Troponin T NT-Pro-B Natriuret Pep Total Protein Albumin Triglycerides HDL Cholesterol Urine WBC (Auto) Urine Creatinine Urine Total Protein Vancomycin Trough 05/30/19 05/30/19 05/30/19 04:30 05:38 12:00 WBC RBC 3.01 L Hgb 8.2 L Hct 25.3 L MCV MCH 27 L MCHC RDW 17.5 H Lymph % (Auto) [place] % (Auto) Eos % (Auto) Lymph # [place] # Eos # Seg Neutrophils % Seg Neuts % (Manual) 80.0 H Lymphocytes % (Manual) 10.0 L Monocytes % (Manual) Eosinophils % (Manual) Nucleated RBC % Seg Neutrophils # Seg Neutrophils # Man 8.0 H Lymphocytes # (Manual) 1.0 L Monocytes # (Manual) Eosinophils # (Manual) PT INR APTT POC ABG pH ABG pH POC ABG pCO2 POC ABG pO2 73 L ABG pO2 ABG HCO3 ABG O2 Saturation ABG Base Excess ABG Hemoglobin Oxyhemoglobin Sodium Potassium Chloride Carbon Dioxide BUN Creatinine Glucose POC Glucose 166 H Uric Acid Calcium Phosphorus Magnesium AST ALT Total Creatine Kinase CK-MB (CK-2) Troponin T NT-Pro-B Natriuret Pep Total Protein Albumin Triglycerides HDL Cholesterol Urine WBC (Auto) Urine Creatinine Urine Total Protein Vancomycin Trough 05/30/19 05/31/19 05/31/19 23:45 04:07 13:04 WBC 14.3 H RBC 2.88 L Hgb 7.7 L Hct 23.9 L MCV 83 L MCH 27 L MCHC RDW 17.8 H Lymph % (Auto) [place] % (Auto) Eos % (Auto) Lymph # [place] # Eos # Seg Neutrophils % Seg Neuts % (Manual) 83.0 H Lymphocytes % (Manual) 11.0 L Monocytes % (Manual) Eosinophils % (Manual) Nucleated RBC % Seg Neutrophils # Seg Neutrophils # Man 11.9 H Lymphocytes # (Manual) Monocytes # (Manual) 0.9 H Eosinophils # (Manual) PT INR APTT POC ABG pH ABG pH POC ABG pCO2 47.4 H POC ABG pO2 ABG pO2 ABG HCO3 ABG O2 Saturation ABG Base Excess ABG Hemoglobin Oxyhemoglobin Sodium Potassium Chloride Carbon Dioxide BUN Creatinine Glucose POC Glucose 209 H Uric Acid Calcium Phosphorus Magnesium AST ALT Total Creatine Kinase CK-MB (CK-2) Troponin T NT-Pro-B Natriuret Pep Total Protein Albumin Triglycerides HDL Cholesterol Urine WBC (Auto) Urine Creatinine Urine Total Protein Vancomycin Trough 05/31/19 05/31/19 06/01/19 13:04 16:42 00:15 WBC RBC Hgb Hct MCV MCH MCHC RDW Lymph % (Auto) [place] % (Auto) Eos % (Auto) Lymph # [place] # Eos # Seg Neutrophils % Seg Neuts % (Manual) Lymphocytes % (Manual) Monocytes % (Manual) Eosinophils % (Manual) Nucleated RBC % Seg Neutrophils # Seg Neutrophils # Man Lymphocytes # (Manual) Monocytes # (Manual) Eosinophils # (Manual) PT INR APTT POC ABG pH ABG pH POC ABG pCO2 POC ABG pO2 ABG pO2 ABG HCO3 ABG O2 Saturation ABG Base Excess ABG Hemoglobin Oxyhemoglobin Sodium 129 L Potassium Chloride 88.6 L Carbon Dioxide 19 L BUN 117 H Creatinine 6.7 H Glucose 205 H POC Glucose 228 H 223 H Uric Acid Calcium 7.4 L Phosphorus 7.40 H Magnesium AST 58 H ALT 149 H Total Creatine Kinase CK-MB (CK-2) Troponin T NT-Pro-B Natriuret Pep Total Protein 6.0 L Albumin 2.5 L Triglycerides HDL Cholesterol Urine WBC (Auto) Urine Creatinine Urine Total Protein Vancomycin Trough 06/01/19 06/01/19 06/01/19 04:33 05:27 12:31 WBC RBC Hgb Hct MCV MCH MCHC RDW Lymph % (Auto) [place] % (Auto) Eos % (Auto) Lymph # [place] # Eos # Seg Neutrophils % Seg Neuts % (Manual) Lymphocytes % (Manual) Monocytes % (Manual) Eosinophils % (Manual) Nucleated RBC % Seg Neutrophils # Seg Neutrophils # Man Lymphocytes # (Manual) Monocytes # (Manual) Eosinophils # (Manual) PT INR APTT POC ABG pH ABG pH POC ABG pCO2 POC ABG pO2 ABG pO2 56.9 L ABG HCO3 ABG O2 Saturation 85.9 L ABG Base Excess ABG Hemoglobin 8.1 L Oxyhemoglobin 83.6 L Sodium Potassium Chloride Carbon Dioxide BUN Creatinine Glucose POC Glucose 183 H 217 H Uric Acid Calcium Phosphorus Magnesium AST ALT Total Creatine Kinase CK-MB (CK-2) Troponin T NT-Pro-B Natriuret Pep Total Protein Albumin Triglycerides HDL Cholesterol Urine WBC (Auto) Urine Creatinine Urine Total Protein Vancomycin Trough 06/01/19 06/02/19 06/02/19 18:20 00:00 05:33 WBC RBC Hgb Hct MCV MCH MCHC RDW Lymph % (Auto) [place] % (Auto) Eos % (Auto) Lymph # [place] # Eos # Seg Neutrophils % Seg Neuts % (Manual) Lymphocytes % (Manual) Monocytes % (Manual) Eosinophils % (Manual) Nucleated RBC % Seg Neutrophils # Seg Neutrophils # Man Lymphocytes # (Manual) Monocytes # (Manual) Eosinophils # (Manual) PT INR APTT POC ABG pH ABG pH POC ABG pCO2 POC ABG pO2 ABG pO2 ABG HCO3 ABG O2 Saturation ABG Base Excess ABG Hemoglobin Oxyhemoglobin Sodium Potassium Chloride Carbon Dioxide BUN Creatinine Glucose POC Glucose 265 H 279 H 259 H Uric Acid Calcium Phosphorus Magnesium AST ALT Total Creatine Kinase CK-MB (CK-2) Troponin T NT-Pro-B Natriuret Pep Total Protein Albumin Triglycerides HDL Cholesterol Urine WBC (Auto) Urine Creatinine Urine Total Protein Vancomycin Trough 06/02/19 06/02/19 06/02/19 11:06 11:06 11:42 WBC 13.1 H RBC 2.92 L Hgb 7.9 L Hct 24.4 L MCV MCH 27 L MCHC RDW 17.4 H Lymph % (Auto) [place] % (Auto) Eos % (Auto) Lymph # [place] # Eos # Seg Neutrophils % Seg Neuts % (Manual) 78.0 H Lymphocytes % (Manual) 12.0 L Monocytes % (Manual) 10.0 H Eosinophils % (Manual) Nucleated RBC % Seg Neutrophils # Seg Neutrophils # Man 10.2 H Lymphocytes # (Manual) Monocytes # (Manual) 1.3 H Eosinophils # (Manual) PT INR APTT POC ABG pH ABG pH POC ABG pCO2 POC ABG pO2 ABG pO2 ABG HCO3 ABG O2 Saturation ABG Base Excess ABG Hemoglobin Oxyhemoglobin Sodium 135 L Potassium Chloride 94.7 L Carbon Dioxide 21 L BUN 107 H Creatinine 4.5 H Glucose 286 H POC Glucose 263 H Uric Acid Calcium 7.9 L Phosphorus 6.30 H Magnesium AST ALT 104 H Total Creatine Kinase CK-MB (CK-2) Troponin T NT-Pro-B Natriuret Pep Total Protein 6.0 L Albumin 2.7 L Triglycerides HDL Cholesterol Urine WBC (Auto) Urine Creatinine Urine Total Protein Vancomycin Trough 06/02/19 06/02/19 06/03/19 18:17 23:55 05:30 WBC RBC Hgb Hct MCV MCH MCHC RDW Lymph % (Auto) [place] % (Auto) Eos % (Auto) Lymph # [place] # Eos # Seg Neutrophils % Seg Neuts % (Manual) Lymphocytes % (Manual) Monocytes % (Manual) Eosinophils % (Manual) Nucleated RBC % Seg Neutrophils # Seg Neutrophils # Man Lymphocytes # (Manual) Monocytes # (Manual) Eosinophils # (Manual) PT INR APTT POC ABG pH ABG pH POC ABG pCO2 POC ABG pO2 ABG pO2 ABG HCO3 ABG O2 Saturation ABG Base Excess ABG Hemoglobin Oxyhemoglobin Sodium Potassium Chloride 95.1 L Carbon Dioxide 21 L BUN 119 H Creatinine 4.1 H Glucose 330 H POC Glucose 276 H 244 H Uric Acid Calcium 8.1 L Phosphorus Magnesium AST ALT 98 H Total Creatine Kinase CK-MB (CK-2) Troponin T NT-Pro-B Natriuret Pep Total Protein 5.8 L Albumin 2.8 L Triglycerides HDL Cholesterol Urine WBC (Auto) Urine Creatinine Urine Total Protein Vancomycin Trough 06/03/19 06/03/19 06/03/19 05:30 06:04 09:42 WBC 12.8 H RBC 3.01 L Hgb 8.2 L Hct 25.4 L MCV MCH 27 L MCHC RDW 17.5 H Lymph % (Auto) [place] % (Auto) Eos % (Auto) Lymph # [place] # Eos # Seg Neutrophils % Seg Neuts % (Manual) 78.0 H Lymphocytes % (Manual) 10.0 L Monocytes % (Manual) 12.0 H Eosinophils % (Manual) Nucleated RBC % Seg Neutrophils # Seg Neutrophils # Man 10.0 H Lymphocytes # (Manual) Monocytes # (Manual) 1.5 H Eosinophils # (Manual) PT INR APTT POC ABG pH ABG pH POC ABG pCO2 POC ABG pO2 ABG pO2 ABG HCO3 ABG O2 Saturation ABG Base Excess ABG Hemoglobin Oxyhemoglobin Sodium Potassium Chloride Carbon Dioxide BUN 106 H Creatinine Glucose POC Glucose 254 H Uric Acid Calcium Phosphorus Magnesium AST ALT Total Creatine Kinase CK-MB (CK-2) Troponin T NT-Pro-B Natriuret Pep Total Protein Albumin Triglycerides HDL Cholesterol Urine WBC (Auto) Urine Creatinine Urine Total Protein Vancomycin Trough 06/03/19 06/03/19 06/03/19 12:52 17:25 23:37 WBC RBC Hgb Hct MCV MCH MCHC RDW Lymph % (Auto) [place] % (Auto) Eos % (Auto) Lymph # [place] # Eos # Seg Neutrophils % Seg Neuts % (Manual) Lymphocytes % (Manual) Monocytes % (Manual) Eosinophils % (Manual) Nucleated RBC % Seg Neutrophils # Seg Neutrophils # Man Lymphocytes # (Manual) Monocytes # (Manual) Eosinophils # (Manual) PT INR APTT POC ABG pH ABG pH POC ABG pCO2 POC ABG pO2 ABG pO2 ABG HCO3 ABG O2 Saturation ABG Base Excess ABG Hemoglobin Oxyhemoglobin Sodium Potassium Chloride Carbon Dioxide BUN Creatinine Glucose POC Glucose 274 H 285 H 310 H Uric Acid Calcium Phosphorus Magnesium AST ALT Total Creatine Kinase CK-MB (CK-2) Troponin T NT-Pro-B Natriuret Pep Total Protein Albumin Triglycerides HDL Cholesterol Urine WBC (Auto) Urine Creatinine Urine Total Protein Vancomycin Trough 06/04/19 06/04/19 06/04/19 04:57 05:03 11:50 WBC RBC Hgb Hct MCV MCH MCHC RDW Lymph % (Auto) [place] % (Auto) Eos % (Auto) Lymph # [place] # Eos # Seg Neutrophils % Seg Neuts % (Manual) Lymphocytes % (Manual) Monocytes % (Manual) Eosinophils % (Manual) Nucleated RBC % Seg Neutrophils # Seg Neutrophils # Man Lymphocytes # (Manual) Monocytes # (Manual) Eosinophils # (Manual) PT INR APTT POC ABG pH 7.488 H ABG pH POC ABG pCO2 POC ABG pO2 ABG pO2 ABG HCO3 ABG O2 Saturation ABG Base Excess ABG Hemoglobin Oxyhemoglobin Sodium Potassium Chloride Carbon Dioxide BUN Creatinine Glucose POC Glucose 275 H 279 H Uric Acid Calcium Phosphorus Magnesium AST ALT Total Creatine Kinase CK-MB (CK-2) Troponin T NT-Pro-B Natriuret Pep Total Protein Albumin Triglycerides HDL Cholesterol Urine WBC (Auto) Urine Creatinine Urine Total Protein Vancomycin Trough 06/04/19 06/04/19 06/04/19 18:32 22:03 23:55 WBC RBC Hgb Hct MCV MCH MCHC RDW Lymph % (Auto) [place] % (Auto) Eos % (Auto) Lymph # [place] # Eos # Seg Neutrophils % Seg Neuts % (Manual) Lymphocytes % (Manual) Monocytes % (Manual) Eosinophils % (Manual) Nucleated RBC % Seg Neutrophils # Seg Neutrophils # Man Lymphocytes # (Manual) Monocytes # (Manual) Eosinophils # (Manual) PT INR APTT POC ABG pH ABG pH POC ABG pCO2 POC ABG pO2 ABG pO2 ABG HCO3 ABG O2 Saturation ABG Base Excess ABG Hemoglobin Oxyhemoglobin Sodium Potassium Chloride Carbon Dioxide BUN Creatinine Glucose POC Glucose 267 H 307 H 292 H Uric Acid Calcium Phosphorus Magnesium AST ALT Total Creatine Kinase CK-MB (CK-2) Troponin T NT-Pro-B Natriuret Pep Total Protein Albumin Triglycerides HDL Cholesterol Urine WBC (Auto) Urine Creatinine Urine Total Protein Vancomycin Trough 06/05/19 06/05/19 06/05/19 03:52 06:41 12:29 WBC RBC Hgb Hct MCV MCH MCHC RDW Lymph % (Auto) [place] % (Auto) Eos % (Auto) Lymph # [place] # Eos # Seg Neutrophils % Seg Neuts % (Manual) Lymphocytes % (Manual) Monocytes % (Manual) Eosinophils % (Manual) Nucleated RBC % Seg Neutrophils # Seg Neutrophils # Man Lymphocytes # (Manual) Monocytes # (Manual) Eosinophils # (Manual) PT INR APTT POC ABG pH 7.462 H ABG pH POC ABG pCO2 POC ABG pO2 ABG pO2 ABG HCO3 ABG O2 Saturation ABG Base Excess ABG Hemoglobin Oxyhemoglobin Sodium Potassium Chloride Carbon Dioxide BUN Creatinine Glucose POC Glucose 369 H 265 H Uric Acid Calcium Phosphorus Magnesium AST ALT Total Creatine Kinase CK-MB (CK-2) Troponin T NT-Pro-B Natriuret Pep Total Protein Albumin Triglycerides HDL Cholesterol Urine WBC (Auto) Urine Creatinine Urine Total Protein Vancomycin Trough 06/05/19 06/05/19 06/05/19 18:20 21:42 23:21 WBC RBC Hgb Hct MCV MCH MCHC RDW Lymph % (Auto) [place] % (Auto) Eos % (Auto) Lymph # [place] # Eos # Seg Neutrophils % Seg Neuts % (Manual) Lymphocytes % (Manual) Monocytes % (Manual) Eosinophils % (Manual) Nucleated RBC % Seg Neutrophils # Seg Neutrophils # Man Lymphocytes # (Manual) Monocytes # (Manual) Eosinophils # (Manual) PT INR APTT POC ABG pH ABG pH POC ABG pCO2 POC ABG pO2 ABG pO2 ABG HCO3 ABG O2 Saturation ABG Base Excess ABG Hemoglobin Oxyhemoglobin Sodium Potassium Chloride Carbon Dioxide BUN Creatinine Glucose POC Glucose 249 H 246 H 274 H Uric Acid Calcium Phosphorus Magnesium AST ALT Total Creatine Kinase CK-MB (CK-2) Troponin T NT-Pro-B Natriuret Pep Total Protein Albumin Triglycerides HDL Cholesterol Urine WBC (Auto) Urine Creatinine Urine Total Protein Vancomycin Trough 06/06/19 06/06/19 04:00 05:49 WBC RBC Hgb Hct MCV MCH MCHC RDW Lymph % (Auto) [place] % (Auto) Eos % (Auto) Lymph # [place] # Eos # Seg Neutrophils % Seg Neuts % (Manual) Lymphocytes % (Manual) Monocytes % (Manual) Eosinophils % (Manual) Nucleated RBC % Seg Neutrophils # Seg Neutrophils # Man Lymphocytes # (Manual) Monocytes # (Manual) Eosinophils # (Manual) PT INR APTT POC ABG pH ABG pH 7.472 H POC ABG pCO2 POC ABG pO2 ABG pO2 76.4 L ABG HCO3 28.1 H ABG O2 Saturation ABG Base Excess 4.3 H ABG Hemoglobin 12.5 L Oxyhemoglobin 93.8 L Sodium Potassium Chloride Carbon Dioxide BUN Creatinine Glucose POC Glucose 340 H Uric Acid Calcium Phosphorus Magnesium AST ALT Total Creatine Kinase CK-MB (CK-2) Troponin T NT-Pro-B Natriuret Pep Total Protein Albumin Triglycerides HDL Cholesterol Urine WBC (Auto) Urine Creatinine Urine Total Protein Vancomycin Trough
[2019-06-06] MEDS ORDERED: INSULIN GLARGINE 100 UNITS/ML SUB-Q ONE (09:00)
[2019-06-06] MEDS: levETIRAcetam 500 MG/5 ML ORAL LIQD PO SCH (09:19)
[2019-06-06] MEDS: FAMOTIDINE 20 MG TAB PO SCH (09:19)
[2019-06-06] MEDS: ENOXAPARIN 30 MG/0.3 ML INJ SUB-Q SCH (09:19)
--- NOTE | 2019-06-06 10:38 | Progress Note ---
Subjective Principal diagnosis: HF; acute hypoxemic resp failure, SIRS, CARLA Interval history: Patient was seen today for follow-up on multiple renal related issues, patient is critically ill in the ICU intubated has been currently dialysis dependent, On HD BP still high to follow blood pressure noted to be elevated patient is due for dialysis today Vitals intake output medications were reviewed Past medical history: Reviewed Family, social history: Reviewed Allergies: Reviewed Physical examination General: No acute distress Vitals: Reviewed HEENT: Oral mucosa moist no icterus Neck: Supple no thyromegaly nodular mass or JVD Chest: Clear to auscultation anteriorly Heart: Regular rate and rhythm S1-S2 heard no S3-S4 Abdomen: Soft nontender no suprapubic masses no organomegaly Extremity: Dry skin less than 1+ edema Psych: No evidence of any agitation and aggression noted Derm: No petechial rash Assessment and plan: Acute kidney injury: Multifactorial in etiology most likely due to vancomycin toxicity/ as well as likely acute tubular necrosis Patient remains intubated, he has been dialyzed on Friday schedule Tolerating dialysis treatment fairly well Dialysis access is currently a permacath which has been placed if his blood pressure remains elevated we may consider changing his blood pressure medication later in the evening Possibly would consider placing him on clonidine patch along with minoxidil Hyperphosphatemia to monitor and follow Overall prognosis remains guarded to poor due to multiple comorbidities including the SIRS, shock, respiratory failure acute renal failure encephalopathy seizure activity, cardiac arrest, obesity, congestive heart failure, malignant hypertension We'll continue to follow and make recommendation from renal standpoint Objective - Vital Signs Vital signs: Vital Signs - 12hr 06/05/19 06/05/19 06/05/19 23:00 23:30 23:39 Temperature 99.0 F Pulse Rate 69 62 Pulse Rate [ From Monitor] Respiratory 25 H 17 Rate Blood Pressure 190/103 193/104 O2 Sat by Pulse 89 89 Oximetry 06/06/19 06/06/19 06/06/19 00:00 00:30 00:33 Temperature Pulse Rate 88 76 76 Pulse Rate [ 77 From Monitor] Respiratory 23 25 H Rate Blood Pressure 177/106 183/99 183/99 O2 Sat by Pulse 88 89 Oximetry 06/06/19 06/06/19 06/06/19 00:54 01:00 01:19 Temperature Pulse Rate 76 84 73 Pulse Rate [ From Monitor] Respiratory 19 Rate Blood Pressure 188/102 193/105 189/105 O2 Sat by Pulse 95 89 Oximetry 06/06/19 06/06/19 06/06/19 01:30 02:00 02:30 Temperature Pulse Rate 72 81 81 Pulse Rate [ From Monitor] Respiratory 19 21 20 Rate Blood Pressure 183/92 184/93 178/96 O2 Sat by Pulse 88 90 89 Oximetry 06/06/19 06/06/19 06/06/19 03:00 03:30 03:36 Temperature 99.3 F Pulse Rate 78 80 Pulse Rate [ From Monitor] Respiratory 22 29 H Rate Blood Pressure 179/96 176/95 O2 Sat by Pulse 89 87 Oximetry 06/06/19 06/06/19 06/06/19 03:54 04:00 04:30 Temperature Pulse Rate 74 76 78 Pulse Rate [ 78 From Monitor] Respiratory 24 29 H Rate Blood Pressure 179/99 179/97 179/99 O2 Sat by Pulse 94 87 88 Oximetry 06/06/19 06/06/19 06/06/19 05:00 05:30 06:00 Temperature Pulse Rate 79 77 74 Pulse Rate [ From Monitor] Respiratory 30 H 28 H 25 H Rate Blood Pressure 176/97 181/95 174/97 O2 Sat by Pulse 89 89 89 Oximetry 06/06/19 06/06/19 06/06/19 06:22 06:23 06:30 Temperature Pulse Rate 77 77 72 Pulse Rate [ From Monitor] Respiratory 26 H Rate Blood Pressure 160/83 160/83 167/87 O2 Sat by Pulse 89 Oximetry 06/06/19 06/06/19 06/06/19 07:00 07:30 07:56 Temperature 99.4 F Pulse Rate 65 63 Pulse Rate [ From Monitor] Respiratory 21 25 H Rate Blood Pressure 158/87 174/94 O2 Sat by Pulse 92 92 Oximetry 06/06/19 06/06/19 06/06/19 08:00 08:28 08:30 Temperature Pulse Rate 67 77 73 Pulse Rate [ 67 From Monitor] Respiratory 27 H 34 H 30 H Rate Blood Pressure 174/96 180/97 173/94 O2 Sat by Pulse 96 96 91 Oximetry 06/06/19 06/06/19 06/06/19 09:00 09:19 09:31 Temperature Pulse Rate 74 75 79 Pulse Rate [ From Monitor] Respiratory 31 H 32 H Rate Blood Pressure 178/97 178/99 175/88 O2 Sat by Pulse 95 90 Oximetry 06/06/19 10:00 Temperature Pulse Rate 81 Pulse Rate [ From Monitor] Respiratory 29 H Rate Blood Pressure 177/88 O2 Sat by Pulse 90 Oximetry - Lab 06/06/19 11:34 06/06/19 11:34 Most recent lab results ABG pH 7.472 pH Units (7.350-7.450) H 06/06/19 04:00 ABG pCO2 39.4 mm Hg 06/06/19 04:00 ABG pO2 76.4 mm Hg (80.0-90.0) L 06/06/19 04:00 ABG HCO3 28.1 mmol/L (20.0-26.0) H 06/06/19 04:00 ABG O2 Saturation 96.2 % (95.0-99.0) 06/06/19 04:00 Calcium 8.1 mg/dL (8.4-10.2) L 06/03/19 05:30 Phosphorus 6.30 mg/dL (2.5-4.5) H 06/02/19 11:06 Magnesium 1.90 mg/dL (1.7-2.3) 05/31/19 13:04 Urine Creatinine 292.8 mg/dL (0.1-20.0) H 05/07/19 22:40 Urine Sodium 11 mmol/L 05/07/19 22:40 Urine Total Protein 269 mg/dL (5-11.8) H 05/07/19 22:40 Medications & Allergies - Medications Allergies/Adverse Reactions: Allergies No Known Allergies Allergy (Verified 05/01/19 20:27) Home Medications: Home Medications Medication Instructions Recorded Confirmed Last Taken Type No Known Home Medications [No 05/03/19 05/03/19 Unknown History Reported Home Medications] Active Medications: Generic Name Dose Route Start Last Admin Trade Name Freq PRN Reason Stop Dose Admin Albumin Human 25 gm 05/19/19 10:47 Alburx 25% (Albumin) IV ARIANE PRN Hypotension Alteplase, Recombinant 2 mg 05/25/19 09:30 05/28/19 21:15 Cathflo IV 2 mg ARIANE PRN Administration LINE FLUSH Lipase/Protease/Amylase 1 each 05/14/19 15:01 Pancreaze 10,500 Unit FEEDTUBE PRN PRN For Clogged Feeding Tube Clonidine HCl 0.2 mg 06/05/19 18:00 06/06/19 06:22 Catapres PO 0.2 mg Q6H VICKEY Administration Dextrose 50 gm 05/01/19 20:24 D50w (25gm) Vial IV Q30MIN PRN Hypoglycemia Protocol Enoxaparin Sodium 30 mg 05/16/19 10:00 06/06/19 09:19 Enoxaparin SUB-Q 30 mg QDAY VICKEY Administration Epoetin Hugo 10,000 unit 05/19/19 10:47 06/03/19 11:49 Procrit IV 10,000 unit ARIANE PRN Administration hemodialysis Famotidine 20 mg 05/16/19 10:00 06/06/19 09:19 Pepcid PO 20 mg DAILY VICKEY Administration Fentanyl 50 mcg 06/03/19 10:03 06/03/19 18:46 Sublimaze IV 50 mcg Q2HR PRN Administration Pain, Moderate (4-6) Heparin Sodium (Porcine) 300 unit 06/05/19 14:30 06/05/19 15:29 Heparin 10,000 Units/10 Ml IV 06/06/19 14:29 300 unit ARIANE PRN Administration hemodialysis Hydralazine HCl 20 mg 05/13/19 08:09 06/06/19 09:19 Apresoline IV 20 mg Q4HR PRN Administration SBP >/=160 Propofol 1,000 mg in 100 mls @ 7.011 mls/hr 05/03/19 04:00 06/06/19 09:56 Diprivan 10 Mg/Ml IV 0 mcg/kg/min TITR VICKEY 0 mls/hr Titration Protocol 5 MCG/KG/MIN Sodium Chloride 100 mls @ 999 mls/hr 05/19/19 10:47 05/20/19 08:14 Nacl 0.9% IV 999 mls/hr ARIANE PRN Administration Hypotension Insulin Glargine 30 units 06/06/19 22:00 Lantus SUB-Q QHS [facility] Insulin Human Lispro 0 unit 06/01/19 14:00 06/06/19 06:22 Humalog SUB-Q 8 unit Q6HR VICKEY Administration Protocol Labetalol HCl 100 mg 05/14/19 14:00 06/06/19 06:23 Labetalol PO 100 mg Q8HR VICKEY Administration Levetiracetam 750 mg 05/13/19 10:00 06/06/19 09:19 Keppra PO 750 mg BID VICKEY Administration Lorazepam 2 mg 05/06/19 06:22 05/10/19 16:17 Ativan IV 2 mg Q4H PRN Administration Seizures/AGITATION Methylprednisolone Sodium Succinate 80 mg 06/06/19 14:00 Solu-Medrol IV Q8HR VICKEY Scopolamine 1 each 05/20/19 12:00 05/20/19 12:52 Transderm-Scop TD 1 each Q72HR VICKEY Administration Simple Syrup 15 ml 05/14/19 15:01 Simple Syrup FEEDTUBE PRN PRN Hypoglycemia Simple Syrup 30 ml 05/14/19 15:01 Simple Syrup FEEDTUBE PRN PRN Hypoglycemia Sodium Bicarbonate 325 mg 05/14/19 15:01 Sodium Bicarbonate FEEDTUBE PRN PRN For Clogged Feeding Tube
[2019-06-06 12:04] LABS: Hematocrit 30.3 % (35.5-45.6); Hemoglobin 9.5 gm/dl (11.8-15.2); Mean Corpuscular HGB Conc 31 % (32-34); Mean Corpuscular Volume 86 fl (84-94); Platelet Count 302 K/mm3 (140-440); Red Blood Count 3.53 M/mm3 (3.65-5.03); Red Cell Distribution Width 19.5 % (13.2-15.2)
[2019-06-06 12:17] LABS: Alanine Aminotransferase 75 units/L (7-56); Albumin 2.9 g/dL (3.9-5); BUN/Creatinine Ratio 47; Blood Urea Nitrogen 70 mg/dL (9-20); Calcium 8.3 mg/dL (8.4-10.2); Hemolysis Index 5
[2019-06-06 13:12] LABS: Band Neutrophils # (Manual) 0.2 K/mm3; Basophils % (Manual) 0 % (0.0-1.8); Eosinophils % (Manual) 0 % (0.0-4.3); Total Cells Counted 100
[2019-06-06 13:15] LABS: Platelet Estimate Consistent w Auto; Tear Drop Cells Few
--- NOTE | 2019-06-06 13:48 | Progress Note ---
Assessment and Plan - Patient Problems (1) Acute on chronic respiratory failure Current Visit: Yes Status: Acute Qualifiers: Respiratory failure complication: hypoxia Qualified Code(s): J96.21 - Acute and chronic respiratory failure with hypoxia Plan to address problem: Pulmonary team consulted, wean vent as tolerated, daily spontaneous breathing trial, sedation holiday, ABG in a.m., Pt continues to be vent dependent and unable to be weaned. continue current care. The high probability of a clinically significant, sudden or life threatening deterioration of the [pulmonary, renal, neuro, endocrine] system(s) required my full and direct attention, intervention and personal management. The aggregate critical care time was [65] minutes. This time is in addition to time spent performing reported procedures but includes the following: [x] Data Review and interpretation [x] Patient assessment and monitoring of vital signs [x] Documentation [x] Medication orders and management (2) Obesity hypoventilation syndrome Current Visit: Yes Status: Acute Plan to address problem: Supplemental oxygen, nebulizer therapy, pulse oximetry, wean vent as tolerated. (3) Morbid obesity Current Visit: Yes Status: Chronic Plan to address problem: Supportive care, poor prognosis. Outpatient bariatric surgery follow-up at discharge. (4) Cardiac arrest Current Visit: Yes Status: Acute Plan to address problem: Supportive care. Cardiology consulted, continue supportive care. (5) Anoxic brain injury Current Visit: Yes Status: Acute Plan to address problem: Neuro check, supportive care. Neurology consulted. (6) Acute kidney injury Current Visit: Yes Status: Acute Plan to address problem: Nephrology consulted, monitor urine output every shift, daily weight, serial BMP to monitor serum creatinine. Avoid nephrotoxic agents. (7) DVT prophylaxis Current Visit: Yes Status: Acute Plan to address problem: SCD to bilateral lower extremity, prophylactic Lovenox. History Interval history: 34-year-old male with acute hypoxemic and hypercapnic respiratory failure currently on ventilatory support status post cardiac arrest, and anoxic encephalopathy, obesity hypoventilation, acute kidney injury, sepsis. Patient is currently intubated and on ventilatory support and currently undergoing ICU care. Patient lab and imaging studies reviewed. Patient currently unable to be weaned from vent support. Patient continues to have poor prognosis. No reported nursing events. Due to patient significant comorbiditiesthe patient is at high risk for decompensation. Continue current ICU management. Hospitalist Physical - Constitutional Vitals: Temp Pulse Resp BP Pulse Ox 98.7 F 80 27 H 168/87 90 06/06/19 12:00 06/06/19 13:34 06/06/19 12:01 06/06/19 13:34 06/06/19 12:01 General appearance: Present: mild distress, obese - EENT Eyes: Present: miosis - Neck Neck: Present: supple - Respiratory Respiratory effort: labored Respiratory: bilateral: diminished, rhonchi - Cardiovascular Rhythm: regular Heart Sounds: Present: S1 & S2 - Extremities Extremity abnormal: edema - Abdominal General gastrointestinal: soft, non-tender, non-distended - Integumentary Integumentary: Present: clear, dry, clammy - Psychiatric Psychiatric: no appropriate mood/affect, no intact judgment & insight, no memory intact - Neurologic Neurologic: no gait normal Results - Labs CBC & Chem 7: 06/06/19 11:34 06/06/19 11:34 Labs: Laboratory Last Values WBC 18.1 K/mm3 (4.5-11.0) H 06/06/19 11:34 RBC 3.53 M/mm3 (3.65-5.03) L 06/06/19 11:34 Hgb 9.5 gm/dl (11.8-15.2) L 06/06/19 11:34 Hct 30.3 % (35.5-45.6) L 06/06/19 11:34 MCV 86 fl (84-94) 06/06/19 11:34 MCH 27 pg (28-32) L 06/06/19 11:34 MCHC 31 % (32-34) L 06/06/19 11:34 RDW 19.5 % (13.2-15.2) H 06/06/19 11:34 Plt Count 302 K/mm3 (140-440) 06/06/19 11:34 Lymph % (Auto) 7.9 % (13.4-35.0) L 05/18/19 01:50 M[place]reary % (Auto) 16.2 % (0.0-7.3) H 05/22/19 06:25 Eos % (Auto) 10.8 % (0.0-4.3) H 05/22/19 06:25 Baso % (Auto) 0.2 % (0.0-1.8) 05/18/19 01:50 Lymph # 0.7 K/mm3 (1.2-5.4) L 05/18/19 01:50 [place]reary # 1.3 K/mm3 (0.0-0.8) H 05/22/19 06:25 Eos # 0.9 K/mm3 (0.0-0.4) H 05/22/19 06:25 Baso # 0.0 K/mm3 (0.0-0.1) 05/22/19 06:25 Add Manual Diff Complete 06/06/19 11:34 Total Counted 100 06/06/19 11:34 Seg Neutrophils % 65.5 % (40.0-70.0) 05/22/19 06:25 Seg Neuts % (Manual) 87.0 % (40.0-70.0) H 06/06/19 11:34 Band Neutrophils % 1.0 % 06/06/19 11:34 Lymphocytes % (Manual) 3.0 % (13.4-35.0) L 06/06/19 11:34 Reactive Lymphs % (Man) 0 % 06/06/19 11:34 Monocytes % (Manual) 8.0 % (0.0-7.3) H 06/06/19 11:34 Eosinophils % (Manual) 0 % (0.0-4.3) 06/06/19 11:34 Basophils % (Manual) 0 % (0.0-1.8) 06/06/19 11:34 Metamyelocytes % 1.0 % 06/06/19 11:34 Myelocytes % 0 % 06/06/19 11:34 Promyelocytes % 0 % 06/06/19 11:34 Blast Cells % 0 % 06/06/19 11:34 Nucleated RBC % Not Reportable 06/06/19 11:34 Seg Neutrophils # 5.3 K/mm3 (1.8-7.7) 05/22/19 06:25 Seg Neutrophils # Man 15.7 K/mm3 (1.8-7.7) H 06/06/19 11:34 Band Neutrophils # 0.2 K/mm3 06/06/19 11:34 Lymphocytes # (Manual) 0.5 K/mm3 (1.2-5.4) L 06/06/19 11:34 Abs React Lymphs (Man) 0.0 K/mm3 06/06/19 11:34 Monocytes # (Manual) 1.4 K/mm3 (0.0-0.8) H 06/06/19 11:34 Eosinophils # (Manual) 0.0 K/mm3 (0.0-0.4) 06/06/19 11:34 Basophils # (Manual) 0.0 K/mm3 (0.0-0.1) 06/06/19 11:34 Metamyelocytes # 0.2 K/mm3 06/06/19 11:34 Myelocytes # 0.0 K/mm3 06/06/19 11:34 Promyelocytes # 0.0 K/mm3 06/06/19 11:34 Blast Cells # 0.0 K/mm3 06/06/19 11:34 WBC Morphology Not Reportable 06/06/19 11:34 Hypersegmented Neuts Not Reportable 06/06/19 11:34 Hyposegmented Neuts Not Reportable 06/06/19 11:34 Hypogranular Neuts Not Reportable 06/06/19 11:34 Smudge Cells Not Reportable 06/06/19 11:34 Toxic Granulation Not Reportable 06/06/19 11:34 Toxic Vacuolation Not Reportable 06/06/19 11:34 Dohle Bodies Not Reportable 06/06/19 11:34 Pelger-Huet Anomaly Not Reportable 06/06/19 11:34 Renea Rods Not Reportable 06/06/19 11:34 Platelet Estimate Consistent w auto 06/06/19 11:34 Clumped Platelets Not Reportable 06/06/19 11:34 Plt Clumps, EDTA Not Reportable 06/06/19 11:34 Large Platelets Not Reportable 06/06/19 11:34 Giant Platelets Not Reportable 06/06/19 11:34 Platelet Satelliting Not Reportable 06/06/19 11:34 Plt Morphology Comment Not Reportable 06/06/19 11:34 RBC Morphology Not Reportable 06/06/19 11:34 Dimorphic RBCs Not Reportable 06/06/19 11:34 Polychromasia Few 06/06/19 11:34 Hypochromasia Not Reportable 06/06/19 11:34 Poikilocytosis Not Reportable 06/06/19 11:34 Anisocytosis Not Reportable 06/06/19 11:34 Microcytosis Not Reportable 06/06/19 11:34 Macrocytosis Not Reportable 06/06/19 11:34 Spherocytes Not Reportable 06/06/19 11:34 Pappenheimer Bodies Not Reportable 06/06/19 11:34 Sickle Cells Not Reportable 06/06/19 11:34 Target Cells Not Reportable 06/06/19 11:34 Tear Drop Cells Few 06/06/19 11:34 Ovalocytes Not Reportable 06/06/19 11:34 Stomatocytes Few 06/03/19 05:30 Helmet Cells Not Reportable 06/06/19 11:34 [place] Bodies Not Reportable 06/06/19 11:34 [place] Rings Not Reportable 06/06/19 11:34 [place] Cells Not Reportable 06/06/19 11:34 Bite Cells Not Reportable 06/06/19 11:34 Crenated Cell Not Reportable 06/06/19 11:34 Elliptocytes Not Reportable 06/06/19 11:34 Acanthocytes (Spur) Not Reportable 06/06/19 11:34 Rouleaux Not Reportable 06/06/19 11:34 Hemoglobin C Crystals Not Reportable 06/06/19 11:34 Schistocytes Not Reportable 06/06/19 11:34 Malaria parasites Not Reportable 06/06/19 11:34 Syed Bodies Not Reportable 06/06/19 11:34 Hem Pathologist Commnt No 06/06/19 11:34 PT 15.4 Sec. (12.2-14.9) H 05/01/19 Unknown INR 1.23 (0.87-1.13) H 05/01/19 Unknown APTT 22.7 Sec. (24.2-36.6) L 05/01/19 Unknown POC ABG pH 7.462 (7.35-7.45) H 06/05/19 03:52 ABG pH 7.472 pH Units (7.350-7.450) H 06/06/19 04:00 POC ABG pCO2 39.8 (35-45) 06/05/19 03:52 ABG pCO2 39.4 mm Hg 06/06/19 04:00 POC ABG pO2 86 (80-105) 06/05/19 03:52 ABG pO2 76.4 mm Hg (80.0-90.0) L 06/06/19 04:00 POC ABG HCO3 28.4 (22-26 mml/L) 06/05/19 03:52 ABG HCO3 28.1 mmol/L (20.0-26.0) H 06/06/19 04:00 POC ABG Total CO2 30 (23-27mmol/L) 06/05/19 03:52 POC ABG O2 Sat 97 06/05/19 03:52 ABG O2 Saturation 96.2 % (95.0-99.0) 06/06/19 04:00 ABG O2 Content 16.5 (0.0-44) 06/06/19 04:00 POC ABG Base Excess 5 ((-2) - (+3)mmol/L) 06/05/19 03:52 ABG Base Excess 4.3 mmol/L (-2.0-3.0) H 06/06/19 04:00 ABG Hemoglobin 12.5 gm/dl (14.0-18.0) L 06/06/19 04:00 ABG Carboxyhemoglobin 2.0 % (0.0-5.0) 06/06/19 04:00 ABG Methemoglobin 0.5 % (0.0-1.5) 06/06/19 04:00 Oxyhemoglobin 93.8 % (95.0-99.0) L 06/06/19 04:00 FiO2 30 % 06/06/19 04:00 Sodium 138 mmol/L (137-145) 06/06/19 11:34 Potassium 4.5 mmol/L (3.6-5.0) 06/06/19 11:34 Chloride 98.2 mmol/L (98-107) 06/06/19 11:34 Carbon Dioxide 23 mmol/L (22-30) 06/06/19 11:34 Anion Gap 21 mmol/L 06/06/19 11:34 BUN 70 mg/dL (9-20) H 06/06/19 11:34 Creatinine 1.5 mg/dL (0.8-1.5) D 06/06/19 11:34 Estimated GFR > 60 ml/min 06/06/19 11:34 BUN/Creatinine Ratio 47 % 06/06/19 11:34 Glucose 310 mg/dL (75-100) H 06/06/19 11:34 POC Glucose 340 (70-105) H 06/06/19 05:49 Osmolality 327 Mosm/kg 05/07/19 13:45 Uric Acid 18.0 mg/dL (3.5-7.6) H 05/07/19 13:45 Calcium 8.3 mg/dL (8.4-10.2) L 06/06/19 11:34 Phosphorus 4.60 mg/dL (2.5-4.5) H 06/06/19 11:34 Magnesium 1.90 mg/dL (1.7-2.3) 05/31/19 13:04 Total Bilirubin 0.50 mg/dL (0.1-1.2) 06/06/19 11:34 AST 28 units/L (5-40) 06/06/19 11:34 ALT 75 units/L (7-56) H 06/06/19 11:34 Alkaline Phosphatase 93 units/L (35-129) 06/06/19 11:34 Total Creatine Kinase 131 units/L (55-170) 05/02/19 04:41 CK-MB (CK-2) 5.2 ng/mL (0.0-4.0) H 05/02/19 04:41 CK-MB (CK-2) Rel Index 3.9 (0-4) 05/02/19 04:41 Troponin T 0.067 ng/mL (0.00-0.029) H D 05/02/19 04:41 NT-Pro-B Natriuret Pep 6831 pg/mL (0-450) H 05/01/19 Unknown Total Protein 5.6 g/dL (6.3-8.2) L 06/06/19 11:34 Albumin 2.9 g/dL (3.9-5) L 06/06/19 11:34 Albumin/Globulin Ratio 1.1 % 06/06/19 11:34 Triglycerides 173 mg/dL (2-149) H 05/17/19 Unknown Cholesterol 173 mg/dL (50-199) 05/02/19 00:06 LDL Cholesterol Direct 126 mg/dL (50-130) 05/02/19 00:06 HDL Cholesterol 18 mg/dL (40-59) L 05/02/19 00:06 Cholesterol/HDL Ratio 9.61 % 05/02/19 00:06 Procalcitonin 0.54 ng/mL (<0.15) 05/03/19 11:52 Urine Color Yellow (Yellow) 05/20/19 12:00 Urine Turbidity Cloudy (Clear) 05/20/19 12:00 Urine pH 5.0 (5.0-7.0) 05/20/19 12:00 Ur Specific [place] 1.015 (1.003-1.030) 05/20/19 12:00 Urine Protein 30 mg/dl mg/dL (Negative) 05/20/19 12:00 Urine Glucose (UA) Neg mg/dL (Negative) 05/20/19 12:00 Urine Ketones Neg mg/dL (Negative) 05/20/19 12:00 Urine Blood Lg (Negative) 05/20/19 12:00 Urine Nitrite Neg (Negative) 05/20/19 12:00 Urine Bilirubin Neg (Negative) 05/20/19 12:00 Urine Urobilinogen < 2.0 mg/dL (<2.0) 05/20/19 12:00 Ur Leukocyte Esterase Mod (Negative) 05/20/19 12:00 Urine WBC (Auto) 26.0 /HPF (0.0-6.0) H 05/20/19 12:00 Urine RBC (Auto) 83.0 /HPF (0.0-6.0) 05/20/19 12:00 Urine Bacteria (Auto) 1+ /HPF (Negative) 05/20/19 12:00 Uric Acid Crystals 3+ 05/03/19 10:55 Urine Mucus Few /HPF 05/20/19 12:00 Urine Yeast (Budding) 3+ /HPF 05/20/19 12:00 Urine Creatinine 292.8 mg/dL (0.1-20.0) H 05/07/19 22:40 Urine Sodium 11 mmol/L 05/07/19 22:40 Urine Total Protein 269 mg/dL (5-11.8) H 05/07/19 22:40 Vancomycin Trough 20.5 ug/mL (5.0-20.0) H 05/15/19 09:00 Random Vancomycin 11.5 ug/mL (0-40.0) 05/27/19 06:00 AMNA Screen Negative (Negative) 05/07/19 13:45 Hepatitis A IgM Ab Non-reactive (NonReactive) 05/07/19 13:45 Hep Bs Antigen Non-reactive (Negative) 05/07/19 13:45 Hep B Core IgM Ab Non-reactive (NonReactive) 05/07/19 13:45 Hepatitis C Antibody Non-reactive (NonReactive) 05/07/19 13:45 Active Medications - Current Medications Current Medications: Generic Name Dose Route Start Last Admin Trade Name Freq PRN Reason Stop Dose Admin Albumin Human 25 gm 05/19/19 10:47 Alburx 25% (Albumin) IV ARIANE PRN Hypotension Alteplase, Recombinant 2 mg 05/25/19 09:30 05/28/19 21:15 Cathflo IV 2 mg ARIANE PRN Administration LINE FLUSH Lipase/Protease/Amylase 1 each 05/14/19 15:[address] 10,500 Unit FEEDTUBE PRN PRN For Clogged Feeding Tube Clonidine HCl 0.2 mg 06/05/19 18:00 06/06/19 11:43 Catapres PO 0.2 mg Q6H VICKEY Administration Dextrose 50 gm 05/01/19 20:24 D50w (25gm) Vial IV Q30MIN PRN Hypoglycemia Protocol Enoxaparin Sodium 30 mg 05/16/19 10:00 06/06/19 09:19 Enoxaparin SUB-Q 30 mg QDAY VICKEY Administration Epoetin Hugo 10,000 unit 05/19/19 10:47 06/03/19 11:49 Procrit IV 10,000 unit ARIANE PRN Administration hemodialysis Famotidine 20 mg 05/16/19 10:00 06/06/19 09:19 Pepcid PO 20 mg DAILY VICKEY Administration Fentanyl 50 mcg 06/03/19 10:03 06/03/19 18:46 Sublimaze IV 50 mcg Q2HR PRN Administration Pain, Moderate (4-6) Heparin Sodium (Porcine) 300 unit 06/05/19 14:30 06/05/19 15:29 Heparin 10,000 Units/10 Ml IV 06/06/19 14:29 300 unit ARIANE PRN Administration hemodialysis Hydralazine HCl 20 mg 05/13/19 08:09 06/06/19 09:19 Apresoline IV 20 mg Q4HR PRN Administration SBP >/=160 Propofol 1,000 mg in 100 mls @ 7.011 mls/hr 05/03/19 04:00 06/06/19 09:56 Diprivan 10 Mg/Ml IV 0 mcg/kg/min TITR VICKEY 0 mls/hr Titration Protocol 5 MCG/KG/MIN Sodium Chloride 100 mls @ 999 mls/hr 05/19/19 10:47 05/20/19 08:14 Nacl 0.9% IV 999 mls/hr ARIANE PRN Administration Hypotension Insulin Glargine 30 units 06/06/19 22:00 Lantus SUB-Q QHS VICKEY Insulin Human Lispro 0 unit 06/01/19 14:00 06/06/19 12:12 Humalog SUB-Q 6 unit Q6HR VICKEY Administration Protocol Labetalol HCl 100 mg 05/14/19 14:00 06/06/19 13:34 Labetalol PO 100 mg Q8HR VICKEY Administration Levetiracetam 750 mg 05/13/19 10:00 06/06/19 09:19 Keppra PO 750 mg BID VICKEY Administration Lorazepam 2 mg 05/06/19 06:22 05/10/19 16:17 Ativan IV 2 mg Q4H PRN Administration Seizures/AGITATION Methylprednisolone Sodium Succinate 80 mg 06/06/19 14:00 06/06/19 13:34 Solu-Medrol IV 80 mg Q8HR VICKEY Administration Scopolamine 1 each 05/20/19 12:00 05/20/19 12:52 Transderm-Scop TD 1 each Q72HR VICKEY Administration Simple Syrup 15 ml 05/14/19 15:01 Simple Syrup FEEDTUBE PRN PRN Hypoglycemia Simple Syrup 30 ml 05/14/19 15:01 Simple Syrup FEEDTUBE PRN PRN Hypoglycemia Sodium Bicarbonate 325 mg 05/14/19 15:01 Sodium Bicarbonate FEEDTUBE PRN PRN For Clogged Feeding Tube Nutrition/Malnutrition Assess - Dietary Evaluation Nutrition/Malnutrition Findings: Nutrition Notes Start: 05/04/19 12:54 Freq: Status: Active Protocol: Document 06/03/19 11:05 [email or web address] (Rec: 06/03/19 11:12 KS [id number]) Co-Sign 06/03/19 11:05 LP Nutrition Notes Initial or Follow up Reassessment Current Diagnosis Acute Kidney Injury,Sepsis, Respiratory Failure Other Pertinent Diagnosis on HD Current Diet Nepro 1.8 at 50 ml/hr Labs/Tests BUN 119 CR 4.1 Glu 330 POC Glu 254 Ca 8.1 Pertinent Medications Humalog Solumedrol Propofol at 7.011 ml/hr( 185kcal) Height 6 ft 4 in Weight 257.2 kg [place] Body Weight (kg) 91.81 BMI 69.0 Weight change and time frame Wt change noted. Likely due to fluid Weight Status Morbidly Obese Subjective/Other Information Pt tolerating Nepro at 50ml/hr . Pt on HD. Per MD, pt to possibly be extubated this week. Percent of energy/protein needs met: 100%/43% Burn Absent Trauma Absent Current % PO Negligible Minimum of two criteria No physical signs of malnutrition #1 Nutrition Diagnosis Inadequate oral intake Diagnosis Progress(for reassessment Continues documentation) Is patient on ventilator? Yes Is Patient Ambulatory and/or Out of Bed No REE-([facility]-confined to bed) 4342.284 Kcal/Kg value to use for calculation 8 Approximate Energy Requirements Using 8 kcal/Kg Calculation Used for Recommendations Kcal/kg Additional Notes PRO needs: 225 g (up to 2.5 g/ kg IBW) Fluid needs: 1 ml/kcal Nutrition Intervention Change Diet Order: Continue TF Nutrition Support: Nepro 1.8 at 50 ml/hr Flush with 150ml q4h Kcal 2,160 Protein (gm) 97 Fluid (mL) 872 Goal #1 TF tolerance Goal #2 Meet at least 75% kcal/PRO needs via TF Anticipated Discharge Needs: Unable to determine at this time Follow-Up By: 06/10/19 Additional Comments Follow for TF tolerance
[2019-06-06] MEDS: cloNIDine TTS 0.3 MG/24 HR PATCH TD SCH (20:38)
[2019-06-06] MEDS ORDERED: INSULIN GLARGINE 100 UNITS/ML SUB-Q SCH (22:00)
[2019-06-06] MEDS: MINOXIDIL 2.5 MG TAB PO SCH (22:13)
[2019-06-07] MEDS: INSULIN LISPRO 100 UNIT/ML SUB-Q SCH ×4 (01:04→18:31)
[2019-06-07] MEDS: methylPREDNISolone Sod Succinate 125 MG/2 ML INJ IV SCH ×4 (05:34→22:49)
[2019-06-07] MEDS: levETIRAcetam 500 MG/5 ML ORAL LIQD PO SCH ×3 (05:39→22:49)
[2019-06-07 05:56] LABS: ABG Base Excess 3.5 mmol/L (-2.0-3.0); ABG HCO3 27.2 mmol/L (20.0-26.0); ABG Methemoglobin 0.4 % (0.0-1.5); ABG Oxygen Saturation 96.7 % (95.0-99.0); ABG PCO2 37.4 mm Hg; ABG PH 7.48 pH Units (7.350-7.450)
[2019-06-07] MEDS: hydrALAZINE 20 MG/1 ML INJ IV PRN (07:57)
[2019-06-07] MEDS ORDERED: INSULIN GLARGINE 100 UNITS/ML SUB-Q ONE (09:00)
--- NOTE | 2019-06-07 09:22 | Progress Note ---
Assessment and Plan 34 y/o male with acute hypoxic, hypercapnic respiratory failure currently ventilated and sedated, now with persistent fevers and seizure and on HD 06/07/2019: Tolerated PSV all weekend. Mental staus is good. Follows commands. ABG this am was good. Spoken with Anesthesia and they are aware of the patient and his size and difficulty. Today will extubate. Will have bipap ready, Bougie and glide scope. Given patient size, body habitus and possibility for compromise, will take all precautions and have anesthesia available. 1. ID: Patient unable to fit in scanner so CT of head sinus, chest will not h appen. ID has placed back on renally adjusted Vanc. he has grown out jarad from urine and a tracheal aspirate 2. Pulm: FIO2 now @ 40%. ABG was good. Will wean after HD today. Can start to come down on PEEP. Will drop to 12 3. Renal: HD per renal, will need permacath per vascular notes if patient can be afebrile. 4. Day number of 37 of intubation. 5. Trying to avoid trach as much as possible. He is on his fourth week of intubation. However still requiring high levels of PEEP. At this point, once weaned to normal PEEP levels, hoping that we can extubate. CCT 31 minutes. Subjective Date of service: 06/07/19 Principal diagnosis: HF; acute hypoxemic resp failure, SIRS, CARLA Interval history: Awake and alert, following commands. No family present. Spoke with Anesthesia today about the plan. Objective Vital Signs - 12hr 06/06/19 06/06/19 06/06/19 21:30 22:00 22:01 Temperature Pulse Rate 80 82 82 Pulse Rate [ From Monitor] Respiratory 28 H 26 H 30 H Rate Blood Pressure 172/92 169/91 169/91 O2 Sat by Pulse 87 88 95 Oximetry 06/06/19 06/06/19 06/06/19 22:30 23:00 23:30 Temperature Pulse Rate 85 79 81 Pulse Rate [ From Monitor] Respiratory 14 27 H 18 Rate Blood Pressure 178/92 148/76 139/88 O2 Sat by Pulse 86 88 86 Oximetry 06/07/19 06/07/19 06/07/19 00:00 00:01 00:30 Temperature 99.8 F H Pulse Rate 79 80 79 Pulse Rate [ 86 From Monitor] Respiratory 30 H 31 H 29 H Rate Blood Pressure 168/86 174/88 O2 Sat by Pulse 93 87 87 Oximetry 06/07/19 06/07/19 06/07/19 01:00 01:02 01:30 Temperature Pulse Rate 84 85 89 Pulse Rate [ From Monitor] Respiratory 19 31 H Rate Blood Pressure 171/85 171/85 170/90 O2 Sat by Pulse 90 92 85 Oximetry 06/07/19 06/07/19 06/07/19 02:00 02:30 03:00 Temperature Pulse Rate 87 87 87 Pulse Rate [ From Monitor] Respiratory 33 H 22 20 Rate Blood Pressure 168/86 158/93 164/83 O2 Sat by Pulse 86 87 86 Oximetry 06/07/19 06/07/19 06/07/19 03:31 04:00 04:22 Temperature 100.6 F H Pulse Rate 95 H 95 H 92 H Pulse Rate [ 88 From Monitor] Respiratory 31 H 22 Rate Blood Pressure 165/85 163/90 168/89 O2 Sat by Pulse 87 88 95 Oximetry 06/07/19 06/07/19 06/07/19 04:30 05:00 05:30 Temperature Pulse Rate 90 95 H 103 H Pulse Rate [ From Monitor] Respiratory 15 30 H 12 Rate Blood Pressure 170/88 171/88 159/87 O2 Sat by Pulse 85 85 85 Oximetry 06/07/19 06/07/19 06/07/19 06:00 06:30 07:00 Temperature Pulse Rate 97 H 85 89 Pulse Rate [ From Monitor] Respiratory 32 H 26 H 29 H Rate Blood Pressure 166/71 172/82 181/92 O2 Sat by Pulse 90 88 87 Oximetry 06/07/19 06/07/19 06/07/19 07:30 07:44 07:57 Temperature Pulse Rate 89 87 90 Pulse Rate [ From Monitor] Respiratory 30 H Rate Blood Pressure 187/83 181/82 181/82 O2 Sat by Pulse 91 963 H Oximetry 06/07/19 08:00 Temperature Pulse Rate 95 H Pulse Rate [ 98 H From Monitor] Respiratory 29 H Rate Blood Pressure 175/81 O2 Sat by Pulse 94 Oximetry Constitutional: no acute distress, other (morbidly obese male, on vent, orally intubated) Eyes: non-icteric ENT: oropharynx moist Neck: other (extremely large in circumference) Effort: normal Ascultation: Bilateral: diminished breath sounds (secondary to body habitus) Cardiovascular: regular rate and rhythm (no mrg) Gastrointestinal: normoactive bowel sounds, non-tender, other (obese) Integumentary: other (L hand is wrapped) Extremities: no cyanosis, pink and warm, other (1+ generalized edema) Neurologic: unable to assess Psychiatric: other (unable to assess) CBC and BMP: 06/06/19 11:34 06/06/19 11:34 ABG, PT/INR, D-dimer: ABG POC ABG pH 7.462 (7.35-7.45) H 06/05/19 03:52 ABG pH 7.480 pH Units (7.350-7.450) H 06/07/19 04:30 POC ABG pCO2 39.8 (35-45) 06/05/19 03:52 ABG pCO2 37.4 mm Hg 06/07/19 04:30 POC ABG pO2 86 (80-105) 06/05/19 03:52 ABG pO2 77.0 mm Hg (80.0-90.0) L 06/07/19 04:30 POC ABG HCO3 28.4 (22-26 mml/L) 06/05/19 03:52 POC ABG Total CO2 30 (23-27mmol/L) 06/05/19 03:52 POC ABG O2 Sat 97 06/05/19 03:52 ABG O2 Saturation 96.7 % (95.0-99.0) 06/07/19 04:30 PT/INR, D-dimer PT 15.4 Sec. (12.2-14.9) H 05/01/19 Unknown INR 1.23 (0.87-1.13) H 05/01/19 Unknown Abnormal lab findings: Abnormal Labs 05/01/19 05/01/19 05/01/19 17:50 19:26 22:36 WBC RBC Hgb Hct MCV MCH MCHC RDW Lymph % (Auto) [place] % (Auto) Eos % (Auto) Lymph # [place] # Eos # Seg Neutrophils % Seg Neuts % (Manual) Lymphocytes % (Manual) Monocytes % (Manual) Eosinophils % (Manual) Nucleated RBC % Seg Neutrophils # Seg Neutrophils # Man Lymphocytes # (Manual) Monocytes # (Manual) Eosinophils # (Manual) PT INR APTT POC ABG pH 7.272 L 7.331 L ABG pH POC ABG pCO2 52.8 H POC ABG pO2 ABG pO2 ABG HCO3 ABG O2 Saturation ABG Base Excess ABG Hemoglobin Oxyhemoglobin Sodium 136 L Potassium 6.5 H* Chloride 97.2 L Carbon Dioxide BUN 60 H Creatinine Glucose 113 H POC Glucose Uric Acid Calcium Phosphorus Magnesium 2.40 H AST 139 H ALT 154 H Total Creatine Kinase CK-MB (CK-2) Troponin T NT-Pro-B Natriuret Pep Total Protein Albumin 3.8 L Triglycerides HDL Cholesterol Urine WBC (Auto) Urine Creatinine Urine Total Protein Vancomycin Trough 05/01/19 05/01/19 05/01/19 Unknown Unknown Unknown WBC 16.1 H RBC Hgb Hct MCV MCH MCHC RDW 17.2 H Lymph % (Auto) [place] % (Auto) 9.6 H Eos % (Auto) Lymph # [place] # 1.5 H Eos # Seg Neutrophils % 73.0 H Seg Neuts % (Manual) Lymphocytes % (Manual) Monocytes % (Manual) Eosinophils % (Manual) Nucleated RBC % Seg Neutrophils # 11.7 H Seg Neutrophils # Man Lymphocytes # (Manual) Monocytes # (Manual) Eosinophils # (Manual) PT 15.4 H INR 1.23 H APTT 22.7 L POC ABG pH ABG pH POC ABG pCO2 POC ABG pO2 ABG pO2 ABG HCO3 ABG O2 Saturation ABG Base Excess ABG Hemoglobin Oxyhemoglobin Sodium Potassium Chloride Carbon Dioxide BUN Creatinine Glucose POC Glucose Uric Acid Calcium Phosphorus Magnesium AST ALT Total Creatine Kinase CK-MB (CK-2) Troponin T NT-Pro-B Natriuret Pep 6831 H Total Protein Albumin Triglycerides HDL Cholesterol Urine WBC (Auto) Urine Creatinine Urine Total Protein Vancomycin Trough 05/01/19 05/02/19 05/02/19 Unknown 00:06 00:06 WBC RBC Hgb Hct MCV MCH MCHC RDW Lymph % (Auto) [place] % (Auto) Eos % (Auto) Lymph # [place] # Eos # Seg Neutrophils % Seg Neuts % (Manual) Lymphocytes % (Manual) Monocytes % (Manual) Eosinophils % (Manual) Nucleated RBC % Seg Neutrophils # Seg Neutrophils # Man Lymphocytes # (Manual) Monocytes # (Manual) Eosinophils # (Manual) PT INR APTT POC ABG pH ABG pH POC ABG pCO2 POC ABG pO2 ABG pO2 ABG HCO3 ABG O2 Saturation ABG Base Excess ABG Hemoglobin Oxyhemoglobin Sodium Potassium Chloride Carbon Dioxide BUN Creatinine Glucose POC Glucose Uric Acid Calcium Phosphorus 4.90 H Magnesium AST ALT Total Creatine Kinase 226 H CK-MB (CK-2) 5.7 H Troponin T 0.044 H NT-Pro-B Natriuret Pep Total Protein Albumin Triglycerides 182 H HDL Cholesterol 18 L Urine WBC (Auto) Urine Creatinine Urine Total Protein Vancomycin Trough 05/02/19 05/02/19 05/02/19 02:08 04:40 04:41 WBC 17.6 H RBC Hgb Hct MCV MCH 27 L MCHC RDW 17.4 H Lymph % (Auto) 10.2 L [place] % (Auto) 11.0 H Eos % (Auto) Lymph # [place] # 1.9 H Eos # Seg Neutrophils % 78.0 H Seg Neuts % (Manual) Lymphocytes % (Manual) Monocytes % (Manual) Eosinophils % (Manual) Nucleated RBC % Seg Neutrophils # 13.8 H Seg Neutrophils # Man Lymphocytes # (Manual) Monocytes # (Manual) Eosinophils # (Manual) PT INR APTT POC ABG pH ABG pH POC ABG pCO2 46.8 H POC ABG pO2 63 L ABG pO2 ABG HCO3 ABG O2 Saturation ABG Base Excess ABG Hemoglobin Oxyhemoglobin Sodium Potassium Chloride 96.3 L Carbon Dioxide BUN 63 H Creatinine 1.7 H Glucose POC Glucose Uric Acid Calcium Phosphorus Magnesium AST ALT Total Creatine Kinase CK-MB (CK-2) Troponin T NT-Pro-B Natriuret Pep Total Protein Albumin Triglycerides HDL Cholesterol Urine WBC (Auto) Urine Creatinine Urine Total Protein Vancomycin Trough 05/02/19 05/02/19 05/02/19 04:41 04:41 16:05 WBC RBC Hgb Hct MCV MCH MCHC RDW Lymph % (Auto) [place] % (Auto) Eos % (Auto) Lymph # [place] # Eos # Seg Neutrophils % Seg Neuts % (Manual) Lymphocytes % (Manual) Monocytes % (Manual) Eosinophils % (Manual) Nucleated RBC % Seg Neutrophils # Seg Neutrophils # Man Lymphocytes # (Manual) Monocytes # (Manual) Eosinophils # (Manual) PT INR APTT POC ABG pH ABG pH POC ABG pCO2 POC ABG pO2 ABG pO2 66.6 L ABG HCO3 31.9 H ABG O2 Saturation 92.5 L ABG Base Excess 5.8 H ABG Hemoglobin 13.3 L Oxyhemoglobin 90.6 L Sodium Potassium Chloride 97.2 L Carbon Dioxide BUN 61 H Creatinine 1.8 H Glucose POC Glucose Uric Acid Calcium Phosphorus Magnesium AST ALT Total Creatine Kinase CK-MB (CK-2) 5.2 H Troponin T 0.067 H D NT-Pro-B Natriuret Pep Total Protein Albumin Triglycerides HDL Cholesterol Urine WBC (Auto) Urine Creatinine Urine Total Protein Vancomycin Trough 05/02/19 05/03/19 05/03/19 20:39 04:35 05:05 WBC 11.8 H RBC Hgb Hct MCV MCH 27 L MCHC 31 L RDW 17.2 H Lymph % (Auto) [place] % (Auto) Eos % (Auto) Lymph # [place] # Eos # Seg Neutrophils % Seg Neuts % (Manual) Lymphocytes % (Manual) Monocytes % (Manual) Eosinophils % (Manual) Nucleated RBC % Seg Neutrophils # Seg Neutrophils # Man Lymphocytes # (Manual) Monocytes # (Manual) Eosinophils # (Manual) PT INR APTT POC ABG pH ABG pH POC ABG pCO2 53.6 H 54.0 H POC ABG pO2 55 L 63 L ABG pO2 ABG HCO3 ABG O2 Saturation ABG Base Excess ABG Hemoglobin Oxyhemoglobin Sodium Potassium Chloride Carbon Dioxide BUN Creatinine Glucose POC Glucose Uric Acid Calcium Phosphorus Magnesium AST ALT Total Creatine Kinase CK-MB (CK-2) Troponin T NT-Pro-B Natriuret Pep Total Protein Albumin Triglycerides HDL Cholesterol Urine WBC (Auto) Urine Creatinine Urine Total Protein Vancomycin Trough 05/03/19 05/03/19 05/03/19 05:05 10:55 16:48 WBC RBC Hgb Hct MCV MCH MCHC RDW Lymph % (Auto) [place] % (Auto) Eos % (Auto) Lymph # [place] # Eos # Seg Neutrophils % Seg Neuts % (Manual) Lymphocytes % (Manual) Monocytes % (Manual) Eosinophils % (Manual) Nucleated RBC % Seg Neutrophils # Seg Neutrophils # Man Lymphocytes # (Manual) Monocytes # (Manual) Eosinophils # (Manual) PT INR APTT POC ABG pH 7.604 H ABG pH POC ABG pCO2 POC ABG pO2 58 L ABG pO2 ABG HCO3 ABG O2 Saturation ABG Base Excess ABG Hemoglobin Oxyhemoglobin Sodium Potassium Chloride Carbon Dioxide BUN 52 H Creatinine 1.9 H Glucose 103 H POC Glucose Uric Acid Calcium Phosphorus Magnesium AST ALT Total Creatine Kinase CK-MB (CK-2) Troponin T NT-Pro-B Natriuret Pep Total Protein Albumin Triglycerides HDL Cholesterol Urine WBC (Auto) 33.0 H Urine Creatinine Urine Total Protein Vancomycin Trough 05/04/19 05/04/19 05/04/19 04:49 06:50 06:50 WBC 16.0 H RBC Hgb Hct MCV MCH 27 L MCHC 31 L RDW 17.8 H Lymph % (Auto) [place] % (Auto) Eos % (Auto) Lymph # [place] # Eos # Seg Neutrophils % Seg Neuts % (Manual) Lymphocytes % (Manual) Monocytes % (Manual) Eosinophils % (Manual) Nucleated RBC % Seg Neutrophils # Seg Neutrophils # Man Lymphocytes # (Manual) Monocytes # (Manual) Eosinophils # (Manual) PT INR APTT POC ABG pH 7.273 L ABG pH POC ABG pCO2 POC ABG pO2 ABG pO2 ABG HCO3 ABG O2 Saturation ABG Base Excess ABG Hemoglobin Oxyhemoglobin Sodium 148 H Potassium 5.5 H Chloride Carbon Dioxide BUN 53 H Creatinine 3.3 H D Glucose 106 H POC Glucose Uric Acid Calcium 8.3 L Phosphorus Magnesium AST ALT Total Creatine Kinase CK-MB (CK-2) Troponin T NT-Pro-B Natriuret Pep Total Protein Albumin Triglycerides HDL Cholesterol Urine WBC (Auto) Urine Creatinine Urine Total Protein Vancomycin Trough 05/05/19 05/05/19 05/05/19 00:05 04:30 05:00 WBC RBC Hgb Hct MCV MCH MCHC RDW Lymph % (Auto) [place] % (Auto) Eos % (Auto) Lymph # [place] # Eos # Seg Neutrophils % Seg Neuts % (Manual) Lymphocytes % (Manual) Monocytes % (Manual) Eosinophils % (Manual) Nucleated RBC % Seg Neutrophils # Seg Neutrophils # Man Lymphocytes # (Manual) Monocytes # (Manual) Eosinophils # (Manual) PT INR APTT POC ABG pH 7.225 L ABG pH POC ABG pCO2 > 70 H POC ABG pO2 ABG pO2 ABG HCO3 ABG O2 Saturation ABG Base Excess ABG Hemoglobin Oxyhemoglobin Sodium 151 H Potassium 5.1 H Chloride Carbon Dioxide BUN 64 H Creatinine 3.5 H Glucose 117 H POC Glucose 141 H Uric Acid Calcium 7.5 L Phosphorus Magnesium AST 93 H ALT 65 H Total Creatine Kinase CK-MB (CK-2) Troponin T NT-Pro-B Natriuret Pep Total Protein Albumin 2.9 L Triglycerides HDL Cholesterol Urine WBC (Auto) Urine Creatinine Urine Total Protein Vancomycin Trough 05/05/19 05/05/19 05/05/19 05:00 12:02 17:46 WBC 12.0 H RBC Hgb 11.3 L Hct MCV MCH 27 L MCHC 30 L RDW 18.4 H Lymph % (Auto) 7.9 L [place] % (Auto) 10.2 H Eos % (Auto) Lymph # 1.0 L [place] # 1.2 H Eos # Seg Neutrophils % 80.8 H Seg Neuts % (Manual) Lymphocytes % (Manual) Monocytes % (Manual) Eosinophils % (Manual) Nucleated RBC % Seg Neutrophils # 9.7 H Seg Neutrophils # Man Lymphocytes # (Manual) Monocytes # (Manual) Eosinophils # (Manual) PT INR APTT POC ABG pH ABG pH POC ABG pCO2 POC ABG pO2 ABG pO2 ABG HCO3 ABG O2 Saturation ABG Base Excess ABG Hemoglobin Oxyhemoglobin Sodium Potassium Chloride Carbon Dioxide BUN Creatinine Glucose POC Glucose 125 H 112 H Uric Acid Calcium Phosphorus Magnesium AST ALT Total Creatine Kinase CK-MB (CK-2) Troponin T NT-Pro-B Natriuret Pep Total Protein Albumin Triglycerides HDL Cholesterol Urine WBC (Auto) Urine Creatinine Urine Total Protein Vancomycin Trough 05/05/19 05/06/19 05/06/19 23:42 03:58 04:45 WBC 11.4 H RBC Hgb 10.7 L Hct 34.2 L MCV MCH 27 L MCHC 31 L RDW 16.9 H Lymph % (Auto) [place] % (Auto) Eos % (Auto) Lymph # [place] # Eos # Seg Neutrophils % Seg Neuts % (Manual) Lymphocytes % (Manual) Monocytes % (Manual) Eosinophils % (Manual) Nucleated RBC % Seg Neutrophils # Seg Neutrophils # Man Lymphocytes # (Manual) Monocytes # (Manual) Eosinophils # (Manual) PT INR APTT POC ABG pH ABG pH POC ABG pCO2 62.4 H POC ABG pO2 111 H ABG pO2 ABG HCO3 ABG O2 Saturation ABG Base Excess ABG Hemoglobin Oxyhemoglobin Sodium Potassium Chloride Carbon Dioxide BUN Creatinine Glucose POC Glucose 128 H Uric Acid Calcium Phosphorus Magnesium AST ALT Total Creatine Kinase CK-MB (CK-2) Troponin T NT-Pro-B Natriuret Pep Total Protein Albumin Triglycerides HDL Cholesterol Urine WBC (Auto) Urine Creatinine Urine Total Protein Vancomycin Trough 05/06/19 05/06/19 05/06/19 04:45 05:33 12:30 WBC RBC Hgb Hct MCV MCH MCHC RDW Lymph % (Auto) [place] % (Auto) Eos % (Auto) Lymph # [place] # Eos # Seg Neutrophils % Seg Neuts % (Manual) Lymphocytes % (Manual) Monocytes % (Manual) Eosinophils % (Manual) Nucleated RBC % Seg Neutrophils # Seg Neutrophils # Man Lymphocytes # (Manual) Monocytes # (Manual) Eosinophils # (Manual) PT INR APTT POC ABG pH ABG pH POC ABG pCO2 POC ABG pO2 ABG pO2 ABG HCO3 ABG O2 Saturation ABG Base Excess ABG Hemoglobin Oxyhemoglobin Sodium 149 H Potassium Chloride Carbon Dioxide 31 H BUN 67 H Creatinine 3.2 H Glucose 125 H POC Glucose 117 H 116 H Uric Acid Calcium 7.5 L Phosphorus Magnesium AST ALT Total Creatine Kinase CK-MB (CK-2) Troponin T NT-Pro-B Natriuret Pep Total Protein Albumin Triglycerides HDL Cholesterol Urine WBC (Auto) Urine Creatinine Urine Total Protein Vancomycin Trough 05/06/19 05/06/19 05/07/19 18:34 23:16 05:22 WBC RBC Hgb Hct MCV MCH MCHC RDW Lymph % (Auto) [place] % (Auto) Eos % (Auto) Lymph # [place] # Eos # Seg Neutrophils % Seg Neuts % (Manual) Lymphocytes % (Manual) Monocytes % (Manual) Eosinophils % (Manual) Nucleated RBC % Seg Neutrophils # Seg Neutrophils # Man Lymphocytes # (Manual) Monocytes # (Manual) Eosinophils # (Manual) PT INR APTT POC ABG pH ABG pH POC ABG pCO2 POC ABG pO2 ABG pO2 ABG HCO3 ABG O2 Saturation ABG Base Excess ABG Hemoglobin Oxyhemoglobin Sodium Potassium Chloride Carbon Dioxide BUN Creatinine Glucose POC Glucose 128 H 143 H 166 H Uric Acid Calcium Phosphorus Magnesium AST ALT Total Creatine Kinase CK-MB (CK-2) Troponin T NT-Pro-B Natriuret Pep Total Protein Albumin Triglycerides HDL Cholesterol Urine WBC (Auto) Urine Creatinine Urine Total Protein Vancomycin Trough 05/07/19 05/07/19 05/07/19 06:33 07:03 09:35 WBC RBC Hgb Hct MCV MCH MCHC RDW Lymph % (Auto) [place] % (Auto) Eos % (Auto) Lymph # [place] # Eos # Seg Neutrophils % Seg Neuts % (Manual) Lymphocytes % (Manual) Monocytes % (Manual) Eosinophils % (Manual) Nucleated RBC % Seg Neutrophils # Seg Neutrophils # Man Lymphocytes # (Manual) Monocytes # (Manual) Eosinophils # (Manual) PT INR APTT POC ABG pH 7.263 L 7.288 L ABG pH POC ABG pCO2 POC ABG pO2 51 L 56 L ABG pO2 ABG HCO3 ABG O2 Saturation ABG Base Excess ABG Hemoglobin Oxyhemoglobin Sodium Potassium Chloride Carbon Dioxide BUN 76 H Creatinine 3.2 H Glucose 147 H POC Glucose Uric Acid Calcium 7.9 L Phosphorus Magnesium AST ALT Total Creatine Kinase CK-MB (CK-2) Troponin T NT-Pro-B Natriuret Pep Total Protein Albumin Triglycerides HDL Cholesterol Urine WBC (Auto) Urine Creatinine Urine Total Protein Vancomycin Trough 05/07/19 05/07/19 05/07/19 09:35 12:17 13:45 WBC 13.4 H RBC Hgb 11.6 L Hct MCV MCH 27 L MCHC 31 L RDW 17.5 H Lymph % (Auto) [place] % (Auto) Eos % (Auto) Lymph # [place] # Eos # Seg Neutrophils % Seg Neuts % (Manual) Lymphocytes % (Manual) Monocytes % (Manual) Eosinophils % (Manual) Nucleated RBC % Seg Neutrophils # Seg Neutrophils # Man Lymphocytes # (Manual) Monocytes # (Manual) Eosinophils # (Manual) PT INR APTT POC ABG pH ABG pH POC ABG pCO2 POC ABG pO2 ABG pO2 ABG HCO3 ABG O2 Saturation ABG Base Excess ABG Hemoglobin Oxyhemoglobin Sodium Potassium Chloride Carbon Dioxide BUN Creatinine Glucose POC Glucose 130 H Uric Acid 18.0 H Calcium Phosphorus Magnesium AST ALT Total Creatine Kinase CK-MB (CK-2) Troponin T NT-Pro-B Natriuret Pep Total Protein Albumin Triglycerides HDL Cholesterol Urine WBC (Auto) Urine Creatinine Urine Total Protein Vancomycin Trough 05/07/19 05/07/19 05/08/19 17:39 22:40 05:06 WBC RBC Hgb Hct MCV MCH MCHC RDW Lymph % (Auto) [place] % (Auto) Eos % (Auto) Lymph # [place] # Eos # Seg Neutrophils % Seg Neuts % (Manual) Lymphocytes % (Manual) Monocytes % (Manual) Eosinophils % (Manual) Nucleated RBC % Seg Neutrophils # Seg Neutrophils # Man Lymphocytes # (Manual) Monocytes # (Manual) Eosinophils # (Manual) PT INR APTT POC ABG pH ABG pH POC ABG pCO2 POC ABG pO2 ABG pO2 ABG HCO3 ABG O2 Saturation ABG Base Excess ABG Hemoglobin Oxyhemoglobin Sodium Potassium Chloride Carbon Dioxide BUN Creatinine Glucose POC Glucose 116 H 148 H Uric Acid Calcium Phosphorus Magnesium AST ALT Total Creatine Kinase CK-MB (CK-2) Troponin T NT-Pro-B Natriuret Pep Total Protein Albumin Triglycerides HDL Cholesterol Urine WBC (Auto) Urine Creatinine 292.8 H Urine Total Protein 269 H Vancomycin Trough 05/08/19 05/08/19 05/08/19 05:32 11:28 13:48 WBC RBC Hgb Hct MCV MCH MCHC RDW Lymph % (Auto) [place] % (Auto) Eos % (Auto) Lymph # [place] # Eos # Seg Neutrophils % Seg Neuts % (Manual) Lymphocytes % (Manual) Monocytes % (Manual) Eosinophils % (Manual) Nucleated RBC % Seg Neutrophils # Seg Neutrophils # Man Lymphocytes # (Manual) Monocytes # (Manual) Eosinophils # (Manual) PT INR APTT POC ABG pH ABG pH POC ABG pCO2 45.4 H POC ABG pO2 64 L ABG pO2 ABG HCO3 ABG O2 Saturation ABG Base Excess ABG Hemoglobin Oxyhemoglobin Sodium Potassium Chloride Carbon Dioxide BUN 73 H Creatinine 2.7 H Glucose 127 H POC Glucose 107 H Uric Acid Calcium 7.6 L Phosphorus Magnesium AST ALT Total Creatine Kinase CK-MB (CK-2) Troponin T NT-Pro-B Natriuret Pep Total Protein Albumin Triglycerides HDL Cholesterol Urine WBC (Auto) Urine Creatinine Urine Total Protein Vancomycin Trough 05/08/19 05/09/19 05/09/19 17:48 04:50 04:53 WBC RBC 3.07 L Hgb 8.5 L D Hct 29.3 L D MCV 96 H MCH MCHC 29 L RDW 18.1 H Lymph % (Auto) [place] % (Auto) Eos % (Auto) Lymph # [place] # Eos # Seg Neutrophils % Seg Neuts % (Manual) Lymphocytes % (Manual) Monocytes % (Manual) Eosinophils % (Manual) Nucleated RBC % Seg Neutrophils # Seg Neutrophils # Man Lymphocytes # (Manual) Monocytes # (Manual) Eosinophils # (Manual) PT INR APTT POC ABG pH 7.316 L ABG pH POC ABG pCO2 66.0 H POC ABG pO2 69 L ABG pO2 ABG HCO3 ABG O2 Saturation ABG Base Excess ABG Hemoglobin Oxyhemoglobin Sodium Potassium Chloride Carbon Dioxide BUN Creatinine Glucose POC Glucose 155 H Uric Acid Calcium Phosphorus Magnesium AST ALT Total Creatine Kinase CK-MB (CK-2) Troponin T NT-Pro-B Natriuret Pep Total Protein Albumin Triglycerides HDL Cholesterol Urine WBC (Auto) Urine Creatinine Urine Total Protein Vancomycin Trough 05/09/19 05/09/19 05/09/19 05:46 07:24 12:10 WBC RBC Hgb Hct MCV MCH MCHC RDW Lymph % (Auto) [place] % (Auto) Eos % (Auto) Lymph # [place] # Eos # Seg Neutrophils % Seg Neuts % (Manual) Lymphocytes % (Manual) Monocytes % (Manual) Eosinophils % (Manual) Nucleated RBC % Seg Neutrophils # Seg Neutrophils # Man Lymphocytes # (Manual) Monocytes # (Manual) Eosinophils # (Manual) PT INR APTT POC ABG pH ABG pH POC ABG pCO2 POC ABG pO2 ABG pO2 ABG HCO3 ABG O2 Saturation ABG Base Excess ABG Hemoglobin Oxyhemoglobin Sodium Potassium Chloride Carbon Dioxide BUN 73 H Creatinine 2.4 H Glucose 153 H POC Glucose 123 H 148 H Uric Acid Calcium 8.2 L Phosphorus Magnesium AST 45 H ALT Total Creatine Kinase CK-MB (CK-2) Troponin T NT-Pro-B Natriuret Pep Total Protein 6.0 L Albumin 1.9 L Triglycerides HDL Cholesterol Urine WBC (Auto) Urine Creatinine Urine Total Protein Vancomycin Trough 05/09/19 05/09/19 05/10/19 18:23 23:26 04:52 WBC RBC Hgb Hct MCV MCH MCHC RDW Lymph % (Auto) [place] % (Auto) Eos % (Auto) Lymph # [place] # Eos # Seg Neutrophils % Seg Neuts % (Manual) Lymphocytes % (Manual) Monocytes % (Manual) Eosinophils % (Manual) Nucleated RBC % Seg Neutrophils # Seg Neutrophils # Man Lymphocytes # (Manual) Monocytes # (Manual) Eosinophils # (Manual) PT INR APTT POC ABG pH 7.305 L ABG pH POC ABG pCO2 62.6 H POC ABG pO2 ABG pO2 ABG HCO3 ABG O2 Saturation ABG Base Excess ABG Hemoglobin Oxyhemoglobin Sodium Potassium Chloride Carbon Dioxide BUN Creatinine Glucose POC Glucose 147 H 121 H Uric Acid Calcium Phosphorus Magnesium AST ALT Total Creatine Kinase CK-MB (CK-2) Troponin T NT-Pro-B Natriuret Pep Total Protein Albumin Triglycerides HDL Cholesterol Urine WBC (Auto) Urine Creatinine Urine Total Protein Vancomycin Trough 05/10/19 05/10/19 05/10/19 05:00 05:00 05:50 WBC RBC Hgb 10.3 L Hct 33.7 L MCV MCH 27 L MCHC 31 L RDW 17.0 H Lymph % (Auto) [place] % (Auto) Eos % (Auto) Lymph # [place] # Eos # Seg Neutrophils % Seg Neuts % (Manual) Lymphocytes % (Manual) Monocytes % (Manual) Eosinophils % (Manual) Nucleated RBC % Seg Neutrophils # Seg Neutrophils # Man Lymphocytes # (Manual) Monocytes # (Manual) Eosinophils # (Manual) PT INR APTT POC ABG pH ABG pH POC ABG pCO2 POC ABG pO2 ABG pO2 ABG HCO3 ABG O2 Saturation ABG Base Excess ABG Hemoglobin Oxyhemoglobin Sodium 147 H Potassium Chloride Carbon Dioxide BUN 70 H Creatinine 2.6 H Glucose 155 H POC Glucose 158 H Uric Acid Calcium 8.2 L Phosphorus Magnesium AST ALT Total Creatine Kinase CK-MB (CK-2) Troponin T NT-Pro-B Natriuret Pep Total Protein 6.1 L Albumin 2.5 L Triglycerides HDL Cholesterol Urine WBC (Auto) Urine Creatinine Urine Total Protein Vancomycin Trough 05/10/19 05/11/19 05/11/19 13:14 07:26 11:40 WBC RBC Hgb Hct MCV MCH MCHC RDW Lymph % (Auto) [place] % (Auto) Eos % (Auto) Lymph # [place] # Eos # Seg Neutrophils % Seg Neuts % (Manual) Lymphocytes % (Manual) Monocytes % (Manual) Eosinophils % (Manual) Nucleated RBC % Seg Neutrophils # Seg Neutrophils # Man Lymphocytes # (Manual) Monocytes # (Manual) Eosinophils # (Manual) PT INR APTT POC ABG pH ABG pH POC ABG pCO2 48.0 H POC ABG pO2 58 L ABG pO2 ABG HCO3 ABG O2 Saturation ABG Base Excess ABG Hemoglobin Oxyhemoglobin Sodium 147 H Potassium Chloride 107.2 H Carbon Dioxide BUN 67 H Creatinine 2.6 H Glucose 121 H POC Glucose 159 H Uric Acid Calcium Phosphorus Magnesium AST ALT Total Creatine Kinase CK-MB (CK-2) Troponin T NT-Pro-B Natriuret Pep Total Protein Albumin Triglycerides HDL Cholesterol Urine WBC (Auto) Urine Creatinine Urine Total Protein Vancomycin Trough 05/11/19 05/11/19 05/12/19 18:13 23:46 04:40 WBC RBC Hgb Hct MCV MCH MCHC RDW Lymph % (Auto) [place] % (Auto) Eos % (Auto) Lymph # [place] # Eos # Seg Neutrophils % Seg Neuts % (Manual) Lymphocytes % (Manual) Monocytes % (Manual) Eosinophils % (Manual) Nucleated RBC % Seg Neutrophils # Seg Neutrophils # Man Lymphocytes # (Manual) Monocytes # (Manual) Eosinophils # (Manual) PT INR APTT POC ABG pH ABG pH 7.264 L POC ABG pCO2 POC ABG pO2 ABG pO2 66.8 L ABG HCO3 31.0 H ABG O2 Saturation 92.0 L ABG Base Excess ABG Hemoglobin 10.3 L Oxyhemoglobin 90.1 L Sodium Potassium Chloride Carbon Dioxide BUN Creatinine Glucose POC Glucose 120 H 121 H Uric Acid Calcium Phosphorus Magnesium AST ALT Total Creatine Kinase CK-MB (CK-2) Troponin T NT-Pro-B Natriuret Pep Total Protein Albumin Triglycerides HDL Cholesterol Urine WBC (Auto) Urine Creatinine Urine Total Protein Vancomycin Trough 05/12/19 05/12/19 05/12/19 04:45 04:45 11:14 WBC RBC Hgb 10.2 L Hct 32.4 L MCV MCH MCHC 31 L RDW 17.2 H Lymph % (Auto) [place] % (Auto) Eos % (Auto) Lymph # [place] # Eos # Seg Neutrophils % Seg Neuts % (Manual) Lymphocytes % (Manual) Monocytes % (Manual) Eosinophils % (Manual) Nucleated RBC % Seg Neutrophils # Seg Neutrophils # Man Lymphocytes # (Manual) Monocytes # (Manual) Eosinophils # (Manual) PT INR APTT POC ABG pH 7.284 L ABG pH POC ABG pCO2 67.8 H POC ABG pO2 ABG pO2 ABG HCO3 ABG O2 Saturation ABG Base Excess ABG Hemoglobin Oxyhemoglobin Sodium Potassium Chloride Carbon Dioxide BUN 63 H Creatinine 2.4 H Glucose 110 H POC Glucose Uric Acid Calcium Phosphorus Magnesium AST ALT Total Creatine Kinase CK-MB (CK-2) Troponin T NT-Pro-B Natriuret Pep Total Protein Albumin Triglycerides HDL Cholesterol Urine WBC (Auto) Urine Creatinine Urine Total Protein Vancomycin Trough 05/12/19 05/12/19 05/13/19 11:44 23:11 04:30 WBC RBC Hgb Hct MCV MCH MCHC RDW Lymph % (Auto) [place] % (Auto) Eos % (Auto) Lymph # [place] # Eos # Seg Neutrophils % Seg Neuts % (Manual) Lymphocytes % (Manual) Monocytes % (Manual) Eosinophils % (Manual) Nucleated RBC % Seg Neutrophils # Seg Neutrophils # Man Lymphocytes # (Manual) Monocytes # (Manual) Eosinophils # (Manual) PT INR APTT POC ABG pH ABG pH 7.288 L POC ABG pCO2 POC ABG pO2 ABG pO2 109.7 H ABG HCO3 30.9 H ABG O2 Saturation ABG Base Excess 3.2 H ABG Hemoglobin 9.6 L Oxyhemoglobin Sodium Potassium Chloride Carbon Dioxide BUN Creatinine Glucose POC Glucose 126 H 147 H Uric Acid Calcium Phosphorus Magnesium AST ALT Total Creatine Kinase CK-MB (CK-2) Troponin T NT-Pro-B Natriuret Pep Total Protein Albumin Triglycerides HDL Cholesterol Urine WBC (Auto) Urine Creatinine Urine Total Protein Vancomycin Trough 05/13/19 05/13/19 05/14/19 06:27 11:58 04:00 WBC RBC 3.16 L Hgb 9.3 L Hct 27.9 L MCV MCH MCHC RDW 17.1 H Lymph % (Auto) [place] % (Auto) Eos % (Auto) Lymph # [place] # Eos # Seg Neutrophils % Seg Neuts % (Manual) Lymphocytes % (Manual) Monocytes % (Manual) Eosinophils % (Manual) Nucleated RBC % Seg Neutrophils # Seg Neutrophils # Man Lymphocytes # (Manual) Monocytes # (Manual) Eosinophils # (Manual) PT INR APTT POC ABG pH ABG pH POC ABG pCO2 POC ABG pO2 ABG pO2 ABG HCO3 ABG O2 Saturation ABG Base Excess ABG Hemoglobin Oxyhemoglobin Sodium Potassium Chloride Carbon Dioxide BUN Creatinine Glucose POC Glucose 113 H 130 H Uric Acid Calcium Phosphorus Magnesium AST ALT Total Creatine Kinase CK-MB (CK-2) Troponin T NT-Pro-B Natriuret Pep Total Protein Albumin Triglycerides HDL Cholesterol Urine WBC (Auto) Urine Creatinine Urine Total Protein Vancomycin Trough 05/14/19 05/14/19 05/14/19 04:00 04:34 05:32 WBC RBC Hgb Hct MCV MCH MCHC RDW Lymph % (Auto) [place] % (Auto) Eos % (Auto) Lymph # [place] # Eos # Seg Neutrophils % Seg Neuts % (Manual) Lymphocytes % (Manual) Monocytes % (Manual) Eosinophils % (Manual) Nucleated RBC % Seg Neutrophils # Seg Neutrophils # Man Lymphocytes # (Manual) Monocytes # (Manual) Eosinophils # (Manual) PT INR APTT POC ABG pH 7.328 L ABG pH POC ABG pCO2 61.7 H POC ABG pO2 ABG pO2 ABG HCO3 ABG O2 Saturation ABG Base Excess ABG Hemoglobin Oxyhemoglobin Sodium 135 L D Potassium Chloride Carbon Dioxide BUN 57 H Creatinine 2.2 H Glucose 115 H POC Glucose 115 H Uric Acid Calcium 8.1 L Phosphorus Magnesium AST ALT Total Creatine Kinase CK-MB (CK-2) Troponin T NT-Pro-B Natriuret Pep Total Protein Albumin Triglycerides HDL Cholesterol Urine WBC (Auto) Urine Creatinine Urine Total Protein Vancomycin Trough 05/14/19 05/15/19 05/15/19 12:11 05:10 05:24 WBC RBC Hgb Hct MCV MCH MCHC RDW Lymph % (Auto) [place] % (Auto) Eos % (Auto) Lymph # [place] # Eos # Seg Neutrophils % Seg Neuts % (Manual) Lymphocytes % (Manual) Monocytes % (Manual) Eosinophils % (Manual) Nucleated RBC % Seg Neutrophils # Seg Neutrophils # Man Lymphocytes # (Manual) Monocytes # (Manual) Eosinophils # (Manual) PT INR APTT POC ABG pH ABG pH 7.342 L POC ABG pCO2 POC ABG pO2 ABG pO2 79.1 L ABG HCO3 28.2 H ABG O2 Saturation ABG Base Excess ABG Hemoglobin 7.0 L Oxyhemoglobin 94.4 L Sodium Potassium Chloride Carbon Dioxide BUN Creatinine Glucose POC Glucose 110 H 116 H Uric Acid Calcium Phosphorus Magnesium AST ALT Total Creatine Kinase CK-MB (CK-2) Troponin T NT-Pro-B Natriuret Pep Total Protein Albumin Triglycerides HDL Cholesterol Urine WBC (Auto) Urine Creatinine Urine Total Protein Vancomycin Trough 05/15/19 05/15/19 05/16/19 09:00 18:12 04:50 WBC RBC Hgb Hct MCV MCH MCHC RDW Lymph % (Auto) [place] % (Auto) Eos % (Auto) Lymph # [place] # Eos # Seg Neutrophils % Seg Neuts % (Manual) Lymphocytes % (Manual) Monocytes % (Manual) Eosinophils % (Manual) Nucleated RBC % Seg Neutrophils # Seg Neutrophils # Man Lymphocytes # (Manual) Monocytes # (Manual) Eosinophils # (Manual) PT INR APTT POC ABG pH ABG pH 7.250 L POC ABG pCO2 POC ABG pO2 ABG pO2 76.4 L ABG HCO3 ABG O2 Saturation 94.6 L ABG Base Excess -3.1 L ABG Hemoglobin 9.7 L Oxyhemoglobin 92.4 L Sodium Potassium Chloride Carbon Dioxide BUN Creatinine Glucose POC Glucose 110 H Uric Acid Calcium Phosphorus Magnesium AST ALT Total Creatine Kinase CK-MB (CK-2) Troponin T NT-Pro-B Natriuret Pep Total Protein Albumin Triglycerides HDL Cholesterol Urine WBC (Auto) Urine Creatinine Urine Total Protein Vancomycin Trough 20.5 H 05/16/19 05/16/19 05/17/19 05:50 05:50 04:20 WBC RBC 3.36 L 3.44 L Hgb 9.4 L 9.3 L Hct 29.1 L 29.7 L MCV MCH 27 L MCHC 31 L RDW 17.6 H 17.6 H Lymph % (Auto) [place] % (Auto) Eos % (Auto) Lymph # [place] # Eos # Seg Neutrophils % Seg Neuts % (Manual) 77.0 H Lymphocytes % (Manual) 5.0 L Monocytes % (Manual) Eosinophils % (Manual) 10.0 H Nucleated RBC % Seg Neutrophils # Seg Neutrophils # Man Lymphocytes # (Manual) 0.5 L Monocytes # (Manual) Eosinophils # (Manual) 0.9 H PT INR APTT POC ABG pH ABG pH POC ABG pCO2 POC ABG pO2 ABG pO2 ABG HCO3 ABG O2 Saturation ABG Base Excess ABG Hemoglobin Oxyhemoglobin Sodium Potassium Chloride Carbon Dioxide BUN 83 H Creatinine 4.4 H D Glucose 118 H POC Glucose Uric Acid Calcium Phosphorus Magnesium AST ALT Total Creatine Kinase CK-MB (CK-2) Troponin T NT-Pro-B Natriuret Pep Total Protein Albumin Triglycerides HDL Cholesterol Urine WBC (Auto) Urine Creatinine Urine Total Protein Vancomycin Trough 05/17/19 05/17/19 05/18/19 04:30 Unknown 01:50 WBC RBC 3.49 L Hgb 9.4 L Hct 30.0 L MCV MCH 27 L MCHC 31 L RDW 17.8 H Lymph % (Auto) 7.9 L [place] % (Auto) 15.4 H Eos % (Auto) 6.3 H Lymph # 0.7 L [place] # 1.4 H Eos # 0.6 H Seg Neutrophils % 70.2 H Seg Neuts % (Manual) Lymphocytes % (Manual) Monocytes % (Manual) Eosinophils % (Manual) Nucleated RBC % Seg Neutrophils # Seg Neutrophils # Man Lymphocytes # (Manual) Monocytes # (Manual) Eosinophils # (Manual) PT INR APTT POC ABG pH ABG pH 7.272 L POC ABG pCO2 POC ABG pO2 ABG pO2 75.7 L ABG HCO3 ABG O2 Saturation 93.8 L ABG Base Excess -3.0 L ABG Hemoglobin 7.8 L Oxyhemoglobin 91.6 L Sodium Potassium 5.2 H Chloride Carbon Dioxide BUN 96 H Creatinine 5.7 H Glucose 112 H POC Glucose Uric Acid Calcium Phosphorus Magnesium AST ALT Total Creatine Kinase CK-MB (CK-2) Troponin T NT-Pro-B Natriuret Pep Total Protein Albumin Triglycerides 173 H HDL Cholesterol Urine WBC (Auto) Urine Creatinine Urine Total Protein Vancomycin Trough 05/18/19 05/18/19 05/18/19 01:50 04:41 05:24 WBC RBC Hgb Hct MCV MCH MCHC RDW Lymph % (Auto) [place] % (Auto) Eos % (Auto) Lymph # [place] # Eos # Seg Neutrophils % Seg Neuts % (Manual) Lymphocytes % (Manual) Monocytes % (Manual) Eosinophils % (Manual) Nucleated RBC % Seg Neutrophils # Seg Neutrophils # Man Lymphocytes # (Manual) Monocytes # (Manual) Eosinophils # (Manual) PT INR APTT POC ABG pH 7.260 L ABG pH POC ABG pCO2 54.9 H POC ABG pO2 ABG pO2 ABG HCO3 ABG O2 Saturation ABG Base Excess ABG Hemoglobin Oxyhemoglobin Sodium Potassium 5.6 H Chloride Carbon Dioxide BUN 104 H Creatinine 6.6 H Glucose 107 H POC Glucose 106 H Uric Acid Calcium Phosphorus Magnesium AST ALT Total Creatine Kinase CK-MB (CK-2) Troponin T NT-Pro-B Natriuret Pep Total Protein Albumin Triglycerides HDL Cholesterol Urine WBC (Auto) Urine Creatinine Urine Total Protein Vancomycin Trough 05/18/19 05/18/19 05/19/19 11:34 23:26 04:06 WBC RBC 3.22 L Hgb 8.8 L Hct 27.3 L MCV MCH 27 L MCHC RDW 17.5 H Lymph % (Auto) [place] % (Auto) Eos % (Auto) Lymph # [place] # Eos # Seg Neutrophils % Seg Neuts % (Manual) 74.0 H Lymphocytes % (Manual) 4.0 L Monocytes % (Manual) 11.0 H Eosinophils % (Manual) 7.0 H Nucleated RBC % 1.0 H Seg Neutrophils # Seg Neutrophils # Man Lymphocytes # (Manual) 0.3 L Monocytes # (Manual) 0.9 H Eosinophils # (Manual) 0.6 H PT INR APTT POC ABG pH ABG pH POC ABG pCO2 POC ABG pO2 ABG pO2 ABG HCO3 ABG O2 Saturation ABG Base Excess ABG Hemoglobin Oxyhemoglobin Sodium Potassium Chloride Carbon Dioxide BUN Creatinine Glucose POC Glucose 152 H 112 H Uric Acid Calcium Phosphorus Magnesium AST ALT Total Creatine Kinase CK-MB (CK-2) Troponin T NT-Pro-B Natriuret Pep Total Protein Albumin Triglycerides HDL Cholesterol Urine WBC (Auto) Urine Creatinine Urine Total Protein Vancomycin Trough 05/19/19 05/19/19 05/20/19 04:06 06:00 04:00 WBC RBC 3.40 L Hgb 9.2 L Hct 28.6 L MCV MCH 27 L MCHC RDW 17.6 H Lymph % (Auto) [place] % (Auto) Eos % (Auto) Lymph # [place] # Eos # Seg Neutrophils % Seg Neuts % (Manual) Lymphocytes % (Manual) 11.0 L Monocytes % (Manual) Eosinophils % (Manual) 14.0 H Nucleated RBC % Seg Neutrophils # Seg Neutrophils # Man Lymphocytes # (Manual) 1.1 L Monocytes # (Manual) Eosinophils # (Manual) 1.4 H PT INR APTT POC ABG pH ABG pH 7.315 L POC ABG pCO2 POC ABG pO2 ABG pO2 ABG HCO3 ABG O2 Saturation ABG Base Excess ABG Hemoglobin 6.7 L Oxyhemoglobin 94.1 L Sodium Potassium 5.2 H Chloride Carbon Dioxide 21 L BUN 110 H Creatinine 7.2 H Glucose POC Glucose Uric Acid Calcium 8.3 L Phosphorus Magnesium AST ALT Total Creatine Kinase CK-MB (CK-2) Troponin T NT-Pro-B Natriuret Pep Total Protein Albumin Triglycerides HDL Cholesterol Urine WBC (Auto) Urine Creatinine Urine Total Protein Vancomycin Trough 05/20/19 05/20/19 05/20/19 04:00 05:48 12:00 WBC RBC Hgb Hct MCV MCH MCHC RDW Lymph % (Auto) [place] % (Auto) Eos % (Auto) Lymph # [place] # Eos # Seg Neutrophils % Seg Neuts % (Manual) Lymphocytes % (Manual) Monocytes % (Manual) Eosinophils % (Manual) Nucleated RBC % Seg Neutrophils # Seg Neutrophils # Man Lymphocytes # (Manual) Monocytes # (Manual) Eosinophils # (Manual) PT INR APTT POC ABG pH ABG pH 7.281 L POC ABG pCO2 POC ABG pO2 ABG pO2 78.7 L ABG HCO3 ABG O2 Saturation 94.5 L ABG Base Excess -3.0 L ABG Hemoglobin 9.9 L Oxyhemoglobin 92.5 L Sodium 136 L Potassium 5.7 H Chloride 96.3 L Carbon Dioxide BUN 125 H Creatinine 8.3 H Glucose 106 H POC Glucose Uric Acid Calcium Phosphorus Magnesium AST ALT Total Creatine Kinase CK-MB (CK-2) Troponin T NT-Pro-B Natriuret Pep Total Protein Albumin Triglycerides HDL Cholesterol Urine WBC (Auto) 26.0 H Urine Creatinine Urine Total Protein Vancomycin Trough 05/21/19 05/21/19 05/21/19 04:33 05:20 Unknown WBC RBC 3.38 L Hgb 9.1 L Hct 28.5 L MCV MCH 27 L MCHC RDW 17.4 H Lymph % (Auto) [place] % (Auto) Eos % (Auto) Lymph # [place] # Eos # Seg Neutrophils % Seg Neuts % (Manual) 71.0 H Lymphocytes % (Manual) 1.0 L Monocytes % (Manual) 11.0 H Eosinophils % (Manual) 6.0 H Nucleated RBC % Seg Neutrophils # Seg Neutrophils # Man Lymphocytes # (Manual) 0.1 L Monocytes # (Manual) 1.0 H Eosinophils # (Manual) 0.6 H PT INR APTT POC ABG pH 7.315 L ABG pH POC ABG pCO2 57.8 H POC ABG pO2 68 L ABG pO2 ABG HCO3 ABG O2 Saturation ABG Base Excess ABG Hemoglobin Oxyhemoglobin Sodium Potassium Chloride 96.3 L Carbon Dioxide BUN 102 H Creatinine 7.0 H Glucose 103 H POC Glucose Uric Acid Calcium Phosphorus Magnesium AST ALT Total Creatine Kinase CK-MB (CK-2) Troponin T NT-Pro-B Natriuret Pep Total Protein Albumin Triglycerides HDL Cholesterol Urine WBC (Auto) Urine Creatinine Urine Total Protein Vancomycin Trough 05/22/19 05/22/19 05/22/19 03:54 06:25 06:25 WBC RBC 3.22 L Hgb 8.6 L Hct 27.0 L MCV MCH 27 L MCHC RDW 17.5 H Lymph % (Auto) [place] % (Auto) 16.2 H Eos % (Auto) 10.8 H Lymph # [place] # 1.3 H Eos # 0.9 H Seg Neutrophils % Seg Neuts % (Manual) Lymphocytes % (Manual) 10.0 L Monocytes % (Manual) 13.0 H Eosinophils % (Manual) 8.0 H Nucleated RBC % Seg Neutrophils # Seg Neutrophils # Man Lymphocytes # (Manual) 0.9 L Monocytes # (Manual) 1.1 H Eosinophils # (Manual) 0.7 H PT INR APTT POC ABG pH 7.313 L ABG pH POC ABG pCO2 55.0 H POC ABG pO2 ABG pO2 ABG HCO3 ABG O2 Saturation ABG Base Excess ABG Hemoglobin Oxyhemoglobin Sodium 135 L Potassium Chloride 94.3 L Carbon Dioxide BUN 117 H Creatinine 7.8 H Glucose POC Glucose Uric Acid Calcium 8.2 L Phosphorus Magnesium AST ALT Total Creatine Kinase CK-MB (CK-2) Troponin T NT-Pro-B Natriuret Pep Total Protein Albumin Triglycerides HDL Cholesterol Urine WBC (Auto) Urine Creatinine Urine Total Protein Vancomycin Trough 05/23/19 05/24/19 05/24/19 05:21 05:00 05:00 WBC RBC 3.18 L Hgb 8.5 L Hct 26.7 L MCV MCH 27 L MCHC RDW 17.9 H Lymph % (Auto) [place] % (Auto) Eos % (Auto) Lymph # [place] # Eos # Seg Neutrophils % Seg Neuts % (Manual) Lymphocytes % (Manual) Monocytes % (Manual) Eosinophils % (Manual) Nucleated RBC % Seg Neutrophils # Seg Neutrophils # Man Lymphocytes # (Manual) Monocytes # (Manual) Eosinophils # (Manual) PT INR APTT POC ABG pH ABG pH POC ABG pCO2 49.7 H POC ABG pO2 73 L ABG pO2 ABG HCO3 ABG O2 Saturation ABG Base Excess ABG Hemoglobin Oxyhemoglobin Sodium Potassium Chloride 95.7 L Carbon Dioxide BUN 97 H Creatinine 6.5 H Glucose POC Glucose Uric Acid Calcium 8.0 L Phosphorus Magnesium AST ALT Total Creatine Kinase CK-MB (CK-2) Troponin T NT-Pro-B Natriuret Pep Total Protein Albumin Triglycerides HDL Cholesterol Urine WBC (Auto) Urine Creatinine Urine Total Protein Vancomycin Trough 05/24/19 05/25/19 05/25/19 06:17 04:22 15:45 WBC RBC 2.98 L Hgb 8.1 L Hct 24.9 L MCV MCH 27 L MCHC RDW 17.8 H Lymph % (Auto) [place] % (Auto) Eos % (Auto) Lymph # [place] # Eos # Seg Neutrophils % Seg Neuts % (Manual) Lymphocytes % (Manual) Monocytes % (Manual) Eosinophils % (Manual) Nucleated RBC % Seg Neutrophils # Seg Neutrophils # Man Lymphocytes # (Manual) Monocytes # (Manual) Eosinophils # (Manual) PT INR APTT POC ABG pH 7.330 L 7.313 L ABG pH POC ABG pCO2 52.5 H 51.1 H POC ABG pO2 77 L ABG pO2 ABG HCO3 ABG O2 Saturation ABG Base Excess ABG Hemoglobin Oxyhemoglobin Sodium Potassium Chloride Carbon Dioxide BUN Creatinine Glucose POC Glucose Uric Acid Calcium Phosphorus Magnesium AST ALT Total Creatine Kinase CK-MB (CK-2) Troponin T NT-Pro-B Natriuret Pep Total Protein Albumin Triglycerides HDL Cholesterol Urine WBC (Auto) Urine Creatinine Urine Total Protein Vancomycin Trough 05/25/19 05/26/19 05/26/19 15:45 04:13 05:00 WBC RBC 3.10 L Hgb 8.4 L Hct 26.0 L MCV MCH 27 L MCHC RDW 17.4 H Lymph % (Auto) [place] % (Auto) Eos % (Auto) Lymph # [place] # Eos # Seg Neutrophils % Seg Neuts % (Manual) Lymphocytes % (Manual) Monocytes % (Manual) Eosinophils % (Manual) Nucleated RBC % Seg Neutrophils # Seg Neutrophils # Man Lymphocytes # (Manual) Monocytes # (Manual) Eosinophils # (Manual) PT INR APTT POC ABG pH 7.295 L ABG pH POC ABG pCO2 56.5 H POC ABG pO2 63 L ABG pO2 ABG HCO3 ABG O2 Saturation ABG Base Excess ABG Hemoglobin Oxyhemoglobin Sodium 136 L Potassium Chloride 96.8 L Carbon Dioxide BUN 83 H Creatinine 5.9 H Glucose POC Glucose Uric Acid Calcium 7.6 L Phosphorus Magnesium AST ALT Total Creatine Kinase CK-MB (CK-2) Troponin T NT-Pro-B Natriuret Pep Total Protein Albumin Triglycerides HDL Cholesterol Urine WBC (Auto) Urine Creatinine Urine Total Protein Vancomycin Trough 05/26/19 05/27/19 05/28/19 05:00 04:48 04:47 WBC RBC Hgb Hct MCV MCH MCHC RDW Lymph % (Auto) [place] % (Auto) Eos % (Auto) Lymph # [place] # Eos # Seg Neutrophils % Seg Neuts % (Manual) Lymphocytes % (Manual) Monocytes % (Manual) Eosinophils % (Manual) Nucleated RBC % Seg Neutrophils # Seg Neutrophils # Man Lymphocytes # (Manual) Monocytes # (Manual) Eosinophils # (Manual) PT INR APTT POC ABG pH 7.323 L ABG pH 7.284 L POC ABG pCO2 56.2 H POC ABG pO2 ABG pO2 71.6 L ABG HCO3 ABG O2 Saturation 92.0 L ABG Base Excess ABG Hemoglobin 7.7 L Oxyhemoglobin 89.9 L Sodium 136 L Potassium Chloride 95.3 L Carbon Dioxide BUN 96 H Creatinine 6.5 H Glucose 108 H POC Glucose Uric Acid Calcium 7.6 L Phosphorus Magnesium AST ALT Total Creatine Kinase CK-MB (CK-2) Troponin T NT-Pro-B Natriuret Pep Total Protein Albumin Triglycerides HDL Cholesterol Urine WBC (Auto) Urine Creatinine Urine Total Protein Vancomycin Trough 05/28/19 05/29/19 05/29/19 12:30 12:47 23:44 WBC RBC Hgb Hct MCV MCH MCHC RDW Lymph % (Auto) [place] % (Auto) Eos % (Auto) Lymph # [place] # Eos # Seg Neutrophils % Seg Neuts % (Manual) Lymphocytes % (Manual) Monocytes % (Manual) Eosinophils % (Manual) Nucleated RBC % Seg Neutrophils # Seg Neutrophils # Man Lymphocytes # (Manual) Monocytes # (Manual) Eosinophils # (Manual) PT INR APTT POC ABG pH ABG pH POC ABG pCO2 POC ABG pO2 ABG pO2 ABG HCO3 ABG O2 Saturation ABG Base Excess ABG Hemoglobin Oxyhemoglobin Sodium 135 L Potassium Chloride 95.3 L Carbon Dioxide BUN 82 H Creatinine 6.0 H Glucose POC Glucose 136 H 159 H Uric Acid Calcium 7.5 L Phosphorus Magnesium AST ALT Total Creatine Kinase CK-MB (CK-2) Troponin T NT-Pro-B Natriuret Pep Total Protein Albumin Triglycerides HDL Cholesterol Urine WBC (Auto) Urine Creatinine Urine Total Protein Vancomycin Trough 05/30/19 05/30/19 05/30/19 04:30 05:38 12:00 WBC RBC 3.01 L Hgb 8.2 L Hct 25.3 L MCV MCH 27 L MCHC RDW 17.5 H Lymph % (Auto) [place] % (Auto) Eos % (Auto) Lymph # [place] # Eos # Seg Neutrophils % Seg Neuts % (Manual) 80.0 H Lymphocytes % (Manual) 10.0 L Monocytes % (Manual) Eosinophils % (Manual) Nucleated RBC % Seg Neutrophils # Seg Neutrophils # Man 8.0 H Lymphocytes # (Manual) 1.0 L Monocytes # (Manual) Eosinophils # (Manual) PT INR APTT POC ABG pH ABG pH POC ABG pCO2 POC ABG pO2 73 L ABG pO2 ABG HCO3 ABG O2 Saturation ABG Base Excess ABG Hemoglobin Oxyhemoglobin Sodium Potassium Chloride Carbon Dioxide BUN Creatinine Glucose POC Glucose 166 H Uric Acid Calcium Phosphorus Magnesium AST ALT Total Creatine Kinase CK-MB (CK-2) Troponin T NT-Pro-B Natriuret Pep Total Protein Albumin Triglycerides HDL Cholesterol Urine WBC (Auto) Urine Creatinine Urine Total Protein Vancomycin Trough 05/30/19 05/31/19 05/31/19 23:45 04:07 13:04 WBC 14.3 H RBC 2.88 L Hgb 7.7 L Hct 23.9 L MCV 83 L MCH 27 L MCHC RDW 17.8 H Lymph % (Auto) [place] % (Auto) Eos % (Auto) Lymph # [place] # Eos # Seg Neutrophils % Seg Neuts % (Manual) 83.0 H Lymphocytes % (Manual) 11.0 L Monocytes % (Manual) Eosinophils % (Manual) Nucleated RBC % Seg Neutrophils # Seg Neutrophils # Man 11.9 H Lymphocytes # (Manual) Monocytes # (Manual) 0.9 H Eosinophils # (Manual) PT INR APTT POC ABG pH ABG pH POC ABG pCO2 47.4 H POC ABG pO2 ABG pO2 ABG HCO3 ABG O2 Saturation ABG Base Excess ABG Hemoglobin Oxyhemoglobin Sodium Potassium Chloride Carbon Dioxide BUN Creatinine Glucose POC Glucose 209 H Uric Acid Calcium Phosphorus Magnesium AST ALT Total Creatine Kinase CK-MB (CK-2) Troponin T NT-Pro-B Natriuret Pep Total Protein Albumin Triglycerides HDL Cholesterol Urine WBC (Auto) Urine Creatinine Urine Total Protein Vancomycin Trough 05/31/19 05/31/19 06/01/19 13:04 16:42 00:15 WBC RBC Hgb Hct MCV MCH MCHC RDW Lymph % (Auto) [place] % (Auto) Eos % (Auto) Lymph # [place] # Eos # Seg Neutrophils % Seg Neuts % (Manual) Lymphocytes % (Manual) Monocytes % (Manual) Eosinophils % (Manual) Nucleated RBC % Seg Neutrophils # Seg Neutrophils # Man Lymphocytes # (Manual) Monocytes # (Manual) Eosinophils # (Manual) PT INR APTT POC ABG pH ABG pH POC ABG pCO2 POC ABG pO2 ABG pO2 ABG HCO3 ABG O2 Saturation ABG Base Excess ABG Hemoglobin Oxyhemoglobin Sodium 129 L Potassium Chloride 88.6 L Carbon Dioxide 19 L BUN 117 H Creatinine 6.7 H Glucose 205 H POC Glucose 228 H 223 H Uric Acid Calcium 7.4 L Phosphorus 7.40 H Magnesium AST 58 H ALT 149 H Total Creatine Kinase CK-MB (CK-2) Troponin T NT-Pro-B Natriuret Pep Total Protein 6.0 L Albumin 2.5 L Triglycerides HDL Cholesterol Urine WBC (Auto) Urine Creatinine Urine Total Protein Vancomycin Trough 06/01/19 06/01/19 06/01/19 04:33 05:27 12:31 WBC RBC Hgb Hct MCV MCH MCHC RDW Lymph % (Auto) [place] % (Auto) Eos % (Auto) Lymph # [place] # Eos # Seg Neutrophils % Seg Neuts % (Manual) Lymphocytes % (Manual) Monocytes % (Manual) Eosinophils % (Manual) Nucleated RBC % Seg Neutrophils # Seg Neutrophils # Man Lymphocytes # (Manual) Monocytes # (Manual) Eosinophils # (Manual) PT INR APTT POC ABG pH ABG pH POC ABG pCO2 POC ABG pO2 ABG pO2 56.9 L ABG HCO3 ABG O2 Saturation 85.9 L ABG Base Excess ABG Hemoglobin 8.1 L Oxyhemoglobin 83.6 L Sodium Potassium Chloride Carbon Dioxide BUN Creatinine Glucose POC Glucose 183 H 217 H Uric Acid Calcium Phosphorus Magnesium AST ALT Total Creatine Kinase CK-MB (CK-2) Troponin T NT-Pro-B Natriuret Pep Total Protein Albumin Triglycerides HDL Cholesterol Urine WBC (Auto) Urine Creatinine Urine Total Protein Vancomycin Trough 06/01/19 06/02/19 06/02/19 18:20 00:00 05:33 WBC RBC Hgb Hct MCV MCH MCHC RDW Lymph % (Auto) [place] % (Auto) Eos % (Auto) Lymph # [place] # Eos # Seg Neutrophils % Seg Neuts % (Manual) Lymphocytes % (Manual) Monocytes % (Manual) Eosinophils % (Manual) Nucleated RBC % Seg Neutrophils # Seg Neutrophils # Man Lymphocytes # (Manual) Monocytes # (Manual) Eosinophils # (Manual) PT INR APTT POC ABG pH ABG pH POC ABG pCO2 POC ABG pO2 ABG pO2 ABG HCO3 ABG O2 Saturation ABG Base Excess ABG Hemoglobin Oxyhemoglobin Sodium Potassium Chloride Carbon Dioxide BUN Creatinine Glucose POC Glucose 265 H 279 H 259 H Uric Acid Calcium Phosphorus Magnesium AST ALT Total Creatine Kinase CK-MB (CK-2) Troponin T NT-Pro-B Natriuret Pep Total Protein Albumin Triglycerides HDL Cholesterol Urine WBC (Auto) Urine Creatinine Urine Total Protein Vancomycin Trough 06/02/19 06/02/19 06/02/19 11:06 11:06 11:42 WBC 13.1 H RBC 2.92 L Hgb 7.9 L Hct 24.4 L MCV MCH 27 L MCHC RDW 17.4 H Lymph % (Auto) [place] % (Auto) Eos % (Auto) Lymph # [place] # Eos # Seg Neutrophils % Seg Neuts % (Manual) 78.0 H Lymphocytes % (Manual) 12.0 L Monocytes % (Manual) 10.0 H Eosinophils % (Manual) Nucleated RBC % Seg Neutrophils # Seg Neutrophils # Man 10.2 H Lymphocytes # (Manual) Monocytes # (Manual) 1.3 H Eosinophils # (Manual) PT INR APTT POC ABG pH ABG pH POC ABG pCO2 POC ABG pO2 ABG pO2 ABG HCO3 ABG O2 Saturation ABG Base Excess ABG Hemoglobin Oxyhemoglobin Sodium 135 L Potassium Chloride 94.7 L Carbon Dioxide 21 L BUN 107 H Creatinine 4.5 H Glucose 286 H POC Glucose 263 H Uric Acid Calcium 7.9 L Phosphorus 6.30 H Magnesium AST ALT 104 H Total Creatine Kinase CK-MB (CK-2) Troponin T NT-Pro-B Natriuret Pep Total Protein 6.0 L Albumin 2.7 L Triglycerides HDL Cholesterol Urine WBC (Auto) Urine Creatinine Urine Total Protein Vancomycin Trough 06/02/19 06/02/19 06/03/19 18:17 23:55 05:30 WBC RBC Hgb Hct MCV MCH MCHC RDW Lymph % (Auto) [place] % (Auto) Eos % (Auto) Lymph # [place] # Eos # Seg Neutrophils % Seg Neuts % (Manual) Lymphocytes % (Manual) Monocytes % (Manual) Eosinophils % (Manual) Nucleated RBC % Seg Neutrophils # Seg Neutrophils # Man Lymphocytes # (Manual) Monocytes # (Manual) Eosinophils # (Manual) PT INR APTT POC ABG pH ABG pH POC ABG pCO2 POC ABG pO2 ABG pO2 ABG HCO3 ABG O2 Saturation ABG Base Excess ABG Hemoglobin Oxyhemoglobin Sodium Potassium Chloride 95.1 L Carbon Dioxide 21 L BUN 119 H Creatinine 4.1 H Glucose 330 H POC Glucose 276 H 244 H Uric Acid Calcium 8.1 L Phosphorus Magnesium AST ALT 98 H Total Creatine Kinase CK-MB (CK-2) Troponin T NT-Pro-B Natriuret Pep Total Protein 5.8 L Albumin 2.8 L Triglycerides HDL Cholesterol Urine WBC (Auto) Urine Creatinine Urine Total Protein Vancomycin Trough 06/03/19 06/03/19 06/03/19 05:30 06:04 09:42 WBC 12.8 H RBC 3.01 L Hgb 8.2 L Hct 25.4 L MCV MCH 27 L MCHC RDW 17.5 H Lymph % (Auto) [place] % (Auto) Eos % (Auto) Lymph # [place] # Eos # Seg Neutrophils % Seg Neuts % (Manual) 78.0 H Lymphocytes % (Manual) 10.0 L Monocytes % (Manual) 12.0 H Eosinophils % (Manual) Nucleated RBC % Seg Neutrophils # Seg Neutrophils # Man 10.0 H Lymphocytes # (Manual) Monocytes # (Manual) 1.5 H Eosinophils # (Manual) PT INR APTT POC ABG pH ABG pH POC ABG pCO2 POC ABG pO2 ABG pO2 ABG HCO3 ABG O2 Saturation ABG Base Excess ABG Hemoglobin Oxyhemoglobin Sodium Potassium Chloride Carbon Dioxide BUN 106 H Creatinine Glucose POC Glucose 254 H Uric Acid Calcium Phosphorus Magnesium AST ALT Total Creatine Kinase CK-MB (CK-2) Troponin T NT-Pro-B Natriuret Pep Total Protein Albumin Triglycerides HDL Cholesterol Urine WBC (Auto) Urine Creatinine Urine Total Protein Vancomycin Trough 06/03/19 06/03/19 06/03/19 12:52 17:25 23:37 WBC RBC Hgb Hct MCV MCH MCHC RDW Lymph % (Auto) [place] % (Auto) Eos % (Auto) Lymph # [place] # Eos # Seg Neutrophils % Seg Neuts % (Manual) Lymphocytes % (Manual) Monocytes % (Manual) Eosinophils % (Manual) Nucleated RBC % Seg Neutrophils # Seg Neutrophils # Man Lymphocytes # (Manual) Monocytes # (Manual) Eosinophils # (Manual) PT INR APTT POC ABG pH ABG pH POC ABG pCO2 POC ABG pO2 ABG pO2 ABG HCO3 ABG O2 Saturation ABG Base Excess ABG Hemoglobin Oxyhemoglobin Sodium Potassium Chloride Carbon Dioxide BUN Creatinine Glucose POC Glucose 274 H 285 H 310 H Uric Acid Calcium Phosphorus Magnesium AST ALT Total Creatine Kinase CK-MB (CK-2) Troponin T NT-Pro-B Natriuret Pep Total Protein Albumin Triglycerides HDL Cholesterol Urine WBC (Auto) Urine Creatinine Urine Total Protein Vancomycin Trough 06/04/19 06/04/19 06/04/19 04:57 05:03 11:50 WBC RBC Hgb Hct MCV MCH MCHC RDW Lymph % (Auto) [place] % (Auto) Eos % (Auto) Lymph # [place] # Eos # Seg Neutrophils % Seg Neuts % (Manual) Lymphocytes % (Manual) Monocytes % (Manual) Eosinophils % (Manual) Nucleated RBC % Seg Neutrophils # Seg Neutrophils # Man Lymphocytes # (Manual) Monocytes # (Manual) Eosinophils # (Manual) PT INR APTT POC ABG pH 7.488 H ABG pH POC ABG pCO2 POC ABG pO2 ABG pO2 ABG HCO3 ABG O2 Saturation ABG Base Excess ABG Hemoglobin Oxyhemoglobin Sodium Potassium Chloride Carbon Dioxide BUN Creatinine Glucose POC Glucose 275 H 279 H Uric Acid Calcium Phosphorus Magnesium AST ALT Total Creatine Kinase CK-MB (CK-2) Troponin T NT-Pro-B Natriuret Pep Total Protein Albumin Triglycerides HDL Cholesterol Urine WBC (Auto) Urine Creatinine Urine Total Protein Vancomycin Trough 06/04/19 06/04/19 06/04/19 18:32 22:03 23:55 WBC RBC Hgb Hct MCV MCH MCHC RDW Lymph % (Auto) [place] % (Auto) Eos % (Auto) Lymph # [place] # Eos # Seg Neutrophils % Seg Neuts % (Manual) Lymphocytes % (Manual) Monocytes % (Manual) Eosinophils % (Manual) Nucleated RBC % Seg Neutrophils # Seg Neutrophils # Man Lymphocytes # (Manual) Monocytes # (Manual) Eosinophils # (Manual) PT INR APTT POC ABG pH ABG pH POC ABG pCO2 POC ABG pO2 ABG pO2 ABG HCO3 ABG O2 Saturation ABG Base Excess ABG Hemoglobin Oxyhemoglobin Sodium Potassium Chloride Carbon Dioxide BUN Creatinine Glucose POC Glucose 267 H 307 H 292 H Uric Acid Calcium Phosphorus Magnesium AST ALT Total Creatine Kinase CK-MB (CK-2) Troponin T NT-Pro-B Natriuret Pep Total Protein Albumin Triglycerides HDL Cholesterol Urine WBC (Auto) Urine Creatinine Urine Total Protein Vancomycin Trough 06/05/19 06/05/19 06/05/19 03:52 06:41 12:29 WBC RBC Hgb Hct MCV MCH MCHC RDW Lymph % (Auto) [place] % (Auto) Eos % (Auto) Lymph # [place] # Eos # Seg Neutrophils % Seg Neuts % (Manual) Lymphocytes % (Manual) Monocytes % (Manual) Eosinophils % (Manual) Nucleated RBC % Seg Neutrophils # Seg Neutrophils # Man Lymphocytes # (Manual) Monocytes # (Manual) Eosinophils # (Manual) PT INR APTT POC ABG pH 7.462 H ABG pH POC ABG pCO2 POC ABG pO2 ABG pO2 ABG HCO3 ABG O2 Saturation ABG Base Excess ABG Hemoglobin Oxyhemoglobin Sodium Potassium Chloride Carbon Dioxide BUN Creatinine Glucose POC Glucose 369 H 265 H Uric Acid Calcium Phosphorus Magnesium AST ALT Total Creatine Kinase CK-MB (CK-2) Troponin T NT-Pro-B Natriuret Pep Total Protein Albumin Triglycerides HDL Cholesterol Urine WBC (Auto) Urine Creatinine Urine Total Protein Vancomycin Trough 06/05/19 06/05/19 06/05/19 18:20 21:42 23:21 WBC RBC Hgb Hct MCV MCH MCHC RDW Lymph % (Auto) [place] % (Auto) Eos % (Auto) Lymph # [place] # Eos # Seg Neutrophils % Seg Neuts % (Manual) Lymphocytes % (Manual) Monocytes % (Manual) Eosinophils % (Manual) Nucleated RBC % Seg Neutrophils # Seg Neutrophils # Man Lymphocytes # (Manual) Monocytes # (Manual) Eosinophils # (Manual) PT INR APTT POC ABG pH ABG pH POC ABG pCO2 POC ABG pO2 ABG pO2 ABG HCO3 ABG O2 Saturation ABG Base Excess ABG Hemoglobin Oxyhemoglobin Sodium Potassium Chloride Carbon Dioxide BUN Creatinine Glucose POC Glucose 249 H 246 H 274 H Uric Acid Calcium Phosphorus Magnesium AST ALT Total Creatine Kinase CK-MB (CK-2) Troponin T NT-Pro-B Natriuret Pep Total Protein Albumin Triglycerides HDL Cholesterol Urine WBC (Auto) Urine Creatinine Urine Total Protein Vancomycin Trough 06/06/19 06/06/19 06/06/19 04:00 05:49 11:34 WBC 18.1 H RBC 3.53 L Hgb 9.5 L Hct 30.3 L MCV MCH 27 L MCHC 31 L RDW 19.5 H Lymph % (Auto) [place] % (Auto) Eos % (Auto) Lymph # [place] # Eos # Seg Neutrophils % Seg Neuts % (Manual) 87.0 H Lymphocytes % (Manual) 3.0 L Monocytes % (Manual) 8.0 H Eosinophils % (Manual) Nucleated RBC % Seg Neutrophils # Seg Neutrophils # Man 15.7 H Lymphocytes # (Manual) 0.5 L Monocytes # (Manual) 1.4 H Eosinophils # (Manual) PT INR APTT POC ABG pH ABG pH 7.472 H POC ABG pCO2 POC ABG pO2 ABG pO2 76.4 L ABG HCO3 28.1 H ABG O2 Saturation ABG Base Excess 4.3 H ABG Hemoglobin 12.5 L Oxyhemoglobin 93.8 L Sodium Potassium Chloride Carbon Dioxide BUN Creatinine Glucose POC Glucose 340 H Uric Acid Calcium Phosphorus Magnesium AST ALT Total Creatine Kinase CK-MB (CK-2) Troponin T NT-Pro-B Natriuret Pep Total Protein Albumin Triglycerides HDL Cholesterol Urine WBC (Auto) Urine Creatinine Urine Total Protein Vancomycin Trough 06/06/19 06/06/19 06/06/19 11:34 12:11 18:10 WBC RBC Hgb Hct MCV MCH MCHC RDW Lymph % (Auto) [place] % (Auto) Eos % (Auto) Lymph # [place] # Eos # Seg Neutrophils % Seg Neuts % (Manual) Lymphocytes % (Manual) Monocytes % (Manual) Eosinophils % (Manual) Nucleated RBC % Seg Neutrophils # Seg Neutrophils # Man Lymphocytes # (Manual) Monocytes # (Manual) Eosinophils # (Manual) PT INR APTT POC ABG pH ABG pH POC ABG pCO2 POC ABG pO2 ABG pO2 ABG HCO3 ABG O2 Saturation ABG Base Excess ABG Hemoglobin Oxyhemoglobin Sodium Potassium Chloride Carbon Dioxide BUN 70 H Creatinine Glucose 310 H POC Glucose 283 H 301 H Uric Acid Calcium 8.3 L Phosphorus 4.60 H Magnesium AST ALT 75 H Total Creatine Kinase CK-MB (CK-2) Troponin T NT-Pro-B Natriuret Pep Total Protein 5.6 L Albumin 2.9 L Triglycerides HDL Cholesterol Urine WBC (Auto) Urine Creatinine Urine Total Protein Vancomycin Trough 06/06/19 06/06/19 06/07/19 22:21 23:16 04:30 WBC RBC Hgb Hct MCV MCH MCHC RDW Lymph % (Auto) [place] % (Auto) Eos % (Auto) Lymph # [place] # Eos # Seg Neutrophils % Seg Neuts % (Manual) Lymphocytes % (Manual) Monocytes % (Manual) Eosinophils % (Manual) Nucleated RBC % Seg Neutrophils # Seg Neutrophils # Man Lymphocytes # (Manual) Monocytes # (Manual) Eosinophils # (Manual) PT INR APTT POC ABG pH ABG pH 7.480 H POC ABG pCO2 POC ABG pO2 ABG pO2 77.0 L ABG HCO3 27.2 H ABG O2 Saturation ABG Base Excess 3.5 H ABG Hemoglobin 7.1 L Oxyhemoglobin 94.2 L Sodium Potassium Chloride Carbon Dioxide BUN Creatinine Glucose POC Glucose 289 H 343 H Uric Acid Calcium Phosphorus Magnesium AST ALT Total Creatine Kinase CK-MB (CK-2) Troponin T NT-Pro-B Natriuret Pep Total Protein Albumin Triglycerides HDL Cholesterol Urine WBC (Auto) Urine Creatinine Urine Total Protein Vancomycin Trough 06/07/19 05:15 WBC RBC Hgb Hct MCV MCH MCHC RDW Lymph % (Auto) [place] % (Auto) Eos % (Auto) Lymph # [place] # Eos # Seg Neutrophils % Seg Neuts % (Manual) Lymphocytes % (Manual) Monocytes % (Manual) Eosinophils % (Manual) Nucleated RBC % Seg Neutrophils # Seg Neutrophils # Man Lymphocytes # (Manual) Monocytes # (Manual) Eosinophils # (Manual) PT INR APTT POC ABG pH ABG pH POC ABG pCO2 POC ABG pO2 ABG pO2 ABG HCO3 ABG O2 Saturation ABG Base Excess ABG Hemoglobin Oxyhemoglobin Sodium Potassium Chloride Carbon Dioxide BUN Creatinine Glucose POC Glucose 307 H Uric Acid Calcium Phosphorus Magnesium AST ALT Total Creatine Kinase CK-MB (CK-2) Troponin T NT-Pro-B Natriuret Pep Total Protein Albumin Triglycerides HDL Cholesterol Urine WBC (Auto) Urine Creatinine Urine Total Protein Vancomycin Trough
[2019-06-07] MEDS: MINOXIDIL 2.5 MG TAB PO SCH ×2 (09:45→22:49)
[2019-06-07] MEDS: FAMOTIDINE 20 MG TAB PO SCH (09:45)
[2019-06-07] MEDS: ENOXAPARIN 30 MG/0.3 ML INJ SUB-Q SCH (09:46)
--- NOTE | 2019-06-07 11:55 | Progress Note ---
Assessment and Plan # Acute kidney injury on HD: creatinine has worsened, potentially from vancomycin toxicity, now HD dependent. Initially with suspected tubular injury in setting of sepsis, respiratory failure, hypotension. - plan to continue HD /Th/Sa or prn; no indication for HD today - continue to assess for renal recovery with strict Is/Os - continue supportive measures, appreciate pulm and ID input - avoid nephrotoxins - appreciate vascular assistance with vas-cath placement - daily labs # HTN: BP above goal but reasonable, continue current management # Anemia: hemoglobin 9.5, pRBC transfusion prn. Continue ESAs with HD # Encephalopathy, seizure disorder, hypoxic respiratory failure, fevers: ID and pulm following, improving We'll continue to follow and make recommendation from renal standpoint for this critically ill patient; we appreciate the opportunity to assist in his care. Subjective Date of service: 06/07/19 Principal diagnosis: HF; acute hypoxemic resp failure, SIRS, CARLA Interval history: More alert this AM, with plans for extubation per ICU team. Objective - Exam Narrative Exam: General: No acute distress. Intubated but alert and following commands HEENT: ET tube in place Neck: Supple Chest: coarse mechanical breath sounds, FiO2 30% Heart: Regular rate and rhythm Abdomen: Soft nontender Extremity: no edema Psych: no agitation Derm: No petechial rash - Vital Signs Vital signs: Vital Signs - 12hr 06/07/19 06/07/19 06/07/19 00:00 00:01 00:30 Temperature 99.8 F H Pulse Rate 79 80 79 Pulse Rate [ 86 From Monitor] Respiratory 30 H 31 H 29 H Rate Blood Pressure 168/86 174/88 O2 Sat by Pulse 93 87 87 Oximetry 06/07/19 06/07/19 06/07/19 01:00 01:02 01:30 Temperature Pulse Rate 84 85 89 Pulse Rate [ From Monitor] Respiratory 19 31 H Rate Blood Pressure 171/85 171/85 170/90 O2 Sat by Pulse 90 92 85 Oximetry 06/07/19 06/07/19 06/07/19 02:00 02:30 03:00 Temperature Pulse Rate 87 87 87 Pulse Rate [ From Monitor] Respiratory 33 H 22 20 Rate Blood Pressure 168/86 158/93 164/83 O2 Sat by Pulse 86 87 86 Oximetry 06/07/19 06/07/19 06/07/19 03:31 04:00 04:22 Temperature 100.6 F H Pulse Rate 95 H 95 H 92 H Pulse Rate [ 88 From Monitor] Respiratory 31 H 22 Rate Blood Pressure 165/85 163/90 168/89 O2 Sat by Pulse 87 88 95 Oximetry 06/07/19 06/07/19 06/07/19 04:30 05:00 05:30 Temperature Pulse Rate 90 95 H 103 H Pulse Rate [ From Monitor] Respiratory 15 30 H 12 Rate Blood Pressure 170/88 171/88 159/87 O2 Sat by Pulse 85 85 85 Oximetry 06/07/19 06/07/19 06/07/19 06:00 06:30 07:00 Temperature Pulse Rate 97 H 85 89 Pulse Rate [ From Monitor] Respiratory 32 H 26 H 29 H Rate Blood Pressure 166/71 172/82 181/92 O2 Sat by Pulse 90 88 87 Oximetry 06/07/19 06/07/19 06/07/19 07:30 07:44 07:55 Temperature Pulse Rate 89 87 97 H Pulse Rate [ From Monitor] Respiratory 30 H 32 H Rate Blood Pressure 187/83 181/82 154/75 O2 Sat by Pulse 91 96 96 Oximetry 06/07/19 06/07/19 06/07/19 07:57 08:00 08:31 Temperature 98.8 F Pulse Rate 90 95 H 99 H Pulse Rate [ 98 H From Monitor] Respiratory 29 H 32 H Rate Blood Pressure 181/82 175/81 154/73 O2 Sat by Pulse 94 92 Oximetry 06/07/19 06/07/19 06/07/19 09:00 09:30 10:00 Temperature Pulse Rate 99 H 97 H 98 H Pulse Rate [ From Monitor] Respiratory 33 H 34 H 32 H Rate Blood Pressure 153/75 156/74 154/75 O2 Sat by Pulse 91 92 93 Oximetry 06/07/19 06/07/19 10:30 11:00 Temperature Pulse Rate 103 H 101 H Pulse Rate [ From Monitor] Respiratory 21 28 H Rate Blood Pressure 170/78 159/73 O2 Sat by Pulse 95 94 Oximetry - Lab 06/06/19 11:34 06/06/19 11:34 Most recent lab results ABG pH 7.480 pH Units (7.350-7.450) H 06/07/19 04:30 ABG pCO2 37.4 mm Hg 06/07/19 04:30 ABG pO2 77.0 mm Hg (80.0-90.0) L 06/07/19 04:30 ABG HCO3 27.2 mmol/L (20.0-26.0) H 06/07/19 04:30 ABG O2 Saturation 96.7 % (95.0-99.0) 06/07/19 04:30 Calcium 8.3 mg/dL (8.4-10.2) L 06/06/19 11:34 Phosphorus 4.60 mg/dL (2.5-4.5) H 06/06/19 11:34 Magnesium 1.90 mg/dL (1.7-2.3) 05/31/19 13:04 Urine Creatinine 292.8 mg/dL (0.1-20.0) H 05/07/19 22:40 Urine Sodium 11 mmol/L 05/07/19 22:40 Urine Total Protein 269 mg/dL (5-11.8) H 05/07/19 22:40 Medications & Allergies - Medications Allergies/Adverse Reactions: Allergies No Known Allergies Allergy (Verified 05/01/19 20:27) Home Medications: Home Medications Medication Instructions Recorded Confirmed Last Taken Type No Known Home Medications [No 05/03/19 05/03/19 Unknown History Reported Home Medications] Active Medications: Generic Name Dose Route Start Last Admin Trade Name Freq PRN Reason Stop Dose Admin Albumin Human 25 gm 05/19/19 10:47 Alburx 25% (Albumin) IV ARIANE PRN Hypotension Alteplase, Recombinant 2 mg 05/25/19 09:30 05/28/19 21:15 Cathflo IV 2 mg ARIANE PRN Administration LINE FLUSH Lipase/Protease/Amylase 1 each 05/14/19 15:01 Pancreaze 10,500 Unit FEEDTUBE PRN PRN For Clogged Feeding Tube Clonidine HCl 0.3 mg 06/06/19 20:00 06/06/19 20:38 Catapres-Tts Patch TD 0.3 mg Lao VICKEY Administration Dextrose 50 gm 05/01/19 20:24 D50w (25gm) Vial IV Q30MIN PRN Hypoglycemia Protocol Enoxaparin Sodium 30 mg 05/16/19 10:00 06/07/19 09:46 Enoxaparin SUB-Q 30 mg QDAY VICKEY Administration Epoetin Hugo 10,000 unit 05/19/19 10:47 06/03/19 11:49 Procrit IV 10,000 unit ARIANE PRN Administration hemodialysis Famotidine 20 mg 05/16/19 10:00 06/07/19 09:45 Pepcid PO 20 mg DAILY VICKEY Administration Fentanyl 50 mcg 06/03/19 10:03 06/03/19 18:46 Sublimaze IV 50 mcg Q2HR PRN Administration Pain, Moderate (4-6) Hydralazine HCl 20 mg 05/13/19 08:09 06/07/19 07:57 Apresoline IV 20 mg Q4HR PRN Administration SBP >/=160 Propofol 1,000 mg in 100 mls @ 7.011 mls/hr 05/03/19 04:00 06/06/19 09:56 Diprivan 10 Mg/Ml IV 0 mcg/kg/min TITR VICKEY 0 mls/hr Titration Protocol 5 MCG/KG/MIN Sodium Chloride 100 mls @ 999 mls/hr 05/19/19 10:47 05/20/19 08:14 Nacl 0.9% IV 999 mls/hr ARIANE PRN Administration Hypotension Insulin Glargine 20 units 06/07/19 22:00 Lantus SUB-Q QHS VICKEY Insulin Human Lispro 0 unit 06/01/19 14:00 06/07/19 07:57 Humalog SUB-Q 8 unit Q6HR VICKEY Administration Protocol Levetiracetam 750 mg 05/13/19 10:00 06/07/19 09:45 Keppra PO 750 mg BID VICKEY Administration Lorazepam 2 mg 05/06/19 06:22 05/10/19 16:17 Ativan IV 2 mg Q4H PRN Administration Seizures/AGITATION Methylprednisolone Sodium Succinate 80 mg 06/06/19 14:00 06/07/19 05:35 Solu-Medrol IV 80 mg Q8HR VICKEY Administration Minoxidil 2.5 mg 06/06/19 22:00 06/07/19 09:45 Loniten PO 2.5 mg BID VICKEY Administration Simple Syrup 15 ml 05/14/19 15:01 Simple Syrup FEEDTUBE PRN PRN Hypoglycemia Simple Syrup 30 ml 05/14/19 15:01 Simple Syrup FEEDTUBE PRN PRN Hypoglycemia Sodium Bicarbonate 325 mg 05/14/19 15:01 Sodium Bicarbonate FEEDTUBE PRN PRN For Clogged Feeding Tube
--- NOTE | 2019-06-07 15:25 | Progress Note ---
Assessment and Plan - Patient Problems (1) Acute on chronic respiratory failure Current Visit: Yes Status: Acute Qualifiers: Respiratory failure complication: hypoxia Qualified Code(s): J96.21 - Acute and chronic respiratory failure with hypoxia Plan to address problem: Pulmonary team consulted, patient successfully weaned from vent today, submental oxygen, nebulizer therapy, noninvasive positive pressure ventilation, continue ICU monitoring due to high risk for respiratory decompensation. The high probability of a clinically significant, sudden or life threatening deterioration of the [pulmonary, renal, neuro, endocrine] system(s) required my full and direct attention, intervention and personal management. The aggregate critical care time was [65] minutes. This time is in addition to time spent performing reported procedures but includes the following: [x] Data Review and interpretation [x] Patient assessment and monitoring of vital signs [x] Documentation [x] Medication orders and management (2) Obesity hypoventilation syndrome Current Visit: Yes Status: Acute Plan to address problem: Supplemental oxygen, nebulizer therapy, pulse oximetry, wean vent as tolerated. (3) Morbid obesity Current Visit: Yes Status: Chronic Plan to address problem: Supportive care, poor prognosis. Outpatient bariatric surgery follow-up at discharge. (4) Cardiac arrest Current Visit: Yes Status: Acute Plan to address problem: Supportive care. Cardiology consulted, continue supportive care. (5) Anoxic brain injury Current Visit: Yes Status: Suspected Plan to address problem: Neuro check, supportive care. Neurology consulted. Patient follows commands. Serial neuro exams. (6) Acute kidney injury Current Visit: Yes Status: Acute Plan to address problem: Nephrology consulted, monitor urine output every shift, daily weight, serial BMP to monitor serum creatinine. Avoid nephrotoxic agents. (7) DVT prophylaxis Current Visit: Yes Status: Acute Plan to address problem: SCD to bilateral lower extremity, prophylactic Lovenox. History Interval history: 34-year-old male with acute hypoxemic and hypercapnic respiratory failure, status post cardiac arrest, and suspected anoxic encephalopathy, obesity hypoventilation, acute kidney injury, sepsis. Patient is extubated today and currently on noninvasive positive pressure ventilatory support and currently undergoing ICU care. Patient lab and imaging studies reviewed. Patient is responsive and follows commands. No reported nursing events. Due to patient significant comorbiditiesthe patient is at high risk for decompensation. Continue current ICU management for the next 24 hours. Hospitalist Physical - Constitutional Vitals: Temp Pulse Resp BP Pulse Ox 99.5 F 101 H 33 H 132/65 97 06/07/19 12:00 06/07/19 14:00 06/07/19 14:00 06/07/19 14:00 06/07/19 14:00 General appearance: Present: mild distress, obese - EENT Eyes: Present: PERRL - Neck Neck: Present: supple - Respiratory Respiratory effort: labored Respiratory: bilateral: diminished, rhonchi - Cardiovascular Rhythm: regular Heart Sounds: Present: S1 & S2 - Extremities Extremities: no ischemia Extremity abnormal: edema Peripheral Pulses: within normal limits - Abdominal General gastrointestinal: soft, non-tender, non-distended - Integumentary Integumentary: Present: clear, dry - Psychiatric Psychiatric: no appropriate mood/affect, other (Follows commands) - Neurologic Neurologic: no gait normal Results - Labs CBC & Chem 7: 06/06/19 11:34 06/06/19 11:34 Labs: Laboratory Last Values WBC 18.1 K/mm3 (4.5-11.0) H 06/06/19 11:34 RBC 3.53 M/mm3 (3.65-5.03) L 06/06/19 11:34 Hgb 9.5 gm/dl (11.8-15.2) L 06/06/19 11:34 Hct 30.3 % (35.5-45.6) L 06/06/19 11:34 MCV 86 fl (84-94) 06/06/19 11:34 MCH 27 pg (28-32) L 06/06/19 11:34 MCHC 31 % (32-34) L 06/06/19 11:34 RDW 19.5 % (13.2-15.2) H 06/06/19 11:34 Plt Count 302 K/mm3 (140-440) 06/06/19 11:34 Lymph % (Auto) 7.9 % (13.4-35.0) L 05/18/19 01:50 Baker % (Auto) 16.2 % (0.0-7.3) H 05/22/19 06:25 Eos % (Auto) 10.8 % (0.0-4.3) H 05/22/19 06:25 Baso % (Auto) 0.2 % (0.0-1.8) 05/18/19 01:50 Lymph # 0.7 K/mm3 (1.2-5.4) L 05/18/19 01:50 Baker # 1.3 K/mm3 (0.0-0.8) H 05/22/19 06:25 Eos # 0.9 K/mm3 (0.0-0.4) H 05/22/19 06:25 Baso # 0.0 K/mm3 (0.0-0.1) 05/22/19 06:25 Add Manual Diff Complete 06/06/19 11:34 Total Counted 100 06/06/19 11:34 Seg Neutrophils % 65.5 % (40.0-70.0) 05/22/19 06:25 Seg Neuts % (Manual) 87.0 % (40.0-70.0) H 06/06/19 11:34 Band Neutrophils % 1.0 % 06/06/19 11:34 Lymphocytes % (Manual) 3.0 % (13.4-35.0) L 06/06/19 11:34 Reactive Lymphs % (Man) 0 % 06/06/19 11:34 Monocytes % (Manual) 8.0 % (0.0-7.3) H 06/06/19 11:34 Eosinophils % (Manual) 0 % (0.0-4.3) 06/06/19 11:34 Basophils % (Manual) 0 % (0.0-1.8) 06/06/19 11:34 Metamyelocytes % 1.0 % 06/06/19 11:34 Myelocytes % 0 % 06/06/19 11:34 Promyelocytes % 0 % 06/06/19 11:34 Blast Cells % 0 % 06/06/19 11:34 Nucleated RBC % Not Reportable 06/06/19 11:34 Seg Neutrophils # 5.3 K/mm3 (1.8-7.7) 05/22/19 06:25 Seg Neutrophils # Man 15.7 K/mm3 (1.8-7.7) H 06/06/19 11:34 Band Neutrophils # 0.2 K/mm3 06/06/19 11:34 Lymphocytes # (Manual) 0.5 K/mm3 (1.2-5.4) L 06/06/19 11:34 Abs React Lymphs (Man) 0.0 K/mm3 06/06/19 11:34 Monocytes # (Manual) 1.4 K/mm3 (0.0-0.8) H 06/06/19 11:34 Eosinophils # (Manual) 0.0 K/mm3 (0.0-0.4) 06/06/19 11:34 Basophils # (Manual) 0.0 K/mm3 (0.0-0.1) 06/06/19 11:34 Metamyelocytes # 0.2 K/mm3 06/06/19 11:34 Myelocytes # 0.0 K/mm3 06/06/19 11:34 Promyelocytes # 0.0 K/mm3 06/06/19 11:34 Blast Cells # 0.0 K/mm3 06/06/19 11:34 WBC Morphology Not Reportable 06/06/19 11:34 Hypersegmented Neuts Not Reportable 06/06/19 11:34 Hyposegmented Neuts Not Reportable 06/06/19 11:34 Hypogranular Neuts Not Reportable 06/06/19 11:34 Smudge Cells Not Reportable 06/06/19 11:34 Toxic Granulation Not Reportable 06/06/19 11:34 Toxic Vacuolation Not Reportable 06/06/19 11:34 Dohle Bodies Not Reportable 06/06/19 11:34 Pelger-Huet Anomaly Not Reportable 06/06/19 11:34 Renea Rods Not Reportable 06/06/19 11:34 Platelet Estimate Consistent w auto 06/06/19 11:34 Clumped Platelets Not Reportable 06/06/19 11:34 Plt Clumps, EDTA Not Reportable 06/06/19 11:34 Large Platelets Not Reportable 06/06/19 11:34 Giant Platelets Not Reportable 06/06/19 11:34 Platelet Satelliting Not Reportable 06/06/19 11:34 Plt Morphology Comment Not Reportable 06/06/19 11:34 RBC Morphology Not Reportable 06/06/19 11:34 Dimorphic RBCs Not Reportable 06/06/19 11:34 Polychromasia Few 06/06/19 11:34 Hypochromasia Not Reportable 06/06/19 11:34 Poikilocytosis Not Reportable 06/06/19 11:34 Anisocytosis Not Reportable 06/06/19 11:34 Microcytosis Not Reportable 06/06/19 11:34 Macrocytosis Not Reportable 06/06/19 11:34 Spherocytes Not Reportable 06/06/19 11:34 Pappenheimer Bodies Not Reportable 06/06/19 11:34 Sickle Cells Not Reportable 06/06/19 11:34 Target Cells Not Reportable 06/06/19 11:34 Tear Drop Cells Few 06/06/19 11:34 Ovalocytes Not Reportable 06/06/19 11:34 Stomatocytes Few 06/03/19 05:30 Helmet Cells Not Reportable 06/06/19 11:34 [place] Bodies Not Reportable 06/06/19 11:34 [place] Rings Not Reportable 06/06/19 11:34 [place] Cells Not Reportable 06/06/19 11:34 Bite Cells Not Reportable 06/06/19 11:34 Crenated Cell Not Reportable 06/06/19 11:34 Elliptocytes Not Reportable 06/06/19 11:34 Acanthocytes (Spur) Not Reportable 06/06/19 11:34 Rouleaux Not Reportable 06/06/19 11:34 Hemoglobin C Crystals Not Reportable 06/06/19 11:34 Schistocytes Not Reportable 06/06/19 11:34 Malaria parasites Not Reportable 06/06/19 11:34 Syed Bodies Not Reportable 06/06/19 11:34 Hem Pathologist Commnt No 06/06/19 11:34 PT 15.4 Sec. (12.2-14.9) H 05/01/19 Unknown INR 1.23 (0.87-1.13) H 05/01/19 Unknown APTT 22.7 Sec. (24.2-36.6) L 05/01/19 Unknown POC ABG pH 7.462 (7.35-7.45) H 06/05/19 03:52 ABG pH 7.480 pH Units (7.350-7.450) H 06/07/19 04:30 POC ABG pCO2 39.8 (35-45) 06/05/19 03:52 ABG pCO2 37.4 mm Hg 06/07/19 04:30 POC ABG pO2 86 (80-105) 06/05/19 03:52 ABG pO2 77.0 mm Hg (80.0-90.0) L 06/07/19 04:30 POC ABG HCO3 28.4 (22-26 mml/L) 06/05/19 03:52 ABG HCO3 27.2 mmol/L (20.0-26.0) H 06/07/19 04:30 POC ABG Total CO2 30 (23-27mmol/L) 06/05/19 03:52 POC ABG O2 Sat 97 06/05/19 03:52 ABG O2 Saturation 96.7 % (95.0-99.0) 06/07/19 04:30 ABG O2 Content 9.5 (0.0-44) 06/07/19 04:30 POC ABG Base Excess 5 ((-2) - (+3)mmol/L) 06/05/19 03:52 ABG Base Excess 3.5 mmol/L (-2.0-3.0) H 06/07/19 04:30 ABG Hemoglobin 7.1 gm/dl (14.0-18.0) L 06/07/19 04:30 ABG Carboxyhemoglobin 2.1 % (0.0-5.0) 06/07/19 04:30 ABG Methemoglobin 0.4 % (0.0-1.5) 06/07/19 04:30 Oxyhemoglobin 94.2 % (95.0-99.0) L 06/07/19 04:30 FiO2 30 % 06/07/19 04:30 Sodium 138 mmol/L (137-145) 06/06/19 11:34 Potassium 4.5 mmol/L (3.6-5.0) 06/06/19 11:34 Chloride 98.2 mmol/L (98-107) 06/06/19 11:34 Carbon Dioxide 23 mmol/L (22-30) 06/06/19 11:34 Anion Gap 21 mmol/L 06/06/19 11:34 BUN 70 mg/dL (9-20) H 06/06/19 11:34 Creatinine 1.5 mg/dL (0.8-1.5) D 06/06/19 11:34 Estimated GFR > 60 ml/min 06/06/19 11:34 BUN/Creatinine Ratio 47 % 06/06/19 11:34 Glucose 310 mg/dL (75-100) H 06/06/19 11:34 POC Glucose 226 (70-105) H 06/07/19 12:52 Osmolality 327 Mosm/kg 05/07/19 13:45 Uric Acid 18.0 mg/dL (3.5-7.6) H 05/07/19 13:45 Calcium 8.3 mg/dL (8.4-10.2) L 06/06/19 11:34 Phosphorus 4.60 mg/dL (2.5-4.5) H 06/06/19 11:34 Magnesium 1.90 mg/dL (1.7-2.3) 05/31/19 13:04 Total Bilirubin 0.50 mg/dL (0.1-1.2) 06/06/19 11:34 AST 28 units/L (5-40) 06/06/19 11:34 ALT 75 units/L (7-56) H 06/06/19 11:34 Alkaline Phosphatase 93 units/L (35-129) 06/06/19 11:34 Total Creatine Kinase 131 units/L (55-170) 05/02/19 04:41 CK-MB (CK-2) 5.2 ng/mL (0.0-4.0) H 05/02/19 04:41 CK-MB (CK-2) Rel Index 3.9 (0-4) 05/02/19 04:41 Troponin T 0.067 ng/mL (0.00-0.029) H D 05/02/19 04:41 NT-Pro-B Natriuret Pep 6831 pg/mL (0-450) H 05/01/19 Unknown Total Protein 5.6 g/dL (6.3-8.2) L 06/06/19 11:34 Albumin 2.9 g/dL (3.9-5) L 06/06/19 11:34 Albumin/Globulin Ratio 1.1 % 06/06/19 11:34 Triglycerides 173 mg/dL (2-149) H 05/17/19 Unknown Cholesterol 173 mg/dL (50-199) 05/02/19 00:06 LDL Cholesterol Direct 126 mg/dL (50-130) 05/02/19 00:06 HDL Cholesterol 18 mg/dL (40-59) L 05/02/19 00:06 Cholesterol/HDL Ratio 9.61 % 05/02/19 00:06 Procalcitonin 0.54 ng/mL (<0.15) 05/03/19 11:52 Urine Color Yellow (Yellow) 05/20/19 12:00 Urine Turbidity Cloudy (Clear) 05/20/19 12:00 Urine pH 5.0 (5.0-7.0) 05/20/19 12:00 Ur Specific [place] 1.015 (1.003-1.030) 05/20/19 12:00 Urine Protein 30 mg/dl mg/dL (Negative) 05/20/19 12:00 Urine Glucose (UA) Neg mg/dL (Negative) 05/20/19 12:00 Urine Ketones Neg mg/dL (Negative) 05/20/19 12:00 Urine Blood Lg (Negative) 05/20/19 12:00 Urine Nitrite Neg (Negative) 05/20/19 12:00 Urine Bilirubin Neg (Negative) 05/20/19 12:00 Urine Urobilinogen < 2.0 mg/dL (<2.0) 05/20/19 12:00 Ur Leukocyte Esterase Mod (Negative) 05/20/19 12:00 Urine WBC (Auto) 26.0 /HPF (0.0-6.0) H 05/20/19 12:00 Urine RBC (Auto) 83.0 /HPF (0.0-6.0) 05/20/19 12:00 Urine Bacteria (Auto) 1+ /HPF (Negative) 05/20/19 12:00 Uric Acid Crystals 3+ 05/03/19 10:55 Urine Mucus Few /HPF 05/20/19 12:00 Urine Yeast (Budding) 3+ /HPF 05/20/19 12:00 Urine Creatinine 292.8 mg/dL (0.1-20.0) H 05/07/19 22:40 Urine Sodium 11 mmol/L 05/07/19 22:40 Urine Total Protein 269 mg/dL (5-11.8) H 05/07/19 22:40 Vancomycin Trough 20.5 ug/mL (5.0-20.0) H 05/15/19 09:00 Random Vancomycin 11.5 ug/mL (0-40.0) 05/27/19 06:00 AMNA Screen Negative (Negative) 05/07/19 13:45 Hepatitis A IgM Ab Non-reactive (NonReactive) 05/07/19 13:45 Hep Bs Antigen Non-reactive (Negative) 05/07/19 13:45 Hep B Core IgM Ab Non-reactive (NonReactive) 05/07/19 13:45 Hepatitis C Antibody Non-reactive (NonReactive) 05/07/19 13:45 Active Medications - Current Medications Current Medications: Generic Name Dose Route Start Last Admin Trade Name Freq PRN Reason Stop Dose Admin Albumin Human 25 gm 05/19/19 10:47 Alburx 25% (Albumin) IV ARIANE PRN Hypotension Alteplase, Recombinant 2 mg 05/25/19 09:30 05/28/19 21:15 Cathflo IV 2 mg ARIANE PRN Administration LINE FLUSH Lipase/Protease/Amylase 1 each 05/14/19 15:01 Pancreaze 10,500 Unit FEEDTUBE PRN PRN For Clogged Feeding Tube Clonidine HCl 0.3 mg 06/06/19 20:00 06/06/19 20:38 Catapres-Tts Patch TD 0.3 mg Lao VICKEY Administration Dextrose 50 gm 05/01/19 20:24 D50w (25gm) Vial IV Q30MIN PRN Hypoglycemia Protocol Enoxaparin Sodium 30 mg 05/16/19 10:00 06/07/19 09:46 Enoxaparin SUB-Q 30 mg QDAY VICKEY Administration Epoetin Hugo 10,000 unit 05/19/19 10:47 06/03/19 11:49 Procrit IV 10,000 unit ARIANE PRN Administration hemodialysis Famotidine 20 mg 05/16/19 10:00 06/07/19 09:45 Pepcid PO 20 mg DAILY VICKEY Administration Fentanyl 50 mcg 06/03/19 10:03 06/03/19 18:46 Sublimaze IV 50 mcg Q2HR PRN Administration Pain, Moderate (4-6) Hydralazine HCl 20 mg 05/13/19 08:09 06/07/19 07:57 Apresoline IV 20 mg Q4HR PRN Administration SBP >/=160 Propofol 1,000 mg in 100 mls @ 7.011 mls/hr 05/03/19 04:00 06/06/19 09:56 Diprivan 10 Mg/Ml IV 0 mcg/kg/min TITR VICKEY 0 mls/hr Titration Protocol 5 MCG/KG/MIN Sodium Chloride 100 mls @ 999 mls/hr 05/19/19 10:47 05/20/19 08:14 Nacl 0.9% IV 999 mls/hr ARIANE PRN Administration Hypotension Insulin Glargine 20 units 06/07/19 22:00 Lantus SUB-Q QHS VICKEY Insulin Human Lispro 0 unit 06/01/19 14:00 06/07/19 13:08 Humalog SUB-Q Not Given Q6HR [facility] Protocol Levetiracetam 750 mg 05/13/19 10:00 06/07/19 09:45 Keppra PO 750 mg BID VICKEY Administration Lorazepam 2 mg 05/06/19 06:22 05/10/19 16:17 Ativan IV 2 mg Q4H PRN Administration Seizures/AGITATION Methylprednisolone Sodium Succinate 80 mg 06/06/19 14:00 06/07/19 14:34 Solu-Medrol IV 80 mg Q8HR VICKEY Administration Minoxidil 2.5 mg 06/06/19 22:00 06/07/19 09:45 Loniten PO 2.5 mg BID VICKEY Administration Simple Syrup 15 ml 05/14/19 15:01 Simple Syrup FEEDTUBE PRN PRN Hypoglycemia Simple Syrup 30 ml 05/14/19 15:01 Simple Syrup FEEDTUBE PRN PRN Hypoglycemia Sodium Bicarbonate 325 mg 05/14/19 15:01 Sodium Bicarbonate FEEDTUBE PRN PRN For Clogged Feeding Tube Nutrition/Malnutrition Assess - Dietary Evaluation Nutrition/Malnutrition Findings: Nutrition Notes Start: 05/04/19 12:54 Freq: Status: Active Protocol: Document 06/03/19 11:05 KS (Rec: 06/03/19 11:12 KS [id number]) Co-Sign 06/03/19 11:05 LP Nutrition Notes Initial or Follow up Reassessment Current Diagnosis Acute Kidney Injury,Sepsis, Respiratory Failure Other Pertinent Diagnosis on HD Current Diet Nepro 1.8 at 50 ml/hr Labs/Tests BUN 119 CR 4.1 Glu 330 POC Glu 254 Ca 8.1 Pertinent Medications Humalog Solumedrol Propofol at 7.011 ml/hr( 185kcal) Height 6 ft 4 in Weight 257.2 kg [place] Body Weight (kg) 91.81 BMI 69.0 Weight change and time frame Wt change noted. Likely due to fluid Weight Status Morbidly Obese Subjective/Other Information Pt tolerating Nepro at 50ml/hr . Pt on HD. Per MD, pt to possibly be extubated this week. Percent of energy/protein needs met: 100%/43% Burn Absent Trauma Absent Current % PO Negligible Minimum of two criteria No physical signs of malnutrition #1 Nutrition Diagnosis Inadequate oral intake Diagnosis Progress(for reassessment Continues documentation) Is patient on ventilator? Yes Is Patient Ambulatory and/or Out of Bed No REE-([facility]-confined to bed) 4342.284 Kcal/Kg value to use for calculation 8 Approximate Energy Requirements Using 2057 kcal/Kg Calculation Used for Recommendations Kcal/kg Additional Notes PRO needs: 225 g (up to 2.5 g/ kg IBW) Fluid needs: 1 ml/kcal Nutrition Intervention Change Diet Order: Continue TF Nutrition Support: Nepro 1.8 at 50 ml/hr Flush with 150ml q4h Kcal 2,160 Protein (gm) 97 Fluid (mL) 872 Goal #1 TF tolerance Goal #2 Meet at least 75% kcal/PRO needs via TF Anticipated Discharge Needs: Unable to determine at this time Follow-Up By: 06/10/19 Additional Comments Follow for TF tolerance
[2019-06-07] MEDS: fentaNYL 100 MCG/2 ML INJ IV PRN (17:13)
[2019-06-07] MEDS: INSULIN GLARGINE 100 UNITS/ML SUB-Q SCH (22:48)
[2019-06-07] MEDS ORDERED: SODIUM CHLORIDE 0.9% 100 ML IV PRN (23:03)
[2019-06-08 04:58] LABS: Hematocrit 32.1 % (35.5-45.6); Mean Corpuscular HGB Conc 31 % (32-34); Mean Corpuscular Volume 88 fl (84-94); Platelet Count 262 K/mm3 (140-440); Red Blood Count 3.66 M/mm3 (3.65-5.03); Red Cell Distribution Width 19.4 % (13.2-15.2)
[2019-06-08 05:20] LABS: Alanine Aminotransferase 66 units/L (7-56); Albumin 2.9 g/dL (3.9-5); BUN/Creatinine Ratio 64; Blood Urea Nitrogen 77 mg/dL (9-20); Calcium 8.6 mg/dL (8.4-10.2); Hemolysis Index 3
[2019-06-08 06:23] LABS: Basophils % (Manual) 0 % (0.0-1.8); Eosinophils % (Manual) 0 % (0.0-4.3); Total Cells Counted 100
[2019-06-08 06:24] LABS: Ovalocytes Rare; Platelet Estimate Consistent w Auto; Schistocytes Few; Stomatocytes Few
[2019-06-08] MEDS: methylPREDNISolone Sod Succinate 125 MG/2 ML INJ IV SCH (06:49)
[2019-06-08] MEDS: INSULIN LISPRO 100 UNIT/ML SUB-Q SCH ×4 (06:51→22:19)
--- NOTE | 2019-06-08 09:05 | Progress Note ---
Assessment and Plan 34 y/o male with acute hypoxic, hypercapnic respiratory failure currently ventilated and sedated, now with persistent fevers and seizure and on HD 06/08/2019: Speech evaluation today. Wean FiO2 as tolerated. HD per renal. Overall stable. Can likely downgrade to IMCU. Not sure that he is quite ready for regular floor. Needs PT/OT evaluation. 1. ID: Patient unable to fit in scanner so CT of head sinus, chest will not happen. ID has placed back on renally adjusted Vanc. he has grown out jarad from urine and a tracheal aspirate 2. Pulm: FIO2 now @ 40%. ABG was good. Will wean after HD today. Can start to come down on PEEP. Will drop to 12 3. Renal: HD per renal, will need permacath per vascular notes if patient can be afebrile. 4. 37 days of intubation. 5. Trying to avoid trach as much as possible. He is on his fourth week of intubation. However still requiring high levels of PEEP. At this point, once weaned to normal PEEP levels, hoping that we can extubate. CCT 31 minutes. Subjective Date of service: 06/08/19 Principal diagnosis: HF; acute hypoxemic resp failure, SIRS, CARLA Interval history: Successful extubation on yesterday. Tolerated Bipap last night. Currently on HD. no family present. Objective Vital Signs - 12hr 06/07/19 06/07/19 06/07/19 21:30 22:00 22:30 Temperature Pulse Rate 101 H 99 H 101 H Pulse Rate [ From Monitor] Respiratory 21 25 H 30 H Rate Blood Pressure 138/78 148/76 150/78 O2 Sat by Pulse 95 90 95 Oximetry 06/07/19 06/07/19 06/07/19 22:33 23:00 23:20 Temperature 99.5 F Pulse Rate 101 H 103 H Pulse Rate [ From Monitor] Respiratory 16 28 H Rate Blood Pressure 150/78 154/80 O2 Sat by Pulse 94 90 Oximetry 06/07/19 06/08/19 06/08/19 23:30 00:00 00:30 Temperature Pulse Rate 106 H 100 H 100 H Pulse Rate [ 101 H From Monitor] Respiratory 29 H 25 H 30 H Rate Blood Pressure 161/85 155/86 142/94 O2 Sat by Pulse 92 97 95 Oximetry 06/08/19 06/08/19 06/08/19 01:00 01:30 01:34 Temperature Pulse Rate 98 H 98 H Pulse Rate [ From Monitor] Respiratory 19 29 H Rate Blood Pressure 138/93 151/94 O2 Sat by Pulse 92 93 98 Oximetry 06/08/19 06/08/19 06/08/19 02:01 02:30 03:00 Temperature Pulse Rate 105 H 97 H 99 H Pulse Rate [ From Monitor] Respiratory 25 H 24 25 H Rate Blood Pressure 157/82 146/83 151/85 O2 Sat by Pulse 97 95 87 Oximetry 06/08/19 06/08/19 06/08/19 03:30 03:31 04:00 Temperature 98.8 F Pulse Rate 103 H 102 H Pulse Rate [ 100 H From Monitor] Respiratory 27 H 29 H Rate Blood Pressure 152/86 153/85 O2 Sat by Pulse 93 93 Oximetry 06/08/19 06/08/19 06/08/19 04:30 05:00 05:30 Temperature Pulse Rate 100 H 98 H 93 H Pulse Rate [ From Monitor] Respiratory 27 H 28 H 26 H Rate Blood Pressure 158/89 151/89 159/80 O2 Sat by Pulse 93 97 99 Oximetry 06/08/19 06/08/19 06/08/19 06:00 06:30 07:00 Temperature Pulse Rate 95 H 91 H 87 Pulse Rate [ From Monitor] Respiratory 26 H 27 H 22 Rate Blood Pressure 165/70 175/77 166/91 O2 Sat by Pulse 96 97 96 Oximetry 06/08/19 06/08/19 06/08/19 07:30 08:00 08:16 Temperature 97.8 F Pulse Rate 89 91 H Pulse Rate [ From Monitor] Respiratory 16 17 Rate Blood Pressure 171/100 177/107 O2 Sat by Pulse 94 93 98 Oximetry 06/08/19 08:30 Temperature Pulse Rate 89 Pulse Rate [ From Monitor] Respiratory 25 H Rate Blood Pressure 174/105 O2 Sat by Pulse 96 Oximetry Constitutional: no acute distress, other (morbidly obese male, on vent, orally intubated) Eyes: non-icteric ENT: oropharynx moist Neck: other (extremely large in circumference) Effort: normal Ascultation: Bilateral: diminished breath sounds (secondary to body habitus) Cardiovascular: regular rate and rhythm (no mrg) Gastrointestinal: normoactive bowel sounds, non-tender, other (obese) Integumentary: other (L hand is wrapped) Extremities: no cyanosis, pink and warm, other (1+ generalized edema) Neurologic: unable to assess Psychiatric: other (unable to assess) CBC and BMP: 06/08/19 04:20 06/08/19 04:20 ABG, PT/INR, D-dimer: ABG POC ABG pH 7.462 (7.35-7.45) H 06/05/19 03:52 ABG pH 7.480 pH Units (7.350-7.450) H 06/07/19 04:30 POC ABG pCO2 39.8 (35-45) 06/05/19 03:52 ABG pCO2 37.4 mm Hg 06/07/19 04:30 POC ABG pO2 86 (80-105) 06/05/19 03:52 ABG pO2 77.0 mm Hg (80.0-90.0) L 06/07/19 04:30 POC ABG HCO3 28.4 (22-26 mml/L) 06/05/19 03:52 POC ABG Total CO2 30 (23-27mmol/L) 06/05/19 03:52 POC ABG O2 Sat 97 06/05/19 03:52 ABG O2 Saturation 96.7 % (95.0-99.0) 06/07/19 04:30 PT/INR, D-dimer PT 15.4 Sec. (12.2-14.9) H 05/01/19 Unknown INR 1.23 (0.87-1.13) H 05/01/19 Unknown Abnormal lab findings: Abnormal Labs 05/01/19 05/01/19 05/01/19 17:50 19:26 22:36 WBC RBC Hgb Hct MCV MCH MCHC RDW Lymph % (Auto) [place] % (Auto) Eos % (Auto) Lymph # [place] # Eos # Seg Neutrophils % Seg Neuts % (Manual) Lymphocytes % (Manual) Monocytes % (Manual) Eosinophils % (Manual) Nucleated RBC % Seg Neutrophils # Seg Neutrophils # Man Lymphocytes # (Manual) Monocytes # (Manual) Eosinophils # (Manual) PT INR APTT POC ABG pH 7.272 L 7.331 L ABG pH POC ABG pCO2 52.8 H POC ABG pO2 ABG pO2 ABG HCO3 ABG O2 Saturation ABG Base Excess ABG Hemoglobin Oxyhemoglobin Sodium 136 L Potassium 6.5 H* Chloride 97.2 L Carbon Dioxide BUN 60 H Creatinine Glucose 113 H POC Glucose Uric Acid Calcium Phosphorus Magnesium 2.40 H AST 139 H ALT 154 H Total Creatine Kinase CK-MB (CK-2) Troponin T NT-Pro-B Natriuret Pep Total Protein Albumin 3.8 L Triglycerides HDL Cholesterol Urine WBC (Auto) Urine Creatinine Urine Total Protein Vancomycin Trough 05/01/19 05/01/19 05/01/19 Unknown Unknown Unknown WBC 16.1 H RBC Hgb Hct MCV MCH MCHC RDW 17.2 H Lymph % (Auto) [place] % (Auto) 9.6 H Eos % (Auto) Lymph # [place] # 1.5 H Eos # Seg Neutrophils % 73.0 H Seg Neuts % (Manual) Lymphocytes % (Manual) Monocytes % (Manual) Eosinophils % (Manual) Nucleated RBC % Seg Neutrophils # 11.7 H Seg Neutrophils # Man Lymphocytes # (Manual) Monocytes # (Manual) Eosinophils # (Manual) PT 15.4 H INR 1.23 H APTT 22.7 L POC ABG pH ABG pH POC ABG pCO2 POC ABG pO2 ABG pO2 ABG HCO3 ABG O2 Saturation ABG Base Excess ABG Hemoglobin Oxyhemoglobin Sodium Potassium Chloride Carbon Dioxide BUN Creatinine Glucose POC Glucose Uric Acid Calcium Phosphorus Magnesium AST ALT Total Creatine Kinase CK-MB (CK-2) Troponin T NT-Pro-B Natriuret Pep 6831 H Total Protein Albumin Triglycerides HDL Cholesterol Urine WBC (Auto) Urine Creatinine Urine Total Protein Vancomycin Trough 05/01/19 05/02/19 05/02/19 Unknown 00:06 00:06 WBC RBC Hgb Hct MCV MCH MCHC RDW Lymph % (Auto) [place] % (Auto) Eos % (Auto) Lymph # [place] # Eos # Seg Neutrophils % Seg Neuts % (Manual) Lymphocytes % (Manual) Monocytes % (Manual) Eosinophils % (Manual) Nucleated RBC % Seg Neutrophils # Seg Neutrophils # Man Lymphocytes # (Manual) Monocytes # (Manual) Eosinophils # (Manual) PT INR APTT POC ABG pH ABG pH POC ABG pCO2 POC ABG pO2 ABG pO2 ABG HCO3 ABG O2 Saturation ABG Base Excess ABG Hemoglobin Oxyhemoglobin Sodium Potassium Chloride Carbon Dioxide BUN Creatinine Glucose POC Glucose Uric Acid Calcium Phosphorus 4.90 H Magnesium AST ALT Total Creatine Kinase 226 H CK-MB (CK-2) 5.7 H Troponin T 0.044 H NT-Pro-B Natriuret Pep Total Protein Albumin Triglycerides 182 H HDL Cholesterol 18 L Urine WBC (Auto) Urine Creatinine Urine Total Protein Vancomycin Trough 05/02/19 05/02/19 05/02/19 02:08 04:40 04:41 WBC 17.6 H RBC Hgb Hct MCV MCH 27 L MCHC RDW 17.4 H Lymph % (Auto) 10.2 L [place] % (Auto) 11.0 H Eos % (Auto) Lymph # [place] # 1.9 H Eos # Seg Neutrophils % 78.0 H Seg Neuts % (Manual) Lymphocytes % (Manual) Monocytes % (Manual) Eosinophils % (Manual) Nucleated RBC % Seg Neutrophils # 13.8 H Seg Neutrophils # Man Lymphocytes # (Manual) Monocytes # (Manual) Eosinophils # (Manual) PT INR APTT POC ABG pH ABG pH POC ABG pCO2 46.8 H POC ABG pO2 63 L ABG pO2 ABG HCO3 ABG O2 Saturation ABG Base Excess ABG Hemoglobin Oxyhemoglobin Sodium Potassium Chloride 96.3 L Carbon Dioxide BUN 63 H Creatinine 1.7 H Glucose POC Glucose Uric Acid Calcium Phosphorus Magnesium AST ALT Total Creatine Kinase CK-MB (CK-2) Troponin T NT-Pro-B Natriuret Pep Total Protein Albumin Triglycerides HDL Cholesterol Urine WBC (Auto) Urine Creatinine Urine Total Protein Vancomycin Trough 05/02/19 05/02/19 05/02/19 04:41 04:41 16:05 WBC RBC Hgb Hct MCV MCH MCHC RDW Lymph % (Auto) [place] % (Auto) Eos % (Auto) Lymph # [place] # Eos # Seg Neutrophils % Seg Neuts % (Manual) Lymphocytes % (Manual) Monocytes % (Manual) Eosinophils % (Manual) Nucleated RBC % Seg Neutrophils # Seg Neutrophils # Man Lymphocytes # (Manual) Monocytes # (Manual) Eosinophils # (Manual) PT INR APTT POC ABG pH ABG pH POC ABG pCO2 POC ABG pO2 ABG pO2 66.6 L ABG HCO3 31.9 H ABG O2 Saturation 92.5 L ABG Base Excess 5.8 H ABG Hemoglobin 13.3 L Oxyhemoglobin 90.6 L Sodium Potassium Chloride 97.2 L Carbon Dioxide BUN 61 H Creatinine 1.8 H Glucose POC Glucose Uric Acid Calcium Phosphorus Magnesium AST ALT Total Creatine Kinase CK-MB (CK-2) 5.2 H Troponin T 0.067 H D NT-Pro-B Natriuret Pep Total Protein Albumin Triglycerides HDL Cholesterol Urine WBC (Auto) Urine Creatinine Urine Total Protein Vancomycin Trough 05/02/19 05/03/19 05/03/19 20:39 04:35 05:05 WBC 11.8 H RBC Hgb Hct MCV MCH 27 L MCHC 31 L RDW 17.2 H Lymph % (Auto) [place] % (Auto) Eos % (Auto) Lymph # [place] # Eos # Seg Neutrophils % Seg Neuts % (Manual) Lymphocytes % (Manual) Monocytes % (Manual) Eosinophils % (Manual) Nucleated RBC % Seg Neutrophils # Seg Neutrophils # Man Lymphocytes # (Manual) Monocytes # (Manual) Eosinophils # (Manual) PT INR APTT POC ABG pH ABG pH POC ABG pCO2 53.6 H 54.0 H POC ABG pO2 55 L 63 L ABG pO2 ABG HCO3 ABG O2 Saturation ABG Base Excess ABG Hemoglobin Oxyhemoglobin Sodium Potassium Chloride Carbon Dioxide BUN Creatinine Glucose POC Glucose Uric Acid Calcium Phosphorus Magnesium AST ALT Total Creatine Kinase CK-MB (CK-2) Troponin T NT-Pro-B Natriuret Pep Total Protein Albumin Triglycerides HDL Cholesterol Urine WBC (Auto) Urine Creatinine Urine Total Protein Vancomycin Trough 05/03/19 05/03/19 05/03/19 05:05 10:55 16:48 WBC RBC Hgb Hct MCV MCH MCHC RDW Lymph % (Auto) [place] % (Auto) Eos % (Auto) Lymph # [place] # Eos # Seg Neutrophils % Seg Neuts % (Manual) Lymphocytes % (Manual) Monocytes % (Manual) Eosinophils % (Manual) Nucleated RBC % Seg Neutrophils # Seg Neutrophils # Man Lymphocytes # (Manual) Monocytes # (Manual) Eosinophils # (Manual) PT INR APTT POC ABG pH 7.604 H ABG pH POC ABG pCO2 POC ABG pO2 58 L ABG pO2 ABG HCO3 ABG O2 Saturation ABG Base Excess ABG Hemoglobin Oxyhemoglobin Sodium Potassium Chloride Carbon Dioxide BUN 52 H Creatinine 1.9 H Glucose 103 H POC Glucose Uric Acid Calcium Phosphorus Magnesium AST ALT Total Creatine Kinase CK-MB (CK-2) Troponin T NT-Pro-B Natriuret Pep Total Protein Albumin Triglycerides HDL Cholesterol Urine WBC (Auto) 33.0 H Urine Creatinine Urine Total Protein Vancomycin Trough 05/04/19 05/04/19 05/04/19 04:49 06:50 06:50 WBC 16.0 H RBC Hgb Hct MCV MCH 27 L MCHC 31 L RDW 17.8 H Lymph % (Auto) [place] % (Auto) Eos % (Auto) Lymph # [place] # Eos # Seg Neutrophils % Seg Neuts % (Manual) Lymphocytes % (Manual) Monocytes % (Manual) Eosinophils % (Manual) Nucleated RBC % Seg Neutrophils # Seg Neutrophils # Man Lymphocytes # (Manual) Monocytes # (Manual) Eosinophils # (Manual) PT INR APTT POC ABG pH 7.273 L ABG pH POC ABG pCO2 POC ABG pO2 ABG pO2 ABG HCO3 ABG O2 Saturation ABG Base Excess ABG Hemoglobin Oxyhemoglobin Sodium 148 H Potassium 5.5 H Chloride Carbon Dioxide BUN 53 H Creatinine 3.3 H D Glucose 106 H POC Glucose Uric Acid Calcium 8.3 L Phosphorus Magnesium AST ALT Total Creatine Kinase CK-MB (CK-2) Troponin T NT-Pro-B Natriuret Pep Total Protein Albumin Triglycerides HDL Cholesterol Urine WBC (Auto) Urine Creatinine Urine Total Protein Vancomycin Trough 05/05/19 05/05/19 05/05/19 00:05 04:30 05:00 WBC RBC Hgb Hct MCV MCH MCHC RDW Lymph % (Auto) [place] % (Auto) Eos % (Auto) Lymph # [place] # Eos # Seg Neutrophils % Seg Neuts % (Manual) Lymphocytes % (Manual) Monocytes % (Manual) Eosinophils % (Manual) Nucleated RBC % Seg Neutrophils # Seg Neutrophils # Man Lymphocytes # (Manual) Monocytes # (Manual) Eosinophils # (Manual) PT INR APTT POC ABG pH 7.225 L ABG pH POC ABG pCO2 > 70 H POC ABG pO2 ABG pO2 ABG HCO3 ABG O2 Saturation ABG Base Excess ABG Hemoglobin Oxyhemoglobin Sodium 151 H Potassium 5.1 H Chloride Carbon Dioxide BUN 64 H Creatinine 3.5 H Glucose 117 H POC Glucose 141 H Uric Acid Calcium 7.5 L Phosphorus Magnesium AST 93 H ALT 65 H Total Creatine Kinase CK-MB (CK-2) Troponin T NT-Pro-B Natriuret Pep Total Protein Albumin 2.9 L Triglycerides HDL Cholesterol Urine WBC (Auto) Urine Creatinine Urine Total Protein Vancomycin Trough 05/05/19 05/05/19 05/05/19 05:00 12:02 17:46 WBC 12.0 H RBC Hgb 11.3 L Hct MCV MCH 27 L MCHC 30 L RDW 18.4 H Lymph % (Auto) 7.9 L [place] % (Auto) 10.2 H Eos % (Auto) Lymph # 1.0 L [place] # 1.2 H Eos # Seg Neutrophils % 80.8 H Seg Neuts % (Manual) Lymphocytes % (Manual) Monocytes % (Manual) Eosinophils % (Manual) Nucleated RBC % Seg Neutrophils # 9.7 H Seg Neutrophils # Man Lymphocytes # (Manual) Monocytes # (Manual) Eosinophils # (Manual) PT INR APTT POC ABG pH ABG pH POC ABG pCO2 POC ABG pO2 ABG pO2 ABG HCO3 ABG O2 Saturation ABG Base Excess ABG Hemoglobin Oxyhemoglobin Sodium Potassium Chloride Carbon Dioxide BUN Creatinine Glucose POC Glucose 125 H 112 H Uric Acid Calcium Phosphorus Magnesium AST ALT Total Creatine Kinase CK-MB (CK-2) Troponin T NT-Pro-B Natriuret Pep Total Protein Albumin Triglycerides HDL Cholesterol Urine WBC (Auto) Urine Creatinine Urine Total Protein Vancomycin Trough 05/05/19 05/06/19 05/06/19 23:42 03:58 04:45 WBC 11.4 H RBC Hgb 10.7 L Hct 34.2 L MCV MCH 27 L MCHC 31 L RDW 16.9 H Lymph % (Auto) [place] % (Auto) Eos % (Auto) Lymph # [place] # Eos # Seg Neutrophils % Seg Neuts % (Manual) Lymphocytes % (Manual) Monocytes % (Manual) Eosinophils % (Manual) Nucleated RBC % Seg Neutrophils # Seg Neutrophils # Man Lymphocytes # (Manual) Monocytes # (Manual) Eosinophils # (Manual) PT INR APTT POC ABG pH ABG pH POC ABG pCO2 62.4 H POC ABG pO2 111 H ABG pO2 ABG HCO3 ABG O2 Saturation ABG Base Excess ABG Hemoglobin Oxyhemoglobin Sodium Potassium Chloride Carbon Dioxide BUN Creatinine Glucose POC Glucose 128 H Uric Acid Calcium Phosphorus Magnesium AST ALT Total Creatine Kinase CK-MB (CK-2) Troponin T NT-Pro-B Natriuret Pep Total Protein Albumin Triglycerides HDL Cholesterol Urine WBC (Auto) Urine Creatinine Urine Total Protein Vancomycin Trough 05/06/19 05/06/19 05/06/19 04:45 05:33 12:30 WBC RBC Hgb Hct MCV MCH MCHC RDW Lymph % (Auto) [place] % (Auto) Eos % (Auto) Lymph # [place] # Eos # Seg Neutrophils % Seg Neuts % (Manual) Lymphocytes % (Manual) Monocytes % (Manual) Eosinophils % (Manual) Nucleated RBC % Seg Neutrophils # Seg Neutrophils # Man Lymphocytes # (Manual) Monocytes # (Manual) Eosinophils # (Manual) PT INR APTT POC ABG pH ABG pH POC ABG pCO2 POC ABG pO2 ABG pO2 ABG HCO3 ABG O2 Saturation ABG Base Excess ABG Hemoglobin Oxyhemoglobin Sodium 149 H Potassium Chloride Carbon Dioxide 31 H BUN 67 H Creatinine 3.2 H Glucose 125 H POC Glucose 117 H 116 H Uric Acid Calcium 7.5 L Phosphorus Magnesium AST ALT Total Creatine Kinase CK-MB (CK-2) Troponin T NT-Pro-B Natriuret Pep Total Protein Albumin Triglycerides HDL Cholesterol Urine WBC (Auto) Urine Creatinine Urine Total Protein Vancomycin Trough 05/06/19 05/06/19 05/07/19 18:34 23:16 05:22 WBC RBC Hgb Hct MCV MCH MCHC RDW Lymph % (Auto) [place] % (Auto) Eos % (Auto) Lymph # [place] # Eos # Seg Neutrophils % Seg Neuts % (Manual) Lymphocytes % (Manual) Monocytes % (Manual) Eosinophils % (Manual) Nucleated RBC % Seg Neutrophils # Seg Neutrophils # Man Lymphocytes # (Manual) Monocytes # (Manual) Eosinophils # (Manual) PT INR APTT POC ABG pH ABG pH POC ABG pCO2 POC ABG pO2 ABG pO2 ABG HCO3 ABG O2 Saturation ABG Base Excess ABG Hemoglobin Oxyhemoglobin Sodium Potassium Chloride Carbon Dioxide BUN Creatinine Glucose POC Glucose 128 H 143 H 166 H Uric Acid Calcium Phosphorus Magnesium AST ALT Total Creatine Kinase CK-MB (CK-2) Troponin T NT-Pro-B Natriuret Pep Total Protein Albumin Triglycerides HDL Cholesterol Urine WBC (Auto) Urine Creatinine Urine Total Protein Vancomycin Trough 05/07/19 05/07/19 05/07/19 06:33 07:03 09:35 WBC RBC Hgb Hct MCV MCH MCHC RDW Lymph % (Auto) [place] % (Auto) Eos % (Auto) Lymph # [place] # Eos # Seg Neutrophils % Seg Neuts % (Manual) Lymphocytes % (Manual) Monocytes % (Manual) Eosinophils % (Manual) Nucleated RBC % Seg Neutrophils # Seg Neutrophils # Man Lymphocytes # (Manual) Monocytes # (Manual) Eosinophils # (Manual) PT INR APTT POC ABG pH 7.263 L 7.288 L ABG pH POC ABG pCO2 POC ABG pO2 51 L 56 L ABG pO2 ABG HCO3 ABG O2 Saturation ABG Base Excess ABG Hemoglobin Oxyhemoglobin Sodium Potassium Chloride Carbon Dioxide BUN 76 H Creatinine 3.2 H Glucose 147 H POC Glucose Uric Acid Calcium 7.9 L Phosphorus Magnesium AST ALT Total Creatine Kinase CK-MB (CK-2) Troponin T NT-Pro-B Natriuret Pep Total Protein Albumin Triglycerides HDL Cholesterol Urine WBC (Auto) Urine Creatinine Urine Total Protein Vancomycin Trough 05/07/19 05/07/19 05/07/19 09:35 12:17 13:45 WBC 13.4 H RBC Hgb 11.6 L Hct MCV MCH 27 L MCHC 31 L RDW 17.5 H Lymph % (Auto) [place] % (Auto) Eos % (Auto) Lymph # [place] # Eos # Seg Neutrophils % Seg Neuts % (Manual) Lymphocytes % (Manual) Monocytes % (Manual) Eosinophils % (Manual) Nucleated RBC % Seg Neutrophils # Seg Neutrophils # Man Lymphocytes # (Manual) Monocytes # (Manual) Eosinophils # (Manual) PT INR APTT POC ABG pH ABG pH POC ABG pCO2 POC ABG pO2 ABG pO2 ABG HCO3 ABG O2 Saturation ABG Base Excess ABG Hemoglobin Oxyhemoglobin Sodium Potassium Chloride Carbon Dioxide BUN Creatinine Glucose POC Glucose 130 H Uric Acid 18.0 H Calcium Phosphorus Magnesium AST ALT Total Creatine Kinase CK-MB (CK-2) Troponin T NT-Pro-B Natriuret Pep Total Protein Albumin Triglycerides HDL Cholesterol Urine WBC (Auto) Urine Creatinine Urine Total Protein Vancomycin Trough 05/07/19 05/07/19 05/08/19 17:39 22:40 05:06 WBC RBC Hgb Hct MCV MCH MCHC RDW Lymph % (Auto) [place] % (Auto) Eos % (Auto) Lymph # [place] # Eos # Seg Neutrophils % Seg Neuts % (Manual) Lymphocytes % (Manual) Monocytes % (Manual) Eosinophils % (Manual) Nucleated RBC % Seg Neutrophils # Seg Neutrophils # Man Lymphocytes # (Manual) Monocytes # (Manual) Eosinophils # (Manual) PT INR APTT POC ABG pH ABG pH POC ABG pCO2 POC ABG pO2 ABG pO2 ABG HCO3 ABG O2 Saturation ABG Base Excess ABG Hemoglobin Oxyhemoglobin Sodium Potassium Chloride Carbon Dioxide BUN Creatinine Glucose POC Glucose 116 H 148 H Uric Acid Calcium Phosphorus Magnesium AST ALT Total Creatine Kinase CK-MB (CK-2) Troponin T NT-Pro-B Natriuret Pep Total Protein Albumin Triglycerides HDL Cholesterol Urine WBC (Auto) Urine Creatinine 292.8 H Urine Total Protein 269 H Vancomycin Trough 05/08/19 05/08/19 05/08/19 05:32 11:28 13:48 WBC RBC Hgb Hct MCV MCH MCHC RDW Lymph % (Auto) [place] % (Auto) Eos % (Auto) Lymph # [place] # Eos # Seg Neutrophils % Seg Neuts % (Manual) Lymphocytes % (Manual) Monocytes % (Manual) Eosinophils % (Manual) Nucleated RBC % Seg Neutrophils # Seg Neutrophils # Man Lymphocytes # (Manual) Monocytes # (Manual) Eosinophils # (Manual) PT INR APTT POC ABG pH ABG pH POC ABG pCO2 45.4 H POC ABG pO2 64 L ABG pO2 ABG HCO3 ABG O2 Saturation ABG Base Excess ABG Hemoglobin Oxyhemoglobin Sodium Potassium Chloride Carbon Dioxide BUN 73 H Creatinine 2.7 H Glucose 127 H POC Glucose 107 H Uric Acid Calcium 7.6 L Phosphorus Magnesium AST ALT Total Creatine Kinase CK-MB (CK-2) Troponin T NT-Pro-B Natriuret Pep Total Protein Albumin Triglycerides HDL Cholesterol Urine WBC (Auto) Urine Creatinine Urine Total Protein Vancomycin Trough 05/08/19 05/09/19 05/09/19 17:48 04:50 04:53 WBC RBC 3.07 L Hgb 8.5 L D Hct 29.3 L D MCV 96 H MCH MCHC 29 L RDW 18.1 H Lymph % (Auto) [place] % (Auto) Eos % (Auto) Lymph # [place] # Eos # Seg Neutrophils % Seg Neuts % (Manual) Lymphocytes % (Manual) Monocytes % (Manual) Eosinophils % (Manual) Nucleated RBC % Seg Neutrophils # Seg Neutrophils # Man Lymphocytes # (Manual) Monocytes # (Manual) Eosinophils # (Manual) PT INR APTT POC ABG pH 7.316 L ABG pH POC ABG pCO2 66.0 H POC ABG pO2 69 L ABG pO2 ABG HCO3 ABG O2 Saturation ABG Base Excess ABG Hemoglobin Oxyhemoglobin Sodium Potassium Chloride Carbon Dioxide BUN Creatinine Glucose POC Glucose 155 H Uric Acid Calcium Phosphorus Magnesium AST ALT Total Creatine Kinase CK-MB (CK-2) Troponin T NT-Pro-B Natriuret Pep Total Protein Albumin Triglycerides HDL Cholesterol Urine WBC (Auto) Urine Creatinine Urine Total Protein Vancomycin Trough 05/09/19 05/09/19 05/09/19 05:46 07:24 12:10 WBC RBC Hgb Hct MCV MCH MCHC RDW Lymph % (Auto) [place] % (Auto) Eos % (Auto) Lymph # [place] # Eos # Seg Neutrophils % Seg Neuts % (Manual) Lymphocytes % (Manual) Monocytes % (Manual) Eosinophils % (Manual) Nucleated RBC % Seg Neutrophils # Seg Neutrophils # Man Lymphocytes # (Manual) Monocytes # (Manual) Eosinophils # (Manual) PT INR APTT POC ABG pH ABG pH POC ABG pCO2 POC ABG pO2 ABG pO2 ABG HCO3 ABG O2 Saturation ABG Base Excess ABG Hemoglobin Oxyhemoglobin Sodium Potassium Chloride Carbon Dioxide BUN 73 H Creatinine 2.4 H Glucose 153 H POC Glucose 123 H 148 H Uric Acid Calcium 8.2 L Phosphorus Magnesium AST 45 H ALT Total Creatine Kinase CK-MB (CK-2) Troponin T NT-Pro-B Natriuret Pep Total Protein 6.0 L Albumin 1.9 L Triglycerides HDL Cholesterol Urine WBC (Auto) Urine Creatinine Urine Total Protein Vancomycin Trough 05/09/19 05/09/19 05/10/19 18:23 23:26 04:52 WBC RBC Hgb Hct MCV MCH MCHC RDW Lymph % (Auto) [place] % (Auto) Eos % (Auto) Lymph # [place] # Eos # Seg Neutrophils % Seg Neuts % (Manual) Lymphocytes % (Manual) Monocytes % (Manual) Eosinophils % (Manual) Nucleated RBC % Seg Neutrophils # Seg Neutrophils # Man Lymphocytes # (Manual) Monocytes # (Manual) Eosinophils # (Manual) PT INR APTT POC ABG pH 7.305 L ABG pH POC ABG pCO2 62.6 H POC ABG pO2 ABG pO2 ABG HCO3 ABG O2 Saturation ABG Base Excess ABG Hemoglobin Oxyhemoglobin Sodium Potassium Chloride Carbon Dioxide BUN Creatinine Glucose POC Glucose 147 H 121 H Uric Acid Calcium Phosphorus Magnesium AST ALT Total Creatine Kinase CK-MB (CK-2) Troponin T NT-Pro-B Natriuret Pep Total Protein Albumin Triglycerides HDL Cholesterol Urine WBC (Auto) Urine Creatinine Urine Total Protein Vancomycin Trough 05/10/19 05/10/19 05/10/19 05:00 05:00 05:50 WBC RBC Hgb 10.3 L Hct 33.7 L MCV MCH 27 L MCHC 31 L RDW 17.0 H Lymph % (Auto) [place] % (Auto) Eos % (Auto) Lymph # [place] # Eos # Seg Neutrophils % Seg Neuts % (Manual) Lymphocytes % (Manual) Monocytes % (Manual) Eosinophils % (Manual) Nucleated RBC % Seg Neutrophils # Seg Neutrophils # Man Lymphocytes # (Manual) Monocytes # (Manual) Eosinophils # (Manual) PT INR APTT POC ABG pH ABG pH POC ABG pCO2 POC ABG pO2 ABG pO2 ABG HCO3 ABG O2 Saturation ABG Base Excess ABG Hemoglobin Oxyhemoglobin Sodium 147 H Potassium Chloride Carbon Dioxide BUN 70 H Creatinine 2.6 H Glucose 155 H POC Glucose 158 H Uric Acid Calcium 8.2 L Phosphorus Magnesium AST ALT Total Creatine Kinase CK-MB (CK-2) Troponin T NT-Pro-B Natriuret Pep Total Protein 6.1 L Albumin 2.5 L Triglycerides HDL Cholesterol Urine WBC (Auto) Urine Creatinine Urine Total Protein Vancomycin Trough 05/10/19 05/11/19 05/11/19 13:14 07:26 11:40 WBC RBC Hgb Hct MCV MCH MCHC RDW Lymph % (Auto) [place] % (Auto) Eos % (Auto) Lymph # [place] # Eos # Seg Neutrophils % Seg Neuts % (Manual) Lymphocytes % (Manual) Monocytes % (Manual) Eosinophils % (Manual) Nucleated RBC % Seg Neutrophils # Seg Neutrophils # Man Lymphocytes # (Manual) Monocytes # (Manual) Eosinophils # (Manual) PT INR APTT POC ABG pH ABG pH POC ABG pCO2 48.0 H POC ABG pO2 58 L ABG pO2 ABG HCO3 ABG O2 Saturation ABG Base Excess ABG Hemoglobin Oxyhemoglobin Sodium 147 H Potassium Chloride 107.2 H Carbon Dioxide BUN 67 H Creatinine 2.6 H Glucose 121 H POC Glucose 159 H Uric Acid Calcium Phosphorus Magnesium AST ALT Total Creatine Kinase CK-MB (CK-2) Troponin T NT-Pro-B Natriuret Pep Total Protein Albumin Triglycerides HDL Cholesterol Urine WBC (Auto) Urine Creatinine Urine Total Protein Vancomycin Trough 05/11/19 05/11/19 05/12/19 18:13 23:46 04:40 WBC RBC Hgb Hct MCV MCH MCHC RDW Lymph % (Auto) [place] % (Auto) Eos % (Auto) Lymph # [place] # Eos # Seg Neutrophils % Seg Neuts % (Manual) Lymphocytes % (Manual) Monocytes % (Manual) Eosinophils % (Manual) Nucleated RBC % Seg Neutrophils # Seg Neutrophils # Man Lymphocytes # (Manual) Monocytes # (Manual) Eosinophils # (Manual) PT INR APTT POC ABG pH ABG pH 7.264 L POC ABG pCO2 POC ABG pO2 ABG pO2 66.8 L ABG HCO3 31.0 H ABG O2 Saturation 92.0 L ABG Base Excess ABG Hemoglobin 10.3 L Oxyhemoglobin 90.1 L Sodium Potassium Chloride Carbon Dioxide BUN Creatinine Glucose POC Glucose 120 H 121 H Uric Acid Calcium Phosphorus Magnesium AST ALT Total Creatine Kinase CK-MB (CK-2) Troponin T NT-Pro-B Natriuret Pep Total Protein Albumin Triglycerides HDL Cholesterol Urine WBC (Auto) Urine Creatinine Urine Total Protein Vancomycin Trough 05/12/19 05/12/19 05/12/19 04:45 04:45 11:14 WBC RBC Hgb 10.2 L Hct 32.4 L MCV MCH MCHC 31 L RDW 17.2 H Lymph % (Auto) [place] % (Auto) Eos % (Auto) Lymph # [place] # Eos # Seg Neutrophils % Seg Neuts % (Manual) Lymphocytes % (Manual) Monocytes % (Manual) Eosinophils % (Manual) Nucleated RBC % Seg Neutrophils # Seg Neutrophils # Man Lymphocytes # (Manual) Monocytes # (Manual) Eosinophils # (Manual) PT INR APTT POC ABG pH 7.284 L ABG pH POC ABG pCO2 67.8 H POC ABG pO2 ABG pO2 ABG HCO3 ABG O2 Saturation ABG Base Excess ABG Hemoglobin Oxyhemoglobin Sodium Potassium Chloride Carbon Dioxide BUN 63 H Creatinine 2.4 H Glucose 110 H POC Glucose Uric Acid Calcium Phosphorus Magnesium AST ALT Total Creatine Kinase CK-MB (CK-2) Troponin T NT-Pro-B Natriuret Pep Total Protein Albumin Triglycerides HDL Cholesterol Urine WBC (Auto) Urine Creatinine Urine Total Protein Vancomycin Trough 05/12/19 05/12/19 05/13/19 11:44 23:11 04:30 WBC RBC Hgb Hct MCV MCH MCHC RDW Lymph % (Auto) [place] % (Auto) Eos % (Auto) Lymph # [place] # Eos # Seg Neutrophils % Seg Neuts % (Manual) Lymphocytes % (Manual) Monocytes % (Manual) Eosinophils % (Manual) Nucleated RBC % Seg Neutrophils # Seg Neutrophils # Man Lymphocytes # (Manual) Monocytes # (Manual) Eosinophils # (Manual) PT INR APTT POC ABG pH ABG pH 7.288 L POC ABG pCO2 POC ABG pO2 ABG pO2 109.7 H ABG HCO3 30.9 H ABG O2 Saturation ABG Base Excess 3.2 H ABG Hemoglobin 9.6 L Oxyhemoglobin Sodium Potassium Chloride Carbon Dioxide BUN Creatinine Glucose POC Glucose 126 H 147 H Uric Acid Calcium Phosphorus Magnesium AST ALT Total Creatine Kinase CK-MB (CK-2) Troponin T NT-Pro-B Natriuret Pep Total Protein Albumin Triglycerides HDL Cholesterol Urine WBC (Auto) Urine Creatinine Urine Total Protein Vancomycin Trough 05/13/19 05/13/19 05/14/19 06:27 11:58 04:00 WBC RBC 3.16 L Hgb 9.3 L Hct 27.9 L MCV MCH MCHC RDW 17.1 H Lymph % (Auto) [place] % (Auto) Eos % (Auto) Lymph # [place] # Eos # Seg Neutrophils % Seg Neuts % (Manual) Lymphocytes % (Manual) Monocytes % (Manual) Eosinophils % (Manual) Nucleated RBC % Seg Neutrophils # Seg Neutrophils # Man Lymphocytes # (Manual) Monocytes # (Manual) Eosinophils # (Manual) PT INR APTT POC ABG pH ABG pH POC ABG pCO2 POC ABG pO2 ABG pO2 ABG HCO3 ABG O2 Saturation ABG Base Excess ABG Hemoglobin Oxyhemoglobin Sodium Potassium Chloride Carbon Dioxide BUN Creatinine Glucose POC Glucose 113 H 130 H Uric Acid Calcium Phosphorus Magnesium AST ALT Total Creatine Kinase CK-MB (CK-2) Troponin T NT-Pro-B Natriuret Pep Total Protein Albumin Triglycerides HDL Cholesterol Urine WBC (Auto) Urine Creatinine Urine Total Protein Vancomycin Trough 05/14/19 05/14/19 05/14/19 04:00 04:34 05:32 WBC RBC Hgb Hct MCV MCH MCHC RDW Lymph % (Auto) [place] % (Auto) Eos % (Auto) Lymph # [place] # Eos # Seg Neutrophils % Seg Neuts % (Manual) Lymphocytes % (Manual) Monocytes % (Manual) Eosinophils % (Manual) Nucleated RBC % Seg Neutrophils # Seg Neutrophils # Man Lymphocytes # (Manual) Monocytes # (Manual) Eosinophils # (Manual) PT INR APTT POC ABG pH 7.328 L ABG pH POC ABG pCO2 61.7 H POC ABG pO2 ABG pO2 ABG HCO3 ABG O2 Saturation ABG Base Excess ABG Hemoglobin Oxyhemoglobin Sodium 135 L D Potassium Chloride Carbon Dioxide BUN 57 H Creatinine 2.2 H Glucose 115 H POC Glucose 115 H Uric Acid Calcium 8.1 L Phosphorus Magnesium AST ALT Total Creatine Kinase CK-MB (CK-2) Troponin T NT-Pro-B Natriuret Pep Total Protein Albumin Triglycerides HDL Cholesterol Urine WBC (Auto) Urine Creatinine Urine Total Protein Vancomycin Trough 05/14/19 05/15/19 05/15/19 12:11 05:10 05:24 WBC RBC Hgb Hct MCV MCH MCHC RDW Lymph % (Auto) [place] % (Auto) Eos % (Auto) Lymph # [place] # Eos # Seg Neutrophils % Seg Neuts % (Manual) Lymphocytes % (Manual) Monocytes % (Manual) Eosinophils % (Manual) Nucleated RBC % Seg Neutrophils # Seg Neutrophils # Man Lymphocytes # (Manual) Monocytes # (Manual) Eosinophils # (Manual) PT INR APTT POC ABG pH ABG pH 7.342 L POC ABG pCO2 POC ABG pO2 ABG pO2 79.1 L ABG HCO3 28.2 H ABG O2 Saturation ABG Base Excess ABG Hemoglobin 7.0 L Oxyhemoglobin 94.4 L Sodium Potassium Chloride Carbon Dioxide BUN Creatinine Glucose POC Glucose 110 H 116 H Uric Acid Calcium Phosphorus Magnesium AST ALT Total Creatine Kinase CK-MB (CK-2) Troponin T NT-Pro-B Natriuret Pep Total Protein Albumin Triglycerides HDL Cholesterol Urine WBC (Auto) Urine Creatinine Urine Total Protein Vancomycin Trough 05/15/19 05/15/19 05/16/19 09:00 18:12 04:50 WBC RBC Hgb Hct MCV MCH MCHC RDW Lymph % (Auto) [place] % (Auto) Eos % (Auto) Lymph # [place] # Eos # Seg Neutrophils % Seg Neuts % (Manual) Lymphocytes % (Manual) Monocytes % (Manual) Eosinophils % (Manual) Nucleated RBC % Seg Neutrophils # Seg Neutrophils # Man Lymphocytes # (Manual) Monocytes # (Manual) Eosinophils # (Manual) PT INR APTT POC ABG pH ABG pH 7.250 L POC ABG pCO2 POC ABG pO2 ABG pO2 76.4 L ABG HCO3 ABG O2 Saturation 94.6 L ABG Base Excess -3.1 L ABG Hemoglobin 9.7 L Oxyhemoglobin 92.4 L Sodium Potassium Chloride Carbon Dioxide BUN Creatinine Glucose POC Glucose 110 H Uric Acid Calcium Phosphorus Magnesium AST ALT Total Creatine Kinase CK-MB (CK-2) Troponin T NT-Pro-B Natriuret Pep Total Protein Albumin Triglycerides HDL Cholesterol Urine WBC (Auto) Urine Creatinine Urine Total Protein Vancomycin Trough 20.5 H 05/16/19 05/16/19 05/17/19 05:50 05:50 04:20 WBC RBC 3.36 L 3.44 L Hgb 9.4 L 9.3 L Hct 29.1 L 29.7 L MCV MCH 27 L MCHC 31 L RDW 17.6 H 17.6 H Lymph % (Auto) [place] % (Auto) Eos % (Auto) Lymph # [place] # Eos # Seg Neutrophils % Seg Neuts % (Manual) 77.0 H Lymphocytes % (Manual) 5.0 L Monocytes % (Manual) Eosinophils % (Manual) 10.0 H Nucleated RBC % Seg Neutrophils # Seg Neutrophils # Man Lymphocytes # (Manual) 0.5 L Monocytes # (Manual) Eosinophils # (Manual) 0.9 H PT INR APTT POC ABG pH ABG pH POC ABG pCO2 POC ABG pO2 ABG pO2 ABG HCO3 ABG O2 Saturation ABG Base Excess ABG Hemoglobin Oxyhemoglobin Sodium Potassium Chloride Carbon Dioxide BUN 83 H Creatinine 4.4 H D Glucose 118 H POC Glucose Uric Acid Calcium Phosphorus Magnesium AST ALT Total Creatine Kinase CK-MB (CK-2) Troponin T NT-Pro-B Natriuret Pep Total Protein Albumin Triglycerides HDL Cholesterol Urine WBC (Auto) Urine Creatinine Urine Total Protein Vancomycin Trough 05/17/19 05/17/19 05/18/19 04:30 Unknown 01:50 WBC RBC 3.49 L Hgb 9.4 L Hct 30.0 L MCV MCH 27 L MCHC 31 L RDW 17.8 H Lymph % (Auto) 7.9 L [place] % (Auto) 15.4 H Eos % (Auto) 6.3 H Lymph # 0.7 L [place] # 1.4 H Eos # 0.6 H Seg Neutrophils % 70.2 H Seg Neuts % (Manual) Lymphocytes % (Manual) Monocytes % (Manual) Eosinophils % (Manual) Nucleated RBC % Seg Neutrophils # Seg Neutrophils # Man Lymphocytes # (Manual) Monocytes # (Manual) Eosinophils # (Manual) PT INR APTT POC ABG pH ABG pH 7.272 L POC ABG pCO2 POC ABG pO2 ABG pO2 75.7 L ABG HCO3 ABG O2 Saturation 93.8 L ABG Base Excess -3.0 L ABG Hemoglobin 7.8 L Oxyhemoglobin 91.6 L Sodium Potassium 5.2 H Chloride Carbon Dioxide BUN 96 H Creatinine 5.7 H Glucose 112 H POC Glucose Uric Acid Calcium Phosphorus Magnesium AST ALT Total Creatine Kinase CK-MB (CK-2) Troponin T NT-Pro-B Natriuret Pep Total Protein Albumin Triglycerides 173 H HDL Cholesterol Urine WBC (Auto) Urine Creatinine Urine Total Protein Vancomycin Trough 05/18/19 05/18/19 05/18/19 01:50 04:41 05:24 WBC RBC Hgb Hct MCV MCH MCHC RDW Lymph % (Auto) [place] % (Auto) Eos % (Auto) Lymph # [place] # Eos # Seg Neutrophils % Seg Neuts % (Manual) Lymphocytes % (Manual) Monocytes % (Manual) Eosinophils % (Manual) Nucleated RBC % Seg Neutrophils # Seg Neutrophils # Man Lymphocytes # (Manual) Monocytes # (Manual) Eosinophils # (Manual) PT INR APTT POC ABG pH 7.260 L ABG pH POC ABG pCO2 54.9 H POC ABG pO2 ABG pO2 ABG HCO3 ABG O2 Saturation ABG Base Excess ABG Hemoglobin Oxyhemoglobin Sodium Potassium 5.6 H Chloride Carbon Dioxide BUN 104 H Creatinine 6.6 H Glucose 107 H POC Glucose 106 H Uric Acid Calcium Phosphorus Magnesium AST ALT Total Creatine Kinase CK-MB (CK-2) Troponin T NT-Pro-B Natriuret Pep Total Protein Albumin Triglycerides HDL Cholesterol Urine WBC (Auto) Urine Creatinine Urine Total Protein Vancomycin Trough 05/18/19 05/18/19 05/19/19 11:34 23:26 04:06 WBC RBC 3.22 L Hgb 8.8 L Hct 27.3 L MCV MCH 27 L MCHC RDW 17.5 H Lymph % (Auto) [place] % (Auto) Eos % (Auto) Lymph # [place] # Eos # Seg Neutrophils % Seg Neuts % (Manual) 74.0 H Lymphocytes % (Manual) 4.0 L Monocytes % (Manual) 11.0 H Eosinophils % (Manual) 7.0 H Nucleated RBC % 1.0 H Seg Neutrophils # Seg Neutrophils # Man Lymphocytes # (Manual) 0.3 L Monocytes # (Manual) 0.9 H Eosinophils # (Manual) 0.6 H PT INR APTT POC ABG pH ABG pH POC ABG pCO2 POC ABG pO2 ABG pO2 ABG HCO3 ABG O2 Saturation ABG Base Excess ABG Hemoglobin Oxyhemoglobin Sodium Potassium Chloride Carbon Dioxide BUN Creatinine Glucose POC Glucose 152 H 112 H Uric Acid Calcium Phosphorus Magnesium AST ALT Total Creatine Kinase CK-MB (CK-2) Troponin T NT-Pro-B Natriuret Pep Total Protein Albumin Triglycerides HDL Cholesterol Urine WBC (Auto) Urine Creatinine Urine Total Protein Vancomycin Trough 05/19/19 05/19/19 05/20/19 04:06 06:00 04:00 WBC RBC 3.40 L Hgb 9.2 L Hct 28.6 L MCV MCH 27 L MCHC RDW 17.6 H Lymph % (Auto) [place] % (Auto) Eos % (Auto) Lymph # [place] # Eos # Seg Neutrophils % Seg Neuts % (Manual) Lymphocytes % (Manual) 11.0 L Monocytes % (Manual) Eosinophils % (Manual) 14.0 H Nucleated RBC % Seg Neutrophils # Seg Neutrophils # Man Lymphocytes # (Manual) 1.1 L Monocytes # (Manual) Eosinophils # (Manual) 1.4 H PT INR APTT POC ABG pH ABG pH 7.315 L POC ABG pCO2 POC ABG pO2 ABG pO2 ABG HCO3 ABG O2 Saturation ABG Base Excess ABG Hemoglobin 6.7 L Oxyhemoglobin 94.1 L Sodium Potassium 5.2 H Chloride Carbon Dioxide 21 L BUN 110 H Creatinine 7.2 H Glucose POC Glucose Uric Acid Calcium 8.3 L Phosphorus Magnesium AST ALT Total Creatine Kinase CK-MB (CK-2) Troponin T NT-Pro-B Natriuret Pep Total Protein Albumin Triglycerides HDL Cholesterol Urine WBC (Auto) Urine Creatinine Urine Total Protein Vancomycin Trough 05/20/19 05/20/19 05/20/19 04:00 05:48 12:00 WBC RBC Hgb Hct MCV MCH MCHC RDW Lymph % (Auto) [place] % (Auto) Eos % (Auto) Lymph # [place] # Eos # Seg Neutrophils % Seg Neuts % (Manual) Lymphocytes % (Manual) Monocytes % (Manual) Eosinophils % (Manual) Nucleated RBC % Seg Neutrophils # Seg Neutrophils # Man Lymphocytes # (Manual) Monocytes # (Manual) Eosinophils # (Manual) PT INR APTT POC ABG pH ABG pH 7.281 L POC ABG pCO2 POC ABG pO2 ABG pO2 78.7 L ABG HCO3 ABG O2 Saturation 94.5 L ABG Base Excess -3.0 L ABG Hemoglobin 9.9 L Oxyhemoglobin 92.5 L Sodium 136 L Potassium 5.7 H Chloride 96.3 L Carbon Dioxide BUN 125 H Creatinine 8.3 H Glucose 106 H POC Glucose Uric Acid Calcium Phosphorus Magnesium AST ALT Total Creatine Kinase CK-MB (CK-2) Troponin T NT-Pro-B Natriuret Pep Total Protein Albumin Triglycerides HDL Cholesterol Urine WBC (Auto) 26.0 H Urine Creatinine Urine Total Protein Vancomycin Trough 05/21/19 05/21/19 05/21/19 04:33 05:20 Unknown WBC RBC 3.38 L Hgb 9.1 L Hct 28.5 L MCV MCH 27 L MCHC RDW 17.4 H Lymph % (Auto) [place] % (Auto) Eos % (Auto) Lymph # [place] # Eos # Seg Neutrophils % Seg Neuts % (Manual) 71.0 H Lymphocytes % (Manual) 1.0 L Monocytes % (Manual) 11.0 H Eosinophils % (Manual) 6.0 H Nucleated RBC % Seg Neutrophils # Seg Neutrophils # Man Lymphocytes # (Manual) 0.1 L Monocytes # (Manual) 1.0 H Eosinophils # (Manual) 0.6 H PT INR APTT POC ABG pH 7.315 L ABG pH POC ABG pCO2 57.8 H POC ABG pO2 68 L ABG pO2 ABG HCO3 ABG O2 Saturation ABG Base Excess ABG Hemoglobin Oxyhemoglobin Sodium Potassium Chloride 96.3 L Carbon Dioxide BUN 102 H Creatinine 7.0 H Glucose 103 H POC Glucose Uric Acid Calcium Phosphorus Magnesium AST ALT Total Creatine Kinase CK-MB (CK-2) Troponin T NT-Pro-B Natriuret Pep Total Protein Albumin Triglycerides HDL Cholesterol Urine WBC (Auto) Urine Creatinine Urine Total Protein Vancomycin Trough 05/22/19 05/22/19 05/22/19 03:54 06:25 06:25 WBC RBC 3.22 L Hgb 8.6 L Hct 27.0 L MCV MCH 27 L MCHC RDW 17.5 H Lymph % (Auto) [place] % (Auto) 16.2 H Eos % (Auto) 10.8 H Lymph # [place] # 1.3 H Eos # 0.9 H Seg Neutrophils % Seg Neuts % (Manual) Lymphocytes % (Manual) 10.0 L Monocytes % (Manual) 13.0 H Eosinophils % (Manual) 8.0 H Nucleated RBC % Seg Neutrophils # Seg Neutrophils # Man Lymphocytes # (Manual) 0.9 L Monocytes # (Manual) 1.1 H Eosinophils # (Manual) 0.7 H PT INR APTT POC ABG pH 7.313 L ABG pH POC ABG pCO2 55.0 H POC ABG pO2 ABG pO2 ABG HCO3 ABG O2 Saturation ABG Base Excess ABG Hemoglobin Oxyhemoglobin Sodium 135 L Potassium Chloride 94.3 L Carbon Dioxide BUN 117 H Creatinine 7.8 H Glucose POC Glucose Uric Acid Calcium 8.2 L Phosphorus Magnesium AST ALT Total Creatine Kinase CK-MB (CK-2) Troponin T NT-Pro-B Natriuret Pep Total Protein Albumin Triglycerides HDL Cholesterol Urine WBC (Auto) Urine Creatinine Urine Total Protein Vancomycin Trough 05/23/19 05/24/19 05/24/19 05:21 05:00 05:00 WBC RBC 3.18 L Hgb 8.5 L Hct 26.7 L MCV MCH 27 L MCHC RDW 17.9 H Lymph % (Auto) [place] % (Auto) Eos % (Auto) Lymph # [place] # Eos # Seg Neutrophils % Seg Neuts % (Manual) Lymphocytes % (Manual) Monocytes % (Manual) Eosinophils % (Manual) Nucleated RBC % Seg Neutrophils # Seg Neutrophils # Man Lymphocytes # (Manual) Monocytes # (Manual) Eosinophils # (Manual) PT INR APTT POC ABG pH ABG pH POC ABG pCO2 49.7 H POC ABG pO2 73 L ABG pO2 ABG HCO3 ABG O2 Saturation ABG Base Excess ABG Hemoglobin Oxyhemoglobin Sodium Potassium Chloride 95.7 L Carbon Dioxide BUN 97 H Creatinine 6.5 H Glucose POC Glucose Uric Acid Calcium 8.0 L Phosphorus Magnesium AST ALT Total Creatine Kinase CK-MB (CK-2) Troponin T NT-Pro-B Natriuret Pep Total Protein Albumin Triglycerides HDL Cholesterol Urine WBC (Auto) Urine Creatinine Urine Total Protein Vancomycin Trough 05/24/19 05/25/19 05/25/19 06:17 04:22 15:45 WBC RBC 2.98 L Hgb 8.1 L Hct 24.9 L MCV MCH 27 L MCHC RDW 17.8 H Lymph % (Auto) [place] % (Auto) Eos % (Auto) Lymph # [place] # Eos # Seg Neutrophils % Seg Neuts % (Manual) Lymphocytes % (Manual) Monocytes % (Manual) Eosinophils % (Manual) Nucleated RBC % Seg Neutrophils # Seg Neutrophils # Man Lymphocytes # (Manual) Monocytes # (Manual) Eosinophils # (Manual) PT INR APTT POC ABG pH 7.330 L 7.313 L ABG pH POC ABG pCO2 52.5 H 51.1 H POC ABG pO2 77 L ABG pO2 ABG HCO3 ABG O2 Saturation ABG Base Excess ABG Hemoglobin Oxyhemoglobin Sodium Potassium Chloride Carbon Dioxide BUN Creatinine Glucose POC Glucose Uric Acid Calcium Phosphorus Magnesium AST ALT Total Creatine Kinase CK-MB (CK-2) Troponin T NT-Pro-B Natriuret Pep Total Protein Albumin Triglycerides HDL Cholesterol Urine WBC (Auto) Urine Creatinine Urine Total Protein Vancomycin Trough 05/25/19 05/26/19 05/26/19 15:45 04:13 05:00 WBC RBC 3.10 L Hgb 8.4 L Hct 26.0 L MCV MCH 27 L MCHC RDW 17.4 H Lymph % (Auto) [place] % (Auto) Eos % (Auto) Lymph # [place] # Eos # Seg Neutrophils % Seg Neuts % (Manual) Lymphocytes % (Manual) Monocytes % (Manual) Eosinophils % (Manual) Nucleated RBC % Seg Neutrophils # Seg Neutrophils # Man Lymphocytes # (Manual) Monocytes # (Manual) Eosinophils # (Manual) PT INR APTT POC ABG pH 7.295 L ABG pH POC ABG pCO2 56.5 H POC ABG pO2 63 L ABG pO2 ABG HCO3 ABG O2 Saturation ABG Base Excess ABG Hemoglobin Oxyhemoglobin Sodium 136 L Potassium Chloride 96.8 L Carbon Dioxide BUN 83 H Creatinine 5.9 H Glucose POC Glucose Uric Acid Calcium 7.6 L Phosphorus Magnesium AST ALT Total Creatine Kinase CK-MB (CK-2) Troponin T NT-Pro-B Natriuret Pep Total Protein Albumin Triglycerides HDL Cholesterol Urine WBC (Auto) Urine Creatinine Urine Total Protein Vancomycin Trough 05/26/19 05/27/19 05/28/19 05:00 04:48 04:47 WBC RBC Hgb Hct MCV MCH MCHC RDW Lymph % (Auto) [place] % (Auto) Eos % (Auto) Lymph # [place] # Eos # Seg Neutrophils % Seg Neuts % (Manual) Lymphocytes % (Manual) Monocytes % (Manual) Eosinophils % (Manual) Nucleated RBC % Seg Neutrophils # Seg Neutrophils # Man Lymphocytes # (Manual) Monocytes # (Manual) Eosinophils # (Manual) PT INR APTT POC ABG pH 7.323 L ABG pH 7.284 L POC ABG pCO2 56.2 H POC ABG pO2 ABG pO2 71.6 L ABG HCO3 ABG O2 Saturation 92.0 L ABG Base Excess ABG Hemoglobin 7.7 L Oxyhemoglobin 89.9 L Sodium 136 L Potassium Chloride 95.3 L Carbon Dioxide BUN 96 H Creatinine 6.5 H Glucose 108 H POC Glucose Uric Acid Calcium 7.6 L Phosphorus Magnesium AST ALT Total Creatine Kinase CK-MB (CK-2) Troponin T NT-Pro-B Natriuret Pep Total Protein Albumin Triglycerides HDL Cholesterol Urine WBC (Auto) Urine Creatinine Urine Total Protein Vancomycin Trough 05/28/19 05/29/19 05/29/19 12:30 12:47 23:44 WBC RBC Hgb Hct MCV MCH MCHC RDW Lymph % (Auto) [place] % (Auto) Eos % (Auto) Lymph # [place] # Eos # Seg Neutrophils % Seg Neuts % (Manual) Lymphocytes % (Manual) Monocytes % (Manual) Eosinophils % (Manual) Nucleated RBC % Seg Neutrophils # Seg Neutrophils # Man Lymphocytes # (Manual) Monocytes # (Manual) Eosinophils # (Manual) PT INR APTT POC ABG pH ABG pH POC ABG pCO2 POC ABG pO2 ABG pO2 ABG HCO3 ABG O2 Saturation ABG Base Excess ABG Hemoglobin Oxyhemoglobin Sodium 135 L Potassium Chloride 95.3 L Carbon Dioxide BUN 82 H Creatinine 6.0 H Glucose POC Glucose 136 H 159 H Uric Acid Calcium 7.5 L Phosphorus Magnesium AST ALT Total Creatine Kinase CK-MB (CK-2) Troponin T NT-Pro-B Natriuret Pep Total Protein Albumin Triglycerides HDL Cholesterol Urine WBC (Auto) Urine Creatinine Urine Total Protein Vancomycin Trough 05/30/19 05/30/19 05/30/19 04:30 05:38 12:00 WBC RBC 3.01 L Hgb 8.2 L Hct 25.3 L MCV MCH 27 L MCHC RDW 17.5 H Lymph % (Auto) [place] % (Auto) Eos % (Auto) Lymph # [place] # Eos # Seg Neutrophils % Seg Neuts % (Manual) 80.0 H Lymphocytes % (Manual) 10.0 L Monocytes % (Manual) Eosinophils % (Manual) Nucleated RBC % Seg Neutrophils # Seg Neutrophils # Man 8.0 H Lymphocytes # (Manual) 1.0 L Monocytes # (Manual) Eosinophils # (Manual) PT INR APTT POC ABG pH ABG pH POC ABG pCO2 POC ABG pO2 73 L ABG pO2 ABG HCO3 ABG O2 Saturation ABG Base Excess ABG Hemoglobin Oxyhemoglobin Sodium Potassium Chloride Carbon Dioxide BUN Creatinine Glucose POC Glucose 166 H Uric Acid Calcium Phosphorus Magnesium AST ALT Total Creatine Kinase CK-MB (CK-2) Troponin T NT-Pro-B Natriuret Pep Total Protein Albumin Triglycerides HDL Cholesterol Urine WBC (Auto) Urine Creatinine Urine Total Protein Vancomycin Trough 05/30/19 05/31/19 05/31/19 23:45 04:07 13:04 WBC 14.3 H RBC 2.88 L Hgb 7.7 L Hct 23.9 L MCV 83 L MCH 27 L MCHC RDW 17.8 H Lymph % (Auto) [place] % (Auto) Eos % (Auto) Lymph # [place] # Eos # Seg Neutrophils % Seg Neuts % (Manual) 83.0 H Lymphocytes % (Manual) 11.0 L Monocytes % (Manual) Eosinophils % (Manual) Nucleated RBC % Seg Neutrophils # Seg Neutrophils # Man 11.9 H Lymphocytes # (Manual) Monocytes # (Manual) 0.9 H Eosinophils # (Manual) PT INR APTT POC ABG pH ABG pH POC ABG pCO2 47.4 H POC ABG pO2 ABG pO2 ABG HCO3 ABG O2 Saturation ABG Base Excess ABG Hemoglobin Oxyhemoglobin Sodium Potassium Chloride Carbon Dioxide BUN Creatinine Glucose POC Glucose 209 H Uric Acid Calcium Phosphorus Magnesium AST ALT Total Creatine Kinase CK-MB (CK-2) Troponin T NT-Pro-B Natriuret Pep Total Protein Albumin Triglycerides HDL Cholesterol Urine WBC (Auto) Urine Creatinine Urine Total Protein Vancomycin Trough 05/31/19 05/31/19 06/01/19 13:04 16:42 00:15 WBC RBC Hgb Hct MCV MCH MCHC RDW Lymph % (Auto) [place] % (Auto) Eos % (Auto) Lymph # [place] # Eos # Seg Neutrophils % Seg Neuts % (Manual) Lymphocytes % (Manual) Monocytes % (Manual) Eosinophils % (Manual) Nucleated RBC % Seg Neutrophils # Seg Neutrophils # Man Lymphocytes # (Manual) Monocytes # (Manual) Eosinophils # (Manual) PT INR APTT POC ABG pH ABG pH POC ABG pCO2 POC ABG pO2 ABG pO2 ABG HCO3 ABG O2 Saturation ABG Base Excess ABG Hemoglobin Oxyhemoglobin Sodium 129 L Potassium Chloride 88.6 L Carbon Dioxide 19 L BUN 117 H Creatinine 6.7 H Glucose 205 H POC Glucose 228 H 223 H Uric Acid Calcium 7.4 L Phosphorus 7.40 H Magnesium AST 58 H ALT 149 H Total Creatine Kinase CK-MB (CK-2) Troponin T NT-Pro-B Natriuret Pep Total Protein 6.0 L Albumin 2.5 L Triglycerides HDL Cholesterol Urine WBC (Auto) Urine Creatinine Urine Total Protein Vancomycin Trough 06/01/19 06/01/19 06/01/19 04:33 05:27 12:31 WBC RBC Hgb Hct MCV MCH MCHC RDW Lymph % (Auto) [place] % (Auto) Eos % (Auto) Lymph # [place] # Eos # Seg Neutrophils % Seg Neuts % (Manual) Lymphocytes % (Manual) Monocytes % (Manual) Eosinophils % (Manual) Nucleated RBC % Seg Neutrophils # Seg Neutrophils # Man Lymphocytes # (Manual) Monocytes # (Manual) Eosinophils # (Manual) PT INR APTT POC ABG pH ABG pH POC ABG pCO2 POC ABG pO2 ABG pO2 56.9 L ABG HCO3 ABG O2 Saturation 85.9 L ABG Base Excess ABG Hemoglobin 8.1 L Oxyhemoglobin 83.6 L Sodium Potassium Chloride Carbon Dioxide BUN Creatinine Glucose POC Glucose 183 H 217 H Uric Acid Calcium Phosphorus Magnesium AST ALT Total Creatine Kinase CK-MB (CK-2) Troponin T NT-Pro-B Natriuret Pep Total Protein Albumin Triglycerides HDL Cholesterol Urine WBC (Auto) Urine Creatinine Urine Total Protein Vancomycin Trough 06/01/19 06/02/19 06/02/19 18:20 00:00 05:33 WBC RBC Hgb Hct MCV MCH MCHC RDW Lymph % (Auto) [place] % (Auto) Eos % (Auto) Lymph # [place] # Eos # Seg Neutrophils % Seg Neuts % (Manual) Lymphocytes % (Manual) Monocytes % (Manual) Eosinophils % (Manual) Nucleated RBC % Seg Neutrophils # Seg Neutrophils # Man Lymphocytes # (Manual) Monocytes # (Manual) Eosinophils # (Manual) PT INR APTT POC ABG pH ABG pH POC ABG pCO2 POC ABG pO2 ABG pO2 ABG HCO3 ABG O2 Saturation ABG Base Excess ABG Hemoglobin Oxyhemoglobin Sodium Potassium Chloride Carbon Dioxide BUN Creatinine Glucose POC Glucose 265 H 279 H 259 H Uric Acid Calcium Phosphorus Magnesium AST ALT Total Creatine Kinase CK-MB (CK-2) Troponin T NT-Pro-B Natriuret Pep Total Protein Albumin Triglycerides HDL Cholesterol Urine WBC (Auto) Urine Creatinine Urine Total Protein Vancomycin Trough 06/02/19 06/02/19 06/02/19 11:06 11:06 11:42 WBC 13.1 H RBC 2.92 L Hgb 7.9 L Hct 24.4 L MCV MCH 27 L MCHC RDW 17.4 H Lymph % (Auto) [place] % (Auto) Eos % (Auto) Lymph # [place] # Eos # Seg Neutrophils % Seg Neuts % (Manual) 78.0 H Lymphocytes % (Manual) 12.0 L Monocytes % (Manual) 10.0 H Eosinophils % (Manual) Nucleated RBC % Seg Neutrophils # Seg Neutrophils # Man 10.2 H Lymphocytes # (Manual) Monocytes # (Manual) 1.3 H Eosinophils # (Manual) PT INR APTT POC ABG pH ABG pH POC ABG pCO2 POC ABG pO2 ABG pO2 ABG HCO3 ABG O2 Saturation ABG Base Excess ABG Hemoglobin Oxyhemoglobin Sodium 135 L Potassium Chloride 94.7 L Carbon Dioxide 21 L BUN 107 H Creatinine 4.5 H Glucose 286 H POC Glucose 263 H Uric Acid Calcium 7.9 L Phosphorus 6.30 H Magnesium AST ALT 104 H Total Creatine Kinase CK-MB (CK-2) Troponin T NT-Pro-B Natriuret Pep Total Protein 6.0 L Albumin 2.7 L Triglycerides HDL Cholesterol Urine WBC (Auto) Urine Creatinine Urine Total Protein Vancomycin Trough 06/02/19 06/02/19 06/03/19 18:17 23:55 05:30 WBC RBC Hgb Hct MCV MCH MCHC RDW Lymph % (Auto) [place] % (Auto) Eos % (Auto) Lymph # [place] # Eos # Seg Neutrophils % Seg Neuts % (Manual) Lymphocytes % (Manual) Monocytes % (Manual) Eosinophils % (Manual) Nucleated RBC % Seg Neutrophils # Seg Neutrophils # Man Lymphocytes # (Manual) Monocytes # (Manual) Eosinophils # (Manual) PT INR APTT POC ABG pH ABG pH POC ABG pCO2 POC ABG pO2 ABG pO2 ABG HCO3 ABG O2 Saturation ABG Base Excess ABG Hemoglobin Oxyhemoglobin Sodium Potassium Chloride 95.1 L Carbon Dioxide 21 L BUN 119 H Creatinine 4.1 H Glucose 330 H POC Glucose 276 H 244 H Uric Acid Calcium 8.1 L Phosphorus Magnesium AST ALT 98 H Total Creatine Kinase CK-MB (CK-2) Troponin T NT-Pro-B Natriuret Pep Total Protein 5.8 L Albumin 2.8 L Triglycerides HDL Cholesterol Urine WBC (Auto) Urine Creatinine Urine Total Protein Vancomycin Trough 06/03/19 06/03/19 06/03/19 05:30 06:04 09:42 WBC 12.8 H RBC 3.01 L Hgb 8.2 L Hct 25.4 L MCV MCH 27 L MCHC RDW 17.5 H Lymph % (Auto) [place] % (Auto) Eos % (Auto) Lymph # [place] # Eos # Seg Neutrophils % Seg Neuts % (Manual) 78.0 H Lymphocytes % (Manual) 10.0 L Monocytes % (Manual) 12.0 H Eosinophils % (Manual) Nucleated RBC % Seg Neutrophils # Seg Neutrophils # Man 10.0 H Lymphocytes # (Manual) Monocytes # (Manual) 1.5 H Eosinophils # (Manual) PT INR APTT POC ABG pH ABG pH POC ABG pCO2 POC ABG pO2 ABG pO2 ABG HCO3 ABG O2 Saturation ABG Base Excess ABG Hemoglobin Oxyhemoglobin Sodium Potassium Chloride Carbon Dioxide BUN 106 H Creatinine Glucose POC Glucose 254 H Uric Acid Calcium Phosphorus Magnesium AST ALT Total Creatine Kinase CK-MB (CK-2) Troponin T NT-Pro-B Natriuret Pep Total Protein Albumin Triglycerides HDL Cholesterol Urine WBC (Auto) Urine Creatinine Urine Total Protein Vancomycin Trough 06/03/19 06/03/19 06/03/19 12:52 17:25 23:37 WBC RBC Hgb Hct MCV MCH MCHC RDW Lymph % (Auto) [place] % (Auto) Eos % (Auto) Lymph # [place] # Eos # Seg Neutrophils % Seg Neuts % (Manual) Lymphocytes % (Manual) Monocytes % (Manual) Eosinophils % (Manual) Nucleated RBC % Seg Neutrophils # Seg Neutrophils # Man Lymphocytes # (Manual) Monocytes # (Manual) Eosinophils # (Manual) PT INR APTT POC ABG pH ABG pH POC ABG pCO2 POC ABG pO2 ABG pO2 ABG HCO3 ABG O2 Saturation ABG Base Excess ABG Hemoglobin Oxyhemoglobin Sodium Potassium Chloride Carbon Dioxide BUN Creatinine Glucose POC Glucose 274 H 285 H 310 H Uric Acid Calcium Phosphorus Magnesium AST ALT Total Creatine Kinase CK-MB (CK-2) Troponin T NT-Pro-B Natriuret Pep Total Protein Albumin Triglycerides HDL Cholesterol Urine WBC (Auto) Urine Creatinine Urine Total Protein Vancomycin Trough 06/04/19 06/04/19 06/04/19 04:57 05:03 11:50 WBC RBC Hgb Hct MCV MCH MCHC RDW Lymph % (Auto) [place] % (Auto) Eos % (Auto) Lymph # [place] # Eos # Seg Neutrophils % Seg Neuts % (Manual) Lymphocytes % (Manual) Monocytes % (Manual) Eosinophils % (Manual) Nucleated RBC % Seg Neutrophils # Seg Neutrophils # Man Lymphocytes # (Manual) Monocytes # (Manual) Eosinophils # (Manual) PT INR APTT POC ABG pH 7.488 H ABG pH POC ABG pCO2 POC ABG pO2 ABG pO2 ABG HCO3 ABG O2 Saturation ABG Base Excess ABG Hemoglobin Oxyhemoglobin Sodium Potassium Chloride Carbon Dioxide BUN Creatinine Glucose POC Glucose 275 H 279 H Uric Acid Calcium Phosphorus Magnesium AST ALT Total Creatine Kinase CK-MB (CK-2) Troponin T NT-Pro-B Natriuret Pep Total Protein Albumin Triglycerides HDL Cholesterol Urine WBC (Auto) Urine Creatinine Urine Total Protein Vancomycin Trough 06/04/19 06/04/19 06/04/19 18:32 22:03 23:55 WBC RBC Hgb Hct MCV MCH MCHC RDW Lymph % (Auto) [place] % (Auto) Eos % (Auto) Lymph # [place] # Eos # Seg Neutrophils % Seg Neuts % (Manual) Lymphocytes % (Manual) Monocytes % (Manual) Eosinophils % (Manual) Nucleated RBC % Seg Neutrophils # Seg Neutrophils # Man Lymphocytes # (Manual) Monocytes # (Manual) Eosinophils # (Manual) PT INR APTT POC ABG pH ABG pH POC ABG pCO2 POC ABG pO2 ABG pO2 ABG HCO3 ABG O2 Saturation ABG Base Excess ABG Hemoglobin Oxyhemoglobin Sodium Potassium Chloride Carbon Dioxide BUN Creatinine Glucose POC Glucose 267 H 307 H 292 H Uric Acid Calcium Phosphorus Magnesium AST ALT Total Creatine Kinase CK-MB (CK-2) Troponin T NT-Pro-B Natriuret Pep Total Protein Albumin Triglycerides HDL Cholesterol Urine WBC (Auto) Urine Creatinine Urine Total Protein Vancomycin Trough 06/05/19 06/05/19 06/05/19 03:52 06:41 12:29 WBC RBC Hgb Hct MCV MCH MCHC RDW Lymph % (Auto) [place] % (Auto) Eos % (Auto) Lymph # [place] # Eos # Seg Neutrophils % Seg Neuts % (Manual) Lymphocytes % (Manual) Monocytes % (Manual) Eosinophils % (Manual) Nucleated RBC % Seg Neutrophils # Seg Neutrophils # Man Lymphocytes # (Manual) Monocytes # (Manual) Eosinophils # (Manual) PT INR APTT POC ABG pH 7.462 H ABG pH POC ABG pCO2 POC ABG pO2 ABG pO2 ABG HCO3 ABG O2 Saturation ABG Base Excess ABG Hemoglobin Oxyhemoglobin Sodium Potassium Chloride Carbon Dioxide BUN Creatinine Glucose POC Glucose 369 H 265 H Uric Acid Calcium Phosphorus Magnesium AST ALT Total Creatine Kinase CK-MB (CK-2) Troponin T NT-Pro-B Natriuret Pep Total Protein Albumin Triglycerides HDL Cholesterol Urine WBC (Auto) Urine Creatinine Urine Total Protein Vancomycin Trough 06/05/19 06/05/19 06/05/19 18:20 21:42 23:21 WBC RBC Hgb Hct MCV MCH MCHC RDW Lymph % (Auto) [place] % (Auto) Eos % (Auto) Lymph # [place] # Eos # Seg Neutrophils % Seg Neuts % (Manual) Lymphocytes % (Manual) Monocytes % (Manual) Eosinophils % (Manual) Nucleated RBC % Seg Neutrophils # Seg Neutrophils # Man Lymphocytes # (Manual) Monocytes # (Manual) Eosinophils # (Manual) PT INR APTT POC ABG pH ABG pH POC ABG pCO2 POC ABG pO2 ABG pO2 ABG HCO3 ABG O2 Saturation ABG Base Excess ABG Hemoglobin Oxyhemoglobin Sodium Potassium Chloride Carbon Dioxide BUN Creatinine Glucose POC Glucose 249 H 246 H 274 H Uric Acid Calcium Phosphorus Magnesium AST ALT Total Creatine Kinase CK-MB (CK-2) Troponin T NT-Pro-B Natriuret Pep Total Protein Albumin Triglycerides HDL Cholesterol Urine WBC (Auto) Urine Creatinine Urine Total Protein Vancomycin Trough 06/06/19 06/06/19 06/06/19 04:00 05:49 11:34 WBC 18.1 H RBC 3.53 L Hgb 9.5 L Hct 30.3 L MCV MCH 27 L MCHC 31 L RDW 19.5 H Lymph % (Auto) [place] % (Auto) Eos % (Auto) Lymph # [place] # Eos # Seg Neutrophils % Seg Neuts % (Manual) 87.0 H Lymphocytes % (Manual) 3.0 L Monocytes % (Manual) 8.0 H Eosinophils % (Manual) Nucleated RBC % Seg Neutrophils # Seg Neutrophils # Man 15.7 H Lymphocytes # (Manual) 0.5 L Monocytes # (Manual) 1.4 H Eosinophils # (Manual) PT INR APTT POC ABG pH ABG pH 7.472 H POC ABG pCO2 POC ABG pO2 ABG pO2 76.4 L ABG HCO3 28.1 H ABG O2 Saturation ABG Base Excess 4.3 H ABG Hemoglobin 12.5 L Oxyhemoglobin 93.8 L Sodium Potassium Chloride Carbon Dioxide BUN Creatinine Glucose POC Glucose 340 H Uric Acid Calcium Phosphorus Magnesium AST ALT Total Creatine Kinase CK-MB (CK-2) Troponin T NT-Pro-B Natriuret Pep Total Protein Albumin Triglycerides HDL Cholesterol Urine WBC (Auto) Urine Creatinine Urine Total Protein Vancomycin Trough 06/06/19 06/06/19 06/06/19 11:34 12:11 18:10 WBC RBC Hgb Hct MCV MCH MCHC RDW Lymph % (Auto) [place] % (Auto) Eos % (Auto) Lymph # [place] # Eos # Seg Neutrophils % Seg Neuts % (Manual) Lymphocytes % (Manual) Monocytes % (Manual) Eosinophils % (Manual) Nucleated RBC % Seg Neutrophils # Seg Neutrophils # Man Lymphocytes # (Manual) Monocytes # (Manual) Eosinophils # (Manual) PT INR APTT POC ABG pH ABG pH POC ABG pCO2 POC ABG pO2 ABG pO2 ABG HCO3 ABG O2 Saturation ABG Base Excess ABG Hemoglobin Oxyhemoglobin Sodium Potassium Chloride Carbon Dioxide BUN 70 H Creatinine Glucose 310 H POC Glucose 283 H 301 H Uric Acid Calcium 8.3 L Phosphorus 4.60 H Magnesium AST ALT 75 H Total Creatine Kinase CK-MB (CK-2) Troponin T NT-Pro-B Natriuret Pep Total Protein 5.6 L Albumin 2.9 L Triglycerides HDL Cholesterol Urine WBC (Auto) Urine Creatinine Urine Total Protein Vancomycin Trough 06/06/19 06/06/19 06/07/19 22:21 23:16 04:30 WBC RBC Hgb Hct MCV MCH MCHC RDW Lymph % (Auto) [place] % (Auto) Eos % (Auto) Lymph # [place] # Eos # Seg Neutrophils % Seg Neuts % (Manual) Lymphocytes % (Manual) Monocytes % (Manual) Eosinophils % (Manual) Nucleated RBC % Seg Neutrophils # Seg Neutrophils # Man Lymphocytes # (Manual) Monocytes # (Manual) Eosinophils # (Manual) PT INR APTT POC ABG pH ABG pH 7.480 H POC ABG pCO2 POC ABG pO2 ABG pO2 77.0 L ABG HCO3 27.2 H ABG O2 Saturation ABG Base Excess 3.5 H ABG Hemoglobin 7.1 L Oxyhemoglobin 94.2 L Sodium Potassium Chloride Carbon Dioxide BUN Creatinine Glucose POC Glucose 289 H 343 H Uric Acid Calcium Phosphorus Magnesium AST ALT Total Creatine Kinase CK-MB (CK-2) Troponin T NT-Pro-B Natriuret Pep Total Protein Albumin Triglycerides HDL Cholesterol Urine WBC (Auto) Urine Creatinine Urine Total Protein Vancomycin Trough 06/07/19 06/07/19 06/07/19 05:15 12:52 18:41 WBC RBC Hgb Hct MCV MCH MCHC RDW Lymph % (Auto) [place] % (Auto) Eos % (Auto) Lymph # [place] # Eos # Seg Neutrophils % Seg Neuts % (Manual) Lymphocytes % (Manual) Monocytes % (Manual) Eosinophils % (Manual) Nucleated RBC % Seg Neutrophils # Seg Neutrophils # Man Lymphocytes # (Manual) Monocytes # (Manual) Eosinophils # (Manual) PT INR APTT POC ABG pH ABG pH POC ABG pCO2 POC ABG pO2 ABG pO2 ABG HCO3 ABG O2 Saturation ABG Base Excess ABG Hemoglobin Oxyhemoglobin Sodium Potassium Chloride Carbon Dioxide BUN Creatinine Glucose POC Glucose 307 H 226 H 187 H Uric Acid Calcium Phosphorus Magnesium AST ALT Total Creatine Kinase CK-MB (CK-2) Troponin T NT-Pro-B Natriuret Pep Total Protein Albumin Triglycerides HDL Cholesterol Urine WBC (Auto) Urine Creatinine Urine Total Protein Vancomycin Trough 06/07/19 06/07/19 06/08/19 22:54 23:46 04:20 WBC 16.0 H RBC Hgb 10.0 L Hct 32.1 L MCV MCH 27 L MCHC 31 L RDW 19.4 H Lymph % (Auto) [place] % (Auto) Eos % (Auto) Lymph # [place] # Eos # Seg Neutrophils % Seg Neuts % (Manual) 87.0 H Lymphocytes % (Manual) 7.0 L Monocytes % (Manual) Eosinophils % (Manual) Nucleated RBC % Seg Neutrophils # Seg Neutrophils # Man 13.9 H Lymphocytes # (Manual) 1.1 L Monocytes # (Manual) 1.0 H Eosinophils # (Manual) PT INR APTT POC ABG pH ABG pH POC ABG pCO2 POC ABG pO2 ABG pO2 ABG HCO3 ABG O2 Saturation ABG Base Excess ABG Hemoglobin Oxyhemoglobin Sodium Potassium Chloride Carbon Dioxide BUN Creatinine Glucose POC Glucose 199 H 172 H Uric Acid Calcium Phosphorus Magnesium AST ALT Total Creatine Kinase CK-MB (CK-2) Troponin T NT-Pro-B Natriuret Pep Total Protein Albumin Triglycerides HDL Cholesterol Urine WBC (Auto) Urine Creatinine Urine Total Protein Vancomycin Trough 06/08/19 06/08/19 04:20 05:15 WBC RBC Hgb Hct MCV MCH MCHC RDW Lymph % (Auto) [place] % (Auto) Eos % (Auto) Lymph # [place] # Eos # Seg Neutrophils % Seg Neuts % (Manual) Lymphocytes % (Manual) Monocytes % (Manual) Eosinophils % (Manual) Nucleated RBC % Seg Neutrophils # Seg Neutrophils # Man Lymphocytes # (Manual) Monocytes # (Manual) Eosinophils # (Manual) PT INR APTT POC ABG pH ABG pH POC ABG pCO2 POC ABG pO2 ABG pO2 ABG HCO3 ABG O2 Saturation ABG Base Excess ABG Hemoglobin Oxyhemoglobin Sodium 146 H D Potassium Chloride Carbon Dioxide BUN 77 H Creatinine Glucose 205 H POC Glucose 209 H Uric Acid Calcium Phosphorus Magnesium AST ALT 66 H Total Creatine Kinase CK-MB (CK-2) Troponin T NT-Pro-B Natriuret Pep Total Protein 5.5 L Albumin 2.9 L Triglycerides HDL Cholesterol Urine WBC (Auto) Urine Creatinine Urine Total Protein Vancomycin Trough
[2019-06-08] MEDS: ENOXAPARIN 30 MG/0.3 ML INJ SUB-Q SCH (09:21)
[2019-06-08] MEDS: hydrALAZINE 20 MG/1 ML INJ IV PRN ×3 (09:21→21:08)
[2019-06-08] MEDS: FAMOTIDINE 20 MG TAB PO SCH (10:00)
[2019-06-08] MEDS: MINOXIDIL 2.5 MG TAB PO SCH ×2 (10:00→22:19)
[2019-06-08] MEDS: levETIRAcetam 500 MG/5 ML ORAL LIQD PO SCH ×2 (10:00→22:18)
[2019-06-08] MEDS ORDERED: SODIUM CHLORIDE 0.9% 100 ML IV PRN (11:42)
[2019-06-08] MEDS: methylPREDNISolone Sod Succinate 40 MG/1 ML INJ IV SCH ×2 (13:44→21:09)
--- NOTE | 2019-06-08 17:17 | Progress Note ---
Assessment and Plan # Acute kidney injury on HD: creatinine had worsened, potentially from vancomycin toxicity, now HD dependent. Initially with suspected tubular injury in setting of sepsis, respiratory failure, hypotension. He is making urine now so hopeful for renal recovery; will follow labs/urine output for renal recovery - plan to continue HD //Sa or prn; seen on HD today. Will trend labs and urine output and hold off HD if able - continue to assess for renal recovery with strict Is/Os - continue supportive measures, appreciate pulm and ID input - avoid nephrotoxins - appreciate vascular assistance with vas-cath placement - daily labs # HTN: BP above goal but reasonable, continue current management. Will consider diuretic challenge if labs are relatively stable # Anemia: hemoglobin 9.5, pRBC transfusion prn. Continue ESAs with HD # Encephalopathy, seizure disorder, hypoxic respiratory failure, fevers: ID and pulm following, improving We'll continue to follow and make recommendation from renal standpoint for this critically ill patient; we appreciate the opportunity to assist in his care. Subjective Date of service: 06/08/19 Principal diagnosis: HF; acute hypoxemic resp failure, SIRS, CARLA Interval history: Seen on HD today, more alert than prior. Tolerating HD well, reviewed dialysis settings with dialysis nurse at bedside. Objective - Exam Narrative Exam: General: No acute distress. Alert but not oriented. Obese HEENT: NC/AT Neck: Supple Chest: decreased breath sounds Heart: Regular rate and rhythm Abdomen: Soft nontender Extremity: no edema Psych: no agitation Neuro: does not follow commands Derm: No petechial rash - Vital Signs Vital signs: Vital Signs - 12hr 06/08/19 06/08/19 06/08/19 05:30 06:00 06:30 Temperature Pulse Rate 93 H 95 H 91 H Pulse Rate [ From Monitor] Respiratory 26 H 26 H 27 H Rate Blood Pressure 159/80 165/70 175/77 O2 Sat by Pulse 99 96 97 Oximetry O2 Sat by Pulse Oximetry [ Anterior Bilateral Throughout] 06/08/19 06/08/19 06/08/19 07:00 07:30 08:00 Temperature 97.8 F Pulse Rate 87 89 88 Pulse Rate [ 88 From Monitor] Respiratory 22 16 28 H Rate Blood Pressure 166/91 171/100 177/107 O2 Sat by Pulse 96 94 95 Oximetry O2 Sat by Pulse Oximetry [ Anterior Bilateral Throughout] 06/08/19 06/08/19 06/08/19 08:16 08:20 08:30 Temperature 97.8 F Pulse Rate 85 85 Pulse Rate [ From Monitor] Respiratory 17 25 H Rate Blood Pressure 181/101 181/101 O2 Sat by Pulse 98 96 Oximetry O2 Sat by Pulse 99 Oximetry [ Anterior Bilateral Throughout] 06/08/19 06/08/19 06/08/19 08:45 09:00 09:15 Temperature Pulse Rate 84 84 90 Pulse Rate [ From Monitor] Respiratory 24 Rate Blood Pressure 182/94 190/107 177/100 O2 Sat by Pulse 96 Oximetry O2 Sat by Pulse Oximetry [ Anterior Bilateral Throughout] 06/08/19 06/08/19 06/08/19 09:21 09:30 09:45 Temperature Pulse Rate 86 85 80 Pulse Rate [ From Monitor] Respiratory 18 Rate Blood Pressure 165/104 184/100 182/97 O2 Sat by Pulse 96 Oximetry O2 Sat by Pulse Oximetry [ Anterior Bilateral Throughout] 06/08/19 06/08/19 06/08/19 10:00 10:15 10:30 Temperature Pulse Rate 84 87 85 Pulse Rate [ From Monitor] Respiratory 18 12 Rate Blood Pressure 181/103 186/99 196/98 O2 Sat by Pulse 97 94 Oximetry O2 Sat by Pulse Oximetry [ Anterior Bilateral Throughout] 06/08/19 06/08/19 06/08/19 10:45 11:00 11:02 Temperature Pulse Rate 87 88 92 H Pulse Rate [ From Monitor] Respiratory 16 Rate Blood Pressure 180/93 178/101 178/101 O2 Sat by Pulse 94 Oximetry O2 Sat by Pulse Oximetry [ Anterior Bilateral Throughout] 06/08/19 06/08/19 06/08/19 11:15 11:30 11:31 Temperature Pulse Rate 95 H 95 H 103 H Pulse Rate [ From Monitor] Respiratory 20 Rate Blood Pressure 168/99 198/99 198/99 O2 Sat by Pulse 91 Oximetry O2 Sat by Pulse Oximetry [ Anterior Bilateral Throughout] 06/08/19 06/08/19 06/08/19 11:45 12:00 12:01 Temperature 98.0 F Pulse Rate 88 91 H 90 Pulse Rate [ 94 H From Monitor] Respiratory 17 Rate Blood Pressure 153/104 160/96 160/96 O2 Sat by Pulse 92 Oximetry O2 Sat by Pulse Oximetry [ Anterior Bilateral Throughout] 06/08/19 06/08/19 06/08/19 12:20 12:30 13:00 Temperature 98.0 F Pulse Rate 94 H 88 95 H Pulse Rate [ From Monitor] Respiratory 18 17 15 Rate Blood Pressure 167/99 167/91 168/98 O2 Sat by Pulse 93 89 Oximetry O2 Sat by Pulse 95 Oximetry [ Anterior Bilateral Throughout] 06/08/19 06/08/19 06/08/19 13:30 14:00 14:30 Temperature Pulse Rate 91 H 93 H 92 H Pulse Rate [ From Monitor] Respiratory 22 15 22 Rate Blood Pressure 166/91 170/98 188/107 O2 Sat by Pulse 86 91 90 Oximetry O2 Sat by Pulse Oximetry [ Anterior Bilateral Throughout] 06/08/19 06/08/19 06/08/19 15:00 15:30 16:00 Temperature 98.4 F Pulse Rate 89 90 97 H Pulse Rate [ 94 H From Monitor] Respiratory 16 24 26 H Rate Blood Pressure 177/103 184/91 184/97 O2 Sat by Pulse 91 89 86 Oximetry O2 Sat by Pulse Oximetry [ Anterior Bilateral Throughout] - Lab 06/08/19 04:20 06/08/19 04:20 Most recent lab results ABG pH 7.480 pH Units (7.350-7.450) H 06/07/19 04:30 ABG pCO2 37.4 mm Hg 06/07/19 04:30 ABG pO2 77.0 mm Hg (80.0-90.0) L 06/07/19 04:30 ABG HCO3 27.2 mmol/L (20.0-26.0) H 06/07/19 04:30 ABG O2 Saturation 96.7 % (95.0-99.0) 06/07/19 04:30 Calcium 8.6 mg/dL (8.4-10.2) 06/08/19 04:20 Phosphorus 4.60 mg/dL (2.5-4.5) H 06/06/19 11:34 Magnesium 1.90 mg/dL (1.7-2.3) 05/31/19 13:04 Urine Creatinine 292.8 mg/dL (0.1-20.0) H 05/07/19 22:40 Urine Sodium 11 mmol/L 05/07/19 22:40 Urine Total Protein 269 mg/dL (5-11.8) H 05/07/19 22:40 Medications & Allergies - Medications Allergies/Adverse Reactions: Allergies No Known Allergies Allergy (Verified 05/01/19 20:27) Home Medications: Home Medications Medication Instructions Recorded Confirmed Last Taken Type No Known Home Medications [No 05/03/19 05/03/19 Unknown History Reported Home Medications] Active Medications: Generic Name Dose Route Start Last Admin Trade Name Freq PRN Reason Stop Dose Admin Albumin Human 25 gm 05/19/19 10:47 Alburx 25% (Albumin) IV ARIANE PRN Hypotension Lipase/Protease/Amylase 1 each 05/14/19 15:[address] 10,500 Unit FEEDTUBE PRN PRN For Clogged Feeding Tube Clonidine HCl 0.3 mg 06/06/19 20:00 06/06/19 20:38 Catapres-Tts Patch TD 0.3 mg Lao VICKEY Administration Dextrose 50 gm 05/01/19 20:24 D50w (25gm) Vial IV Q30MIN PRN Hypoglycemia Protocol Enoxaparin Sodium 30 mg 05/16/19 10:00 06/08/19 09:21 Enoxaparin SUB-Q 30 mg QDAY VICKEY Administration Epoetin Hugo 10,000 unit 05/19/19 10:47 06/03/19 11:49 Procrit IV 10,000 unit ARIANE PRN Administration hemodialysis Famotidine 20 mg 05/16/19 10:00 06/08/19 10:00 Pepcid PO Not Given DAILY [facility] Hydralazine HCl 20 mg 05/13/19 08:09 06/08/19 09:21 Apresoline IV 20 mg Q4HR PRN Administration SBP >/=160 Sodium Chloride 100 mls @ 999 mls/hr 05/19/19 10:47 05/20/19 08:14 Nacl 0.9% IV 999 mls/hr ARIANE PRN Administration Hypotension Sodium Chloride 100 mls @ 999 mls/hr 06/08/19 11:42 Nacl 0.9% IV ARIANE PRN Hypotension Insulin Glargine 20 units 06/07/19 22:00 06/07/19 22:48 Lantus SUB-Q 20 units QHS VICKEY Administration Insulin Human Lispro 0 unit 06/01/19 14:00 06/08/19 12:00 Humalog SUB-Q Not Given Q6HR [facility] Protocol Levetiracetam 750 mg 05/13/19 10:00 06/08/19 10:00 Keppra PO Not Given BID VICKEY Methylprednisolone Sodium Succinate 60 mg 06/08/19 14:00 06/08/19 13:44 Solu-Medrol IV 60 mg Q8HR VICKEY Administration Minoxidil 2.5 mg 06/06/19 22:00 06/08/19 10:00 Loniten PO Not Given BID VICKEY Simple Syrup 15 ml 05/14/19 15:01 Simple Syrup FEEDTUBE PRN PRN Hypoglycemia Simple Syrup 30 ml 05/14/19 15:01 Simple Syrup FEEDTUBE PRN PRN Hypoglycemia Sodium Bicarbonate 325 mg 05/14/19 15:01 Sodium Bicarbonate FEEDTUBE PRN PRN For Clogged Feeding Tube
--- NOTE | 2019-06-08 17:32 | Progress Note ---
Assessment and Plan Assessment and plan: 34-year-old man with morbid obesity was brought to the hospital for shortness of breath and insomnia. He was found to have severe hypoxia and bradycardia who then became pulseless, he was cyanotic and he was intubated after receiving CPR with 2 rounds of epinephrine. Acute respiratory failure with hypoxia on mechanical ventilator greater than 96 hours -Obesity hypoventilation Patient extubated 06/07, continue NIV Status post cardiac arrest Suspect anoxic/ischemic brain injury His mentation is not back to baseline yet. Severe malnutrition Dysphasia Speech therapy has been consulted, patient has not been cooperative with the exam, is not clear if he understands, he only says a few words when he turns his head away when any attempts to feed him is made. -Patient seems to have a hard time protecting his airway, he has copious secretions, will treat him with medications for the secretions and recommend frequent suctioning Acute kidney injury/CKD stage V due to ATN Currently dialysis dependent Nephrology input appreciated, patient is nonoliguric, there is hope for renal recovery, follow-up labs and urine output Morbid obesity; will need weight loss program upon discharge DVT prophylaxis; Lovenox History Interval history: No fevers No vomiting no seizure-like activity No diarrhea No agitation No obvious discomfort Hospitalist Physical - Physical exam Narrative exam: General.: Morbidly obese, patient is drooling HEENT: Moist mucous membranes, extraocular muscles intact, no lymphadenopathy Neck: supple Cardiac: S1-S2 heard Lungs: clear to auscultation bilaterally Abdomen: soft , nontender, nondistended, bowel sounds positive Extremities: no edema clubbing or cyanosis Skin: no rash or lesions Neurologic: Patient did not communicate with me, he does not obey commands Per nursing staff when they attempt to give him food await speech therapy try to test him he turns his face away and refuses to try Psych: calm, - Constitutional Vitals: Temp Pulse Resp BP Pulse Ox 98.4 F 94 H 28 H 184/97 95 06/08/19 16:00 06/08/19 16:00 06/08/19 16:00 06/08/19 16:00 06/08/19 16:00 General appearance: Present: mild distress, obese Results - Labs CBC & Chem 7: 06/08/19 04:20 06/08/19 04:20 Labs: Laboratory Last Values WBC 16.0 K/mm3 (4.5-11.0) H 06/08/19 04:20 RBC 3.66 M/mm3 (3.65-5.03) 06/08/19 04:20 Hgb 10.0 gm/dl (11.8-15.2) L 06/08/19 04:20 Hct 32.1 % (35.5-45.6) L 06/08/19 04:20 MCV 88 fl (84-94) 06/08/19 04:20 MCH 27 pg (28-32) L 06/08/19 04:20 MCHC 31 % (32-34) L 06/08/19 04:20 RDW 19.4 % (13.2-15.2) H 06/08/19 04:20 Plt Count 262 K/mm3 (140-440) 06/08/19 04:20 Lymph % (Auto) 7.9 % (13.4-35.0) L 05/18/19 01:50 Smith % (Auto) 16.2 % (0.0-7.3) H 05/22/19 06:25 Eos % (Auto) 10.8 % (0.0-4.3) H 05/22/19 06:25 Baso % (Auto) 0.2 % (0.0-1.8) 05/18/19 01:50 Lymph # 0.7 K/mm3 (1.2-5.4) L 05/18/19 01:50 Smith # 1.3 K/mm3 (0.0-0.8) H 05/22/19 06:25 Eos # 0.9 K/mm3 (0.0-0.4) H 05/22/19 06:25 Baso # 0.0 K/mm3 (0.0-0.1) 05/22/19 06:25 Add Manual Diff Complete 06/08/19 04:20 Total Counted 100 06/08/19 04:20 Seg Neutrophils % 65.5 % (40.0-70.0) 05/22/19 06:25 Seg Neuts % (Manual) 87.0 % (40.0-70.0) H 06/08/19 04:20 Band Neutrophils % 0 % 06/08/19 04:20 Lymphocytes % (Manual) 7.0 % (13.4-35.0) L 06/08/19 04:20 Reactive Lymphs % (Man) 0 % 06/08/19 04:20 Monocytes % (Manual) 6.0 % (0.0-7.3) 06/08/19 04:20 Eosinophils % (Manual) 0 % (0.0-4.3) 06/08/19 04:20 Basophils % (Manual) 0 % (0.0-1.8) 06/08/19 04:20 Metamyelocytes % 0 % 06/08/19 04:20 Myelocytes % 0 % 06/08/19 04:20 Promyelocytes % 0 % 06/08/19 04:20 Blast Cells % 0 % 06/08/19 04:20 Nucleated RBC % Not Reportable 06/08/19 04:20 Seg Neutrophils # 5.3 K/mm3 (1.8-7.7) 05/22/19 06:25 Seg Neutrophils # Man 13.9 K/mm3 (1.8-7.7) H 06/08/19 04:20 Band Neutrophils # 0.0 K/mm3 06/08/19 04:20 Lymphocytes # (Manual) 1.1 K/mm3 (1.2-5.4) L 06/08/19 04:20 Abs React Lymphs (Man) 0.0 K/mm3 06/08/19 04:20 Monocytes # (Manual) 1.0 K/mm3 (0.0-0.8) H 06/08/19 04:20 Eosinophils # (Manual) 0.0 K/mm3 (0.0-0.4) 06/08/19 04:20 Basophils # (Manual) 0.0 K/mm3 (0.0-0.1) 06/08/19 04:20 Metamyelocytes # 0.0 K/mm3 06/08/19 04:20 Myelocytes # 0.0 K/mm3 06/08/19 04:20 Promyelocytes # 0.0 K/mm3 06/08/19 04:20 Blast Cells # 0.0 K/mm3 06/08/19 04:20 WBC Morphology Not Reportable 06/08/19 04:20 Hypersegmented Neuts Not Reportable 06/08/19 04:20 Hyposegmented Neuts Not Reportable 06/08/19 04:20 Hypogranular Neuts Not Reportable 06/08/19 04:20 Smudge Cells Not Reportable 06/08/19 04:20 Toxic Granulation Not Reportable 06/08/19 04:20 Toxic Vacuolation Not Reportable 06/08/19 04:20 Dohle Bodies Not Reportable 06/08/19 04:20 Pelger-Huet Anomaly Not Reportable 06/08/19 04:20 Renea Rods Not Reportable 06/08/19 04:20 Platelet Estimate Consistent w auto 06/08/19 04:20 Clumped Platelets Not Reportable 06/08/19 04:20 Plt Clumps, EDTA Not Reportable 06/08/19 04:20 Large Platelets Not Reportable 06/08/19 04:20 Giant Platelets Not Reportable 06/08/19 04:20 Platelet Satelliting Not Reportable 06/08/19 04:20 Plt Morphology Comment Not Reportable 06/08/19 04:20 RBC Morphology Not Reportable 06/08/19 04:20 Dimorphic RBCs Not Reportable 06/08/19 04:20 Polychromasia Not Reportable 06/08/19 04:20 Hypochromasia Not Reportable 06/08/19 04:20 Poikilocytosis Not Reportable 06/08/19 04:20 Anisocytosis Not Reportable 06/08/19 04:20 Microcytosis Not Reportable 06/08/19 04:20 Macrocytosis Not Reportable 06/08/19 04:20 Spherocytes Not Reportable 06/08/19 04:20 Pappenheimer Bodies Not Reportable 06/08/19 04:20 Sickle Cells Not Reportable 06/08/19 04:20 Target Cells Not Reportable 06/08/19 04:20 Tear Drop Cells Not Reportable 06/08/19 04:20 Ovalocytes Rare 06/08/19 04:20 Stomatocytes Few 06/08/19 04:20 Helmet Cells Not Reportable 06/08/19 04:20 [place] Bodies Not Reportable 06/08/19 04:20 [place] Rings Not Reportable 06/08/19 04:20 Stephan Cells Not Reportable 06/08/19 04:20 Bite Cells Not Reportable 06/08/19 04:20 Crenated Cell Not Reportable 06/08/19 04:20 Elliptocytes Not Reportable 06/08/19 04:20 Acanthocytes (Spur) Not Reportable 06/08/19 04:20 Rouleaux Not Reportable 06/08/19 04:20 Hemoglobin C Crystals Not Reportable 06/08/19 04:20 Schistocytes Few 06/08/19 04:20 Malaria parasites Not Reportable 06/08/19 04:20 Syed Bodies Not Reportable 06/08/19 04:20 Hem Pathologist Commnt No 06/08/19 04:20 PT 15.4 Sec. (12.2-14.9) H 05/01/19 Unknown INR 1.23 (0.87-1.13) H 05/01/19 Unknown APTT 22.7 Sec. (24.2-36.6) L 05/01/19 Unknown POC ABG pH 7.462 (7.35-7.45) H 06/05/19 03:52 ABG pH 7.480 pH Units (7.350-7.450) H 06/07/19 04:30 POC ABG pCO2 39.8 (35-45) 06/05/19 03:52 ABG pCO2 37.4 mm Hg 06/07/19 04:30 POC ABG pO2 86 (80-105) 06/05/19 03:52 ABG pO2 77.0 mm Hg (80.0-90.0) L 06/07/19 04:30 POC ABG HCO3 28.4 (22-26 mml/L) 06/05/19 03:52 ABG HCO3 27.2 mmol/L (20.0-26.0) H 06/07/19 04:30 POC ABG Total CO2 30 (23-27mmol/L) 06/05/19 03:52 POC ABG O2 Sat 97 06/05/19 03:52 ABG O2 Saturation 96.7 % (95.0-99.0) 06/07/19 04:30 ABG O2 Content 9.5 (0.0-44) 06/07/19 04:30 POC ABG Base Excess 5 ((-2) - (+3)mmol/L) 06/05/19 03:52 ABG Base Excess 3.5 mmol/L (-2.0-3.0) H 06/07/19 04:30 ABG Hemoglobin 7.1 gm/dl (14.0-18.0) L 06/07/19 04:30 ABG Carboxyhemoglobin 2.1 % (0.0-5.0) 06/07/19 04:30 ABG Methemoglobin 0.4 % (0.0-1.5) 06/07/19 04:30 Oxyhemoglobin 94.2 % (95.0-99.0) L 06/07/19 04:30 FiO2 30 % 06/07/19 04:30 Sodium 146 mmol/L (137-145) H D 06/08/19 04:20 Potassium 4.9 mmol/L (3.6-5.0) 06/08/19 04:20 Chloride 105.5 mmol/L (98-107) 06/08/19 04:20 Carbon Dioxide 28 mmol/L (22-30) 06/08/19 04:20 Anion Gap 17 mmol/L 06/08/19 04:20 BUN 77 mg/dL (9-20) H 06/08/19 04:20 Creatinine 1.2 mg/dL (0.8-1.5) 06/08/19 04:20 Estimated GFR > 60 ml/min 06/08/19 04:20 BUN/Creatinine Ratio 64 % 06/08/19 04:20 Glucose 205 mg/dL (75-100) H 06/08/19 04:20 POC Glucose 181 (70-105) H 06/08/19 11:31 Osmolality 327 Mosm/kg 05/07/19 13:45 Uric Acid 18.0 mg/dL (3.5-7.6) H 05/07/19 13:45 Calcium 8.6 mg/dL (8.4-10.2) 06/08/19 04:20 Phosphorus 4.60 mg/dL (2.5-4.5) H 06/06/19 11:34 Magnesium 1.90 mg/dL (1.7-2.3) 05/31/19 13:04 Total Bilirubin 0.50 mg/dL (0.1-1.2) 06/08/19 04:20 AST 23 units/L (5-40) 06/08/19 04:20 ALT 66 units/L (7-56) H 06/08/19 04:20 Alkaline Phosphatase 59 units/L (35-129) 06/08/19 04:20 Total Creatine Kinase 131 units/L (55-170) 05/02/19 04:41 CK-MB (CK-2) 5.2 ng/mL (0.0-4.0) H 05/02/19 04:41 CK-MB (CK-2) Rel Index 3.9 (0-4) 05/02/19 04:41 Troponin T 0.067 ng/mL (0.00-0.029) H D 05/02/19 04:41 NT-Pro-B Natriuret Pep 6831 pg/mL (0-450) H 05/01/19 Unknown Total Protein 5.5 g/dL (6.3-8.2) L 06/08/19 04:20 Albumin 2.9 g/dL (3.9-5) L 06/08/19 04:20 Albumin/Globulin Ratio 1.1 % 06/08/19 04:20 Triglycerides 173 mg/dL (2-149) H 05/17/19 Unknown Cholesterol 173 mg/dL (50-199) 05/02/19 00:06 LDL Cholesterol Direct 126 mg/dL (50-130) 05/02/19 00:06 HDL Cholesterol 18 mg/dL (40-59) L 05/02/19 00:06 Cholesterol/HDL Ratio 9.61 % 05/02/19 00:06 Procalcitonin 0.54 ng/mL (<0.15) 05/03/19 11:52 Urine Color Yellow (Yellow) 05/20/19 12:00 Urine Turbidity Cloudy (Clear) 05/20/19 12:00 Urine pH 5.0 (5.0-7.0) 05/20/19 12:00 Ur Specific [place] 1.015 (1.003-1.030) 05/20/19 12:00 Urine Protein 30 mg/dl mg/dL (Negative) 05/20/19 12:00 Urine Glucose (UA) Neg mg/dL (Negative) 05/20/19 12:00 Urine Ketones Neg mg/dL (Negative) 05/20/19 12:00 Urine Blood Lg (Negative) 05/20/19 12:00 Urine Nitrite Neg (Negative) 05/20/19 12:00 Urine Bilirubin Neg (Negative) 05/20/19 12:00 Urine Urobilinogen < 2.0 mg/dL (<2.0) 05/20/19 12:00 Ur Leukocyte Esterase Mod (Negative) 05/20/19 12:00 Urine WBC (Auto) 26.0 /HPF (0.0-6.0) H 05/20/19 12:00 Urine RBC (Auto) 83.0 /HPF (0.0-6.0) 05/20/19 12:00 Urine Bacteria (Auto) 1+ /HPF (Negative) 05/20/19 12:00 Uric Acid Crystals 3+ 05/03/19 10:55 Urine Mucus Few /HPF 05/20/19 12:00 Urine Yeast (Budding) 3+ /HPF 05/20/19 12:00 Urine Creatinine 292.8 mg/dL (0.1-20.0) H 05/07/19 22:40 Urine Sodium 11 mmol/L 05/07/19 22:40 Urine Total Protein 269 mg/dL (5-11.8) H 05/07/19 22:40 Vancomycin Trough 20.5 ug/mL (5.0-20.0) H 05/15/19 09:00 Random Vancomycin 11.5 ug/mL (0-40.0) 05/27/19 06:00 AMNA Screen Negative (Negative) 05/07/19 13:45 Hepatitis A IgM Ab Non-reactive (NonReactive) 05/07/19 13:45 Hep Bs Antigen Non-reactive (Negative) 05/07/19 13:45 Hep B Core IgM Ab Non-reactive (NonReactive) 05/07/19 13:45 Hepatitis C Antibody Non-reactive (NonReactive) 05/07/19 13:45 Active Medications - Current Medications Current Medications: Generic Name Dose Route Start Last Admin Trade Name Freq PRN Reason Stop Dose Admin Albumin Human 25 gm 05/19/19 10:47 Alburx 25% (Albumin) IV ARIANE PRN Hypotension Lipase/Protease/Amylase 1 each 05/14/19 15:01 Pancremannie Fletcher 10,500 Unit FEEDTUBE PRN PRN For Clogged Feeding Tube Clonidine HCl 0.3 mg 06/06/19 20:00 06/06/19 20:38 Catapres-Tts Patch TD 0.3 mg Lao VICKEY Administration Dextrose 50 gm 05/01/19 20:24 D50w (25gm) Vial IV Q30MIN PRN Hypoglycemia Protocol Enalaprilat 0.625 mg 06/08/19 18:00 Vasotec IV Q6HR [facility] Enoxaparin Sodium 30 mg 05/16/19 10:00 06/08/19 09:21 Enoxaparin SUB-Q 30 mg QDAY VICKEY Administration Epoetin Hugo 10,000 unit 05/19/19 10:47 06/03/19 11:49 Procrit IV 10,000 unit ARIANE PRN Administration hemodialysis Famotidine 20 mg 05/16/19 10:00 06/08/19 10:00 Pepcid PO Not Given DAILY [facility] Hydralazine HCl 20 mg 05/13/19 08:09 06/08/19 09:21 Apresoline IV 20 mg Q4HR PRN Administration SBP >/=160 Sodium Chloride 100 mls @ 999 mls/hr 05/19/19 10:47 05/20/19 08:14 Nacl 0.9% IV 999 mls/hr ARIANE PRN Administration Hypotension Sodium Chloride 100 mls @ 999 mls/hr 06/08/19 11:42 Nacl 0.9% IV ARIANE PRN Hypotension Insulin Glargine 20 units 06/07/19 22:00 06/07/19 22:48 Lantus SUB-Q 20 units QHS [facility] Administration Insulin Human Lispro 0 unit 06/01/19 14:00 06/08/19 12:00 Humalog SUB-Q Not Given Q6HR [facility] Protocol Labetalol HCl 10 mg 06/08/19 17:20 Labetalol IV Q4H PRN BP >170/105; hold for HR <60 Levetiracetam 750 mg 05/13/19 10:00 06/08/19 10:00 Keppra PO Not Given BID [facility] Methylprednisolone Sodium Succinate 60 mg 06/08/19 14:00 06/08/19 13:44 Solu-Medrol IV 60 mg Q8HR [facility] Administration Minoxidil 2.5 mg 06/06/19 22:00 06/08/19 10:00 Loniten PO Not Given BID VICKEY Simple Syrup 15 ml 05/14/19 15:01 Simple Syrup FEEDTUBE PRN PRN Hypoglycemia Simple Syrup 30 ml 05/14/19 15:01 Simple Syrup FEEDTUBE PRN PRN Hypoglycemia Sodium Bicarbonate 325 mg 05/14/19 15:01 Sodium Bicarbonate FEEDTUBE PRN PRN For Clogged Feeding Tube Nutrition/Malnutrition Assess - Dietary Evaluation Nutrition/Malnutrition Findings: Nutrition Notes Start: 05/04/19 1 2:54 Freq: Status: Active Protocol: Document 06/03/19 11:05 KS (Rec: 06/03/19 11:12 KS [id number]) Co-Sign 06/03/19 11:05 LP Nutrition Notes Initial or Follow up Reassessment Current Diagnosis Acute Kidney Injury,Sepsis, Respiratory Failure Other Pertinent Diagnosis on HD Current Diet Nepro 1.8 at 50 ml/hr Labs/Tests BUN 119 CR 4.1 Glu 330 POC Glu 254 Ca 8.1 Pertinent Medications Humalog Solumedrol Propofol at 7.011 ml/hr( 185kcal) Height 6 ft 4 in Weight 257.2 kg [place] Body Weight (kg) 91.81 BMI 69.0 Weight change and time frame Wt change noted. Likely due to fluid Weight Status Morbidly Obese Subjective/Other Information Pt tolerating Nepro at 50ml/hr . Pt on HD. Per MD, pt to possibly be extubated this week. Percent of energy/protein needs met: 100%/43% Burn Absent Trauma Absent Current % PO Negligible Minimum of two criteria No physical signs of malnutrition #1 Nutrition Diagnosis Inadequate oral intake Diagnosis Progress(for reassessment Continues documentation) Is patient on ventilator? Yes Is Patient Ambulatory and/or Out of Bed No REE-([facility]-confined to bed) 4342.284 Kcal/Kg value to use for calculation 8 Approximate Energy Requirements Using 2058 kcal/Kg Calculation Used for Recommendations Kcal/kg Additional Notes PRO needs: 225 g (up to 2.5 g/ kg IBW) Fluid needs: 1 ml/kcal Nutrition Intervention Change Diet Order: Continue TF Nutrition Support: Nepro 1.8 at 50 ml/hr Flush with 150ml q4h Kcal 2,160 Protein (gm) 97 Fluid (mL) 872 Goal #1 TF tolerance Goal #2 Meet at least 75% kcal/PRO needs via TF Anticipated Discharge Needs: Unable to determine at this time Follow-Up By: 06/10/19 Additional Comments Follow for TF tolerance
[2019-06-08] MEDS: ENALAPRILAT 2.5 MG/2 ML INJ IV SCH (19:00)
[2019-06-08] MEDS ORDERED: SODIUM CHLORIDE*PRIMING MACHINE ONLY FOR DIALYSIS MC ONE (20:33)
[2019-06-08] MEDS: INSULIN GLARGINE 100 UNITS/ML SUB-Q SCH (21:09)
[2019-06-09] MEDS: ENALAPRILAT 2.5 MG/2 ML INJ IV SCH ×2 (02:11→05:01)
[2019-06-09] MEDS: hydrALAZINE 20 MG/1 ML INJ IV PRN ×3 (05:07→18:35)
[2019-06-09] MEDS: methylPREDNISolone Sod Succinate 40 MG/1 ML INJ IV SCH ×3 (05:08→21:49)
[2019-06-09] MEDS: INSULIN LISPRO 100 UNIT/ML SUB-Q SCH ×4 (05:13→18:31)
[2019-06-09] MEDS: MINOXIDIL 2.5 MG TAB PO SCH (10:00)
[2019-06-09] MEDS: levETIRAcetam 500 MG/5 ML ORAL LIQD PO SCH ×2 (10:00→21:49)
[2019-06-09] MEDS: ENOXAPARIN 30 MG/0.3 ML INJ SUB-Q SCH (10:00)
[2019-06-09] MEDS: FAMOTIDINE 20 MG TAB PO SCH (10:00)
--- NOTE | 2019-06-09 12:20 | Progress Note ---
Assessment and Plan 34 y/o male with acute hypoxic, hypercapnic respiratory failure currently ventilated and sedated, now with persistent fevers and seizure and on HD 06/09/2019: Continue bipap therapy for now and tonight. Needs chemistry, may need HD again tomorrow but will defer to Renal. At this point, no indication for intubation as patient is awake and tolerating bipap. Hopeful to continue this bridge for now. BP control 1. ID: Patient unable to fit in scanner so CT of head sinus, chest will not happen. ID has placed back on renally adjusted Vanc. he has grown out jarad from urine and a tracheal aspirate 2. Pulm: FIO2 now @ 40%. ABG was good. Will wean after HD today. Can start to come down on PEEP. Will drop to 12 3. Renal: HD per renal, will need permacath per vascular notes if patient can be afebrile. 4. 37 days of intubation. 5. Trying to avoid trach as much as possible. He is on his fourth week of intubation. However still requiring high levels of PEEP. At this point, once weaned to normal PEEP levels, hoping that we can extubate. CCT 31 minutes. Subjective Date of service: 06/09/19 Principal diagnosis: HF; acute hypoxemic resp failure, SIRS, CARLA Interval history: patient transferred to IMCU on yesterday. Early am had some desats but was awake and alert so placed on bipap. Was suctioned a few times last night but does not appear he was placed on bipap. Currently on a nasal mask now, awake and alert, tolerating. Objective Vital Signs - 12hr 06/09/19 06/09/19 06/09/19 00:28 00:30 01:00 Temperature Pulse Rate 108 H 108 H 109 H Pulse Rate [ From Monitor] Respiratory 22 36 H 29 H Rate Blood Pressure 159/79 163/76 165/89 O2 Sat by Pulse 96 95 92 Oximetry 06/09/19 06/09/19 06/09/19 01:30 02:00 02:20 Temperature Pulse Rate 108 H 107 H 113 H Pulse Rate [ From Monitor] Respiratory 20 20 Rate Blood Pressure 175/81 194/99 187/90 O2 Sat by Pulse 90 80 L Oximetry 06/09/19 06/09/19 06/09/19 02:31 03:00 03:30 Temperature Pulse Rate 99 H 106 H 103 H Pulse Rate [ From Monitor] Respiratory 20 13 16 Rate Blood Pressure 166/79 168/87 176/86 O2 Sat by Pulse 91 86 91 Oximetry 06/09/19 06/09/19 06/09/19 04:00 04:31 05:00 Temperature 99.0 F Pulse Rate 108 H 108 H 109 H Pulse Rate [ 94 H From Monitor] Respiratory 32 H 19 12 Rate Blood Pressure 177/100 183/90 153/85 O2 Sat by Pulse 88 97 84 Oximetry 06/09/19 06/09/19 06/09/19 05:07 05:31 07:00 Temperature Pulse Rate 100 H 114 H 111 H Pulse Rate [ From Monitor] Respiratory 21 19 Rate Blood Pressure 183/90 153/85 162/70 O2 Sat by Pulse 95 92 Oximetry 06/09/19 06/09/19 06/09/19 07:31 08:00 08:01 Temperature 98.9 F Pulse Rate 105 H 105 H 105 H Pulse Rate [ 105 H From Monitor] Respiratory 18 12 12 Rate Blood Pressure 155/67 155/67 O2 Sat by Pulse 95 97 97 Oximetry 06/09/19 06/09/19 06/09/19 08:24 08:46 10:40 Temperature Pulse Rate 102 H 91 H 107 H Pulse Rate [ From Monitor] Respiratory 20 Rate Blood Pressure 212/105 193/98 189/93 O2 Sat by Pulse 97 Oximetry Constitutional: no acute distress, other (morbidly obese male, on vent, orally intubated) Eyes: non-icteric ENT: oropharynx moist Neck: other (extremely large in circumference) Effort: normal Ascultation: Bilateral: diminished breath sounds (secondary to body habitus) Cardiovascular: regular rate and rhythm (no mrg) Gastrointestinal: normoactive bowel sounds, non-tender, other (obese) Integumentary: other (L hand is wrapped) Extremities: no cyanosis, pink and warm, other (1+ generalized edema) Neurologic: unable to assess Psychiatric: other (unable to assess) CBC and BMP: 06/08/19 04:20 06/08/19 04:20 ABG, PT/INR, D-dimer: ABG POC ABG pH 7.462 (7.35-7.45) H 06/05/19 03:52 ABG pH 7.480 pH Units (7.350-7.450) H 06/07/19 04:30 POC ABG pCO2 39.8 (35-45) 06/05/19 03:52 ABG pCO2 37.4 mm Hg 06/07/19 04:30 POC ABG pO2 86 (80-105) 06/05/19 03:52 ABG pO2 77.0 mm Hg (80.0-90.0) L 06/07/19 04:30 POC ABG HCO3 28.4 (22-26 mml/L) 06/05/19 03:52 POC ABG Total CO2 30 (23-27mmol/L) 06/05/19 03:52 POC ABG O2 Sat 97 06/05/19 03:52 ABG O2 Saturation 96.7 % (95.0-99.0) 06/07/19 04:30 PT/INR, D-dimer PT 15.4 Sec. (12.2-14.9) H 05/01/19 Unknown INR 1.23 (0.87-1.13) H 05/01/19 Unknown Abnormal lab findings: Abnormal Labs 05/01/19 05/01/19 05/01/19 17:50 19:26 22:36 WBC RBC Hgb Hct MCV MCH MCHC RDW Lymph % (Auto) [place] % (Auto) Eos % (Auto) Lymph # [place] # Eos # Seg Neutrophils % Seg Neuts % (Manual) Lymphocytes % (Manual) Monocytes % (Manual) Eosinophils % (Manual) Nucleated RBC % Seg Neutrophils # Seg Neutrophils # Man Lymphocytes # (Manual) Monocytes # (Manual) Eosinophils # (Manual) PT INR APTT POC ABG pH 7.272 L 7.331 L ABG pH POC ABG pCO2 52.8 H POC ABG pO2 ABG pO2 ABG HCO3 ABG O2 Saturation ABG Base Excess ABG Hemoglobin Oxyhemoglobin Sodium 136 L Potassium 6.5 H* Chloride 97.2 L Carbon Dioxide BUN 60 H Creatinine Glucose 113 H POC Glucose Uric Acid Calcium Phosphorus Magnesium 2.40 H AST 139 H ALT 154 H Total Creatine Kinase CK-MB (CK-2) Troponin T NT-Pro-B Natriuret Pep Total Protein Albumin 3.8 L Triglycerides HDL Cholesterol Urine WBC (Auto) Urine Creatinine Urine Total Protein Vancomycin Trough 05/01/19 05/01/19 05/01/19 Unknown Unknown Unknown WBC 16.1 H RBC Hgb Hct MCV MCH MCHC RDW 17.2 H Lymph % (Auto) [place] % (Auto) 9.6 H Eos % (Auto) Lymph # [place] # 1.5 H Eos # Seg Neutrophils % 73.0 H Seg Neuts % (Manual) Lymphocytes % (Manual) Monocytes % (Manual) Eosinophils % (Manual) Nucleated RBC % Seg Neutrophils # 11.7 H Seg Neutrophils # Man Lymphocytes # (Manual) Monocytes # (Manual) Eosinophils # (Manual) PT 15.4 H INR 1.23 H APTT 22.7 L POC ABG pH ABG pH POC ABG pCO2 POC ABG pO2 ABG pO2 ABG HCO3 ABG O2 Saturation ABG Base Excess ABG Hemoglobin Oxyhemoglobin Sodium Potassium Chloride Carbon Dioxide BUN Creatinine Glucose POC Glucose Uric Acid Calcium Phosphorus Magnesium AST ALT Total Creatine Kinase CK-MB (CK-2) Troponin T NT-Pro-B Natriuret Pep 6831 H Total Protein Albumin Triglycerides HDL Cholesterol Urine WBC (Auto) Urine Creatinine Urine Total Protein Vancomycin Trough 05/01/19 05/02/19 05/02/19 Unknown 00:06 00:06 WBC RBC Hgb Hct MCV MCH MCHC RDW Lymph % (Auto) [place] % (Auto) Eos % (Auto) Lymph # [place] # Eos # Seg Neutrophils % Seg Neuts % (Manual) Lymphocytes % (Manual) Monocytes % (Manual) Eosinophils % (Manual) Nucleated RBC % Seg Neutrophils # Seg Neutrophils # Man Lymphocytes # (Manual) Monocytes # (Manual) Eosinophils # (Manual) PT INR APTT POC ABG pH ABG pH POC ABG pCO2 POC ABG pO2 ABG pO2 ABG HCO3 ABG O2 Saturation ABG Base Excess ABG Hemoglobin Oxyhemoglobin Sodium Potassium Chloride Carbon Dioxide BUN Creatinine Glucose POC Glucose Uric Acid Calcium Phosphorus 4.90 H Magnesium AST ALT Total Creatine Kinase 226 H CK-MB (CK-2) 5.7 H Troponin T 0.044 H NT-Pro-B Natriuret Pep Total Protein Albumin Triglycerides 182 H HDL Cholesterol 18 L Urine WBC (Auto) Urine Creatinine Urine Total Protein Vancomycin Trough 05/02/19 05/02/19 05/02/19 02:08 04:40 04:41 WBC 17.6 H RBC Hgb Hct MCV MCH 27 L MCHC RDW 17.4 H Lymph % (Auto) 10.2 L [place] % (Auto) 11.0 H Eos % (Auto) Lymph # [place] # 1.9 H Eos # Seg Neutrophils % 78.0 H Seg Neuts % (Manual) Lymphocytes % (Manual) Monocytes % (Manual) Eosinophils % (Manual) Nucleated RBC % Seg Neutrophils # 13.8 H Seg Neutrophils # Man Lymphocytes # (Manual) Monocytes # (Manual) Eosinophils # (Manual) PT INR APTT POC ABG pH ABG pH POC ABG pCO2 46.8 H POC ABG pO2 63 L ABG pO2 ABG HCO3 ABG O2 Saturation ABG Base Excess ABG Hemoglobin Oxyhemoglobin Sodium Potassium Chloride 96.3 L Carbon Dioxide BUN 63 H Creatinine 1.7 H Glucose POC Glucose Uric Acid Calcium Phosphorus Magnesium AST ALT Total Creatine Kinase CK-MB (CK-2) Troponin T NT-Pro-B Natriuret Pep Total Protein Albumin Triglycerides HDL Cholesterol Urine WBC (Auto) Urine Creatinine Urine Total Protein Vancomycin Trough 05/02/19 05/02/19 05/02/19 04:41 04:41 16:05 WBC RBC Hgb Hct MCV MCH MCHC RDW Lymph % (Auto) [place] % (Auto) Eos % (Auto) Lymph # [place] # Eos # Seg Neutrophils % Seg Neuts % (Manual) Lymphocytes % (Manual) Monocytes % (Manual) Eosinophils % (Manual) Nucleated RBC % Seg Neutrophils # Seg Neutrophils # Man Lymphocytes # (Manual) Monocytes # (Manual) Eosinophils # (Manual) PT INR APTT POC ABG pH ABG pH POC ABG pCO2 POC ABG pO2 ABG pO2 66.6 L ABG HCO3 31.9 H ABG O2 Saturation 92.5 L ABG Base Excess 5.8 H ABG Hemoglobin 13.3 L Oxyhemoglobin 90.6 L Sodium Potassium Chloride 97.2 L Carbon Dioxide BUN 61 H Creatinine 1.8 H Glucose POC Glucose Uric Acid Calcium Phosphorus Magnesium AST ALT Total Creatine Kinase CK-MB (CK-2) 5.2 H Troponin T 0.067 H D NT-Pro-B Natriuret Pep Total Protein Albumin Triglycerides HDL Cholesterol Urine WBC (Auto) Urine Creatinine Urine Total Protein Vancomycin Trough 05/02/19 05/03/19 05/03/19 20:39 04:35 05:05 WBC 11.8 H RBC Hgb Hct MCV MCH 27 L MCHC 31 L RDW 17.2 H Lymph % (Auto) [place] % (Auto) Eos % (Auto) Lymph # [place] # Eos # Seg Neutrophils % Seg Neuts % (Manual) Lymphocytes % (Manual) Monocytes % (Manual) Eosinophils % (Manual) Nucleated RBC % Seg Neutrophils # Seg Neutrophils # Man Lymphocytes # (Manual) Monocytes # (Manual) Eosinophils # (Manual) PT INR APTT POC ABG pH ABG pH POC ABG pCO2 53.6 H 54.0 H POC ABG pO2 55 L 63 L ABG pO2 ABG HCO3 ABG O2 Saturation ABG Base Excess ABG Hemoglobin Oxyhemoglobin Sodium Potassium Chloride Carbon Dioxide BUN Creatinine Glucose POC Glucose Uric Acid Calcium Phosphorus Magnesium AST ALT Total Creatine Kinase CK-MB (CK-2) Troponin T NT-Pro-B Natriuret Pep Total Protein Albumin Triglycerides HDL Cholesterol Urine WBC (Auto) Urine Creatinine Urine Total Protein Vancomycin Trough 05/03/19 05/03/19 05/03/19 05:05 10:55 16:48 WBC RBC Hgb Hct MCV MCH MCHC RDW Lymph % (Auto) [place] % (Auto) Eos % (Auto) Lymph # [place] # Eos # Seg Neutrophils % Seg Neuts % (Manual) Lymphocytes % (Manual) Monocytes % (Manual) Eosinophils % (Manual) Nucleated RBC % Seg Neutrophils # Seg Neutrophils # Man Lymphocytes # (Manual) Monocytes # (Manual) Eosinophils # (Manual) PT INR APTT POC ABG pH 7.604 H ABG pH POC ABG pCO2 POC ABG pO2 58 L ABG pO2 ABG HCO3 ABG O2 Saturation ABG Base Excess ABG Hemoglobin Oxyhemoglobin Sodium Potassium Chloride Carbon Dioxide BUN 52 H Creatinine 1.9 H Glucose 103 H POC Glucose Uric Acid Calcium Phosphorus Magnesium AST ALT Total Creatine Kinase CK-MB (CK-2) Troponin T NT-Pro-B Natriuret Pep Total Protein Albumin Triglycerides HDL Cholesterol Urine WBC (Auto) 33.0 H Urine Creatinine Urine Total Protein Vancomycin Trough 05/04/19 05/04/19 05/04/19 04:49 06:50 06:50 WBC 16.0 H RBC Hgb Hct MCV MCH 27 L MCHC 31 L RDW 17.8 H Lymph % (Auto) [place] % (Auto) Eos % (Auto) Lymph # [place] # Eos # Seg Neutrophils % Seg Neuts % (Manual) Lymphocytes % (Manual) Monocytes % (Manual) Eosinophils % (Manual) Nucleated RBC % Seg Neutrophils # Seg Neutrophils # Man Lymphocytes # (Manual) Monocytes # (Manual) Eosinophils # (Manual) PT INR APTT POC ABG pH 7.273 L ABG pH POC ABG pCO2 POC ABG pO2 ABG pO2 ABG HCO3 ABG O2 Saturation ABG Base Excess ABG Hemoglobin Oxyhemoglobin Sodium 148 H Potassium 5.5 H Chloride Carbon Dioxide BUN 53 H Creatinine 3.3 H D Glucose 106 H POC Glucose Uric Acid Calcium 8.3 L Phosphorus Magnesium AST ALT Total Creatine Kinase CK-MB (CK-2) Troponin T NT-Pro-B Natriuret Pep Total Protein Albumin Triglycerides HDL Cholesterol Urine WBC (Auto) Urine Creatinine Urine Total Protein Vancomycin Trough 05/05/19 05/05/19 05/05/19 00:05 04:30 05:00 WBC RBC Hgb Hct MCV MCH MCHC RDW Lymph % (Auto) [place] % (Auto) Eos % (Auto) Lymph # [place] # Eos # Seg Neutrophils % Seg Neuts % (Manual) Lymphocytes % (Manual) Monocytes % (Manual) Eosinophils % (Manual) Nucleated RBC % Seg Neutrophils # Seg Neutrophils # Man Lymphocytes # (Manual) Monocytes # (Manual) Eosinophils # (Manual) PT INR APTT POC ABG pH 7.225 L ABG pH POC ABG pCO2 > 70 H POC ABG pO2 ABG pO2 ABG HCO3 ABG O2 Saturation ABG Base Excess ABG Hemoglobin Oxyhemoglobin Sodium 151 H Potassium 5.1 H Chloride Carbon Dioxide BUN 64 H Creatinine 3.5 H Glucose 117 H POC Glucose 141 H Uric Acid Calcium 7.5 L Phosphorus Magnesium AST 93 H ALT 65 H Total Creatine Kinase CK-MB (CK-2) Troponin T NT-Pro-B Natriuret Pep Total Protein Albumin 2.9 L Triglycerides HDL Cholesterol Urine WBC (Auto) Urine Creatinine Urine Total Protein Vancomycin Trough 05/05/19 05/05/19 05/05/19 05:00 12:02 17:46 WBC 12.0 H RBC Hgb 11.3 L Hct MCV MCH 27 L MCHC 30 L RDW 18.4 H Lymph % (Auto) 7.9 L [place] % (Auto) 10.2 H Eos % (Auto) Lymph # 1.0 L [place] # 1.2 H Eos # Seg Neutrophils % 80.8 H Seg Neuts % (Manual) Lymphocytes % (Manual) Monocytes % (Manual) Eosinophils % (Manual) Nucleated RBC % Seg Neutrophils # 9.7 H Seg Neutrophils # Man Lymphocytes # (Manual) Monocytes # (Manual) Eosinophils # (Manual) PT INR APTT POC ABG pH ABG pH POC ABG pCO2 POC ABG pO2 ABG pO2 ABG HCO3 ABG O2 Saturation ABG Base Excess ABG Hemoglobin Oxyhemoglobin Sodium Potassium Chloride Carbon Dioxide BUN Creatinine Glucose POC Glucose 125 H 112 H Uric Acid Calcium Phosphorus Magnesium AST ALT Total Creatine Kinase CK-MB (CK-2) Troponin T NT-Pro-B Natriuret Pep Total Protein Albumin Triglycerides HDL Cholesterol Urine WBC (Auto) Urine Creatinine Urine Total Protein Vancomycin Trough 05/05/19 05/06/19 05/06/19 23:42 03:58 04:45 WBC 11.4 H RBC Hgb 10.7 L Hct 34.2 L MCV MCH 27 L MCHC 31 L RDW 16.9 H Lymph % (Auto) [place] % (Auto) Eos % (Auto) Lymph # [place] # Eos # Seg Neutrophils % Seg Neuts % (Manual) Lymphocytes % (Manual) Monocytes % (Manual) Eosinophils % (Manual) Nucleated RBC % Seg Neutrophils # Seg Neutrophils # Man Lymphocytes # (Manual) Monocytes # (Manual) Eosinophils # (Manual) PT INR APTT POC ABG pH ABG pH POC ABG pCO2 62.4 H POC ABG pO2 111 H ABG pO2 ABG HCO3 ABG O2 Saturation ABG Base Excess ABG Hemoglobin Oxyhemoglobin Sodium Potassium Chloride Carbon Dioxide BUN Creatinine Glucose POC Glucose 128 H Uric Acid Calcium Phosphorus Magnesium AST ALT Total Creatine Kinase CK-MB (CK-2) Troponin T NT-Pro-B Natriuret Pep Total Protein Albumin Triglycerides HDL Cholesterol Urine WBC (Auto) Urine Creatinine Urine Total Protein Vancomycin Trough 05/06/19 05/06/19 05/06/19 04:45 05:33 12:30 WBC RBC Hgb Hct MCV MCH MCHC RDW Lymph % (Auto) [place] % (Auto) Eos % (Auto) Lymph # [place] # Eos # Seg Neutrophils % Seg Neuts % (Manual) Lymphocytes % (Manual) Monocytes % (Manual) Eosinophils % (Manual) Nucleated RBC % Seg Neutrophils # Seg Neutrophils # Man Lymphocytes # (Manual) Monocytes # (Manual) Eosinophils # (Manual) PT INR APTT POC ABG pH ABG pH POC ABG pCO2 POC ABG pO2 ABG pO2 ABG HCO3 ABG O2 Saturation ABG Base Excess ABG Hemoglobin Oxyhemoglobin Sodium 149 H Potassium Chloride Carbon Dioxide 31 H BUN 67 H Creatinine 3.2 H Glucose 125 H POC Glucose 117 H 116 H Uric Acid Calcium 7.5 L Phosphorus Magnesium AST ALT Total Creatine Kinase CK-MB (CK-2) Troponin T NT-Pro-B Natriuret Pep Total Protein Albumin Triglycerides HDL Cholesterol Urine WBC (Auto) Urine Creatinine Urine Total Protein Vancomycin Trough 05/06/19 05/06/19 05/07/19 18:34 23:16 05:22 WBC RBC Hgb Hct MCV MCH MCHC RDW Lymph % (Auto) [place] % (Auto) Eos % (Auto) Lymph # [place] # Eos # Seg Neutrophils % Seg Neuts % (Manual) Lymphocytes % (Manual) Monocytes % (Manual) Eosinophils % (Manual) Nucleated RBC % Seg Neutrophils # Seg Neutrophils # Man Lymphocytes # (Manual) Monocytes # (Manual) Eosinophils # (Manual) PT INR APTT POC ABG pH ABG pH POC ABG pCO2 POC ABG pO2 ABG pO2 ABG HCO3 ABG O2 Saturation ABG Base Excess ABG Hemoglobin Oxyhemoglobin Sodium Potassium Chloride Carbon Dioxide BUN Creatinine Glucose POC Glucose 128 H 143 H 166 H Uric Acid Calcium Phosphorus Magnesium AST ALT Total Creatine Kinase CK-MB (CK-2) Troponin T NT-Pro-B Natriuret Pep Total Protein Albumin Triglycerides HDL Cholesterol Urine WBC (Auto) Urine Creatinine Urine Total Protein Vancomycin Trough 05/07/19 05/07/19 05/07/19 06:33 07:03 09:35 WBC RBC Hgb Hct MCV MCH MCHC RDW Lymph % (Auto) [place] % (Auto) Eos % (Auto) Lymph # [place] # Eos # Seg Neutrophils % Seg Neuts % (Manual) Lymphocytes % (Manual) Monocytes % (Manual) Eosinophils % (Manual) Nucleated RBC % Seg Neutrophils # Seg Neutrophils # Man Lymphocytes # (Manual) Monocytes # (Manual) Eosinophils # (Manual) PT INR APTT POC ABG pH 7.263 L 7.288 L ABG pH POC ABG pCO2 POC ABG pO2 51 L 56 L ABG pO2 ABG HCO3 ABG O2 Saturation ABG Base Excess ABG Hemoglobin Oxyhemoglobin Sodium Potassium Chloride Carbon Dioxide BUN 76 H Creatinine 3.2 H Glucose 147 H POC Glucose Uric Acid Calcium 7.9 L Phosphorus Magnesium AST ALT Total Creatine Kinase CK-MB (CK-2) Troponin T NT-Pro-B Natriuret Pep Total Protein Albumin Triglycerides HDL Cholesterol Urine WBC (Auto) Urine Creatinine Urine Total Protein Vancomycin Trough 05/07/19 05/07/19 05/07/19 09:35 12:17 13:45 WBC 13.4 H RBC Hgb 11.6 L Hct MCV MCH 27 L MCHC 31 L RDW 17.5 H Lymph % (Auto) [place] % (Auto) Eos % (Auto) Lymph # [place] # Eos # Seg Neutrophils % Seg Neuts % (Manual) Lymphocytes % (Manual) Monocytes % (Manual) Eosinophils % (Manual) Nucleated RBC % Seg Neutrophils # Seg Neutrophils # Man Lymphocytes # (Manual) Monocytes # (Manual) Eosinophils # (Manual) PT INR APTT POC ABG pH ABG pH POC ABG pCO2 POC ABG pO2 ABG pO2 ABG HCO3 ABG O2 Saturation ABG Base Excess ABG Hemoglobin Oxyhemoglobin Sodium Potassium Chloride Carbon Dioxide BUN Creatinine Glucose POC Glucose 130 H Uric Acid 18.0 H Calcium Phosphorus Magnesium AST ALT Total Creatine Kinase CK-MB (CK-2) Troponin T NT-Pro-B Natriuret Pep Total Protein Albumin Triglycerides HDL Cholesterol Urine WBC (Auto) Urine Creatinine Urine Total Protein Vancomycin Trough 05/07/19 05/07/19 05/08/19 17:39 22:40 05:06 WBC RBC Hgb Hct MCV MCH MCHC RDW Lymph % (Auto) [place] % (Auto) Eos % (Auto) Lymph # [place] # Eos # Seg Neutrophils % Seg Neuts % (Manual) Lymphocytes % (Manual) Monocytes % (Manual) Eosinophils % (Manual) Nucleated RBC % Seg Neutrophils # Seg Neutrophils # Man Lymphocytes # (Manual) Monocytes # (Manual) Eosinophils # (Manual) PT INR APTT POC ABG pH ABG pH POC ABG pCO2 POC ABG pO2 ABG pO2 ABG HCO3 ABG O2 Saturation ABG Base Excess ABG Hemoglobin Oxyhemoglobin Sodium Potassium Chloride Carbon Dioxide BUN Creatinine Glucose POC Glucose 116 H 148 H Uric Acid Calcium Phosphorus Magnesium AST ALT Total Creatine Kinase CK-MB (CK-2) Troponin T NT-Pro-B Natriuret Pep Total Protein Albumin Triglycerides HDL Cholesterol Urine WBC (Auto) Urine Creatinine 292.8 H Urine Total Protein 269 H Vancomycin Trough 05/08/19 05/08/19 05/08/19 05:32 11:28 13:48 WBC RBC Hgb Hct MCV MCH MCHC RDW Lymph % (Auto) [place] % (Auto) Eos % (Auto) Lymph # [place] # Eos # Seg Neutrophils % Seg Neuts % (Manual) Lymphocytes % (Manual) Monocytes % (Manual) Eosinophils % (Manual) Nucleated RBC % Seg Neutrophils # Seg Neutrophils # Man Lymphocytes # (Manual) Monocytes # (Manual) Eosinophils # (Manual) PT INR APTT POC ABG pH ABG pH POC ABG pCO2 45.4 H POC ABG pO2 64 L ABG pO2 ABG HCO3 ABG O2 Saturation ABG Base Excess ABG Hemoglobin Oxyhemoglobin Sodium Potassium Chloride Carbon Dioxide BUN 73 H Creatinine 2.7 H Glucose 127 H POC Glucose 107 H Uric Acid Calcium 7.6 L Phosphorus Magnesium AST ALT Total Creatine Kinase CK-MB (CK-2) Troponin T NT-Pro-B Natriuret Pep Total Protein Albumin Triglycerides HDL Cholesterol Urine WBC (Auto) Urine Creatinine Urine Total Protein Vancomycin Trough 05/08/19 05/09/19 05/09/19 17:48 04:50 04:53 WBC RBC 3.07 L Hgb 8.5 L D Hct 29.3 L D MCV 96 H MCH MCHC 29 L RDW 18.1 H Lymph % (Auto) [place] % (Auto) Eos % (Auto) Lymph # [place] # Eos # Seg Neutrophils % Seg Neuts % (Manual) Lymphocytes % (Manual) Monocytes % (Manual) Eosinophils % (Manual) Nucleated RBC % Seg Neutrophils # Seg Neutrophils # Man Lymphocytes # (Manual) Monocytes # (Manual) Eosinophils # (Manual) PT INR APTT POC ABG pH 7.316 L ABG pH POC ABG pCO2 66.0 H POC ABG pO2 69 L ABG pO2 ABG HCO3 ABG O2 Saturation ABG Base Excess ABG Hemoglobin Oxyhemoglobin Sodium Potassium Chloride Carbon Dioxide BUN Creatinine Glucose POC Glucose 155 H Uric Acid Calcium Phosphorus Magnesium AST ALT Total Creatine Kinase CK-MB (CK-2) Troponin T NT-Pro-B Natriuret Pep Total Protein Albumin Triglycerides HDL Cholesterol Urine WBC (Auto) Urine Creatinine Urine Total Protein Vancomycin Trough 05/09/19 05/09/19 05/09/19 05:46 07:24 12:10 WBC RBC Hgb Hct MCV MCH MCHC RDW Lymph % (Auto) [place] % (Auto) Eos % (Auto) Lymph # [place] # Eos # Seg Neutrophils % Seg Neuts % (Manual) Lymphocytes % (Manual) Monocytes % (Manual) Eosinophils % (Manual) Nucleated RBC % Seg Neutrophils # Seg Neutrophils # Man Lymphocytes # (Manual) Monocytes # (Manual) Eosinophils # (Manual) PT INR APTT POC ABG pH ABG pH POC ABG pCO2 POC ABG pO2 ABG pO2 ABG HCO3 ABG O2 Saturation ABG Base Excess ABG Hemoglobin Oxyhemoglobin Sodium Potassium Chloride Carbon Dioxide BUN 73 H Creatinine 2.4 H Glucose 153 H POC Glucose 123 H 148 H Uric Acid Calcium 8.2 L Phosphorus Magnesium AST 45 H ALT Total Creatine Kinase CK-MB (CK-2) Troponin T NT-Pro-B Natriuret Pep Total Protein 6.0 L Albumin 1.9 L Triglycerides HDL Cholesterol Urine WBC (Auto) Urine Creatinine Urine Total Protein Vancomycin Trough 05/09/19 05/09/19 05/10/19 18:23 23:26 04:52 WBC RBC Hgb Hct MCV MCH MCHC RDW Lymph % (Auto) [place] % (Auto) Eos % (Auto) Lymph # [place] # Eos # Seg Neutrophils % Seg Neuts % (Manual) Lymphocytes % (Manual) Monocytes % (Manual) Eosinophils % (Manual) Nucleated RBC % Seg Neutrophils # Seg Neutrophils # Man Lymphocytes # (Manual) Monocytes # (Manual) Eosinophils # (Manual) PT INR APTT POC ABG pH 7.305 L ABG pH POC ABG pCO2 62.6 H POC ABG pO2 ABG pO2 ABG HCO3 ABG O2 Saturation ABG Base Excess ABG Hemoglobin Oxyhemoglobin Sodium Potassium Chloride Carbon Dioxide BUN Creatinine Glucose POC Glucose 147 H 121 H Uric Acid Calcium Phosphorus Magnesium AST ALT Total Creatine Kinase CK-MB (CK-2) Troponin T NT-Pro-B Natriuret Pep Total Protein Albumin Triglycerides HDL Cholesterol Urine WBC (Auto) Urine Creatinine Urine Total Protein Vancomycin Trough 05/10/19 05/10/19 05/10/19 05:00 05:00 05:50 WBC RBC Hgb 10.3 L Hct 33.7 L MCV MCH 27 L MCHC 31 L RDW 17.0 H Lymph % (Auto) [place] % (Auto) Eos % (Auto) Lymph # [place] # Eos # Seg Neutrophils % Seg Neuts % (Manual) Lymphocytes % (Manual) Monocytes % (Manual) Eosinophils % (Manual) Nucleated RBC % Seg Neutrophils # Seg Neutrophils # Man Lymphocytes # (Manual) Monocytes # (Manual) Eosinophils # (Manual) PT INR APTT POC ABG pH ABG pH POC ABG pCO2 POC ABG pO2 ABG pO2 ABG HCO3 ABG O2 Saturation ABG Base Excess ABG Hemoglobin Oxyhemoglobin Sodium 147 H Potassium Chloride Carbon Dioxide BUN 70 H Creatinine 2.6 H Glucose 155 H POC Glucose 158 H Uric Acid Calcium 8.2 L Phosphorus Magnesium AST ALT Total Creatine Kinase CK-MB (CK-2) Troponin T NT-Pro-B Natriuret Pep Total Protein 6.1 L Albumin 2.5 L Triglycerides HDL Cholesterol Urine WBC (Auto) Urine Creatinine Urine Total Protein Vancomycin Trough 05/10/19 05/11/19 05/11/19 13:14 07:26 11:40 WBC RBC Hgb Hct MCV MCH MCHC RDW Lymph % (Auto) [place] % (Auto) Eos % (Auto) Lymph # [place] # Eos # Seg Neutrophils % Seg Neuts % (Manual) Lymphocytes % (Manual) Monocytes % (Manual) Eosinophils % (Manual) Nucleated RBC % Seg Neutrophils # Seg Neutrophils # Man Lymphocytes # (Manual) Monocytes # (Manual) Eosinophils # (Manual) PT INR APTT POC ABG pH ABG pH POC ABG pCO2 48.0 H POC ABG pO2 58 L ABG pO2 ABG HCO3 ABG O2 Saturation ABG Base Excess ABG Hemoglobin Oxyhemoglobin Sodium 147 H Potassium Chloride 107.2 H Carbon Dioxide BUN 67 H Creatinine 2.6 H Glucose 121 H POC Glucose 159 H Uric Acid Calcium Phosphorus Magnesium AST ALT Total Creatine Kinase CK-MB (CK-2) Troponin T NT-Pro-B Natriuret Pep Total Protein Albumin Triglycerides HDL Cholesterol Urine WBC (Auto) Urine Creatinine Urine Total Protein Vancomycin Trough 05/11/19 05/11/19 05/12/19 18:13 23:46 04:40 WBC RBC Hgb Hct MCV MCH MCHC RDW Lymph % (Auto) [place] % (Auto) Eos % (Auto) Lymph # Campbell # Eos # Seg Neutrophils % Seg Neuts % (Manual) Lymphocytes % (Manual) Monocytes % (Manual) Eosinophils % (Manual) Nucleated RBC % Seg Neutrophils # Seg Neutrophils # Man Lymphocytes # (Manual) Monocytes # (Manual) Eosinophils # (Manual) PT INR APTT POC ABG pH ABG pH 7.264 L POC ABG pCO2 POC ABG pO2 ABG pO2 66.8 L ABG HCO3 31.0 H ABG O2 Saturation 92.0 L ABG Base Excess ABG Hemoglobin 10.3 L Oxyhemoglobin 90.1 L Sodium Potassium Chloride Carbon Dioxide BUN Creatinine Glucose POC Glucose 120 H 121 H Uric Acid Calcium Phosphorus Magnesium AST ALT Total Creatine Kinase CK-MB (CK-2) Troponin T NT-Pro-B Natriuret Pep Total Protein Albumin Triglycerides HDL Cholesterol Urine WBC (Auto) Urine Creatinine Urine Total Protein Vancomycin Trough 05/12/19 05/12/19 05/12/19 04:45 04:45 11:14 WBC RBC Hgb 10.2 L Hct 32.4 L MCV MCH MCHC 31 L RDW 17.2 H Lymph % (Auto) [place] % (Auto) Eos % (Auto) Lymph # [place] # Eos # Seg Neutrophils % Seg Neuts % (Manual) Lymphocytes % (Manual) Monocytes % (Manual) Eosinophils % (Manual) Nucleated RBC % Seg Neutrophils # Seg Neutrophils # Man Lymphocytes # (Manual) Monocytes # (Manual) Eosinophils # (Manual) PT INR APTT POC ABG pH 7.284 L ABG pH POC ABG pCO2 67.8 H POC ABG pO2 ABG pO2 ABG HCO3 ABG O2 Saturation ABG Base Excess ABG Hemoglobin Oxyhemoglobin Sodium Potassium Chloride Carbon Dioxide BUN 63 H Creatinine 2.4 H Glucose 110 H POC Glucose Uric Acid Calcium Phosphorus Magnesium AST ALT Total Creatine Kinase CK-MB (CK-2) Troponin T NT-Pro-B Natriuret Pep Total Protein Albumin Triglycerides HDL Cholesterol Urine WBC (Auto) Urine Creatinine Urine Total Protein Vancomycin Trough 05/12/19 05/12/19 05/13/19 11:44 23:11 04:30 WBC RBC Hgb Hct MCV MCH MCHC RDW Lymph % (Auto) [place] % (Auto) Eos % (Auto) Lymph # [place] # Eos # Seg Neutrophils % Seg Neuts % (Manual) Lymphocytes % (Manual) Monocytes % (Manual) Eosinophils % (Manual) Nucleated RBC % Seg Neutrophils # Seg Neutrophils # Man Lymphocytes # (Manual) Monocytes # (Manual) Eosinophils # (Manual) PT INR APTT POC ABG pH ABG pH 7.288 L POC ABG pCO2 POC ABG pO2 ABG pO2 109.7 H ABG HCO3 30.9 H ABG O2 Saturation ABG Base Excess 3.2 H ABG Hemoglobin 9.6 L Oxyhemoglobin Sodium Potassium Chloride Carbon Dioxide BUN Creatinine Glucose POC Glucose 126 H 147 H Uric Acid Calcium Phosphorus Magnesium AST ALT Total Creatine Kinase CK-MB (CK-2) Troponin T NT-Pro-B Natriuret Pep Total Protein Albumin Triglycerides HDL Cholesterol Urine WBC (Auto) Urine Creatinine Urine Total Protein Vancomycin Trough 05/13/19 05/13/19 05/14/19 06:27 11:58 04:00 WBC RBC 3.16 L Hgb 9.3 L Hct 27.9 L MCV MCH MCHC RDW 17.1 H Lymph % (Auto) [place] % (Auto) Eos % (Auto) Lymph # [place] # Eos # Seg Neutrophils % Seg Neuts % (Manual) Lymphocytes % (Manual) Monocytes % (Manual) Eosinophils % (Manual) Nucleated RBC % Seg Neutrophils # Seg Neutrophils # Man Lymphocytes # (Manual) Monocytes # (Manual) Eosinophils # (Manual) PT INR APTT POC ABG pH ABG pH POC ABG pCO2 POC ABG pO2 ABG pO2 ABG HCO3 ABG O2 Saturation ABG Base Excess ABG Hemoglobin Oxyhemoglobin Sodium Potassium Chloride Carbon Dioxide BUN Creatinine Glucose POC Glucose 113 H 130 H Uric Acid Calcium Phosphorus Magnesium AST ALT Total Creatine Kinase CK-MB (CK-2) Troponin T NT-Pro-B Natriuret Pep Total Protein Albumin Triglycerides HDL Cholesterol Urine WBC (Auto) Urine Creatinine Urine Total Protein Vancomycin Trough 05/14/19 05/14/19 05/14/19 04:00 04:34 05:32 WBC RBC Hgb Hct MCV MCH MCHC RDW Lymph % (Auto) [place] % (Auto) Eos % (Auto) Lymph # [place] # Eos # Seg Neutrophils % Seg Neuts % (Manual) Lymphocytes % (Manual) Monocytes % (Manual) Eosinophils % (Manual) Nucleated RBC % Seg Neutrophils # Seg Neutrophils # Man Lymphocytes # (Manual) Monocytes # (Manual) Eosinophils # (Manual) PT INR APTT POC ABG pH 7.328 L ABG pH POC ABG pCO2 61.7 H POC ABG pO2 ABG pO2 ABG HCO3 ABG O2 Saturation ABG Base Excess ABG Hemoglobin Oxyhemoglobin Sodium 135 L D Potassium Chloride Carbon Dioxide BUN 57 H Creatinine 2.2 H Glucose 115 H POC Glucose 115 H Uric Acid Calcium 8.1 L Phosphorus Magnesium AST ALT Total Creatine Kinase CK-MB (CK-2) Troponin T NT-Pro-B Natriuret Pep Total Protein Albumin Triglycerides HDL Cholesterol Urine WBC (Auto) Urine Creatinine Urine Total Protein Vancomycin Trough 05/14/19 05/15/19 05/15/19 12:11 05:10 05:24 WBC RBC Hgb Hct MCV MCH MCHC RDW Lymph % (Auto) [place] % (Auto) Eos % (Auto) Lymph # [place] # Eos # Seg Neutrophils % Seg Neuts % (Manual) Lymphocytes % (Manual) Monocytes % (Manual) Eosinophils % (Manual) Nucleated RBC % Seg Neutrophils # Seg Neutrophils # Man Lymphocytes # (Manual) Monocytes # (Manual) Eosinophils # (Manual) PT INR APTT POC ABG pH ABG pH 7.342 L POC ABG pCO2 POC ABG pO2 ABG pO2 79.1 L ABG HCO3 28.2 H ABG O2 Saturation ABG Base Excess ABG Hemoglobin 7.0 L Oxyhemoglobin 94.4 L Sodium Potassium Chloride Carbon Dioxide BUN Creatinine Glucose POC Glucose 110 H 116 H Uric Acid Calcium Phosphorus Magnesium AST ALT Total Creatine Kinase CK-MB (CK-2) Troponin T NT-Pro-B Natriuret Pep Total Protein Albumin Triglycerides HDL Cholesterol Urine WBC (Auto) Urine Creatinine Urine Total Protein Vancomycin Trough 05/15/19 05/15/19 05/16/19 09:00 18:12 04:50 WBC RBC Hgb Hct MCV MCH MCHC RDW Lymph % (Auto) [place] % (Auto) Eos % (Auto) Lymph # [place] # Eos # Seg Neutrophils % Seg Neuts % (Manual) Lymphocytes % (Manual) Monocytes % (Manual) Eosinophils % (Manual) Nucleated RBC % Seg Neutrophils # Seg Neutrophils # Man Lymphocytes # (Manual) Monocytes # (Manual) Eosinophils # (Manual) PT INR APTT POC ABG pH ABG pH 7.250 L POC ABG pCO2 POC ABG pO2 ABG pO2 76.4 L ABG HCO3 ABG O2 Saturation 94.6 L ABG Base Excess -3.1 L ABG Hemoglobin 9.7 L Oxyhemoglobin 92.4 L Sodium Potassium Chloride Carbon Dioxide BUN Creatinine Glucose POC Glucose 110 H Uric Acid Calcium Phosphorus Magnesium AST ALT Total Creatine Kinase CK-MB (CK-2) Troponin T NT-Pro-B Natriuret Pep Total Protein Albumin Triglycerides HDL Cholesterol Urine WBC (Auto) Urine Creatinine Urine Total Protein Vancomycin Trough 20.5 H 05/16/19 05/16/19 05/17/19 05:50 05:50 04:20 WBC RBC 3.36 L 3.44 L Hgb 9.4 L 9.3 L Hct 29.1 L 29.7 L MCV MCH 27 L MCHC 31 L RDW 17.6 H 17.6 H Lymph % (Auto) [place] % (Auto) Eos % (Auto) Lymph # [place] # Eos # Seg Neutrophils % Seg Neuts % (Manual) 77.0 H Lymphocytes % (Manual) 5.0 L Monocytes % (Manual) Eosinophils % (Manual) 10.0 H Nucleated RBC % Seg Neutrophils # Seg Neutrophils # Man Lymphocytes # (Manual) 0.5 L Monocytes # (Manual) Eosinophils # (Manual) 0.9 H PT INR APTT POC ABG pH ABG pH POC ABG pCO2 POC ABG pO2 ABG pO2 ABG HCO3 ABG O2 Saturation ABG Base Excess ABG Hemoglobin Oxyhemoglobin Sodium Potassium Chloride Carbon Dioxide BUN 83 H Creatinine 4.4 H D Glucose 118 H POC Glucose Uric Acid Calcium Phosphorus Magnesium AST ALT Total Creatine Kinase CK-MB (CK-2) Troponin T NT-Pro-B Natriuret Pep Total Protein Albumin Triglycerides HDL Cholesterol Urine WBC (Auto) Urine Creatinine Urine Total Protein Vancomycin Trough 05/17/19 05/17/19 05/18/19 04:30 Unknown 01:50 WBC RBC 3.49 L Hgb 9.4 L Hct 30.0 L MCV MCH 27 L MCHC 31 L RDW 17.8 H Lymph % (Auto) 7.9 L [place] % (Auto) 15.4 H Eos % (Auto) 6.3 H Lymph # 0.7 L [place] # 1.4 H Eos # 0.6 H Seg Neutrophils % 70.2 H Seg Neuts % (Manual) Lymphocytes % (Manual) Monocytes % (Manual) Eosinophils % (Manual) Nucleated RBC % Seg Neutrophils # Seg Neutrophils # Man Lymphocytes # (Manual) Monocytes # (Manual) Eosinophils # (Manual) PT INR APTT POC ABG pH ABG pH 7.272 L POC ABG pCO2 POC ABG pO2 ABG pO2 75.7 L ABG HCO3 ABG O2 Saturation 93.8 L ABG Base Excess -3.0 L ABG Hemoglobin 7.8 L Oxyhemoglobin 91.6 L Sodium Potassium 5.2 H Chloride Carbon Dioxide BUN 96 H Creatinine 5.7 H Glucose 112 H POC Glucose Uric Acid Calcium Phosphorus Magnesium AST ALT Total Creatine Kinase CK-MB (CK-2) Troponin T NT-Pro-B Natriuret Pep Total Protein Albumin Triglycerides 173 H HDL Cholesterol Urine WBC (Auto) Urine Creatinine Urine Total Protein Vancomycin Trough 05/18/19 05/18/19 05/18/19 01:50 04:41 05:24 WBC RBC Hgb Hct MCV MCH MCHC RDW Lymph % (Auto) [place] % (Auto) Eos % (Auto) Lymph # [place] # Eos # Seg Neutrophils % Seg Neuts % (Manual) Lymphocytes % (Manual) Monocytes % (Manual) Eosinophils % (Manual) Nucleated RBC % Seg Neutrophils # Seg Neutrophils # Man Lymphocytes # (Manual) Monocytes # (Manual) Eosinophils # (Manual) PT INR APTT POC ABG pH 7.260 L ABG pH POC ABG pCO2 54.9 H POC ABG pO2 ABG pO2 ABG HCO3 ABG O2 Saturation ABG Base Excess ABG Hemoglobin Oxyhemoglobin Sodium Potassium 5.6 H Chloride Carbon Dioxide BUN 104 H Creatinine 6.6 H Glucose 107 H POC Glucose 106 H Uric Acid Calcium Phosphorus Magnesium AST ALT Total Creatine Kinase CK-MB (CK-2) Troponin T NT-Pro-B Natriuret Pep Total Protein Albumin Triglycerides HDL Cholesterol Urine WBC (Auto) Urine Creatinine Urine Total Protein Vancomycin Trough 05/18/19 05/18/19 05/19/19 11:34 23:26 04:06 WBC RBC 3.22 L Hgb 8.8 L Hct 27.3 L MCV MCH 27 L MCHC RDW 17.5 H Lymph % (Auto) [place] % (Auto) Eos % (Auto) Lymph # [place] # Eos # Seg Neutrophils % Seg Neuts % (Manual) 74.0 H Lymphocytes % (Manual) 4.0 L Monocytes % (Manual) 11.0 H Eosinophils % (Manual) 7.0 H Nucleated RBC % 1.0 H Seg Neutrophils # Seg Neutrophils # Man Lymphocytes # (Manual) 0.3 L Monocytes # (Manual) 0.9 H Eosinophils # (Manual) 0.6 H PT INR APTT POC ABG pH ABG pH POC ABG pCO2 POC ABG pO2 ABG pO2 ABG HCO3 ABG O2 Saturation ABG Base Excess ABG Hemoglobin Oxyhemoglobin Sodium Potassium Chloride Carbon Dioxide BUN Creatinine Glucose POC Glucose 152 H 112 H Uric Acid Calcium Phosphorus Magnesium AST ALT Total Creatine Kinase CK-MB (CK-2) Troponin T NT-Pro-B Natriuret Pep Total Protein Albumin Triglycerides HDL Cholesterol Urine WBC (Auto) Urine Creatinine Urine Total Protein Vancomycin Trough 05/19/19 05/19/19 05/20/19 04:06 06:00 04:00 WBC RBC 3.40 L Hgb 9.2 L Hct 28.6 L MCV MCH 27 L MCHC RDW 17.6 H Lymph % (Auto) [place] % (Auto) Eos % (Auto) Lymph # [place] # Eos # Seg Neutrophils % Seg Neuts % (Manual) Lymphocytes % (Manual) 11.0 L Monocytes % (Manual) Eosinophils % (Manual) 14.0 H Nucleated RBC % Seg Neutrophils # Seg Neutrophils # Man Lymphocytes # (Manual) 1.1 L Monocytes # (Manual) Eosinophils # (Manual) 1.4 H PT INR APTT POC ABG pH ABG pH 7.315 L POC ABG pCO2 POC ABG pO2 ABG pO2 ABG HCO3 ABG O2 Saturation ABG Base Excess ABG Hemoglobin 6.7 L Oxyhemoglobin 94.1 L Sodium Potassium 5.2 H Chloride Carbon Dioxide 21 L BUN 110 H Creatinine 7.2 H Glucose POC Glucose Uric Acid Calcium 8.3 L Phosphorus Magnesium AST ALT Total Creatine Kinase CK-MB (CK-2) Troponin T NT-Pro-B Natriuret Pep Total Protein Albumin Triglycerides HDL Cholesterol Urine WBC (Auto) Urine Creatinine Urine Total Protein Vancomycin Trough 05/20/19 05/20/19 05/20/19 04:00 05:48 12:00 WBC RBC Hgb Hct MCV MCH MCHC RDW Lymph % (Auto) [place] % (Auto) Eos % (Auto) Lymph # [place] # Eos # Seg Neutrophils % Seg Neuts % (Manual) Lymphocytes % (Manual) Monocytes % (Manual) Eosinophils % (Manual) Nucleated RBC % Seg Neutrophils # Seg Neutrophils # Man Lymphocytes # (Manual) Monocytes # (Manual) Eosinophils # (Manual) PT INR APTT POC ABG pH ABG pH 7.281 L POC ABG pCO2 POC ABG pO2 ABG pO2 78.7 L ABG HCO3 ABG O2 Saturation 94.5 L ABG Base Excess -3.0 L ABG Hemoglobin 9.9 L Oxyhemoglobin 92.5 L Sodium 136 L Potassium 5.7 H Chloride 96.3 L Carbon Dioxide BUN 125 H Creatinine 8.3 H Glucose 106 H POC Glucose Uric Acid Calcium Phosphorus Magnesium AST ALT Total Creatine Kinase CK-MB (CK-2) Troponin T NT-Pro-B Natriuret Pep Total Protein Albumin Triglycerides HDL Cholesterol Urine WBC (Auto) 26.0 H Urine Creatinine Urine Total Protein Vancomycin Trough 05/21/19 05/21/19 05/21/19 04:33 05:20 Unknown WBC RBC 3.38 L Hgb 9.1 L Hct 28.5 L MCV MCH 27 L MCHC RDW 17.4 H Lymph % (Auto) [place] % (Auto) Eos % (Auto) Lymph # [place] # Eos # Seg Neutrophils % Seg Neuts % (Manual) 71.0 H Lymphocytes % (Manual) 1.0 L Monocytes % (Manual) 11.0 H Eosinophils % (Manual) 6.0 H Nucleated RBC % Seg Neutrophils # Seg Neutrophils # Man Lymphocytes # (Manual) 0.1 L Monocytes # (Manual) 1.0 H Eosinophils # (Manual) 0.6 H PT INR APTT POC ABG pH 7.315 L ABG pH POC ABG pCO2 57.8 H POC ABG pO2 68 L ABG pO2 ABG HCO3 ABG O2 Saturation ABG Base Excess ABG Hemoglobin Oxyhemoglobin Sodium Potassium Chloride 96.3 L Carbon Dioxide BUN 102 H Creatinine 7.0 H Glucose 103 H POC Glucose Uric Acid Calcium Phosphorus Magnesium AST ALT Total Creatine Kinase CK-MB (CK-2) Troponin T NT-Pro-B Natriuret Pep Total Protein Albumin Triglycerides HDL Cholesterol Urine WBC (Auto) Urine Creatinine Urine Total Protein Vancomycin Trough 05/22/19 05/22/19 05/22/19 03:54 06:25 06:25 WBC RBC 3.22 L Hgb 8.6 L Hct 27.0 L MCV MCH 27 L MCHC RDW 17.5 H Lymph % (Auto) [place] % (Auto) 16.2 H Eos % (Auto) 10.8 H Lymph # [place] # 1.3 H Eos # 0.9 H Seg Neutrophils % Seg Neuts % (Manual) Lymphocytes % (Manual) 10.0 L Monocytes % (Manual) 13.0 H Eosinophils % (Manual) 8.0 H Nucleated RBC % Seg Neutrophils # Seg Neutrophils # Man Lymphocytes # (Manual) 0.9 L Monocytes # (Manual) 1.1 H Eosinophils # (Manual) 0.7 H PT INR APTT POC ABG pH 7.313 L ABG pH POC ABG pCO2 55.0 H POC ABG pO2 ABG pO2 ABG HCO3 ABG O2 Saturation ABG Base Excess ABG Hemoglobin Oxyhemoglobin Sodium 135 L Potassium Chloride 94.3 L Carbon Dioxide BUN 117 H Creatinine 7.8 H Glucose POC Glucose Uric Acid Calcium 8.2 L Phosphorus Magnesium AST ALT Total Creatine Kinase CK-MB (CK-2) Troponin T NT-Pro-B Natriuret Pep Total Protein Albumin Triglycerides HDL Cholesterol Urine WBC (Auto) Urine Creatinine Urine Total Protein Vancomycin Trough 05/23/19 05/24/19 05/24/19 05:21 05:00 05:00 WBC RBC 3.18 L Hgb 8.5 L Hct 26.7 L MCV MCH 27 L MCHC RDW 17.9 H Lymph % (Auto) [place] % (Auto) Eos % (Auto) Lymph # [place] # Eos # Seg Neutrophils % Seg Neuts % (Manual) Lymphocytes % (Manual) Monocytes % (Manual) Eosinophils % (Manual) Nucleated RBC % Seg Neutrophils # Seg Neutrophils # Man Lymphocytes # (Manual) Monocytes # (Manual) Eosinophils # (Manual) PT INR APTT POC ABG pH ABG pH POC ABG pCO2 49.7 H POC ABG pO2 73 L ABG pO2 ABG HCO3 ABG O2 Saturation ABG Base Excess ABG Hemoglobin Oxyhemoglobin Sodium Potassium Chloride 95.7 L Carbon Dioxide BUN 97 H Creatinine 6.5 H Glucose POC Glucose Uric Acid Calcium 8.0 L Phosphorus Magnesium AST ALT Total Creatine Kinase CK-MB (CK-2) Troponin T NT-Pro-B Natriuret Pep Total Protein Albumin Triglycerides HDL Cholesterol Urine WBC (Auto) Urine Creatinine Urine Total Protein Vancomycin Trough 05/24/19 05/25/19 05/25/19 06:17 04:22 15:45 WBC RBC 2.98 L Hgb 8.1 L Hct 24.9 L MCV MCH 27 L MCHC RDW 17.8 H Lymph % (Auto) [place] % (Auto) Eos % (Auto) Lymph # [place] # Eos # Seg Neutrophils % Seg Neuts % (Manual) Lymphocytes % (Manual) Monocytes % (Manual) Eosinophils % (Manual) Nucleated RBC % Seg Neutrophils # Seg Neutrophils # Man Lymphocytes # (Manual) Monocytes # (Manual) Eosinophils # (Manual) PT INR APTT POC ABG pH 7.330 L 7.313 L ABG pH POC ABG pCO2 52.5 H 51.1 H POC ABG pO2 77 L ABG pO2 ABG HCO3 ABG O2 Saturation ABG Base Excess ABG Hemoglobin Oxyhemoglobin Sodium Potassium Chloride Carbon Dioxide BUN Creatinine Glucose POC Glucose Uric Acid Calcium Phosphorus Magnesium AST ALT Total Creatine Kinase CK-MB (CK-2) Troponin T NT-Pro-B Natriuret Pep Total Protein Albumin Triglycerides HDL Cholesterol Urine WBC (Auto) Urine Creatinine Urine Total Protein Vancomycin Trough 05/25/19 05/26/19 05/26/19 15:45 04:13 05:00 WBC RBC 3.10 L Hgb 8.4 L Hct 26.0 L MCV MCH 27 L MCHC RDW 17.4 H Lymph % (Auto) [place] % (Auto) Eos % (Auto) Lymph # [place] # Eos # Seg Neutrophils % Seg Neuts % (Manual) Lymphocytes % (Manual) Monocytes % (Manual) Eosinophils % (Manual) Nucleated RBC % Seg Neutrophils # Seg Neutrophils # Man Lymphocytes # (Manual) Monocytes # (Manual) Eosinophils # (Manual) PT INR APTT POC ABG pH 7.295 L ABG pH POC ABG pCO2 56.5 H POC ABG pO2 63 L ABG pO2 ABG HCO3 ABG O2 Saturation ABG Base Excess ABG Hemoglobin Oxyhemoglobin Sodium 136 L Potassium Chloride 96.8 L Carbon Dioxide BUN 83 H Creatinine 5.9 H Glucose POC Glucose Uric Acid Calcium 7.6 L Phosphorus Magnesium AST ALT Total Creatine Kinase CK-MB (CK-2) Troponin T NT-Pro-B Natriuret Pep Total Protein Albumin Triglycerides HDL Cholesterol Urine WBC (Auto) Urine Creatinine Urine Total Protein Vancomycin Trough 05/26/19 05/27/19 05/28/19 05:00 04:48 04:47 WBC RBC Hgb Hct MCV MCH MCHC RDW Lymph % (Auto) [place] % (Auto) Eos % (Auto) Lymph # [place] # Eos # Seg Neutrophils % Seg Neuts % (Manual) Lymphocytes % (Manual) Monocytes % (Manual) Eosinophils % (Manual) Nucleated RBC % Seg Neutrophils # Seg Neutrophils # Man Lymphocytes # (Manual) Monocytes # (Manual) Eosinophils # (Manual) PT INR APTT POC ABG pH 7.323 L ABG pH 7.284 L POC ABG pCO2 56.2 H POC ABG pO2 ABG pO2 71.6 L ABG HCO3 ABG O2 Saturation 92.0 L ABG Base Excess ABG Hemoglobin 7.7 L Oxyhemoglobin 89.9 L Sodium 136 L Potassium Chloride 95.3 L Carbon Dioxide BUN 96 H Creatinine 6.5 H Glucose 108 H POC Glucose Uric Acid Calcium 7.6 L Phosphorus Magnesium AST ALT Total Creatine Kinase CK-MB (CK-2) Troponin T NT-Pro-B Natriuret Pep Total Protein Albumin Triglycerides HDL Cholesterol Urine WBC (Auto) Urine Creatinine Urine Total Protein Vancomycin Trough 05/28/19 05/29/19 05/29/19 12:30 12:47 23:44 WBC RBC Hgb Hct MCV MCH MCHC RDW Lymph % (Auto) [place] % (Auto) Eos % (Auto) Lymph # [place] # Eos # Seg Neutrophils % Seg Neuts % (Manual) Lymphocytes % (Manual) Monocytes % (Manual) Eosinophils % (Manual) Nucleated RBC % Seg Neutrophils # Seg Neutrophils # Man Lymphocytes # (Manual) Monocytes # (Manual) Eosinophils # (Manual) PT INR APTT POC ABG pH ABG pH POC ABG pCO2 POC ABG pO2 ABG pO2 ABG HCO3 ABG O2 Saturation ABG Base Excess ABG Hemoglobin Oxyhemoglobin Sodium 135 L Potassium Chloride 95.3 L Carbon Dioxide BUN 82 H Creatinine 6.0 H Glucose POC Glucose 136 H 159 H Uric Acid Calcium 7.5 L Phosphorus Magnesium AST ALT Total Creatine Kinase CK-MB (CK-2) Troponin T NT-Pro-B Natriuret Pep Total Protein Albumin Triglycerides HDL Cholesterol Urine WBC (Auto) Urine Creatinine Urine Total Protein Vancomycin Trough 05/30/19 05/30/19 05/30/19 04:30 05:38 12:00 WBC RBC 3.01 L Hgb 8.2 L Hct 25.3 L MCV MCH 27 L MCHC RDW 17.5 H Lymph % (Auto) [place] % (Auto) Eos % (Auto) Lymph # [place] # Eos # Seg Neutrophils % Seg Neuts % (Manual) 80.0 H Lymphocytes % (Manual) 10.0 L Monocytes % (Manual) Eosinophils % (Manual) Nucleated RBC % Seg Neutrophils # Seg Neutrophils # Man 8.0 H Lymphocytes # (Manual) 1.0 L Monocytes # (Manual) Eosinophils # (Manual) PT INR APTT POC ABG pH ABG pH POC ABG pCO2 POC ABG pO2 73 L ABG pO2 ABG HCO3 ABG O2 Saturation ABG Base Excess ABG Hemoglobin Oxyhemoglobin Sodium Potassium Chloride Carbon Dioxide BUN Creatinine Glucose POC Glucose 166 H Uric Acid Calcium Phosphorus Magnesium AST ALT Total Creatine Kinase CK-MB (CK-2) Troponin T NT-Pro-B Natriuret Pep Total Protein Albumin Triglycerides HDL Cholesterol Urine WBC (Auto) Urine Creatinine Urine Total Protein Vancomycin Trough 05/30/19 05/31/19 05/31/19 23:45 04:07 13:04 WBC 14.3 H RBC 2.88 L Hgb 7.7 L Hct 23.9 L MCV 83 L MCH 27 L MCHC RDW 17.8 H Lymph % (Auto) [place] % (Auto) Eos % (Auto) Lymph # [place] # Eos # Seg Neutrophils % Seg Neuts % (Manual) 83.0 H Lymphocytes % (Manual) 11.0 L Monocytes % (Manual) Eosinophils % (Manual) Nucleated RBC % Seg Neutrophils # Seg Neutrophils # Man 11.9 H Lymphocytes # (Manual) Monocytes # (Manual) 0.9 H Eosinophils # (Manual) PT INR APTT POC ABG pH ABG pH POC ABG pCO2 47.4 H POC ABG pO2 ABG pO2 ABG HCO3 ABG O2 Saturation ABG Base Excess ABG Hemoglobin Oxyhemoglobin Sodium Potassium Chloride Carbon Dioxide BUN Creatinine Glucose POC Glucose 209 H Uric Acid Calcium Phosphorus Magnesium AST ALT Total Creatine Kinase CK-MB (CK-2) Troponin T NT-Pro-B Natriuret Pep Total Protein Albumin Triglycerides HDL Cholesterol Urine WBC (Auto) Urine Creatinine Urine Total Protein Vancomycin Trough 05/31/19 05/31/19 06/01/19 13:04 16:42 00:15 WBC RBC Hgb Hct MCV MCH MCHC RDW Lymph % (Auto) [place] % (Auto) Eos % (Auto) Lymph # [place] # Eos # Seg Neutrophils % Seg Neuts % (Manual) Lymphocytes % (Manual) Monocytes % (Manual) Eosinophils % (Manual) Nucleated RBC % Seg Neutrophils # Seg Neutrophils # Man Lymphocytes # (Manual) Monocytes # (Manual) Eosinophils # (Manual) PT INR APTT POC ABG pH ABG pH POC ABG pCO2 POC ABG pO2 ABG pO2 ABG HCO3 ABG O2 Saturation ABG Base Excess ABG Hemoglobin Oxyhemoglobin Sodium 129 L Potassium Chloride 88.6 L Carbon Dioxide 19 L BUN 117 H Creatinine 6.7 H Glucose 205 H POC Glucose 228 H 223 H Uric Acid Calcium 7.4 L Phosphorus 7.40 H Magnesium AST 58 H ALT 149 H Total Creatine Kinase CK-MB (CK-2) Troponin T NT-Pro-B Natriuret Pep Total Protein 6.0 L Albumin 2.5 L Triglycerides HDL Cholesterol Urine WBC (Auto) Urine Creatinine Urine Total Protein Vancomycin Trough 06/01/19 06/01/19 06/01/19 04:33 05:27 12:31 WBC RBC Hgb Hct MCV MCH MCHC RDW Lymph % (Auto) [place] % (Auto) Eos % (Auto) Lymph # [place] # Eos # Seg Neutrophils % Seg Neuts % (Manual) Lymphocytes % (Manual) Monocytes % (Manual) Eosinophils % (Manual) Nucleated RBC % Seg Neutrophils # Seg Neutrophils # Man Lymphocytes # (Manual) Monocytes # (Manual) Eosinophils # (Manual) PT INR APTT POC ABG pH ABG pH POC ABG pCO2 POC ABG pO2 ABG pO2 56.9 L ABG HCO3 ABG O2 Saturation 85.9 L ABG Base Excess ABG Hemoglobin 8.1 L Oxyhemoglobin 83.6 L Sodium Potassium Chloride Carbon Dioxide BUN Creatinine Glucose POC Glucose 183 H 217 H Uric Acid Calcium Phosphorus Magnesium AST ALT Total Creatine Kinase CK-MB (CK-2) Troponin T NT-Pro-B Natriuret Pep Total Protein Albumin Triglycerides HDL Cholesterol Urine WBC (Auto) Urine Creatinine Urine Total Protein Vancomycin Trough 06/01/19 06/02/19 06/02/19 18:20 00:00 05:33 WBC RBC Hgb Hct MCV MCH MCHC RDW Lymph % (Auto) [place] % (Auto) Eos % (Auto) Lymph # [place] # Eos # Seg Neutrophils % Seg Neuts % (Manual) Lymphocytes % (Manual) Monocytes % (Manual) Eosinophils % (Manual) Nucleated RBC % Seg Neutrophils # Seg Neutrophils # Man Lymphocytes # (Manual) Monocytes # (Manual) Eosinophils # (Manual) PT INR APTT POC ABG pH ABG pH POC ABG pCO2 POC ABG pO2 ABG pO2 ABG HCO3 ABG O2 Saturation ABG Base Excess ABG Hemoglobin Oxyhemoglobin Sodium Potassium Chloride Carbon Dioxide BUN Creatinine Glucose POC Glucose 265 H 279 H 259 H Uric Acid Calcium Phosphorus Magnesium AST ALT Total Creatine Kinase CK-MB (CK-2) Troponin T NT-Pro-B Natriuret Pep Total Protein Albumin Triglycerides HDL Cholesterol Urine WBC (Auto) Urine Creatinine Urine Total Protein Vancomycin Trough 06/02/19 06/02/19 06/02/19 11:06 11:06 11:42 WBC 13.1 H RBC 2.92 L Hgb 7.9 L Hct 24.4 L MCV MCH 27 L MCHC RDW 17.4 H Lymph % (Auto) [place] % (Auto) Eos % (Auto) Lymph # [place] # Eos # Seg Neutrophils % Seg Neuts % (Manual) 78.0 H Lymphocytes % (Manual) 12.0 L Monocytes % (Manual) 10.0 H Eosinophils % (Manual) Nucleated RBC % Seg Neutrophils # Seg Neutrophils # Man 10.2 H Lymphocytes # (Manual) Monocytes # (Manual) 1.3 H Eosinophils # (Manual) PT INR APTT POC ABG pH ABG pH POC ABG pCO2 POC ABG pO2 ABG pO2 ABG HCO3 ABG O2 Saturation ABG Base Excess ABG Hemoglobin Oxyhemoglobin Sodium 135 L Potassium Chloride 94.7 L Carbon Dioxide 21 L BUN 107 H Creatinine 4.5 H Glucose 286 H POC Glucose 263 H Uric Acid Calcium 7.9 L Phosphorus 6.30 H Magnesium AST ALT 104 H Total Creatine Kinase CK-MB (CK-2) Troponin T NT-Pro-B Natriuret Pep Total Protein 6.0 L Albumin 2.7 L Triglycerides HDL Cholesterol Urine WBC (Auto) Urine Creatinine Urine Total Protein Vancomycin Trough 06/02/19 06/02/19 06/03/19 18:17 23:55 05:30 WBC RBC Hgb Hct MCV MCH MCHC RDW Lymph % (Auto) Campbell % (Auto) Eos % (Auto) Lymph # Campbell # Eos # Seg Neutrophils % Seg Neuts % (Manual) Lymphocytes % (Manual) Monocytes % (Manual) Eosinophils % (Manual) Nucleated RBC % Seg Neutrophils # Seg Neutrophils # Man Lymphocytes # (Manual) Monocytes # (Manual) Eosinophils # (Manual) PT INR APTT POC ABG pH ABG pH POC ABG pCO2 POC ABG pO2 ABG pO2 ABG HCO3 ABG O2 Saturation ABG Base Excess ABG Hemoglobin Oxyhemoglobin Sodium Potassium Chloride 95.1 L Carbon Dioxide 21 L BUN 119 H Creatinine 4.1 H Glucose 330 H POC Glucose 276 H 244 H Uric Acid Calcium 8.1 L Phosphorus Magnesium AST ALT 98 H Total Creatine Kinase CK-MB (CK-2) Troponin T NT-Pro-B Natriuret Pep Total Protein 5.8 L Albumin 2.8 L Triglycerides HDL Cholesterol Urine WBC (Auto) Urine Creatinine Urine Total Protein Vancomycin Trough 06/03/19 06/03/19 06/03/19 05:30 06:04 09:42 WBC 12.8 H RBC 3.01 L Hgb 8.2 L Hct 25.4 L MCV MCH 27 L MCHC RDW 17.5 H Lymph % (Auto) Campbell % (Auto) Eos % (Auto) Lymph # Campbell # Eos # Seg Neutrophils % Seg Neuts % (Manual) 78.0 H Lymphocytes % (Manual) 10.0 L Monocytes % (Manual) 12.0 H Eosinophils % (Manual) Nucleated RBC % Seg Neutrophils # Seg Neutrophils # Man 10.0 H Lymphocytes # (Manual) Monocytes # (Manual) 1.5 H Eosinophils # (Manual) PT INR APTT POC ABG pH ABG pH POC ABG pCO2 POC ABG pO2 ABG pO2 ABG HCO3 ABG O2 Saturation ABG Base Excess ABG Hemoglobin Oxyhemoglobin Sodium Potassium Chloride Carbon Dioxide BUN 106 H Creatinine Glucose POC Glucose 254 H Uric Acid Calcium Phosphorus Magnesium AST ALT Total Creatine Kinase CK-MB (CK-2) Troponin T NT-Pro-B Natriuret Pep Total Protein Albumin Triglycerides HDL Cholesterol Urine WBC (Auto) Urine Creatinine Urine Total Protein Vancomycin Trough 06/03/19 06/03/19 06/03/19 12:52 17:25 23:37 WBC RBC Hgb Hct MCV MCH MCHC RDW Lymph % (Auto) Campbell % (Auto) Eos % (Auto) Lymph # Campbell # Eos # Seg Neutrophils % Seg Neuts % (Manual) Lymphocytes % (Manual) Monocytes % (Manual) Eosinophils % (Manual) Nucleated RBC % Seg Neutrophils # Seg Neutrophils # Man Lymphocytes # (Manual) Monocytes # (Manual) Eosinophils # (Manual) PT INR APTT POC ABG pH ABG pH POC ABG pCO2 POC ABG pO2 ABG pO2 ABG HCO3 ABG O2 Saturation ABG Base Excess ABG Hemoglobin Oxyhemoglobin Sodium Potassium Chloride Carbon Dioxide BUN Creatinine Glucose POC Glucose 274 H 285 H 310 H Uric Acid Calcium Phosphorus Magnesium AST ALT Total Creatine Kinase CK-MB (CK-2) Troponin T NT-Pro-B Natriuret Pep Total Protein Albumin Triglycerides HDL Cholesterol Urine WBC (Auto) Urine Creatinine Urine Total Protein Vancomycin Trough 06/04/19 06/04/19 06/04/19 04:57 05:03 11:50 WBC RBC Hgb Hct MCV MCH MCHC RDW Lymph % (Auto) Campbell % (Auto) Eos % (Auto) Lymph # Campbell # Eos # Seg Neutrophils % Seg Neuts % (Manual) Lymphocytes % (Manual) Monocytes % (Manual) Eosinophils % (Manual) Nucleated RBC % Seg Neutrophils # Seg Neutrophils # Man Lymphocytes # (Manual) Monocytes # (Manual) Eosinophils # (Manual) PT INR APTT POC ABG pH 7.488 H ABG pH POC ABG pCO2 POC ABG pO2 ABG pO2 ABG HCO3 ABG O2 Saturation ABG Base Excess ABG Hemoglobin Oxyhemoglobin Sodium Potassium Chloride Carbon Dioxide BUN Creatinine Glucose POC Glucose 275 H 279 H Uric Acid Calcium Phosphorus Magnesium AST ALT Total Creatine Kinase CK-MB (CK-2) Troponin T NT-Pro-B Natriuret Pep Total Protein Albumin Triglycerides HDL Cholesterol Urine WBC (Auto) Urine Creatinine Urine Total Protein Vancomycin Trough 06/04/19 06/04/19 06/04/19 18:32 22:03 23:55 WBC RBC Hgb Hct MCV MCH MCHC RDW Lymph % (Auto) Campbell % (Auto) Eos % (Auto) Lymph # Campbell # Eos # Seg Neutrophils % Seg Neuts % (Manual) Lymphocytes % (Manual) Monocytes % (Manual) Eosinophils % (Manual) Nucleated RBC % Seg Neutrophils # Seg Neutrophils # Man Lymphocytes # (Manual) Monocytes # (Manual) Eosinophils # (Manual) PT INR APTT POC ABG pH ABG pH POC ABG pCO2 POC ABG pO2 ABG pO2 ABG HCO3 ABG O2 Saturation ABG Base Excess ABG Hemoglobin Oxyhemoglobin Sodium Potassium Chloride Carbon Dioxide BUN Creatinine Glucose POC Glucose 267 H 307 H 292 H Uric Acid Calcium Phosphorus Magnesium AST ALT Total Creatine Kinase CK-MB (CK-2) Troponin T NT-Pro-B Natriuret Pep Total Protein Albumin Triglycerides HDL Cholesterol Urine WBC (Auto) Urine Creatinine Urine Total Protein Vancomycin Trough 06/05/19 06/05/19 06/05/19 03:52 06:41 12:29 WBC RBC Hgb Hct MCV MCH MCHC RDW Lymph % (Auto) Campbell % (Auto) Eos % (Auto) Lymph # [place] # Eos # Seg Neutrophils % Seg Neuts % (Manual) Lymphocytes % (Manual) Monocytes % (Manual) Eosinophils % (Manual) Nucleated RBC % Seg Neutrophils # Seg Neutrophils # Man Lymphocytes # (Manual) Monocytes # (Manual) Eosinophils # (Manual) PT INR APTT POC ABG pH 7.462 H ABG pH POC ABG pCO2 POC ABG pO2 ABG pO2 ABG HCO3 ABG O2 Saturation ABG Base Excess ABG Hemoglobin Oxyhemoglobin Sodium Potassium Chloride Carbon Dioxide BUN Creatinine Glucose POC Glucose 369 H 265 H Uric Acid Calcium Phosphorus Magnesium AST ALT Total Creatine Kinase CK-MB (CK-2) Troponin T NT-Pro-B Natriuret Pep Total Protein Albumin Triglycerides HDL Cholesterol Urine WBC (Auto) Urine Creatinine Urine Total Protein Vancomycin Trough 06/05/19 06/05/19 06/05/19 18:20 21:42 23:21 WBC RBC Hgb Hct MCV MCH MCHC RDW Lymph % (Auto) Campbell % (Auto) Eos % (Auto) Lymph # [place] # Eos # Seg Neutrophils % Seg Neuts % (Manual) Lymphocytes % (Manual) Monocytes % (Manual) Eosinophils % (Manual) Nucleated RBC % Seg Neutrophils # Seg Neutrophils # Man Lymphocytes # (Manual) Monocytes # (Manual) Eosinophils # (Manual) PT INR APTT POC ABG pH ABG pH POC ABG pCO2 POC ABG pO2 ABG pO2 ABG HCO3 ABG O2 Saturation ABG Base Excess ABG Hemoglobin Oxyhemoglobin Sodium Potassium Chloride Carbon Dioxide BUN Creatinine Glucose POC Glucose 249 H 246 H 274 H Uric Acid Calcium Phosphorus Magnesium AST ALT Total Creatine Kinase CK-MB (CK-2) Troponin T NT-Pro-B Natriuret Pep Total Protein Albumin Triglycerides HDL Cholesterol Urine WBC (Auto) Urine Creatinine Urine Total Protein Vancomycin Trough 06/06/19 06/06/19 06/06/19 04:00 05:49 11:34 WBC 18.1 H RBC 3.53 L Hgb 9.5 L Hct 30.3 L MCV MCH 27 L MCHC 31 L RDW 19.5 H Lymph % (Auto) Campbell % (Auto) Eos % (Auto) Lymph # Campbell # Eos # Seg Neutrophils % Seg Neuts % (Manual) 87.0 H Lymphocytes % (Manual) 3.0 L Monocytes % (Manual) 8.0 H Eosinophils % (Manual) Nucleated RBC % Seg Neutrophils # Seg Neutrophils # Man 15.7 H Lymphocytes # (Manual) 0.5 L Monocytes # (Manual) 1.4 H Eosinophils # (Manual) PT INR APTT POC ABG pH ABG pH 7.472 H POC ABG pCO2 POC ABG pO2 ABG pO2 76.4 L ABG HCO3 28.1 H ABG O2 Saturation ABG Base Excess 4.3 H ABG Hemoglobin 12.5 L Oxyhemoglobin 93.8 L Sodium Potassium Chloride Carbon Dioxide BUN Creatinine Glucose POC Glucose 340 H Uric Acid Calcium Phosphorus Magnesium AST ALT Total Creatine Kinase CK-MB (CK-2) Troponin T NT-Pro-B Natriuret Pep Total Protein Albumin Triglycerides HDL Cholesterol Urine WBC (Auto) Urine Creatinine Urine Total Protein Vancomycin Trough 06/06/19 06/06/19 06/06/19 11:34 12:11 18:10 WBC RBC Hgb Hct MCV MCH MCHC RDW Lymph % (Auto) Campbell % (Auto) Eos % (Auto) Lymph # [place] # Eos # Seg Neutrophils % Seg Neuts % (Manual) Lymphocytes % (Manual) Monocytes % (Manual) Eosinophils % (Manual) Nucleated RBC % Seg Neutrophils # Seg Neutrophils # Man Lymphocytes # (Manual) Monocytes # (Manual) Eosinophils # (Manual) PT INR APTT POC ABG pH ABG pH POC ABG pCO2 POC ABG pO2 ABG pO2 ABG HCO3 ABG O2 Saturation ABG Base Excess ABG Hemoglobin Oxyhemoglobin Sodium Potassium Chloride Carbon Dioxide BUN 70 H Creatinine Glucose 310 H POC Glucose 283 H 301 H Uric Acid Calcium 8.3 L Phosphorus 4.60 H Magnesium AST ALT 75 H Total Creatine Kinase CK-MB (CK-2) Troponin T NT-Pro-B Natriuret Pep Total Protein 5.6 L Albumin 2.9 L Triglycerides HDL Cholesterol Urine WBC (Auto) Urine Creatinine Urine Total Protein Vancomycin Trough 06/06/19 06/06/19 06/07/19 22:21 23:16 04:30 WBC RBC Hgb Hct MCV MCH MCHC RDW Lymph % (Auto) Campbell % (Auto) Eos % (Auto) Lymph # [place] # Eos # Seg Neutrophils % Seg Neuts % (Manual) Lymphocytes % (Manual) Monocytes % (Manual) Eosinophils % (Manual) Nucleated RBC % Seg Neutrophils # Seg Neutrophils # Man Lymphocytes # (Manual) Monocytes # (Manual) Eosinophils # (Manual) PT INR APTT POC ABG pH ABG pH 7.480 H POC ABG pCO2 POC ABG pO2 ABG pO2 77.0 L ABG HCO3 27.2 H ABG O2 Saturation ABG Base Excess 3.5 H ABG Hemoglobin 7.1 L Oxyhemoglobin 94.2 L Sodium Potassium Chloride Carbon Dioxide BUN Creatinine Glucose POC Glucose 289 H 343 H Uric Acid Calcium Phosphorus Magnesium AST ALT Total Creatine Kinase CK-MB (CK-2) Troponin T NT-Pro-B Natriuret Pep Total Protein Albumin Triglycerides HDL Cholesterol Urine WBC (Auto) Urine Creatinine Urine Total Protein Vancomycin Trough 06/07/19 06/07/19 06/07/19 05:15 12:52 18:41 WBC RBC Hgb Hct MCV MCH MCHC RDW Lymph % (Auto) Campbell % (Auto) Eos % (Auto) Lymph # [place] # Eos # Seg Neutrophils % Seg Neuts % (Manual) Lymphocytes % (Manual) Monocytes % (Manual) Eosinophils % (Manual) Nucleated RBC % Seg Neutrophils # Seg Neutrophils # Man Lymphocytes # (Manual) Monocytes # (Manual) Eosinophils # (Manual) PT INR APTT POC ABG pH ABG pH POC ABG pCO2 POC ABG pO2 ABG pO2 ABG HCO3 ABG O2 Saturation ABG Base Excess ABG Hemoglobin Oxyhemoglobin Sodium Potassium Chloride Carbon Dioxide BUN Creatinine Glucose POC Glucose 307 H 226 H 187 H Uric Acid Calcium Phosphorus Magnesium AST ALT Total Creatine Kinase CK-MB (CK-2) Troponin T NT-Pro-B Natriuret Pep Total Protein Albumin Triglycerides HDL Cholesterol Urine WBC (Auto) Urine Creatinine Urine Total Protein Vancomycin Trough 06/07/19 06/07/19 06/08/19 22:54 23:46 04:20 WBC 16.0 H RBC Hgb 10.0 L Hct 32.1 L MCV MCH 27 L MCHC 31 L RDW 19.4 H Lymph % (Auto) [place] % (Auto) Eos % (Auto) Lymph # [place] # Eos # Seg Neutrophils % Seg Neuts % (Manual) 87.0 H Lymphocytes % (Manual) 7.0 L Monocytes % (Manual) Eosinophils % (Manual) Nucleated RBC % Seg Neutrophils # Seg Neutrophils # Man 13.9 H Lymphocytes # (Manual) 1.1 L Monocytes # (Manual) 1.0 H Eosinophils # (Manual) PT INR APTT POC ABG pH ABG pH POC ABG pCO2 POC ABG pO2 ABG pO2 ABG HCO3 ABG O2 Saturation ABG Base Excess ABG Hemoglobin Oxyhemoglobin Sodium Potassium Chloride Carbon Dioxide BUN Creatinine Glucose POC Glucose 199 H 172 H Uric Acid Calcium Phosphorus Magnesium AST ALT Total Creatine Kinase CK-MB (CK-2) Troponin T NT-Pro-B Natriuret Pep Total Protein Albumin Triglycerides HDL Cholesterol Urine WBC (Auto) Urine Creatinine Urine Total Protein Vancomycin Trough 06/08/19 06/08/19 06/08/19 04:20 05:15 11:31 WBC RBC Hgb Hct MCV MCH MCHC RDW Lymph % (Auto) [place] % (Auto) Eos % (Auto) Lymph # [place] # Eos # Seg Neutrophils % Seg Neuts % (Manual) Lymphocytes % (Manual) Monocytes % (Manual) Eosinophils % (Manual) Nucleated RBC % Seg Neutrophils # Seg Neutrophils # Man Lymphocytes # (Manual) Monocytes # (Manual) Eosinophils # (Manual) PT INR APTT POC ABG pH ABG pH POC ABG pCO2 POC ABG pO2 ABG pO2 ABG HCO3 ABG O2 Saturation ABG Base Excess ABG Hemoglobin Oxyhemoglobin Sodium 146 H D Potassium Chloride Carbon Dioxide BUN 77 H Creatinine Glucose 205 H POC Glucose 209 H 181 H Uric Acid Calcium Phosphorus Magnesium AST ALT 66 H Total Creatine Kinase CK-MB (CK-2) Troponin T NT-Pro-B Natriuret Pep Total Protein 5.5 L Albumin 2.9 L Triglycerides HDL Cholesterol Urine WBC (Auto) Urine Creatinine Urine Total Protein Vancomycin Trough 06/08/19 06/08/19 06/09/19 17:28 23:24 05:20 WBC RBC Hgb Hct MCV MCH MCHC RDW Lymph % (Auto) Campbell % (Auto) Eos % (Auto) Lymph # [place] # Eos # Seg Neutrophils % Seg Neuts % (Manual) Lymphocytes % (Manual) Monocytes % (Manual) Eosinophils % (Manual) Nucleated RBC % Seg Neutrophils # Seg Neutrophils # Man Lymphocytes # (Manual) Monocytes # (Manual) Eosinophils # (Manual) PT INR APTT POC ABG pH ABG pH POC ABG pCO2 POC ABG pO2 ABG pO2 ABG HCO3 ABG O2 Saturation ABG Base Excess ABG Hemoglobin Oxyhemoglobin Sodium Potassium Chloride Carbon Dioxide BUN Creatinine Glucose POC Glucose 215 H 200 H 173 H Uric Acid Calcium Phosphorus Magnesium AST ALT Total Creatine Kinase CK-MB (CK-2) Troponin T NT-Pro-B Natriuret Pep Total Protein Albumin Triglycerides HDL Cholesterol Urine WBC (Auto) Urine Creatinine Urine Total Protein Vancomycin Trough
[2019-06-09] MEDS ORDERED: SCOPOLAMINE TRANSDERMAL PATCH 72 HR TD SCH (16:00)
--- NOTE | 2019-06-09 16:55 | Progress Note ---
Assessment and Plan # Acute kidney injury on HD: creatinine had worsened, potentially from vancomycin toxicity, now HD dependent. Initially with suspected tubular injury in setting of sepsis, respiratory failure, hypotension. He is making urine now so hopeful for renal recovery; will follow labs/urine output for renal recovery - plan to continue HD //Sa or prn; will assess in AM, trend labs and urine output and hold off HD if able - continue to assess for renal recovery with strict Is/Os - continue supportive measures, appreciate pulm and ID input - avoid nephrotoxins - appreciate vascular assistance with vas-cath placement - daily labs # HTN: BP remains high, continue current management. Will consider diuretic challenge if labs are relatively stable tomorrow or UF with HD as tolerated # Anemia: hemoglobin 9.5, pRBC transfusion prn. Continue ESAs with HD # Encephalopathy, seizure disorder, hypoxic respiratory failure, fevers: ID and pulm following, improving We'll continue to follow and make recommendation from renal standpoint for this critically ill patient; we appreciate the opportunity to assist in his care. Subjective Date of service: 06/09/19 Principal diagnosis: HF; acute hypoxemic resp failure, SIRS, CARLA Interval history: No acute issues noted. Remains more alert and follows basic commands Objective - Exam Narrative Exam: General: No acute distress. Alert but not oriented. Obese HEENT: NC/AT Neck: Supple Chest: decreased breath sounds Heart: Regular rate and rhythm Abdomen: Soft nontender Extremity: no edema Psych: no agitation Neuro: follows basic commands Derm: No petechial rash - Vital Signs Vital signs: Vital Signs - 12hr 06/09/19 06/09/19 06/09/19 05:00 05:07 05:31 Temperature Pulse Rate 109 H 100 H 114 H Pulse Rate [ From Monitor] Respiratory 12 21 Rate Blood Pressure 153/85 183/90 153/85 O2 Sat by Pulse 84 95 Oximetry 06/09/19 06/09/19 06/09/19 07:00 07:31 08:00 Temperature 98.9 F Pulse Rate 111 H 105 H 105 H Pulse Rate [ 105 H From Monitor] Respiratory 19 18 12 Rate Blood Pressure 162/70 155/67 O2 Sat by Pulse 92 95 97 Oximetry 06/09/19 06/09/19 06/09/19 08:01 08:24 08:31 Temperature Pulse Rate 105 H 102 H 91 H Pulse Rate [ From Monitor] Respiratory 12 18 Rate Blood Pressure 155/67 212/105 212/105 O2 Sat by Pulse 97 96 Oximetry 06/09/19 06/09/19 06/09/19 08:46 09:01 09:31 Temperature Pulse Rate 91 H 95 H 97 H Pulse Rate [ From Monitor] Respiratory 20 16 17 Rate Blood Pressure 193/98 193/98 178/89 O2 Sat by Pulse 97 95 96 Oximetry 06/09/19 06/09/19 06/09/19 10:01 10:31 10:40 Temperature Pulse Rate 98 H 99 H 107 H Pulse Rate [ From Monitor] Respiratory 23 21 Rate Blood Pressure 178/89 178/89 189/93 O2 Sat by Pulse 93 80 L Oximetry 06/09/19 06/09/19 06/09/19 11:01 11:30 12:00 Temperature 98.6 F Pulse Rate 100 H 98 H 99 H Pulse Rate [ 99 H From Monitor] Respiratory 12 18 15 Rate Blood Pressure 167/83 178/89 O2 Sat by Pulse 97 98 95 Oximetry 06/09/19 06/09/19 06/09/19 12:01 12:31 12:51 Temperature Pulse Rate 99 H 97 H 96 H Pulse Rate [ From Monitor] Respiratory 15 14 Rate Blood Pressure 178/89 167/83 190/99 O2 Sat by Pulse 95 97 Oximetry 06/09/19 06/09/19 06/09/19 12:54 13:01 13:31 Temperature Pulse Rate 92 H 90 90 Pulse Rate [ From Monitor] Respiratory 20 14 16 Rate Blood Pressure 190/99 182/92 O2 Sat by Pulse 96 95 97 Oximetry 06/09/19 14:01 Temperature Pulse Rate 92 H Pulse Rate [ From Monitor] Respiratory 12 Rate Blood Pressure 182/92 O2 Sat by Pulse 96 Oximetry - Lab 06/08/19 04:20 06/08/19 04:20 Most recent lab results ABG pH 7.480 pH Units (7.350-7.450) H 06/07/19 04:30 ABG pCO2 37.4 mm Hg 06/07/19 04:30 ABG pO2 77.0 mm Hg (80.0-90.0) L 06/07/19 04:30 ABG HCO3 27.2 mmol/L (20.0-26.0) H 06/07/19 04:30 ABG O2 Saturation 96.7 % (95.0-99.0) 06/07/19 04:30 Calcium 8.6 mg/dL (8.4-10.2) 06/08/19 04:20 Phosphorus 4.60 mg/dL (2.5-4.5) H 06/06/19 11:34 Magnesium 1.90 mg/dL (1.7-2.3) 05/31/19 13:04 Urine Creatinine 292.8 mg/dL (0.1-20.0) H 05/07/19 22:40 Urine Sodium 11 mmol/L 05/07/19 22:40 Urine Total Protein 269 mg/dL (5-11.8) H 05/07/19 22:40 Medications & Allergies - Medications Allergies/Adverse Reactions: Allergies No Known Allergies Allergy (Verified 05/01/19 20:27) Home Medications: Home Medications Medication Instructions Recorded Confirmed Last Taken Type No Known Home Medications [No 05/03/19 05/03/19 Unknown History Reported Home Medications] Active Medications: Generic Name Dose Route Start Last Admin Trade Name Freq PRN Reason Stop Dose Admin Albumin Human 25 gm 05/19/19 10:47 Alburx 25% (Albumin) IV ARIANE PRN Hypotension Lipase/Protease/Amylase 1 each 05/14/19 15:01 Pancreaze 10,500 Unit FEEDTUBE PRN PRN For Clogged Feeding Tube Clonidine HCl 0.3 mg 06/06/19 20:00 06/06/19 20:38 Catapres-Tts Patch TD 0.3 mg Lao VICKEY Administration Dextrose 50 gm 05/01/19 20:24 D50w (25gm) Vial IV Q30MIN PRN Hypoglycemia Protocol Enoxaparin Sodium 30 mg 05/16/19 10:00 06/09/19 10:00 Enoxaparin SUB-Q 30 mg QDAY VICKEY Administration Epoetin Hugo 10,000 unit 05/19/19 10:47 06/03/19 11:49 Procrit IV 10,000 unit ARIANE PRN Administration hemodialysis Famotidine 20 mg 05/16/19 10:00 06/09/19 10:00 Pepcid PO Not Given DAILY VICKEY Hydralazine HCl 20 mg 05/13/19 08:09 06/09/19 10:40 Apresoline IV 20 mg Q4HR PRN Administration SBP >/=160 Sodium Chloride 100 mls @ 999 mls/hr 06/08/19 11:42 Nacl 0.9% IV ARIANE PRN Hypotension Insulin Glargine 20 units 06/07/19 22:00 06/08/19 21:09 Lantus SUB-Q 20 units QHS VICKEY Administration Insulin Human Lispro 0 unit 06/01/19 14:00 06/09/19 10:00 Humalog SUB-Q Not Given Q6HR [facility] Protocol Labetalol HCl 10 mg 06/08/19 17:20 06/09/19 12:51 Labetalol IV 10 mg Q4H PRN Administration BP >170/105; hold for HR <60 Levetiracetam 750 mg 05/13/19 10:00 06/09/19 10:00 Keppra PO Not Given BID [facility] Methylprednisolone Sodium Succinate 60 mg 06/08/19 14:00 06/09/19 13:25 Solu-Medrol IV 60 mg Q8HR VICKEY Administration Minoxidil 2.5 mg 06/06/19 22:00 06/09/19 10:00 Loniten PO Not Given BID [facility] Scopolamine 1 each 06/09/19 16:00 Transderm-Scop TD Q72H [facility] Simple Syrup 15 ml 05/14/19 15:01 Simple Syrup FEEDTUBE PRN PRN Hypoglycemia Simple Syrup 30 ml 05/14/19 15:01 Simple Syrup FEEDTUBE PRN PRN Hypoglycemia Sodium Bicarbonate 325 mg 05/14/19 15:01 Sodium Bicarbonate FEEDTUBE PRN PRN For Clogged Feeding Tube
[2019-06-09] MEDS: levETIRAcetam 750 MG in DEXTROSE 5% IN WATER 100 ML IV SCH (21:49)
[2019-06-09] MEDS: INSULIN GLARGINE 100 UNITS/ML SUB-Q SCH (21:51)
[2019-06-10 06:15] LABS: Basophils % (Auto) 0.2 % (0.0-1.8); Hematocrit 32.2 % (35.5-45.6); Hemoglobin 9.9 gm/dl (11.8-15.2); Lymphocytes # (Auto) 1.5 K/mm3 (1.2-5.4); Lymphocytes % (Auto) 10.5 % (13.4-35.0); Mean Corpuscular HGB Conc 31 % (32-34); Mean Corpuscular Volume 88 fl (84-94); Monocytes # (Auto) 1.4 K/mm3 (0.0-0.8); Monocytes % (Auto) 9.4 % (0.0-7.3); Platelet Count 206 K/mm3 (140-440); Red Blood Count 3.67 M/mm3 (3.65-5.03); Red Cell Distribution Width 19.6 % (13.2-15.2)
[2019-06-10 06:34] LABS: BUN/Creatinine Ratio 54; Blood Urea Nitrogen 49 mg/dL (9-20); Calcium 8.8 mg/dL (8.4-10.2)
[2019-06-10 06:35] LABS: Hemolysis Index 2
[2019-06-10] MEDS: MINOXIDIL 2.5 MG TAB PO SCH ×3 (06:44→22:36)
[2019-06-10] MEDS: INSULIN LISPRO 100 UNIT/ML SUB-Q SCH ×4 (06:45→18:07)
[2019-06-10] MEDS: methylPREDNISolone Sod Succinate 40 MG/1 ML INJ IV SCH ×3 (06:47→22:32)
--- NOTE | 2019-06-10 10:37 | Progress Note ---
Assessment and Plan 34 y/o male with acute hypoxic, hypercapnic respiratory failure currently ventilated and sedated, now with persistent fevers and seizure and on HD 06/10/2019: Bipap at night and PRN. Na levels are increasing. Agree with D5W. Asked nursing to place DH tube and nutrition consult as he is still NPO based on speech notes. They will need to reassess, likely tomorrow or sometime next week. Continue PT/OT. Continue IMCU monitoring for now. As stated below, patient was intubated for 37 days. 2. 37 days of intubation. Extubated on 06/07/2019 Subjective Date of service: 06/10/19 Principal diagnosis: HF; acute hypoxemic resp failure, SIRS, CARLA Interval history: Patient awake and alert. Assisted in sitting up on side of bed. This for about 5-7 minutes. Stable vitals. Then assisted in lying back down. Patient not in respiratory distress. Satting well on cannula. Wore bipap last night and did well Objective Vital Signs - 12hr 06/09/19 06/09/19 06/09/19 22:56 23:01 23:03 Temperature Pulse Rate 95 H 97 H 97 H Pulse Rate [ From Monitor] Respiratory 22 16 21 Rate Blood Pressure 177/80 177/80 177/80 O2 Sat by Pulse 97 97 97 Oximetry 06/09/19 06/10/19 06/10/19 23:31 00:00 00:31 Temperature 100.1 F H Pulse Rate 99 H 101 H 98 H Pulse Rate [ 97 H From Monitor] Respiratory 23 22 24 Rate Blood Pressure 160/83 148/91 148/91 O2 Sat by Pulse 97 96 96 Oximetry 06/10/19 06/10/19 06/10/19 01:00 01:31 02:00 Temperature Pulse Rate 100 H 102 H 99 H Pulse Rate [ From Monitor] Respiratory 25 H 26 H 23 Rate Blood Pressure 143/83 143/83 161/82 O2 Sat by Pulse 89 97 96 Oximetry 06/10/19 06/10/19 06/10/19 02:08 02:31 03:00 Temperature Pulse Rate 100 H 96 H 105 H Pulse Rate [ From Monitor] Respiratory 22 24 24 Rate Blood Pressure 161/82 175/80 156/78 O2 Sat by Pulse 97 93 96 Oximetry 06/10/19 06/10/19 06/10/19 03:31 03:46 04:00 Temperature 100.3 F H Pulse Rate 106 H 103 H Pulse Rate [ 111 H From Monitor] Respiratory 23 22 Rate Blood Pressure 156/78 139/83 O2 Sat by Pulse 95 96 Oximetry 06/10/19 06/10/19 04:31 08:45 Temperature Pulse Rate 108 H Pulse Rate [ From Monitor] Respiratory 21 Rate Blood Pressure 156/78 O2 Sat by Pulse 96 96 Oximetry Constitutional: no acute distress, other (morbidly obese male, on vent, orally intubated) Eyes: non-icteric ENT: oropharynx moist Neck: other (extremely large in circumference) Effort: normal Ascultation: Bilateral: diminished breath sounds (secondary to body habitus) Cardiovascular: regular rate and rhythm (no mrg) Gastrointestinal: normoactive bowel sounds, non-tender, other (obese) Integumentary: other (L hand is wrapped) Extremities: no cyanosis, pink and warm, other (1+ generalized edema) Neurologic: unable to assess Psychiatric: other (unable to assess) CBC and BMP: 06/10/19 05:45 06/10/19 05:45 ABG, PT/INR, D-dimer: ABG POC ABG pH 7.462 (7.35-7.45) H 06/05/19 03:52 ABG pH 7.480 pH Units (7.350-7.450) H 06/07/19 04:30 POC ABG pCO2 39.8 (35-45) 06/05/19 03:52 ABG pCO2 37.4 mm Hg 06/07/19 04:30 POC ABG pO2 86 (80-105) 06/05/19 03:52 ABG pO2 77.0 mm Hg (80.0-90.0) L 06/07/19 04:30 POC ABG HCO3 28.4 (22-26 mml/L) 06/05/19 03:52 POC ABG Total CO2 30 (23-27mmol/L) 06/05/19 03:52 POC ABG O2 Sat 97 06/05/19 03:52 ABG O2 Saturation 96.7 % (95.0-99.0) 06/07/19 04:30 PT/INR, D-dimer PT 15.4 Sec. (12.2-14.9) H 05/01/19 Unknown INR 1.23 (0.87-1.13) H 05/01/19 Unknown Abnormal lab findings: Abnormal Labs 05/01/19 05/01/19 05/01/19 17:50 19:26 22:36 WBC RBC Hgb Hct MCV MCH MCHC RDW Lymph % (Auto) Mason % (Auto) Eos % (Auto) Lymph # Mason # Eos # Seg Neutrophils % Seg Neuts % (Manual) Lymphocytes % (Manual) Monocytes % (Manual) Eosinophils % (Manual) Nucleated RBC % Seg Neutrophils # Seg Neutrophils # Man Lymphocytes # (Manual) Monocytes # (Manual) Eosinophils # (Manual) PT INR APTT POC ABG pH 7.272 L 7.331 L ABG pH POC ABG pCO2 52.8 H POC ABG pO2 ABG pO2 ABG HCO3 ABG O2 Saturation ABG Base Excess ABG Hemoglobin Oxyhemoglobin Sodium 136 L Potassium 6.5 H* Chloride 97.2 L Carbon Dioxide BUN 60 H Creatinine Glucose 113 H POC Glucose Uric Acid Calcium Phosphorus Magnesium 2.40 H AST 139 H ALT 154 H Total Creatine Kinase CK-MB (CK-2) Troponin T NT-Pro-B Natriuret Pep Total Protein Albumin 3.8 L Triglycerides HDL Cholesterol Urine WBC (Auto) Urine Creatinine Urine Total Protein Vancomycin Trough 05/01/19 05/01/19 05/01/19 Unknown Unknown Unknown WBC 16.1 H RBC Hgb Hct MCV MCH MCHC RDW 17.2 H Lymph % (Auto) Mason % (Auto) 9.6 H Eos % (Auto) Lymph # Mason # 1.5 H Eos # Seg Neutrophils % 73.0 H Seg Neuts % (Manual) Lymphocytes % (Manual) Monocytes % (Manual) Eosinophils % (Manual) Nucleated RBC % Seg Neutrophils # 11.7 H Seg Neutrophils # Man Lymphocytes # (Manual) Monocytes # (Manual) Eosinophils # (Manual) PT 15.4 H INR 1.23 H APTT 22.7 L POC ABG pH ABG pH POC ABG pCO2 POC ABG pO2 ABG pO2 ABG HCO3 ABG O2 Saturation ABG Base Excess ABG Hemoglobin Oxyhemoglobin Sodium Potassium Chloride Carbon Dioxide BUN Creatinine Glucose POC Glucose Uric Acid Calcium Phosphorus Magnesium AST ALT Total Creatine Kinase CK-MB (CK-2) Troponin T NT-Pro-B Natriuret Pep 6831 H Total Protein Albumin Triglycerides HDL Cholesterol Urine WBC (Auto) Urine Creatinine Urine Total Protein Vancomycin Trough 05/01/19 05/02/19 05/02/19 Unknown 00:06 00:06 WBC RBC Hgb Hct MCV MCH MCHC RDW Lymph % (Auto) Mason % (Auto) Eos % (Auto) Lymph # Mason # Eos # Seg Neutrophils % Seg Neuts % (Manual) Lymphocytes % (Manual) Monocytes % (Manual) Eosinophils % (Manual) Nucleated RBC % Seg Neutrophils # Seg Neutrophils # Man Lymphocytes # (Manual) Monocytes # (Manual) Eosinophils # (Manual) PT INR APTT POC ABG pH ABG pH POC ABG pCO2 POC ABG pO2 ABG pO2 ABG HCO3 ABG O2 Saturation ABG Base Excess ABG Hemoglobin Oxyhemoglobin Sodium Potassium Chloride Carbon Dioxide BUN Creatinine Glucose POC Glucose Uric Acid Calcium Phosphorus 4.90 H Magnesium AST ALT Total Creatine Kinase 226 H CK-MB (CK-2) 5.7 H Troponin T 0.044 H NT-Pro-B Natriuret Pep Total Protein Albumin Triglycerides 182 H HDL Cholesterol 18 L Urine WBC (Auto) Urine Creatinine Urine Total Protein Vancomycin Trough 05/02/19 05/02/19 05/02/19 02:08 04:40 04:41 WBC 17.6 H RBC Hgb Hct MCV MCH 27 L MCHC RDW 17.4 H Lymph % (Auto) 10.2 L Mason % (Auto) 11.0 H Eos % (Auto) Lymph # Mason # 1.9 H Eos # Seg Neutrophils % 78.0 H Seg Neuts % (Manual) Lymphocytes % (Manual) Monocytes % (Manual) Eosinophils % (Manual) Nucleated RBC % Seg Neutrophils # 13.8 H Seg Neutrophils # Man Lymphocytes # (Manual) Monocytes # (Manual) Eosinophils # (Manual) PT INR APTT POC ABG pH ABG pH POC ABG pCO2 46.8 H POC ABG pO2 63 L ABG pO2 ABG HCO3 ABG O2 Saturation ABG Base Excess ABG Hemoglobin Oxyhemoglobin Sodium Potassium Chloride 96.3 L Carbon Dioxide BUN 63 H Creatinine 1.7 H Glucose POC Glucose Uric Acid Calcium Phosphorus Magnesium AST ALT Total Creatine Kinase CK-MB (CK-2) Troponin T NT-Pro-B Natriuret Pep Total Protein Albumin Triglycerides HDL Cholesterol Urine WBC (Auto) Urine Creatinine Urine Total Protein Vancomycin Trough 05/02/19 05/02/19 05/02/19 04:41 04:41 16:05 WBC RBC Hgb Hct MCV MCH MCHC RDW Lymph % (Auto) Mason % (Auto) Eos % (Auto) Lymph # Mason # Eos # Seg Neutrophils % Seg Neuts % (Manual) Lymphocytes % (Manual) Monocytes % (Manual) Eosinophils % (Manual) Nucleated RBC % Seg Neutrophils # Seg Neutrophils # Man Lymphocytes # (Manual) Monocytes # (Manual) Eosinophils # (Manual) PT INR APTT POC ABG pH ABG pH POC ABG pCO2 POC ABG pO2 ABG pO2 66.6 L ABG HCO3 31.9 H ABG O2 Saturation 92.5 L ABG Base Excess 5.8 H ABG Hemoglobin 13.3 L Oxyhemoglobin 90.6 L Sodium Potassium Chloride 97.2 L Carbon Dioxide BUN 61 H Creatinine 1.8 H Glucose POC Glucose Uric Acid Calcium Phosphorus Magnesium AST ALT Total Creatine Kinase CK-MB (CK-2) 5.2 H Troponin T 0.067 H D NT-Pro-B Natriuret Pep Total Protein Albumin Triglycerides HDL Cholesterol Urine WBC (Auto) Urine Creatinine Urine Total Protein Vancomycin Trough 05/02/19 05/03/19 05/03/19 20:39 04:35 05:05 WBC 11.8 H RBC Hgb Hct MCV MCH 27 L MCHC 31 L RDW 17.2 H Lymph % (Auto) Mason % (Auto) Eos % (Auto) Lymph # Mason # Eos # Seg Neutrophils % Seg Neuts % (Manual) Lymphocytes % (Manual) Monocytes % (Manual) Eosinophils % (Manual) Nucleated RBC % Seg Neutrophils # Seg Neutrophils # Man Lymphocytes # (Manual) Monocytes # (Manual) Eosinophils # (Manual) PT INR APTT POC ABG pH ABG pH POC ABG pCO2 53.6 H 54.0 H POC ABG pO2 55 L 63 L ABG pO2 ABG HCO3 ABG O2 Saturation ABG Base Excess ABG Hemoglobin Oxyhemoglobin Sodium Potassium Chloride Carbon Dioxide BUN Creatinine Glucose POC Glucose Uric Acid Calcium Phosphorus Magnesium AST ALT Total Creatine Kinase CK-MB (CK-2) Troponin T NT-Pro-B Natriuret Pep Total Protein Albumin Triglycerides HDL Cholesterol Urine WBC (Auto) Urine Creatinine Urine Total Protein Vancomycin Trough 05/03/19 05/03/19 05/03/19 05:05 10:55 16:48 WBC RBC Hgb Hct MCV MCH MCHC RDW Lymph % (Auto) Mason % (Auto) Eos % (Auto) Lymph # Mason # Eos # Seg Neutrophils % Seg Neuts % (Manual) Lymphocytes % (Manual) Monocytes % (Manual) Eosinophils % (Manual) Nucleated RBC % Seg Neutrophils # Seg Neutrophils # Man Lymphocytes # (Manual) Monocytes # (Manual) Eosinophils # (Manual) PT INR APTT POC ABG pH 7.604 H ABG pH POC ABG pCO2 POC ABG pO2 58 L ABG pO2 ABG HCO3 ABG O2 Saturation ABG Base Excess ABG Hemoglobin Oxyhemoglobin Sodium Potassium Chloride Carbon Dioxide BUN 52 H Creatinine 1.9 H Glucose 103 H POC Glucose Uric Acid Calcium Phosphorus Magnesium AST ALT Total Creatine Kinase CK-MB (CK-2) Troponin T NT-Pro-B Natriuret Pep Total Protein Albumin Triglycerides HDL Cholesterol Urine WBC (Auto) 33.0 H Urine Creatinine Urine Total Protein Vancomycin Trough 05/04/19 05/04/19 05/04/19 04:49 06:50 06:50 WBC 16.0 H RBC Hgb Hct MCV MCH 27 L MCHC 31 L RDW 17.8 H Lymph % (Auto) Mason % (Auto) Eos % (Auto) Lymph # Mason # Eos # Seg Neutrophils % Seg Neuts % (Manual) Lymphocytes % (Manual) Monocytes % (Manual) Eosinophils % (Manual) Nucleated RBC % Seg Neutrophils # Seg Neutrophils # Man Lymphocytes # (Manual) Monocytes # (Manual) Eosinophils # (Manual) PT INR APTT POC ABG pH 7.273 L ABG pH POC ABG pCO2 POC ABG pO2 ABG pO2 ABG HCO3 ABG O2 Saturation ABG Base Excess ABG Hemoglobin Oxyhemoglobin Sodium 148 H Potassium 5.5 H Chloride Carbon Dioxide BUN 53 H Creatinine 3.3 H D Glucose 106 H POC Glucose Uric Acid Calcium 8.3 L Phosphorus Magnesium AST ALT Total Creatine Kinase CK-MB (CK-2) Troponin T NT-Pro-B Natriuret Pep Total Protein Albumin Triglycerides HDL Cholesterol Urine WBC (Auto) Urine Creatinine Urine Total Protein Vancomycin Trough 05/05/19 05/05/19 05/05/19 00:05 04:30 05:00 WBC RBC Hgb Hct MCV MCH MCHC RDW Lymph % (Auto) Mason % (Auto) Eos % (Auto) Lymph # Mason # Eos # Seg Neutrophils % Seg Neuts % (Manual) Lymphocytes % (Manual) Monocytes % (Manual) Eosinophils % (Manual) Nucleated RBC % Seg Neutrophils # Seg Neutrophils # Man Lymphocytes # (Manual) Monocytes # (Manual) Eosinophils # (Manual) PT INR APTT POC ABG pH 7.225 L ABG pH POC ABG pCO2 > 70 H POC ABG pO2 ABG pO2 ABG HCO3 ABG O2 Saturation ABG Base Excess ABG Hemoglobin Oxyhemoglobin Sodium 151 H Potassium 5.1 H Chloride Carbon Dioxide BUN 64 H Creatinine 3.5 H Glucose 117 H POC Glucose 141 H Uric Acid Calcium 7.5 L Phosphorus Magnesium AST 93 H ALT 65 H Total Creatine Kinase CK-MB (CK-2) Troponin T NT-Pro-B Natriuret Pep Total Protein Albumin 2.9 L Triglycerides HDL Cholesterol Urine WBC (Auto) Urine Creatinine Urine Total Protein Vancomycin Trough 05/05/19 05/05/19 05/05/19 05:00 12:02 17:46 WBC 12.0 H RBC Hgb 11.3 L Hct MCV MCH 27 L MCHC 30 L RDW 18.4 H Lymph % (Auto) 7.9 L Mason % (Auto) 10.2 H Eos % (Auto) Lymph # 1.0 L Mason # 1.2 H Eos # Seg Neutrophils % 80.8 H Seg Neuts % (Manual) Lymphocytes % (Manual) Monocytes % (Manual) Eosinophils % (Manual) Nucleated RBC % Seg Neutrophils # 9.7 H Seg Neutrophils # Man Lymphocytes # (Manual) Monocytes # (Manual) Eosinophils # (Manual) PT INR APTT POC ABG pH ABG pH POC ABG pCO2 POC ABG pO2 ABG pO2 ABG HCO3 ABG O2 Saturation ABG Base Excess ABG Hemoglobin Oxyhemoglobin Sodium Potassium Chloride Carbon Dioxide BUN Creatinine Glucose POC Glucose 125 H 112 H Uric Acid Calcium Phosphorus Magnesium AST ALT Total Creatine Kinase CK-MB (CK-2) Troponin T NT-Pro-B Natriuret Pep Total Protein Albumin Triglycerides HDL Cholesterol Urine WBC (Auto) Urine Creatinine Urine Total Protein Vancomycin Trough 05/05/19 05/06/19 05/06/19 23:42 03:58 04:45 WBC 11.4 H RBC Hgb 10.7 L Hct 34.2 L MCV MCH 27 L MCHC 31 L RDW 16.9 H Lymph % (Auto) Mason % (Auto) Eos % (Auto) Lymph # Mason # Eos # Seg Neutrophils % Seg Neuts % (Manual) Lymphocytes % (Manual) Monocytes % (Manual) Eosinophils % (Manual) Nucleated RBC % Seg Neutrophils # Seg Neutrophils # Man Lymphocytes # (Manual) Monocytes # (Manual) Eosinophils # (Manual) PT INR APTT POC ABG pH ABG pH POC ABG pCO2 62.4 H POC ABG pO2 111 H ABG pO2 ABG HCO3 ABG O2 Saturation ABG Base Excess ABG Hemoglobin Oxyhemoglobin Sodium Potassium Chloride Carbon Dioxide BUN Creatinine Glucose POC Glucose 128 H Uric Acid Calcium Phosphorus Magnesium AST ALT Total Creatine Kinase CK-MB (CK-2) Troponin T NT-Pro-B Natriuret Pep Total Protein Albumin Triglycerides HDL Cholesterol Urine WBC (Auto) Urine Creatinine Urine Total Protein Vancomycin Trough 05/06/19 05/06/19 05/06/19 04:45 05:33 12:30 WBC RBC Hgb Hct MCV MCH MCHC RDW Lymph % (Auto) Mason % (Auto) Eos % (Auto) Lymph # Mason # Eos # Seg Neutrophils % Seg Neuts % (Manual) Lymphocytes % (Manual) Monocytes % (Manual) Eosinophils % (Manual) Nucleated RBC % Seg Neutrophils # Seg Neutrophils # Man Lymphocytes # (Manual) Monocytes # (Manual) Eosinophils # (Manual) PT INR APTT POC ABG pH ABG pH POC ABG pCO2 POC ABG pO2 ABG pO2 ABG HCO3 ABG O2 Saturation ABG Base Excess ABG Hemoglobin Oxyhemoglobin Sodium 149 H Potassium Chloride Carbon Dioxide 31 H BUN 67 H Creatinine 3.2 H Glucose 125 H POC Glucose 117 H 116 H Uric Acid Calcium 7.5 L Phosphorus Magnesium AST ALT Total Creatine Kinase CK-MB (CK-2) Troponin T NT-Pro-B Natriuret Pep Total Protein Albumin Triglycerides HDL Cholesterol Urine WBC (Auto) Urine Creatinine Urine Total Protein Vancomycin Trough 05/06/19 05/06/19 05/07/19 18:34 23:16 05:22 WBC RBC Hgb Hct MCV MCH MCHC RDW Lymph % (Auto) Mason % (Auto) Eos % (Auto) Lymph # Mason # Eos # Seg Neutrophils % Seg Neuts % (Manual) Lymphocytes % (Manual) Monocytes % (Manual) Eosinophils % (Manual) Nucleated RBC % Seg Neutrophils # Seg Neutrophils # Man Lymphocytes # (Manual) Monocytes # (Manual) Eosinophils # (Manual) PT INR APTT POC ABG pH ABG pH POC ABG pCO2 POC ABG pO2 ABG pO2 ABG HCO3 ABG O2 Saturation ABG Base Excess ABG Hemoglobin Oxyhemoglobin Sodium Potassium Chloride Carbon Dioxide BUN Creatinine Glucose POC Glucose 128 H 143 H 166 H Uric Acid Calcium Phosphorus Magnesium AST ALT Total Creatine Kinase CK-MB (CK-2) Troponin T NT-Pro-B Natriuret Pep Total Protein Albumin Triglycerides HDL Cholesterol Urine WBC (Auto) Urine Creatinine Urine Total Protein Vancomycin Trough 05/07/19 05/07/19 05/07/19 06:33 07:03 09:35 WBC RBC Hgb Hct MCV MCH MCHC RDW Lymph % (Auto) Mason % (Auto) Eos % (Auto) Lymph # Mason # Eos # Seg Neutrophils % Seg Neuts % (Manual) Lymphocytes % (Manual) Monocytes % (Manual) Eosinophils % (Manual) Nucleated RBC % Seg Neutrophils # Seg Neutrophils # Man Lymphocytes # (Manual) Monocytes # (Manual) Eosinophils # (Manual) PT INR APTT POC ABG pH 7.263 L 7.288 L ABG pH POC ABG pCO2 POC ABG pO2 51 L 56 L ABG pO2 ABG HCO3 ABG O2 Saturation ABG Base Excess ABG Hemoglobin Oxyhemoglobin Sodium Potassium Chloride Carbon Dioxide BUN 76 H Creatinine 3.2 H Glucose 147 H POC Glucose Uric Acid Calcium 7.9 L Phosphorus Magnesium AST ALT Total Creatine Kinase CK-MB (CK-2) Troponin T NT-Pro-B Natriuret Pep Total Protein Albumin Triglycerides HDL Cholesterol Urine WBC (Auto) Urine Creatinine Urine Total Protein Vancomycin Trough 05/07/19 05/07/19 05/07/19 09:35 12:17 13:45 WBC 13.4 H RBC Hgb 11.6 L Hct MCV MCH 27 L MCHC 31 L RDW 17.5 H Lymph % (Auto) Mason % (Auto) Eos % (Auto) Lymph # Mason # Eos # Seg Neutrophils % Seg Neuts % (Manual) Lymphocytes % (Manual) Monocytes % (Manual) Eosinophils % (Manual) Nucleated RBC % Seg Neutrophils # Seg Neutrophils # Man Lymphocytes # (Manual) Monocytes # (Manual) Eosinophils # (Manual) PT INR APTT POC ABG pH ABG pH POC ABG pCO2 POC ABG pO2 ABG pO2 ABG HCO3 ABG O2 Saturation ABG Base Excess ABG Hemoglobin Oxyhemoglobin Sodium Potassium Chloride Carbon Dioxide BUN Creatinine Glucose POC Glucose 130 H Uric Acid 18.0 H Calcium Phosphorus Magnesium AST ALT Total Creatine Kinase CK-MB (CK-2) Troponin T NT-Pro-B Natriuret Pep Total Protein Albumin Triglycerides HDL Cholesterol Urine WBC (Auto) Urine Creatinine Urine Total Protein Vancomycin Trough 05/07/19 05/07/19 05/08/19 17:39 22:40 05:06 WBC RBC Hgb Hct MCV MCH MCHC RDW Lymph % (Auto) Mason % (Auto) Eos % (Auto) Lymph # Mason # Eos # Seg Neutrophils % Seg Neuts % (Manual) Lymphocytes % (Manual) Monocytes % (Manual) Eosinophils % (Manual) Nucleated RBC % Seg Neutrophils # Seg Neutrophils # Man Lymphocytes # (Manual) Monocytes # (Manual) Eosinophils # (Manual) PT INR APTT POC ABG pH ABG pH POC ABG pCO2 POC ABG pO2 ABG pO2 ABG HCO3 ABG O2 Saturation ABG Base Excess ABG Hemoglobin Oxyhemoglobin Sodium Potassium Chloride Carbon Dioxide BUN Creatinine Glucose POC Glucose 116 H 148 H Uric Acid Calcium Phosphorus Magnesium AST ALT Total Creatine Kinase CK-MB (CK-2) Troponin T NT-Pro-B Natriuret Pep Total Protein Albumin Triglycerides HDL Cholesterol Urine WBC (Auto) Urine Creatinine 292.8 H Urine Total Protein 269 H Vancomycin Trough 05/08/19 05/08/19 05/08/19 05:32 11:28 13:48 WBC RBC Hgb Hct MCV MCH MCHC RDW Lymph % (Auto) Mason % (Auto) Eos % (Auto) Lymph # Mason # Eos # Seg Neutrophils % Seg Neuts % (Manual) Lymphocytes % (Manual) Monocytes % (Manual) Eosinophils % (Manual) Nucleated RBC % Seg Neutrophils # Seg Neutrophils # Man Lymphocytes # (Manual) Monocytes # (Manual) Eosinophils # (Manual) PT INR APTT POC ABG pH ABG pH POC ABG pCO2 45.4 H POC ABG pO2 64 L ABG pO2 ABG HCO3 ABG O2 Saturation ABG Base Excess ABG Hemoglobin Oxyhemoglobin Sodium Potassium Chloride Carbon Dioxide BUN 73 H Creatinine 2.7 H Glucose 127 H POC Glucose 107 H Uric Acid Calcium 7.6 L Phosphorus Magnesium AST ALT Total Creatine Kinase CK-MB (CK-2) Troponin T NT-Pro-B Natriuret Pep Total Protein Albumin Triglycerides HDL Cholesterol Urine WBC (Auto) Urine Creatinine Urine Total Protein Vancomycin Trough 05/08/19 05/09/19 05/09/19 17:48 04:50 04:53 WBC RBC 3.07 L Hgb 8.5 L D Hct 29.3 L D MCV 96 H MCH MCHC 29 L RDW 18.1 H Lymph % (Auto) Mason % (Auto) Eos % (Auto) Lymph # Mason # Eos # Seg Neutrophils % Seg Neuts % (Manual) Lymphocytes % (Manual) Monocytes % (Manual) Eosinophils % (Manual) Nucleated RBC % Seg Neutrophils # Seg Neutrophils # Man Lymphocytes # (Manual) Monocytes # (Manual) Eosinophils # (Manual) PT INR APTT POC ABG pH 7.316 L ABG pH POC ABG pCO2 66.0 H POC ABG pO2 69 L ABG pO2 ABG HCO3 ABG O2 Saturation ABG Base Excess ABG Hemoglobin Oxyhemoglobin Sodium Potassium Chloride Carbon Dioxide BUN Creatinine Glucose POC Glucose 155 H Uric Acid Calcium Phosphorus Magnesium AST ALT Total Creatine Kinase CK-MB (CK-2) Troponin T NT-Pro-B Natriuret Pep Total Protein Albumin Triglycerides HDL Cholesterol Urine WBC (Auto) Urine Creatinine Urine Total Protein Vancomycin Trough 05/09/19 05/09/19 05/09/19 05:46 07:24 12:10 WBC RBC Hgb Hct MCV MCH MCHC RDW Lymph % (Auto) Mason % (Auto) Eos % (Auto) Lymph # Mason # Eos # Seg Neutrophils % Seg Neuts % (Manual) Lymphocytes % (Manual) Monocytes % (Manual) Eosinophils % (Manual) Nucleated RBC % Seg Neutrophils # Seg Neutrophils # Man Lymphocytes # (Manual) Monocytes # (Manual) Eosinophils # (Manual) PT INR APTT POC ABG pH ABG pH POC ABG pCO2 POC ABG pO2 ABG pO2 ABG HCO3 ABG O2 Saturation ABG Base Excess ABG Hemoglobin Oxyhemoglobin Sodium Potassium Chloride Carbon Dioxide BUN 73 H Creatinine 2.4 H Glucose 153 H POC Glucose 123 H 148 H Uric Acid Calcium 8.2 L Phosphorus Magnesium AST 45 H ALT Total Creatine Kinase CK-MB (CK-2) Troponin T NT-Pro-B Natriuret Pep Total Protein 6.0 L Albumin 1.9 L Triglycerides HDL Cholesterol Urine WBC (Auto) Urine Creatinine Urine Total Protein Vancomycin Trough 05/09/19 05/09/19 05/10/19 18:23 23:26 04:52 WBC RBC Hgb Hct MCV MCH MCHC RDW Lymph % (Auto) Mason % (Auto) Eos % (Auto) Lymph # Mason # Eos # Seg Neutrophils % Seg Neuts % (Manual) Lymphocytes % (Manual) Monocytes % (Manual) Eosinophils % (Manual) Nucleated RBC % Seg Neutrophils # Seg Neutrophils # Man Lymphocytes # (Manual) Monocytes # (Manual) Eosinophils # (Manual) PT INR APTT POC ABG pH 7.305 L ABG pH POC ABG pCO2 62.6 H POC ABG pO2 ABG pO2 ABG HCO3 ABG O2 Saturation ABG Base Excess ABG Hemoglobin Oxyhemoglobin Sodium Potassium Chloride Carbon Dioxide BUN Creatinine Glucose POC Glucose 147 H 121 H Uric Acid Calcium Phosphorus Magnesium AST ALT Total Creatine Kinase CK-MB (CK-2) Troponin T NT-Pro-B Natriuret Pep Total Protein Albumin Triglycerides HDL Cholesterol Urine WBC (Auto) Urine Creatinine Urine Total Protein Vancomycin Trough 05/10/19 05/10/19 05/10/19 05:00 05:00 05:50 WBC RBC Hgb 10.3 L Hct 33.7 L MCV MCH 27 L MCHC 31 L RDW 17.0 H Lymph % (Auto) Mason % (Auto) Eos % (Auto) Lymph # Mason # Eos # Seg Neutrophils % Seg Neuts % (Manual) Lymphocytes % (Manual) Monocytes % (Manual) Eosinophils % (Manual) Nucleated RBC % Seg Neutrophils # Seg Neutrophils # Man Lymphocytes # (Manual) Monocytes # (Manual) Eosinophils # (Manual) PT INR APTT POC ABG pH ABG pH POC ABG pCO2 POC ABG pO2 ABG pO2 ABG HCO3 ABG O2 Saturation ABG Base Excess ABG Hemoglobin Oxyhemoglobin Sodium 147 H Potassium Chloride Carbon Dioxide BUN 70 H Creatinine 2.6 H Glucose 155 H POC Glucose 158 H Uric Acid Calcium 8.2 L Phosphorus Magnesium AST ALT Total Creatine Kinase CK-MB (CK-2) Troponin T NT-Pro-B Natriuret Pep Total Protein 6.1 L Albumin 2.5 L Triglycerides HDL Cholesterol Urine WBC (Auto) Urine Creatinine Urine Total Protein Vancomycin Trough 05/10/19 05/11/19 05/11/19 13:14 07:26 11:40 WBC RBC Hgb Hct MCV MCH MCHC RDW Lymph % (Auto) Mason % (Auto) Eos % (Auto) Lymph # Mason # Eos # Seg Neutrophils % Seg Neuts % (Manual) Lymphocytes % (Manual) Monocytes % (Manual) Eosinophils % (Manual) Nucleated RBC % Seg Neutrophils # Seg Neutrophils # Man Lymphocytes # (Manual) Monocytes # (Manual) Eosinophils # (Manual) PT INR APTT POC ABG pH ABG pH POC ABG pCO2 48.0 H POC ABG pO2 58 L ABG pO2 ABG HCO3 ABG O2 Saturation ABG Base Excess ABG Hemoglobin Oxyhemoglobin Sodium 147 H Potassium Chloride 107.2 H Carbon Dioxide BUN 67 H Creatinine 2.6 H Glucose 121 H POC Glucose 159 H Uric Acid Calcium Phosphorus Magnesium AST ALT Total Creatine Kinase CK-MB (CK-2) Troponin T NT-Pro-B Natriuret Pep Total Protein Albumin Triglycerides HDL Cholesterol Urine WBC (Auto) Urine Creatinine Urine Total Protein Vancomycin Trough 05/11/19 05/11/19 05/12/19 18:13 23:46 04:40 WBC RBC Hgb Hct MCV MCH MCHC RDW Lymph % (Auto) Mason % (Auto) Eos % (Auto) Lymph # Mason # Eos # Seg Neutrophils % Seg Neuts % (Manual) Lymphocytes % (Manual) Monocytes % (Manual) Eosinophils % (Manual) Nucleated RBC % Seg Neutrophils # Seg Neutrophils # Man Lymphocytes # (Manual) Monocytes # (Manual) Eosinophils # (Manual) PT INR APTT POC ABG pH ABG pH 7.264 L POC ABG pCO2 POC ABG pO2 ABG pO2 66.8 L ABG HCO3 31.0 H ABG O2 Saturation 92.0 L ABG Base Excess ABG Hemoglobin 10.3 L Oxyhemoglobin 90.1 L Sodium Potassium Chloride Carbon Dioxide BUN Creatinine Glucose POC Glucose 120 H 121 H Uric Acid Calcium Phosphorus Magnesium AST ALT Total Creatine Kinase CK-MB (CK-2) Troponin T NT-Pro-B Natriuret Pep Total Protein Albumin Triglycerides HDL Cholesterol Urine WBC (Auto) Urine Creatinine Urine Total Protein Vancomycin Trough 05/12/19 05/12/19 05/12/19 04:45 04:45 11:14 WBC RBC Hgb 10.2 L Hct 32.4 L MCV MCH MCHC 31 L RDW 17.2 H Lymph % (Auto) Mason % (Auto) Eos % (Auto) Lymph # Mason # Eos # Seg Neutrophils % Seg Neuts % (Manual) Lymphocytes % (Manual) Monocytes % (Manual) Eosinophils % (Manual) Nucleated RBC % Seg Neutrophils # Seg Neutrophils # Man Lymphocytes # (Manual) Monocytes # (Manual) Eosinophils # (Manual) PT INR APTT POC ABG pH 7.284 L ABG pH POC ABG pCO2 67.8 H POC ABG pO2 ABG pO2 ABG HCO3 ABG O2 Saturation ABG Base Excess ABG Hemoglobin Oxyhemoglobin Sodium Potassium Chloride Carbon Dioxide BUN 63 H Creatinine 2.4 H Glucose 110 H POC Glucose Uric Acid Calcium Phosphorus Magnesium AST ALT Total Creatine Kinase CK-MB (CK-2) Troponin T NT-Pro-B Natriuret Pep Total Protein Albumin Triglycerides HDL Cholesterol Urine WBC (Auto) Urine Creatinine Urine Total Protein Vancomycin Trough 05/12/19 05/12/19 05/13/19 11:44 23:11 04:30 WBC RBC Hgb Hct MCV MCH MCHC RDW Lymph % (Auto) Mason % (Auto) Eos % (Auto) Lymph # Mason # Eos # Seg Neutrophils % Seg Neuts % (Manual) Lymphocytes % (Manual) Monocytes % (Manual) Eosinophils % (Manual) Nucleated RBC % Seg Neutrophils # Seg Neutrophils # Man Lymphocytes # (Manual) Monocytes # (Manual) Eosinophils # (Manual) PT INR APTT POC ABG pH ABG pH 7.288 L POC ABG pCO2 POC ABG pO2 ABG pO2 109.7 H ABG HCO3 30.9 H ABG O2 Saturation ABG Base Excess 3.2 H ABG Hemoglobin 9.6 L Oxyhemoglobin Sodium Potassium Chloride Carbon Dioxide BUN Creatinine Glucose POC Glucose 126 H 147 H Uric Acid Calcium Phosphorus Magnesium AST ALT Total Creatine Kinase CK-MB (CK-2) Troponin T NT-Pro-B Natriuret Pep Total Protein Albumin Triglycerides HDL Cholesterol Urine WBC (Auto) Urine Creatinine Urine Total Protein Vancomycin Trough 05/13/19 05/13/19 05/14/19 06:27 11:58 04:00 WBC RBC 3.16 L Hgb 9.3 L Hct 27.9 L MCV MCH MCHC RDW 17.1 H Lymph % (Auto) Mason % (Auto) Eos % (Auto) Lymph # Mason # Eos # Seg Neutrophils % Seg Neuts % (Manual) Lymphocytes % (Manual) Monocytes % (Manual) Eosinophils % (Manual) Nucleated RBC % Seg Neutrophils # Seg Neutrophils # Man Lymphocytes # (Manual) Monocytes # (Manual) Eosinophils # (Manual) PT INR APTT POC ABG pH ABG pH POC ABG pCO2 POC ABG pO2 ABG pO2 ABG HCO3 ABG O2 Saturation ABG Base Excess ABG Hemoglobin Oxyhemoglobin Sodium Potassium Chloride Carbon Dioxide BUN Creatinine Glucose POC Glucose 113 H 130 H Uric Acid Calcium Phosphorus Magnesium AST ALT Total Creatine Kinase CK-MB (CK-2) Troponin T NT-Pro-B Natriuret Pep Total Protein Albumin Triglycerides HDL Cholesterol Urine WBC (Auto) Urine Creatinine Urine Total Protein Vancomycin Trough 05/14/19 05/14/19 05/14/19 04:00 04:34 05:32 WBC RBC Hgb Hct MCV MCH MCHC RDW Lymph % (Auto) Mason % (Auto) Eos % (Auto) Lymph # Mason # Eos # Seg Neutrophils % Seg Neuts % (Manual) Lymphocytes % (Manual) Monocytes % (Manual) Eosinophils % (Manual) Nucleated RBC % Seg Neutrophils # Seg Neutrophils # Man Lymphocytes # (Manual) Monocytes # (Manual) Eosinophils # (Manual) PT INR APTT POC ABG pH 7.328 L ABG pH POC ABG pCO2 61.7 H POC ABG pO2 ABG pO2 ABG HCO3 ABG O2 Saturation ABG Base Excess ABG Hemoglobin Oxyhemoglobin Sodium 135 L D Potassium Chloride Carbon Dioxide BUN 57 H Creatinine 2.2 H Glucose 115 H POC Glucose 115 H Uric Acid Calcium 8.1 L Phosphorus Magnesium AST ALT Total Creatine Kinase CK-MB (CK-2) Troponin T NT-Pro-B Natriuret Pep Total Protein Albumin Triglycerides HDL Cholesterol Urine WBC (Auto) Urine Creatinine Urine Total Protein Vancomycin Trough 05/14/19 05/15/19 05/15/19 12:11 05:10 05:24 WBC RBC Hgb Hct MCV MCH MCHC RDW Lymph % (Auto) Mason % (Auto) Eos % (Auto) Lymph # Mason # Eos # Seg Neutrophils % Seg Neuts % (Manual) Lymphocytes % (Manual) Monocytes % (Manual) Eosinophils % (Manual) Nucleated RBC % Seg Neutrophils # Seg Neutrophils # Man Lymphocytes # (Manual) Monocytes # (Manual) Eosinophils # (Manual) PT INR APTT POC ABG pH ABG pH 7.342 L POC ABG pCO2 POC ABG pO2 ABG pO2 79.1 L ABG HCO3 28.2 H ABG O2 Saturation ABG Base Excess ABG Hemoglobin 7.0 L Oxyhemoglobin 94.4 L Sodium Potassium Chloride Carbon Dioxide BUN Creatinine Glucose POC Glucose 110 H 116 H Uric Acid Calcium Phosphorus Magnesium AST ALT Total Creatine Kinase CK-MB (CK-2) Troponin T NT-Pro-B Natriuret Pep Total Protein Albumin Triglycerides HDL Cholesterol Urine WBC (Auto) Urine Creatinine Urine Total Protein Vancomycin Trough 05/15/19 05/15/19 05/16/19 09:00 18:12 04:50 WBC RBC Hgb Hct MCV MCH MCHC RDW Lymph % (Auto) Mason % (Auto) Eos % (Auto) Lymph # Mason # Eos # Seg Neutrophils % Seg Neuts % (Manual) Lymphocytes % (Manual) Monocytes % (Manual) Eosinophils % (Manual) Nucleated RBC % Seg Neutrophils # Seg Neutrophils # Man Lymphocytes # (Manual) Monocytes # (Manual) Eosinophils # (Manual) PT INR APTT POC ABG pH ABG pH 7.250 L POC ABG pCO2 POC ABG pO2 ABG pO2 76.4 L ABG HCO3 ABG O2 Saturation 94.6 L ABG Base Excess -3.1 L ABG Hemoglobin 9.7 L Oxyhemoglobin 92.4 L Sodium Potassium Chloride Carbon Dioxide BUN Creatinine Glucose POC Glucose 110 H Uric Acid Calcium Phosphorus Magnesium AST ALT Total Creatine Kinase CK-MB (CK-2) Troponin T NT-Pro-B Natriuret Pep Total Protein Albumin Triglycerides HDL Cholesterol Urine WBC (Auto) Urine Creatinine Urine Total Protein Vancomycin Trough 20.5 H 05/16/19 05/16/19 05/17/19 05:50 05:50 04:20 WBC RBC 3.36 L 3.44 L Hgb 9.4 L 9.3 L Hct 29.1 L 29.7 L MCV MCH 27 L MCHC 31 L RDW 17.6 H 17.6 H Lymph % (Auto) Mason % (Auto) Eos % (Auto) Lymph # Mason # Eos # Seg Neutrophils % Seg Neuts % (Manual) 77.0 H Lymphocytes % (Manual) 5.0 L Monocytes % (Manual) Eosinophils % (Manual) 10.0 H Nucleated RBC % Seg Neutrophils # Seg Neutrophils # Man Lymphocytes # (Manual) 0.5 L Monocytes # (Manual) Eosinophils # (Manual) 0.9 H PT INR APTT POC ABG pH ABG pH POC ABG pCO2 POC ABG pO2 ABG pO2 ABG HCO3 ABG O2 Saturation ABG Base Excess ABG Hemoglobin Oxyhemoglobin Sodium Potassium Chloride Carbon Dioxide BUN 83 H Creatinine 4.4 H D Glucose 118 H POC Glucose Uric Acid Calcium Phosphorus Magnesium AST ALT Total Creatine Kinase CK-MB (CK-2) Troponin T NT-Pro-B Natriuret Pep Total Protein Albumin Triglycerides HDL Cholesterol Urine WBC (Auto) Urine Creatinine Urine Total Protein Vancomycin Trough 05/17/19 05/17/19 05/18/19 04:30 Unknown 01:50 WBC RBC 3.49 L Hgb 9.4 L Hct 30.0 L MCV MCH 27 L MCHC 31 L RDW 17.8 H Lymph % (Auto) 7.9 L Mason % (Auto) 15.4 H Eos % (Auto) 6.3 H Lymph # 0.7 L Mason # 1.4 H Eos # 0.6 H Seg Neutrophils % 70.2 H Seg Neuts % (Manual) Lymphocytes % (Manual) Monocytes % (Manual) Eosinophils % (Manual) Nucleated RBC % Seg Neutrophils # Seg Neutrophils # Man Lymphocytes # (Manual) Monocytes # (Manual) Eosinophils # (Manual) PT INR APTT POC ABG pH ABG pH 7.272 L POC ABG pCO2 POC ABG pO2 ABG pO2 75.7 L ABG HCO3 ABG O2 Saturation 93.8 L ABG Base Excess -3.0 L ABG Hemoglobin 7.8 L Oxyhemoglobin 91.6 L Sodium Potassium 5.2 H Chloride Carbon Dioxide BUN 96 H Creatinine 5.7 H Glucose 112 H POC Glucose Uric Acid Calcium Phosphorus Magnesium AST ALT Total Creatine Kinase CK-MB (CK-2) Troponin T NT-Pro-B Natriuret Pep Total Protein Albumin Triglycerides 173 H HDL Cholesterol Urine WBC (Auto) Urine Creatinine Urine Total Protein Vancomycin Trough 05/18/19 05/18/19 05/18/19 01:50 04:41 05:24 WBC RBC Hgb Hct MCV MCH MCHC RDW Lymph % (Auto) Mason % (Auto) Eos % (Auto) Lymph # Mason # Eos # Seg Neutrophils % Seg Neuts % (Manual) Lymphocytes % (Manual) Monocytes % (Manual) Eosinophils % (Manual) Nucleated RBC % Seg Neutrophils # Seg Neutrophils # Man Lymphocytes # (Manual) Monocytes # (Manual) Eosinophils # (Manual) PT INR APTT POC ABG pH 7.260 L ABG pH POC ABG pCO2 54.9 H POC ABG pO2 ABG pO2 ABG HCO3 ABG O2 Saturation ABG Base Excess ABG Hemoglobin Oxyhemoglobin Sodium Potassium 5.6 H Chloride Carbon Dioxide BUN 104 H Creatinine 6.6 H Glucose 107 H POC Glucose 106 H Uric Acid Calcium Phosphorus Magnesium AST ALT Total Creatine Kinase CK-MB (CK-2) Troponin T NT-Pro-B Natriuret Pep Total Protein Albumin Triglycerides HDL Cholesterol Urine WBC (Auto) Urine Creatinine Urine Total Protein Vancomycin Trough 05/18/19 05/18/19 05/19/19 11:34 23:26 04:06 WBC RBC 3.22 L Hgb 8.8 L Hct 27.3 L MCV MCH 27 L MCHC RDW 17.5 H Lymph % (Auto) Mason % (Auto) Eos % (Auto) Lymph # Mason # Eos # Seg Neutrophils % Seg Neuts % (Manual) 74.0 H Lymphocytes % (Manual) 4.0 L Monocytes % (Manual) 11.0 H Eosinophils % (Manual) 7.0 H Nucleated RBC % 1.0 H Seg Neutrophils # Seg Neutrophils # Man Lymphocytes # (Manual) 0.3 L Monocytes # (Manual) 0.9 H Eosinophils # (Manual) 0.6 H PT INR APTT POC ABG pH ABG pH POC ABG pCO2 POC ABG pO2 ABG pO2 ABG HCO3 ABG O2 Saturation ABG Base Excess ABG Hemoglobin Oxyhemoglobin Sodium Potassium Chloride Carbon Dioxide BUN Creatinine Glucose POC Glucose 152 H 112 H Uric Acid Calcium Phosphorus Magnesium AST ALT Total Creatine Kinase CK-MB (CK-2) Troponin T NT-Pro-B Natriuret Pep Total Protein Albumin Triglycerides HDL Cholesterol Urine WBC (Auto) Urine Creatinine Urine Total Protein Vancomycin Trough 05/19/19 05/19/19 05/20/19 04:06 06:00 04:00 WBC RBC 3.40 L Hgb 9.2 L Hct 28.6 L MCV MCH 27 L MCHC RDW 17.6 H Lymph % (Auto) Mason % (Auto) Eos % (Auto) Lymph # Mason # Eos # Seg Neutrophils % Seg Neuts % (Manual) Lymphocytes % (Manual) 11.0 L Monocytes % (Manual) Eosinophils % (Manual) 14.0 H Nucleated RBC % Seg Neutrophils # Seg Neutrophils # Man Lymphocytes # (Manual) 1.1 L Monocytes # (Manual) Eosinophils # (Manual) 1.4 H PT INR APTT POC ABG pH ABG pH 7.315 L POC ABG pCO2 POC ABG pO2 ABG pO2 ABG HCO3 ABG O2 Saturation ABG Base Excess ABG Hemoglobin 6.7 L Oxyhemoglobin 94.1 L Sodium Potassium 5.2 H Chloride Carbon Dioxide 21 L BUN 110 H Creatinine 7.2 H Glucose POC Glucose Uric Acid Calcium 8.3 L Phosphorus Magnesium AST ALT Total Creatine Kinase CK-MB (CK-2) Troponin T NT-Pro-B Natriuret Pep Total Protein Albumin Triglycerides HDL Cholesterol Urine WBC (Auto) Urine Creatinine Urine Total Protein Vancomycin Trough 05/20/19 05/20/19 05/20/19 04:00 05:48 12:00 WBC RBC Hgb Hct MCV MCH MCHC RDW Lymph % (Auto) Mason % (Auto) Eos % (Auto) Lymph # Mason # Eos # Seg Neutrophils % Seg Neuts % (Manual) Lymphocytes % (Manual) Monocytes % (Manual) Eosinophils % (Manual) Nucleated RBC % Seg Neutrophils # Seg Neutrophils # Man Lymphocytes # (Manual) Monocytes # (Manual) Eosinophils # (Manual) PT INR APTT POC ABG pH ABG pH 7.281 L POC ABG pCO2 POC ABG pO2 ABG pO2 78.7 L ABG HCO3 ABG O2 Saturation 94.5 L ABG Base Excess -3.0 L ABG Hemoglobin 9.9 L Oxyhemoglobin 92.5 L Sodium 136 L Potassium 5.7 H Chloride 96.3 L Carbon Dioxide BUN 125 H Creatinine 8.3 H Glucose 106 H POC Glucose Uric Acid Calcium Phosphorus Magnesium AST ALT Total Creatine Kinase CK-MB (CK-2) Troponin T NT-Pro-B Natriuret Pep Total Protein Albumin Triglycerides HDL Cholesterol Urine WBC (Auto) 26.0 H Urine Creatinine Urine Total Protein Vancomycin Trough 05/21/19 05/21/19 05/21/19 04:33 05:20 Unknown WBC RBC 3.38 L Hgb 9.1 L Hct 28.5 L MCV MCH 27 L MCHC RDW 17.4 H Lymph % (Auto) Mason % (Auto) Eos % (Auto) Lymph # Mason # Eos # Seg Neutrophils % Seg Neuts % (Manual) 71.0 H Lymphocytes % (Manual) 1.0 L Monocytes % (Manual) 11.0 H Eosinophils % (Manual) 6.0 H Nucleated RBC % Seg Neutrophils # Seg Neutrophils # Man Lymphocytes # (Manual) 0.1 L Monocytes # (Manual) 1.0 H Eosinophils # (Manual) 0.6 H PT INR APTT POC ABG pH 7.315 L ABG pH POC ABG pCO2 57.8 H POC ABG pO2 68 L ABG pO2 ABG HCO3 ABG O2 Saturation ABG Base Excess ABG Hemoglobin Oxyhemoglobin Sodium Potassium Chloride 96.3 L Carbon Dioxide BUN 102 H Creatinine 7.0 H Glucose 103 H POC Glucose Uric Acid Calcium Phosphorus Magnesium AST ALT Total Creatine Kinase CK-MB (CK-2) Troponin T NT-Pro-B Natriuret Pep Total Protein Albumin Triglycerides HDL Cholesterol Urine WBC (Auto) Urine Creatinine Urine Total Protein Vancomycin Trough 05/22/19 05/22/19 05/22/19 03:54 06:25 06:25 WBC RBC 3.22 L Hgb 8.6 L Hct 27.0 L MCV MCH 27 L MCHC RDW 17.5 H Lymph % (Auto) Mason % (Auto) 16.2 H Eos % (Auto) 10.8 H Lymph # Mason # 1.3 H Eos # 0.9 H Seg Neutrophils % Seg Neuts % (Manual) Lymphocytes % (Manual) 10.0 L Monocytes % (Manual) 13.0 H Eosinophils % (Manual) 8.0 H Nucleated RBC % Seg Neutrophils # Seg Neutrophils # Man Lymphocytes # (Manual) 0.9 L Monocytes # (Manual) 1.1 H Eosinophils # (Manual) 0.7 H PT INR APTT POC ABG pH 7.313 L ABG pH POC ABG pCO2 55.0 H POC ABG pO2 ABG pO2 ABG HCO3 ABG O2 Saturation ABG Base Excess ABG Hemoglobin Oxyhemoglobin Sodium 135 L Potassium Chloride 94.3 L Carbon Dioxide BUN 117 H Creatinine 7.8 H Glucose POC Glucose Uric Acid Calcium 8.2 L Phosphorus Magnesium AST ALT Total Creatine Kinase CK-MB (CK-2) Troponin T NT-Pro-B Natriuret Pep Total Protein Albumin Triglycerides HDL Cholesterol Urine WBC (Auto) Urine Creatinine Urine Total Protein Vancomycin Trough 05/23/19 05/24/19 05/24/19 05:21 05:00 05:00 WBC RBC 3.18 L Hgb 8.5 L Hct 26.7 L MCV MCH 27 L MCHC RDW 17.9 H Lymph % (Auto) Mason % (Auto) Eos % (Auto) Lymph # Mason # Eos # Seg Neutrophils % Seg Neuts % (Manual) Lymphocytes % (Manual) Monocytes % (Manual) Eosinophils % (Manual) Nucleated RBC % Seg Neutrophils # Seg Neutrophils # Man Lymphocytes # (Manual) Monocytes # (Manual) Eosinophils # (Manual) PT INR APTT POC ABG pH ABG pH POC ABG pCO2 49.7 H POC ABG pO2 73 L ABG pO2 ABG HCO3 ABG O2 Saturation ABG Base Excess ABG Hemoglobin Oxyhemoglobin Sodium Potassium Chloride 95.7 L Carbon Dioxide BUN 97 H Creatinine 6.5 H Glucose POC Glucose Uric Acid Calcium 8.0 L Phosphorus Magnesium AST ALT Total Creatine Kinase CK-MB (CK-2) Troponin T NT-Pro-B Natriuret Pep Total Protein Albumin Triglycerides HDL Cholesterol Urine WBC (Auto) Urine Creatinine Urine Total Protein Vancomycin Trough 05/24/19 05/25/19 05/25/19 06:17 04:22 15:45 WBC RBC 2.98 L Hgb 8.1 L Hct 24.9 L MCV MCH 27 L MCHC RDW 17.8 H Lymph % (Auto) Mason % (Auto) Eos % (Auto) Lymph # Mason # Eos # Seg Neutrophils % Seg Neuts % (Manual) Lymphocytes % (Manual) Monocytes % (Manual) Eosinophils % (Manual) Nucleated RBC % Seg Neutrophils # Seg Neutrophils # Man Lymphocytes # (Manual) Monocytes # (Manual) Eosinophils # (Manual) PT INR APTT POC ABG pH 7.330 L 7.313 L ABG pH POC ABG pCO2 52.5 H 51.1 H POC ABG pO2 77 L ABG pO2 ABG HCO3 ABG O2 Saturation ABG Base Excess ABG Hemoglobin Oxyhemoglobin Sodium Potassium Chloride Carbon Dioxide BUN Creatinine Glucose POC Glucose Uric Acid Calcium Phosphorus Magnesium AST ALT Total Creatine Kinase CK-MB (CK-2) Troponin T NT-Pro-B Natriuret Pep Total Protein Albumin Triglycerides HDL Cholesterol Urine WBC (Auto) Urine Creatinine Urine Total Protein Vancomycin Trough 05/25/19 05/26/19 05/26/19 15:45 04:13 05:00 WBC RBC 3.10 L Hgb 8.4 L Hct 26.0 L MCV MCH 27 L MCHC RDW 17.4 H Lymph % (Auto) Mason % (Auto) Eos % (Auto) Lymph # Mason # Eos # Seg Neutrophils % Seg Neuts % (Manual) Lymphocytes % (Manual) Monocytes % (Manual) Eosinophils % (Manual) Nucleated RBC % Seg Neutrophils # Seg Neutrophils # Man Lymphocytes # (Manual) Monocytes # (Manual) Eosinophils # (Manual) PT INR APTT POC ABG pH 7.295 L ABG pH POC ABG pCO2 56.5 H POC ABG pO2 63 L ABG pO2 ABG HCO3 ABG O2 Saturation ABG Base Excess ABG Hemoglobin Oxyhemoglobin Sodium 136 L Potassium Chloride 96.8 L Carbon Dioxide BUN 83 H Creatinine 5.9 H Glucose POC Glucose Uric Acid Calcium 7.6 L Phosphorus Magnesium AST ALT Total Creatine Kinase CK-MB (CK-2) Troponin T NT-Pro-B Natriuret Pep Total Protein Albumin Triglycerides HDL Cholesterol Urine WBC (Auto) Urine Creatinine Urine Total Protein Vancomycin Trough 05/26/19 05/27/19 05/28/19 05:00 04:48 04:47 WBC RBC Hgb Hct MCV MCH MCHC RDW Lymph % (Auto) Mason % (Auto) Eos % (Auto) Lymph # Mason # Eos # Seg Neutrophils % Seg Neuts % (Manual) Lymphocytes % (Manual) Monocytes % (Manual) Eosinophils % (Manual) Nucleated RBC % Seg Neutrophils # Seg Neutrophils # Man Lymphocytes # (Manual) Monocytes # (Manual) Eosinophils # (Manual) PT INR APTT POC ABG pH 7.323 L ABG pH 7.284 L POC ABG pCO2 56.2 H POC ABG pO2 ABG pO2 71.6 L ABG HCO3 ABG O2 Saturation 92.0 L ABG Base Excess ABG Hemoglobin 7.7 L Oxyhemoglobin 89.9 L Sodium 136 L Potassium Chloride 95.3 L Carbon Dioxide BUN 96 H Creatinine 6.5 H Glucose 108 H POC Glucose Uric Acid Calcium 7.6 L Phosphorus Magnesium AST ALT Total Creatine Kinase CK-MB (CK-2) Troponin T NT-Pro-B Natriuret Pep Total Protein Albumin Triglycerides HDL Cholesterol Urine WBC (Auto) Urine Creatinine Urine Total Protein Vancomycin Trough 05/28/19 05/29/19 05/29/19 12:30 12:47 23:44 WBC RBC Hgb Hct MCV MCH MCHC RDW Lymph % (Auto) Mason % (Auto) Eos % (Auto) Lymph # Mason # Eos # Seg Neutrophils % Seg Neuts % (Manual) Lymphocytes % (Manual) Monocytes % (Manual) Eosinophils % (Manual) Nucleated RBC % Seg Neutrophils # Seg Neutrophils # Man Lymphocytes # (Manual) Monocytes # (Manual) Eosinophils # (Manual) PT INR APTT POC ABG pH ABG pH POC ABG pCO2 POC ABG pO2 ABG pO2 ABG HCO3 ABG O2 Saturation ABG Base Excess ABG Hemoglobin Oxyhemoglobin Sodium 135 L Potassium Chloride 95.3 L Carbon Dioxide BUN 82 H Creatinine 6.0 H Glucose POC Glucose 136 H 159 H Uric Acid Calcium 7.5 L Phosphorus Magnesium AST ALT Total Creatine Kinase CK-MB (CK-2) Troponin T NT-Pro-B Natriuret Pep Total Protein Albumin Triglycerides HDL Cholesterol Urine WBC (Auto) Urine Creatinine Urine Total Protein Vancomycin Trough 05/30/19 05/30/19 05/30/19 04:30 05:38 12:00 WBC RBC 3.01 L Hgb 8.2 L Hct 25.3 L MCV MCH 27 L MCHC RDW 17.5 H Lymph % (Auto) Mason % (Auto) Eos % (Auto) Lymph # Mason # Eos # Seg Neutrophils % Seg Neuts % (Manual) 80.0 H Lymphocytes % (Manual) 10.0 L Monocytes % (Manual) Eosinophils % (Manual) Nucleated RBC % Seg Neutrophils # Seg Neutrophils # Man 8.0 H Lymphocytes # (Manual) 1.0 L Monocytes # (Manual) Eosinophils # (Manual) PT INR APTT POC ABG pH ABG pH POC ABG pCO2 POC ABG pO2 73 L ABG pO2 ABG HCO3 ABG O2 Saturation ABG Base Excess ABG Hemoglobin Oxyhemoglobin Sodium Potassium Chloride Carbon Dioxide BUN Creatinine Glucose POC Glucose 166 H Uric Acid Calcium Phosphorus Magnesium AST ALT Total Creatine Kinase CK-MB (CK-2) Troponin T NT-Pro-B Natriuret Pep Total Protein Albumin Triglycerides HDL Cholesterol Urine WBC (Auto) Urine Creatinine Urine Total Protein Vancomycin Trough 05/30/19 05/31/19 05/31/19 23:45 04:07 13:04 WBC 14.3 H RBC 2.88 L Hgb 7.7 L Hct 23.9 L MCV 83 L MCH 27 L MCHC RDW 17.8 H Lymph % (Auto) Mason % (Auto) Eos % (Auto) Lymph # Mason # Eos # Seg Neutrophils % Seg Neuts % (Manual) 83.0 H Lymphocytes % (Manual) 11.0 L Monocytes % (Manual) Eosinophils % (Manual) Nucleated RBC % Seg Neutrophils # Seg Neutrophils # Man 11.9 H Lymphocytes # (Manual) Monocytes # (Manual) 0.9 H Eosinophils # (Manual) PT INR APTT POC ABG pH ABG pH POC ABG pCO2 47.4 H POC ABG pO2 ABG pO2 ABG HCO3 ABG O2 Saturation ABG Base Excess ABG Hemoglobin Oxyhemoglobin Sodium Potassium Chloride Carbon Dioxide BUN Creatinine Glucose POC Glucose 209 H Uric Acid Calcium Phosphorus Magnesium AST ALT Total Creatine Kinase CK-MB (CK-2) Troponin T NT-Pro-B Natriuret Pep Total Protein Albumin Triglycerides HDL Cholesterol Urine WBC (Auto) Urine Creatinine Urine Total Protein Vancomycin Trough 05/31/19 05/31/19 06/01/19 13:04 16:42 00:15 WBC RBC Hgb Hct MCV MCH MCHC RDW Lymph % (Auto) Mason % (Auto) Eos % (Auto) Lymph # Mason # Eos # Seg Neutrophils % Seg Neuts % (Manual) Lymphocytes % (Manual) Monocytes % (Manual) Eosinophils % (Manual) Nucleated RBC % Seg Neutrophils # Seg Neutrophils # Man Lymphocytes # (Manual) Monocytes # (Manual) Eosinophils # (Manual) PT INR APTT POC ABG pH ABG pH POC ABG pCO2 POC ABG pO2 ABG pO2 ABG HCO3 ABG O2 Saturation ABG Base Excess ABG Hemoglobin Oxyhemoglobin Sodium 129 L Potassium Chloride 88.6 L Carbon Dioxide 19 L BUN 117 H Creatinine 6.7 H Glucose 205 H POC Glucose 228 H 223 H Uric Acid Calcium 7.4 L Phosphorus 7.40 H Magnesium AST 58 H ALT 149 H Total Creatine Kinase CK-MB (CK-2) Troponin T NT-Pro-B Natriuret Pep Total Protein 6.0 L Albumin 2.5 L Triglycerides HDL Cholesterol Urine WBC (Auto) Urine Creatinine Urine Total Protein Vancomycin Trough 06/01/19 06/01/19 06/01/19 04:33 05:27 12:31 WBC RBC Hgb Hct MCV MCH MCHC RDW Lymph % (Auto) Mason % (Auto) Eos % (Auto) Lymph # Mason # Eos # Seg Neutrophils % Seg Neuts % (Manual) Lymphocytes % (Manual) Monocytes % (Manual) Eosinophils % (Manual) Nucleated RBC % Seg Neutrophils # Seg Neutrophils # Man Lymphocytes # (Manual) Monocytes # (Manual) Eosinophils # (Manual) PT INR APTT POC ABG pH ABG pH POC ABG pCO2 POC ABG pO2 ABG pO2 56.9 L ABG HCO3 ABG O2 Saturation 85.9 L ABG Base Excess ABG Hemoglobin 8.1 L Oxyhemoglobin 83.6 L Sodium Potassium Chloride Carbon Dioxide BUN Creatinine Glucose POC Glucose 183 H 217 H Uric Acid Calcium Phosphorus Magnesium AST ALT Total Creatine Kinase CK-MB (CK-2) Troponin T NT-Pro-B Natriuret Pep Total Protein Albumin Triglycerides HDL Cholesterol Urine WBC (Auto) Urine Creatinine Urine Total Protein Vancomycin Trough 06/01/19 06/02/19 06/02/19 18:20 00:00 05:33 WBC RBC Hgb Hct MCV MCH MCHC RDW Lymph % (Auto) Mason % (Auto) Eos % (Auto) Lymph # Mason # Eos # Seg Neutrophils % Seg Neuts % (Manual) Lymphocytes % (Manual) Monocytes % (Manual) Eosinophils % (Manual) Nucleated RBC % Seg Neutrophils # Seg Neutrophils # Man Lymphocytes # (Manual) Monocytes # (Manual) Eosinophils # (Manual) PT INR APTT POC ABG pH ABG pH POC ABG pCO2 POC ABG pO2 ABG pO2 ABG HCO3 ABG O2 Saturation ABG Base Excess ABG Hemoglobin Oxyhemoglobin Sodium Potassium Chloride Carbon Dioxide BUN Creatinine Glucose POC Glucose 265 H 279 H 259 H Uric Acid Calcium Phosphorus Magnesium AST ALT Total Creatine Kinase CK-MB (CK-2) Troponin T NT-Pro-B Natriuret Pep Total Protein Albumin Triglycerides HDL Cholesterol Urine WBC (Auto) Urine Creatinine Urine Total Protein Vancomycin Trough 06/02/19 06/02/19 06/02/19 11:06 11:06 11:42 WBC 13.1 H RBC 2.92 L Hgb 7.9 L Hct 24.4 L MCV MCH 27 L MCHC RDW 17.4 H Lymph % (Auto) Mason % (Auto) Eos % (Auto) Lymph # Mason # Eos # Seg Neutrophils % Seg Neuts % (Manual) 78.0 H Lymphocytes % (Manual) 12.0 L Monocytes % (Manual) 10.0 H Eosinophils % (Manual) Nucleated RBC % Seg Neutrophils # Seg Neutrophils # Man 10.2 H Lymphocytes # (Manual) Monocytes # (Manual) 1.3 H Eosinophils # (Manual) PT INR APTT POC ABG pH ABG pH POC ABG pCO2 POC ABG pO2 ABG pO2 ABG HCO3 ABG O2 Saturation ABG Base Excess ABG Hemoglobin Oxyhemoglobin Sodium 135 L Potassium Chloride 94.7 L Carbon Dioxide 21 L BUN 107 H Creatinine 4.5 H Glucose 286 H POC Glucose 263 H Uric Acid Calcium 7.9 L Phosphorus 6.30 H Magnesium AST ALT 104 H Total Creatine Kinase CK-MB (CK-2) Troponin T NT-Pro-B Natriuret Pep Total Protein 6.0 L Albumin 2.7 L Triglycerides HDL Cholesterol Urine WBC (Auto) Urine Creatinine Urine Total Protein Vancomycin Trough 06/02/19 06/02/19 06/03/19 18:17 23:55 05:30 WBC RBC Hgb Hct MCV MCH MCHC RDW Lymph % (Auto) Mason % (Auto) Eos % (Auto) Lymph # Mason # Eos # Seg Neutrophils % Seg Neuts % (Manual) Lymphocytes % (Manual) Monocytes % (Manual) Eosinophils % (Manual) Nucleated RBC % Seg Neutrophils # Seg Neutrophils # Man Lymphocytes # (Manual) Monocytes # (Manual) Eosinophils # (Manual) PT INR APTT POC ABG pH ABG pH POC ABG pCO2 POC ABG pO2 ABG pO2 ABG HCO3 ABG O2 Saturation ABG Base Excess ABG Hemoglobin Oxyhemoglobin Sodium Potassium Chloride 95.1 L Carbon Dioxide 21 L BUN 119 H Creatinine 4.1 H Glucose 330 H POC Glucose 276 H 244 H Uric Acid Calcium 8.1 L Phosphorus Magnesium AST ALT 98 H Total Creatine Kinase CK-MB (CK-2) Troponin T NT-Pro-B Natriuret Pep Total Protein 5.8 L Albumin 2.8 L Triglycerides HDL Cholesterol Urine WBC (Auto) Urine Creatinine Urine Total Protein Vancomycin Trough 06/03/19 06/03/19 06/03/19 05:30 06:04 09:42 WBC 12.8 H RBC 3.01 L Hgb 8.2 L Hct 25.4 L MCV MCH 27 L MCHC RDW 17.5 H Lymph % (Auto) Mason % (Auto) Eos % (Auto) Lymph # Mason # Eos # Seg Neutrophils % Seg Neuts % (Manual) 78.0 H Lymphocytes % (Manual) 10.0 L Monocytes % (Manual) 12.0 H Eosinophils % (Manual) Nucleated RBC % Seg Neutrophils # Seg Neutrophils # Man 10.0 H Lymphocytes # (Manual) Monocytes # (Manual) 1.5 H Eosinophils # (Manual) PT INR APTT POC ABG pH ABG pH POC ABG pCO2 POC ABG pO2 ABG pO2 ABG HCO3 ABG O2 Saturation ABG Base Excess ABG Hemoglobin Oxyhemoglobin Sodium Potassium Chloride Carbon Dioxide BUN 106 H Creatinine Glucose POC Glucose 254 H Uric Acid Calcium Phosphorus Magnesium AST ALT Total Creatine Kinase CK-MB (CK-2) Troponin T NT-Pro-B Natriuret Pep Total Protein Albumin Triglycerides HDL Cholesterol Urine WBC (Auto) Urine Creatinine Urine Total Protein Vancomycin Trough 06/03/19 06/03/19 06/03/19 12:52 17:25 23:37 WBC RBC Hgb Hct MCV MCH MCHC RDW Lymph % (Auto) Mason % (Auto) Eos % (Auto) Lymph # Mason # Eos # Seg Neutrophils % Seg Neuts % (Manual) Lymphocytes % (Manual) Monocytes % (Manual) Eosinophils % (Manual) Nucleated RBC % Seg Neutrophils # Seg Neutrophils # Man Lymphocytes # (Manual) Monocytes # (Manual) Eosinophils # (Manual) PT INR APTT POC ABG pH ABG pH POC ABG pCO2 POC ABG pO2 ABG pO2 ABG HCO3 ABG O2 Saturation ABG Base Excess ABG Hemoglobin Oxyhemoglobin Sodium Potassium Chloride Carbon Dioxide BUN Creatinine Glucose POC Glucose 274 H 285 H 310 H Uric Acid Calcium Phosphorus Magnesium AST ALT Total Creatine Kinase CK-MB (CK-2) Troponin T NT-Pro-B Natriuret Pep Total Protein Albumin Triglycerides HDL Cholesterol Urine WBC (Auto) Urine Creatinine Urine Total Protein Vancomycin Trough 06/04/19 06/04/19 06/04/19 04:57 05:03 11:50 WBC RBC Hgb Hct MCV MCH MCHC RDW Lymph % (Auto) Mason % (Auto) Eos % (Auto) Lymph # Mason # Eos # Seg Neutrophils % Seg Neuts % (Manual) Lymphocytes % (Manual) Monocytes % (Manual) Eosinophils % (Manual) Nucleated RBC % Seg Neutrophils # Seg Neutrophils # Man Lymphocytes # (Manual) Monocytes # (Manual) Eosinophils # (Manual) PT INR APTT POC ABG pH 7.488 H ABG pH POC ABG pCO2 POC ABG pO2 ABG pO2 ABG HCO3 ABG O2 Saturation ABG Base Excess ABG Hemoglobin Oxyhemoglobin Sodium Potassium Chloride Carbon Dioxide BUN Creatinine Glucose POC Glucose 275 H 279 H Uric Acid Calcium Phosphorus Magnesium AST ALT Total Creatine Kinase CK-MB (CK-2) Troponin T NT-Pro-B Natriuret Pep Total Protein Albumin Triglycerides HDL Cholesterol Urine WBC (Auto) Urine Creatinine Urine Total Protein Vancomycin Trough 06/04/19 06/04/19 06/04/19 18:32 22:03 23:55 WBC RBC Hgb Hct MCV MCH MCHC RDW Lymph % (Auto) Mason % (Auto) Eos % (Auto) Lymph # Mason # Eos # Seg Neutrophils % Seg Neuts % (Manual) Lymphocytes % (Manual) Monocytes % (Manual) Eosinophils % (Manual) Nucleated RBC % Seg Neutrophils # Seg Neutrophils # Man Lymphocytes # (Manual) Monocytes # (Manual) Eosinophils # (Manual) PT INR APTT POC ABG pH ABG pH POC ABG pCO2 POC ABG pO2 ABG pO2 ABG HCO3 ABG O2 Saturation ABG Base Excess ABG Hemoglobin Oxyhemoglobin Sodium Potassium Chloride Carbon Dioxide BUN Creatinine Glucose POC Glucose 267 H 307 H 292 H Uric Acid Calcium Phosphorus Magnesium AST ALT Total Creatine Kinase CK-MB (CK-2) Troponin T NT-Pro-B Natriuret Pep Total Protein Albumin Triglycerides HDL Cholesterol Urine WBC (Auto) Urine Creatinine Urine Total Protein Vancomycin Trough 06/05/19 06/05/19 06/05/19 03:52 06:41 12:29 WBC RBC Hgb Hct MCV MCH MCHC RDW Lymph % (Auto) Mason % (Auto) Eos % (Auto) Lymph # Mason # Eos # Seg Neutrophils % Seg Neuts % (Manual) Lymphocytes % (Manual) Monocytes % (Manual) Eosinophils % (Manual) Nucleated RBC % Seg Neutrophils # Seg Neutrophils # Man Lymphocytes # (Manual) Monocytes # (Manual) Eosinophils # (Manual) PT INR APTT POC ABG pH 7.462 H ABG pH POC ABG pCO2 POC ABG pO2 ABG pO2 ABG HCO3 ABG O2 Saturation ABG Base Excess ABG Hemoglobin Oxyhemoglobin Sodium Potassium Chloride Carbon Dioxide BUN Creatinine Glucose POC Glucose 369 H 265 H Uric Acid Calcium Phosphorus Magnesium AST ALT Total Creatine Kinase CK-MB (CK-2) Troponin T NT-Pro-B Natriuret Pep Total Protein Albumin Triglycerides HDL Cholesterol Urine WBC (Auto) Urine Creatinine Urine Total Protein Vancomycin Trough 06/05/19 06/05/19 06/05/19 18:20 21:42 23:21 WBC RBC Hgb Hct MCV MCH MCHC RDW Lymph % (Auto) Mason % (Auto) Eos % (Auto) Lymph # Mason # Eos # Seg Neutrophils % Seg Neuts % (Manual) Lymphocytes % (Manual) Monocytes % (Manual) Eosinophils % (Manual) Nucleated RBC % Seg Neutrophils # Seg Neutrophils # Man Lymphocytes # (Manual) Monocytes # (Manual) Eosinophils # (Manual) PT INR APTT POC ABG pH ABG pH POC ABG pCO2 POC ABG pO2 ABG pO2 ABG HCO3 ABG O2 Saturation ABG Base Excess ABG Hemoglobin Oxyhemoglobin Sodium Potassium Chloride Carbon Dioxide BUN Creatinine Glucose POC Glucose 249 H 246 H 274 H Uric Acid Calcium Phosphorus Magnesium AST ALT Total Creatine Kinase CK-MB (CK-2) Troponin T NT-Pro-B Natriuret Pep Total Protein Albumin Triglycerides HDL Cholesterol Urine WBC (Auto) Urine Creatinine Urine Total Protein Vancomycin Trough 06/06/19 06/06/19 06/06/19 04:00 05:49 11:34 WBC 18.1 H RBC 3.53 L Hgb 9.5 L Hct 30.3 L MCV MCH 27 L MCHC 31 L RDW 19.5 H Lymph % (Auto) Mason % (Auto) Eos % (Auto) Lymph # Mason # Eos # Seg Neutrophils % Seg Neuts % (Manual) 87.0 H Lymphocytes % (Manual) 3.0 L Monocytes % (Manual) 8.0 H Eosinophils % (Manual) Nucleated RBC % Seg Neutrophils # Seg Neutrophils # Man 15.7 H Lymphocytes # (Manual) 0.5 L Monocytes # (Manual) 1.4 H Eosinophils # (Manual) PT INR APTT POC ABG pH ABG pH 7.472 H POC ABG pCO2 POC ABG pO2 ABG pO2 76.4 L ABG HCO3 28.1 H ABG O2 Saturation ABG Base Excess 4.3 H ABG Hemoglobin 12.5 L Oxyhemoglobin 93.8 L Sodium Potassium Chloride Carbon Dioxide BUN Creatinine Glucose POC Glucose 340 H Uric Acid Calcium Phosphorus Magnesium AST ALT Total Creatine Kinase CK-MB (CK-2) Troponin T NT-Pro-B Natriuret Pep Total Protein Albumin Triglycerides HDL Cholesterol Urine WBC (Auto) Urine Creatinine Urine Total Protein Vancomycin Trough 06/06/19 06/06/19 06/06/19 11:34 12:11 18:10 WBC RBC Hgb Hct MCV MCH MCHC RDW Lymph % (Auto) Mason % (Auto) Eos % (Auto) Lymph # Mason # Eos # Seg Neutrophils % Seg Neuts % (Manual) Lymphocytes % (Manual) Monocytes % (Manual) Eosinophils % (Manual) Nucleated RBC % Seg Neutrophils # Seg Neutrophils # Man Lymphocytes # (Manual) Monocytes # (Manual) Eosinophils # (Manual) PT INR APTT POC ABG pH ABG pH POC ABG pCO2 POC ABG pO2 ABG pO2 ABG HCO3 ABG O2 Saturation ABG Base Excess ABG Hemoglobin Oxyhemoglobin Sodium Potassium Chloride Carbon Dioxide BUN 70 H Creatinine Glucose 310 H POC Glucose 283 H 301 H Uric Acid Calcium 8.3 L Phosphorus 4.60 H Magnesium AST ALT 75 H Total Creatine Kinase CK-MB (CK-2) Troponin T NT-Pro-B Natriuret Pep Total Protein 5.6 L Albumin 2.9 L Triglycerides HDL Cholesterol Urine WBC (Auto) Urine Creatinine Urine Total Protein Vancomycin Trough 06/06/19 06/06/19 06/07/19 22:21 23:16 04:30 WBC RBC Hgb Hct MCV MCH MCHC RDW Lymph % (Auto) Mason % (Auto) Eos % (Auto) Lymph # Mason # Eos # Seg Neutrophils % Seg Neuts % (Manual) Lymphocytes % (Manual) Monocytes % (Manual) Eosinophils % (Manual) Nucleated RBC % Seg Neutrophils # Seg Neutrophils # Man Lymphocytes # (Manual) Monocytes # (Manual) Eosinophils # (Manual) PT INR APTT POC ABG pH ABG pH 7.480 H POC ABG pCO2 POC ABG pO2 ABG pO2 77.0 L ABG HCO3 27.2 H ABG O2 Saturation ABG Base Excess 3.5 H ABG Hemoglobin 7.1 L Oxyhemoglobin 94.2 L Sodium Potassium Chloride Carbon Dioxide BUN Creatinine Glucose POC Glucose 289 H 343 H Uric Acid Calcium Phosphorus Magnesium AST ALT Total Creatine Kinase CK-MB (CK-2) Troponin T NT-Pro-B Natriuret Pep Total Protein Albumin Triglycerides HDL Cholesterol Urine WBC (Auto) Urine Creatinine Urine Total Protein Vancomycin Trough 06/07/19 06/07/19 06/07/19 05:15 12:52 18:41 WBC RBC Hgb Hct MCV MCH MCHC RDW Lymph % (Auto) Mason % (Auto) Eos % (Auto) Lymph # Mason # Eos # Seg Neutrophils % Seg Neuts % (Manual) Lymphocytes % (Manual) Monocytes % (Manual) Eosinophils % (Manual) Nucleated RBC % Seg Neutrophils # Seg Neutrophils # Man Lymphocytes # (Manual) Monocytes # (Manual) Eosinophils # (Manual) PT INR APTT POC ABG pH ABG pH POC ABG pCO2 POC ABG pO2 ABG pO2 ABG HCO3 ABG O2 Saturation ABG Base Excess ABG Hemoglobin Oxyhemoglobin Sodium Potassium Chloride Carbon Dioxide BUN Creatinine Glucose POC Glucose 307 H 226 H 187 H Uric Acid Calcium Phosphorus Magnesium AST ALT Total Creatine Kinase CK-MB (CK-2) Troponin T NT-Pro-B Natriuret Pep Total Protein Albumin Triglycerides HDL Cholesterol Urine WBC (Auto) Urine Creatinine Urine Total Protein Vancomycin Trough 06/07/19 06/07/19 06/08/19 22:54 23:46 04:20 WBC 16.0 H RBC Hgb 10.0 L Hct 32.1 L MCV MCH 27 L MCHC 31 L RDW 19.4 H Lymph % (Auto) Mason % (Auto) Eos % (Auto) Lymph # Mason # Eos # Seg Neutrophils % Seg Neuts % (Manual) 87.0 H Lymphocytes % (Manual) 7.0 L Monocytes % (Manual) Eosinophils % (Manual) Nucleated RBC % Seg Neutrophils # Seg Neutrophils # Man 13.9 H Lymphocytes # (Manual) 1.1 L Monocytes # (Manual) 1.0 H Eosinophils # (Manual) PT INR APTT POC ABG pH ABG pH POC ABG pCO2 POC ABG pO2 ABG pO2 ABG HCO3 ABG O2 Saturation ABG Base Excess ABG Hemoglobin Oxyhemoglobin Sodium Potassium Chloride Carbon Dioxide BUN Creatinine Glucose POC Glucose 199 H 172 H Uric Acid Calcium Phosphorus Magnesium AST ALT Total Creatine Kinase CK-MB (CK-2) Troponin T NT-Pro-B Natriuret Pep Total Protein Albumin Triglycerides HDL Cholesterol Urine WBC (Auto) Urine Creatinine Urine Total Protein Vancomycin Trough 06/08/19 06/08/19 06/08/19 04:20 05:15 11:31 WBC RBC Hgb Hct MCV MCH MCHC RDW Lymph % (Auto) Mason % (Auto) Eos % (Auto) Lymph # Mason # Eos # Seg Neutrophils % Seg Neuts % (Manual) Lymphocytes % (Manual) Monocytes % (Manual) Eosinophils % (Manual) Nucleated RBC % Seg Neutrophils # Seg Neutrophils # Man Lymphocytes # (Manual) Monocytes # (Manual) Eosinophils # (Manual) PT INR APTT POC ABG pH ABG pH POC ABG pCO2 POC ABG pO2 ABG pO2 ABG HCO3 ABG O2 Saturation ABG Base Excess ABG Hemoglobin Oxyhemoglobin Sodium 146 H D Potassium Chloride Carbon Dioxide BUN 77 H Creatinine Glucose 205 H POC Glucose 209 H 181 H Uric Acid Calcium Phosphorus Magnesium AST ALT 66 H Total Creatine Kinase CK-MB (CK-2) Troponin T NT-Pro-B Natriuret Pep Total Protein 5.5 L Albumin 2.9 L Triglycerides HDL Cholesterol Urine WBC (Auto) Urine Creatinine Urine Total Protein Vancomycin Trough 06/08/19 06/08/19 06/09/19 17:28 23:24 05:20 WBC RBC Hgb Hct MCV MCH MCHC RDW Lymph % (Auto) Mason % (Auto) Eos % (Auto) Lymph # Mason # Eos # Seg Neutrophils % Seg Neuts % (Manual) Lymphocytes % (Manual) Monocytes % (Manual) Eosinophils % (Manual) Nucleated RBC % Seg Neutrophils # Seg Neutrophils # Man Lymphocytes # (Manual) Monocytes # (Manual) Eosinophils # (Manual) PT INR APTT POC ABG pH ABG pH POC ABG pCO2 POC ABG pO2 ABG pO2 ABG HCO3 ABG O2 Saturation ABG Base Excess ABG Hemoglobin Oxyhemoglobin Sodium Potassium Chloride Carbon Dioxide BUN Creatinine Glucose POC Glucose 215 H 200 H 173 H Uric Acid Calcium Phosphorus Magnesium AST ALT Total Creatine Kinase CK-MB (CK-2) Troponin T NT-Pro-B Natriuret Pep Total Protein Albumin Triglycerides HDL Cholesterol Urine WBC (Auto) Urine Creatinine Urine Total Protein Vancomycin Trough 06/09/19 06/09/19 06/09/19 12:07 18:32 23:51 WBC RBC Hgb Hct MCV MCH MCHC RDW Lymph % (Auto) Mason % (Auto) Eos % (Auto) Lymph # Mason # Eos # Seg Neutrophils % Seg Neuts % (Manual) Lymphocytes % (Manual) Monocytes % (Manual) Eosinophils % (Manual) Nucleated RBC % Seg Neutrophils # Seg Neutrophils # Man Lymphocytes # (Manual) Monocytes # (Manual) Eosinophils # (Manual) PT INR APTT POC ABG pH ABG pH POC ABG pCO2 POC ABG pO2 ABG pO2 ABG HCO3 ABG O2 Saturation ABG Base Excess ABG Hemoglobin Oxyhemoglobin Sodium Potassium Chloride Carbon Dioxide BUN Creatinine Glucose POC Glucose 117 H 169 H 147 H Uric Acid Calcium Phosphorus Magnesium AST ALT Total Creatine Kinase CK-MB (CK-2) Troponin T NT-Pro-B Natriuret Pep Total Protein Albumin Triglycerides HDL Cholesterol Urine WBC (Auto) Urine Creatinine Urine Total Protein Vancomycin Trough 06/10/19 06/10/19 06/10/19 05:45 05:45 06:01 WBC 14.6 H RBC Hgb 9.9 L Hct 32.2 L MCV MCH 27 L MCHC 31 L RDW 19.6 H Lymph % (Auto) 10.5 L Mason % (Auto) 9.4 H Eos % (Auto) Lymph # Mason # 1.4 H Eos # Seg Neutrophils % 79.9 H Seg Neuts % (Manual) Lymphocytes % (Manual) Monocytes % (Manual) Eosinophils % (Manual) Nucleated RBC % Seg Neutrophils # 11.7 H Seg Neutrophils # Man Lymphocytes # (Manual) Monocytes # (Manual) Eosinophils # (Manual) PT INR APTT POC ABG pH ABG pH POC ABG pCO2 POC ABG pO2 ABG pO2 ABG HCO3 ABG O2 Saturation ABG Base Excess ABG Hemoglobin Oxyhemoglobin Sodium 150 H Potassium Chloride 108.3 H Carbon Dioxide BUN 49 H Creatinine Glucose 172 H POC Glucose 165 H Uric Acid Calcium Phosphorus Magnesium 1.40 L AST ALT Total Creatine Kinase CK-MB (CK-2) Troponin T NT-Pro-B Natriuret Pep Total Protein Albumin Triglycerides HDL Cholesterol Urine WBC (Auto) Urine Creatinine Urine Total Protein Vancomycin Trough
[2019-06-10] MEDS: ENOXAPARIN 30 MG/0.3 ML INJ SUB-Q SCH (11:06)
[2019-06-10] MEDS: levETIRAcetam 750 MG in DEXTROSE 5% IN WATER 100 ML IV SCH ×2 (11:07→22:32)
[2019-06-10] MEDS: FAMOTIDINE 20 MG TAB PO SCH (11:08)
--- NOTE | 2019-06-10 12:39 | Progress Note ---
Assessment and Plan # Acute kidney injury on HD: creatinine had worsened, potentially from vancomycin toxicity, now HD dependent. Initially with suspected tubular injury in setting of sepsis, respiratory failure, hypotension. He is making urine now so hopeful for renal recovery; will follow labs/urine output for renal recovery- creatinine improved to 0.9 off HD for 2 days - hold HD for now, continue to trend labs and urine output and hold off HD if able - agree with D5W for hypernatremia - continue supportive measures, appreciate pulm and ID input - avoid nephrotoxins - appreciate vascular assistance with vas-cath placement - daily labs # HTN: BP reasonable. Will consider diuretic challenge rather than UF removal with HD if volume removal is needed to assist with respiratory status; avoid for now given free water deficit # Anemia: hemoglobin 10.0, pRBC transfusion prn. Hold ESAs # Encephalopathy, seizure disorder, hypoxic respiratory failure, fevers: ID and pulm following, improving We'll continue to follow and make recommendation from renal standpoint for this critically ill patient; we appreciate the opportunity to assist in his care. Subjective Date of service: 06/10/19 Principal diagnosis: HF; acute hypoxemic resp failure, SIRS, CARLA Interval history: No acute issues noted. Remains more alert and follows basic commands, on nasal cannula only Objective - Exam Narrative Exam: General: No acute distress. Alert but not oriented. Obese HEENT: NC/AT Neck: Supple Chest: decreased breath sounds Heart: Regular rate and rhythm Abdomen: Soft nontender Extremity: no edema Psych: no agitation Neuro: follows basic commands Derm: No petechial rash - Vital Signs Vital signs: Vital Signs - 12hr 06/10/19 06/10/19 06/10/19 01:00 01:31 02:00 Temperature Pulse Rate 100 H 102 H 99 H Pulse Rate [ From Monitor] Respiratory 25 H 26 H 23 Rate Blood Pressure 143/83 143/83 161/82 O2 Sat by Pulse 89 97 96 Oximetry 06/10/19 06/10/19 06/10/19 02:08 02:31 03:00 Temperature Pulse Rate 100 H 96 H 105 H Pulse Rate [ From Monitor] Respiratory 22 24 24 Rate Blood Pressure 161/82 175/80 156/78 O2 Sat by Pulse 97 93 96 Oximetry 06/10/19 06/10/19 06/10/19 03:31 03:46 04:00 Temperature 100.3 F H Pulse Rate 106 H 103 H Pulse Rate [ 111 H From Monitor] Respiratory 23 22 Rate Blood Pressure 156/78 139/83 O2 Sat by Pulse 95 96 Oximetry 06/10/19 06/10/19 04:31 08:45 Temperature Pulse Rate 108 H Pulse Rate [ From Monitor] Respiratory 21 Rate Blood Pressure 156/78 O2 Sat by Pulse 96 96 Oximetry - Lab 06/10/19 05:45 06/10/19 05:45 Most recent lab results ABG pH 7.480 pH Units (7.350-7.450) H 06/07/19 04:30 ABG pCO2 37.4 mm Hg 06/07/19 04:30 ABG pO2 77.0 mm Hg (80.0-90.0) L 06/07/19 04:30 ABG HCO3 27.2 mmol/L (20.0-26.0) H 06/07/19 04:30 ABG O2 Saturation 96.7 % (95.0-99.0) 06/07/19 04:30 Calcium 8.8 mg/dL (8.4-10.2) 06/10/19 05:45 Phosphorus 3.70 mg/dL (2.5-4.5) 06/10/19 05:45 Magnesium 1.40 mg/dL (1.7-2.3) L 06/10/19 05:45 Urine Creatinine 292.8 mg/dL (0.1-20.0) H 05/07/19 22:40 Urine Sodium 11 mmol/L 05/07/19 22:40 Urine Total Protein 269 mg/dL (5-11.8) H 05/07/19 22:40 Medications & Allergies - Medications Allergies/Adverse Reactions: Allergies No Known Allergies Allergy (Verified 05/01/19 20:27) Home Medications: Home Medications Medication Instructions Recorded Confirmed Last Taken Type No Known Home Medications [No 05/03/19 05/03/19 Unknown History Reported Home Medications] Active Medications: Generic Name Dose Route Start Last Admin Trade Name Freq PRN Reason Stop Dose Admin Albumin Human 25 gm 05/19/19 10:47 Alburx 25% (Albumin) IV ARIANE PRN Hypotension Lipase/Protease/Amylase 1 each 05/14/19 15:01 Pancreodalyse 10,500 Unit FEEDTUBE PRN PRN For Clogged Feeding Tube Clonidine HCl 0.3 mg 06/06/19 20:00 06/06/19 20:38 Catapres-Tts Patch TD 0.3 mg Lao VICKEY Administration Dextrose 50 gm 05/01/19 20:24 D50w (25gm) Vial IV Q30MIN PRN Hypoglycemia Protocol Enoxaparin Sodium 30 mg 05/16/19 10:00 06/10/19 11:06 Enoxaparin SUB-Q 30 mg QDAY VICKEY Administration Epoetin Hugo 10,000 unit 05/19/19 10:47 06/03/19 11:49 Procrit IV 10,000 unit ARIANE PRN Administration hemodialysis Famotidine 20 mg 05/16/19 10:00 06/10/19 11:08 Pepcid PO Not Given DAILY [facility] Hydralazine HCl 20 mg 05/13/19 08:09 06/09/19 18:35 Apresoline IV 20 mg Q4HR PRN Administration SBP >/=160 Levetiracetam 750 mg/ Dextrose 107.5 mls @ 400 mls/hr 06/09/19 22:00 06/10/19 11:07 IV 400 mls/hr Q12HR VICKEY Administration Dextrose 1,000 mls @ 125 mls/hr 06/10/19 08:00 D5w IV DIRECT VICKEY Insulin Glargine 20 units 06/07/19 22:00 06/09/19 21:51 Lantus SUB-Q 20 units QHS VICKEY Administration Insulin Human Lispro 0 unit 06/01/19 14:00 06/10/19 06:47 Humalog SUB-Q 3 unit Q6HR VICKEY Administration Protocol Labetalol HCl 10 mg 06/09/19 23:00 Labetalol IV Q4H PRN BP >170/105; hold for HR <60 Methylprednisolone Sodium Succinate 40 mg 06/10/19 14:00 Solu-Medrol IV Q8HR VICKEY Minoxidil 2.5 mg 06/06/19 22:00 06/10/19 11:08 Loniten PO Not Given BID VICKEY Simple Syrup 15 ml 05/14/19 15:01 Simple Syrup FEEDTUBE PRN PRN Hypoglycemia Simple Syrup 30 ml 05/14/19 15:01 Simple Syrup FEEDTUBE PRN PRN Hypoglycemia Sodium Bicarbonate 325 mg 05/14/19 15:01 Sodium Bicarbonate FEEDTUBE PRN PRN For Clogged Feeding Tube
--- NOTE | 2019-06-10 13:51 | Progress Note ---
Assessment and Plan Assessment and plan: 34-year-old man with morbid obesity was brought to the hospital for shortness of breath and insomnia. He was found to have severe hypoxia and bradycardia who then became pulseless, he was cyanotic and he was intubated after receiving CPR with 2 rounds of epinephrine. Acute respiratory failure with hypoxia on mechanical ventilator greater than 96 hours -Obesity hypoventilation Patient extubated 06/07 after being on the ventilator for 37 days, continue NIV at bedtime. Continue oxygen supplement in the daytime. Status post cardiac arrest Suspect anoxic/ischemic brain injury Patient's mentation is improved today., EEG and neurology consult. Need to exclude nonconvulsive seizures. He has been found multiple times nonresponsive and drooling. Severe malnutrition Dysphasia Continue speech therapy, continue scopolamine as patient had copious secretions, suctioning as needed Acute kidney injury/CKD stage V due to ATN Currently dialysis dependent Nephrology input appreciated, patient is nonoliguric, there is hope for renal recovery, follow-up labs and urine output Morbid obesity; will need weight loss program upon discharge DVT prophylaxis; Lovenox Disposition; does not have a pay source, therefore home with home health services History Interval history: No fevers No vomiting no seizure-like activity No diarrhea No agitation No obvious discomfort Hospitalist Physical - Physical exam Narrative exam: General.: Morbidly obese, patient is drooling HEENT: Moist mucous membranes, extraocular muscles intact, no lymphadenopathy Neck: supple Cardiac: S1-S2 heard Lungs: clear to auscultation bilaterally Abdomen: soft , nontender, nondistended, bowel sounds positive Extremities: no edema clubbing or cyanosis Skin: no rash or lesions Neurologic: He is awake and alert. He is currently nonverbal. But he nods and shakes his head. He obeys commands Psych: calm, - Constitutional Vitals: Temp Pulse Resp BP Pulse Ox 98.0 F 108 H 21 156/78 96 06/10/19 12:00 06/10/19 04:31 06/10/19 04:31 06/10/19 04:31 06/10/19 08:45 General appearance: Present: mild distress, obese Results - Labs CBC & Chem 7: 06/10/19 05:45 06/10/19 05:45 Labs: Laboratory Last Values WBC 14.6 K/mm3 (4.5-11.0) H 06/10/19 05:45 RBC 3.67 M/mm3 (3.65-5.03) 06/10/19 05:45 Hgb 9.9 gm/dl (11.8-15.2) L 06/10/19 05:45 Hct 32.2 % (35.5-45.6) L 06/10/19 05:45 MCV 88 fl (84-94) 06/10/19 05:45 MCH 27 pg (28-32) L 06/10/19 05:45 MCHC 31 % (32-34) L 06/10/19 05:45 RDW 19.6 % (13.2-15.2) H 06/10/19 05:45 Plt Count 206 K/mm3 (140-440) 06/10/19 05:45 Lymph % (Auto) 10.5 % (13.4-35.0) L 06/10/19 05:45 [place] % (Auto) 9.4 % (0.0-7.3) H 06/10/19 05:45 Eos % (Auto) 0.0 % (0.0-4.3) 06/10/19 05:45 Baso % (Auto) 0.2 % (0.0-1.8) 06/10/19 05:45 Lymph # 1.5 K/mm3 (1.2-5.4) 06/10/19 05:45 [place]win # 1.4 K/mm3 (0.0-0.8) H 06/10/19 05:45 Eos # 0.0 K/mm3 (0.0-0.4) 06/10/19 05:45 Baso # 0.0 K/mm3 (0.0-0.1) 06/10/19 05:45 Add Manual Diff Complete 06/08/19 04:20 Total Counted 100 06/08/19 04:20 Seg Neutrophils % 79.9 % (40.0-70.0) H 06/10/19 05:45 Seg Neuts % (Manual) 87.0 % (40.0-70.0) H 06/08/19 04:20 Band Neutrophils % 0 % 06/08/19 04:20 Lymphocytes % (Manual) 7.0 % (13.4-35.0) L 06/08/19 04:20 Reactive Lymphs % (Man) 0 % 06/08/19 04:20 Monocytes % (Manual) 6.0 % (0.0-7.3) 06/08/19 04:20 Eosinophils % (Manual) 0 % (0.0-4.3) 06/08/19 04:20 Basophils % (Manual) 0 % (0.0-1.8) 06/08/19 04:20 Metamyelocytes % 0 % 06/08/19 04:20 Myelocytes % 0 % 06/08/19 04:20 Promyelocytes % 0 % 06/08/19 04:20 Blast Cells % 0 % 06/08/19 04:20 Nucleated RBC % Not Reportable 06/08/19 04:20 Seg Neutrophils # 11.7 K/mm3 (1.8-7.7) H 06/10/19 05:45 Seg Neutrophils # Man 13.9 K/mm3 (1.8-7.7) H 06/08/19 04:20 Band Neutrophils # 0.0 K/mm3 06/08/19 04:20 Lymphocytes # (Manual) 1.1 K/mm3 (1.2-5.4) L 06/08/19 04:20 Abs React Lymphs (Man) 0.0 K/mm3 06/08/19 04:20 Monocytes # (Manual) 1.0 K/mm3 (0.0-0.8) H 06/08/19 04:20 Eosinophils # (Manual) 0.0 K/mm3 (0.0-0.4) 06/08/19 04:20 Basophils # (Manual) 0.0 K/mm3 (0.0-0.1) 06/08/19 04:20 Metamyelocytes # 0.0 K/mm3 06/08/19 04:20 Myelocytes # 0.0 K/mm3 06/08/19 04:20 Promyelocytes # 0.0 K/mm3 06/08/19 04:20 Blast Cells # 0.0 K/mm3 06/08/19 04:20 WBC Morphology Not Reportable 06/08/19 04:20 Hypersegmented Neuts Not Reportable 06/08/19 04:20 Hyposegmented Neuts Not Reportable 06/08/19 04:20 Hypogranular Neuts Not Reportable 06/08/19 04:20 Smudge Cells Not Reportable 06/08/19 04:20 Toxic Granulation Not Reportable 06/08/19 04:20 Toxic Vacuolation Not Reportable 06/08/19 04:20 Dohle Bodies Not Reportable 06/08/19 04:20 Pelger-Huet Anomaly Not Reportable 06/08/19 04:20 Renea Rods Not Reportable 06/08/19 04:20 Platelet Estimate Consistent w auto 06/08/19 04:20 Clumped Platelets Not Reportable 06/08/19 04:20 Plt Clumps, EDTA Not Reportable 06/08/19 04:20 Large Platelets Not Reportable 06/08/19 04:20 Giant Platelets Not Reportable 06/08/19 04:20 Platelet Satelliting Not Reportable 06/08/19 04:20 Plt Morphology Comment Not Reportable 06/08/19 04:20 RBC Morphology Not Reportable 06/08/19 04:20 Dimorphic RBCs Not Reportable 06/08/19 04:20 Polychromasia Not Reportable 06/08/19 04:20 Hypochromasia Not Reportable 06/08/19 04:20 Poikilocytosis Not Reportable 06/08/19 04:20 Anisocytosis Not Reportable 06/08/19 04:20 Microcytosis Not Reportable 06/08/19 04:20 Macrocytosis Not Reportable 06/08/19 04:20 Spherocytes Not Reportable 06/08/19 04:20 Pappenheimer Bodies Not Reportable 06/08/19 04:20 Sickle Cells Not Reportable 06/08/19 04:20 Target Cells Not Reportable 06/08/19 04:20 Tear Drop Cells Not Reportable 06/08/19 04:20 Ovalocytes Rare 06/08/19 04:20 Stomatocytes Few 06/08/19 04:20 Helmet Cells Not Reportable 06/08/19 04:20 [place] Bodies Not Reportable 06/08/19 04:20 [place] Rings Not Reportable 06/08/19 04:20 [place] Cells Not Reportable 06/08/19 04:20 Bite Cells Not Reportable 06/08/19 04:20 Crenated Cell Not Reportable 06/08/19 04:20 Elliptocytes Not Reportable 06/08/19 04:20 Acanthocytes (Spur) Not Reportable 06/08/19 04:20 Rouleaux Not Reportable 06/08/19 04:20 Hemoglobin C Crystals Not Reportable 06/08/19 04:20 Schistocytes Few 06/08/19 04:20 Malaria parasites Not Reportable 06/08/19 04:20 Syed Bodies Not Reportable 06/08/19 04:20 Hem Pathologist Commnt No 06/08/19 04:20 PT 15.4 Sec. (12.2-14.9) H 05/01/19 Unknown INR 1.23 (0.87-1.13) H 05/01/19 Unknown APTT 22.7 Sec. (24.2-36.6) L 05/01/19 Unknown POC ABG pH 7.462 (7.35-7.45) H 06/05/19 03:52 ABG pH 7.480 pH Units (7.350-7.450) H 06/07/19 04:30 POC ABG pCO2 39.8 (35-45) 06/05/19 03:52 ABG pCO2 37.4 mm Hg 06/07/19 04:30 POC ABG pO2 86 (80-105) 06/05/19 03:52 ABG pO2 77.0 mm Hg (80.0-90.0) L 06/07/19 04:30 POC ABG HCO3 28.4 (22-26 mml/L) 06/05/19 03:52 ABG HCO3 27.2 mmol/L (20.0-26.0) H 06/07/19 04:30 POC ABG Total CO2 30 (23-27mmol/L) 06/05/19 03:52 POC ABG O2 Sat 97 06/05/19 03:52 ABG O2 Saturation 96.7 % (95.0-99.0) 06/07/19 04:30 ABG O2 Content 9.5 (0.0-44) 06/07/19 04:30 POC ABG Base Excess 5 ((-2) - (+3)mmol/L) 06/05/19 03:52 ABG Base Excess 3.5 mmol/L (-2.0-3.0) H 06/07/19 04:30 ABG Hemoglobin 7.1 gm/dl (14.0-18.0) L 06/07/19 04:30 ABG Carboxyhemoglobin 2.1 % (0.0-5.0) 06/07/19 04:30 ABG Methemoglobin 0.4 % (0.0-1.5) 06/07/19 04:30 Oxyhemoglobin 94.2 % (95.0-99.0) L 06/07/19 04:30 FiO2 30 % 06/07/19 04:30 Sodium 150 mmol/L (137-145) H 06/10/19 05:45 Potassium 4.2 mmol/L (3.6-5.0) 06/10/19 05:45 Chloride 108.3 mmol/L (98-107) H 06/10/19 05:45 Carbon Dioxide 29 mmol/L (22-30) 06/10/19 05:45 Anion Gap 17 mmol/L 06/10/19 05:45 BUN 49 mg/dL (9-20) H 06/10/19 05:45 Creatinine 0.9 mg/dL (0.8-1.5) 06/10/19 05:45 Estimated GFR > 60 ml/min 06/10/19 05:45 BUN/Creatinine Ratio 54 % 06/10/19 05:45 Glucose 172 mg/dL (75-100) H 06/10/19 05:45 POC Glucose 150 (70-105) H 06/10/19 12:11 Osmolality 327 Mosm/kg 05/07/19 13:45 Uric Acid 18.0 mg/dL (3.5-7.6) H 05/07/19 13:45 Calcium 8.8 mg/dL (8.4-10.2) 06/10/19 05:45 Phosphorus 3.70 mg/dL (2.5-4.5) 06/10/19 05:45 Magnesium 1.40 mg/dL (1.7-2.3) L 06/10/19 05:45 Total Bilirubin 0.50 mg/dL (0.1-1.2) 06/08/19 04:20 AST 23 units/L (5-40) 06/08/19 04:20 ALT 66 units/L (7-56) H 06/08/19 04:20 Alkaline Phosphatase 59 units/L (35-129) 06/08/19 04:20 Total Creatine Kinase 131 units/L (55-170) 05/02/19 04:41 CK-MB (CK-2) 5.2 ng/mL (0.0-4.0) H 05/02/19 04:41 CK-MB (CK-2) Rel Index 3.9 (0-4) 05/02/19 04:41 Troponin T 0.067 ng/mL (0.00-0.029) H D 05/02/19 04:41 NT-Pro-B Natriuret Pep 6831 pg/mL (0-450) H 05/01/19 Unknown Total Protein 5.5 g/dL (6.3-8.2) L 06/08/19 04:20 Albumin 2.9 g/dL (3.9-5) L 06/08/19 04:20 Albumin/Globulin Ratio 1.1 % 06/08/19 04:20 Triglycerides 173 mg/dL (2-149) H 05/17/19 Unknown Cholesterol 173 mg/dL (50-199) 05/02/19 00:06 LDL Cholesterol Direct 126 mg/dL (50-130) 05/02/19 00:06 HDL Cholesterol 18 mg/dL (40-59) L 05/02/19 00:06 Cholesterol/HDL Ratio 9.61 % 05/02/19 00:06 Procalcitonin 0.54 ng/mL (<0.15) 05/03/19 11:52 Urine Color Yellow (Yellow) 05/20/19 12:00 Urine Turbidity Cloudy (Clear) 05/20/19 12:00 Urine pH 5.0 (5.0-7.0) 05/20/19 12:00 Ur Specific [place] 1.015 (1.003-1.030) 05/20/19 12:00 Urine Protein 30 mg/dl mg/dL (Negative) 05/20/19 12:00 Urine Glucose (UA) Neg mg/dL (Negative) 05/20/19 12:00 Urine Ketones Neg mg/dL (Negative) 05/20/19 12:00 Urine Blood Lg (Negative) 05/20/19 12:00 Urine Nitrite Neg (Negative) 05/20/19 12:00 Urine Bilirubin Neg (Negative) 05/20/19 12:00 Urine Urobilinogen < 2.0 mg/dL (<2.0) 05/20/19 12:00 Ur Leukocyte Esterase Mod (Negative) 05/20/19 12:00 Urine WBC (Auto) 26.0 /HPF (0.0-6.0) H 05/20/19 12:00 Urine RBC (Auto) 83.0 /HPF (0.0-6.0) 05/20/19 12:00 Urine Bacteria (Auto) 1+ /HPF (Negative) 05/20/19 12:00 Uric Acid Crystals 3+ 05/03/19 10:55 Urine Mucus Few /HPF 05/20/19 12:00 Urine Yeast (Budding) 3+ /HPF 05/20/19 12:00 Urine Creatinine 292.8 mg/dL (0.1-20.0) H 05/07/19 22:40 Urine Sodium 11 mmol/L 05/07/19 22:40 Urine Total Protein 269 mg/dL (5-11.8) H 05/07/19 22:40 Vancomycin Trough 20.5 ug/mL (5.0-20.0) H 05/15/19 09:00 Random Vancomycin 11.5 ug/mL (0-40.0) 05/27/19 06:00 AMNA Screen Negative (Negative) 05/07/19 13:45 Hepatitis A IgM Ab Non-reactive (NonReactive) 05/07/19 13:45 Hep Bs Antigen Non-reactive (Negative) 05/07/19 13:45 Hep B Core IgM Ab Non-reactive (NonReactive) 05/07/19 13:45 Hepatitis C Antibody Non-reactive (NonReactive) 05/07/19 13:45 Active Medications - Current Medications Current Medications: Generic Name Dose Route Start Last Admin Trade Name Freq PRN Reason Stop Dose Admin Albumin Human 25 gm 05/19/19 10:47 Alburx 25% (Albumin) IV ARIANE PRN Hypotension Lipase/Protease/Amylase 1 each 05/14/19 15:01 Pancreaze 10,500 Unit FEEDTUBE PRN PRN For Clogged Feeding Tube Clonidine HCl 0.3 mg 06/06/19 20:00 06/06/19 20:38 Catapres-Tts Patch TD 0.3 mg Lao VICKEY Administration Dextrose 50 gm 05/01/19 20:24 D50w (25gm) Vial IV Q30MIN PRN Hypoglycemia Protocol Enoxaparin Sodium 30 mg 05/16/19 10:00 06/10/19 11:06 Enoxaparin SUB-Q 30 mg QDAY VICKEY Administration Famotidine 20 mg 05/16/19 10:00 06/10/19 11:08 Pepcid PO Not Given DAILY [facility] Hydralazine HCl 20 mg 05/13/19 08:09 06/09/19 18:35 Apresoline IV 20 mg Q4HR PRN Administration SBP >/=160 Levetiracetam 750 mg/ Dextrose 107.5 mls @ 400 mls/hr 06/09/19 22:00 06/10/19 11:07 IV 400 mls/hr Q12HR VICKEY Administration Dextrose 1,000 mls @ 125 mls/hr 06/10/19 08:00 D5w IV DIRECT VICKEY Insulin Glargine 20 units 06/07/19 22:00 06/09/19 21:51 Lantus SUB-Q 20 units QHS VICKEY Administration Insulin Human Lispro 0 unit 06/01/19 14:00 06/10/19 06:47 Humalog SUB-Q 3 unit Q6HR VICKEY Administration Protocol Labetalol HCl 10 mg 06/09/19 23:00 Labetalol IV Q4H PRN BP >170/105; hold for HR <60 Methylprednisolone Sodium Succinate 40 mg 06/10/19 14:00 Solu-Medrol IV Q8HR [facility] Minoxidil 2.5 mg 06/06/19 22:00 06/10/19 11:08 Loniten PO Not Given BID VICKEY Simple Syrup 15 ml 05/14/19 15:01 Simple Syrup FEEDTUBE PRN PRN Hypoglycemia Simple Syrup 30 ml 05/14/19 15:01 Simple Syrup FEEDTUBE PRN PRN Hypoglycemia Sodium Bicarbonate 325 mg 05/14/19 15:01 Sodium Bicarbonate FEEDTUBE PRN PRN For Clogged Feeding Tube Nutrition/Malnutrition Assess - Dietary Evaluation Nutrition/Malnutrition Findings: Nutrition Notes Start: 05/04/19 12:54 Freq: Status: Active Protocol: Document 06/10/19 12:28 CW (Rec: 06/10/19 12:53 CW [id number]) Co-Sign 06/10/19 12:28 LP Nutrition Notes Initial or Follow up Reassessment Current Diagnosis Acute Kidney Injury,Sepsis, Respiratory Failure Other Pertinent Diagnosis on HD Current Diet Nepro 1.8 at 50 ml/hr Labs/Tests Na 150 BUN 49 BG 172 POC 165 Pertinent Medications Humalog Solumedrol Enoxaparin Height 6 ft 4 in Weight 257.2 kg [place] Body Weight (kg) 91.81 BMI 69.0 Weight change and time frame No wt change noted Weight Status Morbidly Obese Subjective/Other Information Pt tolerating Nepro at 50ml/hr . Pt on HD. Pt Extubated on . [employer] attempted swallow eval but was unable to complete / D/T biPAP Percent of energy/protein needs met: 100%/43% Burn Absent Trauma Absent Current % PO Negligible Minimum of two criteria No physical signs of malnutrition #1 Nutrition Diagnosis Inadequate oral intake Diagnosis Progress(for reassessment Continues documentation) Is patient on ventilator? No Is Patient Ambulatory and/or Out of Bed No REE-([facility]-confined to bed) 4342.284 Kcal/Kg value to use for calculation 8 Approximate Energy Requirements Using 8 kcal/Kg Calculation Used for Recommendations Kcal/kg Additional Notes PRO needs: 225 g (up to 2.5 g/ kg IBW) Fluid needs: 1 ml/kcal Nutrition Intervention Change Diet Order: Continue TF Nutrition Support: Nepro 1.8 at 50 ml/hr Flush with 150ml q4h Kcal 2,160 Protein (gm) 97 Fluid (mL) 872 Goal #1 TF tolerance Goal #2 Meet at least 75% kcal/PRO needs via TF Goal #3 diet advancement Anticipated Discharge Needs: Unable to determine at this time Follow-Up By: 06/21/19 Additional Comments Follow for TF tolerance/ diet advancement
--- NOTE | 2019-06-10 19:40 | Consultation ---
History of Present Illness Consult date: 06/10/19 Reason for Consult: Altered mental status Chief complaint: Altered mental status History of present illness: Patient is a 34-year-old man with a history of obesity. Patient presented on 05/01/2019 with shortness of breath. The patient reportedly was found to be in severe hypoxia, and bradycardia. Patient went into respiratory arrest, and coded. He required intubation, and reportedly required CPR. Patient was also found to have CARLA. Through the course of admission, patient was ultimately extubated on 06/07/2019. EEG was performed earlier in the admission, which did not show any seizures, and showed generalized slowing. Neurology was consulted for altered mental status. Past History Past Medical History: other (unknown) Social history: other (unknown) Family history: no significant family history (unable to obtain, intubated) Medications and Allergies Allergies Allergy/AdvReac Type Severity Reaction Status Date / Time No Known Allergies Allergy Verified 05/01/19 20:27 Home Medications Medication Instructions Recorded Confirmed Last Taken Type No Known Home Medications [No 05/03/19 05/03/19 Unknown History Reported Home Medications] Active Meds: Active Medications Albumin Human (Alburx 25% (Albumin)) 25 gm IV ARIANE PRN PRN Reason: Hypotension Lipase/Protease/Amylase (Pancreaze Dr 10,500 Unit) 1 each FEEDTUBE PRN PRN PRN Reason: For Clogged Feeding Tube Clonidine HCl (Catapres-Tts Patch) 0.3 mg TD Lao [facility] Last Admin: 06/06/19 20:38 Dose: 0.3 mg Documented by: Dextrose (D50w (25gm) Vial) 50 gm IV Q30MIN PRN; Protocol PRN Reason: Hypoglycemia Enoxaparin Sodium (Enoxaparin) 30 mg SUB-Q QDAY [facility] Last Admin: 06/10/19 11:06 Dose: 30 mg Documented by: Famotidine (Pepcid) 20 mg PO DAILY [facility] Last Admin: 06/10/19 11:08 Dose: Not Given Documented by: Hydralazine HCl (Apresoline) 20 mg IV Q4HR PRN PRN Reason: SBP >/=160 Last Admin: 06/09/19 18:35 Dose: 20 mg Documented by: Levetiracetam 750 mg/ Dextrose 107.5 mls @ 400 mls/hr IV Q12HR [facility] Last Admin: 06/10/19 11:07 Dose: 400 mls/hr Documented by: Dextrose (D5w) 1,000 mls @ 125 mls/hr IV DIRECT [facility] Insulin Glargine (Lantus) 20 units SUB-Q QHS [facility] Last Admin: 06/09/19 21:51 Dose: 20 units Documented by: Insulin Human Lispro (Humalog) 0 unit SUB-Q Q6HR [facility]; Protocol Last Admin: 06/10/19 06:47 Dose: 3 unit Documented by: Labetalol HCl (Labetalol) 10 mg IV Q4H PRN PRN Reason: BP >170/105; hold for HR <60 Methylprednisolone Sodium Succinate (Solu-Medrol) 40 mg IV Q8HR [facility] Last Admin: 06/10/19 15:48 Dose: 40 mg Documented by: Minoxidil (Loniten) 2.5 mg PO BID [facility] Last Admin: 06/10/19 11:08 Dose: Not Given Documented by: Simple Syrup (Simple Syrup) 15 ml FEEDTUBE PRN PRN PRN Reason: Hypoglycemia Simple Syrup (Simple Syrup) 30 ml FEEDTUBE PRN PRN PRN Reason: Hypoglycemia Sodium Bicarbonate (Sodium Bicarbonate) 325 mg FEEDTUBE PRN PRN PRN Reason: For Clogged Feeding Tube Review of Systems ROS unobtainable: due to mental status Physical Examination - Vital Signs Vital Signs: Vital Signs Temp Pulse Resp BP Pulse Ox 98.1 F 109 H 24 145/85 84 05/01/19 15:57 05/01/19 15:57 05/01/19 15:57 05/01/19 15:57 05/01/19 15:57 - Physical Exam Narrative exam: Patient is alert, awake, attempts to mouth words however unable to say any actual words, follows midline commands intermittently. PERRL, EOMI, VFF to threat, no facial weakness noted. UE 3/5, LE 2/5. W/d to pain in all extremities. 2+ reflexes throughout. - Constitutional General appearance: comfortable - EENT EENT: Present: ATNC, PERRL, mucous membranes moist - Respiratory Respiratory: Present: decreased breath sounds - Cardiovascular Cardiovascular: Present: regular rate, normal S1, normal S2 Extremities: Present: no clubbing, cyanosis - Gastrointestinal Gastrointestinal: Present: normoactive bowel sounds, soft, non-tender Results - Laboratory Findings CBC and BMP: 06/10/19 05:45 06/10/19 05:45 Abnormal Lab Findings: Abnormal Labs 05/01/19 05/01/19 05/01/19 17:50 19:26 22:36 WBC RBC Hgb Hct MCV MCH MCHC RDW Lymph % (Auto) [place] % (Auto) Eos % (Auto) Lymph # [place] # Eos # Seg Neutrophils % Seg Neuts % (Manual) Lymphocytes % (Manual) Monocytes % (Manual) Eosinophils % (Manual) Nucleated RBC % Seg Neutrophils # Seg Neutrophils # Man Lymphocytes # (Manual) Monocytes # (Manual) Eosinophils # (Manual) PT INR APTT POC ABG pH 7.272 L 7.331 L ABG pH POC ABG pCO2 52.8 H POC ABG pO2 ABG pO2 ABG HCO3 ABG O2 Saturation ABG Base Excess ABG Hemoglobin Oxyhemoglobin Sodium 136 L Potassium 6.5 H* Chloride 97.2 L Carbon Dioxide BUN 60 H Creatinine Glucose 113 H POC Glucose Uric Acid Calcium Phosphorus Magnesium 2.40 H AST 139 H ALT 154 H Total Creatine Kinase CK-MB (CK-2) Troponin T NT-Pro-B Natriuret Pep Total Protein Albumin 3.8 L Triglycerides HDL Cholesterol Urine WBC (Auto) Urine Creatinine Urine Total Protein Vancomycin Trough 05/01/19 05/01/19 05/01/19 Unknown Unknown Unknown WBC 16.1 H RBC Hgb Hct MCV MCH MCHC RDW 17.2 H Lymph % (Auto) [place] % (Auto) 9.6 H Eos % (Auto) Lymph # [place] # 1.5 H Eos # Seg Neutrophils % 73.0 H Seg Neuts % (Manual) Lymphocytes % (Manual) Monocytes % (Manual) Eosinophils % (Manual) Nucleated RBC % Seg Neutrophils # 11.7 H Seg Neutrophils # Man Lymphocytes # (Manual) Monocytes # (Manual) Eosinophils # (Manual) PT 15.4 H INR 1.23 H APTT 22.7 L POC ABG pH ABG pH POC ABG pCO2 POC ABG pO2 ABG pO2 ABG HCO3 ABG O2 Saturation ABG Base Excess ABG Hemoglobin Oxyhemoglobin Sodium Potassium Chloride Carbon Dioxide BUN Creatinine Glucose POC Glucose Uric Acid Calcium Phosphorus Magnesium AST ALT Total Creatine Kinase CK-MB (CK-2) Troponin T NT-Pro-B Natriuret Pep 6831 H Total Protein Albumin Triglycerides HDL Cholesterol Urine WBC (Auto) Urine Creatinine Urine Total Protein Vancomycin Trough 05/01/19 05/02/19 05/02/19 Unknown 00:06 00:06 WBC RBC Hgb Hct MCV MCH MCHC RDW Lymph % (Auto) [place] % (Auto) Eos % (Auto) Lymph # [place] # Eos # Seg Neutrophils % Seg Neuts % (Manual) Lymphocytes % (Manual) Monocytes % (Manual) Eosinophils % (Manual) Nucleated RBC % Seg Neutrophils # Seg Neutrophils # Man Lymphocytes # (Manual) Monocytes # (Manual) Eosinophils # (Manual) PT INR APTT POC ABG pH ABG pH POC ABG pCO2 POC ABG pO2 ABG pO2 ABG HCO3 ABG O2 Saturation ABG Base Excess ABG Hemoglobin Oxyhemoglobin Sodium Potassium Chloride Carbon Dioxide BUN Creatinine Glucose POC Glucose Uric Acid Calcium Phosphorus 4.90 H Magnesium AST ALT Total Creatine Kinase 226 H CK-MB (CK-2) 5.7 H Troponin T 0.044 H NT-Pro-B Natriuret Pep Total Protein Albumin Triglycerides 182 H HDL Cholesterol 18 L Urine WBC (Auto) Urine Creatinine Urine Total Protein Vancomycin Trough 05/02/19 05/02/19 05/02/19 02:08 04:40 04:41 WBC 17.6 H RBC Hgb Hct MCV MCH 27 L MCHC RDW 17.4 H Lymph % (Auto) 10.2 L [place] % (Auto) 11.0 H Eos % (Auto) Lymph # [place] # 1.9 H Eos # Seg Neutrophils % 78.0 H Seg Neuts % (Manual) Lymphocytes % (Manual) Monocytes % (Manual) Eosinophils % (Manual) Nucleated RBC % Seg Neutrophils # 13.8 H Seg Neutrophils # Man Lymphocytes # (Manual) Monocytes # (Manual) Eosinophils # (Manual) PT INR APTT POC ABG pH ABG pH POC ABG pCO2 46.8 H POC ABG pO2 63 L ABG pO2 ABG HCO3 ABG O2 Saturation ABG Base Excess ABG Hemoglobin Oxyhemoglobin Sodium Potassium Chloride 96.3 L Carbon Dioxide BUN 63 H Creatinine 1.7 H Glucose POC Glucose Uric Acid Calcium Phosphorus Magnesium AST ALT Total Creatine Kinase CK-MB (CK-2) Troponin T NT-Pro-B Natriuret Pep Total Protein Albumin Triglycerides HDL Cholesterol Urine WBC (Auto) Urine Creatinine Urine Total Protein Vancomycin Trough 05/02/19 05/02/19 05/02/19 04:41 04:41 16:05 WBC RBC Hgb Hct MCV MCH MCHC RDW Lymph % (Auto) [place] % (Auto) Eos % (Auto) Lymph # [place] # Eos # Seg Neutrophils % Seg Neuts % (Manual) Lymphocytes % (Manual) Monocytes % (Manual) Eosinophils % (Manual) Nucleated RBC % Seg Neutrophils # Seg Neutrophils # Man Lymphocytes # (Manual) Monocytes # (Manual) Eosinophils # (Manual) PT INR APTT POC ABG pH ABG pH POC ABG pCO2 POC ABG pO2 ABG pO2 66.6 L ABG HCO3 31.9 H ABG O2 Saturation 92.5 L ABG Base Excess 5.8 H ABG Hemoglobin 13.3 L Oxyhemoglobin 90.6 L Sodium Potassium Chloride 97.2 L Carbon Dioxide BUN 61 H Creatinine 1.8 H Glucose POC Glucose Uric Acid Calcium Phosphorus Magnesium AST ALT Total Creatine Kinase CK-MB (CK-2) 5.2 H Troponin T 0.067 H D NT-Pro-B Natriuret Pep Total Protein Albumin Triglycerides HDL Cholesterol Urine WBC (Auto) Urine Creatinine Urine Total Protein Vancomycin Trough 05/02/19 05/03/19 05/03/19 20:39 04:35 05:05 WBC 11.8 H RBC Hgb Hct MCV MCH 27 L MCHC 31 L RDW 17.2 H Lymph % (Auto) [place] % (Auto) Eos % (Auto) Lymph # [place] # Eos # Seg Neutrophils % Seg Neuts % (Manual) Lymphocytes % (Manual) Monocytes % (Manual) Eosinophils % (Manual) Nucleated RBC % Seg Neutrophils # Seg Neutrophils # Man Lymphocytes # (Manual) Monocytes # (Manual) Eosinophils # (Manual) PT INR APTT POC ABG pH ABG pH POC ABG pCO2 53.6 H 54.0 H POC ABG pO2 55 L 63 L ABG pO2 ABG HCO3 ABG O2 Saturation ABG Base Excess ABG Hemoglobin Oxyhemoglobin Sodium Potassium Chloride Carbon Dioxide BUN Creatinine Glucose POC Glucose Uric Acid Calcium Phosphorus Magnesium AST ALT Total Creatine Kinase CK-MB (CK-2) Troponin T NT-Pro-B Natriuret Pep Total Protein Albumin Triglycerides HDL Cholesterol Urine WBC (Auto) Urine Creatinine Urine Total Protein Vancomycin Trough 05/03/19 05/03/19 05/03/19 05:05 10:55 16:48 WBC RBC Hgb Hct MCV MCH MCHC RDW Lymph % (Auto) [place] % (Auto) Eos % (Auto) Lymph # [place] # Eos # Seg Neutrophils % Seg Neuts % (Manual) Lymphocytes % (Manual) Monocytes % (Manual) Eosinophils % (Manual) Nucleated RBC % Seg Neutrophils # Seg Neutrophils # Man Lymphocytes # (Manual) Monocytes # (Manual) Eosinophils # (Manual) PT INR APTT POC ABG pH 7.604 H ABG pH POC ABG pCO2 POC ABG pO2 58 L ABG pO2 ABG HCO3 ABG O2 Saturation ABG Base Excess ABG Hemoglobin Oxyhemoglobin Sodium Potassium Chloride Carbon Dioxide BUN 52 H Creatinine 1.9 H Glucose 103 H POC Glucose Uric Acid Calcium Phosphorus Magnesium AST ALT Total Creatine Kinase CK-MB (CK-2) Troponin T NT-Pro-B Natriuret Pep Total Protein Albumin Triglycerides HDL Cholesterol Urine WBC (Auto) 33.0 H Urine Creatinine Urine Total Protein Vancomycin Trough 05/04/19 05/04/19 05/04/19 04:49 06:50 06:50 WBC 16.0 H RBC Hgb Hct MCV MCH 27 L MCHC 31 L RDW 17.8 H Lymph % (Auto) [place] % (Auto) Eos % (Auto) Lymph # [place] # Eos # Seg Neutrophils % Seg Neuts % (Manual) Lymphocytes % (Manual) Monocytes % (Manual) Eosinophils % (Manual) Nucleated RBC % Seg Neutrophils # Seg Neutrophils # Man Lymphocytes # (Manual) Monocytes # (Manual) Eosinophils # (Manual) PT INR APTT POC ABG pH 7.273 L ABG pH POC ABG pCO2 POC ABG pO2 ABG pO2 ABG HCO3 ABG O2 Saturation ABG Base Excess ABG Hemoglobin Oxyhemoglobin Sodium 148 H Potassium 5.5 H Chloride Carbon Dioxide BUN 53 H Creatinine 3.3 H D Glucose 106 H POC Glucose Uric Acid Calcium 8.3 L Phosphorus Magnesium AST ALT Total Creatine Kinase CK-MB (CK-2) Troponin T NT-Pro-B Natriuret Pep Total Protein Albumin Triglycerides HDL Cholesterol Urine WBC (Auto) Urine Creatinine Urine Total Protein Vancomycin Trough 05/05/19 05/05/19 05/05/19 00:05 04:30 05:00 WBC RBC Hgb Hct MCV MCH MCHC RDW Lymph % (Auto) [place] % (Auto) Eos % (Auto) Lymph # [place] # Eos # Seg Neutrophils % Seg Neuts % (Manual) Lymphocytes % (Manual) Monocytes % (Manual) Eosinophils % (Manual) Nucleated RBC % Seg Neutrophils # Seg Neutrophils # Man Lymphocytes # (Manual) Monocytes # (Manual) Eosinophils # (Manual) PT INR APTT POC ABG pH 7.225 L ABG pH POC ABG pCO2 > 70 H POC ABG pO2 ABG pO2 ABG HCO3 ABG O2 Saturation ABG Base Excess ABG Hemoglobin Oxyhemoglobin Sodium 151 H Potassium 5.1 H Chloride Carbon Dioxide BUN 64 H Creatinine 3.5 H Glucose 117 H POC Glucose 141 H Uric Acid Calcium 7.5 L Phosphorus Magnesium AST 93 H ALT 65 H Total Creatine Kinase CK-MB (CK-2) Troponin T NT-Pro-B Natriuret Pep Total Protein Albumin 2.9 L Triglycerides HDL Cholesterol Urine WBC (Auto) Urine Creatinine Urine Total Protein Vancomycin Trough 05/05/19 05/05/19 05/05/19 05:00 12:02 17:46 WBC 12.0 H RBC Hgb 11.3 L Hct MCV MCH 27 L MCHC 30 L RDW 18.4 H Lymph % (Auto) 7.9 L [place] % (Auto) 10.2 H Eos % (Auto) Lymph # 1.0 L [place] # 1.2 H Eos # Seg Neutrophils % 80.8 H Seg Neuts % (Manual) Lymphocytes % (Manual) Monocytes % (Manual) Eosinophils % (Manual) Nucleated RBC % Seg Neutrophils # 9.7 H Seg Neutrophils # Man Lymphocytes # (Manual) Monocytes # (Manual) Eosinophils # (Manual) PT INR APTT POC ABG pH ABG pH POC ABG pCO2 POC ABG pO2 ABG pO2 ABG HCO3 ABG O2 Saturation ABG Base Excess ABG Hemoglobin Oxyhemoglobin Sodium Potassium Chloride Carbon Dioxide BUN Creatinine Glucose POC Glucose 125 H 112 H Uric Acid Calcium Phosphorus Magnesium AST ALT Total Creatine Kinase CK-MB (CK-2) Troponin T NT-Pro-B Natriuret Pep Total Protein Albumin Triglycerides HDL Cholesterol Urine WBC (Auto) Urine Creatinine Urine Total Protein Vancomycin Trough 05/05/19 05/06/19 05/06/19 23:42 03:58 04:45 WBC 11.4 H RBC Hgb 10.7 L Hct 34.2 L MCV MCH 27 L MCHC 31 L RDW 16.9 H Lymph % (Auto) [place] % (Auto) Eos % (Auto) Lymph # [place] # Eos # Seg Neutrophils % Seg Neuts % (Manual) Lymphocytes % (Manual) Monocytes % (Manual) Eosinophils % (Manual) Nucleated RBC % Seg Neutrophils # Seg Neutrophils # Man Lymphocytes # (Manual) Monocytes # (Manual) Eosinophils # (Manual) PT INR APTT POC ABG pH ABG pH POC ABG pCO2 62.4 H POC ABG pO2 111 H ABG pO2 ABG HCO3 ABG O2 Saturation ABG Base Excess ABG Hemoglobin Oxyhemoglobin Sodium Potassium Chloride Carbon Dioxide BUN Creatinine Glucose POC Glucose 128 H Uric Acid Calcium Phosphorus Magnesium AST ALT Total Creatine Kinase CK-MB (CK-2) Troponin T NT-Pro-B Natriuret Pep Total Protein Albumin Triglycerides HDL Cholesterol Urine WBC (Auto) Urine Creatinine Urine Total Protein Vancomycin Trough 05/06/19 05/06/19 05/06/19 04:45 05:33 12:30 WBC RBC Hgb Hct MCV MCH MCHC RDW Lymph % (Auto) [place] % (Auto) Eos % (Auto) Lymph # [place] # Eos # Seg Neutrophils % Seg Neuts % (Manual) Lymphocytes % (Manual) Monocytes % (Manual) Eosinophils % (Manual) Nucleated RBC % Seg Neutrophils # Seg Neutrophils # Man Lymphocytes # (Manual) Monocytes # (Manual) Eosinophils # (Manual) PT INR APTT POC ABG pH ABG pH POC ABG pCO2 POC ABG pO2 ABG pO2 ABG HCO3 ABG O2 Saturation ABG Base Excess ABG Hemoglobin Oxyhemoglobin Sodium 149 H Potassium Chloride Carbon Dioxide 31 H BUN 67 H Creatinine 3.2 H Glucose 125 H POC Glucose 117 H 116 H Uric Acid Calcium 7.5 L Phosphorus Magnesium AST ALT Total Creatine Kinase CK-MB (CK-2) Troponin T NT-Pro-B Natriuret Pep Total Protein Albumin Triglycerides HDL Cholesterol Urine WBC (Auto) Urine Creatinine Urine Total Protein Vancomycin Trough 05/06/19 05/06/19 05/07/19 18:34 23:16 05:22 WBC RBC Hgb Hct MCV MCH MCHC RDW Lymph % (Auto) [place] % (Auto) Eos % (Auto) Lymph # [place] # Eos # Seg Neutrophils % Seg Neuts % (Manual) Lymphocytes % (Manual) Monocytes % (Manual) Eosinophils % (Manual) Nucleated RBC % Seg Neutrophils # Seg Neutrophils # Man Lymphocytes # (Manual) Monocytes # (Manual) Eosinophils # (Manual) PT INR APTT POC ABG pH ABG pH POC ABG pCO2 POC ABG pO2 ABG pO2 ABG HCO3 ABG O2 Saturation ABG Base Excess ABG Hemoglobin Oxyhemoglobin Sodium Potassium Chloride Carbon Dioxide BUN Creatinine Glucose POC Glucose 128 H 143 H 166 H Uric Acid Calcium Phosphorus Magnesium AST ALT Total Creatine Kinase CK-MB (CK-2) Troponin T NT-Pro-B Natriuret Pep Total Protein Albumin Triglycerides HDL Cholesterol Urine WBC (Auto) Urine Creatinine Urine Total Protein Vancomycin Trough 05/07/19 05/07/19 05/07/19 06:33 07:03 09:35 WBC RBC Hgb Hct MCV MCH MCHC RDW Lymph % (Auto) [place] % (Auto) Eos % (Auto) Lymph # [place] # Eos # Seg Neutrophils % Seg Neuts % (Manual) Lymphocytes % (Manual) Monocytes % (Manual) Eosinophils % (Manual) Nucleated RBC % Seg Neutrophils # Seg Neutrophils # Man Lymphocytes # (Manual) Monocytes # (Manual) Eosinophils # (Manual) PT INR APTT POC ABG pH 7.263 L 7.288 L ABG pH POC ABG pCO2 POC ABG pO2 51 L 56 L ABG pO2 ABG HCO3 ABG O2 Saturation ABG Base Excess ABG Hemoglobin Oxyhemoglobin Sodium Potassium Chloride Carbon Dioxide BUN 76 H Creatinine 3.2 H Glucose 147 H POC Glucose Uric Acid Calcium 7.9 L Phosphorus Magnesium AST ALT Total Creatine Kinase CK-MB (CK-2) Troponin T NT-Pro-B Natriuret Pep Total Protein Albumin Triglycerides HDL Cholesterol Urine WBC (Auto) Urine Creatinine Urine Total Protein Vancomycin Trough 05/07/19 05/07/19 05/07/19 09:35 12:17 13:45 WBC 13.4 H RBC Hgb 11.6 L Hct MCV MCH 27 L MCHC 31 L RDW 17.5 H Lymph % (Auto) [place] % (Auto) Eos % (Auto) Lymph # [place] # Eos # Seg Neutrophils % Seg Neuts % (Manual) Lymphocytes % (Manual) Monocytes % (Manual) Eosinophils % (Manual) Nucleated RBC % Seg Neutrophils # Seg Neutrophils # Man Lymphocytes # (Manual) Monocytes # (Manual) Eosinophils # (Manual) PT INR APTT POC ABG pH ABG pH POC ABG pCO2 POC ABG pO2 ABG pO2 ABG HCO3 ABG O2 Saturation ABG Base Excess ABG Hemoglobin Oxyhemoglobin Sodium Potassium Chloride Carbon Dioxide BUN Creatinine Glucose POC Glucose 130 H Uric Acid 18.0 H Calcium Phosphorus Magnesium AST ALT Total Creatine Kinase CK-MB (CK-2) Troponin T NT-Pro-B Natriuret Pep Total Protein Albumin Triglycerides HDL Cholesterol Urine WBC (Auto) Urine Creatinine Urine Total Protein Vancomycin Trough 05/07/19 05/07/19 05/08/19 17:39 22:40 05:06 WBC RBC Hgb Hct MCV MCH MCHC RDW Lymph % (Auto) [place] % (Auto) Eos % (Auto) Lymph # [place] # Eos # Seg Neutrophils % Seg Neuts % (Manual) Lymphocytes % (Manual) Monocytes % (Manual) Eosinophils % (Manual) Nucleated RBC % Seg Neutrophils # Seg Neutrophils # Man Lymphocytes # (Manual) Monocytes # (Manual) Eosinophils # (Manual) PT INR APTT POC ABG pH ABG pH POC ABG pCO2 POC ABG pO2 ABG pO2 ABG HCO3 ABG O2 Saturation ABG Base Excess ABG Hemoglobin Oxyhemoglobin Sodium Potassium Chloride Carbon Dioxide BUN Creatinine Glucose POC Glucose 116 H 148 H Uric Acid Calcium Phosphorus Magnesium AST ALT Total Creatine Kinase CK-MB (CK-2) Troponin T NT-Pro-B Natriuret Pep Total Protein Albumin Triglycerides HDL Cholesterol Urine WBC (Auto) Urine Creatinine 292.8 H Urine Total Protein 269 H Vancomycin Trough 05/08/19 05/08/19 05/08/19 05:32 11:28 13:48 WBC RBC Hgb Hct MCV MCH MCHC RDW Lymph % (Auto) [place] % (Auto) Eos % (Auto) Lymph # [place] # Eos # Seg Neutrophils % Seg Neuts % (Manual) Lymphocytes % (Manual) Monocytes % (Manual) Eosinophils % (Manual) Nucleated RBC % Seg Neutrophils # Seg Neutrophils # Man Lymphocytes # (Manual) Monocytes # (Manual) Eosinophils # (Manual) PT INR APTT POC ABG pH ABG pH POC ABG pCO2 45.4 H POC ABG pO2 64 L ABG pO2 ABG HCO3 ABG O2 Saturation ABG Base Excess ABG Hemoglobin Oxyhemoglobin Sodium Potassium Chloride Carbon Dioxide BUN 73 H Creatinine 2.7 H Glucose 127 H POC Glucose 107 H Uric Acid Calcium 7.6 L Phosphorus Magnesium AST ALT Total Creatine Kinase CK-MB (CK-2) Troponin T NT-Pro-B Natriuret Pep Total Protein Albumin Triglycerides HDL Cholesterol Urine WBC (Auto) Urine Creatinine Urine Total Protein Vancomycin Trough 05/08/19 05/09/19 05/09/19 17:48 04:50 04:53 WBC RBC 3.07 L Hgb 8.5 L D Hct 29.3 L D MCV 96 H MCH MCHC 29 L RDW 18.1 H Lymph % (Auto) [place] % (Auto) Eos % (Auto) Lymph # [place] # Eos # Seg Neutrophils % Seg Neuts % (Manual) Lymphocytes % (Manual) Monocytes % (Manual) Eosinophils % (Manual) Nucleated RBC % Seg Neutrophils # Seg Neutrophils # Man Lymphocytes # (Manual) Monocytes # (Manual) Eosinophils # (Manual) PT INR APTT POC ABG pH 7.316 L ABG pH POC ABG pCO2 66.0 H POC ABG pO2 69 L ABG pO2 ABG HCO3 ABG O2 Saturation ABG Base Excess ABG Hemoglobin Oxyhemoglobin Sodium Potassium Chloride Carbon Dioxide BUN Creatinine Glucose POC Glucose 155 H Uric Acid Calcium Phosphorus Magnesium AST ALT Total Creatine Kinase CK-MB (CK-2) Troponin T NT-Pro-B Natriuret Pep Total Protein Albumin Triglycerides HDL Cholesterol Urine WBC (Auto) Urine Creatinine Urine Total Protein Vancomycin Trough 05/09/19 05/09/19 05/09/19 05:46 07:24 12:10 WBC RBC Hgb Hct MCV MCH MCHC RDW Lymph % (Auto) [place] % (Auto) Eos % (Auto) Lymph # [place] # Eos # Seg Neutrophils % Seg Neuts % (Manual) Lymphocytes % (Manual) Monocytes % (Manual) Eosinophils % (Manual) Nucleated RBC % Seg Neutrophils # Seg Neutrophils # Man Lymphocytes # (Manual) Monocytes # (Manual) Eosinophils # (Manual) PT INR APTT POC ABG pH ABG pH POC ABG pCO2 POC ABG pO2 ABG pO2 ABG HCO3 ABG O2 Saturation ABG Base Excess ABG Hemoglobin Oxyhemoglobin Sodium Potassium Chloride Carbon Dioxide BUN 73 H Creatinine 2.4 H Glucose 153 H POC Glucose 123 H 148 H Uric Acid Calcium 8.2 L Phosphorus Magnesium AST 45 H ALT Total Creatine Kinase CK-MB (CK-2) Troponin T NT-Pro-B Natriuret Pep Total Protein 6.0 L Albumin 1.9 L Triglycerides HDL Cholesterol Urine WBC (Auto) Urine Creatinine Urine Total Protein Vancomycin Trough 05/09/19 05/09/19 05/10/19 18:23 23:26 04:52 WBC RBC Hgb Hct MCV MCH MCHC RDW Lymph % (Auto) [place] % (Auto) Eos % (Auto) Lymph # [place] # Eos # Seg Neutrophils % Seg Neuts % (Manual) Lymphocytes % (Manual) Monocytes % (Manual) Eosinophils % (Manual) Nucleated RBC % Seg Neutrophils # Seg Neutrophils # Man Lymphocytes # (Manual) Monocytes # (Manual) Eosinophils # (Manual) PT INR APTT POC ABG pH 7.305 L ABG pH POC ABG pCO2 62.6 H POC ABG pO2 ABG pO2 ABG HCO3 ABG O2 Saturation ABG Base Excess ABG Hemoglobin Oxyhemoglobin Sodium Potassium Chloride Carbon Dioxide BUN Creatinine Glucose POC Glucose 147 H 121 H Uric Acid Calcium Phosphorus Magnesium AST ALT Total Creatine Kinase CK-MB (CK-2) Troponin T NT-Pro-B Natriuret Pep Total Protein Albumin Triglycerides HDL Cholesterol Urine WBC (Auto) Urine Creatinine Urine Total Protein Vancomycin Trough 05/10/19 05/10/19 05/10/19 05:00 05:00 05:50 WBC RBC Hgb 10.3 L Hct 33.7 L MCV MCH 27 L MCHC 31 L RDW 17.0 H Lymph % (Auto) [place] % (Auto) Eos % (Auto) Lymph # [place] # Eos # Seg Neutrophils % Seg Neuts % (Manual) Lymphocytes % (Manual) Monocytes % (Manual) Eosinophils % (Manual) Nucleated RBC % Seg Neutrophils # Seg Neutrophils # Man Lymphocytes # (Manual) Monocytes # (Manual) Eosinophils # (Manual) PT INR APTT POC ABG pH ABG pH POC ABG pCO2 POC ABG pO2 ABG pO2 ABG HCO3 ABG O2 Saturation ABG Base Excess ABG Hemoglobin Oxyhemoglobin Sodium 147 H Potassium Chloride Carbon Dioxide BUN 70 H Creatinine 2.6 H Glucose 155 H POC Glucose 158 H Uric Acid Calcium 8.2 L Phosphorus Magnesium AST ALT Total Creatine Kinase CK-MB (CK-2) Troponin T NT-Pro-B Natriuret Pep Total Protein 6.1 L Albumin 2.5 L Triglycerides HDL Cholesterol Urine WBC (Auto) Urine Creatinine Urine Total Protein Vancomycin Trough 05/10/19 05/11/19 05/11/19 13:14 07:26 11:40 WBC RBC Hgb Hct MCV MCH MCHC RDW Lymph % (Auto) [place] % (Auto) Eos % (Auto) Lymph # [place] # Eos # Seg Neutrophils % Seg Neuts % (Manual) Lymphocytes % (Manual) Monocytes % (Manual) Eosinophils % (Manual) Nucleated RBC % Seg Neutrophils # Seg Neutrophils # Man Lymphocytes # (Manual) Monocytes # (Manual) Eosinophils # (Manual) PT INR APTT POC ABG pH ABG pH POC ABG pCO2 48.0 H POC ABG pO2 58 L ABG pO2 ABG HCO3 ABG O2 Saturation ABG Base Excess ABG Hemoglobin Oxyhemoglobin Sodium 147 H Potassium Chloride 107.2 H Carbon Dioxide BUN 67 H Creatinine 2.6 H Glucose 121 H POC Glucose 159 H Uric Acid Calcium Phosphorus Magnesium AST ALT Total Creatine Kinase CK-MB (CK-2) Troponin T NT-Pro-B Natriuret Pep Total Protein Albumin Triglycerides HDL Cholesterol Urine WBC (Auto) Urine Creatinine Urine Total Protein Vancomycin Trough 05/11/19 05/11/19 05/12/19 18:13 23:46 04:40 WBC RBC Hgb Hct MCV MCH MCHC RDW Lymph % (Auto) [place] % (Auto) Eos % (Auto) Lymph # [place] # Eos # Seg Neutrophils % Seg Neuts % (Manual) Lymphocytes % (Manual) Monocytes % (Manual) Eosinophils % (Manual) Nucleated RBC % Seg Neutrophils # Seg Neutrophils # Man Lymphocytes # (Manual) Monocytes # (Manual) Eosinophils # (Manual) PT INR APTT POC ABG pH ABG pH 7.264 L POC ABG pCO2 POC ABG pO2 ABG pO2 66.8 L ABG HCO3 31.0 H ABG O2 Saturation 92.0 L ABG Base Excess ABG Hemoglobin 10.3 L Oxyhemoglobin 90.1 L Sodium Potassium Chloride Carbon Dioxide BUN Creatinine Glucose POC Glucose 120 H 121 H Uric Acid Calcium Phosphorus Magnesium AST ALT Total Creatine Kinase CK-MB (CK-2) Troponin T NT-Pro-B Natriuret Pep Total Protein Albumin Triglycerides HDL Cholesterol Urine WBC (Auto) Urine Creatinine Urine Total Protein Vancomycin Trough 05/12/19 05/12/19 05/12/19 04:45 04:45 11:14 WBC RBC Hgb 10.2 L Hct 32.4 L MCV MCH MCHC 31 L RDW 17.2 H Lymph % (Auto) [place] % (Auto) Eos % (Auto) Lymph # [place] # Eos # Seg Neutrophils % Seg Neuts % (Manual) Lymphocytes % (Manual) Monocytes % (Manual) Eosinophils % (Manual) Nucleated RBC % Seg Neutrophils # Seg Neutrophils # Man Lymphocytes # (Manual) Monocytes # (Manual) Eosinophils # (Manual) PT INR APTT POC ABG pH 7.284 L ABG pH POC ABG pCO2 67.8 H POC ABG pO2 ABG pO2 ABG HCO3 ABG O2 Saturation ABG Base Excess ABG Hemoglobin Oxyhemoglobin Sodium Potassium Chloride Carbon Dioxide BUN 63 H Creatinine 2.4 H Glucose 110 H POC Glucose Uric Acid Calcium Phosphorus Magnesium AST ALT Total Creatine Kinase CK-MB (CK-2) Troponin T NT-Pro-B Natriuret Pep Total Protein Albumin Triglycerides HDL Cholesterol Urine WBC (Auto) Urine Creatinine Urine Total Protein Vancomycin Trough 05/12/19 05/12/19 05/13/19 11:44 23:11 04:30 WBC RBC Hgb Hct MCV MCH MCHC RDW Lymph % (Auto) [place] % (Auto) Eos % (Auto) Lymph # [place] # Eos # Seg Neutrophils % Seg Neuts % (Manual) Lymphocytes % (Manual) Monocytes % (Manual) Eosinophils % (Manual) Nucleated RBC % Seg Neutrophils # Seg Neutrophils # Man Lymphocytes # (Manual) Monocytes # (Manual) Eosinophils # (Manual) PT INR APTT POC ABG pH ABG pH 7.288 L POC ABG pCO2 POC ABG pO2 ABG pO2 109.7 H ABG HCO3 30.9 H ABG O2 Saturation ABG Base Excess 3.2 H ABG Hemoglobin 9.6 L Oxyhemoglobin Sodium Potassium Chloride Carbon Dioxide BUN Creatinine Glucose POC Glucose 126 H 147 H Uric Acid Calcium Phosphorus Magnesium AST ALT Total Creatine Kinase CK-MB (CK-2) Troponin T NT-Pro-B Natriuret Pep Total Protein Albumin Triglycerides HDL Cholesterol Urine WBC (Auto) Urine Creatinine Urine Total Protein Vancomycin Trough 05/13/19 05/13/19 05/14/19 06:27 11:58 04:00 WBC RBC 3.16 L Hgb 9.3 L Hct 27.9 L MCV MCH MCHC RDW 17.1 H Lymph % (Auto) [place] % (Auto) Eos % (Auto) Lymph # [place] # Eos # Seg Neutrophils % Seg Neuts % (Manual) Lymphocytes % (Manual) Monocytes % (Manual) Eosinophils % (Manual) Nucleated RBC % Seg Neutrophils # Seg Neutrophils # Man Lymphocytes # (Manual) Monocytes # (Manual) Eosinophils # (Manual) PT INR APTT POC ABG pH ABG pH POC ABG pCO2 POC ABG pO2 ABG pO2 ABG HCO3 ABG O2 Saturation ABG Base Excess ABG Hemoglobin Oxyhemoglobin Sodium Potassium Chloride Carbon Dioxide BUN Creatinine Glucose POC Glucose 113 H 130 H Uric Acid Calcium Phosphorus Magnesium AST ALT Total Creatine Kinase CK-MB (CK-2) Troponin T NT-Pro-B Natriuret Pep Total Protein Albumin Triglycerides HDL Cholesterol Urine WBC (Auto) Urine Creatinine Urine Total Protein Vancomycin Trough 05/14/19 05/14/1905/14/19 04:00 04:34 05:32 WBC RBC Hgb Hct MCV MCH MCHC RDW Lymph % (Auto) [place] % (Auto) Eos % (Auto) Lymph # [place] # Eos # Seg Neutrophils % Seg Neuts % (Manual) Lymphocytes % (Manual) Monocytes % (Manual) Eosinophils % (Manual) Nucleated RBC % Seg Neutrophils # Seg Neutrophils # Man Lymphocytes # (Manual) Monocytes # (Manual) Eosinophils # (Manual) PT INR APTT POC ABG pH 7.328 L ABG pH POC ABG pCO2 61.7 H POC ABG pO2 ABG pO2 ABG HCO3 ABG O2 Saturation ABG Base Excess ABG Hemoglobin Oxyhemoglobin Sodium 135 L D Potassium Chloride Carbon Dioxide BUN 57 H Creatinine 2.2 H Glucose 115 H POC Glucose 115 H Uric Acid Calcium 8.1 L Phosphorus Magnesium AST ALT Total Creatine Kinase CK-MB (CK-2) Troponin T NT-Pro-B Natriuret Pep Total Protein Albumin Triglycerides HDL Cholesterol Urine WBC (Auto) Urine Creatinine Urine Total Protein Vancomycin Trough 05/14/19 05/15/19 05/15/19 12:11 05:10 05:24 WBC RBC Hgb Hct MCV MCH MCHC RDW Lymph % (Auto) [place] % (Auto) Eos % (Auto) Lymph # [place] # Eos # Seg Neutrophils % Seg Neuts % (Manual) Lymphocytes % (Manual) Monocytes % (Manual) Eosinophils % (Manual) Nucleated RBC % Seg Neutrophils # Seg Neutrophils # Man Lymphocytes # (Manual) Monocytes # (Manual) Eosinophils # (Manual) PT INR APTT POC ABG pH ABG pH 7.342 L POC ABG pCO2 POC ABG pO2 ABG pO2 79.1 L ABG HCO3 28.2 H ABG O2 Saturation ABG Base Excess ABG Hemoglobin 7.0 L Oxyhemoglobin 94.4 L Sodium Potassium Chloride Carbon Dioxide BUN Creatinine Glucose POC Glucose 110 H 116 H Uric Acid Calcium Phosphorus Magnesium AST ALT Total Creatine Kinase CK-MB (CK-2) Troponin T NT-Pro-B Natriuret Pep Total Protein Albumin Triglycerides HDL Cholesterol Urine WBC (Auto) Urine Creatinine Urine Total Protein Vancomycin Trough 05/15/19 05/15/19 05/16/19 09:00 18:12 04:50 WBC RBC Hgb Hct MCV MCH MCHC RDW Lymph % (Auto) [place] % (Auto) Eos % (Auto) Lymph # [place] # Eos # Seg Neutrophils % Seg Neuts % (Manual) Lymphocytes % (Manual) Monocytes % (Manual) Eosinophils % (Manual) Nucleated RBC % Seg Neutrophils # Seg Neutrophils # Man Lymphocytes # (Manual) Monocytes # (Manual) Eosinophils # (Manual) PT INR APTT POC ABG pH ABG pH 7.250 L POC ABG pCO2 POC ABG pO2 ABG pO2 76.4 L ABG HCO3 ABG O2 Saturation 94.6 L ABG Base Excess -3.1 L ABG Hemoglobin 9.7 L Oxyhemoglobin 92.4 L Sodium Potassium Chloride Carbon Dioxide BUN Creatinine Glucose POC Glucose 110 H Uric Acid Calcium Phosphorus Magnesium AST ALT Total Creatine Kinase CK-MB (CK-2) Troponin T NT-Pro-B Natriuret Pep Total Protein Albumin Triglycerides HDL Cholesterol Urine WBC (Auto) Urine Creatinine Urine Total Protein Vancomycin Trough 20.5 H 05/16/19 05/16/19 05/17/19 05:50 05:50 04:20 WBC RBC 3.36 L 3.44 L Hgb 9.4 L 9.3 L Hct 29.1 L 29.7 L MCV MCH 27 L MCHC 31 L RDW 17.6 H 17.6 H Lymph % (Auto) [place] % (Auto) Eos % (Auto) Lymph # [place] # Eos # Seg Neutrophils % Seg Neuts % (Manual) 77.0 H Lymphocytes % (Manual) 5.0 L Monocytes % (Manual) Eosinophils % (Manual) 10.0 H Nucleated RBC % Seg Neutrophils # Seg Neutrophils # Man Lymphocytes # (Manual) 0.5 L Monocytes # (Manual) Eosinophils # (Manual) 0.9 H PT INR APTT POC ABG pH ABG pH POC ABG pCO2 POC ABG pO2 ABG pO2 ABG HCO3 ABG O2 Saturation ABG Base Excess ABG Hemoglobin Oxyhemoglobin Sodium Potassium Chloride Carbon Dioxide BUN 83 H Creatinine 4.4 H D Glucose 118 H POC Glucose Uric Acid Calcium Phosphorus Magnesium AST ALT Total Creatine Kinase CK-MB (CK-2) Troponin T NT-Pro-B Natriuret Pep Total Protein Albumin Triglycerides HDL Cholesterol Urine WBC (Auto) Urine Creatinine Urine Total Protein Vancomycin Trough 05/17/19 05/17/19 05/18/19 04:30 Unknown 01:50 WBC RBC 3.49 L Hgb 9.4 L Hct 30.0 L MCV MCH 27 L MCHC 31 L RDW 17.8 H Lymph % (Auto) 7.9 L [place] % (Auto) 15.4 H Eos % (Auto) 6.3 H Lymph # 0.7 L [place] # 1.4 H Eos # 0.6 H Seg Neutrophils % 70.2 H Seg Neuts % (Manual) Lymphocytes % (Manual) Monocytes % (Manual) Eosinophils % (Manual) Nucleated RBC % Seg Neutrophils # Seg Neutrophils # Man Lymphocytes # (Manual) Monocytes # (Manual) Eosinophils # (Manual) PT INR APTT POC ABG pH ABG pH 7.272 L POC ABG pCO2 POC ABG pO2 ABG pO2 75.7 L ABG HCO3 ABG O2 Saturation 93.8 L ABG Base Excess -3.0 L ABG Hemoglobin 7.8 L Oxyhemoglobin 91.6 L Sodium Potassium 5.2 H Chloride Carbon Dioxide BUN 96 H Creatinine 5.7 H Glucose 112 H POC Glucose Uric Acid Calcium Phosphorus Magnesium AST ALT Total Creatine Kinase CK-MB (CK-2) Troponin T NT-Pro-B Natriuret Pep Total Protein Albumin Triglycerides 173 H HDL Cholesterol Urine WBC (Auto) Urine Creatinine Urine Total Protein Vancomycin Trough 05/18/19 05/18/19 05/18/19 01:50 04:41 05:24 WBC RBC Hgb Hct MCV MCH MCHC RDW Lymph % (Auto) [place] % (Auto) Eos % (Auto) Lymph # [place] # Eos # Seg Neutrophils % Seg Neuts % (Manual) Lymphocytes % (Manual) Monocytes % (Manual) Eosinophils % (Manual) Nucleated RBC % Seg Neutrophils # Seg Neutrophils # Man Lymphocytes # (Manual) Monocytes # (Manual) Eosinophils # (Manual) PT INR APTT POC ABG pH 7.260 L ABG pH POC ABG pCO2 54.9 H POC ABG pO2 ABG pO2 ABG HCO3 ABG O2 Saturation ABG Base Excess ABG Hemoglobin Oxyhemoglobin Sodium Potassium 5.6 H Chloride Carbon Dioxide BUN 104 H Creatinine 6.6 H Glucose 107 H POC Glucose 106 H Uric Acid Calcium Phosphorus Magnesium AST ALT Total Creatine Kinase CK-MB (CK-2) Troponin T NT-Pro-B Natriuret Pep Total Protein Albumin Triglycerides HDL Cholesterol Urine WBC (Auto) Urine Creatinine Urine Total Protein Vancomycin Trough 05/18/19 05/18/19 05/19/19 11:34 23:26 04:06 WBC RBC 3.22 L Hgb 8.8 L Hct 27.3 L MCV MCH 27 L MCHC RDW 17.5 H Lymph % (Auto) [place] % (Auto) Eos % (Auto) Lymph # [place] # Eos # Seg Neutrophils % Seg Neuts % (Manual) 74.0 H Lymphocytes % (Manual) 4.0 L Monocytes % (Manual) 11.0 H Eosinophils % (Manual) 7.0 H Nucleated RBC % 1.0 H Seg Neutrophils # Seg Neutrophils # Man Lymphocytes # (Manual) 0.3 L Monocytes # (Manual) 0.9 H Eosinophils # (Manual) 0.6 H PT INR APTT POC ABG pH ABG pH POC ABG pCO2 POC ABG pO2 ABG pO2 ABG HCO3 ABG O2 Saturation ABG Base Excess ABG Hemoglobin Oxyhemoglobin Sodium Potassium Chloride Carbon Dioxide BUN Creatinine Glucose POC Glucose 152 H 112 H Uric Acid Calcium Phosphorus Magnesium AST ALT Total Creatine Kinase CK-MB (CK-2) Troponin T NT-Pro-B Natriuret Pep Total Protein Albumin Triglycerides HDL Cholesterol Urine WBC (Auto) Urine Creatinine Urine Total Protein Vancomycin Trough 05/19/19 05/19/19 05/20/19 04:06 06:00 04:00 WBC RBC 3.40 L Hgb 9.2 L Hct 28.6 L MCV MCH 27 L MCHC RDW 17.6 H Lymph % (Auto) [place] % (Auto) Eos % (Auto) Lymph # [place] # Eos # Seg Neutrophils % Seg Neuts % (Manual) Lymphocytes % (Manual) 11.0 L Monocytes % (Manual) Eosinophils % (Manual) 14.0 H Nucleated RBC % Seg Neutrophils # Seg Neutrophils # Man Lymphocytes # (Manual) 1.1 L Monocytes # (Manual) Eosinophils # (Manual) 1.4 H PT INR APTT POC ABG pH ABG pH 7.315 L POC ABG pCO2 POC ABG pO2 ABG pO2 ABG HCO3 ABG O2 Saturation ABG Base Excess ABG Hemoglobin 6.7 L Oxyhemoglobin 94.1 L Sodium Potassium 5.2 H Chloride Carbon Dioxide 21 L BUN 110 H Creatinine 7.2 H Glucose POC Glucose Uric Acid Calcium 8.3 L Phosphorus Magnesium AST ALT Total Creatine Kinase CK-MB (CK-2) Troponin T NT-Pro-B Natriuret Pep Total Protein Albumin Triglycerides HDL Cholesterol Urine WBC (Auto) Urine Creatinine Urine Total Protein Vancomycin Trough 05/20/19 05/20/19 05/20/19 04:00 05:48 12:00 WBC RBC Hgb Hct MCV MCH MCHC RDW Lymph % (Auto) [place] % (Auto) Eos % (Auto) Lymph # [place] # Eos # Seg Neutrophils % Seg Neuts % (Manual) Lymphocytes % (Manual) Monocytes % (Manual) Eosinophils % (Manual) Nucleated RBC % Seg Neutrophils # Seg Neutrophils # Man Lymphocytes # (Manual) Monocytes # (Manual) Eosinophils # (Manual) PT INR APTT POC ABG pH ABG pH 7.281 L POC ABG pCO2 POC ABG pO2 ABG pO2 78.7 L ABG HCO3 ABG O2 Saturation 94.5 L ABG Base Excess -3.0 L ABG Hemoglobin 9.9 L Oxyhemoglobin 92.5 L Sodium 136 L Potassium 5.7 H Chloride 96.3 L Carbon Dioxide BUN 125 H Creatinine 8.3 H Glucose 106 H POC Glucose Uric Acid Calcium Phosphorus Magnesium AST ALT Total Creatine Kinase CK-MB (CK-2) Troponin T NT-Pro-B Natriuret Pep Total Protein Albumin Triglycerides HDL Cholesterol Urine WBC (Auto) 26.0 H Urine Creatinine Urine Total Protein Vancomycin Trough 05/21/19 05/21/19 05/21/19 04:33 05:20 Unknown WBC RBC 3.38 L Hgb 9.1 L Hct 28.5 L MCV MCH 27 L MCHC RDW 17.4 H Lymph % (Auto) [place] % (Auto) Eos % (Auto) Lymph # [place] # Eos # Seg Neutrophils % Seg Neuts % (Manual) 71.0 H Lymphocytes % (Manual) 1.0 L Monocytes % (Manual) 11.0 H Eosinophils % (Manual) 6.0 H Nucleated RBC % Seg Neutrophils # Seg Neutrophils # Man Lymphocytes # (Manual) 0.1 L Monocytes # (Manual) 1.0 H Eosinophils # (Manual) 0.6 H PT INR APTT POC ABG pH 7.315 L ABG pH POC ABG pCO2 57.8 H POC ABG pO2 68 L ABG pO2 ABG HCO3 ABG O2 Saturation ABG Base Excess ABG Hemoglobin Oxyhemoglobin Sodium Potassium Chloride 96.3 L Carbon Dioxide BUN 102 H Creatinine 7.0 H Glucose 103 H POC Glucose Uric Acid Calcium Phosphorus Magnesium AST ALT Total Creatine Kinase CK-MB (CK-2) Troponin T NT-Pro-B Natriuret Pep Total Protein Albumin Triglycerides HDL Cholesterol Urine WBC (Auto) Urine Creatinine Urine Total Protein Vancomycin Trough 12/05/22/19 05/22/19 03:54 06:25 06:25 WBC RBC 3.22 L Hgb 8.6 L Hct 27.0 L MCV MCH 27 L MCHC RDW 17.5 H Lymph % (Auto) [place] % (Auto) 16.2 H Eos % (Auto) 10.8 H Lymph # [place] # 1.3 H Eos # 0.9 H Seg Neutrophils % Seg Neuts % (Manual) Lymphocytes % (Manual) 10.0 L Monocytes % (Manual) 13.0 H Eosinophils % (Manual) 8.0 H Nucleated RBC % Seg Neutrophils # Seg Neutrophils # Man Lymphocytes # (Manual) 0.9 L Monocytes # (Manual) 1.1 H Eosinophils # (Manual) 0.7 H PT INR APTT POC ABG pH 7.313 L ABG pH POC ABG pCO2 55.0 H POC ABG pO2 ABG pO2 ABG HCO3 ABG O2 Saturation ABG Base Excess ABG Hemoglobin Oxyhemoglobin Sodium 135 L Potassium Chloride 94.3 L Carbon Dioxide BUN 117 H Creatinine 7.8 H Glucose POC Glucose Uric Acid Calcium 8.2 L Phosphorus Magnesium AST ALT Total Creatine Kinase CK-MB (CK-2) Troponin T NT-Pro-B Natriuret Pep Total Protein Albumin Triglycerides HDL Cholesterol Urine WBC (Auto) Urine Creatinine Urine Total Protein Vancomycin Trough 05/23/19 05/24/19 05/24/19 05:21 05:00 05:00 WBC RBC 3.18 L Hgb 8.5 L Hct 26.7 L MCV MCH 27 L MCHC RDW 17.9 H Lymph % (Auto) [place] % (Auto) Eos % (Auto) Lymph # [place] # Eos # Seg Neutrophils % Seg Neuts % (Manual) Lymphocytes % (Manual) Monocytes % (Manual) Eosinophils % (Manual) Nucleated RBC % Seg Neutrophils # Seg Neutrophils # Man Lymphocytes # (Manual) Monocytes # (Manual) Eosinophils # (Manual) PT INR APTT POC ABG pH ABG pH POC ABG pCO2 49.7 H POC ABG pO2 73 L ABG pO2 ABG HCO3 ABG O2 Saturation ABG Base Excess ABG Hemoglobin Oxyhemoglobin Sodium Potassium Chloride 95.7 L Carbon Dioxide BUN 97 H Creatinine 6.5 H Glucose POC Glucose Uric Acid Calcium 8.0 L Phosphorus Magnesium AST ALT Total Creatine Kinase CK-MB (CK-2) Troponin T NT-Pro-B Natriuret Pep Total Protein Albumin Triglycerides HDL Cholesterol Urine WBC (Auto) Urine Creatinine Urine Total Protein Vancomycin Trough 05/24/19 05/25/19 05/25/19 06:17 04:22 15:45 WBC RBC 2.98 L Hgb 8.1 L Hct 24.9 L MCV MCH 27 L MCHC RDW 17.8 H Lymph % (Auto) [place] % (Auto) Eos % (Auto) Lymph # [place] # Eos # Seg Neutrophils % Seg Neuts % (Manual) Lymphocytes % (Manual) Monocytes % (Manual) Eosinophils % (Manual) Nucleated RBC % Seg Neutrophils # Seg Neutrophils # Man Lymphocytes # (Manual) Monocytes # (Manual) Eosinophils # (Manual) PT INR APTT POC ABG pH 7.330 L 7.313 L ABG pH POC ABG pCO2 52.5 H 51.1 H POC ABG pO2 77 L ABG pO2 ABG HCO3 ABG O2 Saturation ABG Base Excess ABG Hemoglobin Oxyhemoglobin Sodium Potassium Chloride Carbon Dioxide BUN Creatinine Glucose POC Glucose Uric Acid Calcium Phosphorus Magnesium AST ALT Total Creatine Kinase CK-MB (CK-2) Troponin T NT-Pro-B Natriuret Pep Total Protein Albumin Triglycerides HDL Cholesterol Urine WBC (Auto) Urine Creatinine Urine Total Protein Vancomycin Trough 05/25/19 05/26/19 05/26/19 15:45 04:13 05:00 WBC RBC 3.10 L Hgb 8.4 L Hct 26.0 L MCV MCH 27 L MCHC RDW 17.4 H Lymph % (Auto) [place] % (Auto) Eos % (Auto) Lymph # [place] # Eos # Seg Neutrophils % Seg Neuts % (Manual) Lymphocytes % (Manual) Monocytes % (Manual) Eosinophils % (Manual) Nucleated RBC % Seg Neutrophils # Seg Neutrophils # Man Lymphocytes # (Manual) Monocytes # (Manual) Eosinophils # (Manual) PT INR APTT POC ABG pH 7.295 L ABG pH POC ABG pCO2 56.5 H POC ABG pO2 63 L ABG pO2 ABG HCO3 ABG O2 Saturation ABG Base Excess ABG Hemoglobin Oxyhemoglobin Sodium 136 L Potassium Chloride 96.8 L Carbon Dioxide BUN 83 H Creatinine 5.9 H Glucose POC Glucose Uric Acid Calcium 7.6 L Phosphorus Magnesium AST ALT Total Creatine Kinase CK-MB (CK-2) Troponin T NT-Pro-B Natriuret Pep Total Protein Albumin Triglycerides HDL Cholesterol Urine WBC (Auto) Urine Creatinine Urine Total Protein Vancomycin Trough 05/26/19 05/27/19 05/28/19 05:00 04:48 04:47 WBC RBC Hgb Hct MCV MCH MCHC RDW Lymph % (Auto) [place] % (Auto) Eos % (Auto) Lymph # [place] # Eos # Seg Neutrophils % Seg Neuts % (Manual) Lymphocytes % (Manual) Monocytes % (Manual) Eosinophils % (Manual) Nucleated RBC % Seg Neutrophils # Seg Neutrophils # Man Lymphocytes # (Manual) Monocytes # (Manual) Eosinophils # (Manual) PT INR APTT POC ABG pH 7.323 L ABG pH 7.284 L POC ABG pCO2 56.2 H POC ABG pO2 ABG pO2 71.6 L ABG HCO3 ABG O2 Saturation 92.0 L ABG Base Excess ABG Hemoglobin 7.7 L Oxyhemoglobin 89.9 L Sodium 136 L Potassium Chloride 95.3 L Carbon Dioxide BUN 96 H Creatinine 6.5 H Glucose 108 H POC Glucose Uric Acid Calcium 7.6 L Phosphorus Magnesium AST ALT Total Creatine Kinase CK-MB (CK-2) Troponin T NT-Pro-B Natriuret Pep Total Protein Albumin Triglycerides HDL Cholesterol Urine WBC (Auto) Urine Creatinine Urine Total Protein Vancomycin Trough 05/28/19 05/29/19 05/29/19 12:30 12:47 23:44 WBC RBC Hgb Hct MCV MCH MCHC RDW Lymph % (Auto) [place] % (Auto) Eos % (Auto) Lymph # [place] # Eos # Seg Neutrophils % Seg Neuts % (Manual) Lymphocytes % (Manual) Monocytes % (Manual) Eosinophils % (Manual) Nucleated RBC % Seg Neutrophils # Seg Neutrophils # Man Lymphocytes # (Manual) Monocytes # (Manual) Eosinophils # (Manual) PT INR APTT POC ABG pH ABG pH POC ABG pCO2 POC ABG pO2 ABG pO2 ABG HCO3 ABG O2 Saturation ABG Base Excess ABG Hemoglobin Oxyhemoglobin Sodium 135 L Potassium Chloride 95.3 L Carbon Dioxide BUN 82 H Creatinine 6.0 H Glucose POC Glucose 136 H 159 H Uric Acid Calcium 7.5 L Phosphorus Magnesium AST ALT Total Creatine Kinase CK-MB (CK-2) Troponin T NT-Pro-B Natriuret Pep Total Protein Albumin Triglycerides HDL Cholesterol Urine WBC (Auto) Urine Creatinine Urine Total Protein Vancomycin Trough 05/30/19 05/30/19 05/30/19 04:30 05:38 12:00 WBC RBC 3.01 L Hgb 8.2 L Hct 25.3 L MCV MCH 27 L MCHC RDW 17.5 H Lymph % (Auto) [place] % (Auto) Eos % (Auto) Lymph # [place] # Eos # Seg Neutrophils % Seg Neuts % (Manual) 80.0 H Lymphocytes % (Manual) 10.0 L Monocytes % (Manual) Eosinophils % (Manual) Nucleated RBC % Seg Neutrophils # Seg Neutrophils # Man 8.0 H Lymphocytes # (Manual) 1.0 L Monocytes # (Manual) Eosinophils # (Manual) PT INR APTT POC ABG pH ABG pH POC ABG pCO2 POC ABG pO2 73 L ABG pO2 ABG HCO3 ABG O2 Saturation ABG Base Excess ABG Hemoglobin Oxyhemoglobin Sodium Potassium Chloride Carbon Dioxide BUN Creatinine Glucose POC Glucose 166 H Uric Acid Calcium Phosphorus Magnesium AST ALT Total Creatine Kinase CK-MB (CK-2) Troponin T NT-Pro-B Natriuret Pep Total Protein Albumin Triglycerides HDL Cholesterol Urine WBC (Auto) Urine Creatinine Urine Total Protein Vancomycin Trough 05/30/19 05/31/19 05/31/19 23:45 04:07 13:04 WBC 14.3 H RBC 2.88 L Hgb 7.7 L Hct 23.9 L MCV 83 L MCH 27 L MCHC RDW 17.8 H Lymph % (Auto) [place] % (Auto) Eos % (Auto) Lymph # [place] # Eos # Seg Neutrophils % Seg Neuts % (Manual) 83.0 H Lymphocytes % (Manual) 11.0 L Monocytes % (Manual) Eosinophils % (Manual) Nucleated RBC % Seg Neutrophils # Seg Neutrophils # Man 11.9 H Lymphocytes # (Manual) Monocytes # (Manual) 0.9 H Eosinophils # (Manual) PT INR APTT POC ABG pH ABG pH POC ABG pCO2 47.4 H POC ABG pO2 ABG pO2 ABG HCO3 ABG O2 Saturation ABG Base Excess ABG Hemoglobin Oxyhemoglobin Sodium Potassium Chloride Carbon Dioxide BUN Creatinine Glucose POC Glucose 209 H Uric Acid Calcium Phosphorus Magnesium AST ALT Total Creatine Kinase CK-MB (CK-2) Troponin T NT-Pro-B Natriuret Pep Total Protein Albumin Triglycerides HDL Cholesterol Urine WBC (Auto) Urine Creatinine Urine Total Protein Vancomycin Trough 05/31/19 05/31/19 06/01/19 13:04 16:42 00:15 WBC RBC Hgb Hct MCV MCH MCHC RDW Lymph % (Auto) [place] % (Auto) Eos % (Auto) Lymph # [place] # Eos # Seg Neutrophils % Seg Neuts % (Manual) Lymphocytes % (Manual) Monocytes % (Manual) Eosinophils % (Manual) Nucleated RBC % Seg Neutrophils # Seg Neutrophils # Man Lymphocytes # (Manual) Monocytes # (Manual) Eosinophils # (Manual) PT INR APTT POC ABG pH ABG pH POC ABG pCO2 POC ABG pO2 ABG pO2 ABG HCO3 ABG O2 Saturation ABG Base Excess ABG Hemoglobin Oxyhemoglobin Sodium 129 L Potassium Chloride 88.6 L Carbon Dioxide 19 L BUN 117 H Creatinine 6.7 H Glucose 205 H POC Glucose 228 H 223 H Uric Acid Calcium 7.4 L Phosphorus 7.40 H Magnesium AST 58 H ALT 149 H Total Creatine Kinase CK-MB (CK-2) Troponin T NT-Pro-B Natriuret Pep Total Protein 6.0 L Albumin 2.5 L Triglycerides HDL Cholesterol Urine WBC (Auto) Urine Creatinine Urine Total Protein Vancomycin Trough 06/01/19 06/01/19 06/01/19 04:33 05:27 12:31 WBC RBC Hgb Hct MCV MCH MCHC RDW Lymph % (Auto) [place] % (Auto) Eos % (Auto) Lymph # [place] # Eos # Seg Neutrophils % Seg Neuts % (Manual) Lymphocytes % (Manual) Monocytes % (Manual) Eosinophils % (Manual) Nucleated RBC % Seg Neutrophils # Seg Neutrophils # Man Lymphocytes # (Manual) Monocytes # (Manual) Eosinophils # (Manual) PT INR APTT POC ABG pH ABG pH POC ABG pCO2 POC ABG pO2 ABG pO2 56.9 L ABG HCO3 ABG O2 Saturation 85.9 L ABG Base Excess ABG Hemoglobin 8.1 L Oxyhemoglobin 83.6 L Sodium Potassium Chloride Carbon Dioxide BUN Creatinine Glucose POC Glucose 183 H 217 H Uric Acid Calcium Phosphorus Magnesium AST ALT Total Creatine Kinase CK-MB (CK-2) Troponin T NT-Pro-B Natriuret Pep Total Protein Albumin Triglycerides HDL Cholesterol Urine WBC (Auto) Urine Creatinine Urine Total Protein Vancomycin Trough 06/01/19 06/02/19 06/02/19 18:20 00:00 05:33 WBC RBC Hgb Hct MCV MCH MCHC RDW Lymph % (Auto) [place] % (Auto) Eos % (Auto) Lymph # [place] # Eos # Seg Neutrophils % Seg Neuts % (Manual) Lymphocytes % (Manual) Monocytes % (Manual) Eosinophils % (Manual) Nucleated RBC % Seg Neutrophils # Seg Neutrophils # Man Lymphocytes # (Manual) Monocytes # (Manual) Eosinophils # (Manual) PT INR APTT POC ABG pH ABG pH POC ABG pCO2 POC ABG pO2 ABG pO2 ABG HCO3 ABG O2 Saturation ABG Base Excess ABG Hemoglobin Oxyhemoglobin Sodium Potassium Chloride Carbon Dioxide BUN Creatinine Glucose POC Glucose 265 H 279 H 259 H Uric Acid Calcium Phosphorus Magnesium AST ALT Total Creatine Kinase CK-MB (CK-2) Troponin T NT-Pro-B Natriuret Pep Total Protein Albumin Triglycerides HDL Cholesterol Urine WBC (Auto) Urine Creatinine Urine Total Protein Vancomycin Trough 06/02/19 06/02/19 06/02/19 11:06 11:06 11:42 WBC 13.1 H RBC 2.92 L Hgb 7.9 L Hct 24.4 L MCV MCH 27 L MCHC RDW 17.4 H Lymph % (Auto) [place] % (Auto) Eos % (Auto) Lymph # [place] # Eos # Seg Neutrophils % Seg Neuts % (Manual) 78.0 H Lymphocytes % (Manual) 12.0 L Monocytes % (Manual) 10.0 H Eosinophils % (Manual) Nucleated RBC % Seg Neutrophils # Seg Neutrophils # Man 10.2 H Lymphocytes # (Manual) Monocytes # (Manual) 1.3 H Eosinophils # (Manual) PT INR APTT POC ABG pH ABG pH POC ABG pCO2 POC ABG pO2 ABG pO2 ABG HCO3 ABG O2 Saturation ABG Base Excess ABG Hemoglobin Oxyhemoglobin Sodium 135 L Potassium Chloride 94.7 L Carbon Dioxide 21 L BUN 107 H Creatinine 4.5 H Glucose 286 H POC Glucose 263 H Uric Acid Calcium 7.9 L Phosphorus 6.30 H Magnesium AST ALT 104 H Total Creatine Kinase CK-MB (CK-2) Troponin T NT-Pro-B Natriuret Pep Total Protein 6.0 L Albumin 2.7 L Triglycerides HDL Cholesterol Urine WBC (Auto) Urine Creatinine Urine Total Protein Vancomycin Trough 06/02/19 06/02/19 06/03/19 18:17 23:55 05:30 WBC RBC Hgb Hct MCV MCH MCHC RDW Lymph % (Auto) [place] % (Auto) Eos % (Auto) Lymph # [place] # Eos # Seg Neutrophils % Seg Neuts % (Manual) Lymphocytes % (Manual) Monocytes % (Manual) Eosinophils % (Manual) Nucleated RBC % Seg Neutrophils # Seg Neutrophils # Man Lymphocytes # (Manual) Monocytes # (Manual) Eosinophils # (Manual) PT INR APTT POC ABG pH ABG pH POC ABG pCO2 POC ABG pO2 ABG pO2 ABG HCO3 ABG O2 Saturation ABG Base Excess ABG Hemoglobin Oxyhemoglobin Sodium Potassium Chloride 95.1 L Carbon Dioxide 21 L BUN 119 H Creatinine 4.1 H Glucose 330 H POC Glucose 276 H 244 H Uric Acid Calcium 8.1 L Phosphorus Magnesium AST ALT 98 H Total Creatine Kinase CK-MB (CK-2) Troponin T NT-Pro-B Natriuret Pep Total Protein 5.8 L Albumin 2.8 L Triglycerides HDL Cholesterol Urine WBC (Auto) Urine Creatinine Urine Total Protein Vancomycin Trough 06/03/19 06/03/19 06/03/19 05:30 06:04 09:42 WBC 12.8 H RBC 3.01 L Hgb 8.2 L Hct 25.4 L MCV MCH 27 L MCHC RDW 17.5 H Lymph % (Auto) [place] % (Auto) Eos % (Auto) Lymph # [place] # Eos # Seg Neutrophils % Seg Neuts % (Manual) 78.0 H Lymphocytes % (Manual) 10.0 L Monocytes % (Manual) 12.0 H Eosinophils % (Manual) Nucleated RBC % Seg Neutrophils # Seg Neutrophils # Man 10.0 H Lymphocytes # (Manual) Monocytes # (Manual) 1.5 H Eosinophils # (Manual) PT INR APTT POC ABG pH ABG pH POC ABG pCO2 POC ABG pO2 ABG pO2 ABG HCO3 ABG O2 Saturation ABG Base Excess ABG Hemoglobin Oxyhemoglobin Sodium Potassium Chloride Carbon Dioxide BUN 106 H Creatinine Glucose POC Glucose 254 H Uric Acid Calcium Phosphorus Magnesium AST ALT Total Creatine Kinase CK-MB (CK-2) Troponin T NT-Pro-B Natriuret Pep Total Protein Albumin Triglycerides HDL Cholesterol Urine WBC (Auto) Urine Creatinine Urine Total Protein Vancomycin Trough 06/03/19 06/03/19 06/03/19 12:52 17:25 23:37 WBC RBC Hgb Hct MCV MCH MCHC RDW Lymph % (Auto) [place] % (Auto) Eos % (Auto) Lymph # [place] # Eos # Seg Neutrophils % Seg Neuts % (Manual) Lymphocytes % (Manual) Monocytes % (Manual) Eosinophils % (Manual) Nucleated RBC % Seg Neutrophils # Seg Neutrophils # Man Lymphocytes # (Manual) Monocytes # (Manual) Eosinophils # (Manual) PT INR APTT POC ABG pH ABG pH POC ABG pCO2 POC ABG pO2 ABG pO2 ABG HCO3 ABG O2 Saturation ABG Base Excess ABG Hemoglobin Oxyhemoglobin Sodium Potassium Chloride Carbon Dioxide BUN Creatinine Glucose POC Glucose 274 H 285 H 310 H Uric Acid Calcium Phosphorus Magnesium AST ALT Total Creatine Kinase CK-MB (CK-2) Troponin T NT-Pro-B Natriuret Pep Total Protein Albumin Triglycerides HDL Cholesterol Urine WBC (Auto) Urine Creatinine Urine Total Protein Vancomycin Trough 06/04/19 06/04/19 06/04/19 04:57 05:03 11:50 WBC RBC Hgb Hct MCV MCH MCHC RDW Lymph % (Auto) [place] % (Auto) Eos % (Auto) Lymph # [place] # Eos # Seg Neutrophils % Seg Neuts % (Manual) Lymphocytes % (Manual) Monocytes % (Manual) Eosinophils % (Manual) Nucleated RBC % Seg Neutrophils # Seg Neutrophils # Man Lymphocytes # (Manual) Monocytes # (Manual) Eosinophils # (Manual) PT INR APTT POC ABG pH 7.488 H ABG pH POC ABG pCO2 POC ABG pO2 ABG pO2 ABG HCO3 ABG O2 Saturation ABG Base Excess ABG Hemoglobin Oxyhemoglobin Sodium Potassium Chloride Carbon Dioxide BUN Creatinine Glucose POC Glucose 275 H 279 H Uric Acid Calcium Phosphorus Magnesium AST ALT Total Creatine Kinase CK-MB (CK-2) Troponin T NT-Pro-B Natriuret Pep Total Protein Albumin Triglycerides HDL Cholesterol Urine WBC (Auto) Urine Creatinine Urine Total Protein Vancomycin Trough 06/04/19 06/04/19 06/04/19 18:32 22:03 23:55 WBC RBC Hgb Hct MCV MCH MCHC RDW Lymph % (Auto) [place] % (Auto) Eos % (Auto) Lymph # [place] # Eos # Seg Neutrophils % Seg Neuts % (Manual) Lymphocytes % (Manual) Monocytes % (Manual) Eosinophils % (Manual) Nucleated RBC % Seg Neutrophils # Seg Neutrophils # Man Lymphocytes # (Manual) Monocytes # (Manual) Eosinophils # (Manual) PT INR APTT POC ABG pH ABG pH POC ABG pCO2 POC ABG pO2 ABG pO2 ABG HCO3 ABG O2 Saturation ABG Base Excess ABG Hemoglobin Oxyhemoglobin Sodium Potassium Chloride Carbon Dioxide BUN Creatinine Glucose POC Glucose 267 H 307 H 292 H Uric Acid Calcium Phosphorus Magnesium AST ALT Total Creatine Kinase CK-MB (CK-2) Troponin T NT-Pro-B Natriuret Pep Total Protein Albumin Triglycerides HDL Cholesterol Urine WBC (Auto) Urine Creatinine Urine Total Protein Vancomycin Trough 06/05/19 06/05/19 06/05/19 03:52 06:41 12:29 WBC RBC Hgb Hct MCV MCH MCHC RDW Lymph % (Auto) [place] % (Auto) Eos % (Auto) Lymph # [place] # Eos # Seg Neutrophils % Seg Neuts % (Manual) Lymphocytes % (Manual) Monocytes % (Manual) Eosinophils % (Manual) Nucleated RBC % Seg Neutrophils # Seg Neutrophils # Man Lymphocytes # (Manual) Monocytes # (Manual) Eosinophils # (Manual) PT INR APTT POC ABG pH 7.462 H ABG pH POC ABG pCO2 POC ABG pO2 ABG pO2 ABG HCO3 ABG O2 Saturation ABG Base Excess ABG Hemoglobin Oxyhemoglobin Sodium Potassium Chloride Carbon Dioxide BUN Creatinine Glucose POC Glucose 369 H 265 H Uric Acid Calcium Phosphorus Magnesium AST ALT Total Creatine Kinase CK-MB (CK-2) Troponin T NT-Pro-B Natriuret Pep Total Protein Albumin Triglycerides HDL Cholesterol Urine WBC (Auto) Urine Creatinine Urine Total Protein Vancomycin Trough 06/05/19 06/05/19 06/05/19 18:20 21:42 23:21 WBC RBC Hgb Hct MCV MCH MCHC RDW Lymph % (Auto) [place] % (Auto) Eos % (Auto) Lymph # [place] # Eos # Seg Neutrophils % Seg Neuts % (Manual) Lymphocytes % (Manual) Monocytes % (Manual) Eosinophils % (Manual) Nucleated RBC % Seg Neutrophils # Seg Neutrophils # Man Lymphocytes # (Manual) Monocytes # (Manual) Eosinophils # (Manual) PT INR APTT POC ABG pH ABG pH POC ABG pCO2 POC ABG pO2 ABG pO2 ABG HCO3 ABG O2 Saturation ABG Base Excess ABG Hemoglobin Oxyhemoglobin Sodium Potassium Chloride Carbon Dioxide BUN Creatinine Glucose POC Glucose 249 H 246 H 274 H Uric Acid Calcium Phosphorus Magnesium AST ALT Total Creatine Kinase CK-MB (CK-2) Troponin T NT-Pro-B Natriuret Pep Total Protein Albumin Triglycerides HDL Cholesterol Urine WBC (Auto) Urine Creatinine Urine Total Protein Vancomycin Trough 06/06/19 06/06/19 06/06/19 04:00 05:49 11:34 WBC 18.1 H RBC 3.53 L Hgb 9.5 L Hct 30.3 L MCV MCH 27 L MCHC 31 L RDW 19.5 H Lymph % (Auto) [place] % (Auto) Eos % (Auto) Lymph # [place] # Eos # Seg Neutrophils % Seg Neuts % (Manual) 87.0 H Lymphocytes % (Manual) 3.0 L Monocytes % (Manual) 8.0 H Eosinophils % (Manual) Nucleated RBC % Seg Neutrophils # Seg Neutrophils # Man 15.7 H Lymphocytes # (Manual) 0.5 L Monocytes # (Manual) 1.4 H Eosinophils # (Manual) PT INR APTT POC ABG pH ABG pH 7.472 H POC ABG pCO2 POC ABG pO2 ABG pO2 76.4 L ABG HCO3 28.1 H ABG O2 Saturation ABG Base Excess 4.3 H ABG Hemoglobin 12.5 L Oxyhemoglobin 93.8 L Sodium Potassium Chloride Carbon Dioxide BUN Creatinine Glucose POC Glucose 340 H Uric Acid Calcium Phosphorus Magnesium AST ALT Total Creatine Kinase CK-MB (CK-2) Troponin T NT-Pro-B Natriuret Pep Total Protein Albumin Triglycerides HDL Cholesterol Urine WBC (Auto) Urine Creatinine Urine Total Protein Vancomycin Trough 06/06/19 06/06/19 06/06/19 11:34 12:11 18:10 WBC RBC Hgb Hct MCV MCH MCHC RDW Lymph % (Auto) [place] % (Auto) Eos % (Auto) Lymph # [place] # Eos # Seg Neutrophils % Seg Neuts % (Manual) Lymphocytes % (Manual) Monocytes % (Manual) Eosinophils % (Manual) Nucleated RBC % Seg Neutrophils # Seg Neutrophils # Man Lymphocytes # (Manual) Monocytes # (Manual) Eosinophils # (Manual) PT INR APTT POC ABG pH ABG pH POC ABG pCO2 POC ABG pO2 ABG pO2 ABG HCO3 ABG O2 Saturation ABG Base Excess ABG Hemoglobin Oxyhemoglobin Sodium Potassium Chloride Carbon Dioxide BUN 70 H Creatinine Glucose 310 H POC Glucose 283 H 301 H Uric Acid Calcium 8.3 L Phosphorus 4.60 H Magnesium AST ALT 75 H Total Creatine Kinase CK-MB (CK-2) Troponin T NT-Pro-B Natriuret Pep Total Protein 5.6 L Albumin 2.9 L Triglycerides HDL Cholesterol Urine WBC (Auto) Urine Creatinine Urine Total Protein Vancomycin Trough 06/06/19 06/06/19 06/07/19 22:21 23:16 04:30 WBC RBC Hgb Hct MCV MCH MCHC RDW Lymph % (Auto) [place] % (Auto) Eos % (Auto) Lymph # [place] # Eos # Seg Neutrophils % Seg Neuts % (Manual) Lymphocytes % (Manual) Monocytes % (Manual) Eosinophils % (Manual) Nucleated RBC % Seg Neutrophils # Seg Neutrophils # Man Lymphocytes # (Manual) Monocytes # (Manual) Eosinophils # (Manual) PT INR APTT POC ABG pH ABG pH 7.480 H POC ABG pCO2 POC ABG pO2 ABG pO2 77.0 L ABG HCO3 27.2 H ABG O2 Saturation ABG Base Excess 3.5 H ABG Hemoglobin 7.1 L Oxyhemoglobin 94.2 L Sodium Potassium Chloride Carbon Dioxide BUN Creatinine Glucose POC Glucose 289 H 343 H Uric Acid Calcium Phosphorus Magnesium AST ALT Total Creatine Kinase CK-MB (CK-2) Troponin T NT-Pro-B Natriuret Pep Total Protein Albumin Triglycerides HDL Cholesterol Urine WBC (Auto) Urine Creatinine Urine Total Protein Vancomycin Trough 06/07/19 06/07/19 06/07/19 05:15 12:52 18:41 WBC RBC Hgb Hct MCV MCH MCHC RDW Lymph % (Auto) [place] % (Auto) Eos % (Auto) Lymph # [place] # Eos # Seg Neutrophils % Seg Neuts % (Manual) Lymphocytes % (Manual) Monocytes % (Manual) Eosinophils % (Manual) Nucleated RBC % Seg Neutrophils # Seg Neutrophils # Man Lymphocytes # (Manual) Monocytes # (Manual) Eosinophils # (Manual) PT INR APTT POC ABG pH ABG pH POC ABG pCO2 POC ABG pO2 ABG pO2 ABG HCO3 ABG O2 Saturation ABG Base Excess ABG Hemoglobin Oxyhemoglobin Sodium Potassium Chloride Carbon Dioxide BUN Creatinine Glucose POC Glucose 307 H 226 H 187 H Uric Acid Calcium Phosphorus Magnesium AST ALT Total Creatine Kinase CK-MB (CK-2) Troponin T NT-Pro-B Natriuret Pep Total Protein Albumin Triglycerides HDL Cholesterol Urine WBC (Auto) Urine Creatinine Urine Total Protein Vancomycin Trough 06/07/19 06/07/19 06/08/19 22:54 23:46 04:20 WBC 16.0 H RBC Hgb 10.0 L Hct 32.1 L MCV MCH 27 L MCHC 31 L RDW 19.4 H Lymph % (Auto) [place] % (Auto) Eos % (Auto) Lymph # [place] # Eos # Seg Neutrophils % Seg Neuts % (Manual) 87.0 H Lymphocytes % (Manual) 7.0 L Monocytes % (Manual) Eosinophils % (Manual) Nucleated RBC % Seg Neutrophils # Seg Neutrophils # Man 13.9 H Lymphocytes # (Manual) 1.1 L Monocytes # (Manual) 1.0 H Eosinophils # (Manual) PT INR APTT POC ABG pH ABG pH POC ABG pCO2 POC ABG pO2 ABG pO2 ABG HCO3 ABG O2 Saturation ABG Base Excess ABG Hemoglobin Oxyhemoglobin Sodium Potassium Chloride Carbon Dioxide BUN Creatinine Glucose POC Glucose 199 H 172 H Uric Acid Calcium Phosphorus Magnesium AST ALT Total Creatine Kinase CK-MB (CK-2) Troponin T NT-Pro-B Natriuret Pep Total Protein Albumin Triglycerides HDL Cholesterol Urine WBC (Auto) Urine Creatinine Urine Total Protein Vancomycin Trough 06/08/19 06/08/19 06/08/19 04:20 05:15 11:31 WBC RBC Hgb Hct MCV MCH MCHC RDW Lymph % (Auto) [place] % (Auto) Eos % (Auto) Lymph # [place] # Eos # Seg Neutrophils % Seg Neuts % (Manual) Lymphocytes % (Manual) Monocytes % (Manual) Eosinophils % (Manual) Nucleated RBC % Seg Neutrophils # Seg Neutrophils # Man Lymphocytes # (Manual) Monocytes # (Manual) Eosinophils # (Manual) PT INR APTT POC ABG pH ABG pH POC ABG pCO2 POC ABG pO2 ABG pO2 ABG HCO3 ABG O2 Saturation ABG Base Excess ABG Hemoglobin Oxyhemoglobin Sodium 146 H D Potassium Chloride Carbon Dioxide BUN 77 H Creatinine Glucose 205 H POC Glucose 209 H 181 H Uric Acid Calcium Phosphorus Magnesium AST ALT 66 H Total Creatine Kinase CK-MB (CK-2) Troponin T NT-Pro-B Natriuret Pep Total Protein 5.5 L Albumin 2.9 L Triglycerides HDL Cholesterol Urine WBC (Auto) Urine Creatinine Urine Total Protein Vancomycin Trough 06/08/19 06/08/19 06/09/19 17:28 23:24 05:20 WBC RBC Hgb Hct MCV MCH MCHC RDW Lymph % (Auto) [place] % (Auto) Eos % (Auto) Lymph # [place] # Eos # Seg Neutrophils % Seg Neuts % (Manual) Lymphocytes % (Manual) Monocytes % (Manual) Eosinophils % (Manual) Nucleated RBC % Seg Neutrophils # Seg Neutrophils # Man Lymphocytes # (Manual) Monocytes # (Manual) Eosinophils # (Manual) PT INR APTT POC ABG pH ABG pH POC ABG pCO2 POC ABG pO2 ABG pO2 ABG HCO3 ABG O2 Saturation ABG Base Excess ABG Hemoglobin Oxyhemoglobin Sodium Potassium Chloride Carbon Dioxide BUN Creatinine Glucose POC Glucose 215 H 200 H 173 H Uric Acid Calcium Phosphorus Magnesium AST ALT Total Creatine Kinase CK-MB (CK-2) Troponin T NT-Pro-B Natriuret Pep Total Protein Albumin Triglycerides HDL Cholesterol Urine WBC (Auto) Urine Creatinine Urine Total Protein Vancomycin Trough 06/09/19 06/09/19 06/09/19 12:07 18:32 23:51 WBC RBC Hgb Hct MCV MCH MCHC RDW Lymph % (Auto) [place] % (Auto) Eos % (Auto) Lymph # [place] # Eos # Seg Neutrophils % Seg Neuts % (Manual) Lymphocytes % (Manual) Monocytes % (Manual) Eosinophils % (Manual) Nucleated RBC % Seg Neutrophils # Seg Neutrophils # Man Lymphocytes # (Manual) Monocytes # (Manual) Eosinophils # (Manual) PT INR APTT POC ABG pH ABG pH POC ABG pCO2 POC ABG pO2 ABG pO2 ABG HCO3 ABG O2 Saturation ABG Base Excess ABG Hemoglobin Oxyhemoglobin Sodium Potassium Chloride Carbon Dioxide BUN Creatinine Glucose POC Glucose 117 H 169 H 147 H Uric Acid Calcium Phosphorus Magnesium AST ALT Total Creatine Kinase CK-MB (CK-2) Troponin T NT-Pro-B Natriuret Pep Total Protein Albumin Triglycerides HDL Cholesterol Urine WBC (Auto) Urine Creatinine Urine Total Protein Vancomycin Trough 06/10/19 06/10/19 06/10/19 05:45 05:45 06:01 WBC 14.6 H RBC Hgb 9.9 L Hct 32.2 L MCV MCH 27 L MCHC 31 L RDW 19.6 H Lymph % (Auto) 10.5 L [place] % (Auto) 9.4 H Eos % (Auto) Lymph # [place] # 1.4 H Eos # Seg Neutrophils % 79.9 H Seg Neuts % (Manual) Lymphocytes % (Manual) Monocytes % (Manual) Eosinophils % (Manual) Nucleated RBC % Seg Neutrophils # 11.7 H Seg Neutrophils # Man Lymphocytes # (Manual) Monocytes # (Manual) Eosinophils # (Manual) PT INR APTT POC ABG pH ABG pH POC ABG pCO2 POC ABG pO2 ABG pO2 ABG HCO3 ABG O2 Saturation ABG Base Excess ABG Hemoglobin Oxyhemoglobin Sodium 150 H Potassium Chloride 108.3 H Carbon Dioxide BUN 49 H Creatinine Glucose 172 H POC Glucose 165 H Uric Acid Calcium Phosphorus Magnesium 1.40 L AST ALT Total Creatine Kinase CK-MB (CK-2) Troponin T NT-Pro-B Natriuret Pep Total Protein Albumin Triglycerides HDL Cholesterol Urine WBC (Auto) Urine Creatinine Urine Total Protein Vancomycin Trough 06/10/19 06/10/19 12:11 18:30 WBC RBC Hgb Hct MCV MCH MCHC RDW Lymph % (Auto) [place] % (Auto) Eos % (Auto) Lymph # [place] # Eos # Seg Neutrophils % Seg Neuts % (Manual) Lymphocytes % (Manual) Monocytes % (Manual) Eosinophils % (Manual) Nucleated RBC % Seg Neutrophils # Seg Neutrophils # Man Lymphocytes # (Manual) Monocytes # (Manual) Eosinophils # (Manual) PT INR APTT POC ABG pH ABG pH POC ABG pCO2 POC ABG pO2 ABG pO2 ABG HCO3 ABG O2 Saturation ABG Base Excess ABG Hemoglobin Oxyhemoglobin Sodium Potassium Chloride Carbon Dioxide BUN Creatinine Glucose POC Glucose 150 H 154 H Uric Acid Calcium Phosphorus Magnesium AST ALT Total Creatine Kinase CK-MB (CK-2) Troponin T NT-Pro-B Natriuret Pep Total Protein Albumin Triglycerides HDL Cholesterol Urine WBC (Auto) Urine Creatinine Urine Total Protein Vancomycin Trough Assessment and Plan Patient is a 34-year-old man with a history of obesity. Patient presented on 05/01/2019 with shortness of breath. The patient reportedly was found to be in severe hypoxia, and bradycardia. Patient went into respiratory arrest, and coded. He required intubation, and reportedly required CPR. According patient's clinical findings, it is likely that the patient has metabolic encephalopathy as well as anoxic encephalopathy. Can support his diagnosis, the patient had an initial episode of severe hypoxia, and has also had during the course of admission HPI, leukocytosis, and hypernatremia. Plan: 1. Metabolic/Anoxic Encephalopathy: - Unable to have TABLE TOP TILE SETTER imaging due to body habitus - EEG: generalized slowing. No seizures or epileptiform activity - Continue to investigate correct metabolic abnormalities and infections per primary team - Cont. keppra, as patient had hypoxic brain injury, which could lower seizure threshold. - Cont. supportive care per primary/ICU teams - Will continue to monitor neurologic status. Thank you for allowing me to take part in the care of this patient. Daniele Hebert MD Neurology
--- NOTE | 2019-06-10 19:51 | Electroencephalogram Report ---
Electroencephalogram EEG Date of exam: 06/10/19 History: Patient is a 34-year-old man with a history of obesity. Patient presented on 05/01/2019 with shortness of breath. The patient reportedly was found to be in severe hypoxia, and bradycardia. Patient went into respiratory arrest and required intubation and resuscitation. Description: Impression: 1. Generalized slowing 2. No seizures noted during recording. Description: At the onset of this recording, the patient is lying supine. The background we note a 4 Hz delta activity that has an amplitude ranging 20-30 V. There are no asymmetries in amplitude or frequency between hemispheres. Intermittent photic stimulation was not performed. Hyperventilation was not performed. Significant lead and movement artifact were noted during EEG recording. Interpretation: This routine EEG performed during sleep is abnormal secondary to above findings and is consistent with bihemispheric dysfunction and encephalopathy. The above described findings of diffuse slowing is etiologically nonspecific, and similar findings have been reported in cases of toxic, metabolic, hypoxic ischemic, infectious, medication, sleep deprivation, dementia, postictal state, and other causes of diffuse and multifocal encephalopathy.
[2019-06-10] MEDS: labetaloL 100 MG/20 ML INJ MDV IV PRN (22:35)
[2019-06-11] MEDS: INSULIN LISPRO 100 UNIT/ML SUB-Q SCH ×3 (00:48→18:16)
[2019-06-11] MEDS: INSULIN GLARGINE 100 UNITS/ML SUB-Q SCH ×2 (00:48→22:55)
[2019-06-11] MEDS: hydrALAZINE 20 MG/1 ML INJ IV PRN ×2 (04:52→18:17)
[2019-06-11] MEDS: methylPREDNISolone Sod Succinate 40 MG/1 ML INJ IV SCH ×3 (06:16→22:50)
[2019-06-11] MEDS: labetaloL 100 MG/20 ML INJ MDV IV PRN ×2 (06:16→15:38)
[2019-06-11 09:48] LABS: BUN/Creatinine Ratio 46; Blood Urea Nitrogen 41 mg/dL (9-20); Hemolysis Index 3
[2019-06-11] MEDS: levETIRAcetam 750 MG in DEXTROSE 5% IN WATER 100 ML IV SCH ×2 (10:57→22:52)
[2019-06-11] MEDS: ENOXAPARIN 30 MG/0.3 ML INJ SUB-Q SCH (10:57)
[2019-06-11] MEDS: DEXTROSE 5% IN WATER 1,000 ML IV SCH ×2 (10:58→18:18)
[2019-06-11] MEDS: MINOXIDIL 2.5 MG TAB PO SCH ×2 (10:59→22:56)
[2019-06-11] MEDS: FAMOTIDINE 20 MG TAB PO SCH (10:59)
--- NOTE | 2019-06-11 11:40 | Progress Note ---
Assessment and Plan # Acute kidney injury on HD: creatinine had worsened, potentially from vancomycin toxicity, now HD dependent. Initially with suspected tubular injury in setting of sepsis, respiratory failure, hypotension. He is making urine now so hopeful for renal recovery; will follow labs/urine output for renal recovery- creatinine improved to 0.9 off HD for 3 days, BUN downtrending - hold HD for now, continue to trend labs and urine output and hold off HD as able - agree with D5W for hypernatremia, may need to increase rate and/or start free water flushes with tube feeds if tolerating - continue supportive measures, appreciate pulm and ID input - avoid nephrotoxins - appreciate vascular assistance with vas-cath placement - daily labs # HTN: BP high again this AM. Consider diuretic challenge rather than UF cinthia delia with HD if volume removal is needed to assist with respiratory status; avoid for now given free water deficit. If diuretic is needed for volume removal, would use high dose to challenge (160mg x1, assess, repeat prn). # Anemia: hemoglobin 10.0, pRBC transfusion prn. Hold ESAs # Encephalopathy, seizure disorder, hypoxic respiratory failure, fevers: ID and pulm following, improving We'll continue to follow and make recommendation from renal standpoint for this critically ill patient; we appreciate the opportunity to assist in his care. Subjective Date of service: 06/11/19 Principal diagnosis: HF; acute hypoxemic resp failure, SIRS, CARLA Interval history: No acute issues noted. Remains more alert and follows basic commands Objective - Exam Narrative Exam: General: No acute distress. Alert but not oriented. Obese HEENT: NC/AT Neck: Supple Chest: decreased breath sounds Heart: Regular rate and rhythm Abdomen: Soft nontender Extremity: no edema Psych: no agitation Neuro: follows basic commands Derm: No petechial rash - Vital Signs Vital signs: Vital Signs - 12hr 06/10/19 06/10/19 06/11/19 23:54 23:57 00:00 Temperature Pulse Rate 88 94 H Pulse Rate [ 94 H From Monitor] Respiratory 25 H 25 H 21 Rate Blood Pressure 138/81 177/108 O2 Sat by Pulse 89 93 92 Oximetry 06/11/19 06/11/19 06/11/19 00:01 00:07 00:31 Temperature 98.2 F Pulse Rate 95 H 93 H Pulse Rate [ From Monitor] Respiratory 30 H 23 Rate Blood Pressure 177/108 177/108 O2 Sat by Pulse 94 92 Oximetry 06/11/19 06/11/19 06/11/19 01:01 01:30 02:01 Temperature Pulse Rate 93 H 93 H 94 H Pulse Rate [ From Monitor] Respiratory 21 32 H 22 Rate Blood Pressure 176/98 177/108 177/108 O2 Sat by Pulse 93 93 92 Oximetry 06/11/19 06/11/19 06/11/19 02:31 03:01 03:18 Temperature Pulse Rate 75 86 86 Pulse Rate [ From Monitor] Respiratory 12 18 Rate Blood Pressure 177/108 177/108 O2 Sat by Pulse 95 94 Oximetry 06/11/19 06/11/19 06/11/19 03:31 03:33 04:00 Temperature Pulse Rate 84 94 H Pulse Rate [ 85 From Monitor] Respiratory 20 19 25 H Rate Blood Pressure 177/108 181/108 O2 Sat by Pulse 96 97 95 Oximetry 06/11/19 06/11/19 06/11/19 04:31 04:52 04:55 Temperature 98.3 F Pulse Rate 90 94 H Pulse Rate [ From Monitor] Respiratory 22 Rate Blood Pressure 188/118 188/118 O2 Sat by Pulse 88 Oximetry 06/11/19 06/11/19 06/11/19 05:01 05:03 05:31 Temperature Pulse Rate 87 87 102 H Pulse Rate [ From Monitor] Respiratory 20 20 29 H Rate Blood Pressure 188/118 188/118 184/107 O2 Sat by Pulse 96 94 96 Oximetry 06/11/19 06/11/19 06/11/19 06:01 06:16 08:00 Temperature 99.2 F Pulse Rate 99 H 97 H Pulse Rate [ From Monitor] Respiratory 32 H Rate Blood Pressure 184/107 182/110 O2 Sat by Pulse 94 Oximetry 06/11/19 08:57 Temperature Pulse Rate 79 Pulse Rate [ From Monitor] Respiratory 20 Rate Blood Pressure 207/120 O2 Sat by Pulse 98 Oximetry - Lab 06/10/19 05:45 06/11/19 08:34 Most recent lab results ABG pH 7.480 pH Units (7.350-7.450) H 06/07/19 04:30 ABG pCO2 37.4 mm Hg 06/07/19 04:30 ABG pO2 77.0 mm Hg (80.0-90.0) L 06/07/19 04:30 ABG HCO3 27.2 mmol/L (20.0-26.0) H 06/07/19 04:30 ABG O2 Saturation 96.7 % (95.0-99.0) 06/07/19 04:30 Calcium 9.0 mg/dL (8.4-10.2) 06/11/19 08:34 Phosphorus 3.70 mg/dL (2.5-4.5) 06/10/19 05:45 Magnesium 1.40 mg/dL (1.7-2.3) L 06/10/19 05:45 Urine Creatinine 292.8 mg/dL (0.1-20.0) H 05/07/19 22:40 Urine Sodium 11 mmol/L 05/07/19 22:40 Urine Total Protein 269 mg/dL (5-11.8) H 05/07/19 22:40 Medications & Allergies - Medications Allergies/Adverse Reactions: Allergies No Known Allergies Allergy (Verified 05/01/19 20:27) Home Medications: Home Medications Medication Instructions Recorded Confirmed Last Taken Type No Known Home Medications [No 05/03/19 05/03/19 Unknown History Reported Home Medications] Active Medications: Generic Name Dose Route Start Last Admin Trade Name Freq PRN Reason Stop Dose Admin Albumin Human 25 gm 05/19/19 10:47 Alburx 25% (Albumin) IV ARIANE PRN Hypotension Lipase/Protease/Amylase 1 each 05/14/19 15:01 Pancreaze 10,500 Unit FEEDTUBE PRN PRN For Clogged Feeding Tube Clonidine HCl 0.3 mg 06/06/19 20:00 06/06/19 20:38 Catapres-Tts Patch TD 0.3 mg Lao VICKEY Administration Dextrose 50 gm 05/01/19 20:24 D50w (25gm) Vial IV Q30MIN PRN Hypoglycemia Protocol Enoxaparin Sodium 30 mg 05/16/19 10:00 06/11/19 10:57 Enoxaparin SUB-Q 30 mg QDAY VICKYE Administration Famotidine 20 mg 05/16/19 10:00 06/11/19 10:59 Pepcid PO Not Given DAILY VICKEY Hydralazine HCl 20 mg 05/13/19 08:09 06/11/19 04:52 Apresoline IV 20 mg Q4HR PRN Administration SBP >/=160 Levetiracetam 750 mg/ Dextrose 107.5 mls @ 400 mls/hr 06/09/19 22:00 06/11/19 10:57 IV 400 mls/hr Q12HR VICKEY Administration Dextrose 1,000 mls @ 125 mls/hr 06/10/19 08:00 06/11/19 10:58 D5w IV 125 mls/hr DIRECT VICKEY Administration Insulin Glargine 20 units 06/07/19 22:00 06/11/19 00:48 Lantus SUB-Q Not Given QHS VICKEY Insulin Human Lispro 0 unit 06/01/19 14:00 06/11/19 06:17 Humalog SUB-Q 3 unit Q6HR VICKEY Administration Protocol Labetalol HCl 10 mg 06/09/19 23:00 06/11/19 06:16 Labetalol IV 10 mg Q4H PRN Administration BP >170/105; hold for HR <60 Methylprednisolone Sodium Succinate 40 mg 06/10/19 14:00 06/11/19 06:16 Solu-Medrol IV 40 mg Q8HR VICKEY Administration Minoxidil 2.5 mg 06/06/19 22:00 06/11/19 10:59 Loniten PO Not Given BID VICKEY Simple Syrup 15 ml 05/14/19 15:01 Simple Syrup FEEDTUBE PRN PRN Hypoglycemia Simple Syrup 30 ml 05/14/19 15:01 Simple Syrup FEEDTUBE PRN PRN Hypoglycemia Sodium Bicarbonate 325 mg 05/14/19 15:01 Sodium Bicarbonate FEEDTUBE PRN PRN For Clogged Feeding Tube
--- NOTE | 2019-06-11 12:02 | Progress Note ---
Assessment and Plan 34 y/o male with acute hypoxic, hypercapnic respiratory failure currently ventilated and sedated, now with persistent fevers and seizure and on HD 06/10/2019: Bipap at night and PRN. Na levels are increasing. Agree with D5W. Unable to place DH, several nurses tried. Will ask speech to come by and reassess now that patient is more willing to cooperate. . Continue PT/OT, sat up on side of bed yesterday. Continue IMCU monitoring for now. As stated below, patient was intubated for 37 days. 2. 37 days of intubation. Extubated on 06/07/2019 Subjective Date of service: 06/11/19 Principal diagnosis: HF; acute hypoxemic resp failure, SIRS, CARLA Interval history: No acute events. IMS consulted Neurology for Altered Mental status. Patient has been awake and alert. Following commands with no issues. He sometimes very hard of hearing. Today the same, currently on nasal PPV and has not been taken off yet. Objective Vital Signs - 12hr 06/11/19 06/11/19 06/11/19 00:00 00:01 00:07 Temperature 98.2 F Pulse Rate 94 H 95 H Pulse Rate [ From Monitor] Respiratory 21 30 H Rate Blood Pressure 177/108 177/108 O2 Sat by Pulse 92 94 Oximetry 06/11/19 06/11/19 06/11/19 00:31 01:01 01:30 Temperature Pulse Rate 93 H 93 H 93 H Pulse Rate [ From Monitor] Respiratory 23 21 32 H Rate Blood Pressure 177/108 176/98 177/108 O2 Sat by Pulse 92 93 93 Oximetry 06/11/19 06/11/19 06/11/19 02:01 02:31 03:01 Temperature Pulse Rate 94 H 75 86 Pulse Rate [ From Monitor] Respiratory 22 12 18 Rate Blood Pressure 177/108 177/108 177/108 O2 Sat by Pulse 92 95 94 Oximetry 06/11/19 06/11/19 06/11/19 03:18 03:31 03:33 Temperature Pulse Rate 86 84 Pulse Rate [ 85 From Monitor] Respiratory 20 19 Rate Blood Pressure 177/108 O2 Sat by Pulse 96 97 Oximetry 06/11/19 06/11/19 06/11/19 04:00 04:31 04:52 Temperature Pulse Rate 94 H 90 94 H Pulse Rate [ From Monitor] Respiratory 25 H 22 Rate Blood Pressure 181/108 188/118 188/118 O2 Sat by Pulse 95 88 Oximetry 06/11/19 06/11/19 06/11/19 04:55 05:01 05:03 Temperature 98.3 F Pulse Rate 87 87 Pulse Rate [ From Monitor] Respiratory 20 20 Rate Blood Pressure 188/118 188/118 O2 Sat by Pulse 96 94 Oximetry 06/11/19 06/11/19 06/11/19 05:31 06:01 06:16 Temperature Pulse Rate 102 H 99 H 97 H Pulse Rate [ From Monitor] Respiratory 29 H 32 H Rate Blood Pressure 184/107 184/107 182/110 O2 Sat by Pulse 96 94 Oximetry 06/11/19 06/11/19 08:00 08:57 Temperature 99.2 F Pulse Rate 79 Pulse Rate [ From Monitor] Respiratory 20 Rate Blood Pressure 207/120 O2 Sat by Pulse 98 Oximetry Constitutional: no acute distress, other (morbidly obese male, on vent, orally intubated) Eyes: non-icteric ENT: oropharynx moist Neck: other (extremely large in circumference) Effort: normal Ascultation: Bilateral: diminished breath sounds (secondary to body habitus) Cardiovascular: regular rate and rhythm (no mrg) Gastrointestinal: normoactive bowel sounds, soft, non-tender Integumentary: other (L hand is wrapped) Extremities: no cyanosis, pink and warm, other (1+ generalized edema) Neurologic: unable to assess Psychiatric: other (unable to assess) CBC and BMP: 06/10/19 05:45 06/11/19 08:34 ABG, PT/INR, D-dimer: ABG POC ABG pH 7.462 (7.35-7.45) H 06/05/19 03:52 ABG pH 7.480 pH Units (7.350-7.450) H 06/07/19 04:30 POC ABG pCO2 39.8 (35-45) 06/05/19 03:52 ABG pCO2 37.4 mm Hg 06/07/19 04:30 POC ABG pO2 86 (80-105) 06/05/19 03:52 ABG pO2 77.0 mm Hg (80.0-90.0) L 06/07/19 04:30 POC ABG HCO3 28.4 (22-26 mml/L) 06/05/19 03:52 POC ABG Total CO2 30 (23-27mmol/L) 06/05/19 03:52 POC ABG O2 Sat 97 06/05/19 03:52 ABG O2 Saturation 96.7 % (95.0-99.0) 06/07/19 04:30 PT/INR, D-dimer PT 15.4 Sec. (12.2-14.9) H 05/01/19 Unknown INR 1.23 (0.87-1.13) H 05/01/19 Unknown Abnormal lab findings: Abnormal Labs 05/01/19 05/01/19 05/01/19 17:50 19:26 22:36 WBC RBC Hgb Hct MCV MCH MCHC RDW Lymph % (Auto) [place] % (Auto) Eos % (Auto) Lymph # [place] # Eos # Seg Neutrophils % Seg Neuts % (Manual) Lymphocytes % (Manual) Monocytes % (Manual) Eosinophils % (Manual) Nucleated RBC % Seg Neutrophils # Seg Neutrophils # Man Lymphocytes # (Manual) Monocytes # (Manual) Eosinophils # (Manual) PT INR APTT POC ABG pH 7.272 L 7.331 L ABG pH POC ABG pCO2 52.8 H POC ABG pO2 ABG pO2 ABG HCO3 ABG O2 Saturation ABG Base Excess ABG Hemoglobin Oxyhemoglobin Sodium 136 L Potassium 6.5 H* Chloride 97.2 L Carbon Dioxide BUN 60 H Creatinine Glucose 113 H POC Glucose Uric Acid Calcium Phosphorus Magnesium 2.40 H AST 139 H ALT 154 H Total Creatine Kinase CK-MB (CK-2) Troponin T NT-Pro-B Natriuret Pep Total Protein Albumin 3.8 L Triglycerides HDL Cholesterol Urine WBC (Auto) Urine Creatinine Urine Total Protein Vancomycin Trough 05/01/19 05/01/19 05/01/19 Unknown Unknown Unknown WBC 16.1 H RBC Hgb Hct MCV MCH MCHC RDW 17.2 H Lymph % (Auto) [place] % (Auto) 9.6 H Eos % (Auto) Lymph # [place] # 1.5 H Eos # Seg Neutrophils % 73.0 H Seg Neuts % (Manual) Lymphocytes % (Manual) Monocytes % (Manual) Eosinophils % (Manual) Nucleated RBC % Seg Neutrophils # 11.7 H Seg Neutrophils # Man Lymphocytes # (Manual) Monocytes # (Manual) Eosinophils # (Manual) PT 15.4 H INR 1.23 H APTT 22.7 L POC ABG pH ABG pH POC ABG pCO2 POC ABG pO2 ABG pO2 ABG HCO3 ABG O2 Saturation ABG Base Excess ABG Hemoglobin Oxyhemoglobin Sodium Potassium Chloride Carbon Dioxide BUN Creatinine Glucose POC Glucose Uric Acid Calcium Phosphorus Magnesium AST ALT Total Creatine Kinase CK-MB (CK-2) Troponin T NT-Pro-B Natriuret Pep 6831 H Total Protein Albumin Triglycerides HDL Cholesterol Urine WBC (Auto) Urine Creatinine Urine Total Protein Vancomycin Trough 05/01/19 05/02/19 05/02/19 Unknown 00:06 00:06 WBC RBC Hgb Hct MCV MCH MCHC RDW Lymph % (Auto) [place] % (Auto) Eos % (Auto) Lymph # [place] # Eos # Seg Neutrophils % Seg Neuts % (Manual) Lymphocytes % (Manual) Monocytes % (Manual) Eosinophils % (Manual) Nucleated RBC % Seg Neutrophils # Seg Neutrophils # Man Lymphocytes # (Manual) Monocytes # (Manual) Eosinophils # (Manual) PT INR APTT POC ABG pH ABG pH POC ABG pCO2 POC ABG pO2 ABG pO2 ABG HCO3 ABG O2 Saturation ABG Base Excess ABG Hemoglobin Oxyhemoglobin Sodium Potassium Chloride Carbon Dioxide BUN Creatinine Glucose POC Glucose Uric Acid Calcium Phosphorus 4.90 H Magnesium AST ALT Total Creatine Kinase 226 H CK-MB (CK-2) 5.7 H Troponin T 0.044 H NT-Pro-B Natriuret Pep Total Protein Albumin Triglycerides 182 H HDL Cholesterol 18 L Urine WBC (Auto) Urine Creatinine Urine Total Protein Vancomycin Trough 05/02/19 05/02/19 05/02/19 02:08 04:40 04:41 WBC 17.6 H RBC Hgb Hct MCV MCH 27 L MCHC RDW 17.4 H Lymph % (Auto) 10.2 L [place] % (Auto) 11.0 H Eos % (Auto) Lymph # [place] # 1.9 H Eos # Seg Neutrophils % 78.0 H Seg Neuts % (Manual) Lymphocytes % (Manual) Monocytes % (Manual) Eosinophils % (Manual) Nucleated RBC % Seg Neutrophils # 13.8 H Seg Neutrophils # Man Lymphocytes # (Manual) Monocytes # (Manual) Eosinophils # (Manual) PT INR APTT POC ABG pH ABG pH POC ABG pCO2 46.8 H POC ABG pO2 63 L ABG pO2 ABG HCO3 ABG O2 Saturation ABG Base Excess ABG Hemoglobin Oxyhemoglobin Sodium Potassium Chloride 96.3 L Carbon Dioxide BUN 63 H Creatinine 1.7 H Glucose POC Glucose Uric Acid Calcium Phosphorus Magnesium AST ALT Total Creatine Kinase CK-MB (CK-2) Troponin T NT-Pro-B Natriuret Pep Total Protein Albumin Triglycerides HDL Cholesterol Urine WBC (Auto) Urine Creatinine Urine Total Protein Vancomycin Trough 05/02/19 05/02/19 05/02/19 04:41 04:41 16:05 WBC RBC Hgb Hct MCV MCH MCHC RDW Lymph % (Auto) [place] % (Auto) Eos % (Auto) Lymph # [place] # Eos # Seg Neutrophils % Seg Neuts % (Manual) Lymphocytes % (Manual) Monocytes % (Manual) Eosinophils % (Manual) Nucleated RBC % Seg Neutrophils # Seg Neutrophils # Man Lymphocytes # (Manual) Monocytes # (Manual) Eosinophils # (Manual) PT INR APTT POC ABG pH ABG pH POC ABG pCO2 POC ABG pO2 ABG pO2 66.6 L ABG HCO3 31.9 H ABG O2 Saturation 92.5 L ABG Base Excess 5.8 H ABG Hemoglobin 13.3 L Oxyhemoglobin 90.6 L Sodium Potassium Chloride 97.2 L Carbon Dioxide BUN 61 H Creatinine 1.8 H Glucose POC Glucose Uric Acid Calcium Phosphorus Magnesium AST ALT Total Creatine Kinase CK-MB (CK-2) 5.2 H Troponin T 0.067 H D NT-Pro-B Natriuret Pep Total Protein Albumin Triglycerides HDL Cholesterol Urine WBC (Auto) Urine Creatinine Urine Total Protein Vancomycin Trough 05/02/19 05/03/19 05/03/19 20:39 04:35 05:05 WBC 11.8 H RBC Hgb Hct MCV MCH 27 L MCHC 31 L RDW 17.2 H Lymph % (Auto) [place] % (Auto) Eos % (Auto) Lymph # [place] # Eos # Seg Neutrophils % Seg Neuts % (Manual) Lymphocytes % (Manual) Monocytes % (Manual) Eosinophils % (Manual) Nucleated RBC % Seg Neutrophils # Seg Neutrophils # Man Lymphocytes # (Manual) Monocytes # (Manual) Eosinophils # (Manual) PT INR APTT POC ABG pH ABG pH POC ABG pCO2 53.6 H 54.0 H POC ABG pO2 55 L 63 L ABG pO2 ABG HCO3 ABG O2 Saturation ABG Base Excess ABG Hemoglobin Oxyhemoglobin Sodium Potassium Chloride Carbon Dioxide BUN Creatinine Glucose POC Glucose Uric Acid Calcium Phosphorus Magnesium AST ALT Total Creatine Kinase CK-MB (CK-2) Troponin T NT-Pro-B Natriuret Pep Total Protein Albumin Triglycerides HDL Cholesterol Urine WBC (Auto) Urine Creatinine Urine Total Protein Vancomycin Trough 05/03/19 05/03/19 05/03/19 05:05 10:55 16:48 WBC RBC Hgb Hct MCV MCH MCHC RDW Lymph % (Auto) [place] % (Auto) Eos % (Auto) Lymph # [place] # Eos # Seg Neutrophils % Seg Neuts % (Manual) Lymphocytes % (Manual) Monocytes % (Manual) Eosinophils % (Manual) Nucleated RBC % Seg Neutrophils # Seg Neutrophils # Man Lymphocytes # (Manual) Monocytes # (Manual) Eosinophils # (Manual) PT INR APTT POC ABG pH 7.604 H ABG pH POC ABG pCO2 POC ABG pO2 58 L ABG pO2 ABG HCO3 ABG O2 Saturation ABG Base Excess ABG Hemoglobin Oxyhemoglobin Sodium Potassium Chloride Carbon Dioxide BUN 52 H Creatinine 1.9 H Glucose 103 H POC Glucose Uric Acid Calcium Phosphorus Magnesium AST ALT Total Creatine Kinase CK-MB (CK-2) Troponin T NT-Pro-B Natriuret Pep Total Protein Albumin Triglycerides HDL Cholesterol Urine WBC (Auto) 33.0 H Urine Creatinine Urine Total Protein Vancomycin Trough 05/04/19 05/04/19 05/04/19 04:49 06:50 06:50 WBC 16.0 H RBC Hgb Hct MCV MCH 27 L MCHC 31 L RDW 17.8 H Lymph % (Auto) [place] % (Auto) Eos % (Auto) Lymph # [place] # Eos # Seg Neutrophils % Seg Neuts % (Manual) Lymphocytes % (Manual) Monocytes % (Manual) Eosinophils % (Manual) Nucleated RBC % Seg Neutrophils # Seg Neutrophils # Man Lymphocytes # (Manual) Monocytes # (Manual) Eosinophils # (Manual) PT INR APTT POC ABG pH 7.273 L ABG pH POC ABG pCO2 POC ABG pO2 ABG pO2 ABG HCO3 ABG O2 Saturation ABG Base Excess ABG Hemoglobin Oxyhemoglobin Sodium 148 H Potassium 5.5 H Chloride Carbon Dioxide BUN 53 H Creatinine 3.3 H D Glucose 106 H POC Glucose Uric Acid Calcium 8.3 L Phosphorus Magnesium AST ALT Total Creatine Kinase CK-MB (CK-2) Troponin T NT-Pro-B Natriuret Pep Total Protein Albumin Triglycerides HDL Cholesterol Urine WBC (Auto) Urine Creatinine Urine Total Protein Vancomycin Trough 05/05/19 05/05/19 05/05/19 00:05 04:30 05:00 WBC RBC Hgb Hct MCV MCH MCHC RDW Lymph % (Auto) [place] % (Auto) Eos % (Auto) Lymph # [place] # Eos # Seg Neutrophils % Seg Neuts % (Manual) Lymphocytes % (Manual) Monocytes % (Manual) Eosinophils % (Manual) Nucleated RBC % Seg Neutrophils # Seg Neutrophils # Man Lymphocytes # (Manual) Monocytes # (Manual) Eosinophils # (Manual) PT INR APTT POC ABG pH 7.225 L ABG pH POC ABG pCO2 > 70 H POC ABG pO2 ABG pO2 ABG HCO3 ABG O2 Saturation ABG Base Excess ABG Hemoglobin Oxyhemoglobin Sodium 151 H Potassium 5.1 H Chloride Carbon Dioxide BUN 64 H Creatinine 3.5 H Glucose 117 H POC Glucose 141 H Uric Acid Calcium 7.5 L Phosphorus Magnesium AST 93 H ALT 65 H Total Creatine Kinase CK-MB (CK-2) Troponin T NT-Pro-B Natriuret Pep Total Protein Albumin 2.9 L Triglycerides HDL Cholesterol Urine WBC (Auto) Urine Creatinine Urine Total Protein Vancomycin Trough 05/05/19 05/05/19 05/05/19 05:00 12:02 17:46 WBC 12.0 H RBC Hgb 11.3 L Hct MCV MCH 27 L MCHC 30 L RDW 18.4 H Lymph % (Auto) 7.9 L [place] % (Auto) 10.2 H Eos % (Auto) Lymph # 1.0 L [place] # 1.2 H Eos # Seg Neutrophils % 80.8 H Seg Neuts % (Manual) Lymphocytes % (Manual) Monocytes % (Manual) Eosinophils % (Manual) Nucleated RBC % Seg Neutrophils # 9.7 H Seg Neutrophils # Man Lymphocytes # (Manual) Monocytes # (Manual) Eosinophils # (Manual) PT INR APTT POC ABG pH ABG pH POC ABG pCO2 POC ABG pO2 ABG pO2 ABG HCO3 ABG O2 Saturation ABG Base Excess ABG Hemoglobin Oxyhemoglobin Sodium Potassium Chloride Carbon Dioxide BUN Creatinine Glucose POC Glucose 125 H 112 H Uric Acid Calcium Phosphorus Magnesium AST ALT Total Creatine Kinase CK-MB (CK-2) Troponin T NT-Pro-B Natriuret Pep Total Protein Albumin Triglycerides HDL Cholesterol Urine WBC (Auto) Urine Creatinine Urine Total Protein Vancomycin Trough 05/05/19 05/06/19 05/06/19 23:42 03:58 04:45 WBC 11.4 H RBC Hgb 10.7 L Hct 34.2 L MCV MCH 27 L MCHC 31 L RDW 16.9 H Lymph % (Auto) [place] % (Auto) Eos % (Auto) Lymph # [place] # Eos # Seg Neutrophils % Seg Neuts % (Manual) Lymphocytes % (Manual) Monocytes % (Manual) Eosinophils % (Manual) Nucleated RBC % Seg Neutrophils # Seg Neutrophils # Man Lymphocytes # (Manual) Monocytes # (Manual) Eosinophils # (Manual) PT INR APTT POC ABG pH ABG pH POC ABG pCO2 62.4 H POC ABG pO2 111 H ABG pO2 ABG HCO3 ABG O2 Saturation ABG Base Excess ABG Hemoglobin Oxyhemoglobin Sodium Potassium Chloride Carbon Dioxide BUN Creatinine Glucose POC Glucose 128 H Uric Acid Calcium Phosphorus Magnesium AST ALT Total Creatine Kinase CK-MB (CK-2) Troponin T NT-Pro-B Natriuret Pep Total Protein Albumin Triglycerides HDL Cholesterol Urine WBC (Auto) Urine Creatinine Urine Total Protein Vancomycin Trough 05/06/19 05/06/19 05/06/19 04:45 05:33 12:30 WBC RBC Hgb Hct MCV MCH MCHC RDW Lymph % (Auto) [place] % (Auto) Eos % (Auto) Lymph # [place] # Eos # Seg Neutrophils % Seg Neuts % (Manual) Lymphocytes % (Manual) Monocytes % (Manual) Eosinophils % (Manual) Nucleated RBC % Seg Neutrophils # Seg Neutrophils # Man Lymphocytes # (Manual) Monocytes # (Manual) Eosinophils # (Manual) PT INR APTT POC ABG pH ABG pH POC ABG pCO2 POC ABG pO2 ABG pO2 ABG HCO3 ABG O2 Saturation ABG Base Excess ABG Hemoglobin Oxyhemoglobin Sodium 149 H Potassium Chloride Carbon Dioxide 31 H BUN 67 H Creatinine 3.2 H Glucose 125 H POC Glucose 117 H 116 H Uric Acid Calcium 7.5 L Phosphorus Magnesium AST ALT Total Creatine Kinase CK-MB (CK-2) Troponin T NT-Pro-B Natriuret Pep Total Protein Albumin Triglycerides HDL Cholesterol Urine WBC (Auto) Urine Creatinine Urine Total Protein Vancomycin Trough 05/06/19 05/06/19 05/07/19 18:34 23:16 05:22 WBC RBC Hgb Hct MCV MCH MCHC RDW Lymph % (Auto) [place] % (Auto) Eos % (Auto) Lymph # [place] # Eos # Seg Neutrophils % Seg Neuts % (Manual) Lymphocytes % (Manual) Monocytes % (Manual) Eosinophils % (Manual) Nucleated RBC % Seg Neutrophils # Seg Neutrophils # Man Lymphocytes # (Manual) Monocytes # (Manual) Eosinophils # (Manual) PT INR APTT POC ABG pH ABG pH POC ABG pCO2 POC ABG pO2 ABG pO2 ABG HCO3 ABG O2 Saturation ABG Base Excess ABG Hemoglobin Oxyhemoglobin Sodium Potassium Chloride Carbon Dioxide BUN Creatinine Glucose POC Glucose 128 H 143 H 166 H Uric Acid Calcium Phosphorus Magnesium AST ALT Total Creatine Kinase CK-MB (CK-2) Troponin T NT-Pro-B Natriuret Pep Total Protein Albumin Triglycerides HDL Cholesterol Urine WBC (Auto) Urine Creatinine Urine Total Protein Vancomycin Trough 05/07/19 05/07/19 05/07/19 06:33 07:03 09:35 WBC RBC Hgb Hct MCV MCH MCHC RDW Lymph % (Auto) [place] % (Auto) Eos % (Auto) Lymph # [place] # Eos # Seg Neutrophils % Seg Neuts % (Manual) Lymphocytes % (Manual) Monocytes % (Manual) Eosinophils % (Manual) Nucleated RBC % Seg Neutrophils # Seg Neutrophils # Man Lymphocytes # (Manual) Monocytes # (Manual) Eosinophils # (Manual) PT INR APTT POC ABG pH 7.263 L 7.288 L ABG pH POC ABG pCO2 POC ABG pO2 51 L 56 L ABG pO2 ABG HCO3 ABG O2 Saturation ABG Base Excess ABG Hemoglobin Oxyhemoglobin Sodium Potassium Chloride Carbon Dioxide BUN 76 H Creatinine 3.2 H Glucose 147 H POC Glucose Uric Acid Calcium 7.9 L Phosphorus Magnesium AST ALT Total Creatine Kinase CK-MB (CK-2) Troponin T NT-Pro-B Natriuret Pep Total Protein Albumin Triglycerides HDL Cholesterol Urine WBC (Auto) Urine Creatinine Urine Total Protein Vancomycin Trough 05/07/19 05/07/19 05/07/19 09:35 12:17 13:45 WBC 13.4 H RBC Hgb 11.6 L Hct MCV MCH 27 L MCHC 31 L RDW 17.5 H Lymph % (Auto) [place] % (Auto) Eos % (Auto) Lymph # [place] # Eos # Seg Neutrophils % Seg Neuts % (Manual) Lymphocytes % (Manual) Monocytes % (Manual) Eosinophils % (Manual) Nucleated RBC % Seg Neutrophils # Seg Neutrophils # Man Lymphocytes # (Manual) Monocytes # (Manual) Eosinophils # (Manual) PT INR APTT POC ABG pH ABG pH POC ABG pCO2 POC ABG pO2 ABG pO2 ABG HCO3 ABG O2 Saturation ABG Base Excess ABG Hemoglobin Oxyhemoglobin Sodium Potassium Chloride Carbon Dioxide BUN Creatinine Glucose POC Glucose 130 H Uric Acid 18.0 H Calcium Phosphorus Magnesium AST ALT Total Creatine Kinase CK-MB (CK-2) Troponin T NT-Pro-B Natriuret Pep Total Protein Albumin Triglycerides HDL Cholesterol Urine WBC (Auto) Urine Creatinine Urine Total Protein Vancomycin Trough 05/07/19 05/07/19 05/08/19 17:39 22:40 05:06 WBC RBC Hgb Hct MCV MCH MCHC RDW Lymph % (Auto) [place] % (Auto) Eos % (Auto) Lymph # [place] # Eos # Seg Neutrophils % Seg Neuts % (Manual) Lymphocytes % (Manual) Monocytes % (Manual) Eosinophils % (Manual) Nucleated RBC % Seg Neutrophils # Seg Neutrophils # Man Lymphocytes # (Manual) Monocytes # (Manual) Eosinophils # (Manual) PT INR APTT POC ABG pH ABG pH POC ABG pCO2 POC ABG pO2 ABG pO2 ABG HCO3 ABG O2 Saturation ABG Base Excess ABG Hemoglobin Oxyhemoglobin Sodium Potassium Chloride Carbon Dioxide BUN Creatinine Glucose POC Glucose 116 H 148 H Uric Acid Calcium Phosphorus Magnesium AST ALT Total Creatine Kinase CK-MB (CK-2) Troponin T NT-Pro-B Natriuret Pep Total Protein Albumin Triglycerides HDL Cholesterol Urine WBC (Auto) Urine Creatinine 292.8 H Urine Total Protein 269 H Vancomycin Trough 05/08/19 05/08/19 05/08/19 05:32 11:28 13:48 WBC RBC Hgb Hct MCV MCH MCHC RDW Lymph % (Auto) [place] % (Auto) Eos % (Auto) Lymph # [place] # Eos # Seg Neutrophils % Seg Neuts % (Manual) Lymphocytes % (Manual) Monocytes % (Manual) Eosinophils % (Manual) Nucleated RBC % Seg Neutrophils # Seg Neutrophils # Man Lymphocytes # (Manual) Monocytes # (Manual) Eosinophils # (Manual) PT INR APTT POC ABG pH ABG pH POC ABG pCO2 45.4 H POC ABG pO2 64 L ABG pO2 ABG HCO3 ABG O2 Saturation ABG Base Excess ABG Hemoglobin Oxyhemoglobin Sodium Potassium Chloride Carbon Dioxide BUN 73 H Creatinine 2.7 H Glucose 127 H POC Glucose 107 H Uric Acid Calcium 7.6 L Phosphorus Magnesium AST ALT Total Creatine Kinase CK-MB (CK-2) Troponin T NT-Pro-B Natriuret Pep Total Protein Albumin Triglycerides HDL Cholesterol Urine WBC (Auto) Urine Creatinine Urine Total Protein Vancomycin Trough 05/08/19 05/09/19 05/09/19 17:48 04:50 04:53 WBC RBC 3.07 L Hgb 8.5 L D Hct 29.3 L D MCV 96 H MCH MCHC 29 L RDW 18.1 H Lymph % (Auto) [place] % (Auto) Eos % (Auto) Lymph # [place] # Eos # Seg Neutrophils % Seg Neuts % (Manual) Lymphocytes % (Manual) Monocytes % (Manual) Eosinophils % (Manual) Nucleated RBC % Seg Neutrophils # Seg Neutrophils # Man Lymphocytes # (Manual) Monocytes # (Manual) Eosinophils # (Manual) PT INR APTT POC ABG pH 7.316 L ABG pH POC ABG pCO2 66.0 H POC ABG pO2 69 L ABG pO2 ABG HCO3 ABG O2 Saturation ABG Base Excess ABG Hemoglobin Oxyhemoglobin Sodium Potassium Chloride Carbon Dioxide BUN Creatinine Glucose POC Glucose 155 H Uric Acid Calcium Phosphorus Magnesium AST ALT Total Creatine Kinase CK-MB (CK-2) Troponin T NT-Pro-B Natriuret Pep Total Protein Albumin Triglycerides HDL Cholesterol Urine WBC (Auto) Urine Creatinine Urine Total Protein Vancomycin Trough 05/09/19 05/09/19 05/09/19 05:46 07:24 12:10 WBC RBC Hgb Hct MCV MCH MCHC RDW Lymph % (Auto) [place] % (Auto) Eos % (Auto) Lymph # [place] # Eos # Seg Neutrophils % Seg Neuts % (Manual) Lymphocytes % (Manual) Monocytes % (Manual) Eosinophils % (Manual) Nucleated RBC % Seg Neutrophils # Seg Neutrophils # Man Lymphocytes # (Manual) Monocytes # (Manual) Eosinophils # (Manual) PT INR APTT POC ABG pH ABG pH POC ABG pCO2 POC ABG pO2 ABG pO2 ABG HCO3 ABG O2 Saturation ABG Base Excess ABG Hemoglobin Oxyhemoglobin Sodium Potassium Chloride Carbon Dioxide BUN 73 H Creatinine 2.4 H Glucose 153 H POC Glucose 123 H 148 H Uric Acid Calcium 8.2 L Phosphorus Magnesium AST 45 H ALT Total Creatine Kinase CK-MB (CK-2) Troponin T NT-Pro-B Natriuret Pep Total Protein 6.0 L Albumin 1.9 L Triglycerides HDL Cholesterol Urine WBC (Auto) Urine Creatinine Urine Total Protein Vancomycin Trough 05/09/19 05/09/19 05/10/19 18:23 23:26 04:52 WBC RBC Hgb Hct MCV MCH MCHC RDW Lymph % (Auto) [place] % (Auto) Eos % (Auto) Lymph # [place] # Eos # Seg Neutrophils % Seg Neuts % (Manual) Lymphocytes % (Manual) Monocytes % (Manual) Eosinophils % (Manual) Nucleated RBC % Seg Neutrophils # Seg Neutrophils # Man Lymphocytes # (Manual) Monocytes # (Manual) Eosinophils # (Manual) PT INR APTT POC ABG pH 7.305 L ABG pH POC ABG pCO2 62.6 H POC ABG pO2 ABG pO2 ABG HCO3 ABG O2 Saturation ABG Base Excess ABG Hemoglobin Oxyhemoglobin Sodium Potassium Chloride Carbon Dioxide BUN Creatinine Glucose POC Glucose 147 H 121 H Uric Acid Calcium Phosphorus Magnesium AST ALT Total Creatine Kinase CK-MB (CK-2) Troponin T NT-Pro-B Natriuret Pep Total Protein Albumin Triglycerides HDL Cholesterol Urine WBC (Auto) Urine Creatinine Urine Total Protein Vancomycin Trough 05/10/19 05/10/19 05/10/19 05:00 05:00 05:50 WBC RBC Hgb 10.3 L Hct 33.7 L MCV MCH 27 L MCHC 31 L RDW 17.0 H Lymph % (Auto) [place] % (Auto) Eos % (Auto) Lymph # [place] # Eos # Seg Neutrophils % Seg Neuts % (Manual) Lymphocytes % (Manual) Monocytes % (Manual) Eosinophils % (Manual) Nucleated RBC % Seg Neutrophils # Seg Neutrophils # Man Lymphocytes # (Manual) Monocytes # (Manual) Eosinophils # (Manual) PT INR APTT POC ABG pH ABG pH POC ABG pCO2 POC ABG pO2 ABG pO2 ABG HCO3 ABG O2 Saturation ABG Base Excess ABG Hemoglobin Oxyhemoglobin Sodium 147 H Potassium Chloride Carbon Dioxide BUN 70 H Creatinine 2.6 H Glucose 155 H POC Glucose 158 H Uric Acid Calcium 8.2 L Phosphorus Magnesium AST ALT Total Creatine Kinase CK-MB (CK-2) Troponin T NT-Pro-B Natriuret Pep Total Protein 6.1 L Albumin 2.5 L Triglycerides HDL Cholesterol Urine WBC (Auto) Urine Creatinine Urine Total Protein Vancomycin Trough 05/10/19 05/11/19 05/11/19 13:14 07:26 11:40 WBC RBC Hgb Hct MCV MCH MCHC RDW Lymph % (Auto) [place] % (Auto) Eos % (Auto) Lymph # [place] # Eos # Seg Neutrophils % Seg Neuts % (Manual) Lymphocytes % (Manual) Monocytes % (Manual) Eosinophils % (Manual) Nucleated RBC % Seg Neutrophils # Seg Neutrophils # Man Lymphocytes # (Manual) Monocytes # (Manual) Eosinophils # (Manual) PT INR APTT POC ABG pH ABG pH POC ABG pCO2 48.0 H POC ABG pO2 58 L ABG pO2 ABG HCO3 ABG O2 Saturation ABG Base Excess ABG Hemoglobin Oxyhemoglobin Sodium 147 H Potassium Chloride 107.2 H Carbon Dioxide BUN 67 H Creatinine 2.6 H Glucose 121 H POC Glucose 159 H Uric Acid Calcium Phosphorus Magnesium AST ALT Total Creatine Kinase CK-MB (CK-2) Troponin T NT-Pro-B Natriuret Pep Total Protein Albumin Triglycerides HDL Cholesterol Urine WBC (Auto) Urine Creatinine Urine Total Protein Vancomycin Trough 05/11/19 05/11/19 05/12/19 18:13 23:46 04:40 WBC RBC Hgb Hct MCV MCH MCHC RDW Lymph % (Auto) [place] % (Auto) Eos % (Auto) Lymph # [place] # Eos # Seg Neutrophils % Seg Neuts % (Manual) Lymphocytes % (Manual) Monocytes % (Manual) Eosinophils % (Manual) Nucleated RBC % Seg Neutrophils # Seg Neutrophils # Man Lymphocytes # (Manual) Monocytes # (Manual) Eosinophils # (Manual) PT INR APTT POC ABG pH ABG pH 7.264 L POC ABG pCO2 POC ABG pO2 ABG pO2 66.8 L ABG HCO3 31.0 H ABG O2 Saturation 92.0 L ABG Base Excess ABG Hemoglobin 10.3 L Oxyhemoglobin 90.1 L Sodium Potassium Chloride Carbon Dioxide BUN Creatinine Glucose POC Glucose 120 H 121 H Uric Acid Calcium Phosphorus Magnesium AST ALT Total Creatine Kinase CK-MB (CK-2) Troponin T NT-Pro-B Natriuret Pep Total Protein Albumin Triglycerides HDL Cholesterol Urine WBC (Auto) Urine Creatinine Urine Total Protein Vancomycin Trough 05/12/19 05/12/19 05/12/19 04:45 04:45 11:14 WBC RBC Hgb 10.2 L Hct 32.4 L MCV MCH MCHC 31 L RDW 17.2 H Lymph % (Auto) [place] % (Auto) Eos % (Auto) Lymph # [place] # Eos # Seg Neutrophils % Seg Neuts % (Manual) Lymphocytes % (Manual) Monocytes % (Manual) Eosinophils % (Manual) Nucleated RBC % Seg Neutrophils # Seg Neutrophils # Man Lymphocytes # (Manual) Monocytes # (Manual) Eosinophils # (Manual) PT INR APTT POC ABG pH 7.284 L ABG pH POC ABG pCO2 67.8 H POC ABG pO2 ABG pO2 ABG HCO3 ABG O2 Saturation ABG Base Excess ABG Hemoglobin Oxyhemoglobin Sodium Potassium Chloride Carbon Dioxide BUN 63 H Creatinine 2.4 H Glucose 110 H POC Glucose Uric Acid Calcium Phosphorus Magnesium AST ALT Total Creatine Kinase CK-MB (CK-2) Troponin T NT-Pro-B Natriuret Pep Total Protein Albumin Triglycerides HDL Cholesterol Urine WBC (Auto) Urine Creatinine Urine Total Protein Vancomycin Trough 05/12/19 05/12/19 05/13/19 11:44 23:11 04:30 WBC RBC Hgb Hct MCV MCH MCHC RDW Lymph % (Auto) [place] % (Auto) Eos % (Auto) Lymph # [place] # Eos # Seg Neutrophils % Seg Neuts % (Manual) Lymphocytes % (Manual) Monocytes % (Manual) Eosinophils % (Manual) Nucleated RBC % Seg Neutrophils # Seg Neutrophils # Man Lymphocytes # (Manual) Monocytes # (Manual) Eosinophils # (Manual) PT INR APTT POC ABG pH ABG pH 7.288 L POC ABG pCO2 POC ABG pO2 ABG pO2 109.7 H ABG HCO3 30.9 H ABG O2 Saturation ABG Base Excess 3.2 H ABG Hemoglobin 9.6 L Oxyhemoglobin Sodium Potassium Chloride Carbon Dioxide BUN Creatinine Glucose POC Glucose 126 H 147 H Uric Acid Calcium Phosphorus Magnesium AST ALT Total Creatine Kinase CK-MB (CK-2) Troponin T NT-Pro-B Natriuret Pep Total Protein Albumin Triglycerides HDL Cholesterol Urine WBC (Auto) Urine Creatinine Urine Total Protein Vancomycin Trough 05/13/19 05/13/19 05/14/19 06:27 11:58 04:00 WBC RBC 3.16 L Hgb 9.3 L Hct 27.9 L MCV MCH MCHC RDW 17.1 H Lymph % (Auto) [place] % (Auto) Eos % (Auto) Lymph # [place] # Eos # Seg Neutrophils % Seg Neuts % (Manual) Lymphocytes % (Manual) Monocytes % (Manual) Eosinophils % (Manual) Nucleated RBC % Seg Neutrophils # Seg Neutrophils # Man Lymphocytes # (Manual) Monocytes # (Manual) Eosinophils # (Manual) PT INR APTT POC ABG pH ABG pH POC ABG pCO2 POC ABG pO2 ABG pO2 ABG HCO3 ABG O2 Saturation ABG Base Excess ABG Hemoglobin Oxyhemoglobin Sodium Potassium Chloride Carbon Dioxide BUN Creatinine Glucose POC Glucose 113 H 130 H Uric Acid Calcium Phosphorus Magnesium AST ALT Total Creatine Kinase CK-MB (CK-2) Troponin T NT-Pro-B Natriuret Pep Total Protein Albumin Triglycerides HDL Cholesterol Urine WBC (Auto) Urine Creatinine Urine Total Protein Vancomycin Trough 05/14/19 05/14/19 05/14/19 04:00 04:34 05:32 WBC RBC Hgb Hct MCV MCH MCHC RDW Lymph % (Auto) [place] % (Auto) Eos % (Auto) Lymph # [place] # Eos # Seg Neutrophils % Seg Neuts % (Manual) Lymphocytes % (Manual) Monocytes % (Manual) Eosinophils % (Manual) Nucleated RBC % Seg Neutrophils # Seg Neutrophils # Man Lymphocytes # (Manual) Monocytes # (Manual) Eosinophils # (Manual) PT INR APTT POC ABG pH 7.328 L ABG pH POC ABG pCO2 61.7 H POC ABG pO2 ABG pO2 ABG HCO3 ABG O2 Saturation ABG Base Excess ABG Hemoglobin Oxyhemoglobin Sodium 135 L D Potassium Chloride Carbon Dioxide BUN 57 H Creatinine 2.2 H Glucose 115 H POC Glucose 115 H Uric Acid Calcium 8.1 L Phosphorus Magnesium AST ALT Total Creatine Kinase CK-MB (CK-2) Troponin T NT-Pro-B Natriuret Pep Total Protein Albumin Triglycerides HDL Cholesterol Urine WBC (Auto) Urine Creatinine Urine Total Protein Vancomycin Trough 05/14/19 05/15/19 05/15/19 12:11 05:10 05:24 WBC RBC Hgb Hct MCV MCH MCHC RDW Lymph % (Auto) [place] % (Auto) Eos % (Auto) Lymph # [place] # Eos # Seg Neutrophils % Seg Neuts % (Manual) Lymphocytes % (Manual) Monocytes % (Manual) Eosinophils % (Manual) Nucleated RBC % Seg Neutrophils # Seg Neutrophils # Man Lymphocytes # (Manual) Monocytes # (Manual) Eosinophils # (Manual) PT INR APTT POC ABG pH ABG pH 7.342 L POC ABG pCO2 POC ABG pO2 ABG pO2 79.1 L ABG HCO3 28.2 H ABG O2 Saturation ABG Base Excess ABG Hemoglobin 7.0 L Oxyhemoglobin 94.4 L Sodium Potassium Chloride Carbon Dioxide BUN Creatinine Glucose POC Glucose 110 H 116 H Uric Acid Calcium Phosphorus Magnesium AST ALT Total Creatine Kinase CK-MB (CK-2) Troponin T NT-Pro-B Natriuret Pep Total Protein Albumin Triglycerides HDL Cholesterol Urine WBC (Auto) Urine Creatinine Urine Total Protein Vancomycin Trough 05/15/19 05/15/19 05/16/19 09:00 18:12 04:50 WBC RBC Hgb Hct MCV MCH MCHC RDW Lymph % (Auto) [place] % (Auto) Eos % (Auto) Lymph # [place] # Eos # Seg Neutrophils % Seg Neuts % (Manual) Lymphocytes % (Manual) Monocytes % (Manual) Eosinophils % (Manual) Nucleated RBC % Seg Neutrophils # Seg Neutrophils # Man Lymphocytes # (Manual) Monocytes # (Manual) Eosinophils # (Manual) PT INR APTT POC ABG pH ABG pH 7.250 L POC ABG pCO2 POC ABG pO2 ABG pO2 76.4 L ABG HCO3 ABG O2 Saturation 94.6 L ABG Base Excess -3.1 L ABG Hemoglobin 9.7 L Oxyhemoglobin 92.4 L Sodium Potassium Chloride Carbon Dioxide BUN Creatinine Glucose POC Glucose 110 H Uric Acid Calcium Phosphorus Magnesium AST ALT Total Creatine Kinase CK-MB (CK-2) Troponin T NT-Pro-B Natriuret Pep Total Protein Albumin Triglycerides HDL Cholesterol Urine WBC (Auto) Urine Creatinine Urine Total Protein Vancomycin Trough 20.5 H 05/16/19 05/16/19 05/17/19 05:50 05:50 04:20 WBC RBC 3.36 L 3.44 L Hgb 9.4 L 9.3 L Hct 29.1 L 29.7 L MCV MCH 27 L MCHC 31 L RDW 17.6 H 17.6 H Lymph % (Auto) [place] % (Auto) Eos % (Auto) Lymph # [place] # Eos # Seg Neutrophils % Seg Neuts % (Manual) 77.0 H Lymphocytes % (Manual) 5.0 L Monocytes % (Manual) Eosinophils % (Manual) 10.0 H Nucleated RBC % Seg Neutrophils # Seg Neutrophils # Man Lymphocytes # (Manual) 0.5 L Monocytes # (Manual) Eosinophils # (Manual) 0.9 H PT INR APTT POC ABG pH ABG pH POC ABG pCO2 POC ABG pO2 ABG pO2 ABG HCO3 ABG O2 Saturation ABG Base Excess ABG Hemoglobin Oxyhemoglobin Sodium Potassium Chloride Carbon Dioxide BUN 83 H Creatinine 4.4 H D Glucose 118 H POC Glucose Uric Acid Calcium Phosphorus Magnesium AST ALT Total Creatine Kinase CK-MB (CK-2) Troponin T NT-Pro-B Natriuret Pep Total Protein Albumin Triglycerides HDL Cholesterol Urine WBC (Auto) Urine Creatinine Urine Total Protein Vancomycin Trough 05/17/19 05/17/19 05/18/19 04:30 Unknown 01:50 WBC RBC 3.49 L Hgb 9.4 L Hct 30.0 L MCV MCH 27 L MCHC 31 L RDW 17.8 H Lymph % (Auto) 7.9 L [place] % (Auto) 15.4 H Eos % (Auto) 6.3 H Lymph # 0.7 L [place] # 1.4 H Eos # 0.6 H Seg Neutrophils % 70.2 H Seg Neuts % (Manual) Lymphocytes % (Manual) Monocytes % (Manual) Eosinophils % (Manual) Nucleated RBC % Seg Neutrophils # Seg Neutrophils # Man Lymphocytes # (Manual) Monocytes # (Manual) Eosinophils # (Manual) PT INR APTT POC ABG pH ABG pH 7.272 L POC ABG pCO2 POC ABG pO2 ABG pO2 75.7 L ABG HCO3 ABG O2 Saturation 93.8 L ABG Base Excess -3.0 L ABG Hemoglobin 7.8 L Oxyhemoglobin 91.6 L Sodium Potassium 5.2 H Chloride Carbon Dioxide BUN 96 H Creatinine 5.7 H Glucose 112 H POC Glucose Uric Acid Calcium Phosphorus Magnesium AST ALT Total Creatine Kinase CK-MB (CK-2) Troponin T NT-Pro-B Natriuret Pep Total Protein Albumin Triglycerides 173 H HDL Cholesterol Urine WBC (Auto) Urine Creatinine Urine Total Protein Vancomycin Trough 05/18/19 05/18/19 05/18/19 01:50 04:41 05:24 WBC RBC Hgb Hct MCV MCH MCHC RDW Lymph % (Auto) [place] % (Auto) Eos % (Auto) Lymph # [place] # Eos # Seg Neutrophils % Seg Neuts % (Manual) Lymphocytes % (Manual) Monocytes % (Manual) Eosinophils % (Manual) Nucleated RBC % Seg Neutrophils # Seg Neutrophils # Man Lymphocytes # (Manual) Monocytes # (Manual) Eosinophils # (Manual) PT INR APTT POC ABG pH 7.260 L ABG pH POC ABG pCO2 54.9 H POC ABG pO2 ABG pO2 ABG HCO3 ABG O2 Saturation ABG Base Excess ABG Hemoglobin Oxyhemoglobin Sodium Potassium 5.6 H Chloride Carbon Dioxide BUN 104 H Creatinine 6.6 H Glucose 107 H POC Glucose 106 H Uric Acid Calcium Phosphorus Magnesium AST ALT Total Creatine Kinase CK-MB (CK-2) Troponin T NT-Pro-B Natriuret Pep Total Protein Albumin Triglycerides HDL Cholesterol Urine WBC (Auto) Urine Creatinine Urine Total Protein Vancomycin Trough 05/18/19 05/18/19 05/19/19 11:34 23:26 04:06 WBC RBC 3.22 L Hgb 8.8 L Hct 27.3 L MCV MCH 27 L MCHC RDW 17.5 H Lymph % (Auto) [place] % (Auto) Eos % (Auto) Lymph # [place] # Eos # Seg Neutrophils % Seg Neuts % (Manual) 74.0 H Lymphocytes % (Manual) 4.0 L Monocytes % (Manual) 11.0 H Eosinophils % (Manual) 7.0 H Nucleated RBC % 1.0 H Seg Neutrophils # Seg Neutrophils # Man Lymphocytes # (Manual) 0.3 L Monocytes # (Manual) 0.9 H Eosinophils # (Manual) 0.6 H PT INR APTT POC ABG pH ABG pH POC ABG pCO2 POC ABG pO2 ABG pO2 ABG HCO3 ABG O2 Saturation ABG Base Excess ABG Hemoglobin Oxyhemoglobin Sodium Potassium Chloride Carbon Dioxide BUN Creatinine Glucose POC Glucose 152 H 112 H Uric Acid Calcium Phosphorus Magnesium AST ALT Total Creatine Kinase CK-MB (CK-2) Troponin T NT-Pro-B Natriuret Pep Total Protein Albumin Triglycerides HDL Cholesterol Urine WBC (Auto) Urine Creatinine Urine Total Protein Vancomycin Trough 05/19/19 05/19/19 05/20/19 04:06 06:00 04:00 WBC RBC 3.40 L Hgb 9.2 L Hct 28.6 L MCV MCH 27 L MCHC RDW 17.6 H Lymph % (Auto) [place] % (Auto) Eos % (Auto) Lymph # [place] # Eos # Seg Neutrophils % Seg Neuts % (Manual) Lymphocytes % (Manual) 11.0 L Monocytes % (Manual) Eosinophils % (Manual) 14.0 H Nucleated RBC % Seg Neutrophils # Seg Neutrophils # Man Lymphocytes # (Manual) 1.1 L Monocytes # (Manual) Eosinophils # (Manual) 1.4 H PT INR APTT POC ABG pH ABG pH 7.315 L POC ABG pCO2 POC ABG pO2 ABG pO2 ABG HCO3 ABG O2 Saturation ABG Base Excess ABG Hemoglobin 6.7 L Oxyhemoglobin 94.1 L Sodium Potassium 5.2 H Chloride Carbon Dioxide 21 L BUN 110 H Creatinine 7.2 H Glucose POC Glucose Uric Acid Calcium 8.3 L Phosphorus Magnesium AST ALT Total Creatine Kinase CK-MB (CK-2) Troponin T NT-Pro-B Natriuret Pep Total Protein Albumin Triglycerides HDL Cholesterol Urine WBC (Auto) Urine Creatinine Urine Total Protein Vancomycin Trough 05/20/19 05/20/19 05/20/19 04:00 05:48 12:00 WBC RBC Hgb Hct MCV MCH MCHC RDW Lymph % (Auto) [place] % (Auto) Eos % (Auto) Lymph # [place] # Eos # Seg Neutrophils % Seg Neuts % (Manual) Lymphocytes % (Manual) Monocytes % (Manual) Eosinophils % (Manual) Nucleated RBC % Seg Neutrophils # Seg Neutrophils # Man Lymphocytes # (Manual) Monocytes # (Manual) Eosinophils # (Manual) PT INR APTT POC ABG pH ABG pH 7.281 L POC ABG pCO2 POC ABG pO2 ABG pO2 78.7 L ABG HCO3 ABG O2 Saturation 94.5 L ABG Base Excess -3.0 L ABG Hemoglobin 9.9 L Oxyhemoglobin 92.5 L Sodium 136 L Potassium 5.7 H Chloride 96.3 L Carbon Dioxide BUN 125 H Creatinine 8.3 H Glucose 106 H POC Glucose Uric Acid Calcium Phosphorus Magnesium AST ALT Total Creatine Kinase CK-MB (CK-2) Troponin T NT-Pro-B Natriuret Pep Total Protein Albumin Triglycerides HDL Cholesterol Urine WBC (Auto) 26.0 H Urine Creatinine Urine Total Protein Vancomycin Trough 05/21/19 05/21/19 05/21/19 04:33 05:20 Unknown WBC RBC 3.38 L Hgb 9.1 L Hct 28.5 L MCV MCH 27 L MCHC RDW 17.4 H Lymph % (Auto) [place] % (Auto) Eos % (Auto) Lymph # [place] # Eos # Seg Neutrophils % Seg Neuts % (Manual) 71.0 H Lymphocytes % (Manual) 1.0 L Monocytes % (Manual) 11.0 H Eosinophils % (Manual) 6.0 H Nucleated RBC % Seg Neutrophils # Seg Neutrophils # Man Lymphocytes # (Manual) 0.1 L Monocytes # (Manual) 1.0 H Eosinophils # (Manual) 0.6 H PT INR APTT POC ABG pH 7.315 L ABG pH POC ABG pCO2 57.8 H POC ABG pO2 68 L ABG pO2 ABG HCO3 ABG O2 Saturation ABG Base Excess ABG Hemoglobin Oxyhemoglobin Sodium Potassium Chloride 96.3 L Carbon Dioxide BUN 102 H Creatinine 7.0 H Glucose 103 H POC Glucose Uric Acid Calcium Phosphorus Magnesium AST ALT Total Creatine Kinase CK-MB (CK-2) Troponin T NT-Pro-B Natriuret Pep Total Protein Albumin Triglycerides HDL Cholesterol Urine WBC (Auto) Urine Creatinine Urine Total Protein Vancomycin Trough 05/22/19 05/22/19 05/22/19 03:54 06:25 06:25 WBC RBC 3.22 L Hgb 8.6 L Hct 27.0 L MCV MCH 27 L MCHC RDW 17.5 H Lymph % (Auto) [place] % (Auto) 16.2 H Eos % (Auto) 10.8 H Lymph # [place] # 1.3 H Eos # 0.9 H Seg Neutrophils % Seg Neuts % (Manual) Lymphocytes % (Manual) 10.0 L Monocytes % (Manual) 13.0 H Eosinophils % (Manual) 8.0 H Nucleated RBC % Seg Neutrophils # Seg Neutrophils # Man Lymphocytes # (Manual) 0.9 L Monocytes # (Manual) 1.1 H Eosinophils # (Manual) 0.7 H PT INR APTT POC ABG pH 7.313 L ABG pH POC ABG pCO2 55.0 H POC ABG pO2 ABG pO2 ABG HCO3 ABG O2 Saturation ABG Base Excess ABG Hemoglobin Oxyhemoglobin Sodium 135 L Potassium Chloride 94.3 L Carbon Dioxide BUN 117 H Creatinine 7.8 H Glucose POC Glucose Uric Acid Calcium 8.2 L Phosphorus Magnesium AST ALT Total Creatine Kinase CK-MB (CK-2) Troponin T NT-Pro-B Natriuret Pep Total Protein Albumin Triglycerides HDL Cholesterol Urine WBC (Auto) Urine Creatinine Urine Total Protein Vancomycin Trough 05/23/19 05/24/19 05/24/19 05:21 05:00 05:00 WBC RBC 3.18 L Hgb 8.5 L Hct 26.7 L MCV MCH 27 L MCHC RDW 17.9 H Lymph % (Auto) [place] % (Auto) Eos % (Auto) Lymph # [place] # Eos # Seg Neutrophils % Seg Neuts % (Manual) Lymphocytes % (Manual) Monocytes % (Manual) Eosinophils % (Manual) Nucleated RBC % Seg Neutrophils # Seg Neutrophils # Man Lymphocytes # (Manual) Monocytes # (Manual) Eosinophils # (Manual) PT INR APTT POC ABG pH ABG pH POC ABG pCO2 49.7 H POC ABG pO2 73 L ABG pO2 ABG HCO3 ABG O2 Saturation ABG Base Excess ABG Hemoglobin Oxyhemoglobin Sodium Potassium Chloride 95.7 L Carbon Dioxide BUN 97 H Creatinine 6.5 H Glucose POC Glucose Uric Acid Calcium 8.0 L Phosphorus Magnesium AST ALT Total Creatine Kinase CK-MB (CK-2) Troponin T NT-Pro-B Natriuret Pep Total Protein Albumin Triglycerides HDL Cholesterol Urine WBC (Auto) Urine Creatinine Urine Total Protein Vancomycin Trough 05/24/19 05/25/19 05/25/19 06:17 04:22 15:45 WBC RBC 2.98 L Hgb 8.1 L Hct 24.9 L MCV MCH 27 L MCHC RDW 17.8 H Lymph % (Auto) [place] % (Auto) Eos % (Auto) Lymph # [place] # Eos # Seg Neutrophils % Seg Neuts % (Manual) Lymphocytes % (Manual) Monocytes % (Manual) Eosinophils % (Manual) Nucleated RBC % Seg Neutrophils # Seg Neutrophils # Man Lymphocytes # (Manual) Monocytes # (Manual) Eosinophils # (Manual) PT INR APTT POC ABG pH 7.330 L 7.313 L ABG pH POC ABG pCO2 52.5 H 51.1 H POC ABG pO2 77 L ABG pO2 ABG HCO3 ABG O2 Saturation ABG Base Excess ABG Hemoglobin Oxyhemoglobin Sodium Potassium Chloride Carbon Dioxide BUN Creatinine Glucose POC Glucose Uric Acid Calcium Phosphorus Magnesium AST ALT Total Creatine Kinase CK-MB (CK-2) Troponin T NT-Pro-B Natriuret Pep Total Protein Albumin Triglycerides HDL Cholesterol Urine WBC (Auto) Urine Creatinine Urine Total Protein Vancomycin Trough 05/25/19 05/26/19 05/26/19 15:45 04:13 05:00 WBC RBC 3.10 L Hgb 8.4 L Hct 26.0 L MCV MCH 27 L MCHC RDW 17.4 H Lymph % (Auto) [place] % (Auto) Eos % (Auto) Lymph # [place] # Eos # Seg Neutrophils % Seg Neuts % (Manual) Lymphocytes % (Manual) Monocytes % (Manual) Eosinophils % (Manual) Nucleated RBC % Seg Neutrophils # Seg Neutrophils # Man Lymphocytes # (Manual) Monocytes # (Manual) Eosinophils # (Manual) PT INR APTT POC ABG pH 7.295 L ABG pH POC ABG pCO2 56.5 H POC ABG pO2 63 L ABG pO2 ABG HCO3 ABG O2 Saturation ABG Base Excess ABG Hemoglobin Oxyhemoglobin Sodium 136 L Potassium Chloride 96.8 L Carbon Dioxide BUN 83 H Creatinine 5.9 H Glucose POC Glucose Uric Acid Calcium 7.6 L Phosphorus Magnesium AST ALT Total Creatine Kinase CK-MB (CK-2) Troponin T NT-Pro-B Natriuret Pep Total Protein Albumin Triglycerides HDL Cholesterol Urine WBC (Auto) Urine Creatinine Urine Total Protein Vancomycin Trough 05/26/19 05/27/19 05/28/19 05:00 04:48 04:47 WBC RBC Hgb Hct MCV MCH MCHC RDW Lymph % (Auto) [place] % (Auto) Eos % (Auto) Lymph # [place] # Eos # Seg Neutrophils % Seg Neuts % (Manual) Lymphocytes % (Manual) Monocytes % (Manual) Eosinophils % (Manual) Nucleated RBC % Seg Neutrophils # Seg Neutrophils # Man Lymphocytes # (Manual) Monocytes # (Manual) Eosinophils # (Manual) PT INR APTT POC ABG pH 7.323 L ABG pH 7.284 L POC ABG pCO2 56.2 H POC ABG pO2 ABG pO2 71.6 L ABG HCO3 ABG O2 Saturation 92.0 L ABG Base Excess ABG Hemoglobin 7.7 L Oxyhemoglobin 89.9 L Sodium 136 L Potassium Chloride 95.3 L Carbon Dioxide BUN 96 H Creatinine 6.5 H Glucose 108 H POC Glucose Uric Acid Calcium 7.6 L Phosphorus Magnesium AST ALT Total Creatine Kinase CK-MB (CK-2) Troponin T NT-Pro-B Natriuret Pep Total Protein Albumin Triglycerides HDL Cholesterol Urine WBC (Auto) Urine Creatinine Urine Total Protein Vancomycin Trough 05/28/19 05/29/19 05/29/19 12:30 12:47 23:44 WBC RBC Hgb Hct MCV MCH MCHC RDW Lymph % (Auto) [place] % (Auto) Eos % (Auto) Lymph # [place] # Eos # Seg Neutrophils % Seg Neuts % (Manual) Lymphocytes % (Manual) Monocytes % (Manual) Eosinophils % (Manual) Nucleated RBC % Seg Neutrophils # Seg Neutrophils # Man Lymphocytes # (Manual) Monocytes # (Manual) Eosinophils # (Manual) PT INR APTT POC ABG pH ABG pH POC ABG pCO2 POC ABG pO2 ABG pO2 ABG HCO3 ABG O2 Saturation ABG Base Excess ABG Hemoglobin Oxyhemoglobin Sodium 135 L Potassium Chloride 95.3 L Carbon Dioxide BUN 82 H Creatinine 6.0 H Glucose POC Glucose 136 H 159 H Uric Acid Calcium 7.5 L Phosphorus Magnesium AST ALT Total Creatine Kinase CK-MB (CK-2) Troponin T NT-Pro-B Natriuret Pep Total Protein Albumin Triglycerides HDL Cholesterol Urine WBC (Auto) Urine Creatinine Urine Total Protein Vancomycin Trough 05/30/19 05/30/19 05/30/19 04:30 05:38 12:00 WBC RBC 3.01 L Hgb 8.2 L Hct 25.3 L MCV MCH 27 L MCHC RDW 17.5 H Lymph % (Auto) [place] % (Auto) Eos % (Auto) Lymph # [place] # Eos # Seg Neutrophils % Seg Neuts % (Manual) 80.0 H Lymphocytes % (Manual) 10.0 L Monocytes % (Manual) Eosinophils % (Manual) Nucleated RBC % Seg Neutrophils # Seg Neutrophils # Man 8.0 H Lymphocytes # (Manual) 1.0 L Monocytes # (Manual) Eosinophils # (Manual) PT INR APTT POC ABG pH ABG pH POC ABG pCO2 POC ABG pO2 73 L ABG pO2 ABG HCO3 ABG O2 Saturation ABG Base Excess ABG Hemoglobin Oxyhemoglobin Sodium Potassium Chloride Carbon Dioxide BUN Creatinine Glucose POC Glucose 166 H Uric Acid Calcium Phosphorus Magnesium AST ALT Total Creatine Kinase CK-MB (CK-2) Troponin T NT-Pro-B Natriuret Pep Total Protein Albumin Triglycerides HDL Cholesterol Urine WBC (Auto) Urine Creatinine Urine Total Protein Vancomycin Trough 05/30/19 05/31/19 05/31/19 23:45 04:07 13:04 WBC 14.3 H RBC 2.88 L Hgb 7.7 L Hct 23.9 L MCV 83 L MCH 27 L MCHC RDW 17.8 H Lymph % (Auto) [place] % (Auto) Eos % (Auto) Lymph # [place] # Eos # Seg Neutrophils % Seg Neuts % (Manual) 83.0 H Lymphocytes % (Manual) 11.0 L Monocytes % (Manual) Eosinophils % (Manual) Nucleated RBC % Seg Neutrophils # Seg Neutrophils # Man 11.9 H Lymphocytes # (Manual) Monocytes # (Manual) 0.9 H Eosinophils # (Manual) PT INR APTT POC ABG pH ABG pH POC ABG pCO2 47.4 H POC ABG pO2 ABG pO2 ABG HCO3 ABG O2 Saturation ABG Base Excess ABG Hemoglobin Oxyhemoglobin Sodium Potassium Chloride Carbon Dioxide BUN Creatinine Glucose POC Glucose 209 H Uric Acid Calcium Phosphorus Magnesium AST ALT Total Creatine Kinase CK-MB (CK-2) Troponin T NT-Pro-B Natriuret Pep Total Protein Albumin Triglycerides HDL Cholesterol Urine WBC (Auto) Urine Creatinine Urine Total Protein Vancomycin Trough 05/31/19 05/31/19 06/01/19 13:04 16:42 00:15 WBC RBC Hgb Hct MCV MCH MCHC RDW Lymph % (Auto) [place] % (Auto) Eos % (Auto) Lymph # [place] # Eos # Seg Neutrophils % Seg Neuts % (Manual) Lymphocytes % (Manual) Monocytes % (Manual) Eosinophils % (Manual) Nucleated RBC % Seg Neutrophils # Seg Neutrophils # Man Lymphocytes # (Manual) Monocytes # (Manual) Eosinophils # (Manual) PT INR APTT POC ABG pH ABG pH POC ABG pCO2 POC ABG pO2 ABG pO2 ABG HCO3 ABG O2 Saturation ABG Base Excess ABG Hemoglobin Oxyhemoglobin Sodium 129 L Potassium Chloride 88.6 L Carbon Dioxide 19 L BUN 117 H Creatinine 6.7 H Glucose 205 H POC Glucose 228 H 223 H Uric Acid Calcium 7.4 L Phosphorus 7.40 H Magnesium AST 58 H ALT 149 H Total Creatine Kinase CK-MB (CK-2) Troponin T NT-Pro-B Natriuret Pep Total Protein 6.0 L Albumin 2.5 L Triglycerides HDL Cholesterol Urine WBC (Auto) Urine Creatinine Urine Total Protein Vancomycin Trough 06/01/19 06/01/19 06/01/19 04:33 05:27 12:31 WBC RBC Hgb Hct MCV MCH MCHC RDW Lymph % (Auto) [place] % (Auto) Eos % (Auto) Lymph # [place] # Eos # Seg Neutrophils % Seg Neuts % (Manual) Lymphocytes % (Manual) Monocytes % (Manual) Eosinophils % (Manual) Nucleated RBC % Seg Neutrophils # Seg Neutrophils # Man Lymphocytes # (Manual) Monocytes # (Manual) Eosinophils # (Manual) PT INR APTT POC ABG pH ABG pH POC ABG pCO2 POC ABG pO2 ABG pO2 56.9 L ABG HCO3 ABG O2 Saturation 85.9 L ABG Base Excess ABG Hemoglobin 8.1 L Oxyhemoglobin 83.6 L Sodium Potassium Chloride Carbon Dioxide BUN Creatinine Glucose POC Glucose 183 H 217 H Uric Acid Calcium Phosphorus Magnesium AST ALT Total Creatine Kinase CK-MB (CK-2) Troponin T NT-Pro-B Natriuret Pep Total Protein Albumin Triglycerides HDL Cholesterol Urine WBC (Auto) Urine Creatinine Urine Total Protein Vancomycin Trough 06/01/19 06/02/19 06/02/19 18:20 00:00 05:33 WBC RBC Hgb Hct MCV MCH MCHC RDW Lymph % (Auto) [place] % (Auto) Eos % (Auto) Lymph # [place] # Eos # Seg Neutrophils % Seg Neuts % (Manual) Lymphocytes % (Manual) Monocytes % (Manual) Eosinophils % (Manual) Nucleated RBC % Seg Neutrophils # Seg Neutrophils # Man Lymphocytes # (Manual) Monocytes # (Manual) Eosinophils # (Manual) PT INR APTT POC ABG pH ABG pH POC ABG pCO2 POC ABG pO2 ABG pO2 ABG HCO3 ABG O2 Saturation ABG Base Excess ABG Hemoglobin Oxyhemoglobin Sodium Potassium Chloride Carbon Dioxide BUN Creatinine Glucose POC Glucose 265 H 279 H 259 H Uric Acid Calcium Phosphorus Magnesium AST ALT Total Creatine Kinase CK-MB (CK-2) Troponin T NT-Pro-B Natriuret Pep Total Protein Albumin Triglycerides HDL Cholesterol Urine WBC (Auto) Urine Creatinine Urine Total Protein Vancomycin Trough 06/02/19 06/02/19 06/02/19 11:06 11:06 11:42 WBC 13.1 H RBC 2.92 L Hgb 7.9 L Hct 24.4 L MCV MCH 27 L MCHC RDW 17.4 H Lymph % (Auto) [place] % (Auto) Eos % (Auto) Lymph # [place] # Eos # Seg Neutrophils % Seg Neuts % (Manual) 78.0 H Lymphocytes % (Manual) 12.0 L Monocytes % (Manual) 10.0 H Eosinophils % (Manual) Nucleated RBC % Seg Neutrophils # Seg Neutrophils # Man 10.2 H Lymphocytes # (Manual) Monocytes # (Manual) 1.3 H Eosinophils # (Manual) PT INR APTT POC ABG pH ABG pH POC ABG pCO2 POC ABG pO2 ABG pO2 ABG HCO3 ABG O2 Saturation ABG Base Excess ABG Hemoglobin Oxyhemoglobin Sodium 135 L Potassium Chloride 94.7 L Carbon Dioxide 21 L BUN 107 H Creatinine 4.5 H Glucose 286 H POC Glucose 263 H Uric Acid Calcium 7.9 L Phosphorus 6.30 H Magnesium AST ALT 104 H Total Creatine Kinase CK-MB (CK-2) Troponin T NT-Pro-B Natriuret Pep Total Protein 6.0 L Albumin 2.7 L Triglycerides HDL Cholesterol Urine WBC (Auto) Urine Creatinine Urine Total Protein Vancomycin Trough 06/02/19 06/02/19 06/03/19 18:17 23:55 05:30 WBC RBC Hgb Hct MCV MCH MCHC RDW Lymph % (Auto) [place] % (Auto) Eos % (Auto) Lymph # [place] # Eos # Seg Neutrophils % Seg Neuts % (Manual) Lymphocytes % (Manual) Monocytes % (Manual) Eosinophils % (Manual) Nucleated RBC % Seg Neutrophils # Seg Neutrophils # Man Lymphocytes # (Manual) Monocytes # (Manual) Eosinophils # (Manual) PT INR APTT POC ABG pH ABG pH POC ABG pCO2 POC ABG pO2 ABG pO2 ABG HCO3 ABG O2 Saturation ABG Base Excess ABG Hemoglobin Oxyhemoglobin Sodium Potassium Chloride 95.1 L Carbon Dioxide 21 L BUN 119 H Creatinine 4.1 H Glucose 330 H POC Glucose 276 H 244 H Uric Acid Calcium 8.1 L Phosphorus Magnesium AST ALT 98 H Total Creatine Kinase CK-MB (CK-2) Troponin T NT-Pro-B Natriuret Pep Total Protein 5.8 L Albumin 2.8 L Triglycerides HDL Cholesterol Urine WBC (Auto) Urine Creatinine Urine Total Protein Vancomycin Trough 06/03/19 06/03/19 06/03/19 05:30 06:04 09:42 WBC 12.8 H RBC 3.01 L Hgb 8.2 L Hct 25.4 L MCV MCH 27 L MCHC RDW 17.5 H Lymph % (Auto) [place] % (Auto) Eos % (Auto) Lymph # [place] # Eos # Seg Neutrophils % Seg Neuts % (Manual) 78.0 H Lymphocytes % (Manual) 10.0 L Monocytes % (Manual) 12.0 H Eosinophils % (Manual) Nucleated RBC % Seg Neutrophils # Seg Neutrophils # Man 10.0 H Lymphocytes # (Manual) Monocytes # (Manual) 1.5 H Eosinophils # (Manual) PT INR APTT POC ABG pH ABG pH POC ABG pCO2 POC ABG pO2 ABG pO2 ABG HCO3 ABG O2 Saturation ABG Base Excess ABG Hemoglobin Oxyhemoglobin Sodium Potassium Chloride Carbon Dioxide BUN 106 H Creatinine Glucose POC Glucose 254 H Uric Acid Calcium Phosphorus Magnesium AST ALT Total Creatine Kinase CK-MB (CK-2) Troponin T NT-Pro-B Natriuret Pep Total Protein Albumin Triglycerides HDL Cholesterol Urine WBC (Auto) Urine Creatinine Urine Total Protein Vancomycin Trough 06/03/19 06/03/19 06/03/19 12:52 17:25 23:37 WBC RBC Hgb Hct MCV MCH MCHC RDW Lymph % (Auto) [place] % (Auto) Eos % (Auto) Lymph # [place] # Eos # Seg Neutrophils % Seg Neuts % (Manual) Lymphocytes % (Manual) Monocytes % (Manual) Eosinophils % (Manual) Nucleated RBC % Seg Neutrophils # Seg Neutrophils # Man Lymphocytes # (Manual) Monocytes # (Manual) Eosinophils # (Manual) PT INR APTT POC ABG pH ABG pH POC ABG pCO2 POC ABG pO2 ABG pO2 ABG HCO3 ABG O2 Saturation ABG Base Excess ABG Hemoglobin Oxyhemoglobin Sodium Potassium Chloride Carbon Dioxide BUN Creatinine Glucose POC Glucose 274 H 285 H 310 H Uric Acid Calcium Phosphorus Magnesium AST ALT Total Creatine Kinase CK-MB (CK-2) Troponin T NT-Pro-B Natriuret Pep Total Protein Albumin Triglycerides HDL Cholesterol Urine WBC (Auto) Urine Creatinine Urine Total Protein Vancomycin Trough 06/04/19 06/04/19 06/04/19 04:57 05:03 11:50 WBC RBC Hgb Hct MCV MCH MCHC RDW Lymph % (Auto) [place] % (Auto) Eos % (Auto) Lymph # [place] # Eos # Seg Neutrophils % Seg Neuts % (Manual) Lymphocytes % (Manual) Monocytes % (Manual) Eosinophils % (Manual) Nucleated RBC % Seg Neutrophils # Seg Neutrophils # Man Lymphocytes # (Manual) Monocytes # (Manual) Eosinophils # (Manual) PT INR APTT POC ABG pH 7.488 H ABG pH POC ABG pCO2 POC ABG pO2 ABG pO2 ABG HCO3 ABG O2 Saturation ABG Base Excess ABG Hemoglobin Oxyhemoglobin Sodium Potassium Chloride Carbon Dioxide BUN Creatinine Glucose POC Glucose 275 H 279 H Uric Acid Calcium Phosphorus Magnesium AST ALT Total Creatine Kinase CK-MB (CK-2) Troponin T NT-Pro-B Natriuret Pep Total Protein Albumin Triglycerides HDL Cholesterol Urine WBC (Auto) Urine Creatinine Urine Total Protein Vancomycin Trough 06/04/19 06/04/19 06/04/19 18:32 22:03 23:55 WBC RBC Hgb Hct MCV MCH MCHC RDW Lymph % (Auto) [place] % (Auto) Eos % (Auto) Lymph # [place] # Eos # Seg Neutrophils % Seg Neuts % (Manual) Lymphocytes % (Manual) Monocytes % (Manual) Eosinophils % (Manual) Nucleated RBC % Seg Neutrophils # Seg Neutrophils # Man Lymphocytes # (Manual) Monocytes # (Manual) Eosinophils # (Manual) PT INR APTT POC ABG pH ABG pH POC ABG pCO2 POC ABG pO2 ABG pO2 ABG HCO3 ABG O2 Saturation ABG Base Excess ABG Hemoglobin Oxyhemoglobin Sodium Potassium Chloride Carbon Dioxide BUN Creatinine Glucose POC Glucose 267 H 307 H 292 H Uric Acid Calcium Phosphorus Magnesium AST ALT Total Creatine Kinase CK-MB (CK-2) Troponin T NT-Pro-B Natriuret Pep Total Protein Albumin Triglycerides HDL Cholesterol Urine WBC (Auto) Urine Creatinine Urine Total Protein Vancomycin Trough 06/05/19 06/05/19 06/05/19 03:52 06:41 12:29 WBC RBC Hgb Hct MCV MCH MCHC RDW Lymph % (Auto) [place] % (Auto) Eos % (Auto) Lymph # [place] # Eos # Seg Neutrophils % Seg Neuts % (Manual) Lymphocytes % (Manual) Monocytes % (Manual) Eosinophils % (Manual) Nucleated RBC % Seg Neutrophils # Seg Neutrophils # Man Lymphocytes # (Manual) Monocytes # (Manual) Eosinophils # (Manual) PT INR APTT POC ABG pH 7.462 H ABG pH POC ABG pCO2 POC ABG pO2 ABG pO2 ABG HCO3 ABG O2 Saturation ABG Base Excess ABG Hemoglobin Oxyhemoglobin Sodium Potassium Chloride Carbon Dioxide BUN Creatinine Glucose POC Glucose 369 H 265 H Uric Acid Calcium Phosphorus Magnesium AST ALT Total Creatine Kinase CK-MB (CK-2) Troponin T NT-Pro-B Natriuret Pep Total Protein Albumin Triglycerides HDL Cholesterol Urine WBC (Auto) Urine Creatinine Urine Total Protein Vancomycin Trough 06/05/19 06/05/19 06/05/19 18:20 21:42 23:21 WBC RBC Hgb Hct MCV MCH MCHC RDW Lymph % (Auto) [place] % (Auto) Eos % (Auto) Lymph # [place] # Eos # Seg Neutrophils % Seg Neuts % (Manual) Lymphocytes % (Manual) Monocytes % (Manual) Eosinophils % (Manual) Nucleated RBC % Seg Neutrophils # Seg Neutrophils # Man Lymphocytes # (Manual) Monocytes # (Manual) Eosinophils # (Manual) PT INR APTT POC ABG pH ABG pH POC ABG pCO2 POC ABG pO2 ABG pO2 ABG HCO3 ABG O2 Saturation ABG Base Excess ABG Hemoglobin Oxyhemoglobin Sodium Potassium Chloride Carbon Dioxide BUN Creatinine Glucose POC Glucose 249 H 246 H 274 H Uric Acid Calcium Phosphorus Magnesium AST ALT Total Creatine Kinase CK-MB (CK-2) Troponin T NT-Pro-B Natriuret Pep Total Protein Albumin Triglycerides HDL Cholesterol Urine WBC (Auto) Urine Creatinine Urine Total Protein Vancomycin Trough 06/06/19 06/06/19 06/06/19 04:00 05:49 11:34 WBC 18.1 H RBC 3.53 L Hgb 9.5 L Hct 30.3 L MCV MCH 27 L MCHC 31 L RDW 19.5 H Lymph % (Auto) [place] % (Auto) Eos % (Auto) Lymph # [place] # Eos # Seg Neutrophils % Seg Neuts % (Manual) 87.0 H Lymphocytes % (Manual) 3.0 L Monocytes % (Manual) 8.0 H Eosinophils % (Manual) Nucleated RBC % Seg Neutrophils # Seg Neutrophils # Man 15.7 H Lymphocytes # (Manual) 0.5 L Monocytes # (Manual) 1.4 H Eosinophils # (Manual) PT INR APTT POC ABG pH ABG pH 7.472 H POC ABG pCO2 POC ABG pO2 ABG pO2 76.4 L ABG HCO3 28.1 H ABG O2 Saturation ABG Base Excess 4.3 H ABG Hemoglobin 12.5 L Oxyhemoglobin 93.8 L Sodium Potassium Chloride Carbon Dioxide BUN Creatinine Glucose POC Glucose 340 H Uric Acid Calcium Phosphorus Magnesium AST ALT Total Creatine Kinase CK-MB (CK-2) Troponin T NT-Pro-B Natriuret Pep Total Protein Albumin Triglycerides HDL Cholesterol Urine WBC (Auto) Urine Creatinine Urine Total Protein Vancomycin Trough 06/06/19 06/06/19 06/06/19 11:34 12:11 18:10 WBC RBC Hgb Hct MCV MCH MCHC RDW Lymph % (Auto) [place] % (Auto) Eos % (Auto) Lymph # [place] # Eos # Seg Neutrophils % Seg Neuts % (Manual) Lymphocytes % (Manual) Monocytes % (Manual) Eosinophils % (Manual) Nucleated RBC % Seg Neutrophils # Seg Neutrophils # Man Lymphocytes # (Manual) Monocytes # (Manual) Eosinophils # (Manual) PT INR APTT POC ABG pH ABG pH POC ABG pCO2 POC ABG pO2 ABG pO2 ABG HCO3 ABG O2 Saturation ABG Base Excess ABG Hemoglobin Oxyhemoglobin Sodium Potassium Chloride Carbon Dioxide BUN 70 H Creatinine Glucose 310 H POC Glucose 283 H 301 H Uric Acid Calcium 8.3 L Phosphorus 4.60 H Magnesium AST ALT 75 H Total Creatine Kinase CK-MB (CK-2) Troponin T NT-Pro-B Natriuret Pep Total Protein 5.6 L Albumin 2.9 L Triglycerides HDL Cholesterol Urine WBC (Auto) Urine Creatinine Urine Total Protein Vancomycin Trough 06/06/19 06/06/19 06/07/19 22:21 23:16 04:30 WBC RBC Hgb Hct MCV MCH MCHC RDW Lymph % (Auto) [place] % (Auto) Eos % (Auto) Lymph # [place] # Eos # Seg Neutrophils % Seg Neuts % (Manual) Lymphocytes % (Manual) Monocytes % (Manual) Eosinophils % (Manual) Nucleated RBC % Seg Neutrophils # Seg Neutrophils # Man Lymphocytes # (Manual) Monocytes # (Manual) Eosinophils # (Manual) PT INR APTT POC ABG pH ABG pH 7.480 H POC ABG pCO2 POC ABG pO2 ABG pO2 77.0 L ABG HCO3 27.2 H ABG O2 Saturation ABG Base Excess 3.5 H ABG Hemoglobin 7.1 L Oxyhemoglobin 94.2 L Sodium Potassium Chloride Carbon Dioxide BUN Creatinine Glucose POC Glucose 289 H 343 H Uric Acid Calcium Phosphorus Magnesium AST ALT Total Creatine Kinase CK-MB (CK-2) Troponin T NT-Pro-B Natriuret Pep Total Protein Albumin Triglycerides HDL Cholesterol Urine WBC (Auto) Urine Creatinine Urine Total Protein Vancomycin Trough 06/07/19 06/07/19 06/07/19 05:15 12:52 18:41 WBC RBC Hgb Hct MCV MCH MCHC RDW Lymph % (Auto) [place] % (Auto) Eos % (Auto) Lymph # [place] # Eos # Seg Neutrophils % Seg Neuts % (Manual) Lymphocytes % (Manual) Monocytes % (Manual) Eosinophils % (Manual) Nucleated RBC % Seg Neutrophils # Seg Neutrophils # Man Lymphocytes # (Manual) Monocytes # (Manual) Eosinophils # (Manual) PT INR APTT POC ABG pH ABG pH POC ABG pCO2 POC ABG pO2 ABG pO2 ABG HCO3 ABG O2 Saturation ABG Base Excess ABG Hemoglobin Oxyhemoglobin Sodium Potassium Chloride Carbon Dioxide BUN Creatinine Glucose POC Glucose 307 H 226 H 187 H Uric Acid Calcium Phosphorus Magnesium AST ALT Total Creatine Kinase CK-MB (CK-2) Troponin T NT-Pro-B Natriuret Pep Total Protein Albumin Triglycerides HDL Cholesterol Urine WBC (Auto) Urine Creatinine Urine Total Protein Vancomycin Trough 06/07/19 06/07/19 06/08/19 22:54 23:46 04:20 WBC 16.0 H RBC Hgb 10.0 L Hct 32.1 L MCV MCH 27 L MCHC 31 L RDW 19.4 H Lymph % (Auto) [place] % (Auto) Eos % (Auto) Lymph # [place] # Eos # Seg Neutrophils % Seg Neuts % (Manual) 87.0 H Lymphocytes % (Manual) 7.0 L Monocytes % (Manual) Eosinophils % (Manual) Nucleated RBC % Seg Neutrophils # Seg Neutrophils # Man 13.9 H Lymphocytes # (Manual) 1.1 L Monocytes # (Manual) 1.0 H Eosinophils # (Manual) PT INR APTT POC ABG pH ABG pH POC ABG pCO2 POC ABG pO2 ABG pO2 ABG HCO3 ABG O2 Saturation ABG Base Excess ABG Hemoglobin Oxyhemoglobin Sodium Potassium Chloride Carbon Dioxide BUN Creatinine Glucose POC Glucose 199 H 172 H Uric Acid Calcium Phosphorus Magnesium AST ALT Total Creatine Kinase CK-MB (CK-2) Troponin T NT-Pro-B Natriuret Pep Total Protein Albumin Triglycerides HDL Cholesterol Urine WBC (Auto) Urine Creatinine Urine Total Protein Vancomycin Trough 06/08/19 06/08/19 06/08/19 04:20 05:15 11:31 WBC RBC Hgb Hct MCV MCH MCHC RDW Lymph % (Auto) [place] % (Auto) Eos % (Auto) Lymph # [place] # Eos # Seg Neutrophils % Seg Neuts % (Manual) Lymphocytes % (Manual) Monocytes % (Manual) Eosinophils % (Manual) Nucleated RBC % Seg Neutrophils # Seg Neutrophils # Man Lymphocytes # (Manual) Monocytes # (Manual) Eosinophils # (Manual) PT INR APTT POC ABG pH ABG pH POC ABG pCO2 POC ABG pO2 ABG pO2 ABG HCO3 ABG O2 Saturation ABG Base Excess ABG Hemoglobin Oxyhemoglobin Sodium 146 H D Potassium Chloride Carbon Dioxide BUN 77 H Creatinine Glucose 205 H POC Glucose 209 H 181 H Uric Acid Calcium Phosphorus Magnesium AST ALT 66 H Total Creatine Kinase CK-MB (CK-2) Troponin T NT-Pro-B Natriuret Pep Total Protein 5.5 L Albumin 2.9 L Triglycerides HDL Cholesterol Urine WBC (Auto) Urine Creatinine Urine Total Protein Vancomycin Trough 06/08/19 06/08/19 06/09/19 17:28 23:24 05:20 WBC RBC Hgb Hct MCV MCH MCHC RDW Lymph % (Auto) [place] % (Auto) Eos % (Auto) Lymph # [place] # Eos # Seg Neutrophils % Seg Neuts % (Manual) Lymphocytes % (Manual) Monocytes % (Manual) Eosinophils % (Manual) Nucleated RBC % Seg Neutrophils # Seg Neutrophils # Man Lymphocytes # (Manual) Monocytes # (Manual) Eosinophils # (Manual) PT INR APTT POC ABG pH ABG pH POC ABG pCO2 POC ABG pO2 ABG pO2 ABG HCO3 ABG O2 Saturation ABG Base Excess ABG Hemoglobin Oxyhemoglobin Sodium Potassium Chloride Carbon Dioxide BUN Creatinine Glucose POC Glucose 215 H 200 H 173 H Uric Acid Calcium Phosphorus Magnesium AST ALT Total Creatine Kinase CK-MB (CK-2) Troponin T NT-Pro-B Natriuret Pep Total Protein Albumin Triglycerides HDL Cholesterol Urine WBC (Auto) Urine Creatinine Urine Total Protein Vancomycin Trough 06/09/19 06/09/19 06/09/19 12:07 18:32 23:51 WBC RBC Hgb Hct MCV MCH MCHC RDW Lymph % (Auto) [place] % (Auto) Eos % (Auto) Lymph # [place] # Eos # Seg Neutrophils % Seg Neuts % (Manual) Lymphocytes % (Manual) Monocytes % (Manual) Eosinophils % (Manual) Nucleated RBC % Seg Neutrophils # Seg Neutrophils # Man Lymphocytes # (Manual) Monocytes # (Manual) Eosinophils # (Manual) PT INR APTT POC ABG pH ABG pH POC ABG pCO2 POC ABG pO2 ABG pO2 ABG HCO3 ABG O2 Saturation ABG Base Excess ABG Hemoglobin Oxyhemoglobin Sodium Potassium Chloride Carbon Dioxide BUN Creatinine Glucose POC Glucose 117 H 169 H 147 H Uric Acid Calcium Phosphorus Magnesium AST ALT Total Creatine Kinase CK-MB (CK-2) Troponin T NT-Pro-B Natriuret Pep Total Protein Albumin Triglycerides HDL Cholesterol Urine WBC (Auto) Urine Creatinine Urine Total Protein Vancomycin Trough 06/10/19 06/10/19 06/10/19 05:45 05:45 06:01 WBC 14.6 H RBC Hgb 9.9 L Hct 32.2 L MCV MCH 27 L MCHC 31 L RDW 19.6 H Lymph % (Auto) 10.5 L [place] % (Auto) 9.4 H Eos % (Auto) Lymph # [place] # 1.4 H Eos # Seg Neutrophils % 79.9 H Seg Neuts % (Manual) Lymphocytes % (Manual) Monocytes % (Manual) Eosinophils % (Manual) Nucleated RBC % Seg Neutrophils # 11.7 H Seg Neutrophils # Man Lymphocytes # (Manual) Monocytes # (Manual) Eosinophils # (Manual) PT INR APTT POC ABG pH ABG pH POC ABG pCO2 POC ABG pO2 ABG pO2 ABG HCO3 ABG O2 Saturation ABG Base Excess ABG Hemoglobin Oxyhemoglobin Sodium 150 H Potassium Chloride 108.3 H Carbon Dioxide BUN 49 H Creatinine Glucose 172 H POC Glucose 165 H Uric Acid Calcium Phosphorus Magnesium 1.40 L AST ALT Total Creatine Kinase CK-MB (CK-2) Troponin T NT-Pro-B Natriuret Pep Total Protein Albumin Triglycerides HDL Cholesterol Urine WBC (Auto) Urine Creatinine Urine Total Protein Vancomycin Trough 06/10/19 06/10/19 06/11/19 12:11 18:30 08:34 WBC RBC Hgb Hct MCV MCH MCHC RDW Lymph % (Auto) [place] % (Auto) Eos % (Auto) Lymph # [place] # Eos # Seg Neutrophils % Seg Neuts % (Manual) Lymphocytes % (Manual) Monocytes % (Manual) Eosinophils % (Manual) Nucleated RBC % Seg Neutrophils # Seg Neutrophils # Man Lymphocytes # (Manual) Monocytes # (Manual) Eosinophils # (Manual) PT INR APTT POC ABG pH ABG pH POC ABG pCO2 POC ABG pO2 ABG pO2 ABG HCO3 ABG O2 Saturation ABG Base Excess ABG Hemoglobin Oxyhemoglobin Sodium 154 H Potassium Chloride 111.6 H Carbon Dioxide BUN 41 H Creatinine Glucose 147 H POC Glucose 150 H 154 H Uric Acid Calcium Phosphorus Magnesium AST ALT Total Creatine Kinase CK-MB (CK-2) Troponin T NT-Pro-B Natriuret Pep Total Protein Albumin Triglycerides HDL Cholesterol Urine WBC (Auto) Urine Creatinine Urine Total Protein Vancomycin Trough
--- NOTE | 2019-06-11 14:31 | Progress Note ---
Assessment and Plan Assessment and plan: 34-year-old man with morbid obesity was brought to the hospital for shortness of breath and insomnia. He was found to have severe hypoxia and bradycardia who then became pulseless, he was cyanotic and he was intubated after receiving CPR with 2 rounds of epinephrine. Acute respiratory failure with hypoxia on mechanical ventilator greater than 96 hours -Obesity hypoventilation Patient extubated 06/07 after being on the ventilator for 37 days, continue NIV at bedtime. Continue oxygen supplement in the daytime. Status post cardiac arrest anoxic/ischemic brain injury Patient's mentation is improved today., EEG was negative for seizures and neuro logy consult appreciated. Severe malnutrition Dysphasia Continue speech therapy, continue scopolamine as patient had copious secretions, suctioning as needed Acute kidney injury due to ATN Dialysis now put on hold, kidney function improving Nephrology input appreciated, Morbid obesity; will need weight loss program upon discharge DVT prophylaxis; Lovenox Disposition; does not have a pay source, therefore home with home health services History Interval history: No fevers No vomiting no seizure-like activity No diarrhea No agitation No obvious discomfort Hospitalist Physical - Physical exam Narrative exam: General.: Morbidly obese, patient is drooling HEENT: Moist mucous membranes, extraocular muscles intact, no lymphadenopathy Neck: supple Cardiac: S1-S2 heard Lungs: clear to auscultation bilaterally Abdomen: soft , nontender, nondistended, bowel sounds positive Extremities: no edema clubbing or cyanosis Skin: no rash or lesions Neurologic: He is awake and alert. He is currently nonverbal. But he nods and shakes his head. He obeys commands Psych: calm, - Constitutional Vitals: Temp Pulse Resp BP Pulse Ox 99.2 F 79 20 207/120 98 06/11/19 08:00 06/11/19 08:57 06/11/19 08:57 06/11/19 08:57 06/11/19 08:57 General appearance: Present: mild distress, obese Results - Labs CBC & Chem 7: 06/10/19 05:45 06/11/19 08:34 Labs: Laboratory Last Values WBC 14.6 K/mm3 (4.5-11.0) H 06/10/19 05:45 RBC 3.67 M/mm3 (3.65-5.03) 06/10/19 05:45 Hgb 9.9 gm/dl (11.8-15.2) L 06/10/19 05:45 Hct 32.2 % (35.5-45.6) L 06/10/19 05:45 MCV 88 fl (84-94) 06/10/19 05:45 MCH 27 pg (28-32) L 06/10/19 05:45 MCHC 31 % (32-34) L 06/10/19 05:45 RDW 19.6 % (13.2-15.2) H 06/10/19 05:45 Plt Count 206 K/mm3 (140-440) 06/10/19 05:45 Lymph % (Auto) 10.5 % (13.4-35.0) L 06/10/19 05:45 Wirt % (Auto) 9.4 % (0.0-7.3) H 06/10/19 05:45 Eos % (Auto) 0.0 % (0.0-4.3) 06/10/19 05:45 Baso % (Auto) 0.2 % (0.0-1.8) 06/10/19 05:45 Lymph # 1.5 K/mm3 (1.2-5.4) 06/10/19 05:45 Wirt # 1.4 K/mm3 (0.0-0.8) H 06/10/19 05:45 Eos # 0.0 K/mm3 (0.0-0.4) 06/10/19 05:45 Baso # 0.0 K/mm3 (0.0-0.1) 06/10/19 05:45 Add Manual Diff Complete 06/08/19 04:20 Total Counted 100 06/08/19 04:20 Seg Neutrophils % 79.9 % (40.0-70.0) H 06/10/19 05:45 Seg Neuts % (Manual) 87.0 % (40.0-70.0) H 06/08/19 04:20 Band Neutrophils % 0 % 06/08/19 04:20 Lymphocytes % (Manual) 7.0 % (13.4-35.0) L 06/08/19 04:20 Reactive Lymphs % (Man) 0 % 06/08/19 04:20 Monocytes % (Manual) 6.0 % (0.0-7.3) 06/08/19 04:20 Eosinophils % (Manual) 0 % (0.0-4.3) 06/08/19 04:20 Basophils % (Manual) 0 % (0.0-1.8) 06/08/19 04:20 Metamyelocytes % 0 % 06/08/19 04:20 Myelocytes % 0 % 06/08/19 04:20 Promyelocytes % 0 % 06/08/19 04:20 Blast Cells % 0 % 06/08/19 04:20 Nucleated RBC % Not Reportable 06/08/19 04:20 Seg Neutrophils # 11.7 K/mm3 (1.8-7.7) H 06/10/19 05:45 Seg Neutrophils # Man 13.9 K/mm3 (1.8-7.7) H 06/08/19 04:20 Band Neutrophils # 0.0 K/mm3 06/08/19 04:20 Lymphocytes # (Manual) 1.1 K/mm3 (1.2-5.4) L 06/08/19 04:20 Abs React Lymphs (Man) 0.0 K/mm3 06/08/19 04:20 Monocytes # (Manual) 1.0 K/mm3 (0.0-0.8) H 06/08/19 04:20 Eosinophils # (Manual) 0.0 K/mm3 (0.0-0.4) 06/08/19 04:20 Basophils # (Manual) 0.0 K/mm3 (0.0-0.1) 06/08/19 04:20 Metamyelocytes # 0.0 K/mm3 06/08/19 04:20 Myelocytes # 0.0 K/mm3 06/08/19 04:20 Promyelocytes # 0.0 K/mm3 06/08/19 04:20 Blast Cells # 0.0 K/mm3 06/08/19 04:20 WBC Morphology Not Reportable 06/08/19 04:20 Hypersegmented Neuts Not Reportable 06/08/19 04:20 Hyposegmented Neuts Not Reportable 06/08/19 04:20 Hypogranular Neuts Not Reportable 06/08/19 04:20 Smudge Cells Not Reportable 06/08/19 04:20 Toxic Granulation Not Reportable 06/08/19 04:20 Toxic Vacuolation Not Reportable 06/08/19 04:20 Dohle Bodies Not Reportable 06/08/19 04:20 Pelger-Huet Anomaly Not Reportable 06/08/19 04:20 Renea Rods Not Reportable 06/08/19 04:20 Platelet Estimate Consistent w auto 06/08/19 04:20 Clumped Platelets Not Reportable 06/08/19 04:20 Plt Clumps, EDTA Not Reportable 06/08/19 04:20 Large Platelets Not Reportable 06/08/19 04:20 Giant Platelets Not Reportable 06/08/19 04:20 Platelet Satelliting Not Reportable 06/08/19 04:20 Plt Morphology Comment Not Reportable 06/08/19 04:20 RBC Morphology Not Reportable 06/08/19 04:20 Dimorphic RBCs Not Reportable 06/08/19 04:20 Polychromasia Not Reportable 06/08/19 04:20 Hypochromasia Not Reportable 06/08/19 04:20 Poikilocytosis Not Reportable 06/08/19 04:20 Anisocytosis Not Reportable 06/08/19 04:20 Microcytosis Not Reportable 06/08/19 04:20 Macrocytosis Not Reportable 06/08/19 04:20 Spherocytes Not Reportable 06/08/19 04:20 Pappenheimer Bodies Not Reportable 06/08/19 04:20 Sickle Cells Not Reportable 06/08/19 04:20 Target Cells Not Reportable 06/08/19 04:20 Tear Drop Cells Not Reportable 06/08/19 04:20 Ovalocytes Rare 06/08/19 04:20 Stomatocytes Few 06/08/19 04:20 Helmet Cells Not Reportable 06/08/19 04:20 [place] Bodies Not Reportable 06/08/19 04:20 [place] Rings Not Reportable 06/08/19 04:20 [place] Cells Not Reportable 06/08/19 04:20 Bite Cells Not Reportable 06/08/19 04:20 Crenated Cell Not Reportable 06/08/19 04:20 Elliptocytes Not Reportable 06/08/19 04:20 Acanthocytes (Spur) Not Reportable 06/08/19 04:20 Rouleaux Not Reportable 06/08/19 04:20 Hemoglobin C Crystals Not Reportable 06/08/19 04:20 Schistocytes Few 06/08/19 04:20 Malaria parasites Not Reportable 06/08/19 04:20 Syed Bodies Not Reportable 06/08/19 04:20 Hem Pathologist Commnt No 06/08/19 04:20 PT 15.4 Sec. (12.2-14.9) H 05/01/19 Unknown INR 1.23 (0.87-1.13) H 05/01/19 Unknown APTT 22.7 Sec. (24.2-36.6) L 05/01/19 Unknown POC ABG pH 7.462 (7.35-7.45) H 06/05/19 03:52 ABG pH 7.480 pH Units (7.350-7.450) H 06/07/19 04:30 POC ABG pCO2 39.8 (35-45) 06/05/19 03:52 ABG pCO2 37.4 mm Hg 06/07/19 04:30 POC ABG pO2 86 (80-105) 06/05/19 03:52 ABG pO2 77.0 mm Hg (80.0-90.0) L 06/07/19 04:30 POC ABG HCO3 28.4 (22-26 mml/L) 06/05/19 03:52 ABG HCO3 27.2 mmol/L (20.0-26.0) H 06/07/19 04:30 POC ABG Total CO2 30 (23-27mmol/L) 06/05/19 03:52 POC ABG O2 Sat 97 06/05/19 03:52 ABG O2 Saturation 96.7 % (95.0-99.0) 06/07/19 04:30 ABG O2 Content 9.5 (0.0-44) 06/07/19 04:30 POC ABG Base Excess 5 ((-2) - (+3)mmol/L) 06/05/19 03:52 ABG Base Excess 3.5 mmol/L (-2.0-3.0) H 06/07/19 04:30 ABG Hemoglobin 7.1 gm/dl (14.0-18.0) L 06/07/19 04:30 ABG Carboxyhemoglobin 2.1 % (0.0-5.0) 06/07/19 04:30 ABG Methemoglobin 0.4 % (0.0-1.5) 06/07/19 04:30 Oxyhemoglobin 94.2 % (95.0-99.0) L 06/07/19 04:30 FiO2 30 % 06/07/19 04:30 Sodium 154 mmol/L (137-145) H 06/11/19 08:34 Potassium 4.2 mmol/L (3.6-5.0) 06/11/19 08:34 Chloride 111.6 mmol/L (98-107) H 06/11/19 08:34 Carbon Dioxide 28 mmol/L (22-30) 06/11/19 08:34 Anion Gap 19 mmol/L 06/11/19 08:34 BUN 41 mg/dL (9-20) H 06/11/19 08:34 Creatinine 0.9 mg/dL (0.8-1.5) 06/11/19 08:34 Estimated GFR > 60 ml/min 06/11/19 08:34 BUN/Creatinine Ratio 46 % 06/11/19 08:34 Glucose 147 mg/dL (75-100) H 06/11/19 08:34 POC Glucose 185 (70-105) H 06/11/19 12:33 Osmolality 327 Mosm/kg 05/07/19 13:45 Uric Acid 18.0 mg/dL (3.5-7.6) H 05/07/19 13:45 Calcium 9.0 mg/dL (8.4-10.2) 06/11/19 08:34 Phosphorus 3.70 mg/dL (2.5-4.5) 06/10/19 05:45 Magnesium 1.40 mg/dL (1.7-2.3) L 06/10/19 05:45 Total Bilirubin 0.50 mg/dL (0.1-1.2) 06/08/19 04:20 AST 23 units/L (5-40) 06/08/19 04:20 ALT 66 units/L (7-56) H 06/08/19 04:20 Alkaline Phosphatase 59 units/L (35-129) 06/08/19 04:20 Total Creatine Kinase 131 units/L (55-170) 05/02/19 04:41 CK-MB (CK-2) 5.2 ng/mL (0.0-4.0) H 05/02/19 04:41 CK-MB (CK-2) Rel Index 3.9 (0-4) 05/02/19 04:41 Troponin T 0.067 ng/mL (0.00-0.029) H D 05/02/19 04:41 NT-Pro-B Natriuret Pep 6831 pg/mL (0-450) H 05/01/19 Unknown Total Protein 5.5 g/dL (6.3-8.2) L 06/08/19 04:20 Albumin 2.9 g/dL (3.9-5) L 06/08/19 04:20 Albumin/Globulin Ratio 1.1 % 06/08/19 04:20 Triglycerides 173 mg/dL (2-149) H 05/17/19 Unknown Cholesterol 173 mg/dL (50-199) 05/02/19 00:06 LDL Cholesterol Direct 126 mg/dL (50-130) 05/02/19 00:06 HDL Cholesterol 18 mg/dL (40-59) L 05/02/19 00:06 Cholesterol/HDL Ratio 9.61 % 05/02/19 00:06 Procalcitonin 0.54 ng/mL (<0.15) 05/03/19 11:52 Urine Color Yellow (Yellow) 05/20/19 12:00 Urine Turbidity Cloudy (Clear) 05/20/19 12:00 Urine pH 5.0 (5.0-7.0) 05/20/19 12:00 Ur Specific Odem 1.015 (1.003-1.030) 05/20/19 12:00 Urine Protein 30 mg/dl mg/dL (Negative) 05/20/19 12:00 Urine Glucose (UA) Neg mg/dL (Negative) 05/20/19 12:00 Urine Ketones Neg mg/dL (Negative) 05/20/19 12:00 Urine Blood Lg (Negative) 05/20/19 12:00 Urine Nitrite Neg (Negative) 05/20/19 12:00 Urine Bilirubin Neg (Negative) 05/20/19 12:00 Urine Urobilinogen < 2.0 mg/dL (<2.0) 05/20/19 12:00 Ur Leukocyte Esterase Mod (Negative) 05/20/19 12:00 Urine WBC (Auto) 26.0 /HPF (0.0-6.0) H 05/20/19 12:00 Urine RBC (Auto) 83.0 /HPF (0.0-6.0) 05/20/19 12:00 Urine Bacteria (Auto) 1+ /HPF (Negative) 05/20/19 12:00 Uric Acid Crystals 3+ 05/03/19 10:55 Urine Mucus Few /HPF 05/20/19 12:00 Urine Yeast (Budding) 3+ /HPF 05/20/19 12:00 Urine Creatinine 292.8 mg/dL (0.1-20.0) H 05/07/19 22:40 Urine Sodium 11 mmol/L 05/07/19 22:40 Urine Total Protein 269 mg/dL (5-11.8) H 05/07/19 22:40 Vancomycin Trough 20.5 ug/mL (5.0-20.0) H 05/15/19 09:00 Random Vancomycin 11.5 ug/mL (0-40.0) 05/27/19 06:00 AMNA Screen Negative (Negative) 05/07/19 13:45 Hepatitis A IgM Ab Non-reactive (NonReactive) 05/07/19 13:45 Hep Bs Antigen Non-reactive (Negative) 05/07/19 13:45 Hep B Core IgM Ab Non-reactive (NonReactive) 05/07/19 13:45 Hepatitis C Antibody Non-reactive (NonReactive) 05/07/19 13:45 Active Medications - Current Medications Current Medications: Generic Name Dose Route Start Last Admin Trade Name Freq PRN Reason Stop Dose Admin Albumin Human 25 gm 05/19/19 10:47 Alburx 25% (Albumin) IV ARIANE PRN Hypotension Lipase/Protease/Amylase 1 each 05/14/19 15:[address] 10,500 Unit FEEDTUBE PRN PRN For Clogged Feeding Tube Clonidine HCl 0.3 mg 06/06/19 20:00 06/06/19 20:38 Catapres-Tts Patch TD 0.3 mg Lao VICKEY Administration Dextrose 50 gm 05/01/19 20:24 D50w (25gm) Vial IV Q30MIN PRN Hypoglycemia Protocol Enoxaparin Sodium 30 mg 05/16/19 10:00 06/11/19 10:57 Enoxaparin SUB-Q 30 mg QDAY VICKEY Administration Famotidine 20 mg 05/16/19 10:00 06/11/19 10:59 Pepcid PO Not Given DAILY VICKEY Hydralazine HCl 20 mg 05/13/19 08:09 06/11/19 04:52 Apresoline IV 20 mg Q4HR PRN Administration SBP >/=160 Levetiracetam 750 mg/ Dextrose 107.5 mls @ 400 mls/hr 06/09/19 22:00 06/11/19 10:57 IV 400 mls/hr Q12HR VICKEY Administration Dextrose 1,000 mls @ 125 mls/hr 06/10/19 08:00 06/11/19 10:58 D5w IV 125 mls/hr DIRECT VICKEY Administration Insulin Glargine 20 units 06/07/19 22:00 06/11/19 00:48 Lantus SUB-Q Not Given QHS VICKEY Insulin Human Lispro 0 unit 06/01/19 14:00 06/11/19 06:17 Humalog SUB-Q 3 unit Q6HR VICKEY Administration Protocol Labetalol HCl 10 mg 06/09/19 23:00 06/11/19 06:16 Labetalol IV 10 mg Q4H PRN Administration BP >170/105; hold for HR <60 Methylprednisolone Sodium Succinate 40 mg 06/10/19 14:00 06/11/19 06:16 Solu-Medrol IV 40 mg Q8HR VICKEY Administration Minoxidil 2.5 mg 06/06/19 22:00 06/11/19 10:59 Loniten PO Not Given BID VICKEY Simple Syrup 15 ml 05/14/19 15:01 Simple Syrup FEEDTUBE PRN PRN Hypoglycemia Simple Syrup 30 ml 05/14/19 15:01 Simple Syrup FEEDTUBE PRN PRN Hypoglycemia Sodium Bicarbonate 325 mg 05/14/19 15:01 Sodium Bicarbonate FEEDTUBE PRN PRN For Clogged Feeding Tube Nutrition/Malnutrition Assess - Dietary Evaluation Nutrition/Malnutrition Findings: Nutrition Notes Start: 05/04/19 12:54 Freq: Status: Active Protocol: Document 06/10/19 12:28 CW (Rec: 06/10/19 12:53 CW [id number]) Co-Sign 06/10/19 12:28 LP Nutrition Notes Initial or Follow up Reassessment Current Diagnosis Acute Kidney Injury,Sepsis, Respiratory Failure Other Pertinent Diagnosis on HD Current Diet Nepro 1.8 at 50 ml/hr Labs/Tests Na 150 BUN 49 BG 172 POC 165 Pertinent Medications D5w at 125 ml/hr Humalog Solumedrol Enoxaparin Height 6 ft 4 in Weight 257.2 kg [place] Body Weight (kg) 91.81 BMI 69.0 Weight change and time frame No wt change noted Weight Status Morbidly Obese Subjective/Other Information Pt tolerating Nepro at 50ml/hr . Pt on HD. Pt Extubated on . [employer] attempted swallow eval but was unable to complete D /T biPAP. Pt has elevated Na levels. Water flush increased to 250 ml q4hr. Percent of energy/protein needs met: 100%/43% Burn Absent Trauma Absent Current % PO Negligible Minimum of two criteria No physical signs of malnutrition #1 Nutrition Diagnosis Inadequate oral intake Diagnosis Progress(for reassessment Continues documentation) Is patient on ventilator? No Is Patient Ambulatory and/or Out of Bed No REE-([place]-confined to bed) 4342.284 Kcal/Kg value to use for calculation 8 Approximate Energy Requirements Using 2057 kcal/Kg Calculation Used for Recommendations Kcal/kg Additional Notes PRO needs: 225 g (up to 2.5 g/ kg IBW) Fluid needs: 1 ml/kcal Nutrition Intervention Change Diet Order: Continue TF Nutrition Support: Nepro 1.8 at 50 ml/hr Flush with 250ml q4h Kcal 2,160 Protein (gm) 97 Fluid (mL) 872 Goal #1 TF tolerance Goal #2 Meet at least 75% kcal/PRO needs via TF Goal #3 diet advancement Anticipated Discharge Needs: Unable to determine at this time Follow-Up By: 06/15/19 Additional Comments Follow for TF tolerance/ diet advancement/ Na labs
--- NOTE | 2019-06-11 16:28 | Progress Note ---
Assessment and Plan Patient is a 34-year-old man with a history of obesity. Patient presented on 05/01/2019 with shortness of breath. The patient reportedly was found to be in severe hypoxia, and bradycardia. Patient went into respiratory arrest, and coded. He required intubation, and reportedly required CPR. According patient's clinical findings, it is likely that the patient has metabolic encephalopathy as well as anoxic encephalopathy. Can support his diagnosis, the patient had an initial episode of severe hypoxia, and has also had during the co urse of admission HPI, leukocytosis, and hypernatremia. Plan: 1. Metabolic/Anoxic Encephalopathy: - Unable to have [employer] imaging due to body habitus - EEG: generalized slowing. No seizures or epileptiform activity - Continue to investigate correct metabolic abnormalities and infections per primary team - Cont. keppra, as patient had hypoxic brain injury, which could lower seizure threshold. - Cont. supportive care per primary/ICU teams - Will sign off, as I am not covering neurology service over the weekend. Recommend consult neuroligst covering service over the weekend for further neurologic monitoring and management. Thank you for allowing me to take part in the care of this patient. Daniele Hebert MD Neurology Subjective Date of service: 06/11/19 Principal diagnosis: HF; acute hypoxemic resp failure, SIRS, CARLA Interval history: No acute events overnight. Objective - Exam Narrative Exam: Patient is alert, awake, attempts to mouth words however is difficult to hear, follows 2 step commands. Able to say he is ok, nods head appropriately. PERRL, EOMI, VFF to threat, no facial weakness noted, tongue midline. UE 3/5, LE 2/5. W/d to pain in all extremities. 2+ reflexes throughout. - Vital Sign Vital Signs - 12hr 06/11/19 06/11/19 06/11/19 04:31 04:52 04:55 Temperature 98.3 F Pulse Rate 90 94 H Respiratory 22 Rate Blood Pressure 188/118 188/118 O2 Sat by Pulse 88 Oximetry 06/11/19 06/11/19 06/11/19 05:01 05:03 05:31 Temperature Pulse Rate 87 87 102 H Respiratory 20 20 29 H Rate Blood Pressure 188/118 188/118 184/107 O2 Sat by Pulse 96 94 96 Oximetry 06/11/19 06/11/19 06/11/19 06:01 06:16 06:31 Temperature Pulse Rate 99 H 97 H 92 H Respiratory 32 H 21 Rate Blood Pressure 184/107 182/110 182/110 O2 Sat by Pulse 94 95 Oximetry 06/11/19 06/11/19 06/11/19 07:01 07:31 08:00 Temperature 99.2 F Pulse Rate 93 H 90 Respiratory 14 16 Rate Blood Pressure 182/110 166/112 O2 Sat by Pulse 94 97 Oximetry 06/11/19 06/11/19 06/11/19 08:01 08:31 08:57 Temperature Pulse Rate 86 91 H 79 Respiratory 25 H 18 20 Rate Blood Pressure 207/120 166/112 207/120 O2 Sat by Pulse 92 96 98 Oximetry 06/11/19 06/11/19 06/11/19 09:00 09:31 10:00 Temperature Pulse Rate 77 64 77 Respiratory 20 22 15 Rate Blood Pressure 199/117 199/117 185/119 O2 Sat by Pulse 94 97 94 Oximetry 06/11/19 06/11/19 06/11/19 10:31 11:00 11:31 Temperature Pulse Rate 83 81 74 Respiratory 20 19 17 Rate Blood Pressure 199/117 193/116 193/116 O2 Sat by Pulse 97 95 98 Oximetry 06/11/19 06/11/19 06/11/19 12:00 12:31 13:00 Temperature Pulse Rate 79 70 77 Respiratory 17 20 21 Rate Blood Pressure 205/110 193/116 204/104 O2 Sat by Pulse 87 97 96 Oximetry 06/11/19 06/11/19 06/11/19 13:31 14:00 14:31 Temperature Pulse Rate 80 83 82 Respiratory 23 24 21 Rate Blood Pressure 205/110 199/111 199/111 O2 Sat by Pulse 96 95 97 Oximetry 06/11/19 15:38 Temperature Pulse Rate 73 Respiratory Rate Blood Pressure 201/110 O2 Sat by Pulse Oximetry - General Apperance Constitutional: uncomfortable - EENT EENT: ATNC, PERRL, mucous membranes moist - Respiratory Respiratory: decreased breath sounds - Cardiovascular Cardiovascular: regular rate, normal S1, normal S2 Extremities: no clubbing, cyanosis, no inflammation - Gastrointestinal Gastrointestinal: normoactive bowel sounds, soft, non-tender - Laboratory Findings CBC and BMP: 06/10/19 05:45 06/11/19 08:34 Abnormal Lab Findings: Abnormal Labs 05/01/19 05/01/19 05/01/19 17:50 19:26 22:36 WBC RBC Hgb Hct MCV MCH MCHC RDW Lymph % (Auto) [place] % (Auto) Eos % (Auto) Lymph # [place] # Eos # Seg Neutrophils % Seg Neuts % (Manual) Lymphocytes % (Manual) Monocytes % (Manual) Eosinophils % (Manual) Nucleated RBC % Seg Neutrophils # Seg Neutrophils # Man Lymphocytes # (Manual) Monocytes # (Manual) Eosinophils # (Manual) PT INR APTT POC ABG pH 7.272 L 7.331 L ABG pH POC ABG pCO2 52.8 H POC ABG pO2 ABG pO2 ABG HCO3 ABG O2 Saturation ABG Base Excess ABG Hemoglobin Oxyhemoglobin Sodium 136 L Potassium 6.5 H* Chloride 97.2 L Carbon Dioxide BUN 60 H Creatinine Glucose 113 H POC Glucose Uric Acid Calcium Phosphorus Magnesium 2.40 H AST 139 H ALT 154 H Total Creatine Kinase CK-MB (CK-2) Troponin T NT-Pro-B Natriuret Pep Total Protein Albumin 3.8 L Triglycerides HDL Cholesterol Urine WBC (Auto) Urine Creatinine Urine Total Protein Vancomycin Trough 05/01/19 05/01/19 05/01/19 Unknown Unknown Unknown WBC 16.1 H RBC Hgb Hct MCV MCH MCHC RDW 17.2 H Lymph % (Auto) [place] % (Auto) 9.6 H Eos % (Auto) Lymph # [place] # 1.5 H Eos # Seg Neutrophils % 73.0 H Seg Neuts % (Manual) Lymphocytes % (Manual) Monocytes % (Manual) Eosinophils % (Manual) Nucleated RBC % Seg Neutrophils # 11.7 H Seg Neutrophils # Man Lymphocytes # (Manual) Monocytes # (Manual) Eosinophils # (Manual) PT 15.4 H INR 1.23 H APTT 22.7 L POC ABG pH ABG pH POC ABG pCO2 POC ABG pO2 ABG pO2 ABG HCO3 ABG O2 Saturation ABG Base Excess ABG Hemoglobin Oxyhemoglobin Sodium Potassium Chloride Carbon Dioxide BUN Creatinine Glucose POC Glucose Uric Acid Calcium Phosphorus Magnesium AST ALT Total Creatine Kinase CK-MB (CK-2) Troponin T NT-Pro-B Natriuret Pep 6831 H Total Protein Albumin Triglycerides HDL Cholesterol Urine WBC (Auto) Urine Creatinine Urine Total Protein Vancomycin Trough 05/01/19 05/02/19 05/02/19 Unknown 00:06 00:06 WBC RBC Hgb Hct MCV MCH MCHC RDW Lymph % (Auto) [place] % (Auto) Eos % (Auto) Lymph # [place] # Eos # Seg Neutrophils % Seg Neuts % (Manual) Lymphocytes % (Manual) Monocytes % (Manual) Eosinophils % (Manual) Nucleated RBC % Seg Neutrophils # Seg Neutrophils # Man Lymphocytes # (Manual) Monocytes # (Manual) Eosinophils # (Manual) PT INR APTT POC ABG pH ABG pH POC ABG pCO2 POC ABG pO2 ABG pO2 ABG HCO3 ABG O2 Saturation ABG Base Excess ABG Hemoglobin Oxyhemoglobin Sodium Potassium Chloride Carbon Dioxide BUN Creatinine Glucose POC Glucose Uric Acid Calcium Phosphorus 4.90 H Magnesium AST ALT Total Creatine Kinase 226 H CK-MB (CK-2) 5.7 H Troponin T 0.044 H NT-Pro-B Natriuret Pep Total Protein Albumin Triglycerides 182 H HDL Cholesterol 18 L Urine WBC (Auto) Urine Creatinine Urine Total Protein Vancomycin Trough 05/02/19 05/02/19 05/02/19 02:08 04:40 04:41 WBC 17.6 H RBC Hgb Hct MCV MCH 27 L MCHC RDW 17.4 H Lymph % (Auto) 10.2 L [place] % (Auto) 11.0 H Eos % (Auto) Lymph # [place] # 1.9 H Eos # Seg Neutrophils % 78.0 H Seg Neuts % (Manual) Lymphocytes % (Manual) Monocytes % (Manual) Eosinophils % (Manual) Nucleated RBC % Seg Neutrophils # 13.8 H Seg Neutrophils # Man Lymphocytes # (Manual) Monocytes # (Manual) Eosinophils # (Manual) PT INR APTT POC ABG pH ABG pH POC ABG pCO2 46.8 H POC ABG pO2 63 L ABG pO2 ABG HCO3 ABG O2 Saturation ABG Base Excess ABG Hemoglobin Oxyhemoglobin Sodium Potassium Chloride 96.3 L Carbon Dioxide BUN 63 H Creatinine 1.7 H Glucose POC Glucose Uric Acid Calcium Phosphorus Magnesium AST ALT Total Creatine Kinase CK-MB (CK-2) Troponin T NT-Pro-B Natriuret Pep Total Protein Albumin Triglycerides HDL Cholesterol Urine WBC (Auto) Urine Creatinine Urine Total Protein Vancomycin Trough 05/02/19 05/02/19 05/02/19 04:41 04:41 16:05 WBC RBC Hgb Hct MCV MCH MCHC RDW Lymph % (Auto) [place] % (Auto) Eos % (Auto) Lymph # [place] # Eos # Seg Neutrophils % Seg Neuts % (Manual) Lymphocytes % (Manual) Monocytes % (Manual) Eosinophils % (Manual) Nucleated RBC % Seg Neutrophils # Seg Neutrophils # Man Lymphocytes # (Manual) Monocytes # (Manual) Eosinophils # (Manual) PT INR APTT POC ABG pH ABG pH POC ABG pCO2 POC ABG pO2 ABG pO2 66.6 L ABG HCO3 31.9 H ABG O2 Saturation 92.5 L ABG Base Excess 5.8 H ABG Hemoglobin 13.3 L Oxyhemoglobin 90.6 L Sodium Potassium Chloride 97.2 L Carbon Dioxide BUN 61 H Creatinine 1.8 H Glucose POC Glucose Uric Acid Calcium Phosphorus Magnesium AST ALT Total Creatine Kinase CK-MB (CK-2) 5.2 H Troponin T 0.067 H D NT-Pro-B Natriuret Pep Total Protein Albumin Triglycerides HDL Cholesterol Urine WBC (Auto) Urine Creatinine Urine Total Protein Vancomycin Trough 05/02/19 05/03/19 05/03/19 20:39 04:35 05:05 WBC 11.8 H RBC Hgb Hct MCV MCH 27 L MCHC 31 L RDW 17.2 H Lymph % (Auto) [place] % (Auto) Eos % (Auto) Lymph # [place] # Eos # Seg Neutrophils % Seg Neuts % (Manual) Lymphocytes % (Manual) Monocytes % (Manual) Eosinophils % (Manual) Nucleated RBC % Seg Neutrophils # Seg Neutrophils # Man Lymphocytes # (Manual) Monocytes # (Manual) Eosinophils # (Manual) PT INR APTT POC ABG pH ABG pH POC ABG pCO2 53.6 H 54.0 H POC ABG pO2 55 L 63 L ABG pO2 ABG HCO3 ABG O2 Saturation ABG Base Excess ABG Hemoglobin Oxyhemoglobin Sodium Potassium Chloride Carbon Dioxide BUN Creatinine Glucose POC Glucose Uric Acid Calcium Phosphorus Magnesium AST ALT Total Creatine Kinase CK-MB (CK-2) Troponin T NT-Pro-B Natriuret Pep Total Protein Albumin Triglycerides HDL Cholesterol Urine WBC (Auto) Urine Creatinine Urine Total Protein Vancomycin Trough 05/03/19 05/03/19 05/03/19 05:05 10:55 16:48 WBC RBC Hgb Hct MCV MCH MCHC RDW Lymph % (Auto) [place] % (Auto) Eos % (Auto) Lymph # [place] # Eos # Seg Neutrophils % Seg Neuts % (Manual) Lymphocytes % (Manual) Monocytes % (Manual) Eosinophils % (Manual) Nucleated RBC % Seg Neutrophils # Seg Neutrophils # Man Lymphocytes # (Manual) Monocytes # (Manual) Eosinophils # (Manual) PT INR APTT POC ABG pH 7.604 H ABG pH POC ABG pCO2 POC ABG pO2 58 L ABG pO2 ABG HCO3 ABG O2 Saturation ABG Base Excess ABG Hemoglobin Oxyhemoglobin Sodium Potassium Chloride Carbon Dioxide BUN 52 H Creatinine 1.9 H Glucose 103 H POC Glucose Uric Acid Calcium Phosphorus Magnesium AST ALT Total Creatine Kinase CK-MB (CK-2) Troponin T NT-Pro-B Natriuret Pep Total Protein Albumin Triglycerides HDL Cholesterol Urine WBC (Auto) 33.0 H Urine Creatinine Urine Total Protein Vancomycin Trough 05/04/19 05/04/19 05/04/19 04:49 06:50 06:50 WBC 16.0 H RBC Hgb Hct MCV MCH 27 L MCHC 31 L RDW 17.8 H Lymph % (Auto) [place] % (Auto) Eos % (Auto) Lymph # [place] # Eos # Seg Neutrophils % Seg Neuts % (Manual) Lymphocytes % (Manual) Monocytes % (Manual) Eosinophils % (Manual) Nucleated RBC % Seg Neutrophils # Seg Neutrophils # Man Lymphocytes # (Manual) Monocytes # (Manual) Eosinophils # (Manual) PT INR APTT POC ABG pH 7.273 L ABG pH POC ABG pCO2 POC ABG pO2 ABG pO2 ABG HCO3 ABG O2 Saturation ABG Base Excess ABG Hemoglobin Oxyhemoglobin Sodium 148 H Potassium 5.5 H Chloride Carbon Dioxide BUN 53 H Creatinine 3.3 H D Glucose 106 H POC Glucose Uric Acid Calcium 8.3 L Phosphorus Magnesium AST ALT Total Creatine Kinase CK-MB (CK-2) Troponin T NT-Pro-B Natriuret Pep Total Protein Albumin Triglycerides HDL Cholesterol Urine WBC (Auto) Urine Creatinine Urine Total Protein Vancomycin Trough 05/05/19 05/05/19 05/05/19 00:05 04:30 05:00 WBC RBC Hgb Hct MCV MCH MCHC RDW Lymph % (Auto) [place] % (Auto) Eos % (Auto) Lymph # [place] # Eos # Seg Neutrophils % Seg Neuts % (Manual) Lymphocytes % (Manual) Monocytes % (Manual) Eosinophils % (Manual) Nucleated RBC % Seg Neutrophils # Seg Neutrophils # Man Lymphocytes # (Manual) Monocytes # (Manual) Eosinophils # (Manual) PT INR APTT POC ABG pH 7.225 L ABG pH POC ABG pCO2 > 70 H POC ABG pO2 ABG pO2 ABG HCO3 ABG O2 Saturation ABG Base Excess ABG Hemoglobin Oxyhemoglobin Sodium 151 H Potassium 5.1 H Chloride Carbon Dioxide BUN 64 H Creatinine 3.5 H Glucose 117 H POC Glucose 141 H Uric Acid Calcium 7.5 L Phosphorus Magnesium AST 93 H ALT 65 H Total Creatine Kinase CK-MB (CK-2) Troponin T NT-Pro-B Natriuret Pep Total Protein Albumin 2.9 L Triglycerides HDL Cholesterol Urine WBC (Auto) Urine Creatinine Urine Total Protein Vancomycin Trough 05/05/19 05/05/19 05/05/19 05:00 12:02 17:46 WBC 12.0 H RBC Hgb 11.3 L Hct MCV MCH 27 L MCHC 30 L RDW 18.4 H Lymph % (Auto) 7.9 L [place] % (Auto) 10.2 H Eos % (Auto) Lymph # 1.0 L [place] # 1.2 H Eos # Seg Neutrophils % 80.8 H Seg Neuts % (Manual) Lymphocytes % (Manual) Monocytes % (Manual) Eosinophils % (Manual) Nucleated RBC % Seg Neutrophils # 9.7 H Seg Neutrophils # Man Lymphocytes # (Manual) Monocytes # (Manual) Eosinophils # (Manual) PT INR APTT POC ABG pH ABG pH POC ABG pCO2 POC ABG pO2 ABG pO2 ABG HCO3 ABG O2 Saturation ABG Base Excess ABG Hemoglobin Oxyhemoglobin Sodium Potassium Chloride Carbon Dioxide BUN Creatinine Glucose POC Glucose 125 H 112 H Uric Acid Calcium Phosphorus Magnesium AST ALT Total Creatine Kinase CK-MB (CK-2) Troponin T NT-Pro-B Natriuret Pep Total Protein Albumin Triglycerides HDL Cholesterol Urine WBC (Auto) Urine Creatinine Urine Total Protein Vancomycin Trough 05/05/19 05/06/19 05/06/19 23:42 03:58 04:45 WBC 11.4 H RBC Hgb 10.7 L Hct 34.2 L MCV MCH 27 L MCHC 31 L RDW 16.9 H Lymph % (Auto) [place] % (Auto) Eos % (Auto) Lymph # [place] # Eos # Seg Neutrophils % Seg Neuts % (Manual) Lymphocytes % (Manual) Monocytes % (Manual) Eosinophils % (Manual) Nucleated RBC % Seg Neutrophils # Seg Neutrophils # Man Lymphocytes # (Manual) Monocytes # (Manual) Eosinophils # (Manual) PT INR APTT POC ABG pH ABG pH POC ABG pCO2 62.4 H POC ABG pO2 111 H ABG pO2 ABG HCO3 ABG O2 Saturation ABG Base Excess ABG Hemoglobin Oxyhemoglobin Sodium Potassium Chloride Carbon Dioxide BUN Creatinine Glucose POC Glucose 128 H Uric Acid Calcium Phosphorus Magnesium AST ALT Total Creatine Kinase CK-MB (CK-2) Troponin T NT-Pro-B Natriuret Pep Total Protein Albumin Triglycerides HDL Cholesterol Urine WBC (Auto) Urine Creatinine Urine Total Protein Vancomycin Trough 05/06/19 05/06/19 05/06/19 04:45 05:33 12:30 WBC RBC Hgb Hct MCV MCH MCHC RDW Lymph % (Auto) [place] % (Auto) Eos % (Auto) Lymph # [place] # Eos # Seg Neutrophils % Seg Neuts % (Manual) Lymphocytes % (Manual) Monocytes % (Manual) Eosinophils % (Manual) Nucleated RBC % Seg Neutrophils # Seg Neutrophils # Man Lymphocytes # (Manual) Monocytes # (Manual) Eosinophils # (Manual) PT INR APTT POC ABG pH ABG pH POC ABG pCO2 POC ABG pO2 ABG pO2 ABG HCO3 ABG O2 Saturation ABG Base Excess ABG Hemoglobin Oxyhemoglobin Sodium 149 H Potassium Chloride Carbon Dioxide 31 H BUN 67 H Creatinine 3.2 H Glucose 125 H POC Glucose 117 H 116 H Uric Acid Calcium 7.5 L Phosphorus Magnesium AST ALT Total Creatine Kinase CK-MB (CK-2) Troponin T NT-Pro-B Natriuret Pep Total Protein Albumin Triglycerides HDL Cholesterol Urine WBC (Auto) Urine Creatinine Urine Total Protein Vancomycin Trough 05/06/19 05/06/19 05/07/19 18:34 23:16 05:22 WBC RBC Hgb Hct MCV MCH MCHC RDW Lymph % (Auto) [place] % (Auto) Eos % (Auto) Lymph # [place] # Eos # Seg Neutrophils % Seg Neuts % (Manual) Lymphocytes % (Manual) Monocytes % (Manual) Eosinophils % (Manual) Nucleated RBC % Seg Neutrophils # Seg Neutrophils # Man Lymphocytes # (Manual) Monocytes # (Manual) Eosinophils # (Manual) PT INR APTT POC ABG pH ABG pH POC ABG pCO2 POC ABG pO2 ABG pO2 ABG HCO3 ABG O2 Saturation ABG Base Excess ABG Hemoglobin Oxyhemoglobin Sodium Potassium Chloride Carbon Dioxide BUN Creatinine Glucose POC Glucose 128 H 143 H 166 H Uric Acid Calcium Phosphorus Magnesium AST ALT Total Creatine Kinase CK-MB (CK-2) Troponin T NT-Pro-B Natriuret Pep Total Protein Albumin Triglycerides HDL Cholesterol Urine WBC (Auto) Urine Creatinine Urine Total Protein Vancomycin Trough 05/07/19 05/07/19 05/07/19 06:33 07:03 09:35 WBC RBC Hgb Hct MCV MCH MCHC RDW Lymph % (Auto) [place] % (Auto) Eos % (Auto) Lymph # [place] # Eos # Seg Neutrophils % Seg Neuts % (Manual) Lymphocytes % (Manual) Monocytes % (Manual) Eosinophils % (Manual) Nucleated RBC % Seg Neutrophils # Seg Neutrophils # Man Lymphocytes # (Manual) Monocytes # (Manual) Eosinophils # (Manual) PT INR APTT POC ABG pH 7.263 L 7.288 L ABG pH POC ABG pCO2 POC ABG pO2 51 L 56 L ABG pO2 ABG HCO3 ABG O2 Saturation ABG Base Excess ABG Hemoglobin Oxyhemoglobin Sodium Potassium Chloride Carbon Dioxide BUN 76 H Creatinine 3.2 H Glucose 147 H POC Glucose Uric Acid Calcium 7.9 L Phosphorus Magnesium AST ALT Total Creatine Kinase CK-MB (CK-2) Troponin T NT-Pro-B Natriuret Pep Total Protein Albumin Triglycerides HDL Cholesterol Urine WBC (Auto) Urine Creatinine Urine Total Protein Vancomycin Trough 05/07/19 05/07/19 05/07/19 09:35 12:17 13:45 WBC 13.4 H RBC Hgb 11.6 L Hct MCV MCH 27 L MCHC 31 L RDW 17.5 H Lymph % (Auto) [place] % (Auto) Eos % (Auto) Lymph # [place] # Eos # Seg Neutrophils % Seg Neuts % (Manual) Lymphocytes % (Manual) Monocytes % (Manual) Eosinophils % (Manual) Nucleated RBC % Seg Neutrophils # Seg Neutrophils # Man Lymphocytes # (Manual) Monocytes # (Manual) Eosinophils # (Manual) PT INR APTT POC ABG pH ABG pH POC ABG pCO2 POC ABG pO2 ABG pO2 ABG HCO3 ABG O2 Saturation ABG Base Excess ABG Hemoglobin Oxyhemoglobin Sodium Potassium Chloride Carbon Dioxide BUN Creatinine Glucose POC Glucose 130 H Uric Acid 18.0 H Calcium Phosphorus Magnesium AST ALT Total Creatine Kinase CK-MB (CK-2) Troponin T NT-Pro-B Natriuret Pep Total Protein Albumin Triglycerides HDL Cholesterol Urine WBC (Auto) Urine Creatinine Urine Total Protein Vancomycin Trough 05/07/19 05/07/19 05/08/19 17:39 22:40 05:06 WBC RBC Hgb Hct MCV MCH MCHC RDW Lymph % (Auto) [place] % (Auto) Eos % (Auto) Lymph # [place] # Eos # Seg Neutrophils % Seg Neuts % (Manual) Lymphocytes % (Manual) Monocytes % (Manual) Eosinophils % (Manual) Nucleated RBC % Seg Neutrophils # Seg Neutrophils # Man Lymphocytes # (Manual) Monocytes # (Manual) Eosinophils # (Manual) PT INR APTT POC ABG pH ABG pH POC ABG pCO2 POC ABG pO2 ABG pO2 ABG HCO3 ABG O2 Saturation ABG Base Excess ABG Hemoglobin Oxyhemoglobin Sodium Potassium Chloride Carbon Dioxide BUN Creatinine Glucose POC Glucose 116 H 148 H Uric Acid Calcium Phosphorus Magnesium AST ALT Total Creatine Kinase CK-MB (CK-2) Troponin T NT-Pro-B Natriuret Pep Total Protein Albumin Triglycerides HDL Cholesterol Urine WBC (Auto) Urine Creatinine 292.8 H Urine Total Protein 269 H Vancomycin Trough 05/08/19 05/08/19 05/08/19 05:32 11:28 13:48 WBC RBC Hgb Hct MCV MCH MCHC RDW Lymph % (Auto) [place] % (Auto) Eos % (Auto) Lymph # [place] # Eos # Seg Neutrophils % Seg Neuts % (Manual) Lymphocytes % (Manual) Monocytes % (Manual) Eosinophils % (Manual) Nucleated RBC % Seg Neutrophils # Seg Neutrophils # Man Lymphocytes # (Manual) Monocytes # (Manual) Eosinophils # (Manual) PT INR APTT POC ABG pH ABG pH POC ABG pCO2 45.4 H POC ABG pO2 64 L ABG pO2 ABG HCO3 ABG O2 Saturation ABG Base Excess ABG Hemoglobin Oxyhemoglobin Sodium Potassium Chloride Carbon Dioxide BUN 73 H Creatinine 2.7 H Glucose 127 H POC Glucose 107 H Uric Acid Calcium 7.6 L Phosphorus Magnesium AST ALT Total Creatine Kinase CK-MB (CK-2) Troponin T NT-Pro-B Natriuret Pep Total Protein Albumin Triglycerides HDL Cholesterol Urine WBC (Auto) Urine Creatinine Urine Total Protein Vancomycin Trough 05/08/19 05/09/19 05/09/19 17:48 04:50 04:53 WBC RBC 3.07 L Hgb 8.5 L D Hct 29.3 L D MCV 96 H MCH MCHC 29 L RDW 18.1 H Lymph % (Auto) [place] % (Auto) Eos % (Auto) Lymph # [place] # Eos # Seg Neutrophils % Seg Neuts % (Manual) Lymphocytes % (Manual) Monocytes % (Manual) Eosinophils % (Manual) Nucleated RBC % Seg Neutrophils # Seg Neutrophils # Man Lymphocytes # (Manual) Monocytes # (Manual) Eosinophils # (Manual) PT INR APTT POC ABG pH 7.316 L ABG pH POC ABG pCO2 66.0 H POC ABG pO2 69 L ABG pO2 ABG HCO3 ABG O2 Saturation ABG Base Excess ABG Hemoglobin Oxyhemoglobin Sodium Potassium Chloride Carbon Dioxide BUN Creatinine Glucose POC Glucose 155 H Uric Acid Calcium Phosphorus Magnesium AST ALT Total Creatine Kinase CK-MB (CK-2) Troponin T NT-Pro-B Natriuret Pep Total Protein Albumin Triglycerides HDL Cholesterol Urine WBC (Auto) Urine Creatinine Urine Total Protein Vancomycin Trough 05/09/19 05/09/19 05/09/19 05:46 07:24 12:10 WBC RBC Hgb Hct MCV MCH MCHC RDW Lymph % (Auto) [place] % (Auto) Eos % (Auto) Lymph # [place] # Eos # Seg Neutrophils % Seg Neuts % (Manual) Lymphocytes % (Manual) Monocytes % (Manual) Eosinophils % (Manual) Nucleated RBC % Seg Neutrophils # Seg Neutrophils # Man Lymphocytes # (Manual) Monocytes # (Manual) Eosinophils # (Manual) PT INR APTT POC ABG pH ABG pH POC ABG pCO2 POC ABG pO2 ABG pO2 ABG HCO3 ABG O2 Saturation ABG Base Excess ABG Hemoglobin Oxyhemoglobin Sodium Potassium Chloride Carbon Dioxide BUN 73 H Creatinine 2.4 H Glucose 153 H POC Glucose 123 H 148 H Uric Acid Calcium 8.2 L Phosphorus Magnesium AST 45 H ALT Total Creatine Kinase CK-MB (CK-2) Troponin T NT-Pro-B Natriuret Pep Total Protein 6.0 L Albumin 1.9 L Triglycerides HDL Cholesterol Urine WBC (Auto) Urine Creatinine Urine Total Protein Vancomycin Trough 05/09/19 05/09/19 05/10/19 18:23 23:26 04:52 WBC RBC Hgb Hct MCV MCH MCHC RDW Lymph % (Auto) [place] % (Auto) Eos % (Auto) Lymph # [place] # Eos # Seg Neutrophils % Seg Neuts % (Manual) Lymphocytes % (Manual) Monocytes % (Manual) Eosinophils % (Manual) Nucleated RBC % Seg Neutrophils # Seg Neutrophils # Man Lymphocytes # (Manual) Monocytes # (Manual) Eosinophils # (Manual) PT INR APTT POC ABG pH 7.305 L ABG pH POC ABG pCO2 62.6 H POC ABG pO2 ABG pO2 ABG HCO3 ABG O2 Saturation ABG Base Excess ABG Hemoglobin Oxyhemoglobin Sodium Potassium Chloride Carbon Dioxide BUN Creatinine Glucose POC Glucose 147 H 121 H Uric Acid Calcium Phosphorus Magnesium AST ALT Total Creatine Kinase CK-MB (CK-2) Troponin T NT-Pro-B Natriuret Pep Total Protein Albumin Triglycerides HDL Cholesterol Urine WBC (Auto) Urine Creatinine Urine Total Protein Vancomycin Trough 05/10/19 05/10/19 05/10/19 05:00 05:00 05:50 WBC RBC Hgb 10.3 L Hct 33.7 L MCV MCH 27 L MCHC 31 L RDW 17.0 H Lymph % (Auto) [place] % (Auto) Eos % (Auto) Lymph # [place] # Eos # Seg Neutrophils % Seg Neuts % (Manual) Lymphocytes % (Manual) Monocytes % (Manual) Eosinophils % (Manual) Nucleated RBC % Seg Neutrophils # Seg Neutrophils # Man Lymphocytes # (Manual) Monocytes # (Manual) Eosinophils # (Manual) PT INR APTT POC ABG pH ABG pH POC ABG pCO2 POC ABG pO2 ABG pO2 ABG HCO3 ABG O2 Saturation ABG Base Excess ABG Hemoglobin Oxyhemoglobin Sodium 147 H Potassium Chloride Carbon Dioxide BUN 70 H Creatinine 2.6 H Glucose 155 H POC Glucose 158 H Uric Acid Calcium 8.2 L Phosphorus Magnesium AST ALT Total Creatine Kinase CK-MB (CK-2) Troponin T NT-Pro-B Natriuret Pep Total Protein 6.1 L Albumin 2.5 L Triglycerides HDL Cholesterol Urine WBC (Auto) Urine Creatinine Urine Total Protein Vancomycin Trough 05/10/19 05/11/19 05/11/19 13:14 07:26 11:40 WBC RBC Hgb Hct MCV MCH MCHC RDW Lymph % (Auto) [place] % (Auto) Eos % (Auto) Lymph # [place] # Eos # Seg Neutrophils % Seg Neuts % (Manual) Lymphocytes % (Manual) Monocytes % (Manual) Eosinophils % (Manual) Nucleated RBC % Seg Neutrophils # Seg Neutrophils # Man Lymphocytes # (Manual) Monocytes # (Manual) Eosinophils # (Manual) PT INR APTT POC ABG pH ABG pH POC ABG pCO2 48.0 H POC ABG pO2 58 L ABG pO2 ABG HCO3 ABG O2 Saturation ABG Base Excess ABG Hemoglobin Oxyhemoglobin Sodium 147 H Potassium Chloride 107.2 H Carbon Dioxide BUN 67 H Creatinine 2.6 H Glucose 121 H POC Glucose 159 H Uric Acid Calcium Phosphorus Magnesium AST ALT Total Creatine Kinase CK-MB (CK-2) Troponin T NT-Pro-B Natriuret Pep Total Protein Albumin Triglycerides HDL Cholesterol Urine WBC (Auto) Urine Creatinine Urine Total Protein Vancomycin Trough 05/11/19 05/11/19 05/12/19 18:13 23:46 04:40 WBC RBC Hgb Hct MCV MCH MCHC RDW Lymph % (Auto) [place] % (Auto) Eos % (Auto) Lymph # [place] # Eos # Seg Neutrophils % Seg Neuts % (Manual) Lymphocytes % (Manual) Monocytes % (Manual) Eosinophils % (Manual) Nucleated RBC % Seg Neutrophils # Seg Neutrophils # Man Lymphocytes # (Manual) Monocytes # (Manual) Eosinophils # (Manual) PT INR APTT POC ABG pH ABG pH 7.264 L POC ABG pCO2 POC ABG pO2 ABG pO2 66.8 L ABG HCO3 31.0 H ABG O2 Saturation 92.0 L ABG Base Excess ABG Hemoglobin 10.3 L Oxyhemoglobin 90.1 L Sodium Potassium Chloride Carbon Dioxide BUN Creatinine Glucose POC Glucose 120 H 121 H Uric Acid Calcium Phosphorus Magnesium AST ALT Total Creatine Kinase CK-MB (CK-2) Troponin T NT-Pro-B Natriuret Pep Total Protein Albumin Triglycerides HDL Cholesterol Urine WBC (Auto) Urine Creatinine Urine Total Protein Vancomycin Trough 05/12/19 05/12/19 05/12/19 04:45 04:45 11:14 WBC RBC Hgb 10.2 L Hct 32.4 L MCV MCH MCHC 31 L RDW 17.2 H Lymph % (Auto) [place] % (Auto) Eos % (Auto) Lymph # [place] # Eos # Seg Neutrophils % Seg Neuts % (Manual) Lymphocytes % (Manual) Monocytes % (Manual) Eosinophils % (Manual) Nucleated RBC % Seg Neutrophils # Seg Neutrophils # Man Lymphocytes # (Manual) Monocytes # (Manual) Eosinophils # (Manual) PT INR APTT POC ABG pH 7.284 L ABG pH POC ABG pCO2 67.8 H POC ABG pO2 ABG pO2 ABG HCO3 ABG O2 Saturation ABG Base Excess ABG Hemoglobin Oxyhemoglobin Sodium Potassium Chloride Carbon Dioxide BUN 63 H Creatinine 2.4 H Glucose 110 H POC Glucose Uric Acid Calcium Phosphorus Magnesium AST ALT Total Creatine Kinase CK-MB (CK-2) Troponin T NT-Pro-B Natriuret Pep Total Protein Albumin Triglycerides HDL Cholesterol Urine WBC (Auto) Urine Creatinine Urine Total Protein Vancomycin Trough 05/12/19 05/12/19 05/13/19 11:44 23:11 04:30 WBC RBC Hgb Hct MCV MCH MCHC RDW Lymph % (Auto) [place] % (Auto) Eos % (Auto) Lymph # [place] # Eos # Seg Neutrophils % Seg Neuts % (Manual) Lymphocytes % (Manual) Monocytes % (Manual) Eosinophils % (Manual) Nucleated RBC % Seg Neutrophils # Seg Neutrophils # Man Lymphocytes # (Manual) Monocytes # (Manual) Eosinophils # (Manual) PT INR APTT POC ABG pH ABG pH 7.288 L POC ABG pCO2 POC ABG pO2 ABG pO2 109.7 H ABG HCO3 30.9 H ABG O2 Saturation ABG Base Excess 3.2 H ABG Hemoglobin 9.6 L Oxyhemoglobin Sodium Potassium Chloride Carbon Dioxide BUN Creatinine Glucose POC Glucose 126 H 147 H Uric Acid Calcium Phosphorus Magnesium AST ALT Total Creatine Kinase CK-MB (CK-2) Troponin T NT-Pro-B Natriuret Pep Total Protein Albumin Triglycerides HDL Cholesterol Urine WBC (Auto) Urine Creatinine Urine Total Protein Vancomycin Trough 05/13/19 05/13/19 05/14/19 06:27 11:58 04:00 WBC RBC 3.16 L Hgb 9.3 L Hct 27.9 L MCV MCH MCHC RDW 17.1 H Lymph % (Auto) [place] % (Auto) Eos % (Auto) Lymph # [place] # Eos # Seg Neutrophils % Seg Neuts % (Manual) Lymphocytes % (Manual) Monocytes % (Manual) Eosinophils % (Manual) Nucleated RBC % Seg Neutrophils # Seg Neutrophils # Man Lymphocytes # (Manual) Monocytes # (Manual) Eosinophils # (Manual) PT INR APTT POC ABG pH ABG pH POC ABG pCO2 POC ABG pO2 ABG pO2 ABG HCO3 ABG O2 Saturation ABG Base Excess ABG Hemoglobin Oxyhemoglobin Sodium Potassium Chloride Carbon Dioxide BUN Creatinine Glucose POC Glucose 113 H 130 H Uric Acid Calcium Phosphorus Magnesium AST ALT Total Creatine Kinase CK-MB (CK-2) Troponin T NT-Pro-B Natriuret Pep Total Protein Albumin Triglycerides HDL Cholesterol Urine WBC (Auto) Urine Creatinine Urine Total Protein Vancomycin Trough 05/14/19 05/14/19 05/14/19 04:00 04:34 05:32 WBC RBC Hgb Hct MCV MCH MCHC RDW Lymph % (Auto) [place] % (Auto) Eos % (Auto) Lymph # [place] # Eos # Seg Neutrophils % Seg Neuts % (Manual) Lymphocytes % (Manual) Monocytes % (Manual) Eosinophils % (Manual) Nucleated RBC % Seg Neutrophils # Seg Neutrophils # Man Lymphocytes # (Manual) Monocytes # (Manual) Eosinophils # (Manual) PT INR APTT POC ABG pH 7.328 L ABG pH POC ABG pCO2 61.7 H POC ABG pO2 ABG pO2 ABG HCO3 ABG O2 Saturation ABG Base Excess ABG Hemoglobin Oxyhemoglobin Sodium 135 L D Potassium Chloride Carbon Dioxide BUN 57 H Creatinine 2.2 H Glucose 115 H POC Glucose 115 H Uric Acid Calcium 8.1 L Phosphorus Magnesium AST ALT Total Creatine Kinase CK-MB (CK-2) Troponin T NT-Pro-B Natriuret Pep Total Protein Albumin Triglycerides HDL Cholesterol Urine WBC (Auto) Urine Creatinine Urine Total Protein Vancomycin Trough 05/14/19 05/15/19 05/15/19 12:11 05:10 05:24 WBC RBC Hgb Hct MCV MCH MCHC RDW Lymph % (Auto) [place] % (Auto) Eos % (Auto) Lymph # [place] # Eos # Seg Neutrophils % Seg Neuts % (Manual) Lymphocytes % (Manual) Monocytes % (Manual) Eosinophils % (Manual) Nucleated RBC % Seg Neutrophils # Seg Neutrophils # Man Lymphocytes # (Manual) Monocytes # (Manual) Eosinophils # (Manual) PT INR APTT POC ABG pH ABG pH 7.342 L POC ABG pCO2 POC ABG pO2 ABG pO2 79.1 L ABG HCO3 28.2 H ABG O2 Saturation ABG Base Excess ABG Hemoglobin 7.0 L Oxyhemoglobin 94.4 L Sodium Potassium Chloride Carbon Dioxide BUN Creatinine Glucose POC Glucose 110 H 116 H Uric Acid Calcium Phosphorus Magnesium AST ALT Total Creatine Kinase CK-MB (CK-2) Troponin T NT-Pro-B Natriuret Pep Total Protein Albumin Triglycerides HDL Cholesterol Urine WBC (Auto) Urine Creatinine Urine Total Protein Vancomycin Trough 05/15/19 05/15/19 05/16/19 09:00 18:12 04:50 WBC RBC Hgb Hct MCV MCH MCHC RDW Lymph % (Auto) [place] % (Auto) Eos % (Auto) Lymph # [place] # Eos # Seg Neutrophils % Seg Neuts % (Manual) Lymphocytes % (Manual) Monocytes % (Manual) Eosinophils % (Manual) Nucleated RBC % Seg Neutrophils # Seg Neutrophils # Man Lymphocytes # (Manual) Monocytes # (Manual) Eosinophils # (Manual) PT INR APTT POC ABG pH ABG pH 7.250 L POC ABG pCO2 POC ABG pO2 ABG pO2 76.4 L ABG HCO3 ABG O2 Saturation 94.6 L ABG Base Excess -3.1 L ABG Hemoglobin 9.7 L Oxyhemoglobin 92.4 L Sodium Potassium Chloride Carbon Dioxide BUN Creatinine Glucose POC Glucose 110 H Uric Acid Calcium Phosphorus Magnesium AST ALT Total Creatine Kinase CK-MB (CK-2) Troponin T NT-Pro-B Natriuret Pep Total Protein Albumin Triglycerides HDL Cholesterol Urine WBC (Auto) Urine Creatinine Urine Total Protein Vancomycin Trough 20.5 H 05/16/19 05/16/19 05/17/19 05:50 05:50 04:20 WBC RBC 3.36 L 3.44 L Hgb 9.4 L 9.3 L Hct 29.1 L 29.7 L MCV MCH 27 L MCHC 31 L RDW 17.6 H 17.6 H Lymph % (Auto) [place] % (Auto) Eos % (Auto) Lymph # [place] # Eos # Seg Neutrophils % Seg Neuts % (Manual) 77.0 H Lymphocytes % (Manual) 5.0 L Monocytes % (Manual) Eosinophils % (Manual) 10.0 H Nucleated RBC % Seg Neutrophils # Seg Neutrophils # Man Lymphocytes # (Manual) 0.5 L Monocytes # (Manual) Eosinophils # (Manual) 0.9 H PT INR APTT POC ABG pH ABG pH POC ABG pCO2 POC ABG pO2 ABG pO2 ABG HCO3 ABG O2 Saturation ABG Base Excess ABG Hemoglobin Oxyhemoglobin Sodium Potassium Chloride Carbon Dioxide BUN 83 H Creatinine 4.4 H D Glucose 118 H POC Glucose Uric Acid Calcium Phosphorus Magnesium AST ALT Total Creatine Kinase CK-MB (CK-2) Troponin T NT-Pro-B Natriuret Pep Total Protein Albumin Triglycerides HDL Cholesterol Urine WBC (Auto) Urine Creatinine Urine Total Protein Vancomycin Trough 05/17/19 05/17/19 05/18/19 04:30 Unknown 01:50 WBC RBC 3.49 L Hgb 9.4 L Hct 30.0 L MCV MCH 27 L MCHC 31 L RDW 17.8 H Lymph % (Auto) 7.9 L [place] % (Auto) 15.4 H Eos % (Auto) 6.3 H Lymph # 0.7 L [place] # 1.4 H Eos # 0.6 H Seg Neutrophils % 70.2 H Seg Neuts % (Manual) Lymphocytes % (Manual) Monocytes % (Manual) Eosinophils % (Manual) Nucleated RBC % Seg Neutrophils # Seg Neutrophils # Man Lymphocytes # (Manual) Monocytes # (Manual) Eosinophils # (Manual) PT INR APTT POC ABG pH ABG pH 7.272 L POC ABG pCO2 POC ABG pO2 ABG pO2 75.7 L ABG HCO3 ABG O2 Saturation 93.8 L ABG Base Excess -3.0 L ABG Hemoglobin 7.8 L Oxyhemoglobin 91.6 L Sodium Potassium 5.2 H Chloride Carbon Dioxide BUN 96 H Creatinine 5.7 H Glucose 112 H POC Glucose Uric Acid Calcium Phosphorus Magnesium AST ALT Total Creatine Kinase CK-MB (CK-2) Troponin T NT-Pro-B Natriuret Pep Total Protein Albumin Triglycerides 173 H HDL Cholesterol Urine WBC (Auto) Urine Creatinine Urine Total Protein Vancomycin Trough 05/18/19 05/18/19 05/18/19 01:50 04:41 05:24 WBC RBC Hgb Hct MCV MCH MCHC RDW Lymph % (Auto) [place] % (Auto) Eos % (Auto) Lymph # [place] # Eos # Seg Neutrophils % Seg Neuts % (Manual) Lymphocytes % (Manual) Monocytes % (Manual) Eosinophils % (Manual) Nucleated RBC % Seg Neutrophils # Seg Neutrophils # Man Lymphocytes # (Manual) Monocytes # (Manual) Eosinophils # (Manual) PT INR APTT POC ABG pH 7.260 L ABG pH POC ABG pCO2 54.9 H POC ABG pO2 ABG pO2 ABG HCO3 ABG O2 Saturation ABG Base Excess ABG Hemoglobin Oxyhemoglobin Sodium Potassium 5.6 H Chloride Carbon Dioxide BUN 104 H Creatinine 6.6 H Glucose 107 H POC Glucose 106 H Uric Acid Calcium Phosphorus Magnesium AST ALT Total Creatine Kinase CK-MB (CK-2) Troponin T NT-Pro-B Natriuret Pep Total Protein Albumin Triglycerides HDL Cholesterol Urine WBC (Auto) Urine Creatinine Urine Total Protein Vancomycin Trough 05/18/19 05/18/19 05/19/19 11:34 23:26 04:06 WBC RBC 3.22 L Hgb 8.8 L Hct 27.3 L MCV MCH 27 L MCHC RDW 17.5 H Lymph % (Auto) [place] % (Auto) Eos % (Auto) Lymph # [place] # Eos # Seg Neutrophils % Seg Neuts % (Manual) 74.0 H Lymphocytes % (Manual) 4.0 L Monocytes % (Manual) 11.0 H Eosinophils % (Manual) 7.0 H Nucleated RBC % 1.0 H Seg Neutrophils # Seg Neutrophils # Man Lymphocytes # (Manual) 0.3 L Monocytes # (Manual) 0.9 H Eosinophils # (Manual) 0.6 H PT INR APTT POC ABG pH ABG pH POC ABG pCO2 POC ABG pO2 ABG pO2 ABG HCO3 ABG O2 Saturation ABG Base Excess ABG Hemoglobin Oxyhemoglobin Sodium Potassium Chloride Carbon Dioxide BUN Creatinine Glucose POC Glucose 152 H 112 H Uric Acid Calcium Phosphorus Magnesium AST ALT Total Creatine Kinase CK-MB (CK-2) Troponin T NT-Pro-B Natriuret Pep Total Protein Albumin Triglycerides HDL Cholesterol Urine WBC (Auto) Urine Creatinine Urine Total Protein Vancomycin Trough 05/19/19 05/19/19 05/20/19 04:06 06:00 04:00 WBC RBC 3.40 L Hgb 9.2 L Hct 28.6 L MCV MCH 27 L MCHC RDW 17.6 H Lymph % (Auto) [place] % (Auto) Eos % (Auto) Lymph # [place] # Eos # Seg Neutrophils % Seg Neuts % (Manual) Lymphocytes % (Manual) 11.0 L Monocytes % (Manual) Eosinophils % (Manual) 14.0 H Nucleated RBC % Seg Neutrophils # Seg Neutrophils # Man Lymphocytes # (Manual) 1.1 L Monocytes # (Manual) Eosinophils # (Manual) 1.4 H PT INR APTT POC ABG pH ABG pH 7.315 L POC ABG pCO2 POC ABG pO2 ABG pO2 ABG HCO3 ABG O2 Saturation ABG Base Excess ABG Hemoglobin 6.7 L Oxyhemoglobin 94.1 L Sodium Potassium 5.2 H Chloride Carbon Dioxide 21 L BUN 110 H Creatinine 7.2 H Glucose POC Glucose Uric Acid Calcium 8.3 L Phosphorus Magnesium AST ALT Total Creatine Kinase CK-MB (CK-2) Troponin T NT-Pro-B Natriuret Pep Total Protein Albumin Triglycerides HDL Cholesterol Urine WBC (Auto) Urine Creatinine Urine Total Protein Vancomycin Trough 05/20/19 05/20/19 05/20/19 04:00 05:48 12:00 WBC RBC Hgb Hct MCV MCH MCHC RDW Lymph % (Auto) [place] % (Auto) Eos % (Auto) Lymph # [place] # Eos # Seg Neutrophils % Seg Neuts % (Manual) Lymphocytes % (Manual) Monocytes % (Manual) Eosinophils % (Manual) Nucleated RBC % Seg Neutrophils # Seg Neutrophils # Man Lymphocytes # (Manual) Monocytes # (Manual) Eosinophils # (Manual) PT INR APTT POC ABG pH ABG pH 7.281 L POC ABG pCO2 POC ABG pO2 ABG pO2 78.7 L ABG HCO3 ABG O2 Saturation 94.5 L ABG Base Excess -3.0 L ABG Hemoglobin 9.9 L Oxyhemoglobin 92.5 L Sodium 136 L Potassium 5.7 H Chloride 96.3 L Carbon Dioxide BUN 125 H Creatinine 8.3 H Glucose 106 H POC Glucose Uric Acid Calcium Phosphorus Magnesium AST ALT Total Creatine Kinase CK-MB (CK-2) Troponin T NT-Pro-B Natriuret Pep Total Protein Albumin Triglycerides HDL Cholesterol Urine WBC (Auto) 26.0 H Urine Creatinine Urine Total Protein Vancomycin Trough 05/21/19 05/21/19 05/21/19 04:33 05:20 Unknown WBC RBC 3.38 L Hgb 9.1 L Hct 28.5 L MCV MCH 27 L MCHC RDW 17.4 H Lymph % (Auto) [place] % (Auto) Eos % (Auto) Lymph # [place] # Eos # Seg Neutrophils % Seg Neuts % (Manual) 71.0 H Lymphocytes % (Manual) 1.0 L Monocytes % (Manual) 11.0 H Eosinophils % (Manual) 6.0 H Nucleated RBC % Seg Neutrophils # Seg Neutrophils # Man Lymphocytes # (Manual) 0.1 L Monocytes # (Manual) 1.0 H Eosinophils # (Manual) 0.6 H PT INR APTT POC ABG pH 7.315 L ABG pH POC ABG pCO2 57.8 H POC ABG pO2 68 L ABG pO2 ABG HCO3 ABG O2 Saturation ABG Base Excess ABG Hemoglobin Oxyhemoglobin Sodium Potassium Chloride 96.3 L Carbon Dioxide BUN 102 H Creatinine 7.0 H Glucose 103 H POC Glucose Uric Acid Calcium Phosphorus Magnesium AST ALT Total Creatine Kinase CK-MB (CK-2) Troponin T NT-Pro-B Natriuret Pep Total Protein Albumin Triglycerides HDL Cholesterol Urine WBC (Auto) Urine Creatinine Urine Total Protein Vancomycin Trough 05/22/19 05/22/19 05/22/19 03:54 06:25 06:25 WBC RBC 3.22 L Hgb 8.6 L Hct 27.0 L MCV MCH 27 L MCHC RDW 17.5 H Lymph % (Auto) [place] % (Auto) 16.2 H Eos % (Auto) 10.8 H Lymph # [place] # 1.3 H Eos # 0.9 H Seg Neutrophils % Seg Neuts % (Manual) Lymphocytes % (Manual) 10.0 L Monocytes % (Manual) 13.0 H Eosinophils % (Manual) 8.0 H Nucleated RBC % Seg Neutrophils # Seg Neutrophils # Man Lymphocytes # (Manual) 0.9 L Monocytes # (Manual) 1.1 H Eosinophils # (Manual) 0.7 H PT INR APTT POC ABG pH 7.313 L ABG pH POC ABG pCO2 55.0 H POC ABG pO2 ABG pO2 ABG HCO3 ABG O2 Saturation ABG Base Excess ABG Hemoglobin Oxyhemoglobin Sodium 135 L Potassium Chloride 94.3 L Carbon Dioxide BUN 117 H Creatinine 7.8 H Glucose POC Glucose Uric Acid Calcium 8.2 L Phosphorus Magnesium AST ALT Total Creatine Kinase CK-MB (CK-2) Troponin T NT-Pro-B Natriuret Pep Total Protein Albumin Triglycerides HDL Cholesterol Urine WBC (Auto) Urine Creatinine Urine Total Protein Vancomycin Trough 05/23/19 05/24/19 05/24/19 05:21 05:00 05:00 WBC RBC 3.18 L Hgb 8.5 L Hct 26.7 L MCV MCH 27 L MCHC RDW 17.9 H Lymph % (Auto) [place] % (Auto) Eos % (Auto) Lymph # [place] # Eos # Seg Neutrophils % Seg Neuts % (Manual) Lymphocytes % (Manual) Monocytes % (Manual) Eosinophils % (Manual) Nucleated RBC % Seg Neutrophils # Seg Neutrophils # Man Lymphocytes # (Manual) Monocytes # (Manual) Eosinophils # (Manual) PT INR APTT POC ABG pH ABG pH POC ABG pCO2 49.7 H POC ABG pO2 73 L ABG pO2 ABG HCO3 ABG O2 Saturation ABG Base Excess ABG Hemoglobin Oxyhemoglobin Sodium Potassium Chloride 95.7 L Carbon Dioxide BUN 97 H Creatinine 6.5 H Glucose POC Glucose Uric Acid Calcium 8.0 L Phosphorus Magnesium AST ALT Total Creatine Kinase CK-MB (CK-2) Troponin T NT-Pro-B Natriuret Pep Total Protein Albumin Triglycerides HDL Cholesterol Urine WBC (Auto) Urine Creatinine Urine Total Protein Vancomycin Trough 05/24/19 05/25/19 05/25/19 06:17 04:22 15:45 WBC RBC 2.98 L Hgb 8.1 L Hct 24.9 L MCV MCH 27 L MCHC RDW 17.8 H Lymph % (Auto) [place] % (Auto) Eos % (Auto) Lymph # [place] # Eos # Seg Neutrophils % Seg Neuts % (Manual) Lymphocytes % (Manual) Monocytes % (Manual) Eosinophils % (Manual) Nucleated RBC % Seg Neutrophils # Seg Neutrophils # Man Lymphocytes # (Manual) Monocytes # (Manual) Eosinophils # (Manual) PT INR APTT POC ABG pH 7.330 L 7.313 L ABG pH POC ABG pCO2 52.5 H 51.1 H POC ABG pO2 77 L ABG pO2 ABG HCO3 ABG O2 Saturation ABG Base Excess ABG Hemoglobin Oxyhemoglobin Sodium Potassium Chloride Carbon Dioxide BUN Creatinine Glucose POC Glucose Uric Acid Calcium Phosphorus Magnesium AST ALT Total Creatine Kinase CK-MB (CK-2) Troponin T NT-Pro-B Natriuret Pep Total Protein Albumin Triglycerides HDL Cholesterol Urine WBC (Auto) Urine Creatinine Urine Total Protein Vancomycin Trough 05/25/19 05/26/19 05/26/19 15:45 04:13 05:00 WBC RBC 3.10 L Hgb 8.4 L Hct 26.0 L MCV MCH 27 L MCHC RDW 17.4 H Lymph % (Auto) [place] % (Auto) Eos % (Auto) Lymph # [place] # Eos # Seg Neutrophils % Seg Neuts % (Manual) Lymphocytes % (Manual) Monocytes % (Manual) Eosinophils % (Manual) Nucleated RBC % Seg Neutrophils # Seg Neutrophils # Man Lymphocytes # (Manual) Monocytes # (Manual) Eosinophils # (Manual) PT INR APTT POC ABG pH 7.295 L ABG pH POC ABG pCO2 56.5 H POC ABG pO2 63 L ABG pO2 ABG HCO3 ABG O2 Saturation ABG Base Excess ABG Hemoglobin Oxyhemoglobin Sodium 136 L Potassium Chloride 96.8 L Carbon Dioxide BUN 83 H Creatinine 5.9 H Glucose POC Glucose Uric Acid Calcium 7.6 L Phosphorus Magnesium AST ALT Total Creatine Kinase CK-MB (CK-2) Troponin T NT-Pro-B Natriuret Pep Total Protein Albumin Triglycerides HDL Cholesterol Urine WBC (Auto) Urine Creatinine Urine Total Protein Vancomycin Trough 05/26/19 05/27/19 05/28/19 05:00 04:48 04:47 WBC RBC Hgb Hct MCV MCH MCHC RDW Lymph % (Auto) [place] % (Auto) Eos % (Auto) Lymph # [place] # Eos # Seg Neutrophils % Seg Neuts % (Manual) Lymphocytes % (Manual) Monocytes % (Manual) Eosinophils % (Manual) Nucleated RBC % Seg Neutrophils # Seg Neutrophils # Man Lymphocytes # (Manual) Monocytes # (Manual) Eosinophils # (Manual) PT INR APTT POC ABG pH 7.323 L ABG pH 7.284 L POC ABG pCO2 56.2 H POC ABG pO2 ABG pO2 71.6 L ABG HCO3 ABG O2 Saturation 92.0 L ABG Base Excess ABG Hemoglobin 7.7 L Oxyhemoglobin 89.9 L Sodium 136 L Potassium Chloride 95.3 L Carbon Dioxide BUN 96 H Creatinine 6.5 H Glucose 108 H POC Glucose Uric Acid Calcium 7.6 L Phosphorus Magnesium AST ALT Total Creatine Kinase CK-MB (CK-2) Troponin T NT-Pro-B Natriuret Pep Total Protein Albumin Triglycerides HDL Cholesterol Urine WBC (Auto) Urine Creatinine Urine Total Protein Vancomycin Trough 05/28/19 05/29/19 05/29/19 12:30 12:47 23:44 WBC RBC Hgb Hct MCV MCH MCHC RDW Lymph % (Auto) [place] % (Auto) Eos % (Auto) Lymph # [place] # Eos # Seg Neutrophils % Seg Neuts % (Manual) Lymphocytes % (Manual) Monocytes % (Manual) Eosinophils % (Manual) Nucleated RBC % Seg Neutrophils # Seg Neutrophils # Man Lymphocytes # (Manual) Monocytes # (Manual) Eosinophils # (Manual) PT INR APTT POC ABG pH ABG pH POC ABG pCO2 POC ABG pO2 ABG pO2 ABG HCO3 ABG O2 Saturation ABG Base Excess ABG Hemoglobin Oxyhemoglobin Sodium 135 L Potassium Chloride 95.3 L Carbon Dioxide BUN 82 H Creatinine 6.0 H Glucose POC Glucose 136 H 159 H Uric Acid Calcium 7.5 L Phosphorus Magnesium AST ALT Total Creatine Kinase CK-MB (CK-2) Troponin T NT-Pro-B Natriuret Pep Total Protein Albumin Triglycerides HDL Cholesterol Urine WBC (Auto) Urine Creatinine Urine Total Protein Vancomycin Trough 05/30/19 05/30/19 05/30/19 04:30 05:38 12:00 WBC RBC 3.01 L Hgb 8.2 L Hct 25.3 L MCV MCH 27 L MCHC RDW 17.5 H Lymph % (Auto) [place] % (Auto) Eos % (Auto) Lymph # [place] # Eos # Seg Neutrophils % Seg Neuts % (Manual) 80.0 H Lymphocytes % (Manual) 10.0 L Monocytes % (Manual) Eosinophils % (Manual) Nucleated RBC % Seg Neutrophils # Seg Neutrophils # Man 8.0 H Lymphocytes # (Manual) 1.0 L Monocytes # (Manual) Eosinophils # (Manual) PT INR APTT POC ABG pH ABG pH POC ABG pCO2 POC ABG pO2 73 L ABG pO2 ABG HCO3 ABG O2 Saturation ABG Base Excess ABG Hemoglobin Oxyhemoglobin Sodium Potassium Chloride Carbon Dioxide BUN Creatinine Glucose POC Glucose 166 H Uric Acid Calcium Phosphorus Magnesium AST ALT Total Creatine Kinase CK-MB (CK-2) Troponin T NT-Pro-B Natriuret Pep Total Protein Albumin Triglycerides HDL Cholesterol Urine WBC (Auto) Urine Creatinine Urine Total Protein Vancomycin Trough 05/30/19 05/31/19 05/31/19 23:45 04:07 13:04 WBC 14.3 H RBC 2.88 L Hgb 7.7 L Hct 23.9 L MCV 83 L MCH 27 L MCHC RDW 17.8 H Lymph % (Auto) [place] % (Auto) Eos % (Auto) Lymph # [place] # Eos # Seg Neutrophils % Seg Neuts % (Manual) 83.0 H Lymphocytes % (Manual) 11.0 L Monocytes % (Manual) Eosinophils % (Manual) Nucleated RBC % Seg Neutrophils # Seg Neutrophils # Man 11.9 H Lymphocytes # (Manual) Monocytes # (Manual) 0.9 H Eosinophils # (Manual) PT INR APTT POC ABG pH ABG pH POC ABG pCO2 47.4 H POC ABG pO2 ABG pO2 ABG HCO3 ABG O2 Saturation ABG Base Excess ABG Hemoglobin Oxyhemoglobin Sodium Potassium Chloride Carbon Dioxide BUN Creatinine Glucose POC Glucose 209 H Uric Acid Calcium Phosphorus Magnesium AST ALT Total Creatine Kinase CK-MB (CK-2) Troponin T NT-Pro-B Natriuret Pep Total Protein Albumin Triglycerides HDL Cholesterol Urine WBC (Auto) Urine Creatinine Urine Total Protein Vancomycin Trough 05/31/19 05/31/19 06/01/19 13:04 16:42 00:15 WBC RBC Hgb Hct MCV MCH MCHC RDW Lymph % (Auto) [place] % (Auto) Eos % (Auto) Lymph # [place] # Eos # Seg Neutrophils % Seg Neuts % (Manual) Lymphocytes % (Manual) Monocytes % (Manual) Eosinophils % (Manual) Nucleated RBC % Seg Neutrophils # Seg Neutrophils # Man Lymphocytes # (Manual) Monocytes # (Manual) Eosinophils # (Manual) PT INR APTT POC ABG pH ABG pH POC ABG pCO2 POC ABG pO2 ABG pO2 ABG HCO3 ABG O2 Saturation ABG Base Excess ABG Hemoglobin Oxyhemoglobin Sodium 129 L Potassium Chloride 88.6 L Carbon Dioxide 19 L BUN 117 H Creatinine 6.7 H Glucose 205 H POC Glucose 228 H 223 H Uric Acid Calcium 7.4 L Phosphorus 7.40 H Magnesium AST 58 H ALT 149 H Total Creatine Kinase CK-MB (CK-2) Troponin T NT-Pro-B Natriuret Pep Total Protein 6.0 L Albumin 2.5 L Triglycerides HDL Cholesterol Urine WBC (Auto) Urine Creatinine Urine Total Protein Vancomycin Trough 06/01/19 06/01/19 06/01/19 04:33 05:27 12:31 WBC RBC Hgb Hct MCV MCH MCHC RDW Lymph % (Auto) [place] % (Auto) Eos % (Auto) Lymph # [place] # Eos # Seg Neutrophils % Seg Neuts % (Manual) Lymphocytes % (Manual) Monocytes % (Manual) Eosinophils % (Manual) Nucleated RBC % Seg Neutrophils # Seg Neutrophils # Man Lymphocytes # (Manual) Monocytes # (Manual) Eosinophils # (Manual) PT INR APTT POC ABG pH ABG pH POC ABG pCO2 POC ABG pO2 ABG pO2 56.9 L ABG HCO3 ABG O2 Saturation 85.9 L ABG Base Excess ABG Hemoglobin 8.1 L Oxyhemoglobin 83.6 L Sodium Potassium Chloride Carbon Dioxide BUN Creatinine Glucose POC Glucose 183 H 217 H Uric Acid Calcium Phosphorus Magnesium AST ALT Total Creatine Kinase CK-MB (CK-2) Troponin T NT-Pro-B Natriuret Pep Total Protein Albumin Triglycerides HDL Cholesterol Urine WBC (Auto) Urine Creatinine Urine Total Protein Vancomycin Trough 06/01/19 06/02/19 06/02/19 18:20 00:00 05:33 WBC RBC Hgb Hct MCV MCH MCHC RDW Lymph % (Auto) [place] % (Auto) Eos % (Auto) Lymph # [place] # Eos # Seg Neutrophils % Seg Neuts % (Manual) Lymphocytes % (Manual) Monocytes % (Manual) Eosinophils % (Manual) Nucleated RBC % Seg Neutrophils # Seg Neutrophils # Man Lymphocytes # (Manual) Monocytes # (Manual) Eosinophils # (Manual) PT INR APTT POC ABG pH ABG pH POC ABG pCO2 POC ABG pO2 ABG pO2 ABG HCO3 ABG O2 Saturation ABG Base Excess ABG Hemoglobin Oxyhemoglobin Sodium Potassium Chloride Carbon Dioxide BUN Creatinine Glucose POC Glucose 265 H 279 H 259 H Uric Acid Calcium Phosphorus Magnesium AST ALT Total Creatine Kinase CK-MB (CK-2) Troponin T NT-Pro-B Natriuret Pep Total Protein Albumin Triglycerides HDL Cholesterol Urine WBC (Auto) Urine Creatinine Urine Total Protein Vancomycin Trough 06/02/19 06/02/19 06/02/19 11:06 11:06 11:42 WBC 13.1 H RBC 2.92 L Hgb 7.9 L Hct 24.4 L MCV MCH 27 L MCHC RDW 17.4 H Lymph % (Auto) [place] % (Auto) Eos % (Auto) Lymph # [place] # Eos # Seg Neutrophils % Seg Neuts % (Manual) 78.0 H Lymphocytes % (Manual) 12.0 L Monocytes % (Manual) 10.0 H Eosinophils % (Manual) Nucleated RBC % Seg Neutrophils # Seg Neutrophils # Man 10.2 H Lymphocytes # (Manual) Monocytes # (Manual) 1.3 H Eosinophils # (Manual) PT INR APTT POC ABG pH ABG pH POC ABG pCO2 POC ABG pO2 ABG pO2 ABG HCO3 ABG O2 Saturation ABG Base Excess ABG Hemoglobin Oxyhemoglobin Sodium 135 L Potassium Chloride 94.7 L Carbon Dioxide 21 L BUN 107 H Creatinine 4.5 H Glucose 286 H POC Glucose 263 H Uric Acid Calcium 7.9 L Phosphorus 6.30 H Magnesium AST ALT 104 H Total Creatine Kinase CK-MB (CK-2) Troponin T NT-Pro-B Natriuret Pep Total Protein 6.0 L Albumin 2.7 L Triglycerides HDL Cholesterol Urine WBC (Auto) Urine Creatinine Urine Total Protein Vancomycin Trough 06/02/19 06/02/19 06/03/19 18:17 23:55 05:30 WBC RBC Hgb Hct MCV MCH MCHC RDW Lymph % (Auto) [place] % (Auto) Eos % (Auto) Lymph # [place] # Eos # Seg Neutrophils % Seg Neuts % (Manual) Lymphocytes % (Manual) Monocytes % (Manual) Eosinophils % (Manual) Nucleated RBC % Seg Neutrophils # Seg Neutrophils # Man Lymphocytes # (Manual) Monocytes # (Manual) Eosinophils # (Manual) PT INR APTT POC ABG pH ABG pH POC ABG pCO2 POC ABG pO2 ABG pO2 ABG HCO3 ABG O2 Saturation ABG Base Excess ABG Hemoglobin Oxyhemoglobin Sodium Potassium Chloride 95.1 L Carbon Dioxide 21 L BUN 119 H Creatinine 4.1 H Glucose 330 H POC Glucose 276 H 244 H Uric Acid Calcium 8.1 L Phosphorus Magnesium AST ALT 98 H Total Creatine Kinase CK-MB (CK-2) Troponin T NT-Pro-B Natriuret Pep Total Protein 5.8 L Albumin 2.8 L Triglycerides HDL Cholesterol Urine WBC (Auto) Urine Creatinine Urine Total Protein Vancomycin Trough 06/03/19 06/03/19 06/03/19 05:30 06:04 09:42 WBC 12.8 H RBC 3.01 L Hgb 8.2 L Hct 25.4 L MCV MCH 27 L MCHC RDW 17.5 H Lymph % (Auto) [place] % (Auto) Eos % (Auto) Lymph # [place] # Eos # Seg Neutrophils % Seg Neuts % (Manual) 78.0 H Lymphocytes % (Manual) 10.0 L Monocytes % (Manual) 12.0 H Eosinophils % (Manual) Nucleated RBC % Seg Neutrophils # Seg Neutrophils # Man 10.0 H Lymphocytes # (Manual) Monocytes # (Manual) 1.5 H Eosinophils # (Manual) PT INR APTT POC ABG pH ABG pH POC ABG pCO2 POC ABG pO2 ABG pO2 ABG HCO3 ABG O2 Saturation ABG Base Excess ABG Hemoglobin Oxyhemoglobin Sodium Potassium Chloride Carbon Dioxide BUN 106 H Creatinine Glucose POC Glucose 254 H Uric Acid Calcium Phosphorus Magnesium AST ALT Total Creatine Kinase CK-MB (CK-2) Troponin T NT-Pro-B Natriuret Pep Total Protein Albumin Triglycerides HDL Cholesterol Urine WBC (Auto) Urine Creatinine Urine Total Protein Vancomycin Trough 06/03/19 06/03/19 06/03/19 12:52 17:25 23:37 WBC RBC Hgb Hct MCV MCH MCHC RDW Lymph % (Auto) [place] % (Auto) Eos % (Auto) Lymph # [place] # Eos # Seg Neutrophils % Seg Neuts % (Manual) Lymphocytes % (Manual) Monocytes % (Manual) Eosinophils % (Manual) Nucleated RBC % Seg Neutrophils # Seg Neutrophils # Man Lymphocytes # (Manual) Monocytes # (Manual) Eosinophils # (Manual) PT INR APTT POC ABG pH ABG pH POC ABG pCO2 POC ABG pO2 ABG pO2 ABG HCO3 ABG O2 Saturation ABG Base Excess ABG Hemoglobin Oxyhemoglobin Sodium Potassium Chloride Carbon Dioxide BUN Creatinine Glucose POC Glucose 274 H 285 H 310 H Uric Acid Calcium Phosphorus Magnesium AST ALT Total Creatine Kinase CK-MB (CK-2) Troponin T NT-Pro-B Natriuret Pep Total Protein Albumin Triglycerides HDL Cholesterol Urine WBC (Auto) Urine Creatinine Urine Total Protein Vancomycin Trough 06/04/19 06/04/19 06/04/19 04:57 05:03 11:50 WBC RBC Hgb Hct MCV MCH MCHC RDW Lymph % (Auto) [place] % (Auto) Eos % (Auto) Lymph # [place] # Eos # Seg Neutrophils % Seg Neuts % (Manual) Lymphocytes % (Manual) Monocytes % (Manual) Eosinophils % (Manual) Nucleated RBC % Seg Neutrophils # Seg Neutrophils # Man Lymphocytes # (Manual) Monocytes # (Manual) Eosinophils # (Manual) PT INR APTT POC ABG pH 7.488 H ABG pH POC ABG pCO2 POC ABG pO2 ABG pO2 ABG HCO3 ABG O2 Saturation ABG Base Excess ABG Hemoglobin Oxyhemoglobin Sodium Potassium Chloride Carbon Dioxide BUN Creatinine Glucose POC Glucose 275 H 279 H Uric Acid Calcium Phosphorus Magnesium AST ALT Total Creatine Kinase CK-MB (CK-2) Troponin T NT-Pro-B Natriuret Pep Total Protein Albumin Triglycerides HDL Cholesterol Urine WBC (Auto) Urine Creatinine Urine Total Protein Vancomycin Trough 06/04/19 06/04/19 06/04/19 18:32 22:03 23:55 WBC RBC Hgb Hct MCV MCH MCHC RDW Lymph % (Auto) [place] % (Auto) Eos % (Auto) Lymph # [place] # Eos # Seg Neutrophils % Seg Neuts % (Manual) Lymphocytes % (Manual) Monocytes % (Manual) Eosinophils % (Manual) Nucleated RBC % Seg Neutrophils # Seg Neutrophils # Man Lymphocytes # (Manual) Monocytes # (Manual) Eosinophils # (Manual) PT INR APTT POC ABG pH ABG pH POC ABG pCO2 POC ABG pO2 ABG pO2 ABG HCO3 ABG O2 Saturation ABG Base Excess ABG Hemoglobin Oxyhemoglobin Sodium Potassium Chloride Carbon Dioxide BUN Creatinine Glucose POC Glucose 267 H 307 H 292 H Uric Acid Calcium Phosphorus Magnesium AST ALT Total Creatine Kinase CK-MB (CK-2) Troponin T NT-Pro-B Natriuret Pep Total Protein Albumin Triglycerides HDL Cholesterol Urine WBC (Auto) Urine Creatinine Urine Total Protein Vancomycin Trough 06/05/19 06/05/19 06/05/19 03:52 06:41 12:29 WBC RBC Hgb Hct MCV MCH MCHC RDW Lymph % (Auto) [place] % (Auto) Eos % (Auto) Lymph # [place] # Eos # Seg Neutrophils % Seg Neuts % (Manual) Lymphocytes % (Manual) Monocytes % (Manual) Eosinophils % (Manual) Nucleated RBC % Seg Neutrophils # Seg Neutrophils # Man Lymphocytes # (Manual) Monocytes # (Manual) Eosinophils # (Manual) PT INR APTT POC ABG pH 7.462 H ABG pH POC ABG pCO2 POC ABG pO2 ABG pO2 ABG HCO3 ABG O2 Saturation ABG Base Excess ABG Hemoglobin Oxyhemoglobin Sodium Potassium Chloride Carbon Dioxide BUN Creatinine Glucose POC Glucose 369 H 265 H Uric Acid Calcium Phosphorus Magnesium AST ALT Total Creatine Kinase CK-MB (CK-2) Troponin T NT-Pro-B Natriuret Pep Total Protein Albumin Triglycerides HDL Cholesterol Urine WBC (Auto) Urine Creatinine Urine Total Protein Vancomycin Trough 06/05/19 06/05/19 06/05/19 18:20 21:42 23:21 WBC RBC Hgb Hct MCV MCH MCHC RDW Lymph % (Auto) [place] % (Auto) Eos % (Auto) Lymph # [place] # Eos # Seg Neutrophils % Seg Neuts % (Manual) Lymphocytes % (Manual) Monocytes % (Manual) Eosinophils % (Manual) Nucleated RBC % Seg Neutrophils # Seg Neutrophils # Man Lymphocytes # (Manual) Monocytes # (Manual) Eosinophils # (Manual) PT INR APTT POC ABG pH ABG pH POC ABG pCO2 POC ABG pO2 ABG pO2 ABG HCO3 ABG O2 Saturation ABG Base Excess ABG Hemoglobin Oxyhemoglobin Sodium Potassium Chloride Carbon Dioxide BUN Creatinine Glucose POC Glucose 249 H 246 H 274 H Uric Acid Calcium Phosphorus Magnesium AST ALT Total Creatine Kinase CK-MB (CK-2) Troponin T NT-Pro-B Natriuret Pep Total Protein Albumin Triglycerides HDL Cholesterol Urine WBC (Auto) Urine Creatinine Urine Total Protein Vancomycin Trough 06/06/19 06/06/19 06/06/19 04:00 05:49 11:34 WBC 18.1 H RBC 3.53 L Hgb 9.5 L Hct 30.3 L MCV MCH 27 L MCHC 31 L RDW 19.5 H Lymph % (Auto) [place] % (Auto) Eos % (Auto) Lymph # [place] # Eos # Seg Neutrophils % Seg Neuts % (Manual) 87.0 H Lymphocytes % (Manual) 3.0 L Monocytes % (Manual) 8.0 H Eosinophils % (Manual) Nucleated RBC % Seg Neutrophils # Seg Neutrophils # Man 15.7 H Lymphocytes # (Manual) 0.5 L Monocytes # (Manual) 1.4 H Eosinophils # (Manual) PT INR APTT POC ABG pH ABG pH 7.472 H POC ABG pCO2 POC ABG pO2 ABG pO2 76.4 L ABG HCO3 28.1 H ABG O2 Saturation ABG Base Excess 4.3 H ABG Hemoglobin 12.5 L Oxyhemoglobin 93.8 L Sodium Potassium Chloride Carbon Dioxide BUN Creatinine Glucose POC Glucose 340 H Uric Acid Calcium Phosphorus Magnesium AST ALT Total Creatine Kinase CK-MB (CK-2) Troponin T NT-Pro-B Natriuret Pep Total Protein Albumin Triglycerides HDL Cholesterol Urine WBC (Auto) Urine Creatinine Urine Total Protein Vancomycin Trough 06/06/19 06/06/19 06/06/19 11:34 12:11 18:10 WBC RBC Hgb Hct MCV MCH MCHC RDW Lymph % (Auto) [place] % (Auto) Eos % (Auto) Lymph # [place] # Eos # Seg Neutrophils % Seg Neuts % (Manual) Lymphocytes % (Manual) Monocytes % (Manual) Eosinophils % (Manual) Nucleated RBC % Seg Neutrophils # Seg Neutrophils # Man Lymphocytes # (Manual) Monocytes # (Manual) Eosinophils # (Manual) PT INR APTT POC ABG pH ABG pH POC ABG pCO2 POC ABG pO2 ABG pO2 ABG HCO3 ABG O2 Saturation ABG Base Excess ABG Hemoglobin Oxyhemoglobin Sodium Potassium Chloride Carbon Dioxide BUN 70 H Creatinine Glucose 310 H POC Glucose 283 H 301 H Uric Acid Calcium 8.3 L Phosphorus 4.60 H Magnesium AST ALT 75 H Total Creatine Kinase CK-MB (CK-2) Troponin T NT-Pro-B Natriuret Pep Total Protein 5.6 L Albumin 2.9 L Triglycerides HDL Cholesterol Urine WBC (Auto) Urine Creatinine Urine Total Protein Vancomycin Trough 06/06/19 06/06/19 06/07/19 22:21 23:16 04:30 WBC RBC Hgb Hct MCV MCH MCHC RDW Lymph % (Auto) [place] % (Auto) Eos % (Auto) Lymph # [place] # Eos # Seg Neutrophils % Seg Neuts % (Manual) Lymphocytes % (Manual) Monocytes % (Manual) Eosinophils % (Manual) Nucleated RBC % Seg Neutrophils # Seg Neutrophils # Man Lymphocytes # (Manual) Monocytes # (Manual) Eosinophils # (Manual) PT INR APTT POC ABG pH ABG pH 7.480 H POC ABG pCO2 POC ABG pO2 ABG pO2 77.0 L ABG HCO3 27.2 H ABG O2 Saturation ABG Base Excess 3.5 H ABG Hemoglobin 7.1 L Oxyhemoglobin 94.2 L Sodium Potassium Chloride Carbon Dioxide BUN Creatinine Glucose POC Glucose 289 H 343 H Uric Acid Calcium Phosphorus Magnesium AST ALT Total Creatine Kinase CK-MB (CK-2) Troponin T NT-Pro-B Natriuret Pep Total Protein Albumin Triglycerides HDL Cholesterol Urine WBC (Auto) Urine Creatinine Urine Total Protein Vancomycin Trough 06/07/19 06/07/19 06/07/19 05:15 12:52 18:41 WBC RBC Hgb Hct MCV MCH MCHC RDW Lymph % (Auto) [place] % (Auto) Eos % (Auto) Lymph # [place] # Eos # Seg Neutrophils % Seg Neuts % (Manual) Lymphocytes % (Manual) Monocytes % (Manual) Eosinophils % (Manual) Nucleated RBC % Seg Neutrophils # Seg Neutrophils # Man Lymphocytes # (Manual) Monocytes # (Manual) Eosinophils # (Manual) PT INR APTT POC ABG pH ABG pH POC ABG pCO2 POC ABG pO2 ABG pO2 ABG HCO3 ABG O2 Saturation ABG Base Excess ABG Hemoglobin Oxyhemoglobin Sodium Potassium Chloride Carbon Dioxide BUN Creatinine Glucose POC Glucose 307 H 226 H 187 H Uric Acid Calcium Phosphorus Magnesium AST ALT Total Creatine Kinase CK-MB (CK-2) Troponin T NT-Pro-B Natriuret Pep Total Protein Albumin Triglycerides HDL Cholesterol Urine WBC (Auto) Urine Creatinine Urine Total Protein Vancomycin Trough 06/07/19 06/07/19 06/08/19 22:54 23:46 04:20 WBC 16.0 H RBC Hgb 10.0 L Hct 32.1 L MCV MCH 27 L MCHC 31 L RDW 19.4 H Lymph % (Auto) [place] % (Auto) Eos % (Auto) Lymph # [place] # Eos # Seg Neutrophils % Seg Neuts % (Manual) 87.0 H Lymphocytes % (Manual) 7.0 L Monocytes % (Manual) Eosinophils % (Manual) Nucleated RBC % Seg Neutrophils # Seg Neutrophils # Man 13.9 H Lymphocytes # (Manual) 1.1 L Monocytes # (Manual) 1.0 H Eosinophils # (Manual) PT INR APTT POC ABG pH ABG pH POC ABG pCO2 POC ABG pO2 ABG pO2 ABG HCO3 ABG O2 Saturation ABG Base Excess ABG Hemoglobin Oxyhemoglobin Sodium Potassium Chloride Carbon Dioxide BUN Creatinine Glucose POC Glucose 199 H 172 H Uric Acid Calcium Phosphorus Magnesium AST ALT Total Creatine Kinase CK-MB (CK-2) Troponin T NT-Pro-B Natriuret Pep Total Protein Albumin Triglycerides HDL Cholesterol Urine WBC (Auto) Urine Creatinine Urine Total Protein Vancomycin Trough 06/08/19 06/08/19 06/08/19 04:20 05:15 11:31 WBC RBC Hgb Hct MCV MCH MCHC RDW Lymph % (Auto) [place] % (Auto) Eos % (Auto) Lymph # [place] # Eos # Seg Neutrophils % Seg Neuts % (Manual) Lymphocytes % (Manual) Monocytes % (Manual) Eosinophils % (Manual) Nucleated RBC % Seg Neutrophils # Seg Neutrophils # Man Lymphocytes # (Manual) Monocytes # (Manual) Eosinophils # (Manual) PT INR APTT POC ABG pH ABG pH POC ABG pCO2 POC ABG pO2 ABG pO2 ABG HCO3 ABG O2 Saturation ABG Base Excess ABG Hemoglobin Oxyhemoglobin Sodium 146 H D Potassium Chloride Carbon Dioxide BUN 77 H Creatinine Glucose 205 H POC Glucose 209 H 181 H Uric Acid Calcium Phosphorus Magnesium AST ALT 66 H Total Creatine Kinase CK-MB (CK-2) Troponin T NT-Pro-B Natriuret Pep Total Protein 5.5 L Albumin 2.9 L Triglycerides HDL Cholesterol Urine WBC (Auto) Urine Creatinine Urine Total Protein Vancomycin Trough 06/08/19 06/08/19 06/09/19 17:28 23:24 05:20 WBC RBC Hgb Hct MCV MCH MCHC RDW Lymph % (Auto) [place] % (Auto) Eos % (Auto) Lymph # [place] # Eos # Seg Neutrophils % Seg Neuts % (Manual) Lymphocytes % (Manual) Monocytes % (Manual) Eosinophils % (Manual) Nucleated RBC % Seg Neutrophils # Seg Neutrophils # Man Lymphocytes # (Manual) Monocytes # (Manual) Eosinophils # (Manual) PT INR APTT POC ABG pH ABG pH POC ABG pCO2 POC ABG pO2 ABG pO2 ABG HCO3 ABG O2 Saturation ABG Base Excess ABG Hemoglobin Oxyhemoglobin Sodium Potassium Chloride Carbon Dioxide BUN Creatinine Glucose POC Glucose 215 H 200 H 173 H Uric Acid Calcium Phosphorus Magnesium AST ALT Total Creatine Kinase CK-MB (CK-2) Troponin T NT-Pro-B Natriuret Pep Total Protein Albumin Triglycerides HDL Cholesterol Urine WBC (Auto) Urine Creatinine Urine Total Protein Vancomycin Trough 06/09/19 06/09/19 06/09/19 12:07 18:32 23:51 WBC RBC Hgb Hct MCV MCH MCHC RDW Lymph % (Auto) [place] % (Auto) Eos % (Auto) Lymph # [place] # Eos # Seg Neutrophils % Seg Neuts % (Manual) Lymphocytes % (Manual) Monocytes % (Manual) Eosinophils % (Manual) Nucleated RBC % Seg Neutrophils # Seg Neutrophils # Man Lymphocytes # (Manual) Monocytes # (Manual) Eosinophils # (Manual) PT INR APTT POC ABG pH ABG pH POC ABG pCO2 POC ABG pO2 ABG pO2 ABG HCO3 ABG O2 Saturation ABG Base Excess ABG Hemoglobin Oxyhemoglobin Sodium Potassium Chloride Carbon Dioxide BUN Creatinine Glucose POC Glucose 117 H 169 H 147 H Uric Acid Calcium Phosphorus Magnesium AST ALT Total Creatine Kinase CK-MB (CK-2) Troponin T NT-Pro-B Natriuret Pep Total Protein Albumin Triglycerides HDL Cholesterol Urine WBC (Auto) Urine Creatinine Urine Total Protein Vancomycin Trough 06/10/19 06/10/19 06/10/19 05:45 05:45 06:01 WBC 14.6 H RBC Hgb 9.9 L Hct 32.2 L MCV MCH 27 L MCHC 31 L RDW 19.6 H Lymph % (Auto) 10.5 L [place] % (Auto) 9.4 H Eos % (Auto) Lymph # [place] # 1.4 H Eos # Seg Neutrophils % 79.9 H Seg Neuts % (Manual) Lymphocytes % (Manual) Monocytes % (Manual) Eosinophils % (Manual) Nucleated RBC % Seg Neutrophils # 11.7 H Seg Neutrophils # Man Lymphocytes # (Manual) Monocytes # (Manual) Eosinophils # (Manual) PT INR APTT POC ABG pH ABG pH POC ABG pCO2 POC ABG pO2 ABG pO2 ABG HCO3 ABG O2 Saturation ABG Base Excess ABG Hemoglobin Oxyhemoglobin Sodium 150 H Potassium Chloride 108.3 H Carbon Dioxide BUN 49 H Creatinine Glucose 172 H POC Glucose 165 H Uric Acid Calcium Phosphorus Magnesium 1.40 L AST ALT Total Creatine Kinase CK-MB (CK-2) Troponin T NT-Pro-B Natriuret Pep Total Protein Albumin Triglycerides HDL Cholesterol Urine WBC (Auto) Urine Creatinine Urine Total Protein Vancomycin Trough 06/10/19 06/10/19 06/11/19 12:11 18:30 08:34 WBC RBC Hgb Hct MCV MCH MCHC RDW Lymph % (Auto) [place] % (Auto) Eos % (Auto) Lymph # [place] # Eos # Seg Neutrophils % Seg Neuts % (Manual) Lymphocytes % (Manual) Monocytes % (Manual) Eosinophils % (Manual) Nucleated RBC % Seg Neutrophils # Seg Neutrophils # Man Lymphocytes # (Manual) Monocytes # (Manual) Eosinophils # (Manual) PT INR APTT POC ABG pH ABG pH POC ABG pCO2 POC ABG pO2 ABG pO2 ABG HCO3 ABG O2 Saturation ABG Base Excess ABG Hemoglobin Oxyhemoglobin Sodium 154 H Potassium Chloride 111.6 H Carbon Dioxide BUN 41 H Creatinine Glucose 147 H POC Glucose 150 H 154 H Uric Acid Calcium Phosphorus Magnesium AST ALT Total Creatine Kinase CK-MB (CK-2) Troponin T NT-Pro-B Natriuret Pep Total Protein Albumin Triglycerides HDL Cholesterol Urine WBC (Auto) Urine Creatinine Urine Total Protein Vancomycin Trough 06/11/19 12:33 WBC RBC Hgb Hct MCV MCH MCHC RDW Lymph % (Auto) [place] % (Auto) Eos % (Auto) Lymph # [place] # Eos # Seg Neutrophils % Seg Neuts % (Manual) Lymphocytes % (Manual) Monocytes % (Manual) Eosinophils % (Manual) Nucleated RBC % Seg Neutrophils # Seg Neutrophils # Man Lymphocytes # (Manual) Monocytes # (Manual) Eosinophils # (Manual) PT INR APTT POC ABG pH ABG pH POC ABG pCO2 POC ABG pO2 ABG pO2 ABG HCO3 ABG O2 Saturation ABG Base Excess ABG Hemoglobin Oxyhemoglobin Sodium Potassium Chloride Carbon Dioxide BUN Creatinine Glucose POC Glucose 185 H Uric Acid Calcium Phosphorus Magnesium AST ALT Total Creatine Kinase CK-MB (CK-2) Troponin T NT-Pro-B Natriuret Pep Total Protein Albumin Triglycerides HDL Cholesterol Urine WBC (Auto) Urine Creatinine Urine Total Protein Vancomycin Trough
[2019-06-12] MEDS: INSULIN LISPRO 100 UNIT/ML SUB-Q SCH ×4 (00:24→19:50)
[2019-06-12] MEDS: hydrALAZINE 20 MG/1 ML INJ IV PRN ×3 (00:54→06:09)
[2019-06-12] MEDS: DEXTROSE 5% IN WATER 1,000 ML IV SCH ×3 (01:24→20:41)
[2019-06-12] MEDS ORDERED: dilTIAZem 25 MG/5 ML INJ IV ONE (03:43)
--- NOTE | 2019-06-12 04:26 | Event Note ---
Date: 06/12/19 Patient SBP remains in 200's despite receiving IV hydralazine and labetalol. Patient given IV diltiazem with slight reduction in SBP to 190s however approximately 5 minutes later SBP back in 200's. Will transfer to ICU and placed on diltiazem drip
[2019-06-12 04:28] LABS: Basophils % (Auto) 0.2 % (0.0-1.8); Hematocrit 31.7 % (35.5-45.6); Hemoglobin 9.9 gm/dl (11.8-15.2); Lymphocytes # (Auto) 1.3 K/mm3 (1.2-5.4); Lymphocytes % (Auto) 10.6 % (13.4-35.0); Mean Corpuscular HGB Conc 31 % (32-34); Mean Corpuscular Volume 88 fl (84-94); Monocytes % (Auto) 8.6 % (0.0-7.3); Platelet Count 159 K/mm3 (140-440); Red Blood Count 3.61 M/mm3 (3.65-5.03); Red Cell Distribution Width 19.3 % (13.2-15.2)
[2019-06-12 04:41] LABS: BUN/Creatinine Ratio 49; Blood Urea Nitrogen 34 mg/dL (9-20); Calcium 8.7 mg/dL (8.4-10.2); Hemolysis Index 7
[2019-06-12] MEDS ORDERED: dilTIAZem/D5W 100 MG/100 ML BAG IV SCH (05:00)
--- NOTE | 2019-06-12 05:31 | XRay Report ---
SUPINE ABDOMEN INDICATION: ngt placement verification. COMPARISON: 05/31/2019 FINDINGS: Nasogastric tube tip is at the diaphragmatic hiatus, this may be within the very proximal stomach. Si de-port is at the expected location of the gastroesophageal junction. IMPRESSION: 1. Feeding tube as above. Signer Name: Juancarlos Kohli MD Signed: 06/12/2019 5:27 AM Workstation Name: [email or web address]
[2019-06-12] MEDS: methylPREDNISolone Sod Succinate 40 MG/1 ML INJ IV SCH ×3 (06:09→21:00)
[2019-06-12] MEDS: niCARdipine 50 MG in SODIUM CHLORIDE 0.9% 250ML 230 ML IV SCH ×4 (07:10→20:56)
[2019-06-12] MEDS ORDERED: MAGNESIUM SULFATE 2 GM/50 ML BAG IV ONE (07:56)
[2019-06-12] MEDS: levETIRAcetam 750 MG in DEXTROSE 5% IN WATER 100 ML IV SCH ×2 (09:30→21:00)
[2019-06-12] MEDS: ENOXAPARIN 30 MG/0.3 ML INJ SUB-Q SCH (09:34)
--- NOTE | 2019-06-12 10:43 | XRay Report ---
ABDOMEN 1 VIEW 10:18 AM INDICATION / CLINICAL INFORMATION: Revised NGT placement. COMPARISON: 5:08 AM FINDINGS: TUBES / LINES: Esophagogastric tube has been advanced with the tip in the distal stomach. BOWEL GAS PATTERN: No significant abnormality. FREE AIR / EXTRALUMINAL GAS: None seen. ADDITIONAL FINDINGS: No significant additional findings. IMPRESSION: 1. Esophagogastric tube in expected position. Signer Name: Brii Prabhakar MD Signed: 06/12/2019 10:38 AM Workstation Name: [email or web address]
[2019-06-12] MEDS: FAMOTIDINE 20 MG TAB PO SCH (10:50)
[2019-06-12] MEDS: MINOXIDIL 2.5 MG TAB PO SCH ×2 (10:50→21:00)
[2019-06-12] MEDS ORDERED: ENALAPRILAT 2.5 MG/2 ML INJ IV ONE (11:00)
--- NOTE | 2019-06-12 11:34 | Progress Note ---
Assessment and Plan 34 y/o male with acute hypoxic, hypercapnic respiratory failure currently ventilated and sedated, now with persistent fevers and seizure and on HD 06/12/2019: Started HCTZ 50 daily and Labetal 100 TID. Already on Clonidine p atch. Will start to wean drip. PT/OT. Feeds through NG now that this is in place. Will need speech re-evaluation. 06/11/2019: Bipap at night and PRN. Na levels are increasing. Agree with D5W. Unable to place DH, several nurses tried. Will ask speech to come by and reassess now that patient is more willing to cooperate. . Continue PT/OT, sat up on side of bed yesterday. Continue IMCU monitoring for now. As stated below, patient was intubated for 37 days. 2. 37 days of intubation. Extubated on 06/07/2019 Subjective Date of service: 06/12/19 Principal diagnosis: HF; acute hypoxemic resp failure, SIRS, CARLA Interval history: Moved back to ICU this am secondary to elevated BP and requiring Cardene drip. Awake and alert. Following commands. Objective Vital Signs - 12hr 06/11/19 06/11/19 06/11/19 23:31 23:39 23:42 Temperature Pulse Rate 82 78 67 Pulse Rate [ From Monitor] Respiratory 20 24 20 Rate Blood Pressure 207/114 207/114 207/114 O2 Sat by Pulse 93 93 99 Oximetry 06/11/19 06/12/19 06/12/19 23:57 00:00 00:31 Temperature 97.6 F Pulse Rate 69 66 Pulse Rate [ 71 From Monitor] Respiratory 20 19 Rate Blood Pressure 211/123 211/123 O2 Sat by Pulse 100 100 Oximetry 06/12/19 06/12/19 06/12/19 00:54 01:00 01:20 Temperature Pulse Rate 70 77 86 Pulse Rate [ From Monitor] Respiratory 11 L Rate Blood Pressure 218/132 217/121 187/104 O2 Sat by Pulse 98 Oximetry 06/12/19 06/12/19 06/12/19 01:31 02:00 02:31 Temperature Pulse Rate 77 80 80 Pulse Rate [ From Monitor] Respiratory 14 14 15 Rate Blood Pressure 187/108 198/113 197/110 O2 Sat by Pulse 99 99 96 Oximetry 06/12/19 06/12/19 06/12/19 03:00 03:01 03:31 Temperature 97.6 F Pulse Rate 86 81 Pulse Rate [ From Monitor] Respiratory 19 26 H Rate Blood Pressure 197/110 197/117 O2 Sat by Pulse 99 100 Oximetry 06/12/19 06/12/19 06/12/19 03:45 03:52 04:00 Temperature 97.8 F Pulse Rate 77 72 Pulse Rate [ From Monitor] Respiratory 13 10 L Rate Blood Pressure 188/120 220/110 O2 Sat by Pulse 99 100 Oximetry 06/12/19 06/12/19 06/12/19 04:06 04:15 04:31 Temperature Pulse Rate 77 84 103 H Pulse Rate [ From Monitor] Respiratory 17 26 H Rate Blood Pressure 220/110 185/101 186/107 O2 Sat by Pulse 98 98 Oximetry 06/12/19 06/12/19 06/12/19 04:45 05:00 06:00 Temperature Pulse Rate 90 76 84 Pulse Rate [ 84 From Monitor] Respiratory 19 Rate Blood Pressure 201/110 185/106 O2 Sat by Pulse 97 100 95 Oximetry 06/12/19 06/12/19 06/12/19 06:09 06:46 07:00 Temperature Pulse Rate 78 84 Pulse Rate [ From Monitor] Respiratory 20 22 Rate Blood Pressure 213/111 241/109 O2 Sat by Pulse 98 93 Oximetry 06/12/19 06/12/19 06/12/19 07:15 07:30 07:45 Temperature Pulse Rate 86 86 86 Pulse Rate [ From Monitor] Respiratory 17 20 16 Rate Blood Pressure 241/109 224/86 228/99 O2 Sat by Pulse 92 96 95 Oximetry 06/12/19 06/12/19 06/12/19 08:00 08:15 08:30 Temperature 99 F Pulse Rate 88 92 H 88 Pulse Rate [ From Monitor] Respiratory 18 24 16 Rate Blood Pressure 198/102 219/117 230/99 O2 Sat by Pulse 98 97 97 Oximetry 06/12/19 06/12/19 06/12/19 08:45 09:01 09:15 Temperature Pulse Rate 93 H 95 H 95 H Pulse Rate [ From Monitor] Respiratory 19 30 H 17 Rate Blood Pressure 216/101 218/93 197/101 O2 Sat by Pulse 97 95 96 Oximetry 06/12/19 06/12/19 06/12/19 09:31 09:45 10:00 Temperature Pulse Rate 95 H 94 H 91 H Pulse Rate [ From Monitor] Respiratory 28 H 22 13 Rate Blood Pressure 227/98 206/92 229/145 O2 Sat by Pulse 94 97 92 Oximetry 06/12/19 06/12/19 06/12/19 10:15 10:30 10:45 Temperature Pulse Rate 95 H 93 H 90 Pulse Rate [ From Monitor] Respiratory 12 21 21 Rate Blood Pressure 229/145 220/106 200/104 O2 Sat by Pulse 96 95 96 Oximetry 06/12/19 11:00 Temperature Pulse Rate 92 H Pulse Rate [ From Monitor] Respiratory 18 Rate Blood Pressure 207/90 O2 Sat by Pulse 97 Oximetry Constitutional: no acute distress, other (morbidly obese male, on vent, orally intubated) Eyes: non-icteric ENT: oropharynx moist Neck: other (extremely large in circumference) Effort: normal Ascultation: Bilateral: diminished breath sounds (secondary to body habitus) Cardiovascular: regular rate and rhythm (no mrg) Gastrointestinal: normoactive bowel sounds, soft, non-tender Integumentary: other (L hand is wrapped) Extremities: no cyanosis, pink and warm, other (1+ generalized edema) Neurologic: unable to assess Psychiatric: other (unable to assess) CBC and BMP: 06/12/19 03:21 06/12/19 03:21 ABG, PT/INR, D-dimer: ABG POC ABG pH 7.462 (7.35-7.45) H 06/05/19 03:52 ABG pH 7.480 pH Units (7.350-7.450) H 06/07/19 04:30 POC ABG pCO2 39.8 (35-45) 06/05/19 03:52 ABG pCO2 37.4 mm Hg 06/07/19 04:30 POC ABG pO2 86 (80-105) 06/05/19 03:52 ABG pO2 77.0 mm Hg (80.0-90.0) L 06/07/19 04:30 POC ABG HCO3 28.4 (22-26 mml/L) 06/05/19 03:52 POC ABG Total CO2 30 (23-27mmol/L) 06/05/19 03:52 POC ABG O2 Sat 97 06/05/19 03:52 ABG O2 Saturation 96.7 % (95.0-99.0) 06/07/19 04:30 PT/INR, D-dimer PT 15.4 Sec. (12.2-14.9) H 05/01/19 Unknown INR 1.23 (0.87-1.13) H 05/01/19 Unknown Abnormal lab findings: Abnormal Labs 05/01/19 05/01/19 05/01/19 17:50 19:26 22:36 WBC RBC Hgb Hct MCV MCH MCHC RDW Lymph % (Auto) Ogle % (Auto) Eos % (Auto) Lymph # Ogle # Eos # Seg Neutrophils % Seg Neuts % (Manual) Lymphocytes % (Manual) Monocytes % (Manual) Eosinophils % (Manual) Nucleated RBC % Seg Neutrophils # Seg Neutrophils # Man Lymphocytes # (Manual) Monocytes # (Manual) Eosinophils # (Manual) PT INR APTT POC ABG pH 7.272 L 7.331 L ABG pH POC ABG pCO2 52.8 H POC ABG pO2 ABG pO2 ABG HCO3 ABG O2 Saturation ABG Base Excess ABG Hemoglobin Oxyhemoglobin Sodium 136 L Potassium 6.5 H* Chloride 97.2 L Carbon Dioxide BUN 60 H Creatinine Glucose 113 H POC Glucose Uric Acid Calcium Phosphorus Magnesium 2.40 H AST 139 H ALT 154 H Total Creatine Kinase CK-MB (CK-2) Troponin T NT-Pro-B Natriuret Pep Total Protein Albumin 3.8 L Triglycerides HDL Cholesterol Urine WBC (Auto) Urine Creatinine Urine Total Protein Vancomycin Trough 05/01/19 05/01/19 05/01/19 Unknown Unknown Unknown WBC 16.1 H RBC Hgb Hct MCV MCH MCHC RDW 17.2 H Lymph % (Auto) Ogle % (Auto) 9.6 H Eos % (Auto) Lymph # Ogle # 1.5 H Eos # Seg Neutrophils % 73.0 H Seg Neuts % (Manual) Lymphocytes % (Manual) Monocytes % (Manual) Eosinophils % (Manual) Nucleated RBC % Seg Neutrophils # 11.7 H Seg Neutrophils # Man Lymphocytes # (Manual) Monocytes # (Manual) Eosinophils # (Manual) PT 15.4 H INR 1.23 H APTT 22.7 L POC ABG pH ABG pH POC ABG pCO2 POC ABG pO2 ABG pO2 ABG HCO3 ABG O2 Saturation ABG Base Excess ABG Hemoglobin Oxyhemoglobin Sodium Potassium Chloride Carbon Dioxide BUN Creatinine Glucose POC Glucose Uric Acid Calcium Phosphorus Magnesium AST ALT Total Creatine Kinase CK-MB (CK-2) Troponin T NT-Pro-B Natriuret Pep 6831 H Total Protein Albumin Triglycerides HDL Cholesterol Urine WBC (Auto) Urine Creatinine Urine Total Protein Vancomycin Trough 05/01/19 05/02/19 05/02/19 Unknown 00:06 00:06 WBC RBC Hgb Hct MCV MCH MCHC RDW Lymph % (Auto) Ogle % (Auto) Eos % (Auto) Lymph # Ogle # Eos # Seg Neutrophils % Seg Neuts % (Manual) Lymphocytes % (Manual) Monocytes % (Manual) Eosinophils % (Manual) Nucleated RBC % Seg Neutrophils # Seg Neutrophils # Man Lymphocytes # (Manual) Monocytes # (Manual) Eosinophils # (Manual) PT INR APTT POC ABG pH ABG pH POC ABG pCO2 POC ABG pO2 ABG pO2 ABG HCO3 ABG O2 Saturation ABG Base Excess ABG Hemoglobin Oxyhemoglobin Sodium Potassium Chloride Carbon Dioxide BUN Creatinine Glucose POC Glucose Uric Acid Calcium Phosphorus 4.90 H Magnesium AST ALT Total Creatine Kinase 226 H CK-MB (CK-2) 5.7 H Troponin T 0.044 H NT-Pro-B Natriuret Pep Total Protein Albumin Triglycerides 182 H HDL Cholesterol 18 L Urine WBC (Auto) Urine Creatinine Urine Total Protein Vancomycin Trough 05/02/19 05/02/19 05/02/19 02:08 04:40 04:41 WBC 17.6 H RBC Hgb Hct MCV MCH 27 L MCHC RDW 17.4 H Lymph % (Auto) 10.2 L Ogle % (Auto) 11.0 H Eos % (Auto) Lymph # Ogle # 1.9 H Eos # Seg Neutrophils % 78.0 H Seg Neuts % (Manual) Lymphocytes % (Manual) Monocytes % (Manual) Eosinophils % (Manual) Nucleated RBC % Seg Neutrophils # 13.8 H Seg Neutrophils # Man Lymphocytes # (Manual) Monocytes # (Manual) Eosinophils # (Manual) PT INR APTT POC ABG pH ABG pH POC ABG pCO2 46.8 H POC ABG pO2 63 L ABG pO2 ABG HCO3 ABG O2 Saturation ABG Base Excess ABG Hemoglobin Oxyhemoglobin Sodium Potassium Chloride 96.3 L Carbon Dioxide BUN 63 H Creatinine 1.7 H Glucose POC Glucose Uric Acid Calcium Phosphorus Magnesium AST ALT Total Creatine Kinase CK-MB (CK-2) Troponin T NT-Pro-B Natriuret Pep Total Protein Albumin Triglycerides HDL Cholesterol Urine WBC (Auto) Urine Creatinine Urine Total Protein Vancomycin Trough 05/02/19 05/02/19 05/02/19 04:41 04:41 16:05 WBC RBC Hgb Hct MCV MCH MCHC RDW Lymph % (Auto) Ogle % (Auto) Eos % (Auto) Lymph # Ogle # Eos # Seg Neutrophils % Seg Neuts % (Manual) Lymphocytes % (Manual) Monocytes % (Manual) Eosinophils % (Manual) Nucleated RBC % Seg Neutrophils # Seg Neutrophils # Man Lymphocytes # (Manual) Monocytes # (Manual) Eosinophils # (Manual) PT INR APTT POC ABG pH ABG pH POC ABG pCO2 POC ABG pO2 ABG pO2 66.6 L ABG HCO3 31.9 H ABG O2 Saturation 92.5 L ABG Base Excess 5.8 H ABG Hemoglobin 13.3 L Oxyhemoglobin 90.6 L Sodium Potassium Chloride 97.2 L Carbon Dioxide BUN 61 H Creatinine 1.8 H Glucose POC Glucose Uric Acid Calcium Phosphorus Magnesium AST ALT Total Creatine Kinase CK-MB (CK-2) 5.2 H Troponin T 0.067 H D NT-Pro-B Natriuret Pep Total Protein Albumin Triglycerides HDL Cholesterol Urine WBC (Auto) Urine Creatinine Urine Total Protein Vancomycin Trough 05/02/19 05/03/19 05/03/19 20:39 04:35 05:05 WBC 11.8 H RBC Hgb Hct MCV MCH 27 L MCHC 31 L RDW 17.2 H Lymph % (Auto) Ogle % (Auto) Eos % (Auto) Lymph # Ogle # Eos # Seg Neutrophils % Seg Neuts % (Manual) Lymphocytes % (Manual) Monocytes % (Manual) Eosinophils % (Manual) Nucleated RBC % Seg Neutrophils # Seg Neutrophils # Man Lymphocytes # (Manual) Monocytes # (Manual) Eosinophils # (Manual) PT INR APTT POC ABG pH ABG pH POC ABG pCO2 53.6 H 54.0 H POC ABG pO2 55 L 63 L ABG pO2 ABG HCO3 ABG O2 Saturation ABG Base Excess ABG Hemoglobin Oxyhemoglobin Sodium Potassium Chloride Carbon Dioxide BUN Creatinine Glucose POC Glucose Uric Acid Calcium Phosphorus Magnesium AST ALT Total Creatine Kinase CK-MB (CK-2) Troponin T NT-Pro-B Natriuret Pep Total Protein Albumin Triglycerides HDL Cholesterol Urine WBC (Auto) Urine Creatinine Urine Total Protein Vancomycin Trough 05/03/19 05/03/19 05/03/19 05:05 10:55 16:48 WBC RBC Hgb Hct MCV MCH MCHC RDW Lymph % (Auto) Ogle % (Auto) Eos % (Auto) Lymph # Ogle # Eos # Seg Neutrophils % Seg Neuts % (Manual) Lymphocytes % (Manual) Monocytes % (Manual) Eosinophils % (Manual) Nucleated RBC % Seg Neutrophils # Seg Neutrophils # Man Lymphocytes # (Manual) Monocytes # (Manual) Eosinophils # (Manual) PT INR APTT POC ABG pH 7.604 H ABG pH POC ABG pCO2 POC ABG pO2 58 L ABG pO2 ABG HCO3 ABG O2 Saturation ABG Base Excess ABG Hemoglobin Oxyhemoglobin Sodium Potassium Chloride Carbon Dioxide BUN 52 H Creatinine 1.9 H Glucose 103 H POC Glucose Uric Acid Calcium Phosphorus Magnesium AST ALT Total Creatine Kinase CK-MB (CK-2) Troponin T NT-Pro-B Natriuret Pep Total Protein Albumin Triglycerides HDL Cholesterol Urine WBC (Auto) 33.0 H Urine Creatinine Urine Total Protein Vancomycin Trough 05/04/19 05/04/19 05/04/19 04:49 06:50 06:50 WBC 16.0 H RBC Hgb Hct MCV MCH 27 L MCHC 31 L RDW 17.8 H Lymph % (Auto) Ogle % (Auto) Eos % (Auto) Lymph # Ogle # Eos # Seg Neutrophils % Seg Neuts % (Manual) Lymphocytes % (Manual) Monocytes % (Manual) Eosinophils % (Manual) Nucleated RBC % Seg Neutrophils # Seg Neutrophils # Man Lymphocytes # (Manual) Monocytes # (Manual) Eosinophils # (Manual) PT INR APTT POC ABG pH 7.273 L ABG pH POC ABG pCO2 POC ABG pO2 ABG pO2 ABG HCO3 ABG O2 Saturation ABG Base Excess ABG Hemoglobin Oxyhemoglobin Sodium 148 H Potassium 5.5 H Chloride Carbon Dioxide BUN 53 H Creatinine 3.3 H D Glucose 106 H POC Glucose Uric Acid Calcium 8.3 L Phosphorus Magnesium AST ALT Total Creatine Kinase CK-MB (CK-2) Troponin T NT-Pro-B Natriuret Pep Total Protein Albumin Triglycerides HDL Cholesterol Urine WBC (Auto) Urine Creatinine Urine Total Protein Vancomycin Trough 05/05/19 05/05/19 05/05/19 00:05 04:30 05:00 WBC RBC Hgb Hct MCV MCH MCHC RDW Lymph % (Auto) Ogle % (Auto) Eos % (Auto) Lymph # Ogle # Eos # Seg Neutrophils % Seg Neuts % (Manual) Lymphocytes % (Manual) Monocytes % (Manual) Eosinophils % (Manual) Nucleated RBC % Seg Neutrophils # Seg Neutrophils # Man Lymphocytes # (Manual) Monocytes # (Manual) Eosinophils # (Manual) PT INR APTT POC ABG pH 7.225 L ABG pH POC ABG pCO2 > 70 H POC ABG pO2 ABG pO2 ABG HCO3 ABG O2 Saturation ABG Base Excess ABG Hemoglobin Oxyhemoglobin Sodium 151 H Potassium 5.1 H Chloride Carbon Dioxide BUN 64 H Creatinine 3.5 H Glucose 117 H POC Glucose 141 H Uric Acid Calcium 7.5 L Phosphorus Magnesium AST 93 H ALT 65 H Total Creatine Kinase CK-MB (CK-2) Troponin T NT-Pro-B Natriuret Pep Total Protein Albumin 2.9 L Triglycerides HDL Cholesterol Urine WBC (Auto) Urine Creatinine Urine Total Protein Vancomycin Trough 05/05/19 05/05/19 05/05/19 05:00 12:02 17:46 WBC 12.0 H RBC Hgb 11.3 L Hct MCV MCH 27 L MCHC 30 L RDW 18.4 H Lymph % (Auto) 7.9 L Ogle % (Auto) 10.2 H Eos % (Auto) Lymph # 1.0 L Ogle # 1.2 H Eos # Seg Neutrophils % 80.8 H Seg Neuts % (Manual) Lymphocytes % (Manual) Monocytes % (Manual) Eosinophils % (Manual) Nucleated RBC % Seg Neutrophils # 9.7 H Seg Neutrophils # Man Lymphocytes # (Manual) Monocytes # (Manual) Eosinophils # (Manual) PT INR APTT POC ABG pH ABG pH POC ABG pCO2 POC ABG pO2 ABG pO2 ABG HCO3 ABG O2 Saturation ABG Base Excess ABG Hemoglobin Oxyhemoglobin Sodium Potassium Chloride Carbon Dioxide BUN Creatinine Glucose POC Glucose 125 H 112 H Uric Acid Calcium Phosphorus Magnesium AST ALT Total Creatine Kinase CK-MB (CK-2) Troponin T NT-Pro-B Natriuret Pep Total Protein Albumin Triglycerides HDL Cholesterol Urine WBC (Auto) Urine Creatinine Urine Total Protein Vancomycin Trough 05/05/19 05/06/19 05/06/19 23:42 03:58 04:45 WBC 11.4 H RBC Hgb 10.7 L Hct 34.2 L MCV MCH 27 L MCHC 31 L RDW 16.9 H Lymph % (Auto) Ogle % (Auto) Eos % (Auto) Lymph # Ogle # Eos # Seg Neutrophils % Seg Neuts % (Manual) Lymphocytes % (Manual) Monocytes % (Manual) Eosinophils % (Manual) Nucleated RBC % Seg Neutrophils # Seg Neutrophils # Man Lymphocytes # (Manual) Monocytes # (Manual) Eosinophils # (Manual) PT INR APTT POC ABG pH ABG pH POC ABG pCO2 62.4 H POC ABG pO2 111 H ABG pO2 ABG HCO3 ABG O2 Saturation ABG Base Excess ABG Hemoglobin Oxyhemoglobin Sodium Potassium Chloride Carbon Dioxide BUN Creatinine Glucose POC Glucose 128 H Uric Acid Calcium Phosphorus Magnesium AST ALT Total Creatine Kinase CK-MB (CK-2) Troponin T NT-Pro-B Natriuret Pep Total Protein Albumin Triglycerides HDL Cholesterol Urine WBC (Auto) Urine Creatinine Urine Total Protein Vancomycin Trough 05/06/19 05/06/19 05/06/19 04:45 05:33 12:30 WBC RBC Hgb Hct MCV MCH MCHC RDW Lymph % (Auto) Ogle % (Auto) Eos % (Auto) Lymph # Ogle # Eos # Seg Neutrophils % Seg Neuts % (Manual) Lymphocytes % (Manual) Monocytes % (Manual) Eosinophils % (Manual) Nucleated RBC % Seg Neutrophils # Seg Neutrophils # Man Lymphocytes # (Manual) Monocytes # (Manual) Eosinophils # (Manual) PT INR APTT POC ABG pH ABG pH POC ABG pCO2 POC ABG pO2 ABG pO2 ABG HCO3 ABG O2 Saturation ABG Base Excess ABG Hemoglobin Oxyhemoglobin Sodium 149 H Potassium Chloride Carbon Dioxide 31 H BUN 67 H Creatinine 3.2 H Glucose 125 H POC Glucose 117 H 116 H Uric Acid Calcium 7.5 L Phosphorus Magnesium AST ALT Total Creatine Kinase CK-MB (CK-2) Troponin T NT-Pro-B Natriuret Pep Total Protein Albumin Triglycerides HDL Cholesterol Urine WBC (Auto) Urine Creatinine Urine Total Protein Vancomycin Trough 05/06/19 05/06/19 05/07/19 18:34 23:16 05:22 WBC RBC Hgb Hct MCV MCH MCHC RDW Lymph % (Auto) Ogle % (Auto) Eos % (Auto) Lymph # Ogle # Eos # Seg Neutrophils % Seg Neuts % (Manual) Lymphocytes % (Manual) Monocytes % (Manual) Eosinophils % (Manual) Nucleated RBC % Seg Neutrophils # Seg Neutrophils # Man Lymphocytes # (Manual) Monocytes # (Manual) Eosinophils # (Manual) PT INR APTT POC ABG pH ABG pH POC ABG pCO2 POC ABG pO2 ABG pO2 ABG HCO3 ABG O2 Saturation ABG Base Excess ABG Hemoglobin Oxyhemoglobin Sodium Potassium Chloride Carbon Dioxide BUN Creatinine Glucose POC Glucose 128 H 143 H 166 H Uric Acid Calcium Phosphorus Magnesium AST ALT Total Creatine Kinase CK-MB (CK-2) Troponin T NT-Pro-B Natriuret Pep Total Protein Albumin Triglycerides HDL Cholesterol Urine WBC (Auto) Urine Creatinine Urine Total Protein Vancomycin Trough 05/07/19 05/07/19 05/07/19 06:33 07:03 09:35 WBC RBC Hgb Hct MCV MCH MCHC RDW Lymph % (Auto) Ogle % (Auto) Eos % (Auto) Lymph # Ogle # Eos # Seg Neutrophils % Seg Neuts % (Manual) Lymphocytes % (Manual) Monocytes % (Manual) Eosinophils % (Manual) Nucleated RBC % Seg Neutrophils # Seg Neutrophils # Man Lymphocytes # (Manual) Monocytes # (Manual) Eosinophils # (Manual) PT INR APTT POC ABG pH 7.263 L 7.288 L ABG pH POC ABG pCO2 POC ABG pO2 51 L 56 L ABG pO2 ABG HCO3 ABG O2 Saturation ABG Base Excess ABG Hemoglobin Oxyhemoglobin Sodium Potassium Chloride Carbon Dioxide BUN 76 H Creatinine 3.2 H Glucose 147 H POC Glucose Uric Acid Calcium 7.9 L Phosphorus Magnesium AST ALT Total Creatine Kinase CK-MB (CK-2) Troponin T NT-Pro-B Natriuret Pep Total Protein Albumin Triglycerides HDL Cholesterol Urine WBC (Auto) Urine Creatinine Urine Total Protein Vancomycin Trough 05/07/19 05/07/19 05/07/19 09:35 12:17 13:45 WBC 13.4 H RBC Hgb 11.6 L Hct MCV MCH 27 L MCHC 31 L RDW 17.5 H Lymph % (Auto) Ogle % (Auto) Eos % (Auto) Lymph # Ogle # Eos # Seg Neutrophils % Seg Neuts % (Manual) Lymphocytes % (Manual) Monocytes % (Manual) Eosinophils % (Manual) Nucleated RBC % Seg Neutrophils # Seg Neutrophils # Man Lymphocytes # (Manual) Monocytes # (Manual) Eosinophils # (Manual) PT INR APTT POC ABG pH ABG pH POC ABG pCO2 POC ABG pO2 ABG pO2 ABG HCO3 ABG O2 Saturation ABG Base Excess ABG Hemoglobin Oxyhemoglobin Sodium Potassium Chloride Carbon Dioxide BUN Creatinine Glucose POC Glucose 130 H Uric Acid 18.0 H Calcium Phosphorus Magnesium AST ALT Total Creatine Kinase CK-MB (CK-2) Troponin T NT-Pro-B Natriuret Pep Total Protein Albumin Triglycerides HDL Cholesterol Urine WBC (Auto) Urine Creatinine Urine Total Protein Vancomycin Trough 05/07/19 05/07/19 05/08/19 17:39 22:40 05:06 WBC RBC Hgb Hct MCV MCH MCHC RDW Lymph % (Auto) Ogle % (Auto) Eos % (Auto) Lymph # Ogle # Eos # Seg Neutrophils % Seg Neuts % (Manual) Lymphocytes % (Manual) Monocytes % (Manual) Eosinophils % (Manual) Nucleated RBC % Seg Neutrophils # Seg Neutrophils # Man Lymphocytes # (Manual) Monocytes # (Manual) Eosinophils # (Manual) PT INR APTT POC ABG pH ABG pH POC ABG pCO2 POC ABG pO2 ABG pO2 ABG HCO3 ABG O2 Saturation ABG Base Excess ABG Hemoglobin Oxyhemoglobin Sodium Potassium Chloride Carbon Dioxide BUN Creatinine Glucose POC Glucose 116 H 148 H Uric Acid Calcium Phosphorus Magnesium AST ALT Total Creatine Kinase CK-MB (CK-2) Troponin T NT-Pro-B Natriuret Pep Total Protein Albumin Triglycerides HDL Cholesterol Urine WBC (Auto) Urine Creatinine 292.8 H Urine Total Protein 269 H Vancomycin Trough 05/08/19 05/08/19 05/08/19 05:32 11:28 13:48 WBC RBC Hgb Hct MCV MCH MCHC RDW Lymph % (Auto) Ogle % (Auto) Eos % (Auto) Lymph # Ogle # Eos # Seg Neutrophils % Seg Neuts % (Manual) Lymphocytes % (Manual) Monocytes % (Manual) Eosinophils % (Manual) Nucleated RBC % Seg Neutrophils # Seg Neutrophils # Man Lymphocytes # (Manual) Monocytes # (Manual) Eosinophils # (Manual) PT INR APTT POC ABG pH ABG pH POC ABG pCO2 45.4 H POC ABG pO2 64 L ABG pO2 ABG HCO3 ABG O2 Saturation ABG Base Excess ABG Hemoglobin Oxyhemoglobin Sodium Potassium Chloride Carbon Dioxide BUN 73 H Creatinine 2.7 H Glucose 127 H POC Glucose 107 H Uric Acid Calcium 7.6 L Phosphorus Magnesium AST ALT Total Creatine Kinase CK-MB (CK-2) Troponin T NT-Pro-B Natriuret Pep Total Protein Albumin Triglycerides HDL Cholesterol Urine WBC (Auto) Urine Creatinine Urine Total Protein Vancomycin Trough 05/08/19 05/09/19 05/09/19 17:48 04:50 04:53 WBC RBC 3.07 L Hgb 8.5 L D Hct 29.3 L D MCV 96 H MCH MCHC 29 L RDW 18.1 H Lymph % (Auto) Ogle % (Auto) Eos % (Auto) Lymph # Ogle # Eos # Seg Neutrophils % Seg Neuts % (Manual) Lymphocytes % (Manual) Monocytes % (Manual) Eosinophils % (Manual) Nucleated RBC % Seg Neutrophils # Seg Neutrophils # Man Lymphocytes # (Manual) Monocytes # (Manual) Eosinophils # (Manual) PT INR APTT POC ABG pH 7.316 L ABG pH POC ABG pCO2 66.0 H POC ABG pO2 69 L ABG pO2 ABG HCO3 ABG O2 Saturation ABG Base Excess ABG Hemoglobin Oxyhemoglobin Sodium Potassium Chloride Carbon Dioxide BUN Creatinine Glucose POC Glucose 155 H Uric Acid Calcium Phosphorus Magnesium AST ALT Total Creatine Kinase CK-MB (CK-2) Troponin T NT-Pro-B Natriuret Pep Total Protein Albumin Triglycerides HDL Cholesterol Urine WBC (Auto) Urine Creatinine Urine Total Protein Vancomycin Trough 05/09/19 05/09/19 05/09/19 05:46 07:24 12:10 WBC RBC Hgb Hct MCV MCH MCHC RDW Lymph % (Auto) Ogle % (Auto) Eos % (Auto) Lymph # Ogle # Eos # Seg Neutrophils % Seg Neuts % (Manual) Lymphocytes % (Manual) Monocytes % (Manual) Eosinophils % (Manual) Nucleated RBC % Seg Neutrophils # Seg Neutrophils # Man Lymphocytes # (Manual) Monocytes # (Manual) Eosinophils # (Manual) PT INR APTT POC ABG pH ABG pH POC ABG pCO2 POC ABG pO2 ABG pO2 ABG HCO3 ABG O2 Saturation ABG Base Excess ABG Hemoglobin Oxyhemoglobin Sodium Potassium Chloride Carbon Dioxide BUN 73 H Creatinine 2.4 H Glucose 153 H POC Glucose 123 H 148 H Uric Acid Calcium 8.2 L Phosphorus Magnesium AST 45 H ALT Total Creatine Kinase CK-MB (CK-2) Troponin T NT-Pro-B Natriuret Pep Total Protein 6.0 L Albumin 1.9 L Triglycerides HDL Cholesterol Urine WBC (Auto) Urine Creatinine Urine Total Protein Vancomycin Trough 05/09/19 05/09/19 05/10/19 18:23 23:26 04:52 WBC RBC Hgb Hct MCV MCH MCHC RDW Lymph % (Auto) Ogle % (Auto) Eos % (Auto) Lymph # Ogle # Eos # Seg Neutrophils % Seg Neuts % (Manual) Lymphocytes % (Manual) Monocytes % (Manual) Eosinophils % (Manual) Nucleated RBC % Seg Neutrophils # Seg Neutrophils # Man Lymphocytes # (Manual) Monocytes # (Manual) Eosinophils # (Manual) PT INR APTT POC ABG pH 7.305 L ABG pH POC ABG pCO2 62.6 H POC ABG pO2 ABG pO2 ABG HCO3 ABG O2 Saturation ABG Base Excess ABG Hemoglobin Oxyhemoglobin Sodium Potassium Chloride Carbon Dioxide BUN Creatinine Glucose POC Glucose 147 H 121 H Uric Acid Calcium Phosphorus Magnesium AST ALT Total Creatine Kinase CK-MB (CK-2) Troponin T NT-Pro-B Natriuret Pep Total Protein Albumin Triglycerides HDL Cholesterol Urine WBC (Auto) Urine Creatinine Urine Total Protein Vancomycin Trough 05/10/19 05/10/19 05/10/19 05:00 05:00 05:50 WBC RBC Hgb 10.3 L Hct 33.7 L MCV MCH 27 L MCHC 31 L RDW 17.0 H Lymph % (Auto) Ogle % (Auto) Eos % (Auto) Lymph # Ogle # Eos # Seg Neutrophils % Seg Neuts % (Manual) Lymphocytes % (Manual) Monocytes % (Manual) Eosinophils % (Manual) Nucleated RBC % Seg Neutrophils # Seg Neutrophils # Man Lymphocytes # (Manual) Monocytes # (Manual) Eosinophils # (Manual) PT INR APTT POC ABG pH ABG pH POC ABG pCO2 POC ABG pO2 ABG pO2 ABG HCO3 ABG O2 Saturation ABG Base Excess ABG Hemoglobin Oxyhemoglobin Sodium 147 H Potassium Chloride Carbon Dioxide BUN 70 H Creatinine 2.6 H Glucose 155 H POC Glucose 158 H Uric Acid Calcium 8.2 L Phosphorus Magnesium AST ALT Total Creatine Kinase CK-MB (CK-2) Troponin T NT-Pro-B Natriuret Pep Total Protein 6.1 L Albumin 2.5 L Triglycerides HDL Cholesterol Urine WBC (Auto) Urine Creatinine Urine Total Protein Vancomycin Trough 05/10/19 05/11/19 05/11/19 13:14 07:26 11:40 WBC RBC Hgb Hct MCV MCH MCHC RDW Lymph % (Auto) Ogle % (Auto) Eos % (Auto) Lymph # Ogle # Eos # Seg Neutrophils % Seg Neuts % (Manual) Lymphocytes % (Manual) Monocytes % (Manual) Eosinophils % (Manual) Nucleated RBC % Seg Neutrophils # Seg Neutrophils # Man Lymphocytes # (Manual) Monocytes # (Manual) Eosinophils # (Manual) PT INR APTT POC ABG pH ABG pH POC ABG pCO2 48.0 H POC ABG pO2 58 L ABG pO2 ABG HCO3 ABG O2 Saturation ABG Base Excess ABG Hemoglobin Oxyhemoglobin Sodium 147 H Potassium Chloride 107.2 H Carbon Dioxide BUN 67 H Creatinine 2.6 H Glucose 121 H POC Glucose 159 H Uric Acid Calcium Phosphorus Magnesium AST ALT Total Creatine Kinase CK-MB (CK-2) Troponin T NT-Pro-B Natriuret Pep Total Protein Albumin Triglycerides HDL Cholesterol Urine WBC (Auto) Urine Creatinine Urine Total Protein Vancomycin Trough 05/11/19 05/11/19 05/12/19 18:13 23:46 04:40 WBC RBC Hgb Hct MCV MCH MCHC RDW Lymph % (Auto) Ogle % (Auto) Eos % (Auto) Lymph # Ogle # Eos # Seg Neutrophils % Seg Neuts % (Manual) Lymphocytes % (Manual) Monocytes % (Manual) Eosinophils % (Manual) Nucleated RBC % Seg Neutrophils # Seg Neutrophils # Man Lymphocytes # (Manual) Monocytes # (Manual) Eosinophils # (Manual) PT INR APTT POC ABG pH ABG pH 7.264 L POC ABG pCO2 POC ABG pO2 ABG pO2 66.8 L ABG HCO3 31.0 H ABG O2 Saturation 92.0 L ABG Base Excess ABG Hemoglobin 10.3 L Oxyhemoglobin 90.1 L Sodium Potassium Chloride Carbon Dioxide BUN Creatinine Glucose POC Glucose 120 H 121 H Uric Acid Calcium Phosphorus Magnesium AST ALT Total Creatine Kinase CK-MB (CK-2) Troponin T NT-Pro-B Natriuret Pep Total Protein Albumin Triglycerides HDL Cholesterol Urine WBC (Auto) Urine Creatinine Urine Total Protein Vancomycin Trough 05/12/19 05/12/19 05/12/19 04:45 04:45 11:14 WBC RBC Hgb 10.2 L Hct 32.4 L MCV MCH MCHC 31 L RDW 17.2 H Lymph % (Auto) Ogle % (Auto) Eos % (Auto) Lymph # Ogle # Eos # Seg Neutrophils % Seg Neuts % (Manual) Lymphocytes % (Manual) Monocytes % (Manual) Eosinophils % (Manual) Nucleated RBC % Seg Neutrophils # Seg Neutrophils # Man Lymphocytes # (Manual) Monocytes # (Manual) Eosinophils # (Manual) PT INR APTT POC ABG pH 7.284 L ABG pH POC ABG pCO2 67.8 H POC ABG pO2 ABG pO2 ABG HCO3 ABG O2 Saturation ABG Base Excess ABG Hemoglobin Oxyhemoglobin Sodium Potassium Chloride Carbon Dioxide BUN 63 H Creatinine 2.4 H Glucose 110 H POC Glucose Uric Acid Calcium Phosphorus Magnesium AST ALT Total Creatine Kinase CK-MB (CK-2) Troponin T NT-Pro-B Natriuret Pep Total Protein Albumin Triglycerides HDL Cholesterol Urine WBC (Auto) Urine Creatinine Urine Total Protein Vancomycin Trough 05/12/19 05/12/19 05/13/19 11:44 23:11 04:30 WBC RBC Hgb Hct MCV MCH MCHC RDW Lymph % (Auto) Ogle % (Auto) Eos % (Auto) Lymph # Ogle # Eos # Seg Neutrophils % Seg Neuts % (Manual) Lymphocytes % (Manual) Monocytes % (Manual) Eosinophils % (Manual) Nucleated RBC % Seg Neutrophils # Seg Neutrophils # Man Lymphocytes # (Manual) Monocytes # (Manual) Eosinophils # (Manual) PT INR APTT POC ABG pH ABG pH 7.288 L POC ABG pCO2 POC ABG pO2 ABG pO2 109.7 H ABG HCO3 30.9 H ABG O2 Saturation ABG Base Excess 3.2 H ABG Hemoglobin 9.6 L Oxyhemoglobin Sodium Potassium Chloride Carbon Dioxide BUN Creatinine Glucose POC Glucose 126 H 147 H Uric Acid Calcium Phosphorus Magnesium AST ALT Total Creatine Kinase CK-MB (CK-2) Troponin T NT-Pro-B Natriuret Pep Total Protein Albumin Triglycerides HDL Cholesterol Urine WBC (Auto) Urine Creatinine Urine Total Protein Vancomycin Trough 05/13/19 05/13/19 05/14/19 06:27 11:58 04:00 WBC RBC 3.16 L Hgb 9.3 L Hct 27.9 L MCV MCH MCHC RDW 17.1 H Lymph % (Auto) Ogle % (Auto) Eos % (Auto) Lymph # Ogle # Eos # Seg Neutrophils % Seg Neuts % (Manual) Lymphocytes % (Manual) Monocytes % (Manual) Eosinophils % (Manual) Nucleated RBC % Seg Neutrophils # Seg Neutrophils # Man Lymphocytes # (Manual) Monocytes # (Manual) Eosinophils # (Manual) PT INR APTT POC ABG pH ABG pH POC ABG pCO2 POC ABG pO2 ABG pO2 ABG HCO3 ABG O2 Saturation ABG Base Excess ABG Hemoglobin Oxyhemoglobin Sodium Potassium Chloride Carbon Dioxide BUN Creatinine Glucose POC Glucose 113 H 130 H Uric Acid Calcium Phosphorus Magnesium AST ALT Total Creatine Kinase CK-MB (CK-2) Troponin T NT-Pro-B Natriuret Pep Total Protein Albumin Triglycerides HDL Cholesterol Urine WBC (Auto) Urine Creatinine Urine Total Protein Vancomycin Trough 05/14/19 05/14/19 05/14/19 04:00 04:34 05:32 WBC RBC Hgb Hct MCV MCH MCHC RDW Lymph % (Auto) Ogle % (Auto) Eos % (Auto) Lymph # Ogle # Eos # Seg Neutrophils % Seg Neuts % (Manual) Lymphocytes % (Manual) Monocytes % (Manual) Eosinophils % (Manual) Nucleated RBC % Seg Neutrophils # Seg Neutrophils # Man Lymphocytes # (Manual) Monocytes # (Manual) Eosinophils # (Manual) PT INR APTT POC ABG pH 7.328 L ABG pH POC ABG pCO2 61.7 H POC ABG pO2 ABG pO2 ABG HCO3 ABG O2 Saturation ABG Base Excess ABG Hemoglobin Oxyhemoglobin Sodium 135 L D Potassium Chloride Carbon Dioxide BUN 57 H Creatinine 2.2 H Glucose 115 H POC Glucose 115 H Uric Acid Calcium 8.1 L Phosphorus Magnesium AST ALT Total Creatine Kinase CK-MB (CK-2) Troponin T NT-Pro-B Natriuret Pep Total Protein Albumin Triglycerides HDL Cholesterol Urine WBC (Auto) Urine Creatinine Urine Total Protein Vancomycin Trough 05/14/19 05/15/19 05/15/19 12:11 05:10 05:24 WBC RBC Hgb Hct MCV MCH MCHC RDW Lymph % (Auto) Ogle % (Auto) Eos % (Auto) Lymph # Ogle # Eos # Seg Neutrophils % Seg Neuts % (Manual) Lymphocytes % (Manual) Monocytes % (Manual) Eosinophils % (Manual) Nucleated RBC % Seg Neutrophils # Seg Neutrophils # Man Lymphocytes # (Manual) Monocytes # (Manual) Eosinophils # (Manual) PT INR APTT POC ABG pH ABG pH 7.342 L POC ABG pCO2 POC ABG pO2 ABG pO2 79.1 L ABG HCO3 28.2 H ABG O2 Saturation ABG Base Excess ABG Hemoglobin 7.0 L Oxyhemoglobin 94.4 L Sodium Potassium Chloride Carbon Dioxide BUN Creatinine Glucose POC Glucose 110 H 116 H Uric Acid Calcium Phosphorus Magnesium AST ALT Total Creatine Kinase CK-MB (CK-2) Troponin T NT-Pro-B Natriuret Pep Total Protein Albumin Triglycerides HDL Cholesterol Urine WBC (Auto) Urine Creatinine Urine Total Protein Vancomycin Trough 05/15/19 05/15/19 05/16/19 09:00 18:12 04:50 WBC RBC Hgb Hct MCV MCH MCHC RDW Lymph % (Auto) Ogle % (Auto) Eos % (Auto) Lymph # Ogle # Eos # Seg Neutrophils % Seg Neuts % (Manual) Lymphocytes % (Manual) Monocytes % (Manual) Eosinophils % (Manual) Nucleated RBC % Seg Neutrophils # Seg Neutrophils # Man Lymphocytes # (Manual) Monocytes # (Manual) Eosinophils # (Manual) PT INR APTT POC ABG pH ABG pH 7.250 L POC ABG pCO2 POC ABG pO2 ABG pO2 76.4 L ABG HCO3 ABG O2 Saturation 94.6 L ABG Base Excess -3.1 L ABG Hemoglobin 9.7 L Oxyhemoglobin 92.4 L Sodium Potassium Chloride Carbon Dioxide BUN Creatinine Glucose POC Glucose 110 H Uric Acid Calcium Phosphorus Magnesium AST ALT Total Creatine Kinase CK-MB (CK-2) Troponin T NT-Pro-B Natriuret Pep Total Protein Albumin Triglycerides HDL Cholesterol Urine WBC (Auto) Urine Creatinine Urine Total Protein Vancomycin Trough 20.5 H 05/16/19 05/16/19 05/17/19 05:50 05:50 04:20 WBC RBC 3.36 L 3.44 L Hgb 9.4 L 9.3 L Hct 29.1 L 29.7 L MCV MCH 27 L MCHC 31 L RDW 17.6 H 17.6 H Lymph % (Auto) Ogle % (Auto) Eos % (Auto) Lymph # Ogle # Eos # Seg Neutrophils % Seg Neuts % (Manual) 77.0 H Lymphocytes % (Manual) 5.0 L Monocytes % (Manual) Eosinophils % (Manual) 10.0 H Nucleated RBC % Seg Neutrophils # Seg Neutrophils # Man Lymphocytes # (Manual) 0.5 L Monocytes # (Manual) Eosinophils # (Manual) 0.9 H PT INR APTT POC ABG pH ABG pH POC ABG pCO2 POC ABG pO2 ABG pO2 ABG HCO3 ABG O2 Saturation ABG Base Excess ABG Hemoglobin Oxyhemoglobin Sodium Potassium Chloride Carbon Dioxide BUN 83 H Creatinine 4.4 H D Glucose 118 H POC Glucose Uric Acid Calcium Phosphorus Magnesium AST ALT Total Creatine Kinase CK-MB (CK-2) Troponin T NT-Pro-B Natriuret Pep Total Protein Albumin Triglycerides HDL Cholesterol Urine WBC (Auto) Urine Creatinine Urine Total Protein Vancomycin Trough 05/17/19 05/17/19 05/18/19 04:30 Unknown 01:50 WBC RBC 3.49 L Hgb 9.4 L Hct 30.0 L MCV MCH 27 L MCHC 31 L RDW 17.8 H Lymph % (Auto) 7.9 L Ogle % (Auto) 15.4 H Eos % (Auto) 6.3 H Lymph # 0.7 L Ogle # 1.4 H Eos # 0.6 H Seg Neutrophils % 70.2 H Seg Neuts % (Manual) Lymphocytes % (Manual) Monocytes % (Manual) Eosinophils % (Manual) Nucleated RBC % Seg Neutrophils # Seg Neutrophils # Man Lymphocytes # (Manual) Monocytes # (Manual) Eosinophils # (Manual) PT INR APTT POC ABG pH ABG pH 7.272 L POC ABG pCO2 POC ABG pO2 ABG pO2 75.7 L ABG HCO3 ABG O2 Saturation 93.8 L ABG Base Excess -3.0 L ABG Hemoglobin 7.8 L Oxyhemoglobin 91.6 L Sodium Potassium 5.2 H Chloride Carbon Dioxide BUN 96 H Creatinine 5.7 H Glucose 112 H POC Glucose Uric Acid Calcium Phosphorus Magnesium AST ALT Total Creatine Kinase CK-MB (CK-2) Troponin T NT-Pro-B Natriuret Pep Total Protein Albumin Triglycerides 173 H HDL Cholesterol Urine WBC (Auto) Urine Creatinine Urine Total Protein Vancomycin Trough 05/18/19 05/18/19 05/18/19 01:50 04:41 05:24 WBC RBC Hgb Hct MCV MCH MCHC RDW Lymph % (Auto) Ogle % (Auto) Eos % (Auto) Lymph # Ogle # Eos # Seg Neutrophils % Seg Neuts % (Manual) Lymphocytes % (Manual) Monocytes % (Manual) Eosinophils % (Manual) Nucleated RBC % Seg Neutrophils # Seg Neutrophils # Man Lymphocytes # (Manual) Monocytes # (Manual) Eosinophils # (Manual) PT INR APTT POC ABG pH 7.260 L ABG pH POC ABG pCO2 54.9 H POC ABG pO2 ABG pO2 ABG HCO3 ABG O2 Saturation ABG Base Excess ABG Hemoglobin Oxyhemoglobin Sodium Potassium 5.6 H Chloride Carbon Dioxide BUN 104 H Creatinine 6.6 H Glucose 107 H POC Glucose 106 H Uric Acid Calcium Phosphorus Magnesium AST ALT Total Creatine Kinase CK-MB (CK-2) Troponin T NT-Pro-B Natriuret Pep Total Protein Albumin Triglycerides HDL Cholesterol Urine WBC (Auto) Urine Creatinine Urine Total Protein Vancomycin Trough 05/18/19 05/18/19 05/19/19 11:34 23:26 04:06 WBC RBC 3.22 L Hgb 8.8 L Hct 27.3 L MCV MCH 27 L MCHC RDW 17.5 H Lymph % (Auto) Ogle % (Auto) Eos % (Auto) Lymph # Ogle # Eos # Seg Neutrophils % Seg Neuts % (Manual) 74.0 H Lymphocytes % (Manual) 4.0 L Monocytes % (Manual) 11.0 H Eosinophils % (Manual) 7.0 H Nucleated RBC % 1.0 H Seg Neutrophils # Seg Neutrophils # Man Lymphocytes # (Manual) 0.3 L Monocytes # (Manual) 0.9 H Eosinophils # (Manual) 0.6 H PT INR APTT POC ABG pH ABG pH POC ABG pCO2 POC ABG pO2 ABG pO2 ABG HCO3 ABG O2 Saturation ABG Base Excess ABG Hemoglobin Oxyhemoglobin Sodium Potassium Chloride Carbon Dioxide BUN Creatinine Glucose POC Glucose 152 H 112 H Uric Acid Calcium Phosphorus Magnesium AST ALT Total Creatine Kinase CK-MB (CK-2) Troponin T NT-Pro-B Natriuret Pep Total Protein Albumin Triglycerides HDL Cholesterol Urine WBC (Auto) Urine Creatinine Urine Total Protein Vancomycin Trough 05/19/19 05/19/19 05/20/19 04:06 06:00 04:00 WBC RBC 3.40 L Hgb 9.2 L Hct 28.6 L MCV MCH 27 L MCHC RDW 17.6 H Lymph % (Auto) Ogle % (Auto) Eos % (Auto) Lymph # Ogle # Eos # Seg Neutrophils % Seg Neuts % (Manual) Lymphocytes % (Manual) 11.0 L Monocytes % (Manual) Eosinophils % (Manual) 14.0 H Nucleated RBC % Seg Neutrophils # Seg Neutrophils # Man Lymphocytes # (Manual) 1.1 L Monocytes # (Manual) Eosinophils # (Manual) 1.4 H PT INR APTT POC ABG pH ABG pH 7.315 L POC ABG pCO2 POC ABG pO2 ABG pO2 ABG HCO3 ABG O2 Saturation ABG Base Excess ABG Hemoglobin 6.7 L Oxyhemoglobin 94.1 L Sodium Potassium 5.2 H Chloride Carbon Dioxide 21 L BUN 110 H Creatinine 7.2 H Glucose POC Glucose Uric Acid Calcium 8.3 L Phosphorus Magnesium AST ALT Total Creatine Kinase CK-MB (CK-2) Troponin T NT-Pro-B Natriuret Pep Total Protein Albumin Triglycerides HDL Cholesterol Urine WBC (Auto) Urine Creatinine Urine Total Protein Vancomycin Trough 1205/20/19 05/20/19 04:00 05:48 12:00 WBC RBC Hgb Hct MCV MCH MCHC RDW Lymph % (Auto) Ogle % (Auto) Eos % (Auto) Lymph # Ogle # Eos # Seg Neutrophils % Seg Neuts % (Manual) Lymphocytes % (Manual) Monocytes % (Manual) Eosinophils % (Manual) Nucleated RBC % Seg Neutrophils # Seg Neutrophils # Man Lymphocytes # (Manual) Monocytes # (Manual) Eosinophils # (Manual) PT INR APTT POC ABG pH ABG pH 7.281 L POC ABG pCO2 POC ABG pO2 ABG pO2 78.7 L ABG HCO3 ABG O2 Saturation 94.5 L ABG Base Excess -3.0 L ABG Hemoglobin 9.9 L Oxyhemoglobin 92.5 L Sodium 136 L Potassium 5.7 H Chloride 96.3 L Carbon Dioxide BUN 125 H Creatinine 8.3 H Glucose 106 H POC Glucose Uric Acid Calcium Phosphorus Magnesium AST ALT Total Creatine Kinase CK-MB (CK-2) Troponin T NT-Pro-B Natriuret Pep Total Protein Albumin Triglycerides HDL Cholesterol Urine WBC (Auto) 26.0 H Urine Creatinine Urine Total Protein Vancomycin Trough 05/21/19 05/21/19 05/21/19 04:33 05:20 Unknown WBC RBC 3.38 L Hgb 9.1 L Hct 28.5 L MCV MCH 27 L MCHC RDW 17.4 H Lymph % (Auto) Ogle % (Auto) Eos % (Auto) Lymph # Ogle # Eos # Seg Neutrophils % Seg Neuts % (Manual) 71.0 H Lymphocytes % (Manual) 1.0 L Monocytes % (Manual) 11.0 H Eosinophils % (Manual) 6.0 H Nucleated RBC % Seg Neutrophils # Seg Neutrophils # Man Lymphocytes # (Manual) 0.1 L Monocytes # (Manual) 1.0 H Eosinophils # (Manual) 0.6 H PT INR APTT POC ABG pH 7.315 L ABG pH POC ABG pCO2 57.8 H POC ABG pO2 68 L ABG pO2 ABG HCO3 ABG O2 Saturation ABG Base Excess ABG Hemoglobin Oxyhemoglobin Sodium Potassium Chloride 96.3 L Carbon Dioxide BUN 102 H Creatinine 7.0 H Glucose 103 H POC Glucose Uric Acid Calcium Phosphorus Magnesium AST ALT Total Creatine Kinase CK-MB (CK-2) Troponin T NT-Pro-B Natriuret Pep Total Protein Albumin Triglycerides HDL Cholesterol Urine WBC (Auto) Urine Creatinine Urine Total Protein Vancomycin Trough 05/22/19 05/22/19 05/22/19 03:54 06:25 06:25 WBC RBC 3.22 L Hgb 8.6 L Hct 27.0 L MCV MCH 27 L MCHC RDW 17.5 H Lymph % (Auto) Ogle % (Auto) 16.2 H Eos % (Auto) 10.8 H Lymph # Ogle # 1.3 H Eos # 0.9 H Seg Neutrophils % Seg Neuts % (Manual) Lymphocytes % (Manual) 10.0 L Monocytes % (Manual) 13.0 H Eosinophils % (Manual) 8.0 H Nucleated RBC % Seg Neutrophils # Seg Neutrophils # Man Lymphocytes # (Manual) 0.9 L Monocytes # (Manual) 1.1 H Eosinophils # (Manual) 0.7 H PT INR APTT POC ABG pH 7.313 L ABG pH POC ABG pCO2 55.0 H POC ABG pO2 ABG pO2 ABG HCO3 ABG O2 Saturation ABG Base Excess ABG Hemoglobin Oxyhemoglobin Sodium 135 L Potassium Chloride 94.3 L Carbon Dioxide BUN 117 H Creatinine 7.8 H Glucose POC Glucose Uric Acid Calcium 8.2 L Phosphorus Magnesium AST ALT Total Creatine Kinase CK-MB (CK-2) Troponin T NT-Pro-B Natriuret Pep Total Protein Albumin Triglycerides HDL Cholesterol Urine WBC (Auto) Urine Creatinine Urine Total Protein Vancomycin Trough 05/23/19 05/24/19 05/24/19 05:21 05:00 05:00 WBC RBC 3.18 L Hgb 8.5 L Hct 26.7 L MCV MCH 27 L MCHC RDW 17.9 H Lymph % (Auto) Ogle % (Auto) Eos % (Auto) Lymph # Ogle # Eos # Seg Neutrophils % Seg Neuts % (Manual) Lymphocytes % (Manual) Monocytes % (Manual) Eosinophils % (Manual) Nucleated RBC % Seg Neutrophils # Seg Neutrophils # Man Lymphocytes # (Manual) Monocytes # (Manual) Eosinophils # (Manual) PT INR APTT POC ABG pH ABG pH POC ABG pCO2 49.7 H POC ABG pO2 73 L ABG pO2 ABG HCO3 ABG O2 Saturation ABG Base Excess ABG Hemoglobin Oxyhemoglobin Sodium Potassium Chloride 95.7 L Carbon Dioxide BUN 97 H Creatinine 6.5 H Glucose POC Glucose Uric Acid Calcium 8.0 L Phosphorus Magnesium AST ALT Total Creatine Kinase CK-MB (CK-2) Troponin T NT-Pro-B Natriuret Pep Total Protein Albumin Triglycerides HDL Cholesterol Urine WBC (Auto) Urine Creatinine Urine Total Protein Vancomycin Trough 05/24/19 05/25/19 05/25/19 06:17 04:22 15:45 WBC RBC 2.98 L Hgb 8.1 L Hct 24.9 L MCV MCH 27 L MCHC RDW 17.8 H Lymph % (Auto) Ogle % (Auto) Eos % (Auto) Lymph # Ogle # Eos # Seg Neutrophils % Seg Neuts % (Manual) Lymphocytes % (Manual) Monocytes % (Manual) Eosinophils % (Manual) Nucleated RBC % Seg Neutrophils # Seg Neutrophils # Man Lymphocytes # (Manual) Monocytes # (Manual) Eosinophils # (Manual) PT INR APTT POC ABG pH 7.330 L 7.313 L ABG pH POC ABG pCO2 52.5 H 51.1 H POC ABG pO2 77 L ABG pO2 ABG HCO3 ABG O2 Saturation ABG Base Excess ABG Hemoglobin Oxyhemoglobin Sodium Potassium Chloride Carbon Dioxide BUN Creatinine Glucose POC Glucose Uric Acid Calcium Phosphorus Magnesium AST ALT Total Creatine Kinase CK-MB (CK-2) Troponin T NT-Pro-B Natriuret Pep Total Protein Albumin Triglycerides HDL Cholesterol Urine WBC (Auto) Urine Creatinine Urine Total Protein Vancomycin Trough 05/25/19 05/26/19 05/26/19 15:45 04:13 05:00 WBC RBC 3.10 L Hgb 8.4 L Hct 26.0 L MCV MCH 27 L MCHC RDW 17.4 H Lymph % (Auto) Ogle % (Auto) Eos % (Auto) Lymph # Ogle # Eos # Seg Neutrophils % Seg Neuts % (Manual) Lymphocytes % (Manual) Monocytes % (Manual) Eosinophils % (Manual) Nucleated RBC % Seg Neutrophils # Seg Neutrophils # Man Lymphocytes # (Manual) Monocytes # (Manual) Eosinophils # (Manual) PT INR APTT POC ABG pH 7.295 L ABG pH POC ABG pCO2 56.5 H POC ABG pO2 63 L ABG pO2 ABG HCO3 ABG O2 Saturation ABG Base Excess ABG Hemoglobin Oxyhemoglobin Sodium 136 L Potassium Chloride 96.8 L Carbon Dioxide BUN 83 H Creatinine 5.9 H Glucose POC Glucose Uric Acid Calcium 7.6 L Phosphorus Magnesium AST ALT Total Creatine Kinase CK-MB (CK-2) Troponin T NT-Pro-B Natriuret Pep Total Protein Albumin Triglycerides HDL Cholesterol Urine WBC (Auto) Urine Creatinine Urine Total Protein Vancomycin Trough 05/26/19 05/27/19 05/28/19 05:00 04:48 04:47 WBC RBC Hgb Hct MCV MCH MCHC RDW Lymph % (Auto) Ogle % (Auto) Eos % (Auto) Lymph # Ogle # Eos # Seg Neutrophils % Seg Neuts % (Manual) Lymphocytes % (Manual) Monocytes % (Manual) Eosinophils % (Manual) Nucleated RBC % Seg Neutrophils # Seg Neutrophils # Man Lymphocytes # (Manual) Monocytes # (Manual) Eosinophils # (Manual) PT INR APTT POC ABG pH 7.323 L ABG pH 7.284 L POC ABG pCO2 56.2 H POC ABG pO2 ABG pO2 71.6 L ABG HCO3 ABG O2 Saturation 92.0 L ABG Base Excess ABG Hemoglobin 7.7 L Oxyhemoglobin 89.9 L Sodium 136 L Potassium Chloride 95.3 L Carbon Dioxide BUN 96 H Creatinine 6.5 H Glucose 108 H POC Glucose Uric Acid Calcium 7.6 L Phosphorus Magnesium AST ALT Total Creatine Kinase CK-MB (CK-2) Troponin T NT-Pro-B Natriuret Pep Total Protein Albumin Triglycerides HDL Cholesterol Urine WBC (Auto) Urine Creatinine Urine Total Protein Vancomycin Trough 05/28/19 05/29/19 05/29/19 12:30 12:47 23:44 WBC RBC Hgb Hct MCV MCH MCHC RDW Lymph % (Auto) Ogle % (Auto) Eos % (Auto) Lymph # Ogle # Eos # Seg Neutrophils % Seg Neuts % (Manual) Lymphocytes % (Manual) Monocytes % (Manual) Eosinophils % (Manual) Nucleated RBC % Seg Neutrophils # Seg Neutrophils # Man Lymphocytes # (Manual) Monocytes # (Manual) Eosinophils # (Manual) PT INR APTT POC ABG pH ABG pH POC ABG pCO2 POC ABG pO2 ABG pO2 ABG HCO3 ABG O2 Saturation ABG Base Excess ABG Hemoglobin Oxyhemoglobin Sodium 135 L Potassium Chloride 95.3 L Carbon Dioxide BUN 82 H Creatinine 6.0 H Glucose POC Glucose 136 H 159 H Uric Acid Calcium 7.5 L Phosphorus Magnesium AST ALT Total Creatine Kinase CK-MB (CK-2) Troponin T NT-Pro-B Natriuret Pep Total Protein Albumin Triglycerides HDL Cholesterol Urine WBC (Auto) Urine Creatinine Urine Total Protein Vancomycin Trough 05/30/19 05/30/19 05/30/19 04:30 05:38 12:00 WBC RBC 3.01 L Hgb 8.2 L Hct 25.3 L MCV MCH 27 L MCHC RDW 17.5 H Lymph % (Auto) Ogle % (Auto) Eos % (Auto) Lymph # Ogle # Eos # Seg Neutrophils % Seg Neuts % (Manual) 80.0 H Lymphocytes % (Manual) 10.0 L Monocytes % (Manual) Eosinophils % (Manual) Nucleated RBC % Seg Neutrophils # Seg Neutrophils # Man 8.0 H Lymphocytes # (Manual) 1.0 L Monocytes # (Manual) Eosinophils # (Manual) PT INR APTT POC ABG pH ABG pH POC ABG pCO2 POC ABG pO2 73 L ABG pO2 ABG HCO3 ABG O2 Saturation ABG Base Excess ABG Hemoglobin Oxyhemoglobin Sodium Potassium Chloride Carbon Dioxide BUN Creatinine Glucose POC Glucose 166 H Uric Acid Calcium Phosphorus Magnesium AST ALT Total Creatine Kinase CK-MB (CK-2) Troponin T NT-Pro-B Natriuret Pep Total Protein Albumin Triglycerides HDL Cholesterol Urine WBC (Auto) Urine Creatinine Urine Total Protein Vancomycin Trough 05/30/19 05/31/19 05/31/19 23:45 04:07 13:04 WBC 14.3 H RBC 2.88 L Hgb 7.7 L Hct 23.9 L MCV 83 L MCH 27 L MCHC RDW 17.8 H Lymph % (Auto) Ogle % (Auto) Eos % (Auto) Lymph # Ogle # Eos # Seg Neutrophils % Seg Neuts % (Manual) 83.0 H Lymphocytes % (Manual) 11.0 L Monocytes % (Manual) Eosinophils % (Manual) Nucleated RBC % Seg Neutrophils # Seg Neutrophils # Man 11.9 H Lymphocytes # (Manual) Monocytes # (Manual) 0.9 H Eosinophils # (Manual) PT INR APTT POC ABG pH ABG pH POC ABG pCO2 47.4 H POC ABG pO2 ABG pO2 ABG HCO3 ABG O2 Saturation ABG Base Excess ABG Hemoglobin Oxyhemoglobin Sodium Potassium Chloride Carbon Dioxide BUN Creatinine Glucose POC Glucose 209 H Uric Acid Calcium Phosphorus Magnesium AST ALT Total Creatine Kinase CK-MB (CK-2) Troponin T NT-Pro-B Natriuret Pep Total Protein Albumin Triglycerides HDL Cholesterol Urine WBC (Auto) Urine Creatinine Urine Total Protein Vancomycin Trough 05/31/19 05/31/19 06/01/19 13:04 16:42 00:15 WBC RBC Hgb Hct MCV MCH MCHC RDW Lymph % (Auto) Ogle % (Auto) Eos % (Auto) Lymph # Ogle # Eos # Seg Neutrophils % Seg Neuts % (Manual) Lymphocytes % (Manual) Monocytes % (Manual) Eosinophils % (Manual) Nucleated RBC % Seg Neutrophils # Seg Neutrophils # Man Lymphocytes # (Manual) Monocytes # (Manual) Eosinophils # (Manual) PT INR APTT POC ABG pH ABG pH POC ABG pCO2 POC ABG pO2 ABG pO2 ABG HCO3 ABG O2 Saturation ABG Base Excess ABG Hemoglobin Oxyhemoglobin Sodium 129 L Potassium Chloride 88.6 L Carbon Dioxide 19 L BUN 117 H Creatinine 6.7 H Glucose 205 H POC Glucose 228 H 223 H Uric Acid Calcium 7.4 L Phosphorus 7.40 H Magnesium AST 58 H ALT 149 H Total Creatine Kinase CK-MB (CK-2) Troponin T NT-Pro-B Natriuret Pep Total Protein 6.0 L Albumin 2.5 L Triglycerides HDL Cholesterol Urine WBC (Auto) Urine Creatinine Urine Total Protein Vancomycin Trough 06/01/19 06/01/19 06/01/19 04:33 05:27 12:31 WBC RBC Hgb Hct MCV MCH MCHC RDW Lymph % (Auto) Ogle % (Auto) Eos % (Auto) Lymph # Ogle # Eos # Seg Neutrophils % Seg Neuts % (Manual) Lymphocytes % (Manual) Monocytes % (Manual) Eosinophils % (Manual) Nucleated RBC % Seg Neutrophils # Seg Neutrophils # Man Lymphocytes # (Manual) Monocytes # (Manual) Eosinophils # (Manual) PT INR APTT POC ABG pH ABG pH POC ABG pCO2 POC ABG pO2 ABG pO2 56.9 L ABG HCO3 ABG O2 Saturation 85.9 L ABG Base Excess ABG Hemoglobin 8.1 L Oxyhemoglobin 83.6 L Sodium Potassium Chloride Carbon Dioxide BUN Creatinine Glucose POC Glucose 183 H 217 H Uric Acid Calcium Phosphorus Magnesium AST ALT Total Creatine Kinase CK-MB (CK-2) Troponin T NT-Pro-B Natriuret Pep Total Protein Albumin Triglycerides HDL Cholesterol Urine WBC (Auto) Urine Creatinine Urine Total Protein Vancomycin Trough 06/01/19 06/02/19 06/02/19 18:20 00:00 05:33 WBC RBC Hgb Hct MCV MCH MCHC RDW Lymph % (Auto) Ogle % (Auto) Eos % (Auto) Lymph # Ogle # Eos # Seg Neutrophils % Seg Neuts % (Manual) Lymphocytes % (Manual) Monocytes % (Manual) Eosinophils % (Manual) Nucleated RBC % Seg Neutrophils # Seg Neutrophils # Man Lymphocytes # (Manual) Monocytes # (Manual) Eosinophils # (Manual) PT INR APTT POC ABG pH ABG pH POC ABG pCO2 POC ABG pO2 ABG pO2 ABG HCO3 ABG O2 Saturation ABG Base Excess ABG Hemoglobin Oxyhemoglobin Sodium Potassium Chloride Carbon Dioxide BUN Creatinine Glucose POC Glucose 265 H 279 H 259 H Uric Acid Calcium Phosphorus Magnesium AST ALT Total Creatine Kinase CK-MB (CK-2) Troponin T NT-Pro-B Natriuret Pep Total Protein Albumin Triglycerides HDL Cholesterol Urine WBC (Auto) Urine Creatinine Urine Total Protein Vancomycin Trough 06/02/19 06/02/19 06/02/19 11:06 11:06 11:42 WBC 13.1 H RBC 2.92 L Hgb 7.9 L Hct 24.4 L MCV MCH 27 L MCHC RDW 17.4 H Lymph % (Auto) Ogle % (Auto) Eos % (Auto) Lymph # Ogle # Eos # Seg Neutrophils % Seg Neuts % (Manual) 78.0 H Lymphocytes % (Manual) 12.0 L Monocytes % (Manual) 10.0 H Eosinophils % (Manual) Nucleated RBC % Seg Neutrophils # Seg Neutrophils # Man 10.2 H Lymphocytes # (Manual) Monocytes # (Manual) 1.3 H Eosinophils # (Manual) PT INR APTT POC ABG pH ABG pH POC ABG pCO2 POC ABG pO2 ABG pO2 ABG HCO3 ABG O2 Saturation ABG Base Excess ABG Hemoglobin Oxyhemoglobin Sodium 135 L Potassium Chloride 94.7 L Carbon Dioxide 21 L BUN 107 H Creatinine 4.5 H Glucose 286 H POC Glucose 263 H Uric Acid Calcium 7.9 L Phosphorus 6.30 H Magnesium AST ALT 104 H Total Creatine Kinase CK-MB (CK-2) Troponin T NT-Pro-B Natriuret Pep Total Protein 6.0 L Albumin 2.7 L Triglycerides HDL Cholesterol Urine WBC (Auto) Urine Creatinine Urine Total Protein Vancomycin Trough 06/02/19 06/02/19 06/03/19 18:17 23:55 05:30 WBC RBC Hgb Hct MCV MCH MCHC RDW Lymph % (Auto) Ogle % (Auto) Eos % (Auto) Lymph # Ogle # Eos # Seg Neutrophils % Seg Neuts % (Manual) Lymphocytes % (Manual) Monocytes % (Manual) Eosinophils % (Manual) Nucleated RBC % Seg Neutrophils # Seg Neutrophils # Man Lymphocytes # (Manual) Monocytes # (Manual) Eosinophils # (Manual) PT INR APTT POC ABG pH ABG pH POC ABG pCO2 POC ABG pO2 ABG pO2 ABG HCO3 ABG O2 Saturation ABG Base Excess ABG Hemoglobin Oxyhemoglobin Sodium Potassium Chloride 95.1 L Carbon Dioxide 21 L BUN 119 H Creatinine 4.1 H Glucose 330 H POC Glucose 276 H 244 H Uric Acid Calcium 8.1 L Phosphorus Magnesium AST ALT 98 H Total Creatine Kinase CK-MB (CK-2) Troponin T NT-Pro-B Natriuret Pep Total Protein 5.8 L Albumin 2.8 L Triglycerides HDL Cholesterol Urine WBC (Auto) Urine Creatinine Urine Total Protein Vancomycin Trough 06/03/19 06/03/19 06/03/19 05:30 06:04 09:42 WBC 12.8 H RBC 3.01 L Hgb 8.2 L Hct 25.4 L MCV MCH 27 L MCHC RDW 17.5 H Lymph % (Auto) Ogle % (Auto) Eos % (Auto) Lymph # Ogle # Eos # Seg Neutrophils % Seg Neuts % (Manual) 78.0 H Lymphocytes % (Manual) 10.0 L Monocytes % (Manual) 12.0 H Eosinophils % (Manual) Nucleated RBC % Seg Neutrophils # Seg Neutrophils # Man 10.0 H Lymphocytes # (Manual) Monocytes # (Manual) 1.5 H Eosinophils # (Manual) PT INR APTT POC ABG pH ABG pH POC ABG pCO2 POC ABG pO2 ABG pO2 ABG HCO3 ABG O2 Saturation ABG Base Excess ABG Hemoglobin Oxyhemoglobin Sodium Potassium Chloride Carbon Dioxide BUN 106 H Creatinine Glucose POC Glucose 254 H Uric Acid Calcium Phosphorus Magnesium AST ALT Total Creatine Kinase CK-MB (CK-2) Troponin T NT-Pro-B Natriuret Pep Total Protein Albumin Triglycerides HDL Cholesterol Urine WBC (Auto) Urine Creatinine Urine Total Protein Vancomycin Trough 06/03/19 06/03/19 06/03/19 12:52 17:25 23:37 WBC RBC Hgb Hct MCV MCH MCHC RDW Lymph % (Auto) Ogle % (Auto) Eos % (Auto) Lymph # Ogle # Eos # Seg Neutrophils % Seg Neuts % (Manual) Lymphocytes % (Manual) Monocytes % (Manual) Eosinophils % (Manual) Nucleated RBC % Seg Neutrophils # Seg Neutrophils # Man Lymphocytes # (Manual) Monocytes # (Manual) Eosinophils # (Manual) PT INR APTT POC ABG pH ABG pH POC ABG pCO2 POC ABG pO2 ABG pO2 ABG HCO3 ABG O2 Saturation ABG Base Excess ABG Hemoglobin Oxyhemoglobin Sodium Potassium Chloride Carbon Dioxide BUN Creatinine Glucose POC Glucose 274 H 285 H 310 H Uric Acid Calcium Phosphorus Magnesium AST ALT Total Creatine Kinase CK-MB (CK-2) Troponin T NT-Pro-B Natriuret Pep Total Protein Albumin Triglycerides HDL Cholesterol Urine WBC (Auto) Urine Creatinine Urine Total Protein Vancomycin Trough 06/04/19 06/04/19 06/04/19 04:57 05:03 11:50 WBC RBC Hgb Hct MCV MCH MCHC RDW Lymph % (Auto) Ogle % (Auto) Eos % (Auto) Lymph # Ogle # Eos # Seg Neutrophils % Seg Neuts % (Manual) Lymphocytes % (Manual) Monocytes % (Manual) Eosinophils % (Manual) Nucleated RBC % Seg Neutrophils # Seg Neutrophils # Man Lymphocytes # (Manual) Monocytes # (Manual) Eosinophils # (Manual) PT INR APTT POC ABG pH 7.488 H ABG pH POC ABG pCO2 POC ABG pO2 ABG pO2 ABG HCO3 ABG O2 Saturation ABG Base Excess ABG Hemoglobin Oxyhemoglobin Sodium Potassium Chloride Carbon Dioxide BUN Creatinine Glucose POC Glucose 275 H 279 H Uric Acid Calcium Phosphorus Magnesium AST ALT Total Creatine Kinase CK-MB (CK-2) Troponin T NT-Pro-B Natriuret Pep Total Protein Albumin Triglycerides HDL Cholesterol Urine WBC (Auto) Urine Creatinine Urine Total Protein Vancomycin Trough 06/04/19 06/04/19 06/04/19 18:32 22:03 23:55 WBC RBC Hgb Hct MCV MCH MCHC RDW Lymph % (Auto) Ogle % (Auto) Eos % (Auto) Lymph # Ogle # Eos # Seg Neutrophils % Seg Neuts % (Manual) Lymphocytes % (Manual) Monocytes % (Manual) Eosinophils % (Manual) Nucleated RBC % Seg Neutrophils # Seg Neutrophils # Man Lymphocytes # (Manual) Monocytes # (Manual) Eosinophils # (Manual) PT INR APTT POC ABG pH ABG pH POC ABG pCO2 POC ABG pO2 ABG pO2 ABG HCO3 ABG O2 Saturation ABG Base Excess ABG Hemoglobin Oxyhemoglobin Sodium Potassium Chloride Carbon Dioxide BUN Creatinine Glucose POC Glucose 267 H 307 H 292 H Uric Acid Calcium Phosphorus Magnesium AST ALT Total Creatine Kinase CK-MB (CK-2) Troponin T NT-Pro-B Natriuret Pep Total Protein Albumin Triglycerides HDL Cholesterol Urine WBC (Auto) Urine Creatinine Urine Total Protein Vancomycin Trough 06/05/19 06/05/19 06/05/19 03:52 06:41 12:29 WBC RBC Hgb Hct MCV MCH MCHC RDW Lymph % (Auto) Ogle % (Auto) Eos % (Auto) Lymph # Ogle # Eos # Seg Neutrophils % Seg Neuts % (Manual) Lymphocytes % (Manual) Monocytes % (Manual) Eosinophils % (Manual) Nucleated RBC % Seg Neutrophils # Seg Neutrophils # Man Lymphocytes # (Manual) Monocytes # (Manual) Eosinophils # (Manual) PT INR APTT POC ABG pH 7.462 H ABG pH POC ABG pCO2 POC ABG pO2 ABG pO2 ABG HCO3 ABG O2 Saturation ABG Base Excess ABG Hemoglobin Oxyhemoglobin Sodium Potassium Chloride Carbon Dioxide BUN Creatinine Glucose POC Glucose 369 H 265 H Uric Acid Calcium Phosphorus Magnesium AST ALT Total Creatine Kinase CK-MB (CK-2) Troponin T NT-Pro-B Natriuret Pep Total Protein Albumin Triglycerides HDL Cholesterol Urine WBC (Auto) Urine Creatinine Urine Total Protein Vancomycin Trough 06/05/19 06/05/19 06/05/19 18:20 21:42 23:21 WBC RBC Hgb Hct MCV MCH MCHC RDW Lymph % (Auto) Ogle % (Auto) Eos % (Auto) Lymph # Ogle # Eos # Seg Neutrophils % Seg Neuts % (Manual) Lymphocytes % (Manual) Monocytes % (Manual) Eosinophils % (Manual) Nucleated RBC % Seg Neutrophils # Seg Neutrophils # Man Lymphocytes # (Manual) Monocytes # (Manual) Eosinophils # (Manual) PT INR APTT POC ABG pH ABG pH POC ABG pCO2 POC ABG pO2 ABG pO2 ABG HCO3 ABG O2 Saturation ABG Base Excess ABG Hemoglobin Oxyhemoglobin Sodium Potassium Chloride Carbon Dioxide BUN Creatinine Glucose POC Glucose 249 H 246 H 274 H Uric Acid Calcium Phosphorus Magnesium AST ALT Total Creatine Kinase CK-MB (CK-2) Troponin T NT-Pro-B Natriuret Pep Total Protein Albumin Triglycerides HDL Cholesterol Urine WBC (Auto) Urine Creatinine Urine Total Protein Vancomycin Trough 06/06/19 06/06/19 06/06/19 04:00 05:49 11:34 WBC 18.1 H RBC 3.53 L Hgb 9.5 L Hct 30.3 L MCV MCH 27 L MCHC 31 L RDW 19.5 H Lymph % (Auto) Ogle % (Auto) Eos % (Auto) Lymph # Ogle # Eos # Seg Neutrophils % Seg Neuts % (Manual) 87.0 H Lymphocytes % (Manual) 3.0 L Monocytes % (Manual) 8.0 H Eosinophils % (Manual) Nucleated RBC % Seg Neutrophils # Seg Neutrophils # Man 15.7 H Lymphocytes # (Manual) 0.5 L Monocytes # (Manual) 1.4 H Eosinophils # (Manual) PT INR APTT POC ABG pH ABG pH 7.472 H POC ABG pCO2 POC ABG pO2 ABG pO2 76.4 L ABG HCO3 28.1 H ABG O2 Saturation ABG Base Excess 4.3 H ABG Hemoglobin 12.5 L Oxyhemoglobin 93.8 L Sodium Potassium Chloride Carbon Dioxide BUN Creatinine Glucose POC Glucose 340 H Uric Acid Calcium Phosphorus Magnesium AST ALT Total Creatine Kinase CK-MB (CK-2) Troponin T NT-Pro-B Natriuret Pep Total Protein Albumin Triglycerides HDL Cholesterol Urine WBC (Auto) Urine Creatinine Urine Total Protein Vancomycin Trough 06/06/19 06/06/19 06/06/19 11:34 12:11 18:10 WBC RBC Hgb Hct MCV MCH MCHC RDW Lymph % (Auto) Ogle % (Auto) Eos % (Auto) Lymph # Ogle # Eos # Seg Neutrophils % Seg Neuts % (Manual) Lymphocytes % (Manual) Monocytes % (Manual) Eosinophils % (Manual) Nucleated RBC % Seg Neutrophils # Seg Neutrophils # Man Lymphocytes # (Manual) Monocytes # (Manual) Eosinophils # (Manual) PT INR APTT POC ABG pH ABG pH POC ABG pCO2 POC ABG pO2 ABG pO2 ABG HCO3 ABG O2 Saturation ABG Base Excess ABG Hemoglobin Oxyhemoglobin Sodium Potassium Chloride Carbon Dioxide BUN 70 H Creatinine Glucose 310 H POC Glucose 283 H 301 H Uric Acid Calcium 8.3 L Phosphorus 4.60 H Magnesium AST ALT 75 H Total Creatine Kinase CK-MB (CK-2) Troponin T NT-Pro-B Natriuret Pep Total Protein 5.6 L Albumin 2.9 L Triglycerides HDL Cholesterol Urine WBC (Auto) Urine Creatinine Urine Total Protein Vancomycin Trough 06/06/19 06/06/19 06/07/19 22:21 23:16 04:30 WBC RBC Hgb Hct MCV MCH MCHC RDW Lymph % (Auto) Ogle % (Auto) Eos % (Auto) Lymph # Ogle # Eos # Seg Neutrophils % Seg Neuts % (Manual) Lymphocytes % (Manual) Monocytes % (Manual) Eosinophils % (Manual) Nucleated RBC % Seg Neutrophils # Seg Neutrophils # Man Lymphocytes # (Manual) Monocytes # (Manual) Eosinophils # (Manual) PT INR APTT POC ABG pH ABG pH 7.480 H POC ABG pCO2 POC ABG pO2 ABG pO2 77.0 L ABG HCO3 27.2 H ABG O2 Saturation ABG Base Excess 3.5 H ABG Hemoglobin 7.1 L Oxyhemoglobin 94.2 L Sodium Potassium Chloride Carbon Dioxide BUN Creatinine Glucose POC Glucose 289 H 343 H Uric Acid Calcium Phosphorus Magnesium AST ALT Total Creatine Kinase CK-MB (CK-2) Troponin T NT-Pro-B Natriuret Pep Total Protein Albumin Triglycerides HDL Cholesterol Urine WBC (Auto) Urine Creatinine Urine Total Protein Vancomycin Trough 06/07/19 06/07/19 06/07/19 05:15 12:52 18:41 WBC RBC Hgb Hct MCV MCH MCHC RDW Lymph % (Auto) Ogle % (Auto) Eos % (Auto) Lymph # Ogle # Eos # Seg Neutrophils % Seg Neuts % (Manual) Lymphocytes % (Manual) Monocytes % (Manual) Eosinophils % (Manual) Nucleated RBC % Seg Neutrophils # Seg Neutrophils # Man Lymphocytes # (Manual) Monocytes # (Manual) Eosinophils # (Manual) PT INR APTT POC ABG pH ABG pH POC ABG pCO2 POC ABG pO2 ABG pO2 ABG HCO3 ABG O2 Saturation ABG Base Excess ABG Hemoglobin Oxyhemoglobin Sodium Potassium Chloride Carbon Dioxide BUN Creatinine Glucose POC Glucose 307 H 226 H 187 H Uric Acid Calcium Phosphorus Magnesium AST ALT Total Creatine Kinase CK-MB (CK-2) Troponin T NT-Pro-B Natriuret Pep Total Protein Albumin Triglycerides HDL Cholesterol Urine WBC (Auto) Urine Creatinine Urine Total Protein Vancomycin Trough 06/07/19 06/07/19 06/08/19 22:54 23:46 04:20 WBC 16.0 H RBC Hgb 10.0 L Hct 32.1 L MCV MCH 27 L MCHC 31 L RDW 19.4 H Lymph % (Auto) Ogle % (Auto) Eos % (Auto) Lymph # Ogle # Eos # Seg Neutrophils % Seg Neuts % (Manual) 87.0 H Lymphocytes % (Manual) 7.0 L Monocytes % (Manual) Eosinophils % (Manual) Nucleated RBC % Seg Neutrophils # Seg Neutrophils # Man 13.9 H Lymphocytes # (Manual) 1.1 L Monocytes # (Manual) 1.0 H Eosinophils # (Manual) PT INR APTT POC ABG pH ABG pH POC ABG pCO2 POC ABG pO2 ABG pO2 ABG HCO3 ABG O2 Saturation ABG Base Excess ABG Hemoglobin Oxyhemoglobin Sodium Potassium Chloride Carbon Dioxide BUN Creatinine Glucose POC Glucose 199 H 172 H Uric Acid Calcium Phosphorus Magnesium AST ALT Total Creatine Kinase CK-MB (CK-2) Troponin T NT-Pro-B Natriuret Pep Total Protein Albumin Triglycerides HDL Cholesterol Urine WBC (Auto) Urine Creatinine Urine Total Protein Vancomycin Trough 06/08/19 06/08/19 06/08/19 04:20 05:15 11:31 WBC RBC Hgb Hct MCV MCH MCHC RDW Lymph % (Auto) Ogle % (Auto) Eos % (Auto) Lymph # Ogle # Eos # Seg Neutrophils % Seg Neuts % (Manual) Lymphocytes % (Manual) Monocytes % (Manual) Eosinophils % (Manual) Nucleated RBC % Seg Neutrophils # Seg Neutrophils # Man Lymphocytes # (Manual) Monocytes # (Manual) Eosinophils # (Manual) PT INR APTT POC ABG pH ABG pH POC ABG pCO2 POC ABG pO2 ABG pO2 ABG HCO3 ABG O2 Saturation ABG Base Excess ABG Hemoglobin Oxyhemoglobin Sodium 146 H D Potassium Chloride Carbon Dioxide BUN 77 H Creatinine Glucose 205 H POC Glucose 209 H 181 H Uric Acid Calcium Phosphorus Magnesium AST ALT 66 H Total Creatine Kinase CK-MB (CK-2) Troponin T NT-Pro-B Natriuret Pep Total Protein 5.5 L Albumin 2.9 L Triglycerides HDL Cholesterol Urine WBC (Auto) Urine Creatinine Urine Total Protein Vancomycin Trough 06/08/19 06/08/19 06/09/19 17:28 23:24 05:20 WBC RBC Hgb Hct MCV MCH MCHC RDW Lymph % (Auto) Ogle % (Auto) Eos % (Auto) Lymph # Ogle # Eos # Seg Neutrophils % Seg Neuts % (Manual) Lymphocytes % (Manual) Monocytes % (Manual) Eosinophils % (Manual) Nucleated RBC % Seg Neutrophils # Seg Neutrophils # Man Lymphocytes # (Manual) Monocytes # (Manual) Eosinophils # (Manual) PT INR APTT POC ABG pH ABG pH POC ABG pCO2 POC ABG pO2 ABG pO2 ABG HCO3 ABG O2 Saturation ABG Base Excess ABG Hemoglobin Oxyhemoglobin Sodium Potassium Chloride Carbon Dioxide BUN Creatinine Glucose POC Glucose 215 H 200 H 173 H Uric Acid Calcium Phosphorus Magnesium AST ALT Total Creatine Kinase CK-MB (CK-2) Troponin T NT-Pro-B Natriuret Pep Total Protein Albumin Triglycerides HDL Cholesterol Urine WBC (Auto) Urine Creatinine Urine Total Protein Vancomycin Trough 06/09/19 06/09/19 06/09/19 12:07 18:32 23:51 WBC RBC Hgb Hct MCV MCH MCHC RDW Lymph % (Auto) Ogle % (Auto) Eos % (Auto) Lymph # Ogle # Eos # Seg Neutrophils % Seg Neuts % (Manual) Lymphocytes % (Manual) Monocytes % (Manual) Eosinophils % (Manual) Nucleated RBC % Seg Neutrophils # Seg Neutrophils # Man Lymphocytes # (Manual) Monocytes # (Manual) Eosinophils # (Manual) PT INR APTT POC ABG pH ABG pH POC ABG pCO2 POC ABG pO2 ABG pO2 ABG HCO3 ABG O2 Saturation ABG Base Excess ABG Hemoglobin Oxyhemoglobin Sodium Potassium Chloride Carbon Dioxide BUN Creatinine Glucose POC Glucose 117 H 169 H 147 H Uric Acid Calcium Phosphorus Magnesium AST ALT Total Creatine Kinase CK-MB (CK-2) Troponin T NT-Pro-B Natriuret Pep Total Protein Albumin Triglycerides HDL Cholesterol Urine WBC (Auto) Urine Creatinine Urine Total Protein Vancomycin Trough 06/10/19 06/10/19 06/10/19 05:45 05:45 06:01 WBC 14.6 H RBC Hgb 9.9 L Hct 32.2 L MCV MCH 27 L MCHC 31 L RDW 19.6 H Lymph % (Auto) 10.5 L Ogle % (Auto) 9.4 H Eos % (Auto) Lymph # Ogle # 1.4 H Eos # Seg Neutrophils % 79.9 H Seg Neuts % (Manual) Lymphocytes % (Manual) Monocytes % (Manual) Eosinophils % (Manual) Nucleated RBC % Seg Neutrophils # 11.7 H Seg Neutrophils # Man Lymphocytes # (Manual) Monocytes # (Manual) Eosinophils # (Manual) PT INR APTT POC ABG pH ABG pH POC ABG pCO2 POC ABG pO2 ABG pO2 ABG HCO3 ABG O2 Saturation ABG Base Excess ABG Hemoglobin Oxyhemoglobin Sodium 150 H Potassium Chloride 108.3 H Carbon Dioxide BUN 49 H Creatinine Glucose 172 H POC Glucose 165 H Uric Acid Calcium Phosphorus Magnesium 1.40 L AST ALT Total Creatine Kinase CK-MB (CK-2) Troponin T NT-Pro-B Natriuret Pep Total Protein Albumin Triglycerides HDL Cholesterol Urine WBC (Auto) Urine Creatinine Urine Total Protein Vancomycin Trough 06/10/19 06/10/19 06/11/19 12:11 18:30 00:02 WBC RBC Hgb Hct MCV MCH MCHC RDW Lymph % (Auto) Ogle % (Auto) Eos % (Auto) Lymph # Ogle # Eos # Seg Neutrophils % Seg Neuts % (Manual) Lymphocytes % (Manual) Monocytes % (Manual) Eosinophils % (Manual) Nucleated RBC % Seg Neutrophils # Seg Neutrophils # Man Lymphocytes # (Manual) Monocytes # (Manual) Eosinophils # (Manual) PT INR APTT POC ABG pH ABG pH POC ABG pCO2 POC ABG pO2 ABG pO2 ABG HCO3 ABG O2 Saturation ABG Base Excess ABG Hemoglobin Oxyhemoglobin Sodium Potassium Chloride Carbon Dioxide BUN Creatinine Glucose POC Glucose 150 H 154 H 130 H Uric Acid Calcium Phosphorus Magnesium AST ALT Total Creatine Kinase CK-MB (CK-2) Troponin T NT-Pro-B Natriuret Pep Total Protein Albumin Triglycerides HDL Cholesterol Urine WBC (Auto) Urine Creatinine Urine Total Protein Vancomycin Trough 06/11/19 06/11/19 06/11/19 05:33 08:34 12:33 WBC RBC Hgb Hct MCV MCH MCHC RDW Lymph % (Auto) Ogle % (Auto) Eos % (Auto) Lymph # Ogle # Eos # Seg Neutrophils % Seg Neuts % (Manual) Lymphocytes % (Manual) Monocytes % (Manual) Eosinophils % (Manual) Nucleated RBC % Seg Neutrophils # Seg Neutrophils # Man Lymphocytes # (Manual) Monocytes # (Manual) Eosinophils # (Manual) PT INR APTT POC ABG pH ABG pH POC ABG pCO2 POC ABG pO2 ABG pO2 ABG HCO3 ABG O2 Saturation ABG Base Excess ABG Hemoglobin Oxyhemoglobin Sodium 154 H Potassium Chloride 111.6 H Carbon Dioxide BUN 41 H Creatinine Glucose 147 H POC Glucose 183 H 185 H Uric Acid Calcium Phosphorus Magnesium AST ALT Total Creatine Kinase CK-MB (CK-2) Troponin T NT-Pro-B Natriuret Pep Total Protein Albumin Triglycerides HDL Cholesterol Urine WBC (Auto) Urine Creatinine Urine Total Protein Vancomycin Trough 06/11/19 06/11/19 06/12/19 18:22 23:46 03:21 WBC 11.9 H RBC 3.61 L Hgb 9.9 L Hct 31.7 L MCV MCH 27 L MCHC 31 L RDW 19.3 H Lymph % (Auto) 10.6 L Ogle % (Auto) 8.6 H Eos % (Auto) Lymph # Ogle # 1.0 H Eos # Seg Neutrophils % 80.6 H Seg Neuts % (Manual) Lymphocytes % (Manual) Monocytes % (Manual) Eosinophils % (Manual) Nucleated RBC % Seg Neutrophils # 9.6 H Seg Neutrophils # Man Lymphocytes # (Manual) Monocytes # (Manual) Eosinophils # (Manual) PT INR APTT POC ABG pH ABG pH POC ABG pCO2 POC ABG pO2 ABG pO2 ABG HCO3 ABG O2 Saturation ABG Base Excess ABG Hemoglobin Oxyhemoglobin Sodium Potassium Chloride Carbon Dioxide BUN Creatinine Glucose POC Glucose 158 H 182 H Uric Acid Calcium Phosphorus Magnesium AST ALT Total Creatine Kinase CK-MB (CK-2) Troponin T NT-Pro-B Natriuret Pep Total Protein Albumin Triglycerides HDL Cholesterol Urine WBC (Auto) Urine Creatinine Urine Total Protein Vancomycin Trough 06/12/19 03:21 WBC RBC Hgb Hct MCV MCH MCHC RDW Lymph % (Auto) Ogle % (Auto) Eos % (Auto) Lymph # Ogle # Eos # Seg Neutrophils % Seg Neuts % (Manual) Lymphocytes % (Manual) Monocytes % (Manual) Eosinophils % (Manual) Nucleated RBC % Seg Neutrophils # Seg Neutrophils # Man Lymphocytes # (Manual) Monocytes # (Manual) Eosinophils # (Manual) PT INR APTT POC ABG pH ABG pH POC ABG pCO2 POC ABG pO2 ABG pO2 ABG HCO3 ABG O2 Saturation ABG Base Excess ABG Hemoglobin Oxyhemoglobin Sodium 148 H Potassium Chloride 107.3 H Carbon Dioxide BUN 34 H Creatinine 0.7 L Glucose 194 H POC Glucose Uric Acid Calcium Phosphorus Magnesium 1.40 L AST ALT Total Creatine Kinase CK-MB (CK-2) Troponin T NT-Pro-B Natriuret Pep Total Protein Albumin Triglycerides HDL Cholesterol Urine WBC (Auto) Urine Creatinine Urine Total Protein Vancomycin Trough
[2019-06-12] MEDS: hydroCHLOROthiazide 25 MG TAB PO SCH (12:28)
--- NOTE | 2019-06-12 12:57 | Progress Note ---
Assessment and Plan Assessment and plan: 34-year-old man with morbid obesity was brought to the hospital for shortness of breath and insomnia. He was found to have severe hypoxia and bradycardia who then became pulseless, he was cyanotic and he was intubated after receiving CPR with 2 rounds of epinephrine. Hypertensive emergency Continue Cardene drip. Have started pills to be taken by NG tube. Acute respiratory failure with hypoxia on mechanical ventilator greater than 96 hours -Obesity hypoventilation Patient extubated 06/07 after being on the ventilator for 37 days, continue NIV a t bedtime. Continue oxygen supplement in the daytime. Status post cardiac arrest anoxic/ischemic brain injury Patient's mentation is improved today., EEG was negative for seizures and neurology consult appreciated. Severe malnutrition Dysphasia Continue speech therapy, continue scopolamine as patient had copious secretions, suctioning as needed -Dietitian input appreciated, tube feeds to be restarted today. Acute kidney injury due to ATN Dialysis now put on hold, kidney function improving Nephrology input appreciated, Morbid obesity; will need weight loss program upon discharge DVT prophylaxis; Lovenox Disposition; does not have a pay source, therefore home with home health services Critical care time 35 minutes History Interval history: No fevers No vomiting no seizure-like activity No diarrhea No agitation No obvious discomfort Hospitalist Physical - Physical exam Narrative exam: General.: Morbidly obese, patient is drooling HEENT: Moist mucous membranes, extraocular muscles intact, no lymphadenopathy Neck: supple Cardiac: S1-S2 heard Lungs: clear to auscultation bilaterally Abdomen: soft , nontender, nondistended, bowel sounds positive Extremities: no edema clubbing or cyanosis Skin: no rash or lesions Neurologic: He is awake and alert. He is currently nonverbal. But he nods and shakes his head. He obeys commands Psych: calm, - Constitutional Vitals: Temp Pulse Resp BP Pulse Ox 99 F 94 H 18 196/99 97 06/12/19 08:00 06/12/19 12:23 06/12/19 11:00 06/12/19 12:23 06/12/19 11:00 General appearance: Present: mild distress, obese Results - Labs CBC & Chem 7: 06/12/19 03:21 06/12/19 03:21 Labs: Laboratory Last Values WBC 11.9 K/mm3 (4.5-11.0) H 06/12/19 03:21 RBC 3.61 M/mm3 (3.65-5.03) L 06/12/19 03:21 Hgb 9.9 gm/dl (11.8-15.2) L 06/12/19 03:21 Hct 31.7 % (35.5-45.6) L 06/12/19 03:21 MCV 88 fl (84-94) 06/12/19 03:21 MCH 27 pg (28-32) L 06/12/19 03:21 MCHC 31 % (32-34) L 06/12/19 03:21 RDW 19.3 % (13.2-15.2) H 06/12/19 03:21 Plt Count 159 K/mm3 (140-440) 06/12/19 03:21 Lymph % (Auto) 10.6 % (13.4-35.0) L 06/12/19 03:21 Arthur % (Auto) 8.6 % (0.0-7.3) H 06/12/19 03:21 Eos % (Auto) 0.0 % (0.0-4.3) 06/12/19 03:21 Baso % (Auto) 0.2 % (0.0-1.8) 06/12/19 03:21 Lymph # 1.3 K/mm3 (1.2-5.4) 06/12/19 03:21 Arthur # 1.0 K/mm3 (0.0-0.8) H 06/12/19 03:21 Eos # 0.0 K/mm3 (0.0-0.4) 06/12/19 03:21 Baso # 0.0 K/mm3 (0.0-0.1) 06/12/19 03:21 Add Manual Diff Complete 06/08/19 04:20 Total Counted 100 06/08/19 04:20 Seg Neutrophils % 80.6 % (40.0-70.0) H 06/12/19 03:21 Seg Neuts % (Manual) 87.0 % (40.0-70.0) H 06/08/19 04:20 Band Neutrophils % 0 % 06/08/19 04:20 Lymphocytes % (Manual) 7.0 % (13.4-35.0) L 06/08/19 04:20 Reactive Lymphs % (Man) 0 % 06/08/19 04:20 Monocytes % (Manual) 6.0 % (0.0-7.3) 06/08/19 04:20 Eosinophils % (Manual) 0 % (0.0-4.3) 06/08/19 04:20 Basophils % (Manual) 0 % (0.0-1.8) 06/08/19 04:20 Metamyelocytes % 0 % 06/08/19 04:20 Myelocytes % 0 % 06/08/19 04:20 Promyelocytes % 0 % 06/08/19 04:20 Blast Cells % 0 % 06/08/19 04:20 Nucleated RBC % Not Reportable 06/08/19 04:20 Seg Neutrophils # 9.6 K/mm3 (1.8-7.7) H 06/12/19 03:21 Seg Neutrophils # Man 13.9 K/mm3 (1.8-7.7) H 06/08/19 04:20 Band Neutrophils # 0.0 K/mm3 06/08/19 04:20 Lymphocytes # (Manual) 1.1 K/mm3 (1.2-5.4) L 06/08/19 04:20 Abs React Lymphs (Man) 0.0 K/mm3 06/08/19 04:20 Monocytes # (Manual) 1.0 K/mm3 (0.0-0.8) H 06/08/19 04:20 Eosinophils # (Manual) 0.0 K/mm3 (0.0-0.4) 06/08/19 04:20 Basophils # (Manual) 0.0 K/mm3 (0.0-0.1) 06/08/19 04:20 Metamyelocytes # 0.0 K/mm3 06/08/19 04:20 Myelocytes # 0.0 K/mm3 06/08/19 04:20 Promyelocytes # 0.0 K/mm3 06/08/19 04:20 Blast Cells # 0.0 K/mm3 06/08/19 04:20 WBC Morphology Not Reportable 06/08/19 04:20 Hypersegmented Neuts Not Reportable 06/08/19 04:20 Hyposegmented Neuts Not Reportable 06/08/19 04:20 Hypogranular Neuts Not Reportable 06/08/19 04:20 Smudge Cells Not Reportable 06/08/19 04:20 Toxic Granulation Not Reportable 06/08/19 04:20 Toxic Vacuolation Not Reportable 06/08/19 04:20 Dohle Bodies Not Reportable 06/08/19 04:20 Pelger-Huet Anomaly Not Reportable 06/08/19 04:20 Renea Rods Not Reportable 06/08/19 04:20 Platelet Estimate Consistent w auto 06/08/19 04:20 Clumped Platelets Not Reportable 06/08/19 04:20 Plt Clumps, EDTA Not Reportable 06/08/19 04:20 Large Platelets Not Reportable 06/08/19 04:20 Giant Platelets Not Reportable 06/08/19 04:20 Platelet Satelliting Not Reportable 06/08/19 04:20 Plt Morphology Comment Not Reportable 06/08/19 04:20 RBC Morphology Not Reportable 06/08/19 04:20 Dimorphic RBCs Not Reportable 06/08/19 04:20 Polychromasia Not Reportable 06/08/19 04:20 Hypochromasia Not Reportable 06/08/19 04:20 Poikilocytosis Not Reportable 06/08/19 04:20 Anisocytosis Not Reportable 06/08/19 04:20 Microcytosis Not Reportable 06/08/19 04:20 Macrocytosis Not Reportable 06/08/19 04:20 Spherocytes Not Reportable 06/08/19 04:20 Pappenheimer Bodies Not Reportable 06/08/19 04:20 Sickle Cells Not Reportable 06/08/19 04:20 Target Cells Not Reportable 06/08/19 04:20 Tear Drop Cells Not Reportable 06/08/19 04:20 Ovalocytes Rare 06/08/19 04:20 Stomatocytes Few 06/08/19 04:20 Helmet Cells Not Reportable 06/08/19 04:20 [place] Bodies Not Reportable 06/08/19 04:20 [place] Rings Not Reportable 06/08/19 04:20 Dennis Cells Not Reportable 06/08/19 04:20 Bite Cells Not Reportable 06/08/19 04:20 Crenated Cell Not Reportable 06/08/19 04:20 Elliptocytes Not Reportable 06/08/19 04:20 Acanthocytes (Spur) Not Reportable 06/08/19 04:20 Rouleaux Not Reportable 06/08/19 04:20 Hemoglobin C Crystals Not Reportable 06/08/19 04:20 Schistocytes Few 06/08/19 04:20 Malaria parasites Not Reportable 06/08/19 04:20 Syed Bodies Not Reportable 06/08/19 04:20 Hem Pathologist Commnt No 06/08/19 04:20 PT 15.4 Sec. (12.2-14.9) H 05/01/19 Unknown INR 1.23 (0.87-1.13) H 05/01/19 Unknown APTT 22.7 Sec. (24.2-36.6) L 05/01/19 Unknown POC ABG pH 7.462 (7.35-7.45) H 06/05/19 03:52 ABG pH 7.480 pH Units (7.350-7.450) H 06/07/19 04:30 POC ABG pCO2 39.8 (35-45) 06/05/19 03:52 ABG pCO2 37.4 mm Hg 06/07/19 04:30 POC ABG pO2 86 (80-105) 06/05/19 03:52 ABG pO2 77.0 mm Hg (80.0-90.0) L 06/07/19 04:30 POC ABG HCO3 28.4 (22-26 mml/L) 06/05/19 03:52 ABG HCO3 27.2 mmol/L (20.0-26.0) H 06/07/19 04:30 POC ABG Total CO2 30 (23-27mmol/L) 06/05/19 03:52 POC ABG O2 Sat 97 06/05/19 03:52 ABG O2 Saturation 96.7 % (95.0-99.0) 06/07/19 04:30 ABG O2 Content 9.5 (0.0-44) 06/07/19 04:30 POC ABG Base Excess 5 ((-2) - (+3)mmol/L) 06/05/19 03:52 ABG Base Excess 3.5 mmol/L (-2.0-3.0) H 06/07/19 04:30 ABG Hemoglobin 7.1 gm/dl (14.0-18.0) L 06/07/19 04:30 ABG Carboxyhemoglobin 2.1 % (0.0-5.0) 06/07/19 04:30 ABG Methemoglobin 0.4 % (0.0-1.5) 06/07/19 04:30 Oxyhemoglobin 94.2 % (95.0-99.0) L 06/07/19 04:30 FiO2 30 % 06/07/19 04:30 Sodium 148 mmol/L (137-145) H 06/12/19 03:21 Potassium 4.1 mmol/L (3.6-5.0) 06/12/19 03:21 Chloride 107.3 mmol/L (98-107) H 06/12/19 03:21 Carbon Dioxide 27 mmol/L (22-30) 06/12/19 03:21 Anion Gap 18 mmol/L 06/12/19 03:21 BUN 34 mg/dL (9-20) H 06/12/19 03:21 Creatinine 0.7 mg/dL (0.8-1.5) L 06/12/19 03:21 Estimated GFR > 60 ml/min 06/12/19 03:21 BUN/Creatinine Ratio 49 % 06/12/19 03:21 Glucose 194 mg/dL (75-100) H 06/12/19 03:21 POC Glucose 167 (70-105) H 06/12/19 11:28 Osmolality 327 Mosm/kg 05/07/19 13:45 Uric Acid 18.0 mg/dL (3.5-7.6) H 05/07/19 13:45 Calcium 8.7 mg/dL (8.4-10.2) 06/12/19 03:21 Phosphorus 3.70 mg/dL (2.5-4.5) 06/10/19 05:45 Magnesium 1.40 mg/dL (1.7-2.3) L 06/12/19 03:21 Total Bilirubin 0.50 mg/dL (0.1-1.2) 06/08/19 04:20 AST 23 units/L (5-40) 06/08/19 04:20 ALT 66 units/L (7-56) H 06/08/19 04:20 Alkaline Phosphatase 59 units/L (35-129) 06/08/19 04:20 Total Creatine Kinase 131 units/L (55-170) 05/02/19 04:41 CK-MB (CK-2) 5.2 ng/mL (0.0-4.0) H 05/02/19 04:41 CK-MB (CK-2) Rel Index 3.9 (0-4) 05/02/19 04:41 Troponin T 0.067 ng/mL (0.00-0.029) H D 05/02/19 04:41 NT-Pro-B Natriuret Pep 6831 pg/mL (0-450) H 05/01/19 Unknown Total Protein 5.5 g/dL (6.3-8.2) L 06/08/19 04:20 Albumin 2.9 g/dL (3.9-5) L 06/08/19 04:20 Albumin/Globulin Ratio 1.1 % 06/08/19 04:20 Triglycerides 173 mg/dL (2-149) H 05/17/19 Unknown Cholesterol 173 mg/dL (50-199) 05/02/19 00:06 LDL Cholesterol Direct 126 mg/dL (50-130) 05/02/19 00:06 HDL Cholesterol 18 mg/dL (40-59) L 05/02/19 00:06 Cholesterol/HDL Ratio 9.61 % 05/02/19 00:06 Procalcitonin 0.54 ng/mL (<0.15) 05/03/19 11:52 Urine Color Yellow (Yellow) 05/20/19 12:00 Urine Turbidity Cloudy (Clear) 05/20/19 12:00 Urine pH 5.0 (5.0-7.0) 05/20/19 12:00 Ur Specific Earp 1.015 (1.003-1.030) 05/20/19 12:00 Urine Protein 30 mg/dl mg/dL (Negative) 05/20/19 12:00 Urine Glucose (UA) Neg mg/dL (Negative) 05/20/19 12:00 Urine Ketones Neg mg/dL (Negative) 05/20/19 12:00 Urine Blood Lg (Negative) 05/20/19 12:00 Urine Nitrite Neg (Negative) 05/20/19 12:00 Urine Bilirubin Neg (Negative) 05/20/19 12:00 Urine Urobilinogen < 2.0 mg/dL (<2.0) 05/20/19 12:00 Ur Leukocyte Esterase Mod (Negative) 05/20/19 12:00 Urine WBC (Auto) 26.0 /HPF (0.0-6.0) H 05/20/19 12:00 Urine RBC (Auto) 83.0 /HPF (0.0-6.0) 05/20/19 12:00 Urine Bacteria (Auto) 1+ /HPF (Negative) 05/20/19 12:00 Uric Acid Crystals 3+ 05/03/19 10:55 Urine Mucus Few /HPF 05/20/19 12:00 Urine Yeast (Budding) 3+ /HPF 05/20/19 12:00 Urine Creatinine 292.8 mg/dL (0.1-20.0) H 05/07/19 22:40 Urine Sodium 11 mmol/L 05/07/19 22:40 Urine Total Protein 269 mg/dL (5-11.8) H 05/07/19 22:40 Vancomycin Trough 20.5 ug/mL (5.0-20.0) H 05/15/19 09:00 Random Vancomycin 11.5 ug/mL (0-40.0) 05/27/19 06:00 AMNA Screen Negative (Negative) 05/07/19 13:45 Hepatitis A IgM Ab Non-reactive (NonReactive) 05/07/19 13:45 Hep Bs Antigen Non-reactive (Negative) 05/07/19 13:45 Hep B Core IgM Ab Non-reactive (NonReactive) 05/07/19 13:45 Hepatitis C Antibody Non-reactive (NonReactive) 05/07/19 13:45 Active Medications - Current Medications Current Medications: Generic Name Dose Route Start Last Admin Trade Name Freq PRN Reason Stop Dose Admin Albumin Human 25 gm 05/19/19 10:47 Alburx 25% (Albumin) IV ARIANE PRN Hypotension Lipase/Protease/Amylase 1 each 05/14/19 15:01 Pancreaze 10,500 Unit FEEDTUBE PRN PRN For Clogged Feeding Tube Clonidine HCl 0.3 mg 06/06/19 20:00 06/06/19 20:38 Catapres-Tts Patch TD 0.3 mg Lao VICKEY Administration Dextrose 50 gm 05/01/19 20:24 D50w (25gm) Vial IV Q30MIN PRN Hypoglycemia Protocol Enoxaparin Sodium 30 mg 05/16/19 10:00 06/12/19 09:34 Enoxaparin SUB-Q 30 mg QDAY VICKEY Administration Famotidine 20 mg 05/16/19 10:00 06/12/19 10:50 Pepcid PO 20 mg DAILY VICKEY Administration Hydralazine HCl 20 mg 05/13/19 08:09 06/12/19 06:09 Apresoline IV 20 mg Q4HR PRN Administration SBP >/=160 Hydrochlorothiazide 50 mg 06/12/19 12:00 06/12/19 12:28 Hctz PO 50 mg QDAY VICKEY Administration Levetiracetam 750 mg/ Dextrose 107.5 mls @ 400 mls/hr 06/09/19 22:00 06/12/19 09:30 IV 400 mls/hr Q12HR VICKEY Administration Dextrose 1,000 mls @ 125 mls/hr 06/10/19 08:00 06/12/19 12:21 D5w IV 125 mls/hr DIRECT VICKEY Administration Nicardipine HCl 50 mg/ Sodium 250 mls @ 25 mls/hr 06/12/19 07:00 06/12/19 08:52 Chloride IV 10 mg/hr TITR VICKEY 50 mls/hr Titration Protocol 5 MG/HR Insulin Glargine 20 units 06/07/19 22:00 06/11/19 22:55 Lantus SUB-Q 20 units QHS VICKEY Administration Insulin Human Lispro 0 unit 06/01/19 14:00 06/12/19 12:20 Humalog SUB-Q 3 unit Q6HR VICKEY Administration Protocol Labetalol HCl 10 mg 06/11/19 22:48 06/12/19 01:20 Labetalol IV 10 mg Q4H PRN Administration BP >170/105; hold for HR <60 Labetalol HCl 100 mg 06/12/19 14:00 Labetalol PO Q8HR VICKEY Methylprednisolone Sodium Succinate 40 mg 06/10/19 14:00 06/12/19 06:09 Solu-Medrol IV 40 mg Q8HR VICKEY Administration Minoxidil 2.5 mg 06/06/19 22:00 06/12/19 10:50 Loniten PO 2.5 mg BID VICKEY Administration Simple Syrup 15 ml 05/14/19 15:01 Simple Syrup FEEDTUBE PRN PRN Hypoglycemia Simple Syrup 30 ml 05/14/19 15:01 Simple Syrup FEEDTUBE PRN PRN Hypoglycemia Sodium Bicarbonate 325 mg 05/14/19 15:01 Sodium Bicarbonate FEEDTUBE PRN PRN For Clogged Feeding Tube Nutrition/Malnutrition Assess - Dietary Evaluation Nutrition/Malnutrition Findings: Nutrition Notes Start: 05/04/19 12:54 Freq: Status: Active Protocol: Document 06/10/19 12:28 CW (Rec: 06/10/19 12:53 CW [id number]) Co-Sign 06/10/19 12:28 LP Nutrition Notes Initial or Follow up Reassessment Current Diagnosis Acute Kidney Injury,Sepsis, Respiratory Failure Other Pertinent Diagnosis on HD Current Diet Nepro 1.8 at 50 ml/hr Labs/Tests Na 150 BUN 49 BG 172 POC 165 Pertinent Medications D5w at 125 ml/hr Humalog Solumedrol Enoxaparin Height 6 ft 4 in Weight 257.2 kg [place] Body Weight (kg) 91.81 BMI 69.0 Weight change and time frame No wt change noted Weight Status Morbidly Obese Subjective/Other Information Pt tolerating Nepro at 50ml/hr . Pt on HD. Pt Extubated on . [employer] attempted swallow eval but was unable to complete D /T biPAP. Pt has elevated Na levels. Water flush increased to 250 ml q4hr. Percent of energy/protein needs met: 100%/43% Burn Absent Trauma Absent Current % PO Negligible Minimum of two criteria No physical signs of malnutrition #1 Nutrition Diagnosis Inadequate oral intake Diagnosis Progress(for reassessment Continues documentation) Is patient on ventilator? No Is Patient Ambulatory and/or Out of Bed No REE-([facility]-confined to bed) 4342.284 Kcal/Kg value to use for calculation 8 Approximate Energy Requirements Using 2057 kcal/Kg Calculation Used for Recommendations Kcal/kg Additional Notes PRO needs: 225 g (up to 2.5 g/ kg IBW) Fluid needs: 1 ml/kcal Nutrition Intervention Change Diet Order: Continue TF Nutrition Support: Nepro 1.8 at 50 ml/hr Flush with 250ml q4h Kcal 2,160 Protein (gm) 97 Fluid (mL) 872 Goal #1 TF tolerance Goal #2 Meet at least 75% kcal/PRO needs via TF Goal #3 diet advancement Anticipated Discharge Needs: Unable to determine at this time Follow-Up By: 06/15/19 Additional Comments Follow for TF tolerance/ diet advancement/ Na labs
--- NOTE | 2019-06-12 13:10 | Progress Note ---
Assessment and Plan # Acute kidney injury on HD: creatinine had worsened, potentially from vancomycin toxicity, His serum creatinine is 0.7 today. He is also making urine. However urine not be quantitated as he is incontinent. - Continue to hold dialysis for now and monitor his chemistries - agree with D5W for hypernatremia, may need to increase rate and/or start free water flushes with tube feeds if tolerating. Hypernatremia is improving - continue supportive measures, appreciate pulm and ID input - avoid nephrotoxins - daily labs # HTN: His blood pressure is still elevated. He is currently on a Cardene drip. If diuretic is needed for volume removal, would use high dose to challenge (160mg x1, assess, repeat prn). # Anemia: hemoglobin 9.9 , pRBC transfusion prn. Hold ESAs # Encephalopathy, seizure disorder, hypoxic respiratory failure, fevers: ID and pulm following, improving Subjective Date of service: 06/12/19 Principal diagnosis: HF; acute hypoxemic resp failure, SIRS, CARLA Interval history: Patient remains in ICU. Currently on a Cardene drip. Comfortable. On oxygen via nasal cannula at 4 L/m. O2 saturation is 98%. Objective - Vital Signs Vital signs: Vital Signs - 12hr 06/12/19 06/12/19 06/12/19 01:20 01:31 02:00 Temperature Pulse Rate 86 77 80 Pulse Rate [ From Monitor] Respiratory 14 14 Rate Blood Pressure 187/104 187/108 198/113 O2 Sat by Pulse 99 99 Oximetry 06/12/19 06/12/19 06/12/19 02:31 03:00 03:01 Temperature 97.6 F Pulse Rate 80 86 Pulse Rate [ From Monitor] Respiratory 15 19 Rate Blood Pressure 197/110 197/110 O2 Sat by Pulse 96 99 Oximetry 06/12/19 06/12/19 06/12/19 03:31 03:45 03:52 Temperature 97.8 F Pulse Rate 81 77 Pulse Rate [ From Monitor] Respiratory 26 H 13 Rate Blood Pressure 197/117 188/120 O2 Sat by Pulse 100 99 Oximetry 06/12/19 06/12/19 06/12/19 04:00 04:06 04:15 Temperature Pulse Rate 72 77 84 Pulse Rate [ From Monitor] Respiratory 10 L 17 Rate Blood Pressure 220/110 220/110 185/101 O2 Sat by Pulse 100 98 Oximetry 06/12/19 06/12/19 06/12/19 04:31 04:45 05:00 Temperature Pulse Rate 103 H 90 76 Pulse Rate [ From Monitor] Respiratory 26 H Rate Blood Pressure 186/107 201/110 185/106 O2 Sat by Pulse 98 97 100 Oximetry 06/12/19 06/12/19 06/12/19 06:00 06:09 06:46 Temperature Pulse Rate 84 78 Pulse Rate [ 84 From Monitor] Respiratory 19 20 Rate Blood Pressure 213/111 O2 Sat by Pulse 95 98 Oximetry 06/12/19 06/12/19 06/12/19 07:00 07:15 07:30 Temperature Pulse Rate 84 86 86 Pulse Rate [ From Monitor] Respiratory 22 17 20 Rate Blood Pressure 241/109 241/109 224/86 O2 Sat by Pulse 93 92 96 Oximetry 06/12/19 06/12/19 06/12/19 07:45 08:00 08:15 Temperature 99 F Pulse Rate 86 88 92 H Pulse Rate [ From Monitor] Respiratory 16 18 24 Rate Blood Pressure 228/99 198/102 219/117 O2 Sat by Pulse 95 98 97 Oximetry 06/12/19 06/12/19 06/12/19 08:30 08:45 09:01 Temperature Pulse Rate 88 93 H 95 H Pulse Rate [ From Monitor] Respiratory 16 19 30 H Rate Blood Pressure 230/99 216/101 218/93 O2 Sat by Pulse 97 97 95 Oximetry 06/12/19 06/12/19 06/12/19 09:15 09:31 09:45 Temperature Pulse Rate 95 H 95 H 94 H Pulse Rate [ From Monitor] Respiratory 17 28 H 22 Rate Blood Pressure 197/101 227/98 206/92 O2 Sat by Pulse 96 94 97 Oximetry 06/12/19 06/12/19 06/12/19 10:00 10:15 10:30 Temperature Pulse Rate 91 H 95 H 93 H Pulse Rate [ From Monitor] Respiratory 13 12 21 Rate Blood Pressure 229/145 229/145 220/106 O2 Sat by Pulse 92 96 95 Oximetry 06/12/19 06/12/19 06/12/19 10:45 11:00 12:23 Temperature Pulse Rate 90 92 H 94 H Pulse Rate [ From Monitor] Respiratory 21 18 Rate Blood Pressure 200/104 207/90 196/99 O2 Sat by Pulse 96 97 Oximetry - General Appearance General appearance: well-developed, well-nourished, appears stated age, obese EENT: PERRL, mucous membranes moist Neck: no JVD, no thyromegaly, no carotid bruit, supple, other (left IJ PermCath in place) Respiratory: Present: Clear to Ascultation Cardiology: regular, normal heart rate, S1S2, no murmurs Gastrointestinal: normal, normoactive bowel sounds Integumentary: no rash, warm and dry - Lab 06/12/19 03:21 06/12/19 03:21 Most recent lab results ABG pH 7.480 pH Units (7.350-7.450) H 06/07/19 04:30 ABG pCO2 37.4 mm Hg 06/07/19 04:30 ABG pO2 77.0 mm Hg (80.0-90.0) L 06/07/19 04:30 ABG HCO3 27.2 mmol/L (20.0-26.0) H 06/07/19 04:30 ABG O2 Saturation 96.7 % (95.0-99.0) 06/07/19 04:30 Calcium 8.7 mg/dL (8.4-10.2) 06/12/19 03:21 Phosphorus 3.70 mg/dL (2.5-4.5) 06/10/19 05:45 Magnesium 1.40 mg/dL (1.7-2.3) L 06/12/19 03:21 Urine Creatinine 292.8 mg/dL (0.1-20.0) H 05/07/19 22:40 Urine Sodium 11 mmol/L 05/07/19 22:40 Urine Total Protein 269 mg/dL (5-11.8) H 05/07/19 22:40 Medications & Allergies - Medications Allergies/Adverse Reactions: Allergies No Known Allergies Allergy (Verified 05/01/19 20:27) Home Medications: Home Medications Medication Instructions Recorded Confirmed Last Taken Type No Known Home Medications [No 05/03/19 05/03/19 Unknown History Reported Home Medications] Active Medications: Generic Name Dose Route Start Last Admin Trade Name Freq PRN Reason Stop Dose Admin Albumin Human 25 gm 05/19/19 10:47 Alburx 25% (Albumin) IV ARIANE PRN Hypotension Lipase/Protease/Amylase 1 each 05/14/19 15:01 Pancreaze 10,500 Unit FEEDTUBE PRN PRN For Clogged Feeding Tube Clonidine HCl 0.3 mg 06/06/19 20:00 06/06/19 20:38 Catapres-Tts Patch TD 0.3 mg Lao VICKEY Administration Dextrose 50 gm 05/01/19 20:24 D50w (25gm) Vial IV Q30MIN PRN Hypoglycemia Protocol Enoxaparin Sodium 30 mg 05/16/19 10:00 06/12/19 09:34 Enoxaparin SUB-Q 30 mg QDAY VICKEY Administration Famotidine 20 mg 05/16/19 10:00 06/12/19 10:50 Pepcid PO 20 mg DAILY VICKEY Administration Hydralazine HCl 20 mg 05/13/19 08:09 06/12/19 06:09 Apresoline IV 20 mg Q4HR PRN Administration SBP >/=160 Hydrochlorothiazide 50 mg 06/12/19 12:00 06/12/19 12:28 Hctz PO 50 mg QDAY VICKEY Administration Levetiracetam 750 mg/ Dextrose 107.5 mls @ 400 mls/hr 06/09/19 22:00 06/12/19 09:30 IV 400 mls/hr Q12HR VICKEY Administration Dextrose 1,000 mls @ 125 mls/hr 06/10/19 08:00 06/12/19 12:21 D5w IV 125 mls/hr DIRECT VICKEY Administration Nicardipine HCl 50 mg/ Sodium 250 mls @ 25 mls/hr 06/12/19 07:00 06/12/19 08:52 Chloride IV 10 mg/hr TITR VICKEY 50 mls/hr Titration Protocol 5 MG/HR Insulin Glargine 20 units 06/07/19 22:00 06/11/19 22:55 Lantus SUB-Q 20 units QHS VICKEY Administration Insulin Human Lispro 0 unit 06/01/19 14:00 06/12/19 12:20 Humalog SUB-Q 3 unit Q6HR VICKEY Administration Protocol Labetalol HCl 10 mg 06/11/19 22:48 06/12/19 01:20 Labetalol IV 10 mg Q4H PRN Administration BP >170/105; hold for HR <60 Labetalol HCl 100 mg 06/12/19 14:00 Labetalol PO Q8HR VICKEY Methylprednisolone Sodium Succinate 40 mg 06/10/19 14:00 06/12/19 06:09 Solu-Medrol IV 40 mg Q8HR VICKEY Administration Minoxidil 2.5 mg 06/06/19 22:00 06/12/19 10:50 Loniten PO 2.5 mg BID VICKEY Administration Simple Syrup 15 ml 05/14/19 15:01 Simple Syrup FEEDTUBE PRN PRN Hypoglycemia Simple Syrup 30 ml 05/14/19 15:01 Simple Syrup FEEDTUBE PRN PRN Hypoglycemia Sodium Bicarbonate 325 mg 05/14/19 15:01 Sodium Bicarbonate FEEDTUBE PRN PRN For Clogged Feeding Tube
[2019-06-12] MEDS: INSULIN GLARGINE 100 UNITS/ML SUB-Q SCH (21:17)
[2019-06-13] MEDS: INSULIN LISPRO 100 UNIT/ML SUB-Q SCH ×6 (00:43→23:43)
[2019-06-13] MEDS: niCARdipine 50 MG in SODIUM CHLORIDE 0.9% 250ML 230 ML IV SCH ×2 (02:00→10:00)
[2019-06-13] MEDS: DEXTROSE 5% IN WATER 1,000 ML IV SCH (05:00)
[2019-06-13 05:35] LABS: BUN/Creatinine Ratio 39; Blood Urea Nitrogen 27 mg/dL (9-20); Calcium 8.6 mg/dL (8.4-10.2); Hemolysis Index 5
[2019-06-13] MEDS: methylPREDNISolone Sod Succinate 40 MG/1 ML INJ IV SCH ×3 (05:50→22:12)
[2019-06-13] MEDS: ENOXAPARIN 30 MG/0.3 ML INJ SUB-Q SCH (09:48)
[2019-06-13] MEDS: FAMOTIDINE 20 MG TAB PO SCH (09:48)
[2019-06-13] MEDS: MINOXIDIL 2.5 MG TAB PO SCH ×2 (09:48→22:12)
[2019-06-13] MEDS: hydroCHLOROthiazide 25 MG TAB PO SCH (09:49)
[2019-06-13] MEDS: levETIRAcetam 750 MG in DEXTROSE 5% IN WATER 100 ML IV SCH ×2 (10:23→22:12)
--- NOTE | 2019-06-13 11:44 | Progress Note ---
Assessment and Plan 34 y/o male with acute hypoxic, hypercapnic respiratory failure currently ventilated and sedated, now with persistent fevers and seizure and on HD 06/12/2019: Started HCTZ 50 daily and Labetalol 100 TID. Will increase Labeta lol to 200 TID. Already on Clonidine patch. Continue Minoxidil. Will start to wean drip. PT/OT. Feeds through NG now that this is in place. Will need speech re-evaluation. Will order NT suctioning at least [id number] for the next 24 hours. 06/11/2019: Bipap at night and PRN. Na levels are increasing. Agree with D5W. Unable to place DH, several nurses tried. Will ask speech to come by and reassess now that patient is more willing to cooperate. . Continue PT/OT, sat up on side of bed yesterday. Continue IMCU monitoring for now. As stated below, patient was intubated for 37 days. 2. 37 days of intubation. Extubated on 06/07/2019 Subjective Date of service: 06/13/19 Principal diagnosis: HF; acute hypoxemic resp failure, SIRS, CARLA Interval history: Still on Cardene at 2.5. Tolerated PO meds with some improvement in BP. Minoxidil restarted by nephro. needs nt Suctioning and has been placed on Venti mask this am. Objective Vital Signs - 12hr 06/12/19 06/13/19 06/13/19 23:45 00:00 00:15 Temperature Pulse Rate 92 H 92 H 96 H Pulse Rate [ 92 H From Monitor] Respiratory 14 18 12 Rate Blood Pressure 136/70 133/77 139/80 O2 Sat by Pulse 96 96 95 Oximetry 06/13/19 06/13/19 06/13/19 00:31 00:32 00:45 Temperature Pulse Rate 91 H 91 H 93 H Pulse Rate [ From Monitor] Respiratory 20 20 30 H Rate Blood Pressure 136/88 136/88 129/78 O2 Sat by Pulse 95 95 94 Oximetry 06/13/19 06/13/19 06/13/19 01:01 01:15 01:20 Temperature Pulse Rate 91 H 92 H 92 H Pulse Rate [ 92 H From Monitor] Respiratory 16 15 18 Rate Blood Pressure 144/80 146/77 O2 Sat by Pulse 96 96 96 Oximetry 06/13/19 06/13/19 06/13/19 01:31 01:45 02:01 Temperature Pulse Rate 100 H 99 H 96 H Pulse Rate [ From Monitor] Respiratory 16 14 13 Rate Blood Pressure 52/35 149/60 150/105 O2 Sat by Pulse 95 95 94 Oximetry 06/13/19 06/13/19 06/13/19 02:15 02:30 02:45 Temperature Pulse Rate 98 H 96 H 97 H Pulse Rate [ From Monitor] Respiratory 22 18 14 Rate Blood Pressure 150/105 162/96 135/68 O2 Sat by Pulse 90 94 91 Oximetry 06/13/19 06/13/19 06/13/19 03:01 03:15 03:29 Temperature 98.6 F Pulse Rate 99 H 99 H Pulse Rate [ From Monitor] Respiratory 15 20 Rate Blood Pressure 153/75 135/42 O2 Sat by Pulse 93 95 Oximetry 06/13/19 06/13/19 06/13/19 03:30 03:44 03:45 Temperature Pulse Rate 100 H 98 H 99 H Pulse Rate [ From Monitor] Respiratory 18 20 19 Rate Blood Pressure 146/94 146/94 129/93 O2 Sat by Pulse 93 94 94 Oximetry 06/13/19 06/13/19 06/13/19 04:00 04:15 04:30 Temperature Pulse Rate 102 H 102 H 103 H Pulse Rate [ From Monitor] Respiratory 19 25 H 14 Rate Blood Pressure 131/92 131/92 163/108 O2 Sat by Pulse 96 91 93 Oximetry 06/13/19 06/13/19 06/13/19 04:45 05:00 05:15 Temperature Pulse Rate 103 H 106 H 103 H Pulse Rate [ From Monitor] Respiratory 23 18 23 Rate Blood Pressure 163/108 170/98 181/85 O2 Sat by Pulse 90 88 88 Oximetry 06/13/19 06/13/19 06/13/19 05:20 05:30 05:45 Temperature Pulse Rate 103 H 107 H 102 H Pulse Rate [ From Monitor] Respiratory 16 16 23 Rate Blood Pressure 193/76 188/71 O2 Sat by Pulse 92 89 93 Oximetry 06/13/19 06/13/19 06/13/19 05:49 06:00 06:15 Temperature Pulse Rate 104 H 104 H 104 H Pulse Rate [ From Monitor] Respiratory 29 H 26 H Rate Blood Pressure 188/71 167/84 161/77 O2 Sat by Pulse 89 88 Oximetry 06/13/19 06/13/19 06/13/19 06:31 06:45 07:00 Temperature Pulse Rate 99 H 100 H 97 H Pulse Rate [ From Monitor] Respiratory 17 25 H 30 H Rate Blood Pressure 160/70 140/104 157/79 O2 Sat by Pulse 90 88 93 Oximetry 06/13/19 06/13/19 06/13/19 07:15 07:30 07:45 Temperature Pulse Rate 97 H 98 H 99 H Pulse Rate [ From Monitor] Respiratory 19 24 22 Rate Blood Pressure 163/94 176/71 176/71 O2 Sat by Pulse 93 91 89 Oximetry 06/13/19 06/13/19 06/13/19 08:00 08:15 08:30 Temperature 99.7 F H Pulse Rate 98 H 96 H 99 H Pulse Rate [ 102 H From Monitor] Respiratory 12 22 26 H Rate Blood Pressure 167/79 149/116 161/74 O2 Sat by Pulse 93 95 92 Oximetry 06/13/19 06/13/19 06/13/19 08:45 09:00 09:15 Temperature Pulse Rate 99 H 101 H 102 H Pulse Rate [ From Monitor] Respiratory 21 17 14 Rate Blood Pressure 143/92 152/77 146/76 O2 Sat by Pulse 93 93 91 Oximetry 06/13/19 06/13/19 06/13/19 09:31 09:45 10:00 Temperature Pulse Rate 102 H 104 H 103 H Pulse Rate [ From Monitor] Respiratory 20 21 21 Rate Blood Pressure 125/72 125/72 158/89 O2 Sat by Pulse 89 91 98 Oximetry 06/13/19 06/13/19 06/13/19 10:15 10:30 10:45 Temperature Pulse Rate 99 H 100 H 102 H Pulse Rate [ From Monitor] Respiratory 16 25 H 30 H Rate Blood Pressure 162/79 172/82 166/92 O2 Sat by Pulse 91 96 98 Oximetry 06/13/19 11:00 Temperature Pulse Rate 99 H Pulse Rate [ From Monitor] Respiratory 25 H Rate Blood Pressure 166/82 O2 Sat by Pulse 95 Oximetry Constitutional: no acute distress, other (morbidly obese male, on vent, orally intubated) Eyes: non-icteric ENT: oropharynx moist Neck: other (extremely large in circumference) Effort: normal Ascultation: Bilateral: diminished breath sounds (secondary to body habitus) Cardiovascular: regular rate and rhythm (no mrg) Gastrointestinal: normoactive bowel sounds, soft, non-tender Integumentary: other (L hand is wrapped) Extremities: no cyanosis, pink and warm, other (1+ generalized edema) Neurologic: unable to assess Psychiatric: other (unable to assess) CBC and BMP: 06/12/19 03:21 06/13/19 04:32 ABG, PT/INR, D-dimer: ABG POC ABG pH 7.462 (7.35-7.45) H 06/05/19 03:52 ABG pH 7.480 pH Units (7.350-7.450) H 06/07/19 04:30 POC ABG pCO2 39.8 (35-45) 06/05/19 03:52 ABG pCO2 37.4 mm Hg 06/07/19 04:30 POC ABG pO2 86 (80-105) 06/05/19 03:52 ABG pO2 77.0 mm Hg (80.0-90.0) L 06/07/19 04:30 POC ABG HCO3 28.4 (22-26 mml/L) 06/05/19 03:52 POC ABG Total CO2 30 (23-27mmol/L) 06/05/19 03:52 POC ABG O2 Sat 97 06/05/19 03:52 ABG O2 Saturation 96.7 % (95.0-99.0) 06/07/19 04:30 PT/INR, D-dimer PT 15.4 Sec. (12.2-14.9) H 05/01/19 Unknown INR 1.23 (0.87-1.13) H 05/01/19 Unknown Abnormal lab findings: Abnormal Labs 05/01/19 05/01/19 05/01/19 17:50 19:26 22:36 WBC RBC Hgb Hct MCV MCH MCHC RDW Lymph % (Auto) [place] % (Auto) Eos % (Auto) Lymph # [place] # Eos # Seg Neutrophils % Seg Neuts % (Manual) Lymphocytes % (Manual) Monocytes % (Manual) Eosinophils % (Manual) Nucleated RBC % Seg Neutrophils # Seg Neutrophils # Man Lymphocytes # (Manual) Monocytes # (Manual) Eosinophils # (Manual) PT INR APTT POC ABG pH 7.272 L 7.331 L ABG pH POC ABG pCO2 52.8 H POC ABG pO2 ABG pO2 ABG HCO3 ABG O2 Saturation ABG Base Excess ABG Hemoglobin Oxyhemoglobin Sodium 136 L Potassium 6.5 H* Chloride 97.2 L Carbon Dioxide BUN 60 H Creatinine Glucose 113 H POC Glucose Uric Acid Calcium Phosphorus Magnesium 2.40 H AST 139 H ALT 154 H Total Creatine Kinase CK-MB (CK-2) Troponin T NT-Pro-B Natriuret Pep Total Protein Albumin 3.8 L Triglycerides HDL Cholesterol Urine WBC (Auto) Urine Creatinine Urine Total Protein Vancomycin Trough 05/01/19 05/01/19 05/01/19 Unknown Unknown Unknown WBC 16.1 H RBC Hgb Hct MCV MCH MCHC RDW 17.2 H Lymph % (Auto) [place] % (Auto) 9.6 H Eos % (Auto) Lymph # [place] # 1.5 H Eos # Seg Neutrophils % 73.0 H Seg Neuts % (Manual) Lymphocytes % (Manual) Monocytes % (Manual) Eosinophils % (Manual) Nucleated RBC % Seg Neutrophils # 11.7 H Seg Neutrophils # Man Lymphocytes # (Manual) Monocytes # (Manual) Eosinophils # (Manual) PT 15.4 H INR 1.23 H APTT 22.7 L POC ABG pH ABG pH POC ABG pCO2 POC ABG pO2 ABG pO2 ABG HCO3 ABG O2 Saturation ABG Base Excess ABG Hemoglobin Oxyhemoglobin Sodium Potassium Chloride Carbon Dioxide BUN Creatinine Glucose POC Glucose Uric Acid Calcium Phosphorus Magnesium AST ALT Total Creatine Kinase CK-MB (CK-2) Troponin T NT-Pro-B Natriuret Pep 6831 H Total Protein Albumin Triglycerides HDL Cholesterol Urine WBC (Auto) Urine Creatinine Urine Total Protein Vancomycin Trough 05/01/19 05/02/19 05/02/19 Unknown 00:06 00:06 WBC RBC Hgb Hct MCV MCH MCHC RDW Lymph % (Auto) [place] % (Auto) Eos % (Auto) Lymph # [place] # Eos # Seg Neutrophils % Seg Neuts % (Manual) Lymphocytes % (Manual) Monocytes % (Manual) Eosinophils % (Manual) Nucleated RBC % Seg Neutrophils # Seg Neutrophils # Man Lymphocytes # (Manual) Monocytes # (Manual) Eosinophils # (Manual) PT INR APTT POC ABG pH ABG pH POC ABG pCO2 POC ABG pO2 ABG pO2 ABG HCO3 ABG O2 Saturation ABG Base Excess ABG Hemoglobin Oxyhemoglobin Sodium Potassium Chloride Carbon Dioxide BUN Creatinine Glucose POC Glucose Uric Acid Calcium Phosphorus 4.90 H Magnesium AST ALT Total Creatine Kinase 226 H CK-MB (CK-2) 5.7 H Troponin T 0.044 H NT-Pro-B Natriuret Pep Total Protein Albumin Triglycerides 182 H HDL Cholesterol 18 L Urine WBC (Auto) Urine Creatinine Urine Total Protein Vancomycin Trough 05/02/19 05/02/19 05/02/19 02:08 04:40 04:41 WBC 17.6 H RBC Hgb Hct MCV MCH 27 L MCHC RDW 17.4 H Lymph % (Auto) 10.2 L [place] % (Auto) 11.0 H Eos % (Auto) Lymph # [place] # 1.9 H Eos # Seg Neutrophils % 78.0 H Seg Neuts % (Manual) Lymphocytes % (Manual) Monocytes % (Manual) Eosinophils % (Manual) Nucleated RBC % Seg Neutrophils # 13.8 H Seg Neutrophils # Man Lymphocytes # (Manual) Monocytes # (Manual) Eosinophils # (Manual) PT INR APTT POC ABG pH ABG pH POC ABG pCO2 46.8 H POC ABG pO2 63 L ABG pO2 ABG HCO3 ABG O2 Saturation ABG Base Excess ABG Hemoglobin Oxyhemoglobin Sodium Potassium Chloride 96.3 L Carbon Dioxide BUN 63 H Creatinine 1.7 H Glucose POC Glucose Uric Acid Calcium Phosphorus Magnesium AST ALT Total Creatine Kinase CK-MB (CK-2) Troponin T NT-Pro-B Natriuret Pep Total Protein Albumin Triglycerides HDL Cholesterol Urine WBC (Auto) Urine Creatinine Urine Total Protein Vancomycin Trough 05/02/19 05/02/19 05/02/19 04:41 04:41 16:05 WBC RBC Hgb Hct MCV MCH MCHC RDW Lymph % (Auto) [place] % (Auto) Eos % (Auto) Lymph # [place] # Eos # Seg Neutrophils % Seg Neuts % (Manual) Lymphocytes % (Manual) Monocytes % (Manual) Eosinophils % (Manual) Nucleated RBC % Seg Neutrophils # Seg Neutrophils # Man Lymphocytes # (Manual) Monocytes # (Manual) Eosinophils # (Manual) PT INR APTT POC ABG pH ABG pH POC ABG pCO2 POC ABG pO2 ABG pO2 66.6 L ABG HCO3 31.9 H ABG O2 Saturation 92.5 L ABG Base Excess 5.8 H ABG Hemoglobin 13.3 L Oxyhemoglobin 90.6 L Sodium Potassium Chloride 97.2 L Carbon Dioxide BUN 61 H Creatinine 1.8 H Glucose POC Glucose Uric Acid Calcium Phosphorus Magnesium AST ALT Total Creatine Kinase CK-MB (CK-2) 5.2 H Troponin T 0.067 H D NT-Pro-B Natriuret Pep Total Protein Albumin Triglycerides HDL Cholesterol Urine WBC (Auto) Urine Creatinine Urine Total Protein Vancomycin Trough 05/02/19 05/03/19 05/03/19 20:39 04:35 05:05 WBC 11.8 H RBC Hgb Hct MCV MCH 27 L MCHC 31 L RDW 17.2 H Lymph % (Auto) [place] % (Auto) Eos % (Auto) Lymph # [place] # Eos # Seg Neutrophils % Seg Neuts % (Manual) Lymphocytes % (Manual) Monocytes % (Manual) Eosinophils % (Manual) Nucleated RBC % Seg Neutrophils # Seg Neutrophils # Man Lymphocytes # (Manual) Monocytes # (Manual) Eosinophils # (Manual) PT INR APTT POC ABG pH ABG pH POC ABG pCO2 53.6 H 54.0 H POC ABG pO2 55 L 63 L ABG pO2 ABG HCO3 ABG O2 Saturation ABG Base Excess ABG Hemoglobin Oxyhemoglobin Sodium Potassium Chloride Carbon Dioxide BUN Creatinine Glucose POC Glucose Uric Acid Calcium Phosphorus Magnesium AST ALT Total Creatine Kinase CK-MB (CK-2) Troponin T NT-Pro-B Natriuret Pep Total Protein Albumin Triglycerides HDL Cholesterol Urine WBC (Auto) Urine Creatinine Urine Total Protein Vancomycin Trough 05/03/19 05/03/19 05/03/19 05:05 10:55 16:48 WBC RBC Hgb Hct MCV MCH MCHC RDW Lymph % (Auto) [place] % (Auto) Eos % (Auto) Lymph # [place] # Eos # Seg Neutrophils % Seg Neuts % (Manual) Lymphocytes % (Manual) Monocytes % (Manual) Eosinophils % (Manual) Nucleated RBC % Seg Neutrophils # Seg Neutrophils # Man Lymphocytes # (Manual) Monocytes # (Manual) Eosinophils # (Manual) PT INR APTT POC ABG pH 7.604 H ABG pH POC ABG pCO2 POC ABG pO2 58 L ABG pO2 ABG HCO3 ABG O2 Saturation ABG Base Excess ABG Hemoglobin Oxyhemoglobin Sodium Potassium Chloride Carbon Dioxide BUN 52 H Creatinine 1.9 H Glucose 103 H POC Glucose Uric Acid Calcium Phosphorus Magnesium AST ALT Total Creatine Kinase CK-MB (CK-2) Troponin T NT-Pro-B Natriuret Pep Total Protein Albumin Triglycerides HDL Cholesterol Urine WBC (Auto) 33.0 H Urine Creatinine Urine Total Protein Vancomycin Trough 05/04/19 05/04/19 05/04/19 04:49 06:50 06:50 WBC 16.0 H RBC Hgb Hct MCV MCH 27 L MCHC 31 L RDW 17.8 H Lymph % (Auto) [place] % (Auto) Eos % (Auto) Lymph # [place] # Eos # Seg Neutrophils % Seg Neuts % (Manual) Lymphocytes % (Manual) Monocytes % (Manual) Eosinophils % (Manual) Nucleated RBC % Seg Neutrophils # Seg Neutrophils # Man Lymphocytes # (Manual) Monocytes # (Manual) Eosinophils # (Manual) PT INR APTT POC ABG pH 7.273 L ABG pH POC ABG pCO2 POC ABG pO2 ABG pO2 ABG HCO3 ABG O2 Saturation ABG Base Excess ABG Hemoglobin Oxyhemoglobin Sodium 148 H Potassium 5.5 H Chloride Carbon Dioxide BUN 53 H Creatinine 3.3 H D Glucose 106 H POC Glucose Uric Acid Calcium 8.3 L Phosphorus Magnesium AST ALT Total Creatine Kinase CK-MB (CK-2) Troponin T NT-Pro-B Natriuret Pep Total Protein Albumin Triglycerides HDL Cholesterol Urine WBC (Auto) Urine Creatinine Urine Total Protein Vancomycin Trough 05/05/19 05/05/19 05/05/19 00:05 04:30 05:00 WBC RBC Hgb Hct MCV MCH MCHC RDW Lymph % (Auto) [place] % (Auto) Eos % (Auto) Lymph # [place] # Eos # Seg Neutrophils % Seg Neuts % (Manual) Lymphocytes % (Manual) Monocytes % (Manual) Eosinophils % (Manual) Nucleated RBC % Seg Neutrophils # Seg Neutrophils # Man Lymphocytes # (Manual) Monocytes # (Manual) Eosinophils # (Manual) PT INR APTT POC ABG pH 7.225 L ABG pH POC ABG pCO2 > 70 H POC ABG pO2 ABG pO2 ABG HCO3 ABG O2 Saturation ABG Base Excess ABG Hemoglobin Oxyhemoglobin Sodium 151 H Potassium 5.1 H Chloride Carbon Dioxide BUN 64 H Creatinine 3.5 H Glucose 117 H POC Glucose 141 H Uric Acid Calcium 7.5 L Phosphorus Magnesium AST 93 H ALT 65 H Total Creatine Kinase CK-MB (CK-2) Troponin T NT-Pro-B Natriuret Pep Total Protein Albumin 2.9 L Triglycerides HDL Cholesterol Urine WBC (Auto) Urine Creatinine Urine Total Protein Vancomycin Trough 05/05/19 05/05/19 05/05/19 05:00 12:02 17:46 WBC 12.0 H RBC Hgb 11.3 L Hct MCV MCH 27 L MCHC 30 L RDW 18.4 H Lymph % (Auto) 7.9 L [place] % (Auto) 10.2 H Eos % (Auto) Lymph # 1.0 L [place] # 1.2 H Eos # Seg Neutrophils % 80.8 H Seg Neuts % (Manual) Lymphocytes % (Manual) Monocytes % (Manual) Eosinophils % (Manual) Nucleated RBC % Seg Neutrophils # 9.7 H Seg Neutrophils # Man Lymphocytes # (Manual) Monocytes # (Manual) Eosinophils # (Manual) PT INR APTT POC ABG pH ABG pH POC ABG pCO2 POC ABG pO2 ABG pO2 ABG HCO3 ABG O2 Saturation ABG Base Excess ABG Hemoglobin Oxyhemoglobin Sodium Potassium Chloride Carbon Dioxide BUN Creatinine Glucose POC Glucose 125 H 112 H Uric Acid Calcium Phosphorus Magnesium AST ALT Total Creatine Kinase CK-MB (CK-2) Troponin T NT-Pro-B Natriuret Pep Total Protein Albumin Triglycerides HDL Cholesterol Urine WBC (Auto) Urine Creatinine Urine Total Protein Vancomycin Trough 05/05/19 05/06/19 05/06/19 23:42 03:58 04:45 WBC 11.4 H RBC Hgb 10.7 L Hct 34.2 L MCV MCH 27 L MCHC 31 L RDW 16.9 H Lymph % (Auto) [place] % (Auto) Eos % (Auto) Lymph # [place] # Eos # Seg Neutrophils % Seg Neuts % (Manual) Lymphocytes % (Manual) Monocytes % (Manual) Eosinophils % (Manual) Nucleated RBC % Seg Neutrophils # Seg Neutrophils # Man Lymphocytes # (Manual) Monocytes # (Manual) Eosinophils # (Manual) PT INR APTT POC ABG pH ABG pH POC ABG pCO2 62.4 H POC ABG pO2 111 H ABG pO2 ABG HCO3 ABG O2 Saturation ABG Base Excess ABG Hemoglobin Oxyhemoglobin Sodium Potassium Chloride Carbon Dioxide BUN Creatinine Glucose POC Glucose 128 H Uric Acid Calcium Phosphorus Magnesium AST ALT Total Creatine Kinase CK-MB (CK-2) Troponin T NT-Pro-B Natriuret Pep Total Protein Albumin Triglycerides HDL Cholesterol Urine WBC (Auto) Urine Creatinine Urine Total Protein Vancomycin Trough 05/06/19 05/06/19 05/06/19 04:45 05:33 12:30 WBC RBC Hgb Hct MCV MCH MCHC RDW Lymph % (Auto) [place] % (Auto) Eos % (Auto) Lymph # [place] # Eos # Seg Neutrophils % Seg Neuts % (Manual) Lymphocytes % (Manual) Monocytes % (Manual) Eosinophils % (Manual) Nucleated RBC % Seg Neutrophils # Seg Neutrophils # Man Lymphocytes # (Manual) Monocytes # (Manual) Eosinophils # (Manual) PT INR APTT POC ABG pH ABG pH POC ABG pCO2 POC ABG pO2 ABG pO2 ABG HCO3 ABG O2 Saturation ABG Base Excess ABG Hemoglobin Oxyhemoglobin Sodium 149 H Potassium Chloride Carbon Dioxide 31 H BUN 67 H Creatinine 3.2 H Glucose 125 H POC Glucose 117 H 116 H Uric Acid Calcium 7.5 L Phosphorus Magnesium AST ALT Total Creatine Kinase CK-MB (CK-2) Troponin T NT-Pro-B Natriuret Pep Total Protein Albumin Triglycerides HDL Cholesterol Urine WBC (Auto) Urine Creatinine Urine Total Protein Vancomycin Trough 05/06/19 05/06/19 05/07/19 18:34 23:16 05:22 WBC RBC Hgb Hct MCV MCH MCHC RDW Lymph % (Auto) [place] % (Auto) Eos % (Auto) Lymph # [place] # Eos # Seg Neutrophils % Seg Neuts % (Manual) Lymphocytes % (Manual) Monocytes % (Manual) Eosinophils % (Manual) Nucleated RBC % Seg Neutrophils # Seg Neutrophils # Man Lymphocytes # (Manual) Monocytes # (Manual) Eosinophils # (Manual) PT INR APTT POC ABG pH ABG pH POC ABG pCO2 POC ABG pO2 ABG pO2 ABG HCO3 ABG O2 Saturation ABG Base Excess ABG Hemoglobin Oxyhemoglobin Sodium Potassium Chloride Carbon Dioxide BUN Creatinine Glucose POC Glucose 128 H 143 H 166 H Uric Acid Calcium Phosphorus Magnesium AST ALT Total Creatine Kinase CK-MB (CK-2) Troponin T NT-Pro-B Natriuret Pep Total Protein Albumin Triglycerides HDL Cholesterol Urine WBC (Auto) Urine Creatinine Urine Total Protein Vancomycin Trough 05/07/19 05/07/19 05/07/19 06:33 07:03 09:35 WBC RBC Hgb Hct MCV MCH MCHC RDW Lymph % (Auto) [place] % (Auto) Eos % (Auto) Lymph # [place] # Eos # Seg Neutrophils % Seg Neuts % (Manual) Lymphocytes % (Manual) Monocytes % (Manual) Eosinophils % (Manual) Nucleated RBC % Seg Neutrophils # Seg Neutrophils # Man Lymphocytes # (Manual) Monocytes # (Manual) Eosinophils # (Manual) PT INR APTT POC ABG pH 7.263 L 7.288 L ABG pH POC ABG pCO2 POC ABG pO2 51 L 56 L ABG pO2 ABG HCO3 ABG O2 Saturation ABG Base Excess ABG Hemoglobin Oxyhemoglobin Sodium Potassium Chloride Carbon Dioxide BUN 76 H Creatinine 3.2 H Glucose 147 H POC Glucose Uric Acid Calcium 7.9 L Phosphorus Magnesium AST ALT Total Creatine Kinase CK-MB (CK-2) Troponin T NT-Pro-B Natriuret Pep Total Protein Albumin Triglycerides HDL Cholesterol Urine WBC (Auto) Urine Creatinine Urine Total Protein Vancomycin Trough 05/07/19 05/07/19 05/07/19 09:35 12:17 13:45 WBC 13.4 H RBC Hgb 11.6 L Hct MCV MCH 27 L MCHC 31 L RDW 17.5 H Lymph % (Auto) [place] % (Auto) Eos % (Auto) Lymph # [place] # Eos # Seg Neutrophils % Seg Neuts % (Manual) Lymphocytes % (Manual) Monocytes % (Manual) Eosinophils % (Manual) Nucleated RBC % Seg Neutrophils # Seg Neutrophils # Man Lymphocytes # (Manual) Monocytes # (Manual) Eosinophils # (Manual) PT INR APTT POC ABG pH ABG pH POC ABG pCO2 POC ABG pO2 ABG pO2 ABG HCO3 ABG O2 Saturation ABG Base Excess ABG Hemoglobin Oxyhemoglobin Sodium Potassium Chloride Carbon Dioxide BUN Creatinine Glucose POC Glucose 130 H Uric Acid 18.0 H Calcium Phosphorus Magnesium AST ALT Total Creatine Kinase CK-MB (CK-2) Troponin T NT-Pro-B Natriuret Pep Total Protein Albumin Triglycerides HDL Cholesterol Urine WBC (Auto) Urine Creatinine Urine Total Protein Vancomycin Trough 05/07/19 05/07/19 05/08/19 17:39 22:40 05:06 WBC RBC Hgb Hct MCV MCH MCHC RDW Lymph % (Auto) [place] % (Auto) Eos % (Auto) Lymph # [place] # Eos # Seg Neutrophils % Seg Neuts % (Manual) Lymphocytes % (Manual) Monocytes % (Manual) Eosinophils % (Manual) Nucleated RBC % Seg Neutrophils # Seg Neutrophils # Man Lymphocytes # (Manual) Monocytes # (Manual) Eosinophils # (Manual) PT INR APTT POC ABG pH ABG pH POC ABG pCO2 POC ABG pO2 ABG pO2 ABG HCO3 ABG O2 Saturation ABG Base Excess ABG Hemoglobin Oxyhemoglobin Sodium Potassium Chloride Carbon Dioxide BUN Creatinine Glucose POC Glucose 116 H 148 H Uric Acid Calcium Phosphorus Magnesium AST ALT Total Creatine Kinase CK-MB (CK-2) Troponin T NT-Pro-B Natriuret Pep Total Protein Albumin Triglycerides HDL Cholesterol Urine WBC (Auto) Urine Creatinine 292.8 H Urine Total Protein 269 H Vancomycin Trough 05/08/19 05/08/19 05/08/19 05:32 11:28 13:48 WBC RBC Hgb Hct MCV MCH MCHC RDW Lymph % (Auto) [place] % (Auto) Eos % (Auto) Lymph # [place] # Eos # Seg Neutrophils % Seg Neuts % (Manual) Lymphocytes % (Manual) Monocytes % (Manual) Eosinophils % (Manual) Nucleated RBC % Seg Neutrophils # Seg Neutrophils # Man Lymphocytes # (Manual) Monocytes # (Manual) Eosinophils # (Manual) PT INR APTT POC ABG pH ABG pH POC ABG pCO2 45.4 H POC ABG pO2 64 L ABG pO2 ABG HCO3 ABG O2 Saturation ABG Base Excess ABG Hemoglobin Oxyhemoglobin Sodium Potassium Chloride Carbon Dioxide BUN 73 H Creatinine 2.7 H Glucose 127 H POC Glucose 107 H Uric Acid Calcium 7.6 L Phosphorus Magnesium AST ALT Total Creatine Kinase CK-MB (CK-2) Troponin T NT-Pro-B Natriuret Pep Total Protein Albumin Triglycerides HDL Cholesterol Urine WBC (Auto) Urine Creatinine Urine Total Protein Vancomycin Trough 05/08/19 05/09/19 05/09/19 17:48 04:50 04:53 WBC RBC 3.07 L Hgb 8.5 L D Hct 29.3 L D MCV 96 H MCH MCHC 29 L RDW 18.1 H Lymph % (Auto) [place] % (Auto) Eos % (Auto) Lymph # [place] # Eos # Seg Neutrophils % Seg Neuts % (Manual) Lymphocytes % (Manual) Monocytes % (Manual) Eosinophils % (Manual) Nucleated RBC % Seg Neutrophils # Seg Neutrophils # Man Lymphocytes # (Manual) Monocytes # (Manual) Eosinophils # (Manual) PT INR APTT POC ABG pH 7.316 L ABG pH POC ABG pCO2 66.0 H POC ABG pO2 69 L ABG pO2 ABG HCO3 ABG O2 Saturation ABG Base Excess ABG Hemoglobin Oxyhemoglobin Sodium Potassium Chloride Carbon Dioxide BUN Creatinine Glucose POC Glucose 155 H Uric Acid Calcium Phosphorus Magnesium AST ALT Total Creatine Kinase CK-MB (CK-2) Troponin T NT-Pro-B Natriuret Pep Total Protein Albumin Triglycerides HDL Cholesterol Urine WBC (Auto) Urine Creatinine Urine Total Protein Vancomycin Trough 05/09/19 05/09/19 05/09/19 05:46 07:24 12:10 WBC RBC Hgb Hct MCV MCH MCHC RDW Lymph % (Auto) [place] % (Auto) Eos % (Auto) Lymph # [place] # Eos # Seg Neutrophils % Seg Neuts % (Manual) Lymphocytes % (Manual) Monocytes % (Manual) Eosinophils % (Manual) Nucleated RBC % Seg Neutrophils # Seg Neutrophils # Man Lymphocytes # (Manual) Monocytes # (Manual) Eosinophils # (Manual) PT INR APTT POC ABG pH ABG pH POC ABG pCO2 POC ABG pO2 ABG pO2 ABG HCO3 ABG O2 Saturation ABG Base Excess ABG Hemoglobin Oxyhemoglobin Sodium Potassium Chloride Carbon Dioxide BUN 73 H Creatinine 2.4 H Glucose 153 H POC Glucose 123 H 148 H Uric Acid Calcium 8.2 L Phosphorus Magnesium AST 45 H ALT Total Creatine Kinase CK-MB (CK-2) Troponin T NT-Pro-B Natriuret Pep Total Protein 6.0 L Albumin 1.9 L Triglycerides HDL Cholesterol Urine WBC (Auto) Urine Creatinine Urine Total Protein Vancomycin Trough 05/09/19 05/09/19 05/10/19 18:23 23:26 04:52 WBC RBC Hgb Hct MCV MCH MCHC RDW Lymph % (Auto) [place] % (Auto) Eos % (Auto) Lymph # [place] # Eos # Seg Neutrophils % Seg Neuts % (Manual) Lymphocytes % (Manual) Monocytes % (Manual) Eosinophils % (Manual) Nucleated RBC % Seg Neutrophils # Seg Neutrophils # Man Lymphocytes # (Manual) Monocytes # (Manual) Eosinophils # (Manual) PT INR APTT POC ABG pH 7.305 L ABG pH POC ABG pCO2 62.6 H POC ABG pO2 ABG pO2 ABG HCO3 ABG O2 Saturation ABG Base Excess ABG Hemoglobin Oxyhemoglobin Sodium Potassium Chloride Carbon Dioxide BUN Creatinine Glucose POC Glucose 147 H 121 H Uric Acid Calcium Phosphorus Magnesium AST ALT Total Creatine Kinase CK-MB (CK-2) Troponin T NT-Pro-B Natriuret Pep Total Protein Albumin Triglycerides HDL Cholesterol Urine WBC (Auto) Urine Creatinine Urine Total Protein Vancomycin Trough 05/10/19 05/10/19 05/10/19 05:00 05:00 05:50 WBC RBC Hgb 10.3 L Hct 33.7 L MCV MCH 27 L MCHC 31 L RDW 17.0 H Lymph % (Auto) [place] % (Auto) Eos % (Auto) Lymph # [place] # Eos # Seg Neutrophils % Seg Neuts % (Manual) Lymphocytes % (Manual) Monocytes % (Manual) Eosinophils % (Manual) Nucleated RBC % Seg Neutrophils # Seg Neutrophils # Man Lymphocytes # (Manual) Monocytes # (Manual) Eosinophils # (Manual) PT INR APTT POC ABG pH ABG pH POC ABG pCO2 POC ABG pO2 ABG pO2 ABG HCO3 ABG O2 Saturation ABG Base Excess ABG Hemoglobin Oxyhemoglobin Sodium 147 H Potassium Chloride Carbon Dioxide BUN 70 H Creatinine 2.6 H Glucose 155 H POC Glucose 158 H Uric Acid Calcium 8.2 L Phosphorus Magnesium AST ALT Total Creatine Kinase CK-MB (CK-2) Troponin T NT-Pro-B Natriuret Pep Total Protein 6.1 L Albumin 2.5 L Triglycerides HDL Cholesterol Urine WBC (Auto) Urine Creatinine Urine Total Protein Vancomycin Trough 05/10/19 05/11/19 05/11/19 13:14 07:26 11:40 WBC RBC Hgb Hct MCV MCH MCHC RDW Lymph % (Auto) [place] % (Auto) Eos % (Auto) Lymph # [place] # Eos # Seg Neutrophils % Seg Neuts % (Manual) Lymphocytes % (Manual) Monocytes % (Manual) Eosinophils % (Manual) Nucleated RBC % Seg Neutrophils # Seg Neutrophils # Man Lymphocytes # (Manual) Monocytes # (Manual) Eosinophils # (Manual) PT INR APTT POC ABG pH ABG pH POC ABG pCO2 48.0 H POC ABG pO2 58 L ABG pO2 ABG HCO3 ABG O2 Saturation ABG Base Excess ABG Hemoglobin Oxyhemoglobin Sodium 147 H Potassium Chloride 107.2 H Carbon Dioxide BUN 67 H Creatinine 2.6 H Glucose 121 H POC Glucose 159 H Uric Acid Calcium Phosphorus Magnesium AST ALT Total Creatine Kinase CK-MB (CK-2) Troponin T NT-Pro-B Natriuret Pep Total Protein Albumin Triglycerides HDL Cholesterol Urine WBC (Auto) Urine Creatinine Urine Total Protein Vancomycin Trough 05/11/19 05/11/19 05/12/19 18:13 23:46 04:40 WBC RBC Hgb Hct MCV MCH MCHC RDW Lymph % (Auto) [place] % (Auto) Eos % (Auto) Lymph # [place] # Eos # Seg Neutrophils % Seg Neuts % (Manual) Lymphocytes % (Manual) Monocytes % (Manual) Eosinophils % (Manual) Nucleated RBC % Seg Neutrophils # Seg Neutrophils # Man Lymphocytes # (Manual) Monocytes # (Manual) Eosinophils # (Manual) PT INR APTT POC ABG pH ABG pH 7.264 L POC ABG pCO2 POC ABG pO2 ABG pO2 66.8 L ABG HCO3 31.0 H ABG O2 Saturation 92.0 L ABG Base Excess ABG Hemoglobin 10.3 L Oxyhemoglobin 90.1 L Sodium Potassium Chloride Carbon Dioxide BUN Creatinine Glucose POC Glucose 120 H 121 H Uric Acid Calcium Phosphorus Magnesium AST ALT Total Creatine Kinase CK-MB (CK-2) Troponin T NT-Pro-B Natriuret Pep Total Protein Albumin Triglycerides HDL Cholesterol Urine WBC (Auto) Urine Creatinine Urine Total Protein Vancomycin Trough 05/12/19 05/12/19 05/12/19 04:45 04:45 11:14 WBC RBC Hgb 10.2 L Hct 32.4 L MCV MCH MCHC 31 L RDW 17.2 H Lymph % (Auto) [place] % (Auto) Eos % (Auto) Lymph # [place] # Eos # Seg Neutrophils % Seg Neuts % (Manual) Lymphocytes % (Manual) Monocytes % (Manual) Eosinophils % (Manual) Nucleated RBC % Seg Neutrophils # Seg Neutrophils # Man Lymphocytes # (Manual) Monocytes # (Manual) Eosinophils # (Manual) PT INR APTT POC ABG pH 7.284 L ABG pH POC ABG pCO2 67.8 H POC ABG pO2 ABG pO2 ABG HCO3 ABG O2 Saturation ABG Base Excess ABG Hemoglobin Oxyhemoglobin Sodium Potassium Chloride Carbon Dioxide BUN 63 H Creatinine 2.4 H Glucose 110 H POC Glucose Uric Acid Calcium Phosphorus Magnesium AST ALT Total Creatine Kinase CK-MB (CK-2) Troponin T NT-Pro-B Natriuret Pep Total Protein Albumin Triglycerides HDL Cholesterol Urine WBC (Auto) Urine Creatinine Urine Total Protein Vancomycin Trough 05/12/19 05/12/19 05/13/19 11:44 23:11 04:30 WBC RBC Hgb Hct MCV MCH MCHC RDW Lymph % (Auto) [place] % (Auto) Eos % (Auto) Lymph # [place] # Eos # Seg Neutrophils % Seg Neuts % (Manual) Lymphocytes % (Manual) Monocytes % (Manual) Eosinophils % (Manual) Nucleated RBC % Seg Neutrophils # Seg Neutrophils # Man Lymphocytes # (Manual) Monocytes # (Manual) Eosinophils # (Manual) PT INR APTT POC ABG pH ABG pH 7.288 L POC ABG pCO2 POC ABG pO2 ABG pO2 109.7 H ABG HCO3 30.9 H ABG O2 Saturation ABG Base Excess 3.2 H ABG Hemoglobin 9.6 L Oxyhemoglobin Sodium Potassium Chloride Carbon Dioxide BUN Creatinine Glucose POC Glucose 126 H 147 H Uric Acid Calcium Phosphorus Magnesium AST ALT Total Creatine Kinase CK-MB (CK-2) Troponin T NT-Pro-B Natriuret Pep Total Protein Albumin Triglycerides HDL Cholesterol Urine WBC (Auto) Urine Creatinine Urine Total Protein Vancomycin Trough 05/13/19 05/13/19 05/14/19 06:27 11:58 04:00 WBC RBC 3.16 L Hgb 9.3 L Hct 27.9 L MCV MCH MCHC RDW 17.1 H Lymph % (Auto) [place] % (Auto) Eos % (Auto) Lymph # [place] # Eos # Seg Neutrophils % Seg Neuts % (Manual) Lymphocytes % (Manual) Monocytes % (Manual) Eosinophils % (Manual) Nucleated RBC % Seg Neutrophils # Seg Neutrophils # Man Lymphocytes # (Manual) Monocytes # (Manual) Eosinophils # (Manual) PT INR APTT POC ABG pH ABG pH POC ABG pCO2 POC ABG pO2 ABG pO2 ABG HCO3 ABG O2 Saturation ABG Base Excess ABG Hemoglobin Oxyhemoglobin Sodium Potassium Chloride Carbon Dioxide BUN Creatinine Glucose POC Glucose 113 H 130 H Uric Acid Calcium Phosphorus Magnesium AST ALT Total Creatine Kinase CK-MB (CK-2) Troponin T NT-Pro-B Natriuret Pep Total Protein Albumin Triglycerides HDL Cholesterol Urine WBC (Auto) Urine Creatinine Urine Total Protein Vancomycin Trough 05/14/19 05/14/19 05/14/19 04:00 04:34 05:32 WBC RBC Hgb Hct MCV MCH MCHC RDW Lymph % (Auto) [place] % (Auto) Eos % (Auto) Lymph # [place] # Eos # Seg Neutrophils % Seg Neuts % (Manual) Lymphocytes % (Manual) Monocytes % (Manual) Eosinophils % (Manual) Nucleated RBC % Seg Neutrophils # Seg Neutrophils # Man Lymphocytes # (Manual) Monocytes # (Manual) Eosinophils # (Manual) PT INR APTT POC ABG pH 7.328 L ABG pH POC ABG pCO2 61.7 H POC ABG pO2 ABG pO2 ABG HCO3 ABG O2 Saturation ABG Base Excess ABG Hemoglobin Oxyhemoglobin Sodium 135 L D Potassium Chloride Carbon Dioxide BUN 57 H Creatinine 2.2 H Glucose 115 H POC Glucose 115 H Uric Acid Calcium 8.1 L Phosphorus Magnesium AST ALT Total Creatine Kinase CK-MB (CK-2) Troponin T NT-Pro-B Natriuret Pep Total Protein Albumin Triglycerides HDL Cholesterol Urine WBC (Auto) Urine Creatinine Urine Total Protein Vancomycin Trough 05/14/19 05/15/19 05/15/19 12:11 05:10 05:24 WBC RBC Hgb Hct MCV MCH MCHC RDW Lymph % (Auto) [place] % (Auto) Eos % (Auto) Lymph # [place] # Eos # Seg Neutrophils % Seg Neuts % (Manual) Lymphocytes % (Manual) Monocytes % (Manual) Eosinophils % (Manual) Nucleated RBC % Seg Neutrophils # Seg Neutrophils # Man Lymphocytes # (Manual) Monocytes # (Manual) Eosinophils # (Manual) PT INR APTT POC ABG pH ABG pH 7.342 L POC ABG pCO2 POC ABG pO2 ABG pO2 79.1 L ABG HCO3 28.2 H ABG O2 Saturation ABG Base Excess ABG Hemoglobin 7.0 L Oxyhemoglobin 94.4 L Sodium Potassium Chloride Carbon Dioxide BUN Creatinine Glucose POC Glucose 110 H 116 H Uric Acid Calcium Phosphorus Magnesium AST ALT Total Creatine Kinase CK-MB (CK-2) Troponin T NT-Pro-B Natriuret Pep Total Protein Albumin Triglycerides HDL Cholesterol Urine WBC (Auto) Urine Creatinine Urine Total Protein Vancomycin Trough 05/15/19 05/15/19 05/16/19 09:00 18:12 04:50 WBC RBC Hgb Hct MCV MCH MCHC RDW Lymph % (Auto) [place] % (Auto) Eos % (Auto) Lymph # [place] # Eos # Seg Neutrophils % Seg Neuts % (Manual) Lymphocytes % (Manual) Monocytes % (Manual) Eosinophils % (Manual) Nucleated RBC % Seg Neutrophils # Seg Neutrophils # Man Lymphocytes # (Manual) Monocytes # (Manual) Eosinophils # (Manual) PT INR APTT POC ABG pH ABG pH 7.250 L POC ABG pCO2 POC ABG pO2 ABG pO2 76.4 L ABG HCO3 ABG O2 Saturation 94.6 L ABG Base Excess -3.1 L ABG Hemoglobin 9.7 L Oxyhemoglobin 92.4 L Sodium Potassium Chloride Carbon Dioxide BUN Creatinine Glucose POC Glucose 110 H Uric Acid Calcium Phosphorus Magnesium AST ALT Total Creatine Kinase CK-MB (CK-2) Troponin T NT-Pro-B Natriuret Pep Total Protein Albumin Triglycerides HDL Cholesterol Urine WBC (Auto) Urine Creatinine Urine Total Protein Vancomycin Trough 20.5 H 12/05/16/19 05/17/19 05:50 05:50 04:20 WBC RBC 3.36 L 3.44 L Hgb 9.4 L 9.3 L Hct 29.1 L 29.7 L MCV MCH 27 L MCHC 31 L RDW 17.6 H 17.6 H Lymph % (Auto) [place] % (Auto) Eos % (Auto) Lymph # [place] # Eos # Seg Neutrophils % Seg Neuts % (Manual) 77.0 H Lymphocytes % (Manual) 5.0 L Monocytes % (Manual) Eosinophils % (Manual) 10.0 H Nucleated RBC % Seg Neutrophils # Seg Neutrophils # Man Lymphocytes # (Manual) 0.5 L Monocytes # (Manual) Eosinophils # (Manual) 0.9 H PT INR APTT POC ABG pH ABG pH POC ABG pCO2 POC ABG pO2 ABG pO2 ABG HCO3 ABG O2 Saturation ABG Base Excess ABG Hemoglobin Oxyhemoglobin Sodium Potassium Chloride Carbon Dioxide BUN 83 H Creatinine 4.4 H D Glucose 118 H POC Glucose Uric Acid Calcium Phosphorus Magnesium AST ALT Total Creatine Kinase CK-MB (CK-2) Troponin T NT-Pro-B Natriuret Pep Total Protein Albumin Triglycerides HDL Cholesterol Urine WBC (Auto) Urine Creatinine Urine Total Protein Vancomycin Trough 05/17/19 05/17/19 05/18/19 04:30 Unknown 01:50 WBC RBC 3.49 L Hgb 9.4 L Hct 30.0 L MCV MCH 27 L MCHC 31 L RDW 17.8 H Lymph % (Auto) 7.9 L [place] % (Auto) 15.4 H Eos % (Auto) 6.3 H Lymph # 0.7 L [place] # 1.4 H Eos # 0.6 H Seg Neutrophils % 70.2 H Seg Neuts % (Manual) Lymphocytes % (Manual) Monocytes % (Manual) Eosinophils % (Manual) Nucleated RBC % Seg Neutrophils # Seg Neutrophils # Man Lymphocytes # (Manual) Monocytes # (Manual) Eosinophils # (Manual) PT INR APTT POC ABG pH ABG pH 7.272 L POC ABG pCO2 POC ABG pO2 ABG pO2 75.7 L ABG HCO3 ABG O2 Saturation 93.8 L ABG Base Excess -3.0 L ABG Hemoglobin 7.8 L Oxyhemoglobin 91.6 L Sodium Potassium 5.2 H Chloride Carbon Dioxide BUN 96 H Creatinine 5.7 H Glucose 112 H POC Glucose Uric Acid Calcium Phosphorus Magnesium AST ALT Total Creatine Kinase CK-MB (CK-2) Troponin T NT-Pro-B Natriuret Pep Total Protein Albumin Triglycerides 173 H HDL Cholesterol Urine WBC (Auto) Urine Creatinine Urine Total Protein Vancomycin Trough 05/18/19 05/18/19 05/18/19 01:50 04:41 05:24 WBC RBC Hgb Hct MCV MCH MCHC RDW Lymph % (Auto) [place] % (Auto) Eos % (Auto) Lymph # [place] # Eos # Seg Neutrophils % Seg Neuts % (Manual) Lymphocytes % (Manual) Monocytes % (Manual) Eosinophils % (Manual) Nucleated RBC % Seg Neutrophils # Seg Neutrophils # Man Lymphocytes # (Manual) Monocytes # (Manual) Eosinophils # (Manual) PT INR APTT POC ABG pH 7.260 L ABG pH POC ABG pCO2 54.9 H POC ABG pO2 ABG pO2 ABG HCO3 ABG O2 Saturation ABG Base Excess ABG Hemoglobin Oxyhemoglobin Sodium Potassium 5.6 H Chloride Carbon Dioxide BUN 104 H Creatinine 6.6 H Glucose 107 H POC Glucose 106 H Uric Acid Calcium Phosphorus Magnesium AST ALT Total Creatine Kinase CK-MB (CK-2) Troponin T NT-Pro-B Natriuret Pep Total Protein Albumin Triglycerides HDL Cholesterol Urine WBC (Auto) Urine Creatinine Urine Total Protein Vancomycin Trough 05/18/19 05/18/19 05/19/19 11:34 23:26 04:06 WBC RBC 3.22 L Hgb 8.8 L Hct 27.3 L MCV MCH 27 L MCHC RDW 17.5 H Lymph % (Auto) [place] % (Auto) Eos % (Auto) Lymph # [place] # Eos # Seg Neutrophils % Seg Neuts % (Manual) 74.0 H Lymphocytes % (Manual) 4.0 L Monocytes % (Manual) 11.0 H Eosinophils % (Manual) 7.0 H Nucleated RBC % 1.0 H Seg Neutrophils # Seg Neutrophils # Man Lymphocytes # (Manual) 0.3 L Monocytes # (Manual) 0.9 H Eosinophils # (Manual) 0.6 H PT INR APTT POC ABG pH ABG pH POC ABG pCO2 POC ABG pO2 ABG pO2 ABG HCO3 ABG O2 Saturation ABG Base Excess ABG Hemoglobin Oxyhemoglobin Sodium Potassium Chloride Carbon Dioxide BUN Creatinine Glucose POC Glucose 152 H 112 H Uric Acid Calcium Phosphorus Magnesium AST ALT Total Creatine Kinase CK-MB (CK-2) Troponin T NT-Pro-B Natriuret Pep Total Protein Albumin Triglycerides HDL Cholesterol Urine WBC (Auto) Urine Creatinine Urine Total Protein Vancomycin Trough 05/19/19 05/19/19 05/20/19 04:06 06:00 04:00 WBC RBC 3.40 L Hgb 9.2 L Hct 28.6 L MCV MCH 27 L MCHC RDW 17.6 H Lymph % (Auto) [place] % (Auto) Eos % (Auto) Lymph # [place] # Eos # Seg Neutrophils % Seg Neuts % (Manual) Lymphocytes % (Manual) 11.0 L Monocytes % (Manual) Eosinophils % (Manual) 14.0 H Nucleated RBC % Seg Neutrophils # Seg Neutrophils # Man Lymphocytes # (Manual) 1.1 L Monocytes # (Manual) Eosinophils # (Manual) 1.4 H PT INR APTT POC ABG pH ABG pH 7.315 L POC ABG pCO2 POC ABG pO2 ABG pO2 ABG HCO3 ABG O2 Saturation ABG Base Excess ABG Hemoglobin 6.7 L Oxyhemoglobin 94.1 L Sodium Potassium 5.2 H Chloride Carbon Dioxide 21 L BUN 110 H Creatinine 7.2 H Glucose POC Glucose Uric Acid Calcium 8.3 L Phosphorus Magnesium AST ALT Total Creatine Kinase CK-MB (CK-2) Troponin T NT-Pro-B Natriuret Pep Total Protein Albumin Triglycerides HDL Cholesterol Urine WBC (Auto) Urine Creatinine Urine Total Protein Vancomycin Trough 05/20/19 05/20/19 05/20/19 04:00 05:48 12:00 WBC RBC Hgb Hct MCV MCH MCHC RDW Lymph % (Auto) [place] % (Auto) Eos % (Auto) Lymph # [place] # Eos # Seg Neutrophils % Seg Neuts % (Manual) Lymphocytes % (Manual) Monocytes % (Manual) Eosinophils % (Manual) Nucleated RBC % Seg Neutrophils # Seg Neutrophils # Man Lymphocytes # (Manual) Monocytes # (Manual) Eosinophils # (Manual) PT INR APTT POC ABG pH ABG pH 7.281 L POC ABG pCO2 POC ABG pO2 ABG pO2 78.7 L ABG HCO3 ABG O2 Saturation 94.5 L ABG Base Excess -3.0 L ABG Hemoglobin 9.9 L Oxyhemoglobin 92.5 L Sodium 136 L Potassium 5.7 H Chloride 96.3 L Carbon Dioxide BUN 125 H Creatinine 8.3 H Glucose 106 H POC Glucose Uric Acid Calcium Phosphorus Magnesium AST ALT Total Creatine Kinase CK-MB (CK-2) Troponin T NT-Pro-B Natriuret Pep Total Protein Albumin Triglycerides HDL Cholesterol Urine WBC (Auto) 26.0 H Urine Creatinine Urine Total Protein Vancomycin Trough 05/21/19 05/21/19 05/21/19 04:33 05:20 Unknown WBC RBC 3.38 L Hgb 9.1 L Hct 28.5 L MCV MCH 27 L MCHC RDW 17.4 H Lymph % (Auto) [place] % (Auto) Eos % (Auto) Lymph # [place] # Eos # Seg Neutrophils % Seg Neuts % (Manual) 71.0 H Lymphocytes % (Manual) 1.0 L Monocytes % (Manual) 11.0 H Eosinophils % (Manual) 6.0 H Nucleated RBC % Seg Neutrophils # Seg Neutrophils # Man Lymphocytes # (Manual) 0.1 L Monocytes # (Manual) 1.0 H Eosinophils # (Manual) 0.6 H PT INR APTT POC ABG pH 7.315 L ABG pH POC ABG pCO2 57.8 H POC ABG pO2 68 L ABG pO2 ABG HCO3 ABG O2 Saturation ABG Base Excess ABG Hemoglobin Oxyhemoglobin Sodium Potassium Chloride 96.3 L Carbon Dioxide BUN 102 H Creatinine 7.0 H Glucose 103 H POC Glucose Uric Acid Calcium Phosphorus Magnesium AST ALT Total Creatine Kinase CK-MB (CK-2) Troponin T NT-Pro-B Natriuret Pep Total Protein Albumin Triglycerides HDL Cholesterol Urine WBC (Auto) Urine Creatinine Urine Total Protein Vancomycin Trough 05/22/19 05/22/19 05/22/19 03:54 06:25 06:25 WBC RBC 3.22 L Hgb 8.6 L Hct 27.0 L MCV MCH 27 L MCHC RDW 17.5 H Lymph % (Auto) [place] % (Auto) 16.2 H Eos % (Auto) 10.8 H Lymph # [place] # 1.3 H Eos # 0.9 H Seg Neutrophils % Seg Neuts % (Manual) Lymphocytes % (Manual) 10.0 L Monocytes % (Manual) 13.0 H Eosinophils % (Manual) 8.0 H Nucleated RBC % Seg Neutrophils # Seg Neutrophils # Man Lymphocytes # (Manual) 0.9 L Monocytes # (Manual) 1.1 H Eosinophils # (Manual) 0.7 H PT INR APTT POC ABG pH 7.313 L ABG pH POC ABG pCO2 55.0 H POC ABG pO2 ABG pO2 ABG HCO3 ABG O2 Saturation ABG Base Excess ABG Hemoglobin Oxyhemoglobin Sodium 135 L Potassium Chloride 94.3 L Carbon Dioxide BUN 117 H Creatinine 7.8 H Glucose POC Glucose Uric Acid Calcium 8.2 L Phosphorus Magnesium AST ALT Total Creatine Kinase CK-MB (CK-2) Troponin T NT-Pro-B Natriuret Pep Total Protein Albumin Triglycerides HDL Cholesterol Urine WBC (Auto) Urine Creatinine Urine Total Protein Vancomycin Trough 05/23/19 05/24/19 05/24/19 05:21 05:00 05:00 WBC RBC 3.18 L Hgb 8.5 L Hct 26.7 L MCV MCH 27 L MCHC RDW 17.9 H Lymph % (Auto) [place] % (Auto) Eos % (Auto) Lymph # [place] # Eos # Seg Neutrophils % Seg Neuts % (Manual) Lymphocytes % (Manual) Monocytes % (Manual) Eosinophils % (Manual) Nucleated RBC % Seg Neutrophils # Seg Neutrophils # Man Lymphocytes # (Manual) Monocytes # (Manual) Eosinophils # (Manual) PT INR APTT POC ABG pH ABG pH POC ABG pCO2 49.7 H POC ABG pO2 73 L ABG pO2 ABG HCO3 ABG O2 Saturation ABG Base Excess ABG Hemoglobin Oxyhemoglobin Sodium Potassium Chloride 95.7 L Carbon Dioxide BUN 97 H Creatinine 6.5 H Glucose POC Glucose Uric Acid Calcium 8.0 L Phosphorus Magnesium AST ALT Total Creatine Kinase CK-MB (CK-2) Troponin T NT-Pro-B Natriuret Pep Total Protein Albumin Triglycerides HDL Cholesterol Urine WBC (Auto) Urine Creatinine Urine Total Protein Vancomycin Trough 05/24/19 05/25/19 05/25/19 06:17 04:22 15:45 WBC RBC 2.98 L Hgb 8.1 L Hct 24.9 L MCV MCH 27 L MCHC RDW 17.8 H Lymph % (Auto) [place] % (Auto) Eos % (Auto) Lymph # [place] # Eos # Seg Neutrophils % Seg Neuts % (Manual) Lymphocytes % (Manual) Monocytes % (Manual) Eosinophils % (Manual) Nucleated RBC % Seg Neutrophils # Seg Neutrophils # Man Lymphocytes # (Manual) Monocytes # (Manual) Eosinophils # (Manual) PT INR APTT POC ABG pH 7.330 L 7.313 L ABG pH POC ABG pCO2 52.5 H 51.1 H POC ABG pO2 77 L ABG pO2 ABG HCO3 ABG O2 Saturation ABG Base Excess ABG Hemoglobin Oxyhemoglobin Sodium Potassium Chloride Carbon Dioxide BUN Creatinine Glucose POC Glucose Uric Acid Calcium Phosphorus Magnesium AST ALT Total Creatine Kinase CK-MB (CK-2) Troponin T NT-Pro-B Natriuret Pep Total Protein Albumin Triglycerides HDL Cholesterol Urine WBC (Auto) Urine Creatinine Urine Total Protein Vancomycin Trough 05/25/19 05/26/19 05/26/19 15:45 04:13 05:00 WBC RBC 3.10 L Hgb 8.4 L Hct 26.0 L MCV MCH 27 L MCHC RDW 17.4 H Lymph % (Auto) [place] % (Auto) Eos % (Auto) Lymph # [place] # Eos # Seg Neutrophils % Seg Neuts % (Manual) Lymphocytes % (Manual) Monocytes % (Manual) Eosinophils % (Manual) Nucleated RBC % Seg Neutrophils # Seg Neutrophils # Man Lymphocytes # (Manual) Monocytes # (Manual) Eosinophils # (Manual) PT INR APTT POC ABG pH 7.295 L ABG pH POC ABG pCO2 56.5 H POC ABG pO2 63 L ABG pO2 ABG HCO3 ABG O2 Saturation ABG Base Excess ABG Hemoglobin Oxyhemoglobin Sodium 136 L Potassium Chloride 96.8 L Carbon Dioxide BUN 83 H Creatinine 5.9 H Glucose POC Glucose Uric Acid Calcium 7.6 L Phosphorus Magnesium AST ALT Total Creatine Kinase CK-MB (CK-2) Troponin T NT-Pro-B Natriuret Pep Total Protein Albumin Triglycerides HDL Cholesterol Urine WBC (Auto) Urine Creatinine Urine Total Protein Vancomycin Trough 05/26/19 05/27/19 05/28/19 05:00 04:48 04:47 WBC RBC Hgb Hct MCV MCH MCHC RDW Lymph % (Auto) [place] % (Auto) Eos % (Auto) Lymph # [place] # Eos # Seg Neutrophils % Seg Neuts % (Manual) Lymphocytes % (Manual) Monocytes % (Manual) Eosinophils % (Manual) Nucleated RBC % Seg Neutrophils # Seg Neutrophils # Man Lymphocytes # (Manual) Monocytes # (Manual) Eosinophils # (Manual) PT INR APTT POC ABG pH 7.323 L ABG pH 7.284 L POC ABG pCO2 56.2 H POC ABG pO2 ABG pO2 71.6 L ABG HCO3 ABG O2 Saturation 92.0 L ABG Base Excess ABG Hemoglobin 7.7 L Oxyhemoglobin 89.9 L Sodium 136 L Potassium Chloride 95.3 L Carbon Dioxide BUN 96 H Creatinine 6.5 H Glucose 108 H POC Glucose Uric Acid Calcium 7.6 L Phosphorus Magnesium AST ALT Total Creatine Kinase CK-MB (CK-2) Troponin T NT-Pro-B Natriuret Pep Total Protein Albumin Triglycerides HDL Cholesterol Urine WBC (Auto) Urine Creatinine Urine Total Protein Vancomycin Trough 05/28/19 05/29/19 05/29/19 12:30 12:47 23:44 WBC RBC Hgb Hct MCV MCH MCHC RDW Lymph % (Auto) [place] % (Auto) Eos % (Auto) Lymph # [place] # Eos # Seg Neutrophils % Seg Neuts % (Manual) Lymphocytes % (Manual) Monocytes % (Manual) Eosinophils % (Manual) Nucleated RBC % Seg Neutrophils # Seg Neutrophils # Man Lymphocytes # (Manual) Monocytes # (Manual) Eosinophils # (Manual) PT INR APTT POC ABG pH ABG pH POC ABG pCO2 POC ABG pO2 ABG pO2 ABG HCO3 ABG O2 Saturation ABG Base Excess ABG Hemoglobin Oxyhemoglobin Sodium 135 L Potassium Chloride 95.3 L Carbon Dioxide BUN 82 H Creatinine 6.0 H Glucose POC Glucose 136 H 159 H Uric Acid Calcium 7.5 L Phosphorus Magnesium AST ALT Total Creatine Kinase CK-MB (CK-2) Troponin T NT-Pro-B Natriuret Pep Total Protein Albumin Triglycerides HDL Cholesterol Urine WBC (Auto) Urine Creatinine Urine Total Protein Vancomycin Trough 05/30/19 05/30/19 05/30/19 04:30 05:38 12:00 WBC RBC 3.01 L Hgb 8.2 L Hct 25.3 L MCV MCH 27 L MCHC RDW 17.5 H Lymph % (Auto) [place] % (Auto) Eos % (Auto) Lymph # [place] # Eos # Seg Neutrophils % Seg Neuts % (Manual) 80.0 H Lymphocytes % (Manual) 10.0 L Monocytes % (Manual) Eosinophils % (Manual) Nucleated RBC % Seg Neutrophils # Seg Neutrophils # Man 8.0 H Lymphocytes # (Manual) 1.0 L Monocytes # (Manual) Eosinophils # (Manual) PT INR APTT POC ABG pH ABG pH POC ABG pCO2 POC ABG pO2 73 L ABG pO2 ABG HCO3 ABG O2 Saturation ABG Base Excess ABG Hemoglobin Oxyhemoglobin Sodium Potassium Chloride Carbon Dioxide BUN Creatinine Glucose POC Glucose 166 H Uric Acid Calcium Phosphorus Magnesium AST ALT Total Creatine Kinase CK-MB (CK-2) Troponin T NT-Pro-B Natriuret Pep Total Protein Albumin Triglycerides HDL Cholesterol Urine WBC (Auto) Urine Creatinine Urine Total Protein Vancomycin Trough 05/30/19 05/31/19 05/31/19 23:45 04:07 13:04 WBC 14.3 H RBC 2.88 L Hgb 7.7 L Hct 23.9 L MCV 83 L MCH 27 L MCHC RDW 17.8 H Lymph % (Auto) [place] % (Auto) Eos % (Auto) Lymph # [place] # Eos # Seg Neutrophils % Seg Neuts % (Manual) 83.0 H Lymphocytes % (Manual) 11.0 L Monocytes % (Manual) Eosinophils % (Manual) Nucleated RBC % Seg Neutrophils # Seg Neutrophils # Man 11.9 H Lymphocytes # (Manual) Monocytes # (Manual) 0.9 H Eosinophils # (Manual) PT INR APTT POC ABG pH ABG pH POC ABG pCO2 47.4 H POC ABG pO2 ABG pO2 ABG HCO3 ABG O2 Saturation ABG Base Excess ABG Hemoglobin Oxyhemoglobin Sodium Potassium Chloride Carbon Dioxide BUN Creatinine Glucose POC Glucose 209 H Uric Acid Calcium Phosphorus Magnesium AST ALT Total Creatine Kinase CK-MB (CK-2) Troponin T NT-Pro-B Natriuret Pep Total Protein Albumin Triglycerides HDL Cholesterol Urine WBC (Auto) Urine Creatinine Urine Total Protein Vancomycin Trough 05/31/19 05/31/19 06/01/19 13:04 16:42 00:15 WBC RBC Hgb Hct MCV MCH MCHC RDW Lymph % (Auto) [place] % (Auto) Eos % (Auto) Lymph # [place] # Eos # Seg Neutrophils % Seg Neuts % (Manual) Lymphocytes % (Manual) Monocytes % (Manual) Eosinophils % (Manual) Nucleated RBC % Seg Neutrophils # Seg Neutrophils # Man Lymphocytes # (Manual) Monocytes # (Manual) Eosinophils # (Manual) PT INR APTT POC ABG pH ABG pH POC ABG pCO2 POC ABG pO2 ABG pO2 ABG HCO3 ABG O2 Saturation ABG Base Excess ABG Hemoglobin Oxyhemoglobin Sodium 129 L Potassium Chloride 88.6 L Carbon Dioxide 19 L BUN 117 H Creatinine 6.7 H Glucose 205 H POC Glucose 228 H 223 H Uric Acid Calcium 7.4 L Phosphorus 7.40 H Magnesium AST 58 H ALT 149 H Total Creatine Kinase CK-MB (CK-2) Troponin T NT-Pro-B Natriuret Pep Total Protein 6.0 L Albumin 2.5 L Triglycerides HDL Cholesterol Urine WBC (Auto) Urine Creatinine Urine Total Protein Vancomycin Trough 06/01/19 06/01/19 06/01/19 04:33 05:27 12:31 WBC RBC Hgb Hct MCV MCH MCHC RDW Lymph % (Auto) [place] % (Auto) Eos % (Auto) Lymph # [place] # Eos # Seg Neutrophils % Seg Neuts % (Manual) Lymphocytes % (Manual) Monocytes % (Manual) Eosinophils % (Manual) Nucleated RBC % Seg Neutrophils # Seg Neutrophils # Man Lymphocytes # (Manual) Monocytes # (Manual) Eosinophils # (Manual) PT INR APTT POC ABG pH ABG pH POC ABG pCO2 POC ABG pO2 ABG pO2 56.9 L ABG HCO3 ABG O2 Saturation 85.9 L ABG Base Excess ABG Hemoglobin 8.1 L Oxyhemoglobin 83.6 L Sodium Potassium Chloride Carbon Dioxide BUN Creatinine Glucose POC Glucose 183 H 217 H Uric Acid Calcium Phosphorus Magnesium AST ALT Total Creatine Kinase CK-MB (CK-2) Troponin T NT-Pro-B Natriuret Pep Total Protein Albumin Triglycerides HDL Cholesterol Urine WBC (Auto) Urine Creatinine Urine Total Protein Vancomycin Trough 06/01/19 06/02/19 06/02/19 18:20 00:00 05:33 WBC RBC Hgb Hct MCV MCH MCHC RDW Lymph % (Auto) [place] % (Auto) Eos % (Auto) Lymph # [place] # Eos # Seg Neutrophils % Seg Neuts % (Manual) Lymphocytes % (Manual) Monocytes % (Manual) Eosinophils % (Manual) Nucleated RBC % Seg Neutrophils # Seg Neutrophils # Man Lymphocytes # (Manual) Monocytes # (Manual) Eosinophils # (Manual) PT INR APTT POC ABG pH ABG pH POC ABG pCO2 POC ABG pO2 ABG pO2 ABG HCO3 ABG O2 Saturation ABG Base Excess ABG Hemoglobin Oxyhemoglobin Sodium Potassium Chloride Carbon Dioxide BUN Creatinine Glucose POC Glucose 265 H 279 H 259 H Uric Acid Calcium Phosphorus Magnesium AST ALT Total Creatine Kinase CK-MB (CK-2) Troponin T NT-Pro-B Natriuret Pep Total Protein Albumin Triglycerides HDL Cholesterol Urine WBC (Auto) Urine Creatinine Urine Total Protein Vancomycin Trough 06/02/19 06/02/19 06/02/19 11:06 11:06 11:42 WBC 13.1 H RBC 2.92 L Hgb 7.9 L Hct 24.4 L MCV MCH 27 L MCHC RDW 17.4 H Lymph % (Auto) [place] % (Auto) Eos % (Auto) Lymph # [place] # Eos # Seg Neutrophils % Seg Neuts % (Manual) 78.0 H Lymphocytes % (Manual) 12.0 L Monocytes % (Manual) 10.0 H Eosinophils % (Manual) Nucleated RBC % Seg Neutrophils # Seg Neutrophils # Man 10.2 H Lymphocytes # (Manual) Monocytes # (Manual) 1.3 H Eosinophils # (Manual) PT INR APTT POC ABG pH ABG pH POC ABG pCO2 POC ABG pO2 ABG pO2 ABG HCO3 ABG O2 Saturation ABG Base Excess ABG Hemoglobin Oxyhemoglobin Sodium 135 L Potassium Chloride 94.7 L Carbon Dioxide 21 L BUN 107 H Creatinine 4.5 H Glucose 286 H POC Glucose 263 H Uric Acid Calcium 7.9 L Phosphorus 6.30 H Magnesium AST ALT 104 H Total Creatine Kinase CK-MB (CK-2) Troponin T NT-Pro-B Natriuret Pep Total Protein 6.0 L Albumin 2.7 L Triglycerides HDL Cholesterol Urine WBC (Auto) Urine Creatinine Urine Total Protein Vancomycin Trough 06/02/19 06/02/19 06/03/19 18:17 23:55 05:30 WBC RBC Hgb Hct MCV MCH MCHC RDW Lymph % (Auto) [place] % (Auto) Eos % (Auto) Lymph # [place] # Eos # Seg Neutrophils % Seg Neuts % (Manual) Lymphocytes % (Manual) Monocytes % (Manual) Eosinophils % (Manual) Nucleated RBC % Seg Neutrophils # Seg Neutrophils # Man Lymphocytes # (Manual) Monocytes # (Manual) Eosinophils # (Manual) PT INR APTT POC ABG pH ABG pH POC ABG pCO2 POC ABG pO2 ABG pO2 ABG HCO3 ABG O2 Saturation ABG Base Excess ABG Hemoglobin Oxyhemoglobin Sodium Potassium Chloride 95.1 L Carbon Dioxide 21 L BUN 119 H Creatinine 4.1 H Glucose 330 H POC Glucose 276 H 244 H Uric Acid Calcium 8.1 L Phosphorus Magnesium AST ALT 98 H Total Creatine Kinase CK-MB (CK-2) Troponin T NT-Pro-B Natriuret Pep Total Protein 5.8 L Albumin 2.8 L Triglycerides HDL Cholesterol Urine WBC (Auto) Urine Creatinine Urine Total Protein Vancomycin Trough 06/03/19 06/03/19 06/03/19 05:30 06:04 09:42 WBC 12.8 H RBC 3.01 L Hgb 8.2 L Hct 25.4 L MCV MCH 27 L MCHC RDW 17.5 H Lymph % (Auto) [place] % (Auto) Eos % (Auto) Lymph # [place] # Eos # Seg Neutrophils % Seg Neuts % (Manual) 78.0 H Lymphocytes % (Manual) 10.0 L Monocytes % (Manual) 12.0 H Eosinophils % (Manual) Nucleated RBC % Seg Neutrophils # Seg Neutrophils # Man 10.0 H Lymphocytes # (Manual) Monocytes # (Manual) 1.5 H Eosinophils # (Manual) PT INR APTT POC ABG pH ABG pH POC ABG pCO2 POC ABG pO2 ABG pO2 ABG HCO3 ABG O2 Saturation ABG Base Excess ABG Hemoglobin Oxyhemoglobin Sodium Potassium Chloride Carbon Dioxide BUN 106 H Creatinine Glucose POC Glucose 254 H Uric Acid Calcium Phosphorus Magnesium AST ALT Total Creatine Kinase CK-MB (CK-2) Troponin T NT-Pro-B Natriuret Pep Total Protein Albumin Triglycerides HDL Cholesterol Urine WBC (Auto) Urine Creatinine Urine Total Protein Vancomycin Trough 06/03/19 06/03/19 06/03/19 12:52 17:25 23:37 WBC RBC Hgb Hct MCV MCH MCHC RDW Lymph % (Auto) [place] % (Auto) Eos % (Auto) Lymph # [place] # Eos # Seg Neutrophils % Seg Neuts % (Manual) Lymphocytes % (Manual) Monocytes % (Manual) Eosinophils % (Manual) Nucleated RBC % Seg Neutrophils # Seg Neutrophils # Man Lymphocytes # (Manual) Monocytes # (Manual) Eosinophils # (Manual) PT INR APTT POC ABG pH ABG pH POC ABG pCO2 POC ABG pO2 ABG pO2 ABG HCO3 ABG O2 Saturation ABG Base Excess ABG Hemoglobin Oxyhemoglobin Sodium Potassium Chloride Carbon Dioxide BUN Creatinine Glucose POC Glucose 274 H 285 H 310 H Uric Acid Calcium Phosphorus Magnesium AST ALT Total Creatine Kinase CK-MB (CK-2) Troponin T NT-Pro-B Natriuret Pep Total Protein Albumin Triglycerides HDL Cholesterol Urine WBC (Auto) Urine Creatinine Urine Total Protein Vancomycin Trough 06/04/19 06/04/19 06/04/19 04:57 05:03 11:50 WBC RBC Hgb Hct MCV MCH MCHC RDW Lymph % (Auto) [place] % (Auto) Eos % (Auto) Lymph # [place] # Eos # Seg Neutrophils % Seg Neuts % (Manual) Lymphocytes % (Manual) Monocytes % (Manual) Eosinophils % (Manual) Nucleated RBC % Seg Neutrophils # Seg Neutrophils # Man Lymphocytes # (Manual) Monocytes # (Manual) Eosinophils # (Manual) PT INR APTT POC ABG pH 7.488 H ABG pH POC ABG pCO2 POC ABG pO2 ABG pO2 ABG HCO3 ABG O2 Saturation ABG Base Excess ABG Hemoglobin Oxyhemoglobin Sodium Potassium Chloride Carbon Dioxide BUN Creatinine Glucose POC Glucose 275 H 279 H Uric Acid Calcium Phosphorus Magnesium AST ALT Total Creatine Kinase CK-MB (CK-2) Troponin T NT-Pro-B Natriuret Pep Total Protein Albumin Triglycerides HDL Cholesterol Urine WBC (Auto) Urine Creatinine Urine Total Protein Vancomycin Trough 06/04/19 06/04/19 06/04/19 18:32 22:03 23:55 WBC RBC Hgb Hct MCV MCH MCHC RDW Lymph % (Auto) [place] % (Auto) Eos % (Auto) Lymph # [place] # Eos # Seg Neutrophils % Seg Neuts % (Manual) Lymphocytes % (Manual) Monocytes % (Manual) Eosinophils % (Manual) Nucleated RBC % Seg Neutrophils # Seg Neutrophils # Man Lymphocytes # (Manual) Monocytes # (Manual) Eosinophils # (Manual) PT INR APTT POC ABG pH ABG pH POC ABG pCO2 POC ABG pO2 ABG pO2 ABG HCO3 ABG O2 Saturation ABG Base Excess ABG Hemoglobin Oxyhemoglobin Sodium Potassium Chloride Carbon Dioxide BUN Creatinine Glucose POC Glucose 267 H 307 H 292 H Uric Acid Calcium Phosphorus Magnesium AST ALT Total Creatine Kinase CK-MB (CK-2) Troponin T NT-Pro-B Natriuret Pep Total Protein Albumin Triglycerides HDL Cholesterol Urine WBC (Auto) Urine Creatinine Urine Total Protein Vancomycin Trough 06/05/19 06/05/19 06/05/19 03:52 06:41 12:29 WBC RBC Hgb Hct MCV MCH MCHC RDW Lymph % (Auto) [place] % (Auto) Eos % (Auto) Lymph # [place] # Eos # Seg Neutrophils % Seg Neuts % (Manual) Lymphocytes % (Manual) Monocytes % (Manual) Eosinophils % (Manual) Nucleated RBC % Seg Neutrophils # Seg Neutrophils # Man Lymphocytes # (Manual) Monocytes # (Manual) Eosinophils # (Manual) PT INR APTT POC ABG pH 7.462 H ABG pH POC ABG pCO2 POC ABG pO2 ABG pO2 ABG HCO3 ABG O2 Saturation ABG Base Excess ABG Hemoglobin Oxyhemoglobin Sodium Potassium Chloride Carbon Dioxide BUN Creatinine Glucose POC Glucose 369 H 265 H Uric Acid Calcium Phosphorus Magnesium AST ALT Total Creatine Kinase CK-MB (CK-2) Troponin T NT-Pro-B Natriuret Pep Total Protein Albumin Triglycerides HDL Cholesterol Urine WBC (Auto) Urine Creatinine Urine Total Protein Vancomycin Trough 06/05/19 06/05/19 06/05/19 18:20 21:42 23:21 WBC RBC Hgb Hct MCV MCH MCHC RDW Lymph % (Auto) [place] % (Auto) Eos % (Auto) Lymph # [place] # Eos # Seg Neutrophils % Seg Neuts % (Manual) Lymphocytes % (Manual) Monocytes % (Manual) Eosinophils % (Manual) Nucleated RBC % Seg Neutrophils # Seg Neutrophils # Man Lymphocytes # (Manual) Monocytes # (Manual) Eosinophils # (Manual) PT INR APTT POC ABG pH ABG pH POC ABG pCO2 POC ABG pO2 ABG pO2 ABG HCO3 ABG O2 Saturation ABG Base Excess ABG Hemoglobin Oxyhemoglobin Sodium Potassium Chloride Carbon Dioxide BUN Creatinine Glucose POC Glucose 249 H 246 H 274 H Uric Acid Calcium Phosphorus Magnesium AST ALT Total Creatine Kinase CK-MB (CK-2) Troponin T NT-Pro-B Natriuret Pep Total Protein Albumin Triglycerides HDL Cholesterol Urine WBC (Auto) Urine Creatinine Urine Total Protein Vancomycin Trough 06/06/19 06/06/19 06/06/19 04:00 05:49 11:34 WBC 18.1 H RBC 3.53 L Hgb 9.5 L Hct 30.3 L MCV MCH 27 L MCHC 31 L RDW 19.5 H Lymph % (Auto) [place] % (Auto) Eos % (Auto) Lymph # [place] # Eos # Seg Neutrophils % Seg Neuts % (Manual) 87.0 H Lymphocytes % (Manual) 3.0 L Monocytes % (Manual) 8.0 H Eosinophils % (Manual) Nucleated RBC % Seg Neutrophils # Seg Neutrophils # Man 15.7 H Lymphocytes # (Manual) 0.5 L Monocytes # (Manual) 1.4 H Eosinophils # (Manual) PT INR APTT POC ABG pH ABG pH 7.472 H POC ABG pCO2 POC ABG pO2 ABG pO2 76.4 L ABG HCO3 28.1 H ABG O2 Saturation ABG Base Excess 4.3 H ABG Hemoglobin 12.5 L Oxyhemoglobin 93.8 L Sodium Potassium Chloride Carbon Dioxide BUN Creatinine Glucose POC Glucose 340 H Uric Acid Calcium Phosphorus Magnesium AST ALT Total Creatine Kinase CK-MB (CK-2) Troponin T NT-Pro-B Natriuret Pep Total Protein Albumin Triglycerides HDL Cholesterol Urine WBC (Auto) Urine Creatinine Urine Total Protein Vancomycin Trough 06/06/19 06/06/19 06/06/19 11:34 12:11 18:10 WBC RBC Hgb Hct MCV MCH MCHC RDW Lymph % (Auto) [place] % (Auto) Eos % (Auto) Lymph # [place] # Eos # Seg Neutrophils % Seg Neuts % (Manual) Lymphocytes % (Manual) Monocytes % (Manual) Eosinophils % (Manual) Nucleated RBC % Seg Neutrophils # Seg Neutrophils # Man Lymphocytes # (Manual) Monocytes # (Manual) Eosinophils # (Manual) PT INR APTT POC ABG pH ABG pH POC ABG pCO2 POC ABG pO2 ABG pO2 ABG HCO3 ABG O2 Saturation ABG Base Excess ABG Hemoglobin Oxyhemoglobin Sodium Potassium Chloride Carbon Dioxide BUN 70 H Creatinine Glucose 310 H POC Glucose 283 H 301 H Uric Acid Calcium 8.3 L Phosphorus 4.60 H Magnesium AST ALT 75 H Total Creatine Kinase CK-MB (CK-2) Troponin T NT-Pro-B Natriuret Pep Total Protein 5.6 L Albumin 2.9 L Triglycerides HDL Cholesterol Urine WBC (Auto) Urine Creatinine Urine Total Protein Vancomycin Trough 06/06/19 06/06/19 06/07/19 22:21 23:16 04:30 WBC RBC Hgb Hct MCV MCH MCHC RDW Lymph % (Auto) [place] % (Auto) Eos % (Auto) Lymph # [place] # Eos # Seg Neutrophils % Seg Neuts % (Manual) Lymphocytes % (Manual) Monocytes % (Manual) Eosinophils % (Manual) Nucleated RBC % Seg Neutrophils # Seg Neutrophils # Man Lymphocytes # (Manual) Monocytes # (Manual) Eosinophils # (Manual) PT INR APTT POC ABG pH ABG pH 7.480 H POC ABG pCO2 POC ABG pO2 ABG pO2 77.0 L ABG HCO3 27.2 H ABG O2 Saturation ABG Base Excess 3.5 H ABG Hemoglobin 7.1 L Oxyhemoglobin 94.2 L Sodium Potassium Chloride Carbon Dioxide BUN Creatinine Glucose POC Glucose 289 H 343 H Uric Acid Calcium Phosphorus Magnesium AST ALT Total Creatine Kinase CK-MB (CK-2) Troponin T NT-Pro-B Natriuret Pep Total Protein Albumin Triglycerides HDL Cholesterol Urine WBC (Auto) Urine Creatinine Urine Total Protein Vancomycin Trough 06/07/19 06/07/19 06/07/19 05:15 12:52 18:41 WBC RBC Hgb Hct MCV MCH MCHC RDW Lymph % (Auto) [place] % (Auto) Eos % (Auto) Lymph # [place] # Eos # Seg Neutrophils % Seg Neuts % (Manual) Lymphocytes % (Manual) Monocytes % (Manual) Eosinophils % (Manual) Nucleated RBC % Seg Neutrophils # Seg Neutrophils # Man Lymphocytes # (Manual) Monocytes # (Manual) Eosinophils # (Manual) PT INR APTT POC ABG pH ABG pH POC ABG pCO2 POC ABG pO2 ABG pO2 ABG HCO3 ABG O2 Saturation ABG Base Excess ABG Hemoglobin Oxyhemoglobin Sodium Potassium Chloride Carbon Dioxide BUN Creatinine Glucose POC Glucose 307 H 226 H 187 H Uric Acid Calcium Phosphorus Magnesium AST ALT Total Creatine Kinase CK-MB (CK-2) Troponin T NT-Pro-B Natriuret Pep Total Protein Albumin Triglycerides HDL Cholesterol Urine WBC (Auto) Urine Creatinine Urine Total Protein Vancomycin Trough 06/07/19 06/07/19 06/08/19 22:54 23:46 04:20 WBC 16.0 H RBC Hgb 10.0 L Hct 32.1 L MCV MCH 27 L MCHC 31 L RDW 19.4 H Lymph % (Auto) [place] % (Auto) Eos % (Auto) Lymph # [place] # Eos # Seg Neutrophils % Seg Neuts % (Manual) 87.0 H Lymphocytes % (Manual) 7.0 L Monocytes % (Manual) Eosinophils % (Manual) Nucleated RBC % Seg Neutrophils # Seg Neutrophils # Man 13.9 H Lymphocytes # (Manual) 1.1 L Monocytes # (Manual) 1.0 H Eosinophils # (Manual) PT INR APTT POC ABG pH ABG pH POC ABG pCO2 POC ABG pO2 ABG pO2 ABG HCO3 ABG O2 Saturation ABG Base Excess ABG Hemoglobin Oxyhemoglobin Sodium Potassium Chloride Carbon Dioxide BUN Creatinine Glucose POC Glucose 199 H 172 H Uric Acid Calcium Phosphorus Magnesium AST ALT Total Creatine Kinase CK-MB (CK-2) Troponin T NT-Pro-B Natriuret Pep Total Protein Albumin Triglycerides HDL Cholesterol Urine WBC (Auto) Urine Creatinine Urine Total Protein Vancomycin Trough 06/08/19 06/08/19 06/08/19 04:20 05:15 11:31 WBC RBC Hgb Hct MCV MCH MCHC RDW Lymph % (Auto) [place] % (Auto) Eos % (Auto) Lymph # [place] # Eos # Seg Neutrophils % Seg Neuts % (Manual) Lymphocytes % (Manual) Monocytes % (Manual) Eosinophils % (Manual) Nucleated RBC % Seg Neutrophils # Seg Neutrophils # Man Lymphocytes # (Manual) Monocytes # (Manual) Eosinophils # (Manual) PT INR APTT POC ABG pH ABG pH POC ABG pCO2 POC ABG pO2 ABG pO2 ABG HCO3 ABG O2 Saturation ABG Base Excess ABG Hemoglobin Oxyhemoglobin Sodium 146 H D Potassium Chloride Carbon Dioxide BUN 77 H Creatinine Glucose 205 H POC Glucose 209 H 181 H Uric Acid Calcium Phosphorus Magnesium AST ALT 66 H Total Creatine Kinase CK-MB (CK-2) Troponin T NT-Pro-B Natriuret Pep Total Protein 5.5 L Albumin 2.9 L Triglycerides HDL Cholesterol Urine WBC (Auto) Urine Creatinine Urine Total Protein Vancomycin Trough 06/08/19 06/08/19 06/09/19 17:28 23:24 05:20 WBC RBC Hgb Hct MCV MCH MCHC RDW Lymph % (Auto) [place] % (Auto) Eos % (Auto) Lymph # [place] # Eos # Seg Neutrophils % Seg Neuts % (Manual) Lymphocytes % (Manual) Monocytes % (Manual) Eosinophils % (Manual) Nucleated RBC % Seg Neutrophils # Seg Neutrophils # Man Lymphocytes # (Manual) Monocytes # (Manual) Eosinophils # (Manual) PT INR APTT POC ABG pH ABG pH POC ABG pCO2 POC ABG pO2 ABG pO2 ABG HCO3 ABG O2 Saturation ABG Base Excess ABG Hemoglobin Oxyhemoglobin Sodium Potassium Chloride Carbon Dioxide BUN Creatinine Glucose POC Glucose 215 H 200 H 173 H Uric Acid Calcium Phosphorus Magnesium AST ALT Total Creatine Kinase CK-MB (CK-2) Troponin T NT-Pro-B Natriuret Pep Total Protein Albumin Triglycerides HDL Cholesterol Urine WBC (Auto) Urine Creatinine Urine Total Protein Vancomycin Trough 06/09/19 06/09/19 06/09/19 12:07 18:32 23:51 WBC RBC Hgb Hct MCV MCH MCHC RDW Lymph % (Auto) [place] % (Auto) Eos % (Auto) Lymph # [place] # Eos # Seg Neutrophils % Seg Neuts % (Manual) Lymphocytes % (Manual) Monocytes % (Manual) Eosinophils % (Manual) Nucleated RBC % Seg Neutrophils # Seg Neutrophils # Man Lymphocytes # (Manual) Monocytes # (Manual) Eosinophils # (Manual) PT INR APTT POC ABG pH ABG pH POC ABG pCO2 POC ABG pO2 ABG pO2 ABG HCO3 ABG O2 Saturation ABG Base Excess ABG Hemoglobin Oxyhemoglobin Sodium Potassium Chloride Carbon Dioxide BUN Creatinine Glucose POC Glucose 117 H 169 H 147 H Uric Acid Calcium Phosphorus Magnesium AST ALT Total Creatine Kinase CK-MB (CK-2) Troponin T NT-Pro-B Natriuret Pep Total Protein Albumin Triglycerides HDL Cholesterol Urine WBC (Auto) Urine Creatinine Urine Total Protein Vancomycin Trough 06/10/19 06/10/19 06/10/19 05:45 05:45 06:01 WBC 14.6 H RBC Hgb 9.9 L Hct 32.2 L MCV MCH 27 L MCHC 31 L RDW 19.6 H Lymph % (Auto) 10.5 L [place] % (Auto) 9.4 H Eos % (Auto) Lymph # [place] # 1.4 H Eos # Seg Neutrophils % 79.9 H Seg Neuts % (Manual) Lymphocytes % (Manual) Monocytes % (Manual) Eosinophils % (Manual) Nucleated RBC % Seg Neutrophils # 11.7 H Seg Neutrophils # Man Lymphocytes # (Manual) Monocytes # (Manual) Eosinophils # (Manual) PT INR APTT POC ABG pH ABG pH POC ABG pCO2 POC ABG pO2 ABG pO2 ABG HCO3 ABG O2 Saturation ABG Base Excess ABG Hemoglobin Oxyhemoglobin Sodium 150 H Potassium Chloride 108.3 H Carbon Dioxide BUN 49 H Creatinine Glucose 172 H POC Glucose 165 H Uric Acid Calcium Phosphorus Magnesium 1.40 L AST ALT Total Creatine Kinase CK-MB (CK-2) Troponin T NT-Pro-B Natriuret Pep Total Protein Albumin Triglycerides HDL Cholesterol Urine WBC (Auto) Urine Creatinine Urine Total Protein Vancomycin Trough 06/10/19 06/10/19 06/11/19 12:11 18:30 00:02 WBC RBC Hgb Hct MCV MCH MCHC RDW Lymph % (Auto) [place] % (Auto) Eos % (Auto) Lymph # [place] # Eos # Seg Neutrophils % Seg Neuts % (Manual) Lymphocytes % (Manual) Monocytes % (Manual) Eosinophils % (Manual) Nucleated RBC % Seg Neutrophils # Seg Neutrophils # Man Lymphocytes # (Manual) Monocytes # (Manual) Eosinophils # (Manual) PT INR APTT POC ABG pH ABG pH POC ABG pCO2 POC ABG pO2 ABG pO2 ABG HCO3 ABG O2 Saturation ABG Base Excess ABG Hemoglobin Oxyhemoglobin Sodium Potassium Chloride Carbon Dioxide BUN Creatinine Glucose POC Glucose 150 H 154 H 130 H Uric Acid Calcium Phosphorus Magnesium AST ALT Total Creatine Kinase CK-MB (CK-2) Troponin T NT-Pro-B Natriuret Pep Total Protein Albumin Triglycerides HDL Cholesterol Urine WBC (Auto) Urine Creatinine Urine Total Protein Vancomycin Trough 06/11/19 06/11/19 06/11/19 05:33 08:34 12:33 WBC RBC Hgb Hct MCV MCH MCHC RDW Lymph % (Auto) [place] % (Auto) Eos % (Auto) Lymph # [place] # Eos # Seg Neutrophils % Seg Neuts % (Manual) Lymphocytes % (Manual) Monocytes % (Manual) Eosinophils % (Manual) Nucleated RBC % Seg Neutrophils # Seg Neutrophils # Man Lymphocytes # (Manual) Monocytes # (Manual) Eosinophils # (Manual) PT INR APTT POC ABG pH ABG pH POC ABG pCO2 POC ABG pO2 ABG pO2 ABG HCO3 ABG O2 Saturation ABG Base Excess ABG Hemoglobin Oxyhemoglobin Sodium 154 H Potassium Chloride 111.6 H Carbon Dioxide BUN 41 H Creatinine Glucose 147 H POC Glucose 183 H 185 H Uric Acid Calcium Phosphorus Magnesium AST ALT Total Creatine Kinase CK-MB (CK-2) Troponin T NT-Pro-B Natriuret Pep Total Protein Albumin Triglycerides HDL Cholesterol Urine WBC (Auto) Urine Creatinine Urine Total Protein Vancomycin Trough 06/11/19 06/11/19 06/12/19 18:22 23:46 03:21 WBC 11.9 H RBC 3.61 L Hgb 9.9 L Hct 31.7 L MCV MCH 27 L MCHC 31 L RDW 19.3 H Lymph % (Auto) 10.6 L [place] % (Auto) 8.6 H Eos % (Auto) Lymph # [place] # 1.0 H Eos # Seg Neutrophils % 80.6 H Seg Neuts % (Manual) Lymphocytes % (Manual) Monocytes % (Manual) Eosinophils % (Manual) Nucleated RBC % Seg Neutrophils # 9.6 H Seg Neutrophils # Man Lymphocytes # (Manual) Monocytes # (Manual) Eosinophils # (Manual) PT INR APTT POC ABG pH ABG pH POC ABG pCO2 POC ABG pO2 ABG pO2 ABG HCO3 ABG O2 Saturation ABG Base Excess ABG Hemoglobin Oxyhemoglobin Sodium Potassium Chloride Carbon Dioxide BUN Creatinine Glucose POC Glucose 158 H 182 H Uric Acid Calcium Phosphorus Magnesium AST ALT Total Creatine Kinase CK-MB (CK-2) Troponin T NT-Pro-B Natriuret Pep Total Protein Albumin Triglycerides HDL Cholesterol Urine WBC (Auto) Urine Creatinine Urine Total Protein Vancomycin Trough 06/12/19 06/12/19 06/12/19 03:21 06:04 11:28 WBC RBC Hgb Hct MCV MCH MCHC RDW Lymph % (Auto) [place] % (Auto) Eos % (Auto) Lymph # [place] # Eos # Seg Neutrophils % Seg Neuts % (Manual) Lymphocytes % (Manual) Monocytes % (Manual) Eosinophils % (Manual) Nucleated RBC % Seg Neutrophils # Seg Neutrophils # Man Lymphocytes # (Manual) Monocytes # (Manual) Eosinophils # (Manual) PT INR APTT POC ABG pH ABG pH POC ABG pCO2 POC ABG pO2 ABG pO2 ABG HCO3 ABG O2 Saturation ABG Base Excess ABG Hemoglobin Oxyhemoglobin Sodium 148 H Potassium Chloride 107.3 H Carbon Dioxide BUN 34 H Creatinine 0.7 L Glucose 194 H POC Glucose 133 H 167 H Uric Acid Calcium Phosphorus Magnesium 1.40 L AST ALT Total Creatine Kinase CK-MB (CK-2) Troponin T NT-Pro-B Natriuret Pep Total Protein Albumin Triglycerides HDL Cholesterol Urine WBC (Auto) Urine Creatinine Urine Total Protein Vancomycin Trough 06/12/19 06/12/19 06/13/19 18:47 21:27 00:04 WBC RBC Hgb Hct MCV MCH MCHC RDW Lymph % (Auto) [place] % (Auto) Eos % (Auto) Lymph # [place] # Eos # Seg Neutrophils % Seg Neuts % (Manual) Lymphocytes % (Manual) Monocytes % (Manual) Eosinophils % (Manual) Nucleated RBC % Seg Neutrophils # Seg Neutrophils # Man Lymphocytes # (Manual) Monocytes # (Manual) Eosinophils # (Manual) PT INR APTT POC ABG pH ABG pH POC ABG pCO2 POC ABG pO2 ABG pO2 ABG HCO3 ABG O2 Saturation ABG Base Excess ABG Hemoglobin Oxyhemoglobin Sodium Potassium Chloride Carbon Dioxide BUN Creatinine Glucose POC Glucose 210 H 263 H 248 H Uric Acid Calcium Phosphorus Magnesium AST ALT Total Creatine Kinase CK-MB (CK-2) Troponin T NT-Pro-B Natriuret Pep Total Protein Albumin Triglycerides HDL Cholesterol Urine WBC (Auto) Urine Creatinine Urine Total Protein Vancomycin Trough 06/13/19 06/13/19 04:32 05:46 WBC RBC Hgb Hct MCV MCH MCHC RDW Lymph % (Auto) [place] % (Auto) Eos % (Auto) Lymph # [place] # Eos # Seg Neutrophils % Seg Neuts % (Manual) Lymphocytes % (Manual) Monocytes % (Manual) Eosinophils % (Manual) Nucleated RBC % Seg Neutrophils # Seg Neutrophils # Man Lymphocytes # (Manual) Monocytes # (Manual) Eosinophils # (Manual) PT INR APTT POC ABG pH ABG pH POC ABG pCO2 POC ABG pO2 ABG pO2 ABG HCO3 ABG O2 Saturation ABG Base Excess ABG Hemoglobin Oxyhemoglobin Sodium Potassium Chloride Carbon Dioxide BUN 27 H Creatinine 0.7 L Glucose 253 H POC Glucose 201 H Uric Acid Calcium Phosphorus Magnesium AST ALT Total Creatine Kinase CK-MB (CK-2) Troponin T NT-Pro-B Natriuret Pep Total Protein Albumin Triglycerides HDL Cholesterol Urine WBC (Auto) Urine Creatinine Urine Total Protein Vancomycin Trough
--- NOTE | 2019-06-13 12:16 | Progress Note ---
Assessment and Plan # Acute kidney injury . , potentially from vancomycin toxicity, - Hemodialysis currently on hold. - His serum creatinine is 0.7 today. He is also making urine. However urine not be quantitated as he is incontinent. - Continue to hold dialysis for now and monitor his chemistries - agree with D5W for hypernatremia, reduce rate for now. Hypernatremia is improving - continue supportive measures, appreciate pulm and ID input - avoid nephrotoxins - daily labs # HTN: His blood pressure is still elevated. He is currently on a Cardene drip. He is currently requiring 50% FiO2 wire Ventimask. Shall give him 1 dose of 80 mg of Lasix IV push today. # Anemia: hemoglobin 9.9 , pRBC transfusion prn. Hold ESAs # Encephalopathy, seizure disorder, hypoxic respiratory failure, fevers: ID and pulm following, improving Subjective Date of service: 06/13/19 Principal diagnosis: HF; acute hypoxemic resp failure, SIRS, CARLA Interval history: Patient remains in the ICU. Currently on 50% FiO2 via Ventimask. Objective - Vital Signs Vital signs: Vital Signs - 12hr 06/13/19 06/13/19 06/13/19 00:15 00:31 00:32 Temperature Pulse Rate 96 H 91 H 91 H Pulse Rate [ From Monitor] Respiratory 12 20 20 Rate Blood Pressure 139/80 136/88 136/88 O2 Sat by Pulse 95 95 95 Oximetry 06/13/19 06/13/19 06/13/19 00:45 01:01 01:15 Temperature Pulse Rate 93 H 91 H 92 H Pulse Rate [ From Monitor] Respiratory 30 H 16 15 Rate Blood Pressure 129/78 144/80 146/77 O2 Sat by Pulse 94 96 96 Oximetry 06/13/19 06/13/19 06/13/19 01:20 01:31 01:45 Temperature Pulse Rate 92 H 100 H 99 H Pulse Rate [ 92 H From Monitor] Respiratory 18 16 14 Rate Blood Pressure 52/35 149/60 O2 Sat by Pulse 96 95 95 Oximetry 06/13/19 06/13/19 06/13/19 02:01 02:15 02:30 Temperature Pulse Rate 96 H 98 H 96 H Pulse Rate [ From Monitor] Respiratory 13 22 18 Rate Blood Pressure 150/105 150/105 162/96 O2 Sat by Pulse 94 90 94 Oximetry 06/13/19 06/13/19 06/13/19 02:45 03:01 03:15 Temperature Pulse Rate 97 H 99 H 99 H Pulse Rate [ From Monitor] Respiratory 14 15 20 Rate Blood Pressure 135/68 153/75 135/42 O2 Sat by Pulse 91 93 95 Oximetry 06/13/19 06/13/19 06/13/19 03:29 03:30 03:44 Temperature 98.6 F Pulse Rate 100 H 98 H Pulse Rate [ From Monitor] Respiratory 18 20 Rate Blood Pressure 146/94 146/94 O2 Sat by Pulse 93 94 Oximetry 06/13/19 06/13/19 06/13/19 03:45 04:00 04:15 Temperature Pulse Rate 99 H 102 H 102 H Pulse Rate [ From Monitor] Respiratory 19 19 25 H Rate Blood Pressure 129/93 131/92 131/92 O2 Sat by Pulse 94 96 91 Oximetry 06/13/19 06/13/19 06/13/19 04:30 04:45 05:00 Temperature Pulse Rate 103 H 103 H 106 H Pulse Rate [ From Monitor] Respiratory 14 23 18 Rate Blood Pressure 163/108 163/108 170/98 O2 Sat by Pulse 93 90 88 Oximetry 06/13/19 06/13/19 06/13/19 05:15 05:20 05:30 Temperature Pulse Rate 103 H 103 H 107 H Pulse Rate [ From Monitor] Respiratory 23 16 16 Rate Blood Pressure 181/85 193/76 O2 Sat by Pulse 88 92 89 Oximetry 06/13/19 06/13/19 06/13/19 05:45 05:49 06:00 Temperature Pulse Rate 102 H 104 H 104 H Pulse Rate [ From Monitor] Respiratory 23 29 H Rate Blood Pressure 188/71 188/71 167/84 O2 Sat by Pulse 93 89 Oximetry 06/13/19 06/13/19 06/13/19 06:15 06:31 06:45 Temperature Pulse Rate 104 H 99 H 100 H Pulse Rate [ From Monitor] Respiratory 26 H 17 25 H Rate Blood Pressure 161/77 160/70 140/104 O2 Sat by Pulse 88 90 88 Oximetry 06/13/19 06/13/19 06/13/19 07:00 07:15 07:30 Temperature Pulse Rate 97 H 97 H 98 H Pulse Rate [ From Monitor] Respiratory 30 H 19 24 Rate Blood Pressure 157/79 163/94 176/71 O2 Sat by Pulse 93 93 91 Oximetry 06/13/19 06/13/19 06/13/19 07:45 08:00 08:15 Temperature 99.7 F H Pulse Rate 99 H 98 H 96 H Pulse Rate [ 102 H From Monitor] Respiratory 22 12 22 Rate Blood Pressure 176/71 167/79 149/116 O2 Sat by Pulse 89 93 95 Oximetry 06/13/19 06/13/19 06/13/19 08:30 08:45 09:00 Temperature Pulse Rate 99 H 99 H 101 H Pulse Rate [ From Monitor] Respiratory 26 H 21 17 Rate Blood Pressure 161/74 143/92 152/77 O2 Sat by Pulse 92 93 93 Oximetry 06/13/19 06/13/19 06/13/19 09:15 09:31 09:45 Temperature Pulse Rate 102 H 102 H 104 H Pulse Rate [ From Monitor] Respiratory 14 20 21 Rate Blood Pressure 146/76 125/72 125/72 O2 Sat by Pulse 91 89 91 Oximetry 06/13/19 06/13/19 06/13/19 10:00 10:15 10:30 Temperature Pulse Rate 103 H 99 H 100 H Pulse Rate [ From Monitor] Respiratory 21 16 25 H Rate Blood Pressure 158/89 162/79 172/82 O2 Sat by Pulse 98 91 96 Oximetry 06/13/19 06/13/19 10:45 11:00 Temperature Pulse Rate 102 H 99 H Pulse Rate [ From Monitor] Respiratory 30 H 25 H Rate Blood Pressure 166/92 166/82 O2 Sat by Pulse 98 95 Oximetry - General Appearance General appearance: well-developed, well-nourished, appears stated age, obese EENT: PERRL, mucous membranes moist Neck: no JVD, no thyromegaly, no carotid bruit, supple, other (left IJ PermCath in place) Respiratory: Present: Ronchi (few scattered rhonchi) Cardiology: regular, normal heart rate, S1S2, no murmurs Gastrointestinal: normal, normoactive bowel sounds Integumentary: other (1+ edema) - Lab 06/12/19 03:21 06/13/19 04:32 Most recent lab results ABG pH 7.480 pH Units (7.350-7.450) H 06/07/19 04:30 ABG pCO2 37.4 mm Hg 06/07/19 04:30 ABG pO2 77.0 mm Hg (80.0-90.0) L 06/07/19 04:30 ABG HCO3 27.2 mmol/L (20.0-26.0) H 06/07/19 04:30 ABG O2 Saturation 96.7 % (95.0-99.0) 06/07/19 04:30 Calcium 8.6 mg/dL (8.4-10.2) 06/13/19 04:32 Phosphorus 3.70 mg/dL (2.5-4.5) 06/10/19 05:45 Magnesium 1.40 mg/dL (1.7-2.3) L 06/12/19 03:21 Urine Creatinine 292.8 mg/dL (0.1-20.0) H 05/07/19 22:40 Urine Sodium 11 mmol/L 05/07/19 22:40 Urine Total Protein 269 mg/dL (5-11.8) H 05/07/19 22:40 Medications & Allergies - Medications Allergies/Adverse Reactions: Allergies No Known Allergies Allergy (Verified 05/01/19 20:27) Home Medications: Home Medications Medication Instructions Recorded Confirmed Last Taken Type No Known Home Medications [No 05/03/19 05/03/19 Unknown History Reported Home Medications] Active Medications: Generic Name Dose Route Start Last Admin Trade Name Freq PRN Reason Stop Dose Admin Albumin Human 25 gm 05/19/19 10:47 Alburx 25% (Albumin) IV ARIANE PRN Hypotension Lipase/Protease/Amylase 1 each 05/14/19 15:[address] 10,500 Unit FEEDTUBE PRN PRN For Clogged Feeding Tube Clonidine HCl 0.3 mg 06/06/19 20:00 06/06/19 20:38 Catapres-Tts Patch TD 0.3 mg Lao VICKEY Administration Dextrose 50 gm 05/01/19 20:24 D50w (25gm) Vial IV Q30MIN PRN Hypoglycemia Protocol Enoxaparin Sodium 30 mg 05/16/19 10:00 06/13/19 09:48 Enoxaparin SUB-Q 30 mg QDAY VICKEY Administration Famotidine 20 mg 05/16/19 10:00 06/13/19 09:48 Pepcid PO 20 mg DAILY VICKEY Administration Hydrochlorothiazide 50 mg 06/12/19 12:00 06/13/19 09:49 Hctz PO 50 mg QDAY VICKEY Administration Levetiracetam 750 mg/ Dextrose 107.5 mls @ 400 mls/hr 06/09/19 22:00 06/13/19 10:23 IV 400 mls/hr Q12HR VICKEY Administration Dextrose 1,000 mls @ 125 mls/hr 06/10/19 08:00 06/13/19 05:00 D5w IV 125 mls/hr DIRECT VICKEY Administration Nicardipine HCl 50 mg/ Sodium 250 mls @ 25 mls/hr 06/12/19 07:00 06/13/19 1 0:00 Chloride IV 2.5 mg/hr TITR VICKEY 12.5 mls/hr Administration Protocol 5 MG/HR Insulin Glargine 20 units 06/07/19 22:00 06/12/19 21:17 Lantus SUB-Q 20 units QHS VICKEY Administration Insulin Human Lispro 0 unit 06/01/19 14:00 06/13/19 08:08 Humalog SUB-Q Not Given Q6HR [facility] Protocol Labetalol HCl 10 mg 06/11/19 22:48 06/12/19 01:20 Labetalol IV 10 mg Q4H PRN Administration BP >170/105; hold for HR <60 Labetalol HCl 200 mg 06/13/19 11:36 Labetalol PO Q8HR [facility] Methylprednisolone Sodium Succinate 40 mg 06/10/19 14:00 06/13/19 05:50 Solu-Medrol IV 40 mg Q8HR VICKEY Administration Minoxidil 2.5 mg 06/06/19 22:00 06/13/19 09:48 Loniten PO 2.5 mg BID VICKEY Administration Simple Syrup 15 ml 05/14/19 15:01 Simple Syrup FEEDTUBE PRN PRN Hypoglycemia Simple Syrup 30 ml 05/14/19 15:01 Simple Syrup FEEDTUBE PRN PRN Hypoglycemia Sodium Bicarbonate 325 mg 05/14/19 15:01 Sodium Bicarbonate FEEDTUBE PRN PRN For Clogged Feeding Tube
[2019-06-13] MEDS ORDERED: FUROSEMIDE 40 MG/4 ML INJ IV ONE (12:17)
[2019-06-13] MEDS ORDERED: INSULIN GLARGINE 100 UNITS/ML SUB-Q SCH (12:27)
--- NOTE | 2019-06-13 16:50 | Progress Note ---
Assessment and Plan Assessment and plan: 34-year-old man with morbid obesity was brought to the hospital for shortness of breath and insomnia. He was found to have severe hypoxia and bradycardia who then became pulseless, he was cyanotic and he was intubated after receiving CPR with 2 rounds of epinephrine. Hypertensive emergency Continue Cardene drip. Continue oral medications. Goal is to wean off Cardene. Acute respiratory failure with hypoxia on mechanical ventilator greater than 96 hours -Obesity hypoventilation Patient extubated 06/07 after being on the ventilator for 37 days, continue NIV at bedtime. Continue oxygen supplement in the daytime. Status post cardiac arrest anoxic/ischemic brain injury Patient's mentation is improved today., EEG was negative for seizures and neurology consult appreciated. Severe malnutrition Dysphasia Continue speech therapy, continue scopolamine as patient had copious secretions, suctioning as needed -Dietitian input appreciated, continue tube feeds Acute kidney injury due to ATN Dialysis now put on hold, kidney function improving Nephrology input appreciated, Morbid obesity; will need weight loss program upon discharge DVT prophylaxis; Lovenox Disposition; does not have a pay source, therefore home with home health services Critical care time 35 minutes History Interval history: No fevers No vomiting no seizure-like activity No diarrhea No agitation No obvious discomfort Hospitalist Physical - Physical exam Narrative exam: General.: Morbidly obese, patient is drooling HEENT: Moist mucous membranes, extraocular muscles intact, no lymphadenopathy Neck: supple Cardiac: S1-S2 heard Lungs: clear to auscultation bilaterally Abdomen: soft , nontender, nondistended, bowel sounds positive Extremities: no edema clubbing or cyanosis Skin: no rash or lesions Neurologic: He is awake and alert. He is currently nonverbal. But he nods and shakes his head. He obeys commands Psych: calm, - Constitutional Vitals: Temp Pulse Resp BP Pulse Ox 99.7 F H 93 H 29 H 119/61 96 06/13/19 08:00 06/13/19 16:01 06/13/19 16:01 06/13/19 16:01 06/13/19 16:01 General appearance: Present: mild distress, obese Results - Labs CBC & Chem 7: 06/12/19 03:21 06/13/19 04:32 Labs: Laboratory Last Values WBC 11.9 K/mm3 (4.5-11.0) H 06/12/19 03:21 RBC 3.61 M/mm3 (3.65-5.03) L 06/12/19 03:21 Hgb 9.9 gm/dl (11.8-15.2) L 06/12/19 03:21 Hct 31.7 % (35.5-45.6) L 06/12/19 03:21 MCV 88 fl (84-94) 06/12/19 03:21 MCH 27 pg (28-32) L 06/12/19 03:21 MCHC 31 % (32-34) L 06/12/19 03:21 RDW 19.3 % (13.2-15.2) H 06/12/19 03:21 Plt Count 159 K/mm3 (140-440) 06/12/19 03:21 Lymph % (Auto) 10.6 % (13.4-35.0) L 06/12/19 03:21 [place] % (Auto) 8.6 % (0.0-7.3) H 06/12/19 03:21 Eos % (Auto) 0.0 % (0.0-4.3) 06/12/19 03:21 Baso % (Auto) 0.2 % (0.0-1.8) 06/12/19 03:21 Lymph # 1.3 K/mm3 (1.2-5.4) 06/12/19 03:21 [place] # 1.0 K/mm3 (0.0-0.8) H 06/12/19 03:21 Eos # 0.0 K/mm3 (0.0-0.4) 06/12/19 03:21 Baso # 0.0 K/mm3 (0.0-0.1) 06/12/19 03:21 Add Manual Diff Complete 06/08/19 04:20 Total Counted 100 06/08/19 04:20 Seg Neutrophils % 80.6 % (40.0-70.0) H 06/12/19 03:21 Seg Neuts % (Manual) 87.0 % (40.0-70.0) H 06/08/19 04:20 Band Neutrophils % 0 % 06/08/19 04:20 Lymphocytes % (Manual) 7.0 % (13.4-35.0) L 06/08/19 04:20 Reactive Lymphs % (Man) 0 % 06/08/19 04:20 Monocytes % (Manual) 6.0 % (0.0-7.3) 06/08/19 04:20 Eosinophils % (Manual) 0 % (0.0-4.3) 06/08/19 04:20 Basophils % (Manual) 0 % (0.0-1.8) 06/08/19 04:20 Metamyelocytes % 0 % 06/08/19 04:20 Myelocytes % 0 % 06/08/19 04:20 Promyelocytes % 0 % 06/08/19 04:20 Blast Cells % 0 % 06/08/19 04:20 Nucleated RBC % Not Reportable 06/08/19 04:20 Seg Neutrophils # 9.6 K/mm3 (1.8-7.7) H 06/12/19 03:21 Seg Neutrophils # Man 13.9 K/mm3 (1.8-7.7) H 06/08/19 04:20 Band Neutrophils # 0.0 K/mm3 06/08/19 04:20 Lymphocytes # (Manual) 1.1 K/mm3 (1.2-5.4) L 06/08/19 04:20 Abs React Lymphs (Man) 0.0 K/mm3 06/08/19 04:20 Monocytes # (Manual) 1.0 K/mm3 (0.0-0.8) H 06/08/19 04:20 Eosinophils # (Manual) 0.0 K/mm3 (0.0-0.4) 06/08/19 04:20 Basophils # (Manual) 0.0 K/mm3 (0.0-0.1) 06/08/19 04:20 Metamyelocytes # 0.0 K/mm3 06/08/19 04:20 Myelocytes # 0.0 K/mm3 06/08/19 04:20 Promyelocytes # 0.0 K/mm3 06/08/19 04:20 Blast Cells # 0.0 K/mm3 06/08/19 04:20 WBC Morphology Not Reportable 06/08/19 04:20 Hypersegmented Neuts Not Reportable 06/08/19 04:20 Hyposegmented Neuts Not Reportable 06/08/19 04:20 Hypogranular Neuts Not Reportable 01/14/20 04:20 Smudge Cells Not Reportable 06/08/19 04:20 Toxic Granulation Not Reportable 06/08/19 04:20 Toxic Vacuolation Not Reportable 06/08/19 04:20 Dohle Bodies Not Reportable 06/08/19 04:20 Pelger-Huet Anomaly Not Reportable 06/08/19 04:20 Renea Rods Not Reportable 06/08/19 04:20 Platelet Estimate Consistent w auto 06/08/19 04:20 Clumped Platelets Not Reportable 06/08/19 04:20 Plt Clumps, EDTA Not Reportable 06/08/19 04:20 Large Platelets Not Reportable 06/08/19 04:20 Giant Platelets Not Reportable 06/08/19 04:20 Platelet Satelliting Not Reportable 06/08/19 04:20 Plt Morphology Comment Not Reportable 06/08/19 04:20 RBC Morphology Not Reportable 06/08/19 04:20 Dimorphic RBCs Not Reportable 06/08/19 04:20 Polychromasia Not Reportable 06/08/19 04:20 Hypochromasia Not Reportable 06/08/19 04:20 Poikilocytosis Not Reportable 06/08/19 04:20 Anisocytosis Not Reportable 06/08/19 04:20 Microcytosis Not Reportable 06/08/19 04:20 Macrocytosis Not Reportable 06/08/19 04:20 Spherocytes Not Reportable 06/08/19 04:20 Pappenheimer Bodies Not Reportable 06/08/19 04:20 Sickle Cells Not Reportable 06/08/19 04:20 Target Cells Not Reportable 06/08/19 04:20 Tear Drop Cells Not Reportable 06/08/19 04:20 Ovalocytes Rare 06/08/19 04:20 Stomatocytes Few 06/08/19 04:20 Helmet Cells Not Reportable 06/08/19 04:20 [place]-Thayer Bodies Not Reportable 06/08/19 04:20 Metter Rings Not Reportable 06/08/19 04:20 [place] Cells Not Reportable 06/08/19 04:20 Bite Cells Not Reportable 06/08/19 04:20 Crenated Cell Not Reportable 06/08/19 04:20 Elliptocytes Not Reportable 06/08/19 04:20 Acanthocytes (Spur) Not Reportable 06/08/19 04:20 Rouleaux Not Reportable 06/08/19 04:20 Hemoglobin C Crystals Not Reportable 06/08/19 04:20 Schistocytes Few 06/08/19 04:20 Malaria parasites Not Reportable 06/08/19 04:20 Syed Bodies Not Reportable 06/08/19 04:20 Hem Pathologist Commnt No 06/08/19 04:20 PT 15.4 Sec. (12.2-14.9) H 05/01/19 Unknown INR 1.23 (0.87-1.13) H 05/01/19 Unknown APTT 22.7 Sec. (24.2-36.6) L 05/01/19 Unknown POC ABG pH 7.462 (7.35-7.45) H 06/05/19 03:52 ABG pH 7.480 pH Units (7.350-7.450) H 06/07/19 04:30 POC ABG pCO2 39.8 (35-45) 06/05/19 03:52 ABG pCO2 37.4 mm Hg 06/07/19 04:30 POC ABG pO2 86 (80-105) 06/05/19 03:52 ABG pO2 77.0 mm Hg (80.0-90.0) L 06/07/19 04:30 POC ABG HCO3 28.4 (22-26 mml/L) 06/05/19 03:52 ABG HCO3 27.2 mmol/L (20.0-26.0) H 06/07/19 04:30 POC ABG Total CO2 30 (23-27mmol/L) 06/05/19 03:52 POC ABG O2 Sat 97 06/05/19 03:52 ABG O2 Saturation 96.7 % (95.0-99.0) 06/07/19 04:30 ABG O2 Content 9.5 (0.0-44) 06/07/19 04:30 POC ABG Base Excess 5 ((-2) - (+3)mmol/L) 06/05/19 03:52 ABG Base Excess 3.5 mmol/L (-2.0-3.0) H 06/07/19 04:30 ABG Hemoglobin 7.1 gm/dl (14.0-18.0) L 06/07/19 04:30 ABG Carboxyhemoglobin 2.1 % (0.0-5.0) 06/07/19 04:30 ABG Methemoglobin 0.4 % (0.0-1.5) 06/07/19 04:30 Oxyhemoglobin 94.2 % (95.0-99.0) L 06/07/19 04:30 FiO2 30 % 06/07/19 04:30 Sodium 144 mmol/L (137-145) 06/13/19 04:32 Potassium 4.0 mmol/L (3.6-5.0) 06/13/19 04:32 Chloride 103.0 mmol/L (98-107) 06/13/19 04:32 Carbon Dioxide 27 mmol/L (22-30) 06/13/19 04:32 Anion Gap 18 mmol/L 06/13/19 04:32 BUN 27 mg/dL (9-20) H 06/13/19 04:32 Creatinine 0.7 mg/dL (0.8-1.5) L 06/13/19 04:32 Estimated GFR > 60 ml/min 06/13/19 04:32 BUN/Creatinine Ratio 39 % 06/13/19 04:32 Glucose 253 mg/dL (75-100) H 06/13/19 04:32 POC Glucose 241 (70-105) H 06/13/19 13:30 Osmolality 327 Mosm/kg 05/07/19 13:45 Uric Acid 18.0 mg/dL (3.5-7.6) H 05/07/19 13:45 Calcium 8.6 mg/dL (8.4-10.2) 06/13/19 04:32 Phosphorus 3.70 mg/dL (2.5-4.5) 06/10/19 05:45 Magnesium 1.40 mg/dL (1.7-2.3) L 06/12/19 03:21 Total Bilirubin 0.50 mg/dL (0.1-1.2) 06/08/19 04:20 AST 23 units/L (5-40) 06/08/19 04:20 ALT 66 units/L (7-56) H 06/08/19 04:20 Alkaline Phosphatase 59 units/L (35-129) 06/08/19 04:20 Total Creatine Kinase 131 units/L (55-170) 05/02/19 04:41 CK-MB (CK-2) 5.2 ng/mL (0.0-4.0) H 05/02/19 04:41 CK-MB (CK-2) Rel Index 3.9 (0-4) 05/02/19 04:41 Troponin T 0.067 ng/mL (0.00-0.029) H D 05/02/19 04:41 NT-Pro-B Natriuret Pep 6831 pg/mL (0-450) H 05/01/19 Unknown Total Protein 5.5 g/dL (6.3-8.2) L 06/08/19 04:20 Albumin 2.9 g/dL (3.9-5) L 06/08/19 04:20 Albumin/Globulin Ratio 1.1 % 06/08/19 04:20 Triglycerides 173 mg/dL (2-149) H 05/17/19 Unknown Cholesterol 173 mg/dL (50-199) 05/02/19 00:06 LDL Cholesterol Direct 126 mg/dL (50-130) 05/02/19 00:06 HDL Cholesterol 18 mg/dL (40-59) L 05/02/19 00:06 Cholesterol/HDL Ratio 9.61 % 05/02/19 00:06 Procalcitonin 0.54 ng/mL (<0.15) 05/03/19 11:52 Urine Color Yellow (Yellow) 05/20/19 12:00 Urine Turbidity Cloudy (Clear) 05/20/19 12:00 Urine pH 5.0 (5.0-7.0) 05/20/19 12:00 Ur Specific Walker 1.015 (1.003-1.030) 05/20/19 12:00 Urine Protein 30 mg/dl mg/dL (Negative) 05/20/19 12:00 Urine Glucose (UA) Neg mg/dL (Negative) 05/20/19 12:00 Urine Ketones Neg mg/dL (Negative) 05/20/19 12:00 Urine Blood Lg (Negative) 05/20/19 12:00 Urine Nitrite Neg (Negative) 05/20/19 12:00 Urine Bilirubin Neg (Negative) 05/20/19 12:00 Urine Urobilinogen < 2.0 mg/dL (<2.0) 05/20/19 12:00 Ur Leukocyte Esterase Mod (Negative) 05/20/19 12:00 Urine WBC (Auto) 26.0 /HPF (0.0-6.0) H 05/20/19 12:00 Urine RBC (Auto) 83.0 /HPF (0.0-6.0) 05/20/19 12:00 Urine Bacteria (Auto) 1+ /HPF (Negative) 05/20/19 12:00 Uric Acid Crystals 3+ 05/03/19 10:55 Urine Mucus Few /HPF 05/20/19 12:00 Urine Yeast (Budding) 3+ /HPF 05/20/19 12:00 Urine Creatinine 292.8 mg/dL (0.1-20.0) H 05/07/19 22:40 Urine Sodium 11 mmol/L 05/07/19 22:40 Urine Total Protein 269 mg/dL (5-11.8) H 05/07/19 22:40 Vancomycin Trough 20.5 ug/mL (5.0-20.0) H 05/15/19 09:00 Random Vancomycin 11.5 ug/mL (0-40.0) 05/27/19 06:00 AMNA Screen Negative (Negative) 05/07/19 13:45 Hepatitis A IgM Ab Non-reactive (NonReactive) 05/07/19 13:45 Hep Bs Antigen Non-reactive (Negative) 05/07/19 13:45 Hep B Core IgM Ab Non-reactive (NonReactive) 05/07/19 13:45 Hepatitis C Antibody Non-reactive (NonReactive) 05/07/19 13:45 Active Medications - Current Medications Current Medications: Generic Name Dose Route Start Last Admin Trade Name Freq PRN Reason Stop Dose Admin Albumin Human 25 gm 05/19/19 10:47 Alburx 25% (Albumin) IV ARIANE PRN Hypotension Lipase/Protease/Amylase 1 each 05/14/19 15:01 Pancreaze 10,500 Unit FEEDTUBE PRN PRN For Clogged Feeding Tube Clonidine HCl 0.3 mg 06/06/19 20:00 06/06/19 20:38 Catapres-Tts Patch TD 0.3 mg Lao VICKEY Administration Dextrose 50 gm 05/01/19 20:24 D50w (25gm) Vial IV Q30MIN PRN Hypoglycemia Protocol Enoxaparin Sodium 30 mg 05/16/19 10:00 06/13/19 09:48 Enoxaparin SUB-Q 30 mg QDAY VICKEY Administration Famotidine 20 mg 05/16/19 10:00 06/13/19 09:48 Pepcid PO 20 mg DAILY VICKEY Administration Hydrochlorothiazide 50 mg 06/12/19 12:00 06/13/19 09:49 Hctz PO 50 mg QDAY VICKEY Administration Levetiracetam 750 mg/ Dextrose 107.5 mls @ 400 mls/hr 06/09/19 22:00 06/13/19 10:23 IV 400 mls/hr Q12HR VICKEY Administration Dextrose 1,000 mls @ 75 mls/hr 06/10/19 08:00 06/13/19 05:00 D5w IV 125 mls/hr DIRECT VICKEY Administration Nicardipine HCl 50 mg/ Sodium 250 mls @ 25 mls/hr 06/12/19 07:00 06/13/19 10:00 Chloride IV 2.5 mg/hr TITR VICKEY 12.5 mls/hr Administration Protocol 5 MG/HR Insulin Glargine 25 units 06/13/19 12:27 Lantus SUB-Q QHS VICKEY Insulin Human Lispro 0 unit 06/01/19 14:00 06/13/19 12:58 Humalog SUB-Q 4 unit Q6HR VICKEY Administration Protocol Labetalol HCl 10 mg 06/11/19 22:48 06/12/19 01:20 Labetalol IV 10 mg Q4H PRN Administration BP >170/105; hold for HR <60 Labetalol HCl 200 mg 06/13/19 11:36 06/13/19 13:24 Labetalol PO 200 mg Q8HR VICKEY Administration Methylprednisolone Sodium Succinate 40 mg 06/10/19 14:00 06/13/19 13:22 Solu-Medrol IV 40 mg Q8HR VICKEY Administration Minoxidil 2.5 mg 06/06/19 22:00 06/13/19 09:48 Loniten PO 2.5 mg BID VICKEY Administration Simple Syrup 15 ml 05/14/19 15:01 Simple Syrup FEEDTUBE PRN PRN Hypoglycemia Simple Syrup 30 ml 05/14/19 15:01 Simple Syrup FEEDTUBE PRN PRN Hypoglycemia Sodium Bicarbonate 325 mg 05/14/19 15:01 Sodium Bicarbonate FEEDTUBE PRN PRN For Clogged Feeding Tube Nutrition/Malnutrition Assess - Dietary Evaluation Nutrition/Malnutrition Findings: Nutrition Notes Start: 05/04/19 12:54 Freq: Status: Active Protocol: Document 06/10/19 12:28 CW (Rec: 06/10/19 12:53 CW [id number]) Co-Sign 06/10/19 12:28 LP Nutrition Notes Initial or Follow up Reassessment Current Diagnosis Acute Kidney Injury,Sepsis, Respiratory Failure Other Pertinent Diagnosis on HD Current Diet Nepro 1.8 at 50 ml/hr Labs/Tests Na 150 BUN 49 BG 172 POC 165 Pertinent Medications D5w at 125 ml/hr Humalog Solumedrol Enoxaparin Height 6 ft 4 in Weight 257.2 kg [place] Body Weight (kg) 91.81 BMI 69.0 Weight change and time frame No wt change noted Weight Status Morbidly Obese Subjective/Other Information Pt tolerating Nepro at 50ml/hr . Pt on HD. Pt Extubated on . [employer] attempted swallow eval but was unable to complete D /T biPAP. Pt has elevated Na levels. Water flush increased to 250 ml q4hr. Percent of energy/protein needs met: 100%/43% Burn Absent Trauma Absent Current % PO Negligible Minimum of two criteria No physical signs of malnutrition #1 Nutrition Diagnosis Inadequate oral intake Diagnosis Progress(for reassessment Continues documentation) Is patient on ventilator? No Is Patient Ambulatory and/or Out of Bed No REE-([facility]-confined to bed) 4342.284 Kcal/Kg value to use for calculation 8 Approximate Energy Requirements Using 8 kcal/Kg Calculation Used for Recommendations Kcal/kg Additional Notes PRO needs: 225 g (up to 2.5 g/ kg IBW) Fluid needs: 1 ml/kcal Nutrition Intervention Change Diet Order: Continue TF Nutrition Support: Nepro 1.8 at 50 ml/hr Flush with 250ml q4h Kcal 2,160 Protein (gm) 97 Fluid (mL) 872 Goal #1 TF tolerance Goal #2 Meet at least 75% kcal/PRO needs via TF Goal #3 diet advancement Anticipated Discharge Needs: Unable to determine at this time Follow-Up By: 06/15/19 Additional Comments Follow for TF tolerance/ diet advancement/ Na labs
[2019-06-13] MEDS: cloNIDine TTS 0.3 MG/24 HR PATCH TD SCH (20:28)
[2019-06-14] MEDS: DEXTROSE 5% IN WATER 1,000 ML IV SCH (01:44)
[2019-06-14] MEDS: INSULIN LISPRO 100 UNIT/ML SUB-Q SCH ×3 (05:48→23:56)
[2019-06-14] MEDS: methylPREDNISolone Sod Succinate 40 MG/1 ML INJ IV SCH ×3 (05:48→18:10)
[2019-06-14 06:07] LABS: BUN/Creatinine Ratio 41; Blood Urea Nitrogen 37 mg/dL (9-20); Calcium 8.6 mg/dL (8.4-10.2); Hemolysis Index 3
--- NOTE | 2019-06-14 08:44 | Progress Note ---
Assessment and Plan Assessment and plan: 34-year-old man with morbid obesity was brought to the hospital for shortness of breath and insomnia. He was found to have severe hypoxia and bradycardia who then became pulseless, he was cyanotic and he was intubated after receiving CPR with 2 rounds of epinephrine. Hypertensive emergency cont bp meds off cardene drip since 06/13 Acute respiratory failure with hypoxia on mechanical ventilator greater than 96 hours -Obesity hypoventilation Patient extubated 06/07 after being on the ventilator for 37 days, continue NIV at bedtime. Continue oxygen supplement in the daytime. Status post cardiac arrest anoxic/ischemic brain injury Patient's mentation is improved today., EEG was negative for seizures and neurology consult appreciated. 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 Morbid obesity; will need weight loss program upon discharge DVT prophylaxis; Lovenox Disposition; does not have a pay source, therefore home with home health services Downgrade to [facility] History Interval history: No fevers No vomiting no seizure-like activity No diarrhea No agitation No obvious discomfort Hospitalist Physical - Physical exam Narrative exam: General.: Morbidly obese, patient is drooling HEENT: Moist mucous membranes, extraocular muscles intact, no lymphadenopathy Neck: supple Cardiac: S1-S2 heard Lungs: clear to auscultation bilaterally Abdomen: soft , nontender, nondistended, bowel sounds positive Extremities: no edema clubbing or cyanosis Skin: no rash or lesions Neurologic: He is awake and alert. He is currently nonverbal. But he nods and shakes his head. He obeys commands Psych: calm, - Constitutional Vitals: Temp Pulse Resp BP Pulse Ox 99.1 F 87 19 165/86 97 06/14/19 03:02 06/14/19 07:00 06/14/19 07:00 06/14/19 07:00 06/14/19 07:00 General appearance: Present: no acute distress Results - Labs CBC & Chem 7: 06/12/19 03:21 06/14/19 04:50 Labs: Laboratory Last Values WBC 11.9 K/mm3 (4.5-11.0) H 06/12/19 03:21 RBC 3.61 M/mm3 (3.65-5.03) L 06/12/19 03:21 Hgb 9.9 gm/dl (11.8-15.2) L 06/12/19 03:21 Hct 31.7 % (35.5-45.6) L 06/12/19 03:21 MCV 88 fl (84-94) 06/12/19 03:21 MCH 27 pg (28-32) L 06/12/19 03:21 MCHC 31 % (32-34) L 06/12/19 03:21 RDW 19.3 % (13.2-15.2) H 06/12/19 03:21 Plt Count 159 K/mm3 (140-440) 06/12/19 03:21 Lymph % (Auto) 10.6 % (13.4-35.0) L 06/12/19 03:21 [place] % (Auto) 8.6 % (0.0-7.3) H 06/12/19 03:21 Eos % (Auto) 0.0 % (0.0-4.3) 06/12/19 03:21 Baso % (Auto) 0.2 % (0.0-1.8) 06/12/19 03:21 Lymph # 1.3 K/mm3 (1.2-5.4) 06/12/19 03:21 [place] # 1.0 K/mm3 (0.0-0.8) H 06/12/19 03:21 Eos # 0.0 K/mm3 (0.0-0.4) 06/12/19 03:21 Baso # 0.0 K/mm3 (0.0-0.1) 06/12/19 03:21 Add Manual Diff Complete 06/08/19 04:20 Total Counted 100 06/08/19 04:20 Seg Neutrophils % 80.6 % (40.0-70.0) H 06/12/19 03:21 Seg Neuts % (Manual) 87.0 % (40.0-70.0) H 06/08/19 04:20 Band Neutrophils % 0 % 06/08/19 04:20 Lymphocytes % (Manual) 7.0 % (13.4-35.0) L 06/08/19 04:20 Reactive Lymphs % (Man) 0 % 06/08/19 04:20 Monocytes % (Manual) 6.0 % (0.0-7.3) 06/08/19 04:20 Eosinophils % (Manual) 0 % (0.0-4.3) 06/08/19 04:20 Basophils % (Manual) 0 % (0.0-1.8) 06/08/19 04:20 Metamyelocytes % 0 % 06/08/19 04:20 Myelocytes % 0 % 06/08/19 04:20 Promyelocytes % 0 % 06/08/19 04:20 Blast Cells % 0 % 06/08/19 04:20 Nucleated RBC % Not Reportable 06/08/19 04:20 Seg Neutrophils # 9.6 K/mm3 (1.8-7.7) H 06/12/19 03:21 Seg Neutrophils # Man 13.9 K/mm3 (1.8-7.7) H 06/08/19 04:20 Band Neutrophils # 0.0 K/mm3 06/08/19 04:20 Lymphocytes # (Manual) 1.1 K/mm3 (1.2-5.4) L 06/08/19 04:20 Abs React Lymphs (Man) 0.0 K/mm3 06/08/19 04:20 Monocytes # (Manual) 1.0 K/mm3 (0.0-0.8) H 06/08/19 04:20 Eosinophils # (Manual) 0.0 K/mm3 (0.0-0.4) 06/08/19 04:20 Basophils # (Manual) 0.0 K/mm3 (0.0-0.1) 06/08/19 04:20 Metamyelocytes # 0.0 K/mm3 06/08/19 04:20 Myelocytes # 0.0 K/mm3 06/08/19 04:20 Promyelocytes # 0.0 K/mm3 06/08/19 04:20 Blast Cells # 0.0 K/mm3 06/08/19 04:20 WBC Morphology Not Reportable 06/08/19 04:20 Hypersegmented Neuts Not Reportable 06/08/19 04:20 Hyposegmented Neuts Not Reportable 06/08/19 04:20 Hypogranular Neuts Not Reportable 06/08/19 04:20 Smudge Cells Not Reportable 06/08/19 04:20 Toxic Granulation Not Reportable 06/08/19 04:20 Toxic Vacuolation Not Reportable 06/08/19 04:20 Dohle Bodies Not Reportable 06/08/19 04:20 Pelger-Huet Anomaly Not Reportable 06/08/19 04:20 Renea Rods Not Reportable 06/08/19 04:20 Platelet Estimate Consistent w auto 06/08/19 04:20 Clumped Platelets Not Reportable 06/08/19 04:20 Plt Clumps, EDTA Not Reportable 06/08/19 04:20 Large Platelets Not Reportable 06/08/19 04:20 Giant Platelets Not Reportable 06/08/19 04:20 Platelet Satelliting Not Reportable 06/08/19 04:20 Plt Morphology Comment Not Reportable 06/08/19 04:20 RBC Morphology Not Reportable 06/08/19 04:20 Dimorphic RBCs Not Reportable 06/08/19 04:20 Polychromasia Not Reportable 06/08/19 04:20 Hypochromasia Not Reportable 06/08/19 04:20 Poikilocytosis Not Reportable 06/08/19 04:20 Anisocytosis Not Reportable 06/08/19 04:20 Microcytosis Not Reportable 06/08/19 04:20 Macrocytosis Not Reportable 06/08/19 04:20 Spherocytes Not Reportable 06/08/19 04:20 Pappenheimer Bodies Not Reportable 06/08/19 04:20 Sickle Cells Not Reportable 06/08/19 04:20 Target Cells Not Reportable 06/08/19 04:20 Tear Drop Cells Not Reportable 06/08/19 04:20 Ovalocytes Rare 06/08/19 04:20 Stomatocytes Few 06/08/19 04:20 Helmet Cells Not Reportable 06/08/19 04:20 [place] Bodies Not Reportable 06/08/19 04:20 [place] Rings Not Reportable 06/08/19 04:20 [place] Cells Not Reportable 06/08/19 04:20 Bite Cells Not Reportable 06/08/19 04:20 Crenated Cell Not Reportable 06/08/19 04:20 Elliptocytes Not Reportable 06/08/19 04:20 Acanthocytes (Spur) Not Reportable 06/08/19 04:20 Rouleaux Not Reportable 06/08/19 04:20 Hemoglobin C Crystals Not Reportable 06/08/19 04:20 Schistocytes Few 06/08/19 04:20 Malaria parasites Not Reportable 06/08/19 04:20 Syed Bodies Not Reportable 06/08/19 04:20 Hem Pathologist Commnt No 06/08/19 04:20 PT 15.4 Sec. (12.2-14.9) H 05/01/19 Unknown INR 1.23 (0.87-1.13) H 05/01/19 Unknown APTT 22.7 Sec. (24.2-36.6) L 05/01/19 Unknown POC ABG pH 7.462 (7.35-7.45) H 06/05/19 03:52 ABG pH 7.480 pH Units (7.350-7.450) H 06/07/19 04:30 POC ABG pCO2 39.8 (35-45) 06/05/19 03:52 ABG pCO2 37.4 mm Hg 06/07/19 04:30 POC ABG pO2 86 (80-105) 06/05/19 03:52 ABG pO2 77.0 mm Hg (80.0-90.0) L 06/07/19 04:30 POC ABG HCO3 28.4 (22-26 mml/L) 06/05/19 03:52 ABG HCO3 27.2 mmol/L (20.0-26.0) H 06/07/19 04:30 POC ABG Total CO2 30 (23-27mmol/L) 06/05/19 03:52 POC ABG O2 Sat 97 06/05/19 03:52 ABG O2 Saturation 96.7 % (95.0-99.0) 06/07/19 04:30 ABG O2 Content 9.5 (0.0-44) 06/07/19 04:30 POC ABG Base Excess 5 ((-2) - (+3)mmol/L) 06/05/19 03:52 ABG Base Excess 3.5 mmol/L (-2.0-3.0) H 06/07/19 04:30 ABG Hemoglobin 7.1 gm/dl (14.0-18.0) L 06/07/19 04:30 ABG Carboxyhemoglobin 2.1 % (0.0-5.0) 06/07/19 04:30 ABG Methemoglobin 0.4 % (0.0-1.5) 06/07/19 04:30 Oxyhemoglobin 94.2 % (95.0-99.0) L 06/07/19 04:30 FiO2 30 % 06/07/19 04:30 Sodium 141 mmol/L (137-145) 06/14/19 04:50 Potassium 4.2 mmol/L (3.6-5.0) 06/14/19 04:50 Chloride 100.5 mmol/L (98-107) 06/14/19 04:50 Carbon Dioxide 27 mmol/L (22-30) 06/14/19 04:50 Anion Gap 18 mmol/L 06/14/19 04:50 BUN 37 mg/dL (9-20) H 06/14/19 04:50 Creatinine 0.9 mg/dL (0.8-1.5) 06/14/19 04:50 Estimated GFR > 60 ml/min 06/14/19 04:50 BUN/Creatinine Ratio 41 % 06/14/19 04:50 Glucose 256 mg/dL (75-100) H 06/14/19 04:50 POC Glucose 239 (70-105) H 06/14/19 05:26 Osmolality 327 Mosm/kg 05/07/19 13:45 Uric Acid 18.0 mg/dL (3.5-7.6) H 05/07/19 13:45 Calcium 8.6 mg/dL (8.4-10.2) 06/14/19 04:50 Phosphorus 3.70 mg/dL (2.5-4.5) 06/10/19 05:45 Magnesium 1.40 mg/dL (1.7-2.3) L 06/12/19 03:21 Total Bilirubin 0.50 mg/dL (0.1-1.2) 06/08/19 04:20 AST 23 units/L (5-40) 06/08/19 04:20 ALT 66 units/L (7-56) H 06/08/19 04:20 Alkaline Phosphatase 59 units/L (35-129) 06/08/19 04:20 Total Creatine Kinase 131 units/L (55-170) 05/02/19 04:41 CK-MB (CK-2) 5.2 ng/mL (0.0-4.0) H 05/02/19 04:41 CK-MB (CK-2) Rel Index 3.9 (0-4) 05/02/19 04:41 Troponin T 0.067 ng/mL (0.00-0.029) H D 05/02/19 04:41 NT-Pro-B Natriuret Pep 6831 pg/mL (0-450) H 05/01/19 Unknown Total Protein 5.5 g/dL (6.3-8.2) L 06/08/19 04:20 Albumin 2.9 g/dL (3.9-5) L 06/08/19 04:20 Albumin/Globulin Ratio 1.1 % 06/08/19 04:20 Triglycerides 173 mg/dL (2-149) H 05/17/19 Unknown Cholesterol 173 mg/dL (50-199) 05/02/19 00:06 LDL Cholesterol Direct 126 mg/dL (50-130) 05/02/19 00:06 HDL Cholesterol 18 mg/dL (40-59) L 05/02/19 00:06 Cholesterol/HDL Ratio 9.61 % 05/02/19 00:06 Procalcitonin 0.54 ng/mL (<0.15) 05/03/19 11:52 Urine Color Yellow (Yellow) 05/20/19 12:00 Urine Turbidity Cloudy (Clear) 05/20/19 12:00 Urine pH 5.0 (5.0-7.0) 05/20/19 12:00 Ur Specific [place] 1.015 (1.003-1.030) 05/20/19 12:00 Urine Protein 30 mg/dl mg/dL (Negative) 05/20/19 12:00 Urine Glucose (UA) Neg mg/dL (Negative) 05/20/19 12:00 Urine Ketones Neg mg/dL (Negative) 05/20/19 12:00 Urine Blood Lg (Negative) 05/20/19 12:00 Urine Nitrite Neg (Negative) 05/20/19 12:00 Urine Bilirubin Neg (Negative) 05/20/19 12:00 Urine Urobilinogen < 2.0 mg/dL (<2.0) 05/20/19 12:00 Ur Leukocyte Esterase Mod (Negative) 05/20/19 12:00 Urine WBC (Auto) 26.0 /HPF (0.0-6.0) H 05/20/19 12:00 Urine RBC (Auto) 83.0 /HPF (0.0-6.0) 05/20/19 12:00 Urine Bacteria (Auto) 1+ /HPF (Negative) 05/20/19 12:00 Uric Acid Crystals 3+ 05/03/19 10:55 Urine Mucus Few /HPF 05/20/19 12:00 Urine Yeast (Budding) 3+ /HPF 05/20/19 12:00 Urine Creatinine 292.8 mg/dL (0.1-20.0) H 05/07/19 22:40 Urine Sodium 11 mmol/L 05/07/19 22:40 Urine Total Protein 269 mg/dL (5-11.8) H 05/07/19 22:40 Vancomycin Trough 20.5 ug/mL (5.0-20.0) H 05/15/19 09:00 Random Vancomycin 11.5 ug/mL (0-40.0) 05/27/19 06:00 AMNA Screen Negative (Negative) 05/07/19 13:45 Hepatitis A IgM Ab Non-reactive (NonReactive) 05/07/19 13:45 Hep Bs Antigen Non-reactive (Negative) 05/07/19 13:45 Hep B Core IgM Ab Non-reactive (NonReactive) 05/07/19 13:45 Hepatitis C Antibody Non-reactive (NonReactive) 05/07/19 13:45 Active Medications - Current Medications Current Medications: Generic Name Dose Route Start Last Admin Trade Name Freq PRN Reason Stop Dose Admin Albumin Human 25 gm 05/19/19 10:47 Alburx 25% (Albumin) IV ARIANE PRN Hypotension Lipase/Protease/Amylase 1 each 05/14/19 15:01 Pancreaze 10,500 Unit FEEDTUBE PRN PRN For Clogged Feeding Tube Clonidine HCl 0.3 mg 06/06/19 20:00 06/13/19 20:28 Catapres-Tts Patch TD 0.3 mg Lao VICKEY Administration Dextrose 50 gm 05/01/19 20:24 D50w (25gm) Vial IV Q30MIN PRN Hypoglycemia Protocol Enoxaparin Sodium 30 mg 05/16/19 10:00 06/13/19 09:48 Enoxaparin SUB-Q 30 mg QDAY VICKEY Administration Famotidine 20 mg 05/16/19 10:00 06/13/19 09:48 Pepcid PO 20 mg DAILY VICKEY Administration Hydrochlorothiazide 50 mg 06/12/19 12:00 06/13/19 09:49 Hctz PO 50 mg QDAY VICKEY Administration Levetiracetam 750 mg/ Dextrose 107.5 mls @ 400 mls/hr 06/09/19 22:00 06/13/19 22:12 IV 400 mls/hr Q12HR VICKEY Administration Dextrose 1,000 mls @ 75 mls/hr 06/10/19 08:00 06/14/19 01:44 D5w IV 125 mls/hr DIRECT VICKEY Administration Nicardipine HCl 50 mg/ Sodium 250 mls @ 25 mls/hr 06/12/19 07:00 06/13/19 18:00 Chloride IV 0 mg/hr TITR VICKEY 0 mls/hr Titration Protocol 5 MG/HR Insulin Glargine 30 units 06/14/19 08:43 Lantus SUB-Q QHS VICKEY Insulin Human Lispro 0 unit 06/01/19 14:00 06/14/19 05:48 Humalog SUB-Q 4 unit Q6HR VICKEY Administration Protocol Labetalol HCl 10 mg 06/11/19 22:48 06/12/19 01:20 Labetalol IV 10 mg Q4H PRN Administration BP >170/105; hold for HR <60 Labetalol HCl 200 mg 06/13/19 11:36 06/14/19 06:06 Labetalol PO 200 mg Q8HR VICKEY Administration Methylprednisolone Sodium Succinate 40 mg 06/10/19 14:00 06/14/19 05:48 Solu-Medrol IV 40 mg Q8HR VICKEY Administration Minoxidil 2.5 mg 06/06/19 22:00 06/13/19 22:12 Loniten PO 2.5 mg BID VICKEY Administration Simple Syrup 15 ml 05/14/19 15:01 Simple Syrup FEEDTUBE PRN PRN Hypoglycemia Simple Syrup 30 ml 05/14/19 15:01 Simple Syrup FEEDTUBE PRN PRN Hypoglycemia Sodium Bicarbonate 325 mg 05/14/19 15:01 Sodium Bicarbonate FEEDTUBE PRN PRN For Clogged Feeding Tube Nutrition/Malnutrition Assess - Dietary Evaluation Nutrition/Malnutrition Findings: Nutrition Notes Start: 05/04/19 12:54 Freq: Status: Active Protocol: Document 06/10/19 12:28 CW (Rec: 06/10/19 12:53 CW [id number]) Co-Sign 06/10/19 12:28 LP Nutrition Notes Initial or Follow up Reassessment Current Diagnosis Acute Kidney Injury,Sepsis, Respiratory Failure Other Pertinent Diagnosis on HD Current Diet Nepro 1.8 at 50 ml/hr Labs/Tests Na 150 BUN 49 BG 172 POC 165 Pertinent Medications D5w at 125 ml/hr Humalog Solumedrol Enoxaparin Height 6 ft 4 in Weight 257.2 kg [place] Body Weight (kg) 91.81 BMI 69.0 Weight change and time frame No wt change noted Weight Status Morbidly Obese Subjective/Other Information Pt tolerating Nepro at 50ml/hr . Pt on HD. Pt Extubated on . 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 Pt has elevated Na levels. Water flush increased to 250 ml q4hr. Percent of energy/protein needs met: 100%/43% Burn Absent Trauma Absent Current % PO Negligible Minimum of two criteria No physical signs of malnutrition #1 Nutrition Diagnosis Inadequate oral intake Diagnosis Progress(for reassessment Continues documentation) Is patient on ventilator? No Is Patient Ambulatory and/or Out of Bed No REE-([facility]-confined to bed) 4342.284 Kcal/Kg value to use for calculation 8 Approximate Energy Requirements Using 8 kcal/Kg Calculation Used for Recommendations Kcal/kg Additional Notes PRO needs: 225 g (up to 2.5 g/ kg IBW) Fluid needs: 1 ml/kcal Nutrition Intervention Change Diet Order: Continue TF Nutrition Support: Nepro 1.8 at 50 ml/hr Flush with 250ml q4h Kcal 2,160 Protein (gm) 97 Fluid (mL) 872 Goal #1 TF tolerance Goal #2 Meet at least 75% kcal/PRO needs via TF Goal #3 diet advancement Anticipated Discharge Needs: Unable to determine at this time Follow-Up By: 06/15/19 Additional Comments Follow for TF tolerance/ diet advancement/ Na labs
[2019-06-14] MEDS: MINOXIDIL 2.5 MG TAB PO SCH ×2 (10:26→23:54)
[2019-06-14] MEDS: levETIRAcetam 750 MG in DEXTROSE 5% IN WATER 100 ML IV SCH ×2 (10:26→23:15)
[2019-06-14] MEDS: FAMOTIDINE 20 MG TAB PO SCH (10:26)
[2019-06-14] MEDS: hydroCHLOROthiazide 25 MG TAB PO SCH (10:26)
[2019-06-14] MEDS: ENOXAPARIN 30 MG/0.3 ML INJ SUB-Q SCH ×2 (10:27→18:10)
--- NOTE | 2019-06-14 11:51 | Progress Note ---
Assessment and Plan - Patient Problems (1) Acute kidney injury Current Visit: Yes Status: Acute Plan to address problem: Acute kidney injury now dialysis dependent improving Baseline creatinine unknown Kidney function is improving Chest x-ray with concern for Bibasilar haziness? Atelectasis He is no longer dialysis dependent Plan to remove PermCath in the coming days if renal function continues to be stable (2) Hypercapnic respiratory failure Current Visit: Yes Status: Acute Qualifiers: Chronicity: acute on chronic Qualified Code(s): J96.22 - Acute and chronic respiratory failure with hypercapnia Plan to address problem: Acute on chronic respiratory failure with hypercapnia Patient is currently intubated chest x-ray with some concern for bibasilar haziness Given morbid obesity. Obesity hypoventilation Wean oxygen as tolerated (3) Anemia Current Visit: Yes Status: Acute Plan to address problem: Mild anemia Monitor CBC (4) Anemia Current Visit: Yes Status: Acute Plan to address problem: anemia secondary to chronic inflammation and underlying acute illness Monitor CBC Subjective Principal diagnosis: HF; acute hypoxemic resp failure, SIRS, CARLA Interval history: 34-year-old gentleman with morbid obesity, found with cyanosis difficulty with breathing and brought to the emergency room he required intubation review of s ystems unobtainable patient remains intubated and FiO2 100% he has had worsening renal function nephrology consulted for this. He was subsequently found to have a fever infectious diseases is following she initially related improvement. Acute kidney injury, subsequent worsening in the setting of elevated vancomycin levels Patient seen remains on 50% Ventimask Unable to assess urine output however has been voiding repeatedly with improving numbers Has lower extremity edema Currently off hemodialysis Objective - Vital Signs Vital signs: Vital Signs - 12hr 06/13/19 06/14/19 06/14/19 23:54 00:00 00:15 Temperature 99.6 F Pulse Rate 93 H 86 Pulse Rate [ 93 H From Monitor] Respiratory 25 H 17 Rate Blood Pressure 120/70 118/47 O2 Sat by Pulse 98 93 Oximetry 06/14/19 06/14/19 06/14/19 00:31 00:45 01:01 Temperature Pulse Rate 91 H 85 94 H Pulse Rate [ From Monitor] Respiratory 18 20 26 H Rate Blood Pressure 106/69 106/69 124/28 O2 Sat by Pulse 92 97 97 Oximetry 06/14/19 06/14/19 06/14/19 01:15 01:30 01:45 Temperature Pulse Rate 92 H 97 H 95 H Pulse Rate [ From Monitor] Respiratory 25 H 20 20 Rate Blood Pressure 124/28 121/53 127/55 O2 Sat by Pulse 98 98 99 Oximetry 06/14/19 06/14/19 06/14/19 02:01 02:15 02:30 Temperature Pulse Rate 96 H 99 H 94 H Pulse Rate [ From Monitor] Respiratory 23 28 H 23 Rate Blood Pressure 128/48 125/59 126/59 O2 Sat by Pulse 96 97 98 Oximetry 06/14/19 06/14/19 06/14/19 02:45 03:00 03:02 Temperature 99.1 F Pulse Rate 89 88 Pulse Rate [ From Monitor] Respiratory 22 17 Rate Blood Pressure 134/61 117/43 O2 Sat by Pulse 95 90 Oximetry 06/14/19 06/14/19 06/14/19 03:15 03:30 03:45 Temperature Pulse Rate 88 88 91 H Pulse Rate [ From Monitor] Respiratory 17 8 L 11 L Rate Blood Pressure 126/49 145/59 122/49 O2 Sat by Pulse 91 97 96 Oximetry 06/14/19 06/14/19 06/14/19 04:00 04:15 04:31 Temperature Pulse Rate 99 H 99 H Pulse Rate [ 99 H From Monitor] Respiratory 26 H 22 24 Rate Blood Pressure 127/39 132/44 132/44 O2 Sat by Pulse 97 98 99 Oximetry 06/14/19 06/14/19 06/14/19 04:45 05:00 05:06 Temperature Pulse Rate 96 H 100 H 99 H Pulse Rate [ From Monitor] Respiratory 25 H 28 H 24 Rate Blood Pressure 134/59 134/59 116/56 O2 Sat by Pulse 95 97 96 Oximetry 06/14/19 06/14/19 06/14/19 05:15 05:30 05:45 Temperature Pulse Rate 99 H 98 H 101 H Pulse Rate [ From Monitor] Respiratory 25 H 26 H 16 Rate Blood Pressure 135/77 125/66 125/66 O2 Sat by Pulse 97 96 96 Oximetry 06/14/19 06/14/19 06/14/19 06:01 06:06 06:15 Temperature Pulse Rate 91 H 91 H 88 Pulse Rate [ From Monitor] Respiratory 15 20 Rate Blood Pressure 157/84 157/84 156/86 O2 Sat by Pulse 97 92 Oximetry 01/06/14/19 06/14/19 06:31 06:45 07:00 Temperature Pulse Rate 94 H 88 87 Pulse Rate [ From Monitor] Respiratory 16 19 19 Rate Blood Pressure 152/84 145/63 165/86 O2 Sat by Pulse 98 95 97 Oximetry 06/14/19 06/14/19 06/14/19 07:15 07:30 07:45 Temperature Pulse Rate 105 H 85 97 H Pulse Rate [ From Monitor] Respiratory 14 15 16 Rate Blood Pressure 165/86 137/57 137/57 O2 Sat by Pulse 95 96 98 Oximetry 06/14/19 06/14/19 06/14/19 08:00 08:15 08:30 Temperature 98.2 F Pulse Rate 91 H 95 H 85 Pulse Rate [ 92 H From Monitor] Respiratory 30 H 19 12 Rate Blood Pressure 164/77 137/57 168/76 O2 Sat by Pulse 97 99 99 Oximetry 06/14/19 06/14/19 06/14/19 08:45 09:00 09:15 Temperature Pulse Rate 91 H 99 H 97 H Pulse Rate [ From Monitor] Respiratory 18 16 17 Rate Blood Pressure 152/82 146/59 133/68 O2 Sat by Pulse 99 98 98 Oximetry 06/14/19 06/14/19 06/14/19 09:31 09:45 10:00 Temperature Pulse Rate 98 H 100 H 99 H Pulse Rate [ From Monitor] Respiratory 12 27 H 29 H Rate Blood Pressure 125/66 117/59 132/60 O2 Sat by Pulse 100 98 98 Oximetry 06/14/19 06/14/19 06/14/19 10:15 10:30 10:45 Temperature Pulse Rate 101 H 99 H 99 H Pulse Rate [ From Monitor] Respiratory 19 17 22 Rate Blood Pressure 131/53 138/54 124/66 O2 Sat by Pulse 98 98 97 Oximetry 06/14/19 06/14/19 06/14/19 11:00 11:15 11:30 Temperature Pulse Rate 105 H 103 H 99 H Pulse Rate [ From Monitor] Respiratory 18 23 26 H Rate Blood Pressure 114/78 114/78 135/62 O2 Sat by Pulse 86 96 99 Oximetry - General Appearance General appearance: obese, anxious EENT: ATNC, PERRL Neck: no JVD Respiratory: Present: Decreased Breath Sounds Cardiology: regular, S1S2 Gastrointestinal: normal, normoactive bowel sounds Integumentary: no rash Neurologic: CN 3-12 intact Psychiatric: depressed - Lab 06/12/19 03:21 06/14/19 04:50 Most recent lab results ABG pH 7.480 pH Units (7.350-7.450) H 06/07/19 04:30 ABG pCO2 37.4 mm Hg 06/07/19 04:30 ABG pO2 77.0 mm Hg (80.0-90.0) L 06/07/19 04:30 ABG HCO3 27.2 mmol/L (20.0-26.0) H 06/07/19 04:30 ABG O2 Saturation 96.7 % (95.0-99.0) 06/07/19 04:30 Calcium 8.6 mg/dL (8.4-10.2) 06/14/19 04:50 Phosphorus 3.70 mg/dL (2.5-4.5) 06/10/19 05:45 Magnesium 1.40 mg/dL (1.7-2.3) L 06/12/19 03:21 Urine Creatinine 292.8 mg/dL (0.1-20.0) H 05/07/19 22:40 Urine Sodium 11 mmol/L 05/07/19 22:40 Urine Total Protein 269 mg/dL (5-11.8) H 05/07/19 22:40 - Imaging Chest x-ray: image reviewed (eviewed chest x-raywith haziness noted) Medications & Allergies - Medications Allergies/Adverse Reactions: Allergies No Known Allergies Allergy (Verified 05/01/19 20:27) Home Medications: Home Medications Medication Instructions Recorded Confirmed Last Taken Type No Known Home Medications [No 05/03/19 05/03/19 Unknown History Reported Home Medications] Active Medications: Generic Name Dose Route Start Last Admin Trade Name Freq PRN Reason Stop Dose Admin Albumin Human 25 gm 05/19/19 10:47 Alburx 25% (Albumin) IV ARIANE PRN Hypotension Lipase/Protease/Amylase 1 each 05/14/19 15:01 Pancreaze 10,500 Unit FEEDTUBE PRN PRN For Clogged Feeding Tube Clonidine HCl 0.3 mg 06/06/19 20:00 06/13/19 20:28 Catapres-Tts Patch TD 0.3 mg Lao VICKEY Administration Dextrose 50 gm 05/01/19 20:24 D50w (25gm) Vial IV Q30MIN PRN Hypoglycemia Protocol Enoxaparin Sodium 30 mg 05/16/19 10:00 06/14/19 10:27 Enoxaparin SUB-Q 30 mg QDAY VICKEY Administration Famotidine 20 mg 05/16/19 10:00 06/14/19 10:26 Pepcid PO 20 mg DAILY VICKEY Administration Hydrochlorothiazide 50 mg 06/12/19 12:00 06/14/19 10:26 Hctz PO 50 mg QDAY VICKEY Administration Levetiracetam 750 mg/ Dextrose 107.5 mls @ 400 mls/hr 06/09/19 22:00 06/14/19 10:26 IV 400 mls/hr Q12HR VICKEY Administration Dextrose 1,000 mls @ 75 mls/hr 06/10/19 08:00 06/14/19 01:44 D5w IV 125 mls/hr DIRECT VICKEY Administration Nicardipine HCl 50 mg/ Sodium 250 mls @ 25 mls/hr 06/12/19 07:00 06/13/19 18:00 Chloride IV 0 mg/hr TITR VICKEY 0 mls/hr Titration Protocol 5 MG/HR Insulin Glargine 30 units 06/14/19 22:00 Lantus SUB-Q QHS VICKEY Insulin Human Lispro 0 unit 06/01/19 14:00 06/14/19 05:48 Humalog SUB-Q 4 unit Q6HR VICKEY Administration Protocol Labetalol HCl 10 mg 06/11/19 22:48 06/12/19 01:20 Labetalol IV 10 mg Q4H PRN Administration BP >170/105; hold for HR <60 Labetalol HCl 200 mg 06/13/19 11:36 06/14/19 06:06 Labetalol PO 200 mg Q8HR VICKEY Administration Methylprednisolone Sodium Succinate 40 mg 06/10/19 14:00 06/14/19 05:48 Solu-Medrol IV 40 mg Q8HR VICKEY Administration Minoxidil 2.5 mg 06/06/19 22:00 06/14/19 10:26 Loniten PO 2.5 mg BID VICKEY Administration Simple Syrup 15 ml 05/14/19 15:01 Simple Syrup FEEDTUBE PRN PRN Hypoglycemia Simple Syrup 30 ml 05/14/19 15:01 Simple Syrup FEEDTUBE PRN PRN Hypoglycemia Sodium Bicarbonate 325 mg 05/14/19 15:01 Sodium Bicarbonate FEEDTUBE PRN PRN For Clogged Feeding Tube
--- NOTE | 2019-06-14 17:13 | Progress Note ---
Assessment and Plan Imp: 1. Acute respiratory failure, hypoxia 2. A/C respiratory failure, hypercapnea 3. LANODN/OHS/Morbid obesity 4. CARLA 5. Pulm HTN 6. Sepsis -> ? Pneumonia, ? Meningitis 7. Seizures Rec: 1. Avoid sedating meds 2. HOB elevated if possible 3. Lasix prn; control BP with PO meds 4. Repeat CXR in AM 5. Chest PT/NT suctioning 6. Cont. TFs; mentation and breathing need to improve before taking PO 7. Increase Lovenox to 40mg daily dose 8. Decrease Solumedrol to 20mg IV [id number] No family present; prognosis remains guarded Subjective Date of service: 06/14/19 Principal diagnosis: HF; acute hypoxemic resp failure, SIRS, CARLA Interval history: BP better. Somnolent, arousable, moans and nods to questions but cannot give history. On VM. Active Medications Albumin Human (Alburx 25% (Albumin)) 25 gm IV ARIANE PRN PRN Reason: Hypotension Lipase/Protease/Amylase (Pancre[address]ie Dr 10,500 Unit) 1 each FEEDTUBE PRN PRN PRN Reason: For Clogged Feeding Tube Clonidine HCl (Catapres-Tts Patch) 0.3 mg TD Lao [facility] Last Admin: 06/13/19 20:28 Dose: 0.3 mg Documented by: Dextrose (D50w (25gm) Vial) 50 gm IV Q30MIN PRN; Protocol PRN Reason: Hypoglycemia Enoxaparin Sodium (Enoxaparin) 40 mg SUB-Q QDAY [facility] Famotidine (Pepcid) 20 mg PO DAILY [facility] Last Admin: 06/14/19 10:26 Dose: 20 mg Documented by: Hydrochlorothiazide (Hctz) 50 mg PO QDAY [facility] Last Admin: 06/14/19 10:26 Dose: 50 mg Documented by: Levetiracetam 750 mg/ Dextrose 107.5 mls @ 400 mls/hr IV Q12HR [facility] Last Admin: 06/14/19 10:26 Dose: 400 mls/hr Documented by: Dextrose (D5w) 1,000 mls @ 75 mls/hr IV DIRECT [facility] Last Admin: 06/14/19 01:44 Dose: 125 mls/hr Documented by: Nicardipine HCl 50 mg/ Sodium (Chloride) 250 mls @ 25 mls/hr IV TITR [facility]; Protocol Last Titration: 06/13/19 18:00 Dose: 0 mg/hr, 0 mls/hr Documented by: Insulin Glargine (Lantus) 30 units SUB-Q QHS [facility] Insulin Human Lispro (Humalog) 0 unit SUB-Q Q6HR [facility]; Protocol Last Admin: 06/14/19 12:00 Dose: Not Given Documented by: Labetalol HCl (Labetalol) 10 mg IV Q4H PRN PRN Reason: BP >170/105; hold for HR <60 Last Admin: 06/12/19 01:20 Dose: 10 mg Documented by: Labetalol HCl (Labetalol) 200 mg PO Q8HR [facility] Last Admin: 06/14/19 13:38 Dose: 200 mg Documented by: Methylprednisolone Sodium Succinate (Solu-Medrol) 20 mg IV Q8HR [facility] Minoxidil (Loniten) 2.5 mg PO BID [facility] Last Admin: 06/14/19 10:26 Dose: 2.5 mg Documented by: Simple Syrup (Simple Syrup) 15 ml FEEDTUBE PRN PRN PRN Reason: Hypoglycemia Simple Syrup (Simple Syrup) 30 ml FEEDTUBE PRN PRN PRN Reason: Hypoglycemia Sodium Bicarbonate (Sodium Bicarbonate) 325 mg FEEDTUBE PRN PRN PRN Reason: For Clogged Feeding Tube Objective Vital Signs - 12hr 06/14/19 06/14/19 06/14/19 05:15 05:30 05:45 Temperature Pulse Rate 99 H 98 H 101 H Pulse Rate [ From Monitor] Respiratory 25 H 26 H 16 Rate Blood Pressure 135/77 125/66 125/66 O2 Sat by Pulse 97 96 96 Oximetry 06/14/19 06/14/19 06/14/19 06:01 06:06 06:15 Temperature Pulse Rate 91 H 91 H 88 Pulse Rate [ From Monitor] Respiratory 15 20 Rate Blood Pressure 157/84 157/84 156/86 O2 Sat by Pulse 97 92 Oximetry 06/14/19 06/14/19 06/14/19 06:31 06:45 07:00 Temperature Pulse Rate 94 H 88 87 Pulse Rate [ From Monitor] Respiratory 16 19 19 Rate Blood Pressure 152/84 145/63 165/86 O2 Sat by Pulse 98 95 97 Oximetry 06/14/19 06/14/1920 07:15 07:30 07:45 Temperature Pulse Rate 105 H 85 97 H Pulse Rate [ From Monitor] Respiratory 14 15 16 Rate Blood Pressure 165/86 137/57 137/57 O2 Sat by Pulse 95 96 98 Oximetry 06/14/19 06/14/19 06/14/19 08:00 08:15 08:30 Temperature 98.2 F Pulse Rate 91 H 95 H 85 Pulse Rate [ 92 H From Monitor] Respiratory 30 H 19 12 Rate Blood Pressure 164/77 137/57 168/76 O2 Sat by Pulse 97 99 99 Oximetry 06/14/19 06/14/19 06/14/19 08:45 09:00 09:15 Temperature Pulse Rate 91 H 99 H 97 H Pulse Rate [ From Monitor] Respiratory 18 16 17 Rate Blood Pressure 152/82 146/59 133/68 O2 Sat by Pulse 99 98 98 Oximetry 06/14/19 06/14/19 06/14/19 09:31 09:45 10:00 Temperature Pulse Rate 98 H 100 H 99 H Pulse Rate [ From Monitor] Respiratory 12 27 H 29 H Rate Blood Pressure 125/66 117/59 132/60 O2 Sat by Pulse 100 98 98 Oximetry 06/14/19 06/14/19 06/14/19 10:15 10:30 10:45 Temperature Pulse Rate 101 H 99 H 99 H Pulse Rate [ From Monitor] Respiratory 19 17 22 Rate Blood Pressure 131/53 138/54 124/66 O2 Sat by Pulse 98 98 97 Oximetry 06/14/19 06/14/19 06/14/19 11:00 11:15 11:30 Temperature Pulse Rate 105 H 103 H 99 H Pulse Rate [ From Monitor] Respiratory 18 23 26 H Rate Blood Pressure 114/78 114/78 135/62 O2 Sat by Pulse 86 96 99 Oximetry 06/14/19 06/14/19 06/14/19 11:45 12:00 12:15 Temperature 98.0 F Pulse Rate 103 H 97 H 100 H Pulse Rate [ From Monitor] Respiratory 13 24 20 Rate Blood Pressure 146/79 159/52 140/73 O2 Sat by Pulse 100 95 97 Oximetry 06/14/19 06/14/19 06/14/19 12:31 12:45 13:00 Temperature Pulse Rate 105 H 102 H 103 H Pulse Rate [ From Monitor] Respiratory 28 H 26 H 23 Rate Blood Pressure 140/73 140/73 171/51 O2 Sat by Pulse 96 98 98 Oximetry 06/14/19 06/14/19 06/14/19 13:15 13:31 13:38 Temperature Pulse Rate 100 H 101 H 97 H Pulse Rate [ From Monitor] Respiratory 20 27 H Rate Blood Pressure 171/51 171/51 171/51 O2 Sat by Pulse 99 98 Oximetry 06/14/19 06/14/19 06/14/19 13:45 14:00 14:15 Temperature Pulse Rate 97 H 94 H 93 H Pulse Rate [ From Monitor] Respiratory 22 23 21 Rate Blood Pressure 171/51 125/59 171/51 O2 Sat by Pulse 98 94 98 Oximetry 06/14/19 06/14/19 06/14/19 14:31 14:45 15:00 Temperature Pulse Rate 93 H 93 H 90 Pulse Rate [ From Monitor] Respiratory 28 H 29 H 21 Rate Blood Pressure 171/51 125/59 118/57 O2 Sat by Pulse 96 94 98 Oximetry 06/14/19 06/14/19 06/14/19 15:15 15:31 15:45 Temperature Pulse Rate 95 H 95 H 96 H Pulse Rate [ From Monitor] Respiratory 21 41 H 26 H Rate Blood Pressure 118/57 118/57 118/57 O2 Sat by Pulse 98 98 99 Oximetry 06/14/19 16:00 Temperature Pulse Rate 96 H Pulse Rate [ From Monitor] Respiratory 22 Rate Blood Pressure 109/60 O2 Sat by Pulse 99 Oximetry Constitutional: no acute distress, other (morbidly obese male, extubated) Eyes: non-icteric ENT: oropharynx moist Neck: other (extremely large in circumference) Effort: mildly labored Ascultation: Bilateral: rhonchi Cardiovascular: regular rate and rhythm (no mrg) Gastrointestinal: normoactive bowel sounds, soft, non-tender, other (obese) Extremities: no cyanosis, pink and warm, other (1+ generalized edema) Neurologic: normal mental status, non-focal exam Psychiatric: mood appropriate, affect normal CBC and BMP: 06/12/19 03:21 06/14/19 04:50 ABG, PT/INR, D-dimer: ABG POC ABG pH 7.462 (7.35-7.45) H 06/05/19 03:52 ABG pH 7.480 pH Units (7.350-7.450) H 06/07/19 04:30 POC ABG pCO2 39.8 (35-45) 06/05/19 03:52 ABG pCO2 37.4 mm Hg 06/07/19 04:30 POC ABG pO2 86 (80-105) 06/05/19 03:52 ABG pO2 77.0 mm Hg (80.0-90.0) L 06/07/19 04:30 POC ABG HCO3 28.4 (22-26 mml/L) 06/05/19 03:52 POC ABG Total CO2 30 (23-27mmol/L) 06/05/19 03:52 POC ABG O2 Sat 97 06/05/19 03:52 ABG O2 Saturation 96.7 % (95.0-99.0) 06/07/19 04:30 PT/INR, D-dimer PT 15.4 Sec. (12.2-14.9) H 05/01/19 Unknown INR 1.23 (0.87-1.13) H 05/01/19 Unknown Abnormal lab findings: Abnormal Labs 05/01/19 05/01/19 05/01/19 17:50 19:26 22:36 WBC RBC Hgb Hct MCV MCH MCHC RDW Lymph % (Auto) [place] % (Auto) Eos % (Auto) Lymph # [place] # Eos # Seg Neutrophils % Seg Neuts % (Manual) Lymphocytes % (Manual) Monocytes % (Manual) Eosinophils % (Manual) Nucleated RBC % Seg Neutrophils # Seg Neutrophils # Man Lymphocytes # (Manual) Monocytes # (Manual) Eosinophils # (Manual) PT INR APTT POC ABG pH 7.272 L 7.331 L ABG pH POC ABG pCO2 52.8 H POC ABG pO2 ABG pO2 ABG HCO3 ABG O2 Saturation ABG Base Excess ABG Hemoglobin Oxyhemoglobin Sodium 136 L Potassium 6.5 H* Chloride 97.2 L Carbon Dioxide BUN 60 H Creatinine Glucose 113 H POC Glucose Uric Acid Calcium Phosphorus Magnesium 2.40 H AST 139 H ALT 154 H Total Creatine Kinase CK-MB (CK-2) Troponin T NT-Pro-B Natriuret Pep Total Protein Albumin 3.8 L Triglycerides HDL Cholesterol Urine WBC (Auto) Urine Creatinine Urine Total Protein Vancomycin Trough 05/01/19 05/01/19 05/01/19 Unknown Unknown Unknown WBC 16.1 H RBC Hgb Hct MCV MCH MCHC RDW 17.2 H Lymph % (Auto) [place] % (Auto) 9.6 H Eos % (Auto) Lymph # [place] # 1.5 H Eos # Seg Neutrophils % 73.0 H Seg Neuts % (Manual) Lymphocytes % (Manual) Monocytes % (Manual) Eosinophils % (Manual) Nucleated RBC % Seg Neutrophils # 11.7 H Seg Neutrophils # Man Lymphocytes # (Manual) Monocytes # (Manual) Eosinophils # (Manual) PT 15.4 H INR 1.23 H APTT 22.7 L POC ABG pH ABG pH POC ABG pCO2 POC ABG pO2 ABG pO2 ABG HCO3 ABG O2 Saturation ABG Base Excess ABG Hemoglobin Oxyhemoglobin Sodium Potassium Chloride Carbon Dioxide BUN Creatinine Glucose POC Glucose Uric Acid Calcium Phosphorus Magnesium AST ALT Total Creatine Kinase CK-MB (CK-2) Troponin T NT-Pro-B Natriuret Pep 6831 H Total Protein Albumin Triglycerides HDL Cholesterol Urine WBC (Auto) Urine Creatinine Urine Total Protein Vancomycin Trough 05/01/19 05/02/19 05/02/19 Unknown 00:06 00:06 WBC RBC Hgb Hct MCV MCH MCHC RDW Lymph % (Auto) [place] % (Auto) Eos % (Auto) Lymph # [place] # Eos # Seg Neutrophils % Seg Neuts % (Manual) Lymphocytes % (Manual) Monocytes % (Manual) Eosinophils % (Manual) Nucleated RBC % Seg Neutrophils # Seg Neutrophils # Man Lymphocytes # (Manual) Monocytes # (Manual) Eosinophils # (Manual) PT INR APTT POC ABG pH ABG pH POC ABG pCO2 POC ABG pO2 ABG pO2 ABG HCO3 ABG O2 Saturation ABG Base Excess ABG Hemoglobin Oxyhemoglobin Sodium Potassium Chloride Carbon Dioxide BUN Creatinine Glucose POC Glucose Uric Acid Calcium Phosphorus 4.90 H Magnesium AST ALT Total Creatine Kinase 226 H CK-MB (CK-2) 5.7 H Troponin T 0.044 H NT-Pro-B Natriuret Pep Total Protein Albumin Triglycerides 182 H HDL Cholesterol 18 L Urine WBC (Auto) Urine Creatinine Urine Total Protein Vancomycin Trough 05/02/19 05/02/19 05/02/19 02:08 04:40 04:41 WBC 17.6 H RBC Hgb Hct MCV MCH 27 L MCHC RDW 17.4 H Lymph % (Auto) 10.2 L [place] % (Auto) 11.0 H Eos % (Auto) Lymph # [place] # 1.9 H Eos # Seg Neutrophils % 78.0 H Seg Neuts % (Manual) Lymphocytes % (Manual) Monocytes % (Manual) Eosinophils % (Manual) Nucleated RBC % Seg Neutrophils # 13.8 H Seg Neutrophils # Man Lymphocytes # (Manual) Monocytes # (Manual) Eosinophils # (Manual) PT INR APTT POC ABG pH ABG pH POC ABG pCO2 46.8 H POC ABG pO2 63 L ABG pO2 ABG HCO3 ABG O2 Saturation ABG Base Excess ABG Hemoglobin Oxyhemoglobin Sodium Potassium Chloride 96.3 L Carbon Dioxide BUN 63 H Creatinine 1.7 H Glucose POC Glucose Uric Acid Calcium Phosphorus Magnesium AST ALT Total Creatine Kinase CK-MB (CK-2) Troponin T NT-Pro-B Natriuret Pep Total Protein Albumin Triglycerides HDL Cholesterol Urine WBC (Auto) Urine Creatinine Urine Total Protein Vancomycin Trough 05/02/19 05/02/19 05/02/19 04:41 04:41 16:05 WBC RBC Hgb Hct MCV MCH MCHC RDW Lymph % (Auto) [place] % (Auto) Eos % (Auto) Lymph # [place] # Eos # Seg Neutrophils % Seg Neuts % (Manual) Lymphocytes % (Manual) Monocytes % (Manual) Eosinophils % (Manual) Nucleated RBC % Seg Neutrophils # Seg Neutrophils # Man Lymphocytes # (Manual) Monocytes # (Manual) Eosinophils # (Manual) PT INR APTT POC ABG pH ABG pH POC ABG pCO2 POC ABG pO2 ABG pO2 66.6 L ABG HCO3 31.9 H ABG O2 Saturation 92.5 L ABG Base Excess 5.8 H ABG Hemoglobin 13.3 L Oxyhemoglobin 90.6 L Sodium Potassium Chloride 97.2 L Carbon Dioxide BUN 61 H Creatinine 1.8 H Glucose POC Glucose Uric Acid Calcium Phosphorus Magnesium AST ALT Total Creatine Kinase CK-MB (CK-2) 5.2 H Troponin T 0.067 H D NT-Pro-B Natriuret Pep Total Protein Albumin Triglycerides HDL Cholesterol Urine WBC (Auto) Urine Creatinine Urine Total Protein Vancomycin Trough 05/02/19 05/03/19 05/03/19 20:39 04:35 05:05 WBC 11.8 H RBC Hgb Hct MCV MCH 27 L MCHC 31 L RDW 17.2 H Lymph % (Auto) [place] % (Auto) Eos % (Auto) Lymph # [place] # Eos # Seg Neutrophils % Seg Neuts % (Manual) Lymphocytes % (Manual) Monocytes % (Manual) Eosinophils % (Manual) Nucleated RBC % Seg Neutrophils # Seg Neutrophils # Man Lymphocytes # (Manual) Monocytes # (Manual) Eosinophils # (Manual) PT INR APTT POC ABG pH ABG pH POC ABG pCO2 53.6 H 54.0 H POC ABG pO2 55 L 63 L ABG pO2 ABG HCO3 ABG O2 Saturation ABG Base Excess ABG Hemoglobin Oxyhemoglobin Sodium Potassium Chloride Carbon Dioxide BUN Creatinine Glucose POC Glucose Uric Acid Calcium Phosphorus Magnesium AST ALT Total Creatine Kinase CK-MB (CK-2) Troponin T NT-Pro-B Natriuret Pep Total Protein Albumin Triglycerides HDL Cholesterol Urine WBC (Auto) Urine Creatinine Urine Total Protein Vancomycin Trough 05/03/19 05/03/19 05/03/19 05:05 10:55 16:48 WBC RBC Hgb Hct MCV MCH MCHC RDW Lymph % (Auto) [place] % (Auto) Eos % (Auto) Lymph # [place] # Eos # Seg Neutrophils % Seg Neuts % (Manual) Lymphocytes % (Manual) Monocytes % (Manual) Eosinophils % (Manual) Nucleated RBC % Seg Neutrophils # Seg Neutrophils # Man Lymphocytes # (Manual) Monocytes # (Manual) Eosinophils # (Manual) PT INR APTT POC ABG pH 7.604 H ABG pH POC ABG pCO2 POC ABG pO2 58 L ABG pO2 ABG HCO3 ABG O2 Saturation ABG Base Excess ABG Hemoglobin Oxyhemoglobin Sodium Potassium Chloride Carbon Dioxide BUN 52 H Creatinine 1.9 H Glucose 103 H POC Glucose Uric Acid Calcium Phosphorus Magnesium AST ALT Total Creatine Kinase CK-MB (CK-2) Troponin T NT-Pro-B Natriuret Pep Total Protein Albumin Triglycerides HDL Cholesterol Urine WBC (Auto) 33.0 H Urine Creatinine Urine Total Protein Vancomycin Trough 05/04/19 05/04/19 05/04/19 04:49 06:50 06:50 WBC 16.0 H RBC Hgb Hct MCV MCH 27 L MCHC 31 L RDW 17.8 H Lymph % (Auto) [place] % (Auto) Eos % (Auto) Lymph # [place] # Eos # Seg Neutrophils % Seg Neuts % (Manual) Lymphocytes % (Manual) Monocytes % (Manual) Eosinophils % (Manual) Nucleated RBC % Seg Neutrophils # Seg Neutrophils # Man Lymphocytes # (Manual) Monocytes # (Manual) Eosinophils # (Manual) PT INR APTT POC ABG pH 7.273 L ABG pH POC ABG pCO2 POC ABG pO2 ABG pO2 ABG HCO3 ABG O2 Saturation ABG Base Excess ABG Hemoglobin Oxyhemoglobin Sodium 148 H Potassium 5.5 H Chloride Carbon Dioxide BUN 53 H Creatinine 3.3 H D Glucose 106 H POC Glucose Uric Acid Calcium 8.3 L Phosphorus Magnesium AST ALT Total Creatine Kinase CK-MB (CK-2) Troponin T NT-Pro-B Natriuret Pep Total Protein Albumin Triglycerides HDL Cholesterol Urine WBC (Auto) Urine Creatinine Urine Total Protein Vancomycin Trough 05/05/19 05/05/19 05/05/19 00:05 04:30 05:00 WBC RBC Hgb Hct MCV MCH MCHC RDW Lymph % (Auto) [place] % (Auto) Eos % (Auto) Lymph # [place] # Eos # Seg Neutrophils % Seg Neuts % (Manual) Lymphocytes % (Manual) Monocytes % (Manual) Eosinophils % (Manual) Nucleated RBC % Seg Neutrophils # Seg Neutrophils # Man Lymphocytes # (Manual) Monocytes # (Manual) Eosinophils # (Manual) PT INR APTT POC ABG pH 7.225 L ABG pH POC ABG pCO2 > 70 H POC ABG pO2 ABG pO2 ABG HCO3 ABG O2 Saturation ABG Base Excess ABG Hemoglobin Oxyhemoglobin Sodium 151 H Potassium 5.1 H Chloride Carbon Dioxide BUN 64 H Creatinine 3.5 H Glucose 117 H POC Glucose 141 H Uric Acid Calcium 7.5 L Phosphorus Magnesium AST 93 H ALT 65 H Total Creatine Kinase CK-MB (CK-2) Troponin T NT-Pro-B Natriuret Pep Total Protein Albumin 2.9 L Triglycerides HDL Cholesterol Urine WBC (Auto) Urine Creatinine Urine Total Protein Vancomycin Trough 05/05/19 05/05/19 05/05/19 05:00 12:02 17:46 WBC 12.0 H RBC Hgb 11.3 L Hct MCV MCH 27 L MCHC 30 L RDW 18.4 H Lymph % (Auto) 7.9 L [place] % (Auto) 10.2 H Eos % (Auto) Lymph # 1.0 L [place] # 1.2 H Eos # Seg Neutrophils % 80.8 H Seg Neuts % (Manual) Lymphocytes % (Manual) Monocytes % (Manual) Eosinophils % (Manual) Nucleated RBC % Seg Neutrophils # 9.7 H Seg Neutrophils # Man Lymphocytes # (Manual) Monocytes # (Manual) Eosinophils # (Manual) PT INR APTT POC ABG pH ABG pH POC ABG pCO2 POC ABG pO2 ABG pO2 ABG HCO3 ABG O2 Saturation ABG Base Excess ABG Hemoglobin Oxyhemoglobin Sodium Potassium Chloride Carbon Dioxide BUN Creatinine Glucose POC Glucose 125 H 112 H Uric Acid Calcium Phosphorus Magnesium AST ALT Total Creatine Kinase CK-MB (CK-2) Troponin T NT-Pro-B Natriuret Pep Total Protein Albumin Triglycerides HDL Cholesterol Urine WBC (Auto) Urine Creatinine Urine Total Protein Vancomycin Trough 05/05/19 05/06/19 05/06/19 23:42 03:58 04:45 WBC 11.4 H RBC Hgb 10.7 L Hct 34.2 L MCV MCH 27 L MCHC 31 L RDW 16.9 H Lymph % (Auto) [place] % (Auto) Eos % (Auto) Lymph # [place] # Eos # Seg Neutrophils % Seg Neuts % (Manual) Lymphocytes % (Manual) Monocytes % (Manual) Eosinophils % (Manual) Nucleated RBC % Seg Neutrophils # Seg Neutrophils # Man Lymphocytes # (Manual) Monocytes # (Manual) Eosinophils # (Manual) PT INR APTT POC ABG pH ABG pH POC ABG pCO2 62.4 H POC ABG pO2 111 H ABG pO2 ABG HCO3 ABG O2 Saturation ABG Base Excess ABG Hemoglobin Oxyhemoglobin Sodium Potassium Chloride Carbon Dioxide BUN Creatinine Glucose POC Glucose 128 H Uric Acid Calcium Phosphorus Magnesium AST ALT Total Creatine Kinase CK-MB (CK-2) Troponin T NT-Pro-B Natriuret Pep Total Protein Albumin Triglycerides HDL Cholesterol Urine WBC (Auto) Urine Creatinine Urine Total Protein Vancomycin Trough 05/06/19 05/06/19 05/06/19 04:45 05:33 12:30 WBC RBC Hgb Hct MCV MCH MCHC RDW Lymph % (Auto) [place] % (Auto) Eos % (Auto) Lymph # [place] # Eos # Seg Neutrophils % Seg Neuts % (Manual) Lymphocytes % (Manual) Monocytes % (Manual) Eosinophils % (Manual) Nucleated RBC % Seg Neutrophils # Seg Neutrophils # Man Lymphocytes # (Manual) Monocytes # (Manual) Eosinophils # (Manual) PT INR APTT POC ABG pH ABG pH POC ABG pCO2 POC ABG pO2 ABG pO2 ABG HCO3 ABG O2 Saturation ABG Base Excess ABG Hemoglobin Oxyhemoglobin Sodium 149 H Potassium Chloride Carbon Dioxide 31 H BUN 67 H Creatinine 3.2 H Glucose 125 H POC Glucose 117 H 116 H Uric Acid Calcium 7.5 L Phosphorus Magnesium AST ALT Total Creatine Kinase CK-MB (CK-2) Troponin T NT-Pro-B Natriuret Pep Total Protein Albumin Triglycerides HDL Cholesterol Urine WBC (Auto) Urine Creatinine Urine Total Protein Vancomycin Trough 05/06/19 05/06/19 05/07/19 18:34 23:16 05:22 WBC RBC Hgb Hct MCV MCH MCHC RDW Lymph % (Auto) [place] % (Auto) Eos % (Auto) Lymph # [place] # Eos # Seg Neutrophils % Seg Neuts % (Manual) Lymphocytes % (Manual) Monocytes % (Manual) Eosinophils % (Manual) Nucleated RBC % Seg Neutrophils # Seg Neutrophils # Man Lymphocytes # (Manual) Monocytes # (Manual) Eosinophils # (Manual) PT INR APTT POC ABG pH ABG pH POC ABG pCO2 POC ABG pO2 ABG pO2 ABG HCO3 ABG O2 Saturation ABG Base Excess ABG Hemoglobin Oxyhemoglobin Sodium Potassium Chloride Carbon Dioxide BUN Creatinine Glucose POC Glucose 128 H 143 H 166 H Uric Acid Calcium Phosphorus Magnesium AST ALT Total Creatine Kinase CK-MB (CK-2) Troponin T NT-Pro-B Natriuret Pep Total Protein Albumin Triglycerides HDL Cholesterol Urine WBC (Auto) Urine Creatinine Urine Total Protein Vancomycin Trough 05/07/19 05/07/19 05/07/19 06:33 07:03 09:35 WBC RBC Hgb Hct MCV MCH MCHC RDW Lymph % (Auto) [place] % (Auto) Eos % (Auto) Lymph # [place] # Eos # Seg Neutrophils % Seg Neuts % (Manual) Lymphocytes % (Manual) Monocytes % (Manual) Eosinophils % (Manual) Nucleated RBC % Seg Neutrophils # Seg Neutrophils # Man Lymphocytes # (Manual) Monocytes # (Manual) Eosinophils # (Manual) PT INR APTT POC ABG pH 7.263 L 7.288 L ABG pH POC ABG pCO2 POC ABG pO2 51 L 56 L ABG pO2 ABG HCO3 ABG O2 Saturation ABG Base Excess ABG Hemoglobin Oxyhemoglobin Sodium Potassium Chloride Carbon Dioxide BUN 76 H Creatinine 3.2 H Glucose 147 H POC Glucose Uric Acid Calcium 7.9 L Phosphorus Magnesium AST ALT Total Creatine Kinase CK-MB (CK-2) Troponin T NT-Pro-B Natriuret Pep Total Protein Albumin Triglycerides HDL Cholesterol Urine WBC (Auto) Urine Creatinine Urine Total Protein Vancomycin Trough 05/07/19 05/07/19 05/07/19 09:35 12:17 13:45 WBC 13.4 H RBC Hgb 11.6 L Hct MCV MCH 27 L MCHC 31 L RDW 17.5 H Lymph % (Auto) [place] % (Auto) Eos % (Auto) Lymph # [place] # Eos # Seg Neutrophils % Seg Neuts % (Manual) Lymphocytes % (Manual) Monocytes % (Manual) Eosinophils % (Manual) Nucleated RBC % Seg Neutrophils # Seg Neutrophils # Man Lymphocytes # (Manual) Monocytes # (Manual) Eosinophils # (Manual) PT INR APTT POC ABG pH ABG pH POC ABG pCO2 POC ABG pO2 ABG pO2 ABG HCO3 ABG O2 Saturation ABG Base Excess ABG Hemoglobin Oxyhemoglobin Sodium Potassium Chloride Carbon Dioxide BUN Creatinine Glucose POC Glucose 130 H Uric Acid 18.0 H Calcium Phosphorus Magnesium AST ALT Total Creatine Kinase CK-MB (CK-2) Troponin T NT-Pro-B Natriuret Pep Total Protein Albumin Triglycerides HDL Cholesterol Urine WBC (Auto) Urine Creatinine Urine Total Protein Vancomycin Trough 05/07/19 05/07/19 05/08/19 17:39 22:40 05:06 WBC RBC Hgb Hct MCV MCH MCHC RDW Lymph % (Auto) [place] % (Auto) Eos % (Auto) Lymph # [place] # Eos # Seg Neutrophils % Seg Neuts % (Manual) Lymphocytes % (Manual) Monocytes % (Manual) Eosinophils % (Manual) Nucleated RBC % Seg Neutrophils # Seg Neutrophils # Man Lymphocytes # (Manual) Monocytes # (Manual) Eosinophils # (Manual) PT INR APTT POC ABG pH ABG pH POC ABG pCO2 POC ABG pO2 ABG pO2 ABG HCO3 ABG O2 Saturation ABG Base Excess ABG Hemoglobin Oxyhemoglobin Sodium Potassium Chloride Carbon Dioxide BUN Creatinine Glucose POC Glucose 116 H 148 H Uric Acid Calcium Phosphorus Magnesium AST ALT Total Creatine Kinase CK-MB (CK-2) Troponin T NT-Pro-B Natriuret Pep Total Protein Albumin Triglycerides HDL Cholesterol Urine WBC (Auto) Urine Creatinine 292.8 H Urine Total Protein 269 H Vancomycin Trough 05/08/19 05/08/19 05/08/19 05:32 11:28 13:48 WBC RBC Hgb Hct MCV MCH MCHC RDW Lymph % (Auto) [place] % (Auto) Eos % (Auto) Lymph # [place] # Eos # Seg Neutrophils % Seg Neuts % (Manual) Lymphocytes % (Manual) Monocytes % (Manual) Eosinophils % (Manual) Nucleated RBC % Seg Neutrophils # Seg Neutrophils # Man Lymphocytes # (Manual) Monocytes # (Manual) Eosinophils # (Manual) PT INR APTT POC ABG pH ABG pH POC ABG pCO2 45.4 H POC ABG pO2 64 L ABG pO2 ABG HCO3 ABG O2 Saturation ABG Base Excess ABG Hemoglobin Oxyhemoglobin Sodium Potassium Chloride Carbon Dioxide BUN 73 H Creatinine 2.7 H Glucose 127 H POC Glucose 107 H Uric Acid Calcium 7.6 L Phosphorus Magnesium AST ALT Total Creatine Kinase CK-MB (CK-2) Troponin T NT-Pro-B Natriuret Pep Total Protein Albumin Triglycerides HDL Cholesterol Urine WBC (Auto) Urine Creatinine Urine Total Protein Vancomycin Trough 05/08/19 05/09/19 05/09/19 17:48 04:50 04:53 WBC RBC 3.07 L Hgb 8.5 L D Hct 29.3 L D MCV 96 H MCH MCHC 29 L RDW 18.1 H Lymph % (Auto) [place] % (Auto) Eos % (Auto) Lymph # [place] # Eos # Seg Neutrophils % Seg Neuts % (Manual) Lymphocytes % (Manual) Monocytes % (Manual) Eosinophils % (Manual) Nucleated RBC % Seg Neutrophils # Seg Neutrophils # Man Lymphocytes # (Manual) Monocytes # (Manual) Eosinophils # (Manual) PT INR APTT POC ABG pH 7.316 L ABG pH POC ABG pCO2 66.0 H POC ABG pO2 69 L ABG pO2 ABG HCO3 ABG O2 Saturation ABG Base Excess ABG Hemoglobin Oxyhemoglobin Sodium Potassium Chloride Carbon Dioxide BUN Creatinine Glucose POC Glucose 155 H Uric Acid Calcium Phosphorus Magnesium AST ALT Total Creatine Kinase CK-MB (CK-2) Troponin T NT-Pro-B Natriuret Pep Total Protein Albumin Triglycerides HDL Cholesterol Urine WBC (Auto) Urine Creatinine Urine Total Protein Vancomycin Trough 05/09/19 05/09/19 05/09/19 05:46 07:24 12:10 WBC RBC Hgb Hct MCV MCH MCHC RDW Lymph % (Auto) [place] % (Auto) Eos % (Auto) Lymph # [place] # Eos # Seg Neutrophils % Seg Neuts % (Manual) Lymphocytes % (Manual) Monocytes % (Manual) Eosinophils % (Manual) Nucleated RBC % Seg Neutrophils # Seg Neutrophils # Man Lymphocytes # (Manual) Monocytes # (Manual) Eosinophils # (Manual) PT INR APTT POC ABG pH ABG pH POC ABG pCO2 POC ABG pO2 ABG pO2 ABG HCO3 ABG O2 Saturation ABG Base Excess ABG Hemoglobin Oxyhemoglobin Sodium Potassium Chloride Carbon Dioxide BUN 73 H Creatinine 2.4 H Glucose 153 H POC Glucose 123 H 148 H Uric Acid Calcium 8.2 L Phosphorus Magnesium AST 45 H ALT Total Creatine Kinase CK-MB (CK-2) Troponin T NT-Pro-B Natriuret Pep Total Protein 6.0 L Albumin 1.9 L Triglycerides HDL Cholesterol Urine WBC (Auto) Urine Creatinine Urine Total Protein Vancomycin Trough 05/09/19 05/09/19 05/10/19 18:23 23:26 04:52 WBC RBC Hgb Hct MCV MCH MCHC RDW Lymph % (Auto) [place] % (Auto) Eos % (Auto) Lymph # [place] # Eos # Seg Neutrophils % Seg Neuts % (Manual) Lymphocytes % (Manual) Monocytes % (Manual) Eosinophils % (Manual) Nucleated RBC % Seg Neutrophils # Seg Neutrophils # Man Lymphocytes # (Manual) Monocytes # (Manual) Eosinophils # (Manual) PT INR APTT POC ABG pH 7.305 L ABG pH POC ABG pCO2 62.6 H POC ABG pO2 ABG pO2 ABG HCO3 ABG O2 Saturation ABG Base Excess ABG Hemoglobin Oxyhemoglobin Sodium Potassium Chloride Carbon Dioxide BUN Creatinine Glucose POC Glucose 147 H 121 H Uric Acid Calcium Phosphorus Magnesium AST ALT Total Creatine Kinase CK-MB (CK-2) Troponin T NT-Pro-B Natriuret Pep Total Protein Albumin Triglycerides HDL Cholesterol Urine WBC (Auto) Urine Creatinine Urine Total Protein Vancomycin Trough 05/10/19 05/10/19 05/10/19 05:00 05:00 05:50 WBC RBC Hgb 10.3 L Hct 33.7 L MCV MCH 27 L MCHC 31 L RDW 17.0 H Lymph % (Auto) [place] % (Auto) Eos % (Auto) Lymph # [place] # Eos # Seg Neutrophils % Seg Neuts % (Manual) Lymphocytes % (Manual) Monocytes % (Manual) Eosinophils % (Manual) Nucleated RBC % Seg Neutrophils # Seg Neutrophils # Man Lymphocytes # (Manual) Monocytes # (Manual) Eosinophils # (Manual) PT INR APTT POC ABG pH ABG pH POC ABG pCO2 POC ABG pO2 ABG pO2 ABG HCO3 ABG O2 Saturation ABG Base Excess ABG Hemoglobin Oxyhemoglobin Sodium 147 H Potassium Chloride Carbon Dioxide BUN 70 H Creatinine 2.6 H Glucose 155 H POC Glucose 158 H Uric Acid Calcium 8.2 L Phosphorus Magnesium AST ALT Total Creatine Kinase CK-MB (CK-2) Troponin T NT-Pro-B Natriuret Pep Total Protein 6.1 L Albumin 2.5 L Triglycerides HDL Cholesterol Urine WBC (Auto) Urine Creatinine Urine Total Protein Vancomycin Trough 05/10/19 05/11/19 05/11/19 13:14 07:26 11:40 WBC RBC Hgb Hct MCV MCH MCHC RDW Lymph % (Auto) [place] % (Auto) Eos % (Auto) Lymph # [place] # Eos # Seg Neutrophils % Seg Neuts % (Manual) Lymphocytes % (Manual) Monocytes % (Manual) Eosinophils % (Manual) Nucleated RBC % Seg Neutrophils # Seg Neutrophils # Man Lymphocytes # (Manual) Monocytes # (Manual) Eosinophils # (Manual) PT INR APTT POC ABG pH ABG pH POC ABG pCO2 48.0 H POC ABG pO2 58 L ABG pO2 ABG HCO3 ABG O2 Saturation ABG Base Excess ABG Hemoglobin Oxyhemoglobin Sodium 147 H Potassium Chloride 107.2 H Carbon Dioxide BUN 67 H Creatinine 2.6 H Glucose 121 H POC Glucose 159 H Uric Acid Calcium Phosphorus Magnesium AST ALT Total Creatine Kinase CK-MB (CK-2) Troponin T NT-Pro-B Natriuret Pep Total Protein Albumin Triglycerides HDL Cholesterol Urine WBC (Auto) Urine Creatinine Urine Total Protein Vancomycin Trough 05/11/19 05/11/19 05/12/19 18:13 23:46 04:40 WBC RBC Hgb Hct MCV MCH MCHC RDW Lymph % (Auto) [place] % (Auto) Eos % (Auto) Lymph # [place] # Eos # Seg Neutrophils % Seg Neuts % (Manual) Lymphocytes % (Manual) Monocytes % (Manual) Eosinophils % (Manual) Nucleated RBC % Seg Neutrophils # Seg Neutrophils # Man Lymphocytes # (Manual) Monocytes # (Manual) Eosinophils # (Manual) PT INR APTT POC ABG pH ABG pH 7.264 L POC ABG pCO2 POC ABG pO2 ABG pO2 66.8 L ABG HCO3 31.0 H ABG O2 Saturation 92.0 L ABG Base Excess ABG Hemoglobin 10.3 L Oxyhemoglobin 90.1 L Sodium Potassium Chloride Carbon Dioxide BUN Creatinine Glucose POC Glucose 120 H 121 H Uric Acid Calcium Phosphorus Magnesium AST ALT Total Creatine Kinase CK-MB (CK-2) Troponin T NT-Pro-B Natriuret Pep Total Protein Albumin Triglycerides HDL Cholesterol Urine WBC (Auto) Urine Creatinine Urine Total Protein Vancomycin Trough 05/12/19 05/12/19 05/12/19 04:45 04:45 11:14 WBC RBC Hgb 10.2 L Hct 32.4 L MCV MCH MCHC 31 L RDW 17.2 H Lymph % (Auto) [place] % (Auto) Eos % (Auto) Lymph # [place] # Eos # Seg Neutrophils % Seg Neuts % (Manual) Lymphocytes % (Manual) Monocytes % (Manual) Eosinophils % (Manual) Nucleated RBC % Seg Neutrophils # Seg Neutrophils # Man Lymphocytes # (Manual) Monocytes # (Manual) Eosinophils # (Manual) PT INR APTT POC ABG pH 7.284 L ABG pH POC ABG pCO2 67.8 H POC ABG pO2 ABG pO2 ABG HCO3 ABG O2 Saturation ABG Base Excess ABG Hemoglobin Oxyhemoglobin Sodium Potassium Chloride Carbon Dioxide BUN 63 H Creatinine 2.4 H Glucose 110 H POC Glucose Uric Acid Calcium Phosphorus Magnesium AST ALT Total Creatine Kinase CK-MB (CK-2) Troponin T NT-Pro-B Natriuret Pep Total Protein Albumin Triglycerides HDL Cholesterol Urine WBC (Auto) Urine Creatinine Urine Total Protein Vancomycin Trough 05/12/19 05/12/19 05/13/19 11:44 23:11 04:30 WBC RBC Hgb Hct MCV MCH MCHC RDW Lymph % (Auto) [place] % (Auto) Eos % (Auto) Lymph # [place] # Eos # Seg Neutrophils % Seg Neuts % (Manual) Lymphocytes % (Manual) Monocytes % (Manual) Eosinophils % (Manual) Nucleated RBC % Seg Neutrophils # Seg Neutrophils # Man Lymphocytes # (Manual) Monocytes # (Manual) Eosinophils # (Manual) PT INR APTT POC ABG pH ABG pH 7.288 L POC ABG pCO2 POC ABG pO2 ABG pO2 109.7 H ABG HCO3 30.9 H ABG O2 Saturation ABG Base Excess 3.2 H ABG Hemoglobin 9.6 L Oxyhemoglobin Sodium Potassium Chloride Carbon Dioxide BUN Creatinine Glucose POC Glucose 126 H 147 H Uric Acid Calcium Phosphorus Magnesium AST ALT Total Creatine Kinase CK-MB (CK-2) Troponin T NT-Pro-B Natriuret Pep Total Protein Albumin Triglycerides HDL Cholesterol Urine WBC (Auto) Urine Creatinine Urine Total Protein Vancomycin Trough 05/13/19 05/13/19 05/14/19 06:27 11:58 04:00 WBC RBC 3.16 L Hgb 9.3 L Hct 27.9 L MCV MCH MCHC RDW 17.1 H Lymph % (Auto) [place] % (Auto) Eos % (Auto) Lymph # [place] # Eos # Seg Neutrophils % Seg Neuts % (Manual) Lymphocytes % (Manual) Monocytes % (Manual) Eosinophils % (Manual) Nucleated RBC % Seg Neutrophils # Seg Neutrophils # Man Lymphocytes # (Manual) Monocytes # (Manual) Eosinophils # (Manual) PT INR APTT POC ABG pH ABG pH POC ABG pCO2 POC ABG pO2 ABG pO2 ABG HCO3 ABG O2 Saturation ABG Base Excess ABG Hemoglobin Oxyhemoglobin Sodium Potassium Chloride Carbon Dioxide BUN Creatinine Glucose POC Glucose 113 H 130 H Uric Acid Calcium Phosphorus Magnesium AST ALT Total Creatine Kinase CK-MB (CK-2) Troponin T NT-Pro-B Natriuret Pep Total Protein Albumin Triglycerides HDL Cholesterol Urine WBC (Auto) Urine Creatinine Urine Total Protein Vancomycin Trough 05/14/19 05/14/19 05/14/19 04:00 04:34 05:32 WBC RBC Hgb Hct MCV MCH MCHC RDW Lymph % (Auto) [place] % (Auto) Eos % (Auto) Lymph # [place] # Eos # Seg Neutrophils % Seg Neuts % (Manual) Lymphocytes % (Manual) Monocytes % (Manual) Eosinophils % (Manual) Nucleated RBC % Seg Neutrophils # Seg Neutrophils # Man Lymphocytes # (Manual) Monocytes # (Manual) Eosinophils # (Manual) PT INR APTT POC ABG pH 7.328 L ABG pH POC ABG pCO2 61.7 H POC ABG pO2 ABG pO2 ABG HCO3 ABG O2 Saturation ABG Base Excess ABG Hemoglobin Oxyhemoglobin Sodium 135 L D Potassium Chloride Carbon Dioxide BUN 57 H Creatinine 2.2 H Glucose 115 H POC Glucose 115 H Uric Acid Calcium 8.1 L Phosphorus Magnesium AST ALT Total Creatine Kinase CK-MB (CK-2) Troponin T NT-Pro-B Natriuret Pep Total Protein Albumin Triglycerides HDL Cholesterol Urine WBC (Auto) Urine Creatinine Urine Total Protein Vancomycin Trough 05/14/19 05/15/19 05/15/19 12:11 05:10 05:24 WBC RBC Hgb Hct MCV MCH MCHC RDW Lymph % (Auto) [place] % (Auto) Eos % (Auto) Lymph # [place] # Eos # Seg Neutrophils % Seg Neuts % (Manual) Lymphocytes % (Manual) Monocytes % (Manual) Eosinophils % (Manual) Nucleated RBC % Seg Neutrophils # Seg Neutrophils # Man Lymphocytes # (Manual) Monocytes # (Manual) Eosinophils # (Manual) PT INR APTT POC ABG pH ABG pH 7.342 L POC ABG pCO2 POC ABG pO2 ABG pO2 79.1 L ABG HCO3 28.2 H ABG O2 Saturation ABG Base Excess ABG Hemoglobin 7.0 L Oxyhemoglobin 94.4 L Sodium Potassium Chloride Carbon Dioxide BUN Creatinine Glucose POC Glucose 110 H 116 H Uric Acid Calcium Phosphorus Magnesium AST ALT Total Creatine Kinase CK-MB (CK-2) Troponin T NT-Pro-B Natriuret Pep Total Protein Albumin Triglycerides HDL Cholesterol Urine WBC (Auto) Urine Creatinine Urine Total Protein Vancomycin Trough 05/15/19 05/15/19 05/16/19 09:00 18:12 04:50 WBC RBC Hgb Hct MCV MCH MCHC RDW Lymph % (Auto) [place] % (Auto) Eos % (Auto) Lymph # [place] # Eos # Seg Neutrophils % Seg Neuts % (Manual) Lymphocytes % (Manual) Monocytes % (Manual) Eosinophils % (Manual) Nucleated RBC % Seg Neutrophils # Seg Neutrophils # Man Lymphocytes # (Manual) Monocytes # (Manual) Eosinophils # (Manual) PT INR APTT POC ABG pH ABG pH 7.250 L POC ABG pCO2 POC ABG pO2 ABG pO2 76.4 L ABG HCO3 ABG O2 Saturation 94.6 L ABG Base Excess -3.1 L ABG Hemoglobin 9.7 L Oxyhemoglobin 92.4 L Sodium Potassium Chloride Carbon Dioxide BUN Creatinine Glucose POC Glucose 110 H Uric Acid Calcium Phosphorus Magnesium AST ALT Total Creatine Kinase CK-MB (CK-2) Troponin T NT-Pro-B Natriuret Pep Total Protein Albumin Triglycerides HDL Cholesterol Urine WBC (Auto) Urine Creatinine Urine Total Protein Vancomycin Trough 20.5 H 05/16/19 05/16/19 05/17/19 05:50 05:50 04:20 WBC RBC 3.36 L 3.44 L Hgb 9.4 L 9.3 L Hct 29.1 L 29.7 L MCV MCH 27 L MCHC 31 L RDW 17.6 H 17.6 H Lymph % (Auto) [place] % (Auto) Eos % (Auto) Lymph # [place] # Eos # Seg Neutrophils % Seg Neuts % (Manual) 77.0 H Lymphocytes % (Manual) 5.0 L Monocytes % (Manual) Eosinophils % (Manual) 10.0 H Nucleated RBC % Seg Neutrophils # Seg Neutrophils # Man Lymphocytes # (Manual) 0.5 L Monocytes # (Manual) Eosinophils # (Manual) 0.9 H PT INR APTT POC ABG pH ABG pH POC ABG pCO2 POC ABG pO2 ABG pO2 ABG HCO3 ABG O2 Saturation ABG Base Excess ABG Hemoglobin Oxyhemoglobin Sodium Potassium Chloride Carbon Dioxide BUN 83 H Creatinine 4.4 H D Glucose 118 H POC Glucose Uric Acid Calcium Phosphorus Magnesium AST ALT Total Creatine Kinase CK-MB (CK-2) Troponin T NT-Pro-B Natriuret Pep Total Protein Albumin Triglycerides HDL Cholesterol Urine WBC (Auto) Urine Creatinine Urine Total Protein Vancomycin Trough 05/17/19 05/17/19 05/18/19 04:30 Unknown 01:50 WBC RBC 3.49 L Hgb 9.4 L Hct 30.0 L MCV MCH 27 L MCHC 31 L RDW 17.8 H Lymph % (Auto) 7.9 L [place] % (Auto) 15.4 H Eos % (Auto) 6.3 H Lymph # 0.7 L [place] # 1.4 H Eos # 0.6 H Seg Neutrophils % 70.2 H Seg Neuts % (Manual) Lymphocytes % (Manual) Monocytes % (Manual) Eosinophils % (Manual) Nucleated RBC % Seg Neutrophils # Seg Neutrophils # Man Lymphocytes # (Manual) Monocytes # (Manual) Eosinophils # (Manual) PT INR APTT POC ABG pH ABG pH 7.272 L POC ABG pCO2 POC ABG pO2 ABG pO2 75.7 L ABG HCO3 ABG O2 Saturation 93.8 L ABG Base Excess -3.0 L ABG Hemoglobin 7.8 L Oxyhemoglobin 91.6 L Sodium Potassium 5.2 H Chloride Carbon Dioxide BUN 96 H Creatinine 5.7 H Glucose 112 H POC Glucose Uric Acid Calcium Phosphorus Magnesium AST ALT Total Creatine Kinase CK-MB (CK-2) Troponin T NT-Pro-B Natriuret Pep Total Protein Albumin Triglycerides 173 H HDL Cholesterol Urine WBC (Auto) Urine Creatinine Urine Total Protein Vancomycin Trough 05/18/19 05/18/19 05/18/19 01:50 04:41 05:24 WBC RBC Hgb Hct MCV MCH MCHC RDW Lymph % (Auto) [place] % (Auto) Eos % (Auto) Lymph # [place] # Eos # Seg Neutrophils % Seg Neuts % (Manual) Lymphocytes % (Manual) Monocytes % (Manual) Eosinophils % (Manual) Nucleated RBC % Seg Neutrophils # Seg Neutrophils # Man Lymphocytes # (Manual) Monocytes # (Manual) Eosinophils # (Manual) PT INR APTT POC ABG pH 7.260 L ABG pH POC ABG pCO2 54.9 H POC ABG pO2 ABG pO2 ABG HCO3 ABG O2 Saturation ABG Base Excess ABG Hemoglobin Oxyhemoglobin Sodium Potassium 5.6 H Chloride Carbon Dioxide BUN 104 H Creatinine 6.6 H Glucose 107 H POC Glucose 106 H Uric Acid Calcium Phosphorus Magnesium AST ALT Total Creatine Kinase CK-MB (CK-2) Troponin T NT-Pro-B Natriuret Pep Total Protein Albumin Triglycerides HDL Cholesterol Urine WBC (Auto) Urine Creatinine Urine Total Protein Vancomycin Trough 05/18/19 05/18/19 05/19/19 11:34 23:26 04:06 WBC RBC 3.22 L Hgb 8.8 L Hct 27.3 L MCV MCH 27 L MCHC RDW 17.5 H Lymph % (Auto) [place] % (Auto) Eos % (Auto) Lymph # [place] # Eos # Seg Neutrophils % Seg Neuts % (Manual) 74.0 H Lymphocytes % (Manual) 4.0 L Monocytes % (Manual) 11.0 H Eosinophils % (Manual) 7.0 H Nucleated RBC % 1.0 H Seg Neutrophils # Seg Neutrophils # Man Lymphocytes # (Manual) 0.3 L Monocytes # (Manual) 0.9 H Eosinophils # (Manual) 0.6 H PT INR APTT POC ABG pH ABG pH POC ABG pCO2 POC ABG pO2 ABG pO2 ABG HCO3 ABG O2 Saturation ABG Base Excess ABG Hemoglobin Oxyhemoglobin Sodium Potassium Chloride Carbon Dioxide BUN Creatinine Glucose POC Glucose 152 H 112 H Uric Acid Calcium Phosphorus Magnesium AST ALT Total Creatine Kinase CK-MB (CK-2) Troponin T NT-Pro-B Natriuret Pep Total Protein Albumin Triglycerides HDL Cholesterol Urine WBC (Auto) Urine Creatinine Urine Total Protein Vancomycin Trough 05/19/19 05/19/19 05/20/19 04:06 06:00 04:00 WBC RBC 3.40 L Hgb 9.2 L Hct 28.6 L MCV MCH 27 L MCHC RDW 17.6 H Lymph % (Auto) [place] % (Auto) Eos % (Auto) Lymph # [place] # Eos # Seg Neutrophils % Seg Neuts % (Manual) Lymphocytes % (Manual) 11.0 L Monocytes % (Manual) Eosinophils % (Manual) 14.0 H Nucleated RBC % Seg Neutrophils # Seg Neutrophils # Man Lymphocytes # (Manual) 1.1 L Monocytes # (Manual) Eosinophils # (Manual) 1.4 H PT INR APTT POC ABG pH ABG pH 7.315 L POC ABG pCO2 POC ABG pO2 ABG pO2 ABG HCO3 ABG O2 Saturation ABG Base Excess ABG Hemoglobin 6.7 L Oxyhemoglobin 94.1 L Sodium Potassium 5.2 H Chloride Carbon Dioxide 21 L BUN 110 H Creatinine 7.2 H Glucose POC Glucose Uric Acid Calcium 8.3 L Phosphorus Magnesium AST ALT Total Creatine Kinase CK-MB (CK-2) Troponin T NT-Pro-B Natriuret Pep Total Protein Albumin Triglycerides HDL Cholesterol Urine WBC (Auto) Urine Creatinine Urine Total Protein Vancomycin Trough 05/20/19 05/20/19 05/20/19 04:00 05:48 12:00 WBC RBC Hgb Hct MCV MCH MCHC RDW Lymph % (Auto) [place] % (Auto) Eos % (Auto) Lymph # [place] # Eos # Seg Neutrophils % Seg Neuts % (Manual) Lymphocytes % (Manual) Monocytes % (Manual) Eosinophils % (Manual) Nucleated RBC % Seg Neutrophils # Seg Neutrophils # Man Lymphocytes # (Manual) Monocytes # (Manual) Eosinophils # (Manual) PT INR APTT POC ABG pH ABG pH 7.281 L POC ABG pCO2 POC ABG pO2 ABG pO2 78.7 L ABG HCO3 ABG O2 Saturation 94.5 L ABG Base Excess -3.0 L ABG Hemoglobin 9.9 L Oxyhemoglobin 92.5 L Sodium 136 L Potassium 5.7 H Chloride 96.3 L Carbon Dioxide BUN 125 H Creatinine 8.3 H Glucose 106 H POC Glucose Uric Acid Calcium Phosphorus Magnesium AST ALT Total Creatine Kinase CK-MB (CK-2) Troponin T NT-Pro-B Natriuret Pep Total Protein Albumin Triglycerides HDL Cholesterol Urine WBC (Auto) 26.0 H Urine Creatinine Urine Total Protein Vancomycin Trough 05/21/19 05/21/19 05/21/19 04:33 05:20 Unknown WBC RBC 3.38 L Hgb 9.1 L Hct 28.5 L MCV MCH 27 L MCHC RDW 17.4 H Lymph % (Auto) [place] % (Auto) Eos % (Auto) Lymph # [place] # Eos # Seg Neutrophils % Seg Neuts % (Manual) 71.0 H Lymphocytes % (Manual) 1.0 L Monocytes % (Manual) 11.0 H Eosinophils % (Manual) 6.0 H Nucleated RBC % Seg Neutrophils # Seg Neutrophils # Man Lymphocytes # (Manual) 0.1 L Monocytes # (Manual) 1.0 H Eosinophils # (Manual) 0.6 H PT INR APTT POC ABG pH 7.315 L ABG pH POC ABG pCO2 57.8 H POC ABG pO2 68 L ABG pO2 ABG HCO3 ABG O2 Saturation ABG Base Excess ABG Hemoglobin Oxyhemoglobin Sodium Potassium Chloride 96.3 L Carbon Dioxide BUN 102 H Creatinine 7.0 H Glucose 103 H POC Glucose Uric Acid Calcium Phosphorus Magnesium AST ALT Total Creatine Kinase CK-MB (CK-2) Troponin T NT-Pro-B Natriuret Pep Total Protein Albumin Triglycerides HDL Cholesterol Urine WBC (Auto) Urine Creatinine Urine Total Protein Vancomycin Trough 05/22/19 05/22/19 05/22/19 03:54 06:25 06:25 WBC RBC 3.22 L Hgb 8.6 L Hct 27.0 L MCV MCH 27 L MCHC RDW 17.5 H Lymph % (Auto) [place] % (Auto) 16.2 H Eos % (Auto) 10.8 H Lymph # [place] # 1.3 H Eos # 0.9 H Seg Neutrophils % Seg Neuts % (Manual) Lymphocytes % (Manual) 10.0 L Monocytes % (Manual) 13.0 H Eosinophils % (Manual) 8.0 H Nucleated RBC % Seg Neutrophils # Seg Neutrophils # Man Lymphocytes # (Manual) 0.9 L Monocytes # (Manual) 1.1 H Eosinophils # (Manual) 0.7 H PT INR APTT POC ABG pH 7.313 L ABG pH POC ABG pCO2 55.0 H POC ABG pO2 ABG pO2 ABG HCO3 ABG O2 Saturation ABG Base Excess ABG Hemoglobin Oxyhemoglobin Sodium 135 L Potassium Chloride 94.3 L Carbon Dioxide BUN 117 H Creatinine 7.8 H Glucose POC Glucose Uric Acid Calcium 8.2 L Phosphorus Magnesium AST ALT Total Creatine Kinase CK-MB (CK-2) Troponin T NT-Pro-B Natriuret Pep Total Protein Albumin Triglycerides HDL Cholesterol Urine WBC (Auto) Urine Creatinine Urine Total Protein Vancomycin Trough 05/23/19 05/24/19 05/24/19 05:21 05:00 05:00 WBC RBC 3.18 L Hgb 8.5 L Hct 26.7 L MCV MCH 27 L MCHC RDW 17.9 H Lymph % (Auto) [place] % (Auto) Eos % (Auto) Lymph # [place] # Eos # Seg Neutrophils % Seg Neuts % (Manual) Lymphocytes % (Manual) Monocytes % (Manual) Eosinophils % (Manual) Nucleated RBC % Seg Neutrophils # Seg Neutrophils # Man Lymphocytes # (Manual) Monocytes # (Manual) Eosinophils # (Manual) PT INR APTT POC ABG pH ABG pH POC ABG pCO2 49.7 H POC ABG pO2 73 L ABG pO2 ABG HCO3 ABG O2 Saturation ABG Base Excess ABG Hemoglobin Oxyhemoglobin Sodium Potassium Chloride 95.7 L Carbon Dioxide BUN 97 H Creatinine 6.5 H Glucose POC Glucose Uric Acid Calcium 8.0 L Phosphorus Magnesium AST ALT Total Creatine Kinase CK-MB (CK-2) Troponin T NT-Pro-B Natriuret Pep Total Protein Albumin Triglycerides HDL Cholesterol Urine WBC (Auto) Urine Creatinine Urine Total Protein Vancomycin Trough 05/24/19 05/25/19 05/25/19 06:17 04:22 15:45 WBC RBC 2.98 L Hgb 8.1 L Hct 24.9 L MCV MCH 27 L MCHC RDW 17.8 H Lymph % (Auto) [place] % (Auto) Eos % (Auto) Lymph # [place] # Eos # Seg Neutrophils % Seg Neuts % (Manual) Lymphocytes % (Manual) Monocytes % (Manual) Eosinophils % (Manual) Nucleated RBC % Seg Neutrophils # Seg Neutrophils # Man Lymphocytes # (Manual) Monocytes # (Manual) Eosinophils # (Manual) PT INR APTT POC ABG pH 7.330 L 7.313 L ABG pH POC ABG pCO2 52.5 H 51.1 H POC ABG pO2 77 L ABG pO2 ABG HCO3 ABG O2 Saturation ABG Base Excess ABG Hemoglobin Oxyhemoglobin Sodium Potassium Chloride Carbon Dioxide BUN Creatinine Glucose POC Glucose Uric Acid Calcium Phosphorus Magnesium AST ALT Total Creatine Kinase CK-MB (CK-2) Troponin T NT-Pro-B Natriuret Pep Total Protein Albumin Triglycerides HDL Cholesterol Urine WBC (Auto) Urine Creatinine Urine Total Protein Vancomycin Trough 05/25/19 05/26/19 05/26/19 15:45 04:13 05:00 WBC RBC 3.10 L Hgb 8.4 L Hct 26.0 L MCV MCH 27 L MCHC RDW 17.4 H Lymph % (Auto) [place] % (Auto) Eos % (Auto) Lymph # [place] # Eos # Seg Neutrophils % Seg Neuts % (Manual) Lymphocytes % (Manual) Monocytes % (Manual) Eosinophils % (Manual) Nucleated RBC % Seg Neutrophils # Seg Neutrophils # Man Lymphocytes # (Manual) Monocytes # (Manual) Eosinophils # (Manual) PT INR APTT POC ABG pH 7.295 L ABG pH POC ABG pCO2 56.5 H POC ABG pO2 63 L ABG pO2 ABG HCO3 ABG O2 Saturation ABG Base Excess ABG Hemoglobin Oxyhemoglobin Sodium 136 L Potassium Chloride 96.8 L Carbon Dioxide BUN 83 H Creatinine 5.9 H Glucose POC Glucose Uric Acid Calcium 7.6 L Phosphorus Magnesium AST ALT Total Creatine Kinase CK-MB (CK-2) Troponin T NT-Pro-B Natriuret Pep Total Protein Albumin Triglycerides HDL Cholesterol Urine WBC (Auto) Urine Creatinine Urine Total Protein Vancomycin Trough 05/26/19 05/27/19 05/28/19 05:00 04:48 04:47 WBC RBC Hgb Hct MCV MCH MCHC RDW Lymph % (Auto) [place] % (Auto) Eos % (Auto) Lymph # [place] # Eos # Seg Neutrophils % Seg Neuts % (Manual) Lymphocytes % (Manual) Monocytes % (Manual) Eosinophils % (Manual) Nucleated RBC % Seg Neutrophils # Seg Neutrophils # Man Lymphocytes # (Manual) Monocytes # (Manual) Eosinophils # (Manual) PT INR APTT POC ABG pH 7.323 L ABG pH 7.284 L POC ABG pCO2 56.2 H POC ABG pO2 ABG pO2 71.6 L ABG HCO3 ABG O2 Saturation 92.0 L ABG Base Excess ABG Hemoglobin 7.7 L Oxyhemoglobin 89.9 L Sodium 136 L Potassium Chloride 95.3 L Carbon Dioxide BUN 96 H Creatinine 6.5 H Glucose 108 H POC Glucose Uric Acid Calcium 7.6 L Phosphorus Magnesium AST ALT Total Creatine Kinase CK-MB (CK-2) Troponin T NT-Pro-B Natriuret Pep Total Protein Albumin Triglycerides HDL Cholesterol Urine WBC (Auto) Urine Creatinine Urine Total Protein Vancomycin Trough 05/28/19 05/29/19 05/29/19 12:30 12:47 23:44 WBC RBC Hgb Hct MCV MCH MCHC RDW Lymph % (Auto) [place] % (Auto) Eos % (Auto) Lymph # [place] # Eos # Seg Neutrophils % Seg Neuts % (Manual) Lymphocytes % (Manual) Monocytes % (Manual) Eosinophils % (Manual) Nucleated RBC % Seg Neutrophils # Seg Neutrophils # Man Lymphocytes # (Manual) Monocytes # (Manual) Eosinophils # (Manual) PT INR APTT POC ABG pH ABG pH POC ABG pCO2 POC ABG pO2 ABG pO2 ABG HCO3 ABG O2 Saturation ABG Base Excess ABG Hemoglobin Oxyhemoglobin Sodium 135 L Potassium Chloride 95.3 L Carbon Dioxide BUN 82 H Creatinine 6.0 H Glucose POC Glucose 136 H 159 H Uric Acid Calcium 7.5 L Phosphorus Magnesium AST ALT Total Creatine Kinase CK-MB (CK-2) Troponin T NT-Pro-B Natriuret Pep Total Protein Albumin Triglycerides HDL Cholesterol Urine WBC (Auto) Urine Creatinine Urine Total Protein Vancomycin Trough 05/30/19 05/30/19 05/30/19 04:30 05:38 12:00 WBC RBC 3.01 L Hgb 8.2 L Hct 25.3 L MCV MCH 27 L MCHC RDW 17.5 H Lymph % (Auto) [place] % (Auto) Eos % (Auto) Lymph # [place] # Eos # Seg Neutrophils % Seg Neuts % (Manual) 80.0 H Lymphocytes % (Manual) 10.0 L Monocytes % (Manual) Eosinophils % (Manual) Nucleated RBC % Seg Neutrophils # Seg Neutrophils # Man 8.0 H Lymphocytes # (Manual) 1.0 L Monocytes # (Manual) Eosinophils # (Manual) PT INR APTT POC ABG pH ABG pH POC ABG pCO2 POC ABG pO2 73 L ABG pO2 ABG HCO3 ABG O2 Saturation ABG Base Excess ABG Hemoglobin Oxyhemoglobin Sodium Potassium Chloride Carbon Dioxide BUN Creatinine Glucose POC Glucose 166 H Uric Acid Calcium Phosphorus Magnesium AST ALT Total Creatine Kinase CK-MB (CK-2) Troponin T NT-Pro-B Natriuret Pep Total Protein Albumin Triglycerides HDL Cholesterol Urine WBC (Auto) Urine Creatinine Urine Total Protein Vancomycin Trough 05/30/19 05/31/19 05/31/19 23:45 04:07 13:04 WBC 14.3 H RBC 2.88 L Hgb 7.7 L Hct 23.9 L MCV 83 L MCH 27 L MCHC RDW 17.8 H Lymph % (Auto) [place] % (Auto) Eos % (Auto) Lymph # [place] # Eos # Seg Neutrophils % Seg Neuts % (Manual) 83.0 H Lymphocytes % (Manual) 11.0 L Monocytes % (Manual) Eosinophils % (Manual) Nucleated RBC % Seg Neutrophils # Seg Neutrophils # Man 11.9 H Lymphocytes # (Manual) Monocytes # (Manual) 0.9 H Eosinophils # (Manual) PT INR APTT POC ABG pH ABG pH POC ABG pCO2 47.4 H POC ABG pO2 ABG pO2 ABG HCO3 ABG O2 Saturation ABG Base Excess ABG Hemoglobin Oxyhemoglobin Sodium Potassium Chloride Carbon Dioxide BUN Creatinine Glucose POC Glucose 209 H Uric Acid Calcium Phosphorus Magnesium AST ALT Total Creatine Kinase CK-MB (CK-2) Troponin T NT-Pro-B Natriuret Pep Total Protein Albumin Triglycerides HDL Cholesterol Urine WBC (Auto) Urine Creatinine Urine Total Protein Vancomycin Trough 05/31/19 05/31/19 06/01/19 13:04 16:42 00:15 WBC RBC Hgb Hct MCV MCH MCHC RDW Lymph % (Auto) [place] % (Auto) Eos % (Auto) Lymph # [place] # Eos # Seg Neutrophils % Seg Neuts % (Manual) Lymphocytes % (Manual) Monocytes % (Manual) Eosinophils % (Manual) Nucleated RBC % Seg Neutrophils # Seg Neutrophils # Man Lymphocytes # (Manual) Monocytes # (Manual) Eosinophils # (Manual) PT INR APTT POC ABG pH ABG pH POC ABG pCO2 POC ABG pO2 ABG pO2 ABG HCO3 ABG O2 Saturation ABG Base Excess ABG Hemoglobin Oxyhemoglobin Sodium 129 L Potassium Chloride 88.6 L Carbon Dioxide 19 L BUN 117 H Creatinine 6.7 H Glucose 205 H POC Glucose 228 H 223 H Uric Acid Calcium 7.4 L Phosphorus 7.40 H Magnesium AST 58 H ALT 149 H Total Creatine Kinase CK-MB (CK-2) Troponin T NT-Pro-B Natriuret Pep Total Protein 6.0 L Albumin 2.5 L Triglycerides HDL Cholesterol Urine WBC (Auto) Urine Creatinine Urine Total Protein Vancomycin Trough 06/01/19 06/01/19 06/01/19 04:33 05:27 12:31 WBC RBC Hgb Hct MCV MCH MCHC RDW Lymph % (Auto) [place] % (Auto) Eos % (Auto) Lymph # [place] # Eos # Seg Neutrophils % Seg Neuts % (Manual) Lymphocytes % (Manual) Monocytes % (Manual) Eosinophils % (Manual) Nucleated RBC % Seg Neutrophils # Seg Neutrophils # Man Lymphocytes # (Manual) Monocytes # (Manual) Eosinophils # (Manual) PT INR APTT POC ABG pH ABG pH POC ABG pCO2 POC ABG pO2 ABG pO2 56.9 L ABG HCO3 ABG O2 Saturation 85.9 L ABG Base Excess ABG Hemoglobin 8.1 L Oxyhemoglobin 83.6 L Sodium Potassium Chloride Carbon Dioxide BUN Creatinine Glucose POC Glucose 183 H 217 H Uric Acid Calcium Phosphorus Magnesium AST ALT Total Creatine Kinase CK-MB (CK-2) Troponin T NT-Pro-B Natriuret Pep Total Protein Albumin Triglycerides HDL Cholesterol Urine WBC (Auto) Urine Creatinine Urine Total Protein Vancomycin Trough 06/01/19 06/02/19 06/02/19 18:20 00:00 05:33 WBC RBC Hgb Hct MCV MCH MCHC RDW Lymph % (Auto) [place] % (Auto) Eos % (Auto) Lymph # [place] # Eos # Seg Neutrophils % Seg Neuts % (Manual) Lymphocytes % (Manual) Monocytes % (Manual) Eosinophils % (Manual) Nucleated RBC % Seg Neutrophils # Seg Neutrophils # Man Lymphocytes # (Manual) Monocytes # (Manual) Eosinophils # (Manual) PT INR APTT POC ABG pH ABG pH POC ABG pCO2 POC ABG pO2 ABG pO2 ABG HCO3 ABG O2 Saturation ABG Base Excess ABG Hemoglobin Oxyhemoglobin Sodium Potassium Chloride Carbon Dioxide BUN Creatinine Glucose POC Glucose 265 H 279 H 259 H Uric Acid Calcium Phosphorus Magnesium AST ALT Total Creatine Kinase CK-MB (CK-2) Troponin T NT-Pro-B Natriuret Pep Total Protein Albumin Triglycerides HDL Cholesterol Urine WBC (Auto) Urine Creatinine Urine Total Protein Vancomycin Trough 06/02/19 06/02/19 06/02/19 11:06 11:06 11:42 WBC 13.1 H RBC 2.92 L Hgb 7.9 L Hct 24.4 L MCV MCH 27 L MCHC RDW 17.4 H Lymph % (Auto) [place] % (Auto) Eos % (Auto) Lymph # [place] # Eos # Seg Neutrophils % Seg Neuts % (Manual) 78.0 H Lymphocytes % (Manual) 12.0 L Monocytes % (Manual) 10.0 H Eosinophils % (Manual) Nucleated RBC % Seg Neutrophils # Seg Neutrophils # Man 10.2 H Lymphocytes # (Manual) Monocytes # (Manual) 1.3 H Eosinophils # (Manual) PT INR APTT POC ABG pH ABG pH POC ABG pCO2 POC ABG pO2 ABG pO2 ABG HCO3 ABG O2 Saturation ABG Base Excess ABG Hemoglobin Oxyhemoglobin Sodium 135 L Potassium Chloride 94.7 L Carbon Dioxide 21 L BUN 107 H Creatinine 4.5 H Glucose 286 H POC Glucose 263 H Uric Acid Calcium 7.9 L Phosphorus 6.30 H Magnesium AST ALT 104 H Total Creatine Kinase CK-MB (CK-2) Troponin T NT-Pro-B Natriuret Pep Total Protein 6.0 L Albumin 2.7 L Triglycerides HDL Cholesterol Urine WBC (Auto) Urine Creatinine Urine Total Protein Vancomycin Trough 06/02/19 06/02/19 06/03/19 18:17 23:55 05:30 WBC RBC Hgb Hct MCV MCH MCHC RDW Lymph % (Auto) [place] % (Auto) Eos % (Auto) Lymph # [place] # Eos # Seg Neutrophils % Seg Neuts % (Manual) Lymphocytes % (Manual) Monocytes % (Manual) Eosinophils % (Manual) Nucleated RBC % Seg Neutrophils # Seg Neutrophils # Man Lymphocytes # (Manual) Monocytes # (Manual) Eosinophils # (Manual) PT INR APTT POC ABG pH ABG pH POC ABG pCO2 POC ABG pO2 ABG pO2 ABG HCO3 ABG O2 Saturation ABG Base Excess ABG Hemoglobin Oxyhemoglobin Sodium Potassium Chloride 95.1 L Carbon Dioxide 21 L BUN 119 H Creatinine 4.1 H Glucose 330 H POC Glucose 276 H 244 H Uric Acid Calcium 8.1 L Phosphorus Magnesium AST ALT 98 H Total Creatine Kinase CK-MB (CK-2) Troponin T NT-Pro-B Natriuret Pep Total Protein 5.8 L Albumin 2.8 L Triglycerides HDL Cholesterol Urine WBC (Auto) Urine Creatinine Urine Total Protein Vancomycin Trough 06/03/19 06/03/19 06/03/19 05:30 06:04 09:42 WBC 12.8 H RBC 3.01 L Hgb 8.2 L Hct 25.4 L MCV MCH 27 L MCHC RDW 17.5 H Lymph % (Auto) [place] % (Auto) Eos % (Auto) Lymph # [place] # Eos # Seg Neutrophils % Seg Neuts % (Manual) 78.0 H Lymphocytes % (Manual) 10.0 L Monocytes % (Manual) 12.0 H Eosinophils % (Manual) Nucleated RBC % Seg Neutrophils # Seg Neutrophils # Man 10.0 H Lymphocytes # (Manual) Monocytes # (Manual) 1.5 H Eosinophils # (Manual) PT INR APTT POC ABG pH ABG pH POC ABG pCO2 POC ABG pO2 ABG pO2 ABG HCO3 ABG O2 Saturation ABG Base Excess ABG Hemoglobin Oxyhemoglobin Sodium Potassium Chloride Carbon Dioxide BUN 106 H Creatinine Glucose POC Glucose 254 H Uric Acid Calcium Phosphorus Magnesium AST ALT Total Creatine Kinase CK-MB (CK-2) Troponin T NT-Pro-B Natriuret Pep Total Protein Albumin Triglycerides HDL Cholesterol Urine WBC (Auto) Urine Creatinine Urine Total Protein Vancomycin Trough 06/03/19 06/03/19 06/03/19 12:52 17:25 23:37 WBC RBC Hgb Hct MCV MCH MCHC RDW Lymph % (Auto) [place] % (Auto) Eos % (Auto) Lymph # [place] # Eos # Seg Neutrophils % Seg Neuts % (Manual) Lymphocytes % (Manual) Monocytes % (Manual) Eosinophils % (Manual) Nucleated RBC % Seg Neutrophils # Seg Neutrophils # Man Lymphocytes # (Manual) Monocytes # (Manual) Eosinophils # (Manual) PT INR APTT POC ABG pH ABG pH POC ABG pCO2 POC ABG pO2 ABG pO2 ABG HCO3 ABG O2 Saturation ABG Base Excess ABG Hemoglobin Oxyhemoglobin Sodium Potassium Chloride Carbon Dioxide BUN Creatinine Glucose POC Glucose 274 H 285 H 310 H Uric Acid Calcium Phosphorus Magnesium AST ALT Total Creatine Kinase CK-MB (CK-2) Troponin T NT-Pro-B Natriuret Pep Total Protein Albumin Triglycerides HDL Cholesterol Urine WBC (Auto) Urine Creatinine Urine Total Protein Vancomycin Trough 06/04/19 06/04/19 06/04/19 04:57 05:03 11:50 WBC RBC Hgb Hct MCV MCH MCHC RDW Lymph % (Auto) [place] % (Auto) Eos % (Auto) Lymph # [place] # Eos # Seg Neutrophils % Seg Neuts % (Manual) Lymphocytes % (Manual) Monocytes % (Manual) Eosinophils % (Manual) Nucleated RBC % Seg Neutrophils # Seg Neutrophils # Man Lymphocytes # (Manual) Monocytes # (Manual) Eosinophils # (Manual) PT INR APTT POC ABG pH 7.488 H ABG pH POC ABG pCO2 POC ABG pO2 ABG pO2 ABG HCO3 ABG O2 Saturation ABG Base Excess ABG Hemoglobin Oxyhemoglobin Sodium Potassium Chloride Carbon Dioxide BUN Creatinine Glucose POC Glucose 275 H 279 H Uric Acid Calcium Phosphorus Magnesium AST ALT Total Creatine Kinase CK-MB (CK-2) Troponin T NT-Pro-B Natriuret Pep Total Protein Albumin Triglycerides HDL Cholesterol Urine WBC (Auto) Urine Creatinine Urine Total Protein Vancomycin Trough 06/04/19 06/04/19 06/04/19 18:32 22:03 23:55 WBC RBC Hgb Hct MCV MCH MCHC RDW Lymph % (Auto) [place] % (Auto) Eos % (Auto) Lymph # [place] # Eos # Seg Neutrophils % Seg Neuts % (Manual) Lymphocytes % (Manual) Monocytes % (Manual) Eosinophils % (Manual) Nucleated RBC % Seg Neutrophils # Seg Neutrophils # Man Lymphocytes # (Manual) Monocytes # (Manual) Eosinophils # (Manual) PT INR APTT POC ABG pH ABG pH POC ABG pCO2 POC ABG pO2 ABG pO2 ABG HCO3 ABG O2 Saturation ABG Base Excess ABG Hemoglobin Oxyhemoglobin Sodium Potassium Chloride Carbon Dioxide BUN Creatinine Glucose POC Glucose 267 H 307 H 292 H Uric Acid Calcium Phosphorus Magnesium AST ALT Total Creatine Kinase CK-MB (CK-2) Troponin T NT-Pro-B Natriuret Pep Total Protein Albumin Triglycerides HDL Cholesterol Urine WBC (Auto) Urine Creatinine Urine Total Protein Vancomycin Trough 06/05/19 06/05/19 06/05/19 03:52 06:41 12:29 WBC RBC Hgb Hct MCV MCH MCHC RDW Lymph % (Auto) [place] % (Auto) Eos % (Auto) Lymph # [place] # Eos # Seg Neutrophils % Seg Neuts % (Manual) Lymphocytes % (Manual) Monocytes % (Manual) Eosinophils % (Manual) Nucleated RBC % Seg Neutrophils # Seg Neutrophils # Man Lymphocytes # (Manual) Monocytes # (Manual) Eosinophils # (Manual) PT INR APTT POC ABG pH 7.462 H ABG pH POC ABG pCO2 POC ABG pO2 ABG pO2 ABG HCO3 ABG O2 Saturation ABG Base Excess ABG Hemoglobin Oxyhemoglobin Sodium Potassium Chloride Carbon Dioxide BUN Creatinine Glucose POC Glucose 369 H 265 H Uric Acid Calcium Phosphorus Magnesium AST ALT Total Creatine Kinase CK-MB (CK-2) Troponin T NT-Pro-B Natriuret Pep Total Protein Albumin Triglycerides HDL Cholesterol Urine WBC (Auto) Urine Creatinine Urine Total Protein Vancomycin Trough 06/05/19 06/05/19 06/05/19 18:20 21:42 23:21 WBC RBC Hgb Hct MCV MCH MCHC RDW Lymph % (Auto) [place] % (Auto) Eos % (Auto) Lymph # [place] # Eos # Seg Neutrophils % Seg Neuts % (Manual) Lymphocytes % (Manual) Monocytes % (Manual) Eosinophils % (Manual) Nucleated RBC % Seg Neutrophils # Seg Neutrophils # Man Lymphocytes # (Manual) Monocytes # (Manual) Eosinophils # (Manual) PT INR APTT POC ABG pH ABG pH POC ABG pCO2 POC ABG pO2 ABG pO2 ABG HCO3 ABG O2 Saturation ABG Base Excess ABG Hemoglobin Oxyhemoglobin Sodium Potassium Chloride Carbon Dioxide BUN Creatinine Glucose POC Glucose 249 H 246 H 274 H Uric Acid Calcium Phosphorus Magnesium AST ALT Total Creatine Kinase CK-MB (CK-2) Troponin T NT-Pro-B Natriuret Pep Total Protein Albumin Triglycerides HDL Cholesterol Urine WBC (Auto) Urine Creatinine Urine Total Protein Vancomycin Trough 06/06/19 06/06/19 06/06/19 04:00 05:49 11:34 WBC 18.1 H RBC 3.53 L Hgb 9.5 L Hct 30.3 L MCV MCH 27 L MCHC 31 L RDW 19.5 H Lymph % (Auto) [place] % (Auto) Eos % (Auto) Lymph # [place] # Eos # Seg Neutrophils % Seg Neuts % (Manual) 87.0 H Lymphocytes % (Manual) 3.0 L Monocytes % (Manual) 8.0 H Eosinophils % (Manual) Nucleated RBC % Seg Neutrophils # Seg Neutrophils # Man 15.7 H Lymphocytes # (Manual) 0.5 L Monocytes # (Manual) 1.4 H Eosinophils # (Manual) PT INR APTT POC ABG pH ABG pH 7.472 H POC ABG pCO2 POC ABG pO2 ABG pO2 76.4 L ABG HCO3 28.1 H ABG O2 Saturation ABG Base Excess 4.3 H ABG Hemoglobin 12.5 L Oxyhemoglobin 93.8 L Sodium Potassium Chloride Carbon Dioxide BUN Creatinine Glucose POC Glucose 340 H Uric Acid Calcium Phosphorus Magnesium AST ALT Total Creatine Kinase CK-MB (CK-2) Troponin T NT-Pro-B Natriuret Pep Total Protein Albumin Triglycerides HDL Cholesterol Urine WBC (Auto) Urine Creatinine Urine Total Protein Vancomycin Trough 06/06/19 06/06/19 06/06/19 11:34 12:11 18:10 WBC RBC Hgb Hct MCV MCH MCHC RDW Lymph % (Auto) [place] % (Auto) Eos % (Auto) Lymph # [place] # Eos # Seg Neutrophils % Seg Neuts % (Manual) Lymphocytes % (Manual) Monocytes % (Manual) Eosinophils % (Manual) Nucleated RBC % Seg Neutrophils # Seg Neutrophils # Man Lymphocytes # (Manual) Monocytes # (Manual) Eosinophils # (Manual) PT INR APTT POC ABG pH ABG pH POC ABG pCO2 POC ABG pO2 ABG pO2 ABG HCO3 ABG O2 Saturation ABG Base Excess ABG Hemoglobin Oxyhemoglobin Sodium Potassium Chloride Carbon Dioxide BUN 70 H Creatinine Glucose 310 H POC Glucose 283 H 301 H Uric Acid Calcium 8.3 L Phosphorus 4.60 H Magnesium AST ALT 75 H Total Creatine Kinase CK-MB (CK-2) Troponin T NT-Pro-B Natriuret Pep Total Protein 5.6 L Albumin 2.9 L Triglycerides HDL Cholesterol Urine WBC (Auto) Urine Creatinine Urine Total Protein Vancomycin Trough 06/06/19 06/06/19 06/07/19 22:21 23:16 04:30 WBC RBC Hgb Hct MCV MCH MCHC RDW Lymph % (Auto) [place] % (Auto) Eos % (Auto) Lymph # [place] # Eos # Seg Neutrophils % Seg Neuts % (Manual) Lymphocytes % (Manual) Monocytes % (Manual) Eosinophils % (Manual) Nucleated RBC % Seg Neutrophils # Seg Neutrophils # Man Lymphocytes # (Manual) Monocytes # (Manual) Eosinophils # (Manual) PT INR APTT POC ABG pH ABG pH 7.480 H POC ABG pCO2 POC ABG pO2 ABG pO2 77.0 L ABG HCO3 27.2 H ABG O2 Saturation ABG Base Excess 3.5 H ABG Hemoglobin 7.1 L Oxyhemoglobin 94.2 L Sodium Potassium Chloride Carbon Dioxide BUN Creatinine Glucose POC Glucose 289 H 343 H Uric Acid Calcium Phosphorus Magnesium AST ALT Total Creatine Kinase CK-MB (CK-2) Troponin T NT-Pro-B Natriuret Pep Total Protein Albumin Triglycerides HDL Cholesterol Urine WBC (Auto) Urine Creatinine Urine Total Protein Vancomycin Trough 06/07/19 06/07/19 06/07/19 05:15 12:52 18:41 WBC RBC Hgb Hct MCV MCH MCHC RDW Lymph % (Auto) [place] % (Auto) Eos % (Auto) Lymph # [place] # Eos # Seg Neutrophils % Seg Neuts % (Manual) Lymphocytes % (Manual) Monocytes % (Manual) Eosinophils % (Manual) Nucleated RBC % Seg Neutrophils # Seg Neutrophils # Man Lymphocytes # (Manual) Monocytes # (Manual) Eosinophils # (Manual) PT INR APTT POC ABG pH ABG pH POC ABG pCO2 POC ABG pO2 ABG pO2 ABG HCO3 ABG O2 Saturation ABG Base Excess ABG Hemoglobin Oxyhemoglobin Sodium Potassium Chloride Carbon Dioxide BUN Creatinine Glucose POC Glucose 307 H 226 H 187 H Uric Acid Calcium Phosphorus Magnesium AST ALT Total Creatine Kinase CK-MB (CK-2) Troponin T NT-Pro-B Natriuret Pep Total Protein Albumin Triglycerides HDL Cholesterol Urine WBC (Auto) Urine Creatinine Urine Total Protein Vancomycin Trough 06/07/19 06/07/19 06/08/19 22:54 23:46 04:20 WBC 16.0 H RBC Hgb 10.0 L Hct 32.1 L MCV MCH 27 L MCHC 31 L RDW 19.4 H Lymph % (Auto) [place] % (Auto) Eos % (Auto) Lymph # [place] # Eos # Seg Neutrophils % Seg Neuts % (Manual) 87.0 H Lymphocytes % (Manual) 7.0 L Monocytes % (Manual) Eosinophils % (Manual) Nucleated RBC % Seg Neutrophils # Seg Neutrophils # Man 13.9 H Lymphocytes # (Manual) 1.1 L Monocytes # (Manual) 1.0 H Eosinophils # (Manual) PT INR APTT POC ABG pH ABG pH POC ABG pCO2 POC ABG pO2 ABG pO2 ABG HCO3 ABG O2 Saturation ABG Base Excess ABG Hemoglobin Oxyhemoglobin Sodium Potassium Chloride Carbon Dioxide BUN Creatinine Glucose POC Glucose 199 H 172 H Uric Acid Calcium Phosphorus Magnesium AST ALT Total Creatine Kinase CK-MB (CK-2) Troponin T NT-Pro-B Natriuret Pep Total Protein Albumin Triglycerides HDL Cholesterol Urine WBC (Auto) Urine Creatinine Urine Total Protein Vancomycin Trough 06/08/19 06/08/19 06/08/19 04:20 05:15 11:31 WBC RBC Hgb Hct MCV MCH MCHC RDW Lymph % (Auto) [place] % (Auto) Eos % (Auto) Lymph # [place] # Eos # Seg Neutrophils % Seg Neuts % (Manual) Lymphocytes % (Manual) Monocytes % (Manual) Eosinophils % (Manual) Nucleated RBC % Seg Neutrophils # Seg Neutrophils # Man Lymphocytes # (Manual) Monocytes # (Manual) Eosinophils # (Manual) PT INR APTT POC ABG pH ABG pH POC ABG pCO2 POC ABG pO2 ABG pO2 ABG HCO3 ABG O2 Saturation ABG Base Excess ABG Hemoglobin Oxyhemoglobin Sodium 146 H D Potassium Chloride Carbon Dioxide BUN 77 H Creatinine Glucose 205 H POC Glucose 209 H 181 H Uric Acid Calcium Phosphorus Magnesium AST ALT 66 H Total Creatine Kinase CK-MB (CK-2) Troponin T NT-Pro-B Natriuret Pep Total Protein 5.5 L Albumin 2.9 L Triglycerides HDL Cholesterol Urine WBC (Auto) Urine Creatinine Urine Total Protein Vancomycin Trough 06/08/19 06/08/19 06/09/19 17:28 23:24 05:20 WBC RBC Hgb Hct MCV MCH MCHC RDW Lymph % (Auto) [place] % (Auto) Eos % (Auto) Lymph # [place] # Eos # Seg Neutrophils % Seg Neuts % (Manual) Lymphocytes % (Manual) Monocytes % (Manual) Eosinophils % (Manual) Nucleated RBC % Seg Neutrophils # Seg Neutrophils # Man Lymphocytes # (Manual) Monocytes # (Manual) Eosinophils # (Manual) PT INR APTT POC ABG pH ABG pH POC ABG pCO2 POC ABG pO2 ABG pO2 ABG HCO3 ABG O2 Saturation ABG Base Excess ABG Hemoglobin Oxyhemoglobin Sodium Potassium Chloride Carbon Dioxide BUN Creatinine Glucose POC Glucose 215 H 200 H 173 H Uric Acid Calcium Phosphorus Magnesium AST ALT Total Creatine Kinase CK-MB (CK-2) Troponin T NT-Pro-B Natriuret Pep Total Protein Albumin Triglycerides HDL Cholesterol Urine WBC (Auto) Urine Creatinine Urine Total Protein Vancomycin Trough 06/09/19 06/09/19 06/09/19 12:07 18:32 23:51 WBC RBC Hgb Hct MCV MCH MCHC RDW Lymph % (Auto) [place] % (Auto) Eos % (Auto) Lymph # [place] # Eos # Seg Neutrophils % Seg Neuts % (Manual) Lymphocytes % (Manual) Monocytes % (Manual) Eosinophils % (Manual) Nucleated RBC % Seg Neutrophils # Seg Neutrophils # Man Lymphocytes # (Manual) Monocytes # (Manual) Eosinophils # (Manual) PT INR APTT POC ABG pH ABG pH POC ABG pCO2 POC ABG pO2 ABG pO2 ABG HCO3 ABG O2 Saturation ABG Base Excess ABG Hemoglobin Oxyhemoglobin Sodium Potassium Chloride Carbon Dioxide BUN Creatinine Glucose POC Glucose 117 H 169 H 147 H Uric Acid Calcium Phosphorus Magnesium AST ALT Total Creatine Kinase CK-MB (CK-2) Troponin T NT-Pro-B Natriuret Pep Total Protein Albumin Triglycerides HDL Cholesterol Urine WBC (Auto) Urine Creatinine Urine Total Protein Vancomycin Trough 06/10/19 06/10/19 06/10/19 05:45 05:45 06:01 WBC 14.6 H RBC Hgb 9.9 L Hct 32.2 L MCV MCH 27 L MCHC 31 L RDW 19.6 H Lymph % (Auto) 10.5 L [place] % (Auto) 9.4 H Eos % (Auto) Lymph # [place] # 1.4 H Eos # Seg Neutrophils % 79.9 H Seg Neuts % (Manual) Lymphocytes % (Manual) Monocytes % (Manual) Eosinophils % (Manual) Nucleated RBC % Seg Neutrophils # 11.7 H Seg Neutrophils # Man Lymphocytes # (Manual) Monocytes # (Manual) Eosinophils # (Manual) PT INR APTT POC ABG pH ABG pH POC ABG pCO2 POC ABG pO2 ABG pO2 ABG HCO3 ABG O2 Saturation ABG Base Excess ABG Hemoglobin Oxyhemoglobin Sodium 150 H Potassium Chloride 108.3 H Carbon Dioxide BUN 49 H Creatinine Glucose 172 H POC Glucose 165 H Uric Acid Calcium Phosphorus Magnesium 1.40 L AST ALT Total Creatine Kinase CK-MB (CK-2) Troponin T NT-Pro-B Natriuret Pep Total Protein Albumin Triglycerides HDL Cholesterol Urine WBC (Auto) Urine Creatinine Urine Total Protein Vancomycin Trough 06/10/19 06/10/19 06/11/19 12:11 18:30 00:02 WBC RBC Hgb Hct MCV MCH MCHC RDW Lymph % (Auto) [place] % (Auto) Eos % (Auto) Lymph # [place] # Eos # Seg Neutrophils % Seg Neuts % (Manual) Lymphocytes % (Manual) Monocytes % (Manual) Eosinophils % (Manual) Nucleated RBC % Seg Neutrophils # Seg Neutrophils # Man Lymphocytes # (Manual) Monocytes # (Manual) Eosinophils # (Manual) PT INR APTT POC ABG pH ABG pH POC ABG pCO2 POC ABG pO2 ABG pO2 ABG HCO3 ABG O2 Saturation ABG Base Excess ABG Hemoglobin Oxyhemoglobin Sodium Potassium Chloride Carbon Dioxide BUN Creatinine Glucose POC Glucose 150 H 154 H 130 H Uric Acid Calcium Phosphorus Magnesium AST ALT Total Creatine Kinase CK-MB (CK-2) Troponin T NT-Pro-B Natriuret Pep Total Protein Albumin Triglycerides HDL Cholesterol Urine WBC (Auto) Urine Creatinine Urine Total Protein Vancomycin Trough 06/11/19 06/11/19 06/11/19 05:33 08:34 12:33 WBC RBC Hgb Hct MCV MCH MCHC RDW Lymph % (Auto) [place] % (Auto) Eos % (Auto) Lymph # [place] # Eos # Seg Neutrophils % Seg Neuts % (Manual) Lymphocytes % (Manual) Monocytes % (Manual) Eosinophils % (Manual) Nucleated RBC % Seg Neutrophils # Seg Neutrophils # Man Lymphocytes # (Manual) Monocytes # (Manual) Eosinophils # (Manual) PT INR APTT POC ABG pH ABG pH POC ABG pCO2 POC ABG pO2 ABG pO2 ABG HCO3 ABG O2 Saturation ABG Base Excess ABG Hemoglobin Oxyhemoglobin Sodium 154 H Potassium Chloride 111.6 H Carbon Dioxide BUN 41 H Creatinine Glucose 147 H POC Glucose 183 H 185 H Uric Acid Calcium Phosphorus Magnesium AST ALT Total Creatine Kinase CK-MB (CK-2) Troponin T NT-Pro-B Natriuret Pep Total Protein Albumin Triglycerides HDL Cholesterol Urine WBC (Auto) Urine Creatinine Urine Total Protein Vancomycin Trough 06/11/19 06/11/19 06/12/19 18:22 23:46 03:21 WBC 11.9 H RBC 3.61 L Hgb 9.9 L Hct 31.7 L MCV MCH 27 L MCHC 31 L RDW 19.3 H Lymph % (Auto) 10.6 L [place] % (Auto) 8.6 H Eos % (Auto) Lymph # [place] # 1.0 H Eos # Seg Neutrophils % 80.6 H Seg Neuts % (Manual) Lymphocytes % (Manual) Monocytes % (Manual) Eosinophils % (Manual) Nucleated RBC % Seg Neutrophils # 9.6 H Seg Neutrophils # Man Lymphocytes # (Manual) Monocytes # (Manual) Eosinophils # (Manual) PT INR APTT POC ABG pH ABG pH POC ABG pCO2 POC ABG pO2 ABG pO2 ABG HCO3 ABG O2 Saturation ABG Base Excess ABG Hemoglobin Oxyhemoglobin Sodium Potassium Chloride Carbon Dioxide BUN Creatinine Glucose POC Glucose 158 H 182 H Uric Acid Calcium Phosphorus Magnesium AST ALT Total Creatine Kinase CK-MB (CK-2) Troponin T NT-Pro-B Natriuret Pep Total Protein Albumin Triglycerides HDL Cholesterol Urine WBC (Auto) Urine Creatinine Urine Total Protein Vancomycin Trough 06/12/19 06/12/19 06/12/19 03:21 06:04 11:28 WBC RBC Hgb Hct MCV MCH MCHC RDW Lymph % (Auto) [place] % (Auto) Eos % (Auto) Lymph # [place] # Eos # Seg Neutrophils % Seg Neuts % (Manual) Lymphocytes % (Manual) Monocytes % (Manual) Eosinophils % (Manual) Nucleated RBC % Seg Neutrophils # Seg Neutrophils # Man Lymphocytes # (Manual) Monocytes # (Manual) Eosinophils # (Manual) PT INR APTT POC ABG pH ABG pH POC ABG pCO2 POC ABG pO2 ABG pO2 ABG HCO3 ABG O2 Saturation ABG Base Excess ABG Hemoglobin Oxyhemoglobin Sodium 148 H Potassium Chloride 107.3 H Carbon Dioxide BUN 34 H Creatinine 0.7 L Glucose 194 H POC Glucose 133 H 167 H Uric Acid Calcium Phosphorus Magnesium 1.40 L AST ALT Total Creatine Kinase CK-MB (CK-2) Troponin T NT-Pro-B Natriuret Pep Total Protein Albumin Triglycerides HDL Cholesterol Urine WBC (Auto) Urine Creatinine Urine Total Protein Vancomycin Trough 06/12/19 06/12/19 06/13/19 18:47 21:27 00:04 WBC RBC Hgb Hct MCV MCH MCHC RDW Lymph % (Auto) [place] % (Auto) Eos % (Auto) Lymph # [place] # Eos # Seg Neutrophils % Seg Neuts % (Manual) Lymphocytes % (Manual) Monocytes % (Manual) Eosinophils % (Manual) Nucleated RBC % Seg Neutrophils # Seg Neutrophils # Man Lymphocytes # (Manual) Monocytes # (Manual) Eosinophils # (Manual) PT INR APTT POC ABG pH ABG pH POC ABG pCO2 POC ABG pO2 ABG pO2 ABG HCO3 ABG O2 Saturation ABG Base Excess ABG Hemoglobin Oxyhemoglobin Sodium Potassium Chloride Carbon Dioxide BUN Creatinine Glucose POC Glucose 210 H 263 H 248 H Uric Acid Calcium Phosphorus Magnesium AST ALT Total Creatine Kinase CK-MB (CK-2) Troponin T NT-Pro-B Natriuret Pep Total Protein Albumin Triglycerides HDL Cholesterol Urine WBC (Auto) Urine Creatinine Urine Total Protein Vancomycin Trough 06/13/19 06/13/19 06/13/19 04:32 05:46 13:30 WBC RBC Hgb Hct MCV MCH MCHC RDW Lymph % (Auto) [place] % (Auto) Eos % (Auto) Lymph # [place] # Eos # Seg Neutrophils % Seg Neuts % (Manual) Lymphocytes % (Manual) Monocytes % (Manual) Eosinophils % (Manual) Nucleated RBC % Seg Neutrophils # Seg Neutrophils # Man Lymphocytes # (Manual) Monocytes # (Manual) Eosinophils # (Manual) PT INR APTT POC ABG pH ABG pH POC ABG pCO2 POC ABG pO2 ABG pO2 ABG HCO3 ABG O2 Saturation ABG Base Excess ABG Hemoglobin Oxyhemoglobin Sodium Potassium Chloride Carbon Dioxide BUN 27 H Creatinine 0.7 L Glucose 253 H POC Glucose 201 H 241 H Uric Acid Calcium Phosphorus Magnesium AST ALT Total Creatine Kinase CK-MB (CK-2) Troponin T NT-Pro-B Natriuret Pep Total Protein Albumin Triglycerides HDL Cholesterol Urine WBC (Auto) Urine Creatinine Urine Total Protein Vancomycin Trough 06/13/19 06/13/19 06/14/19 17:33 23:49 04:50 WBC RBC Hgb Hct MCV MCH MCHC RDW Lymph % (Auto) [place] % (Auto) Eos % (Auto) Lymph # [place] # Eos # Seg Neutrophils % Seg Neuts % (Manual) Lymphocytes % (Manual) Monocytes % (Manual) Eosinophils % (Manual) Nucleated RBC % Seg Neutrophils # Seg Neutrophils # Man Lymphocytes # (Manual) Monocytes # (Manual) Eosinophils # (Manual) PT INR APTT POC ABG pH ABG pH POC ABG pCO2 POC ABG pO2 ABG pO2 ABG HCO3 ABG O2 Saturation ABG Base Excess ABG Hemoglobin Oxyhemoglobin Sodium Potassium Chloride Carbon Dioxide BUN 37 H Creatinine Glucose 256 H POC Glucose 264 H 236 H Uric Acid Calcium Phosphorus Magnesium AST ALT Total Creatine Kinase CK-MB (CK-2) Troponin T NT-Pro-B Natriuret Pep Total Protein Albumin Triglycerides HDL Cholesterol Urine WBC (Auto) Urine Creatinine Urine Total Protein Vancomycin Trough 06/14/19 06/14/19 05:26 12:31 WBC RBC Hgb Hct MCV MCH MCHC RDW Lymph % (Auto) [place] % (Auto) Eos % (Auto) Lymph # [place] # Eos # Seg Neutrophils % Seg Neuts % (Manual) Lymphocytes % (Manual) Monocytes % (Manual) Eosinophils % (Manual) Nucleated RBC % Seg Neutrophils # Seg Neutrophils # Man Lymphocytes # (Manual) Monocytes # (Manual) Eosinophils # (Manual) PT INR APTT POC ABG pH ABG pH POC ABG pCO2 POC ABG pO2 ABG pO2 ABG HCO3 ABG O2 Saturation ABG Base Excess ABG Hemoglobin Oxyhemoglobin Sodium Potassium Chloride Carbon Dioxide BUN Creatinine Glucose POC Glucose 239 H 116 H Uric Acid Calcium Phosphorus Magnesium AST ALT Total Creatine Kinase CK-MB (CK-2) Troponin T NT-Pro-B Natriuret Pep Total Protein Albumin Triglycerides HDL Cholesterol Urine WBC (Auto) Urine Creatinine Urine Total Protein Vancomycin Trough Chest x-ray: report reviewed, image reviewed
[2019-06-14] MEDS ORDERED: INSULIN GLARGINE 100 UNITS/ML SUB-Q SCH (22:00)
[2019-06-15] MEDS: methylPREDNISolone Sod Succinate 40 MG/1 ML INJ IV SCH ×3 (01:31→20:25)
[2019-06-15] MEDS: INSULIN LISPRO 100 UNIT/ML SUB-Q SCH ×5 (07:41→23:41)
--- NOTE | 2019-06-15 08:34 | XRay Report ---
CHEST 1 VIEW 0753 hours INDICATION / CLINICAL INFORMATION: Acute respiratory failure. COMPARISON: 05/27/2019 FINDINGS: SUPPORT DEVICES: The endotracheal tube is been removed. Nasogastric tube is followed to the proximal stomach but its distal tip is cut off the [id number]. Left IJ dual-lumen catheter terminates in th e superior right atrium. Right venous catheter has been removed. HEART / MEDIASTINUM: Stable mild cardiomegaly. LUNGS / PLEURA: There is mild pulmonary venous congestion otherwise the lungs are generally clear. Ri ght lower lobe atelectasis has resolved. No pneumothorax. ADDITIONAL FINDINGS: No significant additional findings. IMPRESSION: Stable cardiomegaly. Lungs generally clear. Signer Name: Doni Jeffrey Jr, MD Signed: 06/15/2019 8:30 AM Workstation Name: [id number]
[2019-06-15 08:42] LABS: BUN/Creatinine Ratio 66; Blood Urea Nitrogen 46 mg/dL (9-20); Calcium 9.2 mg/dL (8.4-10.2); Hemolysis Index 3
[2019-06-15] MEDS: ENOXAPARIN 30 MG/0.3 ML INJ SUB-Q SCH (10:07)
[2019-06-15] MEDS: hydroCHLOROthiazide 25 MG TAB PO SCH (10:08)
[2019-06-15] MEDS: MINOXIDIL 2.5 MG TAB PO SCH ×2 (10:09→23:43)
[2019-06-15] MEDS: FAMOTIDINE 20 MG TAB PO SCH (10:09)
--- NOTE | 2019-06-15 11:24 | Progress Note ---
Assessment and Plan Assessment and plan: 34-year-old man with morbid obesity was brought to the hospital for shortness of breath and insomnia. He was found to have severe hypoxia and bradycardia who then became pulseless, he was cyanotic and he was intubated after receiving CPR with 2 rounds of epinephrine. Hypertensive emergency cont bp meds off cardene drip since 06/13 Acute respiratory failure with hypoxia on mechanical ventilator greater than 96 hours -Obesity hypoventilation Patient extubated 06/07 after being on the ventilator for 37 days, continue NIV at bedtime. Continue oxygen supplement in the daytime. on 50% ventimask Status post cardiac arrest anoxic/ischemic brain injury Patient's mentation is improved ., EEG was negative for seizures and neurology consult appreciated. 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 manager Morbid obesity; will need weight loss program upon discharge DVT prophylaxis; Lovenox Disposition; does not have a pay source for rehab, therefore home with home health services Downgrade to [facility] is mom; Cecelia Jay [phone] History Interval history: No fevers No vomiting no seizure-like activity No diarrhea No agitation No obvious discomfort Hospitalist Physical - Physical exam Narrative exam: General.: Morbidly obese HEENT: Moist mucous membranes, extraocular muscles intact, no lymphadenopathy Neck: supple Cardiac: S1-S2 heard Lungs: clear to auscultation bilaterally Abdomen: soft , nontender, nondistended, bowel sounds positive Extremities: edema in all extremities Skin: no rash or lesions Neurologic: He is awake and alert. He is currently nonverbal. But he nods and shakes his head. He obeys commands Psych: calm, - Constitutional Vitals: Temp Pulse Resp BP Pulse Ox 99.1 F 92 H 20 118/57 100 06/15/19 08:00 06/15/19 09:01 06/15/19 09:01 06/15/19 09:01 06/15/19 09:01 General appearance: Present: no acute distress Results - Labs CBC & Chem 7: 06/12/19 03:21 06/15/19 04:05 Labs: Laboratory Last Values WBC 11.9 K/mm3 (4.5-11.0) H 06/12/19 03:21 RBC 3.61 M/mm3 (3.65-5.03) L 06/12/19 03:21 Hgb 9.9 gm/dl (11.8-15.2) L 06/12/19 03:21 Hct 31.7 % (35.5-45.6) L 06/12/19 03:21 MCV 88 fl (84-94) 06/12/19 03:21 MCH 27 pg (28-32) L 06/12/19 03:21 MCHC 31 % (32-34) L 06/12/19 03:21 RDW 19.3 % (13.2-15.2) H 06/12/19 03:21 Plt Count 159 K/mm3 (140-440) 06/12/19 03:21 Lymph % (Auto) 10.6 % (13.4-35.0) L 06/12/19 03:21 [place] % (Auto) 8.6 % (0.0-7.3) H 06/12/19 03:21 Eos % (Auto) 0.0 % (0.0-4.3) 06/12/19 03:21 Baso % (Auto) 0.2 % (0.0-1.8) 06/12/19 03:21 Lymph # 1.3 K/mm3 (1.2-5.4) 06/12/19 03:21 [place] # 1.0 K/mm3 (0.0-0.8) H 06/12/19 03:21 Eos # 0.0 K/mm3 (0.0-0.4) 06/12/19 03:21 Baso # 0.0 K/mm3 (0.0-0.1) 06/12/19 03:21 Add Manual Diff Complete 06/08/19 04:20 Total Counted 100 06/08/19 04:20 Seg Neutrophils % 80.6 % (40.0-70.0) H 06/12/19 03:21 Seg Neuts % (Manual) 87.0 % (40.0-70.0) H 06/08/19 04:20 Band Neutrophils % 0 % 06/08/19 04:20 Lymphocytes % (Manual) 7.0 % (13.4-35.0) L 06/08/19 04:20 Reactive Lymphs % (Man) 0 % 06/08/19 04:20 Monocytes % (Manual) 6.0 % (0.0-7.3) 06/08/19 04:20 Eosinophils % (Manual) 0 % (0.0-4.3) 06/08/19 04:20 Basophils % (Manual) 0 % (0.0-1.8) 06/08/19 04:20 Metamyelocytes % 0 % 06/08/19 04:20 Myelocytes % 0 % 06/08/19 04:20 Promyelocytes % 0 % 06/08/19 04:20 Blast Cells % 0 % 06/08/19 04:20 Nucleated RBC % Not Reportable 06/08/19 04:20 Seg Neutrophils # 9.6 K/mm3 (1.8-7.7) H 06/12/19 03:21 Seg Neutrophils # Man 13.9 K/mm3 (1.8-7.7) H 06/08/19 04:20 Band Neutrophils # 0.0 K/mm3 06/08/19 04:20 Lymphocytes # (Manual) 1.1 K/mm3 (1.2-5.4) L 06/08/19 04:20 Abs React Lymphs (Man) 0.0 K/mm3 06/08/19 04:20 Monocytes # (Manual) 1.0 K/mm3 (0.0-0.8) H 06/08/19 04:20 Eosinophils # (Manual) 0.0 K/mm3 (0.0-0.4) 06/08/19 04:20 Basophils # (Manual) 0.0 K/mm3 (0.0-0.1) 06/08/19 04:20 Metamyelocytes # 0.0 K/mm3 06/08/19 04:20 Myelocytes # 0.0 K/mm3 06/08/19 04:20 Promyelocytes # 0.0 K/mm3 06/08/19 04:20 Blast Cells # 0.0 K/mm3 06/08/19 04:20 WBC Morphology Not Reportable 06/08/19 04:20 Hypersegmented Neuts Not Reportable 06/08/19 04:20 Hyposegmented Neuts Not Reportable 06/08/19 04:20 Hypogranular Neuts Not Reportable 06/08/19 04:20 Smudge Cells Not Reportable 06/08/19 04:20 Toxic Granulation Not Reportable 06/08/19 04:20 Toxic Vacuolation Not Reportable 06/08/19 04:20 Dohle Bodies Not Reportable 06/08/19 04:20 Pelger-Huet Anomaly Not Reportable 06/08/19 04:20 Renea Rods Not Reportable 06/08/19 04:20 Platelet Estimate Consistent w auto 06/08/19 04:20 Clumped Platelets Not Reportable 06/08/19 04:20 Plt Clumps, EDTA Not Reportable 06/08/19 04:20 Large Platelets Not Reportable 06/08/19 04:20 Giant Platelets Not Reportable 06/08/19 04:20 Platelet Satelliting Not Reportable 06/08/19 04:20 Plt Morphology Comment Not Reportable 06/08/19 04:20 RBC Morphology Not Reportable 06/08/19 04:20 Dimorphic RBCs Not Reportable 06/08/19 04:20 Polychromasia Not Reportable 06/08/19 04:20 Hypochromasia Not Reportable 06/08/19 04:20 Poikilocytosis Not Reportable 06/08/19 04:20 Anisocytosis Not Reportable 06/08/19 04:20 Microcytosis Not Reportable 06/08/19 04:20 Macrocytosis Not Reportable 06/08/19 04:20 Spherocytes Not Reportable 06/08/19 04:20 Pappenheimer Bodies Not Reportable 06/08/19 04:20 Sickle Cells Not Reportable 06/08/19 04:20 Target Cells Not Reportable 06/08/19 04:20 Tear Drop Cells Not Reportable 06/08/19 04:20 Ovalocytes Rare 06/08/19 04:20 Stomatocytes Few 06/08/19 04:20 Helmet Cells Not Reportable 06/08/19 04:20 [employer] Bodies Not Reportable 06/08/19 04:20 [place] Rings Not Reportable 06/08/19 04:20 [place] Cells Not Reportable 06/08/19 04:20 Bite Cells Not Reportable 06/08/19 04:20 Crenated Cell Not Reportable 06/08/19 04:20 Elliptocytes Not Reportable 06/08/19 04:20 Acanthocytes (Spur) Not Reportable 06/08/19 04:20 Rouleaux Not Reportable 06/08/19 04:20 Hemoglobin C Crystals Not Reportable 06/08/19 04:20 Schistocytes Few 06/08/19 04:20 Malaria parasites Not Reportable 06/08/19 04:20 Syed Bodies Not Reportable 06/08/19 04:20 Hem Pathologist Commnt No 06/08/19 04:20 PT 15.4 Sec. (12.2-14.9) H 05/01/19 Unknown INR 1.23 (0.87-1.13) H 05/01/19 Unknown APTT 22.7 Sec. (24.2-36.6) L 05/01/19 Unknown POC ABG pH 7.462 (7.35-7.45) H 06/05/19 03:52 ABG pH 7.480 pH Units (7.350-7.450) H 06/07/19 04:30 POC ABG pCO2 39.8 (35-45) 06/05/19 03:52 ABG pCO2 37.4 mm Hg 06/07/19 04:30 POC ABG pO2 86 (80-105) 06/05/19 03:52 ABG pO2 77.0 mm Hg (80.0-90.0) L 06/07/19 04:30 POC ABG HCO3 28.4 (22-26 mml/L) 06/05/19 03:52 ABG HCO3 27.2 mmol/L (20.0-26.0) H 06/07/19 04:30 POC ABG Total CO2 30 (23-27mmol/L) 06/05/19 03:52 POC ABG O2 Sat 97 06/05/19 03:52 ABG O2 Saturation 96.7 % (95.0-99.0) 06/07/19 04:30 ABG O2 Content 9.5 (0.0-44) 06/07/19 04:30 POC ABG Base Excess 5 ((-2) - (+3)mmol/L) 06/05/19 03:52 ABG Base Excess 3.5 mmol/L (-2.0-3.0) H 06/07/19 04:30 ABG Hemoglobin 7.1 gm/dl (14.0-18.0) L 06/07/19 04:30 ABG Carboxyhemoglobin 2.1 % (0.0-5.0) 06/07/19 04:30 ABG Methemoglobin 0.4 % (0.0-1.5) 06/07/19 04:30 Oxyhemoglobin 94.2 % (95.0-99.0) L 06/07/19 04:30 FiO2 30 % 06/07/19 04:30 Sodium 143 mmol/L (137-145) 06/15/19 04:05 Potassium 4.1 mmol/L (3.6-5.0) 06/15/19 04:05 Chloride 100.2 mmol/L (98-107) 06/15/19 04:05 Carbon Dioxide 28 mmol/L (22-30) 06/15/19 04:05 Anion Gap 19 mmol/L 06/15/19 04:05 BUN 46 mg/dL (9-20) H 06/15/19 04:05 Creatinine 0.7 mg/dL (0.8-1.5) L 06/15/19 04:05 Estimated GFR > 60 ml/min 06/15/19 04:05 BUN/Creatinine Ratio 66 % 06/15/19 04:05 Glucose 265 mg/dL (75-100) H 06/15/19 04:05 POC Glucose 265 (70-105) H 06/15/19 05:55 Osmolality 327 Mosm/kg 05/07/19 13:45 Uric Acid 18.0 mg/dL (3.5-7.6) H 05/07/19 13:45 Calcium 9.2 mg/dL (8.4-10.2) 06/15/19 04:05 Phosphorus 3.70 mg/dL (2.5-4.5) 06/10/19 05:45 Magnesium 1.40 mg/dL (1.7-2.3) L 06/12/19 03:21 Total Bilirubin 0.50 mg/dL (0.1-1.2) 06/08/19 04:20 AST 23 units/L (5-40) 06/08/19 04:20 ALT 66 units/L (7-56) H 06/08/19 04:20 Alkaline Phosphatase 59 units/L (35-129) 06/08/19 04:20 Total Creatine Kinase 131 units/L (55-170) 05/02/19 04:41 CK-MB (CK-2) 5.2 ng/mL (0.0-4.0) H 05/02/19 04:41 CK-MB (CK-2) Rel Index 3.9 (0-4) 05/02/19 04:41 Troponin T 0.067 ng/mL (0.00-0.029) H D 05/02/19 04:41 NT-Pro-B Natriuret Pep 6831 pg/mL (0-450) H 05/01/19 Unknown Total Protein 5.5 g/dL (6.3-8.2) L 06/08/19 04:20 Albumin 2.9 g/dL (3.9-5) L 06/08/19 04:20 Albumin/Globulin Ratio 1.1 % 06/08/19 04:20 Triglycerides 173 mg/dL (2-149) H 05/17/19 Unknown Cholesterol 173 mg/dL (50-199) 05/02/19 00:06 LDL Cholesterol Direct 126 mg/dL (50-130) 05/02/19 00:06 HDL Cholesterol 18 mg/dL (40-59) L 05/02/19 00:06 Cholesterol/HDL Ratio 9.61 % 05/02/19 00:06 Procalcitonin 0.54 ng/mL (<0.15) 05/03/19 11:52 Urine Color Yellow (Yellow) 05/20/19 12:00 Urine Turbidity Cloudy (Clear) 05/20/19 12:00 Urine pH 5.0 (5.0-7.0) 05/20/19 12:00 Ur Specific [place] 1.015 (1.003-1.030) 05/20/19 12:00 Urine Protein 30 mg/dl mg/dL (Negative) 05/20/19 12:00 Urine Glucose (UA) Neg mg/dL (Negative) 05/20/19 12:00 Urine Ketones Neg mg/dL (Negative) 05/20/19 12:00 Urine Blood Lg (Negative) 05/20/19 12:00 Urine Nitrite Neg (Negative) 05/20/19 12:00 Urine Bilirubin Neg (Negative) 05/20/19 12:00 Urine Urobilinogen < 2.0 mg/dL (<2.0) 05/20/19 12:00 Ur Leukocyte Esterase Mod (Negative) 05/20/19 12:00 Urine WBC (Auto) 26.0 /HPF (0.0-6.0) H 05/20/19 12:00 Urine RBC (Auto) 83.0 /HPF (0.0-6.0) 05/20/19 12:00 Urine Bacteria (Auto) 1+ /HPF (Negative) 05/20/19 12:00 Uric Acid Crystals 3+ 05/03/19 10:55 Urine Mucus Few /HPF 05/20/19 12:00 Urine Yeast (Budding) 3+ /HPF 05/20/19 12:00 Urine Creatinine 292.8 mg/dL (0.1-20.0) H 05/07/19 22:40 Urine Sodium 11 mmol/L 05/07/19 22:40 Urine Total Protein 269 mg/dL (5-11.8) H 05/07/19 22:40 Vancomycin Trough 20.5 ug/mL (5.0-20.0) H 05/15/19 09:00 Random Vancomycin 11.5 ug/mL (0-40.0) 05/27/19 06:00 AMNA Screen Negative (Negative) 05/07/19 13:45 Hepatitis A IgM Ab Non-reactive (NonReactive) 05/07/19 13:45 Hep Bs Antigen Non-reactive (Negative) 05/07/19 13:45 Hep B Core IgM Ab Non-reactive (NonReactive) 05/07/19 13:45 Hepatitis C Antibody Non-reactive (NonReactive) 05/07/19 13:45 Active Medications - Current Medications Current Medications: Generic Name Dose Route Start Last Admin Trade Name Freq PRN Reason Stop Dose Admin Albumin Human 25 gm 05/19/19 10:47 Alburx 25% (Albumin) IV ARIANE PRN Hypotension Lipase/Protease/Amylase 1 each 05/14/19 15:01 Pancreaze 10,500 Unit FEEDTUBE PRN PRN For Clogged Feeding Tube Clonidine HCl 0.3 mg 06/06/19 20:00 06/13/19 20:28 Catapres-Tts Patch TD 0.3 mg Lao VICKEY Administration Dextrose 50 gm 05/01/19 20:24 D50w (25gm) Vial IV Q30MIN PRN Hypoglycemia Protocol Enoxaparin Sodium 40 mg 06/14/19 18:00 06/15/19 10:07 Enoxaparin SUB-Q 40 mg QDAY VICKEY Administration Famotidine 20 mg 05/16/19 10:00 06/15/19 10:09 Pepcid PO 20 mg DAILY VICKEY Administration Hydrochlorothiazide 50 mg 06/12/19 12:00 06/15/19 10:08 Hctz PO 50 mg QDAY VICKEY Administration Levetiracetam 750 mg/ Dextrose 107.5 mls @ 400 mls/hr 06/09/19 22:00 06/14/19 23:15 IV 06/15/19 23:59 400 mls/hr Q12HR VICKEY Administration Insulin Glargine 10 units 06/15/19 11:22 Lantus SUB-Q QHS VICKEY Insulin Human Lispro 0 unit 06/01/19 14:00 06/15/19 07:41 Humalog SUB-Q 6 unit Q6HR VICKEY Administration Protocol Labetalol HCl 10 mg 06/11/19 22:48 06/12/19 01:20 Labetalol IV 10 mg Q4H PRN Administration BP >170/105; hold for HR <60 Labetalol HCl 200 mg 06/13/19 11:36 06/15/19 07:40 Labetalol PO 200 mg Q8HR VICKEY Administration Levetiracetam 750 mg 06/16/19 10:00 Keppra PO BID [facility] Methylprednisolone Sodium Succinate 20 mg 06/14/19 18:00 06/15/19 10:09 Solu-Medrol IV 20 mg Q8H VICKEY Administration Minoxidil 2.5 mg 06/06/19 22:00 06/15/19 10:09 Loniten PO 2.5 mg BID VICKEY Administration Simple Syrup 15 ml 05/14/19 15:01 Simple Syrup FEEDTUBE PRN PRN Hypoglycemia Simple Syrup 30 ml 05/14/19 15:01 Simple Syrup FEEDTUBE PRN PRN Hypoglycemia Sodium Bicarbonate 325 mg 05/14/19 15:01 Sodium Bicarbonate FEEDTUBE PRN PRN For Clogged Feeding Tube Nutrition/Malnutrition Assess - Dietary Evaluation Nutrition/Malnutrition Findings: Nutrition Notes Start: 05/04/19 12:54 Freq: Status: Active Protocol: Document 06/10/19 12:28 CW (Rec: 06/10/19 12:53 CW [id number]) Co-Sign 06/10/19 12:28 LP Nutrition Notes Initial or Follow up Reassessment Current Diagnosis Acute Kidney Injury,Sepsis, Respiratory Failure Other Pertinent Diagnosis on HD Current Diet Nepro 1.8 at 50 ml/hr Labs/Tests Na 150 BUN 49 BG 172 POC 165 Pertinent Medications D5w at 125 ml/hr Humalog Solumedrol Enoxaparin Height 6 ft 4 in Weight 257.2 kg [place] Body Weight (kg) 91.81 BMI 69.0 Weight change and time frame No wt change noted Weight Status Morbidly Obese Subjective/Other Information Pt tolerating Nepro at 50ml/hr . Pt on HD. Pt Extubated on . 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 Pt has elevated Na levels. Water flush increased to 250 ml q4hr. Percent of energy/protein needs met: 100%/43% Burn Absent Trauma Absent Current % PO Negligible Minimum of two criteria No physical signs of malnutrition #1 Nutrition Diagnosis Inadequate oral intake Diagnosis Progress(for reassessment Continues documentation) Is patient on ventilator? No Is Patient Ambulatory and/or Out of Bed No REE-([facility]-confined to bed) 4342.284 Kcal/Kg value to use for calculation 8 Approximate Energy Requirements Using 2058 kcal/Kg Calculation Used for Recommendations Kcal/kg Additional Notes PRO needs: 225 g (up to 2.5 g/ kg IBW) Fluid needs: 1 ml/kcal Nutrition Intervention Change Diet Order: Continue TF Nutrition Support: Nepro 1.8 at 50 ml/hr Flush with 250ml q4h Kcal 2,160 Protein (gm) 97 Fluid (mL) 872 Goal #1 TF tolerance Goal #2 Meet at least 75% kcal/PRO needs via TF Goal #3 diet advancement Anticipated Discharge Needs: Unable to determine at this time Follow-Up By: 06/15/19 Additional Comments Follow for TF tolerance/ diet advancement/ Na labs
--- NOTE | 2019-06-15 12:11 | Fluoroscopy Report ---
MODIFIED BARIUM SWALLOW INDICATION: dysphagia TECHNIQUE: Swallowing was evaluated in the lateral position under direct fluoroscopy. FINDINGS: The patient was evaluated with puree consistency. The patient refused to ingest the oral consistencies. The examination was terminated. IMPRESSION: Unsuccessful modified barium swallow. The patient refused to cooperate. Fluoroscopic time: 11 seconds Number of fluoroscopic images: 1 Signer Name: Doni Jeffrey Jr, MD Signed: 06/15/2019 12:06 PM Workstation Name: [id number]
[2019-06-15] MEDS: levETIRAcetam 750 MG in DEXTROSE 5% IN WATER 100 ML IV SCH ×2 (12:33→23:43)
--- NOTE | 2019-06-15 16:00 | Progress Note ---
Assessment and Plan Imp: 1. Acute respiratory failure, hypoxia 2. A/C respiratory failure, hypercapnea 3. LANDON/OHS/Morbid obesity 4. CARLA 5. Pulm HTN 6. Sepsis -> ? Pneumonia, ? Meningitis 7. Seizures Rec: 1. Avoid sedating meds 2. HOB elevated if possible 3. Control BP with PO meds; change HCTZ to Lasix PO 4. Repeat CXR PRN 5. Chest PT/NT suctioning 6. Cont. TFs; mentation and breathing need to improve before taking PO 7. DVT PPx 8. Change to Prednisone soon 9. PT/OT 10. Try to wean to nasal cannula 11. Complex decision-making 12. BIPAP QHS No family present; prognosis remains guarded Subjective Date of service: 06/15/19 Principal diagnosis: HF; acute hypoxemic resp failure, SIRS, CARLA Interval history: Awake, alert. Congestion better with stronger cough. No new complaints. Remains on VM. Active Medications Albumin Human (Alburx 25% (Albumin)) 25 gm IV ARIANE PRN PRN Reason: Hypotension Lipase/Protease/Amylase ([place] Dr 10,500 Unit) 1 each FEEDTUBE PRN PRN PRN Reason: For Clogged Feeding Tube Clonidine HCl (Catapres-Tts Patch) 0.3 mg TD Lao [facility] Last Admin: 06/13/19 20:28 Dose: 0.3 mg Documented by: Dextrose (D50w (25gm) Vial) 50 gm IV Q30MIN PRN; Protocol PRN Reason: Hypoglycemia Enoxaparin Sodium (Enoxaparin) 40 mg SUB-Q QDAY [facility] Last Admin: 06/15/19 10:07 Dose: 40 mg Documented by: Famotidine (Pepcid) 20 mg PO DAILY [facility] Last Admin: 06/15/19 10:09 Dose: 20 mg Documented by: Furosemide (Lasix) 20 mg PO DAILY@0600 [facility] Levetiracetam 750 mg/ Dextrose 107.5 mls @ 400 mls/hr IV Q12HR [facility] Stop: 06/15/19 23:59 Last Admin: 06/15/19 12:33 Dose: 400 mls/hr Documented by: Insulin Glargine (Lantus) 10 units SUB-Q QHS [facility] Insulin Human Lispro (Humalog) 0 unit SUB-Q Q6HR VICKEY; Protocol Last Admin: 06/15/19 12:32 Dose: 4 unit Documented by: Labetalol HCl (Labetalol) 10 mg IV Q4H PRN PRN Reason: BP >170/105; hold for HR <60 Last Admin: 06/12/19 01:20 Dose: 10 mg Documented by: Labetalol HCl (Labetalol) 200 mg PO Q8HR [facility] Last Admin: 06/15/19 15:21 Dose: 200 mg Documented by: Levetiracetam (Keppra) 750 mg PO BID [facility] Methylprednisolone Sodium Succinate (Solu-Medrol) 20 mg IV Q8H [facility] Last Admin: 06/15/19 10:09 Dose: 20 mg Documented by: Minoxidil (Loniten) 2.5 mg PO BID [facility] Last Admin: 06/15/19 10:09 Dose: 2.5 mg Documented by: Simple Syrup (Simple Syrup) 15 ml FEEDTUBE PRN PRN PRN Reason: Hypoglycemia Simple Syrup (Simple Syrup) 30 ml FEEDTUBE PRN PRN PRN Reason: Hypoglycemia Sodium Bicarbonate (Sodium Bicarbonate) 325 mg FEEDTUBE PRN PRN PRN Reason: For Clogged Feeding Tube Objective Vital Signs - 12hr 06/15/19 06/15/19 06/15/19 04:00 05:01 06:00 Temperature Pulse Rate 97 H 87 102 H Pulse Rate [ From Monitor] Respiratory 16 19 17 Rate Blood Pressure 135/66 163/72 147/73 O2 Sat by Pulse 100 97 97 Oximetry 06/15/19 06/15/19 06/15/19 07:00 07:40 08:00 Temperature 99.1 F Pulse Rate 99 H 100 H 96 H Pulse Rate [ 93 H From Monitor] Respiratory 21 15 Rate Blood Pressure 157/79 157/79 168/75 O2 Sat by Pulse 100 100 Oximetry 06/15/19 06/15/19 06/15/19 08:27 09:01 10:00 Temperature Pulse Rate 92 H Pulse Rate [ From Monitor] Respiratory 20 Rate Blood Pressure 118/57 125/65 O2 Sat by Pulse 100 100 98 Oximetry 06/15/19 06/15/19 06/15/19 11:31 12:00 13:00 Temperature 98.8 F Pulse Rate 95 H 95 H Pulse Rate [ 91 H From Monitor] Respiratory 25 H 22 Rate Blood Pressure 137/62 144/54 139/70 O2 Sat by Pulse 100 100 98 Oximetry 06/15/19 15:21 Temperature Pulse Rate 103 H Pulse Rate [ From Monitor] Respiratory Rate Blood Pressure 120/60 O2 Sat by Pulse Oximetry Constitutional: no acute distress, other (morbidly obese male, extubated) Eyes: non-icteric ENT: oropharynx moist Neck: other (extremely large in circumference) Effort: normal Ascultation: Bilateral: diminished breath sounds (secondary to body habitus), rhonchi Cardiovascular: regular rate and rhythm (no mrg) Gastrointestinal: normoactive bowel sounds, soft, non-tender, other (obese) Integumentary: other (L hand is wrapped) Extremities: no cyanosis, pink and warm, other (1+ generalized edema) Neurologic: normal mental status, non-focal exam Psychiatric: mood appropriate, affect normal CBC and BMP: 06/12/19 03:21 06/15/19 04:05 ABG, PT/INR, D-dimer: ABG POC ABG pH 7.462 (7.35-7.45) H 06/05/19 03:52 ABG pH 7.480 pH Units (7.350-7.450) H 06/07/19 04:30 POC ABG pCO2 39.8 (35-45) 06/05/19 03:52 ABG pCO2 37.4 mm Hg 06/07/19 04:30 POC ABG pO2 86 (80-105) 06/05/19 03:52 ABG pO2 77.0 mm Hg (80.0-90.0) L 06/07/19 04:30 POC ABG HCO3 28.4 (22-26 mml/L) 06/05/19 03:52 POC ABG Total CO2 30 (23-27mmol/L) 06/05/19 03:52 POC ABG O2 Sat 97 06/05/19 03:52 ABG O2 Saturation 96.7 % (95.0-99.0) 06/07/19 04:30 PT/INR, D-dimer PT 15.4 Sec. (12.2-14.9) H 05/01/19 Unknown INR 1.23 (0.87-1.13) H 05/01/19 Unknown Abnormal lab findings: Abnormal Labs 05/01/19 05/01/19 05/01/19 17:50 19:26 22:36 WBC RBC Hgb Hct MCV MCH MCHC RDW Lymph % (Auto) [place] % (Auto) Eos % (Auto) Lymph # [place] # Eos # Seg Neutrophils % Seg Neuts % (Manual) Lymphocytes % (Manual) Monocytes % (Manual) Eosinophils % (Manual) Nucleated RBC % Seg Neutrophils # Seg Neutrophils # Man Lymphocytes # (Manual) Monocytes # (Manual) Eosinophils # (Manual) PT INR APTT POC ABG pH 7.272 L 7.331 L ABG pH POC ABG pCO2 52.8 H POC ABG pO2 ABG pO2 ABG HCO3 ABG O2 Saturation ABG Base Excess ABG Hemoglobin Oxyhemoglobin Sodium 136 L Potassium 6.5 H* Chloride 97.2 L Carbon Dioxide BUN 60 H Creatinine Glucose 113 H POC Glucose Uric Acid Calcium Phosphorus Magnesium 2.40 H AST 139 H ALT 154 H Total Creatine Kinase CK-MB (CK-2) Troponin T NT-Pro-B Natriuret Pep Total Protein Albumin 3.8 L Triglycerides HDL Cholesterol Urine WBC (Auto) Urine Creatinine Urine Total Protein Vancomycin Trough 05/01/19 05/01/19 05/01/19 Unknown Unknown Unknown WBC 16.1 H RBC Hgb Hct MCV MCH MCHC RDW 17.2 H Lymph % (Auto) [place] % (Auto) 9.6 H Eos % (Auto) Lymph # [place] # 1.5 H Eos # Seg Neutrophils % 73.0 H Seg Neuts % (Manual) Lymphocytes % (Manual) Monocytes % (Manual) Eosinophils % (Manual) Nucleated RBC % Seg Neutrophils # 11.7 H Seg Neutrophils # Man Lymphocytes # (Manual) Monocytes # (Manual) Eosinophils # (Manual) PT 15.4 H INR 1.23 H APTT 22.7 L POC ABG pH ABG pH POC ABG pCO2 POC ABG pO2 ABG pO2 ABG HCO3 ABG O2 Saturation ABG Base Excess ABG Hemoglobin Oxyhemoglobin Sodium Potassium Chloride Carbon Dioxide BUN Creatinine Glucose POC Glucose Uric Acid Calcium Phosphorus Magnesium AST ALT Total Creatine Kinase CK-MB (CK-2) Troponin T NT-Pro-B Natriuret Pep 6831 H Total Protein Albumin Triglycerides HDL Cholesterol Urine WBC (Auto) Urine Creatinine Urine Total Protein Vancomycin Trough 05/01/19 05/02/19 05/02/19 Unknown 00:06 00:06 WBC RBC Hgb Hct MCV MCH MCHC RDW Lymph % (Auto) [place] % (Auto) Eos % (Auto) Lymph # [place] # Eos # Seg Neutrophils % Seg Neuts % (Manual) Lymphocytes % (Manual) Monocytes % (Manual) Eosinophils % (Manual) Nucleated RBC % Seg Neutrophils # Seg Neutrophils # Man Lymphocytes # (Manual) Monocytes # (Manual) Eosinophils # (Manual) PT INR APTT POC ABG pH ABG pH POC ABG pCO2 POC ABG pO2 ABG pO2 ABG HCO3 ABG O2 Saturation ABG Base Excess ABG Hemoglobin Oxyhemoglobin Sodium Potassium Chloride Carbon Dioxide BUN Creatinine Glucose POC Glucose Uric Acid Calcium Phosphorus 4.90 H Magnesium AST ALT Total Creatine Kinase 226 H CK-MB (CK-2) 5.7 H Troponin T 0.044 H NT-Pro-B Natriuret Pep Total Protein Albumin Triglycerides 182 H HDL Cholesterol 18 L Urine WBC (Auto) Urine Creatinine Urine Total Protein Vancomycin Trough 05/02/19 05/02/19 05/02/19 02:08 04:40 04:41 WBC 17.6 H RBC Hgb Hct MCV MCH 27 L MCHC RDW 17.4 H Lymph % (Auto) 10.2 L [place] % (Auto) 11.0 H Eos % (Auto) Lymph # [place] # 1.9 H Eos # Seg Neutrophils % 78.0 H Seg Neuts % (Manual) Lymphocytes % (Manual) Monocytes % (Manual) Eosinophils % (Manual) Nucleated RBC % Seg Neutrophils # 13.8 H Seg Neutrophils # Man Lymphocytes # (Manual) Monocytes # (Manual) Eosinophils # (Manual) PT INR APTT POC ABG pH ABG pH POC ABG pCO2 46.8 H POC ABG pO2 63 L ABG pO2 ABG HCO3 ABG O2 Saturation ABG Base Excess ABG Hemoglobin Oxyhemoglobin Sodium Potassium Chloride 96.3 L Carbon Dioxide BUN 63 H Creatinine 1.7 H Glucose POC Glucose Uric Acid Calcium Phosphorus Magnesium AST ALT Total Creatine Kinase CK-MB (CK-2) Troponin T NT-Pro-B Natriuret Pep Total Protein Albumin Triglycerides HDL Cholesterol Urine WBC (Auto) Urine Creatinine Urine Total Protein Vancomycin Trough 05/02/19 05/02/19 05/02/19 04:41 04:41 16:05 WBC RBC Hgb Hct MCV MCH MCHC RDW Lymph % (Auto) [place] % (Auto) Eos % (Auto) Lymph # [place] # Eos # Seg Neutrophils % Seg Neuts % (Manual) Lymphocytes % (Manual) Monocytes % (Manual) Eosinophils % (Manual) Nucleated RBC % Seg Neutrophils # Seg Neutrophils # Man Lymphocytes # (Manual) Monocytes # (Manual) Eosinophils # (Manual) PT INR APTT POC ABG pH ABG pH POC ABG pCO2 POC ABG pO2 ABG pO2 66.6 L ABG HCO3 31.9 H ABG O2 Saturation 92.5 L ABG Base Excess 5.8 H ABG Hemoglobin 13.3 L Oxyhemoglobin 90.6 L Sodium Potassium Chloride 97.2 L Carbon Dioxide BUN 61 H Creatinine 1.8 H Glucose POC Glucose Uric Acid Calcium Phosphorus Magnesium AST ALT Total Creatine Kinase CK-MB (CK-2) 5.2 H Troponin T 0.067 H D NT-Pro-B Natriuret Pep Total Protein Albumin Triglycerides HDL Cholesterol Urine WBC (Auto) Urine Creatinine Urine Total Protein Vancomycin Trough 05/02/19 05/03/19 05/03/19 20:39 04:35 05:05 WBC 11.8 H RBC Hgb Hct MCV MCH 27 L MCHC 31 L RDW 17.2 H Lymph % (Auto) [place] % (Auto) Eos % (Auto) Lymph # [place] # Eos # Seg Neutrophils % Seg Neuts % (Manual) Lymphocytes % (Manual) Monocytes % (Manual) Eosinophils % (Manual) Nucleated RBC % Seg Neutrophils # Seg Neutrophils # Man Lymphocytes # (Manual) Monocytes # (Manual) Eosinophils # (Manual) PT INR APTT POC ABG pH ABG pH POC ABG pCO2 53.6 H 54.0 H POC ABG pO2 55 L 63 L ABG pO2 ABG HCO3 ABG O2 Saturation ABG Base Excess ABG Hemoglobin Oxyhemoglobin Sodium Potassium Chloride Carbon Dioxide BUN Creatinine Glucose POC Glucose Uric Acid Calcium Phosphorus Magnesium AST ALT Total Creatine Kinase CK-MB (CK-2) Troponin T NT-Pro-B Natriuret Pep Total Protein Albumin Triglycerides HDL Cholesterol Urine WBC (Auto) Urine Creatinine Urine Total Protein Vancomycin Trough 05/03/19 05/03/19 05/03/19 05:05 10:55 16:48 WBC RBC Hgb Hct MCV MCH MCHC RDW Lymph % (Auto) [place] % (Auto) Eos % (Auto) Lymph # [place] # Eos # Seg Neutrophils % Seg Neuts % (Manual) Lymphocytes % (Manual) Monocytes % (Manual) Eosinophils % (Manual) Nucleated RBC % Seg Neutrophils # Seg Neutrophils # Man Lymphocytes # (Manual) Monocytes # (Manual) Eosinophils # (Manual) PT INR APTT POC ABG pH 7.604 H ABG pH POC ABG pCO2 POC ABG pO2 58 L ABG pO2 ABG HCO3 ABG O2 Saturation ABG Base Excess ABG Hemoglobin Oxyhemoglobin Sodium Potassium Chloride Carbon Dioxide BUN 52 H Creatinine 1.9 H Glucose 103 H POC Glucose Uric Acid Calcium Phosphorus Magnesium AST ALT Total Creatine Kinase CK-MB (CK-2) Troponin T NT-Pro-B Natriuret Pep Total Protein Albumin Triglycerides HDL Cholesterol Urine WBC (Auto) 33.0 H Urine Creatinine Urine Total Protein Vancomycin Trough 05/04/19 05/04/19 05/04/19 04:49 06:50 06:50 WBC 16.0 H RBC Hgb Hct MCV MCH 27 L MCHC 31 L RDW 17.8 H Lymph % (Auto) [place] % (Auto) Eos % (Auto) Lymph # [place] # Eos # Seg Neutrophils % Seg Neuts % (Manual) Lymphocytes % (Manual) Monocytes % (Manual) Eosinophils % (Manual) Nucleated RBC % Seg Neutrophils # Seg Neutrophils # Man Lymphocytes # (Manual) Monocytes # (Manual) Eosinophils # (Manual) PT INR APTT POC ABG pH 7.273 L ABG pH POC ABG pCO2 POC ABG pO2 ABG pO2 ABG HCO3 ABG O2 Saturation ABG Base Excess ABG Hemoglobin Oxyhemoglobin Sodium 148 H Potassium 5.5 H Chloride Carbon Dioxide BUN 53 H Creatinine 3.3 H D Glucose 106 H POC Glucose Uric Acid Calcium 8.3 L Phosphorus Magnesium AST ALT Total Creatine Kinase CK-MB (CK-2) Troponin T NT-Pro-B Natriuret Pep Total Protein Albumin Triglycerides HDL Cholesterol Urine WBC (Auto) Urine Creatinine Urine Total Protein Vancomycin Trough 05/05/19 05/05/19 05/05/19 00:05 04:30 05:00 WBC RBC Hgb Hct MCV MCH MCHC RDW Lymph % (Auto) [place] % (Auto) Eos % (Auto) Lymph # [place] # Eos # Seg Neutrophils % Seg Neuts % (Manual) Lymphocytes % (Manual) Monocytes % (Manual) Eosinophils % (Manual) Nucleated RBC % Seg Neutrophils # Seg Neutrophils # Man Lymphocytes # (Manual) Monocytes # (Manual) Eosinophils # (Manual) PT INR APTT POC ABG pH 7.225 L ABG pH POC ABG pCO2 > 70 H POC ABG pO2 ABG pO2 ABG HCO3 ABG O2 Saturation ABG Base Excess ABG Hemoglobin Oxyhemoglobin Sodium 151 H Potassium 5.1 H Chloride Carbon Dioxide BUN 64 H Creatinine 3.5 H Glucose 117 H POC Glucose 141 H Uric Acid Calcium 7.5 L Phosphorus Magnesium AST 93 H ALT 65 H Total Creatine Kinase CK-MB (CK-2) Troponin T NT-Pro-B Natriuret Pep Total Protein Albumin 2.9 L Triglycerides HDL Cholesterol Urine WBC (Auto) Urine Creatinine Urine Total Protein Vancomycin Trough 05/05/19 05/05/19 05/05/19 05:00 12:02 17:46 WBC 12.0 H RBC Hgb 11.3 L Hct MCV MCH 27 L MCHC 30 L RDW 18.4 H Lymph % (Auto) 7.9 L [place] % (Auto) 10.2 H Eos % (Auto) Lymph # 1.0 L [place] # 1.2 H Eos # Seg Neutrophils % 80.8 H Seg Neuts % (Manual) Lymphocytes % (Manual) Monocytes % (Manual) Eosinophils % (Manual) Nucleated RBC % Seg Neutrophils # 9.7 H Seg Neutrophils # Man Lymphocytes # (Manual) Monocytes # (Manual) Eosinophils # (Manual) PT INR APTT POC ABG pH ABG pH POC ABG pCO2 POC ABG pO2 ABG pO2 ABG HCO3 ABG O2 Saturation ABG Base Excess ABG Hemoglobin Oxyhemoglobin Sodium Potassium Chloride Carbon Dioxide BUN Creatinine Glucose POC Glucose 125 H 112 H Uric Acid Calcium Phosphorus Magnesium AST ALT Total Creatine Kinase CK-MB (CK-2) Troponin T NT-Pro-B Natriuret Pep Total Protein Albumin Triglycerides HDL Cholesterol Urine WBC (Auto) Urine Creatinine Urine Total Protein Vancomycin Trough 05/05/19 05/06/19 05/06/19 23:42 03:58 04:45 WBC 11.4 H RBC Hgb 10.7 L Hct 34.2 L MCV MCH 27 L MCHC 31 L RDW 16.9 H Lymph % (Auto) [place] % (Auto) Eos % (Auto) Lymph # [place] # Eos # Seg Neutrophils % Seg Neuts % (Manual) Lymphocytes % (Manual) Monocytes % (Manual) Eosinophils % (Manual) Nucleated RBC % Seg Neutrophils # Seg Neutrophils # Man Lymphocytes # (Manual) Monocytes # (Manual) Eosinophils # (Manual) PT INR APTT POC ABG pH ABG pH POC ABG pCO2 62.4 H POC ABG pO2 111 H ABG pO2 ABG HCO3 ABG O2 Saturation ABG Base Excess ABG Hemoglobin Oxyhemoglobin Sodium Potassium Chloride Carbon Dioxide BUN Creatinine Glucose POC Glucose 128 H Uric Acid Calcium Phosphorus Magnesium AST ALT Total Creatine Kinase CK-MB (CK-2) Troponin T NT-Pro-B Natriuret Pep Total Protein Albumin Triglycerides HDL Cholesterol Urine WBC (Auto) Urine Creatinine Urine Total Protein Vancomycin Trough 05/06/19 05/06/19 05/06/19 04:45 05:33 12:30 WBC RBC Hgb Hct MCV MCH MCHC RDW Lymph % (Auto) [place] % (Auto) Eos % (Auto) Lymph # [place] # Eos # Seg Neutrophils % Seg Neuts % (Manual) Lymphocytes % (Manual) Monocytes % (Manual) Eosinophils % (Manual) Nucleated RBC % Seg Neutrophils # Seg Neutrophils # Man Lymphocytes # (Manual) Monocytes # (Manual) Eosinophils # (Manual) PT INR APTT POC ABG pH ABG pH POC ABG pCO2 POC ABG pO2 ABG pO2 ABG HCO3 ABG O2 Saturation ABG Base Excess ABG Hemoglobin Oxyhemoglobin Sodium 149 H Potassium Chloride Carbon Dioxide 31 H BUN 67 H Creatinine 3.2 H Glucose 125 H POC Glucose 117 H 116 H Uric Acid Calcium 7.5 L Phosphorus Magnesium AST ALT Total Creatine Kinase CK-MB (CK-2) Troponin T NT-Pro-B Natriuret Pep Total Protein Albumin Triglycerides HDL Cholesterol Urine WBC (Auto) Urine Creatinine Urine Total Protein Vancomycin Trough 05/06/19 05/06/19 05/07/19 18:34 23:16 05:22 WBC RBC Hgb Hct MCV MCH MCHC RDW Lymph % (Auto) [place] % (Auto) Eos % (Auto) Lymph # [place] # Eos # Seg Neutrophils % Seg Neuts % (Manual) Lymphocytes % (Manual) Monocytes % (Manual) Eosinophils % (Manual) Nucleated RBC % Seg Neutrophils # Seg Neutrophils # Man Lymphocytes # (Manual) Monocytes # (Manual) Eosinophils # (Manual) PT INR APTT POC ABG pH ABG pH POC ABG pCO2 POC ABG pO2 ABG pO2 ABG HCO3 ABG O2 Saturation ABG Base Excess ABG Hemoglobin Oxyhemoglobin Sodium Potassium Chloride Carbon Dioxide BUN Creatinine Glucose POC Glucose 128 H 143 H 166 H Uric Acid Calcium Phosphorus Magnesium AST ALT Total Creatine Kinase CK-MB (CK-2) Troponin T NT-Pro-B Natriuret Pep Total Protein Albumin Triglycerides HDL Cholesterol Urine WBC (Auto) Urine Creatinine Urine Total Protein Vancomycin Trough 05/07/19 05/07/19 05/07/19 06:33 07:03 09:35 WBC RBC Hgb Hct MCV MCH MCHC RDW Lymph % (Auto) [place] % (Auto) Eos % (Auto) Lymph # [place] # Eos # Seg Neutrophils % Seg Neuts % (Manual) Lymphocytes % (Manual) Monocytes % (Manual) Eosinophils % (Manual) Nucleated RBC % Seg Neutrophils # Seg Neutrophils # Man Lymphocytes # (Manual) Monocytes # (Manual) Eosinophils # (Manual) PT INR APTT POC ABG pH 7.263 L 7.288 L ABG pH POC ABG pCO2 POC ABG pO2 51 L 56 L ABG pO2 ABG HCO3 ABG O2 Saturation ABG Base Excess ABG Hemoglobin Oxyhemoglobin Sodium Potassium Chloride Carbon Dioxide BUN 76 H Creatinine 3.2 H Glucose 147 H POC Glucose Uric Acid Calcium 7.9 L Phosphorus Magnesium AST ALT Total Creatine Kinase CK-MB (CK-2) Troponin T NT-Pro-B Natriuret Pep Total Protein Albumin Triglycerides HDL Cholesterol Urine WBC (Auto) Urine Creatinine Urine Total Protein Vancomycin Trough 05/07/19 05/07/19 05/07/19 09:35 12:17 13:45 WBC 13.4 H RBC Hgb 11.6 L Hct MCV MCH 27 L MCHC 31 L RDW 17.5 H Lymph % (Auto) [place] % (Auto) Eos % (Auto) Lymph # [place] # Eos # Seg Neutrophils % Seg Neuts % (Manual) Lymphocytes % (Manual) Monocytes % (Manual) Eosinophils % (Manual) Nucleated RBC % Seg Neutrophils # Seg Neutrophils # Man Lymphocytes # (Manual) Monocytes # (Manual) Eosinophils # (Manual) PT INR APTT POC ABG pH ABG pH POC ABG pCO2 POC ABG pO2 ABG pO2 ABG HCO3 ABG O2 Saturation ABG Base Excess ABG Hemoglobin Oxyhemoglobin Sodium Potassium Chloride Carbon Dioxide BUN Creatinine Glucose POC Glucose 130 H Uric Acid 18.0 H Calcium Phosphorus Magnesium AST ALT Total Creatine Kinase CK-MB (CK-2) Troponin T NT-Pro-B Natriuret Pep Total Protein Albumin Triglycerides HDL Cholesterol Urine WBC (Auto) Urine Creatinine Urine Total Protein Vancomycin Trough 05/07/19 05/07/19 05/08/19 17:39 22:40 05:06 WBC RBC Hgb Hct MCV MCH MCHC RDW Lymph % (Auto) [place] % (Auto) Eos % (Auto) Lymph # [place] # Eos # Seg Neutrophils % Seg Neuts % (Manual) Lymphocytes % (Manual) Monocytes % (Manual) Eosinophils % (Manual) Nucleated RBC % Seg Neutrophils # Seg Neutrophils # Man Lymphocytes # (Manual) Monocytes # (Manual) Eosinophils # (Manual) PT INR APTT POC ABG pH ABG pH POC ABG pCO2 POC ABG pO2 ABG pO2 ABG HCO3 ABG O2 Saturation ABG Base Excess ABG Hemoglobin Oxyhemoglobin Sodium Potassium Chloride Carbon Dioxide BUN Creatinine Glucose POC Glucose 116 H 148 H Uric Acid Calcium Phosphorus Magnesium AST ALT Total Creatine Kinase CK-MB (CK-2) Troponin T NT-Pro-B Natriuret Pep Total Protein Albumin Triglycerides HDL Cholesterol Urine WBC (Auto) Urine Creatinine 292.8 H Urine Total Protein 269 H Vancomycin Trough 05/08/19 05/08/19 05/08/19 05:32 11:28 13:48 WBC RBC Hgb Hct MCV MCH MCHC RDW Lymph % (Auto) [place] % (Auto) Eos % (Auto) Lymph # [place] # Eos # Seg Neutrophils % Seg Neuts % (Manual) Lymphocytes % (Manual) Monocytes % (Manual) Eosinophils % (Manual) Nucleated RBC % Seg Neutrophils # Seg Neutrophils # Man Lymphocytes # (Manual) Monocytes # (Manual) Eosinophils # (Manual) PT INR APTT POC ABG pH ABG pH POC ABG pCO2 45.4 H POC ABG pO2 64 L ABG pO2 ABG HCO3 ABG O2 Saturation ABG Base Excess ABG Hemoglobin Oxyhemoglobin Sodium Potassium Chloride Carbon Dioxide BUN 73 H Creatinine 2.7 H Glucose 127 H POC Glucose 107 H Uric Acid Calcium 7.6 L Phosphorus Magnesium AST ALT Total Creatine Kinase CK-MB (CK-2) Troponin T NT-Pro-B Natriuret Pep Total Protein Albumin Triglycerides HDL Cholesterol Urine WBC (Auto) Urine Creatinine Urine Total Protein Vancomycin Trough 05/08/19 05/09/19 05/09/19 17:48 04:50 04:53 WBC RBC 3.07 L Hgb 8.5 L D Hct 29.3 L D MCV 96 H MCH MCHC 29 L RDW 18.1 H Lymph % (Auto) [place] % (Auto) Eos % (Auto) Lymph # [place] # Eos # Seg Neutrophils % Seg Neuts % (Manual) Lymphocytes % (Manual) Monocytes % (Manual) Eosinophils % (Manual) Nucleated RBC % Seg Neutrophils # Seg Neutrophils # Man Lymphocytes # (Manual) Monocytes # (Manual) Eosinophils # (Manual) PT INR APTT POC ABG pH 7.316 L ABG pH POC ABG pCO2 66.0 H POC ABG pO2 69 L ABG pO2 ABG HCO3 ABG O2 Saturation ABG Base Excess ABG Hemoglobin Oxyhemoglobin Sodium Potassium Chloride Carbon Dioxide BUN Creatinine Glucose POC Glucose 155 H Uric Acid Calcium Phosphorus Magnesium AST ALT Total Creatine Kinase CK-MB (CK-2) Troponin T NT-Pro-B Natriuret Pep Total Protein Albumin Triglycerides HDL Cholesterol Urine WBC (Auto) Urine Creatinine Urine Total Protein Vancomycin Trough 05/09/19 05/09/19 05/09/19 05:46 07:24 12:10 WBC RBC Hgb Hct MCV MCH MCHC RDW Lymph % (Auto) [place] % (Auto) Eos % (Auto) Lymph # [place] # Eos # Seg Neutrophils % Seg Neuts % (Manual) Lymphocytes % (Manual) Monocytes % (Manual) Eosinophils % (Manual) Nucleated RBC % Seg Neutrophils # Seg Neutrophils # Man Lymphocytes # (Manual) Monocytes # (Manual) Eosinophils # (Manual) PT INR APTT POC ABG pH ABG pH POC ABG pCO2 POC ABG pO2 ABG pO2 ABG HCO3 ABG O2 Saturation ABG Base Excess ABG Hemoglobin Oxyhemoglobin Sodium Potassium Chloride Carbon Dioxide BUN 73 H Creatinine 2.4 H Glucose 153 H POC Glucose 123 H 148 H Uric Acid Calcium 8.2 L Phosphorus Magnesium AST 45 H ALT Total Creatine Kinase CK-MB (CK-2) Troponin T NT-Pro-B Natriuret Pep Total Protein 6.0 L Albumin 1.9 L Triglycerides HDL Cholesterol Urine WBC (Auto) Urine Creatinine Urine Total Protein Vancomycin Trough 05/09/19 05/09/19 05/10/19 18:23 23:26 04:52 WBC RBC Hgb Hct MCV MCH MCHC RDW Lymph % (Auto) [place] % (Auto) Eos % (Auto) Lymph # [place] # Eos # Seg Neutrophils % Seg Neuts % (Manual) Lymphocytes % (Manual) Monocytes % (Manual) Eosinophils % (Manual) Nucleated RBC % Seg Neutrophils # Seg Neutrophils # Man Lymphocytes # (Manual) Monocytes # (Manual) Eosinophils # (Manual) PT INR APTT POC ABG pH 7.305 L ABG pH POC ABG pCO2 62.6 H POC ABG pO2 ABG pO2 ABG HCO3 ABG O2 Saturation ABG Base Excess ABG Hemoglobin Oxyhemoglobin Sodium Potassium Chloride Carbon Dioxide BUN Creatinine Glucose POC Glucose 147 H 121 H Uric Acid Calcium Phosphorus Magnesium AST ALT Total Creatine Kinase CK-MB (CK-2) Troponin T NT-Pro-B Natriuret Pep Total Protein Albumin Triglycerides HDL Cholesterol Urine WBC (Auto) Urine Creatinine Urine Total Protein Vancomycin Trough 05/10/19 05/10/19 05/10/19 05:00 05:00 05:50 WBC RBC Hgb 10.3 L Hct 33.7 L MCV MCH 27 L MCHC 31 L RDW 17.0 H Lymph % (Auto) [place] % (Auto) Eos % (Auto) Lymph # [place] # Eos # Seg Neutrophils % Seg Neuts % (Manual) Lymphocytes % (Manual) Monocytes % (Manual) Eosinophils % (Manual) Nucleated RBC % Seg Neutrophils # Seg Neutrophils # Man Lymphocytes # (Manual) Monocytes # (Manual) Eosinophils # (Manual) PT INR APTT POC ABG pH ABG pH POC ABG pCO2 POC ABG pO2 ABG pO2 ABG HCO3 ABG O2 Saturation ABG Base Excess ABG Hemoglobin Oxyhemoglobin Sodium 147 H Potassium Chloride Carbon Dioxide BUN 70 H Creatinine 2.6 H Glucose 155 H POC Glucose 158 H Uric Acid Calcium 8.2 L Phosphorus Magnesium AST ALT Total Creatine Kinase CK-MB (CK-2) Troponin T NT-Pro-B Natriuret Pep Total Protein 6.1 L Albumin 2.5 L Triglycerides HDL Cholesterol Urine WBC (Auto) Urine Creatinine Urine Total Protein Vancomycin Trough 05/10/19 05/11/19 05/11/19 13:14 07:26 11:40 WBC RBC Hgb Hct MCV MCH MCHC RDW Lymph % (Auto) Greene % (Auto) Eos % (Auto) Lymph # Greene # Eos # Seg Neutrophils % Seg Neuts % (Manual) Lymphocytes % (Manual) Monocytes % (Manual) Eosinophils % (Manual) Nucleated RBC % Seg Neutrophils # Seg Neutrophils # Man Lymphocytes # (Manual) Monocytes # (Manual) Eosinophils # (Manual) PT INR APTT POC ABG pH ABG pH POC ABG pCO2 48.0 H POC ABG pO2 58 L ABG pO2 ABG HCO3 ABG O2 Saturation ABG Base Excess ABG Hemoglobin Oxyhemoglobin Sodium 147 H Potassium Chloride 107.2 H Carbon Dioxide BUN 67 H Creatinine 2.6 H Glucose 121 H POC Glucose 159 H Uric Acid Calcium Phosphorus Magnesium AST ALT Total Creatine Kinase CK-MB (CK-2) Troponin T NT-Pro-B Natriuret Pep Total Protein Albumin Triglycerides HDL Cholesterol Urine WBC (Auto) Urine Creatinine Urine Total Protein Vancomycin Trough 05/11/19 05/11/19 05/12/19 18:13 23:46 04:40 WBC RBC Hgb Hct MCV MCH MCHC RDW Lymph % (Auto) [place] % (Auto) Eos % (Auto) Lymph # [place] # Eos # Seg Neutrophils % Seg Neuts % (Manual) Lymphocytes % (Manual) Monocytes % (Manual) Eosinophils % (Manual) Nucleated RBC % Seg Neutrophils # Seg Neutrophils # Man Lymphocytes # (Manual) Monocytes # (Manual) Eosinophils # (Manual) PT INR APTT POC ABG pH ABG pH 7.264 L POC ABG pCO2 POC ABG pO2 ABG pO2 66.8 L ABG HCO3 31.0 H ABG O2 Saturation 92.0 L ABG Base Excess ABG Hemoglobin 10.3 L Oxyhemoglobin 90.1 L Sodium Potassium Chloride Carbon Dioxide BUN Creatinine Glucose POC Glucose 120 H 121 H Uric Acid Calcium Phosphorus Magnesium AST ALT Total Creatine Kinase CK-MB (CK-2) Troponin T NT-Pro-B Natriuret Pep Total Protein Albumin Triglycerides HDL Cholesterol Urine WBC (Auto) Urine Creatinine Urine Total Protein Vancomycin Trough 05/12/19 05/12/19 05/12/19 04:45 04:45 11:14 WBC RBC Hgb 10.2 L Hct 32.4 L MCV MCH MCHC 31 L RDW 17.2 H Lymph % (Auto) [place] % (Auto) Eos % (Auto) Lymph # [place] # Eos # Seg Neutrophils % Seg Neuts % (Manual) Lymphocytes % (Manual) Monocytes % (Manual) Eosinophils % (Manual) Nucleated RBC % Seg Neutrophils # Seg Neutrophils # Man Lymphocytes # (Manual) Monocytes # (Manual) Eosinophils # (Manual) PT INR APTT POC ABG pH 7.284 L ABG pH POC ABG pCO2 67.8 H POC ABG pO2 ABG pO2 ABG HCO3 ABG O2 Saturation ABG Base Excess ABG Hemoglobin Oxyhemoglobin Sodium Potassium Chloride Carbon Dioxide BUN 63 H Creatinine 2.4 H Glucose 110 H POC Glucose Uric Acid Calcium Phosphorus Magnesium AST ALT Total Creatine Kinase CK-MB (CK-2) Troponin T NT-Pro-B Natriuret Pep Total Protein Albumin Triglycerides HDL Cholesterol Urine WBC (Auto) Urine Creatinine Urine Total Protein Vancomycin Trough 05/12/19 05/12/19 05/13/19 11:44 23:11 04:30 WBC RBC Hgb Hct MCV MCH MCHC RDW Lymph % (Auto) [place] % (Auto) Eos % (Auto) Lymph # [place] # Eos # Seg Neutrophils % Seg Neuts % (Manual) Lymphocytes % (Manual) Monocytes % (Manual) Eosinophils % (Manual) Nucleated RBC % Seg Neutrophils # Seg Neutrophils # Man Lymphocytes # (Manual) Monocytes # (Manual) Eosinophils # (Manual) PT INR APTT POC ABG pH ABG pH 7.288 L POC ABG pCO2 POC ABG pO2 ABG pO2 109.7 H ABG HCO3 30.9 H ABG O2 Saturation ABG Base Excess 3.2 H ABG Hemoglobin 9.6 L Oxyhemoglobin Sodium Potassium Chloride Carbon Dioxide BUN Creatinine Glucose POC Glucose 126 H 147 H Uric Acid Calcium Phosphorus Magnesium AST ALT Total Creatine Kinase CK-MB (CK-2) Troponin T NT-Pro-B Natriuret Pep Total Protein Albumin Triglycerides HDL Cholesterol Urine WBC (Auto) Urine Creatinine Urine Total Protein Vancomycin Trough 05/13/19 05/13/19 05/14/19 06:27 11:58 04:00 WBC RBC 3.16 L Hgb 9.3 L Hct 27.9 L MCV MCH MCHC RDW 17.1 H Lymph % (Auto) [place] % (Auto) Eos % (Auto) Lymph # [place] # Eos # Seg Neutrophils % Seg Neuts % (Manual) Lymphocytes % (Manual) Monocytes % (Manual) Eosinophils % (Manual) Nucleated RBC % Seg Neutrophils # Seg Neutrophils # Man Lymphocytes # (Manual) Monocytes # (Manual) Eosinophils # (Manual) PT INR APTT POC ABG pH ABG pH POC ABG pCO2 POC ABG pO2 ABG pO2 ABG HCO3 ABG O2 Saturation ABG Base Excess ABG Hemoglobin Oxyhemoglobin Sodium Potassium Chloride Carbon Dioxide BUN Creatinine Glucose POC Glucose 113 H 130 H Uric Acid Calcium Phosphorus Magnesium AST ALT Total Creatine Kinase CK-MB (CK-2) Troponin T NT-Pro-B Natriuret Pep Total Protein Albumin Triglycerides HDL Cholesterol Urine WBC (Auto) Urine Creatinine Urine Total Protein Vancomycin Trough 05/14/19 05/14/19 05/14/19 04:00 04:34 05:32 WBC RBC Hgb Hct MCV MCH MCHC RDW Lymph % (Auto) [place] % (Auto) Eos % (Auto) Lymph # [place] # Eos # Seg Neutrophils % Seg Neuts % (Manual) Lymphocytes % (Manual) Monocytes % (Manual) Eosinophils % (Manual) Nucleated RBC % Seg Neutrophils # Seg Neutrophils # Man Lymphocytes # (Manual) Monocytes # (Manual) Eosinophils # (Manual) PT INR APTT POC ABG pH 7.328 L ABG pH POC ABG pCO2 61.7 H POC ABG pO2 ABG pO2 ABG HCO3 ABG O2 Saturation ABG Base Excess ABG Hemoglobin Oxyhemoglobin Sodium 135 L D Potassium Chloride Carbon Dioxide BUN 57 H Creatinine 2.2 H Glucose 115 H POC Glucose 115 H Uric Acid Calcium 8.1 L Phosphorus Magnesium AST ALT Total Creatine Kinase CK-MB (CK-2) Troponin T NT-Pro-B Natriuret Pep Total Protein Albumin Triglycerides HDL Cholesterol Urine WBC (Auto) Urine Creatinine Urine Total Protein Vancomycin Trough 05/14/19 05/15/19 05/15/19 12:11 05:10 05:24 WBC RBC Hgb Hct MCV MCH MCHC RDW Lymph % (Auto) [place] % (Auto) Eos % (Auto) Lymph # [place] # Eos # Seg Neutrophils % Seg Neuts % (Manual) Lymphocytes % (Manual) Monocytes % (Manual) Eosinophils % (Manual) Nucleated RBC % Seg Neutrophils # Seg Neutrophils # Man Lymphocytes # (Manual) Monocytes # (Manual) Eosinophils # (Manual) PT INR APTT POC ABG pH ABG pH 7.342 L POC ABG pCO2 POC ABG pO2 ABG pO2 79.1 L ABG HCO3 28.2 H ABG O2 Saturation ABG Base Excess ABG Hemoglobin 7.0 L Oxyhemoglobin 94.4 L Sodium Potassium Chloride Carbon Dioxide BUN Creatinine Glucose POC Glucose 110 H 116 H Uric Acid Calcium Phosphorus Magnesium AST ALT Total Creatine Kinase CK-MB (CK-2) Troponin T NT-Pro-B Natriuret Pep Total Protein Albumin Triglycerides HDL Cholesterol Urine WBC (Auto) Urine Creatinine Urine Total Protein Vancomycin Trough 05/15/19 05/15/19 05/16/19 09:00 18:12 04:50 WBC RBC Hgb Hct MCV MCH MCHC RDW Lymph % (Auto) [place] % (Auto) Eos % (Auto) Lymph # [place] # Eos # Seg Neutrophils % Seg Neuts % (Manual) Lymphocytes % (Manual) Monocytes % (Manual) Eosinophils % (Manual) Nucleated RBC % Seg Neutrophils # Seg Neutrophils # Man Lymphocytes # (Manual) Monocytes # (Manual) Eosinophils # (Manual) PT INR APTT POC ABG pH ABG pH 7.250 L POC ABG pCO2 POC ABG pO2 ABG pO2 76.4 L ABG HCO3 ABG O2 Saturation 94.6 L ABG Base Excess -3.1 L ABG Hemoglobin 9.7 L Oxyhemoglobin 92.4 L Sodium Potassium Chloride Carbon Dioxide BUN Creatinine Glucose POC Glucose 110 H Uric Acid Calcium Phosphorus Magnesium AST ALT Total Creatine Kinase CK-MB (CK-2) Troponin T NT-Pro-B Natriuret Pep Total Protein Albumin Triglycerides HDL Cholesterol Urine WBC (Auto) Urine Creatinine Urine Total Protein Vancomycin Trough 20.5 H 05/16/19 05/16/19 05/17/19 05:50 05:50 04:20 WBC RBC 3.36 L 3.44 L Hgb 9.4 L 9.3 L Hct 29.1 L 29.7 L MCV MCH 27 L MCHC 31 L RDW 17.6 H 17.6 H Lymph % (Auto) [place] % (Auto) Eos % (Auto) Lymph # [place] # Eos # Seg Neutrophils % Seg Neuts % (Manual) 77.0 H Lymphocytes % (Manual) 5.0 L Monocytes % (Manual) Eosinophils % (Manual) 10.0 H Nucleated RBC % Seg Neutrophils # Seg Neutrophils # Man Lymphocytes # (Manual) 0.5 L Monocytes # (Manual) Eosinophils # (Manual) 0.9 H PT INR APTT POC ABG pH ABG pH POC ABG pCO2 POC ABG pO2 ABG pO2 ABG HCO3 ABG O2 Saturation ABG Base Excess ABG Hemoglobin Oxyhemoglobin Sodium Potassium Chloride Carbon Dioxide BUN 83 H Creatinine 4.4 H D Glucose 118 H POC Glucose Uric Acid Calcium Phosphorus Magnesium AST ALT Total Creatine Kinase CK-MB (CK-2) Troponin T NT-Pro-B Natriuret Pep Total Protein Albumin Triglycerides HDL Cholesterol Urine WBC (Auto) Urine Creatinine Urine Total Protein Vancomycin Trough 05/17/19 05/17/19 05/18/19 04:30 Unknown 01:50 WBC RBC 3.49 L Hgb 9.4 L Hct 30.0 L MCV MCH 27 L MCHC 31 L RDW 17.8 H Lymph % (Auto) 7.9 L [place] % (Auto) 15.4 H Eos % (Auto) 6.3 H Lymph # 0.7 L [place] # 1.4 H Eos # 0.6 H Seg Neutrophils % 70.2 H Seg Neuts % (Manual) Lymphocytes % (Manual) Monocytes % (Manual) Eosinophils % (Manual) Nucleated RBC % Seg Neutrophils # Seg Neutrophils # Man Lymphocytes # (Manual) Monocytes # (Manual) Eosinophils # (Manual) PT INR APTT POC ABG pH ABG pH 7.272 L POC ABG pCO2 POC ABG pO2 ABG pO2 75.7 L ABG HCO3 ABG O2 Saturation 93.8 L ABG Base Excess -3.0 L ABG Hemoglobin 7.8 L Oxyhemoglobin 91.6 L Sodium Potassium 5.2 H Chloride Carbon Dioxide BUN 96 H Creatinine 5.7 H Glucose 112 H POC Glucose Uric Acid Calcium Phosphorus Magnesium AST ALT Total Creatine Kinase CK-MB (CK-2) Troponin T NT-Pro-B Natriuret Pep Total Protein Albumin Triglycerides 173 H HDL Cholesterol Urine WBC (Auto) Urine Creatinine Urine Total Protein Vancomycin Trough 05/18/19 05/18/19 05/18/19 01:50 04:41 05:24 WBC RBC Hgb Hct MCV MCH MCHC RDW Lymph % (Auto) [place] % (Auto) Eos % (Auto) Lymph # [place] # Eos # Seg Neutrophils % Seg Neuts % (Manual) Lymphocytes % (Manual) Monocytes % (Manual) Eosinophils % (Manual) Nucleated RBC % Seg Neutrophils # Seg Neutrophils # Man Lymphocytes # (Manual) Monocytes # (Manual) Eosinophils # (Manual) PT INR APTT POC ABG pH 7.260 L ABG pH POC ABG pCO2 54.9 H POC ABG pO2 ABG pO2 ABG HCO3 ABG O2 Saturation ABG Base Excess ABG Hemoglobin Oxyhemoglobin Sodium Potassium 5.6 H Chloride Carbon Dioxide BUN 104 H Creatinine 6.6 H Glucose 107 H POC Glucose 106 H Uric Acid Calcium Phosphorus Magnesium AST ALT Total Creatine Kinase CK-MB (CK-2) Troponin T NT-Pro-B Natriuret Pep Total Protein Albumin Triglycerides HDL Cholesterol Urine WBC (Auto) Urine Creatinine Urine Total Protein Vancomycin Trough 05/18/19 05/18/19 05/19/19 11:34 23:26 04:06 WBC RBC 3.22 L Hgb 8.8 L Hct 27.3 L MCV MCH 27 L MCHC RDW 17.5 H Lymph % (Auto) [place] % (Auto) Eos % (Auto) Lymph # [place] # Eos # Seg Neutrophils % Seg Neuts % (Manual) 74.0 H Lymphocytes % (Manual) 4.0 L Monocytes % (Manual) 11.0 H Eosinophils % (Manual) 7.0 H Nucleated RBC % 1.0 H Seg Neutrophils # Seg Neutrophils # Man Lymphocytes # (Manual) 0.3 L Monocytes # (Manual) 0.9 H Eosinophils # (Manual) 0.6 H PT INR APTT POC ABG pH ABG pH POC ABG pCO2 POC ABG pO2 ABG pO2 ABG HCO3 ABG O2 Saturation ABG Base Excess ABG Hemoglobin Oxyhemoglobin Sodium Potassium Chloride Carbon Dioxide BUN Creatinine Glucose POC Glucose 152 H 112 H Uric Acid Calcium Phosphorus Magnesium AST ALT Total Creatine Kinase CK-MB (CK-2) Troponin T NT-Pro-B Natriuret Pep Total Protein Albumin Triglycerides HDL Cholesterol Urine WBC (Auto) Urine Creatinine Urine Total Protein Vancomycin Trough 05/19/19 05/19/19 05/20/19 04:06 06:00 04:00 WBC RBC 3.40 L Hgb 9.2 L Hct 28.6 L MCV MCH 27 L MCHC RDW 17.6 H Lymph % (Auto) [place] % (Auto) Eos % (Auto) Lymph # [place] # Eos # Seg Neutrophils % Seg Neuts % (Manual) Lymphocytes % (Manual) 11.0 L Monocytes % (Manual) Eosinophils % (Manual) 14.0 H Nucleated RBC % Seg Neutrophils # Seg Neutrophils # Man Lymphocytes # (Manual) 1.1 L Monocytes # (Manual) Eosinophils # (Manual) 1.4 H PT INR APTT POC ABG pH ABG pH 7.315 L POC ABG pCO2 POC ABG pO2 ABG pO2 ABG HCO3 ABG O2 Saturation ABG Base Excess ABG Hemoglobin 6.7 L Oxyhemoglobin 94.1 L Sodium Potassium 5.2 H Chloride Carbon Dioxide 21 L BUN 110 H Creatinine 7.2 H Glucose POC Glucose Uric Acid Calcium 8.3 L Phosphorus Magnesium AST ALT Total Creatine Kinase CK-MB (CK-2) Troponin T NT-Pro-B Natriuret Pep Total Protein Albumin Triglycerides HDL Cholesterol Urine WBC (Auto) Urine Creatinine Urine Total Protein Vancomycin Trough 05/20/19 05/20/19 05/20/19 04:00 05:48 12:00 WBC RBC Hgb Hct MCV MCH MCHC RDW Lymph % (Auto) [place] % (Auto) Eos % (Auto) Lymph # [place] # Eos # Seg Neutrophils % Seg Neuts % (Manual) Lymphocytes % (Manual) Monocytes % (Manual) Eosinophils % (Manual) Nucleated RBC % Seg Neutrophils # Seg Neutrophils # Man Lymphocytes # (Manual) Monocytes # (Manual) Eosinophils # (Manual) PT INR APTT POC ABG pH ABG pH 7.281 L POC ABG pCO2 POC ABG pO2 ABG pO2 78.7 L ABG HCO3 ABG O2 Saturation 94.5 L ABG Base Excess -3.0 L ABG Hemoglobin 9.9 L Oxyhemoglobin 92.5 L Sodium 136 L Potassium 5.7 H Chloride 96.3 L Carbon Dioxide BUN 125 H Creatinine 8.3 H Glucose 106 H POC Glucose Uric Acid Calcium Phosphorus Magnesium AST ALT Total Creatine Kinase CK-MB (CK-2) Troponin T NT-Pro-B Natriuret Pep Total Protein Albumin Triglycerides HDL Cholesterol Urine WBC (Auto) 26.0 H Urine Creatinine Urine Total Protein Vancomycin Trough 05/21/19 05/21/19 05/21/19 04:33 05:20 Unknown WBC RBC 3.38 L Hgb 9.1 L Hct 28.5 L MCV MCH 27 L MCHC RDW 17.4 H Lymph % (Auto) [place] % (Auto) Eos % (Auto) Lymph # [place] # Eos # Seg Neutrophils % Seg Neuts % (Manual) 71.0 H Lymphocytes % (Manual) 1.0 L Monocytes % (Manual) 11.0 H Eosinophils % (Manual) 6.0 H Nucleated RBC % Seg Neutrophils # Seg Neutrophils # Man Lymphocytes # (Manual) 0.1 L Monocytes # (Manual) 1.0 H Eosinophils # (Manual) 0.6 H PT INR APTT POC ABG pH 7.315 L ABG pH POC ABG pCO2 57.8 H POC ABG pO2 68 L ABG pO2 ABG HCO3 ABG O2 Saturation ABG Base Excess ABG Hemoglobin Oxyhemoglobin Sodium Potassium Chloride 96.3 L Carbon Dioxide BUN 102 H Creatinine 7.0 H Glucose 103 H POC Glucose Uric Acid Calcium Phosphorus Magnesium AST ALT Total Creatine Kinase CK-MB (CK-2) Troponin T NT-Pro-B Natriuret Pep Total Protein Albumin Triglycerides HDL Cholesterol Urine WBC (Auto) Urine Creatinine Urine Total Protein Vancomycin Trough 05/22/19 05/22/19 05/22/19 03:54 06:25 06:25 WBC RBC 3.22 L Hgb 8.6 L Hct 27.0 L MCV MCH 27 L MCHC RDW 17.5 H Lymph % (Auto) [place] % (Auto) 16.2 H Eos % (Auto) 10.8 H Lymph # [place] # 1.3 H Eos # 0.9 H Seg Neutrophils % Seg Neuts % (Manual) Lymphocytes % (Manual) 10.0 L Monocytes % (Manual) 13.0 H Eosinophils % (Manual) 8.0 H Nucleated RBC % Seg Neutrophils # Seg Neutrophils # Man Lymphocytes # (Manual) 0.9 L Monocytes # (Manual) 1.1 H Eosinophils # (Manual) 0.7 H PT INR APTT POC ABG pH 7.313 L ABG pH POC ABG pCO2 55.0 H POC ABG pO2 ABG pO2 ABG HCO3 ABG O2 Saturation ABG Base Excess ABG Hemoglobin Oxyhemoglobin Sodium 135 L Potassium Chloride 94.3 L Carbon Dioxide BUN 117 H Creatinine 7.8 H Glucose POC Glucose Uric Acid Calcium 8.2 L Phosphorus Magnesium AST ALT Total Creatine Kinase CK-MB (CK-2) Troponin T NT-Pro-B Natriuret Pep Total Protein Albumin Triglycerides HDL Cholesterol Urine WBC (Auto) Urine Creatinine Urine Total Protein Vancomycin Trough 05/23/19 05/24/19 05/24/19 05:21 05:00 05:00 WBC RBC 3.18 L Hgb 8.5 L Hct 26.7 L MCV MCH 27 L MCHC RDW 17.9 H Lymph % (Auto) [place] % (Auto) Eos % (Auto) Lymph # [place] # Eos # Seg Neutrophils % Seg Neuts % (Manual) Lymphocytes % (Manual) Monocytes % (Manual) Eosinophils % (Manual) Nucleated RBC % Seg Neutrophils # Seg Neutrophils # Man Lymphocytes # (Manual) Monocytes # (Manual) Eosinophils # (Manual) PT INR APTT POC ABG pH ABG pH POC ABG pCO2 49.7 H POC ABG pO2 73 L ABG pO2 ABG HCO3 ABG O2 Saturation ABG Base Excess ABG Hemoglobin Oxyhemoglobin Sodium Potassium Chloride 95.7 L Carbon Dioxide BUN 97 H Creatinine 6.5 H Glucose POC Glucose Uric Acid Calcium 8.0 L Phosphorus Magnesium AST ALT Total Creatine Kinase CK-MB (CK-2) Troponin T NT-Pro-B Natriuret Pep Total Protein Albumin Triglycerides HDL Cholesterol Urine WBC (Auto) Urine Creatinine Urine Total Protein Vancomycin Trough 05/24/19 05/25/19 05/25/19 06:17 04:22 15:45 WBC RBC 2.98 L Hgb 8.1 L Hct 24.9 L MCV MCH 27 L MCHC RDW 17.8 H Lymph % (Auto) [place] % (Auto) Eos % (Auto) Lymph # [place] # Eos # Seg Neutrophils % Seg Neuts % (Manual) Lymphocytes % (Manual) Monocytes % (Manual) Eosinophils % (Manual) Nucleated RBC % Seg Neutrophils # Seg Neutrophils # Man Lymphocytes # (Manual) Monocytes # (Manual) Eosinophils # (Manual) PT INR APTT POC ABG pH 7.330 L 7.313 L ABG pH POC ABG pCO2 52.5 H 51.1 H POC ABG pO2 77 L ABG pO2 ABG HCO3 ABG O2 Saturation ABG Base Excess ABG Hemoglobin Oxyhemoglobin Sodium Potassium Chloride Carbon Dioxide BUN Creatinine Glucose POC Glucose Uric Acid Calcium Phosphorus Magnesium AST ALT Total Creatine Kinase CK-MB (CK-2) Troponin T NT-Pro-B Natriuret Pep Total Protein Albumin Triglycerides HDL Cholesterol Urine WBC (Auto) Urine Creatinine Urine Total Protein Vancomycin Trough 05/25/19 05/26/19 05/26/19 15:45 04:13 05:00 WBC RBC 3.10 L Hgb 8.4 L Hct 26.0 L MCV MCH 27 L MCHC RDW 17.4 H Lymph % (Auto) [place] % (Auto) Eos % (Auto) Lymph # [place] # Eos # Seg Neutrophils % Seg Neuts % (Manual) Lymphocytes % (Manual) Monocytes % (Manual) Eosinophils % (Manual) Nucleated RBC % Seg Neutrophils # Seg Neutrophils # Man Lymphocytes # (Manual) Monocytes # (Manual) Eosinophils # (Manual) PT INR APTT POC ABG pH 7.295 L ABG pH POC ABG pCO2 56.5 H POC ABG pO2 63 L ABG pO2 ABG HCO3 ABG O2 Saturation ABG Base Excess ABG Hemoglobin Oxyhemoglobin Sodium 136 L Potassium Chloride 96.8 L Carbon Dioxide BUN 83 H Creatinine 5.9 H Glucose POC Glucose Uric Acid Calcium 7.6 L Phosphorus Magnesium AST ALT Total Creatine Kinase CK-MB (CK-2) Troponin T NT-Pro-B Natriuret Pep Total Protein Albumin Triglycerides HDL Cholesterol Urine WBC (Auto) Urine Creatinine Urine Total Protein Vancomycin Trough 05/26/19 05/27/19 05/28/19 05:00 04:48 04:47 WBC RBC Hgb Hct MCV MCH MCHC RDW Lymph % (Auto) [place] % (Auto) Eos % (Auto) Lymph # [place] # Eos # Seg Neutrophils % Seg Neuts % (Manual) Lymphocytes % (Manual) Monocytes % (Manual) Eosinophils % (Manual) Nucleated RBC % Seg Neutrophils # Seg Neutrophils # Man Lymphocytes # (Manual) Monocytes # (Manual) Eosinophils # (Manual) PT INR APTT POC ABG pH 7.323 L ABG pH 7.284 L POC ABG pCO2 56.2 H POC ABG pO2 ABG pO2 71.6 L ABG HCO3 ABG O2 Saturation 92.0 L ABG Base Excess ABG Hemoglobin 7.7 L Oxyhemoglobin 89.9 L Sodium 136 L Potassium Chloride 95.3 L Carbon Dioxide BUN 96 H Creatinine 6.5 H Glucose 108 H POC Glucose Uric Acid Calcium 7.6 L Phosphorus Magnesium AST ALT Total Creatine Kinase CK-MB (CK-2) Troponin T NT-Pro-B Natriuret Pep Total Protein Albumin Triglycerides HDL Cholesterol Urine WBC (Auto) Urine Creatinine Urine Total Protein Vancomycin Trough 05/28/19 05/29/19 05/29/19 12:30 12:47 23:44 WBC RBC Hgb Hct MCV MCH MCHC RDW Lymph % (Auto) [place] % (Auto) Eos % (Auto) Lymph # [place] # Eos # Seg Neutrophils % Seg Neuts % (Manual) Lymphocytes % (Manual) Monocytes % (Manual) Eosinophils % (Manual) Nucleated RBC % Seg Neutrophils # Seg Neutrophils # Man Lymphocytes # (Manual) Monocytes # (Manual) Eosinophils # (Manual) PT INR APTT POC ABG pH ABG pH POC ABG pCO2 POC ABG pO2 ABG pO2 ABG HCO3 ABG O2 Saturation ABG Base Excess ABG Hemoglobin Oxyhemoglobin Sodium 135 L Potassium Chloride 95.3 L Carbon Dioxide BUN 82 H Creatinine 6.0 H Glucose POC Glucose 136 H 159 H Uric Acid Calcium 7.5 L Phosphorus Magnesium AST ALT Total Creatine Kinase CK-MB (CK-2) Troponin T NT-Pro-B Natriuret Pep Total Protein Albumin Triglycerides HDL Cholesterol Urine WBC (Auto) Urine Creatinine Urine Total Protein Vancomycin Trough 05/30/19 05/30/19 05/30/19 04:30 05:38 12:00 WBC RBC 3.01 L Hgb 8.2 L Hct 25.3 L MCV MCH 27 L MCHC RDW 17.5 H Lymph % (Auto) [place] % (Auto) Eos % (Auto) Lymph # [place] # Eos # Seg Neutrophils % Seg Neuts % (Manual) 80.0 H Lymphocytes % (Manual) 10.0 L Monocytes % (Manual) Eosinophils % (Manual) Nucleated RBC % Seg Neutrophils # Seg Neutrophils # Man 8.0 H Lymphocytes # (Manual) 1.0 L Monocytes # (Manual) Eosinophils # (Manual) PT INR APTT POC ABG pH ABG pH POC ABG pCO2 POC ABG pO2 73 L ABG pO2 ABG HCO3 ABG O2 Saturation ABG Base Excess ABG Hemoglobin Oxyhemoglobin Sodium Potassium Chloride Carbon Dioxide BUN Creatinine Glucose POC Glucose 166 H Uric Acid Calcium Phosphorus Magnesium AST ALT Total Creatine Kinase CK-MB (CK-2) Troponin T NT-Pro-B Natriuret Pep Total Protein Albumin Triglycerides HDL Cholesterol Urine WBC (Auto) Urine Creatinine Urine Total Protein Vancomycin Trough 05/30/19 05/31/19 05/31/19 23:45 04:07 13:04 WBC 14.3 H RBC 2.88 L Hgb 7.7 L Hct 23.9 L MCV 83 L MCH 27 L MCHC RDW 17.8 H Lymph % (Auto) [place] % (Auto) Eos % (Auto) Lymph # [place] # Eos # Seg Neutrophils % Seg Neuts % (Manual) 83.0 H Lymphocytes % (Manual) 11.0 L Monocytes % (Manual) Eosinophils % (Manual) Nucleated RBC % Seg Neutrophils # Seg Neutrophils # Man 11.9 H Lymphocytes # (Manual) Monocytes # (Manual) 0.9 H Eosinophils # (Manual) PT INR APTT POC ABG pH ABG pH POC ABG pCO2 47.4 H POC ABG pO2 ABG pO2 ABG HCO3 ABG O2 Saturation ABG Base Excess ABG Hemoglobin Oxyhemoglobin Sodium Potassium Chloride Carbon Dioxide BUN Creatinine Glucose POC Glucose 209 H Uric Acid Calcium Phosphorus Magnesium AST ALT Total Creatine Kinase CK-MB (CK-2) Troponin T NT-Pro-B Natriuret Pep Total Protein Albumin Triglycerides HDL Cholesterol Urine WBC (Auto) Urine Creatinine Urine Total Protein Vancomycin Trough 05/31/19 05/31/19 06/01/19 13:04 16:42 00:15 WBC RBC Hgb Hct MCV MCH MCHC RDW Lymph % (Auto) [place] % (Auto) Eos % (Auto) Lymph # [place] # Eos # Seg Neutrophils % Seg Neuts % (Manual) Lymphocytes % (Manual) Monocytes % (Manual) Eosinophils % (Manual) Nucleated RBC % Seg Neutrophils # Seg Neutrophils # Man Lymphocytes # (Manual) Monocytes # (Manual) Eosinophils # (Manual) PT INR APTT POC ABG pH ABG pH POC ABG pCO2 POC ABG pO2 ABG pO2 ABG HCO3 ABG O2 Saturation ABG Base Excess ABG Hemoglobin Oxyhemoglobin Sodium 129 L Potassium Chloride 88.6 L Carbon Dioxide 19 L BUN 117 H Creatinine 6.7 H Glucose 205 H POC Glucose 228 H 223 H Uric Acid Calcium 7.4 L Phosphorus 7.40 H Magnesium AST 58 H ALT 149 H Total Creatine Kinase CK-MB (CK-2) Troponin T NT-Pro-B Natriuret Pep Total Protein 6.0 L Albumin 2.5 L Triglycerides HDL Cholesterol Urine WBC (Auto) Urine Creatinine Urine Total Protein Vancomycin Trough 06/01/19 06/01/19 06/01/19 04:33 05:27 12:31 WBC RBC Hgb Hct MCV MCH MCHC RDW Lymph % (Auto) [place] % (Auto) Eos % (Auto) Lymph # [place] # Eos # Seg Neutrophils % Seg Neuts % (Manual) Lymphocytes % (Manual) Monocytes % (Manual) Eosinophils % (Manual) Nucleated RBC % Seg Neutrophils # Seg Neutrophils # Man Lymphocytes # (Manual) Monocytes # (Manual) Eosinophils # (Manual) PT INR APTT POC ABG pH ABG pH POC ABG pCO2 POC ABG pO2 ABG pO2 56.9 L ABG HCO3 ABG O2 Saturation 85.9 L ABG Base Excess ABG Hemoglobin 8.1 L Oxyhemoglobin 83.6 L Sodium Potassium Chloride Carbon Dioxide BUN Creatinine Glucose POC Glucose 183 H 217 H Uric Acid Calcium Phosphorus Magnesium AST ALT Total Creatine Kinase CK-MB (CK-2) Troponin T NT-Pro-B Natriuret Pep Total Protein Albumin Triglycerides HDL Cholesterol Urine WBC (Auto) Urine Creatinine Urine Total Protein Vancomycin Trough 06/01/19 06/02/19 06/02/19 18:20 00:00 05:33 WBC RBC Hgb Hct MCV MCH MCHC RDW Lymph % (Auto) [place] % (Auto) Eos % (Auto) Lymph # [place] # Eos # Seg Neutrophils % Seg Neuts % (Manual) Lymphocytes % (Manual) Monocytes % (Manual) Eosinophils % (Manual) Nucleated RBC % Seg Neutrophils # Seg Neutrophils # Man Lymphocytes # (Manual) Monocytes # (Manual) Eosinophils # (Manual) PT INR APTT POC ABG pH ABG pH POC ABG pCO2 POC ABG pO2 ABG pO2 ABG HCO3 ABG O2 Saturation ABG Base Excess ABG Hemoglobin Oxyhemoglobin Sodium Potassium Chloride Carbon Dioxide BUN Creatinine Glucose POC Glucose 265 H 279 H 259 H Uric Acid Calcium Phosphorus Magnesium AST ALT Total Creatine Kinase CK-MB (CK-2) Troponin T NT-Pro-B Natriuret Pep Total Protein Albumin Triglycerides HDL Cholesterol Urine WBC (Auto) Urine Creatinine Urine Total Protein Vancomycin Trough 06/02/19 06/02/19 06/02/19 11:06 11:06 11:42 WBC 13.1 H RBC 2.92 L Hgb 7.9 L Hct 24.4 L MCV MCH 27 L MCHC RDW 17.4 H Lymph % (Auto) Greene % (Auto) Eos % (Auto) Lymph # Greene # Eos # Seg Neutrophils % Seg Neuts % (Manual) 78.0 H Lymphocytes % (Manual) 12.0 L Monocytes % (Manual) 10.0 H Eosinophils % (Manual) Nucleated RBC % Seg Neutrophils # Seg Neutrophils # Man 10.2 H Lymphocytes # (Manual) Monocytes # (Manual) 1.3 H Eosinophils # (Manual) PT INR APTT POC ABG pH ABG pH POC ABG pCO2 POC ABG pO2 ABG pO2 ABG HCO3 ABG O2 Saturation ABG Base Excess ABG Hemoglobin Oxyhemoglobin Sodium 135 L Potassium Chloride 94.7 L Carbon Dioxide 21 L BUN 107 H Creatinine 4.5 H Glucose 286 H POC Glucose 263 H Uric Acid Calcium 7.9 L Phosphorus 6.30 H Magnesium AST ALT 104 H Total Creatine Kinase CK-MB (CK-2) Troponin T NT-Pro-B Natriuret Pep Total Protein 6.0 L Albumin 2.7 L Triglycerides HDL Cholesterol Urine WBC (Auto) Urine Creatinine Urine Total Protein Vancomycin Trough 06/02/19 06/02/19 06/03/19 18:17 23:55 05:30 WBC RBC Hgb Hct MCV MCH MCHC RDW Lymph % (Auto) [place] % (Auto) Eos % (Auto) Lymph # [place] # Eos # Seg Neutrophils % Seg Neuts % (Manual) Lymphocytes % (Manual) Monocytes % (Manual) Eosinophils % (Manual) Nucleated RBC % Seg Neutrophils # Seg Neutrophils # Man Lymphocytes # (Manual) Monocytes # (Manual) Eosinophils # (Manual) PT INR APTT POC ABG pH ABG pH POC ABG pCO2 POC ABG pO2 ABG pO2 ABG HCO3 ABG O2 Saturation ABG Base Excess ABG Hemoglobin Oxyhemoglobin Sodium Potassium Chloride 95.1 L Carbon Dioxide 21 L BUN 119 H Creatinine 4.1 H Glucose 330 H POC Glucose 276 H 244 H Uric Acid Calcium 8.1 L Phosphorus Magnesium AST ALT 98 H Total Creatine Kinase CK-MB (CK-2) Troponin T NT-Pro-B Natriuret Pep Total Protein 5.8 L Albumin 2.8 L Triglycerides HDL Cholesterol Urine WBC (Auto) Urine Creatinine Urine Total Protein Vancomycin Trough 06/03/19 06/03/19 06/03/19 05:30 06:04 09:42 WBC 12.8 H RBC 3.01 L Hgb 8.2 L Hct 25.4 L MCV MCH 27 L MCHC RDW 17.5 H Lymph % (Auto) [place] % (Auto) Eos % (Auto) Lymph # [place] # Eos # Seg Neutrophils % Seg Neuts % (Manual) 78.0 H Lymphocytes % (Manual) 10.0 L Monocytes % (Manual) 12.0 H Eosinophils % (Manual) Nucleated RBC % Seg Neutrophils # Seg Neutrophils # Man 10.0 H Lymphocytes # (Manual) Monocytes # (Manual) 1.5 H Eosinophils # (Manual) PT INR APTT POC ABG pH ABG pH POC ABG pCO2 POC ABG pO2 ABG pO2 ABG HCO3 ABG O2 Saturation ABG Base Excess ABG Hemoglobin Oxyhemoglobin Sodium Potassium Chloride Carbon Dioxide BUN 106 H Creatinine Glucose POC Glucose 254 H Uric Acid Calcium Phosphorus Magnesium AST ALT Total Creatine Kinase CK-MB (CK-2) Troponin T NT-Pro-B Natriuret Pep Total Protein Albumin Triglycerides HDL Cholesterol Urine WBC (Auto) Urine Creatinine Urine Total Protein Vancomycin Trough 06/03/19 06/03/19 06/03/19 12:52 17:25 23:37 WBC RBC Hgb Hct MCV MCH MCHC RDW Lymph % (Auto) [place] % (Auto) Eos % (Auto) Lymph # [place] # Eos # Seg Neutrophils % Seg Neuts % (Manual) Lymphocytes % (Manual) Monocytes % (Manual) Eosinophils % (Manual) Nucleated RBC % Seg Neutrophils # Seg Neutrophils # Man Lymphocytes # (Manual) Monocytes # (Manual) Eosinophils # (Manual) PT INR APTT POC ABG pH ABG pH POC ABG pCO2 POC ABG pO2 ABG pO2 ABG HCO3 ABG O2 Saturation ABG Base Excess ABG Hemoglobin Oxyhemoglobin Sodium Potassium Chloride Carbon Dioxide BUN Creatinine Glucose POC Glucose 274 H 285 H 310 H Uric Acid Calcium Phosphorus Magnesium AST ALT Total Creatine Kinase CK-MB (CK-2) Troponin T NT-Pro-B Natriuret Pep Total Protein Albumin Triglycerides HDL Cholesterol Urine WBC (Auto) Urine Creatinine Urine Total Protein Vancomycin Trough 06/04/19 06/04/19 06/04/19 04:57 05:03 11:50 WBC RBC Hgb Hct MCV MCH MCHC RDW Lymph % (Auto) [place] % (Auto) Eos % (Auto) Lymph # [place] # Eos # Seg Neutrophils % Seg Neuts % (Manual) Lymphocytes % (Manual) Monocytes % (Manual) Eosinophils % (Manual) Nucleated RBC % Seg Neutrophils # Seg Neutrophils # Man Lymphocytes # (Manual) Monocytes # (Manual) Eosinophils # (Manual) PT INR APTT POC ABG pH 7.488 H ABG pH POC ABG pCO2 POC ABG pO2 ABG pO2 ABG HCO3 ABG O2 Saturation ABG Base Excess ABG Hemoglobin Oxyhemoglobin Sodium Potassium Chloride Carbon Dioxide BUN Creatinine Glucose POC Glucose 275 H 279 H Uric Acid Calcium Phosphorus Magnesium AST ALT Total Creatine Kinase CK-MB (CK-2) Troponin T NT-Pro-B Natriuret Pep Total Protein Albumin Triglycerides HDL Cholesterol Urine WBC (Auto) Urine Creatinine Urine Total Protein Vancomycin Trough 06/04/19 06/04/19 06/04/19 18:32 22:03 23:55 WBC RBC Hgb Hct MCV MCH MCHC RDW Lymph % (Auto) [place] % (Auto) Eos % (Auto) Lymph # [place] # Eos # Seg Neutrophils % Seg Neuts % (Manual) Lymphocytes % (Manual) Monocytes % (Manual) Eosinophils % (Manual) Nucleated RBC % Seg Neutrophils # Seg Neutrophils # Man Lymphocytes # (Manual) Monocytes # (Manual) Eosinophils # (Manual) PT INR APTT POC ABG pH ABG pH POC ABG pCO2 POC ABG pO2 ABG pO2 ABG HCO3 ABG O2 Saturation ABG Base Excess ABG Hemoglobin Oxyhemoglobin Sodium Potassium Chloride Carbon Dioxide BUN Creatinine Glucose POC Glucose 267 H 307 H 292 H Uric Acid Calcium Phosphorus Magnesium AST ALT Total Creatine Kinase CK-MB (CK-2) Troponin T NT-Pro-B Natriuret Pep Total Protein Albumin Triglycerides HDL Cholesterol Urine WBC (Auto) Urine Creatinine Urine Total Protein Vancomycin Trough 06/05/19 06/05/19 06/05/19 03:52 06:41 12:29 WBC RBC Hgb Hct MCV MCH MCHC RDW Lymph % (Auto) [place] % (Auto) Eos % (Auto) Lymph # [place] # Eos # Seg Neutrophils % Seg Neuts % (Manual) Lymphocytes % (Manual) Monocytes % (Manual) Eosinophils % (Manual) Nucleated RBC % Seg Neutrophils # Seg Neutrophils # Man Lymphocytes # (Manual) Monocytes # (Manual) Eosinophils # (Manual) PT INR APTT POC ABG pH 7.462 H ABG pH POC ABG pCO2 POC ABG pO2 ABG pO2 ABG HCO3 ABG O2 Saturation ABG Base Excess ABG Hemoglobin Oxyhemoglobin Sodium Potassium Chloride Carbon Dioxide BUN Creatinine Glucose POC Glucose 369 H 265 H Uric Acid Calcium Phosphorus Magnesium AST ALT Total Creatine Kinase CK-MB (CK-2) Troponin T NT-Pro-B Natriuret Pep Total Protein Albumin Triglycerides HDL Cholesterol Urine WBC (Auto) Urine Creatinine Urine Total Protein Vancomycin Trough 06/05/19 06/05/19 06/05/19 18:20 21:42 23:21 WBC RBC Hgb Hct MCV MCH MCHC RDW Lymph % (Auto) [place] % (Auto) Eos % (Auto) Lymph # [place] # Eos # Seg Neutrophils % Seg Neuts % (Manual) Lymphocytes % (Manual) Monocytes % (Manual) Eosinophils % (Manual) Nucleated RBC % Seg Neutrophils # Seg Neutrophils # Man Lymphocytes # (Manual) Monocytes # (Manual) Eosinophils # (Manual) PT INR APTT POC ABG pH ABG pH POC ABG pCO2 POC ABG pO2 ABG pO2 ABG HCO3 ABG O2 Saturation ABG Base Excess ABG Hemoglobin Oxyhemoglobin Sodium Potassium Chloride Carbon Dioxide BUN Creatinine Glucose POC Glucose 249 H 246 H 274 H Uric Acid Calcium Phosphorus Magnesium AST ALT Total Creatine Kinase CK-MB (CK-2) Troponin T NT-Pro-B Natriuret Pep Total Protein Albumin Triglycerides HDL Cholesterol Urine WBC (Auto) Urine Creatinine Urine Total Protein Vancomycin Trough 06/06/19 06/06/19 06/06/19 04:00 05:49 11:34 WBC 18.1 H RBC 3.53 L Hgb 9.5 L Hct 30.3 L MCV MCH 27 L MCHC 31 L RDW 19.5 H Lymph % (Auto) [place] % (Auto) Eos % (Auto) Lymph # [place] # Eos # Seg Neutrophils % Seg Neuts % (Manual) 87.0 H Lymphocytes % (Manual) 3.0 L Monocytes % (Manual) 8.0 H Eosinophils % (Manual) Nucleated RBC % Seg Neutrophils # Seg Neutrophils # Man 15.7 H Lymphocytes # (Manual) 0.5 L Monocytes # (Manual) 1.4 H Eosinophils # (Manual) PT INR APTT POC ABG pH ABG pH 7.472 H POC ABG pCO2 POC ABG pO2 ABG pO2 76.4 L ABG HCO3 28.1 H ABG O2 Saturation ABG Base Excess 4.3 H ABG Hemoglobin 12.5 L Oxyhemoglobin 93.8 L Sodium Potassium Chloride Carbon Dioxide BUN Creatinine Glucose POC Glucose 340 H Uric Acid Calcium Phosphorus Magnesium AST ALT Total Creatine Kinase CK-MB (CK-2) Troponin T NT-Pro-B Natriuret Pep Total Protein Albumin Triglycerides HDL Cholesterol Urine WBC (Auto) Urine Creatinine Urine Total Protein Vancomycin Trough 06/06/19 06/06/19 06/06/19 11:34 12:11 18:10 WBC RBC Hgb Hct MCV MCH MCHC RDW Lymph % (Auto) [place] % (Auto) Eos % (Auto) Lymph # [place] # Eos # Seg Neutrophils % Seg Neuts % (Manual) Lymphocytes % (Manual) Monocytes % (Manual) Eosinophils % (Manual) Nucleated RBC % Seg Neutrophils # Seg Neutrophils # Man Lymphocytes # (Manual) Monocytes # (Manual) Eosinophils # (Manual) PT INR APTT POC ABG pH ABG pH POC ABG pCO2 POC ABG pO2 ABG pO2 ABG HCO3 ABG O2 Saturation ABG Base Excess ABG Hemoglobin Oxyhemoglobin Sodium Potassium Chloride Carbon Dioxide BUN 70 H Creatinine Glucose 310 H POC Glucose 283 H 301 H Uric Acid Calcium 8.3 L Phosphorus 4.60 H Magnesium AST ALT 75 H Total Creatine Kinase CK-MB (CK-2) Troponin T NT-Pro-B Natriuret Pep Total Protein 5.6 L Albumin 2.9 L Triglycerides HDL Cholesterol Urine WBC (Auto) Urine Creatinine Urine Total Protein Vancomycin Trough 06/06/19 06/06/19 06/07/19 22:21 23:16 04:30 WBC RBC Hgb Hct MCV MCH MCHC RDW Lymph % (Auto) [place] % (Auto) Eos % (Auto) Lymph # [place] # Eos # Seg Neutrophils % Seg Neuts % (Manual) Lymphocytes % (Manual) Monocytes % (Manual) Eosinophils % (Manual) Nucleated RBC % Seg Neutrophils # Seg Neutrophils # Man Lymphocytes # (Manual) Monocytes # (Manual) Eosinophils # (Manual) PT INR APTT POC ABG pH ABG pH 7.480 H POC ABG pCO2 POC ABG pO2 ABG pO2 77.0 L ABG HCO3 27.2 H ABG O2 Saturation ABG Base Excess 3.5 H ABG Hemoglobin 7.1 L Oxyhemoglobin 94.2 L Sodium Potassium Chloride Carbon Dioxide BUN Creatinine Glucose POC Glucose 289 H 343 H Uric Acid Calcium Phosphorus Magnesium AST ALT Total Creatine Kinase CK-MB (CK-2) Troponin T NT-Pro-B Natriuret Pep Total Protein Albumin Triglycerides HDL Cholesterol Urine WBC (Auto) Urine Creatinine Urine Total Protein Vancomycin Trough 06/07/19 06/07/19 06/07/19 05:15 12:52 18:41 WBC RBC Hgb Hct MCV MCH MCHC RDW Lymph % (Auto) [place] % (Auto) Eos % (Auto) Lymph # [place] # Eos # Seg Neutrophils % Seg Neuts % (Manual) Lymphocytes % (Manual) Monocytes % (Manual) Eosinophils % (Manual) Nucleated RBC % Seg Neutrophils # Seg Neutrophils # Man Lymphocytes # (Manual) Monocytes # (Manual) Eosinophils # (Manual) PT INR APTT POC ABG pH ABG pH POC ABG pCO2 POC ABG pO2 ABG pO2 ABG HCO3 ABG O2 Saturation ABG Base Excess ABG Hemoglobin Oxyhemoglobin Sodium Potassium Chloride Carbon Dioxide BUN Creatinine Glucose POC Glucose 307 H 226 H 187 H Uric Acid Calcium Phosphorus Magnesium AST ALT Total Creatine Kinase CK-MB (CK-2) Troponin T NT-Pro-B Natriuret Pep Total Protein Albumin Triglycerides HDL Cholesterol Urine WBC (Auto) Urine Creatinine Urine Total Protein Vancomycin Trough 06/07/19 06/07/19 06/08/19 22:54 23:46 04:20 WBC 16.0 H RBC Hgb 10.0 L Hct 32.1 L MCV MCH 27 L MCHC 31 L RDW 19.4 H Lymph % (Auto) [place] % (Auto) Eos % (Auto) Lymph # [place] # Eos # Seg Neutrophils % Seg Neuts % (Manual) 87.0 H Lymphocytes % (Manual) 7.0 L Monocytes % (Manual) Eosinophils % (Manual) Nucleated RBC % Seg Neutrophils # Seg Neutrophils # Man 13.9 H Lymphocytes # (Manual) 1.1 L Monocytes # (Manual) 1.0 H Eosinophils # (Manual) PT INR APTT POC ABG pH ABG pH POC ABG pCO2 POC ABG pO2 ABG pO2 ABG HCO3 ABG O2 Saturation ABG Base Excess ABG Hemoglobin Oxyhemoglobin Sodium Potassium Chloride Carbon Dioxide BUN Creatinine Glucose POC Glucose 199 H 172 H Uric Acid Calcium Phosphorus Magnesium AST ALT Total Creatine Kinase CK-MB (CK-2) Troponin T NT-Pro-B Natriuret Pep Total Protein Albumin Triglycerides HDL Cholesterol Urine WBC (Auto) Urine Creatinine Urine Total Protein Vancomycin Trough 06/08/19 06/08/19 06/08/19 04:20 05:15 11:31 WBC RBC Hgb Hct MCV MCH MCHC RDW Lymph % (Auto) [place] % (Auto) Eos % (Auto) Lymph # [place] # Eos # Seg Neutrophils % Seg Neuts % (Manual) Lymphocytes % (Manual) Monocytes % (Manual) Eosinophils % (Manual) Nucleated RBC % Seg Neutrophils # Seg Neutrophils # Man Lymphocytes # (Manual) Monocytes # (Manual) Eosinophils # (Manual) PT INR APTT POC ABG pH ABG pH POC ABG pCO2 POC ABG pO2 ABG pO2 ABG HCO3 ABG O2 Saturation ABG Base Excess ABG Hemoglobin Oxyhemoglobin Sodium 146 H D Potassium Chloride Carbon Dioxide BUN 77 H Creatinine Glucose 205 H POC Glucose 209 H 181 H Uric Acid Calcium Phosphorus Magnesium AST ALT 66 H Total Creatine Kinase CK-MB (CK-2) Troponin T NT-Pro-B Natriuret Pep Total Protein 5.5 L Albumin 2.9 L Triglycerides HDL Cholesterol Urine WBC (Auto) Urine Creatinine Urine Total Protein Vancomycin Trough 06/08/19 06/08/19 06/09/19 17:28 23:24 05:20 WBC RBC Hgb Hct MCV MCH MCHC RDW Lymph % (Auto) [place] % (Auto) Eos % (Auto) Lymph # [place] # Eos # Seg Neutrophils % Seg Neuts % (Manual) Lymphocytes % (Manual) Monocytes % (Manual) Eosinophils % (Manual) Nucleated RBC % Seg Neutrophils # Seg Neutrophils # Man Lymphocytes # (Manual) Monocytes # (Manual) Eosinophils # (Manual) PT INR APTT POC ABG pH ABG pH POC ABG pCO2 POC ABG pO2 ABG pO2 ABG HCO3 ABG O2 Saturation ABG Base Excess ABG Hemoglobin Oxyhemoglobin Sodium Potassium Chloride Carbon Dioxide BUN Creatinine Glucose POC Glucose 215 H 200 H 173 H Uric Acid Calcium Phosphorus Magnesium AST ALT Total Creatine Kinase CK-MB (CK-2) Troponin T NT-Pro-B Natriuret Pep Total Protein Albumin Triglycerides HDL Cholesterol Urine WBC (Auto) Urine Creatinine Urine Total Protein Vancomycin Trough 06/09/19 06/09/19 06/09/19 12:07 18:32 23:51 WBC RBC Hgb Hct MCV MCH MCHC RDW Lymph % (Auto) [place] % (Auto) Eos % (Auto) Lymph # [place] # Eos # Seg Neutrophils % Seg Neuts % (Manual) Lymphocytes % (Manual) Monocytes % (Manual) Eosinophils % (Manual) Nucleated RBC % Seg Neutrophils # Seg Neutrophils # Man Lymphocytes # (Manual) Monocytes # (Manual) Eosinophils # (Manual) PT INR APTT POC ABG pH ABG pH POC ABG pCO2 POC ABG pO2 ABG pO2 ABG HCO3 ABG O2 Saturation ABG Base Excess ABG Hemoglobin Oxyhemoglobin Sodium Potassium Chloride Carbon Dioxide BUN Creatinine Glucose POC Glucose 117 H 169 H 147 H Uric Acid Calcium Phosphorus Magnesium AST ALT Total Creatine Kinase CK-MB (CK-2) Troponin T NT-Pro-B Natriuret Pep Total Protein Albumin Triglycerides HDL Cholesterol Urine WBC (Auto) Urine Creatinine Urine Total Protein Vancomycin Trough 06/10/19 06/10/19 06/10/19 05:45 05:45 06:01 WBC 14.6 H RBC Hgb 9.9 L Hct 32.2 L MCV MCH 27 L MCHC 31 L RDW 19.6 H Lymph % (Auto) 10.5 L [place] % (Auto) 9.4 H Eos % (Auto) Lymph # [place] # 1.4 H Eos # Seg Neutrophils % 79.9 H Seg Neuts % (Manual) Lymphocytes % (Manual) Monocytes % (Manual) Eosinophils % (Manual) Nucleated RBC % Seg Neutrophils # 11.7 H Seg Neutrophils # Man Lymphocytes # (Manual) Monocytes # (Manual) Eosinophils # (Manual) PT INR APTT POC ABG pH ABG pH POC ABG pCO2 POC ABG pO2 ABG pO2 ABG HCO3 ABG O2 Saturation ABG Base Excess ABG Hemoglobin Oxyhemoglobin Sodium 150 H Potassium Chloride 108.3 H Carbon Dioxide BUN 49 H Creatinine Glucose 172 H POC Glucose 165 H Uric Acid Calcium Phosphorus Magnesium 1.40 L AST ALT Total Creatine Kinase CK-MB (CK-2) Troponin T NT-Pro-B Natriuret Pep Total Protein Albumin Triglycerides HDL Cholesterol Urine WBC (Auto) Urine Creatinine Urine Total Protein Vancomycin Trough 06/10/19 06/10/19 06/11/19 12:11 18:30 00:02 WBC RBC Hgb Hct MCV MCH MCHC RDW Lymph % (Auto) [place] % (Auto) Eos % (Auto) Lymph # [place] # Eos # Seg Neutrophils % Seg Neuts % (Manual) Lymphocytes % (Manual) Monocytes % (Manual) Eosinophils % (Manual) Nucleated RBC % Seg Neutrophils # Seg Neutrophils # Man Lymphocytes # (Manual) Monocytes # (Manual) Eosinophils # (Manual) PT INR APTT POC ABG pH ABG pH POC ABG pCO2 POC ABG pO2 ABG pO2 ABG HCO3 ABG O2 Saturation ABG Base Excess ABG Hemoglobin Oxyhemoglobin Sodium Potassium Chloride Carbon Dioxide BUN Creatinine Glucose POC Glucose 150 H 154 H 130 H Uric Acid Calcium Phosphorus Magnesium AST ALT Total Creatine Kinase CK-MB (CK-2) Troponin T NT-Pro-B Natriuret Pep Total Protein Albumin Triglycerides HDL Cholesterol Urine WBC (Auto) Urine Creatinine Urine Total Protein Vancomycin Trough 06/11/19 06/11/19 06/11/19 05:33 08:34 12:33 WBC RBC Hgb Hct MCV MCH MCHC RDW Lymph % (Auto) [place] % (Auto) Eos % (Auto) Lymph # [place] # Eos # Seg Neutrophils % Seg Neuts % (Manual) Lymphocytes % (Manual) Monocytes % (Manual) Eosinophils % (Manual) Nucleated RBC % Seg Neutrophils # Seg Neutrophils # Man Lymphocytes # (Manual) Monocytes # (Manual) Eosinophils # (Manual) PT INR APTT POC ABG pH ABG pH POC ABG pCO2 POC ABG pO2 ABG pO2 ABG HCO3 ABG O2 Saturation ABG Base Excess ABG Hemoglobin Oxyhemoglobin Sodium 154 H Potassium Chloride 111.6 H Carbon Dioxide BUN 41 H Creatinine Glucose 147 H POC Glucose 183 H 185 H Uric Acid Calcium Phosphorus Magnesium AST ALT Total Creatine Kinase CK-MB (CK-2) Troponin T NT-Pro-B Natriuret Pep Total Protein Albumin Triglycerides HDL Cholesterol Urine WBC (Auto) Urine Creatinine Urine Total Protein Vancomycin Trough 06/11/19 06/11/19 06/12/19 18:22 23:46 03:21 WBC 11.9 H RBC 3.61 L Hgb 9.9 L Hct 31.7 L MCV MCH 27 L MCHC 31 L RDW 19.3 H Lymph % (Auto) 10.6 L [place] % (Auto) 8.6 H Eos % (Auto) Lymph # [place] # 1.0 H Eos # Seg Neutrophils % 80.6 H Seg Neuts % (Manual) Lymphocytes % (Manual) Monocytes % (Manual) Eosinophils % (Manual) Nucleated RBC % Seg Neutrophils # 9.6 H Seg Neutrophils # Man Lymphocytes # (Manual) Monocytes # (Manual) Eosinophils # (Manual) PT INR APTT POC ABG pH ABG pH POC ABG pCO2 POC ABG pO2 ABG pO2 ABG HCO3 ABG O2 Saturation ABG Base Excess ABG Hemoglobin Oxyhemoglobin Sodium Potassium Chloride Carbon Dioxide BUN Creatinine Glucose POC Glucose 158 H 182 H Uric Acid Calcium Phosphorus Magnesium AST ALT Total Creatine Kinase CK-MB (CK-2) Troponin T NT-Pro-B Natriuret Pep Total Protein Albumin Triglycerides HDL Cholesterol Urine WBC (Auto) Urine Creatinine Urine Total Protein Vancomycin Trough 06/12/19 06/12/19 06/12/19 03:21 06:04 11:28 WBC RBC Hgb Hct MCV MCH MCHC RDW Lymph % (Auto) [place] % (Auto) Eos % (Auto) Lymph # [place] # Eos # Seg Neutrophils % Seg Neuts % (Manual) Lymphocytes % (Manual) Monocytes % (Manual) Eosinophils % (Manual) Nucleated RBC % Seg Neutrophils # Seg Neutrophils # Man Lymphocytes # (Manual) Monocytes # (Manual) Eosinophils # (Manual) PT INR APTT POC ABG pH ABG pH POC ABG pCO2 POC ABG pO2 ABG pO2 ABG HCO3 ABG O2 Saturation ABG Base Excess ABG Hemoglobin Oxyhemoglobin Sodium 148 H Potassium Chloride 107.3 H Carbon Dioxide BUN 34 H Creatinine 0.7 L Glucose 194 H POC Glucose 133 H 167 H Uric Acid Calcium Phosphorus Magnesium 1.40 L AST ALT Total Creatine Kinase CK-MB (CK-2) Troponin T NT-Pro-B Natriuret Pep Total Protein Albumin Triglycerides HDL Cholesterol Urine WBC (Auto) Urine Creatinine Urine Total Protein Vancomycin Trough 06/12/19 06/12/19 06/13/19 18:47 21:27 00:04 WBC RBC Hgb Hct MCV MCH MCHC RDW Lymph % (Auto) [place] % (Auto) Eos % (Auto) Lymph # [place] # Eos # Seg Neutrophils % Seg Neuts % (Manual) Lymphocytes % (Manual) Monocytes % (Manual) Eosinophils % (Manual) Nucleated RBC % Seg Neutrophils # Seg Neutrophils # Man Lymphocytes # (Manual) Monocytes # (Manual) Eosinophils # (Manual) PT INR APTT POC ABG pH ABG pH POC ABG pCO2 POC ABG pO2 ABG pO2 ABG HCO3 ABG O2 Saturation ABG Base Excess ABG Hemoglobin Oxyhemoglobin Sodium Potassium Chloride Carbon Dioxide BUN Creatinine Glucose POC Glucose 210 H 263 H 248 H Uric Acid Calcium Phosphorus Magnesium AST ALT Total Creatine Kinase CK-MB (CK-2) Troponin T NT-Pro-B Natriuret Pep Total Protein Albumin Triglycerides HDL Cholesterol Urine WBC (Auto) Urine Creatinine Urine Total Protein Vancomycin Trough 06/13/19 06/13/19 06/13/19 04:32 05:46 13:30 WBC RBC Hgb Hct MCV MCH MCHC RDW Lymph % (Auto) [place] % (Auto) Eos % (Auto) Lymph # [place] # Eos # Seg Neutrophils % Seg Neuts % (Manual) Lymphocytes % (Manual) Monocytes % (Manual) Eosinophils % (Manual) Nucleated RBC % Seg Neutrophils # Seg Neutrophils # Man Lymphocytes # (Manual) Monocytes # (Manual) Eosinophils # (Manual) PT INR APTT POC ABG pH ABG pH POC ABG pCO2 POC ABG pO2 ABG pO2 ABG HCO3 ABG O2 Saturation ABG Base Excess ABG Hemoglobin Oxyhemoglobin Sodium Potassium Chloride Carbon Dioxide BUN 27 H Creatinine 0.7 L Glucose 253 H POC Glucose 201 H 241 H Uric Acid Calcium Phosphorus Magnesium AST ALT Total Creatine Kinase CK-MB (CK-2) Troponin T NT-Pro-B Natriuret Pep Total Protein Albumin Triglycerides HDL Cholesterol Urine WBC (Auto) Urine Creatinine Urine Total Protein Vancomycin Trough 06/13/19 06/13/19 06/14/19 17:33 23:49 04:50 WBC RBC Hgb Hct MCV MCH MCHC RDW Lymph % (Auto) [place] % (Auto) Eos % (Auto) Lymph # [place] # Eos # Seg Neutrophils % Seg Neuts % (Manual) Lymphocytes % (Manual) Monocytes % (Manual) Eosinophils % (Manual) Nucleated RBC % Seg Neutrophils # Seg Neutrophils # Man Lymphocytes # (Manual) Monocytes # (Manual) Eosinophils # (Manual) PT INR APTT POC ABG pH ABG pH POC ABG pCO2 POC ABG pO2 ABG pO2 ABG HCO3 ABG O2 Saturation ABG Base Excess ABG Hemoglobin Oxyhemoglobin Sodium Potassium Chloride Carbon Dioxide BUN 37 H Creatinine Glucose 256 H POC Glucose 264 H 236 H Uric Acid Calcium Phosphorus Magnesium AST ALT Total Creatine Kinase CK-MB (CK-2) Troponin T NT-Pro-B Natriuret Pep Total Protein Albumin Triglycerides HDL Cholesterol Urine WBC (Auto) Urine Creatinine Urine Total Protein Vancomycin Trough 06/14/19 06/14/19 06/14/19 05:26 12:31 18:32 WBC RBC Hgb Hct MCV MCH MCHC RDW Lymph % (Auto) [place] % (Auto) Eos % (Auto) Lymph # [place] # Eos # Seg Neutrophils % Seg Neuts % (Manual) Lymphocytes % (Manual) Monocytes % (Manual) Eosinophils % (Manual) Nucleated RBC % Seg Neutrophils # Seg Neutrophils # Man Lymphocytes # (Manual) Monocytes # (Manual) Eosinophils # (Manual) PT INR APTT POC ABG pH ABG pH POC ABG pCO2 POC ABG pO2 ABG pO2 ABG HCO3 ABG O2 Saturation ABG Base Excess ABG Hemoglobin Oxyhemoglobin Sodium Potassium Chloride Carbon Dioxide BUN Creatinine Glucose POC Glucose 239 H 116 H 247 H Uric Acid Calcium Phosphorus Magnesium AST ALT Total Creatine Kinase CK-MB (CK-2) Troponin T NT-Pro-B Natriuret Pep Total Protein Albumin Triglycerides HDL Cholesterol Urine WBC (Auto) Urine Creatinine Urine Total Protein Vancomycin Trough 06/14/19 06/15/19 06/15/19 23:57 04:05 05:55 WBC RBC Hgb Hct MCV MCH MCHC RDW Lymph % (Auto) [place] % (Auto) Eos % (Auto) Lymph # [place] # Eos # Seg Neutrophils % Seg Neuts % (Manual) Lymphocytes % (Manual) Monocytes % (Manual) Eosinophils % (Manual) Nucleated RBC % Seg Neutrophils # Seg Neutrophils # Man Lymphocytes # (Manual) Monocytes # (Manual) Eosinophils # (Manual) PT INR APTT POC ABG pH ABG pH POC ABG pCO2 POC ABG pO2 ABG pO2 ABG HCO3 ABG O2 Saturation ABG Base Excess ABG Hemoglobin Oxyhemoglobin Sodium Potassium Chloride Carbon Dioxide BUN 46 H Creatinine 0.7 L Glucose 265 H POC Glucose 206 H 265 H Uric Acid Calcium Phosphorus Magnesium AST ALT Total Creatine Kinase CK-MB (CK-2) Troponin T NT-Pro-B Natriuret Pep Total Protein Albumin Triglycerides HDL Cholesterol Urine WBC (Auto) Urine Creatinine Urine Total Protein Vancomycin Trough 06/15/19 12:08 WBC RBC Hgb Hct MCV MCH MCHC RDW Lymph % (Auto) [place] % (Auto) Eos % (Auto) Lymph # [place] # Eos # Seg Neutrophils % Seg Neuts % (Manual) Lymphocytes % (Manual) Monocytes % (Manual) Eosinophils % (Manual) Nucleated RBC % Seg Neutrophils # Seg Neutrophils # Man Lymphocytes # (Manual) Monocytes # (Manual) Eosinophils # (Manual) PT INR APTT POC ABG pH ABG pH POC ABG pCO2 POC ABG pO2 ABG pO2 ABG HCO3 ABG O2 Saturation ABG Base Excess ABG Hemoglobin Oxyhemoglobin Sodium Potassium Chloride Carbon Dioxide BUN Creatinine Glucose POC Glucose 224 H Uric Acid Calcium Phosphorus Magnesium AST ALT Total Creatine Kinase CK-MB (CK-2) Troponin T NT-Pro-B Natriuret Pep Total Protein Albumin Triglycerides HDL Cholesterol Urine WBC (Auto) Urine Creatinine Urine Total Protein Vancomycin Trough Chest x-ray: report reviewed, image reviewed (probable mild pulmonary vascular congestion)
--- NOTE | 2019-06-15 18:03 | Progress Note ---
Assessment and Plan - Patient Problems (1) Acute kidney injury Current Visit: Yes Status: Acute Plan to address problem: Acute kidney injury now dialysis dependent improving Baseline creatinine unknown Kidney function is improving Chest x-ray with concern for Bibasilar haziness? pulmonary congestion He is no longer dialysis dependent Will give Bumex 1mg once. Plan to remove PermCath in the coming days if renal function continues to be stable (2) Hypercapnic respiratory failure Current Visit: Yes Status: Acute Qualifiers: Chronicity: acute on chronic Qualified Code(s): J96.22 - Acute and chronic respiratory failure with hypercapnia Plan to address problem: Acute on chronic respiratory failure with hypercapnia Patient is currently intubated chest x-ray with some concern for bibasilar haziness Given morbid obesity. Obesity hypoventilation Wean oxygen as tolerated (3) Anemia Current Visit: Yes Status: Acute Plan to address problem: Mild anemia Monitor CBC (4) Anemia Current Visit: Yes Status: Acute Plan to address problem: anemia secondary to chronic inflammation and underlying acute illness Monitor CBC Subjective Principal diagnosis: HF; acute hypoxemic resp failure, SIRS, CARLA Interval history: 34-year-old gentleman with morbid obesity, found with cyanosis difficulty with breathing and brought to the emergency room he required intubation review of systems unobtainable patient remains intubated and FiO2 100% he has had worsening renal function nephrology consulted for this. He was subsequently found to have a fever infectious diseases is following she initially related improvement. Acute kidney injury, subsequent worsening in the setting of elevated vancomycin levels Patient seen remains on 50% Ventimask Unable to assess urine output however has been voiding repeatedly with improving numbers Has lower extremity edema Currently off hemodialysis Objective - Vital Signs Vital signs: Vital Signs - 12hr 06/15/19 06/15/19 06/15/19 07:00 07:40 08:00 Temperature 99.1 F Pulse Rate 99 H 100 H 96 H Pulse Rate [ 93 H From Monitor] Respiratory 21 15 Rate Blood Pressure 157/79 157/79 168/75 O2 Sat by Pulse 100 100 Oximetry 06/15/19 06/15/19 06/15/19 08:27 09:01 10:00 Temperature Pulse Rate 92 H Pulse Rate [ From Monitor] Respiratory 20 Rate Blood Pressure 118/57 125/65 O2 Sat by Pulse 100 100 98 Oximetry 06/15/19 06/15/19 06/15/19 11:31 12:00 13:00 Temperature 98.8 F Pulse Rate 95 H 95 H Pulse Rate [ 91 H From Monitor] Respiratory 25 H 22 Rate Blood Pressure 137/62 144/54 139/70 O2 Sat by Pulse 100 100 98 Oximetry 06/15/19 06/15/19 15:21 16:00 Temperature 98.9 F Pulse Rate 103 H Pulse Rate [ From Monitor] Respiratory Rate Blood Pressure 120/60 O2 Sat by Pulse Oximetry - General Appearance General appearance: well-developed, well-nourished EENT: ATNC, PERRL Neck: no JVD Respiratory: Present: Decreased Breath Sounds Cardiology: regular, S1S2 Gastrointestinal: normal, normoactive bowel sounds Neurologic: alert and oriented x3, CN 3-12 intact Psychiatric: mood/affect appropriate - Lab 06/12/19 03:21 06/15/19 04:05 Most recent lab results ABG pH 7.480 pH Units (7.350-7.450) H 06/07/19 04:30 ABG pCO2 37.4 mm Hg 06/07/19 04:30 ABG pO2 77.0 mm Hg (80.0-90.0) L 06/07/19 04:30 ABG HCO3 27.2 mmol/L (20.0-26.0) H 06/07/19 04:30 ABG O2 Saturation 96.7 % (95.0-99.0) 06/07/19 04:30 Calcium 9.2 mg/dL (8.4-10.2) 06/15/19 04:05 Phosphorus 3.70 mg/dL (2.5-4.5) 06/10/19 05:45 Magnesium 1.40 mg/dL (1.7-2.3) L 06/12/19 03:21 Urine Creatinine 292.8 mg/dL (0.1-20.0) H 05/07/19 22:40 Urine Sodium 11 mmol/L 05/07/19 22:40 Urine Total Protein 269 mg/dL (5-11.8) H 05/07/19 22:40 - Imaging Chest x-ray: image reviewed (cxr with some pulmonary congestion) Medications & Allergies - Medications Allergies/Adverse Reactions: Allergies No Known Allergies Allergy (Verified 05/01/19 20:27) Home Medications: Home Medications Medication Instructions Recorded Confirmed Last Taken Type No Known Home Medications [No 12/09/19 12/09/19 Unknown History Reported Home Medications] Active Medications: Generic Name Dose Route Start Last Admin Trade Name Freq PRN Reason Stop Dose Admin Albumin Human 25 gm 05/19/19 10:47 Alburx 25% (Albumin) IV ARIANE PRN Hypotension Lipase/Protease/Amylase 1 each 05/14/19 15:01 Pancremannie Fletcher 10,500 Unit FEEDTUBE PRN PRN For Clogged Feeding Tube Clonidine HCl 0.3 mg 06/06/19 20:00 06/13/19 20:28 Catapres-Tts Patch TD 0.3 mg Lao VICKEY Administration Dextrose 50 gm 05/01/19 20:24 D50w (25gm) Vial IV Q30MIN PRN Hypoglycemia Protocol Enoxaparin Sodium 40 mg 06/14/19 18:00 06/15/19 10:07 Enoxaparin SUB-Q 40 mg QDAY VICKEY Administration Famotidine 20 mg 05/16/19 10:00 06/15/19 10:09 Pepcid PO 20 mg DAILY VICKEY Administration Furosemide 20 mg 06/15/19 16:00 Lasix PO DAILY@0600 VICKEY Levetiracetam 750 mg/ Dextrose 107.5 mls @ 400 mls/hr 06/09/19 22:00 06/15/19 12:33 IV 06/15/19 23:59 400 mls/hr Q12HR VICKEY Administration Insulin Glargine 10 units 06/15/19 22:00 Lantus SUB-Q QHS VICKEY Insulin Human Lispro 0 unit 06/01/19 14:00 06/15/19 12:32 Humalog SUB-Q 4 unit Q6HR VICKEY Administration Protocol Labetalol HCl 10 mg 06/11/19 22:48 06/12/19 01:20 Labetalol IV 10 mg Q4H PRN Administration BP >170/105; hold for HR <60 Labetalol HCl 200 mg 06/13/19 11:36 06/15/19 15:21 Labetalol PO 200 mg Q8HR VICKEY Administration Levetiracetam 750 mg 06/16/19 10:00 Keppra PO BID VICKEY Methylprednisolone Sodium Succinate 20 mg 06/14/19 18:00 06/15/19 10:09 Solu-Medrol IV 20 mg Q8H VICKEY Administration Minoxidil 2.5 mg 06/06/19 22:00 06/15/19 10:09 Loniten PO 2.5 mg BID VICKEY Administration Simple Syrup 15 ml 05/14/19 15:01 Simple Syrup FEEDTUBE PRN PRN Hypoglycemia Simple Syrup 30 ml 05/14/19 15:01 Simple Syrup FEEDTUBE PRN PRN Hypoglycemia Sodium Bicarbonate 325 mg 05/14/19 15:01 Sodium Bicarbonate FEEDTUBE PRN PRN For Clogged Feeding Tube
[2019-06-15] MEDS ORDERED: BUMETANIDE 1 MG/4 ML INJ IV ONE (18:30)
[2019-06-15] MEDS: FUROSEMIDE 20 MG TAB PO SCH (20:25)
[2019-06-15] MEDS ORDERED: INSULIN GLARGINE 100 UNITS/ML SUB-Q SCH (22:00)
[2019-06-16] MEDS: methylPREDNISolone Sod Succinate 40 MG/1 ML INJ IV SCH ×3 (02:29→18:25)
[2019-06-16 05:26] LABS: Mean Corpuscular HGB Conc 31 % (32-34); Mean Corpuscular Volume 90 fl (84-94); Platelet Count 111 K/mm3 (140-440); Red Blood Count 3.24 M/mm3 (3.65-5.03); Red Cell Distribution Width 18.6 % (13.2-15.2)
[2019-06-16 05:54] LABS: BUN/Creatinine Ratio 70; Blood Urea Nitrogen 49 mg/dL (9-20); Calcium 9.2 mg/dL (8.4-10.2); Hemolysis Index 4
[2019-06-16] MEDS: FUROSEMIDE 20 MG TAB PO SCH (06:05)
[2019-06-16] MEDS: INSULIN LISPRO 100 UNIT/ML SUB-Q SCH ×4 (06:06→23:07)
[2019-06-16 06:42] LABS: Total Cells Counted 100
[2019-06-16 06:43] LABS: Basophils % (Manual) 0 % (0.0-1.8); Eosinophils % (Manual) 0 % (0.0-4.3)
[2019-06-16 06:44] LABS: Platelet Estimate Consistent w Auto; Stomatocytes Few
--- NOTE | 2019-06-16 10:31 | Event Note ---
Date: 06/16/19 Consult request received. We primarily will place a PEG on intubated patient only. GI and IR usually place PEGs on non-intubated patients. This was communicated to Dr. Torres.
[2019-06-16] MEDS: ENOXAPARIN 40 MG/0.4 ML INJ SUB-Q SCH ×2 (13:04→13:06)
[2019-06-16] MEDS: levETIRAcetam 500 MG/5 ML ORAL LIQD PO SCH ×2 (13:07→21:42)
[2019-06-16] MEDS: MINOXIDIL 2.5 MG TAB PO SCH ×2 (13:07→21:42)
[2019-06-16] MEDS: FAMOTIDINE 20 MG TAB PO SCH (13:08)
[2019-06-16] MEDS ORDERED: BUMETANIDE 1 MG/4 ML INJ IV ONE (14:43)
--- NOTE | 2019-06-16 14:43 | Progress Note ---
Assessment and Plan - Patient Problems (1) Acute kidney injury Current Visit: Yes Status: Acute Plan to address problem: Acute kidney injury improving Baseline creatinine unknown Kidney function is improving Chest x-ray with concern for Bibasilar haziness? pulmonary congestion He is no longer dialysis dependent Will give Bumex 1mg again today Plan to remove PermCath on Friday if renal function continues to be stable (2) Hypercapnic respiratory failure Current Visit: Yes Status: Acute Qualifiers: Chronicity: acute on chronic Qualified Code(s): J96.22 - Acute and chronic respiratory failure with hypercapnia Plan to address problem: Acute on chronic respiratory failure with hypercapnia Patient is currently intubated chest x-ray with some concern for bibasilar haziness Given morbid obesity. Obesity hypoventilation Wean oxygen as tolerated (3) Anemia Current Visit: Yes Status: Acute Plan to address problem: Mild anemia Monitor CBC (4) Anemia Current Visit: Yes Status: Acute Plan to address problem: anemia secondary to chronic inflammation and underlying acute illness Monitor CBC Subjective Principal diagnosis: HF; acute hypoxemic resp failure, SIRS, CARLA Interval history: 34-year-old gentleman with morbid obesity, found with cyanosis difficulty with breathing and brought to the emergency room he required intubation review of systems unobtainable patient remains intubated and FiO2 100% he has had worsening renal function nephrology consulted for this. He was subsequently found to have a fever infectious diseases is following she initially related improvement. Acute kidney injury, subsequent worsening in the setting of elevated vancomycin levels Patient seen remains on 50% Ventimask Unable to assess urine output however has been voiding repeatedly with improving numbers Has lower extremity edema Currently off hemodialysis Objective - Vital Signs Vital signs: Vital Signs - 12hr 06/16/19 06/16/19 06/16/19 03:00 04:00 04:04 Temperature 98.6 F Pulse Rate 102 H 109 H Pulse Rate [ 112 H From Monitor] Respiratory 26 H 27 H Rate Blood Pressure 132/45 135/47 O2 Sat by Pulse 100 99 Oximetry 06/16/19 06/16/19 06/16/19 05:00 06:00 06:05 Temperature Pulse Rate 107 H 109 H 109 H Pulse Rate [ From Monitor] Respiratory 28 H 22 Rate Blood Pressure 122/73 131/78 131/78 O2 Sat by Pulse 95 100 Oximetry 06/16/19 06/16/19 06/16/19 07:59 08:00 13:11 Temperature 98.5 F Pulse Rate 115 H Pulse Rate [ From Monitor] Respiratory Rate Blood Pressure O2 Sat by Pulse 96 Oximetry - General Appearance General appearance: well-developed, well-nourished EENT: ATNC, PERRL Neck: no JVD Respiratory: Present: Decreased Breath Sounds Cardiology: regular, S1S2 Gastrointestinal: normal, normoactive bowel sounds Integumentary: no rash Neurologic: alert and oriented x3, CN 3-12 intact Musculoskeletal: deferred Psychiatric: depressed - Lab 06/16/19 05:00 06/16/19 05:00 Most recent lab results ABG pH 7.480 pH Units (7.350-7.450) H 06/07/19 04:30 ABG pCO2 37.4 mm Hg 06/07/19 04:30 ABG pO2 77.0 mm Hg (80.0-90.0) L 06/07/19 04:30 ABG HCO3 27.2 mmol/L (20.0-26.0) H 06/07/19 04:30 ABG O2 Saturation 96.7 % (95.0-99.0) 06/07/19 04:30 Calcium 9.2 mg/dL (8.4-10.2) 06/16/19 05:00 Phosphorus 3.70 mg/dL (2.5-4.5) 06/10/19 05:45 Magnesium 1.40 mg/dL (1.7-2.3) L 06/12/19 03:21 Urine Creatinine 292.8 mg/dL (0.1-20.0) H 05/07/19 22:40 Urine Sodium 11 mmol/L 05/07/19 22:40 Urine Total Protein 269 mg/dL (5-11.8) H 05/07/19 22:40 - Imaging Chest x-ray: image reviewed (review chest x-ray with some pulmonary congestion) Medications & Allergies - Medications Allergies/Adverse Reactions: Allergies No Known Allergies Allergy (Verified 05/01/19 20:27) Home Medications: Home Medications Medication Instructions Recorded Confirmed Last Taken Type No Known Home Medications [No 05/03/19 05/03/19 Unknown History Reported Home Medications] Active Medications: Generic Name Dose Route Start Last Admin Trade Name Freq PRN Reason Stop Dose Admin Albumin Human 25 gm 05/19/19 10:47 Alburx 25% (Albumin) IV ARIANE PRN Hypotension Lipase/Protease/Amylase 1 each 05/14/19 15:01 German Fletcher 10,500 Unit FEEDTUBE PRN PRN For Clogged Feeding Tube Clonidine HCl 0.3 mg 06/06/19 20:00 06/13/19 20:28 Catapres-Tts Patch TD 0.3 mg Lao VICKEY Administration Dextrose 50 gm 05/01/19 20:24 D50w (25gm) Vial IV Q30MIN PRN Hypoglycemia Protocol Enoxaparin Sodium 40 mg 06/16/19 10:00 06/16/19 13:06 Enoxaparin SUB-Q Not Given QDAY@1000 VICKEY Famotidine 20 mg 05/16/19 10:00 06/16/19 13:08 Pepcid PO 20 mg DAILY VICKEY Administration Furosemide 20 mg 06/15/19 16:00 06/16/19 06:05 Lasix PO 20 mg DAILY@0600 VICKEY Administration Insulin Glargine 15 units 06/16/19 22:00 Lantus SUB-Q QHS [facility] Insulin Human Lispro 0 unit 06/01/19 14:00 06/16/19 13:11 Humalog SUB-Q 6 unit Q6HR VICKEY Administration Protocol Labetalol HCl 10 mg 06/11/19 22:48 06/12/19 01:20 Labetalol IV 10 mg Q4H PRN Administration BP >170/105; hold for HR <60 Labetalol HCl 200 mg 06/13/19 11:36 06/16/19 13:11 Labetalol PO 200 mg Q8HR VICKEY Administration Levetiracetam 750 mg 06/16/19 10:00 06/16/19 13:07 Keppra PO 750 mg BID VICKEY Administration Methylprednisolone Sodium Succinate 20 mg 06/14/19 18:00 06/16/19 13:08 Solu-Medrol IV 20 mg Q8H VICKEY Administration Minoxidil 2.5 mg 06/06/19 22:00 06/16/19 13:07 Loniten PO 2.5 mg BID VICKEY Administration Simple Syrup 15 ml 05/14/19 15:01 Simple Syrup FEEDTUBE PRN PRN Hypoglycemia Simple Syrup 30 ml 05/14/19 15:01 Simple Syrup FEEDTUBE PRN PRN Hypoglycemia Sodium Bicarbonate 325 mg 05/14/19 15:01 Sodium Bicarbonate FEEDTUBE PRN PRN For Clogged Feeding Tube
[2019-06-16] MEDS ORDERED: BUMETANIDE 2.5 MG/10 ML VIAL IV SCH (15:00)
--- NOTE | 2019-06-16 15:55 | Progress Note ---
Assessment and Plan Assessment and plan: 34-year-old man with morbid obesity was brought to the hospital for shortness of breath and insomnia. He was found to have severe hypoxia and bradycardia who then became pulseless, he was cyanotic and he was intubated after receiving CPR with 2 rounds of epinephrine. Hypertensive emergency cont bp meds off cardene drip since 06/13 Acute respiratory failure with hypoxia on mechanical ventilator greater than 96 hours -Obesity hypoventilation Patient extubated 06/07 after being on the ventilator for 37 days, continue NIV at bedtime. Continue oxygen supplement in the daytime. on 50% ventimask, cont to wean o2 Status post cardiac arrest anoxic/ischemic brain injury Patient's mentation is improved ., EEG was negative for seizures and neurology consult appreciated. Severe malnutrition Dysphasia; dw with his mom, she is agreeable to PEG tube, GS consulted Continue speech therapy, continue scopolamine as patient had copious secretions, suctioning as needed -Dietitian input appreciated, continue tube feeds Acute kidney injury due to ATN Dialysis now put on hold, kidney function improving Nephrology input appreciated, tolerating diuretics -PC will be dc by neph if continues to improve Fluid overload Continue diuretics, being dosed by risk officer Morbid obesity; will need weight loss program upon discharge DVT prophylaxis; Lovenox Disposition; does not have a pay source for rehab, therefore home with home health services Downgrade to [facility] NOK is mom; Cecelia Jay [phone] History Interval history: No fevers No vomiting no seizure-like activity No diarrhea No agitation No obvious discomfort Hospitalist Physical - Physical exam Narrative exam: General.: Morbidly obese HEENT: Moist mucous membranes, extraocular muscles intact, no lymphadenopathy Neck: supple Cardiac: S1-S2 heard Lungs: clear to auscultation bilaterally Abdomen: soft , nontender, nondistended, bowel sounds positive Extremities: edema in all extremities Skin: no rash or lesions Neurologic: He is awake and alert. He is currently nonverbal. But he nods and shakes his head. He obeys commands Psych: calm, - Constitutional Vitals: Temp Pulse Resp BP Pulse Ox 98.5 F 115 H 22 131/78 96 06/16/19 08:00 06/16/19 13:11 06/16/19 06:00 06/16/19 06:05 06/16/19 07:59 General appearance: Present: no acute distress Results - Labs CBC & Chem 7: 06/16/19 05:00 06/16/19 05:00 Labs: Laboratory Last Values WBC 11.9 K/mm3 (4.5-11.0) H 06/16/19 05:00 RBC 3.24 M/mm3 (3.65-5.03) L 06/16/19 05:00 Hgb 9.0 gm/dl (11.8-15.2) L 06/16/19 05:00 Hct 29.0 % (35.5-45.6) L 06/16/19 05:00 MCV 90 fl (84-94) 06/16/19 05:00 MCH 28 pg (28-32) 06/16/19 05:00 MCHC 31 % (32-34) L 06/16/19 05:00 RDW 18.6 % (13.2-15.2) H 06/16/19 05:00 Plt Count 111 K/mm3 (140-440) L 06/16/19 05:00 Lymph % (Auto) 10.6 % (13.4-35.0) L 06/12/19 03:21 [place] % (Auto) 8.6 % (0.0-7.3) H 06/12/19 03:21 Eos % (Auto) 0.0 % (0.0-4.3) 06/12/19 03:21 Baso % (Auto) 0.2 % (0.0-1.8) 06/12/19 03:21 Lymph # 1.3 K/mm3 (1.2-5.4) 06/12/19 03:21 [place] # 1.0 K/mm3 (0.0-0.8) H 06/12/19 03:21 Eos # 0.0 K/mm3 (0.0-0.4) 06/12/19 03:21 Baso # 0.0 K/mm3 (0.0-0.1) 06/12/19 03:21 Add Manual Diff Complete 06/16/19 05:00 Total Counted 100 06/16/19 05:00 Seg Neutrophils % Online Marketing Specialist 06/16/19 05:00 Seg Neuts % (Manual) 92.0 % (40.0-70.0) H 06/16/19 05:00 Band Neutrophils % 0 % 06/16/19 05:00 Lymphocytes % (Manual) 2.0 % (13.4-35.0) L 06/16/19 05:00 Reactive Lymphs % (Man) 0 % 06/16/19 05:00 Monocytes % (Manual) 6.0 % (0.0-7.3) 06/16/19 05:00 Eosinophils % (Manual) 0 % (0.0-4.3) 06/16/19 05:00 Basophils % (Manual) 0 % (0.0-1.8) 06/16/19 05:00 Metamyelocytes % 0 % 06/16/19 05:00 Myelocytes % 0 % 06/16/19 05:00 Promyelocytes % 0 % 06/16/19 05:00 Blast Cells % 0 % 06/16/19 05:00 Nucleated RBC % Not Reportable 06/16/19 05:00 Seg Neutrophils # 9.6 K/mm3 (1.8-7.7) H 06/12/19 03:21 Seg Neutrophils # Man 10.9 K/mm3 (1.8-7.7) H 06/16/19 05:00 Band Neutrophils # 0.0 K/mm3 06/16/19 05:00 Lymphocytes # (Manual) 0.2 K/mm3 (1.2-5.4) L 06/16/19 05:00 Abs React Lymphs (Man) 0.0 K/mm3 06/16/19 05:00 Monocytes # (Manual) 0.7 K/mm3 (0.0-0.8) 06/16/19 05:00 Eosinophils # (Manual) 0.0 K/mm3 (0.0-0.4) 06/16/19 05:00 Basophils # (Manual) 0.0 K/mm3 (0.0-0.1) 06/16/19 05:00 Metamyelocytes # 0.0 K/mm3 06/16/19 05:00 Myelocytes # 0.0 K/mm3 06/16/19 05:00 Promyelocytes # 0.0 K/mm3 06/16/19 05:00 Blast Cells # 0.0 K/mm3 06/16/19 05:00 WBC Morphology Not Reportable 06/16/19 05:00 Hypersegmented Neuts Not Reportable 06/16/19 05:00 Hyposegmented Neuts Not Reportable 06/16/19 05:00 Hypogranular Neuts Not Reportable 06/16/19 05:00 Smudge Cells Not Reportable 06/16/19 05:00 Toxic Granulation Not Reportable 06/16/19 05:00 Toxic Vacuolation Not Reportable 06/16/19 05:00 Dohle Bodies Not Reportable 06/16/19 05:00 Pelger-Huet Anomaly Not Reportable 06/16/19 05:00 Renea Rods Not Reportable 06/16/19 05:00 Platelet Estimate Consistent w auto 06/16/19 05:00 Clumped Platelets Not Reportable 06/16/19 05:00 Plt Clumps, EDTA Not Reportable 06/16/19 05:00 Large Platelets Not Reportable 06/16/19 05:00 Giant Platelets Not Reportable 06/16/19 05:00 Platelet Satelliting Not Reportable 06/16/19 05:00 Plt Morphology Comment Not Reportable 06/16/19 05:00 RBC Morphology Not Reportable 06/16/19 05:00 Dimorphic RBCs Not Reportable 06/16/19 05:00 Polychromasia Not Reportable 06/16/19 05:00 Hypochromasia Not Reportable 06/16/19 05:00 Poikilocytosis Not Reportable 06/16/19 05:00 Anisocytosis Not Reportable 06/16/19 05:00 Microcytosis Not Reportable 06/16/19 05:00 Macrocytosis Not Reportable 06/16/19 05:00 Spherocytes Not Reportable 06/16/19 05:00 Pappenheimer Bodies Not Reportable 06/16/19 05:00 Sickle Cells Not Reportable 06/16/19 05:00 Target Cells Not Reportable 06/16/19 05:00 Tear Drop Cells Not Reportable 06/16/19 05:00 Ovalocytes Not Reportable 06/16/19 05:00 Stomatocytes Few 06/16/19 05:00 Helmet Cells Not Reportable 06/16/19 05:00 [place] Bodies Not Reportable 06/16/19 05:00 [place] Rings Not Reportable 06/16/19 05:00 Dennis Cells Not Reportable 06/16/19 05:00 Bite Cells Not Reportable 06/16/19 05:00 Crenated Cell Not Reportable 06/16/19 05:00 Elliptocytes Not Reportable 06/16/19 05:00 Acanthocytes (Spur) Not Reportable 06/16/19 05:00 Rouleaux Not Reportable 06/16/19 05:00 Hemoglobin C Crystals Not Reportable 06/16/19 05:00 Schistocytes Not Reportable 06/16/19 05:00 Malaria parasites Not Reportable 06/16/19 05:00 Syed Bodies Not Reportable 06/16/19 05:00 Hem Pathologist Commnt No 06/16/19 05:00 PT 15.4 Sec. (12.2-14.9) H 05/01/19 Unknown INR 1.23 (0.87-1.13) H 05/01/19 Unknown APTT 22.7 Sec. (24.2-36.6) L 05/01/19 Unknown POC ABG pH 7.462 (7.35-7.45) H 06/05/19 03:52 ABG pH 7.480 pH Units (7.350-7.450) H 06/07/19 04:30 POC ABG pCO2 39.8 (35-45) 06/05/19 03:52 ABG pCO2 37.4 mm Hg 06/07/19 04:30 POC ABG pO2 86 (80-105) 06/05/19 03:52 ABG pO2 77.0 mm Hg (80.0-90.0) L 06/07/19 04:30 POC ABG HCO3 28.4 (22-26 mml/L) 06/05/19 03:52 ABG HCO3 27.2 mmol/L (20.0-26.0) H 06/07/19 04:30 POC ABG Total CO2 30 (23-27mmol/L) 06/05/19 03:52 POC ABG O2 Sat 97 06/05/19 03:52 ABG O2 Saturation 96.7 % (95.0-99.0) 06/07/19 04:30 ABG O2 Content 9.5 (0.0-44) 06/07/19 04:30 POC ABG Base Excess 5 ((-2) - (+3)mmol/L) 06/05/19 03:52 ABG Base Excess 3.5 mmol/L (-2.0-3.0) H 06/07/19 04:30 ABG Hemoglobin 7.1 gm/dl (14.0-18.0) L 06/07/19 04:30 ABG Carboxyhemoglobin 2.1 % (0.0-5.0) 06/07/19 04:30 ABG Methemoglobin 0.4 % (0.0-1.5) 06/07/19 04:30 Oxyhemoglobin 94.2 % (95.0-99.0) L 06/07/19 04:30 FiO2 30 % 06/07/19 04:30 Sodium 145 mmol/L (137-145) 06/16/19 05:00 Potassium 4.7 mmol/L (3.6-5.0) 06/16/19 05:00 Chloride 100.9 mmol/L (98-107) 06/16/19 05:00 Carbon Dioxide 33 mmol/L (22-30) H 06/16/19 05:00 Anion Gap 16 mmol/L 06/16/19 05:00 BUN 49 mg/dL (9-20) H 06/16/19 05:00 Creatinine 0.7 mg/dL (0.8-1.5) L 06/16/19 05:00 Estimated GFR > 60 ml/min 06/16/19 05:00 BUN/Creatinine Ratio 70 % 06/16/19 05:00 Glucose 264 mg/dL (75-100) H 06/16/19 05:00 POC Glucose 252 (70-105) H 06/16/19 12:03 Osmolality 327 Mosm/kg 05/07/19 13:45 Uric Acid 18.0 mg/dL (3.5-7.6) H 05/07/19 13:45 Calcium 9.2 mg/dL (8.4-10.2) 06/16/19 05:00 Phosphorus 3.70 mg/dL (2.5-4.5) 06/10/19 05:45 Magnesium 1.40 mg/dL (1.7-2.3) L 06/12/19 03:21 Total Bilirubin 0.50 mg/dL (0.1-1.2) 06/08/19 04:20 AST 23 units/L (5-40) 06/08/19 04:20 ALT 66 units/L (7-56) H 06/08/19 04:20 Alkaline Phosphatase 59 units/L (35-129) 06/08/19 04:20 Total Creatine Kinase 131 units/L (55-170) 05/02/19 04:41 CK-MB (CK-2) 5.2 ng/mL (0.0-4.0) H 05/02/19 04:41 CK-MB (CK-2) Rel Index 3.9 (0-4) 05/02/19 04:41 Troponin T 0.067 ng/mL (0.00-0.029) H D 05/02/19 04:41 NT-Pro-B Natriuret Pep 6831 pg/mL (0-450) H 05/01/19 Unknown Total Protein 5.5 g/dL (6.3-8.2) L 06/08/19 04:20 Albumin 2.9 g/dL (3.9-5) L 06/08/19 04:20 Albumin/Globulin Ratio 1.1 % 06/08/19 04:20 Triglycerides 173 mg/dL (2-149) H 05/17/19 Unknown Cholesterol 173 mg/dL (50-199) 05/02/19 00:06 LDL Cholesterol Direct 126 mg/dL (50-130) 05/02/19 00:06 HDL Cholesterol 18 mg/dL (40-59) L 05/02/19 00:06 Cholesterol/HDL Ratio 9.61 % 05/02/19 00:06 Procalcitonin 0.54 ng/mL (<0.15) 05/03/19 11:52 Urine Color Yellow (Yellow) 05/20/19 12:00 Urine Turbidity Cloudy (Clear) 05/20/19 12:00 Urine pH 5.0 (5.0-7.0) 05/20/19 12:00 Ur Specific [place] 1.015 (1.003-1.030) 05/20/19 12:00 Urine Protein 30 mg/dl mg/dL (Negative) 05/20/19 12:00 Urine Glucose (UA) Neg mg/dL (Negative) 05/20/19 12:00 Urine Ketones Neg mg/dL (Negative) 05/20/19 12:00 Urine Blood Lg (Negative) 05/20/19 12:00 Urine Nitrite Neg (Negative) 05/20/19 12:00 Urine Bilirubin Neg (Negative) 05/20/19 12:00 Urine Urobilinogen < 2.0 mg/dL (<2.0) 05/20/19 12:00 Ur Leukocyte Esterase Mod (Negative) 05/20/19 12:00 Urine WBC (Auto) 26.0 /HPF (0.0-6.0) H 05/20/19 12:00 Urine RBC (Auto) 83.0 /HPF (0.0-6.0) 05/20/19 12:00 Urine Bacteria (Auto) 1+ /HPF (Negative) 05/20/19 12:00 Uric Acid Crystals 3+ 05/03/19 10:55 Urine Mucus Few /HPF 05/20/19 12:00 Urine Yeast (Budding) 3+ /HPF 05/20/19 12:00 Urine Creatinine 292.8 mg/dL (0.1-20.0) H 05/07/19 22:40 Urine Sodium 11 mmol/L 05/07/19 22:40 Urine Total Protein 269 mg/dL (5-11.8) H 05/07/19 22:40 Vancomycin Trough 20.5 ug/mL (5.0-20.0) H 05/15/19 09:00 Random Vancomycin 11.5 ug/mL (0-40.0) 05/27/19 06:00 ANMA Screen Negative (Negative) 05/07/19 13:45 Hepatitis A IgM Ab Non-reactive (NonReactive) 05/07/19 13:45 Hep Bs Antigen Non-reactive (Negative) 05/07/19 13:45 Hep B Core IgM Ab Non-reactive (NonReactive) 05/07/19 13:45 Hepatitis C Antibody Non-reactive (NonReactive) 05/07/19 13:45 Active Medications - Current Medications Current Medications: Generic Name Dose Route Start Last Admin Trade Name Freq PRN Reason Stop Dose Admin Albumin Human 25 gm 05/19/19 10:47 Alburx 25% (Albumin) IV ARIANE PRN Hypotension Lipase/Protease/Amylase 1 each 05/14/19 15:01 Pancreaze 10,500 Unit FEEDTUBE PRN PRN For Clogged Feeding Tube Bumetanide 1 mg 06/16/19 15:00 Bumex IV 06/16/19 17:00 ONCE VICKEY Clonidine HCl 0.3 mg 06/06/19 20:00 06/13/19 20:28 Catapres-Tts Patch TD 0.3 mg Lao VICKEY Administration Dextrose 50 gm 05/01/19 20:24 D50w (25gm) Vial IV Q30MIN PRN Hypoglycemia Protocol Enoxaparin Sodium 40 mg 06/16/19 10:00 06/16/19 13:06 Enoxaparin SUB-Q Not Given QDAY@1000 [facility] Famotidine 20 mg 05/16/19 10:00 06/16/19 13:08 Pepcid PO 20 mg DAILY VICKEY Administration Furosemide 20 mg 06/15/19 16:00 06/16/19 06:05 Lasix PO 20 mg DAILY@0600 [facility] Administration Insulin Glargine 15 units 06/16/19 22:00 Lantus SUB-Q QHS VICKEY Insulin Human Lispro 0 unit 06/01/19 14:00 06/16/19 13:11 Humalog SUB-Q 6 unit Q6HR VICKEY Administration Protocol Labetalol HCl 10 mg 06/11/19 22:48 06/12/19 01:20 Labetalol IV 10 mg Q4H PRN Administration BP >170/105; hold for HR <60 Labetalol HCl 200 mg 06/13/19 11:36 06/16/19 13:11 Labetalol PO 200 mg Q8HR VICKEY Administration Levetiracetam 750 mg 06/16/19 10:00 06/16/19 13:07 Keppra PO 750 mg BID VICKEY Administration Methylprednisolone Sodium Succinate 20 mg 06/14/19 18:00 06/16/19 13:08 Solu-Medrol IV 20 mg Q8H VICKEY Administration Minoxidil 2.5 mg 06/06/19 22:00 06/16/19 13:07 Loniten PO 2.5 mg BID VICKEY Administration Simple Syrup 15 ml 05/14/19 15:01 Simple Syrup FEEDTUBE PRN PRN Hypoglycemia Simple Syrup 30 ml 05/14/19 15:01 Simple Syrup FEEDTUBE PRN PRN Hypoglycemia Sodium Bicarbonate 325 mg 05/14/19 15:01 Sodium Bicarbonate FEEDTUBE PRN PRN For Clogged Feeding Tube Nutrition/Malnutrition Assess - Dietary Evaluation Nutrition/Malnutrition Findings: Nutrition Notes Start: 05/04/19 12:54 Freq: Status: Active Protocol: Document 06/16/19 12:24 CW (Rec: 06/16/19 12:34 CW [id number]) Co-Sign 06/16/19 12:24 LP Nutrition Notes Initial or Follow up Reassessment Current Diagnosis Acute Kidney Injury,Sepsis, Respiratory Failure Other Pertinent Diagnosis HD Current Diet Nepro 1.8 at 50 ml/hr Labs/Tests BUN 49 BG 264 Cr 0.7 Pertinent Medications Humalog Solumedrol Height 6 ft 4 in Weight 257.2 kg [place] Body Weight (kg) 91.81 BMI 69.0 Weight change and time frame No wt change noted Weight Status Morbidly Obese Subjective/Other Information F/U for diet advancement. 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 PO not recommended. TF restarted and is being tolerated Percent of energy/protein needs met: 100%/43% Burn Absent Trauma Absent GI Symptoms None Current % PO Negligible Minimum of two criteria No physical signs of malnutrition #1 Nutrition Diagnosis Inadequate oral intake Diagnosis Progress(for reassessment Continues documentation) Is patient on ventilator? No Is Patient Ambulatory and/or Out of Bed No REE-([facility]-confined to bed) 4342.284 Kcal/Kg value to use for calculation 8 Approximate Energy Requirements Using 8 kcal/Kg Calculation Used for Recommendations Kcal/kg Additional Notes PRO needs: 73 - 91 g (0.8 - 1 g/kg IBW) Fluid needs: 1 ml/kcal Nutrition Intervention Change Diet Order: Continue TF Nutrition Support: Nepro 1.8 at 50 ml/hr Flush with 250ml q4h Kcal 2,160 Protein (gm) 97 Fluid (mL) 872 Goal #1 TF tolerance [ End ] Goal #2 Meet at least 75% kcal/PRO needs via TF Anticipated Discharge Needs: Unable to determine at this time Follow-Up By: 06/23/19 Additional Comments F/U TF tolerance
[2019-06-16] MEDS ORDERED: propofoL 200 MG/20 ML VIAL IV ONE ×2 (16:34→16:52)
--- NOTE | 2019-06-16 16:44 | Event Note ---
Date: 06/16/19 CODE KRYSTAL called. On my arrival patient's pulse had been already returned. Nevertheless patient was having difficulty breathing requiring reintubation de- satted down to the mid 20s but was able to be reintubated by the help of anesthesia. Saturation improved rather rapidly following intubation. Will obtain chest x-ray ABG Notified primary attending and caramel cutter machine Nursing staff will notify family Critical care time 35 minutes
--- NOTE | 2019-06-16 16:50 | Event Note ---
Date: 06/16/19 Emergent Intubation in ICU (16:29-16:40) Called for stat intubation for hypercarbic respiratory failure in a recently extubated patient (with prolonged intubation history > 40days) who failed BiPAP. K+ - 4.7. Free flowing IV along with suction at bedside, critical care team. Preoxygenated with ambubag for > 5 minutes while obtaining preinduction meds. 200mg IV propofol + 200mg IV succinycholine given through IV. Glidescope S4 used with stylet Gr III view, 7.5 ETT at 24 cm secured with tube noguera. Atraumatic intubation with teeth intact. CXR to follow per ICU attending Dr. Posey, Staff Anesthesiologist
[2019-06-16] MEDS ORDERED: SUCCINYLCHOLINE CHLORIDE 200 MG/10 ML INJ MDV IV NR (16:52)
--- NOTE | 2019-06-16 17:18 | XRay Report ---
CHEST 1 VIEW INDICATION / CLINICAL INFORMATION: RESPIRATORY FAILURE. COMPARISON: 06/15/2019 FINDINGS: SUPPORT DEVICES: Stable, satisfactory device positioning. HEART / MEDIASTINUM: Stable. LUNGS / PLEURA: No significant pulmonary or pleural abnormality. No pneumothorax. ADDITIONAL FINDINGS: No significant additional findings. IMPRESSION: 1. No acute findings. Signer Name: Christoph Vazquez MD Signed: 06/16/2019 5:13 PM Workstation Name: [id number]
[2019-06-16 17:22] LABS: ABG Base Excess 2.7 mmol/L (-2.0-3.0); ABG HCO3 30.1 mmol/L (20.0-26.0); ABG Methemoglobin 0.6 % (0.0-1.5); ABG Oxygen Saturation 99.6 % (95.0-99.0); ABG PCO2 64.3 mm Hg; ABG PH 7.289 pH Units (7.350-7.450)
[2019-06-16 17:23] LABS: ABG PO2 399.3 mm Hg (80.0-90.0)
[2019-06-16] MEDS ORDERED: LIP THERAPY VASELINE TP PRN (17:34)
[2019-06-16] MEDS ORDERED: MINERAL OIL/PETROLATUM, WHITE OPHTH OINT 3.5 GM OU PRN (18:00)
--- NOTE | 2019-06-16 18:28 | XRay Report ---
ABDOMEN 1 VIEW 6:04 PM INDICATION / CLINICAL INFORMATION: NG tube placement. COMPARISON: 06/12/2019 FINDINGS: TUBES / LINES: There is a nasogastric tube with the tip overlying the distal stomach. BOWEL GAS PATTERN: There are a few gas filled loops of nondilated small bowel, new since the prior . FREE AIR / EXTRALUMINAL GAS: None seen. ADDITIONAL FINDINGS: No significant additional findings. IMPRESSION: Nasogastric tube tip overlies the distal stomach. Signer Name: Malcom Tran MD Signed: 06/16/2019 6:24 PM Workstation Name: [id number]
[2019-06-16] MEDS: INSULIN GLARGINE 100 UNITS/ML SUB-Q SCH (21:43)
--- NOTE | 2019-06-16 22:59 | XRay Report ---
CHEST 1 VIEW INDICATION: ETT placement. COMPARISON: Earlier the same day FINDINGS: SUPPORT DEVICES: Endotracheal tubes in good position. Nasogastric tube has tip below diaphragm. Hemod ialysis catheters tip in superior vena cava HEART / MEDIASTINUM: No significant abnormality. LUNGS / PLEURA: No significant pulmonary or pleural abnormality. No pneumothorax. ADDITIONAL FINDINGS: IMPRESSION: 1. No acute cardiopulmonary disease Signer Name: Johnathan Castle MD Signed: 06/16/2019 10:54 PM Workstation Name: [id number]
[2019-06-17] MEDS: methylPREDNISolone Sod Succinate 40 MG/1 ML INJ IV SCH ×2 (02:13→09:44)
[2019-06-17 05:21] LABS: ABG Base Excess 10.6 mmol/L (-2.0-3.0); ABG HCO3 33.6 mmol/L (20.0-26.0); ABG Methemoglobin 0.4 % (0.0-1.5); ABG Oxygen Saturation 99.4 % (95.0-99.0); ABG PH 7.564 pH Units (7.350-7.450); ABG PO2 238.6 mm Hg (80.0-90.0)
[2019-06-17 06:38] LABS: BUN/Creatinine Ratio 60; Blood Urea Nitrogen 60 mg/dL (9-20); Calcium 9.6 mg/dL (8.4-10.2); Hemolysis Index 2
[2019-06-17] MEDS: INSULIN LISPRO 100 UNIT/ML SUB-Q SCH ×3 (06:44→18:39)
[2019-06-17] MEDS: FUROSEMIDE 20 MG TAB PO SCH (06:45)
--- NOTE | 2019-06-17 08:34 | XRay Report ---
CHEST 1 VIEW INDICATION: follow up respiratory failure. COMPARISON: 06/16/2019 FINDINGS: Support devices: The endotracheal and nasogastric tubes are satisfactory. Right PICC line tip is in t he distal SVC and unchanged. Left Vas-Cath tip is in the distal SVC.. Heart: Within normal limits. Lungs/Pleura: Mild bibasal streaky opacities some of which are vascular. No pulmonary consolidation. No pleural effusion. Additional findings: None. IMPRESSION: 1. Mild bibasal subsegmental atelectasis. 2. No CHF or pneumonia. Signer Name: Ish Christiansen MD Signed: 06/17/2019 8:30 AM Workstation Name: [id number]
[2019-06-17] MEDS ORDERED: ACETAMINOPHEN 325 MG TAB PO PRN (09:23)
[2019-06-17] MEDS: FAMOTIDINE 20 MG TAB PO SCH ×2 (09:43→21:45)
[2019-06-17] MEDS: ENOXAPARIN 40 MG/0.4 ML INJ SUB-Q SCH (09:43)
[2019-06-17] MEDS: ACETAMINOPHEN 325 MG/10.15 ML ORAL LIQD UNIT DOSE PO PRN ×2 (09:44→21:20)
[2019-06-17] MEDS: levETIRAcetam 500 MG/5 ML ORAL LIQD PO SCH ×3 (09:45→21:26)
[2019-06-17] MEDS: MINOXIDIL 2.5 MG TAB PO SCH ×2 (09:47→21:21)
[2019-06-17 10:16] LABS: Hematocrit 24.6 % (35.5-45.6); Hemoglobin 8.2 gm/dl (11.8-15.2); Mean Corpuscular HGB Conc 33 % (32-34); Mean Corpuscular Volume 88 fl (84-94); Red Blood Count 2.79 M/mm3 (3.65-5.03); Red Cell Distribution Width 18.5 % (13.2-15.2)
[2019-06-17 10:17] LABS: Platelet Count 95 K/mm3 (140-440)
--- NOTE | 2019-06-17 10:59 | Progress Note ---
Assessment and Plan - Patient Problems (1) Acute kidney injury Current Visit: Yes Status: Acute Plan to address problem: Acute kidney injury Baseline creatinine unknown Current creatinin 1.0 Kidney function is improving Chest x-ray with improvement in lung aeration He is no longer dialysis dependent Plan to remove PermCath on Friday if renal function continues to be stable (2) Hypercapnic respiratory failure Current Visit: Yes Status: Acute Qualifiers: Chronicity: acute on chronic Qualified Code(s): J96.22 - Acute and chronic respiratory failure with hypercapnia Plan to address problem: Acute on chronic respiratory failure with hypercapnia Was reintubated following desaturation episodes Patient is currently intubated chest x-ray with improvement in lung aeration Given morbid obesity. Obesity hypoventilation Wean oxygen as tolerated (3) Anemia Current Visit: Yes Status: Acute Plan to address problem: Mild anemia Monitor CBC (4) Anemia Current Visit: Yes Status: Acute Plan to address problem: anemia secondary to chronic inflammation and underlying acute illness Monitor CBC Subjective Principal diagnosis: HF; acute hypoxemic resp failure, SIRS, CARLA Interval history: 34-year-old gentleman with morbid obesity, found with cyanosis difficulty with breathing and brought to the emergency room he required intubation review of systems unobtainable patient remains intubated and FiO2 100% he has had worsening renal function nephrology consulted for this. He was subsequently found to have a fever infectious diseases is following she initially related improvement. Acute kidney injury, subsequent worsening in the setting of elevated vancomycin levels Patient seen He desaturated yesterday, primarily lost pulse briefly and was reintubated Has lower extremity edema Currently off hemodialysis Objective - Vital Signs Vital signs: Vital Signs - 12hr 06/16/19 06/16/19 06/16/19 23:00 23:15 23:30 Temperature Pulse Rate 100 H 90 100 H Respiratory 17 24 21 Rate Blood Pressure 138/59 120/45 150/54 O2 Sat by Pulse 100 97 97 Oximetry 06/16/19 06/16/19 06/17/19 23:41 23:45 00:00 Temperature 100.0 F H Pulse Rate 102 H 101 H Respiratory 16 18 Rate Blood Pressure 140/71 139/47 O2 Sat by Pulse 95 97 Oximetry 06/17/19 06/17/19 06/17/19 00:15 00:30 00:43 Temperature Pulse Rate 101 H 102 H 103 H Respiratory 24 12 Rate Blood Pressure 131/56 123/50 137/66 O2 Sat by Pulse 95 99 99 Oximetry 06/17/19 06/17/19 06/17/19 00:45 01:00 01:15 Temperature Pulse Rate 102 H 103 H 101 H Respiratory 11 L 18 23 Rate Blood Pressure 137/66 123/61 114/61 O2 Sat by Pulse 96 99 99 Oximetry 06/17/19 06/17/19 06/17/19 01:30 01:46 02:00 Temperature Pulse Rate 102 H 104 H 103 H Respiratory 19 13 13 Rate Blood Pressure 144/80 148/88 138/73 O2 Sat by Pulse 96 99 100 Oximetry 06/17/19 06/17/19 06/17/19 02:15 02:30 02:45 Temperature Pulse Rate 105 H 104 H 102 H Respiratory 14 29 H 17 Rate Blood Pressure 125/58 131/47 140/63 O2 Sat by Pulse 100 96 100 Oximetry 06/17/19 06/17/19 06/17/19 03:00 03:15 03:30 Temperature Pulse Rate 98 H 93 H 95 H Respiratory 24 24 24 Rate Blood Pressure 112/45 123/52 150/81 O2 Sat by Pulse 96 98 95 Oximetry 06/17/19 06/17/19 06/17/19 03:45 04:00 04:15 Temperature 99.9 F H Pulse Rate 96 H 96 H 94 H Respiratory 24 24 23 Rate Blood Pressure 126/56 125/52 135/63 O2 Sat by Pulse 94 98 99 Oximetry 06/17/19 06/17/19 06/17/19 04:21 04:30 04:45 Temperature Pulse Rate 101 H 102 H 104 H Respiratory 24 18 Rate Blood Pressure 135/63 153/77 153/75 O2 Sat by Pulse 99 99 96 Oximetry 06/17/19 06/17/19 06/17/19 05:00 05:15 05:30 Temperature Pulse Rate 106 H 104 H 105 H Respiratory 16 21 24 Rate Blood Pressure 137/61 127/60 134/55 O2 Sat by Pulse 97 97 96 Oximetry 06/17/19 06/17/19 06/17/19 05:45 06:00 06:15 Temperature Pulse Rate 105 H 102 H 101 H Respiratory 21 24 25 H Rate Blood Pressure 127/59 126/52 124/51 O2 Sat by Pulse 94 97 96 Oximetry 06/17/19 06/17/19 06/17/19 06:30 06:44 06:45 Temperature Pulse Rate 100 H 107 H 108 H Respiratory 24 18 Rate Blood Pressure 122/54 122/54 136/80 O2 Sat by Pulse 97 95 Oximetry 06/17/19 06/17/19 06/17/19 07:00 07:15 07:30 Temperature Pulse Rate 109 H 105 H 105 H Respiratory 15 15 13 Rate Blood Pressure 139/70 125/69 131/45 O2 Sat by Pulse 97 96 96 Oximetry 06/17/19 06/17/19 06/17/19 07:45 08:00 08:15 Temperature 102.0 F H Pulse Rate 105 H 107 H 102 H Respiratory 20 22 24 Rate Blood Pressure 114/48 110/39 110/39 O2 Sat by Pulse 97 97 97 Oximetry 06/17/19 06/17/19 06/17/19 08:30 08:45 09:00 Temperature Pulse Rate 98 H 102 H 106 H Respiratory 24 24 11 L Rate Blood Pressure 115/42 124/54 134/60 O2 Sat by Pulse 98 99 96 Oximetry 06/17/19 06/17/19 06/17/19 09:15 09:29 09:30 Temperature Pulse Rate 106 H 109 H 107 H Respiratory 15 17 Rate Blood Pressure 131/46 130/51 130/51 O2 Sat by Pulse 96 100 97 Oximetry 06/17/19 06/17/19 09:45 10:00 Temperature Pulse Rate 110 H 108 H Respiratory 12 18 Rate Blood Pressure 121/59 129/52 O2 Sat by Pulse 97 98 Oximetry - General Appearance General appearance: obese EENT: ATNC, PERRL Neck: no JVD Respiratory: Present: Clear to Ascultation Cardiology: regular, S1S2 Gastrointestinal: normal, normoactive bowel sounds Integumentary: no rash Neurologic: CN 3-12 intact, other (awake) Musculoskeletal: deferred Psychiatric: depressed - Lab 06/17/19 09:50 06/17/19 05:30 Most recent lab results ABG pH 7.564 pH Units (7.350-7.450) H 06/17/19 Unknown ABG pCO2 38.0 mm Hg 06/17/19 Unknown ABG pO2 238.6 mm Hg (80.0-90.0) H 06/17/19 Unknown ABG HCO3 33.6 mmol/L (20.0-26.0) H 06/17/19 Unknown ABG O2 Saturation 99.4 % (95.0-99.0) H 06/17/19 Unknown Calcium 9.6 mg/dL (8.4-10.2) 06/17/19 05:30 Phosphorus 3.70 mg/dL (2.5-4.5) 06/10/19 05:45 Magnesium 1.40 mg/dL (1.7-2.3) L 06/12/19 03:21 Urine Creatinine 292.8 mg/dL (0.1-20.0) H 05/07/19 22:40 Urine Sodium 11 mmol/L 05/07/19 22:40 Urine Total Protein 269 mg/dL (5-11.8) H 05/07/19 22:40 Medications & Allergies - Medications Allergies/Adverse Reactions: Allergies No Known Allergies Allergy (Verified 05/01/19 20:27) Home Medications: Home Medications Medication Instructions Recorded Confirmed Last Taken Type No Known Home Medications [No 05/03/19 05/03/19 Unknown History Reported Home Medications] Active Medications: Generic Name Dose Route Start Last Admin Trade Name Freq PRN Reason Stop Dose Admin Acetaminophen 650 mg 06/17/19 10:00 06/17/19 09:44 Tylenol PO 650 mg Q6H PRN Administration FOR TEMP >/=100.4 Albumin Human 25 gm 05/19/19 10:47 Alburx 25% (Albumin) IV ARIANE PRN Hypotension Lipase/Protease/Amylase 1 each 05/14/19 15:[address] 10,500 Unit FEEDTUBE PRN PRN For Clogged Feeding Tube Clonidine HCl 0.3 mg 06/06/19 20:00 06/13/19 20:28 Catapres-Tts Patch TD 0.3 mg Lao VICKEY Administration Dextrose 50 gm 05/01/19 20:24 D50w (25gm) Vial IV Q30MIN PRN Hypoglycemia Protocol Enoxaparin Sodium 40 mg 06/16/19 10:00 06/17/19 09:43 Enoxaparin SUB-Q 40 mg QDAY@1000 VICKEY Administration Famotidine 20 mg 06/17/19 10:00 06/17/19 09:43 Pepcid PO 20 mg BID VICKEY Administration Furosemide 20 mg 06/15/19 16:00 06/17/19 06:45 Lasix PO 20 mg DAILY@0600 VICKEY Administration Hydrophilic Ointment 1 applic 06/16/19 17:34 Vaseline Lip Therapy TP Q2HR PRN Dry Lips Propofol 1,000 mg in 100 mls @ 7.716 mls/hr 06/16/19 21:00 06/17/19 09:58 Diprivan 10 Mg/Ml IV 20 mcg/kg/min TITR VICKEY 30.864 mls/hr Titration Protocol 5 MCG/KG/MIN Insulin Glargine 15 units 06/16/19 22:00 06/16/19 21:43 Lantus SUB-Q 15 units QHS VICKEY Administration Insulin Human Lispro 0 unit 06/01/19 14:00 06/17/19 06:44 Humalog SUB-Q 4 unit Q6HR [facility] Administration Protocol Labetalol HCl 10 mg 06/11/19 22:48 06/16/19 19:47 Labetalol IV 10 mg Q4H PRN Administration BP >170/105; hold for HR <60 Labetalol HCl 200 mg 06/13/19 11:36 06/17/19 06:44 Labetalol PO 200 mg Q8HR VICKEY Administration Levetiracetam 750 mg 06/16/19 10:00 06/17/19 09:45 Keppra PO 750 mg BID VICKEY Administration Methylprednisolone Sodium Succinate 20 mg 06/14/19 18:00 06/17/19 09:44 Solu-Medrol IV 20 mg Q8H VICKEY Administration Minoxidil 2.5 mg 06/06/19 22:00 06/17/19 09:47 Loniten PO 2.5 mg BID [facility] Administration Multi-Ingred Cream/Lotion/Oil/Oint 1 applic 06/16/19 18:00 Artificial Tears Ophth Oint OU Q4HR PRN Dry Eye(s) Simple Syrup 15 ml 05/14/19 15:01 Simple Syrup FEEDTUBE PRN PRN Hypoglycemia Simple Syrup 30 ml 05/14/19 15:01 Simple Syrup FEEDTUBE PRN PRN Hypoglycemia Sodium Bicarbonate 325 mg 05/14/19 15:01 Sodium Bicarbonate FEEDTUBE PRN PRN For Clogged Feeding Tube
--- NOTE | 2019-06-17 12:36 | Progress Note ---
Assessment and Plan Labs reviewed Imp: 1. Acute respiratory failure, hypoxia 2. A/C respiratory failure, hypercapnea 3. LNADON/OHS/Morbid obesity 4. CARLA 5. Pulm HTN 6. Sepsis -> ? Pneumonia, ? Meningitis 7. Seizures Rec: 1. Avoid sedating meds 2. HOB elevated if possible 3. Control BP with PO meds; changed HCTZ to Lasix PO 4. Repeat CXR PRN 5. Chest PT/NT suctioning -> asked RT to be sure they are NT suctioning the patient today; if he gets reintubated it will be due to poor airway clearance and he would need a trach at that point 6. Cont. TFs; mentation and breathing need to improve before taking PO 7. DVT PPx 8. Change to Prednisone soon 9. PT/OT 10. Try to wean to nasal cannula 11. Complex decision-making 12. BIPAP QHS No family present; prognosis remains guarded Subjective Date of service: 06/16/19 Principal diagnosis: HF; acute hypoxemic resp failure, SIRS, CARLA Interval history: Awake, alert. Congestion worse again with poor cough. Unable to give history. Remains on VM. Active Medications Acetaminophen (Tylenol) 650 mg PO Q6H PRN PRN Reason: FOR TEMP >/=100.4 Last Admin: 06/17/19 09:44 Dose: 650 mg Documented by: Lipase/Protease/Amylase (German Fletcher 10,500 Unit) 1 each FEEDTUBE PRN PRN PRN Reason: For Clogged Feeding Tube Clonidine HCl (Catapres-Tts Patch) 0.3 mg TD Lao [facility] Last Admin: 06/13/19 20:28 Dose: 0.3 mg Documented by: Dextrose (D50w (25gm) Vial) 50 gm IV Q30MIN PRN; Protocol PRN Reason: Hypoglycemia Enoxaparin Sodium (Enoxaparin) 40 mg SUB-Q QDAY@1000 [facility] Last Admin: 06/17/19 09:43 Dose: 40 mg Documented by: Famotidine (Pepcid) 20 mg PO BID [facility] Last Admin: 06/17/19 09:43 Dose: 20 mg Documented by: Furosemide (Lasix) 20 mg PO DAILY@0600 [facility] Last Admin: 06/17/19 06:45 Dose: 20 mg Documented by: Hydrophilic Ointment (Vaseline Lip Therapy) 1 applic TP Q2HR PRN PRN Reason: Dry Lips Propofol (Diprivan 10 Mg/Ml) 1,000 mg in 100 mls @ 7.716 mls/hr IV TITR [facility]; Protocol Last Admin: 06/17/19 12:11 Dose: 20 mcg/kg/min, 30.864 mls/hr Documented by: Insulin Glargine (Lantus) 15 units SUB-Q QHS [facility] Last Admin: 06/16/19 21:43 Dose: 15 units Documented by: Insulin Human Lispro (Humalog) 0 unit SUB-Q Q6HR [facility]; Protocol Last Admin: 06/17/19 12:25 Dose: 4 unit Documented by: Labetalol HCl (Labetalol) 10 mg IV Q4H PRN PRN Reason: BP >170/105; hold for HR <60 Last Admin: 06/16/19 19:47 Dose: 10 mg Documented by: Labetalol HCl (Labetalol) 200 mg PO Q8HR [facility] Last Admin: 06/17/19 06:44 Dose: 200 mg Documented by: Levetiracetam (Keppra) 750 mg PO BID [facility] Last Admin: 06/17/19 09:45 Dose: 750 mg Documented by: Methylprednisolone Sodium Succinate (Solu-Medrol) 20 mg IV Q8H [facility] Last Admin: 06/17/19 09:44 Dose: 20 mg Documented by: Minoxidil (Loniten) 2.5 mg PO BID [facility] Last Admin: 06/17/19 09:47 Dose: 2.5 mg Documented by: Multi-Ingred Cream/Lotion/Oil/Oint (Artificial Tears Ophth Oint) 1 applic OU Q4HR PRN PRN Reason: Dry Eye(s) Simple Syrup (Simple Syrup) 15 ml FEEDTUBE PRN PRN PRN Reason: Hypoglycemia Simple Syrup (Simple Syrup) 30 ml FEEDTUBE PRN PRN PRN Reason: Hypoglycemia Sodium Bicarbonate (Sodium Bicarbonate) 325 mg FEEDTUBE PRN PRN PRN Reason: For Clogged Feeding Tube Objective Vital Signs - 12hr 06/17/19 06/17/19 06/17/19 00:43 00:45 01:00 Temperature Pulse Rate 103 H 102 H 103 H Respiratory 11 L 18 Rate Blood Pressure 137/66 137/66 123/61 O2 Sat by Pulse 99 96 99 Oximetry 06/17/19 06/17/19 06/17/19 01:15 01:30 01:46 Temperature Pulse Rate 101 H 102 H 104 H Respiratory 23 19 13 Rate Blood Pressure 114/61 144/80 148/88 O2 Sat by Pulse 99 96 99 Oximetry 06/17/19 06/17/19 06/17/19 02:00 02:15 02:30 Temperature Pulse Rate 103 H 105 H 104 H Respiratory 13 14 29 H Rate Blood Pressure 138/73 125/58 131/47 O2 Sat by Pulse 100 100 96 Oximetry 06/17/19 06/17/19 06/17/19 02:45 03:00 03:15 Temperature Pulse Rate 102 H 98 H 93 H Respiratory 17 24 24 Rate Blood Pressure 140/63 112/45 123/52 O2 Sat by Pulse 100 96 98 Oximetry 06/17/19 06/17/19 06/17/19 03:30 03:45 04:00 Temperature 99.9 F H Pulse Rate 95 H 96 H 96 H Respiratory 24 24 24 Rate Blood Pressure 150/81 126/56 125/52 O2 Sat by Pulse 95 94 98 Oximetry 06/17/19 06/17/19 06/17/19 04:15 04:21 04:30 Temperature Pulse Rate 94 H 101 H 102 H Respiratory 23 24 Rate Blood Pressure 135/63 135/63 153/77 O2 Sat by Pulse 99 99 99 Oximetry 06/17/19 06/17/19 06/17/19 04:45 05:00 05:15 Temperature Pulse Rate 104 H 106 H 104 H Respiratory 18 16 21 Rate Blood Pressure 153/75 137/61 127/60 O2 Sat by Pulse 96 97 97 Oximetry 06/17/19 06/17/19 06/17/19 05:30 05:45 06:00 Temperature Pulse Rate 105 H 105 H 102 H Respiratory 24 21 24 Rate Blood Pressure 134/55 127/59 126/52 O2 Sat by Pulse 96 94 97 Oximetry 06/17/19 06/17/19 06/17/19 06:15 06:30 06:44 Temperature Pulse Rate 101 H 100 H 107 H Respiratory 25 H 24 Rate Blood Pressure 124/51 122/54 122/54 O2 Sat by Pulse 96 97 Oximetry 06/17/19 06/17/19 06/17/19 06:45 07:00 07:15 Temperature Pulse Rate 108 H 109 H 105 H Respiratory 18 15 15 Rate Blood Pressure 136/80 139/70 125/69 O2 Sat by Pulse 95 97 96 Oximetry 06/17/19 06/17/19 06/17/19 07:30 07:45 08:00 Temperature 102.0 F H Pulse Rate 105 H 105 H 107 H Respiratory 13 20 22 Rate Blood Pressure 131/45 114/48 110/39 O2 Sat by Pulse 96 97 97 Oximetry 06/17/19 06/17/19 06/17/19 08:15 08:30 08:45 Temperature Pulse Rate 102 H 98 H 102 H Respiratory 24 24 24 Rate Blood Pressure 110/39 115/42 124/54 O2 Sat by Pulse 97 98 99 Oximetry 06/17/19 06/17/19 06/17/19 09:00 09:15 09:29 Temperature Pulse Rate 106 H 106 H 109 H Respiratory 11 L 15 Rate Blood Pressure 134/60 131/46 130/51 O2 Sat by Pulse 96 96 100 Oximetry 06/17/19 06/17/19 06/17/19 09:30 09:45 10:00 Temperature Pulse Rate 107 H 110 H 108 H Respiratory 17 12 18 Rate Blood Pressure 130/51 121/59 129/52 O2 Sat by Pulse 97 97 98 Oximetry 06/17/19 06/17/19 12:00 12:16 Temperature 102.0 F H Pulse Rate 104 H Respiratory Rate Blood Pressure 127/47 O2 Sat by Pulse 100 Oximetry Constitutional: no acute distress, other (morbidly obese male, extubated) Eyes: non-icteric ENT: oropharynx moist Neck: other (extremely large in circumference) Effort: normal Ascultation: Bilateral: diminished breath sounds (secondary to body habitus) Cardiovascular: regular rate and rhythm (no mrg) Gastrointestinal: normoactive bowel sounds, soft, non-tender, other (obese) Integumentary: other (L hand is wrapped) Extremities: no cyanosis, pink and warm, other (1+ generalized edema) Neurologic: normal mental status, non-focal exam Psychiatric: mood appropriate, affect normal CBC and BMP: 06/17/19 09:50 06/17/19 05:30 ABG, PT/INR, D-dimer: ABG POC ABG pH 7.462 (7.35-7.45) H 06/05/19 03:52 ABG pH 7.564 pH Units (7.350-7.450) H 06/17/19 Unknown POC ABG pCO2 39.8 (35-45) 06/05/19 03:52 ABG pCO2 38.0 mm Hg 06/17/19 Unknown POC ABG pO2 86 (80-105) 06/05/19 03:52 ABG pO2 238.6 mm Hg (80.0-90.0) H 06/17/19 Unknown POC ABG HCO3 28.4 (22-26 mml/L) 06/05/19 03:52 POC ABG Total CO2 30 (23-27mmol/L) 06/05/19 03:52 POC ABG O2 Sat 97 06/05/19 03:52 ABG O2 Saturation 99.4 % (95.0-99.0) H 06/17/19 Unknown PT/INR, D-dimer PT 15.4 Sec. (12.2-14.9) H 05/01/19 Unknown INR 1.23 (0.87-1.13) H 05/01/19 Unknown Abnormal lab findings: Abnormal Labs 05/01/19 05/01/19 05/01/19 17:50 19:26 22:36 WBC RBC Hgb Hct MCV MCH MCHC RDW Plt Count Lymph % (Auto) [place] % (Auto) Eos % (Auto) Lymph # [place] # Eos # Seg Neutrophils % Seg Neuts % (Manual) Lymphocytes % (Manual) Monocytes % (Manual) Eosinophils % (Manual) Nucleated RBC % Seg Neutrophils # Seg Neutrophils # Man Lymphocytes # (Manual) Monocytes # (Manual) Eosinophils # (Manual) PT INR APTT POC ABG pH 7.272 L 7.331 L ABG pH POC ABG pCO2 52.8 H POC ABG pO2 ABG pO2 ABG HCO3 ABG O2 Saturation ABG Base Excess ABG Hemoglobin Oxyhemoglobin Sodium 136 L Potassium 6.5 H* Chloride 97.2 L Carbon Dioxide BUN 60 H Creatinine Glucose 113 H POC Glucose Uric Acid Calcium Phosphorus Magnesium 2.40 H AST 139 H ALT 154 H Total Creatine Kinase CK-MB (CK-2) Troponin T NT-Pro-B Natriuret Pep Total Protein Albumin 3.8 L Triglycerides HDL Cholesterol Urine WBC (Auto) Urine Creatinine Urine Total Protein Vancomycin Trough 05/01/19 05/01/19 05/01/19 Unknown Unknown Unknown WBC 16.1 H RBC Hgb Hct MCV MCH MCHC RDW 17.2 H Plt Count Lymph % (Auto) [place] % (Auto) 9.6 H Eos % (Auto) Lymph # [place] # 1.5 H Eos # Seg Neutrophils % 73.0 H Seg Neuts % (Manual) Lymphocytes % (Manual) Monocytes % (Manual) Eosinophils % (Manual) Nucleated RBC % Seg Neutrophils # 11.7 H Seg Neutrophils # Man Lymphocytes # (Manual) Monocytes # (Manual) Eosinophils # (Manual) PT 15.4 H INR 1.23 H APTT 22.7 L POC ABG pH ABG pH POC ABG pCO2 POC ABG pO2 ABG pO2 ABG HCO3 ABG O2 Saturation ABG Base Excess ABG Hemoglobin Oxyhemoglobin Sodium Potassium Chloride Carbon Dioxide BUN Creatinine Glucose POC Glucose Uric Acid Calcium Phosphorus Magnesium AST ALT Total Creatine Kinase CK-MB (CK-2) Troponin T NT-Pro-B Natriuret Pep 6831 H Total Protein Albumin Triglycerides HDL Cholesterol Urine WBC (Auto) Urine Creatinine Urine Total Protein Vancomycin Trough 05/01/19 05/02/19 05/02/19 Unknown 00:06 00:06 WBC RBC Hgb Hct MCV MCH MCHC RDW Plt Count Lymph % (Auto) [place] % (Auto) Eos % (Auto) Lymph # [place] # Eos # Seg Neutrophils % Seg Neuts % (Manual) Lymphocytes % (Manual) Monocytes % (Manual) Eosinophils % (Manual) Nucleated RBC % Seg Neutrophils # Seg Neutrophils # Man Lymphocytes # (Manual) Monocytes # (Manual) Eosinophils # (Manual) PT INR APTT POC ABG pH ABG pH POC ABG pCO2 POC ABG pO2 ABG pO2 ABG HCO3 ABG O2 Saturation ABG Base Excess ABG Hemoglobin Oxyhemoglobin Sodium Potassium Chloride Carbon Dioxide BUN Creatinine Glucose POC Glucose Uric Acid Calcium Phosphorus 4.90 H Magnesium AST ALT Total Creatine Kinase 226 H CK-MB (CK-2) 5.7 H Troponin T 0.044 H NT-Pro-B Natriuret Pep Total Protein Albumin Triglycerides 182 H HDL Cholesterol 18 L Urine WBC (Auto) Urine Creatinine Urine Total Protein Vancomycin Trough 05/02/19 05/02/19 05/02/19 02:08 04:40 04:41 WBC 17.6 H RBC Hgb Hct MCV MCH 27 L MCHC RDW 17.4 H Plt Count Lymph % (Auto) 10.2 L [place] % (Auto) 11.0 H Eos % (Auto) Lymph # [place] # 1.9 H Eos # Seg Neutrophils % 78.0 H Seg Neuts % (Manual) Lymphocytes % (Manual) Monocytes % (Manual) Eosinophils % (Manual) Nucleated RBC % Seg Neutrophils # 13.8 H Seg Neutrophils # Man Lymphocytes # (Manual) Monocytes # (Manual) Eosinophils # (Manual) PT INR APTT POC ABG pH ABG pH POC ABG pCO2 46.8 H POC ABG pO2 63 L ABG pO2 ABG HCO3 ABG O2 Saturation ABG Base Excess ABG Hemoglobin Oxyhemoglobin Sodium Potassium Chloride 96.3 L Carbon Dioxide BUN 63 H Creatinine 1.7 H Glucose POC Glucose Uric Acid Calcium Phosphorus Magnesium AST ALT Total Creatine Kinase CK-MB (CK-2) Troponin T NT-Pro-B Natriuret Pep Total Protein Albumin Triglycerides HDL Cholesterol Urine WBC (Auto) Urine Creatinine Urine Total Protein Vancomycin Trough 05/02/19 05/02/19 05/02/19 04:41 04:41 16:05 WBC RBC Hgb Hct MCV MCH MCHC RDW Plt Count Lymph % (Auto) [place] % (Auto) Eos % (Auto) Lymph # [place] # Eos # Seg Neutrophils % Seg Neuts % (Manual) Lymphocytes % (Manual) Monocytes % (Manual) Eosinophils % (Manual) Nucleated RBC % Seg Neutrophils # Seg Neutrophils # Man Lymphocytes # (Manual) Monocytes # (Manual) Eosinophils # (Manual) PT INR APTT POC ABG pH ABG pH POC ABG pCO2 POC ABG pO2 ABG pO2 66.6 L ABG HCO3 31.9 H ABG O2 Saturation 92.5 L ABG Base Excess 5.8 H ABG Hemoglobin 13.3 L Oxyhemoglobin 90.6 L Sodium Potassium Chloride 97.2 L Carbon Dioxide BUN 61 H Creatinine 1.8 H Glucose POC Glucose Uric Acid Calcium Phosphorus Magnesium AST ALT Total Creatine Kinase CK-MB (CK-2) 5.2 H Troponin T 0.067 H D NT-Pro-B Natriuret Pep Total Protein Albumin Triglycerides HDL Cholesterol Urine WBC (Auto) Urine Creatinine Urine Total Protein Vancomycin Trough 05/02/19 05/03/19 05/03/19 20:39 04:35 05:05 WBC 11.8 H RBC Hgb Hct MCV MCH 27 L MCHC 31 L RDW 17.2 H Plt Count Lymph % (Auto) [place] % (Auto) Eos % (Auto) Lymph # [place] # Eos # Seg Neutrophils % Seg Neuts % (Manual) Lymphocytes % (Manual) Monocytes % (Manual) Eosinophils % (Manual) Nucleated RBC % Seg Neutrophils # Seg Neutrophils # Man Lymphocytes # (Manual) Monocytes # (Manual) Eosinophils # (Manual) PT INR APTT POC ABG pH ABG pH POC ABG pCO2 53.6 H 54.0 H POC ABG pO2 55 L 63 L ABG pO2 ABG HCO3 ABG O2 Saturation ABG Base Excess ABG Hemoglobin Oxyhemoglobin Sodium Potassium Chloride Carbon Dioxide BUN Creatinine Glucose POC Glucose Uric Acid Calcium Phosphorus Magnesium AST ALT Total Creatine Kinase CK-MB (CK-2) Troponin T NT-Pro-B Natriuret Pep Total Protein Albumin Triglycerides HDL Cholesterol Urine WBC (Auto) Urine Creatinine Urine Total Protein Vancomycin Trough 05/03/19 05/03/19 05/03/19 05:05 10:55 16:48 WBC RBC Hgb Hct MCV MCH MCHC RDW Plt Count Lymph % (Auto) [place] % (Auto) Eos % (Auto) Lymph # [place] # Eos # Seg Neutrophils % Seg Neuts % (Manual) Lymphocytes % (Manual) Monocytes % (Manual) Eosinophils % (Manual) Nucleated RBC % Seg Neutrophils # Seg Neutrophils # Man Lymphocytes # (Manual) Monocytes # (Manual) Eosinophils # (Manual) PT INR APTT POC ABG pH 7.604 H ABG pH POC ABG pCO2 POC ABG pO2 58 L ABG pO2 ABG HCO3 ABG O2 Saturation ABG Base Excess ABG Hemoglobin Oxyhemoglobin Sodium Potassium Chloride Carbon Dioxide BUN 52 H Creatinine 1.9 H Glucose 103 H POC Glucose Uric Acid Calcium Phosphorus Magnesium AST ALT Total Creatine Kinase CK-MB (CK-2) Troponin T NT-Pro-B Natriuret Pep Total Protein Albumin Triglycerides HDL Cholesterol Urine WBC (Auto) 33.0 H Urine Creatinine Urine Total Protein Vancomycin Trough 05/04/19 05/04/19 05/04/19 04:49 06:50 06:50 WBC 16.0 H RBC Hgb Hct MCV MCH 27 L MCHC 31 L RDW 17.8 H Plt Count Lymph % (Auto) [place] % (Auto) Eos % (Auto) Lymph # [place] # Eos # Seg Neutrophils % Seg Neuts % (Manual) Lymphocytes % (Manual) Monocytes % (Manual) Eosinophils % (Manual) Nucleated RBC % Seg Neutrophils # Seg Neutrophils # Man Lymphocytes # (Manual) Monocytes # (Manual) Eosinophils # (Manual) PT INR APTT POC ABG pH 7.273 L ABG pH POC ABG pCO2 POC ABG pO2 ABG pO2 ABG HCO3 ABG O2 Saturation ABG Base Excess ABG Hemoglobin Oxyhemoglobin Sodium 148 H Potassium 5.5 H Chloride Carbon Dioxide BUN 53 H Creatinine 3.3 H D Glucose 106 H POC Glucose Uric Acid Calcium 8.3 L Phosphorus Magnesium AST ALT Total Creatine Kinase CK-MB (CK-2) Troponin T NT-Pro-B Natriuret Pep Total Protein Albumin Triglycerides HDL Cholesterol Urine WBC (Auto) Urine Creatinine Urine Total Protein Vancomycin Trough 05/05/19 05/05/19 05/05/19 00:05 04:30 05:00 WBC RBC Hgb Hct MCV MCH MCHC RDW Plt Count Lymph % (Auto) [place] % (Auto) Eos % (Auto) Lymph # [place] # Eos # Seg Neutrophils % Seg Neuts % (Manual) Lymphocytes % (Manual) Monocytes % (Manual) Eosinophils % (Manual) Nucleated RBC % Seg Neutrophils # Seg Neutrophils # Man Lymphocytes # (Manual) Monocytes # (Manual) Eosinophils # (Manual) PT INR APTT POC ABG pH 7.225 L ABG pH POC ABG pCO2 > 70 H POC ABG pO2 ABG pO2 ABG HCO3 ABG O2 Saturation ABG Base Excess ABG Hemoglobin Oxyhemoglobin Sodium 151 H Potassium 5.1 H Chloride Carbon Dioxide BUN 64 H Creatinine 3.5 H Glucose 117 H POC Glucose 141 H Uric Acid Calcium 7.5 L Phosphorus Magnesium AST 93 H ALT 65 H Total Creatine Kinase CK-MB (CK-2) Troponin T NT-Pro-B Natriuret Pep Total Protein Albumin 2.9 L Triglycerides HDL Cholesterol Urine WBC (Auto) Urine Creatinine Urine Total Protein Vancomycin Trough 05/05/19 05/05/19 05/05/19 05:00 12:02 17:46 WBC 12.0 H RBC Hgb 11.3 L Hct MCV MCH 27 L MCHC 30 L RDW 18.4 H Plt Count Lymph % (Auto) 7.9 L [place] % (Auto) 10.2 H Eos % (Auto) Lymph # 1.0 L [place] # 1.2 H Eos # Seg Neutrophils % 80.8 H Seg Neuts % (Manual) Lymphocytes % (Manual) Monocytes % (Manual) Eosinophils % (Manual) Nucleated RBC % Seg Neutrophils # 9.7 H Seg Neutrophils # Man Lymphocytes # (Manual) Monocytes # (Manual) Eosinophils # (Manual) PT INR APTT POC ABG pH ABG pH POC ABG pCO2 POC ABG pO2 ABG pO2 ABG HCO3 ABG O2 Saturation ABG Base Excess ABG Hemoglobin Oxyhemoglobin Sodium Potassium Chloride Carbon Dioxide BUN Creatinine Glucose POC Glucose 125 H 112 H Uric Acid Calcium Phosphorus Magnesium AST ALT Total Creatine Kinase CK-MB (CK-2) Troponin T NT-Pro-B Natriuret Pep Total Protein Albumin Triglycerides HDL Cholesterol Urine WBC (Auto) Urine Creatinine Urine Total Protein Vancomycin Trough 05/05/19 05/06/19 05/06/19 23:42 03:58 04:45 WBC 11.4 H RBC Hgb 10.7 L Hct 34.2 L MCV MCH 27 L MCHC 31 L RDW 16.9 H Plt Count Lymph % (Auto) [place] % (Auto) Eos % (Auto) Lymph # [place] # Eos # Seg Neutrophils % Seg Neuts % (Manual) Lymphocytes % (Manual) Monocytes % (Manual) Eosinophils % (Manual) Nucleated RBC % Seg Neutrophils # Seg Neutrophils # Man Lymphocytes # (Manual) Monocytes # (Manual) Eosinophils # (Manual) PT INR APTT POC ABG pH ABG pH POC ABG pCO2 62.4 H POC ABG pO2 111 H ABG pO2 ABG HCO3 ABG O2 Saturation ABG Base Excess ABG Hemoglobin Oxyhemoglobin Sodium Potassium Chloride Carbon Dioxide BUN Creatinine Glucose POC Glucose 128 H Uric Acid Calcium Phosphorus Magnesium AST ALT Total Creatine Kinase CK-MB (CK-2) Troponin T NT-Pro-B Natriuret Pep Total Protein Albumin Triglycerides HDL Cholesterol Urine WBC (Auto) Urine Creatinine Urine Total Protein Vancomycin Trough 05/06/19 05/06/19 05/06/19 04:45 05:33 12:30 WBC RBC Hgb Hct MCV MCH MCHC RDW Plt Count Lymph % (Auto) [place] % (Auto) Eos % (Auto) Lymph # [place] # Eos # Seg Neutrophils % Seg Neuts % (Manual) Lymphocytes % (Manual) Monocytes % (Manual) Eosinophils % (Manual) Nucleated RBC % Seg Neutrophils # Seg Neutrophils # Man Lymphocytes # (Manual) Monocytes # (Manual) Eosinophils # (Manual) PT INR APTT POC ABG pH ABG pH POC ABG pCO2 POC ABG pO2 ABG pO2 ABG HCO3 ABG O2 Saturation ABG Base Excess ABG Hemoglobin Oxyhemoglobin Sodium 149 H Potassium Chloride Carbon Dioxide 31 H BUN 67 H Creatinine 3.2 H Glucose 125 H POC Glucose 117 H 116 H Uric Acid Calcium 7.5 L Phosphorus Magnesium AST ALT Total Creatine Kinase CK-MB (CK-2) Troponin T NT-Pro-B Natriuret Pep Total Protein Albumin Triglycerides HDL Cholesterol Urine WBC (Auto) Urine Creatinine Urine Total Protein Vancomycin Trough 05/06/19 05/06/19 05/07/19 18:34 23:16 05:22 WBC RBC Hgb Hct MCV MCH MCHC RDW Plt Count Lymph % (Auto) [place] % (Auto) Eos % (Auto) Lymph # [place] # Eos # Seg Neutrophils % Seg Neuts % (Manual) Lymphocytes % (Manual) Monocytes % (Manual) Eosinophils % (Manual) Nucleated RBC % Seg Neutrophils # Seg Neutrophils # Man Lymphocytes # (Manual) Monocytes # (Manual) Eosinophils # (Manual) PT INR APTT POC ABG pH ABG pH POC ABG pCO2 POC ABG pO2 ABG pO2 ABG HCO3 ABG O2 Saturation ABG Base Excess ABG Hemoglobin Oxyhemoglobin Sodium Potassium Chloride Carbon Dioxide BUN Creatinine Glucose POC Glucose 128 H 143 H 166 H Uric Acid Calcium Phosphorus Magnesium AST ALT Total Creatine Kinase CK-MB (CK-2) Troponin T NT-Pro-B Natriuret Pep Total Protein Albumin Triglycerides HDL Cholesterol Urine WBC (Auto) Urine Creatinine Urine Total Protein Vancomycin Trough 05/07/19 05/07/19 05/07/19 06:33 07:03 09:35 WBC RBC Hgb Hct MCV MCH MCHC RDW Plt Count Lymph % (Auto) [place] % (Auto) Eos % (Auto) Lymph # [place] # Eos # Seg Neutrophils % Seg Neuts % (Manual) Lymphocytes % (Manual) Monocytes % (Manual) Eosinophils % (Manual) Nucleated RBC % Seg Neutrophils # Seg Neutrophils # Man Lymphocytes # (Manual) Monocytes # (Manual) Eosinophils # (Manual) PT INR APTT POC ABG pH 7.263 L 7.288 L ABG pH POC ABG pCO2 POC ABG pO2 51 L 56 L ABG pO2 ABG HCO3 ABG O2 Saturation ABG Base Excess ABG Hemoglobin Oxyhemoglobin Sodium Potassium Chloride Carbon Dioxide BUN 76 H Creatinine 3.2 H Glucose 147 H POC Glucose Uric Acid Calcium 7.9 L Phosphorus Magnesium AST ALT Total Creatine Kinase CK-MB (CK-2) Troponin T NT-Pro-B Natriuret Pep Total Protein Albumin Triglycerides HDL Cholesterol Urine WBC (Auto) Urine Creatinine Urine Total Protein Vancomycin Trough 05/07/19 05/07/19 05/07/19 09:35 12:17 13:45 WBC 13.4 H RBC Hgb 11.6 L Hct MCV MCH 27 L MCHC 31 L RDW 17.5 H Plt Count Lymph % (Auto) [place] % (Auto) Eos % (Auto) Lymph # [place] # Eos # Seg Neutrophils % Seg Neuts % (Manual) Lymphocytes % (Manual) Monocytes % (Manual) Eosinophils % (Manual) Nucleated RBC % Seg Neutrophils # Seg Neutrophils # Man Lymphocytes # (Manual) Monocytes # (Manual) Eosinophils # (Manual) PT INR APTT POC ABG pH ABG pH POC ABG pCO2 POC ABG pO2 ABG pO2 ABG HCO3 ABG O2 Saturation ABG Base Excess ABG Hemoglobin Oxyhemoglobin Sodium Potassium Chloride Carbon Dioxide BUN Creatinine Glucose POC Glucose 130 H Uric Acid 18.0 H Calcium Phosphorus Magnesium AST ALT Total Creatine Kinase CK-MB (CK-2) Troponin T NT-Pro-B Natriuret Pep Total Protein Albumin Triglycerides HDL Cholesterol Urine WBC (Auto) Urine Creatinine Urine Total Protein Vancomycin Trough 05/07/19 05/07/19 05/08/19 17:39 22:40 05:06 WBC RBC Hgb Hct MCV MCH MCHC RDW Plt Count Lymph % (Auto) [place] % (Auto) Eos % (Auto) Lymph # [place] # Eos # Seg Neutrophils % Seg Neuts % (Manual) Lymphocytes % (Manual) Monocytes % (Manual) Eosinophils % (Manual) Nucleated RBC % Seg Neutrophils # Seg Neutrophils # Man Lymphocytes # (Manual) Monocytes # (Manual) Eosinophils # (Manual) PT INR APTT POC ABG pH ABG pH POC ABG pCO2 POC ABG pO2 ABG pO2 ABG HCO3 ABG O2 Saturation ABG Base Excess ABG Hemoglobin Oxyhemoglobin Sodium Potassium Chloride Carbon Dioxide BUN Creatinine Glucose POC Glucose 116 H 148 H Uric Acid Calcium Phosphorus Magnesium AST ALT Total Creatine Kinase CK-MB (CK-2) Troponin T NT-Pro-B Natriuret Pep Total Protein Albumin Triglycerides HDL Cholesterol Urine WBC (Auto) Urine Creatinine 292.8 H Urine Total Protein 269 H Vancomycin Trough 05/08/19 05/08/19 05/08/19 05:32 11:28 13:48 WBC RBC Hgb Hct MCV MCH MCHC RDW Plt Count Lymph % (Auto) [place] % (Auto) Eos % (Auto) Lymph # [place] # Eos # Seg Neutrophils % Seg Neuts % (Manual) Lymphocytes % (Manual) Monocytes % (Manual) Eosinophils % (Manual) Nucleated RBC % Seg Neutrophils # Seg Neutrophils # Man Lymphocytes # (Manual) Monocytes # (Manual) Eosinophils # (Manual) PT INR APTT POC ABG pH ABG pH POC ABG pCO2 45.4 H POC ABG pO2 64 L ABG pO2 ABG HCO3 ABG O2 Saturation ABG Base Excess ABG Hemoglobin Oxyhemoglobin Sodium Potassium Chloride Carbon Dioxide BUN 73 H Creatinine 2.7 H Glucose 127 H POC Glucose 107 H Uric Acid Calcium 7.6 L Phosphorus Magnesium AST ALT Total Creatine Kinase CK-MB (CK-2) Troponin T NT-Pro-B Natriuret Pep Total Protein Albumin Triglycerides HDL Cholesterol Urine WBC (Auto) Urine Creatinine Urine Total Protein Vancomycin Trough 05/08/19 05/09/19 05/09/19 17:48 04:50 04:53 WBC RBC 3.07 L Hgb 8.5 L D Hct 29.3 L D MCV 96 H MCH MCHC 29 L RDW 18.1 H Plt Count Lymph % (Auto) [place] % (Auto) Eos % (Auto) Lymph # [place] # Eos # Seg Neutrophils % Seg Neuts % (Manual) Lymphocytes % (Manual) Monocytes % (Manual) Eosinophils % (Manual) Nucleated RBC % Seg Neutrophils # Seg Neutrophils # Man Lymphocytes # (Manual) Monocytes # (Manual) Eosinophils # (Manual) PT INR APTT POC ABG pH 7.316 L ABG pH POC ABG pCO2 66.0 H POC ABG pO2 69 L ABG pO2 ABG HCO3 ABG O2 Saturation ABG Base Excess ABG Hemoglobin Oxyhemoglobin Sodium Potassium Chloride Carbon Dioxide BUN Creatinine Glucose POC Glucose 155 H Uric Acid Calcium Phosphorus Magnesium AST ALT Total Creatine Kinase CK-MB (CK-2) Troponin T NT-Pro-B Natriuret Pep Total Protein Albumin Triglycerides HDL Cholesterol Urine WBC (Auto) Urine Creatinine Urine Total Protein Vancomycin Trough 05/09/19 05/09/19 05/09/19 05:46 07:24 12:10 WBC RBC Hgb Hct MCV MCH MCHC RDW Plt Count Lymph % (Auto) [place] % (Auto) Eos % (Auto) Lymph # [place] # Eos # Seg Neutrophils % Seg Neuts % (Manual) Lymphocytes % (Manual) Monocytes % (Manual) Eosinophils % (Manual) Nucleated RBC % Seg Neutrophils # Seg Neutrophils # Man Lymphocytes # (Manual) Monocytes # (Manual) Eosinophils # (Manual) PT INR APTT POC ABG pH ABG pH POC ABG pCO2 POC ABG pO2 ABG pO2 ABG HCO3 ABG O2 Saturation ABG Base Excess ABG Hemoglobin Oxyhemoglobin Sodium Potassium Chloride Carbon Dioxide BUN 73 H Creatinine 2.4 H Glucose 153 H POC Glucose 123 H 148 H Uric Acid Calcium 8.2 L Phosphorus Magnesium AST 45 H ALT Total Creatine Kinase CK-MB (CK-2) Troponin T NT-Pro-B Natriuret Pep Total Protein 6.0 L Albumin 1.9 L Triglycerides HDL Cholesterol Urine WBC (Auto) Urine Creatinine Urine Total Protein Vancomycin Trough 05/09/19 05/09/19 05/10/19 18:23 23:26 04:52 WBC RBC Hgb Hct MCV MCH MCHC RDW Plt Count Lymph % (Auto) [place] % (Auto) Eos % (Auto) Lymph # [place] # Eos # Seg Neutrophils % Seg Neuts % (Manual) Lymphocytes % (Manual) Monocytes % (Manual) Eosinophils % (Manual) Nucleated RBC % Seg Neutrophils # Seg Neutrophils # Man Lymphocytes # (Manual) Monocytes # (Manual) Eosinophils # (Manual) PT INR APTT POC ABG pH 7.305 L ABG pH POC ABG pCO2 62.6 H POC ABG pO2 ABG pO2 ABG HCO3 ABG O2 Saturation ABG Base Excess ABG Hemoglobin Oxyhemoglobin Sodium Potassium Chloride Carbon Dioxide BUN Creatinine Glucose POC Glucose 147 H 121 H Uric Acid Calcium Phosphorus Magnesium AST ALT Total Creatine Kinase CK-MB (CK-2) Troponin T NT-Pro-B Natriuret Pep Total Protein Albumin Triglycerides HDL Cholesterol Urine WBC (Auto) Urine Creatinine Urine Total Protein Vancomycin Trough 05/10/19 05/10/19 05/10/19 05:00 05:00 05:50 WBC RBC Hgb 10.3 L Hct 33.7 L MCV MCH 27 L MCHC 31 L RDW 17.0 H Plt Count Lymph % (Auto) [place] % (Auto) Eos % (Auto) Lymph # [place] # Eos # Seg Neutrophils % Seg Neuts % (Manual) Lymphocytes % (Manual) Monocytes % (Manual) Eosinophils % (Manual) Nucleated RBC % Seg Neutrophils # Seg Neutrophils # Man Lymphocytes # (Manual) Monocytes # (Manual) Eosinophils # (Manual) PT INR APTT POC ABG pH ABG pH POC ABG pCO2 POC ABG pO2 ABG pO2 ABG HCO3 ABG O2 Saturation ABG Base Excess ABG Hemoglobin Oxyhemoglobin Sodium 147 H Potassium Chloride Carbon Dioxide BUN 70 H Creatinine 2.6 H Glucose 155 H POC Glucose 158 H Uric Acid Calcium 8.2 L Phosphorus Magnesium AST ALT Total Creatine Kinase CK-MB (CK-2) Troponin T NT-Pro-B Natriuret Pep Total Protein 6.1 L Albumin 2.5 L Triglycerides HDL Cholesterol Urine WBC (Auto) Urine Creatinine Urine Total Protein Vancomycin Trough 05/10/19 05/11/19 05/11/19 13:14 07:26 11:40 WBC RBC Hgb Hct MCV MCH MCHC RDW Plt Count Lymph % (Auto) [place] % (Auto) Eos % (Auto) Lymph # [place] # Eos # Seg Neutrophils % Seg Neuts % (Manual) Lymphocytes % (Manual) Monocytes % (Manual) Eosinophils % (Manual) Nucleated RBC % Seg Neutrophils # Seg Neutrophils # Man Lymphocytes # (Manual) Monocytes # (Manual) Eosinophils # (Manual) PT INR APTT POC ABG pH ABG pH POC ABG pCO2 48.0 H POC ABG pO2 58 L ABG pO2 ABG HCO3 ABG O2 Saturation ABG Base Excess ABG Hemoglobin Oxyhemoglobin Sodium 147 H Potassium Chloride 107.2 H Carbon Dioxide BUN 67 H Creatinine 2.6 H Glucose 121 H POC Glucose 159 H Uric Acid Calcium Phosphorus Magnesium AST ALT Total Creatine Kinase CK-MB (CK-2) Troponin T NT-Pro-B Natriuret Pep Total Protein Albumin Triglycerides HDL Cholesterol Urine WBC (Auto) Urine Creatinine Urine Total Protein Vancomycin Trough 05/11/19 05/11/19 05/12/19 18:13 23:46 04:40 WBC RBC Hgb Hct MCV MCH MCHC RDW Plt Count Lymph % (Auto) [place] % (Auto) Eos % (Auto) Lymph # [place] # Eos # Seg Neutrophils % Seg Neuts % (Manual) Lymphocytes % (Manual) Monocytes % (Manual) Eosinophils % (Manual) Nucleated RBC % Seg Neutrophils # Seg Neutrophils # Man Lymphocytes # (Manual) Monocytes # (Manual) Eosinophils # (Manual) PT INR APTT POC ABG pH ABG pH 7.264 L POC ABG pCO2 POC ABG pO2 ABG pO2 66.8 L ABG HCO3 31.0 H ABG O2 Saturation 92.0 L ABG Base Excess ABG Hemoglobin 10.3 L Oxyhemoglobin 90.1 L Sodium Potassium Chloride Carbon Dioxide BUN Creatinine Glucose POC Glucose 120 H 121 H Uric Acid Calcium Phosphorus Magnesium AST ALT Total Creatine Kinase CK-MB (CK-2) Troponin T NT-Pro-B Natriuret Pep Total Protein Albumin Triglycerides HDL Cholesterol Urine WBC (Auto) Urine Creatinine Urine Total Protein Vancomycin Trough 05/12/19 05/12/19 05/12/19 04:45 04:45 11:14 WBC RBC Hgb 10.2 L Hct 32.4 L MCV MCH MCHC 31 L RDW 17.2 H Plt Count Lymph % (Auto) [place] % (Auto) Eos % (Auto) Lymph # [place] # Eos # Seg Neutrophils % Seg Neuts % (Manual) Lymphocytes % (Manual) Monocytes % (Manual) Eosinophils % (Manual) Nucleated RBC % Seg Neutrophils # Seg Neutrophils # Man Lymphocytes # (Manual) Monocytes # (Manual) Eosinophils # (Manual) PT INR APTT POC ABG pH 7.284 L ABG pH POC ABG pCO2 67.8 H POC ABG pO2 ABG pO2 ABG HCO3 ABG O2 Saturation ABG Base Excess ABG Hemoglobin Oxyhemoglobin Sodium Potassium Chloride Carbon Dioxide BUN 63 H Creatinine 2.4 H Glucose 110 H POC Glucose Uric Acid Calcium Phosphorus Magnesium AST ALT Total Creatine Kinase CK-MB (CK-2) Troponin T NT-Pro-B Natriuret Pep Total Protein Albumin Triglycerides HDL Cholesterol Urine WBC (Auto) Urine Creatinine Urine Total Protein Vancomycin Trough 05/12/19 05/12/19 05/13/19 11:44 23:11 04:30 WBC RBC Hgb Hct MCV MCH MCHC RDW Plt Count Lymph % (Auto) [place] % (Auto) Eos % (Auto) Lymph # [place] # Eos # Seg Neutrophils % Seg Neuts % (Manual) Lymphocytes % (Manual) Monocytes % (Manual) Eosinophils % (Manual) Nucleated RBC % Seg Neutrophils # Seg Neutrophils # Man Lymphocytes # (Manual) Monocytes # (Manual) Eosinophils # (Manual) PT INR APTT POC ABG pH ABG pH 7.288 L POC ABG pCO2 POC ABG pO2 ABG pO2 109.7 H ABG HCO3 30.9 H ABG O2 Saturation ABG Base Excess 3.2 H ABG Hemoglobin 9.6 L Oxyhemoglobin Sodium Potassium Chloride Carbon Dioxide BUN Creatinine Glucose POC Glucose 126 H 147 H Uric Acid Calcium Phosphorus Magnesium AST ALT Total Creatine Kinase CK-MB (CK-2) Troponin T NT-Pro-B Natriuret Pep Total Protein Albumin Triglycerides HDL Cholesterol Urine WBC (Auto) Urine Creatinine Urine Total Protein Vancomycin Trough 05/13/19 05/13/19 05/14/19 06:27 11:58 04:00 WBC RBC 3.16 L Hgb 9.3 L Hct 27.9 L MCV MCH MCHC RDW 17.1 H Plt Count Lymph % (Auto) [place] % (Auto) Eos % (Auto) Lymph # [place] # Eos # Seg Neutrophils % Seg Neuts % (Manual) Lymphocytes % (Manual) Monocytes % (Manual) Eosinophils % (Manual) Nucleated RBC % Seg Neutrophils # Seg Neutrophils # Man Lymphocytes # (Manual) Monocytes # (Manual) Eosinophils # (Manual) PT INR APTT POC ABG pH ABG pH POC ABG pCO2 POC ABG pO2 ABG pO2 ABG HCO3 ABG O2 Saturation ABG Base Excess ABG Hemoglobin Oxyhemoglobin Sodium Potassium Chloride Carbon Dioxide BUN Creatinine Glucose POC Glucose 113 H 130 H Uric Acid Calcium Phosphorus Magnesium AST ALT Total Creatine Kinase CK-MB (CK-2) Troponin T NT-Pro-B Natriuret Pep Total Protein Albumin Triglycerides HDL Cholesterol Urine WBC (Auto) Urine Creatinine Urine Total Protein Vancomycin Trough 05/14/19 05/14/19 05/14/19 04:00 04:34 05:32 WBC RBC Hgb Hct MCV MCH MCHC RDW Plt Count Lymph % (Auto) [place] % (Auto) Eos % (Auto) Lymph # [place] # Eos # Seg Neutrophils % Seg Neuts % (Manual) Lymphocytes % (Manual) Monocytes % (Manual) Eosinophils % (Manual) Nucleated RBC % Seg Neutrophils # Seg Neutrophils # Man Lymphocytes # (Manual) Monocytes # (Manual) Eosinophils # (Manual) PT INR APTT POC ABG pH 7.328 L ABG pH POC ABG pCO2 61.7 H POC ABG pO2 ABG pO2 ABG HCO3 ABG O2 Saturation ABG Base Excess ABG Hemoglobin Oxyhemoglobin Sodium 135 L D Potassium Chloride Carbon Dioxide BUN 57 H Creatinine 2.2 H Glucose 115 H POC Glucose 115 H Uric Acid Calcium 8.1 L Phosphorus Magnesium AST ALT Total Creatine Kinase CK-MB (CK-2) Troponin T NT-Pro-B Natriuret Pep Total Protein Albumin Triglycerides HDL Cholesterol Urine WBC (Auto) Urine Creatinine Urine Total Protein Vancomycin Trough 05/14/19 05/15/19 05/15/19 12:11 05:10 05:24 WBC RBC Hgb Hct MCV MCH MCHC RDW Plt Count Lymph % (Auto) [place] % (Auto) Eos % (Auto) Lymph # [place] # Eos # Seg Neutrophils % Seg Neuts % (Manual) Lymphocytes % (Manual) Monocytes % (Manual) Eosinophils % (Manual) Nucleated RBC % Seg Neutrophils # Seg Neutrophils # Man Lymphocytes # (Manual) Monocytes # (Manual) Eosinophils # (Manual) PT INR APTT POC ABG pH ABG pH 7.342 L POC ABG pCO2 POC ABG pO2 ABG pO2 79.1 L ABG HCO3 28.2 H ABG O2 Saturation ABG Base Excess ABG Hemoglobin 7.0 L Oxyhemoglobin 94.4 L Sodium Potassium Chloride Carbon Dioxide BUN Creatinine Glucose POC Glucose 110 H 116 H Uric Acid Calcium Phosphorus Magnesium AST ALT Total Creatine Kinase CK-MB (CK-2) Troponin T NT-Pro-B Natriuret Pep Total Protein Albumin Triglycerides HDL Cholesterol Urine WBC (Auto) Urine Creatinine Urine Total Protein Vancomycin Trough 05/15/19 05/15/19 05/16/19 09:00 18:12 04:50 WBC RBC Hgb Hct MCV MCH MCHC RDW Plt Count Lymph % (Auto) [place] % (Auto) Eos % (Auto) Lymph # [place] # Eos # Seg Neutrophils % Seg Neuts % (Manual) Lymphocytes % (Manual) Monocytes % (Manual) Eosinophils % (Manual) Nucleated RBC % Seg Neutrophils # Seg Neutrophils # Man Lymphocytes # (Manual) Monocytes # (Manual) Eosinophils # (Manual) PT INR APTT POC ABG pH ABG pH 7.250 L POC ABG pCO2 POC ABG pO2 ABG pO2 76.4 L ABG HCO3 ABG O2 Saturation 94.6 L ABG Base Excess -3.1 L ABG Hemoglobin 9.7 L Oxyhemoglobin 92.4 L Sodium Potassium Chloride Carbon Dioxide BUN Creatinine Glucose POC Glucose 110 H Uric Acid Calcium Phosphorus Magnesium AST ALT Total Creatine Kinase CK-MB (CK-2) Troponin T NT-Pro-B Natriuret Pep Total Protein Albumin Triglycerides HDL Cholesterol Urine WBC (Auto) Urine Creatinine Urine Total Protein Vancomycin Trough 20.5 H 05/16/19 05/16/19 05/17/19 05:50 05:50 04:20 WBC RBC 3.36 L 3.44 L Hgb 9.4 L 9.3 L Hct 29.1 L 29.7 L MCV MCH 27 L MCHC 31 L RDW 17.6 H 17.6 H Plt Count Lymph % (Auto) [place] % (Auto) Eos % (Auto) Lymph # [place] # Eos # Seg Neutrophils % Seg Neuts % (Manual) 77.0 H Lymphocytes % (Manual) 5.0 L Monocytes % (Manual) Eosinophils % (Manual) 10.0 H Nucleated RBC % Seg Neutrophils # Seg Neutrophils # Man Lymphocytes # (Manual) 0.5 L Monocytes # (Manual) Eosinophils # (Manual) 0.9 H PT INR APTT POC ABG pH ABG pH POC ABG pCO2 POC ABG pO2 ABG pO2 ABG HCO3 ABG O2 Saturation ABG Base Excess ABG Hemoglobin Oxyhemoglobin Sodium Potassium Chloride Carbon Dioxide BUN 83 H Creatinine 4.4 H D Glucose 118 H POC Glucose Uric Acid Calcium Phosphorus Magnesium AST ALT Total Creatine Kinase CK-MB (CK-2) Troponin T NT-Pro-B Natriuret Pep Total Protein Albumin Triglycerides HDL Cholesterol Urine WBC (Auto) Urine Creatinine Urine Total Protein Vancomycin Trough 05/17/19 05/17/19 05/18/19 04:30 Unknown 01:50 WBC RBC 3.49 L Hgb 9.4 L Hct 30.0 L MCV MCH 27 L MCHC 31 L RDW 17.8 H Plt Count Lymph % (Auto) 7.9 L [place] % (Auto) 15.4 H Eos % (Auto) 6.3 H Lymph # 0.7 L [place] # 1.4 H Eos # 0.6 H Seg Neutrophils % 70.2 H Seg Neuts % (Manual) Lymphocytes % (Manual) Monocytes % (Manual) Eosinophils % (Manual) Nucleated RBC % Seg Neutrophils # Seg Neutrophils # Man Lymphocytes # (Manual) Monocytes # (Manual) Eosinophils # (Manual) PT INR APTT POC ABG pH ABG pH 7.272 L POC ABG pCO2 POC ABG pO2 ABG pO2 75.7 L ABG HCO3 ABG O2 Saturation 93.8 L ABG Base Excess -3.0 L ABG Hemoglobin 7.8 L Oxyhemoglobin 91.6 L Sodium Potassium 5.2 H Chloride Carbon Dioxide BUN 96 H Creatinine 5.7 H Glucose 112 H POC Glucose Uric Acid Calcium Phosphorus Magnesium AST ALT Total Creatine Kinase CK-MB (CK-2) Troponin T NT-Pro-B Natriuret Pep Total Protein Albumin Triglycerides 173 H HDL Cholesterol Urine WBC (Auto) Urine Creatinine Urine Total Protein Vancomycin Trough 05/18/19 05/18/19 05/18/19 01:50 04:41 05:24 WBC RBC Hgb Hct MCV MCH MCHC RDW Plt Count Lymph % (Auto) [place] % (Auto) Eos % (Auto) Lymph # [place] # Eos # Seg Neutrophils % Seg Neuts % (Manual) Lymphocytes % (Manual) Monocytes % (Manual) Eosinophils % (Manual) Nucleated RBC % Seg Neutrophils # Seg Neutrophils # Man Lymphocytes # (Manual) Monocytes # (Manual) Eosinophils # (Manual) PT INR APTT POC ABG pH 7.260 L ABG pH POC ABG pCO2 54.9 H POC ABG pO2 ABG pO2 ABG HCO3 ABG O2 Saturation ABG Base Excess ABG Hemoglobin Oxyhemoglobin Sodium Potassium 5.6 H Chloride Carbon Dioxide BUN 104 H Creatinine 6.6 H Glucose 107 H POC Glucose 106 H Uric Acid Calcium Phosphorus Magnesium AST ALT Total Creatine Kinase CK-MB (CK-2) Troponin T NT-Pro-B Natriuret Pep Total Protein Albumin Triglycerides HDL Cholesterol Urine WBC (Auto) Urine Creatinine Urine Total Protein Vancomycin Trough 05/18/19 05/18/19 05/19/19 11:34 23:26 04:06 WBC RBC 3.22 L Hgb 8.8 L Hct 27.3 L MCV MCH 27 L MCHC RDW 17.5 H Plt Count Lymph % (Auto) [place] % (Auto) Eos % (Auto) Lymph # [place] # Eos # Seg Neutrophils % Seg Neuts % (Manual) 74.0 H Lymphocytes % (Manual) 4.0 L Monocytes % (Manual) 11.0 H Eosinophils % (Manual) 7.0 H Nucleated RBC % 1.0 H Seg Neutrophils # Seg Neutrophils # Man Lymphocytes # (Manual) 0.3 L Monocytes # (Manual) 0.9 H Eosinophils # (Manual) 0.6 H PT INR APTT POC ABG pH ABG pH POC ABG pCO2 POC ABG pO2 ABG pO2 ABG HCO3 ABG O2 Saturation ABG Base Excess ABG Hemoglobin Oxyhemoglobin Sodium Potassium Chloride Carbon Dioxide BUN Creatinine Glucose POC Glucose 152 H 112 H Uric Acid Calcium Phosphorus Magnesium AST ALT Total Creatine Kinase CK-MB (CK-2) Troponin T NT-Pro-B Natriuret Pep Total Protein Albumin Triglycerides HDL Cholesterol Urine WBC (Auto) Urine Creatinine Urine Total Protein Vancomycin Trough 05/19/19 05/19/19 05/20/19 04:06 06:00 04:00 WBC RBC 3.40 L Hgb 9.2 L Hct 28.6 L MCV MCH 27 L MCHC RDW 17.6 H Plt Count Lymph % (Auto) [place] % (Auto) Eos % (Auto) Lymph # [place] # Eos # Seg Neutrophils % Seg Neuts % (Manual) Lymphocytes % (Manual) 11.0 L Monocytes % (Manual) Eosinophils % (Manual) 14.0 H Nucleated RBC % Seg Neutrophils # Seg Neutrophils # Man Lymphocytes # (Manual) 1.1 L Monocytes # (Manual) Eosinophils # (Manual) 1.4 H PT INR APTT POC ABG pH ABG pH 7.315 L POC ABG pCO2 POC ABG pO2 ABG pO2 ABG HCO3 ABG O2 Saturation ABG Base Excess ABG Hemoglobin 6.7 L Oxyhemoglobin 94.1 L Sodium Potassium 5.2 H Chloride Carbon Dioxide 21 L BUN 110 H Creatinine 7.2 H Glucose POC Glucose Uric Acid Calcium 8.3 L Phosphorus Magnesium AST ALT Total Creatine Kinase CK-MB (CK-2) Troponin T NT-Pro-B Natriuret Pep Total Protein Albumin Triglycerides HDL Cholesterol Urine WBC (Auto) Urine Creatinine Urine Total Protein Vancomycin Trough 05/20/19 05/20/19 05/20/19 04:00 05:48 12:00 WBC RBC Hgb Hct MCV MCH MCHC RDW Plt Count Lymph % (Auto) [place] % (Auto) Eos % (Auto) Lymph # [place] # Eos # Seg Neutrophils % Seg Neuts % (Manual) Lymphocytes % (Manual) Monocytes % (Manual) Eosinophils % (Manual) Nucleated RBC % Seg Neutrophils # Seg Neutrophils # Man Lymphocytes # (Manual) Monocytes # (Manual) Eosinophils # (Manual) PT INR APTT POC ABG pH ABG pH 7.281 L POC ABG pCO2 POC ABG pO2 ABG pO2 78.7 L ABG HCO3 ABG O2 Saturation 94.5 L ABG Base Excess -3.0 L ABG Hemoglobin 9.9 L Oxyhemoglobin 92.5 L Sodium 136 L Potassium 5.7 H Chloride 96.3 L Carbon Dioxide BUN 125 H Creatinine 8.3 H Glucose 106 H POC Glucose Uric Acid Calcium Phosphorus Magnesium AST ALT Total Creatine Kinase CK-MB (CK-2) Troponin T NT-Pro-B Natriuret Pep Total Protein Albumin Triglycerides HDL Cholesterol Urine WBC (Auto) 26.0 H Urine Creatinine Urine Total Protein Vancomycin Trough 05/21/19 05/21/1919 04:33 05:20 Unknown WBC RBC 3.38 L Hgb 9.1 L Hct 28.5 L MCV MCH 27 L MCHC RDW 17.4 H Plt Count Lymph % (Auto) [place] % (Auto) Eos % (Auto) Lymph # [place] # Eos # Seg Neutrophils % Seg Neuts % (Manual) 71.0 H Lymphocytes % (Manual) 1.0 L Monocytes % (Manual) 11.0 H Eosinophils % (Manual) 6.0 H Nucleated RBC % Seg Neutrophils # Seg Neutrophils # Man Lymphocytes # (Manual) 0.1 L Monocytes # (Manual) 1.0 H Eosinophils # (Manual) 0.6 H PT INR APTT POC ABG pH 7.315 L ABG pH POC ABG pCO2 57.8 H POC ABG pO2 68 L ABG pO2 ABG HCO3 ABG O2 Saturation ABG Base Excess ABG Hemoglobin Oxyhemoglobin Sodium Potassium Chloride 96.3 L Carbon Dioxide BUN 102 H Creatinine 7.0 H Glucose 103 H POC Glucose Uric Acid Calcium Phosphorus Magnesium AST ALT Total Creatine Kinase CK-MB (CK-2) Troponin T NT-Pro-B Natriuret Pep Total Protein Albumin Triglycerides HDL Cholesterol Urine WBC (Auto) Urine Creatinine Urine Total Protein Vancomycin Trough 05/22/19 05/22/19 05/22/19 03:54 06:25 06:25 WBC RBC 3.22 L Hgb 8.6 L Hct 27.0 L MCV MCH 27 L MCHC RDW 17.5 H Plt Count Lymph % (Auto) [place] % (Auto) 16.2 H Eos % (Auto) 10.8 H Lymph # [place] # 1.3 H Eos # 0.9 H Seg Neutrophils % Seg Neuts % (Manual) Lymphocytes % (Manual) 10.0 L Monocytes % (Manual) 13.0 H Eosinophils % (Manual) 8.0 H Nucleated RBC % Seg Neutrophils # Seg Neutrophils # Man Lymphocytes # (Manual) 0.9 L Monocytes # (Manual) 1.1 H Eosinophils # (Manual) 0.7 H PT INR APTT POC ABG pH 7.313 L ABG pH POC ABG pCO2 55.0 H POC ABG pO2 ABG pO2 ABG HCO3 ABG O2 Saturation ABG Base Excess ABG Hemoglobin Oxyhemoglobin Sodium 135 L Potassium Chloride 94.3 L Carbon Dioxide BUN 117 H Creatinine 7.8 H Glucose POC Glucose Uric Acid Calcium 8.2 L Phosphorus Magnesium AST ALT Total Creatine Kinase CK-MB (CK-2) Troponin T NT-Pro-B Natriuret Pep Total Protein Albumin Triglycerides HDL Cholesterol Urine WBC (Auto) Urine Creatinine Urine Total Protein Vancomycin Trough 05/23/19 05/24/19 05/24/19 05:21 05:00 05:00 WBC RBC 3.18 L Hgb 8.5 L Hct 26.7 L MCV MCH 27 L MCHC RDW 17.9 H Plt Count Lymph % (Auto) [place] % (Auto) Eos % (Auto) Lymph # [place] # Eos # Seg Neutrophils % Seg Neuts % (Manual) Lymphocytes % (Manual) Monocytes % (Manual) Eosinophils % (Manual) Nucleated RBC % Seg Neutrophils # Seg Neutrophils # Man Lymphocytes # (Manual) Monocytes # (Manual) Eosinophils # (Manual) PT INR APTT POC ABG pH ABG pH POC ABG pCO2 49.7 H POC ABG pO2 73 L ABG pO2 ABG HCO3 ABG O2 Saturation ABG Base Excess ABG Hemoglobin Oxyhemoglobin Sodium Potassium Chloride 95.7 L Carbon Dioxide BUN 97 H Creatinine 6.5 H Glucose POC Glucose Uric Acid Calcium 8.0 L Phosphorus Magnesium AST ALT Total Creatine Kinase CK-MB (CK-2) Troponin T NT-Pro-B Natriuret Pep Total Protein Albumin Triglycerides HDL Cholesterol Urine WBC (Auto) Urine Creatinine Urine Total Protein Vancomycin Trough 05/24/19 05/25/19 05/25/19 06:17 04:22 15:45 WBC RBC 2.98 L Hgb 8.1 L Hct 24.9 L MCV MCH 27 L MCHC RDW 17.8 H Plt Count Lymph % (Auto) [place] % (Auto) Eos % (Auto) Lymph # [place] # Eos # Seg Neutrophils % Seg Neuts % (Manual) Lymphocytes % (Manual) Monocytes % (Manual) Eosinophils % (Manual) Nucleated RBC % Seg Neutrophils # Seg Neutrophils # Man Lymphocytes # (Manual) Monocytes # (Manual) Eosinophils # (Manual) PT INR APTT POC ABG pH 7.330 L 7.313 L ABG pH POC ABG pCO2 52.5 H 51.1 H POC ABG pO2 77 L ABG pO2 ABG HCO3 ABG O2 Saturation ABG Base Excess ABG Hemoglobin Oxyhemoglobin Sodium Potassium Chloride Carbon Dioxide BUN Creatinine Glucose POC Glucose Uric Acid Calcium Phosphorus Magnesium AST ALT Total Creatine Kinase CK-MB (CK-2) Troponin T NT-Pro-B Natriuret Pep Total Protein Albumin Triglycerides HDL Cholesterol Urine WBC (Auto) Urine Creatinine Urine Total Protein Vancomycin Trough 05/25/19 05/26/19 05/26/19 15:45 04:13 05:00 WBC RBC 3.10 L Hgb 8.4 L Hct 26.0 L MCV MCH 27 L MCHC RDW 17.4 H Plt Count Lymph % (Auto) [place] % (Auto) Eos % (Auto) Lymph # [place] # Eos # Seg Neutrophils % Seg Neuts % (Manual) Lymphocytes % (Manual) Monocytes % (Manual) Eosinophils % (Manual) Nucleated RBC % Seg Neutrophils # Seg Neutrophils # Man Lymphocytes # (Manual) Monocytes # (Manual) Eosinophils # (Manual) PT INR APTT POC ABG pH 7.295 L ABG pH POC ABG pCO2 56.5 H POC ABG pO2 63 L ABG pO2 ABG HCO3 ABG O2 Saturation ABG Base Excess ABG Hemoglobin Oxyhemoglobin Sodium 136 L Potassium Chloride 96.8 L Carbon Dioxide BUN 83 H Creatinine 5.9 H Glucose POC Glucose Uric Acid Calcium 7.6 L Phosphorus Magnesium AST ALT Total Creatine Kinase CK-MB (CK-2) Troponin T NT-Pro-B Natriuret Pep Total Protein Albumin Triglycerides HDL Cholesterol Urine WBC (Auto) Urine Creatinine Urine Total Protein Vancomycin Trough 05/26/19 05/27/19 05/28/19 05:00 04:48 04:47 WBC RBC Hgb Hct MCV MCH MCHC RDW Plt Count Lymph % (Auto) [place] % (Auto) Eos % (Auto) Lymph # [place] # Eos # Seg Neutrophils % Seg Neuts % (Manual) Lymphocytes % (Manual) Monocytes % (Manual) Eosinophils % (Manual) Nucleated RBC % Seg Neutrophils # Seg Neutrophils # Man Lymphocytes # (Manual) Monocytes # (Manual) Eosinophils # (Manual) PT INR APTT POC ABG pH 7.323 L ABG pH 7.284 L POC ABG pCO2 56.2 H POC ABG pO2 ABG pO2 71.6 L ABG HCO3 ABG O2 Saturation 92.0 L ABG Base Excess ABG Hemoglobin 7.7 L Oxyhemoglobin 89.9 L Sodium 136 L Potassium Chloride 95.3 L Carbon Dioxide BUN 96 H Creatinine 6.5 H Glucose 108 H POC Glucose Uric Acid Calcium 7.6 L Phosphorus Magnesium AST ALT Total Creatine Kinase CK-MB (CK-2) Troponin T NT-Pro-B Natriuret Pep Total Protein Albumin Triglycerides HDL Cholesterol Urine WBC (Auto) Urine Creatinine Urine Total Protein Vancomycin Trough 05/28/19 05/29/19 05/29/19 12:30 12:47 23:44 WBC RBC Hgb Hct MCV MCH MCHC RDW Plt Count Lymph % (Auto) [place] % (Auto) Eos % (Auto) Lymph # [place] # Eos # Seg Neutrophils % Seg Neuts % (Manual) Lymphocytes % (Manual) Monocytes % (Manual) Eosinophils % (Manual) Nucleated RBC % Seg Neutrophils # Seg Neutrophils # Man Lymphocytes # (Manual) Monocytes # (Manual) Eosinophils # (Manual) PT INR APTT POC ABG pH ABG pH POC ABG pCO2 POC ABG pO2 ABG pO2 ABG HCO3 ABG O2 Saturation ABG Base Excess ABG Hemoglobin Oxyhemoglobin Sodium 135 L Potassium Chloride 95.3 L Carbon Dioxide BUN 82 H Creatinine 6.0 H Glucose POC Glucose 136 H 159 H Uric Acid Calcium 7.5 L Phosphorus Magnesium AST ALT Total Creatine Kinase CK-MB (CK-2) Troponin T NT-Pro-B Natriuret Pep Total Protein Albumin Triglycerides HDL Cholesterol Urine WBC (Auto) Urine Creatinine Urine Total Protein Vancomycin Trough 05/30/19 05/30/19 05/30/19 04:30 05:38 12:00 WBC RBC 3.01 L Hgb 8.2 L Hct 25.3 L MCV MCH 27 L MCHC RDW 17.5 H Plt Count Lymph % (Auto) [place] % (Auto) Eos % (Auto) Lymph # [place] # Eos # Seg Neutrophils % Seg Neuts % (Manual) 80.0 H Lymphocytes % (Manual) 10.0 L Monocytes % (Manual) Eosinophils % (Manual) Nucleated RBC % Seg Neutrophils # Seg Neutrophils # Man 8.0 H Lymphocytes # (Manual) 1.0 L Monocytes # (Manual) Eosinophils # (Manual) PT INR APTT POC ABG pH ABG pH POC ABG pCO2 POC ABG pO2 73 L ABG pO2 ABG HCO3 ABG O2 Saturation ABG Base Excess ABG Hemoglobin Oxyhemoglobin Sodium Potassium Chloride Carbon Dioxide BUN Creatinine Glucose POC Glucose 166 H Uric Acid Calcium Phosphorus Magnesium AST ALT Total Creatine Kinase CK-MB (CK-2) Troponin T NT-Pro-B Natriuret Pep Total Protein Albumin Triglycerides HDL Cholesterol Urine WBC (Auto) Urine Creatinine Urine Total Protein Vancomycin Trough 01/10/1205/31/19 05/31/19 23:45 04:07 13:04 WBC 14.3 H RBC 2.88 L Hgb 7.7 L Hct 23.9 L MCV 83 L MCH 27 L MCHC RDW 17.8 H Plt Count Lymph % (Auto) [place] % (Auto) Eos % (Auto) Lymph # [place] # Eos # Seg Neutrophils % Seg Neuts % (Manual) 83.0 H Lymphocytes % (Manual) 11.0 L Monocytes % (Manual) Eosinophils % (Manual) Nucleated RBC % Seg Neutrophils # Seg Neutrophils # Man 11.9 H Lymphocytes # (Manual) Monocytes # (Manual) 0.9 H Eosinophils # (Manual) PT INR APTT POC ABG pH ABG pH POC ABG pCO2 47.4 H POC ABG pO2 ABG pO2 ABG HCO3 ABG O2 Saturation ABG Base Excess ABG Hemoglobin Oxyhemoglobin Sodium Potassium Chloride Carbon Dioxide BUN Creatinine Glucose POC Glucose 209 H Uric Acid Calcium Phosphorus Magnesium AST ALT Total Creatine Kinase CK-MB (CK-2) Troponin T NT-Pro-B Natriuret Pep Total Protein Albumin Triglycerides HDL Cholesterol Urine WBC (Auto) Urine Creatinine Urine Total Protein Vancomycin Trough 05/31/19 05/31/19 06/01/19 13:04 16:42 00:15 WBC RBC Hgb Hct MCV MCH MCHC RDW Plt Count Lymph % (Auto) [place] % (Auto) Eos % (Auto) Lymph # [place] # Eos # Seg Neutrophils % Seg Neuts % (Manual) Lymphocytes % (Manual) Monocytes % (Manual) Eosinophils % (Manual) Nucleated RBC % Seg Neutrophils # Seg Neutrophils # Man Lymphocytes # (Manual) Monocytes # (Manual) Eosinophils # (Manual) PT INR APTT POC ABG pH ABG pH POC ABG pCO2 POC ABG pO2 ABG pO2 ABG HCO3 ABG O2 Saturation ABG Base Excess ABG Hemoglobin Oxyhemoglobin Sodium 129 L Potassium Chloride 88.6 L Carbon Dioxide 19 L BUN 117 H Creatinine 6.7 H Glucose 205 H POC Glucose 228 H 223 H Uric Acid Calcium 7.4 L Phosphorus 7.40 H Magnesium AST 58 H ALT 149 H Total Creatine Kinase CK-MB (CK-2) Troponin T NT-Pro-B Natriuret Pep Total Protein 6.0 L Albumin 2.5 L Triglycerides HDL Cholesterol Urine WBC (Auto) Urine Creatinine Urine Total Protein Vancomycin Trough 06/01/19 06/01/19 06/01/19 04:33 05:27 12:31 WBC RBC Hgb Hct MCV MCH MCHC RDW Plt Count Lymph % (Auto) [place] % (Auto) Eos % (Auto) Lymph # [place] # Eos # Seg Neutrophils % Seg Neuts % (Manual) Lymphocytes % (Manual) Monocytes % (Manual) Eosinophils % (Manual) Nucleated RBC % Seg Neutrophils # Seg Neutrophils # Man Lymphocytes # (Manual) Monocytes # (Manual) Eosinophils # (Manual) PT INR APTT POC ABG pH ABG pH POC ABG pCO2 POC ABG pO2 ABG pO2 56.9 L ABG HCO3 ABG O2 Saturation 85.9 L ABG Base Excess ABG Hemoglobin 8.1 L Oxyhemoglobin 83.6 L Sodium Potassium Chloride Carbon Dioxide BUN Creatinine Glucose POC Glucose 183 H 217 H Uric Acid Calcium Phosphorus Magnesium AST ALT Total Creatine Kinase CK-MB (CK-2) Troponin T NT-Pro-B Natriuret Pep Total Protein Albumin Triglycerides HDL Cholesterol Urine WBC (Auto) Urine Creatinine Urine Total Protein Vancomycin Trough 06/01/19 06/02/19 06/02/19 18:20 00:00 05:33 WBC RBC Hgb Hct MCV MCH MCHC RDW Plt Count Lymph % (Auto) [place] % (Auto) Eos % (Auto) Lymph # [place] # Eos # Seg Neutrophils % Seg Neuts % (Manual) Lymphocytes % (Manual) Monocytes % (Manual) Eosinophils % (Manual) Nucleated RBC % Seg Neutrophils # Seg Neutrophils # Man Lymphocytes # (Manual) Monocytes # (Manual) Eosinophils # (Manual) PT INR APTT POC ABG pH ABG pH POC ABG pCO2 POC ABG pO2 ABG pO2 ABG HCO3 ABG O2 Saturation ABG Base Excess ABG Hemoglobin Oxyhemoglobin Sodium Potassium Chloride Carbon Dioxide BUN Creatinine Glucose POC Glucose 265 H 279 H 259 H Uric Acid Calcium Phosphorus Magnesium AST ALT Total Creatine Kinase CK-MB (CK-2) Troponin T NT-Pro-B Natriuret Pep Total Protein Albumin Triglycerides HDL Cholesterol Urine WBC (Auto) Urine Creatinine Urine Total Protein Vancomycin Trough 06/02/19 06/02/19 06/02/19 11:06 11:06 11:42 WBC 13.1 H RBC 2.92 L Hgb 7.9 L Hct 24.4 L MCV MCH 27 L MCHC RDW 17.4 H Plt Count Lymph % (Auto) [place] % (Auto) Eos % (Auto) Lymph # [place] # Eos # Seg Neutrophils % Seg Neuts % (Manual) 78.0 H Lymphocytes % (Manual) 12.0 L Monocytes % (Manual) 10.0 H Eosinophils % (Manual) Nucleated RBC % Seg Neutrophils # Seg Neutrophils # Man 10.2 H Lymphocytes # (Manual) Monocytes # (Manual) 1.3 H Eosinophils # (Manual) PT INR APTT POC ABG pH ABG pH POC ABG pCO2 POC ABG pO2 ABG pO2 ABG HCO3 ABG O2 Saturation ABG Base Excess ABG Hemoglobin Oxyhemoglobin Sodium 135 L Potassium Chloride 94.7 L Carbon Dioxide 21 L BUN 107 H Creatinine 4.5 H Glucose 286 H POC Glucose 263 H Uric Acid Calcium 7.9 L Phosphorus 6.30 H Magnesium AST ALT 104 H Total Creatine Kinase CK-MB (CK-2) Troponin T NT-Pro-B Natriuret Pep Total Protein 6.0 L Albumin 2.7 L Triglycerides HDL Cholesterol Urine WBC (Auto) Urine Creatinine Urine Total Protein Vancomycin Trough 06/02/19 06/02/19 06/03/19 18:17 23:55 05:30 WBC RBC Hgb Hct MCV MCH MCHC RDW Plt Count Lymph % (Auto) [place] % (Auto) Eos % (Auto) Lymph # [place] # Eos # Seg Neutrophils % Seg Neuts % (Manual) Lymphocytes % (Manual) Monocytes % (Manual) Eosinophils % (Manual) Nucleated RBC % Seg Neutrophils # Seg Neutrophils # Man Lymphocytes # (Manual) Monocytes # (Manual) Eosinophils # (Manual) PT INR APTT POC ABG pH ABG pH POC ABG pCO2 POC ABG pO2 ABG pO2 ABG HCO3 ABG O2 Saturation ABG Base Excess ABG Hemoglobin Oxyhemoglobin Sodium Potassium Chloride 95.1 L Carbon Dioxide 21 L BUN 119 H Creatinine 4.1 H Glucose 330 H POC Glucose 276 H 244 H Uric Acid Calcium 8.1 L Phosphorus Magnesium AST ALT 98 H Total Creatine Kinase CK-MB (CK-2) Troponin T NT-Pro-B Natriuret Pep Total Protein 5.8 L Albumin 2.8 L Triglycerides HDL Cholesterol Urine WBC (Auto) Urine Creatinine Urine Total Protein Vancomycin Trough 06/03/19 06/03/19 06/03/19 05:30 06:04 09:42 WBC 12.8 H RBC 3.01 L Hgb 8.2 L Hct 25.4 L MCV MCH 27 L MCHC RDW 17.5 H Plt Count Lymph % (Auto) [place] % (Auto) Eos % (Auto) Lymph # [place] # Eos # Seg Neutrophils % Seg Neuts % (Manual) 78.0 H Lymphocytes % (Manual) 10.0 L Monocytes % (Manual) 12.0 H Eosinophils % (Manual) Nucleated RBC % Seg Neutrophils # Seg Neutrophils # Man 10.0 H Lymphocytes # (Manual) Monocytes # (Manual) 1.5 H Eosinophils # (Manual) PT INR APTT POC ABG pH ABG pH POC ABG pCO2 POC ABG pO2 ABG pO2 ABG HCO3 ABG O2 Saturation ABG Base Excess ABG Hemoglobin Oxyhemoglobin Sodium Potassium Chloride Carbon Dioxide BUN 106 H Creatinine Glucose POC Glucose 254 H Uric Acid Calcium Phosphorus Magnesium AST ALT Total Creatine Kinase CK-MB (CK-2) Troponin T NT-Pro-B Natriuret Pep Total Protein Albumin Triglycerides HDL Cholesterol Urine WBC (Auto) Urine Creatinine Urine Total Protein Vancomycin Trough 06/03/19 06/03/19 06/03/19 12:52 17:25 23:37 WBC RBC Hgb Hct MCV MCH MCHC RDW Plt Count Lymph % (Auto) [place] % (Auto) Eos % (Auto) Lymph # [place] # Eos # Seg Neutrophils % Seg Neuts % (Manual) Lymphocytes % (Manual) Monocytes % (Manual) Eosinophils % (Manual) Nucleated RBC % Seg Neutrophils # Seg Neutrophils # Man Lymphocytes # (Manual) Monocytes # (Manual) Eosinophils # (Manual) PT INR APTT POC ABG pH ABG pH POC ABG pCO2 POC ABG pO2 ABG pO2 ABG HCO3 ABG O2 Saturation ABG Base Excess ABG Hemoglobin Oxyhemoglobin Sodium Potassium Chloride Carbon Dioxide BUN Creatinine Glucose POC Glucose 274 H 285 H 310 H Uric Acid Calcium Phosphorus Magnesium AST ALT Total Creatine Kinase CK-MB (CK-2) Troponin T NT-Pro-B Natriuret Pep Total Protein Albumin Triglycerides HDL Cholesterol Urine WBC (Auto) Urine Creatinine Urine Total Protein Vancomycin Trough 06/04/19 06/04/19 06/04/19 04:57 05:03 11:50 WBC RBC Hgb Hct MCV MCH MCHC RDW Plt Count Lymph % (Auto) [place] % (Auto) Eos % (Auto) Lymph # [place] # Eos # Seg Neutrophils % Seg Neuts % (Manual) Lymphocytes % (Manual) Monocytes % (Manual) Eosinophils % (Manual) Nucleated RBC % Seg Neutrophils # Seg Neutrophils # Man Lymphocytes # (Manual) Monocytes # (Manual) Eosinophils # (Manual) PT INR APTT POC ABG pH 7.488 H ABG pH POC ABG pCO2 POC ABG pO2 ABG pO2 ABG HCO3 ABG O2 Saturation ABG Base Excess ABG Hemoglobin Oxyhemoglobin Sodium Potassium Chloride Carbon Dioxide BUN Creatinine Glucose POC Glucose 275 H 279 H Uric Acid Calcium Phosphorus Magnesium AST ALT Total Creatine Kinase CK-MB (CK-2) Troponin T NT-Pro-B Natriuret Pep Total Protein Albumin Triglycerides HDL Cholesterol Urine WBC (Auto) Urine Creatinine Urine Total Protein Vancomycin Trough 06/04/19 06/04/19 06/04/19 18:32 22:03 23:55 WBC RBC Hgb Hct MCV MCH MCHC RDW Plt Count Lymph % (Auto) [place] % (Auto) Eos % (Auto) Lymph # [place] # Eos # Seg Neutrophils % Seg Neuts % (Manual) Lymphocytes % (Manual) Monocytes % (Manual) Eosinophils % (Manual) Nucleated RBC % Seg Neutrophils # Seg Neutrophils # Man Lymphocytes # (Manual) Monocytes # (Manual) Eosinophils # (Manual) PT INR APTT POC ABG pH ABG pH POC ABG pCO2 POC ABG pO2 ABG pO2 ABG HCO3 ABG O2 Saturation ABG Base Excess ABG Hemoglobin Oxyhemoglobin Sodium Potassium Chloride Carbon Dioxide BUN Creatinine Glucose POC Glucose 267 H 307 H 292 H Uric Acid Calcium Phosphorus Magnesium AST ALT Total Creatine Kinase CK-MB (CK-2) Troponin T NT-Pro-B Natriuret Pep Total Protein Albumin Triglycerides HDL Cholesterol Urine WBC (Auto) Urine Creatinine Urine Total Protein Vancomycin Trough 06/05/19 06/05/19 06/05/19 03:52 06:41 12:29 WBC RBC Hgb Hct MCV MCH MCHC RDW Plt Count Lymph % (Auto) [place] % (Auto) Eos % (Auto) Lymph # [place] # Eos # Seg Neutrophils % Seg Neuts % (Manual) Lymphocytes % (Manual) Monocytes % (Manual) Eosinophils % (Manual) Nucleated RBC % Seg Neutrophils # Seg Neutrophils # Man Lymphocytes # (Manual) Monocytes # (Manual) Eosinophils # (Manual) PT INR APTT POC ABG pH 7.462 H ABG pH POC ABG pCO2 POC ABG pO2 ABG pO2 ABG HCO3 ABG O2 Saturation ABG Base Excess ABG Hemoglobin Oxyhemoglobin Sodium Potassium Chloride Carbon Dioxide BUN Creatinine Glucose POC Glucose 369 H 265 H Uric Acid Calcium Phosphorus Magnesium AST ALT Total Creatine Kinase CK-MB (CK-2) Troponin T NT-Pro-B Natriuret Pep Total Protein Albumin Triglycerides HDL Cholesterol Urine WBC (Auto) Urine Creatinine Urine Total Protein Vancomycin Trough 06/05/19 06/05/19 06/05/19 18:20 21:42 23:21 WBC RBC Hgb Hct MCV MCH MCHC RDW Plt Count Lymph % (Auto) [place] % (Auto) Eos % (Auto) Lymph # [place] # Eos # Seg Neutrophils % Seg Neuts % (Manual) Lymphocytes % (Manual) Monocytes % (Manual) Eosinophils % (Manual) Nucleated RBC % Seg Neutrophils # Seg Neutrophils # Man Lymphocytes # (Manual) Monocytes # (Manual) Eosinophils # (Manual) PT INR APTT POC ABG pH ABG pH POC ABG pCO2 POC ABG pO2 ABG pO2 ABG HCO3 ABG O2 Saturation ABG Base Excess ABG Hemoglobin Oxyhemoglobin Sodium Potassium Chloride Carbon Dioxide BUN Creatinine Glucose POC Glucose 249 H 246 H 274 H Uric Acid Calcium Phosphorus Magnesium AST ALT Total Creatine Kinase CK-MB (CK-2) Troponin T NT-Pro-B Natriuret Pep Total Protein Albumin Triglycerides HDL Cholesterol Urine WBC (Auto) Urine Creatinine Urine Total Protein Vancomycin Trough 06/06/19 06/06/19 06/06/19 04:00 05:49 11:34 WBC 18.1 H RBC 3.53 L Hgb 9.5 L Hct 30.3 L MCV MCH 27 L MCHC 31 L RDW 19.5 H Plt Count Lymph % (Auto) [place] % (Auto) Eos % (Auto) Lymph # [place] # Eos # Seg Neutrophils % Seg Neuts % (Manual) 87.0 H Lymphocytes % (Manual) 3.0 L Monocytes % (Manual) 8.0 H Eosinophils % (Manual) Nucleated RBC % Seg Neutrophils # Seg Neutrophils # Man 15.7 H Lymphocytes # (Manual) 0.5 L Monocytes # (Manual) 1.4 H Eosinophils # (Manual) PT INR APTT POC ABG pH ABG pH 7.472 H POC ABG pCO2 POC ABG pO2 ABG pO2 76.4 L ABG HCO3 28.1 H ABG O2 Saturation ABG Base Excess 4.3 H ABG Hemoglobin 12.5 L Oxyhemoglobin 93.8 L Sodium Potassium Chloride Carbon Dioxide BUN Creatinine Glucose POC Glucose 340 H Uric Acid Calcium Phosphorus Magnesium AST ALT Total Creatine Kinase CK-MB (CK-2) Troponin T NT-Pro-B Natriuret Pep Total Protein Albumin Triglycerides HDL Cholesterol Urine WBC (Auto) Urine Creatinine Urine Total Protein Vancomycin Trough 06/06/19 06/06/19 06/06/19 11:34 12:11 18:10 WBC RBC Hgb Hct MCV MCH MCHC RDW Plt Count Lymph % (Auto) [place] % (Auto) Eos % (Auto) Lymph # [place] # Eos # Seg Neutrophils % Seg Neuts % (Manual) Lymphocytes % (Manual) Monocytes % (Manual) Eosinophils % (Manual) Nucleated RBC % Seg Neutrophils # Seg Neutrophils # Man Lymphocytes # (Manual) Monocytes # (Manual) Eosinophils # (Manual) PT INR APTT POC ABG pH ABG pH POC ABG pCO2 POC ABG pO2 ABG pO2 ABG HCO3 ABG O2 Saturation ABG Base Excess ABG Hemoglobin Oxyhemoglobin Sodium Potassium Chloride Carbon Dioxide BUN 70 H Creatinine Glucose 310 H POC Glucose 283 H 301 H Uric Acid Calcium 8.3 L Phosphorus 4.60 H Magnesium AST ALT 75 H Total Creatine Kinase CK-MB (CK-2) Troponin T NT-Pro-B Natriuret Pep Total Protein 5.6 L Albumin 2.9 L Triglycerides HDL Cholesterol Urine WBC (Auto) Urine Creatinine Urine Total Protein Vancomycin Trough 06/06/19 06/06/19 06/07/19 22:21 23:16 04:30 WBC RBC Hgb Hct MCV MCH MCHC RDW Plt Count Lymph % (Auto) [place] % (Auto) Eos % (Auto) Lymph # [place] # Eos # Seg Neutrophils % Seg Neuts % (Manual) Lymphocytes % (Manual) Monocytes % (Manual) Eosinophils % (Manual) Nucleated RBC % Seg Neutrophils # Seg Neutrophils # Man Lymphocytes # (Manual) Monocytes # (Manual) Eosinophils # (Manual) PT INR APTT POC ABG pH ABG pH 7.480 H POC ABG pCO2 POC ABG pO2 ABG pO2 77.0 L ABG HCO3 27.2 H ABG O2 Saturation ABG Base Excess 3.5 H ABG Hemoglobin 7.1 L Oxyhemoglobin 94.2 L Sodium Potassium Chloride Carbon Dioxide BUN Creatinine Glucose POC Glucose 289 H 343 H Uric Acid Calcium Phosphorus Magnesium AST ALT Total Creatine Kinase CK-MB (CK-2) Troponin T NT-Pro-B Natriuret Pep Total Protein Albumin Triglycerides HDL Cholesterol Urine WBC (Auto) Urine Creatinine Urine Total Protein Vancomycin Trough 06/07/19 06/07/19 06/07/19 05:15 12:52 18:41 WBC RBC Hgb Hct MCV MCH MCHC RDW Plt Count Lymph % (Auto) [place] % (Auto) Eos % (Auto) Lymph # [place] # Eos # Seg Neutrophils % Seg Neuts % (Manual) Lymphocytes % (Manual) Monocytes % (Manual) Eosinophils % (Manual) Nucleated RBC % Seg Neutrophils # Seg Neutrophils # Man Lymphocytes # (Manual) Monocytes # (Manual) Eosinophils # (Manual) PT INR APTT POC ABG pH ABG pH POC ABG pCO2 POC ABG pO2 ABG pO2 ABG HCO3 ABG O2 Saturation ABG Base Excess ABG Hemoglobin Oxyhemoglobin Sodium Potassium Chloride Carbon Dioxide BUN Creatinine Glucose POC Glucose 307 H 226 H 187 H Uric Acid Calcium Phosphorus Magnesium AST ALT Total Creatine Kinase CK-MB (CK-2) Troponin T NT-Pro-B Natriuret Pep Total Protein Albumin Triglycerides HDL Cholesterol Urine WBC (Auto) Urine Creatinine Urine Total Protein Vancomycin Trough 06/07/19 06/07/19 06/08/19 22:54 23:46 04:20 WBC 16.0 H RBC Hgb 10.0 L Hct 32.1 L MCV MCH 27 L MCHC 31 L RDW 19.4 H Plt Count Lymph % (Auto) [place] % (Auto) Eos % (Auto) Lymph # [place] # Eos # Seg Neutrophils % Seg Neuts % (Manual) 87.0 H Lymphocytes % (Manual) 7.0 L Monocytes % (Manual) Eosinophils % (Manual) Nucleated RBC % Seg Neutrophils # Seg Neutrophils # Man 13.9 H Lymphocytes # (Manual) 1.1 L Monocytes # (Manual) 1.0 H Eosinophils # (Manual) PT INR APTT POC ABG pH ABG pH POC ABG pCO2 POC ABG pO2 ABG pO2 ABG HCO3 ABG O2 Saturation ABG Base Excess ABG Hemoglobin Oxyhemoglobin Sodium Potassium Chloride Carbon Dioxide BUN Creatinine Glucose POC Glucose 199 H 172 H Uric Acid Calcium Phosphorus Magnesium AST ALT Total Creatine Kinase CK-MB (CK-2) Troponin T NT-Pro-B Natriuret Pep Total Protein Albumin Triglycerides HDL Cholesterol Urine WBC (Auto) Urine Creatinine Urine Total Protein Vancomycin Trough 06/08/19 06/08/19 06/08/19 04:20 05:15 11:31 WBC RBC Hgb Hct MCV MCH MCHC RDW Plt Count Lymph % (Auto) [place] % (Auto) Eos % (Auto) Lymph # [place] # Eos # Seg Neutrophils % Seg Neuts % (Manual) Lymphocytes % (Manual) Monocytes % (Manual) Eosinophils % (Manual) Nucleated RBC % Seg Neutrophils # Seg Neutrophils # Man Lymphocytes # (Manual) Monocytes # (Manual) Eosinophils # (Manual) PT INR APTT POC ABG pH ABG pH POC ABG pCO2 POC ABG pO2 ABG pO2 ABG HCO3 ABG O2 Saturation ABG Base Excess ABG Hemoglobin Oxyhemoglobin Sodium 146 H D Potassium Chloride Carbon Dioxide BUN 77 H Creatinine Glucose 205 H POC Glucose 209 H 181 H Uric Acid Calcium Phosphorus Magnesium AST ALT 66 H Total Creatine Kinase CK-MB (CK-2) Troponin T NT-Pro-B Natriuret Pep Total Protein 5.5 L Albumin 2.9 L Triglycerides HDL Cholesterol Urine WBC (Auto) Urine Creatinine Urine Total Protein Vancomycin Trough 06/08/19 06/08/19 06/09/19 17:28 23:24 05:20 WBC RBC Hgb Hct MCV MCH MCHC RDW Plt Count Lymph % (Auto) [place] % (Auto) Eos % (Auto) Lymph # [place] # Eos # Seg Neutrophils % Seg Neuts % (Manual) Lymphocytes % (Manual) Monocytes % (Manual) Eosinophils % (Manual) Nucleated RBC % Seg Neutrophils # Seg Neutrophils # Man Lymphocytes # (Manual) Monocytes # (Manual) Eosinophils # (Manual) PT INR APTT POC ABG pH ABG pH POC ABG pCO2 POC ABG pO2 ABG pO2 ABG HCO3 ABG O2 Saturation ABG Base Excess ABG Hemoglobin Oxyhemoglobin Sodium Potassium Chloride Carbon Dioxide BUN Creatinine Glucose POC Glucose 215 H 200 H 173 H Uric Acid Calcium Phosphorus Magnesium AST ALT Total Creatine Kinase CK-MB (CK-2) Troponin T NT-Pro-B Natriuret Pep Total Protein Albumin Triglycerides HDL Cholesterol Urine WBC (Auto) Urine Creatinine Urine Total Protein Vancomycin Trough 06/09/19 06/09/19 06/09/19 12:07 18:32 23:51 WBC RBC Hgb Hct MCV MCH MCHC RDW Plt Count Lymph % (Auto) [place] % (Auto) Eos % (Auto) Lymph # [place] # Eos # Seg Neutrophils % Seg Neuts % (Manual) Lymphocytes % (Manual) Monocytes % (Manual) Eosinophils % (Manual) Nucleated RBC % Seg Neutrophils # Seg Neutrophils # Man Lymphocytes # (Manual) Monocytes # (Manual) Eosinophils # (Manual) PT INR APTT POC ABG pH ABG pH POC ABG pCO2 POC ABG pO2 ABG pO2 ABG HCO3 ABG O2 Saturation ABG Base Excess ABG Hemoglobin Oxyhemoglobin Sodium Potassium Chloride Carbon Dioxide BUN Creatinine Glucose POC Glucose 117 H 169 H 147 H Uric Acid Calcium Phosphorus Magnesium AST ALT Total Creatine Kinase CK-MB (CK-2) Troponin T NT-Pro-B Natriuret Pep Total Protein Albumin Triglycerides HDL Cholesterol Urine WBC (Auto) Urine Creatinine Urine Total Protein Vancomycin Trough 06/10/19 06/10/19 06/10/19 05:45 05:45 06:01 WBC 14.6 H RBC Hgb 9.9 L Hct 32.2 L MCV MCH 27 L MCHC 31 L RDW 19.6 H Plt Count Lymph % (Auto) 10.5 L [place] % (Auto) 9.4 H Eos % (Auto) Lymph # [place] # 1.4 H Eos # Seg Neutrophils % 79.9 H Seg Neuts % (Manual) Lymphocytes % (Manual) Monocytes % (Manual) Eosinophils % (Manual) Nucleated RBC % Seg Neutrophils # 11.7 H Seg Neutrophils # Man Lymphocytes # (Manual) Monocytes # (Manual) Eosinophils # (Manual) PT INR APTT POC ABG pH ABG pH POC ABG pCO2 POC ABG pO2 ABG pO2 ABG HCO3 ABG O2 Saturation ABG Base Excess ABG Hemoglobin Oxyhemoglobin Sodium 150 H Potassium Chloride 108.3 H Carbon Dioxide BUN 49 H Creatinine Glucose 172 H POC Glucose 165 H Uric Acid Calcium Phosphorus Magnesium 1.40 L AST ALT Total Creatine Kinase CK-MB (CK-2) Troponin T NT-Pro-B Natriuret Pep Total Protein Albumin Triglycerides HDL Cholesterol Urine WBC (Auto) Urine Creatinine Urine Total Protein Vancomycin Trough 06/10/19 06/10/19 06/11/19 12:11 18:30 00:02 WBC RBC Hgb Hct MCV MCH MCHC RDW Plt Count Lymph % (Auto) [place] % (Auto) Eos % (Auto) Lymph # [place] # Eos # Seg Neutrophils % Seg Neuts % (Manual) Lymphocytes % (Manual) Monocytes % (Manual) Eosinophils % (Manual) Nucleated RBC % Seg Neutrophils # Seg Neutrophils # Man Lymphocytes # (Manual) Monocytes # (Manual) Eosinophils # (Manual) PT INR APTT POC ABG pH ABG pH POC ABG pCO2 POC ABG pO2 ABG pO2 ABG HCO3 ABG O2 Saturation ABG Base Excess ABG Hemoglobin Oxyhemoglobin Sodium Potassium Chloride Carbon Dioxide BUN Creatinine Glucose POC Glucose 150 H 154 H 130 H Uric Acid Calcium Phosphorus Magnesium AST ALT Total Creatine Kinase CK-MB (CK-2) Troponin T NT-Pro-B Natriuret Pep Total Protein Albumin Triglycerides HDL Cholesterol Urine WBC (Auto) Urine Creatinine Urine Total Protein Vancomycin Trough 06/11/19 06/11/19 06/11/19 05:33 08:34 12:33 WBC RBC Hgb Hct MCV MCH MCHC RDW Plt Count Lymph % (Auto) [place] % (Auto) Eos % (Auto) Lymph # [place] # Eos # Seg Neutrophils % Seg Neuts % (Manual) Lymphocytes % (Manual) Monocytes % (Manual) Eosinophils % (Manual) Nucleated RBC % Seg Neutrophils # Seg Neutrophils # Man Lymphocytes # (Manual) Monocytes # (Manual) Eosinophils # (Manual) PT INR APTT POC ABG pH ABG pH POC ABG pCO2 POC ABG pO2 ABG pO2 ABG HCO3 ABG O2 Saturation ABG Base Excess ABG Hemoglobin Oxyhemoglobin Sodium 154 H Potassium Chloride 111.6 H Carbon Dioxide BUN 41 H Creatinine Glucose 147 H POC Glucose 183 H 185 H Uric Acid Calcium Phosphorus Magnesium AST ALT Total Creatine Kinase CK-MB (CK-2) Troponin T NT-Pro-B Natriuret Pep Total Protein Albumin Triglycerides HDL Cholesterol Urine WBC (Auto) Urine Creatinine Urine Total Protein Vancomycin Trough 06/11/19 06/11/19 06/12/19 18:22 23:46 03:21 WBC 11.9 H RBC 3.61 L Hgb 9.9 L Hct 31.7 L MCV MCH 27 L MCHC 31 L RDW 19.3 H Plt Count Lymph % (Auto) 10.6 L [place] % (Auto) 8.6 H Eos % (Auto) Lymph # [place] # 1.0 H Eos # Seg Neutrophils % 80.6 H Seg Neuts % (Manual) Lymphocytes % (Manual) Monocytes % (Manual) Eosinophils % (Manual) Nucleated RBC % Seg Neutrophils # 9.6 H Seg Neutrophils # Man Lymphocytes # (Manual) Monocytes # (Manual) Eosinophils # (Manual) PT INR APTT POC ABG pH ABG pH POC ABG pCO2 POC ABG pO2 ABG pO2 ABG HCO3 ABG O2 Saturation ABG Base Excess ABG Hemoglobin Oxyhemoglobin Sodium Potassium Chloride Carbon Dioxide BUN Creatinine Glucose POC Glucose 158 H 182 H Uric Acid Calcium Phosphorus Magnesium AST ALT Total Creatine Kinase CK-MB (CK-2) Troponin T NT-Pro-B Natriuret Pep Total Protein Albumin Triglycerides HDL Cholesterol Urine WBC (Auto) Urine Creatinine Urine Total Protein Vancomycin Trough 06/12/19 06/12/19 06/12/19 03:21 06:04 11:28 WBC RBC Hgb Hct MCV MCH MCHC RDW Plt Count Lymph % (Auto) [place] % (Auto) Eos % (Auto) Lymph # [place] # Eos # Seg Neutrophils % Seg Neuts % (Manual) Lymphocytes % (Manual) Monocytes % (Manual) Eosinophils % (Manual) Nucleated RBC % Seg Neutrophils # Seg Neutrophils # Man Lymphocytes # (Manual) Monocytes # (Manual) Eosinophils # (Manual) PT INR APTT POC ABG pH ABG pH POC ABG pCO2 POC ABG pO2 ABG pO2 ABG HCO3 ABG O2 Saturation ABG Base Excess ABG Hemoglobin Oxyhemoglobin Sodium 148 H Potassium Chloride 107.3 H Carbon Dioxide BUN 34 H Creatinine 0.7 L Glucose 194 H POC Glucose 133 H 167 H Uric Acid Calcium Phosphorus Magnesium 1.40 L AST ALT Total Creatine Kinase CK-MB (CK-2) Troponin T NT-Pro-B Natriuret Pep Total Protein Albumin Triglycerides HDL Cholesterol Urine WBC (Auto) Urine Creatinine Urine Total Protein Vancomycin Trough 06/12/19 06/12/19 06/13/19 18:47 21:27 00:04 WBC RBC Hgb Hct MCV MCH MCHC RDW Plt Count Lymph % (Auto) [place] % (Auto) Eos % (Auto) Lymph # [place] # Eos # Seg Neutrophils % Seg Neuts % (Manual) Lymphocytes % (Manual) Monocytes % (Manual) Eosinophils % (Manual) Nucleated RBC % Seg Neutrophils # Seg Neutrophils # Man Lymphocytes # (Manual) Monocytes # (Manual) Eosinophils # (Manual) PT INR APTT POC ABG pH ABG pH POC ABG pCO2 POC ABG pO2 ABG pO2 ABG HCO3 ABG O2 Saturation ABG Base Excess ABG Hemoglobin Oxyhemoglobin Sodium Potassium Chloride Carbon Dioxide BUN Creatinine Glucose POC Glucose 210 H 263 H 248 H Uric Acid Calcium Phosphorus Magnesium AST ALT Total Creatine Kinase CK-MB (CK-2) Troponin T NT-Pro-B Natriuret Pep Total Protein Albumin Triglycerides HDL Cholesterol Urine WBC (Auto) Urine Creatinine Urine Total Protein Vancomycin Trough 06/13/19 06/13/19 06/13/19 04:32 05:46 13:30 WBC RBC Hgb Hct MCV MCH MCHC RDW Plt Count Lymph % (Auto) [place] % (Auto) Eos % (Auto) Lymph # [place] # Eos # Seg Neutrophils % Seg Neuts % (Manual) Lymphocytes % (Manual) Monocytes % (Manual) Eosinophils % (Manual) Nucleated RBC % Seg Neutrophils # Seg Neutrophils # Man Lymphocytes # (Manual) Monocytes # (Manual) Eosinophils # (Manual) PT INR APTT POC ABG pH ABG pH POC ABG pCO2 POC ABG pO2 ABG pO2 ABG HCO3 ABG O2 Saturation ABG Base Excess ABG Hemoglobin Oxyhemoglobin Sodium Potassium Chloride Carbon Dioxide BUN 27 H Creatinine 0.7 L Glucose 253 H POC Glucose 201 H 241 H Uric Acid Calcium Phosphorus Magnesium AST ALT Total Creatine Kinase CK-MB (CK-2) Troponin T NT-Pro-B Natriuret Pep Total Protein Albumin Triglycerides HDL Cholesterol Urine WBC (Auto) Urine Creatinine Urine Total Protein Vancomycin Trough 06/13/19 06/13/19 06/14/19 17:33 23:49 04:50 WBC RBC Hgb Hct MCV MCH MCHC RDW Plt Count Lymph % (Auto) [place] % (Auto) Eos % (Auto) Lymph # [place] # Eos # Seg Neutrophils % Seg Neuts % (Manual) Lymphocytes % (Manual) Monocytes % (Manual) Eosinophils % (Manual) Nucleated RBC % Seg Neutrophils # Seg Neutrophils # Man Lymphocytes # (Manual) Monocytes # (Manual) Eosinophils # (Manual) PT INR APTT POC ABG pH ABG pH POC ABG pCO2 POC ABG pO2 ABG pO2 ABG HCO3 ABG O2 Saturation ABG Base Excess ABG Hemoglobin Oxyhemoglobin Sodium Potassium Chloride Carbon Dioxide BUN 37 H Creatinine Glucose 256 H POC Glucose 264 H 236 H Uric Acid Calcium Phosphorus Magnesium AST ALT Total Creatine Kinase CK-MB (CK-2) Troponin T NT-Pro-B Natriuret Pep Total Protein Albumin Triglycerides HDL Cholesterol Urine WBC (Auto) Urine Creatinine Urine Total Protein Vancomycin Trough 06/14/19 06/14/19 06/14/19 05:26 12:31 18:32 WBC RBC Hgb Hct MCV MCH MCHC RDW Plt Count Lymph % (Auto) [place] % (Auto) Eos % (Auto) Lymph # [place] # Eos # Seg Neutrophils % Seg Neuts % (Manual) Lymphocytes % (Manual) Monocytes % (Manual) Eosinophils % (Manual) Nucleated RBC % Seg Neutrophils # Seg Neutrophils # Man Lymphocytes # (Manual) Monocytes # (Manual) Eosinophils # (Manual) PT INR APTT POC ABG pH ABG pH POC ABG pCO2 POC ABG pO2 ABG pO2 ABG HCO3 ABG O2 Saturation ABG Base Excess ABG Hemoglobin Oxyhemoglobin Sodium Potassium Chloride Carbon Dioxide BUN Creatinine Glucose POC Glucose 239 H 116 H 247 H Uric Acid Calcium Phosphorus Magnesium AST ALT Total Creatine Kinase CK-MB (CK-2) Troponin T NT-Pro-B Natriuret Pep Total Protein Albumin Triglycerides HDL Cholesterol Urine WBC (Auto) Urine Creatinine Urine Total Protein Vancomycin Trough 06/14/19 06/15/19 06/15/19 23:57 04:05 05:55 WBC RBC Hgb Hct MCV MCH MCHC RDW Plt Count Lymph % (Auto) [place] % (Auto) Eos % (Auto) Lymph # [place] # Eos # Seg Neutrophils % Seg Neuts % (Manual) Lymphocytes % (Manual) Monocytes % (Manual) Eosinophils % (Manual) Nucleated RBC % Seg Neutrophils # Seg Neutrophils # Man Lymphocytes # (Manual) Monocytes # (Manual) Eosinophils # (Manual) PT INR APTT POC ABG pH ABG pH POC ABG pCO2 POC ABG pO2 ABG pO2 ABG HCO3 ABG O2 Saturation ABG Base Excess ABG Hemoglobin Oxyhemoglobin Sodium Potassium Chloride Carbon Dioxide BUN 46 H Creatinine 0.7 L Glucose 265 H POC Glucose 206 H 265 H Uric Acid Calcium Phosphorus Magnesium AST ALT Total Creatine Kinase CK-MB (CK-2) Troponin T NT-Pro-B Natriuret Pep Total Protein Albumin Triglycerides HDL Cholesterol Urine WBC (Auto) Urine Creatinine Urine Total Protein Vancomycin Trough 06/15/19 06/15/19 06/15/19 12:08 18:45 23:41 WBC RBC Hgb Hct MCV MCH MCHC RDW Plt Count Lymph % (Auto) [place] % (Auto) Eos % (Auto) Lymph # [place] # Eos # Seg Neutrophils % Seg Neuts % (Manual) Lymphocytes % (Manual) Monocytes % (Manual) Eosinophils % (Manual) Nucleated RBC % Seg Neutrophils # Seg Neutrophils # Man Lymphocytes # (Manual) Monocytes # (Manual) Eosinophils # (Manual) PT INR APTT POC ABG pH ABG pH POC ABG pCO2 POC ABG pO2 ABG pO2 ABG HCO3 ABG O2 Saturation ABG Base Excess ABG Hemoglobin Oxyhemoglobin Sodium Potassium Chloride Carbon Dioxide BUN Creatinine Glucose POC Glucose 224 H 177 H 193 H Uric Acid Calcium Phosphorus Magnesium AST ALT Total Creatine Kinase CK-MB (CK-2) Troponin T NT-Pro-B Natriuret Pep Total Protein Albumin Triglycerides HDL Cholesterol Urine WBC (Auto) Urine Creatinine Urine Total Protein Vancomycin Trough 06/16/19 06/16/19 06/16/19 05:00 05:00 05:40 WBC 11.9 H RBC 3.24 L Hgb 9.0 L Hct 29.0 L MCV MCH MCHC 31 L RDW 18.6 H Plt Count 111 L Lymph % (Auto) [place] % (Auto) Eos % (Auto) Lymph # [place] # Eos # Seg Neutrophils % Seg Neuts % (Manual) 92.0 H Lymphocytes % (Manual) 2.0 L Monocytes % (Manual) Eosinophils % (Manual) Nucleated RBC % Seg Neutrophils # Seg Neutrophils # Man 10.9 H Lymphocytes # (Manual) 0.2 L Monocytes # (Manual) Eosinophils # (Manual) PT INR APTT POC ABG pH ABG pH POC ABG pCO2 POC ABG pO2 ABG pO2 ABG HCO3 ABG O2 Saturation ABG Base Excess ABG Hemoglobin Oxyhemoglobin Sodium Potassium Chloride Carbon Dioxide 33 H BUN 49 H Creatinine 0.7 L Glucose 264 H POC Glucose 247 H Uric Acid Calcium Phosphorus Magnesium AST ALT Total Creatine Kinase CK-MB (CK-2) Troponin T NT-Pro-B Natriuret Pep Total Protein Albumin Triglycerides HDL Cholesterol Urine WBC (Auto) Urine Creatinine Urine Total Protein Vancomycin Trough 06/16/19 06/16/19 06/16/19 12:03 17:11 18:11 WBC RBC Hgb Hct MCV MCH MCHC RDW Plt Count Lymph % (Auto) [place] % (Auto) Eos % (Auto) Lymph # [place] # Eos # Seg Neutrophils % Seg Neuts % (Manual) Lymphocytes % (Manual) Monocytes % (Manual) Eosinophils % (Manual) Nucleated RBC % Seg Neutrophils # Seg Neutrophils # Man Lymphocytes # (Manual) Monocytes # (Manual) Eosinophils # (Manual) PT INR APTT POC ABG pH ABG pH 7.289 L POC ABG pCO2 POC ABG pO2 ABG pO2 399.3 H ABG HCO3 30.1 H ABG O2 Saturation 99.6 H ABG Base Excess ABG Hemoglobin 8.6 L Oxyhemoglobin Sodium Potassium Chloride Carbon Dioxide BUN Creatinine Glucose POC Glucose 252 H 254 H Uric Acid Calcium Phosphorus Magnesium AST ALT Total Creatine Kinase CK-MB (CK-2) Troponin T NT-Pro-B Natriuret Pep Total Protein Albumin Triglycerides HDL Cholesterol Urine WBC (Auto) Urine Creatinine Urine Total Protein Vancomycin Trough 06/16/19 06/17/19 06/17/19 23:16 05:30 05:53 WBC RBC Hgb Hct MCV MCH MCHC RDW Plt Count Lymph % (Auto) [place] % (Auto) Eos % (Auto) Lymph # [place] # Eos # Seg Neutrophils % Seg Neuts % (Manual) Lymphocytes % (Manual) Monocytes % (Manual) Eosinophils % (Manual) Nucleated RBC % Seg Neutrophils # Seg Neutrophils # Man Lymphocytes # (Manual) Monocytes # (Manual) Eosinophils # (Manual) PT INR APTT POC ABG pH ABG pH POC ABG pCO2 POC ABG pO2 ABG pO2 ABG HCO3 ABG O2 Saturation ABG Base Excess ABG Hemoglobin Oxyhemoglobin Sodium 147 H Potassium Chloride Carbon Dioxide 32 H BUN 60 H Creatinine Glucose 205 H POC Glucose 238 H 211 H Uric Acid Calcium Phosphorus Magnesium AST ALT Total Creatine Kinase CK-MB (CK-2) Troponin T NT-Pro-B Natriuret Pep Total Protein Albumin Triglycerides HDL Cholesterol Urine WBC (Auto) Urine Creatinine Urine Total Protein Vancomycin Trough 06/17/19 06/17/19 06/17/19 09:50 12:27 Unknown WBC RBC 2.79 L Hgb 8.2 L Hct 24.6 L MCV MCH MCHC RDW 18.5 H Plt Count 95 L Lymph % (Auto) [place] % (Auto) Eos % (Auto) Lymph # [place] # Eos # Seg Neutrophils % Seg Neuts % (Manual) Lymphocytes % (Manual) Monocytes % (Manual) Eosinophils % (Manual) Nucleated RBC % Seg Neutrophils # Seg Neutrophils # Man Lymphocytes # (Manual) Monocytes # (Manual) Eosinophils # (Manual) PT INR APTT POC ABG pH ABG pH 7.564 H POC ABG pCO2 POC ABG pO2 ABG pO2 238.6 H ABG HCO3 33.6 H ABG O2 Saturation 99.4 H ABG Base Excess 10.6 H ABG Hemoglobin 7.9 L Oxyhemoglobin Sodium Potassium Chloride Carbon Dioxide BUN Creatinine Glucose POC Glucose 224 H Uric Acid Calcium Phosphorus Magnesium AST ALT Total Creatine Kinase CK-MB (CK-2) Troponin T NT-Pro-B Natriuret Pep Total Protein Albumin Triglycerides HDL Cholesterol Urine WBC (Auto) Urine Creatinine Urine Total Protein Vancomycin Trough Chest x-ray: report reviewed, image reviewed
[2019-06-17] MEDS ORDERED: VANCOMYCIN PHARMACY TO DOSE IV SCH (14:00)
[2019-06-17] MEDS ORDERED: fentaNYL DRIP Premix 2,000 MCG/100 ML BAG IV SCH (14:00)
[2019-06-17 14:10] LABS: Bilirubin,Urine NEG (Negative); Blood,Urine SM (Negative); Color,Urine Yellow (Yellow); Mucus,Urine FEW /HPF; Protein,Urine <15 mg/dL mg/dL (Negative); Urobilinogen,Urine < 2.0 mg/dL (<2.0)
[2019-06-17] MEDS: CEFEPIME/NS 2 GM/100 ML 2 GM/100 ML BAG IV SCH ×2 (14:47→21:22)
--- NOTE | 2019-06-17 15:01 | Progress Note ---
Assessment and Plan Assessment and plan: 34-year-old man with morbid obesity was brought to the hospital for shortness of breath and insomnia. He was found to have severe hypoxia and bradycardia who then became pulseless, he was cyanotic and he was intubated after receiving CPR with 2 rounds of epinephrine. Hypertensive emergency cont bp meds off cardene drip since 06/13 Acute respiratory failure with hypoxia on mechanical ventilator greater than 96 hours -Obesity hypoventilation Patient extubated 06/07 after being on the ventilator for 37 days, now reintubated on 06/16 plan for trache/peg, dw GS Status post cardiac arrest anoxic/ischemic brain injury Patient's mentation is improved ., EEG was negative for seizures and neurology consult appreciated. Severe malnutrition Dysphasia; dw with his mom, she is agreeable to PEG tube, GS consulted -Dietitian input appreciated, continue tube feeds Acute kidney injury due to ATN Dialysis now put on hold, kidney function improving Nephrology input appreciated, tolerating diuretics -PC will be dc by neph if continues to improve Fluid overload Continue diuretics, being dosed by accountancy professor Morbid obesity; will need weight loss program upon discharge DVT prophylaxis; Lovenox Disposition; does not have a pay source for rehab, therefore home with home health services CCT 33 minutes NOK is momWilfred Alexander [phone] History Interval history: No fevers No vomiting no seizure-like activity No diarrhea No agitation No obvious discomfort Hospitalist Physical - Physical exam Narrative exam: General.: Morbidly obese HEENT: Moist mucous membranes, extraocular muscles intact, no lymphadenopathy Neck: supple Cardiac: S1-S2 heard Lungs: clear to auscultation bilaterally Abdomen: soft , nontender, nondistended, bowel sounds positive Extremities: edema in all extremities Skin: no rash or lesions Neurologic: He is awake and alert. He is currently nonverbal. But he nods and shakes his head. He obeys commands, intubated Psych: calm, - Constitutional Vitals: Temp Pulse Resp BP Pulse Ox 102.0 F H 106 H 18 122/52 100 06/17/19 12:00 06/17/19 14:46 06/17/19 10:00 06/17/19 14:46 06/17/19 12:16 General appearance: Present: no acute distress Results - Labs CBC & Chem 7: 06/17/19 09:50 06/17/19 05:30 Labs: Laboratory Last Values WBC 10.0 K/mm3 (4.5-11.0) 06/17/19 09:50 RBC 2.79 M/mm3 (3.65-5.03) L 06/17/19 09:50 Hgb 8.2 gm/dl (11.8-15.2) L 06/17/19 09:50 Hct 24.6 % (35.5-45.6) L 06/17/19 09:50 MCV 88 fl (84-94) 06/17/19 09:50 MCH 30 pg (28-32) 06/17/19 09:50 MCHC 33 % (32-34) 06/17/19 09:50 RDW 18.5 % (13.2-15.2) H 06/17/19 09:50 Plt Count 95 K/mm3 (140-440) L 06/17/19 09:50 Lymph % (Auto) 10.6 % (13.4-35.0) L 06/12/19 03:21 [place] % (Auto) 8.6 % (0.0-7.3) H 06/12/19 03:21 Eos % (Auto) 0.0 % (0.0-4.3) 06/12/19 03:21 Baso % (Auto) 0.2 % (0.0-1.8) 06/12/19 03:21 Lymph # 1.3 K/mm3 (1.2-5.4) 06/12/19 03:21 [place] # 1.0 K/mm3 (0.0-0.8) H 06/12/19 03:21 Eos # 0.0 K/mm3 (0.0-0.4) 06/12/19 03:21 Baso # 0.0 K/mm3 (0.0-0.1) 06/12/19 03:21 Add Manual Diff Complete 06/16/19 05:00 Total Counted 100 06/16/19 05:00 Seg Neutrophils % Chemical Weigher 06/16/19 05:00 Seg Neuts % (Manual) 92.0 % (40.0-70.0) H 06/16/19 05:00 Band Neutrophils % 0 % 06/16/19 05:00 Lymphocytes % (Manual) 2.0 % (13.4-35.0) L 06/16/19 05:00 Reactive Lymphs % (Man) 0 % 06/16/19 05:00 Monocytes % (Manual) 6.0 % (0.0-7.3) 06/16/19 05:00 Eosinophils % (Manual) 0 % (0.0-4.3) 06/16/19 05:00 Basophils % (Manual) 0 % (0.0-1.8) 06/16/19 05:00 Metamyelocytes % 0 % 06/16/19 05:00 Myelocytes % 0 % 06/16/19 05:00 Promyelocytes % 0 % 06/16/19 05:00 Blast Cells % 0 % 06/16/19 05:00 Nucleated RBC % Not Reportable 06/16/19 05:00 Seg Neutrophils # 9.6 K/mm3 (1.8-7.7) H 06/12/19 03:21 Seg Neutrophils # Man 10.9 K/mm3 (1.8-7.7) H 06/16/19 05:00 Band Neutrophils # 0.0 K/mm3 06/16/19 05:00 Lymphocytes # (Manual) 0.2 K/mm3 (1.2-5.4) L 06/16/19 05:00 Abs React Lymphs (Man) 0.0 K/mm3 06/16/19 05:00 Monocytes # (Manual) 0.7 K/mm3 (0.0-0.8) 06/16/19 05:00 Eosinophils # (Manual) 0.0 K/mm3 (0.0-0.4) 06/16/19 05:00 Basophils # (Manual) 0.0 K/mm3 (0.0-0.1) 06/16/19 05:00 Metamyelocytes # 0.0 K/mm3 06/16/19 05:00 Myelocytes # 0.0 K/mm3 06/16/19 05:00 Promyelocytes # 0.0 K/mm3 06/16/19 05:00 Blast Cells # 0.0 K/mm3 06/16/19 05:00 WBC Morphology Not Reportable 06/16/19 05:00 Hypersegmented Neuts Not Reportable 06/16/19 05:00 Hyposegmented Neuts Not Reportable 06/16/19 05:00 Hypogranular Neuts Not Reportable 06/16/19 05:00 Smudge Cells Not Reportable 06/16/19 05:00 Toxic Granulation Not Reportable 06/16/19 05:00 Toxic Vacuolation Not Reportable 06/16/19 05:00 Dohle Bodies Not Reportable 06/16/19 05:00 Pelger-Huet Anomaly Not Reportable 06/16/19 05:00 Renea Rods Not Reportable 06/16/19 05:00 Platelet Estimate Consistent w auto 06/16/19 05:00 Clumped Platelets Not Reportable 06/16/19 05:00 Plt Clumps, EDTA Not Reportable 06/16/19 05:00 Large Platelets Not Reportable 06/16/19 05:00 Giant Platelets Not Reportable 06/16/19 05:00 Platelet Satelliting Not Reportable 06/16/19 05:00 Plt Morphology Comment Not Reportable 06/16/19 05:00 RBC Morphology Not Reportable 06/16/19 05:00 Dimorphic RBCs Not Reportable 06/16/19 05:00 Polychromasia Not Reportable 06/16/19 05:00 Hypochromasia Not Reportable 06/16/19 05:00 Poikilocytosis Not Reportable 06/16/19 05:00 Anisocytosis Not Reportable 06/16/19 05:00 Microcytosis Not Reportable 06/16/19 05:00 Macrocytosis Not Reportable 06/16/19 05:00 Spherocytes Not Reportable 06/16/19 05:00 Pappenheimer Bodies Not Reportable 06/16/19 05:00 Sickle Cells Not Reportable 06/16/19 05:00 Target Cells Not Reportable 06/16/19 05:00 Tear Drop Cells Not Reportable 06/16/19 05:00 Ovalocytes Not Reportable 06/16/19 05:00 Stomatocytes Few 06/16/19 05:00 Helmet Cells Not Reportable 06/16/19 05:00 [place] Bodies Not Reportable 06/16/19 05:00 [place] Rings Not Reportable 06/16/19 05:00 [place] Cells Not Reportable 06/16/19 05:00 Bite Cells Not Reportable 06/16/19 05:00 Crenated Cell Not Reportable 06/16/19 05:00 Elliptocytes Not Reportable 06/16/19 05:00 Acanthocytes (Spur) Not Reportable 06/16/19 05:00 Rouleaux Not Reportable 06/16/19 05:00 Hemoglobin C Crystals Not Reportable 06/16/19 05:00 Schistocytes Not Reportable 06/16/19 05:00 Malaria parasites Not Reportable 06/16/19 05:00 Syed Bodies Not Reportable 06/16/19 05:00 Hem Pathologist Commnt No 06/16/19 05:00 PT 15.4 Sec. (12.2-14.9) H 05/01/19 Unknown INR 1.23 (0.87-1.13) H 05/01/19 Unknown APTT 22.7 Sec. (24.2-36.6) L 05/01/19 Unknown Fibrinogen 194 mg/dl (211-480) L 06/17/19 12:45 POC ABG pH 7.462 (7.35-7.45) H 06/05/19 03:52 ABG pH 7.564 pH Units (7.350-7.450) H 06/17/19 Unknown POC ABG pCO2 39.8 (35-45) 06/05/19 03:52 ABG pCO2 38.0 mm Hg 06/17/19 Unknown POC ABG pO2 86 (80-105) 06/05/19 03:52 ABG pO2 238.6 mm Hg (80.0-90.0) H 06/17/19 Unknown POC ABG HCO3 28.4 (22-26 mml/L) 06/05/19 03:52 ABG HCO3 33.6 mmol/L (20.0-26.0) H 06/17/19 Unknown POC ABG Total CO2 30 (23-27mmol/L) 06/05/19 03:52 POC ABG O2 Sat 97 06/05/19 03:52 ABG O2 Saturation 99.4 % (95.0-99.0) H 06/17/19 Unknown ABG O2 Content 11.5 (0.0-44) 06/17/19 Unknown POC ABG Base Excess 5 ((-2) - (+3)mmol/L) 06/05/19 03:52 ABG Base Excess 10.6 mmol/L (-2.0-3.0) H 06/17/19 Unknown ABG Hemoglobin 7.9 gm/dl (14.0-18.0) L 06/17/19 Unknown ABG Carboxyhemoglobin 1.2 % (0.0-5.0) 06/17/19 Unknown ABG Methemoglobin 0.4 % (0.0-1.5) 06/17/19 Unknown Oxyhemoglobin 97.8 % (95.0-99.0) 06/17/19 Unknown FiO2 60 % 06/17/19 Unknown Sodium 147 mmol/L (137-145) H 06/17/19 05:30 Potassium 3.8 mmol/L (3.6-5.0) 06/17/19 05:30 Chloride 101.7 mmol/L (98-107) 06/17/19 05:30 Carbon Dioxide 32 mmol/L (22-30) H 06/17/19 05:30 Anion Gap 17 mmol/L 06/17/19 05:30 BUN 60 mg/dL (9-20) H 06/17/19 05:30 Creatinine 1.0 mg/dL (0.8-1.5) 06/17/19 05:30 Estimated GFR > 60 ml/min 06/17/19 05:30 BUN/Creatinine Ratio 60 % 06/17/19 05:30 Glucose 205 mg/dL (75-100) H 06/17/19 05:30 POC Glucose 224 (70-105) H 06/17/19 12:27 Osmolality 327 Mosm/kg 05/07/19 13:45 Uric Acid 18.0 mg/dL (3.5-7.6) H 05/07/19 13:45 Calcium 9.6 mg/dL (8.4-10.2) 06/17/19 05:30 Phosphorus 3.70 mg/dL (2.5-4.5) 06/10/19 05:45 Magnesium 1.40 mg/dL (1.7-2.3) L 06/12/19 03:21 Total Bilirubin 0.50 mg/dL (0.1-1.2) 06/08/19 04:20 AST 23 units/L (5-40) 06/08/19 04:20 ALT 66 units/L (7-56) H 06/08/19 04:20 Alkaline Phosphatase 59 units/L (35-129) 06/08/19 04:20 Total Creatine Kinase 131 units/L (55-170) 05/02/19 04:41 CK-MB (CK-2) 5.2 ng/mL (0.0-4.0) H 05/02/19 04:41 CK-MB (CK-2) Rel Index 3.9 (0-4) 05/02/19 04:41 Troponin T 0.067 ng/mL (0.00-0.029) H D 05/02/19 04:41 NT-Pro-B Natriuret Pep 6831 pg/mL (0-450) H 05/01/19 Unknown Total Protein 5.5 g/dL (6.3-8.2) L 06/08/19 04:20 Albumin 2.9 g/dL (3.9-5) L 06/08/19 04:20 Albumin/Globulin Ratio 1.1 % 06/08/19 04:20 Triglycerides 173 mg/dL (2-149) H 05/17/19 Unknown Cholesterol 173 mg/dL (50-199) 05/02/19 00:06 LDL Cholesterol Direct 126 mg/dL (50-130) 05/02/19 00:06 HDL Cholesterol 18 mg/dL (40-59) L 05/02/19 00:06 Cholesterol/HDL Ratio 9.61 % 05/02/19 00:06 Procalcitonin 0.54 ng/mL (<0.15) 05/03/19 11:52 Urine Color Yellow (Yellow) 06/17/19 12:45 Urine Turbidity Slightly-cloudy (Clear) 06/17/19 12:45 Urine pH 5.0 (5.0-7.0) 06/17/19 12:45 Ur Specific [place] 1.013 (1.003-1.030) 06/17/19 12:45 Urine Protein <15 mg/dl mg/dL (Negative) 06/17/19 12:45 Urine Glucose (UA) Neg mg/dL (Negative) 06/17/19 12:45 Urine Ketones Neg mg/dL (Negative) 06/17/19 12:45 Urine Blood Sm (Negative) 06/17/19 12:45 Urine Nitrite Neg (Negative) 06/17/19 12:45 Urine Bilirubin Neg (Negative) 06/17/19 12:45 Urine Urobilinogen < 2.0 mg/dL (<2.0) 06/17/19 12:45 Ur Leukocyte Esterase Neg (Negative) 06/17/19 12:45 Urine WBC (Auto) 2.0 /HPF (0.0-6.0) 06/17/19 12:45 Urine RBC (Auto) 2.0 /HPF (0.0-6.0) 06/17/19 12:45 U Epithel Cells (Auto) < 1.0 /HPF (0-13.0) 06/17/19 12:45 Urine Bacteria (Auto) 1+ /HPF (Negative) 05/20/19 12:00 Uric Acid Crystals 3+ 05/03/19 10:55 Urine Mucus Few /HPF 06/17/19 12:45 Urine Yeast (Budding) 3+ /HPF 05/20/19 12:00 Urine Creatinine 292.8 mg/dL (0.1-20.0) H 05/07/19 22:40 Urine Sodium 11 mmol/L 05/07/19 22:40 Urine Total Protein 269 mg/dL (5-11.8) H 05/07/19 22:40 Vancomycin Trough 20.5 ug/mL (5.0-20.0) H 05/15/19 09:00 Random Vancomycin 11.5 ug/mL (0-40.0) 05/27/19 06:00 AMNA Screen Negative (Negative) 05/07/19 13:45 Hepatitis A IgM Ab Non-reactive (NonReactive) 05/07/19 13:45 Hep Bs Antigen Non-reactive (Negative) 05/07/19 13:45 Hep B Core IgM Ab Non-reactive (NonReactive) 05/07/19 13:45 Hepatitis C Antibody Non-reactive (NonReactive) 05/07/19 13:45 Influenza A (Rapid) Negative (Negative) 06/17/19 11:35 Influenza B (Rapid) Negative (Negative) 06/17/19 11:35 Active Medications - Current Medications Current Medications: Generic Name Dose Route Start Last Admin Trade Name Freq PRN Reason Stop Dose Admin Acetaminophen 650 mg 06/17/19 10:00 06/17/19 09:44 Tylenol PO 650 mg Q6H PRN Administration FOR TEMP >/=100.4 Lipase/Protease/Amylase 1 each 05/14/19 15:[address] 10,500 Unit FEEDTUBE PRN PRN For Clogged Feeding Tube Clonidine HCl 0.3 mg 06/06/19 20:00 06/13/19 20:28 Catapres-Tts Patch TD 0.3 mg Lao VICKEY Administration Dextrose 50 gm 05/01/19 20:24 D50w (25gm) Vial IV Q30MIN PRN Hypoglycemia Protocol Enoxaparin Sodium 40 mg 06/16/19 10:00 06/17/19 09:43 Enoxaparin SUB-Q 40 mg QDAY@1000 VICKEY Administration Famotidine 20 mg 06/17/19 10:00 06/17/19 09:43 Pepcid PO 20 mg BID VICKEY Administration Hydrophilic Ointment 1 applic 06/16/19 17:34 Vaseline Lip Therapy TP Q2HR PRN Dry Lips Propofol 1,000 mg in 100 mls @ 7.716 mls/hr 06/16/19 21:00 06/17/19 12:11 Diprivan 10 Mg/Ml IV 20 mcg/kg/min TITR VICKEY 30.864 mls/hr Administration Protocol 5 MCG/KG/MIN Cefepime HCl 2 gm in 100 mls @ 200 mls/hr 06/17/19 14:00 06/17/19 14:47 Cefepime/Ns 2 Gm/100 Ml IV 200 mls/hr Q8HR VICKEY Administration Protocol Vancomycin HCl 2,000 mg/ 540 mls @ 250 mls/hr 06/17/19 18:00 Sodium Chloride IV 06/17/19 20:09 ONCE ONE Fentanyl Citrate 2,000 mcg in 100 mls @ 12.86 mls/hr 06/17/19 14:00 Fentanyl Drip Premix IV TITR VICKEY Protocol 1 MCG/KG/HR Insulin Glargine 15 units 06/16/19 22:00 06/16/19 21:43 Lantus SUB-Q 15 units QHS VICKEY Administration Insulin Human Lispro 0 unit 06/01/19 14:00 06/17/19 12:25 Humalog SUB-Q 4 unit Q6HR VICKEY Administration Protocol Labetalol HCl 10 mg 06/11/19 22:48 06/16/19 19:47 Labetalol IV 10 mg Q4H PRN Administration BP >170/105; hold for HR <60 Labetalol HCl 200 mg 06/13/19 11:36 06/17/19 14:46 Labetalol PO 200 mg Q8HR VICKEY Administration Levetiracetam 750 mg 06/16/19 10:00 06/17/19 09:45 Keppra PO 750 mg BID VICKEY Administration Methylprednisolone Sodium Succinate 20 mg 06/14/19 18:00 06/17/19 09:44 Solu-Medrol IV 20 mg Q8H VICKEY Administration Minoxidil 2.5 mg 06/06/19 22:00 06/17/19 09:47 Loniten PO 2.5 mg BID VICKEY Administration Multi-Ingred Cream/Lotion/Oil/Oint 1 applic 06/16/19 18:00 Artificial Tears Ophth Oint OU Q4HR PRN Dry Eye(s) Simple Syrup 15 ml 05/14/19 15:01 Simple Syrup FEEDTUBE PRN PRN Hypoglycemia Simple Syrup 30 ml 05/14/19 15:01 Simple Syrup FEEDTUBE PRN PRN Hypoglycemia Sodium Bicarbonate 325 mg 05/14/19 15:01 Sodium Bicarbonate FEEDTUBE PRN PRN For Clogged Feeding Tube Nutrition/Malnutrition Assess - Dietary Evaluation Nutrition/Malnutrition Findings: Nutrition Notes Start: 05/04/19 12:54 Freq: Status: Active Protocol: Document 06/16/19 12:24 CW (Rec: 06/16/19 12:34 CW [id number]) Co-Sign 06/16/19 12:24 LP Nutrition Notes Initial or Follow up Reassessment Current Diagnosis Acute Kidney Injury,Sepsis, Respiratory Failure Other Pertinent Diagnosis HD Current Diet Nepro 1.8 at 50 ml/hr Labs/Tests BUN 49 BG 264 Cr 0.7 Pertinent Medications Humalog Solumedrol Height 6 ft 4 in Weight 257.2 kg [place] Body Weight (kg) 91.81 BMI 69.0 Weight change and time frame No wt change noted Weight Status Morbidly Obese Subjective/Other Information F/U for diet advancement. Pt. failed swallow test per RESOLUTION AGENT. PO not recommended. TF restarted and is being tolerated Percent of energy/protein needs met: 100%/43% Burn Absent Trauma Absent GI Symptoms None Current % PO Negligible Minimum of two criteria No physical signs of malnutrition #1 Nutrition Diagnosis Inadequate oral intake Diagnosis Progress(for reassessment Continues documentation) Is patient on ventilator? No Is Patient Ambulatory and/or Out of Bed No REE-([facility]-confined to bed) 4342.284 Kcal/Kg value to use for calculation 8 Approximate Energy Requirements Using 2057 kcal/Kg Calculation Used for Recommendations Kcal/kg Additional Notes PRO needs: 73 - 91 g (0.8 - 1 g/kg IBW) Fluid needs: 1 ml/kcal Nutrition Intervention Change Diet Order: Continue TF Nutrition Support: Nepro 1.8 at 50 ml/hr Flush with 250ml q4h Kcal 2,160 Protein (gm) 97 Fluid (mL) 872 Goal #1 TF tolerance [ End ] Goal #2 Meet at least 75% kcal/PRO needs via TF Anticipated Discharge Needs: Unable to determine at this time Follow-Up By: 06/23/19 Additional Comments F/U TF tolerance
--- NOTE | 2019-06-17 15:48 | Consultation ---
History of Present Illness Consult date: 06/17/19 Requesting physician: CAROL RAGSDALE Chief complaint: trach/PEG eval - History of present illness History of present illness: 34yo M morbidly obese with multiple medical problems presented with complaints of difficulty breathing. During his hospital stay, patient experienced a cardiac arrest. We are asked to see the patient for respiratory failure and consideration of trach PEG placement. History obtained from chart and staff. Past History Past Medical History: other (unknown) Past Surgical History: No surgical history (nothing known) Social history: smoking Family history: no significant family history (unable to obtain, intubated) Medications and Allergies Allergies Allergy/AdvReac Type Severity Reaction Status Date / Time No Known Allergies Allergy Verified 05/01/19 20:27 Home Medications Medication Instructions Recorded Confirmed Last Taken Type No Known Home Medications [No 05/03/19 05/03/19 Unknown History Reported Home Medications] Active Meds: Active Medications Acetaminophen (Tylenol) 650 mg PO Q6H PRN PRN Reason: FOR TEMP >/=100.4 Last Admin: 06/17/19 09:44 Dose: 650 mg Documented by: Lipase/Protease/Amylase (Pancremannie Fletcher 10,500 Unit) 1 each FEEDTUBE PRN PRN PRN Reason: For Clogged Feeding Tube Clonidine HCl (Catapres-Tts Patch) 0.3 mg TD Lao [facility] Last Admin: 06/13/19 20:28 Dose: 0.3 mg Documented by: Dextrose (D50w (25gm) Vial) 50 gm IV Q30MIN PRN; Protocol PRN Reason: Hypoglycemia Enoxaparin Sodium (Enoxaparin) 40 mg SUB-Q QDAY@1000 [facility] Last Admin: 06/17/19 09:43 Dose: 40 mg Documented by: Famotidine (Pepcid) 20 mg PO BID [facility] Last Admin: 06/17/19 09:43 Dose: 20 mg Documented by: Hydrophilic Ointment (Vaseline Lip Therapy) 1 applic TP Q2HR PRN PRN Reason: Dry Lips Propofol (Diprivan 10 Mg/Ml) 1,000 mg in 100 mls @ 7.716 mls/hr IV TITR [facility]; Protocol Last Admin: 06/17/19 12:11 Dose: 20 mcg/kg/min, 30.864 mls/hr Documented by: Cefepime HCl (Cefepime/Ns 2 Gm/100 Ml) 2 gm in 100 mls @ 200 mls/hr IV Q8HR [facility]; Protocol Last Admin: 06/17/19 14:47 Dose: 200 mls/hr Documented by: Vancomycin HCl 2,000 mg/ (Sodium Chloride) 540 mls @ 250 mls/hr IV ONCE ONE Stop: 06/17/19 20:09 Fentanyl Citrate (Fentanyl Drip Premix) 2,000 mcg in 100 mls @ 12.86 mls/hr IV TITR [facility]; Protocol Insulin Glargine (Lantus) 15 units SUB-Q QHS [facility] Last Admin: 06/16/19 21:43 Dose: 15 units Documented by: Insulin Human Lispro (Humalog) 0 unit SUB-Q Q6HR [facility]; Protocol Last Admin: 06/17/19 12:25 Dose: 4 unit Documented by: Labetalol HCl (Labetalol) 10 mg IV Q4H PRN PRN Reason: BP >170/105; hold for HR <60 Last Admin: 06/16/19 19:47 Dose: 10 mg Documented by: Labetalol HCl (Labetalol) 200 mg PO Q8HR [facility] Last Admin: 06/17/19 14:46 Dose: 200 mg Documented by: Levetiracetam (Keppra) 750 mg PO BID [facility] Last Admin: 06/17/19 09:45 Dose: 750 mg Documented by: Methylprednisolone Sodium Succinate (Solu-Medrol) 20 mg IV Q8H [facility] Last Admin: 06/17/19 09:44 Dose: 20 mg Documented by: Minoxidil (Loniten) 2.5 mg PO BID [facility] Last Admin: 06/17/19 09:47 Dose: 2.5 mg Documented by: Multi-Ingred Cream/Lotion/Oil/Oint (Artificial Tears Ophth Oint) 1 applic OU Q4HR PRN PRN Reason: Dry Eye(s) Simple Syrup (Simple Syrup) 15 ml FEEDTUBE PRN PRN PRN Reason: Hypoglycemia Simple Syrup (Simple Syrup) 30 ml FEEDTUBE PRN PRN PRN Reason: Hypoglycemia Sodium Bicarbonate (Sodium Bicarbonate) 325 mg FEEDTUBE PRN PRN PRN Reason: For Clogged Feeding Tube Review of Systems ROS unobtainable: due to endotracheal tube Exam Vital Signs Temp Pulse Resp BP Pulse Ox 98.1 F 109 H 24 145/85 84 05/01/19 15:57 05/01/19 15:57 05/01/19 15:57 05/01/19 15:57 05/01/19 15:57 - General physical appearance Positive: no distress, no pain, obese, other (awake on vent. follows basic commands) - Eyes Positive: normal occular movement - ENT Positive: other (ETT in place) - Neck Positive: no masses, trachea midline, no venous distension, other (no incisions or infections seen) - Respiratory Positive: normal expansion, normal respiratory effort, clear to auscultation - Cardiovascular Rhythm: regular - Abdomen Abdomen: Present: soft, other (morbidly obese). Absent: tender, guarding, r igid, wound, surgical scars - Integumentary no rash, no growths, no abnormal pigmentation Results - Labs 06/18/19 05:25 06/18/19 04:25 Abnormal lab results 06/16/19 06/16/19 06/16/19 Range/Units 17:11 18:11 23:16 RBC (3.65-5.03) M/mm3 Hgb (11.8-15.2) gm/dl Hct (35.5-45.6) % RDW (13.2-15.2) % Plt Count (140-440) K/mm3 Fibrinogen (211-480) mg/dl ABG pH 7.289 L (7.350-7.450) pH Units ABG pO2 399.3 H (80.0-90.0) mm Hg ABG HCO3 30.1 H (20.0-26.0) mmol/L ABG O2 Saturation 99.6 H (95.0-99.0) % ABG Base Excess (-2.0-3.0) mmol/L ABG Hemoglobin 8.6 L (14.0-18.0) gm/dl Sodium (137-145) mmol/L Carbon Dioxide (22-30) mmol/L BUN (9-20) mg/dL Glucose (75-100) mg/dL POC Glucose 254 H 238 H (70-105) 06/17/19 06/17/19 06/17/19 Range/Units 05:30 05:53 09:50 RBC 2.79 L (3.65-5.03) M/mm3 Hgb 8.2 L (11.8-15.2) gm/dl Hct 24.6 L (35.5-45.6) % RDW 18.5 H (13.2-15.2) % Plt Count 95 L (140-440) K/mm3 Fibrinogen (211-480) mg/dl ABG pH (7.350-7.450) pH Units ABG pO2 (80.0-90.0) mm Hg ABG HCO3 (20.0-26.0) mmol/L ABG O2 Saturation (95.0-99.0) % ABG Base Excess (-2.0-3.0) mmol/L ABG Hemoglobin (14.0-18.0) gm/dl Sodium 147 H (137-145) mmol/L Carbon Dioxide 32 H (22-30) mmol/L BUN 60 H (9-20) mg/dL Glucose 205 H (75-100) mg/dL POC Glucose 211 H (70-105) 06/17/19 06/17/19 06/17/19 Range/Units 12:27 12:45 Unknown RBC (3.65-5.03) M/mm3 Hgb (11.8-15.2) gm/dl Hct (35.5-45.6) % RDW (13.2-15.2) % Plt Count (140-440) K/mm3 Fibrinogen 194 L (211-480) mg/dl ABG pH 7.564 H (7.350-7.450) pH Units ABG pO2 238.6 H (80.0-90.0) mm Hg ABG HCO3 33.6 H (20.0-26.0) mmol/L ABG O2 Saturation 99.4 H (95.0-99.0) % ABG Base Excess 10.6 H (-2.0-3.0) mmol/L ABG Hemoglobin 7.9 L (14.0-18.0) gm/dl Sodium (137-145) mmol/L Carbon Dioxide (22-30) mmol/L BUN (9-20) mg/dL Glucose (75-100) mg/dL POC Glucose 224 H (70-105) Diabetes panel 06/17/19 Range/Units 05:30 Sodium 147 H (137-145) mmol/L Potassium 3.8 (3.6-5.0) mmol/L Chloride 101.7 (98-107) mmol/L Carbon Dioxide 32 H (22-30) mmol/L BUN 60 H (9-20) mg/dL Creatinine 1.0 (0.8-1.5) mg/dL Glucose 205 H (75-100) mg/dL Calcium 9.6 (8.4-10.2) mg/dL Calcium panel 06/17/19 Range/Units 05:30 Calcium 9.6 (8.4-10.2) mg/dL Pituitary panel 06/17/19 Range/Units 05:30 Sodium 147 H (137-145) mmol/L Potassium 3.8 (3.6-5.0) mmol/L Chloride 101.7 (98-107) mmol/L Carbon Dioxide 32 H (22-30) mmol/L BUN 60 H (9-20) mg/dL Creatinine 1.0 (0.8-1.5) mg/dL Glucose 205 H (75-100) mg/dL Calcium 9.6 (8.4-10.2) mg/dL Adrenal panel 06/17/19 Range/Units 05:30 Sodium 147 H (137-145) mmol/L Potassium 3.8 (3.6-5.0) mmol/L Chloride 101.7 (98-107) mmol/L Carbon Dioxide 32 H (22-30) mmol/L BUN 60 H (9-20) mg/dL Creatinine 1.0 (0.8-1.5) mg/dL Glucose 205 H (75-100) mg/dL Calcium 9.6 (8.4-10.2) mg/dL - Imaging Chest x-ray: report reviewed, image reviewed Assessment and Plan - Patient Problems (1) Acute respiratory failure Current Visit: Yes Status: Acute Qualifiers: Respiratory failure complication: hypoxia Qualified Code(s): J96.01 - Acute respiratory failure with hypoxia Plan to address problem: Pt stable. Pt in need of trach/PEG. Procedure, risks, benefits discussed with mother. All questions answered. Telephone consent completed. Will work on scheduling in OR due to morbid obesity and anticipated challenges in the procedures. Please call with questions. time=45min
[2019-06-17] MEDS ORDERED: VANCOMYCIN 2,000 MG in SODIUM CHLORIDE 0.9% 500 ML 500 ML IV ONE (18:00)
--- NOTE | 2019-06-17 20:28 | Progress Note ---
Assessment and Plan Labs reviewed Imp: 1. Acute respiratory failure, hypoxia 2. A/C respiratory failure, hypercapnea 3. LANDON/OHS/Morbid obesity 4. CARLA 5. Pulm HTN 6. Sepsis -> ? Pneumonia, ? Meningitis 7. Seizures 8. SIRS 9. Thrombocytopenia Rec: 1. Propofol/Fentanyl 2. Consult surgery for trach/PEG as he cannot protect his airway; trach should be permanent and ultimately left uncapped at night to treat probable LANDON 3. Control BP with PO meds; hold diuretics today 4. Cont. TFs 5. Given fever and thrombocytopenia, concerned about bacteremia; obtain blood, urine, sputum cultures and start empiric Vanco/Cefipime pending results 6. Check HIT, fibrinogen; cont. Lovenox another 24 hours since he is high risk for DVT; labs in AM 7. Prognosis remains guarded to poor CCt 31 minutes No family present Subjective Date of service: 06/17/19 Principal diagnosis: HF; acute hypoxemic resp failure, SIRS, CARLA Interval history: Events noted -> O2 desaturation to the 20s, code called although did not lose pulse, improved after intubation. Alert, awake, appropriate currently on Propofol. On 16 of PEEP again. Active Medications Acetaminophen (Tylenol) 650 mg PO Q6H PRN PRN Reason: FOR TEMP >/=100.4 Last Admin: 06/17/19 09:44 Dose: 650 mg Documented by: Lipase/Protease/Amylase (German Fletcher 10,500 Unit) 1 each FEEDTUBE PRN PRN PRN Reason: For Clogged Feeding Tube Clonidine HCl (Catapres-Tts Patch) 0.3 mg TD Lao [facility] Last Admin: 06/13/19 20:28 Dose: 0.3 mg Documented by: Dextrose (D50w (25gm) Vial) 50 gm IV Q30MIN PRN; Protocol PRN Reason: Hypoglycemia Enoxaparin Sodium (Enoxaparin) 40 mg SUB-Q QDAY@1000 [facility] Last Admin: 06/17/19 09:43 Dose: 40 mg Documented by: Famotidine (Pepcid) 20 mg PO BID [facility] Last Admin: 06/17/19 09:43 Dose: 20 mg Documented by: Hydrophilic Ointment (Vaseline Lip Therapy) 1 applic TP Q2HR PRN PRN Reason: Dry Lips Propofol (Diprivan 10 Mg/Ml) 1,000 mg in 100 mls @ 7.716 mls/hr IV TITR [facility]; Protocol Last Admin: 06/17/19 18:34 Dose: 20 mcg/kg/min, 30.864 mls/hr Documented by: Cefepime HCl (Cefepime/Ns 2 Gm/100 Ml) 2 gm in 100 mls @ 200 mls/hr IV Q8HR [facility]; Protocol Last Admin: 06/17/19 14:47 Dose: 200 mls/hr Documented by: Fentanyl Citrate (Fentanyl Drip Premix) 2,000 mcg in 100 mls @ 12.86 mls/hr IV TITR [facility]; Protocol Insulin Glargine (Lantus) 15 units SUB-Q QHS [facility] Last Admin: 06/16/19 21:43 Dose: 15 units Documented by: Insulin Human Lispro (Humalog) 0 unit SUB-Q Q6HR [facility]; Protocol Last Admin: 06/17/19 18:39 Dose: 3 unit Documented by: Labetalol HCl (Labetalol) 10 mg IV Q4H PRN PRN Reason: BP >170/105; hold for HR <60 Last Admin: 06/16/19 19:47 Dose: 10 mg Documented by: Labetalol HCl (Labetalol) 200 mg PO Q8HR [facility] Last Admin: 06/17/19 14:46 Dose: 200 mg Documented by: Levetiracetam (Keppra) 750 mg PO BID [facility] Last Admin: 06/17/19 09:45 Dose: 750 mg Documented by: Methylprednisolone Sodium Succinate (Solu-Medrol) 20 mg IV Q8H [facility] Last Admin: 06/17/19 09:44 Dose: 20 mg Documented by: Minoxidil (Loniten) 2.5 mg PO BID [facility] Last Admin: 06/17/19 09:47 Dose: 2.5 mg Documented by: Multi-Ingred Cream/Lotion/Oil/Oint (Artificial Tears Ophth Oint) 1 applic OU Q4HR PRN PRN Reason: Dry Eye(s) Simple Syrup (Simple Syrup) 15 ml FEEDTUBE PRN PRN PRN Reason: Hypoglycemia Simple Syrup (Simple Syrup) 30 ml FEEDTUBE PRN PRN PRN Reason: Hypoglycemia Sodium Bicarbonate (Sodium Bicarbonate) 325 mg FEEDTUBE PRN PRN PRN Reason: For Clogged Feeding Tube Objective Vital Signs - 12hr 06/17/19 06/17/19 06/17/19 08:30 08:45 09:00 Temperature Pulse Rate 98 H 102 H 106 H Respiratory 24 24 11 L Rate Blood Pressure 115/42 124/54 134/60 O2 Sat by Pulse 98 99 96 Oximetry 06/17/19 06/17/19 06/17/19 09:15 09:29 09:30 Temperature Pulse Rate 106 H 109 H 107 H Respiratory 15 17 Rate Blood Pressure 131/46 130/51 130/51 O2 Sat by Pulse 96 100 97 Oximetry 06/17/19 06/17/19 06/17/19 09:45 10:00 10:15 Temperature Pulse Rate 110 H 108 H 107 H Respiratory 12 18 21 Rate Blood Pressure 121/59 129/52 114/43 O2 Sat by Pulse 97 98 98 Oximetry 06/17/19 06/17/19 06/17/19 10:30 10:45 11:00 Temperature Pulse Rate 108 H 108 H 104 H Respiratory 21 14 17 Rate Blood Pressure 117/51 126/47 129/44 O2 Sat by Pulse 97 98 97 Oximetry 06/17/19 06/17/19 06/17/19 11:15 11:30 11:45 Temperature Pulse Rate 106 H 106 H 102 H Respiratory 14 16 17 Rate Blood Pressure 114/52 131/47 138/53 O2 Sat by Pulse 97 98 97 Oximetry 06/17/19 06/17/19 06/17/19 12:00 12:15 12:16 Temperature 102.0 F H Pulse Rate 103 H 104 H 104 H Respiratory 16 25 H Rate Blood Pressure 127/47 130/58 127/47 O2 Sat by Pulse 97 100 Oximetry 06/17/19 06/17/19 06/17/19 12:30 12:45 13:00 Temperature Pulse Rate 103 H 102 H 107 H Respiratory 24 12 17 Rate Blood Pressure 140/64 144/60 133/61 O2 Sat by Pulse 95 98 97 Oximetry 06/17/19 06/17/19 06/17/19 13:15 13:30 13:45 Temperature Pulse Rate 108 H 111 H 110 H Respiratory 26 H 19 22 Rate Blood Pressure 127/54 131/56 117/54 O2 Sat by Pulse 97 96 96 Oximetry 06/17/19 06/17/19 06/17/19 14:00 14:15 14:30 Temperature Pulse Rate 112 H 113 H 111 H Respiratory 23 18 20 Rate Blood Pressure 115/50 127/58 120/49 O2 Sat by Pulse 99 98 99 Oximetry 06/17/19 06/17/19 06/17/19 14:45 14:46 15:00 Temperature Pulse Rate 108 H 106 H 109 H Respiratory 26 H 17 Rate Blood Pressure 122/52 122/52 120/52 O2 Sat by Pulse 99 Oximetry 06/17/19 06/17/19 06/17/19 15:15 15:30 15:45 Temperature Pulse Rate 109 H 107 H 109 H Respiratory 21 21 17 Rate Blood Pressure 126/48 127/46 132/50 O2 Sat by Pulse Oximetry 06/17/19 06/17/19 06/17/19 16:00 16:15 16:30 Temperature 102.0 F H Pulse Rate 107 H 109 H 107 H Respiratory 15 15 19 Rate Blood Pressure 132/43 128/54 130/52 O2 Sat by Pulse Oximetry 06/17/19 06/17/19 06/17/19 16:45 17:00 17:15 Temperature Pulse Rate 107 H 105 H 99 H Respiratory 19 24 24 Rate Blood Pressure 110/54 126/51 107/38 O2 Sat by Pulse Oximetry 06/17/19 06/17/19 06/17/19 17:30 17:46 18:00 Temperature Pulse Rate 96 H 103 H 102 H Respiratory 24 11 L 17 Rate Blood Pressure 119/46 131/75 134/52 O2 Sat by Pulse 99 100 Oximetry 06/17/19 06/17/19 06/17/19 18:15 18:30 18:45 Temperature Pulse Rate 102 H 99 H 101 H Respiratory 12 16 13 Rate Blood Pressure 103/44 122/47 128/49 O2 Sat by Pulse Oximetry 06/17/19 06/17/19 06/17/19 18:55 19:00 19:15 Temperature Pulse Rate 101 H 101 H 101 H Respiratory 11 L 20 Rate Blood Pressure 128/49 104/41 O2 Sat by Pulse 100 Oximetry 06/17/19 06/17/19 06/17/19 19:30 19:45 19:50 Temperature 100.4 F H Pulse Rate 98 H 99 H Respiratory 24 18 Rate Blood Pressure 114/57 134/68 O2 Sat by Pulse Oximetry 06/17/19 06/17/19 20:00 20:15 Temperature 100.7 F H Pulse Rate 102 H Respiratory 18 Rate Blood Pressure 143/70 O2 Sat by Pulse Oximetry Constitutional: other (morbidly obese male, critically ill on vent) Eyes: non-icteric ENT: oropharynx moist Neck: other (extremely large in circumference) Effort: normal Ascultation: Bilateral: diminished breath sounds (secondary to body habitus) Cardiovascular: regular rate and rhythm (no mrg) Gastrointestinal: normoactive bowel sounds, soft, non-tender, other (obese) Integumentary: other (L hand is wrapped) Extremities: no cyanosis, pink and warm, other (1+ generalized edema) Neurologic: normal mental status, non-focal exam Psychiatric: mood appropriate, affect normal CBC and BMP: 06/17/19 09:50 06/17/19 05:30 ABG, PT/INR, D-dimer: ABG POC ABG pH 7.462 (7.35-7.45) H 06/05/19 03:52 ABG pH 7.564 pH Units (7.350-7.450) H 06/17/19 Unknown POC ABG pCO2 39.8 (35-45) 06/05/19 03:52 ABG pCO2 38.0 mm Hg 06/17/19 Unknown POC ABG pO2 86 (80-105) 06/05/19 03:52 ABG pO2 238.6 mm Hg (80.0-90.0) H 06/17/19 Unknown POC ABG HCO3 28.4 (22-26 mml/L) 06/05/19 03:52 POC ABG Total CO2 30 (23-27mmol/L) 06/05/19 03:52 POC ABG O2 Sat 97 06/05/19 03:52 ABG O2 Saturation 99.4 % (95.0-99.0) H 06/17/19 Unknown PT/INR, D-dimer PT 15.4 Sec. (12.2-14.9) H 05/01/19 Unknown INR 1.23 (0.87-1.13) H 05/01/19 Unknown Abnormal lab findings: Abnormal Labs 05/01/19 05/01/19 05/01/19 17:50 19:26 22:36 WBC RBC Hgb Hct MCV MCH MCHC RDW Plt Count Lymph % (Auto) [place] % (Auto) Eos % (Auto) Lymph # [place] # Eos # Seg Neutrophils % Seg Neuts % (Manual) Lymphocytes % (Manual) Monocytes % (Manual) Eosinophils % (Manual) Nucleated RBC % Seg Neutrophils # Seg Neutrophils # Man Lymphocytes # (Manual) Monocytes # (Manual) Eosinophils # (Manual) PT INR APTT Fibrinogen POC ABG pH 7.272 L 7.331 L ABG pH POC ABG pCO2 52.8 H POC ABG pO2 ABG pO2 ABG HCO3 ABG O2 Saturation ABG Base Excess ABG Hemoglobin Oxyhemoglobin Sodium 136 L Potassium 6.5 H* Chloride 97.2 L Carbon Dioxide BUN 60 H Creatinine Glucose 113 H POC Glucose Uric Acid Calcium Phosphorus Magnesium 2.40 H AST 139 H ALT 154 H Total Creatine Kinase CK-MB (CK-2) Troponin T NT-Pro-B Natriuret Pep Total Protein Albumin 3.8 L Triglycerides HDL Cholesterol Urine WBC (Auto) Urine Creatinine Urine Total Protein Vancomycin Trough 05/01/19 05/01/19 05/01/19 Unknown Unknown Unknown WBC 16.1 H RBC Hgb Hct MCV MCH MCHC RDW 17.2 H Plt Count Lymph % (Auto) [place] % (Auto) 9.6 H Eos % (Auto) Lymph # [place] # 1.5 H Eos # Seg Neutrophils % 73.0 H Seg Neuts % (Manual) Lymphocytes % (Manual) Monocytes % (Manual) Eosinophils % (Manual) Nucleated RBC % Seg Neutrophils # 11.7 H Seg Neutrophils # Man Lymphocytes # (Manual) Monocytes # (Manual) Eosinophils # (Manual) PT 15.4 H INR 1.23 H APTT 22.7 L Fibrinogen POC ABG pH ABG pH POC ABG pCO2 POC ABG pO2 ABG pO2 ABG HCO3 ABG O2 Saturation ABG Base Excess ABG Hemoglobin Oxyhemoglobin Sodium Potassium Chloride Carbon Dioxide BUN Creatinine Glucose POC Glucose Uric Acid Calcium Phosphorus Magnesium AST ALT Total Creatine Kinase CK-MB (CK-2) Troponin T NT-Pro-B Natriuret Pep 6831 H Total Protein Albumin Triglycerides HDL Cholesterol Urine WBC (Auto) Urine Creatinine Urine Total Protein Vancomycin Trough 05/01/19 05/02/19 05/02/19 Unknown 00:06 00:06 WBC RBC Hgb Hct MCV MCH MCHC RDW Plt Count Lymph % (Auto) [place] % (Auto) Eos % (Auto) Lymph # [place] # Eos # Seg Neutrophils % Seg Neuts % (Manual) Lymphocytes % (Manual) Monocytes % (Manual) Eosinophils % (Manual) Nucleated RBC % Seg Neutrophils # Seg Neutrophils # Man Lymphocytes # (Manual) Monocytes # (Manual) Eosinophils # (Manual) PT INR APTT Fibrinogen POC ABG pH ABG pH POC ABG pCO2 POC ABG pO2 ABG pO2 ABG HCO3 ABG O2 Saturation ABG Base Excess ABG Hemoglobin Oxyhemoglobin Sodium Potassium Chloride Carbon Dioxide BUN Creatinine Glucose POC Glucose Uric Acid Calcium Phosphorus 4.90 H Magnesium AST ALT Total Creatine Kinase 226 H CK-MB (CK-2) 5.7 H Troponin T 0.044 H NT-Pro-B Natriuret Pep Total Protein Albumin Triglycerides 182 H HDL Cholesterol 18 L Urine WBC (Auto) Urine Creatinine Urine Total Protein Vancomycin Trough 05/02/19 05/02/19 05/02/19 02:08 04:40 04:41 WBC 17.6 H RBC Hgb Hct MCV MCH 27 L MCHC RDW 17.4 H Plt Count Lymph % (Auto) 10.2 L [place] % (Auto) 11.0 H Eos % (Auto) Lymph # [place] # 1.9 H Eos # Seg Neutrophils % 78.0 H Seg Neuts % (Manual) Lymphocytes % (Manual) Monocytes % (Manual) Eosinophils % (Manual) Nucleated RBC % Seg Neutrophils # 13.8 H Seg Neutrophils # Man Lymphocytes # (Manual) Monocytes # (Manual) Eosinophils # (Manual) PT INR APTT Fibrinogen POC ABG pH ABG pH POC ABG pCO2 46.8 H POC ABG pO2 63 L ABG pO2 ABG HCO3 ABG O2 Saturation ABG Base Excess ABG Hemoglobin Oxyhemoglobin Sodium Potassium Chloride 96.3 L Carbon Dioxide BUN 63 H Creatinine 1.7 H Glucose POC Glucose Uric Acid Calcium Phosphorus Magnesium AST ALT Total Creatine Kinase CK-MB (CK-2) Troponin T NT-Pro-B Natriuret Pep Total Protein Albumin Triglycerides HDL Cholesterol Urine WBC (Auto) Urine Creatinine Urine Total Protein Vancomycin Trough 05/02/19 05/02/19 05/02/19 04:41 04:41 16:05 WBC RBC Hgb Hct MCV MCH MCHC RDW Plt Count Lymph % (Auto) [place] % (Auto) Eos % (Auto) Lymph # [place] # Eos # Seg Neutrophils % Seg Neuts % (Manual) Lymphocytes % (Manual) Monocytes % (Manual) Eosinophils % (Manual) Nucleated RBC % Seg Neutrophils # Seg Neutrophils # Man Lymphocytes # (Manual) Monocytes # (Manual) Eosinophils # (Manual) PT INR APTT Fibrinogen POC ABG pH ABG pH POC ABG pCO2 POC ABG pO2 ABG pO2 66.6 L ABG HCO3 31.9 H ABG O2 Saturation 92.5 L ABG Base Excess 5.8 H ABG Hemoglobin 13.3 L Oxyhemoglobin 90.6 L Sodium Potassium Chloride 97.2 L Carbon Dioxide BUN 61 H Creatinine 1.8 H Glucose POC Glucose Uric Acid Calcium Phosphorus Magnesium AST ALT Total Creatine Kinase CK-MB (CK-2) 5.2 H Troponin T 0.067 H D NT-Pro-B Natriuret Pep Total Protein Albumin Triglycerides HDL Cholesterol Urine WBC (Auto) Urine Creatinine Urine Total Protein Vancomycin Trough 05/02/19 05/03/19 05/03/19 20:39 04:35 05:05 WBC 11.8 H RBC Hgb Hct MCV MCH 27 L MCHC 31 L RDW 17.2 H Plt Count Lymph % (Auto) [place] % (Auto) Eos % (Auto) Lymph # [place] # Eos # Seg Neutrophils % Seg Neuts % (Manual) Lymphocytes % (Manual) Monocytes % (Manual) Eosinophils % (Manual) Nucleated RBC % Seg Neutrophils # Seg Neutrophils # Man Lymphocytes # (Manual) Monocytes # (Manual) Eosinophils # (Manual) PT INR APTT Fibrinogen POC ABG pH ABG pH POC ABG pCO2 53.6 H 54.0 H POC ABG pO2 55 L 63 L ABG pO2 ABG HCO3 ABG O2 Saturation ABG Base Excess ABG Hemoglobin Oxyhemoglobin Sodium Potassium Chloride Carbon Dioxide BUN Creatinine Glucose POC Glucose Uric Acid Calcium Phosphorus Magnesium AST ALT Total Creatine Kinase CK-MB (CK-2) Troponin T NT-Pro-B Natriuret Pep Total Protein Albumin Triglycerides HDL Cholesterol Urine WBC (Auto) Urine Creatinine Urine Total Protein Vancomycin Trough 05/03/19 05/03/19 05/03/19 05:05 10:55 16:48 WBC RBC Hgb Hct MCV MCH MCHC RDW Plt Count Lymph % (Auto) [place] % (Auto) Eos % (Auto) Lymph # [place] # Eos # Seg Neutrophils % Seg Neuts % (Manual) Lymphocytes % (Manual) Monocytes % (Manual) Eosinophils % (Manual) Nucleated RBC % Seg Neutrophils # Seg Neutrophils # Man Lymphocytes # (Manual) Monocytes # (Manual) Eosinophils # (Manual) PT INR APTT Fibrinogen POC ABG pH 7.604 H ABG pH POC ABG pCO2 POC ABG pO2 58 L ABG pO2 ABG HCO3 ABG O2 Saturation ABG Base Excess ABG Hemoglobin Oxyhemoglobin Sodium Potassium Chloride Carbon Dioxide BUN 52 H Creatinine 1.9 H Glucose 103 H POC Glucose Uric Acid Calcium Phosphorus Magnesium AST ALT Total Creatine Kinase CK-MB (CK-2) Troponin T NT-Pro-B Natriuret Pep Total Protein Albumin Triglycerides HDL Cholesterol Urine WBC (Auto) 33.0 H Urine Creatinine Urine Total Protein Vancomycin Trough 05/04/19 05/04/19 05/04/19 04:49 06:50 06:50 WBC 16.0 H RBC Hgb Hct MCV MCH 27 L MCHC 31 L RDW 17.8 H Plt Count Lymph % (Auto) [place] % (Auto) Eos % (Auto) Lymph # [place] # Eos # Seg Neutrophils % Seg Neuts % (Manual) Lymphocytes % (Manual) Monocytes % (Manual) Eosinophils % (Manual) Nucleated RBC % Seg Neutrophils # Seg Neutrophils # Man Lymphocytes # (Manual) Monocytes # (Manual) Eosinophils # (Manual) PT INR APTT Fibrinogen POC ABG pH 7.273 L ABG pH POC ABG pCO2 POC ABG pO2 ABG pO2 ABG HCO3 ABG O2 Saturation ABG Base Excess ABG Hemoglobin Oxyhemoglobin Sodium 148 H Potassium 5.5 H Chloride Carbon Dioxide BUN 53 H Creatinine 3.3 H D Glucose 106 H POC Glucose Uric Acid Calcium 8.3 L Phosphorus Magnesium AST ALT Total Creatine Kinase CK-MB (CK-2) Troponin T NT-Pro-B Natriuret Pep Total Protein Albumin Triglycerides HDL Cholesterol Urine WBC (Auto) Urine Creatinine Urine Total Protein Vancomycin Trough 05/05/19 05/05/19 05/05/19 00:05 04:30 05:00 WBC RBC Hgb Hct MCV MCH MCHC RDW Plt Count Lymph % (Auto) [place] % (Auto) Eos % (Auto) Lymph # [place] # Eos # Seg Neutrophils % Seg Neuts % (Manual) Lymphocytes % (Manual) Monocytes % (Manual) Eosinophils % (Manual) Nucleated RBC % Seg Neutrophils # Seg Neutrophils # Man Lymphocytes # (Manual) Monocytes # (Manual) Eosinophils # (Manual) PT INR APTT Fibrinogen POC ABG pH 7.225 L ABG pH POC ABG pCO2 > 70 H POC ABG pO2 ABG pO2 ABG HCO3 ABG O2 Saturation ABG Base Excess ABG Hemoglobin Oxyhemoglobin Sodium 151 H Potassium 5.1 H Chloride Carbon Dioxide BUN 64 H Creatinine 3.5 H Glucose 117 H POC Glucose 141 H Uric Acid Calcium 7.5 L Phosphorus Magnesium AST 93 H ALT 65 H Total Creatine Kinase CK-MB (CK-2) Troponin T NT-Pro-B Natriuret Pep Total Protein Albumin 2.9 L Triglycerides HDL Cholesterol Urine WBC (Auto) Urine Creatinine Urine Total Protein Vancomycin Trough 05/05/19 05/05/19 05/05/19 05:00 12:02 17:46 WBC 12.0 H RBC Hgb 11.3 L Hct MCV MCH 27 L MCHC 30 L RDW 18.4 H Plt Count Lymph % (Auto) 7.9 L [place] % (Auto) 10.2 H Eos % (Auto) Lymph # 1.0 L [place] # 1.2 H Eos # Seg Neutrophils % 80.8 H Seg Neuts % (Manual) Lymphocytes % (Manual) Monocytes % (Manual) Eosinophils % (Manual) Nucleated RBC % Seg Neutrophils # 9.7 H Seg Neutrophils # Man Lymphocytes # (Manual) Monocytes # (Manual) Eosinophils # (Manual) PT INR APTT Fibrinogen POC ABG pH ABG pH POC ABG pCO2 POC ABG pO2 ABG pO2 ABG HCO3 ABG O2 Saturation ABG Base Excess ABG Hemoglobin Oxyhemoglobin Sodium Potassium Chloride Carbon Dioxide BUN Creatinine Glucose POC Glucose 125 H 112 H Uric Acid Calcium Phosphorus Magnesium AST ALT Total Creatine Kinase CK-MB (CK-2) Troponin T NT-Pro-B Natriuret Pep Total Protein Albumin Triglycerides HDL Cholesterol Urine WBC (Auto) Urine Creatinine Urine Total Protein Vancomycin Trough 05/05/19 05/06/19 05/06/19 23:42 03:58 04:45 WBC 11.4 H RBC Hgb 10.7 L Hct 34.2 L MCV MCH 27 L MCHC 31 L RDW 16.9 H Plt Count Lymph % (Auto) [place] % (Auto) Eos % (Auto) Lymph # [place] # Eos # Seg Neutrophils % Seg Neuts % (Manual) Lymphocytes % (Manual) Monocytes % (Manual) Eosinophils % (Manual) Nucleated RBC % Seg Neutrophils # Seg Neutrophils # Man Lymphocytes # (Manual) Monocytes # (Manual) Eosinophils # (Manual) PT INR APTT Fibrinogen POC ABG pH ABG pH POC ABG pCO2 62.4 H POC ABG pO2 111 H ABG pO2 ABG HCO3 ABG O2 Saturation ABG Base Excess ABG Hemoglobin Oxyhemoglobin Sodium Potassium Chloride Carbon Dioxide BUN Creatinine Glucose POC Glucose 128 H Uric Acid Calcium Phosphorus Magnesium AST ALT Total Creatine Kinase CK-MB (CK-2) Troponin T NT-Pro-B Natriuret Pep Total Protein Albumin Triglycerides HDL Cholesterol Urine WBC (Auto) Urine Creatinine Urine Total Protein Vancomycin Trough 05/06/19 05/06/19 05/06/19 04:45 05:33 12:30 WBC RBC Hgb Hct MCV MCH MCHC RDW Plt Count Lymph % (Auto) [place] % (Auto) Eos % (Auto) Lymph # [place] # Eos # Seg Neutrophils % Seg Neuts % (Manual) Lymphocytes % (Manual) Monocytes % (Manual) Eosinophils % (Manual) Nucleated RBC % Seg Neutrophils # Seg Neutrophils # Man Lymphocytes # (Manual) Monocytes # (Manual) Eosinophils # (Manual) PT INR APTT Fibrinogen POC ABG pH ABG pH POC ABG pCO2 POC ABG pO2 ABG pO2 ABG HCO3 ABG O2 Saturation ABG Base Excess ABG Hemoglobin Oxyhemoglobin Sodium 149 H Potassium Chloride Carbon Dioxide 31 H BUN 67 H Creatinine 3.2 H Glucose 125 H POC Glucose 117 H 116 H Uric Acid Calcium 7.5 L Phosphorus Magnesium AST ALT Total Creatine Kinase CK-MB (CK-2) Troponin T NT-Pro-B Natriuret Pep Total Protein Albumin Triglycerides HDL Cholesterol Urine WBC (Auto) Urine Creatinine Urine Total Protein Vancomycin Trough 05/06/19 05/06/19 05/07/19 18:34 23:16 05:22 WBC RBC Hgb Hct MCV MCH MCHC RDW Plt Count Lymph % (Auto) [place] % (Auto) Eos % (Auto) Lymph # [place] # Eos # Seg Neutrophils % Seg Neuts % (Manual) Lymphocytes % (Manual) Monocytes % (Manual) Eosinophils % (Manual) Nucleated RBC % Seg Neutrophils # Seg Neutrophils # Man Lymphocytes # (Manual) Monocytes # (Manual) Eosinophils # (Manual) PT INR APTT Fibrinogen POC ABG pH ABG pH POC ABG pCO2 POC ABG pO2 ABG pO2 ABG HCO3 ABG O2 Saturation ABG Base Excess ABG Hemoglobin Oxyhemoglobin Sodium Potassium Chloride Carbon Dioxide BUN Creatinine Glucose POC Glucose 128 H 143 H 166 H Uric Acid Calcium Phosphorus Magnesium AST ALT Total Creatine Kinase CK-MB (CK-2) Troponin T NT-Pro-B Natriuret Pep Total Protein Albumin Triglycerides HDL Cholesterol Urine WBC (Auto) Urine Creatinine Urine Total Protein Vancomycin Trough 05/07/19 05/07/19 05/07/19 06:33 07:03 09:35 WBC RBC Hgb Hct MCV MCH MCHC RDW Plt Count Lymph % (Auto) [place] % (Auto) Eos % (Auto) Lymph # [place] # Eos # Seg Neutrophils % Seg Neuts % (Manual) Lymphocytes % (Manual) Monocytes % (Manual) Eosinophils % (Manual) Nucleated RBC % Seg Neutrophils # Seg Neutrophils # Man Lymphocytes # (Manual) Monocytes # (Manual) Eosinophils # (Manual) PT INR APTT Fibrinogen POC ABG pH 7.263 L 7.288 L ABG pH POC ABG pCO2 POC ABG pO2 51 L 56 L ABG pO2 ABG HCO3 ABG O2 Saturation ABG Base Excess ABG Hemoglobin Oxyhemoglobin Sodium Potassium Chloride Carbon Dioxide BUN 76 H Creatinine 3.2 H Glucose 147 H POC Glucose Uric Acid Calcium 7.9 L Phosphorus Magnesium AST ALT Total Creatine Kinase CK-MB (CK-2) Troponin T NT-Pro-B Natriuret Pep Total Protein Albumin Triglycerides HDL Cholesterol Urine WBC (Auto) Urine Creatinine Urine Total Protein Vancomycin Trough 05/07/19 05/07/19 05/07/19 09:35 12:17 13:45 WBC 13.4 H RBC Hgb 11.6 L Hct MCV MCH 27 L MCHC 31 L RDW 17.5 H Plt Count Lymph % (Auto) [place] % (Auto) Eos % (Auto) Lymph # [place] # Eos # Seg Neutrophils % Seg Neuts % (Manual) Lymphocytes % (Manual) Monocytes % (Manual) Eosinophils % (Manual) Nucleated RBC % Seg Neutrophils # Seg Neutrophils # Man Lymphocytes # (Manual) Monocytes # (Manual) Eosinophils # (Manual) PT INR APTT Fibrinogen POC ABG pH ABG pH POC ABG pCO2 POC ABG pO2 ABG pO2 ABG HCO3 ABG O2 Saturation ABG Base Excess ABG Hemoglobin Oxyhemoglobin Sodium Potassium Chloride Carbon Dioxide BUN Creatinine Glucose POC Glucose 130 H Uric Acid 18.0 H Calcium Phosphorus Magnesium AST ALT Total Creatine Kinase CK-MB (CK-2) Troponin T NT-Pro-B Natriuret Pep Total Protein Albumin Triglycerides HDL Cholesterol Urine WBC (Auto) Urine Creatinine Urine Total Protein Vancomycin Trough 05/07/19 05/07/19 05/08/19 17:39 22:40 05:06 WBC RBC Hgb Hct MCV MCH MCHC RDW Plt Count Lymph % (Auto) [place] % (Auto) Eos % (Auto) Lymph # [place] # Eos # Seg Neutrophils % Seg Neuts % (Manual) Lymphocytes % (Manual) Monocytes % (Manual) Eosinophils % (Manual) Nucleated RBC % Seg Neutrophils # Seg Neutrophils # Man Lymphocytes # (Manual) Monocytes # (Manual) Eosinophils # (Manual) PT INR APTT Fibrinogen POC ABG pH ABG pH POC ABG pCO2 POC ABG pO2 ABG pO2 ABG HCO3 ABG O2 Saturation ABG Base Excess ABG Hemoglobin Oxyhemoglobin Sodium Potassium Chloride Carbon Dioxide BUN Creatinine Glucose POC Glucose 116 H 148 H Uric Acid Calcium Phosphorus Magnesium AST ALT Total Creatine Kinase CK-MB (CK-2) Troponin T NT-Pro-B Natriuret Pep Total Protein Albumin Triglycerides HDL Cholesterol Urine WBC (Auto) Urine Creatinine 292.8 H Urine Total Protein 269 H Vancomycin Trough 05/08/19 05/08/19 05/08/19 05:32 11:28 13:48 WBC RBC Hgb Hct MCV MCH MCHC RDW Plt Count Lymph % (Auto) [place] % (Auto) Eos % (Auto) Lymph # [place] # Eos # Seg Neutrophils % Seg Neuts % (Manual) Lymphocytes % (Manual) Monocytes % (Manual) Eosinophils % (Manual) Nucleated RBC % Seg Neutrophils # Seg Neutrophils # Man Lymphocytes # (Manual) Monocytes # (Manual) Eosinophils # (Manual) PT INR APTT Fibrinogen POC ABG pH ABG pH POC ABG pCO2 45.4 H POC ABG pO2 64 L ABG pO2 ABG HCO3 ABG O2 Saturation ABG Base Excess ABG Hemoglobin Oxyhemoglobin Sodium Potassium Chloride Carbon Dioxide BUN 73 H Creatinine 2.7 H Glucose 127 H POC Glucose 107 H Uric Acid Calcium 7.6 L Phosphorus Magnesium AST ALT Total Creatine Kinase CK-MB (CK-2) Troponin T NT-Pro-B Natriuret Pep Total Protein Albumin Triglycerides HDL Cholesterol Urine WBC (Auto) Urine Creatinine Urine Total Protein Vancomycin Trough 05/08/19 05/09/19 05/09/19 17:48 04:50 04:53 WBC RBC 3.07 L Hgb 8.5 L D Hct 29.3 L D MCV 96 H MCH MCHC 29 L RDW 18.1 H Plt Count Lymph % (Auto) [place] % (Auto) Eos % (Auto) Lymph # [place] # Eos # Seg Neutrophils % Seg Neuts % (Manual) Lymphocytes % (Manual) Monocytes % (Manual) Eosinophils % (Manual) Nucleated RBC % Seg Neutrophils # Seg Neutrophils # Man Lymphocytes # (Manual) Monocytes # (Manual) Eosinophils # (Manual) PT INR APTT Fibrinogen POC ABG pH 7.316 L ABG pH POC ABG pCO2 66.0 H POC ABG pO2 69 L ABG pO2 ABG HCO3 ABG O2 Saturation ABG Base Excess ABG Hemoglobin Oxyhemoglobin Sodium Potassium Chloride Carbon Dioxide BUN Creatinine Glucose POC Glucose 155 H Uric Acid Calcium Phosphorus Magnesium AST ALT Total Creatine Kinase CK-MB (CK-2) Troponin T NT-Pro-B Natriuret Pep Total Protein Albumin Triglycerides HDL Cholesterol Urine WBC (Auto) Urine Creatinine Urine Total Protein Vancomycin Trough 05/09/19 05/09/19 05/09/19 05:46 07:24 12:10 WBC RBC Hgb Hct MCV MCH MCHC RDW Plt Count Lymph % (Auto) [place] % (Auto) Eos % (Auto) Lymph # [place] # Eos # Seg Neutrophils % Seg Neuts % (Manual) Lymphocytes % (Manual) Monocytes % (Manual) Eosinophils % (Manual) Nucleated RBC % Seg Neutrophils # Seg Neutrophils # Man Lymphocytes # (Manual) Monocytes # (Manual) Eosinophils # (Manual) PT INR APTT Fibrinogen POC ABG pH ABG pH POC ABG pCO2 POC ABG pO2 ABG pO2 ABG HCO3 ABG O2 Saturation ABG Base Excess ABG Hemoglobin Oxyhemoglobin Sodium Potassium Chloride Carbon Dioxide BUN 73 H Creatinine 2.4 H Glucose 153 H POC Glucose 123 H 148 H Uric Acid Calcium 8.2 L Phosphorus Magnesium AST 45 H ALT Total Creatine Kinase CK-MB (CK-2) Troponin T NT-Pro-B Natriuret Pep Total Protein 6.0 L Albumin 1.9 L Triglycerides HDL Cholesterol Urine WBC (Auto) Urine Creatinine Urine Total Protein Vancomycin Trough 05/09/19 05/09/19 05/10/19 18:23 23:26 04:52 WBC RBC Hgb Hct MCV MCH MCHC RDW Plt Count Lymph % (Auto) [place] % (Auto) Eos % (Auto) Lymph # [place] # Eos # Seg Neutrophils % Seg Neuts % (Manual) Lymphocytes % (Manual) Monocytes % (Manual) Eosinophils % (Manual) Nucleated RBC % Seg Neutrophils # Seg Neutrophils # Man Lymphocytes # (Manual) Monocytes # (Manual) Eosinophils # (Manual) PT INR APTT Fibrinogen POC ABG pH 7.305 L ABG pH POC ABG pCO2 62.6 H POC ABG pO2 ABG pO2 ABG HCO3 ABG O2 Saturation ABG Base Excess ABG Hemoglobin Oxyhemoglobin Sodium Potassium Chloride Carbon Dioxide BUN Creatinine Glucose POC Glucose 147 H 121 H Uric Acid Calcium Phosphorus Magnesium AST ALT Total Creatine Kinase CK-MB (CK-2) Troponin T NT-Pro-B Natriuret Pep Total Protein Albumin Triglycerides HDL Cholesterol Urine WBC (Auto) Urine Creatinine Urine Total Protein Vancomycin Trough 05/10/19 05/10/19 05/10/19 05:00 05:00 05:50 WBC RBC Hgb 10.3 L Hct 33.7 L MCV MCH 27 L MCHC 31 L RDW 17.0 H Plt Count Lymph % (Auto) [place] % (Auto) Eos % (Auto) Lymph # [place] # Eos # Seg Neutrophils % Seg Neuts % (Manual) Lymphocytes % (Manual) Monocytes % (Manual) Eosinophils % (Manual) Nucleated RBC % Seg Neutrophils # Seg Neutrophils # Man Lymphocytes # (Manual) Monocytes # (Manual) Eosinophils # (Manual) PT INR APTT Fibrinogen POC ABG pH ABG pH POC ABG pCO2 POC ABG pO2 ABG pO2 ABG HCO3 ABG O2 Saturation ABG Base Excess ABG Hemoglobin Oxyhemoglobin Sodium 147 H Potassium Chloride Carbon Dioxide BUN 70 H Creatinine 2.6 H Glucose 155 H POC Glucose 158 H Uric Acid Calcium 8.2 L Phosphorus Magnesium AST ALT Total Creatine Kinase CK-MB (CK-2) Troponin T NT-Pro-B Natriuret Pep Total Protein 6.1 L Albumin 2.5 L Triglycerides HDL Cholesterol Urine WBC (Auto) Urine Creatinine Urine Total Protein Vancomycin Trough 05/10/19 05/11/19 05/11/19 13:14 07:26 11:40 WBC RBC Hgb Hct MCV MCH MCHC RDW Plt Count Lymph % (Auto) [place] % (Auto) Eos % (Auto) Lymph # [place] # Eos # Seg Neutrophils % Seg Neuts % (Manual) Lymphocytes % (Manual) Monocytes % (Manual) Eosinophils % (Manual) Nucleated RBC % Seg Neutrophils # Seg Neutrophils # Man Lymphocytes # (Manual) Monocytes # (Manual) Eosinophils # (Manual) PT INR APTT Fibrinogen POC ABG pH ABG pH POC ABG pCO2 48.0 H POC ABG pO2 58 L ABG pO2 ABG HCO3 ABG O2 Saturation ABG Base Excess ABG Hemoglobin Oxyhemoglobin Sodium 147 H Potassium Chloride 107.2 H Carbon Dioxide BUN 67 H Creatinine 2.6 H Glucose 121 H POC Glucose 159 H Uric Acid Calcium Phosphorus Magnesium AST ALT Total Creatine Kinase CK-MB (CK-2) Troponin T NT-Pro-B Natriuret Pep Total Protein Albumin Triglycerides HDL Cholesterol Urine WBC (Auto) Urine Creatinine Urine Total Protein Vancomycin Trough 05/11/19 05/11/19 05/12/19 18:13 23:46 04:40 WBC RBC Hgb Hct MCV MCH MCHC RDW Plt Count Lymph % (Auto) [place] % (Auto) Eos % (Auto) Lymph # [place] # Eos # Seg Neutrophils % Seg Neuts % (Manual) Lymphocytes % (Manual) Monocytes % (Manual) Eosinophils % (Manual) Nucleated RBC % Seg Neutrophils # Seg Neutrophils # Man Lymphocytes # (Manual) Monocytes # (Manual) Eosinophils # (Manual) PT INR APTT Fibrinogen POC ABG pH ABG pH 7.264 L POC ABG pCO2 POC ABG pO2 ABG pO2 66.8 L ABG HCO3 31.0 H ABG O2 Saturation 92.0 L ABG Base Excess ABG Hemoglobin 10.3 L Oxyhemoglobin 90.1 L Sodium Potassium Chloride Carbon Dioxide BUN Creatinine Glucose POC Glucose 120 H 121 H Uric Acid Calcium Phosphorus Magnesium AST ALT Total Creatine Kinase CK-MB (CK-2) Troponin T NT-Pro-B Natriuret Pep Total Protein Albumin Triglycerides HDL Cholesterol Urine WBC (Auto) Urine Creatinine Urine Total Protein Vancomycin Trough 05/12/19 05/12/19 05/12/19 04:45 04:45 11:14 WBC RBC Hgb 10.2 L Hct 32.4 L MCV MCH MCHC 31 L RDW 17.2 H Plt Count Lymph % (Auto) [place] % (Auto) Eos % (Auto) Lymph # [place] # Eos # Seg Neutrophils % Seg Neuts % (Manual) Lymphocytes % (Manual) Monocytes % (Manual) Eosinophils % (Manual) Nucleated RBC % Seg Neutrophils # Seg Neutrophils # Man Lymphocytes # (Manual) Monocytes # (Manual) Eosinophils # (Manual) PT INR APTT Fibrinogen POC ABG pH 7.284 L ABG pH POC ABG pCO2 67.8 H POC ABG pO2 ABG pO2 ABG HCO3 ABG O2 Saturation ABG Base Excess ABG Hemoglobin Oxyhemoglobin Sodium Potassium Chloride Carbon Dioxide BUN 63 H Creatinine 2.4 H Glucose 110 H POC Glucose Uric Acid Calcium Phosphorus Magnesium AST ALT Total Creatine Kinase CK-MB (CK-2) Troponin T NT-Pro-B Natriuret Pep Total Protein Albumin Triglycerides HDL Cholesterol Urine WBC (Auto) Urine Creatinine Urine Total Protein Vancomycin Trough 05/12/19 05/12/19 05/13/19 11:44 23:11 04:30 WBC RBC Hgb Hct MCV MCH MCHC RDW Plt Count Lymph % (Auto) [place] % (Auto) Eos % (Auto) Lymph # [place] # Eos # Seg Neutrophils % Seg Neuts % (Manual) Lymphocytes % (Manual) Monocytes % (Manual) Eosinophils % (Manual) Nucleated RBC % Seg Neutrophils # Seg Neutrophils # Man Lymphocytes # (Manual) Monocytes # (Manual) Eosinophils # (Manual) PT INR APTT Fibrinogen POC ABG pH ABG pH 7.288 L POC ABG pCO2 POC ABG pO2 ABG pO2 109.7 H ABG HCO3 30.9 H ABG O2 Saturation ABG Base Excess 3.2 H ABG Hemoglobin 9.6 L Oxyhemoglobin Sodium Potassium Chloride Carbon Dioxide BUN Creatinine Glucose POC Glucose 126 H 147 H Uric Acid Calcium Phosphorus Magnesium AST ALT Total Creatine Kinase CK-MB (CK-2) Troponin T NT-Pro-B Natriuret Pep Total Protein Albumin Triglycerides HDL Cholesterol Urine WBC (Auto) Urine Creatinine Urine Total Protein Vancomycin Trough 05/13/19 05/13/19 05/14/19 06:27 11:58 04:00 WBC RBC 3.16 L Hgb 9.3 L Hct 27.9 L MCV MCH MCHC RDW 17.1 H Plt Count Lymph % (Auto) [place] % (Auto) Eos % (Auto) Lymph # [place] # Eos # Seg Neutrophils % Seg Neuts % (Manual) Lymphocytes % (Manual) Monocytes % (Manual) Eosinophils % (Manual) Nucleated RBC % Seg Neutrophils # Seg Neutrophils # Man Lymphocytes # (Manual) Monocytes # (Manual) Eosinophils # (Manual) PT INR APTT Fibrinogen POC ABG pH ABG pH POC ABG pCO2 POC ABG pO2 ABG pO2 ABG HCO3 ABG O2 Saturation ABG Base Excess ABG Hemoglobin Oxyhemoglobin Sodium Potassium Chloride Carbon Dioxide BUN Creatinine Glucose POC Glucose 113 H 130 H Uric Acid Calcium Phosphorus Magnesium AST ALT Total Creatine Kinase CK-MB (CK-2) Troponin T NT-Pro-B Natriuret Pep Total Protein Albumin Triglycerides HDL Cholesterol Urine WBC (Auto) Urine Creatinine Urine Total Protein Vancomycin Trough 05/14/19 05/14/19 05/14/19 04:00 04:34 05:32 WBC RBC Hgb Hct MCV MCH MCHC RDW Plt Count Lymph % (Auto) [place] % (Auto) Eos % (Auto) Lymph # [place] # Eos # Seg Neutrophils % Seg Neuts % (Manual) Lymphocytes % (Manual) Monocytes % (Manual) Eosinophils % (Manual) Nucleated RBC % Seg Neutrophils # Seg Neutrophils # Man Lymphocytes # (Manual) Monocytes # (Manual) Eosinophils # (Manual) PT INR APTT Fibrinogen POC ABG pH 7.328 L ABG pH POC ABG pCO2 61.7 H POC ABG pO2 ABG pO2 ABG HCO3 ABG O2 Saturation ABG Base Excess ABG Hemoglobin Oxyhemoglobin Sodium 135 L D Potassium Chloride Carbon Dioxide BUN 57 H Creatinine 2.2 H Glucose 115 H POC Glucose 115 H Uric Acid Calcium 8.1 L Phosphorus Magnesium AST ALT Total Creatine Kinase CK-MB (CK-2) Troponin T NT-Pro-B Natriuret Pep Total Protein Albumin Triglycerides HDL Cholesterol Urine WBC (Auto) Urine Creatinine Urine Total Protein Vancomycin Trough 05/14/19 05/15/19 05/15/19 12:11 05:10 05:24 WBC RBC Hgb Hct MCV MCH MCHC RDW Plt Count Lymph % (Auto) [place] % (Auto) Eos % (Auto) Lymph # [place] # Eos # Seg Neutrophils % Seg Neuts % (Manual) Lymphocytes % (Manual) Monocytes % (Manual) Eosinophils % (Manual) Nucleated RBC % Seg Neutrophils # Seg Neutrophils # Man Lymphocytes # (Manual) Monocytes # (Manual) Eosinophils # (Manual) PT INR APTT Fibrinogen POC ABG pH ABG pH 7.342 L POC ABG pCO2 POC ABG pO2 ABG pO2 79.1 L ABG HCO3 28.2 H ABG O2 Saturation ABG Base Excess ABG Hemoglobin 7.0 L Oxyhemoglobin 94.4 L Sodium Potassium Chloride Carbon Dioxide BUN Creatinine Glucose POC Glucose 110 H 116 H Uric Acid Calcium Phosphorus Magnesium AST ALT Total Creatine Kinase CK-MB (CK-2) Troponin T NT-Pro-B Natriuret Pep Total Protein Albumin Triglycerides HDL Cholesterol Urine WBC (Auto) Urine Creatinine Urine Total Protein Vancomycin Trough 05/15/19 05/15/19 05/16/19 09:00 18:12 04:50 WBC RBC Hgb Hct MCV MCH MCHC RDW Plt Count Lymph % (Auto) [place] % (Auto) Eos % (Auto) Lymph # [place] # Eos # Seg Neutrophils % Seg Neuts % (Manual) Lymphocytes % (Manual) Monocytes % (Manual) Eosinophils % (Manual) Nucleated RBC % Seg Neutrophils # Seg Neutrophils # Man Lymphocytes # (Manual) Monocytes # (Manual) Eosinophils # (Manual) PT INR APTT Fibrinogen POC ABG pH ABG pH 7.250 L POC ABG pCO2 POC ABG pO2 ABG pO2 76.4 L ABG HCO3 ABG O2 Saturation 94.6 L ABG Base Excess -3.1 L ABG Hemoglobin 9.7 L Oxyhemoglobin 92.4 L Sodium Potassium Chloride Carbon Dioxide BUN Creatinine Glucose POC Glucose 110 H Uric Acid Calcium Phosphorus Magnesium AST ALT Total Creatine Kinase CK-MB (CK-2) Troponin T NT-Pro-B Natriuret Pep Total Protein Albumin Triglycerides HDL Cholesterol Urine WBC (Auto) Urine Creatinine Urine Total Protein Vancomycin Trough 20.5 H 05/16/19 05/16/19 05/17/19 05:50 05:50 04:20 WBC RBC 3.36 L 3.44 L Hgb 9.4 L 9.3 L Hct 29.1 L 29.7 L MCV MCH 27 L MCHC 31 L RDW 17.6 H 17.6 H Plt Count Lymph % (Auto) [place] % (Auto) Eos % (Auto) Lymph # [place] # Eos # Seg Neutrophils % Seg Neuts % (Manual) 77.0 H Lymphocytes % (Manual) 5.0 L Monocytes % (Manual) Eosinophils % (Manual) 10.0 H Nucleated RBC % Seg Neutrophils # Seg Neutrophils # Man Lymphocytes # (Manual) 0.5 L Monocytes # (Manual) Eosinophils # (Manual) 0.9 H PT INR APTT Fibrinogen POC ABG pH ABG pH POC ABG pCO2 POC ABG pO2 ABG pO2 ABG HCO3 ABG O2 Saturation ABG Base Excess ABG Hemoglobin Oxyhemoglobin Sodium Potassium Chloride Carbon Dioxide BUN 83 H Creatinine 4.4 H D Glucose 118 H POC Glucose Uric Acid Calcium Phosphorus Magnesium AST ALT Total Creatine Kinase CK-MB (CK-2) Troponin T NT-Pro-B Natriuret Pep Total Protein Albumin Triglycerides HDL Cholesterol Urine WBC (Auto) Urine Creatinine Urine Total Protein Vancomycin Trough 05/17/19 05/17/19 05/18/19 04:30 Unknown 01:50 WBC RBC 3.49 L Hgb 9.4 L Hct 30.0 L MCV MCH 27 L MCHC 31 L RDW 17.8 H Plt Count Lymph % (Auto) 7.9 L [place] % (Auto) 15.4 H Eos % (Auto) 6.3 H Lymph # 0.7 L [place] # 1.4 H Eos # 0.6 H Seg Neutrophils % 70.2 H Seg Neuts % (Manual) Lymphocytes % (Manual) Monocytes % (Manual) Eosinophils % (Manual) Nucleated RBC % Seg Neutrophils # Seg Neutrophils # Man Lymphocytes # (Manual) Monocytes # (Manual) Eosinophils # (Manual) PT INR APTT Fibrinogen POC ABG pH ABG pH 7.272 L POC ABG pCO2 POC ABG pO2 ABG pO2 75.7 L ABG HCO3 ABG O2 Saturation 93.8 L ABG Base Excess -3.0 L ABG Hemoglobin 7.8 L Oxyhemoglobin 91.6 L Sodium Potassium 5.2 H Chloride Carbon Dioxide BUN 96 H Creatinine 5.7 H Glucose 112 H POC Glucose Uric Acid Calcium Phosphorus Magnesium AST ALT Total Creatine Kinase CK-MB (CK-2) Troponin T NT-Pro-B Natriuret Pep Total Protein Albumin Triglycerides 173 H HDL Cholesterol Urine WBC (Auto) Urine Creatinine Urine Total Protein Vancomycin Trough 05/18/19 05/18/19 05/18/19 01:50 04:41 05:24 WBC RBC Hgb Hct MCV MCH MCHC RDW Plt Count Lymph % (Auto) [place] % (Auto) Eos % (Auto) Lymph # [place] # Eos # Seg Neutrophils % Seg Neuts % (Manual) Lymphocytes % (Manual) Monocytes % (Manual) Eosinophils % (Manual) Nucleated RBC % Seg Neutrophils # Seg Neutrophils # Man Lymphocytes # (Manual) Monocytes # (Manual) Eosinophils # (Manual) PT INR APTT Fibrinogen POC ABG pH 7.260 L ABG pH POC ABG pCO2 54.9 H POC ABG pO2 ABG pO2 ABG HCO3 ABG O2 Saturation ABG Base Excess ABG Hemoglobin Oxyhemoglobin Sodium Potassium 5.6 H Chloride Carbon Dioxide BUN 104 H Creatinine 6.6 H Glucose 107 H POC Glucose 106 H Uric Acid Calcium Phosphorus Magnesium AST ALT Total Creatine Kinase CK-MB (CK-2) Troponin T NT-Pro-B Natriuret Pep Total Protein Albumin Triglycerides HDL Cholesterol Urine WBC (Auto) Urine Creatinine Urine Total Protein Vancomycin Trough 05/18/19 05/18/19 05/19/19 11:34 23:26 04:06 WBC RBC 3.22 L Hgb 8.8 L Hct 27.3 L MCV MCH 27 L MCHC RDW 17.5 H Plt Count Lymph % (Auto) [place] % (Auto) Eos % (Auto) Lymph # [place] # Eos # Seg Neutrophils % Seg Neuts % (Manual) 74.0 H Lymphocytes % (Manual) 4.0 L Monocytes % (Manual) 11.0 H Eosinophils % (Manual) 7.0 H Nucleated RBC % 1.0 H Seg Neutrophils # Seg Neutrophils # Man Lymphocytes # (Manual) 0.3 L Monocytes # (Manual) 0.9 H Eosinophils # (Manual) 0.6 H PT INR APTT Fibrinogen POC ABG pH ABG pH POC ABG pCO2 POC ABG pO2 ABG pO2 ABG HCO3 ABG O2 Saturation ABG Base Excess ABG Hemoglobin Oxyhemoglobin Sodium Potassium Chloride Carbon Dioxide BUN Creatinine Glucose POC Glucose 152 H 112 H Uric Acid Calcium Phosphorus Magnesium AST ALT Total Creatine Kinase CK-MB (CK-2) Troponin T NT-Pro-B Natriuret Pep Total Protein Albumin Triglycerides HDL Cholesterol Urine WBC (Auto) Urine Creatinine Urine Total Protein Vancomycin Trough 05/19/19 05/19/19 05/20/19 04:06 06:00 04:00 WBC RBC 3.40 L Hgb 9.2 L Hct 28.6 L MCV MCH 27 L MCHC RDW 17.6 H Plt Count Lymph % (Auto) [place] % (Auto) Eos % (Auto) Lymph # [place] # Eos # Seg Neutrophils % Seg Neuts % (Manual) Lymphocytes % (Manual) 11.0 L Monocytes % (Manual) Eosinophils % (Manual) 14.0 H Nucleated RBC % Seg Neutrophils # Seg Neutrophils # Man Lymphocytes # (Manual) 1.1 L Monocytes # (Manual) Eosinophils # (Manual) 1.4 H PT INR APTT Fibrinogen POC ABG pH ABG pH 7.315 L POC ABG pCO2 POC ABG pO2 ABG pO2 ABG HCO3 ABG O2 Saturation ABG Base Excess ABG Hemoglobin 6.7 L Oxyhemoglobin 94.1 L Sodium Potassium 5.2 H Chloride Carbon Dioxide 21 L BUN 110 H Creatinine 7.2 H Glucose POC Glucose Uric Acid Calcium 8.3 L Phosphorus Magnesium AST ALT Total Creatine Kinase CK-MB (CK-2) Troponin T NT-Pro-B Natriuret Pep Total Protein Albumin Triglycerides HDL Cholesterol Urine WBC (Auto) Urine Creatinine Urine Total Protein Vancomycin Trough 05/20/19 05/20/19 05/20/19 04:00 05:48 12:00 WBC RBC Hgb Hct MCV MCH MCHC RDW Plt Count Lymph % (Auto) [place] % (Auto) Eos % (Auto) Lymph # [place] # Eos # Seg Neutrophils % Seg Neuts % (Manual) Lymphocytes % (Manual) Monocytes % (Manual) Eosinophils % (Manual) Nucleated RBC % Seg Neutrophils # Seg Neutrophils # Man Lymphocytes # (Manual) Monocytes # (Manual) Eosinophils # (Manual) PT INR APTT Fibrinogen POC ABG pH ABG pH 7.281 L POC ABG pCO2 POC ABG pO2 ABG pO2 78.7 L ABG HCO3 ABG O2 Saturation 94.5 L ABG Base Excess -3.0 L ABG Hemoglobin 9.9 L Oxyhemoglobin 92.5 L Sodium 136 L Potassium 5.7 H Chloride 96.3 L Carbon Dioxide BUN 125 H Creatinine 8.3 H Glucose 106 H POC Glucose Uric Acid Calcium Phosphorus Magnesium AST ALT Total Creatine Kinase CK-MB (CK-2) Troponin T NT-Pro-B Natriuret Pep Total Protein Albumin Triglycerides HDL Cholesterol Urine WBC (Auto) 26.0 H Urine Creatinine Urine Total Protein Vancomycin Trough 05/21/19 05/21/19 05/21/19 04:33 05:20 Unknown WBC RBC 3.38 L Hgb 9.1 L Hct 28.5 L MCV MCH 27 L MCHC RDW 17.4 H Plt Count Lymph % (Auto) [place] % (Auto) Eos % (Auto) Lymph # [place] # Eos # Seg Neutrophils % Seg Neuts % (Manual) 71.0 H Lymphocytes % (Manual) 1.0 L Monocytes % (Manual) 11.0 H Eosinophils % (Manual) 6.0 H Nucleated RBC % Seg Neutrophils # Seg Neutrophils # Man Lymphocytes # (Manual) 0.1 L Monocytes # (Manual) 1.0 H Eosinophils # (Manual) 0.6 H PT INR APTT Fibrinogen POC ABG pH 7.315 L ABG pH POC ABG pCO2 57.8 H POC ABG pO2 68 L ABG pO2 ABG HCO3 ABG O2 Saturation ABG Base Excess ABG Hemoglobin Oxyhemoglobin Sodium Potassium Chloride 96.3 L Carbon Dioxide BUN 102 H Creatinine 7.0 H Glucose 103 H POC Glucose Uric Acid Calcium Phosphorus Magnesium AST ALT Total Creatine Kinase CK-MB (CK-2) Troponin T NT-Pro-B Natriuret Pep Total Protein Albumin Triglycerides HDL Cholesterol Urine WBC (Auto) Urine Creatinine Urine Total Protein Vancomycin Trough 05/22/19 05/22/19 05/22/19 03:54 06:25 06:25 WBC RBC 3.22 L Hgb 8.6 L Hct 27.0 L MCV MCH 27 L MCHC RDW 17.5 H Plt Count Lymph % (Auto) [place] % (Auto) 16.2 H Eos % (Auto) 10.8 H Lymph # [place] # 1.3 H Eos # 0.9 H Seg Neutrophils % Seg Neuts % (Manual) Lymphocytes % (Manual) 10.0 L Monocytes % (Manual) 13.0 H Eosinophils % (Manual) 8.0 H Nucleated RBC % Seg Neutrophils # Seg Neutrophils # Man Lymphocytes # (Manual) 0.9 L Monocytes # (Manual) 1.1 H Eosinophils # (Manual) 0.7 H PT INR APTT Fibrinogen POC ABG pH 7.313 L ABG pH POC ABG pCO2 55.0 H POC ABG pO2 ABG pO2 ABG HCO3 ABG O2 Saturation ABG Base Excess ABG Hemoglobin Oxyhemoglobin Sodium 135 L Potassium Chloride 94.3 L Carbon Dioxide BUN 117 H Creatinine 7.8 H Glucose POC Glucose Uric Acid Calcium 8.2 L Phosphorus Magnesium AST ALT Total Creatine Kinase CK-MB (CK-2) Troponin T NT-Pro-B Natriuret Pep Total Protein Albumin Triglycerides HDL Cholesterol Urine WBC (Auto) Urine Creatinine Urine Total Protein Vancomycin Trough 05/23/19 05/24/19 05/24/19 05:21 05:00 05:00 WBC RBC 3.18 L Hgb 8.5 L Hct 26.7 L MCV MCH 27 L MCHC RDW 17.9 H Plt Count Lymph % (Auto) [place] % (Auto) Eos % (Auto) Lymph # [place] # Eos # Seg Neutrophils % Seg Neuts % (Manual) Lymphocytes % (Manual) Monocytes % (Manual) Eosinophils % (Manual) Nucleated RBC % Seg Neutrophils # Seg Neutrophils # Man Lymphocytes # (Manual) Monocytes # (Manual) Eosinophils # (Manual) PT INR APTT Fibrinogen POC ABG pH ABG pH POC ABG pCO2 49.7 H POC ABG pO2 73 L ABG pO2 ABG HCO3 ABG O2 Saturation ABG Base Excess ABG Hemoglobin Oxyhemoglobin Sodium Potassium Chloride 95.7 L Carbon Dioxide BUN 97 H Creatinine 6.5 H Glucose POC Glucose Uric Acid Calcium 8.0 L Phosphorus Magnesium AST ALT Total Creatine Kinase CK-MB (CK-2) Troponin T NT-Pro-B Natriuret Pep Total Protein Albumin Triglycerides HDL Cholesterol Urine WBC (Auto) Urine Creatinine Urine Total Protein Vancomycin Trough 05/24/19 05/25/19 05/25/19 06:17 04:22 15:45 WBC RBC 2.98 L Hgb 8.1 L Hct 24.9 L MCV MCH 27 L MCHC RDW 17.8 H Plt Count Lymph % (Auto) [place] % (Auto) Eos % (Auto) Lymph # [place] # Eos # Seg Neutrophils % Seg Neuts % (Manual) Lymphocytes % (Manual) Monocytes % (Manual) Eosinophils % (Manual) Nucleated RBC % Seg Neutrophils # Seg Neutrophils # Man Lymphocytes # (Manual) Monocytes # (Manual) Eosinophils # (Manual) PT INR APTT Fibrinogen POC ABG pH 7.330 L 7.313 L ABG pH POC ABG pCO2 52.5 H 51.1 H POC ABG pO2 77 L ABG pO2 ABG HCO3 ABG O2 Saturation ABG Base Excess ABG Hemoglobin Oxyhemoglobin Sodium Potassium Chloride Carbon Dioxide BUN Creatinine Glucose POC Glucose Uric Acid Calcium Phosphorus Magnesium AST ALT Total Creatine Kinase CK-MB (CK-2) Troponin T NT-Pro-B Natriuret Pep Total Protein Albumin Triglycerides HDL Cholesterol Urine WBC (Auto) Urine Creatinine Urine Total Protein Vancomycin Trough 05/25/19 05/26/19 05/26/19 15:45 04:13 05:00 WBC RBC 3.10 L Hgb 8.4 L Hct 26.0 L MCV MCH 27 L MCHC RDW 17.4 H Plt Count Lymph % (Auto) [place] % (Auto) Eos % (Auto) Lymph # [place] # Eos # Seg Neutrophils % Seg Neuts % (Manual) Lymphocytes % (Manual) Monocytes % (Manual) Eosinophils % (Manual) Nucleated RBC % Seg Neutrophils # Seg Neutrophils # Man Lymphocytes # (Manual) Monocytes # (Manual) Eosinophils # (Manual) PT INR APTT Fibrinogen POC ABG pH 7.295 L ABG pH POC ABG pCO2 56.5 H POC ABG pO2 63 L ABG pO2 ABG HCO3 ABG O2 Saturation ABG Base Excess ABG Hemoglobin Oxyhemoglobin Sodium 136 L Potassium Chloride 96.8 L Carbon Dioxide BUN 83 H Creatinine 5.9 H Glucose POC Glucose Uric Acid Calcium 7.6 L Phosphorus Magnesium AST ALT Total Creatine Kinase CK-MB (CK-2) Troponin T NT-Pro-B Natriuret Pep Total Protein Albumin Triglycerides HDL Cholesterol Urine WBC (Auto) Urine Creatinine Urine Total Protein Vancomycin Trough 05/26/19 05/27/19 05/28/19 05:00 04:48 04:47 WBC RBC Hgb Hct MCV MCH MCHC RDW Plt Count Lymph % (Auto) [place] % (Auto) Eos % (Auto) Lymph # [place] # Eos # Seg Neutrophils % Seg Neuts % (Manual) Lymphocytes % (Manual) Monocytes % (Manual) Eosinophils % (Manual) Nucleated RBC % Seg Neutrophils # Seg Neutrophils # Man Lymphocytes # (Manual) Monocytes # (Manual) Eosinophils # (Manual) PT INR APTT Fibrinogen POC ABG pH 7.323 L ABG pH 7.284 L POC ABG pCO2 56.2 H POC ABG pO2 ABG pO2 71.6 L ABG HCO3 ABG O2 Saturation 92.0 L ABG Base Excess ABG Hemoglobin 7.7 L Oxyhemoglobin 89.9 L Sodium 136 L Potassium Chloride 95.3 L Carbon Dioxide BUN 96 H Creatinine 6.5 H Glucose 108 H POC Glucose Uric Acid Calcium 7.6 L Phosphorus Magnesium AST ALT Total Creatine Kinase CK-MB (CK-2) Troponin T NT-Pro-B Natriuret Pep Total Protein Albumin Triglycerides HDL Cholesterol Urine WBC (Auto) Urine Creatinine Urine Total Protein Vancomycin Trough 05/28/19 05/29/19 05/29/19 12:30 12:47 23:44 WBC RBC Hgb Hct MCV MCH MCHC RDW Plt Count Lymph % (Auto) [place] % (Auto) Eos % (Auto) Lymph # [place] # Eos # Seg Neutrophils % Seg Neuts % (Manual) Lymphocytes % (Manual) Monocytes % (Manual) Eosinophils % (Manual) Nucleated RBC % Seg Neutrophils # Seg Neutrophils # Man Lymphocytes # (Manual) Monocytes # (Manual) Eosinophils # (Manual) PT INR APTT Fibrinogen POC ABG pH ABG pH POC ABG pCO2 POC ABG pO2 ABG pO2 ABG HCO3 ABG O2 Saturation ABG Base Excess ABG Hemoglobin Oxyhemoglobin Sodium 135 L Potassium Chloride 95.3 L Carbon Dioxide BUN 82 H Creatinine 6.0 H Glucose POC Glucose 136 H 159 H Uric Acid Calcium 7.5 L Phosphorus Magnesium AST ALT Total Creatine Kinase CK-MB (CK-2) Troponin T NT-Pro-B Natriuret Pep Total Protein Albumin Triglycerides HDL Cholesterol Urine WBC (Auto) Urine Creatinine Urine Total Protein Vancomycin Trough 05/30/19 05/30/19 05/30/19 04:30 05:38 12:00 WBC RBC 3.01 L Hgb 8.2 L Hct 25.3 L MCV MCH 27 L MCHC RDW 17.5 H Plt Count Lymph % (Auto) [place] % (Auto) Eos % (Auto) Lymph # [place] # Eos # Seg Neutrophils % Seg Neuts % (Manual) 80.0 H Lymphocytes % (Manual) 10.0 L Monocytes % (Manual) Eosinophils % (Manual) Nucleated RBC % Seg Neutrophils # Seg Neutrophils # Man 8.0 H Lymphocytes # (Manual) 1.0 L Monocytes # (Manual) Eosinophils # (Manual) PT INR APTT Fibrinogen POC ABG pH ABG pH POC ABG pCO2 POC ABG pO2 73 L ABG pO2 ABG HCO3 ABG O2 Saturation ABG Base Excess ABG Hemoglobin Oxyhemoglobin Sodium Potassium Chloride Carbon Dioxide BUN Creatinine Glucose POC Glucose 166 H Uric Acid Calcium Phosphorus Magnesium AST ALT Total Creatine Kinase CK-MB (CK-2) Troponin T NT-Pro-B Natriuret Pep Total Protein Albumin Triglycerides HDL Cholesterol Urine WBC (Auto) Urine Creatinine Urine Total Protein Vancomycin Trough 05/30/19 05/31/19 05/31/19 23:45 04:07 13:04 WBC 14.3 H RBC 2.88 L Hgb 7.7 L Hct 23.9 L MCV 83 L MCH 27 L MCHC RDW 17.8 H Plt Count Lymph % (Auto) [place] % (Auto) Eos % (Auto) Lymph # [place] # Eos # Seg Neutrophils % Seg Neuts % (Manual) 83.0 H Lymphocytes % (Manual) 11.0 L Monocytes % (Manual) Eosinophils % (Manual) Nucleated RBC % Seg Neutrophils # Seg Neutrophils # Man 11.9 H Lymphocytes # (Manual) Monocytes # (Manual) 0.9 H Eosinophils # (Manual) PT INR APTT Fibrinogen POC ABG pH ABG pH POC ABG pCO2 47.4 H POC ABG pO2 ABG pO2 ABG HCO3 ABG O2 Saturation ABG Base Excess ABG Hemoglobin Oxyhemoglobin Sodium Potassium Chloride Carbon Dioxide BUN Creatinine Glucose POC Glucose 209 H Uric Acid Calcium Phosphorus Magnesium AST ALT Total Creatine Kinase CK-MB (CK-2) Troponin T NT-Pro-B Natriuret Pep Total Protein Albumin Triglycerides HDL Cholesterol Urine WBC (Auto) Urine Creatinine Urine Total Protein Vancomycin Trough 05/31/19 05/31/19 06/01/19 13:04 16:42 00:15 WBC RBC Hgb Hct MCV MCH MCHC RDW Plt Count Lymph % (Auto) [place] % (Auto) Eos % (Auto) Lymph # [place] # Eos # Seg Neutrophils % Seg Neuts % (Manual) Lymphocytes % (Manual) Monocytes % (Manual) Eosinophils % (Manual) Nucleated RBC % Seg Neutrophils # Seg Neutrophils # Man Lymphocytes # (Manual) Monocytes # (Manual) Eosinophils # (Manual) PT INR APTT Fibrinogen POC ABG pH ABG pH POC ABG pCO2 POC ABG pO2 ABG pO2 ABG HCO3 ABG O2 Saturation ABG Base Excess ABG Hemoglobin Oxyhemoglobin Sodium 129 L Potassium Chloride 88.6 L Carbon Dioxide 19 L BUN 117 H Creatinine 6.7 H Glucose 205 H POC Glucose 228 H 223 H Uric Acid Calcium 7.4 L Phosphorus 7.40 H Magnesium AST 58 H ALT 149 H Total Creatine Kinase CK-MB (CK-2) Troponin T NT-Pro-B Natriuret Pep Total Protein 6.0 L Albumin 2.5 L Triglycerides HDL Cholesterol Urine WBC (Auto) Urine Creatinine Urine Total Protein Vancomycin Trough 06/01/19 06/01/19 06/01/19 04:33 05:27 12:31 WBC RBC Hgb Hct MCV MCH MCHC RDW Plt Count Lymph % (Auto) [place] % (Auto) Eos % (Auto) Lymph # [place] # Eos # Seg Neutrophils % Seg Neuts % (Manual) Lymphocytes % (Manual) Monocytes % (Manual) Eosinophils % (Manual) Nucleated RBC % Seg Neutrophils # Seg Neutrophils # Man Lymphocytes # (Manual) Monocytes # (Manual) Eosinophils # (Manual) PT INR APTT Fibrinogen POC ABG pH ABG pH POC ABG pCO2 POC ABG pO2 ABG pO2 56.9 L ABG HCO3 ABG O2 Saturation 85.9 L ABG Base Excess ABG Hemoglobin 8.1 L Oxyhemoglobin 83.6 L Sodium Potassium Chloride Carbon Dioxide BUN Creatinine Glucose POC Glucose 183 H 217 H Uric Acid Calcium Phosphorus Magnesium AST ALT Total Creatine Kinase CK-MB (CK-2) Troponin T NT-Pro-B Natriuret Pep Total Protein Albumin Triglycerides HDL Cholesterol Urine WBC (Auto) Urine Creatinine Urine Total Protein Vancomycin Trough 06/01/19 06/02/19 06/02/19 18:20 00:00 05:33 WBC RBC Hgb Hct MCV MCH MCHC RDW Plt Count Lymph % (Auto) [place] % (Auto) Eos % (Auto) Lymph # [place] # Eos # Seg Neutrophils % Seg Neuts % (Manual) Lymphocytes % (Manual) Monocytes % (Manual) Eosinophils % (Manual) Nucleated RBC % Seg Neutrophils # Seg Neutrophils # Man Lymphocytes # (Manual) Monocytes # (Manual) Eosinophils # (Manual) PT INR APTT Fibrinogen POC ABG pH ABG pH POC ABG pCO2 POC ABG pO2 ABG pO2 ABG HCO3 ABG O2 Saturation ABG Base Excess ABG Hemoglobin Oxyhemoglobin Sodium Potassium Chloride Carbon Dioxide BUN Creatinine Glucose POC Glucose 265 H 279 H 259 H Uric Acid Calcium Phosphorus Magnesium AST ALT Total Creatine Kinase CK-MB (CK-2) Troponin T NT-Pro-B Natriuret Pep Total Protein Albumin Triglycerides HDL Cholesterol Urine WBC (Auto) Urine Creatinine Urine Total Protein Vancomycin Trough 06/02/19 06/02/19 06/02/19 11:06 11:06 11:42 WBC 13.1 H RBC 2.92 L Hgb 7.9 L Hct 24.4 L MCV MCH 27 L MCHC RDW 17.4 H Plt Count Lymph % (Auto) [place] % (Auto) Eos % (Auto) Lymph # [place] # Eos # Seg Neutrophils % Seg Neuts % (Manual) 78.0 H Lymphocytes % (Manual) 12.0 L Monocytes % (Manual) 10.0 H Eosinophils % (Manual) Nucleated RBC % Seg Neutrophils # Seg Neutrophils # Man 10.2 H Lymphocytes # (Manual) Monocytes # (Manual) 1.3 H Eosinophils # (Manual) PT INR APTT Fibrinogen POC ABG pH ABG pH POC ABG pCO2 POC ABG pO2 ABG pO2 ABG HCO3 ABG O2 Saturation ABG Base Excess ABG Hemoglobin Oxyhemoglobin Sodium 135 L Potassium Chloride 94.7 L Carbon Dioxide 21 L BUN 107 H Creatinine 4.5 H Glucose 286 H POC Glucose 263 H Uric Acid Calcium 7.9 L Phosphorus 6.30 H Magnesium AST ALT 104 H Total Creatine Kinase CK-MB (CK-2) Troponin T NT-Pro-B Natriuret Pep Total Protein 6.0 L Albumin 2.7 L Triglycerides HDL Cholesterol Urine WBC (Auto) Urine Creatinine Urine Total Protein Vancomycin Trough 06/02/19 06/02/19 06/03/19 18:17 23:55 05:30 WBC RBC Hgb Hct MCV MCH MCHC RDW Plt Count Lymph % (Auto) [place] % (Auto) Eos % (Auto) Lymph # [place] # Eos # Seg Neutrophils % Seg Neuts % (Manual) Lymphocytes % (Manual) Monocytes % (Manual) Eosinophils % (Manual) Nucleated RBC % Seg Neutrophils # Seg Neutrophils # Man Lymphocytes # (Manual) Monocytes # (Manual) Eosinophils # (Manual) PT INR APTT Fibrinogen POC ABG pH ABG pH POC ABG pCO2 POC ABG pO2 ABG pO2 ABG HCO3 ABG O2 Saturation ABG Base Excess ABG Hemoglobin Oxyhemoglobin Sodium Potassium Chloride 95.1 L Carbon Dioxide 21 L BUN 119 H Creatinine 4.1 H Glucose 330 H POC Glucose 276 H 244 H Uric Acid Calcium 8.1 L Phosphorus Magnesium AST ALT 98 H Total Creatine Kinase CK-MB (CK-2) Troponin T NT-Pro-B Natriuret Pep Total Protein 5.8 L Albumin 2.8 L Triglycerides HDL Cholesterol Urine WBC (Auto) Urine Creatinine Urine Total Protein Vancomycin Trough 06/03/19 06/03/19 06/03/19 05:30 06:04 09:42 WBC 12.8 H RBC 3.01 L Hgb 8.2 L Hct 25.4 L MCV MCH 27 L MCHC RDW 17.5 H Plt Count Lymph % (Auto) [place] % (Auto) Eos % (Auto) Lymph # [place] # Eos # Seg Neutrophils % Seg Neuts % (Manual) 78.0 H Lymphocytes % (Manual) 10.0 L Monocytes % (Manual) 12.0 H Eosinophils % (Manual) Nucleated RBC % Seg Neutrophils # Seg Neutrophils # Man 10.0 H Lymphocytes # (Manual) Monocytes # (Manual) 1.5 H Eosinophils # (Manual) PT INR APTT Fibrinogen POC ABG pH ABG pH POC ABG pCO2 POC ABG pO2 ABG pO2 ABG HCO3 ABG O2 Saturation ABG Base Excess ABG Hemoglobin Oxyhemoglobin Sodium Potassium Chloride Carbon Dioxide BUN 106 H Creatinine Glucose POC Glucose 254 H Uric Acid Calcium Phosphorus Magnesium AST ALT Total Creatine Kinase CK-MB (CK-2) Troponin T NT-Pro-B Natriuret Pep Total Protein Albumin Triglycerides HDL Cholesterol Urine WBC (Auto) Urine Creatinine Urine Total Protein Vancomycin Trough 06/03/19 06/03/19 06/03/19 12:52 17:25 23:37 WBC RBC Hgb Hct MCV MCH MCHC RDW Plt Count Lymph % (Auto) [place] % (Auto) Eos % (Auto) Lymph # [place] # Eos # Seg Neutrophils % Seg Neuts % (Manual) Lymphocytes % (Manual) Monocytes % (Manual) Eosinophils % (Manual) Nucleated RBC % Seg Neutrophils # Seg Neutrophils # Man Lymphocytes # (Manual) Monocytes # (Manual) Eosinophils # (Manual) PT INR APTT Fibrinogen POC ABG pH ABG pH POC ABG pCO2 POC ABG pO2 ABG pO2 ABG HCO3 ABG O2 Saturation ABG Base Excess ABG Hemoglobin Oxyhemoglobin Sodium Potassium Chloride Carbon Dioxide BUN Creatinine Glucose POC Glucose 274 H 285 H 310 H Uric Acid Calcium Phosphorus Magnesium AST ALT Total Creatine Kinase CK-MB (CK-2) Troponin T NT-Pro-B Natriuret Pep Total Protein Albumin Triglycerides HDL Cholesterol Urine WBC (Auto) Urine Creatinine Urine Total Protein Vancomycin Trough 06/04/19 06/04/19 06/04/19 04:57 05:03 11:50 WBC RBC Hgb Hct MCV MCH MCHC RDW Plt Count Lymph % (Auto) [place] % (Auto) Eos % (Auto) Lymph # [place] # Eos # Seg Neutrophils % Seg Neuts % (Manual) Lymphocytes % (Manual) Monocytes % (Manual) Eosinophils % (Manual) Nucleated RBC % Seg Neutrophils # Seg Neutrophils # Man Lymphocytes # (Manual) Monocytes # (Manual) Eosinophils # (Manual) PT INR APTT Fibrinogen POC ABG pH 7.488 H ABG pH POC ABG pCO2 POC ABG pO2 ABG pO2 ABG HCO3 ABG O2 Saturation ABG Base Excess ABG Hemoglobin Oxyhemoglobin Sodium Potassium Chloride Carbon Dioxide BUN Creatinine Glucose POC Glucose 275 H 279 H Uric Acid Calcium Phosphorus Magnesium AST ALT Total Creatine Kinase CK-MB (CK-2) Troponin T NT-Pro-B Natriuret Pep Total Protein Albumin Triglycerides HDL Cholesterol Urine WBC (Auto) Urine Creatinine Urine Total Protein Vancomycin Trough 06/04/19 06/04/19 06/04/19 18:32 22:03 23:55 WBC RBC Hgb Hct MCV MCH MCHC RDW Plt Count Lymph % (Auto) [place] % (Auto) Eos % (Auto) Lymph # [place] # Eos # Seg Neutrophils % Seg Neuts % (Manual) Lymphocytes % (Manual) Monocytes % (Manual) Eosinophils % (Manual) Nucleated RBC % Seg Neutrophils # Seg Neutrophils # Man Lymphocytes # (Manual) Monocytes # (Manual) Eosinophils # (Manual) PT INR APTT Fibrinogen POC ABG pH ABG pH POC ABG pCO2 POC ABG pO2 ABG pO2 ABG HCO3 ABG O2 Saturation ABG Base Excess ABG Hemoglobin Oxyhemoglobin Sodium Potassium Chloride Carbon Dioxide BUN Creatinine Glucose POC Glucose 267 H 307 H 292 H Uric Acid Calcium Phosphorus Magnesium AST ALT Total Creatine Kinase CK-MB (CK-2) Troponin T NT-Pro-B Natriuret Pep Total Protein Albumin Triglycerides HDL Cholesterol Urine WBC (Auto) Urine Creatinine Urine Total Protein Vancomycin Trough 06/05/19 06/05/19 06/05/19 03:52 06:41 12:29 WBC RBC Hgb Hct MCV MCH MCHC RDW Plt Count Lymph % (Auto) [place] % (Auto) Eos % (Auto) Lymph # [place] # Eos # Seg Neutrophils % Seg Neuts % (Manual) Lymphocytes % (Manual) Monocytes % (Manual) Eosinophils % (Manual) Nucleated RBC % Seg Neutrophils # Seg Neutrophils # Man Lymphocytes # (Manual) Monocytes # (Manual) Eosinophils # (Manual) PT INR APTT Fibrinogen POC ABG pH 7.462 H ABG pH POC ABG pCO2 POC ABG pO2 ABG pO2 ABG HCO3 ABG O2 Saturation ABG Base Excess ABG Hemoglobin Oxyhemoglobin Sodium Potassium Chloride Carbon Dioxide BUN Creatinine Glucose POC Glucose 369 H 265 H Uric Acid Calcium Phosphorus Magnesium AST ALT Total Creatine Kinase CK-MB (CK-2) Troponin T NT-Pro-B Natriuret Pep Total Protein Albumin Triglycerides HDL Cholesterol Urine WBC (Auto) Urine Creatinine Urine Total Protein Vancomycin Trough 06/05/19 06/05/19 06/05/19 18:20 21:42 23:21 WBC RBC Hgb Hct MCV MCH MCHC RDW Plt Count Lymph % (Auto) [place] % (Auto) Eos % (Auto) Lymph # [place] # Eos # Seg Neutrophils % Seg Neuts % (Manual) Lymphocytes % (Manual) Monocytes % (Manual) Eosinophils % (Manual) Nucleated RBC % Seg Neutrophils # Seg Neutrophils # Man Lymphocytes # (Manual) Monocytes # (Manual) Eosinophils # (Manual) PT INR APTT Fibrinogen POC ABG pH ABG pH POC ABG pCO2 POC ABG pO2 ABG pO2 ABG HCO3 ABG O2 Saturation ABG Base Excess ABG Hemoglobin Oxyhemoglobin Sodium Potassium Chloride Carbon Dioxide BUN Creatinine Glucose POC Glucose 249 H 246 H 274 H Uric Acid Calcium Phosphorus Magnesium AST ALT Total Creatine Kinase CK-MB (CK-2) Troponin T NT-Pro-B Natriuret Pep Total Protein Albumin Triglycerides HDL Cholesterol Urine WBC (Auto) Urine Creatinine Urine Total Protein Vancomycin Trough 06/06/19 06/06/19 06/06/19 04:00 05:49 11:34 WBC 18.1 H RBC 3.53 L Hgb 9.5 L Hct 30.3 L MCV MCH 27 L MCHC 31 L RDW 19.5 H Plt Count Lymph % (Auto) [place] % (Auto) Eos % (Auto) Lymph # [place] # Eos # Seg Neutrophils % Seg Neuts % (Manual) 87.0 H Lymphocytes % (Manual) 3.0 L Monocytes % (Manual) 8.0 H Eosinophils % (Manual) Nucleated RBC % Seg Neutrophils # Seg Neutrophils # Man 15.7 H Lymphocytes # (Manual) 0.5 L Monocytes # (Manual) 1.4 H Eosinophils # (Manual) PT INR APTT Fibrinogen POC ABG pH ABG pH 7.472 H POC ABG pCO2 POC ABG pO2 ABG pO2 76.4 L ABG HCO3 28.1 H ABG O2 Saturation ABG Base Excess 4.3 H ABG Hemoglobin 12.5 L Oxyhemoglobin 93.8 L Sodium Potassium Chloride Carbon Dioxide BUN Creatinine Glucose POC Glucose 340 H Uric Acid Calcium Phosphorus Magnesium AST ALT Total Creatine Kinase CK-MB (CK-2) Troponin T NT-Pro-B Natriuret Pep Total Protein Albumin Triglycerides HDL Cholesterol Urine WBC (Auto) Urine Creatinine Urine Total Protein Vancomycin Trough 06/06/19 06/06/19 06/06/19 11:34 12:11 18:10 WBC RBC Hgb Hct MCV MCH MCHC RDW Plt Count Lymph % (Auto) [place] % (Auto) Eos % (Auto) Lymph # [place] # Eos # Seg Neutrophils % Seg Neuts % (Manual) Lymphocytes % (Manual) Monocytes % (Manual) Eosinophils % (Manual) Nucleated RBC % Seg Neutrophils # Seg Neutrophils # Man Lymphocytes # (Manual) Monocytes # (Manual) Eosinophils # (Manual) PT INR APTT Fibrinogen POC ABG pH ABG pH POC ABG pCO2 POC ABG pO2 ABG pO2 ABG HCO3 ABG O2 Saturation ABG Base Excess ABG Hemoglobin Oxyhemoglobin Sodium Potassium Chloride Carbon Dioxide BUN 70 H Creatinine Glucose 310 H POC Glucose 283 H 301 H Uric Acid Calcium 8.3 L Phosphorus 4.60 H Magnesium AST ALT 75 H Total Creatine Kinase CK-MB (CK-2) Troponin T NT-Pro-B Natriuret Pep Total Protein 5.6 L Albumin 2.9 L Triglycerides HDL Cholesterol Urine WBC (Auto) Urine Creatinine Urine Total Protein Vancomycin Trough 06/06/19 06/06/19 06/07/19 22:21 23:16 04:30 WBC RBC Hgb Hct MCV MCH MCHC RDW Plt Count Lymph % (Auto) [place] % (Auto) Eos % (Auto) Lymph # [place] # Eos # Seg Neutrophils % Seg Neuts % (Manual) Lymphocytes % (Manual) Monocytes % (Manual) Eosinophils % (Manual) Nucleated RBC % Seg Neutrophils # Seg Neutrophils # Man Lymphocytes # (Manual) Monocytes # (Manual) Eosinophils # (Manual) PT INR APTT Fibrinogen POC ABG pH ABG pH 7.480 H POC ABG pCO2 POC ABG pO2 ABG pO2 77.0 L ABG HCO3 27.2 H ABG O2 Saturation ABG Base Excess 3.5 H ABG Hemoglobin 7.1 L Oxyhemoglobin 94.2 L Sodium Potassium Chloride Carbon Dioxide BUN Creatinine Glucose POC Glucose 289 H 343 H Uric Acid Calcium Phosphorus Magnesium AST ALT Total Creatine Kinase CK-MB (CK-2) Troponin T NT-Pro-B Natriuret Pep Total Protein Albumin Triglycerides HDL Cholesterol Urine WBC (Auto) Urine Creatinine Urine Total Protein Vancomycin Trough 06/07/19 06/07/19 06/07/19 05:15 12:52 18:41 WBC RBC Hgb Hct MCV MCH MCHC RDW Plt Count Lymph % (Auto) [place] % (Auto) Eos % (Auto) Lymph # [place] # Eos # Seg Neutrophils % Seg Neuts % (Manual) Lymphocytes % (Manual) Monocytes % (Manual) Eosinophils % (Manual) Nucleated RBC % Seg Neutrophils # Seg Neutrophils # Man Lymphocytes # (Manual) Monocytes # (Manual) Eosinophils # (Manual) PT INR APTT Fibrinogen POC ABG pH ABG pH POC ABG pCO2 POC ABG pO2 ABG pO2 ABG HCO3 ABG O2 Saturation ABG Base Excess ABG Hemoglobin Oxyhemoglobin Sodium Potassium Chloride Carbon Dioxide BUN Creatinine Glucose POC Glucose 307 H 226 H 187 H Uric Acid Calcium Phosphorus Magnesium AST ALT Total Creatine Kinase CK-MB (CK-2) Troponin T NT-Pro-B Natriuret Pep Total Protein Albumin Triglycerides HDL Cholesterol Urine WBC (Auto) Urine Creatinine Urine Total Protein Vancomycin Trough 06/07/19 06/07/19 06/08/19 22:54 23:46 04:20 WBC 16.0 H RBC Hgb 10.0 L Hct 32.1 L MCV MCH 27 L MCHC 31 L RDW 19.4 H Plt Count Lymph % (Auto) [place] % (Auto) Eos % (Auto) Lymph # [place] # Eos # Seg Neutrophils % Seg Neuts % (Manual) 87.0 H Lymphocytes % (Manual) 7.0 L Monocytes % (Manual) Eosinophils % (Manual) Nucleated RBC % Seg Neutrophils # Seg Neutrophils # Man 13.9 H Lymphocytes # (Manual) 1.1 L Monocytes # (Manual) 1.0 H Eosinophils # (Manual) PT INR APTT Fibrinogen POC ABG pH ABG pH POC ABG pCO2 POC ABG pO2 ABG pO2 ABG HCO3 ABG O2 Saturation ABG Base Excess ABG Hemoglobin Oxyhemoglobin Sodium Potassium Chloride Carbon Dioxide BUN Creatinine Glucose POC Glucose 199 H 172 H Uric Acid Calcium Phosphorus Magnesium AST ALT Total Creatine Kinase CK-MB (CK-2) Troponin T NT-Pro-B Natriuret Pep Total Protein Albumin Triglycerides HDL Cholesterol Urine WBC (Auto) Urine Creatinine Urine Total Protein Vancomycin Trough 06/08/19 06/08/19 06/08/19 04:20 05:15 11:31 WBC RBC Hgb Hct MCV MCH MCHC RDW Plt Count Lymph % (Auto) [place] % (Auto) Eos % (Auto) Lymph # [place] # Eos # Seg Neutrophils % Seg Neuts % (Manual) Lymphocytes % (Manual) Monocytes % (Manual) Eosinophils % (Manual) Nucleated RBC % Seg Neutrophils # Seg Neutrophils # Man Lymphocytes # (Manual) Monocytes # (Manual) Eosinophils # (Manual) PT INR APTT Fibrinogen POC ABG pH ABG pH POC ABG pCO2 POC ABG pO2 ABG pO2 ABG HCO3 ABG O2 Saturation ABG Base Excess ABG Hemoglobin Oxyhemoglobin Sodium 146 H D Potassium Chloride Carbon Dioxide BUN 77 H Creatinine Glucose 205 H POC Glucose 209 H 181 H Uric Acid Calcium Phosphorus Magnesium AST ALT 66 H Total Creatine Kinase CK-MB (CK-2) Troponin T NT-Pro-B Natriuret Pep Total Protein 5.5 L Albumin 2.9 L Triglycerides HDL Cholesterol Urine WBC (Auto) Urine Creatinine Urine Total Protein Vancomycin Trough 06/08/19 06/08/19 06/09/19 17:28 23:24 05:20 WBC RBC Hgb Hct MCV MCH MCHC RDW Plt Count Lymph % (Auto) [place] % (Auto) Eos % (Auto) Lymph # [place] # Eos # Seg Neutrophils % Seg Neuts % (Manual) Lymphocytes % (Manual) Monocytes % (Manual) Eosinophils % (Manual) Nucleated RBC % Seg Neutrophils # Seg Neutrophils # Man Lymphocytes # (Manual) Monocytes # (Manual) Eosinophils # (Manual) PT INR APTT Fibrinogen POC ABG pH ABG pH POC ABG pCO2 POC ABG pO2 ABG pO2 ABG HCO3 ABG O2 Saturation ABG Base Excess ABG Hemoglobin Oxyhemoglobin Sodium Potassium Chloride Carbon Dioxide BUN Creatinine Glucose POC Glucose 215 H 200 H 173 H Uric Acid Calcium Phosphorus Magnesium AST ALT Total Creatine Kinase CK-MB (CK-2) Troponin T NT-Pro-B Natriuret Pep Total Protein Albumin Triglycerides HDL Cholesterol Urine WBC (Auto) Urine Creatinine Urine Total Protein Vancomycin Trough 06/09/19 06/09/19 06/09/19 12:07 18:32 23:51 WBC RBC Hgb Hct MCV MCH MCHC RDW Plt Count Lymph % (Auto) [place] % (Auto) Eos % (Auto) Lymph # [place] # Eos # Seg Neutrophils % Seg Neuts % (Manual) Lymphocytes % (Manual) Monocytes % (Manual) Eosinophils % (Manual) Nucleated RBC % Seg Neutrophils # Seg Neutrophils # Man Lymphocytes # (Manual) Monocytes # (Manual) Eosinophils # (Manual) PT INR APTT Fibrinogen POC ABG pH ABG pH POC ABG pCO2 POC ABG pO2 ABG pO2 ABG HCO3 ABG O2 Saturation ABG Base Excess ABG Hemoglobin Oxyhemoglobin Sodium Potassium Chloride Carbon Dioxide BUN Creatinine Glucose POC Glucose 117 H 169 H 147 H Uric Acid Calcium Phosphorus Magnesium AST ALT Total Creatine Kinase CK-MB (CK-2) Troponin T NT-Pro-B Natriuret Pep Total Protein Albumin Triglycerides HDL Cholesterol Urine WBC (Auto) Urine Creatinine Urine Total Protein Vancomycin Trough 06/10/19 06/10/19 06/10/19 05:45 05:45 06:01 WBC 14.6 H RBC Hgb 9.9 L Hct 32.2 L MCV MCH 27 L MCHC 31 L RDW 19.6 H Plt Count Lymph % (Auto) 10.5 L [place] % (Auto) 9.4 H Eos % (Auto) Lymph # [place] # 1.4 H Eos # Seg Neutrophils % 79.9 H Seg Neuts % (Manual) Lymphocytes % (Manual) Monocytes % (Manual) Eosinophils % (Manual) Nucleated RBC % Seg Neutrophils # 11.7 H Seg Neutrophils # Man Lymphocytes # (Manual) Monocytes # (Manual) Eosinophils # (Manual) PT INR APTT Fibrinogen POC ABG pH ABG pH POC ABG pCO2 POC ABG pO2 ABG pO2 ABG HCO3 ABG O2 Saturation ABG Base Excess ABG Hemoglobin Oxyhemoglobin Sodium 150 H Potassium Chloride 108.3 H Carbon Dioxide BUN 49 H Creatinine Glucose 172 H POC Glucose 165 H Uric Acid Calcium Phosphorus Magnesium 1.40 L AST ALT Total Creatine Kinase CK-MB (CK-2) Troponin T NT-Pro-B Natriuret Pep Total Protein Albumin Triglycerides HDL Cholesterol Urine WBC (Auto) Urine Creatinine Urine Total Protein Vancomycin Trough 06/10/19 06/10/19 06/11/19 12:11 18:30 00:02 WBC RBC Hgb Hct MCV MCH MCHC RDW Plt Count Lymph % (Auto) [place] % (Auto) Eos % (Auto) Lymph # [place] # Eos # Seg Neutrophils % Seg Neuts % (Manual) Lymphocytes % (Manual) Monocytes % (Manual) Eosinophils % (Manual) Nucleated RBC % Seg Neutrophils # Seg Neutrophils # Man Lymphocytes # (Manual) Monocytes # (Manual) Eosinophils # (Manual) PT INR APTT Fibrinogen POC ABG pH ABG pH POC ABG pCO2 POC ABG pO2 ABG pO2 ABG HCO3 ABG O2 Saturation ABG Base Excess ABG Hemoglobin Oxyhemoglobin Sodium Potassium Chloride Carbon Dioxide BUN Creatinine Glucose POC Glucose 150 H 154 H 130 H Uric Acid Calcium Phosphorus Magnesium AST ALT Total Creatine Kinase CK-MB (CK-2) Troponin T NT-Pro-B Natriuret Pep Total Protein Albumin Triglycerides HDL Cholesterol Urine WBC (Auto) Urine Creatinine Urine Total Protein Vancomycin Trough 06/11/19 06/11/19 06/11/19 05:33 08:34 12:33 WBC RBC Hgb Hct MCV MCH MCHC RDW Plt Count Lymph % (Auto) [place] % (Auto) Eos % (Auto) Lymph # [place] # Eos # Seg Neutrophils % Seg Neuts % (Manual) Lymphocytes % (Manual) Monocytes % (Manual) Eosinophils % (Manual) Nucleated RBC % Seg Neutrophils # Seg Neutrophils # Man Lymphocytes # (Manual) Monocytes # (Manual) Eosinophils # (Manual) PT INR APTT Fibrinogen POC ABG pH ABG pH POC ABG pCO2 POC ABG pO2 ABG pO2 ABG HCO3 ABG O2 Saturation ABG Base Excess ABG Hemoglobin Oxyhemoglobin Sodium 154 H Potassium Chloride 111.6 H Carbon Dioxide BUN 41 H Creatinine Glucose 147 H POC Glucose 183 H 185 H Uric Acid Calcium Phosphorus Magnesium AST ALT Total Creatine Kinase CK-MB (CK-2) Troponin T NT-Pro-B Natriuret Pep Total Protein Albumin Triglycerides HDL Cholesterol Urine WBC (Auto) Urine Creatinine Urine Total Protein Vancomycin Trough 06/11/19 06/11/19 06/12/19 18:22 23:46 03:21 WBC 11.9 H RBC 3.61 L Hgb 9.9 L Hct 31.7 L MCV MCH 27 L MCHC 31 L RDW 19.3 H Plt Count Lymph % (Auto) 10.6 L [place] % (Auto) 8.6 H Eos % (Auto) Lymph # [place] # 1.0 H Eos # Seg Neutrophils % 80.6 H Seg Neuts % (Manual) Lymphocytes % (Manual) Monocytes % (Manual) Eosinophils % (Manual) Nucleated RBC % Seg Neutrophils # 9.6 H Seg Neutrophils # Man Lymphocytes # (Manual) Monocytes # (Manual) Eosinophils # (Manual) PT INR APTT Fibrinogen POC ABG pH ABG pH POC ABG pCO2 POC ABG pO2 ABG pO2 ABG HCO3 ABG O2 Saturation ABG Base Excess ABG Hemoglobin Oxyhemoglobin Sodium Potassium Chloride Carbon Dioxide BUN Creatinine Glucose POC Glucose 158 H 182 H Uric Acid Calcium Phosphorus Magnesium AST ALT Total Creatine Kinase CK-MB (CK-2) Troponin T NT-Pro-B Natriuret Pep Total Protein Albumin Triglycerides HDL Cholesterol Urine WBC (Auto) Urine Creatinine Urine Total Protein Vancomycin Trough 06/12/19 06/12/19 06/12/19 03:21 06:04 11:28 WBC RBC Hgb Hct MCV MCH MCHC RDW Plt Count Lymph % (Auto) [place] % (Auto) Eos % (Auto) Lymph # [place] # Eos # Seg Neutrophils % Seg Neuts % (Manual) Lymphocytes % (Manual) Monocytes % (Manual) Eosinophils % (Manual) Nucleated RBC % Seg Neutrophils # Seg Neutrophils # Man Lymphocytes # (Manual) Monocytes # (Manual) Eosinophils # (Manual) PT INR APTT Fibrinogen POC ABG pH ABG pH POC ABG pCO2 POC ABG pO2 ABG pO2 ABG HCO3 ABG O2 Saturation ABG Base Excess ABG Hemoglobin Oxyhemoglobin Sodium 148 H Potassium Chloride 107.3 H Carbon Dioxide BUN 34 H Creatinine 0.7 L Glucose 194 H POC Glucose 133 H 167 H Uric Acid Calcium Phosphorus Magnesium 1.40 L AST ALT Total Creatine Kinase CK-MB (CK-2) Troponin T NT-Pro-B Natriuret Pep Total Protein Albumin Triglycerides HDL Cholesterol Urine WBC (Auto) Urine Creatinine Urine Total Protein Vancomycin Trough 06/12/19 06/12/19 06/13/19 18:47 21:27 00:04 WBC RBC Hgb Hct MCV MCH MCHC RDW Plt Count Lymph % (Auto) [place] % (Auto) Eos % (Auto) Lymph # [place] # Eos # Seg Neutrophils % Seg Neuts % (Manual) Lymphocytes % (Manual) Monocytes % (Manual) Eosinophils % (Manual) Nucleated RBC % Seg Neutrophils # Seg Neutrophils # Man Lymphocytes # (Manual) Monocytes # (Manual) Eosinophils # (Manual) PT INR APTT Fibrinogen POC ABG pH ABG pH POC ABG pCO2 POC ABG pO2 ABG pO2 ABG HCO3 ABG O2 Saturation ABG Base Excess ABG Hemoglobin Oxyhemoglobin Sodium Potassium Chloride Carbon Dioxide BUN Creatinine Glucose POC Glucose 210 H 263 H 248 H Uric Acid Calcium Phosphorus Magnesium AST ALT Total Creatine Kinase CK-MB (CK-2) Troponin T NT-Pro-B Natriuret Pep Total Protein Albumin Triglycerides HDL Cholesterol Urine WBC (Auto) Urine Creatinine Urine Total Protein Vancomycin Trough 06/13/19 06/13/19 06/13/19 04:32 05:46 13:30 WBC RBC Hgb Hct MCV MCH MCHC RDW Plt Count Lymph % (Auto) [place] % (Auto) Eos % (Auto) Lymph # [place] # Eos # Seg Neutrophils % Seg Neuts % (Manual) Lymphocytes % (Manual) Monocytes % (Manual) Eosinophils % (Manual) Nucleated RBC % Seg Neutrophils # Seg Neutrophils # Man Lymphocytes # (Manual) Monocytes # (Manual) Eosinophils # (Manual) PT INR APTT Fibrinogen POC ABG pH ABG pH POC ABG pCO2 POC ABG pO2 ABG pO2 ABG HCO3 ABG O2 Saturation ABG Base Excess ABG Hemoglobin Oxyhemoglobin Sodium Potassium Chloride Carbon Dioxide BUN 27 H Creatinine 0.7 L Glucose 253 H POC Glucose 201 H 241 H Uric Acid Calcium Phosphorus Magnesium AST ALT Total Creatine Kinase CK-MB (CK-2) Troponin T NT-Pro-B Natriuret Pep Total Protein Albumin Triglycerides HDL Cholesterol Urine WBC (Auto) Urine Creatinine Urine Total Protein Vancomycin Trough 06/13/19 06/13/19 06/14/19 17:33 23:49 04:50 WBC RBC Hgb Hct MCV MCH MCHC RDW Plt Count Lymph % (Auto) [place] % (Auto) Eos % (Auto) Lymph # [place] # Eos # Seg Neutrophils % Seg Neuts % (Manual) Lymphocytes % (Manual) Monocytes % (Manual) Eosinophils % (Manual) Nucleated RBC % Seg Neutrophils # Seg Neutrophils # Man Lymphocytes # (Manual) Monocytes # (Manual) Eosinophils # (Manual) PT INR APTT Fibrinogen POC ABG pH ABG pH POC ABG pCO2 POC ABG pO2 ABG pO2 ABG HCO3 ABG O2 Saturation ABG Base Excess ABG Hemoglobin Oxyhemoglobin Sodium Potassium Chloride Carbon Dioxide BUN 37 H Creatinine Glucose 256 H POC Glucose 264 H 236 H Uric Acid Calcium Phosphorus Magnesium AST ALT Total Creatine Kinase CK-MB (CK-2) Troponin T NT-Pro-B Natriuret Pep Total Protein Albumin Triglycerides HDL Cholesterol Urine WBC (Auto) Urine Creatinine Urine Total Protein Vancomycin Trough 06/14/19 06/14/19 06/14/19 05:26 12:31 18:32 WBC RBC Hgb Hct MCV MCH MCHC RDW Plt Count Lymph % (Auto) [place] % (Auto) Eos % (Auto) Lymph # [place] # Eos # Seg Neutrophils % Seg Neuts % (Manual) Lymphocytes % (Manual) Monocytes % (Manual) Eosinophils % (Manual) Nucleated RBC % Seg Neutrophils # Seg Neutrophils # Man Lymphocytes # (Manual) Monocytes # (Manual) Eosinophils # (Manual) PT INR APTT Fibrinogen POC ABG pH ABG pH POC ABG pCO2 POC ABG pO2 ABG pO2 ABG HCO3 ABG O2 Saturation ABG Base Excess ABG Hemoglobin Oxyhemoglobin Sodium Potassium Chloride Carbon Dioxide BUN Creatinine Glucose POC Glucose 239 H 116 H 247 H Uric Acid Calcium Phosphorus Magnesium AST ALT Total Creatine Kinase CK-MB (CK-2) Troponin T NT-Pro-B Natriuret Pep Total Protein Albumin Triglycerides HDL Cholesterol Urine WBC (Auto) Urine Creatinine Urine Total Protein Vancomycin Trough 06/14/19 06/15/19 06/15/19 23:57 04:05 05:55 WBC RBC Hgb Hct MCV MCH MCHC RDW Plt Count Lymph % (Auto) [place] % (Auto) Eos % (Auto) Lymph # [place] # Eos # Seg Neutrophils % Seg Neuts % (Manual) Lymphocytes % (Manual) Monocytes % (Manual) Eosinophils % (Manual) Nucleated RBC % Seg Neutrophils # Seg Neutrophils # Man Lymphocytes # (Manual) Monocytes # (Manual) Eosinophils # (Manual) PT INR APTT Fibrinogen POC ABG pH ABG pH POC ABG pCO2 POC ABG pO2 ABG pO2 ABG HCO3 ABG O2 Saturation ABG Base Excess ABG Hemoglobin Oxyhemoglobin Sodium Potassium Chloride Carbon Dioxide BUN 46 H Creatinine 0.7 L Glucose 265 H POC Glucose 206 H 265 H Uric Acid Calcium Phosphorus Magnesium AST ALT Total Creatine Kinase CK-MB (CK-2) Troponin T NT-Pro-B Natriuret Pep Total Protein Albumin Triglycerides HDL Cholesterol Urine WBC (Auto) Urine Creatinine Urine Total Protein Vancomycin Trough 06/15/19 06/15/19 06/15/19 12:08 18:45 23:41 WBC RBC Hgb Hct MCV MCH MCHC RDW Plt Count Lymph % (Auto) [place] % (Auto) Eos % (Auto) Lymph # [place] # Eos # Seg Neutrophils % Seg Neuts % (Manual) Lymphocytes % (Manual) Monocytes % (Manual) Eosinophils % (Manual) Nucleated RBC % Seg Neutrophils # Seg Neutrophils # Man Lymphocytes # (Manual) Monocytes # (Manual) Eosinophils # (Manual) PT INR APTT Fibrinogen POC ABG pH ABG pH POC ABG pCO2 POC ABG pO2 ABG pO2 ABG HCO3 ABG O2 Saturation ABG Base Excess ABG Hemoglobin Oxyhemoglobin Sodium Potassium Chloride Carbon Dioxide BUN Creatinine Glucose POC Glucose 224 H 177 H 193 H Uric Acid Calcium Phosphorus Magnesium AST ALT Total Creatine Kinase CK-MB (CK-2) Troponin T NT-Pro-B Natriuret Pep Total Protein Albumin Triglycerides HDL Cholesterol Urine WBC (Auto) Urine Creatinine Urine Total Protein Vancomycin Trough 06/16/19 06/16/19 06/16/19 05:00 05:00 05:40 WBC 11.9 H RBC 3.24 L Hgb 9.0 L Hct 29.0 L MCV MCH MCHC 31 L RDW 18.6 H Plt Count 111 L Lymph % (Auto) [place] % (Auto) Eos % (Auto) Lymph # [place] # Eos # Seg Neutrophils % Seg Neuts % (Manual) 92.0 H Lymphocytes % (Manual) 2.0 L Monocytes % (Manual) Eosinophils % (Manual) Nucleated RBC % Seg Neutrophils # Seg Neutrophils # Man 10.9 H Lymphocytes # (Manual) 0.2 L Monocytes # (Manual) Eosinophils # (Manual) PT INR APTT Fibrinogen POC ABG pH ABG pH POC ABG pCO2 POC ABG pO2 ABG pO2 ABG HCO3 ABG O2 Saturation ABG Base Excess ABG Hemoglobin Oxyhemoglobin Sodium Potassium Chloride Carbon Dioxide 33 H BUN 49 H Creatinine 0.7 L Glucose 264 H POC Glucose 247 H Uric Acid Calcium Phosphorus Magnesium AST ALT Total Creatine Kinase CK-MB (CK-2) Troponin T NT-Pro-B Natriuret Pep Total Protein Albumin Triglycerides HDL Cholesterol Urine WBC (Auto) Urine Creatinine Urine Total Protein Vancomycin Trough 06/16/19 06/16/19 06/16/19 12:03 17:11 18:11 WBC RBC Hgb Hct MCV MCH MCHC RDW Plt Count Lymph % (Auto) [place] % (Auto) Eos % (Auto) Lymph # [place] # Eos # Seg Neutrophils % Seg Neuts % (Manual) Lymphocytes % (Manual) Monocytes % (Manual) Eosinophils % (Manual) Nucleated RBC % Seg Neutrophils # Seg Neutrophils # Man Lymphocytes # (Manual) Monocytes # (Manual) Eosinophils # (Manual) PT INR APTT Fibrinogen POC ABG pH ABG pH 7.289 L POC ABG pCO2 POC ABG pO2 ABG pO2 399.3 H ABG HCO3 30.1 H ABG O2 Saturation 99.6 H ABG Base Excess ABG Hemoglobin 8.6 L Oxyhemoglobin Sodium Potassium Chloride Carbon Dioxide BUN Creatinine Glucose POC Glucose 252 H 254 H Uric Acid Calcium Phosphorus Magnesium AST ALT Total Creatine Kinase CK-MB (CK-2) Troponin T NT-Pro-B Natriuret Pep Total Protein Albumin Triglycerides HDL Cholesterol Urine WBC (Auto) Urine Creatinine Urine Total Protein Vancomycin Trough 06/16/19 06/17/19 06/17/19 23:16 05:30 05:53 WBC RBC Hgb Hct MCV MCH MCHC RDW Plt Count Lymph % (Auto) [place] % (Auto) Eos % (Auto) Lymph # [place] # Eos # Seg Neutrophils % Seg Neuts % (Manual) Lymphocytes % (Manual) Monocytes % (Manual) Eosinophils % (Manual) Nucleated RBC % Seg Neutrophils # Seg Neutrophils # Man Lymphocytes # (Manual) Monocytes # (Manual) Eosinophils # (Manual) PT INR APTT Fibrinogen POC ABG pH ABG pH POC ABG pCO2 POC ABG pO2 ABG pO2 ABG HCO3 ABG O2 Saturation ABG Base Excess ABG Hemoglobin Oxyhemoglobin Sodium 147 H Potassium Chloride Carbon Dioxide 32 H BUN 60 H Creatinine Glucose 205 H POC Glucose 238 H 211 H Uric Acid Calcium Phosphorus Magnesium AST ALT Total Creatine Kinase CK-MB (CK-2) Troponin T NT-Pro-B Natriuret Pep Total Protein Albumin Triglycerides HDL Cholesterol Urine WBC (Auto) Urine Creatinine Urine Total Protein Vancomycin Trough 06/17/19 06/17/19 06/17/19 09:50 12:27 12:45 WBC RBC 2.79 L Hgb 8.2 L Hct 24.6 L MCV MCH MCHC RDW 18.5 H Plt Count 95 L Lymph % (Auto) [place] % (Auto) Eos % (Auto) Lymph # [place] # Eos # Seg Neutrophils % Seg Neuts % (Manual) Lymphocytes % (Manual) Monocytes % (Manual) Eosinophils % (Manual) Nucleated RBC % Seg Neutrophils # Seg Neutrophils # Man Lymphocytes # (Manual) Monocytes # (Manual) Eosinophils # (Manual) PT INR APTT Fibrinogen 194 L POC ABG pH ABG pH POC ABG pCO2 POC ABG pO2 ABG pO2 ABG HCO3 ABG O2 Saturation ABG Base Excess ABG Hemoglobin Oxyhemoglobin Sodium Potassium Chloride Carbon Dioxide BUN Creatinine Glucose POC Glucose 224 H Uric Acid Calcium Phosphorus Magnesium AST ALT Total Creatine Kinase CK-MB (CK-2) Troponin T NT-Pro-B Natriuret Pep Total Protein Albumin Triglycerides HDL Cholesterol Urine WBC (Auto) Urine Creatinine Urine Total Protein Vancomycin Trough 06/17/19 06/17/19 18:41 Unknown WBC RBC Hgb Hct MCV MCH MCHC RDW Plt Count Lymph % (Auto) [place] % (Auto) Eos % (Auto) Lymph # [place] # Eos # Seg Neutrophils % Seg Neuts % (Manual) Lymphocytes % (Manual) Monocytes % (Manual) Eosinophils % (Manual) Nucleated RBC % Seg Neutrophils # Seg Neutrophils # Man Lymphocytes # (Manual) Monocytes # (Manual) Eosinophils # (Manual) PT INR APTT Fibrinogen POC ABG pH ABG pH 7.564 H POC ABG pCO2 POC ABG pO2 ABG pO2 238.6 H ABG HCO3 33.6 H ABG O2 Saturation 99.4 H ABG Base Excess 10.6 H ABG Hemoglobin 7.9 L Oxyhemoglobin Sodium Potassium Chloride Carbon Dioxide BUN Creatinine Glucose POC Glucose 198 H Uric Acid Calcium Phosphorus Magnesium AST ALT Total Creatine Kinase CK-MB (CK-2) Troponin T NT-Pro-B Natriuret Pep Total Protein Albumin Triglycerides HDL Cholesterol Urine WBC (Auto) Urine Creatinine Urine Total Protein Vancomycin Trough Chest x-ray: report reviewed, image reviewed
[2019-06-17] MEDS: INSULIN GLARGINE 100 UNITS/ML SUB-Q SCH (22:11)
--- NOTE | 2019-06-18 02:56 | XRay Report ---
CHEST 1 VIEW INDICATION: follow up respiratory failure. COMPARISON: One day prior. FINDINGS: Support devices: Unchanged. Heart: Stable. Lungs/Pleura: There is worsening atelectasis in the right lower lobe. Left lung is essentially clear. IMPRESSION: 1. Worsening atelectasis in the right lower lobe. Signer Name: Juancarlos Kohli MD Signed: 06/18/2019 2:51 AM Workstation Name: [id number]
[2019-06-18] MEDS: methylPREDNISolone Sod Succinate 40 MG/1 ML INJ IV SCH ×4 (03:30→17:19)
[2019-06-18 04:19] LABS: ABG Base Excess 8.5 mmol/L (-2.0-3.0); ABG HCO3 32.5 mmol/L (20.0-26.0); ABG Methemoglobin 0.6 % (0.0-1.5); ABG Oxygen Saturation 98.7 % (95.0-99.0); ABG PCO2 42.8 mm Hg; ABG PH 7.499 pH Units (7.350-7.450); ABG PO2 130.8 mm Hg (80.0-90.0)
[2019-06-18] MEDS: CEFEPIME/NS 2 GM/100 ML 2 GM/100 ML BAG IV SCH ×3 (05:00→21:34)
[2019-06-18] MEDS: INSULIN LISPRO 100 UNIT/ML SUB-Q SCH ×5 (05:21→23:37)
[2019-06-18 05:39] LABS: Basophils % (Auto) 0.3 % (0.0-1.8); Eosinophils # (Auto) 0.1 K/mm3 (0.0-0.4); Eosinophils % (Auto) 1.7 % (0.0-4.3); Hematocrit 22.9 % (35.5-45.6); Hemoglobin 7.4 gm/dl (11.8-15.2); Lymphocytes # (Auto) 1.1 K/mm3 (1.2-5.4); Lymphocytes % (Auto) 12.9 % (13.4-35.0); Mean Corpuscular HGB Conc 32 % (32-34); Mean Corpuscular Volume 88 fl (84-94); Monocytes # (Auto) 0.7 K/mm3 (0.0-0.8); Monocytes % (Auto) 7.7 % (0.0-7.3); Red Blood Count 2.61 M/mm3 (3.65-5.03); Red Cell Distribution Width 19.9 % (13.2-15.2)
[2019-06-18 05:41] LABS: Platelet Count 81 K/mm3 (140-440)
[2019-06-18 06:01] LABS: BUN/Creatinine Ratio 60; Blood Urea Nitrogen 66 mg/dL (9-20); Calcium 9.4 mg/dL (8.4-10.2); Hemolysis Index 3
--- NOTE | 2019-06-18 09:57 | Progress Note ---
Assessment and Plan Assessment and plan: 34-year-old man with morbid obesity was brought to the hospital for shortness of breath and insomnia. He was found to have severe hypoxia and bradycardia who then became pulseless, he was cyanotic and he was intubated after receiving CPR with 2 rounds of epinephrine. Hypertensive emergency cont bp meds off cardene drip since 06/13 Fever Flu neg, UA neg, cxr no infiltrate, BC in progress ID consult, monitor off abx Acute respiratory failure with hypoxia and hypercapnia on mechanical ventilator greater than 96 hours -Obesity hypoventilation Patient extubated 06/07 after being on the ventilator for 37 days, now reintubat ed on 06/16 plan for trache/peg, dw GS Status post cardiac arrest anoxic/ischemic brain injury Patient's mentation is improved ., EEG was negative for seizures and neurology consult appreciated. Severe malnutrition Dysphasia; dw with his mom, she is agreeable to PEG tube, GS consulted -Dietitian input appreciated, continue tube feeds Anemia of chronic disease; transfuse to keep hemoglobin above 7, iron supplements Thrombocytopenia; worsening, question if this is HIT. Will send HIT labs, hold Lovenox, hematology consult Acute kidney injury due to ATN Dialysis now put on hold, kidney function improving Nephrology input appreciated, tolerating diuretics -PC will be dc by neph if continues to improve Fluid overload Continue diuretics, being dosed by ramp service agent hypernatremia; restart d5w judiciously hypokalemia; replete Morbid obesity; will need weight loss program upon discharge DVT prophylaxis; scd for now Disposition; does not have a pay source for rehab, therefore home with home health services CCT 33 minutes JOHANNA is janna Alexander [phone] History Interval history: Low-grade fever No vomiting no seizure-like activity No diarrhea No agitation No obvious discomfort Hospitalist Physical - Physical exam Narrative exam: General.: Morbidly obese HEENT: Moist mucous membranes, extraocular muscles intact, no lymphadenopathy Neck: supple Cardiac: S1-S2 heard Lungs: clear to auscultation bilaterally Abdomen: soft , nontender, nondistended, bowel sounds positive Extremities: edema in all extremities Skin: no rash or lesions Neurologic: He is awake and alert. He is currently nonverbal. But he nods and shakes his head. He obeys commands, intubated Psych: calm, - Constitutional Vitals: Temp Pulse Resp BP Pulse Ox 99.1 F 95 H 16 154/74 98 06/18/19 03:20 06/18/19 09:04 06/18/19 07:00 06/18/19 09:04 06/18/19 09:04 General appearance: Present: no acute distress Results - Labs CBC & Chem 7: 06/18/19 05:25 06/18/19 04:25 Labs: Laboratory Last Values WBC 8.6 K/mm3 (4.5-11.0) 06/18/19 05:25 RBC 2.61 M/mm3 (3.65-5.03) L 06/18/19 05:25 Hgb 7.4 gm/dl (11.8-15.2) L 06/18/19 05:25 Hct 22.9 % (35.5-45.6) L 06/18/19 05:25 MCV 88 fl (84-94) 06/18/19 05:25 MCH 28 pg (28-32) 06/18/19 05:25 MCHC 32 % (32-34) 06/18/19 05:25 RDW 19.9 % (13.2-15.2) H 06/18/19 05:25 Plt Count 81 K/mm3 (140-440) L 06/18/19 05:25 Lymph % (Auto) 12.9 % (13.4-35.0) L 06/18/19 05:25 [place] % (Auto) 7.7 % (0.0-7.3) H 06/18/19 05:25 Eos % (Auto) 1.7 % (0.0-4.3) 06/18/19 05:25 Baso % (Auto) 0.3 % (0.0-1.8) 06/18/19 05:25 Lymph # 1.1 K/mm3 (1.2-5.4) L 06/18/19 05:25 [place] # 0.7 K/mm3 (0.0-0.8) 06/18/19 05:25 Eos # 0.1 K/mm3 (0.0-0.4) 06/18/19 05:25 Baso # 0.0 K/mm3 (0.0-0.1) 06/18/19 05:25 Add Manual Diff Complete 06/16/19 05:00 Total Counted 100 06/16/19 05:00 Seg Neutrophils % 77.4 % (40.0-70.0) H 06/18/19 05:25 Seg Neuts % (Manual) 92.0 % (40.0-70.0) H 06/16/19 05:00 Band Neutrophils % 0 % 06/16/19 05:00 Lymphocytes % (Manual) 2.0 % (13.4-35.0) L 06/16/19 05:00 Reactive Lymphs % (Man) 0 % 06/16/19 05:00 Monocytes % (Manual) 6.0 % (0.0-7.3) 06/16/19 05:00 Eosinophils % (Manual) 0 % (0.0-4.3) 06/16/19 05:00 Basophils % (Manual) 0 % (0.0-1.8) 06/16/19 05:00 Metamyelocytes % 0 % 06/16/19 05:00 Myelocytes % 0 % 06/16/19 05:00 Promyelocytes % 0 % 06/16/19 05:00 Blast Cells % 0 % 06/16/19 05:00 Nucleated RBC % Not Reportable 06/16/19 05:00 Seg Neutrophils # 6.7 K/mm3 (1.8-7.7) 06/18/19 05:25 Seg Neutrophils # Man 10.9 K/mm3 (1.8-7.7) H 06/16/19 05:00 Band Neutrophils # 0.0 K/mm3 06/16/19 05:00 Lymphocytes # (Manual) 0.2 K/mm3 (1.2-5.4) L 06/16/19 05:00 Abs React Lymphs (Man) 0.0 K/mm3 06/16/19 05:00 Monocytes # (Manual) 0.7 K/mm3 (0.0-0.8) 06/16/19 05:00 Eosinophils # (Manual) 0.0 K/mm3 (0.0-0.4) 06/16/19 05:00 Basophils # (Manual) 0.0 K/mm3 (0.0-0.1) 06/16/19 05:00 Metamyelocytes # 0.0 K/mm3 06/16/19 05:00 Myelocytes # 0.0 K/mm3 06/16/19 05:00 Promyelocytes # 0.0 K/mm3 06/16/19 05:00 Blast Cells # 0.0 K/mm3 06/16/19 05:00 WBC Morphology Not Reportable 06/16/19 05:00 Hypersegmented Neuts Not Reportable 06/16/19 05:00 Hyposegmented Neuts Not Reportable 06/16/19 05:00 Hypogranular Neuts Not Reportable 06/16/19 05:00 Smudge Cells Not Reportable 06/16/19 05:00 Toxic Granulation Not Reportable 06/16/19 05:00 Toxic Vacuolation Not Reportable 06/16/19 05:00 Dohle Bodies Not Reportable 06/16/19 05:00 Pelger-Huet Anomaly Not Reportable 06/16/19 05:00 Renea Rods Not Reportable 06/16/19 05:00 Platelet Estimate Consistent w auto 06/16/19 05:00 Clumped Platelets Not Reportable 06/16/19 05:00 Plt Clumps, EDTA Not Reportable 06/16/19 05:00 Large Platelets Not Reportable 06/16/19 05:00 Giant Platelets Not Reportable 06/16/19 05:00 Platelet Satelliting Not Reportable 06/16/19 05:00 Plt Morphology Comment Not Reportable 06/16/19 05:00 RBC Morphology Not Reportable 06/16/19 05:00 Dimorphic RBCs Not Reportable 06/16/19 05:00 Polychromasia Not Reportable 06/16/19 05:00 Hypochromasia Not Reportable 06/16/19 05:00 Poikilocytosis Not Reportable 06/16/19 05:00 Anisocytosis Not Reportable 06/16/19 05:00 Microcytosis Not Reportable 06/16/19 05:00 Macrocytosis Not Reportable 06/16/19 05:00 Spherocytes Not Reportable 06/16/19 05:00 Pappenheimer Bodies Not Reportable 06/16/19 05:00 Sickle Cells Not Reportable 06/16/19 05:00 Target Cells Not Reportable 06/16/19 05:00 Tear Drop Cells Not Reportable 06/16/19 05:00 Ovalocytes Not Reportable 06/16/19 05:00 Stomatocytes Few 06/16/19 05:00 Helmet Cells Not Reportable 06/16/19 05:00 [place] Bodies Not Reportable 06/16/19 05:00 [place] Rings Not Reportable 06/16/19 05:00 [place] Cells Not Reportable 06/16/19 05:00 Bite Cells Not Reportable 06/16/19 05:00 Crenated Cell Not Reportable 06/16/19 05:00 Elliptocytes Not Reportable 06/16/19 05:00 Acanthocytes (Spur) Not Reportable 06/16/19 05:00 Rouleaux Not Reportable 06/16/19 05:00 Hemoglobin C Crystals Not Reportable 06/16/19 05:00 Schistocytes Not Reportable 06/16/19 05:00 Malaria parasites Not Reportable 06/16/19 05:00 Syed Bodies Not Reportable 06/16/19 05:00 Hem Pathologist Commnt No 06/16/19 05:00 PT 15.4 Sec. (12.2-14.9) H 05/01/19 Unknown INR 1.23 (0.87-1.13) H 05/01/19 Unknown APTT 22.7 Sec. (24.2-36.6) L 05/01/19 Unknown Fibrinogen 194 mg/dl (211-480) L 06/17/19 12:45 POC ABG pH 7.462 (7.35-7.45) H 06/05/19 03:52 ABG pH 7.499 pH Units (7.350-7.450) H 06/18/19 03:50 POC ABG pCO2 39.8 (35-45) 06/05/19 03:52 ABG pCO2 42.8 mm Hg 06/18/19 03:50 POC ABG pO2 86 (80-105) 06/05/19 03:52 ABG pO2 130.8 mm Hg (80.0-90.0) H 06/18/19 03:50 POC ABG HCO3 28.4 (22-26 mml/L) 06/05/19 03:52 ABG HCO3 32.5 mmol/L (20.0-26.0) H 06/18/19 03:50 POC ABG Total CO2 30 (23-27mmol/L) 06/05/19 03:52 POC ABG O2 Sat 97 06/05/19 03:52 ABG O2 Saturation 98.7 % (95.0-99.0) 06/18/19 03:50 ABG O2 Content 12.2 (0.0-44) 06/18/19 03:50 POC ABG Base Excess 5 ((-2) - (+3)mmol/L) 06/05/19 03:52 ABG Base Excess 8.5 mmol/L (-2.0-3.0) H 06/18/19 03:50 ABG Hemoglobin 8.8 gm/dl (14.0-18.0) L 06/18/19 03:50 ABG Carboxyhemoglobin 1.3 % (0.0-5.0) 06/18/19 03:50 ABG Methemoglobin 0.6 % (0.0-1.5) 06/18/19 03:50 Oxyhemoglobin 96.8 % (95.0-99.0) 06/18/19 03:50 FiO2 40 % 06/18/19 03:50 Sodium 151 mmol/L (137-145) H 06/18/19 04:25 Potassium 3.4 mmol/L (3.6-5.0) L 06/18/19 04:25 Chloride 106.5 mmol/L (98-107) 06/18/19 04:25 Carbon Dioxide 28 mmol/L (22-30) 06/18/19 04:25 Anion Gap 20 mmol/L 06/18/19 04:25 BUN 66 mg/dL (9-20) H 06/18/19 04:25 Creatinine 1.1 mg/dL (0.8-1.5) 06/18/19 04:25 Estimated GFR > 60 ml/min 06/18/19 04:25 BUN/Creatinine Ratio 60 % 06/18/19 04:25 Glucose 189 mg/dL (75-100) H 06/18/19 04:25 POC Glucose 186 (70-105) H 06/18/19 05:27 Osmolality 327 Mosm/kg 05/07/19 13:45 Uric Acid 18.0 mg/dL (3.5-7.6) H 05/07/19 13:45 Calcium 9.4 mg/dL (8.4-10.2) 06/18/19 04:25 Phosphorus 3.70 mg/dL (2.5-4.5) 06/10/19 05:45 Magnesium 1.40 mg/dL (1.7-2.3) L 06/12/19 03:21 Total Bilirubin 0.50 mg/dL (0.1-1.2) 06/08/19 04:20 AST 23 units/L (5-40) 06/08/19 04:20 ALT 66 units/L (7-56) H 06/08/19 04:20 Alkaline Phosphatase 59 units/L (35-129) 06/08/19 04:20 Total Creatine Kinase 131 units/L (55-170) 05/02/19 04:41 CK-MB (CK-2) 5.2 ng/mL (0.0-4.0) H 05/02/19 04:41 CK-MB (CK-2) Rel Index 3.9 (0-4) 05/02/19 04:41 Troponin T 0.067 ng/mL (0.00-0.029) H D 05/02/19 04:41 NT-Pro-B Natriuret Pep 6831 pg/mL (0-450) H 05/01/19 Unknown Total Protein 5.5 g/dL (6.3-8.2) L 06/08/19 04:20 Albumin 2.9 g/dL (3.9-5) L 06/08/19 04:20 Albumin/Globulin Ratio 1.1 % 06/08/19 04:20 Triglycerides 173 mg/dL (2-149) H 05/17/19 Unknown Cholesterol 173 mg/dL (50-199) 05/02/19 00:06 LDL Cholesterol Direct 126 mg/dL (50-130) 05/02/19 00:06 HDL Cholesterol 18 mg/dL (40-59) L 05/02/19 00:06 Cholesterol/HDL Ratio 9.61 % 05/02/19 00:06 Procalcitonin 0.05 ng/mL (<0.15) 06/17/19 12:45 Urine Color Yellow (Yellow) 06/17/19 12:45 Urine Turbidity Slightly-cloudy (Clear) 06/17/19 12:45 Urine pH 5.0 (5.0-7.0) 06/17/19 12:45 Ur Specific [place] 1.013 (1.003-1.030) 06/17/19 12:45 Urine Protein <15 mg/dl mg/dL (Negative) 06/17/19 12:45 Urine Glucose (UA) Neg mg/dL (Negative) 06/17/19 12:45 Urine Ketones Neg mg/dL (Negative) 06/17/19 12:45 Urine Blood Sm (Negative) 06/17/19 12:45 Urine Nitrite Neg (Negative) 06/17/19 12:45 Urine Bilirubin Neg (Negative) 06/17/19 12:45 Urine Urobilinogen < 2.0 mg/dL (<2.0) 06/17/19 12:45 Ur Leukocyte Esterase Neg (Negative) 06/17/19 12:45 Urine WBC (Auto) 2.0 /HPF (0.0-6.0) 06/17/19 12:45 Urine RBC (Auto) 2.0 /HPF (0.0-6.0) 06/17/19 12:45 U Epithel Cells (Auto) < 1.0 /HPF (0-13.0) 06/17/19 12:45 Urine Bacteria (Auto) 1+ /HPF (Negative) 05/20/19 12:00 Uric Acid Crystals 3+ 05/03/19 10:55 Urine Mucus Few /HPF 06/17/19 12:45 Urine Yeast (Budding) 3+ /HPF 05/20/19 12:00 Urine Creatinine 292.8 mg/dL (0.1-20.0) H 05/07/19 22:40 Urine Sodium 11 mmol/L 05/07/19 22:40 Urine Total Protein 269 mg/dL (5-11.8) H 05/07/19 22:40 Vancomycin Trough 20.5 ug/mL (5.0-20.0) H 05/15/19 09:00 Random Vancomycin 11.5 ug/mL (0-40.0) 05/27/19 06:00 AMNA Screen Negative (Negative) 05/07/19 13:45 Hepatitis A IgM Ab Non-reactive (NonReactive) 05/07/19 13:45 Hep Bs Antigen Non-reactive (Negative) 05/07/19 13:45 Hep B Core IgM Ab Non-reactive (NonReactive) 05/07/19 13:45 Hepatitis C Antibody Non-reactive (NonReactive) 05/07/19 13:45 Influenza A (Rapid) Negative (Negative) 06/17/19 11:35 Influenza B (Rapid) Negative (Negative) 06/17/19 11:35 Active Medications - Current Medications Current Medications: Generic Name Dose Route Start Last Admin Trade Name Freq PRN Reason Stop Dose Admin Acetaminophen 650 mg 06/17/19 10:00 06/17/19 21:20 Tylenol PO 650 mg Q6H PRN Administration FOR TEMP >/=100.4 Lipase/Protease/Amylase 1 each 05/14/19 15:[address] 10,500 Unit FEEDTUBE PRN PRN For Clogged Feeding Tube Clonidine HCl 0.3 mg 06/06/19 20:00 06/13/19 20:28 Catapres-Tts Patch TD 0.3 mg Lao VICKEY Administration Dextrose 50 gm 05/01/19 20:24 D50w (25gm) Vial IV Q30MIN PRN Hypoglycemia Protocol Enoxaparin Sodium 40 mg 06/16/19 10:00 06/17/19 09:43 Enoxaparin SUB-Q 40 mg QDAY@1000 VICKEY Administration Famotidine 20 mg 06/17/19 10:00 06/17/19 21:45 Pepcid PO 20 mg BID VICKEY Administration Hydrophilic Ointment 1 applic 06/16/19 17:34 Vaseline Lip Therapy TP Q2HR PRN Dry Lips Propofol 1,000 mg in 100 mls @ 7.716 mls/hr 06/16/19 21:00 06/18/19 08:32 Diprivan 10 Mg/Ml IV 15 mcg/kg/min TITR VICKEY 23.148 mls/hr Administration Protocol 5 MCG/KG/MIN Cefepime HCl 2 gm in 100 mls @ 200 mls/hr 06/17/19 14:00 06/18/19 05:00 Cefepime/Ns 2 Gm/100 Ml IV 200 mls/hr Q8HR VICKEY Administration Protocol Fentanyl Citrate 2,000 mcg in 100 mls @ 12.86 mls/hr 06/17/19 14:00 Fentanyl Drip Premix IV TITR VICKEY Protocol 1 MCG/KG/HR Insulin Glargine 15 units 06/16/19 22:00 06/17/19 22:11 Lantus SUB-Q 15 units QHS VICKEY Administration Insulin Human Lispro 0 unit 06/01/19 14:00 06/18/19 05:21 Humalog SUB-Q 3 unit Q6HR VICKEY Administration Protocol Labetalol HCl 10 mg 06/11/19 22:48 06/16/19 19:47 Labetalol IV 10 mg Q4H PRN Administration BP >170/105; hold for HR <60 Labetalol HCl 200 mg 06/13/19 11:36 06/18/19 06:00 Labetalol PO Not Given Q8HR VICKEY Levetiracetam 750 mg 06/16/19 10:00 06/17/19 21:26 Keppra PO 750 mg BID VICKEY Administration Methylprednisolone Sodium Succinate 20 mg 06/14/19 18:00 06/18/19 03:30 Solu-Medrol IV 20 mg Q8H VICKEY Administration Minoxidil 2.5 mg 06/06/19 22:00 06/17/19 21:21 Loniten PO 2.5 mg BID VICKEY Administration Multi-Ingred Cream/Lotion/Oil/Oint 1 applic 06/16/19 18:00 Artificial Tears Ophth Oint OU Q4HR PRN Dry Eye(s) Simple Syrup 15 ml 05/14/19 15:01 Simple Syrup FEEDTUBE PRN PRN Hypoglycemia Simple Syrup 30 ml 05/14/19 15:01 Simple Syrup FEEDTUBE PRN PRN Hypoglycemia Sodium Bicarbonate 325 mg 05/14/19 15:01 Sodium Bicarbonate FEEDTUBE PRN PRN For Clogged Feeding Tube Nutrition/Malnutrition Assess - Dietary Evaluation Nutrition/Malnutrition Findings: Nutrition Notes Start: 05/04/19 12:54 Freq: Status: Active Protocol: Document 06/16/19 12:24 CW (Rec: 06/16/19 12:34 CW [id number]) Co-Sign 06/16/19 12:24 LP Nutrition Notes Initial or Follow up Reassessment Current Diagnosis Acute Kidney Injury,Sepsis, Respiratory Failure Other Pertinent Diagnosis HD Current Diet Nepro 1.8 at 50 ml/hr Labs/Tests BUN 49 BG 264 Cr 0.7 Pertinent Medications Humalog Solumedrol Height 6 ft 4 in Weight 257.2 kg Wallace Body Weight (kg) 91.81 BMI 69.0 Weight change and time frame No wt change noted Weight Status Morbidly Obese Subjective/Other Information F/U for diet advancement. Pt. failed swallow test per [employer]. PO not recommended. TF restarted and is being tolerated Percent of energy/protein needs met: 100%/43% Burn Absent Trauma Absent GI Symptoms None Current % PO Negligible Minimum of two criteria No physical signs of malnutrition #1 Nutrition Diagnosis Inadequate oral intake Diagnosis Progress(for reassessment Continues documentation) Is patient on ventilator? No Is Patient Ambulatory and/or Out of Bed No REE-([facility]-confined to bed) 4342.284 Kcal/Kg value to use for calculation 8 Approximate Energy Requirements Using 2057 kcal/Kg Calculation Used for Recommendations Kcal/kg Additional Notes PRO needs: 73 - 91 g (0.8 - 1 g/kg IBW) Fluid needs: 1 ml/kcal Nutrition Intervention Change Diet Order: Continue TF Nutrition Support: Nepro 1.8 at 50 ml/hr Flush with 250ml q4h Kcal 2,160 Protein (gm) 97 Fluid (mL) 872 Goal #1 TF tolerance [ End ] Goal #2 Meet at least 75% kcal/PRO needs via TF Anticipated Discharge Needs: Unable to determine at this time Follow-Up By: 06/23/19 Additional Comments F/U TF tolerance
[2019-06-18] MEDS: MINOXIDIL 2.5 MG TAB PO SCH ×2 (10:29→21:35)
[2019-06-18] MEDS: FAMOTIDINE 20 MG TAB PO SCH ×2 (10:29→21:31)
[2019-06-18] MEDS: levETIRAcetam 500 MG/5 ML ORAL LIQD PO SCH ×2 (10:29→21:34)
[2019-06-18] MEDS: DEXTROSE 5% IN WATER 1,000 ML IV SCH (10:30)
[2019-06-18] MEDS ORDERED: POTASSIUM CHLORIDE 20 MEQ PACKET FEEDTUBE ONE (12:00)
[2019-06-18] MEDS: FERROUS SULFATE 308 MG (62mg Elemental Iron) / 7 ML ELIXIR PO SCH (12:38)
--- NOTE | 2019-06-18 13:25 | Progress Note ---
Assessment and Plan Labs reviewed Imp: 1. Acute respiratory failure, hypoxia 2. A/C respiratory failure, hypercapnea 3. LANDON/OHS/Morbid obesity 4. CARLA 5. Pulm HTN 6. Sepsis -> ? Pneumonia, ? Meningitis 7. Seizures 8. SIRS 9. Thrombocytopenia 10. Hypernatremia Rec: 1. Propofol/Fentanyl as needed to keep him lightly sedated 2. Consult surgery for trach/PEG as he cannot protect his airway; trach should be permanent and ultimately left uncapped at night to treat probable LANDON 3. Control BP with PO meds; hold diuretics; agree with gentle D5W and monitor sodium 4. Cont. TFs 5. Given fever and thrombocytopenia, concerned about bacteremia; obtained blood, urine, sputum cultures and started empiric Vanco/Cefipime pending results 6. Check HIT; hold Lovenox for now; SCDs are in place 7. Prognosis remains guarded to poor 8. Complex decision-making No family present Subjective Date of service: 06/18/19 Principal diagnosis: HF; acute hypoxemic resp failure, SIRS, CARLA Interval history: No events. PEEP down to 10. Awake, alert. Follows commands. Active Medications Acetaminophen (Tylenol) 650 mg PO Q6H PRN PRN Reason: FOR TEMP >/=100.4 Last Admin: 06/17/19 21:20 Dose: 650 mg Documented by: Lipase/Protease/Amylase (German Fletcher 10,500 Unit) 1 each FEEDTUBE PRN PRN PRN Reason: For Clogged Feeding Tube Clonidine HCl (Catapres-Tts Patch) 0.3 mg TD Lao [facility] Last Admin: 06/13/19 20:28 Dose: 0.3 mg Documented by: Dextrose (D50w (25gm) Vial) 50 gm IV Q30MIN PRN; Protocol PRN Reason: Hypoglycemia Famotidine (Pepcid) 20 mg PO BID [facility] Last Admin: 06/18/19 10:29 Dose: 20 mg Documented by: Ferrous Sulfate (Ferrous Sulfate) 308 mg PO QDAY [facility] Last Admin: 06/18/19 12:38 Dose: 308 mg Documented by: Hydrophilic Ointment (Vaseline Lip Therapy) 1 applic TP Q2HR PRN PRN Reason: Dry Lips Propofol (Diprivan 10 Mg/Ml) 1,000 mg in 100 mls @ 7.716 mls/hr IV TITR [facility]; Protocol Last Admin: 06/18/19 12:42 Dose: 15 mcg/kg/min, 23.148 mls/hr Documented by: Cefepime HCl (Cefepime/Ns 2 Gm/100 Ml) 2 gm in 100 mls @ 200 mls/hr IV Q8HR [facility]; Protocol Last Admin: 06/18/19 05:00 Dose: 200 mls/hr Documented by: Fentanyl Citrate (Fentanyl Drip Premix) 2,000 mcg in 100 mls @ 12.86 mls/hr IV TITR [facility]; Protocol Dextrose (D5w) 1,000 mls @ 75 mls/hr IV DIRECT [facility] Last Admin: 06/18/19 10:30 Dose: 42 mls/hr Documented by: Insulin Glargine (Lantus) 15 units SUB-Q QHS [facility] Last Admin: 06/17/19 22:11 Dose: 15 units Documented by: Insulin Human Lispro (Humalog) 0 unit SUB-Q Q6HR [facility]; Protocol Last Admin: 06/18/19 12:38 Dose: 6 unit Documented by: Labetalol HCl (Labetalol) 10 mg IV Q4H PRN PRN Reason: BP >170/105; hold for HR <60 Last Admin: 06/16/19 19:47 Dose: 10 mg Documented by: Labetalol HCl (Labetalol) 200 mg PO Q8HR [facility] Last Admin: 06/18/19 06:00 Dose: Not Given Documented by: Levetiracetam (Keppra) 750 mg PO BID [facility] Last Admin: 06/18/19 10:29 Dose: 750 mg Documented by: Methylprednisolone Sodium Succinate (Solu-Medrol) 20 mg IV Q8H [facility] Last Admin: 06/18/19 10:36 Dose: 20 mg Documented by: Minoxidil (Loniten) 2.5 mg PO BID [facility] Last Admin: 06/18/19 10:29 Dose: 2.5 mg Documented by: Multi-Ingred Cream/Lotion/Oil/Oint (Artificial Tears Ophth Oint) 1 applic OU Q4HR PRN PRN Reason: Dry Eye(s) Simple Syrup (Simple Syrup) 15 ml FEEDTUBE PRN PRN PRN Reason: Hypoglycemia Simple Syrup (Simple Syrup) 30 ml FEEDTUBE PRN PRN PRN Reason: Hypoglycemia Sodium Bicarbonate (Sodium Bicarbonate) 325 mg FEEDTUBE PRN PRN PRN Reason: For Clogged Feeding Tube Objective Vital Signs - 12hr 06/18/19 06/18/19 06/18/19 01:30 01:45 02:00 Temperature Pulse Rate 96 H 96 H 96 H Respiratory 20 13 17 Rate Blood Pressure 134/46 146/64 148/61 O2 Sat by Pulse 100 100 Oximetry 06/18/19 06/18/19 06/18/19 02:08 02:15 02:30 Temperature Pulse Rate 98 H 98 H 96 H Respiratory 20 14 Rate Blood Pressure 148/68 144/56 O2 Sat by Pulse 100 100 100 Oximetry 06/18/19 06/18/19 06/18/19 02:45 03:00 03:15 Temperature Pulse Rate 95 H 90 87 Respiratory 14 20 20 Rate Blood Pressure 131/56 115/42 121/46 O2 Sat by Pulse 100 99 99 Oximetry 06/18/19 06/18/19 06/18/19 03:20 03:30 03:45 Temperature 99.1 F Pulse Rate 86 94 H Respiratory 20 18 Rate Blood Pressure 119/46 138/63 O2 Sat by Pulse 99 100 Oximetry 06/18/19 06/18/19 06/18/19 04:00 04:15 04:25 Temperature Pulse Rate 98 H 101 H Respiratory 17 17 Rate Blood Pressure 138/63 137/54 O2 Sat by Pulse 100 100 100 Oximetry 06/18/19 06/18/19 06/18/19 04:30 04:45 05:00 Temperature Pulse Rate 97 H 94 H 97 H Respiratory 10 L 15 15 Rate Blood Pressure 126/53 137/56 130/53 O2 Sat by Pulse 99 98 98 Oximetry 06/18/19 06/18/19 06/18/19 05:15 05:30 05:32 Temperature Pulse Rate 96 H 97 H 97 H Respiratory 13 15 Rate Blood Pressure 132/52 131/59 O2 Sat by Pulse 99 100 100 Oximetry 06/18/19 06/18/19 06/18/19 05:45 06:00 06:15 Temperature Pulse Rate 92 H 96 H 92 H Respiratory 16 11 L 16 Rate Blood Pressure 137/58 127/67 118/42 O2 Sat by Pulse 97 96 98 Oximetry 06/18/19 06/18/19 06/18/19 06:30 06:45 07:00 Temperature Pulse Rate 89 87 87 Respiratory 16 16 16 Rate Blood Pressure 117/44 120/46 116/46 O2 Sat by Pulse 96 96 97 Oximetry 06/18/19 06/18/19 06/18/19 07:15 07:30 07:46 Temperature Pulse Rate 94 H 102 H 98 H Respiratory 16 13 16 Rate Blood Pressure 157/83 124/71 124/71 O2 Sat by Pulse 99 98 98 Oximetry 06/18/19 06/18/19 06/18/19 08:00 08:20 08:30 Temperature 100.1 F H Pulse Rate 95 H 99 H 98 H Respiratory 12 22 14 Rate Blood Pressure 124/71 124/71 124/71 O2 Sat by Pulse 97 100 Oximetry 06/18/19 06/18/19 06/18/19 08:46 09:00 09:04 Temperature Pulse Rate 99 H 96 H 95 H Respiratory 14 9 L Rate Blood Pressure 97/35 154/74 154/74 O2 Sat by Pulse 97 98 Oximetry 06/18/19 06/18/19 06/18/19 09:15 09:30 09:45 Temperature Pulse Rate 88 90 88 Respiratory 11 L 7 L 16 Rate Blood Pressure 152/61 128/50 128/47 O2 Sat by Pulse 97 96 95 Oximetry 06/18/19 06/18/19 06/18/19 10:00 10:15 10:30 Temperature Pulse Rate 88 87 97 H Respiratory 16 16 19 Rate Blood Pressure 130/54 135/61 143/78 O2 Sat by Pulse 96 98 98 Oximetry 06/18/19 06/18/19 06/18/19 10:45 11:00 11:15 Temperature Pulse Rate 95 H 95 H 88 Respiratory 16 14 14 Rate Blood Pressure 134/60 133/58 141/63 O2 Sat by Pulse 98 100 100 Oximetry 06/18/19 06/18/19 06/18/19 11:30 11:45 12:00 Temperature Pulse Rate 88 89 93 H Respiratory 12 17 12 Rate Blood Pressure 116/43 132/62 136/57 O2 Sat by Pulse 98 98 Oximetry 06/18/19 06/18/19 06/18/19 12:15 12:30 12:45 Temperature Pulse Rate 91 H 93 H 90 Respiratory 17 9 L 15 Rate Blood Pressure 130/55 134/60 136/54 O2 Sat by Pulse 100 100 99 Oximetry 06/18/19 06/18/19 13:00 13:15 Temperature Pulse Rate 91 H 87 Respiratory 12 Rate Blood Pressure 132/51 139/52 O2 Sat by Pulse 99 100 Oximetry Constitutional: other (morbidly obese male, critically ill on vent) Eyes: non-icteric ENT: oropharynx moist Neck: other (extremely large in circumference) Effort: normal Ascultation: Bilateral: diminished breath sounds (secondary to body habitus) Cardiovascular: regular rate and rhythm (no mrg) Gastrointestinal: normoactive bowel sounds, soft, non-tender, other (obese) Integumentary: other (L hand is wrapped) Extremities: no cyanosis, pink and warm, other (1+ generalized edema) Neurologic: normal mental status, non-focal exam Psychiatric: mood appropriate, affect normal CBC and BMP: 06/18/19 05:25 06/18/19 04:25 ABG, PT/INR, D-dimer: ABG POC ABG pH 7.462 (7.35-7.45) H 06/05/19 03:52 ABG pH 7.499 pH Units (7.350-7.450) H 06/18/19 03:50 POC ABG pCO2 39.8 (35-45) 06/05/19 03:52 ABG pCO2 42.8 mm Hg 06/18/19 03:50 POC ABG pO2 86 (80-105) 06/05/19 03:52 ABG pO2 130.8 mm Hg (80.0-90.0) H 06/18/19 03:50 POC ABG HCO3 28.4 (22-26 mml/L) 06/05/19 03:52 POC ABG Total CO2 30 (23-27mmol/L) 06/05/19 03:52 POC ABG O2 Sat 97 06/05/19 03:52 ABG O2 Saturation 98.7 % (95.0-99.0) 06/18/19 03:50 PT/INR, D-dimer PT 15.4 Sec. (12.2-14.9) H 05/01/19 Unknown INR 1.23 (0.87-1.13) H 05/01/19 Unknown Abnormal lab findings: Abnormal Labs 05/01/19 05/01/19 05/01/19 17:50 19:26 22:36 WBC RBC Hgb Hct MCV MCH MCHC RDW Plt Count Lymph % (Auto) [place] % (Auto) Eos % (Auto) Lymph # [place] # Eos # Seg Neutrophils % Seg Neuts % (Manual) Lymphocytes % (Manual) Monocytes % (Manual) Eosinophils % (Manual) Nucleated RBC % Seg Neutrophils # Seg Neutrophils # Man Lymphocytes # (Manual) Monocytes # (Manual) Eosinophils # (Manual) PT INR APTT Fibrinogen POC ABG pH 7.272 L 7.331 L ABG pH POC ABG pCO2 52.8 H POC ABG pO2 ABG pO2 ABG HCO3 ABG O2 Saturation ABG Base Excess ABG Hemoglobin Oxyhemoglobin Sodium 136 L Potassium 6.5 H* Chloride 97.2 L Carbon Dioxide BUN 60 H Creatinine Glucose 113 H POC Glucose Uric Acid Calcium Phosphorus Magnesium 2.40 H AST 139 H ALT 154 H Total Creatine Kinase CK-MB (CK-2) Troponin T NT-Pro-B Natriuret Pep Total Protein Albumin 3.8 L Triglycerides HDL Cholesterol Urine WBC (Auto) Urine Creatinine Urine Total Protein Vancomycin Trough 05/01/19 05/01/19 05/01/19 Unknown Unknown Unknown WBC 16.1 H RBC Hgb Hct MCV MCH MCHC RDW 17.2 H Plt Count Lymph % (Auto) [place] % (Auto) 9.6 H Eos % (Auto) Lymph # [place] # 1.5 H Eos # Seg Neutrophils % 73.0 H Seg Neuts % (Manual) Lymphocytes % (Manual) Monocytes % (Manual) Eosinophils % (Manual) Nucleated RBC % Seg Neutrophils # 11.7 H Seg Neutrophils # Man Lymphocytes # (Manual) Monocytes # (Manual) Eosinophils # (Manual) PT 15.4 H INR 1.23 H APTT 22.7 L Fibrinogen POC ABG pH ABG pH POC ABG pCO2 POC ABG pO2 ABG pO2 ABG HCO3 ABG O2 Saturation ABG Base Excess ABG Hemoglobin Oxyhemoglobin Sodium Potassium Chloride Carbon Dioxide BUN Creatinine Glucose POC Glucose Uric Acid Calcium Phosphorus Magnesium AST ALT Total Creatine Kinase CK-MB (CK-2) Troponin T NT-Pro-B Natriuret Pep 6831 H Total Protein Albumin Triglycerides HDL Cholesterol Urine WBC (Auto) Urine Creatinine Urine Total Protein Vancomycin Trough 05/01/19 05/02/19 05/02/19 Unknown 00:06 00:06 WBC RBC Hgb Hct MCV MCH MCHC RDW Plt Count Lymph % (Auto) [place] % (Auto) Eos % (Auto) Lymph # [place] # Eos # Seg Neutrophils % Seg Neuts % (Manual) Lymphocytes % (Manual) Monocytes % (Manual) Eosinophils % (Manual) Nucleated RBC % Seg Neutrophils # Seg Neutrophils # Man Lymphocytes # (Manual) Monocytes # (Manual) Eosinophils # (Manual) PT INR APTT Fibrinogen POC ABG pH ABG pH POC ABG pCO2 POC ABG pO2 ABG pO2 ABG HCO3 ABG O2 Saturation ABG Base Excess ABG Hemoglobin Oxyhemoglobin Sodium Potassium Chloride Carbon Dioxide BUN Creatinine Glucose POC Glucose Uric Acid Calcium Phosphorus 4.90 H Magnesium AST ALT Total Creatine Kinase 226 H CK-MB (CK-2) 5.7 H Troponin T 0.044 H NT-Pro-B Natriuret Pep Total Protein Albumin Triglycerides 182 H HDL Cholesterol 18 L Urine WBC (Auto) Urine Creatinine Urine Total Protein Vancomycin Trough 05/02/19 05/02/19 05/02/19 02:08 04:40 04:41 WBC 17.6 H RBC Hgb Hct MCV MCH 27 L MCHC RDW 17.4 H Plt Count Lymph % (Auto) 10.2 L [place] % (Auto) 11.0 H Eos % (Auto) Lymph # [place] # 1.9 H Eos # Seg Neutrophils % 78.0 H Seg Neuts % (Manual) Lymphocytes % (Manual) Monocytes % (Manual) Eosinophils % (Manual) Nucleated RBC % Seg Neutrophils # 13.8 H Seg Neutrophils # Man Lymphocytes # (Manual) Monocytes # (Manual) Eosinophils # (Manual) PT INR APTT Fibrinogen POC ABG pH ABG pH POC ABG pCO2 46.8 H POC ABG pO2 63 L ABG pO2 ABG HCO3 ABG O2 Saturation ABG Base Excess ABG Hemoglobin Oxyhemoglobin Sodium Potassium Chloride 96.3 L Carbon Dioxide BUN 63 H Creatinine 1.7 H Glucose POC Glucose Uric Acid Calcium Phosphorus Magnesium AST ALT Total Creatine Kinase CK-MB (CK-2) Troponin T NT-Pro-B Natriuret Pep Total Protein Albumin Triglycerides HDL Cholesterol Urine WBC (Auto) Urine Creatinine Urine Total Protein Vancomycin Trough 05/02/19 05/02/19 05/02/19 04:41 04:41 16:05 WBC RBC Hgb Hct MCV MCH MCHC RDW Plt Count Lymph % (Auto) [place] % (Auto) Eos % (Auto) Lymph # [place] # Eos # Seg Neutrophils % Seg Neuts % (Manual) Lymphocytes % (Manual) Monocytes % (Manual) Eosinophils % (Manual) Nucleated RBC % Seg Neutrophils # Seg Neutrophils # Man Lymphocytes # (Manual) Monocytes # (Manual) Eosinophils # (Manual) PT INR APTT Fibrinogen POC ABG pH ABG pH POC ABG pCO2 POC ABG pO2 ABG pO2 66.6 L ABG HCO3 31.9 H ABG O2 Saturation 92.5 L ABG Base Excess 5.8 H ABG Hemoglobin 13.3 L Oxyhemoglobin 90.6 L Sodium Potassium Chloride 97.2 L Carbon Dioxide BUN 61 H Creatinine 1.8 H Glucose POC Glucose Uric Acid Calcium Phosphorus Magnesium AST ALT Total Creatine Kinase CK-MB (CK-2) 5.2 H Troponin T 0.067 H D NT-Pro-B Natriuret Pep Total Protein Albumin Triglycerides HDL Cholesterol Urine WBC (Auto) Urine Creatinine Urine Total Protein Vancomycin Trough 05/02/19 05/03/19 05/03/19 20:39 04:35 05:05 WBC 11.8 H RBC Hgb Hct MCV MCH 27 L MCHC 31 L RDW 17.2 H Plt Count Lymph % (Auto) [place] % (Auto) Eos % (Auto) Lymph # [place] # Eos # Seg Neutrophils % Seg Neuts % (Manual) Lymphocytes % (Manual) Monocytes % (Manual) Eosinophils % (Manual) Nucleated RBC % Seg Neutrophils # Seg Neutrophils # Man Lymphocytes # (Manual) Monocytes # (Manual) Eosinophils # (Manual) PT INR APTT Fibrinogen POC ABG pH ABG pH POC ABG pCO2 53.6 H 54.0 H POC ABG pO2 55 L 63 L ABG pO2 ABG HCO3 ABG O2 Saturation ABG Base Excess ABG Hemoglobin Oxyhemoglobin Sodium Potassium Chloride Carbon Dioxide BUN Creatinine Glucose POC Glucose Uric Acid Calcium Phosphorus Magnesium AST ALT Total Creatine Kinase CK-MB (CK-2) Troponin T NT-Pro-B Natriuret Pep Total Protein Albumin Triglycerides HDL Cholesterol Urine WBC (Auto) Urine Creatinine Urine Total Protein Vancomycin Trough 05/03/19 05/03/19 05/03/19 05:05 10:55 16:48 WBC RBC Hgb Hct MCV MCH MCHC RDW Plt Count Lymph % (Auto) [place] % (Auto) Eos % (Auto) Lymph # [place] # Eos # Seg Neutrophils % Seg Neuts % (Manual) Lymphocytes % (Manual) Monocytes % (Manual) Eosinophils % (Manual) Nucleated RBC % Seg Neutrophils # Seg Neutrophils # Man Lymphocytes # (Manual) Monocytes # (Manual) Eosinophils # (Manual) PT INR APTT Fibrinogen POC ABG pH 7.604 H ABG pH POC ABG pCO2 POC ABG pO2 58 L ABG pO2 ABG HCO3 ABG O2 Saturation ABG Base Excess ABG Hemoglobin Oxyhemoglobin Sodium Potassium Chloride Carbon Dioxide BUN 52 H Creatinine 1.9 H Glucose 103 H POC Glucose Uric Acid Calcium Phosphorus Magnesium AST ALT Total Creatine Kinase CK-MB (CK-2) Troponin T NT-Pro-B Natriuret Pep Total Protein Albumin Triglycerides HDL Cholesterol Urine WBC (Auto) 33.0 H Urine Creatinine Urine Total Protein Vancomycin Trough 05/04/19 05/04/19 05/04/19 04:49 06:50 06:50 WBC 16.0 H RBC Hgb Hct MCV MCH 27 L MCHC 31 L RDW 17.8 H Plt Count Lymph % (Auto) [place] % (Auto) Eos % (Auto) Lymph # [place] # Eos # Seg Neutrophils % Seg Neuts % (Manual) Lymphocytes % (Manual) Monocytes % (Manual) Eosinophils % (Manual) Nucleated RBC % Seg Neutrophils # Seg Neutrophils # Man Lymphocytes # (Manual) Monocytes # (Manual) Eosinophils # (Manual) PT INR APTT Fibrinogen POC ABG pH 7.273 L ABG pH POC ABG pCO2 POC ABG pO2 ABG pO2 ABG HCO3 ABG O2 Saturation ABG Base Excess ABG Hemoglobin Oxyhemoglobin Sodium 148 H Potassium 5.5 H Chloride Carbon Dioxide BUN 53 H Creatinine 3.3 H D Glucose 106 H POC Glucose Uric Acid Calcium 8.3 L Phosphorus Magnesium AST ALT Total Creatine Kinase CK-MB (CK-2) Troponin T NT-Pro-B Natriuret Pep Total Protein Albumin Triglycerides HDL Cholesterol Urine WBC (Auto) Urine Creatinine Urine Total Protein Vancomycin Trough 05/05/19 05/05/19 05/05/19 00:05 04:30 05:00 WBC RBC Hgb Hct MCV MCH MCHC RDW Plt Count Lymph % (Auto) [place] % (Auto) Eos % (Auto) Lymph # [place] # Eos # Seg Neutrophils % Seg Neuts % (Manual) Lymphocytes % (Manual) Monocytes % (Manual) Eosinophils % (Manual) Nucleated RBC % Seg Neutrophils # Seg Neutrophils # Man Lymphocytes # (Manual) Monocytes # (Manual) Eosinophils # (Manual) PT INR APTT Fibrinogen POC ABG pH 7.225 L ABG pH POC ABG pCO2 > 70 H POC ABG pO2 ABG pO2 ABG HCO3 ABG O2 Saturation ABG Base Excess ABG Hemoglobin Oxyhemoglobin Sodium 151 H Potassium 5.1 H Chloride Carbon Dioxide BUN 64 H Creatinine 3.5 H Glucose 117 H POC Glucose 141 H Uric Acid Calcium 7.5 L Phosphorus Magnesium AST 93 H ALT 65 H Total Creatine Kinase CK-MB (CK-2) Troponin T NT-Pro-B Natriuret Pep Total Protein Albumin 2.9 L Triglycerides HDL Cholesterol Urine WBC (Auto) Urine Creatinine Urine Total Protein Vancomycin Trough 05/05/19 05/05/19 05/05/19 05:00 12:02 17:46 WBC 12.0 H RBC Hgb 11.3 L Hct MCV MCH 27 L MCHC 30 L RDW 18.4 H Plt Count Lymph % (Auto) 7.9 L [place] % (Auto) 10.2 H Eos % (Auto) Lymph # 1.0 L [place] # 1.2 H Eos # Seg Neutrophils % 80.8 H Seg Neuts % (Manual) Lymphocytes % (Manual) Monocytes % (Manual) Eosinophils % (Manual) Nucleated RBC % Seg Neutrophils # 9.7 H Seg Neutrophils # Man Lymphocytes # (Manual) Monocytes # (Manual) Eosinophils # (Manual) PT INR APTT Fibrinogen POC ABG pH ABG pH POC ABG pCO2 POC ABG pO2 ABG pO2 ABG HCO3 ABG O2 Saturation ABG Base Excess ABG Hemoglobin Oxyhemoglobin Sodium Potassium Chloride Carbon Dioxide BUN Creatinine Glucose POC Glucose 125 H 112 H Uric Acid Calcium Phosphorus Magnesium AST ALT Total Creatine Kinase CK-MB (CK-2) Troponin T NT-Pro-B Natriuret Pep Total Protein Albumin Triglycerides HDL Cholesterol Urine WBC (Auto) Urine Creatinine Urine Total Protein Vancomycin Trough 05/05/19 05/06/19 05/06/19 23:42 03:58 04:45 WBC 11.4 H RBC Hgb 10.7 L Hct 34.2 L MCV MCH 27 L MCHC 31 L RDW 16.9 H Plt Count Lymph % (Auto) [place] % (Auto) Eos % (Auto) Lymph # [place] # Eos # Seg Neutrophils % Seg Neuts % (Manual) Lymphocytes % (Manual) Monocytes % (Manual) Eosinophils % (Manual) Nucleated RBC % Seg Neutrophils # Seg Neutrophils # Man Lymphocytes # (Manual) Monocytes # (Manual) Eosinophils # (Manual) PT INR APTT Fibrinogen POC ABG pH ABG pH POC ABG pCO2 62.4 H POC ABG pO2 111 H ABG pO2 ABG HCO3 ABG O2 Saturation ABG Base Excess ABG Hemoglobin Oxyhemoglobin Sodium Potassium Chloride Carbon Dioxide BUN Creatinine Glucose POC Glucose 128 H Uric Acid Calcium Phosphorus Magnesium AST ALT Total Creatine Kinase CK-MB (CK-2) Troponin T NT-Pro-B Natriuret Pep Total Protein Albumin Triglycerides HDL Cholesterol Urine WBC (Auto) Urine Creatinine Urine Total Protein Vancomycin Trough 05/06/19 05/06/19 05/06/19 04:45 05:33 12:30 WBC RBC Hgb Hct MCV MCH MCHC RDW Plt Count Lymph % (Auto) [place] % (Auto) Eos % (Auto) Lymph # [place] # Eos # Seg Neutrophils % Seg Neuts % (Manual) Lymphocytes % (Manual) Monocytes % (Manual) Eosinophils % (Manual) Nucleated RBC % Seg Neutrophils # Seg Neutrophils # Man Lymphocytes # (Manual) Monocytes # (Manual) Eosinophils # (Manual) PT INR APTT Fibrinogen POC ABG pH ABG pH POC ABG pCO2 POC ABG pO2 ABG pO2 ABG HCO3 ABG O2 Saturation ABG Base Excess ABG Hemoglobin Oxyhemoglobin Sodium 149 H Potassium Chloride Carbon Dioxide 31 H BUN 67 H Creatinine 3.2 H Glucose 125 H POC Glucose 117 H 116 H Uric Acid Calcium 7.5 L Phosphorus Magnesium AST ALT Total Creatine Kinase CK-MB (CK-2) Troponin T NT-Pro-B Natriuret Pep Total Protein Albumin Triglycerides HDL Cholesterol Urine WBC (Auto) Urine Creatinine Urine Total Protein Vancomycin Trough 05/06/19 05/06/19 05/07/19 18:34 23:16 05:22 WBC RBC Hgb Hct MCV MCH MCHC RDW Plt Count Lymph % (Auto) [place] % (Auto) Eos % (Auto) Lymph # [place] # Eos # Seg Neutrophils % Seg Neuts % (Manual) Lymphocytes % (Manual) Monocytes % (Manual) Eosinophils % (Manual) Nucleated RBC % Seg Neutrophils # Seg Neutrophils # Man Lymphocytes # (Manual) Monocytes # (Manual) Eosinophils # (Manual) PT INR APTT Fibrinogen POC ABG pH ABG pH POC ABG pCO2 POC ABG pO2 ABG pO2 ABG HCO3 ABG O2 Saturation ABG Base Excess ABG Hemoglobin Oxyhemoglobin Sodium Potassium Chloride Carbon Dioxide BUN Creatinine Glucose POC Glucose 128 H 143 H 166 H Uric Acid Calcium Phosphorus Magnesium AST ALT Total Creatine Kinase CK-MB (CK-2) Troponin T NT-Pro-B Natriuret Pep Total Protein Albumin Triglycerides HDL Cholesterol Urine WBC (Auto) Urine Creatinine Urine Total Protein Vancomycin Trough 05/07/19 05/07/19 05/07/19 06:33 07:03 09:35 WBC RBC Hgb Hct MCV MCH MCHC RDW Plt Count Lymph % (Auto) [place] % (Auto) Eos % (Auto) Lymph # [place] # Eos # Seg Neutrophils % Seg Neuts % (Manual) Lymphocytes % (Manual) Monocytes % (Manual) Eosinophils % (Manual) Nucleated RBC % Seg Neutrophils # Seg Neutrophils # Man Lymphocytes # (Manual) Monocytes # (Manual) Eosinophils # (Manual) PT INR APTT Fibrinogen POC ABG pH 7.263 L 7.288 L ABG pH POC ABG pCO2 POC ABG pO2 51 L 56 L ABG pO2 ABG HCO3 ABG O2 Saturation ABG Base Excess ABG Hemoglobin Oxyhemoglobin Sodium Potassium Chloride Carbon Dioxide BUN 76 H Creatinine 3.2 H Glucose 147 H POC Glucose Uric Acid Calcium 7.9 L Phosphorus Magnesium AST ALT Total Creatine Kinase CK-MB (CK-2) Troponin T NT-Pro-B Natriuret Pep Total Protein Albumin Triglycerides HDL Cholesterol Urine WBC (Auto) Urine Creatinine Urine Total Protein Vancomycin Trough 05/07/19 05/07/19 05/07/19 09:35 12:17 13:45 WBC 13.4 H RBC Hgb 11.6 L Hct MCV MCH 27 L MCHC 31 L RDW 17.5 H Plt Count Lymph % (Auto) [place] % (Auto) Eos % (Auto) Lymph # [place] # Eos # Seg Neutrophils % Seg Neuts % (Manual) Lymphocytes % (Manual) Monocytes % (Manual) Eosinophils % (Manual) Nucleated RBC % Seg Neutrophils # Seg Neutrophils # Man Lymphocytes # (Manual) Monocytes # (Manual) Eosinophils # (Manual) PT INR APTT Fibrinogen POC ABG pH ABG pH POC ABG pCO2 POC ABG pO2 ABG pO2 ABG HCO3 ABG O2 Saturation ABG Base Excess ABG Hemoglobin Oxyhemoglobin Sodium Potassium Chloride Carbon Dioxide BUN Creatinine Glucose POC Glucose 130 H Uric Acid 18.0 H Calcium Phosphorus Magnesium AST ALT Total Creatine Kinase CK-MB (CK-2) Troponin T NT-Pro-B Natriuret Pep Total Protein Albumin Triglycerides HDL Cholesterol Urine WBC (Auto) Urine Creatinine Urine Total Protein Vancomycin Trough 05/07/19 05/07/19 05/08/19 17:39 22:40 05:06 WBC RBC Hgb Hct MCV MCH MCHC RDW Plt Count Lymph % (Auto) [place] % (Auto) Eos % (Auto) Lymph # [place] # Eos # Seg Neutrophils % Seg Neuts % (Manual) Lymphocytes % (Manual) Monocytes % (Manual) Eosinophils % (Manual) Nucleated RBC % Seg Neutrophils # Seg Neutrophils # Man Lymphocytes # (Manual) Monocytes # (Manual) Eosinophils # (Manual) PT INR APTT Fibrinogen POC ABG pH ABG pH POC ABG pCO2 POC ABG pO2 ABG pO2 ABG HCO3 ABG O2 Saturation ABG Base Excess ABG Hemoglobin Oxyhemoglobin Sodium Potassium Chloride Carbon Dioxide BUN Creatinine Glucose POC Glucose 116 H 148 H Uric Acid Calcium Phosphorus Magnesium AST ALT Total Creatine Kinase CK-MB (CK-2) Troponin T NT-Pro-B Natriuret Pep Total Protein Albumin Triglycerides HDL Cholesterol Urine WBC (Auto) Urine Creatinine 292.8 H Urine Total Protein 269 H Vancomycin Trough 05/08/19 05/08/19 05/08/19 05:32 11:28 13:48 WBC RBC Hgb Hct MCV MCH MCHC RDW Plt Count Lymph % (Auto) [place] % (Auto) Eos % (Auto) Lymph # [place] # Eos # Seg Neutrophils % Seg Neuts % (Manual) Lymphocytes % (Manual) Monocytes % (Manual) Eosinophils % (Manual) Nucleated RBC % Seg Neutrophils # Seg Neutrophils # Man Lymphocytes # (Manual) Monocytes # (Manual) Eosinophils # (Manual) PT INR APTT Fibrinogen POC ABG pH ABG pH POC ABG pCO2 45.4 H POC ABG pO2 64 L ABG pO2 ABG HCO3 ABG O2 Saturation ABG Base Excess ABG Hemoglobin Oxyhemoglobin Sodium Potassium Chloride Carbon Dioxide BUN 73 H Creatinine 2.7 H Glucose 127 H POC Glucose 107 H Uric Acid Calcium 7.6 L Phosphorus Magnesium AST ALT Total Creatine Kinase CK-MB (CK-2) Troponin T NT-Pro-B Natriuret Pep Total Protein Albumin Triglycerides HDL Cholesterol Urine WBC (Auto) Urine Creatinine Urine Total Protein Vancomycin Trough 05/08/19 05/09/19 05/09/19 17:48 04:50 04:53 WBC RBC 3.07 L Hgb 8.5 L D Hct 29.3 L D MCV 96 H MCH MCHC 29 L RDW 18.1 H Plt Count Lymph % (Auto) [place] % (Auto) Eos % (Auto) Lymph # [place] # Eos # Seg Neutrophils % Seg Neuts % (Manual) Lymphocytes % (Manual) Monocytes % (Manual) Eosinophils % (Manual) Nucleated RBC % Seg Neutrophils # Seg Neutrophils # Man Lymphocytes # (Manual) Monocytes # (Manual) Eosinophils # (Manual) PT INR APTT Fibrinogen POC ABG pH 7.316 L ABG pH POC ABG pCO2 66.0 H POC ABG pO2 69 L ABG pO2 ABG HCO3 ABG O2 Saturation ABG Base Excess ABG Hemoglobin Oxyhemoglobin Sodium Potassium Chloride Carbon Dioxide BUN Creatinine Glucose POC Glucose 155 H Uric Acid Calcium Phosphorus Magnesium AST ALT Total Creatine Kinase CK-MB (CK-2) Troponin T NT-Pro-B Natriuret Pep Total Protein Albumin Triglycerides HDL Cholesterol Urine WBC (Auto) Urine Creatinine Urine Total Protein Vancomycin Trough 05/09/19 05/09/19 05/09/19 05:46 07:24 12:10 WBC RBC Hgb Hct MCV MCH MCHC RDW Plt Count Lymph % (Auto) [place] % (Auto) Eos % (Auto) Lymph # [place] # Eos # Seg Neutrophils % Seg Neuts % (Manual) Lymphocytes % (Manual) Monocytes % (Manual) Eosinophils % (Manual) Nucleated RBC % Seg Neutrophils # Seg Neutrophils # Man Lymphocytes # (Manual) Monocytes # (Manual) Eosinophils # (Manual) PT INR APTT Fibrinogen POC ABG pH ABG pH POC ABG pCO2 POC ABG pO2 ABG pO2 ABG HCO3 ABG O2 Saturation ABG Base Excess ABG Hemoglobin Oxyhemoglobin Sodium Potassium Chloride Carbon Dioxide BUN 73 H Creatinine 2.4 H Glucose 153 H POC Glucose 123 H 148 H Uric Acid Calcium 8.2 L Phosphorus Magnesium AST 45 H ALT Total Creatine Kinase CK-MB (CK-2) Troponin T NT-Pro-B Natriuret Pep Total Protein 6.0 L Albumin 1.9 L Triglycerides HDL Cholesterol Urine WBC (Auto) Urine Creatinine Urine Total Protein Vancomycin Trough 05/09/19 05/09/19 05/10/19 18:23 23:26 04:52 WBC RBC Hgb Hct MCV MCH MCHC RDW Plt Count Lymph % (Auto) [place] % (Auto) Eos % (Auto) Lymph # [place] # Eos # Seg Neutrophils % Seg Neuts % (Manual) Lymphocytes % (Manual) Monocytes % (Manual) Eosinophils % (Manual) Nucleated RBC % Seg Neutrophils # Seg Neutrophils # Man Lymphocytes # (Manual) Monocytes # (Manual) Eosinophils # (Manual) PT INR APTT Fibrinogen POC ABG pH 7.305 L ABG pH POC ABG pCO2 62.6 H POC ABG pO2 ABG pO2 ABG HCO3 ABG O2 Saturation ABG Base Excess ABG Hemoglobin Oxyhemoglobin Sodium Potassium Chloride Carbon Dioxide BUN Creatinine Glucose POC Glucose 147 H 121 H Uric Acid Calcium Phosphorus Magnesium AST ALT Total Creatine Kinase CK-MB (CK-2) Troponin T NT-Pro-B Natriuret Pep Total Protein Albumin Triglycerides HDL Cholesterol Urine WBC (Auto) Urine Creatinine Urine Total Protein Vancomycin Trough 05/10/19 05/10/19 05/10/19 05:00 05:00 05:50 WBC RBC Hgb 10.3 L Hct 33.7 L MCV MCH 27 L MCHC 31 L RDW 17.0 H Plt Count Lymph % (Auto) [place] % (Auto) Eos % (Auto) Lymph # [place] # Eos # Seg Neutrophils % Seg Neuts % (Manual) Lymphocytes % (Manual) Monocytes % (Manual) Eosinophils % (Manual) Nucleated RBC % Seg Neutrophils # Seg Neutrophils # Man Lymphocytes # (Manual) Monocytes # (Manual) Eosinophils # (Manual) PT INR APTT Fibrinogen POC ABG pH ABG pH POC ABG pCO2 POC ABG pO2 ABG pO2 ABG HCO3 ABG O2 Saturation ABG Base Excess ABG Hemoglobin Oxyhemoglobin Sodium 147 H Potassium Chloride Carbon Dioxide BUN 70 H Creatinine 2.6 H Glucose 155 H POC Glucose 158 H Uric Acid Calcium 8.2 L Phosphorus Magnesium AST ALT Total Creatine Kinase CK-MB (CK-2) Troponin T NT-Pro-B Natriuret Pep Total Protein 6.1 L Albumin 2.5 L Triglycerides HDL Cholesterol Urine WBC (Auto) Urine Creatinine Urine Total Protein Vancomycin Trough 05/10/19 05/11/19 05/11/19 13:14 07:26 11:40 WBC RBC Hgb Hct MCV MCH MCHC RDW Plt Count Lymph % (Auto) [place] % (Auto) Eos % (Auto) Lymph # [place] # Eos # Seg Neutrophils % Seg Neuts % (Manual) Lymphocytes % (Manual) Monocytes % (Manual) Eosinophils % (Manual) Nucleated RBC % Seg Neutrophils # Seg Neutrophils # Man Lymphocytes # (Manual) Monocytes # (Manual) Eosinophils # (Manual) PT INR APTT Fibrinogen POC ABG pH ABG pH POC ABG pCO2 48.0 H POC ABG pO2 58 L ABG pO2 ABG HCO3 ABG O2 Saturation ABG Base Excess ABG Hemoglobin Oxyhemoglobin Sodium 147 H Potassium Chloride 107.2 H Carbon Dioxide BUN 67 H Creatinine 2.6 H Glucose 121 H POC Glucose 159 H Uric Acid Calcium Phosphorus Magnesium AST ALT Total Creatine Kinase CK-MB (CK-2) Troponin T NT-Pro-B Natriuret Pep Total Protein Albumin Triglycerides HDL Cholesterol Urine WBC (Auto) Urine Creatinine Urine Total Protein Vancomycin Trough 05/11/19 05/11/19 05/12/19 18:13 23:46 04:40 WBC RBC Hgb Hct MCV MCH MCHC RDW Plt Count Lymph % (Auto) [place] % (Auto) Eos % (Auto) Lymph # [place] # Eos # Seg Neutrophils % Seg Neuts % (Manual) Lymphocytes % (Manual) Monocytes % (Manual) Eosinophils % (Manual) Nucleated RBC % Seg Neutrophils # Seg Neutrophils # Man Lymphocytes # (Manual) Monocytes # (Manual) Eosinophils # (Manual) PT INR APTT Fibrinogen POC ABG pH ABG pH 7.264 L POC ABG pCO2 POC ABG pO2 ABG pO2 66.8 L ABG HCO3 31.0 H ABG O2 Saturation 92.0 L ABG Base Excess ABG Hemoglobin 10.3 L Oxyhemoglobin 90.1 L Sodium Potassium Chloride Carbon Dioxide BUN Creatinine Glucose POC Glucose 120 H 121 H Uric Acid Calcium Phosphorus Magnesium AST ALT Total Creatine Kinase CK-MB (CK-2) Troponin T NT-Pro-B Natriuret Pep Total Protein Albumin Triglycerides HDL Cholesterol Urine WBC (Auto) Urine Creatinine Urine Total Protein Vancomycin Trough 05/12/19 05/12/19 05/12/19 04:45 04:45 11:14 WBC RBC Hgb 10.2 L Hct 32.4 L MCV MCH MCHC 31 L RDW 17.2 H Plt Count Lymph % (Auto) [place] % (Auto) Eos % (Auto) Lymph # [place] # Eos # Seg Neutrophils % Seg Neuts % (Manual) Lymphocytes % (Manual) Monocytes % (Manual) Eosinophils % (Manual) Nucleated RBC % Seg Neutrophils # Seg Neutrophils # Man Lymphocytes # (Manual) Monocytes # (Manual) Eosinophils # (Manual) PT INR APTT Fibrinogen POC ABG pH 7.284 L ABG pH POC ABG pCO2 67.8 H POC ABG pO2 ABG pO2 ABG HCO3 ABG O2 Saturation ABG Base Excess ABG Hemoglobin Oxyhemoglobin Sodium Potassium Chloride Carbon Dioxide BUN 63 H Creatinine 2.4 H Glucose 110 H POC Glucose Uric Acid Calcium Phosphorus Magnesium AST ALT Total Creatine Kinase CK-MB (CK-2) Troponin T NT-Pro-B Natriuret Pep Total Protein Albumin Triglycerides HDL Cholesterol Urine WBC (Auto) Urine Creatinine Urine Total Protein Vancomycin Trough 05/12/19 05/12/19 05/13/19 11:44 23:11 04:30 WBC RBC Hgb Hct MCV MCH MCHC RDW Plt Count Lymph % (Auto) [place] % (Auto) Eos % (Auto) Lymph # [place] # Eos # Seg Neutrophils % Seg Neuts % (Manual) Lymphocytes % (Manual) Monocytes % (Manual) Eosinophils % (Manual) Nucleated RBC % Seg Neutrophils # Seg Neutrophils # Man Lymphocytes # (Manual) Monocytes # (Manual) Eosinophils # (Manual) PT INR APTT Fibrinogen POC ABG pH ABG pH 7.288 L POC ABG pCO2 POC ABG pO2 ABG pO2 109.7 H ABG HCO3 30.9 H ABG O2 Saturation ABG Base Excess 3.2 H ABG Hemoglobin 9.6 L Oxyhemoglobin Sodium Potassium Chloride Carbon Dioxide BUN Creatinine Glucose POC Glucose 126 H 147 H Uric Acid Calcium Phosphorus Magnesium AST ALT Total Creatine Kinase CK-MB (CK-2) Troponin T NT-Pro-B Natriuret Pep Total Protein Albumin Triglycerides HDL Cholesterol Urine WBC (Auto) Urine Creatinine Urine Total Protein Vancomycin Trough 05/13/19 05/13/19 05/14/19 06:27 11:58 04:00 WBC RBC 3.16 L Hgb 9.3 L Hct 27.9 L MCV MCH MCHC RDW 17.1 H Plt Count Lymph % (Auto) [place] % (Auto) Eos % (Auto) Lymph # [place] # Eos # Seg Neutrophils % Seg Neuts % (Manual) Lymphocytes % (Manual) Monocytes % (Manual) Eosinophils % (Manual) Nucleated RBC % Seg Neutrophils # Seg Neutrophils # Man Lymphocytes # (Manual) Monocytes # (Manual) Eosinophils # (Manual) PT INR APTT Fibrinogen POC ABG pH ABG pH POC ABG pCO2 POC ABG pO2 ABG pO2 ABG HCO3 ABG O2 Saturation ABG Base Excess ABG Hemoglobin Oxyhemoglobin Sodium Potassium Chloride Carbon Dioxide BUN Creatinine Glucose POC Glucose 113 H 130 H Uric Acid Calcium Phosphorus Magnesium AST ALT Total Creatine Kinase CK-MB (CK-2) Troponin T NT-Pro-B Natriuret Pep Total Protein Albumin Triglycerides HDL Cholesterol Urine WBC (Auto) Urine Creatinine Urine Total Protein Vancomycin Trough 05/14/19 05/14/19 05/14/19 04:00 04:34 05:32 WBC RBC Hgb Hct MCV MCH MCHC RDW Plt Count Lymph % (Auto) [place] % (Auto) Eos % (Auto) Lymph # [place] # Eos # Seg Neutrophils % Seg Neuts % (Manual) Lymphocytes % (Manual) Monocytes % (Manual) Eosinophils % (Manual) Nucleated RBC % Seg Neutrophils # Seg Neutrophils # Man Lymphocytes # (Manual) Monocytes # (Manual) Eosinophils # (Manual) PT INR APTT Fibrinogen POC ABG pH 7.328 L ABG pH POC ABG pCO2 61.7 H POC ABG pO2 ABG pO2 ABG HCO3 ABG O2 Saturation ABG Base Excess ABG Hemoglobin Oxyhemoglobin Sodium 135 L D Potassium Chloride Carbon Dioxide BUN 57 H Creatinine 2.2 H Glucose 115 H POC Glucose 115 H Uric Acid Calcium 8.1 L Phosphorus Magnesium AST ALT Total Creatine Kinase CK-MB (CK-2) Troponin T NT-Pro-B Natriuret Pep Total Protein Albumin Triglycerides HDL Cholesterol Urine WBC (Auto) Urine Creatinine Urine Total Protein Vancomycin Trough 05/14/19 05/15/19 05/15/19 12:11 05:10 05:24 WBC RBC Hgb Hct MCV MCH MCHC RDW Plt Count Lymph % (Auto) [place] % (Auto) Eos % (Auto) Lymph # [place] # Eos # Seg Neutrophils % Seg Neuts % (Manual) Lymphocytes % (Manual) Monocytes % (Manual) Eosinophils % (Manual) Nucleated RBC % Seg Neutrophils # Seg Neutrophils # Man Lymphocytes # (Manual) Monocytes # (Manual) Eosinophils # (Manual) PT INR APTT Fibrinogen POC ABG pH ABG pH 7.342 L POC ABG pCO2 POC ABG pO2 ABG pO2 79.1 L ABG HCO3 28.2 H ABG O2 Saturation ABG Base Excess ABG Hemoglobin 7.0 L Oxyhemoglobin 94.4 L Sodium Potassium Chloride Carbon Dioxide BUN Creatinine Glucose POC Glucose 110 H 116 H Uric Acid Calcium Phosphorus Magnesium AST ALT Total Creatine Kinase CK-MB (CK-2) Troponin T NT-Pro-B Natriuret Pep Total Protein Albumin Triglycerides HDL Cholesterol Urine WBC (Auto) Urine Creatinine Urine Total Protein Vancomycin Trough 05/15/19 05/15/19 05/16/19 09:00 18:12 04:50 WBC RBC Hgb Hct MCV MCH MCHC RDW Plt Count Lymph % (Auto) [place] % (Auto) Eos % (Auto) Lymph # [place] # Eos # Seg Neutrophils % Seg Neuts % (Manual) Lymphocytes % (Manual) Monocytes % (Manual) Eosinophils % (Manual) Nucleated RBC % Seg Neutrophils # Seg Neutrophils # Man Lymphocytes # (Manual) Monocytes # (Manual) Eosinophils # (Manual) PT INR APTT Fibrinogen POC ABG pH ABG pH 7.250 L POC ABG pCO2 POC ABG pO2 ABG pO2 76.4 L ABG HCO3 ABG O2 Saturation 94.6 L ABG Base Excess -3.1 L ABG Hemoglobin 9.7 L Oxyhemoglobin 92.4 L Sodium Potassium Chloride Carbon Dioxide BUN Creatinine Glucose POC Glucose 110 H Uric Acid Calcium Phosphorus Magnesium AST ALT Total Creatine Kinase CK-MB (CK-2) Troponin T NT-Pro-B Natriuret Pep Total Protein Albumin Triglycerides HDL Cholesterol Urine WBC (Auto) Urine Creatinine Urine Total Protein Vancomycin Trough 20.5 H 05/16/19 05/16/19 05/17/19 05:50 05:50 04:20 WBC RBC 3.36 L 3.44 L Hgb 9.4 L 9.3 L Hct 29.1 L 29.7 L MCV MCH 27 L MCHC 31 L RDW 17.6 H 17.6 H Plt Count Lymph % (Auto) [place] % (Auto) Eos % (Auto) Lymph # [place] # Eos # Seg Neutrophils % Seg Neuts % (Manual) 77.0 H Lymphocytes % (Manual) 5.0 L Monocytes % (Manual) Eosinophils % (Manual) 10.0 H Nucleated RBC % Seg Neutrophils # Seg Neutrophils # Man Lymphocytes # (Manual) 0.5 L Monocytes # (Manual) Eosinophils # (Manual) 0.9 H PT INR APTT Fibrinogen POC ABG pH ABG pH POC ABG pCO2 POC ABG pO2 ABG pO2 ABG HCO3 ABG O2 Saturation ABG Base Excess ABG Hemoglobin Oxyhemoglobin Sodium Potassium Chloride Carbon Dioxide BUN 83 H Creatinine 4.4 H D Glucose 118 H POC Glucose Uric Acid Calcium Phosphorus Magnesium AST ALT Total Creatine Kinase CK-MB (CK-2) Troponin T NT-Pro-B Natriuret Pep Total Protein Albumin Triglycerides HDL Cholesterol Urine WBC (Auto) Urine Creatinine Urine Total Protein Vancomycin Trough 05/17/19 05/17/19 05/18/19 04:30 Unknown 01:50 WBC RBC 3.49 L Hgb 9.4 L Hct 30.0 L MCV MCH 27 L MCHC 31 L RDW 17.8 H Plt Count Lymph % (Auto) 7.9 L [place] % (Auto) 15.4 H Eos % (Auto) 6.3 H Lymph # 0.7 L [place] # 1.4 H Eos # 0.6 H Seg Neutrophils % 70.2 H Seg Neuts % (Manual) Lymphocytes % (Manual) Monocytes % (Manual) Eosinophils % (Manual) Nucleated RBC % Seg Neutrophils # Seg Neutrophils # Man Lymphocytes # (Manual) Monocytes # (Manual) Eosinophils # (Manual) PT INR APTT Fibrinogen POC ABG pH ABG pH 7.272 L POC ABG pCO2 POC ABG pO2 ABG pO2 75.7 L ABG HCO3 ABG O2 Saturation 93.8 L ABG Base Excess -3.0 L ABG Hemoglobin 7.8 L Oxyhemoglobin 91.6 L Sodium Potassium 5.2 H Chloride Carbon Dioxide BUN 96 H Creatinine 5.7 H Glucose 112 H POC Glucose Uric Acid Calcium Phosphorus Magnesium AST ALT Total Creatine Kinase CK-MB (CK-2) Troponin T NT-Pro-B Natriuret Pep Total Protein Albumin Triglycerides 173 H HDL Cholesterol Urine WBC (Auto) Urine Creatinine Urine Total Protein Vancomycin Trough 05/18/19 05/18/19 05/18/19 01:50 04:41 05:24 WBC RBC Hgb Hct MCV MCH MCHC RDW Plt Count Lymph % (Auto) [place] % (Auto) Eos % (Auto) Lymph # [place] # Eos # Seg Neutrophils % Seg Neuts % (Manual) Lymphocytes % (Manual) Monocytes % (Manual) Eosinophils % (Manual) Nucleated RBC % Seg Neutrophils # Seg Neutrophils # Man Lymphocytes # (Manual) Monocytes # (Manual) Eosinophils # (Manual) PT INR APTT Fibrinogen POC ABG pH 7.260 L ABG pH POC ABG pCO2 54.9 H POC ABG pO2 ABG pO2 ABG HCO3 ABG O2 Saturation ABG Base Excess ABG Hemoglobin Oxyhemoglobin Sodium Potassium 5.6 H Chloride Carbon Dioxide BUN 104 H Creatinine 6.6 H Glucose 107 H POC Glucose 106 H Uric Acid Calcium Phosphorus Magnesium AST ALT Total Creatine Kinase CK-MB (CK-2) Troponin T NT-Pro-B Natriuret Pep Total Protein Albumin Triglycerides HDL Cholesterol Urine WBC (Auto) Urine Creatinine Urine Total Protein Vancomycin Trough 05/18/19 05/18/19 05/19/19 11:34 23:26 04:06 WBC RBC 3.22 L Hgb 8.8 L Hct 27.3 L MCV MCH 27 L MCHC RDW 17.5 H Plt Count Lymph % (Auto) [place] % (Auto) Eos % (Auto) Lymph # [place] # Eos # Seg Neutrophils % Seg Neuts % (Manual) 74.0 H Lymphocytes % (Manual) 4.0 L Monocytes % (Manual) 11.0 H Eosinophils % (Manual) 7.0 H Nucleated RBC % 1.0 H Seg Neutrophils # Seg Neutrophils # Man Lymphocytes # (Manual) 0.3 L Monocytes # (Manual) 0.9 H Eosinophils # (Manual) 0.6 H PT INR APTT Fibrinogen POC ABG pH ABG pH POC ABG pCO2 POC ABG pO2 ABG pO2 ABG HCO3 ABG O2 Saturation ABG Base Excess ABG Hemoglobin Oxyhemoglobin Sodium Potassium Chloride Carbon Dioxide BUN Creatinine Glucose POC Glucose 152 H 112 H Uric Acid Calcium Phosphorus Magnesium AST ALT Total Creatine Kinase CK-MB (CK-2) Troponin T NT-Pro-B Natriuret Pep Total Protein Albumin Triglycerides HDL Cholesterol Urine WBC (Auto) Urine Creatinine Urine Total Protein Vancomycin Trough 05/19/19 05/19/19 05/20/19 04:06 06:00 04:00 WBC RBC 3.40 L Hgb 9.2 L Hct 28.6 L MCV MCH 27 L MCHC RDW 17.6 H Plt Count Lymph % (Auto) [place] % (Auto) Eos % (Auto) Lymph # [place] # Eos # Seg Neutrophils % Seg Neuts % (Manual) Lymphocytes % (Manual) 11.0 L Monocytes % (Manual) Eosinophils % (Manual) 14.0 H Nucleated RBC % Seg Neutrophils # Seg Neutrophils # Man Lymphocytes # (Manual) 1.1 L Monocytes # (Manual) Eosinophils # (Manual) 1.4 H PT INR APTT Fibrinogen POC ABG pH ABG pH 7.315 L POC ABG pCO2 POC ABG pO2 ABG pO2 ABG HCO3 ABG O2 Saturation ABG Base Excess ABG Hemoglobin 6.7 L Oxyhemoglobin 94.1 L Sodium Potassium 5.2 H Chloride Carbon Dioxide 21 L BUN 110 H Creatinine 7.2 H Glucose POC Glucose Uric Acid Calcium 8.3 L Phosphorus Magnesium AST ALT Total Creatine Kinase CK-MB (CK-2) Troponin T NT-Pro-B Natriuret Pep Total Protein Albumin Triglycerides HDL Cholesterol Urine WBC (Auto) Urine Creatinine Urine Total Protein Vancomycin Trough 05/20/19 05/20/19 05/20/19 04:00 05:48 12:00 WBC RBC Hgb Hct MCV MCH MCHC RDW Plt Count Lymph % (Auto) [place] % (Auto) Eos % (Auto) Lymph # [place] # Eos # Seg Neutrophils % Seg Neuts % (Manual) Lymphocytes % (Manual) Monocytes % (Manual) Eosinophils % (Manual) Nucleated RBC % Seg Neutrophils # Seg Neutrophils # Man Lymphocytes # (Manual) Monocytes # (Manual) Eosinophils # (Manual) PT INR APTT Fibrinogen POC ABG pH ABG pH 7.281 L POC ABG pCO2 POC ABG pO2 ABG pO2 78.7 L ABG HCO3 ABG O2 Saturation 94.5 L ABG Base Excess -3.0 L ABG Hemoglobin 9.9 L Oxyhemoglobin 92.5 L Sodium 136 L Potassium 5.7 H Chloride 96.3 L Carbon Dioxide BUN 125 H Creatinine 8.3 H Glucose 106 H POC Glucose Uric Acid Calcium Phosphorus Magnesium AST ALT Total Creatine Kinase CK-MB (CK-2) Troponin T NT-Pro-B Natriuret Pep Total Protein Albumin Triglycerides HDL Cholesterol Urine WBC (Auto) 26.0 H Urine Creatinine Urine Total Protein Vancomycin Trough 05/21/19 05/21/19 05/21/19 04:33 05:20 Unknown WBC RBC 3.38 L Hgb 9.1 L Hct 28.5 L MCV MCH 27 L MCHC RDW 17.4 H Plt Count Lymph % (Auto) [place] % (Auto) Eos % (Auto) Lymph # [place] # Eos # Seg Neutrophils % Seg Neuts % (Manual) 71.0 H Lymphocytes % (Manual) 1.0 L Monocytes % (Manual) 11.0 H Eosinophils % (Manual) 6.0 H Nucleated RBC % Seg Neutrophils # Seg Neutrophils # Man Lymphocytes # (Manual) 0.1 L Monocytes # (Manual) 1.0 H Eosinophils # (Manual) 0.6 H PT INR APTT Fibrinogen POC ABG pH 7.315 L ABG pH POC ABG pCO2 57.8 H POC ABG pO2 68 L ABG pO2 ABG HCO3 ABG O2 Saturation ABG Base Excess ABG Hemoglobin Oxyhemoglobin Sodium Potassium Chloride 96.3 L Carbon Dioxide BUN 102 H Creatinine 7.0 H Glucose 103 H POC Glucose Uric Acid Calcium Phosphorus Magnesium AST ALT Total Creatine Kinase CK-MB (CK-2) Troponin T NT-Pro-B Natriuret Pep Total Protein Albumin Triglycerides HDL Cholesterol Urine WBC (Auto) Urine Creatinine Urine Total Protein Vancomycin Trough 05/22/19 05/22/19 05/22/19 03:54 06:25 06:25 WBC RBC 3.22 L Hgb 8.6 L Hct 27.0 L MCV MCH 27 L MCHC RDW 17.5 H Plt Count Lymph % (Auto) [place] % (Auto) 16.2 H Eos % (Auto) 10.8 H Lymph # [place] # 1.3 H Eos # 0.9 H Seg Neutrophils % Seg Neuts % (Manual) Lymphocytes % (Manual) 10.0 L Monocytes % (Manual) 13.0 H Eosinophils % (Manual) 8.0 H Nucleated RBC % Seg Neutrophils # Seg Neutrophils # Man Lymphocytes # (Manual) 0.9 L Monocytes # (Manual) 1.1 H Eosinophils # (Manual) 0.7 H PT INR APTT Fibrinogen POC ABG pH 7.313 L ABG pH POC ABG pCO2 55.0 H POC ABG pO2 ABG pO2 ABG HCO3 ABG O2 Saturation ABG Base Excess ABG Hemoglobin Oxyhemoglobin Sodium 135 L Potassium Chloride 94.3 L Carbon Dioxide BUN 117 H Creatinine 7.8 H Glucose POC Glucose Uric Acid Calcium 8.2 L Phosphorus Magnesium AST ALT Total Creatine Kinase CK-MB (CK-2) Troponin T NT-Pro-B Natriuret Pep Total Protein Albumin Triglycerides HDL Cholesterol Urine WBC (Auto) Urine Creatinine Urine Total Protein Vancomycin Trough 05/23/19 05/24/19 05/24/19 05:21 05:00 05:00 WBC RBC 3.18 L Hgb 8.5 L Hct 26.7 L MCV MCH 27 L MCHC RDW 17.9 H Plt Count Lymph % (Auto) [place] % (Auto) Eos % (Auto) Lymph # [place] # Eos # Seg Neutrophils % Seg Neuts % (Manual) Lymphocytes % (Manual) Monocytes % (Manual) Eosinophils % (Manual) Nucleated RBC % Seg Neutrophils # Seg Neutrophils # Man Lymphocytes # (Manual) Monocytes # (Manual) Eosinophils # (Manual) PT INR APTT Fibrinogen POC ABG pH ABG pH POC ABG pCO2 49.7 H POC ABG pO2 73 L ABG pO2 ABG HCO3 ABG O2 Saturation ABG Base Excess ABG Hemoglobin Oxyhemoglobin Sodium Potassium Chloride 95.7 L Carbon Dioxide BUN 97 H Creatinine 6.5 H Glucose POC Glucose Uric Acid Calcium 8.0 L Phosphorus Magnesium AST ALT Total Creatine Kinase CK-MB (CK-2) Troponin T NT-Pro-B Natriuret Pep Total Protein Albumin Triglycerides HDL Cholesterol Urine WBC (Auto) Urine Creatinine Urine Total Protein Vancomycin Trough 05/24/19 05/25/19 05/25/19 06:17 04:22 15:45 WBC RBC 2.98 L Hgb 8.1 L Hct 24.9 L MCV MCH 27 L MCHC RDW 17.8 H Plt Count Lymph % (Auto) [place] % (Auto) Eos % (Auto) Lymph # [place] # Eos # Seg Neutrophils % Seg Neuts % (Manual) Lymphocytes % (Manual) Monocytes % (Manual) Eosinophils % (Manual) Nucleated RBC % Seg Neutrophils # Seg Neutrophils # Man Lymphocytes # (Manual) Monocytes # (Manual) Eosinophils # (Manual) PT INR APTT Fibrinogen POC ABG pH 7.330 L 7.313 L ABG pH POC ABG pCO2 52.5 H 51.1 H POC ABG pO2 77 L ABG pO2 ABG HCO3 ABG O2 Saturation ABG Base Excess ABG Hemoglobin Oxyhemoglobin Sodium Potassium Chloride Carbon Dioxide BUN Creatinine Glucose POC Glucose Uric Acid Calcium Phosphorus Magnesium AST ALT Total Creatine Kinase CK-MB (CK-2) Troponin T NT-Pro-B Natriuret Pep Total Protein Albumin Triglycerides HDL Cholesterol Urine WBC (Auto) Urine Creatinine Urine Total Protein Vancomycin Trough 05/25/19 05/26/19 05/26/19 15:45 04:13 05:00 WBC RBC 3.10 L Hgb 8.4 L Hct 26.0 L MCV MCH 27 L MCHC RDW 17.4 H Plt Count Lymph % (Auto) [place] % (Auto) Eos % (Auto) Lymph # [place] # Eos # Seg Neutrophils % Seg Neuts % (Manual) Lymphocytes % (Manual) Monocytes % (Manual) Eosinophils % (Manual) Nucleated RBC % Seg Neutrophils # Seg Neutrophils # Man Lymphocytes # (Manual) Monocytes # (Manual) Eosinophils # (Manual) PT INR APTT Fibrinogen POC ABG pH 7.295 L ABG pH POC ABG pCO2 56.5 H POC ABG pO2 63 L ABG pO2 ABG HCO3 ABG O2 Saturation ABG Base Excess ABG Hemoglobin Oxyhemoglobin Sodium 136 L Potassium Chloride 96.8 L Carbon Dioxide BUN 83 H Creatinine 5.9 H Glucose POC Glucose Uric Acid Calcium 7.6 L Phosphorus Magnesium AST ALT Total Creatine Kinase CK-MB (CK-2) Troponin T NT-Pro-B Natriuret Pep Total Protein Albumin Triglycerides HDL Cholesterol Urine WBC (Auto) Urine Creatinine Urine Total Protein Vancomycin Trough 05/26/19 05/27/19 05/28/19 05:00 04:48 04:47 WBC RBC Hgb Hct MCV MCH MCHC RDW Plt Count Lymph % (Auto) [place] % (Auto) Eos % (Auto) Lymph # [place] # Eos # Seg Neutrophils % Seg Neuts % (Manual) Lymphocytes % (Manual) Monocytes % (Manual) Eosinophils % (Manual) Nucleated RBC % Seg Neutrophils # Seg Neutrophils # Man Lymphocytes # (Manual) Monocytes # (Manual) Eosinophils # (Manual) PT INR APTT Fibrinogen POC ABG pH 7.323 L ABG pH 7.284 L POC ABG pCO2 56.2 H POC ABG pO2 ABG pO2 71.6 L ABG HCO3 ABG O2 Saturation 92.0 L ABG Base Excess ABG Hemoglobin 7.7 L Oxyhemoglobin 89.9 L Sodium 136 L Potassium Chloride 95.3 L Carbon Dioxide BUN 96 H Creatinine 6.5 H Glucose 108 H POC Glucose Uric Acid Calcium 7.6 L Phosphorus Magnesium AST ALT Total Creatine Kinase CK-MB (CK-2) Troponin T NT-Pro-B Natriuret Pep Total Protein Albumin Triglycerides HDL Cholesterol Urine WBC (Auto) Urine Creatinine Urine Total Protein Vancomycin Trough 05/28/19 05/29/19 05/29/19 12:30 12:47 23:44 WBC RBC Hgb Hct MCV MCH MCHC RDW Plt Count Lymph % (Auto) [place] % (Auto) Eos % (Auto) Lymph # [place] # Eos # Seg Neutrophils % Seg Neuts % (Manual) Lymphocytes % (Manual) Monocytes % (Manual) Eosinophils % (Manual) Nucleated RBC % Seg Neutrophils # Seg Neutrophils # Man Lymphocytes # (Manual) Monocytes # (Manual) Eosinophils # (Manual) PT INR APTT Fibrinogen POC ABG pH ABG pH POC ABG pCO2 POC ABG pO2 ABG pO2 ABG HCO3 ABG O2 Saturation ABG Base Excess ABG Hemoglobin Oxyhemoglobin Sodium 135 L Potassium Chloride 95.3 L Carbon Dioxide BUN 82 H Creatinine 6.0 H Glucose POC Glucose 136 H 159 H Uric Acid Calcium 7.5 L Phosphorus Magnesium AST ALT Total Creatine Kinase CK-MB (CK-2) Troponin T NT-Pro-B Natriuret Pep Total Protein Albumin Triglycerides HDL Cholesterol Urine WBC (Auto) Urine Creatinine Urine Total Protein Vancomycin Trough 05/30/19 05/30/19 05/30/19 04:30 05:38 12:00 WBC RBC 3.01 L Hgb 8.2 L Hct 25.3 L MCV MCH 27 L MCHC RDW 17.5 H Plt Count Lymph % (Auto) [place] % (Auto) Eos % (Auto) Lymph # [place] # Eos # Seg Neutrophils % Seg Neuts % (Manual) 80.0 H Lymphocytes % (Manual) 10.0 L Monocytes % (Manual) Eosinophils % (Manual) Nucleated RBC % Seg Neutrophils # Seg Neutrophils # Man 8.0 H Lymphocytes # (Manual) 1.0 L Monocytes # (Manual) Eosinophils # (Manual) PT INR APTT Fibrinogen POC ABG pH ABG pH POC ABG pCO2 POC ABG pO2 73 L ABG pO2 ABG HCO3 ABG O2 Saturation ABG Base Excess ABG Hemoglobin Oxyhemoglobin Sodium Potassium Chloride Carbon Dioxide BUN Creatinine Glucose POC Glucose 166 H Uric Acid Calcium Phosphorus Magnesium AST ALT Total Creatine Kinase CK-MB (CK-2) Troponin T NT-Pro-B Natriuret Pep Total Protein Albumin Triglycerides HDL Cholesterol Urine WBC (Auto) Urine Creatinine Urine Total Protein Vancomycin Trough 05/30/19 05/31/19 05/31/19 23:45 04:07 13:04 WBC 14.3 H RBC 2.88 L Hgb 7.7 L Hct 23.9 L MCV 83 L MCH 27 L MCHC RDW 17.8 H Plt Count Lymph % (Auto) [place] % (Auto) Eos % (Auto) Lymph # [place] # Eos # Seg Neutrophils % Seg Neuts % (Manual) 83.0 H Lymphocytes % (Manual) 11.0 L Monocytes % (Manual) Eosinophils % (Manual) Nucleated RBC % Seg Neutrophils # Seg Neutrophils # Man 11.9 H Lymphocytes # (Manual) Monocytes # (Manual) 0.9 H Eosinophils # (Manual) PT INR APTT Fibrinogen POC ABG pH ABG pH POC ABG pCO2 47.4 H POC ABG pO2 ABG pO2 ABG HCO3 ABG O2 Saturation ABG Base Excess ABG Hemoglobin Oxyhemoglobin Sodium Potassium Chloride Carbon Dioxide BUN Creatinine Glucose POC Glucose 209 H Uric Acid Calcium Phosphorus Magnesium AST ALT Total Creatine Kinase CK-MB (CK-2) Troponin T NT-Pro-B Natriuret Pep Total Protein Albumin Triglycerides HDL Cholesterol Urine WBC (Auto) Urine Creatinine Urine Total Protein Vancomycin Trough 05/31/19 05/31/19 06/01/19 13:04 16:42 00:15 WBC RBC Hgb Hct MCV MCH MCHC RDW Plt Count Lymph % (Auto) [place] % (Auto) Eos % (Auto) Lymph # [place] # Eos # Seg Neutrophils % Seg Neuts % (Manual) Lymphocytes % (Manual) Monocytes % (Manual) Eosinophils % (Manual) Nucleated RBC % Seg Neutrophils # Seg Neutrophils # Man Lymphocytes # (Manual) Monocytes # (Manual) Eosinophils # (Manual) PT INR APTT Fibrinogen POC ABG pH ABG pH POC ABG pCO2 POC ABG pO2 ABG pO2 ABG HCO3 ABG O2 Saturation ABG Base Excess ABG Hemoglobin Oxyhemoglobin Sodium 129 L Potassium Chloride 88.6 L Carbon Dioxide 19 L BUN 117 H Creatinine 6.7 H Glucose 205 H POC Glucose 228 H 223 H Uric Acid Calcium 7.4 L Phosphorus 7.40 H Magnesium AST 58 H ALT 149 H Total Creatine Kinase CK-MB (CK-2) Troponin T NT-Pro-B Natriuret Pep Total Protein 6.0 L Albumin 2.5 L Triglycerides HDL Cholesterol Urine WBC (Auto) Urine Creatinine Urine Total Protein Vancomycin Trough 06/01/19 06/01/19 06/01/19 04:33 05:27 12:31 WBC RBC Hgb Hct MCV MCH MCHC RDW Plt Count Lymph % (Auto) [place] % (Auto) Eos % (Auto) Lymph # [place] # Eos # Seg Neutrophils % Seg Neuts % (Manual) Lymphocytes % (Manual) Monocytes % (Manual) Eosinophils % (Manual) Nucleated RBC % Seg Neutrophils # Seg Neutrophils # Man Lymphocytes # (Manual) Monocytes # (Manual) Eosinophils # (Manual) PT INR APTT Fibrinogen POC ABG pH ABG pH POC ABG pCO2 POC ABG pO2 ABG pO2 56.9 L ABG HCO3 ABG O2 Saturation 85.9 L ABG Base Excess ABG Hemoglobin 8.1 L Oxyhemoglobin 83.6 L Sodium Potassium Chloride Carbon Dioxide BUN Creatinine Glucose POC Glucose 183 H 217 H Uric Acid Calcium Phosphorus Magnesium AST ALT Total Creatine Kinase CK-MB (CK-2) Troponin T NT-Pro-B Natriuret Pep Total Protein Albumin Triglycerides HDL Cholesterol Urine WBC (Auto) Urine Creatinine Urine Total Protein Vancomycin Trough 06/01/19 06/02/19 06/02/19 18:20 00:00 05:33 WBC RBC Hgb Hct MCV MCH MCHC RDW Plt Count Lymph % (Auto) [place] % (Auto) Eos % (Auto) Lymph # [place] # Eos # Seg Neutrophils % Seg Neuts % (Manual) Lymphocytes % (Manual) Monocytes % (Manual) Eosinophils % (Manual) Nucleated RBC % Seg Neutrophils # Seg Neutrophils # Man Lymphocytes # (Manual) Monocytes # (Manual) Eosinophils # (Manual) PT INR APTT Fibrinogen POC ABG pH ABG pH POC ABG pCO2 POC ABG pO2 ABG pO2 ABG HCO3 ABG O2 Saturation ABG Base Excess ABG Hemoglobin Oxyhemoglobin Sodium Potassium Chloride Carbon Dioxide BUN Creatinine Glucose POC Glucose 265 H 279 H 259 H Uric Acid Calcium Phosphorus Magnesium AST ALT Total Creatine Kinase CK-MB (CK-2) Troponin T NT-Pro-B Natriuret Pep Total Protein Albumin Triglycerides HDL Cholesterol Urine WBC (Auto) Urine Creatinine Urine Total Protein Vancomycin Trough 06/02/19 06/02/19 06/02/19 11:06 11:06 11:42 WBC 13.1 H RBC 2.92 L Hgb 7.9 L Hct 24.4 L MCV MCH 27 L MCHC RDW 17.4 H Plt Count Lymph % (Auto) [place] % (Auto) Eos % (Auto) Lymph # [place] # Eos # Seg Neutrophils % Seg Neuts % (Manual) 78.0 H Lymphocytes % (Manual) 12.0 L Monocytes % (Manual) 10.0 H Eosinophils % (Manual) Nucleated RBC % Seg Neutrophils # Seg Neutrophils # Man 10.2 H Lymphocytes # (Manual) Monocytes # (Manual) 1.3 H Eosinophils # (Manual) PT INR APTT Fibrinogen POC ABG pH ABG pH POC ABG pCO2 POC ABG pO2 ABG pO2 ABG HCO3 ABG O2 Saturation ABG Base Excess ABG Hemoglobin Oxyhemoglobin Sodium 135 L Potassium Chloride 94.7 L Carbon Dioxide 21 L BUN 107 H Creatinine 4.5 H Glucose 286 H POC Glucose 263 H Uric Acid Calcium 7.9 L Phosphorus 6.30 H Magnesium AST ALT 104 H Total Creatine Kinase CK-MB (CK-2) Troponin T NT-Pro-B Natriuret Pep Total Protein 6.0 L Albumin 2.7 L Triglycerides HDL Cholesterol Urine WBC (Auto) Urine Creatinine Urine Total Protein Vancomycin Trough 06/02/19 06/02/19 06/03/19 18:17 23:55 05:30 WBC RBC Hgb Hct MCV MCH MCHC RDW Plt Count Lymph % (Auto) [place] % (Auto) Eos % (Auto) Lymph # [place] # Eos # Seg Neutrophils % Seg Neuts % (Manual) Lymphocytes % (Manual) Monocytes % (Manual) Eosinophils % (Manual) Nucleated RBC % Seg Neutrophils # Seg Neutrophils # Man Lymphocytes # (Manual) Monocytes # (Manual) Eosinophils # (Manual) PT INR APTT Fibrinogen POC ABG pH ABG pH POC ABG pCO2 POC ABG pO2 ABG pO2 ABG HCO3 ABG O2 Saturation ABG Base Excess ABG Hemoglobin Oxyhemoglobin Sodium Potassium Chloride 95.1 L Carbon Dioxide 21 L BUN 119 H Creatinine 4.1 H Glucose 330 H POC Glucose 276 H 244 H Uric Acid Calcium 8.1 L Phosphorus Magnesium AST ALT 98 H Total Creatine Kinase CK-MB (CK-2) Troponin T NT-Pro-B Natriuret Pep Total Protein 5.8 L Albumin 2.8 L Triglycerides HDL Cholesterol Urine WBC (Auto) Urine Creatinine Urine Total Protein Vancomycin Trough 06/03/19 06/03/19 06/03/19 05:30 06:04 09:42 WBC 12.8 H RBC 3.01 L Hgb 8.2 L Hct 25.4 L MCV MCH 27 L MCHC RDW 17.5 H Plt Count Lymph % (Auto) [place] % (Auto) Eos % (Auto) Lymph # [place] # Eos # Seg Neutrophils % Seg Neuts % (Manual) 78.0 H Lymphocytes % (Manual) 10.0 L Monocytes % (Manual) 12.0 H Eosinophils % (Manual) Nucleated RBC % Seg Neutrophils # Seg Neutrophils # Man 10.0 H Lymphocytes # (Manual) Monocytes # (Manual) 1.5 H Eosinophils # (Manual) PT INR APTT Fibrinogen POC ABG pH ABG pH POC ABG pCO2 POC ABG pO2 ABG pO2 ABG HCO3 ABG O2 Saturation ABG Base Excess ABG Hemoglobin Oxyhemoglobin Sodium Potassium Chloride Carbon Dioxide BUN 106 H Creatinine Glucose POC Glucose 254 H Uric Acid Calcium Phosphorus Magnesium AST ALT Total Creatine Kinase CK-MB (CK-2) Troponin T NT-Pro-B Natriuret Pep Total Protein Albumin Triglycerides HDL Cholesterol Urine WBC (Auto) Urine Creatinine Urine Total Protein Vancomycin Trough 06/03/19 06/03/19 06/03/19 12:52 17:25 23:37 WBC RBC Hgb Hct MCV MCH MCHC RDW Plt Count Lymph % (Auto) [place] % (Auto) Eos % (Auto) Lymph # [place] # Eos # Seg Neutrophils % Seg Neuts % (Manual) Lymphocytes % (Manual) Monocytes % (Manual) Eosinophils % (Manual) Nucleated RBC % Seg Neutrophils # Seg Neutrophils # Man Lymphocytes # (Manual) Monocytes # (Manual) Eosinophils # (Manual) PT INR APTT Fibrinogen POC ABG pH ABG pH POC ABG pCO2 POC ABG pO2 ABG pO2 ABG HCO3 ABG O2 Saturation ABG Base Excess ABG Hemoglobin Oxyhemoglobin Sodium Potassium Chloride Carbon Dioxide BUN Creatinine Glucose POC Glucose 274 H 285 H 310 H Uric Acid Calcium Phosphorus Magnesium AST ALT Total Creatine Kinase CK-MB (CK-2) Troponin T NT-Pro-B Natriuret Pep Total Protein Albumin Triglycerides HDL Cholesterol Urine WBC (Auto) Urine Creatinine Urine Total Protein Vancomycin Trough 06/04/19 06/04/19 06/04/19 04:57 05:03 11:50 WBC RBC Hgb Hct MCV MCH MCHC RDW Plt Count Lymph % (Auto) [place] % (Auto) Eos % (Auto) Lymph # [place] # Eos # Seg Neutrophils % Seg Neuts % (Manual) Lymphocytes % (Manual) Monocytes % (Manual) Eosinophils % (Manual) Nucleated RBC % Seg Neutrophils # Seg Neutrophils # Man Lymphocytes # (Manual) Monocytes # (Manual) Eosinophils # (Manual) PT INR APTT Fibrinogen POC ABG pH 7.488 H ABG pH POC ABG pCO2 POC ABG pO2 ABG pO2 ABG HCO3 ABG O2 Saturation ABG Base Excess ABG Hemoglobin Oxyhemoglobin Sodium Potassium Chloride Carbon Dioxide BUN Creatinine Glucose POC Glucose 275 H 279 H Uric Acid Calcium Phosphorus Magnesium AST ALT Total Creatine Kinase CK-MB (CK-2) Troponin T NT-Pro-B Natriuret Pep Total Protein Albumin Triglycerides HDL Cholesterol Urine WBC (Auto) Urine Creatinine Urine Total Protein Vancomycin Trough 06/04/19 06/04/19 06/04/19 18:32 22:03 23:55 WBC RBC Hgb Hct MCV MCH MCHC RDW Plt Count Lymph % (Auto) [place] % (Auto) Eos % (Auto) Lymph # [place] # Eos # Seg Neutrophils % Seg Neuts % (Manual) Lymphocytes % (Manual) Monocytes % (Manual) Eosinophils % (Manual) Nucleated RBC % Seg Neutrophils # Seg Neutrophils # Man Lymphocytes # (Manual) Monocytes # (Manual) Eosinophils # (Manual) PT INR APTT Fibrinogen POC ABG pH ABG pH POC ABG pCO2 POC ABG pO2 ABG pO2 ABG HCO3 ABG O2 Saturation ABG Base Excess ABG Hemoglobin Oxyhemoglobin Sodium Potassium Chloride Carbon Dioxide BUN Creatinine Glucose POC Glucose 267 H 307 H 292 H Uric Acid Calcium Phosphorus Magnesium AST ALT Total Creatine Kinase CK-MB (CK-2) Troponin T NT-Pro-B Natriuret Pep Total Protein Albumin Triglycerides HDL Cholesterol Urine WBC (Auto) Urine Creatinine Urine Total Protein Vancomycin Trough 06/05/19 06/05/19 06/05/19 03:52 06:41 12:29 WBC RBC Hgb Hct MCV MCH MCHC RDW Plt Count Lymph % (Auto) [place] % (Auto) Eos % (Auto) Lymph # [place] # Eos # Seg Neutrophils % Seg Neuts % (Manual) Lymphocytes % (Manual) Monocytes % (Manual) Eosinophils % (Manual) Nucleated RBC % Seg Neutrophils # Seg Neutrophils # Man Lymphocytes # (Manual) Monocytes # (Manual) Eosinophils # (Manual) PT INR APTT Fibrinogen POC ABG pH 7.462 H ABG pH POC ABG pCO2 POC ABG pO2 ABG pO2 ABG HCO3 ABG O2 Saturation ABG Base Excess ABG Hemoglobin Oxyhemoglobin Sodium Potassium Chloride Carbon Dioxide BUN Creatinine Glucose POC Glucose 369 H 265 H Uric Acid Calcium Phosphorus Magnesium AST ALT Total Creatine Kinase CK-MB (CK-2) Troponin T NT-Pro-B Natriuret Pep Total Protein Albumin Triglycerides HDL Cholesterol Urine WBC (Auto) Urine Creatinine Urine Total Protein Vancomycin Trough 06/05/19 06/05/19 06/05/19 18:20 21:42 23:21 WBC RBC Hgb Hct MCV MCH MCHC RDW Plt Count Lymph % (Auto) [place] % (Auto) Eos % (Auto) Lymph # [place] # Eos # Seg Neutrophils % Seg Neuts % (Manual) Lymphocytes % (Manual) Monocytes % (Manual) Eosinophils % (Manual) Nucleated RBC % Seg Neutrophils # Seg Neutrophils # Man Lymphocytes # (Manual) Monocytes # (Manual) Eosinophils # (Manual) PT INR APTT Fibrinogen POC ABG pH ABG pH POC ABG pCO2 POC ABG pO2 ABG pO2 ABG HCO3 ABG O2 Saturation ABG Base Excess ABG Hemoglobin Oxyhemoglobin Sodium Potassium Chloride Carbon Dioxide BUN Creatinine Glucose POC Glucose 249 H 246 H 274 H Uric Acid Calcium Phosphorus Magnesium AST ALT Total Creatine Kinase CK-MB (CK-2) Troponin T NT-Pro-B Natriuret Pep Total Protein Albumin Triglycerides HDL Cholesterol Urine WBC (Auto) Urine Creatinine Urine Total Protein Vancomycin Trough 06/06/19 06/06/19 06/06/19 04:00 05:49 11:34 WBC 18.1 H RBC 3.53 L Hgb 9.5 L Hct 30.3 L MCV MCH 27 L MCHC 31 L RDW 19.5 H Plt Count Lymph % (Auto) [place] % (Auto) Eos % (Auto) Lymph # [place] # Eos # Seg Neutrophils % Seg Neuts % (Manual) 87.0 H Lymphocytes % (Manual) 3.0 L Monocytes % (Manual) 8.0 H Eosinophils % (Manual) Nucleated RBC % Seg Neutrophils # Seg Neutrophils # Man 15.7 H Lymphocytes # (Manual) 0.5 L Monocytes # (Manual) 1.4 H Eosinophils # (Manual) PT INR APTT Fibrinogen POC ABG pH ABG pH 7.472 H POC ABG pCO2 POC ABG pO2 ABG pO2 76.4 L ABG HCO3 28.1 H ABG O2 Saturation ABG Base Excess 4.3 H ABG Hemoglobin 12.5 L Oxyhemoglobin 93.8 L Sodium Potassium Chloride Carbon Dioxide BUN Creatinine Glucose POC Glucose 340 H Uric Acid Calcium Phosphorus Magnesium AST ALT Total Creatine Kinase CK-MB (CK-2) Troponin T NT-Pro-B Natriuret Pep Total Protein Albumin Triglycerides HDL Cholesterol Urine WBC (Auto) Urine Creatinine Urine Total Protein Vancomycin Trough 06/06/19 06/06/19 06/06/19 11:34 12:11 18:10 WBC RBC Hgb Hct MCV MCH MCHC RDW Plt Count Lymph % (Auto) [place] % (Auto) Eos % (Auto) Lymph # [place] # Eos # Seg Neutrophils % Seg Neuts % (Manual) Lymphocytes % (Manual) Monocytes % (Manual) Eosinophils % (Manual) Nucleated RBC % Seg Neutrophils # Seg Neutrophils # Man Lymphocytes # (Manual) Monocytes # (Manual) Eosinophils # (Manual) PT INR APTT Fibrinogen POC ABG pH ABG pH POC ABG pCO2 POC ABG pO2 ABG pO2 ABG HCO3 ABG O2 Saturation ABG Base Excess ABG Hemoglobin Oxyhemoglobin Sodium Potassium Chloride Carbon Dioxide BUN 70 H Creatinine Glucose 310 H POC Glucose 283 H 301 H Uric Acid Calcium 8.3 L Phosphorus 4.60 H Magnesium AST ALT 75 H Total Creatine Kinase CK-MB (CK-2) Troponin T NT-Pro-B Natriuret Pep Total Protein 5.6 L Albumin 2.9 L Triglycerides HDL Cholesterol Urine WBC (Auto) Urine Creatinine Urine Total Protein Vancomycin Trough 06/06/19 06/06/19 06/07/19 22:21 23:16 04:30 WBC RBC Hgb Hct MCV MCH MCHC RDW Plt Count Lymph % (Auto) [place] % (Auto) Eos % (Auto) Lymph # [place] # Eos # Seg Neutrophils % Seg Neuts % (Manual) Lymphocytes % (Manual) Monocytes % (Manual) Eosinophils % (Manual) Nucleated RBC % Seg Neutrophils # Seg Neutrophils # Man Lymphocytes # (Manual) Monocytes # (Manual) Eosinophils # (Manual) PT INR APTT Fibrinogen POC ABG pH ABG pH 7.480 H POC ABG pCO2 POC ABG pO2 ABG pO2 77.0 L ABG HCO3 27.2 H ABG O2 Saturation ABG Base Excess 3.5 H ABG Hemoglobin 7.1 L Oxyhemoglobin 94.2 L Sodium Potassium Chloride Carbon Dioxide BUN Creatinine Glucose POC Glucose 289 H 343 H Uric Acid Calcium Phosphorus Magnesium AST ALT Total Creatine Kinase CK-MB (CK-2) Troponin T NT-Pro-B Natriuret Pep Total Protein Albumin Triglycerides HDL Cholesterol Urine WBC (Auto) Urine Creatinine Urine Total Protein Vancomycin Trough 06/07/19 06/07/19 06/07/19 05:15 12:52 18:41 WBC RBC Hgb Hct MCV MCH MCHC RDW Plt Count Lymph % (Auto) [place] % (Auto) Eos % (Auto) Lymph # [place] # Eos # Seg Neutrophils % Seg Neuts % (Manual) Lymphocytes % (Manual) Monocytes % (Manual) Eosinophils % (Manual) Nucleated RBC % Seg Neutrophils # Seg Neutrophils # Man Lymphocytes # (Manual) Monocytes # (Manual) Eosinophils # (Manual) PT INR APTT Fibrinogen POC ABG pH ABG pH POC ABG pCO2 POC ABG pO2 ABG pO2 ABG HCO3 ABG O2 Saturation ABG Base Excess ABG Hemoglobin Oxyhemoglobin Sodium Potassium Chloride Carbon Dioxide BUN Creatinine Glucose POC Glucose 307 H 226 H 187 H Uric Acid Calcium Phosphorus Magnesium AST ALT Total Creatine Kinase CK-MB (CK-2) Troponin T NT-Pro-B Natriuret Pep Total Protein Albumin Triglycerides HDL Cholesterol Urine WBC (Auto) Urine Creatinine Urine Total Protein Vancomycin Trough 06/07/19 06/07/19 06/08/19 22:54 23:46 04:20 WBC 16.0 H RBC Hgb 10.0 L Hct 32.1 L MCV MCH 27 L MCHC 31 L RDW 19.4 H Plt Count Lymph % (Auto) [place] % (Auto) Eos % (Auto) Lymph # [place] # Eos # Seg Neutrophils % Seg Neuts % (Manual) 87.0 H Lymphocytes % (Manual) 7.0 L Monocytes % (Manual) Eosinophils % (Manual) Nucleated RBC % Seg Neutrophils # Seg Neutrophils # Man 13.9 H Lymphocytes # (Manual) 1.1 L Monocytes # (Manual) 1.0 H Eosinophils # (Manual) PT INR APTT Fibrinogen POC ABG pH ABG pH POC ABG pCO2 POC ABG pO2 ABG pO2 ABG HCO3 ABG O2 Saturation ABG Base Excess ABG Hemoglobin Oxyhemoglobin Sodium Potassium Chloride Carbon Dioxide BUN Creatinine Glucose POC Glucose 199 H 172 H Uric Acid Calcium Phosphorus Magnesium AST ALT Total Creatine Kinase CK-MB (CK-2) Troponin T NT-Pro-B Natriuret Pep Total Protein Albumin Triglycerides HDL Cholesterol Urine WBC (Auto) Urine Creatinine Urine Total Protein Vancomycin Trough 06/08/19 06/08/19 06/08/19 04:20 05:15 11:31 WBC RBC Hgb Hct MCV MCH MCHC RDW Plt Count Lymph % (Auto) [place] % (Auto) Eos % (Auto) Lymph # [place] # Eos # Seg Neutrophils % Seg Neuts % (Manual) Lymphocytes % (Manual) Monocytes % (Manual) Eosinophils % (Manual) Nucleated RBC % Seg Neutrophils # Seg Neutrophils # Man Lymphocytes # (Manual) Monocytes # (Manual) Eosinophils # (Manual) PT INR APTT Fibrinogen POC ABG pH ABG pH POC ABG pCO2 POC ABG pO2 ABG pO2 ABG HCO3 ABG O2 Saturation ABG Base Excess ABG Hemoglobin Oxyhemoglobin Sodium 146 H D Potassium Chloride Carbon Dioxide BUN 77 H Creatinine Glucose 205 H POC Glucose 209 H 181 H Uric Acid Calcium Phosphorus Magnesium AST ALT 66 H Total Creatine Kinase CK-MB (CK-2) Troponin T NT-Pro-B Natriuret Pep Total Protein 5.5 L Albumin 2.9 L Triglycerides HDL Cholesterol Urine WBC (Auto) Urine Creatinine Urine Total Protein Vancomycin Trough 06/08/19 06/08/19 06/09/19 17:28 23:24 05:20 WBC RBC Hgb Hct MCV MCH MCHC RDW Plt Count Lymph % (Auto) [place] % (Auto) Eos % (Auto) Lymph # [place] # Eos # Seg Neutrophils % Seg Neuts % (Manual) Lymphocytes % (Manual) Monocytes % (Manual) Eosinophils % (Manual) Nucleated RBC % Seg Neutrophils # Seg Neutrophils # Man Lymphocytes # (Manual) Monocytes # (Manual) Eosinophils # (Manual) PT INR APTT Fibrinogen POC ABG pH ABG pH POC ABG pCO2 POC ABG pO2 ABG pO2 ABG HCO3 ABG O2 Saturation ABG Base Excess ABG Hemoglobin Oxyhemoglobin Sodium Potassium Chloride Carbon Dioxide BUN Creatinine Glucose POC Glucose 215 H 200 H 173 H Uric Acid Calcium Phosphorus Magnesium AST ALT Total Creatine Kinase CK-MB (CK-2) Troponin T NT-Pro-B Natriuret Pep Total Protein Albumin Triglycerides HDL Cholesterol Urine WBC (Auto) Urine Creatinine Urine Total Protein Vancomycin Trough 06/09/19 06/09/19 06/09/19 12:07 18:32 23:51 WBC RBC Hgb Hct MCV MCH MCHC RDW Plt Count Lymph % (Auto) [place] % (Auto) Eos % (Auto) Lymph # [place] # Eos # Seg Neutrophils % Seg Neuts % (Manual) Lymphocytes % (Manual) Monocytes % (Manual) Eosinophils % (Manual) Nucleated RBC % Seg Neutrophils # Seg Neutrophils # Man Lymphocytes # (Manual) Monocytes # (Manual) Eosinophils # (Manual) PT INR APTT Fibrinogen POC ABG pH ABG pH POC ABG pCO2 POC ABG pO2 ABG pO2 ABG HCO3 ABG O2 Saturation ABG Base Excess ABG Hemoglobin Oxyhemoglobin Sodium Potassium Chloride Carbon Dioxide BUN Creatinine Glucose POC Glucose 117 H 169 H 147 H Uric Acid Calcium Phosphorus Magnesium AST ALT Total Creatine Kinase CK-MB (CK-2) Troponin T NT-Pro-B Natriuret Pep Total Protein Albumin Triglycerides HDL Cholesterol Urine WBC (Auto) Urine Creatinine Urine Total Protein Vancomycin Trough 06/10/19 06/10/19 06/10/19 05:45 05:45 06:01 WBC 14.6 H RBC Hgb 9.9 L Hct 32.2 L MCV MCH 27 L MCHC 31 L RDW 19.6 H Plt Count Lymph % (Auto) 10.5 L [place] % (Auto) 9.4 H Eos % (Auto) Lymph # [place] # 1.4 H Eos # Seg Neutrophils % 79.9 H Seg Neuts % (Manual) Lymphocytes % (Manual) Monocytes % (Manual) Eosinophils % (Manual) Nucleated RBC % Seg Neutrophils # 11.7 H Seg Neutrophils # Man Lymphocytes # (Manual) Monocytes # (Manual) Eosinophils # (Manual) PT INR APTT Fibrinogen POC ABG pH ABG pH POC ABG pCO2 POC ABG pO2 ABG pO2 ABG HCO3 ABG O2 Saturation ABG Base Excess ABG Hemoglobin Oxyhemoglobin Sodium 150 H Potassium Chloride 108.3 H Carbon Dioxide BUN 49 H Creatinine Glucose 172 H POC Glucose 165 H Uric Acid Calcium Phosphorus Magnesium 1.40 L AST ALT Total Creatine Kinase CK-MB (CK-2) Troponin T NT-Pro-B Natriuret Pep Total Protein Albumin Triglycerides HDL Cholesterol Urine WBC (Auto) Urine Creatinine Urine Total Protein Vancomycin Trough 06/10/19 06/10/19 06/11/19 12:11 18:30 00:02 WBC RBC Hgb Hct MCV MCH MCHC RDW Plt Count Lymph % (Auto) [place] % (Auto) Eos % (Auto) Lymph # [place] # Eos # Seg Neutrophils % Seg Neuts % (Manual) Lymphocytes % (Manual) Monocytes % (Manual) Eosinophils % (Manual) Nucleated RBC % Seg Neutrophils # Seg Neutrophils # Man Lymphocytes # (Manual) Monocytes # (Manual) Eosinophils # (Manual) PT INR APTT Fibrinogen POC ABG pH ABG pH POC ABG pCO2 POC ABG pO2 ABG pO2 ABG HCO3 ABG O2 Saturation ABG Base Excess ABG Hemoglobin Oxyhemoglobin Sodium Potassium Chloride Carbon Dioxide BUN Creatinine Glucose POC Glucose 150 H 154 H 130 H Uric Acid Calcium Phosphorus Magnesium AST ALT Total Creatine Kinase CK-MB (CK-2) Troponin T NT-Pro-B Natriuret Pep Total Protein Albumin Triglycerides HDL Cholesterol Urine WBC (Auto) Urine Creatinine Urine Total Protein Vancomycin Trough 06/11/19 06/11/19 06/11/19 05:33 08:34 12:33 WBC RBC Hgb Hct MCV MCH MCHC RDW Plt Count Lymph % (Auto) [place] % (Auto) Eos % (Auto) Lymph # [place] # Eos # Seg Neutrophils % Seg Neuts % (Manual) Lymphocytes % (Manual) Monocytes % (Manual) Eosinophils % (Manual) Nucleated RBC % Seg Neutrophils # Seg Neutrophils # Man Lymphocytes # (Manual) Monocytes # (Manual) Eosinophils # (Manual) PT INR APTT Fibrinogen POC ABG pH ABG pH POC ABG pCO2 POC ABG pO2 ABG pO2 ABG HCO3 ABG O2 Saturation ABG Base Excess ABG Hemoglobin Oxyhemoglobin Sodium 154 H Potassium Chloride 111.6 H Carbon Dioxide BUN 41 H Creatinine Glucose 147 H POC Glucose 183 H 185 H Uric Acid Calcium Phosphorus Magnesium AST ALT Total Creatine Kinase CK-MB (CK-2) Troponin T NT-Pro-B Natriuret Pep Total Protein Albumin Triglycerides HDL Cholesterol Urine WBC (Auto) Urine Creatinine Urine Total Protein Vancomycin Trough 06/11/19 06/11/19 06/12/19 18:22 23:46 03:21 WBC 11.9 H RBC 3.61 L Hgb 9.9 L Hct 31.7 L MCV MCH 27 L MCHC 31 L RDW 19.3 H Plt Count Lymph % (Auto) 10.6 L [place] % (Auto) 8.6 H Eos % (Auto) Lymph # [place] # 1.0 H Eos # Seg Neutrophils % 80.6 H Seg Neuts % (Manual) Lymphocytes % (Manual) Monocytes % (Manual) Eosinophils % (Manual) Nucleated RBC % Seg Neutrophils # 9.6 H Seg Neutrophils # Man Lymphocytes # (Manual) Monocytes # (Manual) Eosinophils # (Manual) PT INR APTT Fibrinogen POC ABG pH ABG pH POC ABG pCO2 POC ABG pO2 ABG pO2 ABG HCO3 ABG O2 Saturation ABG Base Excess ABG Hemoglobin Oxyhemoglobin Sodium Potassium Chloride Carbon Dioxide BUN Creatinine Glucose POC Glucose 158 H 182 H Uric Acid Calcium Phosphorus Magnesium AST ALT Total Creatine Kinase CK-MB (CK-2) Troponin T NT-Pro-B Natriuret Pep Total Protein Albumin Triglycerides HDL Cholesterol Urine WBC (Auto) Urine Creatinine Urine Total Protein Vancomycin Trough 06/12/19 06/12/19 06/12/19 03:21 06:04 11:28 WBC RBC Hgb Hct MCV MCH MCHC RDW Plt Count Lymph % (Auto) [place] % (Auto) Eos % (Auto) Lymph # [place] # Eos # Seg Neutrophils % Seg Neuts % (Manual) Lymphocytes % (Manual) Monocytes % (Manual) Eosinophils % (Manual) Nucleated RBC % Seg Neutrophils # Seg Neutrophils # Man Lymphocytes # (Manual) Monocytes # (Manual) Eosinophils # (Manual) PT INR APTT Fibrinogen POC ABG pH ABG pH POC ABG pCO2 POC ABG pO2 ABG pO2 ABG HCO3 ABG O2 Saturation ABG Base Excess ABG Hemoglobin Oxyhemoglobin Sodium 148 H Potassium Chloride 107.3 H Carbon Dioxide BUN 34 H Creatinine 0.7 L Glucose 194 H POC Glucose 133 H 167 H Uric Acid Calcium Phosphorus Magnesium 1.40 L AST ALT Total Creatine Kinase CK-MB (CK-2) Troponin T NT-Pro-B Natriuret Pep Total Protein Albumin Triglycerides HDL Cholesterol Urine WBC (Auto) Urine Creatinine Urine Total Protein Vancomycin Trough 06/12/19 06/12/19 06/13/19 18:47 21:27 00:04 WBC RBC Hgb Hct MCV MCH MCHC RDW Plt Count Lymph % (Auto) [place] % (Auto) Eos % (Auto) Lymph # [place] # Eos # Seg Neutrophils % Seg Neuts % (Manual) Lymphocytes % (Manual) Monocytes % (Manual) Eosinophils % (Manual) Nucleated RBC % Seg Neutrophils # Seg Neutrophils # Man Lymphocytes # (Manual) Monocytes # (Manual) Eosinophils # (Manual) PT INR APTT Fibrinogen POC ABG pH ABG pH POC ABG pCO2 POC ABG pO2 ABG pO2 ABG HCO3 ABG O2 Saturation ABG Base Excess ABG Hemoglobin Oxyhemoglobin Sodium Potassium Chloride Carbon Dioxide BUN Creatinine Glucose POC Glucose 210 H 263 H 248 H Uric Acid Calcium Phosphorus Magnesium AST ALT Total Creatine Kinase CK-MB (CK-2) Troponin T NT-Pro-B Natriuret Pep Total Protein Albumin Triglycerides HDL Cholesterol Urine WBC (Auto) Urine Creatinine Urine Total Protein Vancomycin Trough 06/13/19 06/13/19 06/13/19 04:32 05:46 13:30 WBC RBC Hgb Hct MCV MCH MCHC RDW Plt Count Lymph % (Auto) [place] % (Auto) Eos % (Auto) Lymph # [place] # Eos # Seg Neutrophils % Seg Neuts % (Manual) Lymphocytes % (Manual) Monocytes % (Manual) Eosinophils % (Manual) Nucleated RBC % Seg Neutrophils # Seg Neutrophils # Man Lymphocytes # (Manual) Monocytes # (Manual) Eosinophils # (Manual) PT INR APTT Fibrinogen POC ABG pH ABG pH POC ABG pCO2 POC ABG pO2 ABG pO2 ABG HCO3 ABG O2 Saturation ABG Base Excess ABG Hemoglobin Oxyhemoglobin Sodium Potassium Chloride Carbon Dioxide BUN 27 H Creatinine 0.7 L Glucose 253 H POC Glucose 201 H 241 H Uric Acid Calcium Phosphorus Magnesium AST ALT Total Creatine Kinase CK-MB (CK-2) Troponin T NT-Pro-B Natriuret Pep Total Protein Albumin Triglycerides HDL Cholesterol Urine WBC (Auto) Urine Creatinine Urine Total Protein Vancomycin Trough 06/13/19 06/13/19 06/14/19 17:33 23:49 04:50 WBC RBC Hgb Hct MCV MCH MCHC RDW Plt Count Lymph % (Auto) [place] % (Auto) Eos % (Auto) Lymph # [place] # Eos # Seg Neutrophils % Seg Neuts % (Manual) Lymphocytes % (Manual) Monocytes % (Manual) Eosinophils % (Manual) Nucleated RBC % Seg Neutrophils # Seg Neutrophils # Man Lymphocytes # (Manual) Monocytes # (Manual) Eosinophils # (Manual) PT INR APTT Fibrinogen POC ABG pH ABG pH POC ABG pCO2 POC ABG pO2 ABG pO2 ABG HCO3 ABG O2 Saturation ABG Base Excess ABG Hemoglobin Oxyhemoglobin Sodium Potassium Chloride Carbon Dioxide BUN 37 H Creatinine Glucose 256 H POC Glucose 264 H 236 H Uric Acid Calcium Phosphorus Magnesium AST ALT Total Creatine Kinase CK-MB (CK-2) Troponin T NT-Pro-B Natriuret Pep Total Protein Albumin Triglycerides HDL Cholesterol Urine WBC (Auto) Urine Creatinine Urine Total Protein Vancomycin Trough 06/14/19 06/14/19 06/14/19 05:26 12:31 18:32 WBC RBC Hgb Hct MCV MCH MCHC RDW Plt Count Lymph % (Auto) [place] % (Auto) Eos % (Auto) Lymph # [place] # Eos # Seg Neutrophils % Seg Neuts % (Manual) Lymphocytes % (Manual) Monocytes % (Manual) Eosinophils % (Manual) Nucleated RBC % Seg Neutrophils # Seg Neutrophils # Man Lymphocytes # (Manual) Monocytes # (Manual) Eosinophils # (Manual) PT INR APTT Fibrinogen POC ABG pH ABG pH POC ABG pCO2 POC ABG pO2 ABG pO2 ABG HCO3 ABG O2 Saturation ABG Base Excess ABG Hemoglobin Oxyhemoglobin Sodium Potassium Chloride Carbon Dioxide BUN Creatinine Glucose POC Glucose 239 H 116 H 247 H Uric Acid Calcium Phosphorus Magnesium AST ALT Total Creatine Kinase CK-MB (CK-2) Troponin T NT-Pro-B Natriuret Pep Total Protein Albumin Triglycerides HDL Cholesterol Urine WBC (Auto) Urine Creatinine Urine Total Protein Vancomycin Trough 06/14/19 06/15/19 06/15/19 23:57 04:05 05:55 WBC RBC Hgb Hct MCV MCH MCHC RDW Plt Count Lymph % (Auto) [place] % (Auto) Eos % (Auto) Lymph # [place] # Eos # Seg Neutrophils % Seg Neuts % (Manual) Lymphocytes % (Manual) Monocytes % (Manual) Eosinophils % (Manual) Nucleated RBC % Seg Neutrophils # Seg Neutrophils # Man Lymphocytes # (Manual) Monocytes # (Manual) Eosinophils # (Manual) PT INR APTT Fibrinogen POC ABG pH ABG pH POC ABG pCO2 POC ABG pO2 ABG pO2 ABG HCO3 ABG O2 Saturation ABG Base Excess ABG Hemoglobin Oxyhemoglobin Sodium Potassium Chloride Carbon Dioxide BUN 46 H Creatinine 0.7 L Glucose 265 H POC Glucose 206 H 265 H Uric Acid Calcium Phosphorus Magnesium AST ALT Total Creatine Kinase CK-MB (CK-2) Troponin T NT-Pro-B Natriuret Pep Total Protein Albumin Triglycerides HDL Cholesterol Urine WBC (Auto) Urine Creatinine Urine Total Protein Vancomycin Trough 06/15/19 06/15/19 06/15/19 12:08 18:45 23:41 WBC RBC Hgb Hct MCV MCH MCHC RDW Plt Count Lymph % (Auto) [place] % (Auto) Eos % (Auto) Lymph # [place] # Eos # Seg Neutrophils % Seg Neuts % (Manual) Lymphocytes % (Manual) Monocytes % (Manual) Eosinophils % (Manual) Nucleated RBC % Seg Neutrophils # Seg Neutrophils # Man Lymphocytes # (Manual) Monocytes # (Manual) Eosinophils # (Manual) PT INR APTT Fibrinogen POC ABG pH ABG pH POC ABG pCO2 POC ABG pO2 ABG pO2 ABG HCO3 ABG O2 Saturation ABG Base Excess ABG Hemoglobin Oxyhemoglobin Sodium Potassium Chloride Carbon Dioxide BUN Creatinine Glucose POC Glucose 224 H 177 H 193 H Uric Acid Calcium Phosphorus Magnesium AST ALT Total Creatine Kinase CK-MB (CK-2) Troponin T NT-Pro-B Natriuret Pep Total Protein Albumin Triglycerides HDL Cholesterol Urine WBC (Auto) Urine Creatinine Urine Total Protein Vancomycin Trough 06/16/19 06/16/19 06/16/19 05:00 05:00 05:40 WBC 11.9 H RBC 3.24 L Hgb 9.0 L Hct 29.0 L MCV MCH MCHC 31 L RDW 18.6 H Plt Count 111 L Lymph % (Auto) [place] % (Auto) Eos % (Auto) Lymph # [place] # Eos # Seg Neutrophils % Seg Neuts % (Manual) 92.0 H Lymphocytes % (Manual) 2.0 L Monocytes % (Manual) Eosinophils % (Manual) Nucleated RBC % Seg Neutrophils # Seg Neutrophils # Man 10.9 H Lymphocytes # (Manual) 0.2 L Monocytes # (Manual) Eosinophils # (Manual) PT INR APTT Fibrinogen POC ABG pH ABG pH POC ABG pCO2 POC ABG pO2 ABG pO2 ABG HCO3 ABG O2 Saturation ABG Base Excess ABG Hemoglobin Oxyhemoglobin Sodium Potassium Chloride Carbon Dioxide 33 H BUN 49 H Creatinine 0.7 L Glucose 264 H POC Glucose 247 H Uric Acid Calcium Phosphorus Magnesium AST ALT Total Creatine Kinase CK-MB (CK-2) Troponin T NT-Pro-B Natriuret Pep Total Protein Albumin Triglycerides HDL Cholesterol Urine WBC (Auto) Urine Creatinine Urine Total Protein Vancomycin Trough 06/16/19 06/16/19 06/16/19 12:03 17:11 18:11 WBC RBC Hgb Hct MCV MCH MCHC RDW Plt Count Lymph % (Auto) [place] % (Auto) Eos % (Auto) Lymph # [place] # Eos # Seg Neutrophils % Seg Neuts % (Manual) Lymphocytes % (Manual) Monocytes % (Manual) Eosinophils % (Manual) Nucleated RBC % Seg Neutrophils # Seg Neutrophils # Man Lymphocytes # (Manual) Monocytes # (Manual) Eosinophils # (Manual) PT INR APTT Fibrinogen POC ABG pH ABG pH 7.289 L POC ABG pCO2 POC ABG pO2 ABG pO2 399.3 H ABG HCO3 30.1 H ABG O2 Saturation 99.6 H ABG Base Excess ABG Hemoglobin 8.6 L Oxyhemoglobin Sodium Potassium Chloride Carbon Dioxide BUN Creatinine Glucose POC Glucose 252 H 254 H Uric Acid Calcium Phosphorus Magnesium AST ALT Total Creatine Kinase CK-MB (CK-2) Troponin T NT-Pro-B Natriuret Pep Total Protein Albumin Triglycerides HDL Cholesterol Urine WBC (Auto) Urine Creatinine Urine Total Protein Vancomycin Trough 06/16/19 06/17/19 06/17/19 23:16 05:30 05:53 WBC RBC Hgb Hct MCV MCH MCHC RDW Plt Count Lymph % (Auto) [place] % (Auto) Eos % (Auto) Lymph # [place] # Eos # Seg Neutrophils % Seg Neuts % (Manual) Lymphocytes % (Manual) Monocytes % (Manual) Eosinophils % (Manual) Nucleated RBC % Seg Neutrophils # Seg Neutrophils # Man Lymphocytes # (Manual) Monocytes # (Manual) Eosinophils # (Manual) PT INR APTT Fibrinogen POC ABG pH ABG pH POC ABG pCO2 POC ABG pO2 ABG pO2 ABG HCO3 ABG O2 Saturation ABG Base Excess ABG Hemoglobin Oxyhemoglobin Sodium 147 H Potassium Chloride Carbon Dioxide 32 H BUN 60 H Creatinine Glucose 205 H POC Glucose 238 H 211 H Uric Acid Calcium Phosphorus Magnesium AST ALT Total Creatine Kinase CK-MB (CK-2) Troponin T NT-Pro-B Natriuret Pep Total Protein Albumin Triglycerides HDL Cholesterol Urine WBC (Auto) Urine Creatinine Urine Total Protein Vancomycin Trough 06/17/19 06/17/19 06/17/19 09:50 12:27 12:45 WBC RBC 2.79 L Hgb 8.2 L Hct 24.6 L MCV MCH MCHC RDW 18.5 H Plt Count 95 L Lymph % (Auto) [place] % (Auto) Eos % (Auto) Lymph # [place] # Eos # Seg Neutrophils % Seg Neuts % (Manual) Lymphocytes % (Manual) Monocytes % (Manual) Eosinophils % (Manual) Nucleated RBC % Seg Neutrophils # Seg Neutrophils # Man Lymphocytes # (Manual) Monocytes # (Manual) Eosinophils # (Manual) PT INR APTT Fibrinogen 194 L POC ABG pH ABG pH POC ABG pCO2 POC ABG pO2 ABG pO2 ABG HCO3 ABG O2 Saturation ABG Base Excess ABG Hemoglobin Oxyhemoglobin Sodium Potassium Chloride Carbon Dioxide BUN Creatinine Glucose POC Glucose 224 H Uric Acid Calcium Phosphorus Magnesium AST ALT Total Creatine Kinase CK-MB (CK-2) Troponin T NT-Pro-B Natriuret Pep Total Protein Albumin Triglycerides HDL Cholesterol Urine WBC (Auto) Urine Creatinine Urine Total Protein Vancomycin Trough 06/17/19 06/17/19 06/17/19 18:41 22:00 23:23 WBC RBC Hgb Hct MCV MCH MCHC RDW Plt Count Lymph % (Auto) [place] % (Auto) Eos % (Auto) Lymph # [place] # Eos # Seg Neutrophils % Seg Neuts % (Manual) Lymphocytes % (Manual) Monocytes % (Manual) Eosinophils % (Manual) Nucleated RBC % Seg Neutrophils # Seg Neutrophils # Man Lymphocytes # (Manual) Monocytes # (Manual) Eosinophils # (Manual) PT INR APTT Fibrinogen POC ABG pH ABG pH POC ABG pCO2 POC ABG pO2 ABG pO2 ABG HCO3 ABG O2 Saturation ABG Base Excess ABG Hemoglobin Oxyhemoglobin Sodium Potassium Chloride Carbon Dioxide BUN Creatinine Glucose POC Glucose 198 H 166 H 171 H Uric Acid Calcium Phosphorus Magnesium AST ALT Total Creatine Kinase CK-MB (CK-2) Troponin T NT-Pro-B Natriuret Pep Total Protein Albumin Triglycerides HDL Cholesterol Urine WBC (Auto) Urine Creatinine Urine Total Protein Vancomycin Trough 06/17/19 06/18/19 06/18/19 Unknown 03:50 04:25 WBC RBC Hgb Hct MCV MCH MCHC RDW Plt Count Lymph % (Auto) [place] % (Auto) Eos % (Auto) Lymph # [place] # Eos # Seg Neutrophils % Seg Neuts % (Manual) Lymphocytes % (Manual) Monocytes % (Manual) Eosinophils % (Manual) Nucleated RBC % Seg Neutrophils # Seg Neutrophils # Man Lymphocytes # (Manual) Monocytes # (Manual) Eosinophils # (Manual) PT INR APTT Fibrinogen POC ABG pH ABG pH 7.564 H 7.499 H POC ABG pCO2 POC ABG pO2 ABG pO2 238.6 H 130.8 H ABG HCO3 33.6 H 32.5 H ABG O2 Saturation 99.4 H ABG Base Excess 10.6 H 8.5 H ABG Hemoglobin 7.9 L 8.8 L Oxyhemoglobin Sodium 151 H Potassium 3.4 L Chloride Carbon Dioxide BUN 66 H Creatinine Glucose 189 H POC Glucose Uric Acid Calcium Phosphorus Magnesium AST ALT Total Creatine Kinase CK-MB (CK-2) Troponin T NT-Pro-B Natriuret Pep Total Protein Albumin Triglycerides HDL Cholesterol Urine WBC (Auto) Urine Creatinine Urine Total Protein Vancomycin Trough 06/18/19 06/18/19 06/18/19 05:25 05:27 11:50 WBC RBC 2.61 L Hgb 7.4 L Hct 22.9 L MCV MCH MCHC RDW 19.9 H Plt Count 81 L Lymph % (Auto) 12.9 L [place] % (Auto) 7.7 H Eos % (Auto) Lymph # 1.1 L [place] # Eos # Seg Neutrophils % 77.4 H Seg Neuts % (Manual) Lymphocytes % (Manual) Monocytes % (Manual) Eosinophils % (Manual) Nucleated RBC % Seg Neutrophils # Seg Neutrophils # Man Lymphocytes # (Manual) Monocytes # (Manual) Eosinophils # (Manual) PT INR APTT Fibrinogen POC ABG pH ABG pH POC ABG pCO2 POC ABG pO2 ABG pO2 ABG HCO3 ABG O2 Saturation ABG Base Excess ABG Hemoglobin Oxyhemoglobin Sodium Potassium Chloride Carbon Dioxide BUN Creatinine Glucose POC Glucose 186 H 263 H Uric Acid Calcium Phosphorus Magnesium AST ALT Total Creatine Kinase CK-MB (CK-2) Troponin T NT-Pro-B Natriuret Pep Total Protein Albumin Triglycerides HDL Cholesterol Urine WBC (Auto) Urine Creatinine Urine Total Protein Vancomycin Trough Chest x-ray: report reviewed, image reviewed (atelectasis RLL)
--- NOTE | 2019-06-18 14:09 | Progress Note ---
Assessment and Plan - Patient Problems (1) Acute kidney injury Current Visit: Yes Status: Acute Plan to address problem: Acute kidney injury Baseline creatinine unknown Current creatinine 1.1 Kidney function is improving Chest x-ray with improvement in lung aeration He is no longer dialysis dependent Plan to remove PermCath next week if renal function continues to be stable (2) Hypercapnic respiratory failure Current Visit: Yes Status: Acute Qualifiers: Chronicity: acute on chronic Qualified Code(s): J96.22 - Acute and chronic respiratory failure with hypercapnia Plan to address problem: Acute on chronic respiratory failure with hypercapnia Was reintubated following desaturation episode Patient is currently intubated chest x-ray with improvement in lung aeration Given morbid obesity. Obesity hypoventilation Wean oxygen as tolerated (3) Anemia Current Visit: Yes Status: Acute Plan to address problem: Mild anemia Monitor CBC (4) Anemia Current Visit: Yes Status: Acute Plan to address problem: anemia secondary to chronic inflammation and underlying acute illness Monitor CBC (5) Acute hypernatremia Current Visit: Yes Status: Acute Plan to address problem: Hypernatremia : Secondary to impaired access to free water We'll add 5% dextrose water at 75 mL an hour and recheck renal function panel. Subjective Principal diagnosis: HF; acute hypoxemic resp failure, SIRS, CARLA Interval history: 34-year-old gentleman with morbid obesity, found with cyanosis difficulty with breathing and brought to the emergency room he required intubation review of systems unobtainable patient remains intubated and FiO2 100% he has had wor sening renal function nephrology consulted for this. He was subsequently found to have a fever infectious diseases is following she initially related improvement. Acute kidney injury, subsequent worsening in the setting of elevated vancomycin levels Patient seen today He desaturated on 06/16 primarily lost pulse briefly and was reintubated Has lower extremity edema Currently off hemodialysis Objective - Vital Signs Vital signs: Vital Signs - 12hr 06/18/19 06/18/19 06/18/19 02:08 02:15 02:30 Temperature Pulse Rate 98 H 98 H 96 H Respiratory 20 14 Rate Blood Pressure 148/68 144/56 O2 Sat by Pulse 100 100 100 Oximetry 06/18/19 06/18/19 06/18/19 02:45 03:00 03:15 Temperature Pulse Rate 95 H 90 87 Respiratory 14 20 20 Rate Blood Pressure 131/56 115/42 121/46 O2 Sat by Pulse 100 99 99 Oximetry 06/18/19 06/18/19 06/18/19 03:20 03:30 03:45 Temperature 99.1 F Pulse Rate 86 94 H Respiratory 20 18 Rate Blood Pressure 119/46 138/63 O2 Sat by Pulse 99 100 Oximetry 06/18/19 06/18/19 06/18/19 04:00 04:15 04:25 Temperature Pulse Rate 98 H 101 H Respiratory 17 17 Rate Blood Pressure 138/63 137/54 O2 Sat by Pulse 100 100 100 Oximetry 06/18/19 06/18/19 06/18/19 04:30 04:45 05:00 Temperature Pulse Rate 97 H 94 H 97 H Respiratory 10 L 15 15 Rate Blood Pressure 126/53 137/56 130/53 O2 Sat by Pulse 99 98 98 Oximetry 06/18/19 06/18/19 06/18/19 05:15 05:30 05:32 Temperature Pulse Rate 96 H 97 H 97 H Respiratory 13 15 Rate Blood Pressure 132/52 131/59 O2 Sat by Pulse 99 100 100 Oximetry 06/18/19 06/18/19 06/18/19 05:45 06:00 06:15 Temperature Pulse Rate 92 H 96 H 92 H Respiratory 16 11 L 16 Rate Blood Pressure 137/58 127/67 118/42 O2 Sat by Pulse 97 96 98 Oximetry 06/18/19 06/18/19 06/18/19 06:30 06:45 07:00 Temperature Pulse Rate 89 87 87 Respiratory 16 16 16 Rate Blood Pressure 117/44 120/46 116/46 O2 Sat by Pulse 96 96 97 Oximetry 06/18/19 06/18/19 06/18/19 07:15 07:30 07:46 Temperature Pulse Rate 94 H 102 H 98 H Respiratory 16 13 16 Rate Blood Pressure 157/83 124/71 124/71 O2 Sat by Pulse 99 98 98 Oximetry 06/18/19 06/18/19 06/18/19 08:00 08:20 08:30 Temperature 100.1 F H Pulse Rate 95 H 99 H 98 H Respiratory 12 22 14 Rate Blood Pressure 124/71 124/71 124/71 O2 Sat by Pulse 97 100 Oximetry 06/18/19 06/18/19 06/18/19 08:46 09:00 09:04 Temperature Pulse Rate 99 H 96 H 95 H Respiratory 14 9 L Rate Blood Pressure 97/35 154/74 154/74 O2 Sat by Pulse 97 98 Oximetry 06/18/19 06/18/19 06/18/19 09:15 09:30 09:45 Temperature Pulse Rate 88 90 88 Respiratory 11 L 7 L 16 Rate Blood Pressure 152/61 128/50 128/47 O2 Sat by Pulse 97 96 95 Oximetry 06/18/19 06/18/19 06/18/19 10:00 10:15 10:30 Temperature Pulse Rate 88 87 97 H Respiratory 16 16 19 Rate Blood Pressure 130/54 135/61 143/78 O2 Sat by Pulse 96 98 98 Oximetry 06/18/19 06/18/19 06/18/19 10:45 11:00 11:15 Temperature Pulse Rate 95 H 95 H 88 Respiratory 16 14 14 Rate Blood Pressure 134/60 133/58 141/63 O2 Sat by Pulse 98 100 100 Oximetry 06/18/19 06/18/19 06/18/19 11:30 11:45 12:00 Temperature 99.3 F Pulse Rate 88 89 93 H Respiratory 12 17 12 Rate Blood Pressure 116/43 132/62 136/57 O2 Sat by Pulse 98 98 Oximetry 06/18/19 06/18/19 06/18/19 12:15 12:30 12:45 Temperature Pulse Rate 91 H 93 H 90 Respiratory 17 9 L 15 Rate Blood Pressure 130/55 134/60 136/54 O2 Sat by Pulse 100 100 99 Oximetry 06/18/19 06/18/19 13:00 13:15 Temperature Pulse Rate 91 H 87 Respiratory 12 Rate Blood Pressure 132/51 139/52 O2 Sat by Pulse 99 100 Oximetry - General Appearance General appearance: obese EENT: ATNC, PERRL Neck: no JVD Respiratory: Present: Clear to Ascultation Cardiology: regular, S1S2 Gastrointestinal: normal, normoactive bowel sounds Integumentary: no rash Neurologic: CN 3-12 intact, other (awake) Psychiatric: depressed - Lab 06/18/19 05:25 06/18/19 04:25 Most recent lab results ABG pH 7.499 pH Units (7.350-7.450) H 06/18/19 03:50 ABG pCO2 42.8 mm Hg 06/18/19 03:50 ABG pO2 130.8 mm Hg (80.0-90.0) H 06/18/19 03:50 ABG HCO3 32.5 mmol/L (20.0-26.0) H 06/18/19 03:50 ABG O2 Saturation 98.7 % (95.0-99.0) 06/18/19 03:50 Calcium 9.4 mg/dL (8.4-10.2) 06/18/19 04:25 Phosphorus 3.70 mg/dL (2.5-4.5) 06/10/19 05:45 Magnesium 1.40 mg/dL (1.7-2.3) L 06/12/19 03:21 Urine Creatinine 292.8 mg/dL (0.1-20.0) H 05/07/19 22:40 Urine Sodium 11 mmol/L 05/07/19 22:40 Urine Total Protein 269 mg/dL (5-11.8) H 05/07/19 22:40 - Imaging Chest x-ray: image reviewed (cxr without peripheral edema. ) Medications & Allergies - Medications Allergies/Adverse Reactions: Allergies No Known Allergies Allergy (Verified 05/01/19 20:27) Home Medications: Home Medications Medication Instructions Recorded Confirmed Last Taken Type No Known Home Medications [No 05/03/19 05/03/19 Unknown History Reported Home Medications] Active Medications: Generic Name Dose Route Start Last Admin Trade Name Freq PRN Reason Stop Dose Admin Acetaminophen 650 mg 06/17/19 10:00 06/17/19 21:20 Tylenol PO 650 mg Q6H PRN Administration FOR TEMP >/=100.4 Lipase/Protease/Amylase 1 each 05/14/19 15:01 Pancremannie Fletcher 10,500 Unit FEEDTUBE PRN PRN For Clogged Feeding Tube Clonidine HCl 0.3 mg 06/06/19 20:00 06/13/19 20:28 Catapres-Tts Patch TD 0.3 mg Lao VICKEY Administration Dextrose 50 gm 05/01/19 20:24 D50w (25gm) Vial IV Q30MIN PRN Hypoglycemia Protocol Famotidine 20 mg 06/17/19 10:00 06/18/19 10:29 Pepcid PO 20 mg BID VICKEY Administration Ferrous Sulfate 308 mg 06/18/19 12:00 06/18/19 12:38 Ferrous Sulfate PO 308 mg QDAY VICKEY Administration Hydrophilic Ointment 1 applic 06/16/19 17:34 Vaseline Lip Therapy TP Q2HR PRN Dry Lips Propofol 1,000 mg in 100 mls @ 7.716 mls/hr 06/16/19 21:00 06/18/19 12:42 Diprivan 10 Mg/Ml IV 15 mcg/kg/min TITR VICKEY 23.148 mls/hr Administration Protocol 5 MCG/KG/MIN Cefepime HCl 2 gm in 100 mls @ 200 mls/hr 06/17/19 14:00 06/18/19 05:00 Cefepime/Ns 2 Gm/100 Ml IV 200 mls/hr Q8HR VICKEY Administration Protocol Fentanyl Citrate 2,000 mcg in 100 mls @ 12.86 mls/hr 06/17/19 14:00 Fentanyl Drip Premix IV TITR VICKEY Protocol 1 MCG/KG/HR Dextrose 1,000 mls @ 75 mls/hr 06/18/19 11:00 06/18/19 10:30 D5w IV 42 mls/hr DIRECT VICKEY Administration Insulin Glargine 15 units 06/16/19 22:00 06/17/19 22:11 Lantus SUB-Q 15 units QHS VICKEY Administration Insulin Human Lispro 0 unit 06/01/19 14:00 06/18/19 12:38 Humalog SUB-Q 6 unit Q6HR VICKEY Administration Protocol Labetalol HCl 10 mg 06/11/19 22:48 06/16/19 19:47 Labetalol IV 10 mg Q4H PRN Administration BP >170/105; hold for HR <60 Labetalol HCl 200 mg 06/13/19 11:36 06/18/19 06:00 Labetalol PO Not Given Q8HR VICKEY Levetiracetam 750 mg 06/16/19 10:00 06/18/19 10:29 Keppra PO 750 mg BID VICKEY Administration Methylprednisolone Sodium Succinate 20 mg 06/14/19 18:00 06/18/19 10:36 Solu-Medrol IV 20 mg Q8H VICKEY Administration Minoxidil 2.5 mg 06/06/19 22:00 06/18/19 10:29 Loniten PO 2.5 mg BID VICKEY Administration Multi-Ingred Cream/Lotion/Oil/Oint 1 applic 06/16/19 18:00 Artificial Tears Ophth Oint OU Q4HR PRN Dry Eye(s) Simple Syrup 15 ml 05/14/19 15:01 Simple Syrup FEEDTUBE PRN PRN Hypoglycemia Simple Syrup 30 ml 05/14/19 15:01 Simple Syrup FEEDTUBE PRN PRN Hypoglycemia Sodium Bicarbonate 325 mg 05/14/19 15:01 Sodium Bicarbonate FEEDTUBE PRN PRN For Clogged Feeding Tube
--- NOTE | 2019-06-18 19:04 | Vascular Lab Report ---
DUPLEX DOPPLER LEFT UPPER EXTREMITY VEINS INDICATION: edema and fever FINDINGS: There is no thrombus within the deep veins of the left upper extremity from the jugular vein to the f orearm veins. There is normal compression and augmentation on spectral analysis. IMPRESSION: No sonographic evidence for DVT in the left upper extremity. DUPLEX DOPPLER RIGHT UPPER EXTREMITY VEINS INDICATION: edema and fever FINDINGS: There is no thrombus within the deep veins of the right upper extremity from the jugular vein to the forearm veins. There is normal compression and augmentation on spectral analysis. IMPRESSION: No sonographic evidence for DVT in the right upper extremity. Signer Name: Bony Israel MD Signed: 06/18/2019 6:59 PM Workstation Name: [id number]
--- NOTE | 2019-06-18 19:04 | Vascular Lab Report ---
DUPLEX DOPPLER LOWER EXTREMITY VEINS, BILATERAL INDICATION: LE edema. TECHNIQUE: Duplex doppler imaging was performed through the veins of both lower extremities using venous ness jaskaran and other maneuvers. COMPARISON: None available. FINDINGS: Right Common femoral vein: Negative. Right Superficial femoral vein: Negative. Right Popliteal vein: Negative. Right Calf veins: Negative. Left Common femoral vein: Negative. Left Superficial femoral vein: Negative. Left Popliteal vein: Negative. Left Calf veins: Negative. Additional findings: None. IMPRESSION: 1. No sonographic evidence for DVT in either lower extremity. Signer Name: Bony Israel MD Signed: 06/18/2019 7:00 PM Workstation Name: [id number]
[2019-06-18] MEDS: INSULIN GLARGINE 100 UNITS/ML SUB-Q SCH (21:30)
[2019-06-19] MEDS: DEXTROSE 5% IN WATER 1,000 ML IV SCH ×2 (02:57→16:18)
--- NOTE | 2019-06-19 03:16 | XRay Report ---
CHEST 1 VIEW INDICATION / CLINICAL INFORMATION: follow up respiratory failure. COMPARISON: 06/18/2019 FINDINGS: SUPPORT DEVICES: Tubes and lines appear unchanged HEART / MEDIASTINUM: Unchanged LUNGS / PLEURA: There is mild basilar atelectasis.. No pneumothorax. ADDITIONAL FINDINGS: No significant additional findings. IMPRESSION: 1. There is mild basilar atelectasis. Signer Name: Bony Israel MD Signed: 06/19/2019 3:11 AM Workstation Name: [id number]
[2019-06-19] MEDS: methylPREDNISolone Sod Succinate 40 MG/1 ML INJ IV SCH ×3 (04:13→19:11)
[2019-06-19 04:17] LABS: ABG Base Excess 7.6 mmol/L (-2.0-3.0); ABG HCO3 32.3 mmol/L (20.0-26.0); ABG Methemoglobin 0.5 % (0.0-1.5); ABG Oxygen Saturation 97.9 % (95.0-99.0); ABG PCO2 47.3 mm Hg; ABG PH 7.452 pH Units (7.350-7.450); ABG PO2 105.5 mm Hg (80.0-90.0)
[2019-06-19 05:09] LABS: Basophils % (Auto) 0.5 % (0.0-1.8); Eosinophils # (Auto) 0.3 K/mm3 (0.0-0.4); Eosinophils % (Auto) 4.7 % (0.0-4.3); Hematocrit 23.1 % (35.5-45.6); Hemoglobin 7.5 gm/dl (11.8-15.2); Lymphocytes # (Auto) 0.6 K/mm3 (1.2-5.4); Lymphocytes % (Auto) 8.8 % (13.4-35.0); Mean Corpuscular HGB Conc 33 % (32-34); Mean Corpuscular Volume 87 fl (84-94); Monocytes # (Auto) 0.7 K/mm3 (0.0-0.8); Monocytes % (Auto) 9.4 % (0.0-7.3); Red Blood Count 2.65 M/mm3 (3.65-5.03); Red Cell Distribution Width 19.4 % (13.2-15.2)
[2019-06-19 05:18] LABS: Platelet Count 74 K/mm3 (140-440)
[2019-06-19] MEDS: CEFEPIME/NS 2 GM/100 ML 2 GM/100 ML BAG IV SCH ×3 (05:24→22:53)
[2019-06-19] MEDS: INSULIN LISPRO 100 UNIT/ML SUB-Q SCH ×3 (05:31→19:08)
[2019-06-19 05:42] LABS: BUN/Creatinine Ratio 70; Blood Urea Nitrogen 56 mg/dL (9-20); Calcium 9.4 mg/dL (8.4-10.2); Hemolysis Index 4
--- NOTE | 2019-06-19 06:09 | Event Note ---
Date: 06/19/19 [id number] pharmacy eval will help ? antibiotics related low PLt anemia
[2019-06-19] MEDS ORDERED: MAGNESIUM SULFATE 2 GM/50 ML BAG IV ONE (09:00)
[2019-06-19] MEDS: MINOXIDIL 2.5 MG TAB PO SCH ×2 (09:56→22:52)
[2019-06-19] MEDS: POTASSIUM CHLORIDE 20 MEQ PACKET FEEDTUBE SCH (09:56)
[2019-06-19] MEDS: levETIRAcetam 500 MG/5 ML ORAL LIQD PO SCH ×2 (09:56→22:53)
[2019-06-19] MEDS: FERROUS SULFATE 308 MG (62mg Elemental Iron) / 7 ML ELIXIR PO SCH (09:56)
[2019-06-19] MEDS: FAMOTIDINE 20 MG TAB PO SCH ×2 (09:57→22:52)
[2019-06-19] MEDS: VALSARTAN 160MG TAB FEEDTUBE SCH ×2 (12:43→22:52)
--- NOTE | 2019-06-19 14:21 | Progress Note ---
Assessment and Plan Assessment and plan: 34-year-old man with morbid obesity was brought to the hospital for shortness of breath and insomnia. He was found to have severe hypoxia and bradycardia who then became pulseless, he was cyanotic and he was intubated after receiving CPR with 2 rounds of epinephrine. Hypertensive emergency off cardene drip since 06/13, optimize BP meds -Of note clonidine patch could not be found on the patient, therefore it was discontinued today Fever Flu neg, UA neg, cxr no infiltrate, BC in progress ID consult, monitor off abx Acute respiratory failure with hypoxia and hypercapnia on mechanical ventilator greater than 96 hours -Obesity hypoventilation Patient extubated 06/07 after being on the ventilator for 37 days, now reintub ated on 06/16 plan for trache/peg, dw GS Status post cardiac arrest anoxic/ischemic brain injury Patient's mentation is improved ., EEG was negative for seizures and neurology consult appreciated. Severe malnutrition Dysphasia; dw with his mom, she is agreeable to PEG tube, GS consulted -Dietitian input appreciated, continue tube feeds Anemia of chronic disease; transfuse to keep hemoglobin above 7, iron supplements Thrombocytopenia; worsening, question if this is HIT. Will send HIT labs, hold Lovenox, hematology consult appreciated Acute kidney injury due to ATN Dialysis now put on hold, kidney function improving Nephrology input appreciated, tolerating diuretics -PC will be dc by neph on Friday if continues to improve Fluid overload Status post diuretics which were dosed by judo instructor. Nephrology does not recommend further diuresis at this time. hypernatremia; restart d5w judiciously hypokalemia; replete Morbid obesity; will need weight loss program upon discharge DVT prophylaxis; scd for now Disposition; does not have a pay source for rehab, therefore home with home health services CCT 33 minutes JOHANNA is janna Alexander [phone] History Interval history: No fever No vomiting no seizure-like activity No diarrhea No agitation No obvious discomfort Hospitalist Physical - Physical exam Narrative exam: General.: Morbidly obese HEENT: Moist mucous membranes, extraocular muscles intact, no lymphadenopathy Neck: supple Cardiac: S1-S2 heard Lungs: clear to auscultation bilaterally Abdomen: soft , nontender, nondistended, bowel sounds positive Extremities: edema in all extremities, but improved Skin: no rash or lesions Neurologic: He is awake and alert. He is currently nonverbal. But he nods and shakes his head. He obeys commands, intubated Psych: calm, - Constitutional Vitals: Temp Pulse Resp BP Pulse Ox 98.8 F 92 H 17 147/69 96 06/19/19 12:00 06/19/19 14:10 06/19/19 13:00 06/19/19 14:10 06/19/19 13:00 General appearance: Present: no acute distress Results - Labs CBC & Chem 7: 06/19/19 04:30 06/19/19 04:30 Labs: Laboratory Last Values WBC 6.9 K/mm3 (4.5-11.0) 06/19/19 04:30 RBC 2.65 M/mm3 (3.65-5.03) L 06/19/19 04:30 Hgb 7.5 gm/dl (11.8-15.2) L 06/19/19 04:30 Hct 23.1 % (35.5-45.6) L 06/19/19 04:30 MCV 87 fl (84-94) 06/19/19 04:30 MCH 28 pg (28-32) 06/19/19 04:30 MCHC 33 % (32-34) 06/19/19 04:30 RDW 19.4 % (13.2-15.2) H 06/19/19 04:30 Plt Count 74 K/mm3 (140-440) L 06/19/19 04:30 Lymph % (Auto) 8.8 % (13.4-35.0) L 06/19/19 04:30 Rogers % (Auto) 9.4 % (0.0-7.3) H 06/19/19 04:30 Eos % (Auto) 4.7 % (0.0-4.3) H 06/19/19 04:30 Baso % (Auto) 0.5 % (0.0-1.8) 06/19/19 04:30 Lymph # 0.6 K/mm3 (1.2-5.4) L 06/19/19 04:30 Rogers # 0.7 K/mm3 (0.0-0.8) 06/19/19 04:30 Eos # 0.3 K/mm3 (0.0-0.4) 06/19/19 04:30 Baso # 0.0 K/mm3 (0.0-0.1) 06/19/19 04:30 Add Manual Diff Complete 06/16/19 05:00 Total Counted 100 06/16/19 05:00 Seg Neutrophils % 76.6 % (40.0-70.0) H 06/19/19 04:30 Seg Neuts % (Manual) 92.0 % (40.0-70.0) H 06/16/19 05:00 Band Neutrophils % 0 % 06/16/19 05:00 Lymphocytes % (Manual) 2.0 % (13.4-35.0) L 06/16/19 05:00 Reactive Lymphs % (Man) 0 % 06/16/19 05:00 Monocytes % (Manual) 6.0 % (0.0-7.3) 06/16/19 05:00 Eosinophils % (Manual) 0 % (0.0-4.3) 06/16/19 05:00 Basophils % (Manual) 0 % (0.0-1.8) 06/16/19 05:00 Metamyelocytes % 0 % 06/16/19 05:00 Myelocytes % 0 % 06/16/19 05:00 Promyelocytes % 0 % 06/16/19 05:00 Blast Cells % 0 % 06/16/19 05:00 Nucleated RBC % Not Reportable 06/16/19 05:00 Seg Neutrophils # 5.3 K/mm3 (1.8-7.7) 06/19/19 04:30 Seg Neutrophils # Man 10.9 K/mm3 (1.8-7.7) H 06/16/19 05:00 Band Neutrophils # 0.0 K/mm3 06/16/19 05:00 Lymphocytes # (Manual) 0.2 K/mm3 (1.2-5.4) L 06/16/19 05:00 Abs React Lymphs (Man) 0.0 K/mm3 06/16/19 05:00 Monocytes # (Manual) 0.7 K/mm3 (0.0-0.8) 06/16/19 05:00 Eosinophils # (Manual) 0.0 K/mm3 (0.0-0.4) 06/16/19 05:00 Basophils # (Manual) 0.0 K/mm3 (0.0-0.1) 06/16/19 05:00 Metamyelocytes # 0.0 K/mm3 06/16/19 05:00 Myelocytes # 0.0 K/mm3 06/16/19 05:00 Promyelocytes # 0.0 K/mm3 06/16/19 05:00 Blast Cells # 0.0 K/mm3 06/16/19 05:00 WBC Morphology Not Reportable 06/16/19 05:00 Hypersegmented Neuts Not Reportable 06/16/19 05:00 Hyposegmented Neuts Not Reportable 06/16/19 05:00 Hypogranular Neuts Not Reportable 06/16/19 05:00 Smudge Cells Not Reportable 06/16/19 05:00 Toxic Granulation Not Reportable 06/16/19 05:00 Toxic Vacuolation Not Reportable 06/16/19 05:00 Dohle Bodies Not Reportable 06/16/19 05:00 Pelger-Huet Anomaly Not Reportable 06/16/19 05:00 Renea Rods Not Reportable 06/16/19 05:00 Platelet Estimate Consistent w auto 06/16/19 05:00 Clumped Platelets Not Reportable 06/16/19 05:00 Plt Clumps, EDTA Not Reportable 06/16/19 05:00 Large Platelets Not Reportable 06/16/19 05:00 Giant Platelets Not Reportable 06/16/19 05:00 Platelet Satelliting Not Reportable 06/16/19 05:00 Plt Morphology Comment Not Reportable 06/16/19 05:00 RBC Morphology Not Reportable 06/16/19 05:00 Dimorphic RBCs Not Reportable 06/16/19 05:00 Polychromasia Not Reportable 06/16/19 05:00 Hypochromasia Not Reportable 06/16/19 05:00 Poikilocytosis Not Reportable 06/16/19 05:00 Anisocytosis Not Reportable 06/16/19 05:00 Microcytosis Not Reportable 06/16/19 05:00 Macrocytosis Not Reportable 06/16/19 05:00 Spherocytes Not Reportable 06/16/19 05:00 Pappenheimer Bodies Not Reportable 06/16/19 05:00 Sickle Cells Not Reportable 06/16/19 05:00 Target Cells Not Reportable 06/16/19 05:00 Tear Drop Cells Not Reportable 06/16/19 05:00 Ovalocytes Not Reportable 06/16/19 05:00 Stomatocytes Few 06/16/19 05:00 Helmet Cells Not Reportable 06/16/19 05:00 [place] Bodies Not Reportable 06/16/19 05:00 [place] Rings Not Reportable 06/16/19 05:00 [place] Cells Not Reportable 06/16/19 05:00 Bite Cells Not Reportable 06/16/19 05:00 Crenated Cell Not Reportable 06/16/19 05:00 Elliptocytes Not Reportable 06/16/19 05:00 Acanthocytes (Spur) Not Reportable 06/16/19 05:00 Rouleaux Not Reportable 06/16/19 05:00 Hemoglobin C Crystals Not Reportable 06/16/19 05:00 Schistocytes Not Reportable 06/16/19 05:00 Malaria parasites Not Reportable 06/16/19 05:00 Syed Bodies Not Reportable 06/16/19 05:00 Hem Pathologist Commnt No 06/16/19 05:00 PT 15.4 Sec. (12.2-14.9) H 05/01/19 Unknown INR 1.23 (0.87-1.13) H 05/01/19 Unknown APTT 22.7 Sec. (24.2-36.6) L 05/01/19 Unknown Fibrinogen 194 mg/dl (211-480) L 06/17/19 12:45 POC ABG pH 7.462 (7.35-7.45) H 06/05/19 03:52 ABG pH 7.452 pH Units (7.350-7.450) H 06/19/19 03:18 POC ABG pCO2 39.8 (35-45) 06/05/19 03:52 ABG pCO2 47.3 mm Hg 06/19/19 03:18 POC ABG pO2 86 (80-105) 06/05/19 03:52 ABG pO2 105.5 mm Hg (80.0-90.0) H 06/19/19 03:18 POC ABG HCO3 28.4 (22-26 mml/L) 06/05/19 03:52 ABG HCO3 32.3 mmol/L (20.0-26.0) H 06/19/19 03:18 POC ABG Total CO2 30 (23-27mmol/L) 06/05/19 03:52 POC ABG O2 Sat 97 06/05/19 03:52 ABG O2 Saturation 97.9 % (95.0-99.0) 06/19/19 03:18 ABG O2 Content 9.6 (0.0-44) 06/19/19 03:18 POC ABG Base Excess 5 ((-2) - (+3)mmol/L) 06/05/19 03:52 ABG Base Excess 7.6 mmol/L (-2.0-3.0) H 06/19/19 03:18 ABG Hemoglobin 6.9 gm/dl (14.0-18.0) L 06/19/19 03:18 ABG Carboxyhemoglobin 1.6 % (0.0-5.0) 06/19/19 03:18 ABG Methemoglobin 0.5 % (0.0-1.5) 06/19/19 03:18 Oxyhemoglobin 95.8 % (95.0-99.0) 06/19/19 03:18 FiO2 30 % 06/19/19 03:18 Sodium 150 mmol/L (137-145) H 06/19/19 04:30 Potassium 3.3 mmol/L (3.6-5.0) L 06/19/19 04:30 Chloride 105.4 mmol/L (98-107) 06/19/19 04:30 Carbon Dioxide 31 mmol/L (22-30) H 06/19/19 04:30 Anion Gap 17 mmol/L 06/19/19 04:30 BUN 56 mg/dL (9-20) H 06/19/19 04:30 Creatinine 0.8 mg/dL (0.8-1.5) 06/19/19 04:30 Estimated GFR > 60 ml/min 06/19/19 04:30 BUN/Creatinine Ratio 70 % 06/19/19 04:30 Glucose 197 mg/dL (75-100) H 06/19/19 04:30 POC Glucose 260 (70-105) H 06/19/19 12:18 Osmolality 327 Mosm/kg 05/07/19 13:45 Uric Acid 18.0 mg/dL (3.5-7.6) H 05/07/19 13:45 Calcium 9.4 mg/dL (8.4-10.2) 06/19/19 04:30 Phosphorus 3.70 mg/dL (2.5-4.5) 06/10/19 05:45 Magnesium 1.40 mg/dL (1.7-2.3) L 06/12/19 03:21 Total Bilirubin 0.50 mg/dL (0.1-1.2) 06/08/19 04:20 AST 23 units/L (5-40) 06/08/19 04:20 ALT 66 units/L (7-56) H 06/08/19 04:20 Alkaline Phosphatase 59 units/L (35-129) 06/08/19 04:20 Total Creatine Kinase 131 units/L (55-170) 05/02/19 04:41 CK-MB (CK-2) 5.2 ng/mL (0.0-4.0) H 05/02/19 04:41 CK-MB (CK-2) Rel Index 3.9 (0-4) 05/02/19 04:41 Troponin T 0.067 ng/mL (0.00-0.029) H D 05/02/19 04:41 NT-Pro-B Natriuret Pep 6831 pg/mL (0-450) H 05/01/19 Unknown Total Protein 5.5 g/dL (6.3-8.2) L 06/08/19 04:20 Albumin 2.9 g/dL (3.9-5) L 06/08/19 04:20 Albumin/Globulin Ratio 1.1 % 06/08/19 04:20 Triglycerides 210 mg/dL (2-149) H 06/19/19 04:30 Cholesterol 173 mg/dL (50-199) 05/02/19 00:06 LDL Cholesterol Direct 126 mg/dL (50-130) 05/02/19 00:06 HDL Cholesterol 18 mg/dL (40-59) L 05/02/19 00:06 Cholesterol/HDL Ratio 9.61 % 05/02/19 00:06 Procalcitonin 0.05 ng/mL (<0.15) 06/17/19 12:45 Urine Color Yellow (Yellow) 06/17/19 12:45 Urine Turbidity Slightly-cloudy (Clear) 06/17/19 12:45 Urine pH 5.0 (5.0-7.0) 06/17/19 12:45 Ur Specific [place] 1.013 (1.003-1.030) 06/17/19 12:45 Urine Protein <15 mg/dl mg/dL (Negative) 06/17/19 12:45 Urine Glucose (UA) Neg mg/dL (Negative) 06/17/19 12:45 Urine Ketones Neg mg/dL (Negative) 06/17/19 12:45 Urine Blood Sm (Negative) 06/17/19 12:45 Urine Nitrite Neg (Negative) 06/17/19 12:45 Urine Bilirubin Neg (Negative) 06/17/19 12:45 Urine Urobilinogen < 2.0 mg/dL (<2.0) 06/17/19 12:45 Ur Leukocyte Esterase Neg (Negative) 06/17/19 12:45 Urine WBC (Auto) 2.0 /HPF (0.0-6.0) 06/17/19 12:45 Urine RBC (Auto) 2.0 /HPF (0.0-6.0) 06/17/19 12:45 U Epithel Cells (Auto) < 1.0 /HPF (0-13.0) 06/17/19 12:45 Urine Bacteria (Auto) 1+ /HPF (Negative) 05/20/19 12:00 Uric Acid Crystals 3+ 05/03/19 10:55 Urine Mucus Few /HPF 06/17/19 12:45 Urine Yeast (Budding) 3+ /HPF 05/20/19 12:00 Urine Creatinine 292.8 mg/dL (0.1-20.0) H 05/07/19 22:40 Urine Sodium 11 mmol/L 05/07/19 22:40 Urine Total Protein 269 mg/dL (5-11.8) H 05/07/19 22:40 Vancomycin Trough 20.5 ug/mL (5.0-20.0) H 05/15/19 09:00 Random Vancomycin 11.5 ug/mL (0-40.0) 05/27/19 06:00 AMNA Screen Negative (Negative) 05/07/19 13:45 Hepatitis A IgM Ab Non-reactive (NonReactive) 05/07/19 13:45 Hep Bs Antigen Non-reactive (Negative) 05/07/19 13:45 Hep B Core IgM Ab Non-reactive (NonReactive) 05/07/19 13:45 Hepatitis C Antibody Non-reactive (NonReactive) 05/07/19 13:45 Influenza A (Rapid) Negative (Negative) 06/17/19 11:35 Influenza B (Rapid) Negative (Negative) 06/17/19 11:35 Active Medications - Current Medications Current Medications: Generic Name Dose Route Start Last Admin Trade Name Freq PRN Reason Stop Dose Admin Acetaminophen 650 mg 06/17/19 10:00 06/17/19 21:20 Tylenol PO 650 mg Q6H PRN Administration FOR TEMP >/=100.4 Lipase/Protease/Amylase 1 each 05/14/19 15:[address] 10,500 Unit FEEDTUBE PRN PRN For Clogged Feeding Tube Dextrose 50 gm 05/01/19 20:24 D50w (25gm) Vial IV Q30MIN PRN Hypoglycemia Protocol Famotidine 20 mg 06/17/19 10:00 06/19/19 09:57 Pepcid PO 20 mg BID VICKEY Administration Ferrous Sulfate 308 mg 06/18/19 12:00 06/19/19 09:56 Ferrous Sulfate PO 308 mg QDAY VICKEY Administration Hydrophilic Ointment 1 applic 06/16/19 17:34 Vaseline Lip Therapy TP Q2HR PRN Dry Lips Propofol 1,000 mg in 100 mls @ 7.716 mls/hr 06/16/19 21:00 06/19/19 10:23 Diprivan 10 Mg/Ml IV 15 mcg/kg/min TITR VICKEY 23.148 mls/hr Administration Protocol 5 MCG/KG/MIN Cefepime HCl 2 gm in 100 mls @ 200 mls/hr 06/17/19 14:00 06/19/19 14:10 Cefepime/Ns 2 Gm/100 Ml IV 200 mls/hr Q8HR VICKEY Administration Protocol Fentanyl Citrate 2,000 mcg in 100 mls @ 12.86 mls/hr 06/17/19 14:00 Fentanyl Drip Premix IV TITR VICKEY Protocol 1 MCG/KG/HR Dextrose 1,000 mls @ 100 mls/hr 06/18/19 11:00 06/19/19 02:57 D5w IV 42 mls/hr DIRECT VICKEY Administration Insulin Glargine 15 units 06/16/19 22:00 06/18/19 21:30 Lantus SUB-Q 15 units QHS VICKEY Administration Insulin Human Lispro 0 unit 06/01/19 14:00 06/19/19 12:42 Humalog SUB-Q 6 unit Q6HR VICKEY Administration Protocol Labetalol HCl 10 mg 06/11/19 22:48 06/19/19 10:23 Labetalol IV 10 mg Q4H PRN Administration BP >170/105; hold for HR <60 Labetalol HCl 200 mg 06/13/19 11:36 06/19/19 14:10 Labetalol PO 200 mg Q8HR VICKEY Administration Levetiracetam 750 mg 06/16/19 10:00 06/19/19 09:56 Keppra PO 750 mg BID VICKEY Administration Methylprednisolone Sodium Succinate 20 mg 06/14/19 18:00 06/19/19 09:59 Solu-Medrol IV 20 mg Q8H VICKEY Administration Minoxidil 2.5 mg 06/06/19 22:00 06/19/19 09:56 Loniten PO 2.5 mg BID VICKEY Administration Multi-Ingred Cream/Lotion/Oil/Oint 1 applic 06/16/19 18:00 Artificial Tears Ophth Oint OU Q4HR PRN Dry Eye(s) Potassium Chloride 40 meq 06/19/19 10:00 06/19/19 09:56 Potassium Chloride FEEDTUBE 40 meq QDAY VICKEY Administration Simple Syrup 15 ml 05/14/19 15:01 Simple Syrup FEEDTUBE PRN PRN Hypoglycemia Simple Syrup 30 ml 05/14/19 15:01 Simple Syrup FEEDTUBE PRN PRN Hypoglycemia Sodium Bicarbonate 325 mg 05/14/19 15:01 Sodium Bicarbonate FEEDTUBE PRN PRN For Clogged Feeding Tube Valsartan 160 mg 06/19/19 13:00 06/19/19 12:43 Diovan FEEDTUBE 160 mg BID VICKEY Administration Nutrition/Malnutrition Assess - Dietary Evaluation Nutrition/Malnutrition Findings: Nutrition Notes Start: 05/04/19 12:54 Freq: Status: Active Protocol: Document 06/16/19 12:24 CW (Rec: 06/16/19 12:34 CW [id number]) Co-Sign 06/16/19 12:24 LP Nutrition Notes Initial or Follow up Reassessment Current Diagnosis Acute Kidney Injury,Sepsis, Respiratory Failure Other Pertinent Diagnosis HD Current Diet Nepro 1.8 at 50 ml/hr Labs/Tests BUN 49 BG 264 Cr 0.7 Pertinent Medications Humalog Solumedrol Height 6 ft 4 in Weight 257.2 kg [place] Body Weight (kg) 91.81 BMI 69.0 Weight change and time frame No wt change noted Weight Status Morbidly Obese Subjective/Other Information F/U for diet advancement. Pt. 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 PO not recommended. TF restarted and is being tolerated Percent of energy/protein needs met: 100%/43% Burn Absent Trauma Absent GI Symptoms None Current % PO Negligible Minimum of two criteria No physical signs of malnutrition #1 Nutrition Diagnosis Inadequate oral intake Diagnosis Progress(for reassessment Continues documentation) Is patient on ventilator? No Is Patient Ambulatory and/or Out of Bed No REE-([facility]-confined to bed) 4342.284 Kcal/Kg value to use for calculation 8 Approximate Energy Requirements Using 2057 kcal/Kg Calculation Used for Recommendations Kcal/kg Additional Notes PRO needs: 73 - 91 g (0.8 - 1 g/kg IBW) Fluid needs: 1 ml/kcal Nutrition Intervention Change Diet Order: Continue TF Nutrition Support: Nepro 1.8 at 50 ml/hr Flush with 250ml q4h Kcal 2,160 Protein (gm) 97 Fluid (mL) 872 Goal #1 TF tolerance [ End ] Goal #2 Meet at least 75% kcal/PRO needs via TF Anticipated Discharge Needs: Unable to determine at this time Follow-Up By: 06/23/19 Additional Comments F/U TF tolerance
--- NOTE | 2019-06-19 17:14 | Progress Note ---
Assessment and Plan Labs reviewed Imp: 1. Acute respiratory failure, hypoxia 2. A/C respiratory failure, hypercapnea 3. LANDON/OHS/Morbid obesity 4. CARLA 5. Pulm HTN 6. Sepsis -> ? Pneumonia, ? Meningitis 7. Seizures 8. SIRS 9. Thrombocytopenia 10. Hypernatremia Rec: 1. Propofol/Fentanyl as needed to keep him lightly sedated 2. Consulted surgery for trach/PEG as he cannot protect his airway; trach should be permanent and ultimately left uncapped at night to treat probable LANDON 3. Control BP with PO meds; hold diuretics; agree with gentle D5W and monitor sodium; K repleted 4. Cont. TFs 5. Stop Vanco; cultures NGTD; probably will stop Cefipime tomorrow if they remain negative 6. F/u HIT; hold Lovenox for now; SCDs are in place 7. Prognosis remains guarded to poor 8. Complex decision-making No family present Subjective Date of service: 06/19/19 Principal diagnosis: HF; acute hypoxemic resp failure, SIRS, CARLA Interval history: No events. PEEP down to 8. Sedated on Propofol. Active Medications Acetaminophen (Tylenol) 650 mg PO Q6H PRN PRN Reason: FOR TEMP >/=100.4 Last Admin: 06/17/19 21:20 Dose: 650 mg Documented by: Lipase/Protease/Amylase (German Fletcher 10,500 Unit) 1 each FEEDTUBE PRN PRN PRN Reason: For Clogged Feeding Tube Dextrose (D50w (25gm) Vial) 50 gm IV Q30MIN PRN; Protocol PRN Reason: Hypoglycemia Famotidine (Pepcid) 20 mg PO BID [facility] Last Admin: 06/19/19 09:57 Dose: 20 mg Documented by: Ferrous Sulfate (Ferrous Sulfate) 308 mg PO QDAY [facility] Last Admin: 06/19/19 09:56 Dose: 308 mg Documented by: Hydrophilic Ointment (Vaseline Lip Therapy) 1 applic TP Q2HR PRN PRN Reason: Dry Lips Propofol (Diprivan 10 Mg/Ml) 1,000 mg in 100 mls @ 7.716 mls/hr IV TITR [facility]; Protocol Last Admin: 06/19/19 15:25 Dose: 20 mcg/kg/min, 30.864 mls/hr Documented by: Cefepime HCl (Cefepime/Ns 2 Gm/100 Ml) 2 gm in 100 mls @ 200 mls/hr IV Q8HR [facility]; Protocol Last Admin: 06/19/19 14:10 Dose: 200 mls/hr Documented by: Fentanyl Citrate (Fentanyl Drip Premix) 2,000 mcg in 100 mls @ 12.86 mls/hr IV TITR [facility]; Protocol Dextrose (D5w) 1,000 mls @ 100 mls/hr IV DIRECT [facility] Last Admin: 06/19/19 16:18 Dose: 100 mls/hr Documented by: Insulin Glargine (Lantus) 15 units SUB-Q QHS [facility] Last Admin: 06/18/19 21:30 Dose: 15 units Documented by: Insulin Human Lispro (Humalog) 0 unit SUB-Q Q6HR [facility]; Protocol Last Admin: 06/19/19 12:42 Dose: 6 unit Documented by: Labetalol HCl (Labetalol) 10 mg IV Q4H PRN PRN Reason: BP >170/105; hold for HR <60 Last Admin: 06/19/19 10:23 Dose: 10 mg Documented by: Labetalol HCl (Labetalol) 200 mg PO Q8HR [facility] Last Admin: 06/19/19 14:10 Dose: 200 mg Documented by: Levetiracetam (Keppra) 750 mg PO BID [facility] Last Admin: 06/19/19 09:56 Dose: 750 mg Documented by: Methylprednisolone Sodium Succinate (Solu-Medrol) 20 mg IV Q8H [facility] Last Admin: 06/19/19 09:59 Dose: 20 mg Documented by: Minoxidil (Loniten) 2.5 mg PO BID [facility] Last Admin: 06/19/19 09:56 Dose: 2.5 mg Documented by: Multi-Ingred Cream/Lotion/Oil/Oint (Artificial Tears Ophth Oint) 1 applic OU Q4HR PRN PRN Reason: Dry Eye(s) Potassium Chloride (Potassium Chloride) 40 meq FEEDTUBE QDAY [facility] Last Admin: 06/19/19 09:56 Dose: 40 meq Documented by: Simple Syrup (Simple Syrup) 15 ml FEEDTUBE PRN PRN PRN Reason: Hypoglycemia Simple Syrup (Simple Syrup) 30 ml FEEDTUBE PRN PRN PRN Reason: Hypoglycemia Sodium Bicarbonate (Sodium Bicarbonate) 325 mg FEEDTUBE PRN PRN PRN Reason: For Clogged Feeding Tube Valsartan (Diovan) 160 mg FEEDTUBE BID [facility] Last Admin: 06/19/19 12:43 Dose: 160 mg Documented by: Objective Vital Signs - 12hr 06/19/19 06/19/19 06/19/19 05:15 05:25 05:30 Temperature Pulse Rate 87 92 H 90 Pulse Rate [ From Monitor] Respiratory 17 14 Rate Blood Pressure 199/74 199/74 199/74 O2 Sat by Pulse 98 100 Oximetry 06/19/19 06/19/19 06/19/19 05:35 05:46 06:00 Temperature Pulse Rate 90 87 85 Pulse Rate [ From Monitor] Respiratory 22 18 Rate Blood Pressure 199/74 199/74 O2 Sat by Pulse 99 98 Oximetry 06/19/19 06/19/19 06/19/19 06:16 06:30 06:46 Temperature Pulse Rate 83 83 85 Pulse Rate [ From Monitor] Respiratory 15 12 17 Rate Blood Pressure 199/74 199/74 199/74 O2 Sat by Pulse 98 98 98 Oximetry 06/19/19 06/19/19 06/19/19 07:00 07:16 07:30 Temperature Pulse Rate 83 86 85 Pulse Rate [ From Monitor] Respiratory 20 15 16 Rate Blood Pressure 199/74 199/74 199/74 O2 Sat by Pulse 98 97 97 Oximetry 06/19/19 06/19/19 06/19/19 07:46 08:00 08:15 Temperature 98.4 F Pulse Rate 83 83 83 Pulse Rate [ 80 From Monitor] Respiratory 19 12 14 Rate Blood Pressure 199/74 199/74 136/72 O2 Sat by Pulse 96 97 98 Oximetry 06/19/19 06/19/19 06/19/19 08:30 08:45 09:00 Temperature Pulse Rate 86 86 78 Pulse Rate [ From Monitor] Respiratory 18 19 18 Rate Blood Pressure 136/72 170/81 159/59 O2 Sat by Pulse 98 96 99 Oximetry 06/19/19 06/19/19 06/19/19 09:15 09:30 09:46 Temperature Pulse Rate 81 80 80 Pulse Rate [ From Monitor] Respiratory 19 17 16 Rate Blood Pressure 150/50 147/47 204/83 O2 Sat by Pulse 99 98 97 Oximetry 06/19/19 06/19/19 06/19/19 10:00 10:16 10:23 Temperature Pulse Rate 86 91 H 91 H Pulse Rate [ From Monitor] Respiratory 17 22 Rate Blood Pressure 195/82 195/82 216/112 O2 Sat by Pulse 98 99 Oximetry 06/19/19 06/19/19 06/19/19 10:30 10:45 11:00 Temperature Pulse Rate 86 86 85 Pulse Rate [ From Monitor] Respiratory 14 20 19 Rate Blood Pressure 205/106 196/88 186/84 O2 Sat by Pulse 98 99 97 Oximetry 06/19/19 06/19/19 06/19/19 11:15 11:30 11:45 Temperature Pulse Rate 85 89 87 Pulse Rate [ From Monitor] Respiratory 19 13 19 Rate Blood Pressure 200/89 180/79 194/88 O2 Sat by Pulse 99 97 98 Oximetry 06/19/19 06/19/19 06/19/19 11:51 12:00 12:15 Temperature 98.8 F Pulse Rate 86 83 87 Pulse Rate [ 85 From Monitor] Respiratory 17 20 Rate Blood Pressure 194/88 208/89 198/89 O2 Sat by Pulse 100 96 96 Oximetry 06/19/19 06/19/19 06/19/19 12:30 12:43 12:45 Temperature Pulse Rate 83 83 83 Pulse Rate [ From Monitor] Respiratory 18 20 Rate Blood Pressure 206/76 206/76 188/92 O2 Sat by Pulse 96 97 Oximetry 06/19/19 06/19/19 06/19/19 13:00 13:15 13:30 Temperature Pulse Rate 84 83 84 Pulse Rate [ From Monitor] Respiratory 17 19 23 Rate Blood Pressure 188/92 137/48 136/44 O2 Sat by Pulse 96 96 95 Oximetry 06/19/19 06/19/19 06/19/19 13:45 14:00 14:10 Temperature Pulse Rate 84 89 92 H Pulse Rate [ From Monitor] Respiratory 20 20 Rate Blood Pressure 129/43 129/43 147/69 O2 Sat by Pulse 96 98 Oximetry 06/19/19 06/19/19 06/19/19 14:15 14:30 14:45 Temperature Pulse Rate 91 H 87 86 Pulse Rate [ From Monitor] Respiratory 18 21 22 Rate Blood Pressure 156/48 137/44 130/43 O2 Sat by Pulse 98 100 99 Oximetry 06/19/19 06/19/19 06/19/19 15:00 15:16 15:30 Temperature Pulse Rate 84 87 85 Pulse Rate [ From Monitor] Respiratory 20 23 19 Rate Blood Pressure 127/43 132/48 139/47 O2 Sat by Pulse 98 97 99 Oximetry 06/19/19 06/19/19 06/19/19 15:45 16:00 16:15 Temperature 98.9 F Pulse Rate 85 87 85 Pulse Rate [ 83 From Monitor] Respiratory 19 19 14 Rate Blood Pressure 144/44 141/51 149/47 O2 Sat by Pulse 99 100 98 Oximetry Constitutional: other (morbidly obese male, critically ill on vent) Eyes: non-icteric ENT: oropharynx moist Neck: other (extremely large in circumference) Effort: normal Ascultation: Bilateral: diminished breath sounds (secondary to body habitus), rhonchi Cardiovascular: regular rate and rhythm (no mrg) Gastrointestinal: normoactive bowel sounds, soft, non-tender, other (obese) Integumentary: other (L hand is wrapped) Extremities: no cyanosis, pink and warm, other (1+ generalized edema) Neurologic: normal mental status, non-focal exam Psychiatric: mood appropriate, affect normal CBC and BMP: 06/19/19 04:30 06/19/19 04:30 ABG, PT/INR, D-dimer: ABG POC ABG pH 7.462 (7.35-7.45) H 06/05/19 03:52 ABG pH 7.452 pH Units (7.350-7.450) H 06/19/19 03:18 POC ABG pCO2 39.8 (35-45) 06/05/19 03:52 ABG pCO2 47.3 mm Hg 06/19/19 03:18 POC ABG pO2 86 (80-105) 06/05/19 03:52 ABG pO2 105.5 mm Hg (80.0-90.0) H 06/19/19 03:18 POC ABG HCO3 28.4 (22-26 mml/L) 06/05/19 03:52 POC ABG Total CO2 30 (23-27mmol/L) 06/05/19 03:52 POC ABG O2 Sat 97 06/05/19 03:52 ABG O2 Saturation 97.9 % (95.0-99.0) 06/19/19 03:18 PT/INR, D-dimer PT 15.4 Sec. (12.2-14.9) H 05/01/19 Unknown INR 1.23 (0.87-1.13) H 05/01/19 Unknown Abnormal lab findings: Abnormal Labs 05/01/19 05/01/19 05/01/19 17:50 19:26 22:36 WBC RBC Hgb Hct MCV MCH MCHC RDW Plt Count Lymph % (Auto) [place] % (Auto) Eos % (Auto) Lymph # [place] # Eos # Seg Neutrophils % Seg Neuts % (Manual) Lymphocytes % (Manual) Monocytes % (Manual) Eosinophils % (Manual) Nucleated RBC % Seg Neutrophils # Seg Neutrophils # Man Lymphocytes # (Manual) Monocytes # (Manual) Eosinophils # (Manual) PT INR APTT Fibrinogen POC ABG pH 7.272 L 7.331 L ABG pH POC ABG pCO2 52.8 H POC ABG pO2 ABG pO2 ABG HCO3 ABG O2 Saturation ABG Base Excess ABG Hemoglobin Oxyhemoglobin Sodium 136 L Potassium 6.5 H* Chloride 97.2 L Carbon Dioxide BUN 60 H Creatinine Glucose 113 H POC Glucose Uric Acid Calcium Phosphorus Magnesium 2.40 H AST 139 H ALT 154 H Total Creatine Kinase CK-MB (CK-2) Troponin T NT-Pro-B Natriuret Pep Total Protein Albumin 3.8 L Triglycerides HDL Cholesterol Urine WBC (Auto) Urine Creatinine Urine Total Protein Vancomycin Trough 05/01/19 05/01/19 05/01/19 Unknown Unknown Unknown WBC 16.1 H RBC Hgb Hct MCV MCH MCHC RDW 17.2 H Plt Count Lymph % (Auto) [place] % (Auto) 9.6 H Eos % (Auto) Lymph # [place] # 1.5 H Eos # Seg Neutrophils % 73.0 H Seg Neuts % (Manual) Lymphocytes % (Manual) Monocytes % (Manual) Eosinophils % (Manual) Nucleated RBC % Seg Neutrophils # 11.7 H Seg Neutrophils # Man Lymphocytes # (Manual) Monocytes # (Manual) Eosinophils # (Manual) PT 15.4 H INR 1.23 H APTT 22.7 L Fibrinogen POC ABG pH ABG pH POC ABG pCO2 POC ABG pO2 ABG pO2 ABG HCO3 ABG O2 Saturation ABG Base Excess ABG Hemoglobin Oxyhemoglobin Sodium Potassium Chloride Carbon Dioxide BUN Creatinine Glucose POC Glucose Uric Acid Calcium Phosphorus Magnesium AST ALT Total Creatine Kinase CK-MB (CK-2) Troponin T NT-Pro-B Natriuret Pep 6831 H Total Protein Albumin Triglycerides HDL Cholesterol Urine WBC (Auto) Urine Creatinine Urine Total Protein Vancomycin Trough 05/01/19 05/02/19 05/02/19 Unknown 00:06 00:06 WBC RBC Hgb Hct MCV MCH MCHC RDW Plt Count Lymph % (Auto) [place] % (Auto) Eos % (Auto) Lymph # [place] # Eos # Seg Neutrophils % Seg Neuts % (Manual) Lymphocytes % (Manual) Monocytes % (Manual) Eosinophils % (Manual) Nucleated RBC % Seg Neutrophils # Seg Neutrophils # Man Lymphocytes # (Manual) Monocytes # (Manual) Eosinophils # (Manual) PT INR APTT Fibrinogen POC ABG pH ABG pH POC ABG pCO2 POC ABG pO2 ABG pO2 ABG HCO3 ABG O2 Saturation ABG Base Excess ABG Hemoglobin Oxyhemoglobin Sodium Potassium Chloride Carbon Dioxide BUN Creatinine Glucose POC Glucose Uric Acid Calcium Phosphorus 4.90 H Magnesium AST ALT Total Creatine Kinase 226 H CK-MB (CK-2) 5.7 H Troponin T 0.044 H NT-Pro-B Natriuret Pep Total Protein Albumin Triglycerides 182 H HDL Cholesterol 18 L Urine WBC (Auto) Urine Creatinine Urine Total Protein Vancomycin Trough 05/02/19 05/02/19 05/02/19 02:08 04:40 04:41 WBC 17.6 H RBC Hgb Hct MCV MCH 27 L MCHC RDW 17.4 H Plt Count Lymph % (Auto) 10.2 L [place] % (Auto) 11.0 H Eos % (Auto) Lymph # [place] # 1.9 H Eos # Seg Neutrophils % 78.0 H Seg Neuts % (Manual) Lymphocytes % (Manual) Monocytes % (Manual) Eosinophils % (Manual) Nucleated RBC % Seg Neutrophils # 13.8 H Seg Neutrophils # Man Lymphocytes # (Manual) Monocytes # (Manual) Eosinophils # (Manual) PT INR APTT Fibrinogen POC ABG pH ABG pH POC ABG pCO2 46.8 H POC ABG pO2 63 L ABG pO2 ABG HCO3 ABG O2 Saturation ABG Base Excess ABG Hemoglobin Oxyhemoglobin Sodium Potassium Chloride 96.3 L Carbon Dioxide BUN 63 H Creatinine 1.7 H Glucose POC Glucose Uric Acid Calcium Phosphorus Magnesium AST ALT Total Creatine Kinase CK-MB (CK-2) Troponin T NT-Pro-B Natriuret Pep Total Protein Albumin Triglycerides HDL Cholesterol Urine WBC (Auto) Urine Creatinine Urine Total Protein Vancomycin Trough 05/02/19 05/02/1919 04:41 04:41 16:05 WBC RBC Hgb Hct MCV MCH MCHC RDW Plt Count Lymph % (Auto) [place] % (Auto) Eos % (Auto) Lymph # [place] # Eos # Seg Neutrophils % Seg Neuts % (Manual) Lymphocytes % (Manual) Monocytes % (Manual) Eosinophils % (Manual) Nucleated RBC % Seg Neutrophils # Seg Neutrophils # Man Lymphocytes # (Manual) Monocytes # (Manual) Eosinophils # (Manual) PT INR APTT Fibrinogen POC ABG pH ABG pH POC ABG pCO2 POC ABG pO2 ABG pO2 66.6 L ABG HCO3 31.9 H ABG O2 Saturation 92.5 L ABG Base Excess 5.8 H ABG Hemoglobin 13.3 L Oxyhemoglobin 90.6 L Sodium Potassium Chloride 97.2 L Carbon Dioxide BUN 61 H Creatinine 1.8 H Glucose POC Glucose Uric Acid Calcium Phosphorus Magnesium AST ALT Total Creatine Kinase CK-MB (CK-2) 5.2 H Troponin T 0.067 H D NT-Pro-B Natriuret Pep Total Protein Albumin Triglycerides HDL Cholesterol Urine WBC (Auto) Urine Creatinine Urine Total Protein Vancomycin Trough 05/02/19 05/03/19 05/03/19 20:39 04:35 05:05 WBC 11.8 H RBC Hgb Hct MCV MCH 27 L MCHC 31 L RDW 17.2 H Plt Count Lymph % (Auto) [place] % (Auto) Eos % (Auto) Lymph # [place] # Eos # Seg Neutrophils % Seg Neuts % (Manual) Lymphocytes % (Manual) Monocytes % (Manual) Eosinophils % (Manual) Nucleated RBC % Seg Neutrophils # Seg Neutrophils # Man Lymphocytes # (Manual) Monocytes # (Manual) Eosinophils # (Manual) PT INR APTT Fibrinogen POC ABG pH ABG pH POC ABG pCO2 53.6 H 54.0 H POC ABG pO2 55 L 63 L ABG pO2 ABG HCO3 ABG O2 Saturation ABG Base Excess ABG Hemoglobin Oxyhemoglobin Sodium Potassium Chloride Carbon Dioxide BUN Creatinine Glucose POC Glucose Uric Acid Calcium Phosphorus Magnesium AST ALT Total Creatine Kinase CK-MB (CK-2) Troponin T NT-Pro-B Natriuret Pep Total Protein Albumin Triglycerides HDL Cholesterol Urine WBC (Auto) Urine Creatinine Urine Total Protein Vancomycin Trough 05/03/19 05/03/19 05/03/19 05:05 10:55 16:48 WBC RBC Hgb Hct MCV MCH MCHC RDW Plt Count Lymph % (Auto) [place] % (Auto) Eos % (Auto) Lymph # [place] # Eos # Seg Neutrophils % Seg Neuts % (Manual) Lymphocytes % (Manual) Monocytes % (Manual) Eosinophils % (Manual) Nucleated RBC % Seg Neutrophils # Seg Neutrophils # Man Lymphocytes # (Manual) Monocytes # (Manual) Eosinophils # (Manual) PT INR APTT Fibrinogen POC ABG pH 7.604 H ABG pH POC ABG pCO2 POC ABG pO2 58 L ABG pO2 ABG HCO3 ABG O2 Saturation ABG Base Excess ABG Hemoglobin Oxyhemoglobin Sodium Potassium Chloride Carbon Dioxide BUN 52 H Creatinine 1.9 H Glucose 103 H POC Glucose Uric Acid Calcium Phosphorus Magnesium AST ALT Total Creatine Kinase CK-MB (CK-2) Troponin T NT-Pro-B Natriuret Pep Total Protein Albumin Triglycerides HDL Cholesterol Urine WBC (Auto) 33.0 H Urine Creatinine Urine Total Protein Vancomycin Trough 05/04/19 05/04/19 05/04/19 04:49 06:50 06:50 WBC 16.0 H RBC Hgb Hct MCV MCH 27 L MCHC 31 L RDW 17.8 H Plt Count Lymph % (Auto) [place] % (Auto) Eos % (Auto) Lymph # [place] # Eos # Seg Neutrophils % Seg Neuts % (Manual) Lymphocytes % (Manual) Monocytes % (Manual) Eosinophils % (Manual) Nucleated RBC % Seg Neutrophils # Seg Neutrophils # Man Lymphocytes # (Manual) Monocytes # (Manual) Eosinophils # (Manual) PT INR APTT Fibrinogen POC ABG pH 7.273 L ABG pH POC ABG pCO2 POC ABG pO2 ABG pO2 ABG HCO3 ABG O2 Saturation ABG Base Excess ABG Hemoglobin Oxyhemoglobin Sodium 148 H Potassium 5.5 H Chloride Carbon Dioxide BUN 53 H Creatinine 3.3 H D Glucose 106 H POC Glucose Uric Acid Calcium 8.3 L Phosphorus Magnesium AST ALT Total Creatine Kinase CK-MB (CK-2) Troponin T NT-Pro-B Natriuret Pep Total Protein Albumin Triglycerides HDL Cholesterol Urine WBC (Auto) Urine Creatinine Urine Total Protein Vancomycin Trough 05/05/19 05/05/19 05/05/19 00:05 04:30 05:00 WBC RBC Hgb Hct MCV MCH MCHC RDW Plt Count Lymph % (Auto) [place] % (Auto) Eos % (Auto) Lymph # [place] # Eos # Seg Neutrophils % Seg Neuts % (Manual) Lymphocytes % (Manual) Monocytes % (Manual) Eosinophils % (Manual) Nucleated RBC % Seg Neutrophils # Seg Neutrophils # Man Lymphocytes # (Manual) Monocytes # (Manual) Eosinophils # (Manual) PT INR APTT Fibrinogen POC ABG pH 7.225 L ABG pH POC ABG pCO2 > 70 H POC ABG pO2 ABG pO2 ABG HCO3 ABG O2 Saturation ABG Base Excess ABG Hemoglobin Oxyhemoglobin Sodium 151 H Potassium 5.1 H Chloride Carbon Dioxide BUN 64 H Creatinine 3.5 H Glucose 117 H POC Glucose 141 H Uric Acid Calcium 7.5 L Phosphorus Magnesium AST 93 H ALT 65 H Total Creatine Kinase CK-MB (CK-2) Troponin T NT-Pro-B Natriuret Pep Total Protein Albumin 2.9 L Triglycerides HDL Cholesterol Urine WBC (Auto) Urine Creatinine Urine Total Protein Vancomycin Trough 05/05/19 05/05/19 05/05/19 05:00 12:02 17:46 WBC 12.0 H RBC Hgb 11.3 L Hct MCV MCH 27 L MCHC 30 L RDW 18.4 H Plt Count Lymph % (Auto) 7.9 L [place] % (Auto) 10.2 H Eos % (Auto) Lymph # 1.0 L [place] # 1.2 H Eos # Seg Neutrophils % 80.8 H Seg Neuts % (Manual) Lymphocytes % (Manual) Monocytes % (Manual) Eosinophils % (Manual) Nucleated RBC % Seg Neutrophils # 9.7 H Seg Neutrophils # Man Lymphocytes # (Manual) Monocytes # (Manual) Eosinophils # (Manual) PT INR APTT Fibrinogen POC ABG pH ABG pH POC ABG pCO2 POC ABG pO2 ABG pO2 ABG HCO3 ABG O2 Saturation ABG Base Excess ABG Hemoglobin Oxyhemoglobin Sodium Potassium Chloride Carbon Dioxide BUN Creatinine Glucose POC Glucose 125 H 112 H Uric Acid Calcium Phosphorus Magnesium AST ALT Total Creatine Kinase CK-MB (CK-2) Troponin T NT-Pro-B Natriuret Pep Total Protein Albumin Triglycerides HDL Cholesterol Urine WBC (Auto) Urine Creatinine Urine Total Protein Vancomycin Trough 05/05/19 05/06/19 05/06/19 23:42 03:58 04:45 WBC 11.4 H RBC Hgb 10.7 L Hct 34.2 L MCV MCH 27 L MCHC 31 L RDW 16.9 H Plt Count Lymph % (Auto) [place] % (Auto) Eos % (Auto) Lymph # [place] # Eos # Seg Neutrophils % Seg Neuts % (Manual) Lymphocytes % (Manual) Monocytes % (Manual) Eosinophils % (Manual) Nucleated RBC % Seg Neutrophils # Seg Neutrophils # Man Lymphocytes # (Manual) Monocytes # (Manual) Eosinophils # (Manual) PT INR APTT Fibrinogen POC ABG pH ABG pH POC ABG pCO2 62.4 H POC ABG pO2 111 H ABG pO2 ABG HCO3 ABG O2 Saturation ABG Base Excess ABG Hemoglobin Oxyhemoglobin Sodium Potassium Chloride Carbon Dioxide BUN Creatinine Glucose POC Glucose 128 H Uric Acid Calcium Phosphorus Magnesium AST ALT Total Creatine Kinase CK-MB (CK-2) Troponin T NT-Pro-B Natriuret Pep Total Protein Albumin Triglycerides HDL Cholesterol Urine WBC (Auto) Urine Creatinine Urine Total Protein Vancomycin Trough 05/06/19 05/06/19 05/06/19 04:45 05:33 12:30 WBC RBC Hgb Hct MCV MCH MCHC RDW Plt Count Lymph % (Auto) [place] % (Auto) Eos % (Auto) Lymph # [place] # Eos # Seg Neutrophils % Seg Neuts % (Manual) Lymphocytes % (Manual) Monocytes % (Manual) Eosinophils % (Manual) Nucleated RBC % Seg Neutrophils # Seg Neutrophils # Man Lymphocytes # (Manual) Monocytes # (Manual) Eosinophils # (Manual) PT INR APTT Fibrinogen POC ABG pH ABG pH POC ABG pCO2 POC ABG pO2 ABG pO2 ABG HCO3 ABG O2 Saturation ABG Base Excess ABG Hemoglobin Oxyhemoglobin Sodium 149 H Potassium Chloride Carbon Dioxide 31 H BUN 67 H Creatinine 3.2 H Glucose 125 H POC Glucose 117 H 116 H Uric Acid Calcium 7.5 L Phosphorus Magnesium AST ALT Total Creatine Kinase CK-MB (CK-2) Troponin T NT-Pro-B Natriuret Pep Total Protein Albumin Triglycerides HDL Cholesterol Urine WBC (Auto) Urine Creatinine Urine Total Protein Vancomycin Trough 05/06/19 05/06/19 05/07/19 18:34 23:16 05:22 WBC RBC Hgb Hct MCV MCH MCHC RDW Plt Count Lymph % (Auto) [place] % (Auto) Eos % (Auto) Lymph # [place] # Eos # Seg Neutrophils % Seg Neuts % (Manual) Lymphocytes % (Manual) Monocytes % (Manual) Eosinophils % (Manual) Nucleated RBC % Seg Neutrophils # Seg Neutrophils # Man Lymphocytes # (Manual) Monocytes # (Manual) Eosinophils # (Manual) PT INR APTT Fibrinogen POC ABG pH ABG pH POC ABG pCO2 POC ABG pO2 ABG pO2 ABG HCO3 ABG O2 Saturation ABG Base Excess ABG Hemoglobin Oxyhemoglobin Sodium Potassium Chloride Carbon Dioxide BUN Creatinine Glucose POC Glucose 128 H 143 H 166 H Uric Acid Calcium Phosphorus Magnesium AST ALT Total Creatine Kinase CK-MB (CK-2) Troponin T NT-Pro-B Natriuret Pep Total Protein Albumin Triglycerides HDL Cholesterol Urine WBC (Auto) Urine Creatinine Urine Total Protein Vancomycin Trough 05/07/19 05/07/19 05/07/19 06:33 07:03 09:35 WBC RBC Hgb Hct MCV MCH MCHC RDW Plt Count Lymph % (Auto) [place] % (Auto) Eos % (Auto) Lymph # [place] # Eos # Seg Neutrophils % Seg Neuts % (Manual) Lymphocytes % (Manual) Monocytes % (Manual) Eosinophils % (Manual) Nucleated RBC % Seg Neutrophils # Seg Neutrophils # Man Lymphocytes # (Manual) Monocytes # (Manual) Eosinophils # (Manual) PT INR APTT Fibrinogen POC ABG pH 7.263 L 7.288 L ABG pH POC ABG pCO2 POC ABG pO2 51 L 56 L ABG pO2 ABG HCO3 ABG O2 Saturation ABG Base Excess ABG Hemoglobin Oxyhemoglobin Sodium Potassium Chloride Carbon Dioxide BUN 76 H Creatinine 3.2 H Glucose 147 H POC Glucose Uric Acid Calcium 7.9 L Phosphorus Magnesium AST ALT Total Creatine Kinase CK-MB (CK-2) Troponin T NT-Pro-B Natriuret Pep Total Protein Albumin Triglycerides HDL Cholesterol Urine WBC (Auto) Urine Creatinine Urine Total Protein Vancomycin Trough 05/07/19 05/07/19 05/07/19 09:35 12:17 13:45 WBC 13.4 H RBC Hgb 11.6 L Hct MCV MCH 27 L MCHC 31 L RDW 17.5 H Plt Count Lymph % (Auto) [place] % (Auto) Eos % (Auto) Lymph # [place] # Eos # Seg Neutrophils % Seg Neuts % (Manual) Lymphocytes % (Manual) Monocytes % (Manual) Eosinophils % (Manual) Nucleated RBC % Seg Neutrophils # Seg Neutrophils # Man Lymphocytes # (Manual) Monocytes # (Manual) Eosinophils # (Manual) PT INR APTT Fibrinogen POC ABG pH ABG pH POC ABG pCO2 POC ABG pO2 ABG pO2 ABG HCO3 ABG O2 Saturation ABG Base Excess ABG Hemoglobin Oxyhemoglobin Sodium Potassium Chloride Carbon Dioxide BUN Creatinine Glucose POC Glucose 130 H Uric Acid 18.0 H Calcium Phosphorus Magnesium AST ALT Total Creatine Kinase CK-MB (CK-2) Troponin T NT-Pro-B Natriuret Pep Total Protein Albumin Triglycerides HDL Cholesterol Urine WBC (Auto) Urine Creatinine Urine Total Protein Vancomycin Trough 05/07/19 05/07/19 05/08/19 17:39 22:40 05:06 WBC RBC Hgb Hct MCV MCH MCHC RDW Plt Count Lymph % (Auto) [place] % (Auto) Eos % (Auto) Lymph # [place] # Eos # Seg Neutrophils % Seg Neuts % (Manual) Lymphocytes % (Manual) Monocytes % (Manual) Eosinophils % (Manual) Nucleated RBC % Seg Neutrophils # Seg Neutrophils # Man Lymphocytes # (Manual) Monocytes # (Manual) Eosinophils # (Manual) PT INR APTT Fibrinogen POC ABG pH ABG pH POC ABG pCO2 POC ABG pO2 ABG pO2 ABG HCO3 ABG O2 Saturation ABG Base Excess ABG Hemoglobin Oxyhemoglobin Sodium Potassium Chloride Carbon Dioxide BUN Creatinine Glucose POC Glucose 116 H 148 H Uric Acid Calcium Phosphorus Magnesium AST ALT Total Creatine Kinase CK-MB (CK-2) Troponin T NT-Pro-B Natriuret Pep Total Protein Albumin Triglycerides HDL Cholesterol Urine WBC (Auto) Urine Creatinine 292.8 H Urine Total Protein 269 H Vancomycin Trough 05/08/19 05/08/19 05/08/19 05:32 11:28 13:48 WBC RBC Hgb Hct MCV MCH MCHC RDW Plt Count Lymph % (Auto) [place] % (Auto) Eos % (Auto) Lymph # [place] # Eos # Seg Neutrophils % Seg Neuts % (Manual) Lymphocytes % (Manual) Monocytes % (Manual) Eosinophils % (Manual) Nucleated RBC % Seg Neutrophils # Seg Neutrophils # Man Lymphocytes # (Manual) Monocytes # (Manual) Eosinophils # (Manual) PT INR APTT Fibrinogen POC ABG pH ABG pH POC ABG pCO2 45.4 H POC ABG pO2 64 L ABG pO2 ABG HCO3 ABG O2 Saturation ABG Base Excess ABG Hemoglobin Oxyhemoglobin Sodium Potassium Chloride Carbon Dioxide BUN 73 H Creatinine 2.7 H Glucose 127 H POC Glucose 107 H Uric Acid Calcium 7.6 L Phosphorus Magnesium AST ALT Total Creatine Kinase CK-MB (CK-2) Troponin T NT-Pro-B Natriuret Pep Total Protein Albumin Triglycerides HDL Cholesterol Urine WBC (Auto) Urine Creatinine Urine Total Protein Vancomycin Trough 05/08/19 05/09/19 05/09/19 17:48 04:50 04:53 WBC RBC 3.07 L Hgb 8.5 L D Hct 29.3 L D MCV 96 H MCH MCHC 29 L RDW 18.1 H Plt Count Lymph % (Auto) [place] % (Auto) Eos % (Auto) Lymph # [place] # Eos # Seg Neutrophils % Seg Neuts % (Manual) Lymphocytes % (Manual) Monocytes % (Manual) Eosinophils % (Manual) Nucleated RBC % Seg Neutrophils # Seg Neutrophils # Man Lymphocytes # (Manual) Monocytes # (Manual) Eosinophils # (Manual) PT INR APTT Fibrinogen POC ABG pH 7.316 L ABG pH POC ABG pCO2 66.0 H POC ABG pO2 69 L ABG pO2 ABG HCO3 ABG O2 Saturation ABG Base Excess ABG Hemoglobin Oxyhemoglobin Sodium Potassium Chloride Carbon Dioxide BUN Creatinine Glucose POC Glucose 155 H Uric Acid Calcium Phosphorus Magnesium AST ALT Total Creatine Kinase CK-MB (CK-2) Troponin T NT-Pro-B Natriuret Pep Total Protein Albumin Triglycerides HDL Cholesterol Urine WBC (Auto) Urine Creatinine Urine Total Protein Vancomycin Trough 05/09/19 05/09/19 05/09/19 05:46 07:24 12:10 WBC RBC Hgb Hct MCV MCH MCHC RDW Plt Count Lymph % (Auto) [place] % (Auto) Eos % (Auto) Lymph # [place] # Eos # Seg Neutrophils % Seg Neuts % (Manual) Lymphocytes % (Manual) Monocytes % (Manual) Eosinophils % (Manual) Nucleated RBC % Seg Neutrophils # Seg Neutrophils # Man Lymphocytes # (Manual) Monocytes # (Manual) Eosinophils # (Manual) PT INR APTT Fibrinogen POC ABG pH ABG pH POC ABG pCO2 POC ABG pO2 ABG pO2 ABG HCO3 ABG O2 Saturation ABG Base Excess ABG Hemoglobin Oxyhemoglobin Sodium Potassium Chloride Carbon Dioxide BUN 73 H Creatinine 2.4 H Glucose 153 H POC Glucose 123 H 148 H Uric Acid Calcium 8.2 L Phosphorus Magnesium AST 45 H ALT Total Creatine Kinase CK-MB (CK-2) Troponin T NT-Pro-B Natriuret Pep Total Protein 6.0 L Albumin 1.9 L Triglycerides HDL Cholesterol Urine WBC (Auto) Urine Creatinine Urine Total Protein Vancomycin Trough 05/09/19 05/09/19 05/10/19 18:23 23:26 04:52 WBC RBC Hgb Hct MCV MCH MCHC RDW Plt Count Lymph % (Auto) [place] % (Auto) Eos % (Auto) Lymph # [place] # Eos # Seg Neutrophils % Seg Neuts % (Manual) Lymphocytes % (Manual) Monocytes % (Manual) Eosinophils % (Manual) Nucleated RBC % Seg Neutrophils # Seg Neutrophils # Man Lymphocytes # (Manual) Monocytes # (Manual) Eosinophils # (Manual) PT INR APTT Fibrinogen POC ABG pH 7.305 L ABG pH POC ABG pCO2 62.6 H POC ABG pO2 ABG pO2 ABG HCO3 ABG O2 Saturation ABG Base Excess ABG Hemoglobin Oxyhemoglobin Sodium Potassium Chloride Carbon Dioxide BUN Creatinine Glucose POC Glucose 147 H 121 H Uric Acid Calcium Phosphorus Magnesium AST ALT Total Creatine Kinase CK-MB (CK-2) Troponin T NT-Pro-B Natriuret Pep Total Protein Albumin Triglycerides HDL Cholesterol Urine WBC (Auto) Urine Creatinine Urine Total Protein Vancomycin Trough 05/10/19 05/10/19 05/10/19 05:00 05:00 05:50 WBC RBC Hgb 10.3 L Hct 33.7 L MCV MCH 27 L MCHC 31 L RDW 17.0 H Plt Count Lymph % (Auto) [place] % (Auto) Eos % (Auto) Lymph # [place] # Eos # Seg Neutrophils % Seg Neuts % (Manual) Lymphocytes % (Manual) Monocytes % (Manual) Eosinophils % (Manual) Nucleated RBC % Seg Neutrophils # Seg Neutrophils # Man Lymphocytes # (Manual) Monocytes # (Manual) Eosinophils # (Manual) PT INR APTT Fibrinogen POC ABG pH ABG pH POC ABG pCO2 POC ABG pO2 ABG pO2 ABG HCO3 ABG O2 Saturation ABG Base Excess ABG Hemoglobin Oxyhemoglobin Sodium 147 H Potassium Chloride Carbon Dioxide BUN 70 H Creatinine 2.6 H Glucose 155 H POC Glucose 158 H Uric Acid Calcium 8.2 L Phosphorus Magnesium AST ALT Total Creatine Kinase CK-MB (CK-2) Troponin T NT-Pro-B Natriuret Pep Total Protein 6.1 L Albumin 2.5 L Triglycerides HDL Cholesterol Urine WBC (Auto) Urine Creatinine Urine Total Protein Vancomycin Trough 05/10/19 05/11/19 05/11/19 13:14 07:26 11:40 WBC RBC Hgb Hct MCV MCH MCHC RDW Plt Count Lymph % (Auto) [place] % (Auto) Eos % (Auto) Lymph # [place] # Eos # Seg Neutrophils % Seg Neuts % (Manual) Lymphocytes % (Manual) Monocytes % (Manual) Eosinophils % (Manual) Nucleated RBC % Seg Neutrophils # Seg Neutrophils # Man Lymphocytes # (Manual) Monocytes # (Manual) Eosinophils # (Manual) PT INR APTT Fibrinogen POC ABG pH ABG pH POC ABG pCO2 48.0 H POC ABG pO2 58 L ABG pO2 ABG HCO3 ABG O2 Saturation ABG Base Excess ABG Hemoglobin Oxyhemoglobin Sodium 147 H Potassium Chloride 107.2 H Carbon Dioxide BUN 67 H Creatinine 2.6 H Glucose 121 H POC Glucose 159 H Uric Acid Calcium Phosphorus Magnesium AST ALT Total Creatine Kinase CK-MB (CK-2) Troponin T NT-Pro-B Natriuret Pep Total Protein Albumin Triglycerides HDL Cholesterol Urine WBC (Auto) Urine Creatinine Urine Total Protein Vancomycin Trough 05/11/19 05/11/19 05/12/19 18:13 23:46 04:40 WBC RBC Hgb Hct MCV MCH MCHC RDW Plt Count Lymph % (Auto) [place] % (Auto) Eos % (Auto) Lymph # [place] # Eos # Seg Neutrophils % Seg Neuts % (Manual) Lymphocytes % (Manual) Monocytes % (Manual) Eosinophils % (Manual) Nucleated RBC % Seg Neutrophils # Seg Neutrophils # Man Lymphocytes # (Manual) Monocytes # (Manual) Eosinophils # (Manual) PT INR APTT Fibrinogen POC ABG pH ABG pH 7.264 L POC ABG pCO2 POC ABG pO2 ABG pO2 66.8 L ABG HCO3 31.0 H ABG O2 Saturation 92.0 L ABG Base Excess ABG Hemoglobin 10.3 L Oxyhemoglobin 90.1 L Sodium Potassium Chloride Carbon Dioxide BUN Creatinine Glucose POC Glucose 120 H 121 H Uric Acid Calcium Phosphorus Magnesium AST ALT Total Creatine Kinase CK-MB (CK-2) Troponin T NT-Pro-B Natriuret Pep Total Protein Albumin Triglycerides HDL Cholesterol Urine WBC (Auto) Urine Creatinine Urine Total Protein Vancomycin Trough 05/12/19 05/12/19 05/12/19 04:45 04:45 11:14 WBC RBC Hgb 10.2 L Hct 32.4 L MCV MCH MCHC 31 L RDW 17.2 H Plt Count Lymph % (Auto) [place] % (Auto) Eos % (Auto) Lymph # [place] # Eos # Seg Neutrophils % Seg Neuts % (Manual) Lymphocytes % (Manual) Monocytes % (Manual) Eosinophils % (Manual) Nucleated RBC % Seg Neutrophils # Seg Neutrophils # Man Lymphocytes # (Manual) Monocytes # (Manual) Eosinophils # (Manual) PT INR APTT Fibrinogen POC ABG pH 7.284 L ABG pH POC ABG pCO2 67.8 H POC ABG pO2 ABG pO2 ABG HCO3 ABG O2 Saturation ABG Base Excess ABG Hemoglobin Oxyhemoglobin Sodium Potassium Chloride Carbon Dioxide BUN 63 H Creatinine 2.4 H Glucose 110 H POC Glucose Uric Acid Calcium Phosphorus Magnesium AST ALT Total Creatine Kinase CK-MB (CK-2) Troponin T NT-Pro-B Natriuret Pep Total Protein Albumin Triglycerides HDL Cholesterol Urine WBC (Auto) Urine Creatinine Urine Total Protein Vancomycin Trough 05/12/19 05/12/19 05/13/19 11:44 23:11 04:30 WBC RBC Hgb Hct MCV MCH MCHC RDW Plt Count Lymph % (Auto) [place] % (Auto) Eos % (Auto) Lymph # [place] # Eos # Seg Neutrophils % Seg Neuts % (Manual) Lymphocytes % (Manual) Monocytes % (Manual) Eosinophils % (Manual) Nucleated RBC % Seg Neutrophils # Seg Neutrophils # Man Lymphocytes # (Manual) Monocytes # (Manual) Eosinophils # (Manual) PT INR APTT Fibrinogen POC ABG pH ABG pH 7.288 L POC ABG pCO2 POC ABG pO2 ABG pO2 109.7 H ABG HCO3 30.9 H ABG O2 Saturation ABG Base Excess 3.2 H ABG Hemoglobin 9.6 L Oxyhemoglobin Sodium Potassium Chloride Carbon Dioxide BUN Creatinine Glucose POC Glucose 126 H 147 H Uric Acid Calcium Phosphorus Magnesium AST ALT Total Creatine Kinase CK-MB (CK-2) Troponin T NT-Pro-B Natriuret Pep Total Protein Albumin Triglycerides HDL Cholesterol Urine WBC (Auto) Urine Creatinine Urine Total Protein Vancomycin Trough 05/13/19 05/13/19 05/14/19 06:27 11:58 04:00 WBC RBC 3.16 L Hgb 9.3 L Hct 27.9 L MCV MCH MCHC RDW 17.1 H Plt Count Lymph % (Auto) [place] % (Auto) Eos % (Auto) Lymph # [place] # Eos # Seg Neutrophils % Seg Neuts % (Manual) Lymphocytes % (Manual) Monocytes % (Manual) Eosinophils % (Manual) Nucleated RBC % Seg Neutrophils # Seg Neutrophils # Man Lymphocytes # (Manual) Monocytes # (Manual) Eosinophils # (Manual) PT INR APTT Fibrinogen POC ABG pH ABG pH POC ABG pCO2 POC ABG pO2 ABG pO2 ABG HCO3 ABG O2 Saturation ABG Base Excess ABG Hemoglobin Oxyhemoglobin Sodium Potassium Chloride Carbon Dioxide BUN Creatinine Glucose POC Glucose 113 H 130 H Uric Acid Calcium Phosphorus Magnesium AST ALT Total Creatine Kinase CK-MB (CK-2) Troponin T NT-Pro-B Natriuret Pep Total Protein Albumin Triglycerides HDL Cholesterol Urine WBC (Auto) Urine Creatinine Urine Total Protein Vancomycin Trough 05/14/19 05/14/19 05/14/19 04:00 04:34 05:32 WBC RBC Hgb Hct MCV MCH MCHC RDW Plt Count Lymph % (Auto) [place] % (Auto) Eos % (Auto) Lymph # [place] # Eos # Seg Neutrophils % Seg Neuts % (Manual) Lymphocytes % (Manual) Monocytes % (Manual) Eosinophils % (Manual) Nucleated RBC % Seg Neutrophils # Seg Neutrophils # Man Lymphocytes # (Manual) Monocytes # (Manual) Eosinophils # (Manual) PT INR APTT Fibrinogen POC ABG pH 7.328 L ABG pH POC ABG pCO2 61.7 H POC ABG pO2 ABG pO2 ABG HCO3 ABG O2 Saturation ABG Base Excess ABG Hemoglobin Oxyhemoglobin Sodium 135 L D Potassium Chloride Carbon Dioxide BUN 57 H Creatinine 2.2 H Glucose 115 H POC Glucose 115 H Uric Acid Calcium 8.1 L Phosphorus Magnesium AST ALT Total Creatine Kinase CK-MB (CK-2) Troponin T NT-Pro-B Natriuret Pep Total Protein Albumin Triglycerides HDL Cholesterol Urine WBC (Auto) Urine Creatinine Urine Total Protein Vancomycin Trough 05/14/19 05/15/19 05/15/19 12:11 05:10 05:24 WBC RBC Hgb Hct MCV MCH MCHC RDW Plt Count Lymph % (Auto) [place] % (Auto) Eos % (Auto) Lymph # [place] # Eos # Seg Neutrophils % Seg Neuts % (Manual) Lymphocytes % (Manual) Monocytes % (Manual) Eosinophils % (Manual) Nucleated RBC % Seg Neutrophils # Seg Neutrophils # Man Lymphocytes # (Manual) Monocytes # (Manual) Eosinophils # (Manual) PT INR APTT Fibrinogen POC ABG pH ABG pH 7.342 L POC ABG pCO2 POC ABG pO2 ABG pO2 79.1 L ABG HCO3 28.2 H ABG O2 Saturation ABG Base Excess ABG Hemoglobin 7.0 L Oxyhemoglobin 94.4 L Sodium Potassium Chloride Carbon Dioxide BUN Creatinine Glucose POC Glucose 110 H 116 H Uric Acid Calcium Phosphorus Magnesium AST ALT Total Creatine Kinase CK-MB (CK-2) Troponin T NT-Pro-B Natriuret Pep Total Protein Albumin Triglycerides HDL Cholesterol Urine WBC (Auto) Urine Creatinine Urine Total Protein Vancomycin Trough 05/15/19 05/15/19 05/16/19 09:00 18:12 04:50 WBC RBC Hgb Hct MCV MCH MCHC RDW Plt Count Lymph % (Auto) [place] % (Auto) Eos % (Auto) Lymph # [place] # Eos # Seg Neutrophils % Seg Neuts % (Manual) Lymphocytes % (Manual) Monocytes % (Manual) Eosinophils % (Manual) Nucleated RBC % Seg Neutrophils # Seg Neutrophils # Man Lymphocytes # (Manual) Monocytes # (Manual) Eosinophils # (Manual) PT INR APTT Fibrinogen POC ABG pH ABG pH 7.250 L POC ABG pCO2 POC ABG pO2 ABG pO2 76.4 L ABG HCO3 ABG O2 Saturation 94.6 L ABG Base Excess -3.1 L ABG Hemoglobin 9.7 L Oxyhemoglobin 92.4 L Sodium Potassium Chloride Carbon Dioxide BUN Creatinine Glucose POC Glucose 110 H Uric Acid Calcium Phosphorus Magnesium AST ALT Total Creatine Kinase CK-MB (CK-2) Troponin T NT-Pro-B Natriuret Pep Total Protein Albumin Triglycerides HDL Cholesterol Urine WBC (Auto) Urine Creatinine Urine Total Protein Vancomycin Trough 20.5 H 05/16/19 05/16/19 05/17/19 05:50 05:50 04:20 WBC RBC 3.36 L 3.44 L Hgb 9.4 L 9.3 L Hct 29.1 L 29.7 L MCV MCH 27 L MCHC 31 L RDW 17.6 H 17.6 H Plt Count Lymph % (Auto) [place] % (Auto) Eos % (Auto) Lymph # [place] # Eos # Seg Neutrophils % Seg Neuts % (Manual) 77.0 H Lymphocytes % (Manual) 5.0 L Monocytes % (Manual) Eosinophils % (Manual) 10.0 H Nucleated RBC % Seg Neutrophils # Seg Neutrophils # Man Lymphocytes # (Manual) 0.5 L Monocytes # (Manual) Eosinophils # (Manual) 0.9 H PT INR APTT Fibrinogen POC ABG pH ABG pH POC ABG pCO2 POC ABG pO2 ABG pO2 ABG HCO3 ABG O2 Saturation ABG Base Excess ABG Hemoglobin Oxyhemoglobin Sodium Potassium Chloride Carbon Dioxide BUN 83 H Creatinine 4.4 H D Glucose 118 H POC Glucose Uric Acid Calcium Phosphorus Magnesium AST ALT Total Creatine Kinase CK-MB (CK-2) Troponin T NT-Pro-B Natriuret Pep Total Protein Albumin Triglycerides HDL Cholesterol Urine WBC (Auto) Urine Creatinine Urine Total Protein Vancomycin Trough 05/17/19 05/17/19 05/18/19 04:30 Unknown 01:50 WBC RBC 3.49 L Hgb 9.4 L Hct 30.0 L MCV MCH 27 L MCHC 31 L RDW 17.8 H Plt Count Lymph % (Auto) 7.9 L [place] % (Auto) 15.4 H Eos % (Auto) 6.3 H Lymph # 0.7 L [place] # 1.4 H Eos # 0.6 H Seg Neutrophils % 70.2 H Seg Neuts % (Manual) Lymphocytes % (Manual) Monocytes % (Manual) Eosinophils % (Manual) Nucleated RBC % Seg Neutrophils # Seg Neutrophils # Man Lymphocytes # (Manual) Monocytes # (Manual) Eosinophils # (Manual) PT INR APTT Fibrinogen POC ABG pH ABG pH 7.272 L POC ABG pCO2 POC ABG pO2 ABG pO2 75.7 L ABG HCO3 ABG O2 Saturation 93.8 L ABG Base Excess -3.0 L ABG Hemoglobin 7.8 L Oxyhemoglobin 91.6 L Sodium Potassium 5.2 H Chloride Carbon Dioxide BUN 96 H Creatinine 5.7 H Glucose 112 H POC Glucose Uric Acid Calcium Phosphorus Magnesium AST ALT Total Creatine Kinase CK-MB (CK-2) Troponin T NT-Pro-B Natriuret Pep Total Protein Albumin Triglycerides 173 H HDL Cholesterol Urine WBC (Auto) Urine Creatinine Urine Total Protein Vancomycin Trough 05/18/19 05/18/19 05/18/19 01:50 04:41 05:24 WBC RBC Hgb Hct MCV MCH MCHC RDW Plt Count Lymph % (Auto) [place] % (Auto) Eos % (Auto) Lymph # [place] # Eos # Seg Neutrophils % Seg Neuts % (Manual) Lymphocytes % (Manual) Monocytes % (Manual) Eosinophils % (Manual) Nucleated RBC % Seg Neutrophils # Seg Neutrophils # Man Lymphocytes # (Manual) Monocytes # (Manual) Eosinophils # (Manual) PT INR APTT Fibrinogen POC ABG pH 7.260 L ABG pH POC ABG pCO2 54.9 H POC ABG pO2 ABG pO2 ABG HCO3 ABG O2 Saturation ABG Base Excess ABG Hemoglobin Oxyhemoglobin Sodium Potassium 5.6 H Chloride Carbon Dioxide BUN 104 H Creatinine 6.6 H Glucose 107 H POC Glucose 106 H Uric Acid Calcium Phosphorus Magnesium AST ALT Total Creatine Kinase CK-MB (CK-2) Troponin T NT-Pro-B Natriuret Pep Total Protein Albumin Triglycerides HDL Cholesterol Urine WBC (Auto) Urine Creatinine Urine Total Protein Vancomycin Trough 05/18/19 05/18/19 05/19/19 11:34 23:26 04:06 WBC RBC 3.22 L Hgb 8.8 L Hct 27.3 L MCV MCH 27 L MCHC RDW 17.5 H Plt Count Lymph % (Auto) [place] % (Auto) Eos % (Auto) Lymph # [place] # Eos # Seg Neutrophils % Seg Neuts % (Manual) 74.0 H Lymphocytes % (Manual) 4.0 L Monocytes % (Manual) 11.0 H Eosinophils % (Manual) 7.0 H Nucleated RBC % 1.0 H Seg Neutrophils # Seg Neutrophils # Man Lymphocytes # (Manual) 0.3 L Monocytes # (Manual) 0.9 H Eosinophils # (Manual) 0.6 H PT INR APTT Fibrinogen POC ABG pH ABG pH POC ABG pCO2 POC ABG pO2 ABG pO2 ABG HCO3 ABG O2 Saturation ABG Base Excess ABG Hemoglobin Oxyhemoglobin Sodium Potassium Chloride Carbon Dioxide BUN Creatinine Glucose POC Glucose 152 H 112 H Uric Acid Calcium Phosphorus Magnesium AST ALT Total Creatine Kinase CK-MB (CK-2) Troponin T NT-Pro-B Natriuret Pep Total Protein Albumin Triglycerides HDL Cholesterol Urine WBC (Auto) Urine Creatinine Urine Total Protein Vancomycin Trough 05/19/19 05/19/19 05/20/19 04:06 06:00 04:00 WBC RBC 3.40 L Hgb 9.2 L Hct 28.6 L MCV MCH 27 L MCHC RDW 17.6 H Plt Count Lymph % (Auto) [place] % (Auto) Eos % (Auto) Lymph # [place] # Eos # Seg Neutrophils % Seg Neuts % (Manual) Lymphocytes % (Manual) 11.0 L Monocytes % (Manual) Eosinophils % (Manual) 14.0 H Nucleated RBC % Seg Neutrophils # Seg Neutrophils # Man Lymphocytes # (Manual) 1.1 L Monocytes # (Manual) Eosinophils # (Manual) 1.4 H PT INR APTT Fibrinogen POC ABG pH ABG pH 7.315 L POC ABG pCO2 POC ABG pO2 ABG pO2 ABG HCO3 ABG O2 Saturation ABG Base Excess ABG Hemoglobin 6.7 L Oxyhemoglobin 94.1 L Sodium Potassium 5.2 H Chloride Carbon Dioxide 21 L BUN 110 H Creatinine 7.2 H Glucose POC Glucose Uric Acid Calcium 8.3 L Phosphorus Magnesium AST ALT Total Creatine Kinase CK-MB (CK-2) Troponin T NT-Pro-B Natriuret Pep Total Protein Albumin Triglycerides HDL Cholesterol Urine WBC (Auto) Urine Creatinine Urine Total Protein Vancomycin Trough 05/20/19 05/20/19 05/20/19 04:00 05:48 12:00 WBC RBC Hgb Hct MCV MCH MCHC RDW Plt Count Lymph % (Auto) [place] % (Auto) Eos % (Auto) Lymph # [place] # Eos # Seg Neutrophils % Seg Neuts % (Manual) Lymphocytes % (Manual) Monocytes % (Manual) Eosinophils % (Manual) Nucleated RBC % Seg Neutrophils # Seg Neutrophils # Man Lymphocytes # (Manual) Monocytes # (Manual) Eosinophils # (Manual) PT INR APTT Fibrinogen POC ABG pH ABG pH 7.281 L POC ABG pCO2 POC ABG pO2 ABG pO2 78.7 L ABG HCO3 ABG O2 Saturation 94.5 L ABG Base Excess -3.0 L ABG Hemoglobin 9.9 L Oxyhemoglobin 92.5 L Sodium 136 L Potassium 5.7 H Chloride 96.3 L Carbon Dioxide BUN 125 H Creatinine 8.3 H Glucose 106 H POC Glucose Uric Acid Calcium Phosphorus Magnesium AST ALT Total Creatine Kinase CK-MB (CK-2) Troponin T NT-Pro-B Natriuret Pep Total Protein Albumin Triglycerides HDL Cholesterol Urine WBC (Auto) 26.0 H Urine Creatinine Urine Total Protein Vancomycin Trough 05/21/19 05/21/19 05/21/19 04:33 05:20 Unknown WBC RBC 3.38 L Hgb 9.1 L Hct 28.5 L MCV MCH 27 L MCHC RDW 17.4 H Plt Count Lymph % (Auto) [place] % (Auto) Eos % (Auto) Lymph # [place] # Eos # Seg Neutrophils % Seg Neuts % (Manual) 71.0 H Lymphocytes % (Manual) 1.0 L Monocytes % (Manual) 11.0 H Eosinophils % (Manual) 6.0 H Nucleated RBC % Seg Neutrophils # Seg Neutrophils # Man Lymphocytes # (Manual) 0.1 L Monocytes # (Manual) 1.0 H Eosinophils # (Manual) 0.6 H PT INR APTT Fibrinogen POC ABG pH 7.315 L ABG pH POC ABG pCO2 57.8 H POC ABG pO2 68 L ABG pO2 ABG HCO3 ABG O2 Saturation ABG Base Excess ABG Hemoglobin Oxyhemoglobin Sodium Potassium Chloride 96.3 L Carbon Dioxide BUN 102 H Creatinine 7.0 H Glucose 103 H POC Glucose Uric Acid Calcium Phosphorus Magnesium AST ALT Total Creatine Kinase CK-MB (CK-2) Troponin T NT-Pro-B Natriuret Pep Total Protein Albumin Triglycerides HDL Cholesterol Urine WBC (Auto) Urine Creatinine Urine Total Protein Vancomycin Trough 05/22/19 05/22/19 05/22/19 03:54 06:25 06:25 WBC RBC 3.22 L Hgb 8.6 L Hct 27.0 L MCV MCH 27 L MCHC RDW 17.5 H Plt Count Lymph % (Auto) [place] % (Auto) 16.2 H Eos % (Auto) 10.8 H Lymph # [place] # 1.3 H Eos # 0.9 H Seg Neutrophils % Seg Neuts % (Manual) Lymphocytes % (Manual) 10.0 L Monocytes % (Manual) 13.0 H Eosinophils % (Manual) 8.0 H Nucleated RBC % Seg Neutrophils # Seg Neutrophils # Man Lymphocytes # (Manual) 0.9 L Monocytes # (Manual) 1.1 H Eosinophils # (Manual) 0.7 H PT INR APTT Fibrinogen POC ABG pH 7.313 L ABG pH POC ABG pCO2 55.0 H POC ABG pO2 ABG pO2 ABG HCO3 ABG O2 Saturation ABG Base Excess ABG Hemoglobin Oxyhemoglobin Sodium 135 L Potassium Chloride 94.3 L Carbon Dioxide BUN 117 H Creatinine 7.8 H Glucose POC Glucose Uric Acid Calcium 8.2 L Phosphorus Magnesium AST ALT Total Creatine Kinase CK-MB (CK-2) Troponin T NT-Pro-B Natriuret Pep Total Protein Albumin Triglycerides HDL Cholesterol Urine WBC (Auto) Urine Creatinine Urine Total Protein Vancomycin Trough 05/23/19 05/24/19 05/24/19 05:21 05:00 05:00 WBC RBC 3.18 L Hgb 8.5 L Hct 26.7 L MCV MCH 27 L MCHC RDW 17.9 H Plt Count Lymph % (Auto) [place] % (Auto) Eos % (Auto) Lymph # [place] # Eos # Seg Neutrophils % Seg Neuts % (Manual) Lymphocytes % (Manual) Monocytes % (Manual) Eosinophils % (Manual) Nucleated RBC % Seg Neutrophils # Seg Neutrophils # Man Lymphocytes # (Manual) Monocytes # (Manual) Eosinophils # (Manual) PT INR APTT Fibrinogen POC ABG pH ABG pH POC ABG pCO2 49.7 H POC ABG pO2 73 L ABG pO2 ABG HCO3 ABG O2 Saturation ABG Base Excess ABG Hemoglobin Oxyhemoglobin Sodium Potassium Chloride 95.7 L Carbon Dioxide BUN 97 H Creatinine 6.5 H Glucose POC Glucose Uric Acid Calcium 8.0 L Phosphorus Magnesium AST ALT Total Creatine Kinase CK-MB (CK-2) Troponin T NT-Pro-B Natriuret Pep Total Protein Albumin Triglycerides HDL Cholesterol Urine WBC (Auto) Urine Creatinine Urine Total Protein Vancomycin Trough 05/24/19 05/25/19 05/25/19 06:17 04:22 15:45 WBC RBC 2.98 L Hgb 8.1 L Hct 24.9 L MCV MCH 27 L MCHC RDW 17.8 H Plt Count Lymph % (Auto) [place] % (Auto) Eos % (Auto) Lymph # [place] # Eos # Seg Neutrophils % Seg Neuts % (Manual) Lymphocytes % (Manual) Monocytes % (Manual) Eosinophils % (Manual) Nucleated RBC % Seg Neutrophils # Seg Neutrophils # Man Lymphocytes # (Manual) Monocytes # (Manual) Eosinophils # (Manual) PT INR APTT Fibrinogen POC ABG pH 7.330 L 7.313 L ABG pH POC ABG pCO2 52.5 H 51.1 H POC ABG pO2 77 L ABG pO2 ABG HCO3 ABG O2 Saturation ABG Base Excess ABG Hemoglobin Oxyhemoglobin Sodium Potassium Chloride Carbon Dioxide BUN Creatinine Glucose POC Glucose Uric Acid Calcium Phosphorus Magnesium AST ALT Total Creatine Kinase CK-MB (CK-2) Troponin T NT-Pro-B Natriuret Pep Total Protein Albumin Triglycerides HDL Cholesterol Urine WBC (Auto) Urine Creatinine Urine Total Protein Vancomycin Trough 05/25/19 05/26/19 05/26/19 15:45 04:13 05:00 WBC RBC 3.10 L Hgb 8.4 L Hct 26.0 L MCV MCH 27 L MCHC RDW 17.4 H Plt Count Lymph % (Auto) [place] % (Auto) Eos % (Auto) Lymph # [place] # Eos # Seg Neutrophils % Seg Neuts % (Manual) Lymphocytes % (Manual) Monocytes % (Manual) Eosinophils % (Manual) Nucleated RBC % Seg Neutrophils # Seg Neutrophils # Man Lymphocytes # (Manual) Monocytes # (Manual) Eosinophils # (Manual) PT INR APTT Fibrinogen POC ABG pH 7.295 L ABG pH POC ABG pCO2 56.5 H POC ABG pO2 63 L ABG pO2 ABG HCO3 ABG O2 Saturation ABG Base Excess ABG Hemoglobin Oxyhemoglobin Sodium 136 L Potassium Chloride 96.8 L Carbon Dioxide BUN 83 H Creatinine 5.9 H Glucose POC Glucose Uric Acid Calcium 7.6 L Phosphorus Magnesium AST ALT Total Creatine Kinase CK-MB (CK-2) Troponin T NT-Pro-B Natriuret Pep Total Protein Albumin Triglycerides HDL Cholesterol Urine WBC (Auto) Urine Creatinine Urine Total Protein Vancomycin Trough 05/26/19 05/27/19 05/28/19 05:00 04:48 04:47 WBC RBC Hgb Hct MCV MCH MCHC RDW Plt Count Lymph % (Auto) [place] % (Auto) Eos % (Auto) Lymph # [place] # Eos # Seg Neutrophils % Seg Neuts % (Manual) Lymphocytes % (Manual) Monocytes % (Manual) Eosinophils % (Manual) Nucleated RBC % Seg Neutrophils # Seg Neutrophils # Man Lymphocytes # (Manual) Monocytes # (Manual) Eosinophils # (Manual) PT INR APTT Fibrinogen POC ABG pH 7.323 L ABG pH 7.284 L POC ABG pCO2 56.2 H POC ABG pO2 ABG pO2 71.6 L ABG HCO3 ABG O2 Saturation 92.0 L ABG Base Excess ABG Hemoglobin 7.7 L Oxyhemoglobin 89.9 L Sodium 136 L Potassium Chloride 95.3 L Carbon Dioxide BUN 96 H Creatinine 6.5 H Glucose 108 H POC Glucose Uric Acid Calcium 7.6 L Phosphorus Magnesium AST ALT Total Creatine Kinase CK-MB (CK-2) Troponin T NT-Pro-B Natriuret Pep Total Protein Albumin Triglycerides HDL Cholesterol Urine WBC (Auto) Urine Creatinine Urine Total Protein Vancomycin Trough 05/28/19 05/29/19 05/29/19 12:30 12:47 23:44 WBC RBC Hgb Hct MCV MCH MCHC RDW Plt Count Lymph % (Auto) [place] % (Auto) Eos % (Auto) Lymph # [place] # Eos # Seg Neutrophils % Seg Neuts % (Manual) Lymphocytes % (Manual) Monocytes % (Manual) Eosinophils % (Manual) Nucleated RBC % Seg Neutrophils # Seg Neutrophils # Man Lymphocytes # (Manual) Monocytes # (Manual) Eosinophils # (Manual) PT INR APTT Fibrinogen POC ABG pH ABG pH POC ABG pCO2 POC ABG pO2 ABG pO2 ABG HCO3 ABG O2 Saturation ABG Base Excess ABG Hemoglobin Oxyhemoglobin Sodium 135 L Potassium Chloride 95.3 L Carbon Dioxide BUN 82 H Creatinine 6.0 H Glucose POC Glucose 136 H 159 H Uric Acid Calcium 7.5 L Phosphorus Magnesium AST ALT Total Creatine Kinase CK-MB (CK-2) Troponin T NT-Pro-B Natriuret Pep Total Protein Albumin Triglycerides HDL Cholesterol Urine WBC (Auto) Urine Creatinine Urine Total Protein Vancomycin Trough 05/30/19 05/30/19 05/30/19 04:30 05:38 12:00 WBC RBC 3.01 L Hgb 8.2 L Hct 25.3 L MCV MCH 27 L MCHC RDW 17.5 H Plt Count Lymph % (Auto) [place] % (Auto) Eos % (Auto) Lymph # [place] # Eos # Seg Neutrophils % Seg Neuts % (Manual) 80.0 H Lymphocytes % (Manual) 10.0 L Monocytes % (Manual) Eosinophils % (Manual) Nucleated RBC % Seg Neutrophils # Seg Neutrophils # Man 8.0 H Lymphocytes # (Manual) 1.0 L Monocytes # (Manual) Eosinophils # (Manual) PT INR APTT Fibrinogen POC ABG pH ABG pH POC ABG pCO2 POC ABG pO2 73 L ABG pO2 ABG HCO3 ABG O2 Saturation ABG Base Excess ABG Hemoglobin Oxyhemoglobin Sodium Potassium Chloride Carbon Dioxide BUN Creatinine Glucose POC Glucose 166 H Uric Acid Calcium Phosphorus Magnesium AST ALT Total Creatine Kinase CK-MB (CK-2) Troponin T NT-Pro-B Natriuret Pep Total Protein Albumin Triglycerides HDL Cholesterol Urine WBC (Auto) Urine Creatinine Urine Total Protein Vancomycin Trough 05/30/19 05/31/19 05/31/19 23:45 04:07 13:04 WBC 14.3 H RBC 2.88 L Hgb 7.7 L Hct 23.9 L MCV 83 L MCH 27 L MCHC RDW 17.8 H Plt Count Lymph % (Auto) [place] % (Auto) Eos % (Auto) Lymph # [place] # Eos # Seg Neutrophils % Seg Neuts % (Manual) 83.0 H Lymphocytes % (Manual) 11.0 L Monocytes % (Manual) Eosinophils % (Manual) Nucleated RBC % Seg Neutrophils # Seg Neutrophils # Man 11.9 H Lymphocytes # (Manual) Monocytes # (Manual) 0.9 H Eosinophils # (Manual) PT INR APTT Fibrinogen POC ABG pH ABG pH POC ABG pCO2 47.4 H POC ABG pO2 ABG pO2 ABG HCO3 ABG O2 Saturation ABG Base Excess ABG Hemoglobin Oxyhemoglobin Sodium Potassium Chloride Carbon Dioxide BUN Creatinine Glucose POC Glucose 209 H Uric Acid Calcium Phosphorus Magnesium AST ALT Total Creatine Kinase CK-MB (CK-2) Troponin T NT-Pro-B Natriuret Pep Total Protein Albumin Triglycerides HDL Cholesterol Urine WBC (Auto) Urine Creatinine Urine Total Protein Vancomycin Trough 05/31/19 05/31/19 06/01/19 13:04 16:42 00:15 WBC RBC Hgb Hct MCV MCH MCHC RDW Plt Count Lymph % (Auto) [place] % (Auto) Eos % (Auto) Lymph # [place] # Eos # Seg Neutrophils % Seg Neuts % (Manual) Lymphocytes % (Manual) Monocytes % (Manual) Eosinophils % (Manual) Nucleated RBC % Seg Neutrophils # Seg Neutrophils # Man Lymphocytes # (Manual) Monocytes # (Manual) Eosinophils # (Manual) PT INR APTT Fibrinogen POC ABG pH ABG pH POC ABG pCO2 POC ABG pO2 ABG pO2 ABG HCO3 ABG O2 Saturation ABG Base Excess ABG Hemoglobin Oxyhemoglobin Sodium 129 L Potassium Chloride 88.6 L Carbon Dioxide 19 L BUN 117 H Creatinine 6.7 H Glucose 205 H POC Glucose 228 H 223 H Uric Acid Calcium 7.4 L Phosphorus 7.40 H Magnesium AST 58 H ALT 149 H Total Creatine Kinase CK-MB (CK-2) Troponin T NT-Pro-B Natriuret Pep Total Protein 6.0 L Albumin 2.5 L Triglycerides HDL Cholesterol Urine WBC (Auto) Urine Creatinine Urine Total Protein Vancomycin Trough 06/01/19 06/01/19 06/01/19 04:33 05:27 12:31 WBC RBC Hgb Hct MCV MCH MCHC RDW Plt Count Lymph % (Auto) [place] % (Auto) Eos % (Auto) Lymph # [place] # Eos # Seg Neutrophils % Seg Neuts % (Manual) Lymphocytes % (Manual) Monocytes % (Manual) Eosinophils % (Manual) Nucleated RBC % Seg Neutrophils # Seg Neutrophils # Man Lymphocytes # (Manual) Monocytes # (Manual) Eosinophils # (Manual) PT INR APTT Fibrinogen POC ABG pH ABG pH POC ABG pCO2 POC ABG pO2 ABG pO2 56.9 L ABG HCO3 ABG O2 Saturation 85.9 L ABG Base Excess ABG Hemoglobin 8.1 L Oxyhemoglobin 83.6 L Sodium Potassium Chloride Carbon Dioxide BUN Creatinine Glucose POC Glucose 183 H 217 H Uric Acid Calcium Phosphorus Magnesium AST ALT Total Creatine Kinase CK-MB (CK-2) Troponin T NT-Pro-B Natriuret Pep Total Protein Albumin Triglycerides HDL Cholesterol Urine WBC (Auto) Urine Creatinine Urine Total Protein Vancomycin Trough 06/01/19 06/02/19 06/02/19 18:20 00:00 05:33 WBC RBC Hgb Hct MCV MCH MCHC RDW Plt Count Lymph % (Auto) [place] % (Auto) Eos % (Auto) Lymph # [place] # Eos # Seg Neutrophils % Seg Neuts % (Manual) Lymphocytes % (Manual) Monocytes % (Manual) Eosinophils % (Manual) Nucleated RBC % Seg Neutrophils # Seg Neutrophils # Man Lymphocytes # (Manual) Monocytes # (Manual) Eosinophils # (Manual) PT INR APTT Fibrinogen POC ABG pH ABG pH POC ABG pCO2 POC ABG pO2 ABG pO2 ABG HCO3 ABG O2 Saturation ABG Base Excess ABG Hemoglobin Oxyhemoglobin Sodium Potassium Chloride Carbon Dioxide BUN Creatinine Glucose POC Glucose 265 H 279 H 259 H Uric Acid Calcium Phosphorus Magnesium AST ALT Total Creatine Kinase CK-MB (CK-2) Troponin T NT-Pro-B Natriuret Pep Total Protein Albumin Triglycerides HDL Cholesterol Urine WBC (Auto) Urine Creatinine Urine Total Protein Vancomycin Trough 06/02/19 06/02/19 06/02/19 11:06 11:06 11:42 WBC 13.1 H RBC 2.92 L Hgb 7.9 L Hct 24.4 L MCV MCH 27 L MCHC RDW 17.4 H Plt Count Lymph % (Auto) [place] % (Auto) Eos % (Auto) Lymph # [place] # Eos # Seg Neutrophils % Seg Neuts % (Manual) 78.0 H Lymphocytes % (Manual) 12.0 L Monocytes % (Manual) 10.0 H Eosinophils % (Manual) Nucleated RBC % Seg Neutrophils # Seg Neutrophils # Man 10.2 H Lymphocytes # (Manual) Monocytes # (Manual) 1.3 H Eosinophils # (Manual) PT INR APTT Fibrinogen POC ABG pH ABG pH POC ABG pCO2 POC ABG pO2 ABG pO2 ABG HCO3 ABG O2 Saturation ABG Base Excess ABG Hemoglobin Oxyhemoglobin Sodium 135 L Potassium Chloride 94.7 L Carbon Dioxide 21 L BUN 107 H Creatinine 4.5 H Glucose 286 H POC Glucose 263 H Uric Acid Calcium 7.9 L Phosphorus 6.30 H Magnesium AST ALT 104 H Total Creatine Kinase CK-MB (CK-2) Troponin T NT-Pro-B Natriuret Pep Total Protein 6.0 L Albumin 2.7 L Triglycerides HDL Cholesterol Urine WBC (Auto) Urine Creatinine Urine Total Protein Vancomycin Trough 06/02/19 06/02/19 06/03/19 18:17 23:55 05:30 WBC RBC Hgb Hct MCV MCH MCHC RDW Plt Count Lymph % (Auto) [place] % (Auto) Eos % (Auto) Lymph # [place] # Eos # Seg Neutrophils % Seg Neuts % (Manual) Lymphocytes % (Manual) Monocytes % (Manual) Eosinophils % (Manual) Nucleated RBC % Seg Neutrophils # Seg Neutrophils # Man Lymphocytes # (Manual) Monocytes # (Manual) Eosinophils # (Manual) PT INR APTT Fibrinogen POC ABG pH ABG pH POC ABG pCO2 POC ABG pO2 ABG pO2 ABG HCO3 ABG O2 Saturation ABG Base Excess ABG Hemoglobin Oxyhemoglobin Sodium Potassium Chloride 95.1 L Carbon Dioxide 21 L BUN 119 H Creatinine 4.1 H Glucose 330 H POC Glucose 276 H 244 H Uric Acid Calcium 8.1 L Phosphorus Magnesium AST ALT 98 H Total Creatine Kinase CK-MB (CK-2) Troponin T NT-Pro-B Natriuret Pep Total Protein 5.8 L Albumin 2.8 L Triglycerides HDL Cholesterol Urine WBC (Auto) Urine Creatinine Urine Total Protein Vancomycin Trough 06/03/19 06/03/19 06/03/19 05:30 06:04 09:42 WBC 12.8 H RBC 3.01 L Hgb 8.2 L Hct 25.4 L MCV MCH 27 L MCHC RDW 17.5 H Plt Count Lymph % (Auto) [place] % (Auto) Eos % (Auto) Lymph # [place] # Eos # Seg Neutrophils % Seg Neuts % (Manual) 78.0 H Lymphocytes % (Manual) 10.0 L Monocytes % (Manual) 12.0 H Eosinophils % (Manual) Nucleated RBC % Seg Neutrophils # Seg Neutrophils # Man 10.0 H Lymphocytes # (Manual) Monocytes # (Manual) 1.5 H Eosinophils # (Manual) PT INR APTT Fibrinogen POC ABG pH ABG pH POC ABG pCO2 POC ABG pO2 ABG pO2 ABG HCO3 ABG O2 Saturation ABG Base Excess ABG Hemoglobin Oxyhemoglobin Sodium Potassium Chloride Carbon Dioxide BUN 106 H Creatinine Glucose POC Glucose 254 H Uric Acid Calcium Phosphorus Magnesium AST ALT Total Creatine Kinase CK-MB (CK-2) Troponin T NT-Pro-B Natriuret Pep Total Protein Albumin Triglycerides HDL Cholesterol Urine WBC (Auto) Urine Creatinine Urine Total Protein Vancomycin Trough 06/03/19 06/03/19 06/03/19 12:52 17:25 23:37 WBC RBC Hgb Hct MCV MCH MCHC RDW Plt Count Lymph % (Auto) [place] % (Auto) Eos % (Auto) Lymph # [place] # Eos # Seg Neutrophils % Seg Neuts % (Manual) Lymphocytes % (Manual) Monocytes % (Manual) Eosinophils % (Manual) Nucleated RBC % Seg Neutrophils # Seg Neutrophils # Man Lymphocytes # (Manual) Monocytes # (Manual) Eosinophils # (Manual) PT INR APTT Fibrinogen POC ABG pH ABG pH POC ABG pCO2 POC ABG pO2 ABG pO2 ABG HCO3 ABG O2 Saturation ABG Base Excess ABG Hemoglobin Oxyhemoglobin Sodium Potassium Chloride Carbon Dioxide BUN Creatinine Glucose POC Glucose 274 H 285 H 310 H Uric Acid Calcium Phosphorus Magnesium AST ALT Total Creatine Kinase CK-MB (CK-2) Troponin T NT-Pro-B Natriuret Pep Total Protein Albumin Triglycerides HDL Cholesterol Urine WBC (Auto) Urine Creatinine Urine Total Protein Vancomycin Trough 06/04/19 06/04/19 06/04/19 04:57 05:03 11:50 WBC RBC Hgb Hct MCV MCH MCHC RDW Plt Count Lymph % (Auto) [place] % (Auto) Eos % (Auto) Lymph # [place] # Eos # Seg Neutrophils % Seg Neuts % (Manual) Lymphocytes % (Manual) Monocytes % (Manual) Eosinophils % (Manual) Nucleated RBC % Seg Neutrophils # Seg Neutrophils # Man Lymphocytes # (Manual) Monocytes # (Manual) Eosinophils # (Manual) PT INR APTT Fibrinogen POC ABG pH 7.488 H ABG pH POC ABG pCO2 POC ABG pO2 ABG pO2 ABG HCO3 ABG O2 Saturation ABG Base Excess ABG Hemoglobin Oxyhemoglobin Sodium Potassium Chloride Carbon Dioxide BUN Creatinine Glucose POC Glucose 275 H 279 H Uric Acid Calcium Phosphorus Magnesium AST ALT Total Creatine Kinase CK-MB (CK-2) Troponin T NT-Pro-B Natriuret Pep Total Protein Albumin Triglycerides HDL Cholesterol Urine WBC (Auto) Urine Creatinine Urine Total Protein Vancomycin Trough 06/04/19 06/04/19 06/04/19 18:32 22:03 23:55 WBC RBC Hgb Hct MCV MCH MCHC RDW Plt Count Lymph % (Auto) [place] % (Auto) Eos % (Auto) Lymph # [place] # Eos # Seg Neutrophils % Seg Neuts % (Manual) Lymphocytes % (Manual) Monocytes % (Manual) Eosinophils % (Manual) Nucleated RBC % Seg Neutrophils # Seg Neutrophils # Man Lymphocytes # (Manual) Monocytes # (Manual) Eosinophils # (Manual) PT INR APTT Fibrinogen POC ABG pH ABG pH POC ABG pCO2 POC ABG pO2 ABG pO2 ABG HCO3 ABG O2 Saturation ABG Base Excess ABG Hemoglobin Oxyhemoglobin Sodium Potassium Chloride Carbon Dioxide BUN Creatinine Glucose POC Glucose 267 H 307 H 292 H Uric Acid Calcium Phosphorus Magnesium AST ALT Total Creatine Kinase CK-MB (CK-2) Troponin T NT-Pro-B Natriuret Pep Total Protein Albumin Triglycerides HDL Cholesterol Urine WBC (Auto) Urine Creatinine Urine Total Protein Vancomycin Trough 06/05/19 06/05/19 06/05/19 03:52 06:41 12:29 WBC RBC Hgb Hct MCV MCH MCHC RDW Plt Count Lymph % (Auto) [place] % (Auto) Eos % (Auto) Lymph # [place] # Eos # Seg Neutrophils % Seg Neuts % (Manual) Lymphocytes % (Manual) Monocytes % (Manual) Eosinophils % (Manual) Nucleated RBC % Seg Neutrophils # Seg Neutrophils # Man Lymphocytes # (Manual) Monocytes # (Manual) Eosinophils # (Manual) PT INR APTT Fibrinogen POC ABG pH 7.462 H ABG pH POC ABG pCO2 POC ABG pO2 ABG pO2 ABG HCO3 ABG O2 Saturation ABG Base Excess ABG Hemoglobin Oxyhemoglobin Sodium Potassium Chloride Carbon Dioxide BUN Creatinine Glucose POC Glucose 369 H 265 H Uric Acid Calcium Phosphorus Magnesium AST ALT Total Creatine Kinase CK-MB (CK-2) Troponin T NT-Pro-B Natriuret Pep Total Protein Albumin Triglycerides HDL Cholesterol Urine WBC (Auto) Urine Creatinine Urine Total Protein Vancomycin Trough 06/05/19 06/05/19 06/05/19 18:20 21:42 23:21 WBC RBC Hgb Hct MCV MCH MCHC RDW Plt Count Lymph % (Auto) [place] % (Auto) Eos % (Auto) Lymph # [place] # Eos # Seg Neutrophils % Seg Neuts % (Manual) Lymphocytes % (Manual) Monocytes % (Manual) Eosinophils % (Manual) Nucleated RBC % Seg Neutrophils # Seg Neutrophils # Man Lymphocytes # (Manual) Monocytes # (Manual) Eosinophils # (Manual) PT INR APTT Fibrinogen POC ABG pH ABG pH POC ABG pCO2 POC ABG pO2 ABG pO2 ABG HCO3 ABG O2 Saturation ABG Base Excess ABG Hemoglobin Oxyhemoglobin Sodium Potassium Chloride Carbon Dioxide BUN Creatinine Glucose POC Glucose 249 H 246 H 274 H Uric Acid Calcium Phosphorus Magnesium AST ALT Total Creatine Kinase CK-MB (CK-2) Troponin T NT-Pro-B Natriuret Pep Total Protein Albumin Triglycerides HDL Cholesterol Urine WBC (Auto) Urine Creatinine Urine Total Protein Vancomycin Trough 06/06/19 06/06/19 06/06/19 04:00 05:49 11:34 WBC 18.1 H RBC 3.53 L Hgb 9.5 L Hct 30.3 L MCV MCH 27 L MCHC 31 L RDW 19.5 H Plt Count Lymph % (Auto) [place] % (Auto) Eos % (Auto) Lymph # [place] # Eos # Seg Neutrophils % Seg Neuts % (Manual) 87.0 H Lymphocytes % (Manual) 3.0 L Monocytes % (Manual) 8.0 H Eosinophils % (Manual) Nucleated RBC % Seg Neutrophils # Seg Neutrophils # Man 15.7 H Lymphocytes # (Manual) 0.5 L Monocytes # (Manual) 1.4 H Eosinophils # (Manual) PT INR APTT Fibrinogen POC ABG pH ABG pH 7.472 H POC ABG pCO2 POC ABG pO2 ABG pO2 76.4 L ABG HCO3 28.1 H ABG O2 Saturation ABG Base Excess 4.3 H ABG Hemoglobin 12.5 L Oxyhemoglobin 93.8 L Sodium Potassium Chloride Carbon Dioxide BUN Creatinine Glucose POC Glucose 340 H Uric Acid Calcium Phosphorus Magnesium AST ALT Total Creatine Kinase CK-MB (CK-2) Troponin T NT-Pro-B Natriuret Pep Total Protein Albumin Triglycerides HDL Cholesterol Urine WBC (Auto) Urine Creatinine Urine Total Protein Vancomycin Trough 06/06/19 06/06/19 06/06/19 11:34 12:11 18:10 WBC RBC Hgb Hct MCV MCH MCHC RDW Plt Count Lymph % (Auto) [place] % (Auto) Eos % (Auto) Lymph # [place] # Eos # Seg Neutrophils % Seg Neuts % (Manual) Lymphocytes % (Manual) Monocytes % (Manual) Eosinophils % (Manual) Nucleated RBC % Seg Neutrophils # Seg Neutrophils # Man Lymphocytes # (Manual) Monocytes # (Manual) Eosinophils # (Manual) PT INR APTT Fibrinogen POC ABG pH ABG pH POC ABG pCO2 POC ABG pO2 ABG pO2 ABG HCO3 ABG O2 Saturation ABG Base Excess ABG Hemoglobin Oxyhemoglobin Sodium Potassium Chloride Carbon Dioxide BUN 70 H Creatinine Glucose 310 H POC Glucose 283 H 301 H Uric Acid Calcium 8.3 L Phosphorus 4.60 H Magnesium AST ALT 75 H Total Creatine Kinase CK-MB (CK-2) Troponin T NT-Pro-B Natriuret Pep Total Protein 5.6 L Albumin 2.9 L Triglycerides HDL Cholesterol Urine WBC (Auto) Urine Creatinine Urine Total Protein Vancomycin Trough 06/06/19 06/06/19 06/07/19 22:21 23:16 04:30 WBC RBC Hgb Hct MCV MCH MCHC RDW Plt Count Lymph % (Auto) [place] % (Auto) Eos % (Auto) Lymph # [place] # Eos # Seg Neutrophils % Seg Neuts % (Manual) Lymphocytes % (Manual) Monocytes % (Manual) Eosinophils % (Manual) Nucleated RBC % Seg Neutrophils # Seg Neutrophils # Man Lymphocytes # (Manual) Monocytes # (Manual) Eosinophils # (Manual) PT INR APTT Fibrinogen POC ABG pH ABG pH 7.480 H POC ABG pCO2 POC ABG pO2 ABG pO2 77.0 L ABG HCO3 27.2 H ABG O2 Saturation ABG Base Excess 3.5 H ABG Hemoglobin 7.1 L Oxyhemoglobin 94.2 L Sodium Potassium Chloride Carbon Dioxide BUN Creatinine Glucose POC Glucose 289 H 343 H Uric Acid Calcium Phosphorus Magnesium AST ALT Total Creatine Kinase CK-MB (CK-2) Troponin T NT-Pro-B Natriuret Pep Total Protein Albumin Triglycerides HDL Cholesterol Urine WBC (Auto) Urine Creatinine Urine Total Protein Vancomycin Trough 06/07/19 06/07/19 06/07/19 05:15 12:52 18:41 WBC RBC Hgb Hct MCV MCH MCHC RDW Plt Count Lymph % (Auto) [place] % (Auto) Eos % (Auto) Lymph # [place] # Eos # Seg Neutrophils % Seg Neuts % (Manual) Lymphocytes % (Manual) Monocytes % (Manual) Eosinophils % (Manual) Nucleated RBC % Seg Neutrophils # Seg Neutrophils # Man Lymphocytes # (Manual) Monocytes # (Manual) Eosinophils # (Manual) PT INR APTT Fibrinogen POC ABG pH ABG pH POC ABG pCO2 POC ABG pO2 ABG pO2 ABG HCO3 ABG O2 Saturation ABG Base Excess ABG Hemoglobin Oxyhemoglobin Sodium Potassium Chloride Carbon Dioxide BUN Creatinine Glucose POC Glucose 307 H 226 H 187 H Uric Acid Calcium Phosphorus Magnesium AST ALT Total Creatine Kinase CK-MB (CK-2) Troponin T NT-Pro-B Natriuret Pep Total Protein Albumin Triglycerides HDL Cholesterol Urine WBC (Auto) Urine Creatinine Urine Total Protein Vancomycin Trough 06/07/19 06/07/19 06/08/19 22:54 23:46 04:20 WBC 16.0 H RBC Hgb 10.0 L Hct 32.1 L MCV MCH 27 L MCHC 31 L RDW 19.4 H Plt Count Lymph % (Auto) [place] % (Auto) Eos % (Auto) Lymph # [place] # Eos # Seg Neutrophils % Seg Neuts % (Manual) 87.0 H Lymphocytes % (Manual) 7.0 L Monocytes % (Manual) Eosinophils % (Manual) Nucleated RBC % Seg Neutrophils # Seg Neutrophils # Man 13.9 H Lymphocytes # (Manual) 1.1 L Monocytes # (Manual) 1.0 H Eosinophils # (Manual) PT INR APTT Fibrinogen POC ABG pH ABG pH POC ABG pCO2 POC ABG pO2 ABG pO2 ABG HCO3 ABG O2 Saturation ABG Base Excess ABG Hemoglobin Oxyhemoglobin Sodium Potassium Chloride Carbon Dioxide BUN Creatinine Glucose POC Glucose 199 H 172 H Uric Acid Calcium Phosphorus Magnesium AST ALT Total Creatine Kinase CK-MB (CK-2) Troponin T NT-Pro-B Natriuret Pep Total Protein Albumin Triglycerides HDL Cholesterol Urine WBC (Auto) Urine Creatinine Urine Total Protein Vancomycin Trough 06/08/19 06/08/19 06/08/19 04:20 05:15 11:31 WBC RBC Hgb Hct MCV MCH MCHC RDW Plt Count Lymph % (Auto) [place] % (Auto) Eos % (Auto) Lymph # [place] # Eos # Seg Neutrophils % Seg Neuts % (Manual) Lymphocytes % (Manual) Monocytes % (Manual) Eosinophils % (Manual) Nucleated RBC % Seg Neutrophils # Seg Neutrophils # Man Lymphocytes # (Manual) Monocytes # (Manual) Eosinophils # (Manual) PT INR APTT Fibrinogen POC ABG pH ABG pH POC ABG pCO2 POC ABG pO2 ABG pO2 ABG HCO3 ABG O2 Saturation ABG Base Excess ABG Hemoglobin Oxyhemoglobin Sodium 146 H D Potassium Chloride Carbon Dioxide BUN 77 H Creatinine Glucose 205 H POC Glucose 209 H 181 H Uric Acid Calcium Phosphorus Magnesium AST ALT 66 H Total Creatine Kinase CK-MB (CK-2) Troponin T NT-Pro-B Natriuret Pep Total Protein 5.5 L Albumin 2.9 L Triglycerides HDL Cholesterol Urine WBC (Auto) Urine Creatinine Urine Total Protein Vancomycin Trough 06/08/19 06/08/19 06/09/19 17:28 23:24 05:20 WBC RBC Hgb Hct MCV MCH MCHC RDW Plt Count Lymph % (Auto) [place] % (Auto) Eos % (Auto) Lymph # [place] # Eos # Seg Neutrophils % Seg Neuts % (Manual) Lymphocytes % (Manual) Monocytes % (Manual) Eosinophils % (Manual) Nucleated RBC % Seg Neutrophils # Seg Neutrophils # Man Lymphocytes # (Manual) Monocytes # (Manual) Eosinophils # (Manual) PT INR APTT Fibrinogen POC ABG pH ABG pH POC ABG pCO2 POC ABG pO2 ABG pO2 ABG HCO3 ABG O2 Saturation ABG Base Excess ABG Hemoglobin Oxyhemoglobin Sodium Potassium Chloride Carbon Dioxide BUN Creatinine Glucose POC Glucose 215 H 200 H 173 H Uric Acid Calcium Phosphorus Magnesium AST ALT Total Creatine Kinase CK-MB (CK-2) Troponin T NT-Pro-B Natriuret Pep Total Protein Albumin Triglycerides HDL Cholesterol Urine WBC (Auto) Urine Creatinine Urine Total Protein Vancomycin Trough 06/09/19 06/09/19 06/09/19 12:07 18:32 23:51 WBC RBC Hgb Hct MCV MCH MCHC RDW Plt Count Lymph % (Auto) [place] % (Auto) Eos % (Auto) Lymph # [place] # Eos # Seg Neutrophils % Seg Neuts % (Manual) Lymphocytes % (Manual) Monocytes % (Manual) Eosinophils % (Manual) Nucleated RBC % Seg Neutrophils # Seg Neutrophils # Man Lymphocytes # (Manual) Monocytes # (Manual) Eosinophils # (Manual) PT INR APTT Fibrinogen POC ABG pH ABG pH POC ABG pCO2 POC ABG pO2 ABG pO2 ABG HCO3 ABG O2 Saturation ABG Base Excess ABG Hemoglobin Oxyhemoglobin Sodium Potassium Chloride Carbon Dioxide BUN Creatinine Glucose POC Glucose 117 H 169 H 147 H Uric Acid Calcium Phosphorus Magnesium AST ALT Total Creatine Kinase CK-MB (CK-2) Troponin T NT-Pro-B Natriuret Pep Total Protein Albumin Triglycerides HDL Cholesterol Urine WBC (Auto) Urine Creatinine Urine Total Protein Vancomycin Trough 06/10/19 06/10/19 06/10/19 05:45 05:45 06:01 WBC 14.6 H RBC Hgb 9.9 L Hct 32.2 L MCV MCH 27 L MCHC 31 L RDW 19.6 H Plt Count Lymph % (Auto) 10.5 L [place] % (Auto) 9.4 H Eos % (Auto) Lymph # [place] # 1.4 H Eos # Seg Neutrophils % 79.9 H Seg Neuts % (Manual) Lymphocytes % (Manual) Monocytes % (Manual) Eosinophils % (Manual) Nucleated RBC % Seg Neutrophils # 11.7 H Seg Neutrophils # Man Lymphocytes # (Manual) Monocytes # (Manual) Eosinophils # (Manual) PT INR APTT Fibrinogen POC ABG pH ABG pH POC ABG pCO2 POC ABG pO2 ABG pO2 ABG HCO3 ABG O2 Saturation ABG Base Excess ABG Hemoglobin Oxyhemoglobin Sodium 150 H Potassium Chloride 108.3 H Carbon Dioxide BUN 49 H Creatinine Glucose 172 H POC Glucose 165 H Uric Acid Calcium Phosphorus Magnesium 1.40 L AST ALT Total Creatine Kinase CK-MB (CK-2) Troponin T NT-Pro-B Natriuret Pep Total Protein Albumin Triglycerides HDL Cholesterol Urine WBC (Auto) Urine Creatinine Urine Total Protein Vancomycin Trough 06/10/19 06/10/19 06/11/19 12:11 18:30 00:02 WBC RBC Hgb Hct MCV MCH MCHC RDW Plt Count Lymph % (Auto) [place] % (Auto) Eos % (Auto) Lymph # [place] # Eos # Seg Neutrophils % Seg Neuts % (Manual) Lymphocytes % (Manual) Monocytes % (Manual) Eosinophils % (Manual) Nucleated RBC % Seg Neutrophils # Seg Neutrophils # Man Lymphocytes # (Manual) Monocytes # (Manual) Eosinophils # (Manual) PT INR APTT Fibrinogen POC ABG pH ABG pH POC ABG pCO2 POC ABG pO2 ABG pO2 ABG HCO3 ABG O2 Saturation ABG Base Excess ABG Hemoglobin Oxyhemoglobin Sodium Potassium Chloride Carbon Dioxide BUN Creatinine Glucose POC Glucose 150 H 154 H 130 H Uric Acid Calcium Phosphorus Magnesium AST ALT Total Creatine Kinase CK-MB (CK-2) Troponin T NT-Pro-B Natriuret Pep Total Protein Albumin Triglycerides HDL Cholesterol Urine WBC (Auto) Urine Creatinine Urine Total Protein Vancomycin Trough 06/11/19 06/11/19 06/11/19 05:33 08:34 12:33 WBC RBC Hgb Hct MCV MCH MCHC RDW Plt Count Lymph % (Auto) [place] % (Auto) Eos % (Auto) Lymph # [place] # Eos # Seg Neutrophils % Seg Neuts % (Manual) Lymphocytes % (Manual) Monocytes % (Manual) Eosinophils % (Manual) Nucleated RBC % Seg Neutrophils # Seg Neutrophils # Man Lymphocytes # (Manual) Monocytes # (Manual) Eosinophils # (Manual) PT INR APTT Fibrinogen POC ABG pH ABG pH POC ABG pCO2 POC ABG pO2 ABG pO2 ABG HCO3 ABG O2 Saturation ABG Base Excess ABG Hemoglobin Oxyhemoglobin Sodium 154 H Potassium Chloride 111.6 H Carbon Dioxide BUN 41 H Creatinine Glucose 147 H POC Glucose 183 H 185 H Uric Acid Calcium Phosphorus Magnesium AST ALT Total Creatine Kinase CK-MB (CK-2) Troponin T NT-Pro-B Natriuret Pep Total Protein Albumin Triglycerides HDL Cholesterol Urine WBC (Auto) Urine Creatinine Urine Total Protein Vancomycin Trough 06/11/19 06/11/19 06/12/19 18:22 23:46 03:21 WBC 11.9 H RBC 3.61 L Hgb 9.9 L Hct 31.7 L MCV MCH 27 L MCHC 31 L RDW 19.3 H Plt Count Lymph % (Auto) 10.6 L [place] % (Auto) 8.6 H Eos % (Auto) Lymph # [place] # 1.0 H Eos # Seg Neutrophils % 80.6 H Seg Neuts % (Manual) Lymphocytes % (Manual) Monocytes % (Manual) Eosinophils % (Manual) Nucleated RBC % Seg Neutrophils # 9.6 H Seg Neutrophils # Man Lymphocytes # (Manual) Monocytes # (Manual) Eosinophils # (Manual) PT INR APTT Fibrinogen POC ABG pH ABG pH POC ABG pCO2 POC ABG pO2 ABG pO2 ABG HCO3 ABG O2 Saturation ABG Base Excess ABG Hemoglobin Oxyhemoglobin Sodium Potassium Chloride Carbon Dioxide BUN Creatinine Glucose POC Glucose 158 H 182 H Uric Acid Calcium Phosphorus Magnesium AST ALT Total Creatine Kinase CK-MB (CK-2) Troponin T NT-Pro-B Natriuret Pep Total Protein Albumin Triglycerides HDL Cholesterol Urine WBC (Auto) Urine Creatinine Urine Total Protein Vancomycin Trough 06/12/19 06/12/19 06/12/19 03:21 06:04 11:28 WBC RBC Hgb Hct MCV MCH MCHC RDW Plt Count Lymph % (Auto) [place] % (Auto) Eos % (Auto) Lymph # [place] # Eos # Seg Neutrophils % Seg Neuts % (Manual) Lymphocytes % (Manual) Monocytes % (Manual) Eosinophils % (Manual) Nucleated RBC % Seg Neutrophils # Seg Neutrophils # Man Lymphocytes # (Manual) Monocytes # (Manual) Eosinophils # (Manual) PT INR APTT Fibrinogen POC ABG pH ABG pH POC ABG pCO2 POC ABG pO2 ABG pO2 ABG HCO3 ABG O2 Saturation ABG Base Excess ABG Hemoglobin Oxyhemoglobin Sodium 148 H Potassium Chloride 107.3 H Carbon Dioxide BUN 34 H Creatinine 0.7 L Glucose 194 H POC Glucose 133 H 167 H Uric Acid Calcium Phosphorus Magnesium 1.40 L AST ALT Total Creatine Kinase CK-MB (CK-2) Troponin T NT-Pro-B Natriuret Pep Total Protein Albumin Triglycerides HDL Cholesterol Urine WBC (Auto) Urine Creatinine Urine Total Protein Vancomycin Trough 06/12/19 06/12/19 06/13/19 18:47 21:27 00:04 WBC RBC Hgb Hct MCV MCH MCHC RDW Plt Count Lymph % (Auto) [place] % (Auto) Eos % (Auto) Lymph # [place] # Eos # Seg Neutrophils % Seg Neuts % (Manual) Lymphocytes % (Manual) Monocytes % (Manual) Eosinophils % (Manual) Nucleated RBC % Seg Neutrophils # Seg Neutrophils # Man Lymphocytes # (Manual) Monocytes # (Manual) Eosinophils # (Manual) PT INR APTT Fibrinogen POC ABG pH ABG pH POC ABG pCO2 POC ABG pO2 ABG pO2 ABG HCO3 ABG O2 Saturation ABG Base Excess ABG Hemoglobin Oxyhemoglobin Sodium Potassium Chloride Carbon Dioxide BUN Creatinine Glucose POC Glucose 210 H 263 H 248 H Uric Acid Calcium Phosphorus Magnesium AST ALT Total Creatine Kinase CK-MB (CK-2) Troponin T NT-Pro-B Natriuret Pep Total Protein Albumin Triglycerides HDL Cholesterol Urine WBC (Auto) Urine Creatinine Urine Total Protein Vancomycin Trough 06/13/19 06/13/19 06/13/19 04:32 05:46 13:30 WBC RBC Hgb Hct MCV MCH MCHC RDW Plt Count Lymph % (Auto) [place] % (Auto) Eos % (Auto) Lymph # [place] # Eos # Seg Neutrophils % Seg Neuts % (Manual) Lymphocytes % (Manual) Monocytes % (Manual) Eosinophils % (Manual) Nucleated RBC % Seg Neutrophils # Seg Neutrophils # Man Lymphocytes # (Manual) Monocytes # (Manual) Eosinophils # (Manual) PT INR APTT Fibrinogen POC ABG pH ABG pH POC ABG pCO2 POC ABG pO2 ABG pO2 ABG HCO3 ABG O2 Saturation ABG Base Excess ABG Hemoglobin Oxyhemoglobin Sodium Potassium Chloride Carbon Dioxide BUN 27 H Creatinine 0.7 L Glucose 253 H POC Glucose 201 H 241 H Uric Acid Calcium Phosphorus Magnesium AST ALT Total Creatine Kinase CK-MB (CK-2) Troponin T NT-Pro-B Natriuret Pep Total Protein Albumin Triglycerides HDL Cholesterol Urine WBC (Auto) Urine Creatinine Urine Total Protein Vancomycin Trough 06/13/19 06/13/19 06/14/19 17:33 23:49 04:50 WBC RBC Hgb Hct MCV MCH MCHC RDW Plt Count Lymph % (Auto) [place] % (Auto) Eos % (Auto) Lymph # [place] # Eos # Seg Neutrophils % Seg Neuts % (Manual) Lymphocytes % (Manual) Monocytes % (Manual) Eosinophils % (Manual) Nucleated RBC % Seg Neutrophils # Seg Neutrophils # Man Lymphocytes # (Manual) Monocytes # (Manual) Eosinophils # (Manual) PT INR APTT Fibrinogen POC ABG pH ABG pH POC ABG pCO2 POC ABG pO2 ABG pO2 ABG HCO3 ABG O2 Saturation ABG Base Excess ABG Hemoglobin Oxyhemoglobin Sodium Potassium Chloride Carbon Dioxide BUN 37 H Creatinine Glucose 256 H POC Glucose 264 H 236 H Uric Acid Calcium Phosphorus Magnesium AST ALT Total Creatine Kinase CK-MB (CK-2) Troponin T NT-Pro-B Natriuret Pep Total Protein Albumin Triglycerides HDL Cholesterol Urine WBC (Auto) Urine Creatinine Urine Total Protein Vancomycin Trough 06/14/19 06/14/19 06/14/19 05:26 12:31 18:32 WBC RBC Hgb Hct MCV MCH MCHC RDW Plt Count Lymph % (Auto) [place] % (Auto) Eos % (Auto) Lymph # [place] # Eos # Seg Neutrophils % Seg Neuts % (Manual) Lymphocytes % (Manual) Monocytes % (Manual) Eosinophils % (Manual) Nucleated RBC % Seg Neutrophils # Seg Neutrophils # Man Lymphocytes # (Manual) Monocytes # (Manual) Eosinophils # (Manual) PT INR APTT Fibrinogen POC ABG pH ABG pH POC ABG pCO2 POC ABG pO2 ABG pO2 ABG HCO3 ABG O2 Saturation ABG Base Excess ABG Hemoglobin Oxyhemoglobin Sodium Potassium Chloride Carbon Dioxide BUN Creatinine Glucose POC Glucose 239 H 116 H 247 H Uric Acid Calcium Phosphorus Magnesium AST ALT Total Creatine Kinase CK-MB (CK-2) Troponin T NT-Pro-B Natriuret Pep Total Protein Albumin Triglycerides HDL Cholesterol Urine WBC (Auto) Urine Creatinine Urine Total Protein Vancomycin Trough 06/14/19 06/15/19 06/15/19 23:57 04:05 05:55 WBC RBC Hgb Hct MCV MCH MCHC RDW Plt Count Lymph % (Auto) [place] % (Auto) Eos % (Auto) Lymph # [place] # Eos # Seg Neutrophils % Seg Neuts % (Manual) Lymphocytes % (Manual) Monocytes % (Manual) Eosinophils % (Manual) Nucleated RBC % Seg Neutrophils # Seg Neutrophils # Man Lymphocytes # (Manual) Monocytes # (Manual) Eosinophils # (Manual) PT INR APTT Fibrinogen POC ABG pH ABG pH POC ABG pCO2 POC ABG pO2 ABG pO2 ABG HCO3 ABG O2 Saturation ABG Base Excess ABG Hemoglobin Oxyhemoglobin Sodium Potassium Chloride Carbon Dioxide BUN 46 H Creatinine 0.7 L Glucose 265 H POC Glucose 206 H 265 H Uric Acid Calcium Phosphorus Magnesium AST ALT Total Creatine Kinase CK-MB (CK-2) Troponin T NT-Pro-B Natriuret Pep Total Protein Albumin Triglycerides HDL Cholesterol Urine WBC (Auto) Urine Creatinine Urine Total Protein Vancomycin Trough 06/15/19 06/15/19 06/15/19 12:08 18:45 23:41 WBC RBC Hgb Hct MCV MCH MCHC RDW Plt Count Lymph % (Auto) [place] % (Auto) Eos % (Auto) Lymph # [place] # Eos # Seg Neutrophils % Seg Neuts % (Manual) Lymphocytes % (Manual) Monocytes % (Manual) Eosinophils % (Manual) Nucleated RBC % Seg Neutrophils # Seg Neutrophils # Man Lymphocytes # (Manual) Monocytes # (Manual) Eosinophils # (Manual) PT INR APTT Fibrinogen POC ABG pH ABG pH POC ABG pCO2 POC ABG pO2 ABG pO2 ABG HCO3 ABG O2 Saturation ABG Base Excess ABG Hemoglobin Oxyhemoglobin Sodium Potassium Chloride Carbon Dioxide BUN Creatinine Glucose POC Glucose 224 H 177 H 193 H Uric Acid Calcium Phosphorus Magnesium AST ALT Total Creatine Kinase CK-MB (CK-2) Troponin T NT-Pro-B Natriuret Pep Total Protein Albumin Triglycerides HDL Cholesterol Urine WBC (Auto) Urine Creatinine Urine Total Protein Vancomycin Trough 06/16/19 06/16/19 06/16/19 05:00 05:00 05:40 WBC 11.9 H RBC 3.24 L Hgb 9.0 L Hct 29.0 L MCV MCH MCHC 31 L RDW 18.6 H Plt Count 111 L Lymph % (Auto) [place] % (Auto) Eos % (Auto) Lymph # [place] # Eos # Seg Neutrophils % Seg Neuts % (Manual) 92.0 H Lymphocytes % (Manual) 2.0 L Monocytes % (Manual) Eosinophils % (Manual) Nucleated RBC % Seg Neutrophils # Seg Neutrophils # Man 10.9 H Lymphocytes # (Manual) 0.2 L Monocytes # (Manual) Eosinophils # (Manual) PT INR APTT Fibrinogen POC ABG pH ABG pH POC ABG pCO2 POC ABG pO2 ABG pO2 ABG HCO3 ABG O2 Saturation ABG Base Excess ABG Hemoglobin Oxyhemoglobin Sodium Potassium Chloride Carbon Dioxide 33 H BUN 49 H Creatinine 0.7 L Glucose 264 H POC Glucose 247 H Uric Acid Calcium Phosphorus Magnesium AST ALT Total Creatine Kinase CK-MB (CK-2) Troponin T NT-Pro-B Natriuret Pep Total Protein Albumin Triglycerides HDL Cholesterol Urine WBC (Auto) Urine Creatinine Urine Total Protein Vancomycin Trough 06/16/19 06/16/19 06/16/19 12:03 17:11 18:11 WBC RBC Hgb Hct MCV MCH MCHC RDW Plt Count Lymph % (Auto) [place] % (Auto) Eos % (Auto) Lymph # [place] # Eos # Seg Neutrophils % Seg Neuts % (Manual) Lymphocytes % (Manual) Monocytes % (Manual) Eosinophils % (Manual) Nucleated RBC % Seg Neutrophils # Seg Neutrophils # Man Lymphocytes # (Manual) Monocytes # (Manual) Eosinophils # (Manual) PT INR APTT Fibrinogen POC ABG pH ABG pH 7.289 L POC ABG pCO2 POC ABG pO2 ABG pO2 399.3 H ABG HCO3 30.1 H ABG O2 Saturation 99.6 H ABG Base Excess ABG Hemoglobin 8.6 L Oxyhemoglobin Sodium Potassium Chloride Carbon Dioxide BUN Creatinine Glucose POC Glucose 252 H 254 H Uric Acid Calcium Phosphorus Magnesium AST ALT Total Creatine Kinase CK-MB (CK-2) Troponin T NT-Pro-B Natriuret Pep Total Protein Albumin Triglycerides HDL Cholesterol Urine WBC (Auto) Urine Creatinine Urine Total Protein Vancomycin Trough 06/16/19 06/17/19 06/17/19 23:16 05:30 05:53 WBC RBC Hgb Hct MCV MCH MCHC RDW Plt Count Lymph % (Auto) [place] % (Auto) Eos % (Auto) Lymph # [place] # Eos # Seg Neutrophils % Seg Neuts % (Manual) Lymphocytes % (Manual) Monocytes % (Manual) Eosinophils % (Manual) Nucleated RBC % Seg Neutrophils # Seg Neutrophils # Man Lymphocytes # (Manual) Monocytes # (Manual) Eosinophils # (Manual) PT INR APTT Fibrinogen POC ABG pH ABG pH POC ABG pCO2 POC ABG pO2 ABG pO2 ABG HCO3 ABG O2 Saturation ABG Base Excess ABG Hemoglobin Oxyhemoglobin Sodium 147 H Potassium Chloride Carbon Dioxide 32 H BUN 60 H Creatinine Glucose 205 H POC Glucose 238 H 211 H Uric Acid Calcium Phosphorus Magnesium AST ALT Total Creatine Kinase CK-MB (CK-2) Troponin T NT-Pro-B Natriuret Pep Total Protein Albumin Triglycerides HDL Cholesterol Urine WBC (Auto) Urine Creatinine Urine Total Protein Vancomycin Trough 06/17/19 06/17/19 06/17/19 09:50 12:27 12:45 WBC RBC 2.79 L Hgb 8.2 L Hct 24.6 L MCV MCH MCHC RDW 18.5 H Plt Count 95 L Lymph % (Auto) [place] % (Auto) Eos % (Auto) Lymph # [place] # Eos # Seg Neutrophils % Seg Neuts % (Manual) Lymphocytes % (Manual) Monocytes % (Manual) Eosinophils % (Manual) Nucleated RBC % Seg Neutrophils # Seg Neutrophils # Man Lymphocytes # (Manual) Monocytes # (Manual) Eosinophils # (Manual) PT INR APTT Fibrinogen 194 L POC ABG pH ABG pH POC ABG pCO2 POC ABG pO2 ABG pO2 ABG HCO3 ABG O2 Saturation ABG Base Excess ABG Hemoglobin Oxyhemoglobin Sodium Potassium Chloride Carbon Dioxide BUN Creatinine Glucose POC Glucose 224 H Uric Acid Calcium Phosphorus Magnesium AST ALT Total Creatine Kinase CK-MB (CK-2) Troponin T NT-Pro-B Natriuret Pep Total Protein Albumin Triglycerides HDL Cholesterol Urine WBC (Auto) Urine Creatinine Urine Total Protein Vancomycin Trough 06/17/19 06/17/19 06/17/19 18:41 22:00 23:23 WBC RBC Hgb Hct MCV MCH MCHC RDW Plt Count Lymph % (Auto) [place] % (Auto) Eos % (Auto) Lymph # [place] # Eos # Seg Neutrophils % Seg Neuts % (Manual) Lymphocytes % (Manual) Monocytes % (Manual) Eosinophils % (Manual) Nucleated RBC % Seg Neutrophils # Seg Neutrophils # Man Lymphocytes # (Manual) Monocytes # (Manual) Eosinophils # (Manual) PT INR APTT Fibrinogen POC ABG pH ABG pH POC ABG pCO2 POC ABG pO2 ABG pO2 ABG HCO3 ABG O2 Saturation ABG Base Excess ABG Hemoglobin Oxyhemoglobin Sodium Potassium Chloride Carbon Dioxide BUN Creatinine Glucose POC Glucose 198 H 166 H 171 H Uric Acid Calcium Phosphorus Magnesium AST ALT Total Creatine Kinase CK-MB (CK-2) Troponin T NT-Pro-B Natriuret Pep Total Protein Albumin Triglycerides HDL Cholesterol Urine WBC (Auto) Urine Creatinine Urine Total Protein Vancomycin Trough 06/17/19 06/18/19 06/18/19 Unknown 03:50 04:25 WBC RBC Hgb Hct MCV MCH MCHC RDW Plt Count Lymph % (Auto) [place] % (Auto) Eos % (Auto) Lymph # [place] # Eos # Seg Neutrophils % Seg Neuts % (Manual) Lymphocytes % (Manual) Monocytes % (Manual) Eosinophils % (Manual) Nucleated RBC % Seg Neutrophils # Seg Neutrophils # Man Lymphocytes # (Manual) Monocytes # (Manual) Eosinophils # (Manual) PT INR APTT Fibrinogen POC ABG pH ABG pH 7.564 H 7.499 H POC ABG pCO2 POC ABG pO2 ABG pO2 238.6 H 130.8 H ABG HCO3 33.6 H 32.5 H ABG O2 Saturation 99.4 H ABG Base Excess 10.6 H 8.5 H ABG Hemoglobin 7.9 L 8.8 L Oxyhemoglobin Sodium 151 H Potassium 3.4 L Chloride Carbon Dioxide BUN 66 H Creatinine Glucose 189 H POC Glucose Uric Acid Calcium Phosphorus Magnesium AST ALT Total Creatine Kinase CK-MB (CK-2) Troponin T NT-Pro-B Natriuret Pep Total Protein Albumin Triglycerides HDL Cholesterol Urine WBC (Auto) Urine Creatinine Urine Total Protein Vancomycin Trough 06/18/19 06/18/19 06/18/19 05:25 05:27 11:50 WBC RBC 2.61 L Hgb 7.4 L Hct 22.9 L MCV MCH MCHC RDW 19.9 H Plt Count 81 L Lymph % (Auto) 12.9 L [place] % (Auto) 7.7 H Eos % (Auto) Lymph # 1.1 L [place] # Eos # Seg Neutrophils % 77.4 H Seg Neuts % (Manual) Lymphocytes % (Manual) Monocytes % (Manual) Eosinophils % (Manual) Nucleated RBC % Seg Neutrophils # Seg Neutrophils # Man Lymphocytes # (Manual) Monocytes # (Manual) Eosinophils # (Manual) PT INR APTT Fibrinogen POC ABG pH ABG pH POC ABG pCO2 POC ABG pO2 ABG pO2 ABG HCO3 ABG O2 Saturation ABG Base Excess ABG Hemoglobin Oxyhemoglobin Sodium Potassium Chloride Carbon Dioxide BUN Creatinine Glucose POC Glucose 186 H 263 H Uric Acid Calcium Phosphorus Magnesium AST ALT Total Creatine Kinase CK-MB (CK-2) Troponin T NT-Pro-B Natriuret Pep Total Protein Albumin Triglycerides HDL Cholesterol Urine WBC (Auto) Urine Creatinine Urine Total Protein Vancomycin Trough 06/18/19 06/18/19 06/18/19 18:35 21:31 23:21 WBC RBC Hgb Hct MCV MCH MCHC RDW Plt Count Lymph % (Auto) [place] % (Auto) Eos % (Auto) Lymph # [place] # Eos # Seg Neutrophils % Seg Neuts % (Manual) Lymphocytes % (Manual) Monocytes % (Manual) Eosinophils % (Manual) Nucleated RBC % Seg Neutrophils # Seg Neutrophils # Man Lymphocytes # (Manual) Monocytes # (Manual) Eosinophils # (Manual) PT INR APTT Fibrinogen POC ABG pH ABG pH POC ABG pCO2 POC ABG pO2 ABG pO2 ABG HCO3 ABG O2 Saturation ABG Base Excess ABG Hemoglobin Oxyhemoglobin Sodium Potassium Chloride Carbon Dioxide BUN Creatinine Glucose POC Glucose 154 H 186 H 202 H Uric Acid Calcium Phosphorus Magnesium AST ALT Total Creatine Kinase CK-MB (CK-2) Troponin T NT-Pro-B Natriuret Pep Total Protein Albumin Triglycerides HDL Cholesterol Urine WBC (Auto) Urine Creatinine Urine Total Protein Vancomycin Trough 06/19/19 06/19/19 06/19/19 03:18 04:30 04:30 WBC RBC 2.65 L Hgb 7.5 L Hct 23.1 L MCV MCH MCHC RDW 19.4 H Plt Count 74 L Lymph % (Auto) 8.8 L [place] % (Auto) 9.4 H Eos % (Auto) 4.7 H Lymph # 0.6 L [place] # Eos # Seg Neutrophils % 76.6 H Seg Neuts % (Manual) Lymphocytes % (Manual) Monocytes % (Manual) Eosinophils % (Manual) Nucleated RBC % Seg Neutrophils # Seg Neutrophils # Man Lymphocytes # (Manual) Monocytes # (Manual) Eosinophils # (Manual) PT INR APTT Fibrinogen POC ABG pH ABG pH 7.452 H POC ABG pCO2 POC ABG pO2 ABG pO2 105.5 H ABG HCO3 32.3 H ABG O2 Saturation ABG Base Excess 7.6 H ABG Hemoglobin 6.9 L Oxyhemoglobin Sodium 150 H Potassium 3.3 L Chloride Carbon Dioxide 31 H BUN 56 H Creatinine Glucose 197 H POC Glucose Uric Acid Calcium Phosphorus Magnesium AST ALT Total Creatine Kinase CK-MB (CK-2) Troponin T NT-Pro-B Natriuret Pep Total Protein Albumin Triglycerides 210 H HDL Cholesterol Urine WBC (Auto) Urine Creatinine Urine Total Protein Vancomycin Trough 06/19/19 06/19/19 05:24 12:18 WBC RBC Hgb Hct MCV MCH MCHC RDW Plt Count Lymph % (Auto) [place] % (Auto) Eos % (Auto) Lymph # [place] # Eos # Seg Neutrophils % Seg Neuts % (Manual) Lymphocytes % (Manual) Monocytes % (Manual) Eosinophils % (Manual) Nucleated RBC % Seg Neutrophils # Seg Neutrophils # Man Lymphocytes # (Manual) Monocytes # (Manual) Eosinophils # (Manual) PT INR APTT Fibrinogen POC ABG pH ABG pH POC ABG pCO2 POC ABG pO2 ABG pO2 ABG HCO3 ABG O2 Saturation ABG Base Excess ABG Hemoglobin Oxyhemoglobin Sodium Potassium Chloride Carbon Dioxide BUN Creatinine Glucose POC Glucose 176 H 260 H Uric Acid Calcium Phosphorus Magnesium AST ALT Total Creatine Kinase CK-MB (CK-2) Troponin T NT-Pro-B Natriuret Pep Total Protein Albumin Triglycerides HDL Cholesterol Urine WBC (Auto) Urine Creatinine Urine Total Protein Vancomycin Trough Chest x-ray: report reviewed, image reviewed
--- NOTE | 2019-06-19 19:23 | Progress Note ---
Assessment and Plan Assessment: * Acute kidney injury attributed to vancomycin toxicity - recovered, previously on hemodialysis * Hypernatremia * Acute hypoxic/hypercapneic respiratory failure * Hypertension * Hypokalemia * Morbid obesity Plan: * Renal function has recovered. No indication for hemodialysis * Continue D5W at current rate. Diuretics on hold * Will arrange removal of permcath upcoming week * Vent management per pulmonary medicine - note plans for trach/PEG * Continue antiHTN medications * Dose medications for renal function * Avoid nephrotoxins Subjective Date of service: 06/19/19 Principal diagnosis: HF; acute hypoxemic resp failure, SIRS, CARLA Interval history: No acute events overnight Objective - Vital Signs Vital signs: Vital Signs - 12hr 06/19/19 06/19/19 06/19/19 07:30 07:46 08:00 Temperature 98.4 F Pulse Rate 85 83 83 Pulse Rate [ 80 From Monitor] Respiratory 16 19 12 Rate Blood Pressure 199/74 199/74 199/74 O2 Sat by Pulse 97 96 97 Oximetry 06/19/19 06/19/19 06/19/19 08:15 08:30 08:45 Temperature Pulse Rate 83 86 86 Pulse Rate [ From Monitor] Respiratory 14 18 19 Rate Blood Pressure 136/72 136/72 170/81 O2 Sat by Pulse 98 98 96 Oximetry 06/19/19 06/19/19 06/19/19 09:00 09:15 09:30 Temperature Pulse Rate 78 81 80 Pulse Rate [ From Monitor] Respiratory 18 19 17 Rate Blood Pressure 159/59 150/50 147/47 O2 Sat by Pulse 99 99 98 Oximetry 06/19/19 06/19/19 06/19/19 09:46 10:00 10:16 Temperature Pulse Rate 80 86 91 H Pulse Rate [ From Monitor] Respiratory 16 17 22 Rate Blood Pressure 204/83 195/82 195/82 O2 Sat by Pulse 97 98 99 Oximetry 06/19/19 06/19/19 06/19/19 10:23 10:30 10:45 Temperature Pulse Rate 91 H 86 86 Pulse Rate [ From Monitor] Respiratory 14 20 Rate Blood Pressure 216/112 205/106 196/88 O2 Sat by Pulse 98 99 Oximetry 06/19/19 06/19/19 06/19/19 11:00 11:15 11:30 Temperature Pulse Rate 85 85 89 Pulse Rate [ From Monitor] Respiratory 19 19 13 Rate Blood Pressure 186/84 200/89 180/79 O2 Sat by Pulse 97 99 97 Oximetry 06/19/19 06/19/19 06/19/19 11:45 11:51 12:00 Temperature 98.8 F Pulse Rate 87 86 83 Pulse Rate [ 85 From Monitor] Respiratory 19 17 Rate Blood Pressure 194/88 194/88 208/89 O2 Sat by Pulse 98 100 96 Oximetry 06/19/19 06/19/19 06/19/19 12:15 12:30 12:43 Temperature Pulse Rate 87 83 83 Pulse Rate [ From Monitor] Respiratory 20 18 Rate Blood Pressure 198/89 206/76 206/76 O2 Sat by Pulse 96 96 Oximetry 06/19/19 06/19/19 06/19/19 12:45 13:00 13:15 Temperature Pulse Rate 83 84 83 Pulse Rate [ From Monitor] Respiratory 20 17 19 Rate Blood Pressure 188/92 188/92 137/48 O2 Sat by Pulse 97 96 96 Oximetry 06/19/19 06/19/19 06/19/19 13:30 13:45 14:00 Temperature Pulse Rate 84 84 89 Pulse Rate [ From Monitor] Respiratory 23 20 20 Rate Blood Pressure 136/44 129/43 129/43 O2 Sat by Pulse 95 96 98 Oximetry 06/19/19 06/19/19 06/19/19 14:10 14:15 14:30 Temperature Pulse Rate 92 H 91 H 87 Pulse Rate [ From Monitor] Respiratory 18 21 Rate Blood Pressure 147/69 156/48 137/44 O2 Sat by Pulse 98 100 Oximetry 06/19/19 06/19/19 06/19/19 14:45 15:00 15:16 Temperature Pulse Rate 86 84 87 Pulse Rate [ From Monitor] Respiratory 22 20 23 Rate Blood Pressure 130/43 127/43 132/48 O2 Sat by Pulse 99 98 97 Oximetry 06/19/19 06/19/19 06/19/19 15:30 15:45 16:00 Temperature 98.9 F Pulse Rate 85 85 87 Pulse Rate [ 83 From Monitor] Respiratory 19 19 19 Rate Blood Pressure 139/47 144/44 141/51 O2 Sat by Pulse 99 99 100 Oximetry 06/19/19 06/19/19 06/19/19 16:15 16:30 16:45 Temperature Pulse Rate 85 84 86 Pulse Rate [ From Monitor] Respiratory 14 19 21 Rate Blood Pressure 149/47 141/51 160/52 O2 Sat by Pulse 98 97 96 Oximetry 06/19/19 06/19/19 06/19/19 17:00 17:15 17:30 Temperature Pulse Rate 85 83 82 Pulse Rate [ From Monitor] Respiratory 18 19 17 Rate Blood Pressure 155/47 147/52 134/47 O2 Sat by Pulse 98 98 97 Oximetry 06/19/19 06/19/19 06/19/19 17:46 18:00 18:15 Temperature Pulse Rate 84 82 84 Pulse Rate [ From Monitor] Respiratory 21 20 19 Rate Blood Pressure 135/44 134/44 126/43 O2 Sat by Pulse 99 97 98 Oximetry 06/19/19 06/19/19 06/19/19 18:30 18:46 19:00 Temperature Pulse Rate 86 83 90 Pulse Rate [ From Monitor] Respiratory 19 14 16 Rate Blood Pressure 138/55 149/53 149/53 O2 Sat by Pulse 98 99 98 Oximetry 06/19/19 19:15 Temperature Pulse Rate 87 Pulse Rate [ From Monitor] Respiratory 20 Rate Blood Pressure 141/46 O2 Sat by Pulse 99 Oximetry - General Appearance General appearance: obese, intubated EENT: ATNC, other (ETT in place) Respiratory: Present: Decreased Breath Sounds Cardiology: regular, S1S2 Gastrointestinal: hypoactive bowel sounds, obese Integumentary: warm and dry Musculoskeletal: other (no edema) - Lab 06/19/19 04:30 06/19/19 04:30 Most recent lab results ABG pH 7.452 pH Units (7.350-7.450) H 06/19/19 03:18 ABG pCO2 47.3 mm Hg 06/19/19 03:18 ABG pO2 105.5 mm Hg (80.0-90.0) H 06/19/19 03:18 ABG HCO3 32.3 mmol/L (20.0-26.0) H 06/19/19 03:18 ABG O2 Saturation 97.9 % (95.0-99.0) 06/19/19 03:18 Calcium 9.4 mg/dL (8.4-10.2) 06/19/19 04:30 Phosphorus 3.70 mg/dL (2.5-4.5) 06/10/19 05:45 Magnesium 1.40 mg/dL (1.7-2.3) L 06/12/19 03:21 Urine Creatinine 292.8 mg/dL (0.1-20.0) H 05/07/19 22:40 Urine Sodium 11 mmol/L 05/07/19 22:40 Urine Total Protein 269 mg/dL (5-11.8) H 05/07/19 22:40 Medications & Allergies - Medications Allergies/Adverse Reactions: Allergies No Known Allergies Allergy (Verified 05/01/19 20:27) Home Medications: Home Medications Medication Instructions Recorded Confirmed Last Taken Type No Known Home Medications [No 05/03/19 05/03/19 Unknown History Reported Home Medications] Active Medications: Generic Name Dose Route Start Last Admin Trade Name Freq PRN Reason Stop Dose Admin Acetaminophen 650 mg 06/17/19 10:00 06/17/19 21:20 Tylenol PO 650 mg Q6H PRN Administration FOR TEMP >/=100.4 Lipase/Protease/Amylase 1 each 05/14/19 15:[address] 10,500 Unit FEEDTUBE PRN PRN For Clogged Feeding Tube Dextrose 50 gm 05/01/19 20:24 D50w (25gm) Vial IV Q30MIN PRN Hypoglycemia Protocol Famotidine 20 mg 06/17/19 10:00 06/19/19 09:57 Pepcid PO 20 mg BID VICKEY Administration Ferrous Sulfate 308 mg 06/18/19 12:00 06/19/19 09:56 Ferrous Sulfate PO 308 mg QDAY VICKEY Administration Hydrophilic Ointment 1 applic 06/16/19 17:34 Vaseline Lip Therapy TP Q2HR PRN Dry Lips Propofol 1,000 mg in 100 mls @ 7.716 mls/hr 06/16/19 21:00 06/19/19 19:07 Diprivan 10 Mg/Ml IV 20 mcg/kg/min TITR VICKEY 30.864 mls/hr Administration Protocol 5 MCG/KG/MIN Cefepime HCl 2 gm in 100 mls @ 200 mls/hr 06/17/19 14:00 06/19/19 14:10 Cefepime/Ns 2 Gm/100 Ml IV 200 mls/hr Q8HR VICKEY Administration Protocol Fentanyl Citrate 2,000 mcg in 100 mls @ 12.86 mls/hr 06/17/19 14:00 Fentanyl Drip Premix IV TITR VICKEY Protocol 1 MCG/KG/HR Dextrose 1,000 mls @ 100 mls/hr 06/18/19 11:00 06/19/19 16:18 D5w IV 100 mls/hr DIRECT VICKEY Administration Insulin Glargine 15 units 06/16/19 22:00 06/18/19 21:30 Lantus SUB-Q 15 units QHS VICKEY Administration Insulin Human Lispro 0 unit 06/01/19 14:00 06/19/19 19:08 Humalog SUB-Q 3 unit Q6HR VICKEY Administration Protocol Labetalol HCl 10 mg 06/11/19 22:48 06/19/19 10:23 Labetalol IV 10 mg Q4H PRN Administration BP >170/105; hold for HR <60 Labetalol HCl 200 mg 06/13/19 11:36 06/19/19 14:10 Labetalol PO 200 mg Q8HR VICKEY Administration Levetiracetam 750 mg 06/16/19 10:00 06/19/19 09:56 Keppra PO 750 mg BID VICKEY Administration Methylprednisolone Sodium Succinate 20 mg 06/14/19 18:00 06/19/19 19:11 Solu-Medrol IV 20 mg Q8H VICKEY Administration Minoxidil 2.5 mg 06/06/19 22:00 06/19/19 09:56 Loniten PO 2.5 mg BID VICKEY Administration Multi-Ingred Cream/Lotion/Oil/Oint 1 applic 06/16/19 18:00 Artificial Tears Ophth Oint OU Q4HR PRN Dry Eye(s) Potassium Chloride 40 meq 06/19/19 10:00 06/19/19 09:56 Potassium Chloride FEEDTUBE 40 meq QDAY VICKEY Administration Simple Syrup 15 ml 05/14/19 15:01 Simple Syrup FEEDTUBE PRN PRN Hypoglycemia Simple Syrup 30 ml 05/14/19 15:01 Simple Syrup FEEDTUBE PRN PRN Hypoglycemia Sodium Bicarbonate 325 mg 05/14/19 15:01 Sodium Bicarbonate FEEDTUBE PRN PRN For Clogged Feeding Tube Valsartan 160 mg 06/19/19 13:00 06/19/19 12:43 Diovan FEEDTUBE 160 mg BID VICKEY Administration
[2019-06-19] MEDS: INSULIN GLARGINE 100 UNITS/ML SUB-Q SCH (22:51)
[2019-06-20] MEDS: methylPREDNISolone Sod Succinate 40 MG/1 ML INJ IV SCH ×4 (01:45→22:37)
[2019-06-20] MEDS: INSULIN LISPRO 100 UNIT/ML SUB-Q SCH ×4 (01:45→19:06)
[2019-06-20] MEDS: DEXTROSE 5% IN WATER 1,000 ML IV SCH ×2 (03:19→15:49)
--- NOTE | 2019-06-20 03:37 | XRay Report ---
CHEST 1 VIEW INDICATION / CLINICAL INFORMATION: follow up respiratory failure. COMPARISON: 06/19/2019 FINDINGS: SUPPORT DEVICES: Tubes and lines appear unchanged HEART / MEDIASTINUM: Unchanged LUNGS / PLEURA: Lungs appear unchanged. No pneumothorax. ADDITIONAL FINDINGS: No significant additional findings. IMPRESSION: 1. No significant change. Signer Name: Bony Israel MD Signed: 06/20/2019 3:32 AM Workstation Name: [id number]
[2019-06-20 05:52] LABS: Basophils % (Auto) 0.3 % (0.0-1.8); Eosinophils # (Auto) 0.5 K/mm3 (0.0-0.4); Eosinophils % (Auto) 5.2 % (0.0-4.3); Hematocrit 24.3 % (35.5-45.6); Hemoglobin 7.9 gm/dl (11.8-15.2); Lymphocytes # (Auto) 0.9 K/mm3 (1.2-5.4); Lymphocytes % (Auto) 9.2 % (13.4-35.0); Mean Corpuscular HGB Conc 33 % (32-34); Mean Corpuscular Volume 87 fl (84-94); Monocytes # (Auto) 1.2 K/mm3 (0.0-0.8); Red Blood Count 2.79 M/mm3 (3.65-5.03); Red Cell Distribution Width 19.6 % (13.2-15.2)
[2019-06-20 05:54] LABS: Platelet Count 92 K/mm3 (140-440)
[2019-06-20] MEDS: CEFEPIME/NS 2 GM/100 ML 2 GM/100 ML BAG IV SCH ×2 (05:56→14:12)
[2019-06-20 06:08] LABS: BUN/Creatinine Ratio 45; Blood Urea Nitrogen 59 mg/dL (9-20); Calcium 9.3 mg/dL (8.4-10.2); Hemolysis Index 0
[2019-06-20 06:16] LABS: ABG Base Excess 5.8 mmol/L (-2.0-3.0); ABG HCO3 30.3 mmol/L (20.0-26.0); ABG Methemoglobin 0.5 % (0.0-1.5); ABG Oxygen Saturation 92.3 % (95.0-99.0); ABG PCO2 44.1 mm Hg; ABG PH 7.455 pH Units (7.350-7.450); ABG PO2 60.9 mm Hg (80.0-90.0)
--- NOTE | 2019-06-20 08:16 | Hem/Onc Progress Note ---
Assessment and Plan 1. Thrombocytopenia. This may be medication related. The patient had received Lovenox, HIT test has been ordered. Doppler is negative. Other medication like antibiotics may also have a role in this pharmacy evaluation of trend of medications will help. 2. Anemia. deficiency investigations. 3. Short of breath, intubated. 4. History of hypertension. 5. Status post cardiac arrest. 6. Renal impairment, acute tubular necrosis at one time, dialysis on hold. 7. Electrolyte imbalance. 8. I will follow the patient during inpatient stay. - Patient Problems (1) Thrombocytopenia Current Visit: Yes Status: Acute Subjective Date of service: 06/20/19 Principal diagnosis: LOW PLT Interval history: on vent - no bleeding Objective - Exam Narrative Exam: Pain - n/a - pt on vent General appearance - vent Performance status complete dependence for care Eyes - no icterus ENT - no bleeding LNs cervical not palpable Neck - no LN Respiratory Normal - on o2 Breath sounds - CTA anteriorly CVS S1 S2 + Extremities edema General GI Soft Rectal deferred male - deferred Skin warm Musculoskeletal - moves limbs Neurologically awake - Constitutional Vitals: Last Vital Signs Temp 99.2 F 06/20/19 03:49 Pulse 88 06/20/19 07:54 Resp 17 06/20/19 07:45 BP 128/50 06/20/19 07:54 Pulse Ox 99 06/20/19 07:54 - Labs Lab Results: Laboratory Results - last 24 hr 06/19/19 06/19/19 06/19/19 12:18 18:55 22:57 WBC RBC Hgb Hct MCV MCH MCHC RDW Plt Count Lymph % (Auto) Burt % (Auto) Eos % (Auto) Baso % (Auto) Lymph # Burt # Eos # Baso # Seg Neutrophils % Seg Neutrophils # ABG pH ABG pCO2 ABG pO2 ABG HCO3 ABG O2 Saturation ABG O2 Content ABG Base Excess ABG Hemoglobin ABG Carboxyhemoglobin ABG Methemoglobin Oxyhemoglobin FiO2 Sodium Potassium Chloride Carbon Dioxide Anion Gap BUN Creatinine Estimated GFR BUN/Creatinine Ratio Glucose POC Glucose 260 H 192 H 145 H Calcium Magnesium 06/19/19 06/20/19 06/20/19 23:46 04:40 04:40 WBC 10.4 RBC 2.79 L Hgb 7.9 L Hct 24.3 L MCV 87 MCH 28 MCHC 33 RDW 19.6 H Plt Count 92 L Lymph % (Auto) 9.2 L Burt % (Auto) 12.0 H Eos % (Auto) 5.2 H Baso % (Auto) 0.3 Lymph # 0.9 L Burt # 1.2 H Eos # 0.5 H Baso # 0.0 Seg Neutrophils % 73.3 H Seg Neutrophils # 7.6 ABG pH ABG pCO2 ABG pO2 ABG HCO3 ABG O2 Saturation ABG O2 Content ABG Base Excess ABG Hemoglobin ABG Carboxyhemoglobin ABG Methemoglobin Oxyhemoglobin FiO2 Sodium 143 Potassium 3.5 L Chloride 101.2 Carbon Dioxide 27 Anion Gap 18 BUN 59 H Creatinine 1.3 D Estimated GFR > 60 BUN/Creatinine Ratio 45 Glucose 200 H POC Glucose 216 H Calcium 9.3 Magnesium 1.60 L 06/20/19 06/20/19 05:40 05:54 WBC RBC Hgb Hct MCV MCH MCHC RDW Plt Count Lymph % (Auto) Burt % (Auto) Eos % (Auto) Baso % (Auto) Lymph # Burt # Eos # Baso # Seg Neutrophils % Seg Neutrophils # ABG pH 7.455 H ABG pCO2 44.1 ABG pO2 60.9 L ABG HCO3 30.3 H ABG O2 Saturation 92.3 L ABG O2 Content 10.5 ABG Base Excess 5.8 H ABG Hemoglobin 8.2 L ABG Carboxyhemoglobin 1.9 ABG Methemoglobin 0.5 Oxyhemoglobin 90.1 L FiO2 25 Sodium Potassium Chloride Carbon Dioxide Anion Gap BUN Creatinine Estimated GFR BUN/Creatinine Ratio Glucose POC Glucose 190 H Calcium Magnesium Medications & Allergies - Medications Allergies/Adverse Reactions: Allergies No Known Allergies Allergy (Verified 05/01/19 20:27) Home Medications: Home Medications Medication Instructions Recorded Confirmed Last Taken Type No Known Home Medications [No 05/03/19 05/03/19 Unknown History Reported Home Medications] Active Medications: Generic Name Dose Route Start Last Admin Trade Name Freq PRN Reason Stop Dose Admin Acetaminophen 650 mg 06/17/19 10:00 06/17/19 21:20 Tylenol PO 650 mg Q6H PRN Administration FOR TEMP >/=100.4 Lipase/Protease/Amylase 1 each 05/14/19 15:01 Pancreaze 10,500 Unit FEEDTUBE PRN PRN For Clogged Feeding Tube Dextrose 50 gm 05/01/19 20:24 D50w (25gm) Vial IV Q30MIN PRN Hypoglycemia Protocol Famotidine 20 mg 06/17/19 10:00 06/19/19 22:52 Pepcid PO 20 mg BID VICKEY Administration Ferrous Sulfate 308 mg 06/18/19 12:00 06/19/19 09:56 Ferrous Sulfate PO 308 mg QDAY VICKEY Administration Hydrophilic Ointment 1 applic 06/16/19 17:34 Vaseline Lip Therapy TP Q2HR PRN Dry Lips Propofol 1,000 mg in 100 mls @ 7.716 mls/hr 06/16/19 21:00 06/20/19 03:19 Diprivan 10 Mg/Ml IV 10 mcg/kg/min TITR VICKEY 15.432 mls/hr Administration Protocol 5 MCG/KG/MIN Cefepime HCl 2 gm in 100 mls @ 200 mls/hr 06/17/19 14:00 06/20/19 05:56 Cefepime/Ns 2 Gm/100 Ml IV 200 mls/hr Q8HR VIKCEY Administration Protocol Fentanyl Citrate 2,000 mcg in 100 mls @ 12.86 mls/hr 06/17/19 14:00 Fentanyl Drip Premix IV TITR VICKEY Protocol 1 MCG/KG/HR Dextrose 1,000 mls @ 100 mls/hr 06/18/19 11:00 06/20/19 03:19 D5w IV 100 mls/hr DIRECT VICKEY Administration Insulin Glargine 15 units 06/16/19 22:00 06/19/19 22:51 Lantus SUB-Q 15 units QHS [facility] Administration Insulin Human Lispro 0 unit 06/01/19 14:00 06/20/19 05:54 Humalog SUB-Q 3 unit Q6HR VICKEY Administration Protocol Labetalol HCl 10 mg 06/11/19 22:48 06/19/19 10:23 Labetalol IV 10 mg Q4H PRN Administration BP >170/105; hold for HR <60 Labetalol HCl 200 mg 06/13/19 11:36 06/20/19 05:55 Labetalol PO Not Given Q8HR [facility] Levetiracetam 750 mg 06/16/19 10:00 06/19/19 22:53 Keppra PO 750 mg BID [facility] Administration Methylprednisolone Sodium Succinate 20 mg 06/14/19 18:00 06/20/19 01:45 Solu-Medrol IV 20 mg Q8H VICKEY Administration Minoxidil 2.5 mg 06/06/19 22:00 06/19/19 22:52 Loniten PO 2.5 mg BID VICKEY Administration Multi-Ingred Cream/Lotion/Oil/Oint 1 applic 06/16/19 18:00 Artificial Tears Ophth Oint OU Q4HR PRN Dry Eye(s) Potassium Chloride 40 meq 06/19/19 10:00 06/19/19 09:56 Potassium Chloride FEEDTUBE 40 meq QDAY VICKEY Administration Simple Syrup 15 ml 05/14/19 15:01 Simple Syrup FEEDTUBE PRN PRN Hypoglycemia Simple Syrup 30 ml 05/14/19 15:01 Simple Syrup FEEDTUBE PRN PRN Hypoglycemia Sodium Bicarbonate 325 mg 05/14/19 15:01 Sodium Bicarbonate FEEDTUBE PRN PRN For Clogged Feeding Tube Valsartan 160 mg 06/19/19 13:00 06/19/19 22:52 Diovan FEEDTUBE 160 mg BID VICKEY Administration
--- NOTE | 2019-06-20 08:51 | Consultation ---
REFERRED BY: Dr. Jc. REASON FOR CONSULTATION: Low platelets. HISTORY OF PRESENT ILLNESS: I saw the patient, a 34-year-old male in the medical floor. The patient has been in the hospital since 05/01/2019. He was admitted because of shortness of breath, difficulty sleeping and low saturations, was cyanotic. He has had prolonged hospitalization and during this admission, has been seen by Surgical team, Nephrology team, ID team, Pulmonary team, Cardiology team and Neurology team. The patient was treated for cardiac arrest. Blood test showed fall of platelet. I have been asked to evaluate the patient for this. Surgical team evaluated the patient for trach and PEG placement. PAST MEDICAL HISTORY: Unknown. PAST SURGICAL HISTORY: Unknown. SOCIAL HISTORY: History of smoking as per notes. REVIEW OF SYSTEMS: Not reliable. The patient is on the vent, intubated. ALLERGIES: None. HOME MEDICATIONS: Unknown. MEDICATIONS: At this time include lipase, cefepime, dextrose, fentanyl, ferrous sulfate, insulin, labetalol, Solu-Medrol. The patient received Lovenox on 06/14/2019, before that I do not see heparin. PHYSICAL EXAMINATION: VITAL SIGNS: Temperature 98.9, pulse 91, respirations 21, BP 157/44. HEENT: Pallor present, no icterus. NECK: No neck lymph nodes, intubated. HEART: S1, S2. LUNGS: Decreased air entry. ABDOMEN: Soft. NEUROLOGIC: Awake, trying to move extremities. LABORATORY DATA: White cell 6.9, hemoglobin 7.5, MCV 87, platelets 74, platelet was 159 on 06/12 and then fallen down, before that was 200 and 300. On 06/16/2019, the platelet was 111, potassium 3.3, creatinine 0.8, calcium 9.4. RADIOLOGY: Doppler scan negative in upper extremity or lower extremity. ASSESSMENT: 1. Thrombocytopenia. This may be medication related. The patient had received Lovenox, HIT test has been ordered. Doppler is negative. Other medication like antibiotics may also have a role in this pharmacy evaluation of trend of medications will help. 2. Anemia. We will do deficiency investigations. 3. Short of breath, intubated. 4. History of hypertension. 5. Status post cardiac arrest. 6. Renal impairment, acute tubular necrosis at one time, dialysis on hold. 7. Electrolyte imbalance. 8. I will follow the patient during inpatient stay. BROOKE: 06/20/2019 08:10 JOB# [id number] AMILCAR/MICHAEL
[2019-06-20] MEDS: MINOXIDIL 2.5 MG TAB PO SCH (09:17)
[2019-06-20] MEDS: FERROUS SULFATE 308 MG (62mg Elemental Iron) / 7 ML ELIXIR PO SCH (09:17)
[2019-06-20] MEDS: levETIRAcetam 500 MG/5 ML ORAL LIQD PO SCH ×2 (09:18→21:46)
[2019-06-20] MEDS: VALSARTAN 160MG TAB FEEDTUBE SCH (09:18)
[2019-06-20] MEDS: POTASSIUM CHLORIDE 20 MEQ PACKET FEEDTUBE SCH (09:19)
[2019-06-20] MEDS: FAMOTIDINE 20 MG TAB PO SCH ×2 (09:19→21:46)
[2019-06-20] MEDS ORDERED: MAGNESIUM SULFATE 4 GM/100 ML BAG IV ONE (09:30)
[2019-06-20 10:08] LABS: Iron 45 ug/dL (49-181); Total Iron Binding Capacity 110 mcg/dL (250-450)
--- NOTE | 2019-06-20 14:48 | Progress Note ---
Assessment and Plan Assessment and plan: 34-year-old man with morbid obesity was brought to the hospital for shortness of breath and insomnia. He was found to have severe hypoxia and bradycardia who then became pulseless, he was cyanotic and he was intubated after receiving CPR with 2 rounds of epinephrine. Hypertensive emergency off cardene drip since 06/13, optimize BP meds Fever Flu neg, UA neg, cxr no infiltrate, BC in progress ID consult appreciated, monitor off abx Acute respiratory failure with hypoxia and hypercapnia on mechanical ventilator greater than 96 hours -Obesity hypoventilation Patient extubated 06/07 after being on the ventilator for 37 days, now reintubated on 06/16 plan for trache/peg, dw GS Status post cardiac arrest anoxic/ischemic brain injury Patient's mentation is improved ., EEG was negative for seizures and neurology consult appreciated. Severe malnutrition Dysphasia; dw with his mom, she is agreeable to PEG tube, GS consulted -Dietitian input appreciated, continue tube feeds Anemia of chronic disease; transfuse to keep hemoglobin above 7, iron supplements Thrombocytopenia; worsening, question if this is HIT. Will send HIT labs, hold Lovenox, hematology consult appreciated Acute kidney injury due to ATN Dialysis now put on hold, kidney function improving Nephrology input appreciated, tolerating diuretics -PC will be dc by neph on Friday if continues to improve Fluid overload Status post diuretics which were dosed by glass furnace tender. Nephrology does not rec ommend further diuresis at this time. hypernatremia; restart d5w judiciously hypokalemia/hypomagnesemia; replete Morbid obesity; will need weight loss program upon discharge DVT prophylaxis; scd for now Disposition; does not have a pay source for rehab, therefore home with home health services CCT 33 minutes JOHANNA is momWilfred Alexander [phone] History Interval history: No fever No vomiting no seizure-like activity No diarrhea No agitation No obvious discomfort Hospitalist Physical - Physical exam Narrative exam: General.: Morbidly obese HEENT: Moist mucous membranes, extraocular muscles intact, no lymphadenopathy Neck: supple Cardiac: S1-S2 heard Lungs: clear to auscultation bilaterally Abdomen: soft , nontender, nondistended, bowel sounds positive Extremities: edema in all extremities, but improved Skin: no rash or lesions Neurologic: He is awake and alert. He is currently nonverbal. But he nods and shakes his head. He obeys commands, intubated Psych: calm, - Constitutional Vitals: Temp Pulse Resp BP Pulse Ox 99.5 F 94 H 19 91/43 96 06/20/19 12:00 06/20/19 14:08 06/20/19 14:00 06/20/19 14:08 06/20/19 14:00 General appearance: Present: no acute distress Results - Labs CBC & Chem 7: 06/20/19 04:40 06/20/19 04:40 Labs: Laboratory Last Values WBC 10.4 K/mm3 (4.5-11.0) 06/20/19 04:40 RBC 2.79 M/mm3 (3.65-5.03) L 06/20/19 04:40 Hgb 7.9 gm/dl (11.8-15.2) L 06/20/19 04:40 Hct 24.3 % (35.5-45.6) L 06/20/19 04:40 MCV 87 fl (84-94) 06/20/19 04:40 MCH 28 pg (28-32) 06/20/19 04:40 MCHC 33 % (32-34) 06/20/19 04:40 RDW 19.6 % (13.2-15.2) H 06/20/19 04:40 Plt Count 92 K/mm3 (140-440) L 06/20/19 04:40 Lymph % (Auto) 9.2 % (13.4-35.0) L 06/20/19 04:40 Knott % (Auto) 12.0 % (0.0-7.3) H 06/20/19 04:40 Eos % (Auto) 5.2 % (0.0-4.3) H 06/20/19 04:40 Baso % (Auto) 0.3 % (0.0-1.8) 06/20/19 04:40 Lymph # 0.9 K/mm3 (1.2-5.4) L 06/20/19 04:40 Knott # 1.2 K/mm3 (0.0-0.8) H 06/20/19 04:40 Eos # 0.5 K/mm3 (0.0-0.4) H 06/20/19 04:40 Baso # 0.0 K/mm3 (0.0-0.1) 06/20/19 04:40 Add Manual Diff Complete 06/16/19 05:00 Total Counted 100 06/16/19 05:00 Seg Neutrophils % 73.3 % (40.0-70.0) H 06/20/19 04:40 Seg Neuts % (Manual) 92.0 % (40.0-70.0) H 06/16/19 05:00 Band Neutrophils % 0 % 06/16/19 05:00 Lymphocytes % (Manual) 2.0 % (13.4-35.0) L 06/16/19 05:00 Reactive Lymphs % (Man) 0 % 06/16/19 05:00 Monocytes % (Manual) 6.0 % (0.0-7.3) 06/16/19 05:00 Eosinophils % (Manual) 0 % (0.0-4.3) 06/16/19 05:00 Basophils % (Manual) 0 % (0.0-1.8) 06/16/19 05:00 Metamyelocytes % 0 % 06/16/19 05:00 Myelocytes % 0 % 06/16/19 05:00 Promyelocytes % 0 % 06/16/19 05:00 Blast Cells % 0 % 06/16/19 05:00 Nucleated RBC % Not Reportable 06/16/19 05:00 Seg Neutrophils # 7.6 K/mm3 (1.8-7.7) 06/20/19 04:40 Seg Neutrophils # Man 10.9 K/mm3 (1.8-7.7) H 06/16/19 05:00 Band Neutrophils # 0.0 K/mm3 06/16/19 05:00 Lymphocytes # (Manual) 0.2 K/mm3 (1.2-5.4) L 06/16/19 05:00 Abs React Lymphs (Man) 0.0 K/mm3 06/16/19 05:00 Monocytes # (Manual) 0.7 K/mm3 (0.0-0.8) 06/16/19 05:00 Eosinophils # (Manual) 0.0 K/mm3 (0.0-0.4) 06/16/19 05:00 Basophils # (Manual) 0.0 K/mm3 (0.0-0.1) 06/16/19 05:00 Metamyelocytes # 0.0 K/mm3 06/16/19 05:00 Myelocytes # 0.0 K/mm3 06/16/19 05:00 Promyelocytes # 0.0 K/mm3 06/16/19 05:00 Blast Cells # 0.0 K/mm3 06/16/19 05:00 WBC Morphology Not Reportable 06/16/19 05:00 Hypersegmented Neuts Not Reportable 06/16/19 05:00 Hyposegmented Neuts Not Reportable 06/16/19 05:00 Hypogranular Neuts Not Reportable 06/16/19 05:00 Smudge Cells Not Reportable 06/16/19 05:00 Toxic Granulation Not Reportable 06/16/19 05:00 Toxic Vacuolation Not Reportable 06/16/19 05:00 Dohle Bodies Not Reportable 06/16/19 05:00 Pelger-Huet Anomaly Not Reportable 06/16/19 05:00 Renea Rods Not Reportable 06/16/19 05:00 Platelet Estimate Consistent w auto 06/16/19 05:00 Clumped Platelets Not Reportable 06/16/19 05:00 Plt Clumps, EDTA Not Reportable 06/16/19 05:00 Large Platelets Not Reportable 06/16/19 05:00 Giant Platelets Not Reportable 06/16/19 05:00 Platelet Satelliting Not Reportable 06/16/19 05:00 Plt Morphology Comment Not Reportable 06/16/19 05:00 RBC Morphology Not Reportable 06/16/19 05:00 Dimorphic RBCs Not Reportable 06/16/19 05:00 Polychromasia Not Reportable 06/16/19 05:00 Hypochromasia Not Reportable 06/16/19 05:00 Poikilocytosis Not Reportable 06/16/19 05:00 Anisocytosis Not Reportable 06/16/19 05:00 Microcytosis Not Reportable 06/16/19 05:00 Macrocytosis Not Reportable 06/16/19 05:00 Spherocytes Not Reportable 06/16/19 05:00 Pappenheimer Bodies Not Reportable 06/16/19 05:00 Sickle Cells Not Reportable 06/16/19 05:00 Target Cells Not Reportable 06/16/19 05:00 Tear Drop Cells Not Reportable 06/16/19 05:00 Ovalocytes Not Reportable 06/16/19 05:00 Stomatocytes Few 06/16/19 05:00 Helmet Cells Not Reportable 06/16/19 05:[address] [place] Bodies Not Reportable 06/16/19 05:00 [place] Rings Not Reportable 06/16/19 05:00 [place] Cells Not Reportable 06/16/19 05:00 Bite Cells Not Reportable 06/16/19 05:00 Crenated Cell Not Reportable 06/16/19 05:00 Elliptocytes Not Reportable 06/16/19 05:00 Acanthocytes (Spur) Not Reportable 06/16/19 05:00 Rouleaux Not Reportable 06/16/19 05:00 Hemoglobin C Crystals Not Reportable 06/16/19 05:00 Schistocytes Not Reportable 06/16/19 05:00 Malaria parasites Not Reportable 06/16/19 05:00 Syed Bodies Not Reportable 06/16/19 05:00 Hem Pathologist Commnt No 06/16/19 05:00 PT 15.4 Sec. (12.2-14.9) H 05/01/19 Unknown INR 1.23 (0.87-1.13) H 05/01/19 Unknown APTT 22.7 Sec. (24.2-36.6) L 05/01/19 Unknown Fibrinogen 194 mg/dl (211-480) L 06/17/19 12:45 POC ABG pH 7.462 (7.35-7.45) H 06/05/19 03:52 ABG pH 7.455 pH Units (7.350-7.450) H 06/20/19 05:40 POC ABG pCO2 39.8 (35-45) 06/05/19 03:52 ABG pCO2 44.1 mm Hg 06/20/19 05:40 POC ABG pO2 86 (80-105) 06/05/19 03:52 ABG pO2 60.9 mm Hg (80.0-90.0) L 06/20/19 05:40 POC ABG HCO3 28.4 (22-26 mml/L) 06/05/19 03:52 ABG HCO3 30.3 mmol/L (20.0-26.0) H 06/20/19 05:40 POC ABG Total CO2 30 (23-27mmol/L) 06/05/19 03:52 POC ABG O2 Sat 97 06/05/19 03:52 ABG O2 Saturation 92.3 % (95.0-99.0) L 06/20/19 05:40 ABG O2 Content 10.5 (0.0-44) 06/20/19 05:40 POC ABG Base Excess 5 ((-2) - (+3)mmol/L) 06/05/19 03:52 ABG Base Excess 5.8 mmol/L (-2.0-3.0) H 06/20/19 05:40 ABG Hemoglobin 8.2 gm/dl (14.0-18.0) L 06/20/19 05:40 ABG Carboxyhemoglobin 1.9 % (0.0-5.0) 06/20/19 05:40 ABG Methemoglobin 0.5 % (0.0-1.5) 06/20/19 05:40 Oxyhemoglobin 90.1 % (95.0-99.0) L 06/20/19 05:40 FiO2 25 % 06/20/19 05:40 Sodium 143 mmol/L (137-145) 06/20/19 04:40 Potassium 3.5 mmol/L (3.6-5.0) L 06/20/19 04:40 Chloride 101.2 mmol/L (98-107) 06/20/19 04:40 Carbon Dioxide 27 mmol/L (22-30) 06/20/19 04:40 Anion Gap 18 mmol/L 06/20/19 04:40 BUN 59 mg/dL (9-20) H 06/20/19 04:40 Creatinine 1.3 mg/dL (0.8-1.5) D 06/20/19 04:40 Estimated GFR > 60 ml/min 06/20/19 04:40 BUN/Creatinine Ratio 45 % 06/20/19 04:40 Glucose 200 mg/dL (75-100) H 06/20/19 04:40 POC Glucose 225 (70-105) H 06/20/19 12:24 Osmolality 327 Mosm/kg 05/07/19 13:45 Uric Acid 18.0 mg/dL (3.5-7.6) H 05/07/19 13:45 Calcium 9.3 mg/dL (8.4-10.2) 06/20/19 04:40 Phosphorus 3.70 mg/dL (2.5-4.5) 06/10/19 05:45 Magnesium 1.60 mg/dL (1.7-2.3) L 06/20/19 04:40 Iron 45 ug/dL (49-181) L 06/20/19 09:12 TIBC 110 mcg/dL (250-450) L 06/20/19 09:12 Ferritin 315.2 ng/mL (13.0-400.0) 06/20/19 09:12 Total Bilirubin 0.50 mg/dL (0.1-1.2) 06/08/19 04:20 AST 23 units/L (5-40) 06/08/19 04:20 ALT 66 units/L (7-56) H 06/08/19 04:20 Alkaline Phosphatase 59 units/L (35-129) 06/08/19 04:20 Total Creatine Kinase 131 units/L (55-170) 05/02/19 04:41 CK-MB (CK-2) 5.2 ng/mL (0.0-4.0) H 05/02/19 04:41 CK-MB (CK-2) Rel Index 3.9 (0-4) 05/02/19 04:41 Troponin T 0.067 ng/mL (0.00-0.029) H D 05/02/19 04:41 NT-Pro-B Natriuret Pep 6831 pg/mL (0-450) H 05/01/19 Unknown Total Protein 5.5 g/dL (6.3-8.2) L 06/08/19 04:20 Albumin 2.9 g/dL (3.9-5) L 06/08/19 04:20 Albumin/Globulin Ratio 1.1 % 06/08/19 04:20 Triglycerides 210 mg/dL (2-149) H 06/19/19 04:30 Cholesterol 173 mg/dL (50-199) 05/02/19 00:06 LDL Cholesterol Direct 126 mg/dL (50-130) 05/02/19 00:06 HDL Cholesterol 18 mg/dL (40-59) L 05/02/19 00:06 Cholesterol/HDL Ratio 9.61 % 05/02/19 00:06 Vitamin B12 353.0 pg/mL (211-911) 06/20/19 09:12 Folate 7.01 ng/mL (7.3-26.0) L 06/20/19 09:12 Procalcitonin 0.05 ng/mL (<0.15) 06/17/19 12:45 Urine Color Yellow (Yellow) 06/17/19 12:45 Urine Turbidity Slightly-cloudy (Clear) 06/17/19 12:45 Urine pH 5.0 (5.0-7.0) 06/17/19 12:45 Ur Specific [place] 1.013 (1.003-1.030) 06/17/19 12:45 Urine Protein <15 mg/dl mg/dL (Negative) 06/17/19 12:45 Urine Glucose (UA) Neg mg/dL (Negative) 06/17/19 12:45 Urine Ketones Neg mg/dL (Negative) 06/17/19 12:45 Urine Blood Sm (Negative) 06/17/19 12:45 Urine Nitrite Neg (Negative) 06/17/19 12:45 Urine Bilirubin Neg (Negative) 06/17/19 12:45 Urine Urobilinogen < 2.0 mg/dL (<2.0) 06/17/19 12:45 Ur Leukocyte Esterase Neg (Negative) 06/17/19 12:45 Urine WBC (Auto) 2.0 /HPF (0.0-6.0) 06/17/19 12:45 Urine RBC (Auto) 2.0 /HPF (0.0-6.0) 06/17/19 12:45 U Epithel Cells (Auto) < 1.0 /HPF (0-13.0) 06/17/19 12:45 Urine Bacteria (Auto) 1+ /HPF (Negative) 05/20/19 12:00 Uric Acid Crystals 3+ 05/03/19 10:55 Urine Mucus Few /HPF 06/17/19 12:45 Urine Yeast (Budding) 3+ /HPF 05/20/19 12:00 Urine Creatinine 292.8 mg/dL (0.1-20.0) H 05/07/19 22:40 Urine Sodium 11 mmol/L 05/07/19 22:40 Urine Total Protein 269 mg/dL (5-11.8) H 05/07/19 22:40 Vancomycin Trough 20.5 ug/mL (5.0-20.0) H 05/15/19 09:00 Random Vancomycin 11.5 ug/mL (0-40.0) 05/27/19 06:00 AMNA Screen Negative (Negative) 05/07/19 13:45 Hepatitis A IgM Ab Non-reactive (NonReactive) 05/07/19 13:45 Hep Bs Antigen Non-reactive (Negative) 05/07/19 13:45 Hep B Core IgM Ab Non-reactive (NonReactive) 05/07/19 13:45 Hepatitis C Antibody Non-reactive (NonReactive) 05/07/19 13:45 Influenza A (Rapid) Negative (Negative) 06/17/19 11:35 Influenza B (Rapid) Negative (Negative) 06/17/19 11:35 Active Medications - Current Medications Current Medications: Generic Name Dose Route Start Last Admin Trade Name Freq PRN Reason Stop Dose Admin Acetaminophen 650 mg 06/17/19 10:00 06/17/19 21:20 Tylenol PO 650 mg Q6H PRN Administration FOR TEMP >/=100.4 Lipase/Protease/Amylase 1 each 05/14/19 15:[address] 10,500 Unit FEEDTUBE PRN PRN For Clogged Feeding Tube Dextrose 50 gm 05/01/19 20:24 D50w (25gm) Vial IV Q30MIN PRN Hypoglycemia Protocol Famotidine 20 mg 06/17/19 10:00 06/20/19 09:19 Pepcid PO 20 mg BID VICKEY Administration Ferrous Sulfate 308 mg 06/18/19 12:00 06/20/19 09:17 Ferrous Sulfate PO 308 mg QDAY VICKEY Administration Hydrophilic Ointment 1 applic 06/16/19 17:34 Vaseline Lip Therapy TP Q2HR PRN Dry Lips Propofol 1,000 mg in 100 mls @ 7.716 mls/hr 06/16/19 21:00 06/20/19 10:51 Diprivan 10 Mg/Ml IV 10 mcg/kg/min TITR VICKEY 15.432 mls/hr Administration Protocol 5 MCG/KG/MIN Cefepime HCl 2 gm in 100 mls @ 200 mls/hr 06/17/19 14:00 06/20/19 14:12 Cefepime/Ns 2 Gm/100 Ml IV 200 mls/hr Q8HR VICKEY Administration Protocol Fentanyl Citrate 2,000 mcg in 100 mls @ 12.86 mls/hr 06/17/19 14:00 Fentanyl Drip Premix IV TITR [facility] Protocol 1 MCG/KG/HR Dextrose 1,000 mls @ 100 mls/hr 06/18/19 11:00 06/20/19 03:19 D5w IV 100 mls/hr DIRECT VICKEY Administration Insulin Glargine 20 units 06/20/19 22:00 Lantus SUB-Q QHS VICKEY Insulin Human Lispro 0 unit 06/01/19 14:00 06/20/19 12:55 Humalog SUB-Q 4 unit Q6HR [facility] Administration Protocol Labetalol HCl 10 mg 06/11/19 22:48 06/19/19 10:23 Labetalol IV 10 mg Q4H PRN Administration BP >170/105; hold for HR <60 Labetalol HCl 200 mg 06/13/19 11:36 06/20/19 14:08 Labetalol PO Not Given Q8HR [facility] Levetiracetam 750 mg 06/16/19 10:00 06/20/19 09:18 Keppra PO 750 mg BID [facility] Administration Methylprednisolone Sodium Succinate 20 mg 06/14/19 18:00 06/20/19 09:22 Solu-Medrol IV 20 mg Q8H [facility] Administration Minoxidil 2.5 mg 06/06/19 22:00 06/20/19 09:17 Loniten PO 2.5 mg BID [facility] Administration Multi-Ingred Cream/Lotion/Oil/Oint 1 applic 06/16/19 18:00 Artificial Tears Ophth Oint OU Q4HR PRN Dry Eye(s) Potassium Chloride 40 meq 06/19/19 10:00 06/20/19 09:19 Potassium Chloride FEEDTUBE 40 meq QDAY VICKEY Administration Simple Syrup 15 ml 05/14/19 15:01 Simple Syrup FEEDTUBE PRN PRN Hypoglycemia Simple Syrup 30 ml 05/14/19 15:01 Simple Syrup FEEDTUBE PRN PRN Hypoglycemia Sodium Bicarbonate 325 mg 05/14/19 15:01 Sodium Bicarbonate FEEDTUBE PRN PRN For Clogged Feeding Tube Valsartan 80 mg 06/20/19 16:00 Diovan FEEDTUBE BID [facility] Nutrition/Malnutrition Assess - Dietary Evaluation Nutrition/Malnutrition Findings: Nutrition Notes Start: 05/04/19 12:54 Freq: Status: Active Protocol: Document 06/16/19 12:24 CW (Rec: 06/16/19 12:34 CW [id number]) Co-Sign 06/16/19 12:24 LP Nutrition Notes Initial or Follow up Reassessment Current Diagnosis Acute Kidney Injury,Sepsis, Respiratory Failure Other Pertinent Diagnosis HD Current Diet Nepro 1.8 at 50 ml/hr Labs/Tests BUN 49 BG 264 Cr 0.7 Pertinent Medications Humalog Solumedrol Height 6 ft 4 in Weight 257.2 kg [place] Body Weight (kg) 91.81 BMI 69.0 Weight change and time frame No wt change noted Weight Status Morbidly Obese Subjective/Other Information F/U for diet advancement. Pt. failed swallow test per [employer]. PO not recommended. TF restarted and is being tolerated Percent of energy/protein needs met: 100%/43% Burn Absent Trauma Absent GI Symptoms None Current % PO Negligible Minimum of two criteria No physical signs of malnutrition #1 Nutrition Diagnosis Inadequate oral intake Diagnosis Progress(for reassessment Continues documentation) Is patient on ventilator? No Is Patient Ambulatory and/or Out of Bed No REE-([facility]-confined to bed) 4342.284 Kcal/Kg value to use for calculation 8 Approximate Energy Requirements Using 8 kcal/Kg Calculation Used for Recommendations Kcal/kg Additional Notes PRO needs: 73 - 91 g (0.8 - 1 g/kg IBW) Fluid needs: 1 ml/kcal Nutrition Intervention Change Diet Order: Continue TF Nutrition Support: Nepro 1.8 at 50 ml/hr Flush with 250ml q4h Kcal 2,160 Protein (gm) 97 Fluid (mL) 872 Goal #1 TF tolerance [ End ] Goal #2 Meet at least 75% kcal/PRO needs via TF Anticipated Discharge Needs: Unable to determine at this time Follow-Up By: 06/23/19 Additional Comments F/U TF tolerance
--- NOTE | 2019-06-20 15:53 | Progress Note ---
Assessment and Plan Assessment: * Acute kidney injury attributed to vancomycin toxicity - recovered, previously on hemodialysis * Hypernatremia * Acute hypoxic/hypercapneic respiratory failure * Hypertension * Hypokalemia * Morbid obesity Plan: * Renal function has recovered. No indication for hemodialysis * Continue D5W. Diuretics on hold * Will arrange removal of permcath upcoming week * Vent management per pulmonary medicine - note plans for trach/PEG * Will stop Minoxidil - MAP in 50s at time of visit * Dose medications for renal function * Avoid nephrotoxins Subjective Date of service: 06/20/19 Principal diagnosis: HF; acute hypoxemic resp failure, SIRS, CARLA Interval history: No acute events overnight. Objective - Vital Signs Vital signs: Vital Signs - 12hr 06/20/19 06/20/19 06/20/19 04:00 04:15 04:30 Temperature Pulse Rate 88 89 89 Pulse Rate [ 84 From Monitor] Respiratory 21 21 22 Rate Blood Pressure 104/37 111/36 97/41 O2 Sat by Pulse 98 98 96 Oximetry 06/20/19 06/20/19 06/20/19 04:45 05:00 05:15 Temperature Pulse Rate 89 88 93 H Pulse Rate [ From Monitor] Respiratory 22 25 H 24 Rate Blood Pressure 94/46 110/39 100/35 O2 Sat by Pulse 92 96 91 Oximetry 06/20/19 06/20/19 06/20/19 05:30 05:33 05:45 Temperature Pulse Rate 91 H 92 H 90 Pulse Rate [ From Monitor] Respiratory 13 22 Rate Blood Pressure 109/36 109/36 124/36 O2 Sat by Pulse 93 94 94 Oximetry 06/20/19 06/20/19 06/20/19 05:55 06:00 06:15 Temperature Pulse Rate 91 H 91 H 88 Pulse Rate [ From Monitor] Respiratory 16 22 Rate Blood Pressure 124/36 125/37 111/37 O2 Sat by Pulse 95 97 Oximetry 06/20/19 06/20/19 06/20/19 06:30 06:45 07:00 Temperature Pulse Rate 91 H 91 H 92 H Pulse Rate [ From Monitor] Respiratory 17 19 18 Rate Blood Pressure 106/34 100/42 117/40 O2 Sat by Pulse 99 100 100 Oximetry 06/20/19 06/20/19 06/20/19 07:16 07:30 07:45 Temperature Pulse Rate 91 H 90 83 Pulse Rate [ From Monitor] Respiratory 13 19 17 Rate Blood Pressure 135/54 135/48 128/50 O2 Sat by Pulse 100 100 100 Oximetry 06/20/19 06/20/19 06/20/19 07:54 08:00 08:15 Temperature 98.7 F Pulse Rate 88 89 88 Pulse Rate [ 75 From Monitor] Respiratory 19 19 Rate Blood Pressure 128/50 117/39 111/32 O2 Sat by Pulse 99 99 99 Oximetry 06/20/19 06/20/19 06/20/19 08:30 08:46 09:00 Temperature Pulse Rate 90 94 H 95 H Pulse Rate [ From Monitor] Respiratory 20 21 21 Rate Blood Pressure 106/36 134/50 159/51 O2 Sat by Pulse 97 100 99 Oximetry 06/20/19 06/20/19 06/20/19 09:15 09:18 09:30 Temperature Pulse Rate 92 H 92 H 92 H Pulse Rate [ From Monitor] Respiratory 20 19 Rate Blood Pressure 157/44 157/44 118/38 O2 Sat by Pulse 100 100 Oximetry 06/20/19 06/20/19 06/20/19 09:46 10:00 10:16 Temperature Pulse Rate 88 92 H 93 H Pulse Rate [ From Monitor] Respiratory 16 19 16 Rate Blood Pressure 175/48 172/58 112/40 O2 Sat by Pulse 100 99 97 Oximetry 06/20/19 06/20/19 06/20/19 10:30 10:46 11:00 Temperature Pulse Rate 91 H 94 H 90 Pulse Rate [ From Monitor] Respiratory 18 21 22 Rate Blood Pressure 115/34 122/44 122/44 O2 Sat by Pulse 98 98 94 Oximetry 06/20/19 06/20/19 06/20/19 11:15 11:30 11:45 Temperature Pulse Rate 92 H 90 93 H Pulse Rate [ From Monitor] Respiratory 22 18 22 Rate Blood Pressure 100/19 105/25 105/26 O2 Sat by Pulse 95 96 94 Oximetry 06/20/19 06/20/19 06/20/19 12:00 12:15 12:30 Temperature 99.5 F Pulse Rate 86 89 86 Pulse Rate [ 91 H From Monitor] Respiratory 18 22 18 Rate Blood Pressure 141/51 96/24 83/20 O2 Sat by Pulse 98 95 93 Oximetry 06/20/19 06/20/19 06/20/19 12:45 13:00 13:15 Temperature Pulse Rate 91 H 90 88 Pulse Rate [ From Monitor] Respiratory 22 21 19 Rate Blood Pressure 97/36 100/34 94/35 O2 Sat by Pulse 93 94 95 Oximetry 06/20/19 06/20/19 06/20/19 13:30 13:45 14:00 Temperature Pulse Rate 89 93 H 95 H Pulse Rate [ From Monitor] Respiratory 20 22 19 Rate Blood Pressure 87/34 95/38 91/43 O2 Sat by Pulse 96 95 96 Oximetry 06/20/19 14:08 Temperature Pulse Rate 94 H Pulse Rate [ From Monitor] Respiratory Rate Blood Pressure 91/43 O2 Sat by Pulse Oximetry - General Appearance General appearance: obese, intubated EENT: ATNC, other (ETT in place) Respiratory: Present: Decreased Breath Sounds Cardiology: regular, S1S2 Gastrointestinal: obese Musculoskeletal: other (Trace edema) - Lab 06/20/19 04:40 06/20/19 04:40 Most recent lab results ABG pH 7.455 pH Units (7.350-7.450) H 06/20/19 05:40 ABG pCO2 44.1 mm Hg 06/20/19 05:40 ABG pO2 60.9 mm Hg (80.0-90.0) L 06/20/19 05:40 ABG HCO3 30.3 mmol/L (20.0-26.0) H 06/20/19 05:40 ABG O2 Saturation 92.3 % (95.0-99.0) L 06/20/19 05:40 Calcium 9.3 mg/dL (8.4-10.2) 06/20/19 04:40 Phosphorus 3.70 mg/dL (2.5-4.5) 06/10/19 05:45 Magnesium 1.60 mg/dL (1.7-2.3) L 06/20/19 04:40 Urine Creatinine 292.8 mg/dL (0.1-20.0) H 05/07/19 22:40 Urine Sodium 11 mmol/L 05/07/19 22:40 Urine Total Protein 269 mg/dL (5-11.8) H 05/07/19 22:40 Medications & Allergies - Medications Allergies/Adverse Reactions: Allergies No Known Allergies Allergy (Verified 05/01/19 20:27) Home Medications: Home Medications Medication Instructions Recorded Confirmed Last Taken Type No Known Home Medications [No 05/03/19 05/03/19 Unknown History Reported Home Medications] Active Medications: Generic Name Dose Route Start Last Admin Trade Name Freq PRN Reason Stop Dose Admin Acetaminophen 650 mg 06/17/19 10:00 06/17/19 21:20 Tylenol PO 650 mg Q6H PRN Administration FOR TEMP >/=100.4 Lipase/Protease/Amylase 1 each 05/14/19 15:01 Pancreaztanvir [place] 10,500 Unit FEEDTUBE PRN PRN For Clogged Feeding Tube Dextrose 50 gm 05/01/19 20:24 D50w (25gm) Vial IV Q30MIN PRN Hypoglycemia Protocol Famotidine 20 mg 06/17/19 10:00 06/20/19 09:19 Pepcid PO 20 mg BID VICKEY Administration Ferrous Sulfate 308 mg 06/18/19 12:00 06/20/19 09:17 Ferrous Sulfate PO 308 mg QDAY VICKEY Administration Hydrophilic Ointment 1 applic 06/16/19 17:34 Vaseline Lip Therapy TP Q2HR PRN Dry Lips Propofol 1,000 mg in 100 mls @ 7.716 mls/hr 06/16/19 21:00 06/20/19 10:51 Diprivan 10 Mg/Ml IV 10 mcg/kg/min TITR [facility]ICKEY 15.432 mls/hr Administration Protocol 5 MCG/KG/MIN Cefepime HCl 2 gm in 100 mls @ 200 mls/hr 06/17/19 14:00 06/20/19 14:12 Cefepime/Ns 2 Gm/100 Ml IV 200 mls/hr Q8HR [facility]ICKEY Administration Protocol Fentanyl Citrate 2,000 mcg in 100 mls @ 12.86 mls/hr 06/17/19 14:00 Fentanyl Drip Premix IV TITR VICKEY Protocol 1 MCG/KG/HR Dextrose 1,000 mls @ 100 mls/hr 06/18/19 11:00 06/20/19 15:49 D5w IV 100 mls/hr DIRECT [facility]ICKEY Administration Insulin Glargine 20 units 06/20/19 22:00 Lantus SUB-Q QHS VICKEY Insulin Human Lispro 0 unit 06/01/19 14:00 06/20/19 12:55 Humalog SUB-Q 4 unit Q6HR VICKEY Administration Protocol Labetalol HCl 10 mg 06/11/19 22:48 06/19/19 10:23 Labetalol IV 10 mg Q4H PRN Administration BP >170/105; hold for HR <60 Labetalol HCl 200 mg 06/13/19 11:36 06/20/19 14:08 Labetalol PO Not Given Q8HR VICKEY Levetiracetam 750 mg 06/16/19 10:00 06/20/19 09:18 Keppra PO 750 mg BID VICKEY Administration Methylprednisolone Sodium Succinate 20 mg 06/14/19 18:00 06/20/19 09:22 Solu-Medrol IV 20 mg Q8H VICKEY Administration Minoxidil 2.5 mg 06/06/19 22:00 06/20/19 09:17 Loniten PO 2.5 mg BID VICKEY Administration Multi-Ingred Cream/Lotion/Oil/Oint 1 applic 06/16/19 18:00 Artificial Tears Ophth Oint OU Q4HR PRN Dry Eye(s) Potassium Chloride 40 meq 06/19/19 10:00 06/20/19 09:19 Potassium Chloride FEEDTUBE 40 meq QDAY VICKEY Administration Simple Syrup 15 ml 05/14/19 15:01 Simple Syrup FEEDTUBE PRN PRN Hypoglycemia Simple Syrup 30 ml 05/14/19 15:01 Simple Syrup FEEDTUBE PRN PRN Hypoglycemia Sodium Bicarbonate 325 mg 05/14/19 15:01 Sodium Bicarbonate FEEDTUBE PRN PRN For Clogged Feeding Tube Valsartan 80 mg 06/20/19 16:00 Diovan FEEDTUBE BID [facility]
[2019-06-20] MEDS ORDERED: VALSARTAN 40 MG TAB FEEDTUBE SCH (16:00)
--- NOTE | 2019-06-20 19:44 | Progress Note ---
Assessment and Plan Labs reviewed Imp: 1. Acute respiratory failure, hypoxia 2. A/C respiratory failure, hypercapnea 3. LANDON/OHS/Morbid obesity 4. CARLA 5. Pulm HTN 6. Sepsis -> ? Pneumonia, ? Meningitis 7. Seizures 8. SIRS 9. Thrombocytopenia 10. Hypernatremia Rec: 1. Propofol/Fentanyl as needed to keep him lightly sedated 2. Consulted surgery for trach/PEG as he cannot protect his airway; trach should be permanent and ultimately left uncapped at night to treat probable LANDON 3. Control BP with PO meds; hold diuretics; agree with gentle D5W and monitor sodium; K repleted 4. Cont. TFs 5. Cultures negative; d/c all ABX; remove permcath when able 6. F/u HIT; hold Lovenox for now; SCDs are in place 7. Prognosis remains guarded to poor 8. Complex decision-making No family present Subjective Date of service: 06/20/19 Principal diagnosis: HF; acute hypoxemic resp failure, SIRS, CARLA Interval history: No events. PEEP down to 6. Sedated on Propofol 5mcg. Active Medications Acetaminophen (Tylenol) 650 mg PO Q6H PRN PRN Reason: FOR TEMP >/=100.4 Last Admin: 06/17/19 21:20 Dose: 650 mg Documented by: Lipase/Protease/Amylase (German Fletcher 10,500 Unit) 1 each FEEDTUBE PRN PRN PRN Reason: For Clogged Feeding Tube Dextrose (D50w (25gm) Vial) 50 gm IV Q30MIN PRN; Protocol PRN Reason: Hypoglycemia Famotidine (Pepcid) 20 mg PO BID [facility] Last Admin: 06/20/19 09:19 Dose: 20 mg Documented by: Ferrous Sulfate (Ferrous Sulfate) 308 mg PO QDAY [facility] Last Admin: 06/20/19 09:17 Dose: 308 mg Documented by: Hydrophilic Ointment (Vaseline Lip Therapy) 1 applic TP Q2HR PRN PRN Reason: Dry Lips Propofol (Diprivan 10 Mg/Ml) 1,000 mg in 100 mls @ 7.716 mls/hr IV TITR [facility]; Protocol Last Admin: 06/20/19 10:51 Dose: 10 mcg/kg/min, 15.432 mls/hr Documented by: Cefepime HCl (Cefepime/Ns 2 Gm/100 Ml) 2 gm in 100 mls @ 200 mls/hr IV Q8HR [facility]; Protocol Last Admin: 06/20/19 14:12 Dose: 200 mls/hr Documented by: Fentanyl Citrate (Fentanyl Drip Premix) 2,000 mcg in 100 mls @ 12.86 mls/hr IV TITR [facility]; Protocol Dextrose (D5w) 1,000 mls @ 100 mls/hr IV DIRECT [facility] Last Admin: 06/20/19 15:49 Dose: 100 mls/hr Documented by: Insulin Glargine (Lantus) 20 units SUB-Q QHS [facility] Insulin Human Lispro (Humalog) 0 unit SUB-Q Q6HR [facility]; Protocol Last Admin: 06/20/19 19:06 Dose: 6 unit Documented by: Labetalol HCl (Labetalol) 10 mg IV Q4H PRN PRN Reason: BP >170/105; hold for HR <60 Last Admin: 06/19/19 10:23 Dose: 10 mg Documented by: Labetalol HCl (Labetalol) 200 mg PO Q8HR [facility] Last Admin: 06/20/19 14:08 Dose: Not Given Documented by: Levetiracetam (Keppra) 750 mg PO BID [facility] Last Admin: 06/20/19 09:18 Dose: 750 mg Documented by: Methylprednisolone Sodium Succinate (Solu-Medrol) 20 mg IV Q8H [facility] Last Admin: 06/20/19 17:07 Dose: 20 mg Documented by: Multi-Ingred Cream/Lotion/Oil/Oint (Artificial Tears Ophth Oint) 1 applic OU Q4HR PRN PRN Reason: Dry Eye(s) Potassium Chloride (Potassium Chloride) 40 meq FEEDTUBE QDAY [facility] Last Admin: 06/20/19 09:19 Dose: 40 meq Documented by: Simple Syrup (Simple Syrup) 15 ml FEEDTUBE PRN PRN PRN Reason: Hypoglycemia Simple Syrup (Simple Syrup) 30 ml FEEDTUBE PRN PRN PRN Reason: Hypoglycemia Sodium Bicarbonate (Sodium Bicarbonate) 325 mg FEEDTUBE PRN PRN PRN Reason: For Clogged Feeding Tube Valsartan (Diovan) 80 mg FEEDTUBE BID [facility] Last Admin: 06/20/19 16:40 Dose: Not Given Documented by: Objective Vital Signs - 12hr 06/20/19 06/20/19 06/20/19 07:45 07:54 08:00 Temperature 98.7 F Pulse Rate 83 88 89 Pulse Rate [ 75 From Monitor] Respiratory 17 19 Rate Blood Pressure 128/50 128/50 117/39 O2 Sat by Pulse 100 99 99 Oximetry 06/20/19 06/20/19 06/20/19 08:15 08:30 08:46 Temperature Pulse Rate 88 90 94 H Pulse Rate [ From Monitor] Respiratory 19 20 21 Rate Blood Pressure 111/32 106/36 134/50 O2 Sat by Pulse 99 97 100 Oximetry 06/20/19 06/20/19 06/20/19 09:00 09:15 09:18 Temperature Pulse Rate 95 H 92 H 92 H Pulse Rate [ From Monitor] Respiratory 21 20 Rate Blood Pressure 159/51 157/44 157/44 O2 Sat by Pulse 99 100 Oximetry 06/20/19 06/20/19 06/20/19 09:30 09:46 10:00 Temperature Pulse Rate 92 H 88 92 H Pulse Rate [ From Monitor] Respiratory 19 16 19 Rate Blood Pressure 118/38 175/48 172/58 O2 Sat by Pulse 100 100 99 Oximetry 06/20/19 06/20/19 06/20/19 10:16 10:30 10:46 Temperature Pulse Rate 93 H 91 H 94 H Pulse Rate [ From Monitor] Respiratory 16 18 21 Rate Blood Pressure 112/40 115/34 122/44 O2 Sat by Pulse 97 98 98 Oximetry 06/20/19 06/20/19 06/20/19 11:00 11:15 11:30 Temperature Pulse Rate 90 92 H 90 Pulse Rate [ From Monitor] Respiratory 22 22 18 Rate Blood Pressure 122/44 100/19 105/25 O2 Sat by Pulse 94 95 96 Oximetry 06/20/19 06/20/19 06/20/19 11:45 12:00 12:15 Temperature 99.5 F Pulse Rate 93 H 86 89 Pulse Rate [ 91 H From Monitor] Respiratory 22 18 22 Rate Blood Pressure 105/26 141/51 96/24 O2 Sat by Pulse 94 98 95 Oximetry 06/20/19 06/20/19 06/20/19 12:30 12:45 13:00 Temperature Pulse Rate 86 91 H 90 Pulse Rate [ From Monitor] Respiratory 18 22 21 Rate Blood Pressure 83/20 97/36 100/34 O2 Sat by Pulse 93 93 94 Oximetry 06/20/19 06/20/19 06/20/19 13:15 13:30 13:45 Temperature Pulse Rate 88 89 93 H Pulse Rate [ From Monitor] Respiratory 19 20 22 Rate Blood Pressure 94/35 87/34 95/38 O2 Sat by Pulse 95 96 95 Oximetry 06/20/19 06/20/19 06/20/19 14:00 14:08 14:15 Temperature Pulse Rate 95 H 94 H 90 Pulse Rate [ From Monitor] Respiratory 19 24 Rate Blood Pressure 91/43 91/43 86/36 O2 Sat by Pulse 96 96 Oximetry 06/20/19 06/20/19 06/20/19 14:30 14:45 15:00 Temperature Pulse Rate 92 H 93 H 89 Pulse Rate [ From Monitor] Respiratory 23 22 22 Rate Blood Pressure 98/34 93/33 86/30 O2 Sat by Pulse 98 95 95 Oximetry 06/20/19 06/20/19 06/20/19 15:15 15:30 15:45 Temperature Pulse Rate 90 94 H 94 H Pulse Rate [ From Monitor] Respiratory 23 22 22 Rate Blood Pressure 100/35 111/48 99/40 O2 Sat by Pulse 95 96 98 Oximetry 06/20/19 06/20/19 06/20/19 16:00 16:15 16:30 Temperature 99.4 F Pulse Rate 91 H 93 H 94 H Pulse Rate [ 94 H From Monitor] Respiratory 20 22 21 Rate Blood Pressure 99/37 92/34 102/35 O2 Sat by Pulse 96 97 98 Oximetry 06/20/19 06/20/19 06/20/19 16:40 16:46 17:00 Temperature Pulse Rate 94 H 94 H 93 H Pulse Rate [ From Monitor] Respiratory 20 20 Rate Blood Pressure 102/35 97/34 89/32 O2 Sat by Pulse 98 97 Oximetry 06/20/19 06/20/19 06/20/19 17:15 17:30 17:45 Temperature Pulse Rate 93 H 94 H 94 H Pulse Rate [ From Monitor] Respiratory 22 21 25 H Rate Blood Pressure 104/32 105/36 98/31 O2 Sat by Pulse 98 98 97 Oximetry 06/20/19 06/20/19 06/20/19 18:00 18:15 18:30 Temperature Pulse Rate 93 H 92 H 92 H Pulse Rate [ From Monitor] Respiratory 22 22 24 Rate Blood Pressure 109/40 113/44 102/36 O2 Sat by Pulse 98 98 97 Oximetry 06/20/19 06/20/19 18:45 19:00 Temperature Pulse Rate 90 90 Pulse Rate [ From Monitor] Respiratory 18 20 Rate Blood Pressure 101/41 116/48 O2 Sat by Pulse 97 98 Oximetry Constitutional: other (morbidly obese male, critically ill on vent) Eyes: non-icteric ENT: oropharynx moist Neck: other (extremely large in circumference) Effort: normal Ascultation: Bilateral: diminished breath sounds (secondary to body habitus) Cardiovascular: regular rate and rhythm (no mrg) Gastrointestinal: normoactive bowel sounds, soft, non-tender, other (obese) Integumentary: other (L hand is wrapped) Extremities: no cyanosis, pink and warm, other (1+ generalized edema) Neurologic: normal mental status, non-focal exam Psychiatric: mood appropriate, affect normal CBC and BMP: 06/20/19 04:40 06/20/19 04:40 ABG, PT/INR, D-dimer: ABG POC ABG pH 7.462 (7.35-7.45) H 06/05/19 03:52 ABG pH 7.455 pH Units (7.350-7.450) H 06/20/19 05:40 POC ABG pCO2 39.8 (35-45) 06/05/19 03:52 ABG pCO2 44.1 mm Hg 06/20/19 05:40 POC ABG pO2 86 (80-105) 06/05/19 03:52 ABG pO2 60.9 mm Hg (80.0-90.0) L 06/20/19 05:40 POC ABG HCO3 28.4 (22-26 mml/L) 06/05/19 03:52 POC ABG Total CO2 30 (23-27mmol/L) 06/05/19 03:52 POC ABG O2 Sat 97 06/05/19 03:52 ABG O2 Saturation 92.3 % (95.0-99.0) L 06/20/19 05:40 PT/INR, D-dimer PT 15.4 Sec. (12.2-14.9) H 05/01/19 Unknown INR 1.23 (0.87-1.13) H 05/01/19 Unknown Abnormal lab findings: Abnormal Labs 05/01/19 05/01/19 05/01/19 17:50 19:26 22:36 WBC RBC Hgb Hct MCV MCH MCHC RDW Plt Count Lymph % (Auto) [place] % (Auto) Eos % (Auto) Lymph # [place] # Eos # Seg Neutrophils % Seg Neuts % (Manual) Lymphocytes % (Manual) Monocytes % (Manual) Eosinophils % (Manual) Nucleated RBC % Seg Neutrophils # Seg Neutrophils # Man Lymphocytes # (Manual) Monocytes # (Manual) Eosinophils # (Manual) PT INR APTT Fibrinogen POC ABG pH 7.272 L 7.331 L ABG pH POC ABG pCO2 52.8 H POC ABG pO2 ABG pO2 ABG HCO3 ABG O2 Saturation ABG Base Excess ABG Hemoglobin Oxyhemoglobin Sodium 136 L Potassium 6.5 H* Chloride 97.2 L Carbon Dioxide BUN 60 H Creatinine Glucose 113 H POC Glucose Uric Acid Calcium Phosphorus Magnesium 2.40 H Iron TIBC AST 139 H ALT 154 H Total Creatine Kinase CK-MB (CK-2) Troponin T NT-Pro-B Natriuret Pep Total Protein Albumin 3.8 L Triglycerides HDL Cholesterol Folate Urine WBC (Auto) Urine Creatinine Urine Total Protein Vancomycin Trough 05/01/19 05/01/19 05/01/19 Unknown Unknown Unknown WBC 16.1 H RBC Hgb Hct MCV MCH MCHC RDW 17.2 H Plt Count Lymph % (Auto) [place] % (Auto) 9.6 H Eos % (Auto) Lymph # [place] # 1.5 H Eos # Seg Neutrophils % 73.0 H Seg Neuts % (Manual) Lymphocytes % (Manual) Monocytes % (Manual) Eosinophils % (Manual) Nucleated RBC % Seg Neutrophils # 11.7 H Seg Neutrophils # Man Lymphocytes # (Manual) Monocytes # (Manual) Eosinophils # (Manual) PT 15.4 H INR 1.23 H APTT 22.7 L Fibrinogen POC ABG pH ABG pH POC ABG pCO2 POC ABG pO2 ABG pO2 ABG HCO3 ABG O2 Saturation ABG Base Excess ABG Hemoglobin Oxyhemoglobin Sodium Potassium Chloride Carbon Dioxide BUN Creatinine Glucose POC Glucose Uric Acid Calcium Phosphorus Magnesium Iron TIBC AST ALT Total Creatine Kinase CK-MB (CK-2) Troponin T NT-Pro-B Natriuret Pep 6831 H Total Protein Albumin Triglycerides HDL Cholesterol Folate Urine WBC (Auto) Urine Creatinine Urine Total Protein Vancomycin Trough 05/01/19 05/02/19 05/02/19 Unknown 00:06 00:06 WBC RBC Hgb Hct MCV MCH MCHC RDW Plt Count Lymph % (Auto) [place] % (Auto) Eos % (Auto) Lymph # [place] # Eos # Seg Neutrophils % Seg Neuts % (Manual) Lymphocytes % (Manual) Monocytes % (Manual) Eosinophils % (Manual) Nucleated RBC % Seg Neutrophils # Seg Neutrophils # Man Lymphocytes # (Manual) Monocytes # (Manual) Eosinophils # (Manual) PT INR APTT Fibrinogen POC ABG pH ABG pH POC ABG pCO2 POC ABG pO2 ABG pO2 ABG HCO3 ABG O2 Saturation ABG Base Excess ABG Hemoglobin Oxyhemoglobin Sodium Potassium Chloride Carbon Dioxide BUN Creatinine Glucose POC Glucose Uric Acid Calcium Phosphorus 4.90 H Magnesium Iron TIBC AST ALT Total Creatine Kinase 226 H CK-MB (CK-2) 5.7 H Troponin T 0.044 H NT-Pro-B Natriuret Pep Total Protein Albumin Triglycerides 182 H HDL Cholesterol 18 L Folate Urine WBC (Auto) Urine Creatinine Urine Total Protein Vancomycin Trough 05/02/19 05/02/19 05/02/19 02:08 04:40 04:41 WBC 17.6 H RBC Hgb Hct MCV MCH 27 L MCHC RDW 17.4 H Plt Count Lymph % (Auto) 10.2 L [place] % (Auto) 11.0 H Eos % (Auto) Lymph # [place] # 1.9 H Eos # Seg Neutrophils % 78.0 H Seg Neuts % (Manual) Lymphocytes % (Manual) Monocytes % (Manual) Eosinophils % (Manual) Nucleated RBC % Seg Neutrophils # 13.8 H Seg Neutrophils # Man Lymphocytes # (Manual) Monocytes # (Manual) Eosinophils # (Manual) PT INR APTT Fibrinogen POC ABG pH ABG pH POC ABG pCO2 46.8 H POC ABG pO2 63 L ABG pO2 ABG HCO3 ABG O2 Saturation ABG Base Excess ABG Hemoglobin Oxyhemoglobin Sodium Potassium Chloride 96.3 L Carbon Dioxide BUN 63 H Creatinine 1.7 H Glucose POC Glucose Uric Acid Calcium Phosphorus Magnesium Iron TIBC AST ALT Total Creatine Kinase CK-MB (CK-2) Troponin T NT-Pro-B Natriuret Pep Total Protein Albumin Triglycerides HDL Cholesterol Folate Urine WBC (Auto) Urine Creatinine Urine Total Protein Vancomycin Trough 05/02/19 05/02/19 05/02/19 04:41 04:41 16:05 WBC RBC Hgb Hct MCV MCH MCHC RDW Plt Count Lymph % (Auto) [place] % (Auto) Eos % (Auto) Lymph # [place] # Eos # Seg Neutrophils % Seg Neuts % (Manual) Lymphocytes % (Manual) Monocytes % (Manual) Eosinophils % (Manual) Nucleated RBC % Seg Neutrophils # Seg Neutrophils # Man Lymphocytes # (Manual) Monocytes # (Manual) Eosinophils # (Manual) PT INR APTT Fibrinogen POC ABG pH ABG pH POC ABG pCO2 POC ABG pO2 ABG pO2 66.6 L ABG HCO3 31.9 H ABG O2 Saturation 92.5 L ABG Base Excess 5.8 H ABG Hemoglobin 13.3 L Oxyhemoglobin 90.6 L Sodium Potassium Chloride 97.2 L Carbon Dioxide BUN 61 H Creatinine 1.8 H Glucose POC Glucose Uric Acid Calcium Phosphorus Magnesium Iron TIBC AST ALT Total Creatine Kinase CK-MB (CK-2) 5.2 H Troponin T 0.067 H D NT-Pro-B Natriuret Pep Total Protein Albumin Triglycerides HDL Cholesterol Folate Urine WBC (Auto) Urine Creatinine Urine Total Protein Vancomycin Trough 05/02/19 05/03/19 05/03/19 20:39 04:35 05:05 WBC 11.8 H RBC Hgb Hct MCV MCH 27 L MCHC 31 L RDW 17.2 H Plt Count Lymph % (Auto) [place] % (Auto) Eos % (Auto) Lymph # [place] # Eos # Seg Neutrophils % Seg Neuts % (Manual) Lymphocytes % (Manual) Monocytes % (Manual) Eosinophils % (Manual) Nucleated RBC % Seg Neutrophils # Seg Neutrophils # Man Lymphocytes # (Manual) Monocytes # (Manual) Eosinophils # (Manual) PT INR APTT Fibrinogen POC ABG pH ABG pH POC ABG pCO2 53.6 H 54.0 H POC ABG pO2 55 L 63 L ABG pO2 ABG HCO3 ABG O2 Saturation ABG Base Excess ABG Hemoglobin Oxyhemoglobin Sodium Potassium Chloride Carbon Dioxide BUN Creatinine Glucose POC Glucose Uric Acid Calcium Phosphorus Magnesium Iron TIBC AST ALT Total Creatine Kinase CK-MB (CK-2) Troponin T NT-Pro-B Natriuret Pep Total Protein Albumin Triglycerides HDL Cholesterol Folate Urine WBC (Auto) Urine Creatinine Urine Total Protein Vancomycin Trough 05/03/19 05/03/19 05/03/19 05:05 10:55 16:48 WBC RBC Hgb Hct MCV MCH MCHC RDW Plt Count Lymph % (Auto) [place] % (Auto) Eos % (Auto) Lymph # [place] # Eos # Seg Neutrophils % Seg Neuts % (Manual) Lymphocytes % (Manual) Monocytes % (Manual) Eosinophils % (Manual) Nucleated RBC % Seg Neutrophils # Seg Neutrophils # Man Lymphocytes # (Manual) Monocytes # (Manual) Eosinophils # (Manual) PT INR APTT Fibrinogen POC ABG pH 7.604 H ABG pH POC ABG pCO2 POC ABG pO2 58 L ABG pO2 ABG HCO3 ABG O2 Saturation ABG Base Excess ABG Hemoglobin Oxyhemoglobin Sodium Potassium Chloride Carbon Dioxide BUN 52 H Creatinine 1.9 H Glucose 103 H POC Glucose Uric Acid Calcium Phosphorus Magnesium Iron TIBC AST ALT Total Creatine Kinase CK-MB (CK-2) Troponin T NT-Pro-B Natriuret Pep Total Protein Albumin Triglycerides HDL Cholesterol Folate Urine WBC (Auto) 33.0 H Urine Creatinine Urine Total Protein Vancomycin Trough 05/04/19 05/04/19 05/04/19 04:49 06:50 06:50 WBC 16.0 H RBC Hgb Hct MCV MCH 27 L MCHC 31 L RDW 17.8 H Plt Count Lymph % (Auto) [place] % (Auto) Eos % (Auto) Lymph # [place] # Eos # Seg Neutrophils % Seg Neuts % (Manual) Lymphocytes % (Manual) Monocytes % (Manual) Eosinophils % (Manual) Nucleated RBC % Seg Neutrophils # Seg Neutrophils # Man Lymphocytes # (Manual) Monocytes # (Manual) Eosinophils # (Manual) PT INR APTT Fibrinogen POC ABG pH 7.273 L ABG pH POC ABG pCO2 POC ABG pO2 ABG pO2 ABG HCO3 ABG O2 Saturation ABG Base Excess ABG Hemoglobin Oxyhemoglobin Sodium 148 H Potassium 5.5 H Chloride Carbon Dioxide BUN 53 H Creatinine 3.3 H D Glucose 106 H POC Glucose Uric Acid Calcium 8.3 L Phosphorus Magnesium Iron TIBC AST ALT Total Creatine Kinase CK-MB (CK-2) Troponin T NT-Pro-B Natriuret Pep Total Protein Albumin Triglycerides HDL Cholesterol Folate Urine WBC (Auto) Urine Creatinine Urine Total Protein Vancomycin Trough 05/05/19 05/05/19 05/05/19 00:05 04:30 05:00 WBC RBC Hgb Hct MCV MCH MCHC RDW Plt Count Lymph % (Auto) [place] % (Auto) Eos % (Auto) Lymph # [place] # Eos # Seg Neutrophils % Seg Neuts % (Manual) Lymphocytes % (Manual) Monocytes % (Manual) Eosinophils % (Manual) Nucleated RBC % Seg Neutrophils # Seg Neutrophils # Man Lymphocytes # (Manual) Monocytes # (Manual) Eosinophils # (Manual) PT INR APTT Fibrinogen POC ABG pH 7.225 L ABG pH POC ABG pCO2 > 70 H POC ABG pO2 ABG pO2 ABG HCO3 ABG O2 Saturation ABG Base Excess ABG Hemoglobin Oxyhemoglobin Sodium 151 H Potassium 5.1 H Chloride Carbon Dioxide BUN 64 H Creatinine 3.5 H Glucose 117 H POC Glucose 141 H Uric Acid Calcium 7.5 L Phosphorus Magnesium Iron TIBC AST 93 H ALT 65 H Total Creatine Kinase CK-MB (CK-2) Troponin T NT-Pro-B Natriuret Pep Total Protein Albumin 2.9 L Triglycerides HDL Cholesterol Folate Urine WBC (Auto) Urine Creatinine Urine Total Protein Vancomycin Trough 05/05/19 05/05/19 05/05/19 05:00 12:02 17:46 WBC 12.0 H RBC Hgb 11.3 L Hct MCV MCH 27 L MCHC 30 L RDW 18.4 H Plt Count Lymph % (Auto) 7.9 L [place] % (Auto) 10.2 H Eos % (Auto) Lymph # 1.0 L [place] # 1.2 H Eos # Seg Neutrophils % 80.8 H Seg Neuts % (Manual) Lymphocytes % (Manual) Monocytes % (Manual) Eosinophils % (Manual) Nucleated RBC % Seg Neutrophils # 9.7 H Seg Neutrophils # Man Lymphocytes # (Manual) Monocytes # (Manual) Eosinophils # (Manual) PT INR APTT Fibrinogen POC ABG pH ABG pH POC ABG pCO2 POC ABG pO2 ABG pO2 ABG HCO3 ABG O2 Saturation ABG Base Excess ABG Hemoglobin Oxyhemoglobin Sodium Potassium Chloride Carbon Dioxide BUN Creatinine Glucose POC Glucose 125 H 112 H Uric Acid Calcium Phosphorus Magnesium Iron TIBC AST ALT Total Creatine Kinase CK-MB (CK-2) Troponin T NT-Pro-B Natriuret Pep Total Protein Albumin Triglycerides HDL Cholesterol Folate Urine WBC (Auto) Urine Creatinine Urine Total Protein Vancomycin Trough 05/05/19 05/06/19 05/06/19 23:42 03:58 04:45 WBC 11.4 H RBC Hgb 10.7 L Hct 34.2 L MCV MCH 27 L MCHC 31 L RDW 16.9 H Plt Count Lymph % (Auto) [place] % (Auto) Eos % (Auto) Lymph # [place] # Eos # Seg Neutrophils % Seg Neuts % (Manual) Lymphocytes % (Manual) Monocytes % (Manual) Eosinophils % (Manual) Nucleated RBC % Seg Neutrophils # Seg Neutrophils # Man Lymphocytes # (Manual) Monocytes # (Manual) Eosinophils # (Manual) PT INR APTT Fibrinogen POC ABG pH ABG pH POC ABG pCO2 62.4 H POC ABG pO2 111 H ABG pO2 ABG HCO3 ABG O2 Saturation ABG Base Excess ABG Hemoglobin Oxyhemoglobin Sodium Potassium Chloride Carbon Dioxide BUN Creatinine Glucose POC Glucose 128 H Uric Acid Calcium Phosphorus Magnesium Iron TIBC AST ALT Total Creatine Kinase CK-MB (CK-2) Troponin T NT-Pro-B Natriuret Pep Total Protein Albumin Triglycerides HDL Cholesterol Folate Urine WBC (Auto) Urine Creatinine Urine Total Protein Vancomycin Trough 05/06/19 05/06/19 05/06/19 04:45 05:33 12:30 WBC RBC Hgb Hct MCV MCH MCHC RDW Plt Count Lymph % (Auto) [place] % (Auto) Eos % (Auto) Lymph # [place] # Eos # Seg Neutrophils % Seg Neuts % (Manual) Lymphocytes % (Manual) Monocytes % (Manual) Eosinophils % (Manual) Nucleated RBC % Seg Neutrophils # Seg Neutrophils # Man Lymphocytes # (Manual) Monocytes # (Manual) Eosinophils # (Manual) PT INR APTT Fibrinogen POC ABG pH ABG pH POC ABG pCO2 POC ABG pO2 ABG pO2 ABG HCO3 ABG O2 Saturation ABG Base Excess ABG Hemoglobin Oxyhemoglobin Sodium 149 H Potassium Chloride Carbon Dioxide 31 H BUN 67 H Creatinine 3.2 H Glucose 125 H POC Glucose 117 H 116 H Uric Acid Calcium 7.5 L Phosphorus Magnesium Iron TIBC AST ALT Total Creatine Kinase CK-MB (CK-2) Troponin T NT-Pro-B Natriuret Pep Total Protein Albumin Triglycerides HDL Cholesterol Folate Urine WBC (Auto) Urine Creatinine Urine Total Protein Vancomycin Trough 05/06/19 05/06/19 05/07/19 18:34 23:16 05:22 WBC RBC Hgb Hct MCV MCH MCHC RDW Plt Count Lymph % (Auto) [place] % (Auto) Eos % (Auto) Lymph # [place] # Eos # Seg Neutrophils % Seg Neuts % (Manual) Lymphocytes % (Manual) Monocytes % (Manual) Eosinophils % (Manual) Nucleated RBC % Seg Neutrophils # Seg Neutrophils # Man Lymphocytes # (Manual) Monocytes # (Manual) Eosinophils # (Manual) PT INR APTT Fibrinogen POC ABG pH ABG pH POC ABG pCO2 POC ABG pO2 ABG pO2 ABG HCO3 ABG O2 Saturation ABG Base Excess ABG Hemoglobin Oxyhemoglobin Sodium Potassium Chloride Carbon Dioxide BUN Creatinine Glucose POC Glucose 128 H 143 H 166 H Uric Acid Calcium Phosphorus Magnesium Iron TIBC AST ALT Total Creatine Kinase CK-MB (CK-2) Troponin T NT-Pro-B Natriuret Pep Total Protein Albumin Triglycerides HDL Cholesterol Folate Urine WBC (Auto) Urine Creatinine Urine Total Protein Vancomycin Trough 05/07/19 05/07/19 05/07/19 06:33 07:03 09:35 WBC RBC Hgb Hct MCV MCH MCHC RDW Plt Count Lymph % (Auto) [place] % (Auto) Eos % (Auto) Lymph # [place] # Eos # Seg Neutrophils % Seg Neuts % (Manual) Lymphocytes % (Manual) Monocytes % (Manual) Eosinophils % (Manual) Nucleated RBC % Seg Neutrophils # Seg Neutrophils # Man Lymphocytes # (Manual) Monocytes # (Manual) Eosinophils # (Manual) PT INR APTT Fibrinogen POC ABG pH 7.263 L 7.288 L ABG pH POC ABG pCO2 POC ABG pO2 51 L 56 L ABG pO2 ABG HCO3 ABG O2 Saturation ABG Base Excess ABG Hemoglobin Oxyhemoglobin Sodium Potassium Chloride Carbon Dioxide BUN 76 H Creatinine 3.2 H Glucose 147 H POC Glucose Uric Acid Calcium 7.9 L Phosphorus Magnesium Iron TIBC AST ALT Total Creatine Kinase CK-MB (CK-2) Troponin T NT-Pro-B Natriuret Pep Total Protein Albumin Triglycerides HDL Cholesterol Folate Urine WBC (Auto) Urine Creatinine Urine Total Protein Vancomycin Trough 05/07/19 05/07/19 05/07/19 09:35 12:17 13:45 WBC 13.4 H RBC Hgb 11.6 L Hct MCV MCH 27 L MCHC 31 L RDW 17.5 H Plt Count Lymph % (Auto) [place] % (Auto) Eos % (Auto) Lymph # [place] # Eos # Seg Neutrophils % Seg Neuts % (Manual) Lymphocytes % (Manual) Monocytes % (Manual) Eosinophils % (Manual) Nucleated RBC % Seg Neutrophils # Seg Neutrophils # Man Lymphocytes # (Manual) Monocytes # (Manual) Eosinophils # (Manual) PT INR APTT Fibrinogen POC ABG pH ABG pH POC ABG pCO2 POC ABG pO2 ABG pO2 ABG HCO3 ABG O2 Saturation ABG Base Excess ABG Hemoglobin Oxyhemoglobin Sodium Potassium Chloride Carbon Dioxide BUN Creatinine Glucose POC Glucose 130 H Uric Acid 18.0 H Calcium Phosphorus Magnesium Iron TIBC AST ALT Total Creatine Kinase CK-MB (CK-2) Troponin T NT-Pro-B Natriuret Pep Total Protein Albumin Triglycerides HDL Cholesterol Folate Urine WBC (Auto) Urine Creatinine Urine Total Protein Vancomycin Trough 05/07/19 05/07/19 05/08/19 17:39 22:40 05:06 WBC RBC Hgb Hct MCV MCH MCHC RDW Plt Count Lymph % (Auto) [place] % (Auto) Eos % (Auto) Lymph # [place] # Eos # Seg Neutrophils % Seg Neuts % (Manual) Lymphocytes % (Manual) Monocytes % (Manual) Eosinophils % (Manual) Nucleated RBC % Seg Neutrophils # Seg Neutrophils # Man Lymphocytes # (Manual) Monocytes # (Manual) Eosinophils # (Manual) PT INR APTT Fibrinogen POC ABG pH ABG pH POC ABG pCO2 POC ABG pO2 ABG pO2 ABG HCO3 ABG O2 Saturation ABG Base Excess ABG Hemoglobin Oxyhemoglobin Sodium Potassium Chloride Carbon Dioxide BUN Creatinine Glucose POC Glucose 116 H 148 H Uric Acid Calcium Phosphorus Magnesium Iron TIBC AST ALT Total Creatine Kinase CK-MB (CK-2) Troponin T NT-Pro-B Natriuret Pep Total Protein Albumin Triglycerides HDL Cholesterol Folate Urine WBC (Auto) Urine Creatinine 292.8 H Urine Total Protein 269 H Vancomycin Trough 05/08/19 05/08/19 05/08/19 05:32 11:28 13:48 WBC RBC Hgb Hct MCV MCH MCHC RDW Plt Count Lymph % (Auto) [place] % (Auto) Eos % (Auto) Lymph # [place] # Eos # Seg Neutrophils % Seg Neuts % (Manual) Lymphocytes % (Manual) Monocytes % (Manual) Eosinophils % (Manual) Nucleated RBC % Seg Neutrophils # Seg Neutrophils # Man Lymphocytes # (Manual) Monocytes # (Manual) Eosinophils # (Manual) PT INR APTT Fibrinogen POC ABG pH ABG pH POC ABG pCO2 45.4 H POC ABG pO2 64 L ABG pO2 ABG HCO3 ABG O2 Saturation ABG Base Excess ABG Hemoglobin Oxyhemoglobin Sodium Potassium Chloride Carbon Dioxide BUN 73 H Creatinine 2.7 H Glucose 127 H POC Glucose 107 H Uric Acid Calcium 7.6 L Phosphorus Magnesium Iron TIBC AST ALT Total Creatine Kinase CK-MB (CK-2) Troponin T NT-Pro-B Natriuret Pep Total Protein Albumin Triglycerides HDL Cholesterol Folate Urine WBC (Auto) Urine Creatinine Urine Total Protein Vancomycin Trough 05/08/19 05/09/19 05/09/19 17:48 04:50 04:53 WBC RBC 3.07 L Hgb 8.5 L D Hct 29.3 L D MCV 96 H MCH MCHC 29 L RDW 18.1 H Plt Count Lymph % (Auto) [place] % (Auto) Eos % (Auto) Lymph # [place] # Eos # Seg Neutrophils % Seg Neuts % (Manual) Lymphocytes % (Manual) Monocytes % (Manual) Eosinophils % (Manual) Nucleated RBC % Seg Neutrophils # Seg Neutrophils # Man Lymphocytes # (Manual) Monocytes # (Manual) Eosinophils # (Manual) PT INR APTT Fibrinogen POC ABG pH 7.316 L ABG pH POC ABG pCO2 66.0 H POC ABG pO2 69 L ABG pO2 ABG HCO3 ABG O2 Saturation ABG Base Excess ABG Hemoglobin Oxyhemoglobin Sodium Potassium Chloride Carbon Dioxide BUN Creatinine Glucose POC Glucose 155 H Uric Acid Calcium Phosphorus Magnesium Iron TIBC AST ALT Total Creatine Kinase CK-MB (CK-2) Troponin T NT-Pro-B Natriuret Pep Total Protein Albumin Triglycerides HDL Cholesterol Folate Urine WBC (Auto) Urine Creatinine Urine Total Protein Vancomycin Trough 05/09/19 05/09/19 05/09/19 05:46 07:24 12:10 WBC RBC Hgb Hct MCV MCH MCHC RDW Plt Count Lymph % (Auto) [place] % (Auto) Eos % (Auto) Lymph # [place] # Eos # Seg Neutrophils % Seg Neuts % (Manual) Lymphocytes % (Manual) Monocytes % (Manual) Eosinophils % (Manual) Nucleated RBC % Seg Neutrophils # Seg Neutrophils # Man Lymphocytes # (Manual) Monocytes # (Manual) Eosinophils # (Manual) PT INR APTT Fibrinogen POC ABG pH ABG pH POC ABG pCO2 POC ABG pO2 ABG pO2 ABG HCO3 ABG O2 Saturation ABG Base Excess ABG Hemoglobin Oxyhemoglobin Sodium Potassium Chloride Carbon Dioxide BUN 73 H Creatinine 2.4 H Glucose 153 H POC Glucose 123 H 148 H Uric Acid Calcium 8.2 L Phosphorus Magnesium Iron TIBC AST 45 H ALT Total Creatine Kinase CK-MB (CK-2) Troponin T NT-Pro-B Natriuret Pep Total Protein 6.0 L Albumin 1.9 L Triglycerides HDL Cholesterol Folate Urine WBC (Auto) Urine Creatinine Urine Total Protein Vancomycin Trough 1205/09/19 05/10/19 18:23 23:26 04:52 WBC RBC Hgb Hct MCV MCH MCHC RDW Plt Count Lymph % (Auto) [place] % (Auto) Eos % (Auto) Lymph # [place] # Eos # Seg Neutrophils % Seg Neuts % (Manual) Lymphocytes % (Manual) Monocytes % (Manual) Eosinophils % (Manual) Nucleated RBC % Seg Neutrophils # Seg Neutrophils # Man Lymphocytes # (Manual) Monocytes # (Manual) Eosinophils # (Manual) PT INR APTT Fibrinogen POC ABG pH 7.305 L ABG pH POC ABG pCO2 62.6 H POC ABG pO2 ABG pO2 ABG HCO3 ABG O2 Saturation ABG Base Excess ABG Hemoglobin Oxyhemoglobin Sodium Potassium Chloride Carbon Dioxide BUN Creatinine Glucose POC Glucose 147 H 121 H Uric Acid Calcium Phosphorus Magnesium Iron TIBC AST ALT Total Creatine Kinase CK-MB (CK-2) Troponin T NT-Pro-B Natriuret Pep Total Protein Albumin Triglycerides HDL Cholesterol Folate Urine WBC (Auto) Urine Creatinine Urine Total Protein Vancomycin Trough 05/10/19 05/10/19 05/10/19 05:00 05:00 05:50 WBC RBC Hgb 10.3 L Hct 33.7 L MCV MCH 27 L MCHC 31 L RDW 17.0 H Plt Count Lymph % (Auto) [place] % (Auto) Eos % (Auto) Lymph # [place] # Eos # Seg Neutrophils % Seg Neuts % (Manual) Lymphocytes % (Manual) Monocytes % (Manual) Eosinophils % (Manual) Nucleated RBC % Seg Neutrophils # Seg Neutrophils # Man Lymphocytes # (Manual) Monocytes # (Manual) Eosinophils # (Manual) PT INR APTT Fibrinogen POC ABG pH ABG pH POC ABG pCO2 POC ABG pO2 ABG pO2 ABG HCO3 ABG O2 Saturation ABG Base Excess ABG Hemoglobin Oxyhemoglobin Sodium 147 H Potassium Chloride Carbon Dioxide BUN 70 H Creatinine 2.6 H Glucose 155 H POC Glucose 158 H Uric Acid Calcium 8.2 L Phosphorus Magnesium Iron TIBC AST ALT Total Creatine Kinase CK-MB (CK-2) Troponin T NT-Pro-B Natriuret Pep Total Protein 6.1 L Albumin 2.5 L Triglycerides HDL Cholesterol Folate Urine WBC (Auto) Urine Creatinine Urine Total Protein Vancomycin Trough 05/10/19 05/11/19 05/11/19 13:14 07:26 11:40 WBC RBC Hgb Hct MCV MCH MCHC RDW Plt Count Lymph % (Auto) [place] % (Auto) Eos % (Auto) Lymph # [place] # Eos # Seg Neutrophils % Seg Neuts % (Manual) Lymphocytes % (Manual) Monocytes % (Manual) Eosinophils % (Manual) Nucleated RBC % Seg Neutrophils # Seg Neutrophils # Man Lymphocytes # (Manual) Monocytes # (Manual) Eosinophils # (Manual) PT INR APTT Fibrinogen POC ABG pH ABG pH POC ABG pCO2 48.0 H POC ABG pO2 58 L ABG pO2 ABG HCO3 ABG O2 Saturation ABG Base Excess ABG Hemoglobin Oxyhemoglobin Sodium 147 H Potassium Chloride 107.2 H Carbon Dioxide BUN 67 H Creatinine 2.6 H Glucose 121 H POC Glucose 159 H Uric Acid Calcium Phosphorus Magnesium Iron TIBC AST ALT Total Creatine Kinase CK-MB (CK-2) Troponin T NT-Pro-B Natriuret Pep Total Protein Albumin Triglycerides HDL Cholesterol Folate Urine WBC (Auto) Urine Creatinine Urine Total Protein Vancomycin Trough 05/11/19 05/11/19 05/12/19 18:13 23:46 04:40 WBC RBC Hgb Hct MCV MCH MCHC RDW Plt Count Lymph % (Auto) [place] % (Auto) Eos % (Auto) Lymph # [place] # Eos # Seg Neutrophils % Seg Neuts % (Manual) Lymphocytes % (Manual) Monocytes % (Manual) Eosinophils % (Manual) Nucleated RBC % Seg Neutrophils # Seg Neutrophils # Man Lymphocytes # (Manual) Monocytes # (Manual) Eosinophils # (Manual) PT INR APTT Fibrinogen POC ABG pH ABG pH 7.264 L POC ABG pCO2 POC ABG pO2 ABG pO2 66.8 L ABG HCO3 31.0 H ABG O2 Saturation 92.0 L ABG Base Excess ABG Hemoglobin 10.3 L Oxyhemoglobin 90.1 L Sodium Potassium Chloride Carbon Dioxide BUN Creatinine Glucose POC Glucose 120 H 121 H Uric Acid Calcium Phosphorus Magnesium Iron TIBC AST ALT Total Creatine Kinase CK-MB (CK-2) Troponin T NT-Pro-B Natriuret Pep Total Protein Albumin Triglycerides HDL Cholesterol Folate Urine WBC (Auto) Urine Creatinine Urine Total Protein Vancomycin Trough 05/12/19 05/12/19 05/12/19 04:45 04:45 11:14 WBC RBC Hgb 10.2 L Hct 32.4 L MCV MCH MCHC 31 L RDW 17.2 H Plt Count Lymph % (Auto) [place] % (Auto) Eos % (Auto) Lymph # [place] # Eos # Seg Neutrophils % Seg Neuts % (Manual) Lymphocytes % (Manual) Monocytes % (Manual) Eosinophils % (Manual) Nucleated RBC % Seg Neutrophils # Seg Neutrophils # Man Lymphocytes # (Manual) Monocytes # (Manual) Eosinophils # (Manual) PT INR APTT Fibrinogen POC ABG pH 7.284 L ABG pH POC ABG pCO2 67.8 H POC ABG pO2 ABG pO2 ABG HCO3 ABG O2 Saturation ABG Base Excess ABG Hemoglobin Oxyhemoglobin Sodium Potassium Chloride Carbon Dioxide BUN 63 H Creatinine 2.4 H Glucose 110 H POC Glucose Uric Acid Calcium Phosphorus Magnesium Iron TIBC AST ALT Total Creatine Kinase CK-MB (CK-2) Troponin T NT-Pro-B Natriuret Pep Total Protein Albumin Triglycerides HDL Cholesterol Folate Urine WBC (Auto) Urine Creatinine Urine Total Protein Vancomycin Trough 05/12/19 05/12/19 05/13/19 11:44 23:11 04:30 WBC RBC Hgb Hct MCV MCH MCHC RDW Plt Count Lymph % (Auto) [place] % (Auto) Eos % (Auto) Lymph # [place] # Eos # Seg Neutrophils % Seg Neuts % (Manual) Lymphocytes % (Manual) Monocytes % (Manual) Eosinophils % (Manual) Nucleated RBC % Seg Neutrophils # Seg Neutrophils # Man Lymphocytes # (Manual) Monocytes # (Manual) Eosinophils # (Manual) PT INR APTT Fibrinogen POC ABG pH ABG pH 7.288 L POC ABG pCO2 POC ABG pO2 ABG pO2 109.7 H ABG HCO3 30.9 H ABG O2 Saturation ABG Base Excess 3.2 H ABG Hemoglobin 9.6 L Oxyhemoglobin Sodium Potassium Chloride Carbon Dioxide BUN Creatinine Glucose POC Glucose 126 H 147 H Uric Acid Calcium Phosphorus Magnesium Iron TIBC AST ALT Total Creatine Kinase CK-MB (CK-2) Troponin T NT-Pro-B Natriuret Pep Total Protein Albumin Triglycerides HDL Cholesterol Folate Urine WBC (Auto) Urine Creatinine Urine Total Protein Vancomycin Trough 05/13/19 05/13/19 05/14/19 06:27 11:58 04:00 WBC RBC 3.16 L Hgb 9.3 L Hct 27.9 L MCV MCH MCHC RDW 17.1 H Plt Count Lymph % (Auto) [place] % (Auto) Eos % (Auto) Lymph # [place] # Eos # Seg Neutrophils % Seg Neuts % (Manual) Lymphocytes % (Manual) Monocytes % (Manual) Eosinophils % (Manual) Nucleated RBC % Seg Neutrophils # Seg Neutrophils # Man Lymphocytes # (Manual) Monocytes # (Manual) Eosinophils # (Manual) PT INR APTT Fibrinogen POC ABG pH ABG pH POC ABG pCO2 POC ABG pO2 ABG pO2 ABG HCO3 ABG O2 Saturation ABG Base Excess ABG Hemoglobin Oxyhemoglobin Sodium Potassium Chloride Carbon Dioxide BUN Creatinine Glucose POC Glucose 113 H 130 H Uric Acid Calcium Phosphorus Magnesium Iron TIBC AST ALT Total Creatine Kinase CK-MB (CK-2) Troponin T NT-Pro-B Natriuret Pep Total Protein Albumin Triglycerides HDL Cholesterol Folate Urine WBC (Auto) Urine Creatinine Urine Total Protein Vancomycin Trough 05/14/19 05/14/19 05/14/19 04:00 04:34 05:32 WBC RBC Hgb Hct MCV MCH MCHC RDW Plt Count Lymph % (Auto) [place] % (Auto) Eos % (Auto) Lymph # [place] # Eos # Seg Neutrophils % Seg Neuts % (Manual) Lymphocytes % (Manual) Monocytes % (Manual) Eosinophils % (Manual) Nucleated RBC % Seg Neutrophils # Seg Neutrophils # Man Lymphocytes # (Manual) Monocytes # (Manual) Eosinophils # (Manual) PT INR APTT Fibrinogen POC ABG pH 7.328 L ABG pH POC ABG pCO2 61.7 H POC ABG pO2 ABG pO2 ABG HCO3 ABG O2 Saturation ABG Base Excess ABG Hemoglobin Oxyhemoglobin Sodium 135 L D Potassium Chloride Carbon Dioxide BUN 57 H Creatinine 2.2 H Glucose 115 H POC Glucose 115 H Uric Acid Calcium 8.1 L Phosphorus Magnesium Iron TIBC AST ALT Total Creatine Kinase CK-MB (CK-2) Troponin T NT-Pro-B Natriuret Pep Total Protein Albumin Triglycerides HDL Cholesterol Folate Urine WBC (Auto) Urine Creatinine Urine Total Protein Vancomycin Trough 05/14/19 05/15/19 05/15/19 12:11 05:10 05:24 WBC RBC Hgb Hct MCV MCH MCHC RDW Plt Count Lymph % (Auto) [place] % (Auto) Eos % (Auto) Lymph # [place] # Eos # Seg Neutrophils % Seg Neuts % (Manual) Lymphocytes % (Manual) Monocytes % (Manual) Eosinophils % (Manual) Nucleated RBC % Seg Neutrophils # Seg Neutrophils # Man Lymphocytes # (Manual) Monocytes # (Manual) Eosinophils # (Manual) PT INR APTT Fibrinogen POC ABG pH ABG pH 7.342 L POC ABG pCO2 POC ABG pO2 ABG pO2 79.1 L ABG HCO3 28.2 H ABG O2 Saturation ABG Base Excess ABG Hemoglobin 7.0 L Oxyhemoglobin 94.4 L Sodium Potassium Chloride Carbon Dioxide BUN Creatinine Glucose POC Glucose 110 H 116 H Uric Acid Calcium Phosphorus Magnesium Iron TIBC AST ALT Total Creatine Kinase CK-MB (CK-2) Troponin T NT-Pro-B Natriuret Pep Total Protein Albumin Triglycerides HDL Cholesterol Folate Urine WBC (Auto) Urine Creatinine Urine Total Protein Vancomycin Trough 05/15/19 05/15/19 05/16/19 09:00 18:12 04:50 WBC RBC Hgb Hct MCV MCH MCHC RDW Plt Count Lymph % (Auto) [place] % (Auto) Eos % (Auto) Lymph # [place] # Eos # Seg Neutrophils % Seg Neuts % (Manual) Lymphocytes % (Manual) Monocytes % (Manual) Eosinophils % (Manual) Nucleated RBC % Seg Neutrophils # Seg Neutrophils # Man Lymphocytes # (Manual) Monocytes # (Manual) Eosinophils # (Manual) PT INR APTT Fibrinogen POC ABG pH ABG pH 7.250 L POC ABG pCO2 POC ABG pO2 ABG pO2 76.4 L ABG HCO3 ABG O2 Saturation 94.6 L ABG Base Excess -3.1 L ABG Hemoglobin 9.7 L Oxyhemoglobin 92.4 L Sodium Potassium Chloride Carbon Dioxide BUN Creatinine Glucose POC Glucose 110 H Uric Acid Calcium Phosphorus Magnesium Iron TIBC AST ALT Total Creatine Kinase CK-MB (CK-2) Troponin T NT-Pro-B Natriuret Pep Total Protein Albumin Triglycerides HDL Cholesterol Folate Urine WBC (Auto) Urine Creatinine Urine Total Protein Vancomycin Trough 20.5 H 05/16/19 05/16/19 05/17/19 05:50 05:50 04:20 WBC RBC 3.36 L 3.44 L Hgb 9.4 L 9.3 L Hct 29.1 L 29.7 L MCV MCH 27 L MCHC 31 L RDW 17.6 H 17.6 H Plt Count Lymph % (Auto) [place] % (Auto) Eos % (Auto) Lymph # [place] # Eos # Seg Neutrophils % Seg Neuts % (Manual) 77.0 H Lymphocytes % (Manual) 5.0 L Monocytes % (Manual) Eosinophils % (Manual) 10.0 H Nucleated RBC % Seg Neutrophils # Seg Neutrophils # Man Lymphocytes # (Manual) 0.5 L Monocytes # (Manual) Eosinophils # (Manual) 0.9 H PT INR APTT Fibrinogen POC ABG pH ABG pH POC ABG pCO2 POC ABG pO2 ABG pO2 ABG HCO3 ABG O2 Saturation ABG Base Excess ABG Hemoglobin Oxyhemoglobin Sodium Potassium Chloride Carbon Dioxide BUN 83 H Creatinine 4.4 H D Glucose 118 H POC Glucose Uric Acid Calcium Phosphorus Magnesium Iron TIBC AST ALT Total Creatine Kinase CK-MB (CK-2) Troponin T NT-Pro-B Natriuret Pep Total Protein Albumin Triglycerides HDL Cholesterol Folate Urine WBC (Auto) Urine Creatinine Urine Total Protein Vancomycin Trough 05/17/19 05/17/19 05/18/19 04:30 Unknown 01:50 WBC RBC 3.49 L Hgb 9.4 L Hct 30.0 L MCV MCH 27 L MCHC 31 L RDW 17.8 H Plt Count Lymph % (Auto) 7.9 L [place] % (Auto) 15.4 H Eos % (Auto) 6.3 H Lymph # 0.7 L [place] # 1.4 H Eos # 0.6 H Seg Neutrophils % 70.2 H Seg Neuts % (Manual) Lymphocytes % (Manual) Monocytes % (Manual) Eosinophils % (Manual) Nucleated RBC % Seg Neutrophils # Seg Neutrophils # Man Lymphocytes # (Manual) Monocytes # (Manual) Eosinophils # (Manual) PT INR APTT Fibrinogen POC ABG pH ABG pH 7.272 L POC ABG pCO2 POC ABG pO2 ABG pO2 75.7 L ABG HCO3 ABG O2 Saturation 93.8 L ABG Base Excess -3.0 L ABG Hemoglobin 7.8 L Oxyhemoglobin 91.6 L Sodium Potassium 5.2 H Chloride Carbon Dioxide BUN 96 H Creatinine 5.7 H Glucose 112 H POC Glucose Uric Acid Calcium Phosphorus Magnesium Iron TIBC AST ALT Total Creatine Kinase CK-MB (CK-2) Troponin T NT-Pro-B Natriuret Pep Total Protein Albumin Triglycerides 173 H HDL Cholesterol Folate Urine WBC (Auto) Urine Creatinine Urine Total Protein Vancomycin Trough 05/18/19 05/18/19 05/18/19 01:50 04:41 05:24 WBC RBC Hgb Hct MCV MCH MCHC RDW Plt Count Lymph % (Auto) [place] % (Auto) Eos % (Auto) Lymph # [place] # Eos # Seg Neutrophils % Seg Neuts % (Manual) Lymphocytes % (Manual) Monocytes % (Manual) Eosinophils % (Manual) Nucleated RBC % Seg Neutrophils # Seg Neutrophils # Man Lymphocytes # (Manual) Monocytes # (Manual) Eosinophils # (Manual) PT INR APTT Fibrinogen POC ABG pH 7.260 L ABG pH POC ABG pCO2 54.9 H POC ABG pO2 ABG pO2 ABG HCO3 ABG O2 Saturation ABG Base Excess ABG Hemoglobin Oxyhemoglobin Sodium Potassium 5.6 H Chloride Carbon Dioxide BUN 104 H Creatinine 6.6 H Glucose 107 H POC Glucose 106 H Uric Acid Calcium Phosphorus Magnesium Iron TIBC AST ALT Total Creatine Kinase CK-MB (CK-2) Troponin T NT-Pro-B Natriuret Pep Total Protein Albumin Triglycerides HDL Cholesterol Folate Urine WBC (Auto) Urine Creatinine Urine Total Protein Vancomycin Trough 05/18/19 05/18/19 05/19/19 11:34 23:26 04:06 WBC RBC 3.22 L Hgb 8.8 L Hct 27.3 L MCV MCH 27 L MCHC RDW 17.5 H Plt Count Lymph % (Auto) [place] % (Auto) Eos % (Auto) Lymph # [place] # Eos # Seg Neutrophils % Seg Neuts % (Manual) 74.0 H Lymphocytes % (Manual) 4.0 L Monocytes % (Manual) 11.0 H Eosinophils % (Manual) 7.0 H Nucleated RBC % 1.0 H Seg Neutrophils # Seg Neutrophils # Man Lymphocytes # (Manual) 0.3 L Monocytes # (Manual) 0.9 H Eosinophils # (Manual) 0.6 H PT INR APTT Fibrinogen POC ABG pH ABG pH POC ABG pCO2 POC ABG pO2 ABG pO2 ABG HCO3 ABG O2 Saturation ABG Base Excess ABG Hemoglobin Oxyhemoglobin Sodium Potassium Chloride Carbon Dioxide BUN Creatinine Glucose POC Glucose 152 H 112 H Uric Acid Calcium Phosphorus Magnesium Iron TIBC AST ALT Total Creatine Kinase CK-MB (CK-2) Troponin T NT-Pro-B Natriuret Pep Total Protein Albumin Triglycerides HDL Cholesterol Folate Urine WBC (Auto) Urine Creatinine Urine Total Protein Vancomycin Trough 05/19/19 05/19/19 05/20/19 04:06 06:00 04:00 WBC RBC 3.40 L Hgb 9.2 L Hct 28.6 L MCV MCH 27 L MCHC RDW 17.6 H Plt Count Lymph % (Auto) [place] % (Auto) Eos % (Auto) Lymph # [place] # Eos # Seg Neutrophils % Seg Neuts % (Manual) Lymphocytes % (Manual) 11.0 L Monocytes % (Manual) Eosinophils % (Manual) 14.0 H Nucleated RBC % Seg Neutrophils # Seg Neutrophils # Man Lymphocytes # (Manual) 1.1 L Monocytes # (Manual) Eosinophils # (Manual) 1.4 H PT INR APTT Fibrinogen POC ABG pH ABG pH 7.315 L POC ABG pCO2 POC ABG pO2 ABG pO2 ABG HCO3 ABG O2 Saturation ABG Base Excess ABG Hemoglobin 6.7 L Oxyhemoglobin 94.1 L Sodium Potassium 5.2 H Chloride Carbon Dioxide 21 L BUN 110 H Creatinine 7.2 H Glucose POC Glucose Uric Acid Calcium 8.3 L Phosphorus Magnesium Iron TIBC AST ALT Total Creatine Kinase CK-MB (CK-2) Troponin T NT-Pro-B Natriuret Pep Total Protein Albumin Triglycerides HDL Cholesterol Folate Urine WBC (Auto) Urine Creatinine Urine Total Protein Vancomycin Trough 05/20/19 05/20/19 05/20/19 04:00 05:48 12:00 WBC RBC Hgb Hct MCV MCH MCHC RDW Plt Count Lymph % (Auto) [place] % (Auto) Eos % (Auto) Lymph # [place] # Eos # Seg Neutrophils % Seg Neuts % (Manual) Lymphocytes % (Manual) Monocytes % (Manual) Eosinophils % (Manual) Nucleated RBC % Seg Neutrophils # Seg Neutrophils # Man Lymphocytes # (Manual) Monocytes # (Manual) Eosinophils # (Manual) PT INR APTT Fibrinogen POC ABG pH ABG pH 7.281 L POC ABG pCO2 POC ABG pO2 ABG pO2 78.7 L ABG HCO3 ABG O2 Saturation 94.5 L ABG Base Excess -3.0 L ABG Hemoglobin 9.9 L Oxyhemoglobin 92.5 L Sodium 136 L Potassium 5.7 H Chloride 96.3 L Carbon Dioxide BUN 125 H Creatinine 8.3 H Glucose 106 H POC Glucose Uric Acid Calcium Phosphorus Magnesium Iron TIBC AST ALT Total Creatine Kinase CK-MB (CK-2) Troponin T NT-Pro-B Natriuret Pep Total Protein Albumin Triglycerides HDL Cholesterol Folate Urine WBC (Auto) 26.0 H Urine Creatinine Urine Total Protein Vancomycin Trough 05/21/19 05/21/19 05/21/19 04:33 05:20 Unknown WBC RBC 3.38 L Hgb 9.1 L Hct 28.5 L MCV MCH 27 L MCHC RDW 17.4 H Plt Count Lymph % (Auto) [place] % (Auto) Eos % (Auto) Lymph # [place] # Eos # Seg Neutrophils % Seg Neuts % (Manual) 71.0 H Lymphocytes % (Manual) 1.0 L Monocytes % (Manual) 11.0 H Eosinophils % (Manual) 6.0 H Nucleated RBC % Seg Neutrophils # Seg Neutrophils # Man Lymphocytes # (Manual) 0.1 L Monocytes # (Manual) 1.0 H Eosinophils # (Manual) 0.6 H PT INR APTT Fibrinogen POC ABG pH 7.315 L ABG pH POC ABG pCO2 57.8 H POC ABG pO2 68 L ABG pO2 ABG HCO3 ABG O2 Saturation ABG Base Excess ABG Hemoglobin Oxyhemoglobin Sodium Potassium Chloride 96.3 L Carbon Dioxide BUN 102 H Creatinine 7.0 H Glucose 103 H POC Glucose Uric Acid Calcium Phosphorus Magnesium Iron TIBC AST ALT Total Creatine Kinase CK-MB (CK-2) Troponin T NT-Pro-B Natriuret Pep Total Protein Albumin Triglycerides HDL Cholesterol Folate Urine WBC (Auto) Urine Creatinine Urine Total Protein Vancomycin Trough 05/22/19 05/22/19 05/22/19 03:54 06:25 06:25 WBC RBC 3.22 L Hgb 8.6 L Hct 27.0 L MCV MCH 27 L MCHC RDW 17.5 H Plt Count Lymph % (Auto) [place] % (Auto) 16.2 H Eos % (Auto) 10.8 H Lymph # [place] # 1.3 H Eos # 0.9 H Seg Neutrophils % Seg Neuts % (Manual) Lymphocytes % (Manual) 10.0 L Monocytes % (Manual) 13.0 H Eosinophils % (Manual) 8.0 H Nucleated RBC % Seg Neutrophils # Seg Neutrophils # Man Lymphocytes # (Manual) 0.9 L Monocytes # (Manual) 1.1 H Eosinophils # (Manual) 0.7 H PT INR APTT Fibrinogen POC ABG pH 7.313 L ABG pH POC ABG pCO2 55.0 H POC ABG pO2 ABG pO2 ABG HCO3 ABG O2 Saturation ABG Base Excess ABG Hemoglobin Oxyhemoglobin Sodium 135 L Potassium Chloride 94.3 L Carbon Dioxide BUN 117 H Creatinine 7.8 H Glucose POC Glucose Uric Acid Calcium 8.2 L Phosphorus Magnesium Iron TIBC AST ALT Total Creatine Kinase CK-MB (CK-2) Troponin T NT-Pro-B Natriuret Pep Total Protein Albumin Triglycerides HDL Cholesterol Folate Urine WBC (Auto) Urine Creatinine Urine Total Protein Vancomycin Trough 05/23/19 05/24/19 05/24/19 05:21 05:00 05:00 WBC RBC 3.18 L Hgb 8.5 L Hct 26.7 L MCV MCH 27 L MCHC RDW 17.9 H Plt Count Lymph % (Auto) [place] % (Auto) Eos % (Auto) Lymph # [place] # Eos # Seg Neutrophils % Seg Neuts % (Manual) Lymphocytes % (Manual) Monocytes % (Manual) Eosinophils % (Manual) Nucleated RBC % Seg Neutrophils # Seg Neutrophils # Man Lymphocytes # (Manual) Monocytes # (Manual) Eosinophils # (Manual) PT INR APTT Fibrinogen POC ABG pH ABG pH POC ABG pCO2 49.7 H POC ABG pO2 73 L ABG pO2 ABG HCO3 ABG O2 Saturation ABG Base Excess ABG Hemoglobin Oxyhemoglobin Sodium Potassium Chloride 95.7 L Carbon Dioxide BUN 97 H Creatinine 6.5 H Glucose POC Glucose Uric Acid Calcium 8.0 L Phosphorus Magnesium Iron TIBC AST ALT Total Creatine Kinase CK-MB (CK-2) Troponin T NT-Pro-B Natriuret Pep Total Protein Albumin Triglycerides HDL Cholesterol Folate Urine WBC (Auto) Urine Creatinine Urine Total Protein Vancomycin Trough 05/24/19 05/25/19 05/25/19 06:17 04:22 15:45 WBC RBC 2.98 L Hgb 8.1 L Hct 24.9 L MCV MCH 27 L MCHC RDW 17.8 H Plt Count Lymph % (Auto) [place] % (Auto) Eos % (Auto) Lymph # [place] # Eos # Seg Neutrophils % Seg Neuts % (Manual) Lymphocytes % (Manual) Monocytes % (Manual) Eosinophils % (Manual) Nucleated RBC % Seg Neutrophils # Seg Neutrophils # Man Lymphocytes # (Manual) Monocytes # (Manual) Eosinophils # (Manual) PT INR APTT Fibrinogen POC ABG pH 7.330 L 7.313 L ABG pH POC ABG pCO2 52.5 H 51.1 H POC ABG pO2 77 L ABG pO2 ABG HCO3 ABG O2 Saturation ABG Base Excess ABG Hemoglobin Oxyhemoglobin Sodium Potassium Chloride Carbon Dioxide BUN Creatinine Glucose POC Glucose Uric Acid Calcium Phosphorus Magnesium Iron TIBC AST ALT Total Creatine Kinase CK-MB (CK-2) Troponin T NT-Pro-B Natriuret Pep Total Protein Albumin Triglycerides HDL Cholesterol Folate Urine WBC (Auto) Urine Creatinine Urine Total Protein Vancomycin Trough 05/25/19 05/26/19 05/26/19 15:45 04:13 05:00 WBC RBC 3.10 L Hgb 8.4 L Hct 26.0 L MCV MCH 27 L MCHC RDW 17.4 H Plt Count Lymph % (Auto) [place] % (Auto) Eos % (Auto) Lymph # [place] # Eos # Seg Neutrophils % Seg Neuts % (Manual) Lymphocytes % (Manual) Monocytes % (Manual) Eosinophils % (Manual) Nucleated RBC % Seg Neutrophils # Seg Neutrophils # Man Lymphocytes # (Manual) Monocytes # (Manual) Eosinophils # (Manual) PT INR APTT Fibrinogen POC ABG pH 7.295 L ABG pH POC ABG pCO2 56.5 H POC ABG pO2 63 L ABG pO2 ABG HCO3 ABG O2 Saturation ABG Base Excess ABG Hemoglobin Oxyhemoglobin Sodium 136 L Potassium Chloride 96.8 L Carbon Dioxide BUN 83 H Creatinine 5.9 H Glucose POC Glucose Uric Acid Calcium 7.6 L Phosphorus Magnesium Iron TIBC AST ALT Total Creatine Kinase CK-MB (CK-2) Troponin T NT-Pro-B Natriuret Pep Total Protein Albumin Triglycerides HDL Cholesterol Folate Urine WBC (Auto) Urine Creatinine Urine Total Protein Vancomycin Trough 05/26/19 05/27/19 05/28/19 05:00 04:48 04:47 WBC RBC Hgb Hct MCV MCH MCHC RDW Plt Count Lymph % (Auto) [place] % (Auto) Eos % (Auto) Lymph # [place] # Eos # Seg Neutrophils % Seg Neuts % (Manual) Lymphocytes % (Manual) Monocytes % (Manual) Eosinophils % (Manual) Nucleated RBC % Seg Neutrophils # Seg Neutrophils # Man Lymphocytes # (Manual) Monocytes # (Manual) Eosinophils # (Manual) PT INR APTT Fibrinogen POC ABG pH 7.323 L ABG pH 7.284 L POC ABG pCO2 56.2 H POC ABG pO2 ABG pO2 71.6 L ABG HCO3 ABG O2 Saturation 92.0 L ABG Base Excess ABG Hemoglobin 7.7 L Oxyhemoglobin 89.9 L Sodium 136 L Potassium Chloride 95.3 L Carbon Dioxide BUN 96 H Creatinine 6.5 H Glucose 108 H POC Glucose Uric Acid Calcium 7.6 L Phosphorus Magnesium Iron TIBC AST ALT Total Creatine Kinase CK-MB (CK-2) Troponin T NT-Pro-B Natriuret Pep Total Protein Albumin Triglycerides HDL Cholesterol Folate Urine WBC (Auto) Urine Creatinine Urine Total Protein Vancomycin Trough 05/28/19 05/29/19 05/29/19 12:30 12:47 23:44 WBC RBC Hgb Hct MCV MCH MCHC RDW Plt Count Lymph % (Auto) [place] % (Auto) Eos % (Auto) Lymph # [place] # Eos # Seg Neutrophils % Seg Neuts % (Manual) Lymphocytes % (Manual) Monocytes % (Manual) Eosinophils % (Manual) Nucleated RBC % Seg Neutrophils # Seg Neutrophils # Man Lymphocytes # (Manual) Monocytes # (Manual) Eosinophils # (Manual) PT INR APTT Fibrinogen POC ABG pH ABG pH POC ABG pCO2 POC ABG pO2 ABG pO2 ABG HCO3 ABG O2 Saturation ABG Base Excess ABG Hemoglobin Oxyhemoglobin Sodium 135 L Potassium Chloride 95.3 L Carbon Dioxide BUN 82 H Creatinine 6.0 H Glucose POC Glucose 136 H 159 H Uric Acid Calcium 7.5 L Phosphorus Magnesium Iron TIBC AST ALT Total Creatine Kinase CK-MB (CK-2) Troponin T NT-Pro-B Natriuret Pep Total Protein Albumin Triglycerides HDL Cholesterol Folate Urine WBC (Auto) Urine Creatinine Urine Total Protein Vancomycin Trough 05/30/19 05/30/19 05/30/19 04:30 05:38 12:00 WBC RBC 3.01 L Hgb 8.2 L Hct 25.3 L MCV MCH 27 L MCHC RDW 17.5 H Plt Count Lymph % (Auto) [place] % (Auto) Eos % (Auto) Lymph # [place] # Eos # Seg Neutrophils % Seg Neuts % (Manual) 80.0 H Lymphocytes % (Manual) 10.0 L Monocytes % (Manual) Eosinophils % (Manual) Nucleated RBC % Seg Neutrophils # Seg Neutrophils # Man 8.0 H Lymphocytes # (Manual) 1.0 L Monocytes # (Manual) Eosinophils # (Manual) PT INR APTT Fibrinogen POC ABG pH ABG pH POC ABG pCO2 POC ABG pO2 73 L ABG pO2 ABG HCO3 ABG O2 Saturation ABG Base Excess ABG Hemoglobin Oxyhemoglobin Sodium Potassium Chloride Carbon Dioxide BUN Creatinine Glucose POC Glucose 166 H Uric Acid Calcium Phosphorus Magnesium Iron TIBC AST ALT Total Creatine Kinase CK-MB (CK-2) Troponin T NT-Pro-B Natriuret Pep Total Protein Albumin Triglycerides HDL Cholesterol Folate Urine WBC (Auto) Urine Creatinine Urine Total Protein Vancomycin Trough 05/30/19 05/31/19 05/31/19 23:45 04:07 13:04 WBC 14.3 H RBC 2.88 L Hgb 7.7 L Hct 23.9 L MCV 83 L MCH 27 L MCHC RDW 17.8 H Plt Count Lymph % (Auto) [place] % (Auto) Eos % (Auto) Lymph # [place] # Eos # Seg Neutrophils % Seg Neuts % (Manual) 83.0 H Lymphocytes % (Manual) 11.0 L Monocytes % (Manual) Eosinophils % (Manual) Nucleated RBC % Seg Neutrophils # Seg Neutrophils # Man 11.9 H Lymphocytes # (Manual) Monocytes # (Manual) 0.9 H Eosinophils # (Manual) PT INR APTT Fibrinogen POC ABG pH ABG pH POC ABG pCO2 47.4 H POC ABG pO2 ABG pO2 ABG HCO3 ABG O2 Saturation ABG Base Excess ABG Hemoglobin Oxyhemoglobin Sodium Potassium Chloride Carbon Dioxide BUN Creatinine Glucose POC Glucose 209 H Uric Acid Calcium Phosphorus Magnesium Iron TIBC AST ALT Total Creatine Kinase CK-MB (CK-2) Troponin T NT-Pro-B Natriuret Pep Total Protein Albumin Triglycerides HDL Cholesterol Folate Urine WBC (Auto) Urine Creatinine Urine Total Protein Vancomycin Trough 05/31/19 05/31/19 06/01/19 13:04 16:42 00:15 WBC RBC Hgb Hct MCV MCH MCHC RDW Plt Count Lymph % (Auto) [place] % (Auto) Eos % (Auto) Lymph # [place] # Eos # Seg Neutrophils % Seg Neuts % (Manual) Lymphocytes % (Manual) Monocytes % (Manual) Eosinophils % (Manual) Nucleated RBC % Seg Neutrophils # Seg Neutrophils # Man Lymphocytes # (Manual) Monocytes # (Manual) Eosinophils # (Manual) PT INR APTT Fibrinogen POC ABG pH ABG pH POC ABG pCO2 POC ABG pO2 ABG pO2 ABG HCO3 ABG O2 Saturation ABG Base Excess ABG Hemoglobin Oxyhemoglobin Sodium 129 L Potassium Chloride 88.6 L Carbon Dioxide 19 L BUN 117 H Creatinine 6.7 H Glucose 205 H POC Glucose 228 H 223 H Uric Acid Calcium 7.4 L Phosphorus 7.40 H Magnesium Iron TIBC AST 58 H ALT 149 H Total Creatine Kinase CK-MB (CK-2) Troponin T NT-Pro-B Natriuret Pep Total Protein 6.0 L Albumin 2.5 L Triglycerides HDL Cholesterol Folate Urine WBC (Auto) Urine Creatinine Urine Total Protein Vancomycin Trough 06/01/19 06/01/19 06/01/19 04:33 05:27 12:31 WBC RBC Hgb Hct MCV MCH MCHC RDW Plt Count Lymph % (Auto) [place] % (Auto) Eos % (Auto) Lymph # [place] # Eos # Seg Neutrophils % Seg Neuts % (Manual) Lymphocytes % (Manual) Monocytes % (Manual) Eosinophils % (Manual) Nucleated RBC % Seg Neutrophils # Seg Neutrophils # Man Lymphocytes # (Manual) Monocytes # (Manual) Eosinophils # (Manual) PT INR APTT Fibrinogen POC ABG pH ABG pH POC ABG pCO2 POC ABG pO2 ABG pO2 56.9 L ABG HCO3 ABG O2 Saturation 85.9 L ABG Base Excess ABG Hemoglobin 8.1 L Oxyhemoglobin 83.6 L Sodium Potassium Chloride Carbon Dioxide BUN Creatinine Glucose POC Glucose 183 H 217 H Uric Acid Calcium Phosphorus Magnesium Iron TIBC AST ALT Total Creatine Kinase CK-MB (CK-2) Troponin T NT-Pro-B Natriuret Pep Total Protein Albumin Triglycerides HDL Cholesterol Folate Urine WBC (Auto) Urine Creatinine Urine Total Protein Vancomycin Trough 06/01/19 06/02/19 06/02/19 18:20 00:00 05:33 WBC RBC Hgb Hct MCV MCH MCHC RDW Plt Count Lymph % (Auto) [place] % (Auto) Eos % (Auto) Lymph # [place] # Eos # Seg Neutrophils % Seg Neuts % (Manual) Lymphocytes % (Manual) Monocytes % (Manual) Eosinophils % (Manual) Nucleated RBC % Seg Neutrophils # Seg Neutrophils # Man Lymphocytes # (Manual) Monocytes # (Manual) Eosinophils # (Manual) PT INR APTT Fibrinogen POC ABG pH ABG pH POC ABG pCO2 POC ABG pO2 ABG pO2 ABG HCO3 ABG O2 Saturation ABG Base Excess ABG Hemoglobin Oxyhemoglobin Sodium Potassium Chloride Carbon Dioxide BUN Creatinine Glucose POC Glucose 265 H 279 H 259 H Uric Acid Calcium Phosphorus Magnesium Iron TIBC AST ALT Total Creatine Kinase CK-MB (CK-2) Troponin T NT-Pro-B Natriuret Pep Total Protein Albumin Triglycerides HDL Cholesterol Folate Urine WBC (Auto) Urine Creatinine Urine Total Protein Vancomycin Trough 06/02/19 06/02/19 06/02/19 11:06 11:06 11:42 WBC 13.1 H RBC 2.92 L Hgb 7.9 L Hct 24.4 L MCV MCH 27 L MCHC RDW 17.4 H Plt Count Lymph % (Auto) [place] % (Auto) Eos % (Auto) Lymph # [place] # Eos # Seg Neutrophils % Seg Neuts % (Manual) 78.0 H Lymphocytes % (Manual) 12.0 L Monocytes % (Manual) 10.0 H Eosinophils % (Manual) Nucleated RBC % Seg Neutrophils # Seg Neutrophils # Man 10.2 H Lymphocytes # (Manual) Monocytes # (Manual) 1.3 H Eosinophils # (Manual) PT INR APTT Fibrinogen POC ABG pH ABG pH POC ABG pCO2 POC ABG pO2 ABG pO2 ABG HCO3 ABG O2 Saturation ABG Base Excess ABG Hemoglobin Oxyhemoglobin Sodium 135 L Potassium Chloride 94.7 L Carbon Dioxide 21 L BUN 107 H Creatinine 4.5 H Glucose 286 H POC Glucose 263 H Uric Acid Calcium 7.9 L Phosphorus 6.30 H Magnesium Iron TIBC AST ALT 104 H Total Creatine Kinase CK-MB (CK-2) Troponin T NT-Pro-B Natriuret Pep Total Protein 6.0 L Albumin 2.7 L Triglycerides HDL Cholesterol Folate Urine WBC (Auto) Urine Creatinine Urine Total Protein Vancomycin Trough 06/02/19 06/02/19 06/03/19 18:17 23:55 05:30 WBC RBC Hgb Hct MCV MCH MCHC RDW Plt Count Lymph % (Auto) [place] % (Auto) Eos % (Auto) Lymph # [place] # Eos # Seg Neutrophils % Seg Neuts % (Manual) Lymphocytes % (Manual) Monocytes % (Manual) Eosinophils % (Manual) Nucleated RBC % Seg Neutrophils # Seg Neutrophils # Man Lymphocytes # (Manual) Monocytes # (Manual) Eosinophils # (Manual) PT INR APTT Fibrinogen POC ABG pH ABG pH POC ABG pCO2 POC ABG pO2 ABG pO2 ABG HCO3 ABG O2 Saturation ABG Base Excess ABG Hemoglobin Oxyhemoglobin Sodium Potassium Chloride 95.1 L Carbon Dioxide 21 L BUN 119 H Creatinine 4.1 H Glucose 330 H POC Glucose 276 H 244 H Uric Acid Calcium 8.1 L Phosphorus Magnesium Iron TIBC AST ALT 98 H Total Creatine Kinase CK-MB (CK-2) Troponin T NT-Pro-B Natriuret Pep Total Protein 5.8 L Albumin 2.8 L Triglycerides HDL Cholesterol Folate Urine WBC (Auto) Urine Creatinine Urine Total Protein Vancomycin Trough 06/03/19 06/03/19 06/03/19 05:30 06:04 09:42 WBC 12.8 H RBC 3.01 L Hgb 8.2 L Hct 25.4 L MCV MCH 27 L MCHC RDW 17.5 H Plt Count Lymph % (Auto) [place] % (Auto) Eos % (Auto) Lymph # [place] # Eos # Seg Neutrophils % Seg Neuts % (Manual) 78.0 H Lymphocytes % (Manual) 10.0 L Monocytes % (Manual) 12.0 H Eosinophils % (Manual) Nucleated RBC % Seg Neutrophils # Seg Neutrophils # Man 10.0 H Lymphocytes # (Manual) Monocytes # (Manual) 1.5 H Eosinophils # (Manual) PT INR APTT Fibrinogen POC ABG pH ABG pH POC ABG pCO2 POC ABG pO2 ABG pO2 ABG HCO3 ABG O2 Saturation ABG Base Excess ABG Hemoglobin Oxyhemoglobin Sodium Potassium Chloride Carbon Dioxide BUN 106 H Creatinine Glucose POC Glucose 254 H Uric Acid Calcium Phosphorus Magnesium Iron TIBC AST ALT Total Creatine Kinase CK-MB (CK-2) Troponin T NT-Pro-B Natriuret Pep Total Protein Albumin Triglycerides HDL Cholesterol Folate Urine WBC (Auto) Urine Creatinine Urine Total Protein Vancomycin Trough 06/03/19 06/03/19 06/03/19 12:52 17:25 23:37 WBC RBC Hgb Hct MCV MCH MCHC RDW Plt Count Lymph % (Auto) [place] % (Auto) Eos % (Auto) Lymph # [place] # Eos # Seg Neutrophils % Seg Neuts % (Manual) Lymphocytes % (Manual) Monocytes % (Manual) Eosinophils % (Manual) Nucleated RBC % Seg Neutrophils # Seg Neutrophils # Man Lymphocytes # (Manual) Monocytes # (Manual) Eosinophils # (Manual) PT INR APTT Fibrinogen POC ABG pH ABG pH POC ABG pCO2 POC ABG pO2 ABG pO2 ABG HCO3 ABG O2 Saturation ABG Base Excess ABG Hemoglobin Oxyhemoglobin Sodium Potassium Chloride Carbon Dioxide BUN Creatinine Glucose POC Glucose 274 H 285 H 310 H Uric Acid Calcium Phosphorus Magnesium Iron TIBC AST ALT Total Creatine Kinase CK-MB (CK-2) Troponin T NT-Pro-B Natriuret Pep Total Protein Albumin Triglycerides HDL Cholesterol Folate Urine WBC (Auto) Urine Creatinine Urine Total Protein Vancomycin Trough 06/04/19 06/04/19 06/04/19 04:57 05:03 11:50 WBC RBC Hgb Hct MCV MCH MCHC RDW Plt Count Lymph % (Auto) [place] % (Auto) Eos % (Auto) Lymph # [place] # Eos # Seg Neutrophils % Seg Neuts % (Manual) Lymphocytes % (Manual) Monocytes % (Manual) Eosinophils % (Manual) Nucleated RBC % Seg Neutrophils # Seg Neutrophils # Man Lymphocytes # (Manual) Monocytes # (Manual) Eosinophils # (Manual) PT INR APTT Fibrinogen POC ABG pH 7.488 H ABG pH POC ABG pCO2 POC ABG pO2 ABG pO2 ABG HCO3 ABG O2 Saturation ABG Base Excess ABG Hemoglobin Oxyhemoglobin Sodium Potassium Chloride Carbon Dioxide BUN Creatinine Glucose POC Glucose 275 H 279 H Uric Acid Calcium Phosphorus Magnesium Iron TIBC AST ALT Total Creatine Kinase CK-MB (CK-2) Troponin T NT-Pro-B Natriuret Pep Total Protein Albumin Triglycerides HDL Cholesterol Folate Urine WBC (Auto) Urine Creatinine Urine Total Protein Vancomycin Trough 06/04/19 06/04/19 06/04/19 18:32 22:03 23:55 WBC RBC Hgb Hct MCV MCH MCHC RDW Plt Count Lymph % (Auto) [place] % (Auto) Eos % (Auto) Lymph # [place] # Eos # Seg Neutrophils % Seg Neuts % (Manual) Lymphocytes % (Manual) Monocytes % (Manual) Eosinophils % (Manual) Nucleated RBC % Seg Neutrophils # Seg Neutrophils # Man Lymphocytes # (Manual) Monocytes # (Manual) Eosinophils # (Manual) PT INR APTT Fibrinogen POC ABG pH ABG pH POC ABG pCO2 POC ABG pO2 ABG pO2 ABG HCO3 ABG O2 Saturation ABG Base Excess ABG Hemoglobin Oxyhemoglobin Sodium Potassium Chloride Carbon Dioxide BUN Creatinine Glucose POC Glucose 267 H 307 H 292 H Uric Acid Calcium Phosphorus Magnesium Iron TIBC AST ALT Total Creatine Kinase CK-MB (CK-2) Troponin T NT-Pro-B Natriuret Pep Total Protein Albumin Triglycerides HDL Cholesterol Folate Urine WBC (Auto) Urine Creatinine Urine Total Protein Vancomycin Trough 06/05/19 06/05/19 06/05/19 03:52 06:41 12:29 WBC RBC Hgb Hct MCV MCH MCHC RDW Plt Count Lymph % (Auto) [place] % (Auto) Eos % (Auto) Lymph # [place] # Eos # Seg Neutrophils % Seg Neuts % (Manual) Lymphocytes % (Manual) Monocytes % (Manual) Eosinophils % (Manual) Nucleated RBC % Seg Neutrophils # Seg Neutrophils # Man Lymphocytes # (Manual) Monocytes # (Manual) Eosinophils # (Manual) PT INR APTT Fibrinogen POC ABG pH 7.462 H ABG pH POC ABG pCO2 POC ABG pO2 ABG pO2 ABG HCO3 ABG O2 Saturation ABG Base Excess ABG Hemoglobin Oxyhemoglobin Sodium Potassium Chloride Carbon Dioxide BUN Creatinine Glucose POC Glucose 369 H 265 H Uric Acid Calcium Phosphorus Magnesium Iron TIBC AST ALT Total Creatine Kinase CK-MB (CK-2) Troponin T NT-Pro-B Natriuret Pep Total Protein Albumin Triglycerides HDL Cholesterol Folate Urine WBC (Auto) Urine Creatinine Urine Total Protein Vancomycin Trough 06/05/19 06/05/19 06/05/19 18:20 21:42 23:21 WBC RBC Hgb Hct MCV MCH MCHC RDW Plt Count Lymph % (Auto) [place] % (Auto) Eos % (Auto) Lymph # [place] # Eos # Seg Neutrophils % Seg Neuts % (Manual) Lymphocytes % (Manual) Monocytes % (Manual) Eosinophils % (Manual) Nucleated RBC % Seg Neutrophils # Seg Neutrophils # Man Lymphocytes # (Manual) Monocytes # (Manual) Eosinophils # (Manual) PT INR APTT Fibrinogen POC ABG pH ABG pH POC ABG pCO2 POC ABG pO2 ABG pO2 ABG HCO3 ABG O2 Saturation ABG Base Excess ABG Hemoglobin Oxyhemoglobin Sodium Potassium Chloride Carbon Dioxide BUN Creatinine Glucose POC Glucose 249 H 246 H 274 H Uric Acid Calcium Phosphorus Magnesium Iron TIBC AST ALT Total Creatine Kinase CK-MB (CK-2) Troponin T NT-Pro-B Natriuret Pep Total Protein Albumin Triglycerides HDL Cholesterol Folate Urine WBC (Auto) Urine Creatinine Urine Total Protein Vancomycin Trough 06/06/19 06/06/19 06/06/19 04:00 05:49 11:34 WBC 18.1 H RBC 3.53 L Hgb 9.5 L Hct 30.3 L MCV MCH 27 L MCHC 31 L RDW 19.5 H Plt Count Lymph % (Auto) [place] % (Auto) Eos % (Auto) Lymph # [place] # Eos # Seg Neutrophils % Seg Neuts % (Manual) 87.0 H Lymphocytes % (Manual) 3.0 L Monocytes % (Manual) 8.0 H Eosinophils % (Manual) Nucleated RBC % Seg Neutrophils # Seg Neutrophils # Man 15.7 H Lymphocytes # (Manual) 0.5 L Monocytes # (Manual) 1.4 H Eosinophils # (Manual) PT INR APTT Fibrinogen POC ABG pH ABG pH 7.472 H POC ABG pCO2 POC ABG pO2 ABG pO2 76.4 L ABG HCO3 28.1 H ABG O2 Saturation ABG Base Excess 4.3 H ABG Hemoglobin 12.5 L Oxyhemoglobin 93.8 L Sodium Potassium Chloride Carbon Dioxide BUN Creatinine Glucose POC Glucose 340 H Uric Acid Calcium Phosphorus Magnesium Iron TIBC AST ALT Total Creatine Kinase CK-MB (CK-2) Troponin T NT-Pro-B Natriuret Pep Total Protein Albumin Triglycerides HDL Cholesterol Folate Urine WBC (Auto) Urine Creatinine Urine Total Protein Vancomycin Trough 06/06/19 06/06/19 06/06/19 11:34 12:11 18:10 WBC RBC Hgb Hct MCV MCH MCHC RDW Plt Count Lymph % (Auto) [place] % (Auto) Eos % (Auto) Lymph # [place] # Eos # Seg Neutrophils % Seg Neuts % (Manual) Lymphocytes % (Manual) Monocytes % (Manual) Eosinophils % (Manual) Nucleated RBC % Seg Neutrophils # Seg Neutrophils # Man Lymphocytes # (Manual) Monocytes # (Manual) Eosinophils # (Manual) PT INR APTT Fibrinogen POC ABG pH ABG pH POC ABG pCO2 POC ABG pO2 ABG pO2 ABG HCO3 ABG O2 Saturation ABG Base Excess ABG Hemoglobin Oxyhemoglobin Sodium Potassium Chloride Carbon Dioxide BUN 70 H Creatinine Glucose 310 H POC Glucose 283 H 301 H Uric Acid Calcium 8.3 L Phosphorus 4.60 H Magnesium Iron TIBC AST ALT 75 H Total Creatine Kinase CK-MB (CK-2) Troponin T NT-Pro-B Natriuret Pep Total Protein 5.6 L Albumin 2.9 L Triglycerides HDL Cholesterol Folate Urine WBC (Auto) Urine Creatinine Urine Total Protein Vancomycin Trough 06/06/19 06/06/19 06/07/19 22:21 23:16 04:30 WBC RBC Hgb Hct MCV MCH MCHC RDW Plt Count Lymph % (Auto) [place] % (Auto) Eos % (Auto) Lymph # [place] # Eos # Seg Neutrophils % Seg Neuts % (Manual) Lymphocytes % (Manual) Monocytes % (Manual) Eosinophils % (Manual) Nucleated RBC % Seg Neutrophils # Seg Neutrophils # Man Lymphocytes # (Manual) Monocytes # (Manual) Eosinophils # (Manual) PT INR APTT Fibrinogen POC ABG pH ABG pH 7.480 H POC ABG pCO2 POC ABG pO2 ABG pO2 77.0 L ABG HCO3 27.2 H ABG O2 Saturation ABG Base Excess 3.5 H ABG Hemoglobin 7.1 L Oxyhemoglobin 94.2 L Sodium Potassium Chloride Carbon Dioxide BUN Creatinine Glucose POC Glucose 289 H 343 H Uric Acid Calcium Phosphorus Magnesium Iron TIBC AST ALT Total Creatine Kinase CK-MB (CK-2) Troponin T NT-Pro-B Natriuret Pep Total Protein Albumin Triglycerides HDL Cholesterol Folate Urine WBC (Auto) Urine Creatinine Urine Total Protein Vancomycin Trough 06/07/19 06/07/19 06/07/19 05:15 12:52 18:41 WBC RBC Hgb Hct MCV MCH MCHC RDW Plt Count Lymph % (Auto) [place] % (Auto) Eos % (Auto) Lymph # [place] # Eos # Seg Neutrophils % Seg Neuts % (Manual) Lymphocytes % (Manual) Monocytes % (Manual) Eosinophils % (Manual) Nucleated RBC % Seg Neutrophils # Seg Neutrophils # Man Lymphocytes # (Manual) Monocytes # (Manual) Eosinophils # (Manual) PT INR APTT Fibrinogen POC ABG pH ABG pH POC ABG pCO2 POC ABG pO2 ABG pO2 ABG HCO3 ABG O2 Saturation ABG Base Excess ABG Hemoglobin Oxyhemoglobin Sodium Potassium Chloride Carbon Dioxide BUN Creatinine Glucose POC Glucose 307 H 226 H 187 H Uric Acid Calcium Phosphorus Magnesium Iron TIBC AST ALT Total Creatine Kinase CK-MB (CK-2) Troponin T NT-Pro-B Natriuret Pep Total Protein Albumin Triglycerides HDL Cholesterol Folate Urine WBC (Auto) Urine Creatinine Urine Total Protein Vancomycin Trough 06/07/19 06/07/19 06/08/19 22:54 23:46 04:20 WBC 16.0 H RBC Hgb 10.0 L Hct 32.1 L MCV MCH 27 L MCHC 31 L RDW 19.4 H Plt Count Lymph % (Auto) [place] % (Auto) Eos % (Auto) Lymph # [place] # Eos # Seg Neutrophils % Seg Neuts % (Manual) 87.0 H Lymphocytes % (Manual) 7.0 L Monocytes % (Manual) Eosinophils % (Manual) Nucleated RBC % Seg Neutrophils # Seg Neutrophils # Man 13.9 H Lymphocytes # (Manual) 1.1 L Monocytes # (Manual) 1.0 H Eosinophils # (Manual) PT INR APTT Fibrinogen POC ABG pH ABG pH POC ABG pCO2 POC ABG pO2 ABG pO2 ABG HCO3 ABG O2 Saturation ABG Base Excess ABG Hemoglobin Oxyhemoglobin Sodium Potassium Chloride Carbon Dioxide BUN Creatinine Glucose POC Glucose 199 H 172 H Uric Acid Calcium Phosphorus Magnesium Iron TIBC AST ALT Total Creatine Kinase CK-MB (CK-2) Troponin T NT-Pro-B Natriuret Pep Total Protein Albumin Triglycerides HDL Cholesterol Folate Urine WBC (Auto) Urine Creatinine Urine Total Protein Vancomycin Trough 06/08/19 06/08/19 06/08/19 04:20 05:15 11:31 WBC RBC Hgb Hct MCV MCH MCHC RDW Plt Count Lymph % (Auto) [place] % (Auto) Eos % (Auto) Lymph # [place] # Eos # Seg Neutrophils % Seg Neuts % (Manual) Lymphocytes % (Manual) Monocytes % (Manual) Eosinophils % (Manual) Nucleated RBC % Seg Neutrophils # Seg Neutrophils # Man Lymphocytes # (Manual) Monocytes # (Manual) Eosinophils # (Manual) PT INR APTT Fibrinogen POC ABG pH ABG pH POC ABG pCO2 POC ABG pO2 ABG pO2 ABG HCO3 ABG O2 Saturation ABG Base Excess ABG Hemoglobin Oxyhemoglobin Sodium 146 H D Potassium Chloride Carbon Dioxide BUN 77 H Creatinine Glucose 205 H POC Glucose 209 H 181 H Uric Acid Calcium Phosphorus Magnesium Iron TIBC AST ALT 66 H Total Creatine Kinase CK-MB (CK-2) Troponin T NT-Pro-B Natriuret Pep Total Protein 5.5 L Albumin 2.9 L Triglycerides HDL Cholesterol Folate Urine WBC (Auto) Urine Creatinine Urine Total Protein Vancomycin Trough 06/08/19 06/08/19 06/09/19 17:28 23:24 05:20 WBC RBC Hgb Hct MCV MCH MCHC RDW Plt Count Lymph % (Auto) [place] % (Auto) Eos % (Auto) Lymph # [place] # Eos # Seg Neutrophils % Seg Neuts % (Manual) Lymphocytes % (Manual) Monocytes % (Manual) Eosinophils % (Manual) Nucleated RBC % Seg Neutrophils # Seg Neutrophils # Man Lymphocytes # (Manual) Monocytes # (Manual) Eosinophils # (Manual) PT INR APTT Fibrinogen POC ABG pH ABG pH POC ABG pCO2 POC ABG pO2 ABG pO2 ABG HCO3 ABG O2 Saturation ABG Base Excess ABG Hemoglobin Oxyhemoglobin Sodium Potassium Chloride Carbon Dioxide BUN Creatinine Glucose POC Glucose 215 H 200 H 173 H Uric Acid Calcium Phosphorus Magnesium Iron TIBC AST ALT Total Creatine Kinase CK-MB (CK-2) Troponin T NT-Pro-B Natriuret Pep Total Protein Albumin Triglycerides HDL Cholesterol Folate Urine WBC (Auto) Urine Creatinine Urine Total Protein Vancomycin Trough 06/09/19 06/09/19 06/09/19 12:07 18:32 23:51 WBC RBC Hgb Hct MCV MCH MCHC RDW Plt Count Lymph % (Auto) [place] % (Auto) Eos % (Auto) Lymph # [place] # Eos # Seg Neutrophils % Seg Neuts % (Manual) Lymphocytes % (Manual) Monocytes % (Manual) Eosinophils % (Manual) Nucleated RBC % Seg Neutrophils # Seg Neutrophils # Man Lymphocytes # (Manual) Monocytes # (Manual) Eosinophils # (Manual) PT INR APTT Fibrinogen POC ABG pH ABG pH POC ABG pCO2 POC ABG pO2 ABG pO2 ABG HCO3 ABG O2 Saturation ABG Base Excess ABG Hemoglobin Oxyhemoglobin Sodium Potassium Chloride Carbon Dioxide BUN Creatinine Glucose POC Glucose 117 H 169 H 147 H Uric Acid Calcium Phosphorus Magnesium Iron TIBC AST ALT Total Creatine Kinase CK-MB (CK-2) Troponin T NT-Pro-B Natriuret Pep Total Protein Albumin Triglycerides HDL Cholesterol Folate Urine WBC (Auto) Urine Creatinine Urine Total Protein Vancomycin Trough 06/10/19 06/10/19 06/10/19 05:45 05:45 06:01 WBC 14.6 H RBC Hgb 9.9 L Hct 32.2 L MCV MCH 27 L MCHC 31 L RDW 19.6 H Plt Count Lymph % (Auto) 10.5 L [place] % (Auto) 9.4 H Eos % (Auto) Lymph # [place] # 1.4 H Eos # Seg Neutrophils % 79.9 H Seg Neuts % (Manual) Lymphocytes % (Manual) Monocytes % (Manual) Eosinophils % (Manual) Nucleated RBC % Seg Neutrophils # 11.7 H Seg Neutrophils # Man Lymphocytes # (Manual) Monocytes # (Manual) Eosinophils # (Manual) PT INR APTT Fibrinogen POC ABG pH ABG pH POC ABG pCO2 POC ABG pO2 ABG pO2 ABG HCO3 ABG O2 Saturation ABG Base Excess ABG Hemoglobin Oxyhemoglobin Sodium 150 H Potassium Chloride 108.3 H Carbon Dioxide BUN 49 H Creatinine Glucose 172 H POC Glucose 165 H Uric Acid Calcium Phosphorus Magnesium 1.40 L Iron TIBC AST ALT Total Creatine Kinase CK-MB (CK-2) Troponin T NT-Pro-B Natriuret Pep Total Protein Albumin Triglycerides HDL Cholesterol Folate Urine WBC (Auto) Urine Creatinine Urine Total Protein Vancomycin Trough 06/10/19 06/10/19 06/11/19 12:11 18:30 00:02 WBC RBC Hgb Hct MCV MCH MCHC RDW Plt Count Lymph % (Auto) [place] % (Auto) Eos % (Auto) Lymph # [place] # Eos # Seg Neutrophils % Seg Neuts % (Manual) Lymphocytes % (Manual) Monocytes % (Manual) Eosinophils % (Manual) Nucleated RBC % Seg Neutrophils # Seg Neutrophils # Man Lymphocytes # (Manual) Monocytes # (Manual) Eosinophils # (Manual) PT INR APTT Fibrinogen POC ABG pH ABG pH POC ABG pCO2 POC ABG pO2 ABG pO2 ABG HCO3 ABG O2 Saturation ABG Base Excess ABG Hemoglobin Oxyhemoglobin Sodium Potassium Chloride Carbon Dioxide BUN Creatinine Glucose POC Glucose 150 H 154 H 130 H Uric Acid Calcium Phosphorus Magnesium Iron TIBC AST ALT Total Creatine Kinase CK-MB (CK-2) Troponin T NT-Pro-B Natriuret Pep Total Protein Albumin Triglycerides HDL Cholesterol Folate Urine WBC (Auto) Urine Creatinine Urine Total Protein Vancomycin Trough 06/11/19 06/11/19 06/11/19 05:33 08:34 12:33 WBC RBC Hgb Hct MCV MCH MCHC RDW Plt Count Lymph % (Auto) [place] % (Auto) Eos % (Auto) Lymph # [place] # Eos # Seg Neutrophils % Seg Neuts % (Manual) Lymphocytes % (Manual) Monocytes % (Manual) Eosinophils % (Manual) Nucleated RBC % Seg Neutrophils # Seg Neutrophils # Man Lymphocytes # (Manual) Monocytes # (Manual) Eosinophils # (Manual) PT INR APTT Fibrinogen POC ABG pH ABG pH POC ABG pCO2 POC ABG pO2 ABG pO2 ABG HCO3 ABG O2 Saturation ABG Base Excess ABG Hemoglobin Oxyhemoglobin Sodium 154 H Potassium Chloride 111.6 H Carbon Dioxide BUN 41 H Creatinine Glucose 147 H POC Glucose 183 H 185 H Uric Acid Calcium Phosphorus Magnesium Iron TIBC AST ALT Total Creatine Kinase CK-MB (CK-2) Troponin T NT-Pro-B Natriuret Pep Total Protein Albumin Triglycerides HDL Cholesterol Folate Urine WBC (Auto) Urine Creatinine Urine Total Protein Vancomycin Trough 06/11/19 06/11/19 06/12/19 18:22 23:46 03:21 WBC 11.9 H RBC 3.61 L Hgb 9.9 L Hct 31.7 L MCV MCH 27 L MCHC 31 L RDW 19.3 H Plt Count Lymph % (Auto) 10.6 L [place] % (Auto) 8.6 H Eos % (Auto) Lymph # [place] # 1.0 H Eos # Seg Neutrophils % 80.6 H Seg Neuts % (Manual) Lymphocytes % (Manual) Monocytes % (Manual) Eosinophils % (Manual) Nucleated RBC % Seg Neutrophils # 9.6 H Seg Neutrophils # Man Lymphocytes # (Manual) Monocytes # (Manual) Eosinophils # (Manual) PT INR APTT Fibrinogen POC ABG pH ABG pH POC ABG pCO2 POC ABG pO2 ABG pO2 ABG HCO3 ABG O2 Saturation ABG Base Excess ABG Hemoglobin Oxyhemoglobin Sodium Potassium Chloride Carbon Dioxide BUN Creatinine Glucose POC Glucose 158 H 182 H Uric Acid Calcium Phosphorus Magnesium Iron TIBC AST ALT Total Creatine Kinase CK-MB (CK-2) Troponin T NT-Pro-B Natriuret Pep Total Protein Albumin Triglycerides HDL Cholesterol Folate Urine WBC (Auto) Urine Creatinine Urine Total Protein Vancomycin Trough 06/12/19 06/12/19 06/12/19 03:21 06:04 11:28 WBC RBC Hgb Hct MCV MCH MCHC RDW Plt Count Lymph % (Auto) [place] % (Auto) Eos % (Auto) Lymph # [place] # Eos # Seg Neutrophils % Seg Neuts % (Manual) Lymphocytes % (Manual) Monocytes % (Manual) Eosinophils % (Manual) Nucleated RBC % Seg Neutrophils # Seg Neutrophils # Man Lymphocytes # (Manual) Monocytes # (Manual) Eosinophils # (Manual) PT INR APTT Fibrinogen POC ABG pH ABG pH POC ABG pCO2 POC ABG pO2 ABG pO2 ABG HCO3 ABG O2 Saturation ABG Base Excess ABG Hemoglobin Oxyhemoglobin Sodium 148 H Potassium Chloride 107.3 H Carbon Dioxide BUN 34 H Creatinine 0.7 L Glucose 194 H POC Glucose 133 H 167 H Uric Acid Calcium Phosphorus Magnesium 1.40 L Iron TIBC AST ALT Total Creatine Kinase CK-MB (CK-2) Troponin T NT-Pro-B Natriuret Pep Total Protein Albumin Triglycerides HDL Cholesterol Folate Urine WBC (Auto) Urine Creatinine Urine Total Protein Vancomycin Trough 06/12/19 06/12/19 06/13/19 18:47 21:27 00:04 WBC RBC Hgb Hct MCV MCH MCHC RDW Plt Count Lymph % (Auto) [place] % (Auto) Eos % (Auto) Lymph # [place] # Eos # Seg Neutrophils % Seg Neuts % (Manual) Lymphocytes % (Manual) Monocytes % (Manual) Eosinophils % (Manual) Nucleated RBC % Seg Neutrophils # Seg Neutrophils # Man Lymphocytes # (Manual) Monocytes # (Manual) Eosinophils # (Manual) PT INR APTT Fibrinogen POC ABG pH ABG pH POC ABG pCO2 POC ABG pO2 ABG pO2 ABG HCO3 ABG O2 Saturation ABG Base Excess ABG Hemoglobin Oxyhemoglobin Sodium Potassium Chloride Carbon Dioxide BUN Creatinine Glucose POC Glucose 210 H 263 H 248 H Uric Acid Calcium Phosphorus Magnesium Iron TIBC AST ALT Total Creatine Kinase CK-MB (CK-2) Troponin T NT-Pro-B Natriuret Pep Total Protein Albumin Triglycerides HDL Cholesterol Folate Urine WBC (Auto) Urine Creatinine Urine Total Protein Vancomycin Trough 06/13/19 06/13/19 06/13/19 04:32 05:46 13:30 WBC RBC Hgb Hct MCV MCH MCHC RDW Plt Count Lymph % (Auto) [place] % (Auto) Eos % (Auto) Lymph # [place] # Eos # Seg Neutrophils % Seg Neuts % (Manual) Lymphocytes % (Manual) Monocytes % (Manual) Eosinophils % (Manual) Nucleated RBC % Seg Neutrophils # Seg Neutrophils # Man Lymphocytes # (Manual) Monocytes # (Manual) Eosinophils # (Manual) PT INR APTT Fibrinogen POC ABG pH ABG pH POC ABG pCO2 POC ABG pO2 ABG pO2 ABG HCO3 ABG O2 Saturation ABG Base Excess ABG Hemoglobin Oxyhemoglobin Sodium Potassium Chloride Carbon Dioxide BUN 27 H Creatinine 0.7 L Glucose 253 H POC Glucose 201 H 241 H Uric Acid Calcium Phosphorus Magnesium Iron TIBC AST ALT Total Creatine Kinase CK-MB (CK-2) Troponin T NT-Pro-B Natriuret Pep Total Protein Albumin Triglycerides HDL Cholesterol Folate Urine WBC (Auto) Urine Creatinine Urine Total Protein Vancomycin Trough 06/13/19 06/13/19 06/14/19 17:33 23:49 04:50 WBC RBC Hgb Hct MCV MCH MCHC RDW Plt Count Lymph % (Auto) [place] % (Auto) Eos % (Auto) Lymph # [place] # Eos # Seg Neutrophils % Seg Neuts % (Manual) Lymphocytes % (Manual) Monocytes % (Manual) Eosinophils % (Manual) Nucleated RBC % Seg Neutrophils # Seg Neutrophils # Man Lymphocytes # (Manual) Monocytes # (Manual) Eosinophils # (Manual) PT INR APTT Fibrinogen POC ABG pH ABG pH POC ABG pCO2 POC ABG pO2 ABG pO2 ABG HCO3 ABG O2 Saturation ABG Base Excess ABG Hemoglobin Oxyhemoglobin Sodium Potassium Chloride Carbon Dioxide BUN 37 H Creatinine Glucose 256 H POC Glucose 264 H 236 H Uric Acid Calcium Phosphorus Magnesium Iron TIBC AST ALT Total Creatine Kinase CK-MB (CK-2) Troponin T NT-Pro-B Natriuret Pep Total Protein Albumin Triglycerides HDL Cholesterol Folate Urine WBC (Auto) Urine Creatinine Urine Total Protein Vancomycin Trough 06/14/19 06/14/19 06/14/19 05:26 12:31 18:32 WBC RBC Hgb Hct MCV MCH MCHC RDW Plt Count Lymph % (Auto) [place] % (Auto) Eos % (Auto) Lymph # [place] # Eos # Seg Neutrophils % Seg Neuts % (Manual) Lymphocytes % (Manual) Monocytes % (Manual) Eosinophils % (Manual) Nucleated RBC % Seg Neutrophils # Seg Neutrophils # Man Lymphocytes # (Manual) Monocytes # (Manual) Eosinophils # (Manual) PT INR APTT Fibrinogen POC ABG pH ABG pH POC ABG pCO2 POC ABG pO2 ABG pO2 ABG HCO3 ABG O2 Saturation ABG Base Excess ABG Hemoglobin Oxyhemoglobin Sodium Potassium Chloride Carbon Dioxide BUN Creatinine Glucose POC Glucose 239 H 116 H 247 H Uric Acid Calcium Phosphorus Magnesium Iron TIBC AST ALT Total Creatine Kinase CK-MB (CK-2) Troponin T NT-Pro-B Natriuret Pep Total Protein Albumin Triglycerides HDL Cholesterol Folate Urine WBC (Auto) Urine Creatinine Urine Total Protein Vancomycin Trough 06/14/19 06/15/19 06/15/19 23:57 04:05 05:55 WBC RBC Hgb Hct MCV MCH MCHC RDW Plt Count Lymph % (Auto) [place] % (Auto) Eos % (Auto) Lymph # [place] # Eos # Seg Neutrophils % Seg Neuts % (Manual) Lymphocytes % (Manual) Monocytes % (Manual) Eosinophils % (Manual) Nucleated RBC % Seg Neutrophils # Seg Neutrophils # Man Lymphocytes # (Manual) Monocytes # (Manual) Eosinophils # (Manual) PT INR APTT Fibrinogen POC ABG pH ABG pH POC ABG pCO2 POC ABG pO2 ABG pO2 ABG HCO3 ABG O2 Saturation ABG Base Excess ABG Hemoglobin Oxyhemoglobin Sodium Potassium Chloride Carbon Dioxide BUN 46 H Creatinine 0.7 L Glucose 265 H POC Glucose 206 H 265 H Uric Acid Calcium Phosphorus Magnesium Iron TIBC AST ALT Total Creatine Kinase CK-MB (CK-2) Troponin T NT-Pro-B Natriuret Pep Total Protein Albumin Triglycerides HDL Cholesterol Folate Urine WBC (Auto) Urine Creatinine Urine Total Protein Vancomycin Trough 06/15/19 06/15/19 06/15/19 12:08 18:45 23:41 WBC RBC Hgb Hct MCV MCH MCHC RDW Plt Count Lymph % (Auto) [place] % (Auto) Eos % (Auto) Lymph # [place] # Eos # Seg Neutrophils % Seg Neuts % (Manual) Lymphocytes % (Manual) Monocytes % (Manual) Eosinophils % (Manual) Nucleated RBC % Seg Neutrophils # Seg Neutrophils # Man Lymphocytes # (Manual) Monocytes # (Manual) Eosinophils # (Manual) PT INR APTT Fibrinogen POC ABG pH ABG pH POC ABG pCO2 POC ABG pO2 ABG pO2 ABG HCO3 ABG O2 Saturation ABG Base Excess ABG Hemoglobin Oxyhemoglobin Sodium Potassium Chloride Carbon Dioxide BUN Creatinine Glucose POC Glucose 224 H 177 H 193 H Uric Acid Calcium Phosphorus Magnesium Iron TIBC AST ALT Total Creatine Kinase CK-MB (CK-2) Troponin T NT-Pro-B Natriuret Pep Total Protein Albumin Triglycerides HDL Cholesterol Folate Urine WBC (Auto) Urine Creatinine Urine Total Protein Vancomycin Trough 06/16/19 06/16/19 06/16/19 05:00 05:00 05:40 WBC 11.9 H RBC 3.24 L Hgb 9.0 L Hct 29.0 L MCV MCH MCHC 31 L RDW 18.6 H Plt Count 111 L Lymph % (Auto) [place] % (Auto) Eos % (Auto) Lymph # [place] # Eos # Seg Neutrophils % Seg Neuts % (Manual) 92.0 H Lymphocytes % (Manual) 2.0 L Monocytes % (Manual) Eosinophils % (Manual) Nucleated RBC % Seg Neutrophils # Seg Neutrophils # Man 10.9 H Lymphocytes # (Manual) 0.2 L Monocytes # (Manual) Eosinophils # (Manual) PT INR APTT Fibrinogen POC ABG pH ABG pH POC ABG pCO2 POC ABG pO2 ABG pO2 ABG HCO3 ABG O2 Saturation ABG Base Excess ABG Hemoglobin Oxyhemoglobin Sodium Potassium Chloride Carbon Dioxide 33 H BUN 49 H Creatinine 0.7 L Glucose 264 H POC Glucose 247 H Uric Acid Calcium Phosphorus Magnesium Iron TIBC AST ALT Total Creatine Kinase CK-MB (CK-2) Troponin T NT-Pro-B Natriuret Pep Total Protein Albumin Triglycerides HDL Cholesterol Folate Urine WBC (Auto) Urine Creatinine Urine Total Protein Vancomycin Trough 06/16/19 06/16/19 06/16/19 12:03 17:11 18:11 WBC RBC Hgb Hct MCV MCH MCHC RDW Plt Count Lymph % (Auto) [place] % (Auto) Eos % (Auto) Lymph # [place] # Eos # Seg Neutrophils % Seg Neuts % (Manual) Lymphocytes % (Manual) Monocytes % (Manual) Eosinophils % (Manual) Nucleated RBC % Seg Neutrophils # Seg Neutrophils # Man Lymphocytes # (Manual) Monocytes # (Manual) Eosinophils # (Manual) PT INR APTT Fibrinogen POC ABG pH ABG pH 7.289 L POC ABG pCO2 POC ABG pO2 ABG pO2 399.3 H ABG HCO3 30.1 H ABG O2 Saturation 99.6 H ABG Base Excess ABG Hemoglobin 8.6 L Oxyhemoglobin Sodium Potassium Chloride Carbon Dioxide BUN Creatinine Glucose POC Glucose 252 H 254 H Uric Acid Calcium Phosphorus Magnesium Iron TIBC AST ALT Total Creatine Kinase CK-MB (CK-2) Troponin T NT-Pro-B Natriuret Pep Total Protein Albumin Triglycerides HDL Cholesterol Folate Urine WBC (Auto) Urine Creatinine Urine Total Protein Vancomycin Trough 06/16/19 06/17/19 06/17/19 23:16 05:30 05:53 WBC RBC Hgb Hct MCV MCH MCHC RDW Plt Count Lymph % (Auto) [place] % (Auto) Eos % (Auto) Lymph # [place] # Eos # Seg Neutrophils % Seg Neuts % (Manual) Lymphocytes % (Manual) Monocytes % (Manual) Eosinophils % (Manual) Nucleated RBC % Seg Neutrophils # Seg Neutrophils # Man Lymphocytes # (Manual) Monocytes # (Manual) Eosinophils # (Manual) PT INR APTT Fibrinogen POC ABG pH ABG pH POC ABG pCO2 POC ABG pO2 ABG pO2 ABG HCO3 ABG O2 Saturation ABG Base Excess ABG Hemoglobin Oxyhemoglobin Sodium 147 H Potassium Chloride Carbon Dioxide 32 H BUN 60 H Creatinine Glucose 205 H POC Glucose 238 H 211 H Uric Acid Calcium Phosphorus Magnesium Iron TIBC AST ALT Total Creatine Kinase CK-MB (CK-2) Troponin T NT-Pro-B Natriuret Pep Total Protein Albumin Triglycerides HDL Cholesterol Folate Urine WBC (Auto) Urine Creatinine Urine Total Protein Vancomycin Trough 06/17/19 06/17/19 06/17/19 09:50 12:27 12:45 WBC RBC 2.79 L Hgb 8.2 L Hct 24.6 L MCV MCH MCHC RDW 18.5 H Plt Count 95 L Lymph % (Auto) [place] % (Auto) Eos % (Auto) Lymph # [place] # Eos # Seg Neutrophils % Seg Neuts % (Manual) Lymphocytes % (Manual) Monocytes % (Manual) Eosinophils % (Manual) Nucleated RBC % Seg Neutrophils # Seg Neutrophils # Man Lymphocytes # (Manual) Monocytes # (Manual) Eosinophils # (Manual) PT INR APTT Fibrinogen 194 L POC ABG pH ABG pH POC ABG pCO2 POC ABG pO2 ABG pO2 ABG HCO3 ABG O2 Saturation ABG Base Excess ABG Hemoglobin Oxyhemoglobin Sodium Potassium Chloride Carbon Dioxide BUN Creatinine Glucose POC Glucose 224 H Uric Acid Calcium Phosphorus Magnesium Iron TIBC AST ALT Total Creatine Kinase CK-MB (CK-2) Troponin T NT-Pro-B Natriuret Pep Total Protein Albumin Triglycerides HDL Cholesterol Folate Urine WBC (Auto) Urine Creatinine Urine Total Protein Vancomycin Trough 06/17/19 06/17/19 06/17/19 18:41 22:00 23:23 WBC RBC Hgb Hct MCV MCH MCHC RDW Plt Count Lymph % (Auto) [place] % (Auto) Eos % (Auto) Lymph # [place] # Eos # Seg Neutrophils % Seg Neuts % (Manual) Lymphocytes % (Manual) Monocytes % (Manual) Eosinophils % (Manual) Nucleated RBC % Seg Neutrophils # Seg Neutrophils # Man Lymphocytes # (Manual) Monocytes # (Manual) Eosinophils # (Manual) PT INR APTT Fibrinogen POC ABG pH ABG pH POC ABG pCO2 POC ABG pO2 ABG pO2 ABG HCO3 ABG O2 Saturation ABG Base Excess ABG Hemoglobin Oxyhemoglobin Sodium Potassium Chloride Carbon Dioxide BUN Creatinine Glucose POC Glucose 198 H 166 H 171 H Uric Acid Calcium Phosphorus Magnesium Iron TIBC AST ALT Total Creatine Kinase CK-MB (CK-2) Troponin T NT-Pro-B Natriuret Pep Total Protein Albumin Triglycerides HDL Cholesterol Folate Urine WBC (Auto) Urine Creatinine Urine Total Protein Vancomycin Trough 06/17/19 06/18/19 06/18/19 Unknown 03:50 04:25 WBC RBC Hgb Hct MCV MCH MCHC RDW Plt Count Lymph % (Auto) [place] % (Auto) Eos % (Auto) Lymph # [place] # Eos # Seg Neutrophils % Seg Neuts % (Manual) Lymphocytes % (Manual) Monocytes % (Manual) Eosinophils % (Manual) Nucleated RBC % Seg Neutrophils # Seg Neutrophils # Man Lymphocytes # (Manual) Monocytes # (Manual) Eosinophils # (Manual) PT INR APTT Fibrinogen POC ABG pH ABG pH 7.564 H 7.499 H POC ABG pCO2 POC ABG pO2 ABG pO2 238.6 H 130.8 H ABG HCO3 33.6 H 32.5 H ABG O2 Saturation 99.4 H ABG Base Excess 10.6 H 8.5 H ABG Hemoglobin 7.9 L 8.8 L Oxyhemoglobin Sodium 151 H Potassium 3.4 L Chloride Carbon Dioxide BUN 66 H Creatinine Glucose 189 H POC Glucose Uric Acid Calcium Phosphorus Magnesium Iron TIBC AST ALT Total Creatine Kinase CK-MB (CK-2) Troponin T NT-Pro-B Natriuret Pep Total Protein Albumin Triglycerides HDL Cholesterol Folate Urine WBC (Auto) Urine Creatinine Urine Total Protein Vancomycin Trough 06/18/19 06/18/19 06/18/19 05:25 05:27 11:50 WBC RBC 2.61 L Hgb 7.4 L Hct 22.9 L MCV MCH MCHC RDW 19.9 H Plt Count 81 L Lymph % (Auto) 12.9 L [place] % (Auto) 7.7 H Eos % (Auto) Lymph # 1.1 L [place] # Eos # Seg Neutrophils % 77.4 H Seg Neuts % (Manual) Lymphocytes % (Manual) Monocytes % (Manual) Eosinophils % (Manual) Nucleated RBC % Seg Neutrophils # Seg Neutrophils # Man Lymphocytes # (Manual) Monocytes # (Manual) Eosinophils # (Manual) PT INR APTT Fibrinogen POC ABG pH ABG pH POC ABG pCO2 POC ABG pO2 ABG pO2 ABG HCO3 ABG O2 Saturation ABG Base Excess ABG Hemoglobin Oxyhemoglobin Sodium Potassium Chloride Carbon Dioxide BUN Creatinine Glucose POC Glucose 186 H 263 H Uric Acid Calcium Phosphorus Magnesium Iron TIBC AST ALT Total Creatine Kinase CK-MB (CK-2) Troponin T NT-Pro-B Natriuret Pep Total Protein Albumin Triglycerides HDL Cholesterol Folate Urine WBC (Auto) Urine Creatinine Urine Total Protein Vancomycin Trough 06/18/19 06/18/19 06/18/19 18:35 21:31 23:21 WBC RBC Hgb Hct MCV MCH MCHC RDW Plt Count Lymph % (Auto) [place] % (Auto) Eos % (Auto) Lymph # [place] # Eos # Seg Neutrophils % Seg Neuts % (Manual) Lymphocytes % (Manual) Monocytes % (Manual) Eosinophils % (Manual) Nucleated RBC % Seg Neutrophils # Seg Neutrophils # Man Lymphocytes # (Manual) Monocytes # (Manual) Eosinophils # (Manual) PT INR APTT Fibrinogen POC ABG pH ABG pH POC ABG pCO2 POC ABG pO2 ABG pO2 ABG HCO3 ABG O2 Saturation ABG Base Excess ABG Hemoglobin Oxyhemoglobin Sodium Potassium Chloride Carbon Dioxide BUN Creatinine Glucose POC Glucose 154 H 186 H 202 H Uric Acid Calcium Phosphorus Magnesium Iron TIBC AST ALT Total Creatine Kinase CK-MB (CK-2) Troponin T NT-Pro-B Natriuret Pep Total Protein Albumin Triglycerides HDL Cholesterol Folate Urine WBC (Auto) Urine Creatinine Urine Total Protein Vancomycin Trough 06/19/19 06/19/19 06/19/19 03:18 04:30 04:30 WBC RBC 2.65 L Hgb 7.5 L Hct 23.1 L MCV MCH MCHC RDW 19.4 H Plt Count 74 L Lymph % (Auto) 8.8 L [place] % (Auto) 9.4 H Eos % (Auto) 4.7 H Lymph # 0.6 L [place] # Eos # Seg Neutrophils % 76.6 H Seg Neuts % (Manual) Lymphocytes % (Manual) Monocytes % (Manual) Eosinophils % (Manual) Nucleated RBC % Seg Neutrophils # Seg Neutrophils # Man Lymphocytes # (Manual) Monocytes # (Manual) Eosinophils # (Manual) PT INR APTT Fibrinogen POC ABG pH ABG pH 7.452 H POC ABG pCO2 POC ABG pO2 ABG pO2 105.5 H ABG HCO3 32.3 H ABG O2 Saturation ABG Base Excess 7.6 H ABG Hemoglobin 6.9 L Oxyhemoglobin Sodium 150 H Potassium 3.3 L Chloride Carbon Dioxide 31 H BUN 56 H Creatinine Glucose 197 H POC Glucose Uric Acid Calcium Phosphorus Magnesium Iron TIBC AST ALT Total Creatine Kinase CK-MB (CK-2) Troponin T NT-Pro-B Natriuret Pep Total Protein Albumin Triglycerides 210 H HDL Cholesterol Folate Urine WBC (Auto) Urine Creatinine Urine Total Protein Vancomycin Trough 06/19/19 06/19/19 06/19/19 05:24 12:18 18:55 WBC RBC Hgb Hct MCV MCH MCHC RDW Plt Count Lymph % (Auto) [place] % (Auto) Eos % (Auto) Lymph # [place] # Eos # Seg Neutrophils % Seg Neuts % (Manual) Lymphocytes % (Manual) Monocytes % (Manual) Eosinophils % (Manual) Nucleated RBC % Seg Neutrophils # Seg Neutrophils # Man Lymphocytes # (Manual) Monocytes # (Manual) Eosinophils # (Manual) PT INR APTT Fibrinogen POC ABG pH ABG pH POC ABG pCO2 POC ABG pO2 ABG pO2 ABG HCO3 ABG O2 Saturation ABG Base Excess ABG Hemoglobin Oxyhemoglobin Sodium Potassium Chloride Carbon Dioxide BUN Creatinine Glucose POC Glucose 176 H 260 H 192 H Uric Acid Calcium Phosphorus Magnesium Iron TIBC AST ALT Total Creatine Kinase CK-MB (CK-2) Troponin T NT-Pro-B Natriuret Pep Total Protein Albumin Triglycerides HDL Cholesterol Folate Urine WBC (Auto) Urine Creatinine Urine Total Protein Vancomycin Trough 06/19/19 06/19/19 06/20/19 22:57 23:46 04:40 WBC RBC 2.79 L Hgb 7.9 L Hct 24.3 L MCV MCH MCHC RDW 19.6 H Plt Count 92 L Lymph % (Auto) 9.2 L [place] % (Auto) 12.0 H Eos % (Auto) 5.2 H Lymph # 0.9 L [place] # 1.2 H Eos # 0.5 H Seg Neutrophils % 73.3 H Seg Neuts % (Manual) Lymphocytes % (Manual) Monocytes % (Manual) Eosinophils % (Manual) Nucleated RBC % Seg Neutrophils # Seg Neutrophils # Man Lymphocytes # (Manual) Monocytes # (Manual) Eosinophils # (Manual) PT INR APTT Fibrinogen POC ABG pH ABG pH POC ABG pCO2 POC ABG pO2 ABG pO2 ABG HCO3 ABG O2 Saturation ABG Base Excess ABG Hemoglobin Oxyhemoglobin Sodium Potassium Chloride Carbon Dioxide BUN Creatinine Glucose POC Glucose 145 H 216 H Uric Acid Calcium Phosphorus Magnesium Iron TIBC AST ALT Total Creatine Kinase CK-MB (CK-2) Troponin T NT-Pro-B Natriuret Pep Total Protein Albumin Triglycerides HDL Cholesterol Folate Urine WBC (Auto) Urine Creatinine Urine Total Protein Vancomycin Trough 06/20/19 06/20/19 06/20/19 04:40 05:40 05:54 WBC RBC Hgb Hct MCV MCH MCHC RDW Plt Count Lymph % (Auto) [place] % (Auto) Eos % (Auto) Lymph # [place] # Eos # Seg Neutrophils % Seg Neuts % (Manual) Lymphocytes % (Manual) Monocytes % (Manual) Eosinophils % (Manual) Nucleated RBC % Seg Neutrophils # Seg Neutrophils # Man Lymphocytes # (Manual) Monocytes # (Manual) Eosinophils # (Manual) PT INR APTT Fibrinogen POC ABG pH ABG pH 7.455 H POC ABG pCO2 POC ABG pO2 ABG pO2 60.9 L ABG HCO3 30.3 H ABG O2 Saturation 92.3 L ABG Base Excess 5.8 H ABG Hemoglobin 8.2 L Oxyhemoglobin 90.1 L Sodium Potassium 3.5 L Chloride Carbon Dioxide BUN 59 H Creatinine Glucose 200 H POC Glucose 190 H Uric Acid Calcium Phosphorus Magnesium 1.60 L Iron TIBC AST ALT Total Creatine Kinase CK-MB (CK-2) Troponin T NT-Pro-B Natriuret Pep Total Protein Albumin Triglycerides HDL Cholesterol Folate Urine WBC (Auto) Urine Creatinine Urine Total Protein Vancomycin Trough 06/20/19 06/20/19 06/20/19 09:12 09:12 12:24 WBC RBC Hgb Hct MCV MCH MCHC RDW Plt Count Lymph % (Auto) [place] % (Auto) Eos % (Auto) Lymph # [place] # Eos # Seg Neutrophils % Seg Neuts % (Manual) Lymphocytes % (Manual) Monocytes % (Manual) Eosinophils % (Manual) Nucleated RBC % Seg Neutrophils # Seg Neutrophils # Man Lymphocytes # (Manual) Monocytes # (Manual) Eosinophils # (Manual) PT INR APTT Fibrinogen POC ABG pH ABG pH POC ABG pCO2 POC ABG pO2 ABG pO2 ABG HCO3 ABG O2 Saturation ABG Base Excess ABG Hemoglobin Oxyhemoglobin Sodium Potassium Chloride Carbon Dioxide BUN Creatinine Glucose POC Glucose 225 H Uric Acid Calcium Phosphorus Magnesium Iron 45 L TIBC 110 L AST ALT Total Creatine Kinase CK-MB (CK-2) Troponin T NT-Pro-B Natriuret Pep Total Protein Albumin Triglycerides HDL Cholesterol Folate 7.01 L Urine WBC (Auto) Urine Creatinine Urine Total Protein Vancomycin Trough Chest x-ray: report reviewed, image reviewed
[2019-06-20] MEDS: INSULIN GLARGINE 100 UNITS/ML SUB-Q SCH (21:45)
[2019-06-20] MEDS: VALSARTAN 40 MG TAB FEEDTUBE SCH (22:38)
[2019-06-21] MEDS: DEXTROSE 5% IN WATER 1,000 ML IV SCH (01:54)
--- NOTE | 2019-06-21 02:39 | XRay Report ---
CHEST 1 VIEW INDICATION / CLINICAL INFORMATION: follow up respiratory failure. COMPARISON: 06/20/2019 FINDINGS: SUPPORT DEVICES: Unchanged HEART / MEDIASTINUM: Unchanged LUNGS / PLEURA: Lungs appear unchanged. No pneumothorax. ADDITIONAL FINDINGS: No significant additional findings. IMPRESSION: 1. No significant change. Signer Name: Bony Israel MD Signed: 06/21/2019 2:35 AM Workstation Name: [email or web address]
[2019-06-21 04:14] LABS: ABG Base Excess 3.1 mmol/L (-2.0-3.0); ABG HCO3 26.8 mmol/L (20.0-26.0); ABG Methemoglobin 0.5 % (0.0-1.5); ABG Oxygen Saturation 99.1 % (95.0-99.0); ABG PCO2 37.1 mm Hg; ABG PH 7.476 pH Units (7.350-7.450)
[2019-06-21 05:55] LABS: Hematocrit 26.2 % (35.5-45.6); Hemoglobin 8.5 gm/dl (11.8-15.2); Mean Corpuscular HGB Conc 32 % (32-34); Mean Corpuscular Volume 86 fl (84-94); Platelet Count 131 K/mm3 (140-440); Red Blood Count 3.03 M/mm3 (3.65-5.03); Red Cell Distribution Width 19.4 % (13.2-15.2)
[2019-06-21 06:14] LABS: BUN/Creatinine Ratio 53; Blood Urea Nitrogen 69 mg/dL (9-20); Calcium 9.1 mg/dL (8.4-10.2); Hemolysis Index 1
[2019-06-21 07:17] LABS: Total Cells Counted 100
[2019-06-21 07:18] LABS: Band Neutrophils # (Manual) 0.1 K/mm3; Basophils % (Manual) 0 % (0.0-1.8)
[2019-06-21 07:19] LABS: Anisocytosis 1+; Stomatocytes Rare; Tear Drop Cells Rare
[2019-06-21 07:20] LABS: Platelet Estimate Consistent w Auto
--- NOTE | 2019-06-21 08:22 | Hem/Onc Progress Note ---
Assessment and Plan 1. Thrombocytopenia. This may be medication related. The patient had received Lovenox, HIT test has been ordered. Doppler is negative. Other medication like antibiotics may also have a role in this pharmacy evaluation of trend of medications will help. 2. Anemia. deficiency investigations. 3. Short of breath, intubated. 4. History of hypertension. 5. Status post cardiac arrest. 6. Renal impairment, acute tubular necrosis at one time, dialysis on hold. 7. Electrolyte imbalance. 8. I will follow the patient during inpatient stay. 06/21 - d/w Pharmacy reg meds and Low plt - Patient Problems (1) Thrombocytopenia Current Visit: Yes Status: Acute Subjective Date of service: 06/21/19 Principal diagnosis: LOW PLT Interval history: still on vent Objective - Exam Narrative Exam: Pain - n/a - pt on vent General appearance - vent Performance status complete dependence for care Eyes - no icterus ENT - no bleeding LNs cervical not palpable Neck - no LN Respiratory Normal - on o2 Breath sounds - CTA anteriorly CVS S1 S2 + Extremities edema General GI Soft Rectal deferred male - deferred Skin warm Musculoskeletal - moves limbs spontaneously Neurologically not verbal - Constitutional Vitals: Last Vital Signs Temp 99.1 F 06/21/19 08:00 Pulse 98 H 06/21/19 06:30 Resp 17 06/21/19 06:30 BP 130/71 06/21/19 06:30 Pulse Ox 100 06/21/19 06:15 - Labs Lab Results: Laboratory Results - last 24 hr 06/20/19 06/20/19 06/20/19 09:12 09:12 09:12 WBC RBC Hgb Hct MCV MCH MCHC RDW Plt Count Add Manual Diff Total Counted Seg Neuts % (Manual) Band Neutrophils % Lymphocytes % (Manual) Reactive Lymphs % (Man) Monocytes % (Manual) Eosinophils % (Manual) Basophils % (Manual) Metamyelocytes % Myelocytes % Promyelocytes % Blast Cells % Nucleated RBC % Seg Neutrophils # Man Band Neutrophils # Lymphocytes # (Manual) Abs React Lymphs (Man) Monocytes # (Manual) Eosinophils # (Manual) Basophils # (Manual) Metamyelocytes # Myelocytes # Promyelocytes # Blast Cells # WBC Morphology Hypersegmented Neuts Hyposegmented Neuts Hypogranular Neuts Smudge Cells Toxic Granulation Toxic Vacuolation Dohle Bodies Pelger-Huet Anomaly Renea Rods Platelet Estimate Clumped Platelets Plt Clumps, EDTA Large Platelets Giant Platelets Platelet Satelliting Plt Morphology Comment RBC Morphology Dimorphic RBCs Polychromasia Hypochromasia Poikilocytosis Anisocytosis Microcytosis Macrocytosis Spherocytes Pappenheimer Bodies Sickle Cells Target Cells Tear Drop Cells Ovalocytes Stomatocytes Helmet Cells [place]ore Bodies [place] Rings [place] Cells Bite Cells Crenated Cell Elliptocytes Acanthocytes (Spur) Rouleaux Hemoglobin C Crystals Schistocytes Malaria parasites Syed Bodies Hem Pathologist Commnt ABG pH ABG pCO2 ABG pO2 ABG HCO3 ABG O2 Saturation ABG O2 Content ABG Base Excess ABG Hemoglobin ABG Carboxyhemoglobin ABG Methemoglobin Oxyhemoglobin FiO2 Sodium Potassium Chloride Carbon Dioxide Anion Gap BUN Creatinine Estimated GFR BUN/Creatinine Ratio Glucose POC Glucose Calcium Magnesium Iron 45 L TIBC 110 L Ferritin 315.2 Vitamin B12 353.0 Folate 06/20/19 06/20/19 06/20/19 09:12 12:24 17:42 WBC RBC Hgb Hct MCV MCH MCHC RDW Plt Count Add Manual Diff Total Counted Seg Neuts % (Manual) Band Neutrophils % Lymphocytes % (Manual) Reactive Lymphs % (Man) Monocytes % (Manual) Eosinophils % (Manual) Basophils % (Manual) Metamyelocytes % Myelocytes % Promyelocytes % Blast Cells % Nucleated RBC % Seg Neutrophils # Man Band Neutrophils # Lymphocytes # (Manual) Abs React Lymphs (Man) Monocytes # (Manual) Eosinophils # (Manual) Basophils # (Manual) Metamyelocytes # Myelocytes # Promyelocytes # Blast Cells # WBC Morphology Hypersegmented Neuts Hyposegmented Neuts Hypogranular Neuts Smudge Cells Toxic Granulation Toxic Vacuolation Dohle Bodies Pelger-Huet Anomaly Renea Rods Platelet Estimate Clumped Platelets Plt Clumps, EDTA Large Platelets Giant Platelets Platelet Satelliting Plt Morphology Comment RBC Morphology Dimorphic RBCs Polychromasia Hypochromasia Poikilocytosis Anisocytosis Microcytosis Macrocytosis Spherocytes Pappenheimer Bodies Sickle Cells Target Cells Tear Drop Cells Ovalocytes Stomatocytes Helmet Cells [place] Bodies [place] Rings [place] Cells Bite Cells Crenated Cell Elliptocytes Acanthocytes (Spur) Rouleaux Hemoglobin C Crystals Schistocytes Malaria parasites Syed Bodies Hem Pathologist Commnt ABG pH ABG pCO2 ABG pO2 ABG HCO3 ABG O2 Saturation ABG O2 Content ABG Base Excess ABG Hemoglobin ABG Carboxyhemoglobin ABG Methemoglobin Oxyhemoglobin FiO2 Sodium Potassium Chloride Carbon Dioxide Anion Gap BUN Creatinine Estimated GFR BUN/Creatinine Ratio Glucose POC Glucose 225 H 255 H Calcium Magnesium Iron TIBC Ferritin Vitamin B12 Folate 7.01 L 06/20/19 06/21/19 06/21/19 21:55 03:32 03:40 WBC RBC Hgb Hct MCV MCH MCHC RDW Plt Count Add Manual Diff Total Counted Seg Neuts % (Manual) Band Neutrophils % Lymphocytes % (Manual) Reactive Lymphs % (Man) Monocytes % (Manual) Eosinophils % (Manual) Basophils % (Manual) Metamyelocytes % Myelocytes % Promyelocytes % Blast Cells % Nucleated RBC % Seg Neutrophils # Man Band Neutrophils # Lymphocytes # (Manual) Abs React Lymphs (Man) Monocytes # (Manual) Eosinophils # (Manual) Basophils # (Manual) Metamyelocytes # Myelocytes # Promyelocytes # Blast Cells # WBC Morphology Hypersegmented Neuts Hyposegmented Neuts Hypogranular Neuts Smudge Cells Toxic Granulation Toxic Vacuolation Dohle Bodies Pelger-Huet Anomaly Renea Rods Platelet Estimate Clumped Platelets Plt Clumps, EDTA Large Platelets Giant Platelets Platelet Satelliting Plt Morphology Comment RBC Morphology Dimorphic RBCs Polychromasia Hypochromasia Poikilocytosis Anisocytosis Microcytosis Macrocytosis Spherocytes Pappenheimer Bodies Sickle Cells Target Cells Tear Drop Cells Ovalocytes Stomatocytes Helmet Cells [place] Bodies [place] Rings [place] Cells Bite Cells Crenated Cell Elliptocytes Acanthocytes (Spur) Rouleaux Hemoglobin C Crystals Schistocytes Malaria parasites Syed Bodies Hem Pathologist Commnt ABG pH 7.476 H ABG pCO2 37.1 ABG pO2 162.0 H ABG HCO3 26.8 H ABG O2 Saturation 99.1 H ABG O2 Content 12.0 ABG Base Excess 3.1 H ABG Hemoglobin 8.6 L ABG Carboxyhemoglobin 1.9 ABG Methemoglobin 0.5 Oxyhemoglobin 96.7 FiO2 25 Sodium Potassium Chloride Carbon Dioxide Anion Gap BUN Creatinine Estimated GFR BUN/Creatinine Ratio Glucose POC Glucose 218 H 202 H Calcium Magnesium Iron TIBC Ferritin Vitamin B12 Folate 06/21/19 06/21/19 05:20 05:20 WBC 12.8 H RBC 3.03 L Hgb 8.5 L Hct 26.2 L MCV 86 MCH 28 MCHC 32 RDW 19.4 H Plt Count 131 L Add Manual Diff Complete Total Counted 100 Seg Neuts % (Manual) 78.0 H Band Neutrophils % 1.0 Lymphocytes % (Manual) 5.0 L Reactive Lymphs % (Man) 0 Monocytes % (Manual) 11.0 H Eosinophils % (Manual) 4.0 Basophils % (Manual) 0 Metamyelocytes % 1.0 Myelocytes % 0 Promyelocytes % 0 Blast Cells % 0 Nucleated RBC % Not Reportable Seg Neutrophils # Man 10.0 H Band Neutrophils # 0.1 Lymphocytes # (Manual) 0.6 L Abs React Lymphs (Man) 0.0 Monocytes # (Manual) 1.4 H Eosinophils # (Manual) 0.5 H Basophils # (Manual) 0.0 Metamyelocytes # 0.1 Myelocytes # 0.0 Promyelocytes # 0.0 Blast Cells # 0.0 WBC Morphology Not Reportable Hypersegmented Neuts Not Reportable Hyposegmented Neuts Not Reportable Hypogranular Neuts Not Reportable Smudge Cells Not Reportable Toxic Granulation Not Reportable Toxic Vacuolation Not Reportable Dohle Bodies Not Reportable Pelger-Huet Anomaly Not Reportable Renea Rods Not Reportable Platelet Estimate Consistent w auto Clumped Platelets Not Reportable Plt Clumps, EDTA Not Reportable Large Platelets Not Reportable Giant Platelets Not Reportable Platelet Satelliting Not Reportable Plt Morphology Comment Not Reportable RBC Morphology Not Reportable Dimorphic RBCs Not Reportable Polychromasia Not Reportable Hypochromasia Not Reportable Poikilocytosis Not Reportable Anisocytosis 1+ Microcytosis Rare Macrocytosis Not Reportable Spherocytes Not Reportable Pappenheimer Bodies Not Reportable Sickle Cells Not Reportable Target Cells Not Reportable Tear Drop Cells Rare Ovalocytes Not Reportable Stomatocytes Rare Helmet Cells Not Reportable [place] Bodies Not Reportable [place] Rings Not Reportable [place] Cells Not Reportable Bite Cells Not Reportable Crenated Cell Not Reportable Elliptocytes Rare Acanthocytes (Spur) Not Reportable Rouleaux Not Reportable Hemoglobin C Crystals Not Reportable Schistocytes Not Reportable Malaria parasites Not Reportable Syed Bodies Not Reportable Hem Pathologist Commnt No ABG pH ABG pCO2 ABG pO2 ABG HCO3 ABG O2 Saturation ABG O2 Content ABG Base Excess ABG Hemoglobin ABG Carboxyhemoglobin ABG Methemoglobin Oxyhemoglobin FiO2 Sodium 141 Potassium 3.9 Chloride 97.7 L Carbon Dioxide 28 Anion Gap 19 BUN 69 H Creatinine 1.3 Estimated GFR > 60 BUN/Creatinine Ratio 53 Glucose 239 H POC Glucose Calcium 9.1 Magnesium 2.40 H Iron TIBC Ferritin Vitamin B12 Folate Medications & Allergies - Medications Allergies/Adverse Reactions: Allergies No Known Allergies Allergy (Verified 05/01/19 20:27) Home Medications: Home Medications Medication Instructions Recorded Confirmed Last Taken Type No Known Home Medications [No 05/03/19 05/03/19 Unknown History Reported Home Medications] Active Medications: Generic Name Dose Route Start Last Admin Trade Name Freq PRN Reason Stop Dose Admin Acetaminophen 650 mg 06/17/19 10:00 06/17/19 21:20 Tylenol PO 650 mg Q6H PRN Administration FOR TEMP >/=100.4 Lipase/Protease/Amylase 1 each 05/14/19 15:01 Pancreaztanvir Fletcher 10,500 Unit FEEDTUBE PRN PRN For Clogged Feeding Tube Dextrose 50 gm 05/01/19 20:24 D50w (25gm) Vial IV Q30MIN PRN Hypoglycemia Protocol Famotidine 20 mg 06/17/19 10:00 06/20/19 21:46 Pepcid PO 20 mg BID VICKEY Administration Ferrous Sulfate 308 mg 06/18/19 12:00 06/20/19 09:17 Ferrous Sulfate PO 308 mg QDAY VICKEY Administration Hydrophilic Ointment 1 applic 06/16/19 17:34 Vaseline Lip Therapy TP Q2HR PRN Dry Lips Propofol 1,000 mg in 100 mls @ 7.716 mls/hr 06/16/19 21:00 06/21/19 06:47 Diprivan 10 Mg/Ml IV 5 mcg/kg/min TITR VICKEY 7.716 mls/hr Administration Protocol 5 MCG/KG/MIN Fentanyl Citrate 2,000 mcg in 100 mls @ 12.86 mls/hr 06/17/19 14:00 Fentanyl Drip Premix IV TITR VICKEY Protocol 1 MCG/KG/HR Dextrose 1,000 mls @ 100 mls/hr 06/18/19 11:00 06/21/19 01:54 D5w IV 100 mls/hr DIRECT VICKEY Administration Insulin Glargine 20 units 06/20/19 22:00 06/20/19 21:45 Lantus SUB-Q 20 units QHS VICKEY Administration Insulin Human Lispro 0 unit 06/01/19 14:00 06/21/19 00:00 Humalog SUB-Q 4 unit Q6HR VICKEY Administration Protocol Labetalol HCl 10 mg 06/11/19 22:48 06/19/19 10:23 Labetalol IV 10 mg Q4H PRN Administration BP >170/105; hold for HR <60 Levetiracetam 750 mg 06/16/19 10:00 06/20/19 21:46 Keppra PO 750 mg BID [facility] Administration Methylprednisolone Sodium Succinate 20 mg 06/20/19 22:00 06/20/19 22:37 Solu-Medrol IV 20 mg Q12HR VICKEY Administration Multi-Ingred Cream/Lotion/Oil/Oint 1 applic 06/16/19 18:00 Artificial Tears Ophth Oint OU Q4HR PRN Dry Eye(s) Potassium Chloride 40 meq 06/19/19 10:00 06/20/19 09:19 Potassium Chloride FEEDTUBE 40 meq QDAY VICKEY Administration Simple Syrup 15 ml 05/14/19 15:01 Simple Syrup FEEDTUBE PRN PRN Hypoglycemia Simple Syrup 30 ml 05/14/19 15:01 Simple Syrup FEEDTUBE PRN PRN Hypoglycemia Sodium Bicarbonate 325 mg 05/14/19 15:01 Sodium Bicarbonate FEEDTUBE PRN PRN For Clogged Feeding Tube Valsartan 40 mg 06/20/19 21:36 06/20/19 22:38 Diovan FEEDTUBE Not Given BID [facility]
[2019-06-21] MEDS: levETIRAcetam 500 MG/5 ML ORAL LIQD PO SCH (10:32)
[2019-06-21] MEDS: POTASSIUM CHLORIDE 20 MEQ PACKET FEEDTUBE SCH (10:33)
[2019-06-21] MEDS: FAMOTIDINE 20 MG TAB PO SCH ×2 (10:33→21:50)
[2019-06-21] MEDS: VALSARTAN 40 MG TAB FEEDTUBE SCH (10:33)
[2019-06-21] MEDS: FERROUS SULFATE 308 MG (62mg Elemental Iron) / 7 ML ELIXIR PO SCH (10:34)
[2019-06-21] MEDS: methylPREDNISolone Sod Succinate 40 MG/1 ML INJ IV SCH (10:36)
[2019-06-21] MEDS: INSULIN LISPRO 100 UNIT/ML SUB-Q SCH ×5 (10:37→23:50)
--- NOTE | 2019-06-21 11:10 | Progress Note ---
Assessment and Plan 34 y/o male with acute hypoxic, hypercapnic respiratory failure currently ventilated and sedated, now with persistent fevers and seizure and on HD 06/21/2019: Unfortunately re-intubated last week. Will need Trach and Peg, but I doubt peg will happen secondary to his size. Will discuss with surgery and maybe they can just put in a number 6 XLT from the start. I think he will get off the vent relatively quickly and can start to eat. This trach will be indefinite. I have explained this to him. I have not seen his family at the bedside during this admission but Im told they come in the evenings. 06/12/2019: Started HCTZ 50 daily and Labetalol 100 TID. Will increase Labetalol to 200 TID. Already on Clonidine patch. Continue Minoxidil. Will start to wean drip. PT/OT. Feeds through NG now that this is in place. Will need speech re-evaluation. Will order NT suctioning at least [id number] for the next 24 hours. 06/11/2019: Bipap at night and PRN. Na levels are increasing. Agree with D5W. Unable to place DH, several nurses tried. Will ask speech to come by and re assess now that patient is more willing to cooperate. . Continue PT/OT, sat up on side of bed yesterday. Continue IMCU monitoring for now. As stated below, patient was intubated for 37 days. Subjective Date of service: 06/21/19 Principal diagnosis: LOW PLT Interval history: No acute events. Awake and following commands. Objective Vital Signs - 12hr 06/20/19 06/20/19 06/20/19 23:15 23:30 23:38 Temperature 98.9 F Pulse Rate 96 H 96 H Pulse Rate [ From Monitor] Respiratory 20 19 Rate Blood Pressure 111/44 117/46 O2 Sat by Pulse 94 94 Oximetry 06/20/19 06/21/19 06/21/19 23:45 00:00 00:15 Temperature Pulse Rate 97 H 98 H 96 H Pulse Rate [ 96 H From Monitor] Respiratory 22 22 18 Rate Blood Pressure 115/45 119/51 117/44 O2 Sat by Pulse 93 93 95 Oximetry 06/21/19 06/21/19 06/21/19 00:25 00:30 00:46 Temperature Pulse Rate 96 H 96 H 94 H Pulse Rate [ From Monitor] Respiratory 24 19 Rate Blood Pressure 119/51 107/44 92/33 O2 Sat by Pulse 96 94 94 Oximetry 06/21/19 06/21/19 06/21/19 01:00 01:15 01:30 Temperature Pulse Rate 93 H 98 H 99 H Pulse Rate [ From Monitor] Respiratory 20 16 19 Rate Blood Pressure 91/31 143/61 113/44 O2 Sat by Pulse 93 93 95 Oximetry 06/21/19 06/21/19 06/21/19 01:45 02:00 02:15 Temperature Pulse Rate 97 H 97 H 95 H Pulse Rate [ From Monitor] Respiratory 15 20 13 Rate Blood Pressure 105/36 97/37 112/41 O2 Sat by Pulse 94 94 95 Oximetry 06/21/19 06/21/19 06/21/19 02:30 02:45 03:00 Temperature Pulse Rate 98 H 95 H 94 H Pulse Rate [ From Monitor] Respiratory 22 18 17 Rate Blood Pressure 90/35 101/44 97/43 O2 Sat by Pulse 96 96 95 Oximetry 06/21/19 06/21/19 06/21/19 03:15 03:30 03:40 Temperature Pulse Rate 95 H 96 H 99 H Pulse Rate [ From Monitor] Respiratory 15 18 Rate Blood Pressure 116/46 111/47 111/47 O2 Sat by Pulse 96 96 97 Oximetry 06/21/19 06/21/19 06/21/19 03:45 04:00 04:08 Temperature 98.9 F Pulse Rate 98 H 100 H Pulse Rate [ 97 H From Monitor] Respiratory 20 17 Rate Blood Pressure 110/48 108/54 O2 Sat by Pulse 96 95 Oximetry 06/21/19 06/21/19 06/21/19 04:15 04:30 04:45 Temperature Pulse Rate 98 H 100 H 98 H Pulse Rate [ From Monitor] Respiratory 17 19 20 Rate Blood Pressure 113/45 122/56 101/50 O2 Sat by Pulse 96 95 95 Oximetry 06/21/19 06/21/19 06/21/19 05:00 05:15 05:30 Temperature Pulse Rate 96 H 100 H 100 H Pulse Rate [ From Monitor] Respiratory 25 H 20 16 Rate Blood Pressure 101/50 105/51 97/52 O2 Sat by Pulse 96 92 95 Oximetry 06/21/19 06/21/19 06/21/19 05:45 06:00 06:15 Temperature Pulse Rate 98 H 99 H Pulse Rate [ From Monitor] Respiratory 20 18 Rate Blood Pressure 103/51 116/55 114/51 O2 Sat by Pulse 95 98 100 Oximetry 06/21/19 06/21/19 06/21/19 06:30 06:46 07:00 Temperature Pulse Rate 98 H 96 H 99 H Pulse Rate [ From Monitor] Respiratory 17 18 21 Rate Blood Pressure 130/71 139/74 141/64 O2 Sat by Pulse 98 99 Oximetry 06/21/19 06/21/19 06/21/19 07:15 07:30 07:46 Temperature Pulse Rate 100 H 90 90 Pulse Rate [ From Monitor] Respiratory 22 22 20 Rate Blood Pressure 135/64 140/47 106/39 O2 Sat by Pulse 98 99 96 Oximetry 06/21/19 06/21/19 06/21/19 08:00 08:15 08:30 Temperature 99.1 F Pulse Rate 104 H 99 H 100 H Pulse Rate [ 91 H From Monitor] Respiratory 22 21 23 Rate Blood Pressure 158/75 140/57 133/52 O2 Sat by Pulse 99 99 100 Oximetry 06/21/19 06/21/19 06/21/19 08:45 09:00 09:15 Temperature Pulse Rate 100 H 101 H 91 H Pulse Rate [ From Monitor] Respiratory 19 16 20 Rate Blood Pressure 138/61 130/51 126/47 O2 Sat by Pulse 100 100 98 Oximetry 06/21/19 10:33 Temperature Pulse Rate 97 H Pulse Rate [ From Monitor] Respiratory Rate Blood Pressure 120/52 O2 Sat by Pulse Oximetry Constitutional: other (morbidly obese male, critically ill on vent) Eyes: non-icteric ENT: oropharynx moist Neck: other (extremely large in circumference) Effort: normal Ascultation: Bilateral: diminished breath sounds (secondary to body habitus), rhonchi Cardiovascular: regular rate and rhythm (no mrg) Gastrointestinal: normoactive bowel sounds, soft, non-tender, other (obese) Integumentary: other (L hand is wrapped) Extremities: no cyanosis, pink and warm, other (1+ generalized edema) Neurologic: normal mental status, non-focal exam Psychiatric: mood appropriate, affect normal CBC and BMP: 06/21/19 05:20 06/21/19 05:20 ABG, PT/INR, D-dimer: ABG POC ABG pH 7.462 (7.35-7.45) H 06/05/19 03:52 ABG pH 7.476 pH Units (7.350-7.450) H 06/21/19 03:40 POC ABG pCO2 39.8 (35-45) 06/05/19 03:52 ABG pCO2 37.1 mm Hg 06/21/19 03:40 POC ABG pO2 86 (80-105) 06/05/19 03:52 ABG pO2 162.0 mm Hg (80.0-90.0) H 06/21/19 03:40 POC ABG HCO3 28.4 (22-26 mml/L) 06/05/19 03:52 POC ABG Total CO2 30 (23-27mmol/L) 06/05/19 03:52 POC ABG O2 Sat 97 06/05/19 03:52 ABG O2 Saturation 99.1 % (95.0-99.0) H 06/21/19 03:40 PT/INR, D-dimer PT 15.4 Sec. (12.2-14.9) H 05/01/19 Unknown INR 1.23 (0.87-1.13) H 05/01/19 Unknown Abnormal lab findings: Abnormal Labs 05/01/19 05/01/19 05/01/19 17:50 19:26 22:36 WBC RBC Hgb Hct MCV MCH MCHC RDW Plt Count Lymph % (Auto) [place] % (Auto) Eos % (Auto) Lymph # [place] # Eos # Seg Neutrophils % Seg Neuts % (Manual) Lymphocytes % (Manual) Monocytes % (Manual) Eosinophils % (Manual) Nucleated RBC % Seg Neutrophils # Seg Neutrophils # Man Lymphocytes # (Manual) Monocytes # (Manual) Eosinophils # (Manual) PT INR APTT Fibrinogen POC ABG pH 7.272 L 7.331 L ABG pH POC ABG pCO2 52.8 H POC ABG pO2 ABG pO2 ABG HCO3 ABG O2 Saturation ABG Base Excess ABG Hemoglobin Oxyhemoglobin Sodium 136 L Potassium 6.5 H* Chloride 97.2 L Carbon Dioxide BUN 60 H Creatinine Glucose 113 H POC Glucose Uric Acid Calcium Phosphorus Magnesium 2.40 H Iron TIBC AST 139 H ALT 154 H Total Creatine Kinase CK-MB (CK-2) Troponin T NT-Pro-B Natriuret Pep Total Protein Albumin 3.8 L Triglycerides HDL Cholesterol Folate Urine WBC (Auto) Urine Creatinine Urine Total Protein Vancomycin Trough 05/01/19 05/01/19 05/01/19 Unknown Unknown Unknown WBC 16.1 H RBC Hgb Hct MCV MCH MCHC RDW 17.2 H Plt Count Lymph % (Auto) [place] % (Auto) 9.6 H Eos % (Auto) Lymph # [place] # 1.5 H Eos # Seg Neutrophils % 73.0 H Seg Neuts % (Manual) Lymphocytes % (Manual) Monocytes % (Manual) Eosinophils % (Manual) Nucleated RBC % Seg Neutrophils # 11.7 H Seg Neutrophils # Man Lymphocytes # (Manual) Monocytes # (Manual) Eosinophils # (Manual) PT 15.4 H INR 1.23 H APTT 22.7 L Fibrinogen POC ABG pH ABG pH POC ABG pCO2 POC ABG pO2 ABG pO2 ABG HCO3 ABG O2 Saturation ABG Base Excess ABG Hemoglobin Oxyhemoglobin Sodium Potassium Chloride Carbon Dioxide BUN Creatinine Glucose POC Glucose Uric Acid Calcium Phosphorus Magnesium Iron TIBC AST ALT Total Creatine Kinase CK-MB (CK-2) Troponin T NT-Pro-B Natriuret Pep 6831 H Total Protein Albumin Triglycerides HDL Cholesterol Folate Urine WBC (Auto) Urine Creatinine Urine Total Protein Vancomycin Trough 05/01/19 05/02/19 05/02/19 Unknown 00:06 00:06 WBC RBC Hgb Hct MCV MCH MCHC RDW Plt Count Lymph % (Auto) [place] % (Auto) Eos % (Auto) Lymph # [place] # Eos # Seg Neutrophils % Seg Neuts % (Manual) Lymphocytes % (Manual) Monocytes % (Manual) Eosinophils % (Manual) Nucleated RBC % Seg Neutrophils # Seg Neutrophils # Man Lymphocytes # (Manual) Monocytes # (Manual) Eosinophils # (Manual) PT INR APTT Fibrinogen POC ABG pH ABG pH POC ABG pCO2 POC ABG pO2 ABG pO2 ABG HCO3 ABG O2 Saturation ABG Base Excess ABG Hemoglobin Oxyhemoglobin Sodium Potassium Chloride Carbon Dioxide BUN Creatinine Glucose POC Glucose Uric Acid Calcium Phosphorus 4.90 H Magnesium Iron TIBC AST ALT Total Creatine Kinase 226 H CK-MB (CK-2) 5.7 H Troponin T 0.044 H NT-Pro-B Natriuret Pep Total Protein Albumin Triglycerides 182 H HDL Cholesterol 18 L Folate Urine WBC (Auto) Urine Creatinine Urine Total Protein Vancomycin Trough 12/08/19 12/08/19 12/08/19 02:08 04:40 04:41 WBC 17.6 H RBC Hgb Hct MCV MCH 27 L MCHC RDW 17.4 H Plt Count Lymph % (Auto) 10.2 L [place] % (Auto) 11.0 H Eos % (Auto) Lymph # [place] # 1.9 H Eos # Seg Neutrophils % 78.0 H Seg Neuts % (Manual) Lymphocytes % (Manual) Monocytes % (Manual) Eosinophils % (Manual) Nucleated RBC % Seg Neutrophils # 13.8 H Seg Neutrophils # Man Lymphocytes # (Manual) Monocytes # (Manual) Eosinophils # (Manual) PT INR APTT Fibrinogen POC ABG pH ABG pH POC ABG pCO2 46.8 H POC ABG pO2 63 L ABG pO2 ABG HCO3 ABG O2 Saturation ABG Base Excess ABG Hemoglobin Oxyhemoglobin Sodium Potassium Chloride 96.3 L Carbon Dioxide BUN 63 H Creatinine 1.7 H Glucose POC Glucose Uric Acid Calcium Phosphorus Magnesium Iron TIBC AST ALT Total Creatine Kinase CK-MB (CK-2) Troponin T NT-Pro-B Natriuret Pep Total Protein Albumin Triglycerides HDL Cholesterol Folate Urine WBC (Auto) Urine Creatinine Urine Total Protein Vancomycin Trough 05/02/19 05/02/19 05/02/19 04:41 04:41 16:05 WBC RBC Hgb Hct MCV MCH MCHC RDW Plt Count Lymph % (Auto) [place] % (Auto) Eos % (Auto) Lymph # [place] # Eos # Seg Neutrophils % Seg Neuts % (Manual) Lymphocytes % (Manual) Monocytes % (Manual) Eosinophils % (Manual) Nucleated RBC % Seg Neutrophils # Seg Neutrophils # Man Lymphocytes # (Manual) Monocytes # (Manual) Eosinophils # (Manual) PT INR APTT Fibrinogen POC ABG pH ABG pH POC ABG pCO2 POC ABG pO2 ABG pO2 66.6 L ABG HCO3 31.9 H ABG O2 Saturation 92.5 L ABG Base Excess 5.8 H ABG Hemoglobin 13.3 L Oxyhemoglobin 90.6 L Sodium Potassium Chloride 97.2 L Carbon Dioxide BUN 61 H Creatinine 1.8 H Glucose POC Glucose Uric Acid Calcium Phosphorus Magnesium Iron TIBC AST ALT Total Creatine Kinase CK-MB (CK-2) 5.2 H Troponin T 0.067 H D NT-Pro-B Natriuret Pep Total Protein Albumin Triglycerides HDL Cholesterol Folate Urine WBC (Auto) Urine Creatinine Urine Total Protein Vancomycin Trough 05/02/19 05/03/19 05/03/19 20:39 04:35 05:05 WBC 11.8 H RBC Hgb Hct MCV MCH 27 L MCHC 31 L RDW 17.2 H Plt Count Lymph % (Auto) [place] % (Auto) Eos % (Auto) Lymph # [place] # Eos # Seg Neutrophils % Seg Neuts % (Manual) Lymphocytes % (Manual) Monocytes % (Manual) Eosinophils % (Manual) Nucleated RBC % Seg Neutrophils # Seg Neutrophils # Man Lymphocytes # (Manual) Monocytes # (Manual) Eosinophils # (Manual) PT INR APTT Fibrinogen POC ABG pH ABG pH POC ABG pCO2 53.6 H 54.0 H POC ABG pO2 55 L 63 L ABG pO2 ABG HCO3 ABG O2 Saturation ABG Base Excess ABG Hemoglobin Oxyhemoglobin Sodium Potassium Chloride Carbon Dioxide BUN Creatinine Glucose POC Glucose Uric Acid Calcium Phosphorus Magnesium Iron TIBC AST ALT Total Creatine Kinase CK-MB (CK-2) Troponin T NT-Pro-B Natriuret Pep Total Protein Albumin Triglycerides HDL Cholesterol Folate Urine WBC (Auto) Urine Creatinine Urine Total Protein Vancomycin Trough 05/03/19 05/03/19 05/03/19 05:05 10:55 16:48 WBC RBC Hgb Hct MCV MCH MCHC RDW Plt Count Lymph % (Auto) [place] % (Auto) Eos % (Auto) Lymph # [place] # Eos # Seg Neutrophils % Seg Neuts % (Manual) Lymphocytes % (Manual) Monocytes % (Manual) Eosinophils % (Manual) Nucleated RBC % Seg Neutrophils # Seg Neutrophils # Man Lymphocytes # (Manual) Monocytes # (Manual) Eosinophils # (Manual) PT INR APTT Fibrinogen POC ABG pH 7.604 H ABG pH POC ABG pCO2 POC ABG pO2 58 L ABG pO2 ABG HCO3 ABG O2 Saturation ABG Base Excess ABG Hemoglobin Oxyhemoglobin Sodium Potassium Chloride Carbon Dioxide BUN 52 H Creatinine 1.9 H Glucose 103 H POC Glucose Uric Acid Calcium Phosphorus Magnesium Iron TIBC AST ALT Total Creatine Kinase CK-MB (CK-2) Troponin T NT-Pro-B Natriuret Pep Total Protein Albumin Triglycerides HDL Cholesterol Folate Urine WBC (Auto) 33.0 H Urine Creatinine Urine Total Protein Vancomycin Trough 05/04/19 05/04/19 05/04/19 04:49 06:50 06:50 WBC 16.0 H RBC Hgb Hct MCV MCH 27 L MCHC 31 L RDW 17.8 H Plt Count Lymph % (Auto) [place] % (Auto) Eos % (Auto) Lymph # [place] # Eos # Seg Neutrophils % Seg Neuts % (Manual) Lymphocytes % (Manual) Monocytes % (Manual) Eosinophils % (Manual) Nucleated RBC % Seg Neutrophils # Seg Neutrophils # Man Lymphocytes # (Manual) Monocytes # (Manual) Eosinophils # (Manual) PT INR APTT Fibrinogen POC ABG pH 7.273 L ABG pH POC ABG pCO2 POC ABG pO2 ABG pO2 ABG HCO3 ABG O2 Saturation ABG Base Excess ABG Hemoglobin Oxyhemoglobin Sodium 148 H Potassium 5.5 H Chloride Carbon Dioxide BUN 53 H Creatinine 3.3 H D Glucose 106 H POC Glucose Uric Acid Calcium 8.3 L Phosphorus Magnesium Iron TIBC AST ALT Total Creatine Kinase CK-MB (CK-2) Troponin T NT-Pro-B Natriuret Pep Total Protein Albumin Triglycerides HDL Cholesterol Folate Urine WBC (Auto) Urine Creatinine Urine Total Protein Vancomycin Trough 05/05/19 05/05/19 05/05/19 00:05 04:30 05:00 WBC RBC Hgb Hct MCV MCH MCHC RDW Plt Count Lymph % (Auto) [place] % (Auto) Eos % (Auto) Lymph # [place] # Eos # Seg Neutrophils % Seg Neuts % (Manual) Lymphocytes % (Manual) Monocytes % (Manual) Eosinophils % (Manual) Nucleated RBC % Seg Neutrophils # Seg Neutrophils # Man Lymphocytes # (Manual) Monocytes # (Manual) Eosinophils # (Manual) PT INR APTT Fibrinogen POC ABG pH 7.225 L ABG pH POC ABG pCO2 > 70 H POC ABG pO2 ABG pO2 ABG HCO3 ABG O2 Saturation ABG Base Excess ABG Hemoglobin Oxyhemoglobin Sodium 151 H Potassium 5.1 H Chloride Carbon Dioxide BUN 64 H Creatinine 3.5 H Glucose 117 H POC Glucose 141 H Uric Acid Calcium 7.5 L Phosphorus Magnesium Iron TIBC AST 93 H ALT 65 H Total Creatine Kinase CK-MB (CK-2) Troponin T NT-Pro-B Natriuret Pep Total Protein Albumin 2.9 L Triglycerides HDL Cholesterol Folate Urine WBC (Auto) Urine Creatinine Urine Total Protein Vancomycin Trough 05/05/19 05/05/19 05/05/19 05:00 12:02 17:46 WBC 12.0 H RBC Hgb 11.3 L Hct MCV MCH 27 L MCHC 30 L RDW 18.4 H Plt Count Lymph % (Auto) 7.9 L [place] % (Auto) 10.2 H Eos % (Auto) Lymph # 1.0 L [place] # 1.2 H Eos # Seg Neutrophils % 80.8 H Seg Neuts % (Manual) Lymphocytes % (Manual) Monocytes % (Manual) Eosinophils % (Manual) Nucleated RBC % Seg Neutrophils # 9.7 H Seg Neutrophils # Man Lymphocytes # (Manual) Monocytes # (Manual) Eosinophils # (Manual) PT INR APTT Fibrinogen POC ABG pH ABG pH POC ABG pCO2 POC ABG pO2 ABG pO2 ABG HCO3 ABG O2 Saturation ABG Base Excess ABG Hemoglobin Oxyhemoglobin Sodium Potassium Chloride Carbon Dioxide BUN Creatinine Glucose POC Glucose 125 H 112 H Uric Acid Calcium Phosphorus Magnesium Iron TIBC AST ALT Total Creatine Kinase CK-MB (CK-2) Troponin T NT-Pro-B Natriuret Pep Total Protein Albumin Triglycerides HDL Cholesterol Folate Urine WBC (Auto) Urine Creatinine Urine Total Protein Vancomycin Trough 05/05/19 05/06/19 05/06/19 23:42 03:58 04:45 WBC 11.4 H RBC Hgb 10.7 L Hct 34.2 L MCV MCH 27 L MCHC 31 L RDW 16.9 H Plt Count Lymph % (Auto) [place] % (Auto) Eos % (Auto) Lymph # [place] # Eos # Seg Neutrophils % Seg Neuts % (Manual) Lymphocytes % (Manual) Monocytes % (Manual) Eosinophils % (Manual) Nucleated RBC % Seg Neutrophils # Seg Neutrophils # Man Lymphocytes # (Manual) Monocytes # (Manual) Eosinophils # (Manual) PT INR APTT Fibrinogen POC ABG pH ABG pH POC ABG pCO2 62.4 H POC ABG pO2 111 H ABG pO2 ABG HCO3 ABG O2 Saturation ABG Base Excess ABG Hemoglobin Oxyhemoglobin Sodium Potassium Chloride Carbon Dioxide BUN Creatinine Glucose POC Glucose 128 H Uric Acid Calcium Phosphorus Magnesium Iron TIBC AST ALT Total Creatine Kinase CK-MB (CK-2) Troponin T NT-Pro-B Natriuret Pep Total Protein Albumin Triglycerides HDL Cholesterol Folate Urine WBC (Auto) Urine Creatinine Urine Total Protein Vancomycin Trough 05/06/19 05/06/19 05/06/19 04:45 05:33 12:30 WBC RBC Hgb Hct MCV MCH MCHC RDW Plt Count Lymph % (Auto) [place] % (Auto) Eos % (Auto) Lymph # [place] # Eos # Seg Neutrophils % Seg Neuts % (Manual) Lymphocytes % (Manual) Monocytes % (Manual) Eosinophils % (Manual) Nucleated RBC % Seg Neutrophils # Seg Neutrophils # Man Lymphocytes # (Manual) Monocytes # (Manual) Eosinophils # (Manual) PT INR APTT Fibrinogen POC ABG pH ABG pH POC ABG pCO2 POC ABG pO2 ABG pO2 ABG HCO3 ABG O2 Saturation ABG Base Excess ABG Hemoglobin Oxyhemoglobin Sodium 149 H Potassium Chloride Carbon Dioxide 31 H BUN 67 H Creatinine 3.2 H Glucose 125 H POC Glucose 117 H 116 H Uric Acid Calcium 7.5 L Phosphorus Magnesium Iron TIBC AST ALT Total Creatine Kinase CK-MB (CK-2) Troponin T NT-Pro-B Natriuret Pep Total Protein Albumin Triglycerides HDL Cholesterol Folate Urine WBC (Auto) Urine Creatinine Urine Total Protein Vancomycin Trough 05/06/19 05/06/19 05/07/19 18:34 23:16 05:22 WBC RBC Hgb Hct MCV MCH MCHC RDW Plt Count Lymph % (Auto) [place] % (Auto) Eos % (Auto) Lymph # [place] # Eos # Seg Neutrophils % Seg Neuts % (Manual) Lymphocytes % (Manual) Monocytes % (Manual) Eosinophils % (Manual) Nucleated RBC % Seg Neutrophils # Seg Neutrophils # Man Lymphocytes # (Manual) Monocytes # (Manual) Eosinophils # (Manual) PT INR APTT Fibrinogen POC ABG pH ABG pH POC ABG pCO2 POC ABG pO2 ABG pO2 ABG HCO3 ABG O2 Saturation ABG Base Excess ABG Hemoglobin Oxyhemoglobin Sodium Potassium Chloride Carbon Dioxide BUN Creatinine Glucose POC Glucose 128 H 143 H 166 H Uric Acid Calcium Phosphorus Magnesium Iron TIBC AST ALT Total Creatine Kinase CK-MB (CK-2) Troponin T NT-Pro-B Natriuret Pep Total Protein Albumin Triglycerides HDL Cholesterol Folate Urine WBC (Auto) Urine Creatinine Urine Total Protein Vancomycin Trough 05/07/19 05/07/19 05/07/19 06:33 07:03 09:35 WBC RBC Hgb Hct MCV MCH MCHC RDW Plt Count Lymph % (Auto) [place] % (Auto) Eos % (Auto) Lymph # [place] # Eos # Seg Neutrophils % Seg Neuts % (Manual) Lymphocytes % (Manual) Monocytes % (Manual) Eosinophils % (Manual) Nucleated RBC % Seg Neutrophils # Seg Neutrophils # Man Lymphocytes # (Manual) Monocytes # (Manual) Eosinophils # (Manual) PT INR APTT Fibrinogen POC ABG pH 7.263 L 7.288 L ABG pH POC ABG pCO2 POC ABG pO2 51 L 56 L ABG pO2 ABG HCO3 ABG O2 Saturation ABG Base Excess ABG Hemoglobin Oxyhemoglobin Sodium Potassium Chloride Carbon Dioxide BUN 76 H Creatinine 3.2 H Glucose 147 H POC Glucose Uric Acid Calcium 7.9 L Phosphorus Magnesium Iron TIBC AST ALT Total Creatine Kinase CK-MB (CK-2) Troponin T NT-Pro-B Natriuret Pep Total Protein Albumin Triglycerides HDL Cholesterol Folate Urine WBC (Auto) Urine Creatinine Urine Total Protein Vancomycin Trough 05/07/19 05/07/19 05/07/19 09:35 12:17 13:45 WBC 13.4 H RBC Hgb 11.6 L Hct MCV MCH 27 L MCHC 31 L RDW 17.5 H Plt Count Lymph % (Auto) [place] % (Auto) Eos % (Auto) Lymph # [place] # Eos # Seg Neutrophils % Seg Neuts % (Manual) Lymphocytes % (Manual) Monocytes % (Manual) Eosinophils % (Manual) Nucleated RBC % Seg Neutrophils # Seg Neutrophils # Man Lymphocytes # (Manual) Monocytes # (Manual) Eosinophils # (Manual) PT INR APTT Fibrinogen POC ABG pH ABG pH POC ABG pCO2 POC ABG pO2 ABG pO2 ABG HCO3 ABG O2 Saturation ABG Base Excess ABG Hemoglobin Oxyhemoglobin Sodium Potassium Chloride Carbon Dioxide BUN Creatinine Glucose POC Glucose 130 H Uric Acid 18.0 H Calcium Phosphorus Magnesium Iron TIBC AST ALT Total Creatine Kinase CK-MB (CK-2) Troponin T NT-Pro-B Natriuret Pep Total Protein Albumin Triglycerides HDL Cholesterol Folate Urine WBC (Auto) Urine Creatinine Urine Total Protein Vancomycin Trough 05/07/19 05/07/19 05/08/19 17:39 22:40 05:06 WBC RBC Hgb Hct MCV MCH MCHC RDW Plt Count Lymph % (Auto) [place] % (Auto) Eos % (Auto) Lymph # [place] # Eos # Seg Neutrophils % Seg Neuts % (Manual) Lymphocytes % (Manual) Monocytes % (Manual) Eosinophils % (Manual) Nucleated RBC % Seg Neutrophils # Seg Neutrophils # Man Lymphocytes # (Manual) Monocytes # (Manual) Eosinophils # (Manual) PT INR APTT Fibrinogen POC ABG pH ABG pH POC ABG pCO2 POC ABG pO2 ABG pO2 ABG HCO3 ABG O2 Saturation ABG Base Excess ABG Hemoglobin Oxyhemoglobin Sodium Potassium Chloride Carbon Dioxide BUN Creatinine Glucose POC Glucose 116 H 148 H Uric Acid Calcium Phosphorus Magnesium Iron TIBC AST ALT Total Creatine Kinase CK-MB (CK-2) Troponin T NT-Pro-B Natriuret Pep Total Protein Albumin Triglycerides HDL Cholesterol Folate Urine WBC (Auto) Urine Creatinine 292.8 H Urine Total Protein 269 H Vancomycin Trough 05/08/19 05/08/19 05/08/19 05:32 11:28 13:48 WBC RBC Hgb Hct MCV MCH MCHC RDW Plt Count Lymph % (Auto) [place] % (Auto) Eos % (Auto) Lymph # [place] # Eos # Seg Neutrophils % Seg Neuts % (Manual) Lymphocytes % (Manual) Monocytes % (Manual) Eosinophils % (Manual) Nucleated RBC % Seg Neutrophils # Seg Neutrophils # Man Lymphocytes # (Manual) Monocytes # (Manual) Eosinophils # (Manual) PT INR APTT Fibrinogen POC ABG pH ABG pH POC ABG pCO2 45.4 H POC ABG pO2 64 L ABG pO2 ABG HCO3 ABG O2 Saturation ABG Base Excess ABG Hemoglobin Oxyhemoglobin Sodium Potassium Chloride Carbon Dioxide BUN 73 H Creatinine 2.7 H Glucose 127 H POC Glucose 107 H Uric Acid Calcium 7.6 L Phosphorus Magnesium Iron TIBC AST ALT Total Creatine Kinase CK-MB (CK-2) Troponin T NT-Pro-B Natriuret Pep Total Protein Albumin Triglycerides HDL Cholesterol Folate Urine WBC (Auto) Urine Creatinine Urine Total Protein Vancomycin Trough 05/08/19 05/09/19 05/09/19 17:48 04:50 04:53 WBC RBC 3.07 L Hgb 8.5 L D Hct 29.3 L D MCV 96 H MCH MCHC 29 L RDW 18.1 H Plt Count Lymph % (Auto) [place] % (Auto) Eos % (Auto) Lymph # [place] # Eos # Seg Neutrophils % Seg Neuts % (Manual) Lymphocytes % (Manual) Monocytes % (Manual) Eosinophils % (Manual) Nucleated RBC % Seg Neutrophils # Seg Neutrophils # Man Lymphocytes # (Manual) Monocytes # (Manual) Eosinophils # (Manual) PT INR APTT Fibrinogen POC ABG pH 7.316 L ABG pH POC ABG pCO2 66.0 H POC ABG pO2 69 L ABG pO2 ABG HCO3 ABG O2 Saturation ABG Base Excess ABG Hemoglobin Oxyhemoglobin Sodium Potassium Chloride Carbon Dioxide BUN Creatinine Glucose POC Glucose 155 H Uric Acid Calcium Phosphorus Magnesium Iron TIBC AST ALT Total Creatine Kinase CK-MB (CK-2) Troponin T NT-Pro-B Natriuret Pep Total Protein Albumin Triglycerides HDL Cholesterol Folate Urine WBC (Auto) Urine Creatinine Urine Total Protein Vancomycin Trough 05/09/19 05/09/19 05/09/19 05:46 07:24 12:10 WBC RBC Hgb Hct MCV MCH MCHC RDW Plt Count Lymph % (Auto) [place] % (Auto) Eos % (Auto) Lymph # [place] # Eos # Seg Neutrophils % Seg Neuts % (Manual) Lymphocytes % (Manual) Monocytes % (Manual) Eosinophils % (Manual) Nucleated RBC % Seg Neutrophils # Seg Neutrophils # Man Lymphocytes # (Manual) Monocytes # (Manual) Eosinophils # (Manual) PT INR APTT Fibrinogen POC ABG pH ABG pH POC ABG pCO2 POC ABG pO2 ABG pO2 ABG HCO3 ABG O2 Saturation ABG Base Excess ABG Hemoglobin Oxyhemoglobin Sodium Potassium Chloride Carbon Dioxide BUN 73 H Creatinine 2.4 H Glucose 153 H POC Glucose 123 H 148 H Uric Acid Calcium 8.2 L Phosphorus Magnesium Iron TIBC AST 45 H ALT Total Creatine Kinase CK-MB (CK-2) Troponin T NT-Pro-B Natriuret Pep Total Protein 6.0 L Albumin 1.9 L Triglycerides HDL Cholesterol Folate Urine WBC (Auto) Urine Creatinine Urine Total Protein Vancomycin Trough 05/09/19 05/09/19 05/10/19 18:23 23:26 04:52 WBC RBC Hgb Hct MCV MCH MCHC RDW Plt Count Lymph % (Auto) Osborne % (Auto) Eos % (Auto) Lymph # Osborne # Eos # Seg Neutrophils % Seg Neuts % (Manual) Lymphocytes % (Manual) Monocytes % (Manual) Eosinophils % (Manual) Nucleated RBC % Seg Neutrophils # Seg Neutrophils # Man Lymphocytes # (Manual) Monocytes # (Manual) Eosinophils # (Manual) PT INR APTT Fibrinogen POC ABG pH 7.305 L ABG pH POC ABG pCO2 62.6 H POC ABG pO2 ABG pO2 ABG HCO3 ABG O2 Saturation ABG Base Excess ABG Hemoglobin Oxyhemoglobin Sodium Potassium Chloride Carbon Dioxide BUN Creatinine Glucose POC Glucose 147 H 121 H Uric Acid Calcium Phosphorus Magnesium Iron TIBC AST ALT Total Creatine Kinase CK-MB (CK-2) Troponin T NT-Pro-B Natriuret Pep Total Protein Albumin Triglycerides HDL Cholesterol Folate Urine WBC (Auto) Urine Creatinine Urine Total Protein Vancomycin Trough 05/10/19 05/10/19 05/10/19 05:00 05:00 05:50 WBC RBC Hgb 10.3 L Hct 33.7 L MCV MCH 27 L MCHC 31 L RDW 17.0 H Plt Count Lymph % (Auto) [place] % (Auto) Eos % (Auto) Lymph # [place] # Eos # Seg Neutrophils % Seg Neuts % (Manual) Lymphocytes % (Manual) Monocytes % (Manual) Eosinophils % (Manual) Nucleated RBC % Seg Neutrophils # Seg Neutrophils # Man Lymphocytes # (Manual) Monocytes # (Manual) Eosinophils # (Manual) PT INR APTT Fibrinogen POC ABG pH ABG pH POC ABG pCO2 POC ABG pO2 ABG pO2 ABG HCO3 ABG O2 Saturation ABG Base Excess ABG Hemoglobin Oxyhemoglobin Sodium 147 H Potassium Chloride Carbon Dioxide BUN 70 H Creatinine 2.6 H Glucose 155 H POC Glucose 158 H Uric Acid Calcium 8.2 L Phosphorus Magnesium Iron TIBC AST ALT Total Creatine Kinase CK-MB (CK-2) Troponin T NT-Pro-B Natriuret Pep Total Protein 6.1 L Albumin 2.5 L Triglycerides HDL Cholesterol Folate Urine WBC (Auto) Urine Creatinine Urine Total Protein Vancomycin Trough 05/10/19 05/11/19 05/11/19 13:14 07:26 11:40 WBC RBC Hgb Hct MCV MCH MCHC RDW Plt Count Lymph % (Auto) [place] % (Auto) Eos % (Auto) Lymph # [place] # Eos # Seg Neutrophils % Seg Neuts % (Manual) Lymphocytes % (Manual) Monocytes % (Manual) Eosinophils % (Manual) Nucleated RBC % Seg Neutrophils # Seg Neutrophils # Man Lymphocytes # (Manual) Monocytes # (Manual) Eosinophils # (Manual) PT INR APTT Fibrinogen POC ABG pH ABG pH POC ABG pCO2 48.0 H POC ABG pO2 58 L ABG pO2 ABG HCO3 ABG O2 Saturation ABG Base Excess ABG Hemoglobin Oxyhemoglobin Sodium 147 H Potassium Chloride 107.2 H Carbon Dioxide BUN 67 H Creatinine 2.6 H Glucose 121 H POC Glucose 159 H Uric Acid Calcium Phosphorus Magnesium Iron TIBC AST ALT Total Creatine Kinase CK-MB (CK-2) Troponin T NT-Pro-B Natriuret Pep Total Protein Albumin Triglycerides HDL Cholesterol Folate Urine WBC (Auto) Urine Creatinine Urine Total Protein Vancomycin Trough 05/11/19 05/11/19 05/12/19 18:13 23:46 04:40 WBC RBC Hgb Hct MCV MCH MCHC RDW Plt Count Lymph % (Auto) [place] % (Auto) Eos % (Auto) Lymph # [place] # Eos # Seg Neutrophils % Seg Neuts % (Manual) Lymphocytes % (Manual) Monocytes % (Manual) Eosinophils % (Manual) Nucleated RBC % Seg Neutrophils # Seg Neutrophils # Man Lymphocytes # (Manual) Monocytes # (Manual) Eosinophils # (Manual) PT INR APTT Fibrinogen POC ABG pH ABG pH 7.264 L POC ABG pCO2 POC ABG pO2 ABG pO2 66.8 L ABG HCO3 31.0 H ABG O2 Saturation 92.0 L ABG Base Excess ABG Hemoglobin 10.3 L Oxyhemoglobin 90.1 L Sodium Potassium Chloride Carbon Dioxide BUN Creatinine Glucose POC Glucose 120 H 121 H Uric Acid Calcium Phosphorus Magnesium Iron TIBC AST ALT Total Creatine Kinase CK-MB (CK-2) Troponin T NT-Pro-B Natriuret Pep Total Protein Albumin Triglycerides HDL Cholesterol Folate Urine WBC (Auto) Urine Creatinine Urine Total Protein Vancomycin Trough 05/12/19 05/12/19 05/12/19 04:45 04:45 11:14 WBC RBC Hgb 10.2 L Hct 32.4 L MCV MCH MCHC 31 L RDW 17.2 H Plt Count Lymph % (Auto) [place] % (Auto) Eos % (Auto) Lymph # [place] # Eos # Seg Neutrophils % Seg Neuts % (Manual) Lymphocytes % (Manual) Monocytes % (Manual) Eosinophils % (Manual) Nucleated RBC % Seg Neutrophils # Seg Neutrophils # Man Lymphocytes # (Manual) Monocytes # (Manual) Eosinophils # (Manual) PT INR APTT Fibrinogen POC ABG pH 7.284 L ABG pH POC ABG pCO2 67.8 H POC ABG pO2 ABG pO2 ABG HCO3 ABG O2 Saturation ABG Base Excess ABG Hemoglobin Oxyhemoglobin Sodium Potassium Chloride Carbon Dioxide BUN 63 H Creatinine 2.4 H Glucose 110 H POC Glucose Uric Acid Calcium Phosphorus Magnesium Iron TIBC AST ALT Total Creatine Kinase CK-MB (CK-2) Troponin T NT-Pro-B Natriuret Pep Total Protein Albumin Triglycerides HDL Cholesterol Folate Urine WBC (Auto) Urine Creatinine Urine Total Protein Vancomycin Trough 05/12/19 05/12/19 05/13/19 11:44 23:11 04:30 WBC RBC Hgb Hct MCV MCH MCHC RDW Plt Count Lymph % (Auto) [place] % (Auto) Eos % (Auto) Lymph # [place] # Eos # Seg Neutrophils % Seg Neuts % (Manual) Lymphocytes % (Manual) Monocytes % (Manual) Eosinophils % (Manual) Nucleated RBC % Seg Neutrophils # Seg Neutrophils # Man Lymphocytes # (Manual) Monocytes # (Manual) Eosinophils # (Manual) PT INR APTT Fibrinogen POC ABG pH ABG pH 7.288 L POC ABG pCO2 POC ABG pO2 ABG pO2 109.7 H ABG HCO3 30.9 H ABG O2 Saturation ABG Base Excess 3.2 H ABG Hemoglobin 9.6 L Oxyhemoglobin Sodium Potassium Chloride Carbon Dioxide BUN Creatinine Glucose POC Glucose 126 H 147 H Uric Acid Calcium Phosphorus Magnesium Iron TIBC AST ALT Total Creatine Kinase CK-MB (CK-2) Troponin T NT-Pro-B Natriuret Pep Total Protein Albumin Triglycerides HDL Cholesterol Folate Urine WBC (Auto) Urine Creatinine Urine Total Protein Vancomycin Trough 05/13/19 05/13/19 05/14/19 06:27 11:58 04:00 WBC RBC 3.16 L Hgb 9.3 L Hct 27.9 L MCV MCH MCHC RDW 17.1 H Plt Count Lymph % (Auto) [place] % (Auto) Eos % (Auto) Lymph # [place] # Eos # Seg Neutrophils % Seg Neuts % (Manual) Lymphocytes % (Manual) Monocytes % (Manual) Eosinophils % (Manual) Nucleated RBC % Seg Neutrophils # Seg Neutrophils # Man Lymphocytes # (Manual) Monocytes # (Manual) Eosinophils # (Manual) PT INR APTT Fibrinogen POC ABG pH ABG pH POC ABG pCO2 POC ABG pO2 ABG pO2 ABG HCO3 ABG O2 Saturation ABG Base Excess ABG Hemoglobin Oxyhemoglobin Sodium Potassium Chloride Carbon Dioxide BUN Creatinine Glucose POC Glucose 113 H 130 H Uric Acid Calcium Phosphorus Magnesium Iron TIBC AST ALT Total Creatine Kinase CK-MB (CK-2) Troponin T NT-Pro-B Natriuret Pep Total Protein Albumin Triglycerides HDL Cholesterol Folate Urine WBC (Auto) Urine Creatinine Urine Total Protein Vancomycin Trough 05/14/19 05/14/19 05/14/19 04:00 04:34 05:32 WBC RBC Hgb Hct MCV MCH MCHC RDW Plt Count Lymph % (Auto) [place] % (Auto) Eos % (Auto) Lymph # [place] # Eos # Seg Neutrophils % Seg Neuts % (Manual) Lymphocytes % (Manual) Monocytes % (Manual) Eosinophils % (Manual) Nucleated RBC % Seg Neutrophils # Seg Neutrophils # Man Lymphocytes # (Manual) Monocytes # (Manual) Eosinophils # (Manual) PT INR APTT Fibrinogen POC ABG pH 7.328 L ABG pH POC ABG pCO2 61.7 H POC ABG pO2 ABG pO2 ABG HCO3 ABG O2 Saturation ABG Base Excess ABG Hemoglobin Oxyhemoglobin Sodium 135 L D Potassium Chloride Carbon Dioxide BUN 57 H Creatinine 2.2 H Glucose 115 H POC Glucose 115 H Uric Acid Calcium 8.1 L Phosphorus Magnesium Iron TIBC AST ALT Total Creatine Kinase CK-MB (CK-2) Troponin T NT-Pro-B Natriuret Pep Total Protein Albumin Triglycerides HDL Cholesterol Folate Urine WBC (Auto) Urine Creatinine Urine Total Protein Vancomycin Trough 05/14/19 05/15/19 05/15/19 12:11 05:10 05:24 WBC RBC Hgb Hct MCV MCH MCHC RDW Plt Count Lymph % (Auto) [place] % (Auto) Eos % (Auto) Lymph # [place] # Eos # Seg Neutrophils % Seg Neuts % (Manual) Lymphocytes % (Manual) Monocytes % (Manual) Eosinophils % (Manual) Nucleated RBC % Seg Neutrophils # Seg Neutrophils # Man Lymphocytes # (Manual) Monocytes # (Manual) Eosinophils # (Manual) PT INR APTT Fibrinogen POC ABG pH ABG pH 7.342 L POC ABG pCO2 POC ABG pO2 ABG pO2 79.1 L ABG HCO3 28.2 H ABG O2 Saturation ABG Base Excess ABG Hemoglobin 7.0 L Oxyhemoglobin 94.4 L Sodium Potassium Chloride Carbon Dioxide BUN Creatinine Glucose POC Glucose 110 H 116 H Uric Acid Calcium Phosphorus Magnesium Iron TIBC AST ALT Total Creatine Kinase CK-MB (CK-2) Troponin T NT-Pro-B Natriuret Pep Total Protein Albumin Triglycerides HDL Cholesterol Folate Urine WBC (Auto) Urine Creatinine Urine Total Protein Vancomycin Trough 05/15/19 05/15/19 05/16/19 09:00 18:12 04:50 WBC RBC Hgb Hct MCV MCH MCHC RDW Plt Count Lymph % (Auto) [place] % (Auto) Eos % (Auto) Lymph # [place] # Eos # Seg Neutrophils % Seg Neuts % (Manual) Lymphocytes % (Manual) Monocytes % (Manual) Eosinophils % (Manual) Nucleated RBC % Seg Neutrophils # Seg Neutrophils # Man Lymphocytes # (Manual) Monocytes # (Manual) Eosinophils # (Manual) PT INR APTT Fibrinogen POC ABG pH ABG pH 7.250 L POC ABG pCO2 POC ABG pO2 ABG pO2 76.4 L ABG HCO3 ABG O2 Saturation 94.6 L ABG Base Excess -3.1 L ABG Hemoglobin 9.7 L Oxyhemoglobin 92.4 L Sodium Potassium Chloride Carbon Dioxide BUN Creatinine Glucose POC Glucose 110 H Uric Acid Calcium Phosphorus Magnesium Iron TIBC AST ALT Total Creatine Kinase CK-MB (CK-2) Troponin T NT-Pro-B Natriuret Pep Total Protein Albumin Triglycerides HDL Cholesterol Folate Urine WBC (Auto) Urine Creatinine Urine Total Protein Vancomycin Trough 20.5 H 05/16/19 05/16/19 05/17/19 05:50 05:50 04:20 WBC RBC 3.36 L 3.44 L Hgb 9.4 L 9.3 L Hct 29.1 L 29.7 L MCV MCH 27 L MCHC 31 L RDW 17.6 H 17.6 H Plt Count Lymph % (Auto) [place] % (Auto) Eos % (Auto) Lymph # [place] # Eos # Seg Neutrophils % Seg Neuts % (Manual) 77.0 H Lymphocytes % (Manual) 5.0 L Monocytes % (Manual) Eosinophils % (Manual) 10.0 H Nucleated RBC % Seg Neutrophils # Seg Neutrophils # Man Lymphocytes # (Manual) 0.5 L Monocytes # (Manual) Eosinophils # (Manual) 0.9 H PT INR APTT Fibrinogen POC ABG pH ABG pH POC ABG pCO2 POC ABG pO2 ABG pO2 ABG HCO3 ABG O2 Saturation ABG Base Excess ABG Hemoglobin Oxyhemoglobin Sodium Potassium Chloride Carbon Dioxide BUN 83 H Creatinine 4.4 H D Glucose 118 H POC Glucose Uric Acid Calcium Phosphorus Magnesium Iron TIBC AST ALT Total Creatine Kinase CK-MB (CK-2) Troponin T NT-Pro-B Natriuret Pep Total Protein Albumin Triglycerides HDL Cholesterol Folate Urine WBC (Auto) Urine Creatinine Urine Total Protein Vancomycin Trough 05/17/19 05/17/19 05/18/19 04:30 Unknown 01:50 WBC RBC 3.49 L Hgb 9.4 L Hct 30.0 L MCV MCH 27 L MCHC 31 L RDW 17.8 H Plt Count Lymph % (Auto) 7.9 L [place] % (Auto) 15.4 H Eos % (Auto) 6.3 H Lymph # 0.7 L [place] # 1.4 H Eos # 0.6 H Seg Neutrophils % 70.2 H Seg Neuts % (Manual) Lymphocytes % (Manual) Monocytes % (Manual) Eosinophils % (Manual) Nucleated RBC % Seg Neutrophils # Seg Neutrophils # Man Lymphocytes # (Manual) Monocytes # (Manual) Eosinophils # (Manual) PT INR APTT Fibrinogen POC ABG pH ABG pH 7.272 L POC ABG pCO2 POC ABG pO2 ABG pO2 75.7 L ABG HCO3 ABG O2 Saturation 93.8 L ABG Base Excess -3.0 L ABG Hemoglobin 7.8 L Oxyhemoglobin 91.6 L Sodium Potassium 5.2 H Chloride Carbon Dioxide BUN 96 H Creatinine 5.7 H Glucose 112 H POC Glucose Uric Acid Calcium Phosphorus Magnesium Iron TIBC AST ALT Total Creatine Kinase CK-MB (CK-2) Troponin T NT-Pro-B Natriuret Pep Total Protein Albumin Triglycerides 173 H HDL Cholesterol Folate Urine WBC (Auto) Urine Creatinine Urine Total Protein Vancomycin Trough 05/18/19 05/18/19 05/18/19 01:50 04:41 05:24 WBC RBC Hgb Hct MCV MCH MCHC RDW Plt Count Lymph % (Auto) [place] % (Auto) Eos % (Auto) Lymph # [place] # Eos # Seg Neutrophils % Seg Neuts % (Manual) Lymphocytes % (Manual) Monocytes % (Manual) Eosinophils % (Manual) Nucleated RBC % Seg Neutrophils # Seg Neutrophils # Man Lymphocytes # (Manual) Monocytes # (Manual) Eosinophils # (Manual) PT INR APTT Fibrinogen POC ABG pH 7.260 L ABG pH POC ABG pCO2 54.9 H POC ABG pO2 ABG pO2 ABG HCO3 ABG O2 Saturation ABG Base Excess ABG Hemoglobin Oxyhemoglobin Sodium Potassium 5.6 H Chloride Carbon Dioxide BUN 104 H Creatinine 6.6 H Glucose 107 H POC Glucose 106 H Uric Acid Calcium Phosphorus Magnesium Iron TIBC AST ALT Total Creatine Kinase CK-MB (CK-2) Troponin T NT-Pro-B Natriuret Pep Total Protein Albumin Triglycerides HDL Cholesterol Folate Urine WBC (Auto) Urine Creatinine Urine Total Protein Vancomycin Trough 05/18/19 05/18/19 05/19/19 11:34 23:26 04:06 WBC RBC 3.22 L Hgb 8.8 L Hct 27.3 L MCV MCH 27 L MCHC RDW 17.5 H Plt Count Lymph % (Auto) [place] % (Auto) Eos % (Auto) Lymph # [place] # Eos # Seg Neutrophils % Seg Neuts % (Manual) 74.0 H Lymphocytes % (Manual) 4.0 L Monocytes % (Manual) 11.0 H Eosinophils % (Manual) 7.0 H Nucleated RBC % 1.0 H Seg Neutrophils # Seg Neutrophils # Man Lymphocytes # (Manual) 0.3 L Monocytes # (Manual) 0.9 H Eosinophils # (Manual) 0.6 H PT INR APTT Fibrinogen POC ABG pH ABG pH POC ABG pCO2 POC ABG pO2 ABG pO2 ABG HCO3 ABG O2 Saturation ABG Base Excess ABG Hemoglobin Oxyhemoglobin Sodium Potassium Chloride Carbon Dioxide BUN Creatinine Glucose POC Glucose 152 H 112 H Uric Acid Calcium Phosphorus Magnesium Iron TIBC AST ALT Total Creatine Kinase CK-MB (CK-2) Troponin T NT-Pro-B Natriuret Pep Total Protein Albumin Triglycerides HDL Cholesterol Folate Urine WBC (Auto) Urine Creatinine Urine Total Protein Vancomycin Trough 05/19/19 05/19/19 05/20/19 04:06 06:00 04:00 WBC RBC 3.40 L Hgb 9.2 L Hct 28.6 L MCV MCH 27 L MCHC RDW 17.6 H Plt Count Lymph % (Auto) [place] % (Auto) Eos % (Auto) Lymph # [place] # Eos # Seg Neutrophils % Seg Neuts % (Manual) Lymphocytes % (Manual) 11.0 L Monocytes % (Manual) Eosinophils % (Manual) 14.0 H Nucleated RBC % Seg Neutrophils # Seg Neutrophils # Man Lymphocytes # (Manual) 1.1 L Monocytes # (Manual) Eosinophils # (Manual) 1.4 H PT INR APTT Fibrinogen POC ABG pH ABG pH 7.315 L POC ABG pCO2 POC ABG pO2 ABG pO2 ABG HCO3 ABG O2 Saturation ABG Base Excess ABG Hemoglobin 6.7 L Oxyhemoglobin 94.1 L Sodium Potassium 5.2 H Chloride Carbon Dioxide 21 L BUN 110 H Creatinine 7.2 H Glucose POC Glucose Uric Acid Calcium 8.3 L Phosphorus Magnesium Iron TIBC AST ALT Total Creatine Kinase CK-MB (CK-2) Troponin T NT-Pro-B Natriuret Pep Total Protein Albumin Triglycerides HDL Cholesterol Folate Urine WBC (Auto) Urine Creatinine Urine Total Protein Vancomycin Trough 05/20/19 05/20/19 05/20/19 04:00 05:48 12:00 WBC RBC Hgb Hct MCV MCH MCHC RDW Plt Count Lymph % (Auto) [place] % (Auto) Eos % (Auto) Lymph # [place] # Eos # Seg Neutrophils % Seg Neuts % (Manual) Lymphocytes % (Manual) Monocytes % (Manual) Eosinophils % (Manual) Nucleated RBC % Seg Neutrophils # Seg Neutrophils # Man Lymphocytes # (Manual) Monocytes # (Manual) Eosinophils # (Manual) PT INR APTT Fibrinogen POC ABG pH ABG pH 7.281 L POC ABG pCO2 POC ABG pO2 ABG pO2 78.7 L ABG HCO3 ABG O2 Saturation 94.5 L ABG Base Excess -3.0 L ABG Hemoglobin 9.9 L Oxyhemoglobin 92.5 L Sodium 136 L Potassium 5.7 H Chloride 96.3 L Carbon Dioxide BUN 125 H Creatinine 8.3 H Glucose 106 H POC Glucose Uric Acid Calcium Phosphorus Magnesium Iron TIBC AST ALT Total Creatine Kinase CK-MB (CK-2) Troponin T NT-Pro-B Natriuret Pep Total Protein Albumin Triglycerides HDL Cholesterol Folate Urine WBC (Auto) 26.0 H Urine Creatinine Urine Total Protein Vancomycin Trough 05/21/19 05/21/19 05/21/19 04:33 05:20 Unknown WBC RBC 3.38 L Hgb 9.1 L Hct 28.5 L MCV MCH 27 L MCHC RDW 17.4 H Plt Count Lymph % (Auto) [place] % (Auto) Eos % (Auto) Lymph # [place] # Eos # Seg Neutrophils % Seg Neuts % (Manual) 71.0 H Lymphocytes % (Manual) 1.0 L Monocytes % (Manual) 11.0 H Eosinophils % (Manual) 6.0 H Nucleated RBC % Seg Neutrophils # Seg Neutrophils # Man Lymphocytes # (Manual) 0.1 L Monocytes # (Manual) 1.0 H Eosinophils # (Manual) 0.6 H PT INR APTT Fibrinogen POC ABG pH 7.315 L ABG pH POC ABG pCO2 57.8 H POC ABG pO2 68 L ABG pO2 ABG HCO3 ABG O2 Saturation ABG Base Excess ABG Hemoglobin Oxyhemoglobin Sodium Potassium Chloride 96.3 L Carbon Dioxide BUN 102 H Creatinine 7.0 H Glucose 103 H POC Glucose Uric Acid Calcium Phosphorus Magnesium Iron TIBC AST ALT Total Creatine Kinase CK-MB (CK-2) Troponin T NT-Pro-B Natriuret Pep Total Protein Albumin Triglycerides HDL Cholesterol Folate Urine WBC (Auto) Urine Creatinine Urine Total Protein Vancomycin Trough 05/22/19 05/22/19 05/22/19 03:54 06:25 06:25 WBC RBC 3.22 L Hgb 8.6 L Hct 27.0 L MCV MCH 27 L MCHC RDW 17.5 H Plt Count Lymph % (Auto) [place] % (Auto) 16.2 H Eos % (Auto) 10.8 H Lymph # [place] # 1.3 H Eos # 0.9 H Seg Neutrophils % Seg Neuts % (Manual) Lymphocytes % (Manual) 10.0 L Monocytes % (Manual) 13.0 H Eosinophils % (Manual) 8.0 H Nucleated RBC % Seg Neutrophils # Seg Neutrophils # Man Lymphocytes # (Manual) 0.9 L Monocytes # (Manual) 1.1 H Eosinophils # (Manual) 0.7 H PT INR APTT Fibrinogen POC ABG pH 7.313 L ABG pH POC ABG pCO2 55.0 H POC ABG pO2 ABG pO2 ABG HCO3 ABG O2 Saturation ABG Base Excess ABG Hemoglobin Oxyhemoglobin Sodium 135 L Potassium Chloride 94.3 L Carbon Dioxide BUN 117 H Creatinine 7.8 H Glucose POC Glucose Uric Acid Calcium 8.2 L Phosphorus Magnesium Iron TIBC AST ALT Total Creatine Kinase CK-MB (CK-2) Troponin T NT-Pro-B Natriuret Pep Total Protein Albumin Triglycerides HDL Cholesterol Folate Urine WBC (Auto) Urine Creatinine Urine Total Protein Vancomycin Trough 05/23/19 05/24/19 05/24/19 05:21 05:00 05:00 WBC RBC 3.18 L Hgb 8.5 L Hct 26.7 L MCV MCH 27 L MCHC RDW 17.9 H Plt Count Lymph % (Auto) [place] % (Auto) Eos % (Auto) Lymph # [place] # Eos # Seg Neutrophils % Seg Neuts % (Manual) Lymphocytes % (Manual) Monocytes % (Manual) Eosinophils % (Manual) Nucleated RBC % Seg Neutrophils # Seg Neutrophils # Man Lymphocytes # (Manual) Monocytes # (Manual) Eosinophils # (Manual) PT INR APTT Fibrinogen POC ABG pH ABG pH POC ABG pCO2 49.7 H POC ABG pO2 73 L ABG pO2 ABG HCO3 ABG O2 Saturation ABG Base Excess ABG Hemoglobin Oxyhemoglobin Sodium Potassium Chloride 95.7 L Carbon Dioxide BUN 97 H Creatinine 6.5 H Glucose POC Glucose Uric Acid Calcium 8.0 L Phosphorus Magnesium Iron TIBC AST ALT Total Creatine Kinase CK-MB (CK-2) Troponin T NT-Pro-B Natriuret Pep Total Protein Albumin Triglycerides HDL Cholesterol Folate Urine WBC (Auto) Urine Creatinine Urine Total Protein Vancomycin Trough 05/24/19 05/25/19 05/25/19 06:17 04:22 15:45 WBC RBC 2.98 L Hgb 8.1 L Hct 24.9 L MCV MCH 27 L MCHC RDW 17.8 H Plt Count Lymph % (Auto) [place] % (Auto) Eos % (Auto) Lymph # [place] # Eos # Seg Neutrophils % Seg Neuts % (Manual) Lymphocytes % (Manual) Monocytes % (Manual) Eosinophils % (Manual) Nucleated RBC % Seg Neutrophils # Seg Neutrophils # Man Lymphocytes # (Manual) Monocytes # (Manual) Eosinophils # (Manual) PT INR APTT Fibrinogen POC ABG pH 7.330 L 7.313 L ABG pH POC ABG pCO2 52.5 H 51.1 H POC ABG pO2 77 L ABG pO2 ABG HCO3 ABG O2 Saturation ABG Base Excess ABG Hemoglobin Oxyhemoglobin Sodium Potassium Chloride Carbon Dioxide BUN Creatinine Glucose POC Glucose Uric Acid Calcium Phosphorus Magnesium Iron TIBC AST ALT Total Creatine Kinase CK-MB (CK-2) Troponin T NT-Pro-B Natriuret Pep Total Protein Albumin Triglycerides HDL Cholesterol Folate Urine WBC (Auto) Urine Creatinine Urine Total Protein Vancomycin Trough 05/25/19 05/26/19 05/26/19 15:45 04:13 05:00 WBC RBC 3.10 L Hgb 8.4 L Hct 26.0 L MCV MCH 27 L MCHC RDW 17.4 H Plt Count Lymph % (Auto) [place] % (Auto) Eos % (Auto) Lymph # [place] # Eos # Seg Neutrophils % Seg Neuts % (Manual) Lymphocytes % (Manual) Monocytes % (Manual) Eosinophils % (Manual) Nucleated RBC % Seg Neutrophils # Seg Neutrophils # Man Lymphocytes # (Manual) Monocytes # (Manual) Eosinophils # (Manual) PT INR APTT Fibrinogen POC ABG pH 7.295 L ABG pH POC ABG pCO2 56.5 H POC ABG pO2 63 L ABG pO2 ABG HCO3 ABG O2 Saturation ABG Base Excess ABG Hemoglobin Oxyhemoglobin Sodium 136 L Potassium Chloride 96.8 L Carbon Dioxide BUN 83 H Creatinine 5.9 H Glucose POC Glucose Uric Acid Calcium 7.6 L Phosphorus Magnesium Iron TIBC AST ALT Total Creatine Kinase CK-MB (CK-2) Troponin T NT-Pro-B Natriuret Pep Total Protein Albumin Triglycerides HDL Cholesterol Folate Urine WBC (Auto) Urine Creatinine Urine Total Protein Vancomycin Trough 05/26/19 05/27/19 05/28/19 05:00 04:48 04:47 WBC RBC Hgb Hct MCV MCH MCHC RDW Plt Count Lymph % (Auto) [place] % (Auto) Eos % (Auto) Lymph # [place] # Eos # Seg Neutrophils % Seg Neuts % (Manual) Lymphocytes % (Manual) Monocytes % (Manual) Eosinophils % (Manual) Nucleated RBC % Seg Neutrophils # Seg Neutrophils # Man Lymphocytes # (Manual) Monocytes # (Manual) Eosinophils # (Manual) PT INR APTT Fibrinogen POC ABG pH 7.323 L ABG pH 7.284 L POC ABG pCO2 56.2 H POC ABG pO2 ABG pO2 71.6 L ABG HCO3 ABG O2 Saturation 92.0 L ABG Base Excess ABG Hemoglobin 7.7 L Oxyhemoglobin 89.9 L Sodium 136 L Potassium Chloride 95.3 L Carbon Dioxide BUN 96 H Creatinine 6.5 H Glucose 108 H POC Glucose Uric Acid Calcium 7.6 L Phosphorus Magnesium Iron TIBC AST ALT Total Creatine Kinase CK-MB (CK-2) Troponin T NT-Pro-B Natriuret Pep Total Protein Albumin Triglycerides HDL Cholesterol Folate Urine WBC (Auto) Urine Creatinine Urine Total Protein Vancomycin Trough 05/28/19 05/29/19 05/29/19 12:30 12:47 23:44 WBC RBC Hgb Hct MCV MCH MCHC RDW Plt Count Lymph % (Auto) [place] % (Auto) Eos % (Auto) Lymph # [place] # Eos # Seg Neutrophils % Seg Neuts % (Manual) Lymphocytes % (Manual) Monocytes % (Manual) Eosinophils % (Manual) Nucleated RBC % Seg Neutrophils # Seg Neutrophils # Man Lymphocytes # (Manual) Monocytes # (Manual) Eosinophils # (Manual) PT INR APTT Fibrinogen POC ABG pH ABG pH POC ABG pCO2 POC ABG pO2 ABG pO2 ABG HCO3 ABG O2 Saturation ABG Base Excess ABG Hemoglobin Oxyhemoglobin Sodium 135 L Potassium Chloride 95.3 L Carbon Dioxide BUN 82 H Creatinine 6.0 H Glucose POC Glucose 136 H 159 H Uric Acid Calcium 7.5 L Phosphorus Magnesium Iron TIBC AST ALT Total Creatine Kinase CK-MB (CK-2) Troponin T NT-Pro-B Natriuret Pep Total Protein Albumin Triglycerides HDL Cholesterol Folate Urine WBC (Auto) Urine Creatinine Urine Total Protein Vancomycin Trough 05/30/19 05/30/1905/30/20 04:30 05:38 12:00 WBC RBC 3.01 L Hgb 8.2 L Hct 25.3 L MCV MCH 27 L MCHC RDW 17.5 H Plt Count Lymph % (Auto) [place] % (Auto) Eos % (Auto) Lymph # [place] # Eos # Seg Neutrophils % Seg Neuts % (Manual) 80.0 H Lymphocytes % (Manual) 10.0 L Monocytes % (Manual) Eosinophils % (Manual) Nucleated RBC % Seg Neutrophils # Seg Neutrophils # Man 8.0 H Lymphocytes # (Manual) 1.0 L Monocytes # (Manual) Eosinophils # (Manual) PT INR APTT Fibrinogen POC ABG pH ABG pH POC ABG pCO2 POC ABG pO2 73 L ABG pO2 ABG HCO3 ABG O2 Saturation ABG Base Excess ABG Hemoglobin Oxyhemoglobin Sodium Potassium Chloride Carbon Dioxide BUN Creatinine Glucose POC Glucose 166 H Uric Acid Calcium Phosphorus Magnesium Iron TIBC AST ALT Total Creatine Kinase CK-MB (CK-2) Troponin T NT-Pro-B Natriuret Pep Total Protein Albumin Triglycerides HDL Cholesterol Folate Urine WBC (Auto) Urine Creatinine Urine Total Protein Vancomycin Trough 05/30/19 05/31/19 05/31/19 23:45 04:07 13:04 WBC 14.3 H RBC 2.88 L Hgb 7.7 L Hct 23.9 L MCV 83 L MCH 27 L MCHC RDW 17.8 H Plt Count Lymph % (Auto) [place] % (Auto) Eos % (Auto) Lymph # [place] # Eos # Seg Neutrophils % Seg Neuts % (Manual) 83.0 H Lymphocytes % (Manual) 11.0 L Monocytes % (Manual) Eosinophils % (Manual) Nucleated RBC % Seg Neutrophils # Seg Neutrophils # Man 11.9 H Lymphocytes # (Manual) Monocytes # (Manual) 0.9 H Eosinophils # (Manual) PT INR APTT Fibrinogen POC ABG pH ABG pH POC ABG pCO2 47.4 H POC ABG pO2 ABG pO2 ABG HCO3 ABG O2 Saturation ABG Base Excess ABG Hemoglobin Oxyhemoglobin Sodium Potassium Chloride Carbon Dioxide BUN Creatinine Glucose POC Glucose 209 H Uric Acid Calcium Phosphorus Magnesium Iron TIBC AST ALT Total Creatine Kinase CK-MB (CK-2) Troponin T NT-Pro-B Natriuret Pep Total Protein Albumin Triglycerides HDL Cholesterol Folate Urine WBC (Auto) Urine Creatinine Urine Total Protein Vancomycin Trough 0105/31/19 06/01/19 13:04 16:42 00:15 WBC RBC Hgb Hct MCV MCH MCHC RDW Plt Count Lymph % (Auto) Osborne % (Auto) Eos % (Auto) Lymph # Osborne # Eos # Seg Neutrophils % Seg Neuts % (Manual) Lymphocytes % (Manual) Monocytes % (Manual) Eosinophils % (Manual) Nucleated RBC % Seg Neutrophils # Seg Neutrophils # Man Lymphocytes # (Manual) Monocytes # (Manual) Eosinophils # (Manual) PT INR APTT Fibrinogen POC ABG pH ABG pH POC ABG pCO2 POC ABG pO2 ABG pO2 ABG HCO3 ABG O2 Saturation ABG Base Excess ABG Hemoglobin Oxyhemoglobin Sodium 129 L Potassium Chloride 88.6 L Carbon Dioxide 19 L BUN 117 H Creatinine 6.7 H Glucose 205 H POC Glucose 228 H 223 H Uric Acid Calcium 7.4 L Phosphorus 7.40 H Magnesium Iron TIBC AST 58 H ALT 149 H Total Creatine Kinase CK-MB (CK-2) Troponin T NT-Pro-B Natriuret Pep Total Protein 6.0 L Albumin 2.5 L Triglycerides HDL Cholesterol Folate Urine WBC (Auto) Urine Creatinine Urine Total Protein Vancomycin Trough 06/01/19 06/01/19 06/01/19 04:33 05:27 12:31 WBC RBC Hgb Hct MCV MCH MCHC RDW Plt Count Lymph % (Auto) Osborne % (Auto) Eos % (Auto) Lymph # [place] # Eos # Seg Neutrophils % Seg Neuts % (Manual) Lymphocytes % (Manual) Monocytes % (Manual) Eosinophils % (Manual) Nucleated RBC % Seg Neutrophils # Seg Neutrophils # Man Lymphocytes # (Manual) Monocytes # (Manual) Eosinophils # (Manual) PT INR APTT Fibrinogen POC ABG pH ABG pH POC ABG pCO2 POC ABG pO2 ABG pO2 56.9 L ABG HCO3 ABG O2 Saturation 85.9 L ABG Base Excess ABG Hemoglobin 8.1 L Oxyhemoglobin 83.6 L Sodium Potassium Chloride Carbon Dioxide BUN Creatinine Glucose POC Glucose 183 H 217 H Uric Acid Calcium Phosphorus Magnesium Iron TIBC AST ALT Total Creatine Kinase CK-MB (CK-2) Troponin T NT-Pro-B Natriuret Pep Total Protein Albumin Triglycerides HDL Cholesterol Folate Urine WBC (Auto) Urine Creatinine Urine Total Protein Vancomycin Trough 06/01/19 06/02/19 06/02/19 18:20 00:00 05:33 WBC RBC Hgb Hct MCV MCH MCHC RDW Plt Count Lymph % (Auto) [place] % (Auto) Eos % (Auto) Lymph # [place] # Eos # Seg Neutrophils % Seg Neuts % (Manual) Lymphocytes % (Manual) Monocytes % (Manual) Eosinophils % (Manual) Nucleated RBC % Seg Neutrophils # Seg Neutrophils # Man Lymphocytes # (Manual) Monocytes # (Manual) Eosinophils # (Manual) PT INR APTT Fibrinogen POC ABG pH ABG pH POC ABG pCO2 POC ABG pO2 ABG pO2 ABG HCO3 ABG O2 Saturation ABG Base Excess ABG Hemoglobin Oxyhemoglobin Sodium Potassium Chloride Carbon Dioxide BUN Creatinine Glucose POC Glucose 265 H 279 H 259 H Uric Acid Calcium Phosphorus Magnesium Iron TIBC AST ALT Total Creatine Kinase CK-MB (CK-2) Troponin T NT-Pro-B Natriuret Pep Total Protein Albumin Triglycerides HDL Cholesterol Folate Urine WBC (Auto) Urine Creatinine Urine Total Protein Vancomycin Trough 06/02/19 06/02/19 06/02/19 11:06 11:06 11:42 WBC 13.1 H RBC 2.92 L Hgb 7.9 L Hct 24.4 L MCV MCH 27 L MCHC RDW 17.4 H Plt Count Lymph % (Auto) [place] % (Auto) Eos % (Auto) Lymph # [place] # Eos # Seg Neutrophils % Seg Neuts % (Manual) 78.0 H Lymphocytes % (Manual) 12.0 L Monocytes % (Manual) 10.0 H Eosinophils % (Manual) Nucleated RBC % Seg Neutrophils # Seg Neutrophils # Man 10.2 H Lymphocytes # (Manual) Monocytes # (Manual) 1.3 H Eosinophils # (Manual) PT INR APTT Fibrinogen POC ABG pH ABG pH POC ABG pCO2 POC ABG pO2 ABG pO2 ABG HCO3 ABG O2 Saturation ABG Base Excess ABG Hemoglobin Oxyhemoglobin Sodium 135 L Potassium Chloride 94.7 L Carbon Dioxide 21 L BUN 107 H Creatinine 4.5 H Glucose 286 H POC Glucose 263 H Uric Acid Calcium 7.9 L Phosphorus 6.30 H Magnesium Iron TIBC AST ALT 104 H Total Creatine Kinase CK-MB (CK-2) Troponin T NT-Pro-B Natriuret Pep Total Protein 6.0 L Albumin 2.7 L Triglycerides HDL Cholesterol Folate Urine WBC (Auto) Urine Creatinine Urine Total Protein Vancomycin Trough 06/02/19 06/02/19 06/03/19 18:17 23:55 05:30 WBC RBC Hgb Hct MCV MCH MCHC RDW Plt Count Lymph % (Auto) [place] % (Auto) Eos % (Auto) Lymph # [place] # Eos # Seg Neutrophils % Seg Neuts % (Manual) Lymphocytes % (Manual) Monocytes % (Manual) Eosinophils % (Manual) Nucleated RBC % Seg Neutrophils # Seg Neutrophils # Man Lymphocytes # (Manual) Monocytes # (Manual) Eosinophils # (Manual) PT INR APTT Fibrinogen POC ABG pH ABG pH POC ABG pCO2 POC ABG pO2 ABG pO2 ABG HCO3 ABG O2 Saturation ABG Base Excess ABG Hemoglobin Oxyhemoglobin Sodium Potassium Chloride 95.1 L Carbon Dioxide 21 L BUN 119 H Creatinine 4.1 H Glucose 330 H POC Glucose 276 H 244 H Uric Acid Calcium 8.1 L Phosphorus Magnesium Iron TIBC AST ALT 98 H Total Creatine Kinase CK-MB (CK-2) Troponin T NT-Pro-B Natriuret Pep Total Protein 5.8 L Albumin 2.8 L Triglycerides HDL Cholesterol Folate Urine WBC (Auto) Urine Creatinine Urine Total Protein Vancomycin Trough 06/03/19 06/03/19 06/03/19 05:30 06:04 09:42 WBC 12.8 H RBC 3.01 L Hgb 8.2 L Hct 25.4 L MCV MCH 27 L MCHC RDW 17.5 H Plt Count Lymph % (Auto) [place] % (Auto) Eos % (Auto) Lymph # [place] # Eos # Seg Neutrophils % Seg Neuts % (Manual) 78.0 H Lymphocytes % (Manual) 10.0 L Monocytes % (Manual) 12.0 H Eosinophils % (Manual) Nucleated RBC % Seg Neutrophils # Seg Neutrophils # Man 10.0 H Lymphocytes # (Manual) Monocytes # (Manual) 1.5 H Eosinophils # (Manual) PT INR APTT Fibrinogen POC ABG pH ABG pH POC ABG pCO2 POC ABG pO2 ABG pO2 ABG HCO3 ABG O2 Saturation ABG Base Excess ABG Hemoglobin Oxyhemoglobin Sodium Potassium Chloride Carbon Dioxide BUN 106 H Creatinine Glucose POC Glucose 254 H Uric Acid Calcium Phosphorus Magnesium Iron TIBC AST ALT Total Creatine Kinase CK-MB (CK-2) Troponin T NT-Pro-B Natriuret Pep Total Protein Albumin Triglycerides HDL Cholesterol Folate Urine WBC (Auto) Urine Creatinine Urine Total Protein Vancomycin Trough 06/03/19 06/03/19 06/03/19 12:52 17:25 23:37 WBC RBC Hgb Hct MCV MCH MCHC RDW Plt Count Lymph % (Auto) [place] % (Auto) Eos % (Auto) Lymph # [place] # Eos # Seg Neutrophils % Seg Neuts % (Manual) Lymphocytes % (Manual) Monocytes % (Manual) Eosinophils % (Manual) Nucleated RBC % Seg Neutrophils # Seg Neutrophils # Man Lymphocytes # (Manual) Monocytes # (Manual) Eosinophils # (Manual) PT INR APTT Fibrinogen POC ABG pH ABG pH POC ABG pCO2 POC ABG pO2 ABG pO2 ABG HCO3 ABG O2 Saturation ABG Base Excess ABG Hemoglobin Oxyhemoglobin Sodium Potassium Chloride Carbon Dioxide BUN Creatinine Glucose POC Glucose 274 H 285 H 310 H Uric Acid Calcium Phosphorus Magnesium Iron TIBC AST ALT Total Creatine Kinase CK-MB (CK-2) Troponin T NT-Pro-B Natriuret Pep Total Protein Albumin Triglycerides HDL Cholesterol Folate Urine WBC (Auto) Urine Creatinine Urine Total Protein Vancomycin Trough 06/04/19 06/04/19 06/04/19 04:57 05:03 11:50 WBC RBC Hgb Hct MCV MCH MCHC RDW Plt Count Lymph % (Auto) [place] % (Auto) Eos % (Auto) Lymph # [place] # Eos # Seg Neutrophils % Seg Neuts % (Manual) Lymphocytes % (Manual) Monocytes % (Manual) Eosinophils % (Manual) Nucleated RBC % Seg Neutrophils # Seg Neutrophils # Man Lymphocytes # (Manual) Monocytes # (Manual) Eosinophils # (Manual) PT INR APTT Fibrinogen POC ABG pH 7.488 H ABG pH POC ABG pCO2 POC ABG pO2 ABG pO2 ABG HCO3 ABG O2 Saturation ABG Base Excess ABG Hemoglobin Oxyhemoglobin Sodium Potassium Chloride Carbon Dioxide BUN Creatinine Glucose POC Glucose 275 H 279 H Uric Acid Calcium Phosphorus Magnesium Iron TIBC AST ALT Total Creatine Kinase CK-MB (CK-2) Troponin T NT-Pro-B Natriuret Pep Total Protein Albumin Triglycerides HDL Cholesterol Folate Urine WBC (Auto) Urine Creatinine Urine Total Protein Vancomycin Trough 06/04/19 06/04/19 06/04/19 18:32 22:03 23:55 WBC RBC Hgb Hct MCV MCH MCHC RDW Plt Count Lymph % (Auto) [place] % (Auto) Eos % (Auto) Lymph # [place] # Eos # Seg Neutrophils % Seg Neuts % (Manual) Lymphocytes % (Manual) Monocytes % (Manual) Eosinophils % (Manual) Nucleated RBC % Seg Neutrophils # Seg Neutrophils # Man Lymphocytes # (Manual) Monocytes # (Manual) Eosinophils # (Manual) PT INR APTT Fibrinogen POC ABG pH ABG pH POC ABG pCO2 POC ABG pO2 ABG pO2 ABG HCO3 ABG O2 Saturation ABG Base Excess ABG Hemoglobin Oxyhemoglobin Sodium Potassium Chloride Carbon Dioxide BUN Creatinine Glucose POC Glucose 267 H 307 H 292 H Uric Acid Calcium Phosphorus Magnesium Iron TIBC AST ALT Total Creatine Kinase CK-MB (CK-2) Troponin T NT-Pro-B Natriuret Pep Total Protein Albumin Triglycerides HDL Cholesterol Folate Urine WBC (Auto) Urine Creatinine Urine Total Protein Vancomycin Trough 06/05/19 06/05/19 06/05/19 03:52 06:41 12:29 WBC RBC Hgb Hct MCV MCH MCHC RDW Plt Count Lymph % (Auto) [place] % (Auto) Eos % (Auto) Lymph # [place] # Eos # Seg Neutrophils % Seg Neuts % (Manual) Lymphocytes % (Manual) Monocytes % (Manual) Eosinophils % (Manual) Nucleated RBC % Seg Neutrophils # Seg Neutrophils # Man Lymphocytes # (Manual) Monocytes # (Manual) Eosinophils # (Manual) PT INR APTT Fibrinogen POC ABG pH 7.462 H ABG pH POC ABG pCO2 POC ABG pO2 ABG pO2 ABG HCO3 ABG O2 Saturation ABG Base Excess ABG Hemoglobin Oxyhemoglobin Sodium Potassium Chloride Carbon Dioxide BUN Creatinine Glucose POC Glucose 369 H 265 H Uric Acid Calcium Phosphorus Magnesium Iron TIBC AST ALT Total Creatine Kinase CK-MB (CK-2) Troponin T NT-Pro-B Natriuret Pep Total Protein Albumin Triglycerides HDL Cholesterol Folate Urine WBC (Auto) Urine Creatinine Urine Total Protein Vancomycin Trough 06/05/19 06/05/19 06/05/19 18:20 21:42 23:21 WBC RBC Hgb Hct MCV MCH MCHC RDW Plt Count Lymph % (Auto) [place] % (Auto) Eos % (Auto) Lymph # [place] # Eos # Seg Neutrophils % Seg Neuts % (Manual) Lymphocytes % (Manual) Monocytes % (Manual) Eosinophils % (Manual) Nucleated RBC % Seg Neutrophils # Seg Neutrophils # Man Lymphocytes # (Manual) Monocytes # (Manual) Eosinophils # (Manual) PT INR APTT Fibrinogen POC ABG pH ABG pH POC ABG pCO2 POC ABG pO2 ABG pO2 ABG HCO3 ABG O2 Saturation ABG Base Excess ABG Hemoglobin Oxyhemoglobin Sodium Potassium Chloride Carbon Dioxide BUN Creatinine Glucose POC Glucose 249 H 246 H 274 H Uric Acid Calcium Phosphorus Magnesium Iron TIBC AST ALT Total Creatine Kinase CK-MB (CK-2) Troponin T NT-Pro-B Natriuret Pep Total Protein Albumin Triglycerides HDL Cholesterol Folate Urine WBC (Auto) Urine Creatinine Urine Total Protein Vancomycin Trough 06/06/19 06/06/19 06/06/19 04:00 05:49 11:34 WBC 18.1 H RBC 3.53 L Hgb 9.5 L Hct 30.3 L MCV MCH 27 L MCHC 31 L RDW 19.5 H Plt Count Lymph % (Auto) [place] % (Auto) Eos % (Auto) Lymph # [place] # Eos # Seg Neutrophils % Seg Neuts % (Manual) 87.0 H Lymphocytes % (Manual) 3.0 L Monocytes % (Manual) 8.0 H Eosinophils % (Manual) Nucleated RBC % Seg Neutrophils # Seg Neutrophils # Man 15.7 H Lymphocytes # (Manual) 0.5 L Monocytes # (Manual) 1.4 H Eosinophils # (Manual) PT INR APTT Fibrinogen POC ABG pH ABG pH 7.472 H POC ABG pCO2 POC ABG pO2 ABG pO2 76.4 L ABG HCO3 28.1 H ABG O2 Saturation ABG Base Excess 4.3 H ABG Hemoglobin 12.5 L Oxyhemoglobin 93.8 L Sodium Potassium Chloride Carbon Dioxide BUN Creatinine Glucose POC Glucose 340 H Uric Acid Calcium Phosphorus Magnesium Iron TIBC AST ALT Total Creatine Kinase CK-MB (CK-2) Troponin T NT-Pro-B Natriuret Pep Total Protein Albumin Triglycerides HDL Cholesterol Folate Urine WBC (Auto) Urine Creatinine Urine Total Protein Vancomycin Trough 06/06/19 06/06/19 06/06/19 11:34 12:11 18:10 WBC RBC Hgb Hct MCV MCH MCHC RDW Plt Count Lymph % (Auto) [place] % (Auto) Eos % (Auto) Lymph # [place] # Eos # Seg Neutrophils % Seg Neuts % (Manual) Lymphocytes % (Manual) Monocytes % (Manual) Eosinophils % (Manual) Nucleated RBC % Seg Neutrophils # Seg Neutrophils # Man Lymphocytes # (Manual) Monocytes # (Manual) Eosinophils # (Manual) PT INR APTT Fibrinogen POC ABG pH ABG pH POC ABG pCO2 POC ABG pO2 ABG pO2 ABG HCO3 ABG O2 Saturation ABG Base Excess ABG Hemoglobin Oxyhemoglobin Sodium Potassium Chloride Carbon Dioxide BUN 70 H Creatinine Glucose 310 H POC Glucose 283 H 301 H Uric Acid Calcium 8.3 L Phosphorus 4.60 H Magnesium Iron TIBC AST ALT 75 H Total Creatine Kinase CK-MB (CK-2) Troponin T NT-Pro-B Natriuret Pep Total Protein 5.6 L Albumin 2.9 L Triglycerides HDL Cholesterol Folate Urine WBC (Auto) Urine Creatinine Urine Total Protein Vancomycin Trough 06/06/19 06/06/19 06/07/19 22:21 23:16 04:30 WBC RBC Hgb Hct MCV MCH MCHC RDW Plt Count Lymph % (Auto) [place] % (Auto) Eos % (Auto) Lymph # [place] # Eos # Seg Neutrophils % Seg Neuts % (Manual) Lymphocytes % (Manual) Monocytes % (Manual) Eosinophils % (Manual) Nucleated RBC % Seg Neutrophils # Seg Neutrophils # Man Lymphocytes # (Manual) Monocytes # (Manual) Eosinophils # (Manual) PT INR APTT Fibrinogen POC ABG pH ABG pH 7.480 H POC ABG pCO2 POC ABG pO2 ABG pO2 77.0 L ABG HCO3 27.2 H ABG O2 Saturation ABG Base Excess 3.5 H ABG Hemoglobin 7.1 L Oxyhemoglobin 94.2 L Sodium Potassium Chloride Carbon Dioxide BUN Creatinine Glucose POC Glucose 289 H 343 H Uric Acid Calcium Phosphorus Magnesium Iron TIBC AST ALT Total Creatine Kinase CK-MB (CK-2) Troponin T NT-Pro-B Natriuret Pep Total Protein Albumin Triglycerides HDL Cholesterol Folate Urine WBC (Auto) Urine Creatinine Urine Total Protein Vancomycin Trough 06/07/19 06/07/19 06/07/19 05:15 12:52 18:41 WBC RBC Hgb Hct MCV MCH MCHC RDW Plt Count Lymph % (Auto) [place] % (Auto) Eos % (Auto) Lymph # [place] # Eos # Seg Neutrophils % Seg Neuts % (Manual) Lymphocytes % (Manual) Monocytes % (Manual) Eosinophils % (Manual) Nucleated RBC % Seg Neutrophils # Seg Neutrophils # Man Lymphocytes # (Manual) Monocytes # (Manual) Eosinophils # (Manual) PT INR APTT Fibrinogen POC ABG pH ABG pH POC ABG pCO2 POC ABG pO2 ABG pO2 ABG HCO3 ABG O2 Saturation ABG Base Excess ABG Hemoglobin Oxyhemoglobin Sodium Potassium Chloride Carbon Dioxide BUN Creatinine Glucose POC Glucose 307 H 226 H 187 H Uric Acid Calcium Phosphorus Magnesium Iron TIBC AST ALT Total Creatine Kinase CK-MB (CK-2) Troponin T NT-Pro-B Natriuret Pep Total Protein Albumin Triglycerides HDL Cholesterol Folate Urine WBC (Auto) Urine Creatinine Urine Total Protein Vancomycin Trough 06/07/19 06/07/19 06/08/19 22:54 23:46 04:20 WBC 16.0 H RBC Hgb 10.0 L Hct 32.1 L MCV MCH 27 L MCHC 31 L RDW 19.4 H Plt Count Lymph % (Auto) [place] % (Auto) Eos % (Auto) Lymph # [place] # Eos # Seg Neutrophils % Seg Neuts % (Manual) 87.0 H Lymphocytes % (Manual) 7.0 L Monocytes % (Manual) Eosinophils % (Manual) Nucleated RBC % Seg Neutrophils # Seg Neutrophils # Man 13.9 H Lymphocytes # (Manual) 1.1 L Monocytes # (Manual) 1.0 H Eosinophils # (Manual) PT INR APTT Fibrinogen POC ABG pH ABG pH POC ABG pCO2 POC ABG pO2 ABG pO2 ABG HCO3 ABG O2 Saturation ABG Base Excess ABG Hemoglobin Oxyhemoglobin Sodium Potassium Chloride Carbon Dioxide BUN Creatinine Glucose POC Glucose 199 H 172 H Uric Acid Calcium Phosphorus Magnesium Iron TIBC AST ALT Total Creatine Kinase CK-MB (CK-2) Troponin T NT-Pro-B Natriuret Pep Total Protein Albumin Triglycerides HDL Cholesterol Folate Urine WBC (Auto) Urine Creatinine Urine Total Protein Vancomycin Trough 06/08/19 06/08/19 06/08/19 04:20 05:15 11:31 WBC RBC Hgb Hct MCV MCH MCHC RDW Plt Count Lymph % (Auto) [place] % (Auto) Eos % (Auto) Lymph # [place] # Eos # Seg Neutrophils % Seg Neuts % (Manual) Lymphocytes % (Manual) Monocytes % (Manual) Eosinophils % (Manual) Nucleated RBC % Seg Neutrophils # Seg Neutrophils # Man Lymphocytes # (Manual) Monocytes # (Manual) Eosinophils # (Manual) PT INR APTT Fibrinogen POC ABG pH ABG pH POC ABG pCO2 POC ABG pO2 ABG pO2 ABG HCO3 ABG O2 Saturation ABG Base Excess ABG Hemoglobin Oxyhemoglobin Sodium 146 H D Potassium Chloride Carbon Dioxide BUN 77 H Creatinine Glucose 205 H POC Glucose 209 H 181 H Uric Acid Calcium Phosphorus Magnesium Iron TIBC AST ALT 66 H Total Creatine Kinase CK-MB (CK-2) Troponin T NT-Pro-B Natriuret Pep Total Protein 5.5 L Albumin 2.9 L Triglycerides HDL Cholesterol Folate Urine WBC (Auto) Urine Creatinine Urine Total Protein Vancomycin Trough 06/08/19 06/08/19 06/09/19 17:28 23:24 05:20 WBC RBC Hgb Hct MCV MCH MCHC RDW Plt Count Lymph % (Auto) [place] % (Auto) Eos % (Auto) Lymph # [place] # Eos # Seg Neutrophils % Seg Neuts % (Manual) Lymphocytes % (Manual) Monocytes % (Manual) Eosinophils % (Manual) Nucleated RBC % Seg Neutrophils # Seg Neutrophils # Man Lymphocytes # (Manual) Monocytes # (Manual) Eosinophils # (Manual) PT INR APTT Fibrinogen POC ABG pH ABG pH POC ABG pCO2 POC ABG pO2 ABG pO2 ABG HCO3 ABG O2 Saturation ABG Base Excess ABG Hemoglobin Oxyhemoglobin Sodium Potassium Chloride Carbon Dioxide BUN Creatinine Glucose POC Glucose 215 H 200 H 173 H Uric Acid Calcium Phosphorus Magnesium Iron TIBC AST ALT Total Creatine Kinase CK-MB (CK-2) Troponin T NT-Pro-B Natriuret Pep Total Protein Albumin Triglycerides HDL Cholesterol Folate Urine WBC (Auto) Urine Creatinine Urine Total Protein Vancomycin Trough 06/09/19 06/09/19 06/09/19 12:07 18:32 23:51 WBC RBC Hgb Hct MCV MCH MCHC RDW Plt Count Lymph % (Auto) [place] % (Auto) Eos % (Auto) Lymph # [place] # Eos # Seg Neutrophils % Seg Neuts % (Manual) Lymphocytes % (Manual) Monocytes % (Manual) Eosinophils % (Manual) Nucleated RBC % Seg Neutrophils # Seg Neutrophils # Man Lymphocytes # (Manual) Monocytes # (Manual) Eosinophils # (Manual) PT INR APTT Fibrinogen POC ABG pH ABG pH POC ABG pCO2 POC ABG pO2 ABG pO2 ABG HCO3 ABG O2 Saturation ABG Base Excess ABG Hemoglobin Oxyhemoglobin Sodium Potassium Chloride Carbon Dioxide BUN Creatinine Glucose POC Glucose 117 H 169 H 147 H Uric Acid Calcium Phosphorus Magnesium Iron TIBC AST ALT Total Creatine Kinase CK-MB (CK-2) Troponin T NT-Pro-B Natriuret Pep Total Protein Albumin Triglycerides HDL Cholesterol Folate Urine WBC (Auto) Urine Creatinine Urine Total Protein Vancomycin Trough 06/10/19 06/10/19 06/10/19 05:45 05:45 06:01 WBC 14.6 H RBC Hgb 9.9 L Hct 32.2 L MCV MCH 27 L MCHC 31 L RDW 19.6 H Plt Count Lymph % (Auto) 10.5 L [place] % (Auto) 9.4 H Eos % (Auto) Lymph # [place] # 1.4 H Eos # Seg Neutrophils % 79.9 H Seg Neuts % (Manual) Lymphocytes % (Manual) Monocytes % (Manual) Eosinophils % (Manual) Nucleated RBC % Seg Neutrophils # 11.7 H Seg Neutrophils # Man Lymphocytes # (Manual) Monocytes # (Manual) Eosinophils # (Manual) PT INR APTT Fibrinogen POC ABG pH ABG pH POC ABG pCO2 POC ABG pO2 ABG pO2 ABG HCO3 ABG O2 Saturation ABG Base Excess ABG Hemoglobin Oxyhemoglobin Sodium 150 H Potassium Chloride 108.3 H Carbon Dioxide BUN 49 H Creatinine Glucose 172 H POC Glucose 165 H Uric Acid Calcium Phosphorus Magnesium 1.40 L Iron TIBC AST ALT Total Creatine Kinase CK-MB (CK-2) Troponin T NT-Pro-B Natriuret Pep Total Protein Albumin Triglycerides HDL Cholesterol Folate Urine WBC (Auto) Urine Creatinine Urine Total Protein Vancomycin Trough 06/10/19 06/10/19 06/11/19 12:11 18:30 00:02 WBC RBC Hgb Hct MCV MCH MCHC RDW Plt Count Lymph % (Auto) [place] % (Auto) Eos % (Auto) Lymph # [place] # Eos # Seg Neutrophils % Seg Neuts % (Manual) Lymphocytes % (Manual) Monocytes % (Manual) Eosinophils % (Manual) Nucleated RBC % Seg Neutrophils # Seg Neutrophils # Man Lymphocytes # (Manual) Monocytes # (Manual) Eosinophils # (Manual) PT INR APTT Fibrinogen POC ABG pH ABG pH POC ABG pCO2 POC ABG pO2 ABG pO2 ABG HCO3 ABG O2 Saturation ABG Base Excess ABG Hemoglobin Oxyhemoglobin Sodium Potassium Chloride Carbon Dioxide BUN Creatinine Glucose POC Glucose 150 H 154 H 130 H Uric Acid Calcium Phosphorus Magnesium Iron TIBC AST ALT Total Creatine Kinase CK-MB (CK-2) Troponin T NT-Pro-B Natriuret Pep Total Protein Albumin Triglycerides HDL Cholesterol Folate Urine WBC (Auto) Urine Creatinine Urine Total Protein Vancomycin Trough 06/11/19 06/11/19 06/11/19 05:33 08:34 12:33 WBC RBC Hgb Hct MCV MCH MCHC RDW Plt Count Lymph % (Auto) [place] % (Auto) Eos % (Auto) Lymph # [place] # Eos # Seg Neutrophils % Seg Neuts % (Manual) Lymphocytes % (Manual) Monocytes % (Manual) Eosinophils % (Manual) Nucleated RBC % Seg Neutrophils # Seg Neutrophils # Man Lymphocytes # (Manual) Monocytes # (Manual) Eosinophils # (Manual) PT INR APTT Fibrinogen POC ABG pH ABG pH POC ABG pCO2 POC ABG pO2 ABG pO2 ABG HCO3 ABG O2 Saturation ABG Base Excess ABG Hemoglobin Oxyhemoglobin Sodium 154 H Potassium Chloride 111.6 H Carbon Dioxide BUN 41 H Creatinine Glucose 147 H POC Glucose 183 H 185 H Uric Acid Calcium Phosphorus Magnesium Iron TIBC AST ALT Total Creatine Kinase CK-MB (CK-2) Troponin T NT-Pro-B Natriuret Pep Total Protein Albumin Triglycerides HDL Cholesterol Folate Urine WBC (Auto) Urine Creatinine Urine Total Protein Vancomycin Trough 06/11/19 06/11/19 06/12/19 18:22 23:46 03:21 WBC 11.9 H RBC 3.61 L Hgb 9.9 L Hct 31.7 L MCV MCH 27 L MCHC 31 L RDW 19.3 H Plt Count Lymph % (Auto) 10.6 L [place] % (Auto) 8.6 H Eos % (Auto) Lymph # [place] # 1.0 H Eos # Seg Neutrophils % 80.6 H Seg Neuts % (Manual) Lymphocytes % (Manual) Monocytes % (Manual) Eosinophils % (Manual) Nucleated RBC % Seg Neutrophils # 9.6 H Seg Neutrophils # Man Lymphocytes # (Manual) Monocytes # (Manual) Eosinophils # (Manual) PT INR APTT Fibrinogen POC ABG pH ABG pH POC ABG pCO2 POC ABG pO2 ABG pO2 ABG HCO3 ABG O2 Saturation ABG Base Excess ABG Hemoglobin Oxyhemoglobin Sodium Potassium Chloride Carbon Dioxide BUN Creatinine Glucose POC Glucose 158 H 182 H Uric Acid Calcium Phosphorus Magnesium Iron TIBC AST ALT Total Creatine Kinase CK-MB (CK-2) Troponin T NT-Pro-B Natriuret Pep Total Protein Albumin Triglycerides HDL Cholesterol Folate Urine WBC (Auto) Urine Creatinine Urine Total Protein Vancomycin Trough 06/12/19 06/12/19 06/12/19 03:21 06:04 11:28 WBC RBC Hgb Hct MCV MCH MCHC RDW Plt Count Lymph % (Auto) [place] % (Auto) Eos % (Auto) Lymph # [place] # Eos # Seg Neutrophils % Seg Neuts % (Manual) Lymphocytes % (Manual) Monocytes % (Manual) Eosinophils % (Manual) Nucleated RBC % Seg Neutrophils # Seg Neutrophils # Man Lymphocytes # (Manual) Monocytes # (Manual) Eosinophils # (Manual) PT INR APTT Fibrinogen POC ABG pH ABG pH POC ABG pCO2 POC ABG pO2 ABG pO2 ABG HCO3 ABG O2 Saturation ABG Base Excess ABG Hemoglobin Oxyhemoglobin Sodium 148 H Potassium Chloride 107.3 H Carbon Dioxide BUN 34 H Creatinine 0.7 L Glucose 194 H POC Glucose 133 H 167 H Uric Acid Calcium Phosphorus Magnesium 1.40 L Iron TIBC AST ALT Total Creatine Kinase CK-MB (CK-2) Troponin T NT-Pro-B Natriuret Pep Total Protein Albumin Triglycerides HDL Cholesterol Folate Urine WBC (Auto) Urine Creatinine Urine Total Protein Vancomycin Trough 06/12/19 06/12/19 06/13/19 18:47 21:27 00:04 WBC RBC Hgb Hct MCV MCH MCHC RDW Plt Count Lymph % (Auto) [place] % (Auto) Eos % (Auto) Lymph # [place] # Eos # Seg Neutrophils % Seg Neuts % (Manual) Lymphocytes % (Manual) Monocytes % (Manual) Eosinophils % (Manual) Nucleated RBC % Seg Neutrophils # Seg Neutrophils # Man Lymphocytes # (Manual) Monocytes # (Manual) Eosinophils # (Manual) PT INR APTT Fibrinogen POC ABG pH ABG pH POC ABG pCO2 POC ABG pO2 ABG pO2 ABG HCO3 ABG O2 Saturation ABG Base Excess ABG Hemoglobin Oxyhemoglobin Sodium Potassium Chloride Carbon Dioxide BUN Creatinine Glucose POC Glucose 210 H 263 H 248 H Uric Acid Calcium Phosphorus Magnesium Iron TIBC AST ALT Total Creatine Kinase CK-MB (CK-2) Troponin T NT-Pro-B Natriuret Pep Total Protein Albumin Triglycerides HDL Cholesterol Folate Urine WBC (Auto) Urine Creatinine Urine Total Protein Vancomycin Trough 06/13/19 06/13/19 06/13/19 04:32 05:46 13:30 WBC RBC Hgb Hct MCV MCH MCHC RDW Plt Count Lymph % (Auto) [place] % (Auto) Eos % (Auto) Lymph # [place] # Eos # Seg Neutrophils % Seg Neuts % (Manual) Lymphocytes % (Manual) Monocytes % (Manual) Eosinophils % (Manual) Nucleated RBC % Seg Neutrophils # Seg Neutrophils # Man Lymphocytes # (Manual) Monocytes # (Manual) Eosinophils # (Manual) PT INR APTT Fibrinogen POC ABG pH ABG pH POC ABG pCO2 POC ABG pO2 ABG pO2 ABG HCO3 ABG O2 Saturation ABG Base Excess ABG Hemoglobin Oxyhemoglobin Sodium Potassium Chloride Carbon Dioxide BUN 27 H Creatinine 0.7 L Glucose 253 H POC Glucose 201 H 241 H Uric Acid Calcium Phosphorus Magnesium Iron TIBC AST ALT Total Creatine Kinase CK-MB (CK-2) Troponin T NT-Pro-B Natriuret Pep Total Protein Albumin Triglycerides HDL Cholesterol Folate Urine WBC (Auto) Urine Creatinine Urine Total Protein Vancomycin Trough 06/13/19 06/13/19 06/14/19 17:33 23:49 04:50 WBC RBC Hgb Hct MCV MCH MCHC RDW Plt Count Lymph % (Auto) [place] % (Auto) Eos % (Auto) Lymph # [place] # Eos # Seg Neutrophils % Seg Neuts % (Manual) Lymphocytes % (Manual) Monocytes % (Manual) Eosinophils % (Manual) Nucleated RBC % Seg Neutrophils # Seg Neutrophils # Man Lymphocytes # (Manual) Monocytes # (Manual) Eosinophils # (Manual) PT INR APTT Fibrinogen POC ABG pH ABG pH POC ABG pCO2 POC ABG pO2 ABG pO2 ABG HCO3 ABG O2 Saturation ABG Base Excess ABG Hemoglobin Oxyhemoglobin Sodium Potassium Chloride Carbon Dioxide BUN 37 H Creatinine Glucose 256 H POC Glucose 264 H 236 H Uric Acid Calcium Phosphorus Magnesium Iron TIBC AST ALT Total Creatine Kinase CK-MB (CK-2) Troponin T NT-Pro-B Natriuret Pep Total Protein Albumin Triglycerides HDL Cholesterol Folate Urine WBC (Auto) Urine Creatinine Urine Total Protein Vancomycin Trough 06/14/19 06/14/19 06/14/19 05:26 12:31 18:32 WBC RBC Hgb Hct MCV MCH MCHC RDW Plt Count Lymph % (Auto) Osborne % (Auto) Eos % (Auto) Lymph # Osborne # Eos # Seg Neutrophils % Seg Neuts % (Manual) Lymphocytes % (Manual) Monocytes % (Manual) Eosinophils % (Manual) Nucleated RBC % Seg Neutrophils # Seg Neutrophils # Man Lymphocytes # (Manual) Monocytes # (Manual) Eosinophils # (Manual) PT INR APTT Fibrinogen POC ABG pH ABG pH POC ABG pCO2 POC ABG pO2 ABG pO2 ABG HCO3 ABG O2 Saturation ABG Base Excess ABG Hemoglobin Oxyhemoglobin Sodium Potassium Chloride Carbon Dioxide BUN Creatinine Glucose POC Glucose 239 H 116 H 247 H Uric Acid Calcium Phosphorus Magnesium Iron TIBC AST ALT Total Creatine Kinase CK-MB (CK-2) Troponin T NT-Pro-B Natriuret Pep Total Protein Albumin Triglycerides HDL Cholesterol Folate Urine WBC (Auto) Urine Creatinine Urine Total Protein Vancomycin Trough 01/06/15/19 06/15/19 23:57 04:05 05:55 WBC RBC Hgb Hct MCV MCH MCHC RDW Plt Count Lymph % (Auto) [place] % (Auto) Eos % (Auto) Lymph # [place] # Eos # Seg Neutrophils % Seg Neuts % (Manual) Lymphocytes % (Manual) Monocytes % (Manual) Eosinophils % (Manual) Nucleated RBC % Seg Neutrophils # Seg Neutrophils # Man Lymphocytes # (Manual) Monocytes # (Manual) Eosinophils # (Manual) PT INR APTT Fibrinogen POC ABG pH ABG pH POC ABG pCO2 POC ABG pO2 ABG pO2 ABG HCO3 ABG O2 Saturation ABG Base Excess ABG Hemoglobin Oxyhemoglobin Sodium Potassium Chloride Carbon Dioxide BUN 46 H Creatinine 0.7 L Glucose 265 H POC Glucose 206 H 265 H Uric Acid Calcium Phosphorus Magnesium Iron TIBC AST ALT Total Creatine Kinase CK-MB (CK-2) Troponin T NT-Pro-B Natriuret Pep Total Protein Albumin Triglycerides HDL Cholesterol Folate Urine WBC (Auto) Urine Creatinine Urine Total Protein Vancomycin Trough 06/15/19 06/15/19 06/15/19 12:08 18:45 23:41 WBC RBC Hgb Hct MCV MCH MCHC RDW Plt Count Lymph % (Auto) [place] % (Auto) Eos % (Auto) Lymph # [place] # Eos # Seg Neutrophils % Seg Neuts % (Manual) Lymphocytes % (Manual) Monocytes % (Manual) Eosinophils % (Manual) Nucleated RBC % Seg Neutrophils # Seg Neutrophils # Man Lymphocytes # (Manual) Monocytes # (Manual) Eosinophils # (Manual) PT INR APTT Fibrinogen POC ABG pH ABG pH POC ABG pCO2 POC ABG pO2 ABG pO2 ABG HCO3 ABG O2 Saturation ABG Base Excess ABG Hemoglobin Oxyhemoglobin Sodium Potassium Chloride Carbon Dioxide BUN Creatinine Glucose POC Glucose 224 H 177 H 193 H Uric Acid Calcium Phosphorus Magnesium Iron TIBC AST ALT Total Creatine Kinase CK-MB (CK-2) Troponin T NT-Pro-B Natriuret Pep Total Protein Albumin Triglycerides HDL Cholesterol Folate Urine WBC (Auto) Urine Creatinine Urine Total Protein Vancomycin Trough 06/16/19 06/16/19 06/16/19 05:00 05:00 05:40 WBC 11.9 H RBC 3.24 L Hgb 9.0 L Hct 29.0 L MCV MCH MCHC 31 L RDW 18.6 H Plt Count 111 L Lymph % (Auto) [place] % (Auto) Eos % (Auto) Lymph # [place] # Eos # Seg Neutrophils % Seg Neuts % (Manual) 92.0 H Lymphocytes % (Manual) 2.0 L Monocytes % (Manual) Eosinophils % (Manual) Nucleated RBC % Seg Neutrophils # Seg Neutrophils # Man 10.9 H Lymphocytes # (Manual) 0.2 L Monocytes # (Manual) Eosinophils # (Manual) PT INR APTT Fibrinogen POC ABG pH ABG pH POC ABG pCO2 POC ABG pO2 ABG pO2 ABG HCO3 ABG O2 Saturation ABG Base Excess ABG Hemoglobin Oxyhemoglobin Sodium Potassium Chloride Carbon Dioxide 33 H BUN 49 H Creatinine 0.7 L Glucose 264 H POC Glucose 247 H Uric Acid Calcium Phosphorus Magnesium Iron TIBC AST ALT Total Creatine Kinase CK-MB (CK-2) Troponin T NT-Pro-B Natriuret Pep Total Protein Albumin Triglycerides HDL Cholesterol Folate Urine WBC (Auto) Urine Creatinine Urine Total Protein Vancomycin Trough 06/16/19 06/16/19 06/16/19 12:03 17:11 18:11 WBC RBC Hgb Hct MCV MCH MCHC RDW Plt Count Lymph % (Auto) [place] % (Auto) Eos % (Auto) Lymph # [place] # Eos # Seg Neutrophils % Seg Neuts % (Manual) Lymphocytes % (Manual) Monocytes % (Manual) Eosinophils % (Manual) Nucleated RBC % Seg Neutrophils # Seg Neutrophils # Man Lymphocytes # (Manual) Monocytes # (Manual) Eosinophils # (Manual) PT INR APTT Fibrinogen POC ABG pH ABG pH 7.289 L POC ABG pCO2 POC ABG pO2 ABG pO2 399.3 H ABG HCO3 30.1 H ABG O2 Saturation 99.6 H ABG Base Excess ABG Hemoglobin 8.6 L Oxyhemoglobin Sodium Potassium Chloride Carbon Dioxide BUN Creatinine Glucose POC Glucose 252 H 254 H Uric Acid Calcium Phosphorus Magnesium Iron TIBC AST ALT Total Creatine Kinase CK-MB (CK-2) Troponin T NT-Pro-B Natriuret Pep Total Protein Albumin Triglycerides HDL Cholesterol Folate Urine WBC (Auto) Urine Creatinine Urine Total Protein Vancomycin Trough 06/16/19 06/17/19 06/17/19 23:16 05:30 05:53 WBC RBC Hgb Hct MCV MCH MCHC RDW Plt Count Lymph % (Auto) [place] % (Auto) Eos % (Auto) Lymph # [place] # Eos # Seg Neutrophils % Seg Neuts % (Manual) Lymphocytes % (Manual) Monocytes % (Manual) Eosinophils % (Manual) Nucleated RBC % Seg Neutrophils # Seg Neutrophils # Man Lymphocytes # (Manual) Monocytes # (Manual) Eosinophils # (Manual) PT INR APTT Fibrinogen POC ABG pH ABG pH POC ABG pCO2 POC ABG pO2 ABG pO2 ABG HCO3 ABG O2 Saturation ABG Base Excess ABG Hemoglobin Oxyhemoglobin Sodium 147 H Potassium Chloride Carbon Dioxide 32 H BUN 60 H Creatinine Glucose 205 H POC Glucose 238 H 211 H Uric Acid Calcium Phosphorus Magnesium Iron TIBC AST ALT Total Creatine Kinase CK-MB (CK-2) Troponin T NT-Pro-B Natriuret Pep Total Protein Albumin Triglycerides HDL Cholesterol Folate Urine WBC (Auto) Urine Creatinine Urine Total Protein Vancomycin Trough 06/17/19 06/17/19 06/17/19 09:50 12:27 12:45 WBC RBC 2.79 L Hgb 8.2 L Hct 24.6 L MCV MCH MCHC RDW 18.5 H Plt Count 95 L Lymph % (Auto) [place] % (Auto) Eos % (Auto) Lymph # [place] # Eos # Seg Neutrophils % Seg Neuts % (Manual) Lymphocytes % (Manual) Monocytes % (Manual) Eosinophils % (Manual) Nucleated RBC % Seg Neutrophils # Seg Neutrophils # Man Lymphocytes # (Manual) Monocytes # (Manual) Eosinophils # (Manual) PT INR APTT Fibrinogen 194 L POC ABG pH ABG pH POC ABG pCO2 POC ABG pO2 ABG pO2 ABG HCO3 ABG O2 Saturation ABG Base Excess ABG Hemoglobin Oxyhemoglobin Sodium Potassium Chloride Carbon Dioxide BUN Creatinine Glucose POC Glucose 224 H Uric Acid Calcium Phosphorus Magnesium Iron TIBC AST ALT Total Creatine Kinase CK-MB (CK-2) Troponin T NT-Pro-B Natriuret Pep Total Protein Albumin Triglycerides HDL Cholesterol Folate Urine WBC (Auto) Urine Creatinine Urine Total Protein Vancomycin Trough 06/17/19 06/17/19 06/17/19 18:41 22:00 23:23 WBC RBC Hgb Hct MCV MCH MCHC RDW Plt Count Lymph % (Auto) [place] % (Auto) Eos % (Auto) Lymph # [place] # Eos # Seg Neutrophils % Seg Neuts % (Manual) Lymphocytes % (Manual) Monocytes % (Manual) Eosinophils % (Manual) Nucleated RBC % Seg Neutrophils # Seg Neutrophils # Man Lymphocytes # (Manual) Monocytes # (Manual) Eosinophils # (Manual) PT INR APTT Fibrinogen POC ABG pH ABG pH POC ABG pCO2 POC ABG pO2 ABG pO2 ABG HCO3 ABG O2 Saturation ABG Base Excess ABG Hemoglobin Oxyhemoglobin Sodium Potassium Chloride Carbon Dioxide BUN Creatinine Glucose POC Glucose 198 H 166 H 171 H Uric Acid Calcium Phosphorus Magnesium Iron TIBC AST ALT Total Creatine Kinase CK-MB (CK-2) Troponin T NT-Pro-B Natriuret Pep Total Protein Albumin Triglycerides HDL Cholesterol Folate Urine WBC (Auto) Urine Creatinine Urine Total Protein Vancomycin Trough 06/17/19 06/18/19 06/18/19 Unknown 03:50 04:25 WBC RBC Hgb Hct MCV MCH MCHC RDW Plt Count Lymph % (Auto) [place] % (Auto) Eos % (Auto) Lymph # [place] # Eos # Seg Neutrophils % Seg Neuts % (Manual) Lymphocytes % (Manual) Monocytes % (Manual) Eosinophils % (Manual) Nucleated RBC % Seg Neutrophils # Seg Neutrophils # Man Lymphocytes # (Manual) Monocytes # (Manual) Eosinophils # (Manual) PT INR APTT Fibrinogen POC ABG pH ABG pH 7.564 H 7.499 H POC ABG pCO2 POC ABG pO2 ABG pO2 238.6 H 130.8 H ABG HCO3 33.6 H 32.5 H ABG O2 Saturation 99.4 H ABG Base Excess 10.6 H 8.5 H ABG Hemoglobin 7.9 L 8.8 L Oxyhemoglobin Sodium 151 H Potassium 3.4 L Chloride Carbon Dioxide BUN 66 H Creatinine Glucose 189 H POC Glucose Uric Acid Calcium Phosphorus Magnesium Iron TIBC AST ALT Total Creatine Kinase CK-MB (CK-2) Troponin T NT-Pro-B Natriuret Pep Total Protein Albumin Triglycerides HDL Cholesterol Folate Urine WBC (Auto) Urine Creatinine Urine Total Protein Vancomycin Trough 06/18/19 06/18/19 06/18/19 05:25 05:27 11:50 WBC RBC 2.61 L Hgb 7.4 L Hct 22.9 L MCV MCH MCHC RDW 19.9 H Plt Count 81 L Lymph % (Auto) 12.9 L [place] % (Auto) 7.7 H Eos % (Auto) Lymph # 1.1 L [place] # Eos # Seg Neutrophils % 77.4 H Seg Neuts % (Manual) Lymphocytes % (Manual) Monocytes % (Manual) Eosinophils % (Manual) Nucleated RBC % Seg Neutrophils # Seg Neutrophils # Man Lymphocytes # (Manual) Monocytes # (Manual) Eosinophils # (Manual) PT INR APTT Fibrinogen POC ABG pH ABG pH POC ABG pCO2 POC ABG pO2 ABG pO2 ABG HCO3 ABG O2 Saturation ABG Base Excess ABG Hemoglobin Oxyhemoglobin Sodium Potassium Chloride Carbon Dioxide BUN Creatinine Glucose POC Glucose 186 H 263 H Uric Acid Calcium Phosphorus Magnesium Iron TIBC AST ALT Total Creatine Kinase CK-MB (CK-2) Troponin T NT-Pro-B Natriuret Pep Total Protein Albumin Triglycerides HDL Cholesterol Folate Urine WBC (Auto) Urine Creatinine Urine Total Protein Vancomycin Trough 06/18/19 06/18/19 06/18/19 18:35 21:31 23:21 WBC RBC Hgb Hct MCV MCH MCHC RDW Plt Count Lymph % (Auto) [place] % (Auto) Eos % (Auto) Lymph # [place] # Eos # Seg Neutrophils % Seg Neuts % (Manual) Lymphocytes % (Manual) Monocytes % (Manual) Eosinophils % (Manual) Nucleated RBC % Seg Neutrophils # Seg Neutrophils # Man Lymphocytes # (Manual) Monocytes # (Manual) Eosinophils # (Manual) PT INR APTT Fibrinogen POC ABG pH ABG pH POC ABG pCO2 POC ABG pO2 ABG pO2 ABG HCO3 ABG O2 Saturation ABG Base Excess ABG Hemoglobin Oxyhemoglobin Sodium Potassium Chloride Carbon Dioxide BUN Creatinine Glucose POC Glucose 154 H 186 H 202 H Uric Acid Calcium Phosphorus Magnesium Iron TIBC AST ALT Total Creatine Kinase CK-MB (CK-2) Troponin T NT-Pro-B Natriuret Pep Total Protein Albumin Triglycerides HDL Cholesterol Folate Urine WBC (Auto) Urine Creatinine Urine Total Protein Vancomycin Trough 06/19/19 06/19/19 06/19/19 03:18 04:30 04:30 WBC RBC 2.65 L Hgb 7.5 L Hct 23.1 L MCV MCH MCHC RDW 19.4 H Plt Count 74 L Lymph % (Auto) 8.8 L [place] % (Auto) 9.4 H Eos % (Auto) 4.7 H Lymph # 0.6 L [place] # Eos # Seg Neutrophils % 76.6 H Seg Neuts % (Manual) Lymphocytes % (Manual) Monocytes % (Manual) Eosinophils % (Manual) Nucleated RBC % Seg Neutrophils # Seg Neutrophils # Man Lymphocytes # (Manual) Monocytes # (Manual) Eosinophils # (Manual) PT INR APTT Fibrinogen POC ABG pH ABG pH 7.452 H POC ABG pCO2 POC ABG pO2 ABG pO2 105.5 H ABG HCO3 32.3 H ABG O2 Saturation ABG Base Excess 7.6 H ABG Hemoglobin 6.9 L Oxyhemoglobin Sodium 150 H Potassium 3.3 L Chloride Carbon Dioxide 31 H BUN 56 H Creatinine Glucose 197 H POC Glucose Uric Acid Calcium Phosphorus Magnesium Iron TIBC AST ALT Total Creatine Kinase CK-MB (CK-2) Troponin T NT-Pro-B Natriuret Pep Total Protein Albumin Triglycerides 210 H HDL Cholesterol Folate Urine WBC (Auto) Urine Creatinine Urine Total Protein Vancomycin Trough 06/19/19 06/19/19 06/19/19 05:24 12:18 18:55 WBC RBC Hgb Hct MCV MCH MCHC RDW Plt Count Lymph % (Auto) [place] % (Auto) Eos % (Auto) Lymph # [place] # Eos # Seg Neutrophils % Seg Neuts % (Manual) Lymphocytes % (Manual) Monocytes % (Manual) Eosinophils % (Manual) Nucleated RBC % Seg Neutrophils # Seg Neutrophils # Man Lymphocytes # (Manual) Monocytes # (Manual) Eosinophils # (Manual) PT INR APTT Fibrinogen POC ABG pH ABG pH POC ABG pCO2 POC ABG pO2 ABG pO2 ABG HCO3 ABG O2 Saturation ABG Base Excess ABG Hemoglobin Oxyhemoglobin Sodium Potassium Chloride Carbon Dioxide BUN Creatinine Glucose POC Glucose 176 H 260 H 192 H Uric Acid Calcium Phosphorus Magnesium Iron TIBC AST ALT Total Creatine Kinase CK-MB (CK-2) Troponin T NT-Pro-B Natriuret Pep Total Protein Albumin Triglycerides HDL Cholesterol Folate Urine WBC (Auto) Urine Creatinine Urine Total Protein Vancomycin Trough 06/19/19 06/19/19 06/20/19 22:57 23:46 04:40 WBC RBC 2.79 L Hgb 7.9 L Hct 24.3 L MCV MCH MCHC RDW 19.6 H Plt Count 92 L Lymph % (Auto) 9.2 L [place] % (Auto) 12.0 H Eos % (Auto) 5.2 H Lymph # 0.9 L [place] # 1.2 H Eos # 0.5 H Seg Neutrophils % 73.3 H Seg Neuts % (Manual) Lymphocytes % (Manual) Monocytes % (Manual) Eosinophils % (Manual) Nucleated RBC % Seg Neutrophils # Seg Neutrophils # Man Lymphocytes # (Manual) Monocytes # (Manual) Eosinophils # (Manual) PT INR APTT Fibrinogen POC ABG pH ABG pH POC ABG pCO2 POC ABG pO2 ABG pO2 ABG HCO3 ABG O2 Saturation ABG Base Excess ABG Hemoglobin Oxyhemoglobin Sodium Potassium Chloride Carbon Dioxide BUN Creatinine Glucose POC Glucose 145 H 216 H Uric Acid Calcium Phosphorus Magnesium Iron TIBC AST ALT Total Creatine Kinase CK-MB (CK-2) Troponin T NT-Pro-B Natriuret Pep Total Protein Albumin Triglycerides HDL Cholesterol Folate Urine WBC (Auto) Urine Creatinine Urine Total Protein Vancomycin Trough 06/20/19 06/20/19 06/20/19 04:40 05:40 05:54 WBC RBC Hgb Hct MCV MCH MCHC RDW Plt Count Lymph % (Auto) [place] % (Auto) Eos % (Auto) Lymph # [place] # Eos # Seg Neutrophils % Seg Neuts % (Manual) Lymphocytes % (Manual) Monocytes % (Manual) Eosinophils % (Manual) Nucleated RBC % Seg Neutrophils # Seg Neutrophils # Man Lymphocytes # (Manual) Monocytes # (Manual) Eosinophils # (Manual) PT INR APTT Fibrinogen POC ABG pH ABG pH 7.455 H POC ABG pCO2 POC ABG pO2 ABG pO2 60.9 L ABG HCO3 30.3 H ABG O2 Saturation 92.3 L ABG Base Excess 5.8 H ABG Hemoglobin 8.2 L Oxyhemoglobin 90.1 L Sodium Potassium 3.5 L Chloride Carbon Dioxide BUN 59 H Creatinine Glucose 200 H POC Glucose 190 H Uric Acid Calcium Phosphorus Magnesium 1.60 L Iron TIBC AST ALT Total Creatine Kinase CK-MB (CK-2) Troponin T NT-Pro-B Natriuret Pep Total Protein Albumin Triglycerides HDL Cholesterol Folate Urine WBC (Auto) Urine Creatinine Urine Total Protein Vancomycin Trough 06/20/19 06/20/19 06/20/19 09:12 09:12 12:24 WBC RBC Hgb Hct MCV MCH MCHC RDW Plt Count Lymph % (Auto) [place] % (Auto) Eos % (Auto) Lymph # [place] # Eos # Seg Neutrophils % Seg Neuts % (Manual) Lymphocytes % (Manual) Monocytes % (Manual) Eosinophils % (Manual) Nucleated RBC % Seg Neutrophils # Seg Neutrophils # Man Lymphocytes # (Manual) Monocytes # (Manual) Eosinophils # (Manual) PT INR APTT Fibrinogen POC ABG pH ABG pH POC ABG pCO2 POC ABG pO2 ABG pO2 ABG HCO3 ABG O2 Saturation ABG Base Excess ABG Hemoglobin Oxyhemoglobin Sodium Potassium Chloride Carbon Dioxide BUN Creatinine Glucose POC Glucose 225 H Uric Acid Calcium Phosphorus Magnesium Iron 45 L TIBC 110 L AST ALT Total Creatine Kinase CK-MB (CK-2) Troponin T NT-Pro-B Natriuret Pep Total Protein Albumin Triglycerides HDL Cholesterol Folate 7.01 L Urine WBC (Auto) Urine Creatinine Urine Total Protein Vancomycin Trough 06/20/19 06/20/19 06/20/19 17:42 21:55 23:24 WBC RBC Hgb Hct MCV MCH MCHC RDW Plt Count Lymph % (Auto) [place] % (Auto) Eos % (Auto) Lymph # [place] # Eos # Seg Neutrophils % Seg Neuts % (Manual) Lymphocytes % (Manual) Monocytes % (Manual) Eosinophils % (Manual) Nucleated RBC % Seg Neutrophils # Seg Neutrophils # Man Lymphocytes # (Manual) Monocytes # (Manual) Eosinophils # (Manual) PT INR APTT Fibrinogen POC ABG pH ABG pH POC ABG pCO2 POC ABG pO2 ABG pO2 ABG HCO3 ABG O2 Saturation ABG Base Excess ABG Hemoglobin Oxyhemoglobin Sodium Potassium Chloride Carbon Dioxide BUN Creatinine Glucose POC Glucose 255 H 218 H 215 H Uric Acid Calcium Phosphorus Magnesium Iron TIBC AST ALT Total Creatine Kinase CK-MB (CK-2) Troponin T NT-Pro-B Natriuret Pep Total Protein Albumin Triglycerides HDL Cholesterol Folate Urine WBC (Auto) Urine Creatinine Urine Total Protein Vancomycin Trough 06/21/19 06/21/19 06/21/19 03:32 03:40 05:20 WBC 12.8 H RBC 3.03 L Hgb 8.5 L Hct 26.2 L MCV MCH MCHC RDW 19.4 H Plt Count 131 L Lymph % (Auto) [place] % (Auto) Eos % (Auto) Lymph # [place] # Eos # Seg Neutrophils % Seg Neuts % (Manual) 78.0 H Lymphocytes % (Manual) 5.0 L Monocytes % (Manual) 11.0 H Eosinophils % (Manual) Nucleated RBC % Seg Neutrophils # Seg Neutrophils # Man 10.0 H Lymphocytes # (Manual) 0.6 L Monocytes # (Manual) 1.4 H Eosinophils # (Manual) 0.5 H PT INR APTT Fibrinogen POC ABG pH ABG pH 7.476 H POC ABG pCO2 POC ABG pO2 ABG pO2 162.0 H ABG HCO3 26.8 H ABG O2 Saturation 99.1 H ABG Base Excess 3.1 H ABG Hemoglobin 8.6 L Oxyhemoglobin Sodium Potassium Chloride Carbon Dioxide BUN Creatinine Glucose POC Glucose 202 H Uric Acid Calcium Phosphorus Magnesium Iron TIBC AST ALT Total Creatine Kinase CK-MB (CK-2) Troponin T NT-Pro-B Natriuret Pep Total Protein Albumin Triglycerides HDL Cholesterol Folate Urine WBC (Auto) Urine Creatinine Urine Total Protein Vancomycin Trough 06/21/19 05:20 WBC RBC Hgb Hct MCV MCH MCHC RDW Plt Count Lymph % (Auto) [place] % (Auto) Eos % (Auto) Lymph # [place] # Eos # Seg Neutrophils % Seg Neuts % (Manual) Lymphocytes % (Manual) Monocytes % (Manual) Eosinophils % (Manual) Nucleated RBC % Seg Neutrophils # Seg Neutrophils # Man Lymphocytes # (Manual) Monocytes # (Manual) Eosinophils # (Manual) PT INR APTT Fibrinogen POC ABG pH ABG pH POC ABG pCO2 POC ABG pO2 ABG pO2 ABG HCO3 ABG O2 Saturation ABG Base Excess ABG Hemoglobin Oxyhemoglobin Sodium Potassium Chloride 97.7 L Carbon Dioxide BUN 69 H Creatinine Glucose 239 H POC Glucose Uric Acid Calcium Phosphorus Magnesium 2.40 H Iron TIBC AST ALT Total Creatine Kinase CK-MB (CK-2) Troponin T NT-Pro-B Natriuret Pep Total Protein Albumin Triglycerides HDL Cholesterol Folate Urine WBC (Auto) Urine Creatinine Urine Total Protein Vancomycin Trough
--- NOTE | 2019-06-21 11:49 | Progress Note ---
Assessment and Plan Assessment: * Acute kidney injury attributed to vancomycin toxicity - recovered, previously on hemodialysis * Hypernatremia * Acute hypoxic/hypercapneic respiratory failure * Hypertension * Hypokalemia * Morbid obesity Plan: * Renal function has recovered. No indication for hemodialysis * diuresis prn * stop ARB, deshawn with h/o of dion and atn * Will arrange removal of permcath upcoming week * Vent management per pulmonary medicine - note plans for trach/PEG * Dose medications for renal function * restart minoxidil prn * Avoid nephrotoxins Subjective Date of service: 06/21/19 Principal diagnosis: LOW PLT Interval history: resting in bed today Objective - Exam Narrative Exam: General: No acute distress/ intubated and sedated HEENT: ET tube in place Neck: Supple Chest:coarse mechanical breath sounds, PRVC with FiO2 50% Heart: Regular rate and rhythm Abdomen: Soft nontender Extremity: no edema Psych: sedated Derm: No petechial rash - Vital Signs Vital signs: Vital Signs - 12hr 06/21/19 06/21/19 06/21/19 00:00 00:15 00:25 Temperature Pulse Rate 98 H 96 H 96 H Pulse Rate [ 96 H From Monitor] Respiratory 22 18 Rate Blood Pressure 119/51 117/44 119/51 O2 Sat by Pulse 93 95 96 Oximetry 06/21/19 06/21/19 06/21/19 00:30 00:46 01:00 Temperature Pulse Rate 96 H 94 H 93 H Pulse Rate [ From Monitor] Respiratory 24 19 20 Rate Blood Pressure 107/44 92/33 91/31 O2 Sat by Pulse 94 94 93 Oximetry 06/21/19 06/21/19 06/21/19 01:15 01:30 01:45 Temperature Pulse Rate 98 H 99 H 97 H Pulse Rate [ From Monitor] Respiratory 16 19 15 Rate Blood Pressure 143/61 113/44 105/36 O2 Sat by Pulse 93 95 94 Oximetry 06/21/19 06/21/19 06/21/19 02:00 02:15 02:30 Temperature Pulse Rate 97 H 95 H 98 H Pulse Rate [ From Monitor] Respiratory 20 13 22 Rate Blood Pressure 97/37 112/41 90/35 O2 Sat by Pulse 94 95 96 Oximetry 06/21/19 06/21/19 06/21/19 02:45 03:00 03:15 Temperature Pulse Rate 95 H 94 H 95 H Pulse Rate [ From Monitor] Respiratory 18 17 15 Rate Blood Pressure 101/44 97/43 116/46 O2 Sat by Pulse 96 95 96 Oximetry 06/21/19 06/21/19 06/21/19 03:30 03:40 03:45 Temperature Pulse Rate 96 H 99 H 98 H Pulse Rate [ From Monitor] Respiratory 18 20 Rate Blood Pressure 111/47 111/47 110/48 O2 Sat by Pulse 96 97 96 Oximetry 06/21/19 06/21/19 06/21/19 04:00 04:08 04:15 Temperature 98.9 F Pulse Rate 100 H 98 H Pulse Rate [ 97 H From Monitor] Respiratory 17 17 Rate Blood Pressure 108/54 113/45 O2 Sat by Pulse 95 96 Oximetry 06/21/19 06/21/19 06/21/19 04:30 04:45 05:00 Temperature Pulse Rate 100 H 98 H 96 H Pulse Rate [ From Monitor] Respiratory 19 20 25 H Rate Blood Pressure 122/56 101/50 101/50 O2 Sat by Pulse 95 95 96 Oximetry 06/21/19 06/21/19 06/21/19 05:15 05:30 05:45 Temperature Pulse Rate 100 H 100 H 98 H Pulse Rate [ From Monitor] Respiratory 20 16 20 Rate Blood Pressure 105/51 97/52 103/51 O2 Sat by Pulse 92 95 95 Oximetry 06/21/19 06/21/19 06/21/19 06:00 06:15 06:30 Temperature Pulse Rate 99 H 98 H Pulse Rate [ From Monitor] Respiratory 18 17 Rate Blood Pressure 116/55 114/51 130/71 O2 Sat by Pulse 98 100 Oximetry 06/21/19 06/21/19 06/21/19 06:46 07:00 07:15 Temperature Pulse Rate 96 H 99 H 100 H Pulse Rate [ From Monitor] Respiratory 18 21 22 Rate Blood Pressure 139/74 141/64 135/64 O2 Sat by Pulse 98 99 98 Oximetry 06/21/19 06/21/19 06/21/19 07:30 07:46 08:00 Temperature 99.1 F Pulse Rate 90 90 104 H Pulse Rate [ 91 H From Monitor] Respiratory 22 20 22 Rate Blood Pressure 140/47 106/39 158/75 O2 Sat by Pulse 99 96 99 Oximetry 06/21/19 06/21/19 06/21/19 08:15 08:30 08:45 Temperature Pulse Rate 99 H 100 H 100 H Pulse Rate [ From Monitor] Respiratory 21 23 19 Rate Blood Pressure 140/57 133/52 138/61 O2 Sat by Pulse 99 100 100 Oximetry 06/21/19 06/21/19 06/21/19 09:00 09:15 10:33 Temperature Pulse Rate 101 H 91 H 97 H Pulse Rate [ From Monitor] Respiratory 16 20 Rate Blood Pressure 130/51 126/47 120/52 O2 Sat by Pulse 100 98 Oximetry 06/21/19 11:25 Temperature Pulse Rate 93 H Pulse Rate [ From Monitor] Respiratory Rate Blood Pressure 127/55 O2 Sat by Pulse 98 Oximetry - Lab 06/21/19 05:20 06/21/19 05:20 Most recent lab results ABG pH 7.476 pH Units (7.350-7.450) H 06/21/19 03:40 ABG pCO2 37.1 mm Hg 06/21/19 03:40 ABG pO2 162.0 mm Hg (80.0-90.0) H 06/21/19 03:40 ABG HCO3 26.8 mmol/L (20.0-26.0) H 06/21/19 03:40 ABG O2 Saturation 99.1 % (95.0-99.0) H 06/21/19 03:40 Calcium 9.1 mg/dL (8.4-10.2) 06/21/19 05:20 Phosphorus 3.70 mg/dL (2.5-4.5) 06/10/19 05:45 Magnesium 2.40 mg/dL (1.7-2.3) H 06/21/19 05:20 Urine Creatinine 292.8 mg/dL (0.1-20.0) H 05/07/19 22:40 Urine Sodium 11 mmol/L 05/07/19 22:40 Urine Total Protein 269 mg/dL (5-11.8) H 05/07/19 22:40 Medications & Allergies - Medications Allergies/Adverse Reactions: Allergies No Known Allergies Allergy (Verified 05/01/19 20:27) Home Medications: Home Medications Medication Instructions Recorded Confirmed Last Taken Type No Known Home Medications [No 05/03/19 05/03/19 Unknown History Reported Home Medications] Active Medications: Generic Name Dose Route Start Last Admin Trade Name Freq PRN Reason Stop Dose Admin Acetaminophen 650 mg 06/17/19 10:00 06/17/19 21:20 Tylenol PO 650 mg Q6H PRN Administration FOR TEMP >/=100.4 Lipase/Protease/Amylase 1 each 05/14/19 15:01 Pancremannie Fletcher 10,500 Unit FEEDTUBE PRN PRN For Clogged Feeding Tube Dextrose 50 gm 05/01/19 20:24 D50w (25gm) Vial IV Q30MIN PRN Hypoglycemia Protocol Famotidine 20 mg 06/17/19 10:00 06/21/19 10:33 Pepcid PO 20 mg BID VICKEY Administration Ferrous Sulfate 308 mg 06/18/19 12:00 06/21/19 10:34 Ferrous Sulfate PO 308 mg QDAY VICKEY Administration Hydrophilic Ointment 1 applic 06/16/19 17:34 Vaseline Lip Therapy TP Q2HR PRN Dry Lips Propofol 1,000 mg in 100 mls @ 7.716 mls/hr 06/16/19 21:00 06/21/19 09:30 Diprivan 10 Mg/Ml IV 0 mcg/kg/min TITR VICKEY 0 mls/hr Titration Protocol 5 MCG/KG/MIN Fentanyl Citrate 2,000 mcg in 100 mls @ 12.86 mls/hr 06/17/19 14:00 Fentanyl Drip Premix IV TITR VICKEY Protocol 1 MCG/KG/HR Insulin Glargine 20 units 06/20/19 22:00 06/20/19 21:45 Lantus SUB-Q 20 units QHS VICKEY Administration Insulin Human Lispro 0 unit 06/01/19 14:00 06/21/19 10:37 Humalog SUB-Q Not Given Q6HR [facility] Protocol Labetalol HCl 10 mg 06/11/19 22:48 06/19/19 10:23 Labetalol IV 10 mg Q4H PRN Administration BP >170/105; hold for HR <60 Methylprednisolone Sodium Succinate 20 mg 06/20/19 22:00 06/21/19 10:36 Solu-Medrol IV 20 mg Q12HR VICKEY Administration Multi-Ingred Cream/Lotion/Oil/Oint 1 applic 06/16/19 18:00 Artificial Tears Ophth Oint OU Q4HR PRN Dry Eye(s) Potassium Chloride 40 meq 06/19/19 10:00 06/21/19 10:33 Potassium Chloride FEEDTUBE 40 meq QDAY VICKEY Administration Simple Syrup 15 ml 05/14/19 15:01 Simple Syrup FEEDTUBE PRN PRN Hypoglycemia Simple Syrup 30 ml 05/14/19 15:01 Simple Syrup FEEDTUBE PRN PRN Hypoglycemia Sodium Bicarbonate 325 mg 05/14/19 15:01 Sodium Bicarbonate FEEDTUBE PRN PRN For Clogged Feeding Tube Valsartan 40 mg 06/20/19 21:36 06/21/19 10:33 Diovan FEEDTUBE 40 mg BID VICKEY Administration
--- NOTE | 2019-06-21 14:01 | Progress Note ---
Assessment and Plan - Patient Problems (1) Acute respiratory failure Current Visit: Yes Status: Acute Qualifiers: Respiratory failure complication: hypoxia Qualified Code(s): J96.01 - Acute respiratory failure with hypoxia Plan to address problem: Pt stable. Discussed plan with Dr. Chen. If PEG is able to be placed, then will place 8 Shiley trach. If not, then will place 6 to facilitate early feeding (hopefully). Scheduled for tomorrow in [place]. Please call with questions. time=20 min Subjective Date of service: 06/21/19 Patient Reports: Positive: no new complaints Objective Vital Signs - 12hr 06/21/19 06/21/19 06/21/19 02:00 02:15 02:30 Temperature Pulse Rate 97 H 95 H 98 H Pulse Rate [ From Monitor] Respiratory 20 13 22 Rate Blood Pressure 97/37 112/41 90/35 O2 Sat by Pulse 94 95 96 Oximetry 06/21/19 06/21/19 06/21/19 02:45 03:00 03:15 Temperature Pulse Rate 95 H 94 H 95 H Pulse Rate [ From Monitor] Respiratory 18 17 15 Rate Blood Pressure 101/44 97/43 116/46 O2 Sat by Pulse 96 95 96 Oximetry 06/21/19 06/21/19 06/21/19 03:30 03:40 03:45 Temperature Pulse Rate 96 H 99 H 98 H Pulse Rate [ From Monitor] Respiratory 18 20 Rate Blood Pressure 111/47 111/47 110/48 O2 Sat by Pulse 96 97 96 Oximetry 06/21/19 06/21/19 06/21/19 04:00 04:08 04:15 Temperature 98.9 F Pulse Rate 100 H 98 H Pulse Rate [ 97 H From Monitor] Respiratory 17 17 Rate Blood Pressure 108/54 113/45 O2 Sat by Pulse 95 96 Oximetry 06/21/19 06/21/19 06/21/19 04:30 04:45 05:00 Temperature Pulse Rate 100 H 98 H 96 H Pulse Rate [ From Monitor] Respiratory 19 20 25 H Rate Blood Pressure 122/56 101/50 101/50 O2 Sat by Pulse 95 95 96 Oximetry 06/21/19 06/21/19 06/21/19 05:15 05:30 05:45 Temperature Pulse Rate 100 H 100 H 98 H Pulse Rate [ From Monitor] Respiratory 20 16 20 Rate Blood Pressure 105/51 97/52 103/51 O2 Sat by Pulse 92 95 95 Oximetry 06/21/19 06/21/19 06/21/19 06:00 06:15 06:30 Temperature Pulse Rate 99 H 98 H Pulse Rate [ From Monitor] Respiratory 18 17 Rate Blood Pressure 116/55 114/51 130/71 O2 Sat by Pulse 98 100 Oximetry 06/21/19 06/21/19 06/21/19 06:46 07:00 07:15 Temperature Pulse Rate 96 H 99 H 100 H Pulse Rate [ From Monitor] Respiratory 18 21 22 Rate Blood Pressure 139/74 141/64 135/64 O2 Sat by Pulse 98 99 98 Oximetry 06/21/19 06/21/19 06/21/19 07:30 07:46 08:00 Temperature 99.1 F Pulse Rate 90 90 104 H Pulse Rate [ 91 H From Monitor] Respiratory 22 20 22 Rate Blood Pressure 140/47 106/39 158/75 O2 Sat by Pulse 99 96 99 Oximetry 06/21/19 06/21/19 06/21/19 08:15 08:30 08:45 Temperature Pulse Rate 99 H 100 H 100 H Pulse Rate [ From Monitor] Respiratory 21 23 19 Rate Blood Pressure 140/57 133/52 138/61 O2 Sat by Pulse 99 100 100 Oximetry 06/21/19 06/21/19 06/21/19 09:00 09:15 09:30 Temperature Pulse Rate 101 H 91 H 93 H Pulse Rate [ From Monitor] Respiratory 16 20 19 Rate Blood Pressure 130/51 126/47 114/41 O2 Sat by Pulse 100 98 99 Oximetry 06/21/19 06/21/19 06/21/19 09:45 10:00 10:15 Temperature Pulse Rate 91 H 98 H 98 H Pulse Rate [ From Monitor] Respiratory 21 16 19 Rate Blood Pressure 107/37 127/59 121/46 O2 Sat by Pulse 98 99 99 Oximetry 06/21/19 06/21/19 06/21/19 10:30 10:33 10:45 Temperature Pulse Rate 97 H 94 H Pulse Rate [ From Monitor] Respiratory 28 H 21 Rate Blood Pressure 120/52 120/52 129/47 O2 Sat by Pulse 98 100 Oximetry 06/21/19 06/21/19 06/21/19 11:00 11:15 11:25 Temperature Pulse Rate 98 H 96 H 93 H Pulse Rate [ From Monitor] Respiratory 19 23 Rate Blood Pressure 120/48 127/55 127/55 O2 Sat by Pulse 98 98 98 Oximetry 06/21/19 06/21/19 06/21/19 11:30 11:45 12:00 Temperature Pulse Rate 93 H 87 86 Pulse Rate [ From Monitor] Respiratory 19 11 L 10 L Rate Blood Pressure 132/53 111/48 116/50 O2 Sat by Pulse 97 97 99 Oximetry 06/21/19 06/21/19 06/21/19 12:15 12:30 12:45 Temperature Pulse Rate 90 95 H 97 H Pulse Rate [ From Monitor] Respiratory 8 L 18 21 Rate Blood Pressure 103/40 120/58 113/48 O2 Sat by Pulse 97 98 97 Oximetry 06/21/19 06/21/19 06/21/19 13:00 13:15 13:30 Temperature Pulse Rate 95 H 93 H 97 H Pulse Rate [ From Monitor] Respiratory 21 17 22 Rate Blood Pressure 120/53 116/54 119/52 O2 Sat by Pulse 96 97 96 Oximetry 06/21/19 13:45 Temperature Pulse Rate 86 Pulse Rate [ From Monitor] Respiratory 21 Rate Blood Pressure 121/48 O2 Sat by Pulse 96 Oximetry - General physical appearance no distress, no pain, obese - ENT other (ETT in place. ) - Neck trachea midline, no venous distension, other (no signs of infection) - Respiratory normal expansion, normal respiratory effort - Abdomen soft - Labs 06/21/19 05:20 06/21/19 05:20 Diabetes panel 06/21/19 Range/Units 05:20 Sodium 141 (137-145) mmol/L Potassium 3.9 (3.6-5.0) mmol/L Chloride 97.7 L (98-107) mmol/L Carbon Dioxide 28 (22-30) mmol/L BUN 69 H (9-20) mg/dL Creatinine 1.3 (0.8-1.5) mg/dL Glucose 239 H (75-100) mg/dL Calcium 9.1 (8.4-10.2) mg/dL Calcium panel 06/21/19 Range/Units 05:20 Calcium 9.1 (8.4-10.2) mg/dL Pituitary panel 06/21/19 Range/Units 05:20 Sodium 141 (137-145) mmol/L Potassium 3.9 (3.6-5.0) mmol/L Chloride 97.7 L (98-107) mmol/L Carbon Dioxide 28 (22-30) mmol/L BUN 69 H (9-20) mg/dL Creatinine 1.3 (0.8-1.5) mg/dL Glucose 239 H (75-100) mg/dL Calcium 9.1 (8.4-10.2) mg/dL Adrenal panel 06/21/19 Range/Units 05:20 Sodium 141 (137-145) mmol/L Potassium 3.9 (3.6-5.0) mmol/L Chloride 97.7 L (98-107) mmol/L Carbon Dioxide 28 (22-30) mmol/L BUN 69 H (9-20) mg/dL Creatinine 1.3 (0.8-1.5) mg/dL Glucose 239 H (75-100) mg/dL Calcium 9.1 (8.4-10.2) mg/dL
--- NOTE | 2019-06-21 14:22 | Anesthesia Consultation ---
Anesthesia Consult and Med Hx Date of service: 06/21/19 - Airway Anesthetic Teeth Evaluation: Good ROM Head & Neck: Adequate Mental/Hyoid Distance: Adequate Mallampati Class: Class IV Intubation Access Assessment: Difficult - Pre-Operative Health Status ASA Pre-Surgery Classification: ASA4 Proposed Anesthetic Plan: General - Pulmonary Hx Respiratory Symptoms: Yes (Acute respiratory failure. Patient is intubated, on the vent) Hx Sleep Apnea: Yes (Patient was non compliant) - Cardiovascular System Hx Hypertension: Yes Hx Heart Attack/AMI: Yes (TTE shows mild cardiomegaly; EF 55-60%; probable CHF) Hx Pacemaker: No Hx Internal Defibrillator: No - Gastrointestinal Hx Gastroesophageal Reflux Disease: No (dysphagea) - Endocrine Hx End Stage Renal Disease: Yes Hx Insulin Dependent Diabetes: Yes - Other Systems Hx Obesity: Yes (BMI 69) - Additional Comments Anesthesia Medical History Comments: Suspected anoxic injury from cardiac arrest. Respiratory failure, intubated. Required tracheostomy anf PEG placement
--- NOTE | 2019-06-21 14:53 | Progress Note ---
Assessment and Plan Assessment and plan: 34-year-old man with morbid obesity was brought to the hospital for shortness of breath and insomnia. He was found to have severe hypoxia and bradycardia who then became pulseless, he was cyanotic and he was intubated after receiving CPR with 2 rounds of epinephrine. Hypertensive emergency off cardene drip since 06/13, resolved, BP meds discontinued Fever Flu neg, UA neg, cxr no infiltrate, BC in progress ID consult appreciated, monitor off abx Acute respiratory failure with hypoxia and hypercapnia on mechanical ventilator greater than 96 hours -Obesity hypoventilation Patient extubated 06/07 after being on the ventilator for 37 days, now reintubated on 06/16 plan for trache/peg, dw GS Status post cardiac arrest anoxic/ischemic brain injury Patient's mentation is improved ., EEG was negative for seizures and neurology consult appreciated. Severe malnutrition Dysphasia; dw with his mom, she is agreeable to PEG tube, GS consulted -Dietitian input appreciated, continue tube feeds Anemia of chronic disease; transfuse to keep hemoglobin above 7, iron supplements Thrombocytopenia; worsening, question if this is HIT. 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 Nephrology does not recommend further diuresis at this time. hypernatremia; resolved, discontinue D5 water hypokalemia/hypomagnesemia; repleted Morbid obesity; will need weight loss program upon discharge DVT prophylaxis; scd for now Disposition; does not have a pay source for rehab, therefore home with home health services CCT 33 minutes JOHANNA is janna Alexander [phone] History Interval history: No fever No vomiting no seizure-like activity No diarrhea No agitation No obvious discomfort Hospitalist Physical - Physical exam Narrative exam: General.: Morbidly obese HEENT: Moist mucous membranes, extraocular muscles intact, no lymphadenopathy Neck: supple Cardiac: S1-S2 heard Lungs: clear to auscultation bilaterally Abdomen: soft , nontender, nondistended, bowel sounds positive Extremities: edema in all extremities, but improved Skin: no rash or lesions Neurologic: He is awake and alert. He is currently nonverbal. But he nods and shakes his head. He obeys commands, intubated Psych: calm, - Constitutional Vitals: Temp Pulse Resp BP Pulse Ox 99.1 F 86 21 121/48 96 06/21/19 08:00 06/21/19 13:45 06/21/19 13:45 06/21/19 13:45 06/21/19 13:45 General appearance: Present: no acute distress Results - Labs CBC & Chem 7: 06/21/19 05:20 06/21/19 05:20 Labs: Laboratory Last Values WBC 12.8 K/mm3 (4.5-11.0) H 06/21/19 05:20 RBC 3.03 M/mm3 (3.65-5.03) L 06/21/19 05:20 Hgb 8.5 gm/dl (11.8-15.2) L 06/21/19 05:20 Hct 26.2 % (35.5-45.6) L 06/21/19 05:20 MCV 86 fl (84-94) 06/21/19 05:20 MCH 28 pg (28-32) 06/21/19 05:20 MCHC 32 % (32-34) 06/21/19 05:20 RDW 19.4 % (13.2-15.2) H 06/21/19 05:20 Plt Count 131 K/mm3 (140-440) L 06/21/19 05:20 Lymph % (Auto) 9.2 % (13.4-35.0) L 06/20/19 04:40 [place] % (Auto) 12.0 % (0.0-7.3) H 06/20/19 04:40 Eos % (Auto) 5.2 % (0.0-4.3) H 06/20/19 04:40 Baso % (Auto) 0.3 % (0.0-1.8) 06/20/19 04:40 Lymph # 0.9 K/mm3 (1.2-5.4) L 06/20/19 04:40 [place] # 1.2 K/mm3 (0.0-0.8) H 06/20/19 04:40 Eos # 0.5 K/mm3 (0.0-0.4) H 01/26/20 04:40 Baso # 0.0 K/mm3 (0.0-0.1) 06/20/19 04:40 Add Manual Diff Complete 06/21/19 05:20 Total Counted 100 06/21/19 05:20 Seg Neutrophils % 73.3 % (40.0-70.0) H 06/20/19 04:40 Seg Neuts % (Manual) 78.0 % (40.0-70.0) H 06/21/19 05:20 Band Neutrophils % 1.0 % 06/21/19 05:20 Lymphocytes % (Manual) 5.0 % (13.4-35.0) L 06/21/19 05:20 Reactive Lymphs % (Man) 0 % 06/21/19 05:20 Monocytes % (Manual) 11.0 % (0.0-7.3) H 06/21/19 05:20 Eosinophils % (Manual) 4.0 % (0.0-4.3) 06/21/19 05:20 Basophils % (Manual) 0 % (0.0-1.8) 06/21/19 05:20 Metamyelocytes % 1.0 % 06/21/19 05:20 Myelocytes % 0 % 06/21/19 05:20 Promyelocytes % 0 % 06/21/19 05:20 Blast Cells % 0 % 06/21/19 05:20 Nucleated RBC % Not Reportable 06/21/19 05:20 Seg Neutrophils # 7.6 K/mm3 (1.8-7.7) 06/20/19 04:40 Seg Neutrophils # Man 10.0 K/mm3 (1.8-7.7) H 06/21/19 05:20 Band Neutrophils # 0.1 K/mm3 06/21/19 05:20 Lymphocytes # (Manual) 0.6 K/mm3 (1.2-5.4) L 06/21/19 05:20 Abs React Lymphs (Man) 0.0 K/mm3 06/21/19 05:20 Monocytes # (Manual) 1.4 K/mm3 (0.0-0.8) H 06/21/19 05:20 Eosinophils # (Manual) 0.5 K/mm3 (0.0-0.4) H 06/21/19 05:20 Basophils # (Manual) 0.0 K/mm3 (0.0-0.1) 06/21/19 05:20 Metamyelocytes # 0.1 K/mm3 06/21/19 05:20 Myelocytes # 0.0 K/mm3 06/21/19 05:20 Promyelocytes # 0.0 K/mm3 06/21/19 05:20 Blast Cells # 0.0 K/mm3 06/21/19 05:20 WBC Morphology Not Reportable 06/21/19 05:20 Hypersegmented Neuts Not Reportable 06/21/19 05:20 Hyposegmented Neuts Not Reportable 06/21/19 05:20 Hypogranular Neuts Not Reportable 06/21/19 05:20 Smudge Cells Not Reportable 06/21/19 05:20 Toxic Granulation Not Reportable 06/21/19 05:20 Toxic Vacuolation Not Reportable 06/21/19 05:20 Dohle Bodies Not Reportable 06/21/19 05:20 Pelger-Huet Anomaly Not Reportable 06/21/19 05:20 Renea Rods Not Reportable 06/21/19 05:20 Platelet Estimate Consistent w auto 06/21/19 05:20 Clumped Platelets Not Reportable 06/21/19 05:20 Plt Clumps, EDTA Not Reportable 06/21/19 05:20 Large Platelets Not Reportable 06/21/19 05:20 Giant Platelets Not Reportable 06/21/19 05:20 Platelet Satelliting Not Reportable 06/21/19 05:20 Plt Morphology Comment Not Reportable 06/21/19 05:20 RBC Morphology Not Reportable 06/21/19 05:20 Dimorphic RBCs Not Reportable 06/21/19 05:20 Polychromasia Not Reportable 06/21/19 05:20 Hypochromasia Not Reportable 06/21/19 05:20 Poikilocytosis Not Reportable 06/21/19 05:20 Anisocytosis 1+ 06/21/19 05:20 Microcytosis Rare 06/21/19 05:20 Macrocytosis Not Reportable 06/21/19 05:20 Spherocytes Not Reportable 06/21/19 05:20 Pappenheimer Bodies Not Reportable 06/21/19 05:20 Sickle Cells Not Reportable 06/21/19 05:20 Target Cells Not Reportable 06/21/19 05:20 Tear Drop Cells Rare 06/21/19 05:20 Ovalocytes Not Reportable 06/21/19 05:20 Stomatocytes Rare 06/21/19 05:20 Helmet Cells Not Reportable 06/21/19 05:20 [place] Bodies Not Reportable 06/21/19 05:20 Varney Rings Not Reportable 06/21/19 05:20 Dennis Cells Not Reportable 06/21/19 05:20 Bite Cells Not Reportable 06/21/19 05:20 Crenated Cell Not Reportable 06/21/19 05:20 Elliptocytes Rare 06/21/19 05:20 Acanthocytes (Spur) Not Reportable 06/21/19 05:20 Rouleaux Not Reportable 06/21/19 05:20 Hemoglobin C Crystals Not Reportable 06/21/19 05:20 Schistocytes Not Reportable 06/21/19 05:20 Malaria parasites Not Reportable 06/21/19 05:20 Syed Bodies Not Reportable 06/21/19 05:20 Hem Pathologist Commnt No 06/21/19 05:20 PT 15.4 Sec. (12.2-14.9) H 05/01/19 Unknown INR 1.23 (0.87-1.13) H 05/01/19 Unknown APTT 22.7 Sec. (24.2-36.6) L 05/01/19 Unknown Fibrinogen 194 mg/dl (211-480) L 06/17/19 12:45 POC ABG pH 7.462 (7.35-7.45) H 06/05/19 03:52 ABG pH 7.476 pH Units (7.350-7.450) H 06/21/19 03:40 POC ABG pCO2 39.8 (35-45) 06/05/19 03:52 ABG pCO2 37.1 mm Hg 06/21/19 03:40 POC ABG pO2 86 (80-105) 06/05/19 03:52 ABG pO2 162.0 mm Hg (80.0-90.0) H 06/21/19 03:40 POC ABG HCO3 28.4 (22-26 mml/L) 06/05/19 03:52 ABG HCO3 26.8 mmol/L (20.0-26.0) H 06/21/19 03:40 POC ABG Total CO2 30 (23-27mmol/L) 06/05/19 03:52 POC ABG O2 Sat 97 06/05/19 03:52 ABG O2 Saturation 99.1 % (95.0-99.0) H 06/21/19 03:40 ABG O2 Content 12.0 (0.0-44) 06/21/19 03:40 POC ABG Base Excess 5 ((-2) - (+3)mmol/L) 06/05/19 03:52 ABG Base Excess 3.1 mmol/L (-2.0-3.0) H 06/21/19 03:40 ABG Hemoglobin 8.6 gm/dl (14.0-18.0) L 06/21/19 03:40 ABG Carboxyhemoglobin 1.9 % (0.0-5.0) 06/21/19 03:40 ABG Methemoglobin 0.5 % (0.0-1.5) 06/21/19 03:40 Oxyhemoglobin 96.7 % (95.0-99.0) 06/21/19 03:40 FiO2 25 % 06/21/19 03:40 Sodium 141 mmol/L (137-145) 06/21/19 05:20 Potassium 3.9 mmol/L (3.6-5.0) 06/21/19 05:20 Chloride 97.7 mmol/L (98-107) L 06/21/19 05:20 Carbon Dioxide 28 mmol/L (22-30) 06/21/19 05:20 Anion Gap 19 mmol/L 06/21/19 05:20 BUN 69 mg/dL (9-20) H 06/21/19 05:20 Creatinine 1.3 mg/dL (0.8-1.5) 06/21/19 05:20 Estimated GFR > 60 ml/min 06/21/19 05:20 BUN/Creatinine Ratio 53 % 06/21/19 05:20 Glucose 239 mg/dL (75-100) H 06/21/19 05:20 POC Glucose 176 (70-105) H 06/21/19 12:30 Osmolality 327 Mosm/kg 05/07/19 13:45 Uric Acid 18.0 mg/dL (3.5-7.6) H 05/07/19 13:45 Calcium 9.1 mg/dL (8.4-10.2) 06/21/19 05:20 Phosphorus 3.70 mg/dL (2.5-4.5) 06/10/19 05:45 Magnesium 2.40 mg/dL (1.7-2.3) H 06/21/19 05:20 Iron 45 ug/dL (49-181) L 06/20/19 09:12 TIBC 110 mcg/dL (250-450) L 06/20/19 09:12 Ferritin 315.2 ng/mL (13.0-400.0) 06/20/19 09:12 Total Bilirubin 0.50 mg/dL (0.1-1.2) 06/08/19 04:20 AST 23 units/L (5-40) 06/08/19 04:20 ALT 66 units/L (7-56) H 06/08/19 04:20 Alkaline Phosphatase 59 units/L (35-129) 06/08/19 04:20 Total Creatine Kinase 131 units/L (55-170) 05/02/19 04:41 CK-MB (CK-2) 5.2 ng/mL (0.0-4.0) H 05/02/19 04:41 CK-MB (CK-2) Rel Index 3.9 (0-4) 05/02/19 04:41 Troponin T 0.067 ng/mL (0.00-0.029) H D 05/02/19 04:41 NT-Pro-B Natriuret Pep 6831 pg/mL (0-450) H 05/01/19 Unknown Total Protein 5.5 g/dL (6.3-8.2) L 06/08/19 04:20 Albumin 2.9 g/dL (3.9-5) L 06/08/19 04:20 Albumin/Globulin Ratio 1.1 % 06/08/19 04:20 Triglycerides 210 mg/dL (2-149) H 06/19/19 04:30 Cholesterol 173 mg/dL (50-199) 05/02/19 00:06 LDL Cholesterol Direct 126 mg/dL (50-130) 05/02/19 00:06 HDL Cholesterol 18 mg/dL (40-59) L 05/02/19 00:06 Cholesterol/HDL Ratio 9.61 % 05/02/19 00:06 Vitamin B12 353.0 pg/mL (211-911) 06/20/19 09:12 Folate 7.01 ng/mL (7.3-26.0) L 06/20/19 09:12 Procalcitonin 0.05 ng/mL (<0.15) 06/17/19 12:45 Urine Color Yellow (Yellow) 06/17/19 12:45 Urine Turbidity Slightly-cloudy (Clear) 06/17/19 12:45 Urine pH 5.0 (5.0-7.0) 06/17/19 12:45 Ur Specific [place] 1.013 (1.003-1.030) 06/17/19 12:45 Urine Protein <15 mg/dl mg/dL (Negative) 06/17/19 12:45 Urine Glucose (UA) Neg mg/dL (Negative) 06/17/19 12:45 Urine Ketones Neg mg/dL (Negative) 06/17/19 12:45 Urine Blood Sm (Negative) 06/17/19 12:45 Urine Nitrite Neg (Negative) 06/17/19 12:45 Urine Bilirubin Neg (Negative) 06/17/19 12:45 Urine Urobilinogen < 2.0 mg/dL (<2.0) 06/17/19 12:45 Ur Leukocyte Esterase Neg (Negative) 06/17/19 12:45 Urine WBC (Auto) 2.0 /HPF (0.0-6.0) 06/17/19 12:45 Urine RBC (Auto) 2.0 /HPF (0.0-6.0) 06/17/19 12:45 U Epithel Cells (Auto) < 1.0 /HPF (0-13.0) 06/17/19 12:45 Urine Bacteria (Auto) 1+ /HPF (Negative) 05/20/19 12:00 Uric Acid Crystals 3+ 05/03/19 10:55 Urine Mucus Few /HPF 06/17/19 12:45 Urine Yeast (Budding) 3+ /HPF 05/20/19 12:00 Urine Creatinine 292.8 mg/dL (0.1-20.0) H 05/07/19 22:40 Urine Sodium 11 mmol/L 05/07/19 22:40 Urine Total Protein 269 mg/dL (5-11.8) H 05/07/19 22:40 Vancomycin Trough 20.5 ug/mL (5.0-20.0) H 05/15/19 09:00 Random Vancomycin 11.5 ug/mL (0-40.0) 05/27/19 06:00 AMNA Screen Negative (Negative) 05/07/19 13:45 Hepatitis A IgM Ab Non-reactive (NonReactive) 05/07/19 13:45 Hep Bs Antigen Non-reactive (Negative) 05/07/19 13:45 Hep B Core IgM Ab Non-reactive (NonReactive) 05/07/19 13:45 Hepatitis C Antibody Non-reactive (NonReactive) 05/07/19 13:45 Influenza A (Rapid) Negative (Negative) 06/17/19 11:35 Influenza B (Rapid) Negative (Negative) 06/17/19 11:35 Active Medications - Current Medications Current Medications: Generic Name Dose Route Start Last Admin Trade Name Freq PRN Reason Stop Dose Admin Acetaminophen 650 mg 06/17/19 10:00 06/17/19 21:20 Tylenol PO 650 mg Q6H PRN Administration FOR TEMP >/=100.4 Lipase/Protease/Amylase 1 each 05/14/19 15:[address] 10,500 Unit FEEDTUBE PRN PRN For Clogged Feeding Tube Dextrose 50 gm 05/01/19 20:24 D50w (25gm) Vial IV Q30MIN PRN Hypoglycemia Protocol Famotidine 20 mg 06/17/19 10:00 06/21/19 10:33 Pepcid PO 20 mg BID VICKEY Administration Ferrous Sulfate 308 mg 06/18/19 12:00 06/21/19 10:34 Ferrous Sulfate PO 308 mg QDAY VICKEY Administration Hydrophilic Ointment 1 applic 06/16/19 17:34 Vaseline Lip Therapy TP Q2HR PRN Dry Lips Propofol 1,000 mg in 100 mls @ 7.716 mls/hr 06/16/19 21:00 06/21/19 09:30 Diprivan 10 Mg/Ml IV 0 mcg/kg/min TITR VICKEY 0 mls/hr Titration Protocol 5 MCG/KG/MIN Fentanyl Citrate 2,000 mcg in 100 mls @ 12.86 mls/hr 06/17/19 14:00 Fentanyl Drip Premix IV TITR VICKEY Protocol 1 MCG/KG/HR Cefazolin Sodium 3 gm/ Sodium 100 mls @ 100 mls/30 min 06/21/19 14:00 Chloride IV PREOP NR Protocol Insulin Glargine 20 units 06/20/19 22:00 06/20/19 21:45 Lantus SUB-Q 20 units QHS VICKEY Administration Insulin Human Lispro 0 unit 06/01/19 14:00 06/21/19 13:12 Humalog SUB-Q 3 unit Q6HR VICKEY Administration Protocol Labetalol HCl 10 mg 06/11/19 22:48 06/19/19 10:23 Labetalol IV 10 mg Q4H PRN Administration BP >170/105; hold for HR <60 Methylprednisolone Sodium Succinate 20 mg 06/22/19 10:00 Solu-Medrol IV Q24HR VICKEY Multi-Ingred Cream/Lotion/Oil/Oint 1 applic 06/16/19 18:00 Artificial Tears Ophth Oint OU Q4HR PRN Dry Eye(s) Potassium Chloride 40 meq 06/19/19 10:00 06/21/19 10:33 Potassium Chloride FEEDTUBE 40 meq QDAY VICKEY Administration Simple Syrup 15 ml 05/14/19 15:01 Simple Syrup FEEDTUBE PRN PRN Hypoglycemia Simple Syrup 30 ml 05/14/19 15:01 Simple Syrup FEEDTUBE PRN PRN Hypoglycemia Sodium Bicarbonate 325 mg 05/14/19 15:01 Sodium Bicarbonate FEEDTUBE PRN PRN For Clogged Feeding Tube Nutrition/Malnutrition Assess - Dietary Evaluation Nutrition/Malnutrition Findings: Nutrition Notes Start: 05/04/19 12:54 Freq: Status: Active Protocol: Document 06/16/19 12:24 CW (Rec: 06/16/19 12:34 CW [id number]) Co-Sign 06/16/19 12:24 LP Nutrition Notes Initial or Follow up Reassessment Current Diagnosis Acute Kidney Injury,Sepsis, Respiratory Failure Other Pertinent Diagnosis HD Current Diet Nepro 1.8 at 50 ml/hr Labs/Tests BUN 49 BG 264 Cr 0.7 Pertinent Medications Humalog Solumedrol Height 6 ft 4 in Weight 257.2 kg [place] Body Weight (kg) 91.81 BMI 69.0 Weight change and time frame No wt change noted Weight Status Morbidly Obese Subjective/Other Information F/U for diet advancement. Pt. failed swallow test per [employer]. PO not recommended. TF restarted and is being tolerated Percent of energy/protein needs met: 100%/43% Burn Absent Trauma Absent GI Symptoms None Current % PO Negligible Minimum of two criteria No physical signs of malnutrition #1 Nutrition Diagnosis Inadequate oral intake Diagnosis Progress(for reassessment Continues documentation) Is patient on ventilator? No Is Patient Ambulatory and/or Out of Bed No REE-([facility]-confined to bed) 4342.284 Kcal/Kg value to use for calculation 8 Approximate Energy Requirements Using 2057 kcal/Kg Calculation Used for Recommendations Kcal/kg Additional Notes PRO needs: 73 - 91 g (0.8 - 1 g/kg IBW) Fluid needs: 1 ml/kcal Nutrition Intervention Change Diet Order: Continue TF Nutrition Support: Nepro 1.8 at 50 ml/hr Flush with 250ml q4h Kcal 2,160 Protein (gm) 97 Fluid (mL) 872 Goal #1 TF tolerance [ End ] Goal #2 Meet at least 75% kcal/PRO needs via TF Anticipated Discharge Needs: Unable to determine at this time Follow-Up By: 06/23/19 Additional Comments F/U TF tolerance
[2019-06-21] MEDS: INSULIN GLARGINE 100 UNITS/ML SUB-Q SCH (21:49)
--- NOTE | 2019-06-22 02:44 | XRay Report ---
CHEST 1 VIEW INDICATION / CLINICAL INFORMATION: follow up respiratory failure. COMPARISON: 06/21/2019, 0205 hours FINDINGS: SUPPORT DEVICES: Unchanged HEART / MEDIASTINUM: Unchanged LUNGS / PLEURA: There is mild increase in basilar atelectasis. No pneumothorax. ADDITIONAL FINDINGS: No significant additional findings. IMPRESSION: 1. There is mild increase in basilar atelectasis Signer Name: Bony Israel MD Signed: 06/22/2019 2:40 AM Workstation Name: Adly
[2019-06-22 04:19] LABS: ABG Base Excess 3.3 mmol/L (-2.0-3.0); ABG HCO3 27.7 mmol/L (20.0-26.0); ABG Methemoglobin 0.5 % (0.0-1.5); ABG Oxygen Saturation 97.2 % (95.0-99.0); ABG PCO2 41.4 mm Hg; ABG PH 7.444 pH Units (7.350-7.450); ABG PO2 88.1 mm Hg (80.0-90.0)
[2019-06-22 05:58] LABS: Hemoglobin 8.7 gm/dl (11.8-15.2); Mean Corpuscular HGB Conc 32 % (32-34); Mean Corpuscular Volume 87 fl (84-94); Platelet Count 151 K/mm3 (140-440); Red Cell Distribution Width 19.8 % (13.2-15.2)
[2019-06-22 06:19] LABS: BUN/Creatinine Ratio 66; Blood Urea Nitrogen 66 mg/dL (9-20); Calcium 9.1 mg/dL (8.4-10.2); Hemolysis Index 1
--- NOTE | 2019-06-22 08:10 | Hem/Onc Progress Note ---
Assessment and Plan 1. Thrombocytopenia. This may be medication related. The patient had received Lovenox, HIT test has been ordered. Doppler is negative. Other medication like antibiotics may also have a role in this pharmacy evaluation of trend of medications will help. 2. Anemia. deficiency investigations. 3. Short of breath, intubated. 4. History of hypertension. 5. Status post cardiac arrest. 6. Renal impairment, acute tubular necrosis at one time, dialysis on hold. 7. Electrolyte imbalance. 8. I will follow the patient during inpatient stay. 06/22 - d/w Pharmacy reg meds and Low plt d/w dr April andres folate - replace anemia - iron trial will follow the pt PRN as PLT improved - Patient Problems (1) Thrombocytopenia Current Visit: Yes Status: Acute Subjective Date of service: 06/22/19 Principal diagnosis: anemia - LOw PLT Interval history: on vent - awake Objective - Constitutional Vitals: Last Vital Signs Temp 99.3 F 06/22/19 03:23 Pulse 89 06/22/19 05:30 Resp 18 06/22/19 05:30 BP 156/92 06/22/19 05:30 Pulse Ox 96 06/22/19 05:15 - Labs Lab Results: Laboratory Results - last 24 hr 06/20/19 06/21/19 06/21/19 23:24 12:30 18:18 WBC RBC Hgb Hct MCV MCH MCHC RDW Plt Count ABG pH ABG pCO2 ABG pO2 ABG HCO3 ABG O2 Saturation ABG O2 Content ABG Base Excess ABG Hemoglobin ABG Carboxyhemoglobin ABG Methemoglobin Oxyhemoglobin FiO2 Sodium Potassium Chloride Carbon Dioxide Anion Gap BUN Creatinine Estimated GFR BUN/Creatinine Ratio Glucose POC Glucose 215 H 176 H 187 H Calcium Magnesium 06/21/19 06/21/19 06/22/19 21:59 23:50 04:11 WBC RBC Hgb Hct MCV MCH MCHC RDW Plt Count ABG pH 7.444 ABG pCO2 41.4 ABG pO2 88.1 ABG HCO3 27.7 H ABG O2 Saturation 97.2 ABG O2 Content 11.4 ABG Base Excess 3.3 H ABG Hemoglobin 8.5 L ABG Carboxyhemoglobin 1.9 ABG Methemoglobin 0.5 Oxyhemoglobin 94.9 L FiO2 25 Sodium Potassium Chloride Carbon Dioxide Anion Gap BUN Creatinine Estimated GFR BUN/Creatinine Ratio Glucose POC Glucose 104 105 Calcium Magnesium 06/22/19 06/22/19 06/22/19 05:30 05:30 05:31 WBC 12.6 H RBC 3.10 L Hgb 8.7 L Hct 27.0 L MCV 87 MCH 28 MCHC 32 RDW 19.8 H Plt Count 151 ABG pH ABG pCO2 ABG pO2 ABG HCO3 ABG O2 Saturation ABG O2 Content ABG Base Excess ABG Hemoglobin ABG Carboxyhemoglobin ABG Methemoglobin Oxyhemoglobin FiO2 Sodium 144 Potassium 3.6 Chloride 102.4 Carbon Dioxide 28 Anion Gap 17 BUN 66 H Creatinine 1.0 Estimated GFR > 60 BUN/Creatinine Ratio 66 Glucose 103 H POC Glucose 103 Calcium 9.1 Magnesium 2.10 Medications & Allergies - Medications Allergies/Adverse Reactions: Allergies No Known Allergies Allergy (Verified 05/01/19 20:27) Home Medications: Home Medications Medication Instructions Recorded Confirmed Last Taken Type No Known Home Medications [No 05/03/19 05/03/19 Unknown History Reported Home Medications] Active Medications: Generic Name Dose Route Start Last Admin Trade Name Christopher PRN Reason Stop Dose Admin Acetaminophen 650 mg 06/17/19 10:00 06/17/19 21:20 Tylenol PO 650 mg Q6H PRN Administration FOR TEMP >/=100.4 Lipase/Protease/Amylase 1 each 05/14/19 15:01 Pancreaze 10,500 Unit FEEDTUBE PRN PRN For Clogged Feeding Tube Dextrose 50 gm 05/01/19 20:24 D50w (25gm) Vial IV Q30MIN PRN Hypoglycemia Protocol Famotidine 20 mg 06/17/19 10:00 06/21/19 21:50 Pepcid PO 20 mg BID VICKEY Administration Ferrous Sulfate 308 mg 06/18/19 12:00 06/21/19 10:34 Ferrous Sulfate PO 308 mg QDAY VICKEY Administration Hydrophilic Ointment 1 applic 06/16/19 17:34 Vaseline Lip Therapy TP Q2HR PRN Dry Lips Propofol 1,000 mg in 100 mls @ 7.716 mls/hr 06/16/19 21:00 06/22/19 05:01 Diprivan 10 Mg/Ml IV 5 mcg/kg/min TITR VICKEY 7.716 mls/hr Administration Protocol 5 MCG/KG/MIN Fentanyl Citrate 2,000 mcg in 100 mls @ 12.86 mls/hr 06/17/19 14:00 Fentanyl Drip Premix IV TITR [facility] Protocol 1 MCG/KG/HR Insulin Glargine 20 units 06/20/19 22:00 06/21/19 21:49 Lantus SUB-Q Not Given QHS [facility] Insulin Human Lispro 0 unit 06/01/19 14:00 06/21/19 23:50 Humalog SUB-Q Not Given Q6HR [facility] Protocol Labetalol HCl 10 mg 06/11/19 22:48 06/19/19 10:23 Labetalol IV 10 mg Q4H PRN Administration BP >170/105; hold for HR <60 Methylprednisolone Sodium Succinate 20 mg 06/22/19 10:00 Solu-Medrol IV Q24HR [facility] Multi-Ingred Cream/Lotion/Oil/Oint 1 applic 06/16/19 18:00 Artificial Tears Ophth Oint OU Q4HR PRN Dry Eye(s) Potassium Chloride 40 meq 06/19/19 10:00 06/21/19 10:33 Potassium Chloride FEEDTUBE 40 meq QDAY VICKEY Administration Simple Syrup 15 ml 05/14/19 15:01 Simple Syrup FEEDTUBE PRN PRN Hypoglycemia Simple Syrup 30 ml 05/14/19 15:01 Simple Syrup FEEDTUBE PRN PRN Hypoglycemia Sodium Bicarbonate 325 mg 05/14/19 15:01 Sodium Bicarbonate FEEDTUBE PRN PRN For Clogged Feeding Tube
[2019-06-22 08:43] LABS: Band Neutrophils # (Manual) 0.1 K/mm3; Total Cells Counted 100
--- NOTE | 2019-06-22 08:43 | Progress Note ---
Assessment and Plan 34 y/o male with acute hypoxic, hypercapnic respiratory failure currently ventilated and sedated, now with persistent fevers and seizure and on HD 06/22/2019: Patient scheduled for OR today. Plan as outlined in Dr. Saez's note from yesterday. Discussed with patient again this am. Really appreciate surgery help with this and the promptness of procedure. Will follow up post-op later today. 06/21/2019: Unfortunately re-intubated last week. Will need Trach and Peg, but I doubt peg will happen secondary to his size. Will discuss with surgery and maybe they can just put in a number 6 XLT from the start. I think he will get off the vent relatively quickly and can start to eat. This trach will be indefinite. I have explained this to him. I have not seen his family at the bedside during this admission but Im told they come in the evenings. 06/12/2019: Started HCTZ 50 daily and Labetalol 100 TID. Will increase Labetalol to 200 TID. Already on Clonidine patch. Continue Minoxidil. Will start to wean drip. PT/OT. Feeds through NG now that this is in place. Will need speech re-evaluation. Will order NT suctioning at least [id number] for the next 24 hours. 06/11/2019: Bipap at night and PRN. Na levels are increasing. Agree with D5W. Unable to place DH, several nurses tried. Will ask speech to come by and reassess now that patient is more willing to cooperate. . Continue PT/OT, sat up on side of bed yesterday. Continue IMCU monitoring for now. As stated below, patient was intubated for 37 days. CCT 31 minutes. Subjective Date of service: 06/22/19 Principal diagnosis: LOW PLT Interval history: No acute events. Appreciate surgery eval. Plan for OR today. Discussed plan with Dr. Saez on yesterday. Objective Vital Signs - 12hr 06/21/19 06/21/19 06/21/19 20:45 21:00 21:15 Temperature Pulse Rate 96 H 94 H 94 H Pulse Rate [ From Monitor] Respiratory 18 18 21 Rate Blood Pressure 134/70 129/58 129/53 O2 Sat by Pulse 100 100 100 Oximetry 06/21/19 06/21/19 06/21/19 21:30 21:45 22:00 Temperature Pulse Rate 94 H 89 95 H Pulse Rate [ From Monitor] Respiratory 20 22 21 Rate Blood Pressure 131/53 124/50 134/66 O2 Sat by Pulse 99 98 Oximetry 06/21/19 06/21/19 06/21/19 22:15 22:30 22:45 Temperature Pulse Rate 91 H 90 92 H Pulse Rate [ From Monitor] Respiratory 19 16 19 Rate Blood Pressure 124/64 106/39 117/65 O2 Sat by Pulse 100 96 99 Oximetry 06/21/19 06/21/19 06/21/19 23:00 23:02 23:15 Temperature Pulse Rate 85 83 87 Pulse Rate [ From Monitor] Respiratory 15 19 20 Rate Blood Pressure 103/45 103/45 102/41 O2 Sat by Pulse 97 98 98 Oximetry 06/21/19 06/21/19 06/21/19 23:16 23:30 23:35 Temperature 100 F H Pulse Rate 91 H 94 H Pulse Rate [ 86 From Monitor] Respiratory 19 24 Rate Blood Pressure 99/38 O2 Sat by Pulse 97 98 Oximetry 06/21/19 06/22/19 06/22/19 23:45 00:00 00:15 Temperature Pulse Rate 100 H 96 H 92 H Pulse Rate [ From Monitor] Respiratory 22 22 22 Rate Blood Pressure 130/67 120/49 99/52 O2 Sat by Pulse 97 98 98 Oximetry 06/22/19 06/22/19 06/22/19 00:30 00:45 01:00 Temperature Pulse Rate 91 H 92 H 93 H Pulse Rate [ From Monitor] Respiratory 18 18 21 Rate Blood Pressure 110/47 102/43 125/73 O2 Sat by Pulse 96 96 98 Oximetry 06/22/19 06/22/19 06/22/19 01:15 01:30 01:35 Temperature Pulse Rate 91 H 94 H 94 H Pulse Rate [ 86 From Monitor] Respiratory 17 19 24 Rate Blood Pressure 126/69 116/64 O2 Sat by Pulse 97 97 98 Oximetry 06/22/19 06/22/19 06/22/19 01:45 02:00 02:15 Temperature Pulse Rate 86 88 97 H Pulse Rate [ From Monitor] Respiratory 17 20 26 H Rate Blood Pressure 104/49 100/45 130/71 O2 Sat by Pulse 98 99 97 Oximetry 06/22/19 06/22/19 06/22/19 02:30 02:45 03:00 Temperature Pulse Rate 93 H 95 H 95 H Pulse Rate [ From Monitor] Respiratory 16 20 19 Rate Blood Pressure 139/78 143/78 142/76 O2 Sat by Pulse 100 97 98 Oximetry 06/22/19 06/22/19 06/22/19 03:15 03:23 03:30 Temperature 99.3 F Pulse Rate 94 H 88 Pulse Rate [ From Monitor] Respiratory 23 16 Rate Blood Pressure 136/81 133/68 O2 Sat by Pulse 98 99 Oximetry 06/22/19 06/22/19 06/22/19 03:45 04:00 04:15 Temperature Pulse Rate 89 91 H 98 H Pulse Rate [ From Monitor] Respiratory 18 18 14 Rate Blood Pressure 126/64 117/53 136/81 O2 Sat by Pulse 98 Oximetry 06/22/19 06/22/19 06/22/19 04:30 04:46 05:00 Temperature Pulse Rate 96 H 93 H 92 H Pulse Rate [ 94 H From Monitor] Respiratory 17 21 20 Rate Blood Pressure 143/82 136/81 145/80 O2 Sat by Pulse 98 98 97 Oximetry 06/22/19 06/22/19 05:15 05:30 Temperature Pulse Rate 94 H 89 Pulse Rate [ From Monitor] Respiratory 20 18 Rate Blood Pressure 153/84 156/92 O2 Sat by Pulse 96 Oximetry Constitutional: other (morbidly obese male, critically ill on vent) Eyes: non-icteric ENT: oropharynx moist Neck: other (extremely large in circumference) Effort: normal Ascultation: Bilateral: diminished breath sounds (secondary to body habitus), rhonchi Cardiovascular: regular rate and rhythm (no mrg) Gastrointestinal: normoactive bowel sounds, soft, non-tender, other (obese) Integumentary: other (L hand is wrapped) Extremities: no cyanosis, pink and warm, other (1+ generalized edema) Neurologic: normal mental status, non-focal exam Psychiatric: mood appropriate, affect normal CBC and BMP: 06/22/19 05:30 06/22/19 05:30 ABG, PT/INR, D-dimer: ABG POC ABG pH 7.462 (7.35-7.45) H 06/05/19 03:52 ABG pH 7.444 pH Units (7.350-7.450) 06/22/19 04:11 POC ABG pCO2 39.8 (35-45) 06/05/19 03:52 ABG pCO2 41.4 mm Hg 06/22/19 04:11 POC ABG pO2 86 (80-105) 06/05/19 03:52 ABG pO2 88.1 mm Hg (80.0-90.0) 06/22/19 04:11 POC ABG HCO3 28.4 (22-26 mml/L) 06/05/19 03:52 POC ABG Total CO2 30 (23-27mmol/L) 06/05/19 03:52 POC ABG O2 Sat 97 06/05/19 03:52 ABG O2 Saturation 97.2 % (95.0-99.0) 06/22/19 04:11 PT/INR, D-dimer PT 15.4 Sec. (12.2-14.9) H 05/01/19 Unknown INR 1.23 (0.87-1.13) H 05/01/19 Unknown Abnormal lab findings: Abnormal Labs 05/01/19 05/01/19 05/01/19 17:50 19:26 22:36 WBC RBC Hgb Hct MCV MCH MCHC RDW Plt Count Lymph % (Auto) [place] % (Auto) Eos % (Auto) Lymph # [place] # Eos # Seg Neutrophils % Seg Neuts % (Manual) Lymphocytes % (Manual) Monocytes % (Manual) Eosinophils % (Manual) Nucleated RBC % Seg Neutrophils # Seg Neutrophils # Man Lymphocytes # (Manual) Monocytes # (Manual) Eosinophils # (Manual) PT INR APTT Fibrinogen POC ABG pH 7.272 L 7.331 L ABG pH POC ABG pCO2 52.8 H POC ABG pO2 ABG pO2 ABG HCO3 ABG O2 Saturation ABG Base Excess ABG Hemoglobin Oxyhemoglobin Sodium 136 L Potassium 6.5 H* Chloride 97.2 L Carbon Dioxide BUN 60 H Creatinine Glucose 113 H POC Glucose Uric Acid Calcium Phosphorus Magnesium 2.40 H Iron TIBC AST 139 H ALT 154 H Total Creatine Kinase CK-MB (CK-2) Troponin T NT-Pro-B Natriuret Pep Total Protein Albumin 3.8 L Triglycerides HDL Cholesterol Folate Urine WBC (Auto) Urine Creatinine Urine Total Protein Vancomycin Trough 05/01/19 05/01/19 05/01/19 Unknown Unknown Unknown WBC 16.1 H RBC Hgb Hct MCV MCH MCHC RDW 17.2 H Plt Count Lymph % (Auto) [place] % (Auto) 9.6 H Eos % (Auto) Lymph # [place] # 1.5 H Eos # Seg Neutrophils % 73.0 H Seg Neuts % (Manual) Lymphocytes % (Manual) Monocytes % (Manual) Eosinophils % (Manual) Nucleated RBC % Seg Neutrophils # 11.7 H Seg Neutrophils # Man Lymphocytes # (Manual) Monocytes # (Manual) Eosinophils # (Manual) PT 15.4 H INR 1.23 H APTT 22.7 L Fibrinogen POC ABG pH ABG pH POC ABG pCO2 POC ABG pO2 ABG pO2 ABG HCO3 ABG O2 Saturation ABG Base Excess ABG Hemoglobin Oxyhemoglobin Sodium Potassium Chloride Carbon Dioxide BUN Creatinine Glucose POC Glucose Uric Acid Calcium Phosphorus Magnesium Iron TIBC AST ALT Total Creatine Kinase CK-MB (CK-2) Troponin T NT-Pro-B Natriuret Pep 6831 H Total Protein Albumin Triglycerides HDL Cholesterol Folate Urine WBC (Auto) Urine Creatinine Urine Total Protein Vancomycin Trough 05/01/19 05/02/19 05/02/19 Unknown 00:06 00:06 WBC RBC Hgb Hct MCV MCH MCHC RDW Plt Count Lymph % (Auto) [place] % (Auto) Eos % (Auto) Lymph # [place] # Eos # Seg Neutrophils % Seg Neuts % (Manual) Lymphocytes % (Manual) Monocytes % (Manual) Eosinophils % (Manual) Nucleated RBC % Seg Neutrophils # Seg Neutrophils # Man Lymphocytes # (Manual) Monocytes # (Manual) Eosinophils # (Manual) PT INR APTT Fibrinogen POC ABG pH ABG pH POC ABG pCO2 POC ABG pO2 ABG pO2 ABG HCO3 ABG O2 Saturation ABG Base Excess ABG Hemoglobin Oxyhemoglobin Sodium Potassium Chloride Carbon Dioxide BUN Creatinine Glucose POC Glucose Uric Acid Calcium Phosphorus 4.90 H Magnesium Iron TIBC AST ALT Total Creatine Kinase 226 H CK-MB (CK-2) 5.7 H Troponin T 0.044 H NT-Pro-B Natriuret Pep Total Protein Albumin Triglycerides 182 H HDL Cholesterol 18 L Folate Urine WBC (Auto) Urine Creatinine Urine Total Protein Vancomycin Trough 05/02/19 05/02/19 05/02/19 02:08 04:40 04:41 WBC 17.6 H RBC Hgb Hct MCV MCH 27 L MCHC RDW 17.4 H Plt Count Lymph % (Auto) 10.2 L [place] % (Auto) 11.0 H Eos % (Auto) Lymph # [place] # 1.9 H Eos # Seg Neutrophils % 78.0 H Seg Neuts % (Manual) Lymphocytes % (Manual) Monocytes % (Manual) Eosinophils % (Manual) Nucleated RBC % Seg Neutrophils # 13.8 H Seg Neutrophils # Man Lymphocytes # (Manual) Monocytes # (Manual) Eosinophils # (Manual) PT INR APTT Fibrinogen POC ABG pH ABG pH POC ABG pCO2 46.8 H POC ABG pO2 63 L ABG pO2 ABG HCO3 ABG O2 Saturation ABG Base Excess ABG Hemoglobin Oxyhemoglobin Sodium Potassium Chloride 96.3 L Carbon Dioxide BUN 63 H Creatinine 1.7 H Glucose POC Glucose Uric Acid Calcium Phosphorus Magnesium Iron TIBC AST ALT Total Creatine Kinase CK-MB (CK-2) Troponin T NT-Pro-B Natriuret Pep Total Protein Albumin Triglycerides HDL Cholesterol Folate Urine WBC (Auto) Urine Creatinine Urine Total Protein Vancomycin Trough 05/02/19 05/02/19 05/02/19 04:41 04:41 16:05 WBC RBC Hgb Hct MCV MCH MCHC RDW Plt Count Lymph % (Auto) [place] % (Auto) Eos % (Auto) Lymph # [place] # Eos # Seg Neutrophils % Seg Neuts % (Manual) Lymphocytes % (Manual) Monocytes % (Manual) Eosinophils % (Manual) Nucleated RBC % Seg Neutrophils # Seg Neutrophils # Man Lymphocytes # (Manual) Monocytes # (Manual) Eosinophils # (Manual) PT INR APTT Fibrinogen POC ABG pH ABG pH POC ABG pCO2 POC ABG pO2 ABG pO2 66.6 L ABG HCO3 31.9 H ABG O2 Saturation 92.5 L ABG Base Excess 5.8 H ABG Hemoglobin 13.3 L Oxyhemoglobin 90.6 L Sodium Potassium Chloride 97.2 L Carbon Dioxide BUN 61 H Creatinine 1.8 H Glucose POC Glucose Uric Acid Calcium Phosphorus Magnesium Iron TIBC AST ALT Total Creatine Kinase CK-MB (CK-2) 5.2 H Troponin T 0.067 H D NT-Pro-B Natriuret Pep Total Protein Albumin Triglycerides HDL Cholesterol Folate Urine WBC (Auto) Urine Creatinine Urine Total Protein Vancomycin Trough 05/02/19 05/03/19 05/03/19 20:39 04:35 05:05 WBC 11.8 H RBC Hgb Hct MCV MCH 27 L MCHC 31 L RDW 17.2 H Plt Count Lymph % (Auto) [place] % (Auto) Eos % (Auto) Lymph # [place] # Eos # Seg Neutrophils % Seg Neuts % (Manual) Lymphocytes % (Manual) Monocytes % (Manual) Eosinophils % (Manual) Nucleated RBC % Seg Neutrophils # Seg Neutrophils # Man Lymphocytes # (Manual) Monocytes # (Manual) Eosinophils # (Manual) PT INR APTT Fibrinogen POC ABG pH ABG pH POC ABG pCO2 53.6 H 54.0 H POC ABG pO2 55 L 63 L ABG pO2 ABG HCO3 ABG O2 Saturation ABG Base Excess ABG Hemoglobin Oxyhemoglobin Sodium Potassium Chloride Carbon Dioxide BUN Creatinine Glucose POC Glucose Uric Acid Calcium Phosphorus Magnesium Iron TIBC AST ALT Total Creatine Kinase CK-MB (CK-2) Troponin T NT-Pro-B Natriuret Pep Total Protein Albumin Triglycerides HDL Cholesterol Folate Urine WBC (Auto) Urine Creatinine Urine Total Protein Vancomycin Trough 05/03/19 05/03/19 05/03/19 05:05 10:55 16:48 WBC RBC Hgb Hct MCV MCH MCHC RDW Plt Count Lymph % (Auto) [place] % (Auto) Eos % (Auto) Lymph # [place] # Eos # Seg Neutrophils % Seg Neuts % (Manual) Lymphocytes % (Manual) Monocytes % (Manual) Eosinophils % (Manual) Nucleated RBC % Seg Neutrophils # Seg Neutrophils # Man Lymphocytes # (Manual) Monocytes # (Manual) Eosinophils # (Manual) PT INR APTT Fibrinogen POC ABG pH 7.604 H ABG pH POC ABG pCO2 POC ABG pO2 58 L ABG pO2 ABG HCO3 ABG O2 Saturation ABG Base Excess ABG Hemoglobin Oxyhemoglobin Sodium Potassium Chloride Carbon Dioxide BUN 52 H Creatinine 1.9 H Glucose 103 H POC Glucose Uric Acid Calcium Phosphorus Magnesium Iron TIBC AST ALT Total Creatine Kinase CK-MB (CK-2) Troponin T NT-Pro-B Natriuret Pep Total Protein Albumin Triglycerides HDL Cholesterol Folate Urine WBC (Auto) 33.0 H Urine Creatinine Urine Total Protein Vancomycin Trough 05/04/19 05/04/19 05/04/19 04:49 06:50 06:50 WBC 16.0 H RBC Hgb Hct MCV MCH 27 L MCHC 31 L RDW 17.8 H Plt Count Lymph % (Auto) [place] % (Auto) Eos % (Auto) Lymph # [place] # Eos # Seg Neutrophils % Seg Neuts % (Manual) Lymphocytes % (Manual) Monocytes % (Manual) Eosinophils % (Manual) Nucleated RBC % Seg Neutrophils # Seg Neutrophils # Man Lymphocytes # (Manual) Monocytes # (Manual) Eosinophils # (Manual) PT INR APTT Fibrinogen POC ABG pH 7.273 L ABG pH POC ABG pCO2 POC ABG pO2 ABG pO2 ABG HCO3 ABG O2 Saturation ABG Base Excess ABG Hemoglobin Oxyhemoglobin Sodium 148 H Potassium 5.5 H Chloride Carbon Dioxide BUN 53 H Creatinine 3.3 H D Glucose 106 H POC Glucose Uric Acid Calcium 8.3 L Phosphorus Magnesium Iron TIBC AST ALT Total Creatine Kinase CK-MB (CK-2) Troponin T NT-Pro-B Natriuret Pep Total Protein Albumin Triglycerides HDL Cholesterol Folate Urine WBC (Auto) Urine Creatinine Urine Total Protein Vancomycin Trough 05/05/19 05/05/19 05/05/19 00:05 04:30 05:00 WBC RBC Hgb Hct MCV MCH MCHC RDW Plt Count Lymph % (Auto) [place] % (Auto) Eos % (Auto) Lymph # [place] # Eos # Seg Neutrophils % Seg Neuts % (Manual) Lymphocytes % (Manual) Monocytes % (Manual) Eosinophils % (Manual) Nucleated RBC % Seg Neutrophils # Seg Neutrophils # Man Lymphocytes # (Manual) Monocytes # (Manual) Eosinophils # (Manual) PT INR APTT Fibrinogen POC ABG pH 7.225 L ABG pH POC ABG pCO2 > 70 H POC ABG pO2 ABG pO2 ABG HCO3 ABG O2 Saturation ABG Base Excess ABG Hemoglobin Oxyhemoglobin Sodium 151 H Potassium 5.1 H Chloride Carbon Dioxide BUN 64 H Creatinine 3.5 H Glucose 117 H POC Glucose 141 H Uric Acid Calcium 7.5 L Phosphorus Magnesium Iron TIBC AST 93 H ALT 65 H Total Creatine Kinase CK-MB (CK-2) Troponin T NT-Pro-B Natriuret Pep Total Protein Albumin 2.9 L Triglycerides HDL Cholesterol Folate Urine WBC (Auto) Urine Creatinine Urine Total Protein Vancomycin Trough 05/05/19 05/05/19 05/05/19 05:00 12:02 17:46 WBC 12.0 H RBC Hgb 11.3 L Hct MCV MCH 27 L MCHC 30 L RDW 18.4 H Plt Count Lymph % (Auto) 7.9 L [place] % (Auto) 10.2 H Eos % (Auto) Lymph # 1.0 L [place] # 1.2 H Eos # Seg Neutrophils % 80.8 H Seg Neuts % (Manual) Lymphocytes % (Manual) Monocytes % (Manual) Eosinophils % (Manual) Nucleated RBC % Seg Neutrophils # 9.7 H Seg Neutrophils # Man Lymphocytes # (Manual) Monocytes # (Manual) Eosinophils # (Manual) PT INR APTT Fibrinogen POC ABG pH ABG pH POC ABG pCO2 POC ABG pO2 ABG pO2 ABG HCO3 ABG O2 Saturation ABG Base Excess ABG Hemoglobin Oxyhemoglobin Sodium Potassium Chloride Carbon Dioxide BUN Creatinine Glucose POC Glucose 125 H 112 H Uric Acid Calcium Phosphorus Magnesium Iron TIBC AST ALT Total Creatine Kinase CK-MB (CK-2) Troponin T NT-Pro-B Natriuret Pep Total Protein Albumin Triglycerides HDL Cholesterol Folate Urine WBC (Auto) Urine Creatinine Urine Total Protein Vancomycin Trough 05/05/19 05/06/19 05/06/19 23:42 03:58 04:45 WBC 11.4 H RBC Hgb 10.7 L Hct 34.2 L MCV MCH 27 L MCHC 31 L RDW 16.9 H Plt Count Lymph % (Auto) [place] % (Auto) Eos % (Auto) Lymph # [place] # Eos # Seg Neutrophils % Seg Neuts % (Manual) Lymphocytes % (Manual) Monocytes % (Manual) Eosinophils % (Manual) Nucleated RBC % Seg Neutrophils # Seg Neutrophils # Man Lymphocytes # (Manual) Monocytes # (Manual) Eosinophils # (Manual) PT INR APTT Fibrinogen POC ABG pH ABG pH POC ABG pCO2 62.4 H POC ABG pO2 111 H ABG pO2 ABG HCO3 ABG O2 Saturation ABG Base Excess ABG Hemoglobin Oxyhemoglobin Sodium Potassium Chloride Carbon Dioxide BUN Creatinine Glucose POC Glucose 128 H Uric Acid Calcium Phosphorus Magnesium Iron TIBC AST ALT Total Creatine Kinase CK-MB (CK-2) Troponin T NT-Pro-B Natriuret Pep Total Protein Albumin Triglycerides HDL Cholesterol Folate Urine WBC (Auto) Urine Creatinine Urine Total Protein Vancomycin Trough 05/06/19 05/06/19 05/06/19 04:45 05:33 12:30 WBC RBC Hgb Hct MCV MCH MCHC RDW Plt Count Lymph % (Auto) [place] % (Auto) Eos % (Auto) Lymph # [place] # Eos # Seg Neutrophils % Seg Neuts % (Manual) Lymphocytes % (Manual) Monocytes % (Manual) Eosinophils % (Manual) Nucleated RBC % Seg Neutrophils # Seg Neutrophils # Man Lymphocytes # (Manual) Monocytes # (Manual) Eosinophils # (Manual) PT INR APTT Fibrinogen POC ABG pH ABG pH POC ABG pCO2 POC ABG pO2 ABG pO2 ABG HCO3 ABG O2 Saturation ABG Base Excess ABG Hemoglobin Oxyhemoglobin Sodium 149 H Potassium Chloride Carbon Dioxide 31 H BUN 67 H Creatinine 3.2 H Glucose 125 H POC Glucose 117 H 116 H Uric Acid Calcium 7.5 L Phosphorus Magnesium Iron TIBC AST ALT Total Creatine Kinase CK-MB (CK-2) Troponin T NT-Pro-B Natriuret Pep Total Protein Albumin Triglycerides HDL Cholesterol Folate Urine WBC (Auto) Urine Creatinine Urine Total Protein Vancomycin Trough 05/06/19 05/06/19 05/07/19 18:34 23:16 05:22 WBC RBC Hgb Hct MCV MCH MCHC RDW Plt Count Lymph % (Auto) [place] % (Auto) Eos % (Auto) Lymph # [place] # Eos # Seg Neutrophils % Seg Neuts % (Manual) Lymphocytes % (Manual) Monocytes % (Manual) Eosinophils % (Manual) Nucleated RBC % Seg Neutrophils # Seg Neutrophils # Man Lymphocytes # (Manual) Monocytes # (Manual) Eosinophils # (Manual) PT INR APTT Fibrinogen POC ABG pH ABG pH POC ABG pCO2 POC ABG pO2 ABG pO2 ABG HCO3 ABG O2 Saturation ABG Base Excess ABG Hemoglobin Oxyhemoglobin Sodium Potassium Chloride Carbon Dioxide BUN Creatinine Glucose POC Glucose 128 H 143 H 166 H Uric Acid Calcium Phosphorus Magnesium Iron TIBC AST ALT Total Creatine Kinase CK-MB (CK-2) Troponin T NT-Pro-B Natriuret Pep Total Protein Albumin Triglycerides HDL Cholesterol Folate Urine WBC (Auto) Urine Creatinine Urine Total Protein Vancomycin Trough 05/07/19 05/07/19 05/07/19 06:33 07:03 09:35 WBC RBC Hgb Hct MCV MCH MCHC RDW Plt Count Lymph % (Auto) [place] % (Auto) Eos % (Auto) Lymph # [place] # Eos # Seg Neutrophils % Seg Neuts % (Manual) Lymphocytes % (Manual) Monocytes % (Manual) Eosinophils % (Manual) Nucleated RBC % Seg Neutrophils # Seg Neutrophils # Man Lymphocytes # (Manual) Monocytes # (Manual) Eosinophils # (Manual) PT INR APTT Fibrinogen POC ABG pH 7.263 L 7.288 L ABG pH POC ABG pCO2 POC ABG pO2 51 L 56 L ABG pO2 ABG HCO3 ABG O2 Saturation ABG Base Excess ABG Hemoglobin Oxyhemoglobin Sodium Potassium Chloride Carbon Dioxide BUN 76 H Creatinine 3.2 H Glucose 147 H POC Glucose Uric Acid Calcium 7.9 L Phosphorus Magnesium Iron TIBC AST ALT Total Creatine Kinase CK-MB (CK-2) Troponin T NT-Pro-B Natriuret Pep Total Protein Albumin Triglycerides HDL Cholesterol Folate Urine WBC (Auto) Urine Creatinine Urine Total Protein Vancomycin Trough 05/07/19 05/07/19 05/07/19 09:35 12:17 13:45 WBC 13.4 H RBC Hgb 11.6 L Hct MCV MCH 27 L MCHC 31 L RDW 17.5 H Plt Count Lymph % (Auto) [place] % (Auto) Eos % (Auto) Lymph # [place] # Eos # Seg Neutrophils % Seg Neuts % (Manual) Lymphocytes % (Manual) Monocytes % (Manual) Eosinophils % (Manual) Nucleated RBC % Seg Neutrophils # Seg Neutrophils # Man Lymphocytes # (Manual) Monocytes # (Manual) Eosinophils # (Manual) PT INR APTT Fibrinogen POC ABG pH ABG pH POC ABG pCO2 POC ABG pO2 ABG pO2 ABG HCO3 ABG O2 Saturation ABG Base Excess ABG Hemoglobin Oxyhemoglobin Sodium Potassium Chloride Carbon Dioxide BUN Creatinine Glucose POC Glucose 130 H Uric Acid 18.0 H Calcium Phosphorus Magnesium Iron TIBC AST ALT Total Creatine Kinase CK-MB (CK-2) Troponin T NT-Pro-B Natriuret Pep Total Protein Albumin Triglycerides HDL Cholesterol Folate Urine WBC (Auto) Urine Creatinine Urine Total Protein Vancomycin Trough 05/07/19 05/07/19 05/08/19 17:39 22:40 05:06 WBC RBC Hgb Hct MCV MCH MCHC RDW Plt Count Lymph % (Auto) [place] % (Auto) Eos % (Auto) Lymph # [place] # Eos # Seg Neutrophils % Seg Neuts % (Manual) Lymphocytes % (Manual) Monocytes % (Manual) Eosinophils % (Manual) Nucleated RBC % Seg Neutrophils # Seg Neutrophils # Man Lymphocytes # (Manual) Monocytes # (Manual) Eosinophils # (Manual) PT INR APTT Fibrinogen POC ABG pH ABG pH POC ABG pCO2 POC ABG pO2 ABG pO2 ABG HCO3 ABG O2 Saturation ABG Base Excess ABG Hemoglobin Oxyhemoglobin Sodium Potassium Chloride Carbon Dioxide BUN Creatinine Glucose POC Glucose 116 H 148 H Uric Acid Calcium Phosphorus Magnesium Iron TIBC AST ALT Total Creatine Kinase CK-MB (CK-2) Troponin T NT-Pro-B Natriuret Pep Total Protein Albumin Triglycerides HDL Cholesterol Folate Urine WBC (Auto) Urine Creatinine 292.8 H Urine Total Protein 269 H Vancomycin Trough 05/08/19 05/08/19 05/08/19 05:32 11:28 13:48 WBC RBC Hgb Hct MCV MCH MCHC RDW Plt Count Lymph % (Auto) [place] % (Auto) Eos % (Auto) Lymph # [place] # Eos # Seg Neutrophils % Seg Neuts % (Manual) Lymphocytes % (Manual) Monocytes % (Manual) Eosinophils % (Manual) Nucleated RBC % Seg Neutrophils # Seg Neutrophils # Man Lymphocytes # (Manual) Monocytes # (Manual) Eosinophils # (Manual) PT INR APTT Fibrinogen POC ABG pH ABG pH POC ABG pCO2 45.4 H POC ABG pO2 64 L ABG pO2 ABG HCO3 ABG O2 Saturation ABG Base Excess ABG Hemoglobin Oxyhemoglobin Sodium Potassium Chloride Carbon Dioxide BUN 73 H Creatinine 2.7 H Glucose 127 H POC Glucose 107 H Uric Acid Calcium 7.6 L Phosphorus Magnesium Iron TIBC AST ALT Total Creatine Kinase CK-MB (CK-2) Troponin T NT-Pro-B Natriuret Pep Total Protein Albumin Triglycerides HDL Cholesterol Folate Urine WBC (Auto) Urine Creatinine Urine Total Protein Vancomycin Trough 05/08/19 05/09/19 05/09/19 17:48 04:50 04:53 WBC RBC 3.07 L Hgb 8.5 L D Hct 29.3 L D MCV 96 H MCH MCHC 29 L RDW 18.1 H Plt Count Lymph % (Auto) [place] % (Auto) Eos % (Auto) Lymph # [place] # Eos # Seg Neutrophils % Seg Neuts % (Manual) Lymphocytes % (Manual) Monocytes % (Manual) Eosinophils % (Manual) Nucleated RBC % Seg Neutrophils # Seg Neutrophils # Man Lymphocytes # (Manual) Monocytes # (Manual) Eosinophils # (Manual) PT INR APTT Fibrinogen POC ABG pH 7.316 L ABG pH POC ABG pCO2 66.0 H POC ABG pO2 69 L ABG pO2 ABG HCO3 ABG O2 Saturation ABG Base Excess ABG Hemoglobin Oxyhemoglobin Sodium Potassium Chloride Carbon Dioxide BUN Creatinine Glucose POC Glucose 155 H Uric Acid Calcium Phosphorus Magnesium Iron TIBC AST ALT Total Creatine Kinase CK-MB (CK-2) Troponin T NT-Pro-B Natriuret Pep Total Protein Albumin Triglycerides HDL Cholesterol Folate Urine WBC (Auto) Urine Creatinine Urine Total Protein Vancomycin Trough 05/09/19 05/09/19 05/09/19 05:46 07:24 12:10 WBC RBC Hgb Hct MCV MCH MCHC RDW Plt Count Lymph % (Auto) [place] % (Auto) Eos % (Auto) Lymph # [place] # Eos # Seg Neutrophils % Seg Neuts % (Manual) Lymphocytes % (Manual) Monocytes % (Manual) Eosinophils % (Manual) Nucleated RBC % Seg Neutrophils # Seg Neutrophils # Man Lymphocytes # (Manual) Monocytes # (Manual) Eosinophils # (Manual) PT INR APTT Fibrinogen POC ABG pH ABG pH POC ABG pCO2 POC ABG pO2 ABG pO2 ABG HCO3 ABG O2 Saturation ABG Base Excess ABG Hemoglobin Oxyhemoglobin Sodium Potassium Chloride Carbon Dioxide BUN 73 H Creatinine 2.4 H Glucose 153 H POC Glucose 123 H 148 H Uric Acid Calcium 8.2 L Phosphorus Magnesium Iron TIBC AST 45 H ALT Total Creatine Kinase CK-MB (CK-2) Troponin T NT-Pro-B Natriuret Pep Total Protein 6.0 L Albumin 1.9 L Triglycerides HDL Cholesterol Folate Urine WBC (Auto) Urine Creatinine Urine Total Protein Vancomycin Trough 05/09/19 05/09/19 05/10/19 18:23 23:26 04:52 WBC RBC Hgb Hct MCV MCH MCHC RDW Plt Count Lymph % (Auto) [place] % (Auto) Eos % (Auto) Lymph # [place] # Eos # Seg Neutrophils % Seg Neuts % (Manual) Lymphocytes % (Manual) Monocytes % (Manual) Eosinophils % (Manual) Nucleated RBC % Seg Neutrophils # Seg Neutrophils # Man Lymphocytes # (Manual) Monocytes # (Manual) Eosinophils # (Manual) PT INR APTT Fibrinogen POC ABG pH 7.305 L ABG pH POC ABG pCO2 62.6 H POC ABG pO2 ABG pO2 ABG HCO3 ABG O2 Saturation ABG Base Excess ABG Hemoglobin Oxyhemoglobin Sodium Potassium Chloride Carbon Dioxide BUN Creatinine Glucose POC Glucose 147 H 121 H Uric Acid Calcium Phosphorus Magnesium Iron TIBC AST ALT Total Creatine Kinase CK-MB (CK-2) Troponin T NT-Pro-B Natriuret Pep Total Protein Albumin Triglycerides HDL Cholesterol Folate Urine WBC (Auto) Urine Creatinine Urine Total Protein Vancomycin Trough 05/10/19 05/10/19 05/10/19 05:00 05:00 05:50 WBC RBC Hgb 10.3 L Hct 33.7 L MCV MCH 27 L MCHC 31 L RDW 17.0 H Plt Count Lymph % (Auto) [place] % (Auto) Eos % (Auto) Lymph # [place] # Eos # Seg Neutrophils % Seg Neuts % (Manual) Lymphocytes % (Manual) Monocytes % (Manual) Eosinophils % (Manual) Nucleated RBC % Seg Neutrophils # Seg Neutrophils # Man Lymphocytes # (Manual) Monocytes # (Manual) Eosinophils # (Manual) PT INR APTT Fibrinogen POC ABG pH ABG pH POC ABG pCO2 POC ABG pO2 ABG pO2 ABG HCO3 ABG O2 Saturation ABG Base Excess ABG Hemoglobin Oxyhemoglobin Sodium 147 H Potassium Chloride Carbon Dioxide BUN 70 H Creatinine 2.6 H Glucose 155 H POC Glucose 158 H Uric Acid Calcium 8.2 L Phosphorus Magnesium Iron TIBC AST ALT Total Creatine Kinase CK-MB (CK-2) Troponin T NT-Pro-B Natriuret Pep Total Protein 6.1 L Albumin 2.5 L Triglycerides HDL Cholesterol Folate Urine WBC (Auto) Urine Creatinine Urine Total Protein Vancomycin Trough 05/10/19 05/11/19 05/11/19 13:14 07:26 11:40 WBC RBC Hgb Hct MCV MCH MCHC RDW Plt Count Lymph % (Auto) [place] % (Auto) Eos % (Auto) Lymph # [place] # Eos # Seg Neutrophils % Seg Neuts % (Manual) Lymphocytes % (Manual) Monocytes % (Manual) Eosinophils % (Manual) Nucleated RBC % Seg Neutrophils # Seg Neutrophils # Man Lymphocytes # (Manual) Monocytes # (Manual) Eosinophils # (Manual) PT INR APTT Fibrinogen POC ABG pH ABG pH POC ABG pCO2 48.0 H POC ABG pO2 58 L ABG pO2 ABG HCO3 ABG O2 Saturation ABG Base Excess ABG Hemoglobin Oxyhemoglobin Sodium 147 H Potassium Chloride 107.2 H Carbon Dioxide BUN 67 H Creatinine 2.6 H Glucose 121 H POC Glucose 159 H Uric Acid Calcium Phosphorus Magnesium Iron TIBC AST ALT Total Creatine Kinase CK-MB (CK-2) Troponin T NT-Pro-B Natriuret Pep Total Protein Albumin Triglycerides HDL Cholesterol Folate Urine WBC (Auto) Urine Creatinine Urine Total Protein Vancomycin Trough 05/11/19 05/11/19 05/12/19 18:13 23:46 04:40 WBC RBC Hgb Hct MCV MCH MCHC RDW Plt Count Lymph % (Auto) [place] % (Auto) Eos % (Auto) Lymph # [place] # Eos # Seg Neutrophils % Seg Neuts % (Manual) Lymphocytes % (Manual) Monocytes % (Manual) Eosinophils % (Manual) Nucleated RBC % Seg Neutrophils # Seg Neutrophils # Man Lymphocytes # (Manual) Monocytes # (Manual) Eosinophils # (Manual) PT INR APTT Fibrinogen POC ABG pH ABG pH 7.264 L POC ABG pCO2 POC ABG pO2 ABG pO2 66.8 L ABG HCO3 31.0 H ABG O2 Saturation 92.0 L ABG Base Excess ABG Hemoglobin 10.3 L Oxyhemoglobin 90.1 L Sodium Potassium Chloride Carbon Dioxide BUN Creatinine Glucose POC Glucose 120 H 121 H Uric Acid Calcium Phosphorus Magnesium Iron TIBC AST ALT Total Creatine Kinase CK-MB (CK-2) Troponin T NT-Pro-B Natriuret Pep Total Protein Albumin Triglycerides HDL Cholesterol Folate Urine WBC (Auto) Urine Creatinine Urine Total Protein Vancomycin Trough 05/12/19 05/12/19 05/12/19 04:45 04:45 11:14 WBC RBC Hgb 10.2 L Hct 32.4 L MCV MCH MCHC 31 L RDW 17.2 H Plt Count Lymph % (Auto) [place] % (Auto) Eos % (Auto) Lymph # [place] # Eos # Seg Neutrophils % Seg Neuts % (Manual) Lymphocytes % (Manual) Monocytes % (Manual) Eosinophils % (Manual) Nucleated RBC % Seg Neutrophils # Seg Neutrophils # Man Lymphocytes # (Manual) Monocytes # (Manual) Eosinophils # (Manual) PT INR APTT Fibrinogen POC ABG pH 7.284 L ABG pH POC ABG pCO2 67.8 H POC ABG pO2 ABG pO2 ABG HCO3 ABG O2 Saturation ABG Base Excess ABG Hemoglobin Oxyhemoglobin Sodium Potassium Chloride Carbon Dioxide BUN 63 H Creatinine 2.4 H Glucose 110 H POC Glucose Uric Acid Calcium Phosphorus Magnesium Iron TIBC AST ALT Total Creatine Kinase CK-MB (CK-2) Troponin T NT-Pro-B Natriuret Pep Total Protein Albumin Triglycerides HDL Cholesterol Folate Urine WBC (Auto) Urine Creatinine Urine Total Protein Vancomycin Trough 05/12/19 05/12/19 05/13/19 11:44 23:11 04:30 WBC RBC Hgb Hct MCV MCH MCHC RDW Plt Count Lymph % (Auto) [place] % (Auto) Eos % (Auto) Lymph # [place] # Eos # Seg Neutrophils % Seg Neuts % (Manual) Lymphocytes % (Manual) Monocytes % (Manual) Eosinophils % (Manual) Nucleated RBC % Seg Neutrophils # Seg Neutrophils # Man Lymphocytes # (Manual) Monocytes # (Manual) Eosinophils # (Manual) PT INR APTT Fibrinogen POC ABG pH ABG pH 7.288 L POC ABG pCO2 POC ABG pO2 ABG pO2 109.7 H ABG HCO3 30.9 H ABG O2 Saturation ABG Base Excess 3.2 H ABG Hemoglobin 9.6 L Oxyhemoglobin Sodium Potassium Chloride Carbon Dioxide BUN Creatinine Glucose POC Glucose 126 H 147 H Uric Acid Calcium Phosphorus Magnesium Iron TIBC AST ALT Total Creatine Kinase CK-MB (CK-2) Troponin T NT-Pro-B Natriuret Pep Total Protein Albumin Triglycerides HDL Cholesterol Folate Urine WBC (Auto) Urine Creatinine Urine Total Protein Vancomycin Trough 05/13/19 05/13/19 05/14/19 06:27 11:58 04:00 WBC RBC 3.16 L Hgb 9.3 L Hct 27.9 L MCV MCH MCHC RDW 17.1 H Plt Count Lymph % (Auto) [place] % (Auto) Eos % (Auto) Lymph # [place] # Eos # Seg Neutrophils % Seg Neuts % (Manual) Lymphocytes % (Manual) Monocytes % (Manual) Eosinophils % (Manual) Nucleated RBC % Seg Neutrophils # Seg Neutrophils # Man Lymphocytes # (Manual) Monocytes # (Manual) Eosinophils # (Manual) PT INR APTT Fibrinogen POC ABG pH ABG pH POC ABG pCO2 POC ABG pO2 ABG pO2 ABG HCO3 ABG O2 Saturation ABG Base Excess ABG Hemoglobin Oxyhemoglobin Sodium Potassium Chloride Carbon Dioxide BUN Creatinine Glucose POC Glucose 113 H 130 H Uric Acid Calcium Phosphorus Magnesium Iron TIBC AST ALT Total Creatine Kinase CK-MB (CK-2) Troponin T NT-Pro-B Natriuret Pep Total Protein Albumin Triglycerides HDL Cholesterol Folate Urine WBC (Auto) Urine Creatinine Urine Total Protein Vancomycin Trough 05/14/19 05/14/19 05/14/19 04:00 04:34 05:32 WBC RBC Hgb Hct MCV MCH MCHC RDW Plt Count Lymph % (Auto) [place] % (Auto) Eos % (Auto) Lymph # [place] # Eos # Seg Neutrophils % Seg Neuts % (Manual) Lymphocytes % (Manual) Monocytes % (Manual) Eosinophils % (Manual) Nucleated RBC % Seg Neutrophils # Seg Neutrophils # Man Lymphocytes # (Manual) Monocytes # (Manual) Eosinophils # (Manual) PT INR APTT Fibrinogen POC ABG pH 7.328 L ABG pH POC ABG pCO2 61.7 H POC ABG pO2 ABG pO2 ABG HCO3 ABG O2 Saturation ABG Base Excess ABG Hemoglobin Oxyhemoglobin Sodium 135 L D Potassium Chloride Carbon Dioxide BUN 57 H Creatinine 2.2 H Glucose 115 H POC Glucose 115 H Uric Acid Calcium 8.1 L Phosphorus Magnesium Iron TIBC AST ALT Total Creatine Kinase CK-MB (CK-2) Troponin T NT-Pro-B Natriuret Pep Total Protein Albumin Triglycerides HDL Cholesterol Folate Urine WBC (Auto) Urine Creatinine Urine Total Protein Vancomycin Trough 05/14/19 05/15/19 05/15/19 12:11 05:10 05:24 WBC RBC Hgb Hct MCV MCH MCHC RDW Plt Count Lymph % (Auto) [place] % (Auto) Eos % (Auto) Lymph # [place] # Eos # Seg Neutrophils % Seg Neuts % (Manual) Lymphocytes % (Manual) Monocytes % (Manual) Eosinophils % (Manual) Nucleated RBC % Seg Neutrophils # Seg Neutrophils # Man Lymphocytes # (Manual) Monocytes # (Manual) Eosinophils # (Manual) PT INR APTT Fibrinogen POC ABG pH ABG pH 7.342 L POC ABG pCO2 POC ABG pO2 ABG pO2 79.1 L ABG HCO3 28.2 H ABG O2 Saturation ABG Base Excess ABG Hemoglobin 7.0 L Oxyhemoglobin 94.4 L Sodium Potassium Chloride Carbon Dioxide BUN Creatinine Glucose POC Glucose 110 H 116 H Uric Acid Calcium Phosphorus Magnesium Iron TIBC AST ALT Total Creatine Kinase CK-MB (CK-2) Troponin T NT-Pro-B Natriuret Pep Total Protein Albumin Triglycerides HDL Cholesterol Folate Urine WBC (Auto) Urine Creatinine Urine Total Protein Vancomycin Trough 05/15/19 05/15/19 05/16/19 09:00 18:12 04:50 WBC RBC Hgb Hct MCV MCH MCHC RDW Plt Count Lymph % (Auto) [place] % (Auto) Eos % (Auto) Lymph # [place] # Eos # Seg Neutrophils % Seg Neuts % (Manual) Lymphocytes % (Manual) Monocytes % (Manual) Eosinophils % (Manual) Nucleated RBC % Seg Neutrophils # Seg Neutrophils # Man Lymphocytes # (Manual) Monocytes # (Manual) Eosinophils # (Manual) PT INR APTT Fibrinogen POC ABG pH ABG pH 7.250 L POC ABG pCO2 POC ABG pO2 ABG pO2 76.4 L ABG HCO3 ABG O2 Saturation 94.6 L ABG Base Excess -3.1 L ABG Hemoglobin 9.7 L Oxyhemoglobin 92.4 L Sodium Potassium Chloride Carbon Dioxide BUN Creatinine Glucose POC Glucose 110 H Uric Acid Calcium Phosphorus Magnesium Iron TIBC AST ALT Total Creatine Kinase CK-MB (CK-2) Troponin T NT-Pro-B Natriuret Pep Total Protein Albumin Triglycerides HDL Cholesterol Folate Urine WBC (Auto) Urine Creatinine Urine Total Protein Vancomycin Trough 20.5 H 05/16/19 05/16/19 05/17/19 05:50 05:50 04:20 WBC RBC 3.36 L 3.44 L Hgb 9.4 L 9.3 L Hct 29.1 L 29.7 L MCV MCH 27 L MCHC 31 L RDW 17.6 H 17.6 H Plt Count Lymph % (Auto) [place] % (Auto) Eos % (Auto) Lymph # [place] # Eos # Seg Neutrophils % Seg Neuts % (Manual) 77.0 H Lymphocytes % (Manual) 5.0 L Monocytes % (Manual) Eosinophils % (Manual) 10.0 H Nucleated RBC % Seg Neutrophils # Seg Neutrophils # Man Lymphocytes # (Manual) 0.5 L Monocytes # (Manual) Eosinophils # (Manual) 0.9 H PT INR APTT Fibrinogen POC ABG pH ABG pH POC ABG pCO2 POC ABG pO2 ABG pO2 ABG HCO3 ABG O2 Saturation ABG Base Excess ABG Hemoglobin Oxyhemoglobin Sodium Potassium Chloride Carbon Dioxide BUN 83 H Creatinine 4.4 H D Glucose 118 H POC Glucose Uric Acid Calcium Phosphorus Magnesium Iron TIBC AST ALT Total Creatine Kinase CK-MB (CK-2) Troponin T NT-Pro-B Natriuret Pep Total Protein Albumin Triglycerides HDL Cholesterol Folate Urine WBC (Auto) Urine Creatinine Urine Total Protein Vancomycin Trough 05/17/19 05/17/19 05/18/19 04:30 Unknown 01:50 WBC RBC 3.49 L Hgb 9.4 L Hct 30.0 L MCV MCH 27 L MCHC 31 L RDW 17.8 H Plt Count Lymph % (Auto) 7.9 L [place] % (Auto) 15.4 H Eos % (Auto) 6.3 H Lymph # 0.7 L [place] # 1.4 H Eos # 0.6 H Seg Neutrophils % 70.2 H Seg Neuts % (Manual) Lymphocytes % (Manual) Monocytes % (Manual) Eosinophils % (Manual) Nucleated RBC % Seg Neutrophils # Seg Neutrophils # Man Lymphocytes # (Manual) Monocytes # (Manual) Eosinophils # (Manual) PT INR APTT Fibrinogen POC ABG pH ABG pH 7.272 L POC ABG pCO2 POC ABG pO2 ABG pO2 75.7 L ABG HCO3 ABG O2 Saturation 93.8 L ABG Base Excess -3.0 L ABG Hemoglobin 7.8 L Oxyhemoglobin 91.6 L Sodium Potassium 5.2 H Chloride Carbon Dioxide BUN 96 H Creatinine 5.7 H Glucose 112 H POC Glucose Uric Acid Calcium Phosphorus Magnesium Iron TIBC AST ALT Total Creatine Kinase CK-MB (CK-2) Troponin T NT-Pro-B Natriuret Pep Total Protein Albumin Triglycerides 173 H HDL Cholesterol Folate Urine WBC (Auto) Urine Creatinine Urine Total Protein Vancomycin Trough 05/18/19 05/18/19 05/18/19 01:50 04:41 05:24 WBC RBC Hgb Hct MCV MCH MCHC RDW Plt Count Lymph % (Auto) [place] % (Auto) Eos % (Auto) Lymph # [place] # Eos # Seg Neutrophils % Seg Neuts % (Manual) Lymphocytes % (Manual) Monocytes % (Manual) Eosinophils % (Manual) Nucleated RBC % Seg Neutrophils # Seg Neutrophils # Man Lymphocytes # (Manual) Monocytes # (Manual) Eosinophils # (Manual) PT INR APTT Fibrinogen POC ABG pH 7.260 L ABG pH POC ABG pCO2 54.9 H POC ABG pO2 ABG pO2 ABG HCO3 ABG O2 Saturation ABG Base Excess ABG Hemoglobin Oxyhemoglobin Sodium Potassium 5.6 H Chloride Carbon Dioxide BUN 104 H Creatinine 6.6 H Glucose 107 H POC Glucose 106 H Uric Acid Calcium Phosphorus Magnesium Iron TIBC AST ALT Total Creatine Kinase CK-MB (CK-2) Troponin T NT-Pro-B Natriuret Pep Total Protein Albumin Triglycerides HDL Cholesterol Folate Urine WBC (Auto) Urine Creatinine Urine Total Protein Vancomycin Trough 05/18/19 05/18/19 05/19/19 11:34 23:26 04:06 WBC RBC 3.22 L Hgb 8.8 L Hct 27.3 L MCV MCH 27 L MCHC RDW 17.5 H Plt Count Lymph % (Auto) [place] % (Auto) Eos % (Auto) Lymph # [place] # Eos # Seg Neutrophils % Seg Neuts % (Manual) 74.0 H Lymphocytes % (Manual) 4.0 L Monocytes % (Manual) 11.0 H Eosinophils % (Manual) 7.0 H Nucleated RBC % 1.0 H Seg Neutrophils # Seg Neutrophils # Man Lymphocytes # (Manual) 0.3 L Monocytes # (Manual) 0.9 H Eosinophils # (Manual) 0.6 H PT INR APTT Fibrinogen POC ABG pH ABG pH POC ABG pCO2 POC ABG pO2 ABG pO2 ABG HCO3 ABG O2 Saturation ABG Base Excess ABG Hemoglobin Oxyhemoglobin Sodium Potassium Chloride Carbon Dioxide BUN Creatinine Glucose POC Glucose 152 H 112 H Uric Acid Calcium Phosphorus Magnesium Iron TIBC AST ALT Total Creatine Kinase CK-MB (CK-2) Troponin T NT-Pro-B Natriuret Pep Total Protein Albumin Triglycerides HDL Cholesterol Folate Urine WBC (Auto) Urine Creatinine Urine Total Protein Vancomycin Trough 05/19/19 05/19/19 05/20/19 04:06 06:00 04:00 WBC RBC 3.40 L Hgb 9.2 L Hct 28.6 L MCV MCH 27 L MCHC RDW 17.6 H Plt Count Lymph % (Auto) [place] % (Auto) Eos % (Auto) Lymph # [place] # Eos # Seg Neutrophils % Seg Neuts % (Manual) Lymphocytes % (Manual) 11.0 L Monocytes % (Manual) Eosinophils % (Manual) 14.0 H Nucleated RBC % Seg Neutrophils # Seg Neutrophils # Man Lymphocytes # (Manual) 1.1 L Monocytes # (Manual) Eosinophils # (Manual) 1.4 H PT INR APTT Fibrinogen POC ABG pH ABG pH 7.315 L POC ABG pCO2 POC ABG pO2 ABG pO2 ABG HCO3 ABG O2 Saturation ABG Base Excess ABG Hemoglobin 6.7 L Oxyhemoglobin 94.1 L Sodium Potassium 5.2 H Chloride Carbon Dioxide 21 L BUN 110 H Creatinine 7.2 H Glucose POC Glucose Uric Acid Calcium 8.3 L Phosphorus Magnesium Iron TIBC AST ALT Total Creatine Kinase CK-MB (CK-2) Troponin T NT-Pro-B Natriuret Pep Total Protein Albumin Triglycerides HDL Cholesterol Folate Urine WBC (Auto) Urine Creatinine Urine Total Protein Vancomycin Trough 05/20/19 05/20/19 05/20/19 04:00 05:48 12:00 WBC RBC Hgb Hct MCV MCH MCHC RDW Plt Count Lymph % (Auto) [place] % (Auto) Eos % (Auto) Lymph # [place] # Eos # Seg Neutrophils % Seg Neuts % (Manual) Lymphocytes % (Manual) Monocytes % (Manual) Eosinophils % (Manual) Nucleated RBC % Seg Neutrophils # Seg Neutrophils # Man Lymphocytes # (Manual) Monocytes # (Manual) Eosinophils # (Manual) PT INR APTT Fibrinogen POC ABG pH ABG pH 7.281 L POC ABG pCO2 POC ABG pO2 ABG pO2 78.7 L ABG HCO3 ABG O2 Saturation 94.5 L ABG Base Excess -3.0 L ABG Hemoglobin 9.9 L Oxyhemoglobin 92.5 L Sodium 136 L Potassium 5.7 H Chloride 96.3 L Carbon Dioxide BUN 125 H Creatinine 8.3 H Glucose 106 H POC Glucose Uric Acid Calcium Phosphorus Magnesium Iron TIBC AST ALT Total Creatine Kinase CK-MB (CK-2) Troponin T NT-Pro-B Natriuret Pep Total Protein Albumin Triglycerides HDL Cholesterol Folate Urine WBC (Auto) 26.0 H Urine Creatinine Urine Total Protein Vancomycin Trough 05/21/19 05/21/19 05/21/19 04:33 05:20 Unknown WBC RBC 3.38 L Hgb 9.1 L Hct 28.5 L MCV MCH 27 L MCHC RDW 17.4 H Plt Count Lymph % (Auto) [place] % (Auto) Eos % (Auto) Lymph # [place] # Eos # Seg Neutrophils % Seg Neuts % (Manual) 71.0 H Lymphocytes % (Manual) 1.0 L Monocytes % (Manual) 11.0 H Eosinophils % (Manual) 6.0 H Nucleated RBC % Seg Neutrophils # Seg Neutrophils # Man Lymphocytes # (Manual) 0.1 L Monocytes # (Manual) 1.0 H Eosinophils # (Manual) 0.6 H PT INR APTT Fibrinogen POC ABG pH 7.315 L ABG pH POC ABG pCO2 57.8 H POC ABG pO2 68 L ABG pO2 ABG HCO3 ABG O2 Saturation ABG Base Excess ABG Hemoglobin Oxyhemoglobin Sodium Potassium Chloride 96.3 L Carbon Dioxide BUN 102 H Creatinine 7.0 H Glucose 103 H POC Glucose Uric Acid Calcium Phosphorus Magnesium Iron TIBC AST ALT Total Creatine Kinase CK-MB (CK-2) Troponin T NT-Pro-B Natriuret Pep Total Protein Albumin Triglycerides HDL Cholesterol Folate Urine WBC (Auto) Urine Creatinine Urine Total Protein Vancomycin Trough 05/22/19 05/22/19 05/22/19 03:54 06:25 06:25 WBC RBC 3.22 L Hgb 8.6 L Hct 27.0 L MCV MCH 27 L MCHC RDW 17.5 H Plt Count Lymph % (Auto) [place] % (Auto) 16.2 H Eos % (Auto) 10.8 H Lymph # [place] # 1.3 H Eos # 0.9 H Seg Neutrophils % Seg Neuts % (Manual) Lymphocytes % (Manual) 10.0 L Monocytes % (Manual) 13.0 H Eosinophils % (Manual) 8.0 H Nucleated RBC % Seg Neutrophils # Seg Neutrophils # Man Lymphocytes # (Manual) 0.9 L Monocytes # (Manual) 1.1 H Eosinophils # (Manual) 0.7 H PT INR APTT Fibrinogen POC ABG pH 7.313 L ABG pH POC ABG pCO2 55.0 H POC ABG pO2 ABG pO2 ABG HCO3 ABG O2 Saturation ABG Base Excess ABG Hemoglobin Oxyhemoglobin Sodium 135 L Potassium Chloride 94.3 L Carbon Dioxide BUN 117 H Creatinine 7.8 H Glucose POC Glucose Uric Acid Calcium 8.2 L Phosphorus Magnesium Iron TIBC AST ALT Total Creatine Kinase CK-MB (CK-2) Troponin T NT-Pro-B Natriuret Pep Total Protein Albumin Triglycerides HDL Cholesterol Folate Urine WBC (Auto) Urine Creatinine Urine Total Protein Vancomycin Trough 05/23/19 05/24/19 05/24/19 05:21 05:00 05:00 WBC RBC 3.18 L Hgb 8.5 L Hct 26.7 L MCV MCH 27 L MCHC RDW 17.9 H Plt Count Lymph % (Auto) [place] % (Auto) Eos % (Auto) Lymph # [place] # Eos # Seg Neutrophils % Seg Neuts % (Manual) Lymphocytes % (Manual) Monocytes % (Manual) Eosinophils % (Manual) Nucleated RBC % Seg Neutrophils # Seg Neutrophils # Man Lymphocytes # (Manual) Monocytes # (Manual) Eosinophils # (Manual) PT INR APTT Fibrinogen POC ABG pH ABG pH POC ABG pCO2 49.7 H POC ABG pO2 73 L ABG pO2 ABG HCO3 ABG O2 Saturation ABG Base Excess ABG Hemoglobin Oxyhemoglobin Sodium Potassium Chloride 95.7 L Carbon Dioxide BUN 97 H Creatinine 6.5 H Glucose POC Glucose Uric Acid Calcium 8.0 L Phosphorus Magnesium Iron TIBC AST ALT Total Creatine Kinase CK-MB (CK-2) Troponin T NT-Pro-B Natriuret Pep Total Protein Albumin Triglycerides HDL Cholesterol Folate Urine WBC (Auto) Urine Creatinine Urine Total Protein Vancomycin Trough 05/24/19 05/25/19 05/25/19 06:17 04:22 15:45 WBC RBC 2.98 L Hgb 8.1 L Hct 24.9 L MCV MCH 27 L MCHC RDW 17.8 H Plt Count Lymph % (Auto) [place] % (Auto) Eos % (Auto) Lymph # [place] # Eos # Seg Neutrophils % Seg Neuts % (Manual) Lymphocytes % (Manual) Monocytes % (Manual) Eosinophils % (Manual) Nucleated RBC % Seg Neutrophils # Seg Neutrophils # Man Lymphocytes # (Manual) Monocytes # (Manual) Eosinophils # (Manual) PT INR APTT Fibrinogen POC ABG pH 7.330 L 7.313 L ABG pH POC ABG pCO2 52.5 H 51.1 H POC ABG pO2 77 L ABG pO2 ABG HCO3 ABG O2 Saturation ABG Base Excess ABG Hemoglobin Oxyhemoglobin Sodium Potassium Chloride Carbon Dioxide BUN Creatinine Glucose POC Glucose Uric Acid Calcium Phosphorus Magnesium Iron TIBC AST ALT Total Creatine Kinase CK-MB (CK-2) Troponin T NT-Pro-B Natriuret Pep Total Protein Albumin Triglycerides HDL Cholesterol Folate Urine WBC (Auto) Urine Creatinine Urine Total Protein Vancomycin Trough 05/25/19 05/26/19 05/26/19 15:45 04:13 05:00 WBC RBC 3.10 L Hgb 8.4 L Hct 26.0 L MCV MCH 27 L MCHC RDW 17.4 H Plt Count Lymph % (Auto) [place] % (Auto) Eos % (Auto) Lymph # [place] # Eos # Seg Neutrophils % Seg Neuts % (Manual) Lymphocytes % (Manual) Monocytes % (Manual) Eosinophils % (Manual) Nucleated RBC % Seg Neutrophils # Seg Neutrophils # Man Lymphocytes # (Manual) Monocytes # (Manual) Eosinophils # (Manual) PT INR APTT Fibrinogen POC ABG pH 7.295 L ABG pH POC ABG pCO2 56.5 H POC ABG pO2 63 L ABG pO2 ABG HCO3 ABG O2 Saturation ABG Base Excess ABG Hemoglobin Oxyhemoglobin Sodium 136 L Potassium Chloride 96.8 L Carbon Dioxide BUN 83 H Creatinine 5.9 H Glucose POC Glucose Uric Acid Calcium 7.6 L Phosphorus Magnesium Iron TIBC AST ALT Total Creatine Kinase CK-MB (CK-2) Troponin T NT-Pro-B Natriuret Pep Total Protein Albumin Triglycerides HDL Cholesterol Folate Urine WBC (Auto) Urine Creatinine Urine Total Protein Vancomycin Trough 05/26/19 05/27/19 05/28/19 05:00 04:48 04:47 WBC RBC Hgb Hct MCV MCH MCHC RDW Plt Count Lymph % (Auto) [place] % (Auto) Eos % (Auto) Lymph # [place] # Eos # Seg Neutrophils % Seg Neuts % (Manual) Lymphocytes % (Manual) Monocytes % (Manual) Eosinophils % (Manual) Nucleated RBC % Seg Neutrophils # Seg Neutrophils # Man Lymphocytes # (Manual) Monocytes # (Manual) Eosinophils # (Manual) PT INR APTT Fibrinogen POC ABG pH 7.323 L ABG pH 7.284 L POC ABG pCO2 56.2 H POC ABG pO2 ABG pO2 71.6 L ABG HCO3 ABG O2 Saturation 92.0 L ABG Base Excess ABG Hemoglobin 7.7 L Oxyhemoglobin 89.9 L Sodium 136 L Potassium Chloride 95.3 L Carbon Dioxide BUN 96 H Creatinine 6.5 H Glucose 108 H POC Glucose Uric Acid Calcium 7.6 L Phosphorus Magnesium Iron TIBC AST ALT Total Creatine Kinase CK-MB (CK-2) Troponin T NT-Pro-B Natriuret Pep Total Protein Albumin Triglycerides HDL Cholesterol Folate Urine WBC (Auto) Urine Creatinine Urine Total Protein Vancomycin Trough 05/28/19 05/29/19 05/29/19 12:30 12:47 23:44 WBC RBC Hgb Hct MCV MCH MCHC RDW Plt Count Lymph % (Auto) [place] % (Auto) Eos % (Auto) Lymph # [place] # Eos # Seg Neutrophils % Seg Neuts % (Manual) Lymphocytes % (Manual) Monocytes % (Manual) Eosinophils % (Manual) Nucleated RBC % Seg Neutrophils # Seg Neutrophils # Man Lymphocytes # (Manual) Monocytes # (Manual) Eosinophils # (Manual) PT INR APTT Fibrinogen POC ABG pH ABG pH POC ABG pCO2 POC ABG pO2 ABG pO2 ABG HCO3 ABG O2 Saturation ABG Base Excess ABG Hemoglobin Oxyhemoglobin Sodium 135 L Potassium Chloride 95.3 L Carbon Dioxide BUN 82 H Creatinine 6.0 H Glucose POC Glucose 136 H 159 H Uric Acid Calcium 7.5 L Phosphorus Magnesium Iron TIBC AST ALT Total Creatine Kinase CK-MB (CK-2) Troponin T NT-Pro-B Natriuret Pep Total Protein Albumin Triglycerides HDL Cholesterol Folate Urine WBC (Auto) Urine Creatinine Urine Total Protein Vancomycin Trough 05/30/19 05/30/19 05/30/19 04:30 05:38 12:00 WBC RBC 3.01 L Hgb 8.2 L Hct 25.3 L MCV MCH 27 L MCHC RDW 17.5 H Plt Count Lymph % (Auto) [place] % (Auto) Eos % (Auto) Lymph # [place] # Eos # Seg Neutrophils % Seg Neuts % (Manual) 80.0 H Lymphocytes % (Manual) 10.0 L Monocytes % (Manual) Eosinophils % (Manual) Nucleated RBC % Seg Neutrophils # Seg Neutrophils # Man 8.0 H Lymphocytes # (Manual) 1.0 L Monocytes # (Manual) Eosinophils # (Manual) PT INR APTT Fibrinogen POC ABG pH ABG pH POC ABG pCO2 POC ABG pO2 73 L ABG pO2 ABG HCO3 ABG O2 Saturation ABG Base Excess ABG Hemoglobin Oxyhemoglobin Sodium Potassium Chloride Carbon Dioxide BUN Creatinine Glucose POC Glucose 166 H Uric Acid Calcium Phosphorus Magnesium Iron TIBC AST ALT Total Creatine Kinase CK-MB (CK-2) Troponin T NT-Pro-B Natriuret Pep Total Protein Albumin Triglycerides HDL Cholesterol Folate Urine WBC (Auto) Urine Creatinine Urine Total Protein Vancomycin Trough 05/30/19 05/31/19 05/31/19 23:45 04:07 13:04 WBC 14.3 H RBC 2.88 L Hgb 7.7 L Hct 23.9 L MCV 83 L MCH 27 L MCHC RDW 17.8 H Plt Count Lymph % (Auto) [place] % (Auto) Eos % (Auto) Lymph # [place] # Eos # Seg Neutrophils % Seg Neuts % (Manual) 83.0 H Lymphocytes % (Manual) 11.0 L Monocytes % (Manual) Eosinophils % (Manual) Nucleated RBC % Seg Neutrophils # Seg Neutrophils # Man 11.9 H Lymphocytes # (Manual) Monocytes # (Manual) 0.9 H Eosinophils # (Manual) PT INR APTT Fibrinogen POC ABG pH ABG pH POC ABG pCO2 47.4 H POC ABG pO2 ABG pO2 ABG HCO3 ABG O2 Saturation ABG Base Excess ABG Hemoglobin Oxyhemoglobin Sodium Potassium Chloride Carbon Dioxide BUN Creatinine Glucose POC Glucose 209 H Uric Acid Calcium Phosphorus Magnesium Iron TIBC AST ALT Total Creatine Kinase CK-MB (CK-2) Troponin T NT-Pro-B Natriuret Pep Total Protein Albumin Triglycerides HDL Cholesterol Folate Urine WBC (Auto) Urine Creatinine Urine Total Protein Vancomycin Trough 05/31/19 05/31/19 06/01/19 13:04 16:42 00:15 WBC RBC Hgb Hct MCV MCH MCHC RDW Plt Count Lymph % (Auto) [place] % (Auto) Eos % (Auto) Lymph # [place] # Eos # Seg Neutrophils % Seg Neuts % (Manual) Lymphocytes % (Manual) Monocytes % (Manual) Eosinophils % (Manual) Nucleated RBC % Seg Neutrophils # Seg Neutrophils # Man Lymphocytes # (Manual) Monocytes # (Manual) Eosinophils # (Manual) PT INR APTT Fibrinogen POC ABG pH ABG pH POC ABG pCO2 POC ABG pO2 ABG pO2 ABG HCO3 ABG O2 Saturation ABG Base Excess ABG Hemoglobin Oxyhemoglobin Sodium 129 L Potassium Chloride 88.6 L Carbon Dioxide 19 L BUN 117 H Creatinine 6.7 H Glucose 205 H POC Glucose 228 H 223 H Uric Acid Calcium 7.4 L Phosphorus 7.40 H Magnesium Iron TIBC AST 58 H ALT 149 H Total Creatine Kinase CK-MB (CK-2) Troponin T NT-Pro-B Natriuret Pep Total Protein 6.0 L Albumin 2.5 L Triglycerides HDL Cholesterol Folate Urine WBC (Auto) Urine Creatinine Urine Total Protein Vancomycin Trough 06/01/19 06/01/19 06/01/19 04:33 05:27 12:31 WBC RBC Hgb Hct MCV MCH MCHC RDW Plt Count Lymph % (Auto) [place] % (Auto) Eos % (Auto) Lymph # [place] # Eos # Seg Neutrophils % Seg Neuts % (Manual) Lymphocytes % (Manual) Monocytes % (Manual) Eosinophils % (Manual) Nucleated RBC % Seg Neutrophils # Seg Neutrophils # Man Lymphocytes # (Manual) Monocytes # (Manual) Eosinophils # (Manual) PT INR APTT Fibrinogen POC ABG pH ABG pH POC ABG pCO2 POC ABG pO2 ABG pO2 56.9 L ABG HCO3 ABG O2 Saturation 85.9 L ABG Base Excess ABG Hemoglobin 8.1 L Oxyhemoglobin 83.6 L Sodium Potassium Chloride Carbon Dioxide BUN Creatinine Glucose POC Glucose 183 H 217 H Uric Acid Calcium Phosphorus Magnesium Iron TIBC AST ALT Total Creatine Kinase CK-MB (CK-2) Troponin T NT-Pro-B Natriuret Pep Total Protein Albumin Triglycerides HDL Cholesterol Folate Urine WBC (Auto) Urine Creatinine Urine Total Protein Vancomycin Trough 06/01/19 06/02/19 06/02/19 18:20 00:00 05:33 WBC RBC Hgb Hct MCV MCH MCHC RDW Plt Count Lymph % (Auto) [place] % (Auto) Eos % (Auto) Lymph # [place] # Eos # Seg Neutrophils % Seg Neuts % (Manual) Lymphocytes % (Manual) Monocytes % (Manual) Eosinophils % (Manual) Nucleated RBC % Seg Neutrophils # Seg Neutrophils # Man Lymphocytes # (Manual) Monocytes # (Manual) Eosinophils # (Manual) PT INR APTT Fibrinogen POC ABG pH ABG pH POC ABG pCO2 POC ABG pO2 ABG pO2 ABG HCO3 ABG O2 Saturation ABG Base Excess ABG Hemoglobin Oxyhemoglobin Sodium Potassium Chloride Carbon Dioxide BUN Creatinine Glucose POC Glucose 265 H 279 H 259 H Uric Acid Calcium Phosphorus Magnesium Iron TIBC AST ALT Total Creatine Kinase CK-MB (CK-2) Troponin T NT-Pro-B Natriuret Pep Total Protein Albumin Triglycerides HDL Cholesterol Folate Urine WBC (Auto) Urine Creatinine Urine Total Protein Vancomycin Trough 06/02/19 06/02/19 06/02/19 11:06 11:06 11:42 WBC 13.1 H RBC 2.92 L Hgb 7.9 L Hct 24.4 L MCV MCH 27 L MCHC RDW 17.4 H Plt Count Lymph % (Auto) [place] % (Auto) Eos % (Auto) Lymph # [place] # Eos # Seg Neutrophils % Seg Neuts % (Manual) 78.0 H Lymphocytes % (Manual) 12.0 L Monocytes % (Manual) 10.0 H Eosinophils % (Manual) Nucleated RBC % Seg Neutrophils # Seg Neutrophils # Man 10.2 H Lymphocytes # (Manual) Monocytes # (Manual) 1.3 H Eosinophils # (Manual) PT INR APTT Fibrinogen POC ABG pH ABG pH POC ABG pCO2 POC ABG pO2 ABG pO2 ABG HCO3 ABG O2 Saturation ABG Base Excess ABG Hemoglobin Oxyhemoglobin Sodium 135 L Potassium Chloride 94.7 L Carbon Dioxide 21 L BUN 107 H Creatinine 4.5 H Glucose 286 H POC Glucose 263 H Uric Acid Calcium 7.9 L Phosphorus 6.30 H Magnesium Iron TIBC AST ALT 104 H Total Creatine Kinase CK-MB (CK-2) Troponin T NT-Pro-B Natriuret Pep Total Protein 6.0 L Albumin 2.7 L Triglycerides HDL Cholesterol Folate Urine WBC (Auto) Urine Creatinine Urine Total Protein Vancomycin Trough 06/02/19 06/02/19 06/03/19 18:17 23:55 05:30 WBC RBC Hgb Hct MCV MCH MCHC RDW Plt Count Lymph % (Auto) [place] % (Auto) Eos % (Auto) Lymph # [place] # Eos # Seg Neutrophils % Seg Neuts % (Manual) Lymphocytes % (Manual) Monocytes % (Manual) Eosinophils % (Manual) Nucleated RBC % Seg Neutrophils # Seg Neutrophils # Man Lymphocytes # (Manual) Monocytes # (Manual) Eosinophils # (Manual) PT INR APTT Fibrinogen POC ABG pH ABG pH POC ABG pCO2 POC ABG pO2 ABG pO2 ABG HCO3 ABG O2 Saturation ABG Base Excess ABG Hemoglobin Oxyhemoglobin Sodium Potassium Chloride 95.1 L Carbon Dioxide 21 L BUN 119 H Creatinine 4.1 H Glucose 330 H POC Glucose 276 H 244 H Uric Acid Calcium 8.1 L Phosphorus Magnesium Iron TIBC AST ALT 98 H Total Creatine Kinase CK-MB (CK-2) Troponin T NT-Pro-B Natriuret Pep Total Protein 5.8 L Albumin 2.8 L Triglycerides HDL Cholesterol Folate Urine WBC (Auto) Urine Creatinine Urine Total Protein Vancomycin Trough 06/03/19 06/03/19 06/03/19 05:30 06:04 09:42 WBC 12.8 H RBC 3.01 L Hgb 8.2 L Hct 25.4 L MCV MCH 27 L MCHC RDW 17.5 H Plt Count Lymph % (Auto) [place] % (Auto) Eos % (Auto) Lymph # [place] # Eos # Seg Neutrophils % Seg Neuts % (Manual) 78.0 H Lymphocytes % (Manual) 10.0 L Monocytes % (Manual) 12.0 H Eosinophils % (Manual) Nucleated RBC % Seg Neutrophils # Seg Neutrophils # Man 10.0 H Lymphocytes # (Manual) Monocytes # (Manual) 1.5 H Eosinophils # (Manual) PT INR APTT Fibrinogen POC ABG pH ABG pH POC ABG pCO2 POC ABG pO2 ABG pO2 ABG HCO3 ABG O2 Saturation ABG Base Excess ABG Hemoglobin Oxyhemoglobin Sodium Potassium Chloride Carbon Dioxide BUN 106 H Creatinine Glucose POC Glucose 254 H Uric Acid Calcium Phosphorus Magnesium Iron TIBC AST ALT Total Creatine Kinase CK-MB (CK-2) Troponin T NT-Pro-B Natriuret Pep Total Protein Albumin Triglycerides HDL Cholesterol Folate Urine WBC (Auto) Urine Creatinine Urine Total Protein Vancomycin Trough 06/03/19 06/03/19 06/03/19 12:52 17:25 23:37 WBC RBC Hgb Hct MCV MCH MCHC RDW Plt Count Lymph % (Auto) [place] % (Auto) Eos % (Auto) Lymph # [place] # Eos # Seg Neutrophils % Seg Neuts % (Manual) Lymphocytes % (Manual) Monocytes % (Manual) Eosinophils % (Manual) Nucleated RBC % Seg Neutrophils # Seg Neutrophils # Man Lymphocytes # (Manual) Monocytes # (Manual) Eosinophils # (Manual) PT INR APTT Fibrinogen POC ABG pH ABG pH POC ABG pCO2 POC ABG pO2 ABG pO2 ABG HCO3 ABG O2 Saturation ABG Base Excess ABG Hemoglobin Oxyhemoglobin Sodium Potassium Chloride Carbon Dioxide BUN Creatinine Glucose POC Glucose 274 H 285 H 310 H Uric Acid Calcium Phosphorus Magnesium Iron TIBC AST ALT Total Creatine Kinase CK-MB (CK-2) Troponin T NT-Pro-B Natriuret Pep Total Protein Albumin Triglycerides HDL Cholesterol Folate Urine WBC (Auto) Urine Creatinine Urine Total Protein Vancomycin Trough 06/04/19 06/04/19 06/04/19 04:57 05:03 11:50 WBC RBC Hgb Hct MCV MCH MCHC RDW Plt Count Lymph % (Auto) [place] % (Auto) Eos % (Auto) Lymph # [place] # Eos # Seg Neutrophils % Seg Neuts % (Manual) Lymphocytes % (Manual) Monocytes % (Manual) Eosinophils % (Manual) Nucleated RBC % Seg Neutrophils # Seg Neutrophils # Man Lymphocytes # (Manual) Monocytes # (Manual) Eosinophils # (Manual) PT INR APTT Fibrinogen POC ABG pH 7.488 H ABG pH POC ABG pCO2 POC ABG pO2 ABG pO2 ABG HCO3 ABG O2 Saturation ABG Base Excess ABG Hemoglobin Oxyhemoglobin Sodium Potassium Chloride Carbon Dioxide BUN Creatinine Glucose POC Glucose 275 H 279 H Uric Acid Calcium Phosphorus Magnesium Iron TIBC AST ALT Total Creatine Kinase CK-MB (CK-2) Troponin T NT-Pro-B Natriuret Pep Total Protein Albumin Triglycerides HDL Cholesterol Folate Urine WBC (Auto) Urine Creatinine Urine Total Protein Vancomycin Trough 06/04/19 06/04/19 06/04/19 18:32 22:03 23:55 WBC RBC Hgb Hct MCV MCH MCHC RDW Plt Count Lymph % (Auto) [place] % (Auto) Eos % (Auto) Lymph # [place] # Eos # Seg Neutrophils % Seg Neuts % (Manual) Lymphocytes % (Manual) Monocytes % (Manual) Eosinophils % (Manual) Nucleated RBC % Seg Neutrophils # Seg Neutrophils # Man Lymphocytes # (Manual) Monocytes # (Manual) Eosinophils # (Manual) PT INR APTT Fibrinogen POC ABG pH ABG pH POC ABG pCO2 POC ABG pO2 ABG pO2 ABG HCO3 ABG O2 Saturation ABG Base Excess ABG Hemoglobin Oxyhemoglobin Sodium Potassium Chloride Carbon Dioxide BUN Creatinine Glucose POC Glucose 267 H 307 H 292 H Uric Acid Calcium Phosphorus Magnesium Iron TIBC AST ALT Total Creatine Kinase CK-MB (CK-2) Troponin T NT-Pro-B Natriuret Pep Total Protein Albumin Triglycerides HDL Cholesterol Folate Urine WBC (Auto) Urine Creatinine Urine Total Protein Vancomycin Trough 06/05/19 06/05/19 06/05/19 03:52 06:41 12:29 WBC RBC Hgb Hct MCV MCH MCHC RDW Plt Count Lymph % (Auto) [place] % (Auto) Eos % (Auto) Lymph # [place] # Eos # Seg Neutrophils % Seg Neuts % (Manual) Lymphocytes % (Manual) Monocytes % (Manual) Eosinophils % (Manual) Nucleated RBC % Seg Neutrophils # Seg Neutrophils # Man Lymphocytes # (Manual) Monocytes # (Manual) Eosinophils # (Manual) PT INR APTT Fibrinogen POC ABG pH 7.462 H ABG pH POC ABG pCO2 POC ABG pO2 ABG pO2 ABG HCO3 ABG O2 Saturation ABG Base Excess ABG Hemoglobin Oxyhemoglobin Sodium Potassium Chloride Carbon Dioxide BUN Creatinine Glucose POC Glucose 369 H 265 H Uric Acid Calcium Phosphorus Magnesium Iron TIBC AST ALT Total Creatine Kinase CK-MB (CK-2) Troponin T NT-Pro-B Natriuret Pep Total Protein Albumin Triglycerides HDL Cholesterol Folate Urine WBC (Auto) Urine Creatinine Urine Total Protein Vancomycin Trough 06/05/19 06/05/19 06/05/19 18:20 21:42 23:21 WBC RBC Hgb Hct MCV MCH MCHC RDW Plt Count Lymph % (Auto) [place] % (Auto) Eos % (Auto) Lymph # [place] # Eos # Seg Neutrophils % Seg Neuts % (Manual) Lymphocytes % (Manual) Monocytes % (Manual) Eosinophils % (Manual) Nucleated RBC % Seg Neutrophils # Seg Neutrophils # Man Lymphocytes # (Manual) Monocytes # (Manual) Eosinophils # (Manual) PT INR APTT Fibrinogen POC ABG pH ABG pH POC ABG pCO2 POC ABG pO2 ABG pO2 ABG HCO3 ABG O2 Saturation ABG Base Excess ABG Hemoglobin Oxyhemoglobin Sodium Potassium Chloride Carbon Dioxide BUN Creatinine Glucose POC Glucose 249 H 246 H 274 H Uric Acid Calcium Phosphorus Magnesium Iron TIBC AST ALT Total Creatine Kinase CK-MB (CK-2) Troponin T NT-Pro-B Natriuret Pep Total Protein Albumin Triglycerides HDL Cholesterol Folate Urine WBC (Auto) Urine Creatinine Urine Total Protein Vancomycin Trough 06/06/19 06/06/19 06/06/19 04:00 05:49 11:34 WBC 18.1 H RBC 3.53 L Hgb 9.5 L Hct 30.3 L MCV MCH 27 L MCHC 31 L RDW 19.5 H Plt Count Lymph % (Auto) [place] % (Auto) Eos % (Auto) Lymph # [place] # Eos # Seg Neutrophils % Seg Neuts % (Manual) 87.0 H Lymphocytes % (Manual) 3.0 L Monocytes % (Manual) 8.0 H Eosinophils % (Manual) Nucleated RBC % Seg Neutrophils # Seg Neutrophils # Man 15.7 H Lymphocytes # (Manual) 0.5 L Monocytes # (Manual) 1.4 H Eosinophils # (Manual) PT INR APTT Fibrinogen POC ABG pH ABG pH 7.472 H POC ABG pCO2 POC ABG pO2 ABG pO2 76.4 L ABG HCO3 28.1 H ABG O2 Saturation ABG Base Excess 4.3 H ABG Hemoglobin 12.5 L Oxyhemoglobin 93.8 L Sodium Potassium Chloride Carbon Dioxide BUN Creatinine Glucose POC Glucose 340 H Uric Acid Calcium Phosphorus Magnesium Iron TIBC AST ALT Total Creatine Kinase CK-MB (CK-2) Troponin T NT-Pro-B Natriuret Pep Total Protein Albumin Triglycerides HDL Cholesterol Folate Urine WBC (Auto) Urine Creatinine Urine Total Protein Vancomycin Trough 06/06/19 06/06/19 06/06/19 11:34 12:11 18:10 WBC RBC Hgb Hct MCV MCH MCHC RDW Plt Count Lymph % (Auto) [place] % (Auto) Eos % (Auto) Lymph # [place] # Eos # Seg Neutrophils % Seg Neuts % (Manual) Lymphocytes % (Manual) Monocytes % (Manual) Eosinophils % (Manual) Nucleated RBC % Seg Neutrophils # Seg Neutrophils # Man Lymphocytes # (Manual) Monocytes # (Manual) Eosinophils # (Manual) PT INR APTT Fibrinogen POC ABG pH ABG pH POC ABG pCO2 POC ABG pO2 ABG pO2 ABG HCO3 ABG O2 Saturation ABG Base Excess ABG Hemoglobin Oxyhemoglobin Sodium Potassium Chloride Carbon Dioxide BUN 70 H Creatinine Glucose 310 H POC Glucose 283 H 301 H Uric Acid Calcium 8.3 L Phosphorus 4.60 H Magnesium Iron TIBC AST ALT 75 H Total Creatine Kinase CK-MB (CK-2) Troponin T NT-Pro-B Natriuret Pep Total Protein 5.6 L Albumin 2.9 L Triglycerides HDL Cholesterol Folate Urine WBC (Auto) Urine Creatinine Urine Total Protein Vancomycin Trough 06/06/19 06/06/19 06/07/19 22:21 23:16 04:30 WBC RBC Hgb Hct MCV MCH MCHC RDW Plt Count Lymph % (Auto) [place] % (Auto) Eos % (Auto) Lymph # [place] # Eos # Seg Neutrophils % Seg Neuts % (Manual) Lymphocytes % (Manual) Monocytes % (Manual) Eosinophils % (Manual) Nucleated RBC % Seg Neutrophils # Seg Neutrophils # Man Lymphocytes # (Manual) Monocytes # (Manual) Eosinophils # (Manual) PT INR APTT Fibrinogen POC ABG pH ABG pH 7.480 H POC ABG pCO2 POC ABG pO2 ABG pO2 77.0 L ABG HCO3 27.2 H ABG O2 Saturation ABG Base Excess 3.5 H ABG Hemoglobin 7.1 L Oxyhemoglobin 94.2 L Sodium Potassium Chloride Carbon Dioxide BUN Creatinine Glucose POC Glucose 289 H 343 H Uric Acid Calcium Phosphorus Magnesium Iron TIBC AST ALT Total Creatine Kinase CK-MB (CK-2) Troponin T NT-Pro-B Natriuret Pep Total Protein Albumin Triglycerides HDL Cholesterol Folate Urine WBC (Auto) Urine Creatinine Urine Total Protein Vancomycin Trough 06/07/19 06/07/19 06/07/19 05:15 12:52 18:41 WBC RBC Hgb Hct MCV MCH MCHC RDW Plt Count Lymph % (Auto) [place] % (Auto) Eos % (Auto) Lymph # [place] # Eos # Seg Neutrophils % Seg Neuts % (Manual) Lymphocytes % (Manual) Monocytes % (Manual) Eosinophils % (Manual) Nucleated RBC % Seg Neutrophils # Seg Neutrophils # Man Lymphocytes # (Manual) Monocytes # (Manual) Eosinophils # (Manual) PT INR APTT Fibrinogen POC ABG pH ABG pH POC ABG pCO2 POC ABG pO2 ABG pO2 ABG HCO3 ABG O2 Saturation ABG Base Excess ABG Hemoglobin Oxyhemoglobin Sodium Potassium Chloride Carbon Dioxide BUN Creatinine Glucose POC Glucose 307 H 226 H 187 H Uric Acid Calcium Phosphorus Magnesium Iron TIBC AST ALT Total Creatine Kinase CK-MB (CK-2) Troponin T NT-Pro-B Natriuret Pep Total Protein Albumin Triglycerides HDL Cholesterol Folate Urine WBC (Auto) Urine Creatinine Urine Total Protein Vancomycin Trough 06/07/19 06/07/19 06/08/19 22:54 23:46 04:20 WBC 16.0 H RBC Hgb 10.0 L Hct 32.1 L MCV MCH 27 L MCHC 31 L RDW 19.4 H Plt Count Lymph % (Auto) [place] % (Auto) Eos % (Auto) Lymph # [place] # Eos # Seg Neutrophils % Seg Neuts % (Manual) 87.0 H Lymphocytes % (Manual) 7.0 L Monocytes % (Manual) Eosinophils % (Manual) Nucleated RBC % Seg Neutrophils # Seg Neutrophils # Man 13.9 H Lymphocytes # (Manual) 1.1 L Monocytes # (Manual) 1.0 H Eosinophils # (Manual) PT INR APTT Fibrinogen POC ABG pH ABG pH POC ABG pCO2 POC ABG pO2 ABG pO2 ABG HCO3 ABG O2 Saturation ABG Base Excess ABG Hemoglobin Oxyhemoglobin Sodium Potassium Chloride Carbon Dioxide BUN Creatinine Glucose POC Glucose 199 H 172 H Uric Acid Calcium Phosphorus Magnesium Iron TIBC AST ALT Total Creatine Kinase CK-MB (CK-2) Troponin T NT-Pro-B Natriuret Pep Total Protein Albumin Triglycerides HDL Cholesterol Folate Urine WBC (Auto) Urine Creatinine Urine Total Protein Vancomycin Trough 06/08/19 06/08/19 06/08/19 04:20 05:15 11:31 WBC RBC Hgb Hct MCV MCH MCHC RDW Plt Count Lymph % (Auto) [place] % (Auto) Eos % (Auto) Lymph # [place] # Eos # Seg Neutrophils % Seg Neuts % (Manual) Lymphocytes % (Manual) Monocytes % (Manual) Eosinophils % (Manual) Nucleated RBC % Seg Neutrophils # Seg Neutrophils # Man Lymphocytes # (Manual) Monocytes # (Manual) Eosinophils # (Manual) PT INR APTT Fibrinogen POC ABG pH ABG pH POC ABG pCO2 POC ABG pO2 ABG pO2 ABG HCO3 ABG O2 Saturation ABG Base Excess ABG Hemoglobin Oxyhemoglobin Sodium 146 H D Potassium Chloride Carbon Dioxide BUN 77 H Creatinine Glucose 205 H POC Glucose 209 H 181 H Uric Acid Calcium Phosphorus Magnesium Iron TIBC AST ALT 66 H Total Creatine Kinase CK-MB (CK-2) Troponin T NT-Pro-B Natriuret Pep Total Protein 5.5 L Albumin 2.9 L Triglycerides HDL Cholesterol Folate Urine WBC (Auto) Urine Creatinine Urine Total Protein Vancomycin Trough 06/08/19 06/08/19 06/09/19 17:28 23:24 05:20 WBC RBC Hgb Hct MCV MCH MCHC RDW Plt Count Lymph % (Auto) [place] % (Auto) Eos % (Auto) Lymph # [place] # Eos # Seg Neutrophils % Seg Neuts % (Manual) Lymphocytes % (Manual) Monocytes % (Manual) Eosinophils % (Manual) Nucleated RBC % Seg Neutrophils # Seg Neutrophils # Man Lymphocytes # (Manual) Monocytes # (Manual) Eosinophils # (Manual) PT INR APTT Fibrinogen POC ABG pH ABG pH POC ABG pCO2 POC ABG pO2 ABG pO2 ABG HCO3 ABG O2 Saturation ABG Base Excess ABG Hemoglobin Oxyhemoglobin Sodium Potassium Chloride Carbon Dioxide BUN Creatinine Glucose POC Glucose 215 H 200 H 173 H Uric Acid Calcium Phosphorus Magnesium Iron TIBC AST ALT Total Creatine Kinase CK-MB (CK-2) Troponin T NT-Pro-B Natriuret Pep Total Protein Albumin Triglycerides HDL Cholesterol Folate Urine WBC (Auto) Urine Creatinine Urine Total Protein Vancomycin Trough 06/09/19 06/09/19 06/09/19 12:07 18:32 23:51 WBC RBC Hgb Hct MCV MCH MCHC RDW Plt Count Lymph % (Auto) [place] % (Auto) Eos % (Auto) Lymph # [place] # Eos # Seg Neutrophils % Seg Neuts % (Manual) Lymphocytes % (Manual) Monocytes % (Manual) Eosinophils % (Manual) Nucleated RBC % Seg Neutrophils # Seg Neutrophils # Man Lymphocytes # (Manual) Monocytes # (Manual) Eosinophils # (Manual) PT INR APTT Fibrinogen POC ABG pH ABG pH POC ABG pCO2 POC ABG pO2 ABG pO2 ABG HCO3 ABG O2 Saturation ABG Base Excess ABG Hemoglobin Oxyhemoglobin Sodium Potassium Chloride Carbon Dioxide BUN Creatinine Glucose POC Glucose 117 H 169 H 147 H Uric Acid Calcium Phosphorus Magnesium Iron TIBC AST ALT Total Creatine Kinase CK-MB (CK-2) Troponin T NT-Pro-B Natriuret Pep Total Protein Albumin Triglycerides HDL Cholesterol Folate Urine WBC (Auto) Urine Creatinine Urine Total Protein Vancomycin Trough 06/10/19 06/10/19 06/10/19 05:45 05:45 06:01 WBC 14.6 H RBC Hgb 9.9 L Hct 32.2 L MCV MCH 27 L MCHC 31 L RDW 19.6 H Plt Count Lymph % (Auto) 10.5 L [place] % (Auto) 9.4 H Eos % (Auto) Lymph # [place] # 1.4 H Eos # Seg Neutrophils % 79.9 H Seg Neuts % (Manual) Lymphocytes % (Manual) Monocytes % (Manual) Eosinophils % (Manual) Nucleated RBC % Seg Neutrophils # 11.7 H Seg Neutrophils # Man Lymphocytes # (Manual) Monocytes # (Manual) Eosinophils # (Manual) PT INR APTT Fibrinogen POC ABG pH ABG pH POC ABG pCO2 POC ABG pO2 ABG pO2 ABG HCO3 ABG O2 Saturation ABG Base Excess ABG Hemoglobin Oxyhemoglobin Sodium 150 H Potassium Chloride 108.3 H Carbon Dioxide BUN 49 H Creatinine Glucose 172 H POC Glucose 165 H Uric Acid Calcium Phosphorus Magnesium 1.40 L Iron TIBC AST ALT Total Creatine Kinase CK-MB (CK-2) Troponin T NT-Pro-B Natriuret Pep Total Protein Albumin Triglycerides HDL Cholesterol Folate Urine WBC (Auto) Urine Creatinine Urine Total Protein Vancomycin Trough 06/10/19 06/10/19 06/11/19 12:11 18:30 00:02 WBC RBC Hgb Hct MCV MCH MCHC RDW Plt Count Lymph % (Auto) [place] % (Auto) Eos % (Auto) Lymph # [place] # Eos # Seg Neutrophils % Seg Neuts % (Manual) Lymphocytes % (Manual) Monocytes % (Manual) Eosinophils % (Manual) Nucleated RBC % Seg Neutrophils # Seg Neutrophils # Man Lymphocytes # (Manual) Monocytes # (Manual) Eosinophils # (Manual) PT INR APTT Fibrinogen POC ABG pH ABG pH POC ABG pCO2 POC ABG pO2 ABG pO2 ABG HCO3 ABG O2 Saturation ABG Base Excess ABG Hemoglobin Oxyhemoglobin Sodium Potassium Chloride Carbon Dioxide BUN Creatinine Glucose POC Glucose 150 H 154 H 130 H Uric Acid Calcium Phosphorus Magnesium Iron TIBC AST ALT Total Creatine Kinase CK-MB (CK-2) Troponin T NT-Pro-B Natriuret Pep Total Protein Albumin Triglycerides HDL Cholesterol Folate Urine WBC (Auto) Urine Creatinine Urine Total Protein Vancomycin Trough 06/11/19 06/11/19 06/11/19 05:33 08:34 12:33 WBC RBC Hgb Hct MCV MCH MCHC RDW Plt Count Lymph % (Auto) [place] % (Auto) Eos % (Auto) Lymph # [place] # Eos # Seg Neutrophils % Seg Neuts % (Manual) Lymphocytes % (Manual) Monocytes % (Manual) Eosinophils % (Manual) Nucleated RBC % Seg Neutrophils # Seg Neutrophils # Man Lymphocytes # (Manual) Monocytes # (Manual) Eosinophils # (Manual) PT INR APTT Fibrinogen POC ABG pH ABG pH POC ABG pCO2 POC ABG pO2 ABG pO2 ABG HCO3 ABG O2 Saturation ABG Base Excess ABG Hemoglobin Oxyhemoglobin Sodium 154 H Potassium Chloride 111.6 H Carbon Dioxide BUN 41 H Creatinine Glucose 147 H POC Glucose 183 H 185 H Uric Acid Calcium Phosphorus Magnesium Iron TIBC AST ALT Total Creatine Kinase CK-MB (CK-2) Troponin T NT-Pro-B Natriuret Pep Total Protein Albumin Triglycerides HDL Cholesterol Folate Urine WBC (Auto) Urine Creatinine Urine Total Protein Vancomycin Trough 06/11/19 06/11/19 06/12/19 18:22 23:46 03:21 WBC 11.9 H RBC 3.61 L Hgb 9.9 L Hct 31.7 L MCV MCH 27 L MCHC 31 L RDW 19.3 H Plt Count Lymph % (Auto) 10.6 L [place] % (Auto) 8.6 H Eos % (Auto) Lymph # [place] # 1.0 H Eos # Seg Neutrophils % 80.6 H Seg Neuts % (Manual) Lymphocytes % (Manual) Monocytes % (Manual) Eosinophils % (Manual) Nucleated RBC % Seg Neutrophils # 9.6 H Seg Neutrophils # Man Lymphocytes # (Manual) Monocytes # (Manual) Eosinophils # (Manual) PT INR APTT Fibrinogen POC ABG pH ABG pH POC ABG pCO2 POC ABG pO2 ABG pO2 ABG HCO3 ABG O2 Saturation ABG Base Excess ABG Hemoglobin Oxyhemoglobin Sodium Potassium Chloride Carbon Dioxide BUN Creatinine Glucose POC Glucose 158 H 182 H Uric Acid Calcium Phosphorus Magnesium Iron TIBC AST ALT Total Creatine Kinase CK-MB (CK-2) Troponin T NT-Pro-B Natriuret Pep Total Protein Albumin Triglycerides HDL Cholesterol Folate Urine WBC (Auto) Urine Creatinine Urine Total Protein Vancomycin Trough 06/12/19 06/12/19 06/12/19 03:21 06:04 11:28 WBC RBC Hgb Hct MCV MCH MCHC RDW Plt Count Lymph % (Auto) [place] % (Auto) Eos % (Auto) Lymph # [place] # Eos # Seg Neutrophils % Seg Neuts % (Manual) Lymphocytes % (Manual) Monocytes % (Manual) Eosinophils % (Manual) Nucleated RBC % Seg Neutrophils # Seg Neutrophils # Man Lymphocytes # (Manual) Monocytes # (Manual) Eosinophils # (Manual) PT INR APTT Fibrinogen POC ABG pH ABG pH POC ABG pCO2 POC ABG pO2 ABG pO2 ABG HCO3 ABG O2 Saturation ABG Base Excess ABG Hemoglobin Oxyhemoglobin Sodium 148 H Potassium Chloride 107.3 H Carbon Dioxide BUN 34 H Creatinine 0.7 L Glucose 194 H POC Glucose 133 H 167 H Uric Acid Calcium Phosphorus Magnesium 1.40 L Iron TIBC AST ALT Total Creatine Kinase CK-MB (CK-2) Troponin T NT-Pro-B Natriuret Pep Total Protein Albumin Triglycerides HDL Cholesterol Folate Urine WBC (Auto) Urine Creatinine Urine Total Protein Vancomycin Trough 06/12/19 06/12/19 06/13/19 18:47 21:27 00:04 WBC RBC Hgb Hct MCV MCH MCHC RDW Plt Count Lymph % (Auto) [place] % (Auto) Eos % (Auto) Lymph # [place] # Eos # Seg Neutrophils % Seg Neuts % (Manual) Lymphocytes % (Manual) Monocytes % (Manual) Eosinophils % (Manual) Nucleated RBC % Seg Neutrophils # Seg Neutrophils # Man Lymphocytes # (Manual) Monocytes # (Manual) Eosinophils # (Manual) PT INR APTT Fibrinogen POC ABG pH ABG pH POC ABG pCO2 POC ABG pO2 ABG pO2 ABG HCO3 ABG O2 Saturation ABG Base Excess ABG Hemoglobin Oxyhemoglobin Sodium Potassium Chloride Carbon Dioxide BUN Creatinine Glucose POC Glucose 210 H 263 H 248 H Uric Acid Calcium Phosphorus Magnesium Iron TIBC AST ALT Total Creatine Kinase CK-MB (CK-2) Troponin T NT-Pro-B Natriuret Pep Total Protein Albumin Triglycerides HDL Cholesterol Folate Urine WBC (Auto) Urine Creatinine Urine Total Protein Vancomycin Trough 06/13/19 06/13/19 06/13/19 04:32 05:46 13:30 WBC RBC Hgb Hct MCV MCH MCHC RDW Plt Count Lymph % (Auto) [place] % (Auto) Eos % (Auto) Lymph # [place] # Eos # Seg Neutrophils % Seg Neuts % (Manual) Lymphocytes % (Manual) Monocytes % (Manual) Eosinophils % (Manual) Nucleated RBC % Seg Neutrophils # Seg Neutrophils # Man Lymphocytes # (Manual) Monocytes # (Manual) Eosinophils # (Manual) PT INR APTT Fibrinogen POC ABG pH ABG pH POC ABG pCO2 POC ABG pO2 ABG pO2 ABG HCO3 ABG O2 Saturation ABG Base Excess ABG Hemoglobin Oxyhemoglobin Sodium Potassium Chloride Carbon Dioxide BUN 27 H Creatinine 0.7 L Glucose 253 H POC Glucose 201 H 241 H Uric Acid Calcium Phosphorus Magnesium Iron TIBC AST ALT Total Creatine Kinase CK-MB (CK-2) Troponin T NT-Pro-B Natriuret Pep Total Protein Albumin Triglycerides HDL Cholesterol Folate Urine WBC (Auto) Urine Creatinine Urine Total Protein Vancomycin Trough 06/13/19 06/13/19 06/14/19 17:33 23:49 04:50 WBC RBC Hgb Hct MCV MCH MCHC RDW Plt Count Lymph % (Auto) [place] % (Auto) Eos % (Auto) Lymph # [place] # Eos # Seg Neutrophils % Seg Neuts % (Manual) Lymphocytes % (Manual) Monocytes % (Manual) Eosinophils % (Manual) Nucleated RBC % Seg Neutrophils # Seg Neutrophils # Man Lymphocytes # (Manual) Monocytes # (Manual) Eosinophils # (Manual) PT INR APTT Fibrinogen POC ABG pH ABG pH POC ABG pCO2 POC ABG pO2 ABG pO2 ABG HCO3 ABG O2 Saturation ABG Base Excess ABG Hemoglobin Oxyhemoglobin Sodium Potassium Chloride Carbon Dioxide BUN 37 H Creatinine Glucose 256 H POC Glucose 264 H 236 H Uric Acid Calcium Phosphorus Magnesium Iron TIBC AST ALT Total Creatine Kinase CK-MB (CK-2) Troponin T NT-Pro-B Natriuret Pep Total Protein Albumin Triglycerides HDL Cholesterol Folate Urine WBC (Auto) Urine Creatinine Urine Total Protein Vancomycin Trough 06/14/19 06/14/19 06/14/19 05:26 12:31 18:32 WBC RBC Hgb Hct MCV MCH MCHC RDW Plt Count Lymph % (Auto) [place] % (Auto) Eos % (Auto) Lymph # [place] # Eos # Seg Neutrophils % Seg Neuts % (Manual) Lymphocytes % (Manual) Monocytes % (Manual) Eosinophils % (Manual) Nucleated RBC % Seg Neutrophils # Seg Neutrophils # Man Lymphocytes # (Manual) Monocytes # (Manual) Eosinophils # (Manual) PT INR APTT Fibrinogen POC ABG pH ABG pH POC ABG pCO2 POC ABG pO2 ABG pO2 ABG HCO3 ABG O2 Saturation ABG Base Excess ABG Hemoglobin Oxyhemoglobin Sodium Potassium Chloride Carbon Dioxide BUN Creatinine Glucose POC Glucose 239 H 116 H 247 H Uric Acid Calcium Phosphorus Magnesium Iron TIBC AST ALT Total Creatine Kinase CK-MB (CK-2) Troponin T NT-Pro-B Natriuret Pep Total Protein Albumin Triglycerides HDL Cholesterol Folate Urine WBC (Auto) Urine Creatinine Urine Total Protein Vancomycin Trough 06/14/19 06/15/19 06/15/19 23:57 04:05 05:55 WBC RBC Hgb Hct MCV MCH MCHC RDW Plt Count Lymph % (Auto) [place] % (Auto) Eos % (Auto) Lymph # [place] # Eos # Seg Neutrophils % Seg Neuts % (Manual) Lymphocytes % (Manual) Monocytes % (Manual) Eosinophils % (Manual) Nucleated RBC % Seg Neutrophils # Seg Neutrophils # Man Lymphocytes # (Manual) Monocytes # (Manual) Eosinophils # (Manual) PT INR APTT Fibrinogen POC ABG pH ABG pH POC ABG pCO2 POC ABG pO2 ABG pO2 ABG HCO3 ABG O2 Saturation ABG Base Excess ABG Hemoglobin Oxyhemoglobin Sodium Potassium Chloride Carbon Dioxide BUN 46 H Creatinine 0.7 L Glucose 265 H POC Glucose 206 H 265 H Uric Acid Calcium Phosphorus Magnesium Iron TIBC AST ALT Total Creatine Kinase CK-MB (CK-2) Troponin T NT-Pro-B Natriuret Pep Total Protein Albumin Triglycerides HDL Cholesterol Folate Urine WBC (Auto) Urine Creatinine Urine Total Protein Vancomycin Trough 06/15/19 06/15/19 06/15/19 12:08 18:45 23:41 WBC RBC Hgb Hct MCV MCH MCHC RDW Plt Count Lymph % (Auto) [place] % (Auto) Eos % (Auto) Lymph # [place] # Eos # Seg Neutrophils % Seg Neuts % (Manual) Lymphocytes % (Manual) Monocytes % (Manual) Eosinophils % (Manual) Nucleated RBC % Seg Neutrophils # Seg Neutrophils # Man Lymphocytes # (Manual) Monocytes # (Manual) Eosinophils # (Manual) PT INR APTT Fibrinogen POC ABG pH ABG pH POC ABG pCO2 POC ABG pO2 ABG pO2 ABG HCO3 ABG O2 Saturation ABG Base Excess ABG Hemoglobin Oxyhemoglobin Sodium Potassium Chloride Carbon Dioxide BUN Creatinine Glucose POC Glucose 224 H 177 H 193 H Uric Acid Calcium Phosphorus Magnesium Iron TIBC AST ALT Total Creatine Kinase CK-MB (CK-2) Troponin T NT-Pro-B Natriuret Pep Total Protein Albumin Triglycerides HDL Cholesterol Folate Urine WBC (Auto) Urine Creatinine Urine Total Protein Vancomycin Trough 06/16/19 06/16/19 06/16/19 05:00 05:00 05:40 WBC 11.9 H RBC 3.24 L Hgb 9.0 L Hct 29.0 L MCV MCH MCHC 31 L RDW 18.6 H Plt Count 111 L Lymph % (Auto) [place] % (Auto) Eos % (Auto) Lymph # [place] # Eos # Seg Neutrophils % Seg Neuts % (Manual) 92.0 H Lymphocytes % (Manual) 2.0 L Monocytes % (Manual) Eosinophils % (Manual) Nucleated RBC % Seg Neutrophils # Seg Neutrophils # Man 10.9 H Lymphocytes # (Manual) 0.2 L Monocytes # (Manual) Eosinophils # (Manual) PT INR APTT Fibrinogen POC ABG pH ABG pH POC ABG pCO2 POC ABG pO2 ABG pO2 ABG HCO3 ABG O2 Saturation ABG Base Excess ABG Hemoglobin Oxyhemoglobin Sodium Potassium Chloride Carbon Dioxide 33 H BUN 49 H Creatinine 0.7 L Glucose 264 H POC Glucose 247 H Uric Acid Calcium Phosphorus Magnesium Iron TIBC AST ALT Total Creatine Kinase CK-MB (CK-2) Troponin T NT-Pro-B Natriuret Pep Total Protein Albumin Triglycerides HDL Cholesterol Folate Urine WBC (Auto) Urine Creatinine Urine Total Protein Vancomycin Trough 06/16/19 06/16/19 06/16/19 12:03 17:11 18:11 WBC RBC Hgb Hct MCV MCH MCHC RDW Plt Count Lymph % (Auto) [place] % (Auto) Eos % (Auto) Lymph # [place] # Eos # Seg Neutrophils % Seg Neuts % (Manual) Lymphocytes % (Manual) Monocytes % (Manual) Eosinophils % (Manual) Nucleated RBC % Seg Neutrophils # Seg Neutrophils # Man Lymphocytes # (Manual) Monocytes # (Manual) Eosinophils # (Manual) PT INR APTT Fibrinogen POC ABG pH ABG pH 7.289 L POC ABG pCO2 POC ABG pO2 ABG pO2 399.3 H ABG HCO3 30.1 H ABG O2 Saturation 99.6 H ABG Base Excess ABG Hemoglobin 8.6 L Oxyhemoglobin Sodium Potassium Chloride Carbon Dioxide BUN Creatinine Glucose POC Glucose 252 H 254 H Uric Acid Calcium Phosphorus Magnesium Iron TIBC AST ALT Total Creatine Kinase CK-MB (CK-2) Troponin T NT-Pro-B Natriuret Pep Total Protein Albumin Triglycerides HDL Cholesterol Folate Urine WBC (Auto) Urine Creatinine Urine Total Protein Vancomycin Trough 06/16/19 06/17/19 06/17/19 23:16 05:30 05:53 WBC RBC Hgb Hct MCV MCH MCHC RDW Plt Count Lymph % (Auto) [place] % (Auto) Eos % (Auto) Lymph # [place] # Eos # Seg Neutrophils % Seg Neuts % (Manual) Lymphocytes % (Manual) Monocytes % (Manual) Eosinophils % (Manual) Nucleated RBC % Seg Neutrophils # Seg Neutrophils # Man Lymphocytes # (Manual) Monocytes # (Manual) Eosinophils # (Manual) PT INR APTT Fibrinogen POC ABG pH ABG pH POC ABG pCO2 POC ABG pO2 ABG pO2 ABG HCO3 ABG O2 Saturation ABG Base Excess ABG Hemoglobin Oxyhemoglobin Sodium 147 H Potassium Chloride Carbon Dioxide 32 H BUN 60 H Creatinine Glucose 205 H POC Glucose 238 H 211 H Uric Acid Calcium Phosphorus Magnesium Iron TIBC AST ALT Total Creatine Kinase CK-MB (CK-2) Troponin T NT-Pro-B Natriuret Pep Total Protein Albumin Triglycerides HDL Cholesterol Folate Urine WBC (Auto) Urine Creatinine Urine Total Protein Vancomycin Trough 06/17/19 06/17/19 06/17/19 09:50 12:27 12:45 WBC RBC 2.79 L Hgb 8.2 L Hct 24.6 L MCV MCH MCHC RDW 18.5 H Plt Count 95 L Lymph % (Auto) [place] % (Auto) Eos % (Auto) Lymph # [place] # Eos # Seg Neutrophils % Seg Neuts % (Manual) Lymphocytes % (Manual) Monocytes % (Manual) Eosinophils % (Manual) Nucleated RBC % Seg Neutrophils # Seg Neutrophils # Man Lymphocytes # (Manual) Monocytes # (Manual) Eosinophils # (Manual) PT INR APTT Fibrinogen 194 L POC ABG pH ABG pH POC ABG pCO2 POC ABG pO2 ABG pO2 ABG HCO3 ABG O2 Saturation ABG Base Excess ABG Hemoglobin Oxyhemoglobin Sodium Potassium Chloride Carbon Dioxide BUN Creatinine Glucose POC Glucose 224 H Uric Acid Calcium Phosphorus Magnesium Iron TIBC AST ALT Total Creatine Kinase CK-MB (CK-2) Troponin T NT-Pro-B Natriuret Pep Total Protein Albumin Triglycerides HDL Cholesterol Folate Urine WBC (Auto) Urine Creatinine Urine Total Protein Vancomycin Trough 06/17/19 06/17/19 06/17/19 18:41 22:00 23:23 WBC RBC Hgb Hct MCV MCH MCHC RDW Plt Count Lymph % (Auto) [place] % (Auto) Eos % (Auto) Lymph # [place] # Eos # Seg Neutrophils % Seg Neuts % (Manual) Lymphocytes % (Manual) Monocytes % (Manual) Eosinophils % (Manual) Nucleated RBC % Seg Neutrophils # Seg Neutrophils # Man Lymphocytes # (Manual) Monocytes # (Manual) Eosinophils # (Manual) PT INR APTT Fibrinogen POC ABG pH ABG pH POC ABG pCO2 POC ABG pO2 ABG pO2 ABG HCO3 ABG O2 Saturation ABG Base Excess ABG Hemoglobin Oxyhemoglobin Sodium Potassium Chloride Carbon Dioxide BUN Creatinine Glucose POC Glucose 198 H 166 H 171 H Uric Acid Calcium Phosphorus Magnesium Iron TIBC AST ALT Total Creatine Kinase CK-MB (CK-2) Troponin T NT-Pro-B Natriuret Pep Total Protein Albumin Triglycerides HDL Cholesterol Folate Urine WBC (Auto) Urine Creatinine Urine Total Protein Vancomycin Trough 06/17/19 06/18/19 06/18/19 Unknown 03:50 04:25 WBC RBC Hgb Hct MCV MCH MCHC RDW Plt Count Lymph % (Auto) [place] % (Auto) Eos % (Auto) Lymph # [place] # Eos # Seg Neutrophils % Seg Neuts % (Manual) Lymphocytes % (Manual) Monocytes % (Manual) Eosinophils % (Manual) Nucleated RBC % Seg Neutrophils # Seg Neutrophils # Man Lymphocytes # (Manual) Monocytes # (Manual) Eosinophils # (Manual) PT INR APTT Fibrinogen POC ABG pH ABG pH 7.564 H 7.499 H POC ABG pCO2 POC ABG pO2 ABG pO2 238.6 H 130.8 H ABG HCO3 33.6 H 32.5 H ABG O2 Saturation 99.4 H ABG Base Excess 10.6 H 8.5 H ABG Hemoglobin 7.9 L 8.8 L Oxyhemoglobin Sodium 151 H Potassium 3.4 L Chloride Carbon Dioxide BUN 66 H Creatinine Glucose 189 H POC Glucose Uric Acid Calcium Phosphorus Magnesium Iron TIBC AST ALT Total Creatine Kinase CK-MB (CK-2) Troponin T NT-Pro-B Natriuret Pep Total Protein Albumin Triglycerides HDL Cholesterol Folate Urine WBC (Auto) Urine Creatinine Urine Total Protein Vancomycin Trough 06/18/19 06/18/19 06/18/19 05:25 05:27 11:50 WBC RBC 2.61 L Hgb 7.4 L Hct 22.9 L MCV MCH MCHC RDW 19.9 H Plt Count 81 L Lymph % (Auto) 12.9 L [place] % (Auto) 7.7 H Eos % (Auto) Lymph # 1.1 L [place] # Eos # Seg Neutrophils % 77.4 H Seg Neuts % (Manual) Lymphocytes % (Manual) Monocytes % (Manual) Eosinophils % (Manual) Nucleated RBC % Seg Neutrophils # Seg Neutrophils # Man Lymphocytes # (Manual) Monocytes # (Manual) Eosinophils # (Manual) PT INR APTT Fibrinogen POC ABG pH ABG pH POC ABG pCO2 POC ABG pO2 ABG pO2 ABG HCO3 ABG O2 Saturation ABG Base Excess ABG Hemoglobin Oxyhemoglobin Sodium Potassium Chloride Carbon Dioxide BUN Creatinine Glucose POC Glucose 186 H 263 H Uric Acid Calcium Phosphorus Magnesium Iron TIBC AST ALT Total Creatine Kinase CK-MB (CK-2) Troponin T NT-Pro-B Natriuret Pep Total Protein Albumin Triglycerides HDL Cholesterol Folate Urine WBC (Auto) Urine Creatinine Urine Total Protein Vancomycin Trough 06/18/19 06/18/19 06/18/19 18:35 21:31 23:21 WBC RBC Hgb Hct MCV MCH MCHC RDW Plt Count Lymph % (Auto) [place] % (Auto) Eos % (Auto) Lymph # [place] # Eos # Seg Neutrophils % Seg Neuts % (Manual) Lymphocytes % (Manual) Monocytes % (Manual) Eosinophils % (Manual) Nucleated RBC % Seg Neutrophils # Seg Neutrophils # Man Lymphocytes # (Manual) Monocytes # (Manual) Eosinophils # (Manual) PT INR APTT Fibrinogen POC ABG pH ABG pH POC ABG pCO2 POC ABG pO2 ABG pO2 ABG HCO3 ABG O2 Saturation ABG Base Excess ABG Hemoglobin Oxyhemoglobin Sodium Potassium Chloride Carbon Dioxide BUN Creatinine Glucose POC Glucose 154 H 186 H 202 H Uric Acid Calcium Phosphorus Magnesium Iron TIBC AST ALT Total Creatine Kinase CK-MB (CK-2) Troponin T NT-Pro-B Natriuret Pep Total Protein Albumin Triglycerides HDL Cholesterol Folate Urine WBC (Auto) Urine Creatinine Urine Total Protein Vancomycin Trough 06/19/19 06/19/19 06/19/19 03:18 04:30 04:30 WBC RBC 2.65 L Hgb 7.5 L Hct 23.1 L MCV MCH MCHC RDW 19.4 H Plt Count 74 L Lymph % (Auto) 8.8 L [place] % (Auto) 9.4 H Eos % (Auto) 4.7 H Lymph # 0.6 L [place] # Eos # Seg Neutrophils % 76.6 H Seg Neuts % (Manual) Lymphocytes % (Manual) Monocytes % (Manual) Eosinophils % (Manual) Nucleated RBC % Seg Neutrophils # Seg Neutrophils # Man Lymphocytes # (Manual) Monocytes # (Manual) Eosinophils # (Manual) PT INR APTT Fibrinogen POC ABG pH ABG pH 7.452 H POC ABG pCO2 POC ABG pO2 ABG pO2 105.5 H ABG HCO3 32.3 H ABG O2 Saturation ABG Base Excess 7.6 H ABG Hemoglobin 6.9 L Oxyhemoglobin Sodium 150 H Potassium 3.3 L Chloride Carbon Dioxide 31 H BUN 56 H Creatinine Glucose 197 H POC Glucose Uric Acid Calcium Phosphorus Magnesium Iron TIBC AST ALT Total Creatine Kinase CK-MB (CK-2) Troponin T NT-Pro-B Natriuret Pep Total Protein Albumin Triglycerides 210 H HDL Cholesterol Folate Urine WBC (Auto) Urine Creatinine Urine Total Protein Vancomycin Trough 06/19/19 06/19/19 06/19/19 05:24 12:18 18:55 WBC RBC Hgb Hct MCV MCH MCHC RDW Plt Count Lymph % (Auto) [place] % (Auto) Eos % (Auto) Lymph # [place] # Eos # Seg Neutrophils % Seg Neuts % (Manual) Lymphocytes % (Manual) Monocytes % (Manual) Eosinophils % (Manual) Nucleated RBC % Seg Neutrophils # Seg Neutrophils # Man Lymphocytes # (Manual) Monocytes # (Manual) Eosinophils # (Manual) PT INR APTT Fibrinogen POC ABG pH ABG pH POC ABG pCO2 POC ABG pO2 ABG pO2 ABG HCO3 ABG O2 Saturation ABG Base Excess ABG Hemoglobin Oxyhemoglobin Sodium Potassium Chloride Carbon Dioxide BUN Creatinine Glucose POC Glucose 176 H 260 H 192 H Uric Acid Calcium Phosphorus Magnesium Iron TIBC AST ALT Total Creatine Kinase CK-MB (CK-2) Troponin T NT-Pro-B Natriuret Pep Total Protein Albumin Triglycerides HDL Cholesterol Folate Urine WBC (Auto) Urine Creatinine Urine Total Protein Vancomycin Trough 06/19/19 06/19/19 06/20/19 22:57 23:46 04:40 WBC RBC 2.79 L Hgb 7.9 L Hct 24.3 L MCV MCH MCHC RDW 19.6 H Plt Count 92 L Lymph % (Auto) 9.2 L [place] % (Auto) 12.0 H Eos % (Auto) 5.2 H Lymph # 0.9 L [place] # 1.2 H Eos # 0.5 H Seg Neutrophils % 73.3 H Seg Neuts % (Manual) Lymphocytes % (Manual) Monocytes % (Manual) Eosinophils % (Manual) Nucleated RBC % Seg Neutrophils # Seg Neutrophils # Man Lymphocytes # (Manual) Monocytes # (Manual) Eosinophils # (Manual) PT INR APTT Fibrinogen POC ABG pH ABG pH POC ABG pCO2 POC ABG pO2 ABG pO2 ABG HCO3 ABG O2 Saturation ABG Base Excess ABG Hemoglobin Oxyhemoglobin Sodium Potassium Chloride Carbon Dioxide BUN Creatinine Glucose POC Glucose 145 H 216 H Uric Acid Calcium Phosphorus Magnesium Iron TIBC AST ALT Total Creatine Kinase CK-MB (CK-2) Troponin T NT-Pro-B Natriuret Pep Total Protein Albumin Triglycerides HDL Cholesterol Folate Urine WBC (Auto) Urine Creatinine Urine Total Protein Vancomycin Trough 06/20/19 06/20/19 06/20/19 04:40 05:40 05:54 WBC RBC Hgb Hct MCV MCH MCHC RDW Plt Count Lymph % (Auto) [place] % (Auto) Eos % (Auto) Lymph # [place] # Eos # Seg Neutrophils % Seg Neuts % (Manual) Lymphocytes % (Manual) Monocytes % (Manual) Eosinophils % (Manual) Nucleated RBC % Seg Neutrophils # Seg Neutrophils # Man Lymphocytes # (Manual) Monocytes # (Manual) Eosinophils # (Manual) PT INR APTT Fibrinogen POC ABG pH ABG pH 7.455 H POC ABG pCO2 POC ABG pO2 ABG pO2 60.9 L ABG HCO3 30.3 H ABG O2 Saturation 92.3 L ABG Base Excess 5.8 H ABG Hemoglobin 8.2 L Oxyhemoglobin 90.1 L Sodium Potassium 3.5 L Chloride Carbon Dioxide BUN 59 H Creatinine Glucose 200 H POC Glucose 190 H Uric Acid Calcium Phosphorus Magnesium 1.60 L Iron TIBC AST ALT Total Creatine Kinase CK-MB (CK-2) Troponin T NT-Pro-B Natriuret Pep Total Protein Albumin Triglycerides HDL Cholesterol Folate Urine WBC (Auto) Urine Creatinine Urine Total Protein Vancomycin Trough 06/20/19 06/20/19 06/20/19 09:12 09:12 12:24 WBC RBC Hgb Hct MCV MCH MCHC RDW Plt Count Lymph % (Auto) [place] % (Auto) Eos % (Auto) Lymph # [place] # Eos # Seg Neutrophils % Seg Neuts % (Manual) Lymphocytes % (Manual) Monocytes % (Manual) Eosinophils % (Manual) Nucleated RBC % Seg Neutrophils # Seg Neutrophils # Man Lymphocytes # (Manual) Monocytes # (Manual) Eosinophils # (Manual) PT INR APTT Fibrinogen POC ABG pH ABG pH POC ABG pCO2 POC ABG pO2 ABG pO2 ABG HCO3 ABG O2 Saturation ABG Base Excess ABG Hemoglobin Oxyhemoglobin Sodium Potassium Chloride Carbon Dioxide BUN Creatinine Glucose POC Glucose 225 H Uric Acid Calcium Phosphorus Magnesium Iron 45 L TIBC 110 L AST ALT Total Creatine Kinase CK-MB (CK-2) Troponin T NT-Pro-B Natriuret Pep Total Protein Albumin Triglycerides HDL Cholesterol Folate 7.01 L Urine WBC (Auto) Urine Creatinine Urine Total Protein Vancomycin Trough 06/20/19 06/20/19 06/20/19 17:42 21:55 23:24 WBC RBC Hgb Hct MCV MCH MCHC RDW Plt Count Lymph % (Auto) [place] % (Auto) Eos % (Auto) Lymph # [place] # Eos # Seg Neutrophils % Seg Neuts % (Manual) Lymphocytes % (Manual) Monocytes % (Manual) Eosinophils % (Manual) Nucleated RBC % Seg Neutrophils # Seg Neutrophils # Man Lymphocytes # (Manual) Monocytes # (Manual) Eosinophils # (Manual) PT INR APTT Fibrinogen POC ABG pH ABG pH POC ABG pCO2 POC ABG pO2 ABG pO2 ABG HCO3 ABG O2 Saturation ABG Base Excess ABG Hemoglobin Oxyhemoglobin Sodium Potassium Chloride Carbon Dioxide BUN Creatinine Glucose POC Glucose 255 H 218 H 215 H Uric Acid Calcium Phosphorus Magnesium Iron TIBC AST ALT Total Creatine Kinase CK-MB (CK-2) Troponin T NT-Pro-B Natriuret Pep Total Protein Albumin Triglycerides HDL Cholesterol Folate Urine WBC (Auto) Urine Creatinine Urine Total Protein Vancomycin Trough 06/21/19 06/21/19 06/21/19 03:32 03:40 05:20 WBC 12.8 H RBC 3.03 L Hgb 8.5 L Hct 26.2 L MCV MCH MCHC RDW 19.4 H Plt Count 131 L Lymph % (Auto) [place] % (Auto) Eos % (Auto) Lymph # [place] # Eos # Seg Neutrophils % Seg Neuts % (Manual) 78.0 H Lymphocytes % (Manual) 5.0 L Monocytes % (Manual) 11.0 H Eosinophils % (Manual) Nucleated RBC % Seg Neutrophils # Seg Neutrophils # Man 10.0 H Lymphocytes # (Manual) 0.6 L Monocytes # (Manual) 1.4 H Eosinophils # (Manual) 0.5 H PT INR APTT Fibrinogen POC ABG pH ABG pH 7.476 H POC ABG pCO2 POC ABG pO2 ABG pO2 162.0 H ABG HCO3 26.8 H ABG O2 Saturation 99.1 H ABG Base Excess 3.1 H ABG Hemoglobin 8.6 L Oxyhemoglobin Sodium Potassium Chloride Carbon Dioxide BUN Creatinine Glucose POC Glucose 202 H Uric Acid Calcium Phosphorus Magnesium Iron TIBC AST ALT Total Creatine Kinase CK-MB (CK-2) Troponin T NT-Pro-B Natriuret Pep Total Protein Albumin Triglycerides HDL Cholesterol Folate Urine WBC (Auto) Urine Creatinine Urine Total Protein Vancomycin Trough 06/21/19 06/21/19 06/21/19 05:20 12:30 18:18 WBC RBC Hgb Hct MCV MCH MCHC RDW Plt Count Lymph % (Auto) [place] % (Auto) Eos % (Auto) Lymph # [place] # Eos # Seg Neutrophils % Seg Neuts % (Manual) Lymphocytes % (Manual) Monocytes % (Manual) Eosinophils % (Manual) Nucleated RBC % Seg Neutrophils # Seg Neutrophils # Man Lymphocytes # (Manual) Monocytes # (Manual) Eosinophils # (Manual) PT INR APTT Fibrinogen POC ABG pH ABG pH POC ABG pCO2 POC ABG pO2 ABG pO2 ABG HCO3 ABG O2 Saturation ABG Base Excess ABG Hemoglobin Oxyhemoglobin Sodium Potassium Chloride 97.7 L Carbon Dioxide BUN 69 H Creatinine Glucose 239 H POC Glucose 176 H 187 H Uric Acid Calcium Phosphorus Magnesium 2.40 H Iron TIBC AST ALT Total Creatine Kinase CK-MB (CK-2) Troponin T NT-Pro-B Natriuret Pep Total Protein Albumin Triglycerides HDL Cholesterol Folate Urine WBC (Auto) Urine Creatinine Urine Total Protein Vancomycin Trough 06/22/19 06/22/19 06/22/19 04:11 05:30 05:30 WBC 12.6 H RBC 3.10 L Hgb 8.7 L Hct 27.0 L MCV MCH MCHC RDW 19.8 H Plt Count Lymph % (Auto) [place] % (Auto) Eos % (Auto) Lymph # [place] # Eos # Seg Neutrophils % Seg Neuts % (Manual) Lymphocytes % (Manual) Monocytes % (Manual) Eosinophils % (Manual) Nucleated RBC % Seg Neutrophils # Seg Neutrophils # Man Lymphocytes # (Manual) Monocytes # (Manual) Eosinophils # (Manual) PT INR APTT Fibrinogen POC ABG pH ABG pH POC ABG pCO2 POC ABG pO2 ABG pO2 ABG HCO3 27.7 H ABG O2 Saturation ABG Base Excess 3.3 H ABG Hemoglobin 8.5 L Oxyhemoglobin 94.9 L Sodium Potassium Chloride Carbon Dioxide BUN 66 H Creatinine Glucose 103 H POC Glucose Uric Acid Calcium Phosphorus Magnesium Iron TIBC AST ALT Total Creatine Kinase CK-MB (CK-2) Troponin T NT-Pro-B Natriuret Pep Total Protein Albumin Triglycerides HDL Cholesterol Folate Urine WBC (Auto) Urine Creatinine Urine Total Protein Vancomycin Trough
[2019-06-22 08:44] LABS: Anisocytosis Few; Platelet Estimate Consistent w Auto; Tear Drop Cells Rare
[2019-06-22] MEDS: INSULIN LISPRO 100 UNIT/ML SUB-Q SCH ×3 (08:56→18:43)
[2019-06-22] MEDS ORDERED: methylPREDNISolone Sod Succinate 40 MG/1 ML INJ IV SCH (10:00)
[2019-06-22] MEDS ORDERED: BUPIVACAINE/PF (0.5%) 5 MG/1 ML 30 ML VIAL INFILTRATI ONE (10:23)
[2019-06-22] MEDS ORDERED: LIDOCAINE (1%) 10 MG/1 ML VIAL 20 ML MDV ONE (10:23)
--- NOTE | 2019-06-22 10:52 | Progress Note ---
Assessment and Plan Assessment: * Acute kidney injury attributed to vancomycin toxicity - recovered, previously on hemodialysis * Hypernatremia * Acute hypoxic/hypercapneic respiratory failure * Hypertension * Hypokalemia * Morbid obesity Plan: * Renal function has recovered. No indication for hemodialysis * diuresis prn * stop ARB, deshawn with h/o of dion and atn * Will arrange removal of permcath upcoming week * Vent management per pulmonary medicine - note plans for trach/PEG * Dose medications for renal function * restart minoxidil prn * Avoid nephrotoxins Subjective Date of service: 06/22/19 Principal diagnosis: LOW PLT Interval history: resting in bed today Objective - Exam Narrative Exam: General: No acute distress/ intubated and sedated HEENT: ET tube in place Neck: Supple Chest:coarse mechanical breath sounds, PRVC with FiO2 50% Heart: Regular rate and rhythm Abdomen: Soft nontender Extremity: no edema Psych: sedated Derm: No petechial rash - Vital Signs Vital signs: Vital Signs - 12hr 06/21/19 06/21/19 06/21/19 23:00 23:02 23:15 Temperature Pulse Rate 85 83 87 Pulse Rate [ From Monitor] Respiratory 15 19 20 Rate Blood Pressure 103/45 103/45 102/41 O2 Sat by Pulse 97 98 98 Oximetry 06/21/19 06/21/19 06/21/19 23:16 23:30 23:35 Temperature 100 F H Pulse Rate 91 H 94 H Pulse Rate [ 86 From Monitor] Respiratory 19 24 Rate Blood Pressure 99/38 O2 Sat by Pulse 97 98 Oximetry 06/21/19 06/22/19 06/22/19 23:45 00:00 00:15 Temperature Pulse Rate 100 H 96 H 92 H Pulse Rate [ From Monitor] Respiratory 22 22 22 Rate Blood Pressure 130/67 120/49 99/52 O2 Sat by Pulse 97 98 98 Oximetry 06/22/19 06/22/19 06/22/19 00:30 00:45 01:00 Temperature Pulse Rate 91 H 92 H 93 H Pulse Rate [ From Monitor] Respiratory 18 18 21 Rate Blood Pressure 110/47 102/43 125/73 O2 Sat by Pulse 96 96 98 Oximetry 06/22/19 06/22/19 06/22/19 01:15 01:30 01:35 Temperature Pulse Rate 91 H 94 H 94 H Pulse Rate [ 86 From Monitor] Respiratory 17 19 24 Rate Blood Pressure 126/69 116/64 O2 Sat by Pulse 97 97 98 Oximetry 06/22/19 06/22/19 06/22/19 01:45 02:00 02:15 Temperature Pulse Rate 86 88 97 H Pulse Rate [ From Monitor] Respiratory 17 20 26 H Rate Blood Pressure 104/49 100/45 130/71 O2 Sat by Pulse 98 99 97 Oximetry 06/22/19 06/22/19 06/22/19 02:30 02:45 03:00 Temperature Pulse Rate 93 H 95 H 95 H Pulse Rate [ From Monitor] Respiratory 16 20 19 Rate Blood Pressure 139/78 143/78 142/76 O2 Sat by Pulse 100 97 98 Oximetry 06/22/19 06/22/19 06/22/19 03:15 03:23 03:30 Temperature 99.3 F Pulse Rate 94 H 88 Pulse Rate [ From Monitor] Respiratory 23 16 Rate Blood Pressure 136/81 133/68 O2 Sat by Pulse 98 99 Oximetry 06/22/19 06/22/19 06/22/19 03:45 04:00 04:15 Temperature Pulse Rate 89 91 H 98 H Pulse Rate [ From Monitor] Respiratory 18 18 14 Rate Blood Pressure 126/64 117/53 136/81 O2 Sat by Pulse 98 Oximetry 06/22/19 06/22/19 06/22/19 04:30 04:46 05:00 Temperature Pulse Rate 96 H 93 H 92 H Pulse Rate [ 94 H From Monitor] Respiratory 17 21 20 Rate Blood Pressure 143/82 136/81 145/80 O2 Sat by Pulse 98 98 97 Oximetry 06/22/19 06/22/19 06/22/19 05:15 05:30 05:45 Temperature Pulse Rate 94 H 89 83 Pulse Rate [ From Monitor] Respiratory 20 18 18 Rate Blood Pressure 153/84 156/92 176/71 O2 Sat by Pulse 96 98 Oximetry 06/22/19 06/22/19 06/22/19 06:00 06:15 06:30 Temperature Pulse Rate 83 88 88 Pulse Rate [ From Monitor] Respiratory 17 19 20 Rate Blood Pressure 174/76 175/84 146/59 O2 Sat by Pulse 94 100 98 Oximetry 06/22/19 06/22/19 06/22/19 06:46 07:00 07:15 Temperature Pulse Rate 87 88 95 H Pulse Rate [ From Monitor] Respiratory 19 18 16 Rate Blood Pressure 133/48 134/49 184/97 O2 Sat by Pulse 95 94 97 Oximetry 06/22/19 06/22/19 06/22/19 07:30 07:45 08:00 Temperature 98.9 F Pulse Rate 95 H 85 96 H Pulse Rate [ 94 H From Monitor] Respiratory 17 19 20 Rate Blood Pressure 191/96 191/83 177/101 O2 Sat by Pulse 97 99 99 Oximetry 06/22/19 06/22/19 06/22/19 08:15 08:30 08:44 Temperature Pulse Rate 90 85 95 H Pulse Rate [ From Monitor] Respiratory 30 H 20 1 L Rate Blood Pressure 185/89 170/78 173/71 O2 Sat by Pulse 98 99 98 Oximetry 06/22/19 06/22/19 06/22/19 08:45 09:00 09:16 Temperature Pulse Rate 96 H 95 H 100 H Pulse Rate [ From Monitor] Respiratory 20 19 20 Rate Blood Pressure 165/89 150/70 154/71 O2 Sat by Pulse 95 96 95 Oximetry 06/22/19 06/22/19 09:30 09:45 Temperature Pulse Rate 99 H 100 H Pulse Rate [ From Monitor] Respiratory 16 18 Rate Blood Pressure 154/79 141/66 O2 Sat by Pulse 95 94 Oximetry - Lab 06/22/19 05:30 06/22/19 05:30 Most recent lab results ABG pH 7.444 pH Units (7.350-7.450) 06/22/19 04:11 ABG pCO2 41.4 mm Hg 06/22/19 04:11 ABG pO2 88.1 mm Hg (80.0-90.0) 06/22/19 04:11 ABG HCO3 27.7 mmol/L (20.0-26.0) H 06/22/19 04:11 ABG O2 Saturation 97.2 % (95.0-99.0) 06/22/19 04:11 Calcium 9.1 mg/dL (8.4-10.2) 06/22/19 05:30 Phosphorus 3.70 mg/dL (2.5-4.5) 06/10/19 05:45 Magnesium 2.10 mg/dL (1.7-2.3) 06/22/19 05:30 Urine Creatinine 292.8 mg/dL (0.1-20.0) H 05/07/19 22:40 Urine Sodium 11 mmol/L 05/07/19 22:40 Urine Total Protein 269 mg/dL (5-11.8) H 05/07/19 22:40 Medications & Allergies - Medications Allergies/Adverse Reactions: Allergies No Known Allergies Allergy (Verified 05/01/19 20:27) Home Medications: Home Medications Medication Instructions Recorded Confirmed Last Taken Type No Known Home Medications [No 05/03/19 05/03/19 Unknown History Reported Home Medications] Active Medications: Generic Name Dose Route Start Last Admin Trade Name Freq PRN Reason Stop Dose Admin Acetaminophen 650 mg 06/17/19 10:00 06/17/19 21:20 Tylenol PO 650 mg Q6H PRN Administration FOR TEMP >/=100.4 Lipase/Protease/Amylase 1 each 05/14/19 15:01 Pancreaze 10,500 Unit FEEDTUBE PRN PRN For Clogged Feeding Tube Dextrose 50 gm 05/01/19 20:24 D50w (25gm) Vial IV Q30MIN PRN Hypoglycemia Protocol Famotidine 20 mg 06/17/19 10:00 06/21/19 21:50 Pepcid PO 20 mg BID VICKEY Administration Ferrous Sulfate 308 mg 06/18/19 12:00 06/21/19 10:34 Ferrous Sulfate PO 308 mg QDAY VICKEY Administration Hydrophilic Ointment 1 applic 06/16/19 17:34 Vaseline Lip Therapy TP Q2HR PRN Dry Lips Propofol 1,000 mg in 100 mls @ 7.716 mls/hr 06/16/19 21:00 06/22/19 05:01 Diprivan 10 Mg/Ml IV 5 mcg/kg/min TITR VICKEY 7.716 mls/hr Administration Protocol 5 MCG/KG/MIN Fentanyl Citrate 2,000 mcg in 100 mls @ 12.86 mls/hr 06/17/19 14:00 Fentanyl Drip Premix IV TITR VICKEY Protocol 1 MCG/KG/HR Insulin Human Lispro 0 unit 06/01/19 14:00 06/22/19 08:56 Humalog SUB-Q Not Given Q6HR VICKEY Protocol Labetalol HCl 10 mg 06/11/19 22:48 06/19/19 10:23 Labetalol IV 10 mg Q4H PRN Administration BP >170/105; hold for HR <60 Methylprednisolone Sodium Succinate 20 mg 06/22/19 10:00 Solu-Medrol IV Q24HR VICKEY Multi-Ingred Cream/Lotion/Oil/Oint 1 applic 06/16/19 18:00 Artificial Tears Ophth Oint OU Q4HR PRN Dry Eye(s) Potassium Chloride 40 meq 06/19/19 10:00 06/21/19 10:33 Potassium Chloride FEEDTUBE 40 meq QDAY VICKEY Administration Simple Syrup 15 ml 05/14/19 15:01 Simple Syrup FEEDTUBE PRN PRN Hypoglycemia Simple Syrup 30 ml 05/14/19 15:01 Simple Syrup FEEDTUBE PRN PRN Hypoglycemia Sodium Bicarbonate 325 mg 05/14/19 15:01 Sodium Bicarbonate FEEDTUBE PRN PRN For Clogged Feeding Tube
[2019-06-22] MEDS: methylPREDNISolone Sod Succinate 40 MG/1 ML INJ IV SCH (11:25)
[2019-06-22] MEDS: FERROUS SULFATE 308 MG (62mg Elemental Iron) / 7 ML ELIXIR PO SCH (11:39)
[2019-06-22] MEDS: FAMOTIDINE 20 MG TAB PO SCH ×2 (11:39→23:04)
[2019-06-22] MEDS: POTASSIUM CHLORIDE 20 MEQ PACKET FEEDTUBE SCH (11:39)
--- NOTE | 2019-06-22 12:04 | Anesthesia Day of Surgery ---
Anesthesia Day of Surgery - Day of Surgery Patient Examined: Yes Patient H&P Reviewed: Yes Patient is NPO: Yes
[2019-06-22] MEDS ORDERED: BUPIVACAINE-EPINEPHRINE/PF 0.5%-1:200,000 (30 ML) VIAL INFILTRATI ONE (12:18)
[2019-06-22] MEDS ORDERED: LIDOCAINE (1%) 10 MG/1 ML VIAL 20 ML MDV INFILTRATI ONE ×2 (12:24)
[2019-06-22] MEDS ORDERED: ceFAZolin/Water 2 GM/20 ML 4 GM/40 ML SYRINGE IV ONE (12:24)
[2019-06-22] MEDS ORDERED: BUPIVACAINE-EPINEPHRINE/PF 0.5%-1:200,000 (10 ML) VIAL INFILTRATI ONE ×2 (12:24)
[2019-06-22] MEDS ORDERED: ROCURONIUM 50 MG/5 ML INJ IV ONE ×2 (12:26→13:20)
[2019-06-22] MEDS ORDERED: fentaNYL 100 MCG/2 ML INJ ONE (13:27)
[2019-06-22] MEDS ORDERED: propofoL 200 MG/20 ML VIAL IV ONE (13:27)
--- NOTE | 2019-06-22 13:32 | Post Operative Note ---
Date of procedure: 06/22/19 (dictation:[id number]) Pre-op diagnosis: respiratory failure Post-op diagnosis: same Findings: deep airway Procedure: bronch guided perc trach IVF 300cc EBL min Anesthesia: GETA Surgeon: FRANCIS KNIGHT (Bronch -Kaitlynn) Estimated blood loss: minimal Pathology: none Condition: stable Disposition: ICU
--- NOTE | 2019-06-22 13:45 | Post Anesthesia Evaluation ---
- Post Anesthesia Evaluation Patient Participated: No Airway Patent: Yes Stable Respiratory Function: Yes Nausea/Vomiting: No Temp > 96.8F: Yes Pain Manageable: Yes Adequeate Hydration: Yes Anesthesia Complications: No Block Receding Appropriately: Not Applicable Patient on Ventilator: Yes
--- NOTE | 2019-06-22 13:55 | Operative Report ---
Operative Report Operative Report: Date of surgery: 06/22/19 Preoperative diagnosis: VDRF Post operative diagnosis: same Procedure performed: Fiberoptic bronchoscopy, PEG tube placement Surgeon: Sofya Calderón DO Co-surgeon: Katie Saez MD Anesthesia: GETA EBL: minimal Specimen: none Condition: stable Disposition: PACU HPI and indication: 34 yo M with hx of obesity hypoventilation syndrome who has required repeat intubation during this hospitalization. He was deemed a candidate for permanent tracheostomy by pulmonary service. All risks, benefits, alternatives to tracheostomy, PEG tube was discussed with his family and consent obtained. Procedure in detail: Pt identified in hospital bed and brought down to OR. He was placed in supine position and anesthesia administered. The abdomen prepped and draped in the usual sterile fashion and time out performed. Bite block was placed. An endoscope passed through the mouth, into the esophagus and then into the stomach. The stomach was insufflated. The NG tube was identified. Once the stomach was adequately insufflated, transillumination was performed. Transillumination was successful and an appropriate location on the abdominal wall was chosen for placement of the PEG tube. Local anesthetic was infiltrated into the skin and subcutaneous tissue at the intended incision site. A 1 cm incision was made using an 11 blade through which a needle/breakaway catheter sheath was inserted directly into the stomach under endoscopic visualization. The wire was passed through the needle and grasped with a snare. The endoscope and wire were then withdrawn from the mouth. The wire was connected to the PEG tube in the usual fashion and the PEG tube pulled through the mouth and into the stomach. The outer bumper was at 7 cm. The endoscope was then placed back through the mouth and advanced into the stomach under direct visualization. The inner bumper was seen in satisfactory position in the mid body of the stomach with the bumper flush against the mucosa of the stomach without tension. There was blood clot surrounding the bumper, however no active bleeding seen. The scope was advanced into the first portion of the duodenum which was unremarkable. The remainder of the stomach was inspected and unremarkable. The NG tube was withdrawn. The endoscope was then withdrawn from the stomach as the stomach was desufflated. As the endoscope was withdrawn from the esophagus, the esophagus was inspected and was unremarkable. The PEG tube was assembled in the usual fashion. Next, the tracheostomy portion of the procedure was performed. I performed fiberoptic bronchoscopy while Dr. Saez performed the percutaneous tracheostomy (see separate operative note). An adapter was attached to the endotracheal tube and he fiberoptic bronchoscope was passed through the endotracheal tube. The trachea and alexus were visualized. Trachea did appear edematous and inflamed. The endotracheal tube balloon was deflated and it was slowly retracted to 18 cm. At this point, Dr. Saez placed the tracheostomy tube under direct visualization by fiberoptic bronchoscopy. Please see separate operative note for more details on Tracheostomy placement. Once the tracheostomy tube was placed, the bronchoscope was withdrawn from the endotracheal tube and placed through the tracheostomy tube. The tracheostomy tube appeared to be in good position approximately 1.5 cm above the alexus. The bronchoscope was then withdrawn. The ventilator was connected. The inspiratory and expiratory volumes were satisfactory. The patient tolerated the procedure well. All sharp, instrument, sponge counts correct x2 at the end of the case.
--- NOTE | 2019-06-22 14:01 | Operative Report ---
PREOPERATIVE DIAGNOSIS: Respiratory failure. POSTOPERATIVE DIAGNOSIS: Respiratory failure. PROCEDURE: Bronchoscopic guided percutaneous tracheostomy. ATTENDING PHYSICIAN: Katie Saez MD ANESTHESIA: General. ESTIMATED BLOOD LOSS: Minimal. FLUIDS: 300 mL. FINDINGS: Very deep trachea, very thick neck. IMPLANTS: 8 XLT Shiley tracheostomy tube. COMPLICATIONS: None. DISPOSITION: Stable transport to ICU. INDICATIONS: This is a 34-year-old male who suffered respiratory failure and required intubation. The patient was assessed to be in need of tracheostomy for airway protection. Procedure, risks, benefits were explained to mother. Risks include but were not limited to infection, bleeding, pain, injury to surrounding structures, possible need for further procedures in the future. Mother understood and consented. OPERATIVE NOTE: The patient was brought down to the operating room. He was left on his transport bed due to his morbid obesity. A roll was placed underneath the shoulders. Sterile prep and drape was performed. Please see Dr. Calderón's note for the bronchoscopy portion of the case. After she was done, I then anesthetized the planned incision site with 1% lidocaine and 0.5% Marcaine. Incision was sharply made. Dissection was carried down bluntly to the pretracheal fascia. Small bleeders were controlled with electrocautery and the tissue was spread open. Under bronchoscopic guidance, I inserted the finder needle. It was slightly off midline to the right. We therefore made an adjustment and placed the introducer needle. This was close to midline. It was approximately at the 2nd tracheal ring. A guidewire was passed. Tract was dilated. I had some difficulty in getting the tracheostomy tube in and we then paused briefly to oxygenate the patient. His sats did not drop below 87. I thought that perhaps the thick subcutaneous tissue was compromising the passage of the tracheostomy tube. Therefore, I spread it open a little bit more and I put lubricating gel along the inside. This time, I was able to pass the tracheostomy tube and getting into position. Dr. Calderón could see the tracheostomy tube in the airway. She then passed the bronchoscope through the tracheostomy tube itself. It looked to be about 2 cm above the alexus. There was no bleeding. Volumes were about equal in inspiration and expiration. Everything looked very good. Trach collar was placed. Dressings were placed. The patient tolerated the procedure well. There were no complications. All counts were correct at the end of the case. Chest x-ray is pending at the time of dictation. Of note, I did call the mother to let her know that everything went well. JOB# [id number] JACK/MICHAEL BARBOZA
--- NOTE | 2019-06-22 14:12 | XRay Report ---
CHEST 1 VIEW 1:46 PM INDICATION / CLINICAL INFORMATION: Tracheostomy placement. COMPARISON: Earlier today at 2:07 AM. FINDINGS: SUPPORT DEVICES: There is a new tracheostomy tube in good position. The nasogastric tube has been rem nolan. The position of the left jugular CVL has not changed. HEART / MEDIASTINUM: Unchanged. LUNGS / PLEURA: Left retrocardiac opacity has probably not changed. Mild right basilar subsegmental a telectasis is stable. No pneumothorax. ADDITIONAL FINDINGS: No significant additional findings. IMPRESSION: New tracheostomy tube placement without complication. Signer Name: Malcom Tran MD Signed: 06/22/2019 2:08 PM Workstation Name: [id number]
[2019-06-22 15:49] LABS: Heparin-Induced Platelet Antib Negative (Negative); Unfractionated Heparin Negative (Negative)
--- NOTE | 2019-06-22 18:45 | Progress Note ---
Assessment and Plan Assessment and plan: 34-year-old man with morbid obesity was brought to the hospital for shortness of breath and insomnia. He was found to have severe hypoxia and bradycardia who then became pulseless, he was cyanotic and he was intubated after receiving CPR with 2 rounds of epinephrine. Acute respiratory failure with hypoxia and hypercapnia on mechanical ventilator greater than 96 hours -Obesity hypoventilation Patient extubated 06/07 after being on the ventilator for 37 days, now reintubated on 06/16 plan for trache/peg, dw GS Status post cardiac arrest anoxic/ischemic brain injury Patient's mentation is improved ., EEG was negative for seizures and neurology consult appreciated. Hypertensive emergency off cardene drip since 06/13, resolved, BP meds discontinued Fever Flu neg, UA neg, cxr no infiltrate, BC in progress ID consult appreciated, monitor off abx Severe malnutrition Dysphasia; dw with his mom, she is agreeable to PEG tube, GS consulted -Dietitian input appreciated, continue tube feeds Anemia of chronic disease; transfuse to keep hemoglobin above 7, iron supplements Thrombocytopenia; worsening, question if this is HIT. Follow-up HIT labs, hold Lovenox, hematology consult appreciated Acute kidney injury due to ATN Dialysis now put on hold, kidney function improving Nephrology input appreciated, tolerating diuretics -PC will be dc by neph later on this week if kidney function continues to improve Fluid overload Status post diuretics which were dosed by cook pie. Nephrology does not recommend further diuresis at this time. hypernatremia; resolved, discontinue D5 water hypokalemia/hypomagnesemia; repleted Morbid obesity; will need weight loss program upon discharge DVT prophylaxis; scd for now Disposition; does not have a pay source for rehab, therefore home with home health services CCT 33 minutes History Interval history: Patient seen and examined medical records reviewed Scheduled for trach and PEG today Orally intubated on ventilatory support Vital signs reviewed N.p.o. status Hospitalist Physical - Constitutional Vitals: Temp Pulse Resp BP Pulse Ox 100.1 F H 100 H 20 152/74 98 06/22/19 16:00 06/22/19 18:30 06/22/19 18:30 06/22/19 18:30 06/22/19 18:30 General appearance: Present: no acute distress, well-nourished - EENT Eyes: Present: PERRL, EOM intact - Neck Neck: Present: supple, normal ROM - Respiratory Respiratory effort: normal Respiratory: bilateral: diminished, rhonchi, negative: rales, wheezing - Cardiovascular Rhythm: regular Heart Sounds: Present: S1 & S2 - Extremities Extremities: no ischemia, No edema - Abdominal General gastrointestinal: soft, non-tender, non-distended, normal bowel sounds - Integumentary Integumentary: Present: clear, warm - Psychiatric Psychiatric: appropriate mood/affect, cooperative, other (Intubated on vent) - Neurologic Neurologic: other (Intubated on vent) Results - Labs CBC & Chem 7: 06/24/19 06:53 06/24/19 06:53 Labs: Laboratory Last Values WBC 12.6 K/mm3 (4.5-11.0) H 06/22/19 05:30 RBC 3.10 M/mm3 (3.65-5.03) L 06/22/19 05:30 Hgb 8.7 gm/dl (11.8-15.2) L 06/22/19 05:30 Hct 27.0 % (35.5-45.6) L 06/22/19 05:30 MCV 87 fl (84-94) 06/22/19 05:30 MCH 28 pg (28-32) 06/22/19 05:30 MCHC 32 % (32-34) 06/22/19 05:30 RDW 19.8 % (13.2-15.2) H 06/22/19 05:30 Plt Count 151 K/mm3 (140-440) 06/22/19 05:30 Lymph % (Auto) 9.2 % (13.4-35.0) L 06/20/19 04:40 [place] % (Auto) 12.0 % (0.0-7.3) H 06/20/19 04:40 Eos % (Auto) 5.2 % (0.0-4.3) H 06/20/19 04:40 Baso % (Auto) 0.3 % (0.0-1.8) 06/20/19 04:40 Lymph # 0.9 K/mm3 (1.2-5.4) L 06/20/19 04:40 [place] # 1.2 K/mm3 (0.0-0.8) H 06/20/19 04:40 Eos # 0.5 K/mm3 (0.0-0.4) H 06/20/19 04:40 Baso # 0.0 K/mm3 (0.0-0.1) 06/20/19 04:40 Add Manual Diff Complete 06/22/19 05:30 Total Counted 100 06/22/19 05:30 Seg Neutrophils % 73.3 % (40.0-70.0) H 06/20/19 04:40 Seg Neuts % (Manual) 69.0 % (40.0-70.0) 06/22/19 05:30 Band Neutrophils % 1.0 % 06/22/19 05:30 Lymphocytes % (Manual) 15.0 % (13.4-35.0) 06/22/19 05:30 Reactive Lymphs % (Man) 0 % 06/22/19 05:30 Monocytes % (Manual) 10.0 % (0.0-7.3) H 06/22/19 05:30 Eosinophils % (Manual) 3.0 % (0.0-4.3) 06/22/19 05:30 Basophils % (Manual) 1.0 % (0.0-1.8) 06/22/19 05:30 Metamyelocytes % 1.0 % 06/22/19 05:30 Myelocytes % 0 % 06/22/19 05:30 Promyelocytes % 0 % 06/22/19 05:30 Blast Cells % 0 % 06/22/19 05:30 Nucleated RBC % Not Reportable 06/22/19 05:30 Seg Neutrophils # 7.6 K/mm3 (1.8-7.7) 06/20/19 04:40 Seg Neutrophils # Man 8.7 K/mm3 (1.8-7.7) H 06/22/19 05:30 Band Neutrophils # 0.1 K/mm3 06/22/19 05:30 Lymphocytes # (Manual) 1.9 K/mm3 (1.2-5.4) 06/22/19 05:30 Abs React Lymphs (Man) 0.0 K/mm3 06/22/19 05:30 Monocytes # (Manual) 1.3 K/mm3 (0.0-0.8) H 06/22/19 05:30 Eosinophils # (Manual) 0.4 K/mm3 (0.0-0.4) 06/22/19 05:30 Basophils # (Manual) 0.1 K/mm3 (0.0-0.1) 06/22/19 05:30 Metamyelocytes # 0.1 K/mm3 06/22/19 05:30 Myelocytes # 0.0 K/mm3 06/22/19 05:30 Promyelocytes # 0.0 K/mm3 06/22/19 05:30 Blast Cells # 0.0 K/mm3 06/22/19 05:30 WBC Morphology Not Reportable 06/22/19 05:30 Hypersegmented Neuts Not Reportable 06/22/19 05:30 Hyposegmented Neuts Not Reportable 06/22/19 05:30 Hypogranular Neuts Not Reportable 06/22/19 05:30 Smudge Cells Not Reportable 06/22/19 05:30 Toxic Granulation Not Reportable 06/22/19 05:30 Toxic Vacuolation Not Reportable 06/22/19 05:30 Dohle Bodies Not Reportable 06/22/19 05:30 Pelger-Huet Anomaly Not Reportable 06/22/19 05:30 Renea Rods Not Reportable 06/22/19 05:30 Platelet Estimate Consistent w auto 06/22/19 05:30 Clumped Platelets Not Reportable 06/22/19 05:30 Plt Clumps, EDTA Not Reportable 06/22/19 05:30 Large Platelets Not Reportable 06/22/19 05:30 Giant Platelets Not Reportable 06/22/19 05:30 Platelet Satelliting Not Reportable 06/22/19 05:30 Plt Morphology Comment Not Reportable 06/22/19 05:30 RBC Morphology Not Reportable 06/22/19 05:30 Dimorphic RBCs Not Reportable 06/22/19 05:30 Polychromasia Not Reportable 06/22/19 05:30 Hypochromasia Not Reportable 06/22/19 05:30 Poikilocytosis Not Reportable 06/22/19 05:30 Anisocytosis Few 06/22/19 05:30 Microcytosis Not Reportable 06/22/19 05:30 Macrocytosis Not Reportable 06/22/19 05:30 Spherocytes Not Reportable 06/22/19 05:30 Pappenheimer Bodies Not Reportable 06/22/19 05:30 Sickle Cells Not Reportable 06/22/19 05:30 Target Cells Not Reportable 06/22/19 05:30 Tear Drop Cells Rare 06/22/19 05:30 Ovalocytes Not Reportable 06/22/19 05:30 Stomatocytes Rare 06/21/19 05:20 Helmet Cells Not Reportable 06/22/19 05:30 [place] Bodies Not Reportable 06/22/19 05:30 [place] Rings Not Reportable 06/22/19 05:30 [place] Cells Not Reportable 06/22/19 05:30 Bite Cells Not Reportable 06/22/19 05:30 Crenated Cell Not Reportable 06/22/19 05:30 Elliptocytes Rare 06/22/19 05:30 Acanthocytes (Spur) Not Reportable 06/22/19 05:30 Rouleaux Not Reportable 06/22/19 05:30 Hemoglobin C Crystals Not Reportable 06/22/19 05:30 Schistocytes Not Reportable 06/22/19 05:30 Malaria parasites Not Reportable 06/22/19 05:30 Syed Bodies Not Reportable 06/22/19 05:30 Hem Pathologist Commnt No 06/22/19 05:30 PT 15.4 Sec. (12.2-14.9) H 05/01/19 Unknown INR 1.23 (0.87-1.13) H 05/01/19 Unknown APTT 22.7 Sec. (24.2-36.6) L 05/01/19 Unknown Fibrinogen 194 mg/dl (211-480) L 06/17/19 12:45 Heparin Anti-Xa, Unfract Negative (Negative) 06/17/19 12:45 POC ABG pH 7.462 (7.35-7.45) H 06/05/19 03:52 ABG pH 7.444 pH Units (7.350-7.450) 06/22/19 04:11 POC ABG pCO2 39.8 (35-45) 06/05/19 03:52 ABG pCO2 41.4 mm Hg 06/22/19 04:11 POC ABG pO2 86 (80-105) 06/05/19 03:52 ABG pO2 88.1 mm Hg (80.0-90.0) 06/22/19 04:11 POC ABG HCO3 28.4 (22-26 mml/L) 06/05/19 03:52 ABG HCO3 27.7 mmol/L (20.0-26.0) H 06/22/19 04:11 POC ABG Total CO2 30 (23-27mmol/L) 06/05/19 03:52 POC ABG O2 Sat 97 06/05/19 03:52 ABG O2 Saturation 97.2 % (95.0-99.0) 06/22/19 04:11 ABG O2 Content 11.4 (0.0-44) 06/22/19 04:11 POC ABG Base Excess 5 ((-2) - (+3)mmol/L) 06/05/19 03:52 ABG Base Excess 3.3 mmol/L (-2.0-3.0) H 06/22/19 04:11 ABG Hemoglobin 8.5 gm/dl (14.0-18.0) L 06/22/19 04:11 ABG Carboxyhemoglobin 1.9 % (0.0-5.0) 06/22/19 04:11 ABG Methemoglobin 0.5 % (0.0-1.5) 06/22/19 04:11 Oxyhemoglobin 94.9 % (95.0-99.0) L 06/22/19 04:11 FiO2 25 % 06/22/19 04:11 Sodium 144 mmol/L (137-145) 06/22/19 05:30 Potassium 3.6 mmol/L (3.6-5.0) 06/22/19 05:30 Chloride 102.4 mmol/L (98-107) 06/22/19 05:30 Carbon Dioxide 28 mmol/L (22-30) 06/22/19 05:30 Anion Gap 17 mmol/L 06/22/19 05:30 BUN 66 mg/dL (9-20) H 06/22/19 05:30 Creatinine 1.0 mg/dL (0.8-1.5) 06/22/19 05:30 Estimated GFR > 60 ml/min 06/22/19 05:30 BUN/Creatinine Ratio 66 % 06/22/19 05:30 Glucose 103 mg/dL (75-100) H 06/22/19 05:30 POC Glucose 101 (70-105) 06/22/19 11:33 Osmolality 327 Mosm/kg 05/07/19 13:45 Uric Acid 18.0 mg/dL (3.5-7.6) H 05/07/19 13:45 Calcium 9.1 mg/dL (8.4-10.2) 06/22/19 05:30 Phosphorus 3.70 mg/dL (2.5-4.5) 06/10/19 05:45 Magnesium 2.10 mg/dL (1.7-2.3) 06/22/19 05:30 Iron 45 ug/dL (49-181) L 06/20/19 09:12 TIBC 110 mcg/dL (250-450) L 06/20/19 09:12 Ferritin 315.2 ng/mL (13.0-400.0) 06/20/19 09:12 Total Bilirubin 0.50 mg/dL (0.1-1.2) 06/08/19 04:20 AST 23 units/L (5-40) 06/08/19 04:20 ALT 66 units/L (7-56) H 06/08/19 04:20 Alkaline Phosphatase 59 units/L (35-129) 06/08/19 04:20 Total Creatine Kinase 131 units/L (55-170) 05/02/19 04:41 CK-MB (CK-2) 5.2 ng/mL (0.0-4.0) H 05/02/19 04:41 CK-MB (CK-2) Rel Index 3.9 (0-4) 05/02/19 04:41 Troponin T 0.067 ng/mL (0.00-0.029) H D 05/02/19 04:41 NT-Pro-B Natriuret Pep 6831 pg/mL (0-450) H 05/01/19 Unknown Total Protein 5.5 g/dL (6.3-8.2) L 06/08/19 04:20 Albumin 2.9 g/dL (3.9-5) L 06/08/19 04:20 Albumin/Globulin Ratio 1.1 % 06/08/19 04:20 Triglycerides 210 mg/dL (2-149) H 06/19/19 04:30 Cholesterol 173 mg/dL (50-199) 05/02/19 00:06 LDL Cholesterol Direct 126 mg/dL (50-130) 05/02/19 00:06 HDL Cholesterol 18 mg/dL (40-59) L 05/02/19 00:06 Cholesterol/HDL Ratio 9.61 % 05/02/19 00:06 Vitamin B12 353.0 pg/mL (211-911) 06/20/19 09:12 Folate 7.01 ng/mL (7.3-26.0) L 06/20/19 09:12 Procalcitonin 0.05 ng/mL (<0.15) 06/17/19 12:45 Urine Color Yellow (Yellow) 06/17/19 12:45 Urine Turbidity Slightly-cloudy (Clear) 06/17/19 12:45 Urine pH 5.0 (5.0-7.0) 06/17/19 12:45 Ur Specific [place] 1.013 (1.003-1.030) 06/17/19 12:45 Urine Protein <15 mg/dl mg/dL (Negative) 06/17/19 12:45 Urine Glucose (UA) Neg mg/dL (Negative) 06/17/19 12:45 Urine Ketones Neg mg/dL (Negative) 06/17/19 12:45 Urine Blood Sm (Negative) 06/17/19 12:45 Urine Nitrite Neg (Negative) 06/17/19 12:45 Urine Bilirubin Neg (Negative) 06/17/19 12:45 Urine Urobilinogen < 2.0 mg/dL (<2.0) 06/17/19 12:45 Ur Leukocyte Esterase Neg (Negative) 06/17/19 12:45 Urine WBC (Auto) 2.0 /HPF (0.0-6.0) 06/17/19 12:45 Urine RBC (Auto) 2.0 /HPF (0.0-6.0) 06/17/19 12:45 U Epithel Cells (Auto) < 1.0 /HPF (0-13.0) 06/17/19 12:45 Urine Bacteria (Auto) 1+ /HPF (Negative) 05/20/19 12:00 Uric Acid Crystals 3+ 05/03/19 10:55 Urine Mucus Few /HPF 06/17/19 12:45 Urine Yeast (Budding) 3+ /HPF 05/20/19 12:00 Urine Creatinine 292.8 mg/dL (0.1-20.0) H 05/07/19 22:40 Urine Sodium 11 mmol/L 05/07/19 22:40 Urine Total Protein 269 mg/dL (5-11.8) H 05/07/19 22:40 Vancomycin Trough 20.5 ug/mL (5.0-20.0) H 05/15/19 09:00 Random Vancomycin 11.5 ug/mL (0-40.0) 05/27/19 06:00 AMNA Screen Negative (Negative) 05/07/19 13:45 Heparin-induced Plt Ab Negative (Negative) 06/17/19 12:45 UF Heparin High Dose 13 % Release 06/17/19 12:45 YUNG UFH Low Dose 0.1 8 % Release 06/17/19 12:45 YUNG UFH Low Dose 0.5 7 % Release 06/17/19 12:45 Hepatitis A IgM Ab Non-reactive (NonReactive) 05/07/19 13:45 Hep Bs Antigen Non-reactive (Negative) 05/07/19 13:45 Hep B Core IgM Ab Non-reactive (NonReactive) 05/07/19 13:45 Hepatitis C Antibody Non-reactive (NonReactive) 05/07/19 13:45 Influenza A (Rapid) Negative (Negative) 06/17/19 11:35 Influenza B (Rapid) Negative (Negative) 06/17/19 11:35 Active Medications - Current Medications Current Medications: Generic Name Dose Route Start Last Admin Trade Name Freq PRN Reason Stop Dose Admin Acetaminophen 650 mg 06/17/19 10:00 06/17/19 21:20 Tylenol PO 650 mg Q6H PRN Administration FOR TEMP >/=100.4 Lipase/Protease/Amylase 1 each 05/14/19 15:[address] 10,500 Unit FEEDTUBE PRN PRN For Clogged Feeding Tube Dextrose 50 gm 05/01/19 20:24 D50w (25gm) Vial IV Q30MIN PRN Hypoglycemia Protocol Famotidine 20 mg 06/17/19 10:00 06/22/19 11:39 Pepcid PO Not Given BID VIKCEY Ferrous Sulfate 308 mg 06/18/19 12:00 06/22/19 11:39 Ferrous Sulfate PO Not Given QDAY VICKEY Hydrophilic Ointment 1 applic 06/16/19 17:34 Vaseline Lip Therapy TP Q2HR PRN Dry Lips Propofol 1,000 mg in 100 mls @ 7.716 mls/hr 06/16/19 21:00 06/22/19 16:01 Diprivan 10 Mg/Ml IV 10 mcg/kg/min TITR VICKEY 15.432 mls/hr Administration Protocol 5 MCG/KG/MIN Fentanyl Citrate 2,000 mcg in 100 mls @ 12.86 mls/hr 06/17/19 14:00 Fentanyl Drip Premix IV TITR VICKEY Protocol 1 MCG/KG/HR Insulin Human Lispro 0 unit 06/01/19 14:00 06/22/19 18:43 Humalog SUB-Q Not Given Q6HR [facility] Protocol Labetalol HCl 10 mg 06/11/19 22:48 06/22/19 16:11 Labetalol IV 10 mg Q4H PRN Administration BP >170/105; hold for HR <60 Methylprednisolone Sodium Succinate 20 mg 06/22/19 12:00 06/22/19 11:25 Solu-Medrol IV 20 mg Q24HR VICKEY Administration Multi-Ingred Cream/Lotion/Oil/Oint 1 applic 06/16/19 18:00 Artificial Tears Ophth Oint OU Q4HR PRN Dry Eye(s) Potassium Chloride 40 meq 06/19/19 10:00 06/22/19 11:39 Potassium Chloride FEEDTUBE Not Given QDAY VICKEY Simple Syrup 15 ml 05/14/19 15:01 Simple Syrup FEEDTUBE PRN PRN Hypoglycemia Simple Syrup 30 ml 05/14/19 15:01 Simple Syrup FEEDTUBE PRN PRN Hypoglycemia Sodium Bicarbonate 325 mg 05/14/19 15:01 Sodium Bicarbonate FEEDTUBE PRN PRN For Clogged Feeding Tube Nutrition/Malnutrition Assess - Dietary Evaluation Nutrition/Malnutrition Findings: Nutrition Notes Start: 05/04/19 12:54 Freq: Status: Active Protocol: Document 06/16/19 12:24 CW (Rec: 06/16/19 12:34 CW [id number]) Co-Sign 06/16/19 12:24 LP Nutrition Notes Initial or Follow up Reassessment Current Diagnosis Acute Kidney Injury,Sepsis, Respiratory Failure Other Pertinent Diagnosis HD Current Diet Nepro 1.8 at 50 ml/hr Labs/Tests BUN 49 BG 264 Cr 0.7 Pertinent Medications Humalog Solumedrol Height 6 ft 4 in Weight 257.2 kg [place] Body Weight (kg) 91.81 BMI 69.0 Weight change and time frame No wt change noted Weight Status Morbidly Obese Subjective/Other Information F/U for diet advancement. Pt. failed swallow test per CODING QUALITY ANALYST. PO not recommended. TF restarted and is being tolerated Percent of energy/protein needs met: 100%/43% Burn Absent Trauma Absent GI Symptoms None Current % PO Negligible Minimum of two criteria No physical signs of malnutrition #1 Nutrition Diagnosis Inadequate oral intake Diagnosis Progress(for reassessment Continues documentation) Is patient on ventilator? No Is Patient Ambulatory and/or Out of Bed No REE-([facility]-confined to bed) 4342.284 Kcal/Kg value to use for calculation 8 Approximate Energy Requirements Using 2057 kcal/Kg Calculation Used for Recommendations Kcal/kg Additional Notes PRO needs: 73 - 91 g (0.8 - 1 g/kg IBW) Fluid needs: 1 ml/kcal Nutrition Intervention Change Diet Order: Continue TF Nutrition Support: Nepro 1.8 at 50 ml/hr Flush with 250ml q4h Kcal 2,160 Protein (gm) 97 Fluid (mL) 872 Goal #1 TF tolerance [ End ] Goal #2 Meet at least 75% kcal/PRO needs via TF Anticipated Discharge Needs: Unable to determine at this time Follow-Up By: 06/23/19 Additional Comments F/U TF tolerance
[2019-06-23] MEDS: INSULIN LISPRO 100 UNIT/ML SUB-Q SCH ×4 (01:41→18:11)
--- NOTE | 2019-06-23 03:12 | XRay Report ---
CHEST 1 VIEW INDICATION / CLINICAL INFORMATION: follow up respiratory failure. COMPARISON: 06/22/2019 FINDINGS: SUPPORT DEVICES: Stable, satisfactory device positioning. HEART / MEDIASTINUM: Unchanged LUNGS / PLEURA: The lungs appear unchanged. No pneumothorax. ADDITIONAL FINDINGS: No significant additional findings. IMPRESSION: 1. No significant change. Signer Name: Bony Israel MD Signed: 06/23/2019 3:08 AM Workstation Name: [id number]
[2019-06-23 04:13] LABS: ABG Methemoglobin 0.5 % (0.0-1.5); ABG Oxygen Saturation 94.6 % (95.0-99.0); ABG PCO2 39.4 mm Hg; ABG PH 7.469 pH Units (7.350-7.450); ABG PO2 58.7 mm Hg (80.0-90.0)
[2019-06-23 06:03] LABS: Hematocrit 25.5 % (35.5-45.6); Hemoglobin 8.3 gm/dl (11.8-15.2); Mean Corpuscular HGB Conc 33 % (32-34); Mean Corpuscular Volume 86 fl (84-94); Platelet Count 186 K/mm3 (140-440); Red Blood Count 2.96 M/mm3 (3.65-5.03)
[2019-06-23 06:16] LABS: Red Cell Distribution Width 20.2 % (13.2-15.2)
[2019-06-23 06:20] LABS: BUN/Creatinine Ratio 60; Blood Urea Nitrogen 48 mg/dL (9-20); Calcium 8.9 mg/dL (8.4-10.2); Hemolysis Index 1
[2019-06-23 06:59] LABS: Band Neutrophils # (Manual) 0.1 K/mm3; Basophils % (Manual) 0 % (0.0-1.8); Stomatocytes 3+; Total Cells Counted 100
[2019-06-23 07:00] LABS: Anisocytosis 1+; Platelet Estimate Consistent w Auto; Tear Drop Cells Rare
[2019-06-23] MEDS ORDERED: POTASSIUM CHLORIDE 20 MEQ PACKET FEEDTUBE ONE (09:00)
[2019-06-23] MEDS: methylPREDNISolone Sod Succinate 40 MG/1 ML INJ IV SCH (10:24)
[2019-06-23] MEDS: POTASSIUM CHLORIDE 20 MEQ PACKET FEEDTUBE SCH (10:24)
[2019-06-23] MEDS: FAMOTIDINE 20 MG TAB PO SCH ×2 (10:25→22:19)
[2019-06-23] MEDS: FOLIC ACID/VIT B COMP W-C 1 MG (RENAL CAPS) PO SCH (10:25)
[2019-06-23] MEDS: FERROUS SULFATE 308 MG (62mg Elemental Iron) / 7 ML ELIXIR PO SCH (10:25)
--- NOTE | 2019-06-23 10:48 | Progress Note ---
Assessment and Plan Assessment: * Acute kidney injury attributed to vancomycin toxicity - recovered, previously on hemodialysis * Hypernatremia * Acute hypoxic/hypercapneic respiratory failure * Hypertension * Hypokalemia * Morbid obesity Plan: * Renal function has recovered. No indication for hemodialysis * diuresis prn * Na noted, peg in place, will need free h20 * stop ARB, deshawn with h/o of dion and atn * Will arrange removal of permcath upcoming week * Vent management per pulmonary medicine - note plans for trach/PEG * Dose medications for renal function * restart minoxidil prn * Avoid nephrotoxins Subjective Date of service: 06/23/19 Principal diagnosis: anemia - LOw PLT Interval history: resting in bed today Objective - Exam Narrative Exam: General: No acute distress/ intubated and sedated HEENT: ET tube in place Neck: Supple Chest:coarse mechanical breath sounds, PRVC with FiO2 50% Heart: Regular rate and rhythm Abdomen: Soft nontender Extremity: no edema Psych: sedated Derm: No petechial rash - Vital Signs Vital signs: Vital Signs - 12hr 06/22/19 06/22/19 06/22/19 22:59 23:00 23:01 Temperature Pulse Rate 112 H 114 H 113 H Pulse Rate [ From Monitor] Respiratory 17 18 18 Rate Blood Pressure 142/57 132/63 132/63 O2 Sat by Pulse 95 95 96 Oximetry O2 Sat by Pulse Oximetry [ Assessment] 06/22/19 06/22/19 06/22/19 23:30 23:35 23:50 Temperature 99.3 F Pulse Rate 109 H 107 H Pulse Rate [ From Monitor] Respiratory 19 Rate Blood Pressure 119/83 119/83 O2 Sat by Pulse 96 96 Oximetry O2 Sat by Pulse Oximetry [ Assessment] 06/23/19 06/23/19 06/23/19 00:00 00:30 01:00 Temperature Pulse Rate 108 H 108 H 110 H Pulse Rate [ From Monitor] Respiratory 24 27 H 24 Rate Blood Pressure 134/59 134/66 144/67 O2 Sat by Pulse 92 93 92 Oximetry O2 Sat by Pulse Oximetry [ Assessment] 06/23/19 06/23/19 06/23/19 01:18 01:30 02:00 Temperature Pulse Rate 109 H 109 H Pulse Rate [ 100 H From Monitor] Respiratory 20 21 Rate Blood Pressure 137/69 146/63 O2 Sat by Pulse 100 97 96 Oximetry O2 Sat by Pulse Oximetry [ Assessment] 06/23/19 06/23/19 06/23/19 02:30 03:00 03:30 Temperature Pulse Rate 112 H 109 H 108 H Pulse Rate [ From Monitor] Respiratory 21 23 20 Rate Blood Pressure 129/62 135/64 135/64 O2 Sat by Pulse 93 97 96 Oximetry O2 Sat by Pulse Oximetry [ Assessment] 06/23/19 06/23/19 06/23/19 03:57 04:00 04:30 Temperature 99.2 F Pulse Rate 109 H 115 H Pulse Rate [ 100 H From Monitor] Respiratory 17 19 Rate Blood Pressure 172/85 175/81 O2 Sat by Pulse 96 94 Oximetry O2 Sat by Pulse Oximetry [ Assessment] 06/23/19 06/23/19 06/23/19 04:51 05:00 05:30 Temperature Pulse Rate 113 H 113 H 108 H Pulse Rate [ From Monitor] Respiratory 25 H 25 H Rate Blood Pressure 172/78 178/76 151/74 O2 Sat by Pulse 98 94 95 Oximetry O2 Sat by Pulse Oximetry [ Assessment] 06/23/19 06/23/19 06/23/19 06:00 06:30 07:00 Temperature Pulse Rate 103 H 105 H 107 H Pulse Rate [ From Monitor] Respiratory 17 22 21 Rate Blood Pressure 164/64 141/59 142/59 O2 Sat by Pulse 94 95 95 Oximetry O2 Sat by Pulse Oximetry [ Assessment] 06/23/19 06/23/19 06/23/19 07:30 08:00 08:30 Temperature 101.0 F H Pulse Rate 106 H 108 H 107 H Pulse Rate [ From Monitor] Respiratory 24 25 H 23 Rate Blood Pressure 148/65 159/65 150/65 O2 Sat by Pulse 96 95 94 Oximetry O2 Sat by Pulse Oximetry [ Assessment] 06/23/19 06/23/19 06/23/19 08:55 08:59 09:00 Temperature Pulse Rate 108 H 105 H Pulse Rate [ From Monitor] Respiratory 24 Rate Blood Pressure 157/70 159/74 O2 Sat by Pulse 96 95 Oximetry O2 Sat by Pulse 97 Oximetry [ Assessment] 06/23/19 06/23/19 09:30 10:00 Temperature Pulse Rate 97 H 110 H Pulse Rate [ From Monitor] Respiratory 19 22 Rate Blood Pressure 140/61 159/90 O2 Sat by Pulse 96 96 Oximetry O2 Sat by Pulse Oximetry [ Assessment] - Lab 06/23/19 05:24 06/23/19 05:24 Most recent lab results ABG pH 7.469 pH Units (7.350-7.450) H 06/23/19 02:00 ABG pCO2 39.4 mm Hg 06/23/19 02:00 ABG pO2 58.7 mm Hg (80.0-90.0) L 06/23/19 02:00 ABG HCO3 28.0 mmol/L (20.0-26.0) H 06/23/19 02:00 ABG O2 Saturation 94.6 % (95.0-99.0) L 06/23/19 02:00 Calcium 8.9 mg/dL (8.4-10.2) 06/23/19 05:24 Phosphorus 3.70 mg/dL (2.5-4.5) 06/10/19 05:45 Magnesium 1.90 mg/dL (1.7-2.3) 06/23/19 05:24 Urine Creatinine 292.8 mg/dL (0.1-20.0) H 05/07/19 22:40 Urine Sodium 11 mmol/L 05/07/19 22:40 Urine Total Protein 269 mg/dL (5-11.8) H 05/07/19 22:40 Medications & Allergies - Medications Allergies/Adverse Reactions: Allergies No Known Allergies Allergy (Verified 05/01/19 20:27) Home Medications: Home Medications Medication Instructions Recorded Confirmed Last Taken Type No Known Home Medications [No 05/03/19 05/03/19 Unknown History Reported Home Medications] Active Medications: Generic Name Dose Route Start Last Admin Trade Name Freq PRN Reason Stop Dose Admin Acetaminophen 650 mg 06/17/19 10:00 06/17/19 21:20 Tylenol PO 650 mg Q6H PRN Administration FOR TEMP >/=100.4 Lipase/Protease/Amylase 1 each 05/14/19 15:01 Pancreaze 10,500 Unit FEEDTUBE PRN PRN For Clogged Feeding Tube Dextrose 50 gm 05/01/19 20:24 D50w (25gm) Vial IV Q30MIN PRN Hypoglycemia Protocol Famotidine 20 mg 06/17/19 10:00 06/23/19 10:25 Pepcid PO 20 mg BID VICKEY Administration Ferrous Sulfate 308 mg 06/18/19 12:00 06/23/19 10:25 Ferrous Sulfate PO 308 mg QDAY VICKEY Administration Hydrophilic Ointment 1 applic 06/16/19 17:34 Vaseline Lip Therapy TP Q2HR PRN Dry Lips Propofol 1,000 mg in 100 mls @ 7.716 mls/hr 06/16/19 21:00 06/23/19 09:21 Diprivan 10 Mg/Ml IV 0 mcg/kg/min TITR VICKEY 0 mls/hr Titration Protocol 5 MCG/KG/MIN Fentanyl Citrate 2,000 mcg in 100 mls @ 12.86 mls/hr 06/17/19 14:00 Fentanyl Drip Premix IV TITR VICKEY Protocol 1 MCG/KG/HR Insulin Human Lispro 0 unit 06/01/19 14:00 06/23/19 06:24 Humalog SUB-Q Not Given Q6HR [facility] Protocol Labetalol HCl 10 mg 06/11/19 22:48 06/22/19 16:11 Labetalol IV 10 mg Q4H PRN Administration BP >170/105; hold for HR <60 Methylprednisolone Sodium Succinate 20 mg 06/22/19 12:00 06/23/19 10:24 Solu-Medrol IV 20 mg Q24HR VICKEY Administration Multi-Ingred Cream/Lotion/Oil/Oint 1 applic 06/16/19 18:00 Artificial Tears Ophth Oint OU Q4HR PRN Dry Eye(s) Multivit/Ca Carb/B Cmplx/FA/Prenat 1 cap 06/23/19 10:00 06/23/19 10:25 Renal Caps PO 1 cap QDAY VICKEY Administration Potassium Chloride 40 meq 06/19/19 10:00 06/23/19 10:24 Potassium Chloride FEEDTUBE 40 meq QDAY VICKEY Administration Simple Syrup 15 ml 05/14/19 15:01 Simple Syrup FEEDTUBE PRN PRN Hypoglycemia Simple Syrup 30 ml 05/14/19 15:01 Simple Syrup FEEDTUBE PRN PRN Hypoglycemia Sodium Bicarbonate 325 mg 05/14/19 15:01 Sodium Bicarbonate FEEDTUBE PRN PRN For Clogged Feeding Tube
--- NOTE | 2019-06-23 11:36 | Progress Note ---
Assessment and Plan 34 y/o male with acute hypoxic, hypercapnic respiratory failure currently ventilated and sedated, now with persistent fevers and seizure and on HD 06/23/2019: PSV all day today and tomorrow. Will start T-piece either tomorrow or Friday. Tolerating Feeds 06/22/2019: Patient scheduled for OR today. Plan as outlined in Dr. Saez's note from yesterday. Discussed with patient again this am. Really appreciate surgery help with this and the promptness of procedure. Will follow up post-op later today. 06/21/2019: Unfortunately re-intubated last week. Will need Trach and Peg, but I doubt peg will happen secondary to his size. Will discuss with surgery and maybe they can just put in a number 6 XLT from the start. I think he will get off the vent relatively quickly and can start to eat. This trach will be indefinite. I have explained this to him. I have not seen his family at the bedside during this admission but Im told they come in the evenings. 06/12/2019: Started HCTZ 50 daily and Labetalol 100 TID. Will increase Labetalol to 200 TID. Already on Clonidine patch. Continue Minoxidil. Will start to wean drip. PT/OT. Feeds through NG now that this is in place. Will need speech re-evaluation. Will order NT suctioning at least [id number] for the next 24 hours. 06/11/2019: Bipap at night and PRN. Na levels are increasing. Agree with D5W. Unable to place DH, several nurses tried. Will ask speech to come by and reassess now that patient is more willing to cooperate. . Continue PT/OT, sat up on side of bed yesterday. Continue IMCU monitoring for now. As stated below, patient was intubated for 37 days. CCT 31 minutes. Subjective Date of service: 06/23/19 Principal diagnosis: anemia - LOw PLT Interval history: no acute events. had trach and peg done yesterday. 8 XLT placed. Tolerated PSV with no issues. Objective Vital Signs - 12hr 06/22/19 06/22/19 06/23/19 23:35 23:50 00:00 Temperature 99.3 F Pulse Rate 107 H 108 H Pulse Rate [ From Monitor] Respiratory 24 Rate Blood Pressure 119/83 134/59 O2 Sat by Pulse 96 92 Oximetry O2 Sat by Pulse Oximetry [ Assessment] 06/23/19 06/23/19 06/23/19 00:30 01:00 01:18 Temperature Pulse Rate 108 H 110 H Pulse Rate [ 100 H From Monitor] Respiratory 27 H 24 Rate Blood Pressure 134/66 144/67 O2 Sat by Pulse 93 92 100 Oximetry O2 Sat by Pulse Oximetry [ Assessment] 06/23/19 06/23/19 06/23/19 01:30 02:00 02:30 Temperature Pulse Rate 109 H 109 H 112 H Pulse Rate [ From Monitor] Respiratory 20 21 21 Rate Blood Pressure 137/69 146/63 129/62 O2 Sat by Pulse 97 96 93 Oximetry O2 Sat by Pulse Oximetry [ Assessment] 06/23/19 06/23/19 06/23/19 03:00 03:30 03:57 Temperature 99.2 F Pulse Rate 109 H 108 H Pulse Rate [ From Monitor] Respiratory 23 20 Rate Blood Pressure 135/64 135/64 O2 Sat by Pulse 97 96 Oximetry O2 Sat by Pulse Oximetry [ Assessment] 06/23/19 06/23/19 06/23/19 04:00 04:30 04:51 Temperature Pulse Rate 109 H 115 H 113 H Pulse Rate [ 100 H From Monitor] Respiratory 17 19 Rate Blood Pressure 172/85 175/81 172/78 O2 Sat by Pulse 96 94 98 Oximetry O2 Sat by Pulse Oximetry [ Assessment] 06/23/19 06/23/19 06/23/19 05:00 05:30 06:00 Temperature Pulse Rate 113 H 108 H 103 H Pulse Rate [ From Monitor] Respiratory 25 H 25 H 17 Rate Blood Pressure 178/76 151/74 164/64 O2 Sat by Pulse 94 95 94 Oximetry O2 Sat by Pulse Oximetry [ Assessment] 06/23/19 06/23/19 06/23/19 06:30 07:00 07:30 Temperature Pulse Rate 105 H 107 H 106 H Pulse Rate [ From Monitor] Respiratory 22 21 24 Rate Blood Pressure 141/59 142/59 148/65 O2 Sat by Pulse 95 95 96 Oximetry O2 Sat by Pulse Oximetry [ Assessment] 06/23/19 06/23/19 06/23/19 08:00 08:30 08:55 Temperature 101.0 F H Pulse Rate 108 H 107 H 108 H Pulse Rate [ From Monitor] Respiratory 25 H 23 Rate Blood Pressure 159/65 150/65 157/70 O2 Sat by Pulse 95 94 96 Oximetry O2 Sat by Pulse Oximetry [ Assessment] 06/23/19 06/23/19 06/23/19 08:59 09:00 09:30 Temperature Pulse Rate 105 H 97 H Pulse Rate [ From Monitor] Respiratory 24 19 Rate Blood Pressure 159/74 140/61 O2 Sat by Pulse 95 96 Oximetry O2 Sat by Pulse 97 Oximetry [ Assessment] 06/23/19 10:00 Temperature Pulse Rate 110 H Pulse Rate [ From Monitor] Respiratory 22 Rate Blood Pressure 159/90 O2 Sat by Pulse 96 Oximetry O2 Sat by Pulse Oximetry [ Assessment] Constitutional: other (morbidly obese male, critically ill on vent) Eyes: non-icteric ENT: oropharynx moist Neck: other (extremely large in circumference) Effort: normal Ascultation: Bilateral: diminished breath sounds (secondary to body habitus), rhonchi Cardiovascular: regular rate and rhythm (no mrg) Gastrointestinal: normoactive bowel sounds, soft, non-tender, other (obese) Integumentary: other (L hand is wrapped) Extremities: no cyanosis, pink and warm, other (1+ generalized edema) Neurologic: normal mental status, non-focal exam Psychiatric: mood appropriate, affect normal CBC and BMP: 06/23/19 05:24 06/23/19 05:24 ABG, PT/INR, D-dimer: ABG POC ABG pH 7.462 (7.35-7.45) H 06/05/19 03:52 ABG pH 7.469 pH Units (7.350-7.450) H 06/23/19 02:00 POC ABG pCO2 39.8 (35-45) 06/05/19 03:52 ABG pCO2 39.4 mm Hg 06/23/19 02:00 POC ABG pO2 86 (80-105) 06/05/19 03:52 ABG pO2 58.7 mm Hg (80.0-90.0) L 06/23/19 02:00 POC ABG HCO3 28.4 (22-26 mml/L) 06/05/19 03:52 POC ABG Total CO2 30 (23-27mmol/L) 06/05/19 03:52 POC ABG O2 Sat 97 06/05/19 03:52 ABG O2 Saturation 94.6 % (95.0-99.0) L 06/23/19 02:00 PT/INR, D-dimer PT 15.4 Sec. (12.2-14.9) H 05/01/19 Unknown INR 1.23 (0.87-1.13) H 05/01/19 Unknown Abnormal lab findings: Abnormal Labs 05/01/19 05/01/19 05/01/19 17:50 19:26 22:36 WBC RBC Hgb Hct MCV MCH MCHC RDW Plt Count Lymph % (Auto) [place] % (Auto) Eos % (Auto) Lymph # [place] # Eos # Seg Neutrophils % Seg Neuts % (Manual) Lymphocytes % (Manual) Monocytes % (Manual) Eosinophils % (Manual) Nucleated RBC % Seg Neutrophils # Seg Neutrophils # Man Lymphocytes # (Manual) Monocytes # (Manual) Eosinophils # (Manual) PT INR APTT Fibrinogen POC ABG pH 7.272 L 7.331 L ABG pH POC ABG pCO2 52.8 H POC ABG pO2 ABG pO2 ABG HCO3 ABG O2 Saturation ABG Base Excess ABG Hemoglobin Oxyhemoglobin Sodium 136 L Potassium 6.5 H* Chloride 97.2 L Carbon Dioxide BUN 60 H Creatinine Glucose 113 H POC Glucose Uric Acid Calcium Phosphorus Magnesium 2.40 H Iron TIBC AST 139 H ALT 154 H Total Creatine Kinase CK-MB (CK-2) Troponin T NT-Pro-B Natriuret Pep Total Protein Albumin 3.8 L Triglycerides HDL Cholesterol Folate Urine WBC (Auto) Urine Creatinine Urine Total Protein Vancomycin Trough 05/01/19 05/01/19 05/01/19 Unknown Unknown Unknown WBC 16.1 H RBC Hgb Hct MCV MCH MCHC RDW 17.2 H Plt Count Lymph % (Auto) [place] % (Auto) 9.6 H Eos % (Auto) Lymph # [place] # 1.5 H Eos # Seg Neutrophils % 73.0 H Seg Neuts % (Manual) Lymphocytes % (Manual) Monocytes % (Manual) Eosinophils % (Manual) Nucleated RBC % Seg Neutrophils # 11.7 H Seg Neutrophils # Man Lymphocytes # (Manual) Monocytes # (Manual) Eosinophils # (Manual) PT 15.4 H INR 1.23 H APTT 22.7 L Fibrinogen POC ABG pH ABG pH POC ABG pCO2 POC ABG pO2 ABG pO2 ABG HCO3 ABG O2 Saturation ABG Base Excess ABG Hemoglobin Oxyhemoglobin Sodium Potassium Chloride Carbon Dioxide BUN Creatinine Glucose POC Glucose Uric Acid Calcium Phosphorus Magnesium Iron TIBC AST ALT Total Creatine Kinase CK-MB (CK-2) Troponin T NT-Pro-B Natriuret Pep 6831 H Total Protein Albumin Triglycerides HDL Cholesterol Folate Urine WBC (Auto) Urine Creatinine Urine Total Protein Vancomycin Trough 05/01/19 05/02/19 05/02/19 Unknown 00:06 00:06 WBC RBC Hgb Hct MCV MCH MCHC RDW Plt Count Lymph % (Auto) [place] % (Auto) Eos % (Auto) Lymph # [place] # Eos # Seg Neutrophils % Seg Neuts % (Manual) Lymphocytes % (Manual) Monocytes % (Manual) Eosinophils % (Manual) Nucleated RBC % Seg Neutrophils # Seg Neutrophils # Man Lymphocytes # (Manual) Monocytes # (Manual) Eosinophils # (Manual) PT INR APTT Fibrinogen POC ABG pH ABG pH POC ABG pCO2 POC ABG pO2 ABG pO2 ABG HCO3 ABG O2 Saturation ABG Base Excess ABG Hemoglobin Oxyhemoglobin Sodium Potassium Chloride Carbon Dioxide BUN Creatinine Glucose POC Glucose Uric Acid Calcium Phosphorus 4.90 H Magnesium Iron TIBC AST ALT Total Creatine Kinase 226 H CK-MB (CK-2) 5.7 H Troponin T 0.044 H NT-Pro-B Natriuret Pep Total Protein Albumin Triglycerides 182 H HDL Cholesterol 18 L Folate Urine WBC (Auto) Urine Creatinine Urine Total Protein Vancomycin Trough 05/02/19 05/02/19 05/02/19 02:08 04:40 04:41 WBC 17.6 H RBC Hgb Hct MCV MCH 27 L MCHC RDW 17.4 H Plt Count Lymph % (Auto) 10.2 L [place] % (Auto) 11.0 H Eos % (Auto) Lymph # [place] # 1.9 H Eos # Seg Neutrophils % 78.0 H Seg Neuts % (Manual) Lymphocytes % (Manual) Monocytes % (Manual) Eosinophils % (Manual) Nucleated RBC % Seg Neutrophils # 13.8 H Seg Neutrophils # Man Lymphocytes # (Manual) Monocytes # (Manual) Eosinophils # (Manual) PT INR APTT Fibrinogen POC ABG pH ABG pH POC ABG pCO2 46.8 H POC ABG pO2 63 L ABG pO2 ABG HCO3 ABG O2 Saturation ABG Base Excess ABG Hemoglobin Oxyhemoglobin Sodium Potassium Chloride 96.3 L Carbon Dioxide BUN 63 H Creatinine 1.7 H Glucose POC Glucose Uric Acid Calcium Phosphorus Magnesium Iron TIBC AST ALT Total Creatine Kinase CK-MB (CK-2) Troponin T NT-Pro-B Natriuret Pep Total Protein Albumin Triglycerides HDL Cholesterol Folate Urine WBC (Auto) Urine Creatinine Urine Total Protein Vancomycin Trough 05/02/19 05/02/19 05/02/19 04:41 04:41 16:05 WBC RBC Hgb Hct MCV MCH MCHC RDW Plt Count Lymph % (Auto) [place] % (Auto) Eos % (Auto) Lymph # [place] # Eos # Seg Neutrophils % Seg Neuts % (Manual) Lymphocytes % (Manual) Monocytes % (Manual) Eosinophils % (Manual) Nucleated RBC % Seg Neutrophils # Seg Neutrophils # Man Lymphocytes # (Manual) Monocytes # (Manual) Eosinophils # (Manual) PT INR APTT Fibrinogen POC ABG pH ABG pH POC ABG pCO2 POC ABG pO2 ABG pO2 66.6 L ABG HCO3 31.9 H ABG O2 Saturation 92.5 L ABG Base Excess 5.8 H ABG Hemoglobin 13.3 L Oxyhemoglobin 90.6 L Sodium Potassium Chloride 97.2 L Carbon Dioxide BUN 61 H Creatinine 1.8 H Glucose POC Glucose Uric Acid Calcium Phosphorus Magnesium Iron TIBC AST ALT Total Creatine Kinase CK-MB (CK-2) 5.2 H Troponin T 0.067 H D NT-Pro-B Natriuret Pep Total Protein Albumin Triglycerides HDL Cholesterol Folate Urine WBC (Auto) Urine Creatinine Urine Total Protein Vancomycin Trough 05/02/19 05/03/19 05/03/19 20:39 04:35 05:05 WBC 11.8 H RBC Hgb Hct MCV MCH 27 L MCHC 31 L RDW 17.2 H Plt Count Lymph % (Auto) [place] % (Auto) Eos % (Auto) Lymph # [place] # Eos # Seg Neutrophils % Seg Neuts % (Manual) Lymphocytes % (Manual) Monocytes % (Manual) Eosinophils % (Manual) Nucleated RBC % Seg Neutrophils # Seg Neutrophils # Man Lymphocytes # (Manual) Monocytes # (Manual) Eosinophils # (Manual) PT INR APTT Fibrinogen POC ABG pH ABG pH POC ABG pCO2 53.6 H 54.0 H POC ABG pO2 55 L 63 L ABG pO2 ABG HCO3 ABG O2 Saturation ABG Base Excess ABG Hemoglobin Oxyhemoglobin Sodium Potassium Chloride Carbon Dioxide BUN Creatinine Glucose POC Glucose Uric Acid Calcium Phosphorus Magnesium Iron TIBC AST ALT Total Creatine Kinase CK-MB (CK-2) Troponin T NT-Pro-B Natriuret Pep Total Protein Albumin Triglycerides HDL Cholesterol Folate Urine WBC (Auto) Urine Creatinine Urine Total Protein Vancomycin Trough 05/03/19 05/03/19 05/03/19 05:05 10:55 16:48 WBC RBC Hgb Hct MCV MCH MCHC RDW Plt Count Lymph % (Auto) [place] % (Auto) Eos % (Auto) Lymph # [place] # Eos # Seg Neutrophils % Seg Neuts % (Manual) Lymphocytes % (Manual) Monocytes % (Manual) Eosinophils % (Manual) Nucleated RBC % Seg Neutrophils # Seg Neutrophils # Man Lymphocytes # (Manual) Monocytes # (Manual) Eosinophils # (Manual) PT INR APTT Fibrinogen POC ABG pH 7.604 H ABG pH POC ABG pCO2 POC ABG pO2 58 L ABG pO2 ABG HCO3 ABG O2 Saturation ABG Base Excess ABG Hemoglobin Oxyhemoglobin Sodium Potassium Chloride Carbon Dioxide BUN 52 H Creatinine 1.9 H Glucose 103 H POC Glucose Uric Acid Calcium Phosphorus Magnesium Iron TIBC AST ALT Total Creatine Kinase CK-MB (CK-2) Troponin T NT-Pro-B Natriuret Pep Total Protein Albumin Triglycerides HDL Cholesterol Folate Urine WBC (Auto) 33.0 H Urine Creatinine Urine Total Protein Vancomycin Trough 05/04/19 05/04/19 05/04/19 04:49 06:50 06:50 WBC 16.0 H RBC Hgb Hct MCV MCH 27 L MCHC 31 L RDW 17.8 H Plt Count Lymph % (Auto) [place] % (Auto) Eos % (Auto) Lymph # [place] # Eos # Seg Neutrophils % Seg Neuts % (Manual) Lymphocytes % (Manual) Monocytes % (Manual) Eosinophils % (Manual) Nucleated RBC % Seg Neutrophils # Seg Neutrophils # Man Lymphocytes # (Manual) Monocytes # (Manual) Eosinophils # (Manual) PT INR APTT Fibrinogen POC ABG pH 7.273 L ABG pH POC ABG pCO2 POC ABG pO2 ABG pO2 ABG HCO3 ABG O2 Saturation ABG Base Excess ABG Hemoglobin Oxyhemoglobin Sodium 148 H Potassium 5.5 H Chloride Carbon Dioxide BUN 53 H Creatinine 3.3 H D Glucose 106 H POC Glucose Uric Acid Calcium 8.3 L Phosphorus Magnesium Iron TIBC AST ALT Total Creatine Kinase CK-MB (CK-2) Troponin T NT-Pro-B Natriuret Pep Total Protein Albumin Triglycerides HDL Cholesterol Folate Urine WBC (Auto) Urine Creatinine Urine Total Protein Vancomycin Trough 05/05/19 05/05/19 05/05/19 00:05 04:30 05:00 WBC RBC Hgb Hct MCV MCH MCHC RDW Plt Count Lymph % (Auto) [place] % (Auto) Eos % (Auto) Lymph # [place] # Eos # Seg Neutrophils % Seg Neuts % (Manual) Lymphocytes % (Manual) Monocytes % (Manual) Eosinophils % (Manual) Nucleated RBC % Seg Neutrophils # Seg Neutrophils # Man Lymphocytes # (Manual) Monocytes # (Manual) Eosinophils # (Manual) PT INR APTT Fibrinogen POC ABG pH 7.225 L ABG pH POC ABG pCO2 > 70 H POC ABG pO2 ABG pO2 ABG HCO3 ABG O2 Saturation ABG Base Excess ABG Hemoglobin Oxyhemoglobin Sodium 151 H Potassium 5.1 H Chloride Carbon Dioxide BUN 64 H Creatinine 3.5 H Glucose 117 H POC Glucose 141 H Uric Acid Calcium 7.5 L Phosphorus Magnesium Iron TIBC AST 93 H ALT 65 H Total Creatine Kinase CK-MB (CK-2) Troponin T NT-Pro-B Natriuret Pep Total Protein Albumin 2.9 L Triglycerides HDL Cholesterol Folate Urine WBC (Auto) Urine Creatinine Urine Total Protein Vancomycin Trough 05/05/19 05/05/19 05/05/19 05:00 12:02 17:46 WBC 12.0 H RBC Hgb 11.3 L Hct MCV MCH 27 L MCHC 30 L RDW 18.4 H Plt Count Lymph % (Auto) 7.9 L [place] % (Auto) 10.2 H Eos % (Auto) Lymph # 1.0 L [place] # 1.2 H Eos # Seg Neutrophils % 80.8 H Seg Neuts % (Manual) Lymphocytes % (Manual) Monocytes % (Manual) Eosinophils % (Manual) Nucleated RBC % Seg Neutrophils # 9.7 H Seg Neutrophils # Man Lymphocytes # (Manual) Monocytes # (Manual) Eosinophils # (Manual) PT INR APTT Fibrinogen POC ABG pH ABG pH POC ABG pCO2 POC ABG pO2 ABG pO2 ABG HCO3 ABG O2 Saturation ABG Base Excess ABG Hemoglobin Oxyhemoglobin Sodium Potassium Chloride Carbon Dioxide BUN Creatinine Glucose POC Glucose 125 H 112 H Uric Acid Calcium Phosphorus Magnesium Iron TIBC AST ALT Total Creatine Kinase CK-MB (CK-2) Troponin T NT-Pro-B Natriuret Pep Total Protein Albumin Triglycerides HDL Cholesterol Folate Urine WBC (Auto) Urine Creatinine Urine Total Protein Vancomycin Trough 05/05/19 05/06/19 05/06/19 23:42 03:58 04:45 WBC 11.4 H RBC Hgb 10.7 L Hct 34.2 L MCV MCH 27 L MCHC 31 L RDW 16.9 H Plt Count Lymph % (Auto) [place] % (Auto) Eos % (Auto) Lymph # [place] # Eos # Seg Neutrophils % Seg Neuts % (Manual) Lymphocytes % (Manual) Monocytes % (Manual) Eosinophils % (Manual) Nucleated RBC % Seg Neutrophils # Seg Neutrophils # Man Lymphocytes # (Manual) Monocytes # (Manual) Eosinophils # (Manual) PT INR APTT Fibrinogen POC ABG pH ABG pH POC ABG pCO2 62.4 H POC ABG pO2 111 H ABG pO2 ABG HCO3 ABG O2 Saturation ABG Base Excess ABG Hemoglobin Oxyhemoglobin Sodium Potassium Chloride Carbon Dioxide BUN Creatinine Glucose POC Glucose 128 H Uric Acid Calcium Phosphorus Magnesium Iron TIBC AST ALT Total Creatine Kinase CK-MB (CK-2) Troponin T NT-Pro-B Natriuret Pep Total Protein Albumin Triglycerides HDL Cholesterol Folate Urine WBC (Auto) Urine Creatinine Urine Total Protein Vancomycin Trough 05/06/19 05/06/19 05/06/19 04:45 05:33 12:30 WBC RBC Hgb Hct MCV MCH MCHC RDW Plt Count Lymph % (Auto) [place] % (Auto) Eos % (Auto) Lymph # [place] # Eos # Seg Neutrophils % Seg Neuts % (Manual) Lymphocytes % (Manual) Monocytes % (Manual) Eosinophils % (Manual) Nucleated RBC % Seg Neutrophils # Seg Neutrophils # Man Lymphocytes # (Manual) Monocytes # (Manual) Eosinophils # (Manual) PT INR APTT Fibrinogen POC ABG pH ABG pH POC ABG pCO2 POC ABG pO2 ABG pO2 ABG HCO3 ABG O2 Saturation ABG Base Excess ABG Hemoglobin Oxyhemoglobin Sodium 149 H Potassium Chloride Carbon Dioxide 31 H BUN 67 H Creatinine 3.2 H Glucose 125 H POC Glucose 117 H 116 H Uric Acid Calcium 7.5 L Phosphorus Magnesium Iron TIBC AST ALT Total Creatine Kinase CK-MB (CK-2) Troponin T NT-Pro-B Natriuret Pep Total Protein Albumin Triglycerides HDL Cholesterol Folate Urine WBC (Auto) Urine Creatinine Urine Total Protein Vancomycin Trough 05/06/19 05/06/19 05/07/19 18:34 23:16 05:22 WBC RBC Hgb Hct MCV MCH MCHC RDW Plt Count Lymph % (Auto) [place] % (Auto) Eos % (Auto) Lymph # [place] # Eos # Seg Neutrophils % Seg Neuts % (Manual) Lymphocytes % (Manual) Monocytes % (Manual) Eosinophils % (Manual) Nucleated RBC % Seg Neutrophils # Seg Neutrophils # Man Lymphocytes # (Manual) Monocytes # (Manual) Eosinophils # (Manual) PT INR APTT Fibrinogen POC ABG pH ABG pH POC ABG pCO2 POC ABG pO2 ABG pO2 ABG HCO3 ABG O2 Saturation ABG Base Excess ABG Hemoglobin Oxyhemoglobin Sodium Potassium Chloride Carbon Dioxide BUN Creatinine Glucose POC Glucose 128 H 143 H 166 H Uric Acid Calcium Phosphorus Magnesium Iron TIBC AST ALT Total Creatine Kinase CK-MB (CK-2) Troponin T NT-Pro-B Natriuret Pep Total Protein Albumin Triglycerides HDL Cholesterol Folate Urine WBC (Auto) Urine Creatinine Urine Total Protein Vancomycin Trough 05/07/19 05/07/19 05/07/19 06:33 07:03 09:35 WBC RBC Hgb Hct MCV MCH MCHC RDW Plt Count Lymph % (Auto) [place] % (Auto) Eos % (Auto) Lymph # [place] # Eos # Seg Neutrophils % Seg Neuts % (Manual) Lymphocytes % (Manual) Monocytes % (Manual) Eosinophils % (Manual) Nucleated RBC % Seg Neutrophils # Seg Neutrophils # Man Lymphocytes # (Manual) Monocytes # (Manual) Eosinophils # (Manual) PT INR APTT Fibrinogen POC ABG pH 7.263 L 7.288 L ABG pH POC ABG pCO2 POC ABG pO2 51 L 56 L ABG pO2 ABG HCO3 ABG O2 Saturation ABG Base Excess ABG Hemoglobin Oxyhemoglobin Sodium Potassium Chloride Carbon Dioxide BUN 76 H Creatinine 3.2 H Glucose 147 H POC Glucose Uric Acid Calcium 7.9 L Phosphorus Magnesium Iron TIBC AST ALT Total Creatine Kinase CK-MB (CK-2) Troponin T NT-Pro-B Natriuret Pep Total Protein Albumin Triglycerides HDL Cholesterol Folate Urine WBC (Auto) Urine Creatinine Urine Total Protein Vancomycin Trough 05/07/19 05/07/19 05/07/19 09:35 12:17 13:45 WBC 13.4 H RBC Hgb 11.6 L Hct MCV MCH 27 L MCHC 31 L RDW 17.5 H Plt Count Lymph % (Auto) [place] % (Auto) Eos % (Auto) Lymph # [place] # Eos # Seg Neutrophils % Seg Neuts % (Manual) Lymphocytes % (Manual) Monocytes % (Manual) Eosinophils % (Manual) Nucleated RBC % Seg Neutrophils # Seg Neutrophils # Man Lymphocytes # (Manual) Monocytes # (Manual) Eosinophils # (Manual) PT INR APTT Fibrinogen POC ABG pH ABG pH POC ABG pCO2 POC ABG pO2 ABG pO2 ABG HCO3 ABG O2 Saturation ABG Base Excess ABG Hemoglobin Oxyhemoglobin Sodium Potassium Chloride Carbon Dioxide BUN Creatinine Glucose POC Glucose 130 H Uric Acid 18.0 H Calcium Phosphorus Magnesium Iron TIBC AST ALT Total Creatine Kinase CK-MB (CK-2) Troponin T NT-Pro-B Natriuret Pep Total Protein Albumin Triglycerides HDL Cholesterol Folate Urine WBC (Auto) Urine Creatinine Urine Total Protein Vancomycin Trough 05/07/19 05/07/19 05/08/19 17:39 22:40 05:06 WBC RBC Hgb Hct MCV MCH MCHC RDW Plt Count Lymph % (Auto) [place] % (Auto) Eos % (Auto) Lymph # [place] # Eos # Seg Neutrophils % Seg Neuts % (Manual) Lymphocytes % (Manual) Monocytes % (Manual) Eosinophils % (Manual) Nucleated RBC % Seg Neutrophils # Seg Neutrophils # Man Lymphocytes # (Manual) Monocytes # (Manual) Eosinophils # (Manual) PT INR APTT Fibrinogen POC ABG pH ABG pH POC ABG pCO2 POC ABG pO2 ABG pO2 ABG HCO3 ABG O2 Saturation ABG Base Excess ABG Hemoglobin Oxyhemoglobin Sodium Potassium Chloride Carbon Dioxide BUN Creatinine Glucose POC Glucose 116 H 148 H Uric Acid Calcium Phosphorus Magnesium Iron TIBC AST ALT Total Creatine Kinase CK-MB (CK-2) Troponin T NT-Pro-B Natriuret Pep Total Protein Albumin Triglycerides HDL Cholesterol Folate Urine WBC (Auto) Urine Creatinine 292.8 H Urine Total Protein 269 H Vancomycin Trough 05/08/19 05/08/19 05/08/19 05:32 11:28 13:48 WBC RBC Hgb Hct MCV MCH MCHC RDW Plt Count Lymph % (Auto) [place] % (Auto) Eos % (Auto) Lymph # [place] # Eos # Seg Neutrophils % Seg Neuts % (Manual) Lymphocytes % (Manual) Monocytes % (Manual) Eosinophils % (Manual) Nucleated RBC % Seg Neutrophils # Seg Neutrophils # Man Lymphocytes # (Manual) Monocytes # (Manual) Eosinophils # (Manual) PT INR APTT Fibrinogen POC ABG pH ABG pH POC ABG pCO2 45.4 H POC ABG pO2 64 L ABG pO2 ABG HCO3 ABG O2 Saturation ABG Base Excess ABG Hemoglobin Oxyhemoglobin Sodium Potassium Chloride Carbon Dioxide BUN 73 H Creatinine 2.7 H Glucose 127 H POC Glucose 107 H Uric Acid Calcium 7.6 L Phosphorus Magnesium Iron TIBC AST ALT Total Creatine Kinase CK-MB (CK-2) Troponin T NT-Pro-B Natriuret Pep Total Protein Albumin Triglycerides HDL Cholesterol Folate Urine WBC (Auto) Urine Creatinine Urine Total Protein Vancomycin Trough 05/08/19 05/09/19 05/09/19 17:48 04:50 04:53 WBC RBC 3.07 L Hgb 8.5 L D Hct 29.3 L D MCV 96 H MCH MCHC 29 L RDW 18.1 H Plt Count Lymph % (Auto) [place] % (Auto) Eos % (Auto) Lymph # [place] # Eos # Seg Neutrophils % Seg Neuts % (Manual) Lymphocytes % (Manual) Monocytes % (Manual) Eosinophils % (Manual) Nucleated RBC % Seg Neutrophils # Seg Neutrophils # Man Lymphocytes # (Manual) Monocytes # (Manual) Eosinophils # (Manual) PT INR APTT Fibrinogen POC ABG pH 7.316 L ABG pH POC ABG pCO2 66.0 H POC ABG pO2 69 L ABG pO2 ABG HCO3 ABG O2 Saturation ABG Base Excess ABG Hemoglobin Oxyhemoglobin Sodium Potassium Chloride Carbon Dioxide BUN Creatinine Glucose POC Glucose 155 H Uric Acid Calcium Phosphorus Magnesium Iron TIBC AST ALT Total Creatine Kinase CK-MB (CK-2) Troponin T NT-Pro-B Natriuret Pep Total Protein Albumin Triglycerides HDL Cholesterol Folate Urine WBC (Auto) Urine Creatinine Urine Total Protein Vancomycin Trough 05/09/19 05/09/19 05/09/19 05:46 07:24 12:10 WBC RBC Hgb Hct MCV MCH MCHC RDW Plt Count Lymph % (Auto) [place] % (Auto) Eos % (Auto) Lymph # [place] # Eos # Seg Neutrophils % Seg Neuts % (Manual) Lymphocytes % (Manual) Monocytes % (Manual) Eosinophils % (Manual) Nucleated RBC % Seg Neutrophils # Seg Neutrophils # Man Lymphocytes # (Manual) Monocytes # (Manual) Eosinophils # (Manual) PT INR APTT Fibrinogen POC ABG pH ABG pH POC ABG pCO2 POC ABG pO2 ABG pO2 ABG HCO3 ABG O2 Saturation ABG Base Excess ABG Hemoglobin Oxyhemoglobin Sodium Potassium Chloride Carbon Dioxide BUN 73 H Creatinine 2.4 H Glucose 153 H POC Glucose 123 H 148 H Uric Acid Calcium 8.2 L Phosphorus Magnesium Iron TIBC AST 45 H ALT Total Creatine Kinase CK-MB (CK-2) Troponin T NT-Pro-B Natriuret Pep Total Protein 6.0 L Albumin 1.9 L Triglycerides HDL Cholesterol Folate Urine WBC (Auto) Urine Creatinine Urine Total Protein Vancomycin Trough 05/09/19 05/09/19 05/10/19 18:23 23:26 04:52 WBC RBC Hgb Hct MCV MCH MCHC RDW Plt Count Lymph % (Auto) [place] % (Auto) Eos % (Auto) Lymph # [place] # Eos # Seg Neutrophils % Seg Neuts % (Manual) Lymphocytes % (Manual) Monocytes % (Manual) Eosinophils % (Manual) Nucleated RBC % Seg Neutrophils # Seg Neutrophils # Man Lymphocytes # (Manual) Monocytes # (Manual) Eosinophils # (Manual) PT INR APTT Fibrinogen POC ABG pH 7.305 L ABG pH POC ABG pCO2 62.6 H POC ABG pO2 ABG pO2 ABG HCO3 ABG O2 Saturation ABG Base Excess ABG Hemoglobin Oxyhemoglobin Sodium Potassium Chloride Carbon Dioxide BUN Creatinine Glucose POC Glucose 147 H 121 H Uric Acid Calcium Phosphorus Magnesium Iron TIBC AST ALT Total Creatine Kinase CK-MB (CK-2) Troponin T NT-Pro-B Natriuret Pep Total Protein Albumin Triglycerides HDL Cholesterol Folate Urine WBC (Auto) Urine Creatinine Urine Total Protein Vancomycin Trough 05/10/19 05/10/19 05/10/19 05:00 05:00 05:50 WBC RBC Hgb 10.3 L Hct 33.7 L MCV MCH 27 L MCHC 31 L RDW 17.0 H Plt Count Lymph % (Auto) [place] % (Auto) Eos % (Auto) Lymph # [place] # Eos # Seg Neutrophils % Seg Neuts % (Manual) Lymphocytes % (Manual) Monocytes % (Manual) Eosinophils % (Manual) Nucleated RBC % Seg Neutrophils # Seg Neutrophils # Man Lymphocytes # (Manual) Monocytes # (Manual) Eosinophils # (Manual) PT INR APTT Fibrinogen POC ABG pH ABG pH POC ABG pCO2 POC ABG pO2 ABG pO2 ABG HCO3 ABG O2 Saturation ABG Base Excess ABG Hemoglobin Oxyhemoglobin Sodium 147 H Potassium Chloride Carbon Dioxide BUN 70 H Creatinine 2.6 H Glucose 155 H POC Glucose 158 H Uric Acid Calcium 8.2 L Phosphorus Magnesium Iron TIBC AST ALT Total Creatine Kinase CK-MB (CK-2) Troponin T NT-Pro-B Natriuret Pep Total Protein 6.1 L Albumin 2.5 L Triglycerides HDL Cholesterol Folate Urine WBC (Auto) Urine Creatinine Urine Total Protein Vancomycin Trough 05/10/19 05/11/19 05/11/19 13:14 07:26 11:40 WBC RBC Hgb Hct MCV MCH MCHC RDW Plt Count Lymph % (Auto) [place] % (Auto) Eos % (Auto) Lymph # [place] # Eos # Seg Neutrophils % Seg Neuts % (Manual) Lymphocytes % (Manual) Monocytes % (Manual) Eosinophils % (Manual) Nucleated RBC % Seg Neutrophils # Seg Neutrophils # Man Lymphocytes # (Manual) Monocytes # (Manual) Eosinophils # (Manual) PT INR APTT Fibrinogen POC ABG pH ABG pH POC ABG pCO2 48.0 H POC ABG pO2 58 L ABG pO2 ABG HCO3 ABG O2 Saturation ABG Base Excess ABG Hemoglobin Oxyhemoglobin Sodium 147 H Potassium Chloride 107.2 H Carbon Dioxide BUN 67 H Creatinine 2.6 H Glucose 121 H POC Glucose 159 H Uric Acid Calcium Phosphorus Magnesium Iron TIBC AST ALT Total Creatine Kinase CK-MB (CK-2) Troponin T NT-Pro-B Natriuret Pep Total Protein Albumin Triglycerides HDL Cholesterol Folate Urine WBC (Auto) Urine Creatinine Urine Total Protein Vancomycin Trough 05/11/19 05/11/19 05/12/19 18:13 23:46 04:40 WBC RBC Hgb Hct MCV MCH MCHC RDW Plt Count Lymph % (Auto) [place] % (Auto) Eos % (Auto) Lymph # [place] # Eos # Seg Neutrophils % Seg Neuts % (Manual) Lymphocytes % (Manual) Monocytes % (Manual) Eosinophils % (Manual) Nucleated RBC % Seg Neutrophils # Seg Neutrophils # Man Lymphocytes # (Manual) Monocytes # (Manual) Eosinophils # (Manual) PT INR APTT Fibrinogen POC ABG pH ABG pH 7.264 L POC ABG pCO2 POC ABG pO2 ABG pO2 66.8 L ABG HCO3 31.0 H ABG O2 Saturation 92.0 L ABG Base Excess ABG Hemoglobin 10.3 L Oxyhemoglobin 90.1 L Sodium Potassium Chloride Carbon Dioxide BUN Creatinine Glucose POC Glucose 120 H 121 H Uric Acid Calcium Phosphorus Magnesium Iron TIBC AST ALT Total Creatine Kinase CK-MB (CK-2) Troponin T NT-Pro-B Natriuret Pep Total Protein Albumin Triglycerides HDL Cholesterol Folate Urine WBC (Auto) Urine Creatinine Urine Total Protein Vancomycin Trough 05/12/19 05/12/19 05/12/19 04:45 04:45 11:14 WBC RBC Hgb 10.2 L Hct 32.4 L MCV MCH MCHC 31 L RDW 17.2 H Plt Count Lymph % (Auto) [place] % (Auto) Eos % (Auto) Lymph # [place] # Eos # Seg Neutrophils % Seg Neuts % (Manual) Lymphocytes % (Manual) Monocytes % (Manual) Eosinophils % (Manual) Nucleated RBC % Seg Neutrophils # Seg Neutrophils # Man Lymphocytes # (Manual) Monocytes # (Manual) Eosinophils # (Manual) PT INR APTT Fibrinogen POC ABG pH 7.284 L ABG pH POC ABG pCO2 67.8 H POC ABG pO2 ABG pO2 ABG HCO3 ABG O2 Saturation ABG Base Excess ABG Hemoglobin Oxyhemoglobin Sodium Potassium Chloride Carbon Dioxide BUN 63 H Creatinine 2.4 H Glucose 110 H POC Glucose Uric Acid Calcium Phosphorus Magnesium Iron TIBC AST ALT Total Creatine Kinase CK-MB (CK-2) Troponin T NT-Pro-B Natriuret Pep Total Protein Albumin Triglycerides HDL Cholesterol Folate Urine WBC (Auto) Urine Creatinine Urine Total Protein Vancomycin Trough 05/12/19 05/12/19 05/13/19 11:44 23:11 04:30 WBC RBC Hgb Hct MCV MCH MCHC RDW Plt Count Lymph % (Auto) [place] % (Auto) Eos % (Auto) Lymph # [place] # Eos # Seg Neutrophils % Seg Neuts % (Manual) Lymphocytes % (Manual) Monocytes % (Manual) Eosinophils % (Manual) Nucleated RBC % Seg Neutrophils # Seg Neutrophils # Man Lymphocytes # (Manual) Monocytes # (Manual) Eosinophils # (Manual) PT INR APTT Fibrinogen POC ABG pH ABG pH 7.288 L POC ABG pCO2 POC ABG pO2 ABG pO2 109.7 H ABG HCO3 30.9 H ABG O2 Saturation ABG Base Excess 3.2 H ABG Hemoglobin 9.6 L Oxyhemoglobin Sodium Potassium Chloride Carbon Dioxide BUN Creatinine Glucose POC Glucose 126 H 147 H Uric Acid Calcium Phosphorus Magnesium Iron TIBC AST ALT Total Creatine Kinase CK-MB (CK-2) Troponin T NT-Pro-B Natriuret Pep Total Protein Albumin Triglycerides HDL Cholesterol Folate Urine WBC (Auto) Urine Creatinine Urine Total Protein Vancomycin Trough 05/13/19 05/13/19 05/14/19 06:27 11:58 04:00 WBC RBC 3.16 L Hgb 9.3 L Hct 27.9 L MCV MCH MCHC RDW 17.1 H Plt Count Lymph % (Auto) [place] % (Auto) Eos % (Auto) Lymph # [place] # Eos # Seg Neutrophils % Seg Neuts % (Manual) Lymphocytes % (Manual) Monocytes % (Manual) Eosinophils % (Manual) Nucleated RBC % Seg Neutrophils # Seg Neutrophils # Man Lymphocytes # (Manual) Monocytes # (Manual) Eosinophils # (Manual) PT INR APTT Fibrinogen POC ABG pH ABG pH POC ABG pCO2 POC ABG pO2 ABG pO2 ABG HCO3 ABG O2 Saturation ABG Base Excess ABG Hemoglobin Oxyhemoglobin Sodium Potassium Chloride Carbon Dioxide BUN Creatinine Glucose POC Glucose 113 H 130 H Uric Acid Calcium Phosphorus Magnesium Iron TIBC AST ALT Total Creatine Kinase CK-MB (CK-2) Troponin T NT-Pro-B Natriuret Pep Total Protein Albumin Triglycerides HDL Cholesterol Folate Urine WBC (Auto) Urine Creatinine Urine Total Protein Vancomycin Trough 05/14/19 05/14/19 05/14/19 04:00 04:34 05:32 WBC RBC Hgb Hct MCV MCH MCHC RDW Plt Count Lymph % (Auto) [place] % (Auto) Eos % (Auto) Lymph # [place] # Eos # Seg Neutrophils % Seg Neuts % (Manual) Lymphocytes % (Manual) Monocytes % (Manual) Eosinophils % (Manual) Nucleated RBC % Seg Neutrophils # Seg Neutrophils # Man Lymphocytes # (Manual) Monocytes # (Manual) Eosinophils # (Manual) PT INR APTT Fibrinogen POC ABG pH 7.328 L ABG pH POC ABG pCO2 61.7 H POC ABG pO2 ABG pO2 ABG HCO3 ABG O2 Saturation ABG Base Excess ABG Hemoglobin Oxyhemoglobin Sodium 135 L D Potassium Chloride Carbon Dioxide BUN 57 H Creatinine 2.2 H Glucose 115 H POC Glucose 115 H Uric Acid Calcium 8.1 L Phosphorus Magnesium Iron TIBC AST ALT Total Creatine Kinase CK-MB (CK-2) Troponin T NT-Pro-B Natriuret Pep Total Protein Albumin Triglycerides HDL Cholesterol Folate Urine WBC (Auto) Urine Creatinine Urine Total Protein Vancomycin Trough 05/14/19 05/15/19 05/15/19 12:11 05:10 05:24 WBC RBC Hgb Hct MCV MCH MCHC RDW Plt Count Lymph % (Auto) [place] % (Auto) Eos % (Auto) Lymph # [place] # Eos # Seg Neutrophils % Seg Neuts % (Manual) Lymphocytes % (Manual) Monocytes % (Manual) Eosinophils % (Manual) Nucleated RBC % Seg Neutrophils # Seg Neutrophils # Man Lymphocytes # (Manual) Monocytes # (Manual) Eosinophils # (Manual) PT INR APTT Fibrinogen POC ABG pH ABG pH 7.342 L POC ABG pCO2 POC ABG pO2 ABG pO2 79.1 L ABG HCO3 28.2 H ABG O2 Saturation ABG Base Excess ABG Hemoglobin 7.0 L Oxyhemoglobin 94.4 L Sodium Potassium Chloride Carbon Dioxide BUN Creatinine Glucose POC Glucose 110 H 116 H Uric Acid Calcium Phosphorus Magnesium Iron TIBC AST ALT Total Creatine Kinase CK-MB (CK-2) Troponin T NT-Pro-B Natriuret Pep Total Protein Albumin Triglycerides HDL Cholesterol Folate Urine WBC (Auto) Urine Creatinine Urine Total Protein Vancomycin Trough 05/15/19 05/15/19 05/16/19 09:00 18:12 04:50 WBC RBC Hgb Hct MCV MCH MCHC RDW Plt Count Lymph % (Auto) [place] % (Auto) Eos % (Auto) Lymph # [place] # Eos # Seg Neutrophils % Seg Neuts % (Manual) Lymphocytes % (Manual) Monocytes % (Manual) Eosinophils % (Manual) Nucleated RBC % Seg Neutrophils # Seg Neutrophils # Man Lymphocytes # (Manual) Monocytes # (Manual) Eosinophils # (Manual) PT INR APTT Fibrinogen POC ABG pH ABG pH 7.250 L POC ABG pCO2 POC ABG pO2 ABG pO2 76.4 L ABG HCO3 ABG O2 Saturation 94.6 L ABG Base Excess -3.1 L ABG Hemoglobin 9.7 L Oxyhemoglobin 92.4 L Sodium Potassium Chloride Carbon Dioxide BUN Creatinine Glucose POC Glucose 110 H Uric Acid Calcium Phosphorus Magnesium Iron TIBC AST ALT Total Creatine Kinase CK-MB (CK-2) Troponin T NT-Pro-B Natriuret Pep Total Protein Albumin Triglycerides HDL Cholesterol Folate Urine WBC (Auto) Urine Creatinine Urine Total Protein Vancomycin Trough 20.5 H 05/16/19 05/16/19 05/17/19 05:50 05:50 04:20 WBC RBC 3.36 L 3.44 L Hgb 9.4 L 9.3 L Hct 29.1 L 29.7 L MCV MCH 27 L MCHC 31 L RDW 17.6 H 17.6 H Plt Count Lymph % (Auto) [place] % (Auto) Eos % (Auto) Lymph # [place] # Eos # Seg Neutrophils % Seg Neuts % (Manual) 77.0 H Lymphocytes % (Manual) 5.0 L Monocytes % (Manual) Eosinophils % (Manual) 10.0 H Nucleated RBC % Seg Neutrophils # Seg Neutrophils # Man Lymphocytes # (Manual) 0.5 L Monocytes # (Manual) Eosinophils # (Manual) 0.9 H PT INR APTT Fibrinogen POC ABG pH ABG pH POC ABG pCO2 POC ABG pO2 ABG pO2 ABG HCO3 ABG O2 Saturation ABG Base Excess ABG Hemoglobin Oxyhemoglobin Sodium Potassium Chloride Carbon Dioxide BUN 83 H Creatinine 4.4 H D Glucose 118 H POC Glucose Uric Acid Calcium Phosphorus Magnesium Iron TIBC AST ALT Total Creatine Kinase CK-MB (CK-2) Troponin T NT-Pro-B Natriuret Pep Total Protein Albumin Triglycerides HDL Cholesterol Folate Urine WBC (Auto) Urine Creatinine Urine Total Protein Vancomycin Trough 05/17/19 05/17/19 05/18/19 04:30 Unknown 01:50 WBC RBC 3.49 L Hgb 9.4 L Hct 30.0 L MCV MCH 27 L MCHC 31 L RDW 17.8 H Plt Count Lymph % (Auto) 7.9 L [place] % (Auto) 15.4 H Eos % (Auto) 6.3 H Lymph # 0.7 L [place] # 1.4 H Eos # 0.6 H Seg Neutrophils % 70.2 H Seg Neuts % (Manual) Lymphocytes % (Manual) Monocytes % (Manual) Eosinophils % (Manual) Nucleated RBC % Seg Neutrophils # Seg Neutrophils # Man Lymphocytes # (Manual) Monocytes # (Manual) Eosinophils # (Manual) PT INR APTT Fibrinogen POC ABG pH ABG pH 7.272 L POC ABG pCO2 POC ABG pO2 ABG pO2 75.7 L ABG HCO3 ABG O2 Saturation 93.8 L ABG Base Excess -3.0 L ABG Hemoglobin 7.8 L Oxyhemoglobin 91.6 L Sodium Potassium 5.2 H Chloride Carbon Dioxide BUN 96 H Creatinine 5.7 H Glucose 112 H POC Glucose Uric Acid Calcium Phosphorus Magnesium Iron TIBC AST ALT Total Creatine Kinase CK-MB (CK-2) Troponin T NT-Pro-B Natriuret Pep Total Protein Albumin Triglycerides 173 H HDL Cholesterol Folate Urine WBC (Auto) Urine Creatinine Urine Total Protein Vancomycin Trough 05/18/19 05/18/1919 01:50 04:41 05:24 WBC RBC Hgb Hct MCV MCH MCHC RDW Plt Count Lymph % (Auto) [place] % (Auto) Eos % (Auto) Lymph # [place] # Eos # Seg Neutrophils % Seg Neuts % (Manual) Lymphocytes % (Manual) Monocytes % (Manual) Eosinophils % (Manual) Nucleated RBC % Seg Neutrophils # Seg Neutrophils # Man Lymphocytes # (Manual) Monocytes # (Manual) Eosinophils # (Manual) PT INR APTT Fibrinogen POC ABG pH 7.260 L ABG pH POC ABG pCO2 54.9 H POC ABG pO2 ABG pO2 ABG HCO3 ABG O2 Saturation ABG Base Excess ABG Hemoglobin Oxyhemoglobin Sodium Potassium 5.6 H Chloride Carbon Dioxide BUN 104 H Creatinine 6.6 H Glucose 107 H POC Glucose 106 H Uric Acid Calcium Phosphorus Magnesium Iron TIBC AST ALT Total Creatine Kinase CK-MB (CK-2) Troponin T NT-Pro-B Natriuret Pep Total Protein Albumin Triglycerides HDL Cholesterol Folate Urine WBC (Auto) Urine Creatinine Urine Total Protein Vancomycin Trough 05/18/19 05/18/19 05/19/19 11:34 23:26 04:06 WBC RBC 3.22 L Hgb 8.8 L Hct 27.3 L MCV MCH 27 L MCHC RDW 17.5 H Plt Count Lymph % (Auto) [place] % (Auto) Eos % (Auto) Lymph # [place] # Eos # Seg Neutrophils % Seg Neuts % (Manual) 74.0 H Lymphocytes % (Manual) 4.0 L Monocytes % (Manual) 11.0 H Eosinophils % (Manual) 7.0 H Nucleated RBC % 1.0 H Seg Neutrophils # Seg Neutrophils # Man Lymphocytes # (Manual) 0.3 L Monocytes # (Manual) 0.9 H Eosinophils # (Manual) 0.6 H PT INR APTT Fibrinogen POC ABG pH ABG pH POC ABG pCO2 POC ABG pO2 ABG pO2 ABG HCO3 ABG O2 Saturation ABG Base Excess ABG Hemoglobin Oxyhemoglobin Sodium Potassium Chloride Carbon Dioxide BUN Creatinine Glucose POC Glucose 152 H 112 H Uric Acid Calcium Phosphorus Magnesium Iron TIBC AST ALT Total Creatine Kinase CK-MB (CK-2) Troponin T NT-Pro-B Natriuret Pep Total Protein Albumin Triglycerides HDL Cholesterol Folate Urine WBC (Auto) Urine Creatinine Urine Total Protein Vancomycin Trough 05/19/19 05/19/19 05/20/19 04:06 06:00 04:00 WBC RBC 3.40 L Hgb 9.2 L Hct 28.6 L MCV MCH 27 L MCHC RDW 17.6 H Plt Count Lymph % (Auto) [place] % (Auto) Eos % (Auto) Lymph # [place] # Eos # Seg Neutrophils % Seg Neuts % (Manual) Lymphocytes % (Manual) 11.0 L Monocytes % (Manual) Eosinophils % (Manual) 14.0 H Nucleated RBC % Seg Neutrophils # Seg Neutrophils # Man Lymphocytes # (Manual) 1.1 L Monocytes # (Manual) Eosinophils # (Manual) 1.4 H PT INR APTT Fibrinogen POC ABG pH ABG pH 7.315 L POC ABG pCO2 POC ABG pO2 ABG pO2 ABG HCO3 ABG O2 Saturation ABG Base Excess ABG Hemoglobin 6.7 L Oxyhemoglobin 94.1 L Sodium Potassium 5.2 H Chloride Carbon Dioxide 21 L BUN 110 H Creatinine 7.2 H Glucose POC Glucose Uric Acid Calcium 8.3 L Phosphorus Magnesium Iron TIBC AST ALT Total Creatine Kinase CK-MB (CK-2) Troponin T NT-Pro-B Natriuret Pep Total Protein Albumin Triglycerides HDL Cholesterol Folate Urine WBC (Auto) Urine Creatinine Urine Total Protein Vancomycin Trough 05/20/19 05/20/19 05/20/19 04:00 05:48 12:00 WBC RBC Hgb Hct MCV MCH MCHC RDW Plt Count Lymph % (Auto) [place] % (Auto) Eos % (Auto) Lymph # [place] # Eos # Seg Neutrophils % Seg Neuts % (Manual) Lymphocytes % (Manual) Monocytes % (Manual) Eosinophils % (Manual) Nucleated RBC % Seg Neutrophils # Seg Neutrophils # Man Lymphocytes # (Manual) Monocytes # (Manual) Eosinophils # (Manual) PT INR APTT Fibrinogen POC ABG pH ABG pH 7.281 L POC ABG pCO2 POC ABG pO2 ABG pO2 78.7 L ABG HCO3 ABG O2 Saturation 94.5 L ABG Base Excess -3.0 L ABG Hemoglobin 9.9 L Oxyhemoglobin 92.5 L Sodium 136 L Potassium 5.7 H Chloride 96.3 L Carbon Dioxide BUN 125 H Creatinine 8.3 H Glucose 106 H POC Glucose Uric Acid Calcium Phosphorus Magnesium Iron TIBC AST ALT Total Creatine Kinase CK-MB (CK-2) Troponin T NT-Pro-B Natriuret Pep Total Protein Albumin Triglycerides HDL Cholesterol Folate Urine WBC (Auto) 26.0 H Urine Creatinine Urine Total Protein Vancomycin Trough 05/21/19 05/21/19 05/21/19 04:33 05:20 Unknown WBC RBC 3.38 L Hgb 9.1 L Hct 28.5 L MCV MCH 27 L MCHC RDW 17.4 H Plt Count Lymph % (Auto) [place] % (Auto) Eos % (Auto) Lymph # [place] # Eos # Seg Neutrophils % Seg Neuts % (Manual) 71.0 H Lymphocytes % (Manual) 1.0 L Monocytes % (Manual) 11.0 H Eosinophils % (Manual) 6.0 H Nucleated RBC % Seg Neutrophils # Seg Neutrophils # Man Lymphocytes # (Manual) 0.1 L Monocytes # (Manual) 1.0 H Eosinophils # (Manual) 0.6 H PT INR APTT Fibrinogen POC ABG pH 7.315 L ABG pH POC ABG pCO2 57.8 H POC ABG pO2 68 L ABG pO2 ABG HCO3 ABG O2 Saturation ABG Base Excess ABG Hemoglobin Oxyhemoglobin Sodium Potassium Chloride 96.3 L Carbon Dioxide BUN 102 H Creatinine 7.0 H Glucose 103 H POC Glucose Uric Acid Calcium Phosphorus Magnesium Iron TIBC AST ALT Total Creatine Kinase CK-MB (CK-2) Troponin T NT-Pro-B Natriuret Pep Total Protein Albumin Triglycerides HDL Cholesterol Folate Urine WBC (Auto) Urine Creatinine Urine Total Protein Vancomycin Trough 05/22/19 05/22/19 05/22/19 03:54 06:25 06:25 WBC RBC 3.22 L Hgb 8.6 L Hct 27.0 L MCV MCH 27 L MCHC RDW 17.5 H Plt Count Lymph % (Auto) [place] % (Auto) 16.2 H Eos % (Auto) 10.8 H Lymph # [place] # 1.3 H Eos # 0.9 H Seg Neutrophils % Seg Neuts % (Manual) Lymphocytes % (Manual) 10.0 L Monocytes % (Manual) 13.0 H Eosinophils % (Manual) 8.0 H Nucleated RBC % Seg Neutrophils # Seg Neutrophils # Man Lymphocytes # (Manual) 0.9 L Monocytes # (Manual) 1.1 H Eosinophils # (Manual) 0.7 H PT INR APTT Fibrinogen POC ABG pH 7.313 L ABG pH POC ABG pCO2 55.0 H POC ABG pO2 ABG pO2 ABG HCO3 ABG O2 Saturation ABG Base Excess ABG Hemoglobin Oxyhemoglobin Sodium 135 L Potassium Chloride 94.3 L Carbon Dioxide BUN 117 H Creatinine 7.8 H Glucose POC Glucose Uric Acid Calcium 8.2 L Phosphorus Magnesium Iron TIBC AST ALT Total Creatine Kinase CK-MB (CK-2) Troponin T NT-Pro-B Natriuret Pep Total Protein Albumin Triglycerides HDL Cholesterol Folate Urine WBC (Auto) Urine Creatinine Urine Total Protein Vancomycin Trough 05/23/19 05/24/19 05/24/19 05:21 05:00 05:00 WBC RBC 3.18 L Hgb 8.5 L Hct 26.7 L MCV MCH 27 L MCHC RDW 17.9 H Plt Count Lymph % (Auto) [place] % (Auto) Eos % (Auto) Lymph # [place] # Eos # Seg Neutrophils % Seg Neuts % (Manual) Lymphocytes % (Manual) Monocytes % (Manual) Eosinophils % (Manual) Nucleated RBC % Seg Neutrophils # Seg Neutrophils # Man Lymphocytes # (Manual) Monocytes # (Manual) Eosinophils # (Manual) PT INR APTT Fibrinogen POC ABG pH ABG pH POC ABG pCO2 49.7 H POC ABG pO2 73 L ABG pO2 ABG HCO3 ABG O2 Saturation ABG Base Excess ABG Hemoglobin Oxyhemoglobin Sodium Potassium Chloride 95.7 L Carbon Dioxide BUN 97 H Creatinine 6.5 H Glucose POC Glucose Uric Acid Calcium 8.0 L Phosphorus Magnesium Iron TIBC AST ALT Total Creatine Kinase CK-MB (CK-2) Troponin T NT-Pro-B Natriuret Pep Total Protein Albumin Triglycerides HDL Cholesterol Folate Urine WBC (Auto) Urine Creatinine Urine Total Protein Vancomycin Trough 05/24/19 05/25/19 05/25/19 06:17 04:22 15:45 WBC RBC 2.98 L Hgb 8.1 L Hct 24.9 L MCV MCH 27 L MCHC RDW 17.8 H Plt Count Lymph % (Auto) [place] % (Auto) Eos % (Auto) Lymph # [place] # Eos # Seg Neutrophils % Seg Neuts % (Manual) Lymphocytes % (Manual) Monocytes % (Manual) Eosinophils % (Manual) Nucleated RBC % Seg Neutrophils # Seg Neutrophils # Man Lymphocytes # (Manual) Monocytes # (Manual) Eosinophils # (Manual) PT INR APTT Fibrinogen POC ABG pH 7.330 L 7.313 L ABG pH POC ABG pCO2 52.5 H 51.1 H POC ABG pO2 77 L ABG pO2 ABG HCO3 ABG O2 Saturation ABG Base Excess ABG Hemoglobin Oxyhemoglobin Sodium Potassium Chloride Carbon Dioxide BUN Creatinine Glucose POC Glucose Uric Acid Calcium Phosphorus Magnesium Iron TIBC AST ALT Total Creatine Kinase CK-MB (CK-2) Troponin T NT-Pro-B Natriuret Pep Total Protein Albumin Triglycerides HDL Cholesterol Folate Urine WBC (Auto) Urine Creatinine Urine Total Protein Vancomycin Trough 05/25/19 05/26/19 05/26/19 15:45 04:13 05:00 WBC RBC 3.10 L Hgb 8.4 L Hct 26.0 L MCV MCH 27 L MCHC RDW 17.4 H Plt Count Lymph % (Auto) [place] % (Auto) Eos % (Auto) Lymph # [place] # Eos # Seg Neutrophils % Seg Neuts % (Manual) Lymphocytes % (Manual) Monocytes % (Manual) Eosinophils % (Manual) Nucleated RBC % Seg Neutrophils # Seg Neutrophils # Man Lymphocytes # (Manual) Monocytes # (Manual) Eosinophils # (Manual) PT INR APTT Fibrinogen POC ABG pH 7.295 L ABG pH POC ABG pCO2 56.5 H POC ABG pO2 63 L ABG pO2 ABG HCO3 ABG O2 Saturation ABG Base Excess ABG Hemoglobin Oxyhemoglobin Sodium 136 L Potassium Chloride 96.8 L Carbon Dioxide BUN 83 H Creatinine 5.9 H Glucose POC Glucose Uric Acid Calcium 7.6 L Phosphorus Magnesium Iron TIBC AST ALT Total Creatine Kinase CK-MB (CK-2) Troponin T NT-Pro-B Natriuret Pep Total Protein Albumin Triglycerides HDL Cholesterol Folate Urine WBC (Auto) Urine Creatinine Urine Total Protein Vancomycin Trough 05/26/19 05/27/19 05/28/19 05:00 04:48 04:47 WBC RBC Hgb Hct MCV MCH MCHC RDW Plt Count Lymph % (Auto) [place] % (Auto) Eos % (Auto) Lymph # [place] # Eos # Seg Neutrophils % Seg Neuts % (Manual) Lymphocytes % (Manual) Monocytes % (Manual) Eosinophils % (Manual) Nucleated RBC % Seg Neutrophils # Seg Neutrophils # Man Lymphocytes # (Manual) Monocytes # (Manual) Eosinophils # (Manual) PT INR APTT Fibrinogen POC ABG pH 7.323 L ABG pH 7.284 L POC ABG pCO2 56.2 H POC ABG pO2 ABG pO2 71.6 L ABG HCO3 ABG O2 Saturation 92.0 L ABG Base Excess ABG Hemoglobin 7.7 L Oxyhemoglobin 89.9 L Sodium 136 L Potassium Chloride 95.3 L Carbon Dioxide BUN 96 H Creatinine 6.5 H Glucose 108 H POC Glucose Uric Acid Calcium 7.6 L Phosphorus Magnesium Iron TIBC AST ALT Total Creatine Kinase CK-MB (CK-2) Troponin T NT-Pro-B Natriuret Pep Total Protein Albumin Triglycerides HDL Cholesterol Folate Urine WBC (Auto) Urine Creatinine Urine Total Protein Vancomycin Trough 05/28/19 05/29/19 05/29/19 12:30 12:47 23:44 WBC RBC Hgb Hct MCV MCH MCHC RDW Plt Count Lymph % (Auto) [place] % (Auto) Eos % (Auto) Lymph # [place] # Eos # Seg Neutrophils % Seg Neuts % (Manual) Lymphocytes % (Manual) Monocytes % (Manual) Eosinophils % (Manual) Nucleated RBC % Seg Neutrophils # Seg Neutrophils # Man Lymphocytes # (Manual) Monocytes # (Manual) Eosinophils # (Manual) PT INR APTT Fibrinogen POC ABG pH ABG pH POC ABG pCO2 POC ABG pO2 ABG pO2 ABG HCO3 ABG O2 Saturation ABG Base Excess ABG Hemoglobin Oxyhemoglobin Sodium 135 L Potassium Chloride 95.3 L Carbon Dioxide BUN 82 H Creatinine 6.0 H Glucose POC Glucose 136 H 159 H Uric Acid Calcium 7.5 L Phosphorus Magnesium Iron TIBC AST ALT Total Creatine Kinase CK-MB (CK-2) Troponin T NT-Pro-B Natriuret Pep Total Protein Albumin Triglycerides HDL Cholesterol Folate Urine WBC (Auto) Urine Creatinine Urine Total Protein Vancomycin Trough 05/30/19 05/30/19 05/30/19 04:30 05:38 12:00 WBC RBC 3.01 L Hgb 8.2 L Hct 25.3 L MCV MCH 27 L MCHC RDW 17.5 H Plt Count Lymph % (Auto) [place] % (Auto) Eos % (Auto) Lymph # [place] # Eos # Seg Neutrophils % Seg Neuts % (Manual) 80.0 H Lymphocytes % (Manual) 10.0 L Monocytes % (Manual) Eosinophils % (Manual) Nucleated RBC % Seg Neutrophils # Seg Neutrophils # Man 8.0 H Lymphocytes # (Manual) 1.0 L Monocytes # (Manual) Eosinophils # (Manual) PT INR APTT Fibrinogen POC ABG pH ABG pH POC ABG pCO2 POC ABG pO2 73 L ABG pO2 ABG HCO3 ABG O2 Saturation ABG Base Excess ABG Hemoglobin Oxyhemoglobin Sodium Potassium Chloride Carbon Dioxide BUN Creatinine Glucose POC Glucose 166 H Uric Acid Calcium Phosphorus Magnesium Iron TIBC AST ALT Total Creatine Kinase CK-MB (CK-2) Troponin T NT-Pro-B Natriuret Pep Total Protein Albumin Triglycerides HDL Cholesterol Folate Urine WBC (Auto) Urine Creatinine Urine Total Protein Vancomycin Trough 05/30/19 05/31/19 05/31/19 23:45 04:07 13:04 WBC 14.3 H RBC 2.88 L Hgb 7.7 L Hct 23.9 L MCV 83 L MCH 27 L MCHC RDW 17.8 H Plt Count Lymph % (Auto) [place] % (Auto) Eos % (Auto) Lymph # [place] # Eos # Seg Neutrophils % Seg Neuts % (Manual) 83.0 H Lymphocytes % (Manual) 11.0 L Monocytes % (Manual) Eosinophils % (Manual) Nucleated RBC % Seg Neutrophils # Seg Neutrophils # Man 11.9 H Lymphocytes # (Manual) Monocytes # (Manual) 0.9 H Eosinophils # (Manual) PT INR APTT Fibrinogen POC ABG pH ABG pH POC ABG pCO2 47.4 H POC ABG pO2 ABG pO2 ABG HCO3 ABG O2 Saturation ABG Base Excess ABG Hemoglobin Oxyhemoglobin Sodium Potassium Chloride Carbon Dioxide BUN Creatinine Glucose POC Glucose 209 H Uric Acid Calcium Phosphorus Magnesium Iron TIBC AST ALT Total Creatine Kinase CK-MB (CK-2) Troponin T NT-Pro-B Natriuret Pep Total Protein Albumin Triglycerides HDL Cholesterol Folate Urine WBC (Auto) Urine Creatinine Urine Total Protein Vancomycin Trough 05/31/19 05/31/19 06/01/19 13:04 16:42 00:15 WBC RBC Hgb Hct MCV MCH MCHC RDW Plt Count Lymph % (Auto) [place] % (Auto) Eos % (Auto) Lymph # [place] # Eos # Seg Neutrophils % Seg Neuts % (Manual) Lymphocytes % (Manual) Monocytes % (Manual) Eosinophils % (Manual) Nucleated RBC % Seg Neutrophils # Seg Neutrophils # Man Lymphocytes # (Manual) Monocytes # (Manual) Eosinophils # (Manual) PT INR APTT Fibrinogen POC ABG pH ABG pH POC ABG pCO2 POC ABG pO2 ABG pO2 ABG HCO3 ABG O2 Saturation ABG Base Excess ABG Hemoglobin Oxyhemoglobin Sodium 129 L Potassium Chloride 88.6 L Carbon Dioxide 19 L BUN 117 H Creatinine 6.7 H Glucose 205 H POC Glucose 228 H 223 H Uric Acid Calcium 7.4 L Phosphorus 7.40 H Magnesium Iron TIBC AST 58 H ALT 149 H Total Creatine Kinase CK-MB (CK-2) Troponin T NT-Pro-B Natriuret Pep Total Protein 6.0 L Albumin 2.5 L Triglycerides HDL Cholesterol Folate Urine WBC (Auto) Urine Creatinine Urine Total Protein Vancomycin Trough 06/01/19 06/01/19 06/01/19 04:33 05:27 12:31 WBC RBC Hgb Hct MCV MCH MCHC RDW Plt Count Lymph % (Auto) [place] % (Auto) Eos % (Auto) Lymph # [place] # Eos # Seg Neutrophils % Seg Neuts % (Manual) Lymphocytes % (Manual) Monocytes % (Manual) Eosinophils % (Manual) Nucleated RBC % Seg Neutrophils # Seg Neutrophils # Man Lymphocytes # (Manual) Monocytes # (Manual) Eosinophils # (Manual) PT INR APTT Fibrinogen POC ABG pH ABG pH POC ABG pCO2 POC ABG pO2 ABG pO2 56.9 L ABG HCO3 ABG O2 Saturation 85.9 L ABG Base Excess ABG Hemoglobin 8.1 L Oxyhemoglobin 83.6 L Sodium Potassium Chloride Carbon Dioxide BUN Creatinine Glucose POC Glucose 183 H 217 H Uric Acid Calcium Phosphorus Magnesium Iron TIBC AST ALT Total Creatine Kinase CK-MB (CK-2) Troponin T NT-Pro-B Natriuret Pep Total Protein Albumin Triglycerides HDL Cholesterol Folate Urine WBC (Auto) Urine Creatinine Urine Total Protein Vancomycin Trough 06/01/19 06/02/19 06/02/19 18:20 00:00 05:33 WBC RBC Hgb Hct MCV MCH MCHC RDW Plt Count Lymph % (Auto) [place] % (Auto) Eos % (Auto) Lymph # [place] # Eos # Seg Neutrophils % Seg Neuts % (Manual) Lymphocytes % (Manual) Monocytes % (Manual) Eosinophils % (Manual) Nucleated RBC % Seg Neutrophils # Seg Neutrophils # Man Lymphocytes # (Manual) Monocytes # (Manual) Eosinophils # (Manual) PT INR APTT Fibrinogen POC ABG pH ABG pH POC ABG pCO2 POC ABG pO2 ABG pO2 ABG HCO3 ABG O2 Saturation ABG Base Excess ABG Hemoglobin Oxyhemoglobin Sodium Potassium Chloride Carbon Dioxide BUN Creatinine Glucose POC Glucose 265 H 279 H 259 H Uric Acid Calcium Phosphorus Magnesium Iron TIBC AST ALT Total Creatine Kinase CK-MB (CK-2) Troponin T NT-Pro-B Natriuret Pep Total Protein Albumin Triglycerides HDL Cholesterol Folate Urine WBC (Auto) Urine Creatinine Urine Total Protein Vancomycin Trough 06/02/19 06/02/19 06/02/19 11:06 11:06 11:42 WBC 13.1 H RBC 2.92 L Hgb 7.9 L Hct 24.4 L MCV MCH 27 L MCHC RDW 17.4 H Plt Count Lymph % (Auto) [place] % (Auto) Eos % (Auto) Lymph # [place] # Eos # Seg Neutrophils % Seg Neuts % (Manual) 78.0 H Lymphocytes % (Manual) 12.0 L Monocytes % (Manual) 10.0 H Eosinophils % (Manual) Nucleated RBC % Seg Neutrophils # Seg Neutrophils # Man 10.2 H Lymphocytes # (Manual) Monocytes # (Manual) 1.3 H Eosinophils # (Manual) PT INR APTT Fibrinogen POC ABG pH ABG pH POC ABG pCO2 POC ABG pO2 ABG pO2 ABG HCO3 ABG O2 Saturation ABG Base Excess ABG Hemoglobin Oxyhemoglobin Sodium 135 L Potassium Chloride 94.7 L Carbon Dioxide 21 L BUN 107 H Creatinine 4.5 H Glucose 286 H POC Glucose 263 H Uric Acid Calcium 7.9 L Phosphorus 6.30 H Magnesium Iron TIBC AST ALT 104 H Total Creatine Kinase CK-MB (CK-2) Troponin T NT-Pro-B Natriuret Pep Total Protein 6.0 L Albumin 2.7 L Triglycerides HDL Cholesterol Folate Urine WBC (Auto) Urine Creatinine Urine Total Protein Vancomycin Trough 06/02/19 06/02/19 06/03/19 18:17 23:55 05:30 WBC RBC Hgb Hct MCV MCH MCHC RDW Plt Count Lymph % (Auto) [place] % (Auto) Eos % (Auto) Lymph # [place] # Eos # Seg Neutrophils % Seg Neuts % (Manual) Lymphocytes % (Manual) Monocytes % (Manual) Eosinophils % (Manual) Nucleated RBC % Seg Neutrophils # Seg Neutrophils # Man Lymphocytes # (Manual) Monocytes # (Manual) Eosinophils # (Manual) PT INR APTT Fibrinogen POC ABG pH ABG pH POC ABG pCO2 POC ABG pO2 ABG pO2 ABG HCO3 ABG O2 Saturation ABG Base Excess ABG Hemoglobin Oxyhemoglobin Sodium Potassium Chloride 95.1 L Carbon Dioxide 21 L BUN 119 H Creatinine 4.1 H Glucose 330 H POC Glucose 276 H 244 H Uric Acid Calcium 8.1 L Phosphorus Magnesium Iron TIBC AST ALT 98 H Total Creatine Kinase CK-MB (CK-2) Troponin T NT-Pro-B Natriuret Pep Total Protein 5.8 L Albumin 2.8 L Triglycerides HDL Cholesterol Folate Urine WBC (Auto) Urine Creatinine Urine Total Protein Vancomycin Trough 06/03/19 06/03/19 06/03/19 05:30 06:04 09:42 WBC 12.8 H RBC 3.01 L Hgb 8.2 L Hct 25.4 L MCV MCH 27 L MCHC RDW 17.5 H Plt Count Lymph % (Auto) [place] % (Auto) Eos % (Auto) Lymph # [place] # Eos # Seg Neutrophils % Seg Neuts % (Manual) 78.0 H Lymphocytes % (Manual) 10.0 L Monocytes % (Manual) 12.0 H Eosinophils % (Manual) Nucleated RBC % Seg Neutrophils # Seg Neutrophils # Man 10.0 H Lymphocytes # (Manual) Monocytes # (Manual) 1.5 H Eosinophils # (Manual) PT INR APTT Fibrinogen POC ABG pH ABG pH POC ABG pCO2 POC ABG pO2 ABG pO2 ABG HCO3 ABG O2 Saturation ABG Base Excess ABG Hemoglobin Oxyhemoglobin Sodium Potassium Chloride Carbon Dioxide BUN 106 H Creatinine Glucose POC Glucose 254 H Uric Acid Calcium Phosphorus Magnesium Iron TIBC AST ALT Total Creatine Kinase CK-MB (CK-2) Troponin T NT-Pro-B Natriuret Pep Total Protein Albumin Triglycerides HDL Cholesterol Folate Urine WBC (Auto) Urine Creatinine Urine Total Protein Vancomycin Trough 06/03/19 06/03/19 06/03/19 12:52 17:25 23:37 WBC RBC Hgb Hct MCV MCH MCHC RDW Plt Count Lymph % (Auto) [place] % (Auto) Eos % (Auto) Lymph # [place] # Eos # Seg Neutrophils % Seg Neuts % (Manual) Lymphocytes % (Manual) Monocytes % (Manual) Eosinophils % (Manual) Nucleated RBC % Seg Neutrophils # Seg Neutrophils # Man Lymphocytes # (Manual) Monocytes # (Manual) Eosinophils # (Manual) PT INR APTT Fibrinogen POC ABG pH ABG pH POC ABG pCO2 POC ABG pO2 ABG pO2 ABG HCO3 ABG O2 Saturation ABG Base Excess ABG Hemoglobin Oxyhemoglobin Sodium Potassium Chloride Carbon Dioxide BUN Creatinine Glucose POC Glucose 274 H 285 H 310 H Uric Acid Calcium Phosphorus Magnesium Iron TIBC AST ALT Total Creatine Kinase CK-MB (CK-2) Troponin T NT-Pro-B Natriuret Pep Total Protein Albumin Triglycerides HDL Cholesterol Folate Urine WBC (Auto) Urine Creatinine Urine Total Protein Vancomycin Trough 06/04/19 06/04/19 06/04/19 04:57 05:03 11:50 WBC RBC Hgb Hct MCV MCH MCHC RDW Plt Count Lymph % (Auto) [place] % (Auto) Eos % (Auto) Lymph # [place] # Eos # Seg Neutrophils % Seg Neuts % (Manual) Lymphocytes % (Manual) Monocytes % (Manual) Eosinophils % (Manual) Nucleated RBC % Seg Neutrophils # Seg Neutrophils # Man Lymphocytes # (Manual) Monocytes # (Manual) Eosinophils # (Manual) PT INR APTT Fibrinogen POC ABG pH 7.488 H ABG pH POC ABG pCO2 POC ABG pO2 ABG pO2 ABG HCO3 ABG O2 Saturation ABG Base Excess ABG Hemoglobin Oxyhemoglobin Sodium Potassium Chloride Carbon Dioxide BUN Creatinine Glucose POC Glucose 275 H 279 H Uric Acid Calcium Phosphorus Magnesium Iron TIBC AST ALT Total Creatine Kinase CK-MB (CK-2) Troponin T NT-Pro-B Natriuret Pep Total Protein Albumin Triglycerides HDL Cholesterol Folate Urine WBC (Auto) Urine Creatinine Urine Total Protein Vancomycin Trough 06/04/19 06/04/19 06/04/19 18:32 22:03 23:55 WBC RBC Hgb Hct MCV MCH MCHC RDW Plt Count Lymph % (Auto) [place] % (Auto) Eos % (Auto) Lymph # [place] # Eos # Seg Neutrophils % Seg Neuts % (Manual) Lymphocytes % (Manual) Monocytes % (Manual) Eosinophils % (Manual) Nucleated RBC % Seg Neutrophils # Seg Neutrophils # Man Lymphocytes # (Manual) Monocytes # (Manual) Eosinophils # (Manual) PT INR APTT Fibrinogen POC ABG pH ABG pH POC ABG pCO2 POC ABG pO2 ABG pO2 ABG HCO3 ABG O2 Saturation ABG Base Excess ABG Hemoglobin Oxyhemoglobin Sodium Potassium Chloride Carbon Dioxide BUN Creatinine Glucose POC Glucose 267 H 307 H 292 H Uric Acid Calcium Phosphorus Magnesium Iron TIBC AST ALT Total Creatine Kinase CK-MB (CK-2) Troponin T NT-Pro-B Natriuret Pep Total Protein Albumin Triglycerides HDL Cholesterol Folate Urine WBC (Auto) Urine Creatinine Urine Total Protein Vancomycin Trough 06/05/19 06/05/19 06/05/19 03:52 06:41 12:29 WBC RBC Hgb Hct MCV MCH MCHC RDW Plt Count Lymph % (Auto) [place] % (Auto) Eos % (Auto) Lymph # [place] # Eos # Seg Neutrophils % Seg Neuts % (Manual) Lymphocytes % (Manual) Monocytes % (Manual) Eosinophils % (Manual) Nucleated RBC % Seg Neutrophils # Seg Neutrophils # Man Lymphocytes # (Manual) Monocytes # (Manual) Eosinophils # (Manual) PT INR APTT Fibrinogen POC ABG pH 7.462 H ABG pH POC ABG pCO2 POC ABG pO2 ABG pO2 ABG HCO3 ABG O2 Saturation ABG Base Excess ABG Hemoglobin Oxyhemoglobin Sodium Potassium Chloride Carbon Dioxide BUN Creatinine Glucose POC Glucose 369 H 265 H Uric Acid Calcium Phosphorus Magnesium Iron TIBC AST ALT Total Creatine Kinase CK-MB (CK-2) Troponin T NT-Pro-B Natriuret Pep Total Protein Albumin Triglycerides HDL Cholesterol Folate Urine WBC (Auto) Urine Creatinine Urine Total Protein Vancomycin Trough 06/05/19 06/05/19 06/05/19 18:20 21:42 23:21 WBC RBC Hgb Hct MCV MCH MCHC RDW Plt Count Lymph % (Auto) [place] % (Auto) Eos % (Auto) Lymph # [place] # Eos # Seg Neutrophils % Seg Neuts % (Manual) Lymphocytes % (Manual) Monocytes % (Manual) Eosinophils % (Manual) Nucleated RBC % Seg Neutrophils # Seg Neutrophils # Man Lymphocytes # (Manual) Monocytes # (Manual) Eosinophils # (Manual) PT INR APTT Fibrinogen POC ABG pH ABG pH POC ABG pCO2 POC ABG pO2 ABG pO2 ABG HCO3 ABG O2 Saturation ABG Base Excess ABG Hemoglobin Oxyhemoglobin Sodium Potassium Chloride Carbon Dioxide BUN Creatinine Glucose POC Glucose 249 H 246 H 274 H Uric Acid Calcium Phosphorus Magnesium Iron TIBC AST ALT Total Creatine Kinase CK-MB (CK-2) Troponin T NT-Pro-B Natriuret Pep Total Protein Albumin Triglycerides HDL Cholesterol Folate Urine WBC (Auto) Urine Creatinine Urine Total Protein Vancomycin Trough 06/06/19 06/06/19 06/06/19 04:00 05:49 11:34 WBC 18.1 H RBC 3.53 L Hgb 9.5 L Hct 30.3 L MCV MCH 27 L MCHC 31 L RDW 19.5 H Plt Count Lymph % (Auto) [place] % (Auto) Eos % (Auto) Lymph # [place] # Eos # Seg Neutrophils % Seg Neuts % (Manual) 87.0 H Lymphocytes % (Manual) 3.0 L Monocytes % (Manual) 8.0 H Eosinophils % (Manual) Nucleated RBC % Seg Neutrophils # Seg Neutrophils # Man 15.7 H Lymphocytes # (Manual) 0.5 L Monocytes # (Manual) 1.4 H Eosinophils # (Manual) PT INR APTT Fibrinogen POC ABG pH ABG pH 7.472 H POC ABG pCO2 POC ABG pO2 ABG pO2 76.4 L ABG HCO3 28.1 H ABG O2 Saturation ABG Base Excess 4.3 H ABG Hemoglobin 12.5 L Oxyhemoglobin 93.8 L Sodium Potassium Chloride Carbon Dioxide BUN Creatinine Glucose POC Glucose 340 H Uric Acid Calcium Phosphorus Magnesium Iron TIBC AST ALT Total Creatine Kinase CK-MB (CK-2) Troponin T NT-Pro-B Natriuret Pep Total Protein Albumin Triglycerides HDL Cholesterol Folate Urine WBC (Auto) Urine Creatinine Urine Total Protein Vancomycin Trough 06/06/19 06/06/19 06/06/19 11:34 12:11 18:10 WBC RBC Hgb Hct MCV MCH MCHC RDW Plt Count Lymph % (Auto) [place] % (Auto) Eos % (Auto) Lymph # [place] # Eos # Seg Neutrophils % Seg Neuts % (Manual) Lymphocytes % (Manual) Monocytes % (Manual) Eosinophils % (Manual) Nucleated RBC % Seg Neutrophils # Seg Neutrophils # Man Lymphocytes # (Manual) Monocytes # (Manual) Eosinophils # (Manual) PT INR APTT Fibrinogen POC ABG pH ABG pH POC ABG pCO2 POC ABG pO2 ABG pO2 ABG HCO3 ABG O2 Saturation ABG Base Excess ABG Hemoglobin Oxyhemoglobin Sodium Potassium Chloride Carbon Dioxide BUN 70 H Creatinine Glucose 310 H POC Glucose 283 H 301 H Uric Acid Calcium 8.3 L Phosphorus 4.60 H Magnesium Iron TIBC AST ALT 75 H Total Creatine Kinase CK-MB (CK-2) Troponin T NT-Pro-B Natriuret Pep Total Protein 5.6 L Albumin 2.9 L Triglycerides HDL Cholesterol Folate Urine WBC (Auto) Urine Creatinine Urine Total Protein Vancomycin Trough 06/06/19 06/06/19 06/07/19 22:21 23:16 04:30 WBC RBC Hgb Hct MCV MCH MCHC RDW Plt Count Lymph % (Auto) [place] % (Auto) Eos % (Auto) Lymph # [place] # Eos # Seg Neutrophils % Seg Neuts % (Manual) Lymphocytes % (Manual) Monocytes % (Manual) Eosinophils % (Manual) Nucleated RBC % Seg Neutrophils # Seg Neutrophils # Man Lymphocytes # (Manual) Monocytes # (Manual) Eosinophils # (Manual) PT INR APTT Fibrinogen POC ABG pH ABG pH 7.480 H POC ABG pCO2 POC ABG pO2 ABG pO2 77.0 L ABG HCO3 27.2 H ABG O2 Saturation ABG Base Excess 3.5 H ABG Hemoglobin 7.1 L Oxyhemoglobin 94.2 L Sodium Potassium Chloride Carbon Dioxide BUN Creatinine Glucose POC Glucose 289 H 343 H Uric Acid Calcium Phosphorus Magnesium Iron TIBC AST ALT Total Creatine Kinase CK-MB (CK-2) Troponin T NT-Pro-B Natriuret Pep Total Protein Albumin Triglycerides HDL Cholesterol Folate Urine WBC (Auto) Urine Creatinine Urine Total Protein Vancomycin Trough 06/07/19 06/07/19 06/07/19 05:15 12:52 18:41 WBC RBC Hgb Hct MCV MCH MCHC RDW Plt Count Lymph % (Auto) [place] % (Auto) Eos % (Auto) Lymph # [place] # Eos # Seg Neutrophils % Seg Neuts % (Manual) Lymphocytes % (Manual) Monocytes % (Manual) Eosinophils % (Manual) Nucleated RBC % Seg Neutrophils # Seg Neutrophils # Man Lymphocytes # (Manual) Monocytes # (Manual) Eosinophils # (Manual) PT INR APTT Fibrinogen POC ABG pH ABG pH POC ABG pCO2 POC ABG pO2 ABG pO2 ABG HCO3 ABG O2 Saturation ABG Base Excess ABG Hemoglobin Oxyhemoglobin Sodium Potassium Chloride Carbon Dioxide BUN Creatinine Glucose POC Glucose 307 H 226 H 187 H Uric Acid Calcium Phosphorus Magnesium Iron TIBC AST ALT Total Creatine Kinase CK-MB (CK-2) Troponin T NT-Pro-B Natriuret Pep Total Protein Albumin Triglycerides HDL Cholesterol Folate Urine WBC (Auto) Urine Creatinine Urine Total Protein Vancomycin Trough 06/07/19 06/07/19 06/08/19 22:54 23:46 04:20 WBC 16.0 H RBC Hgb 10.0 L Hct 32.1 L MCV MCH 27 L MCHC 31 L RDW 19.4 H Plt Count Lymph % (Auto) [place] % (Auto) Eos % (Auto) Lymph # [place] # Eos # Seg Neutrophils % Seg Neuts % (Manual) 87.0 H Lymphocytes % (Manual) 7.0 L Monocytes % (Manual) Eosinophils % (Manual) Nucleated RBC % Seg Neutrophils # Seg Neutrophils # Man 13.9 H Lymphocytes # (Manual) 1.1 L Monocytes # (Manual) 1.0 H Eosinophils # (Manual) PT INR APTT Fibrinogen POC ABG pH ABG pH POC ABG pCO2 POC ABG pO2 ABG pO2 ABG HCO3 ABG O2 Saturation ABG Base Excess ABG Hemoglobin Oxyhemoglobin Sodium Potassium Chloride Carbon Dioxide BUN Creatinine Glucose POC Glucose 199 H 172 H Uric Acid Calcium Phosphorus Magnesium Iron TIBC AST ALT Total Creatine Kinase CK-MB (CK-2) Troponin T NT-Pro-B Natriuret Pep Total Protein Albumin Triglycerides HDL Cholesterol Folate Urine WBC (Auto) Urine Creatinine Urine Total Protein Vancomycin Trough 06/08/19 06/08/19 06/08/19 04:20 05:15 11:31 WBC RBC Hgb Hct MCV MCH MCHC RDW Plt Count Lymph % (Auto) [place] % (Auto) Eos % (Auto) Lymph # [place] # Eos # Seg Neutrophils % Seg Neuts % (Manual) Lymphocytes % (Manual) Monocytes % (Manual) Eosinophils % (Manual) Nucleated RBC % Seg Neutrophils # Seg Neutrophils # Man Lymphocytes # (Manual) Monocytes # (Manual) Eosinophils # (Manual) PT INR APTT Fibrinogen POC ABG pH ABG pH POC ABG pCO2 POC ABG pO2 ABG pO2 ABG HCO3 ABG O2 Saturation ABG Base Excess ABG Hemoglobin Oxyhemoglobin Sodium 146 H D Potassium Chloride Carbon Dioxide BUN 77 H Creatinine Glucose 205 H POC Glucose 209 H 181 H Uric Acid Calcium Phosphorus Magnesium Iron TIBC AST ALT 66 H Total Creatine Kinase CK-MB (CK-2) Troponin T NT-Pro-B Natriuret Pep Total Protein 5.5 L Albumin 2.9 L Triglycerides HDL Cholesterol Folate Urine WBC (Auto) Urine Creatinine Urine Total Protein Vancomycin Trough 06/08/19 06/08/19 06/09/19 17:28 23:24 05:20 WBC RBC Hgb Hct MCV MCH MCHC RDW Plt Count Lymph % (Auto) [place] % (Auto) Eos % (Auto) Lymph # [place] # Eos # Seg Neutrophils % Seg Neuts % (Manual) Lymphocytes % (Manual) Monocytes % (Manual) Eosinophils % (Manual) Nucleated RBC % Seg Neutrophils # Seg Neutrophils # Man Lymphocytes # (Manual) Monocytes # (Manual) Eosinophils # (Manual) PT INR APTT Fibrinogen POC ABG pH ABG pH POC ABG pCO2 POC ABG pO2 ABG pO2 ABG HCO3 ABG O2 Saturation ABG Base Excess ABG Hemoglobin Oxyhemoglobin Sodium Potassium Chloride Carbon Dioxide BUN Creatinine Glucose POC Glucose 215 H 200 H 173 H Uric Acid Calcium Phosphorus Magnesium Iron TIBC AST ALT Total Creatine Kinase CK-MB (CK-2) Troponin T NT-Pro-B Natriuret Pep Total Protein Albumin Triglycerides HDL Cholesterol Folate Urine WBC (Auto) Urine Creatinine Urine Total Protein Vancomycin Trough 06/09/19 06/09/19 06/09/19 12:07 18:32 23:51 WBC RBC Hgb Hct MCV MCH MCHC RDW Plt Count Lymph % (Auto) [place] % (Auto) Eos % (Auto) Lymph # [place] # Eos # Seg Neutrophils % Seg Neuts % (Manual) Lymphocytes % (Manual) Monocytes % (Manual) Eosinophils % (Manual) Nucleated RBC % Seg Neutrophils # Seg Neutrophils # Man Lymphocytes # (Manual) Monocytes # (Manual) Eosinophils # (Manual) PT INR APTT Fibrinogen POC ABG pH ABG pH POC ABG pCO2 POC ABG pO2 ABG pO2 ABG HCO3 ABG O2 Saturation ABG Base Excess ABG Hemoglobin Oxyhemoglobin Sodium Potassium Chloride Carbon Dioxide BUN Creatinine Glucose POC Glucose 117 H 169 H 147 H Uric Acid Calcium Phosphorus Magnesium Iron TIBC AST ALT Total Creatine Kinase CK-MB (CK-2) Troponin T NT-Pro-B Natriuret Pep Total Protein Albumin Triglycerides HDL Cholesterol Folate Urine WBC (Auto) Urine Creatinine Urine Total Protein Vancomycin Trough 06/10/19 06/10/19 06/10/19 05:45 05:45 06:01 WBC 14.6 H RBC Hgb 9.9 L Hct 32.2 L MCV MCH 27 L MCHC 31 L RDW 19.6 H Plt Count Lymph % (Auto) 10.5 L [place] % (Auto) 9.4 H Eos % (Auto) Lymph # [place] # 1.4 H Eos # Seg Neutrophils % 79.9 H Seg Neuts % (Manual) Lymphocytes % (Manual) Monocytes % (Manual) Eosinophils % (Manual) Nucleated RBC % Seg Neutrophils # 11.7 H Seg Neutrophils # Man Lymphocytes # (Manual) Monocytes # (Manual) Eosinophils # (Manual) PT INR APTT Fibrinogen POC ABG pH ABG pH POC ABG pCO2 POC ABG pO2 ABG pO2 ABG HCO3 ABG O2 Saturation ABG Base Excess ABG Hemoglobin Oxyhemoglobin Sodium 150 H Potassium Chloride 108.3 H Carbon Dioxide BUN 49 H Creatinine Glucose 172 H POC Glucose 165 H Uric Acid Calcium Phosphorus Magnesium 1.40 L Iron TIBC AST ALT Total Creatine Kinase CK-MB (CK-2) Troponin T NT-Pro-B Natriuret Pep Total Protein Albumin Triglycerides HDL Cholesterol Folate Urine WBC (Auto) Urine Creatinine Urine Total Protein Vancomycin Trough 06/10/19 06/10/19 06/11/19 12:11 18:30 00:02 WBC RBC Hgb Hct MCV MCH MCHC RDW Plt Count Lymph % (Auto) [place] % (Auto) Eos % (Auto) Lymph # [place] # Eos # Seg Neutrophils % Seg Neuts % (Manual) Lymphocytes % (Manual) Monocytes % (Manual) Eosinophils % (Manual) Nucleated RBC % Seg Neutrophils # Seg Neutrophils # Man Lymphocytes # (Manual) Monocytes # (Manual) Eosinophils # (Manual) PT INR APTT Fibrinogen POC ABG pH ABG pH POC ABG pCO2 POC ABG pO2 ABG pO2 ABG HCO3 ABG O2 Saturation ABG Base Excess ABG Hemoglobin Oxyhemoglobin Sodium Potassium Chloride Carbon Dioxide BUN Creatinine Glucose POC Glucose 150 H 154 H 130 H Uric Acid Calcium Phosphorus Magnesium Iron TIBC AST ALT Total Creatine Kinase CK-MB (CK-2) Troponin T NT-Pro-B Natriuret Pep Total Protein Albumin Triglycerides HDL Cholesterol Folate Urine WBC (Auto) Urine Creatinine Urine Total Protein Vancomycin Trough 06/11/19 06/11/19 06/11/19 05:33 08:34 12:33 WBC RBC Hgb Hct MCV MCH MCHC RDW Plt Count Lymph % (Auto) [place] % (Auto) Eos % (Auto) Lymph # [place] # Eos # Seg Neutrophils % Seg Neuts % (Manual) Lymphocytes % (Manual) Monocytes % (Manual) Eosinophils % (Manual) Nucleated RBC % Seg Neutrophils # Seg Neutrophils # Man Lymphocytes # (Manual) Monocytes # (Manual) Eosinophils # (Manual) PT INR APTT Fibrinogen POC ABG pH ABG pH POC ABG pCO2 POC ABG pO2 ABG pO2 ABG HCO3 ABG O2 Saturation ABG Base Excess ABG Hemoglobin Oxyhemoglobin Sodium 154 H Potassium Chloride 111.6 H Carbon Dioxide BUN 41 H Creatinine Glucose 147 H POC Glucose 183 H 185 H Uric Acid Calcium Phosphorus Magnesium Iron TIBC AST ALT Total Creatine Kinase CK-MB (CK-2) Troponin T NT-Pro-B Natriuret Pep Total Protein Albumin Triglycerides HDL Cholesterol Folate Urine WBC (Auto) Urine Creatinine Urine Total Protein Vancomycin Trough 06/11/19 06/11/19 06/12/19 18:22 23:46 03:21 WBC 11.9 H RBC 3.61 L Hgb 9.9 L Hct 31.7 L MCV MCH 27 L MCHC 31 L RDW 19.3 H Plt Count Lymph % (Auto) 10.6 L [place] % (Auto) 8.6 H Eos % (Auto) Lymph # [place] # 1.0 H Eos # Seg Neutrophils % 80.6 H Seg Neuts % (Manual) Lymphocytes % (Manual) Monocytes % (Manual) Eosinophils % (Manual) Nucleated RBC % Seg Neutrophils # 9.6 H Seg Neutrophils # Man Lymphocytes # (Manual) Monocytes # (Manual) Eosinophils # (Manual) PT INR APTT Fibrinogen POC ABG pH ABG pH POC ABG pCO2 POC ABG pO2 ABG pO2 ABG HCO3 ABG O2 Saturation ABG Base Excess ABG Hemoglobin Oxyhemoglobin Sodium Potassium Chloride Carbon Dioxide BUN Creatinine Glucose POC Glucose 158 H 182 H Uric Acid Calcium Phosphorus Magnesium Iron TIBC AST ALT Total Creatine Kinase CK-MB (CK-2) Troponin T NT-Pro-B Natriuret Pep Total Protein Albumin Triglycerides HDL Cholesterol Folate Urine WBC (Auto) Urine Creatinine Urine Total Protein Vancomycin Trough 06/12/19 06/12/19 06/12/19 03:21 06:04 11:28 WBC RBC Hgb Hct MCV MCH MCHC RDW Plt Count Lymph % (Auto) [place] % (Auto) Eos % (Auto) Lymph # [place] # Eos # Seg Neutrophils % Seg Neuts % (Manual) Lymphocytes % (Manual) Monocytes % (Manual) Eosinophils % (Manual) Nucleated RBC % Seg Neutrophils # Seg Neutrophils # Man Lymphocytes # (Manual) Monocytes # (Manual) Eosinophils # (Manual) PT INR APTT Fibrinogen POC ABG pH ABG pH POC ABG pCO2 POC ABG pO2 ABG pO2 ABG HCO3 ABG O2 Saturation ABG Base Excess ABG Hemoglobin Oxyhemoglobin Sodium 148 H Potassium Chloride 107.3 H Carbon Dioxide BUN 34 H Creatinine 0.7 L Glucose 194 H POC Glucose 133 H 167 H Uric Acid Calcium Phosphorus Magnesium 1.40 L Iron TIBC AST ALT Total Creatine Kinase CK-MB (CK-2) Troponin T NT-Pro-B Natriuret Pep Total Protein Albumin Triglycerides HDL Cholesterol Folate Urine WBC (Auto) Urine Creatinine Urine Total Protein Vancomycin Trough 06/12/19 06/12/19 06/13/19 18:47 21:27 00:04 WBC RBC Hgb Hct MCV MCH MCHC RDW Plt Count Lymph % (Auto) [place] % (Auto) Eos % (Auto) Lymph # [place] # Eos # Seg Neutrophils % Seg Neuts % (Manual) Lymphocytes % (Manual) Monocytes % (Manual) Eosinophils % (Manual) Nucleated RBC % Seg Neutrophils # Seg Neutrophils # Man Lymphocytes # (Manual) Monocytes # (Manual) Eosinophils # (Manual) PT INR APTT Fibrinogen POC ABG pH ABG pH POC ABG pCO2 POC ABG pO2 ABG pO2 ABG HCO3 ABG O2 Saturation ABG Base Excess ABG Hemoglobin Oxyhemoglobin Sodium Potassium Chloride Carbon Dioxide BUN Creatinine Glucose POC Glucose 210 H 263 H 248 H Uric Acid Calcium Phosphorus Magnesium Iron TIBC AST ALT Total Creatine Kinase CK-MB (CK-2) Troponin T NT-Pro-B Natriuret Pep Total Protein Albumin Triglycerides HDL Cholesterol Folate Urine WBC (Auto) Urine Creatinine Urine Total Protein Vancomycin Trough 06/13/19 06/13/19 06/13/19 04:32 05:46 13:30 WBC RBC Hgb Hct MCV MCH MCHC RDW Plt Count Lymph % (Auto) [place] % (Auto) Eos % (Auto) Lymph # [place] # Eos # Seg Neutrophils % Seg Neuts % (Manual) Lymphocytes % (Manual) Monocytes % (Manual) Eosinophils % (Manual) Nucleated RBC % Seg Neutrophils # Seg Neutrophils # Man Lymphocytes # (Manual) Monocytes # (Manual) Eosinophils # (Manual) PT INR APTT Fibrinogen POC ABG pH ABG pH POC ABG pCO2 POC ABG pO2 ABG pO2 ABG HCO3 ABG O2 Saturation ABG Base Excess ABG Hemoglobin Oxyhemoglobin Sodium Potassium Chloride Carbon Dioxide BUN 27 H Creatinine 0.7 L Glucose 253 H POC Glucose 201 H 241 H Uric Acid Calcium Phosphorus Magnesium Iron TIBC AST ALT Total Creatine Kinase CK-MB (CK-2) Troponin T NT-Pro-B Natriuret Pep Total Protein Albumin Triglycerides HDL Cholesterol Folate Urine WBC (Auto) Urine Creatinine Urine Total Protein Vancomycin Trough 06/13/19 06/13/19 06/14/19 17:33 23:49 04:50 WBC RBC Hgb Hct MCV MCH MCHC RDW Plt Count Lymph % (Auto) [place] % (Auto) Eos % (Auto) Lymph # [place] # Eos # Seg Neutrophils % Seg Neuts % (Manual) Lymphocytes % (Manual) Monocytes % (Manual) Eosinophils % (Manual) Nucleated RBC % Seg Neutrophils # Seg Neutrophils # Man Lymphocytes # (Manual) Monocytes # (Manual) Eosinophils # (Manual) PT INR APTT Fibrinogen POC ABG pH ABG pH POC ABG pCO2 POC ABG pO2 ABG pO2 ABG HCO3 ABG O2 Saturation ABG Base Excess ABG Hemoglobin Oxyhemoglobin Sodium Potassium Chloride Carbon Dioxide BUN 37 H Creatinine Glucose 256 H POC Glucose 264 H 236 H Uric Acid Calcium Phosphorus Magnesium Iron TIBC AST ALT Total Creatine Kinase CK-MB (CK-2) Troponin T NT-Pro-B Natriuret Pep Total Protein Albumin Triglycerides HDL Cholesterol Folate Urine WBC (Auto) Urine Creatinine Urine Total Protein Vancomycin Trough 06/14/19 06/14/19 06/14/19 05:26 12:31 18:32 WBC RBC Hgb Hct MCV MCH MCHC RDW Plt Count Lymph % (Auto) [place] % (Auto) Eos % (Auto) Lymph # [place] # Eos # Seg Neutrophils % Seg Neuts % (Manual) Lymphocytes % (Manual) Monocytes % (Manual) Eosinophils % (Manual) Nucleated RBC % Seg Neutrophils # Seg Neutrophils # Man Lymphocytes # (Manual) Monocytes # (Manual) Eosinophils # (Manual) PT INR APTT Fibrinogen POC ABG pH ABG pH POC ABG pCO2 POC ABG pO2 ABG pO2 ABG HCO3 ABG O2 Saturation ABG Base Excess ABG Hemoglobin Oxyhemoglobin Sodium Potassium Chloride Carbon Dioxide BUN Creatinine Glucose POC Glucose 239 H 116 H 247 H Uric Acid Calcium Phosphorus Magnesium Iron TIBC AST ALT Total Creatine Kinase CK-MB (CK-2) Troponin T NT-Pro-B Natriuret Pep Total Protein Albumin Triglycerides HDL Cholesterol Folate Urine WBC (Auto) Urine Creatinine Urine Total Protein Vancomycin Trough 06/14/19 06/15/19 06/15/19 23:57 04:05 05:55 WBC RBC Hgb Hct MCV MCH MCHC RDW Plt Count Lymph % (Auto) [place] % (Auto) Eos % (Auto) Lymph # [place] # Eos # Seg Neutrophils % Seg Neuts % (Manual) Lymphocytes % (Manual) Monocytes % (Manual) Eosinophils % (Manual) Nucleated RBC % Seg Neutrophils # Seg Neutrophils # Man Lymphocytes # (Manual) Monocytes # (Manual) Eosinophils # (Manual) PT INR APTT Fibrinogen POC ABG pH ABG pH POC ABG pCO2 POC ABG pO2 ABG pO2 ABG HCO3 ABG O2 Saturation ABG Base Excess ABG Hemoglobin Oxyhemoglobin Sodium Potassium Chloride Carbon Dioxide BUN 46 H Creatinine 0.7 L Glucose 265 H POC Glucose 206 H 265 H Uric Acid Calcium Phosphorus Magnesium Iron TIBC AST ALT Total Creatine Kinase CK-MB (CK-2) Troponin T NT-Pro-B Natriuret Pep Total Protein Albumin Triglycerides HDL Cholesterol Folate Urine WBC (Auto) Urine Creatinine Urine Total Protein Vancomycin Trough 06/15/19 06/15/19 06/15/19 12:08 18:45 23:41 WBC RBC Hgb Hct MCV MCH MCHC RDW Plt Count Lymph % (Auto) [place] % (Auto) Eos % (Auto) Lymph # [place] # Eos # Seg Neutrophils % Seg Neuts % (Manual) Lymphocytes % (Manual) Monocytes % (Manual) Eosinophils % (Manual) Nucleated RBC % Seg Neutrophils # Seg Neutrophils # Man Lymphocytes # (Manual) Monocytes # (Manual) Eosinophils # (Manual) PT INR APTT Fibrinogen POC ABG pH ABG pH POC ABG pCO2 POC ABG pO2 ABG pO2 ABG HCO3 ABG O2 Saturation ABG Base Excess ABG Hemoglobin Oxyhemoglobin Sodium Potassium Chloride Carbon Dioxide BUN Creatinine Glucose POC Glucose 224 H 177 H 193 H Uric Acid Calcium Phosphorus Magnesium Iron TIBC AST ALT Total Creatine Kinase CK-MB (CK-2) Troponin T NT-Pro-B Natriuret Pep Total Protein Albumin Triglycerides HDL Cholesterol Folate Urine WBC (Auto) Urine Creatinine Urine Total Protein Vancomycin Trough 06/16/19 06/16/19 06/16/19 05:00 05:00 05:40 WBC 11.9 H RBC 3.24 L Hgb 9.0 L Hct 29.0 L MCV MCH MCHC 31 L RDW 18.6 H Plt Count 111 L Lymph % (Auto) [place] % (Auto) Eos % (Auto) Lymph # [place] # Eos # Seg Neutrophils % Seg Neuts % (Manual) 92.0 H Lymphocytes % (Manual) 2.0 L Monocytes % (Manual) Eosinophils % (Manual) Nucleated RBC % Seg Neutrophils # Seg Neutrophils # Man 10.9 H Lymphocytes # (Manual) 0.2 L Monocytes # (Manual) Eosinophils # (Manual) PT INR APTT Fibrinogen POC ABG pH ABG pH POC ABG pCO2 POC ABG pO2 ABG pO2 ABG HCO3 ABG O2 Saturation ABG Base Excess ABG Hemoglobin Oxyhemoglobin Sodium Potassium Chloride Carbon Dioxide 33 H BUN 49 H Creatinine 0.7 L Glucose 264 H POC Glucose 247 H Uric Acid Calcium Phosphorus Magnesium Iron TIBC AST ALT Total Creatine Kinase CK-MB (CK-2) Troponin T NT-Pro-B Natriuret Pep Total Protein Albumin Triglycerides HDL Cholesterol Folate Urine WBC (Auto) Urine Creatinine Urine Total Protein Vancomycin Trough 06/16/19 06/16/19 06/16/19 12:03 17:11 18:11 WBC RBC Hgb Hct MCV MCH MCHC RDW Plt Count Lymph % (Auto) [place] % (Auto) Eos % (Auto) Lymph # [place] # Eos # Seg Neutrophils % Seg Neuts % (Manual) Lymphocytes % (Manual) Monocytes % (Manual) Eosinophils % (Manual) Nucleated RBC % Seg Neutrophils # Seg Neutrophils # Man Lymphocytes # (Manual) Monocytes # (Manual) Eosinophils # (Manual) PT INR APTT Fibrinogen POC ABG pH ABG pH 7.289 L POC ABG pCO2 POC ABG pO2 ABG pO2 399.3 H ABG HCO3 30.1 H ABG O2 Saturation 99.6 H ABG Base Excess ABG Hemoglobin 8.6 L Oxyhemoglobin Sodium Potassium Chloride Carbon Dioxide BUN Creatinine Glucose POC Glucose 252 H 254 H Uric Acid Calcium Phosphorus Magnesium Iron TIBC AST ALT Total Creatine Kinase CK-MB (CK-2) Troponin T NT-Pro-B Natriuret Pep Total Protein Albumin Triglycerides HDL Cholesterol Folate Urine WBC (Auto) Urine Creatinine Urine Total Protein Vancomycin Trough 06/16/19 06/17/19 06/17/19 23:16 05:30 05:53 WBC RBC Hgb Hct MCV MCH MCHC RDW Plt Count Lymph % (Auto) [place] % (Auto) Eos % (Auto) Lymph # [place] # Eos # Seg Neutrophils % Seg Neuts % (Manual) Lymphocytes % (Manual) Monocytes % (Manual) Eosinophils % (Manual) Nucleated RBC % Seg Neutrophils # Seg Neutrophils # Man Lymphocytes # (Manual) Monocytes # (Manual) Eosinophils # (Manual) PT INR APTT Fibrinogen POC ABG pH ABG pH POC ABG pCO2 POC ABG pO2 ABG pO2 ABG HCO3 ABG O2 Saturation ABG Base Excess ABG Hemoglobin Oxyhemoglobin Sodium 147 H Potassium Chloride Carbon Dioxide 32 H BUN 60 H Creatinine Glucose 205 H POC Glucose 238 H 211 H Uric Acid Calcium Phosphorus Magnesium Iron TIBC AST ALT Total Creatine Kinase CK-MB (CK-2) Troponin T NT-Pro-B Natriuret Pep Total Protein Albumin Triglycerides HDL Cholesterol Folate Urine WBC (Auto) Urine Creatinine Urine Total Protein Vancomycin Trough 06/17/19 06/17/19 06/17/19 09:50 12:27 12:45 WBC RBC 2.79 L Hgb 8.2 L Hct 24.6 L MCV MCH MCHC RDW 18.5 H Plt Count 95 L Lymph % (Auto) [place] % (Auto) Eos % (Auto) Lymph # [place] # Eos # Seg Neutrophils % Seg Neuts % (Manual) Lymphocytes % (Manual) Monocytes % (Manual) Eosinophils % (Manual) Nucleated RBC % Seg Neutrophils # Seg Neutrophils # Man Lymphocytes # (Manual) Monocytes # (Manual) Eosinophils # (Manual) PT INR APTT Fibrinogen 194 L POC ABG pH ABG pH POC ABG pCO2 POC ABG pO2 ABG pO2 ABG HCO3 ABG O2 Saturation ABG Base Excess ABG Hemoglobin Oxyhemoglobin Sodium Potassium Chloride Carbon Dioxide BUN Creatinine Glucose POC Glucose 224 H Uric Acid Calcium Phosphorus Magnesium Iron TIBC AST ALT Total Creatine Kinase CK-MB (CK-2) Troponin T NT-Pro-B Natriuret Pep Total Protein Albumin Triglycerides HDL Cholesterol Folate Urine WBC (Auto) Urine Creatinine Urine Total Protein Vancomycin Trough 06/17/19 06/17/19 06/17/19 18:41 22:00 23:23 WBC RBC Hgb Hct MCV MCH MCHC RDW Plt Count Lymph % (Auto) [place] % (Auto) Eos % (Auto) Lymph # [place] # Eos # Seg Neutrophils % Seg Neuts % (Manual) Lymphocytes % (Manual) Monocytes % (Manual) Eosinophils % (Manual) Nucleated RBC % Seg Neutrophils # Seg Neutrophils # Man Lymphocytes # (Manual) Monocytes # (Manual) Eosinophils # (Manual) PT INR APTT Fibrinogen POC ABG pH ABG pH POC ABG pCO2 POC ABG pO2 ABG pO2 ABG HCO3 ABG O2 Saturation ABG Base Excess ABG Hemoglobin Oxyhemoglobin Sodium Potassium Chloride Carbon Dioxide BUN Creatinine Glucose POC Glucose 198 H 166 H 171 H Uric Acid Calcium Phosphorus Magnesium Iron TIBC AST ALT Total Creatine Kinase CK-MB (CK-2) Troponin T NT-Pro-B Natriuret Pep Total Protein Albumin Triglycerides HDL Cholesterol Folate Urine WBC (Auto) Urine Creatinine Urine Total Protein Vancomycin Trough 06/17/19 06/18/19 06/18/19 Unknown 03:50 04:25 WBC RBC Hgb Hct MCV MCH MCHC RDW Plt Count Lymph % (Auto) [place] % (Auto) Eos % (Auto) Lymph # [place] # Eos # Seg Neutrophils % Seg Neuts % (Manual) Lymphocytes % (Manual) Monocytes % (Manual) Eosinophils % (Manual) Nucleated RBC % Seg Neutrophils # Seg Neutrophils # Man Lymphocytes # (Manual) Monocytes # (Manual) Eosinophils # (Manual) PT INR APTT Fibrinogen POC ABG pH ABG pH 7.564 H 7.499 H POC ABG pCO2 POC ABG pO2 ABG pO2 238.6 H 130.8 H ABG HCO3 33.6 H 32.5 H ABG O2 Saturation 99.4 H ABG Base Excess 10.6 H 8.5 H ABG Hemoglobin 7.9 L 8.8 L Oxyhemoglobin Sodium 151 H Potassium 3.4 L Chloride Carbon Dioxide BUN 66 H Creatinine Glucose 189 H POC Glucose Uric Acid Calcium Phosphorus Magnesium Iron TIBC AST ALT Total Creatine Kinase CK-MB (CK-2) Troponin T NT-Pro-B Natriuret Pep Total Protein Albumin Triglycerides HDL Cholesterol Folate Urine WBC (Auto) Urine Creatinine Urine Total Protein Vancomycin Trough 06/18/19 06/18/19 06/18/19 05:25 05:27 11:50 WBC RBC 2.61 L Hgb 7.4 L Hct 22.9 L MCV MCH MCHC RDW 19.9 H Plt Count 81 L Lymph % (Auto) 12.9 L [place] % (Auto) 7.7 H Eos % (Auto) Lymph # 1.1 L [place] # Eos # Seg Neutrophils % 77.4 H Seg Neuts % (Manual) Lymphocytes % (Manual) Monocytes % (Manual) Eosinophils % (Manual) Nucleated RBC % Seg Neutrophils # Seg Neutrophils # Man Lymphocytes # (Manual) Monocytes # (Manual) Eosinophils # (Manual) PT INR APTT Fibrinogen POC ABG pH ABG pH POC ABG pCO2 POC ABG pO2 ABG pO2 ABG HCO3 ABG O2 Saturation ABG Base Excess ABG Hemoglobin Oxyhemoglobin Sodium Potassium Chloride Carbon Dioxide BUN Creatinine Glucose POC Glucose 186 H 263 H Uric Acid Calcium Phosphorus Magnesium Iron TIBC AST ALT Total Creatine Kinase CK-MB (CK-2) Troponin T NT-Pro-B Natriuret Pep Total Protein Albumin Triglycerides HDL Cholesterol Folate Urine WBC (Auto) Urine Creatinine Urine Total Protein Vancomycin Trough 06/18/19 06/18/19 06/18/19 18:35 21:31 23:21 WBC RBC Hgb Hct MCV MCH MCHC RDW Plt Count Lymph % (Auto) [place] % (Auto) Eos % (Auto) Lymph # [place] # Eos # Seg Neutrophils % Seg Neuts % (Manual) Lymphocytes % (Manual) Monocytes % (Manual) Eosinophils % (Manual) Nucleated RBC % Seg Neutrophils # Seg Neutrophils # Man Lymphocytes # (Manual) Monocytes # (Manual) Eosinophils # (Manual) PT INR APTT Fibrinogen POC ABG pH ABG pH POC ABG pCO2 POC ABG pO2 ABG pO2 ABG HCO3 ABG O2 Saturation ABG Base Excess ABG Hemoglobin Oxyhemoglobin Sodium Potassium Chloride Carbon Dioxide BUN Creatinine Glucose POC Glucose 154 H 186 H 202 H Uric Acid Calcium Phosphorus Magnesium Iron TIBC AST ALT Total Creatine Kinase CK-MB (CK-2) Troponin T NT-Pro-B Natriuret Pep Total Protein Albumin Triglycerides HDL Cholesterol Folate Urine WBC (Auto) Urine Creatinine Urine Total Protein Vancomycin Trough 06/19/19 06/19/19 06/19/19 03:18 04:30 04:30 WBC RBC 2.65 L Hgb 7.5 L Hct 23.1 L MCV MCH MCHC RDW 19.4 H Plt Count 74 L Lymph % (Auto) 8.8 L [place] % (Auto) 9.4 H Eos % (Auto) 4.7 H Lymph # 0.6 L [place] # Eos # Seg Neutrophils % 76.6 H Seg Neuts % (Manual) Lymphocytes % (Manual) Monocytes % (Manual) Eosinophils % (Manual) Nucleated RBC % Seg Neutrophils # Seg Neutrophils # Man Lymphocytes # (Manual) Monocytes # (Manual) Eosinophils # (Manual) PT INR APTT Fibrinogen POC ABG pH ABG pH 7.452 H POC ABG pCO2 POC ABG pO2 ABG pO2 105.5 H ABG HCO3 32.3 H ABG O2 Saturation ABG Base Excess 7.6 H ABG Hemoglobin 6.9 L Oxyhemoglobin Sodium 150 H Potassium 3.3 L Chloride Carbon Dioxide 31 H BUN 56 H Creatinine Glucose 197 H POC Glucose Uric Acid Calcium Phosphorus Magnesium Iron TIBC AST ALT Total Creatine Kinase CK-MB (CK-2) Troponin T NT-Pro-B Natriuret Pep Total Protein Albumin Triglycerides 210 H HDL Cholesterol Folate Urine WBC (Auto) Urine Creatinine Urine Total Protein Vancomycin Trough 06/19/19 06/19/19 06/19/19 05:24 12:18 18:55 WBC RBC Hgb Hct MCV MCH MCHC RDW Plt Count Lymph % (Auto) [place] % (Auto) Eos % (Auto) Lymph # [place] # Eos # Seg Neutrophils % Seg Neuts % (Manual) Lymphocytes % (Manual) Monocytes % (Manual) Eosinophils % (Manual) Nucleated RBC % Seg Neutrophils # Seg Neutrophils # Man Lymphocytes # (Manual) Monocytes # (Manual) Eosinophils # (Manual) PT INR APTT Fibrinogen POC ABG pH ABG pH POC ABG pCO2 POC ABG pO2 ABG pO2 ABG HCO3 ABG O2 Saturation ABG Base Excess ABG Hemoglobin Oxyhemoglobin Sodium Potassium Chloride Carbon Dioxide BUN Creatinine Glucose POC Glucose 176 H 260 H 192 H Uric Acid Calcium Phosphorus Magnesium Iron TIBC AST ALT Total Creatine Kinase CK-MB (CK-2) Troponin T NT-Pro-B Natriuret Pep Total Protein Albumin Triglycerides HDL Cholesterol Folate Urine WBC (Auto) Urine Creatinine Urine Total Protein Vancomycin Trough 06/19/19 06/19/19 06/20/19 22:57 23:46 04:40 WBC RBC 2.79 L Hgb 7.9 L Hct 24.3 L MCV MCH MCHC RDW 19.6 H Plt Count 92 L Lymph % (Auto) 9.2 L [place] % (Auto) 12.0 H Eos % (Auto) 5.2 H Lymph # 0.9 L [place] # 1.2 H Eos # 0.5 H Seg Neutrophils % 73.3 H Seg Neuts % (Manual) Lymphocytes % (Manual) Monocytes % (Manual) Eosinophils % (Manual) Nucleated RBC % Seg Neutrophils # Seg Neutrophils # Man Lymphocytes # (Manual) Monocytes # (Manual) Eosinophils # (Manual) PT INR APTT Fibrinogen POC ABG pH ABG pH POC ABG pCO2 POC ABG pO2 ABG pO2 ABG HCO3 ABG O2 Saturation ABG Base Excess ABG Hemoglobin Oxyhemoglobin Sodium Potassium Chloride Carbon Dioxide BUN Creatinine Glucose POC Glucose 145 H 216 H Uric Acid Calcium Phosphorus Magnesium Iron TIBC AST ALT Total Creatine Kinase CK-MB (CK-2) Troponin T NT-Pro-B Natriuret Pep Total Protein Albumin Triglycerides HDL Cholesterol Folate Urine WBC (Auto) Urine Creatinine Urine Total Protein Vancomycin Trough 06/20/19 06/20/19 06/20/19 04:40 05:40 05:54 WBC RBC Hgb Hct MCV MCH MCHC RDW Plt Count Lymph % (Auto) [place] % (Auto) Eos % (Auto) Lymph # [place] # Eos # Seg Neutrophils % Seg Neuts % (Manual) Lymphocytes % (Manual) Monocytes % (Manual) Eosinophils % (Manual) Nucleated RBC % Seg Neutrophils # Seg Neutrophils # Man Lymphocytes # (Manual) Monocytes # (Manual) Eosinophils # (Manual) PT INR APTT Fibrinogen POC ABG pH ABG pH 7.455 H POC ABG pCO2 POC ABG pO2 ABG pO2 60.9 L ABG HCO3 30.3 H ABG O2 Saturation 92.3 L ABG Base Excess 5.8 H ABG Hemoglobin 8.2 L Oxyhemoglobin 90.1 L Sodium Potassium 3.5 L Chloride Carbon Dioxide BUN 59 H Creatinine Glucose 200 H POC Glucose 190 H Uric Acid Calcium Phosphorus Magnesium 1.60 L Iron TIBC AST ALT Total Creatine Kinase CK-MB (CK-2) Troponin T NT-Pro-B Natriuret Pep Total Protein Albumin Triglycerides HDL Cholesterol Folate Urine WBC (Auto) Urine Creatinine Urine Total Protein Vancomycin Trough 06/20/19 06/20/19 06/20/19 09:12 09:12 12:24 WBC RBC Hgb Hct MCV MCH MCHC RDW Plt Count Lymph % (Auto) [place] % (Auto) Eos % (Auto) Lymph # [place] # Eos # Seg Neutrophils % Seg Neuts % (Manual) Lymphocytes % (Manual) Monocytes % (Manual) Eosinophils % (Manual) Nucleated RBC % Seg Neutrophils # Seg Neutrophils # Man Lymphocytes # (Manual) Monocytes # (Manual) Eosinophils # (Manual) PT INR APTT Fibrinogen POC ABG pH ABG pH POC ABG pCO2 POC ABG pO2 ABG pO2 ABG HCO3 ABG O2 Saturation ABG Base Excess ABG Hemoglobin Oxyhemoglobin Sodium Potassium Chloride Carbon Dioxide BUN Creatinine Glucose POC Glucose 225 H Uric Acid Calcium Phosphorus Magnesium Iron 45 L TIBC 110 L AST ALT Total Creatine Kinase CK-MB (CK-2) Troponin T NT-Pro-B Natriuret Pep Total Protein Albumin Triglycerides HDL Cholesterol Folate 7.01 L Urine WBC (Auto) Urine Creatinine Urine Total Protein Vancomycin Trough 06/20/19 06/20/19 06/20/19 17:42 21:55 23:24 WBC RBC Hgb Hct MCV MCH MCHC RDW Plt Count Lymph % (Auto) [place] % (Auto) Eos % (Auto) Lymph # [place] # Eos # Seg Neutrophils % Seg Neuts % (Manual) Lymphocytes % (Manual) Monocytes % (Manual) Eosinophils % (Manual) Nucleated RBC % Seg Neutrophils # Seg Neutrophils # Man Lymphocytes # (Manual) Monocytes # (Manual) Eosinophils # (Manual) PT INR APTT Fibrinogen POC ABG pH ABG pH POC ABG pCO2 POC ABG pO2 ABG pO2 ABG HCO3 ABG O2 Saturation ABG Base Excess ABG Hemoglobin Oxyhemoglobin Sodium Potassium Chloride Carbon Dioxide BUN Creatinine Glucose POC Glucose 255 H 218 H 215 H Uric Acid Calcium Phosphorus Magnesium Iron TIBC AST ALT Total Creatine Kinase CK-MB (CK-2) Troponin T NT-Pro-B Natriuret Pep Total Protein Albumin Triglycerides HDL Cholesterol Folate Urine WBC (Auto) Urine Creatinine Urine Total Protein Vancomycin Trough 06/21/19 06/21/19 06/21/19 03:32 03:40 05:20 WBC 12.8 H RBC 3.03 L Hgb 8.5 L Hct 26.2 L MCV MCH MCHC RDW 19.4 H Plt Count 131 L Lymph % (Auto) [place] % (Auto) Eos % (Auto) Lymph # [place] # Eos # Seg Neutrophils % Seg Neuts % (Manual) 78.0 H Lymphocytes % (Manual) 5.0 L Monocytes % (Manual) 11.0 H Eosinophils % (Manual) Nucleated RBC % Seg Neutrophils # Seg Neutrophils # Man 10.0 H Lymphocytes # (Manual) 0.6 L Monocytes # (Manual) 1.4 H Eosinophils # (Manual) 0.5 H PT INR APTT Fibrinogen POC ABG pH ABG pH 7.476 H POC ABG pCO2 POC ABG pO2 ABG pO2 162.0 H ABG HCO3 26.8 H ABG O2 Saturation 99.1 H ABG Base Excess 3.1 H ABG Hemoglobin 8.6 L Oxyhemoglobin Sodium Potassium Chloride Carbon Dioxide BUN Creatinine Glucose POC Glucose 202 H Uric Acid Calcium Phosphorus Magnesium Iron TIBC AST ALT Total Creatine Kinase CK-MB (CK-2) Troponin T NT-Pro-B Natriuret Pep Total Protein Albumin Triglycerides HDL Cholesterol Folate Urine WBC (Auto) Urine Creatinine Urine Total Protein Vancomycin Trough 06/21/19 06/21/19 06/21/19 05:20 12:30 18:18 WBC RBC Hgb Hct MCV MCH MCHC RDW Plt Count Lymph % (Auto) [place] % (Auto) Eos % (Auto) Lymph # [place] # Eos # Seg Neutrophils % Seg Neuts % (Manual) Lymphocytes % (Manual) Monocytes % (Manual) Eosinophils % (Manual) Nucleated RBC % Seg Neutrophils # Seg Neutrophils # Man Lymphocytes # (Manual) Monocytes # (Manual) Eosinophils # (Manual) PT INR APTT Fibrinogen POC ABG pH ABG pH POC ABG pCO2 POC ABG pO2 ABG pO2 ABG HCO3 ABG O2 Saturation ABG Base Excess ABG Hemoglobin Oxyhemoglobin Sodium Potassium Chloride 97.7 L Carbon Dioxide BUN 69 H Creatinine Glucose 239 H POC Glucose 176 H 187 H Uric Acid Calcium Phosphorus Magnesium 2.40 H Iron TIBC AST ALT Total Creatine Kinase CK-MB (CK-2) Troponin T NT-Pro-B Natriuret Pep Total Protein Albumin Triglycerides HDL Cholesterol Folate Urine WBC (Auto) Urine Creatinine Urine Total Protein Vancomycin Trough 06/22/19 06/22/19 06/22/19 04:11 05:30 05:30 WBC 12.6 H RBC 3.10 L Hgb 8.7 L Hct 27.0 L MCV MCH MCHC RDW 19.8 H Plt Count Lymph % (Auto) [place] % (Auto) Eos % (Auto) Lymph # [place] # Eos # Seg Neutrophils % Seg Neuts % (Manual) Lymphocytes % (Manual) Monocytes % (Manual) 10.0 H Eosinophils % (Manual) Nucleated RBC % Seg Neutrophils # Seg Neutrophils # Man 8.7 H Lymphocytes # (Manual) Monocytes # (Manual) 1.3 H Eosinophils # (Manual) PT INR APTT Fibrinogen POC ABG pH ABG pH POC ABG pCO2 POC ABG pO2 ABG pO2 ABG HCO3 27.7 H ABG O2 Saturation ABG Base Excess 3.3 H ABG Hemoglobin 8.5 L Oxyhemoglobin 94.9 L Sodium Potassium Chloride Carbon Dioxide BUN 66 H Creatinine Glucose 103 H POC Glucose Uric Acid Calcium Phosphorus Magnesium Iron TIBC AST ALT Total Creatine Kinase CK-MB (CK-2) Troponin T NT-Pro-B Natriuret Pep Total Protein Albumin Triglycerides HDL Cholesterol Folate Urine WBC (Auto) Urine Creatinine Urine Total Protein Vancomycin Trough 06/22/19 06/22/19 06/23/19 17:43 23:25 02:00 WBC RBC Hgb Hct MCV MCH MCHC RDW Plt Count Lymph % (Auto) [place] % (Auto) Eos % (Auto) Lymph # [place] # Eos # Seg Neutrophils % Seg Neuts % (Manual) Lymphocytes % (Manual) Monocytes % (Manual) Eosinophils % (Manual) Nucleated RBC % Seg Neutrophils # Seg Neutrophils # Man Lymphocytes # (Manual) Monocytes # (Manual) Eosinophils # (Manual) PT INR APTT Fibrinogen POC ABG pH ABG pH 7.469 H POC ABG pCO2 POC ABG pO2 ABG pO2 58.7 L ABG HCO3 28.0 H ABG O2 Saturation 94.6 L ABG Base Excess 4.0 H ABG Hemoglobin 7.1 L Oxyhemoglobin 92.2 L Sodium Potassium Chloride Carbon Dioxide BUN Creatinine Glucose POC Glucose 143 H 106 H Uric Acid Calcium Phosphorus Magnesium Iron TIBC AST ALT Total Creatine Kinase CK-MB (CK-2) Troponin T NT-Pro-B Natriuret Pep Total Protein Albumin Triglycerides HDL Cholesterol Folate Urine WBC (Auto) Urine Creatinine Urine Total Protein Vancomycin Trough 06/23/19 06/23/19 05:24 05:24 WBC 12.6 H RBC 2.96 L Hgb 8.3 L Hct 25.5 L MCV MCH MCHC RDW 20.2 H Plt Count Lymph % (Auto) [place] % (Auto) Eos % (Auto) Lymph # [place] # Eos # Seg Neutrophils % Seg Neuts % (Manual) Lymphocytes % (Manual) 12.0 L Monocytes % (Manual) 11.0 H Eosinophils % (Manual) 6.0 H Nucleated RBC % Seg Neutrophils # Seg Neutrophils # Man 8.8 H Lymphocytes # (Manual) Monocytes # (Manual) 1.4 H Eosinophils # (Manual) 0.8 H PT INR APTT Fibrinogen POC ABG pH ABG pH POC ABG pCO2 POC ABG pO2 ABG pO2 ABG HCO3 ABG O2 Saturation ABG Base Excess ABG Hemoglobin Oxyhemoglobin Sodium 146 H Potassium 3.5 L Chloride Carbon Dioxide BUN 48 H Creatinine Glucose 123 H POC Glucose Uric Acid Calcium Phosphorus Magnesium Iron TIBC AST ALT Total Creatine Kinase CK-MB (CK-2) Troponin T NT-Pro-B Natriuret Pep Total Protein Albumin Triglycerides HDL Cholesterol Folate Urine WBC (Auto) Urine Creatinine Urine Total Protein Vancomycin Trough
[2019-06-23] MEDS: ACETAMINOPHEN 325 MG/10.15 ML ORAL LIQD UNIT DOSE PO PRN ×2 (11:46→18:10)
--- NOTE | 2019-06-23 12:40 | Progress Note ---
Assessment and Plan - Patient Problems (1) Acute respiratory failure Current Visit: Yes Status: Acute Qualifiers: Respiratory failure complication: hypoxia Qualified Code(s): J96.01 - Acute respiratory failure with hypoxia Plan to address problem: Pt stable. s/p perc trach and PEG. No apparent complications. Routine trach/PEG care. Will sign-off. Please call with questions. Time=10min Subjective Date of service: 06/23/19 Patient Reports: Positive: other (no issues with trach/PEG. Tolerating tube feeds) Objective Vital Signs - 12hr 06/23/19 06/23/19 06/23/19 01:00 01:18 01:30 Temperature Pulse Rate 110 H 109 H Pulse Rate [ 100 H From Monitor] Respiratory 24 20 Rate Blood Pressure 144/67 137/69 O2 Sat by Pulse 92 100 97 Oximetry O2 Sat by Pulse Oximetry [ Assessment] 06/23/19 06/23/19 06/23/19 02:00 02:30 03:00 Temperature Pulse Rate 109 H 112 H 109 H Pulse Rate [ From Monitor] Respiratory 21 21 23 Rate Blood Pressure 146/63 129/62 135/64 O2 Sat by Pulse 96 93 97 Oximetry O2 Sat by Pulse Oximetry [ Assessment] 06/23/19 06/23/19 06/23/19 03:30 03:57 04:00 Temperature 99.2 F Pulse Rate 108 H 109 H Pulse Rate [ 100 H From Monitor] Respiratory 20 17 Rate Blood Pressure 135/64 172/85 O2 Sat by Pulse 96 96 Oximetry O2 Sat by Pulse Oximetry [ Assessment] 06/23/19 06/23/19 06/23/19 04:30 04:51 05:00 Temperature Pulse Rate 115 H 113 H 113 H Pulse Rate [ From Monitor] Respiratory 19 25 H Rate Blood Pressure 175/81 172/78 178/76 O2 Sat by Pulse 94 98 94 Oximetry O2 Sat by Pulse Oximetry [ Assessment] 06/23/19 06/23/19 06/23/19 05:30 06:00 06:30 Temperature Pulse Rate 108 H 103 H 105 H Pulse Rate [ From Monitor] Respiratory 25 H 17 22 Rate Blood Pressure 151/74 164/64 141/59 O2 Sat by Pulse 95 94 95 Oximetry O2 Sat by Pulse Oximetry [ Assessment] 06/23/19 06/23/19 06/23/19 07:00 07:30 08:00 Temperature 101.0 F H Pulse Rate 107 H 106 H 108 H Pulse Rate [ From Monitor] Respiratory 21 24 25 H Rate Blood Pressure 142/59 148/65 159/65 O2 Sat by Pulse 95 96 95 Oximetry O2 Sat by Pulse Oximetry [ Assessment] 06/23/19 06/23/19 06/23/19 08:30 08:55 08:59 Temperature Pulse Rate 107 H 108 H Pulse Rate [ From Monitor] Respiratory 23 Rate Blood Pressure 150/65 157/70 O2 Sat by Pulse 94 96 Oximetry O2 Sat by Pulse 97 Oximetry [ Assessment] 06/23/19 06/23/19 06/23/19 09:00 09:30 10:00 Temperature Pulse Rate 105 H 97 H 110 H Pulse Rate [ From Monitor] Respiratory 24 19 22 Rate Blood Pressure 159/74 140/61 159/90 O2 Sat by Pulse 95 96 96 Oximetry O2 Sat by Pulse Oximetry [ Assessment] 06/23/19 06/23/19 06/23/19 10:30 11:00 11:30 Temperature Pulse Rate 111 H 111 H 112 H Pulse Rate [ From Monitor] Respiratory 24 22 32 H Rate Blood Pressure 173/82 157/78 151/63 O2 Sat by Pulse 95 96 95 Oximetry O2 Sat by Pulse Oximetry [ Assessment] 06/23/19 06/23/19 06/23/19 11:59 12:00 12:30 Temperature 101.5 F H Pulse Rate 113 H 112 H Pulse Rate [ From Monitor] Respiratory 29 H 28 H Rate Blood Pressure 137/62 130/66 O2 Sat by Pulse 94 95 Oximetry O2 Sat by Pulse Oximetry [ Assessment] - General physical appearance no distress, no pain, obese, other (awake) - Neck other (trach in place. No drainage, bleeding, or hematoma) - Respiratory normal expansion, normal respiratory effort - Abdomen soft, not tender, other (PEG in place. Loosened collar. No drainage, bleeding or hematoma) - Labs 06/23/19 05:24 06/23/19 05:24 Diabetes panel 06/23/19 Range/Units 05:24 Sodium 146 H (137-145) mmol/L Potassium 3.5 L (3.6-5.0) mmol/L Chloride 106.6 (98-107) mmol/L Carbon Dioxide 25 (22-30) mmol/L BUN 48 H (9-20) mg/dL Creatinine 0.8 (0.8-1.5) mg/dL Glucose 123 H (75-100) mg/dL Calcium 8.9 (8.4-10.2) mg/dL Calcium panel 06/23/19 Range/Units 05:24 Calcium 8.9 (8.4-10.2) mg/dL Pituitary panel 06/23/19 Range/Units 05:24 Sodium 146 H (137-145) mmol/L Potassium 3.5 L (3.6-5.0) mmol/L Chloride 106.6 (98-107) mmol/L Carbon Dioxide 25 (22-30) mmol/L BUN 48 H (9-20) mg/dL Creatinine 0.8 (0.8-1.5) mg/dL Glucose 123 H (75-100) mg/dL Calcium 8.9 (8.4-10.2) mg/dL Adrenal panel 06/23/19 Range/Units 05:24 Sodium 146 H (137-145) mmol/L Potassium 3.5 L (3.6-5.0) mmol/L Chloride 106.6 (98-107) mmol/L Carbon Dioxide 25 (22-30) mmol/L BUN 48 H (9-20) mg/dL Creatinine 0.8 (0.8-1.5) mg/dL Glucose 123 H (75-100) mg/dL Calcium 8.9 (8.4-10.2) mg/dL
--- NOTE | 2019-06-23 19:38 | Progress Note ---
Assessment and Plan Assessment and plan: 34-year-old man with morbid obesity was brought to the hospital for shortness of breath and insomnia. He was found to have severe hypoxia and bradycardia who then became pulseless, he was cyanotic and he was intubated after receiving CPR with 2 rounds of epinephrine. Patient was intubated, extubated and reintubated, unable to wean vent dependent, underwent trach and PEG on 06/22/2019 --Acute respiratory failure; vent dependent/status post trach and PEG Continue ventilatory support, trach care, nebulizers Pulmonary critical following --Febrile illness; Patient is being monitored off antibiotics Follow cultures, supportive care. --Obesity hypoventilation syndrome Continue ventilatory support, nebulizers Pulmonary critical following --Status post cardiac arrest mild anoxic brain injury patient's mentation is improved ., EEG was negative for seizures and neurology consult appreciated. --Severe malnutrition Dysphasia; dw with his mom, she is agreeable to PEG tube, GS consulted Dietitian input appreciated, continue tube feeds --Anemia of chronic disease : Closely monitor H&H and transfuse as needed. 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 Patient is on Eliquis --Acute kidney injury due to ATN : Requiring dialysis Resolved, nephrology following. --Hypernatremia: Trending down, closely monitor --Hypokalemia hypomagnesemia: Replace as needed Per protocol monitor electrolytes --Morbid obesity; will need weight loss program upon discharge --DVT prophylaxis; scd for now Discharge planning LTAC placement Multiple social and financial/insurance issues CCT 33 minutes Hospitalist Physical - Constitutional Vitals: Temp Pulse Resp BP Pulse Ox 101.9 F H 93 H 28 H 206/134 91 06/23/19 16:00 06/23/19 18:23 06/23/19 18:00 06/23/19 18:23 06/23/19 18:00 General appearance: Present: no acute distress, obese (Morbidly obese), other (Tracheostomy on vent) - EENT Eyes: Present: PERRL, EOM intact - Neck Neck: Present: supple, normal ROM - Respiratory Respiratory effort: normal Respiratory: bilateral: diminished, rhonchi, negative: rales, wheezing - Cardiovascular Rhythm: regular Heart Sounds: Present: S1 & S2 - Extremities Extremities: no ischemia, No edema - Abdominal General gastrointestinal: soft, non-tender, non-distended - Integumentary Integumentary: Present: clear, warm - Psychiatric Psychiatric: other (On vent) - Neurologic Neurologic: other (On vent) Results - Labs CBC & Chem 7: 06/23/19 05:24 06/23/19 05:24 Labs: Laboratory Last Values WBC 12.6 K/mm3 (4.5-11.0) H 06/23/19 05:24 RBC 2.96 M/mm3 (3.65-5.03) L 06/23/19 05:24 Hgb 8.3 gm/dl (11.8-15.2) L 06/23/19 05:24 Hct 25.5 % (35.5-45.6) L 06/23/19 05:24 MCV 86 fl (84-94) 06/23/19 05:24 MCH 28 pg (28-32) 06/23/19 05:24 MCHC 33 % (32-34) 06/23/19 05:24 RDW 20.2 % (13.2-15.2) H 06/23/19 05:24 Plt Count 186 K/mm3 (140-440) 06/23/19 05:24 Lymph % (Auto) 9.2 % (13.4-35.0) L 06/20/19 04:40 Hayes % (Auto) 12.0 % (0.0-7.3) H 06/20/19 04:40 Eos % (Auto) 5.2 % (0.0-4.3) H 06/20/19 04:40 Baso % (Auto) 0.3 % (0.0-1.8) 06/20/19 04:40 Lymph # 0.9 K/mm3 (1.2-5.4) L 06/20/19 04:40 Hayes # 1.2 K/mm3 (0.0-0.8) H 06/20/19 04:40 Eos # 0.5 K/mm3 (0.0-0.4) H 06/20/19 04:40 Baso # 0.0 K/mm3 (0.0-0.1) 06/20/19 04:40 Add Manual Diff Complete 06/23/19 05:24 Total Counted 100 06/23/19 05:24 Seg Neutrophils % 73.3 % (40.0-70.0) H 06/20/19 04:40 Seg Neuts % (Manual) 70.0 % (40.0-70.0) 06/23/19 05:24 Band Neutrophils % 1.0 % 06/23/19 05:24 Lymphocytes % (Manual) 12.0 % (13.4-35.0) L 06/23/19 05:24 Reactive Lymphs % (Man) 0 % 06/23/19 05:24 Monocytes % (Manual) 11.0 % (0.0-7.3) H 06/23/19 05:24 Eosinophils % (Manual) 6.0 % (0.0-4.3) H 06/23/19 05:24 Basophils % (Manual) 0 % (0.0-1.8) 06/23/19 05:24 Metamyelocytes % 0 % 06/23/19 05:24 Myelocytes % 0 % 06/23/19 05:24 Promyelocytes % 0 % 06/23/19 05:24 Blast Cells % 0 % 06/23/19 05:24 Nucleated RBC % Not Reportable 06/23/19 05:24 Seg Neutrophils # 7.6 K/mm3 (1.8-7.7) 06/20/19 04:40 Seg Neutrophils # Man 8.8 K/mm3 (1.8-7.7) H 06/23/19 05:24 Band Neutrophils # 0.1 K/mm3 06/23/19 05:24 Lymphocytes # (Manual) 1.5 K/mm3 (1.2-5.4) 06/23/19 05:24 Abs React Lymphs (Man) 0.0 K/mm3 06/23/19 05:24 Monocytes # (Manual) 1.4 K/mm3 (0.0-0.8) H 06/23/19 05:24 Eosinophils # (Manual) 0.8 K/mm3 (0.0-0.4) H 06/23/19 05:24 Basophils # (Manual) 0.0 K/mm3 (0.0-0.1) 06/23/19 05:24 Metamyelocytes # 0.0 K/mm3 06/23/19 05:24 Myelocytes # 0.0 K/mm3 06/23/19 05:24 Promyelocytes # 0.0 K/mm3 06/23/19 05:24 Blast Cells # 0.0 K/mm3 06/23/19 05:24 WBC Morphology Not Reportable 06/23/19 05:24 Hypersegmented Neuts Not Reportable 06/23/19 05:24 Hyposegmented Neuts Not Reportable 06/23/19 05:24 Hypogranular Neuts Not Reportable 06/23/19 05:24 Smudge Cells Not Reportable 06/23/19 05:24 Toxic Granulation Not Reportable 06/23/19 05:24 Toxic Vacuolation Not Reportable 06/23/19 05:24 Dohle Bodies Not Reportable 06/23/19 05:24 Pelger-Huet Anomaly Not Reportable 06/23/19 05:24 Renea Rods Not Reportable 06/23/19 05:24 Platelet Estimate Consistent w auto 06/23/19 05:24 Clumped Platelets Not Reportable 06/23/19 05:24 Plt Clumps, EDTA Not Reportable 06/23/19 05:24 Large Platelets Not Reportable 06/23/19 05:24 Giant Platelets Not Reportable 06/23/19 05:24 Platelet Satelliting Not Reportable 06/23/19 05:24 Plt Morphology Comment Not Reportable 06/23/19 05:24 RBC Morphology Not Reportable 06/23/19 05:24 Dimorphic RBCs Not Reportable 06/23/19 05:24 Polychromasia Not Reportable 06/23/19 05:24 Hypochromasia Not Reportable 06/23/19 05:24 Poikilocytosis Not Reportable 06/23/19 05:24 Anisocytosis 1+ 06/23/19 05:24 Microcytosis Not Reportable 06/23/19 05:24 Macrocytosis Not Reportable 06/23/19 05:24 Spherocytes Not Reportable 06/23/19 05:24 Pappenheimer Bodies Not Reportable 06/23/19 05:24 Sickle Cells Not Reportable 06/23/19 05:24 Target Cells Not Reportable 06/23/19 05:24 Tear Drop Cells Rare 06/23/19 05:24 Ovalocytes Not Reportable 06/23/19 05:24 Stomatocytes 3+ 06/23/19 05:24 Helmet Cells Not Reportable 06/23/19 05:24 [place] Bodies Not Reportable 06/23/19 05:24 Barnett Rings Not Reportable 06/23/19 05:24 Dennis Cells Not Reportable 06/23/19 05:24 Bite Cells Not Reportable 06/23/19 05:24 Crenated Cell Not Reportable 06/23/19 05:24 Elliptocytes Not Reportable 06/23/19 05:24 Acanthocytes (Spur) Not Reportable 06/23/19 05:24 Rouleaux Not Reportable 06/23/19 05:24 Hemoglobin C Crystals Not Reportable 06/23/19 05:24 Schistocytes Not Reportable 06/23/19 05:24 Malaria parasites Not Reportable 06/23/19 05:24 Syed Bodies Not Reportable 06/23/19 05:24 Hem Pathologist Commnt No 06/23/19 05:24 PT 15.4 Sec. (12.2-14.9) H 05/01/19 Unknown INR 1.23 (0.87-1.13) H 05/01/19 Unknown APTT 22.7 Sec. (24.2-36.6) L 05/01/19 Unknown Fibrinogen 194 mg/dl (211-480) L 06/17/19 12:45 Heparin Anti-Xa, Unfract Negative (Negative) 06/17/19 12:45 POC ABG pH 7.462 (7.35-7.45) H 06/05/19 03:52 ABG pH 7.469 pH Units (7.350-7.450) H 06/23/19 02:00 POC ABG pCO2 39.8 (35-45) 06/05/19 03:52 ABG pCO2 39.4 mm Hg 06/23/19 02:00 POC ABG pO2 86 (80-105) 06/05/19 03:52 ABG pO2 58.7 mm Hg (80.0-90.0) L 06/23/19 02:00 POC ABG HCO3 28.4 (22-26 mml/L) 06/05/19 03:52 ABG HCO3 28.0 mmol/L (20.0-26.0) H 06/23/19 02:00 POC ABG Total CO2 30 (23-27mmol/L) 06/05/19 03:52 POC ABG O2 Sat 97 06/05/19 03:52 ABG O2 Saturation 94.6 % (95.0-99.0) L 06/23/19 02:00 ABG O2 Content 9.2 (0.0-44) 06/23/19 02:00 POC ABG Base Excess 5 ((-2) - (+3)mmol/L) 06/05/19 03:52 ABG Base Excess 4.0 mmol/L (-2.0-3.0) H 06/23/19 02:00 ABG Hemoglobin 7.1 gm/dl (14.0-18.0) L 06/23/19 02:00 ABG Carboxyhemoglobin 2.0 % (0.0-5.0) 06/23/19 02:00 ABG Methemoglobin 0.5 % (0.0-1.5) 06/23/19 02:00 Oxyhemoglobin 92.2 % (95.0-99.0) L 06/23/19 02:00 FiO2 30 % 06/23/19 02:00 Sodium 146 mmol/L (137-145) H 06/23/19 05:24 Potassium 3.5 mmol/L (3.6-5.0) L 06/23/19 05:24 Chloride 106.6 mmol/L (98-107) 06/23/19 05:24 Carbon Dioxide 25 mmol/L (22-30) 06/23/19 05:24 Anion Gap 18 mmol/L 06/23/19 05:24 BUN 48 mg/dL (9-20) H 06/23/19 05:24 Creatinine 0.8 mg/dL (0.8-1.5) 06/23/19 05:24 Estimated GFR > 60 ml/min 06/23/19 05:24 BUN/Creatinine Ratio 60 % 06/23/19 05:24 Glucose 123 mg/dL (75-100) H 06/23/19 05:24 POC Glucose 111 (70-105) H 06/23/19 17:39 Osmolality 327 Mosm/kg 05/07/19 13:45 Uric Acid 18.0 mg/dL (3.5-7.6) H 05/07/19 13:45 Calcium 8.9 mg/dL (8.4-10.2) 06/23/19 05:24 Phosphorus 3.70 mg/dL (2.5-4.5) 06/10/19 05:45 Magnesium 1.90 mg/dL (1.7-2.3) 06/23/19 05:24 Iron 45 ug/dL (49-181) L 06/20/19 09:12 TIBC 110 mcg/dL (250-450) L 06/20/19 09:12 Ferritin 315.2 ng/mL (13.0-400.0) 06/20/19 09:12 Total Bilirubin 0.50 mg/dL (0.1-1.2) 06/08/19 04:20 AST 23 units/L (5-40) 06/08/19 04:20 ALT 66 units/L (7-56) H 06/08/19 04:20 Alkaline Phosphatase 59 units/L (35-129) 06/08/19 04:20 Total Creatine Kinase 131 units/L (55-170) 05/02/19 04:41 CK-MB (CK-2) 5.2 ng/mL (0.0-4.0) H 05/02/19 04:41 CK-MB (CK-2) Rel Index 3.9 (0-4) 05/02/19 04:41 Troponin T 0.067 ng/mL (0.00-0.029) H D 05/02/19 04:41 NT-Pro-B Natriuret Pep 6831 pg/mL (0-450) H 05/01/19 Unknown Total Protein 5.5 g/dL (6.3-8.2) L 06/08/19 04:20 Albumin 2.9 g/dL (3.9-5) L 06/08/19 04:20 Albumin/Globulin Ratio 1.1 % 06/08/19 04:20 Triglycerides 210 mg/dL (2-149) H 06/19/19 04:30 Cholesterol 173 mg/dL (50-199) 05/02/19 00:06 LDL Cholesterol Direct 126 mg/dL (50-130) 05/02/19 00:06 HDL Cholesterol 18 mg/dL (40-59) L 05/02/19 00:06 Cholesterol/HDL Ratio 9.61 % 05/02/19 00:06 Vitamin B12 353.0 pg/mL (211-911) 06/20/19 09:12 Folate 7.01 ng/mL (7.3-26.0) L 06/20/19 09:12 Procalcitonin 0.05 ng/mL (<0.15) 06/17/19 12:45 Urine Color Yellow (Yellow) 06/17/19 12:45 Urine Turbidity Slightly-cloudy (Clear) 06/17/19 12:45 Urine pH 5.0 (5.0-7.0) 06/17/19 12:45 Ur Specific [place] 1.013 (1.003-1.030) 06/17/19 12:45 Urine Protein <15 mg/dl mg/dL (Negative) 06/17/19 12:45 Urine Glucose (UA) Neg mg/dL (Negative) 06/17/19 12:45 Urine Ketones Neg mg/dL (Negative) 06/17/19 12:45 Urine Blood Sm (Negative) 06/17/19 12:45 Urine Nitrite Neg (Negative) 06/17/19 12:45 Urine Bilirubin Neg (Negative) 06/17/19 12:45 Urine Urobilinogen < 2.0 mg/dL (<2.0) 06/17/19 12:45 Ur Leukocyte Esterase Neg (Negative) 06/17/19 12:45 Urine WBC (Auto) 2.0 /HPF (0.0-6.0) 06/17/19 12:45 Urine RBC (Auto) 2.0 /HPF (0.0-6.0) 06/17/19 12:45 U Epithel Cells (Auto) < 1.0 /HPF (0-13.0) 06/17/19 12:45 Urine Bacteria (Auto) 1+ /HPF (Negative) 05/20/19 12:00 Uric Acid Crystals 3+ 05/03/19 10:55 Urine Mucus Few /HPF 06/17/19 12:45 Urine Yeast (Budding) 3+ /HPF 05/20/19 12:00 Urine Creatinine 292.8 mg/dL (0.1-20.0) H 05/07/19 22:40 Urine Sodium 11 mmol/L 05/07/19 22:40 Urine Total Protein 269 mg/dL (5-11.8) H 05/07/19 22:40 Vancomycin Trough 20.5 ug/mL (5.0-20.0) H 05/15/19 09:00 Random Vancomycin 11.5 ug/mL (0-40.0) 05/27/19 06:00 AMNA Screen Negative (Negative) 05/07/19 13:45 Heparin-induced Plt Ab Negative (Negative) 06/17/19 12:45 UF Heparin High Dose 13 % Release 06/17/19 12:45 YUNG UFH Low Dose 0.1 8 % Release 06/17/19 12:45 YUNG UFH Low Dose 0.5 7 % Release 06/17/19 12:45 Hepatitis A IgM Ab Non-reactive (NonReactive) 05/07/19 13:45 Hep Bs Antigen Non-reactive (Negative) 05/07/19 13:45 Hep B Core IgM Ab Non-reactive (NonReactive) 05/07/19 13:45 Hepatitis C Antibody Non-reactive (NonReactive) 05/07/19 13:45 Influenza A (Rapid) Negative (Negative) 06/17/19 11:35 Influenza B (Rapid) Negative (Negative) 06/17/19 11:35 Active Medications - Current Medications Current Medications: Generic Name Dose Route Start Last Admin Trade Name Freq PRN Reason Stop Dose Admin Acetaminophen 650 mg 06/17/19 10:00 06/23/19 18:10 Tylenol PO 650 mg Q6H PRN Administration FOR TEMP >/=100.4 Lipase/Protease/Amylase 1 each 05/14/19 15:01 Pancreaztanvir Fletcher 10,500 Unit FEEDTUBE PRN PRN For Clogged Feeding Tube Apixaban 2.5 mg 06/23/19 22:00 Eliquis PO Q12HR VICKEY Protocol Dextrose 50 gm 05/01/19 20:24 D50w (25gm) Vial IV Q30MIN PRN Hypoglycemia Protocol Famotidine 20 mg 06/17/19 10:00 06/23/19 10:25 Pepcid PO 20 mg BID VICKEY Administration Ferrous Sulfate 308 mg 06/18/19 12:00 06/23/19 10:25 Ferrous Sulfate PO 308 mg QDAY VICKEY Administration Hydrophilic Ointment 1 applic 06/16/19 17:34 Vaseline Lip Therapy TP Q2HR PRN Dry Lips Propofol 1,000 mg in 100 mls @ 7.716 mls/hr 06/16/19 21:00 06/23/19 18:39 Diprivan 10 Mg/Ml IV 0 mcg/kg/min TITR VICKEY 0 mls/hr Titration Protocol 5 MCG/KG/MIN Fentanyl Citrate 2,000 mcg in 100 mls @ 12.86 mls/hr 06/17/19 14:00 Fentanyl Drip Premix IV TITR VICKEY Protocol 1 MCG/KG/HR Insulin Human Lispro 0 unit 06/01/19 14:00 06/23/19 18:11 Humalog SUB-Q Not Given Q6HR VICKEY Protocol Labetalol HCl 10 mg 06/11/19 22:48 06/23/19 18:23 Labetalol IV 10 mg Q4H PRN Administration BP >170/105; hold for HR <60 Methylprednisolone Sodium Succinate 20 mg 06/22/19 12:00 06/23/19 10:24 Solu-Medrol IV 20 mg Q24HR VICKEY Administration Multi-Ingred Cream/Lotion/Oil/Oint 1 applic 06/16/19 18:00 Artificial Tears Ophth Oint OU Q4HR PRN Dry Eye(s) Multivit/Ca Carb/B Cmplx/FA/Prenat 1 cap 06/23/19 10:00 06/23/19 10:25 Renal Caps PO 1 cap QDAY VICKEY Administration Potassium Chloride 40 meq 06/19/19 10:00 06/23/19 10:24 Potassium Chloride FEEDTUBE 40 meq QDAY VICKEY Administration Simple Syrup 15 ml 05/14/19 15:01 Simple Syrup FEEDTUBE PRN PRN Hypoglycemia Simple Syrup 30 ml 05/14/19 15:01 Simple Syrup FEEDTUBE PRN PRN Hypoglycemia Sodium Bicarbonate 325 mg 05/14/19 15:01 Sodium Bicarbonate FEEDTUBE PRN PRN For Clogged Feeding Tube Nutrition/Malnutrition Assess - Dietary Evaluation Nutrition/Malnutrition Findings: Nutrition Notes Start: 05/04/19 12:54 Freq: Status: Active Protocol: Document 06/23/19 11:53 MK (Rec: 06/23/19 12:13 MK [id number]) Co-Sign 06/23/19 11:53 LP Nutrition Notes Initial or Follow up Assessment Current Diagnosis Acute Kidney Injury,Sepsis, Respiratory Failure Other Pertinent Diagnosis HD Current Diet Nepro 1.8 at 50 ml/hr Labs/Tests Na 146 K 3.5 BG 123 Pertinent Medications Solu-Medrol KCl at 40 meq Height 6 ft 4 in Weight 257.2 kg [place] Body Weight (kg) 91.81 BMI 69.0 Weight Status Morbidly Obese Subjective/Other Information FU for TF tolerance. PEG and trach placed. Nepro 1.8 at 50 ml/hr initiated. Percent of energy/protein needs met: 0%/0% Burn Absent Trauma Absent GI Symptoms None Current % PO Negligible Minimum of two criteria No Fluid Accumulation Moderate to Severe (severe) #1 Nutrition Diagnosis Inadequate oral intake Diagnosis Progress(for reassessment Continues documentation) Is patient on ventilator? Yes Is Patient Ambulatory and/or Out of Bed No REE-([place]-confined to bed) 4342.284 Kcal/Kg value to use for calculation 8 Approximate Energy Requirements Using 2057 kcal/Kg Calculation Used for Recommendations Kcal/kg Additional Notes PRO needs: 73 - 91 g (0.8 - 1 g/kg IBW) Fluid needs: 1 ml/kcal Nutrition Intervention Change Diet Order: Continue TF Nutrition Support: Nepro 1.8 at 50 ml/hr Flush with 300ml q4h Kcal 2,160 Protein (gm) 97 Fluid (mL) 872 Goal #1 TF tolerance [ End ] Goal #2 Meet at least 75% kcal/PRO needs via TF Anticipated Discharge Needs: Unable to determine at this time Follow-Up By: 06/25/19 Additional Comments FU TF tolerance and Na labs
[2019-06-23] MEDS: APIXABAN 2.5 MG TAB PO SCH (22:19)
[2019-06-24] MEDS: INSULIN LISPRO 100 UNIT/ML SUB-Q SCH ×3 (06:17→12:23)
[2019-06-24 07:14] LABS: Basophils # (Auto) 0.1 K/mm3 (0.0-0.1); Basophils % (Auto) 0.9 % (0.0-1.8); Eosinophils # (Auto) 0.5 K/mm3 (0.0-0.4); Eosinophils % (Auto) 4.4 % (0.0-4.3); Hematocrit 24.9 % (35.5-45.6); Lymphocytes # (Auto) 2.9 K/mm3 (1.2-5.4); Lymphocytes % (Auto) 23.8 % (13.4-35.0); Mean Corpuscular HGB Conc 32 % (32-34); Mean Corpuscular Volume 87 fl (84-94); Monocytes # (Auto) 1.1 K/mm3 (0.0-0.8); Monocytes % (Auto) 8.8 % (0.0-7.3); Red Blood Count 2.87 M/mm3 (3.65-5.03)
[2019-06-24 07:17] LABS: Platelet Count 149 K/mm3 (140-440); Red Cell Distribution Width 20.5 % (13.2-15.2)
[2019-06-24 07:43] LABS: BUN/Creatinine Ratio 48; Blood Urea Nitrogen 29 mg/dL (9-20); Hemolysis Index 27
[2019-06-24] MEDS ORDERED: MAGNESIUM SULFATE 2 GM/50 ML BAG IV ONE (09:29)
[2019-06-24] MEDS: ACETAMINOPHEN 325 MG/10.15 ML ORAL LIQD UNIT DOSE PO PRN (09:49)
[2019-06-24] MEDS: methylPREDNISolone Sod Succinate 40 MG/1 ML INJ IV SCH (09:49)
[2019-06-24] MEDS: POTASSIUM CHLORIDE 20 MEQ PACKET FEEDTUBE SCH (09:50)
[2019-06-24] MEDS: FAMOTIDINE 20 MG TAB PO SCH ×2 (09:51→22:26)
[2019-06-24] MEDS: APIXABAN 2.5 MG TAB PO SCH ×2 (09:51→22:26)
[2019-06-24] MEDS: FOLIC ACID/VIT B COMP W-C 1 MG (RENAL CAPS) PO SCH (09:51)
[2019-06-24] MEDS: FERROUS SULFATE 308 MG (62mg Elemental Iron) / 7 ML ELIXIR PO SCH (09:52)
--- NOTE | 2019-06-24 10:00 | Progress Note ---
Assessment and Plan 34 y/o male with acute hypoxic, hypercapnic respiratory failure currently ventilated and sedated, now with persistent fevers and seizure and on HD 06/24/2019: Will attempt T-piece later today, if tolerates, then will continue trial indefinitely. PT/OT will need to start seeing him again. Will drop steroids to 10 daily (PO) starting Friday morning. 06/23/2019: PSV all day today and tomorrow. Will start T-piece either tomorrow or Friday. Tolerating Feeds 06/22/2019: Patient scheduled for OR today. Plan as outlined in Dr. Saez's note from yesterday. Discussed with patient again this am. Really appreciate surgery help with this and the promptness of procedure. Will follow up post-op later today. 06/21/2019: Unfortunately re-intubated last week. Will need Trach and Peg, but I doubt peg will happen secondary to his size. Will discuss with surgery and maybe they can just put in a number 6 XLT from the start. I think he will get off the vent relatively quickly and can start to eat. This trach will be indefinite. I have explained this to him. I have not seen his family at the bedside during this admission but Im told they come in the evenings. 06/12/2019: Started HCTZ 50 daily and Labetalol 100 TID. Will increase Labetalol to 200 TID. Already on Clonidine patch. Continue Minoxidil. Will start to wean drip. PT/OT. Feeds through NG now that this is in place. Will need speech re-evaluation. Will order NT suctioning at least [id number] for the next 24 hours. 06/11/2019: Bipap at night and PRN. Na levels are increasing. Agree with D5W. Unable to place DH, several nurses tried. Will ask speech to come by and reassess now that patient is more willing to cooperate. . Continue PT/OT, sat up on side of bed yesterday. Continue IMCU monitoring for now. As stated be low, patient was intubated for 37 days. CCT 31 minutes. Subjective Date of service: 06/24/19 Principal diagnosis: anemia - LOw PLT Interval history: no acute events. Awake and alert. Tolerating PSV Objective Vital Signs - 12hr 06/23/19 06/23/19 06/23/19 22:00 22:15 22:30 Temperature Pulse Rate 108 H 108 H 106 H Respiratory 26 H 27 H 15 Rate Blood Pressure 172/101 176/96 177/81 O2 Sat by Pulse 95 92 93 Oximetry O2 Sat by Pulse Oximetry [ Assessment] 06/23/19 06/23/19 06/23/19 22:46 22:55 23:00 Temperature Pulse Rate 103 H 103 H 103 H Respiratory 29 H 24 Rate Blood Pressure 177/81 147/73 142/72 O2 Sat by Pulse 95 95 94 Oximetry O2 Sat by Pulse Oximetry [ Assessment] 06/23/19 06/23/19 06/23/19 23:15 23:20 23:25 Temperature Pulse Rate 103 H 101 H Respiratory 17 19 Rate Blood Pressure 142/72 147/73 O2 Sat by Pulse 96 96 Oximetry O2 Sat by Pulse 96 Oximetry [ Assessment] 06/23/19 06/23/19 06/24/19 23:30 23:45 00:00 Temperature 99.6 F Pulse Rate 97 H 105 H 104 H Respiratory 21 20 25 H Rate Blood Pressure 134/68 131/81 148/75 O2 Sat by Pulse 95 97 96 Oximetry O2 Sat by Pulse Oximetry [ Assessment] 06/24/19 06/24/19 06/24/19 00:15 00:30 00:45 Temperature Pulse Rate 103 H 103 H 101 H Respiratory 22 18 24 Rate Blood Pressure 151/84 144/76 141/75 O2 Sat by Pulse 96 96 96 Oximetry O2 Sat by Pulse Oximetry [ Assessment] 06/24/19 06/24/19 06/24/19 01:00 01:15 01:30 Temperature Pulse Rate 101 H 105 H 104 H Respiratory 21 18 16 Rate Blood Pressure 146/78 146/81 150/79 O2 Sat by Pulse 98 95 98 Oximetry O2 Sat by Pulse Oximetry [ Assessment] 06/24/19 06/24/19 06/24/19 01:45 02:00 02:15 Temperature Pulse Rate 99 H 98 H 105 H Respiratory 20 22 17 Rate Blood Pressure 135/68 135/68 150/84 O2 Sat by Pulse 95 97 98 Oximetry O2 Sat by Pulse Oximetry [ Assessment] 06/24/19 06/24/19 06/24/19 02:30 02:45 03:00 Temperature Pulse Rate 101 H 99 H 100 H Respiratory 22 18 21 Rate Blood Pressure 155/85 159/85 156/81 O2 Sat by Pulse 96 96 96 Oximetry O2 Sat by Pulse Oximetry [ Assessment] 06/24/19 06/24/19 06/24/19 03:15 03:30 03:40 Temperature Pulse Rate 100 H 100 H 101 H Respiratory 18 20 Rate Blood Pressure 151/82 154/84 O2 Sat by Pulse 96 96 Oximetry O2 Sat by Pulse Oximetry [ Assessment] 06/24/19 06/24/19 06/24/19 03:45 03:55 03:57 Temperature 100.2 F H 100.2 F H Pulse Rate 102 H Respiratory 17 Rate Blood Pressure 160/85 O2 Sat by Pulse 97 Oximetry O2 Sat by Pulse Oximetry [ Assessment] 06/24/19 06/24/19 06/24/19 04:00 04:15 04:16 Temperature Pulse Rate 101 H 103 H 103 H Respiratory 20 13 Rate Blood Pressure 157/86 155/82 155/82 O2 Sat by Pulse 96 97 Oximetry O2 Sat by Pulse Oximetry [ Assessment] 06/24/19 06/24/19 06/24/19 04:22 04:30 04:45 Temperature Pulse Rate 99 H 97 H Respiratory 25 H 21 Rate Blood Pressure 151/80 155/77 O2 Sat by Pulse 97 97 Oximetry O2 Sat by Pulse 96 Oximetry [ Assessment] 06/24/19 06/24/19 06/24/19 05:00 05:15 05:30 Temperature Pulse Rate 97 H 101 H 102 H Respiratory 22 23 22 Rate Blood Pressure 144/73 156/89 156/89 O2 Sat by Pulse 97 97 98 Oximetry O2 Sat by Pulse Oximetry [ Assessment] 06/24/19 06/24/19 06/24/19 05:45 06:00 06:15 Temperature Pulse Rate 100 H 99 H 97 H Respiratory 23 23 20 Rate Blood Pressure 157/90 155/86 148/79 O2 Sat by Pulse 96 96 Oximetry O2 Sat by Pulse Oximetry [ Assessment] 06/24/19 06/24/19 06/24/19 06:30 06:45 07:00 Temperature Pulse Rate 101 H 102 H 102 H Respiratory 22 17 21 Rate Blood Pressure 158/87 154/86 155/87 O2 Sat by Pulse 98 97 93 Oximetry O2 Sat by Pulse Oximetry [ Assessment] 06/24/19 06/24/19 06/24/19 07:15 07:30 07:45 Temperature Pulse Rate 102 H 104 H 101 H Respiratory 21 23 20 Rate Blood Pressure 160/85 158/86 165/86 O2 Sat by Pulse 96 98 Oximetry O2 Sat by Pulse Oximetry [ Assessment] 06/24/19 06/24/19 08:02 08:08 Temperature Pulse Rate 97 H 92 H Respiratory Rate Blood Pressure 146/77 146/77 O2 Sat by Pulse 98 98 Oximetry O2 Sat by Pulse Oximetry [ Assessment] Constitutional: other (morbidly obese male, critically ill on vent) Eyes: non-icteric ENT: oropharynx moist Neck: other (extremely large in circumference) Effort: normal Ascultation: Bilateral: diminished breath sounds (secondary to body habitus), rhonchi Cardiovascular: regular rate and rhythm (no mrg) Gastrointestinal: normoactive bowel sounds, soft, non-tender, other (obese) Integumentary: other (L hand is wrapped) Extremities: no cyanosis, pink and warm, other (1+ generalized edema) Neurologic: normal mental status, non-focal exam Psychiatric: mood appropriate, affect normal CBC and BMP: 06/24/19 06:53 06/24/19 06:53 ABG, PT/INR, D-dimer: ABG POC ABG pH 7.462 (7.35-7.45) H 06/05/19 03:52 ABG pH 7.469 pH Units (7.350-7.450) H 06/23/19 02:00 POC ABG pCO2 39.8 (35-45) 06/05/19 03:52 ABG pCO2 39.4 mm Hg 06/23/19 02:00 POC ABG pO2 86 (80-105) 06/05/19 03:52 ABG pO2 58.7 mm Hg (80.0-90.0) L 06/23/19 02:00 POC ABG HCO3 28.4 (22-26 mml/L) 06/05/19 03:52 POC ABG Total CO2 30 (23-27mmol/L) 06/05/19 03:52 POC ABG O2 Sat 97 06/05/19 03:52 ABG O2 Saturation 94.6 % (95.0-99.0) L 06/23/19 02:00 PT/INR, D-dimer PT 15.4 Sec. (12.2-14.9) H 05/01/19 Unknown INR 1.23 (0.87-1.13) H 05/01/19 Unknown Abnormal lab findings: Abnormal Labs 05/01/19 05/01/19 05/01/19 17:50 19:26 22:36 WBC RBC Hgb Hct MCV MCH MCHC RDW Plt Count Lymph % (Auto) [place] % (Auto) Eos % (Auto) Lymph # [place] # Eos # Seg Neutrophils % Seg Neuts % (Manual) Lymphocytes % (Manual) Monocytes % (Manual) Eosinophils % (Manual) Nucleated RBC % Seg Neutrophils # Seg Neutrophils # Man Lymphocytes # (Manual) Monocytes # (Manual) Eosinophils # (Manual) PT INR APTT Fibrinogen POC ABG pH 7.272 L 7.331 L ABG pH POC ABG pCO2 52.8 H POC ABG pO2 ABG pO2 ABG HCO3 ABG O2 Saturation ABG Base Excess ABG Hemoglobin Oxyhemoglobin Sodium 136 L Potassium 6.5 H* Chloride 97.2 L Carbon Dioxide BUN 60 H Creatinine Glucose 113 H POC Glucose Uric Acid Calcium Phosphorus Magnesium 2.40 H Iron TIBC AST 139 H ALT 154 H Total Creatine Kinase CK-MB (CK-2) Troponin T NT-Pro-B Natriuret Pep Total Protein Albumin 3.8 L Triglycerides HDL Cholesterol Folate Urine WBC (Auto) Urine Creatinine Urine Total Protein Vancomycin Trough 05/01/19 05/01/19 05/01/19 Unknown Unknown Unknown WBC 16.1 H RBC Hgb Hct MCV MCH MCHC RDW 17.2 H Plt Count Lymph % (Auto) [place] % (Auto) 9.6 H Eos % (Auto) Lymph # [place] # 1.5 H Eos # Seg Neutrophils % 73.0 H Seg Neuts % (Manual) Lymphocytes % (Manual) Monocytes % (Manual) Eosinophils % (Manual) Nucleated RBC % Seg Neutrophils # 11.7 H Seg Neutrophils # Man Lymphocytes # (Manual) Monocytes # (Manual) Eosinophils # (Manual) PT 15.4 H INR 1.23 H APTT 22.7 L Fibrinogen POC ABG pH ABG pH POC ABG pCO2 POC ABG pO2 ABG pO2 ABG HCO3 ABG O2 Saturation ABG Base Excess ABG Hemoglobin Oxyhemoglobin Sodium Potassium Chloride Carbon Dioxide BUN Creatinine Glucose POC Glucose Uric Acid Calcium Phosphorus Magnesium Iron TIBC AST ALT Total Creatine Kinase CK-MB (CK-2) Troponin T NT-Pro-B Natriuret Pep 6831 H Total Protein Albumin Triglycerides HDL Cholesterol Folate Urine WBC (Auto) Urine Creatinine Urine Total Protein Vancomycin Trough 05/01/19 05/02/19 05/02/19 Unknown 00:06 00:06 WBC RBC Hgb Hct MCV MCH MCHC RDW Plt Count Lymph % (Auto) [place] % (Auto) Eos % (Auto) Lymph # [place] # Eos # Seg Neutrophils % Seg Neuts % (Manual) Lymphocytes % (Manual) Monocytes % (Manual) Eosinophils % (Manual) Nucleated RBC % Seg Neutrophils # Seg Neutrophils # Man Lymphocytes # (Manual) Monocytes # (Manual) Eosinophils # (Manual) PT INR APTT Fibrinogen POC ABG pH ABG pH POC ABG pCO2 POC ABG pO2 ABG pO2 ABG HCO3 ABG O2 Saturation ABG Base Excess ABG Hemoglobin Oxyhemoglobin Sodium Potassium Chloride Carbon Dioxide BUN Creatinine Glucose POC Glucose Uric Acid Calcium Phosphorus 4.90 H Magnesium Iron TIBC AST ALT Total Creatine Kinase 226 H CK-MB (CK-2) 5.7 H Troponin T 0.044 H NT-Pro-B Natriuret Pep Total Protein Albumin Triglycerides 182 H HDL Cholesterol 18 L Folate Urine WBC (Auto) Urine Creatinine Urine Total Protein Vancomycin Trough 05/02/19 05/02/19 05/02/19 02:08 04:40 04:41 WBC 17.6 H RBC Hgb Hct MCV MCH 27 L MCHC RDW 17.4 H Plt Count Lymph % (Auto) 10.2 L [place] % (Auto) 11.0 H Eos % (Auto) Lymph # [place] # 1.9 H Eos # Seg Neutrophils % 78.0 H Seg Neuts % (Manual) Lymphocytes % (Manual) Monocytes % (Manual) Eosinophils % (Manual) Nucleated RBC % Seg Neutrophils # 13.8 H Seg Neutrophils # Man Lymphocytes # (Manual) Monocytes # (Manual) Eosinophils # (Manual) PT INR APTT Fibrinogen POC ABG pH ABG pH POC ABG pCO2 46.8 H POC ABG pO2 63 L ABG pO2 ABG HCO3 ABG O2 Saturation ABG Base Excess ABG Hemoglobin Oxyhemoglobin Sodium Potassium Chloride 96.3 L Carbon Dioxide BUN 63 H Creatinine 1.7 H Glucose POC Glucose Uric Acid Calcium Phosphorus Magnesium Iron TIBC AST ALT Total Creatine Kinase CK-MB (CK-2) Troponin T NT-Pro-B Natriuret Pep Total Protein Albumin Triglycerides HDL Cholesterol Folate Urine WBC (Auto) Urine Creatinine Urine Total Protein Vancomycin Trough 05/02/19 05/02/19 05/02/19 04:41 04:41 16:05 WBC RBC Hgb Hct MCV MCH MCHC RDW Plt Count Lymph % (Auto) [place] % (Auto) Eos % (Auto) Lymph # [place] # Eos # Seg Neutrophils % Seg Neuts % (Manual) Lymphocytes % (Manual) Monocytes % (Manual) Eosinophils % (Manual) Nucleated RBC % Seg Neutrophils # Seg Neutrophils # Man Lymphocytes # (Manual) Monocytes # (Manual) Eosinophils # (Manual) PT INR APTT Fibrinogen POC ABG pH ABG pH POC ABG pCO2 POC ABG pO2 ABG pO2 66.6 L ABG HCO3 31.9 H ABG O2 Saturation 92.5 L ABG Base Excess 5.8 H ABG Hemoglobin 13.3 L Oxyhemoglobin 90.6 L Sodium Potassium Chloride 97.2 L Carbon Dioxide BUN 61 H Creatinine 1.8 H Glucose POC Glucose Uric Acid Calcium Phosphorus Magnesium Iron TIBC AST ALT Total Creatine Kinase CK-MB (CK-2) 5.2 H Troponin T 0.067 H D NT-Pro-B Natriuret Pep Total Protein Albumin Triglycerides HDL Cholesterol Folate Urine WBC (Auto) Urine Creatinine Urine Total Protein Vancomycin Trough 05/02/19 05/03/19 05/03/19 20:39 04:35 05:05 WBC 11.8 H RBC Hgb Hct MCV MCH 27 L MCHC 31 L RDW 17.2 H Plt Count Lymph % (Auto) [place] % (Auto) Eos % (Auto) Lymph # [place] # Eos # Seg Neutrophils % Seg Neuts % (Manual) Lymphocytes % (Manual) Monocytes % (Manual) Eosinophils % (Manual) Nucleated RBC % Seg Neutrophils # Seg Neutrophils # Man Lymphocytes # (Manual) Monocytes # (Manual) Eosinophils # (Manual) PT INR APTT Fibrinogen POC ABG pH ABG pH POC ABG pCO2 53.6 H 54.0 H POC ABG pO2 55 L 63 L ABG pO2 ABG HCO3 ABG O2 Saturation ABG Base Excess ABG Hemoglobin Oxyhemoglobin Sodium Potassium Chloride Carbon Dioxide BUN Creatinine Glucose POC Glucose Uric Acid Calcium Phosphorus Magnesium Iron TIBC AST ALT Total Creatine Kinase CK-MB (CK-2) Troponin T NT-Pro-B Natriuret Pep Total Protein Albumin Triglycerides HDL Cholesterol Folate Urine WBC (Auto) Urine Creatinine Urine Total Protein Vancomycin Trough 05/03/19 05/03/1919 05:05 10:55 16:48 WBC RBC Hgb Hct MCV MCH MCHC RDW Plt Count Lymph % (Auto) [place] % (Auto) Eos % (Auto) Lymph # [place] # Eos # Seg Neutrophils % Seg Neuts % (Manual) Lymphocytes % (Manual) Monocytes % (Manual) Eosinophils % (Manual) Nucleated RBC % Seg Neutrophils # Seg Neutrophils # Man Lymphocytes # (Manual) Monocytes # (Manual) Eosinophils # (Manual) PT INR APTT Fibrinogen POC ABG pH 7.604 H ABG pH POC ABG pCO2 POC ABG pO2 58 L ABG pO2 ABG HCO3 ABG O2 Saturation ABG Base Excess ABG Hemoglobin Oxyhemoglobin Sodium Potassium Chloride Carbon Dioxide BUN 52 H Creatinine 1.9 H Glucose 103 H POC Glucose Uric Acid Calcium Phosphorus Magnesium Iron TIBC AST ALT Total Creatine Kinase CK-MB (CK-2) Troponin T NT-Pro-B Natriuret Pep Total Protein Albumin Triglycerides HDL Cholesterol Folate Urine WBC (Auto) 33.0 H Urine Creatinine Urine Total Protein Vancomycin Trough 05/04/19 05/04/19 05/04/19 04:49 06:50 06:50 WBC 16.0 H RBC Hgb Hct MCV MCH 27 L MCHC 31 L RDW 17.8 H Plt Count Lymph % (Auto) [place] % (Auto) Eos % (Auto) Lymph # [place] # Eos # Seg Neutrophils % Seg Neuts % (Manual) Lymphocytes % (Manual) Monocytes % (Manual) Eosinophils % (Manual) Nucleated RBC % Seg Neutrophils # Seg Neutrophils # Man Lymphocytes # (Manual) Monocytes # (Manual) Eosinophils # (Manual) PT INR APTT Fibrinogen POC ABG pH 7.273 L ABG pH POC ABG pCO2 POC ABG pO2 ABG pO2 ABG HCO3 ABG O2 Saturation ABG Base Excess ABG Hemoglobin Oxyhemoglobin Sodium 148 H Potassium 5.5 H Chloride Carbon Dioxide BUN 53 H Creatinine 3.3 H D Glucose 106 H POC Glucose Uric Acid Calcium 8.3 L Phosphorus Magnesium Iron TIBC AST ALT Total Creatine Kinase CK-MB (CK-2) Troponin T NT-Pro-B Natriuret Pep Total Protein Albumin Triglycerides HDL Cholesterol Folate Urine WBC (Auto) Urine Creatinine Urine Total Protein Vancomycin Trough 05/05/19 05/05/19 05/05/19 00:05 04:30 05:00 WBC RBC Hgb Hct MCV MCH MCHC RDW Plt Count Lymph % (Auto) [place] % (Auto) Eos % (Auto) Lymph # [place] # Eos # Seg Neutrophils % Seg Neuts % (Manual) Lymphocytes % (Manual) Monocytes % (Manual) Eosinophils % (Manual) Nucleated RBC % Seg Neutrophils # Seg Neutrophils # Man Lymphocytes # (Manual) Monocytes # (Manual) Eosinophils # (Manual) PT INR APTT Fibrinogen POC ABG pH 7.225 L ABG pH POC ABG pCO2 > 70 H POC ABG pO2 ABG pO2 ABG HCO3 ABG O2 Saturation ABG Base Excess ABG Hemoglobin Oxyhemoglobin Sodium 151 H Potassium 5.1 H Chloride Carbon Dioxide BUN 64 H Creatinine 3.5 H Glucose 117 H POC Glucose 141 H Uric Acid Calcium 7.5 L Phosphorus Magnesium Iron TIBC AST 93 H ALT 65 H Total Creatine Kinase CK-MB (CK-2) Troponin T NT-Pro-B Natriuret Pep Total Protein Albumin 2.9 L Triglycerides HDL Cholesterol Folate Urine WBC (Auto) Urine Creatinine Urine Total Protein Vancomycin Trough 05/05/19 05/05/19 05/05/19 05:00 12:02 17:46 WBC 12.0 H RBC Hgb 11.3 L Hct MCV MCH 27 L MCHC 30 L RDW 18.4 H Plt Count Lymph % (Auto) 7.9 L [place] % (Auto) 10.2 H Eos % (Auto) Lymph # 1.0 L [place] # 1.2 H Eos # Seg Neutrophils % 80.8 H Seg Neuts % (Manual) Lymphocytes % (Manual) Monocytes % (Manual) Eosinophils % (Manual) Nucleated RBC % Seg Neutrophils # 9.7 H Seg Neutrophils # Man Lymphocytes # (Manual) Monocytes # (Manual) Eosinophils # (Manual) PT INR APTT Fibrinogen POC ABG pH ABG pH POC ABG pCO2 POC ABG pO2 ABG pO2 ABG HCO3 ABG O2 Saturation ABG Base Excess ABG Hemoglobin Oxyhemoglobin Sodium Potassium Chloride Carbon Dioxide BUN Creatinine Glucose POC Glucose 125 H 112 H Uric Acid Calcium Phosphorus Magnesium Iron TIBC AST ALT Total Creatine Kinase CK-MB (CK-2) Troponin T NT-Pro-B Natriuret Pep Total Protein Albumin Triglycerides HDL Cholesterol Folate Urine WBC (Auto) Urine Creatinine Urine Total Protein Vancomycin Trough 05/05/19 05/06/19 05/06/19 23:42 03:58 04:45 WBC 11.4 H RBC Hgb 10.7 L Hct 34.2 L MCV MCH 27 L MCHC 31 L RDW 16.9 H Plt Count Lymph % (Auto) [place] % (Auto) Eos % (Auto) Lymph # [place] # Eos # Seg Neutrophils % Seg Neuts % (Manual) Lymphocytes % (Manual) Monocytes % (Manual) Eosinophils % (Manual) Nucleated RBC % Seg Neutrophils # Seg Neutrophils # Man Lymphocytes # (Manual) Monocytes # (Manual) Eosinophils # (Manual) PT INR APTT Fibrinogen POC ABG pH ABG pH POC ABG pCO2 62.4 H POC ABG pO2 111 H ABG pO2 ABG HCO3 ABG O2 Saturation ABG Base Excess ABG Hemoglobin Oxyhemoglobin Sodium Potassium Chloride Carbon Dioxide BUN Creatinine Glucose POC Glucose 128 H Uric Acid Calcium Phosphorus Magnesium Iron TIBC AST ALT Total Creatine Kinase CK-MB (CK-2) Troponin T NT-Pro-B Natriuret Pep Total Protein Albumin Triglycerides HDL Cholesterol Folate Urine WBC (Auto) Urine Creatinine Urine Total Protein Vancomycin Trough 05/06/19 05/06/19 05/06/19 04:45 05:33 12:30 WBC RBC Hgb Hct MCV MCH MCHC RDW Plt Count Lymph % (Auto) [place] % (Auto) Eos % (Auto) Lymph # [place] # Eos # Seg Neutrophils % Seg Neuts % (Manual) Lymphocytes % (Manual) Monocytes % (Manual) Eosinophils % (Manual) Nucleated RBC % Seg Neutrophils # Seg Neutrophils # Man Lymphocytes # (Manual) Monocytes # (Manual) Eosinophils # (Manual) PT INR APTT Fibrinogen POC ABG pH ABG pH POC ABG pCO2 POC ABG pO2 ABG pO2 ABG HCO3 ABG O2 Saturation ABG Base Excess ABG Hemoglobin Oxyhemoglobin Sodium 149 H Potassium Chloride Carbon Dioxide 31 H BUN 67 H Creatinine 3.2 H Glucose 125 H POC Glucose 117 H 116 H Uric Acid Calcium 7.5 L Phosphorus Magnesium Iron TIBC AST ALT Total Creatine Kinase CK-MB (CK-2) Troponin T NT-Pro-B Natriuret Pep Total Protein Albumin Triglycerides HDL Cholesterol Folate Urine WBC (Auto) Urine Creatinine Urine Total Protein Vancomycin Trough 05/06/19 05/06/19 05/07/19 18:34 23:16 05:22 WBC RBC Hgb Hct MCV MCH MCHC RDW Plt Count Lymph % (Auto) [place] % (Auto) Eos % (Auto) Lymph # [place] # Eos # Seg Neutrophils % Seg Neuts % (Manual) Lymphocytes % (Manual) Monocytes % (Manual) Eosinophils % (Manual) Nucleated RBC % Seg Neutrophils # Seg Neutrophils # Man Lymphocytes # (Manual) Monocytes # (Manual) Eosinophils # (Manual) PT INR APTT Fibrinogen POC ABG pH ABG pH POC ABG pCO2 POC ABG pO2 ABG pO2 ABG HCO3 ABG O2 Saturation ABG Base Excess ABG Hemoglobin Oxyhemoglobin Sodium Potassium Chloride Carbon Dioxide BUN Creatinine Glucose POC Glucose 128 H 143 H 166 H Uric Acid Calcium Phosphorus Magnesium Iron TIBC AST ALT Total Creatine Kinase CK-MB (CK-2) Troponin T NT-Pro-B Natriuret Pep Total Protein Albumin Triglycerides HDL Cholesterol Folate Urine WBC (Auto) Urine Creatinine Urine Total Protein Vancomycin Trough 05/07/19 05/07/19 05/07/19 06:33 07:03 09:35 WBC RBC Hgb Hct MCV MCH MCHC RDW Plt Count Lymph % (Auto) [place] % (Auto) Eos % (Auto) Lymph # [place] # Eos # Seg Neutrophils % Seg Neuts % (Manual) Lymphocytes % (Manual) Monocytes % (Manual) Eosinophils % (Manual) Nucleated RBC % Seg Neutrophils # Seg Neutrophils # Man Lymphocytes # (Manual) Monocytes # (Manual) Eosinophils # (Manual) PT INR APTT Fibrinogen POC ABG pH 7.263 L 7.288 L ABG pH POC ABG pCO2 POC ABG pO2 51 L 56 L ABG pO2 ABG HCO3 ABG O2 Saturation ABG Base Excess ABG Hemoglobin Oxyhemoglobin Sodium Potassium Chloride Carbon Dioxide BUN 76 H Creatinine 3.2 H Glucose 147 H POC Glucose Uric Acid Calcium 7.9 L Phosphorus Magnesium Iron TIBC AST ALT Total Creatine Kinase CK-MB (CK-2) Troponin T NT-Pro-B Natriuret Pep Total Protein Albumin Triglycerides HDL Cholesterol Folate Urine WBC (Auto) Urine Creatinine Urine Total Protein Vancomycin Trough 05/07/19 05/07/19 05/07/19 09:35 12:17 13:45 WBC 13.4 H RBC Hgb 11.6 L Hct MCV MCH 27 L MCHC 31 L RDW 17.5 H Plt Count Lymph % (Auto) [place] % (Auto) Eos % (Auto) Lymph # [place] # Eos # Seg Neutrophils % Seg Neuts % (Manual) Lymphocytes % (Manual) Monocytes % (Manual) Eosinophils % (Manual) Nucleated RBC % Seg Neutrophils # Seg Neutrophils # Man Lymphocytes # (Manual) Monocytes # (Manual) Eosinophils # (Manual) PT INR APTT Fibrinogen POC ABG pH ABG pH POC ABG pCO2 POC ABG pO2 ABG pO2 ABG HCO3 ABG O2 Saturation ABG Base Excess ABG Hemoglobin Oxyhemoglobin Sodium Potassium Chloride Carbon Dioxide BUN Creatinine Glucose POC Glucose 130 H Uric Acid 18.0 H Calcium Phosphorus Magnesium Iron TIBC AST ALT Total Creatine Kinase CK-MB (CK-2) Troponin T NT-Pro-B Natriuret Pep Total Protein Albumin Triglycerides HDL Cholesterol Folate Urine WBC (Auto) Urine Creatinine Urine Total Protein Vancomycin Trough 05/07/19 05/07/19 05/08/19 17:39 22:40 05:06 WBC RBC Hgb Hct MCV MCH MCHC RDW Plt Count Lymph % (Auto) [place] % (Auto) Eos % (Auto) Lymph # [place] # Eos # Seg Neutrophils % Seg Neuts % (Manual) Lymphocytes % (Manual) Monocytes % (Manual) Eosinophils % (Manual) Nucleated RBC % Seg Neutrophils # Seg Neutrophils # Man Lymphocytes # (Manual) Monocytes # (Manual) Eosinophils # (Manual) PT INR APTT Fibrinogen POC ABG pH ABG pH POC ABG pCO2 POC ABG pO2 ABG pO2 ABG HCO3 ABG O2 Saturation ABG Base Excess ABG Hemoglobin Oxyhemoglobin Sodium Potassium Chloride Carbon Dioxide BUN Creatinine Glucose POC Glucose 116 H 148 H Uric Acid Calcium Phosphorus Magnesium Iron TIBC AST ALT Total Creatine Kinase CK-MB (CK-2) Troponin T NT-Pro-B Natriuret Pep Total Protein Albumin Triglycerides HDL Cholesterol Folate Urine WBC (Auto) Urine Creatinine 292.8 H Urine Total Protein 269 H Vancomycin Trough 05/08/19 05/08/19 05/08/19 05:32 11:28 13:48 WBC RBC Hgb Hct MCV MCH MCHC RDW Plt Count Lymph % (Auto) [place] % (Auto) Eos % (Auto) Lymph # [place] # Eos # Seg Neutrophils % Seg Neuts % (Manual) Lymphocytes % (Manual) Monocytes % (Manual) Eosinophils % (Manual) Nucleated RBC % Seg Neutrophils # Seg Neutrophils # Man Lymphocytes # (Manual) Monocytes # (Manual) Eosinophils # (Manual) PT INR APTT Fibrinogen POC ABG pH ABG pH POC ABG pCO2 45.4 H POC ABG pO2 64 L ABG pO2 ABG HCO3 ABG O2 Saturation ABG Base Excess ABG Hemoglobin Oxyhemoglobin Sodium Potassium Chloride Carbon Dioxide BUN 73 H Creatinine 2.7 H Glucose 127 H POC Glucose 107 H Uric Acid Calcium 7.6 L Phosphorus Magnesium Iron TIBC AST ALT Total Creatine Kinase CK-MB (CK-2) Troponin T NT-Pro-B Natriuret Pep Total Protein Albumin Triglycerides HDL Cholesterol Folate Urine WBC (Auto) Urine Creatinine Urine Total Protein Vancomycin Trough 05/08/19 05/09/19 05/09/19 17:48 04:50 04:53 WBC RBC 3.07 L Hgb 8.5 L D Hct 29.3 L D MCV 96 H MCH MCHC 29 L RDW 18.1 H Plt Count Lymph % (Auto) [place] % (Auto) Eos % (Auto) Lymph # [place] # Eos # Seg Neutrophils % Seg Neuts % (Manual) Lymphocytes % (Manual) Monocytes % (Manual) Eosinophils % (Manual) Nucleated RBC % Seg Neutrophils # Seg Neutrophils # Man Lymphocytes # (Manual) Monocytes # (Manual) Eosinophils # (Manual) PT INR APTT Fibrinogen POC ABG pH 7.316 L ABG pH POC ABG pCO2 66.0 H POC ABG pO2 69 L ABG pO2 ABG HCO3 ABG O2 Saturation ABG Base Excess ABG Hemoglobin Oxyhemoglobin Sodium Potassium Chloride Carbon Dioxide BUN Creatinine Glucose POC Glucose 155 H Uric Acid Calcium Phosphorus Magnesium Iron TIBC AST ALT Total Creatine Kinase CK-MB (CK-2) Troponin T NT-Pro-B Natriuret Pep Total Protein Albumin Triglycerides HDL Cholesterol Folate Urine WBC (Auto) Urine Creatinine Urine Total Protein Vancomycin Trough 05/09/19 05/09/19 05/09/19 05:46 07:24 12:10 WBC RBC Hgb Hct MCV MCH MCHC RDW Plt Count Lymph % (Auto) [place] % (Auto) Eos % (Auto) Lymph # [place] # Eos # Seg Neutrophils % Seg Neuts % (Manual) Lymphocytes % (Manual) Monocytes % (Manual) Eosinophils % (Manual) Nucleated RBC % Seg Neutrophils # Seg Neutrophils # Man Lymphocytes # (Manual) Monocytes # (Manual) Eosinophils # (Manual) PT INR APTT Fibrinogen POC ABG pH ABG pH POC ABG pCO2 POC ABG pO2 ABG pO2 ABG HCO3 ABG O2 Saturation ABG Base Excess ABG Hemoglobin Oxyhemoglobin Sodium Potassium Chloride Carbon Dioxide BUN 73 H Creatinine 2.4 H Glucose 153 H POC Glucose 123 H 148 H Uric Acid Calcium 8.2 L Phosphorus Magnesium Iron TIBC AST 45 H ALT Total Creatine Kinase CK-MB (CK-2) Troponin T NT-Pro-B Natriuret Pep Total Protein 6.0 L Albumin 1.9 L Triglycerides HDL Cholesterol Folate Urine WBC (Auto) Urine Creatinine Urine Total Protein Vancomycin Trough 05/09/19 05/09/19 05/10/19 18:23 23:26 04:52 WBC RBC Hgb Hct MCV MCH MCHC RDW Plt Count Lymph % (Auto) [place] % (Auto) Eos % (Auto) Lymph # [place] # Eos # Seg Neutrophils % Seg Neuts % (Manual) Lymphocytes % (Manual) Monocytes % (Manual) Eosinophils % (Manual) Nucleated RBC % Seg Neutrophils # Seg Neutrophils # Man Lymphocytes # (Manual) Monocytes # (Manual) Eosinophils # (Manual) PT INR APTT Fibrinogen POC ABG pH 7.305 L ABG pH POC ABG pCO2 62.6 H POC ABG pO2 ABG pO2 ABG HCO3 ABG O2 Saturation ABG Base Excess ABG Hemoglobin Oxyhemoglobin Sodium Potassium Chloride Carbon Dioxide BUN Creatinine Glucose POC Glucose 147 H 121 H Uric Acid Calcium Phosphorus Magnesium Iron TIBC AST ALT Total Creatine Kinase CK-MB (CK-2) Troponin T NT-Pro-B Natriuret Pep Total Protein Albumin Triglycerides HDL Cholesterol Folate Urine WBC (Auto) Urine Creatinine Urine Total Protein Vancomycin Trough 05/10/19 05/10/19 05/10/19 05:00 05:00 05:50 WBC RBC Hgb 10.3 L Hct 33.7 L MCV MCH 27 L MCHC 31 L RDW 17.0 H Plt Count Lymph % (Auto) [place] % (Auto) Eos % (Auto) Lymph # [place] # Eos # Seg Neutrophils % Seg Neuts % (Manual) Lymphocytes % (Manual) Monocytes % (Manual) Eosinophils % (Manual) Nucleated RBC % Seg Neutrophils # Seg Neutrophils # Man Lymphocytes # (Manual) Monocytes # (Manual) Eosinophils # (Manual) PT INR APTT Fibrinogen POC ABG pH ABG pH POC ABG pCO2 POC ABG pO2 ABG pO2 ABG HCO3 ABG O2 Saturation ABG Base Excess ABG Hemoglobin Oxyhemoglobin Sodium 147 H Potassium Chloride Carbon Dioxide BUN 70 H Creatinine 2.6 H Glucose 155 H POC Glucose 158 H Uric Acid Calcium 8.2 L Phosphorus Magnesium Iron TIBC AST ALT Total Creatine Kinase CK-MB (CK-2) Troponin T NT-Pro-B Natriuret Pep Total Protein 6.1 L Albumin 2.5 L Triglycerides HDL Cholesterol Folate Urine WBC (Auto) Urine Creatinine Urine Total Protein Vancomycin Trough 05/10/19 05/11/19 05/11/19 13:14 07:26 11:40 WBC RBC Hgb Hct MCV MCH MCHC RDW Plt Count Lymph % (Auto) [place] % (Auto) Eos % (Auto) Lymph # [place] # Eos # Seg Neutrophils % Seg Neuts % (Manual) Lymphocytes % (Manual) Monocytes % (Manual) Eosinophils % (Manual) Nucleated RBC % Seg Neutrophils # Seg Neutrophils # Man Lymphocytes # (Manual) Monocytes # (Manual) Eosinophils # (Manual) PT INR APTT Fibrinogen POC ABG pH ABG pH POC ABG pCO2 48.0 H POC ABG pO2 58 L ABG pO2 ABG HCO3 ABG O2 Saturation ABG Base Excess ABG Hemoglobin Oxyhemoglobin Sodium 147 H Potassium Chloride 107.2 H Carbon Dioxide BUN 67 H Creatinine 2.6 H Glucose 121 H POC Glucose 159 H Uric Acid Calcium Phosphorus Magnesium Iron TIBC AST ALT Total Creatine Kinase CK-MB (CK-2) Troponin T NT-Pro-B Natriuret Pep Total Protein Albumin Triglycerides HDL Cholesterol Folate Urine WBC (Auto) Urine Creatinine Urine Total Protein Vancomycin Trough 05/11/19 05/11/19 05/12/19 18:13 23:46 04:40 WBC RBC Hgb Hct MCV MCH MCHC RDW Plt Count Lymph % (Auto) [place] % (Auto) Eos % (Auto) Lymph # [place] # Eos # Seg Neutrophils % Seg Neuts % (Manual) Lymphocytes % (Manual) Monocytes % (Manual) Eosinophils % (Manual) Nucleated RBC % Seg Neutrophils # Seg Neutrophils # Man Lymphocytes # (Manual) Monocytes # (Manual) Eosinophils # (Manual) PT INR APTT Fibrinogen POC ABG pH ABG pH 7.264 L POC ABG pCO2 POC ABG pO2 ABG pO2 66.8 L ABG HCO3 31.0 H ABG O2 Saturation 92.0 L ABG Base Excess ABG Hemoglobin 10.3 L Oxyhemoglobin 90.1 L Sodium Potassium Chloride Carbon Dioxide BUN Creatinine Glucose POC Glucose 120 H 121 H Uric Acid Calcium Phosphorus Magnesium Iron TIBC AST ALT Total Creatine Kinase CK-MB (CK-2) Troponin T NT-Pro-B Natriuret Pep Total Protein Albumin Triglycerides HDL Cholesterol Folate Urine WBC (Auto) Urine Creatinine Urine Total Protein Vancomycin Trough 05/12/19 05/12/19 05/12/19 04:45 04:45 11:14 WBC RBC Hgb 10.2 L Hct 32.4 L MCV MCH MCHC 31 L RDW 17.2 H Plt Count Lymph % (Auto) [place] % (Auto) Eos % (Auto) Lymph # [place] # Eos # Seg Neutrophils % Seg Neuts % (Manual) Lymphocytes % (Manual) Monocytes % (Manual) Eosinophils % (Manual) Nucleated RBC % Seg Neutrophils # Seg Neutrophils # Man Lymphocytes # (Manual) Monocytes # (Manual) Eosinophils # (Manual) PT INR APTT Fibrinogen POC ABG pH 7.284 L ABG pH POC ABG pCO2 67.8 H POC ABG pO2 ABG pO2 ABG HCO3 ABG O2 Saturation ABG Base Excess ABG Hemoglobin Oxyhemoglobin Sodium Potassium Chloride Carbon Dioxide BUN 63 H Creatinine 2.4 H Glucose 110 H POC Glucose Uric Acid Calcium Phosphorus Magnesium Iron TIBC AST ALT Total Creatine Kinase CK-MB (CK-2) Troponin T NT-Pro-B Natriuret Pep Total Protein Albumin Triglycerides HDL Cholesterol Folate Urine WBC (Auto) Urine Creatinine Urine Total Protein Vancomycin Trough 05/12/19 05/12/19 05/13/19 11:44 23:11 04:30 WBC RBC Hgb Hct MCV MCH MCHC RDW Plt Count Lymph % (Auto) [place] % (Auto) Eos % (Auto) Lymph # [place] # Eos # Seg Neutrophils % Seg Neuts % (Manual) Lymphocytes % (Manual) Monocytes % (Manual) Eosinophils % (Manual) Nucleated RBC % Seg Neutrophils # Seg Neutrophils # Man Lymphocytes # (Manual) Monocytes # (Manual) Eosinophils # (Manual) PT INR APTT Fibrinogen POC ABG pH ABG pH 7.288 L POC ABG pCO2 POC ABG pO2 ABG pO2 109.7 H ABG HCO3 30.9 H ABG O2 Saturation ABG Base Excess 3.2 H ABG Hemoglobin 9.6 L Oxyhemoglobin Sodium Potassium Chloride Carbon Dioxide BUN Creatinine Glucose POC Glucose 126 H 147 H Uric Acid Calcium Phosphorus Magnesium Iron TIBC AST ALT Total Creatine Kinase CK-MB (CK-2) Troponin T NT-Pro-B Natriuret Pep Total Protein Albumin Triglycerides HDL Cholesterol Folate Urine WBC (Auto) Urine Creatinine Urine Total Protein Vancomycin Trough 05/13/19 05/13/19 05/14/19 06:27 11:58 04:00 WBC RBC 3.16 L Hgb 9.3 L Hct 27.9 L MCV MCH MCHC RDW 17.1 H Plt Count Lymph % (Auto) [place] % (Auto) Eos % (Auto) Lymph # [place] # Eos # Seg Neutrophils % Seg Neuts % (Manual) Lymphocytes % (Manual) Monocytes % (Manual) Eosinophils % (Manual) Nucleated RBC % Seg Neutrophils # Seg Neutrophils # Man Lymphocytes # (Manual) Monocytes # (Manual) Eosinophils # (Manual) PT INR APTT Fibrinogen POC ABG pH ABG pH POC ABG pCO2 POC ABG pO2 ABG pO2 ABG HCO3 ABG O2 Saturation ABG Base Excess ABG Hemoglobin Oxyhemoglobin Sodium Potassium Chloride Carbon Dioxide BUN Creatinine Glucose POC Glucose 113 H 130 H Uric Acid Calcium Phosphorus Magnesium Iron TIBC AST ALT Total Creatine Kinase CK-MB (CK-2) Troponin T NT-Pro-B Natriuret Pep Total Protein Albumin Triglycerides HDL Cholesterol Folate Urine WBC (Auto) Urine Creatinine Urine Total Protein Vancomycin Trough 05/14/19 05/14/19 05/14/19 04:00 04:34 05:32 WBC RBC Hgb Hct MCV MCH MCHC RDW Plt Count Lymph % (Auto) [place] % (Auto) Eos % (Auto) Lymph # [place] # Eos # Seg Neutrophils % Seg Neuts % (Manual) Lymphocytes % (Manual) Monocytes % (Manual) Eosinophils % (Manual) Nucleated RBC % Seg Neutrophils # Seg Neutrophils # Man Lymphocytes # (Manual) Monocytes # (Manual) Eosinophils # (Manual) PT INR APTT Fibrinogen POC ABG pH 7.328 L ABG pH POC ABG pCO2 61.7 H POC ABG pO2 ABG pO2 ABG HCO3 ABG O2 Saturation ABG Base Excess ABG Hemoglobin Oxyhemoglobin Sodium 135 L D Potassium Chloride Carbon Dioxide BUN 57 H Creatinine 2.2 H Glucose 115 H POC Glucose 115 H Uric Acid Calcium 8.1 L Phosphorus Magnesium Iron TIBC AST ALT Total Creatine Kinase CK-MB (CK-2) Troponin T NT-Pro-B Natriuret Pep Total Protein Albumin Triglycerides HDL Cholesterol Folate Urine WBC (Auto) Urine Creatinine Urine Total Protein Vancomycin Trough 05/14/19 05/15/19 05/15/19 12:11 05:10 05:24 WBC RBC Hgb Hct MCV MCH MCHC RDW Plt Count Lymph % (Auto) [place] % (Auto) Eos % (Auto) Lymph # [place] # Eos # Seg Neutrophils % Seg Neuts % (Manual) Lymphocytes % (Manual) Monocytes % (Manual) Eosinophils % (Manual) Nucleated RBC % Seg Neutrophils # Seg Neutrophils # Man Lymphocytes # (Manual) Monocytes # (Manual) Eosinophils # (Manual) PT INR APTT Fibrinogen POC ABG pH ABG pH 7.342 L POC ABG pCO2 POC ABG pO2 ABG pO2 79.1 L ABG HCO3 28.2 H ABG O2 Saturation ABG Base Excess ABG Hemoglobin 7.0 L Oxyhemoglobin 94.4 L Sodium Potassium Chloride Carbon Dioxide BUN Creatinine Glucose POC Glucose 110 H 116 H Uric Acid Calcium Phosphorus Magnesium Iron TIBC AST ALT Total Creatine Kinase CK-MB (CK-2) Troponin T NT-Pro-B Natriuret Pep Total Protein Albumin Triglycerides HDL Cholesterol Folate Urine WBC (Auto) Urine Creatinine Urine Total Protein Vancomycin Trough 05/15/19 05/15/19 05/16/19 09:00 18:12 04:50 WBC RBC Hgb Hct MCV MCH MCHC RDW Plt Count Lymph % (Auto) [place] % (Auto) Eos % (Auto) Lymph # [place] # Eos # Seg Neutrophils % Seg Neuts % (Manual) Lymphocytes % (Manual) Monocytes % (Manual) Eosinophils % (Manual) Nucleated RBC % Seg Neutrophils # Seg Neutrophils # Man Lymphocytes # (Manual) Monocytes # (Manual) Eosinophils # (Manual) PT INR APTT Fibrinogen POC ABG pH ABG pH 7.250 L POC ABG pCO2 POC ABG pO2 ABG pO2 76.4 L ABG HCO3 ABG O2 Saturation 94.6 L ABG Base Excess -3.1 L ABG Hemoglobin 9.7 L Oxyhemoglobin 92.4 L Sodium Potassium Chloride Carbon Dioxide BUN Creatinine Glucose POC Glucose 110 H Uric Acid Calcium Phosphorus Magnesium Iron TIBC AST ALT Total Creatine Kinase CK-MB (CK-2) Troponin T NT-Pro-B Natriuret Pep Total Protein Albumin Triglycerides HDL Cholesterol Folate Urine WBC (Auto) Urine Creatinine Urine Total Protein Vancomycin Trough 20.5 H 05/16/19 05/16/19 05/17/19 05:50 05:50 04:20 WBC RBC 3.36 L 3.44 L Hgb 9.4 L 9.3 L Hct 29.1 L 29.7 L MCV MCH 27 L MCHC 31 L RDW 17.6 H 17.6 H Plt Count Lymph % (Auto) [place] % (Auto) Eos % (Auto) Lymph # [place] # Eos # Seg Neutrophils % Seg Neuts % (Manual) 77.0 H Lymphocytes % (Manual) 5.0 L Monocytes % (Manual) Eosinophils % (Manual) 10.0 H Nucleated RBC % Seg Neutrophils # Seg Neutrophils # Man Lymphocytes # (Manual) 0.5 L Monocytes # (Manual) Eosinophils # (Manual) 0.9 H PT INR APTT Fibrinogen POC ABG pH ABG pH POC ABG pCO2 POC ABG pO2 ABG pO2 ABG HCO3 ABG O2 Saturation ABG Base Excess ABG Hemoglobin Oxyhemoglobin Sodium Potassium Chloride Carbon Dioxide BUN 83 H Creatinine 4.4 H D Glucose 118 H POC Glucose Uric Acid Calcium Phosphorus Magnesium Iron TIBC AST ALT Total Creatine Kinase CK-MB (CK-2) Troponin T NT-Pro-B Natriuret Pep Total Protein Albumin Triglycerides HDL Cholesterol Folate Urine WBC (Auto) Urine Creatinine Urine Total Protein Vancomycin Trough 05/17/19 05/17/19 05/18/19 04:30 Unknown 01:50 WBC RBC 3.49 L Hgb 9.4 L Hct 30.0 L MCV MCH 27 L MCHC 31 L RDW 17.8 H Plt Count Lymph % (Auto) 7.9 L [place] % (Auto) 15.4 H Eos % (Auto) 6.3 H Lymph # 0.7 L [place] # 1.4 H Eos # 0.6 H Seg Neutrophils % 70.2 H Seg Neuts % (Manual) Lymphocytes % (Manual) Monocytes % (Manual) Eosinophils % (Manual) Nucleated RBC % Seg Neutrophils # Seg Neutrophils # Man Lymphocytes # (Manual) Monocytes # (Manual) Eosinophils # (Manual) PT INR APTT Fibrinogen POC ABG pH ABG pH 7.272 L POC ABG pCO2 POC ABG pO2 ABG pO2 75.7 L ABG HCO3 ABG O2 Saturation 93.8 L ABG Base Excess -3.0 L ABG Hemoglobin 7.8 L Oxyhemoglobin 91.6 L Sodium Potassium 5.2 H Chloride Carbon Dioxide BUN 96 H Creatinine 5.7 H Glucose 112 H POC Glucose Uric Acid Calcium Phosphorus Magnesium Iron TIBC AST ALT Total Creatine Kinase CK-MB (CK-2) Troponin T NT-Pro-B Natriuret Pep Total Protein Albumin Triglycerides 173 H HDL Cholesterol Folate Urine WBC (Auto) Urine Creatinine Urine Total Protein Vancomycin Trough 05/18/19 05/18/19 05/18/19 01:50 04:41 05:24 WBC RBC Hgb Hct MCV MCH MCHC RDW Plt Count Lymph % (Auto) [place] % (Auto) Eos % (Auto) Lymph # [place] # Eos # Seg Neutrophils % Seg Neuts % (Manual) Lymphocytes % (Manual) Monocytes % (Manual) Eosinophils % (Manual) Nucleated RBC % Seg Neutrophils # Seg Neutrophils # Man Lymphocytes # (Manual) Monocytes # (Manual) Eosinophils # (Manual) PT INR APTT Fibrinogen POC ABG pH 7.260 L ABG pH POC ABG pCO2 54.9 H POC ABG pO2 ABG pO2 ABG HCO3 ABG O2 Saturation ABG Base Excess ABG Hemoglobin Oxyhemoglobin Sodium Potassium 5.6 H Chloride Carbon Dioxide BUN 104 H Creatinine 6.6 H Glucose 107 H POC Glucose 106 H Uric Acid Calcium Phosphorus Magnesium Iron TIBC AST ALT Total Creatine Kinase CK-MB (CK-2) Troponin T NT-Pro-B Natriuret Pep Total Protein Albumin Triglycerides HDL Cholesterol Folate Urine WBC (Auto) Urine Creatinine Urine Total Protein Vancomycin Trough 05/18/19 05/18/19 05/19/19 11:34 23:26 04:06 WBC RBC 3.22 L Hgb 8.8 L Hct 27.3 L MCV MCH 27 L MCHC RDW 17.5 H Plt Count Lymph % (Auto) [place] % (Auto) Eos % (Auto) Lymph # [place] # Eos # Seg Neutrophils % Seg Neuts % (Manual) 74.0 H Lymphocytes % (Manual) 4.0 L Monocytes % (Manual) 11.0 H Eosinophils % (Manual) 7.0 H Nucleated RBC % 1.0 H Seg Neutrophils # Seg Neutrophils # Man Lymphocytes # (Manual) 0.3 L Monocytes # (Manual) 0.9 H Eosinophils # (Manual) 0.6 H PT INR APTT Fibrinogen POC ABG pH ABG pH POC ABG pCO2 POC ABG pO2 ABG pO2 ABG HCO3 ABG O2 Saturation ABG Base Excess ABG Hemoglobin Oxyhemoglobin Sodium Potassium Chloride Carbon Dioxide BUN Creatinine Glucose POC Glucose 152 H 112 H Uric Acid Calcium Phosphorus Magnesium Iron TIBC AST ALT Total Creatine Kinase CK-MB (CK-2) Troponin T NT-Pro-B Natriuret Pep Total Protein Albumin Triglycerides HDL Cholesterol Folate Urine WBC (Auto) Urine Creatinine Urine Total Protein Vancomycin Trough 05/19/19 05/19/19 05/20/19 04:06 06:00 04:00 WBC RBC 3.40 L Hgb 9.2 L Hct 28.6 L MCV MCH 27 L MCHC RDW 17.6 H Plt Count Lymph % (Auto) [place] % (Auto) Eos % (Auto) Lymph # [place] # Eos # Seg Neutrophils % Seg Neuts % (Manual) Lymphocytes % (Manual) 11.0 L Monocytes % (Manual) Eosinophils % (Manual) 14.0 H Nucleated RBC % Seg Neutrophils # Seg Neutrophils # Man Lymphocytes # (Manual) 1.1 L Monocytes # (Manual) Eosinophils # (Manual) 1.4 H PT INR APTT Fibrinogen POC ABG pH ABG pH 7.315 L POC ABG pCO2 POC ABG pO2 ABG pO2 ABG HCO3 ABG O2 Saturation ABG Base Excess ABG Hemoglobin 6.7 L Oxyhemoglobin 94.1 L Sodium Potassium 5.2 H Chloride Carbon Dioxide 21 L BUN 110 H Creatinine 7.2 H Glucose POC Glucose Uric Acid Calcium 8.3 L Phosphorus Magnesium Iron TIBC AST ALT Total Creatine Kinase CK-MB (CK-2) Troponin T NT-Pro-B Natriuret Pep Total Protein Albumin Triglycerides HDL Cholesterol Folate Urine WBC (Auto) Urine Creatinine Urine Total Protein Vancomycin Trough 05/20/19 05/20/19 05/20/19 04:00 05:48 12:00 WBC RBC Hgb Hct MCV MCH MCHC RDW Plt Count Lymph % (Auto) [place] % (Auto) Eos % (Auto) Lymph # [place] # Eos # Seg Neutrophils % Seg Neuts % (Manual) Lymphocytes % (Manual) Monocytes % (Manual) Eosinophils % (Manual) Nucleated RBC % Seg Neutrophils # Seg Neutrophils # Man Lymphocytes # (Manual) Monocytes # (Manual) Eosinophils # (Manual) PT INR APTT Fibrinogen POC ABG pH ABG pH 7.281 L POC ABG pCO2 POC ABG pO2 ABG pO2 78.7 L ABG HCO3 ABG O2 Saturation 94.5 L ABG Base Excess -3.0 L ABG Hemoglobin 9.9 L Oxyhemoglobin 92.5 L Sodium 136 L Potassium 5.7 H Chloride 96.3 L Carbon Dioxide BUN 125 H Creatinine 8.3 H Glucose 106 H POC Glucose Uric Acid Calcium Phosphorus Magnesium Iron TIBC AST ALT Total Creatine Kinase CK-MB (CK-2) Troponin T NT-Pro-B Natriuret Pep Total Protein Albumin Triglycerides HDL Cholesterol Folate Urine WBC (Auto) 26.0 H Urine Creatinine Urine Total Protein Vancomycin Trough 05/21/19 05/21/19 05/21/19 04:33 05:20 Unknown WBC RBC 3.38 L Hgb 9.1 L Hct 28.5 L MCV MCH 27 L MCHC RDW 17.4 H Plt Count Lymph % (Auto) [place] % (Auto) Eos % (Auto) Lymph # [place] # Eos # Seg Neutrophils % Seg Neuts % (Manual) 71.0 H Lymphocytes % (Manual) 1.0 L Monocytes % (Manual) 11.0 H Eosinophils % (Manual) 6.0 H Nucleated RBC % Seg Neutrophils # Seg Neutrophils # Man Lymphocytes # (Manual) 0.1 L Monocytes # (Manual) 1.0 H Eosinophils # (Manual) 0.6 H PT INR APTT Fibrinogen POC ABG pH 7.315 L ABG pH POC ABG pCO2 57.8 H POC ABG pO2 68 L ABG pO2 ABG HCO3 ABG O2 Saturation ABG Base Excess ABG Hemoglobin Oxyhemoglobin Sodium Potassium Chloride 96.3 L Carbon Dioxide BUN 102 H Creatinine 7.0 H Glucose 103 H POC Glucose Uric Acid Calcium Phosphorus Magnesium Iron TIBC AST ALT Total Creatine Kinase CK-MB (CK-2) Troponin T NT-Pro-B Natriuret Pep Total Protein Albumin Triglycerides HDL Cholesterol Folate Urine WBC (Auto) Urine Creatinine Urine Total Protein Vancomycin Trough 05/22/19 05/22/19 05/22/19 03:54 06:25 06:25 WBC RBC 3.22 L Hgb 8.6 L Hct 27.0 L MCV MCH 27 L MCHC RDW 17.5 H Plt Count Lymph % (Auto) [place] % (Auto) 16.2 H Eos % (Auto) 10.8 H Lymph # [place] # 1.3 H Eos # 0.9 H Seg Neutrophils % Seg Neuts % (Manual) Lymphocytes % (Manual) 10.0 L Monocytes % (Manual) 13.0 H Eosinophils % (Manual) 8.0 H Nucleated RBC % Seg Neutrophils # Seg Neutrophils # Man Lymphocytes # (Manual) 0.9 L Monocytes # (Manual) 1.1 H Eosinophils # (Manual) 0.7 H PT INR APTT Fibrinogen POC ABG pH 7.313 L ABG pH POC ABG pCO2 55.0 H POC ABG pO2 ABG pO2 ABG HCO3 ABG O2 Saturation ABG Base Excess ABG Hemoglobin Oxyhemoglobin Sodium 135 L Potassium Chloride 94.3 L Carbon Dioxide BUN 117 H Creatinine 7.8 H Glucose POC Glucose Uric Acid Calcium 8.2 L Phosphorus Magnesium Iron TIBC AST ALT Total Creatine Kinase CK-MB (CK-2) Troponin T NT-Pro-B Natriuret Pep Total Protein Albumin Triglycerides HDL Cholesterol Folate Urine WBC (Auto) Urine Creatinine Urine Total Protein Vancomycin Trough 05/23/19 05/24/19 05/24/19 05:21 05:00 05:00 WBC RBC 3.18 L Hgb 8.5 L Hct 26.7 L MCV MCH 27 L MCHC RDW 17.9 H Plt Count Lymph % (Auto) [place] % (Auto) Eos % (Auto) Lymph # [place] # Eos # Seg Neutrophils % Seg Neuts % (Manual) Lymphocytes % (Manual) Monocytes % (Manual) Eosinophils % (Manual) Nucleated RBC % Seg Neutrophils # Seg Neutrophils # Man Lymphocytes # (Manual) Monocytes # (Manual) Eosinophils # (Manual) PT INR APTT Fibrinogen POC ABG pH ABG pH POC ABG pCO2 49.7 H POC ABG pO2 73 L ABG pO2 ABG HCO3 ABG O2 Saturation ABG Base Excess ABG Hemoglobin Oxyhemoglobin Sodium Potassium Chloride 95.7 L Carbon Dioxide BUN 97 H Creatinine 6.5 H Glucose POC Glucose Uric Acid Calcium 8.0 L Phosphorus Magnesium Iron TIBC AST ALT Total Creatine Kinase CK-MB (CK-2) Troponin T NT-Pro-B Natriuret Pep Total Protein Albumin Triglycerides HDL Cholesterol Folate Urine WBC (Auto) Urine Creatinine Urine Total Protein Vancomycin Trough 05/24/19 05/25/19 05/25/19 06:17 04:22 15:45 WBC RBC 2.98 L Hgb 8.1 L Hct 24.9 L MCV MCH 27 L MCHC RDW 17.8 H Plt Count Lymph % (Auto) [place] % (Auto) Eos % (Auto) Lymph # [place] # Eos # Seg Neutrophils % Seg Neuts % (Manual) Lymphocytes % (Manual) Monocytes % (Manual) Eosinophils % (Manual) Nucleated RBC % Seg Neutrophils # Seg Neutrophils # Man Lymphocytes # (Manual) Monocytes # (Manual) Eosinophils # (Manual) PT INR APTT Fibrinogen POC ABG pH 7.330 L 7.313 L ABG pH POC ABG pCO2 52.5 H 51.1 H POC ABG pO2 77 L ABG pO2 ABG HCO3 ABG O2 Saturation ABG Base Excess ABG Hemoglobin Oxyhemoglobin Sodium Potassium Chloride Carbon Dioxide BUN Creatinine Glucose POC Glucose Uric Acid Calcium Phosphorus Magnesium Iron TIBC AST ALT Total Creatine Kinase CK-MB (CK-2) Troponin T NT-Pro-B Natriuret Pep Total Protein Albumin Triglycerides HDL Cholesterol Folate Urine WBC (Auto) Urine Creatinine Urine Total Protein Vancomycin Trough 05/25/19 05/26/19 05/26/19 15:45 04:13 05:00 WBC RBC 3.10 L Hgb 8.4 L Hct 26.0 L MCV MCH 27 L MCHC RDW 17.4 H Plt Count Lymph % (Auto) [place] % (Auto) Eos % (Auto) Lymph # [place] # Eos # Seg Neutrophils % Seg Neuts % (Manual) Lymphocytes % (Manual) Monocytes % (Manual) Eosinophils % (Manual) Nucleated RBC % Seg Neutrophils # Seg Neutrophils # Man Lymphocytes # (Manual) Monocytes # (Manual) Eosinophils # (Manual) PT INR APTT Fibrinogen POC ABG pH 7.295 L ABG pH POC ABG pCO2 56.5 H POC ABG pO2 63 L ABG pO2 ABG HCO3 ABG O2 Saturation ABG Base Excess ABG Hemoglobin Oxyhemoglobin Sodium 136 L Potassium Chloride 96.8 L Carbon Dioxide BUN 83 H Creatinine 5.9 H Glucose POC Glucose Uric Acid Calcium 7.6 L Phosphorus Magnesium Iron TIBC AST ALT Total Creatine Kinase CK-MB (CK-2) Troponin T NT-Pro-B Natriuret Pep Total Protein Albumin Triglycerides HDL Cholesterol Folate Urine WBC (Auto) Urine Creatinine Urine Total Protein Vancomycin Trough 05/26/19 05/27/19 05/28/19 05:00 04:48 04:47 WBC RBC Hgb Hct MCV MCH MCHC RDW Plt Count Lymph % (Auto) [place] % (Auto) Eos % (Auto) Lymph # [place] # Eos # Seg Neutrophils % Seg Neuts % (Manual) Lymphocytes % (Manual) Monocytes % (Manual) Eosinophils % (Manual) Nucleated RBC % Seg Neutrophils # Seg Neutrophils # Man Lymphocytes # (Manual) Monocytes # (Manual) Eosinophils # (Manual) PT INR APTT Fibrinogen POC ABG pH 7.323 L ABG pH 7.284 L POC ABG pCO2 56.2 H POC ABG pO2 ABG pO2 71.6 L ABG HCO3 ABG O2 Saturation 92.0 L ABG Base Excess ABG Hemoglobin 7.7 L Oxyhemoglobin 89.9 L Sodium 136 L Potassium Chloride 95.3 L Carbon Dioxide BUN 96 H Creatinine 6.5 H Glucose 108 H POC Glucose Uric Acid Calcium 7.6 L Phosphorus Magnesium Iron TIBC AST ALT Total Creatine Kinase CK-MB (CK-2) Troponin T NT-Pro-B Natriuret Pep Total Protein Albumin Triglycerides HDL Cholesterol Folate Urine WBC (Auto) Urine Creatinine Urine Total Protein Vancomycin Trough 05/28/19 05/29/19 05/29/19 12:30 12:47 23:44 WBC RBC Hgb Hct MCV MCH MCHC RDW Plt Count Lymph % (Auto) [place] % (Auto) Eos % (Auto) Lymph # [place] # Eos # Seg Neutrophils % Seg Neuts % (Manual) Lymphocytes % (Manual) Monocytes % (Manual) Eosinophils % (Manual) Nucleated RBC % Seg Neutrophils # Seg Neutrophils # Man Lymphocytes # (Manual) Monocytes # (Manual) Eosinophils # (Manual) PT INR APTT Fibrinogen POC ABG pH ABG pH POC ABG pCO2 POC ABG pO2 ABG pO2 ABG HCO3 ABG O2 Saturation ABG Base Excess ABG Hemoglobin Oxyhemoglobin Sodium 135 L Potassium Chloride 95.3 L Carbon Dioxide BUN 82 H Creatinine 6.0 H Glucose POC Glucose 136 H 159 H Uric Acid Calcium 7.5 L Phosphorus Magnesium Iron TIBC AST ALT Total Creatine Kinase CK-MB (CK-2) Troponin T NT-Pro-B Natriuret Pep Total Protein Albumin Triglycerides HDL Cholesterol Folate Urine WBC (Auto) Urine Creatinine Urine Total Protein Vancomycin Trough 05/30/19 05/30/19 05/30/19 04:30 05:38 12:00 WBC RBC 3.01 L Hgb 8.2 L Hct 25.3 L MCV MCH 27 L MCHC RDW 17.5 H Plt Count Lymph % (Auto) [place] % (Auto) Eos % (Auto) Lymph # [place] # Eos # Seg Neutrophils % Seg Neuts % (Manual) 80.0 H Lymphocytes % (Manual) 10.0 L Monocytes % (Manual) Eosinophils % (Manual) Nucleated RBC % Seg Neutrophils # Seg Neutrophils # Man 8.0 H Lymphocytes # (Manual) 1.0 L Monocytes # (Manual) Eosinophils # (Manual) PT INR APTT Fibrinogen POC ABG pH ABG pH POC ABG pCO2 POC ABG pO2 73 L ABG pO2 ABG HCO3 ABG O2 Saturation ABG Base Excess ABG Hemoglobin Oxyhemoglobin Sodium Potassium Chloride Carbon Dioxide BUN Creatinine Glucose POC Glucose 166 H Uric Acid Calcium Phosphorus Magnesium Iron TIBC AST ALT Total Creatine Kinase CK-MB (CK-2) Troponin T NT-Pro-B Natriuret Pep Total Protein Albumin Triglycerides HDL Cholesterol Folate Urine WBC (Auto) Urine Creatinine Urine Total Protein Vancomycin Trough 05/30/19 05/31/19 05/31/19 23:45 04:07 13:04 WBC 14.3 H RBC 2.88 L Hgb 7.7 L Hct 23.9 L MCV 83 L MCH 27 L MCHC RDW 17.8 H Plt Count Lymph % (Auto) [place] % (Auto) Eos % (Auto) Lymph # [place] # Eos # Seg Neutrophils % Seg Neuts % (Manual) 83.0 H Lymphocytes % (Manual) 11.0 L Monocytes % (Manual) Eosinophils % (Manual) Nucleated RBC % Seg Neutrophils # Seg Neutrophils # Man 11.9 H Lymphocytes # (Manual) Monocytes # (Manual) 0.9 H Eosinophils # (Manual) PT INR APTT Fibrinogen POC ABG pH ABG pH POC ABG pCO2 47.4 H POC ABG pO2 ABG pO2 ABG HCO3 ABG O2 Saturation ABG Base Excess ABG Hemoglobin Oxyhemoglobin Sodium Potassium Chloride Carbon Dioxide BUN Creatinine Glucose POC Glucose 209 H Uric Acid Calcium Phosphorus Magnesium Iron TIBC AST ALT Total Creatine Kinase CK-MB (CK-2) Troponin T NT-Pro-B Natriuret Pep Total Protein Albumin Triglycerides HDL Cholesterol Folate Urine WBC (Auto) Urine Creatinine Urine Total Protein Vancomycin Trough 05/31/19 05/31/19 06/01/19 13:04 16:42 00:15 WBC RBC Hgb Hct MCV MCH MCHC RDW Plt Count Lymph % (Auto) [place] % (Auto) Eos % (Auto) Lymph # [place] # Eos # Seg Neutrophils % Seg Neuts % (Manual) Lymphocytes % (Manual) Monocytes % (Manual) Eosinophils % (Manual) Nucleated RBC % Seg Neutrophils # Seg Neutrophils # Man Lymphocytes # (Manual) Monocytes # (Manual) Eosinophils # (Manual) PT INR APTT Fibrinogen POC ABG pH ABG pH POC ABG pCO2 POC ABG pO2 ABG pO2 ABG HCO3 ABG O2 Saturation ABG Base Excess ABG Hemoglobin Oxyhemoglobin Sodium 129 L Potassium Chloride 88.6 L Carbon Dioxide 19 L BUN 117 H Creatinine 6.7 H Glucose 205 H POC Glucose 228 H 223 H Uric Acid Calcium 7.4 L Phosphorus 7.40 H Magnesium Iron TIBC AST 58 H ALT 149 H Total Creatine Kinase CK-MB (CK-2) Troponin T NT-Pro-B Natriuret Pep Total Protein 6.0 L Albumin 2.5 L Triglycerides HDL Cholesterol Folate Urine WBC (Auto) Urine Creatinine Urine Total Protein Vancomycin Trough 06/01/19 06/01/19 06/01/19 04:33 05:27 12:31 WBC RBC Hgb Hct MCV MCH MCHC RDW Plt Count Lymph % (Auto) [place] % (Auto) Eos % (Auto) Lymph # [place] # Eos # Seg Neutrophils % Seg Neuts % (Manual) Lymphocytes % (Manual) Monocytes % (Manual) Eosinophils % (Manual) Nucleated RBC % Seg Neutrophils # Seg Neutrophils # Man Lymphocytes # (Manual) Monocytes # (Manual) Eosinophils # (Manual) PT INR APTT Fibrinogen POC ABG pH ABG pH POC ABG pCO2 POC ABG pO2 ABG pO2 56.9 L ABG HCO3 ABG O2 Saturation 85.9 L ABG Base Excess ABG Hemoglobin 8.1 L Oxyhemoglobin 83.6 L Sodium Potassium Chloride Carbon Dioxide BUN Creatinine Glucose POC Glucose 183 H 217 H Uric Acid Calcium Phosphorus Magnesium Iron TIBC AST ALT Total Creatine Kinase CK-MB (CK-2) Troponin T NT-Pro-B Natriuret Pep Total Protein Albumin Triglycerides HDL Cholesterol Folate Urine WBC (Auto) Urine Creatinine Urine Total Protein Vancomycin Trough 06/01/19 06/02/19 06/02/19 18:20 00:00 05:33 WBC RBC Hgb Hct MCV MCH MCHC RDW Plt Count Lymph % (Auto) [place] % (Auto) Eos % (Auto) Lymph # [place] # Eos # Seg Neutrophils % Seg Neuts % (Manual) Lymphocytes % (Manual) Monocytes % (Manual) Eosinophils % (Manual) Nucleated RBC % Seg Neutrophils # Seg Neutrophils # Man Lymphocytes # (Manual) Monocytes # (Manual) Eosinophils # (Manual) PT INR APTT Fibrinogen POC ABG pH ABG pH POC ABG pCO2 POC ABG pO2 ABG pO2 ABG HCO3 ABG O2 Saturation ABG Base Excess ABG Hemoglobin Oxyhemoglobin Sodium Potassium Chloride Carbon Dioxide BUN Creatinine Glucose POC Glucose 265 H 279 H 259 H Uric Acid Calcium Phosphorus Magnesium Iron TIBC AST ALT Total Creatine Kinase CK-MB (CK-2) Troponin T NT-Pro-B Natriuret Pep Total Protein Albumin Triglycerides HDL Cholesterol Folate Urine WBC (Auto) Urine Creatinine Urine Total Protein Vancomycin Trough 06/02/19 06/02/19 06/02/19 11:06 11:06 11:42 WBC 13.1 H RBC 2.92 L Hgb 7.9 L Hct 24.4 L MCV MCH 27 L MCHC RDW 17.4 H Plt Count Lymph % (Auto) [place] % (Auto) Eos % (Auto) Lymph # [place] # Eos # Seg Neutrophils % Seg Neuts % (Manual) 78.0 H Lymphocytes % (Manual) 12.0 L Monocytes % (Manual) 10.0 H Eosinophils % (Manual) Nucleated RBC % Seg Neutrophils # Seg Neutrophils # Man 10.2 H Lymphocytes # (Manual) Monocytes # (Manual) 1.3 H Eosinophils # (Manual) PT INR APTT Fibrinogen POC ABG pH ABG pH POC ABG pCO2 POC ABG pO2 ABG pO2 ABG HCO3 ABG O2 Saturation ABG Base Excess ABG Hemoglobin Oxyhemoglobin Sodium 135 L Potassium Chloride 94.7 L Carbon Dioxide 21 L BUN 107 H Creatinine 4.5 H Glucose 286 H POC Glucose 263 H Uric Acid Calcium 7.9 L Phosphorus 6.30 H Magnesium Iron TIBC AST ALT 104 H Total Creatine Kinase CK-MB (CK-2) Troponin T NT-Pro-B Natriuret Pep Total Protein 6.0 L Albumin 2.7 L Triglycerides HDL Cholesterol Folate Urine WBC (Auto) Urine Creatinine Urine Total Protein Vancomycin Trough 06/02/19 06/02/19 06/03/19 18:17 23:55 05:30 WBC RBC Hgb Hct MCV MCH MCHC RDW Plt Count Lymph % (Auto) [place] % (Auto) Eos % (Auto) Lymph # [place] # Eos # Seg Neutrophils % Seg Neuts % (Manual) Lymphocytes % (Manual) Monocytes % (Manual) Eosinophils % (Manual) Nucleated RBC % Seg Neutrophils # Seg Neutrophils # Man Lymphocytes # (Manual) Monocytes # (Manual) Eosinophils # (Manual) PT INR APTT Fibrinogen POC ABG pH ABG pH POC ABG pCO2 POC ABG pO2 ABG pO2 ABG HCO3 ABG O2 Saturation ABG Base Excess ABG Hemoglobin Oxyhemoglobin Sodium Potassium Chloride 95.1 L Carbon Dioxide 21 L BUN 119 H Creatinine 4.1 H Glucose 330 H POC Glucose 276 H 244 H Uric Acid Calcium 8.1 L Phosphorus Magnesium Iron TIBC AST ALT 98 H Total Creatine Kinase CK-MB (CK-2) Troponin T NT-Pro-B Natriuret Pep Total Protein 5.8 L Albumin 2.8 L Triglycerides HDL Cholesterol Folate Urine WBC (Auto) Urine Creatinine Urine Total Protein Vancomycin Trough 06/03/19 06/03/19 06/03/19 05:30 06:04 09:42 WBC 12.8 H RBC 3.01 L Hgb 8.2 L Hct 25.4 L MCV MCH 27 L MCHC RDW 17.5 H Plt Count Lymph % (Auto) [place] % (Auto) Eos % (Auto) Lymph # [place] # Eos # Seg Neutrophils % Seg Neuts % (Manual) 78.0 H Lymphocytes % (Manual) 10.0 L Monocytes % (Manual) 12.0 H Eosinophils % (Manual) Nucleated RBC % Seg Neutrophils # Seg Neutrophils # Man 10.0 H Lymphocytes # (Manual) Monocytes # (Manual) 1.5 H Eosinophils # (Manual) PT INR APTT Fibrinogen POC ABG pH ABG pH POC ABG pCO2 POC ABG pO2 ABG pO2 ABG HCO3 ABG O2 Saturation ABG Base Excess ABG Hemoglobin Oxyhemoglobin Sodium Potassium Chloride Carbon Dioxide BUN 106 H Creatinine Glucose POC Glucose 254 H Uric Acid Calcium Phosphorus Magnesium Iron TIBC AST ALT Total Creatine Kinase CK-MB (CK-2) Troponin T NT-Pro-B Natriuret Pep Total Protein Albumin Triglycerides HDL Cholesterol Folate Urine WBC (Auto) Urine Creatinine Urine Total Protein Vancomycin Trough 06/03/19 06/03/19 06/03/19 12:52 17:25 23:37 WBC RBC Hgb Hct MCV MCH MCHC RDW Plt Count Lymph % (Auto) [place] % (Auto) Eos % (Auto) Lymph # [place] # Eos # Seg Neutrophils % Seg Neuts % (Manual) Lymphocytes % (Manual) Monocytes % (Manual) Eosinophils % (Manual) Nucleated RBC % Seg Neutrophils # Seg Neutrophils # Man Lymphocytes # (Manual) Monocytes # (Manual) Eosinophils # (Manual) PT INR APTT Fibrinogen POC ABG pH ABG pH POC ABG pCO2 POC ABG pO2 ABG pO2 ABG HCO3 ABG O2 Saturation ABG Base Excess ABG Hemoglobin Oxyhemoglobin Sodium Potassium Chloride Carbon Dioxide BUN Creatinine Glucose POC Glucose 274 H 285 H 310 H Uric Acid Calcium Phosphorus Magnesium Iron TIBC AST ALT Total Creatine Kinase CK-MB (CK-2) Troponin T NT-Pro-B Natriuret Pep Total Protein Albumin Triglycerides HDL Cholesterol Folate Urine WBC (Auto) Urine Creatinine Urine Total Protein Vancomycin Trough 06/04/19 06/04/19 06/04/19 04:57 05:03 11:50 WBC RBC Hgb Hct MCV MCH MCHC RDW Plt Count Lymph % (Auto) [place] % (Auto) Eos % (Auto) Lymph # [place] # Eos # Seg Neutrophils % Seg Neuts % (Manual) Lymphocytes % (Manual) Monocytes % (Manual) Eosinophils % (Manual) Nucleated RBC % Seg Neutrophils # Seg Neutrophils # Man Lymphocytes # (Manual) Monocytes # (Manual) Eosinophils # (Manual) PT INR APTT Fibrinogen POC ABG pH 7.488 H ABG pH POC ABG pCO2 POC ABG pO2 ABG pO2 ABG HCO3 ABG O2 Saturation ABG Base Excess ABG Hemoglobin Oxyhemoglobin Sodium Potassium Chloride Carbon Dioxide BUN Creatinine Glucose POC Glucose 275 H 279 H Uric Acid Calcium Phosphorus Magnesium Iron TIBC AST ALT Total Creatine Kinase CK-MB (CK-2) Troponin T NT-Pro-B Natriuret Pep Total Protein Albumin Triglycerides HDL Cholesterol Folate Urine WBC (Auto) Urine Creatinine Urine Total Protein Vancomycin Trough 06/04/19 06/04/19 06/04/19 18:32 22:03 23:55 WBC RBC Hgb Hct MCV MCH MCHC RDW Plt Count Lymph % (Auto) [place] % (Auto) Eos % (Auto) Lymph # [place] # Eos # Seg Neutrophils % Seg Neuts % (Manual) Lymphocytes % (Manual) Monocytes % (Manual) Eosinophils % (Manual) Nucleated RBC % Seg Neutrophils # Seg Neutrophils # Man Lymphocytes # (Manual) Monocytes # (Manual) Eosinophils # (Manual) PT INR APTT Fibrinogen POC ABG pH ABG pH POC ABG pCO2 POC ABG pO2 ABG pO2 ABG HCO3 ABG O2 Saturation ABG Base Excess ABG Hemoglobin Oxyhemoglobin Sodium Potassium Chloride Carbon Dioxide BUN Creatinine Glucose POC Glucose 267 H 307 H 292 H Uric Acid Calcium Phosphorus Magnesium Iron TIBC AST ALT Total Creatine Kinase CK-MB (CK-2) Troponin T NT-Pro-B Natriuret Pep Total Protein Albumin Triglycerides HDL Cholesterol Folate Urine WBC (Auto) Urine Creatinine Urine Total Protein Vancomycin Trough 06/05/19 06/05/19 06/05/19 03:52 06:41 12:29 WBC RBC Hgb Hct MCV MCH MCHC RDW Plt Count Lymph % (Auto) [place] % (Auto) Eos % (Auto) Lymph # [place] # Eos # Seg Neutrophils % Seg Neuts % (Manual) Lymphocytes % (Manual) Monocytes % (Manual) Eosinophils % (Manual) Nucleated RBC % Seg Neutrophils # Seg Neutrophils # Man Lymphocytes # (Manual) Monocytes # (Manual) Eosinophils # (Manual) PT INR APTT Fibrinogen POC ABG pH 7.462 H ABG pH POC ABG pCO2 POC ABG pO2 ABG pO2 ABG HCO3 ABG O2 Saturation ABG Base Excess ABG Hemoglobin Oxyhemoglobin Sodium Potassium Chloride Carbon Dioxide BUN Creatinine Glucose POC Glucose 369 H 265 H Uric Acid Calcium Phosphorus Magnesium Iron TIBC AST ALT Total Creatine Kinase CK-MB (CK-2) Troponin T NT-Pro-B Natriuret Pep Total Protein Albumin Triglycerides HDL Cholesterol Folate Urine WBC (Auto) Urine Creatinine Urine Total Protein Vancomycin Trough 06/05/19 06/05/19 06/05/19 18:20 21:42 23:21 WBC RBC Hgb Hct MCV MCH MCHC RDW Plt Count Lymph % (Auto) [place] % (Auto) Eos % (Auto) Lymph # [place] # Eos # Seg Neutrophils % Seg Neuts % (Manual) Lymphocytes % (Manual) Monocytes % (Manual) Eosinophils % (Manual) Nucleated RBC % Seg Neutrophils # Seg Neutrophils # Man Lymphocytes # (Manual) Monocytes # (Manual) Eosinophils # (Manual) PT INR APTT Fibrinogen POC ABG pH ABG pH POC ABG pCO2 POC ABG pO2 ABG pO2 ABG HCO3 ABG O2 Saturation ABG Base Excess ABG Hemoglobin Oxyhemoglobin Sodium Potassium Chloride Carbon Dioxide BUN Creatinine Glucose POC Glucose 249 H 246 H 274 H Uric Acid Calcium Phosphorus Magnesium Iron TIBC AST ALT Total Creatine Kinase CK-MB (CK-2) Troponin T NT-Pro-B Natriuret Pep Total Protein Albumin Triglycerides HDL Cholesterol Folate Urine WBC (Auto) Urine Creatinine Urine Total Protein Vancomycin Trough 06/06/19 06/06/19 06/06/19 04:00 05:49 11:34 WBC 18.1 H RBC 3.53 L Hgb 9.5 L Hct 30.3 L MCV MCH 27 L MCHC 31 L RDW 19.5 H Plt Count Lymph % (Auto) [place] % (Auto) Eos % (Auto) Lymph # [place] # Eos # Seg Neutrophils % Seg Neuts % (Manual) 87.0 H Lymphocytes % (Manual) 3.0 L Monocytes % (Manual) 8.0 H Eosinophils % (Manual) Nucleated RBC % Seg Neutrophils # Seg Neutrophils # Man 15.7 H Lymphocytes # (Manual) 0.5 L Monocytes # (Manual) 1.4 H Eosinophils # (Manual) PT INR APTT Fibrinogen POC ABG pH ABG pH 7.472 H POC ABG pCO2 POC ABG pO2 ABG pO2 76.4 L ABG HCO3 28.1 H ABG O2 Saturation ABG Base Excess 4.3 H ABG Hemoglobin 12.5 L Oxyhemoglobin 93.8 L Sodium Potassium Chloride Carbon Dioxide BUN Creatinine Glucose POC Glucose 340 H Uric Acid Calcium Phosphorus Magnesium Iron TIBC AST ALT Total Creatine Kinase CK-MB (CK-2) Troponin T NT-Pro-B Natriuret Pep Total Protein Albumin Triglycerides HDL Cholesterol Folate Urine WBC (Auto) Urine Creatinine Urine Total Protein Vancomycin Trough 06/06/19 06/06/19 06/06/19 11:34 12:11 18:10 WBC RBC Hgb Hct MCV MCH MCHC RDW Plt Count Lymph % (Auto) [place] % (Auto) Eos % (Auto) Lymph # [place] # Eos # Seg Neutrophils % Seg Neuts % (Manual) Lymphocytes % (Manual) Monocytes % (Manual) Eosinophils % (Manual) Nucleated RBC % Seg Neutrophils # Seg Neutrophils # Man Lymphocytes # (Manual) Monocytes # (Manual) Eosinophils # (Manual) PT INR APTT Fibrinogen POC ABG pH ABG pH POC ABG pCO2 POC ABG pO2 ABG pO2 ABG HCO3 ABG O2 Saturation ABG Base Excess ABG Hemoglobin Oxyhemoglobin Sodium Potassium Chloride Carbon Dioxide BUN 70 H Creatinine Glucose 310 H POC Glucose 283 H 301 H Uric Acid Calcium 8.3 L Phosphorus 4.60 H Magnesium Iron TIBC AST ALT 75 H Total Creatine Kinase CK-MB (CK-2) Troponin T NT-Pro-B Natriuret Pep Total Protein 5.6 L Albumin 2.9 L Triglycerides HDL Cholesterol Folate Urine WBC (Auto) Urine Creatinine Urine Total Protein Vancomycin Trough 06/06/19 06/06/19 06/07/19 22:21 23:16 04:30 WBC RBC Hgb Hct MCV MCH MCHC RDW Plt Count Lymph % (Auto) [place] % (Auto) Eos % (Auto) Lymph # [place] # Eos # Seg Neutrophils % Seg Neuts % (Manual) Lymphocytes % (Manual) Monocytes % (Manual) Eosinophils % (Manual) Nucleated RBC % Seg Neutrophils # Seg Neutrophils # Man Lymphocytes # (Manual) Monocytes # (Manual) Eosinophils # (Manual) PT INR APTT Fibrinogen POC ABG pH ABG pH 7.480 H POC ABG pCO2 POC ABG pO2 ABG pO2 77.0 L ABG HCO3 27.2 H ABG O2 Saturation ABG Base Excess 3.5 H ABG Hemoglobin 7.1 L Oxyhemoglobin 94.2 L Sodium Potassium Chloride Carbon Dioxide BUN Creatinine Glucose POC Glucose 289 H 343 H Uric Acid Calcium Phosphorus Magnesium Iron TIBC AST ALT Total Creatine Kinase CK-MB (CK-2) Troponin T NT-Pro-B Natriuret Pep Total Protein Albumin Triglycerides HDL Cholesterol Folate Urine WBC (Auto) Urine Creatinine Urine Total Protein Vancomycin Trough 06/07/19 06/07/19 06/07/19 05:15 12:52 18:41 WBC RBC Hgb Hct MCV MCH MCHC RDW Plt Count Lymph % (Auto) [place] % (Auto) Eos % (Auto) Lymph # [place] # Eos # Seg Neutrophils % Seg Neuts % (Manual) Lymphocytes % (Manual) Monocytes % (Manual) Eosinophils % (Manual) Nucleated RBC % Seg Neutrophils # Seg Neutrophils # Man Lymphocytes # (Manual) Monocytes # (Manual) Eosinophils # (Manual) PT INR APTT Fibrinogen POC ABG pH ABG pH POC ABG pCO2 POC ABG pO2 ABG pO2 ABG HCO3 ABG O2 Saturation ABG Base Excess ABG Hemoglobin Oxyhemoglobin Sodium Potassium Chloride Carbon Dioxide BUN Creatinine Glucose POC Glucose 307 H 226 H 187 H Uric Acid Calcium Phosphorus Magnesium Iron TIBC AST ALT Total Creatine Kinase CK-MB (CK-2) Troponin T NT-Pro-B Natriuret Pep Total Protein Albumin Triglycerides HDL Cholesterol Folate Urine WBC (Auto) Urine Creatinine Urine Total Protein Vancomycin Trough 06/07/19 06/07/19 06/08/19 22:54 23:46 04:20 WBC 16.0 H RBC Hgb 10.0 L Hct 32.1 L MCV MCH 27 L MCHC 31 L RDW 19.4 H Plt Count Lymph % (Auto) [place] % (Auto) Eos % (Auto) Lymph # [place] # Eos # Seg Neutrophils % Seg Neuts % (Manual) 87.0 H Lymphocytes % (Manual) 7.0 L Monocytes % (Manual) Eosinophils % (Manual) Nucleated RBC % Seg Neutrophils # Seg Neutrophils # Man 13.9 H Lymphocytes # (Manual) 1.1 L Monocytes # (Manual) 1.0 H Eosinophils # (Manual) PT INR APTT Fibrinogen POC ABG pH ABG pH POC ABG pCO2 POC ABG pO2 ABG pO2 ABG HCO3 ABG O2 Saturation ABG Base Excess ABG Hemoglobin Oxyhemoglobin Sodium Potassium Chloride Carbon Dioxide BUN Creatinine Glucose POC Glucose 199 H 172 H Uric Acid Calcium Phosphorus Magnesium Iron TIBC AST ALT Total Creatine Kinase CK-MB (CK-2) Troponin T NT-Pro-B Natriuret Pep Total Protein Albumin Triglycerides HDL Cholesterol Folate Urine WBC (Auto) Urine Creatinine Urine Total Protein Vancomycin Trough 06/08/19 06/08/19 06/08/19 04:20 05:15 11:31 WBC RBC Hgb Hct MCV MCH MCHC RDW Plt Count Lymph % (Auto) [place] % (Auto) Eos % (Auto) Lymph # [place] # Eos # Seg Neutrophils % Seg Neuts % (Manual) Lymphocytes % (Manual) Monocytes % (Manual) Eosinophils % (Manual) Nucleated RBC % Seg Neutrophils # Seg Neutrophils # Man Lymphocytes # (Manual) Monocytes # (Manual) Eosinophils # (Manual) PT INR APTT Fibrinogen POC ABG pH ABG pH POC ABG pCO2 POC ABG pO2 ABG pO2 ABG HCO3 ABG O2 Saturation ABG Base Excess ABG Hemoglobin Oxyhemoglobin Sodium 146 H D Potassium Chloride Carbon Dioxide BUN 77 H Creatinine Glucose 205 H POC Glucose 209 H 181 H Uric Acid Calcium Phosphorus Magnesium Iron TIBC AST ALT 66 H Total Creatine Kinase CK-MB (CK-2) Troponin T NT-Pro-B Natriuret Pep Total Protein 5.5 L Albumin 2.9 L Triglycerides HDL Cholesterol Folate Urine WBC (Auto) Urine Creatinine Urine Total Protein Vancomycin Trough 06/08/19 06/08/19 06/09/19 17:28 23:24 05:20 WBC RBC Hgb Hct MCV MCH MCHC RDW Plt Count Lymph % (Auto) [place] % (Auto) Eos % (Auto) Lymph # [place] # Eos # Seg Neutrophils % Seg Neuts % (Manual) Lymphocytes % (Manual) Monocytes % (Manual) Eosinophils % (Manual) Nucleated RBC % Seg Neutrophils # Seg Neutrophils # Man Lymphocytes # (Manual) Monocytes # (Manual) Eosinophils # (Manual) PT INR APTT Fibrinogen POC ABG pH ABG pH POC ABG pCO2 POC ABG pO2 ABG pO2 ABG HCO3 ABG O2 Saturation ABG Base Excess ABG Hemoglobin Oxyhemoglobin Sodium Potassium Chloride Carbon Dioxide BUN Creatinine Glucose POC Glucose 215 H 200 H 173 H Uric Acid Calcium Phosphorus Magnesium Iron TIBC AST ALT Total Creatine Kinase CK-MB (CK-2) Troponin T NT-Pro-B Natriuret Pep Total Protein Albumin Triglycerides HDL Cholesterol Folate Urine WBC (Auto) Urine Creatinine Urine Total Protein Vancomycin Trough 06/09/19 06/09/19 06/09/19 12:07 18:32 23:51 WBC RBC Hgb Hct MCV MCH MCHC RDW Plt Count Lymph % (Auto) [place] % (Auto) Eos % (Auto) Lymph # [place] # Eos # Seg Neutrophils % Seg Neuts % (Manual) Lymphocytes % (Manual) Monocytes % (Manual) Eosinophils % (Manual) Nucleated RBC % Seg Neutrophils # Seg Neutrophils # Man Lymphocytes # (Manual) Monocytes # (Manual) Eosinophils # (Manual) PT INR APTT Fibrinogen POC ABG pH ABG pH POC ABG pCO2 POC ABG pO2 ABG pO2 ABG HCO3 ABG O2 Saturation ABG Base Excess ABG Hemoglobin Oxyhemoglobin Sodium Potassium Chloride Carbon Dioxide BUN Creatinine Glucose POC Glucose 117 H 169 H 147 H Uric Acid Calcium Phosphorus Magnesium Iron TIBC AST ALT Total Creatine Kinase CK-MB (CK-2) Troponin T NT-Pro-B Natriuret Pep Total Protein Albumin Triglycerides HDL Cholesterol Folate Urine WBC (Auto) Urine Creatinine Urine Total Protein Vancomycin Trough 06/10/19 06/10/19 06/10/19 05:45 05:45 06:01 WBC 14.6 H RBC Hgb 9.9 L Hct 32.2 L MCV MCH 27 L MCHC 31 L RDW 19.6 H Plt Count Lymph % (Auto) 10.5 L [place] % (Auto) 9.4 H Eos % (Auto) Lymph # [place] # 1.4 H Eos # Seg Neutrophils % 79.9 H Seg Neuts % (Manual) Lymphocytes % (Manual) Monocytes % (Manual) Eosinophils % (Manual) Nucleated RBC % Seg Neutrophils # 11.7 H Seg Neutrophils # Man Lymphocytes # (Manual) Monocytes # (Manual) Eosinophils # (Manual) PT INR APTT Fibrinogen POC ABG pH ABG pH POC ABG pCO2 POC ABG pO2 ABG pO2 ABG HCO3 ABG O2 Saturation ABG Base Excess ABG Hemoglobin Oxyhemoglobin Sodium 150 H Potassium Chloride 108.3 H Carbon Dioxide BUN 49 H Creatinine Glucose 172 H POC Glucose 165 H Uric Acid Calcium Phosphorus Magnesium 1.40 L Iron TIBC AST ALT Total Creatine Kinase CK-MB (CK-2) Troponin T NT-Pro-B Natriuret Pep Total Protein Albumin Triglycerides HDL Cholesterol Folate Urine WBC (Auto) Urine Creatinine Urine Total Protein Vancomycin Trough 06/10/19 06/10/19 06/11/19 12:11 18:30 00:02 WBC RBC Hgb Hct MCV MCH MCHC RDW Plt Count Lymph % (Auto) [place] % (Auto) Eos % (Auto) Lymph # [place] # Eos # Seg Neutrophils % Seg Neuts % (Manual) Lymphocytes % (Manual) Monocytes % (Manual) Eosinophils % (Manual) Nucleated RBC % Seg Neutrophils # Seg Neutrophils # Man Lymphocytes # (Manual) Monocytes # (Manual) Eosinophils # (Manual) PT INR APTT Fibrinogen POC ABG pH ABG pH POC ABG pCO2 POC ABG pO2 ABG pO2 ABG HCO3 ABG O2 Saturation ABG Base Excess ABG Hemoglobin Oxyhemoglobin Sodium Potassium Chloride Carbon Dioxide BUN Creatinine Glucose POC Glucose 150 H 154 H 130 H Uric Acid Calcium Phosphorus Magnesium Iron TIBC AST ALT Total Creatine Kinase CK-MB (CK-2) Troponin T NT-Pro-B Natriuret Pep Total Protein Albumin Triglycerides HDL Cholesterol Folate Urine WBC (Auto) Urine Creatinine Urine Total Protein Vancomycin Trough 06/11/19 06/11/19 06/11/19 05:33 08:34 12:33 WBC RBC Hgb Hct MCV MCH MCHC RDW Plt Count Lymph % (Auto) [place] % (Auto) Eos % (Auto) Lymph # [place] # Eos # Seg Neutrophils % Seg Neuts % (Manual) Lymphocytes % (Manual) Monocytes % (Manual) Eosinophils % (Manual) Nucleated RBC % Seg Neutrophils # Seg Neutrophils # Man Lymphocytes # (Manual) Monocytes # (Manual) Eosinophils # (Manual) PT INR APTT Fibrinogen POC ABG pH ABG pH POC ABG pCO2 POC ABG pO2 ABG pO2 ABG HCO3 ABG O2 Saturation ABG Base Excess ABG Hemoglobin Oxyhemoglobin Sodium 154 H Potassium Chloride 111.6 H Carbon Dioxide BUN 41 H Creatinine Glucose 147 H POC Glucose 183 H 185 H Uric Acid Calcium Phosphorus Magnesium Iron TIBC AST ALT Total Creatine Kinase CK-MB (CK-2) Troponin T NT-Pro-B Natriuret Pep Total Protein Albumin Triglycerides HDL Cholesterol Folate Urine WBC (Auto) Urine Creatinine Urine Total Protein Vancomycin Trough 06/11/19 06/11/19 06/12/19 18:22 23:46 03:21 WBC 11.9 H RBC 3.61 L Hgb 9.9 L Hct 31.7 L MCV MCH 27 L MCHC 31 L RDW 19.3 H Plt Count Lymph % (Auto) 10.6 L [place] % (Auto) 8.6 H Eos % (Auto) Lymph # [place] # 1.0 H Eos # Seg Neutrophils % 80.6 H Seg Neuts % (Manual) Lymphocytes % (Manual) Monocytes % (Manual) Eosinophils % (Manual) Nucleated RBC % Seg Neutrophils # 9.6 H Seg Neutrophils # Man Lymphocytes # (Manual) Monocytes # (Manual) Eosinophils # (Manual) PT INR APTT Fibrinogen POC ABG pH ABG pH POC ABG pCO2 POC ABG pO2 ABG pO2 ABG HCO3 ABG O2 Saturation ABG Base Excess ABG Hemoglobin Oxyhemoglobin Sodium Potassium Chloride Carbon Dioxide BUN Creatinine Glucose POC Glucose 158 H 182 H Uric Acid Calcium Phosphorus Magnesium Iron TIBC AST ALT Total Creatine Kinase CK-MB (CK-2) Troponin T NT-Pro-B Natriuret Pep Total Protein Albumin Triglycerides HDL Cholesterol Folate Urine WBC (Auto) Urine Creatinine Urine Total Protein Vancomycin Trough 06/12/19 06/12/19 06/12/19 03:21 06:04 11:28 WBC RBC Hgb Hct MCV MCH MCHC RDW Plt Count Lymph % (Auto) [place] % (Auto) Eos % (Auto) Lymph # [place] # Eos # Seg Neutrophils % Seg Neuts % (Manual) Lymphocytes % (Manual) Monocytes % (Manual) Eosinophils % (Manual) Nucleated RBC % Seg Neutrophils # Seg Neutrophils # Man Lymphocytes # (Manual) Monocytes # (Manual) Eosinophils # (Manual) PT INR APTT Fibrinogen POC ABG pH ABG pH POC ABG pCO2 POC ABG pO2 ABG pO2 ABG HCO3 ABG O2 Saturation ABG Base Excess ABG Hemoglobin Oxyhemoglobin Sodium 148 H Potassium Chloride 107.3 H Carbon Dioxide BUN 34 H Creatinine 0.7 L Glucose 194 H POC Glucose 133 H 167 H Uric Acid Calcium Phosphorus Magnesium 1.40 L Iron TIBC AST ALT Total Creatine Kinase CK-MB (CK-2) Troponin T NT-Pro-B Natriuret Pep Total Protein Albumin Triglycerides HDL Cholesterol Folate Urine WBC (Auto) Urine Creatinine Urine Total Protein Vancomycin Trough 06/12/19 06/12/19 06/13/19 18:47 21:27 00:04 WBC RBC Hgb Hct MCV MCH MCHC RDW Plt Count Lymph % (Auto) [place] % (Auto) Eos % (Auto) Lymph # [place] # Eos # Seg Neutrophils % Seg Neuts % (Manual) Lymphocytes % (Manual) Monocytes % (Manual) Eosinophils % (Manual) Nucleated RBC % Seg Neutrophils # Seg Neutrophils # Man Lymphocytes # (Manual) Monocytes # (Manual) Eosinophils # (Manual) PT INR APTT Fibrinogen POC ABG pH ABG pH POC ABG pCO2 POC ABG pO2 ABG pO2 ABG HCO3 ABG O2 Saturation ABG Base Excess ABG Hemoglobin Oxyhemoglobin Sodium Potassium Chloride Carbon Dioxide BUN Creatinine Glucose POC Glucose 210 H 263 H 248 H Uric Acid Calcium Phosphorus Magnesium Iron TIBC AST ALT Total Creatine Kinase CK-MB (CK-2) Troponin T NT-Pro-B Natriuret Pep Total Protein Albumin Triglycerides HDL Cholesterol Folate Urine WBC (Auto) Urine Creatinine Urine Total Protein Vancomycin Trough 06/13/19 06/13/19 06/13/19 04:32 05:46 13:30 WBC RBC Hgb Hct MCV MCH MCHC RDW Plt Count Lymph % (Auto) [place] % (Auto) Eos % (Auto) Lymph # [place] # Eos # Seg Neutrophils % Seg Neuts % (Manual) Lymphocytes % (Manual) Monocytes % (Manual) Eosinophils % (Manual) Nucleated RBC % Seg Neutrophils # Seg Neutrophils # Man Lymphocytes # (Manual) Monocytes # (Manual) Eosinophils # (Manual) PT INR APTT Fibrinogen POC ABG pH ABG pH POC ABG pCO2 POC ABG pO2 ABG pO2 ABG HCO3 ABG O2 Saturation ABG Base Excess ABG Hemoglobin Oxyhemoglobin Sodium Potassium Chloride Carbon Dioxide BUN 27 H Creatinine 0.7 L Glucose 253 H POC Glucose 201 H 241 H Uric Acid Calcium Phosphorus Magnesium Iron TIBC AST ALT Total Creatine Kinase CK-MB (CK-2) Troponin T NT-Pro-B Natriuret Pep Total Protein Albumin Triglycerides HDL Cholesterol Folate Urine WBC (Auto) Urine Creatinine Urine Total Protein Vancomycin Trough 06/13/19 06/13/19 06/14/19 17:33 23:49 04:50 WBC RBC Hgb Hct MCV MCH MCHC RDW Plt Count Lymph % (Auto) [place] % (Auto) Eos % (Auto) Lymph # [place] # Eos # Seg Neutrophils % Seg Neuts % (Manual) Lymphocytes % (Manual) Monocytes % (Manual) Eosinophils % (Manual) Nucleated RBC % Seg Neutrophils # Seg Neutrophils # Man Lymphocytes # (Manual) Monocytes # (Manual) Eosinophils # (Manual) PT INR APTT Fibrinogen POC ABG pH ABG pH POC ABG pCO2 POC ABG pO2 ABG pO2 ABG HCO3 ABG O2 Saturation ABG Base Excess ABG Hemoglobin Oxyhemoglobin Sodium Potassium Chloride Carbon Dioxide BUN 37 H Creatinine Glucose 256 H POC Glucose 264 H 236 H Uric Acid Calcium Phosphorus Magnesium Iron TIBC AST ALT Total Creatine Kinase CK-MB (CK-2) Troponin T NT-Pro-B Natriuret Pep Total Protein Albumin Triglycerides HDL Cholesterol Folate Urine WBC (Auto) Urine Creatinine Urine Total Protein Vancomycin Trough 06/14/19 06/14/19 06/14/19 05:26 12:31 18:32 WBC RBC Hgb Hct MCV MCH MCHC RDW Plt Count Lymph % (Auto) [place] % (Auto) Eos % (Auto) Lymph # [place] # Eos # Seg Neutrophils % Seg Neuts % (Manual) Lymphocytes % (Manual) Monocytes % (Manual) Eosinophils % (Manual) Nucleated RBC % Seg Neutrophils # Seg Neutrophils # Man Lymphocytes # (Manual) Monocytes # (Manual) Eosinophils # (Manual) PT INR APTT Fibrinogen POC ABG pH ABG pH POC ABG pCO2 POC ABG pO2 ABG pO2 ABG HCO3 ABG O2 Saturation ABG Base Excess ABG Hemoglobin Oxyhemoglobin Sodium Potassium Chloride Carbon Dioxide BUN Creatinine Glucose POC Glucose 239 H 116 H 247 H Uric Acid Calcium Phosphorus Magnesium Iron TIBC AST ALT Total Creatine Kinase CK-MB (CK-2) Troponin T NT-Pro-B Natriuret Pep Total Protein Albumin Triglycerides HDL Cholesterol Folate Urine WBC (Auto) Urine Creatinine Urine Total Protein Vancomycin Trough 06/14/19 06/15/19 06/15/19 23:57 04:05 05:55 WBC RBC Hgb Hct MCV MCH MCHC RDW Plt Count Lymph % (Auto) [place] % (Auto) Eos % (Auto) Lymph # [place] # Eos # Seg Neutrophils % Seg Neuts % (Manual) Lymphocytes % (Manual) Monocytes % (Manual) Eosinophils % (Manual) Nucleated RBC % Seg Neutrophils # Seg Neutrophils # Man Lymphocytes # (Manual) Monocytes # (Manual) Eosinophils # (Manual) PT INR APTT Fibrinogen POC ABG pH ABG pH POC ABG pCO2 POC ABG pO2 ABG pO2 ABG HCO3 ABG O2 Saturation ABG Base Excess ABG Hemoglobin Oxyhemoglobin Sodium Potassium Chloride Carbon Dioxide BUN 46 H Creatinine 0.7 L Glucose 265 H POC Glucose 206 H 265 H Uric Acid Calcium Phosphorus Magnesium Iron TIBC AST ALT Total Creatine Kinase CK-MB (CK-2) Troponin T NT-Pro-B Natriuret Pep Total Protein Albumin Triglycerides HDL Cholesterol Folate Urine WBC (Auto) Urine Creatinine Urine Total Protein Vancomycin Trough 06/15/19 06/15/19 06/15/19 12:08 18:45 23:41 WBC RBC Hgb Hct MCV MCH MCHC RDW Plt Count Lymph % (Auto) [place] % (Auto) Eos % (Auto) Lymph # [place] # Eos # Seg Neutrophils % Seg Neuts % (Manual) Lymphocytes % (Manual) Monocytes % (Manual) Eosinophils % (Manual) Nucleated RBC % Seg Neutrophils # Seg Neutrophils # Man Lymphocytes # (Manual) Monocytes # (Manual) Eosinophils # (Manual) PT INR APTT Fibrinogen POC ABG pH ABG pH POC ABG pCO2 POC ABG pO2 ABG pO2 ABG HCO3 ABG O2 Saturation ABG Base Excess ABG Hemoglobin Oxyhemoglobin Sodium Potassium Chloride Carbon Dioxide BUN Creatinine Glucose POC Glucose 224 H 177 H 193 H Uric Acid Calcium Phosphorus Magnesium Iron TIBC AST ALT Total Creatine Kinase CK-MB (CK-2) Troponin T NT-Pro-B Natriuret Pep Total Protein Albumin Triglycerides HDL Cholesterol Folate Urine WBC (Auto) Urine Creatinine Urine Total Protein Vancomycin Trough 06/16/19 06/16/19 06/16/19 05:00 05:00 05:40 WBC 11.9 H RBC 3.24 L Hgb 9.0 L Hct 29.0 L MCV MCH MCHC 31 L RDW 18.6 H Plt Count 111 L Lymph % (Auto) [place] % (Auto) Eos % (Auto) Lymph # [place] # Eos # Seg Neutrophils % Seg Neuts % (Manual) 92.0 H Lymphocytes % (Manual) 2.0 L Monocytes % (Manual) Eosinophils % (Manual) Nucleated RBC % Seg Neutrophils # Seg Neutrophils # Man 10.9 H Lymphocytes # (Manual) 0.2 L Monocytes # (Manual) Eosinophils # (Manual) PT INR APTT Fibrinogen POC ABG pH ABG pH POC ABG pCO2 POC ABG pO2 ABG pO2 ABG HCO3 ABG O2 Saturation ABG Base Excess ABG Hemoglobin Oxyhemoglobin Sodium Potassium Chloride Carbon Dioxide 33 H BUN 49 H Creatinine 0.7 L Glucose 264 H POC Glucose 247 H Uric Acid Calcium Phosphorus Magnesium Iron TIBC AST ALT Total Creatine Kinase CK-MB (CK-2) Troponin T NT-Pro-B Natriuret Pep Total Protein Albumin Triglycerides HDL Cholesterol Folate Urine WBC (Auto) Urine Creatinine Urine Total Protein Vancomycin Trough 06/16/19 06/16/19 06/16/19 12:03 17:11 18:11 WBC RBC Hgb Hct MCV MCH MCHC RDW Plt Count Lymph % (Auto) [place] % (Auto) Eos % (Auto) Lymph # [place] # Eos # Seg Neutrophils % Seg Neuts % (Manual) Lymphocytes % (Manual) Monocytes % (Manual) Eosinophils % (Manual) Nucleated RBC % Seg Neutrophils # Seg Neutrophils # Man Lymphocytes # (Manual) Monocytes # (Manual) Eosinophils # (Manual) PT INR APTT Fibrinogen POC ABG pH ABG pH 7.289 L POC ABG pCO2 POC ABG pO2 ABG pO2 399.3 H ABG HCO3 30.1 H ABG O2 Saturation 99.6 H ABG Base Excess ABG Hemoglobin 8.6 L Oxyhemoglobin Sodium Potassium Chloride Carbon Dioxide BUN Creatinine Glucose POC Glucose 252 H 254 H Uric Acid Calcium Phosphorus Magnesium Iron TIBC AST ALT Total Creatine Kinase CK-MB (CK-2) Troponin T NT-Pro-B Natriuret Pep Total Protein Albumin Triglycerides HDL Cholesterol Folate Urine WBC (Auto) Urine Creatinine Urine Total Protein Vancomycin Trough 06/16/19 06/17/19 06/17/19 23:16 05:30 05:53 WBC RBC Hgb Hct MCV MCH MCHC RDW Plt Count Lymph % (Auto) [place] % (Auto) Eos % (Auto) Lymph # [place] # Eos # Seg Neutrophils % Seg Neuts % (Manual) Lymphocytes % (Manual) Monocytes % (Manual) Eosinophils % (Manual) Nucleated RBC % Seg Neutrophils # Seg Neutrophils # Man Lymphocytes # (Manual) Monocytes # (Manual) Eosinophils # (Manual) PT INR APTT Fibrinogen POC ABG pH ABG pH POC ABG pCO2 POC ABG pO2 ABG pO2 ABG HCO3 ABG O2 Saturation ABG Base Excess ABG Hemoglobin Oxyhemoglobin Sodium 147 H Potassium Chloride Carbon Dioxide 32 H BUN 60 H Creatinine Glucose 205 H POC Glucose 238 H 211 H Uric Acid Calcium Phosphorus Magnesium Iron TIBC AST ALT Total Creatine Kinase CK-MB (CK-2) Troponin T NT-Pro-B Natriuret Pep Total Protein Albumin Triglycerides HDL Cholesterol Folate Urine WBC (Auto) Urine Creatinine Urine Total Protein Vancomycin Trough 06/17/19 06/17/19 06/17/19 09:50 12:27 12:45 WBC RBC 2.79 L Hgb 8.2 L Hct 24.6 L MCV MCH MCHC RDW 18.5 H Plt Count 95 L Lymph % (Auto) [place] % (Auto) Eos % (Auto) Lymph # [place] # Eos # Seg Neutrophils % Seg Neuts % (Manual) Lymphocytes % (Manual) Monocytes % (Manual) Eosinophils % (Manual) Nucleated RBC % Seg Neutrophils # Seg Neutrophils # Man Lymphocytes # (Manual) Monocytes # (Manual) Eosinophils # (Manual) PT INR APTT Fibrinogen 194 L POC ABG pH ABG pH POC ABG pCO2 POC ABG pO2 ABG pO2 ABG HCO3 ABG O2 Saturation ABG Base Excess ABG Hemoglobin Oxyhemoglobin Sodium Potassium Chloride Carbon Dioxide BUN Creatinine Glucose POC Glucose 224 H Uric Acid Calcium Phosphorus Magnesium Iron TIBC AST ALT Total Creatine Kinase CK-MB (CK-2) Troponin T NT-Pro-B Natriuret Pep Total Protein Albumin Triglycerides HDL Cholesterol Folate Urine WBC (Auto) Urine Creatinine Urine Total Protein Vancomycin Trough 06/17/19 06/17/19 06/17/19 18:41 22:00 23:23 WBC RBC Hgb Hct MCV MCH MCHC RDW Plt Count Lymph % (Auto) [place] % (Auto) Eos % (Auto) Lymph # [place] # Eos # Seg Neutrophils % Seg Neuts % (Manual) Lymphocytes % (Manual) Monocytes % (Manual) Eosinophils % (Manual) Nucleated RBC % Seg Neutrophils # Seg Neutrophils # Man Lymphocytes # (Manual) Monocytes # (Manual) Eosinophils # (Manual) PT INR APTT Fibrinogen POC ABG pH ABG pH POC ABG pCO2 POC ABG pO2 ABG pO2 ABG HCO3 ABG O2 Saturation ABG Base Excess ABG Hemoglobin Oxyhemoglobin Sodium Potassium Chloride Carbon Dioxide BUN Creatinine Glucose POC Glucose 198 H 166 H 171 H Uric Acid Calcium Phosphorus Magnesium Iron TIBC AST ALT Total Creatine Kinase CK-MB (CK-2) Troponin T NT-Pro-B Natriuret Pep Total Protein Albumin Triglycerides HDL Cholesterol Folate Urine WBC (Auto) Urine Creatinine Urine Total Protein Vancomycin Trough 06/17/19 06/18/19 06/18/19 Unknown 03:50 04:25 WBC RBC Hgb Hct MCV MCH MCHC RDW Plt Count Lymph % (Auto) [place] % (Auto) Eos % (Auto) Lymph # [place] # Eos # Seg Neutrophils % Seg Neuts % (Manual) Lymphocytes % (Manual) Monocytes % (Manual) Eosinophils % (Manual) Nucleated RBC % Seg Neutrophils # Seg Neutrophils # Man Lymphocytes # (Manual) Monocytes # (Manual) Eosinophils # (Manual) PT INR APTT Fibrinogen POC ABG pH ABG pH 7.564 H 7.499 H POC ABG pCO2 POC ABG pO2 ABG pO2 238.6 H 130.8 H ABG HCO3 33.6 H 32.5 H ABG O2 Saturation 99.4 H ABG Base Excess 10.6 H 8.5 H ABG Hemoglobin 7.9 L 8.8 L Oxyhemoglobin Sodium 151 H Potassium 3.4 L Chloride Carbon Dioxide BUN 66 H Creatinine Glucose 189 H POC Glucose Uric Acid Calcium Phosphorus Magnesium Iron TIBC AST ALT Total Creatine Kinase CK-MB (CK-2) Troponin T NT-Pro-B Natriuret Pep Total Protein Albumin Triglycerides HDL Cholesterol Folate Urine WBC (Auto) Urine Creatinine Urine Total Protein Vancomycin Trough 06/18/19 06/18/19 06/18/19 05:25 05:27 11:50 WBC RBC 2.61 L Hgb 7.4 L Hct 22.9 L MCV MCH MCHC RDW 19.9 H Plt Count 81 L Lymph % (Auto) 12.9 L [place] % (Auto) 7.7 H Eos % (Auto) Lymph # 1.1 L [place] # Eos # Seg Neutrophils % 77.4 H Seg Neuts % (Manual) Lymphocytes % (Manual) Monocytes % (Manual) Eosinophils % (Manual) Nucleated RBC % Seg Neutrophils # Seg Neutrophils # Man Lymphocytes # (Manual) Monocytes # (Manual) Eosinophils # (Manual) PT INR APTT Fibrinogen POC ABG pH ABG pH POC ABG pCO2 POC ABG pO2 ABG pO2 ABG HCO3 ABG O2 Saturation ABG Base Excess ABG Hemoglobin Oxyhemoglobin Sodium Potassium Chloride Carbon Dioxide BUN Creatinine Glucose POC Glucose 186 H 263 H Uric Acid Calcium Phosphorus Magnesium Iron TIBC AST ALT Total Creatine Kinase CK-MB (CK-2) Troponin T NT-Pro-B Natriuret Pep Total Protein Albumin Triglycerides HDL Cholesterol Folate Urine WBC (Auto) Urine Creatinine Urine Total Protein Vancomycin Trough 06/18/19 06/18/19 06/18/19 18:35 21:31 23:21 WBC RBC Hgb Hct MCV MCH MCHC RDW Plt Count Lymph % (Auto) [place] % (Auto) Eos % (Auto) Lymph # [place] # Eos # Seg Neutrophils % Seg Neuts % (Manual) Lymphocytes % (Manual) Monocytes % (Manual) Eosinophils % (Manual) Nucleated RBC % Seg Neutrophils # Seg Neutrophils # Man Lymphocytes # (Manual) Monocytes # (Manual) Eosinophils # (Manual) PT INR APTT Fibrinogen POC ABG pH ABG pH POC ABG pCO2 POC ABG pO2 ABG pO2 ABG HCO3 ABG O2 Saturation ABG Base Excess ABG Hemoglobin Oxyhemoglobin Sodium Potassium Chloride Carbon Dioxide BUN Creatinine Glucose POC Glucose 154 H 186 H 202 H Uric Acid Calcium Phosphorus Magnesium Iron TIBC AST ALT Total Creatine Kinase CK-MB (CK-2) Troponin T NT-Pro-B Natriuret Pep Total Protein Albumin Triglycerides HDL Cholesterol Folate Urine WBC (Auto) Urine Creatinine Urine Total Protein Vancomycin Trough 06/19/19 06/19/19 06/19/19 03:18 04:30 04:30 WBC RBC 2.65 L Hgb 7.5 L Hct 23.1 L MCV MCH MCHC RDW 19.4 H Plt Count 74 L Lymph % (Auto) 8.8 L [place] % (Auto) 9.4 H Eos % (Auto) 4.7 H Lymph # 0.6 L [place] # Eos # Seg Neutrophils % 76.6 H Seg Neuts % (Manual) Lymphocytes % (Manual) Monocytes % (Manual) Eosinophils % (Manual) Nucleated RBC % Seg Neutrophils # Seg Neutrophils # Man Lymphocytes # (Manual) Monocytes # (Manual) Eosinophils # (Manual) PT INR APTT Fibrinogen POC ABG pH ABG pH 7.452 H POC ABG pCO2 POC ABG pO2 ABG pO2 105.5 H ABG HCO3 32.3 H ABG O2 Saturation ABG Base Excess 7.6 H ABG Hemoglobin 6.9 L Oxyhemoglobin Sodium 150 H Potassium 3.3 L Chloride Carbon Dioxide 31 H BUN 56 H Creatinine Glucose 197 H POC Glucose Uric Acid Calcium Phosphorus Magnesium Iron TIBC AST ALT Total Creatine Kinase CK-MB (CK-2) Troponin T NT-Pro-B Natriuret Pep Total Protein Albumin Triglycerides 210 H HDL Cholesterol Folate Urine WBC (Auto) Urine Creatinine Urine Total Protein Vancomycin Trough 06/19/19 06/19/19 06/19/19 05:24 12:18 18:55 WBC RBC Hgb Hct MCV MCH MCHC RDW Plt Count Lymph % (Auto) [place] % (Auto) Eos % (Auto) Lymph # [place] # Eos # Seg Neutrophils % Seg Neuts % (Manual) Lymphocytes % (Manual) Monocytes % (Manual) Eosinophils % (Manual) Nucleated RBC % Seg Neutrophils # Seg Neutrophils # Man Lymphocytes # (Manual) Monocytes # (Manual) Eosinophils # (Manual) PT INR APTT Fibrinogen POC ABG pH ABG pH POC ABG pCO2 POC ABG pO2 ABG pO2 ABG HCO3 ABG O2 Saturation ABG Base Excess ABG Hemoglobin Oxyhemoglobin Sodium Potassium Chloride Carbon Dioxide BUN Creatinine Glucose POC Glucose 176 H 260 H 192 H Uric Acid Calcium Phosphorus Magnesium Iron TIBC AST ALT Total Creatine Kinase CK-MB (CK-2) Troponin T NT-Pro-B Natriuret Pep Total Protein Albumin Triglycerides HDL Cholesterol Folate Urine WBC (Auto) Urine Creatinine Urine Total Protein Vancomycin Trough 06/19/19 06/19/19 06/20/19 22:57 23:46 04:40 WBC RBC 2.79 L Hgb 7.9 L Hct 24.3 L MCV MCH MCHC RDW 19.6 H Plt Count 92 L Lymph % (Auto) 9.2 L [place] % (Auto) 12.0 H Eos % (Auto) 5.2 H Lymph # 0.9 L [place] # 1.2 H Eos # 0.5 H Seg Neutrophils % 73.3 H Seg Neuts % (Manual) Lymphocytes % (Manual) Monocytes % (Manual) Eosinophils % (Manual) Nucleated RBC % Seg Neutrophils # Seg Neutrophils # Man Lymphocytes # (Manual) Monocytes # (Manual) Eosinophils # (Manual) PT INR APTT Fibrinogen POC ABG pH ABG pH POC ABG pCO2 POC ABG pO2 ABG pO2 ABG HCO3 ABG O2 Saturation ABG Base Excess ABG Hemoglobin Oxyhemoglobin Sodium Potassium Chloride Carbon Dioxide BUN Creatinine Glucose POC Glucose 145 H 216 H Uric Acid Calcium Phosphorus Magnesium Iron TIBC AST ALT Total Creatine Kinase CK-MB (CK-2) Troponin T NT-Pro-B Natriuret Pep Total Protein Albumin Triglycerides HDL Cholesterol Folate Urine WBC (Auto) Urine Creatinine Urine Total Protein Vancomycin Trough 06/20/19 06/20/19 06/20/19 04:40 05:40 05:54 WBC RBC Hgb Hct MCV MCH MCHC RDW Plt Count Lymph % (Auto) [place] % (Auto) Eos % (Auto) Lymph # [place] # Eos # Seg Neutrophils % Seg Neuts % (Manual) Lymphocytes % (Manual) Monocytes % (Manual) Eosinophils % (Manual) Nucleated RBC % Seg Neutrophils # Seg Neutrophils # Man Lymphocytes # (Manual) Monocytes # (Manual) Eosinophils # (Manual) PT INR APTT Fibrinogen POC ABG pH ABG pH 7.455 H POC ABG pCO2 POC ABG pO2 ABG pO2 60.9 L ABG HCO3 30.3 H ABG O2 Saturation 92.3 L ABG Base Excess 5.8 H ABG Hemoglobin 8.2 L Oxyhemoglobin 90.1 L Sodium Potassium 3.5 L Chloride Carbon Dioxide BUN 59 H Creatinine Glucose 200 H POC Glucose 190 H Uric Acid Calcium Phosphorus Magnesium 1.60 L Iron TIBC AST ALT Total Creatine Kinase CK-MB (CK-2) Troponin T NT-Pro-B Natriuret Pep Total Protein Albumin Triglycerides HDL Cholesterol Folate Urine WBC (Auto) Urine Creatinine Urine Total Protein Vancomycin Trough 06/20/19 06/20/19 06/20/19 09:12 09:12 12:24 WBC RBC Hgb Hct MCV MCH MCHC RDW Plt Count Lymph % (Auto) [place] % (Auto) Eos % (Auto) Lymph # [place] # Eos # Seg Neutrophils % Seg Neuts % (Manual) Lymphocytes % (Manual) Monocytes % (Manual) Eosinophils % (Manual) Nucleated RBC % Seg Neutrophils # Seg Neutrophils # Man Lymphocytes # (Manual) Monocytes # (Manual) Eosinophils # (Manual) PT INR APTT Fibrinogen POC ABG pH ABG pH POC ABG pCO2 POC ABG pO2 ABG pO2 ABG HCO3 ABG O2 Saturation ABG Base Excess ABG Hemoglobin Oxyhemoglobin Sodium Potassium Chloride Carbon Dioxide BUN Creatinine Glucose POC Glucose 225 H Uric Acid Calcium Phosphorus Magnesium Iron 45 L TIBC 110 L AST ALT Total Creatine Kinase CK-MB (CK-2) Troponin T NT-Pro-B Natriuret Pep Total Protein Albumin Triglycerides HDL Cholesterol Folate 7.01 L Urine WBC (Auto) Urine Creatinine Urine Total Protein Vancomycin Trough 06/20/19 06/20/19 06/20/19 17:42 21:55 23:24 WBC RBC Hgb Hct MCV MCH MCHC RDW Plt Count Lymph % (Auto) [place] % (Auto) Eos % (Auto) Lymph # [place] # Eos # Seg Neutrophils % Seg Neuts % (Manual) Lymphocytes % (Manual) Monocytes % (Manual) Eosinophils % (Manual) Nucleated RBC % Seg Neutrophils # Seg Neutrophils # Man Lymphocytes # (Manual) Monocytes # (Manual) Eosinophils # (Manual) PT INR APTT Fibrinogen POC ABG pH ABG pH POC ABG pCO2 POC ABG pO2 ABG pO2 ABG HCO3 ABG O2 Saturation ABG Base Excess ABG Hemoglobin Oxyhemoglobin Sodium Potassium Chloride Carbon Dioxide BUN Creatinine Glucose POC Glucose 255 H 218 H 215 H Uric Acid Calcium Phosphorus Magnesium Iron TIBC AST ALT Total Creatine Kinase CK-MB (CK-2) Troponin T NT-Pro-B Natriuret Pep Total Protein Albumin Triglycerides HDL Cholesterol Folate Urine WBC (Auto) Urine Creatinine Urine Total Protein Vancomycin Trough 06/21/19 06/21/19 06/21/19 03:32 03:40 05:20 WBC 12.8 H RBC 3.03 L Hgb 8.5 L Hct 26.2 L MCV MCH MCHC RDW 19.4 H Plt Count 131 L Lymph % (Auto) [place] % (Auto) Eos % (Auto) Lymph # [place] # Eos # Seg Neutrophils % Seg Neuts % (Manual) 78.0 H Lymphocytes % (Manual) 5.0 L Monocytes % (Manual) 11.0 H Eosinophils % (Manual) Nucleated RBC % Seg Neutrophils # Seg Neutrophils # Man 10.0 H Lymphocytes # (Manual) 0.6 L Monocytes # (Manual) 1.4 H Eosinophils # (Manual) 0.5 H PT INR APTT Fibrinogen POC ABG pH ABG pH 7.476 H POC ABG pCO2 POC ABG pO2 ABG pO2 162.0 H ABG HCO3 26.8 H ABG O2 Saturation 99.1 H ABG Base Excess 3.1 H ABG Hemoglobin 8.6 L Oxyhemoglobin Sodium Potassium Chloride Carbon Dioxide BUN Creatinine Glucose POC Glucose 202 H Uric Acid Calcium Phosphorus Magnesium Iron TIBC AST ALT Total Creatine Kinase CK-MB (CK-2) Troponin T NT-Pro-B Natriuret Pep Total Protein Albumin Triglycerides HDL Cholesterol Folate Urine WBC (Auto) Urine Creatinine Urine Total Protein Vancomycin Trough 06/21/19 06/21/19 06/21/19 05:20 12:30 18:18 WBC RBC Hgb Hct MCV MCH MCHC RDW Plt Count Lymph % (Auto) [place] % (Auto) Eos % (Auto) Lymph # [place] # Eos # Seg Neutrophils % Seg Neuts % (Manual) Lymphocytes % (Manual) Monocytes % (Manual) Eosinophils % (Manual) Nucleated RBC % Seg Neutrophils # Seg Neutrophils # Man Lymphocytes # (Manual) Monocytes # (Manual) Eosinophils # (Manual) PT INR APTT Fibrinogen POC ABG pH ABG pH POC ABG pCO2 POC ABG pO2 ABG pO2 ABG HCO3 ABG O2 Saturation ABG Base Excess ABG Hemoglobin Oxyhemoglobin Sodium Potassium Chloride 97.7 L Carbon Dioxide BUN 69 H Creatinine Glucose 239 H POC Glucose 176 H 187 H Uric Acid Calcium Phosphorus Magnesium 2.40 H Iron TIBC AST ALT Total Creatine Kinase CK-MB (CK-2) Troponin T NT-Pro-B Natriuret Pep Total Protein Albumin Triglycerides HDL Cholesterol Folate Urine WBC (Auto) Urine Creatinine Urine Total Protein Vancomycin Trough 06/22/19 06/22/19 06/22/19 04:11 05:30 05:30 WBC 12.6 H RBC 3.10 L Hgb 8.7 L Hct 27.0 L MCV MCH MCHC RDW 19.8 H Plt Count Lymph % (Auto) [place] % (Auto) Eos % (Auto) Lymph # [place] # Eos # Seg Neutrophils % Seg Neuts % (Manual) Lymphocytes % (Manual) Monocytes % (Manual) 10.0 H Eosinophils % (Manual) Nucleated RBC % Seg Neutrophils # Seg Neutrophils # Man 8.7 H Lymphocytes # (Manual) Monocytes # (Manual) 1.3 H Eosinophils # (Manual) PT INR APTT Fibrinogen POC ABG pH ABG pH POC ABG pCO2 POC ABG pO2 ABG pO2 ABG HCO3 27.7 H ABG O2 Saturation ABG Base Excess 3.3 H ABG Hemoglobin 8.5 L Oxyhemoglobin 94.9 L Sodium Potassium Chloride Carbon Dioxide BUN 66 H Creatinine Glucose 103 H POC Glucose Uric Acid Calcium Phosphorus Magnesium Iron TIBC AST ALT Total Creatine Kinase CK-MB (CK-2) Troponin T NT-Pro-B Natriuret Pep Total Protein Albumin Triglycerides HDL Cholesterol Folate Urine WBC (Auto) Urine Creatinine Urine Total Protein Vancomycin Trough 06/22/19 06/22/19 06/23/19 17:43 23:25 02:00 WBC RBC Hgb Hct MCV MCH MCHC RDW Plt Count Lymph % (Auto) [place] % (Auto) Eos % (Auto) Lymph # [place] # Eos # Seg Neutrophils % Seg Neuts % (Manual) Lymphocytes % (Manual) Monocytes % (Manual) Eosinophils % (Manual) Nucleated RBC % Seg Neutrophils # Seg Neutrophils # Man Lymphocytes # (Manual) Monocytes # (Manual) Eosinophils # (Manual) PT INR APTT Fibrinogen POC ABG pH ABG pH 7.469 H POC ABG pCO2 POC ABG pO2 ABG pO2 58.7 L ABG HCO3 28.0 H ABG O2 Saturation 94.6 L ABG Base Excess 4.0 H ABG Hemoglobin 7.1 L Oxyhemoglobin 92.2 L Sodium Potassium Chloride Carbon Dioxide BUN Creatinine Glucose POC Glucose 143 H 106 H Uric Acid Calcium Phosphorus Magnesium Iron TIBC AST ALT Total Creatine Kinase CK-MB (CK-2) Troponin T NT-Pro-B Natriuret Pep Total Protein Albumin Triglycerides HDL Cholesterol Folate Urine WBC (Auto) Urine Creatinine Urine Total Protein Vancomycin Trough 06/23/19 06/23/19 06/23/19 05:24 05:24 11:43 WBC 12.6 H RBC 2.96 L Hgb 8.3 L Hct 25.5 L MCV MCH MCHC RDW 20.2 H Plt Count Lymph % (Auto) [place] % (Auto) Eos % (Auto) Lymph # [place] # Eos # Seg Neutrophils % Seg Neuts % (Manual) Lymphocytes % (Manual) 12.0 L Monocytes % (Manual) 11.0 H Eosinophils % (Manual) 6.0 H Nucleated RBC % Seg Neutrophils # Seg Neutrophils # Man 8.8 H Lymphocytes # (Manual) Monocytes # (Manual) 1.4 H Eosinophils # (Manual) 0.8 H PT INR APTT Fibrinogen POC ABG pH ABG pH POC ABG pCO2 POC ABG pO2 ABG pO2 ABG HCO3 ABG O2 Saturation ABG Base Excess ABG Hemoglobin Oxyhemoglobin Sodium 146 H Potassium 3.5 L Chloride Carbon Dioxide BUN 48 H Creatinine Glucose 123 H POC Glucose 120 H Uric Acid Calcium Phosphorus Magnesium Iron TIBC AST ALT Total Creatine Kinase CK-MB (CK-2) Troponin T NT-Pro-B Natriuret Pep Total Protein Albumin Triglycerides HDL Cholesterol Folate Urine WBC (Auto) Urine Creatinine Urine Total Protein Vancomycin Trough 06/23/19 06/24/19 06/24/19 17:39 06:53 06:53 WBC 12.3 H RBC 2.87 L Hgb 8.0 L Hct 24.9 L MCV MCH MCHC RDW 20.5 H Plt Count Lymph % (Auto) [place] % (Auto) 8.8 H Eos % (Auto) 4.4 H Lymph # [place] # 1.1 H Eos # 0.5 H Seg Neutrophils % Seg Neuts % (Manual) Lymphocytes % (Manual) Monocytes % (Manual) Eosinophils % (Manual) Nucleated RBC % Seg Neutrophils # Seg Neutrophils # Man Lymphocytes # (Manual) Monocytes # (Manual) Eosinophils # (Manual) PT INR APTT Fibrinogen POC ABG pH ABG pH POC ABG pCO2 POC ABG pO2 ABG pO2 ABG HCO3 ABG O2 Saturation ABG Base Excess ABG Hemoglobin Oxyhemoglobin Sodium Potassium Chloride 107.1 H Carbon Dioxide 21 L BUN 29 H Creatinine 0.6 L Glucose 117 H POC Glucose 111 H Uric Acid Calcium Phosphorus Magnesium 1.60 L Iron TIBC AST ALT Total Creatine Kinase CK-MB (CK-2) Troponin T NT-Pro-B Natriuret Pep Total Protein Albumin Triglycerides HDL Cholesterol Folate Urine WBC (Auto) Urine Creatinine Urine Total Protein Vancomycin Trough
--- NOTE | 2019-06-24 13:02 | Progress Note ---
Assessment and Plan Assessment and plan: 34-year-old man with morbid obesity was brought to the hospital for shortness of breath and insomnia. He was found to have severe hypoxia and bradycardia who then became pulseless, he was cyanotic and he was intubated after receiving CPR with 2 rounds of epinephrine. Patient was intubated, extubated and reintubated, unable to wean vent dependent, underwent trach and PEG on 06/22/2019 --Persistent fevers; leukocytosis New set of cultures, blood urine and sputum Consider empiric antibiotics, reconsult ID Discussed with Dr. Wilks, recommend Levaquin and Zyvox --Acute respiratory failure; vent dependent/status post trach and PEG Continue ventilatory support, trach care, nebulizers Pulmonary critical following --Febrile illness; Patient is being monitored off antibiotics Follow cultures, supportive care. --Obesity hypoventilation syndrome Continue ventilatory support, nebulizers Pulmonary critical following --Status post cardiac arrest mild anoxic brain injury patient's mentation is improved ., EEG was negative for seizures and neurology consult appreciated. --Severe malnutrition Dysphasia; dw with his mom, she is agreeable to PEG tube, GS consulted Dietitian input appreciated, continue tube feeds --Anemia of chronic disease : Closely monitor H&H and transfuse as needed. 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 Patient is on Eliquis --Acute kidney injury due to ATN : Requiring dialysis Resolved, nephrology following. --Hypernatremia: Trending down, closely monitor --Hypokalemia hypomagnesemia: Replace as needed Per protocol monitor electrolytes --Morbid obesity; will need weight loss program upon discharge --DVT prophylaxis; scd for now Plan of care discussed with the patient and his nurse I also discussed with ID Dr. Wilks the treatment plan Discharge planning LTAC placement Multiple social and financial/insurance issues CCT 33 minutes History Interval history: Patient seen and examined medical records reviewed No new overnight events reported by the nursing staff Medications, labs, nursing notes reviewed. Status post tracheostomy on vent Patient is alert and awake Febrile T-max 101F Hospitalist Physical - Constitutional Vitals: Temp Pulse Resp BP Pulse Ox 101.0 F H 99 H 33 H 171/97 93 06/24/19 11:57 06/24/19 12:15 06/24/19 12:15 06/24/19 12:15 06/24/19 12:15 General appearance: Present: no acute distress, obese (Morbidly obese), other (Tracheostomy on vent) - EENT Eyes: Present: PERRL, EOM intact - Neck Neck: Present: supple, other (Tracheostomy in place) - Respiratory Respiratory effort: normal Respiratory: bilateral: diminished, rhonchi, negative: rales, wheezing - Cardiovascular Rhythm: regular Heart Sounds: Present: S1 & S2 - Extremities Extremities: no ischemia, No edema - Abdominal General gastrointestinal: soft, non-tender, non-distended, normal bowel sounds - Integumentary Integumentary: Present: clear, warm - Psychiatric Psychiatric: appropriate mood/affect, cooperative - Neurologic Neurologic: moves all extremities Results - Labs CBC & Chem 7: 06/24/19 06:53 06/24/19 06:53 Labs: Laboratory Last Values WBC 12.3 K/mm3 (4.5-11.0) H 06/24/19 06:53 RBC 2.87 M/mm3 (3.65-5.03) L 06/24/19 06:53 Hgb 8.0 gm/dl (11.8-15.2) L 06/24/19 06:53 Hct 24.9 % (35.5-45.6) L 06/24/19 06:53 MCV 87 fl (84-94) 06/24/19 06:53 MCH 28 pg (28-32) 06/24/19 06:53 MCHC 32 % (32-34) 06/24/19 06:53 RDW 20.5 % (13.2-15.2) H 06/24/19 06:53 Plt Count 149 K/mm3 (140-440) 06/24/19 06:53 Lymph % (Auto) 23.8 % (13.4-35.0) 06/24/19 06:53 [place] % (Auto) 8.8 % (0.0-7.3) H 06/24/19 06:53 Eos % (Auto) 4.4 % (0.0-4.3) H 06/24/19 06:53 Baso % (Auto) 0.9 % (0.0-1.8) 06/24/19 06:53 Lymph # 2.9 K/mm3 (1.2-5.4) 06/24/19 06:53 [place] # 1.1 K/mm3 (0.0-0.8) H 06/24/19 06:53 Eos # 0.5 K/mm3 (0.0-0.4) H 06/24/19 06:53 Baso # 0.1 K/mm3 (0.0-0.1) 06/24/19 06:53 Add Manual Diff Complete 06/23/19 05:24 Total Counted 100 06/23/19 05:24 Seg Neutrophils % 62.1 % (40.0-70.0) 06/24/19 06:53 Seg Neuts % (Manual) 70.0 % (40.0-70.0) 06/23/19 05:24 Band Neutrophils % 1.0 % 06/23/19 05:24 Lymphocytes % (Manual) 12.0 % (13.4-35.0) L 06/23/19 05:24 Reactive Lymphs % (Man) 0 % 06/23/19 05:24 Monocytes % (Manual) 11.0 % (0.0-7.3) H 06/23/19 05:24 Eosinophils % (Manual) 6.0 % (0.0-4.3) H 06/23/19 05:24 Basophils % (Manual) 0 % (0.0-1.8) 06/23/19 05:24 Metamyelocytes % 0 % 06/23/19 05:24 Myelocytes % 0 % 06/23/19 05:24 Promyelocytes % 0 % 06/23/19 05:24 Blast Cells % 0 % 06/23/19 05:24 Nucleated RBC % Not Reportable 06/23/19 05:24 Seg Neutrophils # 7.7 K/mm3 (1.8-7.7) 06/24/19 06:53 Seg Neutrophils # Man 8.8 K/mm3 (1.8-7.7) H 06/23/19 05:24 Band Neutrophils # 0.1 K/mm3 06/23/19 05:24 Lymphocytes # (Manual) 1.5 K/mm3 (1.2-5.4) 06/23/19 05:24 Abs React Lymphs (Man) 0.0 K/mm3 06/23/19 05:24 Monocytes # (Manual) 1.4 K/mm3 (0.0-0.8) H 06/23/19 05:24 Eosinophils # (Manual) 0.8 K/mm3 (0.0-0.4) H 06/23/19 05:24 Basophils # (Manual) 0.0 K/mm3 (0.0-0.1) 06/23/19 05:24 Metamyelocytes # 0.0 K/mm3 06/23/19 05:24 Myelocytes # 0.0 K/mm3 06/23/19 05:24 Promyelocytes # 0.0 K/mm3 06/23/19 05:24 Blast Cells # 0.0 K/mm3 06/23/19 05:24 WBC Morphology Not Reportable 06/23/19 05:24 Hypersegmented Neuts Not Reportable 06/23/19 05:24 Hyposegmented Neuts Not Reportable 06/23/19 05:24 Hypogranular Neuts Not Reportable 06/23/19 05:24 Smudge Cells Not Reportable 06/23/19 05:24 Toxic Granulation Not Reportable 06/23/19 05:24 Toxic Vacuolation Not Reportable 06/23/19 05:24 Dohle Bodies Not Reportable 06/23/19 05:24 Pelger-Huet Anomaly Not Reportable 06/23/19 05:24 Reena Rods Not Reportable 06/23/19 05:24 Platelet Estimate Consistent w auto 06/23/19 05:24 Clumped Platelets Not Reportable 06/23/19 05:24 Plt Clumps, EDTA Not Reportable 06/23/19 05:24 Large Platelets Not Reportable 06/23/19 05:24 Giant Platelets Not Reportable 06/23/19 05:24 Platelet Satelliting Not Reportable 06/23/19 05:24 Plt Morphology Comment Not Reportable 06/23/19 05:24 RBC Morphology Not Reportable 06/23/19 05:24 Dimorphic RBCs Not Reportable 06/23/19 05:24 Polychromasia Not Reportable 06/23/19 05:24 Hypochromasia Not Reportable 06/23/19 05:24 Poikilocytosis Not Reportable 06/23/19 05:24 Anisocytosis 1+ 06/23/19 05:24 Microcytosis Not Reportable 06/23/19 05:24 Macrocytosis Not Reportable 06/23/19 05:24 Spherocytes Not Reportable 06/23/19 05:24 Pappenheimer Bodies Not Reportable 06/23/19 05:24 Sickle Cells Not Reportable 06/23/19 05:24 Target Cells Not Reportable 06/23/19 05:24 Tear Drop Cells Rare 06/23/19 05:24 Ovalocytes Not Reportable 06/23/19 05:24 Stomatocytes 3+ 06/23/19 05:24 Helmet Cells Not Reportable 06/23/19 05:24 [place]-Medicine Bow Bodies Not Reportable 06/23/19 05:24 [place] Rings Not Reportable 06/23/19 05:24 [place] Cells Not Reportable 06/23/19 05:24 Bite Cells Not Reportable 06/23/19 05:24 Crenated Cell Not Reportable 06/23/19 05:24 Elliptocytes Not Reportable 06/23/19 05:24 Acanthocytes (Spur) Not Reportable 06/23/19 05:24 Rouleaux Not Reportable 06/23/19 05:24 Hemoglobin C Crystals Not Reportable 06/23/19 05:24 Schistocytes Not Reportable 06/23/19 05:24 Malaria parasites Not Reportable 06/23/19 05:24 Syed Bodies Not Reportable 06/23/19 05:24 Hem Pathologist Commnt No 06/23/19 05:24 PT 15.4 Sec. (12.2-14.9) H 05/01/19 Unknown INR 1.23 (0.87-1.13) H 05/01/19 Unknown APTT 22.7 Sec. (24.2-36.6) L 05/01/19 Unknown Fibrinogen 194 mg/dl (211-480) L 06/17/19 12:45 Heparin Anti-Xa, Unfract Negative (Negative) 06/17/19 12:45 POC ABG pH 7.462 (7.35-7.45) H 06/05/19 03:52 ABG pH 7.469 pH Units (7.350-7.450) H 06/23/19 02:00 POC ABG pCO2 39.8 (35-45) 06/05/19 03:52 ABG pCO2 39.4 mm Hg 06/23/19 02:00 POC ABG pO2 86 (80-105) 06/05/19 03:52 ABG pO2 58.7 mm Hg (80.0-90.0) L 06/23/19 02:00 POC ABG HCO3 28.4 (22-26 mml/L) 06/05/19 03:52 ABG HCO3 28.0 mmol/L (20.0-26.0) H 06/23/19 02:00 POC ABG Total CO2 30 (23-27mmol/L) 06/05/19 03:52 POC ABG O2 Sat 97 06/05/19 03:52 ABG O2 Saturation 94.6 % (95.0-99.0) L 06/23/19 02:00 ABG O2 Content 9.2 (0.0-44) 06/23/19 02:00 POC ABG Base Excess 5 ((-2) - (+3)mmol/L) 06/05/19 03:52 ABG Base Excess 4.0 mmol/L (-2.0-3.0) H 06/23/19 02:00 ABG Hemoglobin 7.1 gm/dl (14.0-18.0) L 06/23/19 02:00 ABG Carboxyhemoglobin 2.0 % (0.0-5.0) 06/23/19 02:00 ABG Methemoglobin 0.5 % (0.0-1.5) 06/23/19 02:00 Oxyhemoglobin 92.2 % (95.0-99.0) L 06/23/19 02:00 FiO2 30 % 06/23/19 02:00 Sodium 144 mmol/L (137-145) 06/24/19 06:53 Potassium 3.7 mmol/L (3.6-5.0) 06/24/19 06:53 Chloride 107.1 mmol/L (98-107) H 06/24/19 06:53 Carbon Dioxide 21 mmol/L (22-30) L 06/24/19 06:53 Anion Gap 20 mmol/L 06/24/19 06:53 BUN 29 mg/dL (9-20) H 06/24/19 06:53 Creatinine 0.6 mg/dL (0.8-1.5) L 06/24/19 06:53 Estimated GFR > 60 ml/min 06/24/19 06:53 BUN/Creatinine Ratio 48 % 06/24/19 06:53 Glucose 117 mg/dL (75-100) H 06/24/19 06:53 POC Glucose 99 (70-105) 06/24/19 05:27 Osmolality 327 Mosm/kg 05/07/19 13:45 Uric Acid 18.0 mg/dL (3.5-7.6) H 05/07/19 13:45 Calcium 9.0 mg/dL (8.4-10.2) 06/24/19 06:53 Phosphorus 3.70 mg/dL (2.5-4.5) 06/10/19 05:45 Magnesium 1.60 mg/dL (1.7-2.3) L 06/24/19 06:53 Iron 45 ug/dL (49-181) L 06/20/19 09:12 TIBC 110 mcg/dL (250-450) L 06/20/19 09:12 Ferritin 315.2 ng/mL (13.0-400.0) 06/20/19 09:12 Total Bilirubin 0.50 mg/dL (0.1-1.2) 06/08/19 04:20 AST 23 units/L (5-40) 06/08/19 04:20 ALT 66 units/L (7-56) H 06/08/19 04:20 Alkaline Phosphatase 59 units/L (35-129) 06/08/19 04:20 Total Creatine Kinase 131 units/L (55-170) 05/02/19 04:41 CK-MB (CK-2) 5.2 ng/mL (0.0-4.0) H 05/02/19 04:41 CK-MB (CK-2) Rel Index 3.9 (0-4) 05/02/19 04:41 Troponin T 0.067 ng/mL (0.00-0.029) H D 05/02/19 04:41 NT-Pro-B Natriuret Pep 6831 pg/mL (0-450) H 05/01/19 Unknown Total Protein 5.5 g/dL (6.3-8.2) L 06/08/19 04:20 Albumin 2.9 g/dL (3.9-5) L 06/08/19 04:20 Albumin/Globulin Ratio 1.1 % 06/08/19 04:20 Triglycerides 210 mg/dL (2-149) H 06/19/19 04:30 Cholesterol 173 mg/dL (50-199) 05/02/19 00:06 LDL Cholesterol Direct 126 mg/dL (50-130) 05/02/19 00:06 HDL Cholesterol 18 mg/dL (40-59) L 05/02/19 00:06 Cholesterol/HDL Ratio 9.61 % 05/02/19 00:06 Serotonin Release Assay See scanned results 06/17/19 12:45 Vitamin B12 353.0 pg/mL (211-911) 06/20/19 09:12 Folate 7.01 ng/mL (7.3-26.0) L 06/20/19 09:12 Procalcitonin 0.05 ng/mL (<0.15) 06/17/19 12:45 Urine Color Yellow (Yellow) 06/17/19 12:45 Urine Turbidity Slightly-cloudy (Clear) 06/17/19 12:45 Urine pH 5.0 (5.0-7.0) 06/17/19 12:45 Ur Specific [place] 1.013 (1.003-1.030) 06/17/19 12:45 Urine Protein <15 mg/dl mg/dL (Negative) 06/17/19 12:45 Urine Glucose (UA) Neg mg/dL (Negative) 06/17/19 12:45 Urine Ketones Neg mg/dL (Negative) 06/17/19 12:45 Urine Blood Sm (Negative) 06/17/19 12:45 Urine Nitrite Neg (Negative) 06/17/19 12:45 Urine Bilirubin Neg (Negative) 06/17/19 12:45 Urine Urobilinogen < 2.0 mg/dL (<2.0) 06/17/19 12:45 Ur Leukocyte Esterase Neg (Negative) 06/17/19 12:45 Urine WBC (Auto) 2.0 /HPF (0.0-6.0) 06/17/19 12:45 Urine RBC (Auto) 2.0 /HPF (0.0-6.0) 06/17/19 12:45 U Epithel Cells (Auto) < 1.0 /HPF (0-13.0) 06/17/19 12:45 Urine Bacteria (Auto) 1+ /HPF (Negative) 05/20/19 12:00 Uric Acid Crystals 3+ 05/03/19 10:55 Urine Mucus Few /HPF 06/17/19 12:45 Urine Yeast (Budding) 3+ /HPF 05/20/19 12:00 Urine Creatinine 292.8 mg/dL (0.1-20.0) H 05/07/19 22:40 Urine Sodium 11 mmol/L 05/07/19 22:40 Urine Total Protein 269 mg/dL (5-11.8) H 05/07/19 22:40 Vancomycin Trough 20.5 ug/mL (5.0-20.0) H 05/15/19 09:00 Random Vancomycin 11.5 ug/mL (0-40.0) 05/27/19 06:00 AMNA Screen Negative (Negative) 05/07/19 13:45 Heparin-induced Plt Ab Negative (Negative) 06/17/19 12:45 UF Heparin High Dose 13 % Release 06/17/19 12:45 YUNG UFH Low Dose 0.1 8 % Release 06/17/19 12:45 YUNG UFH Low Dose 0.5 7 % Release 06/17/19 12:45 Hepatitis A IgM Ab Non-reactive (NonReactive) 05/07/19 13:45 Hep Bs Antigen Non-reactive (Negative) 05/07/19 13:45 Hep B Core IgM Ab Non-reactive (NonReactive) 05/07/19 13:45 Hepatitis C Antibody Non-reactive (NonReactive) 05/07/19 13:45 Influenza A (Rapid) Negative (Negative) 06/17/19 11:35 Influenza B (Rapid) Negative (Negative) 06/17/19 11:35 Active Medications - Current Medications Current Medications: Generic Name Dose Route Start Last Admin Trade Name Freq PRN Reason Stop Dose Admin Acetaminophen 650 mg 06/17/19 10:00 06/24/19 09:49 Tylenol PO 650 mg Q6H PRN Administration FOR TEMP >/=100.4 Lipase/Protease/Amylase 1 each 05/14/19 15:01 Pancremannie Fletcher 10,500 Unit FEEDTUBE PRN PRN For Clogged Feeding Tube Apixaban 2.5 mg 06/23/19 22:00 06/24/19 09:51 Eliquis PO 2.5 mg Q12HR VICKEY Administration Protocol Dextrose 50 gm 05/01/19 20:24 D50w (25gm) Vial IV Q30MIN PRN Hypoglycemia Protocol Famotidine 20 mg 06/17/19 10:00 06/24/19 09:51 Pepcid PO 20 mg BID VICKEY Administration Ferrous Sulfate 308 mg 06/18/19 12:00 06/24/19 09:52 Ferrous Sulfate PO 308 mg QDAY VICKEY Administration Hydrophilic Ointment 1 applic 06/16/19 17:34 Vaseline Lip Therapy TP Q2HR PRN Dry Lips Propofol 1,000 mg in 100 mls @ 7.716 mls/hr 06/16/19 21:00 06/23/19 18:39 Diprivan 10 Mg/Ml IV 0 mcg/kg/min TITR VICKEY 0 mls/hr Titration Protocol 5 MCG/KG/MIN Fentanyl Citrate 2,000 mcg in 100 mls @ 12.86 mls/hr 06/17/19 14:00 Fentanyl Drip Premix IV TITR VICKEY Protocol 1 MCG/KG/HR Insulin Human Lispro 0 unit 06/01/19 14:00 06/24/19 12:23 Humalog SUB-Q 3 unit Q6HR VICKEY Administration Protocol Labetalol HCl 10 mg 06/11/19 22:48 06/24/19 11:54 Labetalol IV 10 mg Q4H PRN Administration BP >170/105; hold for HR <60 Methylprednisolone Sodium Succinate 20 mg 06/22/19 12:00 06/24/19 09:49 Solu-Medrol IV 20 mg Q24HR VICKEY Administration Multi-Ingred Cream/Lotion/Oil/Oint 1 applic 06/16/19 18:00 Artificial Tears Ophth Oint OU Q4HR PRN Dry Eye(s) Multivit/Ca Carb/B Cmplx/FA/Prenat 1 cap 06/23/19 10:00 06/24/19 09:51 Renal Caps PO 1 cap QDAY VICKEY Administration Potassium Chloride 40 meq 06/19/19 10:00 06/24/19 09:50 Potassium Chloride FEEDTUBE 40 meq QDAY VICKEY Administration Simple Syrup 15 ml 05/14/19 15:01 Simple Syrup FEEDTUBE PRN PRN Hypoglycemia Simple Syrup 30 ml 05/14/19 15:01 Simple Syrup FEEDTUBE PRN PRN Hypoglycemia Sodium Bicarbonate 325 mg 05/14/19 15:01 Sodium Bicarbonate FEEDTUBE PRN PRN For Clogged Feeding Tube Nutrition/Malnutrition Assess - Dietary Evaluation Nutrition/Malnutrition Findings: Nutrition Notes Start: 12/10/19 12:54 Freq: Status: Active Protocol: Document 06/23/19 11:53 MK (Rec: 06/23/19 12:13 MK [id number]) Co-Sign 06/23/19 11:53 LP Nutrition Notes Initial or Follow up Assessment Current Diagnosis Acute Kidney Injury,Sepsis, Respiratory Failure Other Pertinent Diagnosis HD Current Diet Nepro 1.8 at 50 ml/hr Labs/Tests Na 146 K 3.5 BG 123 Pertinent Medications Solu-Medrol KCl at 40 meq Height 6 ft 4 in Weight 257.2 kg [place] Body Weight (kg) 91.81 BMI 69.0 Weight Status Morbidly Obese Subjective/Other Information FU for TF tolerance. PEG and trach placed. Nepro 1.8 at 50 ml/hr initiated. Percent of energy/protein needs met: 0%/0% Burn Absent Trauma Absent GI Symptoms None Current % PO Negligible Minimum of two criteria No Fluid Accumulation Moderate to Severe (severe) #1 Nutrition Diagnosis Inadequate oral intake Diagnosis Progress(for reassessment Continues documentation) Is patient on ventilator? Yes Is Patient Ambulatory and/or Out of Bed No REE-([facility]-confined to bed) 4342.284 Kcal/Kg value to use for calculation 8 Approximate Energy Requirements Using 8 kcal/Kg Calculation Used for Recommendations Kcal/kg Additional Notes PRO needs: 73 - 91 g (0.8 - 1 g/kg IBW) Fluid needs: 1 ml/kcal Nutrition Intervention Change Diet Order: Continue TF Nutrition Support: Nepro 1.8 at 50 ml/hr Flush with 300ml q4h Kcal 2,160 Protein (gm) 97 Fluid (mL) 872 Goal #1 TF tolerance [ End ] Goal #2 Meet at least 75% kcal/PRO needs via TF Anticipated Discharge Needs: Unable to determine at this time Follow-Up By: 06/25/19 Additional Comments FU TF tolerance and Na labs
[2019-06-24] MEDS ORDERED: fentaNYL 250 MCG/5 ML INJ IV PRN (16:26)
[2019-06-24] MEDS: ACETAMINOPHEN 325 MG/10.15 ML ORAL LIQD UNIT DOSE PO SCH (16:43)
[2019-06-24] MEDS: fentaNYL 100 MCG/2 ML INJ IV PRN (16:44)
[2019-06-24] MEDS: LINEZOLID 600 MG/300 ML BAG IV SCH (22:27)
[2019-06-25 05:30] LABS: Hematocrit 26.4 % (35.5-45.6); Hemoglobin 8.3 gm/dl (11.8-15.2); Mean Corpuscular HGB Conc 31 % (32-34); Mean Corpuscular Volume 89 fl (84-94); Platelet Count 231 K/mm3 (140-440); Red Blood Count 2.98 M/mm3 (3.65-5.03)
[2019-06-25 05:43] LABS: Red Cell Distribution Width 20.1 % (13.2-15.2)
[2019-06-25 05:50] LABS: BUN/Creatinine Ratio 30; Blood Urea Nitrogen 21 mg/dL (9-20); Calcium 9.2 mg/dL (8.4-10.2); Hemolysis Index 10
[2019-06-25 06:57] LABS: Basophils % (Manual) 0 % (0.0-1.8); Total Cells Counted 100
[2019-06-25 06:58] LABS: Anisocytosis 1+; Hypochromasia 1+; Platelet Estimate Consistent w Auto
--- NOTE | 2019-06-25 09:48 | XRay Report ---
CHEST 1 VIEW / XR chest 1V ap INDICATION: fever/resp failure. COMPARISON: 06/23/2019 CXR. FINDINGS: Portable, frontal chest radiograph, 2 images, somewhat limited due to positioning with excl usion of the thoracic inlet and the right lateral lung base from the radiographic margins. Grossly st able exaggerated cardiomediastinal silhouette with partially imaged tracheostomy tube and left-sided central catheter tip about the cavoatrial junction again seen. Right hemidiaphragm approximately 7 cm higher than the left. Mild streakiness towards the lung bases, possibly bronchovascular markings wit hout significant pleural effusions or CHF. Stable bones. IMPRESSION: Limited exam, though without significant interval change and various findings, as above. Please correlate. Thank you for the opportunity to participate in this patient's care. Signer Name: Bryce Callahan Signed: 06/25/2019 9:43 AM Workstation Name: [id number]
[2019-06-25] MEDS: INSULIN LISPRO 100 UNIT/ML SUB-Q SCH ×2 (10:21→15:52)
[2019-06-25] MEDS: ACETAMINOPHEN 325 MG/10.15 ML ORAL LIQD UNIT DOSE PO SCH ×4 (10:22→22:50)
[2019-06-25] MEDS: FAMOTIDINE 20 MG TAB PO SCH ×2 (10:24→22:47)
[2019-06-25] MEDS: LINEZOLID 600 MG/300 ML BAG IV SCH ×2 (10:24→22:48)
[2019-06-25] MEDS: methylPREDNISolone Sod Succinate 40 MG/1 ML INJ IV SCH (10:24)
[2019-06-25] MEDS: fentaNYL 100 MCG/2 ML INJ IV PRN ×2 (10:25→15:53)
[2019-06-25] MEDS: POTASSIUM CHLORIDE 20 MEQ PACKET FEEDTUBE SCH (10:26)
[2019-06-25] MEDS: FOLIC ACID/VIT B COMP W-C 1 MG (RENAL CAPS) PO SCH (10:26)
[2019-06-25] MEDS: FERROUS SULFATE 308 MG (62mg Elemental Iron) / 7 ML ELIXIR PO SCH (10:26)
[2019-06-25] MEDS: APIXABAN 2.5 MG TAB PO SCH ×2 (10:26→22:47)
[2019-06-25] MEDS: hydroCHLOROthiazide 25 MG TAB PO SCH (10:30)
[2019-06-25] MEDS: amLODIPine 10 MG TAB PO SCH (10:30)
--- NOTE | 2019-06-25 10:54 | Progress Note ---
Assessment and Plan 34 y/o male with acute hypoxic, hypercapnic respiratory failure currently ventilated and sedated, now with persistent fevers and seizure and on HD 06/25/2019: Continue T-piece today as tolerated. Only rest of vent if needed. If not needed tonight then will discontinue vent from room. Spoke with IR, and they will remove Perm cath today as this could be a cause of fevers. Follow up cultures and ID recs. Will increase Free H2O to [id number]. Change steroids to 10 PO starting tomorrow morning. Added scheduled BP meds. 06/24/2019: Will attempt T-piece later today, if tolerates, then will continue trial indefinitely. PT/OT will need to start seeing him again. Will drop steroids to 10 daily (PO) starting Friday morning. 06/23/2019: PSV all day today and tomorrow. Will start T-piece either tomorrow or Friday. Tolerating Feeds 06/22/2019: Patient scheduled for OR today. Plan as outlined in Dr. Saez's note from yesterday. Discussed with patient again this am. Really appreciate surgery help with this and the promptness of procedure. Will follow up post-op later today. 06/21/2019: Unfortunately re-intubated last week. Will need Trach and Peg, but I doubt peg will happen secondary to his size. Will discuss with surgery and maybe they can just put in a number 6 XLT from the start. I think he will get off the vent relatively quickly and can start to eat. This trach will be indefinite. I have explained this to him. I have not seen his family at the bedside during this admission but Im told they come in the evenings. 06/12/2019: Started HCTZ 50 daily and Labetalol 100 TID. Will increase Labetalol to 200 TID. Already on Clonidine patch. Continue Minoxidil. Will start to wean drip. PT/OT. Feeds through NG now that this is in place. Will need speech re-evaluation. Will order NT suctioning at least [id number] for the next 24 hours. 06/11/2019: Bipap at night and PRN. Na levels are increasing. Agree with D5W. Unable to place DH, several nurses tried. Will ask speech to come by and reassess now that patient is more willing to cooperate. . Continue PT/OT, sat up on side of bed yesterday. Continue IMCU monitoring for now. As stated below, patient was intubated for 37 days. CCT 31 minutes. Subjective Date of service: 06/25/19 Principal diagnosis: anemia - LOw PLT Interval history: No acute events. having fevers but subsided with scheduled tylenol therapy. Cultures are pending and she was started on IV abx by ID. REmains awake and alert. Now on T-piece. Objective Vital Signs - 12hr 06/24/19 06/24/19 06/24/19 23:00 23:15 23:30 Temperature Pulse Rate 105 H 109 H 107 H Pulse Rate [ From Monitor] Respiratory 20 29 H 22 Rate Blood Pressure 180/90 163/101 171/96 O2 Sat by Pulse 98 97 96 Oximetry O2 Sat by Pulse Oximetry [ Assessment] 06/24/19 06/25/19 06/25/19 23:45 00:00 00:15 Temperature 99.9 F H Pulse Rate 106 H 109 H 108 H Pulse Rate [ 107 H From Monitor] Respiratory 35 H 26 H 28 H Rate Blood Pressure 187/100 170/97 170/92 O2 Sat by Pulse 97 Oximetry O2 Sat by Pulse Oximetry [ Assessment] 06/25/19 06/25/19 06/25/19 00:30 00:45 01:01 Temperature Pulse Rate 107 H 108 H 106 H Pulse Rate [ From Monitor] Respiratory 28 H 22 21 Rate Blood Pressure 173/94 176/97 172/92 O2 Sat by Pulse Oximetry O2 Sat by Pulse Oximetry [ Assessment] 06/25/19 06/25/19 06/25/19 01:10 01:15 01:30 Temperature Pulse Rate 99 H 103 H 107 H Pulse Rate [ From Monitor] Respiratory 31 H 35 H Rate Blood Pressure 141/76 176/92 180/99 O2 Sat by Pulse 96 Oximetry O2 Sat by Pulse Oximetry [ Assessment] 06/25/19 06/25/19 06/25/19 01:45 02:00 02:15 Temperature Pulse Rate 105 H 104 H 105 H Pulse Rate [ From Monitor] Respiratory 34 H 11 L 11 L Rate Blood Pressure 165/99 176/99 174/105 O2 Sat by Pulse Oximetry O2 Sat by Pulse Oximetry [ Assessment] 06/25/19 06/25/19 06/25/19 02:31 02:45 03:00 Temperature Pulse Rate 99 H 97 H 97 H Pulse Rate [ From Monitor] Respiratory 28 H 23 18 Rate Blood Pressure 174/105 174/105 153/95 O2 Sat by Pulse Oximetry O2 Sat by Pulse Oximetry [ Assessment] 06/25/19 06/25/19 06/25/19 03:15 03:30 03:45 Temperature Pulse Rate 92 H 92 H 92 H Pulse Rate [ From Monitor] Respiratory 16 19 19 Rate Blood Pressure 156/94 142/79 142/82 O2 Sat by Pulse Oximetry O2 Sat by Pulse Oximetry [ Assessment] 06/25/19 06/25/19 06/25/19 04:00 04:15 04:30 Temperature 97.9 F Pulse Rate 95 H 93 H 94 H Pulse Rate [ 95 H From Monitor] Respiratory 11 L 21 18 Rate Blood Pressure 161/108 167/100 163/99 O2 Sat by Pulse 97 Oximetry O2 Sat by Pulse 100 Oximetry [ Assessment] 06/25/19 06/25/19 06/25/19 04:45 05:00 05:15 Temperature Pulse Rate 95 H 92 H 90 Pulse Rate [ From Monitor] Respiratory 19 16 17 Rate Blood Pressure 165/94 165/101 154/86 O2 Sat by Pulse 99 Oximetry O2 Sat by Pulse Oximetry [ Assessment] 06/25/19 06/25/19 06/25/19 05:30 05:45 06:00 Temperature Pulse Rate 96 H 89 92 H Pulse Rate [ From Monitor] Respiratory 14 20 20 Rate Blood Pressure 156/93 163/94 162/92 O2 Sat by Pulse Oximetry O2 Sat by Pulse Oximetry [ Assessment] 06/25/19 06/25/19 06/25/19 06:15 06:30 06:45 Temperature Pulse Rate 89 95 H 89 Pulse Rate [ From Monitor] Respiratory 17 19 19 Rate Blood Pressure 162/90 180/99 167/85 O2 Sat by Pulse Oximetry O2 Sat by Pulse Oximetry [ Assessment] 06/25/19 06/25/19 06/25/19 07:00 07:15 07:30 Temperature Pulse Rate 96 H 89 95 H Pulse Rate [ From Monitor] Respiratory 20 22 20 Rate Blood Pressure 164/91 155/85 161/87 O2 Sat by Pulse 94 Oximetry O2 Sat by Pulse Oximetry [ Assessment] 06/25/19 06/25/19 06/25/19 07:45 07:53 08:00 Temperature 99.6 F Pulse Rate 93 H 102 H Pulse Rate [ 90 From Monitor] Respiratory 19 25 H Rate Blood Pressure 162/99 175/98 O2 Sat by Pulse 95 96 93 Oximetry O2 Sat by Pulse Oximetry [ Assessment] 06/25/19 06/25/19 06/25/19 08:15 10:30 10:41 Temperature Pulse Rate 97 H 101 H Pulse Rate [ From Monitor] Respiratory 28 H Rate Blood Pressure 163/97 164/87 152/84 O2 Sat by Pulse 93 93 Oximetry O2 Sat by Pulse Oximetry [ Assessment] Constitutional: other (morbidly obese male, critically ill on vent) Eyes: non-icteric ENT: oropharynx moist Neck: other (extremely large in circumference) Effort: normal Ascultation: Bilateral: diminished breath sounds (secondary to body habitus), rhonchi Cardiovascular: regular rate and rhythm (no mrg) Gastrointestinal: normoactive bowel sounds, soft, non-tender, other (obese) Integumentary: other (L hand is wrapped) Extremities: no cyanosis, pink and warm, other (1+ generalized edema) Neurologic: normal mental status, non-focal exam Psychiatric: mood appropriate, affect normal CBC and BMP: 06/25/19 04:46 06/25/19 04:46 ABG, PT/INR, D-dimer: ABG POC ABG pH 7.462 (7.35-7.45) H 06/05/19 03:52 ABG pH 7.469 pH Units (7.350-7.450) H 06/23/19 02:00 POC ABG pCO2 39.8 (35-45) 06/05/19 03:52 ABG pCO2 39.4 mm Hg 06/23/19 02:00 POC ABG pO2 86 (80-105) 06/05/19 03:52 ABG pO2 58.7 mm Hg (80.0-90.0) L 06/23/19 02:00 POC ABG HCO3 28.4 (22-26 mml/L) 06/05/19 03:52 POC ABG Total CO2 30 (23-27mmol/L) 06/05/19 03:52 POC ABG O2 Sat 97 06/05/19 03:52 ABG O2 Saturation 94.6 % (95.0-99.0) L 06/23/19 02:00 PT/INR, D-dimer PT 15.4 Sec. (12.2-14.9) H 05/01/19 Unknown INR 1.23 (0.87-1.13) H 05/01/19 Unknown Abnormal lab findings: Abnormal Labs 05/01/19 05/01/19 05/01/19 17:50 19:26 22:36 WBC RBC Hgb Hct MCV MCH MCHC RDW Plt Count Lymph % (Auto) [place] % (Auto) Eos % (Auto) Lymph # [place] # Eos # Seg Neutrophils % Seg Neuts % (Manual) Lymphocytes % (Manual) Monocytes % (Manual) Eosinophils % (Manual) Nucleated RBC % Seg Neutrophils # Seg Neutrophils # Man Lymphocytes # (Manual) Monocytes # (Manual) Eosinophils # (Manual) PT INR APTT Fibrinogen POC ABG pH 7.272 L 7.331 L ABG pH POC ABG pCO2 52.8 H POC ABG pO2 ABG pO2 ABG HCO3 ABG O2 Saturation ABG Base Excess ABG Hemoglobin Oxyhemoglobin Sodium 136 L Potassium 6.5 H* Chloride 97.2 L Carbon Dioxide BUN 60 H Creatinine Glucose 113 H POC Glucose Uric Acid Calcium Phosphorus Magnesium 2.40 H Iron TIBC AST 139 H ALT 154 H Total Creatine Kinase CK-MB (CK-2) Troponin T NT-Pro-B Natriuret Pep Total Protein Albumin 3.8 L Triglycerides HDL Cholesterol Folate Urine WBC (Auto) Urine Creatinine Urine Total Protein Vancomycin Trough 05/01/19 05/01/19 05/01/19 Unknown Unknown Unknown WBC 16.1 H RBC Hgb Hct MCV MCH MCHC RDW 17.2 H Plt Count Lymph % (Auto) [place] % (Auto) 9.6 H Eos % (Auto) Lymph # [place] # 1.5 H Eos # Seg Neutrophils % 73.0 H Seg Neuts % (Manual) Lymphocytes % (Manual) Monocytes % (Manual) Eosinophils % (Manual) Nucleated RBC % Seg Neutrophils # 11.7 H Seg Neutrophils # Man Lymphocytes # (Manual) Monocytes # (Manual) Eosinophils # (Manual) PT 15.4 H INR 1.23 H APTT 22.7 L Fibrinogen POC ABG pH ABG pH POC ABG pCO2 POC ABG pO2 ABG pO2 ABG HCO3 ABG O2 Saturation ABG Base Excess ABG Hemoglobin Oxyhemoglobin Sodium Potassium Chloride Carbon Dioxide BUN Creatinine Glucose POC Glucose Uric Acid Calcium Phosphorus Magnesium Iron TIBC AST ALT Total Creatine Kinase CK-MB (CK-2) Troponin T NT-Pro-B Natriuret Pep 6831 H Total Protein Albumin Triglycerides HDL Cholesterol Folate Urine WBC (Auto) Urine Creatinine Urine Total Protein Vancomycin Trough 05/01/19 05/02/19 05/02/19 Unknown 00:06 00:06 WBC RBC Hgb Hct MCV MCH MCHC RDW Plt Count Lymph % (Auto) [place] % (Auto) Eos % (Auto) Lymph # [place] # Eos # Seg Neutrophils % Seg Neuts % (Manual) Lymphocytes % (Manual) Monocytes % (Manual) Eosinophils % (Manual) Nucleated RBC % Seg Neutrophils # Seg Neutrophils # Man Lymphocytes # (Manual) Monocytes # (Manual) Eosinophils # (Manual) PT INR APTT Fibrinogen POC ABG pH ABG pH POC ABG pCO2 POC ABG pO2 ABG pO2 ABG HCO3 ABG O2 Saturation ABG Base Excess ABG Hemoglobin Oxyhemoglobin Sodium Potassium Chloride Carbon Dioxide BUN Creatinine Glucose POC Glucose Uric Acid Calcium Phosphorus 4.90 H Magnesium Iron TIBC AST ALT Total Creatine Kinase 226 H CK-MB (CK-2) 5.7 H Troponin T 0.044 H NT-Pro-B Natriuret Pep Total Protein Albumin Triglycerides 182 H HDL Cholesterol 18 L Folate Urine WBC (Auto) Urine Creatinine Urine Total Protein Vancomycin Trough 05/02/19 05/02/19 05/02/19 02:08 04:40 04:41 WBC 17.6 H RBC Hgb Hct MCV MCH 27 L MCHC RDW 17.4 H Plt Count Lymph % (Auto) 10.2 L [place] % (Auto) 11.0 H Eos % (Auto) Lymph # [place] # 1.9 H Eos # Seg Neutrophils % 78.0 H Seg Neuts % (Manual) Lymphocytes % (Manual) Monocytes % (Manual) Eosinophils % (Manual) Nucleated RBC % Seg Neutrophils # 13.8 H Seg Neutrophils # Man Lymphocytes # (Manual) Monocytes # (Manual) Eosinophils # (Manual) PT INR APTT Fibrinogen POC ABG pH ABG pH POC ABG pCO2 46.8 H POC ABG pO2 63 L ABG pO2 ABG HCO3 ABG O2 Saturation ABG Base Excess ABG Hemoglobin Oxyhemoglobin Sodium Potassium Chloride 96.3 L Carbon Dioxide BUN 63 H Creatinine 1.7 H Glucose POC Glucose Uric Acid Calcium Phosphorus Magnesium Iron TIBC AST ALT Total Creatine Kinase CK-MB (CK-2) Troponin T NT-Pro-B Natriuret Pep Total Protein Albumin Triglycerides HDL Cholesterol Folate Urine WBC (Auto) Urine Creatinine Urine Total Protein Vancomycin Trough 05/02/19 05/02/19 05/02/19 04:41 04:41 16:05 WBC RBC Hgb Hct MCV MCH MCHC RDW Plt Count Lymph % (Auto) [place] % (Auto) Eos % (Auto) Lymph # [place] # Eos # Seg Neutrophils % Seg Neuts % (Manual) Lymphocytes % (Manual) Monocytes % (Manual) Eosinophils % (Manual) Nucleated RBC % Seg Neutrophils # Seg Neutrophils # Man Lymphocytes # (Manual) Monocytes # (Manual) Eosinophils # (Manual) PT INR APTT Fibrinogen POC ABG pH ABG pH POC ABG pCO2 POC ABG pO2 ABG pO2 66.6 L ABG HCO3 31.9 H ABG O2 Saturation 92.5 L ABG Base Excess 5.8 H ABG Hemoglobin 13.3 L Oxyhemoglobin 90.6 L Sodium Potassium Chloride 97.2 L Carbon Dioxide BUN 61 H Creatinine 1.8 H Glucose POC Glucose Uric Acid Calcium Phosphorus Magnesium Iron TIBC AST ALT Total Creatine Kinase CK-MB (CK-2) 5.2 H Troponin T 0.067 H D NT-Pro-B Natriuret Pep Total Protein Albumin Triglycerides HDL Cholesterol Folate Urine WBC (Auto) Urine Creatinine Urine Total Protein Vancomycin Trough 05/02/19 05/03/19 05/03/19 20:39 04:35 05:05 WBC 11.8 H RBC Hgb Hct MCV MCH 27 L MCHC 31 L RDW 17.2 H Plt Count Lymph % (Auto) [place] % (Auto) Eos % (Auto) Lymph # [place] # Eos # Seg Neutrophils % Seg Neuts % (Manual) Lymphocytes % (Manual) Monocytes % (Manual) Eosinophils % (Manual) Nucleated RBC % Seg Neutrophils # Seg Neutrophils # Man Lymphocytes # (Manual) Monocytes # (Manual) Eosinophils # (Manual) PT INR APTT Fibrinogen POC ABG pH ABG pH POC ABG pCO2 53.6 H 54.0 H POC ABG pO2 55 L 63 L ABG pO2 ABG HCO3 ABG O2 Saturation ABG Base Excess ABG Hemoglobin Oxyhemoglobin Sodium Potassium Chloride Carbon Dioxide BUN Creatinine Glucose POC Glucose Uric Acid Calcium Phosphorus Magnesium Iron TIBC AST ALT Total Creatine Kinase CK-MB (CK-2) Troponin T NT-Pro-B Natriuret Pep Total Protein Albumin Triglycerides HDL Cholesterol Folate Urine WBC (Auto) Urine Creatinine Urine Total Protein Vancomycin Trough 05/03/19 05/03/19 05/03/19 05:05 10:55 16:48 WBC RBC Hgb Hct MCV MCH MCHC RDW Plt Count Lymph % (Auto) [place] % (Auto) Eos % (Auto) Lymph # [place] # Eos # Seg Neutrophils % Seg Neuts % (Manual) Lymphocytes % (Manual) Monocytes % (Manual) Eosinophils % (Manual) Nucleated RBC % Seg Neutrophils # Seg Neutrophils # Man Lymphocytes # (Manual) Monocytes # (Manual) Eosinophils # (Manual) PT INR APTT Fibrinogen POC ABG pH 7.604 H ABG pH POC ABG pCO2 POC ABG pO2 58 L ABG pO2 ABG HCO3 ABG O2 Saturation ABG Base Excess ABG Hemoglobin Oxyhemoglobin Sodium Potassium Chloride Carbon Dioxide BUN 52 H Creatinine 1.9 H Glucose 103 H POC Glucose Uric Acid Calcium Phosphorus Magnesium Iron TIBC AST ALT Total Creatine Kinase CK-MB (CK-2) Troponin T NT-Pro-B Natriuret Pep Total Protein Albumin Triglycerides HDL Cholesterol Folate Urine WBC (Auto) 33.0 H Urine Creatinine Urine Total Protein Vancomycin Trough 05/04/19 05/04/19 05/04/19 04:49 06:50 06:50 WBC 16.0 H RBC Hgb Hct MCV MCH 27 L MCHC 31 L RDW 17.8 H Plt Count Lymph % (Auto) [place] % (Auto) Eos % (Auto) Lymph # [place] # Eos # Seg Neutrophils % Seg Neuts % (Manual) Lymphocytes % (Manual) Monocytes % (Manual) Eosinophils % (Manual) Nucleated RBC % Seg Neutrophils # Seg Neutrophils # Man Lymphocytes # (Manual) Monocytes # (Manual) Eosinophils # (Manual) PT INR APTT Fibrinogen POC ABG pH 7.273 L ABG pH POC ABG pCO2 POC ABG pO2 ABG pO2 ABG HCO3 ABG O2 Saturation ABG Base Excess ABG Hemoglobin Oxyhemoglobin Sodium 148 H Potassium 5.5 H Chloride Carbon Dioxide BUN 53 H Creatinine 3.3 H D Glucose 106 H POC Glucose Uric Acid Calcium 8.3 L Phosphorus Magnesium Iron TIBC AST ALT Total Creatine Kinase CK-MB (CK-2) Troponin T NT-Pro-B Natriuret Pep Total Protein Albumin Triglycerides HDL Cholesterol Folate Urine WBC (Auto) Urine Creatinine Urine Total Protein Vancomycin Trough 05/05/19 05/05/19 05/05/19 00:05 04:30 05:00 WBC RBC Hgb Hct MCV MCH MCHC RDW Plt Count Lymph % (Auto) [place] % (Auto) Eos % (Auto) Lymph # [place] # Eos # Seg Neutrophils % Seg Neuts % (Manual) Lymphocytes % (Manual) Monocytes % (Manual) Eosinophils % (Manual) Nucleated RBC % Seg Neutrophils # Seg Neutrophils # Man Lymphocytes # (Manual) Monocytes # (Manual) Eosinophils # (Manual) PT INR APTT Fibrinogen POC ABG pH 7.225 L ABG pH POC ABG pCO2 > 70 H POC ABG pO2 ABG pO2 ABG HCO3 ABG O2 Saturation ABG Base Excess ABG Hemoglobin Oxyhemoglobin Sodium 151 H Potassium 5.1 H Chloride Carbon Dioxide BUN 64 H Creatinine 3.5 H Glucose 117 H POC Glucose 141 H Uric Acid Calcium 7.5 L Phosphorus Magnesium Iron TIBC AST 93 H ALT 65 H Total Creatine Kinase CK-MB (CK-2) Troponin T NT-Pro-B Natriuret Pep Total Protein Albumin 2.9 L Triglycerides HDL Cholesterol Folate Urine WBC (Auto) Urine Creatinine Urine Total Protein Vancomycin Trough 05/05/19 05/05/19 05/05/19 05:00 12:02 17:46 WBC 12.0 H RBC Hgb 11.3 L Hct MCV MCH 27 L MCHC 30 L RDW 18.4 H Plt Count Lymph % (Auto) 7.9 L [place] % (Auto) 10.2 H Eos % (Auto) Lymph # 1.0 L [place] # 1.2 H Eos # Seg Neutrophils % 80.8 H Seg Neuts % (Manual) Lymphocytes % (Manual) Monocytes % (Manual) Eosinophils % (Manual) Nucleated RBC % Seg Neutrophils # 9.7 H Seg Neutrophils # Man Lymphocytes # (Manual) Monocytes # (Manual) Eosinophils # (Manual) PT INR APTT Fibrinogen POC ABG pH ABG pH POC ABG pCO2 POC ABG pO2 ABG pO2 ABG HCO3 ABG O2 Saturation ABG Base Excess ABG Hemoglobin Oxyhemoglobin Sodium Potassium Chloride Carbon Dioxide BUN Creatinine Glucose POC Glucose 125 H 112 H Uric Acid Calcium Phosphorus Magnesium Iron TIBC AST ALT Total Creatine Kinase CK-MB (CK-2) Troponin T NT-Pro-B Natriuret Pep Total Protein Albumin Triglycerides HDL Cholesterol Folate Urine WBC (Auto) Urine Creatinine Urine Total Protein Vancomycin Trough 05/05/19 05/06/19 05/06/19 23:42 03:58 04:45 WBC 11.4 H RBC Hgb 10.7 L Hct 34.2 L MCV MCH 27 L MCHC 31 L RDW 16.9 H Plt Count Lymph % (Auto) [place] % (Auto) Eos % (Auto) Lymph # [place] # Eos # Seg Neutrophils % Seg Neuts % (Manual) Lymphocytes % (Manual) Monocytes % (Manual) Eosinophils % (Manual) Nucleated RBC % Seg Neutrophils # Seg Neutrophils # Man Lymphocytes # (Manual) Monocytes # (Manual) Eosinophils # (Manual) PT INR APTT Fibrinogen POC ABG pH ABG pH POC ABG pCO2 62.4 H POC ABG pO2 111 H ABG pO2 ABG HCO3 ABG O2 Saturation ABG Base Excess ABG Hemoglobin Oxyhemoglobin Sodium Potassium Chloride Carbon Dioxide BUN Creatinine Glucose POC Glucose 128 H Uric Acid Calcium Phosphorus Magnesium Iron TIBC AST ALT Total Creatine Kinase CK-MB (CK-2) Troponin T NT-Pro-B Natriuret Pep Total Protein Albumin Triglycerides HDL Cholesterol Folate Urine WBC (Auto) Urine Creatinine Urine Total Protein Vancomycin Trough 05/06/19 05/06/19 05/06/19 04:45 05:33 12:30 WBC RBC Hgb Hct MCV MCH MCHC RDW Plt Count Lymph % (Auto) [place] % (Auto) Eos % (Auto) Lymph # [place] # Eos # Seg Neutrophils % Seg Neuts % (Manual) Lymphocytes % (Manual) Monocytes % (Manual) Eosinophils % (Manual) Nucleated RBC % Seg Neutrophils # Seg Neutrophils # Man Lymphocytes # (Manual) Monocytes # (Manual) Eosinophils # (Manual) PT INR APTT Fibrinogen POC ABG pH ABG pH POC ABG pCO2 POC ABG pO2 ABG pO2 ABG HCO3 ABG O2 Saturation ABG Base Excess ABG Hemoglobin Oxyhemoglobin Sodium 149 H Potassium Chloride Carbon Dioxide 31 H BUN 67 H Creatinine 3.2 H Glucose 125 H POC Glucose 117 H 116 H Uric Acid Calcium 7.5 L Phosphorus Magnesium Iron TIBC AST ALT Total Creatine Kinase CK-MB (CK-2) Troponin T NT-Pro-B Natriuret Pep Total Protein Albumin Triglycerides HDL Cholesterol Folate Urine WBC (Auto) Urine Creatinine Urine Total Protein Vancomycin Trough 05/06/19 05/06/19 05/07/19 18:34 23:16 05:22 WBC RBC Hgb Hct MCV MCH MCHC RDW Plt Count Lymph % (Auto) [place] % (Auto) Eos % (Auto) Lymph # [place] # Eos # Seg Neutrophils % Seg Neuts % (Manual) Lymphocytes % (Manual) Monocytes % (Manual) Eosinophils % (Manual) Nucleated RBC % Seg Neutrophils # Seg Neutrophils # Man Lymphocytes # (Manual) Monocytes # (Manual) Eosinophils # (Manual) PT INR APTT Fibrinogen POC ABG pH ABG pH POC ABG pCO2 POC ABG pO2 ABG pO2 ABG HCO3 ABG O2 Saturation ABG Base Excess ABG Hemoglobin Oxyhemoglobin Sodium Potassium Chloride Carbon Dioxide BUN Creatinine Glucose POC Glucose 128 H 143 H 166 H Uric Acid Calcium Phosphorus Magnesium Iron TIBC AST ALT Total Creatine Kinase CK-MB (CK-2) Troponin T NT-Pro-B Natriuret Pep Total Protein Albumin Triglycerides HDL Cholesterol Folate Urine WBC (Auto) Urine Creatinine Urine Total Protein Vancomycin Trough 05/07/19 05/07/19 05/07/19 06:33 07:03 09:35 WBC RBC Hgb Hct MCV MCH MCHC RDW Plt Count Lymph % (Auto) [place] % (Auto) Eos % (Auto) Lymph # [place] # Eos # Seg Neutrophils % Seg Neuts % (Manual) Lymphocytes % (Manual) Monocytes % (Manual) Eosinophils % (Manual) Nucleated RBC % Seg Neutrophils # Seg Neutrophils # Man Lymphocytes # (Manual) Monocytes # (Manual) Eosinophils # (Manual) PT INR APTT Fibrinogen POC ABG pH 7.263 L 7.288 L ABG pH POC ABG pCO2 POC ABG pO2 51 L 56 L ABG pO2 ABG HCO3 ABG O2 Saturation ABG Base Excess ABG Hemoglobin Oxyhemoglobin Sodium Potassium Chloride Carbon Dioxide BUN 76 H Creatinine 3.2 H Glucose 147 H POC Glucose Uric Acid Calcium 7.9 L Phosphorus Magnesium Iron TIBC AST ALT Total Creatine Kinase CK-MB (CK-2) Troponin T NT-Pro-B Natriuret Pep Total Protein Albumin Triglycerides HDL Cholesterol Folate Urine WBC (Auto) Urine Creatinine Urine Total Protein Vancomycin Trough 05/07/19 05/07/19 05/07/19 09:35 12:17 13:45 WBC 13.4 H RBC Hgb 11.6 L Hct MCV MCH 27 L MCHC 31 L RDW 17.5 H Plt Count Lymph % (Auto) [place] % (Auto) Eos % (Auto) Lymph # [place] # Eos # Seg Neutrophils % Seg Neuts % (Manual) Lymphocytes % (Manual) Monocytes % (Manual) Eosinophils % (Manual) Nucleated RBC % Seg Neutrophils # Seg Neutrophils # Man Lymphocytes # (Manual) Monocytes # (Manual) Eosinophils # (Manual) PT INR APTT Fibrinogen POC ABG pH ABG pH POC ABG pCO2 POC ABG pO2 ABG pO2 ABG HCO3 ABG O2 Saturation ABG Base Excess ABG Hemoglobin Oxyhemoglobin Sodium Potassium Chloride Carbon Dioxide BUN Creatinine Glucose POC Glucose 130 H Uric Acid 18.0 H Calcium Phosphorus Magnesium Iron TIBC AST ALT Total Creatine Kinase CK-MB (CK-2) Troponin T NT-Pro-B Natriuret Pep Total Protein Albumin Triglycerides HDL Cholesterol Folate Urine WBC (Auto) Urine Creatinine Urine Total Protein Vancomycin Trough 05/07/19 05/07/19 05/08/19 17:39 22:40 05:06 WBC RBC Hgb Hct MCV MCH MCHC RDW Plt Count Lymph % (Auto) [place] % (Auto) Eos % (Auto) Lymph # [place] # Eos # Seg Neutrophils % Seg Neuts % (Manual) Lymphocytes % (Manual) Monocytes % (Manual) Eosinophils % (Manual) Nucleated RBC % Seg Neutrophils # Seg Neutrophils # Man Lymphocytes # (Manual) Monocytes # (Manual) Eosinophils # (Manual) PT INR APTT Fibrinogen POC ABG pH ABG pH POC ABG pCO2 POC ABG pO2 ABG pO2 ABG HCO3 ABG O2 Saturation ABG Base Excess ABG Hemoglobin Oxyhemoglobin Sodium Potassium Chloride Carbon Dioxide BUN Creatinine Glucose POC Glucose 116 H 148 H Uric Acid Calcium Phosphorus Magnesium Iron TIBC AST ALT Total Creatine Kinase CK-MB (CK-2) Troponin T NT-Pro-B Natriuret Pep Total Protein Albumin Triglycerides HDL Cholesterol Folate Urine WBC (Auto) Urine Creatinine 292.8 H Urine Total Protein 269 H Vancomycin Trough 05/08/19 05/08/19 05/08/19 05:32 11:28 13:48 WBC RBC Hgb Hct MCV MCH MCHC RDW Plt Count Lymph % (Auto) [place] % (Auto) Eos % (Auto) Lymph # [place] # Eos # Seg Neutrophils % Seg Neuts % (Manual) Lymphocytes % (Manual) Monocytes % (Manual) Eosinophils % (Manual) Nucleated RBC % Seg Neutrophils # Seg Neutrophils # Man Lymphocytes # (Manual) Monocytes # (Manual) Eosinophils # (Manual) PT INR APTT Fibrinogen POC ABG pH ABG pH POC ABG pCO2 45.4 H POC ABG pO2 64 L ABG pO2 ABG HCO3 ABG O2 Saturation ABG Base Excess ABG Hemoglobin Oxyhemoglobin Sodium Potassium Chloride Carbon Dioxide BUN 73 H Creatinine 2.7 H Glucose 127 H POC Glucose 107 H Uric Acid Calcium 7.6 L Phosphorus Magnesium Iron TIBC AST ALT Total Creatine Kinase CK-MB (CK-2) Troponin T NT-Pro-B Natriuret Pep Total Protein Albumin Triglycerides HDL Cholesterol Folate Urine WBC (Auto) Urine Creatinine Urine Total Protein Vancomycin Trough 05/08/19 05/09/19 05/09/19 17:48 04:50 04:53 WBC RBC 3.07 L Hgb 8.5 L D Hct 29.3 L D MCV 96 H MCH MCHC 29 L RDW 18.1 H Plt Count Lymph % (Auto) [place] % (Auto) Eos % (Auto) Lymph # [place] # Eos # Seg Neutrophils % Seg Neuts % (Manual) Lymphocytes % (Manual) Monocytes % (Manual) Eosinophils % (Manual) Nucleated RBC % Seg Neutrophils # Seg Neutrophils # Man Lymphocytes # (Manual) Monocytes # (Manual) Eosinophils # (Manual) PT INR APTT Fibrinogen POC ABG pH 7.316 L ABG pH POC ABG pCO2 66.0 H POC ABG pO2 69 L ABG pO2 ABG HCO3 ABG O2 Saturation ABG Base Excess ABG Hemoglobin Oxyhemoglobin Sodium Potassium Chloride Carbon Dioxide BUN Creatinine Glucose POC Glucose 155 H Uric Acid Calcium Phosphorus Magnesium Iron TIBC AST ALT Total Creatine Kinase CK-MB (CK-2) Troponin T NT-Pro-B Natriuret Pep Total Protein Albumin Triglycerides HDL Cholesterol Folate Urine WBC (Auto) Urine Creatinine Urine Total Protein Vancomycin Trough 05/09/19 05/09/19 05/09/19 05:46 07:24 12:10 WBC RBC Hgb Hct MCV MCH MCHC RDW Plt Count Lymph % (Auto) [place] % (Auto) Eos % (Auto) Lymph # [place] # Eos # Seg Neutrophils % Seg Neuts % (Manual) Lymphocytes % (Manual) Monocytes % (Manual) Eosinophils % (Manual) Nucleated RBC % Seg Neutrophils # Seg Neutrophils # Man Lymphocytes # (Manual) Monocytes # (Manual) Eosinophils # (Manual) PT INR APTT Fibrinogen POC ABG pH ABG pH POC ABG pCO2 POC ABG pO2 ABG pO2 ABG HCO3 ABG O2 Saturation ABG Base Excess ABG Hemoglobin Oxyhemoglobin Sodium Potassium Chloride Carbon Dioxide BUN 73 H Creatinine 2.4 H Glucose 153 H POC Glucose 123 H 148 H Uric Acid Calcium 8.2 L Phosphorus Magnesium Iron TIBC AST 45 H ALT Total Creatine Kinase CK-MB (CK-2) Troponin T NT-Pro-B Natriuret Pep Total Protein 6.0 L Albumin 1.9 L Triglycerides HDL Cholesterol Folate Urine WBC (Auto) Urine Creatinine Urine Total Protein Vancomycin Trough 05/09/19 05/09/19 05/10/19 18:23 23:26 04:52 WBC RBC Hgb Hct MCV MCH MCHC RDW Plt Count Lymph % (Auto) [place] % (Auto) Eos % (Auto) Lymph # [place] # Eos # Seg Neutrophils % Seg Neuts % (Manual) Lymphocytes % (Manual) Monocytes % (Manual) Eosinophils % (Manual) Nucleated RBC % Seg Neutrophils # Seg Neutrophils # Man Lymphocytes # (Manual) Monocytes # (Manual) Eosinophils # (Manual) PT INR APTT Fibrinogen POC ABG pH 7.305 L ABG pH POC ABG pCO2 62.6 H POC ABG pO2 ABG pO2 ABG HCO3 ABG O2 Saturation ABG Base Excess ABG Hemoglobin Oxyhemoglobin Sodium Potassium Chloride Carbon Dioxide BUN Creatinine Glucose POC Glucose 147 H 121 H Uric Acid Calcium Phosphorus Magnesium Iron TIBC AST ALT Total Creatine Kinase CK-MB (CK-2) Troponin T NT-Pro-B Natriuret Pep Total Protein Albumin Triglycerides HDL Cholesterol Folate Urine WBC (Auto) Urine Creatinine Urine Total Protein Vancomycin Trough 05/10/19 05/10/19 05/10/19 05:00 05:00 05:50 WBC RBC Hgb 10.3 L Hct 33.7 L MCV MCH 27 L MCHC 31 L RDW 17.0 H Plt Count Lymph % (Auto) [place] % (Auto) Eos % (Auto) Lymph # [place] # Eos # Seg Neutrophils % Seg Neuts % (Manual) Lymphocytes % (Manual) Monocytes % (Manual) Eosinophils % (Manual) Nucleated RBC % Seg Neutrophils # Seg Neutrophils # Man Lymphocytes # (Manual) Monocytes # (Manual) Eosinophils # (Manual) PT INR APTT Fibrinogen POC ABG pH ABG pH POC ABG pCO2 POC ABG pO2 ABG pO2 ABG HCO3 ABG O2 Saturation ABG Base Excess ABG Hemoglobin Oxyhemoglobin Sodium 147 H Potassium Chloride Carbon Dioxide BUN 70 H Creatinine 2.6 H Glucose 155 H POC Glucose 158 H Uric Acid Calcium 8.2 L Phosphorus Magnesium Iron TIBC AST ALT Total Creatine Kinase CK-MB (CK-2) Troponin T NT-Pro-B Natriuret Pep Total Protein 6.1 L Albumin 2.5 L Triglycerides HDL Cholesterol Folate Urine WBC (Auto) Urine Creatinine Urine Total Protein Vancomycin Trough 05/10/19 05/11/19 05/11/19 13:14 07:26 11:40 WBC RBC Hgb Hct MCV MCH MCHC RDW Plt Count Lymph % (Auto) [place] % (Auto) Eos % (Auto) Lymph # [place] # Eos # Seg Neutrophils % Seg Neuts % (Manual) Lymphocytes % (Manual) Monocytes % (Manual) Eosinophils % (Manual) Nucleated RBC % Seg Neutrophils # Seg Neutrophils # Man Lymphocytes # (Manual) Monocytes # (Manual) Eosinophils # (Manual) PT INR APTT Fibrinogen POC ABG pH ABG pH POC ABG pCO2 48.0 H POC ABG pO2 58 L ABG pO2 ABG HCO3 ABG O2 Saturation ABG Base Excess ABG Hemoglobin Oxyhemoglobin Sodium 147 H Potassium Chloride 107.2 H Carbon Dioxide BUN 67 H Creatinine 2.6 H Glucose 121 H POC Glucose 159 H Uric Acid Calcium Phosphorus Magnesium Iron TIBC AST ALT Total Creatine Kinase CK-MB (CK-2) Troponin T NT-Pro-B Natriuret Pep Total Protein Albumin Triglycerides HDL Cholesterol Folate Urine WBC (Auto) Urine Creatinine Urine Total Protein Vancomycin Trough 05/11/19 05/11/19 05/12/19 18:13 23:46 04:40 WBC RBC Hgb Hct MCV MCH MCHC RDW Plt Count Lymph % (Auto) [place] % (Auto) Eos % (Auto) Lymph # [place] # Eos # Seg Neutrophils % Seg Neuts % (Manual) Lymphocytes % (Manual) Monocytes % (Manual) Eosinophils % (Manual) Nucleated RBC % Seg Neutrophils # Seg Neutrophils # Man Lymphocytes # (Manual) Monocytes # (Manual) Eosinophils # (Manual) PT INR APTT Fibrinogen POC ABG pH ABG pH 7.264 L POC ABG pCO2 POC ABG pO2 ABG pO2 66.8 L ABG HCO3 31.0 H ABG O2 Saturation 92.0 L ABG Base Excess ABG Hemoglobin 10.3 L Oxyhemoglobin 90.1 L Sodium Potassium Chloride Carbon Dioxide BUN Creatinine Glucose POC Glucose 120 H 121 H Uric Acid Calcium Phosphorus Magnesium Iron TIBC AST ALT Total Creatine Kinase CK-MB (CK-2) Troponin T NT-Pro-B Natriuret Pep Total Protein Albumin Triglycerides HDL Cholesterol Folate Urine WBC (Auto) Urine Creatinine Urine Total Protein Vancomycin Trough 05/12/19 05/12/1905/12/19 04:45 04:45 11:14 WBC RBC Hgb 10.2 L Hct 32.4 L MCV MCH MCHC 31 L RDW 17.2 H Plt Count Lymph % (Auto) [place] % (Auto) Eos % (Auto) Lymph # [place] # Eos # Seg Neutrophils % Seg Neuts % (Manual) Lymphocytes % (Manual) Monocytes % (Manual) Eosinophils % (Manual) Nucleated RBC % Seg Neutrophils # Seg Neutrophils # Man Lymphocytes # (Manual) Monocytes # (Manual) Eosinophils # (Manual) PT INR APTT Fibrinogen POC ABG pH 7.284 L ABG pH POC ABG pCO2 67.8 H POC ABG pO2 ABG pO2 ABG HCO3 ABG O2 Saturation ABG Base Excess ABG Hemoglobin Oxyhemoglobin Sodium Potassium Chloride Carbon Dioxide BUN 63 H Creatinine 2.4 H Glucose 110 H POC Glucose Uric Acid Calcium Phosphorus Magnesium Iron TIBC AST ALT Total Creatine Kinase CK-MB (CK-2) Troponin T NT-Pro-B Natriuret Pep Total Protein Albumin Triglycerides HDL Cholesterol Folate Urine WBC (Auto) Urine Creatinine Urine Total Protein Vancomycin Trough 05/12/19 05/12/19 05/13/19 11:44 23:11 04:30 WBC RBC Hgb Hct MCV MCH MCHC RDW Plt Count Lymph % (Auto) [place] % (Auto) Eos % (Auto) Lymph # [place] # Eos # Seg Neutrophils % Seg Neuts % (Manual) Lymphocytes % (Manual) Monocytes % (Manual) Eosinophils % (Manual) Nucleated RBC % Seg Neutrophils # Seg Neutrophils # Man Lymphocytes # (Manual) Monocytes # (Manual) Eosinophils # (Manual) PT INR APTT Fibrinogen POC ABG pH ABG pH 7.288 L POC ABG pCO2 POC ABG pO2 ABG pO2 109.7 H ABG HCO3 30.9 H ABG O2 Saturation ABG Base Excess 3.2 H ABG Hemoglobin 9.6 L Oxyhemoglobin Sodium Potassium Chloride Carbon Dioxide BUN Creatinine Glucose POC Glucose 126 H 147 H Uric Acid Calcium Phosphorus Magnesium Iron TIBC AST ALT Total Creatine Kinase CK-MB (CK-2) Troponin T NT-Pro-B Natriuret Pep Total Protein Albumin Triglycerides HDL Cholesterol Folate Urine WBC (Auto) Urine Creatinine Urine Total Protein Vancomycin Trough 05/13/19 05/13/19 05/14/19 06:27 11:58 04:00 WBC RBC 3.16 L Hgb 9.3 L Hct 27.9 L MCV MCH MCHC RDW 17.1 H Plt Count Lymph % (Auto) [place] % (Auto) Eos % (Auto) Lymph # [place] # Eos # Seg Neutrophils % Seg Neuts % (Manual) Lymphocytes % (Manual) Monocytes % (Manual) Eosinophils % (Manual) Nucleated RBC % Seg Neutrophils # Seg Neutrophils # Man Lymphocytes # (Manual) Monocytes # (Manual) Eosinophils # (Manual) PT INR APTT Fibrinogen POC ABG pH ABG pH POC ABG pCO2 POC ABG pO2 ABG pO2 ABG HCO3 ABG O2 Saturation ABG Base Excess ABG Hemoglobin Oxyhemoglobin Sodium Potassium Chloride Carbon Dioxide BUN Creatinine Glucose POC Glucose 113 H 130 H Uric Acid Calcium Phosphorus Magnesium Iron TIBC AST ALT Total Creatine Kinase CK-MB (CK-2) Troponin T NT-Pro-B Natriuret Pep Total Protein Albumin Triglycerides HDL Cholesterol Folate Urine WBC (Auto) Urine Creatinine Urine Total Protein Vancomycin Trough 05/14/19 05/14/19 05/14/19 04:00 04:34 05:32 WBC RBC Hgb Hct MCV MCH MCHC RDW Plt Count Lymph % (Auto) [place] % (Auto) Eos % (Auto) Lymph # [place] # Eos # Seg Neutrophils % Seg Neuts % (Manual) Lymphocytes % (Manual) Monocytes % (Manual) Eosinophils % (Manual) Nucleated RBC % Seg Neutrophils # Seg Neutrophils # Man Lymphocytes # (Manual) Monocytes # (Manual) Eosinophils # (Manual) PT INR APTT Fibrinogen POC ABG pH 7.328 L ABG pH POC ABG pCO2 61.7 H POC ABG pO2 ABG pO2 ABG HCO3 ABG O2 Saturation ABG Base Excess ABG Hemoglobin Oxyhemoglobin Sodium 135 L D Potassium Chloride Carbon Dioxide BUN 57 H Creatinine 2.2 H Glucose 115 H POC Glucose 115 H Uric Acid Calcium 8.1 L Phosphorus Magnesium Iron TIBC AST ALT Total Creatine Kinase CK-MB (CK-2) Troponin T NT-Pro-B Natriuret Pep Total Protein Albumin Triglycerides HDL Cholesterol Folate Urine WBC (Auto) Urine Creatinine Urine Total Protein Vancomycin Trough 05/14/19 05/15/19 05/15/19 12:11 05:10 05:24 WBC RBC Hgb Hct MCV MCH MCHC RDW Plt Count Lymph % (Auto) [place] % (Auto) Eos % (Auto) Lymph # [place] # Eos # Seg Neutrophils % Seg Neuts % (Manual) Lymphocytes % (Manual) Monocytes % (Manual) Eosinophils % (Manual) Nucleated RBC % Seg Neutrophils # Seg Neutrophils # Man Lymphocytes # (Manual) Monocytes # (Manual) Eosinophils # (Manual) PT INR APTT Fibrinogen POC ABG pH ABG pH 7.342 L POC ABG pCO2 POC ABG pO2 ABG pO2 79.1 L ABG HCO3 28.2 H ABG O2 Saturation ABG Base Excess ABG Hemoglobin 7.0 L Oxyhemoglobin 94.4 L Sodium Potassium Chloride Carbon Dioxide BUN Creatinine Glucose POC Glucose 110 H 116 H Uric Acid Calcium Phosphorus Magnesium Iron TIBC AST ALT Total Creatine Kinase CK-MB (CK-2) Troponin T NT-Pro-B Natriuret Pep Total Protein Albumin Triglycerides HDL Cholesterol Folate Urine WBC (Auto) Urine Creatinine Urine Total Protein Vancomycin Trough 05/15/19 05/15/19 05/16/19 09:00 18:12 04:50 WBC RBC Hgb Hct MCV MCH MCHC RDW Plt Count Lymph % (Auto) [place] % (Auto) Eos % (Auto) Lymph # [place] # Eos # Seg Neutrophils % Seg Neuts % (Manual) Lymphocytes % (Manual) Monocytes % (Manual) Eosinophils % (Manual) Nucleated RBC % Seg Neutrophils # Seg Neutrophils # Man Lymphocytes # (Manual) Monocytes # (Manual) Eosinophils # (Manual) PT INR APTT Fibrinogen POC ABG pH ABG pH 7.250 L POC ABG pCO2 POC ABG pO2 ABG pO2 76.4 L ABG HCO3 ABG O2 Saturation 94.6 L ABG Base Excess -3.1 L ABG Hemoglobin 9.7 L Oxyhemoglobin 92.4 L Sodium Potassium Chloride Carbon Dioxide BUN Creatinine Glucose POC Glucose 110 H Uric Acid Calcium Phosphorus Magnesium Iron TIBC AST ALT Total Creatine Kinase CK-MB (CK-2) Troponin T NT-Pro-B Natriuret Pep Total Protein Albumin Triglycerides HDL Cholesterol Folate Urine WBC (Auto) Urine Creatinine Urine Total Protein Vancomycin Trough 20.5 H 05/16/19 05/16/19 05/17/19 05:50 05:50 04:20 WBC RBC 3.36 L 3.44 L Hgb 9.4 L 9.3 L Hct 29.1 L 29.7 L MCV MCH 27 L MCHC 31 L RDW 17.6 H 17.6 H Plt Count Lymph % (Auto) [place] % (Auto) Eos % (Auto) Lymph # [place] # Eos # Seg Neutrophils % Seg Neuts % (Manual) 77.0 H Lymphocytes % (Manual) 5.0 L Monocytes % (Manual) Eosinophils % (Manual) 10.0 H Nucleated RBC % Seg Neutrophils # Seg Neutrophils # Man Lymphocytes # (Manual) 0.5 L Monocytes # (Manual) Eosinophils # (Manual) 0.9 H PT INR APTT Fibrinogen POC ABG pH ABG pH POC ABG pCO2 POC ABG pO2 ABG pO2 ABG HCO3 ABG O2 Saturation ABG Base Excess ABG Hemoglobin Oxyhemoglobin Sodium Potassium Chloride Carbon Dioxide BUN 83 H Creatinine 4.4 H D Glucose 118 H POC Glucose Uric Acid Calcium Phosphorus Magnesium Iron TIBC AST ALT Total Creatine Kinase CK-MB (CK-2) Troponin T NT-Pro-B Natriuret Pep Total Protein Albumin Triglycerides HDL Cholesterol Folate Urine WBC (Auto) Urine Creatinine Urine Total Protein Vancomycin Trough 05/17/19 05/17/19 05/18/19 04:30 Unknown 01:50 WBC RBC 3.49 L Hgb 9.4 L Hct 30.0 L MCV MCH 27 L MCHC 31 L RDW 17.8 H Plt Count Lymph % (Auto) 7.9 L [place] % (Auto) 15.4 H Eos % (Auto) 6.3 H Lymph # 0.7 L [place] # 1.4 H Eos # 0.6 H Seg Neutrophils % 70.2 H Seg Neuts % (Manual) Lymphocytes % (Manual) Monocytes % (Manual) Eosinophils % (Manual) Nucleated RBC % Seg Neutrophils # Seg Neutrophils # Man Lymphocytes # (Manual) Monocytes # (Manual) Eosinophils # (Manual) PT INR APTT Fibrinogen POC ABG pH ABG pH 7.272 L POC ABG pCO2 POC ABG pO2 ABG pO2 75.7 L ABG HCO3 ABG O2 Saturation 93.8 L ABG Base Excess -3.0 L ABG Hemoglobin 7.8 L Oxyhemoglobin 91.6 L Sodium Potassium 5.2 H Chloride Carbon Dioxide BUN 96 H Creatinine 5.7 H Glucose 112 H POC Glucose Uric Acid Calcium Phosphorus Magnesium Iron TIBC AST ALT Total Creatine Kinase CK-MB (CK-2) Troponin T NT-Pro-B Natriuret Pep Total Protein Albumin Triglycerides 173 H HDL Cholesterol Folate Urine WBC (Auto) Urine Creatinine Urine Total Protein Vancomycin Trough 05/18/19 05/18/19 05/18/19 01:50 04:41 05:24 WBC RBC Hgb Hct MCV MCH MCHC RDW Plt Count Lymph % (Auto) [place] % (Auto) Eos % (Auto) Lymph # [place] # Eos # Seg Neutrophils % Seg Neuts % (Manual) Lymphocytes % (Manual) Monocytes % (Manual) Eosinophils % (Manual) Nucleated RBC % Seg Neutrophils # Seg Neutrophils # Man Lymphocytes # (Manual) Monocytes # (Manual) Eosinophils # (Manual) PT INR APTT Fibrinogen POC ABG pH 7.260 L ABG pH POC ABG pCO2 54.9 H POC ABG pO2 ABG pO2 ABG HCO3 ABG O2 Saturation ABG Base Excess ABG Hemoglobin Oxyhemoglobin Sodium Potassium 5.6 H Chloride Carbon Dioxide BUN 104 H Creatinine 6.6 H Glucose 107 H POC Glucose 106 H Uric Acid Calcium Phosphorus Magnesium Iron TIBC AST ALT Total Creatine Kinase CK-MB (CK-2) Troponin T NT-Pro-B Natriuret Pep Total Protein Albumin Triglycerides HDL Cholesterol Folate Urine WBC (Auto) Urine Creatinine Urine Total Protein Vancomycin Trough 05/18/19 05/18/19 05/19/19 11:34 23:26 04:06 WBC RBC 3.22 L Hgb 8.8 L Hct 27.3 L MCV MCH 27 L MCHC RDW 17.5 H Plt Count Lymph % (Auto) [place] % (Auto) Eos % (Auto) Lymph # [place] # Eos # Seg Neutrophils % Seg Neuts % (Manual) 74.0 H Lymphocytes % (Manual) 4.0 L Monocytes % (Manual) 11.0 H Eosinophils % (Manual) 7.0 H Nucleated RBC % 1.0 H Seg Neutrophils # Seg Neutrophils # Man Lymphocytes # (Manual) 0.3 L Monocytes # (Manual) 0.9 H Eosinophils # (Manual) 0.6 H PT INR APTT Fibrinogen POC ABG pH ABG pH POC ABG pCO2 POC ABG pO2 ABG pO2 ABG HCO3 ABG O2 Saturation ABG Base Excess ABG Hemoglobin Oxyhemoglobin Sodium Potassium Chloride Carbon Dioxide BUN Creatinine Glucose POC Glucose 152 H 112 H Uric Acid Calcium Phosphorus Magnesium Iron TIBC AST ALT Total Creatine Kinase CK-MB (CK-2) Troponin T NT-Pro-B Natriuret Pep Total Protein Albumin Triglycerides HDL Cholesterol Folate Urine WBC (Auto) Urine Creatinine Urine Total Protein Vancomycin Trough 05/19/19 05/19/19 05/20/19 04:06 06:00 04:00 WBC RBC 3.40 L Hgb 9.2 L Hct 28.6 L MCV MCH 27 L MCHC RDW 17.6 H Plt Count Lymph % (Auto) [place] % (Auto) Eos % (Auto) Lymph # [place] # Eos # Seg Neutrophils % Seg Neuts % (Manual) Lymphocytes % (Manual) 11.0 L Monocytes % (Manual) Eosinophils % (Manual) 14.0 H Nucleated RBC % Seg Neutrophils # Seg Neutrophils # Man Lymphocytes # (Manual) 1.1 L Monocytes # (Manual) Eosinophils # (Manual) 1.4 H PT INR APTT Fibrinogen POC ABG pH ABG pH 7.315 L POC ABG pCO2 POC ABG pO2 ABG pO2 ABG HCO3 ABG O2 Saturation ABG Base Excess ABG Hemoglobin 6.7 L Oxyhemoglobin 94.1 L Sodium Potassium 5.2 H Chloride Carbon Dioxide 21 L BUN 110 H Creatinine 7.2 H Glucose POC Glucose Uric Acid Calcium 8.3 L Phosphorus Magnesium Iron TIBC AST ALT Total Creatine Kinase CK-MB (CK-2) Troponin T NT-Pro-B Natriuret Pep Total Protein Albumin Triglycerides HDL Cholesterol Folate Urine WBC (Auto) Urine Creatinine Urine Total Protein Vancomycin Trough 05/20/19 05/20/19 05/20/19 04:00 05:48 12:00 WBC RBC Hgb Hct MCV MCH MCHC RDW Plt Count Lymph % (Auto) [place] % (Auto) Eos % (Auto) Lymph # [place] # Eos # Seg Neutrophils % Seg Neuts % (Manual) Lymphocytes % (Manual) Monocytes % (Manual) Eosinophils % (Manual) Nucleated RBC % Seg Neutrophils # Seg Neutrophils # Man Lymphocytes # (Manual) Monocytes # (Manual) Eosinophils # (Manual) PT INR APTT Fibrinogen POC ABG pH ABG pH 7.281 L POC ABG pCO2 POC ABG pO2 ABG pO2 78.7 L ABG HCO3 ABG O2 Saturation 94.5 L ABG Base Excess -3.0 L ABG Hemoglobin 9.9 L Oxyhemoglobin 92.5 L Sodium 136 L Potassium 5.7 H Chloride 96.3 L Carbon Dioxide BUN 125 H Creatinine 8.3 H Glucose 106 H POC Glucose Uric Acid Calcium Phosphorus Magnesium Iron TIBC AST ALT Total Creatine Kinase CK-MB (CK-2) Troponin T NT-Pro-B Natriuret Pep Total Protein Albumin Triglycerides HDL Cholesterol Folate Urine WBC (Auto) 26.0 H Urine Creatinine Urine Total Protein Vancomycin Trough 05/21/19 05/21/19 05/21/19 04:33 05:20 Unknown WBC RBC 3.38 L Hgb 9.1 L Hct 28.5 L MCV MCH 27 L MCHC RDW 17.4 H Plt Count Lymph % (Auto) [place] % (Auto) Eos % (Auto) Lymph # [place] # Eos # Seg Neutrophils % Seg Neuts % (Manual) 71.0 H Lymphocytes % (Manual) 1.0 L Monocytes % (Manual) 11.0 H Eosinophils % (Manual) 6.0 H Nucleated RBC % Seg Neutrophils # Seg Neutrophils # Man Lymphocytes # (Manual) 0.1 L Monocytes # (Manual) 1.0 H Eosinophils # (Manual) 0.6 H PT INR APTT Fibrinogen POC ABG pH 7.315 L ABG pH POC ABG pCO2 57.8 H POC ABG pO2 68 L ABG pO2 ABG HCO3 ABG O2 Saturation ABG Base Excess ABG Hemoglobin Oxyhemoglobin Sodium Potassium Chloride 96.3 L Carbon Dioxide BUN 102 H Creatinine 7.0 H Glucose 103 H POC Glucose Uric Acid Calcium Phosphorus Magnesium Iron TIBC AST ALT Total Creatine Kinase CK-MB (CK-2) Troponin T NT-Pro-B Natriuret Pep Total Protein Albumin Triglycerides HDL Cholesterol Folate Urine WBC (Auto) Urine Creatinine Urine Total Protein Vancomycin Trough 05/22/19 05/22/19 05/22/19 03:54 06:25 06:25 WBC RBC 3.22 L Hgb 8.6 L Hct 27.0 L MCV MCH 27 L MCHC RDW 17.5 H Plt Count Lymph % (Auto) [place] % (Auto) 16.2 H Eos % (Auto) 10.8 H Lymph # [place] # 1.3 H Eos # 0.9 H Seg Neutrophils % Seg Neuts % (Manual) Lymphocytes % (Manual) 10.0 L Monocytes % (Manual) 13.0 H Eosinophils % (Manual) 8.0 H Nucleated RBC % Seg Neutrophils # Seg Neutrophils # Man Lymphocytes # (Manual) 0.9 L Monocytes # (Manual) 1.1 H Eosinophils # (Manual) 0.7 H PT INR APTT Fibrinogen POC ABG pH 7.313 L ABG pH POC ABG pCO2 55.0 H POC ABG pO2 ABG pO2 ABG HCO3 ABG O2 Saturation ABG Base Excess ABG Hemoglobin Oxyhemoglobin Sodium 135 L Potassium Chloride 94.3 L Carbon Dioxide BUN 117 H Creatinine 7.8 H Glucose POC Glucose Uric Acid Calcium 8.2 L Phosphorus Magnesium Iron TIBC AST ALT Total Creatine Kinase CK-MB (CK-2) Troponin T NT-Pro-B Natriuret Pep Total Protein Albumin Triglycerides HDL Cholesterol Folate Urine WBC (Auto) Urine Creatinine Urine Total Protein Vancomycin Trough 05/23/19 05/24/19 05/24/19 05:21 05:00 05:00 WBC RBC 3.18 L Hgb 8.5 L Hct 26.7 L MCV MCH 27 L MCHC RDW 17.9 H Plt Count Lymph % (Auto) [place] % (Auto) Eos % (Auto) Lymph # [place] # Eos # Seg Neutrophils % Seg Neuts % (Manual) Lymphocytes % (Manual) Monocytes % (Manual) Eosinophils % (Manual) Nucleated RBC % Seg Neutrophils # Seg Neutrophils # Man Lymphocytes # (Manual) Monocytes # (Manual) Eosinophils # (Manual) PT INR APTT Fibrinogen POC ABG pH ABG pH POC ABG pCO2 49.7 H POC ABG pO2 73 L ABG pO2 ABG HCO3 ABG O2 Saturation ABG Base Excess ABG Hemoglobin Oxyhemoglobin Sodium Potassium Chloride 95.7 L Carbon Dioxide BUN 97 H Creatinine 6.5 H Glucose POC Glucose Uric Acid Calcium 8.0 L Phosphorus Magnesium Iron TIBC AST ALT Total Creatine Kinase CK-MB (CK-2) Troponin T NT-Pro-B Natriuret Pep Total Protein Albumin Triglycerides HDL Cholesterol Folate Urine WBC (Auto) Urine Creatinine Urine Total Protein Vancomycin Trough 05/24/19 05/25/19 05/25/19 06:17 04:22 15:45 WBC RBC 2.98 L Hgb 8.1 L Hct 24.9 L MCV MCH 27 L MCHC RDW 17.8 H Plt Count Lymph % (Auto) [place] % (Auto) Eos % (Auto) Lymph # [place] # Eos # Seg Neutrophils % Seg Neuts % (Manual) Lymphocytes % (Manual) Monocytes % (Manual) Eosinophils % (Manual) Nucleated RBC % Seg Neutrophils # Seg Neutrophils # Man Lymphocytes # (Manual) Monocytes # (Manual) Eosinophils # (Manual) PT INR APTT Fibrinogen POC ABG pH 7.330 L 7.313 L ABG pH POC ABG pCO2 52.5 H 51.1 H POC ABG pO2 77 L ABG pO2 ABG HCO3 ABG O2 Saturation ABG Base Excess ABG Hemoglobin Oxyhemoglobin Sodium Potassium Chloride Carbon Dioxide BUN Creatinine Glucose POC Glucose Uric Acid Calcium Phosphorus Magnesium Iron TIBC AST ALT Total Creatine Kinase CK-MB (CK-2) Troponin T NT-Pro-B Natriuret Pep Total Protein Albumin Triglycerides HDL Cholesterol Folate Urine WBC (Auto) Urine Creatinine Urine Total Protein Vancomycin Trough 05/25/19 05/26/19 05/26/19 15:45 04:13 05:00 WBC RBC 3.10 L Hgb 8.4 L Hct 26.0 L MCV MCH 27 L MCHC RDW 17.4 H Plt Count Lymph % (Auto) [place] % (Auto) Eos % (Auto) Lymph # [place] # Eos # Seg Neutrophils % Seg Neuts % (Manual) Lymphocytes % (Manual) Monocytes % (Manual) Eosinophils % (Manual) Nucleated RBC % Seg Neutrophils # Seg Neutrophils # Man Lymphocytes # (Manual) Monocytes # (Manual) Eosinophils # (Manual) PT INR APTT Fibrinogen POC ABG pH 7.295 L ABG pH POC ABG pCO2 56.5 H POC ABG pO2 63 L ABG pO2 ABG HCO3 ABG O2 Saturation ABG Base Excess ABG Hemoglobin Oxyhemoglobin Sodium 136 L Potassium Chloride 96.8 L Carbon Dioxide BUN 83 H Creatinine 5.9 H Glucose POC Glucose Uric Acid Calcium 7.6 L Phosphorus Magnesium Iron TIBC AST ALT Total Creatine Kinase CK-MB (CK-2) Troponin T NT-Pro-B Natriuret Pep Total Protein Albumin Triglycerides HDL Cholesterol Folate Urine WBC (Auto) Urine Creatinine Urine Total Protein Vancomycin Trough 05/26/19 05/27/19 05/28/19 05:00 04:48 04:47 WBC RBC Hgb Hct MCV MCH MCHC RDW Plt Count Lymph % (Auto) [place] % (Auto) Eos % (Auto) Lymph # [place] # Eos # Seg Neutrophils % Seg Neuts % (Manual) Lymphocytes % (Manual) Monocytes % (Manual) Eosinophils % (Manual) Nucleated RBC % Seg Neutrophils # Seg Neutrophils # Man Lymphocytes # (Manual) Monocytes # (Manual) Eosinophils # (Manual) PT INR APTT Fibrinogen POC ABG pH 7.323 L ABG pH 7.284 L POC ABG pCO2 56.2 H POC ABG pO2 ABG pO2 71.6 L ABG HCO3 ABG O2 Saturation 92.0 L ABG Base Excess ABG Hemoglobin 7.7 L Oxyhemoglobin 89.9 L Sodium 136 L Potassium Chloride 95.3 L Carbon Dioxide BUN 96 H Creatinine 6.5 H Glucose 108 H POC Glucose Uric Acid Calcium 7.6 L Phosphorus Magnesium Iron TIBC AST ALT Total Creatine Kinase CK-MB (CK-2) Troponin T NT-Pro-B Natriuret Pep Total Protein Albumin Triglycerides HDL Cholesterol Folate Urine WBC (Auto) Urine Creatinine Urine Total Protein Vancomycin Trough 05/28/19 05/29/19 05/29/19 12:30 12:47 23:44 WBC RBC Hgb Hct MCV MCH MCHC RDW Plt Count Lymph % (Auto) [place] % (Auto) Eos % (Auto) Lymph # [place] # Eos # Seg Neutrophils % Seg Neuts % (Manual) Lymphocytes % (Manual) Monocytes % (Manual) Eosinophils % (Manual) Nucleated RBC % Seg Neutrophils # Seg Neutrophils # Man Lymphocytes # (Manual) Monocytes # (Manual) Eosinophils # (Manual) PT INR APTT Fibrinogen POC ABG pH ABG pH POC ABG pCO2 POC ABG pO2 ABG pO2 ABG HCO3 ABG O2 Saturation ABG Base Excess ABG Hemoglobin Oxyhemoglobin Sodium 135 L Potassium Chloride 95.3 L Carbon Dioxide BUN 82 H Creatinine 6.0 H Glucose POC Glucose 136 H 159 H Uric Acid Calcium 7.5 L Phosphorus Magnesium Iron TIBC AST ALT Total Creatine Kinase CK-MB (CK-2) Troponin T NT-Pro-B Natriuret Pep Total Protein Albumin Triglycerides HDL Cholesterol Folate Urine WBC (Auto) Urine Creatinine Urine Total Protein Vancomycin Trough 05/30/19 05/30/19 05/30/19 04:30 05:38 12:00 WBC RBC 3.01 L Hgb 8.2 L Hct 25.3 L MCV MCH 27 L MCHC RDW 17.5 H Plt Count Lymph % (Auto) [place] % (Auto) Eos % (Auto) Lymph # [place] # Eos # Seg Neutrophils % Seg Neuts % (Manual) 80.0 H Lymphocytes % (Manual) 10.0 L Monocytes % (Manual) Eosinophils % (Manual) Nucleated RBC % Seg Neutrophils # Seg Neutrophils # Man 8.0 H Lymphocytes # (Manual) 1.0 L Monocytes # (Manual) Eosinophils # (Manual) PT INR APTT Fibrinogen POC ABG pH ABG pH POC ABG pCO2 POC ABG pO2 73 L ABG pO2 ABG HCO3 ABG O2 Saturation ABG Base Excess ABG Hemoglobin Oxyhemoglobin Sodium Potassium Chloride Carbon Dioxide BUN Creatinine Glucose POC Glucose 166 H Uric Acid Calcium Phosphorus Magnesium Iron TIBC AST ALT Total Creatine Kinase CK-MB (CK-2) Troponin T NT-Pro-B Natriuret Pep Total Protein Albumin Triglycerides HDL Cholesterol Folate Urine WBC (Auto) Urine Creatinine Urine Total Protein Vancomycin Trough 05/30/19 05/31/19 05/31/19 23:45 04:07 13:04 WBC 14.3 H RBC 2.88 L Hgb 7.7 L Hct 23.9 L MCV 83 L MCH 27 L MCHC RDW 17.8 H Plt Count Lymph % (Auto) [place] % (Auto) Eos % (Auto) Lymph # [place] # Eos # Seg Neutrophils % Seg Neuts % (Manual) 83.0 H Lymphocytes % (Manual) 11.0 L Monocytes % (Manual) Eosinophils % (Manual) Nucleated RBC % Seg Neutrophils # Seg Neutrophils # Man 11.9 H Lymphocytes # (Manual) Monocytes # (Manual) 0.9 H Eosinophils # (Manual) PT INR APTT Fibrinogen POC ABG pH ABG pH POC ABG pCO2 47.4 H POC ABG pO2 ABG pO2 ABG HCO3 ABG O2 Saturation ABG Base Excess ABG Hemoglobin Oxyhemoglobin Sodium Potassium Chloride Carbon Dioxide BUN Creatinine Glucose POC Glucose 209 H Uric Acid Calcium Phosphorus Magnesium Iron TIBC AST ALT Total Creatine Kinase CK-MB (CK-2) Troponin T NT-Pro-B Natriuret Pep Total Protein Albumin Triglycerides HDL Cholesterol Folate Urine WBC (Auto) Urine Creatinine Urine Total Protein Vancomycin Trough 05/31/19 05/31/19 06/01/19 13:04 16:42 00:15 WBC RBC Hgb Hct MCV MCH MCHC RDW Plt Count Lymph % (Auto) [place] % (Auto) Eos % (Auto) Lymph # [place] # Eos # Seg Neutrophils % Seg Neuts % (Manual) Lymphocytes % (Manual) Monocytes % (Manual) Eosinophils % (Manual) Nucleated RBC % Seg Neutrophils # Seg Neutrophils # Man Lymphocytes # (Manual) Monocytes # (Manual) Eosinophils # (Manual) PT INR APTT Fibrinogen POC ABG pH ABG pH POC ABG pCO2 POC ABG pO2 ABG pO2 ABG HCO3 ABG O2 Saturation ABG Base Excess ABG Hemoglobin Oxyhemoglobin Sodium 129 L Potassium Chloride 88.6 L Carbon Dioxide 19 L BUN 117 H Creatinine 6.7 H Glucose 205 H POC Glucose 228 H 223 H Uric Acid Calcium 7.4 L Phosphorus 7.40 H Magnesium Iron TIBC AST 58 H ALT 149 H Total Creatine Kinase CK-MB (CK-2) Troponin T NT-Pro-B Natriuret Pep Total Protein 6.0 L Albumin 2.5 L Triglycerides HDL Cholesterol Folate Urine WBC (Auto) Urine Creatinine Urine Total Protein Vancomycin Trough 06/01/19 06/01/19 06/01/19 04:33 05:27 12:31 WBC RBC Hgb Hct MCV MCH MCHC RDW Plt Count Lymph % (Auto) [place] % (Auto) Eos % (Auto) Lymph # [place] # Eos # Seg Neutrophils % Seg Neuts % (Manual) Lymphocytes % (Manual) Monocytes % (Manual) Eosinophils % (Manual) Nucleated RBC % Seg Neutrophils # Seg Neutrophils # Man Lymphocytes # (Manual) Monocytes # (Manual) Eosinophils # (Manual) PT INR APTT Fibrinogen POC ABG pH ABG pH POC ABG pCO2 POC ABG pO2 ABG pO2 56.9 L ABG HCO3 ABG O2 Saturation 85.9 L ABG Base Excess ABG Hemoglobin 8.1 L Oxyhemoglobin 83.6 L Sodium Potassium Chloride Carbon Dioxide BUN Creatinine Glucose POC Glucose 183 H 217 H Uric Acid Calcium Phosphorus Magnesium Iron TIBC AST ALT Total Creatine Kinase CK-MB (CK-2) Troponin T NT-Pro-B Natriuret Pep Total Protein Albumin Triglycerides HDL Cholesterol Folate Urine WBC (Auto) Urine Creatinine Urine Total Protein Vancomycin Trough 06/01/19 06/02/19 06/02/19 18:20 00:00 05:33 WBC RBC Hgb Hct MCV MCH MCHC RDW Plt Count Lymph % (Auto) [place] % (Auto) Eos % (Auto) Lymph # [place] # Eos # Seg Neutrophils % Seg Neuts % (Manual) Lymphocytes % (Manual) Monocytes % (Manual) Eosinophils % (Manual) Nucleated RBC % Seg Neutrophils # Seg Neutrophils # Man Lymphocytes # (Manual) Monocytes # (Manual) Eosinophils # (Manual) PT INR APTT Fibrinogen POC ABG pH ABG pH POC ABG pCO2 POC ABG pO2 ABG pO2 ABG HCO3 ABG O2 Saturation ABG Base Excess ABG Hemoglobin Oxyhemoglobin Sodium Potassium Chloride Carbon Dioxide BUN Creatinine Glucose POC Glucose 265 H 279 H 259 H Uric Acid Calcium Phosphorus Magnesium Iron TIBC AST ALT Total Creatine Kinase CK-MB (CK-2) Troponin T NT-Pro-B Natriuret Pep Total Protein Albumin Triglycerides HDL Cholesterol Folate Urine WBC (Auto) Urine Creatinine Urine Total Protein Vancomycin Trough 06/02/19 06/02/19 06/02/19 11:06 11:06 11:42 WBC 13.1 H RBC 2.92 L Hgb 7.9 L Hct 24.4 L MCV MCH 27 L MCHC RDW 17.4 H Plt Count Lymph % (Auto) [place] % (Auto) Eos % (Auto) Lymph # [place] # Eos # Seg Neutrophils % Seg Neuts % (Manual) 78.0 H Lymphocytes % (Manual) 12.0 L Monocytes % (Manual) 10.0 H Eosinophils % (Manual) Nucleated RBC % Seg Neutrophils # Seg Neutrophils # Man 10.2 H Lymphocytes # (Manual) Monocytes # (Manual) 1.3 H Eosinophils # (Manual) PT INR APTT Fibrinogen POC ABG pH ABG pH POC ABG pCO2 POC ABG pO2 ABG pO2 ABG HCO3 ABG O2 Saturation ABG Base Excess ABG Hemoglobin Oxyhemoglobin Sodium 135 L Potassium Chloride 94.7 L Carbon Dioxide 21 L BUN 107 H Creatinine 4.5 H Glucose 286 H POC Glucose 263 H Uric Acid Calcium 7.9 L Phosphorus 6.30 H Magnesium Iron TIBC AST ALT 104 H Total Creatine Kinase CK-MB (CK-2) Troponin T NT-Pro-B Natriuret Pep Total Protein 6.0 L Albumin 2.7 L Triglycerides HDL Cholesterol Folate Urine WBC (Auto) Urine Creatinine Urine Total Protein Vancomycin Trough 06/02/19 06/02/19 06/03/19 18:17 23:55 05:30 WBC RBC Hgb Hct MCV MCH MCHC RDW Plt Count Lymph % (Auto) [place] % (Auto) Eos % (Auto) Lymph # [place] # Eos # Seg Neutrophils % Seg Neuts % (Manual) Lymphocytes % (Manual) Monocytes % (Manual) Eosinophils % (Manual) Nucleated RBC % Seg Neutrophils # Seg Neutrophils # Man Lymphocytes # (Manual) Monocytes # (Manual) Eosinophils # (Manual) PT INR APTT Fibrinogen POC ABG pH ABG pH POC ABG pCO2 POC ABG pO2 ABG pO2 ABG HCO3 ABG O2 Saturation ABG Base Excess ABG Hemoglobin Oxyhemoglobin Sodium Potassium Chloride 95.1 L Carbon Dioxide 21 L BUN 119 H Creatinine 4.1 H Glucose 330 H POC Glucose 276 H 244 H Uric Acid Calcium 8.1 L Phosphorus Magnesium Iron TIBC AST ALT 98 H Total Creatine Kinase CK-MB (CK-2) Troponin T NT-Pro-B Natriuret Pep Total Protein 5.8 L Albumin 2.8 L Triglycerides HDL Cholesterol Folate Urine WBC (Auto) Urine Creatinine Urine Total Protein Vancomycin Trough 06/03/19 06/03/19 06/03/19 05:30 06:04 09:42 WBC 12.8 H RBC 3.01 L Hgb 8.2 L Hct 25.4 L MCV MCH 27 L MCHC RDW 17.5 H Plt Count Lymph % (Auto) [place] % (Auto) Eos % (Auto) Lymph # [place] # Eos # Seg Neutrophils % Seg Neuts % (Manual) 78.0 H Lymphocytes % (Manual) 10.0 L Monocytes % (Manual) 12.0 H Eosinophils % (Manual) Nucleated RBC % Seg Neutrophils # Seg Neutrophils # Man 10.0 H Lymphocytes # (Manual) Monocytes # (Manual) 1.5 H Eosinophils # (Manual) PT INR APTT Fibrinogen POC ABG pH ABG pH POC ABG pCO2 POC ABG pO2 ABG pO2 ABG HCO3 ABG O2 Saturation ABG Base Excess ABG Hemoglobin Oxyhemoglobin Sodium Potassium Chloride Carbon Dioxide BUN 106 H Creatinine Glucose POC Glucose 254 H Uric Acid Calcium Phosphorus Magnesium Iron TIBC AST ALT Total Creatine Kinase CK-MB (CK-2) Troponin T NT-Pro-B Natriuret Pep Total Protein Albumin Triglycerides HDL Cholesterol Folate Urine WBC (Auto) Urine Creatinine Urine Total Protein Vancomycin Trough 06/03/19 06/03/19 06/03/19 12:52 17:25 23:37 WBC RBC Hgb Hct MCV MCH MCHC RDW Plt Count Lymph % (Auto) [place] % (Auto) Eos % (Auto) Lymph # [place] # Eos # Seg Neutrophils % Seg Neuts % (Manual) Lymphocytes % (Manual) Monocytes % (Manual) Eosinophils % (Manual) Nucleated RBC % Seg Neutrophils # Seg Neutrophils # Man Lymphocytes # (Manual) Monocytes # (Manual) Eosinophils # (Manual) PT INR APTT Fibrinogen POC ABG pH ABG pH POC ABG pCO2 POC ABG pO2 ABG pO2 ABG HCO3 ABG O2 Saturation ABG Base Excess ABG Hemoglobin Oxyhemoglobin Sodium Potassium Chloride Carbon Dioxide BUN Creatinine Glucose POC Glucose 274 H 285 H 310 H Uric Acid Calcium Phosphorus Magnesium Iron TIBC AST ALT Total Creatine Kinase CK-MB (CK-2) Troponin T NT-Pro-B Natriuret Pep Total Protein Albumin Triglycerides HDL Cholesterol Folate Urine WBC (Auto) Urine Creatinine Urine Total Protein Vancomycin Trough 06/04/19 06/04/19 06/04/19 04:57 05:03 11:50 WBC RBC Hgb Hct MCV MCH MCHC RDW Plt Count Lymph % (Auto) [place] % (Auto) Eos % (Auto) Lymph # [place] # Eos # Seg Neutrophils % Seg Neuts % (Manual) Lymphocytes % (Manual) Monocytes % (Manual) Eosinophils % (Manual) Nucleated RBC % Seg Neutrophils # Seg Neutrophils # Man Lymphocytes # (Manual) Monocytes # (Manual) Eosinophils # (Manual) PT INR APTT Fibrinogen POC ABG pH 7.488 H ABG pH POC ABG pCO2 POC ABG pO2 ABG pO2 ABG HCO3 ABG O2 Saturation ABG Base Excess ABG Hemoglobin Oxyhemoglobin Sodium Potassium Chloride Carbon Dioxide BUN Creatinine Glucose POC Glucose 275 H 279 H Uric Acid Calcium Phosphorus Magnesium Iron TIBC AST ALT Total Creatine Kinase CK-MB (CK-2) Troponin T NT-Pro-B Natriuret Pep Total Protein Albumin Triglycerides HDL Cholesterol Folate Urine WBC (Auto) Urine Creatinine Urine Total Protein Vancomycin Trough 06/04/19 06/04/19 06/04/19 18:32 22:03 23:55 WBC RBC Hgb Hct MCV MCH MCHC RDW Plt Count Lymph % (Auto) [place] % (Auto) Eos % (Auto) Lymph # [place] # Eos # Seg Neutrophils % Seg Neuts % (Manual) Lymphocytes % (Manual) Monocytes % (Manual) Eosinophils % (Manual) Nucleated RBC % Seg Neutrophils # Seg Neutrophils # Man Lymphocytes # (Manual) Monocytes # (Manual) Eosinophils # (Manual) PT INR APTT Fibrinogen POC ABG pH ABG pH POC ABG pCO2 POC ABG pO2 ABG pO2 ABG HCO3 ABG O2 Saturation ABG Base Excess ABG Hemoglobin Oxyhemoglobin Sodium Potassium Chloride Carbon Dioxide BUN Creatinine Glucose POC Glucose 267 H 307 H 292 H Uric Acid Calcium Phosphorus Magnesium Iron TIBC AST ALT Total Creatine Kinase CK-MB (CK-2) Troponin T NT-Pro-B Natriuret Pep Total Protein Albumin Triglycerides HDL Cholesterol Folate Urine WBC (Auto) Urine Creatinine Urine Total Protein Vancomycin Trough 06/05/19 06/05/19 06/05/19 03:52 06:41 12:29 WBC RBC Hgb Hct MCV MCH MCHC RDW Plt Count Lymph % (Auto) [place] % (Auto) Eos % (Auto) Lymph # [place] # Eos # Seg Neutrophils % Seg Neuts % (Manual) Lymphocytes % (Manual) Monocytes % (Manual) Eosinophils % (Manual) Nucleated RBC % Seg Neutrophils # Seg Neutrophils # Man Lymphocytes # (Manual) Monocytes # (Manual) Eosinophils # (Manual) PT INR APTT Fibrinogen POC ABG pH 7.462 H ABG pH POC ABG pCO2 POC ABG pO2 ABG pO2 ABG HCO3 ABG O2 Saturation ABG Base Excess ABG Hemoglobin Oxyhemoglobin Sodium Potassium Chloride Carbon Dioxide BUN Creatinine Glucose POC Glucose 369 H 265 H Uric Acid Calcium Phosphorus Magnesium Iron TIBC AST ALT Total Creatine Kinase CK-MB (CK-2) Troponin T NT-Pro-B Natriuret Pep Total Protein Albumin Triglycerides HDL Cholesterol Folate Urine WBC (Auto) Urine Creatinine Urine Total Protein Vancomycin Trough 06/05/19 06/05/19 06/05/19 18:20 21:42 23:21 WBC RBC Hgb Hct MCV MCH MCHC RDW Plt Count Lymph % (Auto) [place] % (Auto) Eos % (Auto) Lymph # [place] # Eos # Seg Neutrophils % Seg Neuts % (Manual) Lymphocytes % (Manual) Monocytes % (Manual) Eosinophils % (Manual) Nucleated RBC % Seg Neutrophils # Seg Neutrophils # Man Lymphocytes # (Manual) Monocytes # (Manual) Eosinophils # (Manual) PT INR APTT Fibrinogen POC ABG pH ABG pH POC ABG pCO2 POC ABG pO2 ABG pO2 ABG HCO3 ABG O2 Saturation ABG Base Excess ABG Hemoglobin Oxyhemoglobin Sodium Potassium Chloride Carbon Dioxide BUN Creatinine Glucose POC Glucose 249 H 246 H 274 H Uric Acid Calcium Phosphorus Magnesium Iron TIBC AST ALT Total Creatine Kinase CK-MB (CK-2) Troponin T NT-Pro-B Natriuret Pep Total Protein Albumin Triglycerides HDL Cholesterol Folate Urine WBC (Auto) Urine Creatinine Urine Total Protein Vancomycin Trough 06/06/19 06/06/19 06/06/19 04:00 05:49 11:34 WBC 18.1 H RBC 3.53 L Hgb 9.5 L Hct 30.3 L MCV MCH 27 L MCHC 31 L RDW 19.5 H Plt Count Lymph % (Auto) [place] % (Auto) Eos % (Auto) Lymph # [place] # Eos # Seg Neutrophils % Seg Neuts % (Manual) 87.0 H Lymphocytes % (Manual) 3.0 L Monocytes % (Manual) 8.0 H Eosinophils % (Manual) Nucleated RBC % Seg Neutrophils # Seg Neutrophils # Man 15.7 H Lymphocytes # (Manual) 0.5 L Monocytes # (Manual) 1.4 H Eosinophils # (Manual) PT INR APTT Fibrinogen POC ABG pH ABG pH 7.472 H POC ABG pCO2 POC ABG pO2 ABG pO2 76.4 L ABG HCO3 28.1 H ABG O2 Saturation ABG Base Excess 4.3 H ABG Hemoglobin 12.5 L Oxyhemoglobin 93.8 L Sodium Potassium Chloride Carbon Dioxide BUN Creatinine Glucose POC Glucose 340 H Uric Acid Calcium Phosphorus Magnesium Iron TIBC AST ALT Total Creatine Kinase CK-MB (CK-2) Troponin T NT-Pro-B Natriuret Pep Total Protein Albumin Triglycerides HDL Cholesterol Folate Urine WBC (Auto) Urine Creatinine Urine Total Protein Vancomycin Trough 06/06/19 06/06/19 06/06/19 11:34 12:11 18:10 WBC RBC Hgb Hct MCV MCH MCHC RDW Plt Count Lymph % (Auto) [place] % (Auto) Eos % (Auto) Lymph # [place] # Eos # Seg Neutrophils % Seg Neuts % (Manual) Lymphocytes % (Manual) Monocytes % (Manual) Eosinophils % (Manual) Nucleated RBC % Seg Neutrophils # Seg Neutrophils # Man Lymphocytes # (Manual) Monocytes # (Manual) Eosinophils # (Manual) PT INR APTT Fibrinogen POC ABG pH ABG pH POC ABG pCO2 POC ABG pO2 ABG pO2 ABG HCO3 ABG O2 Saturation ABG Base Excess ABG Hemoglobin Oxyhemoglobin Sodium Potassium Chloride Carbon Dioxide BUN 70 H Creatinine Glucose 310 H POC Glucose 283 H 301 H Uric Acid Calcium 8.3 L Phosphorus 4.60 H Magnesium Iron TIBC AST ALT 75 H Total Creatine Kinase CK-MB (CK-2) Troponin T NT-Pro-B Natriuret Pep Total Protein 5.6 L Albumin 2.9 L Triglycerides HDL Cholesterol Folate Urine WBC (Auto) Urine Creatinine Urine Total Protein Vancomycin Trough 06/06/19 06/06/19 06/07/19 22:21 23:16 04:30 WBC RBC Hgb Hct MCV MCH MCHC RDW Plt Count Lymph % (Auto) [place] % (Auto) Eos % (Auto) Lymph # [place] # Eos # Seg Neutrophils % Seg Neuts % (Manual) Lymphocytes % (Manual) Monocytes % (Manual) Eosinophils % (Manual) Nucleated RBC % Seg Neutrophils # Seg Neutrophils # Man Lymphocytes # (Manual) Monocytes # (Manual) Eosinophils # (Manual) PT INR APTT Fibrinogen POC ABG pH ABG pH 7.480 H POC ABG pCO2 POC ABG pO2 ABG pO2 77.0 L ABG HCO3 27.2 H ABG O2 Saturation ABG Base Excess 3.5 H ABG Hemoglobin 7.1 L Oxyhemoglobin 94.2 L Sodium Potassium Chloride Carbon Dioxide BUN Creatinine Glucose POC Glucose 289 H 343 H Uric Acid Calcium Phosphorus Magnesium Iron TIBC AST ALT Total Creatine Kinase CK-MB (CK-2) Troponin T NT-Pro-B Natriuret Pep Total Protein Albumin Triglycerides HDL Cholesterol Folate Urine WBC (Auto) Urine Creatinine Urine Total Protein Vancomycin Trough 06/07/19 06/07/19 06/07/19 05:15 12:52 18:41 WBC RBC Hgb Hct MCV MCH MCHC RDW Plt Count Lymph % (Auto) [place] % (Auto) Eos % (Auto) Lymph # [place] # Eos # Seg Neutrophils % Seg Neuts % (Manual) Lymphocytes % (Manual) Monocytes % (Manual) Eosinophils % (Manual) Nucleated RBC % Seg Neutrophils # Seg Neutrophils # Man Lymphocytes # (Manual) Monocytes # (Manual) Eosinophils # (Manual) PT INR APTT Fibrinogen POC ABG pH ABG pH POC ABG pCO2 POC ABG pO2 ABG pO2 ABG HCO3 ABG O2 Saturation ABG Base Excess ABG Hemoglobin Oxyhemoglobin Sodium Potassium Chloride Carbon Dioxide BUN Creatinine Glucose POC Glucose 307 H 226 H 187 H Uric Acid Calcium Phosphorus Magnesium Iron TIBC AST ALT Total Creatine Kinase CK-MB (CK-2) Troponin T NT-Pro-B Natriuret Pep Total Protein Albumin Triglycerides HDL Cholesterol Folate Urine WBC (Auto) Urine Creatinine Urine Total Protein Vancomycin Trough 06/07/19 06/07/19 06/08/19 22:54 23:46 04:20 WBC 16.0 H RBC Hgb 10.0 L Hct 32.1 L MCV MCH 27 L MCHC 31 L RDW 19.4 H Plt Count Lymph % (Auto) [place] % (Auto) Eos % (Auto) Lymph # [place] # Eos # Seg Neutrophils % Seg Neuts % (Manual) 87.0 H Lymphocytes % (Manual) 7.0 L Monocytes % (Manual) Eosinophils % (Manual) Nucleated RBC % Seg Neutrophils # Seg Neutrophils # Man 13.9 H Lymphocytes # (Manual) 1.1 L Monocytes # (Manual) 1.0 H Eosinophils # (Manual) PT INR APTT Fibrinogen POC ABG pH ABG pH POC ABG pCO2 POC ABG pO2 ABG pO2 ABG HCO3 ABG O2 Saturation ABG Base Excess ABG Hemoglobin Oxyhemoglobin Sodium Potassium Chloride Carbon Dioxide BUN Creatinine Glucose POC Glucose 199 H 172 H Uric Acid Calcium Phosphorus Magnesium Iron TIBC AST ALT Total Creatine Kinase CK-MB (CK-2) Troponin T NT-Pro-B Natriuret Pep Total Protein Albumin Triglycerides HDL Cholesterol Folate Urine WBC (Auto) Urine Creatinine Urine Total Protein Vancomycin Trough 06/08/19 06/08/19 06/08/19 04:20 05:15 11:31 WBC RBC Hgb Hct MCV MCH MCHC RDW Plt Count Lymph % (Auto) [place] % (Auto) Eos % (Auto) Lymph # [place] # Eos # Seg Neutrophils % Seg Neuts % (Manual) Lymphocytes % (Manual) Monocytes % (Manual) Eosinophils % (Manual) Nucleated RBC % Seg Neutrophils # Seg Neutrophils # Man Lymphocytes # (Manual) Monocytes # (Manual) Eosinophils # (Manual) PT INR APTT Fibrinogen POC ABG pH ABG pH POC ABG pCO2 POC ABG pO2 ABG pO2 ABG HCO3 ABG O2 Saturation ABG Base Excess ABG Hemoglobin Oxyhemoglobin Sodium 146 H D Potassium Chloride Carbon Dioxide BUN 77 H Creatinine Glucose 205 H POC Glucose 209 H 181 H Uric Acid Calcium Phosphorus Magnesium Iron TIBC AST ALT 66 H Total Creatine Kinase CK-MB (CK-2) Troponin T NT-Pro-B Natriuret Pep Total Protein 5.5 L Albumin 2.9 L Triglycerides HDL Cholesterol Folate Urine WBC (Auto) Urine Creatinine Urine Total Protein Vancomycin Trough 06/08/19 06/08/19 06/09/19 17:28 23:24 05:20 WBC RBC Hgb Hct MCV MCH MCHC RDW Plt Count Lymph % (Auto) [place] % (Auto) Eos % (Auto) Lymph # [place] # Eos # Seg Neutrophils % Seg Neuts % (Manual) Lymphocytes % (Manual) Monocytes % (Manual) Eosinophils % (Manual) Nucleated RBC % Seg Neutrophils # Seg Neutrophils # Man Lymphocytes # (Manual) Monocytes # (Manual) Eosinophils # (Manual) PT INR APTT Fibrinogen POC ABG pH ABG pH POC ABG pCO2 POC ABG pO2 ABG pO2 ABG HCO3 ABG O2 Saturation ABG Base Excess ABG Hemoglobin Oxyhemoglobin Sodium Potassium Chloride Carbon Dioxide BUN Creatinine Glucose POC Glucose 215 H 200 H 173 H Uric Acid Calcium Phosphorus Magnesium Iron TIBC AST ALT Total Creatine Kinase CK-MB (CK-2) Troponin T NT-Pro-B Natriuret Pep Total Protein Albumin Triglycerides HDL Cholesterol Folate Urine WBC (Auto) Urine Creatinine Urine Total Protein Vancomycin Trough 06/09/19 06/09/19 06/09/19 12:07 18:32 23:51 WBC RBC Hgb Hct MCV MCH MCHC RDW Plt Count Lymph % (Auto) [place] % (Auto) Eos % (Auto) Lymph # [place] # Eos # Seg Neutrophils % Seg Neuts % (Manual) Lymphocytes % (Manual) Monocytes % (Manual) Eosinophils % (Manual) Nucleated RBC % Seg Neutrophils # Seg Neutrophils # Man Lymphocytes # (Manual) Monocytes # (Manual) Eosinophils # (Manual) PT INR APTT Fibrinogen POC ABG pH ABG pH POC ABG pCO2 POC ABG pO2 ABG pO2 ABG HCO3 ABG O2 Saturation ABG Base Excess ABG Hemoglobin Oxyhemoglobin Sodium Potassium Chloride Carbon Dioxide BUN Creatinine Glucose POC Glucose 117 H 169 H 147 H Uric Acid Calcium Phosphorus Magnesium Iron TIBC AST ALT Total Creatine Kinase CK-MB (CK-2) Troponin T NT-Pro-B Natriuret Pep Total Protein Albumin Triglycerides HDL Cholesterol Folate Urine WBC (Auto) Urine Creatinine Urine Total Protein Vancomycin Trough 06/10/19 06/10/19 06/10/19 05:45 05:45 06:01 WBC 14.6 H RBC Hgb 9.9 L Hct 32.2 L MCV MCH 27 L MCHC 31 L RDW 19.6 H Plt Count Lymph % (Auto) 10.5 L [place] % (Auto) 9.4 H Eos % (Auto) Lymph # [place] # 1.4 H Eos # Seg Neutrophils % 79.9 H Seg Neuts % (Manual) Lymphocytes % (Manual) Monocytes % (Manual) Eosinophils % (Manual) Nucleated RBC % Seg Neutrophils # 11.7 H Seg Neutrophils # Man Lymphocytes # (Manual) Monocytes # (Manual) Eosinophils # (Manual) PT INR APTT Fibrinogen POC ABG pH ABG pH POC ABG pCO2 POC ABG pO2 ABG pO2 ABG HCO3 ABG O2 Saturation ABG Base Excess ABG Hemoglobin Oxyhemoglobin Sodium 150 H Potassium Chloride 108.3 H Carbon Dioxide BUN 49 H Creatinine Glucose 172 H POC Glucose 165 H Uric Acid Calcium Phosphorus Magnesium 1.40 L Iron TIBC AST ALT Total Creatine Kinase CK-MB (CK-2) Troponin T NT-Pro-B Natriuret Pep Total Protein Albumin Triglycerides HDL Cholesterol Folate Urine WBC (Auto) Urine Creatinine Urine Total Protein Vancomycin Trough 06/10/19 06/10/1920 12:11 18:30 00:02 WBC RBC Hgb Hct MCV MCH MCHC RDW Plt Count Lymph % (Auto) [place] % (Auto) Eos % (Auto) Lymph # [place] # Eos # Seg Neutrophils % Seg Neuts % (Manual) Lymphocytes % (Manual) Monocytes % (Manual) Eosinophils % (Manual) Nucleated RBC % Seg Neutrophils # Seg Neutrophils # Man Lymphocytes # (Manual) Monocytes # (Manual) Eosinophils # (Manual) PT INR APTT Fibrinogen POC ABG pH ABG pH POC ABG pCO2 POC ABG pO2 ABG pO2 ABG HCO3 ABG O2 Saturation ABG Base Excess ABG Hemoglobin Oxyhemoglobin Sodium Potassium Chloride Carbon Dioxide BUN Creatinine Glucose POC Glucose 150 H 154 H 130 H Uric Acid Calcium Phosphorus Magnesium Iron TIBC AST ALT Total Creatine Kinase CK-MB (CK-2) Troponin T NT-Pro-B Natriuret Pep Total Protein Albumin Triglycerides HDL Cholesterol Folate Urine WBC (Auto) Urine Creatinine Urine Total Protein Vancomycin Trough 06/11/19 06/11/19 06/11/19 05:33 08:34 12:33 WBC RBC Hgb Hct MCV MCH MCHC RDW Plt Count Lymph % (Auto) [place] % (Auto) Eos % (Auto) Lymph # [place] # Eos # Seg Neutrophils % Seg Neuts % (Manual) Lymphocytes % (Manual) Monocytes % (Manual) Eosinophils % (Manual) Nucleated RBC % Seg Neutrophils # Seg Neutrophils # Man Lymphocytes # (Manual) Monocytes # (Manual) Eosinophils # (Manual) PT INR APTT Fibrinogen POC ABG pH ABG pH POC ABG pCO2 POC ABG pO2 ABG pO2 ABG HCO3 ABG O2 Saturation ABG Base Excess ABG Hemoglobin Oxyhemoglobin Sodium 154 H Potassium Chloride 111.6 H Carbon Dioxide BUN 41 H Creatinine Glucose 147 H POC Glucose 183 H 185 H Uric Acid Calcium Phosphorus Magnesium Iron TIBC AST ALT Total Creatine Kinase CK-MB (CK-2) Troponin T NT-Pro-B Natriuret Pep Total Protein Albumin Triglycerides HDL Cholesterol Folate Urine WBC (Auto) Urine Creatinine Urine Total Protein Vancomycin Trough 06/11/19 06/11/19 06/12/19 18:22 23:46 03:21 WBC 11.9 H RBC 3.61 L Hgb 9.9 L Hct 31.7 L MCV MCH 27 L MCHC 31 L RDW 19.3 H Plt Count Lymph % (Auto) 10.6 L [place] % (Auto) 8.6 H Eos % (Auto) Lymph # [place] # 1.0 H Eos # Seg Neutrophils % 80.6 H Seg Neuts % (Manual) Lymphocytes % (Manual) Monocytes % (Manual) Eosinophils % (Manual) Nucleated RBC % Seg Neutrophils # 9.6 H Seg Neutrophils # Man Lymphocytes # (Manual) Monocytes # (Manual) Eosinophils # (Manual) PT INR APTT Fibrinogen POC ABG pH ABG pH POC ABG pCO2 POC ABG pO2 ABG pO2 ABG HCO3 ABG O2 Saturation ABG Base Excess ABG Hemoglobin Oxyhemoglobin Sodium Potassium Chloride Carbon Dioxide BUN Creatinine Glucose POC Glucose 158 H 182 H Uric Acid Calcium Phosphorus Magnesium Iron TIBC AST ALT Total Creatine Kinase CK-MB (CK-2) Troponin T NT-Pro-B Natriuret Pep Total Protein Albumin Triglycerides HDL Cholesterol Folate Urine WBC (Auto) Urine Creatinine Urine Total Protein Vancomycin Trough 06/12/19 06/12/19 06/12/19 03:21 06:04 11:28 WBC RBC Hgb Hct MCV MCH MCHC RDW Plt Count Lymph % (Auto) [place] % (Auto) Eos % (Auto) Lymph # [place] # Eos # Seg Neutrophils % Seg Neuts % (Manual) Lymphocytes % (Manual) Monocytes % (Manual) Eosinophils % (Manual) Nucleated RBC % Seg Neutrophils # Seg Neutrophils # Man Lymphocytes # (Manual) Monocytes # (Manual) Eosinophils # (Manual) PT INR APTT Fibrinogen POC ABG pH ABG pH POC ABG pCO2 POC ABG pO2 ABG pO2 ABG HCO3 ABG O2 Saturation ABG Base Excess ABG Hemoglobin Oxyhemoglobin Sodium 148 H Potassium Chloride 107.3 H Carbon Dioxide BUN 34 H Creatinine 0.7 L Glucose 194 H POC Glucose 133 H 167 H Uric Acid Calcium Phosphorus Magnesium 1.40 L Iron TIBC AST ALT Total Creatine Kinase CK-MB (CK-2) Troponin T NT-Pro-B Natriuret Pep Total Protein Albumin Triglycerides HDL Cholesterol Folate Urine WBC (Auto) Urine Creatinine Urine Total Protein Vancomycin Trough 06/12/19 06/12/19 06/13/19 18:47 21:27 00:04 WBC RBC Hgb Hct MCV MCH MCHC RDW Plt Count Lymph % (Auto) [place] % (Auto) Eos % (Auto) Lymph # [place] # Eos # Seg Neutrophils % Seg Neuts % (Manual) Lymphocytes % (Manual) Monocytes % (Manual) Eosinophils % (Manual) Nucleated RBC % Seg Neutrophils # Seg Neutrophils # Man Lymphocytes # (Manual) Monocytes # (Manual) Eosinophils # (Manual) PT INR APTT Fibrinogen POC ABG pH ABG pH POC ABG pCO2 POC ABG pO2 ABG pO2 ABG HCO3 ABG O2 Saturation ABG Base Excess ABG Hemoglobin Oxyhemoglobin Sodium Potassium Chloride Carbon Dioxide BUN Creatinine Glucose POC Glucose 210 H 263 H 248 H Uric Acid Calcium Phosphorus Magnesium Iron TIBC AST ALT Total Creatine Kinase CK-MB (CK-2) Troponin T NT-Pro-B Natriuret Pep Total Protein Albumin Triglycerides HDL Cholesterol Folate Urine WBC (Auto) Urine Creatinine Urine Total Protein Vancomycin Trough 06/13/19 06/13/19 06/13/19 04:32 05:46 13:30 WBC RBC Hgb Hct MCV MCH MCHC RDW Plt Count Lymph % (Auto) [place] % (Auto) Eos % (Auto) Lymph # [place] # Eos # Seg Neutrophils % Seg Neuts % (Manual) Lymphocytes % (Manual) Monocytes % (Manual) Eosinophils % (Manual) Nucleated RBC % Seg Neutrophils # Seg Neutrophils # Man Lymphocytes # (Manual) Monocytes # (Manual) Eosinophils # (Manual) PT INR APTT Fibrinogen POC ABG pH ABG pH POC ABG pCO2 POC ABG pO2 ABG pO2 ABG HCO3 ABG O2 Saturation ABG Base Excess ABG Hemoglobin Oxyhemoglobin Sodium Potassium Chloride Carbon Dioxide BUN 27 H Creatinine 0.7 L Glucose 253 H POC Glucose 201 H 241 H Uric Acid Calcium Phosphorus Magnesium Iron TIBC AST ALT Total Creatine Kinase CK-MB (CK-2) Troponin T NT-Pro-B Natriuret Pep Total Protein Albumin Triglycerides HDL Cholesterol Folate Urine WBC (Auto) Urine Creatinine Urine Total Protein Vancomycin Trough 06/13/19 06/13/19 06/14/19 17:33 23:49 04:50 WBC RBC Hgb Hct MCV MCH MCHC RDW Plt Count Lymph % (Auto) [place] % (Auto) Eos % (Auto) Lymph # [place] # Eos # Seg Neutrophils % Seg Neuts % (Manual) Lymphocytes % (Manual) Monocytes % (Manual) Eosinophils % (Manual) Nucleated RBC % Seg Neutrophils # Seg Neutrophils # Man Lymphocytes # (Manual) Monocytes # (Manual) Eosinophils # (Manual) PT INR APTT Fibrinogen POC ABG pH ABG pH POC ABG pCO2 POC ABG pO2 ABG pO2 ABG HCO3 ABG O2 Saturation ABG Base Excess ABG Hemoglobin Oxyhemoglobin Sodium Potassium Chloride Carbon Dioxide BUN 37 H Creatinine Glucose 256 H POC Glucose 264 H 236 H Uric Acid Calcium Phosphorus Magnesium Iron TIBC AST ALT Total Creatine Kinase CK-MB (CK-2) Troponin T NT-Pro-B Natriuret Pep Total Protein Albumin Triglycerides HDL Cholesterol Folate Urine WBC (Auto) Urine Creatinine Urine Total Protein Vancomycin Trough 06/14/19 06/14/19 06/14/19 05:26 12:31 18:32 WBC RBC Hgb Hct MCV MCH MCHC RDW Plt Count Lymph % (Auto) [place] % (Auto) Eos % (Auto) Lymph # [place] # Eos # Seg Neutrophils % Seg Neuts % (Manual) Lymphocytes % (Manual) Monocytes % (Manual) Eosinophils % (Manual) Nucleated RBC % Seg Neutrophils # Seg Neutrophils # Man Lymphocytes # (Manual) Monocytes # (Manual) Eosinophils # (Manual) PT INR APTT Fibrinogen POC ABG pH ABG pH POC ABG pCO2 POC ABG pO2 ABG pO2 ABG HCO3 ABG O2 Saturation ABG Base Excess ABG Hemoglobin Oxyhemoglobin Sodium Potassium Chloride Carbon Dioxide BUN Creatinine Glucose POC Glucose 239 H 116 H 247 H Uric Acid Calcium Phosphorus Magnesium Iron TIBC AST ALT Total Creatine Kinase CK-MB (CK-2) Troponin T NT-Pro-B Natriuret Pep Total Protein Albumin Triglycerides HDL Cholesterol Folate Urine WBC (Auto) Urine Creatinine Urine Total Protein Vancomycin Trough 06/14/19 06/15/19 06/15/19 23:57 04:05 05:55 WBC RBC Hgb Hct MCV MCH MCHC RDW Plt Count Lymph % (Auto) [place] % (Auto) Eos % (Auto) Lymph # [place] # Eos # Seg Neutrophils % Seg Neuts % (Manual) Lymphocytes % (Manual) Monocytes % (Manual) Eosinophils % (Manual) Nucleated RBC % Seg Neutrophils # Seg Neutrophils # Man Lymphocytes # (Manual) Monocytes # (Manual) Eosinophils # (Manual) PT INR APTT Fibrinogen POC ABG pH ABG pH POC ABG pCO2 POC ABG pO2 ABG pO2 ABG HCO3 ABG O2 Saturation ABG Base Excess ABG Hemoglobin Oxyhemoglobin Sodium Potassium Chloride Carbon Dioxide BUN 46 H Creatinine 0.7 L Glucose 265 H POC Glucose 206 H 265 H Uric Acid Calcium Phosphorus Magnesium Iron TIBC AST ALT Total Creatine Kinase CK-MB (CK-2) Troponin T NT-Pro-B Natriuret Pep Total Protein Albumin Triglycerides HDL Cholesterol Folate Urine WBC (Auto) Urine Creatinine Urine Total Protein Vancomycin Trough 06/15/19 06/15/19 06/15/19 12:08 18:45 23:41 WBC RBC Hgb Hct MCV MCH MCHC RDW Plt Count Lymph % (Auto) [place] % (Auto) Eos % (Auto) Lymph # [place] # Eos # Seg Neutrophils % Seg Neuts % (Manual) Lymphocytes % (Manual) Monocytes % (Manual) Eosinophils % (Manual) Nucleated RBC % Seg Neutrophils # Seg Neutrophils # Man Lymphocytes # (Manual) Monocytes # (Manual) Eosinophils # (Manual) PT INR APTT Fibrinogen POC ABG pH ABG pH POC ABG pCO2 POC ABG pO2 ABG pO2 ABG HCO3 ABG O2 Saturation ABG Base Excess ABG Hemoglobin Oxyhemoglobin Sodium Potassium Chloride Carbon Dioxide BUN Creatinine Glucose POC Glucose 224 H 177 H 193 H Uric Acid Calcium Phosphorus Magnesium Iron TIBC AST ALT Total Creatine Kinase CK-MB (CK-2) Troponin T NT-Pro-B Natriuret Pep Total Protein Albumin Triglycerides HDL Cholesterol Folate Urine WBC (Auto) Urine Creatinine Urine Total Protein Vancomycin Trough 06/16/19 06/16/19 06/16/19 05:00 05:00 05:40 WBC 11.9 H RBC 3.24 L Hgb 9.0 L Hct 29.0 L MCV MCH MCHC 31 L RDW 18.6 H Plt Count 111 L Lymph % (Auto) [place] % (Auto) Eos % (Auto) Lymph # [place] # Eos # Seg Neutrophils % Seg Neuts % (Manual) 92.0 H Lymphocytes % (Manual) 2.0 L Monocytes % (Manual) Eosinophils % (Manual) Nucleated RBC % Seg Neutrophils # Seg Neutrophils # Man 10.9 H Lymphocytes # (Manual) 0.2 L Monocytes # (Manual) Eosinophils # (Manual) PT INR APTT Fibrinogen POC ABG pH ABG pH POC ABG pCO2 POC ABG pO2 ABG pO2 ABG HCO3 ABG O2 Saturation ABG Base Excess ABG Hemoglobin Oxyhemoglobin Sodium Potassium Chloride Carbon Dioxide 33 H BUN 49 H Creatinine 0.7 L Glucose 264 H POC Glucose 247 H Uric Acid Calcium Phosphorus Magnesium Iron TIBC AST ALT Total Creatine Kinase CK-MB (CK-2) Troponin T NT-Pro-B Natriuret Pep Total Protein Albumin Triglycerides HDL Cholesterol Folate Urine WBC (Auto) Urine Creatinine Urine Total Protein Vancomycin Trough 06/16/19 06/16/19 06/16/19 12:03 17:11 18:11 WBC RBC Hgb Hct MCV MCH MCHC RDW Plt Count Lymph % (Auto) [place] % (Auto) Eos % (Auto) Lymph # [place] # Eos # Seg Neutrophils % Seg Neuts % (Manual) Lymphocytes % (Manual) Monocytes % (Manual) Eosinophils % (Manual) Nucleated RBC % Seg Neutrophils # Seg Neutrophils # Man Lymphocytes # (Manual) Monocytes # (Manual) Eosinophils # (Manual) PT INR APTT Fibrinogen POC ABG pH ABG pH 7.289 L POC ABG pCO2 POC ABG pO2 ABG pO2 399.3 H ABG HCO3 30.1 H ABG O2 Saturation 99.6 H ABG Base Excess ABG Hemoglobin 8.6 L Oxyhemoglobin Sodium Potassium Chloride Carbon Dioxide BUN Creatinine Glucose POC Glucose 252 H 254 H Uric Acid Calcium Phosphorus Magnesium Iron TIBC AST ALT Total Creatine Kinase CK-MB (CK-2) Troponin T NT-Pro-B Natriuret Pep Total Protein Albumin Triglycerides HDL Cholesterol Folate Urine WBC (Auto) Urine Creatinine Urine Total Protein Vancomycin Trough 06/16/19 06/17/19 06/17/19 23:16 05:30 05:53 WBC RBC Hgb Hct MCV MCH MCHC RDW Plt Count Lymph % (Auto) [place] % (Auto) Eos % (Auto) Lymph # [place] # Eos # Seg Neutrophils % Seg Neuts % (Manual) Lymphocytes % (Manual) Monocytes % (Manual) Eosinophils % (Manual) Nucleated RBC % Seg Neutrophils # Seg Neutrophils # Man Lymphocytes # (Manual) Monocytes # (Manual) Eosinophils # (Manual) PT INR APTT Fibrinogen POC ABG pH ABG pH POC ABG pCO2 POC ABG pO2 ABG pO2 ABG HCO3 ABG O2 Saturation ABG Base Excess ABG Hemoglobin Oxyhemoglobin Sodium 147 H Potassium Chloride Carbon Dioxide 32 H BUN 60 H Creatinine Glucose 205 H POC Glucose 238 H 211 H Uric Acid Calcium Phosphorus Magnesium Iron TIBC AST ALT Total Creatine Kinase CK-MB (CK-2) Troponin T NT-Pro-B Natriuret Pep Total Protein Albumin Triglycerides HDL Cholesterol Folate Urine WBC (Auto) Urine Creatinine Urine Total Protein Vancomycin Trough 06/17/19 06/17/19 06/17/19 09:50 12:27 12:45 WBC RBC 2.79 L Hgb 8.2 L Hct 24.6 L MCV MCH MCHC RDW 18.5 H Plt Count 95 L Lymph % (Auto) [place] % (Auto) Eos % (Auto) Lymph # [place] # Eos # Seg Neutrophils % Seg Neuts % (Manual) Lymphocytes % (Manual) Monocytes % (Manual) Eosinophils % (Manual) Nucleated RBC % Seg Neutrophils # Seg Neutrophils # Man Lymphocytes # (Manual) Monocytes # (Manual) Eosinophils # (Manual) PT INR APTT Fibrinogen 194 L POC ABG pH ABG pH POC ABG pCO2 POC ABG pO2 ABG pO2 ABG HCO3 ABG O2 Saturation ABG Base Excess ABG Hemoglobin Oxyhemoglobin Sodium Potassium Chloride Carbon Dioxide BUN Creatinine Glucose POC Glucose 224 H Uric Acid Calcium Phosphorus Magnesium Iron TIBC AST ALT Total Creatine Kinase CK-MB (CK-2) Troponin T NT-Pro-B Natriuret Pep Total Protein Albumin Triglycerides HDL Cholesterol Folate Urine WBC (Auto) Urine Creatinine Urine Total Protein Vancomycin Trough 06/17/19 06/17/19 06/17/19 18:41 22:00 23:23 WBC RBC Hgb Hct MCV MCH MCHC RDW Plt Count Lymph % (Auto) [place] % (Auto) Eos % (Auto) Lymph # [place] # Eos # Seg Neutrophils % Seg Neuts % (Manual) Lymphocytes % (Manual) Monocytes % (Manual) Eosinophils % (Manual) Nucleated RBC % Seg Neutrophils # Seg Neutrophils # Man Lymphocytes # (Manual) Monocytes # (Manual) Eosinophils # (Manual) PT INR APTT Fibrinogen POC ABG pH ABG pH POC ABG pCO2 POC ABG pO2 ABG pO2 ABG HCO3 ABG O2 Saturation ABG Base Excess ABG Hemoglobin Oxyhemoglobin Sodium Potassium Chloride Carbon Dioxide BUN Creatinine Glucose POC Glucose 198 H 166 H 171 H Uric Acid Calcium Phosphorus Magnesium Iron TIBC AST ALT Total Creatine Kinase CK-MB (CK-2) Troponin T NT-Pro-B Natriuret Pep Total Protein Albumin Triglycerides HDL Cholesterol Folate Urine WBC (Auto) Urine Creatinine Urine Total Protein Vancomycin Trough 06/17/19 06/18/19 06/18/19 Unknown 03:50 04:25 WBC RBC Hgb Hct MCV MCH MCHC RDW Plt Count Lymph % (Auto) [place] % (Auto) Eos % (Auto) Lymph # [place] # Eos # Seg Neutrophils % Seg Neuts % (Manual) Lymphocytes % (Manual) Monocytes % (Manual) Eosinophils % (Manual) Nucleated RBC % Seg Neutrophils # Seg Neutrophils # Man Lymphocytes # (Manual) Monocytes # (Manual) Eosinophils # (Manual) PT INR APTT Fibrinogen POC ABG pH ABG pH 7.564 H 7.499 H POC ABG pCO2 POC ABG pO2 ABG pO2 238.6 H 130.8 H ABG HCO3 33.6 H 32.5 H ABG O2 Saturation 99.4 H ABG Base Excess 10.6 H 8.5 H ABG Hemoglobin 7.9 L 8.8 L Oxyhemoglobin Sodium 151 H Potassium 3.4 L Chloride Carbon Dioxide BUN 66 H Creatinine Glucose 189 H POC Glucose Uric Acid Calcium Phosphorus Magnesium Iron TIBC AST ALT Total Creatine Kinase CK-MB (CK-2) Troponin T NT-Pro-B Natriuret Pep Total Protein Albumin Triglycerides HDL Cholesterol Folate Urine WBC (Auto) Urine Creatinine Urine Total Protein Vancomycin Trough 06/18/19 06/18/19 06/18/19 05:25 05:27 11:50 WBC RBC 2.61 L Hgb 7.4 L Hct 22.9 L MCV MCH MCHC RDW 19.9 H Plt Count 81 L Lymph % (Auto) 12.9 L [place] % (Auto) 7.7 H Eos % (Auto) Lymph # 1.1 L [place] # Eos # Seg Neutrophils % 77.4 H Seg Neuts % (Manual) Lymphocytes % (Manual) Monocytes % (Manual) Eosinophils % (Manual) Nucleated RBC % Seg Neutrophils # Seg Neutrophils # Man Lymphocytes # (Manual) Monocytes # (Manual) Eosinophils # (Manual) PT INR APTT Fibrinogen POC ABG pH ABG pH POC ABG pCO2 POC ABG pO2 ABG pO2 ABG HCO3 ABG O2 Saturation ABG Base Excess ABG Hemoglobin Oxyhemoglobin Sodium Potassium Chloride Carbon Dioxide BUN Creatinine Glucose POC Glucose 186 H 263 H Uric Acid Calcium Phosphorus Magnesium Iron TIBC AST ALT Total Creatine Kinase CK-MB (CK-2) Troponin T NT-Pro-B Natriuret Pep Total Protein Albumin Triglycerides HDL Cholesterol Folate Urine WBC (Auto) Urine Creatinine Urine Total Protein Vancomycin Trough 06/18/19 06/18/19 06/18/19 18:35 21:31 23:21 WBC RBC Hgb Hct MCV MCH MCHC RDW Plt Count Lymph % (Auto) [place] % (Auto) Eos % (Auto) Lymph # [place] # Eos # Seg Neutrophils % Seg Neuts % (Manual) Lymphocytes % (Manual) Monocytes % (Manual) Eosinophils % (Manual) Nucleated RBC % Seg Neutrophils # Seg Neutrophils # Man Lymphocytes # (Manual) Monocytes # (Manual) Eosinophils # (Manual) PT INR APTT Fibrinogen POC ABG pH ABG pH POC ABG pCO2 POC ABG pO2 ABG pO2 ABG HCO3 ABG O2 Saturation ABG Base Excess ABG Hemoglobin Oxyhemoglobin Sodium Potassium Chloride Carbon Dioxide BUN Creatinine Glucose POC Glucose 154 H 186 H 202 H Uric Acid Calcium Phosphorus Magnesium Iron TIBC AST ALT Total Creatine Kinase CK-MB (CK-2) Troponin T NT-Pro-B Natriuret Pep Total Protein Albumin Triglycerides HDL Cholesterol Folate Urine WBC (Auto) Urine Creatinine Urine Total Protein Vancomycin Trough 06/19/19 06/19/19 06/19/19 03:18 04:30 04:30 WBC RBC 2.65 L Hgb 7.5 L Hct 23.1 L MCV MCH MCHC RDW 19.4 H Plt Count 74 L Lymph % (Auto) 8.8 L [place] % (Auto) 9.4 H Eos % (Auto) 4.7 H Lymph # 0.6 L [place] # Eos # Seg Neutrophils % 76.6 H Seg Neuts % (Manual) Lymphocytes % (Manual) Monocytes % (Manual) Eosinophils % (Manual) Nucleated RBC % Seg Neutrophils # Seg Neutrophils # Man Lymphocytes # (Manual) Monocytes # (Manual) Eosinophils # (Manual) PT INR APTT Fibrinogen POC ABG pH ABG pH 7.452 H POC ABG pCO2 POC ABG pO2 ABG pO2 105.5 H ABG HCO3 32.3 H ABG O2 Saturation ABG Base Excess 7.6 H ABG Hemoglobin 6.9 L Oxyhemoglobin Sodium 150 H Potassium 3.3 L Chloride Carbon Dioxide 31 H BUN 56 H Creatinine Glucose 197 H POC Glucose Uric Acid Calcium Phosphorus Magnesium Iron TIBC AST ALT Total Creatine Kinase CK-MB (CK-2) Troponin T NT-Pro-B Natriuret Pep Total Protein Albumin Triglycerides 210 H HDL Cholesterol Folate Urine WBC (Auto) Urine Creatinine Urine Total Protein Vancomycin Trough 06/19/19 06/19/19 06/19/19 05:24 12:18 18:55 WBC RBC Hgb Hct MCV MCH MCHC RDW Plt Count Lymph % (Auto) [place] % (Auto) Eos % (Auto) Lymph # [place] # Eos # Seg Neutrophils % Seg Neuts % (Manual) Lymphocytes % (Manual) Monocytes % (Manual) Eosinophils % (Manual) Nucleated RBC % Seg Neutrophils # Seg Neutrophils # Man Lymphocytes # (Manual) Monocytes # (Manual) Eosinophils # (Manual) PT INR APTT Fibrinogen POC ABG pH ABG pH POC ABG pCO2 POC ABG pO2 ABG pO2 ABG HCO3 ABG O2 Saturation ABG Base Excess ABG Hemoglobin Oxyhemoglobin Sodium Potassium Chloride Carbon Dioxide BUN Creatinine Glucose POC Glucose 176 H 260 H 192 H Uric Acid Calcium Phosphorus Magnesium Iron TIBC AST ALT Total Creatine Kinase CK-MB (CK-2) Troponin T NT-Pro-B Natriuret Pep Total Protein Albumin Triglycerides HDL Cholesterol Folate Urine WBC (Auto) Urine Creatinine Urine Total Protein Vancomycin Trough 06/19/19 06/19/19 06/20/19 22:57 23:46 04:40 WBC RBC 2.79 L Hgb 7.9 L Hct 24.3 L MCV MCH MCHC RDW 19.6 H Plt Count 92 L Lymph % (Auto) 9.2 L [place] % (Auto) 12.0 H Eos % (Auto) 5.2 H Lymph # 0.9 L [place] # 1.2 H Eos # 0.5 H Seg Neutrophils % 73.3 H Seg Neuts % (Manual) Lymphocytes % (Manual) Monocytes % (Manual) Eosinophils % (Manual) Nucleated RBC % Seg Neutrophils # Seg Neutrophils # Man Lymphocytes # (Manual) Monocytes # (Manual) Eosinophils # (Manual) PT INR APTT Fibrinogen POC ABG pH ABG pH POC ABG pCO2 POC ABG pO2 ABG pO2 ABG HCO3 ABG O2 Saturation ABG Base Excess ABG Hemoglobin Oxyhemoglobin Sodium Potassium Chloride Carbon Dioxide BUN Creatinine Glucose POC Glucose 145 H 216 H Uric Acid Calcium Phosphorus Magnesium Iron TIBC AST ALT Total Creatine Kinase CK-MB (CK-2) Troponin T NT-Pro-B Natriuret Pep Total Protein Albumin Triglycerides HDL Cholesterol Folate Urine WBC (Auto) Urine Creatinine Urine Total Protein Vancomycin Trough 06/20/19 06/20/19 06/20/19 04:40 05:40 05:54 WBC RBC Hgb Hct MCV MCH MCHC RDW Plt Count Lymph % (Auto) [place] % (Auto) Eos % (Auto) Lymph # [place] # Eos # Seg Neutrophils % Seg Neuts % (Manual) Lymphocytes % (Manual) Monocytes % (Manual) Eosinophils % (Manual) Nucleated RBC % Seg Neutrophils # Seg Neutrophils # Man Lymphocytes # (Manual) Monocytes # (Manual) Eosinophils # (Manual) PT INR APTT Fibrinogen POC ABG pH ABG pH 7.455 H POC ABG pCO2 POC ABG pO2 ABG pO2 60.9 L ABG HCO3 30.3 H ABG O2 Saturation 92.3 L ABG Base Excess 5.8 H ABG Hemoglobin 8.2 L Oxyhemoglobin 90.1 L Sodium Potassium 3.5 L Chloride Carbon Dioxide BUN 59 H Creatinine Glucose 200 H POC Glucose 190 H Uric Acid Calcium Phosphorus Magnesium 1.60 L Iron TIBC AST ALT Total Creatine Kinase CK-MB (CK-2) Troponin T NT-Pro-B Natriuret Pep Total Protein Albumin Triglycerides HDL Cholesterol Folate Urine WBC (Auto) Urine Creatinine Urine Total Protein Vancomycin Trough 06/20/19 06/20/19 06/20/19 09:12 09:12 12:24 WBC RBC Hgb Hct MCV MCH MCHC RDW Plt Count Lymph % (Auto) [place] % (Auto) Eos % (Auto) Lymph # [place] # Eos # Seg Neutrophils % Seg Neuts % (Manual) Lymphocytes % (Manual) Monocytes % (Manual) Eosinophils % (Manual) Nucleated RBC % Seg Neutrophils # Seg Neutrophils # Man Lymphocytes # (Manual) Monocytes # (Manual) Eosinophils # (Manual) PT INR APTT Fibrinogen POC ABG pH ABG pH POC ABG pCO2 POC ABG pO2 ABG pO2 ABG HCO3 ABG O2 Saturation ABG Base Excess ABG Hemoglobin Oxyhemoglobin Sodium Potassium Chloride Carbon Dioxide BUN Creatinine Glucose POC Glucose 225 H Uric Acid Calcium Phosphorus Magnesium Iron 45 L TIBC 110 L AST ALT Total Creatine Kinase CK-MB (CK-2) Troponin T NT-Pro-B Natriuret Pep Total Protein Albumin Triglycerides HDL Cholesterol Folate 7.01 L Urine WBC (Auto) Urine Creatinine Urine Total Protein Vancomycin Trough 06/20/19 06/20/19 06/20/19 17:42 21:55 23:24 WBC RBC Hgb Hct MCV MCH MCHC RDW Plt Count Lymph % (Auto) [place] % (Auto) Eos % (Auto) Lymph # [place] # Eos # Seg Neutrophils % Seg Neuts % (Manual) Lymphocytes % (Manual) Monocytes % (Manual) Eosinophils % (Manual) Nucleated RBC % Seg Neutrophils # Seg Neutrophils # Man Lymphocytes # (Manual) Monocytes # (Manual) Eosinophils # (Manual) PT INR APTT Fibrinogen POC ABG pH ABG pH POC ABG pCO2 POC ABG pO2 ABG pO2 ABG HCO3 ABG O2 Saturation ABG Base Excess ABG Hemoglobin Oxyhemoglobin Sodium Potassium Chloride Carbon Dioxide BUN Creatinine Glucose POC Glucose 255 H 218 H 215 H Uric Acid Calcium Phosphorus Magnesium Iron TIBC AST ALT Total Creatine Kinase CK-MB (CK-2) Troponin T NT-Pro-B Natriuret Pep Total Protein Albumin Triglycerides HDL Cholesterol Folate Urine WBC (Auto) Urine Creatinine Urine Total Protein Vancomycin Trough 06/21/19 06/21/19 06/21/19 03:32 03:40 05:20 WBC 12.8 H RBC 3.03 L Hgb 8.5 L Hct 26.2 L MCV MCH MCHC RDW 19.4 H Plt Count 131 L Lymph % (Auto) [place] % (Auto) Eos % (Auto) Lymph # [place] # Eos # Seg Neutrophils % Seg Neuts % (Manual) 78.0 H Lymphocytes % (Manual) 5.0 L Monocytes % (Manual) 11.0 H Eosinophils % (Manual) Nucleated RBC % Seg Neutrophils # Seg Neutrophils # Man 10.0 H Lymphocytes # (Manual) 0.6 L Monocytes # (Manual) 1.4 H Eosinophils # (Manual) 0.5 H PT INR APTT Fibrinogen POC ABG pH ABG pH 7.476 H POC ABG pCO2 POC ABG pO2 ABG pO2 162.0 H ABG HCO3 26.8 H ABG O2 Saturation 99.1 H ABG Base Excess 3.1 H ABG Hemoglobin 8.6 L Oxyhemoglobin Sodium Potassium Chloride Carbon Dioxide BUN Creatinine Glucose POC Glucose 202 H Uric Acid Calcium Phosphorus Magnesium Iron TIBC AST ALT Total Creatine Kinase CK-MB (CK-2) Troponin T NT-Pro-B Natriuret Pep Total Protein Albumin Triglycerides HDL Cholesterol Folate Urine WBC (Auto) Urine Creatinine Urine Total Protein Vancomycin Trough 06/21/19 06/21/19 06/21/19 05:20 12:30 18:18 WBC RBC Hgb Hct MCV MCH MCHC RDW Plt Count Lymph % (Auto) [place] % (Auto) Eos % (Auto) Lymph # [place] # Eos # Seg Neutrophils % Seg Neuts % (Manual) Lymphocytes % (Manual) Monocytes % (Manual) Eosinophils % (Manual) Nucleated RBC % Seg Neutrophils # Seg Neutrophils # Man Lymphocytes # (Manual) Monocytes # (Manual) Eosinophils # (Manual) PT INR APTT Fibrinogen POC ABG pH ABG pH POC ABG pCO2 POC ABG pO2 ABG pO2 ABG HCO3 ABG O2 Saturation ABG Base Excess ABG Hemoglobin Oxyhemoglobin Sodium Potassium Chloride 97.7 L Carbon Dioxide BUN 69 H Creatinine Glucose 239 H POC Glucose 176 H 187 H Uric Acid Calcium Phosphorus Magnesium 2.40 H Iron TIBC AST ALT Total Creatine Kinase CK-MB (CK-2) Troponin T NT-Pro-B Natriuret Pep Total Protein Albumin Triglycerides HDL Cholesterol Folate Urine WBC (Auto) Urine Creatinine Urine Total Protein Vancomycin Trough 06/22/19 06/22/19 06/22/19 04:11 05:30 05:30 WBC 12.6 H RBC 3.10 L Hgb 8.7 L Hct 27.0 L MCV MCH MCHC RDW 19.8 H Plt Count Lymph % (Auto) [place] % (Auto) Eos % (Auto) Lymph # [place] # Eos # Seg Neutrophils % Seg Neuts % (Manual) Lymphocytes % (Manual) Monocytes % (Manual) 10.0 H Eosinophils % (Manual) Nucleated RBC % Seg Neutrophils # Seg Neutrophils # Man 8.7 H Lymphocytes # (Manual) Monocytes # (Manual) 1.3 H Eosinophils # (Manual) PT INR APTT Fibrinogen POC ABG pH ABG pH POC ABG pCO2 POC ABG pO2 ABG pO2 ABG HCO3 27.7 H ABG O2 Saturation ABG Base Excess 3.3 H ABG Hemoglobin 8.5 L Oxyhemoglobin 94.9 L Sodium Potassium Chloride Carbon Dioxide BUN 66 H Creatinine Glucose 103 H POC Glucose Uric Acid Calcium Phosphorus Magnesium Iron TIBC AST ALT Total Creatine Kinase CK-MB (CK-2) Troponin T NT-Pro-B Natriuret Pep Total Protein Albumin Triglycerides HDL Cholesterol Folate Urine WBC (Auto) Urine Creatinine Urine Total Protein Vancomycin Trough 06/22/19 06/22/19 06/23/19 17:43 23:25 02:00 WBC RBC Hgb Hct MCV MCH MCHC RDW Plt Count Lymph % (Auto) [place] % (Auto) Eos % (Auto) Lymph # [place] # Eos # Seg Neutrophils % Seg Neuts % (Manual) Lymphocytes % (Manual) Monocytes % (Manual) Eosinophils % (Manual) Nucleated RBC % Seg Neutrophils # Seg Neutrophils # Man Lymphocytes # (Manual) Monocytes # (Manual) Eosinophils # (Manual) PT INR APTT Fibrinogen POC ABG pH ABG pH 7.469 H POC ABG pCO2 POC ABG pO2 ABG pO2 58.7 L ABG HCO3 28.0 H ABG O2 Saturation 94.6 L ABG Base Excess 4.0 H ABG Hemoglobin 7.1 L Oxyhemoglobin 92.2 L Sodium Potassium Chloride Carbon Dioxide BUN Creatinine Glucose POC Glucose 143 H 106 H Uric Acid Calcium Phosphorus Magnesium Iron TIBC AST ALT Total Creatine Kinase CK-MB (CK-2) Troponin T NT-Pro-B Natriuret Pep Total Protein Albumin Triglycerides HDL Cholesterol Folate Urine WBC (Auto) Urine Creatinine Urine Total Protein Vancomycin Trough 06/23/19 06/23/19 06/23/19 05:24 05:24 11:43 WBC 12.6 H RBC 2.96 L Hgb 8.3 L Hct 25.5 L MCV MCH MCHC RDW 20.2 H Plt Count Lymph % (Auto) [place] % (Auto) Eos % (Auto) Lymph # [place] # Eos # Seg Neutrophils % Seg Neuts % (Manual) Lymphocytes % (Manual) 12.0 L Monocytes % (Manual) 11.0 H Eosinophils % (Manual) 6.0 H Nucleated RBC % Seg Neutrophils # Seg Neutrophils # Man 8.8 H Lymphocytes # (Manual) Monocytes # (Manual) 1.4 H Eosinophils # (Manual) 0.8 H PT INR APTT Fibrinogen POC ABG pH ABG pH POC ABG pCO2 POC ABG pO2 ABG pO2 ABG HCO3 ABG O2 Saturation ABG Base Excess ABG Hemoglobin Oxyhemoglobin Sodium 146 H Potassium 3.5 L Chloride Carbon Dioxide BUN 48 H Creatinine Glucose 123 H POC Glucose 120 H Uric Acid Calcium Phosphorus Magnesium Iron TIBC AST ALT Total Creatine Kinase CK-MB (CK-2) Troponin T NT-Pro-B Natriuret Pep Total Protein Albumin Triglycerides HDL Cholesterol Folate Urine WBC (Auto) Urine Creatinine Urine Total Protein Vancomycin Trough 06/23/19 06/24/19 06/24/19 17:39 06:53 06:53 WBC 12.3 H RBC 2.87 L Hgb 8.0 L Hct 24.9 L MCV MCH MCHC RDW 20.5 H Plt Count Lymph % (Auto) [place] % (Auto) 8.8 H Eos % (Auto) 4.4 H Lymph # [place] # 1.1 H Eos # 0.5 H Seg Neutrophils % Seg Neuts % (Manual) Lymphocytes % (Manual) Monocytes % (Manual) Eosinophils % (Manual) Nucleated RBC % Seg Neutrophils # Seg Neutrophils # Man Lymphocytes # (Manual) Monocytes # (Manual) Eosinophils # (Manual) PT INR APTT Fibrinogen POC ABG pH ABG pH POC ABG pCO2 POC ABG pO2 ABG pO2 ABG HCO3 ABG O2 Saturation ABG Base Excess ABG Hemoglobin Oxyhemoglobin Sodium Potassium Chloride 107.1 H Carbon Dioxide 21 L BUN 29 H Creatinine 0.6 L Glucose 117 H POC Glucose 111 H Uric Acid Calcium Phosphorus Magnesium 1.60 L Iron TIBC AST ALT Total Creatine Kinase CK-MB (CK-2) Troponin T NT-Pro-B Natriuret Pep Total Protein Albumin Triglycerides HDL Cholesterol Folate Urine WBC (Auto) Urine Creatinine Urine Total Protein Vancomycin Trough 06/24/19 06/24/19 06/24/19 12:12 18:01 23:20 WBC RBC Hgb Hct MCV MCH MCHC RDW Plt Count Lymph % (Auto) [place] % (Auto) Eos % (Auto) Lymph # [place] # Eos # Seg Neutrophils % Seg Neuts % (Manual) Lymphocytes % (Manual) Monocytes % (Manual) Eosinophils % (Manual) Nucleated RBC % Seg Neutrophils # Seg Neutrophils # Man Lymphocytes # (Manual) Monocytes # (Manual) Eosinophils # (Manual) PT INR APTT Fibrinogen POC ABG pH ABG pH POC ABG pCO2 POC ABG pO2 ABG pO2 ABG HCO3 ABG O2 Saturation ABG Base Excess ABG Hemoglobin Oxyhemoglobin Sodium Potassium Chloride Carbon Dioxide BUN Creatinine Glucose POC Glucose 158 H 133 H 106 H Uric Acid Calcium Phosphorus Magnesium Iron TIBC AST ALT Total Creatine Kinase CK-MB (CK-2) Troponin T NT-Pro-B Natriuret Pep Total Protein Albumin Triglycerides HDL Cholesterol Folate Urine WBC (Auto) Urine Creatinine Urine Total Protein Vancomycin Trough 06/25/19 06/25/19 06/25/19 04:46 04:46 05:36 WBC 12.3 H RBC 2.98 L Hgb 8.3 L Hct 26.4 L MCV MCH MCHC 31 L RDW 20.1 H Plt Count Lymph % (Auto) [place] % (Auto) Eos % (Auto) Lymph # [place] # Eos # Seg Neutrophils % Seg Neuts % (Manual) Lymphocytes % (Manual) Monocytes % (Manual) 10.0 H Eosinophils % (Manual) Nucleated RBC % Seg Neutrophils # Seg Neutrophils # Man 8.1 H Lymphocytes # (Manual) Monocytes # (Manual) 1.2 H Eosinophils # (Manual) PT INR APTT Fibrinogen POC ABG pH ABG pH POC ABG pCO2 POC ABG pO2 ABG pO2 ABG HCO3 ABG O2 Saturation ABG Base Excess ABG Hemoglobin Oxyhemoglobin Sodium 148 H Potassium Chloride 108.0 H Carbon Dioxide BUN 21 H Creatinine 0.7 L Glucose 120 H POC Glucose 121 H Uric Acid Calcium Phosphorus Magnesium Iron TIBC AST ALT Total Creatine Kinase CK-MB (CK-2) Troponin T NT-Pro-B Natriuret Pep Total Protein Albumin Triglycerides HDL Cholesterol Folate Urine WBC (Auto) Urine Creatinine Urine Total Protein Vancomycin Trough
--- NOTE | 2019-06-25 11:28 | Operative Report ---
Operative Report Operative Report: Exam: Left internal jugular vein tunneled hemodialysis catheter removal Clinical indication: Catheter no longer needed, renal recovery Date: 06/25/2019 Procedure: The procedure was performed at bedside in the ICU. The patient's left chest wall and indwelling tunneled hemodialysis catheter were prepped and draped in the usual sterile fashion. One percent lidocaine was used for anesthesia at the catheter exit site and along the tunnel tract. The suture was removed. The catheter cup was then dissected free using a combination of sharp and blunt dissection. The catheter was then removed intact. Hemostasis was achieved using manual compression and a sterile pressure dressing was applied. The patient tolerated the procedure well. There were no immediate post procedure complications. Impression: Removal of left internal jugular vein tunneled hemodialysis catheter.
--- NOTE | 2019-06-25 13:14 | Progress Note ---
Assessment and Plan Cultures: Blood cultures 05/11/19: no growth thus far Blood cultures 05/18/19 pending Sputum culture 05/11/19: no growth thus far urine culture: no growth resp culture: no growth Blood culture 05/18/2019: no growth thus far urine culture 05/20/2019: normal skin shandra, Xenia albicans sputum culture 05/20/2019: Xenia albicans Blood culture 05/23/2019: no growth New cultures: 06/24/2019 blood culture: in process 06/24/2019 sputum culture: in process A/P: 34-year-old male with obesity admitted with: #New fever and leucocytosis: etiology unclear, follow up cultures. CXR does not show any new pneumonia. Had HD cath removed 06/25/2019, ?source of the fever. Empiric abx, avoid beta-lactams due to drug rash and eosinophilia. #Initial Fever, SIRS with shock: shock resolved, intermittently febrile. Initially felt to be ?aspiration related. Apparently was using CPAP. Persistent febrile again, likely ?UTI. Repeat UA showed pyuria, had indwelling Han which was removed again 05/20. Urine culture with normal skin shandra. Fevers now recurred since 05/17. Should eval for worsening pneumonia, sinusitis, but unable to fit in CT scan. candiduria also generally does not require treatment, but in this patient with recurrent fever, reasonable to consider a trial of fluconazole renally adjusted. Likely drug fever, given eosinophilia. Fever resolved with steroids. #Diffuse rash with eosinophilia: abx classes were changed on 05/25/2019 and then all abx stopped on 05/27/2019. #Acute hypoxic hypercapneic respiratory failure, possibly obesity hypoventilation syndrome: on the vent. Pulmonary managing. Xenia in sputum does not need treatment, it almost never causes a pneumonia and is reflective of colonization, overgrowth in the setting of abx use #Morbid obesity #CARLA: resolved. #Acute encephalopathy with ?seizure activity: persistent fevers. Had received empiric meningitis coverage earlier this admission #UTI: s/p han removal on 05/20 Recs: - agree with HD cath removal, done today - empiric Levofloxacin and Linezolid - if he remains afebrile and cultures negative x 48 hours, would d/c abx d/w Dr. Carmella Wilks MD, FACP [facility] ([facility]) C: [phone] O: [phone] F: [phone] Subjective Date of service: 06/25/19 Principal diagnosis: anemia - LOw PLT Interval history: ID reconsulted due to fever and leucocytosis. Since seen by us, patient is s/p trach. He is awake, follows commands. No rash. Had his HD cath removed today. Objective - Exam Narrative Exam: Physical Exam: Constitutional: awake, alert. Morbid obesity Head, Ears, Nose: Normocephalic, atraumatic. External ears, nose normal Eyes: Conjunctivae/corneas clear. No icterus. No ptosis. Neck: trach + Cardiovascular: S1, S2 normal. Respiratory: Good air entry, clear to auscultation bilaterally GI: Soft, non-tender; bowel sounds normal. No peritoneal signs Musculoskeletal: No pedal edema, no cyanosis. Skin: no rash, no abscess Hem/Lymphatic: No palpable cervical or supraclavicular nodes. No lymphangitis Psych: calm, no agitation Neurological: awake, alert, obeys commands, communicative - Constitutional Vitals: Vital Signs Temp Pulse Resp BP Pulse Ox 99.6 F 99 H 27 H 165/97 100 06/25/19 08:00 06/25/19 11:15 06/25/19 11:15 06/25/19 11:15 06/25/19 12:00 Temperature -Last 24 Hours Temperature 99.6 F Temperature 99.0 F Temperature 97.9 F Temperature 99.9 F Temperature 102.1 F Temperature 99.3 F Temperature 101.8 F - Labs CBC & Chem 7: 06/25/19 04:46 06/25/19 04:46 Labs: Abnormal lab results 06/24/19 06/24/19 06/24/19 Range/Units 12:12 18:01 23:20 WBC (4.5-11.0) K/mm3 RBC (3.65-5.03) M/mm3 Hgb (11.8-15.2) gm/dl Hct (35.5-45.6) % MCHC (32-34) % RDW (13.2-15.2) % Monocytes % (Manual) (0.0-7.3) % Seg Neutrophils # Man (1.8-7.7) K/mm3 Monocytes # (Manual) (0.0-0.8) K/mm3 Sodium (137-145) mmol/L Chloride (98-107) mmol/L BUN (9-20) mg/dL Creatinine (0.8-1.5) mg/dL Glucose (75-100) mg/dL POC Glucose 158 H 133 H 106 H (70-105) 06/25/19 06/25/19 06/25/19 Range/Units 04:46 04:46 05:36 WBC 12.3 H (4.5-11.0) K/mm3 RBC 2.98 L (3.65-5.03) M/mm3 Hgb 8.3 L (11.8-15.2) gm/dl Hct 26.4 L (35.5-45.6) % MCHC 31 L (32-34) % RDW 20.1 H (13.2-15.2) % Monocytes % (Manual) 10.0 H (0.0-7.3) % Seg Neutrophils # Man 8.1 H (1.8-7.7) K/mm3 Monocytes # (Manual) 1.2 H (0.0-0.8) K/mm3 Sodium 148 H (137-145) mmol/L Chloride 108.0 H (98-107) mmol/L BUN 21 H (9-20) mg/dL Creatinine 0.7 L (0.8-1.5) mg/dL Glucose 120 H (75-100) mg/dL POC Glucose 121 H (70-105) - Imaging and cardiology Chest x-ray: report reviewed, image reviewed (limited due to body habitus, no obvious pneumonia seen)
--- NOTE | 2019-06-25 20:14 | Progress Note ---
Assessment and Plan Assessment and plan: 34-year-old man with morbid obesity was brought to the hospital for shortness of breath and insomnia. He was found to have severe hypoxia and bradycardia who then became pulseless, he was cyanotic and he was intubated after receiving CPR with 2 rounds of epinephrine. Patient was intubated, extubated and reintubated, unable to wean vent dependent, underwent trach and PEG on 06/22/2019 --Persistent fevers; leukocytosis Internal jugular tunneled hemodialysis catheter removed this morning New set of cultures, blood urine and sputum On Levaquin and Zyvox, reconsulted ID --Acute respiratory failure; vent dependent/status post trach and PEG Continue ventilatory support, trach care, nebulizers Pulmonary critical following --Febrile illness; Patient is being monitored off antibiotics Follow cultures, supportive care. --Obesity hypoventilation syndrome Continue ventilatory support, nebulizers Pulmonary critical following --Status post cardiac arrest mild anoxic brain injury patient's mentation is improved ., EEG was negative for seizures and neurology consult appreciated. --Severe malnutrition Dysphasia; dw with his mom, she is agreeable to PEG tube, GS consulted Dietitian input appreciated, continue tube feeds --Anemia of chronic disease : Closely monitor H&H and transfuse as needed. 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 Patient is on Eliquis --Acute kidney injury due to ATN : Requiring dialysis Resolved, nephrology following. --Hypernatremia: Trending down, closely monitor --Hypokalemia hypomagnesemia: Replace as needed Per protocol monitor electrolytes --Morbid obesity; will need weight loss program upon discharge --DVT prophylaxis; scd for now Plan of care discussed with the patient and his nurse Disposition ;LTAC placement Multiple social and financial/insurance issues CCT 35 minutes History Interval history: Patient seen and examined this morning in ICU Patient's chart and medications reviewed Fevers improved, MAXIMUM TEMPERATURE 100.4 this morning On IV antibiotics Tunnel hemodialysis catheter was removed cardiovascular Patient is alert and awake Status post tracheostomy on vent Vital signs reviewed Hospitalist Physical - Constitutional Vitals: Temp Pulse Resp BP Pulse Ox 98.9 F 89 30 H 150/96 97 06/25/19 19:44 06/25/19 18:00 06/25/19 18:00 06/25/19 18:15 06/25/19 20:03 General appearance: Present: mild distress, well-nourished, obese (morbidly obese) - EENT Eyes: Present: PERRL, EOM intact - Neck Neck: Present: supple - Respiratory Respiratory effort: normal Respiratory: bilateral: diminished, rhonchi, negative: rales, wheezing - Cardiovascular Rhythm: regular Heart Sounds: Present: S1 & S2 - Extremities Extremities: no ischemia Extremity abnormal: edema - Abdominal General gastrointestinal: soft, non-tender, non-distended, normal bowel sounds, other (PEG in place) - Integumentary Integumentary: Present: clear, warm - Psychiatric Psychiatric: appropriate mood/affect, cooperative - Neurologic Neurologic: moves all extremities Results - Labs CBC & Chem 7: 06/25/19 04:46 06/25/19 04:46 Labs: Laboratory Last Values WBC 12.3 K/mm3 (4.5-11.0) H 06/25/19 04:46 RBC 2.98 M/mm3 (3.65-5.03) L 06/25/19 04:46 Hgb 8.3 gm/dl (11.8-15.2) L 06/25/19 04:46 Hct 26.4 % (35.5-45.6) L 06/25/19 04:46 MCV 89 fl (84-94) 06/25/19 04:46 MCH 28 pg (28-32) 06/25/19 04:46 MCHC 31 % (32-34) L 06/25/19 04:46 RDW 20.1 % (13.2-15.2) H 06/25/19 04:46 Plt Count 231 K/mm3 (140-440) 06/25/19 04:46 Lymph % (Auto) 23.8 % (13.4-35.0) 06/24/19 06:53 [place] % (Auto) 8.8 % (0.0-7.3) H 06/24/19 06:53 Eos % (Auto) 4.4 % (0.0-4.3) H 06/24/19 06:53 Baso % (Auto) 0.9 % (0.0-1.8) 06/24/19 06:53 Lymph # 2.9 K/mm3 (1.2-5.4) 06/24/19 06:53 [place] # 1.1 K/mm3 (0.0-0.8) H 06/24/19 06:53 Eos # 0.5 K/mm3 (0.0-0.4) H 06/24/19 06:53 Baso # 0.1 K/mm3 (0.0-0.1) 06/24/19 06:53 Add Manual Diff Complete 06/25/19 04:46 Total Counted 100 06/25/19 04:46 Seg Neutrophils % 62.1 % (40.0-70.0) 06/24/19 06:53 Seg Neuts % (Manual) 66.0 % (40.0-70.0) 06/25/19 04:46 Band Neutrophils % 0 % 06/25/19 04:46 Lymphocytes % (Manual) 20.0 % (13.4-35.0) 06/25/19 04:46 Reactive Lymphs % (Man) 0 % 06/25/19 04:46 Monocytes % (Manual) 10.0 % (0.0-7.3) H 06/25/19 04:46 Eosinophils % (Manual) 3.0 % (0.0-4.3) 06/25/19 04:46 Basophils % (Manual) 0 % (0.0-1.8) 06/25/19 04:46 Metamyelocytes % 1.0 % 06/25/19 04:46 Myelocytes % 0 % 06/25/19 04:46 Promyelocytes % 0 % 06/25/19 04:46 Blast Cells % 0 % 06/25/19 04:46 Nucleated RBC % Not Reportable 06/25/19 04:46 Seg Neutrophils # 7.7 K/mm3 (1.8-7.7) 06/24/19 06:53 Seg Neutrophils # Man 8.1 K/mm3 (1.8-7.7) H 06/25/19 04:46 Band Neutrophils # 0.0 K/mm3 06/25/19 04:46 Lymphocytes # (Manual) 2.5 K/mm3 (1.2-5.4) 06/25/19 04:46 Abs React Lymphs (Man) 0.0 K/mm3 06/25/19 04:46 Monocytes # (Manual) 1.2 K/mm3 (0.0-0.8) H 06/25/19 04:46 Eosinophils # (Manual) 0.4 K/mm3 (0.0-0.4) 06/25/19 04:46 Basophils # (Manual) 0.0 K/mm3 (0.0-0.1) 06/25/19 04:46 Metamyelocytes # 0.1 K/mm3 06/25/19 04:46 Myelocytes # 0.0 K/mm3 06/25/19 04:46 Promyelocytes # 0.0 K/mm3 06/25/19 04:46 Blast Cells # 0.0 K/mm3 06/25/19 04:46 WBC Morphology Not Reportable 06/25/19 04:46 Hypersegmented Neuts Not Reportable 06/25/19 04:46 Hyposegmented Neuts Not Reportable 06/25/19 04:46 Hypogranular Neuts Not Reportable 06/25/19 04:46 Smudge Cells Not Reportable 06/25/19 04:46 Toxic Granulation Not Reportable 06/25/19 04:46 Toxic Vacuolation Not Reportable 06/25/19 04:46 Dohle Bodies Not Reportable 06/25/19 04:46 [place]-Huet Anomaly Not Reportable 06/25/19 04:46 Renea Rods Not Reportable 06/25/19 04:46 Platelet Estimate Consistent w auto 06/25/19 04:46 Clumped Platelets Not Reportable 06/25/19 04:46 Plt Clumps, EDTA Not Reportable 06/25/19 04:46 Large Platelets Not Reportable 06/25/19 04:46 Giant Platelets Not Reportable 06/25/19 04:46 Platelet Satelliting Not Reportable 06/25/19 04:46 Plt Morphology Comment Not Reportable 06/25/19 04:46 RBC Morphology Not Reportable 06/25/19 04:46 Dimorphic RBCs Not Reportable 06/25/19 04:46 Polychromasia Not Reportable 06/25/19 04:46 Hypochromasia 1+ 06/25/19 04:46 Poikilocytosis Not Reportable 06/25/19 04:46 Anisocytosis 1+ 06/25/19 04:46 Microcytosis Not Reportable 06/25/19 04:46 Macrocytosis Not Reportable 06/25/19 04:46 Spherocytes Not Reportable 06/25/19 04:46 Pappenheimer Bodies Not Reportable 06/25/19 04:46 Sickle Cells Not Reportable 06/25/19 04:46 Target Cells Not Reportable 06/25/19 04:46 Tear Drop Cells Not Reportable 06/25/19 04:46 Ovalocytes Not Reportable 06/25/19 04:46 Stomatocytes 3+ 06/23/19 05:24 Helmet Cells Not Reportable 06/25/19 04:46 [place] Bodies Not Reportable 06/25/19 04:46 [place] Rings Not Reportable 06/25/19 04:46 [place] Cells Not Reportable 06/25/19 04:46 Bite Cells Not Reportable 06/25/19 04:46 Crenated Cell Not Reportable 06/25/19 04:46 Elliptocytes Not Reportable 06/25/19 04:46 Acanthocytes (Spur) Not Reportable 06/25/19 04:46 Rouleaux Not Reportable 06/25/19 04:46 Hemoglobin C Crystals Not Reportable 06/25/19 04:46 Schistocytes Not Reportable 06/25/19 04:46 Malaria parasites Not Reportable 06/25/19 04:46 [place] Bodies Not Reportable 06/25/19 04:46 Hem Pathologist Commnt No 06/25/19 04:46 PT 15.4 Sec. (12.2-14.9) H 05/01/19 Unknown INR 1.23 (0.87-1.13) H 05/01/19 Unknown APTT 22.7 Sec. (24.2-36.6) L 05/01/19 Unknown Fibrinogen 194 mg/dl (211-480) L 06/17/19 12:45 Heparin Anti-Xa, Unfract Negative (Negative) 06/17/19 12:45 POC ABG pH 7.462 (7.35-7.45) H 06/05/19 03:52 ABG pH 7.469 pH Units (7.350-7.450) H 06/23/19 02:00 POC ABG pCO2 39.8 (35-45) 06/05/19 03:52 ABG pCO2 39.4 mm Hg 06/23/19 02:00 POC ABG pO2 86 (80-105) 06/05/19 03:52 ABG pO2 58.7 mm Hg (80.0-90.0) L 06/23/19 02:00 POC ABG HCO3 28.4 (22-26 mml/L) 06/05/19 03:52 ABG HCO3 28.0 mmol/L (20.0-26.0) H 06/23/19 02:00 POC ABG Total CO2 30 (23-27mmol/L) 06/05/19 03:52 POC ABG O2 Sat 97 06/05/19 03:52 ABG O2 Saturation 94.6 % (95.0-99.0) L 06/23/19 02:00 ABG O2 Content 9.2 (0.0-44) 06/23/19 02:00 POC ABG Base Excess 5 ((-2) - (+3)mmol/L) 06/05/19 03:52 ABG Base Excess 4.0 mmol/L (-2.0-3.0) H 06/23/19 02:00 ABG Hemoglobin 7.1 gm/dl (14.0-18.0) L 06/23/19 02:00 ABG Carboxyhemoglobin 2.0 % (0.0-5.0) 06/23/19 02:00 ABG Methemoglobin 0.5 % (0.0-1.5) 06/23/19 02:00 Oxyhemoglobin 92.2 % (95.0-99.0) L 06/23/19 02:00 FiO2 30 % 06/23/19 02:00 Sodium 148 mmol/L (137-145) H 06/25/19 04:46 Potassium 3.7 mmol/L (3.6-5.0) 06/25/19 04:46 Chloride 108.0 mmol/L (98-107) H 06/25/19 04:46 Carbon Dioxide 26 mmol/L (22-30) 06/25/19 04:46 Anion Gap 18 mmol/L 06/25/19 04:46 BUN 21 mg/dL (9-20) H 06/25/19 04:46 Creatinine 0.7 mg/dL (0.8-1.5) L 06/25/19 04:46 Estimated GFR > 60 ml/min 06/25/19 04:46 BUN/Creatinine Ratio 30 % 06/25/19 04:46 Glucose 120 mg/dL (75-100) H 06/25/19 04:46 POC Glucose 145 (70-105) H 06/25/19 18:30 Osmolality 327 Mosm/kg 05/07/19 13:45 Uric Acid 18.0 mg/dL (3.5-7.6) H 05/07/19 13:45 Calcium 9.2 mg/dL (8.4-10.2) 06/25/19 04:46 Phosphorus 3.70 mg/dL (2.5-4.5) 06/10/19 05:45 Magnesium 1.70 mg/dL (1.7-2.3) 06/25/19 04:46 Iron 45 ug/dL (49-181) L 06/20/19 09:12 TIBC 110 mcg/dL (250-450) L 06/20/19 09:12 Ferritin 315.2 ng/mL (13.0-400.0) 06/20/19 09:12 Total Bilirubin 0.50 mg/dL (0.1-1.2) 06/08/19 04:20 AST 23 units/L (5-40) 06/08/19 04:20 ALT 66 units/L (7-56) H 06/08/19 04:20 Alkaline Phosphatase 59 units/L (35-129) 06/08/19 04:20 Total Creatine Kinase 131 units/L (55-170) 05/02/19 04:41 CK-MB (CK-2) 5.2 ng/mL (0.0-4.0) H 05/02/19 04:41 CK-MB (CK-2) Rel Index 3.9 (0-4) 05/02/19 04:41 Troponin T 0.067 ng/mL (0.00-0.029) H D 05/02/19 04:41 NT-Pro-B Natriuret Pep 6831 pg/mL (0-450) H 05/01/19 Unknown Total Protein 5.5 g/dL (6.3-8.2) L 06/08/19 04:20 Albumin 2.9 g/dL (3.9-5) L 06/08/19 04:20 Albumin/Globulin Ratio 1.1 % 06/08/19 04:20 Triglycerides 210 mg/dL (2-149) H 06/19/19 04:30 Cholesterol 173 mg/dL (50-199) 05/02/19 00:06 LDL Cholesterol Direct 126 mg/dL (50-130) 05/02/19 00:06 HDL Cholesterol 18 mg/dL (40-59) L 05/02/19 00:06 Cholesterol/HDL Ratio 9.61 % 05/02/19 00:06 Serotonin Release Assay See scanned results 06/17/19 12:45 Vitamin B12 353.0 pg/mL (211-911) 06/20/19 09:12 Folate 7.01 ng/mL (7.3-26.0) L 06/20/19 09:12 Procalcitonin 0.05 ng/mL (<0.15) 06/17/19 12:45 Urine Color Yellow (Yellow) 06/17/19 12:45 Urine Turbidity Slightly-cloudy (Clear) 06/17/19 12:45 Urine pH 5.0 (5.0-7.0) 06/17/19 12:45 Ur Specific [place] 1.013 (1.003-1.030) 06/17/19 12:45 Urine Protein <15 mg/dl mg/dL (Negative) 06/17/19 12:45 Urine Glucose (UA) Neg mg/dL (Negative) 06/17/19 12:45 Urine Ketones Neg mg/dL (Negative) 06/17/19 12:45 Urine Blood Sm (Negative) 06/17/19 12:45 Urine Nitrite Neg (Negative) 06/17/19 12:45 Urine Bilirubin Neg (Negative) 06/17/19 12:45 Urine Urobilinogen < 2.0 mg/dL (<2.0) 06/17/19 12:45 Ur Leukocyte Esterase Neg (Negative) 06/17/19 12:45 Urine WBC (Auto) 2.0 /HPF (0.0-6.0) 06/17/19 12:45 Urine RBC (Auto) 2.0 /HPF (0.0-6.0) 06/17/19 12:45 U Epithel Cells (Auto) < 1.0 /HPF (0-13.0) 06/17/19 12:45 Urine Bacteria (Auto) 1+ /HPF (Negative) 05/20/19 12:00 Uric Acid Crystals 3+ 05/03/19 10:55 Urine Mucus Few /HPF 06/17/19 12:45 Urine Yeast (Budding) 3+ /HPF 05/20/19 12:00 Urine Creatinine 292.8 mg/dL (0.1-20.0) H 05/07/19 22:40 Urine Sodium 11 mmol/L 05/07/19 22:40 Urine Total Protein 269 mg/dL (5-11.8) H 05/07/19 22:40 Vancomycin Trough 20.5 ug/mL (5.0-20.0) H 05/15/19 09:00 Random Vancomycin 11.5 ug/mL (0-40.0) 05/27/19 06:00 AMNA Screen Negative (Negative) 05/07/19 13:45 Heparin-induced Plt Ab Negative (Negative) 06/17/19 12:45 UF Heparin High Dose 13 % Release 06/17/19 12:45 YUNG UFH Low Dose 0.1 8 % Release 06/17/19 12:45 YUNG UFH Low Dose 0.5 7 % Release 06/17/19 12:45 Hepatitis A IgM Ab Non-reactive (NonReactive) 05/07/19 13:45 Hep Bs Antigen Non-reactive (Negative) 05/07/19 13:45 Hep B Core IgM Ab Non-reactive (NonReactive) 05/07/19 13:45 Hepatitis C Antibody Non-reactive (NonReactive) 05/07/19 13:45 Influenza A (Rapid) Negative (Negative) 06/17/19 11:35 Influenza B (Rapid) Negative (Negative) 06/17/19 11:35 Active Medications - Current Medications Current Medications: Generic Name Dose Route Start Last Admin Trade Name Freq PRN Reason Stop Dose Admin Acetaminophen 650 mg 06/24/19 17:00 06/25/19 17:26 Tylenol PO Not Given Q6H [facility] Amlodipine Besylate 10 mg 06/25/19 11:00 06/25/19 10:30 Amlodipine PO 10 mg DAILY [facility] Administration Lipase/Protease/Amylase 1 each 05/14/19 15:01 Pancreaze 10,500 Unit FEEDTUBE PRN PRN For Clogged Feeding Tube Apixaban 2.5 mg 06/23/19 22:00 06/25/19 10:26 Eliquis PO Not Given Q12HR [facility] Protocol Dextrose 50 gm 05/01/19 20:24 D50w (25gm) Vial IV Q30MIN PRN Hypoglycemia Protocol Famotidine 20 mg 06/17/19 10:00 06/25/19 10:24 Pepcid PO 20 mg BID VICKEY Administration Fentanyl 25 mcg 06/24/19 17:00 06/25/19 15:53 Sublimaze IV 25 mcg Q2HR PRN Administration Pain, Moderate (4-6) Ferrous Sulfate 308 mg 06/18/19 12:00 06/25/19 10:26 Ferrous Sulfate PO Not Given QDAY VICKEY Hydrochlorothiazide 12.5 mg 06/25/19 11:00 06/25/19 10:30 Hctz PO 12.5 mg QDAY VICKEY Administration Hydrophilic Ointment 1 applic 06/16/19 17:34 Vaseline Lip Therapy TP Q2HR PRN Dry Lips Propofol 1,000 mg in 100 mls @ 7.716 mls/hr 06/16/19 21:00 06/23/19 18:39 Diprivan 10 Mg/Ml IV 0 mcg/kg/min TITR VICKEY 0 mls/hr Titration Protocol 5 MCG/KG/MIN Fentanyl Citrate 2,000 mcg in 100 mls @ 12.86 mls/hr 06/17/19 14:00 Fentanyl Drip Premix IV TITR VICKEY Protocol 1 MCG/KG/HR Linezolid 600 mg in 300 mls @ 300 mls/hr 06/24/19 22:00 06/25/19 10:24 Zyvox 600mg/300ml IV 300 mls/hr Q12HR [facility] Administration Protocol Levofloxacin/Dextrose 750 mg in 150 mls @ 100 mls/hr 06/25/19 10:00 06/25/19 10:24 Levaquin 750mg/150ml IV 100 mls/hr Q24HR [facility] Administration Protocol Insulin Human Lispro 0 unit 06/01/19 14:00 06/25/19 15:52 Humalog SUB-Q Not Given Q6HR [facility] Protocol Labetalol HCl 10 mg 06/11/19 22:48 06/25/19 15:53 Labetalol IV 10 mg Q4H PRN Administration BP >170/105; hold for HR <60 Methylprednisolone Sodium Succinate 20 mg 06/22/19 12:00 06/25/19 10:24 Solu-Medrol IV 20 mg Q24HR VICKEY Administration Multi-Ingred Cream/Lotion/Oil/Oint 1 applic 06/16/19 18:00 Artificial Tears Ophth Oint OU Q4HR PRN Dry Eye(s) Multivit/Ca Carb/B Cmplx/FA/Prenat 1 cap 06/23/19 10:00 06/25/19 10:26 Renal Caps PO Not Given QDAY VICKEY Potassium Chloride 40 meq 06/19/19 10:00 06/25/19 10:26 Potassium Chloride FEEDTUBE Not Given QDAY VICKEY Simple Syrup 15 ml 05/14/19 15:01 Simple Syrup FEEDTUBE PRN PRN Hypoglycemia Simple Syrup 30 ml 05/14/19 15:01 Simple Syrup FEEDTUBE PRN PRN Hypoglycemia Sodium Bicarbonate 325 mg 05/14/19 15:01 Sodium Bicarbonate FEEDTUBE PRN PRN For Clogged Feeding Tube Nutrition/Malnutrition Assess - Dietary Evaluation Nutrition/Malnutrition Findings: Nutrition Notes Start: 05/04/19 12:54 Freq: Status: Active Protocol: Document 06/25/19 10:38 MK (Rec: 06/25/19 10:51 MK [id number]) Co-Sign 06/25/19 10:38 LP Nutrition Notes Need for Assessment generated from: MD Order Initial or Follow up Assessment Current Diagnosis Acute Kidney Injury,Sepsis, Respiratory Failure Other Pertinent Diagnosis HD Current Diet Nepro 1.8 at 50 ml/hr Labs/Tests Na 148 Pertinent Medications Humalog Humulin Solu-Medrol Height 6 ft 4 in Weight 257.2 kg [place] Body Weight (kg) 91.81 BMI 69.0 Weight Status Morbidly Obese Subjective/Other Information FU for tolerance. Per RN pt tolerating TF. Observed Nepro running at 50 ml/hr. Change to 400 ml flush q4h for hypernatremia. Percent of energy/protein needs met: 100%/100% Burn Absent Trauma Absent GI Symptoms None Current % PO Negligible Minimum of two criteria No Fluid Accumulation Moderate to Severe (severe) #1 Nutrition Diagnosis Inadequate oral intake Diagnosis Progress(for reassessment Continues documentation) Is patient on ventilator? Yes Is Patient Ambulatory and/or Out of Bed No REE-([place]-confined to bed) 4342.284 Kcal/Kg value to use for calculation 8 Approximate Energy Requirements Using 2057 kcal/Kg Calculation Used for Recommendations Kcal/kg Additional Notes PRO needs: 73 - 91 g (0.8 - 1 g/kg IBW) Fluid needs: 1 ml/kcal Nutrition Intervention Change Diet Order: Continue TF Nutrition Support: Nepro 1.8 at 50 ml/hr Change flush to 400ml q4h for hypernatremia. Kcal 2,160 Protein (gm) 97 Fluid (mL) 872 Goal #1 TF tolerance [ End ] Goal #2 Meet at least 75% kcal/PRO needs via TF Anticipated Discharge Needs: Unable to determine at this time Follow-Up By: 06/28/19 Additional Comments FU for TF tolerance and Na labs
[2019-06-26 06:03] LABS: Hemoglobin 8.6 gm/dl (11.8-15.2); Mean Corpuscular HGB Conc 32 % (32-34); Mean Corpuscular Volume 89 fl (84-94); Platelet Count 232 K/mm3 (140-440); Red Blood Count 3.02 M/mm3 (3.65-5.03)
[2019-06-26 06:12] LABS: Red Cell Distribution Width 20.4 % (13.2-15.2)
[2019-06-26 06:17] LABS: BUN/Creatinine Ratio 27; Blood Urea Nitrogen 19 mg/dL (9-20); Calcium 9.2 mg/dL (8.4-10.2); Hemolysis Index 24
[2019-06-26 07:31] LABS: Anisocytosis 1+; Band Neutrophils # (Manual) 0.4 K/mm3; Basophils % (Manual) 0 % (0.0-1.8); Total Cells Counted 100
[2019-06-26 07:32] LABS: Platelet Estimate Consistent w Auto
[2019-06-26] MEDS: methylPREDNISolone Sod Succinate 40 MG/1 ML INJ IV SCH (09:48)
[2019-06-26] MEDS: POTASSIUM CHLORIDE 20 MEQ PACKET FEEDTUBE SCH (09:49)
[2019-06-26] MEDS: hydroCHLOROthiazide 25 MG TAB PO SCH ×2 (09:50→14:28)
[2019-06-26] MEDS: FAMOTIDINE 20 MG TAB PO SCH ×2 (09:50→21:38)
[2019-06-26] MEDS: FOLIC ACID/VIT B COMP W-C 1 MG (RENAL CAPS) PO SCH (09:50)
[2019-06-26] MEDS: FERROUS SULFATE 308 MG (62mg Elemental Iron) / 7 ML ELIXIR PO SCH (09:51)
[2019-06-26] MEDS: amLODIPine 10 MG TAB PO SCH (09:51)
[2019-06-26] MEDS: LINEZOLID 600 MG/300 ML BAG IV SCH ×2 (09:52→21:38)
[2019-06-26] MEDS: APIXABAN 2.5 MG TAB PO SCH ×2 (09:52→21:39)
--- NOTE | 2019-06-26 10:26 | Progress Note ---
Assessment and Plan 34 y/o male with acute hypoxic, hypercapnic respiratory failure currently ventilated and sedated, now with persistent fevers and seizure and on HD 06/26/2019: Will discontinue vent from room. patient was placed on vent last n ight. Not sure why. Will place orders for continued T-piece. Appears he was doing well with no issues. If tolerates being off vent tonight, transition to step down tomorrow. Increase HCTZ to 25 06/25/2019: Continue T-piece today as tolerated. Only rest of vent if needed. If not needed tonight then will discontinue vent from room. Spoke with IR, and they will remove Perm cath today as this could be a cause of fevers. Follow up cultures and ID recs. Will increase Free H2O to [id number]. Change steroids to 10 PO starting tomorrow morning. Added scheduled BP meds. 06/24/2019: Will attempt T-piece later today, if tolerates, then will continue trial indefinitely. PT/OT will need to start seeing him again. Will drop steroids to 10 daily (PO) starting Friday morning. 06/23/2019: PSV all day today and tomorrow. Will start T-piece either tomorrow or Friday. Tolerating Feeds 06/22/2019: Patient scheduled for OR today. Plan as outlined in Dr. Saez's note from yesterday. Discussed with patient again this am. Really appreciate surgery help with this and the promptness of procedure. Will follow up post-op later today. 06/21/2019: Unfortunately re-intubated last week. Will need Trach and Peg, but I doubt peg will happen secondary to his size. Will discuss with surgery and maybe they can just put in a number 6 XLT from the start. I think he will get off the vent relatively quickly and can start to eat. This trach will be indefinite. I have explained this to him. I have not seen his family at the bedside during this admission but Im told they come in the evenings. 06/12/2019: Started HCTZ 50 daily and Labetalol 100 TID. Will increase Labetalol to 200 TID. Already on Clonidine patch. Continue Minoxidil. Will start to wean drip. PT/OT. Feeds through NG now that this is in place. Will need speech re-evaluation. Will order NT suctioning at least [id number] for the next 24 hours. 06/11/2019: Bipap at night and PRN. Na levels are increasing. Agree with D5W. Unable to place DH, several nurses tried. Will ask speech to come by and maria luisa ssess now that patient is more willing to cooperate. . Continue PT/OT, sat up on side of bed yesterday. Continue IMCU monitoring for now. As stated below, patient was intubated for 37 days. CCT 31 minutes. Subjective Date of service: 06/26/19 Principal diagnosis: anemia - LOw PLT Interval history: No acute events. Remains on T-piece. Awake and alert and appropriate. Objective Vital Signs - 12hr 06/25/19 06/25/19 06/25/19 22:30 22:45 23:00 Temperature Pulse Rate 83 80 78 Pulse Rate [ From Monitor] Respiratory 19 16 18 Rate Blood Pressure 165/108 174/111 153/107 O2 Sat by Pulse 99 98 95 Oximetry O2 Sat by Pulse Oximetry [ Assessment] 06/25/19 06/25/19 06/25/19 23:15 23:30 23:45 Temperature Pulse Rate 85 82 94 H Pulse Rate [ From Monitor] Respiratory 16 16 17 Rate Blood Pressure 166/97 168/108 163/107 O2 Sat by Pulse Oximetry O2 Sat by Pulse Oximetry [ Assessment] 06/26/19 06/26/19 06/26/19 00:00 00:15 00:18 Temperature Pulse Rate 79 Pulse Rate [ 84 From Monitor] Respiratory 16 Rate Blood Pressure 152/116 160/113 160/113 O2 Sat by Pulse 98 99 Oximetry O2 Sat by Pulse Oximetry [ Assessment] 06/26/19 06/26/19 06/26/19 00:30 00:45 01:00 Temperature Pulse Rate 77 85 Pulse Rate [ From Monitor] Respiratory 17 26 H Rate Blood Pressure 167/112 167/110 160/114 O2 Sat by Pulse Oximetry O2 Sat by Pulse Oximetry [ Assessment] 06/26/19 06/26/19 06/26/19 01:15 01:31 02:11 Temperature Pulse Rate 86 85 100 H Pulse Rate [ From Monitor] Respiratory 26 H 13 Rate Blood Pressure 152/116 167/110 167/110 O2 Sat by Pulse Oximetry O2 Sat by Pulse Oximetry [ Assessment] 06/26/19 06/26/19 06/26/19 02:15 02:31 02:53 Temperature Pulse Rate 87 80 Pulse Rate [ From Monitor] Respiratory 15 22 Rate Blood Pressure 167/110 167/110 O2 Sat by Pulse Oximetry O2 Sat by Pulse 98 Oximetry [ Assessment] 06/26/19 06/26/19 06/26/19 02:57 02:58 03:00 Temperature Pulse Rate 77 84 Pulse Rate [ From Monitor] Respiratory 16 Rate Blood Pressure 169/113 165/114 O2 Sat by Pulse 98 98 Oximetry O2 Sat by Pulse Oximetry [ Assessment] 06/26/19 06/26/19 06/26/19 03:15 03:16 03:29 Temperature 99.2 F Pulse Rate Pulse Rate [ From Monitor] Respiratory Rate Blood Pressure 164/116 172/117 O2 Sat by Pulse 100 99 Oximetry O2 Sat by Pulse Oximetry [ Assessment] 06/26/19 06/26/19 06/26/19 03:30 03:45 04:00 Temperature Pulse Rate 76 78 Pulse Rate [ 78 From Monitor] Respiratory 17 22 Rate Blood Pressure 172/117 172/117 O2 Sat by Pulse 99 100 Oximetry O2 Sat by Pulse Oximetry [ Assessment] 06/26/19 06/26/19 06/26/19 04:09 04:15 04:30 Temperature Pulse Rate 75 78 74 Pulse Rate [ From Monitor] Respiratory 14 11 L 16 Rate Blood Pressure 172/117 159/113 154/108 O2 Sat by Pulse 100 100 Oximetry O2 Sat by Pulse Oximetry [ Assessment] 06/26/19 06/26/19 06/26/19 04:45 05:00 05:15 Temperature Pulse Rate 74 71 68 Pulse Rate [ From Monitor] Respiratory 18 15 16 Rate Blood Pressure 141/111 163/109 163/109 O2 Sat by Pulse 100 99 Oximetry O2 Sat by Pulse Oximetry [ Assessment] 06/26/19 06/26/19 06/26/19 05:30 05:45 06:00 Temperature Pulse Rate 73 72 78 Pulse Rate [ From Monitor] Respiratory 16 16 16 Rate Blood Pressure 176/109 164/101 156/92 O2 Sat by Pulse 100 100 98 Oximetry O2 Sat by Pulse Oximetry [ Assessment] 06/26/19 06/26/19 06/26/19 06:15 06:30 06:45 Temperature Pulse Rate 77 85 74 Pulse Rate [ From Monitor] Respiratory 16 18 16 Rate Blood Pressure 151/92 154/101 158/92 O2 Sat by Pulse 97 96 97 Oximetry O2 Sat by Pulse Oximetry [ Assessment] 06/26/19 06/26/19 06/26/19 07:00 07:15 07:30 Temperature Pulse Rate 75 89 71 Pulse Rate [ From Monitor] Respiratory 16 13 16 Rate Blood Pressure 158/91 158/88 165/99 O2 Sat by Pulse 100 99 100 Oximetry O2 Sat by Pulse Oximetry [ Assessment] 06/26/19 06/26/19 06/26/19 07:37 07:45 07:50 Temperature Pulse Rate 86 Pulse Rate [ From Monitor] Respiratory 15 Rate Blood Pressure 165/99 157/109 O2 Sat by Pulse 100 100 99 Oximetry O2 Sat by Pulse Oximetry [ Assessment] 06/26/19 06/26/19 08:00 09:51 Temperature 98.5 F Pulse Rate 90 91 H Pulse Rate [ 90 From Monitor] Respiratory 26 H Rate Blood Pressure 152/83 167/103 O2 Sat by Pulse 100 Oximetry O2 Sat by Pulse Oximetry [ Assessment] Constitutional: other (morbidly obese male, critically ill on vent) Eyes: non-icteric ENT: oropharynx moist Neck: other (extremely large in circumference) Effort: normal Ascultation: Bilateral: diminished breath sounds (secondary to body habitus), rhonchi Cardiovascular: regular rate and rhythm (no mrg) Gastrointestinal: normoactive bowel sounds, soft, non-tender, other (obese) Integumentary: other (L hand is wrapped) Extremities: no cyanosis, pink and warm, other (1+ generalized edema) Neurologic: normal mental status, non-focal exam Psychiatric: mood appropriate, affect normal CBC and BMP: 06/26/19 04:43 06/26/19 04:43 ABG, PT/INR, D-dimer: ABG POC ABG pH 7.462 (7.35-7.45) H 06/05/19 03:52 ABG pH 7.469 pH Units (7.350-7.450) H 06/23/19 02:00 POC ABG pCO2 39.8 (35-45) 06/05/19 03:52 ABG pCO2 39.4 mm Hg 06/23/19 02:00 POC ABG pO2 86 (80-105) 06/05/19 03:52 ABG pO2 58.7 mm Hg (80.0-90.0) L 06/23/19 02:00 POC ABG HCO3 28.4 (22-26 mml/L) 06/05/19 03:52 POC ABG Total CO2 30 (23-27mmol/L) 06/05/19 03:52 POC ABG O2 Sat 97 06/05/19 03:52 ABG O2 Saturation 94.6 % (95.0-99.0) L 06/23/19 02:00 PT/INR, D-dimer PT 15.4 Sec. (12.2-14.9) H 05/01/19 Unknown INR 1.23 (0.87-1.13) H 05/01/19 Unknown Abnormal lab findings: Abnormal Labs 05/01/19 05/01/19 05/01/19 17:50 19:26 22:36 WBC RBC Hgb Hct MCV MCH MCHC RDW Plt Count Lymph % (Auto) Hart % (Auto) Eos % (Auto) Lymph # Hart # Eos # Seg Neutrophils % Seg Neuts % (Manual) Lymphocytes % (Manual) Monocytes % (Manual) Eosinophils % (Manual) Nucleated RBC % Seg Neutrophils # Seg Neutrophils # Man Lymphocytes # (Manual) Monocytes # (Manual) Eosinophils # (Manual) PT INR APTT Fibrinogen POC ABG pH 7.272 L 7.331 L ABG pH POC ABG pCO2 52.8 H POC ABG pO2 ABG pO2 ABG HCO3 ABG O2 Saturation ABG Base Excess ABG Hemoglobin Oxyhemoglobin Sodium 136 L Potassium 6.5 H* Chloride 97.2 L Carbon Dioxide BUN 60 H Creatinine Glucose 113 H POC Glucose Uric Acid Calcium Phosphorus Magnesium 2.40 H Iron TIBC AST 139 H ALT 154 H Total Creatine Kinase CK-MB (CK-2) Troponin T NT-Pro-B Natriuret Pep Total Protein Albumin 3.8 L Triglycerides HDL Cholesterol Folate Urine WBC (Auto) Urine Creatinine Urine Total Protein Vancomycin Trough 05/01/19 05/01/19 05/01/19 Unknown Unknown Unknown WBC 16.1 H RBC Hgb Hct MCV MCH MCHC RDW 17.2 H Plt Count Lymph % (Auto) Hart % (Auto) 9.6 H Eos % (Auto) Lymph # Hart # 1.5 H Eos # Seg Neutrophils % 73.0 H Seg Neuts % (Manual) Lymphocytes % (Manual) Monocytes % (Manual) Eosinophils % (Manual) Nucleated RBC % Seg Neutrophils # 11.7 H Seg Neutrophils # Man Lymphocytes # (Manual) Monocytes # (Manual) Eosinophils # (Manual) PT 15.4 H INR 1.23 H APTT 22.7 L Fibrinogen POC ABG pH ABG pH POC ABG pCO2 POC ABG pO2 ABG pO2 ABG HCO3 ABG O2 Saturation ABG Base Excess ABG Hemoglobin Oxyhemoglobin Sodium Potassium Chloride Carbon Dioxide BUN Creatinine Glucose POC Glucose Uric Acid Calcium Phosphorus Magnesium Iron TIBC AST ALT Total Creatine Kinase CK-MB (CK-2) Troponin T NT-Pro-B Natriuret Pep 6831 H Total Protein Albumin Triglycerides HDL Cholesterol Folate Urine WBC (Auto) Urine Creatinine Urine Total Protein Vancomycin Trough 05/01/19 05/02/19 05/02/19 Unknown 00:06 00:06 WBC RBC Hgb Hct MCV MCH MCHC RDW Plt Count Lymph % (Auto) Hart % (Auto) Eos % (Auto) Lymph # Hart # Eos # Seg Neutrophils % Seg Neuts % (Manual) Lymphocytes % (Manual) Monocytes % (Manual) Eosinophils % (Manual) Nucleated RBC % Seg Neutrophils # Seg Neutrophils # Man Lymphocytes # (Manual) Monocytes # (Manual) Eosinophils # (Manual) PT INR APTT Fibrinogen POC ABG pH ABG pH POC ABG pCO2 POC ABG pO2 ABG pO2 ABG HCO3 ABG O2 Saturation ABG Base Excess ABG Hemoglobin Oxyhemoglobin Sodium Potassium Chloride Carbon Dioxide BUN Creatinine Glucose POC Glucose Uric Acid Calcium Phosphorus 4.90 H Magnesium Iron TIBC AST ALT Total Creatine Kinase 226 H CK-MB (CK-2) 5.7 H Troponin T 0.044 H NT-Pro-B Natriuret Pep Total Protein Albumin Triglycerides 182 H HDL Cholesterol 18 L Folate Urine WBC (Auto) Urine Creatinine Urine Total Protein Vancomycin Trough 05/02/19 05/02/19 05/02/19 02:08 04:40 04:41 WBC 17.6 H RBC Hgb Hct MCV MCH 27 L MCHC RDW 17.4 H Plt Count Lymph % (Auto) 10.2 L Hart % (Auto) 11.0 H Eos % (Auto) Lymph # Hart # 1.9 H Eos # Seg Neutrophils % 78.0 H Seg Neuts % (Manual) Lymphocytes % (Manual) Monocytes % (Manual) Eosinophils % (Manual) Nucleated RBC % Seg Neutrophils # 13.8 H Seg Neutrophils # Man Lymphocytes # (Manual) Monocytes # (Manual) Eosinophils # (Manual) PT INR APTT Fibrinogen POC ABG pH ABG pH POC ABG pCO2 46.8 H POC ABG pO2 63 L ABG pO2 ABG HCO3 ABG O2 Saturation ABG Base Excess ABG Hemoglobin Oxyhemoglobin Sodium Potassium Chloride 96.3 L Carbon Dioxide BUN 63 H Creatinine 1.7 H Glucose POC Glucose Uric Acid Calcium Phosphorus Magnesium Iron TIBC AST ALT Total Creatine Kinase CK-MB (CK-2) Troponin T NT-Pro-B Natriuret Pep Total Protein Albumin Triglycerides HDL Cholesterol Folate Urine WBC (Auto) Urine Creatinine Urine Total Protein Vancomycin Trough 05/02/19 05/02/19 05/02/19 04:41 04:41 16:05 WBC RBC Hgb Hct MCV MCH MCHC RDW Plt Count Lymph % (Auto) Hart % (Auto) Eos % (Auto) Lymph # Hart # Eos # Seg Neutrophils % Seg Neuts % (Manual) Lymphocytes % (Manual) Monocytes % (Manual) Eosinophils % (Manual) Nucleated RBC % Seg Neutrophils # Seg Neutrophils # Man Lymphocytes # (Manual) Monocytes # (Manual) Eosinophils # (Manual) PT INR APTT Fibrinogen POC ABG pH ABG pH POC ABG pCO2 POC ABG pO2 ABG pO2 66.6 L ABG HCO3 31.9 H ABG O2 Saturation 92.5 L ABG Base Excess 5.8 H ABG Hemoglobin 13.3 L Oxyhemoglobin 90.6 L Sodium Potassium Chloride 97.2 L Carbon Dioxide BUN 61 H Creatinine 1.8 H Glucose POC Glucose Uric Acid Calcium Phosphorus Magnesium Iron TIBC AST ALT Total Creatine Kinase CK-MB (CK-2) 5.2 H Troponin T 0.067 H D NT-Pro-B Natriuret Pep Total Protein Albumin Triglycerides HDL Cholesterol Folate Urine WBC (Auto) Urine Creatinine Urine Total Protein Vancomycin Trough 05/02/19 05/03/19 05/03/19 20:39 04:35 05:05 WBC 11.8 H RBC Hgb Hct MCV MCH 27 L MCHC 31 L RDW 17.2 H Plt Count Lymph % (Auto) Hart % (Auto) Eos % (Auto) Lymph # Hart # Eos # Seg Neutrophils % Seg Neuts % (Manual) Lymphocytes % (Manual) Monocytes % (Manual) Eosinophils % (Manual) Nucleated RBC % Seg Neutrophils # Seg Neutrophils # Man Lymphocytes # (Manual) Monocytes # (Manual) Eosinophils # (Manual) PT INR APTT Fibrinogen POC ABG pH ABG pH POC ABG pCO2 53.6 H 54.0 H POC ABG pO2 55 L 63 L ABG pO2 ABG HCO3 ABG O2 Saturation ABG Base Excess ABG Hemoglobin Oxyhemoglobin Sodium Potassium Chloride Carbon Dioxide BUN Creatinine Glucose POC Glucose Uric Acid Calcium Phosphorus Magnesium Iron TIBC AST ALT Total Creatine Kinase CK-MB (CK-2) Troponin T NT-Pro-B Natriuret Pep Total Protein Albumin Triglycerides HDL Cholesterol Folate Urine WBC (Auto) Urine Creatinine Urine Total Protein Vancomycin Trough 05/03/19 05/03/19 05/03/19 05:05 10:55 16:48 WBC RBC Hgb Hct MCV MCH MCHC RDW Plt Count Lymph % (Auto) Hart % (Auto) Eos % (Auto) Lymph # Hart # Eos # Seg Neutrophils % Seg Neuts % (Manual) Lymphocytes % (Manual) Monocytes % (Manual) Eosinophils % (Manual) Nucleated RBC % Seg Neutrophils # Seg Neutrophils # Man Lymphocytes # (Manual) Monocytes # (Manual) Eosinophils # (Manual) PT INR APTT Fibrinogen POC ABG pH 7.604 H ABG pH POC ABG pCO2 POC ABG pO2 58 L ABG pO2 ABG HCO3 ABG O2 Saturation ABG Base Excess ABG Hemoglobin Oxyhemoglobin Sodium Potassium Chloride Carbon Dioxide BUN 52 H Creatinine 1.9 H Glucose 103 H POC Glucose Uric Acid Calcium Phosphorus Magnesium Iron TIBC AST ALT Total Creatine Kinase CK-MB (CK-2) Troponin T NT-Pro-B Natriuret Pep Total Protein Albumin Triglycerides HDL Cholesterol Folate Urine WBC (Auto) 33.0 H Urine Creatinine Urine Total Protein Vancomycin Trough 05/04/19 05/04/19 05/04/19 04:49 06:50 06:50 WBC 16.0 H RBC Hgb Hct MCV MCH 27 L MCHC 31 L RDW 17.8 H Plt Count Lymph % (Auto) Hart % (Auto) Eos % (Auto) Lymph # Hart # Eos # Seg Neutrophils % Seg Neuts % (Manual) Lymphocytes % (Manual) Monocytes % (Manual) Eosinophils % (Manual) Nucleated RBC % Seg Neutrophils # Seg Neutrophils # Man Lymphocytes # (Manual) Monocytes # (Manual) Eosinophils # (Manual) PT INR APTT Fibrinogen POC ABG pH 7.273 L ABG pH POC ABG pCO2 POC ABG pO2 ABG pO2 ABG HCO3 ABG O2 Saturation ABG Base Excess ABG Hemoglobin Oxyhemoglobin Sodium 148 H Potassium 5.5 H Chloride Carbon Dioxide BUN 53 H Creatinine 3.3 H D Glucose 106 H POC Glucose Uric Acid Calcium 8.3 L Phosphorus Magnesium Iron TIBC AST ALT Total Creatine Kinase CK-MB (CK-2) Troponin T NT-Pro-B Natriuret Pep Total Protein Albumin Triglycerides HDL Cholesterol Folate Urine WBC (Auto) Urine Creatinine Urine Total Protein Vancomycin Trough 05/05/19 05/05/19 05/05/19 00:05 04:30 05:00 WBC RBC Hgb Hct MCV MCH MCHC RDW Plt Count Lymph % (Auto) Hart % (Auto) Eos % (Auto) Lymph # Hart # Eos # Seg Neutrophils % Seg Neuts % (Manual) Lymphocytes % (Manual) Monocytes % (Manual) Eosinophils % (Manual) Nucleated RBC % Seg Neutrophils # Seg Neutrophils # Man Lymphocytes # (Manual) Monocytes # (Manual) Eosinophils # (Manual) PT INR APTT Fibrinogen POC ABG pH 7.225 L ABG pH POC ABG pCO2 > 70 H POC ABG pO2 ABG pO2 ABG HCO3 ABG O2 Saturation ABG Base Excess ABG Hemoglobin Oxyhemoglobin Sodium 151 H Potassium 5.1 H Chloride Carbon Dioxide BUN 64 H Creatinine 3.5 H Glucose 117 H POC Glucose 141 H Uric Acid Calcium 7.5 L Phosphorus Magnesium Iron TIBC AST 93 H ALT 65 H Total Creatine Kinase CK-MB (CK-2) Troponin T NT-Pro-B Natriuret Pep Total Protein Albumin 2.9 L Triglycerides HDL Cholesterol Folate Urine WBC (Auto) Urine Creatinine Urine Total Protein Vancomycin Trough 05/05/19 05/05/19 05/05/19 05:00 12:02 17:46 WBC 12.0 H RBC Hgb 11.3 L Hct MCV MCH 27 L MCHC 30 L RDW 18.4 H Plt Count Lymph % (Auto) 7.9 L Hart % (Auto) 10.2 H Eos % (Auto) Lymph # 1.0 L Hart # 1.2 H Eos # Seg Neutrophils % 80.8 H Seg Neuts % (Manual) Lymphocytes % (Manual) Monocytes % (Manual) Eosinophils % (Manual) Nucleated RBC % Seg Neutrophils # 9.7 H Seg Neutrophils # Man Lymphocytes # (Manual) Monocytes # (Manual) Eosinophils # (Manual) PT INR APTT Fibrinogen POC ABG pH ABG pH POC ABG pCO2 POC ABG pO2 ABG pO2 ABG HCO3 ABG O2 Saturation ABG Base Excess ABG Hemoglobin Oxyhemoglobin Sodium Potassium Chloride Carbon Dioxide BUN Creatinine Glucose POC Glucose 125 H 112 H Uric Acid Calcium Phosphorus Magnesium Iron TIBC AST ALT Total Creatine Kinase CK-MB (CK-2) Troponin T NT-Pro-B Natriuret Pep Total Protein Albumin Triglycerides HDL Cholesterol Folate Urine WBC (Auto) Urine Creatinine Urine Total Protein Vancomycin Trough 05/05/19 05/06/19 05/06/19 23:42 03:58 04:45 WBC 11.4 H RBC Hgb 10.7 L Hct 34.2 L MCV MCH 27 L MCHC 31 L RDW 16.9 H Plt Count Lymph % (Auto) Hart % (Auto) Eos % (Auto) Lymph # Hart # Eos # Seg Neutrophils % Seg Neuts % (Manual) Lymphocytes % (Manual) Monocytes % (Manual) Eosinophils % (Manual) Nucleated RBC % Seg Neutrophils # Seg Neutrophils # Man Lymphocytes # (Manual) Monocytes # (Manual) Eosinophils # (Manual) PT INR APTT Fibrinogen POC ABG pH ABG pH POC ABG pCO2 62.4 H POC ABG pO2 111 H ABG pO2 ABG HCO3 ABG O2 Saturation ABG Base Excess ABG Hemoglobin Oxyhemoglobin Sodium Potassium Chloride Carbon Dioxide BUN Creatinine Glucose POC Glucose 128 H Uric Acid Calcium Phosphorus Magnesium Iron TIBC AST ALT Total Creatine Kinase CK-MB (CK-2) Troponin T NT-Pro-B Natriuret Pep Total Protein Albumin Triglycerides HDL Cholesterol Folate Urine WBC (Auto) Urine Creatinine Urine Total Protein Vancomycin Trough 05/06/19 05/06/19 05/06/19 04:45 05:33 12:30 WBC RBC Hgb Hct MCV MCH MCHC RDW Plt Count Lymph % (Auto) Hart % (Auto) Eos % (Auto) Lymph # Hart # Eos # Seg Neutrophils % Seg Neuts % (Manual) Lymphocytes % (Manual) Monocytes % (Manual) Eosinophils % (Manual) Nucleated RBC % Seg Neutrophils # Seg Neutrophils # Man Lymphocytes # (Manual) Monocytes # (Manual) Eosinophils # (Manual) PT INR APTT Fibrinogen POC ABG pH ABG pH POC ABG pCO2 POC ABG pO2 ABG pO2 ABG HCO3 ABG O2 Saturation ABG Base Excess ABG Hemoglobin Oxyhemoglobin Sodium 149 H Potassium Chloride Carbon Dioxide 31 H BUN 67 H Creatinine 3.2 H Glucose 125 H POC Glucose 117 H 116 H Uric Acid Calcium 7.5 L Phosphorus Magnesium Iron TIBC AST ALT Total Creatine Kinase CK-MB (CK-2) Troponin T NT-Pro-B Natriuret Pep Total Protein Albumin Triglycerides HDL Cholesterol Folate Urine WBC (Auto) Urine Creatinine Urine Total Protein Vancomycin Trough 05/06/19 05/06/19 05/07/19 18:34 23:16 05:22 WBC RBC Hgb Hct MCV MCH MCHC RDW Plt Count Lymph % (Auto) Hart % (Auto) Eos % (Auto) Lymph # Hart # Eos # Seg Neutrophils % Seg Neuts % (Manual) Lymphocytes % (Manual) Monocytes % (Manual) Eosinophils % (Manual) Nucleated RBC % Seg Neutrophils # Seg Neutrophils # Man Lymphocytes # (Manual) Monocytes # (Manual) Eosinophils # (Manual) PT INR APTT Fibrinogen POC ABG pH ABG pH POC ABG pCO2 POC ABG pO2 ABG pO2 ABG HCO3 ABG O2 Saturation ABG Base Excess ABG Hemoglobin Oxyhemoglobin Sodium Potassium Chloride Carbon Dioxide BUN Creatinine Glucose POC Glucose 128 H 143 H 166 H Uric Acid Calcium Phosphorus Magnesium Iron TIBC AST ALT Total Creatine Kinase CK-MB (CK-2) Troponin T NT-Pro-B Natriuret Pep Total Protein Albumin Triglycerides HDL Cholesterol Folate Urine WBC (Auto) Urine Creatinine Urine Total Protein Vancomycin Trough 05/07/19 05/07/19 05/07/19 06:33 07:03 09:35 WBC RBC Hgb Hct MCV MCH MCHC RDW Plt Count Lymph % (Auto) Hart % (Auto) Eos % (Auto) Lymph # Hart # Eos # Seg Neutrophils % Seg Neuts % (Manual) Lymphocytes % (Manual) Monocytes % (Manual) Eosinophils % (Manual) Nucleated RBC % Seg Neutrophils # Seg Neutrophils # Man Lymphocytes # (Manual) Monocytes # (Manual) Eosinophils # (Manual) PT INR APTT Fibrinogen POC ABG pH 7.263 L 7.288 L ABG pH POC ABG pCO2 POC ABG pO2 51 L 56 L ABG pO2 ABG HCO3 ABG O2 Saturation ABG Base Excess ABG Hemoglobin Oxyhemoglobin Sodium Potassium Chloride Carbon Dioxide BUN 76 H Creatinine 3.2 H Glucose 147 H POC Glucose Uric Acid Calcium 7.9 L Phosphorus Magnesium Iron TIBC AST ALT Total Creatine Kinase CK-MB (CK-2) Troponin T NT-Pro-B Natriuret Pep Total Protein Albumin Triglycerides HDL Cholesterol Folate Urine WBC (Auto) Urine Creatinine Urine Total Protein Vancomycin Trough 05/07/19 05/07/19 05/07/19 09:35 12:17 13:45 WBC 13.4 H RBC Hgb 11.6 L Hct MCV MCH 27 L MCHC 31 L RDW 17.5 H Plt Count Lymph % (Auto) Hart % (Auto) Eos % (Auto) Lymph # Hart # Eos # Seg Neutrophils % Seg Neuts % (Manual) Lymphocytes % (Manual) Monocytes % (Manual) Eosinophils % (Manual) Nucleated RBC % Seg Neutrophils # Seg Neutrophils # Man Lymphocytes # (Manual) Monocytes # (Manual) Eosinophils # (Manual) PT INR APTT Fibrinogen POC ABG pH ABG pH POC ABG pCO2 POC ABG pO2 ABG pO2 ABG HCO3 ABG O2 Saturation ABG Base Excess ABG Hemoglobin Oxyhemoglobin Sodium Potassium Chloride Carbon Dioxide BUN Creatinine Glucose POC Glucose 130 H Uric Acid 18.0 H Calcium Phosphorus Magnesium Iron TIBC AST ALT Total Creatine Kinase CK-MB (CK-2) Troponin T NT-Pro-B Natriuret Pep Total Protein Albumin Triglycerides HDL Cholesterol Folate Urine WBC (Auto) Urine Creatinine Urine Total Protein Vancomycin Trough 05/07/19 05/07/19 05/08/19 17:39 22:40 05:06 WBC RBC Hgb Hct MCV MCH MCHC RDW Plt Count Lymph % (Auto) Hart % (Auto) Eos % (Auto) Lymph # Hart # Eos # Seg Neutrophils % Seg Neuts % (Manual) Lymphocytes % (Manual) Monocytes % (Manual) Eosinophils % (Manual) Nucleated RBC % Seg Neutrophils # Seg Neutrophils # Man Lymphocytes # (Manual) Monocytes # (Manual) Eosinophils # (Manual) PT INR APTT Fibrinogen POC ABG pH ABG pH POC ABG pCO2 POC ABG pO2 ABG pO2 ABG HCO3 ABG O2 Saturation ABG Base Excess ABG Hemoglobin Oxyhemoglobin Sodium Potassium Chloride Carbon Dioxide BUN Creatinine Glucose POC Glucose 116 H 148 H Uric Acid Calcium Phosphorus Magnesium Iron TIBC AST ALT Total Creatine Kinase CK-MB (CK-2) Troponin T NT-Pro-B Natriuret Pep Total Protein Albumin Triglycerides HDL Cholesterol Folate Urine WBC (Auto) Urine Creatinine 292.8 H Urine Total Protein 269 H Vancomycin Trough 05/08/19 05/08/19 05/08/19 05:32 11:28 13:48 WBC RBC Hgb Hct MCV MCH MCHC RDW Plt Count Lymph % (Auto) Hart % (Auto) Eos % (Auto) Lymph # Hart # Eos # Seg Neutrophils % Seg Neuts % (Manual) Lymphocytes % (Manual) Monocytes % (Manual) Eosinophils % (Manual) Nucleated RBC % Seg Neutrophils # Seg Neutrophils # Man Lymphocytes # (Manual) Monocytes # (Manual) Eosinophils # (Manual) PT INR APTT Fibrinogen POC ABG pH ABG pH POC ABG pCO2 45.4 H POC ABG pO2 64 L ABG pO2 ABG HCO3 ABG O2 Saturation ABG Base Excess ABG Hemoglobin Oxyhemoglobin Sodium Potassium Chloride Carbon Dioxide BUN 73 H Creatinine 2.7 H Glucose 127 H POC Glucose 107 H Uric Acid Calcium 7.6 L Phosphorus Magnesium Iron TIBC AST ALT Total Creatine Kinase CK-MB (CK-2) Troponin T NT-Pro-B Natriuret Pep Total Protein Albumin Triglycerides HDL Cholesterol Folate Urine WBC (Auto) Urine Creatinine Urine Total Protein Vancomycin Trough 05/08/19 05/09/19 05/09/19 17:48 04:50 04:53 WBC RBC 3.07 L Hgb 8.5 L D Hct 29.3 L D MCV 96 H MCH MCHC 29 L RDW 18.1 H Plt Count Lymph % (Auto) Hart % (Auto) Eos % (Auto) Lymph # Hart # Eos # Seg Neutrophils % Seg Neuts % (Manual) Lymphocytes % (Manual) Monocytes % (Manual) Eosinophils % (Manual) Nucleated RBC % Seg Neutrophils # Seg Neutrophils # Man Lymphocytes # (Manual) Monocytes # (Manual) Eosinophils # (Manual) PT INR APTT Fibrinogen POC ABG pH 7.316 L ABG pH POC ABG pCO2 66.0 H POC ABG pO2 69 L ABG pO2 ABG HCO3 ABG O2 Saturation ABG Base Excess ABG Hemoglobin Oxyhemoglobin Sodium Potassium Chloride Carbon Dioxide BUN Creatinine Glucose POC Glucose 155 H Uric Acid Calcium Phosphorus Magnesium Iron TIBC AST ALT Total Creatine Kinase CK-MB (CK-2) Troponin T NT-Pro-B Natriuret Pep Total Protein Albumin Triglycerides HDL Cholesterol Folate Urine WBC (Auto) Urine Creatinine Urine Total Protein Vancomycin Trough 05/09/19 05/09/19 05/09/19 05:46 07:24 12:10 WBC RBC Hgb Hct MCV MCH MCHC RDW Plt Count Lymph % (Auto) Hart % (Auto) Eos % (Auto) Lymph # Hart # Eos # Seg Neutrophils % Seg Neuts % (Manual) Lymphocytes % (Manual) Monocytes % (Manual) Eosinophils % (Manual) Nucleated RBC % Seg Neutrophils # Seg Neutrophils # Man Lymphocytes # (Manual) Monocytes # (Manual) Eosinophils # (Manual) PT INR APTT Fibrinogen POC ABG pH ABG pH POC ABG pCO2 POC ABG pO2 ABG pO2 ABG HCO3 ABG O2 Saturation ABG Base Excess ABG Hemoglobin Oxyhemoglobin Sodium Potassium Chloride Carbon Dioxide BUN 73 H Creatinine 2.4 H Glucose 153 H POC Glucose 123 H 148 H Uric Acid Calcium 8.2 L Phosphorus Magnesium Iron TIBC AST 45 H ALT Total Creatine Kinase CK-MB (CK-2) Troponin T NT-Pro-B Natriuret Pep Total Protein 6.0 L Albumin 1.9 L Triglycerides HDL Cholesterol Folate Urine WBC (Auto) Urine Creatinine Urine Total Protein Vancomycin Trough 05/09/19 05/09/19 05/10/19 18:23 23:26 04:52 WBC RBC Hgb Hct MCV MCH MCHC RDW Plt Count Lymph % (Auto) Hart % (Auto) Eos % (Auto) Lymph # Hart # Eos # Seg Neutrophils % Seg Neuts % (Manual) Lymphocytes % (Manual) Monocytes % (Manual) Eosinophils % (Manual) Nucleated RBC % Seg Neutrophils # Seg Neutrophils # Man Lymphocytes # (Manual) Monocytes # (Manual) Eosinophils # (Manual) PT INR APTT Fibrinogen POC ABG pH 7.305 L ABG pH POC ABG pCO2 62.6 H POC ABG pO2 ABG pO2 ABG HCO3 ABG O2 Saturation ABG Base Excess ABG Hemoglobin Oxyhemoglobin Sodium Potassium Chloride Carbon Dioxide BUN Creatinine Glucose POC Glucose 147 H 121 H Uric Acid Calcium Phosphorus Magnesium Iron TIBC AST ALT Total Creatine Kinase CK-MB (CK-2) Troponin T NT-Pro-B Natriuret Pep Total Protein Albumin Triglycerides HDL Cholesterol Folate Urine WBC (Auto) Urine Creatinine Urine Total Protein Vancomycin Trough 05/10/19 05/10/19 05/10/19 05:00 05:00 05:50 WBC RBC Hgb 10.3 L Hct 33.7 L MCV MCH 27 L MCHC 31 L RDW 17.0 H Plt Count Lymph % (Auto) Hart % (Auto) Eos % (Auto) Lymph # Hart # Eos # Seg Neutrophils % Seg Neuts % (Manual) Lymphocytes % (Manual) Monocytes % (Manual) Eosinophils % (Manual) Nucleated RBC % Seg Neutrophils # Seg Neutrophils # Man Lymphocytes # (Manual) Monocytes # (Manual) Eosinophils # (Manual) PT INR APTT Fibrinogen POC ABG pH ABG pH POC ABG pCO2 POC ABG pO2 ABG pO2 ABG HCO3 ABG O2 Saturation ABG Base Excess ABG Hemoglobin Oxyhemoglobin Sodium 147 H Potassium Chloride Carbon Dioxide BUN 70 H Creatinine 2.6 H Glucose 155 H POC Glucose 158 H Uric Acid Calcium 8.2 L Phosphorus Magnesium Iron TIBC AST ALT Total Creatine Kinase CK-MB (CK-2) Troponin T NT-Pro-B Natriuret Pep Total Protein 6.1 L Albumin 2.5 L Triglycerides HDL Cholesterol Folate Urine WBC (Auto) Urine Creatinine Urine Total Protein Vancomycin Trough 05/10/19 05/11/19 05/11/19 13:14 07:26 11:40 WBC RBC Hgb Hct MCV MCH MCHC RDW Plt Count Lymph % (Auto) Hart % (Auto) Eos % (Auto) Lymph # Hart # Eos # Seg Neutrophils % Seg Neuts % (Manual) Lymphocytes % (Manual) Monocytes % (Manual) Eosinophils % (Manual) Nucleated RBC % Seg Neutrophils # Seg Neutrophils # Man Lymphocytes # (Manual) Monocytes # (Manual) Eosinophils # (Manual) PT INR APTT Fibrinogen POC ABG pH ABG pH POC ABG pCO2 48.0 H POC ABG pO2 58 L ABG pO2 ABG HCO3 ABG O2 Saturation ABG Base Excess ABG Hemoglobin Oxyhemoglobin Sodium 147 H Potassium Chloride 107.2 H Carbon Dioxide BUN 67 H Creatinine 2.6 H Glucose 121 H POC Glucose 159 H Uric Acid Calcium Phosphorus Magnesium Iron TIBC AST ALT Total Creatine Kinase CK-MB (CK-2) Troponin T NT-Pro-B Natriuret Pep Total Protein Albumin Triglycerides HDL Cholesterol Folate Urine WBC (Auto) Urine Creatinine Urine Total Protein Vancomycin Trough 05/11/19 05/11/19 05/12/19 18:13 23:46 04:40 WBC RBC Hgb Hct MCV MCH MCHC RDW Plt Count Lymph % (Auto) Hart % (Auto) Eos % (Auto) Lymph # Hart # Eos # Seg Neutrophils % Seg Neuts % (Manual) Lymphocytes % (Manual) Monocytes % (Manual) Eosinophils % (Manual) Nucleated RBC % Seg Neutrophils # Seg Neutrophils # Man Lymphocytes # (Manual) Monocytes # (Manual) Eosinophils # (Manual) PT INR APTT Fibrinogen POC ABG pH ABG pH 7.264 L POC ABG pCO2 POC ABG pO2 ABG pO2 66.8 L ABG HCO3 31.0 H ABG O2 Saturation 92.0 L ABG Base Excess ABG Hemoglobin 10.3 L Oxyhemoglobin 90.1 L Sodium Potassium Chloride Carbon Dioxide BUN Creatinine Glucose POC Glucose 120 H 121 H Uric Acid Calcium Phosphorus Magnesium Iron TIBC AST ALT Total Creatine Kinase CK-MB (CK-2) Troponin T NT-Pro-B Natriuret Pep Total Protein Albumin Triglycerides HDL Cholesterol Folate Urine WBC (Auto) Urine Creatinine Urine Total Protein Vancomycin Trough 05/12/19 05/12/19 05/12/19 04:45 04:45 11:14 WBC RBC Hgb 10.2 L Hct 32.4 L MCV MCH MCHC 31 L RDW 17.2 H Plt Count Lymph % (Auto) Hart % (Auto) Eos % (Auto) Lymph # Hart # Eos # Seg Neutrophils % Seg Neuts % (Manual) Lymphocytes % (Manual) Monocytes % (Manual) Eosinophils % (Manual) Nucleated RBC % Seg Neutrophils # Seg Neutrophils # Man Lymphocytes # (Manual) Monocytes # (Manual) Eosinophils # (Manual) PT INR APTT Fibrinogen POC ABG pH 7.284 L ABG pH POC ABG pCO2 67.8 H POC ABG pO2 ABG pO2 ABG HCO3 ABG O2 Saturation ABG Base Excess ABG Hemoglobin Oxyhemoglobin Sodium Potassium Chloride Carbon Dioxide BUN 63 H Creatinine 2.4 H Glucose 110 H POC Glucose Uric Acid Calcium Phosphorus Magnesium Iron TIBC AST ALT Total Creatine Kinase CK-MB (CK-2) Troponin T NT-Pro-B Natriuret Pep Total Protein Albumin Triglycerides HDL Cholesterol Folate Urine WBC (Auto) Urine Creatinine Urine Total Protein Vancomycin Trough 05/12/19 05/12/19 05/13/19 11:44 23:11 04:30 WBC RBC Hgb Hct MCV MCH MCHC RDW Plt Count Lymph % (Auto) Hart % (Auto) Eos % (Auto) Lymph # Hart # Eos # Seg Neutrophils % Seg Neuts % (Manual) Lymphocytes % (Manual) Monocytes % (Manual) Eosinophils % (Manual) Nucleated RBC % Seg Neutrophils # Seg Neutrophils # Man Lymphocytes # (Manual) Monocytes # (Manual) Eosinophils # (Manual) PT INR APTT Fibrinogen POC ABG pH ABG pH 7.288 L POC ABG pCO2 POC ABG pO2 ABG pO2 109.7 H ABG HCO3 30.9 H ABG O2 Saturation ABG Base Excess 3.2 H ABG Hemoglobin 9.6 L Oxyhemoglobin Sodium Potassium Chloride Carbon Dioxide BUN Creatinine Glucose POC Glucose 126 H 147 H Uric Acid Calcium Phosphorus Magnesium Iron TIBC AST ALT Total Creatine Kinase CK-MB (CK-2) Troponin T NT-Pro-B Natriuret Pep Total Protein Albumin Triglycerides HDL Cholesterol Folate Urine WBC (Auto) Urine Creatinine Urine Total Protein Vancomycin Trough 05/13/19 05/13/19 05/14/19 06:27 11:58 04:00 WBC RBC 3.16 L Hgb 9.3 L Hct 27.9 L MCV MCH MCHC RDW 17.1 H Plt Count Lymph % (Auto) Hart % (Auto) Eos % (Auto) Lymph # Hart # Eos # Seg Neutrophils % Seg Neuts % (Manual) Lymphocytes % (Manual) Monocytes % (Manual) Eosinophils % (Manual) Nucleated RBC % Seg Neutrophils # Seg Neutrophils # Man Lymphocytes # (Manual) Monocytes # (Manual) Eosinophils # (Manual) PT INR APTT Fibrinogen POC ABG pH ABG pH POC ABG pCO2 POC ABG pO2 ABG pO2 ABG HCO3 ABG O2 Saturation ABG Base Excess ABG Hemoglobin Oxyhemoglobin Sodium Potassium Chloride Carbon Dioxide BUN Creatinine Glucose POC Glucose 113 H 130 H Uric Acid Calcium Phosphorus Magnesium Iron TIBC AST ALT Total Creatine Kinase CK-MB (CK-2) Troponin T NT-Pro-B Natriuret Pep Total Protein Albumin Triglycerides HDL Cholesterol Folate Urine WBC (Auto) Urine Creatinine Urine Total Protein Vancomycin Trough 05/14/19 05/14/19 05/14/19 04:00 04:34 05:32 WBC RBC Hgb Hct MCV MCH MCHC RDW Plt Count Lymph % (Auto) Hart % (Auto) Eos % (Auto) Lymph # Hart # Eos # Seg Neutrophils % Seg Neuts % (Manual) Lymphocytes % (Manual) Monocytes % (Manual) Eosinophils % (Manual) Nucleated RBC % Seg Neutrophils # Seg Neutrophils # Man Lymphocytes # (Manual) Monocytes # (Manual) Eosinophils # (Manual) PT INR APTT Fibrinogen POC ABG pH 7.328 L ABG pH POC ABG pCO2 61.7 H POC ABG pO2 ABG pO2 ABG HCO3 ABG O2 Saturation ABG Base Excess ABG Hemoglobin Oxyhemoglobin Sodium 135 L D Potassium Chloride Carbon Dioxide BUN 57 H Creatinine 2.2 H Glucose 115 H POC Glucose 115 H Uric Acid Calcium 8.1 L Phosphorus Magnesium Iron TIBC AST ALT Total Creatine Kinase CK-MB (CK-2) Troponin T NT-Pro-B Natriuret Pep Total Protein Albumin Triglycerides HDL Cholesterol Folate Urine WBC (Auto) Urine Creatinine Urine Total Protein Vancomycin Trough 05/14/19 05/15/19 05/15/19 12:11 05:10 05:24 WBC RBC Hgb Hct MCV MCH MCHC RDW Plt Count Lymph % (Auto) Hart % (Auto) Eos % (Auto) Lymph # Hart # Eos # Seg Neutrophils % Seg Neuts % (Manual) Lymphocytes % (Manual) Monocytes % (Manual) Eosinophils % (Manual) Nucleated RBC % Seg Neutrophils # Seg Neutrophils # Man Lymphocytes # (Manual) Monocytes # (Manual) Eosinophils # (Manual) PT INR APTT Fibrinogen POC ABG pH ABG pH 7.342 L POC ABG pCO2 POC ABG pO2 ABG pO2 79.1 L ABG HCO3 28.2 H ABG O2 Saturation ABG Base Excess ABG Hemoglobin 7.0 L Oxyhemoglobin 94.4 L Sodium Potassium Chloride Carbon Dioxide BUN Creatinine Glucose POC Glucose 110 H 116 H Uric Acid Calcium Phosphorus Magnesium Iron TIBC AST ALT Total Creatine Kinase CK-MB (CK-2) Troponin T NT-Pro-B Natriuret Pep Total Protein Albumin Triglycerides HDL Cholesterol Folate Urine WBC (Auto) Urine Creatinine Urine Total Protein Vancomycin Trough 05/15/19 05/15/19 05/16/19 09:00 18:12 04:50 WBC RBC Hgb Hct MCV MCH MCHC RDW Plt Count Lymph % (Auto) Hart % (Auto) Eos % (Auto) Lymph # Hart # Eos # Seg Neutrophils % Seg Neuts % (Manual) Lymphocytes % (Manual) Monocytes % (Manual) Eosinophils % (Manual) Nucleated RBC % Seg Neutrophils # Seg Neutrophils # Man Lymphocytes # (Manual) Monocytes # (Manual) Eosinophils # (Manual) PT INR APTT Fibrinogen POC ABG pH ABG pH 7.250 L POC ABG pCO2 POC ABG pO2 ABG pO2 76.4 L ABG HCO3 ABG O2 Saturation 94.6 L ABG Base Excess -3.1 L ABG Hemoglobin 9.7 L Oxyhemoglobin 92.4 L Sodium Potassium Chloride Carbon Dioxide BUN Creatinine Glucose POC Glucose 110 H Uric Acid Calcium Phosphorus Magnesium Iron TIBC AST ALT Total Creatine Kinase CK-MB (CK-2) Troponin T NT-Pro-B Natriuret Pep Total Protein Albumin Triglycerides HDL Cholesterol Folate Urine WBC (Auto) Urine Creatinine Urine Total Protein Vancomycin Trough 20.5 H 05/16/19 05/16/19 05/17/19 05:50 05:50 04:20 WBC RBC 3.36 L 3.44 L Hgb 9.4 L 9.3 L Hct 29.1 L 29.7 L MCV MCH 27 L MCHC 31 L RDW 17.6 H 17.6 H Plt Count Lymph % (Auto) Hart % (Auto) Eos % (Auto) Lymph # Hart # Eos # Seg Neutrophils % Seg Neuts % (Manual) 77.0 H Lymphocytes % (Manual) 5.0 L Monocytes % (Manual) Eosinophils % (Manual) 10.0 H Nucleated RBC % Seg Neutrophils # Seg Neutrophils # Man Lymphocytes # (Manual) 0.5 L Monocytes # (Manual) Eosinophils # (Manual) 0.9 H PT INR APTT Fibrinogen POC ABG pH ABG pH POC ABG pCO2 POC ABG pO2 ABG pO2 ABG HCO3 ABG O2 Saturation ABG Base Excess ABG Hemoglobin Oxyhemoglobin Sodium Potassium Chloride Carbon Dioxide BUN 83 H Creatinine 4.4 H D Glucose 118 H POC Glucose Uric Acid Calcium Phosphorus Magnesium Iron TIBC AST ALT Total Creatine Kinase CK-MB (CK-2) Troponin T NT-Pro-B Natriuret Pep Total Protein Albumin Triglycerides HDL Cholesterol Folate Urine WBC (Auto) Urine Creatinine Urine Total Protein Vancomycin Trough 05/17/19 05/17/19 05/18/19 04:30 Unknown 01:50 WBC RBC 3.49 L Hgb 9.4 L Hct 30.0 L MCV MCH 27 L MCHC 31 L RDW 17.8 H Plt Count Lymph % (Auto) 7.9 L Hart % (Auto) 15.4 H Eos % (Auto) 6.3 H Lymph # 0.7 L Hart # 1.4 H Eos # 0.6 H Seg Neutrophils % 70.2 H Seg Neuts % (Manual) Lymphocytes % (Manual) Monocytes % (Manual) Eosinophils % (Manual) Nucleated RBC % Seg Neutrophils # Seg Neutrophils # Man Lymphocytes # (Manual) Monocytes # (Manual) Eosinophils # (Manual) PT INR APTT Fibrinogen POC ABG pH ABG pH 7.272 L POC ABG pCO2 POC ABG pO2 ABG pO2 75.7 L ABG HCO3 ABG O2 Saturation 93.8 L ABG Base Excess -3.0 L ABG Hemoglobin 7.8 L Oxyhemoglobin 91.6 L Sodium Potassium 5.2 H Chloride Carbon Dioxide BUN 96 H Creatinine 5.7 H Glucose 112 H POC Glucose Uric Acid Calcium Phosphorus Magnesium Iron TIBC AST ALT Total Creatine Kinase CK-MB (CK-2) Troponin T NT-Pro-B Natriuret Pep Total Protein Albumin Triglycerides 173 H HDL Cholesterol Folate Urine WBC (Auto) Urine Creatinine Urine Total Protein Vancomycin Trough 05/18/19 05/18/19 05/18/19 01:50 04:41 05:24 WBC RBC Hgb Hct MCV MCH MCHC RDW Plt Count Lymph % (Auto) Hart % (Auto) Eos % (Auto) Lymph # Hart # Eos # Seg Neutrophils % Seg Neuts % (Manual) Lymphocytes % (Manual) Monocytes % (Manual) Eosinophils % (Manual) Nucleated RBC % Seg Neutrophils # Seg Neutrophils # Man Lymphocytes # (Manual) Monocytes # (Manual) Eosinophils # (Manual) PT INR APTT Fibrinogen POC ABG pH 7.260 L ABG pH POC ABG pCO2 54.9 H POC ABG pO2 ABG pO2 ABG HCO3 ABG O2 Saturation ABG Base Excess ABG Hemoglobin Oxyhemoglobin Sodium Potassium 5.6 H Chloride Carbon Dioxide BUN 104 H Creatinine 6.6 H Glucose 107 H POC Glucose 106 H Uric Acid Calcium Phosphorus Magnesium Iron TIBC AST ALT Total Creatine Kinase CK-MB (CK-2) Troponin T NT-Pro-B Natriuret Pep Total Protein Albumin Triglycerides HDL Cholesterol Folate Urine WBC (Auto) Urine Creatinine Urine Total Protein Vancomycin Trough 05/18/19 05/18/19 05/19/19 11:34 23:26 04:06 WBC RBC 3.22 L Hgb 8.8 L Hct 27.3 L MCV MCH 27 L MCHC RDW 17.5 H Plt Count Lymph % (Auto) Hart % (Auto) Eos % (Auto) Lymph # Hart # Eos # Seg Neutrophils % Seg Neuts % (Manual) 74.0 H Lymphocytes % (Manual) 4.0 L Monocytes % (Manual) 11.0 H Eosinophils % (Manual) 7.0 H Nucleated RBC % 1.0 H Seg Neutrophils # Seg Neutrophils # Man Lymphocytes # (Manual) 0.3 L Monocytes # (Manual) 0.9 H Eosinophils # (Manual) 0.6 H PT INR APTT Fibrinogen POC ABG pH ABG pH POC ABG pCO2 POC ABG pO2 ABG pO2 ABG HCO3 ABG O2 Saturation ABG Base Excess ABG Hemoglobin Oxyhemoglobin Sodium Potassium Chloride Carbon Dioxide BUN Creatinine Glucose POC Glucose 152 H 112 H Uric Acid Calcium Phosphorus Magnesium Iron TIBC AST ALT Total Creatine Kinase CK-MB (CK-2) Troponin T NT-Pro-B Natriuret Pep Total Protein Albumin Triglycerides HDL Cholesterol Folate Urine WBC (Auto) Urine Creatinine Urine Total Protein Vancomycin Trough 05/19/19 05/19/19 05/20/19 04:06 06:00 04:00 WBC RBC 3.40 L Hgb 9.2 L Hct 28.6 L MCV MCH 27 L MCHC RDW 17.6 H Plt Count Lymph % (Auto) Hart % (Auto) Eos % (Auto) Lymph # Hart # Eos # Seg Neutrophils % Seg Neuts % (Manual) Lymphocytes % (Manual) 11.0 L Monocytes % (Manual) Eosinophils % (Manual) 14.0 H Nucleated RBC % Seg Neutrophils # Seg Neutrophils # Man Lymphocytes # (Manual) 1.1 L Monocytes # (Manual) Eosinophils # (Manual) 1.4 H PT INR APTT Fibrinogen POC ABG pH ABG pH 7.315 L POC ABG pCO2 POC ABG pO2 ABG pO2 ABG HCO3 ABG O2 Saturation ABG Base Excess ABG Hemoglobin 6.7 L Oxyhemoglobin 94.1 L Sodium Potassium 5.2 H Chloride Carbon Dioxide 21 L BUN 110 H Creatinine 7.2 H Glucose POC Glucose Uric Acid Calcium 8.3 L Phosphorus Magnesium Iron TIBC AST ALT Total Creatine Kinase CK-MB (CK-2) Troponin T NT-Pro-B Natriuret Pep Total Protein Albumin Triglycerides HDL Cholesterol Folate Urine WBC (Auto) Urine Creatinine Urine Total Protein Vancomycin Trough 05/20/19 05/20/19 05/20/19 04:00 05:48 12:00 WBC RBC Hgb Hct MCV MCH MCHC RDW Plt Count Lymph % (Auto) Hart % (Auto) Eos % (Auto) Lymph # Hart # Eos # Seg Neutrophils % Seg Neuts % (Manual) Lymphocytes % (Manual) Monocytes % (Manual) Eosinophils % (Manual) Nucleated RBC % Seg Neutrophils # Seg Neutrophils # Man Lymphocytes # (Manual) Monocytes # (Manual) Eosinophils # (Manual) PT INR APTT Fibrinogen POC ABG pH ABG pH 7.281 L POC ABG pCO2 POC ABG pO2 ABG pO2 78.7 L ABG HCO3 ABG O2 Saturation 94.5 L ABG Base Excess -3.0 L ABG Hemoglobin 9.9 L Oxyhemoglobin 92.5 L Sodium 136 L Potassium 5.7 H Chloride 96.3 L Carbon Dioxide BUN 125 H Creatinine 8.3 H Glucose 106 H POC Glucose Uric Acid Calcium Phosphorus Magnesium Iron TIBC AST ALT Total Creatine Kinase CK-MB (CK-2) Troponin T NT-Pro-B Natriuret Pep Total Protein Albumin Triglycerides HDL Cholesterol Folate Urine WBC (Auto) 26.0 H Urine Creatinine Urine Total Protein Vancomycin Trough 05/21/19 05/21/19 05/21/19 04:33 05:20 Unknown WBC RBC 3.38 L Hgb 9.1 L Hct 28.5 L MCV MCH 27 L MCHC RDW 17.4 H Plt Count Lymph % (Auto) Hart % (Auto) Eos % (Auto) Lymph # Hart # Eos # Seg Neutrophils % Seg Neuts % (Manual) 71.0 H Lymphocytes % (Manual) 1.0 L Monocytes % (Manual) 11.0 H Eosinophils % (Manual) 6.0 H Nucleated RBC % Seg Neutrophils # Seg Neutrophils # Man Lymphocytes # (Manual) 0.1 L Monocytes # (Manual) 1.0 H Eosinophils # (Manual) 0.6 H PT INR APTT Fibrinogen POC ABG pH 7.315 L ABG pH POC ABG pCO2 57.8 H POC ABG pO2 68 L ABG pO2 ABG HCO3 ABG O2 Saturation ABG Base Excess ABG Hemoglobin Oxyhemoglobin Sodium Potassium Chloride 96.3 L Carbon Dioxide BUN 102 H Creatinine 7.0 H Glucose 103 H POC Glucose Uric Acid Calcium Phosphorus Magnesium Iron TIBC AST ALT Total Creatine Kinase CK-MB (CK-2) Troponin T NT-Pro-B Natriuret Pep Total Protein Albumin Triglycerides HDL Cholesterol Folate Urine WBC (Auto) Urine Creatinine Urine Total Protein Vancomycin Trough 05/22/19 05/22/19 05/22/19 03:54 06:25 06:25 WBC RBC 3.22 L Hgb 8.6 L Hct 27.0 L MCV MCH 27 L MCHC RDW 17.5 H Plt Count Lymph % (Auto) Hart % (Auto) 16.2 H Eos % (Auto) 10.8 H Lymph # Hart # 1.3 H Eos # 0.9 H Seg Neutrophils % Seg Neuts % (Manual) Lymphocytes % (Manual) 10.0 L Monocytes % (Manual) 13.0 H Eosinophils % (Manual) 8.0 H Nucleated RBC % Seg Neutrophils # Seg Neutrophils # Man Lymphocytes # (Manual) 0.9 L Monocytes # (Manual) 1.1 H Eosinophils # (Manual) 0.7 H PT INR APTT Fibrinogen POC ABG pH 7.313 L ABG pH POC ABG pCO2 55.0 H POC ABG pO2 ABG pO2 ABG HCO3 ABG O2 Saturation ABG Base Excess ABG Hemoglobin Oxyhemoglobin Sodium 135 L Potassium Chloride 94.3 L Carbon Dioxide BUN 117 H Creatinine 7.8 H Glucose POC Glucose Uric Acid Calcium 8.2 L Phosphorus Magnesium Iron TIBC AST ALT Total Creatine Kinase CK-MB (CK-2) Troponin T NT-Pro-B Natriuret Pep Total Protein Albumin Triglycerides HDL Cholesterol Folate Urine WBC (Auto) Urine Creatinine Urine Total Protein Vancomycin Trough 05/23/19 05/24/19 05/24/19 05:21 05:00 05:00 WBC RBC 3.18 L Hgb 8.5 L Hct 26.7 L MCV MCH 27 L MCHC RDW 17.9 H Plt Count Lymph % (Auto) Hart % (Auto) Eos % (Auto) Lymph # Hart # Eos # Seg Neutrophils % Seg Neuts % (Manual) Lymphocytes % (Manual) Monocytes % (Manual) Eosinophils % (Manual) Nucleated RBC % Seg Neutrophils # Seg Neutrophils # Man Lymphocytes # (Manual) Monocytes # (Manual) Eosinophils # (Manual) PT INR APTT Fibrinogen POC ABG pH ABG pH POC ABG pCO2 49.7 H POC ABG pO2 73 L ABG pO2 ABG HCO3 ABG O2 Saturation ABG Base Excess ABG Hemoglobin Oxyhemoglobin Sodium Potassium Chloride 95.7 L Carbon Dioxide BUN 97 H Creatinine 6.5 H Glucose POC Glucose Uric Acid Calcium 8.0 L Phosphorus Magnesium Iron TIBC AST ALT Total Creatine Kinase CK-MB (CK-2) Troponin T NT-Pro-B Natriuret Pep Total Protein Albumin Triglycerides HDL Cholesterol Folate Urine WBC (Auto) Urine Creatinine Urine Total Protein Vancomycin Trough 05/24/19 05/25/19 05/25/19 06:17 04:22 15:45 WBC RBC 2.98 L Hgb 8.1 L Hct 24.9 L MCV MCH 27 L MCHC RDW 17.8 H Plt Count Lymph % (Auto) Hart % (Auto) Eos % (Auto) Lymph # Hart # Eos # Seg Neutrophils % Seg Neuts % (Manual) Lymphocytes % (Manual) Monocytes % (Manual) Eosinophils % (Manual) Nucleated RBC % Seg Neutrophils # Seg Neutrophils # Man Lymphocytes # (Manual) Monocytes # (Manual) Eosinophils # (Manual) PT INR APTT Fibrinogen POC ABG pH 7.330 L 7.313 L ABG pH POC ABG pCO2 52.5 H 51.1 H POC ABG pO2 77 L ABG pO2 ABG HCO3 ABG O2 Saturation ABG Base Excess ABG Hemoglobin Oxyhemoglobin Sodium Potassium Chloride Carbon Dioxide BUN Creatinine Glucose POC Glucose Uric Acid Calcium Phosphorus Magnesium Iron TIBC AST ALT Total Creatine Kinase CK-MB (CK-2) Troponin T NT-Pro-B Natriuret Pep Total Protein Albumin Triglycerides HDL Cholesterol Folate Urine WBC (Auto) Urine Creatinine Urine Total Protein Vancomycin Trough 05/25/19 05/26/19 05/26/19 15:45 04:13 05:00 WBC RBC 3.10 L Hgb 8.4 L Hct 26.0 L MCV MCH 27 L MCHC RDW 17.4 H Plt Count Lymph % (Auto) Hart % (Auto) Eos % (Auto) Lymph # Hart # Eos # Seg Neutrophils % Seg Neuts % (Manual) Lymphocytes % (Manual) Monocytes % (Manual) Eosinophils % (Manual) Nucleated RBC % Seg Neutrophils # Seg Neutrophils # Man Lymphocytes # (Manual) Monocytes # (Manual) Eosinophils # (Manual) PT INR APTT Fibrinogen POC ABG pH 7.295 L ABG pH POC ABG pCO2 56.5 H POC ABG pO2 63 L ABG pO2 ABG HCO3 ABG O2 Saturation ABG Base Excess ABG Hemoglobin Oxyhemoglobin Sodium 136 L Potassium Chloride 96.8 L Carbon Dioxide BUN 83 H Creatinine 5.9 H Glucose POC Glucose Uric Acid Calcium 7.6 L Phosphorus Magnesium Iron TIBC AST ALT Total Creatine Kinase CK-MB (CK-2) Troponin T NT-Pro-B Natriuret Pep Total Protein Albumin Triglycerides HDL Cholesterol Folate Urine WBC (Auto) Urine Creatinine Urine Total Protein Vancomycin Trough 05/26/19 05/27/19 05/28/19 05:00 04:48 04:47 WBC RBC Hgb Hct MCV MCH MCHC RDW Plt Count Lymph % (Auto) Hart % (Auto) Eos % (Auto) Lymph # Hart # Eos # Seg Neutrophils % Seg Neuts % (Manual) Lymphocytes % (Manual) Monocytes % (Manual) Eosinophils % (Manual) Nucleated RBC % Seg Neutrophils # Seg Neutrophils # Man Lymphocytes # (Manual) Monocytes # (Manual) Eosinophils # (Manual) PT INR APTT Fibrinogen POC ABG pH 7.323 L ABG pH 7.284 L POC ABG pCO2 56.2 H POC ABG pO2 ABG pO2 71.6 L ABG HCO3 ABG O2 Saturation 92.0 L ABG Base Excess ABG Hemoglobin 7.7 L Oxyhemoglobin 89.9 L Sodium 136 L Potassium Chloride 95.3 L Carbon Dioxide BUN 96 H Creatinine 6.5 H Glucose 108 H POC Glucose Uric Acid Calcium 7.6 L Phosphorus Magnesium Iron TIBC AST ALT Total Creatine Kinase CK-MB (CK-2) Troponin T NT-Pro-B Natriuret Pep Total Protein Albumin Triglycerides HDL Cholesterol Folate Urine WBC (Auto) Urine Creatinine Urine Total Protein Vancomycin Trough 05/28/19 05/29/19 05/29/19 12:30 12:47 23:44 WBC RBC Hgb Hct MCV MCH MCHC RDW Plt Count Lymph % (Auto) Hart % (Auto) Eos % (Auto) Lymph # Hart # Eos # Seg Neutrophils % Seg Neuts % (Manual) Lymphocytes % (Manual) Monocytes % (Manual) Eosinophils % (Manual) Nucleated RBC % Seg Neutrophils # Seg Neutrophils # Man Lymphocytes # (Manual) Monocytes # (Manual) Eosinophils # (Manual) PT INR APTT Fibrinogen POC ABG pH ABG pH POC ABG pCO2 POC ABG pO2 ABG pO2 ABG HCO3 ABG O2 Saturation ABG Base Excess ABG Hemoglobin Oxyhemoglobin Sodium 135 L Potassium Chloride 95.3 L Carbon Dioxide BUN 82 H Creatinine 6.0 H Glucose POC Glucose 136 H 159 H Uric Acid Calcium 7.5 L Phosphorus Magnesium Iron TIBC AST ALT Total Creatine Kinase CK-MB (CK-2) Troponin T NT-Pro-B Natriuret Pep Total Protein Albumin Triglycerides HDL Cholesterol Folate Urine WBC (Auto) Urine Creatinine Urine Total Protein Vancomycin Trough 05/30/19 05/30/19 05/30/19 04:30 05:38 12:00 WBC RBC 3.01 L Hgb 8.2 L Hct 25.3 L MCV MCH 27 L MCHC RDW 17.5 H Plt Count Lymph % (Auto) Hart % (Auto) Eos % (Auto) Lymph # Hart # Eos # Seg Neutrophils % Seg Neuts % (Manual) 80.0 H Lymphocytes % (Manual) 10.0 L Monocytes % (Manual) Eosinophils % (Manual) Nucleated RBC % Seg Neutrophils # Seg Neutrophils # Man 8.0 H Lymphocytes # (Manual) 1.0 L Monocytes # (Manual) Eosinophils # (Manual) PT INR APTT Fibrinogen POC ABG pH ABG pH POC ABG pCO2 POC ABG pO2 73 L ABG pO2 ABG HCO3 ABG O2 Saturation ABG Base Excess ABG Hemoglobin Oxyhemoglobin Sodium Potassium Chloride Carbon Dioxide BUN Creatinine Glucose POC Glucose 166 H Uric Acid Calcium Phosphorus Magnesium Iron TIBC AST ALT Total Creatine Kinase CK-MB (CK-2) Troponin T NT-Pro-B Natriuret Pep Total Protein Albumin Triglycerides HDL Cholesterol Folate Urine WBC (Auto) Urine Creatinine Urine Total Protein Vancomycin Trough 05/30/19 05/31/19 05/31/19 23:45 04:07 13:04 WBC 14.3 H RBC 2.88 L Hgb 7.7 L Hct 23.9 L MCV 83 L MCH 27 L MCHC RDW 17.8 H Plt Count Lymph % (Auto) Hart % (Auto) Eos % (Auto) Lymph # Hart # Eos # Seg Neutrophils % Seg Neuts % (Manual) 83.0 H Lymphocytes % (Manual) 11.0 L Monocytes % (Manual) Eosinophils % (Manual) Nucleated RBC % Seg Neutrophils # Seg Neutrophils # Man 11.9 H Lymphocytes # (Manual) Monocytes # (Manual) 0.9 H Eosinophils # (Manual) PT INR APTT Fibrinogen POC ABG pH ABG pH POC ABG pCO2 47.4 H POC ABG pO2 ABG pO2 ABG HCO3 ABG O2 Saturation ABG Base Excess ABG Hemoglobin Oxyhemoglobin Sodium Potassium Chloride Carbon Dioxide BUN Creatinine Glucose POC Glucose 209 H Uric Acid Calcium Phosphorus Magnesium Iron TIBC AST ALT Total Creatine Kinase CK-MB (CK-2) Troponin T NT-Pro-B Natriuret Pep Total Protein Albumin Triglycerides HDL Cholesterol Folate Urine WBC (Auto) Urine Creatinine Urine Total Protein Vancomycin Trough 05/31/19 05/31/19 06/01/19 13:04 16:42 00:15 WBC RBC Hgb Hct MCV MCH MCHC RDW Plt Count Lymph % (Auto) Hart % (Auto) Eos % (Auto) Lymph # Hart # Eos # Seg Neutrophils % Seg Neuts % (Manual) Lymphocytes % (Manual) Monocytes % (Manual) Eosinophils % (Manual) Nucleated RBC % Seg Neutrophils # Seg Neutrophils # Man Lymphocytes # (Manual) Monocytes # (Manual) Eosinophils # (Manual) PT INR APTT Fibrinogen POC ABG pH ABG pH POC ABG pCO2 POC ABG pO2 ABG pO2 ABG HCO3 ABG O2 Saturation ABG Base Excess ABG Hemoglobin Oxyhemoglobin Sodium 129 L Potassium Chloride 88.6 L Carbon Dioxide 19 L BUN 117 H Creatinine 6.7 H Glucose 205 H POC Glucose 228 H 223 H Uric Acid Calcium 7.4 L Phosphorus 7.40 H Magnesium Iron TIBC AST 58 H ALT 149 H Total Creatine Kinase CK-MB (CK-2) Troponin T NT-Pro-B Natriuret Pep Total Protein 6.0 L Albumin 2.5 L Triglycerides HDL Cholesterol Folate Urine WBC (Auto) Urine Creatinine Urine Total Protein Vancomycin Trough 06/01/19 06/01/19 06/01/19 04:33 05:27 12:31 WBC RBC Hgb Hct MCV MCH MCHC RDW Plt Count Lymph % (Auto) Hart % (Auto) Eos % (Auto) Lymph # Hart # Eos # Seg Neutrophils % Seg Neuts % (Manual) Lymphocytes % (Manual) Monocytes % (Manual) Eosinophils % (Manual) Nucleated RBC % Seg Neutrophils # Seg Neutrophils # Man Lymphocytes # (Manual) Monocytes # (Manual) Eosinophils # (Manual) PT INR APTT Fibrinogen POC ABG pH ABG pH POC ABG pCO2 POC ABG pO2 ABG pO2 56.9 L ABG HCO3 ABG O2 Saturation 85.9 L ABG Base Excess ABG Hemoglobin 8.1 L Oxyhemoglobin 83.6 L Sodium Potassium Chloride Carbon Dioxide BUN Creatinine Glucose POC Glucose 183 H 217 H Uric Acid Calcium Phosphorus Magnesium Iron TIBC AST ALT Total Creatine Kinase CK-MB (CK-2) Troponin T NT-Pro-B Natriuret Pep Total Protein Albumin Triglycerides HDL Cholesterol Folate Urine WBC (Auto) Urine Creatinine Urine Total Protein Vancomycin Trough 06/01/19 06/02/19 06/02/19 18:20 00:00 05:33 WBC RBC Hgb Hct MCV MCH MCHC RDW Plt Count Lymph % (Auto) Hart % (Auto) Eos % (Auto) Lymph # Hart # Eos # Seg Neutrophils % Seg Neuts % (Manual) Lymphocytes % (Manual) Monocytes % (Manual) Eosinophils % (Manual) Nucleated RBC % Seg Neutrophils # Seg Neutrophils # Man Lymphocytes # (Manual) Monocytes # (Manual) Eosinophils # (Manual) PT INR APTT Fibrinogen POC ABG pH ABG pH POC ABG pCO2 POC ABG pO2 ABG pO2 ABG HCO3 ABG O2 Saturation ABG Base Excess ABG Hemoglobin Oxyhemoglobin Sodium Potassium Chloride Carbon Dioxide BUN Creatinine Glucose POC Glucose 265 H 279 H 259 H Uric Acid Calcium Phosphorus Magnesium Iron TIBC AST ALT Total Creatine Kinase CK-MB (CK-2) Troponin T NT-Pro-B Natriuret Pep Total Protein Albumin Triglycerides HDL Cholesterol Folate Urine WBC (Auto) Urine Creatinine Urine Total Protein Vancomycin Trough 06/02/19 06/02/19 06/02/19 11:06 11:06 11:42 WBC 13.1 H RBC 2.92 L Hgb 7.9 L Hct 24.4 L MCV MCH 27 L MCHC RDW 17.4 H Plt Count Lymph % (Auto) Hart % (Auto) Eos % (Auto) Lymph # Hart # Eos # Seg Neutrophils % Seg Neuts % (Manual) 78.0 H Lymphocytes % (Manual) 12.0 L Monocytes % (Manual) 10.0 H Eosinophils % (Manual) Nucleated RBC % Seg Neutrophils # Seg Neutrophils # Man 10.2 H Lymphocytes # (Manual) Monocytes # (Manual) 1.3 H Eosinophils # (Manual) PT INR APTT Fibrinogen POC ABG pH ABG pH POC ABG pCO2 POC ABG pO2 ABG pO2 ABG HCO3 ABG O2 Saturation ABG Base Excess ABG Hemoglobin Oxyhemoglobin Sodium 135 L Potassium Chloride 94.7 L Carbon Dioxide 21 L BUN 107 H Creatinine 4.5 H Glucose 286 H POC Glucose 263 H Uric Acid Calcium 7.9 L Phosphorus 6.30 H Magnesium Iron TIBC AST ALT 104 H Total Creatine Kinase CK-MB (CK-2) Troponin T NT-Pro-B Natriuret Pep Total Protein 6.0 L Albumin 2.7 L Triglycerides HDL Cholesterol Folate Urine WBC (Auto) Urine Creatinine Urine Total Protein Vancomycin Trough 06/02/19 06/02/19 06/03/19 18:17 23:55 05:30 WBC RBC Hgb Hct MCV MCH MCHC RDW Plt Count Lymph % (Auto) Hart % (Auto) Eos % (Auto) Lymph # Hart # Eos # Seg Neutrophils % Seg Neuts % (Manual) Lymphocytes % (Manual) Monocytes % (Manual) Eosinophils % (Manual) Nucleated RBC % Seg Neutrophils # Seg Neutrophils # Man Lymphocytes # (Manual) Monocytes # (Manual) Eosinophils # (Manual) PT INR APTT Fibrinogen POC ABG pH ABG pH POC ABG pCO2 POC ABG pO2 ABG pO2 ABG HCO3 ABG O2 Saturation ABG Base Excess ABG Hemoglobin Oxyhemoglobin Sodium Potassium Chloride 95.1 L Carbon Dioxide 21 L BUN 119 H Creatinine 4.1 H Glucose 330 H POC Glucose 276 H 244 H Uric Acid Calcium 8.1 L Phosphorus Magnesium Iron TIBC AST ALT 98 H Total Creatine Kinase CK-MB (CK-2) Troponin T NT-Pro-B Natriuret Pep Total Protein 5.8 L Albumin 2.8 L Triglycerides HDL Cholesterol Folate Urine WBC (Auto) Urine Creatinine Urine Total Protein Vancomycin Trough 06/03/19 06/03/19 06/03/19 05:30 06:04 09:42 WBC 12.8 H RBC 3.01 L Hgb 8.2 L Hct 25.4 L MCV MCH 27 L MCHC RDW 17.5 H Plt Count Lymph % (Auto) Hart % (Auto) Eos % (Auto) Lymph # Hart # Eos # Seg Neutrophils % Seg Neuts % (Manual) 78.0 H Lymphocytes % (Manual) 10.0 L Monocytes % (Manual) 12.0 H Eosinophils % (Manual) Nucleated RBC % Seg Neutrophils # Seg Neutrophils # Man 10.0 H Lymphocytes # (Manual) Monocytes # (Manual) 1.5 H Eosinophils # (Manual) PT INR APTT Fibrinogen POC ABG pH ABG pH POC ABG pCO2 POC ABG pO2 ABG pO2 ABG HCO3 ABG O2 Saturation ABG Base Excess ABG Hemoglobin Oxyhemoglobin Sodium Potassium Chloride Carbon Dioxide BUN 106 H Creatinine Glucose POC Glucose 254 H Uric Acid Calcium Phosphorus Magnesium Iron TIBC AST ALT Total Creatine Kinase CK-MB (CK-2) Troponin T NT-Pro-B Natriuret Pep Total Protein Albumin Triglycerides HDL Cholesterol Folate Urine WBC (Auto) Urine Creatinine Urine Total Protein Vancomycin Trough 06/03/19 06/03/19 06/03/19 12:52 17:25 23:37 WBC RBC Hgb Hct MCV MCH MCHC RDW Plt Count Lymph % (Auto) Hart % (Auto) Eos % (Auto) Lymph # Hart # Eos # Seg Neutrophils % Seg Neuts % (Manual) Lymphocytes % (Manual) Monocytes % (Manual) Eosinophils % (Manual) Nucleated RBC % Seg Neutrophils # Seg Neutrophils # Man Lymphocytes # (Manual) Monocytes # (Manual) Eosinophils # (Manual) PT INR APTT Fibrinogen POC ABG pH ABG pH POC ABG pCO2 POC ABG pO2 ABG pO2 ABG HCO3 ABG O2 Saturation ABG Base Excess ABG Hemoglobin Oxyhemoglobin Sodium Potassium Chloride Carbon Dioxide BUN Creatinine Glucose POC Glucose 274 H 285 H 310 H Uric Acid Calcium Phosphorus Magnesium Iron TIBC AST ALT Total Creatine Kinase CK-MB (CK-2) Troponin T NT-Pro-B Natriuret Pep Total Protein Albumin Triglycerides HDL Cholesterol Folate Urine WBC (Auto) Urine Creatinine Urine Total Protein Vancomycin Trough 06/04/19 06/04/19 06/04/19 04:57 05:03 11:50 WBC RBC Hgb Hct MCV MCH MCHC RDW Plt Count Lymph % (Auto) Hart % (Auto) Eos % (Auto) Lymph # Hart # Eos # Seg Neutrophils % Seg Neuts % (Manual) Lymphocytes % (Manual) Monocytes % (Manual) Eosinophils % (Manual) Nucleated RBC % Seg Neutrophils # Seg Neutrophils # Man Lymphocytes # (Manual) Monocytes # (Manual) Eosinophils # (Manual) PT INR APTT Fibrinogen POC ABG pH 7.488 H ABG pH POC ABG pCO2 POC ABG pO2 ABG pO2 ABG HCO3 ABG O2 Saturation ABG Base Excess ABG Hemoglobin Oxyhemoglobin Sodium Potassium Chloride Carbon Dioxide BUN Creatinine Glucose POC Glucose 275 H 279 H Uric Acid Calcium Phosphorus Magnesium Iron TIBC AST ALT Total Creatine Kinase CK-MB (CK-2) Troponin T NT-Pro-B Natriuret Pep Total Protein Albumin Triglycerides HDL Cholesterol Folate Urine WBC (Auto) Urine Creatinine Urine Total Protein Vancomycin Trough 06/04/19 06/04/19 06/04/19 18:32 22:03 23:55 WBC RBC Hgb Hct MCV MCH MCHC RDW Plt Count Lymph % (Auto) Hart % (Auto) Eos % (Auto) Lymph # Hart # Eos # Seg Neutrophils % Seg Neuts % (Manual) Lymphocytes % (Manual) Monocytes % (Manual) Eosinophils % (Manual) Nucleated RBC % Seg Neutrophils # Seg Neutrophils # Man Lymphocytes # (Manual) Monocytes # (Manual) Eosinophils # (Manual) PT INR APTT Fibrinogen POC ABG pH ABG pH POC ABG pCO2 POC ABG pO2 ABG pO2 ABG HCO3 ABG O2 Saturation ABG Base Excess ABG Hemoglobin Oxyhemoglobin Sodium Potassium Chloride Carbon Dioxide BUN Creatinine Glucose POC Glucose 267 H 307 H 292 H Uric Acid Calcium Phosphorus Magnesium Iron TIBC AST ALT Total Creatine Kinase CK-MB (CK-2) Troponin T NT-Pro-B Natriuret Pep Total Protein Albumin Triglycerides HDL Cholesterol Folate Urine WBC (Auto) Urine Creatinine Urine Total Protein Vancomycin Trough 06/05/19 06/05/19 06/05/19 03:52 06:41 12:29 WBC RBC Hgb Hct MCV MCH MCHC RDW Plt Count Lymph % (Auto) Hart % (Auto) Eos % (Auto) Lymph # Hart # Eos # Seg Neutrophils % Seg Neuts % (Manual) Lymphocytes % (Manual) Monocytes % (Manual) Eosinophils % (Manual) Nucleated RBC % Seg Neutrophils # Seg Neutrophils # Man Lymphocytes # (Manual) Monocytes # (Manual) Eosinophils # (Manual) PT INR APTT Fibrinogen POC ABG pH 7.462 H ABG pH POC ABG pCO2 POC ABG pO2 ABG pO2 ABG HCO3 ABG O2 Saturation ABG Base Excess ABG Hemoglobin Oxyhemoglobin Sodium Potassium Chloride Carbon Dioxide BUN Creatinine Glucose POC Glucose 369 H 265 H Uric Acid Calcium Phosphorus Magnesium Iron TIBC AST ALT Total Creatine Kinase CK-MB (CK-2) Troponin T NT-Pro-B Natriuret Pep Total Protein Albumin Triglycerides HDL Cholesterol Folate Urine WBC (Auto) Urine Creatinine Urine Total Protein Vancomycin Trough 06/05/19 06/05/19 06/05/19 18:20 21:42 23:21 WBC RBC Hgb Hct MCV MCH MCHC RDW Plt Count Lymph % (Auto) Hart % (Auto) Eos % (Auto) Lymph # Hart # Eos # Seg Neutrophils % Seg Neuts % (Manual) Lymphocytes % (Manual) Monocytes % (Manual) Eosinophils % (Manual) Nucleated RBC % Seg Neutrophils # Seg Neutrophils # Man Lymphocytes # (Manual) Monocytes # (Manual) Eosinophils # (Manual) PT INR APTT Fibrinogen POC ABG pH ABG pH POC ABG pCO2 POC ABG pO2 ABG pO2 ABG HCO3 ABG O2 Saturation ABG Base Excess ABG Hemoglobin Oxyhemoglobin Sodium Potassium Chloride Carbon Dioxide BUN Creatinine Glucose POC Glucose 249 H 246 H 274 H Uric Acid Calcium Phosphorus Magnesium Iron TIBC AST ALT Total Creatine Kinase CK-MB (CK-2) Troponin T NT-Pro-B Natriuret Pep Total Protein Albumin Triglycerides HDL Cholesterol Folate Urine WBC (Auto) Urine Creatinine Urine Total Protein Vancomycin Trough 06/06/19 06/06/19 06/06/19 04:00 05:49 11:34 WBC 18.1 H RBC 3.53 L Hgb 9.5 L Hct 30.3 L MCV MCH 27 L MCHC 31 L RDW 19.5 H Plt Count Lymph % (Auto) Hart % (Auto) Eos % (Auto) Lymph # Hart # Eos # Seg Neutrophils % Seg Neuts % (Manual) 87.0 H Lymphocytes % (Manual) 3.0 L Monocytes % (Manual) 8.0 H Eosinophils % (Manual) Nucleated RBC % Seg Neutrophils # Seg Neutrophils # Man 15.7 H Lymphocytes # (Manual) 0.5 L Monocytes # (Manual) 1.4 H Eosinophils # (Manual) PT INR APTT Fibrinogen POC ABG pH ABG pH 7.472 H POC ABG pCO2 POC ABG pO2 ABG pO2 76.4 L ABG HCO3 28.1 H ABG O2 Saturation ABG Base Excess 4.3 H ABG Hemoglobin 12.5 L Oxyhemoglobin 93.8 L Sodium Potassium Chloride Carbon Dioxide BUN Creatinine Glucose POC Glucose 340 H Uric Acid Calcium Phosphorus Magnesium Iron TIBC AST ALT Total Creatine Kinase CK-MB (CK-2) Troponin T NT-Pro-B Natriuret Pep Total Protein Albumin Triglycerides HDL Cholesterol Folate Urine WBC (Auto) Urine Creatinine Urine Total Protein Vancomycin Trough 06/06/19 06/06/19 06/06/19 11:34 12:11 18:10 WBC RBC Hgb Hct MCV MCH MCHC RDW Plt Count Lymph % (Auto) Hart % (Auto) Eos % (Auto) Lymph # Hart # Eos # Seg Neutrophils % Seg Neuts % (Manual) Lymphocytes % (Manual) Monocytes % (Manual) Eosinophils % (Manual) Nucleated RBC % Seg Neutrophils # Seg Neutrophils # Man Lymphocytes # (Manual) Monocytes # (Manual) Eosinophils # (Manual) PT INR APTT Fibrinogen POC ABG pH ABG pH POC ABG pCO2 POC ABG pO2 ABG pO2 ABG HCO3 ABG O2 Saturation ABG Base Excess ABG Hemoglobin Oxyhemoglobin Sodium Potassium Chloride Carbon Dioxide BUN 70 H Creatinine Glucose 310 H POC Glucose 283 H 301 H Uric Acid Calcium 8.3 L Phosphorus 4.60 H Magnesium Iron TIBC AST ALT 75 H Total Creatine Kinase CK-MB (CK-2) Troponin T NT-Pro-B Natriuret Pep Total Protein 5.6 L Albumin 2.9 L Triglycerides HDL Cholesterol Folate Urine WBC (Auto) Urine Creatinine Urine Total Protein Vancomycin Trough 06/06/19 06/06/19 06/07/19 22:21 23:16 04:30 WBC RBC Hgb Hct MCV MCH MCHC RDW Plt Count Lymph % (Auto) Hart % (Auto) Eos % (Auto) Lymph # Hart # Eos # Seg Neutrophils % Seg Neuts % (Manual) Lymphocytes % (Manual) Monocytes % (Manual) Eosinophils % (Manual) Nucleated RBC % Seg Neutrophils # Seg Neutrophils # Man Lymphocytes # (Manual) Monocytes # (Manual) Eosinophils # (Manual) PT INR APTT Fibrinogen POC ABG pH ABG pH 7.480 H POC ABG pCO2 POC ABG pO2 ABG pO2 77.0 L ABG HCO3 27.2 H ABG O2 Saturation ABG Base Excess 3.5 H ABG Hemoglobin 7.1 L Oxyhemoglobin 94.2 L Sodium Potassium Chloride Carbon Dioxide BUN Creatinine Glucose POC Glucose 289 H 343 H Uric Acid Calcium Phosphorus Magnesium Iron TIBC AST ALT Total Creatine Kinase CK-MB (CK-2) Troponin T NT-Pro-B Natriuret Pep Total Protein Albumin Triglycerides HDL Cholesterol Folate Urine WBC (Auto) Urine Creatinine Urine Total Protein Vancomycin Trough 06/07/19 06/07/19 06/07/19 05:15 12:52 18:41 WBC RBC Hgb Hct MCV MCH MCHC RDW Plt Count Lymph % (Auto) Hart % (Auto) Eos % (Auto) Lymph # Hart # Eos # Seg Neutrophils % Seg Neuts % (Manual) Lymphocytes % (Manual) Monocytes % (Manual) Eosinophils % (Manual) Nucleated RBC % Seg Neutrophils # Seg Neutrophils # Man Lymphocytes # (Manual) Monocytes # (Manual) Eosinophils # (Manual) PT INR APTT Fibrinogen POC ABG pH ABG pH POC ABG pCO2 POC ABG pO2 ABG pO2 ABG HCO3 ABG O2 Saturation ABG Base Excess ABG Hemoglobin Oxyhemoglobin Sodium Potassium Chloride Carbon Dioxide BUN Creatinine Glucose POC Glucose 307 H 226 H 187 H Uric Acid Calcium Phosphorus Magnesium Iron TIBC AST ALT Total Creatine Kinase CK-MB (CK-2) Troponin T NT-Pro-B Natriuret Pep Total Protein Albumin Triglycerides HDL Cholesterol Folate Urine WBC (Auto) Urine Creatinine Urine Total Protein Vancomycin Trough 06/07/19 06/07/19 06/08/19 22:54 23:46 04:20 WBC 16.0 H RBC Hgb 10.0 L Hct 32.1 L MCV MCH 27 L MCHC 31 L RDW 19.4 H Plt Count Lymph % (Auto) Hart % (Auto) Eos % (Auto) Lymph # Hart # Eos # Seg Neutrophils % Seg Neuts % (Manual) 87.0 H Lymphocytes % (Manual) 7.0 L Monocytes % (Manual) Eosinophils % (Manual) Nucleated RBC % Seg Neutrophils # Seg Neutrophils # Man 13.9 H Lymphocytes # (Manual) 1.1 L Monocytes # (Manual) 1.0 H Eosinophils # (Manual) PT INR APTT Fibrinogen POC ABG pH ABG pH POC ABG pCO2 POC ABG pO2 ABG pO2 ABG HCO3 ABG O2 Saturation ABG Base Excess ABG Hemoglobin Oxyhemoglobin Sodium Potassium Chloride Carbon Dioxide BUN Creatinine Glucose POC Glucose 199 H 172 H Uric Acid Calcium Phosphorus Magnesium Iron TIBC AST ALT Total Creatine Kinase CK-MB (CK-2) Troponin T NT-Pro-B Natriuret Pep Total Protein Albumin Triglycerides HDL Cholesterol Folate Urine WBC (Auto) Urine Creatinine Urine Total Protein Vancomycin Trough 06/08/19 06/08/19 06/08/19 04:20 05:15 11:31 WBC RBC Hgb Hct MCV MCH MCHC RDW Plt Count Lymph % (Auto) Hart % (Auto) Eos % (Auto) Lymph # Hart # Eos # Seg Neutrophils % Seg Neuts % (Manual) Lymphocytes % (Manual) Monocytes % (Manual) Eosinophils % (Manual) Nucleated RBC % Seg Neutrophils # Seg Neutrophils # Man Lymphocytes # (Manual) Monocytes # (Manual) Eosinophils # (Manual) PT INR APTT Fibrinogen POC ABG pH ABG pH POC ABG pCO2 POC ABG pO2 ABG pO2 ABG HCO3 ABG O2 Saturation ABG Base Excess ABG Hemoglobin Oxyhemoglobin Sodium 146 H D Potassium Chloride Carbon Dioxide BUN 77 H Creatinine Glucose 205 H POC Glucose 209 H 181 H Uric Acid Calcium Phosphorus Magnesium Iron TIBC AST ALT 66 H Total Creatine Kinase CK-MB (CK-2) Troponin T NT-Pro-B Natriuret Pep Total Protein 5.5 L Albumin 2.9 L Triglycerides HDL Cholesterol Folate Urine WBC (Auto) Urine Creatinine Urine Total Protein Vancomycin Trough 06/08/19 06/08/19 06/09/19 17:28 23:24 05:20 WBC RBC Hgb Hct MCV MCH MCHC RDW Plt Count Lymph % (Auto) Hart % (Auto) Eos % (Auto) Lymph # Hart # Eos # Seg Neutrophils % Seg Neuts % (Manual) Lymphocytes % (Manual) Monocytes % (Manual) Eosinophils % (Manual) Nucleated RBC % Seg Neutrophils # Seg Neutrophils # Man Lymphocytes # (Manual) Monocytes # (Manual) Eosinophils # (Manual) PT INR APTT Fibrinogen POC ABG pH ABG pH POC ABG pCO2 POC ABG pO2 ABG pO2 ABG HCO3 ABG O2 Saturation ABG Base Excess ABG Hemoglobin Oxyhemoglobin Sodium Potassium Chloride Carbon Dioxide BUN Creatinine Glucose POC Glucose 215 H 200 H 173 H Uric Acid Calcium Phosphorus Magnesium Iron TIBC AST ALT Total Creatine Kinase CK-MB (CK-2) Troponin T NT-Pro-B Natriuret Pep Total Protein Albumin Triglycerides HDL Cholesterol Folate Urine WBC (Auto) Urine Creatinine Urine Total Protein Vancomycin Trough 06/09/19 06/09/19 06/09/19 12:07 18:32 23:51 WBC RBC Hgb Hct MCV MCH MCHC RDW Plt Count Lymph % (Auto) Hart % (Auto) Eos % (Auto) Lymph # Hart # Eos # Seg Neutrophils % Seg Neuts % (Manual) Lymphocytes % (Manual) Monocytes % (Manual) Eosinophils % (Manual) Nucleated RBC % Seg Neutrophils # Seg Neutrophils # Man Lymphocytes # (Manual) Monocytes # (Manual) Eosinophils # (Manual) PT INR APTT Fibrinogen POC ABG pH ABG pH POC ABG pCO2 POC ABG pO2 ABG pO2 ABG HCO3 ABG O2 Saturation ABG Base Excess ABG Hemoglobin Oxyhemoglobin Sodium Potassium Chloride Carbon Dioxide BUN Creatinine Glucose POC Glucose 117 H 169 H 147 H Uric Acid Calcium Phosphorus Magnesium Iron TIBC AST ALT Total Creatine Kinase CK-MB (CK-2) Troponin T NT-Pro-B Natriuret Pep Total Protein Albumin Triglycerides HDL Cholesterol Folate Urine WBC (Auto) Urine Creatinine Urine Total Protein Vancomycin Trough 06/10/19 06/10/19 06/10/19 05:45 05:45 06:01 WBC 14.6 H RBC Hgb 9.9 L Hct 32.2 L MCV MCH 27 L MCHC 31 L RDW 19.6 H Plt Count Lymph % (Auto) 10.5 L Hart % (Auto) 9.4 H Eos % (Auto) Lymph # Hart # 1.4 H Eos # Seg Neutrophils % 79.9 H Seg Neuts % (Manual) Lymphocytes % (Manual) Monocytes % (Manual) Eosinophils % (Manual) Nucleated RBC % Seg Neutrophils # 11.7 H Seg Neutrophils # Man Lymphocytes # (Manual) Monocytes # (Manual) Eosinophils # (Manual) PT INR APTT Fibrinogen POC ABG pH ABG pH POC ABG pCO2 POC ABG pO2 ABG pO2 ABG HCO3 ABG O2 Saturation ABG Base Excess ABG Hemoglobin Oxyhemoglobin Sodium 150 H Potassium Chloride 108.3 H Carbon Dioxide BUN 49 H Creatinine Glucose 172 H POC Glucose 165 H Uric Acid Calcium Phosphorus Magnesium 1.40 L Iron TIBC AST ALT Total Creatine Kinase CK-MB (CK-2) Troponin T NT-Pro-B Natriuret Pep Total Protein Albumin Triglycerides HDL Cholesterol Folate Urine WBC (Auto) Urine Creatinine Urine Total Protein Vancomycin Trough 06/10/19 06/10/19 06/11/19 12:11 18:30 00:02 WBC RBC Hgb Hct MCV MCH MCHC RDW Plt Count Lymph % (Auto) Hart % (Auto) Eos % (Auto) Lymph # Hart # Eos # Seg Neutrophils % Seg Neuts % (Manual) Lymphocytes % (Manual) Monocytes % (Manual) Eosinophils % (Manual) Nucleated RBC % Seg Neutrophils # Seg Neutrophils # Man Lymphocytes # (Manual) Monocytes # (Manual) Eosinophils # (Manual) PT INR APTT Fibrinogen POC ABG pH ABG pH POC ABG pCO2 POC ABG pO2 ABG pO2 ABG HCO3 ABG O2 Saturation ABG Base Excess ABG Hemoglobin Oxyhemoglobin Sodium Potassium Chloride Carbon Dioxide BUN Creatinine Glucose POC Glucose 150 H 154 H 130 H Uric Acid Calcium Phosphorus Magnesium Iron TIBC AST ALT Total Creatine Kinase CK-MB (CK-2) Troponin T NT-Pro-B Natriuret Pep Total Protein Albumin Triglycerides HDL Cholesterol Folate Urine WBC (Auto) Urine Creatinine Urine Total Protein Vancomycin Trough 06/11/19 06/11/19 06/11/19 05:33 08:34 12:33 WBC RBC Hgb Hct MCV MCH MCHC RDW Plt Count Lymph % (Auto) Hart % (Auto) Eos % (Auto) Lymph # Hart # Eos # Seg Neutrophils % Seg Neuts % (Manual) Lymphocytes % (Manual) Monocytes % (Manual) Eosinophils % (Manual) Nucleated RBC % Seg Neutrophils # Seg Neutrophils # Man Lymphocytes # (Manual) Monocytes # (Manual) Eosinophils # (Manual) PT INR APTT Fibrinogen POC ABG pH ABG pH POC ABG pCO2 POC ABG pO2 ABG pO2 ABG HCO3 ABG O2 Saturation ABG Base Excess ABG Hemoglobin Oxyhemoglobin Sodium 154 H Potassium Chloride 111.6 H Carbon Dioxide BUN 41 H Creatinine Glucose 147 H POC Glucose 183 H 185 H Uric Acid Calcium Phosphorus Magnesium Iron TIBC AST ALT Total Creatine Kinase CK-MB (CK-2) Troponin T NT-Pro-B Natriuret Pep Total Protein Albumin Triglycerides HDL Cholesterol Folate Urine WBC (Auto) Urine Creatinine Urine Total Protein Vancomycin Trough 06/11/19 06/11/19 06/12/19 18:22 23:46 03:21 WBC 11.9 H RBC 3.61 L Hgb 9.9 L Hct 31.7 L MCV MCH 27 L MCHC 31 L RDW 19.3 H Plt Count Lymph % (Auto) 10.6 L Hart % (Auto) 8.6 H Eos % (Auto) Lymph # Hart # 1.0 H Eos # Seg Neutrophils % 80.6 H Seg Neuts % (Manual) Lymphocytes % (Manual) Monocytes % (Manual) Eosinophils % (Manual) Nucleated RBC % Seg Neutrophils # 9.6 H Seg Neutrophils # Man Lymphocytes # (Manual) Monocytes # (Manual) Eosinophils # (Manual) PT INR APTT Fibrinogen POC ABG pH ABG pH POC ABG pCO2 POC ABG pO2 ABG pO2 ABG HCO3 ABG O2 Saturation ABG Base Excess ABG Hemoglobin Oxyhemoglobin Sodium Potassium Chloride Carbon Dioxide BUN Creatinine Glucose POC Glucose 158 H 182 H Uric Acid Calcium Phosphorus Magnesium Iron TIBC AST ALT Total Creatine Kinase CK-MB (CK-2) Troponin T NT-Pro-B Natriuret Pep Total Protein Albumin Triglycerides HDL Cholesterol Folate Urine WBC (Auto) Urine Creatinine Urine Total Protein Vancomycin Trough 06/12/19 06/12/19 06/12/19 03:21 06:04 11:28 WBC RBC Hgb Hct MCV MCH MCHC RDW Plt Count Lymph % (Auto) Hart % (Auto) Eos % (Auto) Lymph # Hart # Eos # Seg Neutrophils % Seg Neuts % (Manual) Lymphocytes % (Manual) Monocytes % (Manual) Eosinophils % (Manual) Nucleated RBC % Seg Neutrophils # Seg Neutrophils # Man Lymphocytes # (Manual) Monocytes # (Manual) Eosinophils # (Manual) PT INR APTT Fibrinogen POC ABG pH ABG pH POC ABG pCO2 POC ABG pO2 ABG pO2 ABG HCO3 ABG O2 Saturation ABG Base Excess ABG Hemoglobin Oxyhemoglobin Sodium 148 H Potassium Chloride 107.3 H Carbon Dioxide BUN 34 H Creatinine 0.7 L Glucose 194 H POC Glucose 133 H 167 H Uric Acid Calcium Phosphorus Magnesium 1.40 L Iron TIBC AST ALT Total Creatine Kinase CK-MB (CK-2) Troponin T NT-Pro-B Natriuret Pep Total Protein Albumin Triglycerides HDL Cholesterol Folate Urine WBC (Auto) Urine Creatinine Urine Total Protein Vancomycin Trough 06/12/19 06/12/19 06/13/19 18:47 21:27 00:04 WBC RBC Hgb Hct MCV MCH MCHC RDW Plt Count Lymph % (Auto) Hart % (Auto) Eos % (Auto) Lymph # Hart # Eos # Seg Neutrophils % Seg Neuts % (Manual) Lymphocytes % (Manual) Monocytes % (Manual) Eosinophils % (Manual) Nucleated RBC % Seg Neutrophils # Seg Neutrophils # Man Lymphocytes # (Manual) Monocytes # (Manual) Eosinophils # (Manual) PT INR APTT Fibrinogen POC ABG pH ABG pH POC ABG pCO2 POC ABG pO2 ABG pO2 ABG HCO3 ABG O2 Saturation ABG Base Excess ABG Hemoglobin Oxyhemoglobin Sodium Potassium Chloride Carbon Dioxide BUN Creatinine Glucose POC Glucose 210 H 263 H 248 H Uric Acid Calcium Phosphorus Magnesium Iron TIBC AST ALT Total Creatine Kinase CK-MB (CK-2) Troponin T NT-Pro-B Natriuret Pep Total Protein Albumin Triglycerides HDL Cholesterol Folate Urine WBC (Auto) Urine Creatinine Urine Total Protein Vancomycin Trough 06/13/19 06/13/19 06/13/19 04:32 05:46 13:30 WBC RBC Hgb Hct MCV MCH MCHC RDW Plt Count Lymph % (Auto) Hart % (Auto) Eos % (Auto) Lymph # Hart # Eos # Seg Neutrophils % Seg Neuts % (Manual) Lymphocytes % (Manual) Monocytes % (Manual) Eosinophils % (Manual) Nucleated RBC % Seg Neutrophils # Seg Neutrophils # Man Lymphocytes # (Manual) Monocytes # (Manual) Eosinophils # (Manual) PT INR APTT Fibrinogen POC ABG pH ABG pH POC ABG pCO2 POC ABG pO2 ABG pO2 ABG HCO3 ABG O2 Saturation ABG Base Excess ABG Hemoglobin Oxyhemoglobin Sodium Potassium Chloride Carbon Dioxide BUN 27 H Creatinine 0.7 L Glucose 253 H POC Glucose 201 H 241 H Uric Acid Calcium Phosphorus Magnesium Iron TIBC AST ALT Total Creatine Kinase CK-MB (CK-2) Troponin T NT-Pro-B Natriuret Pep Total Protein Albumin Triglycerides HDL Cholesterol Folate Urine WBC (Auto) Urine Creatinine Urine Total Protein Vancomycin Trough 06/13/19 06/13/19 06/14/19 17:33 23:49 04:50 WBC RBC Hgb Hct MCV MCH MCHC RDW Plt Count Lymph % (Auto) Hart % (Auto) Eos % (Auto) Lymph # Hart # Eos # Seg Neutrophils % Seg Neuts % (Manual) Lymphocytes % (Manual) Monocytes % (Manual) Eosinophils % (Manual) Nucleated RBC % Seg Neutrophils # Seg Neutrophils # Man Lymphocytes # (Manual) Monocytes # (Manual) Eosinophils # (Manual) PT INR APTT Fibrinogen POC ABG pH ABG pH POC ABG pCO2 POC ABG pO2 ABG pO2 ABG HCO3 ABG O2 Saturation ABG Base Excess ABG Hemoglobin Oxyhemoglobin Sodium Potassium Chloride Carbon Dioxide BUN 37 H Creatinine Glucose 256 H POC Glucose 264 H 236 H Uric Acid Calcium Phosphorus Magnesium Iron TIBC AST ALT Total Creatine Kinase CK-MB (CK-2) Troponin T NT-Pro-B Natriuret Pep Total Protein Albumin Triglycerides HDL Cholesterol Folate Urine WBC (Auto) Urine Creatinine Urine Total Protein Vancomycin Trough 06/14/19 06/14/19 06/14/19 05:26 12:31 18:32 WBC RBC Hgb Hct MCV MCH MCHC RDW Plt Count Lymph % (Auto) Hart % (Auto) Eos % (Auto) Lymph # Hart # Eos # Seg Neutrophils % Seg Neuts % (Manual) Lymphocytes % (Manual) Monocytes % (Manual) Eosinophils % (Manual) Nucleated RBC % Seg Neutrophils # Seg Neutrophils # Man Lymphocytes # (Manual) Monocytes # (Manual) Eosinophils # (Manual) PT INR APTT Fibrinogen POC ABG pH ABG pH POC ABG pCO2 POC ABG pO2 ABG pO2 ABG HCO3 ABG O2 Saturation ABG Base Excess ABG Hemoglobin Oxyhemoglobin Sodium Potassium Chloride Carbon Dioxide BUN Creatinine Glucose POC Glucose 239 H 116 H 247 H Uric Acid Calcium Phosphorus Magnesium Iron TIBC AST ALT Total Creatine Kinase CK-MB (CK-2) Troponin T NT-Pro-B Natriuret Pep Total Protein Albumin Triglycerides HDL Cholesterol Folate Urine WBC (Auto) Urine Creatinine Urine Total Protein Vancomycin Trough 06/14/19 06/15/19 06/15/19 23:57 04:05 05:55 WBC RBC Hgb Hct MCV MCH MCHC RDW Plt Count Lymph % (Auto) Hart % (Auto) Eos % (Auto) Lymph # Hart # Eos # Seg Neutrophils % Seg Neuts % (Manual) Lymphocytes % (Manual) Monocytes % (Manual) Eosinophils % (Manual) Nucleated RBC % Seg Neutrophils # Seg Neutrophils # Man Lymphocytes # (Manual) Monocytes # (Manual) Eosinophils # (Manual) PT INR APTT Fibrinogen POC ABG pH ABG pH POC ABG pCO2 POC ABG pO2 ABG pO2 ABG HCO3 ABG O2 Saturation ABG Base Excess ABG Hemoglobin Oxyhemoglobin Sodium Potassium Chloride Carbon Dioxide BUN 46 H Creatinine 0.7 L Glucose 265 H POC Glucose 206 H 265 H Uric Acid Calcium Phosphorus Magnesium Iron TIBC AST ALT Total Creatine Kinase CK-MB (CK-2) Troponin T NT-Pro-B Natriuret Pep Total Protein Albumin Triglycerides HDL Cholesterol Folate Urine WBC (Auto) Urine Creatinine Urine Total Protein Vancomycin Trough 06/15/19 06/15/19 06/15/19 12:08 18:45 23:41 WBC RBC Hgb Hct MCV MCH MCHC RDW Plt Count Lymph % (Auto) Hart % (Auto) Eos % (Auto) Lymph # Hart # Eos # Seg Neutrophils % Seg Neuts % (Manual) Lymphocytes % (Manual) Monocytes % (Manual) Eosinophils % (Manual) Nucleated RBC % Seg Neutrophils # Seg Neutrophils # Man Lymphocytes # (Manual) Monocytes # (Manual) Eosinophils # (Manual) PT INR APTT Fibrinogen POC ABG pH ABG pH POC ABG pCO2 POC ABG pO2 ABG pO2 ABG HCO3 ABG O2 Saturation ABG Base Excess ABG Hemoglobin Oxyhemoglobin Sodium Potassium Chloride Carbon Dioxide BUN Creatinine Glucose POC Glucose 224 H 177 H 193 H Uric Acid Calcium Phosphorus Magnesium Iron TIBC AST ALT Total Creatine Kinase CK-MB (CK-2) Troponin T NT-Pro-B Natriuret Pep Total Protein Albumin Triglycerides HDL Cholesterol Folate Urine WBC (Auto) Urine Creatinine Urine Total Protein Vancomycin Trough 06/16/19 06/16/19 06/16/19 05:00 05:00 05:40 WBC 11.9 H RBC 3.24 L Hgb 9.0 L Hct 29.0 L MCV MCH MCHC 31 L RDW 18.6 H Plt Count 111 L Lymph % (Auto) Hart % (Auto) Eos % (Auto) Lymph # Hart # Eos # Seg Neutrophils % Seg Neuts % (Manual) 92.0 H Lymphocytes % (Manual) 2.0 L Monocytes % (Manual) Eosinophils % (Manual) Nucleated RBC % Seg Neutrophils # Seg Neutrophils # Man 10.9 H Lymphocytes # (Manual) 0.2 L Monocytes # (Manual) Eosinophils # (Manual) PT INR APTT Fibrinogen POC ABG pH ABG pH POC ABG pCO2 POC ABG pO2 ABG pO2 ABG HCO3 ABG O2 Saturation ABG Base Excess ABG Hemoglobin Oxyhemoglobin Sodium Potassium Chloride Carbon Dioxide 33 H BUN 49 H Creatinine 0.7 L Glucose 264 H POC Glucose 247 H Uric Acid Calcium Phosphorus Magnesium Iron TIBC AST ALT Total Creatine Kinase CK-MB (CK-2) Troponin T NT-Pro-B Natriuret Pep Total Protein Albumin Triglycerides HDL Cholesterol Folate Urine WBC (Auto) Urine Creatinine Urine Total Protein Vancomycin Trough 06/16/19 06/16/19 06/16/19 12:03 17:11 18:11 WBC RBC Hgb Hct MCV MCH MCHC RDW Plt Count Lymph % (Auto) Hart % (Auto) Eos % (Auto) Lymph # Hart # Eos # Seg Neutrophils % Seg Neuts % (Manual) Lymphocytes % (Manual) Monocytes % (Manual) Eosinophils % (Manual) Nucleated RBC % Seg Neutrophils # Seg Neutrophils # Man Lymphocytes # (Manual) Monocytes # (Manual) Eosinophils # (Manual) PT INR APTT Fibrinogen POC ABG pH ABG pH 7.289 L POC ABG pCO2 POC ABG pO2 ABG pO2 399.3 H ABG HCO3 30.1 H ABG O2 Saturation 99.6 H ABG Base Excess ABG Hemoglobin 8.6 L Oxyhemoglobin Sodium Potassium Chloride Carbon Dioxide BUN Creatinine Glucose POC Glucose 252 H 254 H Uric Acid Calcium Phosphorus Magnesium Iron TIBC AST ALT Total Creatine Kinase CK-MB (CK-2) Troponin T NT-Pro-B Natriuret Pep Total Protein Albumin Triglycerides HDL Cholesterol Folate Urine WBC (Auto) Urine Creatinine Urine Total Protein Vancomycin Trough 06/16/19 06/17/19 06/17/19 23:16 05:30 05:53 WBC RBC Hgb Hct MCV MCH MCHC RDW Plt Count Lymph % (Auto) Hart % (Auto) Eos % (Auto) Lymph # Hart # Eos # Seg Neutrophils % Seg Neuts % (Manual) Lymphocytes % (Manual) Monocytes % (Manual) Eosinophils % (Manual) Nucleated RBC % Seg Neutrophils # Seg Neutrophils # Man Lymphocytes # (Manual) Monocytes # (Manual) Eosinophils # (Manual) PT INR APTT Fibrinogen POC ABG pH ABG pH POC ABG pCO2 POC ABG pO2 ABG pO2 ABG HCO3 ABG O2 Saturation ABG Base Excess ABG Hemoglobin Oxyhemoglobin Sodium 147 H Potassium Chloride Carbon Dioxide 32 H BUN 60 H Creatinine Glucose 205 H POC Glucose 238 H 211 H Uric Acid Calcium Phosphorus Magnesium Iron TIBC AST ALT Total Creatine Kinase CK-MB (CK-2) Troponin T NT-Pro-B Natriuret Pep Total Protein Albumin Triglycerides HDL Cholesterol Folate Urine WBC (Auto) Urine Creatinine Urine Total Protein Vancomycin Trough 06/17/19 06/17/19 06/17/19 09:50 12:27 12:45 WBC RBC 2.79 L Hgb 8.2 L Hct 24.6 L MCV MCH MCHC RDW 18.5 H Plt Count 95 L Lymph % (Auto) Hart % (Auto) Eos % (Auto) Lymph # Hart # Eos # Seg Neutrophils % Seg Neuts % (Manual) Lymphocytes % (Manual) Monocytes % (Manual) Eosinophils % (Manual) Nucleated RBC % Seg Neutrophils # Seg Neutrophils # Man Lymphocytes # (Manual) Monocytes # (Manual) Eosinophils # (Manual) PT INR APTT Fibrinogen 194 L POC ABG pH ABG pH POC ABG pCO2 POC ABG pO2 ABG pO2 ABG HCO3 ABG O2 Saturation ABG Base Excess ABG Hemoglobin Oxyhemoglobin Sodium Potassium Chloride Carbon Dioxide BUN Creatinine Glucose POC Glucose 224 H Uric Acid Calcium Phosphorus Magnesium Iron TIBC AST ALT Total Creatine Kinase CK-MB (CK-2) Troponin T NT-Pro-B Natriuret Pep Total Protein Albumin Triglycerides HDL Cholesterol Folate Urine WBC (Auto) Urine Creatinine Urine Total Protein Vancomycin Trough 06/17/19 06/17/19 06/17/19 18:41 22:00 23:23 WBC RBC Hgb Hct MCV MCH MCHC RDW Plt Count Lymph % (Auto) Hart % (Auto) Eos % (Auto) Lymph # Hart # Eos # Seg Neutrophils % Seg Neuts % (Manual) Lymphocytes % (Manual) Monocytes % (Manual) Eosinophils % (Manual) Nucleated RBC % Seg Neutrophils # Seg Neutrophils # Man Lymphocytes # (Manual) Monocytes # (Manual) Eosinophils # (Manual) PT INR APTT Fibrinogen POC ABG pH ABG pH POC ABG pCO2 POC ABG pO2 ABG pO2 ABG HCO3 ABG O2 Saturation ABG Base Excess ABG Hemoglobin Oxyhemoglobin Sodium Potassium Chloride Carbon Dioxide BUN Creatinine Glucose POC Glucose 198 H 166 H 171 H Uric Acid Calcium Phosphorus Magnesium Iron TIBC AST ALT Total Creatine Kinase CK-MB (CK-2) Troponin T NT-Pro-B Natriuret Pep Total Protein Albumin Triglycerides HDL Cholesterol Folate Urine WBC (Auto) Urine Creatinine Urine Total Protein Vancomycin Trough 01/23/20 01/24/20 01/24/20 Unknown 03:50 04:25 WBC RBC Hgb Hct MCV MCH MCHC RDW Plt Count Lymph % (Auto) Hart % (Auto) Eos % (Auto) Lymph # Hart # Eos # Seg Neutrophils % Seg Neuts % (Manual) Lymphocytes % (Manual) Monocytes % (Manual) Eosinophils % (Manual) Nucleated RBC % Seg Neutrophils # Seg Neutrophils # Man Lymphocytes # (Manual) Monocytes # (Manual) Eosinophils # (Manual) PT INR APTT Fibrinogen POC ABG pH ABG pH 7.564 H 7.499 H POC ABG pCO2 POC ABG pO2 ABG pO2 238.6 H 130.8 H ABG HCO3 33.6 H 32.5 H ABG O2 Saturation 99.4 H ABG Base Excess 10.6 H 8.5 H ABG Hemoglobin 7.9 L 8.8 L Oxyhemoglobin Sodium 151 H Potassium 3.4 L Chloride Carbon Dioxide BUN 66 H Creatinine Glucose 189 H POC Glucose Uric Acid Calcium Phosphorus Magnesium Iron TIBC AST ALT Total Creatine Kinase CK-MB (CK-2) Troponin T NT-Pro-B Natriuret Pep Total Protein Albumin Triglycerides HDL Cholesterol Folate Urine WBC (Auto) Urine Creatinine Urine Total Protein Vancomycin Trough 06/18/19 06/18/19 06/18/19 05:25 05:27 11:50 WBC RBC 2.61 L Hgb 7.4 L Hct 22.9 L MCV MCH MCHC RDW 19.9 H Plt Count 81 L Lymph % (Auto) 12.9 L Hart % (Auto) 7.7 H Eos % (Auto) Lymph # 1.1 L Hart # Eos # Seg Neutrophils % 77.4 H Seg Neuts % (Manual) Lymphocytes % (Manual) Monocytes % (Manual) Eosinophils % (Manual) Nucleated RBC % Seg Neutrophils # Seg Neutrophils # Man Lymphocytes # (Manual) Monocytes # (Manual) Eosinophils # (Manual) PT INR APTT Fibrinogen POC ABG pH ABG pH POC ABG pCO2 POC ABG pO2 ABG pO2 ABG HCO3 ABG O2 Saturation ABG Base Excess ABG Hemoglobin Oxyhemoglobin Sodium Potassium Chloride Carbon Dioxide BUN Creatinine Glucose POC Glucose 186 H 263 H Uric Acid Calcium Phosphorus Magnesium Iron TIBC AST ALT Total Creatine Kinase CK-MB (CK-2) Troponin T NT-Pro-B Natriuret Pep Total Protein Albumin Triglycerides HDL Cholesterol Folate Urine WBC (Auto) Urine Creatinine Urine Total Protein Vancomycin Trough 06/18/19 06/18/19 06/18/19 18:35 21:31 23:21 WBC RBC Hgb Hct MCV MCH MCHC RDW Plt Count Lymph % (Auto) Hart % (Auto) Eos % (Auto) Lymph # Hart # Eos # Seg Neutrophils % Seg Neuts % (Manual) Lymphocytes % (Manual) Monocytes % (Manual) Eosinophils % (Manual) Nucleated RBC % Seg Neutrophils # Seg Neutrophils # Man Lymphocytes # (Manual) Monocytes # (Manual) Eosinophils # (Manual) PT INR APTT Fibrinogen POC ABG pH ABG pH POC ABG pCO2 POC ABG pO2 ABG pO2 ABG HCO3 ABG O2 Saturation ABG Base Excess ABG Hemoglobin Oxyhemoglobin Sodium Potassium Chloride Carbon Dioxide BUN Creatinine Glucose POC Glucose 154 H 186 H 202 H Uric Acid Calcium Phosphorus Magnesium Iron TIBC AST ALT Total Creatine Kinase CK-MB (CK-2) Troponin T NT-Pro-B Natriuret Pep Total Protein Albumin Triglycerides HDL Cholesterol Folate Urine WBC (Auto) Urine Creatinine Urine Total Protein Vancomycin Trough 06/19/19 06/19/19 06/19/19 03:18 04:30 04:30 WBC RBC 2.65 L Hgb 7.5 L Hct 23.1 L MCV MCH MCHC RDW 19.4 H Plt Count 74 L Lymph % (Auto) 8.8 L Hart % (Auto) 9.4 H Eos % (Auto) 4.7 H Lymph # 0.6 L Hart # Eos # Seg Neutrophils % 76.6 H Seg Neuts % (Manual) Lymphocytes % (Manual) Monocytes % (Manual) Eosinophils % (Manual) Nucleated RBC % Seg Neutrophils # Seg Neutrophils # Man Lymphocytes # (Manual) Monocytes # (Manual) Eosinophils # (Manual) PT INR APTT Fibrinogen POC ABG pH ABG pH 7.452 H POC ABG pCO2 POC ABG pO2 ABG pO2 105.5 H ABG HCO3 32.3 H ABG O2 Saturation ABG Base Excess 7.6 H ABG Hemoglobin 6.9 L Oxyhemoglobin Sodium 150 H Potassium 3.3 L Chloride Carbon Dioxide 31 H BUN 56 H Creatinine Glucose 197 H POC Glucose Uric Acid Calcium Phosphorus Magnesium Iron TIBC AST ALT Total Creatine Kinase CK-MB (CK-2) Troponin T NT-Pro-B Natriuret Pep Total Protein Albumin Triglycerides 210 H HDL Cholesterol Folate Urine WBC (Auto) Urine Creatinine Urine Total Protein Vancomycin Trough 06/19/19 06/19/19 06/19/19 05:24 12:18 18:55 WBC RBC Hgb Hct MCV MCH MCHC RDW Plt Count Lymph % (Auto) Hart % (Auto) Eos % (Auto) Lymph # Hart # Eos # Seg Neutrophils % Seg Neuts % (Manual) Lymphocytes % (Manual) Monocytes % (Manual) Eosinophils % (Manual) Nucleated RBC % Seg Neutrophils # Seg Neutrophils # Man Lymphocytes # (Manual) Monocytes # (Manual) Eosinophils # (Manual) PT INR APTT Fibrinogen POC ABG pH ABG pH POC ABG pCO2 POC ABG pO2 ABG pO2 ABG HCO3 ABG O2 Saturation ABG Base Excess ABG Hemoglobin Oxyhemoglobin Sodium Potassium Chloride Carbon Dioxide BUN Creatinine Glucose POC Glucose 176 H 260 H 192 H Uric Acid Calcium Phosphorus Magnesium Iron TIBC AST ALT Total Creatine Kinase CK-MB (CK-2) Troponin T NT-Pro-B Natriuret Pep Total Protein Albumin Triglycerides HDL Cholesterol Folate Urine WBC (Auto) Urine Creatinine Urine Total Protein Vancomycin Trough 06/19/19 06/19/19 06/20/19 22:57 23:46 04:40 WBC RBC 2.79 L Hgb 7.9 L Hct 24.3 L MCV MCH MCHC RDW 19.6 H Plt Count 92 L Lymph % (Auto) 9.2 L Hart % (Auto) 12.0 H Eos % (Auto) 5.2 H Lymph # 0.9 L Hart # 1.2 H Eos # 0.5 H Seg Neutrophils % 73.3 H Seg Neuts % (Manual) Lymphocytes % (Manual) Monocytes % (Manual) Eosinophils % (Manual) Nucleated RBC % Seg Neutrophils # Seg Neutrophils # Man Lymphocytes # (Manual) Monocytes # (Manual) Eosinophils # (Manual) PT INR APTT Fibrinogen POC ABG pH ABG pH POC ABG pCO2 POC ABG pO2 ABG pO2 ABG HCO3 ABG O2 Saturation ABG Base Excess ABG Hemoglobin Oxyhemoglobin Sodium Potassium Chloride Carbon Dioxide BUN Creatinine Glucose POC Glucose 145 H 216 H Uric Acid Calcium Phosphorus Magnesium Iron TIBC AST ALT Total Creatine Kinase CK-MB (CK-2) Troponin T NT-Pro-B Natriuret Pep Total Protein Albumin Triglycerides HDL Cholesterol Folate Urine WBC (Auto) Urine Creatinine Urine Total Protein Vancomycin Trough 06/20/19 06/20/19 06/20/19 04:40 05:40 05:54 WBC RBC Hgb Hct MCV MCH MCHC RDW Plt Count Lymph % (Auto) Hart % (Auto) Eos % (Auto) Lymph # Hart # Eos # Seg Neutrophils % Seg Neuts % (Manual) Lymphocytes % (Manual) Monocytes % (Manual) Eosinophils % (Manual) Nucleated RBC % Seg Neutrophils # Seg Neutrophils # Man Lymphocytes # (Manual) Monocytes # (Manual) Eosinophils # (Manual) PT INR APTT Fibrinogen POC ABG pH ABG pH 7.455 H POC ABG pCO2 POC ABG pO2 ABG pO2 60.9 L ABG HCO3 30.3 H ABG O2 Saturation 92.3 L ABG Base Excess 5.8 H ABG Hemoglobin 8.2 L Oxyhemoglobin 90.1 L Sodium Potassium 3.5 L Chloride Carbon Dioxide BUN 59 H Creatinine Glucose 200 H POC Glucose 190 H Uric Acid Calcium Phosphorus Magnesium 1.60 L Iron TIBC AST ALT Total Creatine Kinase CK-MB (CK-2) Troponin T NT-Pro-B Natriuret Pep Total Protein Albumin Triglycerides HDL Cholesterol Folate Urine WBC (Auto) Urine Creatinine Urine Total Protein Vancomycin Trough 06/20/19 06/20/19 06/20/19 09:12 09:12 12:24 WBC RBC Hgb Hct MCV MCH MCHC RDW Plt Count Lymph % (Auto) Hart % (Auto) Eos % (Auto) Lymph # Hart # Eos # Seg Neutrophils % Seg Neuts % (Manual) Lymphocytes % (Manual) Monocytes % (Manual) Eosinophils % (Manual) Nucleated RBC % Seg Neutrophils # Seg Neutrophils # Man Lymphocytes # (Manual) Monocytes # (Manual) Eosinophils # (Manual) PT INR APTT Fibrinogen POC ABG pH ABG pH POC ABG pCO2 POC ABG pO2 ABG pO2 ABG HCO3 ABG O2 Saturation ABG Base Excess ABG Hemoglobin Oxyhemoglobin Sodium Potassium Chloride Carbon Dioxide BUN Creatinine Glucose POC Glucose 225 H Uric Acid Calcium Phosphorus Magnesium Iron 45 L TIBC 110 L AST ALT Total Creatine Kinase CK-MB (CK-2) Troponin T NT-Pro-B Natriuret Pep Total Protein Albumin Triglycerides HDL Cholesterol Folate 7.01 L Urine WBC (Auto) Urine Creatinine Urine Total Protein Vancomycin Trough 06/20/19 06/20/19 06/20/19 17:42 21:55 23:24 WBC RBC Hgb Hct MCV MCH MCHC RDW Plt Count Lymph % (Auto) Hart % (Auto) Eos % (Auto) Lymph # Hart # Eos # Seg Neutrophils % Seg Neuts % (Manual) Lymphocytes % (Manual) Monocytes % (Manual) Eosinophils % (Manual) Nucleated RBC % Seg Neutrophils # Seg Neutrophils # Man Lymphocytes # (Manual) Monocytes # (Manual) Eosinophils # (Manual) PT INR APTT Fibrinogen POC ABG pH ABG pH POC ABG pCO2 POC ABG pO2 ABG pO2 ABG HCO3 ABG O2 Saturation ABG Base Excess ABG Hemoglobin Oxyhemoglobin Sodium Potassium Chloride Carbon Dioxide BUN Creatinine Glucose POC Glucose 255 H 218 H 215 H Uric Acid Calcium Phosphorus Magnesium Iron TIBC AST ALT Total Creatine Kinase CK-MB (CK-2) Troponin T NT-Pro-B Natriuret Pep Total Protein Albumin Triglycerides HDL Cholesterol Folate Urine WBC (Auto) Urine Creatinine Urine Total Protein Vancomycin Trough 06/21/19 06/21/19 06/21/19 03:32 03:40 05:20 WBC 12.8 H RBC 3.03 L Hgb 8.5 L Hct 26.2 L MCV MCH MCHC RDW 19.4 H Plt Count 131 L Lymph % (Auto) Hart % (Auto) Eos % (Auto) Lymph # Hart # Eos # Seg Neutrophils % Seg Neuts % (Manual) 78.0 H Lymphocytes % (Manual) 5.0 L Monocytes % (Manual) 11.0 H Eosinophils % (Manual) Nucleated RBC % Seg Neutrophils # Seg Neutrophils # Man 10.0 H Lymphocytes # (Manual) 0.6 L Monocytes # (Manual) 1.4 H Eosinophils # (Manual) 0.5 H PT INR APTT Fibrinogen POC ABG pH ABG pH 7.476 H POC ABG pCO2 POC ABG pO2 ABG pO2 162.0 H ABG HCO3 26.8 H ABG O2 Saturation 99.1 H ABG Base Excess 3.1 H ABG Hemoglobin 8.6 L Oxyhemoglobin Sodium Potassium Chloride Carbon Dioxide BUN Creatinine Glucose POC Glucose 202 H Uric Acid Calcium Phosphorus Magnesium Iron TIBC AST ALT Total Creatine Kinase CK-MB (CK-2) Troponin T NT-Pro-B Natriuret Pep Total Protein Albumin Triglycerides HDL Cholesterol Folate Urine WBC (Auto) Urine Creatinine Urine Total Protein Vancomycin Trough 06/21/19 06/21/19 06/21/19 05:20 12:30 18:18 WBC RBC Hgb Hct MCV MCH MCHC RDW Plt Count Lymph % (Auto) Hart % (Auto) Eos % (Auto) Lymph # Hart # Eos # Seg Neutrophils % Seg Neuts % (Manual) Lymphocytes % (Manual) Monocytes % (Manual) Eosinophils % (Manual) Nucleated RBC % Seg Neutrophils # Seg Neutrophils # Man Lymphocytes # (Manual) Monocytes # (Manual) Eosinophils # (Manual) PT INR APTT Fibrinogen POC ABG pH ABG pH POC ABG pCO2 POC ABG pO2 ABG pO2 ABG HCO3 ABG O2 Saturation ABG Base Excess ABG Hemoglobin Oxyhemoglobin Sodium Potassium Chloride 97.7 L Carbon Dioxide BUN 69 H Creatinine Glucose 239 H POC Glucose 176 H 187 H Uric Acid Calcium Phosphorus Magnesium 2.40 H Iron TIBC AST ALT Total Creatine Kinase CK-MB (CK-2) Troponin T NT-Pro-B Natriuret Pep Total Protein Albumin Triglycerides HDL Cholesterol Folate Urine WBC (Auto) Urine Creatinine Urine Total Protein Vancomycin Trough 06/22/19 06/22/19 06/22/19 04:11 05:30 05:30 WBC 12.6 H RBC 3.10 L Hgb 8.7 L Hct 27.0 L MCV MCH MCHC RDW 19.8 H Plt Count Lymph % (Auto) Hart % (Auto) Eos % (Auto) Lymph # Hart # Eos # Seg Neutrophils % Seg Neuts % (Manual) Lymphocytes % (Manual) Monocytes % (Manual) 10.0 H Eosinophils % (Manual) Nucleated RBC % Seg Neutrophils # Seg Neutrophils # Man 8.7 H Lymphocytes # (Manual) Monocytes # (Manual) 1.3 H Eosinophils # (Manual) PT INR APTT Fibrinogen POC ABG pH ABG pH POC ABG pCO2 POC ABG pO2 ABG pO2 ABG HCO3 27.7 H ABG O2 Saturation ABG Base Excess 3.3 H ABG Hemoglobin 8.5 L Oxyhemoglobin 94.9 L Sodium Potassium Chloride Carbon Dioxide BUN 66 H Creatinine Glucose 103 H POC Glucose Uric Acid Calcium Phosphorus Magnesium Iron TIBC AST ALT Total Creatine Kinase CK-MB (CK-2) Troponin T NT-Pro-B Natriuret Pep Total Protein Albumin Triglycerides HDL Cholesterol Folate Urine WBC (Auto) Urine Creatinine Urine Total Protein Vancomycin Trough 06/22/19 06/22/19 06/23/19 17:43 23:25 02:00 WBC RBC Hgb Hct MCV MCH MCHC RDW Plt Count Lymph % (Auto) Hart % (Auto) Eos % (Auto) Lymph # Hart # Eos # Seg Neutrophils % Seg Neuts % (Manual) Lymphocytes % (Manual) Monocytes % (Manual) Eosinophils % (Manual) Nucleated RBC % Seg Neutrophils # Seg Neutrophils # Man Lymphocytes # (Manual) Monocytes # (Manual) Eosinophils # (Manual) PT INR APTT Fibrinogen POC ABG pH ABG pH 7.469 H POC ABG pCO2 POC ABG pO2 ABG pO2 58.7 L ABG HCO3 28.0 H ABG O2 Saturation 94.6 L ABG Base Excess 4.0 H ABG Hemoglobin 7.1 L Oxyhemoglobin 92.2 L Sodium Potassium Chloride Carbon Dioxide BUN Creatinine Glucose POC Glucose 143 H 106 H Uric Acid Calcium Phosphorus Magnesium Iron TIBC AST ALT Total Creatine Kinase CK-MB (CK-2) Troponin T NT-Pro-B Natriuret Pep Total Protein Albumin Triglycerides HDL Cholesterol Folate Urine WBC (Auto) Urine Creatinine Urine Total Protein Vancomycin Trough 06/23/19 06/23/19 06/23/19 05:24 05:24 11:43 WBC 12.6 H RBC 2.96 L Hgb 8.3 L Hct 25.5 L MCV MCH MCHC RDW 20.2 H Plt Count Lymph % (Auto) Hart % (Auto) Eos % (Auto) Lymph # Hart # Eos # Seg Neutrophils % Seg Neuts % (Manual) Lymphocytes % (Manual) 12.0 L Monocytes % (Manual) 11.0 H Eosinophils % (Manual) 6.0 H Nucleated RBC % Seg Neutrophils # Seg Neutrophils # Man 8.8 H Lymphocytes # (Manual) Monocytes # (Manual) 1.4 H Eosinophils # (Manual) 0.8 H PT INR APTT Fibrinogen POC ABG pH ABG pH POC ABG pCO2 POC ABG pO2 ABG pO2 ABG HCO3 ABG O2 Saturation ABG Base Excess ABG Hemoglobin Oxyhemoglobin Sodium 146 H Potassium 3.5 L Chloride Carbon Dioxide BUN 48 H Creatinine Glucose 123 H POC Glucose 120 H Uric Acid Calcium Phosphorus Magnesium Iron TIBC AST ALT Total Creatine Kinase CK-MB (CK-2) Troponin T NT-Pro-B Natriuret Pep Total Protein Albumin Triglycerides HDL Cholesterol Folate Urine WBC (Auto) Urine Creatinine Urine Total Protein Vancomycin Trough 06/23/19 06/24/19 06/24/19 17:39 06:53 06:53 WBC 12.3 H RBC 2.87 L Hgb 8.0 L Hct 24.9 L MCV MCH MCHC RDW 20.5 H Plt Count Lymph % (Auto) Hart % (Auto) 8.8 H Eos % (Auto) 4.4 H Lymph # Hart # 1.1 H Eos # 0.5 H Seg Neutrophils % Seg Neuts % (Manual) Lymphocytes % (Manual) Monocytes % (Manual) Eosinophils % (Manual) Nucleated RBC % Seg Neutrophils # Seg Neutrophils # Man Lymphocytes # (Manual) Monocytes # (Manual) Eosinophils # (Manual) PT INR APTT Fibrinogen POC ABG pH ABG pH POC ABG pCO2 POC ABG pO2 ABG pO2 ABG HCO3 ABG O2 Saturation ABG Base Excess ABG Hemoglobin Oxyhemoglobin Sodium Potassium Chloride 107.1 H Carbon Dioxide 21 L BUN 29 H Creatinine 0.6 L Glucose 117 H POC Glucose 111 H Uric Acid Calcium Phosphorus Magnesium 1.60 L Iron TIBC AST ALT Total Creatine Kinase CK-MB (CK-2) Troponin T NT-Pro-B Natriuret Pep Total Protein Albumin Triglycerides HDL Cholesterol Folate Urine WBC (Auto) Urine Creatinine Urine Total Protein Vancomycin Trough 06/24/19 06/24/19 06/24/19 12:12 18:01 23:20 WBC RBC Hgb Hct MCV MCH MCHC RDW Plt Count Lymph % (Auto) Hart % (Auto) Eos % (Auto) Lymph # Hart # Eos # Seg Neutrophils % Seg Neuts % (Manual) Lymphocytes % (Manual) Monocytes % (Manual) Eosinophils % (Manual) Nucleated RBC % Seg Neutrophils # Seg Neutrophils # Man Lymphocytes # (Manual) Monocytes # (Manual) Eosinophils # (Manual) PT INR APTT Fibrinogen POC ABG pH ABG pH POC ABG pCO2 POC ABG pO2 ABG pO2 ABG HCO3 ABG O2 Saturation ABG Base Excess ABG Hemoglobin Oxyhemoglobin Sodium Potassium Chloride Carbon Dioxide BUN Creatinine Glucose POC Glucose 158 H 133 H 106 H Uric Acid Calcium Phosphorus Magnesium Iron TIBC AST ALT Total Creatine Kinase CK-MB (CK-2) Troponin T NT-Pro-B Natriuret Pep Total Protein Albumin Triglycerides HDL Cholesterol Folate Urine WBC (Auto) Urine Creatinine Urine Total Protein Vancomycin Trough 06/25/19 06/25/19 06/25/19 04:46 04:46 05:36 WBC 12.3 H RBC 2.98 L Hgb 8.3 L Hct 26.4 L MCV MCH MCHC 31 L RDW 20.1 H Plt Count Lymph % (Auto) Hart % (Auto) Eos % (Auto) Lymph # Hart # Eos # Seg Neutrophils % Seg Neuts % (Manual) Lymphocytes % (Manual) Monocytes % (Manual) 10.0 H Eosinophils % (Manual) Nucleated RBC % Seg Neutrophils # Seg Neutrophils # Man 8.1 H Lymphocytes # (Manual) Monocytes # (Manual) 1.2 H Eosinophils # (Manual) PT INR APTT Fibrinogen POC ABG pH ABG pH POC ABG pCO2 POC ABG pO2 ABG pO2 ABG HCO3 ABG O2 Saturation ABG Base Excess ABG Hemoglobin Oxyhemoglobin Sodium 148 H Potassium Chloride 108.0 H Carbon Dioxide BUN 21 H Creatinine 0.7 L Glucose 120 H POC Glucose 121 H Uric Acid Calcium Phosphorus Magnesium Iron TIBC AST ALT Total Creatine Kinase CK-MB (CK-2) Troponin T NT-Pro-B Natriuret Pep Total Protein Albumin Triglycerides HDL Cholesterol Folate Urine WBC (Auto) Urine Creatinine Urine Total Protein Vancomycin Trough 06/25/19 06/25/19 06/26/19 14:02 18:30 00:01 WBC RBC Hgb Hct MCV MCH MCHC RDW Plt Count Lymph % (Auto) Hart % (Auto) Eos % (Auto) Lymph # Hart # Eos # Seg Neutrophils % Seg Neuts % (Manual) Lymphocytes % (Manual) Monocytes % (Manual) Eosinophils % (Manual) Nucleated RBC % Seg Neutrophils # Seg Neutrophils # Man Lymphocytes # (Manual) Monocytes # (Manual) Eosinophils # (Manual) PT INR APTT Fibrinogen POC ABG pH ABG pH POC ABG pCO2 POC ABG pO2 ABG pO2 ABG HCO3 ABG O2 Saturation ABG Base Excess ABG Hemoglobin Oxyhemoglobin Sodium Potassium Chloride Carbon Dioxide BUN Creatinine Glucose POC Glucose 125 H 145 H 142 H Uric Acid Calcium Phosphorus Magnesium Iron TIBC AST ALT Total Creatine Kinase CK-MB (CK-2) Troponin T NT-Pro-B Natriuret Pep Total Protein Albumin Triglycerides HDL Cholesterol Folate Urine WBC (Auto) Urine Creatinine Urine Total Protein Vancomycin Trough 06/26/19 06/26/19 06/26/19 04:43 04:43 05:41 WBC RBC 3.02 L Hgb 8.6 L Hct 27.0 L MCV MCH MCHC RDW 20.4 H Plt Count Lymph % (Auto) Hart % (Auto) Eos % (Auto) Lymph # Hart # Eos # Seg Neutrophils % Seg Neuts % (Manual) Lymphocytes % (Manual) Monocytes % (Manual) 9.0 H Eosinophils % (Manual) Nucleated RBC % Seg Neutrophils # Seg Neutrophils # Man Lymphocytes # (Manual) Monocytes # (Manual) 1.0 H Eosinophils # (Manual) PT INR APTT Fibrinogen POC ABG pH ABG pH POC ABG pCO2 POC ABG pO2 ABG pO2 ABG HCO3 ABG O2 Saturation ABG Base Excess ABG Hemoglobin Oxyhemoglobin Sodium Potassium Chloride Carbon Dioxide BUN Creatinine 0.7 L Glucose 111 H POC Glucose 110 H Uric Acid Calcium Phosphorus Magnesium 1.60 L Iron TIBC AST ALT Total Creatine Kinase CK-MB (CK-2) Troponin T NT-Pro-B Natriuret Pep Total Protein Albumin Triglycerides HDL Cholesterol Folate Urine WBC (Auto) Urine Creatinine Urine Total Protein Vancomycin Trough
[2019-06-26] MEDS ORDERED: MAGNESIUM SULFATE 2 GM/50 ML BAG IV ONE ×2 (10:30→15:00)
[2019-06-26] MEDS: ACETAMINOPHEN 325 MG/10.15 ML ORAL LIQD UNIT DOSE PO SCH ×2 (11:00→18:07)
[2019-06-26] MEDS: INSULIN LISPRO 100 UNIT/ML SUB-Q SCH ×2 (12:05→18:09)
[2019-06-26] MEDS: fentaNYL 100 MCG/2 ML INJ IV PRN (14:27)
--- NOTE | 2019-06-26 19:36 | Progress Note ---
Subjective Date of service: 06/26/19 Principal diagnosis: anemia - LOw PLT Interval history: interval review of labs / notes / data points basically no change in neuro state worth elaborating on semi coma Objective - Vital Sign Vital Signs - 12hr 06/26/19 06/26/19 06/26/19 07:37 07:45 07:50 Temperature Pulse Rate 86 Pulse Rate [ From Monitor] Respiratory 15 Rate Blood Pressure 165/99 157/109 O2 Sat by Pulse 100 100 99 Oximetry O2 Sat by Pulse Oximetry [ Assessment] 06/26/19 06/26/19 06/26/19 08:00 08:15 08:30 Temperature 98.5 F Pulse Rate 90 100 H 98 H Pulse Rate [ 90 From Monitor] Respiratory 26 H 22 23 Rate Blood Pressure 152/83 167/80 157/84 O2 Sat by Pulse 100 Oximetry O2 Sat by Pulse Oximetry [ Assessment] 06/26/19 06/26/19 06/26/19 08:45 09:00 09:15 Temperature Pulse Rate 97 H 95 H 90 Pulse Rate [ From Monitor] Respiratory 32 H 30 H 27 H Rate Blood Pressure 150/92 152/92 157/85 O2 Sat by Pulse Oximetry O2 Sat by Pulse Oximetry [ Assessment] 06/26/19 06/26/19 06/26/19 09:30 09:45 09:51 Temperature Pulse Rate 91 H 99 H 91 H Pulse Rate [ From Monitor] Respiratory 27 H 24 Rate Blood Pressure 144/84 167/103 167/103 O2 Sat by Pulse Oximetry O2 Sat by Pulse Oximetry [ Assessment] 06/26/19 06/26/19 06/26/19 10:00 10:15 10:30 Temperature Pulse Rate 103 H 98 H 100 H Pulse Rate [ From Monitor] Respiratory 32 H 23 23 Rate Blood Pressure 137/104 141/92 148/89 O2 Sat by Pulse 98 Oximetry O2 Sat by Pulse Oximetry [ Assessment] 06/26/19 06/26/19 06/26/19 10:45 11:00 11:15 Temperature Pulse Rate 96 H 92 H 91 H Pulse Rate [ From Monitor] Respiratory 30 H 28 H 32 H Rate Blood Pressure 142/82 163/103 163/101 O2 Sat by Pulse 96 97 Oximetry O2 Sat by Pulse Oximetry [ Assessment] 06/26/19 06/26/19 06/26/19 11:30 11:45 12:00 Temperature 99.0 F Pulse Rate 90 93 H 90 Pulse Rate [ 90 From Monitor] Respiratory 28 H 22 33 H Rate Blood Pressure 162/88 147/87 157/104 O2 Sat by Pulse 98 97 100 Oximetry O2 Sat by Pulse 99 Oximetry [ Assessment] 06/26/19 06/26/19 06/26/19 12:15 12:30 12:45 Temperature Pulse Rate 90 91 H 97 H Pulse Rate [ From Monitor] Respiratory 20 32 H 34 H Rate Blood Pressure 165/89 168/106 165/89 O2 Sat by Pulse Oximetry O2 Sat by Pulse Oximetry [ Assessment] 06/26/19 06/26/19 06/26/19 13:00 13:15 13:30 Temperature Pulse Rate 92 H 87 97 H Pulse Rate [ From Monitor] Respiratory 33 H 19 34 H Rate Blood Pressure 165/101 164/107 171/108 O2 Sat by Pulse 92 Oximetry O2 Sat by Pulse Oximetry [ Assessment] 06/26/19 06/26/19 06/26/19 13:45 14:01 14:15 Temperature Pulse Rate 104 H 94 H Pulse Rate [ From Monitor] Respiratory 15 23 Rate Blood Pressure 171/108 154/112 154/112 O2 Sat by Pulse 92 95 Oximetry O2 Sat by Pulse Oximetry [ Assessment] 06/26/19 06/26/19 06/26/19 14:28 14:30 14:45 Temperature Pulse Rate 94 H 88 85 Pulse Rate [ From Monitor] Respiratory 14 25 H Rate Blood Pressure 173/104 160/108 165/98 O2 Sat by Pulse 96 89 Oximetry O2 Sat by Pulse Oximetry [ Assessment] 06/26/19 06/26/19 06/26/19 15:00 15:15 15:30 Temperature Pulse Rate 96 H 85 89 Pulse Rate [ From Monitor] Respiratory 16 22 26 H Rate Blood Pressure 155/101 166/90 167/95 O2 Sat by Pulse 94 94 94 Oximetry O2 Sat by Pulse Oximetry [ Assessment] 06/26/19 06/26/19 06/26/19 15:45 16:00 16:15 Temperature 99.8 F H Pulse Rate 84 84 92 H Pulse Rate [ 84 From Monitor] Respiratory 28 H 29 H 23 Rate Blood Pressure 157/96 153/88 163/101 O2 Sat by Pulse 95 96 97 Oximetry O2 Sat by Pulse Oximetry [ Assessment] 06/26/19 06/26/19 06/26/19 16:30 16:45 17:01 Temperature Pulse Rate 90 91 H 90 Pulse Rate [ From Monitor] Respiratory 21 27 H 29 H Rate Blood Pressure 150/105 146/117 149/74 O2 Sat by Pulse 98 97 98 Oximetry O2 Sat by Pulse Oximetry [ Assessment] 06/26/19 06/26/19 06/26/19 17:15 17:30 17:45 Temperature Pulse Rate 87 90 Pulse Rate [ From Monitor] Respiratory 24 11 L Rate Blood Pressure 149/83 163/98 154/90 O2 Sat by Pulse 98 97 90 Oximetry O2 Sat by Pulse Oximetry [ Assessment] 06/26/19 06/26/19 06/26/19 18:00 18:15 18:30 Temperature Pulse Rate 83 84 98 H Pulse Rate [ From Monitor] Respiratory 13 26 H 28 H Rate Blood Pressure 168/93 154/100 148/94 O2 Sat by Pulse 96 97 96 Oximetry O2 Sat by Pulse Oximetry [ Assessment] 06/26/19 06/26/19 06/26/19 18:45 19:01 19:15 Temperature Pulse Rate 98 H Pulse Rate [ 99 H From Monitor] Respiratory 25 H Rate Blood Pressure 148/94 154/100 154/100 O2 Sat by Pulse 87 90 96 Oximetry O2 Sat by Pulse Oximetry [ Assessment] - Laboratory Findings CBC and BMP: 06/26/19 04:43 06/26/19 04:43 Abnormal Lab Findings: Abnormal Labs 05/01/19 05/01/19 05/01/19 17:50 19:26 22:36 WBC RBC Hgb Hct MCV MCH MCHC RDW Plt Count Lymph % (Auto) [place] % (Auto) Eos % (Auto) Lymph # [place] # Eos # Seg Neutrophils % Seg Neuts % (Manual) Lymphocytes % (Manual) Monocytes % (Manual) Eosinophils % (Manual) Nucleated RBC % Seg Neutrophils # Seg Neutrophils # Man Lymphocytes # (Manual) Monocytes # (Manual) Eosinophils # (Manual) PT INR APTT Fibrinogen POC ABG pH 7.272 L 7.331 L ABG pH POC ABG pCO2 52.8 H POC ABG pO2 ABG pO2 ABG HCO3 ABG O2 Saturation ABG Base Excess ABG Hemoglobin Oxyhemoglobin Sodium 136 L Potassium 6.5 H* Chloride 97.2 L Carbon Dioxide BUN 60 H Creatinine Glucose 113 H POC Glucose Uric Acid Calcium Phosphorus Magnesium 2.40 H Iron TIBC AST 139 H ALT 154 H Total Creatine Kinase CK-MB (CK-2) Troponin T NT-Pro-B Natriuret Pep Total Protein Albumin 3.8 L Triglycerides HDL Cholesterol Folate Urine WBC (Auto) Urine Creatinine Urine Total Protein Vancomycin Trough 05/01/19 05/01/19 05/01/19 Unknown Unknown Unknown WBC 16.1 H RBC Hgb Hct MCV MCH MCHC RDW 17.2 H Plt Count Lymph % (Auto) [place] % (Auto) 9.6 H Eos % (Auto) Lymph # [place] # 1.5 H Eos # Seg Neutrophils % 73.0 H Seg Neuts % (Manual) Lymphocytes % (Manual) Monocytes % (Manual) Eosinophils % (Manual) Nucleated RBC % Seg Neutrophils # 11.7 H Seg Neutrophils # Man Lymphocytes # (Manual) Monocytes # (Manual) Eosinophils # (Manual) PT 15.4 H INR 1.23 H APTT 22.7 L Fibrinogen POC ABG pH ABG pH POC ABG pCO2 POC ABG pO2 ABG pO2 ABG HCO3 ABG O2 Saturation ABG Base Excess ABG Hemoglobin Oxyhemoglobin Sodium Potassium Chloride Carbon Dioxide BUN Creatinine Glucose POC Glucose Uric Acid Calcium Phosphorus Magnesium Iron TIBC AST ALT Total Creatine Kinase CK-MB (CK-2) Troponin T NT-Pro-B Natriuret Pep 6831 H Total Protein Albumin Triglycerides HDL Cholesterol Folate Urine WBC (Auto) Urine Creatinine Urine Total Protein Vancomycin Trough 05/01/19 05/02/19 05/02/19 Unknown 00:06 00:06 WBC RBC Hgb Hct MCV MCH MCHC RDW Plt Count Lymph % (Auto) [place] % (Auto) Eos % (Auto) Lymph # [place] # Eos # Seg Neutrophils % Seg Neuts % (Manual) Lymphocytes % (Manual) Monocytes % (Manual) Eosinophils % (Manual) Nucleated RBC % Seg Neutrophils # Seg Neutrophils # Man Lymphocytes # (Manual) Monocytes # (Manual) Eosinophils # (Manual) PT INR APTT Fibrinogen POC ABG pH ABG pH POC ABG pCO2 POC ABG pO2 ABG pO2 ABG HCO3 ABG O2 Saturation ABG Base Excess ABG Hemoglobin Oxyhemoglobin Sodium Potassium Chloride Carbon Dioxide BUN Creatinine Glucose POC Glucose Uric Acid Calcium Phosphorus 4.90 H Magnesium Iron TIBC AST ALT Total Creatine Kinase 226 H CK-MB (CK-2) 5.7 H Troponin T 0.044 H NT-Pro-B Natriuret Pep Total Protein Albumin Triglycerides 182 H HDL Cholesterol 18 L Folate Urine WBC (Auto) Urine Creatinine Urine Total Protein Vancomycin Trough 05/02/19 05/02/19 05/02/19 02:08 04:40 04:41 WBC 17.6 H RBC Hgb Hct MCV MCH 27 L MCHC RDW 17.4 H Plt Count Lymph % (Auto) 10.2 L [place] % (Auto) 11.0 H Eos % (Auto) Lymph # [place] # 1.9 H Eos # Seg Neutrophils % 78.0 H Seg Neuts % (Manual) Lymphocytes % (Manual) Monocytes % (Manual) Eosinophils % (Manual) Nucleated RBC % Seg Neutrophils # 13.8 H Seg Neutrophils # Man Lymphocytes # (Manual) Monocytes # (Manual) Eosinophils # (Manual) PT INR APTT Fibrinogen POC ABG pH ABG pH POC ABG pCO2 46.8 H POC ABG pO2 63 L ABG pO2 ABG HCO3 ABG O2 Saturation ABG Base Excess ABG Hemoglobin Oxyhemoglobin Sodium Potassium Chloride 96.3 L Carbon Dioxide BUN 63 H Creatinine 1.7 H Glucose POC Glucose Uric Acid Calcium Phosphorus Magnesium Iron TIBC AST ALT Total Creatine Kinase CK-MB (CK-2) Troponin T NT-Pro-B Natriuret Pep Total Protein Albumin Triglycerides HDL Cholesterol Folate Urine WBC (Auto) Urine Creatinine Urine Total Protein Vancomycin Trough 05/02/19 05/02/19 05/02/19 04:41 04:41 16:05 WBC RBC Hgb Hct MCV MCH MCHC RDW Plt Count Lymph % (Auto) [place] % (Auto) Eos % (Auto) Lymph # [place] # Eos # Seg Neutrophils % Seg Neuts % (Manual) Lymphocytes % (Manual) Monocytes % (Manual) Eosinophils % (Manual) Nucleated RBC % Seg Neutrophils # Seg Neutrophils # Man Lymphocytes # (Manual) Monocytes # (Manual) Eosinophils # (Manual) PT INR APTT Fibrinogen POC ABG pH ABG pH POC ABG pCO2 POC ABG pO2 ABG pO2 66.6 L ABG HCO3 31.9 H ABG O2 Saturation 92.5 L ABG Base Excess 5.8 H ABG Hemoglobin 13.3 L Oxyhemoglobin 90.6 L Sodium Potassium Chloride 97.2 L Carbon Dioxide BUN 61 H Creatinine 1.8 H Glucose POC Glucose Uric Acid Calcium Phosphorus Magnesium Iron TIBC AST ALT Total Creatine Kinase CK-MB (CK-2) 5.2 H Troponin T 0.067 H D NT-Pro-B Natriuret Pep Total Protein Albumin Triglycerides HDL Cholesterol Folate Urine WBC (Auto) Urine Creatinine Urine Total Protein Vancomycin Trough 05/02/19 05/03/19 05/03/19 20:39 04:35 05:05 WBC 11.8 H RBC Hgb Hct MCV MCH 27 L MCHC 31 L RDW 17.2 H Plt Count Lymph % (Auto) [place] % (Auto) Eos % (Auto) Lymph # [place] # Eos # Seg Neutrophils % Seg Neuts % (Manual) Lymphocytes % (Manual) Monocytes % (Manual) Eosinophils % (Manual) Nucleated RBC % Seg Neutrophils # Seg Neutrophils # Man Lymphocytes # (Manual) Monocytes # (Manual) Eosinophils # (Manual) PT INR APTT Fibrinogen POC ABG pH ABG pH POC ABG pCO2 53.6 H 54.0 H POC ABG pO2 55 L 63 L ABG pO2 ABG HCO3 ABG O2 Saturation ABG Base Excess ABG Hemoglobin Oxyhemoglobin Sodium Potassium Chloride Carbon Dioxide BUN Creatinine Glucose POC Glucose Uric Acid Calcium Phosphorus Magnesium Iron TIBC AST ALT Total Creatine Kinase CK-MB (CK-2) Troponin T NT-Pro-B Natriuret Pep Total Protein Albumin Triglycerides HDL Cholesterol Folate Urine WBC (Auto) Urine Creatinine Urine Total Protein Vancomycin Trough 05/03/19 05/03/19 05/03/19 05:05 10:55 16:48 WBC RBC Hgb Hct MCV MCH MCHC RDW Plt Count Lymph % (Auto) [place] % (Auto) Eos % (Auto) Lymph # [place] # Eos # Seg Neutrophils % Seg Neuts % (Manual) Lymphocytes % (Manual) Monocytes % (Manual) Eosinophils % (Manual) Nucleated RBC % Seg Neutrophils # Seg Neutrophils # Man Lymphocytes # (Manual) Monocytes # (Manual) Eosinophils # (Manual) PT INR APTT Fibrinogen POC ABG pH 7.604 H ABG pH POC ABG pCO2 POC ABG pO2 58 L ABG pO2 ABG HCO3 ABG O2 Saturation ABG Base Excess ABG Hemoglobin Oxyhemoglobin Sodium Potassium Chloride Carbon Dioxide BUN 52 H Creatinine 1.9 H Glucose 103 H POC Glucose Uric Acid Calcium Phosphorus Magnesium Iron TIBC AST ALT Total Creatine Kinase CK-MB (CK-2) Troponin T NT-Pro-B Natriuret Pep Total Protein Albumin Triglycerides HDL Cholesterol Folate Urine WBC (Auto) 33.0 H Urine Creatinine Urine Total Protein Vancomycin Trough 05/04/19 05/04/19 05/04/19 04:49 06:50 06:50 WBC 16.0 H RBC Hgb Hct MCV MCH 27 L MCHC 31 L RDW 17.8 H Plt Count Lymph % (Auto) [place] % (Auto) Eos % (Auto) Lymph # [place] # Eos # Seg Neutrophils % Seg Neuts % (Manual) Lymphocytes % (Manual) Monocytes % (Manual) Eosinophils % (Manual) Nucleated RBC % Seg Neutrophils # Seg Neutrophils # Man Lymphocytes # (Manual) Monocytes # (Manual) Eosinophils # (Manual) PT INR APTT Fibrinogen POC ABG pH 7.273 L ABG pH POC ABG pCO2 POC ABG pO2 ABG pO2 ABG HCO3 ABG O2 Saturation ABG Base Excess ABG Hemoglobin Oxyhemoglobin Sodium 148 H Potassium 5.5 H Chloride Carbon Dioxide BUN 53 H Creatinine 3.3 H D Glucose 106 H POC Glucose Uric Acid Calcium 8.3 L Phosphorus Magnesium Iron TIBC AST ALT Total Creatine Kinase CK-MB (CK-2) Troponin T NT-Pro-B Natriuret Pep Total Protein Albumin Triglycerides HDL Cholesterol Folate Urine WBC (Auto) Urine Creatinine Urine Total Protein Vancomycin Trough 05/05/19 05/05/19 05/05/19 00:05 04:30 05:00 WBC RBC Hgb Hct MCV MCH MCHC RDW Plt Count Lymph % (Auto) [place] % (Auto) Eos % (Auto) Lymph # [place] # Eos # Seg Neutrophils % Seg Neuts % (Manual) Lymphocytes % (Manual) Monocytes % (Manual) Eosinophils % (Manual) Nucleated RBC % Seg Neutrophils # Seg Neutrophils # Man Lymphocytes # (Manual) Monocytes # (Manual) Eosinophils # (Manual) PT INR APTT Fibrinogen POC ABG pH 7.225 L ABG pH POC ABG pCO2 > 70 H POC ABG pO2 ABG pO2 ABG HCO3 ABG O2 Saturation ABG Base Excess ABG Hemoglobin Oxyhemoglobin Sodium 151 H Potassium 5.1 H Chloride Carbon Dioxide BUN 64 H Creatinine 3.5 H Glucose 117 H POC Glucose 141 H Uric Acid Calcium 7.5 L Phosphorus Magnesium Iron TIBC AST 93 H ALT 65 H Total Creatine Kinase CK-MB (CK-2) Troponin T NT-Pro-B Natriuret Pep Total Protein Albumin 2.9 L Triglycerides HDL Cholesterol Folate Urine WBC (Auto) Urine Creatinine Urine Total Protein Vancomycin Trough 05/05/19 05/05/19 05/05/19 05:00 12:02 17:46 WBC 12.0 H RBC Hgb 11.3 L Hct MCV MCH 27 L MCHC 30 L RDW 18.4 H Plt Count Lymph % (Auto) 7.9 L [place] % (Auto) 10.2 H Eos % (Auto) Lymph # 1.0 L [place] # 1.2 H Eos # Seg Neutrophils % 80.8 H Seg Neuts % (Manual) Lymphocytes % (Manual) Monocytes % (Manual) Eosinophils % (Manual) Nucleated RBC % Seg Neutrophils # 9.7 H Seg Neutrophils # Man Lymphocytes # (Manual) Monocytes # (Manual) Eosinophils # (Manual) PT INR APTT Fibrinogen POC ABG pH ABG pH POC ABG pCO2 POC ABG pO2 ABG pO2 ABG HCO3 ABG O2 Saturation ABG Base Excess ABG Hemoglobin Oxyhemoglobin Sodium Potassium Chloride Carbon Dioxide BUN Creatinine Glucose POC Glucose 125 H 112 H Uric Acid Calcium Phosphorus Magnesium Iron TIBC AST ALT Total Creatine Kinase CK-MB (CK-2) Troponin T NT-Pro-B Natriuret Pep Total Protein Albumin Triglycerides HDL Cholesterol Folate Urine WBC (Auto) Urine Creatinine Urine Total Protein Vancomycin Trough 05/05/19 05/06/19 05/06/19 23:42 03:58 04:45 WBC 11.4 H RBC Hgb 10.7 L Hct 34.2 L MCV MCH 27 L MCHC 31 L RDW 16.9 H Plt Count Lymph % (Auto) [place] % (Auto) Eos % (Auto) Lymph # [place] # Eos # Seg Neutrophils % Seg Neuts % (Manual) Lymphocytes % (Manual) Monocytes % (Manual) Eosinophils % (Manual) Nucleated RBC % Seg Neutrophils # Seg Neutrophils # Man Lymphocytes # (Manual) Monocytes # (Manual) Eosinophils # (Manual) PT INR APTT Fibrinogen POC ABG pH ABG pH POC ABG pCO2 62.4 H POC ABG pO2 111 H ABG pO2 ABG HCO3 ABG O2 Saturation ABG Base Excess ABG Hemoglobin Oxyhemoglobin Sodium Potassium Chloride Carbon Dioxide BUN Creatinine Glucose POC Glucose 128 H Uric Acid Calcium Phosphorus Magnesium Iron TIBC AST ALT Total Creatine Kinase CK-MB (CK-2) Troponin T NT-Pro-B Natriuret Pep Total Protein Albumin Triglycerides HDL Cholesterol Folate Urine WBC (Auto) Urine Creatinine Urine Total Protein Vancomycin Trough 05/06/19 05/06/19 05/06/19 04:45 05:33 12:30 WBC RBC Hgb Hct MCV MCH MCHC RDW Plt Count Lymph % (Auto) [place] % (Auto) Eos % (Auto) Lymph # [place] # Eos # Seg Neutrophils % Seg Neuts % (Manual) Lymphocytes % (Manual) Monocytes % (Manual) Eosinophils % (Manual) Nucleated RBC % Seg Neutrophils # Seg Neutrophils # Man Lymphocytes # (Manual) Monocytes # (Manual) Eosinophils # (Manual) PT INR APTT Fibrinogen POC ABG pH ABG pH POC ABG pCO2 POC ABG pO2 ABG pO2 ABG HCO3 ABG O2 Saturation ABG Base Excess ABG Hemoglobin Oxyhemoglobin Sodium 149 H Potassium Chloride Carbon Dioxide 31 H BUN 67 H Creatinine 3.2 H Glucose 125 H POC Glucose 117 H 116 H Uric Acid Calcium 7.5 L Phosphorus Magnesium Iron TIBC AST ALT Total Creatine Kinase CK-MB (CK-2) Troponin T NT-Pro-B Natriuret Pep Total Protein Albumin Triglycerides HDL Cholesterol Folate Urine WBC (Auto) Urine Creatinine Urine Total Protein Vancomycin Trough 05/06/19 05/06/19 05/07/19 18:34 23:16 05:22 WBC RBC Hgb Hct MCV MCH MCHC RDW Plt Count Lymph % (Auto) [place] % (Auto) Eos % (Auto) Lymph # [place] # Eos # Seg Neutrophils % Seg Neuts % (Manual) Lymphocytes % (Manual) Monocytes % (Manual) Eosinophils % (Manual) Nucleated RBC % Seg Neutrophils # Seg Neutrophils # Man Lymphocytes # (Manual) Monocytes # (Manual) Eosinophils # (Manual) PT INR APTT Fibrinogen POC ABG pH ABG pH POC ABG pCO2 POC ABG pO2 ABG pO2 ABG HCO3 ABG O2 Saturation ABG Base Excess ABG Hemoglobin Oxyhemoglobin Sodium Potassium Chloride Carbon Dioxide BUN Creatinine Glucose POC Glucose 128 H 143 H 166 H Uric Acid Calcium Phosphorus Magnesium Iron TIBC AST ALT Total Creatine Kinase CK-MB (CK-2) Troponin T NT-Pro-B Natriuret Pep Total Protein Albumin Triglycerides HDL Cholesterol Folate Urine WBC (Auto) Urine Creatinine Urine Total Protein Vancomycin Trough 05/07/19 05/07/19 05/07/19 06:33 07:03 09:35 WBC RBC Hgb Hct MCV MCH MCHC RDW Plt Count Lymph % (Auto) [place] % (Auto) Eos % (Auto) Lymph # [place] # Eos # Seg Neutrophils % Seg Neuts % (Manual) Lymphocytes % (Manual) Monocytes % (Manual) Eosinophils % (Manual) Nucleated RBC % Seg Neutrophils # Seg Neutrophils # Man Lymphocytes # (Manual) Monocytes # (Manual) Eosinophils # (Manual) PT INR APTT Fibrinogen POC ABG pH 7.263 L 7.288 L ABG pH POC ABG pCO2 POC ABG pO2 51 L 56 L ABG pO2 ABG HCO3 ABG O2 Saturation ABG Base Excess ABG Hemoglobin Oxyhemoglobin Sodium Potassium Chloride Carbon Dioxide BUN 76 H Creatinine 3.2 H Glucose 147 H POC Glucose Uric Acid Calcium 7.9 L Phosphorus Magnesium Iron TIBC AST ALT Total Creatine Kinase CK-MB (CK-2) Troponin T NT-Pro-B Natriuret Pep Total Protein Albumin Triglycerides HDL Cholesterol Folate Urine WBC (Auto) Urine Creatinine Urine Total Protein Vancomycin Trough 05/07/19 05/07/19 05/07/19 09:35 12:17 13:45 WBC 13.4 H RBC Hgb 11.6 L Hct MCV MCH 27 L MCHC 31 L RDW 17.5 H Plt Count Lymph % (Auto) [place] % (Auto) Eos % (Auto) Lymph # [place] # Eos # Seg Neutrophils % Seg Neuts % (Manual) Lymphocytes % (Manual) Monocytes % (Manual) Eosinophils % (Manual) Nucleated RBC % Seg Neutrophils # Seg Neutrophils # Man Lymphocytes # (Manual) Monocytes # (Manual) Eosinophils # (Manual) PT INR APTT Fibrinogen POC ABG pH ABG pH POC ABG pCO2 POC ABG pO2 ABG pO2 ABG HCO3 ABG O2 Saturation ABG Base Excess ABG Hemoglobin Oxyhemoglobin Sodium Potassium Chloride Carbon Dioxide BUN Creatinine Glucose POC Glucose 130 H Uric Acid 18.0 H Calcium Phosphorus Magnesium Iron TIBC AST ALT Total Creatine Kinase CK-MB (CK-2) Troponin T NT-Pro-B Natriuret Pep Total Protein Albumin Triglycerides HDL Cholesterol Folate Urine WBC (Auto) Urine Creatinine Urine Total Protein Vancomycin Trough 05/07/19 05/07/19 05/08/19 17:39 22:40 05:06 WBC RBC Hgb Hct MCV MCH MCHC RDW Plt Count Lymph % (Auto) [place] % (Auto) Eos % (Auto) Lymph # [place] # Eos # Seg Neutrophils % Seg Neuts % (Manual) Lymphocytes % (Manual) Monocytes % (Manual) Eosinophils % (Manual) Nucleated RBC % Seg Neutrophils # Seg Neutrophils # Man Lymphocytes # (Manual) Monocytes # (Manual) Eosinophils # (Manual) PT INR APTT Fibrinogen POC ABG pH ABG pH POC ABG pCO2 POC ABG pO2 ABG pO2 ABG HCO3 ABG O2 Saturation ABG Base Excess ABG Hemoglobin Oxyhemoglobin Sodium Potassium Chloride Carbon Dioxide BUN Creatinine Glucose POC Glucose 116 H 148 H Uric Acid Calcium Phosphorus Magnesium Iron TIBC AST ALT Total Creatine Kinase CK-MB (CK-2) Troponin T NT-Pro-B Natriuret Pep Total Protein Albumin Triglycerides HDL Cholesterol Folate Urine WBC (Auto) Urine Creatinine 292.8 H Urine Total Protein 269 H Vancomycin Trough 05/08/19 05/08/19 05/08/19 05:32 11:28 13:48 WBC RBC Hgb Hct MCV MCH MCHC RDW Plt Count Lymph % (Auto) [place] % (Auto) Eos % (Auto) Lymph # [place] # Eos # Seg Neutrophils % Seg Neuts % (Manual) Lymphocytes % (Manual) Monocytes % (Manual) Eosinophils % (Manual) Nucleated RBC % Seg Neutrophils # Seg Neutrophils # Man Lymphocytes # (Manual) Monocytes # (Manual) Eosinophils # (Manual) PT INR APTT Fibrinogen POC ABG pH ABG pH POC ABG pCO2 45.4 H POC ABG pO2 64 L ABG pO2 ABG HCO3 ABG O2 Saturation ABG Base Excess ABG Hemoglobin Oxyhemoglobin Sodium Potassium Chloride Carbon Dioxide BUN 73 H Creatinine 2.7 H Glucose 127 H POC Glucose 107 H Uric Acid Calcium 7.6 L Phosphorus Magnesium Iron TIBC AST ALT Total Creatine Kinase CK-MB (CK-2) Troponin T NT-Pro-B Natriuret Pep Total Protein Albumin Triglycerides HDL Cholesterol Folate Urine WBC (Auto) Urine Creatinine Urine Total Protein Vancomycin Trough 05/08/19 05/09/19 05/09/19 17:48 04:50 04:53 WBC RBC 3.07 L Hgb 8.5 L D Hct 29.3 L D MCV 96 H MCH MCHC 29 L RDW 18.1 H Plt Count Lymph % (Auto) [place] % (Auto) Eos % (Auto) Lymph # [place] # Eos # Seg Neutrophils % Seg Neuts % (Manual) Lymphocytes % (Manual) Monocytes % (Manual) Eosinophils % (Manual) Nucleated RBC % Seg Neutrophils # Seg Neutrophils # Man Lymphocytes # (Manual) Monocytes # (Manual) Eosinophils # (Manual) PT INR APTT Fibrinogen POC ABG pH 7.316 L ABG pH POC ABG pCO2 66.0 H POC ABG pO2 69 L ABG pO2 ABG HCO3 ABG O2 Saturation ABG Base Excess ABG Hemoglobin Oxyhemoglobin Sodium Potassium Chloride Carbon Dioxide BUN Creatinine Glucose POC Glucose 155 H Uric Acid Calcium Phosphorus Magnesium Iron TIBC AST ALT Total Creatine Kinase CK-MB (CK-2) Troponin T NT-Pro-B Natriuret Pep Total Protein Albumin Triglycerides HDL Cholesterol Folate Urine WBC (Auto) Urine Creatinine Urine Total Protein Vancomycin Trough 05/09/19 05/09/19 05/09/19 05:46 07:24 12:10 WBC RBC Hgb Hct MCV MCH MCHC RDW Plt Count Lymph % (Auto) [place] % (Auto) Eos % (Auto) Lymph # [place] # Eos # Seg Neutrophils % Seg Neuts % (Manual) Lymphocytes % (Manual) Monocytes % (Manual) Eosinophils % (Manual) Nucleated RBC % Seg Neutrophils # Seg Neutrophils # Man Lymphocytes # (Manual) Monocytes # (Manual) Eosinophils # (Manual) PT INR APTT Fibrinogen POC ABG pH ABG pH POC ABG pCO2 POC ABG pO2 ABG pO2 ABG HCO3 ABG O2 Saturation ABG Base Excess ABG Hemoglobin Oxyhemoglobin Sodium Potassium Chloride Carbon Dioxide BUN 73 H Creatinine 2.4 H Glucose 153 H POC Glucose 123 H 148 H Uric Acid Calcium 8.2 L Phosphorus Magnesium Iron TIBC AST 45 H ALT Total Creatine Kinase CK-MB (CK-2) Troponin T NT-Pro-B Natriuret Pep Total Protein 6.0 L Albumin 1.9 L Triglycerides HDL Cholesterol Folate Urine WBC (Auto) Urine Creatinine Urine Total Protein Vancomycin Trough 05/09/19 05/09/19 05/10/19 18:23 23:26 04:52 WBC RBC Hgb Hct MCV MCH MCHC RDW Plt Count Lymph % (Auto) [place] % (Auto) Eos % (Auto) Lymph # [place] # Eos # Seg Neutrophils % Seg Neuts % (Manual) Lymphocytes % (Manual) Monocytes % (Manual) Eosinophils % (Manual) Nucleated RBC % Seg Neutrophils # Seg Neutrophils # Man Lymphocytes # (Manual) Monocytes # (Manual) Eosinophils # (Manual) PT INR APTT Fibrinogen POC ABG pH 7.305 L ABG pH POC ABG pCO2 62.6 H POC ABG pO2 ABG pO2 ABG HCO3 ABG O2 Saturation ABG Base Excess ABG Hemoglobin Oxyhemoglobin Sodium Potassium Chloride Carbon Dioxide BUN Creatinine Glucose POC Glucose 147 H 121 H Uric Acid Calcium Phosphorus Magnesium Iron TIBC AST ALT Total Creatine Kinase CK-MB (CK-2) Troponin T NT-Pro-B Natriuret Pep Total Protein Albumin Triglycerides HDL Cholesterol Folate Urine WBC (Auto) Urine Creatinine Urine Total Protein Vancomycin Trough 05/10/19 05/10/19 05/10/19 05:00 05:00 05:50 WBC RBC Hgb 10.3 L Hct 33.7 L MCV MCH 27 L MCHC 31 L RDW 17.0 H Plt Count Lymph % (Auto) [place] % (Auto) Eos % (Auto) Lymph # [place] # Eos # Seg Neutrophils % Seg Neuts % (Manual) Lymphocytes % (Manual) Monocytes % (Manual) Eosinophils % (Manual) Nucleated RBC % Seg Neutrophils # Seg Neutrophils # Man Lymphocytes # (Manual) Monocytes # (Manual) Eosinophils # (Manual) PT INR APTT Fibrinogen POC ABG pH ABG pH POC ABG pCO2 POC ABG pO2 ABG pO2 ABG HCO3 ABG O2 Saturation ABG Base Excess ABG Hemoglobin Oxyhemoglobin Sodium 147 H Potassium Chloride Carbon Dioxide BUN 70 H Creatinine 2.6 H Glucose 155 H POC Glucose 158 H Uric Acid Calcium 8.2 L Phosphorus Magnesium Iron TIBC AST ALT Total Creatine Kinase CK-MB (CK-2) Troponin T NT-Pro-B Natriuret Pep Total Protein 6.1 L Albumin 2.5 L Triglycerides HDL Cholesterol Folate Urine WBC (Auto) Urine Creatinine Urine Total Protein Vancomycin Trough 05/10/19 05/11/19 05/11/19 13:14 07:26 11:40 WBC RBC Hgb Hct MCV MCH MCHC RDW Plt Count Lymph % (Auto) [place] % (Auto) Eos % (Auto) Lymph # [place] # Eos # Seg Neutrophils % Seg Neuts % (Manual) Lymphocytes % (Manual) Monocytes % (Manual) Eosinophils % (Manual) Nucleated RBC % Seg Neutrophils # Seg Neutrophils # Man Lymphocytes # (Manual) Monocytes # (Manual) Eosinophils # (Manual) PT INR APTT Fibrinogen POC ABG pH ABG pH POC ABG pCO2 48.0 H POC ABG pO2 58 L ABG pO2 ABG HCO3 ABG O2 Saturation ABG Base Excess ABG Hemoglobin Oxyhemoglobin Sodium 147 H Potassium Chloride 107.2 H Carbon Dioxide BUN 67 H Creatinine 2.6 H Glucose 121 H POC Glucose 159 H Uric Acid Calcium Phosphorus Magnesium Iron TIBC AST ALT Total Creatine Kinase CK-MB (CK-2) Troponin T NT-Pro-B Natriuret Pep Total Protein Albumin Triglycerides HDL Cholesterol Folate Urine WBC (Auto) Urine Creatinine Urine Total Protein Vancomycin Trough 05/11/19 05/11/19 05/12/19 18:13 23:46 04:40 WBC RBC Hgb Hct MCV MCH MCHC RDW Plt Count Lymph % (Auto) [place] % (Auto) Eos % (Auto) Lymph # [place] # Eos # Seg Neutrophils % Seg Neuts % (Manual) Lymphocytes % (Manual) Monocytes % (Manual) Eosinophils % (Manual) Nucleated RBC % Seg Neutrophils # Seg Neutrophils # Man Lymphocytes # (Manual) Monocytes # (Manual) Eosinophils # (Manual) PT INR APTT Fibrinogen POC ABG pH ABG pH 7.264 L POC ABG pCO2 POC ABG pO2 ABG pO2 66.8 L ABG HCO3 31.0 H ABG O2 Saturation 92.0 L ABG Base Excess ABG Hemoglobin 10.3 L Oxyhemoglobin 90.1 L Sodium Potassium Chloride Carbon Dioxide BUN Creatinine Glucose POC Glucose 120 H 121 H Uric Acid Calcium Phosphorus Magnesium Iron TIBC AST ALT Total Creatine Kinase CK-MB (CK-2) Troponin T NT-Pro-B Natriuret Pep Total Protein Albumin Triglycerides HDL Cholesterol Folate Urine WBC (Auto) Urine Creatinine Urine Total Protein Vancomycin Trough 05/12/19 05/12/19 05/12/19 04:45 04:45 11:14 WBC RBC Hgb 10.2 L Hct 32.4 L MCV MCH MCHC 31 L RDW 17.2 H Plt Count Lymph % (Auto) [place] % (Auto) Eos % (Auto) Lymph # [place] # Eos # Seg Neutrophils % Seg Neuts % (Manual) Lymphocytes % (Manual) Monocytes % (Manual) Eosinophils % (Manual) Nucleated RBC % Seg Neutrophils # Seg Neutrophils # Man Lymphocytes # (Manual) Monocytes # (Manual) Eosinophils # (Manual) PT INR APTT Fibrinogen POC ABG pH 7.284 L ABG pH POC ABG pCO2 67.8 H POC ABG pO2 ABG pO2 ABG HCO3 ABG O2 Saturation ABG Base Excess ABG Hemoglobin Oxyhemoglobin Sodium Potassium Chloride Carbon Dioxide BUN 63 H Creatinine 2.4 H Glucose 110 H POC Glucose Uric Acid Calcium Phosphorus Magnesium Iron TIBC AST ALT Total Creatine Kinase CK-MB (CK-2) Troponin T NT-Pro-B Natriuret Pep Total Protein Albumin Triglycerides HDL Cholesterol Folate Urine WBC (Auto) Urine Creatinine Urine Total Protein Vancomycin Trough 05/12/19 05/12/19 05/13/19 11:44 23:11 04:30 WBC RBC Hgb Hct MCV MCH MCHC RDW Plt Count Lymph % (Auto) [place] % (Auto) Eos % (Auto) Lymph # [place] # Eos # Seg Neutrophils % Seg Neuts % (Manual) Lymphocytes % (Manual) Monocytes % (Manual) Eosinophils % (Manual) Nucleated RBC % Seg Neutrophils # Seg Neutrophils # Man Lymphocytes # (Manual) Monocytes # (Manual) Eosinophils # (Manual) PT INR APTT Fibrinogen POC ABG pH ABG pH 7.288 L POC ABG pCO2 POC ABG pO2 ABG pO2 109.7 H ABG HCO3 30.9 H ABG O2 Saturation ABG Base Excess 3.2 H ABG Hemoglobin 9.6 L Oxyhemoglobin Sodium Potassium Chloride Carbon Dioxide BUN Creatinine Glucose POC Glucose 126 H 147 H Uric Acid Calcium Phosphorus Magnesium Iron TIBC AST ALT Total Creatine Kinase CK-MB (CK-2) Troponin T NT-Pro-B Natriuret Pep Total Protein Albumin Triglycerides HDL Cholesterol Folate Urine WBC (Auto) Urine Creatinine Urine Total Protein Vancomycin Trough 05/13/19 05/13/19 05/14/19 06:27 11:58 04:00 WBC RBC 3.16 L Hgb 9.3 L Hct 27.9 L MCV MCH MCHC RDW 17.1 H Plt Count Lymph % (Auto) [place] % (Auto) Eos % (Auto) Lymph # [place] # Eos # Seg Neutrophils % Seg Neuts % (Manual) Lymphocytes % (Manual) Monocytes % (Manual) Eosinophils % (Manual) Nucleated RBC % Seg Neutrophils # Seg Neutrophils # Man Lymphocytes # (Manual) Monocytes # (Manual) Eosinophils # (Manual) PT INR APTT Fibrinogen POC ABG pH ABG pH POC ABG pCO2 POC ABG pO2 ABG pO2 ABG HCO3 ABG O2 Saturation ABG Base Excess ABG Hemoglobin Oxyhemoglobin Sodium Potassium Chloride Carbon Dioxide BUN Creatinine Glucose POC Glucose 113 H 130 H Uric Acid Calcium Phosphorus Magnesium Iron TIBC AST ALT Total Creatine Kinase CK-MB (CK-2) Troponin T NT-Pro-B Natriuret Pep Total Protein Albumin Triglycerides HDL Cholesterol Folate Urine WBC (Auto) Urine Creatinine Urine Total Protein Vancomycin Trough 05/14/19 05/14/19 05/14/19 04:00 04:34 05:32 WBC RBC Hgb Hct MCV MCH MCHC RDW Plt Count Lymph % (Auto) [place] % (Auto) Eos % (Auto) Lymph # [place] # Eos # Seg Neutrophils % Seg Neuts % (Manual) Lymphocytes % (Manual) Monocytes % (Manual) Eosinophils % (Manual) Nucleated RBC % Seg Neutrophils # Seg Neutrophils # Man Lymphocytes # (Manual) Monocytes # (Manual) Eosinophils # (Manual) PT INR APTT Fibrinogen POC ABG pH 7.328 L ABG pH POC ABG pCO2 61.7 H POC ABG pO2 ABG pO2 ABG HCO3 ABG O2 Saturation ABG Base Excess ABG Hemoglobin Oxyhemoglobin Sodium 135 L D Potassium Chloride Carbon Dioxide BUN 57 H Creatinine 2.2 H Glucose 115 H POC Glucose 115 H Uric Acid Calcium 8.1 L Phosphorus Magnesium Iron TIBC AST ALT Total Creatine Kinase CK-MB (CK-2) Troponin T NT-Pro-B Natriuret Pep Total Protein Albumin Triglycerides HDL Cholesterol Folate Urine WBC (Auto) Urine Creatinine Urine Total Protein Vancomycin Trough 05/14/19 05/15/19 05/15/19 12:11 05:10 05:24 WBC RBC Hgb Hct MCV MCH MCHC RDW Plt Count Lymph % (Auto) [place] % (Auto) Eos % (Auto) Lymph # [place] # Eos # Seg Neutrophils % Seg Neuts % (Manual) Lymphocytes % (Manual) Monocytes % (Manual) Eosinophils % (Manual) Nucleated RBC % Seg Neutrophils # Seg Neutrophils # Man Lymphocytes # (Manual) Monocytes # (Manual) Eosinophils # (Manual) PT INR APTT Fibrinogen POC ABG pH ABG pH 7.342 L POC ABG pCO2 POC ABG pO2 ABG pO2 79.1 L ABG HCO3 28.2 H ABG O2 Saturation ABG Base Excess ABG Hemoglobin 7.0 L Oxyhemoglobin 94.4 L Sodium Potassium Chloride Carbon Dioxide BUN Creatinine Glucose POC Glucose 110 H 116 H Uric Acid Calcium Phosphorus Magnesium Iron TIBC AST ALT Total Creatine Kinase CK-MB (CK-2) Troponin T NT-Pro-B Natriuret Pep Total Protein Albumin Triglycerides HDL Cholesterol Folate Urine WBC (Auto) Urine Creatinine Urine Total Protein Vancomycin Trough 05/15/19 05/15/19 05/16/19 09:00 18:12 04:50 WBC RBC Hgb Hct MCV MCH MCHC RDW Plt Count Lymph % (Auto) [place] % (Auto) Eos % (Auto) Lymph # [place] # Eos # Seg Neutrophils % Seg Neuts % (Manual) Lymphocytes % (Manual) Monocytes % (Manual) Eosinophils % (Manual) Nucleated RBC % Seg Neutrophils # Seg Neutrophils # Man Lymphocytes # (Manual) Monocytes # (Manual) Eosinophils # (Manual) PT INR APTT Fibrinogen POC ABG pH ABG pH 7.250 L POC ABG pCO2 POC ABG pO2 ABG pO2 76.4 L ABG HCO3 ABG O2 Saturation 94.6 L ABG Base Excess -3.1 L ABG Hemoglobin 9.7 L Oxyhemoglobin 92.4 L Sodium Potassium Chloride Carbon Dioxide BUN Creatinine Glucose POC Glucose 110 H Uric Acid Calcium Phosphorus Magnesium Iron TIBC AST ALT Total Creatine Kinase CK-MB (CK-2) Troponin T NT-Pro-B Natriuret Pep Total Protein Albumin Triglycerides HDL Cholesterol Folate Urine WBC (Auto) Urine Creatinine Urine Total Protein Vancomycin Trough 20.5 H 05/16/19 05/16/19 05/17/19 05:50 05:50 04:20 WBC RBC 3.36 L 3.44 L Hgb 9.4 L 9.3 L Hct 29.1 L 29.7 L MCV MCH 27 L MCHC 31 L RDW 17.6 H 17.6 H Plt Count Lymph % (Auto) [place] % (Auto) Eos % (Auto) Lymph # [place] # Eos # Seg Neutrophils % Seg Neuts % (Manual) 77.0 H Lymphocytes % (Manual) 5.0 L Monocytes % (Manual) Eosinophils % (Manual) 10.0 H Nucleated RBC % Seg Neutrophils # Seg Neutrophils # Man Lymphocytes # (Manual) 0.5 L Monocytes # (Manual) Eosinophils # (Manual) 0.9 H PT INR APTT Fibrinogen POC ABG pH ABG pH POC ABG pCO2 POC ABG pO2 ABG pO2 ABG HCO3 ABG O2 Saturation ABG Base Excess ABG Hemoglobin Oxyhemoglobin Sodium Potassium Chloride Carbon Dioxide BUN 83 H Creatinine 4.4 H D Glucose 118 H POC Glucose Uric Acid Calcium Phosphorus Magnesium Iron TIBC AST ALT Total Creatine Kinase CK-MB (CK-2) Troponin T NT-Pro-B Natriuret Pep Total Protein Albumin Triglycerides HDL Cholesterol Folate Urine WBC (Auto) Urine Creatinine Urine Total Protein Vancomycin Trough 05/17/19 05/17/19 05/18/19 04:30 Unknown 01:50 WBC RBC 3.49 L Hgb 9.4 L Hct 30.0 L MCV MCH 27 L MCHC 31 L RDW 17.8 H Plt Count Lymph % (Auto) 7.9 L [place] % (Auto) 15.4 H Eos % (Auto) 6.3 H Lymph # 0.7 L [place] # 1.4 H Eos # 0.6 H Seg Neutrophils % 70.2 H Seg Neuts % (Manual) Lymphocytes % (Manual) Monocytes % (Manual) Eosinophils % (Manual) Nucleated RBC % Seg Neutrophils # Seg Neutrophils # Man Lymphocytes # (Manual) Monocytes # (Manual) Eosinophils # (Manual) PT INR APTT Fibrinogen POC ABG pH ABG pH 7.272 L POC ABG pCO2 POC ABG pO2 ABG pO2 75.7 L ABG HCO3 ABG O2 Saturation 93.8 L ABG Base Excess -3.0 L ABG Hemoglobin 7.8 L Oxyhemoglobin 91.6 L Sodium Potassium 5.2 H Chloride Carbon Dioxide BUN 96 H Creatinine 5.7 H Glucose 112 H POC Glucose Uric Acid Calcium Phosphorus Magnesium Iron TIBC AST ALT Total Creatine Kinase CK-MB (CK-2) Troponin T NT-Pro-B Natriuret Pep Total Protein Albumin Triglycerides 173 H HDL Cholesterol Folate Urine WBC (Auto) Urine Creatinine Urine Total Protein Vancomycin Trough 05/18/19 05/18/19 05/18/19 01:50 04:41 05:24 WBC RBC Hgb Hct MCV MCH MCHC RDW Plt Count Lymph % (Auto) [place] % (Auto) Eos % (Auto) Lymph # [place] # Eos # Seg Neutrophils % Seg Neuts % (Manual) Lymphocytes % (Manual) Monocytes % (Manual) Eosinophils % (Manual) Nucleated RBC % Seg Neutrophils # Seg Neutrophils # Man Lymphocytes # (Manual) Monocytes # (Manual) Eosinophils # (Manual) PT INR APTT Fibrinogen POC ABG pH 7.260 L ABG pH POC ABG pCO2 54.9 H POC ABG pO2 ABG pO2 ABG HCO3 ABG O2 Saturation ABG Base Excess ABG Hemoglobin Oxyhemoglobin Sodium Potassium 5.6 H Chloride Carbon Dioxide BUN 104 H Creatinine 6.6 H Glucose 107 H POC Glucose 106 H Uric Acid Calcium Phosphorus Magnesium Iron TIBC AST ALT Total Creatine Kinase CK-MB (CK-2) Troponin T NT-Pro-B Natriuret Pep Total Protein Albumin Triglycerides HDL Cholesterol Folate Urine WBC (Auto) Urine Creatinine Urine Total Protein Vancomycin Trough 05/18/19 05/18/19 05/19/19 11:34 23:26 04:06 WBC RBC 3.22 L Hgb 8.8 L Hct 27.3 L MCV MCH 27 L MCHC RDW 17.5 H Plt Count Lymph % (Auto) [place] % (Auto) Eos % (Auto) Lymph # [place] # Eos # Seg Neutrophils % Seg Neuts % (Manual) 74.0 H Lymphocytes % (Manual) 4.0 L Monocytes % (Manual) 11.0 H Eosinophils % (Manual) 7.0 H Nucleated RBC % 1.0 H Seg Neutrophils # Seg Neutrophils # Man Lymphocytes # (Manual) 0.3 L Monocytes # (Manual) 0.9 H Eosinophils # (Manual) 0.6 H PT INR APTT Fibrinogen POC ABG pH ABG pH POC ABG pCO2 POC ABG pO2 ABG pO2 ABG HCO3 ABG O2 Saturation ABG Base Excess ABG Hemoglobin Oxyhemoglobin Sodium Potassium Chloride Carbon Dioxide BUN Creatinine Glucose POC Glucose 152 H 112 H Uric Acid Calcium Phosphorus Magnesium Iron TIBC AST ALT Total Creatine Kinase CK-MB (CK-2) Troponin T NT-Pro-B Natriuret Pep Total Protein Albumin Triglycerides HDL Cholesterol Folate Urine WBC (Auto) Urine Creatinine Urine Total Protein Vancomycin Trough 05/19/19 05/19/19 05/20/19 04:06 06:00 04:00 WBC RBC 3.40 L Hgb 9.2 L Hct 28.6 L MCV MCH 27 L MCHC RDW 17.6 H Plt Count Lymph % (Auto) [place] % (Auto) Eos % (Auto) Lymph # [place] # Eos # Seg Neutrophils % Seg Neuts % (Manual) Lymphocytes % (Manual) 11.0 L Monocytes % (Manual) Eosinophils % (Manual) 14.0 H Nucleated RBC % Seg Neutrophils # Seg Neutrophils # Man Lymphocytes # (Manual) 1.1 L Monocytes # (Manual) Eosinophils # (Manual) 1.4 H PT INR APTT Fibrinogen POC ABG pH ABG pH 7.315 L POC ABG pCO2 POC ABG pO2 ABG pO2 ABG HCO3 ABG O2 Saturation ABG Base Excess ABG Hemoglobin 6.7 L Oxyhemoglobin 94.1 L Sodium Potassium 5.2 H Chloride Carbon Dioxide 21 L BUN 110 H Creatinine 7.2 H Glucose POC Glucose Uric Acid Calcium 8.3 L Phosphorus Magnesium Iron TIBC AST ALT Total Creatine Kinase CK-MB (CK-2) Troponin T NT-Pro-B Natriuret Pep Total Protein Albumin Triglycerides HDL Cholesterol Folate Urine WBC (Auto) Urine Creatinine Urine Total Protein Vancomycin Trough 05/20/19 05/20/19 05/20/19 04:00 05:48 12:00 WBC RBC Hgb Hct MCV MCH MCHC RDW Plt Count Lymph % (Auto) [place] % (Auto) Eos % (Auto) Lymph # [place] # Eos # Seg Neutrophils % Seg Neuts % (Manual) Lymphocytes % (Manual) Monocytes % (Manual) Eosinophils % (Manual) Nucleated RBC % Seg Neutrophils # Seg Neutrophils # Man Lymphocytes # (Manual) Monocytes # (Manual) Eosinophils # (Manual) PT INR APTT Fibrinogen POC ABG pH ABG pH 7.281 L POC ABG pCO2 POC ABG pO2 ABG pO2 78.7 L ABG HCO3 ABG O2 Saturation 94.5 L ABG Base Excess -3.0 L ABG Hemoglobin 9.9 L Oxyhemoglobin 92.5 L Sodium 136 L Potassium 5.7 H Chloride 96.3 L Carbon Dioxide BUN 125 H Creatinine 8.3 H Glucose 106 H POC Glucose Uric Acid Calcium Phosphorus Magnesium Iron TIBC AST ALT Total Creatine Kinase CK-MB (CK-2) Troponin T NT-Pro-B Natriuret Pep Total Protein Albumin Triglycerides HDL Cholesterol Folate Urine WBC (Auto) 26.0 H Urine Creatinine Urine Total Protein Vancomycin Trough 05/21/19 05/21/19 05/21/19 04:33 05:20 Unknown WBC RBC 3.38 L Hgb 9.1 L Hct 28.5 L MCV MCH 27 L MCHC RDW 17.4 H Plt Count Lymph % (Auto) [place] % (Auto) Eos % (Auto) Lymph # [place] # Eos # Seg Neutrophils % Seg Neuts % (Manual) 71.0 H Lymphocytes % (Manual) 1.0 L Monocytes % (Manual) 11.0 H Eosinophils % (Manual) 6.0 H Nucleated RBC % Seg Neutrophils # Seg Neutrophils # Man Lymphocytes # (Manual) 0.1 L Monocytes # (Manual) 1.0 H Eosinophils # (Manual) 0.6 H PT INR APTT Fibrinogen POC ABG pH 7.315 L ABG pH POC ABG pCO2 57.8 H POC ABG pO2 68 L ABG pO2 ABG HCO3 ABG O2 Saturation ABG Base Excess ABG Hemoglobin Oxyhemoglobin Sodium Potassium Chloride 96.3 L Carbon Dioxide BUN 102 H Creatinine 7.0 H Glucose 103 H POC Glucose Uric Acid Calcium Phosphorus Magnesium Iron TIBC AST ALT Total Creatine Kinase CK-MB (CK-2) Troponin T NT-Pro-B Natriuret Pep Total Protein Albumin Triglycerides HDL Cholesterol Folate Urine WBC (Auto) Urine Creatinine Urine Total Protein Vancomycin Trough 05/22/19 05/22/19 05/22/19 03:54 06:25 06:25 WBC RBC 3.22 L Hgb 8.6 L Hct 27.0 L MCV MCH 27 L MCHC RDW 17.5 H Plt Count Lymph % (Auto) [place] % (Auto) 16.2 H Eos % (Auto) 10.8 H Lymph # [place] # 1.3 H Eos # 0.9 H Seg Neutrophils % Seg Neuts % (Manual) Lymphocytes % (Manual) 10.0 L Monocytes % (Manual) 13.0 H Eosinophils % (Manual) 8.0 H Nucleated RBC % Seg Neutrophils # Seg Neutrophils # Man Lymphocytes # (Manual) 0.9 L Monocytes # (Manual) 1.1 H Eosinophils # (Manual) 0.7 H PT INR APTT Fibrinogen POC ABG pH 7.313 L ABG pH POC ABG pCO2 55.0 H POC ABG pO2 ABG pO2 ABG HCO3 ABG O2 Saturation ABG Base Excess ABG Hemoglobin Oxyhemoglobin Sodium 135 L Potassium Chloride 94.3 L Carbon Dioxide BUN 117 H Creatinine 7.8 H Glucose POC Glucose Uric Acid Calcium 8.2 L Phosphorus Magnesium Iron TIBC AST ALT Total Creatine Kinase CK-MB (CK-2) Troponin T NT-Pro-B Natriuret Pep Total Protein Albumin Triglycerides HDL Cholesterol Folate Urine WBC (Auto) Urine Creatinine Urine Total Protein Vancomycin Trough 05/23/19 05/24/19 05/24/19 05:21 05:00 05:00 WBC RBC 3.18 L Hgb 8.5 L Hct 26.7 L MCV MCH 27 L MCHC RDW 17.9 H Plt Count Lymph % (Auto) [place] % (Auto) Eos % (Auto) Lymph # [place] # Eos # Seg Neutrophils % Seg Neuts % (Manual) Lymphocytes % (Manual) Monocytes % (Manual) Eosinophils % (Manual) Nucleated RBC % Seg Neutrophils # Seg Neutrophils # Man Lymphocytes # (Manual) Monocytes # (Manual) Eosinophils # (Manual) PT INR APTT Fibrinogen POC ABG pH ABG pH POC ABG pCO2 49.7 H POC ABG pO2 73 L ABG pO2 ABG HCO3 ABG O2 Saturation ABG Base Excess ABG Hemoglobin Oxyhemoglobin Sodium Potassium Chloride 95.7 L Carbon Dioxide BUN 97 H Creatinine 6.5 H Glucose POC Glucose Uric Acid Calcium 8.0 L Phosphorus Magnesium Iron TIBC AST ALT Total Creatine Kinase CK-MB (CK-2) Troponin T NT-Pro-B Natriuret Pep Total Protein Albumin Triglycerides HDL Cholesterol Folate Urine WBC (Auto) Urine Creatinine Urine Total Protein Vancomycin Trough 05/24/19 05/25/19 05/25/19 06:17 04:22 15:45 WBC RBC 2.98 L Hgb 8.1 L Hct 24.9 L MCV MCH 27 L MCHC RDW 17.8 H Plt Count Lymph % (Auto) [place] % (Auto) Eos % (Auto) Lymph # [place] # Eos # Seg Neutrophils % Seg Neuts % (Manual) Lymphocytes % (Manual) Monocytes % (Manual) Eosinophils % (Manual) Nucleated RBC % Seg Neutrophils # Seg Neutrophils # Man Lymphocytes # (Manual) Monocytes # (Manual) Eosinophils # (Manual) PT INR APTT Fibrinogen POC ABG pH 7.330 L 7.313 L ABG pH POC ABG pCO2 52.5 H 51.1 H POC ABG pO2 77 L ABG pO2 ABG HCO3 ABG O2 Saturation ABG Base Excess ABG Hemoglobin Oxyhemoglobin Sodium Potassium Chloride Carbon Dioxide BUN Creatinine Glucose POC Glucose Uric Acid Calcium Phosphorus Magnesium Iron TIBC AST ALT Total Creatine Kinase CK-MB (CK-2) Troponin T NT-Pro-B Natriuret Pep Total Protein Albumin Triglycerides HDL Cholesterol Folate Urine WBC (Auto) Urine Creatinine Urine Total Protein Vancomycin Trough 05/25/19 05/26/19 05/26/19 15:45 04:13 05:00 WBC RBC 3.10 L Hgb 8.4 L Hct 26.0 L MCV MCH 27 L MCHC RDW 17.4 H Plt Count Lymph % (Auto) [place] % (Auto) Eos % (Auto) Lymph # [place] # Eos # Seg Neutrophils % Seg Neuts % (Manual) Lymphocytes % (Manual) Monocytes % (Manual) Eosinophils % (Manual) Nucleated RBC % Seg Neutrophils # Seg Neutrophils # Man Lymphocytes # (Manual) Monocytes # (Manual) Eosinophils # (Manual) PT INR APTT Fibrinogen POC ABG pH 7.295 L ABG pH POC ABG pCO2 56.5 H POC ABG pO2 63 L ABG pO2 ABG HCO3 ABG O2 Saturation ABG Base Excess ABG Hemoglobin Oxyhemoglobin Sodium 136 L Potassium Chloride 96.8 L Carbon Dioxide BUN 83 H Creatinine 5.9 H Glucose POC Glucose Uric Acid Calcium 7.6 L Phosphorus Magnesium Iron TIBC AST ALT Total Creatine Kinase CK-MB (CK-2) Troponin T NT-Pro-B Natriuret Pep Total Protein Albumin Triglycerides HDL Cholesterol Folate Urine WBC (Auto) Urine Creatinine Urine Total Protein Vancomycin Trough 05/26/19 05/27/19 05/28/19 05:00 04:48 04:47 WBC RBC Hgb Hct MCV MCH MCHC RDW Plt Count Lymph % (Auto) [place] % (Auto) Eos % (Auto) Lymph # [place] # Eos # Seg Neutrophils % Seg Neuts % (Manual) Lymphocytes % (Manual) Monocytes % (Manual) Eosinophils % (Manual) Nucleated RBC % Seg Neutrophils # Seg Neutrophils # Man Lymphocytes # (Manual) Monocytes # (Manual) Eosinophils # (Manual) PT INR APTT Fibrinogen POC ABG pH 7.323 L ABG pH 7.284 L POC ABG pCO2 56.2 H POC ABG pO2 ABG pO2 71.6 L ABG HCO3 ABG O2 Saturation 92.0 L ABG Base Excess ABG Hemoglobin 7.7 L Oxyhemoglobin 89.9 L Sodium 136 L Potassium Chloride 95.3 L Carbon Dioxide BUN 96 H Creatinine 6.5 H Glucose 108 H POC Glucose Uric Acid Calcium 7.6 L Phosphorus Magnesium Iron TIBC AST ALT Total Creatine Kinase CK-MB (CK-2) Troponin T NT-Pro-B Natriuret Pep Total Protein Albumin Triglycerides HDL Cholesterol Folate Urine WBC (Auto) Urine Creatinine Urine Total Protein Vancomycin Trough 05/28/19 05/29/19 05/29/19 12:30 12:47 23:44 WBC RBC Hgb Hct MCV MCH MCHC RDW Plt Count Lymph % (Auto) [place] % (Auto) Eos % (Auto) Lymph # [place] # Eos # Seg Neutrophils % Seg Neuts % (Manual) Lymphocytes % (Manual) Monocytes % (Manual) Eosinophils % (Manual) Nucleated RBC % Seg Neutrophils # Seg Neutrophils # Man Lymphocytes # (Manual) Monocytes # (Manual) Eosinophils # (Manual) PT INR APTT Fibrinogen POC ABG pH ABG pH POC ABG pCO2 POC ABG pO2 ABG pO2 ABG HCO3 ABG O2 Saturation ABG Base Excess ABG Hemoglobin Oxyhemoglobin Sodium 135 L Potassium Chloride 95.3 L Carbon Dioxide BUN 82 H Creatinine 6.0 H Glucose POC Glucose 136 H 159 H Uric Acid Calcium 7.5 L Phosphorus Magnesium Iron TIBC AST ALT Total Creatine Kinase CK-MB (CK-2) Troponin T NT-Pro-B Natriuret Pep Total Protein Albumin Triglycerides HDL Cholesterol Folate Urine WBC (Auto) Urine Creatinine Urine Total Protein Vancomycin Trough 05/30/19 05/30/19 05/30/19 04:30 05:38 12:00 WBC RBC 3.01 L Hgb 8.2 L Hct 25.3 L MCV MCH 27 L MCHC RDW 17.5 H Plt Count Lymph % (Auto) [place] % (Auto) Eos % (Auto) Lymph # [place] # Eos # Seg Neutrophils % Seg Neuts % (Manual) 80.0 H Lymphocytes % (Manual) 10.0 L Monocytes % (Manual) Eosinophils % (Manual) Nucleated RBC % Seg Neutrophils # Seg Neutrophils # Man 8.0 H Lymphocytes # (Manual) 1.0 L Monocytes # (Manual) Eosinophils # (Manual) PT INR APTT Fibrinogen POC ABG pH ABG pH POC ABG pCO2 POC ABG pO2 73 L ABG pO2 ABG HCO3 ABG O2 Saturation ABG Base Excess ABG Hemoglobin Oxyhemoglobin Sodium Potassium Chloride Carbon Dioxide BUN Creatinine Glucose POC Glucose 166 H Uric Acid Calcium Phosphorus Magnesium Iron TIBC AST ALT Total Creatine Kinase CK-MB (CK-2) Troponin T NT-Pro-B Natriuret Pep Total Protein Albumin Triglycerides HDL Cholesterol Folate Urine WBC (Auto) Urine Creatinine Urine Total Protein Vancomycin Trough 05/30/19 05/31/19 05/31/19 23:45 04:07 13:04 WBC 14.3 H RBC 2.88 L Hgb 7.7 L Hct 23.9 L MCV 83 L MCH 27 L MCHC RDW 17.8 H Plt Count Lymph % (Auto) [place] % (Auto) Eos % (Auto) Lymph # [place] # Eos # Seg Neutrophils % Seg Neuts % (Manual) 83.0 H Lymphocytes % (Manual) 11.0 L Monocytes % (Manual) Eosinophils % (Manual) Nucleated RBC % Seg Neutrophils # Seg Neutrophils # Man 11.9 H Lymphocytes # (Manual) Monocytes # (Manual) 0.9 H Eosinophils # (Manual) PT INR APTT Fibrinogen POC ABG pH ABG pH POC ABG pCO2 47.4 H POC ABG pO2 ABG pO2 ABG HCO3 ABG O2 Saturation ABG Base Excess ABG Hemoglobin Oxyhemoglobin Sodium Potassium Chloride Carbon Dioxide BUN Creatinine Glucose POC Glucose 209 H Uric Acid Calcium Phosphorus Magnesium Iron TIBC AST ALT Total Creatine Kinase CK-MB (CK-2) Troponin T NT-Pro-B Natriuret Pep Total Protein Albumin Triglycerides HDL Cholesterol Folate Urine WBC (Auto) Urine Creatinine Urine Total Protein Vancomycin Trough 05/31/19 05/31/19 06/01/19 13:04 16:42 00:15 WBC RBC Hgb Hct MCV MCH MCHC RDW Plt Count Lymph % (Auto) [place] % (Auto) Eos % (Auto) Lymph # [place] # Eos # Seg Neutrophils % Seg Neuts % (Manual) Lymphocytes % (Manual) Monocytes % (Manual) Eosinophils % (Manual) Nucleated RBC % Seg Neutrophils # Seg Neutrophils # Man Lymphocytes # (Manual) Monocytes # (Manual) Eosinophils # (Manual) PT INR APTT Fibrinogen POC ABG pH ABG pH POC ABG pCO2 POC ABG pO2 ABG pO2 ABG HCO3 ABG O2 Saturation ABG Base Excess ABG Hemoglobin Oxyhemoglobin Sodium 129 L Potassium Chloride 88.6 L Carbon Dioxide 19 L BUN 117 H Creatinine 6.7 H Glucose 205 H POC Glucose 228 H 223 H Uric Acid Calcium 7.4 L Phosphorus 7.40 H Magnesium Iron TIBC AST 58 H ALT 149 H Total Creatine Kinase CK-MB (CK-2) Troponin T NT-Pro-B Natriuret Pep Total Protein 6.0 L Albumin 2.5 L Triglycerides HDL Cholesterol Folate Urine WBC (Auto) Urine Creatinine Urine Total Protein Vancomycin Trough 06/01/19 06/01/19 06/01/19 04:33 05:27 12:31 WBC RBC Hgb Hct MCV MCH MCHC RDW Plt Count Lymph % (Auto) [place] % (Auto) Eos % (Auto) Lymph # [place] # Eos # Seg Neutrophils % Seg Neuts % (Manual) Lymphocytes % (Manual) Monocytes % (Manual) Eosinophils % (Manual) Nucleated RBC % Seg Neutrophils # Seg Neutrophils # Man Lymphocytes # (Manual) Monocytes # (Manual) Eosinophils # (Manual) PT INR APTT Fibrinogen POC ABG pH ABG pH POC ABG pCO2 POC ABG pO2 ABG pO2 56.9 L ABG HCO3 ABG O2 Saturation 85.9 L ABG Base Excess ABG Hemoglobin 8.1 L Oxyhemoglobin 83.6 L Sodium Potassium Chloride Carbon Dioxide BUN Creatinine Glucose POC Glucose 183 H 217 H Uric Acid Calcium Phosphorus Magnesium Iron TIBC AST ALT Total Creatine Kinase CK-MB (CK-2) Troponin T NT-Pro-B Natriuret Pep Total Protein Albumin Triglycerides HDL Cholesterol Folate Urine WBC (Auto) Urine Creatinine Urine Total Protein Vancomycin Trough 06/01/19 06/02/19 06/02/19 18:20 00:00 05:33 WBC RBC Hgb Hct MCV MCH MCHC RDW Plt Count Lymph % (Auto) [place] % (Auto) Eos % (Auto) Lymph # [place] # Eos # Seg Neutrophils % Seg Neuts % (Manual) Lymphocytes % (Manual) Monocytes % (Manual) Eosinophils % (Manual) Nucleated RBC % Seg Neutrophils # Seg Neutrophils # Man Lymphocytes # (Manual) Monocytes # (Manual) Eosinophils # (Manual) PT INR APTT Fibrinogen POC ABG pH ABG pH POC ABG pCO2 POC ABG pO2 ABG pO2 ABG HCO3 ABG O2 Saturation ABG Base Excess ABG Hemoglobin Oxyhemoglobin Sodium Potassium Chloride Carbon Dioxide BUN Creatinine Glucose POC Glucose 265 H 279 H 259 H Uric Acid Calcium Phosphorus Magnesium Iron TIBC AST ALT Total Creatine Kinase CK-MB (CK-2) Troponin T NT-Pro-B Natriuret Pep Total Protein Albumin Triglycerides HDL Cholesterol Folate Urine WBC (Auto) Urine Creatinine Urine Total Protein Vancomycin Trough 06/02/19 06/02/19 06/02/19 11:06 11:06 11:42 WBC 13.1 H RBC 2.92 L Hgb 7.9 L Hct 24.4 L MCV MCH 27 L MCHC RDW 17.4 H Plt Count Lymph % (Auto) [place] % (Auto) Eos % (Auto) Lymph # [place] # Eos # Seg Neutrophils % Seg Neuts % (Manual) 78.0 H Lymphocytes % (Manual) 12.0 L Monocytes % (Manual) 10.0 H Eosinophils % (Manual) Nucleated RBC % Seg Neutrophils # Seg Neutrophils # Man 10.2 H Lymphocytes # (Manual) Monocytes # (Manual) 1.3 H Eosinophils # (Manual) PT INR APTT Fibrinogen POC ABG pH ABG pH POC ABG pCO2 POC ABG pO2 ABG pO2 ABG HCO3 ABG O2 Saturation ABG Base Excess ABG Hemoglobin Oxyhemoglobin Sodium 135 L Potassium Chloride 94.7 L Carbon Dioxide 21 L BUN 107 H Creatinine 4.5 H Glucose 286 H POC Glucose 263 H Uric Acid Calcium 7.9 L Phosphorus 6.30 H Magnesium Iron TIBC AST ALT 104 H Total Creatine Kinase CK-MB (CK-2) Troponin T NT-Pro-B Natriuret Pep Total Protein 6.0 L Albumin 2.7 L Triglycerides HDL Cholesterol Folate Urine WBC (Auto) Urine Creatinine Urine Total Protein Vancomycin Trough 06/02/19 06/02/19 06/03/19 18:17 23:55 05:30 WBC RBC Hgb Hct MCV MCH MCHC RDW Plt Count Lymph % (Auto) [place] % (Auto) Eos % (Auto) Lymph # [place] # Eos # Seg Neutrophils % Seg Neuts % (Manual) Lymphocytes % (Manual) Monocytes % (Manual) Eosinophils % (Manual) Nucleated RBC % Seg Neutrophils # Seg Neutrophils # Man Lymphocytes # (Manual) Monocytes # (Manual) Eosinophils # (Manual) PT INR APTT Fibrinogen POC ABG pH ABG pH POC ABG pCO2 POC ABG pO2 ABG pO2 ABG HCO3 ABG O2 Saturation ABG Base Excess ABG Hemoglobin Oxyhemoglobin Sodium Potassium Chloride 95.1 L Carbon Dioxide 21 L BUN 119 H Creatinine 4.1 H Glucose 330 H POC Glucose 276 H 244 H Uric Acid Calcium 8.1 L Phosphorus Magnesium Iron TIBC AST ALT 98 H Total Creatine Kinase CK-MB (CK-2) Troponin T NT-Pro-B Natriuret Pep Total Protein 5.8 L Albumin 2.8 L Triglycerides HDL Cholesterol Folate Urine WBC (Auto) Urine Creatinine Urine Total Protein Vancomycin Trough 06/03/19 06/03/19 06/03/19 05:30 06:04 09:42 WBC 12.8 H RBC 3.01 L Hgb 8.2 L Hct 25.4 L MCV MCH 27 L MCHC RDW 17.5 H Plt Count Lymph % (Auto) [place] % (Auto) Eos % (Auto) Lymph # [place] # Eos # Seg Neutrophils % Seg Neuts % (Manual) 78.0 H Lymphocytes % (Manual) 10.0 L Monocytes % (Manual) 12.0 H Eosinophils % (Manual) Nucleated RBC % Seg Neutrophils # Seg Neutrophils # Man 10.0 H Lymphocytes # (Manual) Monocytes # (Manual) 1.5 H Eosinophils # (Manual) PT INR APTT Fibrinogen POC ABG pH ABG pH POC ABG pCO2 POC ABG pO2 ABG pO2 ABG HCO3 ABG O2 Saturation ABG Base Excess ABG Hemoglobin Oxyhemoglobin Sodium Potassium Chloride Carbon Dioxide BUN 106 H Creatinine Glucose POC Glucose 254 H Uric Acid Calcium Phosphorus Magnesium Iron TIBC AST ALT Total Creatine Kinase CK-MB (CK-2) Troponin T NT-Pro-B Natriuret Pep Total Protein Albumin Triglycerides HDL Cholesterol Folate Urine WBC (Auto) Urine Creatinine Urine Total Protein Vancomycin Trough 06/03/19 06/03/19 06/03/19 12:52 17:25 23:37 WBC RBC Hgb Hct MCV MCH MCHC RDW Plt Count Lymph % (Auto) [place] % (Auto) Eos % (Auto) Lymph # [place] # Eos # Seg Neutrophils % Seg Neuts % (Manual) Lymphocytes % (Manual) Monocytes % (Manual) Eosinophils % (Manual) Nucleated RBC % Seg Neutrophils # Seg Neutrophils # Man Lymphocytes # (Manual) Monocytes # (Manual) Eosinophils # (Manual) PT INR APTT Fibrinogen POC ABG pH ABG pH POC ABG pCO2 POC ABG pO2 ABG pO2 ABG HCO3 ABG O2 Saturation ABG Base Excess ABG Hemoglobin Oxyhemoglobin Sodium Potassium Chloride Carbon Dioxide BUN Creatinine Glucose POC Glucose 274 H 285 H 310 H Uric Acid Calcium Phosphorus Magnesium Iron TIBC AST ALT Total Creatine Kinase CK-MB (CK-2) Troponin T NT-Pro-B Natriuret Pep Total Protein Albumin Triglycerides HDL Cholesterol Folate Urine WBC (Auto) Urine Creatinine Urine Total Protein Vancomycin Trough 06/04/19 06/04/19 06/04/19 04:57 05:03 11:50 WBC RBC Hgb Hct MCV MCH MCHC RDW Plt Count Lymph % (Auto) [place] % (Auto) Eos % (Auto) Lymph # [place] # Eos # Seg Neutrophils % Seg Neuts % (Manual) Lymphocytes % (Manual) Monocytes % (Manual) Eosinophils % (Manual) Nucleated RBC % Seg Neutrophils # Seg Neutrophils # Man Lymphocytes # (Manual) Monocytes # (Manual) Eosinophils # (Manual) PT INR APTT Fibrinogen POC ABG pH 7.488 H ABG pH POC ABG pCO2 POC ABG pO2 ABG pO2 ABG HCO3 ABG O2 Saturation ABG Base Excess ABG Hemoglobin Oxyhemoglobin Sodium Potassium Chloride Carbon Dioxide BUN Creatinine Glucose POC Glucose 275 H 279 H Uric Acid Calcium Phosphorus Magnesium Iron TIBC AST ALT Total Creatine Kinase CK-MB (CK-2) Troponin T NT-Pro-B Natriuret Pep Total Protein Albumin Triglycerides HDL Cholesterol Folate Urine WBC (Auto) Urine Creatinine Urine Total Protein Vancomycin Trough 06/04/19 06/04/19 06/04/19 18:32 22:03 23:55 WBC RBC Hgb Hct MCV MCH MCHC RDW Plt Count Lymph % (Auto) [place] % (Auto) Eos % (Auto) Lymph # [place] # Eos # Seg Neutrophils % Seg Neuts % (Manual) Lymphocytes % (Manual) Monocytes % (Manual) Eosinophils % (Manual) Nucleated RBC % Seg Neutrophils # Seg Neutrophils # Man Lymphocytes # (Manual) Monocytes # (Manual) Eosinophils # (Manual) PT INR APTT Fibrinogen POC ABG pH ABG pH POC ABG pCO2 POC ABG pO2 ABG pO2 ABG HCO3 ABG O2 Saturation ABG Base Excess ABG Hemoglobin Oxyhemoglobin Sodium Potassium Chloride Carbon Dioxide BUN Creatinine Glucose POC Glucose 267 H 307 H 292 H Uric Acid Calcium Phosphorus Magnesium Iron TIBC AST ALT Total Creatine Kinase CK-MB (CK-2) Troponin T NT-Pro-B Natriuret Pep Total Protein Albumin Triglycerides HDL Cholesterol Folate Urine WBC (Auto) Urine Creatinine Urine Total Protein Vancomycin Trough 06/05/19 06/05/19 06/05/19 03:52 06:41 12:29 WBC RBC Hgb Hct MCV MCH MCHC RDW Plt Count Lymph % (Auto) [place] % (Auto) Eos % (Auto) Lymph # [place] # Eos # Seg Neutrophils % Seg Neuts % (Manual) Lymphocytes % (Manual) Monocytes % (Manual) Eosinophils % (Manual) Nucleated RBC % Seg Neutrophils # Seg Neutrophils # Man Lymphocytes # (Manual) Monocytes # (Manual) Eosinophils # (Manual) PT INR APTT Fibrinogen POC ABG pH 7.462 H ABG pH POC ABG pCO2 POC ABG pO2 ABG pO2 ABG HCO3 ABG O2 Saturation ABG Base Excess ABG Hemoglobin Oxyhemoglobin Sodium Potassium Chloride Carbon Dioxide BUN Creatinine Glucose POC Glucose 369 H 265 H Uric Acid Calcium Phosphorus Magnesium Iron TIBC AST ALT Total Creatine Kinase CK-MB (CK-2) Troponin T NT-Pro-B Natriuret Pep Total Protein Albumin Triglycerides HDL Cholesterol Folate Urine WBC (Auto) Urine Creatinine Urine Total Protein Vancomycin Trough 06/05/19 06/05/19 06/05/19 18:20 21:42 23:21 WBC RBC Hgb Hct MCV MCH MCHC RDW Plt Count Lymph % (Auto) [place] % (Auto) Eos % (Auto) Lymph # [place] # Eos # Seg Neutrophils % Seg Neuts % (Manual) Lymphocytes % (Manual) Monocytes % (Manual) Eosinophils % (Manual) Nucleated RBC % Seg Neutrophils # Seg Neutrophils # Man Lymphocytes # (Manual) Monocytes # (Manual) Eosinophils # (Manual) PT INR APTT Fibrinogen POC ABG pH ABG pH POC ABG pCO2 POC ABG pO2 ABG pO2 ABG HCO3 ABG O2 Saturation ABG Base Excess ABG Hemoglobin Oxyhemoglobin Sodium Potassium Chloride Carbon Dioxide BUN Creatinine Glucose POC Glucose 249 H 246 H 274 H Uric Acid Calcium Phosphorus Magnesium Iron TIBC AST ALT Total Creatine Kinase CK-MB (CK-2) Troponin T NT-Pro-B Natriuret Pep Total Protein Albumin Triglycerides HDL Cholesterol Folate Urine WBC (Auto) Urine Creatinine Urine Total Protein Vancomycin Trough 06/06/19 06/06/19 06/06/19 04:00 05:49 11:34 WBC 18.1 H RBC 3.53 L Hgb 9.5 L Hct 30.3 L MCV MCH 27 L MCHC 31 L RDW 19.5 H Plt Count Lymph % (Auto) [place] % (Auto) Eos % (Auto) Lymph # [place] # Eos # Seg Neutrophils % Seg Neuts % (Manual) 87.0 H Lymphocytes % (Manual) 3.0 L Monocytes % (Manual) 8.0 H Eosinophils % (Manual) Nucleated RBC % Seg Neutrophils # Seg Neutrophils # Man 15.7 H Lymphocytes # (Manual) 0.5 L Monocytes # (Manual) 1.4 H Eosinophils # (Manual) PT INR APTT Fibrinogen POC ABG pH ABG pH 7.472 H POC ABG pCO2 POC ABG pO2 ABG pO2 76.4 L ABG HCO3 28.1 H ABG O2 Saturation ABG Base Excess 4.3 H ABG Hemoglobin 12.5 L Oxyhemoglobin 93.8 L Sodium Potassium Chloride Carbon Dioxide BUN Creatinine Glucose POC Glucose 340 H Uric Acid Calcium Phosphorus Magnesium Iron TIBC AST ALT Total Creatine Kinase CK-MB (CK-2) Troponin T NT-Pro-B Natriuret Pep Total Protein Albumin Triglycerides HDL Cholesterol Folate Urine WBC (Auto) Urine Creatinine Urine Total Protein Vancomycin Trough 06/06/19 06/06/19 06/06/19 11:34 12:11 18:10 WBC RBC Hgb Hct MCV MCH MCHC RDW Plt Count Lymph % (Auto) [place] % (Auto) Eos % (Auto) Lymph # [place] # Eos # Seg Neutrophils % Seg Neuts % (Manual) Lymphocytes % (Manual) Monocytes % (Manual) Eosinophils % (Manual) Nucleated RBC % Seg Neutrophils # Seg Neutrophils # Man Lymphocytes # (Manual) Monocytes # (Manual) Eosinophils # (Manual) PT INR APTT Fibrinogen POC ABG pH ABG pH POC ABG pCO2 POC ABG pO2 ABG pO2 ABG HCO3 ABG O2 Saturation ABG Base Excess ABG Hemoglobin Oxyhemoglobin Sodium Potassium Chloride Carbon Dioxide BUN 70 H Creatinine Glucose 310 H POC Glucose 283 H 301 H Uric Acid Calcium 8.3 L Phosphorus 4.60 H Magnesium Iron TIBC AST ALT 75 H Total Creatine Kinase CK-MB (CK-2) Troponin T NT-Pro-B Natriuret Pep Total Protein 5.6 L Albumin 2.9 L Triglycerides HDL Cholesterol Folate Urine WBC (Auto) Urine Creatinine Urine Total Protein Vancomycin Trough 06/06/19 06/06/19 06/07/19 22:21 23:16 04:30 WBC RBC Hgb Hct MCV MCH MCHC RDW Plt Count Lymph % (Auto) [place] % (Auto) Eos % (Auto) Lymph # [place] # Eos # Seg Neutrophils % Seg Neuts % (Manual) Lymphocytes % (Manual) Monocytes % (Manual) Eosinophils % (Manual) Nucleated RBC % Seg Neutrophils # Seg Neutrophils # Man Lymphocytes # (Manual) Monocytes # (Manual) Eosinophils # (Manual) PT INR APTT Fibrinogen POC ABG pH ABG pH 7.480 H POC ABG pCO2 POC ABG pO2 ABG pO2 77.0 L ABG HCO3 27.2 H ABG O2 Saturation ABG Base Excess 3.5 H ABG Hemoglobin 7.1 L Oxyhemoglobin 94.2 L Sodium Potassium Chloride Carbon Dioxide BUN Creatinine Glucose POC Glucose 289 H 343 H Uric Acid Calcium Phosphorus Magnesium Iron TIBC AST ALT Total Creatine Kinase CK-MB (CK-2) Troponin T NT-Pro-B Natriuret Pep Total Protein Albumin Triglycerides HDL Cholesterol Folate Urine WBC (Auto) Urine Creatinine Urine Total Protein Vancomycin Trough 06/07/19 06/07/19 06/07/19 05:15 12:52 18:41 WBC RBC Hgb Hct MCV MCH MCHC RDW Plt Count Lymph % (Auto) [place] % (Auto) Eos % (Auto) Lymph # [place] # Eos # Seg Neutrophils % Seg Neuts % (Manual) Lymphocytes % (Manual) Monocytes % (Manual) Eosinophils % (Manual) Nucleated RBC % Seg Neutrophils # Seg Neutrophils # Man Lymphocytes # (Manual) Monocytes # (Manual) Eosinophils # (Manual) PT INR APTT Fibrinogen POC ABG pH ABG pH POC ABG pCO2 POC ABG pO2 ABG pO2 ABG HCO3 ABG O2 Saturation ABG Base Excess ABG Hemoglobin Oxyhemoglobin Sodium Potassium Chloride Carbon Dioxide BUN Creatinine Glucose POC Glucose 307 H 226 H 187 H Uric Acid Calcium Phosphorus Magnesium Iron TIBC AST ALT Total Creatine Kinase CK-MB (CK-2) Troponin T NT-Pro-B Natriuret Pep Total Protein Albumin Triglycerides HDL Cholesterol Folate Urine WBC (Auto) Urine Creatinine Urine Total Protein Vancomycin Trough 06/07/19 06/07/19 06/08/19 22:54 23:46 04:20 WBC 16.0 H RBC Hgb 10.0 L Hct 32.1 L MCV MCH 27 L MCHC 31 L RDW 19.4 H Plt Count Lymph % (Auto) [place] % (Auto) Eos % (Auto) Lymph # [place] # Eos # Seg Neutrophils % Seg Neuts % (Manual) 87.0 H Lymphocytes % (Manual) 7.0 L Monocytes % (Manual) Eosinophils % (Manual) Nucleated RBC % Seg Neutrophils # Seg Neutrophils # Man 13.9 H Lymphocytes # (Manual) 1.1 L Monocytes # (Manual) 1.0 H Eosinophils # (Manual) PT INR APTT Fibrinogen POC ABG pH ABG pH POC ABG pCO2 POC ABG pO2 ABG pO2 ABG HCO3 ABG O2 Saturation ABG Base Excess ABG Hemoglobin Oxyhemoglobin Sodium Potassium Chloride Carbon Dioxide BUN Creatinine Glucose POC Glucose 199 H 172 H Uric Acid Calcium Phosphorus Magnesium Iron TIBC AST ALT Total Creatine Kinase CK-MB (CK-2) Troponin T NT-Pro-B Natriuret Pep Total Protein Albumin Triglycerides HDL Cholesterol Folate Urine WBC (Auto) Urine Creatinine Urine Total Protein Vancomycin Trough 06/08/19 06/08/19 06/08/19 04:20 05:15 11:31 WBC RBC Hgb Hct MCV MCH MCHC RDW Plt Count Lymph % (Auto) [place] % (Auto) Eos % (Auto) Lymph # [place] # Eos # Seg Neutrophils % Seg Neuts % (Manual) Lymphocytes % (Manual) Monocytes % (Manual) Eosinophils % (Manual) Nucleated RBC % Seg Neutrophils # Seg Neutrophils # Man Lymphocytes # (Manual) Monocytes # (Manual) Eosinophils # (Manual) PT INR APTT Fibrinogen POC ABG pH ABG pH POC ABG pCO2 POC ABG pO2 ABG pO2 ABG HCO3 ABG O2 Saturation ABG Base Excess ABG Hemoglobin Oxyhemoglobin Sodium 146 H D Potassium Chloride Carbon Dioxide BUN 77 H Creatinine Glucose 205 H POC Glucose 209 H 181 H Uric Acid Calcium Phosphorus Magnesium Iron TIBC AST ALT 66 H Total Creatine Kinase CK-MB (CK-2) Troponin T NT-Pro-B Natriuret Pep Total Protein 5.5 L Albumin 2.9 L Triglycerides HDL Cholesterol Folate Urine WBC (Auto) Urine Creatinine Urine Total Protein Vancomycin Trough 06/08/19 06/08/19 06/09/19 17:28 23:24 05:20 WBC RBC Hgb Hct MCV MCH MCHC RDW Plt Count Lymph % (Auto) [place] % (Auto) Eos % (Auto) Lymph # [place] # Eos # Seg Neutrophils % Seg Neuts % (Manual) Lymphocytes % (Manual) Monocytes % (Manual) Eosinophils % (Manual) Nucleated RBC % Seg Neutrophils # Seg Neutrophils # Man Lymphocytes # (Manual) Monocytes # (Manual) Eosinophils # (Manual) PT INR APTT Fibrinogen POC ABG pH ABG pH POC ABG pCO2 POC ABG pO2 ABG pO2 ABG HCO3 ABG O2 Saturation ABG Base Excess ABG Hemoglobin Oxyhemoglobin Sodium Potassium Chloride Carbon Dioxide BUN Creatinine Glucose POC Glucose 215 H 200 H 173 H Uric Acid Calcium Phosphorus Magnesium Iron TIBC AST ALT Total Creatine Kinase CK-MB (CK-2) Troponin T NT-Pro-B Natriuret Pep Total Protein Albumin Triglycerides HDL Cholesterol Folate Urine WBC (Auto) Urine Creatinine Urine Total Protein Vancomycin Trough 06/09/19 06/09/19 06/09/19 12:07 18:32 23:51 WBC RBC Hgb Hct MCV MCH MCHC RDW Plt Count Lymph % (Auto) [place] % (Auto) Eos % (Auto) Lymph # [place] # Eos # Seg Neutrophils % Seg Neuts % (Manual) Lymphocytes % (Manual) Monocytes % (Manual) Eosinophils % (Manual) Nucleated RBC % Seg Neutrophils # Seg Neutrophils # Man Lymphocytes # (Manual) Monocytes # (Manual) Eosinophils # (Manual) PT INR APTT Fibrinogen POC ABG pH ABG pH POC ABG pCO2 POC ABG pO2 ABG pO2 ABG HCO3 ABG O2 Saturation ABG Base Excess ABG Hemoglobin Oxyhemoglobin Sodium Potassium Chloride Carbon Dioxide BUN Creatinine Glucose POC Glucose 117 H 169 H 147 H Uric Acid Calcium Phosphorus Magnesium Iron TIBC AST ALT Total Creatine Kinase CK-MB (CK-2) Troponin T NT-Pro-B Natriuret Pep Total Protein Albumin Triglycerides HDL Cholesterol Folate Urine WBC (Auto) Urine Creatinine Urine Total Protein Vancomycin Trough 06/10/19 06/10/19 06/10/19 05:45 05:45 06:01 WBC 14.6 H RBC Hgb 9.9 L Hct 32.2 L MCV MCH 27 L MCHC 31 L RDW 19.6 H Plt Count Lymph % (Auto) 10.5 L [place] % (Auto) 9.4 H Eos % (Auto) Lymph # [place] # 1.4 H Eos # Seg Neutrophils % 79.9 H Seg Neuts % (Manual) Lymphocytes % (Manual) Monocytes % (Manual) Eosinophils % (Manual) Nucleated RBC % Seg Neutrophils # 11.7 H Seg Neutrophils # Man Lymphocytes # (Manual) Monocytes # (Manual) Eosinophils # (Manual) PT INR APTT Fibrinogen POC ABG pH ABG pH POC ABG pCO2 POC ABG pO2 ABG pO2 ABG HCO3 ABG O2 Saturation ABG Base Excess ABG Hemoglobin Oxyhemoglobin Sodium 150 H Potassium Chloride 108.3 H Carbon Dioxide BUN 49 H Creatinine Glucose 172 H POC Glucose 165 H Uric Acid Calcium Phosphorus Magnesium 1.40 L Iron TIBC AST ALT Total Creatine Kinase CK-MB (CK-2) Troponin T NT-Pro-B Natriuret Pep Total Protein Albumin Triglycerides HDL Cholesterol Folate Urine WBC (Auto) Urine Creatinine Urine Total Protein Vancomycin Trough 06/10/19 06/10/19 06/11/19 12:11 18:30 00:02 WBC RBC Hgb Hct MCV MCH MCHC RDW Plt Count Lymph % (Auto) [place] % (Auto) Eos % (Auto) Lymph # [place] # Eos # Seg Neutrophils % Seg Neuts % (Manual) Lymphocytes % (Manual) Monocytes % (Manual) Eosinophils % (Manual) Nucleated RBC % Seg Neutrophils # Seg Neutrophils # Man Lymphocytes # (Manual) Monocytes # (Manual) Eosinophils # (Manual) PT INR APTT Fibrinogen POC ABG pH ABG pH POC ABG pCO2 POC ABG pO2 ABG pO2 ABG HCO3 ABG O2 Saturation ABG Base Excess ABG Hemoglobin Oxyhemoglobin Sodium Potassium Chloride Carbon Dioxide BUN Creatinine Glucose POC Glucose 150 H 154 H 130 H Uric Acid Calcium Phosphorus Magnesium Iron TIBC AST ALT Total Creatine Kinase CK-MB (CK-2) Troponin T NT-Pro-B Natriuret Pep Total Protein Albumin Triglycerides HDL Cholesterol Folate Urine WBC (Auto) Urine Creatinine Urine Total Protein Vancomycin Trough 06/11/19 06/11/19 06/11/19 05:33 08:34 12:33 WBC RBC Hgb Hct MCV MCH MCHC RDW Plt Count Lymph % (Auto) [place] % (Auto) Eos % (Auto) Lymph # [place] # Eos # Seg Neutrophils % Seg Neuts % (Manual) Lymphocytes % (Manual) Monocytes % (Manual) Eosinophils % (Manual) Nucleated RBC % Seg Neutrophils # Seg Neutrophils # Man Lymphocytes # (Manual) Monocytes # (Manual) Eosinophils # (Manual) PT INR APTT Fibrinogen POC ABG pH ABG pH POC ABG pCO2 POC ABG pO2 ABG pO2 ABG HCO3 ABG O2 Saturation ABG Base Excess ABG Hemoglobin Oxyhemoglobin Sodium 154 H Potassium Chloride 111.6 H Carbon Dioxide BUN 41 H Creatinine Glucose 147 H POC Glucose 183 H 185 H Uric Acid Calcium Phosphorus Magnesium Iron TIBC AST ALT Total Creatine Kinase CK-MB (CK-2) Troponin T NT-Pro-B Natriuret Pep Total Protein Albumin Triglycerides HDL Cholesterol Folate Urine WBC (Auto) Urine Creatinine Urine Total Protein Vancomycin Trough 06/11/19 06/11/19 06/12/19 18:22 23:46 03:21 WBC 11.9 H RBC 3.61 L Hgb 9.9 L Hct 31.7 L MCV MCH 27 L MCHC 31 L RDW 19.3 H Plt Count Lymph % (Auto) 10.6 L [place] % (Auto) 8.6 H Eos % (Auto) Lymph # [place] # 1.0 H Eos # Seg Neutrophils % 80.6 H Seg Neuts % (Manual) Lymphocytes % (Manual) Monocytes % (Manual) Eosinophils % (Manual) Nucleated RBC % Seg Neutrophils # 9.6 H Seg Neutrophils # Man Lymphocytes # (Manual) Monocytes # (Manual) Eosinophils # (Manual) PT INR APTT Fibrinogen POC ABG pH ABG pH POC ABG pCO2 POC ABG pO2 ABG pO2 ABG HCO3 ABG O2 Saturation ABG Base Excess ABG Hemoglobin Oxyhemoglobin Sodium Potassium Chloride Carbon Dioxide BUN Creatinine Glucose POC Glucose 158 H 182 H Uric Acid Calcium Phosphorus Magnesium Iron TIBC AST ALT Total Creatine Kinase CK-MB (CK-2) Troponin T NT-Pro-B Natriuret Pep Total Protein Albumin Triglycerides HDL Cholesterol Folate Urine WBC (Auto) Urine Creatinine Urine Total Protein Vancomycin Trough 06/12/19 06/12/19 06/12/19 03:21 06:04 11:28 WBC RBC Hgb Hct MCV MCH MCHC RDW Plt Count Lymph % (Auto) [place] % (Auto) Eos % (Auto) Lymph # [place] # Eos # Seg Neutrophils % Seg Neuts % (Manual) Lymphocytes % (Manual) Monocytes % (Manual) Eosinophils % (Manual) Nucleated RBC % Seg Neutrophils # Seg Neutrophils # Man Lymphocytes # (Manual) Monocytes # (Manual) Eosinophils # (Manual) PT INR APTT Fibrinogen POC ABG pH ABG pH POC ABG pCO2 POC ABG pO2 ABG pO2 ABG HCO3 ABG O2 Saturation ABG Base Excess ABG Hemoglobin Oxyhemoglobin Sodium 148 H Potassium Chloride 107.3 H Carbon Dioxide BUN 34 H Creatinine 0.7 L Glucose 194 H POC Glucose 133 H 167 H Uric Acid Calcium Phosphorus Magnesium 1.40 L Iron TIBC AST ALT Total Creatine Kinase CK-MB (CK-2) Troponin T NT-Pro-B Natriuret Pep Total Protein Albumin Triglycerides HDL Cholesterol Folate Urine WBC (Auto) Urine Creatinine Urine Total Protein Vancomycin Trough 06/12/19 06/12/19 06/13/19 18:47 21:27 00:04 WBC RBC Hgb Hct MCV MCH MCHC RDW Plt Count Lymph % (Auto) [place] % (Auto) Eos % (Auto) Lymph # [place] # Eos # Seg Neutrophils % Seg Neuts % (Manual) Lymphocytes % (Manual) Monocytes % (Manual) Eosinophils % (Manual) Nucleated RBC % Seg Neutrophils # Seg Neutrophils # Man Lymphocytes # (Manual) Monocytes # (Manual) Eosinophils # (Manual) PT INR APTT Fibrinogen POC ABG pH ABG pH POC ABG pCO2 POC ABG pO2 ABG pO2 ABG HCO3 ABG O2 Saturation ABG Base Excess ABG Hemoglobin Oxyhemoglobin Sodium Potassium Chloride Carbon Dioxide BUN Creatinine Glucose POC Glucose 210 H 263 H 248 H Uric Acid Calcium Phosphorus Magnesium Iron TIBC AST ALT Total Creatine Kinase CK-MB (CK-2) Troponin T NT-Pro-B Natriuret Pep Total Protein Albumin Triglycerides HDL Cholesterol Folate Urine WBC (Auto) Urine Creatinine Urine Total Protein Vancomycin Trough 06/13/19 06/13/19 06/13/19 04:32 05:46 13:30 WBC RBC Hgb Hct MCV MCH MCHC RDW Plt Count Lymph % (Auto) [place] % (Auto) Eos % (Auto) Lymph # [place] # Eos # Seg Neutrophils % Seg Neuts % (Manual) Lymphocytes % (Manual) Monocytes % (Manual) Eosinophils % (Manual) Nucleated RBC % Seg Neutrophils # Seg Neutrophils # Man Lymphocytes # (Manual) Monocytes # (Manual) Eosinophils # (Manual) PT INR APTT Fibrinogen POC ABG pH ABG pH POC ABG pCO2 POC ABG pO2 ABG pO2 ABG HCO3 ABG O2 Saturation ABG Base Excess ABG Hemoglobin Oxyhemoglobin Sodium Potassium Chloride Carbon Dioxide BUN 27 H Creatinine 0.7 L Glucose 253 H POC Glucose 201 H 241 H Uric Acid Calcium Phosphorus Magnesium Iron TIBC AST ALT Total Creatine Kinase CK-MB (CK-2) Troponin T NT-Pro-B Natriuret Pep Total Protein Albumin Triglycerides HDL Cholesterol Folate Urine WBC (Auto) Urine Creatinine Urine Total Protein Vancomycin Trough 06/13/19 06/13/19 06/14/19 17:33 23:49 04:50 WBC RBC Hgb Hct MCV MCH MCHC RDW Plt Count Lymph % (Auto) [place] % (Auto) Eos % (Auto) Lymph # [place] # Eos # Seg Neutrophils % Seg Neuts % (Manual) Lymphocytes % (Manual) Monocytes % (Manual) Eosinophils % (Manual) Nucleated RBC % Seg Neutrophils # Seg Neutrophils # Man Lymphocytes # (Manual) Monocytes # (Manual) Eosinophils # (Manual) PT INR APTT Fibrinogen POC ABG pH ABG pH POC ABG pCO2 POC ABG pO2 ABG pO2 ABG HCO3 ABG O2 Saturation ABG Base Excess ABG Hemoglobin Oxyhemoglobin Sodium Potassium Chloride Carbon Dioxide BUN 37 H Creatinine Glucose 256 H POC Glucose 264 H 236 H Uric Acid Calcium Phosphorus Magnesium Iron TIBC AST ALT Total Creatine Kinase CK-MB (CK-2) Troponin T NT-Pro-B Natriuret Pep Total Protein Albumin Triglycerides HDL Cholesterol Folate Urine WBC (Auto) Urine Creatinine Urine Total Protein Vancomycin Trough 06/14/19 06/14/19 06/14/19 05:26 12:31 18:32 WBC RBC Hgb Hct MCV MCH MCHC RDW Plt Count Lymph % (Auto) [place] % (Auto) Eos % (Auto) Lymph # [place] # Eos # Seg Neutrophils % Seg Neuts % (Manual) Lymphocytes % (Manual) Monocytes % (Manual) Eosinophils % (Manual) Nucleated RBC % Seg Neutrophils # Seg Neutrophils # Man Lymphocytes # (Manual) Monocytes # (Manual) Eosinophils # (Manual) PT INR APTT Fibrinogen POC ABG pH ABG pH POC ABG pCO2 POC ABG pO2 ABG pO2 ABG HCO3 ABG O2 Saturation ABG Base Excess ABG Hemoglobin Oxyhemoglobin Sodium Potassium Chloride Carbon Dioxide BUN Creatinine Glucose POC Glucose 239 H 116 H 247 H Uric Acid Calcium Phosphorus Magnesium Iron TIBC AST ALT Total Creatine Kinase CK-MB (CK-2) Troponin T NT-Pro-B Natriuret Pep Total Protein Albumin Triglycerides HDL Cholesterol Folate Urine WBC (Auto) Urine Creatinine Urine Total Protein Vancomycin Trough 06/14/19 06/15/19 06/15/19 23:57 04:05 05:55 WBC RBC Hgb Hct MCV MCH MCHC RDW Plt Count Lymph % (Auto) [place] % (Auto) Eos % (Auto) Lymph # [place] # Eos # Seg Neutrophils % Seg Neuts % (Manual) Lymphocytes % (Manual) Monocytes % (Manual) Eosinophils % (Manual) Nucleated RBC % Seg Neutrophils # Seg Neutrophils # Man Lymphocytes # (Manual) Monocytes # (Manual) Eosinophils # (Manual) PT INR APTT Fibrinogen POC ABG pH ABG pH POC ABG pCO2 POC ABG pO2 ABG pO2 ABG HCO3 ABG O2 Saturation ABG Base Excess ABG Hemoglobin Oxyhemoglobin Sodium Potassium Chloride Carbon Dioxide BUN 46 H Creatinine 0.7 L Glucose 265 H POC Glucose 206 H 265 H Uric Acid Calcium Phosphorus Magnesium Iron TIBC AST ALT Total Creatine Kinase CK-MB (CK-2) Troponin T NT-Pro-B Natriuret Pep Total Protein Albumin Triglycerides HDL Cholesterol Folate Urine WBC (Auto) Urine Creatinine Urine Total Protein Vancomycin Trough 06/15/19 06/15/19 06/15/19 12:08 18:45 23:41 WBC RBC Hgb Hct MCV MCH MCHC RDW Plt Count Lymph % (Auto) [place] % (Auto) Eos % (Auto) Lymph # [place] # Eos # Seg Neutrophils % Seg Neuts % (Manual) Lymphocytes % (Manual) Monocytes % (Manual) Eosinophils % (Manual) Nucleated RBC % Seg Neutrophils # Seg Neutrophils # Man Lymphocytes # (Manual) Monocytes # (Manual) Eosinophils # (Manual) PT INR APTT Fibrinogen POC ABG pH ABG pH POC ABG pCO2 POC ABG pO2 ABG pO2 ABG HCO3 ABG O2 Saturation ABG Base Excess ABG Hemoglobin Oxyhemoglobin Sodium Potassium Chloride Carbon Dioxide BUN Creatinine Glucose POC Glucose 224 H 177 H 193 H Uric Acid Calcium Phosphorus Magnesium Iron TIBC AST ALT Total Creatine Kinase CK-MB (CK-2) Troponin T NT-Pro-B Natriuret Pep Total Protein Albumin Triglycerides HDL Cholesterol Folate Urine WBC (Auto) Urine Creatinine Urine Total Protein Vancomycin Trough 06/16/19 06/16/19 06/16/19 05:00 05:00 05:40 WBC 11.9 H RBC 3.24 L Hgb 9.0 L Hct 29.0 L MCV MCH MCHC 31 L RDW 18.6 H Plt Count 111 L Lymph % (Auto) [place] % (Auto) Eos % (Auto) Lymph # [place] # Eos # Seg Neutrophils % Seg Neuts % (Manual) 92.0 H Lymphocytes % (Manual) 2.0 L Monocytes % (Manual) Eosinophils % (Manual) Nucleated RBC % Seg Neutrophils # Seg Neutrophils # Man 10.9 H Lymphocytes # (Manual) 0.2 L Monocytes # (Manual) Eosinophils # (Manual) PT INR APTT Fibrinogen POC ABG pH ABG pH POC ABG pCO2 POC ABG pO2 ABG pO2 ABG HCO3 ABG O2 Saturation ABG Base Excess ABG Hemoglobin Oxyhemoglobin Sodium Potassium Chloride Carbon Dioxide 33 H BUN 49 H Creatinine 0.7 L Glucose 264 H POC Glucose 247 H Uric Acid Calcium Phosphorus Magnesium Iron TIBC AST ALT Total Creatine Kinase CK-MB (CK-2) Troponin T NT-Pro-B Natriuret Pep Total Protein Albumin Triglycerides HDL Cholesterol Folate Urine WBC (Auto) Urine Creatinine Urine Total Protein Vancomycin Trough 06/16/19 06/16/19 06/16/19 12:03 17:11 18:11 WBC RBC Hgb Hct MCV MCH MCHC RDW Plt Count Lymph % (Auto) [place] % (Auto) Eos % (Auto) Lymph # [place] # Eos # Seg Neutrophils % Seg Neuts % (Manual) Lymphocytes % (Manual) Monocytes % (Manual) Eosinophils % (Manual) Nucleated RBC % Seg Neutrophils # Seg Neutrophils # Man Lymphocytes # (Manual) Monocytes # (Manual) Eosinophils # (Manual) PT INR APTT Fibrinogen POC ABG pH ABG pH 7.289 L POC ABG pCO2 POC ABG pO2 ABG pO2 399.3 H ABG HCO3 30.1 H ABG O2 Saturation 99.6 H ABG Base Excess ABG Hemoglobin 8.6 L Oxyhemoglobin Sodium Potassium Chloride Carbon Dioxide BUN Creatinine Glucose POC Glucose 252 H 254 H Uric Acid Calcium Phosphorus Magnesium Iron TIBC AST ALT Total Creatine Kinase CK-MB (CK-2) Troponin T NT-Pro-B Natriuret Pep Total Protein Albumin Triglycerides HDL Cholesterol Folate Urine WBC (Auto) Urine Creatinine Urine Total Protein Vancomycin Trough 06/16/19 06/17/19 06/17/19 23:16 05:30 05:53 WBC RBC Hgb Hct MCV MCH MCHC RDW Plt Count Lymph % (Auto) [place] % (Auto) Eos % (Auto) Lymph # [place] # Eos # Seg Neutrophils % Seg Neuts % (Manual) Lymphocytes % (Manual) Monocytes % (Manual) Eosinophils % (Manual) Nucleated RBC % Seg Neutrophils # Seg Neutrophils # Man Lymphocytes # (Manual) Monocytes # (Manual) Eosinophils # (Manual) PT INR APTT Fibrinogen POC ABG pH ABG pH POC ABG pCO2 POC ABG pO2 ABG pO2 ABG HCO3 ABG O2 Saturation ABG Base Excess ABG Hemoglobin Oxyhemoglobin Sodium 147 H Potassium Chloride Carbon Dioxide 32 H BUN 60 H Creatinine Glucose 205 H POC Glucose 238 H 211 H Uric Acid Calcium Phosphorus Magnesium Iron TIBC AST ALT Total Creatine Kinase CK-MB (CK-2) Troponin T NT-Pro-B Natriuret Pep Total Protein Albumin Triglycerides HDL Cholesterol Folate Urine WBC (Auto) Urine Creatinine Urine Total Protein Vancomycin Trough 06/17/19 06/17/19 06/17/19 09:50 12:27 12:45 WBC RBC 2.79 L Hgb 8.2 L Hct 24.6 L MCV MCH MCHC RDW 18.5 H Plt Count 95 L Lymph % (Auto) [place] % (Auto) Eos % (Auto) Lymph # [place] # Eos # Seg Neutrophils % Seg Neuts % (Manual) Lymphocytes % (Manual) Monocytes % (Manual) Eosinophils % (Manual) Nucleated RBC % Seg Neutrophils # Seg Neutrophils # Man Lymphocytes # (Manual) Monocytes # (Manual) Eosinophils # (Manual) PT INR APTT Fibrinogen 194 L POC ABG pH ABG pH POC ABG pCO2 POC ABG pO2 ABG pO2 ABG HCO3 ABG O2 Saturation ABG Base Excess ABG Hemoglobin Oxyhemoglobin Sodium Potassium Chloride Carbon Dioxide BUN Creatinine Glucose POC Glucose 224 H Uric Acid Calcium Phosphorus Magnesium Iron TIBC AST ALT Total Creatine Kinase CK-MB (CK-2) Troponin T NT-Pro-B Natriuret Pep Total Protein Albumin Triglycerides HDL Cholesterol Folate Urine WBC (Auto) Urine Creatinine Urine Total Protein Vancomycin Trough 06/17/19 06/17/19 06/17/19 18:41 22:00 23:23 WBC RBC Hgb Hct MCV MCH MCHC RDW Plt Count Lymph % (Auto) [place] % (Auto) Eos % (Auto) Lymph # [place] # Eos # Seg Neutrophils % Seg Neuts % (Manual) Lymphocytes % (Manual) Monocytes % (Manual) Eosinophils % (Manual) Nucleated RBC % Seg Neutrophils # Seg Neutrophils # Man Lymphocytes # (Manual) Monocytes # (Manual) Eosinophils # (Manual) PT INR APTT Fibrinogen POC ABG pH ABG pH POC ABG pCO2 POC ABG pO2 ABG pO2 ABG HCO3 ABG O2 Saturation ABG Base Excess ABG Hemoglobin Oxyhemoglobin Sodium Potassium Chloride Carbon Dioxide BUN Creatinine Glucose POC Glucose 198 H 166 H 171 H Uric Acid Calcium Phosphorus Magnesium Iron TIBC AST ALT Total Creatine Kinase CK-MB (CK-2) Troponin T NT-Pro-B Natriuret Pep Total Protein Albumin Triglycerides HDL Cholesterol Folate Urine WBC (Auto) Urine Creatinine Urine Total Protein Vancomycin Trough 06/17/19 06/18/19 06/18/19 Unknown 03:50 04:25 WBC RBC Hgb Hct MCV MCH MCHC RDW Plt Count Lymph % (Auto) [place] % (Auto) Eos % (Auto) Lymph # [place] # Eos # Seg Neutrophils % Seg Neuts % (Manual) Lymphocytes % (Manual) Monocytes % (Manual) Eosinophils % (Manual) Nucleated RBC % Seg Neutrophils # Seg Neutrophils # Man Lymphocytes # (Manual) Monocytes # (Manual) Eosinophils # (Manual) PT INR APTT Fibrinogen POC ABG pH ABG pH 7.564 H 7.499 H POC ABG pCO2 POC ABG pO2 ABG pO2 238.6 H 130.8 H ABG HCO3 33.6 H 32.5 H ABG O2 Saturation 99.4 H ABG Base Excess 10.6 H 8.5 H ABG Hemoglobin 7.9 L 8.8 L Oxyhemoglobin Sodium 151 H Potassium 3.4 L Chloride Carbon Dioxide BUN 66 H Creatinine Glucose 189 H POC Glucose Uric Acid Calcium Phosphorus Magnesium Iron TIBC AST ALT Total Creatine Kinase CK-MB (CK-2) Troponin T NT-Pro-B Natriuret Pep Total Protein Albumin Triglycerides HDL Cholesterol Folate Urine WBC (Auto) Urine Creatinine Urine Total Protein Vancomycin Trough 06/18/19 06/18/19 06/18/19 05:25 05:27 11:50 WBC RBC 2.61 L Hgb 7.4 L Hct 22.9 L MCV MCH MCHC RDW 19.9 H Plt Count 81 L Lymph % (Auto) 12.9 L [place] % (Auto) 7.7 H Eos % (Auto) Lymph # 1.1 L [place] # Eos # Seg Neutrophils % 77.4 H Seg Neuts % (Manual) Lymphocytes % (Manual) Monocytes % (Manual) Eosinophils % (Manual) Nucleated RBC % Seg Neutrophils # Seg Neutrophils # Man Lymphocytes # (Manual) Monocytes # (Manual) Eosinophils # (Manual) PT INR APTT Fibrinogen POC ABG pH ABG pH POC ABG pCO2 POC ABG pO2 ABG pO2 ABG HCO3 ABG O2 Saturation ABG Base Excess ABG Hemoglobin Oxyhemoglobin Sodium Potassium Chloride Carbon Dioxide BUN Creatinine Glucose POC Glucose 186 H 263 H Uric Acid Calcium Phosphorus Magnesium Iron TIBC AST ALT Total Creatine Kinase CK-MB (CK-2) Troponin T NT-Pro-B Natriuret Pep Total Protein Albumin Triglycerides HDL Cholesterol Folate Urine WBC (Auto) Urine Creatinine Urine Total Protein Vancomycin Trough 06/18/19 06/18/19 06/18/19 18:35 21:31 23:21 WBC RBC Hgb Hct MCV MCH MCHC RDW Plt Count Lymph % (Auto) [place] % (Auto) Eos % (Auto) Lymph # [place] # Eos # Seg Neutrophils % Seg Neuts % (Manual) Lymphocytes % (Manual) Monocytes % (Manual) Eosinophils % (Manual) Nucleated RBC % Seg Neutrophils # Seg Neutrophils # Man Lymphocytes # (Manual) Monocytes # (Manual) Eosinophils # (Manual) PT INR APTT Fibrinogen POC ABG pH ABG pH POC ABG pCO2 POC ABG pO2 ABG pO2 ABG HCO3 ABG O2 Saturation ABG Base Excess ABG Hemoglobin Oxyhemoglobin Sodium Potassium Chloride Carbon Dioxide BUN Creatinine Glucose POC Glucose 154 H 186 H 202 H Uric Acid Calcium Phosphorus Magnesium Iron TIBC AST ALT Total Creatine Kinase CK-MB (CK-2) Troponin T NT-Pro-B Natriuret Pep Total Protein Albumin Triglycerides HDL Cholesterol Folate Urine WBC (Auto) Urine Creatinine Urine Total Protein Vancomycin Trough 06/19/19 06/19/19 06/19/19 03:18 04:30 04:30 WBC RBC 2.65 L Hgb 7.5 L Hct 23.1 L MCV MCH MCHC RDW 19.4 H Plt Count 74 L Lymph % (Auto) 8.8 L [place] % (Auto) 9.4 H Eos % (Auto) 4.7 H Lymph # 0.6 L [place] # Eos # Seg Neutrophils % 76.6 H Seg Neuts % (Manual) Lymphocytes % (Manual) Monocytes % (Manual) Eosinophils % (Manual) Nucleated RBC % Seg Neutrophils # Seg Neutrophils # Man Lymphocytes # (Manual) Monocytes # (Manual) Eosinophils # (Manual) PT INR APTT Fibrinogen POC ABG pH ABG pH 7.452 H POC ABG pCO2 POC ABG pO2 ABG pO2 105.5 H ABG HCO3 32.3 H ABG O2 Saturation ABG Base Excess 7.6 H ABG Hemoglobin 6.9 L Oxyhemoglobin Sodium 150 H Potassium 3.3 L Chloride Carbon Dioxide 31 H BUN 56 H Creatinine Glucose 197 H POC Glucose Uric Acid Calcium Phosphorus Magnesium Iron TIBC AST ALT Total Creatine Kinase CK-MB (CK-2) Troponin T NT-Pro-B Natriuret Pep Total Protein Albumin Triglycerides 210 H HDL Cholesterol Folate Urine WBC (Auto) Urine Creatinine Urine Total Protein Vancomycin Trough 06/19/19 06/19/19 06/19/19 05:24 12:18 18:55 WBC RBC Hgb Hct MCV MCH MCHC RDW Plt Count Lymph % (Auto) [place] % (Auto) Eos % (Auto) Lymph # [place] # Eos # Seg Neutrophils % Seg Neuts % (Manual) Lymphocytes % (Manual) Monocytes % (Manual) Eosinophils % (Manual) Nucleated RBC % Seg Neutrophils # Seg Neutrophils # Man Lymphocytes # (Manual) Monocytes # (Manual) Eosinophils # (Manual) PT INR APTT Fibrinogen POC ABG pH ABG pH POC ABG pCO2 POC ABG pO2 ABG pO2 ABG HCO3 ABG O2 Saturation ABG Base Excess ABG Hemoglobin Oxyhemoglobin Sodium Potassium Chloride Carbon Dioxide BUN Creatinine Glucose POC Glucose 176 H 260 H 192 H Uric Acid Calcium Phosphorus Magnesium Iron TIBC AST ALT Total Creatine Kinase CK-MB (CK-2) Troponin T NT-Pro-B Natriuret Pep Total Protein Albumin Triglycerides HDL Cholesterol Folate Urine WBC (Auto) Urine Creatinine Urine Total Protein Vancomycin Trough 06/19/19 06/19/19 06/20/19 22:57 23:46 04:40 WBC RBC 2.79 L Hgb 7.9 L Hct 24.3 L MCV MCH MCHC RDW 19.6 H Plt Count 92 L Lymph % (Auto) 9.2 L [place] % (Auto) 12.0 H Eos % (Auto) 5.2 H Lymph # 0.9 L [place] # 1.2 H Eos # 0.5 H Seg Neutrophils % 73.3 H Seg Neuts % (Manual) Lymphocytes % (Manual) Monocytes % (Manual) Eosinophils % (Manual) Nucleated RBC % Seg Neutrophils # Seg Neutrophils # Man Lymphocytes # (Manual) Monocytes # (Manual) Eosinophils # (Manual) PT INR APTT Fibrinogen POC ABG pH ABG pH POC ABG pCO2 POC ABG pO2 ABG pO2 ABG HCO3 ABG O2 Saturation ABG Base Excess ABG Hemoglobin Oxyhemoglobin Sodium Potassium Chloride Carbon Dioxide BUN Creatinine Glucose POC Glucose 145 H 216 H Uric Acid Calcium Phosphorus Magnesium Iron TIBC AST ALT Total Creatine Kinase CK-MB (CK-2) Troponin T NT-Pro-B Natriuret Pep Total Protein Albumin Triglycerides HDL Cholesterol Folate Urine WBC (Auto) Urine Creatinine Urine Total Protein Vancomycin Trough 06/20/19 06/20/19 06/20/19 04:40 05:40 05:54 WBC RBC Hgb Hct MCV MCH MCHC RDW Plt Count Lymph % (Auto) [place] % (Auto) Eos % (Auto) Lymph # [place] # Eos # Seg Neutrophils % Seg Neuts % (Manual) Lymphocytes % (Manual) Monocytes % (Manual) Eosinophils % (Manual) Nucleated RBC % Seg Neutrophils # Seg Neutrophils # Man Lymphocytes # (Manual) Monocytes # (Manual) Eosinophils # (Manual) PT INR APTT Fibrinogen POC ABG pH ABG pH 7.455 H POC ABG pCO2 POC ABG pO2 ABG pO2 60.9 L ABG HCO3 30.3 H ABG O2 Saturation 92.3 L ABG Base Excess 5.8 H ABG Hemoglobin 8.2 L Oxyhemoglobin 90.1 L Sodium Potassium 3.5 L Chloride Carbon Dioxide BUN 59 H Creatinine Glucose 200 H POC Glucose 190 H Uric Acid Calcium Phosphorus Magnesium 1.60 L Iron TIBC AST ALT Total Creatine Kinase CK-MB (CK-2) Troponin T NT-Pro-B Natriuret Pep Total Protein Albumin Triglycerides HDL Cholesterol Folate Urine WBC (Auto) Urine Creatinine Urine Total Protein Vancomycin Trough 06/20/19 06/20/19 06/20/19 09:12 09:12 12:24 WBC RBC Hgb Hct MCV MCH MCHC RDW Plt Count Lymph % (Auto) [place] % (Auto) Eos % (Auto) Lymph # [place] # Eos # Seg Neutrophils % Seg Neuts % (Manual) Lymphocytes % (Manual) Monocytes % (Manual) Eosinophils % (Manual) Nucleated RBC % Seg Neutrophils # Seg Neutrophils # Man Lymphocytes # (Manual) Monocytes # (Manual) Eosinophils # (Manual) PT INR APTT Fibrinogen POC ABG pH ABG pH POC ABG pCO2 POC ABG pO2 ABG pO2 ABG HCO3 ABG O2 Saturation ABG Base Excess ABG Hemoglobin Oxyhemoglobin Sodium Potassium Chloride Carbon Dioxide BUN Creatinine Glucose POC Glucose 225 H Uric Acid Calcium Phosphorus Magnesium Iron 45 L TIBC 110 L AST ALT Total Creatine Kinase CK-MB (CK-2) Troponin T NT-Pro-B Natriuret Pep Total Protein Albumin Triglycerides HDL Cholesterol Folate 7.01 L Urine WBC (Auto) Urine Creatinine Urine Total Protein Vancomycin Trough 06/20/19 06/20/19 06/20/19 17:42 21:55 23:24 WBC RBC Hgb Hct MCV MCH MCHC RDW Plt Count Lymph % (Auto) [place] % (Auto) Eos % (Auto) Lymph # [place] # Eos # Seg Neutrophils % Seg Neuts % (Manual) Lymphocytes % (Manual) Monocytes % (Manual) Eosinophils % (Manual) Nucleated RBC % Seg Neutrophils # Seg Neutrophils # Man Lymphocytes # (Manual) Monocytes # (Manual) Eosinophils # (Manual) PT INR APTT Fibrinogen POC ABG pH ABG pH POC ABG pCO2 POC ABG pO2 ABG pO2 ABG HCO3 ABG O2 Saturation ABG Base Excess ABG Hemoglobin Oxyhemoglobin Sodium Potassium Chloride Carbon Dioxide BUN Creatinine Glucose POC Glucose 255 H 218 H 215 H Uric Acid Calcium Phosphorus Magnesium Iron TIBC AST ALT Total Creatine Kinase CK-MB (CK-2) Troponin T NT-Pro-B Natriuret Pep Total Protein Albumin Triglycerides HDL Cholesterol Folate Urine WBC (Auto) Urine Creatinine Urine Total Protein Vancomycin Trough 06/21/19 06/21/19 06/21/19 03:32 03:40 05:20 WBC 12.8 H RBC 3.03 L Hgb 8.5 L Hct 26.2 L MCV MCH MCHC RDW 19.4 H Plt Count 131 L Lymph % (Auto) [place] % (Auto) Eos % (Auto) Lymph # [place] # Eos # Seg Neutrophils % Seg Neuts % (Manual) 78.0 H Lymphocytes % (Manual) 5.0 L Monocytes % (Manual) 11.0 H Eosinophils % (Manual) Nucleated RBC % Seg Neutrophils # Seg Neutrophils # Man 10.0 H Lymphocytes # (Manual) 0.6 L Monocytes # (Manual) 1.4 H Eosinophils # (Manual) 0.5 H PT INR APTT Fibrinogen POC ABG pH ABG pH 7.476 H POC ABG pCO2 POC ABG pO2 ABG pO2 162.0 H ABG HCO3 26.8 H ABG O2 Saturation 99.1 H ABG Base Excess 3.1 H ABG Hemoglobin 8.6 L Oxyhemoglobin Sodium Potassium Chloride Carbon Dioxide BUN Creatinine Glucose POC Glucose 202 H Uric Acid Calcium Phosphorus Magnesium Iron TIBC AST ALT Total Creatine Kinase CK-MB (CK-2) Troponin T NT-Pro-B Natriuret Pep Total Protein Albumin Triglycerides HDL Cholesterol Folate Urine WBC (Auto) Urine Creatinine Urine Total Protein Vancomycin Trough 06/21/19 06/21/19 06/21/19 05:20 12:30 18:18 WBC RBC Hgb Hct MCV MCH MCHC RDW Plt Count Lymph % (Auto) [place] % (Auto) Eos % (Auto) Lymph # [place] # Eos # Seg Neutrophils % Seg Neuts % (Manual) Lymphocytes % (Manual) Monocytes % (Manual) Eosinophils % (Manual) Nucleated RBC % Seg Neutrophils # Seg Neutrophils # Man Lymphocytes # (Manual) Monocytes # (Manual) Eosinophils # (Manual) PT INR APTT Fibrinogen POC ABG pH ABG pH POC ABG pCO2 POC ABG pO2 ABG pO2 ABG HCO3 ABG O2 Saturation ABG Base Excess ABG Hemoglobin Oxyhemoglobin Sodium Potassium Chloride 97.7 L Carbon Dioxide BUN 69 H Creatinine Glucose 239 H POC Glucose 176 H 187 H Uric Acid Calcium Phosphorus Magnesium 2.40 H Iron TIBC AST ALT Total Creatine Kinase CK-MB (CK-2) Troponin T NT-Pro-B Natriuret Pep Total Protein Albumin Triglycerides HDL Cholesterol Folate Urine WBC (Auto) Urine Creatinine Urine Total Protein Vancomycin Trough 06/22/19 06/22/19 06/22/19 04:11 05:30 05:30 WBC 12.6 H RBC 3.10 L Hgb 8.7 L Hct 27.0 L MCV MCH MCHC RDW 19.8 H Plt Count Lymph % (Auto) [place] % (Auto) Eos % (Auto) Lymph # [place] # Eos # Seg Neutrophils % Seg Neuts % (Manual) Lymphocytes % (Manual) Monocytes % (Manual) 10.0 H Eosinophils % (Manual) Nucleated RBC % Seg Neutrophils # Seg Neutrophils # Man 8.7 H Lymphocytes # (Manual) Monocytes # (Manual) 1.3 H Eosinophils # (Manual) PT INR APTT Fibrinogen POC ABG pH ABG pH POC ABG pCO2 POC ABG pO2 ABG pO2 ABG HCO3 27.7 H ABG O2 Saturation ABG Base Excess 3.3 H ABG Hemoglobin 8.5 L Oxyhemoglobin 94.9 L Sodium Potassium Chloride Carbon Dioxide BUN 66 H Creatinine Glucose 103 H POC Glucose Uric Acid Calcium Phosphorus Magnesium Iron TIBC AST ALT Total Creatine Kinase CK-MB (CK-2) Troponin T NT-Pro-B Natriuret Pep Total Protein Albumin Triglycerides HDL Cholesterol Folate Urine WBC (Auto) Urine Creatinine Urine Total Protein Vancomycin Trough 06/22/19 06/22/19 06/23/19 17:43 23:25 02:00 WBC RBC Hgb Hct MCV MCH MCHC RDW Plt Count Lymph % (Auto) [place] % (Auto) Eos % (Auto) Lymph # [place] # Eos # Seg Neutrophils % Seg Neuts % (Manual) Lymphocytes % (Manual) Monocytes % (Manual) Eosinophils % (Manual) Nucleated RBC % Seg Neutrophils # Seg Neutrophils # Man Lymphocytes # (Manual) Monocytes # (Manual) Eosinophils # (Manual) PT INR APTT Fibrinogen POC ABG pH ABG pH 7.469 H POC ABG pCO2 POC ABG pO2 ABG pO2 58.7 L ABG HCO3 28.0 H ABG O2 Saturation 94.6 L ABG Base Excess 4.0 H ABG Hemoglobin 7.1 L Oxyhemoglobin 92.2 L Sodium Potassium Chloride Carbon Dioxide BUN Creatinine Glucose POC Glucose 143 H 106 H Uric Acid Calcium Phosphorus Magnesium Iron TIBC AST ALT Total Creatine Kinase CK-MB (CK-2) Troponin T NT-Pro-B Natriuret Pep Total Protein Albumin Triglycerides HDL Cholesterol Folate Urine WBC (Auto) Urine Creatinine Urine Total Protein Vancomycin Trough 06/23/19 06/23/19 06/23/19 05:24 05:24 11:43 WBC 12.6 H RBC 2.96 L Hgb 8.3 L Hct 25.5 L MCV MCH MCHC RDW 20.2 H Plt Count Lymph % (Auto) [place] % (Auto) Eos % (Auto) Lymph # [place] # Eos # Seg Neutrophils % Seg Neuts % (Manual) Lymphocytes % (Manual) 12.0 L Monocytes % (Manual) 11.0 H Eosinophils % (Manual) 6.0 H Nucleated RBC % Seg Neutrophils # Seg Neutrophils # Man 8.8 H Lymphocytes # (Manual) Monocytes # (Manual) 1.4 H Eosinophils # (Manual) 0.8 H PT INR APTT Fibrinogen POC ABG pH ABG pH POC ABG pCO2 POC ABG pO2 ABG pO2 ABG HCO3 ABG O2 Saturation ABG Base Excess ABG Hemoglobin Oxyhemoglobin Sodium 146 H Potassium 3.5 L Chloride Carbon Dioxide BUN 48 H Creatinine Glucose 123 H POC Glucose 120 H Uric Acid Calcium Phosphorus Magnesium Iron TIBC AST ALT Total Creatine Kinase CK-MB (CK-2) Troponin T NT-Pro-B Natriuret Pep Total Protein Albumin Triglycerides HDL Cholesterol Folate Urine WBC (Auto) Urine Creatinine Urine Total Protein Vancomycin Trough 06/23/19 06/24/19 06/24/19 17:39 06:53 06:53 WBC 12.3 H RBC 2.87 L Hgb 8.0 L Hct 24.9 L MCV MCH MCHC RDW 20.5 H Plt Count Lymph % (Auto) [place] % (Auto) 8.8 H Eos % (Auto) 4.4 H Lymph # [place] # 1.1 H Eos # 0.5 H Seg Neutrophils % Seg Neuts % (Manual) Lymphocytes % (Manual) Monocytes % (Manual) Eosinophils % (Manual) Nucleated RBC % Seg Neutrophils # Seg Neutrophils # Man Lymphocytes # (Manual) Monocytes # (Manual) Eosinophils # (Manual) PT INR APTT Fibrinogen POC ABG pH ABG pH POC ABG pCO2 POC ABG pO2 ABG pO2 ABG HCO3 ABG O2 Saturation ABG Base Excess ABG Hemoglobin Oxyhemoglobin Sodium Potassium Chloride 107.1 H Carbon Dioxide 21 L BUN 29 H Creatinine 0.6 L Glucose 117 H POC Glucose 111 H Uric Acid Calcium Phosphorus Magnesium 1.60 L Iron TIBC AST ALT Total Creatine Kinase CK-MB (CK-2) Troponin T NT-Pro-B Natriuret Pep Total Protein Albumin Triglycerides HDL Cholesterol Folate Urine WBC (Auto) Urine Creatinine Urine Total Protein Vancomycin Trough 06/24/19 06/24/19 06/24/19 12:12 18:01 23:20 WBC RBC Hgb Hct MCV MCH MCHC RDW Plt Count Lymph % (Auto) [place] % (Auto) Eos % (Auto) Lymph # [place] # Eos # Seg Neutrophils % Seg Neuts % (Manual) Lymphocytes % (Manual) Monocytes % (Manual) Eosinophils % (Manual) Nucleated RBC % Seg Neutrophils # Seg Neutrophils # Man Lymphocytes # (Manual) Monocytes # (Manual) Eosinophils # (Manual) PT INR APTT Fibrinogen POC ABG pH ABG pH POC ABG pCO2 POC ABG pO2 ABG pO2 ABG HCO3 ABG O2 Saturation ABG Base Excess ABG Hemoglobin Oxyhemoglobin Sodium Potassium Chloride Carbon Dioxide BUN Creatinine Glucose POC Glucose 158 H 133 H 106 H Uric Acid Calcium Phosphorus Magnesium Iron TIBC AST ALT Total Creatine Kinase CK-MB (CK-2) Troponin T NT-Pro-B Natriuret Pep Total Protein Albumin Triglycerides HDL Cholesterol Folate Urine WBC (Auto) Urine Creatinine Urine Total Protein Vancomycin Trough 06/25/19 06/25/19 06/25/19 04:46 04:46 05:36 WBC 12.3 H RBC 2.98 L Hgb 8.3 L Hct 26.4 L MCV MCH MCHC 31 L RDW 20.1 H Plt Count Lymph % (Auto) [place] % (Auto) Eos % (Auto) Lymph # [place] # Eos # Seg Neutrophils % Seg Neuts % (Manual) Lymphocytes % (Manual) Monocytes % (Manual) 10.0 H Eosinophils % (Manual) Nucleated RBC % Seg Neutrophils # Seg Neutrophils # Man 8.1 H Lymphocytes # (Manual) Monocytes # (Manual) 1.2 H Eosinophils # (Manual) PT INR APTT Fibrinogen POC ABG pH ABG pH POC ABG pCO2 POC ABG pO2 ABG pO2 ABG HCO3 ABG O2 Saturation ABG Base Excess ABG Hemoglobin Oxyhemoglobin Sodium 148 H Potassium Chloride 108.0 H Carbon Dioxide BUN 21 H Creatinine 0.7 L Glucose 120 H POC Glucose 121 H Uric Acid Calcium Phosphorus Magnesium Iron TIBC AST ALT Total Creatine Kinase CK-MB (CK-2) Troponin T NT-Pro-B Natriuret Pep Total Protein Albumin Triglycerides HDL Cholesterol Folate Urine WBC (Auto) Urine Creatinine Urine Total Protein Vancomycin Trough 06/25/19 06/25/19 06/26/19 14:02 18:30 00:01 WBC RBC Hgb Hct MCV MCH MCHC RDW Plt Count Lymph % (Auto) [place] % (Auto) Eos % (Auto) Lymph # [place] # Eos # Seg Neutrophils % Seg Neuts % (Manual) Lymphocytes % (Manual) Monocytes % (Manual) Eosinophils % (Manual) Nucleated RBC % Seg Neutrophils # Seg Neutrophils # Man Lymphocytes # (Manual) Monocytes # (Manual) Eosinophils # (Manual) PT INR APTT Fibrinogen POC ABG pH ABG pH POC ABG pCO2 POC ABG pO2 ABG pO2 ABG HCO3 ABG O2 Saturation ABG Base Excess ABG Hemoglobin Oxyhemoglobin Sodium Potassium Chloride Carbon Dioxide BUN Creatinine Glucose POC Glucose 125 H 145 H 142 H Uric Acid Calcium Phosphorus Magnesium Iron TIBC AST ALT Total Creatine Kinase CK-MB (CK-2) Troponin T NT-Pro-B Natriuret Pep Total Protein Albumin Triglycerides HDL Cholesterol Folate Urine WBC (Auto) Urine Creatinine Urine Total Protein Vancomycin Trough 06/26/19 06/26/19 06/26/19 04:43 04:43 05:41 WBC RBC 3.02 L Hgb 8.6 L Hct 27.0 L MCV MCH MCHC RDW 20.4 H Plt Count Lymph % (Auto) [place] % (Auto) Eos % (Auto) Lymph # [place] # Eos # Seg Neutrophils % Seg Neuts % (Manual) Lymphocytes % (Manual) Monocytes % (Manual) 9.0 H Eosinophils % (Manual) Nucleated RBC % Seg Neutrophils # Seg Neutrophils # Man Lymphocytes # (Manual) Monocytes # (Manual) 1.0 H Eosinophils # (Manual) PT INR APTT Fibrinogen POC ABG pH ABG pH POC ABG pCO2 POC ABG pO2 ABG pO2 ABG HCO3 ABG O2 Saturation ABG Base Excess ABG Hemoglobin Oxyhemoglobin Sodium Potassium Chloride Carbon Dioxide BUN Creatinine 0.7 L Glucose 111 H POC Glucose 110 H Uric Acid Calcium Phosphorus Magnesium 1.60 L Iron TIBC AST ALT Total Creatine Kinase CK-MB (CK-2) Troponin T NT-Pro-B Natriuret Pep Total Protein Albumin Triglycerides HDL Cholesterol Folate Urine WBC (Auto) Urine Creatinine Urine Total Protein Vancomycin Trough 06/26/19 06/26/19 11:55 18:07 WBC RBC Hgb Hct MCV MCH MCHC RDW Plt Count Lymph % (Auto) [place] % (Auto) Eos % (Auto) Lymph # [place] # Eos # Seg Neutrophils % Seg Neuts % (Manual) Lymphocytes % (Manual) Monocytes % (Manual) Eosinophils % (Manual) Nucleated RBC % Seg Neutrophils # Seg Neutrophils # Man Lymphocytes # (Manual) Monocytes # (Manual) Eosinophils # (Manual) PT INR APTT Fibrinogen POC ABG pH ABG pH POC ABG pCO2 POC ABG pO2 ABG pO2 ABG HCO3 ABG O2 Saturation ABG Base Excess ABG Hemoglobin Oxyhemoglobin Sodium Potassium Chloride Carbon Dioxide BUN Creatinine Glucose POC Glucose 159 H 107 H Uric Acid Calcium Phosphorus Magnesium Iron TIBC AST ALT Total Creatine Kinase CK-MB (CK-2) Troponin T NT-Pro-B Natriuret Pep Total Protein Albumin Triglycerides HDL Cholesterol Folate Urine WBC (Auto) Urine Creatinine Urine Total Protein Vancomycin Trough
--- NOTE | 2019-06-26 21:16 | Progress Note ---
Assessment and Plan Assessment and plan: 34-year-old man with morbid obesity was brought to the hospital for shortness of breath and insomnia. He was found to have severe hypoxia and bradycardia who then became pulseless, he was cyanotic and he was intubated after receiving CPR with 2 rounds of epinephrine. Patient was intubated, extubated and reintubated, unable to wean vent dependent, underwent trach and PEG on 06/22/2019 --Acute respiratory failure; vent dependent/status post trach and PEG Continue ventilatory support, trach care, nebulizers Pulmonary critical following --Persistent fevers; leukocytosis Internal jugular tunneled hemodialysis catheter removed this morning New set of cultures, blood urine and sputum On Levaquin and Zyvox, reconsulted ID --Obesity hypoventilation syndrome Continue ventilatory support, nebulizers Pulmonary critical following --Status post cardiac arrest mild anoxic brain injury patient's mentation is improved .EEG was negative for seizures and neurology consult appreciated. --Severe malnutrition Dysphasia; dw with his mom, she is agreeable to PEG tube, GS consulted Dietitian input appreciated, continue tube feeds --Anemia of chronic disease : Closely monitor H&H and transfuse as needed. 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 Patient is on Eliquis --Acute kidney injury due to ATN : Requiring dialysis Resolved, nephrology following. --Hypernatremia: Trending down, closely monitor --Hypokalemia hypomagnesemia: Replace as needed Per protocol monitor electrolytes --Morbid obesity; will need weight loss program upon discharge --DVT prophylaxis; scd for now Plan of care discussed with the patient and his nurse Disposition ;LTAC placement Multiple social and financial/insurance issues CCT 35 minutes History Interval history: Patient was examined in ICU this morning medical records, medication list reviewed Consults and recommendations noted Status post tracheostomy on vent, patient is alert and awake Mild distress, vital signs reviewed Hospitalist Physical - Constitutional Vitals: Temp Pulse Resp BP Pulse Ox 99.3 F 98 H 25 H 154/100 98 06/26/19 20:00 06/26/19 20:12 06/26/19 20:10 06/26/19 20:01 06/26/19 21:12 General appearance: Present: mild distress, well-nourished, obese (morbidly obese) - EENT Eyes: Present: PERRL, EOM intact ENT: other (tracheostomy on vent ) - Neck Neck: Present: supple, normal ROM - Respiratory Respiratory effort: normal Respiratory: bilateral: diminished, rhonchi, negative: rales, wheezing - Cardiovascular Rhythm: regular Heart Sounds: Present: S1 & S2 - Extremities Extremities: no ischemia, No edema - Abdominal General gastrointestinal: soft, non-tender, non-distended, normal bowel sounds - Integumentary Integumentary: Present: clear, warm - Psychiatric Psychiatric: other (on vent) - Neurologic Neurologic: other (tracheostomy on vent) Results - Labs CBC & Chem 7: 06/26/19 04:43 06/26/19 04:43 Labs: Laboratory Last Values WBC 11.0 K/mm3 (4.5-11.0) 06/26/19 04:43 RBC 3.02 M/mm3 (3.65-5.03) L 06/26/19 04:43 Hgb 8.6 gm/dl (11.8-15.2) L 06/26/19 04:43 Hct 27.0 % (35.5-45.6) L 06/26/19 04:43 MCV 89 fl (84-94) 06/26/19 04:43 MCH 28 pg (28-32) 06/26/19 04:43 MCHC 32 % (32-34) 06/26/19 04:43 RDW 20.4 % (13.2-15.2) H 06/26/19 04:43 Plt Count 232 K/mm3 (140-440) 06/26/19 04:43 Lymph % (Auto) 23.8 % (13.4-35.0) 06/24/19 06:53 [place] % (Auto) 8.8 % (0.0-7.3) H 06/24/19 06:53 Eos % (Auto) 4.4 % (0.0-4.3) H 06/24/19 06:53 Baso % (Auto) 0.9 % (0.0-1.8) 06/24/19 06:53 Lymph # 2.9 K/mm3 (1.2-5.4) 06/24/19 06:53 [place] # 1.1 K/mm3 (0.0-0.8) H 06/24/19 06:53 Eos # 0.5 K/mm3 (0.0-0.4) H 06/24/19 06:53 Baso # 0.1 K/mm3 (0.0-0.1) 06/24/19 06:53 Add Manual Diff Complete 06/26/19 04:43 Total Counted 100 06/26/19 04:43 Seg Neutrophils % 62.1 % (40.0-70.0) 06/24/19 06:53 Seg Neuts % (Manual) 60.0 % (40.0-70.0) 06/26/19 04:43 Band Neutrophils % 4.0 % 06/26/19 04:43 Lymphocytes % (Manual) 25.0 % (13.4-35.0) 06/26/19 04:43 Reactive Lymphs % (Man) 0 % 06/26/19 04:43 Monocytes % (Manual) 9.0 % (0.0-7.3) H 06/26/19 04:43 Eosinophils % (Manual) 2.0 % (0.0-4.3) 06/26/19 04:43 Basophils % (Manual) 0 % (0.0-1.8) 06/26/19 04:43 Metamyelocytes % 0 % 06/26/19 04:43 Myelocytes % 0 % 06/26/19 04:43 Promyelocytes % 0 % 06/26/19 04:43 Blast Cells % 0 % 06/26/19 04:43 Nucleated RBC % Not Reportable 06/26/19 04:43 Seg Neutrophils # 7.7 K/mm3 (1.8-7.7) 06/24/19 06:53 Seg Neutrophils # Man 6.6 K/mm3 (1.8-7.7) 06/26/19 04:43 Band Neutrophils # 0.4 K/mm3 06/26/19 04:43 Lymphocytes # (Manual) 2.8 K/mm3 (1.2-5.4) 06/26/19 04:43 Abs React Lymphs (Man) 0.0 K/mm3 06/26/19 04:43 Monocytes # (Manual) 1.0 K/mm3 (0.0-0.8) H 06/26/19 04:43 Eosinophils # (Manual) 0.2 K/mm3 (0.0-0.4) 06/26/19 04:43 Basophils # (Manual) 0.0 K/mm3 (0.0-0.1) 06/26/19 04:43 Metamyelocytes # 0.0 K/mm3 06/26/19 04:43 Myelocytes # 0.0 K/mm3 06/26/19 04:43 Promyelocytes # 0.0 K/mm3 06/26/19 04:43 Blast Cells # 0.0 K/mm3 06/26/19 04:43 WBC Morphology Not Reportable 06/26/19 04:43 Hypersegmented Neuts Not Reportable 06/26/19 04:43 Hyposegmented Neuts Not Reportable 06/26/19 04:43 Hypogranular Neuts Not Reportable 06/26/19 04:43 Smudge Cells Not Reportable 06/26/19 04:43 Toxic Granulation Not Reportable 06/26/19 04:43 Toxic Vacuolation Not Reportable 06/26/19 04:43 Dohle Bodies Not Reportable 06/26/19 04:43 Pelger-Huet Anomaly Not Reportable 06/26/19 04:43 Renea Rods Not Reportable 06/26/19 04:43 Platelet Estimate Consistent w auto 06/26/19 04:43 Clumped Platelets Not Reportable 06/26/19 04:43 Plt Clumps, EDTA Not Reportable 06/26/19 04:43 Large Platelets Not Reportable 06/26/19 04:43 Giant Platelets Not Reportable 06/26/19 04:43 Platelet Satelliting Not Reportable 06/26/19 04:43 Plt Morphology Comment Not Reportable 06/26/19 04:43 RBC Morphology Not Reportable 06/26/19 04:43 Dimorphic RBCs Not Reportable 06/26/19 04:43 Polychromasia Not Reportable 06/26/19 04:43 Hypochromasia Not Reportable 06/26/19 04:43 Poikilocytosis Not Reportable 06/26/19 04:43 Anisocytosis 1+ 06/26/19 04:43 Microcytosis Not Reportable 06/26/19 04:43 Macrocytosis Not Reportable 06/26/19 04:43 Spherocytes Not Reportable 06/26/19 04:43 Pappenheimer Bodies Not Reportable 06/26/19 04:43 Sickle Cells Not Reportable 06/26/19 04:43 Target Cells Not Reportable 06/26/19 04:43 Tear Drop Cells Not Reportable 06/26/19 04:43 Ovalocytes Not Reportable 06/26/19 04:43 Stomatocytes 3+ 06/23/19 05:24 Helmet Cells Not Reportable 06/26/19 04:43 [place]-Barre Bodies Not Reportable 06/26/19 04:43 [place] Rings Not Reportable 06/26/19 04:43 [place] Cells Not Reportable 06/26/19 04:43 Bite Cells Not Reportable 06/26/19 04:43 Crenated Cell Not Reportable 06/26/19 04:43 Elliptocytes Rare 06/26/19 04:43 Acanthocytes (Spur) Not Reportable 06/26/19 04:43 Rouleaux Not Reportable 06/26/19 04:43 Hemoglobin C Crystals Not Reportable 06/26/19 04:43 Schistocytes Not Reportable 06/26/19 04:43 Malaria parasites Not Reportable 06/26/19 04:43 Syed Bodies Not Reportable 06/26/19 04:43 Hem Pathologist Commnt No 06/26/19 04:43 PT 15.4 Sec. (12.2-14.9) H 05/01/19 Unknown INR 1.23 (0.87-1.13) H 05/01/19 Unknown APTT 22.7 Sec. (24.2-36.6) L 05/01/19 Unknown Fibrinogen 194 mg/dl (211-480) L 06/17/19 12:45 Heparin Anti-Xa, Unfract Negative (Negative) 06/17/19 12:45 POC ABG pH 7.462 (7.35-7.45) H 06/05/19 03:52 ABG pH 7.469 pH Units (7.350-7.450) H 06/23/19 02:00 POC ABG pCO2 39.8 (35-45) 06/05/19 03:52 ABG pCO2 39.4 mm Hg 06/23/19 02:00 POC ABG pO2 86 (80-105) 06/05/19 03:52 ABG pO2 58.7 mm Hg (80.0-90.0) L 06/23/19 02:00 POC ABG HCO3 28.4 (22-26 mml/L) 06/05/19 03:52 ABG HCO3 28.0 mmol/L (20.0-26.0) H 06/23/19 02:00 POC ABG Total CO2 30 (23-27mmol/L) 06/05/19 03:52 POC ABG O2 Sat 97 06/05/19 03:52 ABG O2 Saturation 94.6 % (95.0-99.0) L 06/23/19 02:00 ABG O2 Content 9.2 (0.0-44) 06/23/19 02:00 POC ABG Base Excess 5 ((-2) - (+3)mmol/L) 06/05/19 03:52 ABG Base Excess 4.0 mmol/L (-2.0-3.0) H 06/23/19 02:00 ABG Hemoglobin 7.1 gm/dl (14.0-18.0) L 06/23/19 02:00 ABG Carboxyhemoglobin 2.0 % (0.0-5.0) 06/23/19 02:00 ABG Methemoglobin 0.5 % (0.0-1.5) 06/23/19 02:00 Oxyhemoglobin 92.2 % (95.0-99.0) L 06/23/19 02:00 FiO2 30 % 06/23/19 02:00 Sodium 141 mmol/L (137-145) 06/26/19 04:43 Potassium 3.8 mmol/L (3.6-5.0) 06/26/19 04:43 Chloride 103.2 mmol/L (98-107) 06/26/19 04:43 Carbon Dioxide 23 mmol/L (22-30) 06/26/19 04:43 Anion Gap 19 mmol/L 06/26/19 04:43 BUN 19 mg/dL (9-20) 06/26/19 04:43 Creatinine 0.7 mg/dL (0.8-1.5) L 06/26/19 04:43 Estimated GFR > 60 ml/min 06/26/19 04:43 BUN/Creatinine Ratio 27 % 06/26/19 04:43 Glucose 111 mg/dL (75-100) H 06/26/19 04:43 POC Glucose 107 (70-105) H 06/26/19 18:07 Osmolality 327 Mosm/kg 05/07/19 13:45 Uric Acid 18.0 mg/dL (3.5-7.6) H 05/07/19 13:45 Calcium 9.2 mg/dL (8.4-10.2) 06/26/19 04:43 Phosphorus 3.70 mg/dL (2.5-4.5) 06/10/19 05:45 Magnesium 1.60 mg/dL (1.7-2.3) L 06/26/19 04:43 Iron 45 ug/dL (49-181) L 06/20/19 09:12 TIBC 110 mcg/dL (250-450) L 06/20/19 09:12 Ferritin 315.2 ng/mL (13.0-400.0) 06/20/19 09:12 Total Bilirubin 0.50 mg/dL (0.1-1.2) 06/08/19 04:20 AST 23 units/L (5-40) 06/08/19 04:20 ALT 66 units/L (7-56) H 06/08/19 04:20 Alkaline Phosphatase 59 units/L (35-129) 06/08/19 04:20 Total Creatine Kinase 131 units/L (55-170) 05/02/19 04:41 CK-MB (CK-2) 5.2 ng/mL (0.0-4.0) H 05/02/19 04:41 CK-MB (CK-2) Rel Index 3.9 (0-4) 05/02/19 04:41 Troponin T 0.067 ng/mL (0.00-0.029) H D 05/02/19 04:41 NT-Pro-B Natriuret Pep 6831 pg/mL (0-450) H 05/01/19 Unknown Total Protein 5.5 g/dL (6.3-8.2) L 06/08/19 04:20 Albumin 2.9 g/dL (3.9-5) L 06/08/19 04:20 Albumin/Globulin Ratio 1.1 % 06/08/19 04:20 Triglycerides 210 mg/dL (2-149) H 06/19/19 04:30 Cholesterol 173 mg/dL (50-199) 05/02/19 00:06 LDL Cholesterol Direct 126 mg/dL (50-130) 05/02/19 00:06 HDL Cholesterol 18 mg/dL (40-59) L 05/02/19 00:06 Cholesterol/HDL Ratio 9.61 % 05/02/19 00:06 Serotonin Release Assay See scanned results 06/17/19 12:45 Vitamin B12 353.0 pg/mL (211-911) 06/20/19 09:12 Folate 7.01 ng/mL (7.3-26.0) L 06/20/19 09:12 Procalcitonin 0.05 ng/mL (<0.15) 06/17/19 12:45 Urine Color Yellow (Yellow) 06/17/19 12:45 Urine Turbidity Slightly-cloudy (Clear) 06/17/19 12:45 Urine pH 5.0 (5.0-7.0) 06/17/19 12:45 Ur Specific [place] 1.013 (1.003-1.030) 06/17/19 12:45 Urine Protein <15 mg/dl mg/dL (Negative) 06/17/19 12:45 Urine Glucose (UA) Neg mg/dL (Negative) 06/17/19 12:45 Urine Ketones Neg mg/dL (Negative) 06/17/19 12:45 Urine Blood Sm (Negative) 06/17/19 12:45 Urine Nitrite Neg (Negative) 06/17/19 12:45 Urine Bilirubin Neg (Negative) 06/17/19 12:45 Urine Urobilinogen < 2.0 mg/dL (<2.0) 06/17/19 12:45 Ur Leukocyte Esterase Neg (Negative) 06/17/19 12:45 Urine WBC (Auto) 2.0 /HPF (0.0-6.0) 06/17/19 12:45 Urine RBC (Auto) 2.0 /HPF (0.0-6.0) 06/17/19 12:45 U Epithel Cells (Auto) < 1.0 /HPF (0-13.0) 06/17/19 12:45 Urine Bacteria (Auto) 1+ /HPF (Negative) 05/20/19 12:00 Uric Acid Crystals 3+ 05/03/19 10:55 Urine Mucus Few /HPF 06/17/19 12:45 Urine Yeast (Budding) 3+ /HPF 05/20/19 12:00 Urine Creatinine 292.8 mg/dL (0.1-20.0) H 05/07/19 22:40 Urine Sodium 11 mmol/L 05/07/19 22:40 Urine Total Protein 269 mg/dL (5-11.8) H 05/07/19 22:40 Vancomycin Trough 20.5 ug/mL (5.0-20.0) H 05/15/19 09:00 Random Vancomycin 11.5 ug/mL (0-40.0) 05/27/19 06:00 AMNA Screen Negative (Negative) 05/07/19 13:45 Heparin-induced Plt Ab Negative (Negative) 06/17/19 12:45 UF Heparin High Dose 13 % Release 06/17/19 12:45 YUNG UFH Low Dose 0.1 8 % Release 06/17/19 12:45 YUNG UFH Low Dose 0.5 7 % Release 06/17/19 12:45 Hepatitis A IgM Ab Non-reactive (NonReactive) 05/07/19 13:45 Hep Bs Antigen Non-reactive (Negative) 05/07/19 13:45 Hep B Core IgM Ab Non-reactive (NonReactive) 05/07/19 13:45 Hepatitis C Antibody Non-reactive (NonReactive) 05/07/19 13:45 Influenza A (Rapid) Negative (Negative) 06/17/19 11:35 Influenza B (Rapid) Negative (Negative) 06/17/19 11:35 Active Medications - Current Medications Current Medications: Generic Name Dose Route Start Last Admin Trade Name Freq PRN Reason Stop Dose Admin Acetaminophen 650 mg 06/24/19 17:00 06/26/19 18:07 Tylenol PO 650 mg Q6H VICKEY Administration Amlodipine Besylate 10 mg 06/25/19 11:00 06/26/19 09:51 Amlodipine PO 10 mg DAILY VICKEY Administration Lipase/Protease/Amylase 1 each 05/14/19 15:01 Pancreaze 10,500 Unit FEEDTUBE PRN PRN For Clogged Feeding Tube Apixaban 2.5 mg 06/23/19 22:00 06/26/19 09:52 Eliquis PO 2.5 mg Q12HR VICKEY Administration Protocol Dextrose 50 gm 05/01/19 20:24 D50w (25gm) Vial IV Q30MIN PRN Hypoglycemia Protocol Famotidine 20 mg 06/17/19 10:00 06/26/19 09:50 Pepcid PO 20 mg BID VICKEY Administration Fentanyl 25 mcg 06/24/19 17:00 06/26/19 14:27 Sublimaze IV 25 mcg Q2HR PRN Administration Pain, Moderate (4-6) Ferrous Sulfate 308 mg 06/18/19 12:00 06/26/19 09:51 Ferrous Sulfate PO 308 mg QDAY VICKEY Administration Hydrochlorothiazide 25 mg 06/26/19 11:00 06/26/19 14:28 Hctz PO 25 mg QDAY VICKEY Administration Hydrophilic Ointment 1 applic 06/16/19 17:34 Vaseline Lip Therapy TP Q2HR PRN Dry Lips Propofol 1,000 mg in 100 mls @ 7.716 mls/hr 06/16/19 21:00 06/23/19 18:39 Diprivan 10 Mg/Ml IV 0 mcg/kg/min TITR VICKEY 0 mls/hr Titration Protocol 5 MCG/KG/MIN Fentanyl Citrate 2,000 mcg in 100 mls @ 12.86 mls/hr 06/17/19 14:00 Fentanyl Drip Premix IV TITR VICKEY Protocol 1 MCG/KG/HR Linezolid 600 mg in 300 mls @ 300 mls/hr 06/24/19 22:00 06/26/19 09:52 Zyvox 600mg/300ml IV 300 mls/hr Q12HR [facility] Administration Protocol Levofloxacin/Dextrose 750 mg in 150 mls @ 100 mls/hr 06/25/19 10:00 06/26/19 09:51 Levaquin 750mg/150ml IV 100 mls/hr Q24HR [facility] Administration Protocol Insulin Human Lispro 0 unit 06/01/19 14:00 06/26/19 18:09 Humalog SUB-Q Not Given Q6HR [facility] Protocol Labetalol HCl 10 mg 06/11/19 22:48 06/26/19 14:28 Labetalol IV 10 mg Q4H PRN Administration BP >170/105; hold for HR <60 Methylprednisolone Sodium Succinate 20 mg 06/22/19 12:00 06/26/19 09:48 Solu-Medrol IV 20 mg Q24HR VICKEY Administration Multi-Ingred Cream/Lotion/Oil/Oint 1 applic 06/16/19 18:00 Artificial Tears Ophth Oint OU Q4HR PRN Dry Eye(s) Multivit/Ca Carb/B Cmplx/FA/Prenat 1 cap 06/23/19 10:00 06/26/19 09:50 Renal Caps PO 1 cap QDAY VICKEY Administration Potassium Chloride 40 meq 06/19/19 10:00 06/26/19 09:49 Potassium Chloride FEEDTUBE 40 meq QDAY VICKEY Administration Simple Syrup 15 ml 05/14/19 15:01 Simple Syrup FEEDTUBE PRN PRN Hypoglycemia Simple Syrup 30 ml 05/14/19 15:01 Simple Syrup FEEDTUBE PRN PRN Hypoglycemia Sodium Bicarbonate 325 mg 05/14/19 15:01 Sodium Bicarbonate FEEDTUBE PRN PRN For Clogged Feeding Tube Nutrition/Malnutrition Assess - Dietary Evaluation Nutrition/Malnutrition Findings: Nutrition Notes Start: 05/04/19 12:54 Freq: Status: Active Protocol: Document 06/25/19 10:38 MK (Rec: 06/25/19 10:51 MK [id number]) Co-Sign 06/25/19 10:38 LP Nutrition Notes Need for Assessment generated from: MD Order Initial or Follow up Assessment Current Diagnosis Acute Kidney Injury,Sepsis, Respiratory Failure Other Pertinent Diagnosis HD Current Diet Nepro 1.8 at 50 ml/hr Labs/Tests Na 148 Pertinent Medications Humalog Humulin Solu-Medrol Height 6 ft 4 in Weight 257.2 kg [place] Body Weight (kg) 91.81 BMI 69.0 Weight Status Morbidly Obese Subjective/Other Information FU for tolerance. Per RN pt tolerating TF. Observed Nepro running at 50 ml/hr. Change to 400 ml flush q4h for hypernatremia. Percent of energy/protein needs met: 100%/100% Burn Absent Trauma Absent GI Symptoms None Current % PO Negligible Minimum of two criteria No Fluid Accumulation Moderate to Severe (severe) #1 Nutrition Diagnosis Inadequate oral intake Diagnosis Progress(for reassessment Continues documentation) Is patient on ventilator? Yes Is Patient Ambulatory and/or Out of Bed No REE-([facility]-confined to bed) 4342.284 Kcal/Kg value to use for calculation 8 Approximate Energy Requirements Using 2057 kcal/Kg Calculation Used for Recommendations Kcal/kg Additional Notes PRO needs: 73 - 91 g (0.8 - 1 g/kg IBW) Fluid needs: 1 ml/kcal Nutrition Intervention Change Diet Order: Continue TF Nutrition Support: Nepro 1.8 at 50 ml/hr Change flush to 400ml q4h for hypernatremia. Kcal 2,160 Protein (gm) 97 Fluid (mL) 872 Goal #1 TF tolerance [ End ] Goal #2 Meet at least 75% kcal/PRO needs via TF Anticipated Discharge Needs: Unable to determine at this time Follow-Up By: 06/28/19 Additional Comments FU for TF tolerance and Na labs
[2019-06-27] MEDS: INSULIN LISPRO 100 UNIT/ML SUB-Q SCH ×4 (00:23→18:09)
[2019-06-27] MEDS: ACETAMINOPHEN 325 MG/10.15 ML ORAL LIQD UNIT DOSE PO SCH ×2 (06:05→06:08)
--- NOTE | 2019-06-27 08:06 | Progress Note ---
Assessment and Plan Assessment and plan: 34-year-old man with morbid obesity was brought to the hospital for shortness of breath and insomnia. He was found to have severe hypoxia and bradycardia who then became pulseless, he was cyanotic and he was intubated after receiving CPR with 2 rounds of epinephrine. Patient was intubated, extubated and reintubated, unable to wean vent dependent, underwent trach and PEG on 06/22/2019 --Acute respiratory failure; vent dependent/status post trach and PEG Continue ventilatory support, trach care, nebulizers Pulmonary critical following --Persistent fevers; leukocytosis Internal jugular tunneled hemodialysis catheter removed this morning New set of cultures, blood urine and sputum On Levaquin and Zyvox, reconsulted ID --Obesity hypoventilation syndrome Continue ventilatory support, nebulizers Pulmonary critical following --Status post cardiac arrest mild anoxic brain injury patient's mentation is improved ., EEG was negative for seizures and neurology consult appreciated. --Severe malnutrition Dysphasia; dw with his mom, she is agreeable to PEG tube, GS consulted Dietitian input appreciated, continue tube feeds --Anemia of chronic disease : Closely monitor H&H and transfuse as needed. 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 Patient is on Eliquis --Acute kidney injury due to ATN : Requiring dialysis Resolved, nephrology following. --Hypernatremia: Trending down, closely monitor --Hypokalemia hypomagnesemia: Replace as needed Per protocol monitor electrolytes --Morbid obesity; will need weight loss program upon discharge --DVT prophylaxis; scd for now Plan of care discussed with the patient and his nurse Disposition ;LTAC placement Multiple social and financial/insurance issues CCT 32 minutes History Interval history: Patient was examined in ICU at the bedside Consults and recommendations noted Status post tracheostomy on vent, patient is alert and awake Mild distress, vital signs reviewed Hospitalist Physical - Constitutional Vitals: Temp Pulse Resp BP Pulse Ox 99.4 F 99 H 30 H 148/79 99 06/27/19 03:42 06/27/19 06:00 06/27/19 06:08 06/27/19 06:15 06/27/19 06:15 General appearance: Present: mild distress, well-nourished, obese (morbidly obese) - EENT Eyes: Present: PERRL, EOM intact - Neck Neck: Present: supple, normal ROM - Respiratory Respiratory effort: normal Respiratory: bilateral: diminished, rhonchi, negative: rales, wheezing - Cardiovascular Rhythm: regular Heart Sounds: Present: S1 & S2 - Extremities Extremities: no ischemia, No edema - Abdominal General gastrointestinal: soft, non-tender, non-distended, normal bowel sounds, other (PEG in place) - Integumentary Integumentary: Present: clear, warm - Psychiatric Psychiatric: appropriate mood/affect, cooperative - Neurologic Neurologic: moves all extremities Results - Labs CBC & Chem 7: 06/26/19 04:43 06/26/19 04:43 Labs: Laboratory Last Values WBC 11.0 K/mm3 (4.5-11.0) 06/26/19 04:43 RBC 3.02 M/mm3 (3.65-5.03) L 06/26/19 04:43 Hgb 8.6 gm/dl (11.8-15.2) L 06/26/19 04:43 Hct 27.0 % (35.5-45.6) L 06/26/19 04:43 MCV 89 fl (84-94) 06/26/19 04:43 MCH 28 pg (28-32) 06/26/19 04:43 MCHC 32 % (32-34) 06/26/19 04:43 RDW 20.4 % (13.2-15.2) H 06/26/19 04:43 Plt Count 232 K/mm3 (140-440) 06/26/19 04:43 Lymph % (Auto) 23.8 % (13.4-35.0) 06/24/19 06:53 Perry % (Auto) 8.8 % (0.0-7.3) H 06/24/19 06:53 Eos % (Auto) 4.4 % (0.0-4.3) H 06/24/19 06:53 Baso % (Auto) 0.9 % (0.0-1.8) 06/24/19 06:53 Lymph # 2.9 K/mm3 (1.2-5.4) 06/24/19 06:53 Perry # 1.1 K/mm3 (0.0-0.8) H 06/24/19 06:53 Eos # 0.5 K/mm3 (0.0-0.4) H 06/24/19 06:53 Baso # 0.1 K/mm3 (0.0-0.1) 06/24/19 06:53 Add Manual Diff Complete 06/26/19 04:43 Total Counted 100 06/26/19 04:43 Seg Neutrophils % 62.1 % (40.0-70.0) 06/24/19 06:53 Seg Neuts % (Manual) 60.0 % (40.0-70.0) 06/26/19 04:43 Band Neutrophils % 4.0 % 06/26/19 04:43 Lymphocytes % (Manual) 25.0 % (13.4-35.0) 06/26/19 04:43 Reactive Lymphs % (Man) 0 % 06/26/19 04:43 Monocytes % (Manual) 9.0 % (0.0-7.3) H 06/26/19 04:43 Eosinophils % (Manual) 2.0 % (0.0-4.3) 06/26/19 04:43 Basophils % (Manual) 0 % (0.0-1.8) 06/26/19 04:43 Metamyelocytes % 0 % 06/26/19 04:43 Myelocytes % 0 % 06/26/19 04:43 Promyelocytes % 0 % 06/26/19 04:43 Blast Cells % 0 % 06/26/19 04:43 Nucleated RBC % Not Reportable 06/26/19 04:43 Seg Neutrophils # 7.7 K/mm3 (1.8-7.7) 06/24/19 06:53 Seg Neutrophils # Man 6.6 K/mm3 (1.8-7.7) 06/26/19 04:43 Band Neutrophils # 0.4 K/mm3 06/26/19 04:43 Lymphocytes # (Manual) 2.8 K/mm3 (1.2-5.4) 06/26/19 04:43 Abs React Lymphs (Man) 0.0 K/mm3 06/26/19 04:43 Monocytes # (Manual) 1.0 K/mm3 (0.0-0.8) H 06/26/19 04:43 Eosinophils # (Manual) 0.2 K/mm3 (0.0-0.4) 06/26/19 04:43 Basophils # (Manual) 0.0 K/mm3 (0.0-0.1) 06/26/19 04:43 Metamyelocytes # 0.0 K/mm3 06/26/19 04:43 Myelocytes # 0.0 K/mm3 06/26/19 04:43 Promyelocytes # 0.0 K/mm3 06/26/19 04:43 Blast Cells # 0.0 K/mm3 06/26/19 04:43 WBC Morphology Not Reportable 06/26/19 04:43 Hypersegmented Neuts Not Reportable 06/26/19 04:43 Hyposegmented Neuts Not Reportable 06/26/19 04:43 Hypogranular Neuts Not Reportable 06/26/19 04:43 Smudge Cells Not Reportable 06/26/19 04:43 Toxic Granulation Not Reportable 06/26/19 04:43 Toxic Vacuolation Not Reportable 06/26/19 04:43 Dohle Bodies Not Reportable 06/26/19 04:43 Pelger-Huet Anomaly Not Reportable 06/26/19 04:43 Renea Rods Not Reportable 06/26/19 04:43 Platelet Estimate Consistent w auto 06/26/19 04:43 Clumped Platelets Not Reportable 06/26/19 04:43 Plt Clumps, EDTA Not Reportable 06/26/19 04:43 Large Platelets Not Reportable 06/26/19 04:43 Giant Platelets Not Reportable 06/26/19 04:43 Platelet Satelliting Not Reportable 06/26/19 04:43 Plt Morphology Comment Not Reportable 06/26/19 04:43 RBC Morphology Not Reportable 06/26/19 04:43 Dimorphic RBCs Not Reportable 06/26/19 04:43 Polychromasia Not Reportable 06/26/19 04:43 Hypochromasia Not Reportable 06/26/19 04:43 Poikilocytosis Not Reportable 06/26/19 04:43 Anisocytosis 1+ 06/26/19 04:43 Microcytosis Not Reportable 06/26/19 04:43 Macrocytosis Not Reportable 06/26/19 04:43 Spherocytes Not Reportable 06/26/19 04:43 Pappenheimer Bodies Not Reportable 06/26/19 04:43 Sickle Cells Not Reportable 06/26/19 04:43 Target Cells Not Reportable 06/26/19 04:43 Tear Drop Cells Not Reportable 06/26/19 04:43 Ovalocytes Not Reportable 06/26/19 04:43 Stomatocytes 3+ 06/23/19 05:24 Helmet Cells Not Reportable 06/26/19 04:43 [place]-Tome Bodies Not Reportable 06/26/19 04:43 Keeler Rings Not Reportable 06/26/19 04:43 [place] Cells Not Reportable 06/26/19 04:43 Bite Cells Not Reportable 06/26/19 04:43 Crenated Cell Not Reportable 06/26/19 04:43 Elliptocytes Rare 06/26/19 04:43 Acanthocytes (Spur) Not Reportable 06/26/19 04:43 Rouleaux Not Reportable 06/26/19 04:43 Hemoglobin C Crystals Not Reportable 06/26/19 04:43 Schistocytes Not Reportable 06/26/19 04:43 Malaria parasites Not Reportable 06/26/19 04:43 Syed Bodies Not Reportable 06/26/19 04:43 Hem Pathologist Commnt No 06/26/19 04:43 PT 15.4 Sec. (12.2-14.9) H 05/01/19 Unknown INR 1.23 (0.87-1.13) H 05/01/19 Unknown APTT 22.7 Sec. (24.2-36.6) L 05/01/19 Unknown Fibrinogen 194 mg/dl (211-480) L 06/17/19 12:45 Heparin Anti-Xa, Unfract Negative (Negative) 06/17/19 12:45 POC ABG pH 7.462 (7.35-7.45) H 06/05/19 03:52 ABG pH 7.469 pH Units (7.350-7.450) H 06/23/19 02:00 POC ABG pCO2 39.8 (35-45) 06/05/19 03:52 ABG pCO2 39.4 mm Hg 06/23/19 02:00 POC ABG pO2 86 (80-105) 06/05/19 03:52 ABG pO2 58.7 mm Hg (80.0-90.0) L 06/23/19 02:00 POC ABG HCO3 28.4 (22-26 mml/L) 06/05/19 03:52 ABG HCO3 28.0 mmol/L (20.0-26.0) H 06/23/19 02:00 POC ABG Total CO2 30 (23-27mmol/L) 06/05/19 03:52 POC ABG O2 Sat 97 06/05/19 03:52 ABG O2 Saturation 94.6 % (95.0-99.0) L 06/23/19 02:00 ABG O2 Content 9.2 (0.0-44) 06/23/19 02:00 POC ABG Base Excess 5 ((-2) - (+3)mmol/L) 06/05/19 03:52 ABG Base Excess 4.0 mmol/L (-2.0-3.0) H 06/23/19 02:00 ABG Hemoglobin 7.1 gm/dl (14.0-18.0) L 06/23/19 02:00 ABG Carboxyhemoglobin 2.0 % (0.0-5.0) 06/23/19 02:00 ABG Methemoglobin 0.5 % (0.0-1.5) 06/23/19 02:00 Oxyhemoglobin 92.2 % (95.0-99.0) L 06/23/19 02:00 FiO2 30 % 06/23/19 02:00 Sodium 141 mmol/L (137-145) 06/26/19 04:43 Potassium 3.8 mmol/L (3.6-5.0) 06/26/19 04:43 Chloride 103.2 mmol/L (98-107) 06/26/19 04:43 Carbon Dioxide 23 mmol/L (22-30) 06/26/19 04:43 Anion Gap 19 mmol/L 06/26/19 04:43 BUN 19 mg/dL (9-20) 06/26/19 04:43 Creatinine 0.7 mg/dL (0.8-1.5) L 06/26/19 04:43 Estimated GFR > 60 ml/min 06/26/19 04:43 BUN/Creatinine Ratio 27 % 06/26/19 04:43 Glucose 111 mg/dL (75-100) H 06/26/19 04:43 POC Glucose 100 (70-105) 06/27/19 05:30 Osmolality 327 Mosm/kg 05/07/19 13:45 Uric Acid 18.0 mg/dL (3.5-7.6) H 05/07/19 13:45 Calcium 9.2 mg/dL (8.4-10.2) 06/26/19 04:43 Phosphorus 3.70 mg/dL (2.5-4.5) 06/10/19 05:45 Magnesium 1.60 mg/dL (1.7-2.3) L 06/26/19 04:43 Iron 45 ug/dL (49-181) L 06/20/19 09:12 TIBC 110 mcg/dL (250-450) L 06/20/19 09:12 Ferritin 315.2 ng/mL (13.0-400.0) 06/20/19 09:12 Total Bilirubin 0.50 mg/dL (0.1-1.2) 06/08/19 04:20 AST 23 units/L (5-40) 06/08/19 04:20 ALT 66 units/L (7-56) H 06/08/19 04:20 Alkaline Phosphatase 59 units/L (35-129) 06/08/19 04:20 Total Creatine Kinase 131 units/L (55-170) 05/02/19 04:41 CK-MB (CK-2) 5.2 ng/mL (0.0-4.0) H 05/02/19 04:41 CK-MB (CK-2) Rel Index 3.9 (0-4) 05/02/19 04:41 Troponin T 0.067 ng/mL (0.00-0.029) H D 05/02/19 04:41 NT-Pro-B Natriuret Pep 6831 pg/mL (0-450) H 05/01/19 Unknown Total Protein 5.5 g/dL (6.3-8.2) L 06/08/19 04:20 Albumin 2.9 g/dL (3.9-5) L 06/08/19 04:20 Albumin/Globulin Ratio 1.1 % 06/08/19 04:20 Triglycerides 210 mg/dL (2-149) H 06/19/19 04:30 Cholesterol 173 mg/dL (50-199) 05/02/19 00:06 LDL Cholesterol Direct 126 mg/dL (50-130) 05/02/19 00:06 HDL Cholesterol 18 mg/dL (40-59) L 05/02/19 00:06 Cholesterol/HDL Ratio 9.61 % 05/02/19 00:06 Serotonin Release Assay See scanned results 06/17/19 12:45 Vitamin B12 353.0 pg/mL (211-911) 06/20/19 09:12 Folate 7.01 ng/mL (7.3-26.0) L 06/20/19 09:12 Procalcitonin 0.05 ng/mL (<0.15) 06/17/19 12:45 Urine Color Yellow (Yellow) 06/17/19 12:45 Urine Turbidity Slightly-cloudy (Clear) 06/17/19 12:45 Urine pH 5.0 (5.0-7.0) 06/17/19 12:45 Ur Specific [place] 1.013 (1.003-1.030) 06/17/19 12:45 Urine Protein <15 mg/dl mg/dL (Negative) 06/17/19 12:45 Urine Glucose (UA) Neg mg/dL (Negative) 06/17/19 12:45 Urine Ketones Neg mg/dL (Negative) 06/17/19 12:45 Urine Blood Sm (Negative) 06/17/19 12:45 Urine Nitrite Neg (Negative) 06/17/19 12:45 Urine Bilirubin Neg (Negative) 06/17/19 12:45 Urine Urobilinogen < 2.0 mg/dL (<2.0) 06/17/19 12:45 Ur Leukocyte Esterase Neg (Negative) 06/17/19 12:45 Urine WBC (Auto) 2.0 /HPF (0.0-6.0) 06/17/19 12:45 Urine RBC (Auto) 2.0 /HPF (0.0-6.0) 06/17/19 12:45 U Epithel Cells (Auto) < 1.0 /HPF (0-13.0) 06/17/19 12:45 Urine Bacteria (Auto) 1+ /HPF (Negative) 05/20/19 12:00 Uric Acid Crystals 3+ 05/03/19 10:55 Urine Mucus Few /HPF 06/17/19 12:45 Urine Yeast (Budding) 3+ /HPF 05/20/19 12:00 Urine Creatinine 292.8 mg/dL (0.1-20.0) H 05/07/19 22:40 Urine Sodium 11 mmol/L 05/07/19 22:40 Urine Total Protein 269 mg/dL (5-11.8) H 05/07/19 22:40 Vancomycin Trough 20.5 ug/mL (5.0-20.0) H 05/15/19 09:00 Random Vancomycin 11.5 ug/mL (0-40.0) 05/27/19 06:00 AMNA Screen Negative (Negative) 05/07/19 13:45 Heparin-induced Plt Ab Negative (Negative) 06/17/19 12:45 UF Heparin High Dose 13 % Release 06/17/19 12:45 YUNG UFH Low Dose 0.1 8 % Release 06/17/19 12:45 YUNG UFH Low Dose 0.5 7 % Release 06/17/19 12:45 Hepatitis A IgM Ab Non-reactive (NonReactive) 05/07/19 13:45 Hep Bs Antigen Non-reactive (Negative) 05/07/19 13:45 Hep B Core IgM Ab Non-reactive (NonReactive) 05/07/19 13:45 Hepatitis C Antibody Non-reactive (NonReactive) 05/07/19 13:45 Influenza A (Rapid) Negative (Negative) 06/17/19 11:35 Influenza B (Rapid) Negative (Negative) 06/17/19 11:35 Active Medications - Current Medications Current Medications: Generic Name Dose Route Start Last Admin Trade Name Freq PRN Reason Stop Dose Admin Amlodipine Besylate 10 mg 06/25/19 11:00 06/26/19 09:51 Amlodipine PO 10 mg DAILY VICKEY Administration Lipase/Protease/Amylase 1 each 05/14/19 15:01 Pancreaze 10,500 Unit FEEDTUBE PRN PRN For Clogged Feeding Tube Apixaban 2.5 mg 06/23/19 22:00 06/26/19 21:39 Eliquis PO 2.5 mg Q12HR VICKEY Administration Protocol Dextrose 50 gm 05/01/19 20:24 D50w (25gm) Vial IV Q30MIN PRN Hypoglycemia Protocol Famotidine 20 mg 06/17/19 10:00 06/26/19 21:38 Pepcid PO 20 mg BID VICKEY Administration Fentanyl 25 mcg 06/24/19 17:00 06/26/19 14:27 Sublimaze IV 25 mcg Q2HR PRN Administration Pain, Moderate (4-6) Ferrous Sulfate 308 mg 06/18/19 12:00 06/26/19 09:51 Ferrous Sulfate PO 308 mg QDAY VICKEY Administration Hydrochlorothiazide 25 mg 06/26/19 11:00 06/26/19 14:28 Hctz PO 25 mg QDAY VICKEY Administration Hydrophilic Ointment 1 applic 06/16/19 17:34 Vaseline Lip Therapy TP Q2HR PRN Dry Lips Linezolid 600 mg in 300 mls @ 300 mls/hr 06/24/19 22:00 06/26/19 21:38 Zyvox 600mg/300ml IV 300 mls/hr Q12HR [facility] Administration Protocol Levofloxacin/Dextrose 750 mg in 150 mls @ 100 mls/hr 06/25/19 10:00 06/26/19 09:51 Levaquin 750mg/150ml IV 100 mls/hr Q24HR [facility] Administration Protocol Insulin Human Lispro 0 unit 06/01/19 14:00 06/27/19 05:30 Humalog SUB-Q Not Given Q6HR [facility] Protocol Labetalol HCl 10 mg 06/11/19 22:48 06/26/19 21:37 Labetalol IV 10 mg Q4H PRN Administration BP >170/105; hold for HR <60 Multi-Ingred Cream/Lotion/Oil/Oint 1 applic 06/16/19 18:00 Artificial Tears Ophth Oint OU Q4HR PRN Dry Eye(s) Multivit/Ca Carb/B Cmplx/FA/Prenat 1 cap 06/23/19 10:00 06/26/19 09:50 Renal Caps PO 1 cap QDAY VICKEY Administration Potassium Chloride 40 meq 06/19/19 10:00 06/26/19 09:49 Potassium Chloride FEEDTUBE 40 meq QDAY VICKEY Administration Prednisone 10 mg 06/27/19 10:00 Deltasone PO QDAY VICKEY Simple Syrup 15 ml 05/14/19 15:01 Simple Syrup FEEDTUBE PRN PRN Hypoglycemia Simple Syrup 30 ml 05/14/19 15:01 Simple Syrup FEEDTUBE PRN PRN Hypoglycemia Sodium Bicarbonate 325 mg 05/14/19 15:01 Sodium Bicarbonate FEEDTUBE PRN PRN For Clogged Feeding Tube Nutrition/Malnutrition Assess - Dietary Evaluation Nutrition/Malnutrition Findings: Nutrition Notes Start: 05/04/19 12:54 Freq: Status: Active Protocol: Document 06/25/19 10:38 MK (Rec: 06/25/19 10:51 MK [id number]) Co-Sign 06/25/19 10:38 LP Nutrition Notes Need for Assessment generated from: MD Order Initial or Follow up Assessment Current Diagnosis Acute Kidney Injury,Sepsis, Respiratory Failure Other Pertinent Diagnosis HD Current Diet Nepro 1.8 at 50 ml/hr Labs/Tests Na 148 Pertinent Medications Humalog Humulin Solu-Medrol Height 6 ft 4 in Weight 257.2 kg [place] Body Weight (kg) 91.81 BMI 69.0 Weight Status Morbidly Obese Subjective/Other Information FU for tolerance. Per RN pt tolerating TF. Observed Nepro running at 50 ml/hr. Change to 400 ml flush q4h for hypernatremia. Percent of energy/protein needs met: 100%/100% Burn Absent Trauma Absent GI Symptoms None Current % PO Negligible Minimum of two criteria No Fluid Accumulation Moderate to Severe (severe) #1 Nutrition Diagnosis Inadequate oral intake Diagnosis Progress(for reassessment Continues documentation) Is patient on ventilator? Yes Is Patient Ambulatory and/or Out of Bed No REE-([facility]-confined to bed) 4342.284 Kcal/Kg value to use for calculation 8 Approximate Energy Requirements Using 2057 kcal/Kg Calculation Used for Recommendations Kcal/kg Additional Notes PRO needs: 73 - 91 g (0.8 - 1 g/kg IBW) Fluid needs: 1 ml/kcal Nutrition Intervention Change Diet Order: Continue TF Nutrition Support: Nepro 1.8 at 50 ml/hr Change flush to 400ml q4h for hypernatremia. Kcal 2,160 Protein (gm) 97 Fluid (mL) 872 Goal #1 TF tolerance [ End ] Goal #2 Meet at least 75% kcal/PRO needs via TF Anticipated Discharge Needs: Unable to determine at this time Follow-Up By: 06/28/19 Additional Comments FU for TF tolerance and Na labs
[2019-06-27] MEDS: FERROUS SULFATE 308 MG (62mg Elemental Iron) / 7 ML ELIXIR PO SCH (09:01)
[2019-06-27] MEDS: predniSONE 10 MG TAB PO SCH (09:02)
[2019-06-27] MEDS: FOLIC ACID/VIT B COMP W-C 1 MG (RENAL CAPS) PO SCH (09:02)
[2019-06-27] MEDS: POTASSIUM CHLORIDE 20 MEQ PACKET FEEDTUBE SCH (09:02)
[2019-06-27] MEDS: amLODIPine 10 MG TAB PO SCH (09:02)
[2019-06-27] MEDS: APIXABAN 2.5 MG TAB PO SCH ×2 (09:02→21:34)
[2019-06-27] MEDS: FAMOTIDINE 20 MG TAB PO SCH ×2 (09:03→21:33)
[2019-06-27] MEDS: hydroCHLOROthiazide 25 MG TAB PO SCH (09:56)
[2019-06-27] MEDS: SCOPOLAMINE TRANSDERMAL PATCH 72 HR TD SCH (09:56)
[2019-06-27] MEDS: LINEZOLID 600 MG TAB PO SCH ×2 (09:56→21:33)
--- NOTE | 2019-06-27 10:00 | Progress Note ---
Assessment and Plan 34 y/o male with acute hypoxic, hypercapnic respiratory failure now with trach and uncontrolled hypertension. 06/27/2019: Forgot to write order to leave on T-piece indefinitely. Done today. Spoke with neuro and ask them to amend their note. The patient is not in a "semi-coma". he is awake and alert and will follow commands. BP is still elevated. Will need an additional agent. 06/26/2019: Will discontinue vent from room. patient was placed on vent last night. Not sure why. Will place orders for continued T-piece. Appears he was doing well with no issues. If tolerates being off vent tonight, transition to step down tomorrow. Increase HCTZ to 25 06/25/2019: Continue T-piece today as tolerated. Only rest of vent if needed. If not needed tonight then will discontinue vent from room. Spoke with IR, and they will remove Perm cath today as this could be a cause of fevers. Follow up cultures and ID recs. Will increase Free H2O to [id number]. Change steroids to 10 PO starting tomorrow morning. Added scheduled BP meds. 06/24/2019: Will attempt T-piece later today, if tolerates, then will continue trial indefinitely. PT/OT will need to start seeing him again. Will drop steroids to 10 daily (PO) starting Friday morning. 06/23/2019: PSV all day today and tomorrow. Will start T-piece either tomorrow or Friday. Tolerating Feeds 06/22/2019: Patient scheduled for OR today. Plan as outlined in Dr. Saez's note from yesterday. Discussed with patient again this am. Really appreciate surgery help with this and the promptness of procedure. Will follow up post-op later today. 06/21/2019: Unfortunately re-intubated last week. Will need Trach and Peg, but I doubt peg will happen secondary to his size. Will discuss with surgery and maybe they can just put in a number 6 XLT from the start. I think he will get off the vent relatively quickly and can start to eat. This trach will be indefinite. I have explained this to him. I have not seen his family at the bedside during this admission but Im told they come in the evenings. 06/12/2019: Started HCTZ 50 daily and Labetalol 100 TID. Will increase Labetalol to 200 TID. Already on Clonidine patch. Continue Minoxidil. Will start to wean drip. PT/OT. Feeds through NG now that this is in place. Will need speech re-evaluation. Will order NT suctioning at least [id number] for the next 24 hours. 06/11/2019: Bipap at night and PRN. Na levels are increasing. Agree with D5W. Unable to place DH, several nurses tried. Will ask speech to come by and reassess now that patient is more willing to cooperate. . Continue PT/OT, sat up on side of bed yesterday. Continue IMCU monitoring for now. As stated below, patient was intubated for 37 days. CCT 31 minutes. Subjective Date of service: 06/27/19 Principal diagnosis: anemia - LOw PLT Interval history: No acute events. Stayed on T-piece until about 9pm. Placed on vent for rest. Awake and alert. Follows commands. Objective Vital Signs - 12hr 06/26/19 06/26/19 06/26/19 22:00 22:15 22:31 Temperature Pulse Rate 82 89 89 Pulse Rate [ From Monitor] Respiratory 21 10 L 12 Rate Blood Pressure 166/103 166/103 136/86 O2 Sat by Pulse 94 94 95 Oximetry O2 Sat by Pulse Oximetry [ Assessment] 06/26/19 06/26/19 06/26/19 22:45 23:01 23:15 Temperature Pulse Rate 77 84 101 H Pulse Rate [ From Monitor] Respiratory 19 13 16 Rate Blood Pressure 136/86 136/86 128/87 O2 Sat by Pulse 97 99 100 Oximetry O2 Sat by Pulse Oximetry [ Assessment] 06/26/19 06/26/19 06/26/19 23:31 23:45 23:56 Temperature 99.4 F Pulse Rate 85 76 Pulse Rate [ From Monitor] Respiratory 17 15 Rate Blood Pressure 133/108 133/108 O2 Sat by Pulse 99 100 Oximetry O2 Sat by Pulse Oximetry [ Assessment] 06/27/19 06/27/19 06/27/19 00:01 00:15 00:20 Temperature Pulse Rate 79 85 Pulse Rate [ From Monitor] Respiratory 17 19 Rate Blood Pressure 160/109 160/109 O2 Sat by Pulse 98 100 99 Oximetry O2 Sat by Pulse Oximetry [ Assessment] 02/07/1506/27/19 06/27/19 00:31 00:45 01:00 Temperature Pulse Rate 82 92 H 110 H Pulse Rate [ From Monitor] Respiratory 26 H 36 H 23 Rate Blood Pressure 153/105 179/97 172/100 O2 Sat by Pulse 97 88 81 L Oximetry O2 Sat by Pulse Oximetry [ Assessment] 06/27/19 06/27/19 06/27/19 01:13 01:15 01:30 Temperature Pulse Rate 82 96 H 91 H Pulse Rate [ 81 From Monitor] Respiratory 22 22 34 H Rate Blood Pressure 164/97 155/99 O2 Sat by Pulse 100 97 96 Oximetry O2 Sat by Pulse Oximetry [ Assessment] 06/27/19 06/27/19 06/27/19 01:45 02:00 02:15 Temperature Pulse Rate 94 H 86 Pulse Rate [ From Monitor] Respiratory 22 25 H Rate Blood Pressure 165/113 163/106 164/93 O2 Sat by Pulse 77 L 90 94 Oximetry O2 Sat by Pulse Oximetry [ Assessment] 06/27/19 06/27/19 06/27/19 02:30 02:45 03:00 Temperature Pulse Rate 88 87 93 H Pulse Rate [ From Monitor] Respiratory 16 27 H 22 Rate Blood Pressure 159/102 163/97 146/88 O2 Sat by Pulse 95 96 99 Oximetry O2 Sat by Pulse Oximetry [ Assessment] 06/27/19 06/27/19 06/27/19 03:13 03:15 03:30 Temperature Pulse Rate 93 H 94 H 93 H Pulse Rate [ 81 From Monitor] Respiratory 22 27 H 31 H Rate Blood Pressure 161/104 156/104 O2 Sat by Pulse 100 97 97 Oximetry O2 Sat by Pulse Oximetry [ Assessment] 06/27/19 06/27/19 06/27/19 03:42 03:45 04:00 Temperature 99.4 F Pulse Rate 91 H 89 Pulse Rate [ From Monitor] Respiratory 34 H 18 Rate Blood Pressure 152/103 162/85 O2 Sat by Pulse 97 97 Oximetry O2 Sat by Pulse Oximetry [ Assessment] 06/27/19 06/27/19 06/27/19 04:15 04:25 04:31 Temperature Pulse Rate 93 H 93 H 87 Pulse Rate [ 81 From Monitor] Respiratory 15 22 14 Rate Blood Pressure 161/104 146/101 O2 Sat by Pulse 99 100 100 Oximetry O2 Sat by Pulse Oximetry [ Assessment] 06/27/19 06/27/19 06/27/19 04:45 05:00 05:15 Temperature Pulse Rate 92 H 91 H 96 H Pulse Rate [ From Monitor] Respiratory 17 20 27 H Rate Blood Pressure 146/101 164/89 186/97 O2 Sat by Pulse 100 100 92 Oximetry O2 Sat by Pulse Oximetry [ Assessment] 06/27/19 06/27/19 06/27/19 05:30 05:45 06:00 Temperature Pulse Rate 87 97 H 99 H Pulse Rate [ From Monitor] Respiratory 16 12 27 H Rate Blood Pressure 158/87 175/93 146/90 O2 Sat by Pulse 95 93 99 Oximetry O2 Sat by Pulse Oximetry [ Assessment] 06/27/19 06/27/19 06/27/19 06:05 06:08 06:15 Temperature Pulse Rate Pulse Rate [ From Monitor] Respiratory 30 H 30 H Rate Blood Pressure 148/79 O2 Sat by Pulse 99 Oximetry O2 Sat by Pulse Oximetry [ Assessment] 06/27/19 06/27/19 06/27/19 08:21 09:02 09:03 Temperature Pulse Rate 92 H 92 H Pulse Rate [ From Monitor] Respiratory Rate Blood Pressure 209/91 209/91 O2 Sat by Pulse Oximetry O2 Sat by Pulse 99 Oximetry [ Assessment] Constitutional: other (morbidly obese male, critically ill on vent) Eyes: non-icteric ENT: oropharynx moist Neck: other (extremely large in circumference) Effort: normal Ascultation: Bilateral: diminished breath sounds (secondary to body habitus), rhonchi Cardiovascular: regular rate and rhythm (no mrg) Gastrointestinal: normoactive bowel sounds, soft, non-tender, other (obese) Integumentary: other (L hand is wrapped) Extremities: no cyanosis, pink and warm, other (1+ generalized edema) Neurologic: normal mental status, non-focal exam Psychiatric: mood appropriate, affect normal CBC and BMP: 06/26/19 04:43 06/26/19 04:43 ABG, PT/INR, D-dimer: ABG POC ABG pH 7.462 (7.35-7.45) H 06/05/19 03:52 ABG pH 7.469 pH Units (7.350-7.450) H 06/23/19 02:00 POC ABG pCO2 39.8 (35-45) 06/05/19 03:52 ABG pCO2 39.4 mm Hg 06/23/19 02:00 POC ABG pO2 86 (80-105) 06/05/19 03:52 ABG pO2 58.7 mm Hg (80.0-90.0) L 06/23/19 02:00 POC ABG HCO3 28.4 (22-26 mml/L) 06/05/19 03:52 POC ABG Total CO2 30 (23-27mmol/L) 06/05/19 03:52 POC ABG O2 Sat 97 06/05/19 03:52 ABG O2 Saturation 94.6 % (95.0-99.0) L 06/23/19 02:00 PT/INR, D-dimer PT 15.4 Sec. (12.2-14.9) H 05/01/19 Unknown INR 1.23 (0.87-1.13) H 05/01/19 Unknown Abnormal lab findings: Abnormal Labs 05/01/19 05/01/19 05/01/19 17:50 19:26 22:36 WBC RBC Hgb Hct MCV MCH MCHC RDW Plt Count Lymph % (Auto) [place] % (Auto) Eos % (Auto) Lymph # [place] # Eos # Seg Neutrophils % Seg Neuts % (Manual) Lymphocytes % (Manual) Monocytes % (Manual) Eosinophils % (Manual) Nucleated RBC % Seg Neutrophils # Seg Neutrophils # Man Lymphocytes # (Manual) Monocytes # (Manual) Eosinophils # (Manual) PT INR APTT Fibrinogen POC ABG pH 7.272 L 7.331 L ABG pH POC ABG pCO2 52.8 H POC ABG pO2 ABG pO2 ABG HCO3 ABG O2 Saturation ABG Base Excess ABG Hemoglobin Oxyhemoglobin Sodium 136 L Potassium 6.5 H* Chloride 97.2 L Carbon Dioxide BUN 60 H Creatinine Glucose 113 H POC Glucose Uric Acid Calcium Phosphorus Magnesium 2.40 H Iron TIBC AST 139 H ALT 154 H Total Creatine Kinase CK-MB (CK-2) Troponin T NT-Pro-B Natriuret Pep Total Protein Albumin 3.8 L Triglycerides HDL Cholesterol Folate Urine WBC (Auto) Urine Creatinine Urine Total Protein Vancomycin Trough 05/01/19 05/01/19 05/01/19 Unknown Unknown Unknown WBC 16.1 H RBC Hgb Hct MCV MCH MCHC RDW 17.2 H Plt Count Lymph % (Auto) [place] % (Auto) 9.6 H Eos % (Auto) Lymph # [place] # 1.5 H Eos # Seg Neutrophils % 73.0 H Seg Neuts % (Manual) Lymphocytes % (Manual) Monocytes % (Manual) Eosinophils % (Manual) Nucleated RBC % Seg Neutrophils # 11.7 H Seg Neutrophils # Man Lymphocytes # (Manual) Monocytes # (Manual) Eosinophils # (Manual) PT 15.4 H INR 1.23 H APTT 22.7 L Fibrinogen POC ABG pH ABG pH POC ABG pCO2 POC ABG pO2 ABG pO2 ABG HCO3 ABG O2 Saturation ABG Base Excess ABG Hemoglobin Oxyhemoglobin Sodium Potassium Chloride Carbon Dioxide BUN Creatinine Glucose POC Glucose Uric Acid Calcium Phosphorus Magnesium Iron TIBC AST ALT Total Creatine Kinase CK-MB (CK-2) Troponin T NT-Pro-B Natriuret Pep 6831 H Total Protein Albumin Triglycerides HDL Cholesterol Folate Urine WBC (Auto) Urine Creatinine Urine Total Protein Vancomycin Trough 05/01/19 05/02/19 05/02/19 Unknown 00:06 00:06 WBC RBC Hgb Hct MCV MCH MCHC RDW Plt Count Lymph % (Auto) [place] % (Auto) Eos % (Auto) Lymph # [place] # Eos # Seg Neutrophils % Seg Neuts % (Manual) Lymphocytes % (Manual) Monocytes % (Manual) Eosinophils % (Manual) Nucleated RBC % Seg Neutrophils # Seg Neutrophils # Man Lymphocytes # (Manual) Monocytes # (Manual) Eosinophils # (Manual) PT INR APTT Fibrinogen POC ABG pH ABG pH POC ABG pCO2 POC ABG pO2 ABG pO2 ABG HCO3 ABG O2 Saturation ABG Base Excess ABG Hemoglobin Oxyhemoglobin Sodium Potassium Chloride Carbon Dioxide BUN Creatinine Glucose POC Glucose Uric Acid Calcium Phosphorus 4.90 H Magnesium Iron TIBC AST ALT Total Creatine Kinase 226 H CK-MB (CK-2) 5.7 H Troponin T 0.044 H NT-Pro-B Natriuret Pep Total Protein Albumin Triglycerides 182 H HDL Cholesterol 18 L Folate Urine WBC (Auto) Urine Creatinine Urine Total Protein Vancomycin Trough 05/02/19 05/02/19 05/02/19 02:08 04:40 04:41 WBC 17.6 H RBC Hgb Hct MCV MCH 27 L MCHC RDW 17.4 H Plt Count Lymph % (Auto) 10.2 L [place] % (Auto) 11.0 H Eos % (Auto) Lymph # [place] # 1.9 H Eos # Seg Neutrophils % 78.0 H Seg Neuts % (Manual) Lymphocytes % (Manual) Monocytes % (Manual) Eosinophils % (Manual) Nucleated RBC % Seg Neutrophils # 13.8 H Seg Neutrophils # Man Lymphocytes # (Manual) Monocytes # (Manual) Eosinophils # (Manual) PT INR APTT Fibrinogen POC ABG pH ABG pH POC ABG pCO2 46.8 H POC ABG pO2 63 L ABG pO2 ABG HCO3 ABG O2 Saturation ABG Base Excess ABG Hemoglobin Oxyhemoglobin Sodium Potassium Chloride 96.3 L Carbon Dioxide BUN 63 H Creatinine 1.7 H Glucose POC Glucose Uric Acid Calcium Phosphorus Magnesium Iron TIBC AST ALT Total Creatine Kinase CK-MB (CK-2) Troponin T NT-Pro-B Natriuret Pep Total Protein Albumin Triglycerides HDL Cholesterol Folate Urine WBC (Auto) Urine Creatinine Urine Total Protein Vancomycin Trough 05/02/19 05/02/19 05/02/19 04:41 04:41 16:05 WBC RBC Hgb Hct MCV MCH MCHC RDW Plt Count Lymph % (Auto) [place] % (Auto) Eos % (Auto) Lymph # [place] # Eos # Seg Neutrophils % Seg Neuts % (Manual) Lymphocytes % (Manual) Monocytes % (Manual) Eosinophils % (Manual) Nucleated RBC % Seg Neutrophils # Seg Neutrophils # Man Lymphocytes # (Manual) Monocytes # (Manual) Eosinophils # (Manual) PT INR APTT Fibrinogen POC ABG pH ABG pH POC ABG pCO2 POC ABG pO2 ABG pO2 66.6 L ABG HCO3 31.9 H ABG O2 Saturation 92.5 L ABG Base Excess 5.8 H ABG Hemoglobin 13.3 L Oxyhemoglobin 90.6 L Sodium Potassium Chloride 97.2 L Carbon Dioxide BUN 61 H Creatinine 1.8 H Glucose POC Glucose Uric Acid Calcium Phosphorus Magnesium Iron TIBC AST ALT Total Creatine Kinase CK-MB (CK-2) 5.2 H Troponin T 0.067 H D NT-Pro-B Natriuret Pep Total Protein Albumin Triglycerides HDL Cholesterol Folate Urine WBC (Auto) Urine Creatinine Urine Total Protein Vancomycin Trough 05/02/19 05/03/19 05/03/19 20:39 04:35 05:05 WBC 11.8 H RBC Hgb Hct MCV MCH 27 L MCHC 31 L RDW 17.2 H Plt Count Lymph % (Auto) [place] % (Auto) Eos % (Auto) Lymph # [place] # Eos # Seg Neutrophils % Seg Neuts % (Manual) Lymphocytes % (Manual) Monocytes % (Manual) Eosinophils % (Manual) Nucleated RBC % Seg Neutrophils # Seg Neutrophils # Man Lymphocytes # (Manual) Monocytes # (Manual) Eosinophils # (Manual) PT INR APTT Fibrinogen POC ABG pH ABG pH POC ABG pCO2 53.6 H 54.0 H POC ABG pO2 55 L 63 L ABG pO2 ABG HCO3 ABG O2 Saturation ABG Base Excess ABG Hemoglobin Oxyhemoglobin Sodium Potassium Chloride Carbon Dioxide BUN Creatinine Glucose POC Glucose Uric Acid Calcium Phosphorus Magnesium Iron TIBC AST ALT Total Creatine Kinase CK-MB (CK-2) Troponin T NT-Pro-B Natriuret Pep Total Protein Albumin Triglycerides HDL Cholesterol Folate Urine WBC (Auto) Urine Creatinine Urine Total Protein Vancomycin Trough 05/03/19 05/03/19 05/03/19 05:05 10:55 16:48 WBC RBC Hgb Hct MCV MCH MCHC RDW Plt Count Lymph % (Auto) [place] % (Auto) Eos % (Auto) Lymph # [place] # Eos # Seg Neutrophils % Seg Neuts % (Manual) Lymphocytes % (Manual) Monocytes % (Manual) Eosinophils % (Manual) Nucleated RBC % Seg Neutrophils # Seg Neutrophils # Man Lymphocytes # (Manual) Monocytes # (Manual) Eosinophils # (Manual) PT INR APTT Fibrinogen POC ABG pH 7.604 H ABG pH POC ABG pCO2 POC ABG pO2 58 L ABG pO2 ABG HCO3 ABG O2 Saturation ABG Base Excess ABG Hemoglobin Oxyhemoglobin Sodium Potassium Chloride Carbon Dioxide BUN 52 H Creatinine 1.9 H Glucose 103 H POC Glucose Uric Acid Calcium Phosphorus Magnesium Iron TIBC AST ALT Total Creatine Kinase CK-MB (CK-2) Troponin T NT-Pro-B Natriuret Pep Total Protein Albumin Triglycerides HDL Cholesterol Folate Urine WBC (Auto) 33.0 H Urine Creatinine Urine Total Protein Vancomycin Trough 05/04/19 05/04/19 05/04/19 04:49 06:50 06:50 WBC 16.0 H RBC Hgb Hct MCV MCH 27 L MCHC 31 L RDW 17.8 H Plt Count Lymph % (Auto) [place] % (Auto) Eos % (Auto) Lymph # [place] # Eos # Seg Neutrophils % Seg Neuts % (Manual) Lymphocytes % (Manual) Monocytes % (Manual) Eosinophils % (Manual) Nucleated RBC % Seg Neutrophils # Seg Neutrophils # Man Lymphocytes # (Manual) Monocytes # (Manual) Eosinophils # (Manual) PT INR APTT Fibrinogen POC ABG pH 7.273 L ABG pH POC ABG pCO2 POC ABG pO2 ABG pO2 ABG HCO3 ABG O2 Saturation ABG Base Excess ABG Hemoglobin Oxyhemoglobin Sodium 148 H Potassium 5.5 H Chloride Carbon Dioxide BUN 53 H Creatinine 3.3 H D Glucose 106 H POC Glucose Uric Acid Calcium 8.3 L Phosphorus Magnesium Iron TIBC AST ALT Total Creatine Kinase CK-MB (CK-2) Troponin T NT-Pro-B Natriuret Pep Total Protein Albumin Triglycerides HDL Cholesterol Folate Urine WBC (Auto) Urine Creatinine Urine Total Protein Vancomycin Trough 05/05/19 05/05/19 05/05/19 00:05 04:30 05:00 WBC RBC Hgb Hct MCV MCH MCHC RDW Plt Count Lymph % (Auto) [place] % (Auto) Eos % (Auto) Lymph # [place] # Eos # Seg Neutrophils % Seg Neuts % (Manual) Lymphocytes % (Manual) Monocytes % (Manual) Eosinophils % (Manual) Nucleated RBC % Seg Neutrophils # Seg Neutrophils # Man Lymphocytes # (Manual) Monocytes # (Manual) Eosinophils # (Manual) PT INR APTT Fibrinogen POC ABG pH 7.225 L ABG pH POC ABG pCO2 > 70 H POC ABG pO2 ABG pO2 ABG HCO3 ABG O2 Saturation ABG Base Excess ABG Hemoglobin Oxyhemoglobin Sodium 151 H Potassium 5.1 H Chloride Carbon Dioxide BUN 64 H Creatinine 3.5 H Glucose 117 H POC Glucose 141 H Uric Acid Calcium 7.5 L Phosphorus Magnesium Iron TIBC AST 93 H ALT 65 H Total Creatine Kinase CK-MB (CK-2) Troponin T NT-Pro-B Natriuret Pep Total Protein Albumin 2.9 L Triglycerides HDL Cholesterol Folate Urine WBC (Auto) Urine Creatinine Urine Total Protein Vancomycin Trough 05/05/19 05/05/19 05/05/19 05:00 12:02 17:46 WBC 12.0 H RBC Hgb 11.3 L Hct MCV MCH 27 L MCHC 30 L RDW 18.4 H Plt Count Lymph % (Auto) 7.9 L [place] % (Auto) 10.2 H Eos % (Auto) Lymph # 1.0 L [place] # 1.2 H Eos # Seg Neutrophils % 80.8 H Seg Neuts % (Manual) Lymphocytes % (Manual) Monocytes % (Manual) Eosinophils % (Manual) Nucleated RBC % Seg Neutrophils # 9.7 H Seg Neutrophils # Man Lymphocytes # (Manual) Monocytes # (Manual) Eosinophils # (Manual) PT INR APTT Fibrinogen POC ABG pH ABG pH POC ABG pCO2 POC ABG pO2 ABG pO2 ABG HCO3 ABG O2 Saturation ABG Base Excess ABG Hemoglobin Oxyhemoglobin Sodium Potassium Chloride Carbon Dioxide BUN Creatinine Glucose POC Glucose 125 H 112 H Uric Acid Calcium Phosphorus Magnesium Iron TIBC AST ALT Total Creatine Kinase CK-MB (CK-2) Troponin T NT-Pro-B Natriuret Pep Total Protein Albumin Triglycerides HDL Cholesterol Folate Urine WBC (Auto) Urine Creatinine Urine Total Protein Vancomycin Trough 05/05/19 05/06/19 05/06/19 23:42 03:58 04:45 WBC 11.4 H RBC Hgb 10.7 L Hct 34.2 L MCV MCH 27 L MCHC 31 L RDW 16.9 H Plt Count Lymph % (Auto) [place] % (Auto) Eos % (Auto) Lymph # [place] # Eos # Seg Neutrophils % Seg Neuts % (Manual) Lymphocytes % (Manual) Monocytes % (Manual) Eosinophils % (Manual) Nucleated RBC % Seg Neutrophils # Seg Neutrophils # Man Lymphocytes # (Manual) Monocytes # (Manual) Eosinophils # (Manual) PT INR APTT Fibrinogen POC ABG pH ABG pH POC ABG pCO2 62.4 H POC ABG pO2 111 H ABG pO2 ABG HCO3 ABG O2 Saturation ABG Base Excess ABG Hemoglobin Oxyhemoglobin Sodium Potassium Chloride Carbon Dioxide BUN Creatinine Glucose POC Glucose 128 H Uric Acid Calcium Phosphorus Magnesium Iron TIBC AST ALT Total Creatine Kinase CK-MB (CK-2) Troponin T NT-Pro-B Natriuret Pep Total Protein Albumin Triglycerides HDL Cholesterol Folate Urine WBC (Auto) Urine Creatinine Urine Total Protein Vancomycin Trough 05/06/19 05/06/19 05/06/19 04:45 05:33 12:30 WBC RBC Hgb Hct MCV MCH MCHC RDW Plt Count Lymph % (Auto) [place] % (Auto) Eos % (Auto) Lymph # [place] # Eos # Seg Neutrophils % Seg Neuts % (Manual) Lymphocytes % (Manual) Monocytes % (Manual) Eosinophils % (Manual) Nucleated RBC % Seg Neutrophils # Seg Neutrophils # Man Lymphocytes # (Manual) Monocytes # (Manual) Eosinophils # (Manual) PT INR APTT Fibrinogen POC ABG pH ABG pH POC ABG pCO2 POC ABG pO2 ABG pO2 ABG HCO3 ABG O2 Saturation ABG Base Excess ABG Hemoglobin Oxyhemoglobin Sodium 149 H Potassium Chloride Carbon Dioxide 31 H BUN 67 H Creatinine 3.2 H Glucose 125 H POC Glucose 117 H 116 H Uric Acid Calcium 7.5 L Phosphorus Magnesium Iron TIBC AST ALT Total Creatine Kinase CK-MB (CK-2) Troponin T NT-Pro-B Natriuret Pep Total Protein Albumin Triglycerides HDL Cholesterol Folate Urine WBC (Auto) Urine Creatinine Urine Total Protein Vancomycin Trough 05/06/19 05/06/19 05/07/19 18:34 23:16 05:22 WBC RBC Hgb Hct MCV MCH MCHC RDW Plt Count Lymph % (Auto) [place] % (Auto) Eos % (Auto) Lymph # [place] # Eos # Seg Neutrophils % Seg Neuts % (Manual) Lymphocytes % (Manual) Monocytes % (Manual) Eosinophils % (Manual) Nucleated RBC % Seg Neutrophils # Seg Neutrophils # Man Lymphocytes # (Manual) Monocytes # (Manual) Eosinophils # (Manual) PT INR APTT Fibrinogen POC ABG pH ABG pH POC ABG pCO2 POC ABG pO2 ABG pO2 ABG HCO3 ABG O2 Saturation ABG Base Excess ABG Hemoglobin Oxyhemoglobin Sodium Potassium Chloride Carbon Dioxide BUN Creatinine Glucose POC Glucose 128 H 143 H 166 H Uric Acid Calcium Phosphorus Magnesium Iron TIBC AST ALT Total Creatine Kinase CK-MB (CK-2) Troponin T NT-Pro-B Natriuret Pep Total Protein Albumin Triglycerides HDL Cholesterol Folate Urine WBC (Auto) Urine Creatinine Urine Total Protein Vancomycin Trough 05/07/19 05/07/19 05/07/19 06:33 07:03 09:35 WBC RBC Hgb Hct MCV MCH MCHC RDW Plt Count Lymph % (Auto) [place] % (Auto) Eos % (Auto) Lymph # [place] # Eos # Seg Neutrophils % Seg Neuts % (Manual) Lymphocytes % (Manual) Monocytes % (Manual) Eosinophils % (Manual) Nucleated RBC % Seg Neutrophils # Seg Neutrophils # Man Lymphocytes # (Manual) Monocytes # (Manual) Eosinophils # (Manual) PT INR APTT Fibrinogen POC ABG pH 7.263 L 7.288 L ABG pH POC ABG pCO2 POC ABG pO2 51 L 56 L ABG pO2 ABG HCO3 ABG O2 Saturation ABG Base Excess ABG Hemoglobin Oxyhemoglobin Sodium Potassium Chloride Carbon Dioxide BUN 76 H Creatinine 3.2 H Glucose 147 H POC Glucose Uric Acid Calcium 7.9 L Phosphorus Magnesium Iron TIBC AST ALT Total Creatine Kinase CK-MB (CK-2) Troponin T NT-Pro-B Natriuret Pep Total Protein Albumin Triglycerides HDL Cholesterol Folate Urine WBC (Auto) Urine Creatinine Urine Total Protein Vancomycin Trough 05/07/19 05/07/19 05/07/19 09:35 12:17 13:45 WBC 13.4 H RBC Hgb 11.6 L Hct MCV MCH 27 L MCHC 31 L RDW 17.5 H Plt Count Lymph % (Auto) [place] % (Auto) Eos % (Auto) Lymph # [place] # Eos # Seg Neutrophils % Seg Neuts % (Manual) Lymphocytes % (Manual) Monocytes % (Manual) Eosinophils % (Manual) Nucleated RBC % Seg Neutrophils # Seg Neutrophils # Man Lymphocytes # (Manual) Monocytes # (Manual) Eosinophils # (Manual) PT INR APTT Fibrinogen POC ABG pH ABG pH POC ABG pCO2 POC ABG pO2 ABG pO2 ABG HCO3 ABG O2 Saturation ABG Base Excess ABG Hemoglobin Oxyhemoglobin Sodium Potassium Chloride Carbon Dioxide BUN Creatinine Glucose POC Glucose 130 H Uric Acid 18.0 H Calcium Phosphorus Magnesium Iron TIBC AST ALT Total Creatine Kinase CK-MB (CK-2) Troponin T NT-Pro-B Natriuret Pep Total Protein Albumin Triglycerides HDL Cholesterol Folate Urine WBC (Auto) Urine Creatinine Urine Total Protein Vancomycin Trough 05/07/19 05/07/19 05/08/19 17:39 22:40 05:06 WBC RBC Hgb Hct MCV MCH MCHC RDW Plt Count Lymph % (Auto) [place] % (Auto) Eos % (Auto) Lymph # [place] # Eos # Seg Neutrophils % Seg Neuts % (Manual) Lymphocytes % (Manual) Monocytes % (Manual) Eosinophils % (Manual) Nucleated RBC % Seg Neutrophils # Seg Neutrophils # Man Lymphocytes # (Manual) Monocytes # (Manual) Eosinophils # (Manual) PT INR APTT Fibrinogen POC ABG pH ABG pH POC ABG pCO2 POC ABG pO2 ABG pO2 ABG HCO3 ABG O2 Saturation ABG Base Excess ABG Hemoglobin Oxyhemoglobin Sodium Potassium Chloride Carbon Dioxide BUN Creatinine Glucose POC Glucose 116 H 148 H Uric Acid Calcium Phosphorus Magnesium Iron TIBC AST ALT Total Creatine Kinase CK-MB (CK-2) Troponin T NT-Pro-B Natriuret Pep Total Protein Albumin Triglycerides HDL Cholesterol Folate Urine WBC (Auto) Urine Creatinine 292.8 H Urine Total Protein 269 H Vancomycin Trough 05/08/19 05/08/19 05/08/19 05:32 11:28 13:48 WBC RBC Hgb Hct MCV MCH MCHC RDW Plt Count Lymph % (Auto) [place] % (Auto) Eos % (Auto) Lymph # [place] # Eos # Seg Neutrophils % Seg Neuts % (Manual) Lymphocytes % (Manual) Monocytes % (Manual) Eosinophils % (Manual) Nucleated RBC % Seg Neutrophils # Seg Neutrophils # Man Lymphocytes # (Manual) Monocytes # (Manual) Eosinophils # (Manual) PT INR APTT Fibrinogen POC ABG pH ABG pH POC ABG pCO2 45.4 H POC ABG pO2 64 L ABG pO2 ABG HCO3 ABG O2 Saturation ABG Base Excess ABG Hemoglobin Oxyhemoglobin Sodium Potassium Chloride Carbon Dioxide BUN 73 H Creatinine 2.7 H Glucose 127 H POC Glucose 107 H Uric Acid Calcium 7.6 L Phosphorus Magnesium Iron TIBC AST ALT Total Creatine Kinase CK-MB (CK-2) Troponin T NT-Pro-B Natriuret Pep Total Protein Albumin Triglycerides HDL Cholesterol Folate Urine WBC (Auto) Urine Creatinine Urine Total Protein Vancomycin Trough 05/08/19 05/09/19 05/09/19 17:48 04:50 04:53 WBC RBC 3.07 L Hgb 8.5 L D Hct 29.3 L D MCV 96 H MCH MCHC 29 L RDW 18.1 H Plt Count Lymph % (Auto) [place] % (Auto) Eos % (Auto) Lymph # [place] # Eos # Seg Neutrophils % Seg Neuts % (Manual) Lymphocytes % (Manual) Monocytes % (Manual) Eosinophils % (Manual) Nucleated RBC % Seg Neutrophils # Seg Neutrophils # Man Lymphocytes # (Manual) Monocytes # (Manual) Eosinophils # (Manual) PT INR APTT Fibrinogen POC ABG pH 7.316 L ABG pH POC ABG pCO2 66.0 H POC ABG pO2 69 L ABG pO2 ABG HCO3 ABG O2 Saturation ABG Base Excess ABG Hemoglobin Oxyhemoglobin Sodium Potassium Chloride Carbon Dioxide BUN Creatinine Glucose POC Glucose 155 H Uric Acid Calcium Phosphorus Magnesium Iron TIBC AST ALT Total Creatine Kinase CK-MB (CK-2) Troponin T NT-Pro-B Natriuret Pep Total Protein Albumin Triglycerides HDL Cholesterol Folate Urine WBC (Auto) Urine Creatinine Urine Total Protein Vancomycin Trough 05/09/19 05/09/19 05/09/19 05:46 07:24 12:10 WBC RBC Hgb Hct MCV MCH MCHC RDW Plt Count Lymph % (Auto) [place] % (Auto) Eos % (Auto) Lymph # [place] # Eos # Seg Neutrophils % Seg Neuts % (Manual) Lymphocytes % (Manual) Monocytes % (Manual) Eosinophils % (Manual) Nucleated RBC % Seg Neutrophils # Seg Neutrophils # Man Lymphocytes # (Manual) Monocytes # (Manual) Eosinophils # (Manual) PT INR APTT Fibrinogen POC ABG pH ABG pH POC ABG pCO2 POC ABG pO2 ABG pO2 ABG HCO3 ABG O2 Saturation ABG Base Excess ABG Hemoglobin Oxyhemoglobin Sodium Potassium Chloride Carbon Dioxide BUN 73 H Creatinine 2.4 H Glucose 153 H POC Glucose 123 H 148 H Uric Acid Calcium 8.2 L Phosphorus Magnesium Iron TIBC AST 45 H ALT Total Creatine Kinase CK-MB (CK-2) Troponin T NT-Pro-B Natriuret Pep Total Protein 6.0 L Albumin 1.9 L Triglycerides HDL Cholesterol Folate Urine WBC (Auto) Urine Creatinine Urine Total Protein Vancomycin Trough 05/09/19 05/09/19 05/10/19 18:23 23:26 04:52 WBC RBC Hgb Hct MCV MCH MCHC RDW Plt Count Lymph % (Auto) [place] % (Auto) Eos % (Auto) Lymph # [place] # Eos # Seg Neutrophils % Seg Neuts % (Manual) Lymphocytes % (Manual) Monocytes % (Manual) Eosinophils % (Manual) Nucleated RBC % Seg Neutrophils # Seg Neutrophils # Man Lymphocytes # (Manual) Monocytes # (Manual) Eosinophils # (Manual) PT INR APTT Fibrinogen POC ABG pH 7.305 L ABG pH POC ABG pCO2 62.6 H POC ABG pO2 ABG pO2 ABG HCO3 ABG O2 Saturation ABG Base Excess ABG Hemoglobin Oxyhemoglobin Sodium Potassium Chloride Carbon Dioxide BUN Creatinine Glucose POC Glucose 147 H 121 H Uric Acid Calcium Phosphorus Magnesium Iron TIBC AST ALT Total Creatine Kinase CK-MB (CK-2) Troponin T NT-Pro-B Natriuret Pep Total Protein Albumin Triglycerides HDL Cholesterol Folate Urine WBC (Auto) Urine Creatinine Urine Total Protein Vancomycin Trough 05/10/19 05/10/19 05/10/19 05:00 05:00 05:50 WBC RBC Hgb 10.3 L Hct 33.7 L MCV MCH 27 L MCHC 31 L RDW 17.0 H Plt Count Lymph % (Auto) [place] % (Auto) Eos % (Auto) Lymph # [place] # Eos # Seg Neutrophils % Seg Neuts % (Manual) Lymphocytes % (Manual) Monocytes % (Manual) Eosinophils % (Manual) Nucleated RBC % Seg Neutrophils # Seg Neutrophils # Man Lymphocytes # (Manual) Monocytes # (Manual) Eosinophils # (Manual) PT INR APTT Fibrinogen POC ABG pH ABG pH POC ABG pCO2 POC ABG pO2 ABG pO2 ABG HCO3 ABG O2 Saturation ABG Base Excess ABG Hemoglobin Oxyhemoglobin Sodium 147 H Potassium Chloride Carbon Dioxide BUN 70 H Creatinine 2.6 H Glucose 155 H POC Glucose 158 H Uric Acid Calcium 8.2 L Phosphorus Magnesium Iron TIBC AST ALT Total Creatine Kinase CK-MB (CK-2) Troponin T NT-Pro-B Natriuret Pep Total Protein 6.1 L Albumin 2.5 L Triglycerides HDL Cholesterol Folate Urine WBC (Auto) Urine Creatinine Urine Total Protein Vancomycin Trough 05/10/19 05/11/19 05/11/19 13:14 07:26 11:40 WBC RBC Hgb Hct MCV MCH MCHC RDW Plt Count Lymph % (Auto) [place] % (Auto) Eos % (Auto) Lymph # [place] # Eos # Seg Neutrophils % Seg Neuts % (Manual) Lymphocytes % (Manual) Monocytes % (Manual) Eosinophils % (Manual) Nucleated RBC % Seg Neutrophils # Seg Neutrophils # Man Lymphocytes # (Manual) Monocytes # (Manual) Eosinophils # (Manual) PT INR APTT Fibrinogen POC ABG pH ABG pH POC ABG pCO2 48.0 H POC ABG pO2 58 L ABG pO2 ABG HCO3 ABG O2 Saturation ABG Base Excess ABG Hemoglobin Oxyhemoglobin Sodium 147 H Potassium Chloride 107.2 H Carbon Dioxide BUN 67 H Creatinine 2.6 H Glucose 121 H POC Glucose 159 H Uric Acid Calcium Phosphorus Magnesium Iron TIBC AST ALT Total Creatine Kinase CK-MB (CK-2) Troponin T NT-Pro-B Natriuret Pep Total Protein Albumin Triglycerides HDL Cholesterol Folate Urine WBC (Auto) Urine Creatinine Urine Total Protein Vancomycin Trough 05/11/19 05/11/19 05/12/19 18:13 23:46 04:40 WBC RBC Hgb Hct MCV MCH MCHC RDW Plt Count Lymph % (Auto) [place] % (Auto) Eos % (Auto) Lymph # [place] # Eos # Seg Neutrophils % Seg Neuts % (Manual) Lymphocytes % (Manual) Monocytes % (Manual) Eosinophils % (Manual) Nucleated RBC % Seg Neutrophils # Seg Neutrophils # Man Lymphocytes # (Manual) Monocytes # (Manual) Eosinophils # (Manual) PT INR APTT Fibrinogen POC ABG pH ABG pH 7.264 L POC ABG pCO2 POC ABG pO2 ABG pO2 66.8 L ABG HCO3 31.0 H ABG O2 Saturation 92.0 L ABG Base Excess ABG Hemoglobin 10.3 L Oxyhemoglobin 90.1 L Sodium Potassium Chloride Carbon Dioxide BUN Creatinine Glucose POC Glucose 120 H 121 H Uric Acid Calcium Phosphorus Magnesium Iron TIBC AST ALT Total Creatine Kinase CK-MB (CK-2) Troponin T NT-Pro-B Natriuret Pep Total Protein Albumin Triglycerides HDL Cholesterol Folate Urine WBC (Auto) Urine Creatinine Urine Total Protein Vancomycin Trough 05/12/19 05/12/19 05/12/19 04:45 04:45 11:14 WBC RBC Hgb 10.2 L Hct 32.4 L MCV MCH MCHC 31 L RDW 17.2 H Plt Count Lymph % (Auto) [place] % (Auto) Eos % (Auto) Lymph # [place] # Eos # Seg Neutrophils % Seg Neuts % (Manual) Lymphocytes % (Manual) Monocytes % (Manual) Eosinophils % (Manual) Nucleated RBC % Seg Neutrophils # Seg Neutrophils # Man Lymphocytes # (Manual) Monocytes # (Manual) Eosinophils # (Manual) PT INR APTT Fibrinogen POC ABG pH 7.284 L ABG pH POC ABG pCO2 67.8 H POC ABG pO2 ABG pO2 ABG HCO3 ABG O2 Saturation ABG Base Excess ABG Hemoglobin Oxyhemoglobin Sodium Potassium Chloride Carbon Dioxide BUN 63 H Creatinine 2.4 H Glucose 110 H POC Glucose Uric Acid Calcium Phosphorus Magnesium Iron TIBC AST ALT Total Creatine Kinase CK-MB (CK-2) Troponin T NT-Pro-B Natriuret Pep Total Protein Albumin Triglycerides HDL Cholesterol Folate Urine WBC (Auto) Urine Creatinine Urine Total Protein Vancomycin Trough 05/12/19 05/12/19 05/13/19 11:44 23:11 04:30 WBC RBC Hgb Hct MCV MCH MCHC RDW Plt Count Lymph % (Auto) [place] % (Auto) Eos % (Auto) Lymph # [place] # Eos # Seg Neutrophils % Seg Neuts % (Manual) Lymphocytes % (Manual) Monocytes % (Manual) Eosinophils % (Manual) Nucleated RBC % Seg Neutrophils # Seg Neutrophils # Man Lymphocytes # (Manual) Monocytes # (Manual) Eosinophils # (Manual) PT INR APTT Fibrinogen POC ABG pH ABG pH 7.288 L POC ABG pCO2 POC ABG pO2 ABG pO2 109.7 H ABG HCO3 30.9 H ABG O2 Saturation ABG Base Excess 3.2 H ABG Hemoglobin 9.6 L Oxyhemoglobin Sodium Potassium Chloride Carbon Dioxide BUN Creatinine Glucose POC Glucose 126 H 147 H Uric Acid Calcium Phosphorus Magnesium Iron TIBC AST ALT Total Creatine Kinase CK-MB (CK-2) Troponin T NT-Pro-B Natriuret Pep Total Protein Albumin Triglycerides HDL Cholesterol Folate Urine WBC (Auto) Urine Creatinine Urine Total Protein Vancomycin Trough 05/13/19 05/13/19 05/14/19 06:27 11:58 04:00 WBC RBC 3.16 L Hgb 9.3 L Hct 27.9 L MCV MCH MCHC RDW 17.1 H Plt Count Lymph % (Auto) [place] % (Auto) Eos % (Auto) Lymph # [place] # Eos # Seg Neutrophils % Seg Neuts % (Manual) Lymphocytes % (Manual) Monocytes % (Manual) Eosinophils % (Manual) Nucleated RBC % Seg Neutrophils # Seg Neutrophils # Man Lymphocytes # (Manual) Monocytes # (Manual) Eosinophils # (Manual) PT INR APTT Fibrinogen POC ABG pH ABG pH POC ABG pCO2 POC ABG pO2 ABG pO2 ABG HCO3 ABG O2 Saturation ABG Base Excess ABG Hemoglobin Oxyhemoglobin Sodium Potassium Chloride Carbon Dioxide BUN Creatinine Glucose POC Glucose 113 H 130 H Uric Acid Calcium Phosphorus Magnesium Iron TIBC AST ALT Total Creatine Kinase CK-MB (CK-2) Troponin T NT-Pro-B Natriuret Pep Total Protein Albumin Triglycerides HDL Cholesterol Folate Urine WBC (Auto) Urine Creatinine Urine Total Protein Vancomycin Trough 05/14/19 05/14/19 05/14/19 04:00 04:34 05:32 WBC RBC Hgb Hct MCV MCH MCHC RDW Plt Count Lymph % (Auto) [place] % (Auto) Eos % (Auto) Lymph # [place] # Eos # Seg Neutrophils % Seg Neuts % (Manual) Lymphocytes % (Manual) Monocytes % (Manual) Eosinophils % (Manual) Nucleated RBC % Seg Neutrophils # Seg Neutrophils # Man Lymphocytes # (Manual) Monocytes # (Manual) Eosinophils # (Manual) PT INR APTT Fibrinogen POC ABG pH 7.328 L ABG pH POC ABG pCO2 61.7 H POC ABG pO2 ABG pO2 ABG HCO3 ABG O2 Saturation ABG Base Excess ABG Hemoglobin Oxyhemoglobin Sodium 135 L D Potassium Chloride Carbon Dioxide BUN 57 H Creatinine 2.2 H Glucose 115 H POC Glucose 115 H Uric Acid Calcium 8.1 L Phosphorus Magnesium Iron TIBC AST ALT Total Creatine Kinase CK-MB (CK-2) Troponin T NT-Pro-B Natriuret Pep Total Protein Albumin Triglycerides HDL Cholesterol Folate Urine WBC (Auto) Urine Creatinine Urine Total Protein Vancomycin Trough 05/14/19 05/15/19 05/15/19 12:11 05:10 05:24 WBC RBC Hgb Hct MCV MCH MCHC RDW Plt Count Lymph % (Auto) [place] % (Auto) Eos % (Auto) Lymph # [place] # Eos # Seg Neutrophils % Seg Neuts % (Manual) Lymphocytes % (Manual) Monocytes % (Manual) Eosinophils % (Manual) Nucleated RBC % Seg Neutrophils # Seg Neutrophils # Man Lymphocytes # (Manual) Monocytes # (Manual) Eosinophils # (Manual) PT INR APTT Fibrinogen POC ABG pH ABG pH 7.342 L POC ABG pCO2 POC ABG pO2 ABG pO2 79.1 L ABG HCO3 28.2 H ABG O2 Saturation ABG Base Excess ABG Hemoglobin 7.0 L Oxyhemoglobin 94.4 L Sodium Potassium Chloride Carbon Dioxide BUN Creatinine Glucose POC Glucose 110 H 116 H Uric Acid Calcium Phosphorus Magnesium Iron TIBC AST ALT Total Creatine Kinase CK-MB (CK-2) Troponin T NT-Pro-B Natriuret Pep Total Protein Albumin Triglycerides HDL Cholesterol Folate Urine WBC (Auto) Urine Creatinine Urine Total Protein Vancomycin Trough 05/15/19 05/15/19 05/16/19 09:00 18:12 04:50 WBC RBC Hgb Hct MCV MCH MCHC RDW Plt Count Lymph % (Auto) [place] % (Auto) Eos % (Auto) Lymph # [place] # Eos # Seg Neutrophils % Seg Neuts % (Manual) Lymphocytes % (Manual) Monocytes % (Manual) Eosinophils % (Manual) Nucleated RBC % Seg Neutrophils # Seg Neutrophils # Man Lymphocytes # (Manual) Monocytes # (Manual) Eosinophils # (Manual) PT INR APTT Fibrinogen POC ABG pH ABG pH 7.250 L POC ABG pCO2 POC ABG pO2 ABG pO2 76.4 L ABG HCO3 ABG O2 Saturation 94.6 L ABG Base Excess -3.1 L ABG Hemoglobin 9.7 L Oxyhemoglobin 92.4 L Sodium Potassium Chloride Carbon Dioxide BUN Creatinine Glucose POC Glucose 110 H Uric Acid Calcium Phosphorus Magnesium Iron TIBC AST ALT Total Creatine Kinase CK-MB (CK-2) Troponin T NT-Pro-B Natriuret Pep Total Protein Albumin Triglycerides HDL Cholesterol Folate Urine WBC (Auto) Urine Creatinine Urine Total Protein Vancomycin Trough 20.5 H 05/16/19 05/16/19 05/17/19 05:50 05:50 04:20 WBC RBC 3.36 L 3.44 L Hgb 9.4 L 9.3 L Hct 29.1 L 29.7 L MCV MCH 27 L MCHC 31 L RDW 17.6 H 17.6 H Plt Count Lymph % (Auto) [place] % (Auto) Eos % (Auto) Lymph # [place] # Eos # Seg Neutrophils % Seg Neuts % (Manual) 77.0 H Lymphocytes % (Manual) 5.0 L Monocytes % (Manual) Eosinophils % (Manual) 10.0 H Nucleated RBC % Seg Neutrophils # Seg Neutrophils # Man Lymphocytes # (Manual) 0.5 L Monocytes # (Manual) Eosinophils # (Manual) 0.9 H PT INR APTT Fibrinogen POC ABG pH ABG pH POC ABG pCO2 POC ABG pO2 ABG pO2 ABG HCO3 ABG O2 Saturation ABG Base Excess ABG Hemoglobin Oxyhemoglobin Sodium Potassium Chloride Carbon Dioxide BUN 83 H Creatinine 4.4 H D Glucose 118 H POC Glucose Uric Acid Calcium Phosphorus Magnesium Iron TIBC AST ALT Total Creatine Kinase CK-MB (CK-2) Troponin T NT-Pro-B Natriuret Pep Total Protein Albumin Triglycerides HDL Cholesterol Folate Urine WBC (Auto) Urine Creatinine Urine Total Protein Vancomycin Trough 05/17/19 05/17/19 05/18/19 04:30 Unknown 01:50 WBC RBC 3.49 L Hgb 9.4 L Hct 30.0 L MCV MCH 27 L MCHC 31 L RDW 17.8 H Plt Count Lymph % (Auto) 7.9 L [place] % (Auto) 15.4 H Eos % (Auto) 6.3 H Lymph # 0.7 L [place] # 1.4 H Eos # 0.6 H Seg Neutrophils % 70.2 H Seg Neuts % (Manual) Lymphocytes % (Manual) Monocytes % (Manual) Eosinophils % (Manual) Nucleated RBC % Seg Neutrophils # Seg Neutrophils # Man Lymphocytes # (Manual) Monocytes # (Manual) Eosinophils # (Manual) PT INR APTT Fibrinogen POC ABG pH ABG pH 7.272 L POC ABG pCO2 POC ABG pO2 ABG pO2 75.7 L ABG HCO3 ABG O2 Saturation 93.8 L ABG Base Excess -3.0 L ABG Hemoglobin 7.8 L Oxyhemoglobin 91.6 L Sodium Potassium 5.2 H Chloride Carbon Dioxide BUN 96 H Creatinine 5.7 H Glucose 112 H POC Glucose Uric Acid Calcium Phosphorus Magnesium Iron TIBC AST ALT Total Creatine Kinase CK-MB (CK-2) Troponin T NT-Pro-B Natriuret Pep Total Protein Albumin Triglycerides 173 H HDL Cholesterol Folate Urine WBC (Auto) Urine Creatinine Urine Total Protein Vancomycin Trough 05/18/19 05/18/19 05/18/19 01:50 04:41 05:24 WBC RBC Hgb Hct MCV MCH MCHC RDW Plt Count Lymph % (Auto) [place] % (Auto) Eos % (Auto) Lymph # [place] # Eos # Seg Neutrophils % Seg Neuts % (Manual) Lymphocytes % (Manual) Monocytes % (Manual) Eosinophils % (Manual) Nucleated RBC % Seg Neutrophils # Seg Neutrophils # Man Lymphocytes # (Manual) Monocytes # (Manual) Eosinophils # (Manual) PT INR APTT Fibrinogen POC ABG pH 7.260 L ABG pH POC ABG pCO2 54.9 H POC ABG pO2 ABG pO2 ABG HCO3 ABG O2 Saturation ABG Base Excess ABG Hemoglobin Oxyhemoglobin Sodium Potassium 5.6 H Chloride Carbon Dioxide BUN 104 H Creatinine 6.6 H Glucose 107 H POC Glucose 106 H Uric Acid Calcium Phosphorus Magnesium Iron TIBC AST ALT Total Creatine Kinase CK-MB (CK-2) Troponin T NT-Pro-B Natriuret Pep Total Protein Albumin Triglycerides HDL Cholesterol Folate Urine WBC (Auto) Urine Creatinine Urine Total Protein Vancomycin Trough 05/18/19 05/18/19 05/19/19 11:34 23:26 04:06 WBC RBC 3.22 L Hgb 8.8 L Hct 27.3 L MCV MCH 27 L MCHC RDW 17.5 H Plt Count Lymph % (Auto) [place] % (Auto) Eos % (Auto) Lymph # [place] # Eos # Seg Neutrophils % Seg Neuts % (Manual) 74.0 H Lymphocytes % (Manual) 4.0 L Monocytes % (Manual) 11.0 H Eosinophils % (Manual) 7.0 H Nucleated RBC % 1.0 H Seg Neutrophils # Seg Neutrophils # Man Lymphocytes # (Manual) 0.3 L Monocytes # (Manual) 0.9 H Eosinophils # (Manual) 0.6 H PT INR APTT Fibrinogen POC ABG pH ABG pH POC ABG pCO2 POC ABG pO2 ABG pO2 ABG HCO3 ABG O2 Saturation ABG Base Excess ABG Hemoglobin Oxyhemoglobin Sodium Potassium Chloride Carbon Dioxide BUN Creatinine Glucose POC Glucose 152 H 112 H Uric Acid Calcium Phosphorus Magnesium Iron TIBC AST ALT Total Creatine Kinase CK-MB (CK-2) Troponin T NT-Pro-B Natriuret Pep Total Protein Albumin Triglycerides HDL Cholesterol Folate Urine WBC (Auto) Urine Creatinine Urine Total Protein Vancomycin Trough 05/19/19 05/19/19 05/20/19 04:06 06:00 04:00 WBC RBC 3.40 L Hgb 9.2 L Hct 28.6 L MCV MCH 27 L MCHC RDW 17.6 H Plt Count Lymph % (Auto) [place] % (Auto) Eos % (Auto) Lymph # [place] # Eos # Seg Neutrophils % Seg Neuts % (Manual) Lymphocytes % (Manual) 11.0 L Monocytes % (Manual) Eosinophils % (Manual) 14.0 H Nucleated RBC % Seg Neutrophils # Seg Neutrophils # Man Lymphocytes # (Manual) 1.1 L Monocytes # (Manual) Eosinophils # (Manual) 1.4 H PT INR APTT Fibrinogen POC ABG pH ABG pH 7.315 L POC ABG pCO2 POC ABG pO2 ABG pO2 ABG HCO3 ABG O2 Saturation ABG Base Excess ABG Hemoglobin 6.7 L Oxyhemoglobin 94.1 L Sodium Potassium 5.2 H Chloride Carbon Dioxide 21 L BUN 110 H Creatinine 7.2 H Glucose POC Glucose Uric Acid Calcium 8.3 L Phosphorus Magnesium Iron TIBC AST ALT Total Creatine Kinase CK-MB (CK-2) Troponin T NT-Pro-B Natriuret Pep Total Protein Albumin Triglycerides HDL Cholesterol Folate Urine WBC (Auto) Urine Creatinine Urine Total Protein Vancomycin Trough 05/20/19 05/20/19 05/20/19 04:00 05:48 12:00 WBC RBC Hgb Hct MCV MCH MCHC RDW Plt Count Lymph % (Auto) [place] % (Auto) Eos % (Auto) Lymph # [place] # Eos # Seg Neutrophils % Seg Neuts % (Manual) Lymphocytes % (Manual) Monocytes % (Manual) Eosinophils % (Manual) Nucleated RBC % Seg Neutrophils # Seg Neutrophils # Man Lymphocytes # (Manual) Monocytes # (Manual) Eosinophils # (Manual) PT INR APTT Fibrinogen POC ABG pH ABG pH 7.281 L POC ABG pCO2 POC ABG pO2 ABG pO2 78.7 L ABG HCO3 ABG O2 Saturation 94.5 L ABG Base Excess -3.0 L ABG Hemoglobin 9.9 L Oxyhemoglobin 92.5 L Sodium 136 L Potassium 5.7 H Chloride 96.3 L Carbon Dioxide BUN 125 H Creatinine 8.3 H Glucose 106 H POC Glucose Uric Acid Calcium Phosphorus Magnesium Iron TIBC AST ALT Total Creatine Kinase CK-MB (CK-2) Troponin T NT-Pro-B Natriuret Pep Total Protein Albumin Triglycerides HDL Cholesterol Folate Urine WBC (Auto) 26.0 H Urine Creatinine Urine Total Protein Vancomycin Trough 05/21/19 05/21/19 05/21/19 04:33 05:20 Unknown WBC RBC 3.38 L Hgb 9.1 L Hct 28.5 L MCV MCH 27 L MCHC RDW 17.4 H Plt Count Lymph % (Auto) [place] % (Auto) Eos % (Auto) Lymph # [place] # Eos # Seg Neutrophils % Seg Neuts % (Manual) 71.0 H Lymphocytes % (Manual) 1.0 L Monocytes % (Manual) 11.0 H Eosinophils % (Manual) 6.0 H Nucleated RBC % Seg Neutrophils # Seg Neutrophils # Man Lymphocytes # (Manual) 0.1 L Monocytes # (Manual) 1.0 H Eosinophils # (Manual) 0.6 H PT INR APTT Fibrinogen POC ABG pH 7.315 L ABG pH POC ABG pCO2 57.8 H POC ABG pO2 68 L ABG pO2 ABG HCO3 ABG O2 Saturation ABG Base Excess ABG Hemoglobin Oxyhemoglobin Sodium Potassium Chloride 96.3 L Carbon Dioxide BUN 102 H Creatinine 7.0 H Glucose 103 H POC Glucose Uric Acid Calcium Phosphorus Magnesium Iron TIBC AST ALT Total Creatine Kinase CK-MB (CK-2) Troponin T NT-Pro-B Natriuret Pep Total Protein Albumin Triglycerides HDL Cholesterol Folate Urine WBC (Auto) Urine Creatinine Urine Total Protein Vancomycin Trough 05/22/19 05/22/19 05/22/19 03:54 06:25 06:25 WBC RBC 3.22 L Hgb 8.6 L Hct 27.0 L MCV MCH 27 L MCHC RDW 17.5 H Plt Count Lymph % (Auto) [place] % (Auto) 16.2 H Eos % (Auto) 10.8 H Lymph # [place] # 1.3 H Eos # 0.9 H Seg Neutrophils % Seg Neuts % (Manual) Lymphocytes % (Manual) 10.0 L Monocytes % (Manual) 13.0 H Eosinophils % (Manual) 8.0 H Nucleated RBC % Seg Neutrophils # Seg Neutrophils # Man Lymphocytes # (Manual) 0.9 L Monocytes # (Manual) 1.1 H Eosinophils # (Manual) 0.7 H PT INR APTT Fibrinogen POC ABG pH 7.313 L ABG pH POC ABG pCO2 55.0 H POC ABG pO2 ABG pO2 ABG HCO3 ABG O2 Saturation ABG Base Excess ABG Hemoglobin Oxyhemoglobin Sodium 135 L Potassium Chloride 94.3 L Carbon Dioxide BUN 117 H Creatinine 7.8 H Glucose POC Glucose Uric Acid Calcium 8.2 L Phosphorus Magnesium Iron TIBC AST ALT Total Creatine Kinase CK-MB (CK-2) Troponin T NT-Pro-B Natriuret Pep Total Protein Albumin Triglycerides HDL Cholesterol Folate Urine WBC (Auto) Urine Creatinine Urine Total Protein Vancomycin Trough 05/23/19 05/24/19 05/24/19 05:21 05:00 05:00 WBC RBC 3.18 L Hgb 8.5 L Hct 26.7 L MCV MCH 27 L MCHC RDW 17.9 H Plt Count Lymph % (Auto) [place] % (Auto) Eos % (Auto) Lymph # [place] # Eos # Seg Neutrophils % Seg Neuts % (Manual) Lymphocytes % (Manual) Monocytes % (Manual) Eosinophils % (Manual) Nucleated RBC % Seg Neutrophils # Seg Neutrophils # Man Lymphocytes # (Manual) Monocytes # (Manual) Eosinophils # (Manual) PT INR APTT Fibrinogen POC ABG pH ABG pH POC ABG pCO2 49.7 H POC ABG pO2 73 L ABG pO2 ABG HCO3 ABG O2 Saturation ABG Base Excess ABG Hemoglobin Oxyhemoglobin Sodium Potassium Chloride 95.7 L Carbon Dioxide BUN 97 H Creatinine 6.5 H Glucose POC Glucose Uric Acid Calcium 8.0 L Phosphorus Magnesium Iron TIBC AST ALT Total Creatine Kinase CK-MB (CK-2) Troponin T NT-Pro-B Natriuret Pep Total Protein Albumin Triglycerides HDL Cholesterol Folate Urine WBC (Auto) Urine Creatinine Urine Total Protein Vancomycin Trough 05/24/19 05/25/19 05/25/19 06:17 04:22 15:45 WBC RBC 2.98 L Hgb 8.1 L Hct 24.9 L MCV MCH 27 L MCHC RDW 17.8 H Plt Count Lymph % (Auto) [place] % (Auto) Eos % (Auto) Lymph # [place] # Eos # Seg Neutrophils % Seg Neuts % (Manual) Lymphocytes % (Manual) Monocytes % (Manual) Eosinophils % (Manual) Nucleated RBC % Seg Neutrophils # Seg Neutrophils # Man Lymphocytes # (Manual) Monocytes # (Manual) Eosinophils # (Manual) PT INR APTT Fibrinogen POC ABG pH 7.330 L 7.313 L ABG pH POC ABG pCO2 52.5 H 51.1 H POC ABG pO2 77 L ABG pO2 ABG HCO3 ABG O2 Saturation ABG Base Excess ABG Hemoglobin Oxyhemoglobin Sodium Potassium Chloride Carbon Dioxide BUN Creatinine Glucose POC Glucose Uric Acid Calcium Phosphorus Magnesium Iron TIBC AST ALT Total Creatine Kinase CK-MB (CK-2) Troponin T NT-Pro-B Natriuret Pep Total Protein Albumin Triglycerides HDL Cholesterol Folate Urine WBC (Auto) Urine Creatinine Urine Total Protein Vancomycin Trough 05/25/19 05/26/19 05/26/19 15:45 04:13 05:00 WBC RBC 3.10 L Hgb 8.4 L Hct 26.0 L MCV MCH 27 L MCHC RDW 17.4 H Plt Count Lymph % (Auto) [place] % (Auto) Eos % (Auto) Lymph # [place] # Eos # Seg Neutrophils % Seg Neuts % (Manual) Lymphocytes % (Manual) Monocytes % (Manual) Eosinophils % (Manual) Nucleated RBC % Seg Neutrophils # Seg Neutrophils # Man Lymphocytes # (Manual) Monocytes # (Manual) Eosinophils # (Manual) PT INR APTT Fibrinogen POC ABG pH 7.295 L ABG pH POC ABG pCO2 56.5 H POC ABG pO2 63 L ABG pO2 ABG HCO3 ABG O2 Saturation ABG Base Excess ABG Hemoglobin Oxyhemoglobin Sodium 136 L Potassium Chloride 96.8 L Carbon Dioxide BUN 83 H Creatinine 5.9 H Glucose POC Glucose Uric Acid Calcium 7.6 L Phosphorus Magnesium Iron TIBC AST ALT Total Creatine Kinase CK-MB (CK-2) Troponin T NT-Pro-B Natriuret Pep Total Protein Albumin Triglycerides HDL Cholesterol Folate Urine WBC (Auto) Urine Creatinine Urine Total Protein Vancomycin Trough 05/26/19 05/27/19 05/28/19 05:00 04:48 04:47 WBC RBC Hgb Hct MCV MCH MCHC RDW Plt Count Lymph % (Auto) [place] % (Auto) Eos % (Auto) Lymph # [place] # Eos # Seg Neutrophils % Seg Neuts % (Manual) Lymphocytes % (Manual) Monocytes % (Manual) Eosinophils % (Manual) Nucleated RBC % Seg Neutrophils # Seg Neutrophils # Man Lymphocytes # (Manual) Monocytes # (Manual) Eosinophils # (Manual) PT INR APTT Fibrinogen POC ABG pH 7.323 L ABG pH 7.284 L POC ABG pCO2 56.2 H POC ABG pO2 ABG pO2 71.6 L ABG HCO3 ABG O2 Saturation 92.0 L ABG Base Excess ABG Hemoglobin 7.7 L Oxyhemoglobin 89.9 L Sodium 136 L Potassium Chloride 95.3 L Carbon Dioxide BUN 96 H Creatinine 6.5 H Glucose 108 H POC Glucose Uric Acid Calcium 7.6 L Phosphorus Magnesium Iron TIBC AST ALT Total Creatine Kinase CK-MB (CK-2) Troponin T NT-Pro-B Natriuret Pep Total Protein Albumin Triglycerides HDL Cholesterol Folate Urine WBC (Auto) Urine Creatinine Urine Total Protein Vancomycin Trough 05/28/19 05/29/19 05/29/19 12:30 12:47 23:44 WBC RBC Hgb Hct MCV MCH MCHC RDW Plt Count Lymph % (Auto) [place] % (Auto) Eos % (Auto) Lymph # [place] # Eos # Seg Neutrophils % Seg Neuts % (Manual) Lymphocytes % (Manual) Monocytes % (Manual) Eosinophils % (Manual) Nucleated RBC % Seg Neutrophils # Seg Neutrophils # Man Lymphocytes # (Manual) Monocytes # (Manual) Eosinophils # (Manual) PT INR APTT Fibrinogen POC ABG pH ABG pH POC ABG pCO2 POC ABG pO2 ABG pO2 ABG HCO3 ABG O2 Saturation ABG Base Excess ABG Hemoglobin Oxyhemoglobin Sodium 135 L Potassium Chloride 95.3 L Carbon Dioxide BUN 82 H Creatinine 6.0 H Glucose POC Glucose 136 H 159 H Uric Acid Calcium 7.5 L Phosphorus Magnesium Iron TIBC AST ALT Total Creatine Kinase CK-MB (CK-2) Troponin T NT-Pro-B Natriuret Pep Total Protein Albumin Triglycerides HDL Cholesterol Folate Urine WBC (Auto) Urine Creatinine Urine Total Protein Vancomycin Trough 05/30/19 05/30/19 05/30/19 04:30 05:38 12:00 WBC RBC 3.01 L Hgb 8.2 L Hct 25.3 L MCV MCH 27 L MCHC RDW 17.5 H Plt Count Lymph % (Auto) [place] % (Auto) Eos % (Auto) Lymph # [place] # Eos # Seg Neutrophils % Seg Neuts % (Manual) 80.0 H Lymphocytes % (Manual) 10.0 L Monocytes % (Manual) Eosinophils % (Manual) Nucleated RBC % Seg Neutrophils # Seg Neutrophils # Man 8.0 H Lymphocytes # (Manual) 1.0 L Monocytes # (Manual) Eosinophils # (Manual) PT INR APTT Fibrinogen POC ABG pH ABG pH POC ABG pCO2 POC ABG pO2 73 L ABG pO2 ABG HCO3 ABG O2 Saturation ABG Base Excess ABG Hemoglobin Oxyhemoglobin Sodium Potassium Chloride Carbon Dioxide BUN Creatinine Glucose POC Glucose 166 H Uric Acid Calcium Phosphorus Magnesium Iron TIBC AST ALT Total Creatine Kinase CK-MB (CK-2) Troponin T NT-Pro-B Natriuret Pep Total Protein Albumin Triglycerides HDL Cholesterol Folate Urine WBC (Auto) Urine Creatinine Urine Total Protein Vancomycin Trough 05/30/19 05/31/19 05/31/19 23:45 04:07 13:04 WBC 14.3 H RBC 2.88 L Hgb 7.7 L Hct 23.9 L MCV 83 L MCH 27 L MCHC RDW 17.8 H Plt Count Lymph % (Auto) [place] % (Auto) Eos % (Auto) Lymph # [place] # Eos # Seg Neutrophils % Seg Neuts % (Manual) 83.0 H Lymphocytes % (Manual) 11.0 L Monocytes % (Manual) Eosinophils % (Manual) Nucleated RBC % Seg Neutrophils # Seg Neutrophils # Man 11.9 H Lymphocytes # (Manual) Monocytes # (Manual) 0.9 H Eosinophils # (Manual) PT INR APTT Fibrinogen POC ABG pH ABG pH POC ABG pCO2 47.4 H POC ABG pO2 ABG pO2 ABG HCO3 ABG O2 Saturation ABG Base Excess ABG Hemoglobin Oxyhemoglobin Sodium Potassium Chloride Carbon Dioxide BUN Creatinine Glucose POC Glucose 209 H Uric Acid Calcium Phosphorus Magnesium Iron TIBC AST ALT Total Creatine Kinase CK-MB (CK-2) Troponin T NT-Pro-B Natriuret Pep Total Protein Albumin Triglycerides HDL Cholesterol Folate Urine WBC (Auto) Urine Creatinine Urine Total Protein Vancomycin Trough 05/31/19 05/31/19 06/01/19 13:04 16:42 00:15 WBC RBC Hgb Hct MCV MCH MCHC RDW Plt Count Lymph % (Auto) [place] % (Auto) Eos % (Auto) Lymph # [place] # Eos # Seg Neutrophils % Seg Neuts % (Manual) Lymphocytes % (Manual) Monocytes % (Manual) Eosinophils % (Manual) Nucleated RBC % Seg Neutrophils # Seg Neutrophils # Man Lymphocytes # (Manual) Monocytes # (Manual) Eosinophils # (Manual) PT INR APTT Fibrinogen POC ABG pH ABG pH POC ABG pCO2 POC ABG pO2 ABG pO2 ABG HCO3 ABG O2 Saturation ABG Base Excess ABG Hemoglobin Oxyhemoglobin Sodium 129 L Potassium Chloride 88.6 L Carbon Dioxide 19 L BUN 117 H Creatinine 6.7 H Glucose 205 H POC Glucose 228 H 223 H Uric Acid Calcium 7.4 L Phosphorus 7.40 H Magnesium Iron TIBC AST 58 H ALT 149 H Total Creatine Kinase CK-MB (CK-2) Troponin T NT-Pro-B Natriuret Pep Total Protein 6.0 L Albumin 2.5 L Triglycerides HDL Cholesterol Folate Urine WBC (Auto) Urine Creatinine Urine Total Protein Vancomycin Trough 06/01/19 06/01/19 06/01/19 04:33 05:27 12:31 WBC RBC Hgb Hct MCV MCH MCHC RDW Plt Count Lymph % (Auto) [place] % (Auto) Eos % (Auto) Lymph # [place] # Eos # Seg Neutrophils % Seg Neuts % (Manual) Lymphocytes % (Manual) Monocytes % (Manual) Eosinophils % (Manual) Nucleated RBC % Seg Neutrophils # Seg Neutrophils # Man Lymphocytes # (Manual) Monocytes # (Manual) Eosinophils # (Manual) PT INR APTT Fibrinogen POC ABG pH ABG pH POC ABG pCO2 POC ABG pO2 ABG pO2 56.9 L ABG HCO3 ABG O2 Saturation 85.9 L ABG Base Excess ABG Hemoglobin 8.1 L Oxyhemoglobin 83.6 L Sodium Potassium Chloride Carbon Dioxide BUN Creatinine Glucose POC Glucose 183 H 217 H Uric Acid Calcium Phosphorus Magnesium Iron TIBC AST ALT Total Creatine Kinase CK-MB (CK-2) Troponin T NT-Pro-B Natriuret Pep Total Protein Albumin Triglycerides HDL Cholesterol Folate Urine WBC (Auto) Urine Creatinine Urine Total Protein Vancomycin Trough 06/01/19 06/02/19 06/02/19 18:20 00:00 05:33 WBC RBC Hgb Hct MCV MCH MCHC RDW Plt Count Lymph % (Auto) [place] % (Auto) Eos % (Auto) Lymph # [place] # Eos # Seg Neutrophils % Seg Neuts % (Manual) Lymphocytes % (Manual) Monocytes % (Manual) Eosinophils % (Manual) Nucleated RBC % Seg Neutrophils # Seg Neutrophils # Man Lymphocytes # (Manual) Monocytes # (Manual) Eosinophils # (Manual) PT INR APTT Fibrinogen POC ABG pH ABG pH POC ABG pCO2 POC ABG pO2 ABG pO2 ABG HCO3 ABG O2 Saturation ABG Base Excess ABG Hemoglobin Oxyhemoglobin Sodium Potassium Chloride Carbon Dioxide BUN Creatinine Glucose POC Glucose 265 H 279 H 259 H Uric Acid Calcium Phosphorus Magnesium Iron TIBC AST ALT Total Creatine Kinase CK-MB (CK-2) Troponin T NT-Pro-B Natriuret Pep Total Protein Albumin Triglycerides HDL Cholesterol Folate Urine WBC (Auto) Urine Creatinine Urine Total Protein Vancomycin Trough 06/02/19 06/02/19 06/02/19 11:06 11:06 11:42 WBC 13.1 H RBC 2.92 L Hgb 7.9 L Hct 24.4 L MCV MCH 27 L MCHC RDW 17.4 H Plt Count Lymph % (Auto) [place] % (Auto) Eos % (Auto) Lymph # [place] # Eos # Seg Neutrophils % Seg Neuts % (Manual) 78.0 H Lymphocytes % (Manual) 12.0 L Monocytes % (Manual) 10.0 H Eosinophils % (Manual) Nucleated RBC % Seg Neutrophils # Seg Neutrophils # Man 10.2 H Lymphocytes # (Manual) Monocytes # (Manual) 1.3 H Eosinophils # (Manual) PT INR APTT Fibrinogen POC ABG pH ABG pH POC ABG pCO2 POC ABG pO2 ABG pO2 ABG HCO3 ABG O2 Saturation ABG Base Excess ABG Hemoglobin Oxyhemoglobin Sodium 135 L Potassium Chloride 94.7 L Carbon Dioxide 21 L BUN 107 H Creatinine 4.5 H Glucose 286 H POC Glucose 263 H Uric Acid Calcium 7.9 L Phosphorus 6.30 H Magnesium Iron TIBC AST ALT 104 H Total Creatine Kinase CK-MB (CK-2) Troponin T NT-Pro-B Natriuret Pep Total Protein 6.0 L Albumin 2.7 L Triglycerides HDL Cholesterol Folate Urine WBC (Auto) Urine Creatinine Urine Total Protein Vancomycin Trough 06/02/19 06/02/19 06/03/19 18:17 23:55 05:30 WBC RBC Hgb Hct MCV MCH MCHC RDW Plt Count Lymph % (Auto) [place] % (Auto) Eos % (Auto) Lymph # [place] # Eos # Seg Neutrophils % Seg Neuts % (Manual) Lymphocytes % (Manual) Monocytes % (Manual) Eosinophils % (Manual) Nucleated RBC % Seg Neutrophils # Seg Neutrophils # Man Lymphocytes # (Manual) Monocytes # (Manual) Eosinophils # (Manual) PT INR APTT Fibrinogen POC ABG pH ABG pH POC ABG pCO2 POC ABG pO2 ABG pO2 ABG HCO3 ABG O2 Saturation ABG Base Excess ABG Hemoglobin Oxyhemoglobin Sodium Potassium Chloride 95.1 L Carbon Dioxide 21 L BUN 119 H Creatinine 4.1 H Glucose 330 H POC Glucose 276 H 244 H Uric Acid Calcium 8.1 L Phosphorus Magnesium Iron TIBC AST ALT 98 H Total Creatine Kinase CK-MB (CK-2) Troponin T NT-Pro-B Natriuret Pep Total Protein 5.8 L Albumin 2.8 L Triglycerides HDL Cholesterol Folate Urine WBC (Auto) Urine Creatinine Urine Total Protein Vancomycin Trough 06/03/19 06/03/19 06/03/19 05:30 06:04 09:42 WBC 12.8 H RBC 3.01 L Hgb 8.2 L Hct 25.4 L MCV MCH 27 L MCHC RDW 17.5 H Plt Count Lymph % (Auto) [place] % (Auto) Eos % (Auto) Lymph # [place] # Eos # Seg Neutrophils % Seg Neuts % (Manual) 78.0 H Lymphocytes % (Manual) 10.0 L Monocytes % (Manual) 12.0 H Eosinophils % (Manual) Nucleated RBC % Seg Neutrophils # Seg Neutrophils # Man 10.0 H Lymphocytes # (Manual) Monocytes # (Manual) 1.5 H Eosinophils # (Manual) PT INR APTT Fibrinogen POC ABG pH ABG pH POC ABG pCO2 POC ABG pO2 ABG pO2 ABG HCO3 ABG O2 Saturation ABG Base Excess ABG Hemoglobin Oxyhemoglobin Sodium Potassium Chloride Carbon Dioxide BUN 106 H Creatinine Glucose POC Glucose 254 H Uric Acid Calcium Phosphorus Magnesium Iron TIBC AST ALT Total Creatine Kinase CK-MB (CK-2) Troponin T NT-Pro-B Natriuret Pep Total Protein Albumin Triglycerides HDL Cholesterol Folate Urine WBC (Auto) Urine Creatinine Urine Total Protein Vancomycin Trough 06/03/19 06/03/19 06/03/19 12:52 17:25 23:37 WBC RBC Hgb Hct MCV MCH MCHC RDW Plt Count Lymph % (Auto) [place] % (Auto) Eos % (Auto) Lymph # [place] # Eos # Seg Neutrophils % Seg Neuts % (Manual) Lymphocytes % (Manual) Monocytes % (Manual) Eosinophils % (Manual) Nucleated RBC % Seg Neutrophils # Seg Neutrophils # Man Lymphocytes # (Manual) Monocytes # (Manual) Eosinophils # (Manual) PT INR APTT Fibrinogen POC ABG pH ABG pH POC ABG pCO2 POC ABG pO2 ABG pO2 ABG HCO3 ABG O2 Saturation ABG Base Excess ABG Hemoglobin Oxyhemoglobin Sodium Potassium Chloride Carbon Dioxide BUN Creatinine Glucose POC Glucose 274 H 285 H 310 H Uric Acid Calcium Phosphorus Magnesium Iron TIBC AST ALT Total Creatine Kinase CK-MB (CK-2) Troponin T NT-Pro-B Natriuret Pep Total Protein Albumin Triglycerides HDL Cholesterol Folate Urine WBC (Auto) Urine Creatinine Urine Total Protein Vancomycin Trough 06/04/19 06/04/19 06/04/19 04:57 05:03 11:50 WBC RBC Hgb Hct MCV MCH MCHC RDW Plt Count Lymph % (Auto) [place] % (Auto) Eos % (Auto) Lymph # [place] # Eos # Seg Neutrophils % Seg Neuts % (Manual) Lymphocytes % (Manual) Monocytes % (Manual) Eosinophils % (Manual) Nucleated RBC % Seg Neutrophils # Seg Neutrophils # Man Lymphocytes # (Manual) Monocytes # (Manual) Eosinophils # (Manual) PT INR APTT Fibrinogen POC ABG pH 7.488 H ABG pH POC ABG pCO2 POC ABG pO2 ABG pO2 ABG HCO3 ABG O2 Saturation ABG Base Excess ABG Hemoglobin Oxyhemoglobin Sodium Potassium Chloride Carbon Dioxide BUN Creatinine Glucose POC Glucose 275 H 279 H Uric Acid Calcium Phosphorus Magnesium Iron TIBC AST ALT Total Creatine Kinase CK-MB (CK-2) Troponin T NT-Pro-B Natriuret Pep Total Protein Albumin Triglycerides HDL Cholesterol Folate Urine WBC (Auto) Urine Creatinine Urine Total Protein Vancomycin Trough 06/04/19 06/04/19 06/04/19 18:32 22:03 23:55 WBC RBC Hgb Hct MCV MCH MCHC RDW Plt Count Lymph % (Auto) [place] % (Auto) Eos % (Auto) Lymph # [place] # Eos # Seg Neutrophils % Seg Neuts % (Manual) Lymphocytes % (Manual) Monocytes % (Manual) Eosinophils % (Manual) Nucleated RBC % Seg Neutrophils # Seg Neutrophils # Man Lymphocytes # (Manual) Monocytes # (Manual) Eosinophils # (Manual) PT INR APTT Fibrinogen POC ABG pH ABG pH POC ABG pCO2 POC ABG pO2 ABG pO2 ABG HCO3 ABG O2 Saturation ABG Base Excess ABG Hemoglobin Oxyhemoglobin Sodium Potassium Chloride Carbon Dioxide BUN Creatinine Glucose POC Glucose 267 H 307 H 292 H Uric Acid Calcium Phosphorus Magnesium Iron TIBC AST ALT Total Creatine Kinase CK-MB (CK-2) Troponin T NT-Pro-B Natriuret Pep Total Protein Albumin Triglycerides HDL Cholesterol Folate Urine WBC (Auto) Urine Creatinine Urine Total Protein Vancomycin Trough 06/05/19 06/05/19 06/05/19 03:52 06:41 12:29 WBC RBC Hgb Hct MCV MCH MCHC RDW Plt Count Lymph % (Auto) [place] % (Auto) Eos % (Auto) Lymph # [place] # Eos # Seg Neutrophils % Seg Neuts % (Manual) Lymphocytes % (Manual) Monocytes % (Manual) Eosinophils % (Manual) Nucleated RBC % Seg Neutrophils # Seg Neutrophils # Man Lymphocytes # (Manual) Monocytes # (Manual) Eosinophils # (Manual) PT INR APTT Fibrinogen POC ABG pH 7.462 H ABG pH POC ABG pCO2 POC ABG pO2 ABG pO2 ABG HCO3 ABG O2 Saturation ABG Base Excess ABG Hemoglobin Oxyhemoglobin Sodium Potassium Chloride Carbon Dioxide BUN Creatinine Glucose POC Glucose 369 H 265 H Uric Acid Calcium Phosphorus Magnesium Iron TIBC AST ALT Total Creatine Kinase CK-MB (CK-2) Troponin T NT-Pro-B Natriuret Pep Total Protein Albumin Triglycerides HDL Cholesterol Folate Urine WBC (Auto) Urine Creatinine Urine Total Protein Vancomycin Trough 06/05/19 06/05/19 06/05/19 18:20 21:42 23:21 WBC RBC Hgb Hct MCV MCH MCHC RDW Plt Count Lymph % (Auto) [place] % (Auto) Eos % (Auto) Lymph # [place] # Eos # Seg Neutrophils % Seg Neuts % (Manual) Lymphocytes % (Manual) Monocytes % (Manual) Eosinophils % (Manual) Nucleated RBC % Seg Neutrophils # Seg Neutrophils # Man Lymphocytes # (Manual) Monocytes # (Manual) Eosinophils # (Manual) PT INR APTT Fibrinogen POC ABG pH ABG pH POC ABG pCO2 POC ABG pO2 ABG pO2 ABG HCO3 ABG O2 Saturation ABG Base Excess ABG Hemoglobin Oxyhemoglobin Sodium Potassium Chloride Carbon Dioxide BUN Creatinine Glucose POC Glucose 249 H 246 H 274 H Uric Acid Calcium Phosphorus Magnesium Iron TIBC AST ALT Total Creatine Kinase CK-MB (CK-2) Troponin T NT-Pro-B Natriuret Pep Total Protein Albumin Triglycerides HDL Cholesterol Folate Urine WBC (Auto) Urine Creatinine Urine Total Protein Vancomycin Trough 06/06/19 06/06/19 06/06/19 04:00 05:49 11:34 WBC 18.1 H RBC 3.53 L Hgb 9.5 L Hct 30.3 L MCV MCH 27 L MCHC 31 L RDW 19.5 H Plt Count Lymph % (Auto) [place] % (Auto) Eos % (Auto) Lymph # [place] # Eos # Seg Neutrophils % Seg Neuts % (Manual) 87.0 H Lymphocytes % (Manual) 3.0 L Monocytes % (Manual) 8.0 H Eosinophils % (Manual) Nucleated RBC % Seg Neutrophils # Seg Neutrophils # Man 15.7 H Lymphocytes # (Manual) 0.5 L Monocytes # (Manual) 1.4 H Eosinophils # (Manual) PT INR APTT Fibrinogen POC ABG pH ABG pH 7.472 H POC ABG pCO2 POC ABG pO2 ABG pO2 76.4 L ABG HCO3 28.1 H ABG O2 Saturation ABG Base Excess 4.3 H ABG Hemoglobin 12.5 L Oxyhemoglobin 93.8 L Sodium Potassium Chloride Carbon Dioxide BUN Creatinine Glucose POC Glucose 340 H Uric Acid Calcium Phosphorus Magnesium Iron TIBC AST ALT Total Creatine Kinase CK-MB (CK-2) Troponin T NT-Pro-B Natriuret Pep Total Protein Albumin Triglycerides HDL Cholesterol Folate Urine WBC (Auto) Urine Creatinine Urine Total Protein Vancomycin Trough 06/06/19 06/06/19 06/06/19 11:34 12:11 18:10 WBC RBC Hgb Hct MCV MCH MCHC RDW Plt Count Lymph % (Auto) [place] % (Auto) Eos % (Auto) Lymph # [place] # Eos # Seg Neutrophils % Seg Neuts % (Manual) Lymphocytes % (Manual) Monocytes % (Manual) Eosinophils % (Manual) Nucleated RBC % Seg Neutrophils # Seg Neutrophils # Man Lymphocytes # (Manual) Monocytes # (Manual) Eosinophils # (Manual) PT INR APTT Fibrinogen POC ABG pH ABG pH POC ABG pCO2 POC ABG pO2 ABG pO2 ABG HCO3 ABG O2 Saturation ABG Base Excess ABG Hemoglobin Oxyhemoglobin Sodium Potassium Chloride Carbon Dioxide BUN 70 H Creatinine Glucose 310 H POC Glucose 283 H 301 H Uric Acid Calcium 8.3 L Phosphorus 4.60 H Magnesium Iron TIBC AST ALT 75 H Total Creatine Kinase CK-MB (CK-2) Troponin T NT-Pro-B Natriuret Pep Total Protein 5.6 L Albumin 2.9 L Triglycerides HDL Cholesterol Folate Urine WBC (Auto) Urine Creatinine Urine Total Protein Vancomycin Trough 06/06/19 06/06/19 06/07/19 22:21 23:16 04:30 WBC RBC Hgb Hct MCV MCH MCHC RDW Plt Count Lymph % (Auto) [place] % (Auto) Eos % (Auto) Lymph # [place] # Eos # Seg Neutrophils % Seg Neuts % (Manual) Lymphocytes % (Manual) Monocytes % (Manual) Eosinophils % (Manual) Nucleated RBC % Seg Neutrophils # Seg Neutrophils # Man Lymphocytes # (Manual) Monocytes # (Manual) Eosinophils # (Manual) PT INR APTT Fibrinogen POC ABG pH ABG pH 7.480 H POC ABG pCO2 POC ABG pO2 ABG pO2 77.0 L ABG HCO3 27.2 H ABG O2 Saturation ABG Base Excess 3.5 H ABG Hemoglobin 7.1 L Oxyhemoglobin 94.2 L Sodium Potassium Chloride Carbon Dioxide BUN Creatinine Glucose POC Glucose 289 H 343 H Uric Acid Calcium Phosphorus Magnesium Iron TIBC AST ALT Total Creatine Kinase CK-MB (CK-2) Troponin T NT-Pro-B Natriuret Pep Total Protein Albumin Triglycerides HDL Cholesterol Folate Urine WBC (Auto) Urine Creatinine Urine Total Protein Vancomycin Trough 06/07/19 06/07/19 06/07/19 05:15 12:52 18:41 WBC RBC Hgb Hct MCV MCH MCHC RDW Plt Count Lymph % (Auto) [place] % (Auto) Eos % (Auto) Lymph # [place] # Eos # Seg Neutrophils % Seg Neuts % (Manual) Lymphocytes % (Manual) Monocytes % (Manual) Eosinophils % (Manual) Nucleated RBC % Seg Neutrophils # Seg Neutrophils # Man Lymphocytes # (Manual) Monocytes # (Manual) Eosinophils # (Manual) PT INR APTT Fibrinogen POC ABG pH ABG pH POC ABG pCO2 POC ABG pO2 ABG pO2 ABG HCO3 ABG O2 Saturation ABG Base Excess ABG Hemoglobin Oxyhemoglobin Sodium Potassium Chloride Carbon Dioxide BUN Creatinine Glucose POC Glucose 307 H 226 H 187 H Uric Acid Calcium Phosphorus Magnesium Iron TIBC AST ALT Total Creatine Kinase CK-MB (CK-2) Troponin T NT-Pro-B Natriuret Pep Total Protein Albumin Triglycerides HDL Cholesterol Folate Urine WBC (Auto) Urine Creatinine Urine Total Protein Vancomycin Trough 06/07/19 06/07/19 06/08/19 22:54 23:46 04:20 WBC 16.0 H RBC Hgb 10.0 L Hct 32.1 L MCV MCH 27 L MCHC 31 L RDW 19.4 H Plt Count Lymph % (Auto) [place] % (Auto) Eos % (Auto) Lymph # [place] # Eos # Seg Neutrophils % Seg Neuts % (Manual) 87.0 H Lymphocytes % (Manual) 7.0 L Monocytes % (Manual) Eosinophils % (Manual) Nucleated RBC % Seg Neutrophils # Seg Neutrophils # Man 13.9 H Lymphocytes # (Manual) 1.1 L Monocytes # (Manual) 1.0 H Eosinophils # (Manual) PT INR APTT Fibrinogen POC ABG pH ABG pH POC ABG pCO2 POC ABG pO2 ABG pO2 ABG HCO3 ABG O2 Saturation ABG Base Excess ABG Hemoglobin Oxyhemoglobin Sodium Potassium Chloride Carbon Dioxide BUN Creatinine Glucose POC Glucose 199 H 172 H Uric Acid Calcium Phosphorus Magnesium Iron TIBC AST ALT Total Creatine Kinase CK-MB (CK-2) Troponin T NT-Pro-B Natriuret Pep Total Protein Albumin Triglycerides HDL Cholesterol Folate Urine WBC (Auto) Urine Creatinine Urine Total Protein Vancomycin Trough 06/08/19 06/08/19 06/08/19 04:20 05:15 11:31 WBC RBC Hgb Hct MCV MCH MCHC RDW Plt Count Lymph % (Auto) [place] % (Auto) Eos % (Auto) Lymph # [place] # Eos # Seg Neutrophils % Seg Neuts % (Manual) Lymphocytes % (Manual) Monocytes % (Manual) Eosinophils % (Manual) Nucleated RBC % Seg Neutrophils # Seg Neutrophils # Man Lymphocytes # (Manual) Monocytes # (Manual) Eosinophils # (Manual) PT INR APTT Fibrinogen POC ABG pH ABG pH POC ABG pCO2 POC ABG pO2 ABG pO2 ABG HCO3 ABG O2 Saturation ABG Base Excess ABG Hemoglobin Oxyhemoglobin Sodium 146 H D Potassium Chloride Carbon Dioxide BUN 77 H Creatinine Glucose 205 H POC Glucose 209 H 181 H Uric Acid Calcium Phosphorus Magnesium Iron TIBC AST ALT 66 H Total Creatine Kinase CK-MB (CK-2) Troponin T NT-Pro-B Natriuret Pep Total Protein 5.5 L Albumin 2.9 L Triglycerides HDL Cholesterol Folate Urine WBC (Auto) Urine Creatinine Urine Total Protein Vancomycin Trough 06/08/19 06/08/19 06/09/19 17:28 23:24 05:20 WBC RBC Hgb Hct MCV MCH MCHC RDW Plt Count Lymph % (Auto) [place] % (Auto) Eos % (Auto) Lymph # [place] # Eos # Seg Neutrophils % Seg Neuts % (Manual) Lymphocytes % (Manual) Monocytes % (Manual) Eosinophils % (Manual) Nucleated RBC % Seg Neutrophils # Seg Neutrophils # Man Lymphocytes # (Manual) Monocytes # (Manual) Eosinophils # (Manual) PT INR APTT Fibrinogen POC ABG pH ABG pH POC ABG pCO2 POC ABG pO2 ABG pO2 ABG HCO3 ABG O2 Saturation ABG Base Excess ABG Hemoglobin Oxyhemoglobin Sodium Potassium Chloride Carbon Dioxide BUN Creatinine Glucose POC Glucose 215 H 200 H 173 H Uric Acid Calcium Phosphorus Magnesium Iron TIBC AST ALT Total Creatine Kinase CK-MB (CK-2) Troponin T NT-Pro-B Natriuret Pep Total Protein Albumin Triglycerides HDL Cholesterol Folate Urine WBC (Auto) Urine Creatinine Urine Total Protein Vancomycin Trough 06/09/19 06/09/19 06/09/19 12:07 18:32 23:51 WBC RBC Hgb Hct MCV MCH MCHC RDW Plt Count Lymph % (Auto) [place] % (Auto) Eos % (Auto) Lymph # [place] # Eos # Seg Neutrophils % Seg Neuts % (Manual) Lymphocytes % (Manual) Monocytes % (Manual) Eosinophils % (Manual) Nucleated RBC % Seg Neutrophils # Seg Neutrophils # Man Lymphocytes # (Manual) Monocytes # (Manual) Eosinophils # (Manual) PT INR APTT Fibrinogen POC ABG pH ABG pH POC ABG pCO2 POC ABG pO2 ABG pO2 ABG HCO3 ABG O2 Saturation ABG Base Excess ABG Hemoglobin Oxyhemoglobin Sodium Potassium Chloride Carbon Dioxide BUN Creatinine Glucose POC Glucose 117 H 169 H 147 H Uric Acid Calcium Phosphorus Magnesium Iron TIBC AST ALT Total Creatine Kinase CK-MB (CK-2) Troponin T NT-Pro-B Natriuret Pep Total Protein Albumin Triglycerides HDL Cholesterol Folate Urine WBC (Auto) Urine Creatinine Urine Total Protein Vancomycin Trough 06/10/19 06/10/19 06/10/19 05:45 05:45 06:01 WBC 14.6 H RBC Hgb 9.9 L Hct 32.2 L MCV MCH 27 L MCHC 31 L RDW 19.6 H Plt Count Lymph % (Auto) 10.5 L [place] % (Auto) 9.4 H Eos % (Auto) Lymph # [place] # 1.4 H Eos # Seg Neutrophils % 79.9 H Seg Neuts % (Manual) Lymphocytes % (Manual) Monocytes % (Manual) Eosinophils % (Manual) Nucleated RBC % Seg Neutrophils # 11.7 H Seg Neutrophils # Man Lymphocytes # (Manual) Monocytes # (Manual) Eosinophils # (Manual) PT INR APTT Fibrinogen POC ABG pH ABG pH POC ABG pCO2 POC ABG pO2 ABG pO2 ABG HCO3 ABG O2 Saturation ABG Base Excess ABG Hemoglobin Oxyhemoglobin Sodium 150 H Potassium Chloride 108.3 H Carbon Dioxide BUN 49 H Creatinine Glucose 172 H POC Glucose 165 H Uric Acid Calcium Phosphorus Magnesium 1.40 L Iron TIBC AST ALT Total Creatine Kinase CK-MB (CK-2) Troponin T NT-Pro-B Natriuret Pep Total Protein Albumin Triglycerides HDL Cholesterol Folate Urine WBC (Auto) Urine Creatinine Urine Total Protein Vancomycin Trough 06/10/19 06/10/19 06/11/19 12:11 18:30 00:02 WBC RBC Hgb Hct MCV MCH MCHC RDW Plt Count Lymph % (Auto) [place] % (Auto) Eos % (Auto) Lymph # [place] # Eos # Seg Neutrophils % Seg Neuts % (Manual) Lymphocytes % (Manual) Monocytes % (Manual) Eosinophils % (Manual) Nucleated RBC % Seg Neutrophils # Seg Neutrophils # Man Lymphocytes # (Manual) Monocytes # (Manual) Eosinophils # (Manual) PT INR APTT Fibrinogen POC ABG pH ABG pH POC ABG pCO2 POC ABG pO2 ABG pO2 ABG HCO3 ABG O2 Saturation ABG Base Excess ABG Hemoglobin Oxyhemoglobin Sodium Potassium Chloride Carbon Dioxide BUN Creatinine Glucose POC Glucose 150 H 154 H 130 H Uric Acid Calcium Phosphorus Magnesium Iron TIBC AST ALT Total Creatine Kinase CK-MB (CK-2) Troponin T NT-Pro-B Natriuret Pep Total Protein Albumin Triglycerides HDL Cholesterol Folate Urine WBC (Auto) Urine Creatinine Urine Total Protein Vancomycin Trough 06/11/19 06/11/19 06/11/19 05:33 08:34 12:33 WBC RBC Hgb Hct MCV MCH MCHC RDW Plt Count Lymph % (Auto) [place] % (Auto) Eos % (Auto) Lymph # [place] # Eos # Seg Neutrophils % Seg Neuts % (Manual) Lymphocytes % (Manual) Monocytes % (Manual) Eosinophils % (Manual) Nucleated RBC % Seg Neutrophils # Seg Neutrophils # Man Lymphocytes # (Manual) Monocytes # (Manual) Eosinophils # (Manual) PT INR APTT Fibrinogen POC ABG pH ABG pH POC ABG pCO2 POC ABG pO2 ABG pO2 ABG HCO3 ABG O2 Saturation ABG Base Excess ABG Hemoglobin Oxyhemoglobin Sodium 154 H Potassium Chloride 111.6 H Carbon Dioxide BUN 41 H Creatinine Glucose 147 H POC Glucose 183 H 185 H Uric Acid Calcium Phosphorus Magnesium Iron TIBC AST ALT Total Creatine Kinase CK-MB (CK-2) Troponin T NT-Pro-B Natriuret Pep Total Protein Albumin Triglycerides HDL Cholesterol Folate Urine WBC (Auto) Urine Creatinine Urine Total Protein Vancomycin Trough 06/11/19 06/11/19 06/12/19 18:22 23:46 03:21 WBC 11.9 H RBC 3.61 L Hgb 9.9 L Hct 31.7 L MCV MCH 27 L MCHC 31 L RDW 19.3 H Plt Count Lymph % (Auto) 10.6 L [place] % (Auto) 8.6 H Eos % (Auto) Lymph # [place] # 1.0 H Eos # Seg Neutrophils % 80.6 H Seg Neuts % (Manual) Lymphocytes % (Manual) Monocytes % (Manual) Eosinophils % (Manual) Nucleated RBC % Seg Neutrophils # 9.6 H Seg Neutrophils # Man Lymphocytes # (Manual) Monocytes # (Manual) Eosinophils # (Manual) PT INR APTT Fibrinogen POC ABG pH ABG pH POC ABG pCO2 POC ABG pO2 ABG pO2 ABG HCO3 ABG O2 Saturation ABG Base Excess ABG Hemoglobin Oxyhemoglobin Sodium Potassium Chloride Carbon Dioxide BUN Creatinine Glucose POC Glucose 158 H 182 H Uric Acid Calcium Phosphorus Magnesium Iron TIBC AST ALT Total Creatine Kinase CK-MB (CK-2) Troponin T NT-Pro-B Natriuret Pep Total Protein Albumin Triglycerides HDL Cholesterol Folate Urine WBC (Auto) Urine Creatinine Urine Total Protein Vancomycin Trough 06/12/19 06/12/19 06/12/19 03:21 06:04 11:28 WBC RBC Hgb Hct MCV MCH MCHC RDW Plt Count Lymph % (Auto) [place] % (Auto) Eos % (Auto) Lymph # [place] # Eos # Seg Neutrophils % Seg Neuts % (Manual) Lymphocytes % (Manual) Monocytes % (Manual) Eosinophils % (Manual) Nucleated RBC % Seg Neutrophils # Seg Neutrophils # Man Lymphocytes # (Manual) Monocytes # (Manual) Eosinophils # (Manual) PT INR APTT Fibrinogen POC ABG pH ABG pH POC ABG pCO2 POC ABG pO2 ABG pO2 ABG HCO3 ABG O2 Saturation ABG Base Excess ABG Hemoglobin Oxyhemoglobin Sodium 148 H Potassium Chloride 107.3 H Carbon Dioxide BUN 34 H Creatinine 0.7 L Glucose 194 H POC Glucose 133 H 167 H Uric Acid Calcium Phosphorus Magnesium 1.40 L Iron TIBC AST ALT Total Creatine Kinase CK-MB (CK-2) Troponin T NT-Pro-B Natriuret Pep Total Protein Albumin Triglycerides HDL Cholesterol Folate Urine WBC (Auto) Urine Creatinine Urine Total Protein Vancomycin Trough 06/12/19 06/12/19 06/13/19 18:47 21:27 00:04 WBC RBC Hgb Hct MCV MCH MCHC RDW Plt Count Lymph % (Auto) [place] % (Auto) Eos % (Auto) Lymph # [place] # Eos # Seg Neutrophils % Seg Neuts % (Manual) Lymphocytes % (Manual) Monocytes % (Manual) Eosinophils % (Manual) Nucleated RBC % Seg Neutrophils # Seg Neutrophils # Man Lymphocytes # (Manual) Monocytes # (Manual) Eosinophils # (Manual) PT INR APTT Fibrinogen POC ABG pH ABG pH POC ABG pCO2 POC ABG pO2 ABG pO2 ABG HCO3 ABG O2 Saturation ABG Base Excess ABG Hemoglobin Oxyhemoglobin Sodium Potassium Chloride Carbon Dioxide BUN Creatinine Glucose POC Glucose 210 H 263 H 248 H Uric Acid Calcium Phosphorus Magnesium Iron TIBC AST ALT Total Creatine Kinase CK-MB (CK-2) Troponin T NT-Pro-B Natriuret Pep Total Protein Albumin Triglycerides HDL Cholesterol Folate Urine WBC (Auto) Urine Creatinine Urine Total Protein Vancomycin Trough 06/13/19 06/13/19 06/13/19 04:32 05:46 13:30 WBC RBC Hgb Hct MCV MCH MCHC RDW Plt Count Lymph % (Auto) [place] % (Auto) Eos % (Auto) Lymph # [place] # Eos # Seg Neutrophils % Seg Neuts % (Manual) Lymphocytes % (Manual) Monocytes % (Manual) Eosinophils % (Manual) Nucleated RBC % Seg Neutrophils # Seg Neutrophils # Man Lymphocytes # (Manual) Monocytes # (Manual) Eosinophils # (Manual) PT INR APTT Fibrinogen POC ABG pH ABG pH POC ABG pCO2 POC ABG pO2 ABG pO2 ABG HCO3 ABG O2 Saturation ABG Base Excess ABG Hemoglobin Oxyhemoglobin Sodium Potassium Chloride Carbon Dioxide BUN 27 H Creatinine 0.7 L Glucose 253 H POC Glucose 201 H 241 H Uric Acid Calcium Phosphorus Magnesium Iron TIBC AST ALT Total Creatine Kinase CK-MB (CK-2) Troponin T NT-Pro-B Natriuret Pep Total Protein Albumin Triglycerides HDL Cholesterol Folate Urine WBC (Auto) Urine Creatinine Urine Total Protein Vancomycin Trough 06/13/19 06/13/19 06/14/19 17:33 23:49 04:50 WBC RBC Hgb Hct MCV MCH MCHC RDW Plt Count Lymph % (Auto) [place] % (Auto) Eos % (Auto) Lymph # [place] # Eos # Seg Neutrophils % Seg Neuts % (Manual) Lymphocytes % (Manual) Monocytes % (Manual) Eosinophils % (Manual) Nucleated RBC % Seg Neutrophils # Seg Neutrophils # Man Lymphocytes # (Manual) Monocytes # (Manual) Eosinophils # (Manual) PT INR APTT Fibrinogen POC ABG pH ABG pH POC ABG pCO2 POC ABG pO2 ABG pO2 ABG HCO3 ABG O2 Saturation ABG Base Excess ABG Hemoglobin Oxyhemoglobin Sodium Potassium Chloride Carbon Dioxide BUN 37 H Creatinine Glucose 256 H POC Glucose 264 H 236 H Uric Acid Calcium Phosphorus Magnesium Iron TIBC AST ALT Total Creatine Kinase CK-MB (CK-2) Troponin T NT-Pro-B Natriuret Pep Total Protein Albumin Triglycerides HDL Cholesterol Folate Urine WBC (Auto) Urine Creatinine Urine Total Protein Vancomycin Trough 06/14/19 06/14/19 06/14/19 05:26 12:31 18:32 WBC RBC Hgb Hct MCV MCH MCHC RDW Plt Count Lymph % (Auto) [place] % (Auto) Eos % (Auto) Lymph # [place] # Eos # Seg Neutrophils % Seg Neuts % (Manual) Lymphocytes % (Manual) Monocytes % (Manual) Eosinophils % (Manual) Nucleated RBC % Seg Neutrophils # Seg Neutrophils # Man Lymphocytes # (Manual) Monocytes # (Manual) Eosinophils # (Manual) PT INR APTT Fibrinogen POC ABG pH ABG pH POC ABG pCO2 POC ABG pO2 ABG pO2 ABG HCO3 ABG O2 Saturation ABG Base Excess ABG Hemoglobin Oxyhemoglobin Sodium Potassium Chloride Carbon Dioxide BUN Creatinine Glucose POC Glucose 239 H 116 H 247 H Uric Acid Calcium Phosphorus Magnesium Iron TIBC AST ALT Total Creatine Kinase CK-MB (CK-2) Troponin T NT-Pro-B Natriuret Pep Total Protein Albumin Triglycerides HDL Cholesterol Folate Urine WBC (Auto) Urine Creatinine Urine Total Protein Vancomycin Trough 06/14/19 06/15/19 06/15/19 23:57 04:05 05:55 WBC RBC Hgb Hct MCV MCH MCHC RDW Plt Count Lymph % (Auto) [place] % (Auto) Eos % (Auto) Lymph # [place] # Eos # Seg Neutrophils % Seg Neuts % (Manual) Lymphocytes % (Manual) Monocytes % (Manual) Eosinophils % (Manual) Nucleated RBC % Seg Neutrophils # Seg Neutrophils # Man Lymphocytes # (Manual) Monocytes # (Manual) Eosinophils # (Manual) PT INR APTT Fibrinogen POC ABG pH ABG pH POC ABG pCO2 POC ABG pO2 ABG pO2 ABG HCO3 ABG O2 Saturation ABG Base Excess ABG Hemoglobin Oxyhemoglobin Sodium Potassium Chloride Carbon Dioxide BUN 46 H Creatinine 0.7 L Glucose 265 H POC Glucose 206 H 265 H Uric Acid Calcium Phosphorus Magnesium Iron TIBC AST ALT Total Creatine Kinase CK-MB (CK-2) Troponin T NT-Pro-B Natriuret Pep Total Protein Albumin Triglycerides HDL Cholesterol Folate Urine WBC (Auto) Urine Creatinine Urine Total Protein Vancomycin Trough 06/15/19 06/15/19 06/15/19 12:08 18:45 23:41 WBC RBC Hgb Hct MCV MCH MCHC RDW Plt Count Lymph % (Auto) [place] % (Auto) Eos % (Auto) Lymph # [place] # Eos # Seg Neutrophils % Seg Neuts % (Manual) Lymphocytes % (Manual) Monocytes % (Manual) Eosinophils % (Manual) Nucleated RBC % Seg Neutrophils # Seg Neutrophils # Man Lymphocytes # (Manual) Monocytes # (Manual) Eosinophils # (Manual) PT INR APTT Fibrinogen POC ABG pH ABG pH POC ABG pCO2 POC ABG pO2 ABG pO2 ABG HCO3 ABG O2 Saturation ABG Base Excess ABG Hemoglobin Oxyhemoglobin Sodium Potassium Chloride Carbon Dioxide BUN Creatinine Glucose POC Glucose 224 H 177 H 193 H Uric Acid Calcium Phosphorus Magnesium Iron TIBC AST ALT Total Creatine Kinase CK-MB (CK-2) Troponin T NT-Pro-B Natriuret Pep Total Protein Albumin Triglycerides HDL Cholesterol Folate Urine WBC (Auto) Urine Creatinine Urine Total Protein Vancomycin Trough 06/16/19 06/16/19 06/16/19 05:00 05:00 05:40 WBC 11.9 H RBC 3.24 L Hgb 9.0 L Hct 29.0 L MCV MCH MCHC 31 L RDW 18.6 H Plt Count 111 L Lymph % (Auto) [place] % (Auto) Eos % (Auto) Lymph # [place] # Eos # Seg Neutrophils % Seg Neuts % (Manual) 92.0 H Lymphocytes % (Manual) 2.0 L Monocytes % (Manual) Eosinophils % (Manual) Nucleated RBC % Seg Neutrophils # Seg Neutrophils # Man 10.9 H Lymphocytes # (Manual) 0.2 L Monocytes # (Manual) Eosinophils # (Manual) PT INR APTT Fibrinogen POC ABG pH ABG pH POC ABG pCO2 POC ABG pO2 ABG pO2 ABG HCO3 ABG O2 Saturation ABG Base Excess ABG Hemoglobin Oxyhemoglobin Sodium Potassium Chloride Carbon Dioxide 33 H BUN 49 H Creatinine 0.7 L Glucose 264 H POC Glucose 247 H Uric Acid Calcium Phosphorus Magnesium Iron TIBC AST ALT Total Creatine Kinase CK-MB (CK-2) Troponin T NT-Pro-B Natriuret Pep Total Protein Albumin Triglycerides HDL Cholesterol Folate Urine WBC (Auto) Urine Creatinine Urine Total Protein Vancomycin Trough 06/16/19 06/16/19 06/16/19 12:03 17:11 18:11 WBC RBC Hgb Hct MCV MCH MCHC RDW Plt Count Lymph % (Auto) [place] % (Auto) Eos % (Auto) Lymph # [place] # Eos # Seg Neutrophils % Seg Neuts % (Manual) Lymphocytes % (Manual) Monocytes % (Manual) Eosinophils % (Manual) Nucleated RBC % Seg Neutrophils # Seg Neutrophils # Man Lymphocytes # (Manual) Monocytes # (Manual) Eosinophils # (Manual) PT INR APTT Fibrinogen POC ABG pH ABG pH 7.289 L POC ABG pCO2 POC ABG pO2 ABG pO2 399.3 H ABG HCO3 30.1 H ABG O2 Saturation 99.6 H ABG Base Excess ABG Hemoglobin 8.6 L Oxyhemoglobin Sodium Potassium Chloride Carbon Dioxide BUN Creatinine Glucose POC Glucose 252 H 254 H Uric Acid Calcium Phosphorus Magnesium Iron TIBC AST ALT Total Creatine Kinase CK-MB (CK-2) Troponin T NT-Pro-B Natriuret Pep Total Protein Albumin Triglycerides HDL Cholesterol Folate Urine WBC (Auto) Urine Creatinine Urine Total Protein Vancomycin Trough 06/16/19 06/17/19 06/17/19 23:16 05:30 05:53 WBC RBC Hgb Hct MCV MCH MCHC RDW Plt Count Lymph % (Auto) [place] % (Auto) Eos % (Auto) Lymph # [place] # Eos # Seg Neutrophils % Seg Neuts % (Manual) Lymphocytes % (Manual) Monocytes % (Manual) Eosinophils % (Manual) Nucleated RBC % Seg Neutrophils # Seg Neutrophils # Man Lymphocytes # (Manual) Monocytes # (Manual) Eosinophils # (Manual) PT INR APTT Fibrinogen POC ABG pH ABG pH POC ABG pCO2 POC ABG pO2 ABG pO2 ABG HCO3 ABG O2 Saturation ABG Base Excess ABG Hemoglobin Oxyhemoglobin Sodium 147 H Potassium Chloride Carbon Dioxide 32 H BUN 60 H Creatinine Glucose 205 H POC Glucose 238 H 211 H Uric Acid Calcium Phosphorus Magnesium Iron TIBC AST ALT Total Creatine Kinase CK-MB (CK-2) Troponin T NT-Pro-B Natriuret Pep Total Protein Albumin Triglycerides HDL Cholesterol Folate Urine WBC (Auto) Urine Creatinine Urine Total Protein Vancomycin Trough 06/17/19 06/17/19 06/17/19 09:50 12:27 12:45 WBC RBC 2.79 L Hgb 8.2 L Hct 24.6 L MCV MCH MCHC RDW 18.5 H Plt Count 95 L Lymph % (Auto) [place] % (Auto) Eos % (Auto) Lymph # [place] # Eos # Seg Neutrophils % Seg Neuts % (Manual) Lymphocytes % (Manual) Monocytes % (Manual) Eosinophils % (Manual) Nucleated RBC % Seg Neutrophils # Seg Neutrophils # Man Lymphocytes # (Manual) Monocytes # (Manual) Eosinophils # (Manual) PT INR APTT Fibrinogen 194 L POC ABG pH ABG pH POC ABG pCO2 POC ABG pO2 ABG pO2 ABG HCO3 ABG O2 Saturation ABG Base Excess ABG Hemoglobin Oxyhemoglobin Sodium Potassium Chloride Carbon Dioxide BUN Creatinine Glucose POC Glucose 224 H Uric Acid Calcium Phosphorus Magnesium Iron TIBC AST ALT Total Creatine Kinase CK-MB (CK-2) Troponin T NT-Pro-B Natriuret Pep Total Protein Albumin Triglycerides HDL Cholesterol Folate Urine WBC (Auto) Urine Creatinine Urine Total Protein Vancomycin Trough 06/17/19 06/17/19 06/17/19 18:41 22:00 23:23 WBC RBC Hgb Hct MCV MCH MCHC RDW Plt Count Lymph % (Auto) [place] % (Auto) Eos % (Auto) Lymph # [place] # Eos # Seg Neutrophils % Seg Neuts % (Manual) Lymphocytes % (Manual) Monocytes % (Manual) Eosinophils % (Manual) Nucleated RBC % Seg Neutrophils # Seg Neutrophils # Man Lymphocytes # (Manual) Monocytes # (Manual) Eosinophils # (Manual) PT INR APTT Fibrinogen POC ABG pH ABG pH POC ABG pCO2 POC ABG pO2 ABG pO2 ABG HCO3 ABG O2 Saturation ABG Base Excess ABG Hemoglobin Oxyhemoglobin Sodium Potassium Chloride Carbon Dioxide BUN Creatinine Glucose POC Glucose 198 H 166 H 171 H Uric Acid Calcium Phosphorus Magnesium Iron TIBC AST ALT Total Creatine Kinase CK-MB (CK-2) Troponin T NT-Pro-B Natriuret Pep Total Protein Albumin Triglycerides HDL Cholesterol Folate Urine WBC (Auto) Urine Creatinine Urine Total Protein Vancomycin Trough 06/17/19 06/18/19 06/18/19 Unknown 03:50 04:25 WBC RBC Hgb Hct MCV MCH MCHC RDW Plt Count Lymph % (Auto) [place] % (Auto) Eos % (Auto) Lymph # [place] # Eos # Seg Neutrophils % Seg Neuts % (Manual) Lymphocytes % (Manual) Monocytes % (Manual) Eosinophils % (Manual) Nucleated RBC % Seg Neutrophils # Seg Neutrophils # Man Lymphocytes # (Manual) Monocytes # (Manual) Eosinophils # (Manual) PT INR APTT Fibrinogen POC ABG pH ABG pH 7.564 H 7.499 H POC ABG pCO2 POC ABG pO2 ABG pO2 238.6 H 130.8 H ABG HCO3 33.6 H 32.5 H ABG O2 Saturation 99.4 H ABG Base Excess 10.6 H 8.5 H ABG Hemoglobin 7.9 L 8.8 L Oxyhemoglobin Sodium 151 H Potassium 3.4 L Chloride Carbon Dioxide BUN 66 H Creatinine Glucose 189 H POC Glucose Uric Acid Calcium Phosphorus Magnesium Iron TIBC AST ALT Total Creatine Kinase CK-MB (CK-2) Troponin T NT-Pro-B Natriuret Pep Total Protein Albumin Triglycerides HDL Cholesterol Folate Urine WBC (Auto) Urine Creatinine Urine Total Protein Vancomycin Trough 06/18/19 06/18/19 06/18/19 05:25 05:27 11:50 WBC RBC 2.61 L Hgb 7.4 L Hct 22.9 L MCV MCH MCHC RDW 19.9 H Plt Count 81 L Lymph % (Auto) 12.9 L [place] % (Auto) 7.7 H Eos % (Auto) Lymph # 1.1 L [place] # Eos # Seg Neutrophils % 77.4 H Seg Neuts % (Manual) Lymphocytes % (Manual) Monocytes % (Manual) Eosinophils % (Manual) Nucleated RBC % Seg Neutrophils # Seg Neutrophils # Man Lymphocytes # (Manual) Monocytes # (Manual) Eosinophils # (Manual) PT INR APTT Fibrinogen POC ABG pH ABG pH POC ABG pCO2 POC ABG pO2 ABG pO2 ABG HCO3 ABG O2 Saturation ABG Base Excess ABG Hemoglobin Oxyhemoglobin Sodium Potassium Chloride Carbon Dioxide BUN Creatinine Glucose POC Glucose 186 H 263 H Uric Acid Calcium Phosphorus Magnesium Iron TIBC AST ALT Total Creatine Kinase CK-MB (CK-2) Troponin T NT-Pro-B Natriuret Pep Total Protein Albumin Triglycerides HDL Cholesterol Folate Urine WBC (Auto) Urine Creatinine Urine Total Protein Vancomycin Trough 06/18/19 06/18/19 06/18/19 18:35 21:31 23:21 WBC RBC Hgb Hct MCV MCH MCHC RDW Plt Count Lymph % (Auto) [place] % (Auto) Eos % (Auto) Lymph # [place] # Eos # Seg Neutrophils % Seg Neuts % (Manual) Lymphocytes % (Manual) Monocytes % (Manual) Eosinophils % (Manual) Nucleated RBC % Seg Neutrophils # Seg Neutrophils # Man Lymphocytes # (Manual) Monocytes # (Manual) Eosinophils # (Manual) PT INR APTT Fibrinogen POC ABG pH ABG pH POC ABG pCO2 POC ABG pO2 ABG pO2 ABG HCO3 ABG O2 Saturation ABG Base Excess ABG Hemoglobin Oxyhemoglobin Sodium Potassium Chloride Carbon Dioxide BUN Creatinine Glucose POC Glucose 154 H 186 H 202 H Uric Acid Calcium Phosphorus Magnesium Iron TIBC AST ALT Total Creatine Kinase CK-MB (CK-2) Troponin T NT-Pro-B Natriuret Pep Total Protein Albumin Triglycerides HDL Cholesterol Folate Urine WBC (Auto) Urine Creatinine Urine Total Protein Vancomycin Trough 06/19/19 06/19/19 06/19/19 03:18 04:30 04:30 WBC RBC 2.65 L Hgb 7.5 L Hct 23.1 L MCV MCH MCHC RDW 19.4 H Plt Count 74 L Lymph % (Auto) 8.8 L [place] % (Auto) 9.4 H Eos % (Auto) 4.7 H Lymph # 0.6 L [place] # Eos # Seg Neutrophils % 76.6 H Seg Neuts % (Manual) Lymphocytes % (Manual) Monocytes % (Manual) Eosinophils % (Manual) Nucleated RBC % Seg Neutrophils # Seg Neutrophils # Man Lymphocytes # (Manual) Monocytes # (Manual) Eosinophils # (Manual) PT INR APTT Fibrinogen POC ABG pH ABG pH 7.452 H POC ABG pCO2 POC ABG pO2 ABG pO2 105.5 H ABG HCO3 32.3 H ABG O2 Saturation ABG Base Excess 7.6 H ABG Hemoglobin 6.9 L Oxyhemoglobin Sodium 150 H Potassium 3.3 L Chloride Carbon Dioxide 31 H BUN 56 H Creatinine Glucose 197 H POC Glucose Uric Acid Calcium Phosphorus Magnesium Iron TIBC AST ALT Total Creatine Kinase CK-MB (CK-2) Troponin T NT-Pro-B Natriuret Pep Total Protein Albumin Triglycerides 210 H HDL Cholesterol Folate Urine WBC (Auto) Urine Creatinine Urine Total Protein Vancomycin Trough 06/19/19 06/19/19 06/19/19 05:24 12:18 18:55 WBC RBC Hgb Hct MCV MCH MCHC RDW Plt Count Lymph % (Auto) [place] % (Auto) Eos % (Auto) Lymph # [place] # Eos # Seg Neutrophils % Seg Neuts % (Manual) Lymphocytes % (Manual) Monocytes % (Manual) Eosinophils % (Manual) Nucleated RBC % Seg Neutrophils # Seg Neutrophils # Man Lymphocytes # (Manual) Monocytes # (Manual) Eosinophils # (Manual) PT INR APTT Fibrinogen POC ABG pH ABG pH POC ABG pCO2 POC ABG pO2 ABG pO2 ABG HCO3 ABG O2 Saturation ABG Base Excess ABG Hemoglobin Oxyhemoglobin Sodium Potassium Chloride Carbon Dioxide BUN Creatinine Glucose POC Glucose 176 H 260 H 192 H Uric Acid Calcium Phosphorus Magnesium Iron TIBC AST ALT Total Creatine Kinase CK-MB (CK-2) Troponin T NT-Pro-B Natriuret Pep Total Protein Albumin Triglycerides HDL Cholesterol Folate Urine WBC (Auto) Urine Creatinine Urine Total Protein Vancomycin Trough 06/19/19 06/19/19 06/20/19 22:57 23:46 04:40 WBC RBC 2.79 L Hgb 7.9 L Hct 24.3 L MCV MCH MCHC RDW 19.6 H Plt Count 92 L Lymph % (Auto) 9.2 L [place] % (Auto) 12.0 H Eos % (Auto) 5.2 H Lymph # 0.9 L [place] # 1.2 H Eos # 0.5 H Seg Neutrophils % 73.3 H Seg Neuts % (Manual) Lymphocytes % (Manual) Monocytes % (Manual) Eosinophils % (Manual) Nucleated RBC % Seg Neutrophils # Seg Neutrophils # Man Lymphocytes # (Manual) Monocytes # (Manual) Eosinophils # (Manual) PT INR APTT Fibrinogen POC ABG pH ABG pH POC ABG pCO2 POC ABG pO2 ABG pO2 ABG HCO3 ABG O2 Saturation ABG Base Excess ABG Hemoglobin Oxyhemoglobin Sodium Potassium Chloride Carbon Dioxide BUN Creatinine Glucose POC Glucose 145 H 216 H Uric Acid Calcium Phosphorus Magnesium Iron TIBC AST ALT Total Creatine Kinase CK-MB (CK-2) Troponin T NT-Pro-B Natriuret Pep Total Protein Albumin Triglycerides HDL Cholesterol Folate Urine WBC (Auto) Urine Creatinine Urine Total Protein Vancomycin Trough 06/20/19 06/20/19 06/20/19 04:40 05:40 05:54 WBC RBC Hgb Hct MCV MCH MCHC RDW Plt Count Lymph % (Auto) [place] % (Auto) Eos % (Auto) Lymph # [place] # Eos # Seg Neutrophils % Seg Neuts % (Manual) Lymphocytes % (Manual) Monocytes % (Manual) Eosinophils % (Manual) Nucleated RBC % Seg Neutrophils # Seg Neutrophils # Man Lymphocytes # (Manual) Monocytes # (Manual) Eosinophils # (Manual) PT INR APTT Fibrinogen POC ABG pH ABG pH 7.455 H POC ABG pCO2 POC ABG pO2 ABG pO2 60.9 L ABG HCO3 30.3 H ABG O2 Saturation 92.3 L ABG Base Excess 5.8 H ABG Hemoglobin 8.2 L Oxyhemoglobin 90.1 L Sodium Potassium 3.5 L Chloride Carbon Dioxide BUN 59 H Creatinine Glucose 200 H POC Glucose 190 H Uric Acid Calcium Phosphorus Magnesium 1.60 L Iron TIBC AST ALT Total Creatine Kinase CK-MB (CK-2) Troponin T NT-Pro-B Natriuret Pep Total Protein Albumin Triglycerides HDL Cholesterol Folate Urine WBC (Auto) Urine Creatinine Urine Total Protein Vancomycin Trough 06/20/19 06/20/19 06/20/19 09:12 09:12 12:24 WBC RBC Hgb Hct MCV MCH MCHC RDW Plt Count Lymph % (Auto) [place] % (Auto) Eos % (Auto) Lymph # [place] # Eos # Seg Neutrophils % Seg Neuts % (Manual) Lymphocytes % (Manual) Monocytes % (Manual) Eosinophils % (Manual) Nucleated RBC % Seg Neutrophils # Seg Neutrophils # Man Lymphocytes # (Manual) Monocytes # (Manual) Eosinophils # (Manual) PT INR APTT Fibrinogen POC ABG pH ABG pH POC ABG pCO2 POC ABG pO2 ABG pO2 ABG HCO3 ABG O2 Saturation ABG Base Excess ABG Hemoglobin Oxyhemoglobin Sodium Potassium Chloride Carbon Dioxide BUN Creatinine Glucose POC Glucose 225 H Uric Acid Calcium Phosphorus Magnesium Iron 45 L TIBC 110 L AST ALT Total Creatine Kinase CK-MB (CK-2) Troponin T NT-Pro-B Natriuret Pep Total Protein Albumin Triglycerides HDL Cholesterol Folate 7.01 L Urine WBC (Auto) Urine Creatinine Urine Total Protein Vancomycin Trough 06/20/19 06/20/19 06/20/19 17:42 21:55 23:24 WBC RBC Hgb Hct MCV MCH MCHC RDW Plt Count Lymph % (Auto) [place] % (Auto) Eos % (Auto) Lymph # [place] # Eos # Seg Neutrophils % Seg Neuts % (Manual) Lymphocytes % (Manual) Monocytes % (Manual) Eosinophils % (Manual) Nucleated RBC % Seg Neutrophils # Seg Neutrophils # Man Lymphocytes # (Manual) Monocytes # (Manual) Eosinophils # (Manual) PT INR APTT Fibrinogen POC ABG pH ABG pH POC ABG pCO2 POC ABG pO2 ABG pO2 ABG HCO3 ABG O2 Saturation ABG Base Excess ABG Hemoglobin Oxyhemoglobin Sodium Potassium Chloride Carbon Dioxide BUN Creatinine Glucose POC Glucose 255 H 218 H 215 H Uric Acid Calcium Phosphorus Magnesium Iron TIBC AST ALT Total Creatine Kinase CK-MB (CK-2) Troponin T NT-Pro-B Natriuret Pep Total Protein Albumin Triglycerides HDL Cholesterol Folate Urine WBC (Auto) Urine Creatinine Urine Total Protein Vancomycin Trough 06/21/19 06/21/19 06/21/19 03:32 03:40 05:20 WBC 12.8 H RBC 3.03 L Hgb 8.5 L Hct 26.2 L MCV MCH MCHC RDW 19.4 H Plt Count 131 L Lymph % (Auto) [place] % (Auto) Eos % (Auto) Lymph # [place] # Eos # Seg Neutrophils % Seg Neuts % (Manual) 78.0 H Lymphocytes % (Manual) 5.0 L Monocytes % (Manual) 11.0 H Eosinophils % (Manual) Nucleated RBC % Seg Neutrophils # Seg Neutrophils # Man 10.0 H Lymphocytes # (Manual) 0.6 L Monocytes # (Manual) 1.4 H Eosinophils # (Manual) 0.5 H PT INR APTT Fibrinogen POC ABG pH ABG pH 7.476 H POC ABG pCO2 POC ABG pO2 ABG pO2 162.0 H ABG HCO3 26.8 H ABG O2 Saturation 99.1 H ABG Base Excess 3.1 H ABG Hemoglobin 8.6 L Oxyhemoglobin Sodium Potassium Chloride Carbon Dioxide BUN Creatinine Glucose POC Glucose 202 H Uric Acid Calcium Phosphorus Magnesium Iron TIBC AST ALT Total Creatine Kinase CK-MB (CK-2) Troponin T NT-Pro-B Natriuret Pep Total Protein Albumin Triglycerides HDL Cholesterol Folate Urine WBC (Auto) Urine Creatinine Urine Total Protein Vancomycin Trough 01/27/20 01/27/20 01/27/20 05:20 12:30 18:18 WBC RBC Hgb Hct MCV MCH MCHC RDW Plt Count Lymph % (Auto) [place] % (Auto) Eos % (Auto) Lymph # [place] # Eos # Seg Neutrophils % Seg Neuts % (Manual) Lymphocytes % (Manual) Monocytes % (Manual) Eosinophils % (Manual) Nucleated RBC % Seg Neutrophils # Seg Neutrophils # Man Lymphocytes # (Manual) Monocytes # (Manual) Eosinophils # (Manual) PT INR APTT Fibrinogen POC ABG pH ABG pH POC ABG pCO2 POC ABG pO2 ABG pO2 ABG HCO3 ABG O2 Saturation ABG Base Excess ABG Hemoglobin Oxyhemoglobin Sodium Potassium Chloride 97.7 L Carbon Dioxide BUN 69 H Creatinine Glucose 239 H POC Glucose 176 H 187 H Uric Acid Calcium Phosphorus Magnesium 2.40 H Iron TIBC AST ALT Total Creatine Kinase CK-MB (CK-2) Troponin T NT-Pro-B Natriuret Pep Total Protein Albumin Triglycerides HDL Cholesterol Folate Urine WBC (Auto) Urine Creatinine Urine Total Protein Vancomycin Trough 06/22/19 06/22/19 06/22/19 04:11 05:30 05:30 WBC 12.6 H RBC 3.10 L Hgb 8.7 L Hct 27.0 L MCV MCH MCHC RDW 19.8 H Plt Count Lymph % (Auto) [place] % (Auto) Eos % (Auto) Lymph # [place] # Eos # Seg Neutrophils % Seg Neuts % (Manual) Lymphocytes % (Manual) Monocytes % (Manual) 10.0 H Eosinophils % (Manual) Nucleated RBC % Seg Neutrophils # Seg Neutrophils # Man 8.7 H Lymphocytes # (Manual) Monocytes # (Manual) 1.3 H Eosinophils # (Manual) PT INR APTT Fibrinogen POC ABG pH ABG pH POC ABG pCO2 POC ABG pO2 ABG pO2 ABG HCO3 27.7 H ABG O2 Saturation ABG Base Excess 3.3 H ABG Hemoglobin 8.5 L Oxyhemoglobin 94.9 L Sodium Potassium Chloride Carbon Dioxide BUN 66 H Creatinine Glucose 103 H POC Glucose Uric Acid Calcium Phosphorus Magnesium Iron TIBC AST ALT Total Creatine Kinase CK-MB (CK-2) Troponin T NT-Pro-B Natriuret Pep Total Protein Albumin Triglycerides HDL Cholesterol Folate Urine WBC (Auto) Urine Creatinine Urine Total Protein Vancomycin Trough 06/22/19 06/22/19 06/23/19 17:43 23:25 02:00 WBC RBC Hgb Hct MCV MCH MCHC RDW Plt Count Lymph % (Auto) [place] % (Auto) Eos % (Auto) Lymph # [place] # Eos # Seg Neutrophils % Seg Neuts % (Manual) Lymphocytes % (Manual) Monocytes % (Manual) Eosinophils % (Manual) Nucleated RBC % Seg Neutrophils # Seg Neutrophils # Man Lymphocytes # (Manual) Monocytes # (Manual) Eosinophils # (Manual) PT INR APTT Fibrinogen POC ABG pH ABG pH 7.469 H POC ABG pCO2 POC ABG pO2 ABG pO2 58.7 L ABG HCO3 28.0 H ABG O2 Saturation 94.6 L ABG Base Excess 4.0 H ABG Hemoglobin 7.1 L Oxyhemoglobin 92.2 L Sodium Potassium Chloride Carbon Dioxide BUN Creatinine Glucose POC Glucose 143 H 106 H Uric Acid Calcium Phosphorus Magnesium Iron TIBC AST ALT Total Creatine Kinase CK-MB (CK-2) Troponin T NT-Pro-B Natriuret Pep Total Protein Albumin Triglycerides HDL Cholesterol Folate Urine WBC (Auto) Urine Creatinine Urine Total Protein Vancomycin Trough 06/23/19 06/23/19 06/23/19 05:24 05:24 11:43 WBC 12.6 H RBC 2.96 L Hgb 8.3 L Hct 25.5 L MCV MCH MCHC RDW 20.2 H Plt Count Lymph % (Auto) [place] % (Auto) Eos % (Auto) Lymph # [place] # Eos # Seg Neutrophils % Seg Neuts % (Manual) Lymphocytes % (Manual) 12.0 L Monocytes % (Manual) 11.0 H Eosinophils % (Manual) 6.0 H Nucleated RBC % Seg Neutrophils # Seg Neutrophils # Man 8.8 H Lymphocytes # (Manual) Monocytes # (Manual) 1.4 H Eosinophils # (Manual) 0.8 H PT INR APTT Fibrinogen POC ABG pH ABG pH POC ABG pCO2 POC ABG pO2 ABG pO2 ABG HCO3 ABG O2 Saturation ABG Base Excess ABG Hemoglobin Oxyhemoglobin Sodium 146 H Potassium 3.5 L Chloride Carbon Dioxide BUN 48 H Creatinine Glucose 123 H POC Glucose 120 H Uric Acid Calcium Phosphorus Magnesium Iron TIBC AST ALT Total Creatine Kinase CK-MB (CK-2) Troponin T NT-Pro-B Natriuret Pep Total Protein Albumin Triglycerides HDL Cholesterol Folate Urine WBC (Auto) Urine Creatinine Urine Total Protein Vancomycin Trough 06/23/19 06/24/19 06/24/19 17:39 06:53 06:53 WBC 12.3 H RBC 2.87 L Hgb 8.0 L Hct 24.9 L MCV MCH MCHC RDW 20.5 H Plt Count Lymph % (Auto) [place] % (Auto) 8.8 H Eos % (Auto) 4.4 H Lymph # [place] # 1.1 H Eos # 0.5 H Seg Neutrophils % Seg Neuts % (Manual) Lymphocytes % (Manual) Monocytes % (Manual) Eosinophils % (Manual) Nucleated RBC % Seg Neutrophils # Seg Neutrophils # Man Lymphocytes # (Manual) Monocytes # (Manual) Eosinophils # (Manual) PT INR APTT Fibrinogen POC ABG pH ABG pH POC ABG pCO2 POC ABG pO2 ABG pO2 ABG HCO3 ABG O2 Saturation ABG Base Excess ABG Hemoglobin Oxyhemoglobin Sodium Potassium Chloride 107.1 H Carbon Dioxide 21 L BUN 29 H Creatinine 0.6 L Glucose 117 H POC Glucose 111 H Uric Acid Calcium Phosphorus Magnesium 1.60 L Iron TIBC AST ALT Total Creatine Kinase CK-MB (CK-2) Troponin T NT-Pro-B Natriuret Pep Total Protein Albumin Triglycerides HDL Cholesterol Folate Urine WBC (Auto) Urine Creatinine Urine Total Protein Vancomycin Trough 06/24/19 06/24/19 06/24/19 12:12 18:01 23:20 WBC RBC Hgb Hct MCV MCH MCHC RDW Plt Count Lymph % (Auto) [place] % (Auto) Eos % (Auto) Lymph # [place] # Eos # Seg Neutrophils % Seg Neuts % (Manual) Lymphocytes % (Manual) Monocytes % (Manual) Eosinophils % (Manual) Nucleated RBC % Seg Neutrophils # Seg Neutrophils # Man Lymphocytes # (Manual) Monocytes # (Manual) Eosinophils # (Manual) PT INR APTT Fibrinogen POC ABG pH ABG pH POC ABG pCO2 POC ABG pO2 ABG pO2 ABG HCO3 ABG O2 Saturation ABG Base Excess ABG Hemoglobin Oxyhemoglobin Sodium Potassium Chloride Carbon Dioxide BUN Creatinine Glucose POC Glucose 158 H 133 H 106 H Uric Acid Calcium Phosphorus Magnesium Iron TIBC AST ALT Total Creatine Kinase CK-MB (CK-2) Troponin T NT-Pro-B Natriuret Pep Total Protein Albumin Triglycerides HDL Cholesterol Folate Urine WBC (Auto) Urine Creatinine Urine Total Protein Vancomycin Trough 06/25/19 06/25/19 06/25/19 04:46 04:46 05:36 WBC 12.3 H RBC 2.98 L Hgb 8.3 L Hct 26.4 L MCV MCH MCHC 31 L RDW 20.1 H Plt Count Lymph % (Auto) [place] % (Auto) Eos % (Auto) Lymph # [place] # Eos # Seg Neutrophils % Seg Neuts % (Manual) Lymphocytes % (Manual) Monocytes % (Manual) 10.0 H Eosinophils % (Manual) Nucleated RBC % Seg Neutrophils # Seg Neutrophils # Man 8.1 H Lymphocytes # (Manual) Monocytes # (Manual) 1.2 H Eosinophils # (Manual) PT INR APTT Fibrinogen POC ABG pH ABG pH POC ABG pCO2 POC ABG pO2 ABG pO2 ABG HCO3 ABG O2 Saturation ABG Base Excess ABG Hemoglobin Oxyhemoglobin Sodium 148 H Potassium Chloride 108.0 H Carbon Dioxide BUN 21 H Creatinine 0.7 L Glucose 120 H POC Glucose 121 H Uric Acid Calcium Phosphorus Magnesium Iron TIBC AST ALT Total Creatine Kinase CK-MB (CK-2) Troponin T NT-Pro-B Natriuret Pep Total Protein Albumin Triglycerides HDL Cholesterol Folate Urine WBC (Auto) Urine Creatinine Urine Total Protein Vancomycin Trough 06/25/19 06/25/19 06/26/19 14:02 18:30 00:01 WBC RBC Hgb Hct MCV MCH MCHC RDW Plt Count Lymph % (Auto) [place] % (Auto) Eos % (Auto) Lymph # [place] # Eos # Seg Neutrophils % Seg Neuts % (Manual) Lymphocytes % (Manual) Monocytes % (Manual) Eosinophils % (Manual) Nucleated RBC % Seg Neutrophils # Seg Neutrophils # Man Lymphocytes # (Manual) Monocytes # (Manual) Eosinophils # (Manual) PT INR APTT Fibrinogen POC ABG pH ABG pH POC ABG pCO2 POC ABG pO2 ABG pO2 ABG HCO3 ABG O2 Saturation ABG Base Excess ABG Hemoglobin Oxyhemoglobin Sodium Potassium Chloride Carbon Dioxide BUN Creatinine Glucose POC Glucose 125 H 145 H 142 H Uric Acid Calcium Phosphorus Magnesium Iron TIBC AST ALT Total Creatine Kinase CK-MB (CK-2) Troponin T NT-Pro-B Natriuret Pep Total Protein Albumin Triglycerides HDL Cholesterol Folate Urine WBC (Auto) Urine Creatinine Urine Total Protein Vancomycin Trough 06/26/19 06/26/19 06/26/19 04:43 04:43 05:41 WBC RBC 3.02 L Hgb 8.6 L Hct 27.0 L MCV MCH MCHC RDW 20.4 H Plt Count Lymph % (Auto) [place] % (Auto) Eos % (Auto) Lymph # [place] # Eos # Seg Neutrophils % Seg Neuts % (Manual) Lymphocytes % (Manual) Monocytes % (Manual) 9.0 H Eosinophils % (Manual) Nucleated RBC % Seg Neutrophils # Seg Neutrophils # Man Lymphocytes # (Manual) Monocytes # (Manual) 1.0 H Eosinophils # (Manual) PT INR APTT Fibrinogen POC ABG pH ABG pH POC ABG pCO2 POC ABG pO2 ABG pO2 ABG HCO3 ABG O2 Saturation ABG Base Excess ABG Hemoglobin Oxyhemoglobin Sodium Potassium Chloride Carbon Dioxide BUN Creatinine 0.7 L Glucose 111 H POC Glucose 110 H Uric Acid Calcium Phosphorus Magnesium 1.60 L Iron TIBC AST ALT Total Creatine Kinase CK-MB (CK-2) Troponin T NT-Pro-B Natriuret Pep Total Protein Albumin Triglycerides HDL Cholesterol Folate Urine WBC (Auto) Urine Creatinine Urine Total Protein Vancomycin Trough 06/26/19 06/26/19 11:55 18:07 WBC RBC Hgb Hct MCV MCH MCHC RDW Plt Count Lymph % (Auto) [place] % (Auto) Eos % (Auto) Lymph # [place] # Eos # Seg Neutrophils % Seg Neuts % (Manual) Lymphocytes % (Manual) Monocytes % (Manual) Eosinophils % (Manual) Nucleated RBC % Seg Neutrophils # Seg Neutrophils # Man Lymphocytes # (Manual) Monocytes # (Manual) Eosinophils # (Manual) PT INR APTT Fibrinogen POC ABG pH ABG pH POC ABG pCO2 POC ABG pO2 ABG pO2 ABG HCO3 ABG O2 Saturation ABG Base Excess ABG Hemoglobin Oxyhemoglobin Sodium Potassium Chloride Carbon Dioxide BUN Creatinine Glucose POC Glucose 159 H 107 H Uric Acid Calcium Phosphorus Magnesium Iron TIBC AST ALT Total Creatine Kinase CK-MB (CK-2) Troponin T NT-Pro-B Natriuret Pep Total Protein Albumin Triglycerides HDL Cholesterol Folate Urine WBC (Auto) Urine Creatinine Urine Total Protein Vancomycin Trough
--- NOTE | 2019-06-27 10:11 | Progress Note ---
Subjective Date of service: 06/27/19 Principal diagnosis: anemia - LOw PLT Interval history: asked by Dr. Chen to do detailed assessment,,, this am the exam is documented that patient awake and can follow simple command ie stick ou the toggue and squeeze hands thuis clearly is c/w what Dr. Chen described in call to me... this is clear documented improvement from my prior notes over the last months ( suspect the severe slowing seen on EEG's could have been sedating meds) Objective - Vital Sign Vital Signs - 12hr 06/26/19 06/26/19 06/26/19 22:15 22:31 22:45 Temperature Pulse Rate 89 89 77 Pulse Rate [ From Monitor] Respiratory 10 L 12 19 Rate Blood Pressure 166/103 136/86 136/86 O2 Sat by Pulse 94 95 97 Oximetry O2 Sat by Pulse Oximetry [ Assessment] 06/26/19 06/26/19 06/26/19 23:01 23:15 23:31 Temperature Pulse Rate 84 101 H 85 Pulse Rate [ From Monitor] Respiratory 13 16 17 Rate Blood Pressure 136/86 128/87 133/108 O2 Sat by Pulse 99 100 99 Oximetry O2 Sat by Pulse Oximetry [ Assessment] 06/26/19 06/26/19 06/27/19 23:45 23:56 00:01 Temperature 99.4 F Pulse Rate 76 79 Pulse Rate [ From Monitor] Respiratory 15 17 Rate Blood Pressure 133/108 160/109 O2 Sat by Pulse 100 98 Oximetry O2 Sat by Pulse Oximetry [ Assessment] 06/27/19 06/27/19 06/27/19 00:15 00:20 00:31 Temperature Pulse Rate 85 82 Pulse Rate [ From Monitor] Respiratory 19 26 H Rate Blood Pressure 160/109 153/105 O2 Sat by Pulse 100 99 97 Oximetry O2 Sat by Pulse Oximetry [ Assessment] 06/27/19 06/27/19 06/27/19 00:45 01:00 01:13 Temperature Pulse Rate 92 H 110 H 82 Pulse Rate [ 81 From Monitor] Respiratory 36 H 23 22 Rate Blood Pressure 179/97 172/100 O2 Sat by Pulse 88 81 L 100 Oximetry O2 Sat by Pulse Oximetry [ Assessment] 06/27/19 06/27/19 06/27/19 01:15 01:30 01:45 Temperature Pulse Rate 96 H 91 H Pulse Rate [ From Monitor] Respiratory 22 34 H Rate Blood Pressure 164/97 155/99 165/113 O2 Sat by Pulse 97 96 77 L Oximetry O2 Sat by Pulse Oximetry [ Assessment] 06/27/19 06/27/19 06/27/19 02:00 02:15 02:30 Temperature Pulse Rate 94 H 86 88 Pulse Rate [ From Monitor] Respiratory 22 25 H 16 Rate Blood Pressure 163/106 164/93 159/102 O2 Sat by Pulse 90 94 95 Oximetry O2 Sat by Pulse Oximetry [ Assessment] 06/27/19 06/27/19 06/27/19 02:45 03:00 03:13 Temperature Pulse Rate 87 93 H 93 H Pulse Rate [ 81 From Monitor] Respiratory 27 H 22 22 Rate Blood Pressure 163/97 146/88 O2 Sat by Pulse 96 99 100 Oximetry O2 Sat by Pulse Oximetry [ Assessment] 06/27/19 06/27/19 06/27/19 03:15 03:30 03:42 Temperature 99.4 F Pulse Rate 94 H 93 H Pulse Rate [ From Monitor] Respiratory 27 H 31 H Rate Blood Pressure 161/104 156/104 O2 Sat by Pulse 97 97 Oximetry O2 Sat by Pulse Oximetry [ Assessment] 06/27/19 06/27/19 06/27/19 03:45 04:00 04:15 Temperature Pulse Rate 91 H 89 93 H Pulse Rate [ From Monitor] Respiratory 34 H 18 15 Rate Blood Pressure 152/103 162/85 161/104 O2 Sat by Pulse 97 97 99 Oximetry O2 Sat by Pulse Oximetry [ Assessment] 06/27/19 06/27/19 06/27/19 04:25 04:31 04:45 Temperature Pulse Rate 93 H 87 92 H Pulse Rate [ 81 From Monitor] Respiratory 22 14 17 Rate Blood Pressure 146/101 146/101 O2 Sat by Pulse 100 100 100 Oximetry O2 Sat by Pulse Oximetry [ Assessment] 06/27/19 06/27/19 06/27/19 05:00 05:15 05:30 Temperature Pulse Rate 91 H 96 H 87 Pulse Rate [ From Monitor] Respiratory 20 27 H 16 Rate Blood Pressure 164/89 186/97 158/87 O2 Sat by Pulse 100 92 95 Oximetry O2 Sat by Pulse Oximetry [ Assessment] 06/27/19 06/27/19 06/27/19 05:45 06:00 06:05 Temperature Pulse Rate 97 H 99 H Pulse Rate [ From Monitor] Respiratory 12 27 H 30 H Rate Blood Pressure 175/93 146/90 O2 Sat by Pulse 93 99 Oximetry O2 Sat by Pulse Oximetry [ Assessment] 06/27/19 06/27/19 06/27/19 06:08 06:15 08:21 Temperature Pulse Rate Pulse Rate [ From Monitor] Respiratory 30 H Rate Blood Pressure 148/79 O2 Sat by Pulse 99 Oximetry O2 Sat by Pulse 99 Oximetry [ Assessment] 06/27/19 06/27/19 09:02 09:03 Temperature Pulse Rate 92 H 92 H Pulse Rate [ From Monitor] Respiratory Rate Blood Pressure 209/91 209/91 O2 Sat by Pulse Oximetry O2 Sat by Pulse Oximetry [ Assessment] - Laboratory Findings CBC and BMP: 06/26/19 04:43 06/26/19 04:43 Abnormal Lab Findings: Abnormal Labs 05/01/19 05/01/19 05/01/19 17:50 19:26 22:36 WBC RBC Hgb Hct MCV MCH MCHC RDW Plt Count Lymph % (Auto) [place] % (Auto) Eos % (Auto) Lymph # [place] # Eos # Seg Neutrophils % Seg Neuts % (Manual) Lymphocytes % (Manual) Monocytes % (Manual) Eosinophils % (Manual) Nucleated RBC % Seg Neutrophils # Seg Neutrophils # Man Lymphocytes # (Manual) Monocytes # (Manual) Eosinophils # (Manual) PT INR APTT Fibrinogen POC ABG pH 7.272 L 7.331 L ABG pH POC ABG pCO2 52.8 H POC ABG pO2 ABG pO2 ABG HCO3 ABG O2 Saturation ABG Base Excess ABG Hemoglobin Oxyhemoglobin Sodium 136 L Potassium 6.5 H* Chloride 97.2 L Carbon Dioxide BUN 60 H Creatinine Glucose 113 H POC Glucose Uric Acid Calcium Phosphorus Magnesium 2.40 H Iron TIBC AST 139 H ALT 154 H Total Creatine Kinase CK-MB (CK-2) Troponin T NT-Pro-B Natriuret Pep Total Protein Albumin 3.8 L Triglycerides HDL Cholesterol Folate Urine WBC (Auto) Urine Creatinine Urine Total Protein Vancomycin Trough 05/01/19 05/01/19 05/01/19 Unknown Unknown Unknown WBC 16.1 H RBC Hgb Hct MCV MCH MCHC RDW 17.2 H Plt Count Lymph % (Auto) [place] % (Auto) 9.6 H Eos % (Auto) Lymph # [place] # 1.5 H Eos # Seg Neutrophils % 73.0 H Seg Neuts % (Manual) Lymphocytes % (Manual) Monocytes % (Manual) Eosinophils % (Manual) Nucleated RBC % Seg Neutrophils # 11.7 H Seg Neutrophils # Man Lymphocytes # (Manual) Monocytes # (Manual) Eosinophils # (Manual) PT 15.4 H INR 1.23 H APTT 22.7 L Fibrinogen POC ABG pH ABG pH POC ABG pCO2 POC ABG pO2 ABG pO2 ABG HCO3 ABG O2 Saturation ABG Base Excess ABG Hemoglobin Oxyhemoglobin Sodium Potassium Chloride Carbon Dioxide BUN Creatinine Glucose POC Glucose Uric Acid Calcium Phosphorus Magnesium Iron TIBC AST ALT Total Creatine Kinase CK-MB (CK-2) Troponin T NT-Pro-B Natriuret Pep 6831 H Total Protein Albumin Triglycerides HDL Cholesterol Folate Urine WBC (Auto) Urine Creatinine Urine Total Protein Vancomycin Trough 05/01/19 05/02/19 05/02/19 Unknown 00:06 00:06 WBC RBC Hgb Hct MCV MCH MCHC RDW Plt Count Lymph % (Auto) [place] % (Auto) Eos % (Auto) Lymph # [place] # Eos # Seg Neutrophils % Seg Neuts % (Manual) Lymphocytes % (Manual) Monocytes % (Manual) Eosinophils % (Manual) Nucleated RBC % Seg Neutrophils # Seg Neutrophils # Man Lymphocytes # (Manual) Monocytes # (Manual) Eosinophils # (Manual) PT INR APTT Fibrinogen POC ABG pH ABG pH POC ABG pCO2 POC ABG pO2 ABG pO2 ABG HCO3 ABG O2 Saturation ABG Base Excess ABG Hemoglobin Oxyhemoglobin Sodium Potassium Chloride Carbon Dioxide BUN Creatinine Glucose POC Glucose Uric Acid Calcium Phosphorus 4.90 H Magnesium Iron TIBC AST ALT Total Creatine Kinase 226 H CK-MB (CK-2) 5.7 H Troponin T 0.044 H NT-Pro-B Natriuret Pep Total Protein Albumin Triglycerides 182 H HDL Cholesterol 18 L Folate Urine WBC (Auto) Urine Creatinine Urine Total Protein Vancomycin Trough 05/02/19 05/02/19 05/02/19 02:08 04:40 04:41 WBC 17.6 H RBC Hgb Hct MCV MCH 27 L MCHC RDW 17.4 H Plt Count Lymph % (Auto) 10.2 L [place] % (Auto) 11.0 H Eos % (Auto) Lymph # [place] # 1.9 H Eos # Seg Neutrophils % 78.0 H Seg Neuts % (Manual) Lymphocytes % (Manual) Monocytes % (Manual) Eosinophils % (Manual) Nucleated RBC % Seg Neutrophils # 13.8 H Seg Neutrophils # Man Lymphocytes # (Manual) Monocytes # (Manual) Eosinophils # (Manual) PT INR APTT Fibrinogen POC ABG pH ABG pH POC ABG pCO2 46.8 H POC ABG pO2 63 L ABG pO2 ABG HCO3 ABG O2 Saturation ABG Base Excess ABG Hemoglobin Oxyhemoglobin Sodium Potassium Chloride 96.3 L Carbon Dioxide BUN 63 H Creatinine 1.7 H Glucose POC Glucose Uric Acid Calcium Phosphorus Magnesium Iron TIBC AST ALT Total Creatine Kinase CK-MB (CK-2) Troponin T NT-Pro-B Natriuret Pep Total Protein Albumin Triglycerides HDL Cholesterol Folate Urine WBC (Auto) Urine Creatinine Urine Total Protein Vancomycin Trough 05/02/19 05/02/19 05/02/19 04:41 04:41 16:05 WBC RBC Hgb Hct MCV MCH MCHC RDW Plt Count Lymph % (Auto) [place] % (Auto) Eos % (Auto) Lymph # [place] # Eos # Seg Neutrophils % Seg Neuts % (Manual) Lymphocytes % (Manual) Monocytes % (Manual) Eosinophils % (Manual) Nucleated RBC % Seg Neutrophils # Seg Neutrophils # Man Lymphocytes # (Manual) Monocytes # (Manual) Eosinophils # (Manual) PT INR APTT Fibrinogen POC ABG pH ABG pH POC ABG pCO2 POC ABG pO2 ABG pO2 66.6 L ABG HCO3 31.9 H ABG O2 Saturation 92.5 L ABG Base Excess 5.8 H ABG Hemoglobin 13.3 L Oxyhemoglobin 90.6 L Sodium Potassium Chloride 97.2 L Carbon Dioxide BUN 61 H Creatinine 1.8 H Glucose POC Glucose Uric Acid Calcium Phosphorus Magnesium Iron TIBC AST ALT Total Creatine Kinase CK-MB (CK-2) 5.2 H Troponin T 0.067 H D NT-Pro-B Natriuret Pep Total Protein Albumin Triglycerides HDL Cholesterol Folate Urine WBC (Auto) Urine Creatinine Urine Total Protein Vancomycin Trough 05/02/19 05/03/19 05/03/19 20:39 04:35 05:05 WBC 11.8 H RBC Hgb Hct MCV MCH 27 L MCHC 31 L RDW 17.2 H Plt Count Lymph % (Auto) [place] % (Auto) Eos % (Auto) Lymph # [place] # Eos # Seg Neutrophils % Seg Neuts % (Manual) Lymphocytes % (Manual) Monocytes % (Manual) Eosinophils % (Manual) Nucleated RBC % Seg Neutrophils # Seg Neutrophils # Man Lymphocytes # (Manual) Monocytes # (Manual) Eosinophils # (Manual) PT INR APTT Fibrinogen POC ABG pH ABG pH POC ABG pCO2 53.6 H 54.0 H POC ABG pO2 55 L 63 L ABG pO2 ABG HCO3 ABG O2 Saturation ABG Base Excess ABG Hemoglobin Oxyhemoglobin Sodium Potassium Chloride Carbon Dioxide BUN Creatinine Glucose POC Glucose Uric Acid Calcium Phosphorus Magnesium Iron TIBC AST ALT Total Creatine Kinase CK-MB (CK-2) Troponin T NT-Pro-B Natriuret Pep Total Protein Albumin Triglycerides HDL Cholesterol Folate Urine WBC (Auto) Urine Creatinine Urine Total Protein Vancomycin Trough 05/03/19 05/03/19 05/03/19 05:05 10:55 16:48 WBC RBC Hgb Hct MCV MCH MCHC RDW Plt Count Lymph % (Auto) [place] % (Auto) Eos % (Auto) Lymph # [place] # Eos # Seg Neutrophils % Seg Neuts % (Manual) Lymphocytes % (Manual) Monocytes % (Manual) Eosinophils % (Manual) Nucleated RBC % Seg Neutrophils # Seg Neutrophils # Man Lymphocytes # (Manual) Monocytes # (Manual) Eosinophils # (Manual) PT INR APTT Fibrinogen POC ABG pH 7.604 H ABG pH POC ABG pCO2 POC ABG pO2 58 L ABG pO2 ABG HCO3 ABG O2 Saturation ABG Base Excess ABG Hemoglobin Oxyhemoglobin Sodium Potassium Chloride Carbon Dioxide BUN 52 H Creatinine 1.9 H Glucose 103 H POC Glucose Uric Acid Calcium Phosphorus Magnesium Iron TIBC AST ALT Total Creatine Kinase CK-MB (CK-2) Troponin T NT-Pro-B Natriuret Pep Total Protein Albumin Triglycerides HDL Cholesterol Folate Urine WBC (Auto) 33.0 H Urine Creatinine Urine Total Protein Vancomycin Trough 05/04/19 05/04/19 05/04/19 04:49 06:50 06:50 WBC 16.0 H RBC Hgb Hct MCV MCH 27 L MCHC 31 L RDW 17.8 H Plt Count Lymph % (Auto) [place] % (Auto) Eos % (Auto) Lymph # [place] # Eos # Seg Neutrophils % Seg Neuts % (Manual) Lymphocytes % (Manual) Monocytes % (Manual) Eosinophils % (Manual) Nucleated RBC % Seg Neutrophils # Seg Neutrophils # Man Lymphocytes # (Manual) Monocytes # (Manual) Eosinophils # (Manual) PT INR APTT Fibrinogen POC ABG pH 7.273 L ABG pH POC ABG pCO2 POC ABG pO2 ABG pO2 ABG HCO3 ABG O2 Saturation ABG Base Excess ABG Hemoglobin Oxyhemoglobin Sodium 148 H Potassium 5.5 H Chloride Carbon Dioxide BUN 53 H Creatinine 3.3 H D Glucose 106 H POC Glucose Uric Acid Calcium 8.3 L Phosphorus Magnesium Iron TIBC AST ALT Total Creatine Kinase CK-MB (CK-2) Troponin T NT-Pro-B Natriuret Pep Total Protein Albumin Triglycerides HDL Cholesterol Folate Urine WBC (Auto) Urine Creatinine Urine Total Protein Vancomycin Trough 05/05/19 05/05/19 05/05/19 00:05 04:30 05:00 WBC RBC Hgb Hct MCV MCH MCHC RDW Plt Count Lymph % (Auto) [place] % (Auto) Eos % (Auto) Lymph # [place] # Eos # Seg Neutrophils % Seg Neuts % (Manual) Lymphocytes % (Manual) Monocytes % (Manual) Eosinophils % (Manual) Nucleated RBC % Seg Neutrophils # Seg Neutrophils # Man Lymphocytes # (Manual) Monocytes # (Manual) Eosinophils # (Manual) PT INR APTT Fibrinogen POC ABG pH 7.225 L ABG pH POC ABG pCO2 > 70 H POC ABG pO2 ABG pO2 ABG HCO3 ABG O2 Saturation ABG Base Excess ABG Hemoglobin Oxyhemoglobin Sodium 151 H Potassium 5.1 H Chloride Carbon Dioxide BUN 64 H Creatinine 3.5 H Glucose 117 H POC Glucose 141 H Uric Acid Calcium 7.5 L Phosphorus Magnesium Iron TIBC AST 93 H ALT 65 H Total Creatine Kinase CK-MB (CK-2) Troponin T NT-Pro-B Natriuret Pep Total Protein Albumin 2.9 L Triglycerides HDL Cholesterol Folate Urine WBC (Auto) Urine Creatinine Urine Total Protein Vancomycin Trough 05/05/19 05/05/19 05/05/19 05:00 12:02 17:46 WBC 12.0 H RBC Hgb 11.3 L Hct MCV MCH 27 L MCHC 30 L RDW 18.4 H Plt Count Lymph % (Auto) 7.9 L [place] % (Auto) 10.2 H Eos % (Auto) Lymph # 1.0 L [place] # 1.2 H Eos # Seg Neutrophils % 80.8 H Seg Neuts % (Manual) Lymphocytes % (Manual) Monocytes % (Manual) Eosinophils % (Manual) Nucleated RBC % Seg Neutrophils # 9.7 H Seg Neutrophils # Man Lymphocytes # (Manual) Monocytes # (Manual) Eosinophils # (Manual) PT INR APTT Fibrinogen POC ABG pH ABG pH POC ABG pCO2 POC ABG pO2 ABG pO2 ABG HCO3 ABG O2 Saturation ABG Base Excess ABG Hemoglobin Oxyhemoglobin Sodium Potassium Chloride Carbon Dioxide BUN Creatinine Glucose POC Glucose 125 H 112 H Uric Acid Calcium Phosphorus Magnesium Iron TIBC AST ALT Total Creatine Kinase CK-MB (CK-2) Troponin T NT-Pro-B Natriuret Pep Total Protein Albumin Triglycerides HDL Cholesterol Folate Urine WBC (Auto) Urine Creatinine Urine Total Protein Vancomycin Trough 05/05/19 05/06/19 05/06/19 23:42 03:58 04:45 WBC 11.4 H RBC Hgb 10.7 L Hct 34.2 L MCV MCH 27 L MCHC 31 L RDW 16.9 H Plt Count Lymph % (Auto) [place] % (Auto) Eos % (Auto) Lymph # [place] # Eos # Seg Neutrophils % Seg Neuts % (Manual) Lymphocytes % (Manual) Monocytes % (Manual) Eosinophils % (Manual) Nucleated RBC % Seg Neutrophils # Seg Neutrophils # Man Lymphocytes # (Manual) Monocytes # (Manual) Eosinophils # (Manual) PT INR APTT Fibrinogen POC ABG pH ABG pH POC ABG pCO2 62.4 H POC ABG pO2 111 H ABG pO2 ABG HCO3 ABG O2 Saturation ABG Base Excess ABG Hemoglobin Oxyhemoglobin Sodium Potassium Chloride Carbon Dioxide BUN Creatinine Glucose POC Glucose 128 H Uric Acid Calcium Phosphorus Magnesium Iron TIBC AST ALT Total Creatine Kinase CK-MB (CK-2) Troponin T NT-Pro-B Natriuret Pep Total Protein Albumin Triglycerides HDL Cholesterol Folate Urine WBC (Auto) Urine Creatinine Urine Total Protein Vancomycin Trough 05/06/19 05/06/19 05/06/19 04:45 05:33 12:30 WBC RBC Hgb Hct MCV MCH MCHC RDW Plt Count Lymph % (Auto) [place] % (Auto) Eos % (Auto) Lymph # [place] # Eos # Seg Neutrophils % Seg Neuts % (Manual) Lymphocytes % (Manual) Monocytes % (Manual) Eosinophils % (Manual) Nucleated RBC % Seg Neutrophils # Seg Neutrophils # Man Lymphocytes # (Manual) Monocytes # (Manual) Eosinophils # (Manual) PT INR APTT Fibrinogen POC ABG pH ABG pH POC ABG pCO2 POC ABG pO2 ABG pO2 ABG HCO3 ABG O2 Saturation ABG Base Excess ABG Hemoglobin Oxyhemoglobin Sodium 149 H Potassium Chloride Carbon Dioxide 31 H BUN 67 H Creatinine 3.2 H Glucose 125 H POC Glucose 117 H 116 H Uric Acid Calcium 7.5 L Phosphorus Magnesium Iron TIBC AST ALT Total Creatine Kinase CK-MB (CK-2) Troponin T NT-Pro-B Natriuret Pep Total Protein Albumin Triglycerides HDL Cholesterol Folate Urine WBC (Auto) Urine Creatinine Urine Total Protein Vancomycin Trough 05/06/19 05/06/19 05/07/19 18:34 23:16 05:22 WBC RBC Hgb Hct MCV MCH MCHC RDW Plt Count Lymph % (Auto) [place] % (Auto) Eos % (Auto) Lymph # [place] # Eos # Seg Neutrophils % Seg Neuts % (Manual) Lymphocytes % (Manual) Monocytes % (Manual) Eosinophils % (Manual) Nucleated RBC % Seg Neutrophils # Seg Neutrophils # Man Lymphocytes # (Manual) Monocytes # (Manual) Eosinophils # (Manual) PT INR APTT Fibrinogen POC ABG pH ABG pH POC ABG pCO2 POC ABG pO2 ABG pO2 ABG HCO3 ABG O2 Saturation ABG Base Excess ABG Hemoglobin Oxyhemoglobin Sodium Potassium Chloride Carbon Dioxide BUN Creatinine Glucose POC Glucose 128 H 143 H 166 H Uric Acid Calcium Phosphorus Magnesium Iron TIBC AST ALT Total Creatine Kinase CK-MB (CK-2) Troponin T NT-Pro-B Natriuret Pep Total Protein Albumin Triglycerides HDL Cholesterol Folate Urine WBC (Auto) Urine Creatinine Urine Total Protein Vancomycin Trough 05/07/19 05/07/19 05/07/19 06:33 07:03 09:35 WBC RBC Hgb Hct MCV MCH MCHC RDW Plt Count Lymph % (Auto) [place] % (Auto) Eos % (Auto) Lymph # [place] # Eos # Seg Neutrophils % Seg Neuts % (Manual) Lymphocytes % (Manual) Monocytes % (Manual) Eosinophils % (Manual) Nucleated RBC % Seg Neutrophils # Seg Neutrophils # Man Lymphocytes # (Manual) Monocytes # (Manual) Eosinophils # (Manual) PT INR APTT Fibrinogen POC ABG pH 7.263 L 7.288 L ABG pH POC ABG pCO2 POC ABG pO2 51 L 56 L ABG pO2 ABG HCO3 ABG O2 Saturation ABG Base Excess ABG Hemoglobin Oxyhemoglobin Sodium Potassium Chloride Carbon Dioxide BUN 76 H Creatinine 3.2 H Glucose 147 H POC Glucose Uric Acid Calcium 7.9 L Phosphorus Magnesium Iron TIBC AST ALT Total Creatine Kinase CK-MB (CK-2) Troponin T NT-Pro-B Natriuret Pep Total Protein Albumin Triglycerides HDL Cholesterol Folate Urine WBC (Auto) Urine Creatinine Urine Total Protein Vancomycin Trough 05/07/19 05/07/19 05/07/19 09:35 12:17 13:45 WBC 13.4 H RBC Hgb 11.6 L Hct MCV MCH 27 L MCHC 31 L RDW 17.5 H Plt Count Lymph % (Auto) [place] % (Auto) Eos % (Auto) Lymph # [place] # Eos # Seg Neutrophils % Seg Neuts % (Manual) Lymphocytes % (Manual) Monocytes % (Manual) Eosinophils % (Manual) Nucleated RBC % Seg Neutrophils # Seg Neutrophils # Man Lymphocytes # (Manual) Monocytes # (Manual) Eosinophils # (Manual) PT INR APTT Fibrinogen POC ABG pH ABG pH POC ABG pCO2 POC ABG pO2 ABG pO2 ABG HCO3 ABG O2 Saturation ABG Base Excess ABG Hemoglobin Oxyhemoglobin Sodium Potassium Chloride Carbon Dioxide BUN Creatinine Glucose POC Glucose 130 H Uric Acid 18.0 H Calcium Phosphorus Magnesium Iron TIBC AST ALT Total Creatine Kinase CK-MB (CK-2) Troponin T NT-Pro-B Natriuret Pep Total Protein Albumin Triglycerides HDL Cholesterol Folate Urine WBC (Auto) Urine Creatinine Urine Total Protein Vancomycin Trough 05/07/19 05/07/19 05/08/19 17:39 22:40 05:06 WBC RBC Hgb Hct MCV MCH MCHC RDW Plt Count Lymph % (Auto) [place] % (Auto) Eos % (Auto) Lymph # [place] # Eos # Seg Neutrophils % Seg Neuts % (Manual) Lymphocytes % (Manual) Monocytes % (Manual) Eosinophils % (Manual) Nucleated RBC % Seg Neutrophils # Seg Neutrophils # Man Lymphocytes # (Manual) Monocytes # (Manual) Eosinophils # (Manual) PT INR APTT Fibrinogen POC ABG pH ABG pH POC ABG pCO2 POC ABG pO2 ABG pO2 ABG HCO3 ABG O2 Saturation ABG Base Excess ABG Hemoglobin Oxyhemoglobin Sodium Potassium Chloride Carbon Dioxide BUN Creatinine Glucose POC Glucose 116 H 148 H Uric Acid Calcium Phosphorus Magnesium Iron TIBC AST ALT Total Creatine Kinase CK-MB (CK-2) Troponin T NT-Pro-B Natriuret Pep Total Protein Albumin Triglycerides HDL Cholesterol Folate Urine WBC (Auto) Urine Creatinine 292.8 H Urine Total Protein 269 H Vancomycin Trough 05/08/19 05/08/19 05/08/19 05:32 11:28 13:48 WBC RBC Hgb Hct MCV MCH MCHC RDW Plt Count Lymph % (Auto) [place] % (Auto) Eos % (Auto) Lymph # [place] # Eos # Seg Neutrophils % Seg Neuts % (Manual) Lymphocytes % (Manual) Monocytes % (Manual) Eosinophils % (Manual) Nucleated RBC % Seg Neutrophils # Seg Neutrophils # Man Lymphocytes # (Manual) Monocytes # (Manual) Eosinophils # (Manual) PT INR APTT Fibrinogen POC ABG pH ABG pH POC ABG pCO2 45.4 H POC ABG pO2 64 L ABG pO2 ABG HCO3 ABG O2 Saturation ABG Base Excess ABG Hemoglobin Oxyhemoglobin Sodium Potassium Chloride Carbon Dioxide BUN 73 H Creatinine 2.7 H Glucose 127 H POC Glucose 107 H Uric Acid Calcium 7.6 L Phosphorus Magnesium Iron TIBC AST ALT Total Creatine Kinase CK-MB (CK-2) Troponin T NT-Pro-B Natriuret Pep Total Protein Albumin Triglycerides HDL Cholesterol Folate Urine WBC (Auto) Urine Creatinine Urine Total Protein Vancomycin Trough 05/08/19 05/09/19 05/09/19 17:48 04:50 04:53 WBC RBC 3.07 L Hgb 8.5 L D Hct 29.3 L D MCV 96 H MCH MCHC 29 L RDW 18.1 H Plt Count Lymph % (Auto) [place] % (Auto) Eos % (Auto) Lymph # [place] # Eos # Seg Neutrophils % Seg Neuts % (Manual) Lymphocytes % (Manual) Monocytes % (Manual) Eosinophils % (Manual) Nucleated RBC % Seg Neutrophils # Seg Neutrophils # Man Lymphocytes # (Manual) Monocytes # (Manual) Eosinophils # (Manual) PT INR APTT Fibrinogen POC ABG pH 7.316 L ABG pH POC ABG pCO2 66.0 H POC ABG pO2 69 L ABG pO2 ABG HCO3 ABG O2 Saturation ABG Base Excess ABG Hemoglobin Oxyhemoglobin Sodium Potassium Chloride Carbon Dioxide BUN Creatinine Glucose POC Glucose 155 H Uric Acid Calcium Phosphorus Magnesium Iron TIBC AST ALT Total Creatine Kinase CK-MB (CK-2) Troponin T NT-Pro-B Natriuret Pep Total Protein Albumin Triglycerides HDL Cholesterol Folate Urine WBC (Auto) Urine Creatinine Urine Total Protein Vancomycin Trough 05/09/19 05/09/19 05/09/19 05:46 07:24 12:10 WBC RBC Hgb Hct MCV MCH MCHC RDW Plt Count Lymph % (Auto) [place] % (Auto) Eos % (Auto) Lymph # [place] # Eos # Seg Neutrophils % Seg Neuts % (Manual) Lymphocytes % (Manual) Monocytes % (Manual) Eosinophils % (Manual) Nucleated RBC % Seg Neutrophils # Seg Neutrophils # Man Lymphocytes # (Manual) Monocytes # (Manual) Eosinophils # (Manual) PT INR APTT Fibrinogen POC ABG pH ABG pH POC ABG pCO2 POC ABG pO2 ABG pO2 ABG HCO3 ABG O2 Saturation ABG Base Excess ABG Hemoglobin Oxyhemoglobin Sodium Potassium Chloride Carbon Dioxide BUN 73 H Creatinine 2.4 H Glucose 153 H POC Glucose 123 H 148 H Uric Acid Calcium 8.2 L Phosphorus Magnesium Iron TIBC AST 45 H ALT Total Creatine Kinase CK-MB (CK-2) Troponin T NT-Pro-B Natriuret Pep Total Protein 6.0 L Albumin 1.9 L Triglycerides HDL Cholesterol Folate Urine WBC (Auto) Urine Creatinine Urine Total Protein Vancomycin Trough 05/09/19 05/09/19 05/10/19 18:23 23:26 04:52 WBC RBC Hgb Hct MCV MCH MCHC RDW Plt Count Lymph % (Auto) [place] % (Auto) Eos % (Auto) Lymph # [place] # Eos # Seg Neutrophils % Seg Neuts % (Manual) Lymphocytes % (Manual) Monocytes % (Manual) Eosinophils % (Manual) Nucleated RBC % Seg Neutrophils # Seg Neutrophils # Man Lymphocytes # (Manual) Monocytes # (Manual) Eosinophils # (Manual) PT INR APTT Fibrinogen POC ABG pH 7.305 L ABG pH POC ABG pCO2 62.6 H POC ABG pO2 ABG pO2 ABG HCO3 ABG O2 Saturation ABG Base Excess ABG Hemoglobin Oxyhemoglobin Sodium Potassium Chloride Carbon Dioxide BUN Creatinine Glucose POC Glucose 147 H 121 H Uric Acid Calcium Phosphorus Magnesium Iron TIBC AST ALT Total Creatine Kinase CK-MB (CK-2) Troponin T NT-Pro-B Natriuret Pep Total Protein Albumin Triglycerides HDL Cholesterol Folate Urine WBC (Auto) Urine Creatinine Urine Total Protein Vancomycin Trough 05/10/19 05/10/19 05/10/19 05:00 05:00 05:50 WBC RBC Hgb 10.3 L Hct 33.7 L MCV MCH 27 L MCHC 31 L RDW 17.0 H Plt Count Lymph % (Auto) [place] % (Auto) Eos % (Auto) Lymph # [place] # Eos # Seg Neutrophils % Seg Neuts % (Manual) Lymphocytes % (Manual) Monocytes % (Manual) Eosinophils % (Manual) Nucleated RBC % Seg Neutrophils # Seg Neutrophils # Man Lymphocytes # (Manual) Monocytes # (Manual) Eosinophils # (Manual) PT INR APTT Fibrinogen POC ABG pH ABG pH POC ABG pCO2 POC ABG pO2 ABG pO2 ABG HCO3 ABG O2 Saturation ABG Base Excess ABG Hemoglobin Oxyhemoglobin Sodium 147 H Potassium Chloride Carbon Dioxide BUN 70 H Creatinine 2.6 H Glucose 155 H POC Glucose 158 H Uric Acid Calcium 8.2 L Phosphorus Magnesium Iron TIBC AST ALT Total Creatine Kinase CK-MB (CK-2) Troponin T NT-Pro-B Natriuret Pep Total Protein 6.1 L Albumin 2.5 L Triglycerides HDL Cholesterol Folate Urine WBC (Auto) Urine Creatinine Urine Total Protein Vancomycin Trough 05/10/19 05/11/19 05/11/19 13:14 07:26 11:40 WBC RBC Hgb Hct MCV MCH MCHC RDW Plt Count Lymph % (Auto) [place] % (Auto) Eos % (Auto) Lymph # [place] # Eos # Seg Neutrophils % Seg Neuts % (Manual) Lymphocytes % (Manual) Monocytes % (Manual) Eosinophils % (Manual) Nucleated RBC % Seg Neutrophils # Seg Neutrophils # Man Lymphocytes # (Manual) Monocytes # (Manual) Eosinophils # (Manual) PT INR APTT Fibrinogen POC ABG pH ABG pH POC ABG pCO2 48.0 H POC ABG pO2 58 L ABG pO2 ABG HCO3 ABG O2 Saturation ABG Base Excess ABG Hemoglobin Oxyhemoglobin Sodium 147 H Potassium Chloride 107.2 H Carbon Dioxide BUN 67 H Creatinine 2.6 H Glucose 121 H POC Glucose 159 H Uric Acid Calcium Phosphorus Magnesium Iron TIBC AST ALT Total Creatine Kinase CK-MB (CK-2) Troponin T NT-Pro-B Natriuret Pep Total Protein Albumin Triglycerides HDL Cholesterol Folate Urine WBC (Auto) Urine Creatinine Urine Total Protein Vancomycin Trough 05/11/19 05/11/19 05/12/19 18:13 23:46 04:40 WBC RBC Hgb Hct MCV MCH MCHC RDW Plt Count Lymph % (Auto) [place] % (Auto) Eos % (Auto) Lymph # [place] # Eos # Seg Neutrophils % Seg Neuts % (Manual) Lymphocytes % (Manual) Monocytes % (Manual) Eosinophils % (Manual) Nucleated RBC % Seg Neutrophils # Seg Neutrophils # Man Lymphocytes # (Manual) Monocytes # (Manual) Eosinophils # (Manual) PT INR APTT Fibrinogen POC ABG pH ABG pH 7.264 L POC ABG pCO2 POC ABG pO2 ABG pO2 66.8 L ABG HCO3 31.0 H ABG O2 Saturation 92.0 L ABG Base Excess ABG Hemoglobin 10.3 L Oxyhemoglobin 90.1 L Sodium Potassium Chloride Carbon Dioxide BUN Creatinine Glucose POC Glucose 120 H 121 H Uric Acid Calcium Phosphorus Magnesium Iron TIBC AST ALT Total Creatine Kinase CK-MB (CK-2) Troponin T NT-Pro-B Natriuret Pep Total Protein Albumin Triglycerides HDL Cholesterol Folate Urine WBC (Auto) Urine Creatinine Urine Total Protein Vancomycin Trough 05/12/19 05/12/19 05/12/19 04:45 04:45 11:14 WBC RBC Hgb 10.2 L Hct 32.4 L MCV MCH MCHC 31 L RDW 17.2 H Plt Count Lymph % (Auto) [place] % (Auto) Eos % (Auto) Lymph # [place] # Eos # Seg Neutrophils % Seg Neuts % (Manual) Lymphocytes % (Manual) Monocytes % (Manual) Eosinophils % (Manual) Nucleated RBC % Seg Neutrophils # Seg Neutrophils # Man Lymphocytes # (Manual) Monocytes # (Manual) Eosinophils # (Manual) PT INR APTT Fibrinogen POC ABG pH 7.284 L ABG pH POC ABG pCO2 67.8 H POC ABG pO2 ABG pO2 ABG HCO3 ABG O2 Saturation ABG Base Excess ABG Hemoglobin Oxyhemoglobin Sodium Potassium Chloride Carbon Dioxide BUN 63 H Creatinine 2.4 H Glucose 110 H POC Glucose Uric Acid Calcium Phosphorus Magnesium Iron TIBC AST ALT Total Creatine Kinase CK-MB (CK-2) Troponin T NT-Pro-B Natriuret Pep Total Protein Albumin Triglycerides HDL Cholesterol Folate Urine WBC (Auto) Urine Creatinine Urine Total Protein Vancomycin Trough 05/12/19 05/12/19 05/13/19 11:44 23:11 04:30 WBC RBC Hgb Hct MCV MCH MCHC RDW Plt Count Lymph % (Auto) [place] % (Auto) Eos % (Auto) Lymph # [place] # Eos # Seg Neutrophils % Seg Neuts % (Manual) Lymphocytes % (Manual) Monocytes % (Manual) Eosinophils % (Manual) Nucleated RBC % Seg Neutrophils # Seg Neutrophils # Man Lymphocytes # (Manual) Monocytes # (Manual) Eosinophils # (Manual) PT INR APTT Fibrinogen POC ABG pH ABG pH 7.288 L POC ABG pCO2 POC ABG pO2 ABG pO2 109.7 H ABG HCO3 30.9 H ABG O2 Saturation ABG Base Excess 3.2 H ABG Hemoglobin 9.6 L Oxyhemoglobin Sodium Potassium Chloride Carbon Dioxide BUN Creatinine Glucose POC Glucose 126 H 147 H Uric Acid Calcium Phosphorus Magnesium Iron TIBC AST ALT Total Creatine Kinase CK-MB (CK-2) Troponin T NT-Pro-B Natriuret Pep Total Protein Albumin Triglycerides HDL Cholesterol Folate Urine WBC (Auto) Urine Creatinine Urine Total Protein Vancomycin Trough 05/13/19 05/13/19 05/14/19 06:27 11:58 04:00 WBC RBC 3.16 L Hgb 9.3 L Hct 27.9 L MCV MCH MCHC RDW 17.1 H Plt Count Lymph % (Auto) [place] % (Auto) Eos % (Auto) Lymph # [place] # Eos # Seg Neutrophils % Seg Neuts % (Manual) Lymphocytes % (Manual) Monocytes % (Manual) Eosinophils % (Manual) Nucleated RBC % Seg Neutrophils # Seg Neutrophils # Man Lymphocytes # (Manual) Monocytes # (Manual) Eosinophils # (Manual) PT INR APTT Fibrinogen POC ABG pH ABG pH POC ABG pCO2 POC ABG pO2 ABG pO2 ABG HCO3 ABG O2 Saturation ABG Base Excess ABG Hemoglobin Oxyhemoglobin Sodium Potassium Chloride Carbon Dioxide BUN Creatinine Glucose POC Glucose 113 H 130 H Uric Acid Calcium Phosphorus Magnesium Iron TIBC AST ALT Total Creatine Kinase CK-MB (CK-2) Troponin T NT-Pro-B Natriuret Pep Total Protein Albumin Triglycerides HDL Cholesterol Folate Urine WBC (Auto) Urine Creatinine Urine Total Protein Vancomycin Trough 05/14/19 05/14/19 05/14/19 04:00 04:34 05:32 WBC RBC Hgb Hct MCV MCH MCHC RDW Plt Count Lymph % (Auto) [place] % (Auto) Eos % (Auto) Lymph # [place] # Eos # Seg Neutrophils % Seg Neuts % (Manual) Lymphocytes % (Manual) Monocytes % (Manual) Eosinophils % (Manual) Nucleated RBC % Seg Neutrophils # Seg Neutrophils # Man Lymphocytes # (Manual) Monocytes # (Manual) Eosinophils # (Manual) PT INR APTT Fibrinogen POC ABG pH 7.328 L ABG pH POC ABG pCO2 61.7 H POC ABG pO2 ABG pO2 ABG HCO3 ABG O2 Saturation ABG Base Excess ABG Hemoglobin Oxyhemoglobin Sodium 135 L D Potassium Chloride Carbon Dioxide BUN 57 H Creatinine 2.2 H Glucose 115 H POC Glucose 115 H Uric Acid Calcium 8.1 L Phosphorus Magnesium Iron TIBC AST ALT Total Creatine Kinase CK-MB (CK-2) Troponin T NT-Pro-B Natriuret Pep Total Protein Albumin Triglycerides HDL Cholesterol Folate Urine WBC (Auto) Urine Creatinine Urine Total Protein Vancomycin Trough 05/14/19 05/15/19 05/15/19 12:11 05:10 05:24 WBC RBC Hgb Hct MCV MCH MCHC RDW Plt Count Lymph % (Auto) [place] % (Auto) Eos % (Auto) Lymph # [place] # Eos # Seg Neutrophils % Seg Neuts % (Manual) Lymphocytes % (Manual) Monocytes % (Manual) Eosinophils % (Manual) Nucleated RBC % Seg Neutrophils # Seg Neutrophils # Man Lymphocytes # (Manual) Monocytes # (Manual) Eosinophils # (Manual) PT INR APTT Fibrinogen POC ABG pH ABG pH 7.342 L POC ABG pCO2 POC ABG pO2 ABG pO2 79.1 L ABG HCO3 28.2 H ABG O2 Saturation ABG Base Excess ABG Hemoglobin 7.0 L Oxyhemoglobin 94.4 L Sodium Potassium Chloride Carbon Dioxide BUN Creatinine Glucose POC Glucose 110 H 116 H Uric Acid Calcium Phosphorus Magnesium Iron TIBC AST ALT Total Creatine Kinase CK-MB (CK-2) Troponin T NT-Pro-B Natriuret Pep Total Protein Albumin Triglycerides HDL Cholesterol Folate Urine WBC (Auto) Urine Creatinine Urine Total Protein Vancomycin Trough 05/15/19 05/15/19 05/16/19 09:00 18:12 04:50 WBC RBC Hgb Hct MCV MCH MCHC RDW Plt Count Lymph % (Auto) [place] % (Auto) Eos % (Auto) Lymph # [place] # Eos # Seg Neutrophils % Seg Neuts % (Manual) Lymphocytes % (Manual) Monocytes % (Manual) Eosinophils % (Manual) Nucleated RBC % Seg Neutrophils # Seg Neutrophils # Man Lymphocytes # (Manual) Monocytes # (Manual) Eosinophils # (Manual) PT INR APTT Fibrinogen POC ABG pH ABG pH 7.250 L POC ABG pCO2 POC ABG pO2 ABG pO2 76.4 L ABG HCO3 ABG O2 Saturation 94.6 L ABG Base Excess -3.1 L ABG Hemoglobin 9.7 L Oxyhemoglobin 92.4 L Sodium Potassium Chloride Carbon Dioxide BUN Creatinine Glucose POC Glucose 110 H Uric Acid Calcium Phosphorus Magnesium Iron TIBC AST ALT Total Creatine Kinase CK-MB (CK-2) Troponin T NT-Pro-B Natriuret Pep Total Protein Albumin Triglycerides HDL Cholesterol Folate Urine WBC (Auto) Urine Creatinine Urine Total Protein Vancomycin Trough 20.5 H 05/16/19 05/16/19 05/17/19 05:50 05:50 04:20 WBC RBC 3.36 L 3.44 L Hgb 9.4 L 9.3 L Hct 29.1 L 29.7 L MCV MCH 27 L MCHC 31 L RDW 17.6 H 17.6 H Plt Count Lymph % (Auto) [place] % (Auto) Eos % (Auto) Lymph # [place] # Eos # Seg Neutrophils % Seg Neuts % (Manual) 77.0 H Lymphocytes % (Manual) 5.0 L Monocytes % (Manual) Eosinophils % (Manual) 10.0 H Nucleated RBC % Seg Neutrophils # Seg Neutrophils # Man Lymphocytes # (Manual) 0.5 L Monocytes # (Manual) Eosinophils # (Manual) 0.9 H PT INR APTT Fibrinogen POC ABG pH ABG pH POC ABG pCO2 POC ABG pO2 ABG pO2 ABG HCO3 ABG O2 Saturation ABG Base Excess ABG Hemoglobin Oxyhemoglobin Sodium Potassium Chloride Carbon Dioxide BUN 83 H Creatinine 4.4 H D Glucose 118 H POC Glucose Uric Acid Calcium Phosphorus Magnesium Iron TIBC AST ALT Total Creatine Kinase CK-MB (CK-2) Troponin T NT-Pro-B Natriuret Pep Total Protein Albumin Triglycerides HDL Cholesterol Folate Urine WBC (Auto) Urine Creatinine Urine Total Protein Vancomycin Trough 05/17/19 05/17/19 05/18/19 04:30 Unknown 01:50 WBC RBC 3.49 L Hgb 9.4 L Hct 30.0 L MCV MCH 27 L MCHC 31 L RDW 17.8 H Plt Count Lymph % (Auto) 7.9 L [place] % (Auto) 15.4 H Eos % (Auto) 6.3 H Lymph # 0.7 L [place] # 1.4 H Eos # 0.6 H Seg Neutrophils % 70.2 H Seg Neuts % (Manual) Lymphocytes % (Manual) Monocytes % (Manual) Eosinophils % (Manual) Nucleated RBC % Seg Neutrophils # Seg Neutrophils # Man Lymphocytes # (Manual) Monocytes # (Manual) Eosinophils # (Manual) PT INR APTT Fibrinogen POC ABG pH ABG pH 7.272 L POC ABG pCO2 POC ABG pO2 ABG pO2 75.7 L ABG HCO3 ABG O2 Saturation 93.8 L ABG Base Excess -3.0 L ABG Hemoglobin 7.8 L Oxyhemoglobin 91.6 L Sodium Potassium 5.2 H Chloride Carbon Dioxide BUN 96 H Creatinine 5.7 H Glucose 112 H POC Glucose Uric Acid Calcium Phosphorus Magnesium Iron TIBC AST ALT Total Creatine Kinase CK-MB (CK-2) Troponin T NT-Pro-B Natriuret Pep Total Protein Albumin Triglycerides 173 H HDL Cholesterol Folate Urine WBC (Auto) Urine Creatinine Urine Total Protein Vancomycin Trough 05/18/19 05/18/19 05/18/19 01:50 04:41 05:24 WBC RBC Hgb Hct MCV MCH MCHC RDW Plt Count Lymph % (Auto) [place] % (Auto) Eos % (Auto) Lymph # [place] # Eos # Seg Neutrophils % Seg Neuts % (Manual) Lymphocytes % (Manual) Monocytes % (Manual) Eosinophils % (Manual) Nucleated RBC % Seg Neutrophils # Seg Neutrophils # Man Lymphocytes # (Manual) Monocytes # (Manual) Eosinophils # (Manual) PT INR APTT Fibrinogen POC ABG pH 7.260 L ABG pH POC ABG pCO2 54.9 H POC ABG pO2 ABG pO2 ABG HCO3 ABG O2 Saturation ABG Base Excess ABG Hemoglobin Oxyhemoglobin Sodium Potassium 5.6 H Chloride Carbon Dioxide BUN 104 H Creatinine 6.6 H Glucose 107 H POC Glucose 106 H Uric Acid Calcium Phosphorus Magnesium Iron TIBC AST ALT Total Creatine Kinase CK-MB (CK-2) Troponin T NT-Pro-B Natriuret Pep Total Protein Albumin Triglycerides HDL Cholesterol Folate Urine WBC (Auto) Urine Creatinine Urine Total Protein Vancomycin Trough 05/18/19 05/18/19 05/19/19 11:34 23:26 04:06 WBC RBC 3.22 L Hgb 8.8 L Hct 27.3 L MCV MCH 27 L MCHC RDW 17.5 H Plt Count Lymph % (Auto) [place] % (Auto) Eos % (Auto) Lymph # [place] # Eos # Seg Neutrophils % Seg Neuts % (Manual) 74.0 H Lymphocytes % (Manual) 4.0 L Monocytes % (Manual) 11.0 H Eosinophils % (Manual) 7.0 H Nucleated RBC % 1.0 H Seg Neutrophils # Seg Neutrophils # Man Lymphocytes # (Manual) 0.3 L Monocytes # (Manual) 0.9 H Eosinophils # (Manual) 0.6 H PT INR APTT Fibrinogen POC ABG pH ABG pH POC ABG pCO2 POC ABG pO2 ABG pO2 ABG HCO3 ABG O2 Saturation ABG Base Excess ABG Hemoglobin Oxyhemoglobin Sodium Potassium Chloride Carbon Dioxide BUN Creatinine Glucose POC Glucose 152 H 112 H Uric Acid Calcium Phosphorus Magnesium Iron TIBC AST ALT Total Creatine Kinase CK-MB (CK-2) Troponin T NT-Pro-B Natriuret Pep Total Protein Albumin Triglycerides HDL Cholesterol Folate Urine WBC (Auto) Urine Creatinine Urine Total Protein Vancomycin Trough 05/19/19 05/19/19 05/20/19 04:06 06:00 04:00 WBC RBC 3.40 L Hgb 9.2 L Hct 28.6 L MCV MCH 27 L MCHC RDW 17.6 H Plt Count Lymph % (Auto) [place] % (Auto) Eos % (Auto) Lymph # [place] # Eos # Seg Neutrophils % Seg Neuts % (Manual) Lymphocytes % (Manual) 11.0 L Monocytes % (Manual) Eosinophils % (Manual) 14.0 H Nucleated RBC % Seg Neutrophils # Seg Neutrophils # Man Lymphocytes # (Manual) 1.1 L Monocytes # (Manual) Eosinophils # (Manual) 1.4 H PT INR APTT Fibrinogen POC ABG pH ABG pH 7.315 L POC ABG pCO2 POC ABG pO2 ABG pO2 ABG HCO3 ABG O2 Saturation ABG Base Excess ABG Hemoglobin 6.7 L Oxyhemoglobin 94.1 L Sodium Potassium 5.2 H Chloride Carbon Dioxide 21 L BUN 110 H Creatinine 7.2 H Glucose POC Glucose Uric Acid Calcium 8.3 L Phosphorus Magnesium Iron TIBC AST ALT Total Creatine Kinase CK-MB (CK-2) Troponin T NT-Pro-B Natriuret Pep Total Protein Albumin Triglycerides HDL Cholesterol Folate Urine WBC (Auto) Urine Creatinine Urine Total Protein Vancomycin Trough 05/20/19 05/20/19 05/20/19 04:00 05:48 12:00 WBC RBC Hgb Hct MCV MCH MCHC RDW Plt Count Lymph % (Auto) [place] % (Auto) Eos % (Auto) Lymph # [place] # Eos # Seg Neutrophils % Seg Neuts % (Manual) Lymphocytes % (Manual) Monocytes % (Manual) Eosinophils % (Manual) Nucleated RBC % Seg Neutrophils # Seg Neutrophils # Man Lymphocytes # (Manual) Monocytes # (Manual) Eosinophils # (Manual) PT INR APTT Fibrinogen POC ABG pH ABG pH 7.281 L POC ABG pCO2 POC ABG pO2 ABG pO2 78.7 L ABG HCO3 ABG O2 Saturation 94.5 L ABG Base Excess -3.0 L ABG Hemoglobin 9.9 L Oxyhemoglobin 92.5 L Sodium 136 L Potassium 5.7 H Chloride 96.3 L Carbon Dioxide BUN 125 H Creatinine 8.3 H Glucose 106 H POC Glucose Uric Acid Calcium Phosphorus Magnesium Iron TIBC AST ALT Total Creatine Kinase CK-MB (CK-2) Troponin T NT-Pro-B Natriuret Pep Total Protein Albumin Triglycerides HDL Cholesterol Folate Urine WBC (Auto) 26.0 H Urine Creatinine Urine Total Protein Vancomycin Trough 05/21/19 05/21/19 05/21/19 04:33 05:20 Unknown WBC RBC 3.38 L Hgb 9.1 L Hct 28.5 L MCV MCH 27 L MCHC RDW 17.4 H Plt Count Lymph % (Auto) [place] % (Auto) Eos % (Auto) Lymph # [place] # Eos # Seg Neutrophils % Seg Neuts % (Manual) 71.0 H Lymphocytes % (Manual) 1.0 L Monocytes % (Manual) 11.0 H Eosinophils % (Manual) 6.0 H Nucleated RBC % Seg Neutrophils # Seg Neutrophils # Man Lymphocytes # (Manual) 0.1 L Monocytes # (Manual) 1.0 H Eosinophils # (Manual) 0.6 H PT INR APTT Fibrinogen POC ABG pH 7.315 L ABG pH POC ABG pCO2 57.8 H POC ABG pO2 68 L ABG pO2 ABG HCO3 ABG O2 Saturation ABG Base Excess ABG Hemoglobin Oxyhemoglobin Sodium Potassium Chloride 96.3 L Carbon Dioxide BUN 102 H Creatinine 7.0 H Glucose 103 H POC Glucose Uric Acid Calcium Phosphorus Magnesium Iron TIBC AST ALT Total Creatine Kinase CK-MB (CK-2) Troponin T NT-Pro-B Natriuret Pep Total Protein Albumin Triglycerides HDL Cholesterol Folate Urine WBC (Auto) Urine Creatinine Urine Total Protein Vancomycin Trough 05/22/19 05/22/19 05/22/19 03:54 06:25 06:25 WBC RBC 3.22 L Hgb 8.6 L Hct 27.0 L MCV MCH 27 L MCHC RDW 17.5 H Plt Count Lymph % (Auto) [place] % (Auto) 16.2 H Eos % (Auto) 10.8 H Lymph # [place] # 1.3 H Eos # 0.9 H Seg Neutrophils % Seg Neuts % (Manual) Lymphocytes % (Manual) 10.0 L Monocytes % (Manual) 13.0 H Eosinophils % (Manual) 8.0 H Nucleated RBC % Seg Neutrophils # Seg Neutrophils # Man Lymphocytes # (Manual) 0.9 L Monocytes # (Manual) 1.1 H Eosinophils # (Manual) 0.7 H PT INR APTT Fibrinogen POC ABG pH 7.313 L ABG pH POC ABG pCO2 55.0 H POC ABG pO2 ABG pO2 ABG HCO3 ABG O2 Saturation ABG Base Excess ABG Hemoglobin Oxyhemoglobin Sodium 135 L Potassium Chloride 94.3 L Carbon Dioxide BUN 117 H Creatinine 7.8 H Glucose POC Glucose Uric Acid Calcium 8.2 L Phosphorus Magnesium Iron TIBC AST ALT Total Creatine Kinase CK-MB (CK-2) Troponin T NT-Pro-B Natriuret Pep Total Protein Albumin Triglycerides HDL Cholesterol Folate Urine WBC (Auto) Urine Creatinine Urine Total Protein Vancomycin Trough 05/23/19 05/24/19 05/24/19 05:21 05:00 05:00 WBC RBC 3.18 L Hgb 8.5 L Hct 26.7 L MCV MCH 27 L MCHC RDW 17.9 H Plt Count Lymph % (Auto) [place] % (Auto) Eos % (Auto) Lymph # [place] # Eos # Seg Neutrophils % Seg Neuts % (Manual) Lymphocytes % (Manual) Monocytes % (Manual) Eosinophils % (Manual) Nucleated RBC % Seg Neutrophils # Seg Neutrophils # Man Lymphocytes # (Manual) Monocytes # (Manual) Eosinophils # (Manual) PT INR APTT Fibrinogen POC ABG pH ABG pH POC ABG pCO2 49.7 H POC ABG pO2 73 L ABG pO2 ABG HCO3 ABG O2 Saturation ABG Base Excess ABG Hemoglobin Oxyhemoglobin Sodium Potassium Chloride 95.7 L Carbon Dioxide BUN 97 H Creatinine 6.5 H Glucose POC Glucose Uric Acid Calcium 8.0 L Phosphorus Magnesium Iron TIBC AST ALT Total Creatine Kinase CK-MB (CK-2) Troponin T NT-Pro-B Natriuret Pep Total Protein Albumin Triglycerides HDL Cholesterol Folate Urine WBC (Auto) Urine Creatinine Urine Total Protein Vancomycin Trough 05/24/19 05/25/19 05/25/19 06:17 04:22 15:45 WBC RBC 2.98 L Hgb 8.1 L Hct 24.9 L MCV MCH 27 L MCHC RDW 17.8 H Plt Count Lymph % (Auto) [place] % (Auto) Eos % (Auto) Lymph # [place] # Eos # Seg Neutrophils % Seg Neuts % (Manual) Lymphocytes % (Manual) Monocytes % (Manual) Eosinophils % (Manual) Nucleated RBC % Seg Neutrophils # Seg Neutrophils # Man Lymphocytes # (Manual) Monocytes # (Manual) Eosinophils # (Manual) PT INR APTT Fibrinogen POC ABG pH 7.330 L 7.313 L ABG pH POC ABG pCO2 52.5 H 51.1 H POC ABG pO2 77 L ABG pO2 ABG HCO3 ABG O2 Saturation ABG Base Excess ABG Hemoglobin Oxyhemoglobin Sodium Potassium Chloride Carbon Dioxide BUN Creatinine Glucose POC Glucose Uric Acid Calcium Phosphorus Magnesium Iron TIBC AST ALT Total Creatine Kinase CK-MB (CK-2) Troponin T NT-Pro-B Natriuret Pep Total Protein Albumin Triglycerides HDL Cholesterol Folate Urine WBC (Auto) Urine Creatinine Urine Total Protein Vancomycin Trough 05/25/19 05/26/19 05/26/19 15:45 04:13 05:00 WBC RBC 3.10 L Hgb 8.4 L Hct 26.0 L MCV MCH 27 L MCHC RDW 17.4 H Plt Count Lymph % (Auto) [place] % (Auto) Eos % (Auto) Lymph # [place] # Eos # Seg Neutrophils % Seg Neuts % (Manual) Lymphocytes % (Manual) Monocytes % (Manual) Eosinophils % (Manual) Nucleated RBC % Seg Neutrophils # Seg Neutrophils # Man Lymphocytes # (Manual) Monocytes # (Manual) Eosinophils # (Manual) PT INR APTT Fibrinogen POC ABG pH 7.295 L ABG pH POC ABG pCO2 56.5 H POC ABG pO2 63 L ABG pO2 ABG HCO3 ABG O2 Saturation ABG Base Excess ABG Hemoglobin Oxyhemoglobin Sodium 136 L Potassium Chloride 96.8 L Carbon Dioxide BUN 83 H Creatinine 5.9 H Glucose POC Glucose Uric Acid Calcium 7.6 L Phosphorus Magnesium Iron TIBC AST ALT Total Creatine Kinase CK-MB (CK-2) Troponin T NT-Pro-B Natriuret Pep Total Protein Albumin Triglycerides HDL Cholesterol Folate Urine WBC (Auto) Urine Creatinine Urine Total Protein Vancomycin Trough 05/26/19 05/27/19 05/28/19 05:00 04:48 04:47 WBC RBC Hgb Hct MCV MCH MCHC RDW Plt Count Lymph % (Auto) [place] % (Auto) Eos % (Auto) Lymph # [place] # Eos # Seg Neutrophils % Seg Neuts % (Manual) Lymphocytes % (Manual) Monocytes % (Manual) Eosinophils % (Manual) Nucleated RBC % Seg Neutrophils # Seg Neutrophils # Man Lymphocytes # (Manual) Monocytes # (Manual) Eosinophils # (Manual) PT INR APTT Fibrinogen POC ABG pH 7.323 L ABG pH 7.284 L POC ABG pCO2 56.2 H POC ABG pO2 ABG pO2 71.6 L ABG HCO3 ABG O2 Saturation 92.0 L ABG Base Excess ABG Hemoglobin 7.7 L Oxyhemoglobin 89.9 L Sodium 136 L Potassium Chloride 95.3 L Carbon Dioxide BUN 96 H Creatinine 6.5 H Glucose 108 H POC Glucose Uric Acid Calcium 7.6 L Phosphorus Magnesium Iron TIBC AST ALT Total Creatine Kinase CK-MB (CK-2) Troponin T NT-Pro-B Natriuret Pep Total Protein Albumin Triglycerides HDL Cholesterol Folate Urine WBC (Auto) Urine Creatinine Urine Total Protein Vancomycin Trough 05/28/19 05/29/19 05/29/19 12:30 12:47 23:44 WBC RBC Hgb Hct MCV MCH MCHC RDW Plt Count Lymph % (Auto) [place] % (Auto) Eos % (Auto) Lymph # [place] # Eos # Seg Neutrophils % Seg Neuts % (Manual) Lymphocytes % (Manual) Monocytes % (Manual) Eosinophils % (Manual) Nucleated RBC % Seg Neutrophils # Seg Neutrophils # Man Lymphocytes # (Manual) Monocytes # (Manual) Eosinophils # (Manual) PT INR APTT Fibrinogen POC ABG pH ABG pH POC ABG pCO2 POC ABG pO2 ABG pO2 ABG HCO3 ABG O2 Saturation ABG Base Excess ABG Hemoglobin Oxyhemoglobin Sodium 135 L Potassium Chloride 95.3 L Carbon Dioxide BUN 82 H Creatinine 6.0 H Glucose POC Glucose 136 H 159 H Uric Acid Calcium 7.5 L Phosphorus Magnesium Iron TIBC AST ALT Total Creatine Kinase CK-MB (CK-2) Troponin T NT-Pro-B Natriuret Pep Total Protein Albumin Triglycerides HDL Cholesterol Folate Urine WBC (Auto) Urine Creatinine Urine Total Protein Vancomycin Trough 05/30/19 05/30/19 05/30/19 04:30 05:38 12:00 WBC RBC 3.01 L Hgb 8.2 L Hct 25.3 L MCV MCH 27 L MCHC RDW 17.5 H Plt Count Lymph % (Auto) [place] % (Auto) Eos % (Auto) Lymph # [place] # Eos # Seg Neutrophils % Seg Neuts % (Manual) 80.0 H Lymphocytes % (Manual) 10.0 L Monocytes % (Manual) Eosinophils % (Manual) Nucleated RBC % Seg Neutrophils # Seg Neutrophils # Man 8.0 H Lymphocytes # (Manual) 1.0 L Monocytes # (Manual) Eosinophils # (Manual) PT INR APTT Fibrinogen POC ABG pH ABG pH POC ABG pCO2 POC ABG pO2 73 L ABG pO2 ABG HCO3 ABG O2 Saturation ABG Base Excess ABG Hemoglobin Oxyhemoglobin Sodium Potassium Chloride Carbon Dioxide BUN Creatinine Glucose POC Glucose 166 H Uric Acid Calcium Phosphorus Magnesium Iron TIBC AST ALT Total Creatine Kinase CK-MB (CK-2) Troponin T NT-Pro-B Natriuret Pep Total Protein Albumin Triglycerides HDL Cholesterol Folate Urine WBC (Auto) Urine Creatinine Urine Total Protein Vancomycin Trough 05/30/19 05/31/19 05/31/19 23:45 04:07 13:04 WBC 14.3 H RBC 2.88 L Hgb 7.7 L Hct 23.9 L MCV 83 L MCH 27 L MCHC RDW 17.8 H Plt Count Lymph % (Auto) [place] % (Auto) Eos % (Auto) Lymph # [place] # Eos # Seg Neutrophils % Seg Neuts % (Manual) 83.0 H Lymphocytes % (Manual) 11.0 L Monocytes % (Manual) Eosinophils % (Manual) Nucleated RBC % Seg Neutrophils # Seg Neutrophils # Man 11.9 H Lymphocytes # (Manual) Monocytes # (Manual) 0.9 H Eosinophils # (Manual) PT INR APTT Fibrinogen POC ABG pH ABG pH POC ABG pCO2 47.4 H POC ABG pO2 ABG pO2 ABG HCO3 ABG O2 Saturation ABG Base Excess ABG Hemoglobin Oxyhemoglobin Sodium Potassium Chloride Carbon Dioxide BUN Creatinine Glucose POC Glucose 209 H Uric Acid Calcium Phosphorus Magnesium Iron TIBC AST ALT Total Creatine Kinase CK-MB (CK-2) Troponin T NT-Pro-B Natriuret Pep Total Protein Albumin Triglycerides HDL Cholesterol Folate Urine WBC (Auto) Urine Creatinine Urine Total Protein Vancomycin Trough 05/31/19 05/31/19 06/01/19 13:04 16:42 00:15 WBC RBC Hgb Hct MCV MCH MCHC RDW Plt Count Lymph % (Auto) [place] % (Auto) Eos % (Auto) Lymph # [place] # Eos # Seg Neutrophils % Seg Neuts % (Manual) Lymphocytes % (Manual) Monocytes % (Manual) Eosinophils % (Manual) Nucleated RBC % Seg Neutrophils # Seg Neutrophils # Man Lymphocytes # (Manual) Monocytes # (Manual) Eosinophils # (Manual) PT INR APTT Fibrinogen POC ABG pH ABG pH POC ABG pCO2 POC ABG pO2 ABG pO2 ABG HCO3 ABG O2 Saturation ABG Base Excess ABG Hemoglobin Oxyhemoglobin Sodium 129 L Potassium Chloride 88.6 L Carbon Dioxide 19 L BUN 117 H Creatinine 6.7 H Glucose 205 H POC Glucose 228 H 223 H Uric Acid Calcium 7.4 L Phosphorus 7.40 H Magnesium Iron TIBC AST 58 H ALT 149 H Total Creatine Kinase CK-MB (CK-2) Troponin T NT-Pro-B Natriuret Pep Total Protein 6.0 L Albumin 2.5 L Triglycerides HDL Cholesterol Folate Urine WBC (Auto) Urine Creatinine Urine Total Protein Vancomycin Trough 06/01/19 06/01/19 06/01/19 04:33 05:27 12:31 WBC RBC Hgb Hct MCV MCH MCHC RDW Plt Count Lymph % (Auto) [place] % (Auto) Eos % (Auto) Lymph # [place] # Eos # Seg Neutrophils % Seg Neuts % (Manual) Lymphocytes % (Manual) Monocytes % (Manual) Eosinophils % (Manual) Nucleated RBC % Seg Neutrophils # Seg Neutrophils # Man Lymphocytes # (Manual) Monocytes # (Manual) Eosinophils # (Manual) PT INR APTT Fibrinogen POC ABG pH ABG pH POC ABG pCO2 POC ABG pO2 ABG pO2 56.9 L ABG HCO3 ABG O2 Saturation 85.9 L ABG Base Excess ABG Hemoglobin 8.1 L Oxyhemoglobin 83.6 L Sodium Potassium Chloride Carbon Dioxide BUN Creatinine Glucose POC Glucose 183 H 217 H Uric Acid Calcium Phosphorus Magnesium Iron TIBC AST ALT Total Creatine Kinase CK-MB (CK-2) Troponin T NT-Pro-B Natriuret Pep Total Protein Albumin Triglycerides HDL Cholesterol Folate Urine WBC (Auto) Urine Creatinine Urine Total Protein Vancomycin Trough 06/01/19 06/02/19 06/02/19 18:20 00:00 05:33 WBC RBC Hgb Hct MCV MCH MCHC RDW Plt Count Lymph % (Auto) [place] % (Auto) Eos % (Auto) Lymph # [place] # Eos # Seg Neutrophils % Seg Neuts % (Manual) Lymphocytes % (Manual) Monocytes % (Manual) Eosinophils % (Manual) Nucleated RBC % Seg Neutrophils # Seg Neutrophils # Man Lymphocytes # (Manual) Monocytes # (Manual) Eosinophils # (Manual) PT INR APTT Fibrinogen POC ABG pH ABG pH POC ABG pCO2 POC ABG pO2 ABG pO2 ABG HCO3 ABG O2 Saturation ABG Base Excess ABG Hemoglobin Oxyhemoglobin Sodium Potassium Chloride Carbon Dioxide BUN Creatinine Glucose POC Glucose 265 H 279 H 259 H Uric Acid Calcium Phosphorus Magnesium Iron TIBC AST ALT Total Creatine Kinase CK-MB (CK-2) Troponin T NT-Pro-B Natriuret Pep Total Protein Albumin Triglycerides HDL Cholesterol Folate Urine WBC (Auto) Urine Creatinine Urine Total Protein Vancomycin Trough 06/02/19 06/02/19 06/02/19 11:06 11:06 11:42 WBC 13.1 H RBC 2.92 L Hgb 7.9 L Hct 24.4 L MCV MCH 27 L MCHC RDW 17.4 H Plt Count Lymph % (Auto) [place] % (Auto) Eos % (Auto) Lymph # [place] # Eos # Seg Neutrophils % Seg Neuts % (Manual) 78.0 H Lymphocytes % (Manual) 12.0 L Monocytes % (Manual) 10.0 H Eosinophils % (Manual) Nucleated RBC % Seg Neutrophils # Seg Neutrophils # Man 10.2 H Lymphocytes # (Manual) Monocytes # (Manual) 1.3 H Eosinophils # (Manual) PT INR APTT Fibrinogen POC ABG pH ABG pH POC ABG pCO2 POC ABG pO2 ABG pO2 ABG HCO3 ABG O2 Saturation ABG Base Excess ABG Hemoglobin Oxyhemoglobin Sodium 135 L Potassium Chloride 94.7 L Carbon Dioxide 21 L BUN 107 H Creatinine 4.5 H Glucose 286 H POC Glucose 263 H Uric Acid Calcium 7.9 L Phosphorus 6.30 H Magnesium Iron TIBC AST ALT 104 H Total Creatine Kinase CK-MB (CK-2) Troponin T NT-Pro-B Natriuret Pep Total Protein 6.0 L Albumin 2.7 L Triglycerides HDL Cholesterol Folate Urine WBC (Auto) Urine Creatinine Urine Total Protein Vancomycin Trough 06/02/19 06/02/19 06/03/19 18:17 23:55 05:30 WBC RBC Hgb Hct MCV MCH MCHC RDW Plt Count Lymph % (Auto) [place] % (Auto) Eos % (Auto) Lymph # [place] # Eos # Seg Neutrophils % Seg Neuts % (Manual) Lymphocytes % (Manual) Monocytes % (Manual) Eosinophils % (Manual) Nucleated RBC % Seg Neutrophils # Seg Neutrophils # Man Lymphocytes # (Manual) Monocytes # (Manual) Eosinophils # (Manual) PT INR APTT Fibrinogen POC ABG pH ABG pH POC ABG pCO2 POC ABG pO2 ABG pO2 ABG HCO3 ABG O2 Saturation ABG Base Excess ABG Hemoglobin Oxyhemoglobin Sodium Potassium Chloride 95.1 L Carbon Dioxide 21 L BUN 119 H Creatinine 4.1 H Glucose 330 H POC Glucose 276 H 244 H Uric Acid Calcium 8.1 L Phosphorus Magnesium Iron TIBC AST ALT 98 H Total Creatine Kinase CK-MB (CK-2) Troponin T NT-Pro-B Natriuret Pep Total Protein 5.8 L Albumin 2.8 L Triglycerides HDL Cholesterol Folate Urine WBC (Auto) Urine Creatinine Urine Total Protein Vancomycin Trough 06/03/19 06/03/19 06/03/19 05:30 06:04 09:42 WBC 12.8 H RBC 3.01 L Hgb 8.2 L Hct 25.4 L MCV MCH 27 L MCHC RDW 17.5 H Plt Count Lymph % (Auto) [place] % (Auto) Eos % (Auto) Lymph # [place] # Eos # Seg Neutrophils % Seg Neuts % (Manual) 78.0 H Lymphocytes % (Manual) 10.0 L Monocytes % (Manual) 12.0 H Eosinophils % (Manual) Nucleated RBC % Seg Neutrophils # Seg Neutrophils # Man 10.0 H Lymphocytes # (Manual) Monocytes # (Manual) 1.5 H Eosinophils # (Manual) PT INR APTT Fibrinogen POC ABG pH ABG pH POC ABG pCO2 POC ABG pO2 ABG pO2 ABG HCO3 ABG O2 Saturation ABG Base Excess ABG Hemoglobin Oxyhemoglobin Sodium Potassium Chloride Carbon Dioxide BUN 106 H Creatinine Glucose POC Glucose 254 H Uric Acid Calcium Phosphorus Magnesium Iron TIBC AST ALT Total Creatine Kinase CK-MB (CK-2) Troponin T NT-Pro-B Natriuret Pep Total Protein Albumin Triglycerides HDL Cholesterol Folate Urine WBC (Auto) Urine Creatinine Urine Total Protein Vancomycin Trough 06/03/19 06/03/19 06/03/19 12:52 17:25 23:37 WBC RBC Hgb Hct MCV MCH MCHC RDW Plt Count Lymph % (Auto) [place] % (Auto) Eos % (Auto) Lymph # [place] # Eos # Seg Neutrophils % Seg Neuts % (Manual) Lymphocytes % (Manual) Monocytes % (Manual) Eosinophils % (Manual) Nucleated RBC % Seg Neutrophils # Seg Neutrophils # Man Lymphocytes # (Manual) Monocytes # (Manual) Eosinophils # (Manual) PT INR APTT Fibrinogen POC ABG pH ABG pH POC ABG pCO2 POC ABG pO2 ABG pO2 ABG HCO3 ABG O2 Saturation ABG Base Excess ABG Hemoglobin Oxyhemoglobin Sodium Potassium Chloride Carbon Dioxide BUN Creatinine Glucose POC Glucose 274 H 285 H 310 H Uric Acid Calcium Phosphorus Magnesium Iron TIBC AST ALT Total Creatine Kinase CK-MB (CK-2) Troponin T NT-Pro-B Natriuret Pep Total Protein Albumin Triglycerides HDL Cholesterol Folate Urine WBC (Auto) Urine Creatinine Urine Total Protein Vancomycin Trough 06/04/19 06/04/19 06/04/19 04:57 05:03 11:50 WBC RBC Hgb Hct MCV MCH MCHC RDW Plt Count Lymph % (Auto) [place] % (Auto) Eos % (Auto) Lymph # [place] # Eos # Seg Neutrophils % Seg Neuts % (Manual) Lymphocytes % (Manual) Monocytes % (Manual) Eosinophils % (Manual) Nucleated RBC % Seg Neutrophils # Seg Neutrophils # Man Lymphocytes # (Manual) Monocytes # (Manual) Eosinophils # (Manual) PT INR APTT Fibrinogen POC ABG pH 7.488 H ABG pH POC ABG pCO2 POC ABG pO2 ABG pO2 ABG HCO3 ABG O2 Saturation ABG Base Excess ABG Hemoglobin Oxyhemoglobin Sodium Potassium Chloride Carbon Dioxide BUN Creatinine Glucose POC Glucose 275 H 279 H Uric Acid Calcium Phosphorus Magnesium Iron TIBC AST ALT Total Creatine Kinase CK-MB (CK-2) Troponin T NT-Pro-B Natriuret Pep Total Protein Albumin Triglycerides HDL Cholesterol Folate Urine WBC (Auto) Urine Creatinine Urine Total Protein Vancomycin Trough 06/04/19 06/04/19 06/04/19 18:32 22:03 23:55 WBC RBC Hgb Hct MCV MCH MCHC RDW Plt Count Lymph % (Auto) [place] % (Auto) Eos % (Auto) Lymph # [place] # Eos # Seg Neutrophils % Seg Neuts % (Manual) Lymphocytes % (Manual) Monocytes % (Manual) Eosinophils % (Manual) Nucleated RBC % Seg Neutrophils # Seg Neutrophils # Man Lymphocytes # (Manual) Monocytes # (Manual) Eosinophils # (Manual) PT INR APTT Fibrinogen POC ABG pH ABG pH POC ABG pCO2 POC ABG pO2 ABG pO2 ABG HCO3 ABG O2 Saturation ABG Base Excess ABG Hemoglobin Oxyhemoglobin Sodium Potassium Chloride Carbon Dioxide BUN Creatinine Glucose POC Glucose 267 H 307 H 292 H Uric Acid Calcium Phosphorus Magnesium Iron TIBC AST ALT Total Creatine Kinase CK-MB (CK-2) Troponin T NT-Pro-B Natriuret Pep Total Protein Albumin Triglycerides HDL Cholesterol Folate Urine WBC (Auto) Urine Creatinine Urine Total Protein Vancomycin Trough 06/05/19 06/05/19 06/05/19 03:52 06:41 12:29 WBC RBC Hgb Hct MCV MCH MCHC RDW Plt Count Lymph % (Auto) [place] % (Auto) Eos % (Auto) Lymph # [place] # Eos # Seg Neutrophils % Seg Neuts % (Manual) Lymphocytes % (Manual) Monocytes % (Manual) Eosinophils % (Manual) Nucleated RBC % Seg Neutrophils # Seg Neutrophils # Man Lymphocytes # (Manual) Monocytes # (Manual) Eosinophils # (Manual) PT INR APTT Fibrinogen POC ABG pH 7.462 H ABG pH POC ABG pCO2 POC ABG pO2 ABG pO2 ABG HCO3 ABG O2 Saturation ABG Base Excess ABG Hemoglobin Oxyhemoglobin Sodium Potassium Chloride Carbon Dioxide BUN Creatinine Glucose POC Glucose 369 H 265 H Uric Acid Calcium Phosphorus Magnesium Iron TIBC AST ALT Total Creatine Kinase CK-MB (CK-2) Troponin T NT-Pro-B Natriuret Pep Total Protein Albumin Triglycerides HDL Cholesterol Folate Urine WBC (Auto) Urine Creatinine Urine Total Protein Vancomycin Trough 06/05/19 06/05/19 06/05/19 18:20 21:42 23:21 WBC RBC Hgb Hct MCV MCH MCHC RDW Plt Count Lymph % (Auto) [place] % (Auto) Eos % (Auto) Lymph # [place] # Eos # Seg Neutrophils % Seg Neuts % (Manual) Lymphocytes % (Manual) Monocytes % (Manual) Eosinophils % (Manual) Nucleated RBC % Seg Neutrophils # Seg Neutrophils # Man Lymphocytes # (Manual) Monocytes # (Manual) Eosinophils # (Manual) PT INR APTT Fibrinogen POC ABG pH ABG pH POC ABG pCO2 POC ABG pO2 ABG pO2 ABG HCO3 ABG O2 Saturation ABG Base Excess ABG Hemoglobin Oxyhemoglobin Sodium Potassium Chloride Carbon Dioxide BUN Creatinine Glucose POC Glucose 249 H 246 H 274 H Uric Acid Calcium Phosphorus Magnesium Iron TIBC AST ALT Total Creatine Kinase CK-MB (CK-2) Troponin T NT-Pro-B Natriuret Pep Total Protein Albumin Triglycerides HDL Cholesterol Folate Urine WBC (Auto) Urine Creatinine Urine Total Protein Vancomycin Trough 06/06/19 06/06/19 06/06/19 04:00 05:49 11:34 WBC 18.1 H RBC 3.53 L Hgb 9.5 L Hct 30.3 L MCV MCH 27 L MCHC 31 L RDW 19.5 H Plt Count Lymph % (Auto) [place] % (Auto) Eos % (Auto) Lymph # [place] # Eos # Seg Neutrophils % Seg Neuts % (Manual) 87.0 H Lymphocytes % (Manual) 3.0 L Monocytes % (Manual) 8.0 H Eosinophils % (Manual) Nucleated RBC % Seg Neutrophils # Seg Neutrophils # Man 15.7 H Lymphocytes # (Manual) 0.5 L Monocytes # (Manual) 1.4 H Eosinophils # (Manual) PT INR APTT Fibrinogen POC ABG pH ABG pH 7.472 H POC ABG pCO2 POC ABG pO2 ABG pO2 76.4 L ABG HCO3 28.1 H ABG O2 Saturation ABG Base Excess 4.3 H ABG Hemoglobin 12.5 L Oxyhemoglobin 93.8 L Sodium Potassium Chloride Carbon Dioxide BUN Creatinine Glucose POC Glucose 340 H Uric Acid Calcium Phosphorus Magnesium Iron TIBC AST ALT Total Creatine Kinase CK-MB (CK-2) Troponin T NT-Pro-B Natriuret Pep Total Protein Albumin Triglycerides HDL Cholesterol Folate Urine WBC (Auto) Urine Creatinine Urine Total Protein Vancomycin Trough 06/06/19 06/06/19 06/06/19 11:34 12:11 18:10 WBC RBC Hgb Hct MCV MCH MCHC RDW Plt Count Lymph % (Auto) [place] % (Auto) Eos % (Auto) Lymph # [place] # Eos # Seg Neutrophils % Seg Neuts % (Manual) Lymphocytes % (Manual) Monocytes % (Manual) Eosinophils % (Manual) Nucleated RBC % Seg Neutrophils # Seg Neutrophils # Man Lymphocytes # (Manual) Monocytes # (Manual) Eosinophils # (Manual) PT INR APTT Fibrinogen POC ABG pH ABG pH POC ABG pCO2 POC ABG pO2 ABG pO2 ABG HCO3 ABG O2 Saturation ABG Base Excess ABG Hemoglobin Oxyhemoglobin Sodium Potassium Chloride Carbon Dioxide BUN 70 H Creatinine Glucose 310 H POC Glucose 283 H 301 H Uric Acid Calcium 8.3 L Phosphorus 4.60 H Magnesium Iron TIBC AST ALT 75 H Total Creatine Kinase CK-MB (CK-2) Troponin T NT-Pro-B Natriuret Pep Total Protein 5.6 L Albumin 2.9 L Triglycerides HDL Cholesterol Folate Urine WBC (Auto) Urine Creatinine Urine Total Protein Vancomycin Trough 06/06/19 06/06/19 06/07/19 22:21 23:16 04:30 WBC RBC Hgb Hct MCV MCH MCHC RDW Plt Count Lymph % (Auto) [place] % (Auto) Eos % (Auto) Lymph # [place] # Eos # Seg Neutrophils % Seg Neuts % (Manual) Lymphocytes % (Manual) Monocytes % (Manual) Eosinophils % (Manual) Nucleated RBC % Seg Neutrophils # Seg Neutrophils # Man Lymphocytes # (Manual) Monocytes # (Manual) Eosinophils # (Manual) PT INR APTT Fibrinogen POC ABG pH ABG pH 7.480 H POC ABG pCO2 POC ABG pO2 ABG pO2 77.0 L ABG HCO3 27.2 H ABG O2 Saturation ABG Base Excess 3.5 H ABG Hemoglobin 7.1 L Oxyhemoglobin 94.2 L Sodium Potassium Chloride Carbon Dioxide BUN Creatinine Glucose POC Glucose 289 H 343 H Uric Acid Calcium Phosphorus Magnesium Iron TIBC AST ALT Total Creatine Kinase CK-MB (CK-2) Troponin T NT-Pro-B Natriuret Pep Total Protein Albumin Triglycerides HDL Cholesterol Folate Urine WBC (Auto) Urine Creatinine Urine Total Protein Vancomycin Trough 06/07/19 06/07/19 06/07/19 05:15 12:52 18:41 WBC RBC Hgb Hct MCV MCH MCHC RDW Plt Count Lymph % (Auto) [place] % (Auto) Eos % (Auto) Lymph # [place] # Eos # Seg Neutrophils % Seg Neuts % (Manual) Lymphocytes % (Manual) Monocytes % (Manual) Eosinophils % (Manual) Nucleated RBC % Seg Neutrophils # Seg Neutrophils # Man Lymphocytes # (Manual) Monocytes # (Manual) Eosinophils # (Manual) PT INR APTT Fibrinogen POC ABG pH ABG pH POC ABG pCO2 POC ABG pO2 ABG pO2 ABG HCO3 ABG O2 Saturation ABG Base Excess ABG Hemoglobin Oxyhemoglobin Sodium Potassium Chloride Carbon Dioxide BUN Creatinine Glucose POC Glucose 307 H 226 H 187 H Uric Acid Calcium Phosphorus Magnesium Iron TIBC AST ALT Total Creatine Kinase CK-MB (CK-2) Troponin T NT-Pro-B Natriuret Pep Total Protein Albumin Triglycerides HDL Cholesterol Folate Urine WBC (Auto) Urine Creatinine Urine Total Protein Vancomycin Trough 06/07/19 06/07/19 06/08/19 22:54 23:46 04:20 WBC 16.0 H RBC Hgb 10.0 L Hct 32.1 L MCV MCH 27 L MCHC 31 L RDW 19.4 H Plt Count Lymph % (Auto) [place] % (Auto) Eos % (Auto) Lymph # [place] # Eos # Seg Neutrophils % Seg Neuts % (Manual) 87.0 H Lymphocytes % (Manual) 7.0 L Monocytes % (Manual) Eosinophils % (Manual) Nucleated RBC % Seg Neutrophils # Seg Neutrophils # Man 13.9 H Lymphocytes # (Manual) 1.1 L Monocytes # (Manual) 1.0 H Eosinophils # (Manual) PT INR APTT Fibrinogen POC ABG pH ABG pH POC ABG pCO2 POC ABG pO2 ABG pO2 ABG HCO3 ABG O2 Saturation ABG Base Excess ABG Hemoglobin Oxyhemoglobin Sodium Potassium Chloride Carbon Dioxide BUN Creatinine Glucose POC Glucose 199 H 172 H Uric Acid Calcium Phosphorus Magnesium Iron TIBC AST ALT Total Creatine Kinase CK-MB (CK-2) Troponin T NT-Pro-B Natriuret Pep Total Protein Albumin Triglycerides HDL Cholesterol Folate Urine WBC (Auto) Urine Creatinine Urine Total Protein Vancomycin Trough 06/08/19 06/08/19 06/08/19 04:20 05:15 11:31 WBC RBC Hgb Hct MCV MCH MCHC RDW Plt Count Lymph % (Auto) [place] % (Auto) Eos % (Auto) Lymph # [place] # Eos # Seg Neutrophils % Seg Neuts % (Manual) Lymphocytes % (Manual) Monocytes % (Manual) Eosinophils % (Manual) Nucleated RBC % Seg Neutrophils # Seg Neutrophils # Man Lymphocytes # (Manual) Monocytes # (Manual) Eosinophils # (Manual) PT INR APTT Fibrinogen POC ABG pH ABG pH POC ABG pCO2 POC ABG pO2 ABG pO2 ABG HCO3 ABG O2 Saturation ABG Base Excess ABG Hemoglobin Oxyhemoglobin Sodium 146 H D Potassium Chloride Carbon Dioxide BUN 77 H Creatinine Glucose 205 H POC Glucose 209 H 181 H Uric Acid Calcium Phosphorus Magnesium Iron TIBC AST ALT 66 H Total Creatine Kinase CK-MB (CK-2) Troponin T NT-Pro-B Natriuret Pep Total Protein 5.5 L Albumin 2.9 L Triglycerides HDL Cholesterol Folate Urine WBC (Auto) Urine Creatinine Urine Total Protein Vancomycin Trough 06/08/19 06/08/19 06/09/19 17:28 23:24 05:20 WBC RBC Hgb Hct MCV MCH MCHC RDW Plt Count Lymph % (Auto) [place] % (Auto) Eos % (Auto) Lymph # [place] # Eos # Seg Neutrophils % Seg Neuts % (Manual) Lymphocytes % (Manual) Monocytes % (Manual) Eosinophils % (Manual) Nucleated RBC % Seg Neutrophils # Seg Neutrophils # Man Lymphocytes # (Manual) Monocytes # (Manual) Eosinophils # (Manual) PT INR APTT Fibrinogen POC ABG pH ABG pH POC ABG pCO2 POC ABG pO2 ABG pO2 ABG HCO3 ABG O2 Saturation ABG Base Excess ABG Hemoglobin Oxyhemoglobin Sodium Potassium Chloride Carbon Dioxide BUN Creatinine Glucose POC Glucose 215 H 200 H 173 H Uric Acid Calcium Phosphorus Magnesium Iron TIBC AST ALT Total Creatine Kinase CK-MB (CK-2) Troponin T NT-Pro-B Natriuret Pep Total Protein Albumin Triglycerides HDL Cholesterol Folate Urine WBC (Auto) Urine Creatinine Urine Total Protein Vancomycin Trough 06/09/19 06/09/19 06/09/19 12:07 18:32 23:51 WBC RBC Hgb Hct MCV MCH MCHC RDW Plt Count Lymph % (Auto) [place] % (Auto) Eos % (Auto) Lymph # [place] # Eos # Seg Neutrophils % Seg Neuts % (Manual) Lymphocytes % (Manual) Monocytes % (Manual) Eosinophils % (Manual) Nucleated RBC % Seg Neutrophils # Seg Neutrophils # Man Lymphocytes # (Manual) Monocytes # (Manual) Eosinophils # (Manual) PT INR APTT Fibrinogen POC ABG pH ABG pH POC ABG pCO2 POC ABG pO2 ABG pO2 ABG HCO3 ABG O2 Saturation ABG Base Excess ABG Hemoglobin Oxyhemoglobin Sodium Potassium Chloride Carbon Dioxide BUN Creatinine Glucose POC Glucose 117 H 169 H 147 H Uric Acid Calcium Phosphorus Magnesium Iron TIBC AST ALT Total Creatine Kinase CK-MB (CK-2) Troponin T NT-Pro-B Natriuret Pep Total Protein Albumin Triglycerides HDL Cholesterol Folate Urine WBC (Auto) Urine Creatinine Urine Total Protein Vancomycin Trough 06/10/19 06/10/19 06/10/19 05:45 05:45 06:01 WBC 14.6 H RBC Hgb 9.9 L Hct 32.2 L MCV MCH 27 L MCHC 31 L RDW 19.6 H Plt Count Lymph % (Auto) 10.5 L [place] % (Auto) 9.4 H Eos % (Auto) Lymph # [place] # 1.4 H Eos # Seg Neutrophils % 79.9 H Seg Neuts % (Manual) Lymphocytes % (Manual) Monocytes % (Manual) Eosinophils % (Manual) Nucleated RBC % Seg Neutrophils # 11.7 H Seg Neutrophils # Man Lymphocytes # (Manual) Monocytes # (Manual) Eosinophils # (Manual) PT INR APTT Fibrinogen POC ABG pH ABG pH POC ABG pCO2 POC ABG pO2 ABG pO2 ABG HCO3 ABG O2 Saturation ABG Base Excess ABG Hemoglobin Oxyhemoglobin Sodium 150 H Potassium Chloride 108.3 H Carbon Dioxide BUN 49 H Creatinine Glucose 172 H POC Glucose 165 H Uric Acid Calcium Phosphorus Magnesium 1.40 L Iron TIBC AST ALT Total Creatine Kinase CK-MB (CK-2) Troponin T NT-Pro-B Natriuret Pep Total Protein Albumin Triglycerides HDL Cholesterol Folate Urine WBC (Auto) Urine Creatinine Urine Total Protein Vancomycin Trough 06/10/19 06/10/19 06/11/19 12:11 18:30 00:02 WBC RBC Hgb Hct MCV MCH MCHC RDW Plt Count Lymph % (Auto) [place] % (Auto) Eos % (Auto) Lymph # [place] # Eos # Seg Neutrophils % Seg Neuts % (Manual) Lymphocytes % (Manual) Monocytes % (Manual) Eosinophils % (Manual) Nucleated RBC % Seg Neutrophils # Seg Neutrophils # Man Lymphocytes # (Manual) Monocytes # (Manual) Eosinophils # (Manual) PT INR APTT Fibrinogen POC ABG pH ABG pH POC ABG pCO2 POC ABG pO2 ABG pO2 ABG HCO3 ABG O2 Saturation ABG Base Excess ABG Hemoglobin Oxyhemoglobin Sodium Potassium Chloride Carbon Dioxide BUN Creatinine Glucose POC Glucose 150 H 154 H 130 H Uric Acid Calcium Phosphorus Magnesium Iron TIBC AST ALT Total Creatine Kinase CK-MB (CK-2) Troponin T NT-Pro-B Natriuret Pep Total Protein Albumin Triglycerides HDL Cholesterol Folate Urine WBC (Auto) Urine Creatinine Urine Total Protein Vancomycin Trough 06/11/19 06/11/19 06/11/19 05:33 08:34 12:33 WBC RBC Hgb Hct MCV MCH MCHC RDW Plt Count Lymph % (Auto) [place] % (Auto) Eos % (Auto) Lymph # [place] # Eos # Seg Neutrophils % Seg Neuts % (Manual) Lymphocytes % (Manual) Monocytes % (Manual) Eosinophils % (Manual) Nucleated RBC % Seg Neutrophils # Seg Neutrophils # Man Lymphocytes # (Manual) Monocytes # (Manual) Eosinophils # (Manual) PT INR APTT Fibrinogen POC ABG pH ABG pH POC ABG pCO2 POC ABG pO2 ABG pO2 ABG HCO3 ABG O2 Saturation ABG Base Excess ABG Hemoglobin Oxyhemoglobin Sodium 154 H Potassium Chloride 111.6 H Carbon Dioxide BUN 41 H Creatinine Glucose 147 H POC Glucose 183 H 185 H Uric Acid Calcium Phosphorus Magnesium Iron TIBC AST ALT Total Creatine Kinase CK-MB (CK-2) Troponin T NT-Pro-B Natriuret Pep Total Protein Albumin Triglycerides HDL Cholesterol Folate Urine WBC (Auto) Urine Creatinine Urine Total Protein Vancomycin Trough 06/11/19 06/11/19 06/12/19 18:22 23:46 03:21 WBC 11.9 H RBC 3.61 L Hgb 9.9 L Hct 31.7 L MCV MCH 27 L MCHC 31 L RDW 19.3 H Plt Count Lymph % (Auto) 10.6 L [place] % (Auto) 8.6 H Eos % (Auto) Lymph # [place] # 1.0 H Eos # Seg Neutrophils % 80.6 H Seg Neuts % (Manual) Lymphocytes % (Manual) Monocytes % (Manual) Eosinophils % (Manual) Nucleated RBC % Seg Neutrophils # 9.6 H Seg Neutrophils # Man Lymphocytes # (Manual) Monocytes # (Manual) Eosinophils # (Manual) PT INR APTT Fibrinogen POC ABG pH ABG pH POC ABG pCO2 POC ABG pO2 ABG pO2 ABG HCO3 ABG O2 Saturation ABG Base Excess ABG Hemoglobin Oxyhemoglobin Sodium Potassium Chloride Carbon Dioxide BUN Creatinine Glucose POC Glucose 158 H 182 H Uric Acid Calcium Phosphorus Magnesium Iron TIBC AST ALT Total Creatine Kinase CK-MB (CK-2) Troponin T NT-Pro-B Natriuret Pep Total Protein Albumin Triglycerides HDL Cholesterol Folate Urine WBC (Auto) Urine Creatinine Urine Total Protein Vancomycin Trough 06/12/19 06/12/19 06/12/19 03:21 06:04 11:28 WBC RBC Hgb Hct MCV MCH MCHC RDW Plt Count Lymph % (Auto) [place] % (Auto) Eos % (Auto) Lymph # [place] # Eos # Seg Neutrophils % Seg Neuts % (Manual) Lymphocytes % (Manual) Monocytes % (Manual) Eosinophils % (Manual) Nucleated RBC % Seg Neutrophils # Seg Neutrophils # Man Lymphocytes # (Manual) Monocytes # (Manual) Eosinophils # (Manual) PT INR APTT Fibrinogen POC ABG pH ABG pH POC ABG pCO2 POC ABG pO2 ABG pO2 ABG HCO3 ABG O2 Saturation ABG Base Excess ABG Hemoglobin Oxyhemoglobin Sodium 148 H Potassium Chloride 107.3 H Carbon Dioxide BUN 34 H Creatinine 0.7 L Glucose 194 H POC Glucose 133 H 167 H Uric Acid Calcium Phosphorus Magnesium 1.40 L Iron TIBC AST ALT Total Creatine Kinase CK-MB (CK-2) Troponin T NT-Pro-B Natriuret Pep Total Protein Albumin Triglycerides HDL Cholesterol Folate Urine WBC (Auto) Urine Creatinine Urine Total Protein Vancomycin Trough 06/12/19 06/12/19 06/13/19 18:47 21:27 00:04 WBC RBC Hgb Hct MCV MCH MCHC RDW Plt Count Lymph % (Auto) [place] % (Auto) Eos % (Auto) Lymph # [place] # Eos # Seg Neutrophils % Seg Neuts % (Manual) Lymphocytes % (Manual) Monocytes % (Manual) Eosinophils % (Manual) Nucleated RBC % Seg Neutrophils # Seg Neutrophils # Man Lymphocytes # (Manual) Monocytes # (Manual) Eosinophils # (Manual) PT INR APTT Fibrinogen POC ABG pH ABG pH POC ABG pCO2 POC ABG pO2 ABG pO2 ABG HCO3 ABG O2 Saturation ABG Base Excess ABG Hemoglobin Oxyhemoglobin Sodium Potassium Chloride Carbon Dioxide BUN Creatinine Glucose POC Glucose 210 H 263 H 248 H Uric Acid Calcium Phosphorus Magnesium Iron TIBC AST ALT Total Creatine Kinase CK-MB (CK-2) Troponin T NT-Pro-B Natriuret Pep Total Protein Albumin Triglycerides HDL Cholesterol Folate Urine WBC (Auto) Urine Creatinine Urine Total Protein Vancomycin Trough 06/13/19 06/13/19 06/13/19 04:32 05:46 13:30 WBC RBC Hgb Hct MCV MCH MCHC RDW Plt Count Lymph % (Auto) [place] % (Auto) Eos % (Auto) Lymph # [place] # Eos # Seg Neutrophils % Seg Neuts % (Manual) Lymphocytes % (Manual) Monocytes % (Manual) Eosinophils % (Manual) Nucleated RBC % Seg Neutrophils # Seg Neutrophils # Man Lymphocytes # (Manual) Monocytes # (Manual) Eosinophils # (Manual) PT INR APTT Fibrinogen POC ABG pH ABG pH POC ABG pCO2 POC ABG pO2 ABG pO2 ABG HCO3 ABG O2 Saturation ABG Base Excess ABG Hemoglobin Oxyhemoglobin Sodium Potassium Chloride Carbon Dioxide BUN 27 H Creatinine 0.7 L Glucose 253 H POC Glucose 201 H 241 H Uric Acid Calcium Phosphorus Magnesium Iron TIBC AST ALT Total Creatine Kinase CK-MB (CK-2) Troponin T NT-Pro-B Natriuret Pep Total Protein Albumin Triglycerides HDL Cholesterol Folate Urine WBC (Auto) Urine Creatinine Urine Total Protein Vancomycin Trough 06/13/19 06/13/19 06/14/19 17:33 23:49 04:50 WBC RBC Hgb Hct MCV MCH MCHC RDW Plt Count Lymph % (Auto) [place] % (Auto) Eos % (Auto) Lymph # [place] # Eos # Seg Neutrophils % Seg Neuts % (Manual) Lymphocytes % (Manual) Monocytes % (Manual) Eosinophils % (Manual) Nucleated RBC % Seg Neutrophils # Seg Neutrophils # Man Lymphocytes # (Manual) Monocytes # (Manual) Eosinophils # (Manual) PT INR APTT Fibrinogen POC ABG pH ABG pH POC ABG pCO2 POC ABG pO2 ABG pO2 ABG HCO3 ABG O2 Saturation ABG Base Excess ABG Hemoglobin Oxyhemoglobin Sodium Potassium Chloride Carbon Dioxide BUN 37 H Creatinine Glucose 256 H POC Glucose 264 H 236 H Uric Acid Calcium Phosphorus Magnesium Iron TIBC AST ALT Total Creatine Kinase CK-MB (CK-2) Troponin T NT-Pro-B Natriuret Pep Total Protein Albumin Triglycerides HDL Cholesterol Folate Urine WBC (Auto) Urine Creatinine Urine Total Protein Vancomycin Trough 06/14/19 06/14/19 06/14/19 05:26 12:31 18:32 WBC RBC Hgb Hct MCV MCH MCHC RDW Plt Count Lymph % (Auto) [place] % (Auto) Eos % (Auto) Lymph # [place] # Eos # Seg Neutrophils % Seg Neuts % (Manual) Lymphocytes % (Manual) Monocytes % (Manual) Eosinophils % (Manual) Nucleated RBC % Seg Neutrophils # Seg Neutrophils # Man Lymphocytes # (Manual) Monocytes # (Manual) Eosinophils # (Manual) PT INR APTT Fibrinogen POC ABG pH ABG pH POC ABG pCO2 POC ABG pO2 ABG pO2 ABG HCO3 ABG O2 Saturation ABG Base Excess ABG Hemoglobin Oxyhemoglobin Sodium Potassium Chloride Carbon Dioxide BUN Creatinine Glucose POC Glucose 239 H 116 H 247 H Uric Acid Calcium Phosphorus Magnesium Iron TIBC AST ALT Total Creatine Kinase CK-MB (CK-2) Troponin T NT-Pro-B Natriuret Pep Total Protein Albumin Triglycerides HDL Cholesterol Folate Urine WBC (Auto) Urine Creatinine Urine Total Protein Vancomycin Trough 06/14/19 06/15/19 06/15/19 23:57 04:05 05:55 WBC RBC Hgb Hct MCV MCH MCHC RDW Plt Count Lymph % (Auto) [place] % (Auto) Eos % (Auto) Lymph # [place] # Eos # Seg Neutrophils % Seg Neuts % (Manual) Lymphocytes % (Manual) Monocytes % (Manual) Eosinophils % (Manual) Nucleated RBC % Seg Neutrophils # Seg Neutrophils # Man Lymphocytes # (Manual) Monocytes # (Manual) Eosinophils # (Manual) PT INR APTT Fibrinogen POC ABG pH ABG pH POC ABG pCO2 POC ABG pO2 ABG pO2 ABG HCO3 ABG O2 Saturation ABG Base Excess ABG Hemoglobin Oxyhemoglobin Sodium Potassium Chloride Carbon Dioxide BUN 46 H Creatinine 0.7 L Glucose 265 H POC Glucose 206 H 265 H Uric Acid Calcium Phosphorus Magnesium Iron TIBC AST ALT Total Creatine Kinase CK-MB (CK-2) Troponin T NT-Pro-B Natriuret Pep Total Protein Albumin Triglycerides HDL Cholesterol Folate Urine WBC (Auto) Urine Creatinine Urine Total Protein Vancomycin Trough 06/15/19 06/15/19 06/15/19 12:08 18:45 23:41 WBC RBC Hgb Hct MCV MCH MCHC RDW Plt Count Lymph % (Auto) [place] % (Auto) Eos % (Auto) Lymph # [place] # Eos # Seg Neutrophils % Seg Neuts % (Manual) Lymphocytes % (Manual) Monocytes % (Manual) Eosinophils % (Manual) Nucleated RBC % Seg Neutrophils # Seg Neutrophils # Man Lymphocytes # (Manual) Monocytes # (Manual) Eosinophils # (Manual) PT INR APTT Fibrinogen POC ABG pH ABG pH POC ABG pCO2 POC ABG pO2 ABG pO2 ABG HCO3 ABG O2 Saturation ABG Base Excess ABG Hemoglobin Oxyhemoglobin Sodium Potassium Chloride Carbon Dioxide BUN Creatinine Glucose POC Glucose 224 H 177 H 193 H Uric Acid Calcium Phosphorus Magnesium Iron TIBC AST ALT Total Creatine Kinase CK-MB (CK-2) Troponin T NT-Pro-B Natriuret Pep Total Protein Albumin Triglycerides HDL Cholesterol Folate Urine WBC (Auto) Urine Creatinine Urine Total Protein Vancomycin Trough 06/16/19 06/16/19 06/16/19 05:00 05:00 05:40 WBC 11.9 H RBC 3.24 L Hgb 9.0 L Hct 29.0 L MCV MCH MCHC 31 L RDW 18.6 H Plt Count 111 L Lymph % (Auto) [place] % (Auto) Eos % (Auto) Lymph # [place] # Eos # Seg Neutrophils % Seg Neuts % (Manual) 92.0 H Lymphocytes % (Manual) 2.0 L Monocytes % (Manual) Eosinophils % (Manual) Nucleated RBC % Seg Neutrophils # Seg Neutrophils # Man 10.9 H Lymphocytes # (Manual) 0.2 L Monocytes # (Manual) Eosinophils # (Manual) PT INR APTT Fibrinogen POC ABG pH ABG pH POC ABG pCO2 POC ABG pO2 ABG pO2 ABG HCO3 ABG O2 Saturation ABG Base Excess ABG Hemoglobin Oxyhemoglobin Sodium Potassium Chloride Carbon Dioxide 33 H BUN 49 H Creatinine 0.7 L Glucose 264 H POC Glucose 247 H Uric Acid Calcium Phosphorus Magnesium Iron TIBC AST ALT Total Creatine Kinase CK-MB (CK-2) Troponin T NT-Pro-B Natriuret Pep Total Protein Albumin Triglycerides HDL Cholesterol Folate Urine WBC (Auto) Urine Creatinine Urine Total Protein Vancomycin Trough 06/16/19 06/16/19 06/16/19 12:03 17:11 18:11 WBC RBC Hgb Hct MCV MCH MCHC RDW Plt Count Lymph % (Auto) [place] % (Auto) Eos % (Auto) Lymph # [place] # Eos # Seg Neutrophils % Seg Neuts % (Manual) Lymphocytes % (Manual) Monocytes % (Manual) Eosinophils % (Manual) Nucleated RBC % Seg Neutrophils # Seg Neutrophils # Man Lymphocytes # (Manual) Monocytes # (Manual) Eosinophils # (Manual) PT INR APTT Fibrinogen POC ABG pH ABG pH 7.289 L POC ABG pCO2 POC ABG pO2 ABG pO2 399.3 H ABG HCO3 30.1 H ABG O2 Saturation 99.6 H ABG Base Excess ABG Hemoglobin 8.6 L Oxyhemoglobin Sodium Potassium Chloride Carbon Dioxide BUN Creatinine Glucose POC Glucose 252 H 254 H Uric Acid Calcium Phosphorus Magnesium Iron TIBC AST ALT Total Creatine Kinase CK-MB (CK-2) Troponin T NT-Pro-B Natriuret Pep Total Protein Albumin Triglycerides HDL Cholesterol Folate Urine WBC (Auto) Urine Creatinine Urine Total Protein Vancomycin Trough 06/16/19 06/17/19 06/17/19 23:16 05:30 05:53 WBC RBC Hgb Hct MCV MCH MCHC RDW Plt Count Lymph % (Auto) [place] % (Auto) Eos % (Auto) Lymph # [place] # Eos # Seg Neutrophils % Seg Neuts % (Manual) Lymphocytes % (Manual) Monocytes % (Manual) Eosinophils % (Manual) Nucleated RBC % Seg Neutrophils # Seg Neutrophils # Man Lymphocytes # (Manual) Monocytes # (Manual) Eosinophils # (Manual) PT INR APTT Fibrinogen POC ABG pH ABG pH POC ABG pCO2 POC ABG pO2 ABG pO2 ABG HCO3 ABG O2 Saturation ABG Base Excess ABG Hemoglobin Oxyhemoglobin Sodium 147 H Potassium Chloride Carbon Dioxide 32 H BUN 60 H Creatinine Glucose 205 H POC Glucose 238 H 211 H Uric Acid Calcium Phosphorus Magnesium Iron TIBC AST ALT Total Creatine Kinase CK-MB (CK-2) Troponin T NT-Pro-B Natriuret Pep Total Protein Albumin Triglycerides HDL Cholesterol Folate Urine WBC (Auto) Urine Creatinine Urine Total Protein Vancomycin Trough 06/17/19 06/17/19 06/17/19 09:50 12:27 12:45 WBC RBC 2.79 L Hgb 8.2 L Hct 24.6 L MCV MCH MCHC RDW 18.5 H Plt Count 95 L Lymph % (Auto) [place] % (Auto) Eos % (Auto) Lymph # [place] # Eos # Seg Neutrophils % Seg Neuts % (Manual) Lymphocytes % (Manual) Monocytes % (Manual) Eosinophils % (Manual) Nucleated RBC % Seg Neutrophils # Seg Neutrophils # Man Lymphocytes # (Manual) Monocytes # (Manual) Eosinophils # (Manual) PT INR APTT Fibrinogen 194 L POC ABG pH ABG pH POC ABG pCO2 POC ABG pO2 ABG pO2 ABG HCO3 ABG O2 Saturation ABG Base Excess ABG Hemoglobin Oxyhemoglobin Sodium Potassium Chloride Carbon Dioxide BUN Creatinine Glucose POC Glucose 224 H Uric Acid Calcium Phosphorus Magnesium Iron TIBC AST ALT Total Creatine Kinase CK-MB (CK-2) Troponin T NT-Pro-B Natriuret Pep Total Protein Albumin Triglycerides HDL Cholesterol Folate Urine WBC (Auto) Urine Creatinine Urine Total Protein Vancomycin Trough 06/17/19 06/17/19 06/17/19 18:41 22:00 23:23 WBC RBC Hgb Hct MCV MCH MCHC RDW Plt Count Lymph % (Auto) [place] % (Auto) Eos % (Auto) Lymph # [place] # Eos # Seg Neutrophils % Seg Neuts % (Manual) Lymphocytes % (Manual) Monocytes % (Manual) Eosinophils % (Manual) Nucleated RBC % Seg Neutrophils # Seg Neutrophils # Man Lymphocytes # (Manual) Monocytes # (Manual) Eosinophils # (Manual) PT INR APTT Fibrinogen POC ABG pH ABG pH POC ABG pCO2 POC ABG pO2 ABG pO2 ABG HCO3 ABG O2 Saturation ABG Base Excess ABG Hemoglobin Oxyhemoglobin Sodium Potassium Chloride Carbon Dioxide BUN Creatinine Glucose POC Glucose 198 H 166 H 171 H Uric Acid Calcium Phosphorus Magnesium Iron TIBC AST ALT Total Creatine Kinase CK-MB (CK-2) Troponin T NT-Pro-B Natriuret Pep Total Protein Albumin Triglycerides HDL Cholesterol Folate Urine WBC (Auto) Urine Creatinine Urine Total Protein Vancomycin Trough 06/17/19 06/18/19 06/18/19 Unknown 03:50 04:25 WBC RBC Hgb Hct MCV MCH MCHC RDW Plt Count Lymph % (Auto) [place] % (Auto) Eos % (Auto) Lymph # [place] # Eos # Seg Neutrophils % Seg Neuts % (Manual) Lymphocytes % (Manual) Monocytes % (Manual) Eosinophils % (Manual) Nucleated RBC % Seg Neutrophils # Seg Neutrophils # Man Lymphocytes # (Manual) Monocytes # (Manual) Eosinophils # (Manual) PT INR APTT Fibrinogen POC ABG pH ABG pH 7.564 H 7.499 H POC ABG pCO2 POC ABG pO2 ABG pO2 238.6 H 130.8 H ABG HCO3 33.6 H 32.5 H ABG O2 Saturation 99.4 H ABG Base Excess 10.6 H 8.5 H ABG Hemoglobin 7.9 L 8.8 L Oxyhemoglobin Sodium 151 H Potassium 3.4 L Chloride Carbon Dioxide BUN 66 H Creatinine Glucose 189 H POC Glucose Uric Acid Calcium Phosphorus Magnesium Iron TIBC AST ALT Total Creatine Kinase CK-MB (CK-2) Troponin T NT-Pro-B Natriuret Pep Total Protein Albumin Triglycerides HDL Cholesterol Folate Urine WBC (Auto) Urine Creatinine Urine Total Protein Vancomycin Trough 06/18/19 06/18/19 06/18/19 05:25 05:27 11:50 WBC RBC 2.61 L Hgb 7.4 L Hct 22.9 L MCV MCH MCHC RDW 19.9 H Plt Count 81 L Lymph % (Auto) 12.9 L [place] % (Auto) 7.7 H Eos % (Auto) Lymph # 1.1 L [place] # Eos # Seg Neutrophils % 77.4 H Seg Neuts % (Manual) Lymphocytes % (Manual) Monocytes % (Manual) Eosinophils % (Manual) Nucleated RBC % Seg Neutrophils # Seg Neutrophils # Man Lymphocytes # (Manual) Monocytes # (Manual) Eosinophils # (Manual) PT INR APTT Fibrinogen POC ABG pH ABG pH POC ABG pCO2 POC ABG pO2 ABG pO2 ABG HCO3 ABG O2 Saturation ABG Base Excess ABG Hemoglobin Oxyhemoglobin Sodium Potassium Chloride Carbon Dioxide BUN Creatinine Glucose POC Glucose 186 H 263 H Uric Acid Calcium Phosphorus Magnesium Iron TIBC AST ALT Total Creatine Kinase CK-MB (CK-2) Troponin T NT-Pro-B Natriuret Pep Total Protein Albumin Triglycerides HDL Cholesterol Folate Urine WBC (Auto) Urine Creatinine Urine Total Protein Vancomycin Trough 06/18/19 06/18/19 06/18/19 18:35 21:31 23:21 WBC RBC Hgb Hct MCV MCH MCHC RDW Plt Count Lymph % (Auto) [place] % (Auto) Eos % (Auto) Lymph # [place] # Eos # Seg Neutrophils % Seg Neuts % (Manual) Lymphocytes % (Manual) Monocytes % (Manual) Eosinophils % (Manual) Nucleated RBC % Seg Neutrophils # Seg Neutrophils # Man Lymphocytes # (Manual) Monocytes # (Manual) Eosinophils # (Manual) PT INR APTT Fibrinogen POC ABG pH ABG pH POC ABG pCO2 POC ABG pO2 ABG pO2 ABG HCO3 ABG O2 Saturation ABG Base Excess ABG Hemoglobin Oxyhemoglobin Sodium Potassium Chloride Carbon Dioxide BUN Creatinine Glucose POC Glucose 154 H 186 H 202 H Uric Acid Calcium Phosphorus Magnesium Iron TIBC AST ALT Total Creatine Kinase CK-MB (CK-2) Troponin T NT-Pro-B Natriuret Pep Total Protein Albumin Triglycerides HDL Cholesterol Folate Urine WBC (Auto) Urine Creatinine Urine Total Protein Vancomycin Trough 06/19/19 06/19/19 06/19/19 03:18 04:30 04:30 WBC RBC 2.65 L Hgb 7.5 L Hct 23.1 L MCV MCH MCHC RDW 19.4 H Plt Count 74 L Lymph % (Auto) 8.8 L [place] % (Auto) 9.4 H Eos % (Auto) 4.7 H Lymph # 0.6 L [place] # Eos # Seg Neutrophils % 76.6 H Seg Neuts % (Manual) Lymphocytes % (Manual) Monocytes % (Manual) Eosinophils % (Manual) Nucleated RBC % Seg Neutrophils # Seg Neutrophils # Man Lymphocytes # (Manual) Monocytes # (Manual) Eosinophils # (Manual) PT INR APTT Fibrinogen POC ABG pH ABG pH 7.452 H POC ABG pCO2 POC ABG pO2 ABG pO2 105.5 H ABG HCO3 32.3 H ABG O2 Saturation ABG Base Excess 7.6 H ABG Hemoglobin 6.9 L Oxyhemoglobin Sodium 150 H Potassium 3.3 L Chloride Carbon Dioxide 31 H BUN 56 H Creatinine Glucose 197 H POC Glucose Uric Acid Calcium Phosphorus Magnesium Iron TIBC AST ALT Total Creatine Kinase CK-MB (CK-2) Troponin T NT-Pro-B Natriuret Pep Total Protein Albumin Triglycerides 210 H HDL Cholesterol Folate Urine WBC (Auto) Urine Creatinine Urine Total Protein Vancomycin Trough 06/19/19 06/19/19 06/19/19 05:24 12:18 18:55 WBC RBC Hgb Hct MCV MCH MCHC RDW Plt Count Lymph % (Auto) [place] % (Auto) Eos % (Auto) Lymph # [place] # Eos # Seg Neutrophils % Seg Neuts % (Manual) Lymphocytes % (Manual) Monocytes % (Manual) Eosinophils % (Manual) Nucleated RBC % Seg Neutrophils # Seg Neutrophils # Man Lymphocytes # (Manual) Monocytes # (Manual) Eosinophils # (Manual) PT INR APTT Fibrinogen POC ABG pH ABG pH POC ABG pCO2 POC ABG pO2 ABG pO2 ABG HCO3 ABG O2 Saturation ABG Base Excess ABG Hemoglobin Oxyhemoglobin Sodium Potassium Chloride Carbon Dioxide BUN Creatinine Glucose POC Glucose 176 H 260 H 192 H Uric Acid Calcium Phosphorus Magnesium Iron TIBC AST ALT Total Creatine Kinase CK-MB (CK-2) Troponin T NT-Pro-B Natriuret Pep Total Protein Albumin Triglycerides HDL Cholesterol Folate Urine WBC (Auto) Urine Creatinine Urine Total Protein Vancomycin Trough 06/19/19 06/19/19 06/20/19 22:57 23:46 04:40 WBC RBC 2.79 L Hgb 7.9 L Hct 24.3 L MCV MCH MCHC RDW 19.6 H Plt Count 92 L Lymph % (Auto) 9.2 L [place] % (Auto) 12.0 H Eos % (Auto) 5.2 H Lymph # 0.9 L [place] # 1.2 H Eos # 0.5 H Seg Neutrophils % 73.3 H Seg Neuts % (Manual) Lymphocytes % (Manual) Monocytes % (Manual) Eosinophils % (Manual) Nucleated RBC % Seg Neutrophils # Seg Neutrophils # Man Lymphocytes # (Manual) Monocytes # (Manual) Eosinophils # (Manual) PT INR APTT Fibrinogen POC ABG pH ABG pH POC ABG pCO2 POC ABG pO2 ABG pO2 ABG HCO3 ABG O2 Saturation ABG Base Excess ABG Hemoglobin Oxyhemoglobin Sodium Potassium Chloride Carbon Dioxide BUN Creatinine Glucose POC Glucose 145 H 216 H Uric Acid Calcium Phosphorus Magnesium Iron TIBC AST ALT Total Creatine Kinase CK-MB (CK-2) Troponin T NT-Pro-B Natriuret Pep Total Protein Albumin Triglycerides HDL Cholesterol Folate Urine WBC (Auto) Urine Creatinine Urine Total Protein Vancomycin Trough 06/20/19 06/20/19 06/20/19 04:40 05:40 05:54 WBC RBC Hgb Hct MCV MCH MCHC RDW Plt Count Lymph % (Auto) [place] % (Auto) Eos % (Auto) Lymph # [place] # Eos # Seg Neutrophils % Seg Neuts % (Manual) Lymphocytes % (Manual) Monocytes % (Manual) Eosinophils % (Manual) Nucleated RBC % Seg Neutrophils # Seg Neutrophils # Man Lymphocytes # (Manual) Monocytes # (Manual) Eosinophils # (Manual) PT INR APTT Fibrinogen POC ABG pH ABG pH 7.455 H POC ABG pCO2 POC ABG pO2 ABG pO2 60.9 L ABG HCO3 30.3 H ABG O2 Saturation 92.3 L ABG Base Excess 5.8 H ABG Hemoglobin 8.2 L Oxyhemoglobin 90.1 L Sodium Potassium 3.5 L Chloride Carbon Dioxide BUN 59 H Creatinine Glucose 200 H POC Glucose 190 H Uric Acid Calcium Phosphorus Magnesium 1.60 L Iron TIBC AST ALT Total Creatine Kinase CK-MB (CK-2) Troponin T NT-Pro-B Natriuret Pep Total Protein Albumin Triglycerides HDL Cholesterol Folate Urine WBC (Auto) Urine Creatinine Urine Total Protein Vancomycin Trough 06/20/19 06/20/19 06/20/19 09:12 09:12 12:24 WBC RBC Hgb Hct MCV MCH MCHC RDW Plt Count Lymph % (Auto) [place] % (Auto) Eos % (Auto) Lymph # [place] # Eos # Seg Neutrophils % Seg Neuts % (Manual) Lymphocytes % (Manual) Monocytes % (Manual) Eosinophils % (Manual) Nucleated RBC % Seg Neutrophils # Seg Neutrophils # Man Lymphocytes # (Manual) Monocytes # (Manual) Eosinophils # (Manual) PT INR APTT Fibrinogen POC ABG pH ABG pH POC ABG pCO2 POC ABG pO2 ABG pO2 ABG HCO3 ABG O2 Saturation ABG Base Excess ABG Hemoglobin Oxyhemoglobin Sodium Potassium Chloride Carbon Dioxide BUN Creatinine Glucose POC Glucose 225 H Uric Acid Calcium Phosphorus Magnesium Iron 45 L TIBC 110 L AST ALT Total Creatine Kinase CK-MB (CK-2) Troponin T NT-Pro-B Natriuret Pep Total Protein Albumin Triglycerides HDL Cholesterol Folate 7.01 L Urine WBC (Auto) Urine Creatinine Urine Total Protein Vancomycin Trough 06/20/19 06/20/19 06/20/19 17:42 21:55 23:24 WBC RBC Hgb Hct MCV MCH MCHC RDW Plt Count Lymph % (Auto) [place] % (Auto) Eos % (Auto) Lymph # [place] # Eos # Seg Neutrophils % Seg Neuts % (Manual) Lymphocytes % (Manual) Monocytes % (Manual) Eosinophils % (Manual) Nucleated RBC % Seg Neutrophils # Seg Neutrophils # Man Lymphocytes # (Manual) Monocytes # (Manual) Eosinophils # (Manual) PT INR APTT Fibrinogen POC ABG pH ABG pH POC ABG pCO2 POC ABG pO2 ABG pO2 ABG HCO3 ABG O2 Saturation ABG Base Excess ABG Hemoglobin Oxyhemoglobin Sodium Potassium Chloride Carbon Dioxide BUN Creatinine Glucose POC Glucose 255 H 218 H 215 H Uric Acid Calcium Phosphorus Magnesium Iron TIBC AST ALT Total Creatine Kinase CK-MB (CK-2) Troponin T NT-Pro-B Natriuret Pep Total Protein Albumin Triglycerides HDL Cholesterol Folate Urine WBC (Auto) Urine Creatinine Urine Total Protein Vancomycin Trough 06/21/19 06/21/19 06/21/19 03:32 03:40 05:20 WBC 12.8 H RBC 3.03 L Hgb 8.5 L Hct 26.2 L MCV MCH MCHC RDW 19.4 H Plt Count 131 L Lymph % (Auto) [place] % (Auto) Eos % (Auto) Lymph # [place] # Eos # Seg Neutrophils % Seg Neuts % (Manual) 78.0 H Lymphocytes % (Manual) 5.0 L Monocytes % (Manual) 11.0 H Eosinophils % (Manual) Nucleated RBC % Seg Neutrophils # Seg Neutrophils # Man 10.0 H Lymphocytes # (Manual) 0.6 L Monocytes # (Manual) 1.4 H Eosinophils # (Manual) 0.5 H PT INR APTT Fibrinogen POC ABG pH ABG pH 7.476 H POC ABG pCO2 POC ABG pO2 ABG pO2 162.0 H ABG HCO3 26.8 H ABG O2 Saturation 99.1 H ABG Base Excess 3.1 H ABG Hemoglobin 8.6 L Oxyhemoglobin Sodium Potassium Chloride Carbon Dioxide BUN Creatinine Glucose POC Glucose 202 H Uric Acid Calcium Phosphorus Magnesium Iron TIBC AST ALT Total Creatine Kinase CK-MB (CK-2) Troponin T NT-Pro-B Natriuret Pep Total Protein Albumin Triglycerides HDL Cholesterol Folate Urine WBC (Auto) Urine Creatinine Urine Total Protein Vancomycin Trough 06/21/19 06/21/19 06/21/19 05:20 12:30 18:18 WBC RBC Hgb Hct MCV MCH MCHC RDW Plt Count Lymph % (Auto) [place] % (Auto) Eos % (Auto) Lymph # [place] # Eos # Seg Neutrophils % Seg Neuts % (Manual) Lymphocytes % (Manual) Monocytes % (Manual) Eosinophils % (Manual) Nucleated RBC % Seg Neutrophils # Seg Neutrophils # Man Lymphocytes # (Manual) Monocytes # (Manual) Eosinophils # (Manual) PT INR APTT Fibrinogen POC ABG pH ABG pH POC ABG pCO2 POC ABG pO2 ABG pO2 ABG HCO3 ABG O2 Saturation ABG Base Excess ABG Hemoglobin Oxyhemoglobin Sodium Potassium Chloride 97.7 L Carbon Dioxide BUN 69 H Creatinine Glucose 239 H POC Glucose 176 H 187 H Uric Acid Calcium Phosphorus Magnesium 2.40 H Iron TIBC AST ALT Total Creatine Kinase CK-MB (CK-2) Troponin T NT-Pro-B Natriuret Pep Total Protein Albumin Triglycerides HDL Cholesterol Folate Urine WBC (Auto) Urine Creatinine Urine Total Protein Vancomycin Trough 06/22/19 06/22/19 06/22/19 04:11 05:30 05:30 WBC 12.6 H RBC 3.10 L Hgb 8.7 L Hct 27.0 L MCV MCH MCHC RDW 19.8 H Plt Count Lymph % (Auto) [place] % (Auto) Eos % (Auto) Lymph # [place] # Eos # Seg Neutrophils % Seg Neuts % (Manual) Lymphocytes % (Manual) Monocytes % (Manual) 10.0 H Eosinophils % (Manual) Nucleated RBC % Seg Neutrophils # Seg Neutrophils # Man 8.7 H Lymphocytes # (Manual) Monocytes # (Manual) 1.3 H Eosinophils # (Manual) PT INR APTT Fibrinogen POC ABG pH ABG pH POC ABG pCO2 POC ABG pO2 ABG pO2 ABG HCO3 27.7 H ABG O2 Saturation ABG Base Excess 3.3 H ABG Hemoglobin 8.5 L Oxyhemoglobin 94.9 L Sodium Potassium Chloride Carbon Dioxide BUN 66 H Creatinine Glucose 103 H POC Glucose Uric Acid Calcium Phosphorus Magnesium Iron TIBC AST ALT Total Creatine Kinase CK-MB (CK-2) Troponin T NT-Pro-B Natriuret Pep Total Protein Albumin Triglycerides HDL Cholesterol Folate Urine WBC (Auto) Urine Creatinine Urine Total Protein Vancomycin Trough 06/22/19 06/22/19 06/23/19 17:43 23:25 02:00 WBC RBC Hgb Hct MCV MCH MCHC RDW Plt Count Lymph % (Auto) [place] % (Auto) Eos % (Auto) Lymph # [place] # Eos # Seg Neutrophils % Seg Neuts % (Manual) Lymphocytes % (Manual) Monocytes % (Manual) Eosinophils % (Manual) Nucleated RBC % Seg Neutrophils # Seg Neutrophils # Man Lymphocytes # (Manual) Monocytes # (Manual) Eosinophils # (Manual) PT INR APTT Fibrinogen POC ABG pH ABG pH 7.469 H POC ABG pCO2 POC ABG pO2 ABG pO2 58.7 L ABG HCO3 28.0 H ABG O2 Saturation 94.6 L ABG Base Excess 4.0 H ABG Hemoglobin 7.1 L Oxyhemoglobin 92.2 L Sodium Potassium Chloride Carbon Dioxide BUN Creatinine Glucose POC Glucose 143 H 106 H Uric Acid Calcium Phosphorus Magnesium Iron TIBC AST ALT Total Creatine Kinase CK-MB (CK-2) Troponin T NT-Pro-B Natriuret Pep Total Protein Albumin Triglycerides HDL Cholesterol Folate Urine WBC (Auto) Urine Creatinine Urine Total Protein Vancomycin Trough 06/23/19 06/23/19 06/23/19 05:24 05:24 11:43 WBC 12.6 H RBC 2.96 L Hgb 8.3 L Hct 25.5 L MCV MCH MCHC RDW 20.2 H Plt Count Lymph % (Auto) [place] % (Auto) Eos % (Auto) Lymph # [place] # Eos # Seg Neutrophils % Seg Neuts % (Manual) Lymphocytes % (Manual) 12.0 L Monocytes % (Manual) 11.0 H Eosinophils % (Manual) 6.0 H Nucleated RBC % Seg Neutrophils # Seg Neutrophils # Man 8.8 H Lymphocytes # (Manual) Monocytes # (Manual) 1.4 H Eosinophils # (Manual) 0.8 H PT INR APTT Fibrinogen POC ABG pH ABG pH POC ABG pCO2 POC ABG pO2 ABG pO2 ABG HCO3 ABG O2 Saturation ABG Base Excess ABG Hemoglobin Oxyhemoglobin Sodium 146 H Potassium 3.5 L Chloride Carbon Dioxide BUN 48 H Creatinine Glucose 123 H POC Glucose 120 H Uric Acid Calcium Phosphorus Magnesium Iron TIBC AST ALT Total Creatine Kinase CK-MB (CK-2) Troponin T NT-Pro-B Natriuret Pep Total Protein Albumin Triglycerides HDL Cholesterol Folate Urine WBC (Auto) Urine Creatinine Urine Total Protein Vancomycin Trough 06/23/19 06/24/19 06/24/19 17:39 06:53 06:53 WBC 12.3 H RBC 2.87 L Hgb 8.0 L Hct 24.9 L MCV MCH MCHC RDW 20.5 H Plt Count Lymph % (Auto) [place] % (Auto) 8.8 H Eos % (Auto) 4.4 H Lymph # [place] # 1.1 H Eos # 0.5 H Seg Neutrophils % Seg Neuts % (Manual) Lymphocytes % (Manual) Monocytes % (Manual) Eosinophils % (Manual) Nucleated RBC % Seg Neutrophils # Seg Neutrophils # Man Lymphocytes # (Manual) Monocytes # (Manual) Eosinophils # (Manual) PT INR APTT Fibrinogen POC ABG pH ABG pH POC ABG pCO2 POC ABG pO2 ABG pO2 ABG HCO3 ABG O2 Saturation ABG Base Excess ABG Hemoglobin Oxyhemoglobin Sodium Potassium Chloride 107.1 H Carbon Dioxide 21 L BUN 29 H Creatinine 0.6 L Glucose 117 H POC Glucose 111 H Uric Acid Calcium Phosphorus Magnesium 1.60 L Iron TIBC AST ALT Total Creatine Kinase CK-MB (CK-2) Troponin T NT-Pro-B Natriuret Pep Total Protein Albumin Triglycerides HDL Cholesterol Folate Urine WBC (Auto) Urine Creatinine Urine Total Protein Vancomycin Trough 06/24/19 06/24/19 06/24/19 12:12 18:01 23:20 WBC RBC Hgb Hct MCV MCH MCHC RDW Plt Count Lymph % (Auto) [place] % (Auto) Eos % (Auto) Lymph # [place] # Eos # Seg Neutrophils % Seg Neuts % (Manual) Lymphocytes % (Manual) Monocytes % (Manual) Eosinophils % (Manual) Nucleated RBC % Seg Neutrophils # Seg Neutrophils # Man Lymphocytes # (Manual) Monocytes # (Manual) Eosinophils # (Manual) PT INR APTT Fibrinogen POC ABG pH ABG pH POC ABG pCO2 POC ABG pO2 ABG pO2 ABG HCO3 ABG O2 Saturation ABG Base Excess ABG Hemoglobin Oxyhemoglobin Sodium Potassium Chloride Carbon Dioxide BUN Creatinine Glucose POC Glucose 158 H 133 H 106 H Uric Acid Calcium Phosphorus Magnesium Iron TIBC AST ALT Total Creatine Kinase CK-MB (CK-2) Troponin T NT-Pro-B Natriuret Pep Total Protein Albumin Triglycerides HDL Cholesterol Folate Urine WBC (Auto) Urine Creatinine Urine Total Protein Vancomycin Trough 06/25/19 06/25/19 06/25/19 04:46 04:46 05:36 WBC 12.3 H RBC 2.98 L Hgb 8.3 L Hct 26.4 L MCV MCH MCHC 31 L RDW 20.1 H Plt Count Lymph % (Auto) [place] % (Auto) Eos % (Auto) Lymph # [place] # Eos # Seg Neutrophils % Seg Neuts % (Manual) Lymphocytes % (Manual) Monocytes % (Manual) 10.0 H Eosinophils % (Manual) Nucleated RBC % Seg Neutrophils # Seg Neutrophils # Man 8.1 H Lymphocytes # (Manual) Monocytes # (Manual) 1.2 H Eosinophils # (Manual) PT INR APTT Fibrinogen POC ABG pH ABG pH POC ABG pCO2 POC ABG pO2 ABG pO2 ABG HCO3 ABG O2 Saturation ABG Base Excess ABG Hemoglobin Oxyhemoglobin Sodium 148 H Potassium Chloride 108.0 H Carbon Dioxide BUN 21 H Creatinine 0.7 L Glucose 120 H POC Glucose 121 H Uric Acid Calcium Phosphorus Magnesium Iron TIBC AST ALT Total Creatine Kinase CK-MB (CK-2) Troponin T NT-Pro-B Natriuret Pep Total Protein Albumin Triglycerides HDL Cholesterol Folate Urine WBC (Auto) Urine Creatinine Urine Total Protein Vancomycin Trough 06/25/19 06/25/19 06/26/19 14:02 18:30 00:01 WBC RBC Hgb Hct MCV MCH MCHC RDW Plt Count Lymph % (Auto) [place] % (Auto) Eos % (Auto) Lymph # [place] # Eos # Seg Neutrophils % Seg Neuts % (Manual) Lymphocytes % (Manual) Monocytes % (Manual) Eosinophils % (Manual) Nucleated RBC % Seg Neutrophils # Seg Neutrophils # Man Lymphocytes # (Manual) Monocytes # (Manual) Eosinophils # (Manual) PT INR APTT Fibrinogen POC ABG pH ABG pH POC ABG pCO2 POC ABG pO2 ABG pO2 ABG HCO3 ABG O2 Saturation ABG Base Excess ABG Hemoglobin Oxyhemoglobin Sodium Potassium Chloride Carbon Dioxide BUN Creatinine Glucose POC Glucose 125 H 145 H 142 H Uric Acid Calcium Phosphorus Magnesium Iron TIBC AST ALT Total Creatine Kinase CK-MB (CK-2) Troponin T NT-Pro-B Natriuret Pep Total Protein Albumin Triglycerides HDL Cholesterol Folate Urine WBC (Auto) Urine Creatinine Urine Total Protein Vancomycin Trough 06/26/19 06/26/19 06/26/19 04:43 04:43 05:41 WBC RBC 3.02 L Hgb 8.6 L Hct 27.0 L MCV MCH MCHC RDW 20.4 H Plt Count Lymph % (Auto) [place] % (Auto) Eos % (Auto) Lymph # [place] # Eos # Seg Neutrophils % Seg Neuts % (Manual) Lymphocytes % (Manual) Monocytes % (Manual) 9.0 H Eosinophils % (Manual) Nucleated RBC % Seg Neutrophils # Seg Neutrophils # Man Lymphocytes # (Manual) Monocytes # (Manual) 1.0 H Eosinophils # (Manual) PT INR APTT Fibrinogen POC ABG pH ABG pH POC ABG pCO2 POC ABG pO2 ABG pO2 ABG HCO3 ABG O2 Saturation ABG Base Excess ABG Hemoglobin Oxyhemoglobin Sodium Potassium Chloride Carbon Dioxide BUN Creatinine 0.7 L Glucose 111 H POC Glucose 110 H Uric Acid Calcium Phosphorus Magnesium 1.60 L Iron TIBC AST ALT Total Creatine Kinase CK-MB (CK-2) Troponin T NT-Pro-B Natriuret Pep Total Protein Albumin Triglycerides HDL Cholesterol Folate Urine WBC (Auto) Urine Creatinine Urine Total Protein Vancomycin Trough 06/26/19 06/26/19 11:55 18:07 WBC RBC Hgb Hct MCV MCH MCHC RDW Plt Count Lymph % (Auto) [place] % (Auto) Eos % (Auto) Lymph # [place] # Eos # Seg Neutrophils % Seg Neuts % (Manual) Lymphocytes % (Manual) Monocytes % (Manual) Eosinophils % (Manual) Nucleated RBC % Seg Neutrophils # Seg Neutrophils # Man Lymphocytes # (Manual) Monocytes # (Manual) Eosinophils # (Manual) PT INR APTT Fibrinogen POC ABG pH ABG pH POC ABG pCO2 POC ABG pO2 ABG pO2 ABG HCO3 ABG O2 Saturation ABG Base Excess ABG Hemoglobin Oxyhemoglobin Sodium Potassium Chloride Carbon Dioxide BUN Creatinine Glucose POC Glucose 159 H 107 H Uric Acid Calcium Phosphorus Magnesium Iron TIBC AST ALT Total Creatine Kinase CK-MB (CK-2) Troponin T NT-Pro-B Natriuret Pep Total Protein Albumin Triglycerides HDL Cholesterol Folate Urine WBC (Auto) Urine Creatinine Urine Total Protein Vancomycin Trough
[2019-06-27] MEDS: fentaNYL 100 MCG/2 ML INJ IV PRN (12:10)
[2019-06-28] MEDS: INSULIN LISPRO 100 UNIT/ML SUB-Q SCH ×2 (06:00)
[2019-06-28] MEDS: predniSONE 10 MG TAB PO SCH (10:07)
[2019-06-28] MEDS: FOLIC ACID/VIT B COMP W-C 1 MG (RENAL CAPS) PO SCH ×2 (10:07→10:14)
[2019-06-28] MEDS: amLODIPine 10 MG TAB PO SCH (10:07)
[2019-06-28] MEDS: hydroCHLOROthiazide 25 MG TAB PO SCH (10:07)
[2019-06-28] MEDS: POTASSIUM CHLORIDE 20 MEQ PACKET FEEDTUBE SCH (10:07)
[2019-06-28] MEDS: APIXABAN 2.5 MG TAB PO SCH ×2 (10:08→22:43)
[2019-06-28] MEDS: FAMOTIDINE 20 MG TAB PO SCH ×2 (10:08→22:43)
[2019-06-28] MEDS: FERROUS SULFATE 308 MG (62mg Elemental Iron) / 7 ML ELIXIR PO SCH (10:08)
--- NOTE | 2019-06-28 19:36 | Progress Note ---
Assessment and Plan Assessment and plan: 34-year-old man with morbid obesity was brought to the hospital for shortness of breath and insomnia. He was found to have severe hypoxia and bradycardia who then became pulseless, he was cyanotic and he was intubated after receiving CPR with 2 rounds of epinephrine. Patient was intubated, extubated and reintubated, unable to wean vent dependent, underwent trach and PEG on 06/22/2019 --Acute respiratory failure; vent dependent/status post trach and PEG Continue ventilatory support, trach care, nebulizers Pulmonary critical following --Persistent fevers; leukocytosis , resolved Internal jugular tunneled hemodialysis catheter removed ID Following, monitor off antibiotics --Obesity hypoventilation syndrome Continue ventilatory support, nebulizers Pulmonary critical following --Status post cardiac arrest mild anoxic brain injury patient's mentation is improved ., EEG was negative for seizures and neurology consult appreciated. --Severe malnutrition Dysphasia; dw with his mom, she is agreeable to PEG tube, GS consulted Dietitian input appreciated, continue tube feeds --Anemia of chronic disease : Closely monitor H&H and transfuse as needed. 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 Patient is on Eliquis --Acute kidney injury due to ATN : Requiring dialysis Resolved, nephrology following. --Hypernatremia: Trending down, closely monitor --Hypokalemia hypomagnesemia: Replace as needed Per protocol monitor electrolytes --Morbid obesity; will need weight loss program upon discharge --DVT prophylaxis; scd for now Plan of care discussed with the patient and his nurse Disposition ;LTAC placement Multiple social and financial/insurance issues CCT 32 minutes History Interval history: Patient seen and examined at the bedside in ICU Medical chart, medications reviewed Patient is alert and awake tracheostomy on vent Vital signs noted Hospitalist Physical - Constitutional Vitals: Temp Pulse Resp BP Pulse Ox 98.3 F 84 24 154/77 97 06/28/19 12:58 06/28/19 12:57 06/28/19 16:11 06/28/19 12:58 06/28/19 17:49 General appearance: Present: mild distress, well-nourished, obese (morbidly obese), other (tracheostomy on vent) - EENT Eyes: Present: PERRL, EOM intact - Neck Neck: Present: supple, normal ROM - Respiratory Respiratory effort: normal Respiratory: bilateral: diminished, rhonchi, negative: rales, wheezing - Cardiovascular Rhythm: regular Heart Sounds: Present: S1 & S2 - Extremities Extremities: no ischemia, No edema - Abdominal General gastrointestinal: soft, non-tender, non-distended, normal bowel sounds - Integumentary Integumentary: Present: clear, warm - Psychiatric Psychiatric: appropriate mood/affect, cooperative - Neurologic Neurologic: CNII-XII intact, moves all extremities Results - Labs CBC & Chem 7: 06/26/19 04:43 06/26/19 04:43 Labs: Laboratory Last Values WBC 11.0 K/mm3 (4.5-11.0) 06/26/19 04:43 RBC 3.02 M/mm3 (3.65-5.03) L 06/26/19 04:43 Hgb 8.6 gm/dl (11.8-15.2) L 06/26/19 04:43 Hct 27.0 % (35.5-45.6) L 06/26/19 04:43 MCV 89 fl (84-94) 06/26/19 04:43 MCH 28 pg (28-32) 06/26/19 04:43 MCHC 32 % (32-34) 06/26/19 04:43 RDW 20.4 % (13.2-15.2) H 06/26/19 04:43 Plt Count 232 K/mm3 (140-440) 06/26/19 04:43 Lymph % (Auto) 23.8 % (13.4-35.0) 06/24/19 06:53 [place] % (Auto) 8.8 % (0.0-7.3) H 06/24/19 06:53 Eos % (Auto) 4.4 % (0.0-4.3) H 06/24/19 06:53 Baso % (Auto) 0.9 % (0.0-1.8) 06/24/19 06:53 Lymph # 2.9 K/mm3 (1.2-5.4) 06/24/19 06:53 Hudson # 1.1 K/mm3 (0.0-0.8) H 06/24/19 06:53 Eos # 0.5 K/mm3 (0.0-0.4) H 06/24/19 06:53 Baso # 0.1 K/mm3 (0.0-0.1) 06/24/19 06:53 Add Manual Diff Complete 06/26/19 04:43 Total Counted 100 06/26/19 04:43 Seg Neutrophils % 62.1 % (40.0-70.0) 06/24/19 06:53 Seg Neuts % (Manual) 60.0 % (40.0-70.0) 06/26/19 04:43 Band Neutrophils % 4.0 % 06/26/19 04:43 Lymphocytes % (Manual) 25.0 % (13.4-35.0) 06/26/19 04:43 Reactive Lymphs % (Man) 0 % 06/26/19 04:43 Monocytes % (Manual) 9.0 % (0.0-7.3) H 06/26/19 04:43 Eosinophils % (Manual) 2.0 % (0.0-4.3) 06/26/19 04:43 Basophils % (Manual) 0 % (0.0-1.8) 06/26/19 04:43 Metamyelocytes % 0 % 06/26/19 04:43 Myelocytes % 0 % 06/26/19 04:43 Promyelocytes % 0 % 06/26/19 04:43 Blast Cells % 0 % 06/26/19 04:43 Nucleated RBC % Not Reportable 06/26/19 04:43 Seg Neutrophils # 7.7 K/mm3 (1.8-7.7) 06/24/19 06:53 Seg Neutrophils # Man 6.6 K/mm3 (1.8-7.7) 06/26/19 04:43 Band Neutrophils # 0.4 K/mm3 06/26/19 04:43 Lymphocytes # (Manual) 2.8 K/mm3 (1.2-5.4) 06/26/19 04:43 Abs React Lymphs (Man) 0.0 K/mm3 06/26/19 04:43 Monocytes # (Manual) 1.0 K/mm3 (0.0-0.8) H 06/26/19 04:43 Eosinophils # (Manual) 0.2 K/mm3 (0.0-0.4) 06/26/19 04:43 Basophils # (Manual) 0.0 K/mm3 (0.0-0.1) 06/26/19 04:43 Metamyelocytes # 0.0 K/mm3 06/26/19 04:43 Myelocytes # 0.0 K/mm3 06/26/19 04:43 Promyelocytes # 0.0 K/mm3 06/26/19 04:43 Blast Cells # 0.0 K/mm3 06/26/19 04:43 WBC Morphology Not Reportable 06/26/19 04:43 Hypersegmented Neuts Not Reportable 06/26/19 04:43 Hyposegmented Neuts Not Reportable 06/26/19 04:43 Hypogranular Neuts Not Reportable 06/26/19 04:43 Smudge Cells Not Reportable 06/26/19 04:43 Toxic Granulation Not Reportable 06/26/19 04:43 Toxic Vacuolation Not Reportable 06/26/19 04:43 Dohle Bodies Not Reportable 06/26/19 04:43 Pelger-Huet Anomaly Not Reportable 06/26/19 04:43 Renea Rods Not Reportable 06/26/19 04:43 Platelet Estimate Consistent w auto 06/26/19 04:43 Clumped Platelets Not Reportable 06/26/19 04:43 Plt Clumps, EDTA Not Reportable 06/26/19 04:43 Large Platelets Not Reportable 06/26/19 04:43 Giant Platelets Not Reportable 06/26/19 04:43 Platelet Satelliting Not Reportable 06/26/19 04:43 Plt Morphology Comment Not Reportable 06/26/19 04:43 RBC Morphology Not Reportable 06/26/19 04:43 Dimorphic RBCs Not Reportable 06/26/19 04:43 Polychromasia Not Reportable 06/26/19 04:43 Hypochromasia Not Reportable 06/26/19 04:43 Poikilocytosis Not Reportable 06/26/19 04:43 Anisocytosis 1+ 06/26/19 04:43 Microcytosis Not Reportable 06/26/19 04:43 Macrocytosis Not Reportable 06/26/19 04:43 Spherocytes Not Reportable 06/26/19 04:43 Pappenheimer Bodies Not Reportable 06/26/19 04:43 Sickle Cells Not Reportable 06/26/19 04:43 Target Cells Not Reportable 06/26/19 04:43 Tear Drop Cells Not Reportable 06/26/19 04:43 Ovalocytes Not Reportable 06/26/19 04:43 Stomatocytes 3+ 06/23/19 05:24 Helmet Cells Not Reportable 06/26/19 04:43 [place]-Blackhawk Bodies Not Reportable 06/26/19 04:43 [place] Rings Not Reportable 06/26/19 04:43 Bud Cells Not Reportable 06/26/19 04:43 Bite Cells Not Reportable 06/26/19 04:43 Crenated Cell Not Reportable 06/26/19 04:43 Elliptocytes Rare 06/26/19 04:43 Acanthocytes (Spur) Not Reportable 06/26/19 04:43 Rouleaux Not Reportable 06/26/19 04:43 Hemoglobin C Crystals Not Reportable 06/26/19 04:43 Schistocytes Not Reportable 06/26/19 04:43 Malaria parasites Not Reportable 06/26/19 04:43 Syed Bodies Not Reportable 06/26/19 04:43 Hem Pathologist Commnt No 06/26/19 04:43 PT 15.4 Sec. (12.2-14.9) H 05/01/19 Unknown INR 1.23 (0.87-1.13) H 05/01/19 Unknown APTT 22.7 Sec. (24.2-36.6) L 05/01/19 Unknown Fibrinogen 194 mg/dl (211-480) L 06/17/19 12:45 Heparin Anti-Xa, Unfract Negative (Negative) 06/17/19 12:45 POC ABG pH 7.462 (7.35-7.45) H 06/05/19 03:52 ABG pH 7.469 pH Units (7.350-7.450) H 06/23/19 02:00 POC ABG pCO2 39.8 (35-45) 06/05/19 03:52 ABG pCO2 39.4 mm Hg 06/23/19 02:00 POC ABG pO2 86 (80-105) 06/05/19 03:52 ABG pO2 58.7 mm Hg (80.0-90.0) L 06/23/19 02:00 POC ABG HCO3 28.4 (22-26 mml/L) 06/05/19 03:52 ABG HCO3 28.0 mmol/L (20.0-26.0) H 06/23/19 02:00 POC ABG Total CO2 30 (23-27mmol/L) 06/05/19 03:52 POC ABG O2 Sat 97 06/05/19 03:52 ABG O2 Saturation 94.6 % (95.0-99.0) L 06/23/19 02:00 ABG O2 Content 9.2 (0.0-44) 06/23/19 02:00 POC ABG Base Excess 5 ((-2) - (+3)mmol/L) 06/05/19 03:52 ABG Base Excess 4.0 mmol/L (-2.0-3.0) H 06/23/19 02:00 ABG Hemoglobin 7.1 gm/dl (14.0-18.0) L 06/23/19 02:00 ABG Carboxyhemoglobin 2.0 % (0.0-5.0) 06/23/19 02:00 ABG Methemoglobin 0.5 % (0.0-1.5) 06/23/19 02:00 Oxyhemoglobin 92.2 % (95.0-99.0) L 06/23/19 02:00 FiO2 30 % 06/23/19 02:00 Sodium 141 mmol/L (137-145) 06/26/19 04:43 Potassium 3.8 mmol/L (3.6-5.0) 06/26/19 04:43 Chloride 103.2 mmol/L (98-107) 06/26/19 04:43 Carbon Dioxide 23 mmol/L (22-30) 06/26/19 04:43 Anion Gap 19 mmol/L 06/26/19 04:43 BUN 19 mg/dL (9-20) 06/26/19 04:43 Creatinine 0.7 mg/dL (0.8-1.5) L 06/26/19 04:43 Estimated GFR > 60 ml/min 06/26/19 04:43 BUN/Creatinine Ratio 27 % 06/26/19 04:43 Glucose 111 mg/dL (75-100) H 06/26/19 04:43 POC Glucose 99 (70-105) 06/28/19 18:18 Osmolality 327 Mosm/kg 05/07/19 13:45 Uric Acid 18.0 mg/dL (3.5-7.6) H 05/07/19 13:45 Calcium 9.2 mg/dL (8.4-10.2) 06/26/19 04:43 Phosphorus 3.70 mg/dL (2.5-4.5) 06/10/19 05:45 Magnesium 1.60 mg/dL (1.7-2.3) L 06/26/19 04:43 Iron 45 ug/dL (49-181) L 06/20/19 09:12 TIBC 110 mcg/dL (250-450) L 06/20/19 09:12 Ferritin 315.2 ng/mL (13.0-400.0) 06/20/19 09:12 Total Bilirubin 0.50 mg/dL (0.1-1.2) 06/08/19 04:20 AST 23 units/L (5-40) 06/08/19 04:20 ALT 66 units/L (7-56) H 06/08/19 04:20 Alkaline Phosphatase 59 units/L (35-129) 06/08/19 04:20 Total Creatine Kinase 131 units/L (55-170) 05/02/19 04:41 CK-MB (CK-2) 5.2 ng/mL (0.0-4.0) H 05/02/19 04:41 CK-MB (CK-2) Rel Index 3.9 (0-4) 05/02/19 04:41 Troponin T 0.067 ng/mL (0.00-0.029) H D 05/02/19 04:41 NT-Pro-B Natriuret Pep 6831 pg/mL (0-450) H 05/01/19 Unknown Total Protein 5.5 g/dL (6.3-8.2) L 06/08/19 04:20 Albumin 2.9 g/dL (3.9-5) L 06/08/19 04:20 Albumin/Globulin Ratio 1.1 % 06/08/19 04:20 Triglycerides 210 mg/dL (2-149) H 06/19/19 04:30 Cholesterol 173 mg/dL (50-199) 05/02/19 00:06 LDL Cholesterol Direct 126 mg/dL (50-130) 05/02/19 00:06 HDL Cholesterol 18 mg/dL (40-59) L 05/02/19 00:06 Cholesterol/HDL Ratio 9.61 % 05/02/19 00:06 Serotonin Release Assay See scanned results 06/17/19 12:45 Vitamin B12 353.0 pg/mL (211-911) 06/20/19 09:12 Folate 7.01 ng/mL (7.3-26.0) L 06/20/19 09:12 Procalcitonin 0.05 ng/mL (<0.15) 06/17/19 12:45 Urine Color Yellow (Yellow) 06/17/19 12:45 Urine Turbidity Slightly-cloudy (Clear) 06/17/19 12:45 Urine pH 5.0 (5.0-7.0) 06/17/19 12:45 Ur Specific Carpenter 1.013 (1.003-1.030) 06/17/19 12:45 Urine Protein <15 mg/dl mg/dL (Negative) 06/17/19 12:45 Urine Glucose (UA) Neg mg/dL (Negative) 06/17/19 12:45 Urine Ketones Neg mg/dL (Negative) 06/17/19 12:45 Urine Blood Sm (Negative) 06/17/19 12:45 Urine Nitrite Neg (Negative) 06/17/19 12:45 Urine Bilirubin Neg (Negative) 06/17/19 12:45 Urine Urobilinogen < 2.0 mg/dL (<2.0) 06/17/19 12:45 Ur Leukocyte Esterase Neg (Negative) 06/17/19 12:45 Urine WBC (Auto) 2.0 /HPF (0.0-6.0) 06/17/19 12:45 Urine RBC (Auto) 2.0 /HPF (0.0-6.0) 06/17/19 12:45 U Epithel Cells (Auto) < 1.0 /HPF (0-13.0) 06/17/19 12:45 Urine Bacteria (Auto) 1+ /HPF (Negative) 05/20/19 12:00 Uric Acid Crystals 3+ 05/03/19 10:55 Urine Mucus Few /HPF 06/17/19 12:45 Urine Yeast (Budding) 3+ /HPF 05/20/19 12:00 Urine Creatinine 292.8 mg/dL (0.1-20.0) H 05/07/19 22:40 Urine Sodium 11 mmol/L 05/07/19 22:40 Urine Total Protein 269 mg/dL (5-11.8) H 05/07/19 22:40 Vancomycin Trough 20.5 ug/mL (5.0-20.0) H 05/15/19 09:00 Random Vancomycin 11.5 ug/mL (0-40.0) 05/27/19 06:00 AMNA Screen Negative (Negative) 05/07/19 13:45 Heparin-induced Plt Ab Negative (Negative) 06/17/19 12:45 UF Heparin High Dose 13 % Release 06/17/19 12:45 YUNG UFH Low Dose 0.1 8 % Release 06/17/19 12:45 YUNG UFH Low Dose 0.5 7 % Release 06/17/19 12:45 Hepatitis A IgM Ab Non-reactive (NonReactive) 05/07/19 13:45 Hep Bs Antigen Non-reactive (Negative) 05/07/19 13:45 Hep B Core IgM Ab Non-reactive (NonReactive) 05/07/19 13:45 Hepatitis C Antibody Non-reactive (NonReactive) 05/07/19 13:45 Influenza A (Rapid) Negative (Negative) 06/17/19 11:35 Influenza B (Rapid) Negative (Negative) 06/17/19 11:35 Active Medications - Current Medications Current Medications: Generic Name Dose Route Start Last Admin Trade Name Freq PRN Reason Stop Dose Admin Amlodipine Besylate 10 mg 06/25/19 11:00 06/28/19 10:07 Amlodipine PO 10 mg DAILY VICKEY Administration Lipase/Protease/Amylase 1 each 05/14/19 15:01 Pancreaze 10,500 Unit FEEDTUBE PRN PRN For Clogged Feeding Tube Apixaban 2.5 mg 06/23/19 22:00 06/28/19 10:08 Eliquis PO 2.5 mg Q12HR VICKEY Administration Protocol Dextrose 50 gm 05/01/19 20:24 D50w (25gm) Vial IV Q30MIN PRN Hypoglycemia Protocol Famotidine 20 mg 06/17/19 10:00 06/28/19 10:08 Pepcid PO 20 mg BID VICKEY Administration Fentanyl 25 mcg 06/24/19 17:00 06/27/19 12:10 Sublimaze IV 25 mcg Q2HR PRN Administration Pain, Moderate (4-6) Ferrous Sulfate 308 mg 06/18/19 12:00 06/28/19 10:08 Ferrous Sulfate PO 308 mg QDAY VICKEY Administration Hydrochlorothiazide 25 mg 06/26/19 11:00 06/28/19 10:07 Hctz PO 25 mg QDAY VICKEY Administration Hydrophilic Ointment 1 applic 06/16/19 17:34 Vaseline Lip Therapy TP Q2HR PRN Dry Lips Insulin Human Lispro 0 unit 06/01/19 14:00 06/28/19 06:00 Humalog SUB-Q Not Given Q6HR [facility] Protocol Labetalol HCl 10 mg 06/11/19 22:48 06/27/19 18:00 Labetalol IV 10 mg Q4H PRN Administration BP >170/105; hold for HR <60 Labetalol HCl 200 mg 06/28/19 10:00 06/28/19 10:08 Labetalol PO 200 mg Q8HR VICKEY Administration Multi-Ingred Cream/Lotion/Oil/Oint 1 applic 06/16/19 18:00 Artificial Tears Ophth Oint OU Q4HR PRN Dry Eye(s) Multivit/Ca Carb/B Cmplx/FA/Prenat 1 cap 06/23/19 10:00 06/28/19 10:14 Renal Caps PO Not Given QDAY VICKEY Potassium Chloride 40 meq 06/19/19 10:00 06/28/19 10:07 Potassium Chloride FEEDTUBE 40 meq QDAY VICKEY Administration Prednisone 10 mg 06/27/19 10:00 06/28/19 10:07 Deltasone PO 10 mg QDAY VICKEY Administration Scopolamine 1 each 06/27/19 09:00 06/27/19 09:56 Transderm-Scop TD 1 each Q3D VICKEY Administration Simple Syrup 15 ml 05/14/19 15:01 Simple Syrup FEEDTUBE PRN PRN Hypoglycemia Simple Syrup 30 ml 05/14/19 15:01 Simple Syrup FEEDTUBE PRN PRN Hypoglycemia Sodium Bicarbonate 325 mg 05/14/19 15:01 Sodium Bicarbonate FEEDTUBE PRN PRN For Clogged Feeding Tube Nutrition/Malnutrition Assess - Dietary Evaluation Nutrition/Malnutrition Findings: Nutrition Notes Start: 05/04/19 12:54 Freq: Status: Active Protocol: Document 06/28/19 09:24 LP (Rec: 06/28/19 09:29 LP [id number]) Nutrition Notes Initial or Follow up Reassessment Current Diagnosis Acute Kidney Injury,Sepsis, Respiratory Failure Other Pertinent Diagnosis HD Current Diet Nepro 1.8 at 50 ml/hr Labs/Tests 06/26 Na 141 Pertinent Medications Reviewed Height 6 ft 4 in Weight 257.2 kg [place] Body Weight (kg) 91.81 BMI 69.0 Weight Status Morbidly Obese Subjective/Other Information Pt tolerating TF at goal rate. Percent of energy/protein needs met: 100%/42% Burn Absent Trauma Absent GI Symptoms None Current % PO Negligible Minimum of two criteria No Fluid Accumulation Moderate to Severe (severe) #1 Nutrition Diagnosis Inadequate oral intake Diagnosis Progress(for reassessment Continues documentation) Is patient on ventilator? Yes Is Patient Ambulatory and/or Out of Bed No REE-([facility]-confined to bed) 4342.284 Kcal/Kg value to use for calculation 8 Approximate Energy Requirements Using 8 kcal/Kg Calculation Used for Recommendations Kcal/kg Additional Notes PRO needs: up to 229g (up to 2 .5g/kg IBW) Fluid needs: 1 ml/kcal Nutrition Intervention Change Diet Order: Continue TF Nutrition Support: Nepro 1.8 at 50 ml/hr Flush 400ml q4h for hypernatremia. and 250ml q4h once resolved Kcal 2,160 Protein (gm) 97 Fluid (mL) 872 Goal #1 TF tolerance Goal #2 Meet at least 75% kcal/ and 40 % of PRO needs via TF Anticipated Discharge Needs: Unable to determine at this time Follow-Up By: 07/02/19 Additional Comments Follow for stable TF
[2019-06-29] MEDS: INSULIN LISPRO 100 UNIT/ML SUB-Q SCH ×4 (00:55→18:29)
[2019-06-29] MEDS: hydroCHLOROthiazide 25 MG TAB PO SCH (10:40)
[2019-06-29] MEDS: amLODIPine 10 MG TAB PO SCH (10:40)
[2019-06-29] MEDS: FAMOTIDINE 20 MG TAB PO SCH ×2 (10:40→23:03)
[2019-06-29] MEDS: FERROUS SULFATE 308 MG (62mg Elemental Iron) / 7 ML ELIXIR PO SCH (10:40)
[2019-06-29] MEDS: predniSONE 10 MG TAB PO SCH (10:40)
[2019-06-29] MEDS: POTASSIUM CHLORIDE 20 MEQ PACKET FEEDTUBE SCH (10:41)
[2019-06-29] MEDS: FOLIC ACID/VIT B COMP W-C 1 MG (RENAL CAPS) PO SCH (10:41)
--- NOTE | 2019-06-29 12:28 | Progress Note ---
Assessment and Plan 34 y/o male with acute hypoxic, hypercapnic respiratory failure now with trach and uncontrolled hypertension. 06/29/2019: Continue current care. PT/OT. Work on discharge planning. Will drop steroids to 5 daily. 06/26/2019: Will discontinue vent from room. patient was placed on vent last night. Not sure why. Will place orders for continued T-piece. Appears he was doing well with no issues. If tolerates being off vent tonight, transition to step down tomorrow. Increase HCTZ to 25 06/25/2019: Continue T-piece today as tolerated. Only rest of vent if needed. If not needed tonight then will discontinue vent from room. Spoke with IR, and they will remove Perm cath today as this could be a cause of fevers. Follow up cultures and ID recs. Will increase Free H2O to [id number]. Change steroids to 10 PO starting tomorrow morning. Added scheduled BP meds. 06/24/2019: Will attempt T-piece later today, if tolerates, then will continue trial indefinitely. PT/OT will need to start seeing him again. Will drop steroids to 10 daily (PO) starting Friday morning. 06/23/2019: PSV all day today and tomorrow. Will start T-piece either tomorrow or Friday. Tolerating Feeds 06/22/2019: Patient scheduled for OR today. Plan as outlined in Dr. Saez's note from yesterday. Discussed with patient again this am. Really appreciate surgery help with this and the promptness of procedure. Will follow up post-op later today. 06/21/2019: Unfortunately re-intubated last week. Will need Trach and Peg, but I doubt peg will happen secondary to his size. Will discuss with surgery and maybe they can just put in a number 6 XLT from the start. I think he will get off the vent relatively quickly and can start to eat. This trach will be indefinite. I have explained this to him. I have not seen his family at the bedside during this admission but Im told they come in the evenings. 06/12/2019: Started HCTZ 50 daily and Labetalol 100 TID. Will increase Labetalol to 200 TID. Already on Clonidine patch. Continue Minoxidil. Will start to wean drip. PT/OT. Feeds through NG now that this is in place. Will need speech re-evaluation. Will order NT suctioning at least [id number] for the next 24 hours. 06/11/2019: Bipap at night and PRN. Na levels are increasing. Agree with D5W. Unable to place DH, several nurses tried. Will ask speech to come by and reassess now that patient is more willing to cooperate. . Continue PT/OT, sat up on side of bed yesterday. Continue IMCU monitoring for now. As stated below, patient was intubated for 37 days. CCT 31 minutes. Subjective Date of service: 06/29/19 Principal diagnosis: anemia - LOw PLT Interval history: No acute events. Objective Vital Signs - 12hr 06/29/19 06/29/19 06/29/19 00:30 01:00 01:30 Temperature Pulse Rate 82 84 85 Pulse Rate [ From Monitor] Respiratory 23 25 H 19 Rate Blood Pressure 165/88 169/90 169/90 O2 Sat by Pulse 98 90 Oximetry O2 Sat by Pulse Oximetry [ Assessment] 06/29/19 06/29/19 06/29/19 02:00 02:30 03:00 Temperature Pulse Rate 92 H 86 82 Pulse Rate [ From Monitor] Respiratory 27 H 29 H 22 Rate Blood Pressure 157/92 157/92 167/93 O2 Sat by Pulse 97 98 100 Oximetry O2 Sat by Pulse Oximetry [ Assessment] 06/29/19 06/29/19 06/29/19 03:30 03:56 04:00 Temperature 99.2 F Pulse Rate 91 H 82 Pulse Rate [ 96 H From Monitor] Respiratory 27 H 14 Rate Blood Pressure 167/93 171/91 O2 Sat by Pulse 99 99 Oximetry O2 Sat by Pulse Oximetry [ Assessment] 06/29/19 06/29/19 06/29/19 04:24 04:30 05:00 Temperature Pulse Rate 92 H 80 96 H Pulse Rate [ From Monitor] Respiratory 13 Rate Blood Pressure 171/91 171/91 141/88 O2 Sat by Pulse 100 98 Oximetry O2 Sat by Pulse Oximetry [ Assessment] 06/29/19 06/29/19 06/29/19 05:20 05:30 06:00 Temperature Pulse Rate 83 83 Pulse Rate [ From Monitor] Respiratory 14 15 Rate Blood Pressure 141/88 151/102 O2 Sat by Pulse 97 Oximetry O2 Sat by Pulse 99 Oximetry [ Assessment] 06/29/19 06/29/19 06/29/19 06:04 06:30 07:00 Temperature Pulse Rate 81 92 H Pulse Rate [ From Monitor] Respiratory 17 Rate Blood Pressure 151/102 151/102 151/102 O2 Sat by Pulse 100 98 Oximetry O2 Sat by Pulse Oximetry [ Assessment] 06/29/19 06/29/19 06/29/19 08:00 09:00 09:01 Temperature 98.2 F Pulse Rate 95 H 90 Pulse Rate [ 95 H From Monitor] Respiratory 22 21 Rate Blood Pressure 132/73 132/73 O2 Sat by Pulse 96 99 96 Oximetry O2 Sat by Pulse Oximetry [ Assessment] 06/29/19 06/29/19 06/29/19 10:00 10:40 11:00 Temperature Pulse Rate 91 H 90 89 Pulse Rate [ From Monitor] Respiratory 17 20 Rate Blood Pressure 137/75 137/75 149/92 O2 Sat by Pulse 97 96 Oximetry O2 Sat by Pulse Oximetry [ Assessment] Constitutional: other (morbidly obese male, critically ill on vent) Eyes: non-icteric ENT: oropharynx moist Neck: other (extremely large in circumference) Effort: normal Ascultation: Bilateral: diminished breath sounds (secondary to body habitus), rhonchi Cardiovascular: regular rate and rhythm (no mrg) Gastrointestinal: normoactive bowel sounds, soft, non-tender, other (obese) Integumentary: other (L hand is wrapped) Extremities: no cyanosis, pink and warm, other (1+ generalized edema) Neurologic: normal mental status, non-focal exam Psychiatric: mood appropriate, affect normal CBC and BMP: 06/26/19 04:43 06/26/19 04:43 ABG, PT/INR, D-dimer: ABG POC ABG pH 7.462 (7.35-7.45) H 06/05/19 03:52 ABG pH 7.469 pH Units (7.350-7.450) H 06/23/19 02:00 POC ABG pCO2 39.8 (35-45) 06/05/19 03:52 ABG pCO2 39.4 mm Hg 06/23/19 02:00 POC ABG pO2 86 (80-105) 06/05/19 03:52 ABG pO2 58.7 mm Hg (80.0-90.0) L 06/23/19 02:00 POC ABG HCO3 28.4 (22-26 mml/L) 06/05/19 03:52 POC ABG Total CO2 30 (23-27mmol/L) 06/05/19 03:52 POC ABG O2 Sat 97 06/05/19 03:52 ABG O2 Saturation 94.6 % (95.0-99.0) L 06/23/19 02:00 PT/INR, D-dimer PT 15.4 Sec. (12.2-14.9) H 05/01/19 Unknown INR 1.23 (0.87-1.13) H 05/01/19 Unknown Abnormal lab findings: Abnormal Labs 05/01/19 05/01/19 05/01/19 17:50 19:26 22:36 WBC RBC Hgb Hct MCV MCH MCHC RDW Plt Count Lymph % (Auto) [place] % (Auto) Eos % (Auto) Lymph # [place] # Eos # Seg Neutrophils % Seg Neuts % (Manual) Lymphocytes % (Manual) Monocytes % (Manual) Eosinophils % (Manual) Nucleated RBC % Seg Neutrophils # Seg Neutrophils # Man Lymphocytes # (Manual) Monocytes # (Manual) Eosinophils # (Manual) PT INR APTT Fibrinogen POC ABG pH 7.272 L 7.331 L ABG pH POC ABG pCO2 52.8 H POC ABG pO2 ABG pO2 ABG HCO3 ABG O2 Saturation ABG Base Excess ABG Hemoglobin Oxyhemoglobin Sodium 136 L Potassium 6.5 H* Chloride 97.2 L Carbon Dioxide BUN 60 H Creatinine Glucose 113 H POC Glucose Uric Acid Calcium Phosphorus Magnesium 2.40 H Iron TIBC AST 139 H ALT 154 H Total Creatine Kinase CK-MB (CK-2) Troponin T NT-Pro-B Natriuret Pep Total Protein Albumin 3.8 L Triglycerides HDL Cholesterol Folate Urine WBC (Auto) Urine Creatinine Urine Total Protein Vancomycin Trough 05/01/19 05/01/19 05/01/19 Unknown Unknown Unknown WBC 16.1 H RBC Hgb Hct MCV MCH MCHC RDW 17.2 H Plt Count Lymph % (Auto) [place] % (Auto) 9.6 H Eos % (Auto) Lymph # [place] # 1.5 H Eos # Seg Neutrophils % 73.0 H Seg Neuts % (Manual) Lymphocytes % (Manual) Monocytes % (Manual) Eosinophils % (Manual) Nucleated RBC % Seg Neutrophils # 11.7 H Seg Neutrophils # Man Lymphocytes # (Manual) Monocytes # (Manual) Eosinophils # (Manual) PT 15.4 H INR 1.23 H APTT 22.7 L Fibrinogen POC ABG pH ABG pH POC ABG pCO2 POC ABG pO2 ABG pO2 ABG HCO3 ABG O2 Saturation ABG Base Excess ABG Hemoglobin Oxyhemoglobin Sodium Potassium Chloride Carbon Dioxide BUN Creatinine Glucose POC Glucose Uric Acid Calcium Phosphorus Magnesium Iron TIBC AST ALT Total Creatine Kinase CK-MB (CK-2) Troponin T NT-Pro-B Natriuret Pep 6831 H Total Protein Albumin Triglycerides HDL Cholesterol Folate Urine WBC (Auto) Urine Creatinine Urine Total Protein Vancomycin Trough 05/01/19 05/02/19 05/02/19 Unknown 00:06 00:06 WBC RBC Hgb Hct MCV MCH MCHC RDW Plt Count Lymph % (Auto) [place] % (Auto) Eos % (Auto) Lymph # [place] # Eos # Seg Neutrophils % Seg Neuts % (Manual) Lymphocytes % (Manual) Monocytes % (Manual) Eosinophils % (Manual) Nucleated RBC % Seg Neutrophils # Seg Neutrophils # Man Lymphocytes # (Manual) Monocytes # (Manual) Eosinophils # (Manual) PT INR APTT Fibrinogen POC ABG pH ABG pH POC ABG pCO2 POC ABG pO2 ABG pO2 ABG HCO3 ABG O2 Saturation ABG Base Excess ABG Hemoglobin Oxyhemoglobin Sodium Potassium Chloride Carbon Dioxide BUN Creatinine Glucose POC Glucose Uric Acid Calcium Phosphorus 4.90 H Magnesium Iron TIBC AST ALT Total Creatine Kinase 226 H CK-MB (CK-2) 5.7 H Troponin T 0.044 H NT-Pro-B Natriuret Pep Total Protein Albumin Triglycerides 182 H HDL Cholesterol 18 L Folate Urine WBC (Auto) Urine Creatinine Urine Total Protein Vancomycin Trough 05/02/19 05/02/19 05/02/19 02:08 04:40 04:41 WBC 17.6 H RBC Hgb Hct MCV MCH 27 L MCHC RDW 17.4 H Plt Count Lymph % (Auto) 10.2 L [place] % (Auto) 11.0 H Eos % (Auto) Lymph # [place] # 1.9 H Eos # Seg Neutrophils % 78.0 H Seg Neuts % (Manual) Lymphocytes % (Manual) Monocytes % (Manual) Eosinophils % (Manual) Nucleated RBC % Seg Neutrophils # 13.8 H Seg Neutrophils # Man Lymphocytes # (Manual) Monocytes # (Manual) Eosinophils # (Manual) PT INR APTT Fibrinogen POC ABG pH ABG pH POC ABG pCO2 46.8 H POC ABG pO2 63 L ABG pO2 ABG HCO3 ABG O2 Saturation ABG Base Excess ABG Hemoglobin Oxyhemoglobin Sodium Potassium Chloride 96.3 L Carbon Dioxide BUN 63 H Creatinine 1.7 H Glucose POC Glucose Uric Acid Calcium Phosphorus Magnesium Iron TIBC AST ALT Total Creatine Kinase CK-MB (CK-2) Troponin T NT-Pro-B Natriuret Pep Total Protein Albumin Triglycerides HDL Cholesterol Folate Urine WBC (Auto) Urine Creatinine Urine Total Protein Vancomycin Trough 05/02/19 05/02/19 05/02/19 04:41 04:41 16:05 WBC RBC Hgb Hct MCV MCH MCHC RDW Plt Count Lymph % (Auto) [place] % (Auto) Eos % (Auto) Lymph # [place] # Eos # Seg Neutrophils % Seg Neuts % (Manual) Lymphocytes % (Manual) Monocytes % (Manual) Eosinophils % (Manual) Nucleated RBC % Seg Neutrophils # Seg Neutrophils # Man Lymphocytes # (Manual) Monocytes # (Manual) Eosinophils # (Manual) PT INR APTT Fibrinogen POC ABG pH ABG pH POC ABG pCO2 POC ABG pO2 ABG pO2 66.6 L ABG HCO3 31.9 H ABG O2 Saturation 92.5 L ABG Base Excess 5.8 H ABG Hemoglobin 13.3 L Oxyhemoglobin 90.6 L Sodium Potassium Chloride 97.2 L Carbon Dioxide BUN 61 H Creatinine 1.8 H Glucose POC Glucose Uric Acid Calcium Phosphorus Magnesium Iron TIBC AST ALT Total Creatine Kinase CK-MB (CK-2) 5.2 H Troponin T 0.067 H D NT-Pro-B Natriuret Pep Total Protein Albumin Triglycerides HDL Cholesterol Folate Urine WBC (Auto) Urine Creatinine Urine Total Protein Vancomycin Trough 05/02/19 05/03/19 05/03/19 20:39 04:35 05:05 WBC 11.8 H RBC Hgb Hct MCV MCH 27 L MCHC 31 L RDW 17.2 H Plt Count Lymph % (Auto) [place] % (Auto) Eos % (Auto) Lymph # [place] # Eos # Seg Neutrophils % Seg Neuts % (Manual) Lymphocytes % (Manual) Monocytes % (Manual) Eosinophils % (Manual) Nucleated RBC % Seg Neutrophils # Seg Neutrophils # Man Lymphocytes # (Manual) Monocytes # (Manual) Eosinophils # (Manual) PT INR APTT Fibrinogen POC ABG pH ABG pH POC ABG pCO2 53.6 H 54.0 H POC ABG pO2 55 L 63 L ABG pO2 ABG HCO3 ABG O2 Saturation ABG Base Excess ABG Hemoglobin Oxyhemoglobin Sodium Potassium Chloride Carbon Dioxide BUN Creatinine Glucose POC Glucose Uric Acid Calcium Phosphorus Magnesium Iron TIBC AST ALT Total Creatine Kinase CK-MB (CK-2) Troponin T NT-Pro-B Natriuret Pep Total Protein Albumin Triglycerides HDL Cholesterol Folate Urine WBC (Auto) Urine Creatinine Urine Total Protein Vancomycin Trough 05/03/19 05/03/19 05/03/19 05:05 10:55 16:48 WBC RBC Hgb Hct MCV MCH MCHC RDW Plt Count Lymph % (Auto) [place] % (Auto) Eos % (Auto) Lymph # [place] # Eos # Seg Neutrophils % Seg Neuts % (Manual) Lymphocytes % (Manual) Monocytes % (Manual) Eosinophils % (Manual) Nucleated RBC % Seg Neutrophils # Seg Neutrophils # Man Lymphocytes # (Manual) Monocytes # (Manual) Eosinophils # (Manual) PT INR APTT Fibrinogen POC ABG pH 7.604 H ABG pH POC ABG pCO2 POC ABG pO2 58 L ABG pO2 ABG HCO3 ABG O2 Saturation ABG Base Excess ABG Hemoglobin Oxyhemoglobin Sodium Potassium Chloride Carbon Dioxide BUN 52 H Creatinine 1.9 H Glucose 103 H POC Glucose Uric Acid Calcium Phosphorus Magnesium Iron TIBC AST ALT Total Creatine Kinase CK-MB (CK-2) Troponin T NT-Pro-B Natriuret Pep Total Protein Albumin Triglycerides HDL Cholesterol Folate Urine WBC (Auto) 33.0 H Urine Creatinine Urine Total Protein Vancomycin Trough 05/04/19 05/04/19 05/04/19 04:49 06:50 06:50 WBC 16.0 H RBC Hgb Hct MCV MCH 27 L MCHC 31 L RDW 17.8 H Plt Count Lymph % (Auto) [place] % (Auto) Eos % (Auto) Lymph # [place] # Eos # Seg Neutrophils % Seg Neuts % (Manual) Lymphocytes % (Manual) Monocytes % (Manual) Eosinophils % (Manual) Nucleated RBC % Seg Neutrophils # Seg Neutrophils # Man Lymphocytes # (Manual) Monocytes # (Manual) Eosinophils # (Manual) PT INR APTT Fibrinogen POC ABG pH 7.273 L ABG pH POC ABG pCO2 POC ABG pO2 ABG pO2 ABG HCO3 ABG O2 Saturation ABG Base Excess ABG Hemoglobin Oxyhemoglobin Sodium 148 H Potassium 5.5 H Chloride Carbon Dioxide BUN 53 H Creatinine 3.3 H D Glucose 106 H POC Glucose Uric Acid Calcium 8.3 L Phosphorus Magnesium Iron TIBC AST ALT Total Creatine Kinase CK-MB (CK-2) Troponin T NT-Pro-B Natriuret Pep Total Protein Albumin Triglycerides HDL Cholesterol Folate Urine WBC (Auto) Urine Creatinine Urine Total Protein Vancomycin Trough 05/05/19 05/05/19 05/05/19 00:05 04:30 05:00 WBC RBC Hgb Hct MCV MCH MCHC RDW Plt Count Lymph % (Auto) [place] % (Auto) Eos % (Auto) Lymph # [place] # Eos # Seg Neutrophils % Seg Neuts % (Manual) Lymphocytes % (Manual) Monocytes % (Manual) Eosinophils % (Manual) Nucleated RBC % Seg Neutrophils # Seg Neutrophils # Man Lymphocytes # (Manual) Monocytes # (Manual) Eosinophils # (Manual) PT INR APTT Fibrinogen POC ABG pH 7.225 L ABG pH POC ABG pCO2 > 70 H POC ABG pO2 ABG pO2 ABG HCO3 ABG O2 Saturation ABG Base Excess ABG Hemoglobin Oxyhemoglobin Sodium 151 H Potassium 5.1 H Chloride Carbon Dioxide BUN 64 H Creatinine 3.5 H Glucose 117 H POC Glucose 141 H Uric Acid Calcium 7.5 L Phosphorus Magnesium Iron TIBC AST 93 H ALT 65 H Total Creatine Kinase CK-MB (CK-2) Troponin T NT-Pro-B Natriuret Pep Total Protein Albumin 2.9 L Triglycerides HDL Cholesterol Folate Urine WBC (Auto) Urine Creatinine Urine Total Protein Vancomycin Trough 05/05/19 05/05/19 05/05/19 05:00 12:02 17:46 WBC 12.0 H RBC Hgb 11.3 L Hct MCV MCH 27 L MCHC 30 L RDW 18.4 H Plt Count Lymph % (Auto) 7.9 L [place] % (Auto) 10.2 H Eos % (Auto) Lymph # 1.0 L [place] # 1.2 H Eos # Seg Neutrophils % 80.8 H Seg Neuts % (Manual) Lymphocytes % (Manual) Monocytes % (Manual) Eosinophils % (Manual) Nucleated RBC % Seg Neutrophils # 9.7 H Seg Neutrophils # Man Lymphocytes # (Manual) Monocytes # (Manual) Eosinophils # (Manual) PT INR APTT Fibrinogen POC ABG pH ABG pH POC ABG pCO2 POC ABG pO2 ABG pO2 ABG HCO3 ABG O2 Saturation ABG Base Excess ABG Hemoglobin Oxyhemoglobin Sodium Potassium Chloride Carbon Dioxide BUN Creatinine Glucose POC Glucose 125 H 112 H Uric Acid Calcium Phosphorus Magnesium Iron TIBC AST ALT Total Creatine Kinase CK-MB (CK-2) Troponin T NT-Pro-B Natriuret Pep Total Protein Albumin Triglycerides HDL Cholesterol Folate Urine WBC (Auto) Urine Creatinine Urine Total Protein Vancomycin Trough 05/05/19 05/06/19 05/06/19 23:42 03:58 04:45 WBC 11.4 H RBC Hgb 10.7 L Hct 34.2 L MCV MCH 27 L MCHC 31 L RDW 16.9 H Plt Count Lymph % (Auto) [place] % (Auto) Eos % (Auto) Lymph # [place] # Eos # Seg Neutrophils % Seg Neuts % (Manual) Lymphocytes % (Manual) Monocytes % (Manual) Eosinophils % (Manual) Nucleated RBC % Seg Neutrophils # Seg Neutrophils # Man Lymphocytes # (Manual) Monocytes # (Manual) Eosinophils # (Manual) PT INR APTT Fibrinogen POC ABG pH ABG pH POC ABG pCO2 62.4 H POC ABG pO2 111 H ABG pO2 ABG HCO3 ABG O2 Saturation ABG Base Excess ABG Hemoglobin Oxyhemoglobin Sodium Potassium Chloride Carbon Dioxide BUN Creatinine Glucose POC Glucose 128 H Uric Acid Calcium Phosphorus Magnesium Iron TIBC AST ALT Total Creatine Kinase CK-MB (CK-2) Troponin T NT-Pro-B Natriuret Pep Total Protein Albumin Triglycerides HDL Cholesterol Folate Urine WBC (Auto) Urine Creatinine Urine Total Protein Vancomycin Trough 05/06/19 05/06/19 05/06/19 04:45 05:33 12:30 WBC RBC Hgb Hct MCV MCH MCHC RDW Plt Count Lymph % (Auto) [place] % (Auto) Eos % (Auto) Lymph # [place] # Eos # Seg Neutrophils % Seg Neuts % (Manual) Lymphocytes % (Manual) Monocytes % (Manual) Eosinophils % (Manual) Nucleated RBC % Seg Neutrophils # Seg Neutrophils # Man Lymphocytes # (Manual) Monocytes # (Manual) Eosinophils # (Manual) PT INR APTT Fibrinogen POC ABG pH ABG pH POC ABG pCO2 POC ABG pO2 ABG pO2 ABG HCO3 ABG O2 Saturation ABG Base Excess ABG Hemoglobin Oxyhemoglobin Sodium 149 H Potassium Chloride Carbon Dioxide 31 H BUN 67 H Creatinine 3.2 H Glucose 125 H POC Glucose 117 H 116 H Uric Acid Calcium 7.5 L Phosphorus Magnesium Iron TIBC AST ALT Total Creatine Kinase CK-MB (CK-2) Troponin T NT-Pro-B Natriuret Pep Total Protein Albumin Triglycerides HDL Cholesterol Folate Urine WBC (Auto) Urine Creatinine Urine Total Protein Vancomycin Trough 05/06/19 05/06/19 05/07/19 18:34 23:16 05:22 WBC RBC Hgb Hct MCV MCH MCHC RDW Plt Count Lymph % (Auto) [place] % (Auto) Eos % (Auto) Lymph # [place] # Eos # Seg Neutrophils % Seg Neuts % (Manual) Lymphocytes % (Manual) Monocytes % (Manual) Eosinophils % (Manual) Nucleated RBC % Seg Neutrophils # Seg Neutrophils # Man Lymphocytes # (Manual) Monocytes # (Manual) Eosinophils # (Manual) PT INR APTT Fibrinogen POC ABG pH ABG pH POC ABG pCO2 POC ABG pO2 ABG pO2 ABG HCO3 ABG O2 Saturation ABG Base Excess ABG Hemoglobin Oxyhemoglobin Sodium Potassium Chloride Carbon Dioxide BUN Creatinine Glucose POC Glucose 128 H 143 H 166 H Uric Acid Calcium Phosphorus Magnesium Iron TIBC AST ALT Total Creatine Kinase CK-MB (CK-2) Troponin T NT-Pro-B Natriuret Pep Total Protein Albumin Triglycerides HDL Cholesterol Folate Urine WBC (Auto) Urine Creatinine Urine Total Protein Vancomycin Trough 05/07/19 05/07/19 05/07/19 06:33 07:03 09:35 WBC RBC Hgb Hct MCV MCH MCHC RDW Plt Count Lymph % (Auto) [place] % (Auto) Eos % (Auto) Lymph # [place] # Eos # Seg Neutrophils % Seg Neuts % (Manual) Lymphocytes % (Manual) Monocytes % (Manual) Eosinophils % (Manual) Nucleated RBC % Seg Neutrophils # Seg Neutrophils # Man Lymphocytes # (Manual) Monocytes # (Manual) Eosinophils # (Manual) PT INR APTT Fibrinogen POC ABG pH 7.263 L 7.288 L ABG pH POC ABG pCO2 POC ABG pO2 51 L 56 L ABG pO2 ABG HCO3 ABG O2 Saturation ABG Base Excess ABG Hemoglobin Oxyhemoglobin Sodium Potassium Chloride Carbon Dioxide BUN 76 H Creatinine 3.2 H Glucose 147 H POC Glucose Uric Acid Calcium 7.9 L Phosphorus Magnesium Iron TIBC AST ALT Total Creatine Kinase CK-MB (CK-2) Troponin T NT-Pro-B Natriuret Pep Total Protein Albumin Triglycerides HDL Cholesterol Folate Urine WBC (Auto) Urine Creatinine Urine Total Protein Vancomycin Trough 05/07/19 05/07/19 05/07/19 09:35 12:17 13:45 WBC 13.4 H RBC Hgb 11.6 L Hct MCV MCH 27 L MCHC 31 L RDW 17.5 H Plt Count Lymph % (Auto) [place] % (Auto) Eos % (Auto) Lymph # [place] # Eos # Seg Neutrophils % Seg Neuts % (Manual) Lymphocytes % (Manual) Monocytes % (Manual) Eosinophils % (Manual) Nucleated RBC % Seg Neutrophils # Seg Neutrophils # Man Lymphocytes # (Manual) Monocytes # (Manual) Eosinophils # (Manual) PT INR APTT Fibrinogen POC ABG pH ABG pH POC ABG pCO2 POC ABG pO2 ABG pO2 ABG HCO3 ABG O2 Saturation ABG Base Excess ABG Hemoglobin Oxyhemoglobin Sodium Potassium Chloride Carbon Dioxide BUN Creatinine Glucose POC Glucose 130 H Uric Acid 18.0 H Calcium Phosphorus Magnesium Iron TIBC AST ALT Total Creatine Kinase CK-MB (CK-2) Troponin T NT-Pro-B Natriuret Pep Total Protein Albumin Triglycerides HDL Cholesterol Folate Urine WBC (Auto) Urine Creatinine Urine Total Protein Vancomycin Trough 05/07/19 05/07/19 05/08/19 17:39 22:40 05:06 WBC RBC Hgb Hct MCV MCH MCHC RDW Plt Count Lymph % (Auto) [place] % (Auto) Eos % (Auto) Lymph # [place] # Eos # Seg Neutrophils % Seg Neuts % (Manual) Lymphocytes % (Manual) Monocytes % (Manual) Eosinophils % (Manual) Nucleated RBC % Seg Neutrophils # Seg Neutrophils # Man Lymphocytes # (Manual) Monocytes # (Manual) Eosinophils # (Manual) PT INR APTT Fibrinogen POC ABG pH ABG pH POC ABG pCO2 POC ABG pO2 ABG pO2 ABG HCO3 ABG O2 Saturation ABG Base Excess ABG Hemoglobin Oxyhemoglobin Sodium Potassium Chloride Carbon Dioxide BUN Creatinine Glucose POC Glucose 116 H 148 H Uric Acid Calcium Phosphorus Magnesium Iron TIBC AST ALT Total Creatine Kinase CK-MB (CK-2) Troponin T NT-Pro-B Natriuret Pep Total Protein Albumin Triglycerides HDL Cholesterol Folate Urine WBC (Auto) Urine Creatinine 292.8 H Urine Total Protein 269 H Vancomycin Trough 05/08/19 05/08/19 05/08/19 05:32 11:28 13:48 WBC RBC Hgb Hct MCV MCH MCHC RDW Plt Count Lymph % (Auto) [place] % (Auto) Eos % (Auto) Lymph # [place] # Eos # Seg Neutrophils % Seg Neuts % (Manual) Lymphocytes % (Manual) Monocytes % (Manual) Eosinophils % (Manual) Nucleated RBC % Seg Neutrophils # Seg Neutrophils # Man Lymphocytes # (Manual) Monocytes # (Manual) Eosinophils # (Manual) PT INR APTT Fibrinogen POC ABG pH ABG pH POC ABG pCO2 45.4 H POC ABG pO2 64 L ABG pO2 ABG HCO3 ABG O2 Saturation ABG Base Excess ABG Hemoglobin Oxyhemoglobin Sodium Potassium Chloride Carbon Dioxide BUN 73 H Creatinine 2.7 H Glucose 127 H POC Glucose 107 H Uric Acid Calcium 7.6 L Phosphorus Magnesium Iron TIBC AST ALT Total Creatine Kinase CK-MB (CK-2) Troponin T NT-Pro-B Natriuret Pep Total Protein Albumin Triglycerides HDL Cholesterol Folate Urine WBC (Auto) Urine Creatinine Urine Total Protein Vancomycin Trough 05/08/19 05/09/19 05/09/19 17:48 04:50 04:53 WBC RBC 3.07 L Hgb 8.5 L D Hct 29.3 L D MCV 96 H MCH MCHC 29 L RDW 18.1 H Plt Count Lymph % (Auto) [place] % (Auto) Eos % (Auto) Lymph # [place] # Eos # Seg Neutrophils % Seg Neuts % (Manual) Lymphocytes % (Manual) Monocytes % (Manual) Eosinophils % (Manual) Nucleated RBC % Seg Neutrophils # Seg Neutrophils # Man Lymphocytes # (Manual) Monocytes # (Manual) Eosinophils # (Manual) PT INR APTT Fibrinogen POC ABG pH 7.316 L ABG pH POC ABG pCO2 66.0 H POC ABG pO2 69 L ABG pO2 ABG HCO3 ABG O2 Saturation ABG Base Excess ABG Hemoglobin Oxyhemoglobin Sodium Potassium Chloride Carbon Dioxide BUN Creatinine Glucose POC Glucose 155 H Uric Acid Calcium Phosphorus Magnesium Iron TIBC AST ALT Total Creatine Kinase CK-MB (CK-2) Troponin T NT-Pro-B Natriuret Pep Total Protein Albumin Triglycerides HDL Cholesterol Folate Urine WBC (Auto) Urine Creatinine Urine Total Protein Vancomycin Trough 05/09/19 05/09/19 05/09/19 05:46 07:24 12:10 WBC RBC Hgb Hct MCV MCH MCHC RDW Plt Count Lymph % (Auto) [place] % (Auto) Eos % (Auto) Lymph # [place] # Eos # Seg Neutrophils % Seg Neuts % (Manual) Lymphocytes % (Manual) Monocytes % (Manual) Eosinophils % (Manual) Nucleated RBC % Seg Neutrophils # Seg Neutrophils # Man Lymphocytes # (Manual) Monocytes # (Manual) Eosinophils # (Manual) PT INR APTT Fibrinogen POC ABG pH ABG pH POC ABG pCO2 POC ABG pO2 ABG pO2 ABG HCO3 ABG O2 Saturation ABG Base Excess ABG Hemoglobin Oxyhemoglobin Sodium Potassium Chloride Carbon Dioxide BUN 73 H Creatinine 2.4 H Glucose 153 H POC Glucose 123 H 148 H Uric Acid Calcium 8.2 L Phosphorus Magnesium Iron TIBC AST 45 H ALT Total Creatine Kinase CK-MB (CK-2) Troponin T NT-Pro-B Natriuret Pep Total Protein 6.0 L Albumin 1.9 L Triglycerides HDL Cholesterol Folate Urine WBC (Auto) Urine Creatinine Urine Total Protein Vancomycin Trough 05/09/19 05/09/19 05/10/19 18:23 23:26 04:52 WBC RBC Hgb Hct MCV MCH MCHC RDW Plt Count Lymph % (Auto) [place] % (Auto) Eos % (Auto) Lymph # [place] # Eos # Seg Neutrophils % Seg Neuts % (Manual) Lymphocytes % (Manual) Monocytes % (Manual) Eosinophils % (Manual) Nucleated RBC % Seg Neutrophils # Seg Neutrophils # Man Lymphocytes # (Manual) Monocytes # (Manual) Eosinophils # (Manual) PT INR APTT Fibrinogen POC ABG pH 7.305 L ABG pH POC ABG pCO2 62.6 H POC ABG pO2 ABG pO2 ABG HCO3 ABG O2 Saturation ABG Base Excess ABG Hemoglobin Oxyhemoglobin Sodium Potassium Chloride Carbon Dioxide BUN Creatinine Glucose POC Glucose 147 H 121 H Uric Acid Calcium Phosphorus Magnesium Iron TIBC AST ALT Total Creatine Kinase CK-MB (CK-2) Troponin T NT-Pro-B Natriuret Pep Total Protein Albumin Triglycerides HDL Cholesterol Folate Urine WBC (Auto) Urine Creatinine Urine Total Protein Vancomycin Trough 05/10/19 05/10/19 05/10/19 05:00 05:00 05:50 WBC RBC Hgb 10.3 L Hct 33.7 L MCV MCH 27 L MCHC 31 L RDW 17.0 H Plt Count Lymph % (Auto) [place] % (Auto) Eos % (Auto) Lymph # [place] # Eos # Seg Neutrophils % Seg Neuts % (Manual) Lymphocytes % (Manual) Monocytes % (Manual) Eosinophils % (Manual) Nucleated RBC % Seg Neutrophils # Seg Neutrophils # Man Lymphocytes # (Manual) Monocytes # (Manual) Eosinophils # (Manual) PT INR APTT Fibrinogen POC ABG pH ABG pH POC ABG pCO2 POC ABG pO2 ABG pO2 ABG HCO3 ABG O2 Saturation ABG Base Excess ABG Hemoglobin Oxyhemoglobin Sodium 147 H Potassium Chloride Carbon Dioxide BUN 70 H Creatinine 2.6 H Glucose 155 H POC Glucose 158 H Uric Acid Calcium 8.2 L Phosphorus Magnesium Iron TIBC AST ALT Total Creatine Kinase CK-MB (CK-2) Troponin T NT-Pro-B Natriuret Pep Total Protein 6.1 L Albumin 2.5 L Triglycerides HDL Cholesterol Folate Urine WBC (Auto) Urine Creatinine Urine Total Protein Vancomycin Trough 05/10/19 05/11/19 05/11/19 13:14 07:26 11:40 WBC RBC Hgb Hct MCV MCH MCHC RDW Plt Count Lymph % (Auto) [place] % (Auto) Eos % (Auto) Lymph # [place] # Eos # Seg Neutrophils % Seg Neuts % (Manual) Lymphocytes % (Manual) Monocytes % (Manual) Eosinophils % (Manual) Nucleated RBC % Seg Neutrophils # Seg Neutrophils # Man Lymphocytes # (Manual) Monocytes # (Manual) Eosinophils # (Manual) PT INR APTT Fibrinogen POC ABG pH ABG pH POC ABG pCO2 48.0 H POC ABG pO2 58 L ABG pO2 ABG HCO3 ABG O2 Saturation ABG Base Excess ABG Hemoglobin Oxyhemoglobin Sodium 147 H Potassium Chloride 107.2 H Carbon Dioxide BUN 67 H Creatinine 2.6 H Glucose 121 H POC Glucose 159 H Uric Acid Calcium Phosphorus Magnesium Iron TIBC AST ALT Total Creatine Kinase CK-MB (CK-2) Troponin T NT-Pro-B Natriuret Pep Total Protein Albumin Triglycerides HDL Cholesterol Folate Urine WBC (Auto) Urine Creatinine Urine Total Protein Vancomycin Trough 05/11/19 05/11/19 05/12/19 18:13 23:46 04:40 WBC RBC Hgb Hct MCV MCH MCHC RDW Plt Count Lymph % (Auto) [place] % (Auto) Eos % (Auto) Lymph # [place] # Eos # Seg Neutrophils % Seg Neuts % (Manual) Lymphocytes % (Manual) Monocytes % (Manual) Eosinophils % (Manual) Nucleated RBC % Seg Neutrophils # Seg Neutrophils # Man Lymphocytes # (Manual) Monocytes # (Manual) Eosinophils # (Manual) PT INR APTT Fibrinogen POC ABG pH ABG pH 7.264 L POC ABG pCO2 POC ABG pO2 ABG pO2 66.8 L ABG HCO3 31.0 H ABG O2 Saturation 92.0 L ABG Base Excess ABG Hemoglobin 10.3 L Oxyhemoglobin 90.1 L Sodium Potassium Chloride Carbon Dioxide BUN Creatinine Glucose POC Glucose 120 H 121 H Uric Acid Calcium Phosphorus Magnesium Iron TIBC AST ALT Total Creatine Kinase CK-MB (CK-2) Troponin T NT-Pro-B Natriuret Pep Total Protein Albumin Triglycerides HDL Cholesterol Folate Urine WBC (Auto) Urine Creatinine Urine Total Protein Vancomycin Trough 05/12/19 05/12/19 05/12/19 04:45 04:45 11:14 WBC RBC Hgb 10.2 L Hct 32.4 L MCV MCH MCHC 31 L RDW 17.2 H Plt Count Lymph % (Auto) [place] % (Auto) Eos % (Auto) Lymph # [place] # Eos # Seg Neutrophils % Seg Neuts % (Manual) Lymphocytes % (Manual) Monocytes % (Manual) Eosinophils % (Manual) Nucleated RBC % Seg Neutrophils # Seg Neutrophils # Man Lymphocytes # (Manual) Monocytes # (Manual) Eosinophils # (Manual) PT INR APTT Fibrinogen POC ABG pH 7.284 L ABG pH POC ABG pCO2 67.8 H POC ABG pO2 ABG pO2 ABG HCO3 ABG O2 Saturation ABG Base Excess ABG Hemoglobin Oxyhemoglobin Sodium Potassium Chloride Carbon Dioxide BUN 63 H Creatinine 2.4 H Glucose 110 H POC Glucose Uric Acid Calcium Phosphorus Magnesium Iron TIBC AST ALT Total Creatine Kinase CK-MB (CK-2) Troponin T NT-Pro-B Natriuret Pep Total Protein Albumin Triglycerides HDL Cholesterol Folate Urine WBC (Auto) Urine Creatinine Urine Total Protein Vancomycin Trough 05/12/19 05/12/19 05/13/19 11:44 23:11 04:30 WBC RBC Hgb Hct MCV MCH MCHC RDW Plt Count Lymph % (Auto) [place] % (Auto) Eos % (Auto) Lymph # [place] # Eos # Seg Neutrophils % Seg Neuts % (Manual) Lymphocytes % (Manual) Monocytes % (Manual) Eosinophils % (Manual) Nucleated RBC % Seg Neutrophils # Seg Neutrophils # Man Lymphocytes # (Manual) Monocytes # (Manual) Eosinophils # (Manual) PT INR APTT Fibrinogen POC ABG pH ABG pH 7.288 L POC ABG pCO2 POC ABG pO2 ABG pO2 109.7 H ABG HCO3 30.9 H ABG O2 Saturation ABG Base Excess 3.2 H ABG Hemoglobin 9.6 L Oxyhemoglobin Sodium Potassium Chloride Carbon Dioxide BUN Creatinine Glucose POC Glucose 126 H 147 H Uric Acid Calcium Phosphorus Magnesium Iron TIBC AST ALT Total Creatine Kinase CK-MB (CK-2) Troponin T NT-Pro-B Natriuret Pep Total Protein Albumin Triglycerides HDL Cholesterol Folate Urine WBC (Auto) Urine Creatinine Urine Total Protein Vancomycin Trough 05/13/19 05/13/19 05/14/19 06:27 11:58 04:00 WBC RBC 3.16 L Hgb 9.3 L Hct 27.9 L MCV MCH MCHC RDW 17.1 H Plt Count Lymph % (Auto) [place] % (Auto) Eos % (Auto) Lymph # [place] # Eos # Seg Neutrophils % Seg Neuts % (Manual) Lymphocytes % (Manual) Monocytes % (Manual) Eosinophils % (Manual) Nucleated RBC % Seg Neutrophils # Seg Neutrophils # Man Lymphocytes # (Manual) Monocytes # (Manual) Eosinophils # (Manual) PT INR APTT Fibrinogen POC ABG pH ABG pH POC ABG pCO2 POC ABG pO2 ABG pO2 ABG HCO3 ABG O2 Saturation ABG Base Excess ABG Hemoglobin Oxyhemoglobin Sodium Potassium Chloride Carbon Dioxide BUN Creatinine Glucose POC Glucose 113 H 130 H Uric Acid Calcium Phosphorus Magnesium Iron TIBC AST ALT Total Creatine Kinase CK-MB (CK-2) Troponin T NT-Pro-B Natriuret Pep Total Protein Albumin Triglycerides HDL Cholesterol Folate Urine WBC (Auto) Urine Creatinine Urine Total Protein Vancomycin Trough 05/14/19 05/14/19 05/14/19 04:00 04:34 05:32 WBC RBC Hgb Hct MCV MCH MCHC RDW Plt Count Lymph % (Auto) [place] % (Auto) Eos % (Auto) Lymph # [place] # Eos # Seg Neutrophils % Seg Neuts % (Manual) Lymphocytes % (Manual) Monocytes % (Manual) Eosinophils % (Manual) Nucleated RBC % Seg Neutrophils # Seg Neutrophils # Man Lymphocytes # (Manual) Monocytes # (Manual) Eosinophils # (Manual) PT INR APTT Fibrinogen POC ABG pH 7.328 L ABG pH POC ABG pCO2 61.7 H POC ABG pO2 ABG pO2 ABG HCO3 ABG O2 Saturation ABG Base Excess ABG Hemoglobin Oxyhemoglobin Sodium 135 L D Potassium Chloride Carbon Dioxide BUN 57 H Creatinine 2.2 H Glucose 115 H POC Glucose 115 H Uric Acid Calcium 8.1 L Phosphorus Magnesium Iron TIBC AST ALT Total Creatine Kinase CK-MB (CK-2) Troponin T NT-Pro-B Natriuret Pep Total Protein Albumin Triglycerides HDL Cholesterol Folate Urine WBC (Auto) Urine Creatinine Urine Total Protein Vancomycin Trough 05/14/19 05/15/19 05/15/19 12:11 05:10 05:24 WBC RBC Hgb Hct MCV MCH MCHC RDW Plt Count Lymph % (Auto) [place] % (Auto) Eos % (Auto) Lymph # [place] # Eos # Seg Neutrophils % Seg Neuts % (Manual) Lymphocytes % (Manual) Monocytes % (Manual) Eosinophils % (Manual) Nucleated RBC % Seg Neutrophils # Seg Neutrophils # Man Lymphocytes # (Manual) Monocytes # (Manual) Eosinophils # (Manual) PT INR APTT Fibrinogen POC ABG pH ABG pH 7.342 L POC ABG pCO2 POC ABG pO2 ABG pO2 79.1 L ABG HCO3 28.2 H ABG O2 Saturation ABG Base Excess ABG Hemoglobin 7.0 L Oxyhemoglobin 94.4 L Sodium Potassium Chloride Carbon Dioxide BUN Creatinine Glucose POC Glucose 110 H 116 H Uric Acid Calcium Phosphorus Magnesium Iron TIBC AST ALT Total Creatine Kinase CK-MB (CK-2) Troponin T NT-Pro-B Natriuret Pep Total Protein Albumin Triglycerides HDL Cholesterol Folate Urine WBC (Auto) Urine Creatinine Urine Total Protein Vancomycin Trough 05/15/19 05/15/19 05/16/19 09:00 18:12 04:50 WBC RBC Hgb Hct MCV MCH MCHC RDW Plt Count Lymph % (Auto) [place] % (Auto) Eos % (Auto) Lymph # [place] # Eos # Seg Neutrophils % Seg Neuts % (Manual) Lymphocytes % (Manual) Monocytes % (Manual) Eosinophils % (Manual) Nucleated RBC % Seg Neutrophils # Seg Neutrophils # Man Lymphocytes # (Manual) Monocytes # (Manual) Eosinophils # (Manual) PT INR APTT Fibrinogen POC ABG pH ABG pH 7.250 L POC ABG pCO2 POC ABG pO2 ABG pO2 76.4 L ABG HCO3 ABG O2 Saturation 94.6 L ABG Base Excess -3.1 L ABG Hemoglobin 9.7 L Oxyhemoglobin 92.4 L Sodium Potassium Chloride Carbon Dioxide BUN Creatinine Glucose POC Glucose 110 H Uric Acid Calcium Phosphorus Magnesium Iron TIBC AST ALT Total Creatine Kinase CK-MB (CK-2) Troponin T NT-Pro-B Natriuret Pep Total Protein Albumin Triglycerides HDL Cholesterol Folate Urine WBC (Auto) Urine Creatinine Urine Total Protein Vancomycin Trough 20.5 H 05/16/19 05/16/19 05/17/19 05:50 05:50 04:20 WBC RBC 3.36 L 3.44 L Hgb 9.4 L 9.3 L Hct 29.1 L 29.7 L MCV MCH 27 L MCHC 31 L RDW 17.6 H 17.6 H Plt Count Lymph % (Auto) [place] % (Auto) Eos % (Auto) Lymph # [place] # Eos # Seg Neutrophils % Seg Neuts % (Manual) 77.0 H Lymphocytes % (Manual) 5.0 L Monocytes % (Manual) Eosinophils % (Manual) 10.0 H Nucleated RBC % Seg Neutrophils # Seg Neutrophils # Man Lymphocytes # (Manual) 0.5 L Monocytes # (Manual) Eosinophils # (Manual) 0.9 H PT INR APTT Fibrinogen POC ABG pH ABG pH POC ABG pCO2 POC ABG pO2 ABG pO2 ABG HCO3 ABG O2 Saturation ABG Base Excess ABG Hemoglobin Oxyhemoglobin Sodium Potassium Chloride Carbon Dioxide BUN 83 H Creatinine 4.4 H D Glucose 118 H POC Glucose Uric Acid Calcium Phosphorus Magnesium Iron TIBC AST ALT Total Creatine Kinase CK-MB (CK-2) Troponin T NT-Pro-B Natriuret Pep Total Protein Albumin Triglycerides HDL Cholesterol Folate Urine WBC (Auto) Urine Creatinine Urine Total Protein Vancomycin Trough 05/17/19 05/17/19 05/18/19 04:30 Unknown 01:50 WBC RBC 3.49 L Hgb 9.4 L Hct 30.0 L MCV MCH 27 L MCHC 31 L RDW 17.8 H Plt Count Lymph % (Auto) 7.9 L [place] % (Auto) 15.4 H Eos % (Auto) 6.3 H Lymph # 0.7 L [place] # 1.4 H Eos # 0.6 H Seg Neutrophils % 70.2 H Seg Neuts % (Manual) Lymphocytes % (Manual) Monocytes % (Manual) Eosinophils % (Manual) Nucleated RBC % Seg Neutrophils # Seg Neutrophils # Man Lymphocytes # (Manual) Monocytes # (Manual) Eosinophils # (Manual) PT INR APTT Fibrinogen POC ABG pH ABG pH 7.272 L POC ABG pCO2 POC ABG pO2 ABG pO2 75.7 L ABG HCO3 ABG O2 Saturation 93.8 L ABG Base Excess -3.0 L ABG Hemoglobin 7.8 L Oxyhemoglobin 91.6 L Sodium Potassium 5.2 H Chloride Carbon Dioxide BUN 96 H Creatinine 5.7 H Glucose 112 H POC Glucose Uric Acid Calcium Phosphorus Magnesium Iron TIBC AST ALT Total Creatine Kinase CK-MB (CK-2) Troponin T NT-Pro-B Natriuret Pep Total Protein Albumin Triglycerides 173 H HDL Cholesterol Folate Urine WBC (Auto) Urine Creatinine Urine Total Protein Vancomycin Trough 05/18/19 05/18/19 05/18/19 01:50 04:41 05:24 WBC RBC Hgb Hct MCV MCH MCHC RDW Plt Count Lymph % (Auto) [place] % (Auto) Eos % (Auto) Lymph # [place] # Eos # Seg Neutrophils % Seg Neuts % (Manual) Lymphocytes % (Manual) Monocytes % (Manual) Eosinophils % (Manual) Nucleated RBC % Seg Neutrophils # Seg Neutrophils # Man Lymphocytes # (Manual) Monocytes # (Manual) Eosinophils # (Manual) PT INR APTT Fibrinogen POC ABG pH 7.260 L ABG pH POC ABG pCO2 54.9 H POC ABG pO2 ABG pO2 ABG HCO3 ABG O2 Saturation ABG Base Excess ABG Hemoglobin Oxyhemoglobin Sodium Potassium 5.6 H Chloride Carbon Dioxide BUN 104 H Creatinine 6.6 H Glucose 107 H POC Glucose 106 H Uric Acid Calcium Phosphorus Magnesium Iron TIBC AST ALT Total Creatine Kinase CK-MB (CK-2) Troponin T NT-Pro-B Natriuret Pep Total Protein Albumin Triglycerides HDL Cholesterol Folate Urine WBC (Auto) Urine Creatinine Urine Total Protein Vancomycin Trough 05/18/19 05/18/19 05/19/19 11:34 23:26 04:06 WBC RBC 3.22 L Hgb 8.8 L Hct 27.3 L MCV MCH 27 L MCHC RDW 17.5 H Plt Count Lymph % (Auto) [place] % (Auto) Eos % (Auto) Lymph # [place] # Eos # Seg Neutrophils % Seg Neuts % (Manual) 74.0 H Lymphocytes % (Manual) 4.0 L Monocytes % (Manual) 11.0 H Eosinophils % (Manual) 7.0 H Nucleated RBC % 1.0 H Seg Neutrophils # Seg Neutrophils # Man Lymphocytes # (Manual) 0.3 L Monocytes # (Manual) 0.9 H Eosinophils # (Manual) 0.6 H PT INR APTT Fibrinogen POC ABG pH ABG pH POC ABG pCO2 POC ABG pO2 ABG pO2 ABG HCO3 ABG O2 Saturation ABG Base Excess ABG Hemoglobin Oxyhemoglobin Sodium Potassium Chloride Carbon Dioxide BUN Creatinine Glucose POC Glucose 152 H 112 H Uric Acid Calcium Phosphorus Magnesium Iron TIBC AST ALT Total Creatine Kinase CK-MB (CK-2) Troponin T NT-Pro-B Natriuret Pep Total Protein Albumin Triglycerides HDL Cholesterol Folate Urine WBC (Auto) Urine Creatinine Urine Total Protein Vancomycin Trough 05/19/19 05/19/19 05/20/19 04:06 06:00 04:00 WBC RBC 3.40 L Hgb 9.2 L Hct 28.6 L MCV MCH 27 L MCHC RDW 17.6 H Plt Count Lymph % (Auto) [place] % (Auto) Eos % (Auto) Lymph # [place] # Eos # Seg Neutrophils % Seg Neuts % (Manual) Lymphocytes % (Manual) 11.0 L Monocytes % (Manual) Eosinophils % (Manual) 14.0 H Nucleated RBC % Seg Neutrophils # Seg Neutrophils # Man Lymphocytes # (Manual) 1.1 L Monocytes # (Manual) Eosinophils # (Manual) 1.4 H PT INR APTT Fibrinogen POC ABG pH ABG pH 7.315 L POC ABG pCO2 POC ABG pO2 ABG pO2 ABG HCO3 ABG O2 Saturation ABG Base Excess ABG Hemoglobin 6.7 L Oxyhemoglobin 94.1 L Sodium Potassium 5.2 H Chloride Carbon Dioxide 21 L BUN 110 H Creatinine 7.2 H Glucose POC Glucose Uric Acid Calcium 8.3 L Phosphorus Magnesium Iron TIBC AST ALT Total Creatine Kinase CK-MB (CK-2) Troponin T NT-Pro-B Natriuret Pep Total Protein Albumin Triglycerides HDL Cholesterol Folate Urine WBC (Auto) Urine Creatinine Urine Total Protein Vancomycin Trough 05/20/19 05/20/19 05/20/19 04:00 05:48 12:00 WBC RBC Hgb Hct MCV MCH MCHC RDW Plt Count Lymph % (Auto) [place] % (Auto) Eos % (Auto) Lymph # [place] # Eos # Seg Neutrophils % Seg Neuts % (Manual) Lymphocytes % (Manual) Monocytes % (Manual) Eosinophils % (Manual) Nucleated RBC % Seg Neutrophils # Seg Neutrophils # Man Lymphocytes # (Manual) Monocytes # (Manual) Eosinophils # (Manual) PT INR APTT Fibrinogen POC ABG pH ABG pH 7.281 L POC ABG pCO2 POC ABG pO2 ABG pO2 78.7 L ABG HCO3 ABG O2 Saturation 94.5 L ABG Base Excess -3.0 L ABG Hemoglobin 9.9 L Oxyhemoglobin 92.5 L Sodium 136 L Potassium 5.7 H Chloride 96.3 L Carbon Dioxide BUN 125 H Creatinine 8.3 H Glucose 106 H POC Glucose Uric Acid Calcium Phosphorus Magnesium Iron TIBC AST ALT Total Creatine Kinase CK-MB (CK-2) Troponin T NT-Pro-B Natriuret Pep Total Protein Albumin Triglycerides HDL Cholesterol Folate Urine WBC (Auto) 26.0 H Urine Creatinine Urine Total Protein Vancomycin Trough 05/21/19 05/21/19 05/21/19 04:33 05:20 Unknown WBC RBC 3.38 L Hgb 9.1 L Hct 28.5 L MCV MCH 27 L MCHC RDW 17.4 H Plt Count Lymph % (Auto) [place] % (Auto) Eos % (Auto) Lymph # [place] # Eos # Seg Neutrophils % Seg Neuts % (Manual) 71.0 H Lymphocytes % (Manual) 1.0 L Monocytes % (Manual) 11.0 H Eosinophils % (Manual) 6.0 H Nucleated RBC % Seg Neutrophils # Seg Neutrophils # Man Lymphocytes # (Manual) 0.1 L Monocytes # (Manual) 1.0 H Eosinophils # (Manual) 0.6 H PT INR APTT Fibrinogen POC ABG pH 7.315 L ABG pH POC ABG pCO2 57.8 H POC ABG pO2 68 L ABG pO2 ABG HCO3 ABG O2 Saturation ABG Base Excess ABG Hemoglobin Oxyhemoglobin Sodium Potassium Chloride 96.3 L Carbon Dioxide BUN 102 H Creatinine 7.0 H Glucose 103 H POC Glucose Uric Acid Calcium Phosphorus Magnesium Iron TIBC AST ALT Total Creatine Kinase CK-MB (CK-2) Troponin T NT-Pro-B Natriuret Pep Total Protein Albumin Triglycerides HDL Cholesterol Folate Urine WBC (Auto) Urine Creatinine Urine Total Protein Vancomycin Trough 05/22/19 05/22/19 05/22/19 03:54 06:25 06:25 WBC RBC 3.22 L Hgb 8.6 L Hct 27.0 L MCV MCH 27 L MCHC RDW 17.5 H Plt Count Lymph % (Auto) [place] % (Auto) 16.2 H Eos % (Auto) 10.8 H Lymph # [place] # 1.3 H Eos # 0.9 H Seg Neutrophils % Seg Neuts % (Manual) Lymphocytes % (Manual) 10.0 L Monocytes % (Manual) 13.0 H Eosinophils % (Manual) 8.0 H Nucleated RBC % Seg Neutrophils # Seg Neutrophils # Man Lymphocytes # (Manual) 0.9 L Monocytes # (Manual) 1.1 H Eosinophils # (Manual) 0.7 H PT INR APTT Fibrinogen POC ABG pH 7.313 L ABG pH POC ABG pCO2 55.0 H POC ABG pO2 ABG pO2 ABG HCO3 ABG O2 Saturation ABG Base Excess ABG Hemoglobin Oxyhemoglobin Sodium 135 L Potassium Chloride 94.3 L Carbon Dioxide BUN 117 H Creatinine 7.8 H Glucose POC Glucose Uric Acid Calcium 8.2 L Phosphorus Magnesium Iron TIBC AST ALT Total Creatine Kinase CK-MB (CK-2) Troponin T NT-Pro-B Natriuret Pep Total Protein Albumin Triglycerides HDL Cholesterol Folate Urine WBC (Auto) Urine Creatinine Urine Total Protein Vancomycin Trough 05/23/19 05/24/19 05/24/19 05:21 05:00 05:00 WBC RBC 3.18 L Hgb 8.5 L Hct 26.7 L MCV MCH 27 L MCHC RDW 17.9 H Plt Count Lymph % (Auto) [place] % (Auto) Eos % (Auto) Lymph # [place] # Eos # Seg Neutrophils % Seg Neuts % (Manual) Lymphocytes % (Manual) Monocytes % (Manual) Eosinophils % (Manual) Nucleated RBC % Seg Neutrophils # Seg Neutrophils # Man Lymphocytes # (Manual) Monocytes # (Manual) Eosinophils # (Manual) PT INR APTT Fibrinogen POC ABG pH ABG pH POC ABG pCO2 49.7 H POC ABG pO2 73 L ABG pO2 ABG HCO3 ABG O2 Saturation ABG Base Excess ABG Hemoglobin Oxyhemoglobin Sodium Potassium Chloride 95.7 L Carbon Dioxide BUN 97 H Creatinine 6.5 H Glucose POC Glucose Uric Acid Calcium 8.0 L Phosphorus Magnesium Iron TIBC AST ALT Total Creatine Kinase CK-MB (CK-2) Troponin T NT-Pro-B Natriuret Pep Total Protein Albumin Triglycerides HDL Cholesterol Folate Urine WBC (Auto) Urine Creatinine Urine Total Protein Vancomycin Trough 05/24/19 05/25/19 05/25/19 06:17 04:22 15:45 WBC RBC 2.98 L Hgb 8.1 L Hct 24.9 L MCV MCH 27 L MCHC RDW 17.8 H Plt Count Lymph % (Auto) [place] % (Auto) Eos % (Auto) Lymph # [place] # Eos # Seg Neutrophils % Seg Neuts % (Manual) Lymphocytes % (Manual) Monocytes % (Manual) Eosinophils % (Manual) Nucleated RBC % Seg Neutrophils # Seg Neutrophils # Man Lymphocytes # (Manual) Monocytes # (Manual) Eosinophils # (Manual) PT INR APTT Fibrinogen POC ABG pH 7.330 L 7.313 L ABG pH POC ABG pCO2 52.5 H 51.1 H POC ABG pO2 77 L ABG pO2 ABG HCO3 ABG O2 Saturation ABG Base Excess ABG Hemoglobin Oxyhemoglobin Sodium Potassium Chloride Carbon Dioxide BUN Creatinine Glucose POC Glucose Uric Acid Calcium Phosphorus Magnesium Iron TIBC AST ALT Total Creatine Kinase CK-MB (CK-2) Troponin T NT-Pro-B Natriuret Pep Total Protein Albumin Triglycerides HDL Cholesterol Folate Urine WBC (Auto) Urine Creatinine Urine Total Protein Vancomycin Trough 05/25/19 05/26/19 05/26/19 15:45 04:13 05:00 WBC RBC 3.10 L Hgb 8.4 L Hct 26.0 L MCV MCH 27 L MCHC RDW 17.4 H Plt Count Lymph % (Auto) [place] % (Auto) Eos % (Auto) Lymph # [place] # Eos # Seg Neutrophils % Seg Neuts % (Manual) Lymphocytes % (Manual) Monocytes % (Manual) Eosinophils % (Manual) Nucleated RBC % Seg Neutrophils # Seg Neutrophils # Man Lymphocytes # (Manual) Monocytes # (Manual) Eosinophils # (Manual) PT INR APTT Fibrinogen POC ABG pH 7.295 L ABG pH POC ABG pCO2 56.5 H POC ABG pO2 63 L ABG pO2 ABG HCO3 ABG O2 Saturation ABG Base Excess ABG Hemoglobin Oxyhemoglobin Sodium 136 L Potassium Chloride 96.8 L Carbon Dioxide BUN 83 H Creatinine 5.9 H Glucose POC Glucose Uric Acid Calcium 7.6 L Phosphorus Magnesium Iron TIBC AST ALT Total Creatine Kinase CK-MB (CK-2) Troponin T NT-Pro-B Natriuret Pep Total Protein Albumin Triglycerides HDL Cholesterol Folate Urine WBC (Auto) Urine Creatinine Urine Total Protein Vancomycin Trough 05/26/19 05/27/19 05/28/19 05:00 04:48 04:47 WBC RBC Hgb Hct MCV MCH MCHC RDW Plt Count Lymph % (Auto) [place] % (Auto) Eos % (Auto) Lymph # [place] # Eos # Seg Neutrophils % Seg Neuts % (Manual) Lymphocytes % (Manual) Monocytes % (Manual) Eosinophils % (Manual) Nucleated RBC % Seg Neutrophils # Seg Neutrophils # Man Lymphocytes # (Manual) Monocytes # (Manual) Eosinophils # (Manual) PT INR APTT Fibrinogen POC ABG pH 7.323 L ABG pH 7.284 L POC ABG pCO2 56.2 H POC ABG pO2 ABG pO2 71.6 L ABG HCO3 ABG O2 Saturation 92.0 L ABG Base Excess ABG Hemoglobin 7.7 L Oxyhemoglobin 89.9 L Sodium 136 L Potassium Chloride 95.3 L Carbon Dioxide BUN 96 H Creatinine 6.5 H Glucose 108 H POC Glucose Uric Acid Calcium 7.6 L Phosphorus Magnesium Iron TIBC AST ALT Total Creatine Kinase CK-MB (CK-2) Troponin T NT-Pro-B Natriuret Pep Total Protein Albumin Triglycerides HDL Cholesterol Folate Urine WBC (Auto) Urine Creatinine Urine Total Protein Vancomycin Trough 05/28/19 05/29/19 05/29/19 12:30 12:47 23:44 WBC RBC Hgb Hct MCV MCH MCHC RDW Plt Count Lymph % (Auto) [place] % (Auto) Eos % (Auto) Lymph # [place] # Eos # Seg Neutrophils % Seg Neuts % (Manual) Lymphocytes % (Manual) Monocytes % (Manual) Eosinophils % (Manual) Nucleated RBC % Seg Neutrophils # Seg Neutrophils # Man Lymphocytes # (Manual) Monocytes # (Manual) Eosinophils # (Manual) PT INR APTT Fibrinogen POC ABG pH ABG pH POC ABG pCO2 POC ABG pO2 ABG pO2 ABG HCO3 ABG O2 Saturation ABG Base Excess ABG Hemoglobin Oxyhemoglobin Sodium 135 L Potassium Chloride 95.3 L Carbon Dioxide BUN 82 H Creatinine 6.0 H Glucose POC Glucose 136 H 159 H Uric Acid Calcium 7.5 L Phosphorus Magnesium Iron TIBC AST ALT Total Creatine Kinase CK-MB (CK-2) Troponin T NT-Pro-B Natriuret Pep Total Protein Albumin Triglycerides HDL Cholesterol Folate Urine WBC (Auto) Urine Creatinine Urine Total Protein Vancomycin Trough 05/30/19 05/30/19 05/30/19 04:30 05:38 12:00 WBC RBC 3.01 L Hgb 8.2 L Hct 25.3 L MCV MCH 27 L MCHC RDW 17.5 H Plt Count Lymph % (Auto) [place] % (Auto) Eos % (Auto) Lymph # [place] # Eos # Seg Neutrophils % Seg Neuts % (Manual) 80.0 H Lymphocytes % (Manual) 10.0 L Monocytes % (Manual) Eosinophils % (Manual) Nucleated RBC % Seg Neutrophils # Seg Neutrophils # Man 8.0 H Lymphocytes # (Manual) 1.0 L Monocytes # (Manual) Eosinophils # (Manual) PT INR APTT Fibrinogen POC ABG pH ABG pH POC ABG pCO2 POC ABG pO2 73 L ABG pO2 ABG HCO3 ABG O2 Saturation ABG Base Excess ABG Hemoglobin Oxyhemoglobin Sodium Potassium Chloride Carbon Dioxide BUN Creatinine Glucose POC Glucose 166 H Uric Acid Calcium Phosphorus Magnesium Iron TIBC AST ALT Total Creatine Kinase CK-MB (CK-2) Troponin T NT-Pro-B Natriuret Pep Total Protein Albumin Triglycerides HDL Cholesterol Folate Urine WBC (Auto) Urine Creatinine Urine Total Protein Vancomycin Trough 05/30/19 05/31/19 05/31/19 23:45 04:07 13:04 WBC 14.3 H RBC 2.88 L Hgb 7.7 L Hct 23.9 L MCV 83 L MCH 27 L MCHC RDW 17.8 H Plt Count Lymph % (Auto) [place] % (Auto) Eos % (Auto) Lymph # [place] # Eos # Seg Neutrophils % Seg Neuts % (Manual) 83.0 H Lymphocytes % (Manual) 11.0 L Monocytes % (Manual) Eosinophils % (Manual) Nucleated RBC % Seg Neutrophils # Seg Neutrophils # Man 11.9 H Lymphocytes # (Manual) Monocytes # (Manual) 0.9 H Eosinophils # (Manual) PT INR APTT Fibrinogen POC ABG pH ABG pH POC ABG pCO2 47.4 H POC ABG pO2 ABG pO2 ABG HCO3 ABG O2 Saturation ABG Base Excess ABG Hemoglobin Oxyhemoglobin Sodium Potassium Chloride Carbon Dioxide BUN Creatinine Glucose POC Glucose 209 H Uric Acid Calcium Phosphorus Magnesium Iron TIBC AST ALT Total Creatine Kinase CK-MB (CK-2) Troponin T NT-Pro-B Natriuret Pep Total Protein Albumin Triglycerides HDL Cholesterol Folate Urine WBC (Auto) Urine Creatinine Urine Total Protein Vancomycin Trough 05/31/19 05/31/19 06/01/19 13:04 16:42 00:15 WBC RBC Hgb Hct MCV MCH MCHC RDW Plt Count Lymph % (Auto) [place] % (Auto) Eos % (Auto) Lymph # [place] # Eos # Seg Neutrophils % Seg Neuts % (Manual) Lymphocytes % (Manual) Monocytes % (Manual) Eosinophils % (Manual) Nucleated RBC % Seg Neutrophils # Seg Neutrophils # Man Lymphocytes # (Manual) Monocytes # (Manual) Eosinophils # (Manual) PT INR APTT Fibrinogen POC ABG pH ABG pH POC ABG pCO2 POC ABG pO2 ABG pO2 ABG HCO3 ABG O2 Saturation ABG Base Excess ABG Hemoglobin Oxyhemoglobin Sodium 129 L Potassium Chloride 88.6 L Carbon Dioxide 19 L BUN 117 H Creatinine 6.7 H Glucose 205 H POC Glucose 228 H 223 H Uric Acid Calcium 7.4 L Phosphorus 7.40 H Magnesium Iron TIBC AST 58 H ALT 149 H Total Creatine Kinase CK-MB (CK-2) Troponin T NT-Pro-B Natriuret Pep Total Protein 6.0 L Albumin 2.5 L Triglycerides HDL Cholesterol Folate Urine WBC (Auto) Urine Creatinine Urine Total Protein Vancomycin Trough 06/01/19 06/01/19 06/01/19 04:33 05:27 12:31 WBC RBC Hgb Hct MCV MCH MCHC RDW Plt Count Lymph % (Auto) [place] % (Auto) Eos % (Auto) Lymph # [place] # Eos # Seg Neutrophils % Seg Neuts % (Manual) Lymphocytes % (Manual) Monocytes % (Manual) Eosinophils % (Manual) Nucleated RBC % Seg Neutrophils # Seg Neutrophils # Man Lymphocytes # (Manual) Monocytes # (Manual) Eosinophils # (Manual) PT INR APTT Fibrinogen POC ABG pH ABG pH POC ABG pCO2 POC ABG pO2 ABG pO2 56.9 L ABG HCO3 ABG O2 Saturation 85.9 L ABG Base Excess ABG Hemoglobin 8.1 L Oxyhemoglobin 83.6 L Sodium Potassium Chloride Carbon Dioxide BUN Creatinine Glucose POC Glucose 183 H 217 H Uric Acid Calcium Phosphorus Magnesium Iron TIBC AST ALT Total Creatine Kinase CK-MB (CK-2) Troponin T NT-Pro-B Natriuret Pep Total Protein Albumin Triglycerides HDL Cholesterol Folate Urine WBC (Auto) Urine Creatinine Urine Total Protein Vancomycin Trough 06/01/19 06/02/19 06/02/19 18:20 00:00 05:33 WBC RBC Hgb Hct MCV MCH MCHC RDW Plt Count Lymph % (Auto) [place] % (Auto) Eos % (Auto) Lymph # [place] # Eos # Seg Neutrophils % Seg Neuts % (Manual) Lymphocytes % (Manual) Monocytes % (Manual) Eosinophils % (Manual) Nucleated RBC % Seg Neutrophils # Seg Neutrophils # Man Lymphocytes # (Manual) Monocytes # (Manual) Eosinophils # (Manual) PT INR APTT Fibrinogen POC ABG pH ABG pH POC ABG pCO2 POC ABG pO2 ABG pO2 ABG HCO3 ABG O2 Saturation ABG Base Excess ABG Hemoglobin Oxyhemoglobin Sodium Potassium Chloride Carbon Dioxide BUN Creatinine Glucose POC Glucose 265 H 279 H 259 H Uric Acid Calcium Phosphorus Magnesium Iron TIBC AST ALT Total Creatine Kinase CK-MB (CK-2) Troponin T NT-Pro-B Natriuret Pep Total Protein Albumin Triglycerides HDL Cholesterol Folate Urine WBC (Auto) Urine Creatinine Urine Total Protein Vancomycin Trough 06/02/19 06/02/19 06/02/19 11:06 11:06 11:42 WBC 13.1 H RBC 2.92 L Hgb 7.9 L Hct 24.4 L MCV MCH 27 L MCHC RDW 17.4 H Plt Count Lymph % (Auto) [place] % (Auto) Eos % (Auto) Lymph # [place] # Eos # Seg Neutrophils % Seg Neuts % (Manual) 78.0 H Lymphocytes % (Manual) 12.0 L Monocytes % (Manual) 10.0 H Eosinophils % (Manual) Nucleated RBC % Seg Neutrophils # Seg Neutrophils # Man 10.2 H Lymphocytes # (Manual) Monocytes # (Manual) 1.3 H Eosinophils # (Manual) PT INR APTT Fibrinogen POC ABG pH ABG pH POC ABG pCO2 POC ABG pO2 ABG pO2 ABG HCO3 ABG O2 Saturation ABG Base Excess ABG Hemoglobin Oxyhemoglobin Sodium 135 L Potassium Chloride 94.7 L Carbon Dioxide 21 L BUN 107 H Creatinine 4.5 H Glucose 286 H POC Glucose 263 H Uric Acid Calcium 7.9 L Phosphorus 6.30 H Magnesium Iron TIBC AST ALT 104 H Total Creatine Kinase CK-MB (CK-2) Troponin T NT-Pro-B Natriuret Pep Total Protein 6.0 L Albumin 2.7 L Triglycerides HDL Cholesterol Folate Urine WBC (Auto) Urine Creatinine Urine Total Protein Vancomycin Trough 06/02/19 06/02/19 06/03/19 18:17 23:55 05:30 WBC RBC Hgb Hct MCV MCH MCHC RDW Plt Count Lymph % (Auto) [place] % (Auto) Eos % (Auto) Lymph # [place] # Eos # Seg Neutrophils % Seg Neuts % (Manual) Lymphocytes % (Manual) Monocytes % (Manual) Eosinophils % (Manual) Nucleated RBC % Seg Neutrophils # Seg Neutrophils # Man Lymphocytes # (Manual) Monocytes # (Manual) Eosinophils # (Manual) PT INR APTT Fibrinogen POC ABG pH ABG pH POC ABG pCO2 POC ABG pO2 ABG pO2 ABG HCO3 ABG O2 Saturation ABG Base Excess ABG Hemoglobin Oxyhemoglobin Sodium Potassium Chloride 95.1 L Carbon Dioxide 21 L BUN 119 H Creatinine 4.1 H Glucose 330 H POC Glucose 276 H 244 H Uric Acid Calcium 8.1 L Phosphorus Magnesium Iron TIBC AST ALT 98 H Total Creatine Kinase CK-MB (CK-2) Troponin T NT-Pro-B Natriuret Pep Total Protein 5.8 L Albumin 2.8 L Triglycerides HDL Cholesterol Folate Urine WBC (Auto) Urine Creatinine Urine Total Protein Vancomycin Trough 06/03/19 06/03/19 06/03/19 05:30 06:04 09:42 WBC 12.8 H RBC 3.01 L Hgb 8.2 L Hct 25.4 L MCV MCH 27 L MCHC RDW 17.5 H Plt Count Lymph % (Auto) [place] % (Auto) Eos % (Auto) Lymph # [place] # Eos # Seg Neutrophils % Seg Neuts % (Manual) 78.0 H Lymphocytes % (Manual) 10.0 L Monocytes % (Manual) 12.0 H Eosinophils % (Manual) Nucleated RBC % Seg Neutrophils # Seg Neutrophils # Man 10.0 H Lymphocytes # (Manual) Monocytes # (Manual) 1.5 H Eosinophils # (Manual) PT INR APTT Fibrinogen POC ABG pH ABG pH POC ABG pCO2 POC ABG pO2 ABG pO2 ABG HCO3 ABG O2 Saturation ABG Base Excess ABG Hemoglobin Oxyhemoglobin Sodium Potassium Chloride Carbon Dioxide BUN 106 H Creatinine Glucose POC Glucose 254 H Uric Acid Calcium Phosphorus Magnesium Iron TIBC AST ALT Total Creatine Kinase CK-MB (CK-2) Troponin T NT-Pro-B Natriuret Pep Total Protein Albumin Triglycerides HDL Cholesterol Folate Urine WBC (Auto) Urine Creatinine Urine Total Protein Vancomycin Trough 06/03/19 06/03/19 06/03/19 12:52 17:25 23:37 WBC RBC Hgb Hct MCV MCH MCHC RDW Plt Count Lymph % (Auto) [place] % (Auto) Eos % (Auto) Lymph # [place] # Eos # Seg Neutrophils % Seg Neuts % (Manual) Lymphocytes % (Manual) Monocytes % (Manual) Eosinophils % (Manual) Nucleated RBC % Seg Neutrophils # Seg Neutrophils # Man Lymphocytes # (Manual) Monocytes # (Manual) Eosinophils # (Manual) PT INR APTT Fibrinogen POC ABG pH ABG pH POC ABG pCO2 POC ABG pO2 ABG pO2 ABG HCO3 ABG O2 Saturation ABG Base Excess ABG Hemoglobin Oxyhemoglobin Sodium Potassium Chloride Carbon Dioxide BUN Creatinine Glucose POC Glucose 274 H 285 H 310 H Uric Acid Calcium Phosphorus Magnesium Iron TIBC AST ALT Total Creatine Kinase CK-MB (CK-2) Troponin T NT-Pro-B Natriuret Pep Total Protein Albumin Triglycerides HDL Cholesterol Folate Urine WBC (Auto) Urine Creatinine Urine Total Protein Vancomycin Trough 06/04/19 06/04/19 06/04/19 04:57 05:03 11:50 WBC RBC Hgb Hct MCV MCH MCHC RDW Plt Count Lymph % (Auto) [place] % (Auto) Eos % (Auto) Lymph # [place] # Eos # Seg Neutrophils % Seg Neuts % (Manual) Lymphocytes % (Manual) Monocytes % (Manual) Eosinophils % (Manual) Nucleated RBC % Seg Neutrophils # Seg Neutrophils # Man Lymphocytes # (Manual) Monocytes # (Manual) Eosinophils # (Manual) PT INR APTT Fibrinogen POC ABG pH 7.488 H ABG pH POC ABG pCO2 POC ABG pO2 ABG pO2 ABG HCO3 ABG O2 Saturation ABG Base Excess ABG Hemoglobin Oxyhemoglobin Sodium Potassium Chloride Carbon Dioxide BUN Creatinine Glucose POC Glucose 275 H 279 H Uric Acid Calcium Phosphorus Magnesium Iron TIBC AST ALT Total Creatine Kinase CK-MB (CK-2) Troponin T NT-Pro-B Natriuret Pep Total Protein Albumin Triglycerides HDL Cholesterol Folate Urine WBC (Auto) Urine Creatinine Urine Total Protein Vancomycin Trough 06/04/19 06/04/19 06/04/19 18:32 22:03 23:55 WBC RBC Hgb Hct MCV MCH MCHC RDW Plt Count Lymph % (Auto) [place] % (Auto) Eos % (Auto) Lymph # [place] # Eos # Seg Neutrophils % Seg Neuts % (Manual) Lymphocytes % (Manual) Monocytes % (Manual) Eosinophils % (Manual) Nucleated RBC % Seg Neutrophils # Seg Neutrophils # Man Lymphocytes # (Manual) Monocytes # (Manual) Eosinophils # (Manual) PT INR APTT Fibrinogen POC ABG pH ABG pH POC ABG pCO2 POC ABG pO2 ABG pO2 ABG HCO3 ABG O2 Saturation ABG Base Excess ABG Hemoglobin Oxyhemoglobin Sodium Potassium Chloride Carbon Dioxide BUN Creatinine Glucose POC Glucose 267 H 307 H 292 H Uric Acid Calcium Phosphorus Magnesium Iron TIBC AST ALT Total Creatine Kinase CK-MB (CK-2) Troponin T NT-Pro-B Natriuret Pep Total Protein Albumin Triglycerides HDL Cholesterol Folate Urine WBC (Auto) Urine Creatinine Urine Total Protein Vancomycin Trough 06/05/19 06/05/19 06/05/19 03:52 06:41 12:29 WBC RBC Hgb Hct MCV MCH MCHC RDW Plt Count Lymph % (Auto) [place] % (Auto) Eos % (Auto) Lymph # [place] # Eos # Seg Neutrophils % Seg Neuts % (Manual) Lymphocytes % (Manual) Monocytes % (Manual) Eosinophils % (Manual) Nucleated RBC % Seg Neutrophils # Seg Neutrophils # Man Lymphocytes # (Manual) Monocytes # (Manual) Eosinophils # (Manual) PT INR APTT Fibrinogen POC ABG pH 7.462 H ABG pH POC ABG pCO2 POC ABG pO2 ABG pO2 ABG HCO3 ABG O2 Saturation ABG Base Excess ABG Hemoglobin Oxyhemoglobin Sodium Potassium Chloride Carbon Dioxide BUN Creatinine Glucose POC Glucose 369 H 265 H Uric Acid Calcium Phosphorus Magnesium Iron TIBC AST ALT Total Creatine Kinase CK-MB (CK-2) Troponin T NT-Pro-B Natriuret Pep Total Protein Albumin Triglycerides HDL Cholesterol Folate Urine WBC (Auto) Urine Creatinine Urine Total Protein Vancomycin Trough 06/05/19 06/05/19 06/05/19 18:20 21:42 23:21 WBC RBC Hgb Hct MCV MCH MCHC RDW Plt Count Lymph % (Auto) [place] % (Auto) Eos % (Auto) Lymph # [place] # Eos # Seg Neutrophils % Seg Neuts % (Manual) Lymphocytes % (Manual) Monocytes % (Manual) Eosinophils % (Manual) Nucleated RBC % Seg Neutrophils # Seg Neutrophils # Man Lymphocytes # (Manual) Monocytes # (Manual) Eosinophils # (Manual) PT INR APTT Fibrinogen POC ABG pH ABG pH POC ABG pCO2 POC ABG pO2 ABG pO2 ABG HCO3 ABG O2 Saturation ABG Base Excess ABG Hemoglobin Oxyhemoglobin Sodium Potassium Chloride Carbon Dioxide BUN Creatinine Glucose POC Glucose 249 H 246 H 274 H Uric Acid Calcium Phosphorus Magnesium Iron TIBC AST ALT Total Creatine Kinase CK-MB (CK-2) Troponin T NT-Pro-B Natriuret Pep Total Protein Albumin Triglycerides HDL Cholesterol Folate Urine WBC (Auto) Urine Creatinine Urine Total Protein Vancomycin Trough 06/06/19 06/06/19 06/06/19 04:00 05:49 11:34 WBC 18.1 H RBC 3.53 L Hgb 9.5 L Hct 30.3 L MCV MCH 27 L MCHC 31 L RDW 19.5 H Plt Count Lymph % (Auto) [place] % (Auto) Eos % (Auto) Lymph # [place] # Eos # Seg Neutrophils % Seg Neuts % (Manual) 87.0 H Lymphocytes % (Manual) 3.0 L Monocytes % (Manual) 8.0 H Eosinophils % (Manual) Nucleated RBC % Seg Neutrophils # Seg Neutrophils # Man 15.7 H Lymphocytes # (Manual) 0.5 L Monocytes # (Manual) 1.4 H Eosinophils # (Manual) PT INR APTT Fibrinogen POC ABG pH ABG pH 7.472 H POC ABG pCO2 POC ABG pO2 ABG pO2 76.4 L ABG HCO3 28.1 H ABG O2 Saturation ABG Base Excess 4.3 H ABG Hemoglobin 12.5 L Oxyhemoglobin 93.8 L Sodium Potassium Chloride Carbon Dioxide BUN Creatinine Glucose POC Glucose 340 H Uric Acid Calcium Phosphorus Magnesium Iron TIBC AST ALT Total Creatine Kinase CK-MB (CK-2) Troponin T NT-Pro-B Natriuret Pep Total Protein Albumin Triglycerides HDL Cholesterol Folate Urine WBC (Auto) Urine Creatinine Urine Total Protein Vancomycin Trough 06/06/19 06/06/19 06/06/19 11:34 12:11 18:10 WBC RBC Hgb Hct MCV MCH MCHC RDW Plt Count Lymph % (Auto) [place] % (Auto) Eos % (Auto) Lymph # [place] # Eos # Seg Neutrophils % Seg Neuts % (Manual) Lymphocytes % (Manual) Monocytes % (Manual) Eosinophils % (Manual) Nucleated RBC % Seg Neutrophils # Seg Neutrophils # Man Lymphocytes # (Manual) Monocytes # (Manual) Eosinophils # (Manual) PT INR APTT Fibrinogen POC ABG pH ABG pH POC ABG pCO2 POC ABG pO2 ABG pO2 ABG HCO3 ABG O2 Saturation ABG Base Excess ABG Hemoglobin Oxyhemoglobin Sodium Potassium Chloride Carbon Dioxide BUN 70 H Creatinine Glucose 310 H POC Glucose 283 H 301 H Uric Acid Calcium 8.3 L Phosphorus 4.60 H Magnesium Iron TIBC AST ALT 75 H Total Creatine Kinase CK-MB (CK-2) Troponin T NT-Pro-B Natriuret Pep Total Protein 5.6 L Albumin 2.9 L Triglycerides HDL Cholesterol Folate Urine WBC (Auto) Urine Creatinine Urine Total Protein Vancomycin Trough 06/06/19 06/06/19 06/07/19 22:21 23:16 04:30 WBC RBC Hgb Hct MCV MCH MCHC RDW Plt Count Lymph % (Auto) [place] % (Auto) Eos % (Auto) Lymph # [place] # Eos # Seg Neutrophils % Seg Neuts % (Manual) Lymphocytes % (Manual) Monocytes % (Manual) Eosinophils % (Manual) Nucleated RBC % Seg Neutrophils # Seg Neutrophils # Man Lymphocytes # (Manual) Monocytes # (Manual) Eosinophils # (Manual) PT INR APTT Fibrinogen POC ABG pH ABG pH 7.480 H POC ABG pCO2 POC ABG pO2 ABG pO2 77.0 L ABG HCO3 27.2 H ABG O2 Saturation ABG Base Excess 3.5 H ABG Hemoglobin 7.1 L Oxyhemoglobin 94.2 L Sodium Potassium Chloride Carbon Dioxide BUN Creatinine Glucose POC Glucose 289 H 343 H Uric Acid Calcium Phosphorus Magnesium Iron TIBC AST ALT Total Creatine Kinase CK-MB (CK-2) Troponin T NT-Pro-B Natriuret Pep Total Protein Albumin Triglycerides HDL Cholesterol Folate Urine WBC (Auto) Urine Creatinine Urine Total Protein Vancomycin Trough 06/07/19 06/07/19 06/07/19 05:15 12:52 18:41 WBC RBC Hgb Hct MCV MCH MCHC RDW Plt Count Lymph % (Auto) [place] % (Auto) Eos % (Auto) Lymph # [place] # Eos # Seg Neutrophils % Seg Neuts % (Manual) Lymphocytes % (Manual) Monocytes % (Manual) Eosinophils % (Manual) Nucleated RBC % Seg Neutrophils # Seg Neutrophils # Man Lymphocytes # (Manual) Monocytes # (Manual) Eosinophils # (Manual) PT INR APTT Fibrinogen POC ABG pH ABG pH POC ABG pCO2 POC ABG pO2 ABG pO2 ABG HCO3 ABG O2 Saturation ABG Base Excess ABG Hemoglobin Oxyhemoglobin Sodium Potassium Chloride Carbon Dioxide BUN Creatinine Glucose POC Glucose 307 H 226 H 187 H Uric Acid Calcium Phosphorus Magnesium Iron TIBC AST ALT Total Creatine Kinase CK-MB (CK-2) Troponin T NT-Pro-B Natriuret Pep Total Protein Albumin Triglycerides HDL Cholesterol Folate Urine WBC (Auto) Urine Creatinine Urine Total Protein Vancomycin Trough 06/07/19 06/07/19 06/08/19 22:54 23:46 04:20 WBC 16.0 H RBC Hgb 10.0 L Hct 32.1 L MCV MCH 27 L MCHC 31 L RDW 19.4 H Plt Count Lymph % (Auto) [place] % (Auto) Eos % (Auto) Lymph # [place] # Eos # Seg Neutrophils % Seg Neuts % (Manual) 87.0 H Lymphocytes % (Manual) 7.0 L Monocytes % (Manual) Eosinophils % (Manual) Nucleated RBC % Seg Neutrophils # Seg Neutrophils # Man 13.9 H Lymphocytes # (Manual) 1.1 L Monocytes # (Manual) 1.0 H Eosinophils # (Manual) PT INR APTT Fibrinogen POC ABG pH ABG pH POC ABG pCO2 POC ABG pO2 ABG pO2 ABG HCO3 ABG O2 Saturation ABG Base Excess ABG Hemoglobin Oxyhemoglobin Sodium Potassium Chloride Carbon Dioxide BUN Creatinine Glucose POC Glucose 199 H 172 H Uric Acid Calcium Phosphorus Magnesium Iron TIBC AST ALT Total Creatine Kinase CK-MB (CK-2) Troponin T NT-Pro-B Natriuret Pep Total Protein Albumin Triglycerides HDL Cholesterol Folate Urine WBC (Auto) Urine Creatinine Urine Total Protein Vancomycin Trough 06/08/19 06/08/19 06/08/19 04:20 05:15 11:31 WBC RBC Hgb Hct MCV MCH MCHC RDW Plt Count Lymph % (Auto) [place] % (Auto) Eos % (Auto) Lymph # [place] # Eos # Seg Neutrophils % Seg Neuts % (Manual) Lymphocytes % (Manual) Monocytes % (Manual) Eosinophils % (Manual) Nucleated RBC % Seg Neutrophils # Seg Neutrophils # Man Lymphocytes # (Manual) Monocytes # (Manual) Eosinophils # (Manual) PT INR APTT Fibrinogen POC ABG pH ABG pH POC ABG pCO2 POC ABG pO2 ABG pO2 ABG HCO3 ABG O2 Saturation ABG Base Excess ABG Hemoglobin Oxyhemoglobin Sodium 146 H D Potassium Chloride Carbon Dioxide BUN 77 H Creatinine Glucose 205 H POC Glucose 209 H 181 H Uric Acid Calcium Phosphorus Magnesium Iron TIBC AST ALT 66 H Total Creatine Kinase CK-MB (CK-2) Troponin T NT-Pro-B Natriuret Pep Total Protein 5.5 L Albumin 2.9 L Triglycerides HDL Cholesterol Folate Urine WBC (Auto) Urine Creatinine Urine Total Protein Vancomycin Trough 06/08/19 06/08/19 06/09/19 17:28 23:24 05:20 WBC RBC Hgb Hct MCV MCH MCHC RDW Plt Count Lymph % (Auto) [place] % (Auto) Eos % (Auto) Lymph # [place] # Eos # Seg Neutrophils % Seg Neuts % (Manual) Lymphocytes % (Manual) Monocytes % (Manual) Eosinophils % (Manual) Nucleated RBC % Seg Neutrophils # Seg Neutrophils # Man Lymphocytes # (Manual) Monocytes # (Manual) Eosinophils # (Manual) PT INR APTT Fibrinogen POC ABG pH ABG pH POC ABG pCO2 POC ABG pO2 ABG pO2 ABG HCO3 ABG O2 Saturation ABG Base Excess ABG Hemoglobin Oxyhemoglobin Sodium Potassium Chloride Carbon Dioxide BUN Creatinine Glucose POC Glucose 215 H 200 H 173 H Uric Acid Calcium Phosphorus Magnesium Iron TIBC AST ALT Total Creatine Kinase CK-MB (CK-2) Troponin T NT-Pro-B Natriuret Pep Total Protein Albumin Triglycerides HDL Cholesterol Folate Urine WBC (Auto) Urine Creatinine Urine Total Protein Vancomycin Trough 06/09/19 06/09/19 06/09/19 12:07 18:32 23:51 WBC RBC Hgb Hct MCV MCH MCHC RDW Plt Count Lymph % (Auto) [place] % (Auto) Eos % (Auto) Lymph # [place] # Eos # Seg Neutrophils % Seg Neuts % (Manual) Lymphocytes % (Manual) Monocytes % (Manual) Eosinophils % (Manual) Nucleated RBC % Seg Neutrophils # Seg Neutrophils # Man Lymphocytes # (Manual) Monocytes # (Manual) Eosinophils # (Manual) PT INR APTT Fibrinogen POC ABG pH ABG pH POC ABG pCO2 POC ABG pO2 ABG pO2 ABG HCO3 ABG O2 Saturation ABG Base Excess ABG Hemoglobin Oxyhemoglobin Sodium Potassium Chloride Carbon Dioxide BUN Creatinine Glucose POC Glucose 117 H 169 H 147 H Uric Acid Calcium Phosphorus Magnesium Iron TIBC AST ALT Total Creatine Kinase CK-MB (CK-2) Troponin T NT-Pro-B Natriuret Pep Total Protein Albumin Triglycerides HDL Cholesterol Folate Urine WBC (Auto) Urine Creatinine Urine Total Protein Vancomycin Trough 06/10/19 06/10/19 06/10/19 05:45 05:45 06:01 WBC 14.6 H RBC Hgb 9.9 L Hct 32.2 L MCV MCH 27 L MCHC 31 L RDW 19.6 H Plt Count Lymph % (Auto) 10.5 L [place] % (Auto) 9.4 H Eos % (Auto) Lymph # [place] # 1.4 H Eos # Seg Neutrophils % 79.9 H Seg Neuts % (Manual) Lymphocytes % (Manual) Monocytes % (Manual) Eosinophils % (Manual) Nucleated RBC % Seg Neutrophils # 11.7 H Seg Neutrophils # Man Lymphocytes # (Manual) Monocytes # (Manual) Eosinophils # (Manual) PT INR APTT Fibrinogen POC ABG pH ABG pH POC ABG pCO2 POC ABG pO2 ABG pO2 ABG HCO3 ABG O2 Saturation ABG Base Excess ABG Hemoglobin Oxyhemoglobin Sodium 150 H Potassium Chloride 108.3 H Carbon Dioxide BUN 49 H Creatinine Glucose 172 H POC Glucose 165 H Uric Acid Calcium Phosphorus Magnesium 1.40 L Iron TIBC AST ALT Total Creatine Kinase CK-MB (CK-2) Troponin T NT-Pro-B Natriuret Pep Total Protein Albumin Triglycerides HDL Cholesterol Folate Urine WBC (Auto) Urine Creatinine Urine Total Protein Vancomycin Trough 06/10/19 06/10/19 06/11/19 12:11 18:30 00:02 WBC RBC Hgb Hct MCV MCH MCHC RDW Plt Count Lymph % (Auto) [place] % (Auto) Eos % (Auto) Lymph # [place] # Eos # Seg Neutrophils % Seg Neuts % (Manual) Lymphocytes % (Manual) Monocytes % (Manual) Eosinophils % (Manual) Nucleated RBC % Seg Neutrophils # Seg Neutrophils # Man Lymphocytes # (Manual) Monocytes # (Manual) Eosinophils # (Manual) PT INR APTT Fibrinogen POC ABG pH ABG pH POC ABG pCO2 POC ABG pO2 ABG pO2 ABG HCO3 ABG O2 Saturation ABG Base Excess ABG Hemoglobin Oxyhemoglobin Sodium Potassium Chloride Carbon Dioxide BUN Creatinine Glucose POC Glucose 150 H 154 H 130 H Uric Acid Calcium Phosphorus Magnesium Iron TIBC AST ALT Total Creatine Kinase CK-MB (CK-2) Troponin T NT-Pro-B Natriuret Pep Total Protein Albumin Triglycerides HDL Cholesterol Folate Urine WBC (Auto) Urine Creatinine Urine Total Protein Vancomycin Trough 06/11/19 06/11/19 06/11/19 05:33 08:34 12:33 WBC RBC Hgb Hct MCV MCH MCHC RDW Plt Count Lymph % (Auto) [place] % (Auto) Eos % (Auto) Lymph # [place] # Eos # Seg Neutrophils % Seg Neuts % (Manual) Lymphocytes % (Manual) Monocytes % (Manual) Eosinophils % (Manual) Nucleated RBC % Seg Neutrophils # Seg Neutrophils # Man Lymphocytes # (Manual) Monocytes # (Manual) Eosinophils # (Manual) PT INR APTT Fibrinogen POC ABG pH ABG pH POC ABG pCO2 POC ABG pO2 ABG pO2 ABG HCO3 ABG O2 Saturation ABG Base Excess ABG Hemoglobin Oxyhemoglobin Sodium 154 H Potassium Chloride 111.6 H Carbon Dioxide BUN 41 H Creatinine Glucose 147 H POC Glucose 183 H 185 H Uric Acid Calcium Phosphorus Magnesium Iron TIBC AST ALT Total Creatine Kinase CK-MB (CK-2) Troponin T NT-Pro-B Natriuret Pep Total Protein Albumin Triglycerides HDL Cholesterol Folate Urine WBC (Auto) Urine Creatinine Urine Total Protein Vancomycin Trough 06/11/19 06/11/19 06/12/19 18:22 23:46 03:21 WBC 11.9 H RBC 3.61 L Hgb 9.9 L Hct 31.7 L MCV MCH 27 L MCHC 31 L RDW 19.3 H Plt Count Lymph % (Auto) 10.6 L [place] % (Auto) 8.6 H Eos % (Auto) Lymph # [place] # 1.0 H Eos # Seg Neutrophils % 80.6 H Seg Neuts % (Manual) Lymphocytes % (Manual) Monocytes % (Manual) Eosinophils % (Manual) Nucleated RBC % Seg Neutrophils # 9.6 H Seg Neutrophils # Man Lymphocytes # (Manual) Monocytes # (Manual) Eosinophils # (Manual) PT INR APTT Fibrinogen POC ABG pH ABG pH POC ABG pCO2 POC ABG pO2 ABG pO2 ABG HCO3 ABG O2 Saturation ABG Base Excess ABG Hemoglobin Oxyhemoglobin Sodium Potassium Chloride Carbon Dioxide BUN Creatinine Glucose POC Glucose 158 H 182 H Uric Acid Calcium Phosphorus Magnesium Iron TIBC AST ALT Total Creatine Kinase CK-MB (CK-2) Troponin T NT-Pro-B Natriuret Pep Total Protein Albumin Triglycerides HDL Cholesterol Folate Urine WBC (Auto) Urine Creatinine Urine Total Protein Vancomycin Trough 06/12/19 06/12/19 06/12/19 03:21 06:04 11:28 WBC RBC Hgb Hct MCV MCH MCHC RDW Plt Count Lymph % (Auto) [place] % (Auto) Eos % (Auto) Lymph # [place] # Eos # Seg Neutrophils % Seg Neuts % (Manual) Lymphocytes % (Manual) Monocytes % (Manual) Eosinophils % (Manual) Nucleated RBC % Seg Neutrophils # Seg Neutrophils # Man Lymphocytes # (Manual) Monocytes # (Manual) Eosinophils # (Manual) PT INR APTT Fibrinogen POC ABG pH ABG pH POC ABG pCO2 POC ABG pO2 ABG pO2 ABG HCO3 ABG O2 Saturation ABG Base Excess ABG Hemoglobin Oxyhemoglobin Sodium 148 H Potassium Chloride 107.3 H Carbon Dioxide BUN 34 H Creatinine 0.7 L Glucose 194 H POC Glucose 133 H 167 H Uric Acid Calcium Phosphorus Magnesium 1.40 L Iron TIBC AST ALT Total Creatine Kinase CK-MB (CK-2) Troponin T NT-Pro-B Natriuret Pep Total Protein Albumin Triglycerides HDL Cholesterol Folate Urine WBC (Auto) Urine Creatinine Urine Total Protein Vancomycin Trough 06/12/19 06/12/19 06/13/19 18:47 21:27 00:04 WBC RBC Hgb Hct MCV MCH MCHC RDW Plt Count Lymph % (Auto) [place] % (Auto) Eos % (Auto) Lymph # [place] # Eos # Seg Neutrophils % Seg Neuts % (Manual) Lymphocytes % (Manual) Monocytes % (Manual) Eosinophils % (Manual) Nucleated RBC % Seg Neutrophils # Seg Neutrophils # Man Lymphocytes # (Manual) Monocytes # (Manual) Eosinophils # (Manual) PT INR APTT Fibrinogen POC ABG pH ABG pH POC ABG pCO2 POC ABG pO2 ABG pO2 ABG HCO3 ABG O2 Saturation ABG Base Excess ABG Hemoglobin Oxyhemoglobin Sodium Potassium Chloride Carbon Dioxide BUN Creatinine Glucose POC Glucose 210 H 263 H 248 H Uric Acid Calcium Phosphorus Magnesium Iron TIBC AST ALT Total Creatine Kinase CK-MB (CK-2) Troponin T NT-Pro-B Natriuret Pep Total Protein Albumin Triglycerides HDL Cholesterol Folate Urine WBC (Auto) Urine Creatinine Urine Total Protein Vancomycin Trough 06/13/19 06/13/19 06/13/19 04:32 05:46 13:30 WBC RBC Hgb Hct MCV MCH MCHC RDW Plt Count Lymph % (Auto) [place] % (Auto) Eos % (Auto) Lymph # [place] # Eos # Seg Neutrophils % Seg Neuts % (Manual) Lymphocytes % (Manual) Monocytes % (Manual) Eosinophils % (Manual) Nucleated RBC % Seg Neutrophils # Seg Neutrophils # Man Lymphocytes # (Manual) Monocytes # (Manual) Eosinophils # (Manual) PT INR APTT Fibrinogen POC ABG pH ABG pH POC ABG pCO2 POC ABG pO2 ABG pO2 ABG HCO3 ABG O2 Saturation ABG Base Excess ABG Hemoglobin Oxyhemoglobin Sodium Potassium Chloride Carbon Dioxide BUN 27 H Creatinine 0.7 L Glucose 253 H POC Glucose 201 H 241 H Uric Acid Calcium Phosphorus Magnesium Iron TIBC AST ALT Total Creatine Kinase CK-MB (CK-2) Troponin T NT-Pro-B Natriuret Pep Total Protein Albumin Triglycerides HDL Cholesterol Folate Urine WBC (Auto) Urine Creatinine Urine Total Protein Vancomycin Trough 06/13/19 06/13/19 06/14/19 17:33 23:49 04:50 WBC RBC Hgb Hct MCV MCH MCHC RDW Plt Count Lymph % (Auto) [place] % (Auto) Eos % (Auto) Lymph # [place] # Eos # Seg Neutrophils % Seg Neuts % (Manual) Lymphocytes % (Manual) Monocytes % (Manual) Eosinophils % (Manual) Nucleated RBC % Seg Neutrophils # Seg Neutrophils # Man Lymphocytes # (Manual) Monocytes # (Manual) Eosinophils # (Manual) PT INR APTT Fibrinogen POC ABG pH ABG pH POC ABG pCO2 POC ABG pO2 ABG pO2 ABG HCO3 ABG O2 Saturation ABG Base Excess ABG Hemoglobin Oxyhemoglobin Sodium Potassium Chloride Carbon Dioxide BUN 37 H Creatinine Glucose 256 H POC Glucose 264 H 236 H Uric Acid Calcium Phosphorus Magnesium Iron TIBC AST ALT Total Creatine Kinase CK-MB (CK-2) Troponin T NT-Pro-B Natriuret Pep Total Protein Albumin Triglycerides HDL Cholesterol Folate Urine WBC (Auto) Urine Creatinine Urine Total Protein Vancomycin Trough 06/14/19 06/14/19 06/14/19 05:26 12:31 18:32 WBC RBC Hgb Hct MCV MCH MCHC RDW Plt Count Lymph % (Auto) [place] % (Auto) Eos % (Auto) Lymph # [place] # Eos # Seg Neutrophils % Seg Neuts % (Manual) Lymphocytes % (Manual) Monocytes % (Manual) Eosinophils % (Manual) Nucleated RBC % Seg Neutrophils # Seg Neutrophils # Man Lymphocytes # (Manual) Monocytes # (Manual) Eosinophils # (Manual) PT INR APTT Fibrinogen POC ABG pH ABG pH POC ABG pCO2 POC ABG pO2 ABG pO2 ABG HCO3 ABG O2 Saturation ABG Base Excess ABG Hemoglobin Oxyhemoglobin Sodium Potassium Chloride Carbon Dioxide BUN Creatinine Glucose POC Glucose 239 H 116 H 247 H Uric Acid Calcium Phosphorus Magnesium Iron TIBC AST ALT Total Creatine Kinase CK-MB (CK-2) Troponin T NT-Pro-B Natriuret Pep Total Protein Albumin Triglycerides HDL Cholesterol Folate Urine WBC (Auto) Urine Creatinine Urine Total Protein Vancomycin Trough 06/14/19 06/15/19 06/15/19 23:57 04:05 05:55 WBC RBC Hgb Hct MCV MCH MCHC RDW Plt Count Lymph % (Auto) [place] % (Auto) Eos % (Auto) Lymph # [place] # Eos # Seg Neutrophils % Seg Neuts % (Manual) Lymphocytes % (Manual) Monocytes % (Manual) Eosinophils % (Manual) Nucleated RBC % Seg Neutrophils # Seg Neutrophils # Man Lymphocytes # (Manual) Monocytes # (Manual) Eosinophils # (Manual) PT INR APTT Fibrinogen POC ABG pH ABG pH POC ABG pCO2 POC ABG pO2 ABG pO2 ABG HCO3 ABG O2 Saturation ABG Base Excess ABG Hemoglobin Oxyhemoglobin Sodium Potassium Chloride Carbon Dioxide BUN 46 H Creatinine 0.7 L Glucose 265 H POC Glucose 206 H 265 H Uric Acid Calcium Phosphorus Magnesium Iron TIBC AST ALT Total Creatine Kinase CK-MB (CK-2) Troponin T NT-Pro-B Natriuret Pep Total Protein Albumin Triglycerides HDL Cholesterol Folate Urine WBC (Auto) Urine Creatinine Urine Total Protein Vancomycin Trough 06/15/19 06/15/19 06/15/19 12:08 18:45 23:41 WBC RBC Hgb Hct MCV MCH MCHC RDW Plt Count Lymph % (Auto) [place] % (Auto) Eos % (Auto) Lymph # [place] # Eos # Seg Neutrophils % Seg Neuts % (Manual) Lymphocytes % (Manual) Monocytes % (Manual) Eosinophils % (Manual) Nucleated RBC % Seg Neutrophils # Seg Neutrophils # Man Lymphocytes # (Manual) Monocytes # (Manual) Eosinophils # (Manual) PT INR APTT Fibrinogen POC ABG pH ABG pH POC ABG pCO2 POC ABG pO2 ABG pO2 ABG HCO3 ABG O2 Saturation ABG Base Excess ABG Hemoglobin Oxyhemoglobin Sodium Potassium Chloride Carbon Dioxide BUN Creatinine Glucose POC Glucose 224 H 177 H 193 H Uric Acid Calcium Phosphorus Magnesium Iron TIBC AST ALT Total Creatine Kinase CK-MB (CK-2) Troponin T NT-Pro-B Natriuret Pep Total Protein Albumin Triglycerides HDL Cholesterol Folate Urine WBC (Auto) Urine Creatinine Urine Total Protein Vancomycin Trough 06/16/19 06/16/19 06/16/19 05:00 05:00 05:40 WBC 11.9 H RBC 3.24 L Hgb 9.0 L Hct 29.0 L MCV MCH MCHC 31 L RDW 18.6 H Plt Count 111 L Lymph % (Auto) [place] % (Auto) Eos % (Auto) Lymph # [place] # Eos # Seg Neutrophils % Seg Neuts % (Manual) 92.0 H Lymphocytes % (Manual) 2.0 L Monocytes % (Manual) Eosinophils % (Manual) Nucleated RBC % Seg Neutrophils # Seg Neutrophils # Man 10.9 H Lymphocytes # (Manual) 0.2 L Monocytes # (Manual) Eosinophils # (Manual) PT INR APTT Fibrinogen POC ABG pH ABG pH POC ABG pCO2 POC ABG pO2 ABG pO2 ABG HCO3 ABG O2 Saturation ABG Base Excess ABG Hemoglobin Oxyhemoglobin Sodium Potassium Chloride Carbon Dioxide 33 H BUN 49 H Creatinine 0.7 L Glucose 264 H POC Glucose 247 H Uric Acid Calcium Phosphorus Magnesium Iron TIBC AST ALT Total Creatine Kinase CK-MB (CK-2) Troponin T NT-Pro-B Natriuret Pep Total Protein Albumin Triglycerides HDL Cholesterol Folate Urine WBC (Auto) Urine Creatinine Urine Total Protein Vancomycin Trough 06/16/19 06/16/19 06/16/19 12:03 17:11 18:11 WBC RBC Hgb Hct MCV MCH MCHC RDW Plt Count Lymph % (Auto) [place] % (Auto) Eos % (Auto) Lymph # [place] # Eos # Seg Neutrophils % Seg Neuts % (Manual) Lymphocytes % (Manual) Monocytes % (Manual) Eosinophils % (Manual) Nucleated RBC % Seg Neutrophils # Seg Neutrophils # Man Lymphocytes # (Manual) Monocytes # (Manual) Eosinophils # (Manual) PT INR APTT Fibrinogen POC ABG pH ABG pH 7.289 L POC ABG pCO2 POC ABG pO2 ABG pO2 399.3 H ABG HCO3 30.1 H ABG O2 Saturation 99.6 H ABG Base Excess ABG Hemoglobin 8.6 L Oxyhemoglobin Sodium Potassium Chloride Carbon Dioxide BUN Creatinine Glucose POC Glucose 252 H 254 H Uric Acid Calcium Phosphorus Magnesium Iron TIBC AST ALT Total Creatine Kinase CK-MB (CK-2) Troponin T NT-Pro-B Natriuret Pep Total Protein Albumin Triglycerides HDL Cholesterol Folate Urine WBC (Auto) Urine Creatinine Urine Total Protein Vancomycin Trough 06/16/19 06/17/19 06/17/19 23:16 05:30 05:53 WBC RBC Hgb Hct MCV MCH MCHC RDW Plt Count Lymph % (Auto) [place] % (Auto) Eos % (Auto) Lymph # [place] # Eos # Seg Neutrophils % Seg Neuts % (Manual) Lymphocytes % (Manual) Monocytes % (Manual) Eosinophils % (Manual) Nucleated RBC % Seg Neutrophils # Seg Neutrophils # Man Lymphocytes # (Manual) Monocytes # (Manual) Eosinophils # (Manual) PT INR APTT Fibrinogen POC ABG pH ABG pH POC ABG pCO2 POC ABG pO2 ABG pO2 ABG HCO3 ABG O2 Saturation ABG Base Excess ABG Hemoglobin Oxyhemoglobin Sodium 147 H Potassium Chloride Carbon Dioxide 32 H BUN 60 H Creatinine Glucose 205 H POC Glucose 238 H 211 H Uric Acid Calcium Phosphorus Magnesium Iron TIBC AST ALT Total Creatine Kinase CK-MB (CK-2) Troponin T NT-Pro-B Natriuret Pep Total Protein Albumin Triglycerides HDL Cholesterol Folate Urine WBC (Auto) Urine Creatinine Urine Total Protein Vancomycin Trough 06/17/19 06/17/19 06/17/19 09:50 12:27 12:45 WBC RBC 2.79 L Hgb 8.2 L Hct 24.6 L MCV MCH MCHC RDW 18.5 H Plt Count 95 L Lymph % (Auto) [place] % (Auto) Eos % (Auto) Lymph # [place] # Eos # Seg Neutrophils % Seg Neuts % (Manual) Lymphocytes % (Manual) Monocytes % (Manual) Eosinophils % (Manual) Nucleated RBC % Seg Neutrophils # Seg Neutrophils # Man Lymphocytes # (Manual) Monocytes # (Manual) Eosinophils # (Manual) PT INR APTT Fibrinogen 194 L POC ABG pH ABG pH POC ABG pCO2 POC ABG pO2 ABG pO2 ABG HCO3 ABG O2 Saturation ABG Base Excess ABG Hemoglobin Oxyhemoglobin Sodium Potassium Chloride Carbon Dioxide BUN Creatinine Glucose POC Glucose 224 H Uric Acid Calcium Phosphorus Magnesium Iron TIBC AST ALT Total Creatine Kinase CK-MB (CK-2) Troponin T NT-Pro-B Natriuret Pep Total Protein Albumin Triglycerides HDL Cholesterol Folate Urine WBC (Auto) Urine Creatinine Urine Total Protein Vancomycin Trough 06/17/19 06/17/19 06/17/19 18:41 22:00 23:23 WBC RBC Hgb Hct MCV MCH MCHC RDW Plt Count Lymph % (Auto) [place] % (Auto) Eos % (Auto) Lymph # [place] # Eos # Seg Neutrophils % Seg Neuts % (Manual) Lymphocytes % (Manual) Monocytes % (Manual) Eosinophils % (Manual) Nucleated RBC % Seg Neutrophils # Seg Neutrophils # Man Lymphocytes # (Manual) Monocytes # (Manual) Eosinophils # (Manual) PT INR APTT Fibrinogen POC ABG pH ABG pH POC ABG pCO2 POC ABG pO2 ABG pO2 ABG HCO3 ABG O2 Saturation ABG Base Excess ABG Hemoglobin Oxyhemoglobin Sodium Potassium Chloride Carbon Dioxide BUN Creatinine Glucose POC Glucose 198 H 166 H 171 H Uric Acid Calcium Phosphorus Magnesium Iron TIBC AST ALT Total Creatine Kinase CK-MB (CK-2) Troponin T NT-Pro-B Natriuret Pep Total Protein Albumin Triglycerides HDL Cholesterol Folate Urine WBC (Auto) Urine Creatinine Urine Total Protein Vancomycin Trough 06/17/19 06/18/19 06/18/19 Unknown 03:50 04:25 WBC RBC Hgb Hct MCV MCH MCHC RDW Plt Count Lymph % (Auto) [place] % (Auto) Eos % (Auto) Lymph # [place] # Eos # Seg Neutrophils % Seg Neuts % (Manual) Lymphocytes % (Manual) Monocytes % (Manual) Eosinophils % (Manual) Nucleated RBC % Seg Neutrophils # Seg Neutrophils # Man Lymphocytes # (Manual) Monocytes # (Manual) Eosinophils # (Manual) PT INR APTT Fibrinogen POC ABG pH ABG pH 7.564 H 7.499 H POC ABG pCO2 POC ABG pO2 ABG pO2 238.6 H 130.8 H ABG HCO3 33.6 H 32.5 H ABG O2 Saturation 99.4 H ABG Base Excess 10.6 H 8.5 H ABG Hemoglobin 7.9 L 8.8 L Oxyhemoglobin Sodium 151 H Potassium 3.4 L Chloride Carbon Dioxide BUN 66 H Creatinine Glucose 189 H POC Glucose Uric Acid Calcium Phosphorus Magnesium Iron TIBC AST ALT Total Creatine Kinase CK-MB (CK-2) Troponin T NT-Pro-B Natriuret Pep Total Protein Albumin Triglycerides HDL Cholesterol Folate Urine WBC (Auto) Urine Creatinine Urine Total Protein Vancomycin Trough 06/18/19 06/18/19 06/18/19 05:25 05:27 11:50 WBC RBC 2.61 L Hgb 7.4 L Hct 22.9 L MCV MCH MCHC RDW 19.9 H Plt Count 81 L Lymph % (Auto) 12.9 L [place] % (Auto) 7.7 H Eos % (Auto) Lymph # 1.1 L [place] # Eos # Seg Neutrophils % 77.4 H Seg Neuts % (Manual) Lymphocytes % (Manual) Monocytes % (Manual) Eosinophils % (Manual) Nucleated RBC % Seg Neutrophils # Seg Neutrophils # Man Lymphocytes # (Manual) Monocytes # (Manual) Eosinophils # (Manual) PT INR APTT Fibrinogen POC ABG pH ABG pH POC ABG pCO2 POC ABG pO2 ABG pO2 ABG HCO3 ABG O2 Saturation ABG Base Excess ABG Hemoglobin Oxyhemoglobin Sodium Potassium Chloride Carbon Dioxide BUN Creatinine Glucose POC Glucose 186 H 263 H Uric Acid Calcium Phosphorus Magnesium Iron TIBC AST ALT Total Creatine Kinase CK-MB (CK-2) Troponin T NT-Pro-B Natriuret Pep Total Protein Albumin Triglycerides HDL Cholesterol Folate Urine WBC (Auto) Urine Creatinine Urine Total Protein Vancomycin Trough 01/24/20 01/24/20 01/24/20 18:35 21:31 23:21 WBC RBC Hgb Hct MCV MCH MCHC RDW Plt Count Lymph % (Auto) [place] % (Auto) Eos % (Auto) Lymph # [place] # Eos # Seg Neutrophils % Seg Neuts % (Manual) Lymphocytes % (Manual) Monocytes % (Manual) Eosinophils % (Manual) Nucleated RBC % Seg Neutrophils # Seg Neutrophils # Man Lymphocytes # (Manual) Monocytes # (Manual) Eosinophils # (Manual) PT INR APTT Fibrinogen POC ABG pH ABG pH POC ABG pCO2 POC ABG pO2 ABG pO2 ABG HCO3 ABG O2 Saturation ABG Base Excess ABG Hemoglobin Oxyhemoglobin Sodium Potassium Chloride Carbon Dioxide BUN Creatinine Glucose POC Glucose 154 H 186 H 202 H Uric Acid Calcium Phosphorus Magnesium Iron TIBC AST ALT Total Creatine Kinase CK-MB (CK-2) Troponin T NT-Pro-B Natriuret Pep Total Protein Albumin Triglycerides HDL Cholesterol Folate Urine WBC (Auto) Urine Creatinine Urine Total Protein Vancomycin Trough 06/19/19 06/19/19 06/19/19 03:18 04:30 04:30 WBC RBC 2.65 L Hgb 7.5 L Hct 23.1 L MCV MCH MCHC RDW 19.4 H Plt Count 74 L Lymph % (Auto) 8.8 L [place] % (Auto) 9.4 H Eos % (Auto) 4.7 H Lymph # 0.6 L [place] # Eos # Seg Neutrophils % 76.6 H Seg Neuts % (Manual) Lymphocytes % (Manual) Monocytes % (Manual) Eosinophils % (Manual) Nucleated RBC % Seg Neutrophils # Seg Neutrophils # Man Lymphocytes # (Manual) Monocytes # (Manual) Eosinophils # (Manual) PT INR APTT Fibrinogen POC ABG pH ABG pH 7.452 H POC ABG pCO2 POC ABG pO2 ABG pO2 105.5 H ABG HCO3 32.3 H ABG O2 Saturation ABG Base Excess 7.6 H ABG Hemoglobin 6.9 L Oxyhemoglobin Sodium 150 H Potassium 3.3 L Chloride Carbon Dioxide 31 H BUN 56 H Creatinine Glucose 197 H POC Glucose Uric Acid Calcium Phosphorus Magnesium Iron TIBC AST ALT Total Creatine Kinase CK-MB (CK-2) Troponin T NT-Pro-B Natriuret Pep Total Protein Albumin Triglycerides 210 H HDL Cholesterol Folate Urine WBC (Auto) Urine Creatinine Urine Total Protein Vancomycin Trough 06/19/19 06/19/19 06/19/19 05:24 12:18 18:55 WBC RBC Hgb Hct MCV MCH MCHC RDW Plt Count Lymph % (Auto) [place] % (Auto) Eos % (Auto) Lymph # [place] # Eos # Seg Neutrophils % Seg Neuts % (Manual) Lymphocytes % (Manual) Monocytes % (Manual) Eosinophils % (Manual) Nucleated RBC % Seg Neutrophils # Seg Neutrophils # Man Lymphocytes # (Manual) Monocytes # (Manual) Eosinophils # (Manual) PT INR APTT Fibrinogen POC ABG pH ABG pH POC ABG pCO2 POC ABG pO2 ABG pO2 ABG HCO3 ABG O2 Saturation ABG Base Excess ABG Hemoglobin Oxyhemoglobin Sodium Potassium Chloride Carbon Dioxide BUN Creatinine Glucose POC Glucose 176 H 260 H 192 H Uric Acid Calcium Phosphorus Magnesium Iron TIBC AST ALT Total Creatine Kinase CK-MB (CK-2) Troponin T NT-Pro-B Natriuret Pep Total Protein Albumin Triglycerides HDL Cholesterol Folate Urine WBC (Auto) Urine Creatinine Urine Total Protein Vancomycin Trough 06/19/19 06/19/19 06/20/19 22:57 23:46 04:40 WBC RBC 2.79 L Hgb 7.9 L Hct 24.3 L MCV MCH MCHC RDW 19.6 H Plt Count 92 L Lymph % (Auto) 9.2 L [place] % (Auto) 12.0 H Eos % (Auto) 5.2 H Lymph # 0.9 L [place] # 1.2 H Eos # 0.5 H Seg Neutrophils % 73.3 H Seg Neuts % (Manual) Lymphocytes % (Manual) Monocytes % (Manual) Eosinophils % (Manual) Nucleated RBC % Seg Neutrophils # Seg Neutrophils # Man Lymphocytes # (Manual) Monocytes # (Manual) Eosinophils # (Manual) PT INR APTT Fibrinogen POC ABG pH ABG pH POC ABG pCO2 POC ABG pO2 ABG pO2 ABG HCO3 ABG O2 Saturation ABG Base Excess ABG Hemoglobin Oxyhemoglobin Sodium Potassium Chloride Carbon Dioxide BUN Creatinine Glucose POC Glucose 145 H 216 H Uric Acid Calcium Phosphorus Magnesium Iron TIBC AST ALT Total Creatine Kinase CK-MB (CK-2) Troponin T NT-Pro-B Natriuret Pep Total Protein Albumin Triglycerides HDL Cholesterol Folate Urine WBC (Auto) Urine Creatinine Urine Total Protein Vancomycin Trough 06/20/19 06/20/19 06/20/19 04:40 05:40 05:54 WBC RBC Hgb Hct MCV MCH MCHC RDW Plt Count Lymph % (Auto) [place] % (Auto) Eos % (Auto) Lymph # [place] # Eos # Seg Neutrophils % Seg Neuts % (Manual) Lymphocytes % (Manual) Monocytes % (Manual) Eosinophils % (Manual) Nucleated RBC % Seg Neutrophils # Seg Neutrophils # Man Lymphocytes # (Manual) Monocytes # (Manual) Eosinophils # (Manual) PT INR APTT Fibrinogen POC ABG pH ABG pH 7.455 H POC ABG pCO2 POC ABG pO2 ABG pO2 60.9 L ABG HCO3 30.3 H ABG O2 Saturation 92.3 L ABG Base Excess 5.8 H ABG Hemoglobin 8.2 L Oxyhemoglobin 90.1 L Sodium Potassium 3.5 L Chloride Carbon Dioxide BUN 59 H Creatinine Glucose 200 H POC Glucose 190 H Uric Acid Calcium Phosphorus Magnesium 1.60 L Iron TIBC AST ALT Total Creatine Kinase CK-MB (CK-2) Troponin T NT-Pro-B Natriuret Pep Total Protein Albumin Triglycerides HDL Cholesterol Folate Urine WBC (Auto) Urine Creatinine Urine Total Protein Vancomycin Trough 06/20/19 06/20/19 06/20/19 09:12 09:12 12:24 WBC RBC Hgb Hct MCV MCH MCHC RDW Plt Count Lymph % (Auto) [place] % (Auto) Eos % (Auto) Lymph # [place] # Eos # Seg Neutrophils % Seg Neuts % (Manual) Lymphocytes % (Manual) Monocytes % (Manual) Eosinophils % (Manual) Nucleated RBC % Seg Neutrophils # Seg Neutrophils # Man Lymphocytes # (Manual) Monocytes # (Manual) Eosinophils # (Manual) PT INR APTT Fibrinogen POC ABG pH ABG pH POC ABG pCO2 POC ABG pO2 ABG pO2 ABG HCO3 ABG O2 Saturation ABG Base Excess ABG Hemoglobin Oxyhemoglobin Sodium Potassium Chloride Carbon Dioxide BUN Creatinine Glucose POC Glucose 225 H Uric Acid Calcium Phosphorus Magnesium Iron 45 L TIBC 110 L AST ALT Total Creatine Kinase CK-MB (CK-2) Troponin T NT-Pro-B Natriuret Pep Total Protein Albumin Triglycerides HDL Cholesterol Folate 7.01 L Urine WBC (Auto) Urine Creatinine Urine Total Protein Vancomycin Trough 06/20/19 06/20/19 06/20/19 17:42 21:55 23:24 WBC RBC Hgb Hct MCV MCH MCHC RDW Plt Count Lymph % (Auto) [place] % (Auto) Eos % (Auto) Lymph # [place] # Eos # Seg Neutrophils % Seg Neuts % (Manual) Lymphocytes % (Manual) Monocytes % (Manual) Eosinophils % (Manual) Nucleated RBC % Seg Neutrophils # Seg Neutrophils # Man Lymphocytes # (Manual) Monocytes # (Manual) Eosinophils # (Manual) PT INR APTT Fibrinogen POC ABG pH ABG pH POC ABG pCO2 POC ABG pO2 ABG pO2 ABG HCO3 ABG O2 Saturation ABG Base Excess ABG Hemoglobin Oxyhemoglobin Sodium Potassium Chloride Carbon Dioxide BUN Creatinine Glucose POC Glucose 255 H 218 H 215 H Uric Acid Calcium Phosphorus Magnesium Iron TIBC AST ALT Total Creatine Kinase CK-MB (CK-2) Troponin T NT-Pro-B Natriuret Pep Total Protein Albumin Triglycerides HDL Cholesterol Folate Urine WBC (Auto) Urine Creatinine Urine Total Protein Vancomycin Trough 06/21/19 06/21/19 06/21/19 03:32 03:40 05:20 WBC 12.8 H RBC 3.03 L Hgb 8.5 L Hct 26.2 L MCV MCH MCHC RDW 19.4 H Plt Count 131 L Lymph % (Auto) [place] % (Auto) Eos % (Auto) Lymph # [place] # Eos # Seg Neutrophils % Seg Neuts % (Manual) 78.0 H Lymphocytes % (Manual) 5.0 L Monocytes % (Manual) 11.0 H Eosinophils % (Manual) Nucleated RBC % Seg Neutrophils # Seg Neutrophils # Man 10.0 H Lymphocytes # (Manual) 0.6 L Monocytes # (Manual) 1.4 H Eosinophils # (Manual) 0.5 H PT INR APTT Fibrinogen POC ABG pH ABG pH 7.476 H POC ABG pCO2 POC ABG pO2 ABG pO2 162.0 H ABG HCO3 26.8 H ABG O2 Saturation 99.1 H ABG Base Excess 3.1 H ABG Hemoglobin 8.6 L Oxyhemoglobin Sodium Potassium Chloride Carbon Dioxide BUN Creatinine Glucose POC Glucose 202 H Uric Acid Calcium Phosphorus Magnesium Iron TIBC AST ALT Total Creatine Kinase CK-MB (CK-2) Troponin T NT-Pro-B Natriuret Pep Total Protein Albumin Triglycerides HDL Cholesterol Folate Urine WBC (Auto) Urine Creatinine Urine Total Protein Vancomycin Trough 06/21/19 06/21/19 06/21/19 05:20 12:30 18:18 WBC RBC Hgb Hct MCV MCH MCHC RDW Plt Count Lymph % (Auto) [place] % (Auto) Eos % (Auto) Lymph # [place] # Eos # Seg Neutrophils % Seg Neuts % (Manual) Lymphocytes % (Manual) Monocytes % (Manual) Eosinophils % (Manual) Nucleated RBC % Seg Neutrophils # Seg Neutrophils # Man Lymphocytes # (Manual) Monocytes # (Manual) Eosinophils # (Manual) PT INR APTT Fibrinogen POC ABG pH ABG pH POC ABG pCO2 POC ABG pO2 ABG pO2 ABG HCO3 ABG O2 Saturation ABG Base Excess ABG Hemoglobin Oxyhemoglobin Sodium Potassium Chloride 97.7 L Carbon Dioxide BUN 69 H Creatinine Glucose 239 H POC Glucose 176 H 187 H Uric Acid Calcium Phosphorus Magnesium 2.40 H Iron TIBC AST ALT Total Creatine Kinase CK-MB (CK-2) Troponin T NT-Pro-B Natriuret Pep Total Protein Albumin Triglycerides HDL Cholesterol Folate Urine WBC (Auto) Urine Creatinine Urine Total Protein Vancomycin Trough 06/22/19 06/22/19 06/22/19 04:11 05:30 05:30 WBC 12.6 H RBC 3.10 L Hgb 8.7 L Hct 27.0 L MCV MCH MCHC RDW 19.8 H Plt Count Lymph % (Auto) [place] % (Auto) Eos % (Auto) Lymph # [place] # Eos # Seg Neutrophils % Seg Neuts % (Manual) Lymphocytes % (Manual) Monocytes % (Manual) 10.0 H Eosinophils % (Manual) Nucleated RBC % Seg Neutrophils # Seg Neutrophils # Man 8.7 H Lymphocytes # (Manual) Monocytes # (Manual) 1.3 H Eosinophils # (Manual) PT INR APTT Fibrinogen POC ABG pH ABG pH POC ABG pCO2 POC ABG pO2 ABG pO2 ABG HCO3 27.7 H ABG O2 Saturation ABG Base Excess 3.3 H ABG Hemoglobin 8.5 L Oxyhemoglobin 94.9 L Sodium Potassium Chloride Carbon Dioxide BUN 66 H Creatinine Glucose 103 H POC Glucose Uric Acid Calcium Phosphorus Magnesium Iron TIBC AST ALT Total Creatine Kinase CK-MB (CK-2) Troponin T NT-Pro-B Natriuret Pep Total Protein Albumin Triglycerides HDL Cholesterol Folate Urine WBC (Auto) Urine Creatinine Urine Total Protein Vancomycin Trough 06/22/19 06/22/19 06/23/19 17:43 23:25 02:00 WBC RBC Hgb Hct MCV MCH MCHC RDW Plt Count Lymph % (Auto) [place] % (Auto) Eos % (Auto) Lymph # [place] # Eos # Seg Neutrophils % Seg Neuts % (Manual) Lymphocytes % (Manual) Monocytes % (Manual) Eosinophils % (Manual) Nucleated RBC % Seg Neutrophils # Seg Neutrophils # Man Lymphocytes # (Manual) Monocytes # (Manual) Eosinophils # (Manual) PT INR APTT Fibrinogen POC ABG pH ABG pH 7.469 H POC ABG pCO2 POC ABG pO2 ABG pO2 58.7 L ABG HCO3 28.0 H ABG O2 Saturation 94.6 L ABG Base Excess 4.0 H ABG Hemoglobin 7.1 L Oxyhemoglobin 92.2 L Sodium Potassium Chloride Carbon Dioxide BUN Creatinine Glucose POC Glucose 143 H 106 H Uric Acid Calcium Phosphorus Magnesium Iron TIBC AST ALT Total Creatine Kinase CK-MB (CK-2) Troponin T NT-Pro-B Natriuret Pep Total Protein Albumin Triglycerides HDL Cholesterol Folate Urine WBC (Auto) Urine Creatinine Urine Total Protein Vancomycin Trough 06/23/19 06/23/19 06/23/19 05:24 05:24 11:43 WBC 12.6 H RBC 2.96 L Hgb 8.3 L Hct 25.5 L MCV MCH MCHC RDW 20.2 H Plt Count Lymph % (Auto) [place] % (Auto) Eos % (Auto) Lymph # [place] # Eos # Seg Neutrophils % Seg Neuts % (Manual) Lymphocytes % (Manual) 12.0 L Monocytes % (Manual) 11.0 H Eosinophils % (Manual) 6.0 H Nucleated RBC % Seg Neutrophils # Seg Neutrophils # Man 8.8 H Lymphocytes # (Manual) Monocytes # (Manual) 1.4 H Eosinophils # (Manual) 0.8 H PT INR APTT Fibrinogen POC ABG pH ABG pH POC ABG pCO2 POC ABG pO2 ABG pO2 ABG HCO3 ABG O2 Saturation ABG Base Excess ABG Hemoglobin Oxyhemoglobin Sodium 146 H Potassium 3.5 L Chloride Carbon Dioxide BUN 48 H Creatinine Glucose 123 H POC Glucose 120 H Uric Acid Calcium Phosphorus Magnesium Iron TIBC AST ALT Total Creatine Kinase CK-MB (CK-2) Troponin T NT-Pro-B Natriuret Pep Total Protein Albumin Triglycerides HDL Cholesterol Folate Urine WBC (Auto) Urine Creatinine Urine Total Protein Vancomycin Trough 06/23/19 06/24/19 06/24/19 17:39 06:53 06:53 WBC 12.3 H RBC 2.87 L Hgb 8.0 L Hct 24.9 L MCV MCH MCHC RDW 20.5 H Plt Count Lymph % (Auto) [place] % (Auto) 8.8 H Eos % (Auto) 4.4 H Lymph # [place] # 1.1 H Eos # 0.5 H Seg Neutrophils % Seg Neuts % (Manual) Lymphocytes % (Manual) Monocytes % (Manual) Eosinophils % (Manual) Nucleated RBC % Seg Neutrophils # Seg Neutrophils # Man Lymphocytes # (Manual) Monocytes # (Manual) Eosinophils # (Manual) PT INR APTT Fibrinogen POC ABG pH ABG pH POC ABG pCO2 POC ABG pO2 ABG pO2 ABG HCO3 ABG O2 Saturation ABG Base Excess ABG Hemoglobin Oxyhemoglobin Sodium Potassium Chloride 107.1 H Carbon Dioxide 21 L BUN 29 H Creatinine 0.6 L Glucose 117 H POC Glucose 111 H Uric Acid Calcium Phosphorus Magnesium 1.60 L Iron TIBC AST ALT Total Creatine Kinase CK-MB (CK-2) Troponin T NT-Pro-B Natriuret Pep Total Protein Albumin Triglycerides HDL Cholesterol Folate Urine WBC (Auto) Urine Creatinine Urine Total Protein Vancomycin Trough 06/24/19 06/24/19 06/24/19 12:12 18:01 23:20 WBC RBC Hgb Hct MCV MCH MCHC RDW Plt Count Lymph % (Auto) [place] % (Auto) Eos % (Auto) Lymph # [place] # Eos # Seg Neutrophils % Seg Neuts % (Manual) Lymphocytes % (Manual) Monocytes % (Manual) Eosinophils % (Manual) Nucleated RBC % Seg Neutrophils # Seg Neutrophils # Man Lymphocytes # (Manual) Monocytes # (Manual) Eosinophils # (Manual) PT INR APTT Fibrinogen POC ABG pH ABG pH POC ABG pCO2 POC ABG pO2 ABG pO2 ABG HCO3 ABG O2 Saturation ABG Base Excess ABG Hemoglobin Oxyhemoglobin Sodium Potassium Chloride Carbon Dioxide BUN Creatinine Glucose POC Glucose 158 H 133 H 106 H Uric Acid Calcium Phosphorus Magnesium Iron TIBC AST ALT Total Creatine Kinase CK-MB (CK-2) Troponin T NT-Pro-B Natriuret Pep Total Protein Albumin Triglycerides HDL Cholesterol Folate Urine WBC (Auto) Urine Creatinine Urine Total Protein Vancomycin Trough 06/25/19 06/25/19 06/25/19 04:46 04:46 05:36 WBC 12.3 H RBC 2.98 L Hgb 8.3 L Hct 26.4 L MCV MCH MCHC 31 L RDW 20.1 H Plt Count Lymph % (Auto) [place] % (Auto) Eos % (Auto) Lymph # [place] # Eos # Seg Neutrophils % Seg Neuts % (Manual) Lymphocytes % (Manual) Monocytes % (Manual) 10.0 H Eosinophils % (Manual) Nucleated RBC % Seg Neutrophils # Seg Neutrophils # Man 8.1 H Lymphocytes # (Manual) Monocytes # (Manual) 1.2 H Eosinophils # (Manual) PT INR APTT Fibrinogen POC ABG pH ABG pH POC ABG pCO2 POC ABG pO2 ABG pO2 ABG HCO3 ABG O2 Saturation ABG Base Excess ABG Hemoglobin Oxyhemoglobin Sodium 148 H Potassium Chloride 108.0 H Carbon Dioxide BUN 21 H Creatinine 0.7 L Glucose 120 H POC Glucose 121 H Uric Acid Calcium Phosphorus Magnesium Iron TIBC AST ALT Total Creatine Kinase CK-MB (CK-2) Troponin T NT-Pro-B Natriuret Pep Total Protein Albumin Triglycerides HDL Cholesterol Folate Urine WBC (Auto) Urine Creatinine Urine Total Protein Vancomycin Trough 06/25/19 06/25/19 06/26/19 14:02 18:30 00:01 WBC RBC Hgb Hct MCV MCH MCHC RDW Plt Count Lymph % (Auto) [place] % (Auto) Eos % (Auto) Lymph # [place] # Eos # Seg Neutrophils % Seg Neuts % (Manual) Lymphocytes % (Manual) Monocytes % (Manual) Eosinophils % (Manual) Nucleated RBC % Seg Neutrophils # Seg Neutrophils # Man Lymphocytes # (Manual) Monocytes # (Manual) Eosinophils # (Manual) PT INR APTT Fibrinogen POC ABG pH ABG pH POC ABG pCO2 POC ABG pO2 ABG pO2 ABG HCO3 ABG O2 Saturation ABG Base Excess ABG Hemoglobin Oxyhemoglobin Sodium Potassium Chloride Carbon Dioxide BUN Creatinine Glucose POC Glucose 125 H 145 H 142 H Uric Acid Calcium Phosphorus Magnesium Iron TIBC AST ALT Total Creatine Kinase CK-MB (CK-2) Troponin T NT-Pro-B Natriuret Pep Total Protein Albumin Triglycerides HDL Cholesterol Folate Urine WBC (Auto) Urine Creatinine Urine Total Protein Vancomycin Trough 06/26/19 06/26/19 06/26/19 04:43 04:43 05:41 WBC RBC 3.02 L Hgb 8.6 L Hct 27.0 L MCV MCH MCHC RDW 20.4 H Plt Count Lymph % (Auto) [place] % (Auto) Eos % (Auto) Lymph # [place] # Eos # Seg Neutrophils % Seg Neuts % (Manual) Lymphocytes % (Manual) Monocytes % (Manual) 9.0 H Eosinophils % (Manual) Nucleated RBC % Seg Neutrophils # Seg Neutrophils # Man Lymphocytes # (Manual) Monocytes # (Manual) 1.0 H Eosinophils # (Manual) PT INR APTT Fibrinogen POC ABG pH ABG pH POC ABG pCO2 POC ABG pO2 ABG pO2 ABG HCO3 ABG O2 Saturation ABG Base Excess ABG Hemoglobin Oxyhemoglobin Sodium Potassium Chloride Carbon Dioxide BUN Creatinine 0.7 L Glucose 111 H POC Glucose 110 H Uric Acid Calcium Phosphorus Magnesium 1.60 L Iron TIBC AST ALT Total Creatine Kinase CK-MB (CK-2) Troponin T NT-Pro-B Natriuret Pep Total Protein Albumin Triglycerides HDL Cholesterol Folate Urine WBC (Auto) Urine Creatinine Urine Total Protein Vancomycin Trough 06/26/19 06/26/19 06/27/19 11:55 18:07 12:10 WBC RBC Hgb Hct MCV MCH MCHC RDW Plt Count Lymph % (Auto) [place] % (Auto) Eos % (Auto) Lymph # [place] # Eos # Seg Neutrophils % Seg Neuts % (Manual) Lymphocytes % (Manual) Monocytes % (Manual) Eosinophils % (Manual) Nucleated RBC % Seg Neutrophils # Seg Neutrophils # Man Lymphocytes # (Manual) Monocytes # (Manual) Eosinophils # (Manual) PT INR APTT Fibrinogen POC ABG pH ABG pH POC ABG pCO2 POC ABG pO2 ABG pO2 ABG HCO3 ABG O2 Saturation ABG Base Excess ABG Hemoglobin Oxyhemoglobin Sodium Potassium Chloride Carbon Dioxide BUN Creatinine Glucose POC Glucose 159 H 107 H 121 H Uric Acid Calcium Phosphorus Magnesium Iron TIBC AST ALT Total Creatine Kinase CK-MB (CK-2) Troponin T NT-Pro-B Natriuret Pep Total Protein Albumin Triglycerides HDL Cholesterol Folate Urine WBC (Auto) Urine Creatinine Urine Total Protein Vancomycin Trough 06/28/19 05:54 WBC RBC Hgb Hct MCV MCH MCHC RDW Plt Count Lymph % (Auto) [place] % (Auto) Eos % (Auto) Lymph # [place] # Eos # Seg Neutrophils % Seg Neuts % (Manual) Lymphocytes % (Manual) Monocytes % (Manual) Eosinophils % (Manual) Nucleated RBC % Seg Neutrophils # Seg Neutrophils # Man Lymphocytes # (Manual) Monocytes # (Manual) Eosinophils # (Manual) PT INR APTT Fibrinogen POC ABG pH ABG pH POC ABG pCO2 POC ABG pO2 ABG pO2 ABG HCO3 ABG O2 Saturation ABG Base Excess ABG Hemoglobin Oxyhemoglobin Sodium Potassium Chloride Carbon Dioxide BUN Creatinine Glucose POC Glucose 107 H Uric Acid Calcium Phosphorus Magnesium Iron TIBC AST ALT Total Creatine Kinase CK-MB (CK-2) Troponin T NT-Pro-B Natriuret Pep Total Protein Albumin Triglycerides HDL Cholesterol Folate Urine WBC (Auto) Urine Creatinine Urine Total Protein Vancomycin Trough
[2019-06-29] MEDS: APIXABAN 2.5 MG TAB PO SCH ×2 (13:21→23:02)
[2019-06-29] MEDS: MULTIVITAMINS 5 ML ORAL LIQUID PO SCH (13:21)
--- NOTE | 2019-06-29 19:36 | Progress Note ---
Assessment and Plan Assessment and plan: 34-year-old man with morbid obesity was brought to the hospital for shortness of breath and insomnia. He was found to have severe hypoxia and bradycardia who then became pulseless, he was cyanotic and he was intubated after receiving CPR with 2 rounds of epinephrine. Patient was intubated, extubated and reintubated, unable to wean vent dependent, underwent trach and PEG on 06/22/2019 Patient is on T-piece, alert and awake in mild distress --Acute respiratory failure; vent dependent/status post trach and PEG Off ventilatory support, on T-piece ,trach care, nebulizers Pulmonary critical following --Persistent fevers; leukocytosis , resolved Internal jugular tunneled hemodialysis catheter removed ID Following, monitor off antibiotics --Obesity hypoventilation syndrome Continue ventilatory support, nebulizers Pulmonary critical following --Status post cardiac arrest mild anoxic brain injury patient's mentation is improved ., EEG was negative for seizures and neurology consult appreciated. --Severe malnutrition Dysphasia; dw with his mom, she is agreeable to PEG tube, GS consulted Dietitian input appreciated, continue tube feeds --Anemia of chronic disease : Closely monitor H&H and transfuse as needed. 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 Now Patient is on Eliquis --Acute kidney injury due to ATN : Requiring dialysis Resolved, nephrology following. --Hypernatremia: Resolved --Hypokalemia hypomagnesemia: Resolved --Morbid obesity; will need weight loss program upon discharge --DVT prophylaxis; scd for now Plan of care discussed with the patient and his nurse Disposition ; home with home health versus placement Social and insurance issues CCT 32 minutes History Interval history: Patient seen and examined at bedside medical records reviewed Patient is off ventilatory support, on T-piece Mild distress, alert and awake Vital signs reviewed Hospitalist Physical - Constitutional Vitals: Temp Pulse Resp BP Pulse Ox 98.7 F 89 39 H 135/76 97 06/29/19 16:00 06/29/19 18:00 06/29/19 18:00 06/29/19 18:00 06/29/19 16:00 General appearance: Present: mild distress, well-nourished, obese (morbidly obese), other (tracheostomy /T-piece) - EENT Eyes: Present: PERRL, EOM intact - Neck Neck: Present: supple, normal ROM - Respiratory Respiratory effort: normal Respiratory: bilateral: diminished, rhonchi, negative: rales, wheezing - Cardiovascular Rhythm: regular Heart Sounds: Present: S1 & S2 - Extremities Extremities: no ischemia, No edema - Abdominal General gastrointestinal: soft, non-tender, non-distended, normal bowel sounds, other (PEG tube in place) - Integumentary Integumentary: Present: clear, warm - Psychiatric Psychiatric: appropriate mood/affect, cooperative - Neurologic Neurologic: moves all extremities Results - Labs CBC & Chem 7: 06/26/19 04:43 06/26/19 04:43 Labs: Laboratory Last Values WBC 11.0 K/mm3 (4.5-11.0) 06/26/19 04:43 RBC 3.02 M/mm3 (3.65-5.03) L 06/26/19 04:43 Hgb 8.6 gm/dl (11.8-15.2) L 06/26/19 04:43 Hct 27.0 % (35.5-45.6) L 06/26/19 04:43 MCV 89 fl (84-94) 06/26/19 04:43 MCH 28 pg (28-32) 06/26/19 04:43 MCHC 32 % (32-34) 06/26/19 04:43 RDW 20.4 % (13.2-15.2) H 06/26/19 04:43 Plt Count 232 K/mm3 (140-440) 06/26/19 04:43 Lymph % (Auto) 23.8 % (13.4-35.0) 06/24/19 06:53 [place] % (Auto) 8.8 % (0.0-7.3) H 06/24/19 06:53 Eos % (Auto) 4.4 % (0.0-4.3) H 06/24/19 06:53 Baso % (Auto) 0.9 % (0.0-1.8) 06/24/19 06:53 Lymph # 2.9 K/mm3 (1.2-5.4) 06/24/19 06:53 [place] # 1.1 K/mm3 (0.0-0.8) H 06/24/19 06:53 Eos # 0.5 K/mm3 (0.0-0.4) H 06/24/19 06:53 Baso # 0.1 K/mm3 (0.0-0.1) 06/24/19 06:53 Add Manual Diff Complete 06/26/19 04:43 Total Counted 100 06/26/19 04:43 Seg Neutrophils % 62.1 % (40.0-70.0) 06/24/19 06:53 Seg Neuts % (Manual) 60.0 % (40.0-70.0) 06/26/19 04:43 Band Neutrophils % 4.0 % 06/26/19 04:43 Lymphocytes % (Manual) 25.0 % (13.4-35.0) 06/26/19 04:43 Reactive Lymphs % (Man) 0 % 06/26/19 04:43 Monocytes % (Manual) 9.0 % (0.0-7.3) H 06/26/19 04:43 Eosinophils % (Manual) 2.0 % (0.0-4.3) 06/26/19 04:43 Basophils % (Manual) 0 % (0.0-1.8) 06/26/19 04:43 Metamyelocytes % 0 % 06/26/19 04:43 Myelocytes % 0 % 06/26/19 04:43 Promyelocytes % 0 % 06/26/19 04:43 Blast Cells % 0 % 06/26/19 04:43 Nucleated RBC % Not Reportable 06/26/19 04:43 Seg Neutrophils # 7.7 K/mm3 (1.8-7.7) 06/24/19 06:53 Seg Neutrophils # Man 6.6 K/mm3 (1.8-7.7) 06/26/19 04:43 Band Neutrophils # 0.4 K/mm3 06/26/19 04:43 Lymphocytes # (Manual) 2.8 K/mm3 (1.2-5.4) 06/26/19 04:43 Abs React Lymphs (Man) 0.0 K/mm3 06/26/19 04:43 Monocytes # (Manual) 1.0 K/mm3 (0.0-0.8) H 06/26/19 04:43 Eosinophils # (Manual) 0.2 K/mm3 (0.0-0.4) 06/26/19 04:43 Basophils # (Manual) 0.0 K/mm3 (0.0-0.1) 06/26/19 04:43 Metamyelocytes # 0.0 K/mm3 06/26/19 04:43 Myelocytes # 0.0 K/mm3 06/26/19 04:43 Promyelocytes # 0.0 K/mm3 06/26/19 04:43 Blast Cells # 0.0 K/mm3 06/26/19 04:43 WBC Morphology Not Reportable 06/26/19 04:43 Hypersegmented Neuts Not Reportable 06/26/19 04:43 Hyposegmented Neuts Not Reportable 06/26/19 04:43 Hypogranular Neuts Not Reportable 06/26/19 04:43 Smudge Cells Not Reportable 06/26/19 04:43 Toxic Granulation Not Reportable 06/26/19 04:43 Toxic Vacuolation Not Reportable 06/26/19 04:43 Dohle Bodies Not Reportable 06/26/19 04:43 Pelger-Huet Anomaly Not Reportable 06/26/19 04:43 Renea Rods Not Reportable 06/26/19 04:43 Platelet Estimate Consistent w auto 06/26/19 04:43 Clumped Platelets Not Reportable 06/26/19 04:43 Plt Clumps, EDTA Not Reportable 06/26/19 04:43 Large Platelets Not Reportable 06/26/19 04:43 Giant Platelets Not Reportable 06/26/19 04:43 Platelet Satelliting Not Reportable 06/26/19 04:43 Plt Morphology Comment Not Reportable 06/26/19 04:43 RBC Morphology Not Reportable 06/26/19 04:43 Dimorphic RBCs Not Reportable 06/26/19 04:43 Polychromasia Not Reportable 06/26/19 04:43 Hypochromasia Not Reportable 06/26/19 04:43 Poikilocytosis Not Reportable 06/26/19 04:43 Anisocytosis 1+ 06/26/19 04:43 Microcytosis Not Reportable 06/26/19 04:43 Macrocytosis Not Reportable 06/26/19 04:43 Spherocytes Not Reportable 06/26/19 04:43 Pappenheimer Bodies Not Reportable 06/26/19 04:43 Sickle Cells Not Reportable 06/26/19 04:43 Target Cells Not Reportable 06/26/19 04:43 Tear Drop Cells Not Reportable 06/26/19 04:43 Ovalocytes Not Reportable 06/26/19 04:43 Stomatocytes 3+ 06/23/19 05:24 Helmet Cells Not Reportable 06/26/19 04:43 [place] Bodies Not Reportable 06/26/19 04:43 [place] Rings Not Reportable 06/26/19 04:43 [place] Cells Not Reportable 06/26/19 04:43 Bite Cells Not Reportable 06/26/19 04:43 Crenated Cell Not Reportable 06/26/19 04:43 Elliptocytes Rare 06/26/19 04:43 Acanthocytes (Spur) Not Reportable 06/26/19 04:43 Rouleaux Not Reportable 06/26/19 04:43 Hemoglobin C Crystals Not Reportable 06/26/19 04:43 Schistocytes Not Reportable 06/26/19 04:43 Malaria parasites Not Reportable 06/26/19 04:43 Syed Bodies Not Reportable 06/26/19 04:43 Hem Pathologist Commnt No 06/26/19 04:43 PT 15.4 Sec. (12.2-14.9) H 05/01/19 Unknown INR 1.23 (0.87-1.13) H 05/01/19 Unknown APTT 22.7 Sec. (24.2-36.6) L 05/01/19 Unknown Fibrinogen 194 mg/dl (211-480) L 06/17/19 12:45 Heparin Anti-Xa, Unfract Negative (Negative) 06/17/19 12:45 POC ABG pH 7.462 (7.35-7.45) H 06/05/19 03:52 ABG pH 7.469 pH Units (7.350-7.450) H 06/23/19 02:00 POC ABG pCO2 39.8 (35-45) 06/05/19 03:52 ABG pCO2 39.4 mm Hg 06/23/19 02:00 POC ABG pO2 86 (80-105) 06/05/19 03:52 ABG pO2 58.7 mm Hg (80.0-90.0) L 06/23/19 02:00 POC ABG HCO3 28.4 (22-26 mml/L) 06/05/19 03:52 ABG HCO3 28.0 mmol/L (20.0-26.0) H 06/23/19 02:00 POC ABG Total CO2 30 (23-27mmol/L) 06/05/19 03:52 POC ABG O2 Sat 97 06/05/19 03:52 ABG O2 Saturation 94.6 % (95.0-99.0) L 06/23/19 02:00 ABG O2 Content 9.2 (0.0-44) 06/23/19 02:00 POC ABG Base Excess 5 ((-2) - (+3)mmol/L) 06/05/19 03:52 ABG Base Excess 4.0 mmol/L (-2.0-3.0) H 06/23/19 02:00 ABG Hemoglobin 7.1 gm/dl (14.0-18.0) L 06/23/19 02:00 ABG Carboxyhemoglobin 2.0 % (0.0-5.0) 06/23/19 02:00 ABG Methemoglobin 0.5 % (0.0-1.5) 06/23/19 02:00 Oxyhemoglobin 92.2 % (95.0-99.0) L 06/23/19 02:00 FiO2 30 % 06/23/19 02:00 Sodium 141 mmol/L (137-145) 06/26/19 04:43 Potassium 3.8 mmol/L (3.6-5.0) 06/26/19 04:43 Chloride 103.2 mmol/L (98-107) 06/26/19 04:43 Carbon Dioxide 23 mmol/L (22-30) 06/26/19 04:43 Anion Gap 19 mmol/L 06/26/19 04:43 BUN 19 mg/dL (9-20) 06/26/19 04:43 Creatinine 0.7 mg/dL (0.8-1.5) L 06/26/19 04:43 Estimated GFR > 60 ml/min 06/26/19 04:43 BUN/Creatinine Ratio 27 % 06/26/19 04:43 Glucose 111 mg/dL (75-100) H 06/26/19 04:43 POC Glucose 115 (70-105) H 06/29/19 13:10 Osmolality 327 Mosm/kg 05/07/19 13:45 Uric Acid 18.0 mg/dL (3.5-7.6) H 05/07/19 13:45 Calcium 9.2 mg/dL (8.4-10.2) 06/26/19 04:43 Phosphorus 3.70 mg/dL (2.5-4.5) 06/10/19 05:45 Magnesium 1.60 mg/dL (1.7-2.3) L 06/26/19 04:43 Iron 45 ug/dL (49-181) L 06/20/19 09:12 TIBC 110 mcg/dL (250-450) L 06/20/19 09:12 Ferritin 315.2 ng/mL (13.0-400.0) 06/20/19 09:12 Total Bilirubin 0.50 mg/dL (0.1-1.2) 06/08/19 04:20 AST 23 units/L (5-40) 06/08/19 04:20 ALT 66 units/L (7-56) H 06/08/19 04:20 Alkaline Phosphatase 59 units/L (35-129) 06/08/19 04:20 Total Creatine Kinase 131 units/L (55-170) 05/02/19 04:41 CK-MB (CK-2) 5.2 ng/mL (0.0-4.0) H 05/02/19 04:41 CK-MB (CK-2) Rel Index 3.9 (0-4) 05/02/19 04:41 Troponin T 0.067 ng/mL (0.00-0.029) H D 05/02/19 04:41 NT-Pro-B Natriuret Pep 6831 pg/mL (0-450) H 05/01/19 Unknown Total Protein 5.5 g/dL (6.3-8.2) L 06/08/19 04:20 Albumin 2.9 g/dL (3.9-5) L 06/08/19 04:20 Albumin/Globulin Ratio 1.1 % 06/08/19 04:20 Triglycerides 210 mg/dL (2-149) H 06/19/19 04:30 Cholesterol 173 mg/dL (50-199) 05/02/19 00:06 LDL Cholesterol Direct 126 mg/dL (50-130) 05/02/19 00:06 HDL Cholesterol 18 mg/dL (40-59) L 05/02/19 00:06 Cholesterol/HDL Ratio 9.61 % 05/02/19 00:06 Serotonin Release Assay See scanned results 06/17/19 12:45 Vitamin B12 353.0 pg/mL (211-911) 06/20/19 09:12 Folate 7.01 ng/mL (7.3-26.0) L 06/20/19 09:12 Procalcitonin 0.05 ng/mL (<0.15) 06/17/19 12:45 Urine Color Yellow (Yellow) 06/17/19 12:45 Urine Turbidity Slightly-cloudy (Clear) 06/17/19 12:45 Urine pH 5.0 (5.0-7.0) 06/17/19 12:45 Ur Specific [place] 1.013 (1.003-1.030) 06/17/19 12:45 Urine Protein <15 mg/dl mg/dL (Negative) 06/17/19 12:45 Urine Glucose (UA) Neg mg/dL (Negative) 06/17/19 12:45 Urine Ketones Neg mg/dL (Negative) 06/17/19 12:45 Urine Blood Sm (Negative) 06/17/19 12:45 Urine Nitrite Neg (Negative) 06/17/19 12:45 Urine Bilirubin Neg (Negative) 06/17/19 12:45 Urine Urobilinogen < 2.0 mg/dL (<2.0) 06/17/19 12:45 Ur Leukocyte Esterase Neg (Negative) 06/17/19 12:45 Urine WBC (Auto) 2.0 /HPF (0.0-6.0) 06/17/19 12:45 Urine RBC (Auto) 2.0 /HPF (0.0-6.0) 06/17/19 12:45 U Epithel Cells (Auto) < 1.0 /HPF (0-13.0) 06/17/19 12:45 Urine Bacteria (Auto) 1+ /HPF (Negative) 05/20/19 12:00 Uric Acid Crystals 3+ 05/03/19 10:55 Urine Mucus Few /HPF 06/17/19 12:45 Urine Yeast (Budding) 3+ /HPF 05/20/19 12:00 Urine Creatinine 292.8 mg/dL (0.1-20.0) H 05/07/19 22:40 Urine Sodium 11 mmol/L 05/07/19 22:40 Urine Total Protein 269 mg/dL (5-11.8) H 05/07/19 22:40 Vancomycin Trough 20.5 ug/mL (5.0-20.0) H 05/15/19 09:00 Random Vancomycin 11.5 ug/mL (0-40.0) 05/27/19 06:00 AMNA Screen Negative (Negative) 05/07/19 13:45 Heparin-induced Plt Ab Negative (Negative) 06/17/19 12:45 UF Heparin High Dose 13 % Release 06/17/19 12:45 YUNG UFH Low Dose 0.1 8 % Release 06/17/19 12:45 YUNG UFH Low Dose 0.5 7 % Release 06/17/19 12:45 Hepatitis A IgM Ab Non-reactive (NonReactive) 05/07/19 13:45 Hep Bs Antigen Non-reactive (Negative) 05/07/19 13:45 Hep B Core IgM Ab Non-reactive (NonReactive) 05/07/19 13:45 Hepatitis C Antibody Non-reactive (NonReactive) 05/07/19 13:45 Influenza A (Rapid) Negative (Negative) 06/17/19 11:35 Influenza B (Rapid) Negative (Negative) 06/17/19 11:35 Active Medications - Current Medications Current Medications: Generic Name Dose Route Start Last Admin Trade Name Freq PRN Reason Stop Dose Admin Amlodipine Besylate 10 mg 06/25/19 11:00 06/29/19 10:40 Amlodipine PO 10 mg DAILY VICKEY Administration Lipase/Protease/Amylase 1 each 05/14/19 15:01 Pancremannie Fletcher 10,500 Unit FEEDTUBE PRN PRN For Clogged Feeding Tube Apixaban 2.5 mg 06/23/19 22:00 06/29/19 13:21 Eliquis PO 2.5 mg Q12HR VICKEY Administration Protocol Dextrose 50 gm 05/01/19 20:24 D50w (25gm) Vial IV Q30MIN PRN Hypoglycemia Protocol Famotidine 20 mg 06/17/19 10:00 06/29/19 10:40 Pepcid PO 20 mg BID VICKEY Administration Fentanyl 25 mcg 06/24/19 17:00 06/27/19 12:10 Sublimaze IV 25 mcg Q2HR PRN Administration Pain, Moderate (4-6) Ferrous Sulfate 308 mg 06/18/19 12:00 06/29/19 10:40 Ferrous Sulfate PO 308 mg QDAY VICKEY Administration Hydrochlorothiazide 25 mg 06/26/19 11:00 06/29/19 10:40 Hctz PO 25 mg QDAY VICKEY Administration Hydrophilic Ointment 1 applic 06/16/19 17:34 Vaseline Lip Therapy TP Q2HR PRN Dry Lips Insulin Human Lispro 0 unit 06/01/19 14:00 06/29/19 18:29 Humalog SUB-Q Not Given Q6HR [facility] Protocol Labetalol HCl 10 mg 06/11/19 22:48 06/29/19 04:24 Labetalol IV 10 mg Q4H PRN Administration BP >170/105; hold for HR <60 Labetalol HCl 200 mg 06/28/19 10:00 06/29/19 14:35 Labetalol PO 200 mg Q8HR VICKEY Administration Multi-Ingred Cream/Lotion/Oil/Oint 1 applic 06/16/19 18:00 Artificial Tears Ophth Oint OU Q4HR PRN Dry Eye(s) Multivitamins 5 ml 06/29/19 12:00 06/29/19 13:21 Centrum Liq PO 5 ml QDAY VICKEY Administration Potassium Chloride 40 meq 06/19/19 10:00 06/29/19 10:41 Potassium Chloride FEEDTUBE 40 meq QDAY VICKEY Administration Prednisone 5 mg 06/29/19 12:28 Deltasone PO QDAY VICKEY Scopolamine 1 each 06/27/19 09:00 06/27/19 09:56 Transderm-Scop TD 1 each Q3D VICKEY Administration Simple Syrup 15 ml 05/14/19 15:01 Simple Syrup FEEDTUBE PRN PRN Hypoglycemia Simple Syrup 30 ml 05/14/19 15:01 Simple Syrup FEEDTUBE PRN PRN Hypoglycemia Sodium Bicarbonate 325 mg 05/14/19 15:01 Sodium Bicarbonate FEEDTUBE PRN PRN For Clogged Feeding Tube Nutrition/Malnutrition Assess - Dietary Evaluation Nutrition/Malnutrition Findings: Nutrition Notes Start: 05/04/19 12:54 Freq: Status: Active Protocol: Document 06/28/19 09:24 LP (Rec: 06/28/19 09:29 LP [id number]) Nutrition Notes Initial or Follow up Reassessment Current Diagnosis Acute Kidney Injury,Sepsis, Respiratory Failure Other Pertinent Diagnosis HD Current Diet Nepro 1.8 at 50 ml/hr Labs/Tests 06/26 Na 141 Pertinent Medications Reviewed Height 6 ft 4 in Weight 257.2 kg [place] Body Weight (kg) 91.81 BMI 69.0 Weight Status Morbidly Obese Subjective/Other Information Pt tolerating TF at goal rate. Percent of energy/protein needs met: 100%/42% Burn Absent Trauma Absent GI Symptoms None Current % PO Negligible Minimum of two criteria No Fluid Accumulation Moderate to Severe (severe) #1 Nutrition Diagnosis Inadequate oral intake Diagnosis Progress(for reassessment Continues documentation) Is patient on ventilator? Yes Is Patient Ambulatory and/or Out of Bed No REE-([facility]-confined to bed) 4342.284 Kcal/Kg value to use for calculation 8 Approximate Energy Requirements Using 8 kcal/Kg Calculation Used for Recommendations Kcal/kg Additional Notes PRO needs: up to 229g (up to 2 .5g/kg IBW) Fluid needs: 1 ml/kcal Nutrition Intervention Change Diet Order: Continue TF Nutrition Support: Nepro 1.8 at 50 ml/hr Flush 400ml q4h for hypernatremia. and 250ml q4h once resolved Kcal 2,160 Protein (gm) 97 Fluid (mL) 872 Goal #1 TF tolerance Goal #2 Meet at least 75% kcal/ and 40 % of PRO needs via TF Anticipated Discharge Needs: Unable to determine at this time Follow-Up By: 07/02/19 Additional Comments Follow for stable TF
[2019-06-30] MEDS: INSULIN LISPRO 100 UNIT/ML SUB-Q SCH ×2 (05:17→20:01)
--- NOTE | 2019-06-30 10:24 | Progress Note ---
Assessment and Plan 34 y/o male with acute hypoxic, hypercapnic respiratory failure now with trach and uncontrolled hypertension. 06/30/2019: Continue current care. PT/OT. Work on discharge planning. steroids to 5 daily, will likely stop Friday or Friday. 06/26/2019: Will discontinue vent from room. patient was placed on vent last night. Not sure why. Will place orders for continued T-piece. Appears he was doing well with no issues. If tolerates being off vent tonight, transition to step down tomorrow. Increase HCTZ to 25 06/25/2019: Continue T-piece today as tolerated. Only rest of vent if needed. If not needed tonight then will discontinue vent from room. Spoke with IR, and they will remove Perm cath today as this could be a cause of fevers. Follow up cultures and ID recs. Will increase Free H2O to [id number]. Change steroids to 10 PO starting tomorrow morning. Added scheduled BP meds. 06/24/2019: Will attempt T-piece later today, if tolerates, then will continue trial indefinitely. PT/OT will need to start seeing him again. Will drop steroids to 10 daily (PO) starting Friday morning. 06/23/2019: PSV all day today and tomorrow. Will start T-piece either tomorrow or Friday. Tolerating Feeds 06/22/2019: Patient scheduled for OR today. Plan as outlined in Dr. Saez's note from yesterday. Discussed with patient again this am. Really appreciate surgery help with this and the promptness of procedure. Will follow up post-op later today. 06/21/2019: Unfortunately re-intubated last week. Will need Trach and Peg, but I doubt peg will happen secondary to his size. Will discuss with surgery and maybe they can just put in a number 6 XLT from the start. I think he will get off the vent relatively quickly and can start to eat. This trach will be indefinite. I have explained this to him. I have not seen his family at the bedside during this admission but Im told they come in the evenings. 06/12/2019: Started HCTZ 50 daily and Labetalol 100 TID. Will increase Labetalol to 200 TID. Already on Clonidine patch. Continue Minoxidil. Will start to wean drip. PT/OT. Feeds through NG now that this is in place. Will need speech re-evaluation. Will order NT suctioning at least [id number] for the next 24 hours. 06/11/2019: Bipap at night and PRN. Na levels are increasing. Agree with D5W. Unable to place DH, several nurses tried. Will ask speech to come by and reassess now that patient is more willing to cooperate. . Continue PT/OT, sat up on side of bed yesterday. Continue IMCU monitoring for now. As stated below, patient was intubated for 37 days. CCT 31 minutes. Subjective Date of service: 06/30/19 Principal diagnosis: anemia - LOw PLT Interval history: Awake and alert. Remains on T-piece and stable. Objective Vital Signs - 12hr 06/29/19 06/29/19 06/30/19 23:00 23:01 00:00 Temperature 99.6 F Pulse Rate 89 89 87 Pulse Rate [ 72 From Monitor] Respiratory 29 H 37 H Rate Blood Pressure 138/65 138/65 138/65 O2 Sat by Pulse 98 Oximetry O2 Sat by Pulse Oximetry [ Assessment] 06/30/19 06/30/19 06/30/19 01:00 02:00 03:00 Temperature Pulse Rate 83 86 90 Pulse Rate [ From Monitor] Respiratory 17 28 H 26 H Rate Blood Pressure 146/71 155/81 155/81 O2 Sat by Pulse 97 97 Oximetry O2 Sat by Pulse Oximetry [ Assessment] 06/30/19 06/30/19 06/30/19 04:00 05:00 05:17 Temperature Pulse Rate 87 93 H 88 Pulse Rate [ 94 H From Monitor] Respiratory 27 H 29 H Rate Blood Pressure 152/76 128/105 149/81 O2 Sat by Pulse 98 Oximetry O2 Sat by Pulse Oximetry [ Assessment] 06/30/19 06/30/19 06/30/19 06:00 07:00 08:00 Temperature 99.2 F Pulse Rate 89 85 87 Pulse Rate [ 94 H From Monitor] Respiratory 17 28 H 24 Rate Blood Pressure 149/81 149/81 134/69 O2 Sat by Pulse 96 99 96 Oximetry O2 Sat by Pulse Oximetry [ Assessment] 06/30/19 06/30/19 06/30/19 09:00 10:00 10:04 Temperature Pulse Rate 90 95 H Pulse Rate [ From Monitor] Respiratory 20 25 H Rate Blood Pressure 138/73 131/61 O2 Sat by Pulse 95 98 98 Oximetry O2 Sat by Pulse Oximetry [ Assessment] 06/30/19 10:06 Temperature Pulse Rate Pulse Rate [ From Monitor] Respiratory Rate Blood Pressure O2 Sat by Pulse Oximetry O2 Sat by Pulse 98 Oximetry [ Assessment] Constitutional: other (morbidly obese male, critically ill on vent) Eyes: non-icteric ENT: oropharynx moist Neck: other (extremely large in circumference) Effort: normal Ascultation: Bilateral: diminished breath sounds (secondary to body habitus), rhonchi Cardiovascular: regular rate and rhythm (no mrg) Gastrointestinal: normoactive bowel sounds, soft, non-tender, other (obese) Integumentary: other (L hand is wrapped) Extremities: no cyanosis, pink and warm, other (1+ generalized edema) Neurologic: normal mental status, non-focal exam Psychiatric: mood appropriate, affect normal CBC and BMP: 06/26/19 04:43 06/26/19 04:43 ABG, PT/INR, D-dimer: ABG POC ABG pH 7.462 (7.35-7.45) H 06/05/19 03:52 ABG pH 7.469 pH Units (7.350-7.450) H 06/23/19 02:00 POC ABG pCO2 39.8 (35-45) 06/05/19 03:52 ABG pCO2 39.4 mm Hg 06/23/19 02:00 POC ABG pO2 86 (80-105) 06/05/19 03:52 ABG pO2 58.7 mm Hg (80.0-90.0) L 06/23/19 02:00 POC ABG HCO3 28.4 (22-26 mml/L) 06/05/19 03:52 POC ABG Total CO2 30 (23-27mmol/L) 06/05/19 03:52 POC ABG O2 Sat 97 06/05/19 03:52 ABG O2 Saturation 94.6 % (95.0-99.0) L 06/23/19 02:00 PT/INR, D-dimer PT 15.4 Sec. (12.2-14.9) H 05/01/19 Unknown INR 1.23 (0.87-1.13) H 05/01/19 Unknown Abnormal lab findings: Abnormal Labs 05/01/19 05/01/19 05/01/19 17:50 19:26 22:36 WBC RBC Hgb Hct MCV MCH MCHC RDW Plt Count Lymph % (Auto) [place] % (Auto) Eos % (Auto) Lymph # [place] # Eos # Seg Neutrophils % Seg Neuts % (Manual) Lymphocytes % (Manual) Monocytes % (Manual) Eosinophils % (Manual) Nucleated RBC % Seg Neutrophils # Seg Neutrophils # Man Lymphocytes # (Manual) Monocytes # (Manual) Eosinophils # (Manual) PT INR APTT Fibrinogen POC ABG pH 7.272 L 7.331 L ABG pH POC ABG pCO2 52.8 H POC ABG pO2 ABG pO2 ABG HCO3 ABG O2 Saturation ABG Base Excess ABG Hemoglobin Oxyhemoglobin Sodium 136 L Potassium 6.5 H* Chloride 97.2 L Carbon Dioxide BUN 60 H Creatinine Glucose 113 H POC Glucose Uric Acid Calcium Phosphorus Magnesium 2.40 H Iron TIBC AST 139 H ALT 154 H Total Creatine Kinase CK-MB (CK-2) Troponin T NT-Pro-B Natriuret Pep Total Protein Albumin 3.8 L Triglycerides HDL Cholesterol Folate Urine WBC (Auto) Urine Creatinine Urine Total Protein Vancomycin Trough 05/01/19 05/01/19 05/01/19 Unknown Unknown Unknown WBC 16.1 H RBC Hgb Hct MCV MCH MCHC RDW 17.2 H Plt Count Lymph % (Auto) [place] % (Auto) 9.6 H Eos % (Auto) Lymph # [place] # 1.5 H Eos # Seg Neutrophils % 73.0 H Seg Neuts % (Manual) Lymphocytes % (Manual) Monocytes % (Manual) Eosinophils % (Manual) Nucleated RBC % Seg Neutrophils # 11.7 H Seg Neutrophils # Man Lymphocytes # (Manual) Monocytes # (Manual) Eosinophils # (Manual) PT 15.4 H INR 1.23 H APTT 22.7 L Fibrinogen POC ABG pH ABG pH POC ABG pCO2 POC ABG pO2 ABG pO2 ABG HCO3 ABG O2 Saturation ABG Base Excess ABG Hemoglobin Oxyhemoglobin Sodium Potassium Chloride Carbon Dioxide BUN Creatinine Glucose POC Glucose Uric Acid Calcium Phosphorus Magnesium Iron TIBC AST ALT Total Creatine Kinase CK-MB (CK-2) Troponin T NT-Pro-B Natriuret Pep 6831 H Total Protein Albumin Triglycerides HDL Cholesterol Folate Urine WBC (Auto) Urine Creatinine Urine Total Protein Vancomycin Trough 05/01/19 05/02/19 05/02/19 Unknown 00:06 00:06 WBC RBC Hgb Hct MCV MCH MCHC RDW Plt Count Lymph % (Auto) [place] % (Auto) Eos % (Auto) Lymph # [place] # Eos # Seg Neutrophils % Seg Neuts % (Manual) Lymphocytes % (Manual) Monocytes % (Manual) Eosinophils % (Manual) Nucleated RBC % Seg Neutrophils # Seg Neutrophils # Man Lymphocytes # (Manual) Monocytes # (Manual) Eosinophils # (Manual) PT INR APTT Fibrinogen POC ABG pH ABG pH POC ABG pCO2 POC ABG pO2 ABG pO2 ABG HCO3 ABG O2 Saturation ABG Base Excess ABG Hemoglobin Oxyhemoglobin Sodium Potassium Chloride Carbon Dioxide BUN Creatinine Glucose POC Glucose Uric Acid Calcium Phosphorus 4.90 H Magnesium Iron TIBC AST ALT Total Creatine Kinase 226 H CK-MB (CK-2) 5.7 H Troponin T 0.044 H NT-Pro-B Natriuret Pep Total Protein Albumin Triglycerides 182 H HDL Cholesterol 18 L Folate Urine WBC (Auto) Urine Creatinine Urine Total Protein Vancomycin Trough 05/02/19 05/02/19 05/02/19 02:08 04:40 04:41 WBC 17.6 H RBC Hgb Hct MCV MCH 27 L MCHC RDW 17.4 H Plt Count Lymph % (Auto) 10.2 L [place] % (Auto) 11.0 H Eos % (Auto) Lymph # [place] # 1.9 H Eos # Seg Neutrophils % 78.0 H Seg Neuts % (Manual) Lymphocytes % (Manual) Monocytes % (Manual) Eosinophils % (Manual) Nucleated RBC % Seg Neutrophils # 13.8 H Seg Neutrophils # Man Lymphocytes # (Manual) Monocytes # (Manual) Eosinophils # (Manual) PT INR APTT Fibrinogen POC ABG pH ABG pH POC ABG pCO2 46.8 H POC ABG pO2 63 L ABG pO2 ABG HCO3 ABG O2 Saturation ABG Base Excess ABG Hemoglobin Oxyhemoglobin Sodium Potassium Chloride 96.3 L Carbon Dioxide BUN 63 H Creatinine 1.7 H Glucose POC Glucose Uric Acid Calcium Phosphorus Magnesium Iron TIBC AST ALT Total Creatine Kinase CK-MB (CK-2) Troponin T NT-Pro-B Natriuret Pep Total Protein Albumin Triglycerides HDL Cholesterol Folate Urine WBC (Auto) Urine Creatinine Urine Total Protein Vancomycin Trough 05/02/19 05/02/19 05/02/19 04:41 04:41 16:05 WBC RBC Hgb Hct MCV MCH MCHC RDW Plt Count Lymph % (Auto) [place] % (Auto) Eos % (Auto) Lymph # [place] # Eos # Seg Neutrophils % Seg Neuts % (Manual) Lymphocytes % (Manual) Monocytes % (Manual) Eosinophils % (Manual) Nucleated RBC % Seg Neutrophils # Seg Neutrophils # Man Lymphocytes # (Manual) Monocytes # (Manual) Eosinophils # (Manual) PT INR APTT Fibrinogen POC ABG pH ABG pH POC ABG pCO2 POC ABG pO2 ABG pO2 66.6 L ABG HCO3 31.9 H ABG O2 Saturation 92.5 L ABG Base Excess 5.8 H ABG Hemoglobin 13.3 L Oxyhemoglobin 90.6 L Sodium Potassium Chloride 97.2 L Carbon Dioxide BUN 61 H Creatinine 1.8 H Glucose POC Glucose Uric Acid Calcium Phosphorus Magnesium Iron TIBC AST ALT Total Creatine Kinase CK-MB (CK-2) 5.2 H Troponin T 0.067 H D NT-Pro-B Natriuret Pep Total Protein Albumin Triglycerides HDL Cholesterol Folate Urine WBC (Auto) Urine Creatinine Urine Total Protein Vancomycin Trough 05/02/19 05/03/19 05/03/19 20:39 04:35 05:05 WBC 11.8 H RBC Hgb Hct MCV MCH 27 L MCHC 31 L RDW 17.2 H Plt Count Lymph % (Auto) [place] % (Auto) Eos % (Auto) Lymph # [place] # Eos # Seg Neutrophils % Seg Neuts % (Manual) Lymphocytes % (Manual) Monocytes % (Manual) Eosinophils % (Manual) Nucleated RBC % Seg Neutrophils # Seg Neutrophils # Man Lymphocytes # (Manual) Monocytes # (Manual) Eosinophils # (Manual) PT INR APTT Fibrinogen POC ABG pH ABG pH POC ABG pCO2 53.6 H 54.0 H POC ABG pO2 55 L 63 L ABG pO2 ABG HCO3 ABG O2 Saturation ABG Base Excess ABG Hemoglobin Oxyhemoglobin Sodium Potassium Chloride Carbon Dioxide BUN Creatinine Glucose POC Glucose Uric Acid Calcium Phosphorus Magnesium Iron TIBC AST ALT Total Creatine Kinase CK-MB (CK-2) Troponin T NT-Pro-B Natriuret Pep Total Protein Albumin Triglycerides HDL Cholesterol Folate Urine WBC (Auto) Urine Creatinine Urine Total Protein Vancomycin Trough 05/03/19 05/03/19 05/03/19 05:05 10:55 16:48 WBC RBC Hgb Hct MCV MCH MCHC RDW Plt Count Lymph % (Auto) [place] % (Auto) Eos % (Auto) Lymph # [place] # Eos # Seg Neutrophils % Seg Neuts % (Manual) Lymphocytes % (Manual) Monocytes % (Manual) Eosinophils % (Manual) Nucleated RBC % Seg Neutrophils # Seg Neutrophils # Man Lymphocytes # (Manual) Monocytes # (Manual) Eosinophils # (Manual) PT INR APTT Fibrinogen POC ABG pH 7.604 H ABG pH POC ABG pCO2 POC ABG pO2 58 L ABG pO2 ABG HCO3 ABG O2 Saturation ABG Base Excess ABG Hemoglobin Oxyhemoglobin Sodium Potassium Chloride Carbon Dioxide BUN 52 H Creatinine 1.9 H Glucose 103 H POC Glucose Uric Acid Calcium Phosphorus Magnesium Iron TIBC AST ALT Total Creatine Kinase CK-MB (CK-2) Troponin T NT-Pro-B Natriuret Pep Total Protein Albumin Triglycerides HDL Cholesterol Folate Urine WBC (Auto) 33.0 H Urine Creatinine Urine Total Protein Vancomycin Trough 05/04/19 05/04/19 05/04/19 04:49 06:50 06:50 WBC 16.0 H RBC Hgb Hct MCV MCH 27 L MCHC 31 L RDW 17.8 H Plt Count Lymph % (Auto) [place] % (Auto) Eos % (Auto) Lymph # [place] # Eos # Seg Neutrophils % Seg Neuts % (Manual) Lymphocytes % (Manual) Monocytes % (Manual) Eosinophils % (Manual) Nucleated RBC % Seg Neutrophils # Seg Neutrophils # Man Lymphocytes # (Manual) Monocytes # (Manual) Eosinophils # (Manual) PT INR APTT Fibrinogen POC ABG pH 7.273 L ABG pH POC ABG pCO2 POC ABG pO2 ABG pO2 ABG HCO3 ABG O2 Saturation ABG Base Excess ABG Hemoglobin Oxyhemoglobin Sodium 148 H Potassium 5.5 H Chloride Carbon Dioxide BUN 53 H Creatinine 3.3 H D Glucose 106 H POC Glucose Uric Acid Calcium 8.3 L Phosphorus Magnesium Iron TIBC AST ALT Total Creatine Kinase CK-MB (CK-2) Troponin T NT-Pro-B Natriuret Pep Total Protein Albumin Triglycerides HDL Cholesterol Folate Urine WBC (Auto) Urine Creatinine Urine Total Protein Vancomycin Trough 05/05/19 05/05/19 05/05/19 00:05 04:30 05:00 WBC RBC Hgb Hct MCV MCH MCHC RDW Plt Count Lymph % (Auto) [place] % (Auto) Eos % (Auto) Lymph # [place] # Eos # Seg Neutrophils % Seg Neuts % (Manual) Lymphocytes % (Manual) Monocytes % (Manual) Eosinophils % (Manual) Nucleated RBC % Seg Neutrophils # Seg Neutrophils # Man Lymphocytes # (Manual) Monocytes # (Manual) Eosinophils # (Manual) PT INR APTT Fibrinogen POC ABG pH 7.225 L ABG pH POC ABG pCO2 > 70 H POC ABG pO2 ABG pO2 ABG HCO3 ABG O2 Saturation ABG Base Excess ABG Hemoglobin Oxyhemoglobin Sodium 151 H Potassium 5.1 H Chloride Carbon Dioxide BUN 64 H Creatinine 3.5 H Glucose 117 H POC Glucose 141 H Uric Acid Calcium 7.5 L Phosphorus Magnesium Iron TIBC AST 93 H ALT 65 H Total Creatine Kinase CK-MB (CK-2) Troponin T NT-Pro-B Natriuret Pep Total Protein Albumin 2.9 L Triglycerides HDL Cholesterol Folate Urine WBC (Auto) Urine Creatinine Urine Total Protein Vancomycin Trough 05/05/19 05/05/19 05/05/19 05:00 12:02 17:46 WBC 12.0 H RBC Hgb 11.3 L Hct MCV MCH 27 L MCHC 30 L RDW 18.4 H Plt Count Lymph % (Auto) 7.9 L [place] % (Auto) 10.2 H Eos % (Auto) Lymph # 1.0 L [place] # 1.2 H Eos # Seg Neutrophils % 80.8 H Seg Neuts % (Manual) Lymphocytes % (Manual) Monocytes % (Manual) Eosinophils % (Manual) Nucleated RBC % Seg Neutrophils # 9.7 H Seg Neutrophils # Man Lymphocytes # (Manual) Monocytes # (Manual) Eosinophils # (Manual) PT INR APTT Fibrinogen POC ABG pH ABG pH POC ABG pCO2 POC ABG pO2 ABG pO2 ABG HCO3 ABG O2 Saturation ABG Base Excess ABG Hemoglobin Oxyhemoglobin Sodium Potassium Chloride Carbon Dioxide BUN Creatinine Glucose POC Glucose 125 H 112 H Uric Acid Calcium Phosphorus Magnesium Iron TIBC AST ALT Total Creatine Kinase CK-MB (CK-2) Troponin T NT-Pro-B Natriuret Pep Total Protein Albumin Triglycerides HDL Cholesterol Folate Urine WBC (Auto) Urine Creatinine Urine Total Protein Vancomycin Trough 05/05/19 05/06/19 05/06/19 23:42 03:58 04:45 WBC 11.4 H RBC Hgb 10.7 L Hct 34.2 L MCV MCH 27 L MCHC 31 L RDW 16.9 H Plt Count Lymph % (Auto) [place] % (Auto) Eos % (Auto) Lymph # [place] # Eos # Seg Neutrophils % Seg Neuts % (Manual) Lymphocytes % (Manual) Monocytes % (Manual) Eosinophils % (Manual) Nucleated RBC % Seg Neutrophils # Seg Neutrophils # Man Lymphocytes # (Manual) Monocytes # (Manual) Eosinophils # (Manual) PT INR APTT Fibrinogen POC ABG pH ABG pH POC ABG pCO2 62.4 H POC ABG pO2 111 H ABG pO2 ABG HCO3 ABG O2 Saturation ABG Base Excess ABG Hemoglobin Oxyhemoglobin Sodium Potassium Chloride Carbon Dioxide BUN Creatinine Glucose POC Glucose 128 H Uric Acid Calcium Phosphorus Magnesium Iron TIBC AST ALT Total Creatine Kinase CK-MB (CK-2) Troponin T NT-Pro-B Natriuret Pep Total Protein Albumin Triglycerides HDL Cholesterol Folate Urine WBC (Auto) Urine Creatinine Urine Total Protein Vancomycin Trough 05/06/19 05/06/19 05/06/19 04:45 05:33 12:30 WBC RBC Hgb Hct MCV MCH MCHC RDW Plt Count Lymph % (Auto) [place] % (Auto) Eos % (Auto) Lymph # [place] # Eos # Seg Neutrophils % Seg Neuts % (Manual) Lymphocytes % (Manual) Monocytes % (Manual) Eosinophils % (Manual) Nucleated RBC % Seg Neutrophils # Seg Neutrophils # Man Lymphocytes # (Manual) Monocytes # (Manual) Eosinophils # (Manual) PT INR APTT Fibrinogen POC ABG pH ABG pH POC ABG pCO2 POC ABG pO2 ABG pO2 ABG HCO3 ABG O2 Saturation ABG Base Excess ABG Hemoglobin Oxyhemoglobin Sodium 149 H Potassium Chloride Carbon Dioxide 31 H BUN 67 H Creatinine 3.2 H Glucose 125 H POC Glucose 117 H 116 H Uric Acid Calcium 7.5 L Phosphorus Magnesium Iron TIBC AST ALT Total Creatine Kinase CK-MB (CK-2) Troponin T NT-Pro-B Natriuret Pep Total Protein Albumin Triglycerides HDL Cholesterol Folate Urine WBC (Auto) Urine Creatinine Urine Total Protein Vancomycin Trough 05/06/19 05/06/19 05/07/19 18:34 23:16 05:22 WBC RBC Hgb Hct MCV MCH MCHC RDW Plt Count Lymph % (Auto) [place] % (Auto) Eos % (Auto) Lymph # [place] # Eos # Seg Neutrophils % Seg Neuts % (Manual) Lymphocytes % (Manual) Monocytes % (Manual) Eosinophils % (Manual) Nucleated RBC % Seg Neutrophils # Seg Neutrophils # Man Lymphocytes # (Manual) Monocytes # (Manual) Eosinophils # (Manual) PT INR APTT Fibrinogen POC ABG pH ABG pH POC ABG pCO2 POC ABG pO2 ABG pO2 ABG HCO3 ABG O2 Saturation ABG Base Excess ABG Hemoglobin Oxyhemoglobin Sodium Potassium Chloride Carbon Dioxide BUN Creatinine Glucose POC Glucose 128 H 143 H 166 H Uric Acid Calcium Phosphorus Magnesium Iron TIBC AST ALT Total Creatine Kinase CK-MB (CK-2) Troponin T NT-Pro-B Natriuret Pep Total Protein Albumin Triglycerides HDL Cholesterol Folate Urine WBC (Auto) Urine Creatinine Urine Total Protein Vancomycin Trough 05/07/19 05/07/19 05/07/19 06:33 07:03 09:35 WBC RBC Hgb Hct MCV MCH MCHC RDW Plt Count Lymph % (Auto) [place] % (Auto) Eos % (Auto) Lymph # [place] # Eos # Seg Neutrophils % Seg Neuts % (Manual) Lymphocytes % (Manual) Monocytes % (Manual) Eosinophils % (Manual) Nucleated RBC % Seg Neutrophils # Seg Neutrophils # Man Lymphocytes # (Manual) Monocytes # (Manual) Eosinophils # (Manual) PT INR APTT Fibrinogen POC ABG pH 7.263 L 7.288 L ABG pH POC ABG pCO2 POC ABG pO2 51 L 56 L ABG pO2 ABG HCO3 ABG O2 Saturation ABG Base Excess ABG Hemoglobin Oxyhemoglobin Sodium Potassium Chloride Carbon Dioxide BUN 76 H Creatinine 3.2 H Glucose 147 H POC Glucose Uric Acid Calcium 7.9 L Phosphorus Magnesium Iron TIBC AST ALT Total Creatine Kinase CK-MB (CK-2) Troponin T NT-Pro-B Natriuret Pep Total Protein Albumin Triglycerides HDL Cholesterol Folate Urine WBC (Auto) Urine Creatinine Urine Total Protein Vancomycin Trough 05/07/19 05/07/19 05/07/19 09:35 12:17 13:45 WBC 13.4 H RBC Hgb 11.6 L Hct MCV MCH 27 L MCHC 31 L RDW 17.5 H Plt Count Lymph % (Auto) [place] % (Auto) Eos % (Auto) Lymph # [place] # Eos # Seg Neutrophils % Seg Neuts % (Manual) Lymphocytes % (Manual) Monocytes % (Manual) Eosinophils % (Manual) Nucleated RBC % Seg Neutrophils # Seg Neutrophils # Man Lymphocytes # (Manual) Monocytes # (Manual) Eosinophils # (Manual) PT INR APTT Fibrinogen POC ABG pH ABG pH POC ABG pCO2 POC ABG pO2 ABG pO2 ABG HCO3 ABG O2 Saturation ABG Base Excess ABG Hemoglobin Oxyhemoglobin Sodium Potassium Chloride Carbon Dioxide BUN Creatinine Glucose POC Glucose 130 H Uric Acid 18.0 H Calcium Phosphorus Magnesium Iron TIBC AST ALT Total Creatine Kinase CK-MB (CK-2) Troponin T NT-Pro-B Natriuret Pep Total Protein Albumin Triglycerides HDL Cholesterol Folate Urine WBC (Auto) Urine Creatinine Urine Total Protein Vancomycin Trough 05/07/19 05/07/19 05/08/19 17:39 22:40 05:06 WBC RBC Hgb Hct MCV MCH MCHC RDW Plt Count Lymph % (Auto) [place] % (Auto) Eos % (Auto) Lymph # [place] # Eos # Seg Neutrophils % Seg Neuts % (Manual) Lymphocytes % (Manual) Monocytes % (Manual) Eosinophils % (Manual) Nucleated RBC % Seg Neutrophils # Seg Neutrophils # Man Lymphocytes # (Manual) Monocytes # (Manual) Eosinophils # (Manual) PT INR APTT Fibrinogen POC ABG pH ABG pH POC ABG pCO2 POC ABG pO2 ABG pO2 ABG HCO3 ABG O2 Saturation ABG Base Excess ABG Hemoglobin Oxyhemoglobin Sodium Potassium Chloride Carbon Dioxide BUN Creatinine Glucose POC Glucose 116 H 148 H Uric Acid Calcium Phosphorus Magnesium Iron TIBC AST ALT Total Creatine Kinase CK-MB (CK-2) Troponin T NT-Pro-B Natriuret Pep Total Protein Albumin Triglycerides HDL Cholesterol Folate Urine WBC (Auto) Urine Creatinine 292.8 H Urine Total Protein 269 H Vancomycin Trough 05/08/19 05/08/19 05/08/19 05:32 11:28 13:48 WBC RBC Hgb Hct MCV MCH MCHC RDW Plt Count Lymph % (Auto) [place] % (Auto) Eos % (Auto) Lymph # [place] # Eos # Seg Neutrophils % Seg Neuts % (Manual) Lymphocytes % (Manual) Monocytes % (Manual) Eosinophils % (Manual) Nucleated RBC % Seg Neutrophils # Seg Neutrophils # Man Lymphocytes # (Manual) Monocytes # (Manual) Eosinophils # (Manual) PT INR APTT Fibrinogen POC ABG pH ABG pH POC ABG pCO2 45.4 H POC ABG pO2 64 L ABG pO2 ABG HCO3 ABG O2 Saturation ABG Base Excess ABG Hemoglobin Oxyhemoglobin Sodium Potassium Chloride Carbon Dioxide BUN 73 H Creatinine 2.7 H Glucose 127 H POC Glucose 107 H Uric Acid Calcium 7.6 L Phosphorus Magnesium Iron TIBC AST ALT Total Creatine Kinase CK-MB (CK-2) Troponin T NT-Pro-B Natriuret Pep Total Protein Albumin Triglycerides HDL Cholesterol Folate Urine WBC (Auto) Urine Creatinine Urine Total Protein Vancomycin Trough 05/08/19 05/09/19 05/09/19 17:48 04:50 04:53 WBC RBC 3.07 L Hgb 8.5 L D Hct 29.3 L D MCV 96 H MCH MCHC 29 L RDW 18.1 H Plt Count Lymph % (Auto) [place] % (Auto) Eos % (Auto) Lymph # [place] # Eos # Seg Neutrophils % Seg Neuts % (Manual) Lymphocytes % (Manual) Monocytes % (Manual) Eosinophils % (Manual) Nucleated RBC % Seg Neutrophils # Seg Neutrophils # Man Lymphocytes # (Manual) Monocytes # (Manual) Eosinophils # (Manual) PT INR APTT Fibrinogen POC ABG pH 7.316 L ABG pH POC ABG pCO2 66.0 H POC ABG pO2 69 L ABG pO2 ABG HCO3 ABG O2 Saturation ABG Base Excess ABG Hemoglobin Oxyhemoglobin Sodium Potassium Chloride Carbon Dioxide BUN Creatinine Glucose POC Glucose 155 H Uric Acid Calcium Phosphorus Magnesium Iron TIBC AST ALT Total Creatine Kinase CK-MB (CK-2) Troponin T NT-Pro-B Natriuret Pep Total Protein Albumin Triglycerides HDL Cholesterol Folate Urine WBC (Auto) Urine Creatinine Urine Total Protein Vancomycin Trough 05/09/19 05/09/19 05/09/19 05:46 07:24 12:10 WBC RBC Hgb Hct MCV MCH MCHC RDW Plt Count Lymph % (Auto) [place] % (Auto) Eos % (Auto) Lymph # [place] # Eos # Seg Neutrophils % Seg Neuts % (Manual) Lymphocytes % (Manual) Monocytes % (Manual) Eosinophils % (Manual) Nucleated RBC % Seg Neutrophils # Seg Neutrophils # Man Lymphocytes # (Manual) Monocytes # (Manual) Eosinophils # (Manual) PT INR APTT Fibrinogen POC ABG pH ABG pH POC ABG pCO2 POC ABG pO2 ABG pO2 ABG HCO3 ABG O2 Saturation ABG Base Excess ABG Hemoglobin Oxyhemoglobin Sodium Potassium Chloride Carbon Dioxide BUN 73 H Creatinine 2.4 H Glucose 153 H POC Glucose 123 H 148 H Uric Acid Calcium 8.2 L Phosphorus Magnesium Iron TIBC AST 45 H ALT Total Creatine Kinase CK-MB (CK-2) Troponin T NT-Pro-B Natriuret Pep Total Protein 6.0 L Albumin 1.9 L Triglycerides HDL Cholesterol Folate Urine WBC (Auto) Urine Creatinine Urine Total Protein Vancomycin Trough 05/09/19 05/09/19 05/10/19 18:23 23:26 04:52 WBC RBC Hgb Hct MCV MCH MCHC RDW Plt Count Lymph % (Auto) [place] % (Auto) Eos % (Auto) Lymph # [place] # Eos # Seg Neutrophils % Seg Neuts % (Manual) Lymphocytes % (Manual) Monocytes % (Manual) Eosinophils % (Manual) Nucleated RBC % Seg Neutrophils # Seg Neutrophils # Man Lymphocytes # (Manual) Monocytes # (Manual) Eosinophils # (Manual) PT INR APTT Fibrinogen POC ABG pH 7.305 L ABG pH POC ABG pCO2 62.6 H POC ABG pO2 ABG pO2 ABG HCO3 ABG O2 Saturation ABG Base Excess ABG Hemoglobin Oxyhemoglobin Sodium Potassium Chloride Carbon Dioxide BUN Creatinine Glucose POC Glucose 147 H 121 H Uric Acid Calcium Phosphorus Magnesium Iron TIBC AST ALT Total Creatine Kinase CK-MB (CK-2) Troponin T NT-Pro-B Natriuret Pep Total Protein Albumin Triglycerides HDL Cholesterol Folate Urine WBC (Auto) Urine Creatinine Urine Total Protein Vancomycin Trough 05/10/19 05/10/19 05/10/19 05:00 05:00 05:50 WBC RBC Hgb 10.3 L Hct 33.7 L MCV MCH 27 L MCHC 31 L RDW 17.0 H Plt Count Lymph % (Auto) [place] % (Auto) Eos % (Auto) Lymph # [place] # Eos # Seg Neutrophils % Seg Neuts % (Manual) Lymphocytes % (Manual) Monocytes % (Manual) Eosinophils % (Manual) Nucleated RBC % Seg Neutrophils # Seg Neutrophils # Man Lymphocytes # (Manual) Monocytes # (Manual) Eosinophils # (Manual) PT INR APTT Fibrinogen POC ABG pH ABG pH POC ABG pCO2 POC ABG pO2 ABG pO2 ABG HCO3 ABG O2 Saturation ABG Base Excess ABG Hemoglobin Oxyhemoglobin Sodium 147 H Potassium Chloride Carbon Dioxide BUN 70 H Creatinine 2.6 H Glucose 155 H POC Glucose 158 H Uric Acid Calcium 8.2 L Phosphorus Magnesium Iron TIBC AST ALT Total Creatine Kinase CK-MB (CK-2) Troponin T NT-Pro-B Natriuret Pep Total Protein 6.1 L Albumin 2.5 L Triglycerides HDL Cholesterol Folate Urine WBC (Auto) Urine Creatinine Urine Total Protein Vancomycin Trough 05/10/19 05/11/19 05/11/19 13:14 07:26 11:40 WBC RBC Hgb Hct MCV MCH MCHC RDW Plt Count Lymph % (Auto) [place] % (Auto) Eos % (Auto) Lymph # [place] # Eos # Seg Neutrophils % Seg Neuts % (Manual) Lymphocytes % (Manual) Monocytes % (Manual) Eosinophils % (Manual) Nucleated RBC % Seg Neutrophils # Seg Neutrophils # Man Lymphocytes # (Manual) Monocytes # (Manual) Eosinophils # (Manual) PT INR APTT Fibrinogen POC ABG pH ABG pH POC ABG pCO2 48.0 H POC ABG pO2 58 L ABG pO2 ABG HCO3 ABG O2 Saturation ABG Base Excess ABG Hemoglobin Oxyhemoglobin Sodium 147 H Potassium Chloride 107.2 H Carbon Dioxide BUN 67 H Creatinine 2.6 H Glucose 121 H POC Glucose 159 H Uric Acid Calcium Phosphorus Magnesium Iron TIBC AST ALT Total Creatine Kinase CK-MB (CK-2) Troponin T NT-Pro-B Natriuret Pep Total Protein Albumin Triglycerides HDL Cholesterol Folate Urine WBC (Auto) Urine Creatinine Urine Total Protein Vancomycin Trough 05/11/19 05/11/19 05/12/19 18:13 23:46 04:40 WBC RBC Hgb Hct MCV MCH MCHC RDW Plt Count Lymph % (Auto) [place] % (Auto) Eos % (Auto) Lymph # [place] # Eos # Seg Neutrophils % Seg Neuts % (Manual) Lymphocytes % (Manual) Monocytes % (Manual) Eosinophils % (Manual) Nucleated RBC % Seg Neutrophils # Seg Neutrophils # Man Lymphocytes # (Manual) Monocytes # (Manual) Eosinophils # (Manual) PT INR APTT Fibrinogen POC ABG pH ABG pH 7.264 L POC ABG pCO2 POC ABG pO2 ABG pO2 66.8 L ABG HCO3 31.0 H ABG O2 Saturation 92.0 L ABG Base Excess ABG Hemoglobin 10.3 L Oxyhemoglobin 90.1 L Sodium Potassium Chloride Carbon Dioxide BUN Creatinine Glucose POC Glucose 120 H 121 H Uric Acid Calcium Phosphorus Magnesium Iron TIBC AST ALT Total Creatine Kinase CK-MB (CK-2) Troponin T NT-Pro-B Natriuret Pep Total Protein Albumin Triglycerides HDL Cholesterol Folate Urine WBC (Auto) Urine Creatinine Urine Total Protein Vancomycin Trough 05/12/19 05/12/19 05/12/19 04:45 04:45 11:14 WBC RBC Hgb 10.2 L Hct 32.4 L MCV MCH MCHC 31 L RDW 17.2 H Plt Count Lymph % (Auto) [place] % (Auto) Eos % (Auto) Lymph # [place] # Eos # Seg Neutrophils % Seg Neuts % (Manual) Lymphocytes % (Manual) Monocytes % (Manual) Eosinophils % (Manual) Nucleated RBC % Seg Neutrophils # Seg Neutrophils # Man Lymphocytes # (Manual) Monocytes # (Manual) Eosinophils # (Manual) PT INR APTT Fibrinogen POC ABG pH 7.284 L ABG pH POC ABG pCO2 67.8 H POC ABG pO2 ABG pO2 ABG HCO3 ABG O2 Saturation ABG Base Excess ABG Hemoglobin Oxyhemoglobin Sodium Potassium Chloride Carbon Dioxide BUN 63 H Creatinine 2.4 H Glucose 110 H POC Glucose Uric Acid Calcium Phosphorus Magnesium Iron TIBC AST ALT Total Creatine Kinase CK-MB (CK-2) Troponin T NT-Pro-B Natriuret Pep Total Protein Albumin Triglycerides HDL Cholesterol Folate Urine WBC (Auto) Urine Creatinine Urine Total Protein Vancomycin Trough 05/12/19 05/12/19 05/13/19 11:44 23:11 04:30 WBC RBC Hgb Hct MCV MCH MCHC RDW Plt Count Lymph % (Auto) [place] % (Auto) Eos % (Auto) Lymph # [place] # Eos # Seg Neutrophils % Seg Neuts % (Manual) Lymphocytes % (Manual) Monocytes % (Manual) Eosinophils % (Manual) Nucleated RBC % Seg Neutrophils # Seg Neutrophils # Man Lymphocytes # (Manual) Monocytes # (Manual) Eosinophils # (Manual) PT INR APTT Fibrinogen POC ABG pH ABG pH 7.288 L POC ABG pCO2 POC ABG pO2 ABG pO2 109.7 H ABG HCO3 30.9 H ABG O2 Saturation ABG Base Excess 3.2 H ABG Hemoglobin 9.6 L Oxyhemoglobin Sodium Potassium Chloride Carbon Dioxide BUN Creatinine Glucose POC Glucose 126 H 147 H Uric Acid Calcium Phosphorus Magnesium Iron TIBC AST ALT Total Creatine Kinase CK-MB (CK-2) Troponin T NT-Pro-B Natriuret Pep Total Protein Albumin Triglycerides HDL Cholesterol Folate Urine WBC (Auto) Urine Creatinine Urine Total Protein Vancomycin Trough 05/13/19 05/13/19 05/14/19 06:27 11:58 04:00 WBC RBC 3.16 L Hgb 9.3 L Hct 27.9 L MCV MCH MCHC RDW 17.1 H Plt Count Lymph % (Auto) [place] % (Auto) Eos % (Auto) Lymph # [place] # Eos # Seg Neutrophils % Seg Neuts % (Manual) Lymphocytes % (Manual) Monocytes % (Manual) Eosinophils % (Manual) Nucleated RBC % Seg Neutrophils # Seg Neutrophils # Man Lymphocytes # (Manual) Monocytes # (Manual) Eosinophils # (Manual) PT INR APTT Fibrinogen POC ABG pH ABG pH POC ABG pCO2 POC ABG pO2 ABG pO2 ABG HCO3 ABG O2 Saturation ABG Base Excess ABG Hemoglobin Oxyhemoglobin Sodium Potassium Chloride Carbon Dioxide BUN Creatinine Glucose POC Glucose 113 H 130 H Uric Acid Calcium Phosphorus Magnesium Iron TIBC AST ALT Total Creatine Kinase CK-MB (CK-2) Troponin T NT-Pro-B Natriuret Pep Total Protein Albumin Triglycerides HDL Cholesterol Folate Urine WBC (Auto) Urine Creatinine Urine Total Protein Vancomycin Trough 05/14/19 05/14/19 05/14/19 04:00 04:34 05:32 WBC RBC Hgb Hct MCV MCH MCHC RDW Plt Count Lymph % (Auto) [place] % (Auto) Eos % (Auto) Lymph # [place] # Eos # Seg Neutrophils % Seg Neuts % (Manual) Lymphocytes % (Manual) Monocytes % (Manual) Eosinophils % (Manual) Nucleated RBC % Seg Neutrophils # Seg Neutrophils # Man Lymphocytes # (Manual) Monocytes # (Manual) Eosinophils # (Manual) PT INR APTT Fibrinogen POC ABG pH 7.328 L ABG pH POC ABG pCO2 61.7 H POC ABG pO2 ABG pO2 ABG HCO3 ABG O2 Saturation ABG Base Excess ABG Hemoglobin Oxyhemoglobin Sodium 135 L D Potassium Chloride Carbon Dioxide BUN 57 H Creatinine 2.2 H Glucose 115 H POC Glucose 115 H Uric Acid Calcium 8.1 L Phosphorus Magnesium Iron TIBC AST ALT Total Creatine Kinase CK-MB (CK-2) Troponin T NT-Pro-B Natriuret Pep Total Protein Albumin Triglycerides HDL Cholesterol Folate Urine WBC (Auto) Urine Creatinine Urine Total Protein Vancomycin Trough 05/14/19 05/15/19 05/15/19 12:11 05:10 05:24 WBC RBC Hgb Hct MCV MCH MCHC RDW Plt Count Lymph % (Auto) [place] % (Auto) Eos % (Auto) Lymph # [place] # Eos # Seg Neutrophils % Seg Neuts % (Manual) Lymphocytes % (Manual) Monocytes % (Manual) Eosinophils % (Manual) Nucleated RBC % Seg Neutrophils # Seg Neutrophils # Man Lymphocytes # (Manual) Monocytes # (Manual) Eosinophils # (Manual) PT INR APTT Fibrinogen POC ABG pH ABG pH 7.342 L POC ABG pCO2 POC ABG pO2 ABG pO2 79.1 L ABG HCO3 28.2 H ABG O2 Saturation ABG Base Excess ABG Hemoglobin 7.0 L Oxyhemoglobin 94.4 L Sodium Potassium Chloride Carbon Dioxide BUN Creatinine Glucose POC Glucose 110 H 116 H Uric Acid Calcium Phosphorus Magnesium Iron TIBC AST ALT Total Creatine Kinase CK-MB (CK-2) Troponin T NT-Pro-B Natriuret Pep Total Protein Albumin Triglycerides HDL Cholesterol Folate Urine WBC (Auto) Urine Creatinine Urine Total Protein Vancomycin Trough 05/15/19 05/15/19 05/16/19 09:00 18:12 04:50 WBC RBC Hgb Hct MCV MCH MCHC RDW Plt Count Lymph % (Auto) [place] % (Auto) Eos % (Auto) Lymph # [place] # Eos # Seg Neutrophils % Seg Neuts % (Manual) Lymphocytes % (Manual) Monocytes % (Manual) Eosinophils % (Manual) Nucleated RBC % Seg Neutrophils # Seg Neutrophils # Man Lymphocytes # (Manual) Monocytes # (Manual) Eosinophils # (Manual) PT INR APTT Fibrinogen POC ABG pH ABG pH 7.250 L POC ABG pCO2 POC ABG pO2 ABG pO2 76.4 L ABG HCO3 ABG O2 Saturation 94.6 L ABG Base Excess -3.1 L ABG Hemoglobin 9.7 L Oxyhemoglobin 92.4 L Sodium Potassium Chloride Carbon Dioxide BUN Creatinine Glucose POC Glucose 110 H Uric Acid Calcium Phosphorus Magnesium Iron TIBC AST ALT Total Creatine Kinase CK-MB (CK-2) Troponin T NT-Pro-B Natriuret Pep Total Protein Albumin Triglycerides HDL Cholesterol Folate Urine WBC (Auto) Urine Creatinine Urine Total Protein Vancomycin Trough 20.5 H 05/16/19 05/16/19 05/17/19 05:50 05:50 04:20 WBC RBC 3.36 L 3.44 L Hgb 9.4 L 9.3 L Hct 29.1 L 29.7 L MCV MCH 27 L MCHC 31 L RDW 17.6 H 17.6 H Plt Count Lymph % (Auto) [place] % (Auto) Eos % (Auto) Lymph # [place] # Eos # Seg Neutrophils % Seg Neuts % (Manual) 77.0 H Lymphocytes % (Manual) 5.0 L Monocytes % (Manual) Eosinophils % (Manual) 10.0 H Nucleated RBC % Seg Neutrophils # Seg Neutrophils # Man Lymphocytes # (Manual) 0.5 L Monocytes # (Manual) Eosinophils # (Manual) 0.9 H PT INR APTT Fibrinogen POC ABG pH ABG pH POC ABG pCO2 POC ABG pO2 ABG pO2 ABG HCO3 ABG O2 Saturation ABG Base Excess ABG Hemoglobin Oxyhemoglobin Sodium Potassium Chloride Carbon Dioxide BUN 83 H Creatinine 4.4 H D Glucose 118 H POC Glucose Uric Acid Calcium Phosphorus Magnesium Iron TIBC AST ALT Total Creatine Kinase CK-MB (CK-2) Troponin T NT-Pro-B Natriuret Pep Total Protein Albumin Triglycerides HDL Cholesterol Folate Urine WBC (Auto) Urine Creatinine Urine Total Protein Vancomycin Trough 05/17/19 05/17/19 05/18/19 04:30 Unknown 01:50 WBC RBC 3.49 L Hgb 9.4 L Hct 30.0 L MCV MCH 27 L MCHC 31 L RDW 17.8 H Plt Count Lymph % (Auto) 7.9 L [place] % (Auto) 15.4 H Eos % (Auto) 6.3 H Lymph # 0.7 L [place] # 1.4 H Eos # 0.6 H Seg Neutrophils % 70.2 H Seg Neuts % (Manual) Lymphocytes % (Manual) Monocytes % (Manual) Eosinophils % (Manual) Nucleated RBC % Seg Neutrophils # Seg Neutrophils # Man Lymphocytes # (Manual) Monocytes # (Manual) Eosinophils # (Manual) PT INR APTT Fibrinogen POC ABG pH ABG pH 7.272 L POC ABG pCO2 POC ABG pO2 ABG pO2 75.7 L ABG HCO3 ABG O2 Saturation 93.8 L ABG Base Excess -3.0 L ABG Hemoglobin 7.8 L Oxyhemoglobin 91.6 L Sodium Potassium 5.2 H Chloride Carbon Dioxide BUN 96 H Creatinine 5.7 H Glucose 112 H POC Glucose Uric Acid Calcium Phosphorus Magnesium Iron TIBC AST ALT Total Creatine Kinase CK-MB (CK-2) Troponin T NT-Pro-B Natriuret Pep Total Protein Albumin Triglycerides 173 H HDL Cholesterol Folate Urine WBC (Auto) Urine Creatinine Urine Total Protein Vancomycin Trough 05/18/19 05/18/19 05/18/19 01:50 04:41 05:24 WBC RBC Hgb Hct MCV MCH MCHC RDW Plt Count Lymph % (Auto) [place] % (Auto) Eos % (Auto) Lymph # [place] # Eos # Seg Neutrophils % Seg Neuts % (Manual) Lymphocytes % (Manual) Monocytes % (Manual) Eosinophils % (Manual) Nucleated RBC % Seg Neutrophils # Seg Neutrophils # Man Lymphocytes # (Manual) Monocytes # (Manual) Eosinophils # (Manual) PT INR APTT Fibrinogen POC ABG pH 7.260 L ABG pH POC ABG pCO2 54.9 H POC ABG pO2 ABG pO2 ABG HCO3 ABG O2 Saturation ABG Base Excess ABG Hemoglobin Oxyhemoglobin Sodium Potassium 5.6 H Chloride Carbon Dioxide BUN 104 H Creatinine 6.6 H Glucose 107 H POC Glucose 106 H Uric Acid Calcium Phosphorus Magnesium Iron TIBC AST ALT Total Creatine Kinase CK-MB (CK-2) Troponin T NT-Pro-B Natriuret Pep Total Protein Albumin Triglycerides HDL Cholesterol Folate Urine WBC (Auto) Urine Creatinine Urine Total Protein Vancomycin Trough 05/18/19 05/18/19 05/19/19 11:34 23:26 04:06 WBC RBC 3.22 L Hgb 8.8 L Hct 27.3 L MCV MCH 27 L MCHC RDW 17.5 H Plt Count Lymph % (Auto) [place] % (Auto) Eos % (Auto) Lymph # [place] # Eos # Seg Neutrophils % Seg Neuts % (Manual) 74.0 H Lymphocytes % (Manual) 4.0 L Monocytes % (Manual) 11.0 H Eosinophils % (Manual) 7.0 H Nucleated RBC % 1.0 H Seg Neutrophils # Seg Neutrophils # Man Lymphocytes # (Manual) 0.3 L Monocytes # (Manual) 0.9 H Eosinophils # (Manual) 0.6 H PT INR APTT Fibrinogen POC ABG pH ABG pH POC ABG pCO2 POC ABG pO2 ABG pO2 ABG HCO3 ABG O2 Saturation ABG Base Excess ABG Hemoglobin Oxyhemoglobin Sodium Potassium Chloride Carbon Dioxide BUN Creatinine Glucose POC Glucose 152 H 112 H Uric Acid Calcium Phosphorus Magnesium Iron TIBC AST ALT Total Creatine Kinase CK-MB (CK-2) Troponin T NT-Pro-B Natriuret Pep Total Protein Albumin Triglycerides HDL Cholesterol Folate Urine WBC (Auto) Urine Creatinine Urine Total Protein Vancomycin Trough 05/19/19 05/19/19 05/20/19 04:06 06:00 04:00 WBC RBC 3.40 L Hgb 9.2 L Hct 28.6 L MCV MCH 27 L MCHC RDW 17.6 H Plt Count Lymph % (Auto) [place] % (Auto) Eos % (Auto) Lymph # [place] # Eos # Seg Neutrophils % Seg Neuts % (Manual) Lymphocytes % (Manual) 11.0 L Monocytes % (Manual) Eosinophils % (Manual) 14.0 H Nucleated RBC % Seg Neutrophils # Seg Neutrophils # Man Lymphocytes # (Manual) 1.1 L Monocytes # (Manual) Eosinophils # (Manual) 1.4 H PT INR APTT Fibrinogen POC ABG pH ABG pH 7.315 L POC ABG pCO2 POC ABG pO2 ABG pO2 ABG HCO3 ABG O2 Saturation ABG Base Excess ABG Hemoglobin 6.7 L Oxyhemoglobin 94.1 L Sodium Potassium 5.2 H Chloride Carbon Dioxide 21 L BUN 110 H Creatinine 7.2 H Glucose POC Glucose Uric Acid Calcium 8.3 L Phosphorus Magnesium Iron TIBC AST ALT Total Creatine Kinase CK-MB (CK-2) Troponin T NT-Pro-B Natriuret Pep Total Protein Albumin Triglycerides HDL Cholesterol Folate Urine WBC (Auto) Urine Creatinine Urine Total Protein Vancomycin Trough 05/20/19 05/20/19 05/20/19 04:00 05:48 12:00 WBC RBC Hgb Hct MCV MCH MCHC RDW Plt Count Lymph % (Auto) [place] % (Auto) Eos % (Auto) Lymph # [place] # Eos # Seg Neutrophils % Seg Neuts % (Manual) Lymphocytes % (Manual) Monocytes % (Manual) Eosinophils % (Manual) Nucleated RBC % Seg Neutrophils # Seg Neutrophils # Man Lymphocytes # (Manual) Monocytes # (Manual) Eosinophils # (Manual) PT INR APTT Fibrinogen POC ABG pH ABG pH 7.281 L POC ABG pCO2 POC ABG pO2 ABG pO2 78.7 L ABG HCO3 ABG O2 Saturation 94.5 L ABG Base Excess -3.0 L ABG Hemoglobin 9.9 L Oxyhemoglobin 92.5 L Sodium 136 L Potassium 5.7 H Chloride 96.3 L Carbon Dioxide BUN 125 H Creatinine 8.3 H Glucose 106 H POC Glucose Uric Acid Calcium Phosphorus Magnesium Iron TIBC AST ALT Total Creatine Kinase CK-MB (CK-2) Troponin T NT-Pro-B Natriuret Pep Total Protein Albumin Triglycerides HDL Cholesterol Folate Urine WBC (Auto) 26.0 H Urine Creatinine Urine Total Protein Vancomycin Trough 05/21/19 05/21/19 05/21/19 04:33 05:20 Unknown WBC RBC 3.38 L Hgb 9.1 L Hct 28.5 L MCV MCH 27 L MCHC RDW 17.4 H Plt Count Lymph % (Auto) [place] % (Auto) Eos % (Auto) Lymph # [place] # Eos # Seg Neutrophils % Seg Neuts % (Manual) 71.0 H Lymphocytes % (Manual) 1.0 L Monocytes % (Manual) 11.0 H Eosinophils % (Manual) 6.0 H Nucleated RBC % Seg Neutrophils # Seg Neutrophils # Man Lymphocytes # (Manual) 0.1 L Monocytes # (Manual) 1.0 H Eosinophils # (Manual) 0.6 H PT INR APTT Fibrinogen POC ABG pH 7.315 L ABG pH POC ABG pCO2 57.8 H POC ABG pO2 68 L ABG pO2 ABG HCO3 ABG O2 Saturation ABG Base Excess ABG Hemoglobin Oxyhemoglobin Sodium Potassium Chloride 96.3 L Carbon Dioxide BUN 102 H Creatinine 7.0 H Glucose 103 H POC Glucose Uric Acid Calcium Phosphorus Magnesium Iron TIBC AST ALT Total Creatine Kinase CK-MB (CK-2) Troponin T NT-Pro-B Natriuret Pep Total Protein Albumin Triglycerides HDL Cholesterol Folate Urine WBC (Auto) Urine Creatinine Urine Total Protein Vancomycin Trough 05/22/19 05/22/19 05/22/19 03:54 06:25 06:25 WBC RBC 3.22 L Hgb 8.6 L Hct 27.0 L MCV MCH 27 L MCHC RDW 17.5 H Plt Count Lymph % (Auto) [place] % (Auto) 16.2 H Eos % (Auto) 10.8 H Lymph # [place] # 1.3 H Eos # 0.9 H Seg Neutrophils % Seg Neuts % (Manual) Lymphocytes % (Manual) 10.0 L Monocytes % (Manual) 13.0 H Eosinophils % (Manual) 8.0 H Nucleated RBC % Seg Neutrophils # Seg Neutrophils # Man Lymphocytes # (Manual) 0.9 L Monocytes # (Manual) 1.1 H Eosinophils # (Manual) 0.7 H PT INR APTT Fibrinogen POC ABG pH 7.313 L ABG pH POC ABG pCO2 55.0 H POC ABG pO2 ABG pO2 ABG HCO3 ABG O2 Saturation ABG Base Excess ABG Hemoglobin Oxyhemoglobin Sodium 135 L Potassium Chloride 94.3 L Carbon Dioxide BUN 117 H Creatinine 7.8 H Glucose POC Glucose Uric Acid Calcium 8.2 L Phosphorus Magnesium Iron TIBC AST ALT Total Creatine Kinase CK-MB (CK-2) Troponin T NT-Pro-B Natriuret Pep Total Protein Albumin Triglycerides HDL Cholesterol Folate Urine WBC (Auto) Urine Creatinine Urine Total Protein Vancomycin Trough 05/23/19 05/24/19 05/24/19 05:21 05:00 05:00 WBC RBC 3.18 L Hgb 8.5 L Hct 26.7 L MCV MCH 27 L MCHC RDW 17.9 H Plt Count Lymph % (Auto) [place] % (Auto) Eos % (Auto) Lymph # [place] # Eos # Seg Neutrophils % Seg Neuts % (Manual) Lymphocytes % (Manual) Monocytes % (Manual) Eosinophils % (Manual) Nucleated RBC % Seg Neutrophils # Seg Neutrophils # Man Lymphocytes # (Manual) Monocytes # (Manual) Eosinophils # (Manual) PT INR APTT Fibrinogen POC ABG pH ABG pH POC ABG pCO2 49.7 H POC ABG pO2 73 L ABG pO2 ABG HCO3 ABG O2 Saturation ABG Base Excess ABG Hemoglobin Oxyhemoglobin Sodium Potassium Chloride 95.7 L Carbon Dioxide BUN 97 H Creatinine 6.5 H Glucose POC Glucose Uric Acid Calcium 8.0 L Phosphorus Magnesium Iron TIBC AST ALT Total Creatine Kinase CK-MB (CK-2) Troponin T NT-Pro-B Natriuret Pep Total Protein Albumin Triglycerides HDL Cholesterol Folate Urine WBC (Auto) Urine Creatinine Urine Total Protein Vancomycin Trough 05/24/19 05/25/19 05/25/19 06:17 04:22 15:45 WBC RBC 2.98 L Hgb 8.1 L Hct 24.9 L MCV MCH 27 L MCHC RDW 17.8 H Plt Count Lymph % (Auto) [place] % (Auto) Eos % (Auto) Lymph # [place] # Eos # Seg Neutrophils % Seg Neuts % (Manual) Lymphocytes % (Manual) Monocytes % (Manual) Eosinophils % (Manual) Nucleated RBC % Seg Neutrophils # Seg Neutrophils # Man Lymphocytes # (Manual) Monocytes # (Manual) Eosinophils # (Manual) PT INR APTT Fibrinogen POC ABG pH 7.330 L 7.313 L ABG pH POC ABG pCO2 52.5 H 51.1 H POC ABG pO2 77 L ABG pO2 ABG HCO3 ABG O2 Saturation ABG Base Excess ABG Hemoglobin Oxyhemoglobin Sodium Potassium Chloride Carbon Dioxide BUN Creatinine Glucose POC Glucose Uric Acid Calcium Phosphorus Magnesium Iron TIBC AST ALT Total Creatine Kinase CK-MB (CK-2) Troponin T NT-Pro-B Natriuret Pep Total Protein Albumin Triglycerides HDL Cholesterol Folate Urine WBC (Auto) Urine Creatinine Urine Total Protein Vancomycin Trough 1205/26/19 05/26/19 15:45 04:13 05:00 WBC RBC 3.10 L Hgb 8.4 L Hct 26.0 L MCV MCH 27 L MCHC RDW 17.4 H Plt Count Lymph % (Auto) [place] % (Auto) Eos % (Auto) Lymph # [place] # Eos # Seg Neutrophils % Seg Neuts % (Manual) Lymphocytes % (Manual) Monocytes % (Manual) Eosinophils % (Manual) Nucleated RBC % Seg Neutrophils # Seg Neutrophils # Man Lymphocytes # (Manual) Monocytes # (Manual) Eosinophils # (Manual) PT INR APTT Fibrinogen POC ABG pH 7.295 L ABG pH POC ABG pCO2 56.5 H POC ABG pO2 63 L ABG pO2 ABG HCO3 ABG O2 Saturation ABG Base Excess ABG Hemoglobin Oxyhemoglobin Sodium 136 L Potassium Chloride 96.8 L Carbon Dioxide BUN 83 H Creatinine 5.9 H Glucose POC Glucose Uric Acid Calcium 7.6 L Phosphorus Magnesium Iron TIBC AST ALT Total Creatine Kinase CK-MB (CK-2) Troponin T NT-Pro-B Natriuret Pep Total Protein Albumin Triglycerides HDL Cholesterol Folate Urine WBC (Auto) Urine Creatinine Urine Total Protein Vancomycin Trough 05/26/19 05/27/19 05/28/19 05:00 04:48 04:47 WBC RBC Hgb Hct MCV MCH MCHC RDW Plt Count Lymph % (Auto) [place] % (Auto) Eos % (Auto) Lymph # [place] # Eos # Seg Neutrophils % Seg Neuts % (Manual) Lymphocytes % (Manual) Monocytes % (Manual) Eosinophils % (Manual) Nucleated RBC % Seg Neutrophils # Seg Neutrophils # Man Lymphocytes # (Manual) Monocytes # (Manual) Eosinophils # (Manual) PT INR APTT Fibrinogen POC ABG pH 7.323 L ABG pH 7.284 L POC ABG pCO2 56.2 H POC ABG pO2 ABG pO2 71.6 L ABG HCO3 ABG O2 Saturation 92.0 L ABG Base Excess ABG Hemoglobin 7.7 L Oxyhemoglobin 89.9 L Sodium 136 L Potassium Chloride 95.3 L Carbon Dioxide BUN 96 H Creatinine 6.5 H Glucose 108 H POC Glucose Uric Acid Calcium 7.6 L Phosphorus Magnesium Iron TIBC AST ALT Total Creatine Kinase CK-MB (CK-2) Troponin T NT-Pro-B Natriuret Pep Total Protein Albumin Triglycerides HDL Cholesterol Folate Urine WBC (Auto) Urine Creatinine Urine Total Protein Vancomycin Trough 05/28/19 05/29/19 05/29/19 12:30 12:47 23:44 WBC RBC Hgb Hct MCV MCH MCHC RDW Plt Count Lymph % (Auto) [place] % (Auto) Eos % (Auto) Lymph # [place] # Eos # Seg Neutrophils % Seg Neuts % (Manual) Lymphocytes % (Manual) Monocytes % (Manual) Eosinophils % (Manual) Nucleated RBC % Seg Neutrophils # Seg Neutrophils # Man Lymphocytes # (Manual) Monocytes # (Manual) Eosinophils # (Manual) PT INR APTT Fibrinogen POC ABG pH ABG pH POC ABG pCO2 POC ABG pO2 ABG pO2 ABG HCO3 ABG O2 Saturation ABG Base Excess ABG Hemoglobin Oxyhemoglobin Sodium 135 L Potassium Chloride 95.3 L Carbon Dioxide BUN 82 H Creatinine 6.0 H Glucose POC Glucose 136 H 159 H Uric Acid Calcium 7.5 L Phosphorus Magnesium Iron TIBC AST ALT Total Creatine Kinase CK-MB (CK-2) Troponin T NT-Pro-B Natriuret Pep Total Protein Albumin Triglycerides HDL Cholesterol Folate Urine WBC (Auto) Urine Creatinine Urine Total Protein Vancomycin Trough 05/30/19 05/30/19 05/30/19 04:30 05:38 12:00 WBC RBC 3.01 L Hgb 8.2 L Hct 25.3 L MCV MCH 27 L MCHC RDW 17.5 H Plt Count Lymph % (Auto) [place] % (Auto) Eos % (Auto) Lymph # [place] # Eos # Seg Neutrophils % Seg Neuts % (Manual) 80.0 H Lymphocytes % (Manual) 10.0 L Monocytes % (Manual) Eosinophils % (Manual) Nucleated RBC % Seg Neutrophils # Seg Neutrophils # Man 8.0 H Lymphocytes # (Manual) 1.0 L Monocytes # (Manual) Eosinophils # (Manual) PT INR APTT Fibrinogen POC ABG pH ABG pH POC ABG pCO2 POC ABG pO2 73 L ABG pO2 ABG HCO3 ABG O2 Saturation ABG Base Excess ABG Hemoglobin Oxyhemoglobin Sodium Potassium Chloride Carbon Dioxide BUN Creatinine Glucose POC Glucose 166 H Uric Acid Calcium Phosphorus Magnesium Iron TIBC AST ALT Total Creatine Kinase CK-MB (CK-2) Troponin T NT-Pro-B Natriuret Pep Total Protein Albumin Triglycerides HDL Cholesterol Folate Urine WBC (Auto) Urine Creatinine Urine Total Protein Vancomycin Trough 05/30/19 05/31/19 05/31/19 23:45 04:07 13:04 WBC 14.3 H RBC 2.88 L Hgb 7.7 L Hct 23.9 L MCV 83 L MCH 27 L MCHC RDW 17.8 H Plt Count Lymph % (Auto) [place] % (Auto) Eos % (Auto) Lymph # [place] # Eos # Seg Neutrophils % Seg Neuts % (Manual) 83.0 H Lymphocytes % (Manual) 11.0 L Monocytes % (Manual) Eosinophils % (Manual) Nucleated RBC % Seg Neutrophils # Seg Neutrophils # Man 11.9 H Lymphocytes # (Manual) Monocytes # (Manual) 0.9 H Eosinophils # (Manual) PT INR APTT Fibrinogen POC ABG pH ABG pH POC ABG pCO2 47.4 H POC ABG pO2 ABG pO2 ABG HCO3 ABG O2 Saturation ABG Base Excess ABG Hemoglobin Oxyhemoglobin Sodium Potassium Chloride Carbon Dioxide BUN Creatinine Glucose POC Glucose 209 H Uric Acid Calcium Phosphorus Magnesium Iron TIBC AST ALT Total Creatine Kinase CK-MB (CK-2) Troponin T NT-Pro-B Natriuret Pep Total Protein Albumin Triglycerides HDL Cholesterol Folate Urine WBC (Auto) Urine Creatinine Urine Total Protein Vancomycin Trough 05/31/19 05/31/19 06/01/19 13:04 16:42 00:15 WBC RBC Hgb Hct MCV MCH MCHC RDW Plt Count Lymph % (Auto) [place] % (Auto) Eos % (Auto) Lymph # [place] # Eos # Seg Neutrophils % Seg Neuts % (Manual) Lymphocytes % (Manual) Monocytes % (Manual) Eosinophils % (Manual) Nucleated RBC % Seg Neutrophils # Seg Neutrophils # Man Lymphocytes # (Manual) Monocytes # (Manual) Eosinophils # (Manual) PT INR APTT Fibrinogen POC ABG pH ABG pH POC ABG pCO2 POC ABG pO2 ABG pO2 ABG HCO3 ABG O2 Saturation ABG Base Excess ABG Hemoglobin Oxyhemoglobin Sodium 129 L Potassium Chloride 88.6 L Carbon Dioxide 19 L BUN 117 H Creatinine 6.7 H Glucose 205 H POC Glucose 228 H 223 H Uric Acid Calcium 7.4 L Phosphorus 7.40 H Magnesium Iron TIBC AST 58 H ALT 149 H Total Creatine Kinase CK-MB (CK-2) Troponin T NT-Pro-B Natriuret Pep Total Protein 6.0 L Albumin 2.5 L Triglycerides HDL Cholesterol Folate Urine WBC (Auto) Urine Creatinine Urine Total Protein Vancomycin Trough 06/01/19 06/01/19 06/01/19 04:33 05:27 12:31 WBC RBC Hgb Hct MCV MCH MCHC RDW Plt Count Lymph % (Auto) [place] % (Auto) Eos % (Auto) Lymph # [place] # Eos # Seg Neutrophils % Seg Neuts % (Manual) Lymphocytes % (Manual) Monocytes % (Manual) Eosinophils % (Manual) Nucleated RBC % Seg Neutrophils # Seg Neutrophils # Man Lymphocytes # (Manual) Monocytes # (Manual) Eosinophils # (Manual) PT INR APTT Fibrinogen POC ABG pH ABG pH POC ABG pCO2 POC ABG pO2 ABG pO2 56.9 L ABG HCO3 ABG O2 Saturation 85.9 L ABG Base Excess ABG Hemoglobin 8.1 L Oxyhemoglobin 83.6 L Sodium Potassium Chloride Carbon Dioxide BUN Creatinine Glucose POC Glucose 183 H 217 H Uric Acid Calcium Phosphorus Magnesium Iron TIBC AST ALT Total Creatine Kinase CK-MB (CK-2) Troponin T NT-Pro-B Natriuret Pep Total Protein Albumin Triglycerides HDL Cholesterol Folate Urine WBC (Auto) Urine Creatinine Urine Total Protein Vancomycin Trough 06/01/19 06/02/19 06/02/19 18:20 00:00 05:33 WBC RBC Hgb Hct MCV MCH MCHC RDW Plt Count Lymph % (Auto) [place] % (Auto) Eos % (Auto) Lymph # [place] # Eos # Seg Neutrophils % Seg Neuts % (Manual) Lymphocytes % (Manual) Monocytes % (Manual) Eosinophils % (Manual) Nucleated RBC % Seg Neutrophils # Seg Neutrophils # Man Lymphocytes # (Manual) Monocytes # (Manual) Eosinophils # (Manual) PT INR APTT Fibrinogen POC ABG pH ABG pH POC ABG pCO2 POC ABG pO2 ABG pO2 ABG HCO3 ABG O2 Saturation ABG Base Excess ABG Hemoglobin Oxyhemoglobin Sodium Potassium Chloride Carbon Dioxide BUN Creatinine Glucose POC Glucose 265 H 279 H 259 H Uric Acid Calcium Phosphorus Magnesium Iron TIBC AST ALT Total Creatine Kinase CK-MB (CK-2) Troponin T NT-Pro-B Natriuret Pep Total Protein Albumin Triglycerides HDL Cholesterol Folate Urine WBC (Auto) Urine Creatinine Urine Total Protein Vancomycin Trough 06/02/19 06/02/19 06/02/19 11:06 11:06 11:42 WBC 13.1 H RBC 2.92 L Hgb 7.9 L Hct 24.4 L MCV MCH 27 L MCHC RDW 17.4 H Plt Count Lymph % (Auto) [place] % (Auto) Eos % (Auto) Lymph # [place] # Eos # Seg Neutrophils % Seg Neuts % (Manual) 78.0 H Lymphocytes % (Manual) 12.0 L Monocytes % (Manual) 10.0 H Eosinophils % (Manual) Nucleated RBC % Seg Neutrophils # Seg Neutrophils # Man 10.2 H Lymphocytes # (Manual) Monocytes # (Manual) 1.3 H Eosinophils # (Manual) PT INR APTT Fibrinogen POC ABG pH ABG pH POC ABG pCO2 POC ABG pO2 ABG pO2 ABG HCO3 ABG O2 Saturation ABG Base Excess ABG Hemoglobin Oxyhemoglobin Sodium 135 L Potassium Chloride 94.7 L Carbon Dioxide 21 L BUN 107 H Creatinine 4.5 H Glucose 286 H POC Glucose 263 H Uric Acid Calcium 7.9 L Phosphorus 6.30 H Magnesium Iron TIBC AST ALT 104 H Total Creatine Kinase CK-MB (CK-2) Troponin T NT-Pro-B Natriuret Pep Total Protein 6.0 L Albumin 2.7 L Triglycerides HDL Cholesterol Folate Urine WBC (Auto) Urine Creatinine Urine Total Protein Vancomycin Trough 06/02/19 06/02/19 06/03/19 18:17 23:55 05:30 WBC RBC Hgb Hct MCV MCH MCHC RDW Plt Count Lymph % (Auto) [place] % (Auto) Eos % (Auto) Lymph # [place] # Eos # Seg Neutrophils % Seg Neuts % (Manual) Lymphocytes % (Manual) Monocytes % (Manual) Eosinophils % (Manual) Nucleated RBC % Seg Neutrophils # Seg Neutrophils # Man Lymphocytes # (Manual) Monocytes # (Manual) Eosinophils # (Manual) PT INR APTT Fibrinogen POC ABG pH ABG pH POC ABG pCO2 POC ABG pO2 ABG pO2 ABG HCO3 ABG O2 Saturation ABG Base Excess ABG Hemoglobin Oxyhemoglobin Sodium Potassium Chloride 95.1 L Carbon Dioxide 21 L BUN 119 H Creatinine 4.1 H Glucose 330 H POC Glucose 276 H 244 H Uric Acid Calcium 8.1 L Phosphorus Magnesium Iron TIBC AST ALT 98 H Total Creatine Kinase CK-MB (CK-2) Troponin T NT-Pro-B Natriuret Pep Total Protein 5.8 L Albumin 2.8 L Triglycerides HDL Cholesterol Folate Urine WBC (Auto) Urine Creatinine Urine Total Protein Vancomycin Trough 06/03/19 06/03/19 06/03/19 05:30 06:04 09:42 WBC 12.8 H RBC 3.01 L Hgb 8.2 L Hct 25.4 L MCV MCH 27 L MCHC RDW 17.5 H Plt Count Lymph % (Auto) [place] % (Auto) Eos % (Auto) Lymph # [place] # Eos # Seg Neutrophils % Seg Neuts % (Manual) 78.0 H Lymphocytes % (Manual) 10.0 L Monocytes % (Manual) 12.0 H Eosinophils % (Manual) Nucleated RBC % Seg Neutrophils # Seg Neutrophils # Man 10.0 H Lymphocytes # (Manual) Monocytes # (Manual) 1.5 H Eosinophils # (Manual) PT INR APTT Fibrinogen POC ABG pH ABG pH POC ABG pCO2 POC ABG pO2 ABG pO2 ABG HCO3 ABG O2 Saturation ABG Base Excess ABG Hemoglobin Oxyhemoglobin Sodium Potassium Chloride Carbon Dioxide BUN 106 H Creatinine Glucose POC Glucose 254 H Uric Acid Calcium Phosphorus Magnesium Iron TIBC AST ALT Total Creatine Kinase CK-MB (CK-2) Troponin T NT-Pro-B Natriuret Pep Total Protein Albumin Triglycerides HDL Cholesterol Folate Urine WBC (Auto) Urine Creatinine Urine Total Protein Vancomycin Trough 06/03/19 06/03/19 06/03/19 12:52 17:25 23:37 WBC RBC Hgb Hct MCV MCH MCHC RDW Plt Count Lymph % (Auto) [place] % (Auto) Eos % (Auto) Lymph # [place] # Eos # Seg Neutrophils % Seg Neuts % (Manual) Lymphocytes % (Manual) Monocytes % (Manual) Eosinophils % (Manual) Nucleated RBC % Seg Neutrophils # Seg Neutrophils # Man Lymphocytes # (Manual) Monocytes # (Manual) Eosinophils # (Manual) PT INR APTT Fibrinogen POC ABG pH ABG pH POC ABG pCO2 POC ABG pO2 ABG pO2 ABG HCO3 ABG O2 Saturation ABG Base Excess ABG Hemoglobin Oxyhemoglobin Sodium Potassium Chloride Carbon Dioxide BUN Creatinine Glucose POC Glucose 274 H 285 H 310 H Uric Acid Calcium Phosphorus Magnesium Iron TIBC AST ALT Total Creatine Kinase CK-MB (CK-2) Troponin T NT-Pro-B Natriuret Pep Total Protein Albumin Triglycerides HDL Cholesterol Folate Urine WBC (Auto) Urine Creatinine Urine Total Protein Vancomycin Trough 06/04/19 06/04/19 06/04/19 04:57 05:03 11:50 WBC RBC Hgb Hct MCV MCH MCHC RDW Plt Count Lymph % (Auto) [place] % (Auto) Eos % (Auto) Lymph # [place] # Eos # Seg Neutrophils % Seg Neuts % (Manual) Lymphocytes % (Manual) Monocytes % (Manual) Eosinophils % (Manual) Nucleated RBC % Seg Neutrophils # Seg Neutrophils # Man Lymphocytes # (Manual) Monocytes # (Manual) Eosinophils # (Manual) PT INR APTT Fibrinogen POC ABG pH 7.488 H ABG pH POC ABG pCO2 POC ABG pO2 ABG pO2 ABG HCO3 ABG O2 Saturation ABG Base Excess ABG Hemoglobin Oxyhemoglobin Sodium Potassium Chloride Carbon Dioxide BUN Creatinine Glucose POC Glucose 275 H 279 H Uric Acid Calcium Phosphorus Magnesium Iron TIBC AST ALT Total Creatine Kinase CK-MB (CK-2) Troponin T NT-Pro-B Natriuret Pep Total Protein Albumin Triglycerides HDL Cholesterol Folate Urine WBC (Auto) Urine Creatinine Urine Total Protein Vancomycin Trough 06/04/19 06/04/19 06/04/19 18:32 22:03 23:55 WBC RBC Hgb Hct MCV MCH MCHC RDW Plt Count Lymph % (Auto) [place] % (Auto) Eos % (Auto) Lymph # [place] # Eos # Seg Neutrophils % Seg Neuts % (Manual) Lymphocytes % (Manual) Monocytes % (Manual) Eosinophils % (Manual) Nucleated RBC % Seg Neutrophils # Seg Neutrophils # Man Lymphocytes # (Manual) Monocytes # (Manual) Eosinophils # (Manual) PT INR APTT Fibrinogen POC ABG pH ABG pH POC ABG pCO2 POC ABG pO2 ABG pO2 ABG HCO3 ABG O2 Saturation ABG Base Excess ABG Hemoglobin Oxyhemoglobin Sodium Potassium Chloride Carbon Dioxide BUN Creatinine Glucose POC Glucose 267 H 307 H 292 H Uric Acid Calcium Phosphorus Magnesium Iron TIBC AST ALT Total Creatine Kinase CK-MB (CK-2) Troponin T NT-Pro-B Natriuret Pep Total Protein Albumin Triglycerides HDL Cholesterol Folate Urine WBC (Auto) Urine Creatinine Urine Total Protein Vancomycin Trough 06/05/19 06/05/19 06/05/19 03:52 06:41 12:29 WBC RBC Hgb Hct MCV MCH MCHC RDW Plt Count Lymph % (Auto) [place] % (Auto) Eos % (Auto) Lymph # [place] # Eos # Seg Neutrophils % Seg Neuts % (Manual) Lymphocytes % (Manual) Monocytes % (Manual) Eosinophils % (Manual) Nucleated RBC % Seg Neutrophils # Seg Neutrophils # Man Lymphocytes # (Manual) Monocytes # (Manual) Eosinophils # (Manual) PT INR APTT Fibrinogen POC ABG pH 7.462 H ABG pH POC ABG pCO2 POC ABG pO2 ABG pO2 ABG HCO3 ABG O2 Saturation ABG Base Excess ABG Hemoglobin Oxyhemoglobin Sodium Potassium Chloride Carbon Dioxide BUN Creatinine Glucose POC Glucose 369 H 265 H Uric Acid Calcium Phosphorus Magnesium Iron TIBC AST ALT Total Creatine Kinase CK-MB (CK-2) Troponin T NT-Pro-B Natriuret Pep Total Protein Albumin Triglycerides HDL Cholesterol Folate Urine WBC (Auto) Urine Creatinine Urine Total Protein Vancomycin Trough 06/05/19 06/05/19 06/05/19 18:20 21:42 23:21 WBC RBC Hgb Hct MCV MCH MCHC RDW Plt Count Lymph % (Auto) [place] % (Auto) Eos % (Auto) Lymph # [place] # Eos # Seg Neutrophils % Seg Neuts % (Manual) Lymphocytes % (Manual) Monocytes % (Manual) Eosinophils % (Manual) Nucleated RBC % Seg Neutrophils # Seg Neutrophils # Man Lymphocytes # (Manual) Monocytes # (Manual) Eosinophils # (Manual) PT INR APTT Fibrinogen POC ABG pH ABG pH POC ABG pCO2 POC ABG pO2 ABG pO2 ABG HCO3 ABG O2 Saturation ABG Base Excess ABG Hemoglobin Oxyhemoglobin Sodium Potassium Chloride Carbon Dioxide BUN Creatinine Glucose POC Glucose 249 H 246 H 274 H Uric Acid Calcium Phosphorus Magnesium Iron TIBC AST ALT Total Creatine Kinase CK-MB (CK-2) Troponin T NT-Pro-B Natriuret Pep Total Protein Albumin Triglycerides HDL Cholesterol Folate Urine WBC (Auto) Urine Creatinine Urine Total Protein Vancomycin Trough 06/06/19 06/06/19 06/06/19 04:00 05:49 11:34 WBC 18.1 H RBC 3.53 L Hgb 9.5 L Hct 30.3 L MCV MCH 27 L MCHC 31 L RDW 19.5 H Plt Count Lymph % (Auto) [place] % (Auto) Eos % (Auto) Lymph # [place] # Eos # Seg Neutrophils % Seg Neuts % (Manual) 87.0 H Lymphocytes % (Manual) 3.0 L Monocytes % (Manual) 8.0 H Eosinophils % (Manual) Nucleated RBC % Seg Neutrophils # Seg Neutrophils # Man 15.7 H Lymphocytes # (Manual) 0.5 L Monocytes # (Manual) 1.4 H Eosinophils # (Manual) PT INR APTT Fibrinogen POC ABG pH ABG pH 7.472 H POC ABG pCO2 POC ABG pO2 ABG pO2 76.4 L ABG HCO3 28.1 H ABG O2 Saturation ABG Base Excess 4.3 H ABG Hemoglobin 12.5 L Oxyhemoglobin 93.8 L Sodium Potassium Chloride Carbon Dioxide BUN Creatinine Glucose POC Glucose 340 H Uric Acid Calcium Phosphorus Magnesium Iron TIBC AST ALT Total Creatine Kinase CK-MB (CK-2) Troponin T NT-Pro-B Natriuret Pep Total Protein Albumin Triglycerides HDL Cholesterol Folate Urine WBC (Auto) Urine Creatinine Urine Total Protein Vancomycin Trough 06/06/19 06/06/19 06/06/19 11:34 12:11 18:10 WBC RBC Hgb Hct MCV MCH MCHC RDW Plt Count Lymph % (Auto) [place] % (Auto) Eos % (Auto) Lymph # [place] # Eos # Seg Neutrophils % Seg Neuts % (Manual) Lymphocytes % (Manual) Monocytes % (Manual) Eosinophils % (Manual) Nucleated RBC % Seg Neutrophils # Seg Neutrophils # Man Lymphocytes # (Manual) Monocytes # (Manual) Eosinophils # (Manual) PT INR APTT Fibrinogen POC ABG pH ABG pH POC ABG pCO2 POC ABG pO2 ABG pO2 ABG HCO3 ABG O2 Saturation ABG Base Excess ABG Hemoglobin Oxyhemoglobin Sodium Potassium Chloride Carbon Dioxide BUN 70 H Creatinine Glucose 310 H POC Glucose 283 H 301 H Uric Acid Calcium 8.3 L Phosphorus 4.60 H Magnesium Iron TIBC AST ALT 75 H Total Creatine Kinase CK-MB (CK-2) Troponin T NT-Pro-B Natriuret Pep Total Protein 5.6 L Albumin 2.9 L Triglycerides HDL Cholesterol Folate Urine WBC (Auto) Urine Creatinine Urine Total Protein Vancomycin Trough 06/06/19 06/06/19 06/07/19 22:21 23:16 04:30 WBC RBC Hgb Hct MCV MCH MCHC RDW Plt Count Lymph % (Auto) [place] % (Auto) Eos % (Auto) Lymph # [place] # Eos # Seg Neutrophils % Seg Neuts % (Manual) Lymphocytes % (Manual) Monocytes % (Manual) Eosinophils % (Manual) Nucleated RBC % Seg Neutrophils # Seg Neutrophils # Man Lymphocytes # (Manual) Monocytes # (Manual) Eosinophils # (Manual) PT INR APTT Fibrinogen POC ABG pH ABG pH 7.480 H POC ABG pCO2 POC ABG pO2 ABG pO2 77.0 L ABG HCO3 27.2 H ABG O2 Saturation ABG Base Excess 3.5 H ABG Hemoglobin 7.1 L Oxyhemoglobin 94.2 L Sodium Potassium Chloride Carbon Dioxide BUN Creatinine Glucose POC Glucose 289 H 343 H Uric Acid Calcium Phosphorus Magnesium Iron TIBC AST ALT Total Creatine Kinase CK-MB (CK-2) Troponin T NT-Pro-B Natriuret Pep Total Protein Albumin Triglycerides HDL Cholesterol Folate Urine WBC (Auto) Urine Creatinine Urine Total Protein Vancomycin Trough 06/07/19 06/07/19 06/07/19 05:15 12:52 18:41 WBC RBC Hgb Hct MCV MCH MCHC RDW Plt Count Lymph % (Auto) [place] % (Auto) Eos % (Auto) Lymph # [place] # Eos # Seg Neutrophils % Seg Neuts % (Manual) Lymphocytes % (Manual) Monocytes % (Manual) Eosinophils % (Manual) Nucleated RBC % Seg Neutrophils # Seg Neutrophils # Man Lymphocytes # (Manual) Monocytes # (Manual) Eosinophils # (Manual) PT INR APTT Fibrinogen POC ABG pH ABG pH POC ABG pCO2 POC ABG pO2 ABG pO2 ABG HCO3 ABG O2 Saturation ABG Base Excess ABG Hemoglobin Oxyhemoglobin Sodium Potassium Chloride Carbon Dioxide BUN Creatinine Glucose POC Glucose 307 H 226 H 187 H Uric Acid Calcium Phosphorus Magnesium Iron TIBC AST ALT Total Creatine Kinase CK-MB (CK-2) Troponin T NT-Pro-B Natriuret Pep Total Protein Albumin Triglycerides HDL Cholesterol Folate Urine WBC (Auto) Urine Creatinine Urine Total Protein Vancomycin Trough 06/07/19 06/07/19 06/08/19 22:54 23:46 04:20 WBC 16.0 H RBC Hgb 10.0 L Hct 32.1 L MCV MCH 27 L MCHC 31 L RDW 19.4 H Plt Count Lymph % (Auto) [place] % (Auto) Eos % (Auto) Lymph # [place] # Eos # Seg Neutrophils % Seg Neuts % (Manual) 87.0 H Lymphocytes % (Manual) 7.0 L Monocytes % (Manual) Eosinophils % (Manual) Nucleated RBC % Seg Neutrophils # Seg Neutrophils # Man 13.9 H Lymphocytes # (Manual) 1.1 L Monocytes # (Manual) 1.0 H Eosinophils # (Manual) PT INR APTT Fibrinogen POC ABG pH ABG pH POC ABG pCO2 POC ABG pO2 ABG pO2 ABG HCO3 ABG O2 Saturation ABG Base Excess ABG Hemoglobin Oxyhemoglobin Sodium Potassium Chloride Carbon Dioxide BUN Creatinine Glucose POC Glucose 199 H 172 H Uric Acid Calcium Phosphorus Magnesium Iron TIBC AST ALT Total Creatine Kinase CK-MB (CK-2) Troponin T NT-Pro-B Natriuret Pep Total Protein Albumin Triglycerides HDL Cholesterol Folate Urine WBC (Auto) Urine Creatinine Urine Total Protein Vancomycin Trough 06/08/19 06/08/19 06/08/19 04:20 05:15 11:31 WBC RBC Hgb Hct MCV MCH MCHC RDW Plt Count Lymph % (Auto) [place] % (Auto) Eos % (Auto) Lymph # [place] # Eos # Seg Neutrophils % Seg Neuts % (Manual) Lymphocytes % (Manual) Monocytes % (Manual) Eosinophils % (Manual) Nucleated RBC % Seg Neutrophils # Seg Neutrophils # Man Lymphocytes # (Manual) Monocytes # (Manual) Eosinophils # (Manual) PT INR APTT Fibrinogen POC ABG pH ABG pH POC ABG pCO2 POC ABG pO2 ABG pO2 ABG HCO3 ABG O2 Saturation ABG Base Excess ABG Hemoglobin Oxyhemoglobin Sodium 146 H D Potassium Chloride Carbon Dioxide BUN 77 H Creatinine Glucose 205 H POC Glucose 209 H 181 H Uric Acid Calcium Phosphorus Magnesium Iron TIBC AST ALT 66 H Total Creatine Kinase CK-MB (CK-2) Troponin T NT-Pro-B Natriuret Pep Total Protein 5.5 L Albumin 2.9 L Triglycerides HDL Cholesterol Folate Urine WBC (Auto) Urine Creatinine Urine Total Protein Vancomycin Trough 06/08/19 06/08/19 06/09/19 17:28 23:24 05:20 WBC RBC Hgb Hct MCV MCH MCHC RDW Plt Count Lymph % (Auto) [place] % (Auto) Eos % (Auto) Lymph # [place] # Eos # Seg Neutrophils % Seg Neuts % (Manual) Lymphocytes % (Manual) Monocytes % (Manual) Eosinophils % (Manual) Nucleated RBC % Seg Neutrophils # Seg Neutrophils # Man Lymphocytes # (Manual) Monocytes # (Manual) Eosinophils # (Manual) PT INR APTT Fibrinogen POC ABG pH ABG pH POC ABG pCO2 POC ABG pO2 ABG pO2 ABG HCO3 ABG O2 Saturation ABG Base Excess ABG Hemoglobin Oxyhemoglobin Sodium Potassium Chloride Carbon Dioxide BUN Creatinine Glucose POC Glucose 215 H 200 H 173 H Uric Acid Calcium Phosphorus Magnesium Iron TIBC AST ALT Total Creatine Kinase CK-MB (CK-2) Troponin T NT-Pro-B Natriuret Pep Total Protein Albumin Triglycerides HDL Cholesterol Folate Urine WBC (Auto) Urine Creatinine Urine Total Protein Vancomycin Trough 06/09/19 06/09/19 06/09/19 12:07 18:32 23:51 WBC RBC Hgb Hct MCV MCH MCHC RDW Plt Count Lymph % (Auto) [place] % (Auto) Eos % (Auto) Lymph # [place] # Eos # Seg Neutrophils % Seg Neuts % (Manual) Lymphocytes % (Manual) Monocytes % (Manual) Eosinophils % (Manual) Nucleated RBC % Seg Neutrophils # Seg Neutrophils # Man Lymphocytes # (Manual) Monocytes # (Manual) Eosinophils # (Manual) PT INR APTT Fibrinogen POC ABG pH ABG pH POC ABG pCO2 POC ABG pO2 ABG pO2 ABG HCO3 ABG O2 Saturation ABG Base Excess ABG Hemoglobin Oxyhemoglobin Sodium Potassium Chloride Carbon Dioxide BUN Creatinine Glucose POC Glucose 117 H 169 H 147 H Uric Acid Calcium Phosphorus Magnesium Iron TIBC AST ALT Total Creatine Kinase CK-MB (CK-2) Troponin T NT-Pro-B Natriuret Pep Total Protein Albumin Triglycerides HDL Cholesterol Folate Urine WBC (Auto) Urine Creatinine Urine Total Protein Vancomycin Trough 06/10/19 06/10/19 06/10/19 05:45 05:45 06:01 WBC 14.6 H RBC Hgb 9.9 L Hct 32.2 L MCV MCH 27 L MCHC 31 L RDW 19.6 H Plt Count Lymph % (Auto) 10.5 L [place] % (Auto) 9.4 H Eos % (Auto) Lymph # [place] # 1.4 H Eos # Seg Neutrophils % 79.9 H Seg Neuts % (Manual) Lymphocytes % (Manual) Monocytes % (Manual) Eosinophils % (Manual) Nucleated RBC % Seg Neutrophils # 11.7 H Seg Neutrophils # Man Lymphocytes # (Manual) Monocytes # (Manual) Eosinophils # (Manual) PT INR APTT Fibrinogen POC ABG pH ABG pH POC ABG pCO2 POC ABG pO2 ABG pO2 ABG HCO3 ABG O2 Saturation ABG Base Excess ABG Hemoglobin Oxyhemoglobin Sodium 150 H Potassium Chloride 108.3 H Carbon Dioxide BUN 49 H Creatinine Glucose 172 H POC Glucose 165 H Uric Acid Calcium Phosphorus Magnesium 1.40 L Iron TIBC AST ALT Total Creatine Kinase CK-MB (CK-2) Troponin T NT-Pro-B Natriuret Pep Total Protein Albumin Triglycerides HDL Cholesterol Folate Urine WBC (Auto) Urine Creatinine Urine Total Protein Vancomycin Trough 06/10/19 06/10/19 06/11/19 12:11 18:30 00:02 WBC RBC Hgb Hct MCV MCH MCHC RDW Plt Count Lymph % (Auto) [place] % (Auto) Eos % (Auto) Lymph # [place] # Eos # Seg Neutrophils % Seg Neuts % (Manual) Lymphocytes % (Manual) Monocytes % (Manual) Eosinophils % (Manual) Nucleated RBC % Seg Neutrophils # Seg Neutrophils # Man Lymphocytes # (Manual) Monocytes # (Manual) Eosinophils # (Manual) PT INR APTT Fibrinogen POC ABG pH ABG pH POC ABG pCO2 POC ABG pO2 ABG pO2 ABG HCO3 ABG O2 Saturation ABG Base Excess ABG Hemoglobin Oxyhemoglobin Sodium Potassium Chloride Carbon Dioxide BUN Creatinine Glucose POC Glucose 150 H 154 H 130 H Uric Acid Calcium Phosphorus Magnesium Iron TIBC AST ALT Total Creatine Kinase CK-MB (CK-2) Troponin T NT-Pro-B Natriuret Pep Total Protein Albumin Triglycerides HDL Cholesterol Folate Urine WBC (Auto) Urine Creatinine Urine Total Protein Vancomycin Trough 06/11/19 06/11/19 06/11/19 05:33 08:34 12:33 WBC RBC Hgb Hct MCV MCH MCHC RDW Plt Count Lymph % (Auto) [place] % (Auto) Eos % (Auto) Lymph # [place] # Eos # Seg Neutrophils % Seg Neuts % (Manual) Lymphocytes % (Manual) Monocytes % (Manual) Eosinophils % (Manual) Nucleated RBC % Seg Neutrophils # Seg Neutrophils # Man Lymphocytes # (Manual) Monocytes # (Manual) Eosinophils # (Manual) PT INR APTT Fibrinogen POC ABG pH ABG pH POC ABG pCO2 POC ABG pO2 ABG pO2 ABG HCO3 ABG O2 Saturation ABG Base Excess ABG Hemoglobin Oxyhemoglobin Sodium 154 H Potassium Chloride 111.6 H Carbon Dioxide BUN 41 H Creatinine Glucose 147 H POC Glucose 183 H 185 H Uric Acid Calcium Phosphorus Magnesium Iron TIBC AST ALT Total Creatine Kinase CK-MB (CK-2) Troponin T NT-Pro-B Natriuret Pep Total Protein Albumin Triglycerides HDL Cholesterol Folate Urine WBC (Auto) Urine Creatinine Urine Total Protein Vancomycin Trough 06/11/19 06/11/19 06/12/19 18:22 23:46 03:21 WBC 11.9 H RBC 3.61 L Hgb 9.9 L Hct 31.7 L MCV MCH 27 L MCHC 31 L RDW 19.3 H Plt Count Lymph % (Auto) 10.6 L [place] % (Auto) 8.6 H Eos % (Auto) Lymph # [place] # 1.0 H Eos # Seg Neutrophils % 80.6 H Seg Neuts % (Manual) Lymphocytes % (Manual) Monocytes % (Manual) Eosinophils % (Manual) Nucleated RBC % Seg Neutrophils # 9.6 H Seg Neutrophils # Man Lymphocytes # (Manual) Monocytes # (Manual) Eosinophils # (Manual) PT INR APTT Fibrinogen POC ABG pH ABG pH POC ABG pCO2 POC ABG pO2 ABG pO2 ABG HCO3 ABG O2 Saturation ABG Base Excess ABG Hemoglobin Oxyhemoglobin Sodium Potassium Chloride Carbon Dioxide BUN Creatinine Glucose POC Glucose 158 H 182 H Uric Acid Calcium Phosphorus Magnesium Iron TIBC AST ALT Total Creatine Kinase CK-MB (CK-2) Troponin T NT-Pro-B Natriuret Pep Total Protein Albumin Triglycerides HDL Cholesterol Folate Urine WBC (Auto) Urine Creatinine Urine Total Protein Vancomycin Trough 06/12/19 06/12/19 06/12/19 03:21 06:04 11:28 WBC RBC Hgb Hct MCV MCH MCHC RDW Plt Count Lymph % (Auto) [place] % (Auto) Eos % (Auto) Lymph # [place] # Eos # Seg Neutrophils % Seg Neuts % (Manual) Lymphocytes % (Manual) Monocytes % (Manual) Eosinophils % (Manual) Nucleated RBC % Seg Neutrophils # Seg Neutrophils # Man Lymphocytes # (Manual) Monocytes # (Manual) Eosinophils # (Manual) PT INR APTT Fibrinogen POC ABG pH ABG pH POC ABG pCO2 POC ABG pO2 ABG pO2 ABG HCO3 ABG O2 Saturation ABG Base Excess ABG Hemoglobin Oxyhemoglobin Sodium 148 H Potassium Chloride 107.3 H Carbon Dioxide BUN 34 H Creatinine 0.7 L Glucose 194 H POC Glucose 133 H 167 H Uric Acid Calcium Phosphorus Magnesium 1.40 L Iron TIBC AST ALT Total Creatine Kinase CK-MB (CK-2) Troponin T NT-Pro-B Natriuret Pep Total Protein Albumin Triglycerides HDL Cholesterol Folate Urine WBC (Auto) Urine Creatinine Urine Total Protein Vancomycin Trough 06/12/19 06/12/19 06/13/19 18:47 21:27 00:04 WBC RBC Hgb Hct MCV MCH MCHC RDW Plt Count Lymph % (Auto) [place] % (Auto) Eos % (Auto) Lymph # [place] # Eos # Seg Neutrophils % Seg Neuts % (Manual) Lymphocytes % (Manual) Monocytes % (Manual) Eosinophils % (Manual) Nucleated RBC % Seg Neutrophils # Seg Neutrophils # Man Lymphocytes # (Manual) Monocytes # (Manual) Eosinophils # (Manual) PT INR APTT Fibrinogen POC ABG pH ABG pH POC ABG pCO2 POC ABG pO2 ABG pO2 ABG HCO3 ABG O2 Saturation ABG Base Excess ABG Hemoglobin Oxyhemoglobin Sodium Potassium Chloride Carbon Dioxide BUN Creatinine Glucose POC Glucose 210 H 263 H 248 H Uric Acid Calcium Phosphorus Magnesium Iron TIBC AST ALT Total Creatine Kinase CK-MB (CK-2) Troponin T NT-Pro-B Natriuret Pep Total Protein Albumin Triglycerides HDL Cholesterol Folate Urine WBC (Auto) Urine Creatinine Urine Total Protein Vancomycin Trough 06/13/19 06/13/19 06/13/19 04:32 05:46 13:30 WBC RBC Hgb Hct MCV MCH MCHC RDW Plt Count Lymph % (Auto) [place] % (Auto) Eos % (Auto) Lymph # [place] # Eos # Seg Neutrophils % Seg Neuts % (Manual) Lymphocytes % (Manual) Monocytes % (Manual) Eosinophils % (Manual) Nucleated RBC % Seg Neutrophils # Seg Neutrophils # Man Lymphocytes # (Manual) Monocytes # (Manual) Eosinophils # (Manual) PT INR APTT Fibrinogen POC ABG pH ABG pH POC ABG pCO2 POC ABG pO2 ABG pO2 ABG HCO3 ABG O2 Saturation ABG Base Excess ABG Hemoglobin Oxyhemoglobin Sodium Potassium Chloride Carbon Dioxide BUN 27 H Creatinine 0.7 L Glucose 253 H POC Glucose 201 H 241 H Uric Acid Calcium Phosphorus Magnesium Iron TIBC AST ALT Total Creatine Kinase CK-MB (CK-2) Troponin T NT-Pro-B Natriuret Pep Total Protein Albumin Triglycerides HDL Cholesterol Folate Urine WBC (Auto) Urine Creatinine Urine Total Protein Vancomycin Trough 06/13/19 06/13/19 06/14/19 17:33 23:49 04:50 WBC RBC Hgb Hct MCV MCH MCHC RDW Plt Count Lymph % (Auto) [place] % (Auto) Eos % (Auto) Lymph # [place] # Eos # Seg Neutrophils % Seg Neuts % (Manual) Lymphocytes % (Manual) Monocytes % (Manual) Eosinophils % (Manual) Nucleated RBC % Seg Neutrophils # Seg Neutrophils # Man Lymphocytes # (Manual) Monocytes # (Manual) Eosinophils # (Manual) PT INR APTT Fibrinogen POC ABG pH ABG pH POC ABG pCO2 POC ABG pO2 ABG pO2 ABG HCO3 ABG O2 Saturation ABG Base Excess ABG Hemoglobin Oxyhemoglobin Sodium Potassium Chloride Carbon Dioxide BUN 37 H Creatinine Glucose 256 H POC Glucose 264 H 236 H Uric Acid Calcium Phosphorus Magnesium Iron TIBC AST ALT Total Creatine Kinase CK-MB (CK-2) Troponin T NT-Pro-B Natriuret Pep Total Protein Albumin Triglycerides HDL Cholesterol Folate Urine WBC (Auto) Urine Creatinine Urine Total Protein Vancomycin Trough 06/14/19 06/14/19 06/14/19 05:26 12:31 18:32 WBC RBC Hgb Hct MCV MCH MCHC RDW Plt Count Lymph % (Auto) [place] % (Auto) Eos % (Auto) Lymph # [place] # Eos # Seg Neutrophils % Seg Neuts % (Manual) Lymphocytes % (Manual) Monocytes % (Manual) Eosinophils % (Manual) Nucleated RBC % Seg Neutrophils # Seg Neutrophils # Man Lymphocytes # (Manual) Monocytes # (Manual) Eosinophils # (Manual) PT INR APTT Fibrinogen POC ABG pH ABG pH POC ABG pCO2 POC ABG pO2 ABG pO2 ABG HCO3 ABG O2 Saturation ABG Base Excess ABG Hemoglobin Oxyhemoglobin Sodium Potassium Chloride Carbon Dioxide BUN Creatinine Glucose POC Glucose 239 H 116 H 247 H Uric Acid Calcium Phosphorus Magnesium Iron TIBC AST ALT Total Creatine Kinase CK-MB (CK-2) Troponin T NT-Pro-B Natriuret Pep Total Protein Albumin Triglycerides HDL Cholesterol Folate Urine WBC (Auto) Urine Creatinine Urine Total Protein Vancomycin Trough 06/14/19 06/15/19 06/15/19 23:57 04:05 05:55 WBC RBC Hgb Hct MCV MCH MCHC RDW Plt Count Lymph % (Auto) [place] % (Auto) Eos % (Auto) Lymph # [place] # Eos # Seg Neutrophils % Seg Neuts % (Manual) Lymphocytes % (Manual) Monocytes % (Manual) Eosinophils % (Manual) Nucleated RBC % Seg Neutrophils # Seg Neutrophils # Man Lymphocytes # (Manual) Monocytes # (Manual) Eosinophils # (Manual) PT INR APTT Fibrinogen POC ABG pH ABG pH POC ABG pCO2 POC ABG pO2 ABG pO2 ABG HCO3 ABG O2 Saturation ABG Base Excess ABG Hemoglobin Oxyhemoglobin Sodium Potassium Chloride Carbon Dioxide BUN 46 H Creatinine 0.7 L Glucose 265 H POC Glucose 206 H 265 H Uric Acid Calcium Phosphorus Magnesium Iron TIBC AST ALT Total Creatine Kinase CK-MB (CK-2) Troponin T NT-Pro-B Natriuret Pep Total Protein Albumin Triglycerides HDL Cholesterol Folate Urine WBC (Auto) Urine Creatinine Urine Total Protein Vancomycin Trough 06/15/19 06/15/19 06/15/19 12:08 18:45 23:41 WBC RBC Hgb Hct MCV MCH MCHC RDW Plt Count Lymph % (Auto) [place] % (Auto) Eos % (Auto) Lymph # [place] # Eos # Seg Neutrophils % Seg Neuts % (Manual) Lymphocytes % (Manual) Monocytes % (Manual) Eosinophils % (Manual) Nucleated RBC % Seg Neutrophils # Seg Neutrophils # Man Lymphocytes # (Manual) Monocytes # (Manual) Eosinophils # (Manual) PT INR APTT Fibrinogen POC ABG pH ABG pH POC ABG pCO2 POC ABG pO2 ABG pO2 ABG HCO3 ABG O2 Saturation ABG Base Excess ABG Hemoglobin Oxyhemoglobin Sodium Potassium Chloride Carbon Dioxide BUN Creatinine Glucose POC Glucose 224 H 177 H 193 H Uric Acid Calcium Phosphorus Magnesium Iron TIBC AST ALT Total Creatine Kinase CK-MB (CK-2) Troponin T NT-Pro-B Natriuret Pep Total Protein Albumin Triglycerides HDL Cholesterol Folate Urine WBC (Auto) Urine Creatinine Urine Total Protein Vancomycin Trough 06/16/19 06/16/19 06/16/19 05:00 05:00 05:40 WBC 11.9 H RBC 3.24 L Hgb 9.0 L Hct 29.0 L MCV MCH MCHC 31 L RDW 18.6 H Plt Count 111 L Lymph % (Auto) [place] % (Auto) Eos % (Auto) Lymph # [place] # Eos # Seg Neutrophils % Seg Neuts % (Manual) 92.0 H Lymphocytes % (Manual) 2.0 L Monocytes % (Manual) Eosinophils % (Manual) Nucleated RBC % Seg Neutrophils # Seg Neutrophils # Man 10.9 H Lymphocytes # (Manual) 0.2 L Monocytes # (Manual) Eosinophils # (Manual) PT INR APTT Fibrinogen POC ABG pH ABG pH POC ABG pCO2 POC ABG pO2 ABG pO2 ABG HCO3 ABG O2 Saturation ABG Base Excess ABG Hemoglobin Oxyhemoglobin Sodium Potassium Chloride Carbon Dioxide 33 H BUN 49 H Creatinine 0.7 L Glucose 264 H POC Glucose 247 H Uric Acid Calcium Phosphorus Magnesium Iron TIBC AST ALT Total Creatine Kinase CK-MB (CK-2) Troponin T NT-Pro-B Natriuret Pep Total Protein Albumin Triglycerides HDL Cholesterol Folate Urine WBC (Auto) Urine Creatinine Urine Total Protein Vancomycin Trough 06/16/19 06/16/19 06/16/19 12:03 17:11 18:11 WBC RBC Hgb Hct MCV MCH MCHC RDW Plt Count Lymph % (Auto) [place] % (Auto) Eos % (Auto) Lymph # [place] # Eos # Seg Neutrophils % Seg Neuts % (Manual) Lymphocytes % (Manual) Monocytes % (Manual) Eosinophils % (Manual) Nucleated RBC % Seg Neutrophils # Seg Neutrophils # Man Lymphocytes # (Manual) Monocytes # (Manual) Eosinophils # (Manual) PT INR APTT Fibrinogen POC ABG pH ABG pH 7.289 L POC ABG pCO2 POC ABG pO2 ABG pO2 399.3 H ABG HCO3 30.1 H ABG O2 Saturation 99.6 H ABG Base Excess ABG Hemoglobin 8.6 L Oxyhemoglobin Sodium Potassium Chloride Carbon Dioxide BUN Creatinine Glucose POC Glucose 252 H 254 H Uric Acid Calcium Phosphorus Magnesium Iron TIBC AST ALT Total Creatine Kinase CK-MB (CK-2) Troponin T NT-Pro-B Natriuret Pep Total Protein Albumin Triglycerides HDL Cholesterol Folate Urine WBC (Auto) Urine Creatinine Urine Total Protein Vancomycin Trough 06/16/19 06/17/19 06/17/19 23:16 05:30 05:53 WBC RBC Hgb Hct MCV MCH MCHC RDW Plt Count Lymph % (Auto) [place] % (Auto) Eos % (Auto) Lymph # [place] # Eos # Seg Neutrophils % Seg Neuts % (Manual) Lymphocytes % (Manual) Monocytes % (Manual) Eosinophils % (Manual) Nucleated RBC % Seg Neutrophils # Seg Neutrophils # Man Lymphocytes # (Manual) Monocytes # (Manual) Eosinophils # (Manual) PT INR APTT Fibrinogen POC ABG pH ABG pH POC ABG pCO2 POC ABG pO2 ABG pO2 ABG HCO3 ABG O2 Saturation ABG Base Excess ABG Hemoglobin Oxyhemoglobin Sodium 147 H Potassium Chloride Carbon Dioxide 32 H BUN 60 H Creatinine Glucose 205 H POC Glucose 238 H 211 H Uric Acid Calcium Phosphorus Magnesium Iron TIBC AST ALT Total Creatine Kinase CK-MB (CK-2) Troponin T NT-Pro-B Natriuret Pep Total Protein Albumin Triglycerides HDL Cholesterol Folate Urine WBC (Auto) Urine Creatinine Urine Total Protein Vancomycin Trough 06/17/19 06/17/19 06/17/19 09:50 12:27 12:45 WBC RBC 2.79 L Hgb 8.2 L Hct 24.6 L MCV MCH MCHC RDW 18.5 H Plt Count 95 L Lymph % (Auto) [place] % (Auto) Eos % (Auto) Lymph # [place] # Eos # Seg Neutrophils % Seg Neuts % (Manual) Lymphocytes % (Manual) Monocytes % (Manual) Eosinophils % (Manual) Nucleated RBC % Seg Neutrophils # Seg Neutrophils # Man Lymphocytes # (Manual) Monocytes # (Manual) Eosinophils # (Manual) PT INR APTT Fibrinogen 194 L POC ABG pH ABG pH POC ABG pCO2 POC ABG pO2 ABG pO2 ABG HCO3 ABG O2 Saturation ABG Base Excess ABG Hemoglobin Oxyhemoglobin Sodium Potassium Chloride Carbon Dioxide BUN Creatinine Glucose POC Glucose 224 H Uric Acid Calcium Phosphorus Magnesium Iron TIBC AST ALT Total Creatine Kinase CK-MB (CK-2) Troponin T NT-Pro-B Natriuret Pep Total Protein Albumin Triglycerides HDL Cholesterol Folate Urine WBC (Auto) Urine Creatinine Urine Total Protein Vancomycin Trough 06/17/19 06/17/19 06/17/19 18:41 22:00 23:23 WBC RBC Hgb Hct MCV MCH MCHC RDW Plt Count Lymph % (Auto) [place] % (Auto) Eos % (Auto) Lymph # [place] # Eos # Seg Neutrophils % Seg Neuts % (Manual) Lymphocytes % (Manual) Monocytes % (Manual) Eosinophils % (Manual) Nucleated RBC % Seg Neutrophils # Seg Neutrophils # Man Lymphocytes # (Manual) Monocytes # (Manual) Eosinophils # (Manual) PT INR APTT Fibrinogen POC ABG pH ABG pH POC ABG pCO2 POC ABG pO2 ABG pO2 ABG HCO3 ABG O2 Saturation ABG Base Excess ABG Hemoglobin Oxyhemoglobin Sodium Potassium Chloride Carbon Dioxide BUN Creatinine Glucose POC Glucose 198 H 166 H 171 H Uric Acid Calcium Phosphorus Magnesium Iron TIBC AST ALT Total Creatine Kinase CK-MB (CK-2) Troponin T NT-Pro-B Natriuret Pep Total Protein Albumin Triglycerides HDL Cholesterol Folate Urine WBC (Auto) Urine Creatinine Urine Total Protein Vancomycin Trough 06/17/19 06/18/19 06/18/19 Unknown 03:50 04:25 WBC RBC Hgb Hct MCV MCH MCHC RDW Plt Count Lymph % (Auto) [place] % (Auto) Eos % (Auto) Lymph # [place] # Eos # Seg Neutrophils % Seg Neuts % (Manual) Lymphocytes % (Manual) Monocytes % (Manual) Eosinophils % (Manual) Nucleated RBC % Seg Neutrophils # Seg Neutrophils # Man Lymphocytes # (Manual) Monocytes # (Manual) Eosinophils # (Manual) PT INR APTT Fibrinogen POC ABG pH ABG pH 7.564 H 7.499 H POC ABG pCO2 POC ABG pO2 ABG pO2 238.6 H 130.8 H ABG HCO3 33.6 H 32.5 H ABG O2 Saturation 99.4 H ABG Base Excess 10.6 H 8.5 H ABG Hemoglobin 7.9 L 8.8 L Oxyhemoglobin Sodium 151 H Potassium 3.4 L Chloride Carbon Dioxide BUN 66 H Creatinine Glucose 189 H POC Glucose Uric Acid Calcium Phosphorus Magnesium Iron TIBC AST ALT Total Creatine Kinase CK-MB (CK-2) Troponin T NT-Pro-B Natriuret Pep Total Protein Albumin Triglycerides HDL Cholesterol Folate Urine WBC (Auto) Urine Creatinine Urine Total Protein Vancomycin Trough 06/18/19 06/18/19 06/18/19 05:25 05:27 11:50 WBC RBC 2.61 L Hgb 7.4 L Hct 22.9 L MCV MCH MCHC RDW 19.9 H Plt Count 81 L Lymph % (Auto) 12.9 L [place] % (Auto) 7.7 H Eos % (Auto) Lymph # 1.1 L [place] # Eos # Seg Neutrophils % 77.4 H Seg Neuts % (Manual) Lymphocytes % (Manual) Monocytes % (Manual) Eosinophils % (Manual) Nucleated RBC % Seg Neutrophils # Seg Neutrophils # Man Lymphocytes # (Manual) Monocytes # (Manual) Eosinophils # (Manual) PT INR APTT Fibrinogen POC ABG pH ABG pH POC ABG pCO2 POC ABG pO2 ABG pO2 ABG HCO3 ABG O2 Saturation ABG Base Excess ABG Hemoglobin Oxyhemoglobin Sodium Potassium Chloride Carbon Dioxide BUN Creatinine Glucose POC Glucose 186 H 263 H Uric Acid Calcium Phosphorus Magnesium Iron TIBC AST ALT Total Creatine Kinase CK-MB (CK-2) Troponin T NT-Pro-B Natriuret Pep Total Protein Albumin Triglycerides HDL Cholesterol Folate Urine WBC (Auto) Urine Creatinine Urine Total Protein Vancomycin Trough 06/18/19 06/18/19 06/18/19 18:35 21:31 23:21 WBC RBC Hgb Hct MCV MCH MCHC RDW Plt Count Lymph % (Auto) [place] % (Auto) Eos % (Auto) Lymph # [place] # Eos # Seg Neutrophils % Seg Neuts % (Manual) Lymphocytes % (Manual) Monocytes % (Manual) Eosinophils % (Manual) Nucleated RBC % Seg Neutrophils # Seg Neutrophils # Man Lymphocytes # (Manual) Monocytes # (Manual) Eosinophils # (Manual) PT INR APTT Fibrinogen POC ABG pH ABG pH POC ABG pCO2 POC ABG pO2 ABG pO2 ABG HCO3 ABG O2 Saturation ABG Base Excess ABG Hemoglobin Oxyhemoglobin Sodium Potassium Chloride Carbon Dioxide BUN Creatinine Glucose POC Glucose 154 H 186 H 202 H Uric Acid Calcium Phosphorus Magnesium Iron TIBC AST ALT Total Creatine Kinase CK-MB (CK-2) Troponin T NT-Pro-B Natriuret Pep Total Protein Albumin Triglycerides HDL Cholesterol Folate Urine WBC (Auto) Urine Creatinine Urine Total Protein Vancomycin Trough 06/19/19 06/19/19 06/19/19 03:18 04:30 04:30 WBC RBC 2.65 L Hgb 7.5 L Hct 23.1 L MCV MCH MCHC RDW 19.4 H Plt Count 74 L Lymph % (Auto) 8.8 L [place] % (Auto) 9.4 H Eos % (Auto) 4.7 H Lymph # 0.6 L [place] # Eos # Seg Neutrophils % 76.6 H Seg Neuts % (Manual) Lymphocytes % (Manual) Monocytes % (Manual) Eosinophils % (Manual) Nucleated RBC % Seg Neutrophils # Seg Neutrophils # Man Lymphocytes # (Manual) Monocytes # (Manual) Eosinophils # (Manual) PT INR APTT Fibrinogen POC ABG pH ABG pH 7.452 H POC ABG pCO2 POC ABG pO2 ABG pO2 105.5 H ABG HCO3 32.3 H ABG O2 Saturation ABG Base Excess 7.6 H ABG Hemoglobin 6.9 L Oxyhemoglobin Sodium 150 H Potassium 3.3 L Chloride Carbon Dioxide 31 H BUN 56 H Creatinine Glucose 197 H POC Glucose Uric Acid Calcium Phosphorus Magnesium Iron TIBC AST ALT Total Creatine Kinase CK-MB (CK-2) Troponin T NT-Pro-B Natriuret Pep Total Protein Albumin Triglycerides 210 H HDL Cholesterol Folate Urine WBC (Auto) Urine Creatinine Urine Total Protein Vancomycin Trough 06/19/19 06/19/19 06/19/19 05:24 12:18 18:55 WBC RBC Hgb Hct MCV MCH MCHC RDW Plt Count Lymph % (Auto) [place] % (Auto) Eos % (Auto) Lymph # [place] # Eos # Seg Neutrophils % Seg Neuts % (Manual) Lymphocytes % (Manual) Monocytes % (Manual) Eosinophils % (Manual) Nucleated RBC % Seg Neutrophils # Seg Neutrophils # Man Lymphocytes # (Manual) Monocytes # (Manual) Eosinophils # (Manual) PT INR APTT Fibrinogen POC ABG pH ABG pH POC ABG pCO2 POC ABG pO2 ABG pO2 ABG HCO3 ABG O2 Saturation ABG Base Excess ABG Hemoglobin Oxyhemoglobin Sodium Potassium Chloride Carbon Dioxide BUN Creatinine Glucose POC Glucose 176 H 260 H 192 H Uric Acid Calcium Phosphorus Magnesium Iron TIBC AST ALT Total Creatine Kinase CK-MB (CK-2) Troponin T NT-Pro-B Natriuret Pep Total Protein Albumin Triglycerides HDL Cholesterol Folate Urine WBC (Auto) Urine Creatinine Urine Total Protein Vancomycin Trough 06/19/19 06/19/19 06/20/19 22:57 23:46 04:40 WBC RBC 2.79 L Hgb 7.9 L Hct 24.3 L MCV MCH MCHC RDW 19.6 H Plt Count 92 L Lymph % (Auto) 9.2 L [place] % (Auto) 12.0 H Eos % (Auto) 5.2 H Lymph # 0.9 L [place] # 1.2 H Eos # 0.5 H Seg Neutrophils % 73.3 H Seg Neuts % (Manual) Lymphocytes % (Manual) Monocytes % (Manual) Eosinophils % (Manual) Nucleated RBC % Seg Neutrophils # Seg Neutrophils # Man Lymphocytes # (Manual) Monocytes # (Manual) Eosinophils # (Manual) PT INR APTT Fibrinogen POC ABG pH ABG pH POC ABG pCO2 POC ABG pO2 ABG pO2 ABG HCO3 ABG O2 Saturation ABG Base Excess ABG Hemoglobin Oxyhemoglobin Sodium Potassium Chloride Carbon Dioxide BUN Creatinine Glucose POC Glucose 145 H 216 H Uric Acid Calcium Phosphorus Magnesium Iron TIBC AST ALT Total Creatine Kinase CK-MB (CK-2) Troponin T NT-Pro-B Natriuret Pep Total Protein Albumin Triglycerides HDL Cholesterol Folate Urine WBC (Auto) Urine Creatinine Urine Total Protein Vancomycin Trough 06/20/19 06/20/19 06/20/19 04:40 05:40 05:54 WBC RBC Hgb Hct MCV MCH MCHC RDW Plt Count Lymph % (Auto) [place] % (Auto) Eos % (Auto) Lymph # [place] # Eos # Seg Neutrophils % Seg Neuts % (Manual) Lymphocytes % (Manual) Monocytes % (Manual) Eosinophils % (Manual) Nucleated RBC % Seg Neutrophils # Seg Neutrophils # Man Lymphocytes # (Manual) Monocytes # (Manual) Eosinophils # (Manual) PT INR APTT Fibrinogen POC ABG pH ABG pH 7.455 H POC ABG pCO2 POC ABG pO2 ABG pO2 60.9 L ABG HCO3 30.3 H ABG O2 Saturation 92.3 L ABG Base Excess 5.8 H ABG Hemoglobin 8.2 L Oxyhemoglobin 90.1 L Sodium Potassium 3.5 L Chloride Carbon Dioxide BUN 59 H Creatinine Glucose 200 H POC Glucose 190 H Uric Acid Calcium Phosphorus Magnesium 1.60 L Iron TIBC AST ALT Total Creatine Kinase CK-MB (CK-2) Troponin T NT-Pro-B Natriuret Pep Total Protein Albumin Triglycerides HDL Cholesterol Folate Urine WBC (Auto) Urine Creatinine Urine Total Protein Vancomycin Trough 06/20/19 06/20/19 06/20/19 09:12 09:12 12:24 WBC RBC Hgb Hct MCV MCH MCHC RDW Plt Count Lymph % (Auto) [place] % (Auto) Eos % (Auto) Lymph # [place] # Eos # Seg Neutrophils % Seg Neuts % (Manual) Lymphocytes % (Manual) Monocytes % (Manual) Eosinophils % (Manual) Nucleated RBC % Seg Neutrophils # Seg Neutrophils # Man Lymphocytes # (Manual) Monocytes # (Manual) Eosinophils # (Manual) PT INR APTT Fibrinogen POC ABG pH ABG pH POC ABG pCO2 POC ABG pO2 ABG pO2 ABG HCO3 ABG O2 Saturation ABG Base Excess ABG Hemoglobin Oxyhemoglobin Sodium Potassium Chloride Carbon Dioxide BUN Creatinine Glucose POC Glucose 225 H Uric Acid Calcium Phosphorus Magnesium Iron 45 L TIBC 110 L AST ALT Total Creatine Kinase CK-MB (CK-2) Troponin T NT-Pro-B Natriuret Pep Total Protein Albumin Triglycerides HDL Cholesterol Folate 7.01 L Urine WBC (Auto) Urine Creatinine Urine Total Protein Vancomycin Trough 06/20/19 06/20/19 06/20/19 17:42 21:55 23:24 WBC RBC Hgb Hct MCV MCH MCHC RDW Plt Count Lymph % (Auto) [place] % (Auto) Eos % (Auto) Lymph # [place] # Eos # Seg Neutrophils % Seg Neuts % (Manual) Lymphocytes % (Manual) Monocytes % (Manual) Eosinophils % (Manual) Nucleated RBC % Seg Neutrophils # Seg Neutrophils # Man Lymphocytes # (Manual) Monocytes # (Manual) Eosinophils # (Manual) PT INR APTT Fibrinogen POC ABG pH ABG pH POC ABG pCO2 POC ABG pO2 ABG pO2 ABG HCO3 ABG O2 Saturation ABG Base Excess ABG Hemoglobin Oxyhemoglobin Sodium Potassium Chloride Carbon Dioxide BUN Creatinine Glucose POC Glucose 255 H 218 H 215 H Uric Acid Calcium Phosphorus Magnesium Iron TIBC AST ALT Total Creatine Kinase CK-MB (CK-2) Troponin T NT-Pro-B Natriuret Pep Total Protein Albumin Triglycerides HDL Cholesterol Folate Urine WBC (Auto) Urine Creatinine Urine Total Protein Vancomycin Trough 0106/21/19 06/21/19 03:32 03:40 05:20 WBC 12.8 H RBC 3.03 L Hgb 8.5 L Hct 26.2 L MCV MCH MCHC RDW 19.4 H Plt Count 131 L Lymph % (Auto) [place] % (Auto) Eos % (Auto) Lymph # [place] # Eos # Seg Neutrophils % Seg Neuts % (Manual) 78.0 H Lymphocytes % (Manual) 5.0 L Monocytes % (Manual) 11.0 H Eosinophils % (Manual) Nucleated RBC % Seg Neutrophils # Seg Neutrophils # Man 10.0 H Lymphocytes # (Manual) 0.6 L Monocytes # (Manual) 1.4 H Eosinophils # (Manual) 0.5 H PT INR APTT Fibrinogen POC ABG pH ABG pH 7.476 H POC ABG pCO2 POC ABG pO2 ABG pO2 162.0 H ABG HCO3 26.8 H ABG O2 Saturation 99.1 H ABG Base Excess 3.1 H ABG Hemoglobin 8.6 L Oxyhemoglobin Sodium Potassium Chloride Carbon Dioxide BUN Creatinine Glucose POC Glucose 202 H Uric Acid Calcium Phosphorus Magnesium Iron TIBC AST ALT Total Creatine Kinase CK-MB (CK-2) Troponin T NT-Pro-B Natriuret Pep Total Protein Albumin Triglycerides HDL Cholesterol Folate Urine WBC (Auto) Urine Creatinine Urine Total Protein Vancomycin Trough 06/21/19 06/21/19 06/21/19 05:20 12:30 18:18 WBC RBC Hgb Hct MCV MCH MCHC RDW Plt Count Lymph % (Auto) [place] % (Auto) Eos % (Auto) Lymph # [place] # Eos # Seg Neutrophils % Seg Neuts % (Manual) Lymphocytes % (Manual) Monocytes % (Manual) Eosinophils % (Manual) Nucleated RBC % Seg Neutrophils # Seg Neutrophils # Man Lymphocytes # (Manual) Monocytes # (Manual) Eosinophils # (Manual) PT INR APTT Fibrinogen POC ABG pH ABG pH POC ABG pCO2 POC ABG pO2 ABG pO2 ABG HCO3 ABG O2 Saturation ABG Base Excess ABG Hemoglobin Oxyhemoglobin Sodium Potassium Chloride 97.7 L Carbon Dioxide BUN 69 H Creatinine Glucose 239 H POC Glucose 176 H 187 H Uric Acid Calcium Phosphorus Magnesium 2.40 H Iron TIBC AST ALT Total Creatine Kinase CK-MB (CK-2) Troponin T NT-Pro-B Natriuret Pep Total Protein Albumin Triglycerides HDL Cholesterol Folate Urine WBC (Auto) Urine Creatinine Urine Total Protein Vancomycin Trough 06/22/19 06/22/19 06/22/19 04:11 05:30 05:30 WBC 12.6 H RBC 3.10 L Hgb 8.7 L Hct 27.0 L MCV MCH MCHC RDW 19.8 H Plt Count Lymph % (Auto) [place] % (Auto) Eos % (Auto) Lymph # [place] # Eos # Seg Neutrophils % Seg Neuts % (Manual) Lymphocytes % (Manual) Monocytes % (Manual) 10.0 H Eosinophils % (Manual) Nucleated RBC % Seg Neutrophils # Seg Neutrophils # Man 8.7 H Lymphocytes # (Manual) Monocytes # (Manual) 1.3 H Eosinophils # (Manual) PT INR APTT Fibrinogen POC ABG pH ABG pH POC ABG pCO2 POC ABG pO2 ABG pO2 ABG HCO3 27.7 H ABG O2 Saturation ABG Base Excess 3.3 H ABG Hemoglobin 8.5 L Oxyhemoglobin 94.9 L Sodium Potassium Chloride Carbon Dioxide BUN 66 H Creatinine Glucose 103 H POC Glucose Uric Acid Calcium Phosphorus Magnesium Iron TIBC AST ALT Total Creatine Kinase CK-MB (CK-2) Troponin T NT-Pro-B Natriuret Pep Total Protein Albumin Triglycerides HDL Cholesterol Folate Urine WBC (Auto) Urine Creatinine Urine Total Protein Vancomycin Trough 06/22/19 06/22/19 06/23/19 17:43 23:25 02:00 WBC RBC Hgb Hct MCV MCH MCHC RDW Plt Count Lymph % (Auto) [place] % (Auto) Eos % (Auto) Lymph # [place] # Eos # Seg Neutrophils % Seg Neuts % (Manual) Lymphocytes % (Manual) Monocytes % (Manual) Eosinophils % (Manual) Nucleated RBC % Seg Neutrophils # Seg Neutrophils # Man Lymphocytes # (Manual) Monocytes # (Manual) Eosinophils # (Manual) PT INR APTT Fibrinogen POC ABG pH ABG pH 7.469 H POC ABG pCO2 POC ABG pO2 ABG pO2 58.7 L ABG HCO3 28.0 H ABG O2 Saturation 94.6 L ABG Base Excess 4.0 H ABG Hemoglobin 7.1 L Oxyhemoglobin 92.2 L Sodium Potassium Chloride Carbon Dioxide BUN Creatinine Glucose POC Glucose 143 H 106 H Uric Acid Calcium Phosphorus Magnesium Iron TIBC AST ALT Total Creatine Kinase CK-MB (CK-2) Troponin T NT-Pro-B Natriuret Pep Total Protein Albumin Triglycerides HDL Cholesterol Folate Urine WBC (Auto) Urine Creatinine Urine Total Protein Vancomycin Trough 06/23/19 06/23/19 06/23/19 05:24 05:24 11:43 WBC 12.6 H RBC 2.96 L Hgb 8.3 L Hct 25.5 L MCV MCH MCHC RDW 20.2 H Plt Count Lymph % (Auto) [place] % (Auto) Eos % (Auto) Lymph # [place] # Eos # Seg Neutrophils % Seg Neuts % (Manual) Lymphocytes % (Manual) 12.0 L Monocytes % (Manual) 11.0 H Eosinophils % (Manual) 6.0 H Nucleated RBC % Seg Neutrophils # Seg Neutrophils # Man 8.8 H Lymphocytes # (Manual) Monocytes # (Manual) 1.4 H Eosinophils # (Manual) 0.8 H PT INR APTT Fibrinogen POC ABG pH ABG pH POC ABG pCO2 POC ABG pO2 ABG pO2 ABG HCO3 ABG O2 Saturation ABG Base Excess ABG Hemoglobin Oxyhemoglobin Sodium 146 H Potassium 3.5 L Chloride Carbon Dioxide BUN 48 H Creatinine Glucose 123 H POC Glucose 120 H Uric Acid Calcium Phosphorus Magnesium Iron TIBC AST ALT Total Creatine Kinase CK-MB (CK-2) Troponin T NT-Pro-B Natriuret Pep Total Protein Albumin Triglycerides HDL Cholesterol Folate Urine WBC (Auto) Urine Creatinine Urine Total Protein Vancomycin Trough 06/23/19 06/24/19 06/24/19 17:39 06:53 06:53 WBC 12.3 H RBC 2.87 L Hgb 8.0 L Hct 24.9 L MCV MCH MCHC RDW 20.5 H Plt Count Lymph % (Auto) [place] % (Auto) 8.8 H Eos % (Auto) 4.4 H Lymph # [place] # 1.1 H Eos # 0.5 H Seg Neutrophils % Seg Neuts % (Manual) Lymphocytes % (Manual) Monocytes % (Manual) Eosinophils % (Manual) Nucleated RBC % Seg Neutrophils # Seg Neutrophils # Man Lymphocytes # (Manual) Monocytes # (Manual) Eosinophils # (Manual) PT INR APTT Fibrinogen POC ABG pH ABG pH POC ABG pCO2 POC ABG pO2 ABG pO2 ABG HCO3 ABG O2 Saturation ABG Base Excess ABG Hemoglobin Oxyhemoglobin Sodium Potassium Chloride 107.1 H Carbon Dioxide 21 L BUN 29 H Creatinine 0.6 L Glucose 117 H POC Glucose 111 H Uric Acid Calcium Phosphorus Magnesium 1.60 L Iron TIBC AST ALT Total Creatine Kinase CK-MB (CK-2) Troponin T NT-Pro-B Natriuret Pep Total Protein Albumin Triglycerides HDL Cholesterol Folate Urine WBC (Auto) Urine Creatinine Urine Total Protein Vancomycin Trough 06/24/19 06/24/19 06/24/19 12:12 18:01 23:20 WBC RBC Hgb Hct MCV MCH MCHC RDW Plt Count Lymph % (Auto) [place] % (Auto) Eos % (Auto) Lymph # [place] # Eos # Seg Neutrophils % Seg Neuts % (Manual) Lymphocytes % (Manual) Monocytes % (Manual) Eosinophils % (Manual) Nucleated RBC % Seg Neutrophils # Seg Neutrophils # Man Lymphocytes # (Manual) Monocytes # (Manual) Eosinophils # (Manual) PT INR APTT Fibrinogen POC ABG pH ABG pH POC ABG pCO2 POC ABG pO2 ABG pO2 ABG HCO3 ABG O2 Saturation ABG Base Excess ABG Hemoglobin Oxyhemoglobin Sodium Potassium Chloride Carbon Dioxide BUN Creatinine Glucose POC Glucose 158 H 133 H 106 H Uric Acid Calcium Phosphorus Magnesium Iron TIBC AST ALT Total Creatine Kinase CK-MB (CK-2) Troponin T NT-Pro-B Natriuret Pep Total Protein Albumin Triglycerides HDL Cholesterol Folate Urine WBC (Auto) Urine Creatinine Urine Total Protein Vancomycin Trough 06/25/19 06/25/19 06/25/19 04:46 04:46 05:36 WBC 12.3 H RBC 2.98 L Hgb 8.3 L Hct 26.4 L MCV MCH MCHC 31 L RDW 20.1 H Plt Count Lymph % (Auto) [place] % (Auto) Eos % (Auto) Lymph # [place] # Eos # Seg Neutrophils % Seg Neuts % (Manual) Lymphocytes % (Manual) Monocytes % (Manual) 10.0 H Eosinophils % (Manual) Nucleated RBC % Seg Neutrophils # Seg Neutrophils # Man 8.1 H Lymphocytes # (Manual) Monocytes # (Manual) 1.2 H Eosinophils # (Manual) PT INR APTT Fibrinogen POC ABG pH ABG pH POC ABG pCO2 POC ABG pO2 ABG pO2 ABG HCO3 ABG O2 Saturation ABG Base Excess ABG Hemoglobin Oxyhemoglobin Sodium 148 H Potassium Chloride 108.0 H Carbon Dioxide BUN 21 H Creatinine 0.7 L Glucose 120 H POC Glucose 121 H Uric Acid Calcium Phosphorus Magnesium Iron TIBC AST ALT Total Creatine Kinase CK-MB (CK-2) Troponin T NT-Pro-B Natriuret Pep Total Protein Albumin Triglycerides HDL Cholesterol Folate Urine WBC (Auto) Urine Creatinine Urine Total Protein Vancomycin Trough 06/25/19 06/25/19 06/26/19 14:02 18:30 00:01 WBC RBC Hgb Hct MCV MCH MCHC RDW Plt Count Lymph % (Auto) [place] % (Auto) Eos % (Auto) Lymph # [place] # Eos # Seg Neutrophils % Seg Neuts % (Manual) Lymphocytes % (Manual) Monocytes % (Manual) Eosinophils % (Manual) Nucleated RBC % Seg Neutrophils # Seg Neutrophils # Man Lymphocytes # (Manual) Monocytes # (Manual) Eosinophils # (Manual) PT INR APTT Fibrinogen POC ABG pH ABG pH POC ABG pCO2 POC ABG pO2 ABG pO2 ABG HCO3 ABG O2 Saturation ABG Base Excess ABG Hemoglobin Oxyhemoglobin Sodium Potassium Chloride Carbon Dioxide BUN Creatinine Glucose POC Glucose 125 H 145 H 142 H Uric Acid Calcium Phosphorus Magnesium Iron TIBC AST ALT Total Creatine Kinase CK-MB (CK-2) Troponin T NT-Pro-B Natriuret Pep Total Protein Albumin Triglycerides HDL Cholesterol Folate Urine WBC (Auto) Urine Creatinine Urine Total Protein Vancomycin Trough 06/26/19 06/26/19 06/26/19 04:43 04:43 05:41 WBC RBC 3.02 L Hgb 8.6 L Hct 27.0 L MCV MCH MCHC RDW 20.4 H Plt Count Lymph % (Auto) [place] % (Auto) Eos % (Auto) Lymph # [place] # Eos # Seg Neutrophils % Seg Neuts % (Manual) Lymphocytes % (Manual) Monocytes % (Manual) 9.0 H Eosinophils % (Manual) Nucleated RBC % Seg Neutrophils # Seg Neutrophils # Man Lymphocytes # (Manual) Monocytes # (Manual) 1.0 H Eosinophils # (Manual) PT INR APTT Fibrinogen POC ABG pH ABG pH POC ABG pCO2 POC ABG pO2 ABG pO2 ABG HCO3 ABG O2 Saturation ABG Base Excess ABG Hemoglobin Oxyhemoglobin Sodium Potassium Chloride Carbon Dioxide BUN Creatinine 0.7 L Glucose 111 H POC Glucose 110 H Uric Acid Calcium Phosphorus Magnesium 1.60 L Iron TIBC AST ALT Total Creatine Kinase CK-MB (CK-2) Troponin T NT-Pro-B Natriuret Pep Total Protein Albumin Triglycerides HDL Cholesterol Folate Urine WBC (Auto) Urine Creatinine Urine Total Protein Vancomycin Trough 06/26/19 06/26/19 06/27/19 11:55 18:07 12:10 WBC RBC Hgb Hct MCV MCH MCHC RDW Plt Count Lymph % (Auto) [place] % (Auto) Eos % (Auto) Lymph # [place] # Eos # Seg Neutrophils % Seg Neuts % (Manual) Lymphocytes % (Manual) Monocytes % (Manual) Eosinophils % (Manual) Nucleated RBC % Seg Neutrophils # Seg Neutrophils # Man Lymphocytes # (Manual) Monocytes # (Manual) Eosinophils # (Manual) PT INR APTT Fibrinogen POC ABG pH ABG pH POC ABG pCO2 POC ABG pO2 ABG pO2 ABG HCO3 ABG O2 Saturation ABG Base Excess ABG Hemoglobin Oxyhemoglobin Sodium Potassium Chloride Carbon Dioxide BUN Creatinine Glucose POC Glucose 159 H 107 H 121 H Uric Acid Calcium Phosphorus Magnesium Iron TIBC AST ALT Total Creatine Kinase CK-MB (CK-2) Troponin T NT-Pro-B Natriuret Pep Total Protein Albumin Triglycerides HDL Cholesterol Folate Urine WBC (Auto) Urine Creatinine Urine Total Protein Vancomycin Trough 06/28/19 06/29/19 06/29/19 05:54 13:10 17:58 WBC RBC Hgb Hct MCV MCH MCHC RDW Plt Count Lymph % (Auto) [place] % (Auto) Eos % (Auto) Lymph # [place] # Eos # Seg Neutrophils % Seg Neuts % (Manual) Lymphocytes % (Manual) Monocytes % (Manual) Eosinophils % (Manual) Nucleated RBC % Seg Neutrophils # Seg Neutrophils # Man Lymphocytes # (Manual) Monocytes # (Manual) Eosinophils # (Manual) PT INR APTT Fibrinogen POC ABG pH ABG pH POC ABG pCO2 POC ABG pO2 ABG pO2 ABG HCO3 ABG O2 Saturation ABG Base Excess ABG Hemoglobin Oxyhemoglobin Sodium Potassium Chloride Carbon Dioxide BUN Creatinine Glucose POC Glucose 107 H 115 H 108 H Uric Acid Calcium Phosphorus Magnesium Iron TIBC AST ALT Total Creatine Kinase CK-MB (CK-2) Troponin T NT-Pro-B Natriuret Pep Total Protein Albumin Triglycerides HDL Cholesterol Folate Urine WBC (Auto) Urine Creatinine Urine Total Protein Vancomycin Trough
[2019-06-30] MEDS: POTASSIUM CHLORIDE 20 MEQ PACKET FEEDTUBE SCH (11:43)
[2019-06-30] MEDS: APIXABAN 2.5 MG TAB PO SCH ×2 (11:43→21:15)
[2019-06-30] MEDS: amLODIPine 10 MG TAB PO SCH (11:43)
[2019-06-30] MEDS: predniSONE 10 MG TAB PO SCH (11:43)
[2019-06-30] MEDS: hydroCHLOROthiazide 25 MG TAB PO SCH (11:44)
[2019-06-30] MEDS: FAMOTIDINE 20 MG TAB PO SCH ×2 (11:44→21:15)
[2019-06-30] MEDS: SCOPOLAMINE TRANSDERMAL PATCH 72 HR TD SCH (11:48)
[2019-06-30] MEDS: FERROUS SULFATE 308 MG (62mg Elemental Iron) / 7 ML ELIXIR PO SCH (11:49)
[2019-06-30] MEDS: MULTIVITAMINS 5 ML ORAL LIQUID PO SCH (12:25)
--- NOTE | 2019-06-30 12:58 | Progress Note ---
Assessment and Plan Assessment and plan: 34-year-old man with morbid obesity was brought to the hospital for shortness of breath and insomnia. He was found to have severe hypoxia and bradycardia who then became pulseless, he was cyanotic and he was intubated after receiving CPR with 2 rounds of epinephrine. Patient was intubated, extubated and reintubated, unable to wean vent dependent, underwent trach and PEG on 06/22/2019, later weaned off vent on T piece alert and awake in mild distress. Discharge Planning per case management[social/insurance issues] --Acute respiratory failure; vent dependent/status post trach and PEG Off ventilatory support, on T-piece ,trach care, nebulizers Pulmonary critical following --Persistent fevers; leukocytosis , resolved Internal jugular tunneled hemodialysis catheter removed ID evaluated , off antibiotics --Obesity hypoventilation syndrome Status post tracheostomy, titrate O2 sats to more than 90% --Status post cardiac arrest mild anoxic brain injury patient's mentation is improved ., EEG was negative for seizures and neurology evaluated --Severe malnutrition Dysphasia; dw with his mom, she is agreeable to PEG tube, GS consulted Dietitian input appreciated, continue tube feeds --Anemia of chronic disease : Closely monitor H&H and transfuse as needed. 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 Now Patient is on Eliquis --Acute kidney injury due to ATN : Requiring dialysis Resolved, nephrology following. --Hypernatremia/Hypokalemia/ hypomagnesemia: Resolved --Morbid obesity; will need weight loss program upon discharge --DVT prophylaxis; scd /Eliquis Plan of care discussed with the patient and his nurse Physical therapy/occupational therapy when patient is stable Disposition ; home with home health versus placement when patient is stable Social and insurance issues. Critical care time 32 minutes History Interval history: Assessment and examined at the [facility] patient's chart medication list reviewed. Patient status post tracheostomy on T piece, in mild distress, copious secretions Vital signs noted Hospitalist Physical - Constitutional Vitals: Temp Pulse Resp BP Pulse Ox 98.7 F 89 25 H 138/81 98 06/30/19 12:00 06/30/19 11:43 06/30/19 10:00 06/30/19 11:43 06/30/19 10:06 General appearance: Present: mild distress, well-nourished, obese (morbidly obese), other (tracheostomy /T-piece) - EENT Eyes: Present: PERRL, EOM intact - Neck Neck: Present: supple, normal ROM - Respiratory Respiratory effort: normal Respiratory: bilateral: diminished, rales, rhonchi, negative: wheezing - Cardiovascular Rhythm: regular Heart Sounds: Present: S1 & S2 - Extremities Extremities: no ischemia, No edema - Abdominal General gastrointestinal: soft, non-tender, non-distended, normal bowel sounds, other (PEG tube in place) - Integumentary Integumentary: Present: clear, warm - Psychiatric Psychiatric: appropriate mood/affect, cooperative - Neurologic Neurologic: moves all extremities Results - Labs CBC & Chem 7: 06/26/19 04:43 06/26/19 04:43 Labs: Laboratory Last Values WBC 11.0 K/mm3 (4.5-11.0) 06/26/19 04:43 RBC 3.02 M/mm3 (3.65-5.03) L 06/26/19 04:43 Hgb 8.6 gm/dl (11.8-15.2) L 06/26/19 04:43 Hct 27.0 % (35.5-45.6) L 06/26/19 04:43 MCV 89 fl (84-94) 06/26/19 04:43 MCH 28 pg (28-32) 06/26/19 04:43 MCHC 32 % (32-34) 06/26/19 04:43 RDW 20.4 % (13.2-15.2) H 06/26/19 04:43 Plt Count 232 K/mm3 (140-440) 06/26/19 04:43 Lymph % (Auto) 23.8 % (13.4-35.0) 06/24/19 06:53 [place] % (Auto) 8.8 % (0.0-7.3) H 06/24/19 06:53 Eos % (Auto) 4.4 % (0.0-4.3) H 06/24/19 06:53 Baso % (Auto) 0.9 % (0.0-1.8) 06/24/19 06:53 Lymph # 2.9 K/mm3 (1.2-5.4) 06/24/19 06:53 [place] # 1.1 K/mm3 (0.0-0.8) H 06/24/19 06:53 Eos # 0.5 K/mm3 (0.0-0.4) H 06/24/19 06:53 Baso # 0.1 K/mm3 (0.0-0.1) 06/24/19 06:53 Add Manual Diff Complete 06/26/19 04:43 Total Counted 100 06/26/19 04:43 Seg Neutrophils % 62.1 % (40.0-70.0) 06/24/19 06:53 Seg Neuts % (Manual) 60.0 % (40.0-70.0) 06/26/19 04:43 Band Neutrophils % 4.0 % 06/26/19 04:43 Lymphocytes % (Manual) 25.0 % (13.4-35.0) 06/26/19 04:43 Reactive Lymphs % (Man) 0 % 06/26/19 04:43 Monocytes % (Manual) 9.0 % (0.0-7.3) H 06/26/19 04:43 Eosinophils % (Manual) 2.0 % (0.0-4.3) 06/26/19 04:43 Basophils % (Manual) 0 % (0.0-1.8) 06/26/19 04:43 Metamyelocytes % 0 % 06/26/19 04:43 Myelocytes % 0 % 06/26/19 04:43 Promyelocytes % 0 % 06/26/19 04:43 Blast Cells % 0 % 06/26/19 04:43 Nucleated RBC % Not Reportable 06/26/19 04:43 Seg Neutrophils # 7.7 K/mm3 (1.8-7.7) 06/24/19 06:53 Seg Neutrophils # Man 6.6 K/mm3 (1.8-7.7) 06/26/19 04:43 Band Neutrophils # 0.4 K/mm3 06/26/19 04:43 Lymphocytes # (Manual) 2.8 K/mm3 (1.2-5.4) 06/26/19 04:43 Abs React Lymphs (Man) 0.0 K/mm3 06/26/19 04:43 Monocytes # (Manual) 1.0 K/mm3 (0.0-0.8) H 06/26/19 04:43 Eosinophils # (Manual) 0.2 K/mm3 (0.0-0.4) 06/26/19 04:43 Basophils # (Manual) 0.0 K/mm3 (0.0-0.1) 06/26/19 04:43 Metamyelocytes # 0.0 K/mm3 06/26/19 04:43 Myelocytes # 0.0 K/mm3 06/26/19 04:43 Promyelocytes # 0.0 K/mm3 06/26/19 04:43 Blast Cells # 0.0 K/mm3 06/26/19 04:43 WBC Morphology Not Reportable 06/26/19 04:43 Hypersegmented Neuts Not Reportable 06/26/19 04:43 Hyposegmented Neuts Not Reportable 06/26/19 04:43 Hypogranular Neuts Not Reportable 06/26/19 04:43 Smudge Cells Not Reportable 06/26/19 04:43 Toxic Granulation Not Reportable 06/26/19 04:43 Toxic Vacuolation Not Reportable 06/26/19 04:43 Dohle Bodies Not Reportable 06/26/19 04:43 Pel[place]-Huet Anomaly Not Reportable 06/26/19 04:43 Renea Rods Not Reportable 06/26/19 04:43 Platelet Estimate Consistent w auto 06/26/19 04:43 Clumped Platelets Not Reportable 06/26/19 04:43 Plt Clumps, EDTA Not Reportable 06/26/19 04:43 Large Platelets Not Reportable 06/26/19 04:43 Giant Platelets Not Reportable 06/26/19 04:43 Platelet Satelliting Not Reportable 06/26/19 04:43 Plt Morphology Comment Not Reportable 06/26/19 04:43 RBC Morphology Not Reportable 06/26/19 04:43 Dimorphic RBCs Not Reportable 06/26/19 04:43 Polychromasia Not Reportable 06/26/19 04:43 Hypochromasia Not Reportable 06/26/19 04:43 Poikilocytosis Not Reportable 06/26/19 04:43 Anisocytosis 1+ 06/26/19 04:43 Microcytosis Not Reportable 06/26/19 04:43 Macrocytosis Not Reportable 06/26/19 04:43 Spherocytes Not Reportable 06/26/19 04:43 Pappenheimer Bodies Not Reportable 06/26/19 04:43 Sickle Cells Not Reportable 06/26/19 04:43 Target Cells Not Reportable 06/26/19 04:43 Tear Drop Cells Not Reportable 06/26/19 04:43 Ovalocytes Not Reportable 06/26/19 04:43 Stomatocytes 3+ 06/23/19 05:24 Helmet Cells Not Reportable 06/26/19 04:43 [place] Bodies Not Reportable 06/26/19 04:43 [place] Rings Not Reportable 06/26/19 04:43 [place] Cells Not Reportable 06/26/19 04:43 Bite Cells Not Reportable 06/26/19 04:43 Crenated Cell Not Reportable 06/26/19 04:43 Elliptocytes Rare 06/26/19 04:43 Acanthocytes (Spur) Not Reportable 06/26/19 04:43 Rouleaux Not Reportable 06/26/19 04:43 Hemoglobin C Crystals Not Reportable 06/26/19 04:43 Schistocytes Not Reportable 06/26/19 04:43 Malaria parasites Not Reportable 06/26/19 04:43 [place] Bodies Not Reportable 06/26/19 04:43 Hem Pathologist Commnt No 06/26/19 04:43 PT 15.4 Sec. (12.2-14.9) H 05/01/19 Unknown INR 1.23 (0.87-1.13) H 05/01/19 Unknown APTT 22.7 Sec. (24.2-36.6) L 05/01/19 Unknown Fibrinogen 194 mg/dl (211-480) L 06/17/19 12:45 Heparin Anti-Xa, Unfract Negative (Negative) 06/17/19 12:45 POC ABG pH 7.462 (7.35-7.45) H 06/05/19 03:52 ABG pH 7.469 pH Units (7.350-7.450) H 06/23/19 02:00 POC ABG pCO2 39.8 (35-45) 06/05/19 03:52 ABG pCO2 39.4 mm Hg 06/23/19 02:00 POC ABG pO2 86 (80-105) 06/05/19 03:52 ABG pO2 58.7 mm Hg (80.0-90.0) L 06/23/19 02:00 POC ABG HCO3 28.4 (22-26 mml/L) 06/05/19 03:52 ABG HCO3 28.0 mmol/L (20.0-26.0) H 06/23/19 02:00 POC ABG Total CO2 30 (23-27mmol/L) 06/05/19 03:52 POC ABG O2 Sat 97 06/05/19 03:52 ABG O2 Saturation 94.6 % (95.0-99.0) L 06/23/19 02:00 ABG O2 Content 9.2 (0.0-44) 06/23/19 02:00 POC ABG Base Excess 5 ((-2) - (+3)mmol/L) 06/05/19 03:52 ABG Base Excess 4.0 mmol/L (-2.0-3.0) H 06/23/19 02:00 ABG Hemoglobin 7.1 gm/dl (14.0-18.0) L 06/23/19 02:00 ABG Carboxyhemoglobin 2.0 % (0.0-5.0) 06/23/19 02:00 ABG Methemoglobin 0.5 % (0.0-1.5) 06/23/19 02:00 Oxyhemoglobin 92.2 % (95.0-99.0) L 06/23/19 02:00 FiO2 30 % 06/23/19 02:00 Sodium 141 mmol/L (137-145) 06/26/19 04:43 Potassium 3.8 mmol/L (3.6-5.0) 06/26/19 04:43 Chloride 103.2 mmol/L (98-107) 06/26/19 04:43 Carbon Dioxide 23 mmol/L (22-30) 06/26/19 04:43 Anion Gap 19 mmol/L 06/26/19 04:43 BUN 19 mg/dL (9-20) 06/26/19 04:43 Creatinine 0.7 mg/dL (0.8-1.5) L 06/26/19 04:43 Estimated GFR > 60 ml/min 06/26/19 04:43 BUN/Creatinine Ratio 27 % 06/26/19 04:43 Glucose 111 mg/dL (75-100) H 06/26/19 04:43 POC Glucose 108 (70-105) H 06/30/19 12:00 Osmolality 327 Mosm/kg 05/07/19 13:45 Uric Acid 18.0 mg/dL (3.5-7.6) H 05/07/19 13:45 Calcium 9.2 mg/dL (8.4-10.2) 06/26/19 04:43 Phosphorus 3.70 mg/dL (2.5-4.5) 06/10/19 05:45 Magnesium 1.60 mg/dL (1.7-2.3) L 06/26/19 04:43 Iron 45 ug/dL (49-181) L 06/20/19 09:12 TIBC 110 mcg/dL (250-450) L 06/20/19 09:12 Ferritin 315.2 ng/mL (13.0-400.0) 06/20/19 09:12 Total Bilirubin 0.50 mg/dL (0.1-1.2) 06/08/19 04:20 AST 23 units/L (5-40) 06/08/19 04:20 ALT 66 units/L (7-56) H 06/08/19 04:20 Alkaline Phosphatase 59 units/L (35-129) 06/08/19 04:20 Total Creatine Kinase 131 units/L (55-170) 05/02/19 04:41 CK-MB (CK-2) 5.2 ng/mL (0.0-4.0) H 05/02/19 04:41 CK-MB (CK-2) Rel Index 3.9 (0-4) 05/02/19 04:41 Troponin T 0.067 ng/mL (0.00-0.029) H D 05/02/19 04:41 NT-Pro-B Natriuret Pep 6831 pg/mL (0-450) H 05/01/19 Unknown Total Protein 5.5 g/dL (6.3-8.2) L 06/08/19 04:20 Albumin 2.9 g/dL (3.9-5) L 06/08/19 04:20 Albumin/Globulin Ratio 1.1 % 06/08/19 04:20 Triglycerides 210 mg/dL (2-149) H 06/19/19 04:30 Cholesterol 173 mg/dL (50-199) 05/02/19 00:06 LDL Cholesterol Direct 126 mg/dL (50-130) 05/02/19 00:06 HDL Cholesterol 18 mg/dL (40-59) L 05/02/19 00:06 Cholesterol/HDL Ratio 9.61 % 05/02/19 00:06 Serotonin Release Assay See scanned results 06/17/19 12:45 Vitamin B12 353.0 pg/mL (211-911) 06/20/19 09:12 Folate 7.01 ng/mL (7.3-26.0) L 06/20/19 09:12 Procalcitonin 0.05 ng/mL (<0.15) 06/17/19 12:45 Urine Color Yellow (Yellow) 06/17/19 12:45 Urine Turbidity Slightly-cloudy (Clear) 06/17/19 12:45 Urine pH 5.0 (5.0-7.0) 06/17/19 12:45 Ur Specific [place] 1.013 (1.003-1.030) 06/17/19 12:45 Urine Protein <15 mg/dl mg/dL (Negative) 06/17/19 12:45 Urine Glucose (UA) Neg mg/dL (Negative) 06/17/19 12:45 Urine Ketones Neg mg/dL (Negative) 06/17/19 12:45 Urine Blood Sm (Negative) 06/17/19 12:45 Urine Nitrite Neg (Negative) 06/17/19 12:45 Urine Bilirubin Neg (Negative) 06/17/19 12:45 Urine Urobilinogen < 2.0 mg/dL (<2.0) 06/17/19 12:45 Ur Leukocyte Esterase Neg (Negative) 06/17/19 12:45 Urine WBC (Auto) 2.0 /HPF (0.0-6.0) 06/17/19 12:45 Urine RBC (Auto) 2.0 /HPF (0.0-6.0) 06/17/19 12:45 U Epithel Cells (Auto) < 1.0 /HPF (0-13.0) 06/17/19 12:45 Urine Bacteria (Auto) 1+ /HPF (Negative) 05/20/19 12:00 Uric Acid Crystals 3+ 05/03/19 10:55 Urine Mucus Few /HPF 06/17/19 12:45 Urine Yeast (Bud[place]) 3+ /HPF 05/20/19 12:00 Urine Creatinine 292.8 mg/dL (0.1-20.0) H 05/07/19 22:40 Urine Sodium 11 mmol/L 05/07/19 22:40 Urine Total Protein 269 mg/dL (5-11.8) H 05/07/19 22:40 Vancomycin Trough 20.5 ug/mL (5.0-20.0) H 05/15/19 09:00 Random Vancomycin 11.5 ug/mL (0-40.0) 05/27/19 06:00 AMNA Screen Negative (Negative) 05/07/19 13:45 Heparin-induced Plt Ab Negative (Negative) 06/17/19 12:45 UF Heparin High Dose 13 % Release 06/17/19 12:45 YUNG UFH Low Dose 0.1 8 % Release 06/17/19 12:45 YUNG UFH Low Dose 0.5 7 % Release 06/17/19 12:45 Hepatitis A IgM Ab Non-reactive (NonReactive) 05/07/19 13:45 Hep Bs Antigen Non-reactive (Negative) 05/07/19 13:45 Hep B Core IgM Ab Non-reactive (NonReactive) 05/07/19 13:45 Hepatitis C Antibody Non-reactive (NonReactive) 05/07/19 13:45 Influenza A (Rapid) Negative (Negative) 06/17/19 11:35 Influenza B (Rapid) Negative (Negative) 06/17/19 11:35 Active Medications - Current Medications Current Medications: Generic Name Dose Route Start Last Admin Trade Name Freq PRN Reason Stop Dose Admin Amlodipine Besylate 10 mg 06/25/19 11:00 06/30/19 11:43 Amlodipine PO 10 mg DAILY VICKEY Administration Lipase/Protease/Amylase 1 each 05/14/19 15:[address] 10,500 Unit FEEDTUBE PRN PRN For Clogged Feeding Tube Apixaban 2.5 mg 06/23/19 22:00 06/30/19 11:43 Eliquis PO 2.5 mg Q12HR VICKEY Administration Protocol Dextrose 50 gm 05/01/19 20:24 D50w (25gm) Vial IV Q30MIN PRN Hypoglycemia Protocol Famotidine 20 mg 06/17/19 10:00 06/30/19 11:44 Pepcid PO 20 mg BID VICKEY Administration Fentanyl 25 mcg 06/24/19 17:00 06/27/19 12:10 Sublimaze IV 25 mcg Q2HR PRN Administration Pain, Moderate (4-6) Ferrous Sulfate 308 mg 06/18/19 12:00 06/30/19 11:49 Ferrous Sulfate PO 308 mg QDAY VICKEY Administration Hydrochlorothiazide 25 mg 06/26/19 11:00 06/30/19 11:44 Hctz PO 25 mg QDAY VICKEY Administration Hydrophilic Ointment 1 applic 06/16/19 17:34 Vaseline Lip Therapy TP Q2HR PRN Dry Lips Insulin Human Lispro 0 unit 06/01/19 14:00 06/30/19 05:17 Humalog SUB-Q Not Given Q6HR [facility] Protocol Labetalol HCl 10 mg 06/11/19 22:48 06/29/19 04:24 Labetalol IV 10 mg Q4H PRN Administration BP >170/105; hold for HR <60 Labetalol HCl 200 mg 06/28/19 10:00 06/30/19 05:17 Labetalol PO 200 mg Q8HR VICKEY Administration Multi-Ingred Cream/Lotion/Oil/Oint 1 applic 06/16/19 18:00 Artificial Tears Ophth Oint OU Q4HR PRN Dry Eye(s) Multivitamins 5 ml 06/29/19 12:00 06/29/19 13:21 Centrum Liq PO 5 ml QDAY VICKEY Administration Potassium Chloride 40 meq 06/19/19 10:00 06/30/19 11:43 Potassium Chloride FEEDTUBE 40 meq QDAY [facility] Administration Prednisone 5 mg 06/29/19 12:28 06/30/19 11:43 Deltasone PO 5 mg QDAY VICKEY Administration Scopolamine 1 each 06/27/19 09:00 06/30/19 11:48 Transderm-Scop TD 1 each Q3D VICKEY Administration Simple Syrup 15 ml 05/14/19 15:01 Simple Syrup FEEDTUBE PRN PRN Hypoglycemia Simple Syrup 30 ml 05/14/19 15:01 Simple Syrup FEEDTUBE PRN PRN Hypoglycemia Sodium Bicarbonate 325 mg 05/14/19 15:01 Sodium Bicarbonate FEEDTUBE PRN PRN For Clogged Feeding Tube Nutrition/Malnutrition Assess - Dietary Evaluation Nutrition/Malnutrition Findings: Nutrition Notes Start: 05/04/19 12:54 Freq: Status: Active Protocol: Document 06/28/19 09:24 LP (Rec: 06/28/19 09:29 LP [id number]) Nutrition Notes Initial or Follow up Reassessment Current Diagnosis Acute Kidney Injury,Sepsis, Respiratory Failure Other Pertinent Diagnosis HD Current Diet Nepro 1.8 at 50 ml/hr Labs/Tests 06/26 Na 141 Pertinent Medications Reviewed Height 6 ft 4 in Weight 257.2 kg [place] Body Weight (kg) 91.81 BMI 69.0 Weight Status Morbidly Obese Subjective/Other Information Pt tolerating TF at goal rate. Percent of energy/protein needs met: 100%/42% Burn Absent Trauma Absent GI Symptoms None Current % PO Negligible Minimum of two criteria No Fluid Accumulation Moderate to Severe (severe) #1 Nutrition Diagnosis Inadequate oral intake Diagnosis Progress(for reassessment Continues documentation) Is patient on ventilator? Yes Is Patient Ambulatory and/or Out of Bed No REE-([place]-St. Jeor-confined to bed) 4342.284 Kcal/Kg value to use for calculation 8 Approximate Energy Requirements Using 8 kcal/Kg Calculation Used for Recommendations Kcal/kg Additional Notes PRO needs: up to 229g (up to 2 .5g/kg IBW) Fluid needs: 1 ml/kcal Nutrition Intervention Change Diet Order: Continue TF Nutrition Support: Nepro 1.8 at 50 ml/hr Flush 400ml q4h for hypernatremia. and 250ml q4h once resolved Kcal 2,160 Protein (gm) 97 Fluid (mL) 872 Goal #1 TF tolerance Goal #2 Meet at least 75% kcal/ and 40 % of PRO needs via TF Anticipated Discharge Needs: Unable to determine at this time Follow-Up By: 07/02/19 Additional Comments Follow for stable TF
[2019-07-01] MEDS: INSULIN LISPRO 100 UNIT/ML SUB-Q SCH ×4 (00:02→18:31)
[2019-07-01 08:11] LABS: Basophils # (Auto) 0.1 K/mm3 (0.0-0.1); Basophils % (Auto) 0.8 % (0.0-1.8); Eosinophils # (Auto) 0.2 K/mm3 (0.0-0.4); Eosinophils % (Auto) 1.5 % (0.0-4.3); Hematocrit 28.4 % (35.5-45.6); Lymphocytes # (Auto) 0.9 K/mm3 (1.2-5.4); Lymphocytes % (Auto) 8.3 % (13.4-35.0); Mean Corpuscular HGB Conc 32 % (32-34); Mean Corpuscular Volume 87 fl (84-94); Monocytes # (Auto) 1.2 K/mm3 (0.0-0.8); Platelet Count 248 K/mm3 (140-440); Red Blood Count 3.24 M/mm3 (3.65-5.03)
[2019-07-01 08:13] LABS: Red Cell Distribution Width 20.8 % (13.2-15.2)
[2019-07-01 08:28] LABS: BUN/Creatinine Ratio 25; Blood Urea Nitrogen 10 mg/dL (9-20); Calcium 9.6 mg/dL (8.4-10.2); Hemolysis Index 12
[2019-07-01] MEDS: MULTIVITAMINS 5 ML ORAL LIQUID PO SCH (09:14)
[2019-07-01] MEDS: APIXABAN 2.5 MG TAB PO SCH ×2 (09:16→23:16)
[2019-07-01] MEDS: hydroCHLOROthiazide 25 MG TAB PO SCH (09:16)
[2019-07-01] MEDS: FAMOTIDINE 20 MG TAB PO SCH ×2 (09:16→23:16)
[2019-07-01] MEDS: predniSONE 10 MG TAB PO SCH (09:16)
[2019-07-01] MEDS: FERROUS SULFATE 308 MG (62mg Elemental Iron) / 7 ML ELIXIR PO SCH (09:17)
[2019-07-01] MEDS: amLODIPine 10 MG TAB PO SCH (09:17)
[2019-07-01] MEDS: POTASSIUM CHLORIDE 20 MEQ PACKET FEEDTUBE SCH (09:22)
--- NOTE | 2019-07-01 09:58 | Progress Note ---
Assessment and Plan 34 y/o male with acute hypoxic, hypercapnic respiratory failure now with trach and uncontrolled hypertension. 07/01/2019: Continue current care. PT/OT. Work on discharge planning. steroids to 5 daily, will likely stop Friday or Friday. Stable but my concern is that if he goes to the floor, he will not get the proper suctioning needed. Will continue IMCU service 06/26/2019: Will discontinue vent from room. patient was placed on vent last night. Not sure why. Will place orders for continued T-piece. Appears he was doing well with no issues. If tolerates being off vent tonight, transition to step down tomorrow. Increase HCTZ to 25 06/25/2019: Continue T-piece today as tolerated. Only rest of vent if needed. If not needed tonight then will discontinue vent from room. Spoke with IR, and they will remove Perm cath today as this could be a cause of fevers. Follow up cultures and ID recs. Will increase Free H2O to [id number]. Change steroids to 10 PO starting tomorrow morning. Added scheduled BP meds. 06/24/2019: Will attempt T-piece later today, if tolerates, then will continue trial indefinitely. PT/OT will need to start seeing him again. Will drop steroids to 10 daily (PO) starting Friday morning. 06/23/2019: PSV all day today and tomorrow. Will start T-piece either tomorrow or Friday. Tolerating Feeds 06/22/2019: Patient scheduled for OR today. Plan as outlined in Dr. Saez's note from yesterday. Discussed with patient again this am. Really appreciate surgery help with this and the promptness of procedure. Will follow up post-op later today. 06/21/2019: Unfortunately re-intubated last week. Will need Trach and Peg, but I doubt peg will happen secondary to his size. Will discuss with surgery and maybe they can just put in a number 6 XLT from the start. I think he will get off the vent relatively quickly and can start to eat. This trach will be indefinite. I have explained this to him. I have not seen his family at the bedside during this admission but Im told they come in the evenings. 06/12/2019: Started HCTZ 50 daily and Labetalol 100 TID. Will increase Labetalol to 200 TID. Already on Clonidine patch. Continue Minoxidil. Will start to wean drip. PT/OT. Feeds through NG now that this is in place. Will need speech re-evaluation. Will order NT suctioning at least [id number] for the next 24 hours. 06/11/2019: Bipap at night and PRN. Na levels are increasing. Agree with D5W. Unable to place DH, several nurses tried. Will ask speech to come by and reassess now that patient is more willing to cooperate. . Continue PT/OT, sat up on side of bed yesterday. Continue IMCU monitoring for now. As stated below, patient was intubated for 37 days. CCT 31 minutes. Subjective Date of service: 07/01/19 Principal diagnosis: anemia - LOw PLT Interval history: No acute events. Stable on T-piece. Still requires frequent suctioning. Objective Vital Signs - 12hr 06/30/19 06/30/19 06/30/19 22:00 23:00 23:02 Temperature Pulse Rate 98 H 101 H 103 H Pulse Rate [ From Monitor] Respiratory 30 H 20 22 Rate Blood Pressure 144/81 152/80 152/80 O2 Sat by Pulse 95 98 98 Oximetry O2 Sat by Pulse Oximetry [ Assessment] 07/01/19 07/01/19 07/01/19 00:00 01:00 02:00 Temperature 98.8 F Pulse Rate 88 88 93 H Pulse Rate [ 91 H From Monitor] Respiratory 29 H 24 21 Rate Blood Pressure 141/77 143/86 148/90 O2 Sat by Pulse 99 99 98 Oximetry O2 Sat by Pulse 98 Oximetry [ Assessment] 07/01/19 07/01/19 07/01/19 03:00 04:00 05:00 Temperature 98.4 F Pulse Rate 93 H 97 H 89 Pulse Rate [ 91 H From Monitor] Respiratory 22 18 24 Rate Blood Pressure 146/76 163/98 163/98 O2 Sat by Pulse 100 97 98 Oximetry O2 Sat by Pulse Oximetry [ Assessment] 07/01/19 07/01/19 07/01/19 06:00 08:00 09:17 Temperature 100.3 F H Pulse Rate 99 H 99 H Pulse Rate [ From Monitor] Respiratory 21 Rate Blood Pressure 169/85 134/66 O2 Sat by Pulse 92 Oximetry O2 Sat by Pulse Oximetry [ Assessment] Constitutional: other (morbidly obese male, critically ill on vent) Eyes: non-icteric ENT: oropharynx moist Neck: other (extremely large in circumference) Effort: normal Ascultation: Bilateral: diminished breath sounds (secondary to body habitus), rh onchi Cardiovascular: regular rate and rhythm (no mrg) Gastrointestinal: normoactive bowel sounds, soft, non-tender, other (obese) Integumentary: other (L hand is wrapped) Extremities: no cyanosis, pink and warm, other (1+ generalized edema) Neurologic: normal mental status, non-focal exam Psychiatric: mood appropriate, affect normal CBC and BMP: 07/01/19 07:58 07/01/19 07:58 ABG, PT/INR, D-dimer: ABG POC ABG pH 7.462 (7.35-7.45) H 06/05/19 03:52 ABG pH 7.469 pH Units (7.350-7.450) H 06/23/19 02:00 POC ABG pCO2 39.8 (35-45) 06/05/19 03:52 ABG pCO2 39.4 mm Hg 06/23/19 02:00 POC ABG pO2 86 (80-105) 06/05/19 03:52 ABG pO2 58.7 mm Hg (80.0-90.0) L 06/23/19 02:00 POC ABG HCO3 28.4 (22-26 mml/L) 06/05/19 03:52 POC ABG Total CO2 30 (23-27mmol/L) 06/05/19 03:52 POC ABG O2 Sat 97 06/05/19 03:52 ABG O2 Saturation 94.6 % (95.0-99.0) L 06/23/19 02:00 PT/INR, D-dimer PT 15.4 Sec. (12.2-14.9) H 05/01/19 Unknown INR 1.23 (0.87-1.13) H 05/01/19 Unknown Abnormal lab findings: Abnormal Labs 05/01/19 05/01/19 05/01/19 17:50 19:26 22:36 WBC RBC Hgb Hct MCV MCH MCHC RDW Plt Count Lymph % (Auto) [place] % (Auto) Eos % (Auto) Lymph # [place] # Eos # Seg Neutrophils % Seg Neuts % (Manual) Lymphocytes % (Manual) Monocytes % (Manual) Eosinophils % (Manual) Nucleated RBC % Seg Neutrophils # Seg Neutrophils # Man Lymphocytes # (Manual) Monocytes # (Manual) Eosinophils # (Manual) PT INR APTT Fibrinogen POC ABG pH 7.272 L 7.331 L ABG pH POC ABG pCO2 52.8 H POC ABG pO2 ABG pO2 ABG HCO3 ABG O2 Saturation ABG Base Excess ABG Hemoglobin Oxyhemoglobin Sodium 136 L Potassium 6.5 H* Chloride 97.2 L Carbon Dioxide BUN 60 H Creatinine Glucose 113 H POC Glucose Uric Acid Calcium Phosphorus Magnesium 2.40 H Iron TIBC AST 139 H ALT 154 H Total Creatine Kinase CK-MB (CK-2) Troponin T NT-Pro-B Natriuret Pep Total Protein Albumin 3.8 L Triglycerides HDL Cholesterol Folate Urine WBC (Auto) Urine Creatinine Urine Total Protein Vancomycin Trough 05/01/19 05/01/19 05/01/19 Unknown Unknown Unknown WBC 16.1 H RBC Hgb Hct MCV MCH MCHC RDW 17.2 H Plt Count Lymph % (Auto) [place] % (Auto) 9.6 H Eos % (Auto) Lymph # [place] # 1.5 H Eos # Seg Neutrophils % 73.0 H Seg Neuts % (Manual) Lymphocytes % (Manual) Monocytes % (Manual) Eosinophils % (Manual) Nucleated RBC % Seg Neutrophils # 11.7 H Seg Neutrophils # Man Lymphocytes # (Manual) Monocytes # (Manual) Eosinophils # (Manual) PT 15.4 H INR 1.23 H APTT 22.7 L Fibrinogen POC ABG pH ABG pH POC ABG pCO2 POC ABG pO2 ABG pO2 ABG HCO3 ABG O2 Saturation ABG Base Excess ABG Hemoglobin Oxyhemoglobin Sodium Potassium Chloride Carbon Dioxide BUN Creatinine Glucose POC Glucose Uric Acid Calcium Phosphorus Magnesium Iron TIBC AST ALT Total Creatine Kinase CK-MB (CK-2) Troponin T NT-Pro-B Natriuret Pep 6831 H Total Protein Albumin Triglycerides HDL Cholesterol Folate Urine WBC (Auto) Urine Creatinine Urine Total Protein Vancomycin Trough 05/01/19 05/02/19 05/02/19 Unknown 00:06 00:06 WBC RBC Hgb Hct MCV MCH MCHC RDW Plt Count Lymph % (Auto) [place] % (Auto) Eos % (Auto) Lymph # [place] # Eos # Seg Neutrophils % Seg Neuts % (Manual) Lymphocytes % (Manual) Monocytes % (Manual) Eosinophils % (Manual) Nucleated RBC % Seg Neutrophils # Seg Neutrophils # Man Lymphocytes # (Manual) Monocytes # (Manual) Eosinophils # (Manual) PT INR APTT Fibrinogen POC ABG pH ABG pH POC ABG pCO2 POC ABG pO2 ABG pO2 ABG HCO3 ABG O2 Saturation ABG Base Excess ABG Hemoglobin Oxyhemoglobin Sodium Potassium Chloride Carbon Dioxide BUN Creatinine Glucose POC Glucose Uric Acid Calcium Phosphorus 4.90 H Magnesium Iron TIBC AST ALT Total Creatine Kinase 226 H CK-MB (CK-2) 5.7 H Troponin T 0.044 H NT-Pro-B Natriuret Pep Total Protein Albumin Triglycerides 182 H HDL Cholesterol 18 L Folate Urine WBC (Auto) Urine Creatinine Urine Total Protein Vancomycin Trough 05/02/19 05/02/19 05/02/19 02:08 04:40 04:41 WBC 17.6 H RBC Hgb Hct MCV MCH 27 L MCHC RDW 17.4 H Plt Count Lymph % (Auto) 10.2 L [place] % (Auto) 11.0 H Eos % (Auto) Lymph # [place] # 1.9 H Eos # Seg Neutrophils % 78.0 H Seg Neuts % (Manual) Lymphocytes % (Manual) Monocytes % (Manual) Eosinophils % (Manual) Nucleated RBC % Seg Neutrophils # 13.8 H Seg Neutrophils # Man Lymphocytes # (Manual) Monocytes # (Manual) Eosinophils # (Manual) PT INR APTT Fibrinogen POC ABG pH ABG pH POC ABG pCO2 46.8 H POC ABG pO2 63 L ABG pO2 ABG HCO3 ABG O2 Saturation ABG Base Excess ABG Hemoglobin Oxyhemoglobin Sodium Potassium Chloride 96.3 L Carbon Dioxide BUN 63 H Creatinine 1.7 H Glucose POC Glucose Uric Acid Calcium Phosphorus Magnesium Iron TIBC AST ALT Total Creatine Kinase CK-MB (CK-2) Troponin T NT-Pro-B Natriuret Pep Total Protein Albumin Triglycerides HDL Cholesterol Folate Urine WBC (Auto) Urine Creatinine Urine Total Protein Vancomycin Trough 05/02/19 05/02/19 05/02/19 04:41 04:41 16:05 WBC RBC Hgb Hct MCV MCH MCHC RDW Plt Count Lymph % (Auto) [place] % (Auto) Eos % (Auto) Lymph # [place] # Eos # Seg Neutrophils % Seg Neuts % (Manual) Lymphocytes % (Manual) Monocytes % (Manual) Eosinophils % (Manual) Nucleated RBC % Seg Neutrophils # Seg Neutrophils # Man Lymphocytes # (Manual) Monocytes # (Manual) Eosinophils # (Manual) PT INR APTT Fibrinogen POC ABG pH ABG pH POC ABG pCO2 POC ABG pO2 ABG pO2 66.6 L ABG HCO3 31.9 H ABG O2 Saturation 92.5 L ABG Base Excess 5.8 H ABG Hemoglobin 13.3 L Oxyhemoglobin 90.6 L Sodium Potassium Chloride 97.2 L Carbon Dioxide BUN 61 H Creatinine 1.8 H Glucose POC Glucose Uric Acid Calcium Phosphorus Magnesium Iron TIBC AST ALT Total Creatine Kinase CK-MB (CK-2) 5.2 H Troponin T 0.067 H D NT-Pro-B Natriuret Pep Total Protein Albumin Triglycerides HDL Cholesterol Folate Urine WBC (Auto) Urine Creatinine Urine Total Protein Vancomycin Trough 05/02/19 05/03/19 05/03/19 20:39 04:35 05:05 WBC 11.8 H RBC Hgb Hct MCV MCH 27 L MCHC 31 L RDW 17.2 H Plt Count Lymph % (Auto) [place] % (Auto) Eos % (Auto) Lymph # [place] # Eos # Seg Neutrophils % Seg Neuts % (Manual) Lymphocytes % (Manual) Monocytes % (Manual) Eosinophils % (Manual) Nucleated RBC % Seg Neutrophils # Seg Neutrophils # Man Lymphocytes # (Manual) Monocytes # (Manual) Eosinophils # (Manual) PT INR APTT Fibrinogen POC ABG pH ABG pH POC ABG pCO2 53.6 H 54.0 H POC ABG pO2 55 L 63 L ABG pO2 ABG HCO3 ABG O2 Saturation ABG Base Excess ABG Hemoglobin Oxyhemoglobin Sodium Potassium Chloride Carbon Dioxide BUN Creatinine Glucose POC Glucose Uric Acid Calcium Phosphorus Magnesium Iron TIBC AST ALT Total Creatine Kinase CK-MB (CK-2) Troponin T NT-Pro-B Natriuret Pep Total Protein Albumin Triglycerides HDL Cholesterol Folate Urine WBC (Auto) Urine Creatinine Urine Total Protein Vancomycin Trough 05/03/19 05/03/19 05/03/19 05:05 10:55 16:48 WBC RBC Hgb Hct MCV MCH MCHC RDW Plt Count Lymph % (Auto) [place] % (Auto) Eos % (Auto) Lymph # [place] # Eos # Seg Neutrophils % Seg Neuts % (Manual) Lymphocytes % (Manual) Monocytes % (Manual) Eosinophils % (Manual) Nucleated RBC % Seg Neutrophils # Seg Neutrophils # Man Lymphocytes # (Manual) Monocytes # (Manual) Eosinophils # (Manual) PT INR APTT Fibrinogen POC ABG pH 7.604 H ABG pH POC ABG pCO2 POC ABG pO2 58 L ABG pO2 ABG HCO3 ABG O2 Saturation ABG Base Excess ABG Hemoglobin Oxyhemoglobin Sodium Potassium Chloride Carbon Dioxide BUN 52 H Creatinine 1.9 H Glucose 103 H POC Glucose Uric Acid Calcium Phosphorus Magnesium Iron TIBC AST ALT Total Creatine Kinase CK-MB (CK-2) Troponin T NT-Pro-B Natriuret Pep Total Protein Albumin Triglycerides HDL Cholesterol Folate Urine WBC (Auto) 33.0 H Urine Creatinine Urine Total Protein Vancomycin Trough 05/04/19 05/04/19 05/04/19 04:49 06:50 06:50 WBC 16.0 H RBC Hgb Hct MCV MCH 27 L MCHC 31 L RDW 17.8 H Plt Count Lymph % (Auto) [place] % (Auto) Eos % (Auto) Lymph # [place] # Eos # Seg Neutrophils % Seg Neuts % (Manual) Lymphocytes % (Manual) Monocytes % (Manual) Eosinophils % (Manual) Nucleated RBC % Seg Neutrophils # Seg Neutrophils # Man Lymphocytes # (Manual) Monocytes # (Manual) Eosinophils # (Manual) PT INR APTT Fibrinogen POC ABG pH 7.273 L ABG pH POC ABG pCO2 POC ABG pO2 ABG pO2 ABG HCO3 ABG O2 Saturation ABG Base Excess ABG Hemoglobin Oxyhemoglobin Sodium 148 H Potassium 5.5 H Chloride Carbon Dioxide BUN 53 H Creatinine 3.3 H D Glucose 106 H POC Glucose Uric Acid Calcium 8.3 L Phosphorus Magnesium Iron TIBC AST ALT Total Creatine Kinase CK-MB (CK-2) Troponin T NT-Pro-B Natriuret Pep Total Protein Albumin Triglycerides HDL Cholesterol Folate Urine WBC (Auto) Urine Creatinine Urine Total Protein Vancomycin Trough 05/05/19 05/05/19 05/05/19 00:05 04:30 05:00 WBC RBC Hgb Hct MCV MCH MCHC RDW Plt Count Lymph % (Auto) [place] % (Auto) Eos % (Auto) Lymph # [place] # Eos # Seg Neutrophils % Seg Neuts % (Manual) Lymphocytes % (Manual) Monocytes % (Manual) Eosinophils % (Manual) Nucleated RBC % Seg Neutrophils # Seg Neutrophils # Man Lymphocytes # (Manual) Monocytes # (Manual) Eosinophils # (Manual) PT INR APTT Fibrinogen POC ABG pH 7.225 L ABG pH POC ABG pCO2 > 70 H POC ABG pO2 ABG pO2 ABG HCO3 ABG O2 Saturation ABG Base Excess ABG Hemoglobin Oxyhemoglobin Sodium 151 H Potassium 5.1 H Chloride Carbon Dioxide BUN 64 H Creatinine 3.5 H Glucose 117 H POC Glucose 141 H Uric Acid Calcium 7.5 L Phosphorus Magnesium Iron TIBC AST 93 H ALT 65 H Total Creatine Kinase CK-MB (CK-2) Troponin T NT-Pro-B Natriuret Pep Total Protein Albumin 2.9 L Triglycerides HDL Cholesterol Folate Urine WBC (Auto) Urine Creatinine Urine Total Protein Vancomycin Trough 05/05/19 05/05/19 05/05/19 05:00 12:02 17:46 WBC 12.0 H RBC Hgb 11.3 L Hct MCV MCH 27 L MCHC 30 L RDW 18.4 H Plt Count Lymph % (Auto) 7.9 L [place] % (Auto) 10.2 H Eos % (Auto) Lymph # 1.0 L [place] # 1.2 H Eos # Seg Neutrophils % 80.8 H Seg Neuts % (Manual) Lymphocytes % (Manual) Monocytes % (Manual) Eosinophils % (Manual) Nucleated RBC % Seg Neutrophils # 9.7 H Seg Neutrophils # Man Lymphocytes # (Manual) Monocytes # (Manual) Eosinophils # (Manual) PT INR APTT Fibrinogen POC ABG pH ABG pH POC ABG pCO2 POC ABG pO2 ABG pO2 ABG HCO3 ABG O2 Saturation ABG Base Excess ABG Hemoglobin Oxyhemoglobin Sodium Potassium Chloride Carbon Dioxide BUN Creatinine Glucose POC Glucose 125 H 112 H Uric Acid Calcium Phosphorus Magnesium Iron TIBC AST ALT Total Creatine Kinase CK-MB (CK-2) Troponin T NT-Pro-B Natriuret Pep Total Protein Albumin Triglycerides HDL Cholesterol Folate Urine WBC (Auto) Urine Creatinine Urine Total Protein Vancomycin Trough 05/05/19 05/06/19 05/06/19 23:42 03:58 04:45 WBC 11.4 H RBC Hgb 10.7 L Hct 34.2 L MCV MCH 27 L MCHC 31 L RDW 16.9 H Plt Count Lymph % (Auto) [place] % (Auto) Eos % (Auto) Lymph # [place] # Eos # Seg Neutrophils % Seg Neuts % (Manual) Lymphocytes % (Manual) Monocytes % (Manual) Eosinophils % (Manual) Nucleated RBC % Seg Neutrophils # Seg Neutrophils # Man Lymphocytes # (Manual) Monocytes # (Manual) Eosinophils # (Manual) PT INR APTT Fibrinogen POC ABG pH ABG pH POC ABG pCO2 62.4 H POC ABG pO2 111 H ABG pO2 ABG HCO3 ABG O2 Saturation ABG Base Excess ABG Hemoglobin Oxyhemoglobin Sodium Potassium Chloride Carbon Dioxide BUN Creatinine Glucose POC Glucose 128 H Uric Acid Calcium Phosphorus Magnesium Iron TIBC AST ALT Total Creatine Kinase CK-MB (CK-2) Troponin T NT-Pro-B Natriuret Pep Total Protein Albumin Triglycerides HDL Cholesterol Folate Urine WBC (Auto) Urine Creatinine Urine Total Protein Vancomycin Trough 05/06/19 05/06/19 05/06/19 04:45 05:33 12:30 WBC RBC Hgb Hct MCV MCH MCHC RDW Plt Count Lymph % (Auto) [place] % (Auto) Eos % (Auto) Lymph # [place] # Eos # Seg Neutrophils % Seg Neuts % (Manual) Lymphocytes % (Manual) Monocytes % (Manual) Eosinophils % (Manual) Nucleated RBC % Seg Neutrophils # Seg Neutrophils # Man Lymphocytes # (Manual) Monocytes # (Manual) Eosinophils # (Manual) PT INR APTT Fibrinogen POC ABG pH ABG pH POC ABG pCO2 POC ABG pO2 ABG pO2 ABG HCO3 ABG O2 Saturation ABG Base Excess ABG Hemoglobin Oxyhemoglobin Sodium 149 H Potassium Chloride Carbon Dioxide 31 H BUN 67 H Creatinine 3.2 H Glucose 125 H POC Glucose 117 H 116 H Uric Acid Calcium 7.5 L Phosphorus Magnesium Iron TIBC AST ALT Total Creatine Kinase CK-MB (CK-2) Troponin T NT-Pro-B Natriuret Pep Total Protein Albumin Triglycerides HDL Cholesterol Folate Urine WBC (Auto) Urine Creatinine Urine Total Protein Vancomycin Trough 05/06/19 05/06/19 05/07/19 18:34 23:16 05:22 WBC RBC Hgb Hct MCV MCH MCHC RDW Plt Count Lymph % (Auto) [place] % (Auto) Eos % (Auto) Lymph # [place] # Eos # Seg Neutrophils % Seg Neuts % (Manual) Lymphocytes % (Manual) Monocytes % (Manual) Eosinophils % (Manual) Nucleated RBC % Seg Neutrophils # Seg Neutrophils # Man Lymphocytes # (Manual) Monocytes # (Manual) Eosinophils # (Manual) PT INR APTT Fibrinogen POC ABG pH ABG pH POC ABG pCO2 POC ABG pO2 ABG pO2 ABG HCO3 ABG O2 Saturation ABG Base Excess ABG Hemoglobin Oxyhemoglobin Sodium Potassium Chloride Carbon Dioxide BUN Creatinine Glucose POC Glucose 128 H 143 H 166 H Uric Acid Calcium Phosphorus Magnesium Iron TIBC AST ALT Total Creatine Kinase CK-MB (CK-2) Troponin T NT-Pro-B Natriuret Pep Total Protein Albumin Triglycerides HDL Cholesterol Folate Urine WBC (Auto) Urine Creatinine Urine Total Protein Vancomycin Trough 05/07/19 05/07/19 05/07/19 06:33 07:03 09:35 WBC RBC Hgb Hct MCV MCH MCHC RDW Plt Count Lymph % (Auto) [place] % (Auto) Eos % (Auto) Lymph # [place] # Eos # Seg Neutrophils % Seg Neuts % (Manual) Lymphocytes % (Manual) Monocytes % (Manual) Eosinophils % (Manual) Nucleated RBC % Seg Neutrophils # Seg Neutrophils # Man Lymphocytes # (Manual) Monocytes # (Manual) Eosinophils # (Manual) PT INR APTT Fibrinogen POC ABG pH 7.263 L 7.288 L ABG pH POC ABG pCO2 POC ABG pO2 51 L 56 L ABG pO2 ABG HCO3 ABG O2 Saturation ABG Base Excess ABG Hemoglobin Oxyhemoglobin Sodium Potassium Chloride Carbon Dioxide BUN 76 H Creatinine 3.2 H Glucose 147 H POC Glucose Uric Acid Calcium 7.9 L Phosphorus Magnesium Iron TIBC AST ALT Total Creatine Kinase CK-MB (CK-2) Troponin T NT-Pro-B Natriuret Pep Total Protein Albumin Triglycerides HDL Cholesterol Folate Urine WBC (Auto) Urine Creatinine Urine Total Protein Vancomycin Trough 05/07/19 05/07/19 05/07/19 09:35 12:17 13:45 WBC 13.4 H RBC Hgb 11.6 L Hct MCV MCH 27 L MCHC 31 L RDW 17.5 H Plt Count Lymph % (Auto) [place] % (Auto) Eos % (Auto) Lymph # [place] # Eos # Seg Neutrophils % Seg Neuts % (Manual) Lymphocytes % (Manual) Monocytes % (Manual) Eosinophils % (Manual) Nucleated RBC % Seg Neutrophils # Seg Neutrophils # Man Lymphocytes # (Manual) Monocytes # (Manual) Eosinophils # (Manual) PT INR APTT Fibrinogen POC ABG pH ABG pH POC ABG pCO2 POC ABG pO2 ABG pO2 ABG HCO3 ABG O2 Saturation ABG Base Excess ABG Hemoglobin Oxyhemoglobin Sodium Potassium Chloride Carbon Dioxide BUN Creatinine Glucose POC Glucose 130 H Uric Acid 18.0 H Calcium Phosphorus Magnesium Iron TIBC AST ALT Total Creatine Kinase CK-MB (CK-2) Troponin T NT-Pro-B Natriuret Pep Total Protein Albumin Triglycerides HDL Cholesterol Folate Urine WBC (Auto) Urine Creatinine Urine Total Protein Vancomycin Trough 05/07/19 05/07/19 05/08/19 17:39 22:40 05:06 WBC RBC Hgb Hct MCV MCH MCHC RDW Plt Count Lymph % (Auto) [place] % (Auto) Eos % (Auto) Lymph # [place] # Eos # Seg Neutrophils % Seg Neuts % (Manual) Lymphocytes % (Manual) Monocytes % (Manual) Eosinophils % (Manual) Nucleated RBC % Seg Neutrophils # Seg Neutrophils # Man Lymphocytes # (Manual) Monocytes # (Manual) Eosinophils # (Manual) PT INR APTT Fibrinogen POC ABG pH ABG pH POC ABG pCO2 POC ABG pO2 ABG pO2 ABG HCO3 ABG O2 Saturation ABG Base Excess ABG Hemoglobin Oxyhemoglobin Sodium Potassium Chloride Carbon Dioxide BUN Creatinine Glucose POC Glucose 116 H 148 H Uric Acid Calcium Phosphorus Magnesium Iron TIBC AST ALT Total Creatine Kinase CK-MB (CK-2) Troponin T NT-Pro-B Natriuret Pep Total Protein Albumin Triglycerides HDL Cholesterol Folate Urine WBC (Auto) Urine Creatinine 292.8 H Urine Total Protein 269 H Vancomycin Trough 05/08/19 05/08/19 05/08/19 05:32 11:28 13:48 WBC RBC Hgb Hct MCV MCH MCHC RDW Plt Count Lymph % (Auto) [place] % (Auto) Eos % (Auto) Lymph # [place] # Eos # Seg Neutrophils % Seg Neuts % (Manual) Lymphocytes % (Manual) Monocytes % (Manual) Eosinophils % (Manual) Nucleated RBC % Seg Neutrophils # Seg Neutrophils # Man Lymphocytes # (Manual) Monocytes # (Manual) Eosinophils # (Manual) PT INR APTT Fibrinogen POC ABG pH ABG pH POC ABG pCO2 45.4 H POC ABG pO2 64 L ABG pO2 ABG HCO3 ABG O2 Saturation ABG Base Excess ABG Hemoglobin Oxyhemoglobin Sodium Potassium Chloride Carbon Dioxide BUN 73 H Creatinine 2.7 H Glucose 127 H POC Glucose 107 H Uric Acid Calcium 7.6 L Phosphorus Magnesium Iron TIBC AST ALT Total Creatine Kinase CK-MB (CK-2) Troponin T NT-Pro-B Natriuret Pep Total Protein Albumin Triglycerides HDL Cholesterol Folate Urine WBC (Auto) Urine Creatinine Urine Total Protein Vancomycin Trough 05/08/19 05/09/19 05/09/19 17:48 04:50 04:53 WBC RBC 3.07 L Hgb 8.5 L D Hct 29.3 L D MCV 96 H MCH MCHC 29 L RDW 18.1 H Plt Count Lymph % (Auto) [place] % (Auto) Eos % (Auto) Lymph # [place] # Eos # Seg Neutrophils % Seg Neuts % (Manual) Lymphocytes % (Manual) Monocytes % (Manual) Eosinophils % (Manual) Nucleated RBC % Seg Neutrophils # Seg Neutrophils # Man Lymphocytes # (Manual) Monocytes # (Manual) Eosinophils # (Manual) PT INR APTT Fibrinogen POC ABG pH 7.316 L ABG pH POC ABG pCO2 66.0 H POC ABG pO2 69 L ABG pO2 ABG HCO3 ABG O2 Saturation ABG Base Excess ABG Hemoglobin Oxyhemoglobin Sodium Potassium Chloride Carbon Dioxide BUN Creatinine Glucose POC Glucose 155 H Uric Acid Calcium Phosphorus Magnesium Iron TIBC AST ALT Total Creatine Kinase CK-MB (CK-2) Troponin T NT-Pro-B Natriuret Pep Total Protein Albumin Triglycerides HDL Cholesterol Folate Urine WBC (Auto) Urine Creatinine Urine Total Protein Vancomycin Trough 05/09/19 05/09/19 05/09/19 05:46 07:24 12:10 WBC RBC Hgb Hct MCV MCH MCHC RDW Plt Count Lymph % (Auto) [place] % (Auto) Eos % (Auto) Lymph # [place] # Eos # Seg Neutrophils % Seg Neuts % (Manual) Lymphocytes % (Manual) Monocytes % (Manual) Eosinophils % (Manual) Nucleated RBC % Seg Neutrophils # Seg Neutrophils # Man Lymphocytes # (Manual) Monocytes # (Manual) Eosinophils # (Manual) PT INR APTT Fibrinogen POC ABG pH ABG pH POC ABG pCO2 POC ABG pO2 ABG pO2 ABG HCO3 ABG O2 Saturation ABG Base Excess ABG Hemoglobin Oxyhemoglobin Sodium Potassium Chloride Carbon Dioxide BUN 73 H Creatinine 2.4 H Glucose 153 H POC Glucose 123 H 148 H Uric Acid Calcium 8.2 L Phosphorus Magnesium Iron TIBC AST 45 H ALT Total Creatine Kinase CK-MB (CK-2) Troponin T NT-Pro-B Natriuret Pep Total Protein 6.0 L Albumin 1.9 L Triglycerides HDL Cholesterol Folate Urine WBC (Auto) Urine Creatinine Urine Total Protein Vancomycin Trough 05/09/19 05/09/19 05/10/19 18:23 23:26 04:52 WBC RBC Hgb Hct MCV MCH MCHC RDW Plt Count Lymph % (Auto) [place] % (Auto) Eos % (Auto) Lymph # [place] # Eos # Seg Neutrophils % Seg Neuts % (Manual) Lymphocytes % (Manual) Monocytes % (Manual) Eosinophils % (Manual) Nucleated RBC % Seg Neutrophils # Seg Neutrophils # Man Lymphocytes # (Manual) Monocytes # (Manual) Eosinophils # (Manual) PT INR APTT Fibrinogen POC ABG pH 7.305 L ABG pH POC ABG pCO2 62.6 H POC ABG pO2 ABG pO2 ABG HCO3 ABG O2 Saturation ABG Base Excess ABG Hemoglobin Oxyhemoglobin Sodium Potassium Chloride Carbon Dioxide BUN Creatinine Glucose POC Glucose 147 H 121 H Uric Acid Calcium Phosphorus Magnesium Iron TIBC AST ALT Total Creatine Kinase CK-MB (CK-2) Troponin T NT-Pro-B Natriuret Pep Total Protein Albumin Triglycerides HDL Cholesterol Folate Urine WBC (Auto) Urine Creatinine Urine Total Protein Vancomycin Trough 05/10/19 05/10/19 05/10/19 05:00 05:00 05:50 WBC RBC Hgb 10.3 L Hct 33.7 L MCV MCH 27 L MCHC 31 L RDW 17.0 H Plt Count Lymph % (Auto) [place] % (Auto) Eos % (Auto) Lymph # [place] # Eos # Seg Neutrophils % Seg Neuts % (Manual) Lymphocytes % (Manual) Monocytes % (Manual) Eosinophils % (Manual) Nucleated RBC % Seg Neutrophils # Seg Neutrophils # Man Lymphocytes # (Manual) Monocytes # (Manual) Eosinophils # (Manual) PT INR APTT Fibrinogen POC ABG pH ABG pH POC ABG pCO2 POC ABG pO2 ABG pO2 ABG HCO3 ABG O2 Saturation ABG Base Excess ABG Hemoglobin Oxyhemoglobin Sodium 147 H Potassium Chloride Carbon Dioxide BUN 70 H Creatinine 2.6 H Glucose 155 H POC Glucose 158 H Uric Acid Calcium 8.2 L Phosphorus Magnesium Iron TIBC AST ALT Total Creatine Kinase CK-MB (CK-2) Troponin T NT-Pro-B Natriuret Pep Total Protein 6.1 L Albumin 2.5 L Triglycerides HDL Cholesterol Folate Urine WBC (Auto) Urine Creatinine Urine Total Protein Vancomycin Trough 05/10/19 05/11/19 05/11/19 13:14 07:26 11:40 WBC RBC Hgb Hct MCV MCH MCHC RDW Plt Count Lymph % (Auto) [place] % (Auto) Eos % (Auto) Lymph # [place] # Eos # Seg Neutrophils % Seg Neuts % (Manual) Lymphocytes % (Manual) Monocytes % (Manual) Eosinophils % (Manual) Nucleated RBC % Seg Neutrophils # Seg Neutrophils # Man Lymphocytes # (Manual) Monocytes # (Manual) Eosinophils # (Manual) PT INR APTT Fibrinogen POC ABG pH ABG pH POC ABG pCO2 48.0 H POC ABG pO2 58 L ABG pO2 ABG HCO3 ABG O2 Saturation ABG Base Excess ABG Hemoglobin Oxyhemoglobin Sodium 147 H Potassium Chloride 107.2 H Carbon Dioxide BUN 67 H Creatinine 2.6 H Glucose 121 H POC Glucose 159 H Uric Acid Calcium Phosphorus Magnesium Iron TIBC AST ALT Total Creatine Kinase CK-MB (CK-2) Troponin T NT-Pro-B Natriuret Pep Total Protein Albumin Triglycerides HDL Cholesterol Folate Urine WBC (Auto) Urine Creatinine Urine Total Protein Vancomycin Trough 05/11/19 05/11/19 05/12/19 18:13 23:46 04:40 WBC RBC Hgb Hct MCV MCH MCHC RDW Plt Count Lymph % (Auto) [place] % (Auto) Eos % (Auto) Lymph # [place] # Eos # Seg Neutrophils % Seg Neuts % (Manual) Lymphocytes % (Manual) Monocytes % (Manual) Eosinophils % (Manual) Nucleated RBC % Seg Neutrophils # Seg Neutrophils # Man Lymphocytes # (Manual) Monocytes # (Manual) Eosinophils # (Manual) PT INR APTT Fibrinogen POC ABG pH ABG pH 7.264 L POC ABG pCO2 POC ABG pO2 ABG pO2 66.8 L ABG HCO3 31.0 H ABG O2 Saturation 92.0 L ABG Base Excess ABG Hemoglobin 10.3 L Oxyhemoglobin 90.1 L Sodium Potassium Chloride Carbon Dioxide BUN Creatinine Glucose POC Glucose 120 H 121 H Uric Acid Calcium Phosphorus Magnesium Iron TIBC AST ALT Total Creatine Kinase CK-MB (CK-2) Troponin T NT-Pro-B Natriuret Pep Total Protein Albumin Triglycerides HDL Cholesterol Folate Urine WBC (Auto) Urine Creatinine Urine Total Protein Vancomycin Trough 05/12/19 05/12/19 05/12/19 04:45 04:45 11:14 WBC RBC Hgb 10.2 L Hct 32.4 L MCV MCH MCHC 31 L RDW 17.2 H Plt Count Lymph % (Auto) [place] % (Auto) Eos % (Auto) Lymph # [place] # Eos # Seg Neutrophils % Seg Neuts % (Manual) Lymphocytes % (Manual) Monocytes % (Manual) Eosinophils % (Manual) Nucleated RBC % Seg Neutrophils # Seg Neutrophils # Man Lymphocytes # (Manual) Monocytes # (Manual) Eosinophils # (Manual) PT INR APTT Fibrinogen POC ABG pH 7.284 L ABG pH POC ABG pCO2 67.8 H POC ABG pO2 ABG pO2 ABG HCO3 ABG O2 Saturation ABG Base Excess ABG Hemoglobin Oxyhemoglobin Sodium Potassium Chloride Carbon Dioxide BUN 63 H Creatinine 2.4 H Glucose 110 H POC Glucose Uric Acid Calcium Phosphorus Magnesium Iron TIBC AST ALT Total Creatine Kinase CK-MB (CK-2) Troponin T NT-Pro-B Natriuret Pep Total Protein Albumin Triglycerides HDL Cholesterol Folate Urine WBC (Auto) Urine Creatinine Urine Total Protein Vancomycin Trough 05/12/19 05/12/19 05/13/19 11:44 23:11 04:30 WBC RBC Hgb Hct MCV MCH MCHC RDW Plt Count Lymph % (Auto) [place] % (Auto) Eos % (Auto) Lymph # [place] # Eos # Seg Neutrophils % Seg Neuts % (Manual) Lymphocytes % (Manual) Monocytes % (Manual) Eosinophils % (Manual) Nucleated RBC % Seg Neutrophils # Seg Neutrophils # Man Lymphocytes # (Manual) Monocytes # (Manual) Eosinophils # (Manual) PT INR APTT Fibrinogen POC ABG pH ABG pH 7.288 L POC ABG pCO2 POC ABG pO2 ABG pO2 109.7 H ABG HCO3 30.9 H ABG O2 Saturation ABG Base Excess 3.2 H ABG Hemoglobin 9.6 L Oxyhemoglobin Sodium Potassium Chloride Carbon Dioxide BUN Creatinine Glucose POC Glucose 126 H 147 H Uric Acid Calcium Phosphorus Magnesium Iron TIBC AST ALT Total Creatine Kinase CK-MB (CK-2) Troponin T NT-Pro-B Natriuret Pep Total Protein Albumin Triglycerides HDL Cholesterol Folate Urine WBC (Auto) Urine Creatinine Urine Total Protein Vancomycin Trough 05/13/19 05/13/19 05/14/19 06:27 11:58 04:00 WBC RBC 3.16 L Hgb 9.3 L Hct 27.9 L MCV MCH MCHC RDW 17.1 H Plt Count Lymph % (Auto) [place] % (Auto) Eos % (Auto) Lymph # [place] # Eos # Seg Neutrophils % Seg Neuts % (Manual) Lymphocytes % (Manual) Monocytes % (Manual) Eosinophils % (Manual) Nucleated RBC % Seg Neutrophils # Seg Neutrophils # Man Lymphocytes # (Manual) Monocytes # (Manual) Eosinophils # (Manual) PT INR APTT Fibrinogen POC ABG pH ABG pH POC ABG pCO2 POC ABG pO2 ABG pO2 ABG HCO3 ABG O2 Saturation ABG Base Excess ABG Hemoglobin Oxyhemoglobin Sodium Potassium Chloride Carbon Dioxide BUN Creatinine Glucose POC Glucose 113 H 130 H Uric Acid Calcium Phosphorus Magnesium Iron TIBC AST ALT Total Creatine Kinase CK-MB (CK-2) Troponin T NT-Pro-B Natriuret Pep Total Protein Albumin Triglycerides HDL Cholesterol Folate Urine WBC (Auto) Urine Creatinine Urine Total Protein Vancomycin Trough 05/14/19 05/14/19 05/14/19 04:00 04:34 05:32 WBC RBC Hgb Hct MCV MCH MCHC RDW Plt Count Lymph % (Auto) [place] % (Auto) Eos % (Auto) Lymph # [place] # Eos # Seg Neutrophils % Seg Neuts % (Manual) Lymphocytes % (Manual) Monocytes % (Manual) Eosinophils % (Manual) Nucleated RBC % Seg Neutrophils # Seg Neutrophils # Man Lymphocytes # (Manual) Monocytes # (Manual) Eosinophils # (Manual) PT INR APTT Fibrinogen POC ABG pH 7.328 L ABG pH POC ABG pCO2 61.7 H POC ABG pO2 ABG pO2 ABG HCO3 ABG O2 Saturation ABG Base Excess ABG Hemoglobin Oxyhemoglobin Sodium 135 L D Potassium Chloride Carbon Dioxide BUN 57 H Creatinine 2.2 H Glucose 115 H POC Glucose 115 H Uric Acid Calcium 8.1 L Phosphorus Magnesium Iron TIBC AST ALT Total Creatine Kinase CK-MB (CK-2) Troponin T NT-Pro-B Natriuret Pep Total Protein Albumin Triglycerides HDL Cholesterol Folate Urine WBC (Auto) Urine Creatinine Urine Total Protein Vancomycin Trough 05/14/19 05/15/19 05/15/19 12:11 05:10 05:24 WBC RBC Hgb Hct MCV MCH MCHC RDW Plt Count Lymph % (Auto) [place] % (Auto) Eos % (Auto) Lymph # [place] # Eos # Seg Neutrophils % Seg Neuts % (Manual) Lymphocytes % (Manual) Monocytes % (Manual) Eosinophils % (Manual) Nucleated RBC % Seg Neutrophils # Seg Neutrophils # Man Lymphocytes # (Manual) Monocytes # (Manual) Eosinophils # (Manual) PT INR APTT Fibrinogen POC ABG pH ABG pH 7.342 L POC ABG pCO2 POC ABG pO2 ABG pO2 79.1 L ABG HCO3 28.2 H ABG O2 Saturation ABG Base Excess ABG Hemoglobin 7.0 L Oxyhemoglobin 94.4 L Sodium Potassium Chloride Carbon Dioxide BUN Creatinine Glucose POC Glucose 110 H 116 H Uric Acid Calcium Phosphorus Magnesium Iron TIBC AST ALT Total Creatine Kinase CK-MB (CK-2) Troponin T NT-Pro-B Natriuret Pep Total Protein Albumin Triglycerides HDL Cholesterol Folate Urine WBC (Auto) Urine Creatinine Urine Total Protein Vancomycin Trough 05/15/19 05/15/19 05/16/19 09:00 18:12 04:50 WBC RBC Hgb Hct MCV MCH MCHC RDW Plt Count Lymph % (Auto) [place] % (Auto) Eos % (Auto) Lymph # [place] # Eos # Seg Neutrophils % Seg Neuts % (Manual) Lymphocytes % (Manual) Monocytes % (Manual) Eosinophils % (Manual) Nucleated RBC % Seg Neutrophils # Seg Neutrophils # Man Lymphocytes # (Manual) Monocytes # (Manual) Eosinophils # (Manual) PT INR APTT Fibrinogen POC ABG pH ABG pH 7.250 L POC ABG pCO2 POC ABG pO2 ABG pO2 76.4 L ABG HCO3 ABG O2 Saturation 94.6 L ABG Base Excess -3.1 L ABG Hemoglobin 9.7 L Oxyhemoglobin 92.4 L Sodium Potassium Chloride Carbon Dioxide BUN Creatinine Glucose POC Glucose 110 H Uric Acid Calcium Phosphorus Magnesium Iron TIBC AST ALT Total Creatine Kinase CK-MB (CK-2) Troponin T NT-Pro-B Natriuret Pep Total Protein Albumin Triglycerides HDL Cholesterol Folate Urine WBC (Auto) Urine Creatinine Urine Total Protein Vancomycin Trough 20.5 H 05/16/19 05/16/19 05/17/19 05:50 05:50 04:20 WBC RBC 3.36 L 3.44 L Hgb 9.4 L 9.3 L Hct 29.1 L 29.7 L MCV MCH 27 L MCHC 31 L RDW 17.6 H 17.6 H Plt Count Lymph % (Auto) [place] % (Auto) Eos % (Auto) Lymph # [place] # Eos # Seg Neutrophils % Seg Neuts % (Manual) 77.0 H Lymphocytes % (Manual) 5.0 L Monocytes % (Manual) Eosinophils % (Manual) 10.0 H Nucleated RBC % Seg Neutrophils # Seg Neutrophils # Man Lymphocytes # (Manual) 0.5 L Monocytes # (Manual) Eosinophils # (Manual) 0.9 H PT INR APTT Fibrinogen POC ABG pH ABG pH POC ABG pCO2 POC ABG pO2 ABG pO2 ABG HCO3 ABG O2 Saturation ABG Base Excess ABG Hemoglobin Oxyhemoglobin Sodium Potassium Chloride Carbon Dioxide BUN 83 H Creatinine 4.4 H D Glucose 118 H POC Glucose Uric Acid Calcium Phosphorus Magnesium Iron TIBC AST ALT Total Creatine Kinase CK-MB (CK-2) Troponin T NT-Pro-B Natriuret Pep Total Protein Albumin Triglycerides HDL Cholesterol Folate Urine WBC (Auto) Urine Creatinine Urine Total Protein Vancomycin Trough 05/17/19 05/17/19 05/18/19 04:30 Unknown 01:50 WBC RBC 3.49 L Hgb 9.4 L Hct 30.0 L MCV MCH 27 L MCHC 31 L RDW 17.8 H Plt Count Lymph % (Auto) 7.9 L [place] % (Auto) 15.4 H Eos % (Auto) 6.3 H Lymph # 0.7 L [place] # 1.4 H Eos # 0.6 H Seg Neutrophils % 70.2 H Seg Neuts % (Manual) Lymphocytes % (Manual) Monocytes % (Manual) Eosinophils % (Manual) Nucleated RBC % Seg Neutrophils # Seg Neutrophils # Man Lymphocytes # (Manual) Monocytes # (Manual) Eosinophils # (Manual) PT INR APTT Fibrinogen POC ABG pH ABG pH 7.272 L POC ABG pCO2 POC ABG pO2 ABG pO2 75.7 L ABG HCO3 ABG O2 Saturation 93.8 L ABG Base Excess -3.0 L ABG Hemoglobin 7.8 L Oxyhemoglobin 91.6 L Sodium Potassium 5.2 H Chloride Carbon Dioxide BUN 96 H Creatinine 5.7 H Glucose 112 H POC Glucose Uric Acid Calcium Phosphorus Magnesium Iron TIBC AST ALT Total Creatine Kinase CK-MB (CK-2) Troponin T NT-Pro-B Natriuret Pep Total Protein Albumin Triglycerides 173 H HDL Cholesterol Folate Urine WBC (Auto) Urine Creatinine Urine Total Protein Vancomycin Trough 05/18/19 05/18/19 05/18/19 01:50 04:41 05:24 WBC RBC Hgb Hct MCV MCH MCHC RDW Plt Count Lymph % (Auto) [place] % (Auto) Eos % (Auto) Lymph # [place] # Eos # Seg Neutrophils % Seg Neuts % (Manual) Lymphocytes % (Manual) Monocytes % (Manual) Eosinophils % (Manual) Nucleated RBC % Seg Neutrophils # Seg Neutrophils # Man Lymphocytes # (Manual) Monocytes # (Manual) Eosinophils # (Manual) PT INR APTT Fibrinogen POC ABG pH 7.260 L ABG pH POC ABG pCO2 54.9 H POC ABG pO2 ABG pO2 ABG HCO3 ABG O2 Saturation ABG Base Excess ABG Hemoglobin Oxyhemoglobin Sodium Potassium 5.6 H Chloride Carbon Dioxide BUN 104 H Creatinine 6.6 H Glucose 107 H POC Glucose 106 H Uric Acid Calcium Phosphorus Magnesium Iron TIBC AST ALT Total Creatine Kinase CK-MB (CK-2) Troponin T NT-Pro-B Natriuret Pep Total Protein Albumin Triglycerides HDL Cholesterol Folate Urine WBC (Auto) Urine Creatinine Urine Total Protein Vancomycin Trough 05/18/19 05/18/19 05/19/19 11:34 23:26 04:06 WBC RBC 3.22 L Hgb 8.8 L Hct 27.3 L MCV MCH 27 L MCHC RDW 17.5 H Plt Count Lymph % (Auto) [place] % (Auto) Eos % (Auto) Lymph # [place] # Eos # Seg Neutrophils % Seg Neuts % (Manual) 74.0 H Lymphocytes % (Manual) 4.0 L Monocytes % (Manual) 11.0 H Eosinophils % (Manual) 7.0 H Nucleated RBC % 1.0 H Seg Neutrophils # Seg Neutrophils # Man Lymphocytes # (Manual) 0.3 L Monocytes # (Manual) 0.9 H Eosinophils # (Manual) 0.6 H PT INR APTT Fibrinogen POC ABG pH ABG pH POC ABG pCO2 POC ABG pO2 ABG pO2 ABG HCO3 ABG O2 Saturation ABG Base Excess ABG Hemoglobin Oxyhemoglobin Sodium Potassium Chloride Carbon Dioxide BUN Creatinine Glucose POC Glucose 152 H 112 H Uric Acid Calcium Phosphorus Magnesium Iron TIBC AST ALT Total Creatine Kinase CK-MB (CK-2) Troponin T NT-Pro-B Natriuret Pep Total Protein Albumin Triglycerides HDL Cholesterol Folate Urine WBC (Auto) Urine Creatinine Urine Total Protein Vancomycin Trough 05/19/19 05/19/19 05/20/19 04:06 06:00 04:00 WBC RBC 3.40 L Hgb 9.2 L Hct 28.6 L MCV MCH 27 L MCHC RDW 17.6 H Plt Count Lymph % (Auto) [place] % (Auto) Eos % (Auto) Lymph # [place] # Eos # Seg Neutrophils % Seg Neuts % (Manual) Lymphocytes % (Manual) 11.0 L Monocytes % (Manual) Eosinophils % (Manual) 14.0 H Nucleated RBC % Seg Neutrophils # Seg Neutrophils # Man Lymphocytes # (Manual) 1.1 L Monocytes # (Manual) Eosinophils # (Manual) 1.4 H PT INR APTT Fibrinogen POC ABG pH ABG pH 7.315 L POC ABG pCO2 POC ABG pO2 ABG pO2 ABG HCO3 ABG O2 Saturation ABG Base Excess ABG Hemoglobin 6.7 L Oxyhemoglobin 94.1 L Sodium Potassium 5.2 H Chloride Carbon Dioxide 21 L BUN 110 H Creatinine 7.2 H Glucose POC Glucose Uric Acid Calcium 8.3 L Phosphorus Magnesium Iron TIBC AST ALT Total Creatine Kinase CK-MB (CK-2) Troponin T NT-Pro-B Natriuret Pep Total Protein Albumin Triglycerides HDL Cholesterol Folate Urine WBC (Auto) Urine Creatinine Urine Total Protein Vancomycin Trough 05/20/19 05/20/19 05/20/19 04:00 05:48 12:00 WBC RBC Hgb Hct MCV MCH MCHC RDW Plt Count Lymph % (Auto) [place] % (Auto) Eos % (Auto) Lymph # [place] # Eos # Seg Neutrophils % Seg Neuts % (Manual) Lymphocytes % (Manual) Monocytes % (Manual) Eosinophils % (Manual) Nucleated RBC % Seg Neutrophils # Seg Neutrophils # Man Lymphocytes # (Manual) Monocytes # (Manual) Eosinophils # (Manual) PT INR APTT Fibrinogen POC ABG pH ABG pH 7.281 L POC ABG pCO2 POC ABG pO2 ABG pO2 78.7 L ABG HCO3 ABG O2 Saturation 94.5 L ABG Base Excess -3.0 L ABG Hemoglobin 9.9 L Oxyhemoglobin 92.5 L Sodium 136 L Potassium 5.7 H Chloride 96.3 L Carbon Dioxide BUN 125 H Creatinine 8.3 H Glucose 106 H POC Glucose Uric Acid Calcium Phosphorus Magnesium Iron TIBC AST ALT Total Creatine Kinase CK-MB (CK-2) Troponin T NT-Pro-B Natriuret Pep Total Protein Albumin Triglycerides HDL Cholesterol Folate Urine WBC (Auto) 26.0 H Urine Creatinine Urine Total Protein Vancomycin Trough 05/21/19 05/21/19 05/21/19 04:33 05:20 Unknown WBC RBC 3.38 L Hgb 9.1 L Hct 28.5 L MCV MCH 27 L MCHC RDW 17.4 H Plt Count Lymph % (Auto) [place] % (Auto) Eos % (Auto) Lymph # [place] # Eos # Seg Neutrophils % Seg Neuts % (Manual) 71.0 H Lymphocytes % (Manual) 1.0 L Monocytes % (Manual) 11.0 H Eosinophils % (Manual) 6.0 H Nucleated RBC % Seg Neutrophils # Seg Neutrophils # Man Lymphocytes # (Manual) 0.1 L Monocytes # (Manual) 1.0 H Eosinophils # (Manual) 0.6 H PT INR APTT Fibrinogen POC ABG pH 7.315 L ABG pH POC ABG pCO2 57.8 H POC ABG pO2 68 L ABG pO2 ABG HCO3 ABG O2 Saturation ABG Base Excess ABG Hemoglobin Oxyhemoglobin Sodium Potassium Chloride 96.3 L Carbon Dioxide BUN 102 H Creatinine 7.0 H Glucose 103 H POC Glucose Uric Acid Calcium Phosphorus Magnesium Iron TIBC AST ALT Total Creatine Kinase CK-MB (CK-2) Troponin T NT-Pro-B Natriuret Pep Total Protein Albumin Triglycerides HDL Cholesterol Folate Urine WBC (Auto) Urine Creatinine Urine Total Protein Vancomycin Trough 05/22/19 05/22/19 05/22/19 03:54 06:25 06:25 WBC RBC 3.22 L Hgb 8.6 L Hct 27.0 L MCV MCH 27 L MCHC RDW 17.5 H Plt Count Lymph % (Auto) [place] % (Auto) 16.2 H Eos % (Auto) 10.8 H Lymph # [place] # 1.3 H Eos # 0.9 H Seg Neutrophils % Seg Neuts % (Manual) Lymphocytes % (Manual) 10.0 L Monocytes % (Manual) 13.0 H Eosinophils % (Manual) 8.0 H Nucleated RBC % Seg Neutrophils # Seg Neutrophils # Man Lymphocytes # (Manual) 0.9 L Monocytes # (Manual) 1.1 H Eosinophils # (Manual) 0.7 H PT INR APTT Fibrinogen POC ABG pH 7.313 L ABG pH POC ABG pCO2 55.0 H POC ABG pO2 ABG pO2 ABG HCO3 ABG O2 Saturation ABG Base Excess ABG Hemoglobin Oxyhemoglobin Sodium 135 L Potassium Chloride 94.3 L Carbon Dioxide BUN 117 H Creatinine 7.8 H Glucose POC Glucose Uric Acid Calcium 8.2 L Phosphorus Magnesium Iron TIBC AST ALT Total Creatine Kinase CK-MB (CK-2) Troponin T NT-Pro-B Natriuret Pep Total Protein Albumin Triglycerides HDL Cholesterol Folate Urine WBC (Auto) Urine Creatinine Urine Total Protein Vancomycin Trough 05/23/19 05/24/19 05/24/19 05:21 05:00 05:00 WBC RBC 3.18 L Hgb 8.5 L Hct 26.7 L MCV MCH 27 L MCHC RDW 17.9 H Plt Count Lymph % (Auto) [place] % (Auto) Eos % (Auto) Lymph # [place] # Eos # Seg Neutrophils % Seg Neuts % (Manual) Lymphocytes % (Manual) Monocytes % (Manual) Eosinophils % (Manual) Nucleated RBC % Seg Neutrophils # Seg Neutrophils # Man Lymphocytes # (Manual) Monocytes # (Manual) Eosinophils # (Manual) PT INR APTT Fibrinogen POC ABG pH ABG pH POC ABG pCO2 49.7 H POC ABG pO2 73 L ABG pO2 ABG HCO3 ABG O2 Saturation ABG Base Excess ABG Hemoglobin Oxyhemoglobin Sodium Potassium Chloride 95.7 L Carbon Dioxide BUN 97 H Creatinine 6.5 H Glucose POC Glucose Uric Acid Calcium 8.0 L Phosphorus Magnesium Iron TIBC AST ALT Total Creatine Kinase CK-MB (CK-2) Troponin T NT-Pro-B Natriuret Pep Total Protein Albumin Triglycerides HDL Cholesterol Folate Urine WBC (Auto) Urine Creatinine Urine Total Protein Vancomycin Trough 05/24/19 05/25/19 05/25/19 06:17 04:22 15:45 WBC RBC 2.98 L Hgb 8.1 L Hct 24.9 L MCV MCH 27 L MCHC RDW 17.8 H Plt Count Lymph % (Auto) [place] % (Auto) Eos % (Auto) Lymph # [place] # Eos # Seg Neutrophils % Seg Neuts % (Manual) Lymphocytes % (Manual) Monocytes % (Manual) Eosinophils % (Manual) Nucleated RBC % Seg Neutrophils # Seg Neutrophils # Man Lymphocytes # (Manual) Monocytes # (Manual) Eosinophils # (Manual) PT INR APTT Fibrinogen POC ABG pH 7.330 L 7.313 L ABG pH POC ABG pCO2 52.5 H 51.1 H POC ABG pO2 77 L ABG pO2 ABG HCO3 ABG O2 Saturation ABG Base Excess ABG Hemoglobin Oxyhemoglobin Sodium Potassium Chloride Carbon Dioxide BUN Creatinine Glucose POC Glucose Uric Acid Calcium Phosphorus Magnesium Iron TIBC AST ALT Total Creatine Kinase CK-MB (CK-2) Troponin T NT-Pro-B Natriuret Pep Total Protein Albumin Triglycerides HDL Cholesterol Folate Urine WBC (Auto) Urine Creatinine Urine Total Protein Vancomycin Trough 05/25/19 05/26/19 05/26/19 15:45 04:13 05:00 WBC RBC 3.10 L Hgb 8.4 L Hct 26.0 L MCV MCH 27 L MCHC RDW 17.4 H Plt Count Lymph % (Auto) [place] % (Auto) Eos % (Auto) Lymph # [place] # Eos # Seg Neutrophils % Seg Neuts % (Manual) Lymphocytes % (Manual) Monocytes % (Manual) Eosinophils % (Manual) Nucleated RBC % Seg Neutrophils # Seg Neutrophils # Man Lymphocytes # (Manual) Monocytes # (Manual) Eosinophils # (Manual) PT INR APTT Fibrinogen POC ABG pH 7.295 L ABG pH POC ABG pCO2 56.5 H POC ABG pO2 63 L ABG pO2 ABG HCO3 ABG O2 Saturation ABG Base Excess ABG Hemoglobin Oxyhemoglobin Sodium 136 L Potassium Chloride 96.8 L Carbon Dioxide BUN 83 H Creatinine 5.9 H Glucose POC Glucose Uric Acid Calcium 7.6 L Phosphorus Magnesium Iron TIBC AST ALT Total Creatine Kinase CK-MB (CK-2) Troponin T NT-Pro-B Natriuret Pep Total Protein Albumin Triglycerides HDL Cholesterol Folate Urine WBC (Auto) Urine Creatinine Urine Total Protein Vancomycin Trough 05/26/19 05/27/19 05/28/19 05:00 04:48 04:47 WBC RBC Hgb Hct MCV MCH MCHC RDW Plt Count Lymph % (Auto) [place] % (Auto) Eos % (Auto) Lymph # [place] # Eos # Seg Neutrophils % Seg Neuts % (Manual) Lymphocytes % (Manual) Monocytes % (Manual) Eosinophils % (Manual) Nucleated RBC % Seg Neutrophils # Seg Neutrophils # Man Lymphocytes # (Manual) Monocytes # (Manual) Eosinophils # (Manual) PT INR APTT Fibrinogen POC ABG pH 7.323 L ABG pH 7.284 L POC ABG pCO2 56.2 H POC ABG pO2 ABG pO2 71.6 L ABG HCO3 ABG O2 Saturation 92.0 L ABG Base Excess ABG Hemoglobin 7.7 L Oxyhemoglobin 89.9 L Sodium 136 L Potassium Chloride 95.3 L Carbon Dioxide BUN 96 H Creatinine 6.5 H Glucose 108 H POC Glucose Uric Acid Calcium 7.6 L Phosphorus Magnesium Iron TIBC AST ALT Total Creatine Kinase CK-MB (CK-2) Troponin T NT-Pro-B Natriuret Pep Total Protein Albumin Triglycerides HDL Cholesterol Folate Urine WBC (Auto) Urine Creatinine Urine Total Protein Vancomycin Trough 05/28/19 05/29/19 05/29/19 12:30 12:47 23:44 WBC RBC Hgb Hct MCV MCH MCHC RDW Plt Count Lymph % (Auto) [place] % (Auto) Eos % (Auto) Lymph # [place] # Eos # Seg Neutrophils % Seg Neuts % (Manual) Lymphocytes % (Manual) Monocytes % (Manual) Eosinophils % (Manual) Nucleated RBC % Seg Neutrophils # Seg Neutrophils # Man Lymphocytes # (Manual) Monocytes # (Manual) Eosinophils # (Manual) PT INR APTT Fibrinogen POC ABG pH ABG pH POC ABG pCO2 POC ABG pO2 ABG pO2 ABG HCO3 ABG O2 Saturation ABG Base Excess ABG Hemoglobin Oxyhemoglobin Sodium 135 L Potassium Chloride 95.3 L Carbon Dioxide BUN 82 H Creatinine 6.0 H Glucose POC Glucose 136 H 159 H Uric Acid Calcium 7.5 L Phosphorus Magnesium Iron TIBC AST ALT Total Creatine Kinase CK-MB (CK-2) Troponin T NT-Pro-B Natriuret Pep Total Protein Albumin Triglycerides HDL Cholesterol Folate Urine WBC (Auto) Urine Creatinine Urine Total Protein Vancomycin Trough 05/30/19 05/30/19 05/30/19 04:30 05:38 12:00 WBC RBC 3.01 L Hgb 8.2 L Hct 25.3 L MCV MCH 27 L MCHC RDW 17.5 H Plt Count Lymph % (Auto) [place] % (Auto) Eos % (Auto) Lymph # [place] # Eos # Seg Neutrophils % Seg Neuts % (Manual) 80.0 H Lymphocytes % (Manual) 10.0 L Monocytes % (Manual) Eosinophils % (Manual) Nucleated RBC % Seg Neutrophils # Seg Neutrophils # Man 8.0 H Lymphocytes # (Manual) 1.0 L Monocytes # (Manual) Eosinophils # (Manual) PT INR APTT Fibrinogen POC ABG pH ABG pH POC ABG pCO2 POC ABG pO2 73 L ABG pO2 ABG HCO3 ABG O2 Saturation ABG Base Excess ABG Hemoglobin Oxyhemoglobin Sodium Potassium Chloride Carbon Dioxide BUN Creatinine Glucose POC Glucose 166 H Uric Acid Calcium Phosphorus Magnesium Iron TIBC AST ALT Total Creatine Kinase CK-MB (CK-2) Troponin T NT-Pro-B Natriuret Pep Total Protein Albumin Triglycerides HDL Cholesterol Folate Urine WBC (Auto) Urine Creatinine Urine Total Protein Vancomycin Trough 05/30/19 05/31/19 05/31/19 23:45 04:07 13:04 WBC 14.3 H RBC 2.88 L Hgb 7.7 L Hct 23.9 L MCV 83 L MCH 27 L MCHC RDW 17.8 H Plt Count Lymph % (Auto) [place] % (Auto) Eos % (Auto) Lymph # [place] # Eos # Seg Neutrophils % Seg Neuts % (Manual) 83.0 H Lymphocytes % (Manual) 11.0 L Monocytes % (Manual) Eosinophils % (Manual) Nucleated RBC % Seg Neutrophils # Seg Neutrophils # Man 11.9 H Lymphocytes # (Manual) Monocytes # (Manual) 0.9 H Eosinophils # (Manual) PT INR APTT Fibrinogen POC ABG pH ABG pH POC ABG pCO2 47.4 H POC ABG pO2 ABG pO2 ABG HCO3 ABG O2 Saturation ABG Base Excess ABG Hemoglobin Oxyhemoglobin Sodium Potassium Chloride Carbon Dioxide BUN Creatinine Glucose POC Glucose 209 H Uric Acid Calcium Phosphorus Magnesium Iron TIBC AST ALT Total Creatine Kinase CK-MB (CK-2) Troponin T NT-Pro-B Natriuret Pep Total Protein Albumin Triglycerides HDL Cholesterol Folate Urine WBC (Auto) Urine Creatinine Urine Total Protein Vancomycin Trough 05/31/19 05/31/19 06/01/19 13:04 16:42 00:15 WBC RBC Hgb Hct MCV MCH MCHC RDW Plt Count Lymph % (Auto) [place] % (Auto) Eos % (Auto) Lymph # [place] # Eos # Seg Neutrophils % Seg Neuts % (Manual) Lymphocytes % (Manual) Monocytes % (Manual) Eosinophils % (Manual) Nucleated RBC % Seg Neutrophils # Seg Neutrophils # Man Lymphocytes # (Manual) Monocytes # (Manual) Eosinophils # (Manual) PT INR APTT Fibrinogen POC ABG pH ABG pH POC ABG pCO2 POC ABG pO2 ABG pO2 ABG HCO3 ABG O2 Saturation ABG Base Excess ABG Hemoglobin Oxyhemoglobin Sodium 129 L Potassium Chloride 88.6 L Carbon Dioxide 19 L BUN 117 H Creatinine 6.7 H Glucose 205 H POC Glucose 228 H 223 H Uric Acid Calcium 7.4 L Phosphorus 7.40 H Magnesium Iron TIBC AST 58 H ALT 149 H Total Creatine Kinase CK-MB (CK-2) Troponin T NT-Pro-B Natriuret Pep Total Protein 6.0 L Albumin 2.5 L Triglycerides HDL Cholesterol Folate Urine WBC (Auto) Urine Creatinine Urine Total Protein Vancomycin Trough 06/01/19 06/01/19 06/01/19 04:33 05:27 12:31 WBC RBC Hgb Hct MCV MCH MCHC RDW Plt Count Lymph % (Auto) [place] % (Auto) Eos % (Auto) Lymph # [place] # Eos # Seg Neutrophils % Seg Neuts % (Manual) Lymphocytes % (Manual) Monocytes % (Manual) Eosinophils % (Manual) Nucleated RBC % Seg Neutrophils # Seg Neutrophils # Man Lymphocytes # (Manual) Monocytes # (Manual) Eosinophils # (Manual) PT INR APTT Fibrinogen POC ABG pH ABG pH POC ABG pCO2 POC ABG pO2 ABG pO2 56.9 L ABG HCO3 ABG O2 Saturation 85.9 L ABG Base Excess ABG Hemoglobin 8.1 L Oxyhemoglobin 83.6 L Sodium Potassium Chloride Carbon Dioxide BUN Creatinine Glucose POC Glucose 183 H 217 H Uric Acid Calcium Phosphorus Magnesium Iron TIBC AST ALT Total Creatine Kinase CK-MB (CK-2) Troponin T NT-Pro-B Natriuret Pep Total Protein Albumin Triglycerides HDL Cholesterol Folate Urine WBC (Auto) Urine Creatinine Urine Total Protein Vancomycin Trough 06/01/19 06/02/19 06/02/19 18:20 00:00 05:33 WBC RBC Hgb Hct MCV MCH MCHC RDW Plt Count Lymph % (Auto) [place] % (Auto) Eos % (Auto) Lymph # [place] # Eos # Seg Neutrophils % Seg Neuts % (Manual) Lymphocytes % (Manual) Monocytes % (Manual) Eosinophils % (Manual) Nucleated RBC % Seg Neutrophils # Seg Neutrophils # Man Lymphocytes # (Manual) Monocytes # (Manual) Eosinophils # (Manual) PT INR APTT Fibrinogen POC ABG pH ABG pH POC ABG pCO2 POC ABG pO2 ABG pO2 ABG HCO3 ABG O2 Saturation ABG Base Excess ABG Hemoglobin Oxyhemoglobin Sodium Potassium Chloride Carbon Dioxide BUN Creatinine Glucose POC Glucose 265 H 279 H 259 H Uric Acid Calcium Phosphorus Magnesium Iron TIBC AST ALT Total Creatine Kinase CK-MB (CK-2) Troponin T NT-Pro-B Natriuret Pep Total Protein Albumin Triglycerides HDL Cholesterol Folate Urine WBC (Auto) Urine Creatinine Urine Total Protein Vancomycin Trough 06/02/19 06/02/19 06/02/19 11:06 11:06 11:42 WBC 13.1 H RBC 2.92 L Hgb 7.9 L Hct 24.4 L MCV MCH 27 L MCHC RDW 17.4 H Plt Count Lymph % (Auto) [place] % (Auto) Eos % (Auto) Lymph # [place] # Eos # Seg Neutrophils % Seg Neuts % (Manual) 78.0 H Lymphocytes % (Manual) 12.0 L Monocytes % (Manual) 10.0 H Eosinophils % (Manual) Nucleated RBC % Seg Neutrophils # Seg Neutrophils # Man 10.2 H Lymphocytes # (Manual) Monocytes # (Manual) 1.3 H Eosinophils # (Manual) PT INR APTT Fibrinogen POC ABG pH ABG pH POC ABG pCO2 POC ABG pO2 ABG pO2 ABG HCO3 ABG O2 Saturation ABG Base Excess ABG Hemoglobin Oxyhemoglobin Sodium 135 L Potassium Chloride 94.7 L Carbon Dioxide 21 L BUN 107 H Creatinine 4.5 H Glucose 286 H POC Glucose 263 H Uric Acid Calcium 7.9 L Phosphorus 6.30 H Magnesium Iron TIBC AST ALT 104 H Total Creatine Kinase CK-MB (CK-2) Troponin T NT-Pro-B Natriuret Pep Total Protein 6.0 L Albumin 2.7 L Triglycerides HDL Cholesterol Folate Urine WBC (Auto) Urine Creatinine Urine Total Protein Vancomycin Trough 06/02/19 06/02/19 06/03/19 18:17 23:55 05:30 WBC RBC Hgb Hct MCV MCH MCHC RDW Plt Count Lymph % (Auto) [place] % (Auto) Eos % (Auto) Lymph # [place] # Eos # Seg Neutrophils % Seg Neuts % (Manual) Lymphocytes % (Manual) Monocytes % (Manual) Eosinophils % (Manual) Nucleated RBC % Seg Neutrophils # Seg Neutrophils # Man Lymphocytes # (Manual) Monocytes # (Manual) Eosinophils # (Manual) PT INR APTT Fibrinogen POC ABG pH ABG pH POC ABG pCO2 POC ABG pO2 ABG pO2 ABG HCO3 ABG O2 Saturation ABG Base Excess ABG Hemoglobin Oxyhemoglobin Sodium Potassium Chloride 95.1 L Carbon Dioxide 21 L BUN 119 H Creatinine 4.1 H Glucose 330 H POC Glucose 276 H 244 H Uric Acid Calcium 8.1 L Phosphorus Magnesium Iron TIBC AST ALT 98 H Total Creatine Kinase CK-MB (CK-2) Troponin T NT-Pro-B Natriuret Pep Total Protein 5.8 L Albumin 2.8 L Triglycerides HDL Cholesterol Folate Urine WBC (Auto) Urine Creatinine Urine Total Protein Vancomycin Trough 06/03/19 06/03/19 06/03/19 05:30 06:04 09:42 WBC 12.8 H RBC 3.01 L Hgb 8.2 L Hct 25.4 L MCV MCH 27 L MCHC RDW 17.5 H Plt Count Lymph % (Auto) [place] % (Auto) Eos % (Auto) Lymph # [place] # Eos # Seg Neutrophils % Seg Neuts % (Manual) 78.0 H Lymphocytes % (Manual) 10.0 L Monocytes % (Manual) 12.0 H Eosinophils % (Manual) Nucleated RBC % Seg Neutrophils # Seg Neutrophils # Man 10.0 H Lymphocytes # (Manual) Monocytes # (Manual) 1.5 H Eosinophils # (Manual) PT INR APTT Fibrinogen POC ABG pH ABG pH POC ABG pCO2 POC ABG pO2 ABG pO2 ABG HCO3 ABG O2 Saturation ABG Base Excess ABG Hemoglobin Oxyhemoglobin Sodium Potassium Chloride Carbon Dioxide BUN 106 H Creatinine Glucose POC Glucose 254 H Uric Acid Calcium Phosphorus Magnesium Iron TIBC AST ALT Total Creatine Kinase CK-MB (CK-2) Troponin T NT-Pro-B Natriuret Pep Total Protein Albumin Triglycerides HDL Cholesterol Folate Urine WBC (Auto) Urine Creatinine Urine Total Protein Vancomycin Trough 06/03/19 06/03/19 06/03/19 12:52 17:25 23:37 WBC RBC Hgb Hct MCV MCH MCHC RDW Plt Count Lymph % (Auto) [place] % (Auto) Eos % (Auto) Lymph # [place] # Eos # Seg Neutrophils % Seg Neuts % (Manual) Lymphocytes % (Manual) Monocytes % (Manual) Eosinophils % (Manual) Nucleated RBC % Seg Neutrophils # Seg Neutrophils # Man Lymphocytes # (Manual) Monocytes # (Manual) Eosinophils # (Manual) PT INR APTT Fibrinogen POC ABG pH ABG pH POC ABG pCO2 POC ABG pO2 ABG pO2 ABG HCO3 ABG O2 Saturation ABG Base Excess ABG Hemoglobin Oxyhemoglobin Sodium Potassium Chloride Carbon Dioxide BUN Creatinine Glucose POC Glucose 274 H 285 H 310 H Uric Acid Calcium Phosphorus Magnesium Iron TIBC AST ALT Total Creatine Kinase CK-MB (CK-2) Troponin T NT-Pro-B Natriuret Pep Total Protein Albumin Triglycerides HDL Cholesterol Folate Urine WBC (Auto) Urine Creatinine Urine Total Protein Vancomycin Trough 06/04/19 06/04/19 06/04/19 04:57 05:03 11:50 WBC RBC Hgb Hct MCV MCH MCHC RDW Plt Count Lymph % (Auto) [place] % (Auto) Eos % (Auto) Lymph # [place] # Eos # Seg Neutrophils % Seg Neuts % (Manual) Lymphocytes % (Manual) Monocytes % (Manual) Eosinophils % (Manual) Nucleated RBC % Seg Neutrophils # Seg Neutrophils # Man Lymphocytes # (Manual) Monocytes # (Manual) Eosinophils # (Manual) PT INR APTT Fibrinogen POC ABG pH 7.488 H ABG pH POC ABG pCO2 POC ABG pO2 ABG pO2 ABG HCO3 ABG O2 Saturation ABG Base Excess ABG Hemoglobin Oxyhemoglobin Sodium Potassium Chloride Carbon Dioxide BUN Creatinine Glucose POC Glucose 275 H 279 H Uric Acid Calcium Phosphorus Magnesium Iron TIBC AST ALT Total Creatine Kinase CK-MB (CK-2) Troponin T NT-Pro-B Natriuret Pep Total Protein Albumin Triglycerides HDL Cholesterol Folate Urine WBC (Auto) Urine Creatinine Urine Total Protein Vancomycin Trough 06/04/19 06/04/19 06/04/19 18:32 22:03 23:55 WBC RBC Hgb Hct MCV MCH MCHC RDW Plt Count Lymph % (Auto) [place] % (Auto) Eos % (Auto) Lymph # [place] # Eos # Seg Neutrophils % Seg Neuts % (Manual) Lymphocytes % (Manual) Monocytes % (Manual) Eosinophils % (Manual) Nucleated RBC % Seg Neutrophils # Seg Neutrophils # Man Lymphocytes # (Manual) Monocytes # (Manual) Eosinophils # (Manual) PT INR APTT Fibrinogen POC ABG pH ABG pH POC ABG pCO2 POC ABG pO2 ABG pO2 ABG HCO3 ABG O2 Saturation ABG Base Excess ABG Hemoglobin Oxyhemoglobin Sodium Potassium Chloride Carbon Dioxide BUN Creatinine Glucose POC Glucose 267 H 307 H 292 H Uric Acid Calcium Phosphorus Magnesium Iron TIBC AST ALT Total Creatine Kinase CK-MB (CK-2) Troponin T NT-Pro-B Natriuret Pep Total Protein Albumin Triglycerides HDL Cholesterol Folate Urine WBC (Auto) Urine Creatinine Urine Total Protein Vancomycin Trough 06/05/19 06/05/19 06/05/19 03:52 06:41 12:29 WBC RBC Hgb Hct MCV MCH MCHC RDW Plt Count Lymph % (Auto) [place] % (Auto) Eos % (Auto) Lymph # [place] # Eos # Seg Neutrophils % Seg Neuts % (Manual) Lymphocytes % (Manual) Monocytes % (Manual) Eosinophils % (Manual) Nucleated RBC % Seg Neutrophils # Seg Neutrophils # Man Lymphocytes # (Manual) Monocytes # (Manual) Eosinophils # (Manual) PT INR APTT Fibrinogen POC ABG pH 7.462 H ABG pH POC ABG pCO2 POC ABG pO2 ABG pO2 ABG HCO3 ABG O2 Saturation ABG Base Excess ABG Hemoglobin Oxyhemoglobin Sodium Potassium Chloride Carbon Dioxide BUN Creatinine Glucose POC Glucose 369 H 265 H Uric Acid Calcium Phosphorus Magnesium Iron TIBC AST ALT Total Creatine Kinase CK-MB (CK-2) Troponin T NT-Pro-B Natriuret Pep Total Protein Albumin Triglycerides HDL Cholesterol Folate Urine WBC (Auto) Urine Creatinine Urine Total Protein Vancomycin Trough 06/05/19 06/05/19 06/05/19 18:20 21:42 23:21 WBC RBC Hgb Hct MCV MCH MCHC RDW Plt Count Lymph % (Auto) [place] % (Auto) Eos % (Auto) Lymph # [place] # Eos # Seg Neutrophils % Seg Neuts % (Manual) Lymphocytes % (Manual) Monocytes % (Manual) Eosinophils % (Manual) Nucleated RBC % Seg Neutrophils # Seg Neutrophils # Man Lymphocytes # (Manual) Monocytes # (Manual) Eosinophils # (Manual) PT INR APTT Fibrinogen POC ABG pH ABG pH POC ABG pCO2 POC ABG pO2 ABG pO2 ABG HCO3 ABG O2 Saturation ABG Base Excess ABG Hemoglobin Oxyhemoglobin Sodium Potassium Chloride Carbon Dioxide BUN Creatinine Glucose POC Glucose 249 H 246 H 274 H Uric Acid Calcium Phosphorus Magnesium Iron TIBC AST ALT Total Creatine Kinase CK-MB (CK-2) Troponin T NT-Pro-B Natriuret Pep Total Protein Albumin Triglycerides HDL Cholesterol Folate Urine WBC (Auto) Urine Creatinine Urine Total Protein Vancomycin Trough 06/06/19 06/06/19 06/06/19 04:00 05:49 11:34 WBC 18.1 H RBC 3.53 L Hgb 9.5 L Hct 30.3 L MCV MCH 27 L MCHC 31 L RDW 19.5 H Plt Count Lymph % (Auto) [place] % (Auto) Eos % (Auto) Lymph # [place] # Eos # Seg Neutrophils % Seg Neuts % (Manual) 87.0 H Lymphocytes % (Manual) 3.0 L Monocytes % (Manual) 8.0 H Eosinophils % (Manual) Nucleated RBC % Seg Neutrophils # Seg Neutrophils # Man 15.7 H Lymphocytes # (Manual) 0.5 L Monocytes # (Manual) 1.4 H Eosinophils # (Manual) PT INR APTT Fibrinogen POC ABG pH ABG pH 7.472 H POC ABG pCO2 POC ABG pO2 ABG pO2 76.4 L ABG HCO3 28.1 H ABG O2 Saturation ABG Base Excess 4.3 H ABG Hemoglobin 12.5 L Oxyhemoglobin 93.8 L Sodium Potassium Chloride Carbon Dioxide BUN Creatinine Glucose POC Glucose 340 H Uric Acid Calcium Phosphorus Magnesium Iron TIBC AST ALT Total Creatine Kinase CK-MB (CK-2) Troponin T NT-Pro-B Natriuret Pep Total Protein Albumin Triglycerides HDL Cholesterol Folate Urine WBC (Auto) Urine Creatinine Urine Total Protein Vancomycin Trough 06/06/19 06/06/19 06/06/19 11:34 12:11 18:10 WBC RBC Hgb Hct MCV MCH MCHC RDW Plt Count Lymph % (Auto) [place] % (Auto) Eos % (Auto) Lymph # [place] # Eos # Seg Neutrophils % Seg Neuts % (Manual) Lymphocytes % (Manual) Monocytes % (Manual) Eosinophils % (Manual) Nucleated RBC % Seg Neutrophils # Seg Neutrophils # Man Lymphocytes # (Manual) Monocytes # (Manual) Eosinophils # (Manual) PT INR APTT Fibrinogen POC ABG pH ABG pH POC ABG pCO2 POC ABG pO2 ABG pO2 ABG HCO3 ABG O2 Saturation ABG Base Excess ABG Hemoglobin Oxyhemoglobin Sodium Potassium Chloride Carbon Dioxide BUN 70 H Creatinine Glucose 310 H POC Glucose 283 H 301 H Uric Acid Calcium 8.3 L Phosphorus 4.60 H Magnesium Iron TIBC AST ALT 75 H Total Creatine Kinase CK-MB (CK-2) Troponin T NT-Pro-B Natriuret Pep Total Protein 5.6 L Albumin 2.9 L Triglycerides HDL Cholesterol Folate Urine WBC (Auto) Urine Creatinine Urine Total Protein Vancomycin Trough 06/06/19 06/06/19 06/07/19 22:21 23:16 04:30 WBC RBC Hgb Hct MCV MCH MCHC RDW Plt Count Lymph % (Auto) [place] % (Auto) Eos % (Auto) Lymph # [place] # Eos # Seg Neutrophils % Seg Neuts % (Manual) Lymphocytes % (Manual) Monocytes % (Manual) Eosinophils % (Manual) Nucleated RBC % Seg Neutrophils # Seg Neutrophils # Man Lymphocytes # (Manual) Monocytes # (Manual) Eosinophils # (Manual) PT INR APTT Fibrinogen POC ABG pH ABG pH 7.480 H POC ABG pCO2 POC ABG pO2 ABG pO2 77.0 L ABG HCO3 27.2 H ABG O2 Saturation ABG Base Excess 3.5 H ABG Hemoglobin 7.1 L Oxyhemoglobin 94.2 L Sodium Potassium Chloride Carbon Dioxide BUN Creatinine Glucose POC Glucose 289 H 343 H Uric Acid Calcium Phosphorus Magnesium Iron TIBC AST ALT Total Creatine Kinase CK-MB (CK-2) Troponin T NT-Pro-B Natriuret Pep Total Protein Albumin Triglycerides HDL Cholesterol Folate Urine WBC (Auto) Urine Creatinine Urine Total Protein Vancomycin Trough 06/07/19 06/07/19 06/07/19 05:15 12:52 18:41 WBC RBC Hgb Hct MCV MCH MCHC RDW Plt Count Lymph % (Auto) [place] % (Auto) Eos % (Auto) Lymph # [place] # Eos # Seg Neutrophils % Seg Neuts % (Manual) Lymphocytes % (Manual) Monocytes % (Manual) Eosinophils % (Manual) Nucleated RBC % Seg Neutrophils # Seg Neutrophils # Man Lymphocytes # (Manual) Monocytes # (Manual) Eosinophils # (Manual) PT INR APTT Fibrinogen POC ABG pH ABG pH POC ABG pCO2 POC ABG pO2 ABG pO2 ABG HCO3 ABG O2 Saturation ABG Base Excess ABG Hemoglobin Oxyhemoglobin Sodium Potassium Chloride Carbon Dioxide BUN Creatinine Glucose POC Glucose 307 H 226 H 187 H Uric Acid Calcium Phosphorus Magnesium Iron TIBC AST ALT Total Creatine Kinase CK-MB (CK-2) Troponin T NT-Pro-B Natriuret Pep Total Protein Albumin Triglycerides HDL Cholesterol Folate Urine WBC (Auto) Urine Creatinine Urine Total Protein Vancomycin Trough 06/07/19 06/07/19 06/08/19 22:54 23:46 04:20 WBC 16.0 H RBC Hgb 10.0 L Hct 32.1 L MCV MCH 27 L MCHC 31 L RDW 19.4 H Plt Count Lymph % (Auto) [place] % (Auto) Eos % (Auto) Lymph # [place] # Eos # Seg Neutrophils % Seg Neuts % (Manual) 87.0 H Lymphocytes % (Manual) 7.0 L Monocytes % (Manual) Eosinophils % (Manual) Nucleated RBC % Seg Neutrophils # Seg Neutrophils # Man 13.9 H Lymphocytes # (Manual) 1.1 L Monocytes # (Manual) 1.0 H Eosinophils # (Manual) PT INR APTT Fibrinogen POC ABG pH ABG pH POC ABG pCO2 POC ABG pO2 ABG pO2 ABG HCO3 ABG O2 Saturation ABG Base Excess ABG Hemoglobin Oxyhemoglobin Sodium Potassium Chloride Carbon Dioxide BUN Creatinine Glucose POC Glucose 199 H 172 H Uric Acid Calcium Phosphorus Magnesium Iron TIBC AST ALT Total Creatine Kinase CK-MB (CK-2) Troponin T NT-Pro-B Natriuret Pep Total Protein Albumin Triglycerides HDL Cholesterol Folate Urine WBC (Auto) Urine Creatinine Urine Total Protein Vancomycin Trough 06/08/19 06/08/19 06/08/19 04:20 05:15 11:31 WBC RBC Hgb Hct MCV MCH MCHC RDW Plt Count Lymph % (Auto) [place] % (Auto) Eos % (Auto) Lymph # [place] # Eos # Seg Neutrophils % Seg Neuts % (Manual) Lymphocytes % (Manual) Monocytes % (Manual) Eosinophils % (Manual) Nucleated RBC % Seg Neutrophils # Seg Neutrophils # Man Lymphocytes # (Manual) Monocytes # (Manual) Eosinophils # (Manual) PT INR APTT Fibrinogen POC ABG pH ABG pH POC ABG pCO2 POC ABG pO2 ABG pO2 ABG HCO3 ABG O2 Saturation ABG Base Excess ABG Hemoglobin Oxyhemoglobin Sodium 146 H D Potassium Chloride Carbon Dioxide BUN 77 H Creatinine Glucose 205 H POC Glucose 209 H 181 H Uric Acid Calcium Phosphorus Magnesium Iron TIBC AST ALT 66 H Total Creatine Kinase CK-MB (CK-2) Troponin T NT-Pro-B Natriuret Pep Total Protein 5.5 L Albumin 2.9 L Triglycerides HDL Cholesterol Folate Urine WBC (Auto) Urine Creatinine Urine Total Protein Vancomycin Trough 06/08/19 06/08/19 06/09/19 17:28 23:24 05:20 WBC RBC Hgb Hct MCV MCH MCHC RDW Plt Count Lymph % (Auto) [place] % (Auto) Eos % (Auto) Lymph # [place] # Eos # Seg Neutrophils % Seg Neuts % (Manual) Lymphocytes % (Manual) Monocytes % (Manual) Eosinophils % (Manual) Nucleated RBC % Seg Neutrophils # Seg Neutrophils # Man Lymphocytes # (Manual) Monocytes # (Manual) Eosinophils # (Manual) PT INR APTT Fibrinogen POC ABG pH ABG pH POC ABG pCO2 POC ABG pO2 ABG pO2 ABG HCO3 ABG O2 Saturation ABG Base Excess ABG Hemoglobin Oxyhemoglobin Sodium Potassium Chloride Carbon Dioxide BUN Creatinine Glucose POC Glucose 215 H 200 H 173 H Uric Acid Calcium Phosphorus Magnesium Iron TIBC AST ALT Total Creatine Kinase CK-MB (CK-2) Troponin T NT-Pro-B Natriuret Pep Total Protein Albumin Triglycerides HDL Cholesterol Folate Urine WBC (Auto) Urine Creatinine Urine Total Protein Vancomycin Trough 06/09/19 06/09/19 06/09/19 12:07 18:32 23:51 WBC RBC Hgb Hct MCV MCH MCHC RDW Plt Count Lymph % (Auto) [place] % (Auto) Eos % (Auto) Lymph # [place] # Eos # Seg Neutrophils % Seg Neuts % (Manual) Lymphocytes % (Manual) Monocytes % (Manual) Eosinophils % (Manual) Nucleated RBC % Seg Neutrophils # Seg Neutrophils # Man Lymphocytes # (Manual) Monocytes # (Manual) Eosinophils # (Manual) PT INR APTT Fibrinogen POC ABG pH ABG pH POC ABG pCO2 POC ABG pO2 ABG pO2 ABG HCO3 ABG O2 Saturation ABG Base Excess ABG Hemoglobin Oxyhemoglobin Sodium Potassium Chloride Carbon Dioxide BUN Creatinine Glucose POC Glucose 117 H 169 H 147 H Uric Acid Calcium Phosphorus Magnesium Iron TIBC AST ALT Total Creatine Kinase CK-MB (CK-2) Troponin T NT-Pro-B Natriuret Pep Total Protein Albumin Triglycerides HDL Cholesterol Folate Urine WBC (Auto) Urine Creatinine Urine Total Protein Vancomycin Trough 06/10/19 06/10/19 06/10/19 05:45 05:45 06:01 WBC 14.6 H RBC Hgb 9.9 L Hct 32.2 L MCV MCH 27 L MCHC 31 L RDW 19.6 H Plt Count Lymph % (Auto) 10.5 L [place] % (Auto) 9.4 H Eos % (Auto) Lymph # [place] # 1.4 H Eos # Seg Neutrophils % 79.9 H Seg Neuts % (Manual) Lymphocytes % (Manual) Monocytes % (Manual) Eosinophils % (Manual) Nucleated RBC % Seg Neutrophils # 11.7 H Seg Neutrophils # Man Lymphocytes # (Manual) Monocytes # (Manual) Eosinophils # (Manual) PT INR APTT Fibrinogen POC ABG pH ABG pH POC ABG pCO2 POC ABG pO2 ABG pO2 ABG HCO3 ABG O2 Saturation ABG Base Excess ABG Hemoglobin Oxyhemoglobin Sodium 150 H Potassium Chloride 108.3 H Carbon Dioxide BUN 49 H Creatinine Glucose 172 H POC Glucose 165 H Uric Acid Calcium Phosphorus Magnesium 1.40 L Iron TIBC AST ALT Total Creatine Kinase CK-MB (CK-2) Troponin T NT-Pro-B Natriuret Pep Total Protein Albumin Triglycerides HDL Cholesterol Folate Urine WBC (Auto) Urine Creatinine Urine Total Protein Vancomycin Trough 06/10/19 06/10/19 06/11/19 12:11 18:30 00:02 WBC RBC Hgb Hct MCV MCH MCHC RDW Plt Count Lymph % (Auto) [place] % (Auto) Eos % (Auto) Lymph # [place] # Eos # Seg Neutrophils % Seg Neuts % (Manual) Lymphocytes % (Manual) Monocytes % (Manual) Eosinophils % (Manual) Nucleated RBC % Seg Neutrophils # Seg Neutrophils # Man Lymphocytes # (Manual) Monocytes # (Manual) Eosinophils # (Manual) PT INR APTT Fibrinogen POC ABG pH ABG pH POC ABG pCO2 POC ABG pO2 ABG pO2 ABG HCO3 ABG O2 Saturation ABG Base Excess ABG Hemoglobin Oxyhemoglobin Sodium Potassium Chloride Carbon Dioxide BUN Creatinine Glucose POC Glucose 150 H 154 H 130 H Uric Acid Calcium Phosphorus Magnesium Iron TIBC AST ALT Total Creatine Kinase CK-MB (CK-2) Troponin T NT-Pro-B Natriuret Pep Total Protein Albumin Triglycerides HDL Cholesterol Folate Urine WBC (Auto) Urine Creatinine Urine Total Protein Vancomycin Trough 06/11/19 06/11/19 06/11/19 05:33 08:34 12:33 WBC RBC Hgb Hct MCV MCH MCHC RDW Plt Count Lymph % (Auto) [place] % (Auto) Eos % (Auto) Lymph # [place] # Eos # Seg Neutrophils % Seg Neuts % (Manual) Lymphocytes % (Manual) Monocytes % (Manual) Eosinophils % (Manual) Nucleated RBC % Seg Neutrophils # Seg Neutrophils # Man Lymphocytes # (Manual) Monocytes # (Manual) Eosinophils # (Manual) PT INR APTT Fibrinogen POC ABG pH ABG pH POC ABG pCO2 POC ABG pO2 ABG pO2 ABG HCO3 ABG O2 Saturation ABG Base Excess ABG Hemoglobin Oxyhemoglobin Sodium 154 H Potassium Chloride 111.6 H Carbon Dioxide BUN 41 H Creatinine Glucose 147 H POC Glucose 183 H 185 H Uric Acid Calcium Phosphorus Magnesium Iron TIBC AST ALT Total Creatine Kinase CK-MB (CK-2) Troponin T NT-Pro-B Natriuret Pep Total Protein Albumin Triglycerides HDL Cholesterol Folate Urine WBC (Auto) Urine Creatinine Urine Total Protein Vancomycin Trough 06/11/19 06/11/19 06/12/19 18:22 23:46 03:21 WBC 11.9 H RBC 3.61 L Hgb 9.9 L Hct 31.7 L MCV MCH 27 L MCHC 31 L RDW 19.3 H Plt Count Lymph % (Auto) 10.6 L [place] % (Auto) 8.6 H Eos % (Auto) Lymph # [place] # 1.0 H Eos # Seg Neutrophils % 80.6 H Seg Neuts % (Manual) Lymphocytes % (Manual) Monocytes % (Manual) Eosinophils % (Manual) Nucleated RBC % Seg Neutrophils # 9.6 H Seg Neutrophils # Man Lymphocytes # (Manual) Monocytes # (Manual) Eosinophils # (Manual) PT INR APTT Fibrinogen POC ABG pH ABG pH POC ABG pCO2 POC ABG pO2 ABG pO2 ABG HCO3 ABG O2 Saturation ABG Base Excess ABG Hemoglobin Oxyhemoglobin Sodium Potassium Chloride Carbon Dioxide BUN Creatinine Glucose POC Glucose 158 H 182 H Uric Acid Calcium Phosphorus Magnesium Iron TIBC AST ALT Total Creatine Kinase CK-MB (CK-2) Troponin T NT-Pro-B Natriuret Pep Total Protein Albumin Triglycerides HDL Cholesterol Folate Urine WBC (Auto) Urine Creatinine Urine Total Protein Vancomycin Trough 06/12/19 06/12/19 06/12/19 03:21 06:04 11:28 WBC RBC Hgb Hct MCV MCH MCHC RDW Plt Count Lymph % (Auto) [place] % (Auto) Eos % (Auto) Lymph # [place] # Eos # Seg Neutrophils % Seg Neuts % (Manual) Lymphocytes % (Manual) Monocytes % (Manual) Eosinophils % (Manual) Nucleated RBC % Seg Neutrophils # Seg Neutrophils # Man Lymphocytes # (Manual) Monocytes # (Manual) Eosinophils # (Manual) PT INR APTT Fibrinogen POC ABG pH ABG pH POC ABG pCO2 POC ABG pO2 ABG pO2 ABG HCO3 ABG O2 Saturation ABG Base Excess ABG Hemoglobin Oxyhemoglobin Sodium 148 H Potassium Chloride 107.3 H Carbon Dioxide BUN 34 H Creatinine 0.7 L Glucose 194 H POC Glucose 133 H 167 H Uric Acid Calcium Phosphorus Magnesium 1.40 L Iron TIBC AST ALT Total Creatine Kinase CK-MB (CK-2) Troponin T NT-Pro-B Natriuret Pep Total Protein Albumin Triglycerides HDL Cholesterol Folate Urine WBC (Auto) Urine Creatinine Urine Total Protein Vancomycin Trough 06/12/19 06/12/19 06/13/19 18:47 21:27 00:04 WBC RBC Hgb Hct MCV MCH MCHC RDW Plt Count Lymph % (Auto) [place] % (Auto) Eos % (Auto) Lymph # [place] # Eos # Seg Neutrophils % Seg Neuts % (Manual) Lymphocytes % (Manual) Monocytes % (Manual) Eosinophils % (Manual) Nucleated RBC % Seg Neutrophils # Seg Neutrophils # Man Lymphocytes # (Manual) Monocytes # (Manual) Eosinophils # (Manual) PT INR APTT Fibrinogen POC ABG pH ABG pH POC ABG pCO2 POC ABG pO2 ABG pO2 ABG HCO3 ABG O2 Saturation ABG Base Excess ABG Hemoglobin Oxyhemoglobin Sodium Potassium Chloride Carbon Dioxide BUN Creatinine Glucose POC Glucose 210 H 263 H 248 H Uric Acid Calcium Phosphorus Magnesium Iron TIBC AST ALT Total Creatine Kinase CK-MB (CK-2) Troponin T NT-Pro-B Natriuret Pep Total Protein Albumin Triglycerides HDL Cholesterol Folate Urine WBC (Auto) Urine Creatinine Urine Total Protein Vancomycin Trough 06/13/19 06/13/19 06/13/19 04:32 05:46 13:30 WBC RBC Hgb Hct MCV MCH MCHC RDW Plt Count Lymph % (Auto) [place] % (Auto) Eos % (Auto) Lymph # [place] # Eos # Seg Neutrophils % Seg Neuts % (Manual) Lymphocytes % (Manual) Monocytes % (Manual) Eosinophils % (Manual) Nucleated RBC % Seg Neutrophils # Seg Neutrophils # Man Lymphocytes # (Manual) Monocytes # (Manual) Eosinophils # (Manual) PT INR APTT Fibrinogen POC ABG pH ABG pH POC ABG pCO2 POC ABG pO2 ABG pO2 ABG HCO3 ABG O2 Saturation ABG Base Excess ABG Hemoglobin Oxyhemoglobin Sodium Potassium Chloride Carbon Dioxide BUN 27 H Creatinine 0.7 L Glucose 253 H POC Glucose 201 H 241 H Uric Acid Calcium Phosphorus Magnesium Iron TIBC AST ALT Total Creatine Kinase CK-MB (CK-2) Troponin T NT-Pro-B Natriuret Pep Total Protein Albumin Triglycerides HDL Cholesterol Folate Urine WBC (Auto) Urine Creatinine Urine Total Protein Vancomycin Trough 06/13/19 06/13/19 06/14/19 17:33 23:49 04:50 WBC RBC Hgb Hct MCV MCH MCHC RDW Plt Count Lymph % (Auto) [place] % (Auto) Eos % (Auto) Lymph # [place] # Eos # Seg Neutrophils % Seg Neuts % (Manual) Lymphocytes % (Manual) Monocytes % (Manual) Eosinophils % (Manual) Nucleated RBC % Seg Neutrophils # Seg Neutrophils # Man Lymphocytes # (Manual) Monocytes # (Manual) Eosinophils # (Manual) PT INR APTT Fibrinogen POC ABG pH ABG pH POC ABG pCO2 POC ABG pO2 ABG pO2 ABG HCO3 ABG O2 Saturation ABG Base Excess ABG Hemoglobin Oxyhemoglobin Sodium Potassium Chloride Carbon Dioxide BUN 37 H Creatinine Glucose 256 H POC Glucose 264 H 236 H Uric Acid Calcium Phosphorus Magnesium Iron TIBC AST ALT Total Creatine Kinase CK-MB (CK-2) Troponin T NT-Pro-B Natriuret Pep Total Protein Albumin Triglycerides HDL Cholesterol Folate Urine WBC (Auto) Urine Creatinine Urine Total Protein Vancomycin Trough 06/14/19 06/14/19 06/14/19 05:26 12:31 18:32 WBC RBC Hgb Hct MCV MCH MCHC RDW Plt Count Lymph % (Auto) [place] % (Auto) Eos % (Auto) Lymph # [place] # Eos # Seg Neutrophils % Seg Neuts % (Manual) Lymphocytes % (Manual) Monocytes % (Manual) Eosinophils % (Manual) Nucleated RBC % Seg Neutrophils # Seg Neutrophils # Man Lymphocytes # (Manual) Monocytes # (Manual) Eosinophils # (Manual) PT INR APTT Fibrinogen POC ABG pH ABG pH POC ABG pCO2 POC ABG pO2 ABG pO2 ABG HCO3 ABG O2 Saturation ABG Base Excess ABG Hemoglobin Oxyhemoglobin Sodium Potassium Chloride Carbon Dioxide BUN Creatinine Glucose POC Glucose 239 H 116 H 247 H Uric Acid Calcium Phosphorus Magnesium Iron TIBC AST ALT Total Creatine Kinase CK-MB (CK-2) Troponin T NT-Pro-B Natriuret Pep Total Protein Albumin Triglycerides HDL Cholesterol Folate Urine WBC (Auto) Urine Creatinine Urine Total Protein Vancomycin Trough 06/14/19 06/15/19 06/15/19 23:57 04:05 05:55 WBC RBC Hgb Hct MCV MCH MCHC RDW Plt Count Lymph % (Auto) [place] % (Auto) Eos % (Auto) Lymph # [place] # Eos # Seg Neutrophils % Seg Neuts % (Manual) Lymphocytes % (Manual) Monocytes % (Manual) Eosinophils % (Manual) Nucleated RBC % Seg Neutrophils # Seg Neutrophils # Man Lymphocytes # (Manual) Monocytes # (Manual) Eosinophils # (Manual) PT INR APTT Fibrinogen POC ABG pH ABG pH POC ABG pCO2 POC ABG pO2 ABG pO2 ABG HCO3 ABG O2 Saturation ABG Base Excess ABG Hemoglobin Oxyhemoglobin Sodium Potassium Chloride Carbon Dioxide BUN 46 H Creatinine 0.7 L Glucose 265 H POC Glucose 206 H 265 H Uric Acid Calcium Phosphorus Magnesium Iron TIBC AST ALT Total Creatine Kinase CK-MB (CK-2) Troponin T NT-Pro-B Natriuret Pep Total Protein Albumin Triglycerides HDL Cholesterol Folate Urine WBC (Auto) Urine Creatinine Urine Total Protein Vancomycin Trough 06/15/19 06/15/19 06/15/19 12:08 18:45 23:41 WBC RBC Hgb Hct MCV MCH MCHC RDW Plt Count Lymph % (Auto) [place] % (Auto) Eos % (Auto) Lymph # [place] # Eos # Seg Neutrophils % Seg Neuts % (Manual) Lymphocytes % (Manual) Monocytes % (Manual) Eosinophils % (Manual) Nucleated RBC % Seg Neutrophils # Seg Neutrophils # Man Lymphocytes # (Manual) Monocytes # (Manual) Eosinophils # (Manual) PT INR APTT Fibrinogen POC ABG pH ABG pH POC ABG pCO2 POC ABG pO2 ABG pO2 ABG HCO3 ABG O2 Saturation ABG Base Excess ABG Hemoglobin Oxyhemoglobin Sodium Potassium Chloride Carbon Dioxide BUN Creatinine Glucose POC Glucose 224 H 177 H 193 H Uric Acid Calcium Phosphorus Magnesium Iron TIBC AST ALT Total Creatine Kinase CK-MB (CK-2) Troponin T NT-Pro-B Natriuret Pep Total Protein Albumin Triglycerides HDL Cholesterol Folate Urine WBC (Auto) Urine Creatinine Urine Total Protein Vancomycin Trough 06/16/19 06/16/19 06/16/19 05:00 05:00 05:40 WBC 11.9 H RBC 3.24 L Hgb 9.0 L Hct 29.0 L MCV MCH MCHC 31 L RDW 18.6 H Plt Count 111 L Lymph % (Auto) [place] % (Auto) Eos % (Auto) Lymph # [place] # Eos # Seg Neutrophils % Seg Neuts % (Manual) 92.0 H Lymphocytes % (Manual) 2.0 L Monocytes % (Manual) Eosinophils % (Manual) Nucleated RBC % Seg Neutrophils # Seg Neutrophils # Man 10.9 H Lymphocytes # (Manual) 0.2 L Monocytes # (Manual) Eosinophils # (Manual) PT INR APTT Fibrinogen POC ABG pH ABG pH POC ABG pCO2 POC ABG pO2 ABG pO2 ABG HCO3 ABG O2 Saturation ABG Base Excess ABG Hemoglobin Oxyhemoglobin Sodium Potassium Chloride Carbon Dioxide 33 H BUN 49 H Creatinine 0.7 L Glucose 264 H POC Glucose 247 H Uric Acid Calcium Phosphorus Magnesium Iron TIBC AST ALT Total Creatine Kinase CK-MB (CK-2) Troponin T NT-Pro-B Natriuret Pep Total Protein Albumin Triglycerides HDL Cholesterol Folate Urine WBC (Auto) Urine Creatinine Urine Total Protein Vancomycin Trough 06/16/19 06/16/19 06/16/19 12:03 17:11 18:11 WBC RBC Hgb Hct MCV MCH MCHC RDW Plt Count Lymph % (Auto) [place] % (Auto) Eos % (Auto) Lymph # [place] # Eos # Seg Neutrophils % Seg Neuts % (Manual) Lymphocytes % (Manual) Monocytes % (Manual) Eosinophils % (Manual) Nucleated RBC % Seg Neutrophils # Seg Neutrophils # Man Lymphocytes # (Manual) Monocytes # (Manual) Eosinophils # (Manual) PT INR APTT Fibrinogen POC ABG pH ABG pH 7.289 L POC ABG pCO2 POC ABG pO2 ABG pO2 399.3 H ABG HCO3 30.1 H ABG O2 Saturation 99.6 H ABG Base Excess ABG Hemoglobin 8.6 L Oxyhemoglobin Sodium Potassium Chloride Carbon Dioxide BUN Creatinine Glucose POC Glucose 252 H 254 H Uric Acid Calcium Phosphorus Magnesium Iron TIBC AST ALT Total Creatine Kinase CK-MB (CK-2) Troponin T NT-Pro-B Natriuret Pep Total Protein Albumin Triglycerides HDL Cholesterol Folate Urine WBC (Auto) Urine Creatinine Urine Total Protein Vancomycin Trough 06/16/19 06/17/19 06/17/19 23:16 05:30 05:53 WBC RBC Hgb Hct MCV MCH MCHC RDW Plt Count Lymph % (Auto) [place] % (Auto) Eos % (Auto) Lymph # [place] # Eos # Seg Neutrophils % Seg Neuts % (Manual) Lymphocytes % (Manual) Monocytes % (Manual) Eosinophils % (Manual) Nucleated RBC % Seg Neutrophils # Seg Neutrophils # Man Lymphocytes # (Manual) Monocytes # (Manual) Eosinophils # (Manual) PT INR APTT Fibrinogen POC ABG pH ABG pH POC ABG pCO2 POC ABG pO2 ABG pO2 ABG HCO3 ABG O2 Saturation ABG Base Excess ABG Hemoglobin Oxyhemoglobin Sodium 147 H Potassium Chloride Carbon Dioxide 32 H BUN 60 H Creatinine Glucose 205 H POC Glucose 238 H 211 H Uric Acid Calcium Phosphorus Magnesium Iron TIBC AST ALT Total Creatine Kinase CK-MB (CK-2) Troponin T NT-Pro-B Natriuret Pep Total Protein Albumin Triglycerides HDL Cholesterol Folate Urine WBC (Auto) Urine Creatinine Urine Total Protein Vancomycin Trough 06/17/19 06/17/19 06/17/19 09:50 12:27 12:45 WBC RBC 2.79 L Hgb 8.2 L Hct 24.6 L MCV MCH MCHC RDW 18.5 H Plt Count 95 L Lymph % (Auto) [place] % (Auto) Eos % (Auto) Lymph # [place] # Eos # Seg Neutrophils % Seg Neuts % (Manual) Lymphocytes % (Manual) Monocytes % (Manual) Eosinophils % (Manual) Nucleated RBC % Seg Neutrophils # Seg Neutrophils # Man Lymphocytes # (Manual) Monocytes # (Manual) Eosinophils # (Manual) PT INR APTT Fibrinogen 194 L POC ABG pH ABG pH POC ABG pCO2 POC ABG pO2 ABG pO2 ABG HCO3 ABG O2 Saturation ABG Base Excess ABG Hemoglobin Oxyhemoglobin Sodium Potassium Chloride Carbon Dioxide BUN Creatinine Glucose POC Glucose 224 H Uric Acid Calcium Phosphorus Magnesium Iron TIBC AST ALT Total Creatine Kinase CK-MB (CK-2) Troponin T NT-Pro-B Natriuret Pep Total Protein Albumin Triglycerides HDL Cholesterol Folate Urine WBC (Auto) Urine Creatinine Urine Total Protein Vancomycin Trough 06/17/19 06/17/19 06/17/19 18:41 22:00 23:23 WBC RBC Hgb Hct MCV MCH MCHC RDW Plt Count Lymph % (Auto) [place] % (Auto) Eos % (Auto) Lymph # [place] # Eos # Seg Neutrophils % Seg Neuts % (Manual) Lymphocytes % (Manual) Monocytes % (Manual) Eosinophils % (Manual) Nucleated RBC % Seg Neutrophils # Seg Neutrophils # Man Lymphocytes # (Manual) Monocytes # (Manual) Eosinophils # (Manual) PT INR APTT Fibrinogen POC ABG pH ABG pH POC ABG pCO2 POC ABG pO2 ABG pO2 ABG HCO3 ABG O2 Saturation ABG Base Excess ABG Hemoglobin Oxyhemoglobin Sodium Potassium Chloride Carbon Dioxide BUN Creatinine Glucose POC Glucose 198 H 166 H 171 H Uric Acid Calcium Phosphorus Magnesium Iron TIBC AST ALT Total Creatine Kinase CK-MB (CK-2) Troponin T NT-Pro-B Natriuret Pep Total Protein Albumin Triglycerides HDL Cholesterol Folate Urine WBC (Auto) Urine Creatinine Urine Total Protein Vancomycin Trough 06/17/19 06/18/19 06/18/19 Unknown 03:50 04:25 WBC RBC Hgb Hct MCV MCH MCHC RDW Plt Count Lymph % (Auto) [place] % (Auto) Eos % (Auto) Lymph # [place] # Eos # Seg Neutrophils % Seg Neuts % (Manual) Lymphocytes % (Manual) Monocytes % (Manual) Eosinophils % (Manual) Nucleated RBC % Seg Neutrophils # Seg Neutrophils # Man Lymphocytes # (Manual) Monocytes # (Manual) Eosinophils # (Manual) PT INR APTT Fibrinogen POC ABG pH ABG pH 7.564 H 7.499 H POC ABG pCO2 POC ABG pO2 ABG pO2 238.6 H 130.8 H ABG HCO3 33.6 H 32.5 H ABG O2 Saturation 99.4 H ABG Base Excess 10.6 H 8.5 H ABG Hemoglobin 7.9 L 8.8 L Oxyhemoglobin Sodium 151 H Potassium 3.4 L Chloride Carbon Dioxide BUN 66 H Creatinine Glucose 189 H POC Glucose Uric Acid Calcium Phosphorus Magnesium Iron TIBC AST ALT Total Creatine Kinase CK-MB (CK-2) Troponin T NT-Pro-B Natriuret Pep Total Protein Albumin Triglycerides HDL Cholesterol Folate Urine WBC (Auto) Urine Creatinine Urine Total Protein Vancomycin Trough 06/18/19 06/18/19 06/18/19 05:25 05:27 11:50 WBC RBC 2.61 L Hgb 7.4 L Hct 22.9 L MCV MCH MCHC RDW 19.9 H Plt Count 81 L Lymph % (Auto) 12.9 L [place] % (Auto) 7.7 H Eos % (Auto) Lymph # 1.1 L [place] # Eos # Seg Neutrophils % 77.4 H Seg Neuts % (Manual) Lymphocytes % (Manual) Monocytes % (Manual) Eosinophils % (Manual) Nucleated RBC % Seg Neutrophils # Seg Neutrophils # Man Lymphocytes # (Manual) Monocytes # (Manual) Eosinophils # (Manual) PT INR APTT Fibrinogen POC ABG pH ABG pH POC ABG pCO2 POC ABG pO2 ABG pO2 ABG HCO3 ABG O2 Saturation ABG Base Excess ABG Hemoglobin Oxyhemoglobin Sodium Potassium Chloride Carbon Dioxide BUN Creatinine Glucose POC Glucose 186 H 263 H Uric Acid Calcium Phosphorus Magnesium Iron TIBC AST ALT Total Creatine Kinase CK-MB (CK-2) Troponin T NT-Pro-B Natriuret Pep Total Protein Albumin Triglycerides HDL Cholesterol Folate Urine WBC (Auto) Urine Creatinine Urine Total Protein Vancomycin Trough 06/18/19 06/18/19 06/18/19 18:35 21:31 23:21 WBC RBC Hgb Hct MCV MCH MCHC RDW Plt Count Lymph % (Auto) [place] % (Auto) Eos % (Auto) Lymph # [place] # Eos # Seg Neutrophils % Seg Neuts % (Manual) Lymphocytes % (Manual) Monocytes % (Manual) Eosinophils % (Manual) Nucleated RBC % Seg Neutrophils # Seg Neutrophils # Man Lymphocytes # (Manual) Monocytes # (Manual) Eosinophils # (Manual) PT INR APTT Fibrinogen POC ABG pH ABG pH POC ABG pCO2 POC ABG pO2 ABG pO2 ABG HCO3 ABG O2 Saturation ABG Base Excess ABG Hemoglobin Oxyhemoglobin Sodium Potassium Chloride Carbon Dioxide BUN Creatinine Glucose POC Glucose 154 H 186 H 202 H Uric Acid Calcium Phosphorus Magnesium Iron TIBC AST ALT Total Creatine Kinase CK-MB (CK-2) Troponin T NT-Pro-B Natriuret Pep Total Protein Albumin Triglycerides HDL Cholesterol Folate Urine WBC (Auto) Urine Creatinine Urine Total Protein Vancomycin Trough 06/19/19 06/19/19 06/19/19 03:18 04:30 04:30 WBC RBC 2.65 L Hgb 7.5 L Hct 23.1 L MCV MCH MCHC RDW 19.4 H Plt Count 74 L Lymph % (Auto) 8.8 L [place] % (Auto) 9.4 H Eos % (Auto) 4.7 H Lymph # 0.6 L [place] # Eos # Seg Neutrophils % 76.6 H Seg Neuts % (Manual) Lymphocytes % (Manual) Monocytes % (Manual) Eosinophils % (Manual) Nucleated RBC % Seg Neutrophils # Seg Neutrophils # Man Lymphocytes # (Manual) Monocytes # (Manual) Eosinophils # (Manual) PT INR APTT Fibrinogen POC ABG pH ABG pH 7.452 H POC ABG pCO2 POC ABG pO2 ABG pO2 105.5 H ABG HCO3 32.3 H ABG O2 Saturation ABG Base Excess 7.6 H ABG Hemoglobin 6.9 L Oxyhemoglobin Sodium 150 H Potassium 3.3 L Chloride Carbon Dioxide 31 H BUN 56 H Creatinine Glucose 197 H POC Glucose Uric Acid Calcium Phosphorus Magnesium Iron TIBC AST ALT Total Creatine Kinase CK-MB (CK-2) Troponin T NT-Pro-B Natriuret Pep Total Protein Albumin Triglycerides 210 H HDL Cholesterol Folate Urine WBC (Auto) Urine Creatinine Urine Total Protein Vancomycin Trough 06/19/19 06/19/19 06/19/19 05:24 12:18 18:55 WBC RBC Hgb Hct MCV MCH MCHC RDW Plt Count Lymph % (Auto) [place] % (Auto) Eos % (Auto) Lymph # [place] # Eos # Seg Neutrophils % Seg Neuts % (Manual) Lymphocytes % (Manual) Monocytes % (Manual) Eosinophils % (Manual) Nucleated RBC % Seg Neutrophils # Seg Neutrophils # Man Lymphocytes # (Manual) Monocytes # (Manual) Eosinophils # (Manual) PT INR APTT Fibrinogen POC ABG pH ABG pH POC ABG pCO2 POC ABG pO2 ABG pO2 ABG HCO3 ABG O2 Saturation ABG Base Excess ABG Hemoglobin Oxyhemoglobin Sodium Potassium Chloride Carbon Dioxide BUN Creatinine Glucose POC Glucose 176 H 260 H 192 H Uric Acid Calcium Phosphorus Magnesium Iron TIBC AST ALT Total Creatine Kinase CK-MB (CK-2) Troponin T NT-Pro-B Natriuret Pep Total Protein Albumin Triglycerides HDL Cholesterol Folate Urine WBC (Auto) Urine Creatinine Urine Total Protein Vancomycin Trough 06/19/19 06/19/19 06/20/19 22:57 23:46 04:40 WBC RBC 2.79 L Hgb 7.9 L Hct 24.3 L MCV MCH MCHC RDW 19.6 H Plt Count 92 L Lymph % (Auto) 9.2 L [place] % (Auto) 12.0 H Eos % (Auto) 5.2 H Lymph # 0.9 L [place] # 1.2 H Eos # 0.5 H Seg Neutrophils % 73.3 H Seg Neuts % (Manual) Lymphocytes % (Manual) Monocytes % (Manual) Eosinophils % (Manual) Nucleated RBC % Seg Neutrophils # Seg Neutrophils # Man Lymphocytes # (Manual) Monocytes # (Manual) Eosinophils # (Manual) PT INR APTT Fibrinogen POC ABG pH ABG pH POC ABG pCO2 POC ABG pO2 ABG pO2 ABG HCO3 ABG O2 Saturation ABG Base Excess ABG Hemoglobin Oxyhemoglobin Sodium Potassium Chloride Carbon Dioxide BUN Creatinine Glucose POC Glucose 145 H 216 H Uric Acid Calcium Phosphorus Magnesium Iron TIBC AST ALT Total Creatine Kinase CK-MB (CK-2) Troponin T NT-Pro-B Natriuret Pep Total Protein Albumin Triglycerides HDL Cholesterol Folate Urine WBC (Auto) Urine Creatinine Urine Total Protein Vancomycin Trough 06/20/19 06/20/19 06/20/19 04:40 05:40 05:54 WBC RBC Hgb Hct MCV MCH MCHC RDW Plt Count Lymph % (Auto) [place] % (Auto) Eos % (Auto) Lymph # [place] # Eos # Seg Neutrophils % Seg Neuts % (Manual) Lymphocytes % (Manual) Monocytes % (Manual) Eosinophils % (Manual) Nucleated RBC % Seg Neutrophils # Seg Neutrophils # Man Lymphocytes # (Manual) Monocytes # (Manual) Eosinophils # (Manual) PT INR APTT Fibrinogen POC ABG pH ABG pH 7.455 H POC ABG pCO2 POC ABG pO2 ABG pO2 60.9 L ABG HCO3 30.3 H ABG O2 Saturation 92.3 L ABG Base Excess 5.8 H ABG Hemoglobin 8.2 L Oxyhemoglobin 90.1 L Sodium Potassium 3.5 L Chloride Carbon Dioxide BUN 59 H Creatinine Glucose 200 H POC Glucose 190 H Uric Acid Calcium Phosphorus Magnesium 1.60 L Iron TIBC AST ALT Total Creatine Kinase CK-MB (CK-2) Troponin T NT-Pro-B Natriuret Pep Total Protein Albumin Triglycerides HDL Cholesterol Folate Urine WBC (Auto) Urine Creatinine Urine Total Protein Vancomycin Trough 0106/20/19 06/20/19 09:12 09:12 12:24 WBC RBC Hgb Hct MCV MCH MCHC RDW Plt Count Lymph % (Auto) [place] % (Auto) Eos % (Auto) Lymph # [place] # Eos # Seg Neutrophils % Seg Neuts % (Manual) Lymphocytes % (Manual) Monocytes % (Manual) Eosinophils % (Manual) Nucleated RBC % Seg Neutrophils # Seg Neutrophils # Man Lymphocytes # (Manual) Monocytes # (Manual) Eosinophils # (Manual) PT INR APTT Fibrinogen POC ABG pH ABG pH POC ABG pCO2 POC ABG pO2 ABG pO2 ABG HCO3 ABG O2 Saturation ABG Base Excess ABG Hemoglobin Oxyhemoglobin Sodium Potassium Chloride Carbon Dioxide BUN Creatinine Glucose POC Glucose 225 H Uric Acid Calcium Phosphorus Magnesium Iron 45 L TIBC 110 L AST ALT Total Creatine Kinase CK-MB (CK-2) Troponin T NT-Pro-B Natriuret Pep Total Protein Albumin Triglycerides HDL Cholesterol Folate 7.01 L Urine WBC (Auto) Urine Creatinine Urine Total Protein Vancomycin Trough 06/20/19 06/20/19 06/20/19 17:42 21:55 23:24 WBC RBC Hgb Hct MCV MCH MCHC RDW Plt Count Lymph % (Auto) [place] % (Auto) Eos % (Auto) Lymph # [place] # Eos # Seg Neutrophils % Seg Neuts % (Manual) Lymphocytes % (Manual) Monocytes % (Manual) Eosinophils % (Manual) Nucleated RBC % Seg Neutrophils # Seg Neutrophils # Man Lymphocytes # (Manual) Monocytes # (Manual) Eosinophils # (Manual) PT INR APTT Fibrinogen POC ABG pH ABG pH POC ABG pCO2 POC ABG pO2 ABG pO2 ABG HCO3 ABG O2 Saturation ABG Base Excess ABG Hemoglobin Oxyhemoglobin Sodium Potassium Chloride Carbon Dioxide BUN Creatinine Glucose POC Glucose 255 H 218 H 215 H Uric Acid Calcium Phosphorus Magnesium Iron TIBC AST ALT Total Creatine Kinase CK-MB (CK-2) Troponin T NT-Pro-B Natriuret Pep Total Protein Albumin Triglycerides HDL Cholesterol Folate Urine WBC (Auto) Urine Creatinine Urine Total Protein Vancomycin Trough 06/21/19 06/21/19 06/21/19 03:32 03:40 05:20 WBC 12.8 H RBC 3.03 L Hgb 8.5 L Hct 26.2 L MCV MCH MCHC RDW 19.4 H Plt Count 131 L Lymph % (Auto) [place] % (Auto) Eos % (Auto) Lymph # [place] # Eos # Seg Neutrophils % Seg Neuts % (Manual) 78.0 H Lymphocytes % (Manual) 5.0 L Monocytes % (Manual) 11.0 H Eosinophils % (Manual) Nucleated RBC % Seg Neutrophils # Seg Neutrophils # Man 10.0 H Lymphocytes # (Manual) 0.6 L Monocytes # (Manual) 1.4 H Eosinophils # (Manual) 0.5 H PT INR APTT Fibrinogen POC ABG pH ABG pH 7.476 H POC ABG pCO2 POC ABG pO2 ABG pO2 162.0 H ABG HCO3 26.8 H ABG O2 Saturation 99.1 H ABG Base Excess 3.1 H ABG Hemoglobin 8.6 L Oxyhemoglobin Sodium Potassium Chloride Carbon Dioxide BUN Creatinine Glucose POC Glucose 202 H Uric Acid Calcium Phosphorus Magnesium Iron TIBC AST ALT Total Creatine Kinase CK-MB (CK-2) Troponin T NT-Pro-B Natriuret Pep Total Protein Albumin Triglycerides HDL Cholesterol Folate Urine WBC (Auto) Urine Creatinine Urine Total Protein Vancomycin Trough 06/21/19 06/21/19 06/21/19 05:20 12:30 18:18 WBC RBC Hgb Hct MCV MCH MCHC RDW Plt Count Lymph % (Auto) [place] % (Auto) Eos % (Auto) Lymph # [place] # Eos # Seg Neutrophils % Seg Neuts % (Manual) Lymphocytes % (Manual) Monocytes % (Manual) Eosinophils % (Manual) Nucleated RBC % Seg Neutrophils # Seg Neutrophils # Man Lymphocytes # (Manual) Monocytes # (Manual) Eosinophils # (Manual) PT INR APTT Fibrinogen POC ABG pH ABG pH POC ABG pCO2 POC ABG pO2 ABG pO2 ABG HCO3 ABG O2 Saturation ABG Base Excess ABG Hemoglobin Oxyhemoglobin Sodium Potassium Chloride 97.7 L Carbon Dioxide BUN 69 H Creatinine Glucose 239 H POC Glucose 176 H 187 H Uric Acid Calcium Phosphorus Magnesium 2.40 H Iron TIBC AST ALT Total Creatine Kinase CK-MB (CK-2) Troponin T NT-Pro-B Natriuret Pep Total Protein Albumin Triglycerides HDL Cholesterol Folate Urine WBC (Auto) Urine Creatinine Urine Total Protein Vancomycin Trough 06/22/19 06/22/19 06/22/19 04:11 05:30 05:30 WBC 12.6 H RBC 3.10 L Hgb 8.7 L Hct 27.0 L MCV MCH MCHC RDW 19.8 H Plt Count Lymph % (Auto) [place] % (Auto) Eos % (Auto) Lymph # [place] # Eos # Seg Neutrophils % Seg Neuts % (Manual) Lymphocytes % (Manual) Monocytes % (Manual) 10.0 H Eosinophils % (Manual) Nucleated RBC % Seg Neutrophils # Seg Neutrophils # Man 8.7 H Lymphocytes # (Manual) Monocytes # (Manual) 1.3 H Eosinophils # (Manual) PT INR APTT Fibrinogen POC ABG pH ABG pH POC ABG pCO2 POC ABG pO2 ABG pO2 ABG HCO3 27.7 H ABG O2 Saturation ABG Base Excess 3.3 H ABG Hemoglobin 8.5 L Oxyhemoglobin 94.9 L Sodium Potassium Chloride Carbon Dioxide BUN 66 H Creatinine Glucose 103 H POC Glucose Uric Acid Calcium Phosphorus Magnesium Iron TIBC AST ALT Total Creatine Kinase CK-MB (CK-2) Troponin T NT-Pro-B Natriuret Pep Total Protein Albumin Triglycerides HDL Cholesterol Folate Urine WBC (Auto) Urine Creatinine Urine Total Protein Vancomycin Trough 06/22/19 06/22/19 06/23/19 17:43 23:25 02:00 WBC RBC Hgb Hct MCV MCH MCHC RDW Plt Count Lymph % (Auto) [place] % (Auto) Eos % (Auto) Lymph # [place] # Eos # Seg Neutrophils % Seg Neuts % (Manual) Lymphocytes % (Manual) Monocytes % (Manual) Eosinophils % (Manual) Nucleated RBC % Seg Neutrophils # Seg Neutrophils # Man Lymphocytes # (Manual) Monocytes # (Manual) Eosinophils # (Manual) PT INR APTT Fibrinogen POC ABG pH ABG pH 7.469 H POC ABG pCO2 POC ABG pO2 ABG pO2 58.7 L ABG HCO3 28.0 H ABG O2 Saturation 94.6 L ABG Base Excess 4.0 H ABG Hemoglobin 7.1 L Oxyhemoglobin 92.2 L Sodium Potassium Chloride Carbon Dioxide BUN Creatinine Glucose POC Glucose 143 H 106 H Uric Acid Calcium Phosphorus Magnesium Iron TIBC AST ALT Total Creatine Kinase CK-MB (CK-2) Troponin T NT-Pro-B Natriuret Pep Total Protein Albumin Triglycerides HDL Cholesterol Folate Urine WBC (Auto) Urine Creatinine Urine Total Protein Vancomycin Trough 06/23/19 06/23/19 06/23/19 05:24 05:24 11:43 WBC 12.6 H RBC 2.96 L Hgb 8.3 L Hct 25.5 L MCV MCH MCHC RDW 20.2 H Plt Count Lymph % (Auto) [place] % (Auto) Eos % (Auto) Lymph # [place] # Eos # Seg Neutrophils % Seg Neuts % (Manual) Lymphocytes % (Manual) 12.0 L Monocytes % (Manual) 11.0 H Eosinophils % (Manual) 6.0 H Nucleated RBC % Seg Neutrophils # Seg Neutrophils # Man 8.8 H Lymphocytes # (Manual) Monocytes # (Manual) 1.4 H Eosinophils # (Manual) 0.8 H PT INR APTT Fibrinogen POC ABG pH ABG pH POC ABG pCO2 POC ABG pO2 ABG pO2 ABG HCO3 ABG O2 Saturation ABG Base Excess ABG Hemoglobin Oxyhemoglobin Sodium 146 H Potassium 3.5 L Chloride Carbon Dioxide BUN 48 H Creatinine Glucose 123 H POC Glucose 120 H Uric Acid Calcium Phosphorus Magnesium Iron TIBC AST ALT Total Creatine Kinase CK-MB (CK-2) Troponin T NT-Pro-B Natriuret Pep Total Protein Albumin Triglycerides HDL Cholesterol Folate Urine WBC (Auto) Urine Creatinine Urine Total Protein Vancomycin Trough 06/23/19 06/24/19 06/24/19 17:39 06:53 06:53 WBC 12.3 H RBC 2.87 L Hgb 8.0 L Hct 24.9 L MCV MCH MCHC RDW 20.5 H Plt Count Lymph % (Auto) [place] % (Auto) 8.8 H Eos % (Auto) 4.4 H Lymph # [place] # 1.1 H Eos # 0.5 H Seg Neutrophils % Seg Neuts % (Manual) Lymphocytes % (Manual) Monocytes % (Manual) Eosinophils % (Manual) Nucleated RBC % Seg Neutrophils # Seg Neutrophils # Man Lymphocytes # (Manual) Monocytes # (Manual) Eosinophils # (Manual) PT INR APTT Fibrinogen POC ABG pH ABG pH POC ABG pCO2 POC ABG pO2 ABG pO2 ABG HCO3 ABG O2 Saturation ABG Base Excess ABG Hemoglobin Oxyhemoglobin Sodium Potassium Chloride 107.1 H Carbon Dioxide 21 L BUN 29 H Creatinine 0.6 L Glucose 117 H POC Glucose 111 H Uric Acid Calcium Phosphorus Magnesium 1.60 L Iron TIBC AST ALT Total Creatine Kinase CK-MB (CK-2) Troponin T NT-Pro-B Natriuret Pep Total Protein Albumin Triglycerides HDL Cholesterol Folate Urine WBC (Auto) Urine Creatinine Urine Total Protein Vancomycin Trough 06/24/19 06/24/19 06/24/19 12:12 18:01 23:20 WBC RBC Hgb Hct MCV MCH MCHC RDW Plt Count Lymph % (Auto) [place] % (Auto) Eos % (Auto) Lymph # [place] # Eos # Seg Neutrophils % Seg Neuts % (Manual) Lymphocytes % (Manual) Monocytes % (Manual) Eosinophils % (Manual) Nucleated RBC % Seg Neutrophils # Seg Neutrophils # Man Lymphocytes # (Manual) Monocytes # (Manual) Eosinophils # (Manual) PT INR APTT Fibrinogen POC ABG pH ABG pH POC ABG pCO2 POC ABG pO2 ABG pO2 ABG HCO3 ABG O2 Saturation ABG Base Excess ABG Hemoglobin Oxyhemoglobin Sodium Potassium Chloride Carbon Dioxide BUN Creatinine Glucose POC Glucose 158 H 133 H 106 H Uric Acid Calcium Phosphorus Magnesium Iron TIBC AST ALT Total Creatine Kinase CK-MB (CK-2) Troponin T NT-Pro-B Natriuret Pep Total Protein Albumin Triglycerides HDL Cholesterol Folate Urine WBC (Auto) Urine Creatinine Urine Total Protein Vancomycin Trough 06/25/19 06/25/19 06/25/19 04:46 04:46 05:36 WBC 12.3 H RBC 2.98 L Hgb 8.3 L Hct 26.4 L MCV MCH MCHC 31 L RDW 20.1 H Plt Count Lymph % (Auto) [place] % (Auto) Eos % (Auto) Lymph # [place] # Eos # Seg Neutrophils % Seg Neuts % (Manual) Lymphocytes % (Manual) Monocytes % (Manual) 10.0 H Eosinophils % (Manual) Nucleated RBC % Seg Neutrophils # Seg Neutrophils # Man 8.1 H Lymphocytes # (Manual) Monocytes # (Manual) 1.2 H Eosinophils # (Manual) PT INR APTT Fibrinogen POC ABG pH ABG pH POC ABG pCO2 POC ABG pO2 ABG pO2 ABG HCO3 ABG O2 Saturation ABG Base Excess ABG Hemoglobin Oxyhemoglobin Sodium 148 H Potassium Chloride 108.0 H Carbon Dioxide BUN 21 H Creatinine 0.7 L Glucose 120 H POC Glucose 121 H Uric Acid Calcium Phosphorus Magnesium Iron TIBC AST ALT Total Creatine Kinase CK-MB (CK-2) Troponin T NT-Pro-B Natriuret Pep Total Protein Albumin Triglycerides HDL Cholesterol Folate Urine WBC (Auto) Urine Creatinine Urine Total Protein Vancomycin Trough 06/25/19 06/25/19 06/26/19 14:02 18:30 00:01 WBC RBC Hgb Hct MCV MCH MCHC RDW Plt Count Lymph % (Auto) [place] % (Auto) Eos % (Auto) Lymph # [place] # Eos # Seg Neutrophils % Seg Neuts % (Manual) Lymphocytes % (Manual) Monocytes % (Manual) Eosinophils % (Manual) Nucleated RBC % Seg Neutrophils # Seg Neutrophils # Man Lymphocytes # (Manual) Monocytes # (Manual) Eosinophils # (Manual) PT INR APTT Fibrinogen POC ABG pH ABG pH POC ABG pCO2 POC ABG pO2 ABG pO2 ABG HCO3 ABG O2 Saturation ABG Base Excess ABG Hemoglobin Oxyhemoglobin Sodium Potassium Chloride Carbon Dioxide BUN Creatinine Glucose POC Glucose 125 H 145 H 142 H Uric Acid Calcium Phosphorus Magnesium Iron TIBC AST ALT Total Creatine Kinase CK-MB (CK-2) Troponin T NT-Pro-B Natriuret Pep Total Protein Albumin Triglycerides HDL Cholesterol Folate Urine WBC (Auto) Urine Creatinine Urine Total Protein Vancomycin Trough 06/26/19 06/26/19 06/26/19 04:43 04:43 05:41 WBC RBC 3.02 L Hgb 8.6 L Hct 27.0 L MCV MCH MCHC RDW 20.4 H Plt Count Lymph % (Auto) [place] % (Auto) Eos % (Auto) Lymph # [place] # Eos # Seg Neutrophils % Seg Neuts % (Manual) Lymphocytes % (Manual) Monocytes % (Manual) 9.0 H Eosinophils % (Manual) Nucleated RBC % Seg Neutrophils # Seg Neutrophils # Man Lymphocytes # (Manual) Monocytes # (Manual) 1.0 H Eosinophils # (Manual) PT INR APTT Fibrinogen POC ABG pH ABG pH POC ABG pCO2 POC ABG pO2 ABG pO2 ABG HCO3 ABG O2 Saturation ABG Base Excess ABG Hemoglobin Oxyhemoglobin Sodium Potassium Chloride Carbon Dioxide BUN Creatinine 0.7 L Glucose 111 H POC Glucose 110 H Uric Acid Calcium Phosphorus Magnesium 1.60 L Iron TIBC AST ALT Total Creatine Kinase CK-MB (CK-2) Troponin T NT-Pro-B Natriuret Pep Total Protein Albumin Triglycerides HDL Cholesterol Folate Urine WBC (Auto) Urine Creatinine Urine Total Protein Vancomycin Trough 06/26/19 06/26/19 06/27/19 11:55 18:07 12:10 WBC RBC Hgb Hct MCV MCH MCHC RDW Plt Count Lymph % (Auto) [place] % (Auto) Eos % (Auto) Lymph # [place] # Eos # Seg Neutrophils % Seg Neuts % (Manual) Lymphocytes % (Manual) Monocytes % (Manual) Eosinophils % (Manual) Nucleated RBC % Seg Neutrophils # Seg Neutrophils # Man Lymphocytes # (Manual) Monocytes # (Manual) Eosinophils # (Manual) PT INR APTT Fibrinogen POC ABG pH ABG pH POC ABG pCO2 POC ABG pO2 ABG pO2 ABG HCO3 ABG O2 Saturation ABG Base Excess ABG Hemoglobin Oxyhemoglobin Sodium Potassium Chloride Carbon Dioxide BUN Creatinine Glucose POC Glucose 159 H 107 H 121 H Uric Acid Calcium Phosphorus Magnesium Iron TIBC AST ALT Total Creatine Kinase CK-MB (CK-2) Troponin T NT-Pro-B Natriuret Pep Total Protein Albumin Triglycerides HDL Cholesterol Folate Urine WBC (Auto) Urine Creatinine Urine Total Protein Vancomycin Trough 06/28/19 06/29/19 06/29/19 05:54 13:10 17:58 WBC RBC Hgb Hct MCV MCH MCHC RDW Plt Count Lymph % (Auto) [place] % (Auto) Eos % (Auto) Lymph # [place] # Eos # Seg Neutrophils % Seg Neuts % (Manual) Lymphocytes % (Manual) Monocytes % (Manual) Eosinophils % (Manual) Nucleated RBC % Seg Neutrophils # Seg Neutrophils # Man Lymphocytes # (Manual) Monocytes # (Manual) Eosinophils # (Manual) PT INR APTT Fibrinogen POC ABG pH ABG pH POC ABG pCO2 POC ABG pO2 ABG pO2 ABG HCO3 ABG O2 Saturation ABG Base Excess ABG Hemoglobin Oxyhemoglobin Sodium Potassium Chloride Carbon Dioxide BUN Creatinine Glucose POC Glucose 107 H 115 H 108 H Uric Acid Calcium Phosphorus Magnesium Iron TIBC AST ALT Total Creatine Kinase CK-MB (CK-2) Troponin T NT-Pro-B Natriuret Pep Total Protein Albumin Triglycerides HDL Cholesterol Folate Urine WBC (Auto) Urine Creatinine Urine Total Protein Vancomycin Trough 06/30/19 06/30/19 07/01/19 12:00 18:13 05:49 WBC RBC Hgb Hct MCV MCH MCHC RDW Plt Count Lymph % (Auto) [place] % (Auto) Eos % (Auto) Lymph # [place] # Eos # Seg Neutrophils % Seg Neuts % (Manual) Lymphocytes % (Manual) Monocytes % (Manual) Eosinophils % (Manual) Nucleated RBC % Seg Neutrophils # Seg Neutrophils # Man Lymphocytes # (Manual) Monocytes # (Manual) Eosinophils # (Manual) PT INR APTT Fibrinogen POC ABG pH ABG pH POC ABG pCO2 POC ABG pO2 ABG pO2 ABG HCO3 ABG O2 Saturation ABG Base Excess ABG Hemoglobin Oxyhemoglobin Sodium Potassium Chloride Carbon Dioxide BUN Creatinine Glucose POC Glucose 108 H 114 H 114 H Uric Acid Calcium Phosphorus Magnesium Iron TIBC AST ALT Total Creatine Kinase CK-MB (CK-2) Troponin T NT-Pro-B Natriuret Pep Total Protein Albumin Triglycerides HDL Cholesterol Folate Urine WBC (Auto) Urine Creatinine Urine Total Protein Vancomycin Trough 07/01/19 07/01/19 07:58 07:58 WBC 11.5 H RBC 3.24 L Hgb 9.0 L Hct 28.4 L MCV MCH MCHC RDW 20.8 H Plt Count Lymph % (Auto) 8.3 L [place] % (Auto) 10.0 H Eos % (Auto) Lymph # 0.9 L [place] # 1.2 H Eos # Seg Neutrophils % 79.4 H Seg Neuts % (Manual) Lymphocytes % (Manual) Monocytes % (Manual) Eosinophils % (Manual) Nucleated RBC % Seg Neutrophils # 9.1 H Seg Neutrophils # Man Lymphocytes # (Manual) Monocytes # (Manual) Eosinophils # (Manual) PT INR APTT Fibrinogen POC ABG pH ABG pH POC ABG pCO2 POC ABG pO2 ABG pO2 ABG HCO3 ABG O2 Saturation ABG Base Excess ABG Hemoglobin Oxyhemoglobin Sodium Potassium Chloride Carbon Dioxide BUN Creatinine 0.4 L Glucose 130 H POC Glucose Uric Acid Calcium Phosphorus Magnesium Iron TIBC AST ALT Total Creatine Kinase CK-MB (CK-2) Troponin T NT-Pro-B Natriuret Pep Total Protein Albumin Triglycerides HDL Cholesterol Folate Urine WBC (Auto) Urine Creatinine Urine Total Protein Vancomycin Trough
--- NOTE | 2019-07-01 10:55 | Progress Note ---
Assessment and Plan /Acute respiratory failure; vent dependent/status post trach and PEG Off ventilatory support, on T-piece ,trach care, nebulizers Pulmonary critical following /Persistent fevers; leukocytosis , resolved Internal jugular tunneled hemodialysis catheter removed ID evaluated , off antibiotics /Obesity hypoventilation syndrome Status post tracheostomy, titrate O2 sats to more than 90% /Status post cardiac arrest mild anoxic brain injury patient's mentation is improved ., EEG was negative for seizures and neurology evaluated /Severe malnutrition Dysphasia; dw with his mom, she is agreeable to PEG tube, GS consulted Dietitian input appreciated, continue tube feeds /Anemia of chronic disease : Closely monitor H&H and transfuse as needed. 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 Now Patient is on Eliquis /-Acute kidney injury due to ATN : Requiring dialysis Resolved, nephrology following. /Hypernatremia/Hypokalemia/ hypomagnesemia: Resolved /Morbid obesity; will need weight loss program upon discharge /DVT prophylaxis; scd /Eliquis Plan of care discussed with the patient and his nurse Physical therapy/occupational therapy when patient is stable Disposition ; home with home health versus placement when patient is stable. Social and insurance issues. Brief History 34-year-old man with morbid obesity was brought to the hospital for shortness of breath and insomnia. He was found to have severe hypoxia and bradycardia who then became pulseless, he was cyanotic and he was intubated after receiving CPR with 2 rounds of epinephrine. Patient was intubated, extubated and reintubated, unable to wean vent dependent, underwent trach and PEG on 06/22/2019, later weaned off vent on T piece alert and awake in mild distress. Discharge Planning per case management [social/insurance issues]. Hospitalist Physical General appearance: Present: mild distress, well-nourished, obese (morbidly obese), other (tracheostomy /T-piece) - EENT Eyes: Present: PERRL, EOM intact - Neck Neck: Present: supple, normal ROM - Respiratory Respiratory effort: normal Respiratory: bilateral: diminished, rales, rhonchi, negative: wheezing - Cardiovascular Rhythm: regular Heart Sounds: Present: S1 & S2 - Extremities Extremities: no ischemia, No edema - Abdominal General gastrointestinal: soft, non-tender, non-distended, normal bowel sounds, other (PEG tube in place) - Integumentary Integumentary: Present: clear, warm - Psychiatric Psychiatric: appropriate mood/affect, cooperative - Neurologic Neurologic: moves all extremities Subjective Date of service: 07/01/19 Principal diagnosis: anemia - LOw PLT Interval history: Patient seen and examined. Medical records and medication list reviewed. No acute event overnight noted by the RN. Patient minimally responsive on mechanical ventilation with trach Discussed plan of care at bedside with patient's RN. No family member at the bedside Objective - Constitutional Vitals: Vital Signs - 12hr 06/30/19 06/30/19 07/01/19 23:00 23:02 00:00 Temperature 98.8 F Pulse Rate 101 H 103 H 88 Pulse Rate [ 91 H From Monitor] Respiratory 20 22 29 H Rate Blood Pressure 152/80 152/80 141/77 O2 Sat by Pulse 98 98 99 Oximetry O2 Sat by Pulse Oximetry [ Assessment] 07/01/19 07/01/19 07/01/19 01:00 02:00 03:00 Temperature Pulse Rate 88 93 H 93 H Pulse Rate [ From Monitor] Respiratory 24 21 22 Rate Blood Pressure 143/86 148/90 146/76 O2 Sat by Pulse 99 98 100 Oximetry O2 Sat by Pulse 98 Oximetry [ Assessment] 07/01/19 07/01/19 07/01/19 04:00 05:00 06:00 Temperature 98.4 F Pulse Rate 97 H 89 99 H Pulse Rate [ 91 H From Monitor] Respiratory 18 24 21 Rate Blood Pressure 163/98 163/98 169/85 O2 Sat by Pulse 97 98 92 Oximetry O2 Sat by Pulse Oximetry [ Assessment] 07/01/19 07/01/19 07/01/19 08:00 09:17 10:00 Temperature 100.3 F H Pulse Rate 99 H Pulse Rate [ From Monitor] Respiratory Rate Blood Pressure 134/66 O2 Sat by Pulse 98 Oximetry O2 Sat by Pulse 98 Oximetry [ Assessment] - Labs CBC & Chem 7: 07/01/19 07:58 07/01/19 07:58 Labs: Abnormal lab results 06/30/19 06/30/19 07/01/19 Range/Units 12:00 18:13 05:49 WBC (4.5-11.0) K/mm3 RBC (3.65-5.03) M/mm3 Hgb (11.8-15.2) gm/dl Hct (35.5-45.6) % RDW (13.2-15.2) % Lymph % (Auto) (13.4-35.0) % [place] % (Auto) (0.0-7.3) % Lymph # (1.2-5.4) K/mm3 [place] # (0.0-0.8) K/mm3 Seg Neutrophils % (40.0-70.0) % Seg Neutrophils # (1.8-7.7) K/mm3 Creatinine (0.8-1.5) mg/dL Glucose (75-100) mg/dL POC Glucose 108 H 114 H 114 H (70-105) 07/01/19 07/01/19 Range/Units 07:58 07:58 WBC 11.5 H (4.5-11.0) K/mm3 RBC 3.24 L (3.65-5.03) M/mm3 Hgb 9.0 L (11.8-15.2) gm/dl Hct 28.4 L (35.5-45.6) % RDW 20.8 H (13.2-15.2) % Lymph % (Auto) 8.3 L (13.4-35.0) % [place] % (Auto) 10.0 H (0.0-7.3) % Lymph # 0.9 L (1.2-5.4) K/mm3 [place] # 1.2 H (0.0-0.8) K/mm3 Seg Neutrophils % 79.4 H (40.0-70.0) % Seg Neutrophils # 9.1 H (1.8-7.7) K/mm3 Creatinine 0.4 L (0.8-1.5) mg/dL Glucose 130 H (75-100) mg/dL POC Glucose (70-105)
[2019-07-02] MEDS: INSULIN LISPRO 100 UNIT/ML SUB-Q SCH ×4 (03:00→18:29)
[2019-07-02] MEDS: fentaNYL 100 MCG/2 ML INJ IV PRN (03:01)
--- NOTE | 2019-07-02 03:21 | XRay Report ---
CHEST 1 VIEW INDICATION: trache placement. COMPARISON: 06/25/2019 FINDINGS: Support devices: Endotracheal tube tip in satisfactory position below the level the clavicles. Heart: Within normal limits. Lungs/Pleura: No acute air space or interstitial disease. Additional findings: None. IMPRESSION: 1. No acute findings. Signer Name: Santiago Ernandez MD Signed: 07/02/2019 3:17 AM Workstation Name: [id number]
[2019-07-02] MEDS ORDERED: LIDOCAINE PF 100 MG/5 ML (CARDIAC SYRINGE) IV ONE (04:30)
--- NOTE | 2019-07-02 05:33 | XRay Report ---
CHEST - 1 VIEW INDICATION: trach reinsertion COMPARISON: Earlier today FINDINGS: Support devices: Tracheostomy tube in the midline. Subcutaneous air in the neck, presumably postoper ative. Heart: Stable cardiomediastinal silhouette. Lungs/pleura: Lung bases have been excluded. There is new mild edema. Additional findings: None. IMPRESSION: 1. Support device as above. 2. Limited exam of the lungs with new mild edema. Signer Name: Santiago Ernandez MD Signed: 07/02/2019 5:28 AM Workstation Name: [id number]
--- NOTE | 2019-07-02 05:56 | Progress Note ---
Subjective Date of service: 07/02/19 Principal diagnosis: anemia - LOw PLT Interval history: called to bedside by RT @409 for assessment of tracheotomy tube placement. At bed side @421 if video bronchoscope. RT states that pt pulled out tracheotomy tube. RT reinserted tracheotomy tube, but had difficult bagging pt and spo2 dropped. Pt is stable with spontaneous breathing on face mask. Inserted Video bronchoscope through tracheotomy tube. Tracheotomy tube was not place in trachea, but was located in a soft tissue. Tracheotomy tube was pulled back and video bronchoscope was used to intubated the tracheotomy tube through the tracheotomy with visual conformation of trachea rings for confirmed placement. Pt tolerated procedure well with out any distress. out of room at 444 Objective - Constitutional Vitals: Vital Signs - 12hr 07/01/19 07/01/19 07/01/19 18:00 18:35 19:00 Temperature Pulse Rate 90 92 H 95 H Pulse Rate [ From Monitor] Respiratory 25 H 18 27 H Rate Blood Pressure 115/68 116/50 116/50 O2 Sat by Pulse 99 99 98 Oximetry O2 Sat by Pulse Oximetry [ Assessment] 07/01/19 07/01/19 07/01/19 20:00 20:24 20:30 Temperature 99.6 F Pulse Rate 100 H Pulse Rate [ 95 H From Monitor] Respiratory 21 Rate Blood Pressure 153/82 O2 Sat by Pulse 98 95 Oximetry O2 Sat by Pulse 95 Oximetry [ Assessment] 07/01/19 07/01/19 07/01/19 21:00 22:00 23:00 Temperature Pulse Rate 97 H 102 H 105 H Pulse Rate [ From Monitor] Respiratory 33 H 29 H 27 H Rate Blood Pressure 155/88 150/87 145/88 O2 Sat by Pulse 91 93 84 Oximetry O2 Sat by Pulse Oximetry [ Assessment] 07/01/19 07/02/19 07/02/19 23:16 00:00 01:00 Temperature 101 F H Pulse Rate 109 H 93 H 101 H Pulse Rate [ 95 H From Monitor] Respiratory 31 H 19 Rate Blood Pressure 145/88 145/88 129/102 O2 Sat by Pulse 93 86 Oximetry O2 Sat by Pulse Oximetry [ Assessment] 07/02/19 07/02/19 07/02/19 02:00 03:00 03:01 Temperature Pulse Rate Pulse Rate [ From Monitor] Respiratory 16 20 Rate Blood Pressure 129/102 O2 Sat by Pulse 93 100 Oximetry O2 Sat by Pulse Oximetry [ Assessment] 07/02/19 07/02/19 07/02/19 03:36 04:00 04:01 Temperature 100.9 F H Pulse Rate 103 H Pulse Rate [ 103 H From Monitor] Respiratory 13 Rate Blood Pressure 135/73 O2 Sat by Pulse 93 100 Oximetry O2 Sat by Pulse Oximetry [ Assessment] 07/02/19 07/02/19 05:00 05:10 Temperature Pulse Rate 102 H Pulse Rate [ From Monitor] Respiratory 19 Rate Blood Pressure 136/97 O2 Sat by Pulse 92 95 Oximetry O2 Sat by Pulse Oximetry [ Assessment] - Labs CBC & Chem 7: 07/01/19 07:58 07/01/19 07:58 Labs: Abnormal lab results 07/01/19 07/01/19 07/01/19 Range/Units 05:49 07:58 07:58 WBC 11.5 H (4.5-11.0) K/mm3 RBC 3.24 L (3.65-5.03) M/mm3 Hgb 9.0 L (11.8-15.2) gm/dl Hct 28.4 L (35.5-45.6) % RDW 20.8 H (13.2-15.2) % Lymph % (Auto) 8.3 L (13.4-35.0) % [place] % (Auto) 10.0 H (0.0-7.3) % Lymph # 0.9 L (1.2-5.4) K/mm3 [place] # 1.2 H (0.0-0.8) K/mm3 Seg Neutrophils % 79.4 H (40.0-70.0) % Seg Neutrophils # 9.1 H (1.8-7.7) K/mm3 Creatinine 0.4 L (0.8-1.5) mg/dL Glucose 130 H (75-100) mg/dL POC Glucose 114 H (70-105) 07/01/19 Range/Units 12:06 WBC (4.5-11.0) K/mm3 RBC (3.65-5.03) M/mm3 Hgb (11.8-15.2) gm/dl Hct (35.5-45.6) % RDW (13.2-15.2) % Lymph % (Auto) (13.4-35.0) % [place] % (Auto) (0.0-7.3) % Lymph # (1.2-5.4) K/mm3 [place] # (0.0-0.8) K/mm3 Seg Neutrophils % (40.0-70.0) % Seg Neutrophils # (1.8-7.7) K/mm3 Creatinine (0.8-1.5) mg/dL Glucose (75-100) mg/dL POC Glucose 133 H (70-105)
[2019-07-02] MEDS: POTASSIUM CHLORIDE 20 MEQ PACKET FEEDTUBE SCH (10:25)
[2019-07-02] MEDS: hydroCHLOROthiazide 25 MG TAB PO SCH (10:26)
[2019-07-02] MEDS: amLODIPine 10 MG TAB PO SCH (10:26)
[2019-07-02] MEDS: APIXABAN 2.5 MG TAB PO SCH ×2 (10:26→22:06)
[2019-07-02] MEDS: FERROUS SULFATE 308 MG (62mg Elemental Iron) / 7 ML ELIXIR PO SCH (10:26)
[2019-07-02] MEDS: predniSONE 10 MG TAB PO SCH (10:26)
[2019-07-02] MEDS: FAMOTIDINE 20 MG TAB PO SCH ×2 (10:26→22:06)
[2019-07-02] MEDS: MULTIVITAMINS 5 ML ORAL LIQUID PO SCH (10:27)
--- NOTE | 2019-07-02 10:29 | Progress Note ---
Assessment and Plan 34 y/o male with acute hypoxic, hypercapnic respiratory failure now with trach and uncontrolled hypertension. 07/02/19: Patient should not be transferred to the floor. Although his pulm status is stable, he is very high risk for decompensation and if the incident that happened last night, happened on the floor, that may have been his demise. Ok with right arm restraint for now. 07/01/2019: Continue current care. PT/OT. Work on discharge planning. steroids to 5 daily, will likely stop Friday or Friday. Stable but my concern is that if he goes to the floor, he will not get the proper suctioning needed. Will continue IMCU service 06/26/2019: Will discontinue vent from room. patient was placed on vent last night. Not sure why. Will place orders for continued T-piece. Appears he was doing well with no issues. If tolerates being off vent tonight, transition to step down tomorrow. Increase HCTZ to 25 06/25/2019: Continue T-piece today as tolerated. Only rest of vent if needed. If not needed tonight then will discontinue vent from room. Spoke with IR, and they will remove Perm cath today as this could be a cause of fevers. Follow up cultures and ID recs. Will increase Free H2O to [id number]. Change steroids to 10 PO starting tomorrow morning. Added scheduled BP meds. 06/24/2019: Will attempt T-piece later today, if tolerates, then will continue trial indefinitely. PT/OT will need to start seeing him again. Will drop steroids to 10 daily (PO) starting Friday morning. 06/23/2019: PSV all day today and tomorrow. Will start T-piece either tomorrow or Friday. Tolerating Feeds 06/22/2019: Patient scheduled for OR today. Plan as outlined in Dr. Saez's note from yesterday. Discussed with patient again this am. Really appreciate surgery help with this and the promptness of procedure. Will follow up post-op later today. 06/21/2019: Unfortunately re-intubated last week. Will need Trach and Peg, but I doubt peg will happen secondary to his size. Will discuss with surgery and maybe they can just put in a number 6 XLT from the start. I think he will get off the vent relatively quickly and can start to eat. This trach will be indefinite. I have explained this to him. I have not seen his family at the bedside during this admission but Im told they come in the evenings. 06/12/2019: Started HCTZ 50 daily and Labetalol 100 TID. Will increase Labetalol to 200 TID. Already on Clonidine patch. Continue Minoxidil. Will start to wean drip. PT/OT. Feeds through NG now that this is in place. Will need speech re-evaluation. Will order NT suctioning at least [id number] for the next 24 hours. 06/11/2019: Bipap at night and PRN. Na levels are increasing. Agree with D5W. Unable to place DH, several nurses tried. Will ask speech to come by and reasse ss now that patient is more willing to cooperate. . Continue PT/OT, sat up on side of bed yesterday. Continue IMCU monitoring for now. As stated below, patient was intubated for 37 days. CCT 31 minutes. Subjective Date of service: 07/02/19 Principal diagnosis: anemia - LOw PLT Interval history: Pulled out trach last night. Put back in by anesthesion under videography. Objective Vital Signs - 12hr 07/01/19 07/01/19 07/02/19 23:00 23:16 00:00 Temperature 101 F H Pulse Rate 105 H 109 H 93 H Pulse Rate [ 95 H From Monitor] Respiratory 27 H 31 H Rate Blood Pressure 145/88 145/88 145/88 O2 Sat by Pulse 84 93 Oximetry 07/02/19 07/02/19 07/02/19 01:00 02:00 03:00 Temperature Pulse Rate 101 H Pulse Rate [ From Monitor] Respiratory 19 16 Rate Blood Pressure 129/102 129/102 O2 Sat by Pulse 86 93 100 Oximetry 07/02/19 07/02/19 07/02/19 03:01 03:36 04:00 Temperature 100.9 F H Pulse Rate 103 H Pulse Rate [ 103 H From Monitor] Respiratory 20 13 Rate Blood Pressure O2 Sat by Pulse 93 Oximetry 07/02/19 07/02/19 07/02/19 04:01 05:00 05:10 Temperature Pulse Rate 102 H Pulse Rate [ From Monitor] Respiratory 19 Rate Blood Pressure 135/73 136/97 O2 Sat by Pulse 100 92 95 Oximetry 07/02/19 07/02/19 07/02/19 06:01 06:33 07:00 Temperature Pulse Rate 105 H 105 H 98 H Pulse Rate [ From Monitor] Respiratory 24 11 L Rate Blood Pressure 140/93 144/90 138/74 O2 Sat by Pulse 96 95 Oximetry 07/02/19 07/02/19 07/02/19 08:00 09:01 10:00 Temperature 99.2 F Pulse Rate 94 H 95 H 91 H Pulse Rate [ 94 H From Monitor] Respiratory 21 25 H 28 H Rate Blood Pressure 137/75 152/75 133/74 O2 Sat by Pulse 99 99 98 Oximetry Constitutional: other (morbidly obese male, critically ill on vent) Eyes: non-icteric ENT: oropharynx moist Neck: other (extremely large in circumference) Effort: normal Ascultation: Bilateral: diminished breath sounds (secondary to body habitus), rhonchi Cardiovascular: regular rate and rhythm (no mrg) Gastrointestinal: normoactive bowel sounds, soft, non-tender, other (obese) Integumentary: other (L hand is wrapped) Extremities: no cyanosis, pink and warm, other (1+ generalized edema) Neurologic: normal mental status, non-focal exam Psychiatric: mood appropriate, affect normal CBC and BMP: 07/01/19 07:58 07/01/19 07:58 ABG, PT/INR, D-dimer: ABG POC ABG pH 7.462 (7.35-7.45) H 06/05/19 03:52 ABG pH 7.469 pH Units (7.350-7.450) H 06/23/19 02:00 POC ABG pCO2 39.8 (35-45) 06/05/19 03:52 ABG pCO2 39.4 mm Hg 06/23/19 02:00 POC ABG pO2 86 (80-105) 06/05/19 03:52 ABG pO2 58.7 mm Hg (80.0-90.0) L 06/23/19 02:00 POC ABG HCO3 28.4 (22-26 mml/L) 06/05/19 03:52 POC ABG Total CO2 30 (23-27mmol/L) 06/05/19 03:52 POC ABG O2 Sat 97 06/05/19 03:52 ABG O2 Saturation 94.6 % (95.0-99.0) L 06/23/19 02:00 PT/INR, D-dimer PT 15.4 Sec. (12.2-14.9) H 05/01/19 Unknown INR 1.23 (0.87-1.13) H 05/01/19 Unknown Abnormal lab findings: Abnormal Labs 05/01/19 05/01/19 05/01/19 17:50 19:26 22:36 WBC RBC Hgb Hct MCV MCH MCHC RDW Plt Count Lymph % (Auto) [place] % (Auto) Eos % (Auto) Lymph # [place] # Eos # Seg Neutrophils % Seg Neuts % (Manual) Lymphocytes % (Manual) Monocytes % (Manual) Eosinophils % (Manual) Nucleated RBC % Seg Neutrophils # Seg Neutrophils # Man Lymphocytes # (Manual) Monocytes # (Manual) Eosinophils # (Manual) PT INR APTT Fibrinogen POC ABG pH 7.272 L 7.331 L ABG pH POC ABG pCO2 52.8 H POC ABG pO2 ABG pO2 ABG HCO3 ABG O2 Saturation ABG Base Excess ABG Hemoglobin Oxyhemoglobin Sodium 136 L Potassium 6.5 H* Chloride 97.2 L Carbon Dioxide BUN 60 H Creatinine Glucose 113 H POC Glucose Uric Acid Calcium Phosphorus Magnesium 2.40 H Iron TIBC AST 139 H ALT 154 H Total Creatine Kinase CK-MB (CK-2) Troponin T NT-Pro-B Natriuret Pep Total Protein Albumin 3.8 L Triglycerides HDL Cholesterol Folate Urine WBC (Auto) Urine Creatinine Urine Total Protein Vancomycin Trough 05/01/19 05/01/19 05/01/19 Unknown Unknown Unknown WBC 16.1 H RBC Hgb Hct MCV MCH MCHC RDW 17.2 H Plt Count Lymph % (Auto) [place] % (Auto) 9.6 H Eos % (Auto) Lymph # [place] # 1.5 H Eos # Seg Neutrophils % 73.0 H Seg Neuts % (Manual) Lymphocytes % (Manual) Monocytes % (Manual) Eosinophils % (Manual) Nucleated RBC % Seg Neutrophils # 11.7 H Seg Neutrophils # Man Lymphocytes # (Manual) Monocytes # (Manual) Eosinophils # (Manual) PT 15.4 H INR 1.23 H APTT 22.7 L Fibrinogen POC ABG pH ABG pH POC ABG pCO2 POC ABG pO2 ABG pO2 ABG HCO3 ABG O2 Saturation ABG Base Excess ABG Hemoglobin Oxyhemoglobin Sodium Potassium Chloride Carbon Dioxide BUN Creatinine Glucose POC Glucose Uric Acid Calcium Phosphorus Magnesium Iron TIBC AST ALT Total Creatine Kinase CK-MB (CK-2) Troponin T NT-Pro-B Natriuret Pep 6831 H Total Protein Albumin Triglycerides HDL Cholesterol Folate Urine WBC (Auto) Urine Creatinine Urine Total Protein Vancomycin Trough 05/01/19 05/02/19 05/02/19 Unknown 00:06 00:06 WBC RBC Hgb Hct MCV MCH MCHC RDW Plt Count Lymph % (Auto) [place] % (Auto) Eos % (Auto) Lymph # [place] # Eos # Seg Neutrophils % Seg Neuts % (Manual) Lymphocytes % (Manual) Monocytes % (Manual) Eosinophils % (Manual) Nucleated RBC % Seg Neutrophils # Seg Neutrophils # Man Lymphocytes # (Manual) Monocytes # (Manual) Eosinophils # (Manual) PT INR APTT Fibrinogen POC ABG pH ABG pH POC ABG pCO2 POC ABG pO2 ABG pO2 ABG HCO3 ABG O2 Saturation ABG Base Excess ABG Hemoglobin Oxyhemoglobin Sodium Potassium Chloride Carbon Dioxide BUN Creatinine Glucose POC Glucose Uric Acid Calcium Phosphorus 4.90 H Magnesium Iron TIBC AST ALT Total Creatine Kinase 226 H CK-MB (CK-2) 5.7 H Troponin T 0.044 H NT-Pro-B Natriuret Pep Total Protein Albumin Triglycerides 182 H HDL Cholesterol 18 L Folate Urine WBC (Auto) Urine Creatinine Urine Total Protein Vancomycin Trough 05/02/19 05/02/19 05/02/19 02:08 04:40 04:41 WBC 17.6 H RBC Hgb Hct MCV MCH 27 L MCHC RDW 17.4 H Plt Count Lymph % (Auto) 10.2 L [place] % (Auto) 11.0 H Eos % (Auto) Lymph # [place] # 1.9 H Eos # Seg Neutrophils % 78.0 H Seg Neuts % (Manual) Lymphocytes % (Manual) Monocytes % (Manual) Eosinophils % (Manual) Nucleated RBC % Seg Neutrophils # 13.8 H Seg Neutrophils # Man Lymphocytes # (Manual) Monocytes # (Manual) Eosinophils # (Manual) PT INR APTT Fibrinogen POC ABG pH ABG pH POC ABG pCO2 46.8 H POC ABG pO2 63 L ABG pO2 ABG HCO3 ABG O2 Saturation ABG Base Excess ABG Hemoglobin Oxyhemoglobin Sodium Potassium Chloride 96.3 L Carbon Dioxide BUN 63 H Creatinine 1.7 H Glucose POC Glucose Uric Acid Calcium Phosphorus Magnesium Iron TIBC AST ALT Total Creatine Kinase CK-MB (CK-2) Troponin T NT-Pro-B Natriuret Pep Total Protein Albumin Triglycerides HDL Cholesterol Folate Urine WBC (Auto) Urine Creatinine Urine Total Protein Vancomycin Trough 05/02/19 05/02/19 05/02/19 04:41 04:41 16:05 WBC RBC Hgb Hct MCV MCH MCHC RDW Plt Count Lymph % (Auto) [place] % (Auto) Eos % (Auto) Lymph # [place] # Eos # Seg Neutrophils % Seg Neuts % (Manual) Lymphocytes % (Manual) Monocytes % (Manual) Eosinophils % (Manual) Nucleated RBC % Seg Neutrophils # Seg Neutrophils # Man Lymphocytes # (Manual) Monocytes # (Manual) Eosinophils # (Manual) PT INR APTT Fibrinogen POC ABG pH ABG pH POC ABG pCO2 POC ABG pO2 ABG pO2 66.6 L ABG HCO3 31.9 H ABG O2 Saturation 92.5 L ABG Base Excess 5.8 H ABG Hemoglobin 13.3 L Oxyhemoglobin 90.6 L Sodium Potassium Chloride 97.2 L Carbon Dioxide BUN 61 H Creatinine 1.8 H Glucose POC Glucose Uric Acid Calcium Phosphorus Magnesium Iron TIBC AST ALT Total Creatine Kinase CK-MB (CK-2) 5.2 H Troponin T 0.067 H D NT-Pro-B Natriuret Pep Total Protein Albumin Triglycerides HDL Cholesterol Folate Urine WBC (Auto) Urine Creatinine Urine Total Protein Vancomycin Trough 05/02/19 05/03/19 05/03/19 20:39 04:35 05:05 WBC 11.8 H RBC Hgb Hct MCV MCH 27 L MCHC 31 L RDW 17.2 H Plt Count Lymph % (Auto) [place] % (Auto) Eos % (Auto) Lymph # [place] # Eos # Seg Neutrophils % Seg Neuts % (Manual) Lymphocytes % (Manual) Monocytes % (Manual) Eosinophils % (Manual) Nucleated RBC % Seg Neutrophils # Seg Neutrophils # Man Lymphocytes # (Manual) Monocytes # (Manual) Eosinophils # (Manual) PT INR APTT Fibrinogen POC ABG pH ABG pH POC ABG pCO2 53.6 H 54.0 H POC ABG pO2 55 L 63 L ABG pO2 ABG HCO3 ABG O2 Saturation ABG Base Excess ABG Hemoglobin Oxyhemoglobin Sodium Potassium Chloride Carbon Dioxide BUN Creatinine Glucose POC Glucose Uric Acid Calcium Phosphorus Magnesium Iron TIBC AST ALT Total Creatine Kinase CK-MB (CK-2) Troponin T NT-Pro-B Natriuret Pep Total Protein Albumin Triglycerides HDL Cholesterol Folate Urine WBC (Auto) Urine Creatinine Urine Total Protein Vancomycin Trough 05/03/19 05/03/19 05/03/19 05:05 10:55 16:48 WBC RBC Hgb Hct MCV MCH MCHC RDW Plt Count Lymph % (Auto) [place] % (Auto) Eos % (Auto) Lymph # [place] # Eos # Seg Neutrophils % Seg Neuts % (Manual) Lymphocytes % (Manual) Monocytes % (Manual) Eosinophils % (Manual) Nucleated RBC % Seg Neutrophils # Seg Neutrophils # Man Lymphocytes # (Manual) Monocytes # (Manual) Eosinophils # (Manual) PT INR APTT Fibrinogen POC ABG pH 7.604 H ABG pH POC ABG pCO2 POC ABG pO2 58 L ABG pO2 ABG HCO3 ABG O2 Saturation ABG Base Excess ABG Hemoglobin Oxyhemoglobin Sodium Potassium Chloride Carbon Dioxide BUN 52 H Creatinine 1.9 H Glucose 103 H POC Glucose Uric Acid Calcium Phosphorus Magnesium Iron TIBC AST ALT Total Creatine Kinase CK-MB (CK-2) Troponin T NT-Pro-B Natriuret Pep Total Protein Albumin Triglycerides HDL Cholesterol Folate Urine WBC (Auto) 33.0 H Urine Creatinine Urine Total Protein Vancomycin Trough 05/04/19 05/04/19 05/04/19 04:49 06:50 06:50 WBC 16.0 H RBC Hgb Hct MCV MCH 27 L MCHC 31 L RDW 17.8 H Plt Count Lymph % (Auto) [place] % (Auto) Eos % (Auto) Lymph # [place] # Eos # Seg Neutrophils % Seg Neuts % (Manual) Lymphocytes % (Manual) Monocytes % (Manual) Eosinophils % (Manual) Nucleated RBC % Seg Neutrophils # Seg Neutrophils # Man Lymphocytes # (Manual) Monocytes # (Manual) Eosinophils # (Manual) PT INR APTT Fibrinogen POC ABG pH 7.273 L ABG pH POC ABG pCO2 POC ABG pO2 ABG pO2 ABG HCO3 ABG O2 Saturation ABG Base Excess ABG Hemoglobin Oxyhemoglobin Sodium 148 H Potassium 5.5 H Chloride Carbon Dioxide BUN 53 H Creatinine 3.3 H D Glucose 106 H POC Glucose Uric Acid Calcium 8.3 L Phosphorus Magnesium Iron TIBC AST ALT Total Creatine Kinase CK-MB (CK-2) Troponin T NT-Pro-B Natriuret Pep Total Protein Albumin Triglycerides HDL Cholesterol Folate Urine WBC (Auto) Urine Creatinine Urine Total Protein Vancomycin Trough 05/05/19 05/05/19 05/05/19 00:05 04:30 05:00 WBC RBC Hgb Hct MCV MCH MCHC RDW Plt Count Lymph % (Auto) [place] % (Auto) Eos % (Auto) Lymph # [place] # Eos # Seg Neutrophils % Seg Neuts % (Manual) Lymphocytes % (Manual) Monocytes % (Manual) Eosinophils % (Manual) Nucleated RBC % Seg Neutrophils # Seg Neutrophils # Man Lymphocytes # (Manual) Monocytes # (Manual) Eosinophils # (Manual) PT INR APTT Fibrinogen POC ABG pH 7.225 L ABG pH POC ABG pCO2 > 70 H POC ABG pO2 ABG pO2 ABG HCO3 ABG O2 Saturation ABG Base Excess ABG Hemoglobin Oxyhemoglobin Sodium 151 H Potassium 5.1 H Chloride Carbon Dioxide BUN 64 H Creatinine 3.5 H Glucose 117 H POC Glucose 141 H Uric Acid Calcium 7.5 L Phosphorus Magnesium Iron TIBC AST 93 H ALT 65 H Total Creatine Kinase CK-MB (CK-2) Troponin T NT-Pro-B Natriuret Pep Total Protein Albumin 2.9 L Triglycerides HDL Cholesterol Folate Urine WBC (Auto) Urine Creatinine Urine Total Protein Vancomycin Trough 05/05/19 05/05/19 05/05/19 05:00 12:02 17:46 WBC 12.0 H RBC Hgb 11.3 L Hct MCV MCH 27 L MCHC 30 L RDW 18.4 H Plt Count Lymph % (Auto) 7.9 L [place] % (Auto) 10.2 H Eos % (Auto) Lymph # 1.0 L [place] # 1.2 H Eos # Seg Neutrophils % 80.8 H Seg Neuts % (Manual) Lymphocytes % (Manual) Monocytes % (Manual) Eosinophils % (Manual) Nucleated RBC % Seg Neutrophils # 9.7 H Seg Neutrophils # Man Lymphocytes # (Manual) Monocytes # (Manual) Eosinophils # (Manual) PT INR APTT Fibrinogen POC ABG pH ABG pH POC ABG pCO2 POC ABG pO2 ABG pO2 ABG HCO3 ABG O2 Saturation ABG Base Excess ABG Hemoglobin Oxyhemoglobin Sodium Potassium Chloride Carbon Dioxide BUN Creatinine Glucose POC Glucose 125 H 112 H Uric Acid Calcium Phosphorus Magnesium Iron TIBC AST ALT Total Creatine Kinase CK-MB (CK-2) Troponin T NT-Pro-B Natriuret Pep Total Protein Albumin Triglycerides HDL Cholesterol Folate Urine WBC (Auto) Urine Creatinine Urine Total Protein Vancomycin Trough 05/05/19 05/06/19 05/06/19 23:42 03:58 04:45 WBC 11.4 H RBC Hgb 10.7 L Hct 34.2 L MCV MCH 27 L MCHC 31 L RDW 16.9 H Plt Count Lymph % (Auto) [place] % (Auto) Eos % (Auto) Lymph # [place] # Eos # Seg Neutrophils % Seg Neuts % (Manual) Lymphocytes % (Manual) Monocytes % (Manual) Eosinophils % (Manual) Nucleated RBC % Seg Neutrophils # Seg Neutrophils # Man Lymphocytes # (Manual) Monocytes # (Manual) Eosinophils # (Manual) PT INR APTT Fibrinogen POC ABG pH ABG pH POC ABG pCO2 62.4 H POC ABG pO2 111 H ABG pO2 ABG HCO3 ABG O2 Saturation ABG Base Excess ABG Hemoglobin Oxyhemoglobin Sodium Potassium Chloride Carbon Dioxide BUN Creatinine Glucose POC Glucose 128 H Uric Acid Calcium Phosphorus Magnesium Iron TIBC AST ALT Total Creatine Kinase CK-MB (CK-2) Troponin T NT-Pro-B Natriuret Pep Total Protein Albumin Triglycerides HDL Cholesterol Folate Urine WBC (Auto) Urine Creatinine Urine Total Protein Vancomycin Trough 05/06/19 05/06/19 05/06/19 04:45 05:33 12:30 WBC RBC Hgb Hct MCV MCH MCHC RDW Plt Count Lymph % (Auto) [place] % (Auto) Eos % (Auto) Lymph # [place] # Eos # Seg Neutrophils % Seg Neuts % (Manual) Lymphocytes % (Manual) Monocytes % (Manual) Eosinophils % (Manual) Nucleated RBC % Seg Neutrophils # Seg Neutrophils # Man Lymphocytes # (Manual) Monocytes # (Manual) Eosinophils # (Manual) PT INR APTT Fibrinogen POC ABG pH ABG pH POC ABG pCO2 POC ABG pO2 ABG pO2 ABG HCO3 ABG O2 Saturation ABG Base Excess ABG Hemoglobin Oxyhemoglobin Sodium 149 H Potassium Chloride Carbon Dioxide 31 H BUN 67 H Creatinine 3.2 H Glucose 125 H POC Glucose 117 H 116 H Uric Acid Calcium 7.5 L Phosphorus Magnesium Iron TIBC AST ALT Total Creatine Kinase CK-MB (CK-2) Troponin T NT-Pro-B Natriuret Pep Total Protein Albumin Triglycerides HDL Cholesterol Folate Urine WBC (Auto) Urine Creatinine Urine Total Protein Vancomycin Trough 05/06/19 05/06/19 05/07/19 18:34 23:16 05:22 WBC RBC Hgb Hct MCV MCH MCHC RDW Plt Count Lymph % (Auto) [place] % (Auto) Eos % (Auto) Lymph # [place] # Eos # Seg Neutrophils % Seg Neuts % (Manual) Lymphocytes % (Manual) Monocytes % (Manual) Eosinophils % (Manual) Nucleated RBC % Seg Neutrophils # Seg Neutrophils # Man Lymphocytes # (Manual) Monocytes # (Manual) Eosinophils # (Manual) PT INR APTT Fibrinogen POC ABG pH ABG pH POC ABG pCO2 POC ABG pO2 ABG pO2 ABG HCO3 ABG O2 Saturation ABG Base Excess ABG Hemoglobin Oxyhemoglobin Sodium Potassium Chloride Carbon Dioxide BUN Creatinine Glucose POC Glucose 128 H 143 H 166 H Uric Acid Calcium Phosphorus Magnesium Iron TIBC AST ALT Total Creatine Kinase CK-MB (CK-2) Troponin T NT-Pro-B Natriuret Pep Total Protein Albumin Triglycerides HDL Cholesterol Folate Urine WBC (Auto) Urine Creatinine Urine Total Protein Vancomycin Trough 05/07/19 05/07/19 05/07/19 06:33 07:03 09:35 WBC RBC Hgb Hct MCV MCH MCHC RDW Plt Count Lymph % (Auto) [place] % (Auto) Eos % (Auto) Lymph # [place] # Eos # Seg Neutrophils % Seg Neuts % (Manual) Lymphocytes % (Manual) Monocytes % (Manual) Eosinophils % (Manual) Nucleated RBC % Seg Neutrophils # Seg Neutrophils # Man Lymphocytes # (Manual) Monocytes # (Manual) Eosinophils # (Manual) PT INR APTT Fibrinogen POC ABG pH 7.263 L 7.288 L ABG pH POC ABG pCO2 POC ABG pO2 51 L 56 L ABG pO2 ABG HCO3 ABG O2 Saturation ABG Base Excess ABG Hemoglobin Oxyhemoglobin Sodium Potassium Chloride Carbon Dioxide BUN 76 H Creatinine 3.2 H Glucose 147 H POC Glucose Uric Acid Calcium 7.9 L Phosphorus Magnesium Iron TIBC AST ALT Total Creatine Kinase CK-MB (CK-2) Troponin T NT-Pro-B Natriuret Pep Total Protein Albumin Triglycerides HDL Cholesterol Folate Urine WBC (Auto) Urine Creatinine Urine Total Protein Vancomycin Trough 05/07/19 05/07/19 05/07/19 09:35 12:17 13:45 WBC 13.4 H RBC Hgb 11.6 L Hct MCV MCH 27 L MCHC 31 L RDW 17.5 H Plt Count Lymph % (Auto) [place] % (Auto) Eos % (Auto) Lymph # [place] # Eos # Seg Neutrophils % Seg Neuts % (Manual) Lymphocytes % (Manual) Monocytes % (Manual) Eosinophils % (Manual) Nucleated RBC % Seg Neutrophils # Seg Neutrophils # Man Lymphocytes # (Manual) Monocytes # (Manual) Eosinophils # (Manual) PT INR APTT Fibrinogen POC ABG pH ABG pH POC ABG pCO2 POC ABG pO2 ABG pO2 ABG HCO3 ABG O2 Saturation ABG Base Excess ABG Hemoglobin Oxyhemoglobin Sodium Potassium Chloride Carbon Dioxide BUN Creatinine Glucose POC Glucose 130 H Uric Acid 18.0 H Calcium Phosphorus Magnesium Iron TIBC AST ALT Total Creatine Kinase CK-MB (CK-2) Troponin T NT-Pro-B Natriuret Pep Total Protein Albumin Triglycerides HDL Cholesterol Folate Urine WBC (Auto) Urine Creatinine Urine Total Protein Vancomycin Trough 05/07/19 05/07/19 05/08/19 17:39 22:40 05:06 WBC RBC Hgb Hct MCV MCH MCHC RDW Plt Count Lymph % (Auto) [place] % (Auto) Eos % (Auto) Lymph # [place] # Eos # Seg Neutrophils % Seg Neuts % (Manual) Lymphocytes % (Manual) Monocytes % (Manual) Eosinophils % (Manual) Nucleated RBC % Seg Neutrophils # Seg Neutrophils # Man Lymphocytes # (Manual) Monocytes # (Manual) Eosinophils # (Manual) PT INR APTT Fibrinogen POC ABG pH ABG pH POC ABG pCO2 POC ABG pO2 ABG pO2 ABG HCO3 ABG O2 Saturation ABG Base Excess ABG Hemoglobin Oxyhemoglobin Sodium Potassium Chloride Carbon Dioxide BUN Creatinine Glucose POC Glucose 116 H 148 H Uric Acid Calcium Phosphorus Magnesium Iron TIBC AST ALT Total Creatine Kinase CK-MB (CK-2) Troponin T NT-Pro-B Natriuret Pep Total Protein Albumin Triglycerides HDL Cholesterol Folate Urine WBC (Auto) Urine Creatinine 292.8 H Urine Total Protein 269 H Vancomycin Trough 05/08/19 05/08/19 05/08/19 05:32 11:28 13:48 WBC RBC Hgb Hct MCV MCH MCHC RDW Plt Count Lymph % (Auto) [place] % (Auto) Eos % (Auto) Lymph # [place] # Eos # Seg Neutrophils % Seg Neuts % (Manual) Lymphocytes % (Manual) Monocytes % (Manual) Eosinophils % (Manual) Nucleated RBC % Seg Neutrophils # Seg Neutrophils # Man Lymphocytes # (Manual) Monocytes # (Manual) Eosinophils # (Manual) PT INR APTT Fibrinogen POC ABG pH ABG pH POC ABG pCO2 45.4 H POC ABG pO2 64 L ABG pO2 ABG HCO3 ABG O2 Saturation ABG Base Excess ABG Hemoglobin Oxyhemoglobin Sodium Potassium Chloride Carbon Dioxide BUN 73 H Creatinine 2.7 H Glucose 127 H POC Glucose 107 H Uric Acid Calcium 7.6 L Phosphorus Magnesium Iron TIBC AST ALT Total Creatine Kinase CK-MB (CK-2) Troponin T NT-Pro-B Natriuret Pep Total Protein Albumin Triglycerides HDL Cholesterol Folate Urine WBC (Auto) Urine Creatinine Urine Total Protein Vancomycin Trough 05/08/19 05/09/19 05/09/19 17:48 04:50 04:53 WBC RBC 3.07 L Hgb 8.5 L D Hct 29.3 L D MCV 96 H MCH MCHC 29 L RDW 18.1 H Plt Count Lymph % (Auto) [place] % (Auto) Eos % (Auto) Lymph # [place] # Eos # Seg Neutrophils % Seg Neuts % (Manual) Lymphocytes % (Manual) Monocytes % (Manual) Eosinophils % (Manual) Nucleated RBC % Seg Neutrophils # Seg Neutrophils # Man Lymphocytes # (Manual) Monocytes # (Manual) Eosinophils # (Manual) PT INR APTT Fibrinogen POC ABG pH 7.316 L ABG pH POC ABG pCO2 66.0 H POC ABG pO2 69 L ABG pO2 ABG HCO3 ABG O2 Saturation ABG Base Excess ABG Hemoglobin Oxyhemoglobin Sodium Potassium Chloride Carbon Dioxide BUN Creatinine Glucose POC Glucose 155 H Uric Acid Calcium Phosphorus Magnesium Iron TIBC AST ALT Total Creatine Kinase CK-MB (CK-2) Troponin T NT-Pro-B Natriuret Pep Total Protein Albumin Triglycerides HDL Cholesterol Folate Urine WBC (Auto) Urine Creatinine Urine Total Protein Vancomycin Trough 05/09/19 05/09/19 05/09/19 05:46 07:24 12:10 WBC RBC Hgb Hct MCV MCH MCHC RDW Plt Count Lymph % (Auto) [place] % (Auto) Eos % (Auto) Lymph # [place] # Eos # Seg Neutrophils % Seg Neuts % (Manual) Lymphocytes % (Manual) Monocytes % (Manual) Eosinophils % (Manual) Nucleated RBC % Seg Neutrophils # Seg Neutrophils # Man Lymphocytes # (Manual) Monocytes # (Manual) Eosinophils # (Manual) PT INR APTT Fibrinogen POC ABG pH ABG pH POC ABG pCO2 POC ABG pO2 ABG pO2 ABG HCO3 ABG O2 Saturation ABG Base Excess ABG Hemoglobin Oxyhemoglobin Sodium Potassium Chloride Carbon Dioxide BUN 73 H Creatinine 2.4 H Glucose 153 H POC Glucose 123 H 148 H Uric Acid Calcium 8.2 L Phosphorus Magnesium Iron TIBC AST 45 H ALT Total Creatine Kinase CK-MB (CK-2) Troponin T NT-Pro-B Natriuret Pep Total Protein 6.0 L Albumin 1.9 L Triglycerides HDL Cholesterol Folate Urine WBC (Auto) Urine Creatinine Urine Total Protein Vancomycin Trough 05/09/19 05/09/19 05/10/19 18:23 23:26 04:52 WBC RBC Hgb Hct MCV MCH MCHC RDW Plt Count Lymph % (Auto) [place] % (Auto) Eos % (Auto) Lymph # [place] # Eos # Seg Neutrophils % Seg Neuts % (Manual) Lymphocytes % (Manual) Monocytes % (Manual) Eosinophils % (Manual) Nucleated RBC % Seg Neutrophils # Seg Neutrophils # Man Lymphocytes # (Manual) Monocytes # (Manual) Eosinophils # (Manual) PT INR APTT Fibrinogen POC ABG pH 7.305 L ABG pH POC ABG pCO2 62.6 H POC ABG pO2 ABG pO2 ABG HCO3 ABG O2 Saturation ABG Base Excess ABG Hemoglobin Oxyhemoglobin Sodium Potassium Chloride Carbon Dioxide BUN Creatinine Glucose POC Glucose 147 H 121 H Uric Acid Calcium Phosphorus Magnesium Iron TIBC AST ALT Total Creatine Kinase CK-MB (CK-2) Troponin T NT-Pro-B Natriuret Pep Total Protein Albumin Triglycerides HDL Cholesterol Folate Urine WBC (Auto) Urine Creatinine Urine Total Protein Vancomycin Trough 05/10/19 05/10/19 05/10/19 05:00 05:00 05:50 WBC RBC Hgb 10.3 L Hct 33.7 L MCV MCH 27 L MCHC 31 L RDW 17.0 H Plt Count Lymph % (Auto) [place] % (Auto) Eos % (Auto) Lymph # [place] # Eos # Seg Neutrophils % Seg Neuts % (Manual) Lymphocytes % (Manual) Monocytes % (Manual) Eosinophils % (Manual) Nucleated RBC % Seg Neutrophils # Seg Neutrophils # Man Lymphocytes # (Manual) Monocytes # (Manual) Eosinophils # (Manual) PT INR APTT Fibrinogen POC ABG pH ABG pH POC ABG pCO2 POC ABG pO2 ABG pO2 ABG HCO3 ABG O2 Saturation ABG Base Excess ABG Hemoglobin Oxyhemoglobin Sodium 147 H Potassium Chloride Carbon Dioxide BUN 70 H Creatinine 2.6 H Glucose 155 H POC Glucose 158 H Uric Acid Calcium 8.2 L Phosphorus Magnesium Iron TIBC AST ALT Total Creatine Kinase CK-MB (CK-2) Troponin T NT-Pro-B Natriuret Pep Total Protein 6.1 L Albumin 2.5 L Triglycerides HDL Cholesterol Folate Urine WBC (Auto) Urine Creatinine Urine Total Protein Vancomycin Trough 05/10/19 05/11/19 05/11/19 13:14 07:26 11:40 WBC RBC Hgb Hct MCV MCH MCHC RDW Plt Count Lymph % (Auto) [place] % (Auto) Eos % (Auto) Lymph # [place] # Eos # Seg Neutrophils % Seg Neuts % (Manual) Lymphocytes % (Manual) Monocytes % (Manual) Eosinophils % (Manual) Nucleated RBC % Seg Neutrophils # Seg Neutrophils # Man Lymphocytes # (Manual) Monocytes # (Manual) Eosinophils # (Manual) PT INR APTT Fibrinogen POC ABG pH ABG pH POC ABG pCO2 48.0 H POC ABG pO2 58 L ABG pO2 ABG HCO3 ABG O2 Saturation ABG Base Excess ABG Hemoglobin Oxyhemoglobin Sodium 147 H Potassium Chloride 107.2 H Carbon Dioxide BUN 67 H Creatinine 2.6 H Glucose 121 H POC Glucose 159 H Uric Acid Calcium Phosphorus Magnesium Iron TIBC AST ALT Total Creatine Kinase CK-MB (CK-2) Troponin T NT-Pro-B Natriuret Pep Total Protein Albumin Triglycerides HDL Cholesterol Folate Urine WBC (Auto) Urine Creatinine Urine Total Protein Vancomycin Trough 05/11/19 05/11/19 05/12/19 18:13 23:46 04:40 WBC RBC Hgb Hct MCV MCH MCHC RDW Plt Count Lymph % (Auto) [place] % (Auto) Eos % (Auto) Lymph # [place] # Eos # Seg Neutrophils % Seg Neuts % (Manual) Lymphocytes % (Manual) Monocytes % (Manual) Eosinophils % (Manual) Nucleated RBC % Seg Neutrophils # Seg Neutrophils # Man Lymphocytes # (Manual) Monocytes # (Manual) Eosinophils # (Manual) PT INR APTT Fibrinogen POC ABG pH ABG pH 7.264 L POC ABG pCO2 POC ABG pO2 ABG pO2 66.8 L ABG HCO3 31.0 H ABG O2 Saturation 92.0 L ABG Base Excess ABG Hemoglobin 10.3 L Oxyhemoglobin 90.1 L Sodium Potassium Chloride Carbon Dioxide BUN Creatinine Glucose POC Glucose 120 H 121 H Uric Acid Calcium Phosphorus Magnesium Iron TIBC AST ALT Total Creatine Kinase CK-MB (CK-2) Troponin T NT-Pro-B Natriuret Pep Total Protein Albumin Triglycerides HDL Cholesterol Folate Urine WBC (Auto) Urine Creatinine Urine Total Protein Vancomycin Trough 05/12/19 05/12/19 05/12/19 04:45 04:45 11:14 WBC RBC Hgb 10.2 L Hct 32.4 L MCV MCH MCHC 31 L RDW 17.2 H Plt Count Lymph % (Auto) [place] % (Auto) Eos % (Auto) Lymph # [place] # Eos # Seg Neutrophils % Seg Neuts % (Manual) Lymphocytes % (Manual) Monocytes % (Manual) Eosinophils % (Manual) Nucleated RBC % Seg Neutrophils # Seg Neutrophils # Man Lymphocytes # (Manual) Monocytes # (Manual) Eosinophils # (Manual) PT INR APTT Fibrinogen POC ABG pH 7.284 L ABG pH POC ABG pCO2 67.8 H POC ABG pO2 ABG pO2 ABG HCO3 ABG O2 Saturation ABG Base Excess ABG Hemoglobin Oxyhemoglobin Sodium Potassium Chloride Carbon Dioxide BUN 63 H Creatinine 2.4 H Glucose 110 H POC Glucose Uric Acid Calcium Phosphorus Magnesium Iron TIBC AST ALT Total Creatine Kinase CK-MB (CK-2) Troponin T NT-Pro-B Natriuret Pep Total Protein Albumin Triglycerides HDL Cholesterol Folate Urine WBC (Auto) Urine Creatinine Urine Total Protein Vancomycin Trough 05/12/19 05/12/19 05/13/19 11:44 23:11 04:30 WBC RBC Hgb Hct MCV MCH MCHC RDW Plt Count Lymph % (Auto) [place] % (Auto) Eos % (Auto) Lymph # [place] # Eos # Seg Neutrophils % Seg Neuts % (Manual) Lymphocytes % (Manual) Monocytes % (Manual) Eosinophils % (Manual) Nucleated RBC % Seg Neutrophils # Seg Neutrophils # Man Lymphocytes # (Manual) Monocytes # (Manual) Eosinophils # (Manual) PT INR APTT Fibrinogen POC ABG pH ABG pH 7.288 L POC ABG pCO2 POC ABG pO2 ABG pO2 109.7 H ABG HCO3 30.9 H ABG O2 Saturation ABG Base Excess 3.2 H ABG Hemoglobin 9.6 L Oxyhemoglobin Sodium Potassium Chloride Carbon Dioxide BUN Creatinine Glucose POC Glucose 126 H 147 H Uric Acid Calcium Phosphorus Magnesium Iron TIBC AST ALT Total Creatine Kinase CK-MB (CK-2) Troponin T NT-Pro-B Natriuret Pep Total Protein Albumin Triglycerides HDL Cholesterol Folate Urine WBC (Auto) Urine Creatinine Urine Total Protein Vancomycin Trough 05/13/19 05/13/19 05/14/19 06:27 11:58 04:00 WBC RBC 3.16 L Hgb 9.3 L Hct 27.9 L MCV MCH MCHC RDW 17.1 H Plt Count Lymph % (Auto) [place] % (Auto) Eos % (Auto) Lymph # [place] # Eos # Seg Neutrophils % Seg Neuts % (Manual) Lymphocytes % (Manual) Monocytes % (Manual) Eosinophils % (Manual) Nucleated RBC % Seg Neutrophils # Seg Neutrophils # Man Lymphocytes # (Manual) Monocytes # (Manual) Eosinophils # (Manual) PT INR APTT Fibrinogen POC ABG pH ABG pH POC ABG pCO2 POC ABG pO2 ABG pO2 ABG HCO3 ABG O2 Saturation ABG Base Excess ABG Hemoglobin Oxyhemoglobin Sodium Potassium Chloride Carbon Dioxide BUN Creatinine Glucose POC Glucose 113 H 130 H Uric Acid Calcium Phosphorus Magnesium Iron TIBC AST ALT Total Creatine Kinase CK-MB (CK-2) Troponin T NT-Pro-B Natriuret Pep Total Protein Albumin Triglycerides HDL Cholesterol Folate Urine WBC (Auto) Urine Creatinine Urine Total Protein Vancomycin Trough 05/14/19 05/14/19 05/14/19 04:00 04:34 05:32 WBC RBC Hgb Hct MCV MCH MCHC RDW Plt Count Lymph % (Auto) [place] % (Auto) Eos % (Auto) Lymph # [place] # Eos # Seg Neutrophils % Seg Neuts % (Manual) Lymphocytes % (Manual) Monocytes % (Manual) Eosinophils % (Manual) Nucleated RBC % Seg Neutrophils # Seg Neutrophils # Man Lymphocytes # (Manual) Monocytes # (Manual) Eosinophils # (Manual) PT INR APTT Fibrinogen POC ABG pH 7.328 L ABG pH POC ABG pCO2 61.7 H POC ABG pO2 ABG pO2 ABG HCO3 ABG O2 Saturation ABG Base Excess ABG Hemoglobin Oxyhemoglobin Sodium 135 L D Potassium Chloride Carbon Dioxide BUN 57 H Creatinine 2.2 H Glucose 115 H POC Glucose 115 H Uric Acid Calcium 8.1 L Phosphorus Magnesium Iron TIBC AST ALT Total Creatine Kinase CK-MB (CK-2) Troponin T NT-Pro-B Natriuret Pep Total Protein Albumin Triglycerides HDL Cholesterol Folate Urine WBC (Auto) Urine Creatinine Urine Total Protein Vancomycin Trough 05/14/19 05/15/19 05/15/19 12:11 05:10 05:24 WBC RBC Hgb Hct MCV MCH MCHC RDW Plt Count Lymph % (Auto) [place] % (Auto) Eos % (Auto) Lymph # [place] # Eos # Seg Neutrophils % Seg Neuts % (Manual) Lymphocytes % (Manual) Monocytes % (Manual) Eosinophils % (Manual) Nucleated RBC % Seg Neutrophils # Seg Neutrophils # Man Lymphocytes # (Manual) Monocytes # (Manual) Eosinophils # (Manual) PT INR APTT Fibrinogen POC ABG pH ABG pH 7.342 L POC ABG pCO2 POC ABG pO2 ABG pO2 79.1 L ABG HCO3 28.2 H ABG O2 Saturation ABG Base Excess ABG Hemoglobin 7.0 L Oxyhemoglobin 94.4 L Sodium Potassium Chloride Carbon Dioxide BUN Creatinine Glucose POC Glucose 110 H 116 H Uric Acid Calcium Phosphorus Magnesium Iron TIBC AST ALT Total Creatine Kinase CK-MB (CK-2) Troponin T NT-Pro-B Natriuret Pep Total Protein Albumin Triglycerides HDL Cholesterol Folate Urine WBC (Auto) Urine Creatinine Urine Total Protein Vancomycin Trough 05/15/19 05/15/19 05/16/19 09:00 18:12 04:50 WBC RBC Hgb Hct MCV MCH MCHC RDW Plt Count Lymph % (Auto) [place] % (Auto) Eos % (Auto) Lymph # [place] # Eos # Seg Neutrophils % Seg Neuts % (Manual) Lymphocytes % (Manual) Monocytes % (Manual) Eosinophils % (Manual) Nucleated RBC % Seg Neutrophils # Seg Neutrophils # Man Lymphocytes # (Manual) Monocytes # (Manual) Eosinophils # (Manual) PT INR APTT Fibrinogen POC ABG pH ABG pH 7.250 L POC ABG pCO2 POC ABG pO2 ABG pO2 76.4 L ABG HCO3 ABG O2 Saturation 94.6 L ABG Base Excess -3.1 L ABG Hemoglobin 9.7 L Oxyhemoglobin 92.4 L Sodium Potassium Chloride Carbon Dioxide BUN Creatinine Glucose POC Glucose 110 H Uric Acid Calcium Phosphorus Magnesium Iron TIBC AST ALT Total Creatine Kinase CK-MB (CK-2) Troponin T NT-Pro-B Natriuret Pep Total Protein Albumin Triglycerides HDL Cholesterol Folate Urine WBC (Auto) Urine Creatinine Urine Total Protein Vancomycin Trough 20.5 H 05/16/19 05/16/19 05/17/19 05:50 05:50 04:20 WBC RBC 3.36 L 3.44 L Hgb 9.4 L 9.3 L Hct 29.1 L 29.7 L MCV MCH 27 L MCHC 31 L RDW 17.6 H 17.6 H Plt Count Lymph % (Auto) [place] % (Auto) Eos % (Auto) Lymph # [place] # Eos # Seg Neutrophils % Seg Neuts % (Manual) 77.0 H Lymphocytes % (Manual) 5.0 L Monocytes % (Manual) Eosinophils % (Manual) 10.0 H Nucleated RBC % Seg Neutrophils # Seg Neutrophils # Man Lymphocytes # (Manual) 0.5 L Monocytes # (Manual) Eosinophils # (Manual) 0.9 H PT INR APTT Fibrinogen POC ABG pH ABG pH POC ABG pCO2 POC ABG pO2 ABG pO2 ABG HCO3 ABG O2 Saturation ABG Base Excess ABG Hemoglobin Oxyhemoglobin Sodium Potassium Chloride Carbon Dioxide BUN 83 H Creatinine 4.4 H D Glucose 118 H POC Glucose Uric Acid Calcium Phosphorus Magnesium Iron TIBC AST ALT Total Creatine Kinase CK-MB (CK-2) Troponin T NT-Pro-B Natriuret Pep Total Protein Albumin Triglycerides HDL Cholesterol Folate Urine WBC (Auto) Urine Creatinine Urine Total Protein Vancomycin Trough 05/17/19 05/17/19 05/18/19 04:30 Unknown 01:50 WBC RBC 3.49 L Hgb 9.4 L Hct 30.0 L MCV MCH 27 L MCHC 31 L RDW 17.8 H Plt Count Lymph % (Auto) 7.9 L [place] % (Auto) 15.4 H Eos % (Auto) 6.3 H Lymph # 0.7 L [place] # 1.4 H Eos # 0.6 H Seg Neutrophils % 70.2 H Seg Neuts % (Manual) Lymphocytes % (Manual) Monocytes % (Manual) Eosinophils % (Manual) Nucleated RBC % Seg Neutrophils # Seg Neutrophils # Man Lymphocytes # (Manual) Monocytes # (Manual) Eosinophils # (Manual) PT INR APTT Fibrinogen POC ABG pH ABG pH 7.272 L POC ABG pCO2 POC ABG pO2 ABG pO2 75.7 L ABG HCO3 ABG O2 Saturation 93.8 L ABG Base Excess -3.0 L ABG Hemoglobin 7.8 L Oxyhemoglobin 91.6 L Sodium Potassium 5.2 H Chloride Carbon Dioxide BUN 96 H Creatinine 5.7 H Glucose 112 H POC Glucose Uric Acid Calcium Phosphorus Magnesium Iron TIBC AST ALT Total Creatine Kinase CK-MB (CK-2) Troponin T NT-Pro-B Natriuret Pep Total Protein Albumin Triglycerides 173 H HDL Cholesterol Folate Urine WBC (Auto) Urine Creatinine Urine Total Protein Vancomycin Trough 12/24/19 12/24/19 12/24/19 01:50 04:41 05:24 WBC RBC Hgb Hct MCV MCH MCHC RDW Plt Count Lymph % (Auto) [place] % (Auto) Eos % (Auto) Lymph # [place] # Eos # Seg Neutrophils % Seg Neuts % (Manual) Lymphocytes % (Manual) Monocytes % (Manual) Eosinophils % (Manual) Nucleated RBC % Seg Neutrophils # Seg Neutrophils # Man Lymphocytes # (Manual) Monocytes # (Manual) Eosinophils # (Manual) PT INR APTT Fibrinogen POC ABG pH 7.260 L ABG pH POC ABG pCO2 54.9 H POC ABG pO2 ABG pO2 ABG HCO3 ABG O2 Saturation ABG Base Excess ABG Hemoglobin Oxyhemoglobin Sodium Potassium 5.6 H Chloride Carbon Dioxide BUN 104 H Creatinine 6.6 H Glucose 107 H POC Glucose 106 H Uric Acid Calcium Phosphorus Magnesium Iron TIBC AST ALT Total Creatine Kinase CK-MB (CK-2) Troponin T NT-Pro-B Natriuret Pep Total Protein Albumin Triglycerides HDL Cholesterol Folate Urine WBC (Auto) Urine Creatinine Urine Total Protein Vancomycin Trough 05/18/19 05/18/19 05/19/19 11:34 23:26 04:06 WBC RBC 3.22 L Hgb 8.8 L Hct 27.3 L MCV MCH 27 L MCHC RDW 17.5 H Plt Count Lymph % (Auto) [place] % (Auto) Eos % (Auto) Lymph # [place] # Eos # Seg Neutrophils % Seg Neuts % (Manual) 74.0 H Lymphocytes % (Manual) 4.0 L Monocytes % (Manual) 11.0 H Eosinophils % (Manual) 7.0 H Nucleated RBC % 1.0 H Seg Neutrophils # Seg Neutrophils # Man Lymphocytes # (Manual) 0.3 L Monocytes # (Manual) 0.9 H Eosinophils # (Manual) 0.6 H PT INR APTT Fibrinogen POC ABG pH ABG pH POC ABG pCO2 POC ABG pO2 ABG pO2 ABG HCO3 ABG O2 Saturation ABG Base Excess ABG Hemoglobin Oxyhemoglobin Sodium Potassium Chloride Carbon Dioxide BUN Creatinine Glucose POC Glucose 152 H 112 H Uric Acid Calcium Phosphorus Magnesium Iron TIBC AST ALT Total Creatine Kinase CK-MB (CK-2) Troponin T NT-Pro-B Natriuret Pep Total Protein Albumin Triglycerides HDL Cholesterol Folate Urine WBC (Auto) Urine Creatinine Urine Total Protein Vancomycin Trough 05/19/19 05/19/19 05/20/19 04:06 06:00 04:00 WBC RBC 3.40 L Hgb 9.2 L Hct 28.6 L MCV MCH 27 L MCHC RDW 17.6 H Plt Count Lymph % (Auto) [place] % (Auto) Eos % (Auto) Lymph # [place] # Eos # Seg Neutrophils % Seg Neuts % (Manual) Lymphocytes % (Manual) 11.0 L Monocytes % (Manual) Eosinophils % (Manual) 14.0 H Nucleated RBC % Seg Neutrophils # Seg Neutrophils # Man Lymphocytes # (Manual) 1.1 L Monocytes # (Manual) Eosinophils # (Manual) 1.4 H PT INR APTT Fibrinogen POC ABG pH ABG pH 7.315 L POC ABG pCO2 POC ABG pO2 ABG pO2 ABG HCO3 ABG O2 Saturation ABG Base Excess ABG Hemoglobin 6.7 L Oxyhemoglobin 94.1 L Sodium Potassium 5.2 H Chloride Carbon Dioxide 21 L BUN 110 H Creatinine 7.2 H Glucose POC Glucose Uric Acid Calcium 8.3 L Phosphorus Magnesium Iron TIBC AST ALT Total Creatine Kinase CK-MB (CK-2) Troponin T NT-Pro-B Natriuret Pep Total Protein Albumin Triglycerides HDL Cholesterol Folate Urine WBC (Auto) Urine Creatinine Urine Total Protein Vancomycin Trough 05/20/19 05/20/19 05/20/19 04:00 05:48 12:00 WBC RBC Hgb Hct MCV MCH MCHC RDW Plt Count Lymph % (Auto) [place] % (Auto) Eos % (Auto) Lymph # [place] # Eos # Seg Neutrophils % Seg Neuts % (Manual) Lymphocytes % (Manual) Monocytes % (Manual) Eosinophils % (Manual) Nucleated RBC % Seg Neutrophils # Seg Neutrophils # Man Lymphocytes # (Manual) Monocytes # (Manual) Eosinophils # (Manual) PT INR APTT Fibrinogen POC ABG pH ABG pH 7.281 L POC ABG pCO2 POC ABG pO2 ABG pO2 78.7 L ABG HCO3 ABG O2 Saturation 94.5 L ABG Base Excess -3.0 L ABG Hemoglobin 9.9 L Oxyhemoglobin 92.5 L Sodium 136 L Potassium 5.7 H Chloride 96.3 L Carbon Dioxide BUN 125 H Creatinine 8.3 H Glucose 106 H POC Glucose Uric Acid Calcium Phosphorus Magnesium Iron TIBC AST ALT Total Creatine Kinase CK-MB (CK-2) Troponin T NT-Pro-B Natriuret Pep Total Protein Albumin Triglycerides HDL Cholesterol Folate Urine WBC (Auto) 26.0 H Urine Creatinine Urine Total Protein Vancomycin Trough 05/21/19 05/21/19 05/21/19 04:33 05:20 Unknown WBC RBC 3.38 L Hgb 9.1 L Hct 28.5 L MCV MCH 27 L MCHC RDW 17.4 H Plt Count Lymph % (Auto) [place] % (Auto) Eos % (Auto) Lymph # [place] # Eos # Seg Neutrophils % Seg Neuts % (Manual) 71.0 H Lymphocytes % (Manual) 1.0 L Monocytes % (Manual) 11.0 H Eosinophils % (Manual) 6.0 H Nucleated RBC % Seg Neutrophils # Seg Neutrophils # Man Lymphocytes # (Manual) 0.1 L Monocytes # (Manual) 1.0 H Eosinophils # (Manual) 0.6 H PT INR APTT Fibrinogen POC ABG pH 7.315 L ABG pH POC ABG pCO2 57.8 H POC ABG pO2 68 L ABG pO2 ABG HCO3 ABG O2 Saturation ABG Base Excess ABG Hemoglobin Oxyhemoglobin Sodium Potassium Chloride 96.3 L Carbon Dioxide BUN 102 H Creatinine 7.0 H Glucose 103 H POC Glucose Uric Acid Calcium Phosphorus Magnesium Iron TIBC AST ALT Total Creatine Kinase CK-MB (CK-2) Troponin T NT-Pro-B Natriuret Pep Total Protein Albumin Triglycerides HDL Cholesterol Folate Urine WBC (Auto) Urine Creatinine Urine Total Protein Vancomycin Trough 05/22/19 05/22/19 05/22/19 03:54 06:25 06:25 WBC RBC 3.22 L Hgb 8.6 L Hct 27.0 L MCV MCH 27 L MCHC RDW 17.5 H Plt Count Lymph % (Auto) [place] % (Auto) 16.2 H Eos % (Auto) 10.8 H Lymph # [place] # 1.3 H Eos # 0.9 H Seg Neutrophils % Seg Neuts % (Manual) Lymphocytes % (Manual) 10.0 L Monocytes % (Manual) 13.0 H Eosinophils % (Manual) 8.0 H Nucleated RBC % Seg Neutrophils # Seg Neutrophils # Man Lymphocytes # (Manual) 0.9 L Monocytes # (Manual) 1.1 H Eosinophils # (Manual) 0.7 H PT INR APTT Fibrinogen POC ABG pH 7.313 L ABG pH POC ABG pCO2 55.0 H POC ABG pO2 ABG pO2 ABG HCO3 ABG O2 Saturation ABG Base Excess ABG Hemoglobin Oxyhemoglobin Sodium 135 L Potassium Chloride 94.3 L Carbon Dioxide BUN 117 H Creatinine 7.8 H Glucose POC Glucose Uric Acid Calcium 8.2 L Phosphorus Magnesium Iron TIBC AST ALT Total Creatine Kinase CK-MB (CK-2) Troponin T NT-Pro-B Natriuret Pep Total Protein Albumin Triglycerides HDL Cholesterol Folate Urine WBC (Auto) Urine Creatinine Urine Total Protein Vancomycin Trough 05/23/19 05/24/19 05/24/19 05:21 05:00 05:00 WBC RBC 3.18 L Hgb 8.5 L Hct 26.7 L MCV MCH 27 L MCHC RDW 17.9 H Plt Count Lymph % (Auto) [place] % (Auto) Eos % (Auto) Lymph # [place] # Eos # Seg Neutrophils % Seg Neuts % (Manual) Lymphocytes % (Manual) Monocytes % (Manual) Eosinophils % (Manual) Nucleated RBC % Seg Neutrophils # Seg Neutrophils # Man Lymphocytes # (Manual) Monocytes # (Manual) Eosinophils # (Manual) PT INR APTT Fibrinogen POC ABG pH ABG pH POC ABG pCO2 49.7 H POC ABG pO2 73 L ABG pO2 ABG HCO3 ABG O2 Saturation ABG Base Excess ABG Hemoglobin Oxyhemoglobin Sodium Potassium Chloride 95.7 L Carbon Dioxide BUN 97 H Creatinine 6.5 H Glucose POC Glucose Uric Acid Calcium 8.0 L Phosphorus Magnesium Iron TIBC AST ALT Total Creatine Kinase CK-MB (CK-2) Troponin T NT-Pro-B Natriuret Pep Total Protein Albumin Triglycerides HDL Cholesterol Folate Urine WBC (Auto) Urine Creatinine Urine Total Protein Vancomycin Trough 05/24/19 05/25/19 05/25/19 06:17 04:22 15:45 WBC RBC 2.98 L Hgb 8.1 L Hct 24.9 L MCV MCH 27 L MCHC RDW 17.8 H Plt Count Lymph % (Auto) [place] % (Auto) Eos % (Auto) Lymph # [place] # Eos # Seg Neutrophils % Seg Neuts % (Manual) Lymphocytes % (Manual) Monocytes % (Manual) Eosinophils % (Manual) Nucleated RBC % Seg Neutrophils # Seg Neutrophils # Man Lymphocytes # (Manual) Monocytes # (Manual) Eosinophils # (Manual) PT INR APTT Fibrinogen POC ABG pH 7.330 L 7.313 L ABG pH POC ABG pCO2 52.5 H 51.1 H POC ABG pO2 77 L ABG pO2 ABG HCO3 ABG O2 Saturation ABG Base Excess ABG Hemoglobin Oxyhemoglobin Sodium Potassium Chloride Carbon Dioxide BUN Creatinine Glucose POC Glucose Uric Acid Calcium Phosphorus Magnesium Iron TIBC AST ALT Total Creatine Kinase CK-MB (CK-2) Troponin T NT-Pro-B Natriuret Pep Total Protein Albumin Triglycerides HDL Cholesterol Folate Urine WBC (Auto) Urine Creatinine Urine Total Protein Vancomycin Trough 05/25/19 05/26/19 05/26/19 15:45 04:13 05:00 WBC RBC 3.10 L Hgb 8.4 L Hct 26.0 L MCV MCH 27 L MCHC RDW 17.4 H Plt Count Lymph % (Auto) [place] % (Auto) Eos % (Auto) Lymph # [place] # Eos # Seg Neutrophils % Seg Neuts % (Manual) Lymphocytes % (Manual) Monocytes % (Manual) Eosinophils % (Manual) Nucleated RBC % Seg Neutrophils # Seg Neutrophils # Man Lymphocytes # (Manual) Monocytes # (Manual) Eosinophils # (Manual) PT INR APTT Fibrinogen POC ABG pH 7.295 L ABG pH POC ABG pCO2 56.5 H POC ABG pO2 63 L ABG pO2 ABG HCO3 ABG O2 Saturation ABG Base Excess ABG Hemoglobin Oxyhemoglobin Sodium 136 L Potassium Chloride 96.8 L Carbon Dioxide BUN 83 H Creatinine 5.9 H Glucose POC Glucose Uric Acid Calcium 7.6 L Phosphorus Magnesium Iron TIBC AST ALT Total Creatine Kinase CK-MB (CK-2) Troponin T NT-Pro-B Natriuret Pep Total Protein Albumin Triglycerides HDL Cholesterol Folate Urine WBC (Auto) Urine Creatinine Urine Total Protein Vancomycin Trough 05/26/19 05/27/19 05/28/19 05:00 04:48 04:47 WBC RBC Hgb Hct MCV MCH MCHC RDW Plt Count Lymph % (Auto) [place] % (Auto) Eos % (Auto) Lymph # [place] # Eos # Seg Neutrophils % Seg Neuts % (Manual) Lymphocytes % (Manual) Monocytes % (Manual) Eosinophils % (Manual) Nucleated RBC % Seg Neutrophils # Seg Neutrophils # Man Lymphocytes # (Manual) Monocytes # (Manual) Eosinophils # (Manual) PT INR APTT Fibrinogen POC ABG pH 7.323 L ABG pH 7.284 L POC ABG pCO2 56.2 H POC ABG pO2 ABG pO2 71.6 L ABG HCO3 ABG O2 Saturation 92.0 L ABG Base Excess ABG Hemoglobin 7.7 L Oxyhemoglobin 89.9 L Sodium 136 L Potassium Chloride 95.3 L Carbon Dioxide BUN 96 H Creatinine 6.5 H Glucose 108 H POC Glucose Uric Acid Calcium 7.6 L Phosphorus Magnesium Iron TIBC AST ALT Total Creatine Kinase CK-MB (CK-2) Troponin T NT-Pro-B Natriuret Pep Total Protein Albumin Triglycerides HDL Cholesterol Folate Urine WBC (Auto) Urine Creatinine Urine Total Protein Vancomycin Trough 05/28/19 05/29/19 05/29/19 12:30 12:47 23:44 WBC RBC Hgb Hct MCV MCH MCHC RDW Plt Count Lymph % (Auto) [place] % (Auto) Eos % (Auto) Lymph # [place] # Eos # Seg Neutrophils % Seg Neuts % (Manual) Lymphocytes % (Manual) Monocytes % (Manual) Eosinophils % (Manual) Nucleated RBC % Seg Neutrophils # Seg Neutrophils # Man Lymphocytes # (Manual) Monocytes # (Manual) Eosinophils # (Manual) PT INR APTT Fibrinogen POC ABG pH ABG pH POC ABG pCO2 POC ABG pO2 ABG pO2 ABG HCO3 ABG O2 Saturation ABG Base Excess ABG Hemoglobin Oxyhemoglobin Sodium 135 L Potassium Chloride 95.3 L Carbon Dioxide BUN 82 H Creatinine 6.0 H Glucose POC Glucose 136 H 159 H Uric Acid Calcium 7.5 L Phosphorus Magnesium Iron TIBC AST ALT Total Creatine Kinase CK-MB (CK-2) Troponin T NT-Pro-B Natriuret Pep Total Protein Albumin Triglycerides HDL Cholesterol Folate Urine WBC (Auto) Urine Creatinine Urine Total Protein Vancomycin Trough 05/30/19 05/30/19 05/30/19 04:30 05:38 12:00 WBC RBC 3.01 L Hgb 8.2 L Hct 25.3 L MCV MCH 27 L MCHC RDW 17.5 H Plt Count Lymph % (Auto) [place] % (Auto) Eos % (Auto) Lymph # [place] # Eos # Seg Neutrophils % Seg Neuts % (Manual) 80.0 H Lymphocytes % (Manual) 10.0 L Monocytes % (Manual) Eosinophils % (Manual) Nucleated RBC % Seg Neutrophils # Seg Neutrophils # Man 8.0 H Lymphocytes # (Manual) 1.0 L Monocytes # (Manual) Eosinophils # (Manual) PT INR APTT Fibrinogen POC ABG pH ABG pH POC ABG pCO2 POC ABG pO2 73 L ABG pO2 ABG HCO3 ABG O2 Saturation ABG Base Excess ABG Hemoglobin Oxyhemoglobin Sodium Potassium Chloride Carbon Dioxide BUN Creatinine Glucose POC Glucose 166 H Uric Acid Calcium Phosphorus Magnesium Iron TIBC AST ALT Total Creatine Kinase CK-MB (CK-2) Troponin T NT-Pro-B Natriuret Pep Total Protein Albumin Triglycerides HDL Cholesterol Folate Urine WBC (Auto) Urine Creatinine Urine Total Protein Vancomycin Trough 05/30/19 05/31/19 05/31/19 23:45 04:07 13:04 WBC 14.3 H RBC 2.88 L Hgb 7.7 L Hct 23.9 L MCV 83 L MCH 27 L MCHC RDW 17.8 H Plt Count Lymph % (Auto) [place] % (Auto) Eos % (Auto) Lymph # [place] # Eos # Seg Neutrophils % Seg Neuts % (Manual) 83.0 H Lymphocytes % (Manual) 11.0 L Monocytes % (Manual) Eosinophils % (Manual) Nucleated RBC % Seg Neutrophils # Seg Neutrophils # Man 11.9 H Lymphocytes # (Manual) Monocytes # (Manual) 0.9 H Eosinophils # (Manual) PT INR APTT Fibrinogen POC ABG pH ABG pH POC ABG pCO2 47.4 H POC ABG pO2 ABG pO2 ABG HCO3 ABG O2 Saturation ABG Base Excess ABG Hemoglobin Oxyhemoglobin Sodium Potassium Chloride Carbon Dioxide BUN Creatinine Glucose POC Glucose 209 H Uric Acid Calcium Phosphorus Magnesium Iron TIBC AST ALT Total Creatine Kinase CK-MB (CK-2) Troponin T NT-Pro-B Natriuret Pep Total Protein Albumin Triglycerides HDL Cholesterol Folate Urine WBC (Auto) Urine Creatinine Urine Total Protein Vancomycin Trough 05/31/19 05/31/19 06/01/19 13:04 16:42 00:15 WBC RBC Hgb Hct MCV MCH MCHC RDW Plt Count Lymph % (Auto) [place] % (Auto) Eos % (Auto) Lymph # [place] # Eos # Seg Neutrophils % Seg Neuts % (Manual) Lymphocytes % (Manual) Monocytes % (Manual) Eosinophils % (Manual) Nucleated RBC % Seg Neutrophils # Seg Neutrophils # Man Lymphocytes # (Manual) Monocytes # (Manual) Eosinophils # (Manual) PT INR APTT Fibrinogen POC ABG pH ABG pH POC ABG pCO2 POC ABG pO2 ABG pO2 ABG HCO3 ABG O2 Saturation ABG Base Excess ABG Hemoglobin Oxyhemoglobin Sodium 129 L Potassium Chloride 88.6 L Carbon Dioxide 19 L BUN 117 H Creatinine 6.7 H Glucose 205 H POC Glucose 228 H 223 H Uric Acid Calcium 7.4 L Phosphorus 7.40 H Magnesium Iron TIBC AST 58 H ALT 149 H Total Creatine Kinase CK-MB (CK-2) Troponin T NT-Pro-B Natriuret Pep Total Protein 6.0 L Albumin 2.5 L Triglycerides HDL Cholesterol Folate Urine WBC (Auto) Urine Creatinine Urine Total Protein Vancomycin Trough 06/01/19 06/01/19 06/01/19 04:33 05:27 12:31 WBC RBC Hgb Hct MCV MCH MCHC RDW Plt Count Lymph % (Auto) [place] % (Auto) Eos % (Auto) Lymph # [place] # Eos # Seg Neutrophils % Seg Neuts % (Manual) Lymphocytes % (Manual) Monocytes % (Manual) Eosinophils % (Manual) Nucleated RBC % Seg Neutrophils # Seg Neutrophils # Man Lymphocytes # (Manual) Monocytes # (Manual) Eosinophils # (Manual) PT INR APTT Fibrinogen POC ABG pH ABG pH POC ABG pCO2 POC ABG pO2 ABG pO2 56.9 L ABG HCO3 ABG O2 Saturation 85.9 L ABG Base Excess ABG Hemoglobin 8.1 L Oxyhemoglobin 83.6 L Sodium Potassium Chloride Carbon Dioxide BUN Creatinine Glucose POC Glucose 183 H 217 H Uric Acid Calcium Phosphorus Magnesium Iron TIBC AST ALT Total Creatine Kinase CK-MB (CK-2) Troponin T NT-Pro-B Natriuret Pep Total Protein Albumin Triglycerides HDL Cholesterol Folate Urine WBC (Auto) Urine Creatinine Urine Total Protein Vancomycin Trough 06/01/19 06/02/19 06/02/19 18:20 00:00 05:33 WBC RBC Hgb Hct MCV MCH MCHC RDW Plt Count Lymph % (Auto) [place] % (Auto) Eos % (Auto) Lymph # [place] # Eos # Seg Neutrophils % Seg Neuts % (Manual) Lymphocytes % (Manual) Monocytes % (Manual) Eosinophils % (Manual) Nucleated RBC % Seg Neutrophils # Seg Neutrophils # Man Lymphocytes # (Manual) Monocytes # (Manual) Eosinophils # (Manual) PT INR APTT Fibrinogen POC ABG pH ABG pH POC ABG pCO2 POC ABG pO2 ABG pO2 ABG HCO3 ABG O2 Saturation ABG Base Excess ABG Hemoglobin Oxyhemoglobin Sodium Potassium Chloride Carbon Dioxide BUN Creatinine Glucose POC Glucose 265 H 279 H 259 H Uric Acid Calcium Phosphorus Magnesium Iron TIBC AST ALT Total Creatine Kinase CK-MB (CK-2) Troponin T NT-Pro-B Natriuret Pep Total Protein Albumin Triglycerides HDL Cholesterol Folate Urine WBC (Auto) Urine Creatinine Urine Total Protein Vancomycin Trough 06/02/19 06/02/1906/02/20 11:06 11:06 11:42 WBC 13.1 H RBC 2.92 L Hgb 7.9 L Hct 24.4 L MCV MCH 27 L MCHC RDW 17.4 H Plt Count Lymph % (Auto) [place] % (Auto) Eos % (Auto) Lymph # [place] # Eos # Seg Neutrophils % Seg Neuts % (Manual) 78.0 H Lymphocytes % (Manual) 12.0 L Monocytes % (Manual) 10.0 H Eosinophils % (Manual) Nucleated RBC % Seg Neutrophils # Seg Neutrophils # Man 10.2 H Lymphocytes # (Manual) Monocytes # (Manual) 1.3 H Eosinophils # (Manual) PT INR APTT Fibrinogen POC ABG pH ABG pH POC ABG pCO2 POC ABG pO2 ABG pO2 ABG HCO3 ABG O2 Saturation ABG Base Excess ABG Hemoglobin Oxyhemoglobin Sodium 135 L Potassium Chloride 94.7 L Carbon Dioxide 21 L BUN 107 H Creatinine 4.5 H Glucose 286 H POC Glucose 263 H Uric Acid Calcium 7.9 L Phosphorus 6.30 H Magnesium Iron TIBC AST ALT 104 H Total Creatine Kinase CK-MB (CK-2) Troponin T NT-Pro-B Natriuret Pep Total Protein 6.0 L Albumin 2.7 L Triglycerides HDL Cholesterol Folate Urine WBC (Auto) Urine Creatinine Urine Total Protein Vancomycin Trough 06/02/19 06/02/19 06/03/19 18:17 23:55 05:30 WBC RBC Hgb Hct MCV MCH MCHC RDW Plt Count Lymph % (Auto) [place] % (Auto) Eos % (Auto) Lymph # [place] # Eos # Seg Neutrophils % Seg Neuts % (Manual) Lymphocytes % (Manual) Monocytes % (Manual) Eosinophils % (Manual) Nucleated RBC % Seg Neutrophils # Seg Neutrophils # Man Lymphocytes # (Manual) Monocytes # (Manual) Eosinophils # (Manual) PT INR APTT Fibrinogen POC ABG pH ABG pH POC ABG pCO2 POC ABG pO2 ABG pO2 ABG HCO3 ABG O2 Saturation ABG Base Excess ABG Hemoglobin Oxyhemoglobin Sodium Potassium Chloride 95.1 L Carbon Dioxide 21 L BUN 119 H Creatinine 4.1 H Glucose 330 H POC Glucose 276 H 244 H Uric Acid Calcium 8.1 L Phosphorus Magnesium Iron TIBC AST ALT 98 H Total Creatine Kinase CK-MB (CK-2) Troponin T NT-Pro-B Natriuret Pep Total Protein 5.8 L Albumin 2.8 L Triglycerides HDL Cholesterol Folate Urine WBC (Auto) Urine Creatinine Urine Total Protein Vancomycin Trough 06/03/19 06/03/19 06/03/19 05:30 06:04 09:42 WBC 12.8 H RBC 3.01 L Hgb 8.2 L Hct 25.4 L MCV MCH 27 L MCHC RDW 17.5 H Plt Count Lymph % (Auto) [place] % (Auto) Eos % (Auto) Lymph # [place] # Eos # Seg Neutrophils % Seg Neuts % (Manual) 78.0 H Lymphocytes % (Manual) 10.0 L Monocytes % (Manual) 12.0 H Eosinophils % (Manual) Nucleated RBC % Seg Neutrophils # Seg Neutrophils # Man 10.0 H Lymphocytes # (Manual) Monocytes # (Manual) 1.5 H Eosinophils # (Manual) PT INR APTT Fibrinogen POC ABG pH ABG pH POC ABG pCO2 POC ABG pO2 ABG pO2 ABG HCO3 ABG O2 Saturation ABG Base Excess ABG Hemoglobin Oxyhemoglobin Sodium Potassium Chloride Carbon Dioxide BUN 106 H Creatinine Glucose POC Glucose 254 H Uric Acid Calcium Phosphorus Magnesium Iron TIBC AST ALT Total Creatine Kinase CK-MB (CK-2) Troponin T NT-Pro-B Natriuret Pep Total Protein Albumin Triglycerides HDL Cholesterol Folate Urine WBC (Auto) Urine Creatinine Urine Total Protein Vancomycin Trough 06/03/19 06/03/19 06/03/19 12:52 17:25 23:37 WBC RBC Hgb Hct MCV MCH MCHC RDW Plt Count Lymph % (Auto) [place] % (Auto) Eos % (Auto) Lymph # [place] # Eos # Seg Neutrophils % Seg Neuts % (Manual) Lymphocytes % (Manual) Monocytes % (Manual) Eosinophils % (Manual) Nucleated RBC % Seg Neutrophils # Seg Neutrophils # Man Lymphocytes # (Manual) Monocytes # (Manual) Eosinophils # (Manual) PT INR APTT Fibrinogen POC ABG pH ABG pH POC ABG pCO2 POC ABG pO2 ABG pO2 ABG HCO3 ABG O2 Saturation ABG Base Excess ABG Hemoglobin Oxyhemoglobin Sodium Potassium Chloride Carbon Dioxide BUN Creatinine Glucose POC Glucose 274 H 285 H 310 H Uric Acid Calcium Phosphorus Magnesium Iron TIBC AST ALT Total Creatine Kinase CK-MB (CK-2) Troponin T NT-Pro-B Natriuret Pep Total Protein Albumin Triglycerides HDL Cholesterol Folate Urine WBC (Auto) Urine Creatinine Urine Total Protein Vancomycin Trough 06/04/19 06/04/19 06/04/19 04:57 05:03 11:50 WBC RBC Hgb Hct MCV MCH MCHC RDW Plt Count Lymph % (Auto) [place] % (Auto) Eos % (Auto) Lymph # [place] # Eos # Seg Neutrophils % Seg Neuts % (Manual) Lymphocytes % (Manual) Monocytes % (Manual) Eosinophils % (Manual) Nucleated RBC % Seg Neutrophils # Seg Neutrophils # Man Lymphocytes # (Manual) Monocytes # (Manual) Eosinophils # (Manual) PT INR APTT Fibrinogen POC ABG pH 7.488 H ABG pH POC ABG pCO2 POC ABG pO2 ABG pO2 ABG HCO3 ABG O2 Saturation ABG Base Excess ABG Hemoglobin Oxyhemoglobin Sodium Potassium Chloride Carbon Dioxide BUN Creatinine Glucose POC Glucose 275 H 279 H Uric Acid Calcium Phosphorus Magnesium Iron TIBC AST ALT Total Creatine Kinase CK-MB (CK-2) Troponin T NT-Pro-B Natriuret Pep Total Protein Albumin Triglycerides HDL Cholesterol Folate Urine WBC (Auto) Urine Creatinine Urine Total Protein Vancomycin Trough 06/04/19 06/04/19 06/04/19 18:32 22:03 23:55 WBC RBC Hgb Hct MCV MCH MCHC RDW Plt Count Lymph % (Auto) [place] % (Auto) Eos % (Auto) Lymph # [place] # Eos # Seg Neutrophils % Seg Neuts % (Manual) Lymphocytes % (Manual) Monocytes % (Manual) Eosinophils % (Manual) Nucleated RBC % Seg Neutrophils # Seg Neutrophils # Man Lymphocytes # (Manual) Monocytes # (Manual) Eosinophils # (Manual) PT INR APTT Fibrinogen POC ABG pH ABG pH POC ABG pCO2 POC ABG pO2 ABG pO2 ABG HCO3 ABG O2 Saturation ABG Base Excess ABG Hemoglobin Oxyhemoglobin Sodium Potassium Chloride Carbon Dioxide BUN Creatinine Glucose POC Glucose 267 H 307 H 292 H Uric Acid Calcium Phosphorus Magnesium Iron TIBC AST ALT Total Creatine Kinase CK-MB (CK-2) Troponin T NT-Pro-B Natriuret Pep Total Protein Albumin Triglycerides HDL Cholesterol Folate Urine WBC (Auto) Urine Creatinine Urine Total Protein Vancomycin Trough 06/05/19 06/05/19 06/05/19 03:52 06:41 12:29 WBC RBC Hgb Hct MCV MCH MCHC RDW Plt Count Lymph % (Auto) [place] % (Auto) Eos % (Auto) Lymph # [place] # Eos # Seg Neutrophils % Seg Neuts % (Manual) Lymphocytes % (Manual) Monocytes % (Manual) Eosinophils % (Manual) Nucleated RBC % Seg Neutrophils # Seg Neutrophils # Man Lymphocytes # (Manual) Monocytes # (Manual) Eosinophils # (Manual) PT INR APTT Fibrinogen POC ABG pH 7.462 H ABG pH POC ABG pCO2 POC ABG pO2 ABG pO2 ABG HCO3 ABG O2 Saturation ABG Base Excess ABG Hemoglobin Oxyhemoglobin Sodium Potassium Chloride Carbon Dioxide BUN Creatinine Glucose POC Glucose 369 H 265 H Uric Acid Calcium Phosphorus Magnesium Iron TIBC AST ALT Total Creatine Kinase CK-MB (CK-2) Troponin T NT-Pro-B Natriuret Pep Total Protein Albumin Triglycerides HDL Cholesterol Folate Urine WBC (Auto) Urine Creatinine Urine Total Protein Vancomycin Trough 06/05/19 06/05/19 06/05/19 18:20 21:42 23:21 WBC RBC Hgb Hct MCV MCH MCHC RDW Plt Count Lymph % (Auto) [place] % (Auto) Eos % (Auto) Lymph # [place] # Eos # Seg Neutrophils % Seg Neuts % (Manual) Lymphocytes % (Manual) Monocytes % (Manual) Eosinophils % (Manual) Nucleated RBC % Seg Neutrophils # Seg Neutrophils # Man Lymphocytes # (Manual) Monocytes # (Manual) Eosinophils # (Manual) PT INR APTT Fibrinogen POC ABG pH ABG pH POC ABG pCO2 POC ABG pO2 ABG pO2 ABG HCO3 ABG O2 Saturation ABG Base Excess ABG Hemoglobin Oxyhemoglobin Sodium Potassium Chloride Carbon Dioxide BUN Creatinine Glucose POC Glucose 249 H 246 H 274 H Uric Acid Calcium Phosphorus Magnesium Iron TIBC AST ALT Total Creatine Kinase CK-MB (CK-2) Troponin T NT-Pro-B Natriuret Pep Total Protein Albumin Triglycerides HDL Cholesterol Folate Urine WBC (Auto) Urine Creatinine Urine Total Protein Vancomycin Trough 06/06/19 06/06/19 06/06/19 04:00 05:49 11:34 WBC 18.1 H RBC 3.53 L Hgb 9.5 L Hct 30.3 L MCV MCH 27 L MCHC 31 L RDW 19.5 H Plt Count Lymph % (Auto) [place] % (Auto) Eos % (Auto) Lymph # [place] # Eos # Seg Neutrophils % Seg Neuts % (Manual) 87.0 H Lymphocytes % (Manual) 3.0 L Monocytes % (Manual) 8.0 H Eosinophils % (Manual) Nucleated RBC % Seg Neutrophils # Seg Neutrophils # Man 15.7 H Lymphocytes # (Manual) 0.5 L Monocytes # (Manual) 1.4 H Eosinophils # (Manual) PT INR APTT Fibrinogen POC ABG pH ABG pH 7.472 H POC ABG pCO2 POC ABG pO2 ABG pO2 76.4 L ABG HCO3 28.1 H ABG O2 Saturation ABG Base Excess 4.3 H ABG Hemoglobin 12.5 L Oxyhemoglobin 93.8 L Sodium Potassium Chloride Carbon Dioxide BUN Creatinine Glucose POC Glucose 340 H Uric Acid Calcium Phosphorus Magnesium Iron TIBC AST ALT Total Creatine Kinase CK-MB (CK-2) Troponin T NT-Pro-B Natriuret Pep Total Protein Albumin Triglycerides HDL Cholesterol Folate Urine WBC (Auto) Urine Creatinine Urine Total Protein Vancomycin Trough 06/06/19 06/06/19 06/06/19 11:34 12:11 18:10 WBC RBC Hgb Hct MCV MCH MCHC RDW Plt Count Lymph % (Auto) [place] % (Auto) Eos % (Auto) Lymph # [place] # Eos # Seg Neutrophils % Seg Neuts % (Manual) Lymphocytes % (Manual) Monocytes % (Manual) Eosinophils % (Manual) Nucleated RBC % Seg Neutrophils # Seg Neutrophils # Man Lymphocytes # (Manual) Monocytes # (Manual) Eosinophils # (Manual) PT INR APTT Fibrinogen POC ABG pH ABG pH POC ABG pCO2 POC ABG pO2 ABG pO2 ABG HCO3 ABG O2 Saturation ABG Base Excess ABG Hemoglobin Oxyhemoglobin Sodium Potassium Chloride Carbon Dioxide BUN 70 H Creatinine Glucose 310 H POC Glucose 283 H 301 H Uric Acid Calcium 8.3 L Phosphorus 4.60 H Magnesium Iron TIBC AST ALT 75 H Total Creatine Kinase CK-MB (CK-2) Troponin T NT-Pro-B Natriuret Pep Total Protein 5.6 L Albumin 2.9 L Triglycerides HDL Cholesterol Folate Urine WBC (Auto) Urine Creatinine Urine Total Protein Vancomycin Trough 06/06/19 06/06/19 06/07/19 22:21 23:16 04:30 WBC RBC Hgb Hct MCV MCH MCHC RDW Plt Count Lymph % (Auto) [place] % (Auto) Eos % (Auto) Lymph # [place] # Eos # Seg Neutrophils % Seg Neuts % (Manual) Lymphocytes % (Manual) Monocytes % (Manual) Eosinophils % (Manual) Nucleated RBC % Seg Neutrophils # Seg Neutrophils # Man Lymphocytes # (Manual) Monocytes # (Manual) Eosinophils # (Manual) PT INR APTT Fibrinogen POC ABG pH ABG pH 7.480 H POC ABG pCO2 POC ABG pO2 ABG pO2 77.0 L ABG HCO3 27.2 H ABG O2 Saturation ABG Base Excess 3.5 H ABG Hemoglobin 7.1 L Oxyhemoglobin 94.2 L Sodium Potassium Chloride Carbon Dioxide BUN Creatinine Glucose POC Glucose 289 H 343 H Uric Acid Calcium Phosphorus Magnesium Iron TIBC AST ALT Total Creatine Kinase CK-MB (CK-2) Troponin T NT-Pro-B Natriuret Pep Total Protein Albumin Triglycerides HDL Cholesterol Folate Urine WBC (Auto) Urine Creatinine Urine Total Protein Vancomycin Trough 06/07/19 06/07/19 06/07/19 05:15 12:52 18:41 WBC RBC Hgb Hct MCV MCH MCHC RDW Plt Count Lymph % (Auto) [place] % (Auto) Eos % (Auto) Lymph # [place] # Eos # Seg Neutrophils % Seg Neuts % (Manual) Lymphocytes % (Manual) Monocytes % (Manual) Eosinophils % (Manual) Nucleated RBC % Seg Neutrophils # Seg Neutrophils # Man Lymphocytes # (Manual) Monocytes # (Manual) Eosinophils # (Manual) PT INR APTT Fibrinogen POC ABG pH ABG pH POC ABG pCO2 POC ABG pO2 ABG pO2 ABG HCO3 ABG O2 Saturation ABG Base Excess ABG Hemoglobin Oxyhemoglobin Sodium Potassium Chloride Carbon Dioxide BUN Creatinine Glucose POC Glucose 307 H 226 H 187 H Uric Acid Calcium Phosphorus Magnesium Iron TIBC AST ALT Total Creatine Kinase CK-MB (CK-2) Troponin T NT-Pro-B Natriuret Pep Total Protein Albumin Triglycerides HDL Cholesterol Folate Urine WBC (Auto) Urine Creatinine Urine Total Protein Vancomycin Trough 06/07/19 06/07/19 06/08/19 22:54 23:46 04:20 WBC 16.0 H RBC Hgb 10.0 L Hct 32.1 L MCV MCH 27 L MCHC 31 L RDW 19.4 H Plt Count Lymph % (Auto) [place] % (Auto) Eos % (Auto) Lymph # [place] # Eos # Seg Neutrophils % Seg Neuts % (Manual) 87.0 H Lymphocytes % (Manual) 7.0 L Monocytes % (Manual) Eosinophils % (Manual) Nucleated RBC % Seg Neutrophils # Seg Neutrophils # Man 13.9 H Lymphocytes # (Manual) 1.1 L Monocytes # (Manual) 1.0 H Eosinophils # (Manual) PT INR APTT Fibrinogen POC ABG pH ABG pH POC ABG pCO2 POC ABG pO2 ABG pO2 ABG HCO3 ABG O2 Saturation ABG Base Excess ABG Hemoglobin Oxyhemoglobin Sodium Potassium Chloride Carbon Dioxide BUN Creatinine Glucose POC Glucose 199 H 172 H Uric Acid Calcium Phosphorus Magnesium Iron TIBC AST ALT Total Creatine Kinase CK-MB (CK-2) Troponin T NT-Pro-B Natriuret Pep Total Protein Albumin Triglycerides HDL Cholesterol Folate Urine WBC (Auto) Urine Creatinine Urine Total Protein Vancomycin Trough 06/08/19 06/08/19 06/08/19 04:20 05:15 11:31 WBC RBC Hgb Hct MCV MCH MCHC RDW Plt Count Lymph % (Auto) [place] % (Auto) Eos % (Auto) Lymph # [place] # Eos # Seg Neutrophils % Seg Neuts % (Manual) Lymphocytes % (Manual) Monocytes % (Manual) Eosinophils % (Manual) Nucleated RBC % Seg Neutrophils # Seg Neutrophils # Man Lymphocytes # (Manual) Monocytes # (Manual) Eosinophils # (Manual) PT INR APTT Fibrinogen POC ABG pH ABG pH POC ABG pCO2 POC ABG pO2 ABG pO2 ABG HCO3 ABG O2 Saturation ABG Base Excess ABG Hemoglobin Oxyhemoglobin Sodium 146 H D Potassium Chloride Carbon Dioxide BUN 77 H Creatinine Glucose 205 H POC Glucose 209 H 181 H Uric Acid Calcium Phosphorus Magnesium Iron TIBC AST ALT 66 H Total Creatine Kinase CK-MB (CK-2) Troponin T NT-Pro-B Natriuret Pep Total Protein 5.5 L Albumin 2.9 L Triglycerides HDL Cholesterol Folate Urine WBC (Auto) Urine Creatinine Urine Total Protein Vancomycin Trough 06/08/19 06/08/19 06/09/19 17:28 23:24 05:20 WBC RBC Hgb Hct MCV MCH MCHC RDW Plt Count Lymph % (Auto) [place] % (Auto) Eos % (Auto) Lymph # [place] # Eos # Seg Neutrophils % Seg Neuts % (Manual) Lymphocytes % (Manual) Monocytes % (Manual) Eosinophils % (Manual) Nucleated RBC % Seg Neutrophils # Seg Neutrophils # Man Lymphocytes # (Manual) Monocytes # (Manual) Eosinophils # (Manual) PT INR APTT Fibrinogen POC ABG pH ABG pH POC ABG pCO2 POC ABG pO2 ABG pO2 ABG HCO3 ABG O2 Saturation ABG Base Excess ABG Hemoglobin Oxyhemoglobin Sodium Potassium Chloride Carbon Dioxide BUN Creatinine Glucose POC Glucose 215 H 200 H 173 H Uric Acid Calcium Phosphorus Magnesium Iron TIBC AST ALT Total Creatine Kinase CK-MB (CK-2) Troponin T NT-Pro-B Natriuret Pep Total Protein Albumin Triglycerides HDL Cholesterol Folate Urine WBC (Auto) Urine Creatinine Urine Total Protein Vancomycin Trough 06/09/19 06/09/19 06/09/19 12:07 18:32 23:51 WBC RBC Hgb Hct MCV MCH MCHC RDW Plt Count Lymph % (Auto) [place] % (Auto) Eos % (Auto) Lymph # [place] # Eos # Seg Neutrophils % Seg Neuts % (Manual) Lymphocytes % (Manual) Monocytes % (Manual) Eosinophils % (Manual) Nucleated RBC % Seg Neutrophils # Seg Neutrophils # Man Lymphocytes # (Manual) Monocytes # (Manual) Eosinophils # (Manual) PT INR APTT Fibrinogen POC ABG pH ABG pH POC ABG pCO2 POC ABG pO2 ABG pO2 ABG HCO3 ABG O2 Saturation ABG Base Excess ABG Hemoglobin Oxyhemoglobin Sodium Potassium Chloride Carbon Dioxide BUN Creatinine Glucose POC Glucose 117 H 169 H 147 H Uric Acid Calcium Phosphorus Magnesium Iron TIBC AST ALT Total Creatine Kinase CK-MB (CK-2) Troponin T NT-Pro-B Natriuret Pep Total Protein Albumin Triglycerides HDL Cholesterol Folate Urine WBC (Auto) Urine Creatinine Urine Total Protein Vancomycin Trough 06/10/19 06/10/19 06/10/19 05:45 05:45 06:01 WBC 14.6 H RBC Hgb 9.9 L Hct 32.2 L MCV MCH 27 L MCHC 31 L RDW 19.6 H Plt Count Lymph % (Auto) 10.5 L [place] % (Auto) 9.4 H Eos % (Auto) Lymph # [place] # 1.4 H Eos # Seg Neutrophils % 79.9 H Seg Neuts % (Manual) Lymphocytes % (Manual) Monocytes % (Manual) Eosinophils % (Manual) Nucleated RBC % Seg Neutrophils # 11.7 H Seg Neutrophils # Man Lymphocytes # (Manual) Monocytes # (Manual) Eosinophils # (Manual) PT INR APTT Fibrinogen POC ABG pH ABG pH POC ABG pCO2 POC ABG pO2 ABG pO2 ABG HCO3 ABG O2 Saturation ABG Base Excess ABG Hemoglobin Oxyhemoglobin Sodium 150 H Potassium Chloride 108.3 H Carbon Dioxide BUN 49 H Creatinine Glucose 172 H POC Glucose 165 H Uric Acid Calcium Phosphorus Magnesium 1.40 L Iron TIBC AST ALT Total Creatine Kinase CK-MB (CK-2) Troponin T NT-Pro-B Natriuret Pep Total Protein Albumin Triglycerides HDL Cholesterol Folate Urine WBC (Auto) Urine Creatinine Urine Total Protein Vancomycin Trough 06/10/19 06/10/19 06/11/19 12:11 18:30 00:02 WBC RBC Hgb Hct MCV MCH MCHC RDW Plt Count Lymph % (Auto) [place] % (Auto) Eos % (Auto) Lymph # [place] # Eos # Seg Neutrophils % Seg Neuts % (Manual) Lymphocytes % (Manual) Monocytes % (Manual) Eosinophils % (Manual) Nucleated RBC % Seg Neutrophils # Seg Neutrophils # Man Lymphocytes # (Manual) Monocytes # (Manual) Eosinophils # (Manual) PT INR APTT Fibrinogen POC ABG pH ABG pH POC ABG pCO2 POC ABG pO2 ABG pO2 ABG HCO3 ABG O2 Saturation ABG Base Excess ABG Hemoglobin Oxyhemoglobin Sodium Potassium Chloride Carbon Dioxide BUN Creatinine Glucose POC Glucose 150 H 154 H 130 H Uric Acid Calcium Phosphorus Magnesium Iron TIBC AST ALT Total Creatine Kinase CK-MB (CK-2) Troponin T NT-Pro-B Natriuret Pep Total Protein Albumin Triglycerides HDL Cholesterol Folate Urine WBC (Auto) Urine Creatinine Urine Total Protein Vancomycin Trough 06/11/19 06/11/19 06/11/19 05:33 08:34 12:33 WBC RBC Hgb Hct MCV MCH MCHC RDW Plt Count Lymph % (Auto) [place] % (Auto) Eos % (Auto) Lymph # [place] # Eos # Seg Neutrophils % Seg Neuts % (Manual) Lymphocytes % (Manual) Monocytes % (Manual) Eosinophils % (Manual) Nucleated RBC % Seg Neutrophils # Seg Neutrophils # Man Lymphocytes # (Manual) Monocytes # (Manual) Eosinophils # (Manual) PT INR APTT Fibrinogen POC ABG pH ABG pH POC ABG pCO2 POC ABG pO2 ABG pO2 ABG HCO3 ABG O2 Saturation ABG Base Excess ABG Hemoglobin Oxyhemoglobin Sodium 154 H Potassium Chloride 111.6 H Carbon Dioxide BUN 41 H Creatinine Glucose 147 H POC Glucose 183 H 185 H Uric Acid Calcium Phosphorus Magnesium Iron TIBC AST ALT Total Creatine Kinase CK-MB (CK-2) Troponin T NT-Pro-B Natriuret Pep Total Protein Albumin Triglycerides HDL Cholesterol Folate Urine WBC (Auto) Urine Creatinine Urine Total Protein Vancomycin Trough 06/11/19 06/11/19 06/12/19 18:22 23:46 03:21 WBC 11.9 H RBC 3.61 L Hgb 9.9 L Hct 31.7 L MCV MCH 27 L MCHC 31 L RDW 19.3 H Plt Count Lymph % (Auto) 10.6 L [place] % (Auto) 8.6 H Eos % (Auto) Lymph # [place] # 1.0 H Eos # Seg Neutrophils % 80.6 H Seg Neuts % (Manual) Lymphocytes % (Manual) Monocytes % (Manual) Eosinophils % (Manual) Nucleated RBC % Seg Neutrophils # 9.6 H Seg Neutrophils # Man Lymphocytes # (Manual) Monocytes # (Manual) Eosinophils # (Manual) PT INR APTT Fibrinogen POC ABG pH ABG pH POC ABG pCO2 POC ABG pO2 ABG pO2 ABG HCO3 ABG O2 Saturation ABG Base Excess ABG Hemoglobin Oxyhemoglobin Sodium Potassium Chloride Carbon Dioxide BUN Creatinine Glucose POC Glucose 158 H 182 H Uric Acid Calcium Phosphorus Magnesium Iron TIBC AST ALT Total Creatine Kinase CK-MB (CK-2) Troponin T NT-Pro-B Natriuret Pep Total Protein Albumin Triglycerides HDL Cholesterol Folate Urine WBC (Auto) Urine Creatinine Urine Total Protein Vancomycin Trough 06/12/19 06/12/19 06/12/19 03:21 06:04 11:28 WBC RBC Hgb Hct MCV MCH MCHC RDW Plt Count Lymph % (Auto) [place] % (Auto) Eos % (Auto) Lymph # [place] # Eos # Seg Neutrophils % Seg Neuts % (Manual) Lymphocytes % (Manual) Monocytes % (Manual) Eosinophils % (Manual) Nucleated RBC % Seg Neutrophils # Seg Neutrophils # Man Lymphocytes # (Manual) Monocytes # (Manual) Eosinophils # (Manual) PT INR APTT Fibrinogen POC ABG pH ABG pH POC ABG pCO2 POC ABG pO2 ABG pO2 ABG HCO3 ABG O2 Saturation ABG Base Excess ABG Hemoglobin Oxyhemoglobin Sodium 148 H Potassium Chloride 107.3 H Carbon Dioxide BUN 34 H Creatinine 0.7 L Glucose 194 H POC Glucose 133 H 167 H Uric Acid Calcium Phosphorus Magnesium 1.40 L Iron TIBC AST ALT Total Creatine Kinase CK-MB (CK-2) Troponin T NT-Pro-B Natriuret Pep Total Protein Albumin Triglycerides HDL Cholesterol Folate Urine WBC (Auto) Urine Creatinine Urine Total Protein Vancomycin Trough 06/12/19 06/12/19 06/13/19 18:47 21:27 00:04 WBC RBC Hgb Hct MCV MCH MCHC RDW Plt Count Lymph % (Auto) [place] % (Auto) Eos % (Auto) Lymph # [place] # Eos # Seg Neutrophils % Seg Neuts % (Manual) Lymphocytes % (Manual) Monocytes % (Manual) Eosinophils % (Manual) Nucleated RBC % Seg Neutrophils # Seg Neutrophils # Man Lymphocytes # (Manual) Monocytes # (Manual) Eosinophils # (Manual) PT INR APTT Fibrinogen POC ABG pH ABG pH POC ABG pCO2 POC ABG pO2 ABG pO2 ABG HCO3 ABG O2 Saturation ABG Base Excess ABG Hemoglobin Oxyhemoglobin Sodium Potassium Chloride Carbon Dioxide BUN Creatinine Glucose POC Glucose 210 H 263 H 248 H Uric Acid Calcium Phosphorus Magnesium Iron TIBC AST ALT Total Creatine Kinase CK-MB (CK-2) Troponin T NT-Pro-B Natriuret Pep Total Protein Albumin Triglycerides HDL Cholesterol Folate Urine WBC (Auto) Urine Creatinine Urine Total Protein Vancomycin Trough 06/13/19 06/13/19 06/13/19 04:32 05:46 13:30 WBC RBC Hgb Hct MCV MCH MCHC RDW Plt Count Lymph % (Auto) [place] % (Auto) Eos % (Auto) Lymph # [place] # Eos # Seg Neutrophils % Seg Neuts % (Manual) Lymphocytes % (Manual) Monocytes % (Manual) Eosinophils % (Manual) Nucleated RBC % Seg Neutrophils # Seg Neutrophils # Man Lymphocytes # (Manual) Monocytes # (Manual) Eosinophils # (Manual) PT INR APTT Fibrinogen POC ABG pH ABG pH POC ABG pCO2 POC ABG pO2 ABG pO2 ABG HCO3 ABG O2 Saturation ABG Base Excess ABG Hemoglobin Oxyhemoglobin Sodium Potassium Chloride Carbon Dioxide BUN 27 H Creatinine 0.7 L Glucose 253 H POC Glucose 201 H 241 H Uric Acid Calcium Phosphorus Magnesium Iron TIBC AST ALT Total Creatine Kinase CK-MB (CK-2) Troponin T NT-Pro-B Natriuret Pep Total Protein Albumin Triglycerides HDL Cholesterol Folate Urine WBC (Auto) Urine Creatinine Urine Total Protein Vancomycin Trough 06/13/19 06/13/19 06/14/19 17:33 23:49 04:50 WBC RBC Hgb Hct MCV MCH MCHC RDW Plt Count Lymph % (Auto) [place] % (Auto) Eos % (Auto) Lymph # [place] # Eos # Seg Neutrophils % Seg Neuts % (Manual) Lymphocytes % (Manual) Monocytes % (Manual) Eosinophils % (Manual) Nucleated RBC % Seg Neutrophils # Seg Neutrophils # Man Lymphocytes # (Manual) Monocytes # (Manual) Eosinophils # (Manual) PT INR APTT Fibrinogen POC ABG pH ABG pH POC ABG pCO2 POC ABG pO2 ABG pO2 ABG HCO3 ABG O2 Saturation ABG Base Excess ABG Hemoglobin Oxyhemoglobin Sodium Potassium Chloride Carbon Dioxide BUN 37 H Creatinine Glucose 256 H POC Glucose 264 H 236 H Uric Acid Calcium Phosphorus Magnesium Iron TIBC AST ALT Total Creatine Kinase CK-MB (CK-2) Troponin T NT-Pro-B Natriuret Pep Total Protein Albumin Triglycerides HDL Cholesterol Folate Urine WBC (Auto) Urine Creatinine Urine Total Protein Vancomycin Trough 06/14/19 06/14/19 06/14/19 05:26 12:31 18:32 WBC RBC Hgb Hct MCV MCH MCHC RDW Plt Count Lymph % (Auto) [place] % (Auto) Eos % (Auto) Lymph # [place] # Eos # Seg Neutrophils % Seg Neuts % (Manual) Lymphocytes % (Manual) Monocytes % (Manual) Eosinophils % (Manual) Nucleated RBC % Seg Neutrophils # Seg Neutrophils # Man Lymphocytes # (Manual) Monocytes # (Manual) Eosinophils # (Manual) PT INR APTT Fibrinogen POC ABG pH ABG pH POC ABG pCO2 POC ABG pO2 ABG pO2 ABG HCO3 ABG O2 Saturation ABG Base Excess ABG Hemoglobin Oxyhemoglobin Sodium Potassium Chloride Carbon Dioxide BUN Creatinine Glucose POC Glucose 239 H 116 H 247 H Uric Acid Calcium Phosphorus Magnesium Iron TIBC AST ALT Total Creatine Kinase CK-MB (CK-2) Troponin T NT-Pro-B Natriuret Pep Total Protein Albumin Triglycerides HDL Cholesterol Folate Urine WBC (Auto) Urine Creatinine Urine Total Protein Vancomycin Trough 06/14/19 06/15/19 06/15/19 23:57 04:05 05:55 WBC RBC Hgb Hct MCV MCH MCHC RDW Plt Count Lymph % (Auto) [place] % (Auto) Eos % (Auto) Lymph # [place] # Eos # Seg Neutrophils % Seg Neuts % (Manual) Lymphocytes % (Manual) Monocytes % (Manual) Eosinophils % (Manual) Nucleated RBC % Seg Neutrophils # Seg Neutrophils # Man Lymphocytes # (Manual) Monocytes # (Manual) Eosinophils # (Manual) PT INR APTT Fibrinogen POC ABG pH ABG pH POC ABG pCO2 POC ABG pO2 ABG pO2 ABG HCO3 ABG O2 Saturation ABG Base Excess ABG Hemoglobin Oxyhemoglobin Sodium Potassium Chloride Carbon Dioxide BUN 46 H Creatinine 0.7 L Glucose 265 H POC Glucose 206 H 265 H Uric Acid Calcium Phosphorus Magnesium Iron TIBC AST ALT Total Creatine Kinase CK-MB (CK-2) Troponin T NT-Pro-B Natriuret Pep Total Protein Albumin Triglycerides HDL Cholesterol Folate Urine WBC (Auto) Urine Creatinine Urine Total Protein Vancomycin Trough 06/15/19 06/15/19 06/15/19 12:08 18:45 23:41 WBC RBC Hgb Hct MCV MCH MCHC RDW Plt Count Lymph % (Auto) [place] % (Auto) Eos % (Auto) Lymph # [place] # Eos # Seg Neutrophils % Seg Neuts % (Manual) Lymphocytes % (Manual) Monocytes % (Manual) Eosinophils % (Manual) Nucleated RBC % Seg Neutrophils # Seg Neutrophils # Man Lymphocytes # (Manual) Monocytes # (Manual) Eosinophils # (Manual) PT INR APTT Fibrinogen POC ABG pH ABG pH POC ABG pCO2 POC ABG pO2 ABG pO2 ABG HCO3 ABG O2 Saturation ABG Base Excess ABG Hemoglobin Oxyhemoglobin Sodium Potassium Chloride Carbon Dioxide BUN Creatinine Glucose POC Glucose 224 H 177 H 193 H Uric Acid Calcium Phosphorus Magnesium Iron TIBC AST ALT Total Creatine Kinase CK-MB (CK-2) Troponin T NT-Pro-B Natriuret Pep Total Protein Albumin Triglycerides HDL Cholesterol Folate Urine WBC (Auto) Urine Creatinine Urine Total Protein Vancomycin Trough 06/16/19 06/16/19 06/16/19 05:00 05:00 05:40 WBC 11.9 H RBC 3.24 L Hgb 9.0 L Hct 29.0 L MCV MCH MCHC 31 L RDW 18.6 H Plt Count 111 L Lymph % (Auto) [place] % (Auto) Eos % (Auto) Lymph # [place] # Eos # Seg Neutrophils % Seg Neuts % (Manual) 92.0 H Lymphocytes % (Manual) 2.0 L Monocytes % (Manual) Eosinophils % (Manual) Nucleated RBC % Seg Neutrophils # Seg Neutrophils # Man 10.9 H Lymphocytes # (Manual) 0.2 L Monocytes # (Manual) Eosinophils # (Manual) PT INR APTT Fibrinogen POC ABG pH ABG pH POC ABG pCO2 POC ABG pO2 ABG pO2 ABG HCO3 ABG O2 Saturation ABG Base Excess ABG Hemoglobin Oxyhemoglobin Sodium Potassium Chloride Carbon Dioxide 33 H BUN 49 H Creatinine 0.7 L Glucose 264 H POC Glucose 247 H Uric Acid Calcium Phosphorus Magnesium Iron TIBC AST ALT Total Creatine Kinase CK-MB (CK-2) Troponin T NT-Pro-B Natriuret Pep Total Protein Albumin Triglycerides HDL Cholesterol Folate Urine WBC (Auto) Urine Creatinine Urine Total Protein Vancomycin Trough 06/16/19 06/16/19 06/16/19 12:03 17:11 18:11 WBC RBC Hgb Hct MCV MCH MCHC RDW Plt Count Lymph % (Auto) [place] % (Auto) Eos % (Auto) Lymph # [place] # Eos # Seg Neutrophils % Seg Neuts % (Manual) Lymphocytes % (Manual) Monocytes % (Manual) Eosinophils % (Manual) Nucleated RBC % Seg Neutrophils # Seg Neutrophils # Man Lymphocytes # (Manual) Monocytes # (Manual) Eosinophils # (Manual) PT INR APTT Fibrinogen POC ABG pH ABG pH 7.289 L POC ABG pCO2 POC ABG pO2 ABG pO2 399.3 H ABG HCO3 30.1 H ABG O2 Saturation 99.6 H ABG Base Excess ABG Hemoglobin 8.6 L Oxyhemoglobin Sodium Potassium Chloride Carbon Dioxide BUN Creatinine Glucose POC Glucose 252 H 254 H Uric Acid Calcium Phosphorus Magnesium Iron TIBC AST ALT Total Creatine Kinase CK-MB (CK-2) Troponin T NT-Pro-B Natriuret Pep Total Protein Albumin Triglycerides HDL Cholesterol Folate Urine WBC (Auto) Urine Creatinine Urine Total Protein Vancomycin Trough 06/16/19 06/17/19 06/17/19 23:16 05:30 05:53 WBC RBC Hgb Hct MCV MCH MCHC RDW Plt Count Lymph % (Auto) [place] % (Auto) Eos % (Auto) Lymph # [place] # Eos # Seg Neutrophils % Seg Neuts % (Manual) Lymphocytes % (Manual) Monocytes % (Manual) Eosinophils % (Manual) Nucleated RBC % Seg Neutrophils # Seg Neutrophils # Man Lymphocytes # (Manual) Monocytes # (Manual) Eosinophils # (Manual) PT INR APTT Fibrinogen POC ABG pH ABG pH POC ABG pCO2 POC ABG pO2 ABG pO2 ABG HCO3 ABG O2 Saturation ABG Base Excess ABG Hemoglobin Oxyhemoglobin Sodium 147 H Potassium Chloride Carbon Dioxide 32 H BUN 60 H Creatinine Glucose 205 H POC Glucose 238 H 211 H Uric Acid Calcium Phosphorus Magnesium Iron TIBC AST ALT Total Creatine Kinase CK-MB (CK-2) Troponin T NT-Pro-B Natriuret Pep Total Protein Albumin Triglycerides HDL Cholesterol Folate Urine WBC (Auto) Urine Creatinine Urine Total Protein Vancomycin Trough 06/17/19 06/17/19 06/17/19 09:50 12:27 12:45 WBC RBC 2.79 L Hgb 8.2 L Hct 24.6 L MCV MCH MCHC RDW 18.5 H Plt Count 95 L Lymph % (Auto) [place] % (Auto) Eos % (Auto) Lymph # [place] # Eos # Seg Neutrophils % Seg Neuts % (Manual) Lymphocytes % (Manual) Monocytes % (Manual) Eosinophils % (Manual) Nucleated RBC % Seg Neutrophils # Seg Neutrophils # Man Lymphocytes # (Manual) Monocytes # (Manual) Eosinophils # (Manual) PT INR APTT Fibrinogen 194 L POC ABG pH ABG pH POC ABG pCO2 POC ABG pO2 ABG pO2 ABG HCO3 ABG O2 Saturation ABG Base Excess ABG Hemoglobin Oxyhemoglobin Sodium Potassium Chloride Carbon Dioxide BUN Creatinine Glucose POC Glucose 224 H Uric Acid Calcium Phosphorus Magnesium Iron TIBC AST ALT Total Creatine Kinase CK-MB (CK-2) Troponin T NT-Pro-B Natriuret Pep Total Protein Albumin Triglycerides HDL Cholesterol Folate Urine WBC (Auto) Urine Creatinine Urine Total Protein Vancomycin Trough 06/17/19 06/17/19 06/17/19 18:41 22:00 23:23 WBC RBC Hgb Hct MCV MCH MCHC RDW Plt Count Lymph % (Auto) [place] % (Auto) Eos % (Auto) Lymph # [place] # Eos # Seg Neutrophils % Seg Neuts % (Manual) Lymphocytes % (Manual) Monocytes % (Manual) Eosinophils % (Manual) Nucleated RBC % Seg Neutrophils # Seg Neutrophils # Man Lymphocytes # (Manual) Monocytes # (Manual) Eosinophils # (Manual) PT INR APTT Fibrinogen POC ABG pH ABG pH POC ABG pCO2 POC ABG pO2 ABG pO2 ABG HCO3 ABG O2 Saturation ABG Base Excess ABG Hemoglobin Oxyhemoglobin Sodium Potassium Chloride Carbon Dioxide BUN Creatinine Glucose POC Glucose 198 H 166 H 171 H Uric Acid Calcium Phosphorus Magnesium Iron TIBC AST ALT Total Creatine Kinase CK-MB (CK-2) Troponin T NT-Pro-B Natriuret Pep Total Protein Albumin Triglycerides HDL Cholesterol Folate Urine WBC (Auto) Urine Creatinine Urine Total Protein Vancomycin Trough 06/17/19 06/18/19 06/18/19 Unknown 03:50 04:25 WBC RBC Hgb Hct MCV MCH MCHC RDW Plt Count Lymph % (Auto) [place] % (Auto) Eos % (Auto) Lymph # [place] # Eos # Seg Neutrophils % Seg Neuts % (Manual) Lymphocytes % (Manual) Monocytes % (Manual) Eosinophils % (Manual) Nucleated RBC % Seg Neutrophils # Seg Neutrophils # Man Lymphocytes # (Manual) Monocytes # (Manual) Eosinophils # (Manual) PT INR APTT Fibrinogen POC ABG pH ABG pH 7.564 H 7.499 H POC ABG pCO2 POC ABG pO2 ABG pO2 238.6 H 130.8 H ABG HCO3 33.6 H 32.5 H ABG O2 Saturation 99.4 H ABG Base Excess 10.6 H 8.5 H ABG Hemoglobin 7.9 L 8.8 L Oxyhemoglobin Sodium 151 H Potassium 3.4 L Chloride Carbon Dioxide BUN 66 H Creatinine Glucose 189 H POC Glucose Uric Acid Calcium Phosphorus Magnesium Iron TIBC AST ALT Total Creatine Kinase CK-MB (CK-2) Troponin T NT-Pro-B Natriuret Pep Total Protein Albumin Triglycerides HDL Cholesterol Folate Urine WBC (Auto) Urine Creatinine Urine Total Protein Vancomycin Trough 06/18/19 06/18/19 06/18/19 05:25 05:27 11:50 WBC RBC 2.61 L Hgb 7.4 L Hct 22.9 L MCV MCH MCHC RDW 19.9 H Plt Count 81 L Lymph % (Auto) 12.9 L [place] % (Auto) 7.7 H Eos % (Auto) Lymph # 1.1 L [place] # Eos # Seg Neutrophils % 77.4 H Seg Neuts % (Manual) Lymphocytes % (Manual) Monocytes % (Manual) Eosinophils % (Manual) Nucleated RBC % Seg Neutrophils # Seg Neutrophils # Man Lymphocytes # (Manual) Monocytes # (Manual) Eosinophils # (Manual) PT INR APTT Fibrinogen POC ABG pH ABG pH POC ABG pCO2 POC ABG pO2 ABG pO2 ABG HCO3 ABG O2 Saturation ABG Base Excess ABG Hemoglobin Oxyhemoglobin Sodium Potassium Chloride Carbon Dioxide BUN Creatinine Glucose POC Glucose 186 H 263 H Uric Acid Calcium Phosphorus Magnesium Iron TIBC AST ALT Total Creatine Kinase CK-MB (CK-2) Troponin T NT-Pro-B Natriuret Pep Total Protein Albumin Triglycerides HDL Cholesterol Folate Urine WBC (Auto) Urine Creatinine Urine Total Protein Vancomycin Trough 06/18/19 06/18/19 06/18/19 18:35 21:31 23:21 WBC RBC Hgb Hct MCV MCH MCHC RDW Plt Count Lymph % (Auto) [place] % (Auto) Eos % (Auto) Lymph # [place] # Eos # Seg Neutrophils % Seg Neuts % (Manual) Lymphocytes % (Manual) Monocytes % (Manual) Eosinophils % (Manual) Nucleated RBC % Seg Neutrophils # Seg Neutrophils # Man Lymphocytes # (Manual) Monocytes # (Manual) Eosinophils # (Manual) PT INR APTT Fibrinogen POC ABG pH ABG pH POC ABG pCO2 POC ABG pO2 ABG pO2 ABG HCO3 ABG O2 Saturation ABG Base Excess ABG Hemoglobin Oxyhemoglobin Sodium Potassium Chloride Carbon Dioxide BUN Creatinine Glucose POC Glucose 154 H 186 H 202 H Uric Acid Calcium Phosphorus Magnesium Iron TIBC AST ALT Total Creatine Kinase CK-MB (CK-2) Troponin T NT-Pro-B Natriuret Pep Total Protein Albumin Triglycerides HDL Cholesterol Folate Urine WBC (Auto) Urine Creatinine Urine Total Protein Vancomycin Trough 06/19/19 06/19/19 06/19/19 03:18 04:30 04:30 WBC RBC 2.65 L Hgb 7.5 L Hct 23.1 L MCV MCH MCHC RDW 19.4 H Plt Count 74 L Lymph % (Auto) 8.8 L [place] % (Auto) 9.4 H Eos % (Auto) 4.7 H Lymph # 0.6 L [place] # Eos # Seg Neutrophils % 76.6 H Seg Neuts % (Manual) Lymphocytes % (Manual) Monocytes % (Manual) Eosinophils % (Manual) Nucleated RBC % Seg Neutrophils # Seg Neutrophils # Man Lymphocytes # (Manual) Monocytes # (Manual) Eosinophils # (Manual) PT INR APTT Fibrinogen POC ABG pH ABG pH 7.452 H POC ABG pCO2 POC ABG pO2 ABG pO2 105.5 H ABG HCO3 32.3 H ABG O2 Saturation ABG Base Excess 7.6 H ABG Hemoglobin 6.9 L Oxyhemoglobin Sodium 150 H Potassium 3.3 L Chloride Carbon Dioxide 31 H BUN 56 H Creatinine Glucose 197 H POC Glucose Uric Acid Calcium Phosphorus Magnesium Iron TIBC AST ALT Total Creatine Kinase CK-MB (CK-2) Troponin T NT-Pro-B Natriuret Pep Total Protein Albumin Triglycerides 210 H HDL Cholesterol Folate Urine WBC (Auto) Urine Creatinine Urine Total Protein Vancomycin Trough 06/19/19 06/19/19 06/19/19 05:24 12:18 18:55 WBC RBC Hgb Hct MCV MCH MCHC RDW Plt Count Lymph % (Auto) [place] % (Auto) Eos % (Auto) Lymph # [place] # Eos # Seg Neutrophils % Seg Neuts % (Manual) Lymphocytes % (Manual) Monocytes % (Manual) Eosinophils % (Manual) Nucleated RBC % Seg Neutrophils # Seg Neutrophils # Man Lymphocytes # (Manual) Monocytes # (Manual) Eosinophils # (Manual) PT INR APTT Fibrinogen POC ABG pH ABG pH POC ABG pCO2 POC ABG pO2 ABG pO2 ABG HCO3 ABG O2 Saturation ABG Base Excess ABG Hemoglobin Oxyhemoglobin Sodium Potassium Chloride Carbon Dioxide BUN Creatinine Glucose POC Glucose 176 H 260 H 192 H Uric Acid Calcium Phosphorus Magnesium Iron TIBC AST ALT Total Creatine Kinase CK-MB (CK-2) Troponin T NT-Pro-B Natriuret Pep Total Protein Albumin Triglycerides HDL Cholesterol Folate Urine WBC (Auto) Urine Creatinine Urine Total Protein Vancomycin Trough 06/19/19 06/19/19 06/20/19 22:57 23:46 04:40 WBC RBC 2.79 L Hgb 7.9 L Hct 24.3 L MCV MCH MCHC RDW 19.6 H Plt Count 92 L Lymph % (Auto) 9.2 L [place] % (Auto) 12.0 H Eos % (Auto) 5.2 H Lymph # 0.9 L [place] # 1.2 H Eos # 0.5 H Seg Neutrophils % 73.3 H Seg Neuts % (Manual) Lymphocytes % (Manual) Monocytes % (Manual) Eosinophils % (Manual) Nucleated RBC % Seg Neutrophils # Seg Neutrophils # Man Lymphocytes # (Manual) Monocytes # (Manual) Eosinophils # (Manual) PT INR APTT Fibrinogen POC ABG pH ABG pH POC ABG pCO2 POC ABG pO2 ABG pO2 ABG HCO3 ABG O2 Saturation ABG Base Excess ABG Hemoglobin Oxyhemoglobin Sodium Potassium Chloride Carbon Dioxide BUN Creatinine Glucose POC Glucose 145 H 216 H Uric Acid Calcium Phosphorus Magnesium Iron TIBC AST ALT Total Creatine Kinase CK-MB (CK-2) Troponin T NT-Pro-B Natriuret Pep Total Protein Albumin Triglycerides HDL Cholesterol Folate Urine WBC (Auto) Urine Creatinine Urine Total Protein Vancomycin Trough 06/20/19 06/20/19 06/20/19 04:40 05:40 05:54 WBC RBC Hgb Hct MCV MCH MCHC RDW Plt Count Lymph % (Auto) [place] % (Auto) Eos % (Auto) Lymph # [place] # Eos # Seg Neutrophils % Seg Neuts % (Manual) Lymphocytes % (Manual) Monocytes % (Manual) Eosinophils % (Manual) Nucleated RBC % Seg Neutrophils # Seg Neutrophils # Man Lymphocytes # (Manual) Monocytes # (Manual) Eosinophils # (Manual) PT INR APTT Fibrinogen POC ABG pH ABG pH 7.455 H POC ABG pCO2 POC ABG pO2 ABG pO2 60.9 L ABG HCO3 30.3 H ABG O2 Saturation 92.3 L ABG Base Excess 5.8 H ABG Hemoglobin 8.2 L Oxyhemoglobin 90.1 L Sodium Potassium 3.5 L Chloride Carbon Dioxide BUN 59 H Creatinine Glucose 200 H POC Glucose 190 H Uric Acid Calcium Phosphorus Magnesium 1.60 L Iron TIBC AST ALT Total Creatine Kinase CK-MB (CK-2) Troponin T NT-Pro-B Natriuret Pep Total Protein Albumin Triglycerides HDL Cholesterol Folate Urine WBC (Auto) Urine Creatinine Urine Total Protein Vancomycin Trough 06/20/19 06/20/19 06/20/19 09:12 09:12 12:24 WBC RBC Hgb Hct MCV MCH MCHC RDW Plt Count Lymph % (Auto) [place] % (Auto) Eos % (Auto) Lymph # [place] # Eos # Seg Neutrophils % Seg Neuts % (Manual) Lymphocytes % (Manual) Monocytes % (Manual) Eosinophils % (Manual) Nucleated RBC % Seg Neutrophils # Seg Neutrophils # Man Lymphocytes # (Manual) Monocytes # (Manual) Eosinophils # (Manual) PT INR APTT Fibrinogen POC ABG pH ABG pH POC ABG pCO2 POC ABG pO2 ABG pO2 ABG HCO3 ABG O2 Saturation ABG Base Excess ABG Hemoglobin Oxyhemoglobin Sodium Potassium Chloride Carbon Dioxide BUN Creatinine Glucose POC Glucose 225 H Uric Acid Calcium Phosphorus Magnesium Iron 45 L TIBC 110 L AST ALT Total Creatine Kinase CK-MB (CK-2) Troponin T NT-Pro-B Natriuret Pep Total Protein Albumin Triglycerides HDL Cholesterol Folate 7.01 L Urine WBC (Auto) Urine Creatinine Urine Total Protein Vancomycin Trough 06/20/19 06/20/19 06/20/19 17:42 21:55 23:24 WBC RBC Hgb Hct MCV MCH MCHC RDW Plt Count Lymph % (Auto) [place] % (Auto) Eos % (Auto) Lymph # [place] # Eos # Seg Neutrophils % Seg Neuts % (Manual) Lymphocytes % (Manual) Monocytes % (Manual) Eosinophils % (Manual) Nucleated RBC % Seg Neutrophils # Seg Neutrophils # Man Lymphocytes # (Manual) Monocytes # (Manual) Eosinophils # (Manual) PT INR APTT Fibrinogen POC ABG pH ABG pH POC ABG pCO2 POC ABG pO2 ABG pO2 ABG HCO3 ABG O2 Saturation ABG Base Excess ABG Hemoglobin Oxyhemoglobin Sodium Potassium Chloride Carbon Dioxide BUN Creatinine Glucose POC Glucose 255 H 218 H 215 H Uric Acid Calcium Phosphorus Magnesium Iron TIBC AST ALT Total Creatine Kinase CK-MB (CK-2) Troponin T NT-Pro-B Natriuret Pep Total Protein Albumin Triglycerides HDL Cholesterol Folate Urine WBC (Auto) Urine Creatinine Urine Total Protein Vancomycin Trough 06/21/19 06/21/19 06/21/19 03:32 03:40 05:20 WBC 12.8 H RBC 3.03 L Hgb 8.5 L Hct 26.2 L MCV MCH MCHC RDW 19.4 H Plt Count 131 L Lymph % (Auto) [place] % (Auto) Eos % (Auto) Lymph # [place] # Eos # Seg Neutrophils % Seg Neuts % (Manual) 78.0 H Lymphocytes % (Manual) 5.0 L Monocytes % (Manual) 11.0 H Eosinophils % (Manual) Nucleated RBC % Seg Neutrophils # Seg Neutrophils # Man 10.0 H Lymphocytes # (Manual) 0.6 L Monocytes # (Manual) 1.4 H Eosinophils # (Manual) 0.5 H PT INR APTT Fibrinogen POC ABG pH ABG pH 7.476 H POC ABG pCO2 POC ABG pO2 ABG pO2 162.0 H ABG HCO3 26.8 H ABG O2 Saturation 99.1 H ABG Base Excess 3.1 H ABG Hemoglobin 8.6 L Oxyhemoglobin Sodium Potassium Chloride Carbon Dioxide BUN Creatinine Glucose POC Glucose 202 H Uric Acid Calcium Phosphorus Magnesium Iron TIBC AST ALT Total Creatine Kinase CK-MB (CK-2) Troponin T NT-Pro-B Natriuret Pep Total Protein Albumin Triglycerides HDL Cholesterol Folate Urine WBC (Auto) Urine Creatinine Urine Total Protein Vancomycin Trough 06/21/19 06/21/19 06/21/19 05:20 12:30 18:18 WBC RBC Hgb Hct MCV MCH MCHC RDW Plt Count Lymph % (Auto) [place] % (Auto) Eos % (Auto) Lymph # [place] # Eos # Seg Neutrophils % Seg Neuts % (Manual) Lymphocytes % (Manual) Monocytes % (Manual) Eosinophils % (Manual) Nucleated RBC % Seg Neutrophils # Seg Neutrophils # Man Lymphocytes # (Manual) Monocytes # (Manual) Eosinophils # (Manual) PT INR APTT Fibrinogen POC ABG pH ABG pH POC ABG pCO2 POC ABG pO2 ABG pO2 ABG HCO3 ABG O2 Saturation ABG Base Excess ABG Hemoglobin Oxyhemoglobin Sodium Potassium Chloride 97.7 L Carbon Dioxide BUN 69 H Creatinine Glucose 239 H POC Glucose 176 H 187 H Uric Acid Calcium Phosphorus Magnesium 2.40 H Iron TIBC AST ALT Total Creatine Kinase CK-MB (CK-2) Troponin T NT-Pro-B Natriuret Pep Total Protein Albumin Triglycerides HDL Cholesterol Folate Urine WBC (Auto) Urine Creatinine Urine Total Protein Vancomycin Trough 06/22/19 06/22/19 06/22/19 04:11 05:30 05:30 WBC 12.6 H RBC 3.10 L Hgb 8.7 L Hct 27.0 L MCV MCH MCHC RDW 19.8 H Plt Count Lymph % (Auto) [place] % (Auto) Eos % (Auto) Lymph # [place] # Eos # Seg Neutrophils % Seg Neuts % (Manual) Lymphocytes % (Manual) Monocytes % (Manual) 10.0 H Eosinophils % (Manual) Nucleated RBC % Seg Neutrophils # Seg Neutrophils # Man 8.7 H Lymphocytes # (Manual) Monocytes # (Manual) 1.3 H Eosinophils # (Manual) PT INR APTT Fibrinogen POC ABG pH ABG pH POC ABG pCO2 POC ABG pO2 ABG pO2 ABG HCO3 27.7 H ABG O2 Saturation ABG Base Excess 3.3 H ABG Hemoglobin 8.5 L Oxyhemoglobin 94.9 L Sodium Potassium Chloride Carbon Dioxide BUN 66 H Creatinine Glucose 103 H POC Glucose Uric Acid Calcium Phosphorus Magnesium Iron TIBC AST ALT Total Creatine Kinase CK-MB (CK-2) Troponin T NT-Pro-B Natriuret Pep Total Protein Albumin Triglycerides HDL Cholesterol Folate Urine WBC (Auto) Urine Creatinine Urine Total Protein Vancomycin Trough 06/22/19 06/22/19 06/23/19 17:43 23:25 02:00 WBC RBC Hgb Hct MCV MCH MCHC RDW Plt Count Lymph % (Auto) [place] % (Auto) Eos % (Auto) Lymph # [place] # Eos # Seg Neutrophils % Seg Neuts % (Manual) Lymphocytes % (Manual) Monocytes % (Manual) Eosinophils % (Manual) Nucleated RBC % Seg Neutrophils # Seg Neutrophils # Man Lymphocytes # (Manual) Monocytes # (Manual) Eosinophils # (Manual) PT INR APTT Fibrinogen POC ABG pH ABG pH 7.469 H POC ABG pCO2 POC ABG pO2 ABG pO2 58.7 L ABG HCO3 28.0 H ABG O2 Saturation 94.6 L ABG Base Excess 4.0 H ABG Hemoglobin 7.1 L Oxyhemoglobin 92.2 L Sodium Potassium Chloride Carbon Dioxide BUN Creatinine Glucose POC Glucose 143 H 106 H Uric Acid Calcium Phosphorus Magnesium Iron TIBC AST ALT Total Creatine Kinase CK-MB (CK-2) Troponin T NT-Pro-B Natriuret Pep Total Protein Albumin Triglycerides HDL Cholesterol Folate Urine WBC (Auto) Urine Creatinine Urine Total Protein Vancomycin Trough 06/23/19 06/23/19 06/23/19 05:24 05:24 11:43 WBC 12.6 H RBC 2.96 L Hgb 8.3 L Hct 25.5 L MCV MCH MCHC RDW 20.2 H Plt Count Lymph % (Auto) [place] % (Auto) Eos % (Auto) Lymph # [place] # Eos # Seg Neutrophils % Seg Neuts % (Manual) Lymphocytes % (Manual) 12.0 L Monocytes % (Manual) 11.0 H Eosinophils % (Manual) 6.0 H Nucleated RBC % Seg Neutrophils # Seg Neutrophils # Man 8.8 H Lymphocytes # (Manual) Monocytes # (Manual) 1.4 H Eosinophils # (Manual) 0.8 H PT INR APTT Fibrinogen POC ABG pH ABG pH POC ABG pCO2 POC ABG pO2 ABG pO2 ABG HCO3 ABG O2 Saturation ABG Base Excess ABG Hemoglobin Oxyhemoglobin Sodium 146 H Potassium 3.5 L Chloride Carbon Dioxide BUN 48 H Creatinine Glucose 123 H POC Glucose 120 H Uric Acid Calcium Phosphorus Magnesium Iron TIBC AST ALT Total Creatine Kinase CK-MB (CK-2) Troponin T NT-Pro-B Natriuret Pep Total Protein Albumin Triglycerides HDL Cholesterol Folate Urine WBC (Auto) Urine Creatinine Urine Total Protein Vancomycin Trough 06/23/19 06/24/19 06/24/19 17:39 06:53 06:53 WBC 12.3 H RBC 2.87 L Hgb 8.0 L Hct 24.9 L MCV MCH MCHC RDW 20.5 H Plt Count Lymph % (Auto) [place] % (Auto) 8.8 H Eos % (Auto) 4.4 H Lymph # [place] # 1.1 H Eos # 0.5 H Seg Neutrophils % Seg Neuts % (Manual) Lymphocytes % (Manual) Monocytes % (Manual) Eosinophils % (Manual) Nucleated RBC % Seg Neutrophils # Seg Neutrophils # Man Lymphocytes # (Manual) Monocytes # (Manual) Eosinophils # (Manual) PT INR APTT Fibrinogen POC ABG pH ABG pH POC ABG pCO2 POC ABG pO2 ABG pO2 ABG HCO3 ABG O2 Saturation ABG Base Excess ABG Hemoglobin Oxyhemoglobin Sodium Potassium Chloride 107.1 H Carbon Dioxide 21 L BUN 29 H Creatinine 0.6 L Glucose 117 H POC Glucose 111 H Uric Acid Calcium Phosphorus Magnesium 1.60 L Iron TIBC AST ALT Total Creatine Kinase CK-MB (CK-2) Troponin T NT-Pro-B Natriuret Pep Total Protein Albumin Triglycerides HDL Cholesterol Folate Urine WBC (Auto) Urine Creatinine Urine Total Protein Vancomycin Trough 06/24/19 06/24/19 06/24/19 12:12 18:01 23:20 WBC RBC Hgb Hct MCV MCH MCHC RDW Plt Count Lymph % (Auto) [place] % (Auto) Eos % (Auto) Lymph # [place] # Eos # Seg Neutrophils % Seg Neuts % (Manual) Lymphocytes % (Manual) Monocytes % (Manual) Eosinophils % (Manual) Nucleated RBC % Seg Neutrophils # Seg Neutrophils # Man Lymphocytes # (Manual) Monocytes # (Manual) Eosinophils # (Manual) PT INR APTT Fibrinogen POC ABG pH ABG pH POC ABG pCO2 POC ABG pO2 ABG pO2 ABG HCO3 ABG O2 Saturation ABG Base Excess ABG Hemoglobin Oxyhemoglobin Sodium Potassium Chloride Carbon Dioxide BUN Creatinine Glucose POC Glucose 158 H 133 H 106 H Uric Acid Calcium Phosphorus Magnesium Iron TIBC AST ALT Total Creatine Kinase CK-MB (CK-2) Troponin T NT-Pro-B Natriuret Pep Total Protein Albumin Triglycerides HDL Cholesterol Folate Urine WBC (Auto) Urine Creatinine Urine Total Protein Vancomycin Trough 06/25/19 06/25/19 06/25/19 04:46 04:46 05:36 WBC 12.3 H RBC 2.98 L Hgb 8.3 L Hct 26.4 L MCV MCH MCHC 31 L RDW 20.1 H Plt Count Lymph % (Auto) [place] % (Auto) Eos % (Auto) Lymph # [place] # Eos # Seg Neutrophils % Seg Neuts % (Manual) Lymphocytes % (Manual) Monocytes % (Manual) 10.0 H Eosinophils % (Manual) Nucleated RBC % Seg Neutrophils # Seg Neutrophils # Man 8.1 H Lymphocytes # (Manual) Monocytes # (Manual) 1.2 H Eosinophils # (Manual) PT INR APTT Fibrinogen POC ABG pH ABG pH POC ABG pCO2 POC ABG pO2 ABG pO2 ABG HCO3 ABG O2 Saturation ABG Base Excess ABG Hemoglobin Oxyhemoglobin Sodium 148 H Potassium Chloride 108.0 H Carbon Dioxide BUN 21 H Creatinine 0.7 L Glucose 120 H POC Glucose 121 H Uric Acid Calcium Phosphorus Magnesium Iron TIBC AST ALT Total Creatine Kinase CK-MB (CK-2) Troponin T NT-Pro-B Natriuret Pep Total Protein Albumin Triglycerides HDL Cholesterol Folate Urine WBC (Auto) Urine Creatinine Urine Total Protein Vancomycin Trough 06/25/19 06/25/19 06/26/19 14:02 18:30 00:01 WBC RBC Hgb Hct MCV MCH MCHC RDW Plt Count Lymph % (Auto) [place] % (Auto) Eos % (Auto) Lymph # [place] # Eos # Seg Neutrophils % Seg Neuts % (Manual) Lymphocytes % (Manual) Monocytes % (Manual) Eosinophils % (Manual) Nucleated RBC % Seg Neutrophils # Seg Neutrophils # Man Lymphocytes # (Manual) Monocytes # (Manual) Eosinophils # (Manual) PT INR APTT Fibrinogen POC ABG pH ABG pH POC ABG pCO2 POC ABG pO2 ABG pO2 ABG HCO3 ABG O2 Saturation ABG Base Excess ABG Hemoglobin Oxyhemoglobin Sodium Potassium Chloride Carbon Dioxide BUN Creatinine Glucose POC Glucose 125 H 145 H 142 H Uric Acid Calcium Phosphorus Magnesium Iron TIBC AST ALT Total Creatine Kinase CK-MB (CK-2) Troponin T NT-Pro-B Natriuret Pep Total Protein Albumin Triglycerides HDL Cholesterol Folate Urine WBC (Auto) Urine Creatinine Urine Total Protein Vancomycin Trough 06/26/19 06/26/19 06/26/19 04:43 04:43 05:41 WBC RBC 3.02 L Hgb 8.6 L Hct 27.0 L MCV MCH MCHC RDW 20.4 H Plt Count Lymph % (Auto) [place] % (Auto) Eos % (Auto) Lymph # [place] # Eos # Seg Neutrophils % Seg Neuts % (Manual) Lymphocytes % (Manual) Monocytes % (Manual) 9.0 H Eosinophils % (Manual) Nucleated RBC % Seg Neutrophils # Seg Neutrophils # Man Lymphocytes # (Manual) Monocytes # (Manual) 1.0 H Eosinophils # (Manual) PT INR APTT Fibrinogen POC ABG pH ABG pH POC ABG pCO2 POC ABG pO2 ABG pO2 ABG HCO3 ABG O2 Saturation ABG Base Excess ABG Hemoglobin Oxyhemoglobin Sodium Potassium Chloride Carbon Dioxide BUN Creatinine 0.7 L Glucose 111 H POC Glucose 110 H Uric Acid Calcium Phosphorus Magnesium 1.60 L Iron TIBC AST ALT Total Creatine Kinase CK-MB (CK-2) Troponin T NT-Pro-B Natriuret Pep Total Protein Albumin Triglycerides HDL Cholesterol Folate Urine WBC (Auto) Urine Creatinine Urine Total Protein Vancomycin Trough 06/26/19 06/26/19 06/27/19 11:55 18:07 12:10 WBC RBC Hgb Hct MCV MCH MCHC RDW Plt Count Lymph % (Auto) [place] % (Auto) Eos % (Auto) Lymph # [place] # Eos # Seg Neutrophils % Seg Neuts % (Manual) Lymphocytes % (Manual) Monocytes % (Manual) Eosinophils % (Manual) Nucleated RBC % Seg Neutrophils # Seg Neutrophils # Man Lymphocytes # (Manual) Monocytes # (Manual) Eosinophils # (Manual) PT INR APTT Fibrinogen POC ABG pH ABG pH POC ABG pCO2 POC ABG pO2 ABG pO2 ABG HCO3 ABG O2 Saturation ABG Base Excess ABG Hemoglobin Oxyhemoglobin Sodium Potassium Chloride Carbon Dioxide BUN Creatinine Glucose POC Glucose 159 H 107 H 121 H Uric Acid Calcium Phosphorus Magnesium Iron TIBC AST ALT Total Creatine Kinase CK-MB (CK-2) Troponin T NT-Pro-B Natriuret Pep Total Protein Albumin Triglycerides HDL Cholesterol Folate Urine WBC (Auto) Urine Creatinine Urine Total Protein Vancomycin Trough 06/28/19 06/29/19 06/29/19 05:54 13:10 17:58 WBC RBC Hgb Hct MCV MCH MCHC RDW Plt Count Lymph % (Auto) [place] % (Auto) Eos % (Auto) Lymph # [place] # Eos # Seg Neutrophils % Seg Neuts % (Manual) Lymphocytes % (Manual) Monocytes % (Manual) Eosinophils % (Manual) Nucleated RBC % Seg Neutrophils # Seg Neutrophils # Man Lymphocytes # (Manual) Monocytes # (Manual) Eosinophils # (Manual) PT INR APTT Fibrinogen POC ABG pH ABG pH POC ABG pCO2 POC ABG pO2 ABG pO2 ABG HCO3 ABG O2 Saturation ABG Base Excess ABG Hemoglobin Oxyhemoglobin Sodium Potassium Chloride Carbon Dioxide BUN Creatinine Glucose POC Glucose 107 H 115 H 108 H Uric Acid Calcium Phosphorus Magnesium Iron TIBC AST ALT Total Creatine Kinase CK-MB (CK-2) Troponin T NT-Pro-B Natriuret Pep Total Protein Albumin Triglycerides HDL Cholesterol Folate Urine WBC (Auto) Urine Creatinine Urine Total Protein Vancomycin Trough 06/30/19 06/30/19 07/01/19 12:00 18:13 05:49 WBC RBC Hgb Hct MCV MCH MCHC RDW Plt Count Lymph % (Auto) [place] % (Auto) Eos % (Auto) Lymph # [place] # Eos # Seg Neutrophils % Seg Neuts % (Manual) Lymphocytes % (Manual) Monocytes % (Manual) Eosinophils % (Manual) Nucleated RBC % Seg Neutrophils # Seg Neutrophils # Man Lymphocytes # (Manual) Monocytes # (Manual) Eosinophils # (Manual) PT INR APTT Fibrinogen POC ABG pH ABG pH POC ABG pCO2 POC ABG pO2 ABG pO2 ABG HCO3 ABG O2 Saturation ABG Base Excess ABG Hemoglobin Oxyhemoglobin Sodium Potassium Chloride Carbon Dioxide BUN Creatinine Glucose POC Glucose 108 H 114 H 114 H Uric Acid Calcium Phosphorus Magnesium Iron TIBC AST ALT Total Creatine Kinase CK-MB (CK-2) Troponin T NT-Pro-B Natriuret Pep Total Protein Albumin Triglycerides HDL Cholesterol Folate Urine WBC (Auto) Urine Creatinine Urine Total Protein Vancomycin Trough 07/01/19 07/01/19 07/01/19 07:58 07:58 12:06 WBC 11.5 H RBC 3.24 L Hgb 9.0 L Hct 28.4 L MCV MCH MCHC RDW 20.8 H Plt Count Lymph % (Auto) 8.3 L [place] % (Auto) 10.0 H Eos % (Auto) Lymph # 0.9 L [place] # 1.2 H Eos # Seg Neutrophils % 79.4 H Seg Neuts % (Manual) Lymphocytes % (Manual) Monocytes % (Manual) Eosinophils % (Manual) Nucleated RBC % Seg Neutrophils # 9.1 H Seg Neutrophils # Man Lymphocytes # (Manual) Monocytes # (Manual) Eosinophils # (Manual) PT INR APTT Fibrinogen POC ABG pH ABG pH POC ABG pCO2 POC ABG pO2 ABG pO2 ABG HCO3 ABG O2 Saturation ABG Base Excess ABG Hemoglobin Oxyhemoglobin Sodium Potassium Chloride Carbon Dioxide BUN Creatinine 0.4 L Glucose 130 H POC Glucose 133 H Uric Acid Calcium Phosphorus Magnesium Iron TIBC AST ALT Total Creatine Kinase CK-MB (CK-2) Troponin T NT-Pro-B Natriuret Pep Total Protein Albumin Triglycerides HDL Cholesterol Folate Urine WBC (Auto) Urine Creatinine Urine Total Protein Vancomycin Trough 07/02/19 05:54 WBC RBC Hgb Hct MCV MCH MCHC RDW Plt Count Lymph % (Auto) [place] % (Auto) Eos % (Auto) Lymph # [place] # Eos # Seg Neutrophils % Seg Neuts % (Manual) Lymphocytes % (Manual) Monocytes % (Manual) Eosinophils % (Manual) Nucleated RBC % Seg Neutrophils # Seg Neutrophils # Man Lymphocytes # (Manual) Monocytes # (Manual) Eosinophils # (Manual) PT INR APTT Fibrinogen POC ABG pH ABG pH POC ABG pCO2 POC ABG pO2 ABG pO2 ABG HCO3 ABG O2 Saturation ABG Base Excess ABG Hemoglobin Oxyhemoglobin Sodium Potassium Chloride Carbon Dioxide BUN Creatinine Glucose POC Glucose 111 H Uric Acid Calcium Phosphorus Magnesium Iron TIBC AST ALT Total Creatine Kinase CK-MB (CK-2) Troponin T NT-Pro-B Natriuret Pep Total Protein Albumin Triglycerides HDL Cholesterol Folate Urine WBC (Auto) Urine Creatinine Urine Total Protein Vancomycin Trough
--- NOTE | 2019-07-02 15:51 | Progress Note ---
Assessment and Plan /Acute respiratory failure; vent dependent/status post trach and PEG Off ventilatory support, on T-piece ,trach care, nebulizers Pulmonary critical following /Persistent fevers; leukocytosis , resolved Internal jugular tunneled hemodialysis catheter removed ID evaluated , off antibiotics /Obesity hypoventilation syndrome Status post tracheostomy, titrate O2 sats to more than 90% /Status post cardiac arrest mild anoxic brain injury patient's mentation is improved ., EEG was negative for seizures and neurology evaluated /Severe malnutrition Dysphasia; dw with his mom, she is agreeable to PEG tube, GS consulted Dietitian input appreciated, continue tube feeds /Anemia of chronic disease : Closely monitor H&H and transfuse as needed. 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 Now Patient is on Eliquis /-Acute kidney injury due to ATN : Requiring dialysis Resolved, nephrology following. /Hypernatremia/Hypokalemia/ hypomagnesemia: Resolved /Morbid obesity; will need weight loss program upon discharge /DVT prophylaxis; scd /Eliquis Plan of care discussed with the patient and his nurse Physical therapy/occupational therapy when patient is stable Disposition ; home with home health versus placement when patient is stable. Social and insurance issues. Brief History 34-year-old man with morbid obesity was brought to the hospital for shortness of breath and insomnia. He was found to have severe hypoxia and bradycardia who then became pulseless, he was cyanotic and he was intubated after receiving CPR with 2 rounds of epinephrine. Patient was intubated, extubated and reintubated, unable to wean vent dependent, underwent trach and PEG on 06/22/2019, later weaned off vent on T piece alert and awake in mild distress. Discharge Planning per case management [social/insurance issues]. Hospitalist Physical General appearance: Present: mild distress, well-nourished, obese (morbidly obese), other (tracheostomy /T-piece) - EENT Eyes: Present: PERRL, EOM intact - Neck Neck: Present: supple, normal ROM - Respiratory Respiratory effort: normal Respiratory: bilateral: diminished, rales, rhonchi, negative: wheezing - Cardiovascular Rhythm: regular Heart Sounds: Present: S1 & S2 - Extremities Extremities: no ischemia, No edema - Abdominal General gastrointestinal: soft, non-tender, non-distended, normal bowel sounds, other (PEG tube in place) - Integumentary Integumentary: Present: clear, warm - Psychiatric Psychiatric: appropriate mood/affect, cooperative - Neurologic Neurologic: moves all extremities Subjective Date of service: 07/02/19 Principal diagnosis: anemia - LOw PLT Interval history: Patient seen and examined. Medical records and medication list reviewed. Patient pulled out his trach last night, then trach tube was replaced Patient remained minimally responsive on mechanical ventilation with trach Discussed plan of care at bedside with patient's RN. No family member at the bedside Objective - Constitutional Vitals: Vital Signs - 12hr 07/02/19 07/02/19 07/02/19 04:00 04:01 05:00 Temperature Pulse Rate 103 H 102 H Pulse Rate [ 103 H From Monitor] Respiratory 13 19 Rate Blood Pressure 135/73 136/97 O2 Sat by Pulse 93 100 92 Oximetry 07/02/19 07/02/19 07/02/19 05:10 06:01 06:33 Temperature Pulse Rate 105 H 105 H Pulse Rate [ From Monitor] Respiratory 24 Rate Blood Pressure 140/93 144/90 O2 Sat by Pulse 95 96 Oximetry 07/02/19 07/02/19 07/02/19 07:00 08:00 09:01 Temperature 99.2 F Pulse Rate 98 H 94 H 95 H Pulse Rate [ 94 H From Monitor] Respiratory 11 L 21 25 H Rate Blood Pressure 138/74 137/75 152/75 O2 Sat by Pulse 95 99 99 Oximetry 07/02/19 07/02/19 07/02/19 10:00 10:26 11:01 Temperature Pulse Rate 91 H 92 H 98 H Pulse Rate [ From Monitor] Respiratory 28 H 25 H Rate Blood Pressure 133/74 140/83 144/64 O2 Sat by Pulse 98 100 Oximetry 07/02/19 07/02/19 07/02/19 12:00 12:01 13:00 Temperature 99.0 F Pulse Rate 92 H 95 H 93 H Pulse Rate [ 94 H From Monitor] Respiratory 33 H 18 33 H Rate Blood Pressure 144/67 157/89 O2 Sat by Pulse 99 99 99 Oximetry 07/02/19 07/02/19 07/02/19 14:01 15:01 15:28 Temperature Pulse Rate 104 H 109 H 105 H Pulse Rate [ From Monitor] Respiratory 16 37 H Rate Blood Pressure 155/90 146/87 155/65 O2 Sat by Pulse 94 95 Oximetry - Labs CBC & Chem 7: 07/01/19 07:58 07/01/19 07:58 Labs: Abnormal lab results 07/02/19 07/02/19 07/02/19 Range/Units 05:54 13:27 13:39 POC Glucose 111 H 123 H 116 H (70-105)
[2019-07-03] MEDS: INSULIN LISPRO 100 UNIT/ML SUB-Q SCH ×2 (07:59→12:30)
[2019-07-03] MEDS: SCOPOLAMINE TRANSDERMAL PATCH 72 HR TD SCH (11:29)
[2019-07-03] MEDS: APIXABAN 2.5 MG TAB PO SCH ×2 (11:30→21:22)
[2019-07-03] MEDS: hydroCHLOROthiazide 25 MG TAB PO SCH (11:30)
[2019-07-03] MEDS: FAMOTIDINE 20 MG TAB PO SCH ×2 (11:30→21:21)
[2019-07-03] MEDS: predniSONE 10 MG TAB PO SCH (11:31)
[2019-07-03] MEDS: MULTIVITAMINS 5 ML ORAL LIQUID PO SCH (11:31)
[2019-07-03] MEDS: amLODIPine 10 MG TAB PO SCH (11:32)
[2019-07-03] MEDS: FERROUS SULFATE 308 MG (62mg Elemental Iron) / 7 ML ELIXIR PO SCH (11:33)
[2019-07-03] MEDS: POTASSIUM CHLORIDE 20 MEQ PACKET FEEDTUBE SCH (11:37)
--- NOTE | 2019-07-03 13:07 | Progress Note ---
Assessment and Plan /Febrile illness - spiked fever o/n - could be from aspiration pneumonitis - check blood Cx /Acute respiratory failure; vent dependent/status post trach and PEG Off ventilatory support, on T-piece ,trach care, nebulizers Pulmonary critical following /Persistent fevers; leukocytosis , resolved Internal jugular tunneled hemodialysis catheter removed ID evaluated , off antibiotics /Obesity hypoventilation syndrome Status post tracheostomy, titrate O2 sats to more than 90% /Status post cardiac arrest mild anoxic brain injury patient's mentation is improved ., EEG was negative for seizures and neurology evaluated /Severe malnutrition Dysphasia; dw with his mom, she is agreeable to PEG tube, GS consulted Dietitian input appreciated, continue tube feeds /Anemia of chronic disease : Closely monitor H&H and transfuse as needed. 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 Now Patient is on Eliquis /-Acute kidney injury due to ATN : Requiring dialysis Resolved, nephrology following. /Hypernatremia/Hypokalemia/ hypomagnesemia: Resolved /Morbid obesity; will need weight loss program upon discharge /DVT prophylaxis; scd /Eliquis Plan of care discussed with the patient and his nurse Physical therapy/occupational therapy when patient is stable Disposition ; home with home health versus placement when patient is stable. Social and insurance issues. Brief History 34-year-old man with morbid obesity was brought to the hospital for shortness of breath and insomnia. He was found to have severe hypoxia and bradycardia who then became pulseless, he was cyanotic and he was intubated after receiving CPR with 2 rounds of epinephrine. Patient was intubated, extubated and reintubated, unable to wean vent dependent, underwent trach and PEG on 06/22/2019, later weaned off vent on T piece alert and awake in mild distress. Discharge Planning per case management [social/insurance issues]. Hospitalist Physical General appearance: Present: mild distress, well-nourished, obese (morbidly obese), other (tracheostomy /T-piece) - EENT Eyes: Present: PERRL, EOM intact - Neck Neck: Present: supple, normal ROM - Respiratory Respiratory effort: normal Respiratory: bilateral: diminished, rales, rhonchi, negative: wheezing - Cardiovascular Rhythm: regular Heart Sounds: Present: S1 & S2 - Extremities Extremities: no ischemia, No edema - Abdominal General gastrointestinal: soft, non-tender, non-distended, normal bowel sounds, other (PEG tube in place) - Integumentary Integumentary: Present: clear, warm - Psychiatric Psychiatric: appropriate mood/affect, cooperative - Neurologic Neurologic: moves all extremities Subjective Date of service: 07/03/19 Principal diagnosis: anemia - LOw PLT Interval history: Patient seen and examined. Medical records and medication list reviewed. Patient remained minimally responsive on mechanical ventilation with trach febrile o/n Discussed plan of care at bedside with patient's RN. No family member at the bedside Objective - Constitutional Vitals: Vital Signs - 12hr 07/03/19 07/03/19 07/03/19 02:00 03:01 04:00 Temperature 100.0 F H Pulse Rate 98 H 103 H 100 H Pulse Rate [ 100 H From Monitor] Respiratory 26 H 33 H 17 Rate Blood Pressure 134/83 140/74 O2 Sat by Pulse 96 94 100 Oximetry 07/03/19 07/03/19 07/03/19 04:01 05:00 05:24 Temperature Pulse Rate 103 H 104 H 105 H Pulse Rate [ From Monitor] Respiratory 25 H 25 H Rate Blood Pressure 149/84 142/79 150/78 O2 Sat by Pulse 97 99 Oximetry 07/03/19 07/03/19 07/03/19 06:01 07:00 08:00 Temperature 99.5 F Pulse Rate 95 H 95 H Pulse Rate [ From Monitor] Respiratory 28 H 27 H Rate Blood Pressure 150/83 140/90 O2 Sat by Pulse 97 97 Oximetry 07/03/19 07/03/19 11:32 12:00 Temperature 99.6 F Pulse Rate 101 H Pulse Rate [ From Monitor] Respiratory Rate Blood Pressure 142/87 O2 Sat by Pulse Oximetry - Labs CBC & Chem 7: 07/01/19 07:58 07/01/19 07:58 Labs: Abnormal lab results 07/02/19 07/02/19 07/02/19 Range/Units 13:27 13:39 18:00 POC Glucose 123 H 116 H 118 H (70-105) 07/03/19 Range/Units 06:06 POC Glucose 127 H (70-105)
--- NOTE | 2019-07-03 15:09 | Progress Note ---
Assessment and Plan hilario and Plan 34 y/o male with acute hypoxic, hypercapnic respiratory failure now with trach and uncontrolled hypertension. 07/03/19: No change continue to have significant white frothy secretions requiring frequent suctioning. 07/02/19: Patient should not be transferred to the floor. Although his pulm status is stable, he is very high risk for decompensation and if the incident that happened last night, happened on the floor, that may have been his demise. Ok with right arm restraint for now. 07/01/2019: Continue current care. PT/OT. Work on discharge planning. steroids to 5 daily, will likely stop Friday or Friday. Stable but my concern is that if he goes to the floor, he will not get the proper suctioning needed. Will continue IMCU service 06/26/2019: Will discontinue vent from room. patient was placed on vent last night. Not sure why. Will place orders for continued T-piece. Appears he was doing well with no issues. If tolerates being off vent tonight, transition to step down tomorrow. Increase HCTZ to 25 06/25/2019: Continue T-piece today as tolerated. Only rest of vent if needed. If not needed tonight then will discontinue vent from room. Spoke with IR, and they will remove Perm cath today as this could be a cause of fevers. Follow up cultures and ID recs. Will increase Free H2O to [id number]. Change steroids to 10 PO starting tomorrow morning. Added scheduled BP meds. 06/24/2019: Will attempt T-piece later today, if tolerates, then will continue trial indefinitely. PT/OT will need to start seeing him again. Will drop steroids to 10 daily (PO) starting Friday morning. 06/23/2019: PSV all day today and tomorrow. Will start T-piece either tomorrow or Friday. Tolerating Feeds 06/22/2019: Patient scheduled for OR today. Plan as outlined in Dr. Saez's note from yesterday. Discussed with patient again this am. Really appreciate surgery help with this and the promptness of procedure. Will follow up post-op later today. 06/21/2019: Unfortunately re-intubated last week. Will need Trach and Peg, but I doubt peg will happen secondary to his size. Will discuss with surgery and maybe they can just put in a number 6 XLT from the start. I think he will get off the vent relatively quickly and can start to eat. This trach will be indefinite. I have explained this to him. I have not seen his family at the bedside during this admission but Im told they come in the evenings. 06/12/2019: Started HCTZ 50 daily and Labetalol 100 TID. Will increase Labetalol to 200 TID. Already on Clonidine patch. Continue Minoxidil. Will start to wean drip. PT/OT. Feeds through NG now that this is in place. Will need speech re-evaluation. Will order NT suctioning at least [id number] for the next 24 hours. 06/11/2019: Bipap at night and PRN. Na levels are increasing. Agree with D5W. Unable to place DH, several nurses tried. Will ask speech to come by and reassess now that patient is more willing to cooperate. . Continue PT/OT, sat up on side of bed yesterday. Continue IMCU monitoring for now. As stated below, patient was intubated for 37 days. Subjective Date of service: 07/03/19 Principal diagnosis: anemia - LOw PLT Interval history: Continue to have a lot of secretions requiring suctioning frequently. Remain awake and alert. Objective Vital Signs - 12hr 07/03/19 07/03/19 07/03/19 04:00 04:01 05:00 Temperature 100.0 F H Pulse Rate 100 H 103 H 104 H Pulse Rate [ 100 H From Monitor] Respiratory 17 25 H 25 H Rate Blood Pressure 149/84 142/79 O2 Sat by Pulse 100 97 99 Oximetry 07/03/19 07/03/19 07/03/19 05:24 06:01 07:00 Temperature Pulse Rate 105 H 95 H 95 H Pulse Rate [ From Monitor] Respiratory 28 H 27 H Rate Blood Pressure 150/78 150/83 140/90 O2 Sat by Pulse 97 97 Oximetry 07/03/19 07/03/19 07/03/19 08:00 08:01 09:01 Temperature 99.5 F Pulse Rate 95 H Pulse Rate [ From Monitor] Respiratory Rate Blood Pressure 123/92 124/84 O2 Sat by Pulse 97 99 Oximetry 07/03/19 07/03/19 07/03/19 10:00 11:00 11:32 Temperature Pulse Rate 94 H 93 H 101 H Pulse Rate [ From Monitor] Respiratory 31 H 21 Rate Blood Pressure 141/84 142/87 142/87 O2 Sat by Pulse 95 98 Oximetry 07/03/19 07/03/19 07/03/19 12:00 12:01 13:01 Temperature 99.6 F Pulse Rate 96 H 102 H Pulse Rate [ From Monitor] Respiratory 26 H 37 H Rate Blood Pressure 142/87 133/74 O2 Sat by Pulse 98 93 Oximetry Constitutional: other (morbidly obese male, critically ill on vent) Eyes: non-icteric ENT: oropharynx moist Neck: other (extremely large in circumference) Effort: normal Ascultation: Bilateral: diminished breath sounds (secondary to body habitus), rhonchi Cardiovascular: regular rate and rhythm (no mrg) Gastrointestinal: normoactive bowel sounds, soft, non-tender, other (obese) Integumentary: other (L hand is wrapped) Extremities: no cyanosis, pink and warm, other (1+ generalized edema) Neurologic: normal mental status, non-focal exam Psychiatric: mood appropriate, affect normal CBC and BMP: 07/01/19 07:58 07/01/19 07:58 ABG, PT/INR, D-dimer: ABG POC ABG pH 7.462 (7.35-7.45) H 06/05/19 03:52 ABG pH 7.469 pH Units (7.350-7.450) H 06/23/19 02:00 POC ABG pCO2 39.8 (35-45) 06/05/19 03:52 ABG pCO2 39.4 mm Hg 06/23/19 02:00 POC ABG pO2 86 (80-105) 06/05/19 03:52 ABG pO2 58.7 mm Hg (80.0-90.0) L 06/23/19 02:00 POC ABG HCO3 28.4 (22-26 mml/L) 06/05/19 03:52 POC ABG Total CO2 30 (23-27mmol/L) 06/05/19 03:52 POC ABG O2 Sat 97 06/05/19 03:52 ABG O2 Saturation 94.6 % (95.0-99.0) L 06/23/19 02:00 PT/INR, D-dimer PT 15.4 Sec. (12.2-14.9) H 05/01/19 Unknown INR 1.23 (0.87-1.13) H 05/01/19 Unknown Abnormal lab findings: Abnormal Labs 05/01/19 05/01/19 05/01/19 17:50 19:26 22:36 WBC RBC Hgb Hct MCV MCH MCHC RDW Plt Count Lymph % (Auto) [place] % (Auto) Eos % (Auto) Lymph # [place] # Eos # Seg Neutrophils % Seg Neuts % (Manual) Lymphocytes % (Manual) Monocytes % (Manual) Eosinophils % (Manual) Nucleated RBC % Seg Neutrophils # Seg Neutrophils # Man Lymphocytes # (Manual) Monocytes # (Manual) Eosinophils # (Manual) PT INR APTT Fibrinogen POC ABG pH 7.272 L 7.331 L ABG pH POC ABG pCO2 52.8 H POC ABG pO2 ABG pO2 ABG HCO3 ABG O2 Saturation ABG Base Excess ABG Hemoglobin Oxyhemoglobin Sodium 136 L Potassium 6.5 H* Chloride 97.2 L Carbon Dioxide BUN 60 H Creatinine Glucose 113 H POC Glucose Uric Acid Calcium Phosphorus Magnesium 2.40 H Iron TIBC AST 139 H ALT 154 H Total Creatine Kinase CK-MB (CK-2) Troponin T NT-Pro-B Natriuret Pep Total Protein Albumin 3.8 L Triglycerides HDL Cholesterol Folate Urine WBC (Auto) Urine Creatinine Urine Total Protein Vancomycin Trough 05/01/19 05/01/19 05/01/19 Unknown Unknown Unknown WBC 16.1 H RBC Hgb Hct MCV MCH MCHC RDW 17.2 H Plt Count Lymph % (Auto) [place] % (Auto) 9.6 H Eos % (Auto) Lymph # [place] # 1.5 H Eos # Seg Neutrophils % 73.0 H Seg Neuts % (Manual) Lymphocytes % (Manual) Monocytes % (Manual) Eosinophils % (Manual) Nucleated RBC % Seg Neutrophils # 11.7 H Seg Neutrophils # Man Lymphocytes # (Manual) Monocytes # (Manual) Eosinophils # (Manual) PT 15.4 H INR 1.23 H APTT 22.7 L Fibrinogen POC ABG pH ABG pH POC ABG pCO2 POC ABG pO2 ABG pO2 ABG HCO3 ABG O2 Saturation ABG Base Excess ABG Hemoglobin Oxyhemoglobin Sodium Potassium Chloride Carbon Dioxide BUN Creatinine Glucose POC Glucose Uric Acid Calcium Phosphorus Magnesium Iron TIBC AST ALT Total Creatine Kinase CK-MB (CK-2) Troponin T NT-Pro-B Natriuret Pep 6831 H Total Protein Albumin Triglycerides HDL Cholesterol Folate Urine WBC (Auto) Urine Creatinine Urine Total Protein Vancomycin Trough 05/01/19 05/02/19 05/02/19 Unknown 00:06 00:06 WBC RBC Hgb Hct MCV MCH MCHC RDW Plt Count Lymph % (Auto) [place] % (Auto) Eos % (Auto) Lymph # [place] # Eos # Seg Neutrophils % Seg Neuts % (Manual) Lymphocytes % (Manual) Monocytes % (Manual) Eosinophils % (Manual) Nucleated RBC % Seg Neutrophils # Seg Neutrophils # Man Lymphocytes # (Manual) Monocytes # (Manual) Eosinophils # (Manual) PT INR APTT Fibrinogen POC ABG pH ABG pH POC ABG pCO2 POC ABG pO2 ABG pO2 ABG HCO3 ABG O2 Saturation ABG Base Excess ABG Hemoglobin Oxyhemoglobin Sodium Potassium Chloride Carbon Dioxide BUN Creatinine Glucose POC Glucose Uric Acid Calcium Phosphorus 4.90 H Magnesium Iron TIBC AST ALT Total Creatine Kinase 226 H CK-MB (CK-2) 5.7 H Troponin T 0.044 H NT-Pro-B Natriuret Pep Total Protein Albumin Triglycerides 182 H HDL Cholesterol 18 L Folate Urine WBC (Auto) Urine Creatinine Urine Total Protein Vancomycin Trough 05/02/19 05/02/19 05/02/19 02:08 04:40 04:41 WBC 17.6 H RBC Hgb Hct MCV MCH 27 L MCHC RDW 17.4 H Plt Count Lymph % (Auto) 10.2 L [place] % (Auto) 11.0 H Eos % (Auto) Lymph # [place] # 1.9 H Eos # Seg Neutrophils % 78.0 H Seg Neuts % (Manual) Lymphocytes % (Manual) Monocytes % (Manual) Eosinophils % (Manual) Nucleated RBC % Seg Neutrophils # 13.8 H Seg Neutrophils # Man Lymphocytes # (Manual) Monocytes # (Manual) Eosinophils # (Manual) PT INR APTT Fibrinogen POC ABG pH ABG pH POC ABG pCO2 46.8 H POC ABG pO2 63 L ABG pO2 ABG HCO3 ABG O2 Saturation ABG Base Excess ABG Hemoglobin Oxyhemoglobin Sodium Potassium Chloride 96.3 L Carbon Dioxide BUN 63 H Creatinine 1.7 H Glucose POC Glucose Uric Acid Calcium Phosphorus Magnesium Iron TIBC AST ALT Total Creatine Kinase CK-MB (CK-2) Troponin T NT-Pro-B Natriuret Pep Total Protein Albumin Triglycerides HDL Cholesterol Folate Urine WBC (Auto) Urine Creatinine Urine Total Protein Vancomycin Trough 05/02/19 05/02/19 05/02/19 04:41 04:41 16:05 WBC RBC Hgb Hct MCV MCH MCHC RDW Plt Count Lymph % (Auto) [place] % (Auto) Eos % (Auto) Lymph # [place] # Eos # Seg Neutrophils % Seg Neuts % (Manual) Lymphocytes % (Manual) Monocytes % (Manual) Eosinophils % (Manual) Nucleated RBC % Seg Neutrophils # Seg Neutrophils # Man Lymphocytes # (Manual) Monocytes # (Manual) Eosinophils # (Manual) PT INR APTT Fibrinogen POC ABG pH ABG pH POC ABG pCO2 POC ABG pO2 ABG pO2 66.6 L ABG HCO3 31.9 H ABG O2 Saturation 92.5 L ABG Base Excess 5.8 H ABG Hemoglobin 13.3 L Oxyhemoglobin 90.6 L Sodium Potassium Chloride 97.2 L Carbon Dioxide BUN 61 H Creatinine 1.8 H Glucose POC Glucose Uric Acid Calcium Phosphorus Magnesium Iron TIBC AST ALT Total Creatine Kinase CK-MB (CK-2) 5.2 H Troponin T 0.067 H D NT-Pro-B Natriuret Pep Total Protein Albumin Triglycerides HDL Cholesterol Folate Urine WBC (Auto) Urine Creatinine Urine Total Protein Vancomycin Trough 05/02/19 05/03/19 05/03/19 20:39 04:35 05:05 WBC 11.8 H RBC Hgb Hct MCV MCH 27 L MCHC 31 L RDW 17.2 H Plt Count Lymph % (Auto) [place] % (Auto) Eos % (Auto) Lymph # [place] # Eos # Seg Neutrophils % Seg Neuts % (Manual) Lymphocytes % (Manual) Monocytes % (Manual) Eosinophils % (Manual) Nucleated RBC % Seg Neutrophils # Seg Neutrophils # Man Lymphocytes # (Manual) Monocytes # (Manual) Eosinophils # (Manual) PT INR APTT Fibrinogen POC ABG pH ABG pH POC ABG pCO2 53.6 H 54.0 H POC ABG pO2 55 L 63 L ABG pO2 ABG HCO3 ABG O2 Saturation ABG Base Excess ABG Hemoglobin Oxyhemoglobin Sodium Potassium Chloride Carbon Dioxide BUN Creatinine Glucose POC Glucose Uric Acid Calcium Phosphorus Magnesium Iron TIBC AST ALT Total Creatine Kinase CK-MB (CK-2) Troponin T NT-Pro-B Natriuret Pep Total Protein Albumin Triglycerides HDL Cholesterol Folate Urine WBC (Auto) Urine Creatinine Urine Total Protein Vancomycin Trough 05/03/19 05/03/19 05/03/19 05:05 10:55 16:48 WBC RBC Hgb Hct MCV MCH MCHC RDW Plt Count Lymph % (Auto) [place] % (Auto) Eos % (Auto) Lymph # [place] # Eos # Seg Neutrophils % Seg Neuts % (Manual) Lymphocytes % (Manual) Monocytes % (Manual) Eosinophils % (Manual) Nucleated RBC % Seg Neutrophils # Seg Neutrophils # Man Lymphocytes # (Manual) Monocytes # (Manual) Eosinophils # (Manual) PT INR APTT Fibrinogen POC ABG pH 7.604 H ABG pH POC ABG pCO2 POC ABG pO2 58 L ABG pO2 ABG HCO3 ABG O2 Saturation ABG Base Excess ABG Hemoglobin Oxyhemoglobin Sodium Potassium Chloride Carbon Dioxide BUN 52 H Creatinine 1.9 H Glucose 103 H POC Glucose Uric Acid Calcium Phosphorus Magnesium Iron TIBC AST ALT Total Creatine Kinase CK-MB (CK-2) Troponin T NT-Pro-B Natriuret Pep Total Protein Albumin Triglycerides HDL Cholesterol Folate Urine WBC (Auto) 33.0 H Urine Creatinine Urine Total Protein Vancomycin Trough 05/04/19 05/04/19 05/04/19 04:49 06:50 06:50 WBC 16.0 H RBC Hgb Hct MCV MCH 27 L MCHC 31 L RDW 17.8 H Plt Count Lymph % (Auto) [place] % (Auto) Eos % (Auto) Lymph # [place] # Eos # Seg Neutrophils % Seg Neuts % (Manual) Lymphocytes % (Manual) Monocytes % (Manual) Eosinophils % (Manual) Nucleated RBC % Seg Neutrophils # Seg Neutrophils # Man Lymphocytes # (Manual) Monocytes # (Manual) Eosinophils # (Manual) PT INR APTT Fibrinogen POC ABG pH 7.273 L ABG pH POC ABG pCO2 POC ABG pO2 ABG pO2 ABG HCO3 ABG O2 Saturation ABG Base Excess ABG Hemoglobin Oxyhemoglobin Sodium 148 H Potassium 5.5 H Chloride Carbon Dioxide BUN 53 H Creatinine 3.3 H D Glucose 106 H POC Glucose Uric Acid Calcium 8.3 L Phosphorus Magnesium Iron TIBC AST ALT Total Creatine Kinase CK-MB (CK-2) Troponin T NT-Pro-B Natriuret Pep Total Protein Albumin Triglycerides HDL Cholesterol Folate Urine WBC (Auto) Urine Creatinine Urine Total Protein Vancomycin Trough 05/05/19 05/05/19 05/05/19 00:05 04:30 05:00 WBC RBC Hgb Hct MCV MCH MCHC RDW Plt Count Lymph % (Auto) [place] % (Auto) Eos % (Auto) Lymph # [place] # Eos # Seg Neutrophils % Seg Neuts % (Manual) Lymphocytes % (Manual) Monocytes % (Manual) Eosinophils % (Manual) Nucleated RBC % Seg Neutrophils # Seg Neutrophils # Man Lymphocytes # (Manual) Monocytes # (Manual) Eosinophils # (Manual) PT INR APTT Fibrinogen POC ABG pH 7.225 L ABG pH POC ABG pCO2 > 70 H POC ABG pO2 ABG pO2 ABG HCO3 ABG O2 Saturation ABG Base Excess ABG Hemoglobin Oxyhemoglobin Sodium 151 H Potassium 5.1 H Chloride Carbon Dioxide BUN 64 H Creatinine 3.5 H Glucose 117 H POC Glucose 141 H Uric Acid Calcium 7.5 L Phosphorus Magnesium Iron TIBC AST 93 H ALT 65 H Total Creatine Kinase CK-MB (CK-2) Troponin T NT-Pro-B Natriuret Pep Total Protein Albumin 2.9 L Triglycerides HDL Cholesterol Folate Urine WBC (Auto) Urine Creatinine Urine Total Protein Vancomycin Trough 05/05/19 05/05/19 05/05/19 05:00 12:02 17:46 WBC 12.0 H RBC Hgb 11.3 L Hct MCV MCH 27 L MCHC 30 L RDW 18.4 H Plt Count Lymph % (Auto) 7.9 L [place] % (Auto) 10.2 H Eos % (Auto) Lymph # 1.0 L [place] # 1.2 H Eos # Seg Neutrophils % 80.8 H Seg Neuts % (Manual) Lymphocytes % (Manual) Monocytes % (Manual) Eosinophils % (Manual) Nucleated RBC % Seg Neutrophils # 9.7 H Seg Neutrophils # Man Lymphocytes # (Manual) Monocytes # (Manual) Eosinophils # (Manual) PT INR APTT Fibrinogen POC ABG pH ABG pH POC ABG pCO2 POC ABG pO2 ABG pO2 ABG HCO3 ABG O2 Saturation ABG Base Excess ABG Hemoglobin Oxyhemoglobin Sodium Potassium Chloride Carbon Dioxide BUN Creatinine Glucose POC Glucose 125 H 112 H Uric Acid Calcium Phosphorus Magnesium Iron TIBC AST ALT Total Creatine Kinase CK-MB (CK-2) Troponin T NT-Pro-B Natriuret Pep Total Protein Albumin Triglycerides HDL Cholesterol Folate Urine WBC (Auto) Urine Creatinine Urine Total Protein Vancomycin Trough 05/05/19 05/06/19 05/06/19 23:42 03:58 04:45 WBC 11.4 H RBC Hgb 10.7 L Hct 34.2 L MCV MCH 27 L MCHC 31 L RDW 16.9 H Plt Count Lymph % (Auto) [place] % (Auto) Eos % (Auto) Lymph # [place] # Eos # Seg Neutrophils % Seg Neuts % (Manual) Lymphocytes % (Manual) Monocytes % (Manual) Eosinophils % (Manual) Nucleated RBC % Seg Neutrophils # Seg Neutrophils # Man Lymphocytes # (Manual) Monocytes # (Manual) Eosinophils # (Manual) PT INR APTT Fibrinogen POC ABG pH ABG pH POC ABG pCO2 62.4 H POC ABG pO2 111 H ABG pO2 ABG HCO3 ABG O2 Saturation ABG Base Excess ABG Hemoglobin Oxyhemoglobin Sodium Potassium Chloride Carbon Dioxide BUN Creatinine Glucose POC Glucose 128 H Uric Acid Calcium Phosphorus Magnesium Iron TIBC AST ALT Total Creatine Kinase CK-MB (CK-2) Troponin T NT-Pro-B Natriuret Pep Total Protein Albumin Triglycerides HDL Cholesterol Folate Urine WBC (Auto) Urine Creatinine Urine Total Protein Vancomycin Trough 05/06/19 05/06/19 05/06/19 04:45 05:33 12:30 WBC RBC Hgb Hct MCV MCH MCHC RDW Plt Count Lymph % (Auto) [place] % (Auto) Eos % (Auto) Lymph # [place] # Eos # Seg Neutrophils % Seg Neuts % (Manual) Lymphocytes % (Manual) Monocytes % (Manual) Eosinophils % (Manual) Nucleated RBC % Seg Neutrophils # Seg Neutrophils # Man Lymphocytes # (Manual) Monocytes # (Manual) Eosinophils # (Manual) PT INR APTT Fibrinogen POC ABG pH ABG pH POC ABG pCO2 POC ABG pO2 ABG pO2 ABG HCO3 ABG O2 Saturation ABG Base Excess ABG Hemoglobin Oxyhemoglobin Sodium 149 H Potassium Chloride Carbon Dioxide 31 H BUN 67 H Creatinine 3.2 H Glucose 125 H POC Glucose 117 H 116 H Uric Acid Calcium 7.5 L Phosphorus Magnesium Iron TIBC AST ALT Total Creatine Kinase CK-MB (CK-2) Troponin T NT-Pro-B Natriuret Pep Total Protein Albumin Triglycerides HDL Cholesterol Folate Urine WBC (Auto) Urine Creatinine Urine Total Protein Vancomycin Trough 05/06/19 05/06/19 05/07/19 18:34 23:16 05:22 WBC RBC Hgb Hct MCV MCH MCHC RDW Plt Count Lymph % (Auto) [place] % (Auto) Eos % (Auto) Lymph # [place] # Eos # Seg Neutrophils % Seg Neuts % (Manual) Lymphocytes % (Manual) Monocytes % (Manual) Eosinophils % (Manual) Nucleated RBC % Seg Neutrophils # Seg Neutrophils # Man Lymphocytes # (Manual) Monocytes # (Manual) Eosinophils # (Manual) PT INR APTT Fibrinogen POC ABG pH ABG pH POC ABG pCO2 POC ABG pO2 ABG pO2 ABG HCO3 ABG O2 Saturation ABG Base Excess ABG Hemoglobin Oxyhemoglobin Sodium Potassium Chloride Carbon Dioxide BUN Creatinine Glucose POC Glucose 128 H 143 H 166 H Uric Acid Calcium Phosphorus Magnesium Iron TIBC AST ALT Total Creatine Kinase CK-MB (CK-2) Troponin T NT-Pro-B Natriuret Pep Total Protein Albumin Triglycerides HDL Cholesterol Folate Urine WBC (Auto) Urine Creatinine Urine Total Protein Vancomycin Trough 05/07/19 05/07/19 05/07/19 06:33 07:03 09:35 WBC RBC Hgb Hct MCV MCH MCHC RDW Plt Count Lymph % (Auto) [place] % (Auto) Eos % (Auto) Lymph # [place] # Eos # Seg Neutrophils % Seg Neuts % (Manual) Lymphocytes % (Manual) Monocytes % (Manual) Eosinophils % (Manual) Nucleated RBC % Seg Neutrophils # Seg Neutrophils # Man Lymphocytes # (Manual) Monocytes # (Manual) Eosinophils # (Manual) PT INR APTT Fibrinogen POC ABG pH 7.263 L 7.288 L ABG pH POC ABG pCO2 POC ABG pO2 51 L 56 L ABG pO2 ABG HCO3 ABG O2 Saturation ABG Base Excess ABG Hemoglobin Oxyhemoglobin Sodium Potassium Chloride Carbon Dioxide BUN 76 H Creatinine 3.2 H Glucose 147 H POC Glucose Uric Acid Calcium 7.9 L Phosphorus Magnesium Iron TIBC AST ALT Total Creatine Kinase CK-MB (CK-2) Troponin T NT-Pro-B Natriuret Pep Total Protein Albumin Triglycerides HDL Cholesterol Folate Urine WBC (Auto) Urine Creatinine Urine Total Protein Vancomycin Trough 05/07/19 05/07/19 05/07/19 09:35 12:17 13:45 WBC 13.4 H RBC Hgb 11.6 L Hct MCV MCH 27 L MCHC 31 L RDW 17.5 H Plt Count Lymph % (Auto) [place] % (Auto) Eos % (Auto) Lymph # [place] # Eos # Seg Neutrophils % Seg Neuts % (Manual) Lymphocytes % (Manual) Monocytes % (Manual) Eosinophils % (Manual) Nucleated RBC % Seg Neutrophils # Seg Neutrophils # Man Lymphocytes # (Manual) Monocytes # (Manual) Eosinophils # (Manual) PT INR APTT Fibrinogen POC ABG pH ABG pH POC ABG pCO2 POC ABG pO2 ABG pO2 ABG HCO3 ABG O2 Saturation ABG Base Excess ABG Hemoglobin Oxyhemoglobin Sodium Potassium Chloride Carbon Dioxide BUN Creatinine Glucose POC Glucose 130 H Uric Acid 18.0 H Calcium Phosphorus Magnesium Iron TIBC AST ALT Total Creatine Kinase CK-MB (CK-2) Troponin T NT-Pro-B Natriuret Pep Total Protein Albumin Triglycerides HDL Cholesterol Folate Urine WBC (Auto) Urine Creatinine Urine Total Protein Vancomycin Trough 05/07/19 05/07/19 05/08/19 17:39 22:40 05:06 WBC RBC Hgb Hct MCV MCH MCHC RDW Plt Count Lymph % (Auto) [place] % (Auto) Eos % (Auto) Lymph # [place] # Eos # Seg Neutrophils % Seg Neuts % (Manual) Lymphocytes % (Manual) Monocytes % (Manual) Eosinophils % (Manual) Nucleated RBC % Seg Neutrophils # Seg Neutrophils # Man Lymphocytes # (Manual) Monocytes # (Manual) Eosinophils # (Manual) PT INR APTT Fibrinogen POC ABG pH ABG pH POC ABG pCO2 POC ABG pO2 ABG pO2 ABG HCO3 ABG O2 Saturation ABG Base Excess ABG Hemoglobin Oxyhemoglobin Sodium Potassium Chloride Carbon Dioxide BUN Creatinine Glucose POC Glucose 116 H 148 H Uric Acid Calcium Phosphorus Magnesium Iron TIBC AST ALT Total Creatine Kinase CK-MB (CK-2) Troponin T NT-Pro-B Natriuret Pep Total Protein Albumin Triglycerides HDL Cholesterol Folate Urine WBC (Auto) Urine Creatinine 292.8 H Urine Total Protein 269 H Vancomycin Trough 05/08/19 05/08/19 05/08/19 05:32 11:28 13:48 WBC RBC Hgb Hct MCV MCH MCHC RDW Plt Count Lymph % (Auto) [place] % (Auto) Eos % (Auto) Lymph # [place] # Eos # Seg Neutrophils % Seg Neuts % (Manual) Lymphocytes % (Manual) Monocytes % (Manual) Eosinophils % (Manual) Nucleated RBC % Seg Neutrophils # Seg Neutrophils # Man Lymphocytes # (Manual) Monocytes # (Manual) Eosinophils # (Manual) PT INR APTT Fibrinogen POC ABG pH ABG pH POC ABG pCO2 45.4 H POC ABG pO2 64 L ABG pO2 ABG HCO3 ABG O2 Saturation ABG Base Excess ABG Hemoglobin Oxyhemoglobin Sodium Potassium Chloride Carbon Dioxide BUN 73 H Creatinine 2.7 H Glucose 127 H POC Glucose 107 H Uric Acid Calcium 7.6 L Phosphorus Magnesium Iron TIBC AST ALT Total Creatine Kinase CK-MB (CK-2) Troponin T NT-Pro-B Natriuret Pep Total Protein Albumin Triglycerides HDL Cholesterol Folate Urine WBC (Auto) Urine Creatinine Urine Total Protein Vancomycin Trough 05/08/19 05/09/19 05/09/19 17:48 04:50 04:53 WBC RBC 3.07 L Hgb 8.5 L D Hct 29.3 L D MCV 96 H MCH MCHC 29 L RDW 18.1 H Plt Count Lymph % (Auto) [place] % (Auto) Eos % (Auto) Lymph # [place] # Eos # Seg Neutrophils % Seg Neuts % (Manual) Lymphocytes % (Manual) Monocytes % (Manual) Eosinophils % (Manual) Nucleated RBC % Seg Neutrophils # Seg Neutrophils # Man Lymphocytes # (Manual) Monocytes # (Manual) Eosinophils # (Manual) PT INR APTT Fibrinogen POC ABG pH 7.316 L ABG pH POC ABG pCO2 66.0 H POC ABG pO2 69 L ABG pO2 ABG HCO3 ABG O2 Saturation ABG Base Excess ABG Hemoglobin Oxyhemoglobin Sodium Potassium Chloride Carbon Dioxide BUN Creatinine Glucose POC Glucose 155 H Uric Acid Calcium Phosphorus Magnesium Iron TIBC AST ALT Total Creatine Kinase CK-MB (CK-2) Troponin T NT-Pro-B Natriuret Pep Total Protein Albumin Triglycerides HDL Cholesterol Folate Urine WBC (Auto) Urine Creatinine Urine Total Protein Vancomycin Trough 05/09/19 05/09/19 05/09/19 05:46 07:24 12:10 WBC RBC Hgb Hct MCV MCH MCHC RDW Plt Count Lymph % (Auto) [place] % (Auto) Eos % (Auto) Lymph # [place] # Eos # Seg Neutrophils % Seg Neuts % (Manual) Lymphocytes % (Manual) Monocytes % (Manual) Eosinophils % (Manual) Nucleated RBC % Seg Neutrophils # Seg Neutrophils # Man Lymphocytes # (Manual) Monocytes # (Manual) Eosinophils # (Manual) PT INR APTT Fibrinogen POC ABG pH ABG pH POC ABG pCO2 POC ABG pO2 ABG pO2 ABG HCO3 ABG O2 Saturation ABG Base Excess ABG Hemoglobin Oxyhemoglobin Sodium Potassium Chloride Carbon Dioxide BUN 73 H Creatinine 2.4 H Glucose 153 H POC Glucose 123 H 148 H Uric Acid Calcium 8.2 L Phosphorus Magnesium Iron TIBC AST 45 H ALT Total Creatine Kinase CK-MB (CK-2) Troponin T NT-Pro-B Natriuret Pep Total Protein 6.0 L Albumin 1.9 L Triglycerides HDL Cholesterol Folate Urine WBC (Auto) Urine Creatinine Urine Total Protein Vancomycin Trough 05/09/19 05/09/19 05/10/19 18:23 23:26 04:52 WBC RBC Hgb Hct MCV MCH MCHC RDW Plt Count Lymph % (Auto) [place] % (Auto) Eos % (Auto) Lymph # [place] # Eos # Seg Neutrophils % Seg Neuts % (Manual) Lymphocytes % (Manual) Monocytes % (Manual) Eosinophils % (Manual) Nucleated RBC % Seg Neutrophils # Seg Neutrophils # Man Lymphocytes # (Manual) Monocytes # (Manual) Eosinophils # (Manual) PT INR APTT Fibrinogen POC ABG pH 7.305 L ABG pH POC ABG pCO2 62.6 H POC ABG pO2 ABG pO2 ABG HCO3 ABG O2 Saturation ABG Base Excess ABG Hemoglobin Oxyhemoglobin Sodium Potassium Chloride Carbon Dioxide BUN Creatinine Glucose POC Glucose 147 H 121 H Uric Acid Calcium Phosphorus Magnesium Iron TIBC AST ALT Total Creatine Kinase CK-MB (CK-2) Troponin T NT-Pro-B Natriuret Pep Total Protein Albumin Triglycerides HDL Cholesterol Folate Urine WBC (Auto) Urine Creatinine Urine Total Protein Vancomycin Trough 05/10/19 05/10/19 05/10/19 05:00 05:00 05:50 WBC RBC Hgb 10.3 L Hct 33.7 L MCV MCH 27 L MCHC 31 L RDW 17.0 H Plt Count Lymph % (Auto) [place] % (Auto) Eos % (Auto) Lymph # [place] # Eos # Seg Neutrophils % Seg Neuts % (Manual) Lymphocytes % (Manual) Monocytes % (Manual) Eosinophils % (Manual) Nucleated RBC % Seg Neutrophils # Seg Neutrophils # Man Lymphocytes # (Manual) Monocytes # (Manual) Eosinophils # (Manual) PT INR APTT Fibrinogen POC ABG pH ABG pH POC ABG pCO2 POC ABG pO2 ABG pO2 ABG HCO3 ABG O2 Saturation ABG Base Excess ABG Hemoglobin Oxyhemoglobin Sodium 147 H Potassium Chloride Carbon Dioxide BUN 70 H Creatinine 2.6 H Glucose 155 H POC Glucose 158 H Uric Acid Calcium 8.2 L Phosphorus Magnesium Iron TIBC AST ALT Total Creatine Kinase CK-MB (CK-2) Troponin T NT-Pro-B Natriuret Pep Total Protein 6.1 L Albumin 2.5 L Triglycerides HDL Cholesterol Folate Urine WBC (Auto) Urine Creatinine Urine Total Protein Vancomycin Trough 05/10/19 05/11/19 05/11/19 13:14 07:26 11:40 WBC RBC Hgb Hct MCV MCH MCHC RDW Plt Count Lymph % (Auto) [place] % (Auto) Eos % (Auto) Lymph # [place] # Eos # Seg Neutrophils % Seg Neuts % (Manual) Lymphocytes % (Manual) Monocytes % (Manual) Eosinophils % (Manual) Nucleated RBC % Seg Neutrophils # Seg Neutrophils # Man Lymphocytes # (Manual) Monocytes # (Manual) Eosinophils # (Manual) PT INR APTT Fibrinogen POC ABG pH ABG pH POC ABG pCO2 48.0 H POC ABG pO2 58 L ABG pO2 ABG HCO3 ABG O2 Saturation ABG Base Excess ABG Hemoglobin Oxyhemoglobin Sodium 147 H Potassium Chloride 107.2 H Carbon Dioxide BUN 67 H Creatinine 2.6 H Glucose 121 H POC Glucose 159 H Uric Acid Calcium Phosphorus Magnesium Iron TIBC AST ALT Total Creatine Kinase CK-MB (CK-2) Troponin T NT-Pro-B Natriuret Pep Total Protein Albumin Triglycerides HDL Cholesterol Folate Urine WBC (Auto) Urine Creatinine Urine Total Protein Vancomycin Trough 05/11/19 05/11/19 05/12/19 18:13 23:46 04:40 WBC RBC Hgb Hct MCV MCH MCHC RDW Plt Count Lymph % (Auto) [place] % (Auto) Eos % (Auto) Lymph # [place] # Eos # Seg Neutrophils % Seg Neuts % (Manual) Lymphocytes % (Manual) Monocytes % (Manual) Eosinophils % (Manual) Nucleated RBC % Seg Neutrophils # Seg Neutrophils # Man Lymphocytes # (Manual) Monocytes # (Manual) Eosinophils # (Manual) PT INR APTT Fibrinogen POC ABG pH ABG pH 7.264 L POC ABG pCO2 POC ABG pO2 ABG pO2 66.8 L ABG HCO3 31.0 H ABG O2 Saturation 92.0 L ABG Base Excess ABG Hemoglobin 10.3 L Oxyhemoglobin 90.1 L Sodium Potassium Chloride Carbon Dioxide BUN Creatinine Glucose POC Glucose 120 H 121 H Uric Acid Calcium Phosphorus Magnesium Iron TIBC AST ALT Total Creatine Kinase CK-MB (CK-2) Troponin T NT-Pro-B Natriuret Pep Total Protein Albumin Triglycerides HDL Cholesterol Folate Urine WBC (Auto) Urine Creatinine Urine Total Protein Vancomycin Trough 05/12/19 05/12/19 05/12/19 04:45 04:45 11:14 WBC RBC Hgb 10.2 L Hct 32.4 L MCV MCH MCHC 31 L RDW 17.2 H Plt Count Lymph % (Auto) [place] % (Auto) Eos % (Auto) Lymph # [place] # Eos # Seg Neutrophils % Seg Neuts % (Manual) Lymphocytes % (Manual) Monocytes % (Manual) Eosinophils % (Manual) Nucleated RBC % Seg Neutrophils # Seg Neutrophils # Man Lymphocytes # (Manual) Monocytes # (Manual) Eosinophils # (Manual) PT INR APTT Fibrinogen POC ABG pH 7.284 L ABG pH POC ABG pCO2 67.8 H POC ABG pO2 ABG pO2 ABG HCO3 ABG O2 Saturation ABG Base Excess ABG Hemoglobin Oxyhemoglobin Sodium Potassium Chloride Carbon Dioxide BUN 63 H Creatinine 2.4 H Glucose 110 H POC Glucose Uric Acid Calcium Phosphorus Magnesium Iron TIBC AST ALT Total Creatine Kinase CK-MB (CK-2) Troponin T NT-Pro-B Natriuret Pep Total Protein Albumin Triglycerides HDL Cholesterol Folate Urine WBC (Auto) Urine Creatinine Urine Total Protein Vancomycin Trough 05/12/19 05/12/19 05/13/19 11:44 23:11 04:30 WBC RBC Hgb Hct MCV MCH MCHC RDW Plt Count Lymph % (Auto) [place] % (Auto) Eos % (Auto) Lymph # [place] # Eos # Seg Neutrophils % Seg Neuts % (Manual) Lymphocytes % (Manual) Monocytes % (Manual) Eosinophils % (Manual) Nucleated RBC % Seg Neutrophils # Seg Neutrophils # Man Lymphocytes # (Manual) Monocytes # (Manual) Eosinophils # (Manual) PT INR APTT Fibrinogen POC ABG pH ABG pH 7.288 L POC ABG pCO2 POC ABG pO2 ABG pO2 109.7 H ABG HCO3 30.9 H ABG O2 Saturation ABG Base Excess 3.2 H ABG Hemoglobin 9.6 L Oxyhemoglobin Sodium Potassium Chloride Carbon Dioxide BUN Creatinine Glucose POC Glucose 126 H 147 H Uric Acid Calcium Phosphorus Magnesium Iron TIBC AST ALT Total Creatine Kinase CK-MB (CK-2) Troponin T NT-Pro-B Natriuret Pep Total Protein Albumin Triglycerides HDL Cholesterol Folate Urine WBC (Auto) Urine Creatinine Urine Total Protein Vancomycin Trough 05/13/19 05/13/19 05/14/19 06:27 11:58 04:00 WBC RBC 3.16 L Hgb 9.3 L Hct 27.9 L MCV MCH MCHC RDW 17.1 H Plt Count Lymph % (Auto) [place] % (Auto) Eos % (Auto) Lymph # [place] # Eos # Seg Neutrophils % Seg Neuts % (Manual) Lymphocytes % (Manual) Monocytes % (Manual) Eosinophils % (Manual) Nucleated RBC % Seg Neutrophils # Seg Neutrophils # Man Lymphocytes # (Manual) Monocytes # (Manual) Eosinophils # (Manual) PT INR APTT Fibrinogen POC ABG pH ABG pH POC ABG pCO2 POC ABG pO2 ABG pO2 ABG HCO3 ABG O2 Saturation ABG Base Excess ABG Hemoglobin Oxyhemoglobin Sodium Potassium Chloride Carbon Dioxide BUN Creatinine Glucose POC Glucose 113 H 130 H Uric Acid Calcium Phosphorus Magnesium Iron TIBC AST ALT Total Creatine Kinase CK-MB (CK-2) Troponin T NT-Pro-B Natriuret Pep Total Protein Albumin Triglycerides HDL Cholesterol Folate Urine WBC (Auto) Urine Creatinine Urine Total Protein Vancomycin Trough 05/14/19 05/14/19 05/14/19 04:00 04:34 05:32 WBC RBC Hgb Hct MCV MCH MCHC RDW Plt Count Lymph % (Auto) [place] % (Auto) Eos % (Auto) Lymph # [place] # Eos # Seg Neutrophils % Seg Neuts % (Manual) Lymphocytes % (Manual) Monocytes % (Manual) Eosinophils % (Manual) Nucleated RBC % Seg Neutrophils # Seg Neutrophils # Man Lymphocytes # (Manual) Monocytes # (Manual) Eosinophils # (Manual) PT INR APTT Fibrinogen POC ABG pH 7.328 L ABG pH POC ABG pCO2 61.7 H POC ABG pO2 ABG pO2 ABG HCO3 ABG O2 Saturation ABG Base Excess ABG Hemoglobin Oxyhemoglobin Sodium 135 L D Potassium Chloride Carbon Dioxide BUN 57 H Creatinine 2.2 H Glucose 115 H POC Glucose 115 H Uric Acid Calcium 8.1 L Phosphorus Magnesium Iron TIBC AST ALT Total Creatine Kinase CK-MB (CK-2) Troponin T NT-Pro-B Natriuret Pep Total Protein Albumin Triglycerides HDL Cholesterol Folate Urine WBC (Auto) Urine Creatinine Urine Total Protein Vancomycin Trough 05/14/19 05/15/19 05/15/19 12:11 05:10 05:24 WBC RBC Hgb Hct MCV MCH MCHC RDW Plt Count Lymph % (Auto) [place] % (Auto) Eos % (Auto) Lymph # [place] # Eos # Seg Neutrophils % Seg Neuts % (Manual) Lymphocytes % (Manual) Monocytes % (Manual) Eosinophils % (Manual) Nucleated RBC % Seg Neutrophils # Seg Neutrophils # Man Lymphocytes # (Manual) Monocytes # (Manual) Eosinophils # (Manual) PT INR APTT Fibrinogen POC ABG pH ABG pH 7.342 L POC ABG pCO2 POC ABG pO2 ABG pO2 79.1 L ABG HCO3 28.2 H ABG O2 Saturation ABG Base Excess ABG Hemoglobin 7.0 L Oxyhemoglobin 94.4 L Sodium Potassium Chloride Carbon Dioxide BUN Creatinine Glucose POC Glucose 110 H 116 H Uric Acid Calcium Phosphorus Magnesium Iron TIBC AST ALT Total Creatine Kinase CK-MB (CK-2) Troponin T NT-Pro-B Natriuret Pep Total Protein Albumin Triglycerides HDL Cholesterol Folate Urine WBC (Auto) Urine Creatinine Urine Total Protein Vancomycin Trough 05/15/19 05/15/19 05/16/19 09:00 18:12 04:50 WBC RBC Hgb Hct MCV MCH MCHC RDW Plt Count Lymph % (Auto) [place] % (Auto) Eos % (Auto) Lymph # [place] # Eos # Seg Neutrophils % Seg Neuts % (Manual) Lymphocytes % (Manual) Monocytes % (Manual) Eosinophils % (Manual) Nucleated RBC % Seg Neutrophils # Seg Neutrophils # Man Lymphocytes # (Manual) Monocytes # (Manual) Eosinophils # (Manual) PT INR APTT Fibrinogen POC ABG pH ABG pH 7.250 L POC ABG pCO2 POC ABG pO2 ABG pO2 76.4 L ABG HCO3 ABG O2 Saturation 94.6 L ABG Base Excess -3.1 L ABG Hemoglobin 9.7 L Oxyhemoglobin 92.4 L Sodium Potassium Chloride Carbon Dioxide BUN Creatinine Glucose POC Glucose 110 H Uric Acid Calcium Phosphorus Magnesium Iron TIBC AST ALT Total Creatine Kinase CK-MB (CK-2) Troponin T NT-Pro-B Natriuret Pep Total Protein Albumin Triglycerides HDL Cholesterol Folate Urine WBC (Auto) Urine Creatinine Urine Total Protein Vancomycin Trough 20.5 H 05/16/19 05/16/19 05/17/19 05:50 05:50 04:20 WBC RBC 3.36 L 3.44 L Hgb 9.4 L 9.3 L Hct 29.1 L 29.7 L MCV MCH 27 L MCHC 31 L RDW 17.6 H 17.6 H Plt Count Lymph % (Auto) [place] % (Auto) Eos % (Auto) Lymph # [place] # Eos # Seg Neutrophils % Seg Neuts % (Manual) 77.0 H Lymphocytes % (Manual) 5.0 L Monocytes % (Manual) Eosinophils % (Manual) 10.0 H Nucleated RBC % Seg Neutrophils # Seg Neutrophils # Man Lymphocytes # (Manual) 0.5 L Monocytes # (Manual) Eosinophils # (Manual) 0.9 H PT INR APTT Fibrinogen POC ABG pH ABG pH POC ABG pCO2 POC ABG pO2 ABG pO2 ABG HCO3 ABG O2 Saturation ABG Base Excess ABG Hemoglobin Oxyhemoglobin Sodium Potassium Chloride Carbon Dioxide BUN 83 H Creatinine 4.4 H D Glucose 118 H POC Glucose Uric Acid Calcium Phosphorus Magnesium Iron TIBC AST ALT Total Creatine Kinase CK-MB (CK-2) Troponin T NT-Pro-B Natriuret Pep Total Protein Albumin Triglycerides HDL Cholesterol Folate Urine WBC (Auto) Urine Creatinine Urine Total Protein Vancomycin Trough 05/17/19 05/17/19 05/18/19 04:30 Unknown 01:50 WBC RBC 3.49 L Hgb 9.4 L Hct 30.0 L MCV MCH 27 L MCHC 31 L RDW 17.8 H Plt Count Lymph % (Auto) 7.9 L [place] % (Auto) 15.4 H Eos % (Auto) 6.3 H Lymph # 0.7 L [place] # 1.4 H Eos # 0.6 H Seg Neutrophils % 70.2 H Seg Neuts % (Manual) Lymphocytes % (Manual) Monocytes % (Manual) Eosinophils % (Manual) Nucleated RBC % Seg Neutrophils # Seg Neutrophils # Man Lymphocytes # (Manual) Monocytes # (Manual) Eosinophils # (Manual) PT INR APTT Fibrinogen POC ABG pH ABG pH 7.272 L POC ABG pCO2 POC ABG pO2 ABG pO2 75.7 L ABG HCO3 ABG O2 Saturation 93.8 L ABG Base Excess -3.0 L ABG Hemoglobin 7.8 L Oxyhemoglobin 91.6 L Sodium Potassium 5.2 H Chloride Carbon Dioxide BUN 96 H Creatinine 5.7 H Glucose 112 H POC Glucose Uric Acid Calcium Phosphorus Magnesium Iron TIBC AST ALT Total Creatine Kinase CK-MB (CK-2) Troponin T NT-Pro-B Natriuret Pep Total Protein Albumin Triglycerides 173 H HDL Cholesterol Folate Urine WBC (Auto) Urine Creatinine Urine Total Protein Vancomycin Trough 05/18/19 05/18/19 05/18/19 01:50 04:41 05:24 WBC RBC Hgb Hct MCV MCH MCHC RDW Plt Count Lymph % (Auto) [place] % (Auto) Eos % (Auto) Lymph # [place] # Eos # Seg Neutrophils % Seg Neuts % (Manual) Lymphocytes % (Manual) Monocytes % (Manual) Eosinophils % (Manual) Nucleated RBC % Seg Neutrophils # Seg Neutrophils # Man Lymphocytes # (Manual) Monocytes # (Manual) Eosinophils # (Manual) PT INR APTT Fibrinogen POC ABG pH 7.260 L ABG pH POC ABG pCO2 54.9 H POC ABG pO2 ABG pO2 ABG HCO3 ABG O2 Saturation ABG Base Excess ABG Hemoglobin Oxyhemoglobin Sodium Potassium 5.6 H Chloride Carbon Dioxide BUN 104 H Creatinine 6.6 H Glucose 107 H POC Glucose 106 H Uric Acid Calcium Phosphorus Magnesium Iron TIBC AST ALT Total Creatine Kinase CK-MB (CK-2) Troponin T NT-Pro-B Natriuret Pep Total Protein Albumin Triglycerides HDL Cholesterol Folate Urine WBC (Auto) Urine Creatinine Urine Total Protein Vancomycin Trough 05/18/19 05/18/19 05/19/19 11:34 23:26 04:06 WBC RBC 3.22 L Hgb 8.8 L Hct 27.3 L MCV MCH 27 L MCHC RDW 17.5 H Plt Count Lymph % (Auto) [place] % (Auto) Eos % (Auto) Lymph # [place] # Eos # Seg Neutrophils % Seg Neuts % (Manual) 74.0 H Lymphocytes % (Manual) 4.0 L Monocytes % (Manual) 11.0 H Eosinophils % (Manual) 7.0 H Nucleated RBC % 1.0 H Seg Neutrophils # Seg Neutrophils # Man Lymphocytes # (Manual) 0.3 L Monocytes # (Manual) 0.9 H Eosinophils # (Manual) 0.6 H PT INR APTT Fibrinogen POC ABG pH ABG pH POC ABG pCO2 POC ABG pO2 ABG pO2 ABG HCO3 ABG O2 Saturation ABG Base Excess ABG Hemoglobin Oxyhemoglobin Sodium Potassium Chloride Carbon Dioxide BUN Creatinine Glucose POC Glucose 152 H 112 H Uric Acid Calcium Phosphorus Magnesium Iron TIBC AST ALT Total Creatine Kinase CK-MB (CK-2) Troponin T NT-Pro-B Natriuret Pep Total Protein Albumin Triglycerides HDL Cholesterol Folate Urine WBC (Auto) Urine Creatinine Urine Total Protein Vancomycin Trough 05/19/19 05/19/19 05/20/19 04:06 06:00 04:00 WBC RBC 3.40 L Hgb 9.2 L Hct 28.6 L MCV MCH 27 L MCHC RDW 17.6 H Plt Count Lymph % (Auto) [place] % (Auto) Eos % (Auto) Lymph # [place] # Eos # Seg Neutrophils % Seg Neuts % (Manual) Lymphocytes % (Manual) 11.0 L Monocytes % (Manual) Eosinophils % (Manual) 14.0 H Nucleated RBC % Seg Neutrophils # Seg Neutrophils # Man Lymphocytes # (Manual) 1.1 L Monocytes # (Manual) Eosinophils # (Manual) 1.4 H PT INR APTT Fibrinogen POC ABG pH ABG pH 7.315 L POC ABG pCO2 POC ABG pO2 ABG pO2 ABG HCO3 ABG O2 Saturation ABG Base Excess ABG Hemoglobin 6.7 L Oxyhemoglobin 94.1 L Sodium Potassium 5.2 H Chloride Carbon Dioxide 21 L BUN 110 H Creatinine 7.2 H Glucose POC Glucose Uric Acid Calcium 8.3 L Phosphorus Magnesium Iron TIBC AST ALT Total Creatine Kinase CK-MB (CK-2) Troponin T NT-Pro-B Natriuret Pep Total Protein Albumin Triglycerides HDL Cholesterol Folate Urine WBC (Auto) Urine Creatinine Urine Total Protein Vancomycin Trough 05/20/19 05/20/19 05/20/19 04:00 05:48 12:00 WBC RBC Hgb Hct MCV MCH MCHC RDW Plt Count Lymph % (Auto) [place] % (Auto) Eos % (Auto) Lymph # [place] # Eos # Seg Neutrophils % Seg Neuts % (Manual) Lymphocytes % (Manual) Monocytes % (Manual) Eosinophils % (Manual) Nucleated RBC % Seg Neutrophils # Seg Neutrophils # Man Lymphocytes # (Manual) Monocytes # (Manual) Eosinophils # (Manual) PT INR APTT Fibrinogen POC ABG pH ABG pH 7.281 L POC ABG pCO2 POC ABG pO2 ABG pO2 78.7 L ABG HCO3 ABG O2 Saturation 94.5 L ABG Base Excess -3.0 L ABG Hemoglobin 9.9 L Oxyhemoglobin 92.5 L Sodium 136 L Potassium 5.7 H Chloride 96.3 L Carbon Dioxide BUN 125 H Creatinine 8.3 H Glucose 106 H POC Glucose Uric Acid Calcium Phosphorus Magnesium Iron TIBC AST ALT Total Creatine Kinase CK-MB (CK-2) Troponin T NT-Pro-B Natriuret Pep Total Protein Albumin Triglycerides HDL Cholesterol Folate Urine WBC (Auto) 26.0 H Urine Creatinine Urine Total Protein Vancomycin Trough 05/21/19 05/21/19 05/21/19 04:33 05:20 Unknown WBC RBC 3.38 L Hgb 9.1 L Hct 28.5 L MCV MCH 27 L MCHC RDW 17.4 H Plt Count Lymph % (Auto) [place] % (Auto) Eos % (Auto) Lymph # [place] # Eos # Seg Neutrophils % Seg Neuts % (Manual) 71.0 H Lymphocytes % (Manual) 1.0 L Monocytes % (Manual) 11.0 H Eosinophils % (Manual) 6.0 H Nucleated RBC % Seg Neutrophils # Seg Neutrophils # Man Lymphocytes # (Manual) 0.1 L Monocytes # (Manual) 1.0 H Eosinophils # (Manual) 0.6 H PT INR APTT Fibrinogen POC ABG pH 7.315 L ABG pH POC ABG pCO2 57.8 H POC ABG pO2 68 L ABG pO2 ABG HCO3 ABG O2 Saturation ABG Base Excess ABG Hemoglobin Oxyhemoglobin Sodium Potassium Chloride 96.3 L Carbon Dioxide BUN 102 H Creatinine 7.0 H Glucose 103 H POC Glucose Uric Acid Calcium Phosphorus Magnesium Iron TIBC AST ALT Total Creatine Kinase CK-MB (CK-2) Troponin T NT-Pro-B Natriuret Pep Total Protein Albumin Triglycerides HDL Cholesterol Folate Urine WBC (Auto) Urine Creatinine Urine Total Protein Vancomycin Trough 05/22/19 05/22/19 05/22/19 03:54 06:25 06:25 WBC RBC 3.22 L Hgb 8.6 L Hct 27.0 L MCV MCH 27 L MCHC RDW 17.5 H Plt Count Lymph % (Auto) [place] % (Auto) 16.2 H Eos % (Auto) 10.8 H Lymph # [place] # 1.3 H Eos # 0.9 H Seg Neutrophils % Seg Neuts % (Manual) Lymphocytes % (Manual) 10.0 L Monocytes % (Manual) 13.0 H Eosinophils % (Manual) 8.0 H Nucleated RBC % Seg Neutrophils # Seg Neutrophils # Man Lymphocytes # (Manual) 0.9 L Monocytes # (Manual) 1.1 H Eosinophils # (Manual) 0.7 H PT INR APTT Fibrinogen POC ABG pH 7.313 L ABG pH POC ABG pCO2 55.0 H POC ABG pO2 ABG pO2 ABG HCO3 ABG O2 Saturation ABG Base Excess ABG Hemoglobin Oxyhemoglobin Sodium 135 L Potassium Chloride 94.3 L Carbon Dioxide BUN 117 H Creatinine 7.8 H Glucose POC Glucose Uric Acid Calcium 8.2 L Phosphorus Magnesium Iron TIBC AST ALT Total Creatine Kinase CK-MB (CK-2) Troponin T NT-Pro-B Natriuret Pep Total Protein Albumin Triglycerides HDL Cholesterol Folate Urine WBC (Auto) Urine Creatinine Urine Total Protein Vancomycin Trough 05/23/19 05/24/19 05/24/19 05:21 05:00 05:00 WBC RBC 3.18 L Hgb 8.5 L Hct 26.7 L MCV MCH 27 L MCHC RDW 17.9 H Plt Count Lymph % (Auto) [place] % (Auto) Eos % (Auto) Lymph # [place] # Eos # Seg Neutrophils % Seg Neuts % (Manual) Lymphocytes % (Manual) Monocytes % (Manual) Eosinophils % (Manual) Nucleated RBC % Seg Neutrophils # Seg Neutrophils # Man Lymphocytes # (Manual) Monocytes # (Manual) Eosinophils # (Manual) PT INR APTT Fibrinogen POC ABG pH ABG pH POC ABG pCO2 49.7 H POC ABG pO2 73 L ABG pO2 ABG HCO3 ABG O2 Saturation ABG Base Excess ABG Hemoglobin Oxyhemoglobin Sodium Potassium Chloride 95.7 L Carbon Dioxide BUN 97 H Creatinine 6.5 H Glucose POC Glucose Uric Acid Calcium 8.0 L Phosphorus Magnesium Iron TIBC AST ALT Total Creatine Kinase CK-MB (CK-2) Troponin T NT-Pro-B Natriuret Pep Total Protein Albumin Triglycerides HDL Cholesterol Folate Urine WBC (Auto) Urine Creatinine Urine Total Protein Vancomycin Trough 05/24/19 05/25/19 05/25/19 06:17 04:22 15:45 WBC RBC 2.98 L Hgb 8.1 L Hct 24.9 L MCV MCH 27 L MCHC RDW 17.8 H Plt Count Lymph % (Auto) [place] % (Auto) Eos % (Auto) Lymph # [place] # Eos # Seg Neutrophils % Seg Neuts % (Manual) Lymphocytes % (Manual) Monocytes % (Manual) Eosinophils % (Manual) Nucleated RBC % Seg Neutrophils # Seg Neutrophils # Man Lymphocytes # (Manual) Monocytes # (Manual) Eosinophils # (Manual) PT INR APTT Fibrinogen POC ABG pH 7.330 L 7.313 L ABG pH POC ABG pCO2 52.5 H 51.1 H POC ABG pO2 77 L ABG pO2 ABG HCO3 ABG O2 Saturation ABG Base Excess ABG Hemoglobin Oxyhemoglobin Sodium Potassium Chloride Carbon Dioxide BUN Creatinine Glucose POC Glucose Uric Acid Calcium Phosphorus Magnesium Iron TIBC AST ALT Total Creatine Kinase CK-MB (CK-2) Troponin T NT-Pro-B Natriuret Pep Total Protein Albumin Triglycerides HDL Cholesterol Folate Urine WBC (Auto) Urine Creatinine Urine Total Protein Vancomycin Trough 05/25/19 05/26/19 05/26/19 15:45 04:13 05:00 WBC RBC 3.10 L Hgb 8.4 L Hct 26.0 L MCV MCH 27 L MCHC RDW 17.4 H Plt Count Lymph % (Auto) [place] % (Auto) Eos % (Auto) Lymph # [place] # Eos # Seg Neutrophils % Seg Neuts % (Manual) Lymphocytes % (Manual) Monocytes % (Manual) Eosinophils % (Manual) Nucleated RBC % Seg Neutrophils # Seg Neutrophils # Man Lymphocytes # (Manual) Monocytes # (Manual) Eosinophils # (Manual) PT INR APTT Fibrinogen POC ABG pH 7.295 L ABG pH POC ABG pCO2 56.5 H POC ABG pO2 63 L ABG pO2 ABG HCO3 ABG O2 Saturation ABG Base Excess ABG Hemoglobin Oxyhemoglobin Sodium 136 L Potassium Chloride 96.8 L Carbon Dioxide BUN 83 H Creatinine 5.9 H Glucose POC Glucose Uric Acid Calcium 7.6 L Phosphorus Magnesium Iron TIBC AST ALT Total Creatine Kinase CK-MB (CK-2) Troponin T NT-Pro-B Natriuret Pep Total Protein Albumin Triglycerides HDL Cholesterol Folate Urine WBC (Auto) Urine Creatinine Urine Total Protein Vancomycin Trough 05/26/19 05/27/19 05/28/19 05:00 04:48 04:47 WBC RBC Hgb Hct MCV MCH MCHC RDW Plt Count Lymph % (Auto) [place] % (Auto) Eos % (Auto) Lymph # [place] # Eos # Seg Neutrophils % Seg Neuts % (Manual) Lymphocytes % (Manual) Monocytes % (Manual) Eosinophils % (Manual) Nucleated RBC % Seg Neutrophils # Seg Neutrophils # Man Lymphocytes # (Manual) Monocytes # (Manual) Eosinophils # (Manual) PT INR APTT Fibrinogen POC ABG pH 7.323 L ABG pH 7.284 L POC ABG pCO2 56.2 H POC ABG pO2 ABG pO2 71.6 L ABG HCO3 ABG O2 Saturation 92.0 L ABG Base Excess ABG Hemoglobin 7.7 L Oxyhemoglobin 89.9 L Sodium 136 L Potassium Chloride 95.3 L Carbon Dioxide BUN 96 H Creatinine 6.5 H Glucose 108 H POC Glucose Uric Acid Calcium 7.6 L Phosphorus Magnesium Iron TIBC AST ALT Total Creatine Kinase CK-MB (CK-2) Troponin T NT-Pro-B Natriuret Pep Total Protein Albumin Triglycerides HDL Cholesterol Folate Urine WBC (Auto) Urine Creatinine Urine Total Protein Vancomycin Trough 05/28/19 05/29/19 05/29/19 12:30 12:47 23:44 WBC RBC Hgb Hct MCV MCH MCHC RDW Plt Count Lymph % (Auto) [place] % (Auto) Eos % (Auto) Lymph # [place] # Eos # Seg Neutrophils % Seg Neuts % (Manual) Lymphocytes % (Manual) Monocytes % (Manual) Eosinophils % (Manual) Nucleated RBC % Seg Neutrophils # Seg Neutrophils # Man Lymphocytes # (Manual) Monocytes # (Manual) Eosinophils # (Manual) PT INR APTT Fibrinogen POC ABG pH ABG pH POC ABG pCO2 POC ABG pO2 ABG pO2 ABG HCO3 ABG O2 Saturation ABG Base Excess ABG Hemoglobin Oxyhemoglobin Sodium 135 L Potassium Chloride 95.3 L Carbon Dioxide BUN 82 H Creatinine 6.0 H Glucose POC Glucose 136 H 159 H Uric Acid Calcium 7.5 L Phosphorus Magnesium Iron TIBC AST ALT Total Creatine Kinase CK-MB (CK-2) Troponin T NT-Pro-B Natriuret Pep Total Protein Albumin Triglycerides HDL Cholesterol Folate Urine WBC (Auto) Urine Creatinine Urine Total Protein Vancomycin Trough 05/30/19 05/30/19 05/30/19 04:30 05:38 12:00 WBC RBC 3.01 L Hgb 8.2 L Hct 25.3 L MCV MCH 27 L MCHC RDW 17.5 H Plt Count Lymph % (Auto) [place] % (Auto) Eos % (Auto) Lymph # [place] # Eos # Seg Neutrophils % Seg Neuts % (Manual) 80.0 H Lymphocytes % (Manual) 10.0 L Monocytes % (Manual) Eosinophils % (Manual) Nucleated RBC % Seg Neutrophils # Seg Neutrophils # Man 8.0 H Lymphocytes # (Manual) 1.0 L Monocytes # (Manual) Eosinophils # (Manual) PT INR APTT Fibrinogen POC ABG pH ABG pH POC ABG pCO2 POC ABG pO2 73 L ABG pO2 ABG HCO3 ABG O2 Saturation ABG Base Excess ABG Hemoglobin Oxyhemoglobin Sodium Potassium Chloride Carbon Dioxide BUN Creatinine Glucose POC Glucose 166 H Uric Acid Calcium Phosphorus Magnesium Iron TIBC AST ALT Total Creatine Kinase CK-MB (CK-2) Troponin T NT-Pro-B Natriuret Pep Total Protein Albumin Triglycerides HDL Cholesterol Folate Urine WBC (Auto) Urine Creatinine Urine Total Protein Vancomycin Trough 05/30/19 05/31/19 05/31/19 23:45 04:07 13:04 WBC 14.3 H RBC 2.88 L Hgb 7.7 L Hct 23.9 L MCV 83 L MCH 27 L MCHC RDW 17.8 H Plt Count Lymph % (Auto) [place] % (Auto) Eos % (Auto) Lymph # [place] # Eos # Seg Neutrophils % Seg Neuts % (Manual) 83.0 H Lymphocytes % (Manual) 11.0 L Monocytes % (Manual) Eosinophils % (Manual) Nucleated RBC % Seg Neutrophils # Seg Neutrophils # Man 11.9 H Lymphocytes # (Manual) Monocytes # (Manual) 0.9 H Eosinophils # (Manual) PT INR APTT Fibrinogen POC ABG pH ABG pH POC ABG pCO2 47.4 H POC ABG pO2 ABG pO2 ABG HCO3 ABG O2 Saturation ABG Base Excess ABG Hemoglobin Oxyhemoglobin Sodium Potassium Chloride Carbon Dioxide BUN Creatinine Glucose POC Glucose 209 H Uric Acid Calcium Phosphorus Magnesium Iron TIBC AST ALT Total Creatine Kinase CK-MB (CK-2) Troponin T NT-Pro-B Natriuret Pep Total Protein Albumin Triglycerides HDL Cholesterol Folate Urine WBC (Auto) Urine Creatinine Urine Total Protein Vancomycin Trough 05/31/19 05/31/19 06/01/19 13:04 16:42 00:15 WBC RBC Hgb Hct MCV MCH MCHC RDW Plt Count Lymph % (Auto) [place] % (Auto) Eos % (Auto) Lymph # [place] # Eos # Seg Neutrophils % Seg Neuts % (Manual) Lymphocytes % (Manual) Monocytes % (Manual) Eosinophils % (Manual) Nucleated RBC % Seg Neutrophils # Seg Neutrophils # Man Lymphocytes # (Manual) Monocytes # (Manual) Eosinophils # (Manual) PT INR APTT Fibrinogen POC ABG pH ABG pH POC ABG pCO2 POC ABG pO2 ABG pO2 ABG HCO3 ABG O2 Saturation ABG Base Excess ABG Hemoglobin Oxyhemoglobin Sodium 129 L Potassium Chloride 88.6 L Carbon Dioxide 19 L BUN 117 H Creatinine 6.7 H Glucose 205 H POC Glucose 228 H 223 H Uric Acid Calcium 7.4 L Phosphorus 7.40 H Magnesium Iron TIBC AST 58 H ALT 149 H Total Creatine Kinase CK-MB (CK-2) Troponin T NT-Pro-B Natriuret Pep Total Protein 6.0 L Albumin 2.5 L Triglycerides HDL Cholesterol Folate Urine WBC (Auto) Urine Creatinine Urine Total Protein Vancomycin Trough 06/01/19 06/01/19 06/01/19 04:33 05:27 12:31 WBC RBC Hgb Hct MCV MCH MCHC RDW Plt Count Lymph % (Auto) [place] % (Auto) Eos % (Auto) Lymph # [place] # Eos # Seg Neutrophils % Seg Neuts % (Manual) Lymphocytes % (Manual) Monocytes % (Manual) Eosinophils % (Manual) Nucleated RBC % Seg Neutrophils # Seg Neutrophils # Man Lymphocytes # (Manual) Monocytes # (Manual) Eosinophils # (Manual) PT INR APTT Fibrinogen POC ABG pH ABG pH POC ABG pCO2 POC ABG pO2 ABG pO2 56.9 L ABG HCO3 ABG O2 Saturation 85.9 L ABG Base Excess ABG Hemoglobin 8.1 L Oxyhemoglobin 83.6 L Sodium Potassium Chloride Carbon Dioxide BUN Creatinine Glucose POC Glucose 183 H 217 H Uric Acid Calcium Phosphorus Magnesium Iron TIBC AST ALT Total Creatine Kinase CK-MB (CK-2) Troponin T NT-Pro-B Natriuret Pep Total Protein Albumin Triglycerides HDL Cholesterol Folate Urine WBC (Auto) Urine Creatinine Urine Total Protein Vancomycin Trough 06/01/19 06/02/19 06/02/19 18:20 00:00 05:33 WBC RBC Hgb Hct MCV MCH MCHC RDW Plt Count Lymph % (Auto) [place] % (Auto) Eos % (Auto) Lymph # [place] # Eos # Seg Neutrophils % Seg Neuts % (Manual) Lymphocytes % (Manual) Monocytes % (Manual) Eosinophils % (Manual) Nucleated RBC % Seg Neutrophils # Seg Neutrophils # Man Lymphocytes # (Manual) Monocytes # (Manual) Eosinophils # (Manual) PT INR APTT Fibrinogen POC ABG pH ABG pH POC ABG pCO2 POC ABG pO2 ABG pO2 ABG HCO3 ABG O2 Saturation ABG Base Excess ABG Hemoglobin Oxyhemoglobin Sodium Potassium Chloride Carbon Dioxide BUN Creatinine Glucose POC Glucose 265 H 279 H 259 H Uric Acid Calcium Phosphorus Magnesium Iron TIBC AST ALT Total Creatine Kinase CK-MB (CK-2) Troponin T NT-Pro-B Natriuret Pep Total Protein Albumin Triglycerides HDL Cholesterol Folate Urine WBC (Auto) Urine Creatinine Urine Total Protein Vancomycin Trough 06/02/19 06/02/19 06/02/19 11:06 11:06 11:42 WBC 13.1 H RBC 2.92 L Hgb 7.9 L Hct 24.4 L MCV MCH 27 L MCHC RDW 17.4 H Plt Count Lymph % (Auto) [place] % (Auto) Eos % (Auto) Lymph # [place] # Eos # Seg Neutrophils % Seg Neuts % (Manual) 78.0 H Lymphocytes % (Manual) 12.0 L Monocytes % (Manual) 10.0 H Eosinophils % (Manual) Nucleated RBC % Seg Neutrophils # Seg Neutrophils # Man 10.2 H Lymphocytes # (Manual) Monocytes # (Manual) 1.3 H Eosinophils # (Manual) PT INR APTT Fibrinogen POC ABG pH ABG pH POC ABG pCO2 POC ABG pO2 ABG pO2 ABG HCO3 ABG O2 Saturation ABG Base Excess ABG Hemoglobin Oxyhemoglobin Sodium 135 L Potassium Chloride 94.7 L Carbon Dioxide 21 L BUN 107 H Creatinine 4.5 H Glucose 286 H POC Glucose 263 H Uric Acid Calcium 7.9 L Phosphorus 6.30 H Magnesium Iron TIBC AST ALT 104 H Total Creatine Kinase CK-MB (CK-2) Troponin T NT-Pro-B Natriuret Pep Total Protein 6.0 L Albumin 2.7 L Triglycerides HDL Cholesterol Folate Urine WBC (Auto) Urine Creatinine Urine Total Protein Vancomycin Trough 06/02/19 06/02/19 06/03/19 18:17 23:55 05:30 WBC RBC Hgb Hct MCV MCH MCHC RDW Plt Count Lymph % (Auto) [place] % (Auto) Eos % (Auto) Lymph # [place] # Eos # Seg Neutrophils % Seg Neuts % (Manual) Lymphocytes % (Manual) Monocytes % (Manual) Eosinophils % (Manual) Nucleated RBC % Seg Neutrophils # Seg Neutrophils # Man Lymphocytes # (Manual) Monocytes # (Manual) Eosinophils # (Manual) PT INR APTT Fibrinogen POC ABG pH ABG pH POC ABG pCO2 POC ABG pO2 ABG pO2 ABG HCO3 ABG O2 Saturation ABG Base Excess ABG Hemoglobin Oxyhemoglobin Sodium Potassium Chloride 95.1 L Carbon Dioxide 21 L BUN 119 H Creatinine 4.1 H Glucose 330 H POC Glucose 276 H 244 H Uric Acid Calcium 8.1 L Phosphorus Magnesium Iron TIBC AST ALT 98 H Total Creatine Kinase CK-MB (CK-2) Troponin T NT-Pro-B Natriuret Pep Total Protein 5.8 L Albumin 2.8 L Triglycerides HDL Cholesterol Folate Urine WBC (Auto) Urine Creatinine Urine Total Protein Vancomycin Trough 06/03/19 06/03/19 06/03/19 05:30 06:04 09:42 WBC 12.8 H RBC 3.01 L Hgb 8.2 L Hct 25.4 L MCV MCH 27 L MCHC RDW 17.5 H Plt Count Lymph % (Auto) [place] % (Auto) Eos % (Auto) Lymph # [place] # Eos # Seg Neutrophils % Seg Neuts % (Manual) 78.0 H Lymphocytes % (Manual) 10.0 L Monocytes % (Manual) 12.0 H Eosinophils % (Manual) Nucleated RBC % Seg Neutrophils # Seg Neutrophils # Man 10.0 H Lymphocytes # (Manual) Monocytes # (Manual) 1.5 H Eosinophils # (Manual) PT INR APTT Fibrinogen POC ABG pH ABG pH POC ABG pCO2 POC ABG pO2 ABG pO2 ABG HCO3 ABG O2 Saturation ABG Base Excess ABG Hemoglobin Oxyhemoglobin Sodium Potassium Chloride Carbon Dioxide BUN 106 H Creatinine Glucose POC Glucose 254 H Uric Acid Calcium Phosphorus Magnesium Iron TIBC AST ALT Total Creatine Kinase CK-MB (CK-2) Troponin T NT-Pro-B Natriuret Pep Total Protein Albumin Triglycerides HDL Cholesterol Folate Urine WBC (Auto) Urine Creatinine Urine Total Protein Vancomycin Trough 06/03/19 06/03/19 06/03/19 12:52 17:25 23:37 WBC RBC Hgb Hct MCV MCH MCHC RDW Plt Count Lymph % (Auto) [place] % (Auto) Eos % (Auto) Lymph # [place] # Eos # Seg Neutrophils % Seg Neuts % (Manual) Lymphocytes % (Manual) Monocytes % (Manual) Eosinophils % (Manual) Nucleated RBC % Seg Neutrophils # Seg Neutrophils # Man Lymphocytes # (Manual) Monocytes # (Manual) Eosinophils # (Manual) PT INR APTT Fibrinogen POC ABG pH ABG pH POC ABG pCO2 POC ABG pO2 ABG pO2 ABG HCO3 ABG O2 Saturation ABG Base Excess ABG Hemoglobin Oxyhemoglobin Sodium Potassium Chloride Carbon Dioxide BUN Creatinine Glucose POC Glucose 274 H 285 H 310 H Uric Acid Calcium Phosphorus Magnesium Iron TIBC AST ALT Total Creatine Kinase CK-MB (CK-2) Troponin T NT-Pro-B Natriuret Pep Total Protein Albumin Triglycerides HDL Cholesterol Folate Urine WBC (Auto) Urine Creatinine Urine Total Protein Vancomycin Trough 06/04/19 06/04/19 06/04/19 04:57 05:03 11:50 WBC RBC Hgb Hct MCV MCH MCHC RDW Plt Count Lymph % (Auto) [place] % (Auto) Eos % (Auto) Lymph # [place] # Eos # Seg Neutrophils % Seg Neuts % (Manual) Lymphocytes % (Manual) Monocytes % (Manual) Eosinophils % (Manual) Nucleated RBC % Seg Neutrophils # Seg Neutrophils # Man Lymphocytes # (Manual) Monocytes # (Manual) Eosinophils # (Manual) PT INR APTT Fibrinogen POC ABG pH 7.488 H ABG pH POC ABG pCO2 POC ABG pO2 ABG pO2 ABG HCO3 ABG O2 Saturation ABG Base Excess ABG Hemoglobin Oxyhemoglobin Sodium Potassium Chloride Carbon Dioxide BUN Creatinine Glucose POC Glucose 275 H 279 H Uric Acid Calcium Phosphorus Magnesium Iron TIBC AST ALT Total Creatine Kinase CK-MB (CK-2) Troponin T NT-Pro-B Natriuret Pep Total Protein Albumin Triglycerides HDL Cholesterol Folate Urine WBC (Auto) Urine Creatinine Urine Total Protein Vancomycin Trough 06/04/19 06/04/19 06/04/19 18:32 22:03 23:55 WBC RBC Hgb Hct MCV MCH MCHC RDW Plt Count Lymph % (Auto) [place] % (Auto) Eos % (Auto) Lymph # [place] # Eos # Seg Neutrophils % Seg Neuts % (Manual) Lymphocytes % (Manual) Monocytes % (Manual) Eosinophils % (Manual) Nucleated RBC % Seg Neutrophils # Seg Neutrophils # Man Lymphocytes # (Manual) Monocytes # (Manual) Eosinophils # (Manual) PT INR APTT Fibrinogen POC ABG pH ABG pH POC ABG pCO2 POC ABG pO2 ABG pO2 ABG HCO3 ABG O2 Saturation ABG Base Excess ABG Hemoglobin Oxyhemoglobin Sodium Potassium Chloride Carbon Dioxide BUN Creatinine Glucose POC Glucose 267 H 307 H 292 H Uric Acid Calcium Phosphorus Magnesium Iron TIBC AST ALT Total Creatine Kinase CK-MB (CK-2) Troponin T NT-Pro-B Natriuret Pep Total Protein Albumin Triglycerides HDL Cholesterol Folate Urine WBC (Auto) Urine Creatinine Urine Total Protein Vancomycin Trough 06/05/19 06/05/19 06/05/19 03:52 06:41 12:29 WBC RBC Hgb Hct MCV MCH MCHC RDW Plt Count Lymph % (Auto) [place] % (Auto) Eos % (Auto) Lymph # [place] # Eos # Seg Neutrophils % Seg Neuts % (Manual) Lymphocytes % (Manual) Monocytes % (Manual) Eosinophils % (Manual) Nucleated RBC % Seg Neutrophils # Seg Neutrophils # Man Lymphocytes # (Manual) Monocytes # (Manual) Eosinophils # (Manual) PT INR APTT Fibrinogen POC ABG pH 7.462 H ABG pH POC ABG pCO2 POC ABG pO2 ABG pO2 ABG HCO3 ABG O2 Saturation ABG Base Excess ABG Hemoglobin Oxyhemoglobin Sodium Potassium Chloride Carbon Dioxide BUN Creatinine Glucose POC Glucose 369 H 265 H Uric Acid Calcium Phosphorus Magnesium Iron TIBC AST ALT Total Creatine Kinase CK-MB (CK-2) Troponin T NT-Pro-B Natriuret Pep Total Protein Albumin Triglycerides HDL Cholesterol Folate Urine WBC (Auto) Urine Creatinine Urine Total Protein Vancomycin Trough 06/05/19 06/05/19 06/05/19 18:20 21:42 23:21 WBC RBC Hgb Hct MCV MCH MCHC RDW Plt Count Lymph % (Auto) [place] % (Auto) Eos % (Auto) Lymph # [place] # Eos # Seg Neutrophils % Seg Neuts % (Manual) Lymphocytes % (Manual) Monocytes % (Manual) Eosinophils % (Manual) Nucleated RBC % Seg Neutrophils # Seg Neutrophils # Man Lymphocytes # (Manual) Monocytes # (Manual) Eosinophils # (Manual) PT INR APTT Fibrinogen POC ABG pH ABG pH POC ABG pCO2 POC ABG pO2 ABG pO2 ABG HCO3 ABG O2 Saturation ABG Base Excess ABG Hemoglobin Oxyhemoglobin Sodium Potassium Chloride Carbon Dioxide BUN Creatinine Glucose POC Glucose 249 H 246 H 274 H Uric Acid Calcium Phosphorus Magnesium Iron TIBC AST ALT Total Creatine Kinase CK-MB (CK-2) Troponin T NT-Pro-B Natriuret Pep Total Protein Albumin Triglycerides HDL Cholesterol Folate Urine WBC (Auto) Urine Creatinine Urine Total Protein Vancomycin Trough 06/06/19 06/06/19 06/06/19 04:00 05:49 11:34 WBC 18.1 H RBC 3.53 L Hgb 9.5 L Hct 30.3 L MCV MCH 27 L MCHC 31 L RDW 19.5 H Plt Count Lymph % (Auto) [place] % (Auto) Eos % (Auto) Lymph # [place] # Eos # Seg Neutrophils % Seg Neuts % (Manual) 87.0 H Lymphocytes % (Manual) 3.0 L Monocytes % (Manual) 8.0 H Eosinophils % (Manual) Nucleated RBC % Seg Neutrophils # Seg Neutrophils # Man 15.7 H Lymphocytes # (Manual) 0.5 L Monocytes # (Manual) 1.4 H Eosinophils # (Manual) PT INR APTT Fibrinogen POC ABG pH ABG pH 7.472 H POC ABG pCO2 POC ABG pO2 ABG pO2 76.4 L ABG HCO3 28.1 H ABG O2 Saturation ABG Base Excess 4.3 H ABG Hemoglobin 12.5 L Oxyhemoglobin 93.8 L Sodium Potassium Chloride Carbon Dioxide BUN Creatinine Glucose POC Glucose 340 H Uric Acid Calcium Phosphorus Magnesium Iron TIBC AST ALT Total Creatine Kinase CK-MB (CK-2) Troponin T NT-Pro-B Natriuret Pep Total Protein Albumin Triglycerides HDL Cholesterol Folate Urine WBC (Auto) Urine Creatinine Urine Total Protein Vancomycin Trough 06/06/19 06/06/19 06/06/19 11:34 12:11 18:10 WBC RBC Hgb Hct MCV MCH MCHC RDW Plt Count Lymph % (Auto) [place] % (Auto) Eos % (Auto) Lymph # [place] # Eos # Seg Neutrophils % Seg Neuts % (Manual) Lymphocytes % (Manual) Monocytes % (Manual) Eosinophils % (Manual) Nucleated RBC % Seg Neutrophils # Seg Neutrophils # Man Lymphocytes # (Manual) Monocytes # (Manual) Eosinophils # (Manual) PT INR APTT Fibrinogen POC ABG pH ABG pH POC ABG pCO2 POC ABG pO2 ABG pO2 ABG HCO3 ABG O2 Saturation ABG Base Excess ABG Hemoglobin Oxyhemoglobin Sodium Potassium Chloride Carbon Dioxide BUN 70 H Creatinine Glucose 310 H POC Glucose 283 H 301 H Uric Acid Calcium 8.3 L Phosphorus 4.60 H Magnesium Iron TIBC AST ALT 75 H Total Creatine Kinase CK-MB (CK-2) Troponin T NT-Pro-B Natriuret Pep Total Protein 5.6 L Albumin 2.9 L Triglycerides HDL Cholesterol Folate Urine WBC (Auto) Urine Creatinine Urine Total Protein Vancomycin Trough 06/06/19 06/06/19 06/07/19 22:21 23:16 04:30 WBC RBC Hgb Hct MCV MCH MCHC RDW Plt Count Lymph % (Auto) [place] % (Auto) Eos % (Auto) Lymph # [place] # Eos # Seg Neutrophils % Seg Neuts % (Manual) Lymphocytes % (Manual) Monocytes % (Manual) Eosinophils % (Manual) Nucleated RBC % Seg Neutrophils # Seg Neutrophils # Man Lymphocytes # (Manual) Monocytes # (Manual) Eosinophils # (Manual) PT INR APTT Fibrinogen POC ABG pH ABG pH 7.480 H POC ABG pCO2 POC ABG pO2 ABG pO2 77.0 L ABG HCO3 27.2 H ABG O2 Saturation ABG Base Excess 3.5 H ABG Hemoglobin 7.1 L Oxyhemoglobin 94.2 L Sodium Potassium Chloride Carbon Dioxide BUN Creatinine Glucose POC Glucose 289 H 343 H Uric Acid Calcium Phosphorus Magnesium Iron TIBC AST ALT Total Creatine Kinase CK-MB (CK-2) Troponin T NT-Pro-B Natriuret Pep Total Protein Albumin Triglycerides HDL Cholesterol Folate Urine WBC (Auto) Urine Creatinine Urine Total Protein Vancomycin Trough 06/07/19 06/07/19 06/07/19 05:15 12:52 18:41 WBC RBC Hgb Hct MCV MCH MCHC RDW Plt Count Lymph % (Auto) [place] % (Auto) Eos % (Auto) Lymph # [place] # Eos # Seg Neutrophils % Seg Neuts % (Manual) Lymphocytes % (Manual) Monocytes % (Manual) Eosinophils % (Manual) Nucleated RBC % Seg Neutrophils # Seg Neutrophils # Man Lymphocytes # (Manual) Monocytes # (Manual) Eosinophils # (Manual) PT INR APTT Fibrinogen POC ABG pH ABG pH POC ABG pCO2 POC ABG pO2 ABG pO2 ABG HCO3 ABG O2 Saturation ABG Base Excess ABG Hemoglobin Oxyhemoglobin Sodium Potassium Chloride Carbon Dioxide BUN Creatinine Glucose POC Glucose 307 H 226 H 187 H Uric Acid Calcium Phosphorus Magnesium Iron TIBC AST ALT Total Creatine Kinase CK-MB (CK-2) Troponin T NT-Pro-B Natriuret Pep Total Protein Albumin Triglycerides HDL Cholesterol Folate Urine WBC (Auto) Urine Creatinine Urine Total Protein Vancomycin Trough 06/07/19 06/07/19 06/08/19 22:54 23:46 04:20 WBC 16.0 H RBC Hgb 10.0 L Hct 32.1 L MCV MCH 27 L MCHC 31 L RDW 19.4 H Plt Count Lymph % (Auto) [place] % (Auto) Eos % (Auto) Lymph # [place] # Eos # Seg Neutrophils % Seg Neuts % (Manual) 87.0 H Lymphocytes % (Manual) 7.0 L Monocytes % (Manual) Eosinophils % (Manual) Nucleated RBC % Seg Neutrophils # Seg Neutrophils # Man 13.9 H Lymphocytes # (Manual) 1.1 L Monocytes # (Manual) 1.0 H Eosinophils # (Manual) PT INR APTT Fibrinogen POC ABG pH ABG pH POC ABG pCO2 POC ABG pO2 ABG pO2 ABG HCO3 ABG O2 Saturation ABG Base Excess ABG Hemoglobin Oxyhemoglobin Sodium Potassium Chloride Carbon Dioxide BUN Creatinine Glucose POC Glucose 199 H 172 H Uric Acid Calcium Phosphorus Magnesium Iron TIBC AST ALT Total Creatine Kinase CK-MB (CK-2) Troponin T NT-Pro-B Natriuret Pep Total Protein Albumin Triglycerides HDL Cholesterol Folate Urine WBC (Auto) Urine Creatinine Urine Total Protein Vancomycin Trough 06/08/19 06/08/19 06/08/19 04:20 05:15 11:31 WBC RBC Hgb Hct MCV MCH MCHC RDW Plt Count Lymph % (Auto) [place] % (Auto) Eos % (Auto) Lymph # [place] # Eos # Seg Neutrophils % Seg Neuts % (Manual) Lymphocytes % (Manual) Monocytes % (Manual) Eosinophils % (Manual) Nucleated RBC % Seg Neutrophils # Seg Neutrophils # Man Lymphocytes # (Manual) Monocytes # (Manual) Eosinophils # (Manual) PT INR APTT Fibrinogen POC ABG pH ABG pH POC ABG pCO2 POC ABG pO2 ABG pO2 ABG HCO3 ABG O2 Saturation ABG Base Excess ABG Hemoglobin Oxyhemoglobin Sodium 146 H D Potassium Chloride Carbon Dioxide BUN 77 H Creatinine Glucose 205 H POC Glucose 209 H 181 H Uric Acid Calcium Phosphorus Magnesium Iron TIBC AST ALT 66 H Total Creatine Kinase CK-MB (CK-2) Troponin T NT-Pro-B Natriuret Pep Total Protein 5.5 L Albumin 2.9 L Triglycerides HDL Cholesterol Folate Urine WBC (Auto) Urine Creatinine Urine Total Protein Vancomycin Trough 06/08/19 06/08/19 06/09/19 17:28 23:24 05:20 WBC RBC Hgb Hct MCV MCH MCHC RDW Plt Count Lymph % (Auto) [place] % (Auto) Eos % (Auto) Lymph # [place] # Eos # Seg Neutrophils % Seg Neuts % (Manual) Lymphocytes % (Manual) Monocytes % (Manual) Eosinophils % (Manual) Nucleated RBC % Seg Neutrophils # Seg Neutrophils # Man Lymphocytes # (Manual) Monocytes # (Manual) Eosinophils # (Manual) PT INR APTT Fibrinogen POC ABG pH ABG pH POC ABG pCO2 POC ABG pO2 ABG pO2 ABG HCO3 ABG O2 Saturation ABG Base Excess ABG Hemoglobin Oxyhemoglobin Sodium Potassium Chloride Carbon Dioxide BUN Creatinine Glucose POC Glucose 215 H 200 H 173 H Uric Acid Calcium Phosphorus Magnesium Iron TIBC AST ALT Total Creatine Kinase CK-MB (CK-2) Troponin T NT-Pro-B Natriuret Pep Total Protein Albumin Triglycerides HDL Cholesterol Folate Urine WBC (Auto) Urine Creatinine Urine Total Protein Vancomycin Trough 01/06/09/19 06/09/19 12:07 18:32 23:51 WBC RBC Hgb Hct MCV MCH MCHC RDW Plt Count Lymph % (Auto) [place] % (Auto) Eos % (Auto) Lymph # [place] # Eos # Seg Neutrophils % Seg Neuts % (Manual) Lymphocytes % (Manual) Monocytes % (Manual) Eosinophils % (Manual) Nucleated RBC % Seg Neutrophils # Seg Neutrophils # Man Lymphocytes # (Manual) Monocytes # (Manual) Eosinophils # (Manual) PT INR APTT Fibrinogen POC ABG pH ABG pH POC ABG pCO2 POC ABG pO2 ABG pO2 ABG HCO3 ABG O2 Saturation ABG Base Excess ABG Hemoglobin Oxyhemoglobin Sodium Potassium Chloride Carbon Dioxide BUN Creatinine Glucose POC Glucose 117 H 169 H 147 H Uric Acid Calcium Phosphorus Magnesium Iron TIBC AST ALT Total Creatine Kinase CK-MB (CK-2) Troponin T NT-Pro-B Natriuret Pep Total Protein Albumin Triglycerides HDL Cholesterol Folate Urine WBC (Auto) Urine Creatinine Urine Total Protein Vancomycin Trough 06/10/19 06/10/19 06/10/19 05:45 05:45 06:01 WBC 14.6 H RBC Hgb 9.9 L Hct 32.2 L MCV MCH 27 L MCHC 31 L RDW 19.6 H Plt Count Lymph % (Auto) 10.5 L [place] % (Auto) 9.4 H Eos % (Auto) Lymph # [place] # 1.4 H Eos # Seg Neutrophils % 79.9 H Seg Neuts % (Manual) Lymphocytes % (Manual) Monocytes % (Manual) Eosinophils % (Manual) Nucleated RBC % Seg Neutrophils # 11.7 H Seg Neutrophils # Man Lymphocytes # (Manual) Monocytes # (Manual) Eosinophils # (Manual) PT INR APTT Fibrinogen POC ABG pH ABG pH POC ABG pCO2 POC ABG pO2 ABG pO2 ABG HCO3 ABG O2 Saturation ABG Base Excess ABG Hemoglobin Oxyhemoglobin Sodium 150 H Potassium Chloride 108.3 H Carbon Dioxide BUN 49 H Creatinine Glucose 172 H POC Glucose 165 H Uric Acid Calcium Phosphorus Magnesium 1.40 L Iron TIBC AST ALT Total Creatine Kinase CK-MB (CK-2) Troponin T NT-Pro-B Natriuret Pep Total Protein Albumin Triglycerides HDL Cholesterol Folate Urine WBC (Auto) Urine Creatinine Urine Total Protein Vancomycin Trough 06/10/19 06/10/19 06/11/19 12:11 18:30 00:02 WBC RBC Hgb Hct MCV MCH MCHC RDW Plt Count Lymph % (Auto) [place] % (Auto) Eos % (Auto) Lymph # [place] # Eos # Seg Neutrophils % Seg Neuts % (Manual) Lymphocytes % (Manual) Monocytes % (Manual) Eosinophils % (Manual) Nucleated RBC % Seg Neutrophils # Seg Neutrophils # Man Lymphocytes # (Manual) Monocytes # (Manual) Eosinophils # (Manual) PT INR APTT Fibrinogen POC ABG pH ABG pH POC ABG pCO2 POC ABG pO2 ABG pO2 ABG HCO3 ABG O2 Saturation ABG Base Excess ABG Hemoglobin Oxyhemoglobin Sodium Potassium Chloride Carbon Dioxide BUN Creatinine Glucose POC Glucose 150 H 154 H 130 H Uric Acid Calcium Phosphorus Magnesium Iron TIBC AST ALT Total Creatine Kinase CK-MB (CK-2) Troponin T NT-Pro-B Natriuret Pep Total Protein Albumin Triglycerides HDL Cholesterol Folate Urine WBC (Auto) Urine Creatinine Urine Total Protein Vancomycin Trough 06/11/19 06/11/19 06/11/19 05:33 08:34 12:33 WBC RBC Hgb Hct MCV MCH MCHC RDW Plt Count Lymph % (Auto) [place] % (Auto) Eos % (Auto) Lymph # [place] # Eos # Seg Neutrophils % Seg Neuts % (Manual) Lymphocytes % (Manual) Monocytes % (Manual) Eosinophils % (Manual) Nucleated RBC % Seg Neutrophils # Seg Neutrophils # Man Lymphocytes # (Manual) Monocytes # (Manual) Eosinophils # (Manual) PT INR APTT Fibrinogen POC ABG pH ABG pH POC ABG pCO2 POC ABG pO2 ABG pO2 ABG HCO3 ABG O2 Saturation ABG Base Excess ABG Hemoglobin Oxyhemoglobin Sodium 154 H Potassium Chloride 111.6 H Carbon Dioxide BUN 41 H Creatinine Glucose 147 H POC Glucose 183 H 185 H Uric Acid Calcium Phosphorus Magnesium Iron TIBC AST ALT Total Creatine Kinase CK-MB (CK-2) Troponin T NT-Pro-B Natriuret Pep Total Protein Albumin Triglycerides HDL Cholesterol Folate Urine WBC (Auto) Urine Creatinine Urine Total Protein Vancomycin Trough 06/11/19 06/11/19 06/12/19 18:22 23:46 03:21 WBC 11.9 H RBC 3.61 L Hgb 9.9 L Hct 31.7 L MCV MCH 27 L MCHC 31 L RDW 19.3 H Plt Count Lymph % (Auto) 10.6 L [place] % (Auto) 8.6 H Eos % (Auto) Lymph # [place] # 1.0 H Eos # Seg Neutrophils % 80.6 H Seg Neuts % (Manual) Lymphocytes % (Manual) Monocytes % (Manual) Eosinophils % (Manual) Nucleated RBC % Seg Neutrophils # 9.6 H Seg Neutrophils # Man Lymphocytes # (Manual) Monocytes # (Manual) Eosinophils # (Manual) PT INR APTT Fibrinogen POC ABG pH ABG pH POC ABG pCO2 POC ABG pO2 ABG pO2 ABG HCO3 ABG O2 Saturation ABG Base Excess ABG Hemoglobin Oxyhemoglobin Sodium Potassium Chloride Carbon Dioxide BUN Creatinine Glucose POC Glucose 158 H 182 H Uric Acid Calcium Phosphorus Magnesium Iron TIBC AST ALT Total Creatine Kinase CK-MB (CK-2) Troponin T NT-Pro-B Natriuret Pep Total Protein Albumin Triglycerides HDL Cholesterol Folate Urine WBC (Auto) Urine Creatinine Urine Total Protein Vancomycin Trough 06/12/19 06/12/19 06/12/19 03:21 06:04 11:28 WBC RBC Hgb Hct MCV MCH MCHC RDW Plt Count Lymph % (Auto) [place] % (Auto) Eos % (Auto) Lymph # [place] # Eos # Seg Neutrophils % Seg Neuts % (Manual) Lymphocytes % (Manual) Monocytes % (Manual) Eosinophils % (Manual) Nucleated RBC % Seg Neutrophils # Seg Neutrophils # Man Lymphocytes # (Manual) Monocytes # (Manual) Eosinophils # (Manual) PT INR APTT Fibrinogen POC ABG pH ABG pH POC ABG pCO2 POC ABG pO2 ABG pO2 ABG HCO3 ABG O2 Saturation ABG Base Excess ABG Hemoglobin Oxyhemoglobin Sodium 148 H Potassium Chloride 107.3 H Carbon Dioxide BUN 34 H Creatinine 0.7 L Glucose 194 H POC Glucose 133 H 167 H Uric Acid Calcium Phosphorus Magnesium 1.40 L Iron TIBC AST ALT Total Creatine Kinase CK-MB (CK-2) Troponin T NT-Pro-B Natriuret Pep Total Protein Albumin Triglycerides HDL Cholesterol Folate Urine WBC (Auto) Urine Creatinine Urine Total Protein Vancomycin Trough 06/12/19 06/12/19 06/13/19 18:47 21:27 00:04 WBC RBC Hgb Hct MCV MCH MCHC RDW Plt Count Lymph % (Auto) [place] % (Auto) Eos % (Auto) Lymph # [place] # Eos # Seg Neutrophils % Seg Neuts % (Manual) Lymphocytes % (Manual) Monocytes % (Manual) Eosinophils % (Manual) Nucleated RBC % Seg Neutrophils # Seg Neutrophils # Man Lymphocytes # (Manual) Monocytes # (Manual) Eosinophils # (Manual) PT INR APTT Fibrinogen POC ABG pH ABG pH POC ABG pCO2 POC ABG pO2 ABG pO2 ABG HCO3 ABG O2 Saturation ABG Base Excess ABG Hemoglobin Oxyhemoglobin Sodium Potassium Chloride Carbon Dioxide BUN Creatinine Glucose POC Glucose 210 H 263 H 248 H Uric Acid Calcium Phosphorus Magnesium Iron TIBC AST ALT Total Creatine Kinase CK-MB (CK-2) Troponin T NT-Pro-B Natriuret Pep Total Protein Albumin Triglycerides HDL Cholesterol Folate Urine WBC (Auto) Urine Creatinine Urine Total Protein Vancomycin Trough 06/13/19 06/13/19 06/13/19 04:32 05:46 13:30 WBC RBC Hgb Hct MCV MCH MCHC RDW Plt Count Lymph % (Auto) [place] % (Auto) Eos % (Auto) Lymph # [place] # Eos # Seg Neutrophils % Seg Neuts % (Manual) Lymphocytes % (Manual) Monocytes % (Manual) Eosinophils % (Manual) Nucleated RBC % Seg Neutrophils # Seg Neutrophils # Man Lymphocytes # (Manual) Monocytes # (Manual) Eosinophils # (Manual) PT INR APTT Fibrinogen POC ABG pH ABG pH POC ABG pCO2 POC ABG pO2 ABG pO2 ABG HCO3 ABG O2 Saturation ABG Base Excess ABG Hemoglobin Oxyhemoglobin Sodium Potassium Chloride Carbon Dioxide BUN 27 H Creatinine 0.7 L Glucose 253 H POC Glucose 201 H 241 H Uric Acid Calcium Phosphorus Magnesium Iron TIBC AST ALT Total Creatine Kinase CK-MB (CK-2) Troponin T NT-Pro-B Natriuret Pep Total Protein Albumin Triglycerides HDL Cholesterol Folate Urine WBC (Auto) Urine Creatinine Urine Total Protein Vancomycin Trough 06/13/19 06/13/19 06/14/19 17:33 23:49 04:50 WBC RBC Hgb Hct MCV MCH MCHC RDW Plt Count Lymph % (Auto) [place] % (Auto) Eos % (Auto) Lymph # [place] # Eos # Seg Neutrophils % Seg Neuts % (Manual) Lymphocytes % (Manual) Monocytes % (Manual) Eosinophils % (Manual) Nucleated RBC % Seg Neutrophils # Seg Neutrophils # Man Lymphocytes # (Manual) Monocytes # (Manual) Eosinophils # (Manual) PT INR APTT Fibrinogen POC ABG pH ABG pH POC ABG pCO2 POC ABG pO2 ABG pO2 ABG HCO3 ABG O2 Saturation ABG Base Excess ABG Hemoglobin Oxyhemoglobin Sodium Potassium Chloride Carbon Dioxide BUN 37 H Creatinine Glucose 256 H POC Glucose 264 H 236 H Uric Acid Calcium Phosphorus Magnesium Iron TIBC AST ALT Total Creatine Kinase CK-MB (CK-2) Troponin T NT-Pro-B Natriuret Pep Total Protein Albumin Triglycerides HDL Cholesterol Folate Urine WBC (Auto) Urine Creatinine Urine Total Protein Vancomycin Trough 06/14/19 06/14/19 06/14/19 05:26 12:31 18:32 WBC RBC Hgb Hct MCV MCH MCHC RDW Plt Count Lymph % (Auto) [place] % (Auto) Eos % (Auto) Lymph # [place] # Eos # Seg Neutrophils % Seg Neuts % (Manual) Lymphocytes % (Manual) Monocytes % (Manual) Eosinophils % (Manual) Nucleated RBC % Seg Neutrophils # Seg Neutrophils # Man Lymphocytes # (Manual) Monocytes # (Manual) Eosinophils # (Manual) PT INR APTT Fibrinogen POC ABG pH ABG pH POC ABG pCO2 POC ABG pO2 ABG pO2 ABG HCO3 ABG O2 Saturation ABG Base Excess ABG Hemoglobin Oxyhemoglobin Sodium Potassium Chloride Carbon Dioxide BUN Creatinine Glucose POC Glucose 239 H 116 H 247 H Uric Acid Calcium Phosphorus Magnesium Iron TIBC AST ALT Total Creatine Kinase CK-MB (CK-2) Troponin T NT-Pro-B Natriuret Pep Total Protein Albumin Triglycerides HDL Cholesterol Folate Urine WBC (Auto) Urine Creatinine Urine Total Protein Vancomycin Trough 06/14/19 06/15/19 06/15/19 23:57 04:05 05:55 WBC RBC Hgb Hct MCV MCH MCHC RDW Plt Count Lymph % (Auto) [place] % (Auto) Eos % (Auto) Lymph # [place] # Eos # Seg Neutrophils % Seg Neuts % (Manual) Lymphocytes % (Manual) Monocytes % (Manual) Eosinophils % (Manual) Nucleated RBC % Seg Neutrophils # Seg Neutrophils # Man Lymphocytes # (Manual) Monocytes # (Manual) Eosinophils # (Manual) PT INR APTT Fibrinogen POC ABG pH ABG pH POC ABG pCO2 POC ABG pO2 ABG pO2 ABG HCO3 ABG O2 Saturation ABG Base Excess ABG Hemoglobin Oxyhemoglobin Sodium Potassium Chloride Carbon Dioxide BUN 46 H Creatinine 0.7 L Glucose 265 H POC Glucose 206 H 265 H Uric Acid Calcium Phosphorus Magnesium Iron TIBC AST ALT Total Creatine Kinase CK-MB (CK-2) Troponin T NT-Pro-B Natriuret Pep Total Protein Albumin Triglycerides HDL Cholesterol Folate Urine WBC (Auto) Urine Creatinine Urine Total Protein Vancomycin Trough 06/15/19 06/15/19 06/15/19 12:08 18:45 23:41 WBC RBC Hgb Hct MCV MCH MCHC RDW Plt Count Lymph % (Auto) [place] % (Auto) Eos % (Auto) Lymph # [place] # Eos # Seg Neutrophils % Seg Neuts % (Manual) Lymphocytes % (Manual) Monocytes % (Manual) Eosinophils % (Manual) Nucleated RBC % Seg Neutrophils # Seg Neutrophils # Man Lymphocytes # (Manual) Monocytes # (Manual) Eosinophils # (Manual) PT INR APTT Fibrinogen POC ABG pH ABG pH POC ABG pCO2 POC ABG pO2 ABG pO2 ABG HCO3 ABG O2 Saturation ABG Base Excess ABG Hemoglobin Oxyhemoglobin Sodium Potassium Chloride Carbon Dioxide BUN Creatinine Glucose POC Glucose 224 H 177 H 193 H Uric Acid Calcium Phosphorus Magnesium Iron TIBC AST ALT Total Creatine Kinase CK-MB (CK-2) Troponin T NT-Pro-B Natriuret Pep Total Protein Albumin Triglycerides HDL Cholesterol Folate Urine WBC (Auto) Urine Creatinine Urine Total Protein Vancomycin Trough 06/16/19 06/16/19 06/16/19 05:00 05:00 05:40 WBC 11.9 H RBC 3.24 L Hgb 9.0 L Hct 29.0 L MCV MCH MCHC 31 L RDW 18.6 H Plt Count 111 L Lymph % (Auto) [place] % (Auto) Eos % (Auto) Lymph # [place] # Eos # Seg Neutrophils % Seg Neuts % (Manual) 92.0 H Lymphocytes % (Manual) 2.0 L Monocytes % (Manual) Eosinophils % (Manual) Nucleated RBC % Seg Neutrophils # Seg Neutrophils # Man 10.9 H Lymphocytes # (Manual) 0.2 L Monocytes # (Manual) Eosinophils # (Manual) PT INR APTT Fibrinogen POC ABG pH ABG pH POC ABG pCO2 POC ABG pO2 ABG pO2 ABG HCO3 ABG O2 Saturation ABG Base Excess ABG Hemoglobin Oxyhemoglobin Sodium Potassium Chloride Carbon Dioxide 33 H BUN 49 H Creatinine 0.7 L Glucose 264 H POC Glucose 247 H Uric Acid Calcium Phosphorus Magnesium Iron TIBC AST ALT Total Creatine Kinase CK-MB (CK-2) Troponin T NT-Pro-B Natriuret Pep Total Protein Albumin Triglycerides HDL Cholesterol Folate Urine WBC (Auto) Urine Creatinine Urine Total Protein Vancomycin Trough 06/16/19 06/16/19 06/16/19 12:03 17:11 18:11 WBC RBC Hgb Hct MCV MCH MCHC RDW Plt Count Lymph % (Auto) [place] % (Auto) Eos % (Auto) Lymph # [place] # Eos # Seg Neutrophils % Seg Neuts % (Manual) Lymphocytes % (Manual) Monocytes % (Manual) Eosinophils % (Manual) Nucleated RBC % Seg Neutrophils # Seg Neutrophils # Man Lymphocytes # (Manual) Monocytes # (Manual) Eosinophils # (Manual) PT INR APTT Fibrinogen POC ABG pH ABG pH 7.289 L POC ABG pCO2 POC ABG pO2 ABG pO2 399.3 H ABG HCO3 30.1 H ABG O2 Saturation 99.6 H ABG Base Excess ABG Hemoglobin 8.6 L Oxyhemoglobin Sodium Potassium Chloride Carbon Dioxide BUN Creatinine Glucose POC Glucose 252 H 254 H Uric Acid Calcium Phosphorus Magnesium Iron TIBC AST ALT Total Creatine Kinase CK-MB (CK-2) Troponin T NT-Pro-B Natriuret Pep Total Protein Albumin Triglycerides HDL Cholesterol Folate Urine WBC (Auto) Urine Creatinine Urine Total Protein Vancomycin Trough 06/16/19 06/17/19 06/17/19 23:16 05:30 05:53 WBC RBC Hgb Hct MCV MCH MCHC RDW Plt Count Lymph % (Auto) [place] % (Auto) Eos % (Auto) Lymph # [place] # Eos # Seg Neutrophils % Seg Neuts % (Manual) Lymphocytes % (Manual) Monocytes % (Manual) Eosinophils % (Manual) Nucleated RBC % Seg Neutrophils # Seg Neutrophils # Man Lymphocytes # (Manual) Monocytes # (Manual) Eosinophils # (Manual) PT INR APTT Fibrinogen POC ABG pH ABG pH POC ABG pCO2 POC ABG pO2 ABG pO2 ABG HCO3 ABG O2 Saturation ABG Base Excess ABG Hemoglobin Oxyhemoglobin Sodium 147 H Potassium Chloride Carbon Dioxide 32 H BUN 60 H Creatinine Glucose 205 H POC Glucose 238 H 211 H Uric Acid Calcium Phosphorus Magnesium Iron TIBC AST ALT Total Creatine Kinase CK-MB (CK-2) Troponin T NT-Pro-B Natriuret Pep Total Protein Albumin Triglycerides HDL Cholesterol Folate Urine WBC (Auto) Urine Creatinine Urine Total Protein Vancomycin Trough 06/17/19 06/17/19 06/17/19 09:50 12:27 12:45 WBC RBC 2.79 L Hgb 8.2 L Hct 24.6 L MCV MCH MCHC RDW 18.5 H Plt Count 95 L Lymph % (Auto) [place] % (Auto) Eos % (Auto) Lymph # [place] # Eos # Seg Neutrophils % Seg Neuts % (Manual) Lymphocytes % (Manual) Monocytes % (Manual) Eosinophils % (Manual) Nucleated RBC % Seg Neutrophils # Seg Neutrophils # Man Lymphocytes # (Manual) Monocytes # (Manual) Eosinophils # (Manual) PT INR APTT Fibrinogen 194 L POC ABG pH ABG pH POC ABG pCO2 POC ABG pO2 ABG pO2 ABG HCO3 ABG O2 Saturation ABG Base Excess ABG Hemoglobin Oxyhemoglobin Sodium Potassium Chloride Carbon Dioxide BUN Creatinine Glucose POC Glucose 224 H Uric Acid Calcium Phosphorus Magnesium Iron TIBC AST ALT Total Creatine Kinase CK-MB (CK-2) Troponin T NT-Pro-B Natriuret Pep Total Protein Albumin Triglycerides HDL Cholesterol Folate Urine WBC (Auto) Urine Creatinine Urine Total Protein Vancomycin Trough 06/17/19 06/17/19 06/17/19 18:41 22:00 23:23 WBC RBC Hgb Hct MCV MCH MCHC RDW Plt Count Lymph % (Auto) [place] % (Auto) Eos % (Auto) Lymph # [place] # Eos # Seg Neutrophils % Seg Neuts % (Manual) Lymphocytes % (Manual) Monocytes % (Manual) Eosinophils % (Manual) Nucleated RBC % Seg Neutrophils # Seg Neutrophils # Man Lymphocytes # (Manual) Monocytes # (Manual) Eosinophils # (Manual) PT INR APTT Fibrinogen POC ABG pH ABG pH POC ABG pCO2 POC ABG pO2 ABG pO2 ABG HCO3 ABG O2 Saturation ABG Base Excess ABG Hemoglobin Oxyhemoglobin Sodium Potassium Chloride Carbon Dioxide BUN Creatinine Glucose POC Glucose 198 H 166 H 171 H Uric Acid Calcium Phosphorus Magnesium Iron TIBC AST ALT Total Creatine Kinase CK-MB (CK-2) Troponin T NT-Pro-B Natriuret Pep Total Protein Albumin Triglycerides HDL Cholesterol Folate Urine WBC (Auto) Urine Creatinine Urine Total Protein Vancomycin Trough 06/17/19 06/18/19 06/18/19 Unknown 03:50 04:25 WBC RBC Hgb Hct MCV MCH MCHC RDW Plt Count Lymph % (Auto) [place] % (Auto) Eos % (Auto) Lymph # [place] # Eos # Seg Neutrophils % Seg Neuts % (Manual) Lymphocytes % (Manual) Monocytes % (Manual) Eosinophils % (Manual) Nucleated RBC % Seg Neutrophils # Seg Neutrophils # Man Lymphocytes # (Manual) Monocytes # (Manual) Eosinophils # (Manual) PT INR APTT Fibrinogen POC ABG pH ABG pH 7.564 H 7.499 H POC ABG pCO2 POC ABG pO2 ABG pO2 238.6 H 130.8 H ABG HCO3 33.6 H 32.5 H ABG O2 Saturation 99.4 H ABG Base Excess 10.6 H 8.5 H ABG Hemoglobin 7.9 L 8.8 L Oxyhemoglobin Sodium 151 H Potassium 3.4 L Chloride Carbon Dioxide BUN 66 H Creatinine Glucose 189 H POC Glucose Uric Acid Calcium Phosphorus Magnesium Iron TIBC AST ALT Total Creatine Kinase CK-MB (CK-2) Troponin T NT-Pro-B Natriuret Pep Total Protein Albumin Triglycerides HDL Cholesterol Folate Urine WBC (Auto) Urine Creatinine Urine Total Protein Vancomycin Trough 06/18/19 06/18/19 06/18/19 05:25 05:27 11:50 WBC RBC 2.61 L Hgb 7.4 L Hct 22.9 L MCV MCH MCHC RDW 19.9 H Plt Count 81 L Lymph % (Auto) 12.9 L [place] % (Auto) 7.7 H Eos % (Auto) Lymph # 1.1 L [place] # Eos # Seg Neutrophils % 77.4 H Seg Neuts % (Manual) Lymphocytes % (Manual) Monocytes % (Manual) Eosinophils % (Manual) Nucleated RBC % Seg Neutrophils # Seg Neutrophils # Man Lymphocytes # (Manual) Monocytes # (Manual) Eosinophils # (Manual) PT INR APTT Fibrinogen POC ABG pH ABG pH POC ABG pCO2 POC ABG pO2 ABG pO2 ABG HCO3 ABG O2 Saturation ABG Base Excess ABG Hemoglobin Oxyhemoglobin Sodium Potassium Chloride Carbon Dioxide BUN Creatinine Glucose POC Glucose 186 H 263 H Uric Acid Calcium Phosphorus Magnesium Iron TIBC AST ALT Total Creatine Kinase CK-MB (CK-2) Troponin T NT-Pro-B Natriuret Pep Total Protein Albumin Triglycerides HDL Cholesterol Folate Urine WBC (Auto) Urine Creatinine Urine Total Protein Vancomycin Trough 06/18/19 06/18/19 06/18/19 18:35 21:31 23:21 WBC RBC Hgb Hct MCV MCH MCHC RDW Plt Count Lymph % (Auto) [place] % (Auto) Eos % (Auto) Lymph # [place] # Eos # Seg Neutrophils % Seg Neuts % (Manual) Lymphocytes % (Manual) Monocytes % (Manual) Eosinophils % (Manual) Nucleated RBC % Seg Neutrophils # Seg Neutrophils # Man Lymphocytes # (Manual) Monocytes # (Manual) Eosinophils # (Manual) PT INR APTT Fibrinogen POC ABG pH ABG pH POC ABG pCO2 POC ABG pO2 ABG pO2 ABG HCO3 ABG O2 Saturation ABG Base Excess ABG Hemoglobin Oxyhemoglobin Sodium Potassium Chloride Carbon Dioxide BUN Creatinine Glucose POC Glucose 154 H 186 H 202 H Uric Acid Calcium Phosphorus Magnesium Iron TIBC AST ALT Total Creatine Kinase CK-MB (CK-2) Troponin T NT-Pro-B Natriuret Pep Total Protein Albumin Triglycerides HDL Cholesterol Folate Urine WBC (Auto) Urine Creatinine Urine Total Protein Vancomycin Trough 06/19/19 06/19/19 06/19/19 03:18 04:30 04:30 WBC RBC 2.65 L Hgb 7.5 L Hct 23.1 L MCV MCH MCHC RDW 19.4 H Plt Count 74 L Lymph % (Auto) 8.8 L [place] % (Auto) 9.4 H Eos % (Auto) 4.7 H Lymph # 0.6 L [place] # Eos # Seg Neutrophils % 76.6 H Seg Neuts % (Manual) Lymphocytes % (Manual) Monocytes % (Manual) Eosinophils % (Manual) Nucleated RBC % Seg Neutrophils # Seg Neutrophils # Man Lymphocytes # (Manual) Monocytes # (Manual) Eosinophils # (Manual) PT INR APTT Fibrinogen POC ABG pH ABG pH 7.452 H POC ABG pCO2 POC ABG pO2 ABG pO2 105.5 H ABG HCO3 32.3 H ABG O2 Saturation ABG Base Excess 7.6 H ABG Hemoglobin 6.9 L Oxyhemoglobin Sodium 150 H Potassium 3.3 L Chloride Carbon Dioxide 31 H BUN 56 H Creatinine Glucose 197 H POC Glucose Uric Acid Calcium Phosphorus Magnesium Iron TIBC AST ALT Total Creatine Kinase CK-MB (CK-2) Troponin T NT-Pro-B Natriuret Pep Total Protein Albumin Triglycerides 210 H HDL Cholesterol Folate Urine WBC (Auto) Urine Creatinine Urine Total Protein Vancomycin Trough 06/19/19 06/19/19 06/19/19 05:24 12:18 18:55 WBC RBC Hgb Hct MCV MCH MCHC RDW Plt Count Lymph % (Auto) [place] % (Auto) Eos % (Auto) Lymph # [place] # Eos # Seg Neutrophils % Seg Neuts % (Manual) Lymphocytes % (Manual) Monocytes % (Manual) Eosinophils % (Manual) Nucleated RBC % Seg Neutrophils # Seg Neutrophils # Man Lymphocytes # (Manual) Monocytes # (Manual) Eosinophils # (Manual) PT INR APTT Fibrinogen POC ABG pH ABG pH POC ABG pCO2 POC ABG pO2 ABG pO2 ABG HCO3 ABG O2 Saturation ABG Base Excess ABG Hemoglobin Oxyhemoglobin Sodium Potassium Chloride Carbon Dioxide BUN Creatinine Glucose POC Glucose 176 H 260 H 192 H Uric Acid Calcium Phosphorus Magnesium Iron TIBC AST ALT Total Creatine Kinase CK-MB (CK-2) Troponin T NT-Pro-B Natriuret Pep Total Protein Albumin Triglycerides HDL Cholesterol Folate Urine WBC (Auto) Urine Creatinine Urine Total Protein Vancomycin Trough 06/19/19 06/19/19 06/20/19 22:57 23:46 04:40 WBC RBC 2.79 L Hgb 7.9 L Hct 24.3 L MCV MCH MCHC RDW 19.6 H Plt Count 92 L Lymph % (Auto) 9.2 L [place] % (Auto) 12.0 H Eos % (Auto) 5.2 H Lymph # 0.9 L [place] # 1.2 H Eos # 0.5 H Seg Neutrophils % 73.3 H Seg Neuts % (Manual) Lymphocytes % (Manual) Monocytes % (Manual) Eosinophils % (Manual) Nucleated RBC % Seg Neutrophils # Seg Neutrophils # Man Lymphocytes # (Manual) Monocytes # (Manual) Eosinophils # (Manual) PT INR APTT Fibrinogen POC ABG pH ABG pH POC ABG pCO2 POC ABG pO2 ABG pO2 ABG HCO3 ABG O2 Saturation ABG Base Excess ABG Hemoglobin Oxyhemoglobin Sodium Potassium Chloride Carbon Dioxide BUN Creatinine Glucose POC Glucose 145 H 216 H Uric Acid Calcium Phosphorus Magnesium Iron TIBC AST ALT Total Creatine Kinase CK-MB (CK-2) Troponin T NT-Pro-B Natriuret Pep Total Protein Albumin Triglycerides HDL Cholesterol Folate Urine WBC (Auto) Urine Creatinine Urine Total Protein Vancomycin Trough 06/20/19 06/20/19 06/20/19 04:40 05:40 05:54 WBC RBC Hgb Hct MCV MCH MCHC RDW Plt Count Lymph % (Auto) [place] % (Auto) Eos % (Auto) Lymph # [place] # Eos # Seg Neutrophils % Seg Neuts % (Manual) Lymphocytes % (Manual) Monocytes % (Manual) Eosinophils % (Manual) Nucleated RBC % Seg Neutrophils # Seg Neutrophils # Man Lymphocytes # (Manual) Monocytes # (Manual) Eosinophils # (Manual) PT INR APTT Fibrinogen POC ABG pH ABG pH 7.455 H POC ABG pCO2 POC ABG pO2 ABG pO2 60.9 L ABG HCO3 30.3 H ABG O2 Saturation 92.3 L ABG Base Excess 5.8 H ABG Hemoglobin 8.2 L Oxyhemoglobin 90.1 L Sodium Potassium 3.5 L Chloride Carbon Dioxide BUN 59 H Creatinine Glucose 200 H POC Glucose 190 H Uric Acid Calcium Phosphorus Magnesium 1.60 L Iron TIBC AST ALT Total Creatine Kinase CK-MB (CK-2) Troponin T NT-Pro-B Natriuret Pep Total Protein Albumin Triglycerides HDL Cholesterol Folate Urine WBC (Auto) Urine Creatinine Urine Total Protein Vancomycin Trough 06/20/19 06/20/19 06/20/19 09:12 09:12 12:24 WBC RBC Hgb Hct MCV MCH MCHC RDW Plt Count Lymph % (Auto) [place] % (Auto) Eos % (Auto) Lymph # [place] # Eos # Seg Neutrophils % Seg Neuts % (Manual) Lymphocytes % (Manual) Monocytes % (Manual) Eosinophils % (Manual) Nucleated RBC % Seg Neutrophils # Seg Neutrophils # Man Lymphocytes # (Manual) Monocytes # (Manual) Eosinophils # (Manual) PT INR APTT Fibrinogen POC ABG pH ABG pH POC ABG pCO2 POC ABG pO2 ABG pO2 ABG HCO3 ABG O2 Saturation ABG Base Excess ABG Hemoglobin Oxyhemoglobin Sodium Potassium Chloride Carbon Dioxide BUN Creatinine Glucose POC Glucose 225 H Uric Acid Calcium Phosphorus Magnesium Iron 45 L TIBC 110 L AST ALT Total Creatine Kinase CK-MB (CK-2) Troponin T NT-Pro-B Natriuret Pep Total Protein Albumin Triglycerides HDL Cholesterol Folate 7.01 L Urine WBC (Auto) Urine Creatinine Urine Total Protein Vancomycin Trough 06/20/19 06/20/19 06/20/19 17:42 21:55 23:24 WBC RBC Hgb Hct MCV MCH MCHC RDW Plt Count Lymph % (Auto) [place] % (Auto) Eos % (Auto) Lymph # [place] # Eos # Seg Neutrophils % Seg Neuts % (Manual) Lymphocytes % (Manual) Monocytes % (Manual) Eosinophils % (Manual) Nucleated RBC % Seg Neutrophils # Seg Neutrophils # Man Lymphocytes # (Manual) Monocytes # (Manual) Eosinophils # (Manual) PT INR APTT Fibrinogen POC ABG pH ABG pH POC ABG pCO2 POC ABG pO2 ABG pO2 ABG HCO3 ABG O2 Saturation ABG Base Excess ABG Hemoglobin Oxyhemoglobin Sodium Potassium Chloride Carbon Dioxide BUN Creatinine Glucose POC Glucose 255 H 218 H 215 H Uric Acid Calcium Phosphorus Magnesium Iron TIBC AST ALT Total Creatine Kinase CK-MB (CK-2) Troponin T NT-Pro-B Natriuret Pep Total Protein Albumin Triglycerides HDL Cholesterol Folate Urine WBC (Auto) Urine Creatinine Urine Total Protein Vancomycin Trough 06/21/19 06/21/19 06/21/19 03:32 03:40 05:20 WBC 12.8 H RBC 3.03 L Hgb 8.5 L Hct 26.2 L MCV MCH MCHC RDW 19.4 H Plt Count 131 L Lymph % (Auto) [place] % (Auto) Eos % (Auto) Lymph # [place] # Eos # Seg Neutrophils % Seg Neuts % (Manual) 78.0 H Lymphocytes % (Manual) 5.0 L Monocytes % (Manual) 11.0 H Eosinophils % (Manual) Nucleated RBC % Seg Neutrophils # Seg Neutrophils # Man 10.0 H Lymphocytes # (Manual) 0.6 L Monocytes # (Manual) 1.4 H Eosinophils # (Manual) 0.5 H PT INR APTT Fibrinogen POC ABG pH ABG pH 7.476 H POC ABG pCO2 POC ABG pO2 ABG pO2 162.0 H ABG HCO3 26.8 H ABG O2 Saturation 99.1 H ABG Base Excess 3.1 H ABG Hemoglobin 8.6 L Oxyhemoglobin Sodium Potassium Chloride Carbon Dioxide BUN Creatinine Glucose POC Glucose 202 H Uric Acid Calcium Phosphorus Magnesium Iron TIBC AST ALT Total Creatine Kinase CK-MB (CK-2) Troponin T NT-Pro-B Natriuret Pep Total Protein Albumin Triglycerides HDL Cholesterol Folate Urine WBC (Auto) Urine Creatinine Urine Total Protein Vancomycin Trough 06/21/19 06/21/19 06/21/19 05:20 12:30 18:18 WBC RBC Hgb Hct MCV MCH MCHC RDW Plt Count Lymph % (Auto) [place] % (Auto) Eos % (Auto) Lymph # [place] # Eos # Seg Neutrophils % Seg Neuts % (Manual) Lymphocytes % (Manual) Monocytes % (Manual) Eosinophils % (Manual) Nucleated RBC % Seg Neutrophils # Seg Neutrophils # Man Lymphocytes # (Manual) Monocytes # (Manual) Eosinophils # (Manual) PT INR APTT Fibrinogen POC ABG pH ABG pH POC ABG pCO2 POC ABG pO2 ABG pO2 ABG HCO3 ABG O2 Saturation ABG Base Excess ABG Hemoglobin Oxyhemoglobin Sodium Potassium Chloride 97.7 L Carbon Dioxide BUN 69 H Creatinine Glucose 239 H POC Glucose 176 H 187 H Uric Acid Calcium Phosphorus Magnesium 2.40 H Iron TIBC AST ALT Total Creatine Kinase CK-MB (CK-2) Troponin T NT-Pro-B Natriuret Pep Total Protein Albumin Triglycerides HDL Cholesterol Folate Urine WBC (Auto) Urine Creatinine Urine Total Protein Vancomycin Trough 06/22/19 06/22/19 06/22/19 04:11 05:30 05:30 WBC 12.6 H RBC 3.10 L Hgb 8.7 L Hct 27.0 L MCV MCH MCHC RDW 19.8 H Plt Count Lymph % (Auto) [place] % (Auto) Eos % (Auto) Lymph # [place] # Eos # Seg Neutrophils % Seg Neuts % (Manual) Lymphocytes % (Manual) Monocytes % (Manual) 10.0 H Eosinophils % (Manual) Nucleated RBC % Seg Neutrophils # Seg Neutrophils # Man 8.7 H Lymphocytes # (Manual) Monocytes # (Manual) 1.3 H Eosinophils # (Manual) PT INR APTT Fibrinogen POC ABG pH ABG pH POC ABG pCO2 POC ABG pO2 ABG pO2 ABG HCO3 27.7 H ABG O2 Saturation ABG Base Excess 3.3 H ABG Hemoglobin 8.5 L Oxyhemoglobin 94.9 L Sodium Potassium Chloride Carbon Dioxide BUN 66 H Creatinine Glucose 103 H POC Glucose Uric Acid Calcium Phosphorus Magnesium Iron TIBC AST ALT Total Creatine Kinase CK-MB (CK-2) Troponin T NT-Pro-B Natriuret Pep Total Protein Albumin Triglycerides HDL Cholesterol Folate Urine WBC (Auto) Urine Creatinine Urine Total Protein Vancomycin Trough 06/22/19 06/22/19 06/23/19 17:43 23:25 02:00 WBC RBC Hgb Hct MCV MCH MCHC RDW Plt Count Lymph % (Auto) [place] % (Auto) Eos % (Auto) Lymph # [place] # Eos # Seg Neutrophils % Seg Neuts % (Manual) Lymphocytes % (Manual) Monocytes % (Manual) Eosinophils % (Manual) Nucleated RBC % Seg Neutrophils # Seg Neutrophils # Man Lymphocytes # (Manual) Monocytes # (Manual) Eosinophils # (Manual) PT INR APTT Fibrinogen POC ABG pH ABG pH 7.469 H POC ABG pCO2 POC ABG pO2 ABG pO2 58.7 L ABG HCO3 28.0 H ABG O2 Saturation 94.6 L ABG Base Excess 4.0 H ABG Hemoglobin 7.1 L Oxyhemoglobin 92.2 L Sodium Potassium Chloride Carbon Dioxide BUN Creatinine Glucose POC Glucose 143 H 106 H Uric Acid Calcium Phosphorus Magnesium Iron TIBC AST ALT Total Creatine Kinase CK-MB (CK-2) Troponin T NT-Pro-B Natriuret Pep Total Protein Albumin Triglycerides HDL Cholesterol Folate Urine WBC (Auto) Urine Creatinine Urine Total Protein Vancomycin Trough 06/23/19 06/23/19 06/23/19 05:24 05:24 11:43 WBC 12.6 H RBC 2.96 L Hgb 8.3 L Hct 25.5 L MCV MCH MCHC RDW 20.2 H Plt Count Lymph % (Auto) [place] % (Auto) Eos % (Auto) Lymph # [place] # Eos # Seg Neutrophils % Seg Neuts % (Manual) Lymphocytes % (Manual) 12.0 L Monocytes % (Manual) 11.0 H Eosinophils % (Manual) 6.0 H Nucleated RBC % Seg Neutrophils # Seg Neutrophils # Man 8.8 H Lymphocytes # (Manual) Monocytes # (Manual) 1.4 H Eosinophils # (Manual) 0.8 H PT INR APTT Fibrinogen POC ABG pH ABG pH POC ABG pCO2 POC ABG pO2 ABG pO2 ABG HCO3 ABG O2 Saturation ABG Base Excess ABG Hemoglobin Oxyhemoglobin Sodium 146 H Potassium 3.5 L Chloride Carbon Dioxide BUN 48 H Creatinine Glucose 123 H POC Glucose 120 H Uric Acid Calcium Phosphorus Magnesium Iron TIBC AST ALT Total Creatine Kinase CK-MB (CK-2) Troponin T NT-Pro-B Natriuret Pep Total Protein Albumin Triglycerides HDL Cholesterol Folate Urine WBC (Auto) Urine Creatinine Urine Total Protein Vancomycin Trough 06/23/19 06/24/19 06/24/19 17:39 06:53 06:53 WBC 12.3 H RBC 2.87 L Hgb 8.0 L Hct 24.9 L MCV MCH MCHC RDW 20.5 H Plt Count Lymph % (Auto) [place] % (Auto) 8.8 H Eos % (Auto) 4.4 H Lymph # [place] # 1.1 H Eos # 0.5 H Seg Neutrophils % Seg Neuts % (Manual) Lymphocytes % (Manual) Monocytes % (Manual) Eosinophils % (Manual) Nucleated RBC % Seg Neutrophils # Seg Neutrophils # Man Lymphocytes # (Manual) Monocytes # (Manual) Eosinophils # (Manual) PT INR APTT Fibrinogen POC ABG pH ABG pH POC ABG pCO2 POC ABG pO2 ABG pO2 ABG HCO3 ABG O2 Saturation ABG Base Excess ABG Hemoglobin Oxyhemoglobin Sodium Potassium Chloride 107.1 H Carbon Dioxide 21 L BUN 29 H Creatinine 0.6 L Glucose 117 H POC Glucose 111 H Uric Acid Calcium Phosphorus Magnesium 1.60 L Iron TIBC AST ALT Total Creatine Kinase CK-MB (CK-2) Troponin T NT-Pro-B Natriuret Pep Total Protein Albumin Triglycerides HDL Cholesterol Folate Urine WBC (Auto) Urine Creatinine Urine Total Protein Vancomycin Trough 06/24/19 06/24/19 06/24/19 12:12 18:01 23:20 WBC RBC Hgb Hct MCV MCH MCHC RDW Plt Count Lymph % (Auto) [place] % (Auto) Eos % (Auto) Lymph # [place] # Eos # Seg Neutrophils % Seg Neuts % (Manual) Lymphocytes % (Manual) Monocytes % (Manual) Eosinophils % (Manual) Nucleated RBC % Seg Neutrophils # Seg Neutrophils # Man Lymphocytes # (Manual) Monocytes # (Manual) Eosinophils # (Manual) PT INR APTT Fibrinogen POC ABG pH ABG pH POC ABG pCO2 POC ABG pO2 ABG pO2 ABG HCO3 ABG O2 Saturation ABG Base Excess ABG Hemoglobin Oxyhemoglobin Sodium Potassium Chloride Carbon Dioxide BUN Creatinine Glucose POC Glucose 158 H 133 H 106 H Uric Acid Calcium Phosphorus Magnesium Iron TIBC AST ALT Total Creatine Kinase CK-MB (CK-2) Troponin T NT-Pro-B Natriuret Pep Total Protein Albumin Triglycerides HDL Cholesterol Folate Urine WBC (Auto) Urine Creatinine Urine Total Protein Vancomycin Trough 06/25/19 06/25/19 06/25/19 04:46 04:46 05:36 WBC 12.3 H RBC 2.98 L Hgb 8.3 L Hct 26.4 L MCV MCH MCHC 31 L RDW 20.1 H Plt Count Lymph % (Auto) [place] % (Auto) Eos % (Auto) Lymph # [place] # Eos # Seg Neutrophils % Seg Neuts % (Manual) Lymphocytes % (Manual) Monocytes % (Manual) 10.0 H Eosinophils % (Manual) Nucleated RBC % Seg Neutrophils # Seg Neutrophils # Man 8.1 H Lymphocytes # (Manual) Monocytes # (Manual) 1.2 H Eosinophils # (Manual) PT INR APTT Fibrinogen POC ABG pH ABG pH POC ABG pCO2 POC ABG pO2 ABG pO2 ABG HCO3 ABG O2 Saturation ABG Base Excess ABG Hemoglobin Oxyhemoglobin Sodium 148 H Potassium Chloride 108.0 H Carbon Dioxide BUN 21 H Creatinine 0.7 L Glucose 120 H POC Glucose 121 H Uric Acid Calcium Phosphorus Magnesium Iron TIBC AST ALT Total Creatine Kinase CK-MB (CK-2) Troponin T NT-Pro-B Natriuret Pep Total Protein Albumin Triglycerides HDL Cholesterol Folate Urine WBC (Auto) Urine Creatinine Urine Total Protein Vancomycin Trough 06/25/19 06/25/19 06/26/19 14:02 18:30 00:01 WBC RBC Hgb Hct MCV MCH MCHC RDW Plt Count Lymph % (Auto) [place] % (Auto) Eos % (Auto) Lymph # [place] # Eos # Seg Neutrophils % Seg Neuts % (Manual) Lymphocytes % (Manual) Monocytes % (Manual) Eosinophils % (Manual) Nucleated RBC % Seg Neutrophils # Seg Neutrophils # Man Lymphocytes # (Manual) Monocytes # (Manual) Eosinophils # (Manual) PT INR APTT Fibrinogen POC ABG pH ABG pH POC ABG pCO2 POC ABG pO2 ABG pO2 ABG HCO3 ABG O2 Saturation ABG Base Excess ABG Hemoglobin Oxyhemoglobin Sodium Potassium Chloride Carbon Dioxide BUN Creatinine Glucose POC Glucose 125 H 145 H 142 H Uric Acid Calcium Phosphorus Magnesium Iron TIBC AST ALT Total Creatine Kinase CK-MB (CK-2) Troponin T NT-Pro-B Natriuret Pep Total Protein Albumin Triglycerides HDL Cholesterol Folate Urine WBC (Auto) Urine Creatinine Urine Total Protein Vancomycin Trough 06/26/19 06/26/19 06/26/19 04:43 04:43 05:41 WBC RBC 3.02 L Hgb 8.6 L Hct 27.0 L MCV MCH MCHC RDW 20.4 H Plt Count Lymph % (Auto) [place] % (Auto) Eos % (Auto) Lymph # [place] # Eos # Seg Neutrophils % Seg Neuts % (Manual) Lymphocytes % (Manual) Monocytes % (Manual) 9.0 H Eosinophils % (Manual) Nucleated RBC % Seg Neutrophils # Seg Neutrophils # Man Lymphocytes # (Manual) Monocytes # (Manual) 1.0 H Eosinophils # (Manual) PT INR APTT Fibrinogen POC ABG pH ABG pH POC ABG pCO2 POC ABG pO2 ABG pO2 ABG HCO3 ABG O2 Saturation ABG Base Excess ABG Hemoglobin Oxyhemoglobin Sodium Potassium Chloride Carbon Dioxide BUN Creatinine 0.7 L Glucose 111 H POC Glucose 110 H Uric Acid Calcium Phosphorus Magnesium 1.60 L Iron TIBC AST ALT Total Creatine Kinase CK-MB (CK-2) Troponin T NT-Pro-B Natriuret Pep Total Protein Albumin Triglycerides HDL Cholesterol Folate Urine WBC (Auto) Urine Creatinine Urine Total Protein Vancomycin Trough 06/26/19 06/26/19 06/27/19 11:55 18:07 12:10 WBC RBC Hgb Hct MCV MCH MCHC RDW Plt Count Lymph % (Auto) [place] % (Auto) Eos % (Auto) Lymph # [place] # Eos # Seg Neutrophils % Seg Neuts % (Manual) Lymphocytes % (Manual) Monocytes % (Manual) Eosinophils % (Manual) Nucleated RBC % Seg Neutrophils # Seg Neutrophils # Man Lymphocytes # (Manual) Monocytes # (Manual) Eosinophils # (Manual) PT INR APTT Fibrinogen POC ABG pH ABG pH POC ABG pCO2 POC ABG pO2 ABG pO2 ABG HCO3 ABG O2 Saturation ABG Base Excess ABG Hemoglobin Oxyhemoglobin Sodium Potassium Chloride Carbon Dioxide BUN Creatinine Glucose POC Glucose 159 H 107 H 121 H Uric Acid Calcium Phosphorus Magnesium Iron TIBC AST ALT Total Creatine Kinase CK-MB (CK-2) Troponin T NT-Pro-B Natriuret Pep Total Protein Albumin Triglycerides HDL Cholesterol Folate Urine WBC (Auto) Urine Creatinine Urine Total Protein Vancomycin Trough 06/28/19 06/29/19 06/29/19 05:54 13:10 17:58 WBC RBC Hgb Hct MCV MCH MCHC RDW Plt Count Lymph % (Auto) [place] % (Auto) Eos % (Auto) Lymph # [place] # Eos # Seg Neutrophils % Seg Neuts % (Manual) Lymphocytes % (Manual) Monocytes % (Manual) Eosinophils % (Manual) Nucleated RBC % Seg Neutrophils # Seg Neutrophils # Man Lymphocytes # (Manual) Monocytes # (Manual) Eosinophils # (Manual) PT INR APTT Fibrinogen POC ABG pH ABG pH POC ABG pCO2 POC ABG pO2 ABG pO2 ABG HCO3 ABG O2 Saturation ABG Base Excess ABG Hemoglobin Oxyhemoglobin Sodium Potassium Chloride Carbon Dioxide BUN Creatinine Glucose POC Glucose 107 H 115 H 108 H Uric Acid Calcium Phosphorus Magnesium Iron TIBC AST ALT Total Creatine Kinase CK-MB (CK-2) Troponin T NT-Pro-B Natriuret Pep Total Protein Albumin Triglycerides HDL Cholesterol Folate Urine WBC (Auto) Urine Creatinine Urine Total Protein Vancomycin Trough 06/30/19 06/30/19 07/01/19 12:00 18:13 05:49 WBC RBC Hgb Hct MCV MCH MCHC RDW Plt Count Lymph % (Auto) [place] % (Auto) Eos % (Auto) Lymph # [place] # Eos # Seg Neutrophils % Seg Neuts % (Manual) Lymphocytes % (Manual) Monocytes % (Manual) Eosinophils % (Manual) Nucleated RBC % Seg Neutrophils # Seg Neutrophils # Man Lymphocytes # (Manual) Monocytes # (Manual) Eosinophils # (Manual) PT INR APTT Fibrinogen POC ABG pH ABG pH POC ABG pCO2 POC ABG pO2 ABG pO2 ABG HCO3 ABG O2 Saturation ABG Base Excess ABG Hemoglobin Oxyhemoglobin Sodium Potassium Chloride Carbon Dioxide BUN Creatinine Glucose POC Glucose 108 H 114 H 114 H Uric Acid Calcium Phosphorus Magnesium Iron TIBC AST ALT Total Creatine Kinase CK-MB (CK-2) Troponin T NT-Pro-B Natriuret Pep Total Protein Albumin Triglycerides HDL Cholesterol Folate Urine WBC (Auto) Urine Creatinine Urine Total Protein Vancomycin Trough 07/01/19 07/01/19 07/01/19 07:58 07:58 12:06 WBC 11.5 H RBC 3.24 L Hgb 9.0 L Hct 28.4 L MCV MCH MCHC RDW 20.8 H Plt Count Lymph % (Auto) 8.3 L [place] % (Auto) 10.0 H Eos % (Auto) Lymph # 0.9 L [place] # 1.2 H Eos # Seg Neutrophils % 79.4 H Seg Neuts % (Manual) Lymphocytes % (Manual) Monocytes % (Manual) Eosinophils % (Manual) Nucleated RBC % Seg Neutrophils # 9.1 H Seg Neutrophils # Man Lymphocytes # (Manual) Monocytes # (Manual) Eosinophils # (Manual) PT INR APTT Fibrinogen POC ABG pH ABG pH POC ABG pCO2 POC ABG pO2 ABG pO2 ABG HCO3 ABG O2 Saturation ABG Base Excess ABG Hemoglobin Oxyhemoglobin Sodium Potassium Chloride Carbon Dioxide BUN Creatinine 0.4 L Glucose 130 H POC Glucose 133 H Uric Acid Calcium Phosphorus Magnesium Iron TIBC AST ALT Total Creatine Kinase CK-MB (CK-2) Troponin T NT-Pro-B Natriuret Pep Total Protein Albumin Triglycerides HDL Cholesterol Folate Urine WBC (Auto) Urine Creatinine Urine Total Protein Vancomycin Trough 07/02/19 07/02/19 07/02/19 05:54 13:27 13:39 WBC RBC Hgb Hct MCV MCH MCHC RDW Plt Count Lymph % (Auto) [place] % (Auto) Eos % (Auto) Lymph # [place] # Eos # Seg Neutrophils % Seg Neuts % (Manual) Lymphocytes % (Manual) Monocytes % (Manual) Eosinophils % (Manual) Nucleated RBC % Seg Neutrophils # Seg Neutrophils # Man Lymphocytes # (Manual) Monocytes # (Manual) Eosinophils # (Manual) PT INR APTT Fibrinogen POC ABG pH ABG pH POC ABG pCO2 POC ABG pO2 ABG pO2 ABG HCO3 ABG O2 Saturation ABG Base Excess ABG Hemoglobin Oxyhemoglobin Sodium Potassium Chloride Carbon Dioxide BUN Creatinine Glucose POC Glucose 111 H 123 H 116 H Uric Acid Calcium Phosphorus Magnesium Iron TIBC AST ALT Total Creatine Kinase CK-MB (CK-2) Troponin T NT-Pro-B Natriuret Pep Total Protein Albumin Triglycerides HDL Cholesterol Folate Urine WBC (Auto) Urine Creatinine Urine Total Protein Vancomycin Trough 07/02/19 07/03/19 18:00 06:06 WBC RBC Hgb Hct MCV MCH MCHC RDW Plt Count Lymph % (Auto) [place] % (Auto) Eos % (Auto) Lymph # [place] # Eos # Seg Neutrophils % Seg Neuts % (Manual) Lymphocytes % (Manual) Monocytes % (Manual) Eosinophils % (Manual) Nucleated RBC % Seg Neutrophils # Seg Neutrophils # Man Lymphocytes # (Manual) Monocytes # (Manual) Eosinophils # (Manual) PT INR APTT Fibrinogen POC ABG pH ABG pH POC ABG pCO2 POC ABG pO2 ABG pO2 ABG HCO3 ABG O2 Saturation ABG Base Excess ABG Hemoglobin Oxyhemoglobin Sodium Potassium Chloride Carbon Dioxide BUN Creatinine Glucose POC Glucose 118 H 127 H Uric Acid Calcium Phosphorus Magnesium Iron TIBC AST ALT Total Creatine Kinase CK-MB (CK-2) Troponin T NT-Pro-B Natriuret Pep Total Protein Albumin Triglycerides HDL Cholesterol Folate Urine WBC (Auto) Urine Creatinine Urine Total Protein Vancomycin Trough
[2019-07-03] MEDS: ACETAMINOPHEN 325 MG TAB PO PRN (21:22)
[2019-07-04] MEDS: INSULIN LISPRO 100 UNIT/ML SUB-Q SCH ×4 (01:49→19:26)
--- NOTE | 2019-07-04 08:18 | Progress Note ---
Subjective Date of service: 07/04/19 Principal diagnosis: anemia - LOw PLT Interval history: interval follow up note on patient.. still very limited movement and slow to espond but once fully aroused does very slowly follow simple commands,,, this is clear improvement I am unable to get any imaging studies to sssess the undeerlying problems therefore limited ability to project further potential but still better than previous jerky eye movements I will comment on Objective - Vital Sign Vital Signs - 12hr 07/03/19 07/03/19 07/03/19 20:41 20:45 21:01 Temperature Pulse Rate 100 H Pulse Rate [ From Monitor] Respiratory 35 H Rate Blood Pressure 129/57 O2 Sat by Pulse 97 96 Oximetry O2 Sat by Pulse 97 Oximetry [ Assessment] 07/03/19 07/03/19 07/03/19 22:01 22:51 23:01 Temperature Pulse Rate 102 H 88 87 Pulse Rate [ From Monitor] Respiratory 23 27 H 26 H Rate Blood Pressure 135/52 135/52 110/55 O2 Sat by Pulse 98 96 96 Oximetry O2 Sat by Pulse Oximetry [ Assessment] 07/03/19 07/04/19 07/04/19 23:21 00:00 01:01 Temperature 99.2 F Pulse Rate 92 H 96 H 92 H Pulse Rate [ 91 H From Monitor] Respiratory 28 H 25 H 26 H Rate Blood Pressure 110/55 116/65 119/62 O2 Sat by Pulse 98 98 94 Oximetry O2 Sat by Pulse Oximetry [ Assessment] 07/04/19 07/04/19 07/04/19 02:01 03:01 04:00 Temperature 98.2 F Pulse Rate 91 H 100 H 98 H Pulse Rate [ 91 H From Monitor] Respiratory 31 H 27 H 25 H Rate Blood Pressure 116/57 116/57 O2 Sat by Pulse 95 97 98 Oximetry O2 Sat by Pulse Oximetry [ Assessment] 07/04/19 07/04/19 07/04/19 04:01 05:01 06:01 Temperature Pulse Rate 98 H 96 H Pulse Rate [ From Monitor] Respiratory 18 26 H Rate Blood Pressure 76/51 95/70 95/70 O2 Sat by Pulse 98 99 99 Oximetry O2 Sat by Pulse Oximetry [ Assessment] - Laboratory Findings CBC and BMP: 07/01/19 07:58 07/01/19 07:58 Abnormal Lab Findings: Abnormal Labs 05/01/19 05/01/1905/01/19 17:50 19:26 22:36 WBC RBC Hgb Hct MCV MCH MCHC RDW Plt Count Lymph % (Auto) [place] % (Auto) Eos % (Auto) Lymph # [place] # Eos # Seg Neutrophils % Seg Neuts % (Manual) Lymphocytes % (Manual) Monocytes % (Manual) Eosinophils % (Manual) Nucleated RBC % Seg Neutrophils # Seg Neutrophils # Man Lymphocytes # (Manual) Monocytes # (Manual) Eosinophils # (Manual) PT INR APTT Fibrinogen POC ABG pH 7.272 L 7.331 L ABG pH POC ABG pCO2 52.8 H POC ABG pO2 ABG pO2 ABG HCO3 ABG O2 Saturation ABG Base Excess ABG Hemoglobin Oxyhemoglobin Sodium 136 L Potassium 6.5 H* Chloride 97.2 L Carbon Dioxide BUN 60 H Creatinine Glucose 113 H POC Glucose Uric Acid Calcium Phosphorus Magnesium 2.40 H Iron TIBC AST 139 H ALT 154 H Total Creatine Kinase CK-MB (CK-2) Troponin T NT-Pro-B Natriuret Pep Total Protein Albumin 3.8 L Triglycerides HDL Cholesterol Folate Urine WBC (Auto) Urine Creatinine Urine Total Protein Vancomycin Trough 05/01/19 05/01/19 05/01/19 Unknown Unknown Unknown WBC 16.1 H RBC Hgb Hct MCV MCH MCHC RDW 17.2 H Plt Count Lymph % (Auto) [place] % (Auto) 9.6 H Eos % (Auto) Lymph # [place] # 1.5 H Eos # Seg Neutrophils % 73.0 H Seg Neuts % (Manual) Lymphocytes % (Manual) Monocytes % (Manual) Eosinophils % (Manual) Nucleated RBC % Seg Neutrophils # 11.7 H Seg Neutrophils # Man Lymphocytes # (Manual) Monocytes # (Manual) Eosinophils # (Manual) PT 15.4 H INR 1.23 H APTT 22.7 L Fibrinogen POC ABG pH ABG pH POC ABG pCO2 POC ABG pO2 ABG pO2 ABG HCO3 ABG O2 Saturation ABG Base Excess ABG Hemoglobin Oxyhemoglobin Sodium Potassium Chloride Carbon Dioxide BUN Creatinine Glucose POC Glucose Uric Acid Calcium Phosphorus Magnesium Iron TIBC AST ALT Total Creatine Kinase CK-MB (CK-2) Troponin T NT-Pro-B Natriuret Pep 6831 H Total Protein Albumin Triglycerides HDL Cholesterol Folate Urine WBC (Auto) Urine Creatinine Urine Total Protein Vancomycin Trough 05/01/19 05/02/19 05/02/19 Unknown 00:06 00:06 WBC RBC Hgb Hct MCV MCH MCHC RDW Plt Count Lymph % (Auto) [place] % (Auto) Eos % (Auto) Lymph # [place] # Eos # Seg Neutrophils % Seg Neuts % (Manual) Lymphocytes % (Manual) Monocytes % (Manual) Eosinophils % (Manual) Nucleated RBC % Seg Neutrophils # Seg Neutrophils # Man Lymphocytes # (Manual) Monocytes # (Manual) Eosinophils # (Manual) PT INR APTT Fibrinogen POC ABG pH ABG pH POC ABG pCO2 POC ABG pO2 ABG pO2 ABG HCO3 ABG O2 Saturation ABG Base Excess ABG Hemoglobin Oxyhemoglobin Sodium Potassium Chloride Carbon Dioxide BUN Creatinine Glucose POC Glucose Uric Acid Calcium Phosphorus 4.90 H Magnesium Iron TIBC AST ALT Total Creatine Kinase 226 H CK-MB (CK-2) 5.7 H Troponin T 0.044 H NT-Pro-B Natriuret Pep Total Protein Albumin Triglycerides 182 H HDL Cholesterol 18 L Folate Urine WBC (Auto) Urine Creatinine Urine Total Protein Vancomycin Trough 05/02/19 05/02/19 05/02/19 02:08 04:40 04:41 WBC 17.6 H RBC Hgb Hct MCV MCH 27 L MCHC RDW 17.4 H Plt Count Lymph % (Auto) 10.2 L [place] % (Auto) 11.0 H Eos % (Auto) Lymph # [place] # 1.9 H Eos # Seg Neutrophils % 78.0 H Seg Neuts % (Manual) Lymphocytes % (Manual) Monocytes % (Manual) Eosinophils % (Manual) Nucleated RBC % Seg Neutrophils # 13.8 H Seg Neutrophils # Man Lymphocytes # (Manual) Monocytes # (Manual) Eosinophils # (Manual) PT INR APTT Fibrinogen POC ABG pH ABG pH POC ABG pCO2 46.8 H POC ABG pO2 63 L ABG pO2 ABG HCO3 ABG O2 Saturation ABG Base Excess ABG Hemoglobin Oxyhemoglobin Sodium Potassium Chloride 96.3 L Carbon Dioxide BUN 63 H Creatinine 1.7 H Glucose POC Glucose Uric Acid Calcium Phosphorus Magnesium Iron TIBC AST ALT Total Creatine Kinase CK-MB (CK-2) Troponin T NT-Pro-B Natriuret Pep Total Protein Albumin Triglycerides HDL Cholesterol Folate Urine WBC (Auto) Urine Creatinine Urine Total Protein Vancomycin Trough 05/02/19 05/02/19 05/02/19 04:41 04:41 16:05 WBC RBC Hgb Hct MCV MCH MCHC RDW Plt Count Lymph % (Auto) [place] % (Auto) Eos % (Auto) Lymph # [place] # Eos # Seg Neutrophils % Seg Neuts % (Manual) Lymphocytes % (Manual) Monocytes % (Manual) Eosinophils % (Manual) Nucleated RBC % Seg Neutrophils # Seg Neutrophils # Man Lymphocytes # (Manual) Monocytes # (Manual) Eosinophils # (Manual) PT INR APTT Fibrinogen POC ABG pH ABG pH POC ABG pCO2 POC ABG pO2 ABG pO2 66.6 L ABG HCO3 31.9 H ABG O2 Saturation 92.5 L ABG Base Excess 5.8 H ABG Hemoglobin 13.3 L Oxyhemoglobin 90.6 L Sodium Potassium Chloride 97.2 L Carbon Dioxide BUN 61 H Creatinine 1.8 H Glucose POC Glucose Uric Acid Calcium Phosphorus Magnesium Iron TIBC AST ALT Total Creatine Kinase CK-MB (CK-2) 5.2 H Troponin T 0.067 H D NT-Pro-B Natriuret Pep Total Protein Albumin Triglycerides HDL Cholesterol Folate Urine WBC (Auto) Urine Creatinine Urine Total Protein Vancomycin Trough 05/02/19 05/03/19 05/03/19 20:39 04:35 05:05 WBC 11.8 H RBC Hgb Hct MCV MCH 27 L MCHC 31 L RDW 17.2 H Plt Count Lymph % (Auto) [place] % (Auto) Eos % (Auto) Lymph # [place] # Eos # Seg Neutrophils % Seg Neuts % (Manual) Lymphocytes % (Manual) Monocytes % (Manual) Eosinophils % (Manual) Nucleated RBC % Seg Neutrophils # Seg Neutrophils # Man Lymphocytes # (Manual) Monocytes # (Manual) Eosinophils # (Manual) PT INR APTT Fibrinogen POC ABG pH ABG pH POC ABG pCO2 53.6 H 54.0 H POC ABG pO2 55 L 63 L ABG pO2 ABG HCO3 ABG O2 Saturation ABG Base Excess ABG Hemoglobin Oxyhemoglobin Sodium Potassium Chloride Carbon Dioxide BUN Creatinine Glucose POC Glucose Uric Acid Calcium Phosphorus Magnesium Iron TIBC AST ALT Total Creatine Kinase CK-MB (CK-2) Troponin T NT-Pro-B Natriuret Pep Total Protein Albumin Triglycerides HDL Cholesterol Folate Urine WBC (Auto) Urine Creatinine Urine Total Protein Vancomycin Trough 05/03/19 05/03/19 05/03/19 05:05 10:55 16:48 WBC RBC Hgb Hct MCV MCH MCHC RDW Plt Count Lymph % (Auto) [place] % (Auto) Eos % (Auto) Lymph # [place] # Eos # Seg Neutrophils % Seg Neuts % (Manual) Lymphocytes % (Manual) Monocytes % (Manual) Eosinophils % (Manual) Nucleated RBC % Seg Neutrophils # Seg Neutrophils # Man Lymphocytes # (Manual) Monocytes # (Manual) Eosinophils # (Manual) PT INR APTT Fibrinogen POC ABG pH 7.604 H ABG pH POC ABG pCO2 POC ABG pO2 58 L ABG pO2 ABG HCO3 ABG O2 Saturation ABG Base Excess ABG Hemoglobin Oxyhemoglobin Sodium Potassium Chloride Carbon Dioxide BUN 52 H Creatinine 1.9 H Glucose 103 H POC Glucose Uric Acid Calcium Phosphorus Magnesium Iron TIBC AST ALT Total Creatine Kinase CK-MB (CK-2) Troponin T NT-Pro-B Natriuret Pep Total Protein Albumin Triglycerides HDL Cholesterol Folate Urine WBC (Auto) 33.0 H Urine Creatinine Urine Total Protein Vancomycin Trough 05/04/19 05/04/19 05/04/19 04:49 06:50 06:50 WBC 16.0 H RBC Hgb Hct MCV MCH 27 L MCHC 31 L RDW 17.8 H Plt Count Lymph % (Auto) [place] % (Auto) Eos % (Auto) Lymph # [place] # Eos # Seg Neutrophils % Seg Neuts % (Manual) Lymphocytes % (Manual) Monocytes % (Manual) Eosinophils % (Manual) Nucleated RBC % Seg Neutrophils # Seg Neutrophils # Man Lymphocytes # (Manual) Monocytes # (Manual) Eosinophils # (Manual) PT INR APTT Fibrinogen POC ABG pH 7.273 L ABG pH POC ABG pCO2 POC ABG pO2 ABG pO2 ABG HCO3 ABG O2 Saturation ABG Base Excess ABG Hemoglobin Oxyhemoglobin Sodium 148 H Potassium 5.5 H Chloride Carbon Dioxide BUN 53 H Creatinine 3.3 H D Glucose 106 H POC Glucose Uric Acid Calcium 8.3 L Phosphorus Magnesium Iron TIBC AST ALT Total Creatine Kinase CK-MB (CK-2) Troponin T NT-Pro-B Natriuret Pep Total Protein Albumin Triglycerides HDL Cholesterol Folate Urine WBC (Auto) Urine Creatinine Urine Total Protein Vancomycin Trough 05/05/19 05/05/19 05/05/19 00:05 04:30 05:00 WBC RBC Hgb Hct MCV MCH MCHC RDW Plt Count Lymph % (Auto) [place] % (Auto) Eos % (Auto) Lymph # [place] # Eos # Seg Neutrophils % Seg Neuts % (Manual) Lymphocytes % (Manual) Monocytes % (Manual) Eosinophils % (Manual) Nucleated RBC % Seg Neutrophils # Seg Neutrophils # Man Lymphocytes # (Manual) Monocytes # (Manual) Eosinophils # (Manual) PT INR APTT Fibrinogen POC ABG pH 7.225 L ABG pH POC ABG pCO2 > 70 H POC ABG pO2 ABG pO2 ABG HCO3 ABG O2 Saturation ABG Base Excess ABG Hemoglobin Oxyhemoglobin Sodium 151 H Potassium 5.1 H Chloride Carbon Dioxide BUN 64 H Creatinine 3.5 H Glucose 117 H POC Glucose 141 H Uric Acid Calcium 7.5 L Phosphorus Magnesium Iron TIBC AST 93 H ALT 65 H Total Creatine Kinase CK-MB (CK-2) Troponin T NT-Pro-B Natriuret Pep Total Protein Albumin 2.9 L Triglycerides HDL Cholesterol Folate Urine WBC (Auto) Urine Creatinine Urine Total Protein Vancomycin Trough 05/05/19 05/05/19 05/05/19 05:00 12:02 17:46 WBC 12.0 H RBC Hgb 11.3 L Hct MCV MCH 27 L MCHC 30 L RDW 18.4 H Plt Count Lymph % (Auto) 7.9 L [place] % (Auto) 10.2 H Eos % (Auto) Lymph # 1.0 L [place] # 1.2 H Eos # Seg Neutrophils % 80.8 H Seg Neuts % (Manual) Lymphocytes % (Manual) Monocytes % (Manual) Eosinophils % (Manual) Nucleated RBC % Seg Neutrophils # 9.7 H Seg Neutrophils # Man Lymphocytes # (Manual) Monocytes # (Manual) Eosinophils # (Manual) PT INR APTT Fibrinogen POC ABG pH ABG pH POC ABG pCO2 POC ABG pO2 ABG pO2 ABG HCO3 ABG O2 Saturation ABG Base Excess ABG Hemoglobin Oxyhemoglobin Sodium Potassium Chloride Carbon Dioxide BUN Creatinine Glucose POC Glucose 125 H 112 H Uric Acid Calcium Phosphorus Magnesium Iron TIBC AST ALT Total Creatine Kinase CK-MB (CK-2) Troponin T NT-Pro-B Natriuret Pep Total Protein Albumin Triglycerides HDL Cholesterol Folate Urine WBC (Auto) Urine Creatinine Urine Total Protein Vancomycin Trough 05/05/19 05/06/19 05/06/19 23:42 03:58 04:45 WBC 11.4 H RBC Hgb 10.7 L Hct 34.2 L MCV MCH 27 L MCHC 31 L RDW 16.9 H Plt Count Lymph % (Auto) [place] % (Auto) Eos % (Auto) Lymph # [place] # Eos # Seg Neutrophils % Seg Neuts % (Manual) Lymphocytes % (Manual) Monocytes % (Manual) Eosinophils % (Manual) Nucleated RBC % Seg Neutrophils # Seg Neutrophils # Man Lymphocytes # (Manual) Monocytes # (Manual) Eosinophils # (Manual) PT INR APTT Fibrinogen POC ABG pH ABG pH POC ABG pCO2 62.4 H POC ABG pO2 111 H ABG pO2 ABG HCO3 ABG O2 Saturation ABG Base Excess ABG Hemoglobin Oxyhemoglobin Sodium Potassium Chloride Carbon Dioxide BUN Creatinine Glucose POC Glucose 128 H Uric Acid Calcium Phosphorus Magnesium Iron TIBC AST ALT Total Creatine Kinase CK-MB (CK-2) Troponin T NT-Pro-B Natriuret Pep Total Protein Albumin Triglycerides HDL Cholesterol Folate Urine WBC (Auto) Urine Creatinine Urine Total Protein Vancomycin Trough 05/06/19 05/06/19 05/06/19 04:45 05:33 12:30 WBC RBC Hgb Hct MCV MCH MCHC RDW Plt Count Lymph % (Auto) [place] % (Auto) Eos % (Auto) Lymph # [place] # Eos # Seg Neutrophils % Seg Neuts % (Manual) Lymphocytes % (Manual) Monocytes % (Manual) Eosinophils % (Manual) Nucleated RBC % Seg Neutrophils # Seg Neutrophils # Man Lymphocytes # (Manual) Monocytes # (Manual) Eosinophils # (Manual) PT INR APTT Fibrinogen POC ABG pH ABG pH POC ABG pCO2 POC ABG pO2 ABG pO2 ABG HCO3 ABG O2 Saturation ABG Base Excess ABG Hemoglobin Oxyhemoglobin Sodium 149 H Potassium Chloride Carbon Dioxide 31 H BUN 67 H Creatinine 3.2 H Glucose 125 H POC Glucose 117 H 116 H Uric Acid Calcium 7.5 L Phosphorus Magnesium Iron TIBC AST ALT Total Creatine Kinase CK-MB (CK-2) Troponin T NT-Pro-B Natriuret Pep Total Protein Albumin Triglycerides HDL Cholesterol Folate Urine WBC (Auto) Urine Creatinine Urine Total Protein Vancomycin Trough 05/06/19 05/06/19 05/07/19 18:34 23:16 05:22 WBC RBC Hgb Hct MCV MCH MCHC RDW Plt Count Lymph % (Auto) [place] % (Auto) Eos % (Auto) Lymph # [place] # Eos # Seg Neutrophils % Seg Neuts % (Manual) Lymphocytes % (Manual) Monocytes % (Manual) Eosinophils % (Manual) Nucleated RBC % Seg Neutrophils # Seg Neutrophils # Man Lymphocytes # (Manual) Monocytes # (Manual) Eosinophils # (Manual) PT INR APTT Fibrinogen POC ABG pH ABG pH POC ABG pCO2 POC ABG pO2 ABG pO2 ABG HCO3 ABG O2 Saturation ABG Base Excess ABG Hemoglobin Oxyhemoglobin Sodium Potassium Chloride Carbon Dioxide BUN Creatinine Glucose POC Glucose 128 H 143 H 166 H Uric Acid Calcium Phosphorus Magnesium Iron TIBC AST ALT Total Creatine Kinase CK-MB (CK-2) Troponin T NT-Pro-B Natriuret Pep Total Protein Albumin Triglycerides HDL Cholesterol Folate Urine WBC (Auto) Urine Creatinine Urine Total Protein Vancomycin Trough 05/07/19 05/07/19 05/07/19 06:33 07:03 09:35 WBC RBC Hgb Hct MCV MCH MCHC RDW Plt Count Lymph % (Auto) [place] % (Auto) Eos % (Auto) Lymph # [place] # Eos # Seg Neutrophils % Seg Neuts % (Manual) Lymphocytes % (Manual) Monocytes % (Manual) Eosinophils % (Manual) Nucleated RBC % Seg Neutrophils # Seg Neutrophils # Man Lymphocytes # (Manual) Monocytes # (Manual) Eosinophils # (Manual) PT INR APTT Fibrinogen POC ABG pH 7.263 L 7.288 L ABG pH POC ABG pCO2 POC ABG pO2 51 L 56 L ABG pO2 ABG HCO3 ABG O2 Saturation ABG Base Excess ABG Hemoglobin Oxyhemoglobin Sodium Potassium Chloride Carbon Dioxide BUN 76 H Creatinine 3.2 H Glucose 147 H POC Glucose Uric Acid Calcium 7.9 L Phosphorus Magnesium Iron TIBC AST ALT Total Creatine Kinase CK-MB (CK-2) Troponin T NT-Pro-B Natriuret Pep Total Protein Albumin Triglycerides HDL Cholesterol Folate Urine WBC (Auto) Urine Creatinine Urine Total Protein Vancomycin Trough 05/07/19 05/07/19 05/07/19 09:35 12:17 13:45 WBC 13.4 H RBC Hgb 11.6 L Hct MCV MCH 27 L MCHC 31 L RDW 17.5 H Plt Count Lymph % (Auto) [place] % (Auto) Eos % (Auto) Lymph # [place] # Eos # Seg Neutrophils % Seg Neuts % (Manual) Lymphocytes % (Manual) Monocytes % (Manual) Eosinophils % (Manual) Nucleated RBC % Seg Neutrophils # Seg Neutrophils # Man Lymphocytes # (Manual) Monocytes # (Manual) Eosinophils # (Manual) PT INR APTT Fibrinogen POC ABG pH ABG pH POC ABG pCO2 POC ABG pO2 ABG pO2 ABG HCO3 ABG O2 Saturation ABG Base Excess ABG Hemoglobin Oxyhemoglobin Sodium Potassium Chloride Carbon Dioxide BUN Creatinine Glucose POC Glucose 130 H Uric Acid 18.0 H Calcium Phosphorus Magnesium Iron TIBC AST ALT Total Creatine Kinase CK-MB (CK-2) Troponin T NT-Pro-B Natriuret Pep Total Protein Albumin Triglycerides HDL Cholesterol Folate Urine WBC (Auto) Urine Creatinine Urine Total Protein Vancomycin Trough 05/07/19 05/07/19 05/08/19 17:39 22:40 05:06 WBC RBC Hgb Hct MCV MCH MCHC RDW Plt Count Lymph % (Auto) [place] % (Auto) Eos % (Auto) Lymph # [place] # Eos # Seg Neutrophils % Seg Neuts % (Manual) Lymphocytes % (Manual) Monocytes % (Manual) Eosinophils % (Manual) Nucleated RBC % Seg Neutrophils # Seg Neutrophils # Man Lymphocytes # (Manual) Monocytes # (Manual) Eosinophils # (Manual) PT INR APTT Fibrinogen POC ABG pH ABG pH POC ABG pCO2 POC ABG pO2 ABG pO2 ABG HCO3 ABG O2 Saturation ABG Base Excess ABG Hemoglobin Oxyhemoglobin Sodium Potassium Chloride Carbon Dioxide BUN Creatinine Glucose POC Glucose 116 H 148 H Uric Acid Calcium Phosphorus Magnesium Iron TIBC AST ALT Total Creatine Kinase CK-MB (CK-2) Troponin T NT-Pro-B Natriuret Pep Total Protein Albumin Triglycerides HDL Cholesterol Folate Urine WBC (Auto) Urine Creatinine 292.8 H Urine Total Protein 269 H Vancomycin Trough 05/08/19 05/08/19 05/08/19 05:32 11:28 13:48 WBC RBC Hgb Hct MCV MCH MCHC RDW Plt Count Lymph % (Auto) [place] % (Auto) Eos % (Auto) Lymph # [place] # Eos # Seg Neutrophils % Seg Neuts % (Manual) Lymphocytes % (Manual) Monocytes % (Manual) Eosinophils % (Manual) Nucleated RBC % Seg Neutrophils # Seg Neutrophils # Man Lymphocytes # (Manual) Monocytes # (Manual) Eosinophils # (Manual) PT INR APTT Fibrinogen POC ABG pH ABG pH POC ABG pCO2 45.4 H POC ABG pO2 64 L ABG pO2 ABG HCO3 ABG O2 Saturation ABG Base Excess ABG Hemoglobin Oxyhemoglobin Sodium Potassium Chloride Carbon Dioxide BUN 73 H Creatinine 2.7 H Glucose 127 H POC Glucose 107 H Uric Acid Calcium 7.6 L Phosphorus Magnesium Iron TIBC AST ALT Total Creatine Kinase CK-MB (CK-2) Troponin T NT-Pro-B Natriuret Pep Total Protein Albumin Triglycerides HDL Cholesterol Folate Urine WBC (Auto) Urine Creatinine Urine Total Protein Vancomycin Trough 05/08/19 05/09/19 05/09/19 17:48 04:50 04:53 WBC RBC 3.07 L Hgb 8.5 L D Hct 29.3 L D MCV 96 H MCH MCHC 29 L RDW 18.1 H Plt Count Lymph % (Auto) [place] % (Auto) Eos % (Auto) Lymph # [place] # Eos # Seg Neutrophils % Seg Neuts % (Manual) Lymphocytes % (Manual) Monocytes % (Manual) Eosinophils % (Manual) Nucleated RBC % Seg Neutrophils # Seg Neutrophils # Man Lymphocytes # (Manual) Monocytes # (Manual) Eosinophils # (Manual) PT INR APTT Fibrinogen POC ABG pH 7.316 L ABG pH POC ABG pCO2 66.0 H POC ABG pO2 69 L ABG pO2 ABG HCO3 ABG O2 Saturation ABG Base Excess ABG Hemoglobin Oxyhemoglobin Sodium Potassium Chloride Carbon Dioxide BUN Creatinine Glucose POC Glucose 155 H Uric Acid Calcium Phosphorus Magnesium Iron TIBC AST ALT Total Creatine Kinase CK-MB (CK-2) Troponin T NT-Pro-B Natriuret Pep Total Protein Albumin Triglycerides HDL Cholesterol Folate Urine WBC (Auto) Urine Creatinine Urine Total Protein Vancomycin Trough 05/09/19 05/09/19 05/09/19 05:46 07:24 12:10 WBC RBC Hgb Hct MCV MCH MCHC RDW Plt Count Lymph % (Auto) [place] % (Auto) Eos % (Auto) Lymph # [place] # Eos # Seg Neutrophils % Seg Neuts % (Manual) Lymphocytes % (Manual) Monocytes % (Manual) Eosinophils % (Manual) Nucleated RBC % Seg Neutrophils # Seg Neutrophils # Man Lymphocytes # (Manual) Monocytes # (Manual) Eosinophils # (Manual) PT INR APTT Fibrinogen POC ABG pH ABG pH POC ABG pCO2 POC ABG pO2 ABG pO2 ABG HCO3 ABG O2 Saturation ABG Base Excess ABG Hemoglobin Oxyhemoglobin Sodium Potassium Chloride Carbon Dioxide BUN 73 H Creatinine 2.4 H Glucose 153 H POC Glucose 123 H 148 H Uric Acid Calcium 8.2 L Phosphorus Magnesium Iron TIBC AST 45 H ALT Total Creatine Kinase CK-MB (CK-2) Troponin T NT-Pro-B Natriuret Pep Total Protein 6.0 L Albumin 1.9 L Triglycerides HDL Cholesterol Folate Urine WBC (Auto) Urine Creatinine Urine Total Protein Vancomycin Trough 05/09/19 05/09/19 05/10/19 18:23 23:26 04:52 WBC RBC Hgb Hct MCV MCH MCHC RDW Plt Count Lymph % (Auto) [place] % (Auto) Eos % (Auto) Lymph # [place] # Eos # Seg Neutrophils % Seg Neuts % (Manual) Lymphocytes % (Manual) Monocytes % (Manual) Eosinophils % (Manual) Nucleated RBC % Seg Neutrophils # Seg Neutrophils # Man Lymphocytes # (Manual) Monocytes # (Manual) Eosinophils # (Manual) PT INR APTT Fibrinogen POC ABG pH 7.305 L ABG pH POC ABG pCO2 62.6 H POC ABG pO2 ABG pO2 ABG HCO3 ABG O2 Saturation ABG Base Excess ABG Hemoglobin Oxyhemoglobin Sodium Potassium Chloride Carbon Dioxide BUN Creatinine Glucose POC Glucose 147 H 121 H Uric Acid Calcium Phosphorus Magnesium Iron TIBC AST ALT Total Creatine Kinase CK-MB (CK-2) Troponin T NT-Pro-B Natriuret Pep Total Protein Albumin Triglycerides HDL Cholesterol Folate Urine WBC (Auto) Urine Creatinine Urine Total Protein Vancomycin Trough 05/10/19 05/10/19 05/10/19 05:00 05:00 05:50 WBC RBC Hgb 10.3 L Hct 33.7 L MCV MCH 27 L MCHC 31 L RDW 17.0 H Plt Count Lymph % (Auto) [place] % (Auto) Eos % (Auto) Lymph # [place] # Eos # Seg Neutrophils % Seg Neuts % (Manual) Lymphocytes % (Manual) Monocytes % (Manual) Eosinophils % (Manual) Nucleated RBC % Seg Neutrophils # Seg Neutrophils # Man Lymphocytes # (Manual) Monocytes # (Manual) Eosinophils # (Manual) PT INR APTT Fibrinogen POC ABG pH ABG pH POC ABG pCO2 POC ABG pO2 ABG pO2 ABG HCO3 ABG O2 Saturation ABG Base Excess ABG Hemoglobin Oxyhemoglobin Sodium 147 H Potassium Chloride Carbon Dioxide BUN 70 H Creatinine 2.6 H Glucose 155 H POC Glucose 158 H Uric Acid Calcium 8.2 L Phosphorus Magnesium Iron TIBC AST ALT Total Creatine Kinase CK-MB (CK-2) Troponin T NT-Pro-B Natriuret Pep Total Protein 6.1 L Albumin 2.5 L Triglycerides HDL Cholesterol Folate Urine WBC (Auto) Urine Creatinine Urine Total Protein Vancomycin Trough 05/10/19 05/11/19 05/11/19 13:14 07:26 11:40 WBC RBC Hgb Hct MCV MCH MCHC RDW Plt Count Lymph % (Auto) [place] % (Auto) Eos % (Auto) Lymph # [place] # Eos # Seg Neutrophils % Seg Neuts % (Manual) Lymphocytes % (Manual) Monocytes % (Manual) Eosinophils % (Manual) Nucleated RBC % Seg Neutrophils # Seg Neutrophils # Man Lymphocytes # (Manual) Monocytes # (Manual) Eosinophils # (Manual) PT INR APTT Fibrinogen POC ABG pH ABG pH POC ABG pCO2 48.0 H POC ABG pO2 58 L ABG pO2 ABG HCO3 ABG O2 Saturation ABG Base Excess ABG Hemoglobin Oxyhemoglobin Sodium 147 H Potassium Chloride 107.2 H Carbon Dioxide BUN 67 H Creatinine 2.6 H Glucose 121 H POC Glucose 159 H Uric Acid Calcium Phosphorus Magnesium Iron TIBC AST ALT Total Creatine Kinase CK-MB (CK-2) Troponin T NT-Pro-B Natriuret Pep Total Protein Albumin Triglycerides HDL Cholesterol Folate Urine WBC (Auto) Urine Creatinine Urine Total Protein Vancomycin Trough 05/11/19 05/11/19 05/12/19 18:13 23:46 04:40 WBC RBC Hgb Hct MCV MCH MCHC RDW Plt Count Lymph % (Auto) [place] % (Auto) Eos % (Auto) Lymph # [place] # Eos # Seg Neutrophils % Seg Neuts % (Manual) Lymphocytes % (Manual) Monocytes % (Manual) Eosinophils % (Manual) Nucleated RBC % Seg Neutrophils # Seg Neutrophils # Man Lymphocytes # (Manual) Monocytes # (Manual) Eosinophils # (Manual) PT INR APTT Fibrinogen POC ABG pH ABG pH 7.264 L POC ABG pCO2 POC ABG pO2 ABG pO2 66.8 L ABG HCO3 31.0 H ABG O2 Saturation 92.0 L ABG Base Excess ABG Hemoglobin 10.3 L Oxyhemoglobin 90.1 L Sodium Potassium Chloride Carbon Dioxide BUN Creatinine Glucose POC Glucose 120 H 121 H Uric Acid Calcium Phosphorus Magnesium Iron TIBC AST ALT Total Creatine Kinase CK-MB (CK-2) Troponin T NT-Pro-B Natriuret Pep Total Protein Albumin Triglycerides HDL Cholesterol Folate Urine WBC (Auto) Urine Creatinine Urine Total Protein Vancomycin Trough 05/12/19 05/12/19 05/12/19 04:45 04:45 11:14 WBC RBC Hgb 10.2 L Hct 32.4 L MCV MCH MCHC 31 L RDW 17.2 H Plt Count Lymph % (Auto) [place] % (Auto) Eos % (Auto) Lymph # [place] # Eos # Seg Neutrophils % Seg Neuts % (Manual) Lymphocytes % (Manual) Monocytes % (Manual) Eosinophils % (Manual) Nucleated RBC % Seg Neutrophils # Seg Neutrophils # Man Lymphocytes # (Manual) Monocytes # (Manual) Eosinophils # (Manual) PT INR APTT Fibrinogen POC ABG pH 7.284 L ABG pH POC ABG pCO2 67.8 H POC ABG pO2 ABG pO2 ABG HCO3 ABG O2 Saturation ABG Base Excess ABG Hemoglobin Oxyhemoglobin Sodium Potassium Chloride Carbon Dioxide BUN 63 H Creatinine 2.4 H Glucose 110 H POC Glucose Uric Acid Calcium Phosphorus Magnesium Iron TIBC AST ALT Total Creatine Kinase CK-MB (CK-2) Troponin T NT-Pro-B Natriuret Pep Total Protein Albumin Triglycerides HDL Cholesterol Folate Urine WBC (Auto) Urine Creatinine Urine Total Protein Vancomycin Trough 05/12/19 05/12/19 05/13/19 11:44 23:11 04:30 WBC RBC Hgb Hct MCV MCH MCHC RDW Plt Count Lymph % (Auto) [place] % (Auto) Eos % (Auto) Lymph # [place] # Eos # Seg Neutrophils % Seg Neuts % (Manual) Lymphocytes % (Manual) Monocytes % (Manual) Eosinophils % (Manual) Nucleated RBC % Seg Neutrophils # Seg Neutrophils # Man Lymphocytes # (Manual) Monocytes # (Manual) Eosinophils # (Manual) PT INR APTT Fibrinogen POC ABG pH ABG pH 7.288 L POC ABG pCO2 POC ABG pO2 ABG pO2 109.7 H ABG HCO3 30.9 H ABG O2 Saturation ABG Base Excess 3.2 H ABG Hemoglobin 9.6 L Oxyhemoglobin Sodium Potassium Chloride Carbon Dioxide BUN Creatinine Glucose POC Glucose 126 H 147 H Uric Acid Calcium Phosphorus Magnesium Iron TIBC AST ALT Total Creatine Kinase CK-MB (CK-2) Troponin T NT-Pro-B Natriuret Pep Total Protein Albumin Triglycerides HDL Cholesterol Folate Urine WBC (Auto) Urine Creatinine Urine Total Protein Vancomycin Trough 05/13/19 05/13/19 05/14/19 06:27 11:58 04:00 WBC RBC 3.16 L Hgb 9.3 L Hct 27.9 L MCV MCH MCHC RDW 17.1 H Plt Count Lymph % (Auto) [place] % (Auto) Eos % (Auto) Lymph # [place] # Eos # Seg Neutrophils % Seg Neuts % (Manual) Lymphocytes % (Manual) Monocytes % (Manual) Eosinophils % (Manual) Nucleated RBC % Seg Neutrophils # Seg Neutrophils # Man Lymphocytes # (Manual) Monocytes # (Manual) Eosinophils # (Manual) PT INR APTT Fibrinogen POC ABG pH ABG pH POC ABG pCO2 POC ABG pO2 ABG pO2 ABG HCO3 ABG O2 Saturation ABG Base Excess ABG Hemoglobin Oxyhemoglobin Sodium Potassium Chloride Carbon Dioxide BUN Creatinine Glucose POC Glucose 113 H 130 H Uric Acid Calcium Phosphorus Magnesium Iron TIBC AST ALT Total Creatine Kinase CK-MB (CK-2) Troponin T NT-Pro-B Natriuret Pep Total Protein Albumin Triglycerides HDL Cholesterol Folate Urine WBC (Auto) Urine Creatinine Urine Total Protein Vancomycin Trough 05/14/19 05/14/19 05/14/19 04:00 04:34 05:32 WBC RBC Hgb Hct MCV MCH MCHC RDW Plt Count Lymph % (Auto) [place] % (Auto) Eos % (Auto) Lymph # [place] # Eos # Seg Neutrophils % Seg Neuts % (Manual) Lymphocytes % (Manual) Monocytes % (Manual) Eosinophils % (Manual) Nucleated RBC % Seg Neutrophils # Seg Neutrophils # Man Lymphocytes # (Manual) Monocytes # (Manual) Eosinophils # (Manual) PT INR APTT Fibrinogen POC ABG pH 7.328 L ABG pH POC ABG pCO2 61.7 H POC ABG pO2 ABG pO2 ABG HCO3 ABG O2 Saturation ABG Base Excess ABG Hemoglobin Oxyhemoglobin Sodium 135 L D Potassium Chloride Carbon Dioxide BUN 57 H Creatinine 2.2 H Glucose 115 H POC Glucose 115 H Uric Acid Calcium 8.1 L Phosphorus Magnesium Iron TIBC AST ALT Total Creatine Kinase CK-MB (CK-2) Troponin T NT-Pro-B Natriuret Pep Total Protein Albumin Triglycerides HDL Cholesterol Folate Urine WBC (Auto) Urine Creatinine Urine Total Protein Vancomycin Trough 05/14/19 05/15/19 05/15/19 12:11 05:10 05:24 WBC RBC Hgb Hct MCV MCH MCHC RDW Plt Count Lymph % (Auto) [place] % (Auto) Eos % (Auto) Lymph # [place] # Eos # Seg Neutrophils % Seg Neuts % (Manual) Lymphocytes % (Manual) Monocytes % (Manual) Eosinophils % (Manual) Nucleated RBC % Seg Neutrophils # Seg Neutrophils # Man Lymphocytes # (Manual) Monocytes # (Manual) Eosinophils # (Manual) PT INR APTT Fibrinogen POC ABG pH ABG pH 7.342 L POC ABG pCO2 POC ABG pO2 ABG pO2 79.1 L ABG HCO3 28.2 H ABG O2 Saturation ABG Base Excess ABG Hemoglobin 7.0 L Oxyhemoglobin 94.4 L Sodium Potassium Chloride Carbon Dioxide BUN Creatinine Glucose POC Glucose 110 H 116 H Uric Acid Calcium Phosphorus Magnesium Iron TIBC AST ALT Total Creatine Kinase CK-MB (CK-2) Troponin T NT-Pro-B Natriuret Pep Total Protein Albumin Triglycerides HDL Cholesterol Folate Urine WBC (Auto) Urine Creatinine Urine Total Protein Vancomycin Trough 05/15/19 05/15/19 05/16/19 09:00 18:12 04:50 WBC RBC Hgb Hct MCV MCH MCHC RDW Plt Count Lymph % (Auto) [place] % (Auto) Eos % (Auto) Lymph # [place] # Eos # Seg Neutrophils % Seg Neuts % (Manual) Lymphocytes % (Manual) Monocytes % (Manual) Eosinophils % (Manual) Nucleated RBC % Seg Neutrophils # Seg Neutrophils # Man Lymphocytes # (Manual) Monocytes # (Manual) Eosinophils # (Manual) PT INR APTT Fibrinogen POC ABG pH ABG pH 7.250 L POC ABG pCO2 POC ABG pO2 ABG pO2 76.4 L ABG HCO3 ABG O2 Saturation 94.6 L ABG Base Excess -3.1 L ABG Hemoglobin 9.7 L Oxyhemoglobin 92.4 L Sodium Potassium Chloride Carbon Dioxide BUN Creatinine Glucose POC Glucose 110 H Uric Acid Calcium Phosphorus Magnesium Iron TIBC AST ALT Total Creatine Kinase CK-MB (CK-2) Troponin T NT-Pro-B Natriuret Pep Total Protein Albumin Triglycerides HDL Cholesterol Folate Urine WBC (Auto) Urine Creatinine Urine Total Protein Vancomycin Trough 20.5 H 05/16/19 05/16/19 05/17/19 05:50 05:50 04:20 WBC RBC 3.36 L 3.44 L Hgb 9.4 L 9.3 L Hct 29.1 L 29.7 L MCV MCH 27 L MCHC 31 L RDW 17.6 H 17.6 H Plt Count Lymph % (Auto) [place] % (Auto) Eos % (Auto) Lymph # [place] # Eos # Seg Neutrophils % Seg Neuts % (Manual) 77.0 H Lymphocytes % (Manual) 5.0 L Monocytes % (Manual) Eosinophils % (Manual) 10.0 H Nucleated RBC % Seg Neutrophils # Seg Neutrophils # Man Lymphocytes # (Manual) 0.5 L Monocytes # (Manual) Eosinophils # (Manual) 0.9 H PT INR APTT Fibrinogen POC ABG pH ABG pH POC ABG pCO2 POC ABG pO2 ABG pO2 ABG HCO3 ABG O2 Saturation ABG Base Excess ABG Hemoglobin Oxyhemoglobin Sodium Potassium Chloride Carbon Dioxide BUN 83 H Creatinine 4.4 H D Glucose 118 H POC Glucose Uric Acid Calcium Phosphorus Magnesium Iron TIBC AST ALT Total Creatine Kinase CK-MB (CK-2) Troponin T NT-Pro-B Natriuret Pep Total Protein Albumin Triglycerides HDL Cholesterol Folate Urine WBC (Auto) Urine Creatinine Urine Total Protein Vancomycin Trough 05/17/19 05/17/19 05/18/19 04:30 Unknown 01:50 WBC RBC 3.49 L Hgb 9.4 L Hct 30.0 L MCV MCH 27 L MCHC 31 L RDW 17.8 H Plt Count Lymph % (Auto) 7.9 L [place] % (Auto) 15.4 H Eos % (Auto) 6.3 H Lymph # 0.7 L [place] # 1.4 H Eos # 0.6 H Seg Neutrophils % 70.2 H Seg Neuts % (Manual) Lymphocytes % (Manual) Monocytes % (Manual) Eosinophils % (Manual) Nucleated RBC % Seg Neutrophils # Seg Neutrophils # Man Lymphocytes # (Manual) Monocytes # (Manual) Eosinophils # (Manual) PT INR APTT Fibrinogen POC ABG pH ABG pH 7.272 L POC ABG pCO2 POC ABG pO2 ABG pO2 75.7 L ABG HCO3 ABG O2 Saturation 93.8 L ABG Base Excess -3.0 L ABG Hemoglobin 7.8 L Oxyhemoglobin 91.6 L Sodium Potassium 5.2 H Chloride Carbon Dioxide BUN 96 H Creatinine 5.7 H Glucose 112 H POC Glucose Uric Acid Calcium Phosphorus Magnesium Iron TIBC AST ALT Total Creatine Kinase CK-MB (CK-2) Troponin T NT-Pro-B Natriuret Pep Total Protein Albumin Triglycerides 173 H HDL Cholesterol Folate Urine WBC (Auto) Urine Creatinine Urine Total Protein Vancomycin Trough 05/18/19 05/18/19 05/18/19 01:50 04:41 05:24 WBC RBC Hgb Hct MCV MCH MCHC RDW Plt Count Lymph % (Auto) [place] % (Auto) Eos % (Auto) Lymph # [place] # Eos # Seg Neutrophils % Seg Neuts % (Manual) Lymphocytes % (Manual) Monocytes % (Manual) Eosinophils % (Manual) Nucleated RBC % Seg Neutrophils # Seg Neutrophils # Man Lymphocytes # (Manual) Monocytes # (Manual) Eosinophils # (Manual) PT INR APTT Fibrinogen POC ABG pH 7.260 L ABG pH POC ABG pCO2 54.9 H POC ABG pO2 ABG pO2 ABG HCO3 ABG O2 Saturation ABG Base Excess ABG Hemoglobin Oxyhemoglobin Sodium Potassium 5.6 H Chloride Carbon Dioxide BUN 104 H Creatinine 6.6 H Glucose 107 H POC Glucose 106 H Uric Acid Calcium Phosphorus Magnesium Iron TIBC AST ALT Total Creatine Kinase CK-MB (CK-2) Troponin T NT-Pro-B Natriuret Pep Total Protein Albumin Triglycerides HDL Cholesterol Folate Urine WBC (Auto) Urine Creatinine Urine Total Protein Vancomycin Trough 05/18/19 05/18/19 05/19/19 11:34 23:26 04:06 WBC RBC 3.22 L Hgb 8.8 L Hct 27.3 L MCV MCH 27 L MCHC RDW 17.5 H Plt Count Lymph % (Auto) [place] % (Auto) Eos % (Auto) Lymph # [place] # Eos # Seg Neutrophils % Seg Neuts % (Manual) 74.0 H Lymphocytes % (Manual) 4.0 L Monocytes % (Manual) 11.0 H Eosinophils % (Manual) 7.0 H Nucleated RBC % 1.0 H Seg Neutrophils # Seg Neutrophils # Man Lymphocytes # (Manual) 0.3 L Monocytes # (Manual) 0.9 H Eosinophils # (Manual) 0.6 H PT INR APTT Fibrinogen POC ABG pH ABG pH POC ABG pCO2 POC ABG pO2 ABG pO2 ABG HCO3 ABG O2 Saturation ABG Base Excess ABG Hemoglobin Oxyhemoglobin Sodium Potassium Chloride Carbon Dioxide BUN Creatinine Glucose POC Glucose 152 H 112 H Uric Acid Calcium Phosphorus Magnesium Iron TIBC AST ALT Total Creatine Kinase CK-MB (CK-2) Troponin T NT-Pro-B Natriuret Pep Total Protein Albumin Triglycerides HDL Cholesterol Folate Urine WBC (Auto) Urine Creatinine Urine Total Protein Vancomycin Trough 05/19/19 05/19/19 05/20/19 04:06 06:00 04:00 WBC RBC 3.40 L Hgb 9.2 L Hct 28.6 L MCV MCH 27 L MCHC RDW 17.6 H Plt Count Lymph % (Auto) [place] % (Auto) Eos % (Auto) Lymph # [place] # Eos # Seg Neutrophils % Seg Neuts % (Manual) Lymphocytes % (Manual) 11.0 L Monocytes % (Manual) Eosinophils % (Manual) 14.0 H Nucleated RBC % Seg Neutrophils # Seg Neutrophils # Man Lymphocytes # (Manual) 1.1 L Monocytes # (Manual) Eosinophils # (Manual) 1.4 H PT INR APTT Fibrinogen POC ABG pH ABG pH 7.315 L POC ABG pCO2 POC ABG pO2 ABG pO2 ABG HCO3 ABG O2 Saturation ABG Base Excess ABG Hemoglobin 6.7 L Oxyhemoglobin 94.1 L Sodium Potassium 5.2 H Chloride Carbon Dioxide 21 L BUN 110 H Creatinine 7.2 H Glucose POC Glucose Uric Acid Calcium 8.3 L Phosphorus Magnesium Iron TIBC AST ALT Total Creatine Kinase CK-MB (CK-2) Troponin T NT-Pro-B Natriuret Pep Total Protein Albumin Triglycerides HDL Cholesterol Folate Urine WBC (Auto) Urine Creatinine Urine Total Protein Vancomycin Trough 05/20/19 05/20/19 05/20/19 04:00 05:48 12:00 WBC RBC Hgb Hct MCV MCH MCHC RDW Plt Count Lymph % (Auto) [place] % (Auto) Eos % (Auto) Lymph # [place] # Eos # Seg Neutrophils % Seg Neuts % (Manual) Lymphocytes % (Manual) Monocytes % (Manual) Eosinophils % (Manual) Nucleated RBC % Seg Neutrophils # Seg Neutrophils # Man Lymphocytes # (Manual) Monocytes # (Manual) Eosinophils # (Manual) PT INR APTT Fibrinogen POC ABG pH ABG pH 7.281 L POC ABG pCO2 POC ABG pO2 ABG pO2 78.7 L ABG HCO3 ABG O2 Saturation 94.5 L ABG Base Excess -3.0 L ABG Hemoglobin 9.9 L Oxyhemoglobin 92.5 L Sodium 136 L Potassium 5.7 H Chloride 96.3 L Carbon Dioxide BUN 125 H Creatinine 8.3 H Glucose 106 H POC Glucose Uric Acid Calcium Phosphorus Magnesium Iron TIBC AST ALT Total Creatine Kinase CK-MB (CK-2) Troponin T NT-Pro-B Natriuret Pep Total Protein Albumin Triglycerides HDL Cholesterol Folate Urine WBC (Auto) 26.0 H Urine Creatinine Urine Total Protein Vancomycin Trough 05/21/19 05/21/19 05/21/19 04:33 05:20 Unknown WBC RBC 3.38 L Hgb 9.1 L Hct 28.5 L MCV MCH 27 L MCHC RDW 17.4 H Plt Count Lymph % (Auto) [place] % (Auto) Eos % (Auto) Lymph # [place] # Eos # Seg Neutrophils % Seg Neuts % (Manual) 71.0 H Lymphocytes % (Manual) 1.0 L Monocytes % (Manual) 11.0 H Eosinophils % (Manual) 6.0 H Nucleated RBC % Seg Neutrophils # Seg Neutrophils # Man Lymphocytes # (Manual) 0.1 L Monocytes # (Manual) 1.0 H Eosinophils # (Manual) 0.6 H PT INR APTT Fibrinogen POC ABG pH 7.315 L ABG pH POC ABG pCO2 57.8 H POC ABG pO2 68 L ABG pO2 ABG HCO3 ABG O2 Saturation ABG Base Excess ABG Hemoglobin Oxyhemoglobin Sodium Potassium Chloride 96.3 L Carbon Dioxide BUN 102 H Creatinine 7.0 H Glucose 103 H POC Glucose Uric Acid Calcium Phosphorus Magnesium Iron TIBC AST ALT Total Creatine Kinase CK-MB (CK-2) Troponin T NT-Pro-B Natriuret Pep Total Protein Albumin Triglycerides HDL Cholesterol Folate Urine WBC (Auto) Urine Creatinine Urine Total Protein Vancomycin Trough 05/22/19 05/22/19 05/22/19 03:54 06:25 06:25 WBC RBC 3.22 L Hgb 8.6 L Hct 27.0 L MCV MCH 27 L MCHC RDW 17.5 H Plt Count Lymph % (Auto) [place] % (Auto) 16.2 H Eos % (Auto) 10.8 H Lymph # [place] # 1.3 H Eos # 0.9 H Seg Neutrophils % Seg Neuts % (Manual) Lymphocytes % (Manual) 10.0 L Monocytes % (Manual) 13.0 H Eosinophils % (Manual) 8.0 H Nucleated RBC % Seg Neutrophils # Seg Neutrophils # Man Lymphocytes # (Manual) 0.9 L Monocytes # (Manual) 1.1 H Eosinophils # (Manual) 0.7 H PT INR APTT Fibrinogen POC ABG pH 7.313 L ABG pH POC ABG pCO2 55.0 H POC ABG pO2 ABG pO2 ABG HCO3 ABG O2 Saturation ABG Base Excess ABG Hemoglobin Oxyhemoglobin Sodium 135 L Potassium Chloride 94.3 L Carbon Dioxide BUN 117 H Creatinine 7.8 H Glucose POC Glucose Uric Acid Calcium 8.2 L Phosphorus Magnesium Iron TIBC AST ALT Total Creatine Kinase CK-MB (CK-2) Troponin T NT-Pro-B Natriuret Pep Total Protein Albumin Triglycerides HDL Cholesterol Folate Urine WBC (Auto) Urine Creatinine Urine Total Protein Vancomycin Trough 05/23/19 05/24/19 05/24/19 05:21 05:00 05:00 WBC RBC 3.18 L Hgb 8.5 L Hct 26.7 L MCV MCH 27 L MCHC RDW 17.9 H Plt Count Lymph % (Auto) [place] % (Auto) Eos % (Auto) Lymph # [place] # Eos # Seg Neutrophils % Seg Neuts % (Manual) Lymphocytes % (Manual) Monocytes % (Manual) Eosinophils % (Manual) Nucleated RBC % Seg Neutrophils # Seg Neutrophils # Man Lymphocytes # (Manual) Monocytes # (Manual) Eosinophils # (Manual) PT INR APTT Fibrinogen POC ABG pH ABG pH POC ABG pCO2 49.7 H POC ABG pO2 73 L ABG pO2 ABG HCO3 ABG O2 Saturation ABG Base Excess ABG Hemoglobin Oxyhemoglobin Sodium Potassium Chloride 95.7 L Carbon Dioxide BUN 97 H Creatinine 6.5 H Glucose POC Glucose Uric Acid Calcium 8.0 L Phosphorus Magnesium Iron TIBC AST ALT Total Creatine Kinase CK-MB (CK-2) Troponin T NT-Pro-B Natriuret Pep Total Protein Albumin Triglycerides HDL Cholesterol Folate Urine WBC (Auto) Urine Creatinine Urine Total Protein Vancomycin Trough 05/24/19 05/25/19 05/25/19 06:17 04:22 15:45 WBC RBC 2.98 L Hgb 8.1 L Hct 24.9 L MCV MCH 27 L MCHC RDW 17.8 H Plt Count Lymph % (Auto) [place] % (Auto) Eos % (Auto) Lymph # [place] # Eos # Seg Neutrophils % Seg Neuts % (Manual) Lymphocytes % (Manual) Monocytes % (Manual) Eosinophils % (Manual) Nucleated RBC % Seg Neutrophils # Seg Neutrophils # Man Lymphocytes # (Manual) Monocytes # (Manual) Eosinophils # (Manual) PT INR APTT Fibrinogen POC ABG pH 7.330 L 7.313 L ABG pH POC ABG pCO2 52.5 H 51.1 H POC ABG pO2 77 L ABG pO2 ABG HCO3 ABG O2 Saturation ABG Base Excess ABG Hemoglobin Oxyhemoglobin Sodium Potassium Chloride Carbon Dioxide BUN Creatinine Glucose POC Glucose Uric Acid Calcium Phosphorus Magnesium Iron TIBC AST ALT Total Creatine Kinase CK-MB (CK-2) Troponin T NT-Pro-B Natriuret Pep Total Protein Albumin Triglycerides HDL Cholesterol Folate Urine WBC (Auto) Urine Creatinine Urine Total Protein Vancomycin Trough 12/31/19 01/01/20 01/01/20 15:45 04:13 05:00 WBC RBC 3.10 L Hgb 8.4 L Hct 26.0 L MCV MCH 27 L MCHC RDW 17.4 H Plt Count Lymph % (Auto) [place] % (Auto) Eos % (Auto) Lymph # [place] # Eos # Seg Neutrophils % Seg Neuts % (Manual) Lymphocytes % (Manual) Monocytes % (Manual) Eosinophils % (Manual) Nucleated RBC % Seg Neutrophils # Seg Neutrophils # Man Lymphocytes # (Manual) Monocytes # (Manual) Eosinophils # (Manual) PT INR APTT Fibrinogen POC ABG pH 7.295 L ABG pH POC ABG pCO2 56.5 H POC ABG pO2 63 L ABG pO2 ABG HCO3 ABG O2 Saturation ABG Base Excess ABG Hemoglobin Oxyhemoglobin Sodium 136 L Potassium Chloride 96.8 L Carbon Dioxide BUN 83 H Creatinine 5.9 H Glucose POC Glucose Uric Acid Calcium 7.6 L Phosphorus Magnesium Iron TIBC AST ALT Total Creatine Kinase CK-MB (CK-2) Troponin T NT-Pro-B Natriuret Pep Total Protein Albumin Triglycerides HDL Cholesterol Folate Urine WBC (Auto) Urine Creatinine Urine Total Protein Vancomycin Trough 05/26/19 05/27/19 05/28/19 05:00 04:48 04:47 WBC RBC Hgb Hct MCV MCH MCHC RDW Plt Count Lymph % (Auto) [place] % (Auto) Eos % (Auto) Lymph # [place] # Eos # Seg Neutrophils % Seg Neuts % (Manual) Lymphocytes % (Manual) Monocytes % (Manual) Eosinophils % (Manual) Nucleated RBC % Seg Neutrophils # Seg Neutrophils # Man Lymphocytes # (Manual) Monocytes # (Manual) Eosinophils # (Manual) PT INR APTT Fibrinogen POC ABG pH 7.323 L ABG pH 7.284 L POC ABG pCO2 56.2 H POC ABG pO2 ABG pO2 71.6 L ABG HCO3 ABG O2 Saturation 92.0 L ABG Base Excess ABG Hemoglobin 7.7 L Oxyhemoglobin 89.9 L Sodium 136 L Potassium Chloride 95.3 L Carbon Dioxide BUN 96 H Creatinine 6.5 H Glucose 108 H POC Glucose Uric Acid Calcium 7.6 L Phosphorus Magnesium Iron TIBC AST ALT Total Creatine Kinase CK-MB (CK-2) Troponin T NT-Pro-B Natriuret Pep Total Protein Albumin Triglycerides HDL Cholesterol Folate Urine WBC (Auto) Urine Creatinine Urine Total Protein Vancomycin Trough 05/28/19 05/29/19 05/29/19 12:30 12:47 23:44 WBC RBC Hgb Hct MCV MCH MCHC RDW Plt Count Lymph % (Auto) [place] % (Auto) Eos % (Auto) Lymph # [place] # Eos # Seg Neutrophils % Seg Neuts % (Manual) Lymphocytes % (Manual) Monocytes % (Manual) Eosinophils % (Manual) Nucleated RBC % Seg Neutrophils # Seg Neutrophils # Man Lymphocytes # (Manual) Monocytes # (Manual) Eosinophils # (Manual) PT INR APTT Fibrinogen POC ABG pH ABG pH POC ABG pCO2 POC ABG pO2 ABG pO2 ABG HCO3 ABG O2 Saturation ABG Base Excess ABG Hemoglobin Oxyhemoglobin Sodium 135 L Potassium Chloride 95.3 L Carbon Dioxide BUN 82 H Creatinine 6.0 H Glucose POC Glucose 136 H 159 H Uric Acid Calcium 7.5 L Phosphorus Magnesium Iron TIBC AST ALT Total Creatine Kinase CK-MB (CK-2) Troponin T NT-Pro-B Natriuret Pep Total Protein Albumin Triglycerides HDL Cholesterol Folate Urine WBC (Auto) Urine Creatinine Urine Total Protein Vancomycin Trough 05/30/19 05/30/19 05/30/19 04:30 05:38 12:00 WBC RBC 3.01 L Hgb 8.2 L Hct 25.3 L MCV MCH 27 L MCHC RDW 17.5 H Plt Count Lymph % (Auto) [place] % (Auto) Eos % (Auto) Lymph # [place] # Eos # Seg Neutrophils % Seg Neuts % (Manual) 80.0 H Lymphocytes % (Manual) 10.0 L Monocytes % (Manual) Eosinophils % (Manual) Nucleated RBC % Seg Neutrophils # Seg Neutrophils # Man 8.0 H Lymphocytes # (Manual) 1.0 L Monocytes # (Manual) Eosinophils # (Manual) PT INR APTT Fibrinogen POC ABG pH ABG pH POC ABG pCO2 POC ABG pO2 73 L ABG pO2 ABG HCO3 ABG O2 Saturation ABG Base Excess ABG Hemoglobin Oxyhemoglobin Sodium Potassium Chloride Carbon Dioxide BUN Creatinine Glucose POC Glucose 166 H Uric Acid Calcium Phosphorus Magnesium Iron TIBC AST ALT Total Creatine Kinase CK-MB (CK-2) Troponin T NT-Pro-B Natriuret Pep Total Protein Albumin Triglycerides HDL Cholesterol Folate Urine WBC (Auto) Urine Creatinine Urine Total Protein Vancomycin Trough 05/30/19 05/31/19 05/31/19 23:45 04:07 13:04 WBC 14.3 H RBC 2.88 L Hgb 7.7 L Hct 23.9 L MCV 83 L MCH 27 L MCHC RDW 17.8 H Plt Count Lymph % (Auto) [place] % (Auto) Eos % (Auto) Lymph # [place] # Eos # Seg Neutrophils % Seg Neuts % (Manual) 83.0 H Lymphocytes % (Manual) 11.0 L Monocytes % (Manual) Eosinophils % (Manual) Nucleated RBC % Seg Neutrophils # Seg Neutrophils # Man 11.9 H Lymphocytes # (Manual) Monocytes # (Manual) 0.9 H Eosinophils # (Manual) PT INR APTT Fibrinogen POC ABG pH ABG pH POC ABG pCO2 47.4 H POC ABG pO2 ABG pO2 ABG HCO3 ABG O2 Saturation ABG Base Excess ABG Hemoglobin Oxyhemoglobin Sodium Potassium Chloride Carbon Dioxide BUN Creatinine Glucose POC Glucose 209 H Uric Acid Calcium Phosphorus Magnesium Iron TIBC AST ALT Total Creatine Kinase CK-MB (CK-2) Troponin T NT-Pro-B Natriuret Pep Total Protein Albumin Triglycerides HDL Cholesterol Folate Urine WBC (Auto) Urine Creatinine Urine Total Protein Vancomycin Trough 05/31/19 05/31/19 06/01/19 13:04 16:42 00:15 WBC RBC Hgb Hct MCV MCH MCHC RDW Plt Count Lymph % (Auto) [place] % (Auto) Eos % (Auto) Lymph # [place] # Eos # Seg Neutrophils % Seg Neuts % (Manual) Lymphocytes % (Manual) Monocytes % (Manual) Eosinophils % (Manual) Nucleated RBC % Seg Neutrophils # Seg Neutrophils # Man Lymphocytes # (Manual) Monocytes # (Manual) Eosinophils # (Manual) PT INR APTT Fibrinogen POC ABG pH ABG pH POC ABG pCO2 POC ABG pO2 ABG pO2 ABG HCO3 ABG O2 Saturation ABG Base Excess ABG Hemoglobin Oxyhemoglobin Sodium 129 L Potassium Chloride 88.6 L Carbon Dioxide 19 L BUN 117 H Creatinine 6.7 H Glucose 205 H POC Glucose 228 H 223 H Uric Acid Calcium 7.4 L Phosphorus 7.40 H Magnesium Iron TIBC AST 58 H ALT 149 H Total Creatine Kinase CK-MB (CK-2) Troponin T NT-Pro-B Natriuret Pep Total Protein 6.0 L Albumin 2.5 L Triglycerides HDL Cholesterol Folate Urine WBC (Auto) Urine Creatinine Urine Total Protein Vancomycin Trough 06/01/19 06/01/19 06/01/19 04:33 05:27 12:31 WBC RBC Hgb Hct MCV MCH MCHC RDW Plt Count Lymph % (Auto) [place] % (Auto) Eos % (Auto) Lymph # [place] # Eos # Seg Neutrophils % Seg Neuts % (Manual) Lymphocytes % (Manual) Monocytes % (Manual) Eosinophils % (Manual) Nucleated RBC % Seg Neutrophils # Seg Neutrophils # Man Lymphocytes # (Manual) Monocytes # (Manual) Eosinophils # (Manual) PT INR APTT Fibrinogen POC ABG pH ABG pH POC ABG pCO2 POC ABG pO2 ABG pO2 56.9 L ABG HCO3 ABG O2 Saturation 85.9 L ABG Base Excess ABG Hemoglobin 8.1 L Oxyhemoglobin 83.6 L Sodium Potassium Chloride Carbon Dioxide BUN Creatinine Glucose POC Glucose 183 H 217 H Uric Acid Calcium Phosphorus Magnesium Iron TIBC AST ALT Total Creatine Kinase CK-MB (CK-2) Troponin T NT-Pro-B Natriuret Pep Total Protein Albumin Triglycerides HDL Cholesterol Folate Urine WBC (Auto) Urine Creatinine Urine Total Protein Vancomycin Trough 06/01/19 06/02/19 06/02/19 18:20 00:00 05:33 WBC RBC Hgb Hct MCV MCH MCHC RDW Plt Count Lymph % (Auto) [place] % (Auto) Eos % (Auto) Lymph # [place] # Eos # Seg Neutrophils % Seg Neuts % (Manual) Lymphocytes % (Manual) Monocytes % (Manual) Eosinophils % (Manual) Nucleated RBC % Seg Neutrophils # Seg Neutrophils # Man Lymphocytes # (Manual) Monocytes # (Manual) Eosinophils # (Manual) PT INR APTT Fibrinogen POC ABG pH ABG pH POC ABG pCO2 POC ABG pO2 ABG pO2 ABG HCO3 ABG O2 Saturation ABG Base Excess ABG Hemoglobin Oxyhemoglobin Sodium Potassium Chloride Carbon Dioxide BUN Creatinine Glucose POC Glucose 265 H 279 H 259 H Uric Acid Calcium Phosphorus Magnesium Iron TIBC AST ALT Total Creatine Kinase CK-MB (CK-2) Troponin T NT-Pro-B Natriuret Pep Total Protein Albumin Triglycerides HDL Cholesterol Folate Urine WBC (Auto) Urine Creatinine Urine Total Protein Vancomycin Trough 06/02/19 06/02/19 06/02/19 11:06 11:06 11:42 WBC 13.1 H RBC 2.92 L Hgb 7.9 L Hct 24.4 L MCV MCH 27 L MCHC RDW 17.4 H Plt Count Lymph % (Auto) [place] % (Auto) Eos % (Auto) Lymph # [place] # Eos # Seg Neutrophils % Seg Neuts % (Manual) 78.0 H Lymphocytes % (Manual) 12.0 L Monocytes % (Manual) 10.0 H Eosinophils % (Manual) Nucleated RBC % Seg Neutrophils # Seg Neutrophils # Man 10.2 H Lymphocytes # (Manual) Monocytes # (Manual) 1.3 H Eosinophils # (Manual) PT INR APTT Fibrinogen POC ABG pH ABG pH POC ABG pCO2 POC ABG pO2 ABG pO2 ABG HCO3 ABG O2 Saturation ABG Base Excess ABG Hemoglobin Oxyhemoglobin Sodium 135 L Potassium Chloride 94.7 L Carbon Dioxide 21 L BUN 107 H Creatinine 4.5 H Glucose 286 H POC Glucose 263 H Uric Acid Calcium 7.9 L Phosphorus 6.30 H Magnesium Iron TIBC AST ALT 104 H Total Creatine Kinase CK-MB (CK-2) Troponin T NT-Pro-B Natriuret Pep Total Protein 6.0 L Albumin 2.7 L Triglycerides HDL Cholesterol Folate Urine WBC (Auto) Urine Creatinine Urine Total Protein Vancomycin Trough 06/02/19 06/02/19 06/03/19 18:17 23:55 05:30 WBC RBC Hgb Hct MCV MCH MCHC RDW Plt Count Lymph % (Auto) [place] % (Auto) Eos % (Auto) Lymph # [place] # Eos # Seg Neutrophils % Seg Neuts % (Manual) Lymphocytes % (Manual) Monocytes % (Manual) Eosinophils % (Manual) Nucleated RBC % Seg Neutrophils # Seg Neutrophils # Man Lymphocytes # (Manual) Monocytes # (Manual) Eosinophils # (Manual) PT INR APTT Fibrinogen POC ABG pH ABG pH POC ABG pCO2 POC ABG pO2 ABG pO2 ABG HCO3 ABG O2 Saturation ABG Base Excess ABG Hemoglobin Oxyhemoglobin Sodium Potassium Chloride 95.1 L Carbon Dioxide 21 L BUN 119 H Creatinine 4.1 H Glucose 330 H POC Glucose 276 H 244 H Uric Acid Calcium 8.1 L Phosphorus Magnesium Iron TIBC AST ALT 98 H Total Creatine Kinase CK-MB (CK-2) Troponin T NT-Pro-B Natriuret Pep Total Protein 5.8 L Albumin 2.8 L Triglycerides HDL Cholesterol Folate Urine WBC (Auto) Urine Creatinine Urine Total Protein Vancomycin Trough 06/03/19 06/03/19 06/03/19 05:30 06:04 09:42 WBC 12.8 H RBC 3.01 L Hgb 8.2 L Hct 25.4 L MCV MCH 27 L MCHC RDW 17.5 H Plt Count Lymph % (Auto) [place] % (Auto) Eos % (Auto) Lymph # [place] # Eos # Seg Neutrophils % Seg Neuts % (Manual) 78.0 H Lymphocytes % (Manual) 10.0 L Monocytes % (Manual) 12.0 H Eosinophils % (Manual) Nucleated RBC % Seg Neutrophils # Seg Neutrophils # Man 10.0 H Lymphocytes # (Manual) Monocytes # (Manual) 1.5 H Eosinophils # (Manual) PT INR APTT Fibrinogen POC ABG pH ABG pH POC ABG pCO2 POC ABG pO2 ABG pO2 ABG HCO3 ABG O2 Saturation ABG Base Excess ABG Hemoglobin Oxyhemoglobin Sodium Potassium Chloride Carbon Dioxide BUN 106 H Creatinine Glucose POC Glucose 254 H Uric Acid Calcium Phosphorus Magnesium Iron TIBC AST ALT Total Creatine Kinase CK-MB (CK-2) Troponin T NT-Pro-B Natriuret Pep Total Protein Albumin Triglycerides HDL Cholesterol Folate Urine WBC (Auto) Urine Creatinine Urine Total Protein Vancomycin Trough 06/03/19 06/03/19 06/03/19 12:52 17:25 23:37 WBC RBC Hgb Hct MCV MCH MCHC RDW Plt Count Lymph % (Auto) [place] % (Auto) Eos % (Auto) Lymph # [place] # Eos # Seg Neutrophils % Seg Neuts % (Manual) Lymphocytes % (Manual) Monocytes % (Manual) Eosinophils % (Manual) Nucleated RBC % Seg Neutrophils # Seg Neutrophils # Man Lymphocytes # (Manual) Monocytes # (Manual) Eosinophils # (Manual) PT INR APTT Fibrinogen POC ABG pH ABG pH POC ABG pCO2 POC ABG pO2 ABG pO2 ABG HCO3 ABG O2 Saturation ABG Base Excess ABG Hemoglobin Oxyhemoglobin Sodium Potassium Chloride Carbon Dioxide BUN Creatinine Glucose POC Glucose 274 H 285 H 310 H Uric Acid Calcium Phosphorus Magnesium Iron TIBC AST ALT Total Creatine Kinase CK-MB (CK-2) Troponin T NT-Pro-B Natriuret Pep Total Protein Albumin Triglycerides HDL Cholesterol Folate Urine WBC (Auto) Urine Creatinine Urine Total Protein Vancomycin Trough 06/04/19 06/04/19 06/04/19 04:57 05:03 11:50 WBC RBC Hgb Hct MCV MCH MCHC RDW Plt Count Lymph % (Auto) [place] % (Auto) Eos % (Auto) Lymph # [place] # Eos # Seg Neutrophils % Seg Neuts % (Manual) Lymphocytes % (Manual) Monocytes % (Manual) Eosinophils % (Manual) Nucleated RBC % Seg Neutrophils # Seg Neutrophils # Man Lymphocytes # (Manual) Monocytes # (Manual) Eosinophils # (Manual) PT INR APTT Fibrinogen POC ABG pH 7.488 H ABG pH POC ABG pCO2 POC ABG pO2 ABG pO2 ABG HCO3 ABG O2 Saturation ABG Base Excess ABG Hemoglobin Oxyhemoglobin Sodium Potassium Chloride Carbon Dioxide BUN Creatinine Glucose POC Glucose 275 H 279 H Uric Acid Calcium Phosphorus Magnesium Iron TIBC AST ALT Total Creatine Kinase CK-MB (CK-2) Troponin T NT-Pro-B Natriuret Pep Total Protein Albumin Triglycerides HDL Cholesterol Folate Urine WBC (Auto) Urine Creatinine Urine Total Protein Vancomycin Trough 06/04/19 06/04/19 06/04/19 18:32 22:03 23:55 WBC RBC Hgb Hct MCV MCH MCHC RDW Plt Count Lymph % (Auto) [place] % (Auto) Eos % (Auto) Lymph # [place] # Eos # Seg Neutrophils % Seg Neuts % (Manual) Lymphocytes % (Manual) Monocytes % (Manual) Eosinophils % (Manual) Nucleated RBC % Seg Neutrophils # Seg Neutrophils # Man Lymphocytes # (Manual) Monocytes # (Manual) Eosinophils # (Manual) PT INR APTT Fibrinogen POC ABG pH ABG pH POC ABG pCO2 POC ABG pO2 ABG pO2 ABG HCO3 ABG O2 Saturation ABG Base Excess ABG Hemoglobin Oxyhemoglobin Sodium Potassium Chloride Carbon Dioxide BUN Creatinine Glucose POC Glucose 267 H 307 H 292 H Uric Acid Calcium Phosphorus Magnesium Iron TIBC AST ALT Total Creatine Kinase CK-MB (CK-2) Troponin T NT-Pro-B Natriuret Pep Total Protein Albumin Triglycerides HDL Cholesterol Folate Urine WBC (Auto) Urine Creatinine Urine Total Protein Vancomycin Trough 06/05/19 06/05/19 06/05/19 03:52 06:41 12:29 WBC RBC Hgb Hct MCV MCH MCHC RDW Plt Count Lymph % (Auto) [place] % (Auto) Eos % (Auto) Lymph # [place] # Eos # Seg Neutrophils % Seg Neuts % (Manual) Lymphocytes % (Manual) Monocytes % (Manual) Eosinophils % (Manual) Nucleated RBC % Seg Neutrophils # Seg Neutrophils # Man Lymphocytes # (Manual) Monocytes # (Manual) Eosinophils # (Manual) PT INR APTT Fibrinogen POC ABG pH 7.462 H ABG pH POC ABG pCO2 POC ABG pO2 ABG pO2 ABG HCO3 ABG O2 Saturation ABG Base Excess ABG Hemoglobin Oxyhemoglobin Sodium Potassium Chloride Carbon Dioxide BUN Creatinine Glucose POC Glucose 369 H 265 H Uric Acid Calcium Phosphorus Magnesium Iron TIBC AST ALT Total Creatine Kinase CK-MB (CK-2) Troponin T NT-Pro-B Natriuret Pep Total Protein Albumin Triglycerides HDL Cholesterol Folate Urine WBC (Auto) Urine Creatinine Urine Total Protein Vancomycin Trough 06/05/19 06/05/19 06/05/19 18:20 21:42 23:21 WBC RBC Hgb Hct MCV MCH MCHC RDW Plt Count Lymph % (Auto) [place] % (Auto) Eos % (Auto) Lymph # [place] # Eos # Seg Neutrophils % Seg Neuts % (Manual) Lymphocytes % (Manual) Monocytes % (Manual) Eosinophils % (Manual) Nucleated RBC % Seg Neutrophils # Seg Neutrophils # Man Lymphocytes # (Manual) Monocytes # (Manual) Eosinophils # (Manual) PT INR APTT Fibrinogen POC ABG pH ABG pH POC ABG pCO2 POC ABG pO2 ABG pO2 ABG HCO3 ABG O2 Saturation ABG Base Excess ABG Hemoglobin Oxyhemoglobin Sodium Potassium Chloride Carbon Dioxide BUN Creatinine Glucose POC Glucose 249 H 246 H 274 H Uric Acid Calcium Phosphorus Magnesium Iron TIBC AST ALT Total Creatine Kinase CK-MB (CK-2) Troponin T NT-Pro-B Natriuret Pep Total Protein Albumin Triglycerides HDL Cholesterol Folate Urine WBC (Auto) Urine Creatinine Urine Total Protein Vancomycin Trough 06/06/19 06/06/19 06/06/19 04:00 05:49 11:34 WBC 18.1 H RBC 3.53 L Hgb 9.5 L Hct 30.3 L MCV MCH 27 L MCHC 31 L RDW 19.5 H Plt Count Lymph % (Auto) [place] % (Auto) Eos % (Auto) Lymph # [place] # Eos # Seg Neutrophils % Seg Neuts % (Manual) 87.0 H Lymphocytes % (Manual) 3.0 L Monocytes % (Manual) 8.0 H Eosinophils % (Manual) Nucleated RBC % Seg Neutrophils # Seg Neutrophils # Man 15.7 H Lymphocytes # (Manual) 0.5 L Monocytes # (Manual) 1.4 H Eosinophils # (Manual) PT INR APTT Fibrinogen POC ABG pH ABG pH 7.472 H POC ABG pCO2 POC ABG pO2 ABG pO2 76.4 L ABG HCO3 28.1 H ABG O2 Saturation ABG Base Excess 4.3 H ABG Hemoglobin 12.5 L Oxyhemoglobin 93.8 L Sodium Potassium Chloride Carbon Dioxide BUN Creatinine Glucose POC Glucose 340 H Uric Acid Calcium Phosphorus Magnesium Iron TIBC AST ALT Total Creatine Kinase CK-MB (CK-2) Troponin T NT-Pro-B Natriuret Pep Total Protein Albumin Triglycerides HDL Cholesterol Folate Urine WBC (Auto) Urine Creatinine Urine Total Protein Vancomycin Trough 06/06/19 06/06/19 06/06/19 11:34 12:11 18:10 WBC RBC Hgb Hct MCV MCH MCHC RDW Plt Count Lymph % (Auto) [place] % (Auto) Eos % (Auto) Lymph # [place] # Eos # Seg Neutrophils % Seg Neuts % (Manual) Lymphocytes % (Manual) Monocytes % (Manual) Eosinophils % (Manual) Nucleated RBC % Seg Neutrophils # Seg Neutrophils # Man Lymphocytes # (Manual) Monocytes # (Manual) Eosinophils # (Manual) PT INR APTT Fibrinogen POC ABG pH ABG pH POC ABG pCO2 POC ABG pO2 ABG pO2 ABG HCO3 ABG O2 Saturation ABG Base Excess ABG Hemoglobin Oxyhemoglobin Sodium Potassium Chloride Carbon Dioxide BUN 70 H Creatinine Glucose 310 H POC Glucose 283 H 301 H Uric Acid Calcium 8.3 L Phosphorus 4.60 H Magnesium Iron TIBC AST ALT 75 H Total Creatine Kinase CK-MB (CK-2) Troponin T NT-Pro-B Natriuret Pep Total Protein 5.6 L Albumin 2.9 L Triglycerides HDL Cholesterol Folate Urine WBC (Auto) Urine Creatinine Urine Total Protein Vancomycin Trough 06/06/19 06/06/19 06/07/19 22:21 23:16 04:30 WBC RBC Hgb Hct MCV MCH MCHC RDW Plt Count Lymph % (Auto) [place] % (Auto) Eos % (Auto) Lymph # [place] # Eos # Seg Neutrophils % Seg Neuts % (Manual) Lymphocytes % (Manual) Monocytes % (Manual) Eosinophils % (Manual) Nucleated RBC % Seg Neutrophils # Seg Neutrophils # Man Lymphocytes # (Manual) Monocytes # (Manual) Eosinophils # (Manual) PT INR APTT Fibrinogen POC ABG pH ABG pH 7.480 H POC ABG pCO2 POC ABG pO2 ABG pO2 77.0 L ABG HCO3 27.2 H ABG O2 Saturation ABG Base Excess 3.5 H ABG Hemoglobin 7.1 L Oxyhemoglobin 94.2 L Sodium Potassium Chloride Carbon Dioxide BUN Creatinine Glucose POC Glucose 289 H 343 H Uric Acid Calcium Phosphorus Magnesium Iron TIBC AST ALT Total Creatine Kinase CK-MB (CK-2) Troponin T NT-Pro-B Natriuret Pep Total Protein Albumin Triglycerides HDL Cholesterol Folate Urine WBC (Auto) Urine Creatinine Urine Total Protein Vancomycin Trough 06/07/19 06/07/19 06/07/19 05:15 12:52 18:41 WBC RBC Hgb Hct MCV MCH MCHC RDW Plt Count Lymph % (Auto) [place] % (Auto) Eos % (Auto) Lymph # [place] # Eos # Seg Neutrophils % Seg Neuts % (Manual) Lymphocytes % (Manual) Monocytes % (Manual) Eosinophils % (Manual) Nucleated RBC % Seg Neutrophils # Seg Neutrophils # Man Lymphocytes # (Manual) Monocytes # (Manual) Eosinophils # (Manual) PT INR APTT Fibrinogen POC ABG pH ABG pH POC ABG pCO2 POC ABG pO2 ABG pO2 ABG HCO3 ABG O2 Saturation ABG Base Excess ABG Hemoglobin Oxyhemoglobin Sodium Potassium Chloride Carbon Dioxide BUN Creatinine Glucose POC Glucose 307 H 226 H 187 H Uric Acid Calcium Phosphorus Magnesium Iron TIBC AST ALT Total Creatine Kinase CK-MB (CK-2) Troponin T NT-Pro-B Natriuret Pep Total Protein Albumin Triglycerides HDL Cholesterol Folate Urine WBC (Auto) Urine Creatinine Urine Total Protein Vancomycin Trough 06/07/19 06/07/19 06/08/19 22:54 23:46 04:20 WBC 16.0 H RBC Hgb 10.0 L Hct 32.1 L MCV MCH 27 L MCHC 31 L RDW 19.4 H Plt Count Lymph % (Auto) [place] % (Auto) Eos % (Auto) Lymph # [place] # Eos # Seg Neutrophils % Seg Neuts % (Manual) 87.0 H Lymphocytes % (Manual) 7.0 L Monocytes % (Manual) Eosinophils % (Manual) Nucleated RBC % Seg Neutrophils # Seg Neutrophils # Man 13.9 H Lymphocytes # (Manual) 1.1 L Monocytes # (Manual) 1.0 H Eosinophils # (Manual) PT INR APTT Fibrinogen POC ABG pH ABG pH POC ABG pCO2 POC ABG pO2 ABG pO2 ABG HCO3 ABG O2 Saturation ABG Base Excess ABG Hemoglobin Oxyhemoglobin Sodium Potassium Chloride Carbon Dioxide BUN Creatinine Glucose POC Glucose 199 H 172 H Uric Acid Calcium Phosphorus Magnesium Iron TIBC AST ALT Total Creatine Kinase CK-MB (CK-2) Troponin T NT-Pro-B Natriuret Pep Total Protein Albumin Triglycerides HDL Cholesterol Folate Urine WBC (Auto) Urine Creatinine Urine Total Protein Vancomycin Trough 06/08/19 06/08/19 06/08/19 04:20 05:15 11:31 WBC RBC Hgb Hct MCV MCH MCHC RDW Plt Count Lymph % (Auto) [place] % (Auto) Eos % (Auto) Lymph # [place] # Eos # Seg Neutrophils % Seg Neuts % (Manual) Lymphocytes % (Manual) Monocytes % (Manual) Eosinophils % (Manual) Nucleated RBC % Seg Neutrophils # Seg Neutrophils # Man Lymphocytes # (Manual) Monocytes # (Manual) Eosinophils # (Manual) PT INR APTT Fibrinogen POC ABG pH ABG pH POC ABG pCO2 POC ABG pO2 ABG pO2 ABG HCO3 ABG O2 Saturation ABG Base Excess ABG Hemoglobin Oxyhemoglobin Sodium 146 H D Potassium Chloride Carbon Dioxide BUN 77 H Creatinine Glucose 205 H POC Glucose 209 H 181 H Uric Acid Calcium Phosphorus Magnesium Iron TIBC AST ALT 66 H Total Creatine Kinase CK-MB (CK-2) Troponin T NT-Pro-B Natriuret Pep Total Protein 5.5 L Albumin 2.9 L Triglycerides HDL Cholesterol Folate Urine WBC (Auto) Urine Creatinine Urine Total Protein Vancomycin Trough 06/08/19 06/08/19 06/09/19 17:28 23:24 05:20 WBC RBC Hgb Hct MCV MCH MCHC RDW Plt Count Lymph % (Auto) [place] % (Auto) Eos % (Auto) Lymph # [place] # Eos # Seg Neutrophils % Seg Neuts % (Manual) Lymphocytes % (Manual) Monocytes % (Manual) Eosinophils % (Manual) Nucleated RBC % Seg Neutrophils # Seg Neutrophils # Man Lymphocytes # (Manual) Monocytes # (Manual) Eosinophils # (Manual) PT INR APTT Fibrinogen POC ABG pH ABG pH POC ABG pCO2 POC ABG pO2 ABG pO2 ABG HCO3 ABG O2 Saturation ABG Base Excess ABG Hemoglobin Oxyhemoglobin Sodium Potassium Chloride Carbon Dioxide BUN Creatinine Glucose POC Glucose 215 H 200 H 173 H Uric Acid Calcium Phosphorus Magnesium Iron TIBC AST ALT Total Creatine Kinase CK-MB (CK-2) Troponin T NT-Pro-B Natriuret Pep Total Protein Albumin Triglycerides HDL Cholesterol Folate Urine WBC (Auto) Urine Creatinine Urine Total Protein Vancomycin Trough 06/09/19 06/09/19 06/09/19 12:07 18:32 23:51 WBC RBC Hgb Hct MCV MCH MCHC RDW Plt Count Lymph % (Auto) [place] % (Auto) Eos % (Auto) Lymph # [place] # Eos # Seg Neutrophils % Seg Neuts % (Manual) Lymphocytes % (Manual) Monocytes % (Manual) Eosinophils % (Manual) Nucleated RBC % Seg Neutrophils # Seg Neutrophils # Man Lymphocytes # (Manual) Monocytes # (Manual) Eosinophils # (Manual) PT INR APTT Fibrinogen POC ABG pH ABG pH POC ABG pCO2 POC ABG pO2 ABG pO2 ABG HCO3 ABG O2 Saturation ABG Base Excess ABG Hemoglobin Oxyhemoglobin Sodium Potassium Chloride Carbon Dioxide BUN Creatinine Glucose POC Glucose 117 H 169 H 147 H Uric Acid Calcium Phosphorus Magnesium Iron TIBC AST ALT Total Creatine Kinase CK-MB (CK-2) Troponin T NT-Pro-B Natriuret Pep Total Protein Albumin Triglycerides HDL Cholesterol Folate Urine WBC (Auto) Urine Creatinine Urine Total Protein Vancomycin Trough 06/10/19 06/10/19 06/10/19 05:45 05:45 06:01 WBC 14.6 H RBC Hgb 9.9 L Hct 32.2 L MCV MCH 27 L MCHC 31 L RDW 19.6 H Plt Count Lymph % (Auto) 10.5 L [place] % (Auto) 9.4 H Eos % (Auto) Lymph # [place] # 1.4 H Eos # Seg Neutrophils % 79.9 H Seg Neuts % (Manual) Lymphocytes % (Manual) Monocytes % (Manual) Eosinophils % (Manual) Nucleated RBC % Seg Neutrophils # 11.7 H Seg Neutrophils # Man Lymphocytes # (Manual) Monocytes # (Manual) Eosinophils # (Manual) PT INR APTT Fibrinogen POC ABG pH ABG pH POC ABG pCO2 POC ABG pO2 ABG pO2 ABG HCO3 ABG O2 Saturation ABG Base Excess ABG Hemoglobin Oxyhemoglobin Sodium 150 H Potassium Chloride 108.3 H Carbon Dioxide BUN 49 H Creatinine Glucose 172 H POC Glucose 165 H Uric Acid Calcium Phosphorus Magnesium 1.40 L Iron TIBC AST ALT Total Creatine Kinase CK-MB (CK-2) Troponin T NT-Pro-B Natriuret Pep Total Protein Albumin Triglycerides HDL Cholesterol Folate Urine WBC (Auto) Urine Creatinine Urine Total Protein Vancomycin Trough 06/10/19 06/10/19 06/11/19 12:11 18:30 00:02 WBC RBC Hgb Hct MCV MCH MCHC RDW Plt Count Lymph % (Auto) [place] % (Auto) Eos % (Auto) Lymph # [place] # Eos # Seg Neutrophils % Seg Neuts % (Manual) Lymphocytes % (Manual) Monocytes % (Manual) Eosinophils % (Manual) Nucleated RBC % Seg Neutrophils # Seg Neutrophils # Man Lymphocytes # (Manual) Monocytes # (Manual) Eosinophils # (Manual) PT INR APTT Fibrinogen POC ABG pH ABG pH POC ABG pCO2 POC ABG pO2 ABG pO2 ABG HCO3 ABG O2 Saturation ABG Base Excess ABG Hemoglobin Oxyhemoglobin Sodium Potassium Chloride Carbon Dioxide BUN Creatinine Glucose POC Glucose 150 H 154 H 130 H Uric Acid Calcium Phosphorus Magnesium Iron TIBC AST ALT Total Creatine Kinase CK-MB (CK-2) Troponin T NT-Pro-B Natriuret Pep Total Protein Albumin Triglycerides HDL Cholesterol Folate Urine WBC (Auto) Urine Creatinine Urine Total Protein Vancomycin Trough 06/11/19 06/11/19 06/11/19 05:33 08:34 12:33 WBC RBC Hgb Hct MCV MCH MCHC RDW Plt Count Lymph % (Auto) [place] % (Auto) Eos % (Auto) Lymph # [place] # Eos # Seg Neutrophils % Seg Neuts % (Manual) Lymphocytes % (Manual) Monocytes % (Manual) Eosinophils % (Manual) Nucleated RBC % Seg Neutrophils # Seg Neutrophils # Man Lymphocytes # (Manual) Monocytes # (Manual) Eosinophils # (Manual) PT INR APTT Fibrinogen POC ABG pH ABG pH POC ABG pCO2 POC ABG pO2 ABG pO2 ABG HCO3 ABG O2 Saturation ABG Base Excess ABG Hemoglobin Oxyhemoglobin Sodium 154 H Potassium Chloride 111.6 H Carbon Dioxide BUN 41 H Creatinine Glucose 147 H POC Glucose 183 H 185 H Uric Acid Calcium Phosphorus Magnesium Iron TIBC AST ALT Total Creatine Kinase CK-MB (CK-2) Troponin T NT-Pro-B Natriuret Pep Total Protein Albumin Triglycerides HDL Cholesterol Folate Urine WBC (Auto) Urine Creatinine Urine Total Protein Vancomycin Trough 06/11/19 06/11/19 06/12/19 18:22 23:46 03:21 WBC 11.9 H RBC 3.61 L Hgb 9.9 L Hct 31.7 L MCV MCH 27 L MCHC 31 L RDW 19.3 H Plt Count Lymph % (Auto) 10.6 L [place] % (Auto) 8.6 H Eos % (Auto) Lymph # [place] # 1.0 H Eos # Seg Neutrophils % 80.6 H Seg Neuts % (Manual) Lymphocytes % (Manual) Monocytes % (Manual) Eosinophils % (Manual) Nucleated RBC % Seg Neutrophils # 9.6 H Seg Neutrophils # Man Lymphocytes # (Manual) Monocytes # (Manual) Eosinophils # (Manual) PT INR APTT Fibrinogen POC ABG pH ABG pH POC ABG pCO2 POC ABG pO2 ABG pO2 ABG HCO3 ABG O2 Saturation ABG Base Excess ABG Hemoglobin Oxyhemoglobin Sodium Potassium Chloride Carbon Dioxide BUN Creatinine Glucose POC Glucose 158 H 182 H Uric Acid Calcium Phosphorus Magnesium Iron TIBC AST ALT Total Creatine Kinase CK-MB (CK-2) Troponin T NT-Pro-B Natriuret Pep Total Protein Albumin Triglycerides HDL Cholesterol Folate Urine WBC (Auto) Urine Creatinine Urine Total Protein Vancomycin Trough 06/12/19 06/12/19 06/12/19 03:21 06:04 11:28 WBC RBC Hgb Hct MCV MCH MCHC RDW Plt Count Lymph % (Auto) [place] % (Auto) Eos % (Auto) Lymph # [place] # Eos # Seg Neutrophils % Seg Neuts % (Manual) Lymphocytes % (Manual) Monocytes % (Manual) Eosinophils % (Manual) Nucleated RBC % Seg Neutrophils # Seg Neutrophils # Man Lymphocytes # (Manual) Monocytes # (Manual) Eosinophils # (Manual) PT INR APTT Fibrinogen POC ABG pH ABG pH POC ABG pCO2 POC ABG pO2 ABG pO2 ABG HCO3 ABG O2 Saturation ABG Base Excess ABG Hemoglobin Oxyhemoglobin Sodium 148 H Potassium Chloride 107.3 H Carbon Dioxide BUN 34 H Creatinine 0.7 L Glucose 194 H POC Glucose 133 H 167 H Uric Acid Calcium Phosphorus Magnesium 1.40 L Iron TIBC AST ALT Total Creatine Kinase CK-MB (CK-2) Troponin T NT-Pro-B Natriuret Pep Total Protein Albumin Triglycerides HDL Cholesterol Folate Urine WBC (Auto) Urine Creatinine Urine Total Protein Vancomycin Trough 06/12/19 06/12/19 06/13/19 18:47 21:27 00:04 WBC RBC Hgb Hct MCV MCH MCHC RDW Plt Count Lymph % (Auto) [place] % (Auto) Eos % (Auto) Lymph # [place] # Eos # Seg Neutrophils % Seg Neuts % (Manual) Lymphocytes % (Manual) Monocytes % (Manual) Eosinophils % (Manual) Nucleated RBC % Seg Neutrophils # Seg Neutrophils # Man Lymphocytes # (Manual) Monocytes # (Manual) Eosinophils # (Manual) PT INR APTT Fibrinogen POC ABG pH ABG pH POC ABG pCO2 POC ABG pO2 ABG pO2 ABG HCO3 ABG O2 Saturation ABG Base Excess ABG Hemoglobin Oxyhemoglobin Sodium Potassium Chloride Carbon Dioxide BUN Creatinine Glucose POC Glucose 210 H 263 H 248 H Uric Acid Calcium Phosphorus Magnesium Iron TIBC AST ALT Total Creatine Kinase CK-MB (CK-2) Troponin T NT-Pro-B Natriuret Pep Total Protein Albumin Triglycerides HDL Cholesterol Folate Urine WBC (Auto) Urine Creatinine Urine Total Protein Vancomycin Trough 06/13/19 06/13/19 06/13/19 04:32 05:46 13:30 WBC RBC Hgb Hct MCV MCH MCHC RDW Plt Count Lymph % (Auto) [place] % (Auto) Eos % (Auto) Lymph # [place] # Eos # Seg Neutrophils % Seg Neuts % (Manual) Lymphocytes % (Manual) Monocytes % (Manual) Eosinophils % (Manual) Nucleated RBC % Seg Neutrophils # Seg Neutrophils # Man Lymphocytes # (Manual) Monocytes # (Manual) Eosinophils # (Manual) PT INR APTT Fibrinogen POC ABG pH ABG pH POC ABG pCO2 POC ABG pO2 ABG pO2 ABG HCO3 ABG O2 Saturation ABG Base Excess ABG Hemoglobin Oxyhemoglobin Sodium Potassium Chloride Carbon Dioxide BUN 27 H Creatinine 0.7 L Glucose 253 H POC Glucose 201 H 241 H Uric Acid Calcium Phosphorus Magnesium Iron TIBC AST ALT Total Creatine Kinase CK-MB (CK-2) Troponin T NT-Pro-B Natriuret Pep Total Protein Albumin Triglycerides HDL Cholesterol Folate Urine WBC (Auto) Urine Creatinine Urine Total Protein Vancomycin Trough 06/13/19 06/13/19 06/14/19 17:33 23:49 04:50 WBC RBC Hgb Hct MCV MCH MCHC RDW Plt Count Lymph % (Auto) [place] % (Auto) Eos % (Auto) Lymph # [place] # Eos # Seg Neutrophils % Seg Neuts % (Manual) Lymphocytes % (Manual) Monocytes % (Manual) Eosinophils % (Manual) Nucleated RBC % Seg Neutrophils # Seg Neutrophils # Man Lymphocytes # (Manual) Monocytes # (Manual) Eosinophils # (Manual) PT INR APTT Fibrinogen POC ABG pH ABG pH POC ABG pCO2 POC ABG pO2 ABG pO2 ABG HCO3 ABG O2 Saturation ABG Base Excess ABG Hemoglobin Oxyhemoglobin Sodium Potassium Chloride Carbon Dioxide BUN 37 H Creatinine Glucose 256 H POC Glucose 264 H 236 H Uric Acid Calcium Phosphorus Magnesium Iron TIBC AST ALT Total Creatine Kinase CK-MB (CK-2) Troponin T NT-Pro-B Natriuret Pep Total Protein Albumin Triglycerides HDL Cholesterol Folate Urine WBC (Auto) Urine Creatinine Urine Total Protein Vancomycin Trough 06/14/19 06/14/19 06/14/19 05:26 12:31 18:32 WBC RBC Hgb Hct MCV MCH MCHC RDW Plt Count Lymph % (Auto) [place] % (Auto) Eos % (Auto) Lymph # [place] # Eos # Seg Neutrophils % Seg Neuts % (Manual) Lymphocytes % (Manual) Monocytes % (Manual) Eosinophils % (Manual) Nucleated RBC % Seg Neutrophils # Seg Neutrophils # Man Lymphocytes # (Manual) Monocytes # (Manual) Eosinophils # (Manual) PT INR APTT Fibrinogen POC ABG pH ABG pH POC ABG pCO2 POC ABG pO2 ABG pO2 ABG HCO3 ABG O2 Saturation ABG Base Excess ABG Hemoglobin Oxyhemoglobin Sodium Potassium Chloride Carbon Dioxide BUN Creatinine Glucose POC Glucose 239 H 116 H 247 H Uric Acid Calcium Phosphorus Magnesium Iron TIBC AST ALT Total Creatine Kinase CK-MB (CK-2) Troponin T NT-Pro-B Natriuret Pep Total Protein Albumin Triglycerides HDL Cholesterol Folate Urine WBC (Auto) Urine Creatinine Urine Total Protein Vancomycin Trough 06/14/19 06/15/19 06/15/19 23:57 04:05 05:55 WBC RBC Hgb Hct MCV MCH MCHC RDW Plt Count Lymph % (Auto) [place] % (Auto) Eos % (Auto) Lymph # [place] # Eos # Seg Neutrophils % Seg Neuts % (Manual) Lymphocytes % (Manual) Monocytes % (Manual) Eosinophils % (Manual) Nucleated RBC % Seg Neutrophils # Seg Neutrophils # Man Lymphocytes # (Manual) Monocytes # (Manual) Eosinophils # (Manual) PT INR APTT Fibrinogen POC ABG pH ABG pH POC ABG pCO2 POC ABG pO2 ABG pO2 ABG HCO3 ABG O2 Saturation ABG Base Excess ABG Hemoglobin Oxyhemoglobin Sodium Potassium Chloride Carbon Dioxide BUN 46 H Creatinine 0.7 L Glucose 265 H POC Glucose 206 H 265 H Uric Acid Calcium Phosphorus Magnesium Iron TIBC AST ALT Total Creatine Kinase CK-MB (CK-2) Troponin T NT-Pro-B Natriuret Pep Total Protein Albumin Triglycerides HDL Cholesterol Folate Urine WBC (Auto) Urine Creatinine Urine Total Protein Vancomycin Trough 06/15/19 06/15/19 06/15/19 12:08 18:45 23:41 WBC RBC Hgb Hct MCV MCH MCHC RDW Plt Count Lymph % (Auto) [place] % (Auto) Eos % (Auto) Lymph # [place] # Eos # Seg Neutrophils % Seg Neuts % (Manual) Lymphocytes % (Manual) Monocytes % (Manual) Eosinophils % (Manual) Nucleated RBC % Seg Neutrophils # Seg Neutrophils # Man Lymphocytes # (Manual) Monocytes # (Manual) Eosinophils # (Manual) PT INR APTT Fibrinogen POC ABG pH ABG pH POC ABG pCO2 POC ABG pO2 ABG pO2 ABG HCO3 ABG O2 Saturation ABG Base Excess ABG Hemoglobin Oxyhemoglobin Sodium Potassium Chloride Carbon Dioxide BUN Creatinine Glucose POC Glucose 224 H 177 H 193 H Uric Acid Calcium Phosphorus Magnesium Iron TIBC AST ALT Total Creatine Kinase CK-MB (CK-2) Troponin T NT-Pro-B Natriuret Pep Total Protein Albumin Triglycerides HDL Cholesterol Folate Urine WBC (Auto) Urine Creatinine Urine Total Protein Vancomycin Trough 06/16/19 06/16/19 06/16/19 05:00 05:00 05:40 WBC 11.9 H RBC 3.24 L Hgb 9.0 L Hct 29.0 L MCV MCH MCHC 31 L RDW 18.6 H Plt Count 111 L Lymph % (Auto) [place] % (Auto) Eos % (Auto) Lymph # [place] # Eos # Seg Neutrophils % Seg Neuts % (Manual) 92.0 H Lymphocytes % (Manual) 2.0 L Monocytes % (Manual) Eosinophils % (Manual) Nucleated RBC % Seg Neutrophils # Seg Neutrophils # Man 10.9 H Lymphocytes # (Manual) 0.2 L Monocytes # (Manual) Eosinophils # (Manual) PT INR APTT Fibrinogen POC ABG pH ABG pH POC ABG pCO2 POC ABG pO2 ABG pO2 ABG HCO3 ABG O2 Saturation ABG Base Excess ABG Hemoglobin Oxyhemoglobin Sodium Potassium Chloride Carbon Dioxide 33 H BUN 49 H Creatinine 0.7 L Glucose 264 H POC Glucose 247 H Uric Acid Calcium Phosphorus Magnesium Iron TIBC AST ALT Total Creatine Kinase CK-MB (CK-2) Troponin T NT-Pro-B Natriuret Pep Total Protein Albumin Triglycerides HDL Cholesterol Folate Urine WBC (Auto) Urine Creatinine Urine Total Protein Vancomycin Trough 06/16/19 06/16/19 06/16/19 12:03 17:11 18:11 WBC RBC Hgb Hct MCV MCH MCHC RDW Plt Count Lymph % (Auto) [place] % (Auto) Eos % (Auto) Lymph # [place] # Eos # Seg Neutrophils % Seg Neuts % (Manual) Lymphocytes % (Manual) Monocytes % (Manual) Eosinophils % (Manual) Nucleated RBC % Seg Neutrophils # Seg Neutrophils # Man Lymphocytes # (Manual) Monocytes # (Manual) Eosinophils # (Manual) PT INR APTT Fibrinogen POC ABG pH ABG pH 7.289 L POC ABG pCO2 POC ABG pO2 ABG pO2 399.3 H ABG HCO3 30.1 H ABG O2 Saturation 99.6 H ABG Base Excess ABG Hemoglobin 8.6 L Oxyhemoglobin Sodium Potassium Chloride Carbon Dioxide BUN Creatinine Glucose POC Glucose 252 H 254 H Uric Acid Calcium Phosphorus Magnesium Iron TIBC AST ALT Total Creatine Kinase CK-MB (CK-2) Troponin T NT-Pro-B Natriuret Pep Total Protein Albumin Triglycerides HDL Cholesterol Folate Urine WBC (Auto) Urine Creatinine Urine Total Protein Vancomycin Trough 06/16/19 06/17/19 06/17/19 23:16 05:30 05:53 WBC RBC Hgb Hct MCV MCH MCHC RDW Plt Count Lymph % (Auto) [place] % (Auto) Eos % (Auto) Lymph # [place] # Eos # Seg Neutrophils % Seg Neuts % (Manual) Lymphocytes % (Manual) Monocytes % (Manual) Eosinophils % (Manual) Nucleated RBC % Seg Neutrophils # Seg Neutrophils # Man Lymphocytes # (Manual) Monocytes # (Manual) Eosinophils # (Manual) PT INR APTT Fibrinogen POC ABG pH ABG pH POC ABG pCO2 POC ABG pO2 ABG pO2 ABG HCO3 ABG O2 Saturation ABG Base Excess ABG Hemoglobin Oxyhemoglobin Sodium 147 H Potassium Chloride Carbon Dioxide 32 H BUN 60 H Creatinine Glucose 205 H POC Glucose 238 H 211 H Uric Acid Calcium Phosphorus Magnesium Iron TIBC AST ALT Total Creatine Kinase CK-MB (CK-2) Troponin T NT-Pro-B Natriuret Pep Total Protein Albumin Triglycerides HDL Cholesterol Folate Urine WBC (Auto) Urine Creatinine Urine Total Protein Vancomycin Trough 06/17/19 06/17/19 06/17/19 09:50 12:27 12:45 WBC RBC 2.79 L Hgb 8.2 L Hct 24.6 L MCV MCH MCHC RDW 18.5 H Plt Count 95 L Lymph % (Auto) [place] % (Auto) Eos % (Auto) Lymph # [place] # Eos # Seg Neutrophils % Seg Neuts % (Manual) Lymphocytes % (Manual) Monocytes % (Manual) Eosinophils % (Manual) Nucleated RBC % Seg Neutrophils # Seg Neutrophils # Man Lymphocytes # (Manual) Monocytes # (Manual) Eosinophils # (Manual) PT INR APTT Fibrinogen 194 L POC ABG pH ABG pH POC ABG pCO2 POC ABG pO2 ABG pO2 ABG HCO3 ABG O2 Saturation ABG Base Excess ABG Hemoglobin Oxyhemoglobin Sodium Potassium Chloride Carbon Dioxide BUN Creatinine Glucose POC Glucose 224 H Uric Acid Calcium Phosphorus Magnesium Iron TIBC AST ALT Total Creatine Kinase CK-MB (CK-2) Troponin T NT-Pro-B Natriuret Pep Total Protein Albumin Triglycerides HDL Cholesterol Folate Urine WBC (Auto) Urine Creatinine Urine Total Protein Vancomycin Trough 06/17/19 06/17/19 06/17/19 18:41 22:00 23:23 WBC RBC Hgb Hct MCV MCH MCHC RDW Plt Count Lymph % (Auto) [place] % (Auto) Eos % (Auto) Lymph # [place] # Eos # Seg Neutrophils % Seg Neuts % (Manual) Lymphocytes % (Manual) Monocytes % (Manual) Eosinophils % (Manual) Nucleated RBC % Seg Neutrophils # Seg Neutrophils # Man Lymphocytes # (Manual) Monocytes # (Manual) Eosinophils # (Manual) PT INR APTT Fibrinogen POC ABG pH ABG pH POC ABG pCO2 POC ABG pO2 ABG pO2 ABG HCO3 ABG O2 Saturation ABG Base Excess ABG Hemoglobin Oxyhemoglobin Sodium Potassium Chloride Carbon Dioxide BUN Creatinine Glucose POC Glucose 198 H 166 H 171 H Uric Acid Calcium Phosphorus Magnesium Iron TIBC AST ALT Total Creatine Kinase CK-MB (CK-2) Troponin T NT-Pro-B Natriuret Pep Total Protein Albumin Triglycerides HDL Cholesterol Folate Urine WBC (Auto) Urine Creatinine Urine Total Protein Vancomycin Trough 06/17/19 06/18/19 06/18/19 Unknown 03:50 04:25 WBC RBC Hgb Hct MCV MCH MCHC RDW Plt Count Lymph % (Auto) [place] % (Auto) Eos % (Auto) Lymph # [place] # Eos # Seg Neutrophils % Seg Neuts % (Manual) Lymphocytes % (Manual) Monocytes % (Manual) Eosinophils % (Manual) Nucleated RBC % Seg Neutrophils # Seg Neutrophils # Man Lymphocytes # (Manual) Monocytes # (Manual) Eosinophils # (Manual) PT INR APTT Fibrinogen POC ABG pH ABG pH 7.564 H 7.499 H POC ABG pCO2 POC ABG pO2 ABG pO2 238.6 H 130.8 H ABG HCO3 33.6 H 32.5 H ABG O2 Saturation 99.4 H ABG Base Excess 10.6 H 8.5 H ABG Hemoglobin 7.9 L 8.8 L Oxyhemoglobin Sodium 151 H Potassium 3.4 L Chloride Carbon Dioxide BUN 66 H Creatinine Glucose 189 H POC Glucose Uric Acid Calcium Phosphorus Magnesium Iron TIBC AST ALT Total Creatine Kinase CK-MB (CK-2) Troponin T NT-Pro-B Natriuret Pep Total Protein Albumin Triglycerides HDL Cholesterol Folate Urine WBC (Auto) Urine Creatinine Urine Total Protein Vancomycin Trough 06/18/19 06/18/19 06/18/19 05:25 05:27 11:50 WBC RBC 2.61 L Hgb 7.4 L Hct 22.9 L MCV MCH MCHC RDW 19.9 H Plt Count 81 L Lymph % (Auto) 12.9 L [place] % (Auto) 7.7 H Eos % (Auto) Lymph # 1.1 L [place] # Eos # Seg Neutrophils % 77.4 H Seg Neuts % (Manual) Lymphocytes % (Manual) Monocytes % (Manual) Eosinophils % (Manual) Nucleated RBC % Seg Neutrophils # Seg Neutrophils # Man Lymphocytes # (Manual) Monocytes # (Manual) Eosinophils # (Manual) PT INR APTT Fibrinogen POC ABG pH ABG pH POC ABG pCO2 POC ABG pO2 ABG pO2 ABG HCO3 ABG O2 Saturation ABG Base Excess ABG Hemoglobin Oxyhemoglobin Sodium Potassium Chloride Carbon Dioxide BUN Creatinine Glucose POC Glucose 186 H 263 H Uric Acid Calcium Phosphorus Magnesium Iron TIBC AST ALT Total Creatine Kinase CK-MB (CK-2) Troponin T NT-Pro-B Natriuret Pep Total Protein Albumin Triglycerides HDL Cholesterol Folate Urine WBC (Auto) Urine Creatinine Urine Total Protein Vancomycin Trough 06/18/19 06/18/19 06/18/19 18:35 21:31 23:21 WBC RBC Hgb Hct MCV MCH MCHC RDW Plt Count Lymph % (Auto) [place] % (Auto) Eos % (Auto) Lymph # [place] # Eos # Seg Neutrophils % Seg Neuts % (Manual) Lymphocytes % (Manual) Monocytes % (Manual) Eosinophils % (Manual) Nucleated RBC % Seg Neutrophils # Seg Neutrophils # Man Lymphocytes # (Manual) Monocytes # (Manual) Eosinophils # (Manual) PT INR APTT Fibrinogen POC ABG pH ABG pH POC ABG pCO2 POC ABG pO2 ABG pO2 ABG HCO3 ABG O2 Saturation ABG Base Excess ABG Hemoglobin Oxyhemoglobin Sodium Potassium Chloride Carbon Dioxide BUN Creatinine Glucose POC Glucose 154 H 186 H 202 H Uric Acid Calcium Phosphorus Magnesium Iron TIBC AST ALT Total Creatine Kinase CK-MB (CK-2) Troponin T NT-Pro-B Natriuret Pep Total Protein Albumin Triglycerides HDL Cholesterol Folate Urine WBC (Auto) Urine Creatinine Urine Total Protein Vancomycin Trough 06/19/19 06/19/19 06/19/19 03:18 04:30 04:30 WBC RBC 2.65 L Hgb 7.5 L Hct 23.1 L MCV MCH MCHC RDW 19.4 H Plt Count 74 L Lymph % (Auto) 8.8 L [place] % (Auto) 9.4 H Eos % (Auto) 4.7 H Lymph # 0.6 L [place] # Eos # Seg Neutrophils % 76.6 H Seg Neuts % (Manual) Lymphocytes % (Manual) Monocytes % (Manual) Eosinophils % (Manual) Nucleated RBC % Seg Neutrophils # Seg Neutrophils # Man Lymphocytes # (Manual) Monocytes # (Manual) Eosinophils # (Manual) PT INR APTT Fibrinogen POC ABG pH ABG pH 7.452 H POC ABG pCO2 POC ABG pO2 ABG pO2 105.5 H ABG HCO3 32.3 H ABG O2 Saturation ABG Base Excess 7.6 H ABG Hemoglobin 6.9 L Oxyhemoglobin Sodium 150 H Potassium 3.3 L Chloride Carbon Dioxide 31 H BUN 56 H Creatinine Glucose 197 H POC Glucose Uric Acid Calcium Phosphorus Magnesium Iron TIBC AST ALT Total Creatine Kinase CK-MB (CK-2) Troponin T NT-Pro-B Natriuret Pep Total Protein Albumin Triglycerides 210 H HDL Cholesterol Folate Urine WBC (Auto) Urine Creatinine Urine Total Protein Vancomycin Trough 06/19/19 06/19/19 06/19/19 05:24 12:18 18:55 WBC RBC Hgb Hct MCV MCH MCHC RDW Plt Count Lymph % (Auto) [place] % (Auto) Eos % (Auto) Lymph # [place] # Eos # Seg Neutrophils % Seg Neuts % (Manual) Lymphocytes % (Manual) Monocytes % (Manual) Eosinophils % (Manual) Nucleated RBC % Seg Neutrophils # Seg Neutrophils # Man Lymphocytes # (Manual) Monocytes # (Manual) Eosinophils # (Manual) PT INR APTT Fibrinogen POC ABG pH ABG pH POC ABG pCO2 POC ABG pO2 ABG pO2 ABG HCO3 ABG O2 Saturation ABG Base Excess ABG Hemoglobin Oxyhemoglobin Sodium Potassium Chloride Carbon Dioxide BUN Creatinine Glucose POC Glucose 176 H 260 H 192 H Uric Acid Calcium Phosphorus Magnesium Iron TIBC AST ALT Total Creatine Kinase CK-MB (CK-2) Troponin T NT-Pro-B Natriuret Pep Total Protein Albumin Triglycerides HDL Cholesterol Folate Urine WBC (Auto) Urine Creatinine Urine Total Protein Vancomycin Trough 06/19/19 06/19/19 06/20/19 22:57 23:46 04:40 WBC RBC 2.79 L Hgb 7.9 L Hct 24.3 L MCV MCH MCHC RDW 19.6 H Plt Count 92 L Lymph % (Auto) 9.2 L [place] % (Auto) 12.0 H Eos % (Auto) 5.2 H Lymph # 0.9 L [place] # 1.2 H Eos # 0.5 H Seg Neutrophils % 73.3 H Seg Neuts % (Manual) Lymphocytes % (Manual) Monocytes % (Manual) Eosinophils % (Manual) Nucleated RBC % Seg Neutrophils # Seg Neutrophils # Man Lymphocytes # (Manual) Monocytes # (Manual) Eosinophils # (Manual) PT INR APTT Fibrinogen POC ABG pH ABG pH POC ABG pCO2 POC ABG pO2 ABG pO2 ABG HCO3 ABG O2 Saturation ABG Base Excess ABG Hemoglobin Oxyhemoglobin Sodium Potassium Chloride Carbon Dioxide BUN Creatinine Glucose POC Glucose 145 H 216 H Uric Acid Calcium Phosphorus Magnesium Iron TIBC AST ALT Total Creatine Kinase CK-MB (CK-2) Troponin T NT-Pro-B Natriuret Pep Total Protein Albumin Triglycerides HDL Cholesterol Folate Urine WBC (Auto) Urine Creatinine Urine Total Protein Vancomycin Trough 06/20/19 06/20/19 06/20/19 04:40 05:40 05:54 WBC RBC Hgb Hct MCV MCH MCHC RDW Plt Count Lymph % (Auto) [place] % (Auto) Eos % (Auto) Lymph # [place] # Eos # Seg Neutrophils % Seg Neuts % (Manual) Lymphocytes % (Manual) Monocytes % (Manual) Eosinophils % (Manual) Nucleated RBC % Seg Neutrophils # Seg Neutrophils # Man Lymphocytes # (Manual) Monocytes # (Manual) Eosinophils # (Manual) PT INR APTT Fibrinogen POC ABG pH ABG pH 7.455 H POC ABG pCO2 POC ABG pO2 ABG pO2 60.9 L ABG HCO3 30.3 H ABG O2 Saturation 92.3 L ABG Base Excess 5.8 H ABG Hemoglobin 8.2 L Oxyhemoglobin 90.1 L Sodium Potassium 3.5 L Chloride Carbon Dioxide BUN 59 H Creatinine Glucose 200 H POC Glucose 190 H Uric Acid Calcium Phosphorus Magnesium 1.60 L Iron TIBC AST ALT Total Creatine Kinase CK-MB (CK-2) Troponin T NT-Pro-B Natriuret Pep Total Protein Albumin Triglycerides HDL Cholesterol Folate Urine WBC (Auto) Urine Creatinine Urine Total Protein Vancomycin Trough 06/20/19 06/20/19 06/20/19 09:12 09:12 12:24 WBC RBC Hgb Hct MCV MCH MCHC RDW Plt Count Lymph % (Auto) [place] % (Auto) Eos % (Auto) Lymph # [place] # Eos # Seg Neutrophils % Seg Neuts % (Manual) Lymphocytes % (Manual) Monocytes % (Manual) Eosinophils % (Manual) Nucleated RBC % Seg Neutrophils # Seg Neutrophils # Man Lymphocytes # (Manual) Monocytes # (Manual) Eosinophils # (Manual) PT INR APTT Fibrinogen POC ABG pH ABG pH POC ABG pCO2 POC ABG pO2 ABG pO2 ABG HCO3 ABG O2 Saturation ABG Base Excess ABG Hemoglobin Oxyhemoglobin Sodium Potassium Chloride Carbon Dioxide BUN Creatinine Glucose POC Glucose 225 H Uric Acid Calcium Phosphorus Magnesium Iron 45 L TIBC 110 L AST ALT Total Creatine Kinase CK-MB (CK-2) Troponin T NT-Pro-B Natriuret Pep Total Protein Albumin Triglycerides HDL Cholesterol Folate 7.01 L Urine WBC (Auto) Urine Creatinine Urine Total Protein Vancomycin Trough 06/20/19 06/20/19 06/20/19 17:42 21:55 23:24 WBC RBC Hgb Hct MCV MCH MCHC RDW Plt Count Lymph % (Auto) [place] % (Auto) Eos % (Auto) Lymph # [place] # Eos # Seg Neutrophils % Seg Neuts % (Manual) Lymphocytes % (Manual) Monocytes % (Manual) Eosinophils % (Manual) Nucleated RBC % Seg Neutrophils # Seg Neutrophils # Man Lymphocytes # (Manual) Monocytes # (Manual) Eosinophils # (Manual) PT INR APTT Fibrinogen POC ABG pH ABG pH POC ABG pCO2 POC ABG pO2 ABG pO2 ABG HCO3 ABG O2 Saturation ABG Base Excess ABG Hemoglobin Oxyhemoglobin Sodium Potassium Chloride Carbon Dioxide BUN Creatinine Glucose POC Glucose 255 H 218 H 215 H Uric Acid Calcium Phosphorus Magnesium Iron TIBC AST ALT Total Creatine Kinase CK-MB (CK-2) Troponin T NT-Pro-B Natriuret Pep Total Protein Albumin Triglycerides HDL Cholesterol Folate Urine WBC (Auto) Urine Creatinine Urine Total Protein Vancomycin Trough 01/27/20 01/27/20 01/27/20 03:32 03:40 05:20 WBC 12.8 H RBC 3.03 L Hgb 8.5 L Hct 26.2 L MCV MCH MCHC RDW 19.4 H Plt Count 131 L Lymph % (Auto) [place] % (Auto) Eos % (Auto) Lymph # [place] # Eos # Seg Neutrophils % Seg Neuts % (Manual) 78.0 H Lymphocytes % (Manual) 5.0 L Monocytes % (Manual) 11.0 H Eosinophils % (Manual) Nucleated RBC % Seg Neutrophils # Seg Neutrophils # Man 10.0 H Lymphocytes # (Manual) 0.6 L Monocytes # (Manual) 1.4 H Eosinophils # (Manual) 0.5 H PT INR APTT Fibrinogen POC ABG pH ABG pH 7.476 H POC ABG pCO2 POC ABG pO2 ABG pO2 162.0 H ABG HCO3 26.8 H ABG O2 Saturation 99.1 H ABG Base Excess 3.1 H ABG Hemoglobin 8.6 L Oxyhemoglobin Sodium Potassium Chloride Carbon Dioxide BUN Creatinine Glucose POC Glucose 202 H Uric Acid Calcium Phosphorus Magnesium Iron TIBC AST ALT Total Creatine Kinase CK-MB (CK-2) Troponin T NT-Pro-B Natriuret Pep Total Protein Albumin Triglycerides HDL Cholesterol Folate Urine WBC (Auto) Urine Creatinine Urine Total Protein Vancomycin Trough 06/21/19 06/21/19 06/21/19 05:20 12:30 18:18 WBC RBC Hgb Hct MCV MCH MCHC RDW Plt Count Lymph % (Auto) [place] % (Auto) Eos % (Auto) Lymph # [place] # Eos # Seg Neutrophils % Seg Neuts % (Manual) Lymphocytes % (Manual) Monocytes % (Manual) Eosinophils % (Manual) Nucleated RBC % Seg Neutrophils # Seg Neutrophils # Man Lymphocytes # (Manual) Monocytes # (Manual) Eosinophils # (Manual) PT INR APTT Fibrinogen POC ABG pH ABG pH POC ABG pCO2 POC ABG pO2 ABG pO2 ABG HCO3 ABG O2 Saturation ABG Base Excess ABG Hemoglobin Oxyhemoglobin Sodium Potassium Chloride 97.7 L Carbon Dioxide BUN 69 H Creatinine Glucose 239 H POC Glucose 176 H 187 H Uric Acid Calcium Phosphorus Magnesium 2.40 H Iron TIBC AST ALT Total Creatine Kinase CK-MB (CK-2) Troponin T NT-Pro-B Natriuret Pep Total Protein Albumin Triglycerides HDL Cholesterol Folate Urine WBC (Auto) Urine Creatinine Urine Total Protein Vancomycin Trough 06/22/19 06/22/1906/22/20 04:11 05:30 05:30 WBC 12.6 H RBC 3.10 L Hgb 8.7 L Hct 27.0 L MCV MCH MCHC RDW 19.8 H Plt Count Lymph % (Auto) [place] % (Auto) Eos % (Auto) Lymph # [place] # Eos # Seg Neutrophils % Seg Neuts % (Manual) Lymphocytes % (Manual) Monocytes % (Manual) 10.0 H Eosinophils % (Manual) Nucleated RBC % Seg Neutrophils # Seg Neutrophils # Man 8.7 H Lymphocytes # (Manual) Monocytes # (Manual) 1.3 H Eosinophils # (Manual) PT INR APTT Fibrinogen POC ABG pH ABG pH POC ABG pCO2 POC ABG pO2 ABG pO2 ABG HCO3 27.7 H ABG O2 Saturation ABG Base Excess 3.3 H ABG Hemoglobin 8.5 L Oxyhemoglobin 94.9 L Sodium Potassium Chloride Carbon Dioxide BUN 66 H Creatinine Glucose 103 H POC Glucose Uric Acid Calcium Phosphorus Magnesium Iron TIBC AST ALT Total Creatine Kinase CK-MB (CK-2) Troponin T NT-Pro-B Natriuret Pep Total Protein Albumin Triglycerides HDL Cholesterol Folate Urine WBC (Auto) Urine Creatinine Urine Total Protein Vancomycin Trough 06/22/19 06/22/19 06/23/19 17:43 23:25 02:00 WBC RBC Hgb Hct MCV MCH MCHC RDW Plt Count Lymph % (Auto) [place] % (Auto) Eos % (Auto) Lymph # [place] # Eos # Seg Neutrophils % Seg Neuts % (Manual) Lymphocytes % (Manual) Monocytes % (Manual) Eosinophils % (Manual) Nucleated RBC % Seg Neutrophils # Seg Neutrophils # Man Lymphocytes # (Manual) Monocytes # (Manual) Eosinophils # (Manual) PT INR APTT Fibrinogen POC ABG pH ABG pH 7.469 H POC ABG pCO2 POC ABG pO2 ABG pO2 58.7 L ABG HCO3 28.0 H ABG O2 Saturation 94.6 L ABG Base Excess 4.0 H ABG Hemoglobin 7.1 L Oxyhemoglobin 92.2 L Sodium Potassium Chloride Carbon Dioxide BUN Creatinine Glucose POC Glucose 143 H 106 H Uric Acid Calcium Phosphorus Magnesium Iron TIBC AST ALT Total Creatine Kinase CK-MB (CK-2) Troponin T NT-Pro-B Natriuret Pep Total Protein Albumin Triglycerides HDL Cholesterol Folate Urine WBC (Auto) Urine Creatinine Urine Total Protein Vancomycin Trough 06/23/19 06/23/19 06/23/19 05:24 05:24 11:43 WBC 12.6 H RBC 2.96 L Hgb 8.3 L Hct 25.5 L MCV MCH MCHC RDW 20.2 H Plt Count Lymph % (Auto) [place] % (Auto) Eos % (Auto) Lymph # [place] # Eos # Seg Neutrophils % Seg Neuts % (Manual) Lymphocytes % (Manual) 12.0 L Monocytes % (Manual) 11.0 H Eosinophils % (Manual) 6.0 H Nucleated RBC % Seg Neutrophils # Seg Neutrophils # Man 8.8 H Lymphocytes # (Manual) Monocytes # (Manual) 1.4 H Eosinophils # (Manual) 0.8 H PT INR APTT Fibrinogen POC ABG pH ABG pH POC ABG pCO2 POC ABG pO2 ABG pO2 ABG HCO3 ABG O2 Saturation ABG Base Excess ABG Hemoglobin Oxyhemoglobin Sodium 146 H Potassium 3.5 L Chloride Carbon Dioxide BUN 48 H Creatinine Glucose 123 H POC Glucose 120 H Uric Acid Calcium Phosphorus Magnesium Iron TIBC AST ALT Total Creatine Kinase CK-MB (CK-2) Troponin T NT-Pro-B Natriuret Pep Total Protein Albumin Triglycerides HDL Cholesterol Folate Urine WBC (Auto) Urine Creatinine Urine Total Protein Vancomycin Trough 06/23/19 06/24/19 06/24/19 17:39 06:53 06:53 WBC 12.3 H RBC 2.87 L Hgb 8.0 L Hct 24.9 L MCV MCH MCHC RDW 20.5 H Plt Count Lymph % (Auto) [place] % (Auto) 8.8 H Eos % (Auto) 4.4 H Lymph # [place] # 1.1 H Eos # 0.5 H Seg Neutrophils % Seg Neuts % (Manual) Lymphocytes % (Manual) Monocytes % (Manual) Eosinophils % (Manual) Nucleated RBC % Seg Neutrophils # Seg Neutrophils # Man Lymphocytes # (Manual) Monocytes # (Manual) Eosinophils # (Manual) PT INR APTT Fibrinogen POC ABG pH ABG pH POC ABG pCO2 POC ABG pO2 ABG pO2 ABG HCO3 ABG O2 Saturation ABG Base Excess ABG Hemoglobin Oxyhemoglobin Sodium Potassium Chloride 107.1 H Carbon Dioxide 21 L BUN 29 H Creatinine 0.6 L Glucose 117 H POC Glucose 111 H Uric Acid Calcium Phosphorus Magnesium 1.60 L Iron TIBC AST ALT Total Creatine Kinase CK-MB (CK-2) Troponin T NT-Pro-B Natriuret Pep Total Protein Albumin Triglycerides HDL Cholesterol Folate Urine WBC (Auto) Urine Creatinine Urine Total Protein Vancomycin Trough 06/24/19 06/24/19 06/24/19 12:12 18:01 23:20 WBC RBC Hgb Hct MCV MCH MCHC RDW Plt Count Lymph % (Auto) [place] % (Auto) Eos % (Auto) Lymph # [place] # Eos # Seg Neutrophils % Seg Neuts % (Manual) Lymphocytes % (Manual) Monocytes % (Manual) Eosinophils % (Manual) Nucleated RBC % Seg Neutrophils # Seg Neutrophils # Man Lymphocytes # (Manual) Monocytes # (Manual) Eosinophils # (Manual) PT INR APTT Fibrinogen POC ABG pH ABG pH POC ABG pCO2 POC ABG pO2 ABG pO2 ABG HCO3 ABG O2 Saturation ABG Base Excess ABG Hemoglobin Oxyhemoglobin Sodium Potassium Chloride Carbon Dioxide BUN Creatinine Glucose POC Glucose 158 H 133 H 106 H Uric Acid Calcium Phosphorus Magnesium Iron TIBC AST ALT Total Creatine Kinase CK-MB (CK-2) Troponin T NT-Pro-B Natriuret Pep Total Protein Albumin Triglycerides HDL Cholesterol Folate Urine WBC (Auto) Urine Creatinine Urine Total Protein Vancomycin Trough 06/25/19 06/25/19 06/25/19 04:46 04:46 05:36 WBC 12.3 H RBC 2.98 L Hgb 8.3 L Hct 26.4 L MCV MCH MCHC 31 L RDW 20.1 H Plt Count Lymph % (Auto) [place] % (Auto) Eos % (Auto) Lymph # [place] # Eos # Seg Neutrophils % Seg Neuts % (Manual) Lymphocytes % (Manual) Monocytes % (Manual) 10.0 H Eosinophils % (Manual) Nucleated RBC % Seg Neutrophils # Seg Neutrophils # Man 8.1 H Lymphocytes # (Manual) Monocytes # (Manual) 1.2 H Eosinophils # (Manual) PT INR APTT Fibrinogen POC ABG pH ABG pH POC ABG pCO2 POC ABG pO2 ABG pO2 ABG HCO3 ABG O2 Saturation ABG Base Excess ABG Hemoglobin Oxyhemoglobin Sodium 148 H Potassium Chloride 108.0 H Carbon Dioxide BUN 21 H Creatinine 0.7 L Glucose 120 H POC Glucose 121 H Uric Acid Calcium Phosphorus Magnesium Iron TIBC AST ALT Total Creatine Kinase CK-MB (CK-2) Troponin T NT-Pro-B Natriuret Pep Total Protein Albumin Triglycerides HDL Cholesterol Folate Urine WBC (Auto) Urine Creatinine Urine Total Protein Vancomycin Trough 06/25/19 06/25/19 06/26/19 14:02 18:30 00:01 WBC RBC Hgb Hct MCV MCH MCHC RDW Plt Count Lymph % (Auto) [place] % (Auto) Eos % (Auto) Lymph # [place] # Eos # Seg Neutrophils % Seg Neuts % (Manual) Lymphocytes % (Manual) Monocytes % (Manual) Eosinophils % (Manual) Nucleated RBC % Seg Neutrophils # Seg Neutrophils # Man Lymphocytes # (Manual) Monocytes # (Manual) Eosinophils # (Manual) PT INR APTT Fibrinogen POC ABG pH ABG pH POC ABG pCO2 POC ABG pO2 ABG pO2 ABG HCO3 ABG O2 Saturation ABG Base Excess ABG Hemoglobin Oxyhemoglobin Sodium Potassium Chloride Carbon Dioxide BUN Creatinine Glucose POC Glucose 125 H 145 H 142 H Uric Acid Calcium Phosphorus Magnesium Iron TIBC AST ALT Total Creatine Kinase CK-MB (CK-2) Troponin T NT-Pro-B Natriuret Pep Total Protein Albumin Triglycerides HDL Cholesterol Folate Urine WBC (Auto) Urine Creatinine Urine Total Protein Vancomycin Trough 06/26/19 06/26/19 06/26/19 04:43 04:43 05:41 WBC RBC 3.02 L Hgb 8.6 L Hct 27.0 L MCV MCH MCHC RDW 20.4 H Plt Count Lymph % (Auto) [place] % (Auto) Eos % (Auto) Lymph # [place] # Eos # Seg Neutrophils % Seg Neuts % (Manual) Lymphocytes % (Manual) Monocytes % (Manual) 9.0 H Eosinophils % (Manual) Nucleated RBC % Seg Neutrophils # Seg Neutrophils # Man Lymphocytes # (Manual) Monocytes # (Manual) 1.0 H Eosinophils # (Manual) PT INR APTT Fibrinogen POC ABG pH ABG pH POC ABG pCO2 POC ABG pO2 ABG pO2 ABG HCO3 ABG O2 Saturation ABG Base Excess ABG Hemoglobin Oxyhemoglobin Sodium Potassium Chloride Carbon Dioxide BUN Creatinine 0.7 L Glucose 111 H POC Glucose 110 H Uric Acid Calcium Phosphorus Magnesium 1.60 L Iron TIBC AST ALT Total Creatine Kinase CK-MB (CK-2) Troponin T NT-Pro-B Natriuret Pep Total Protein Albumin Triglycerides HDL Cholesterol Folate Urine WBC (Auto) Urine Creatinine Urine Total Protein Vancomycin Trough 06/26/19 06/26/19 06/27/19 11:55 18:07 12:10 WBC RBC Hgb Hct MCV MCH MCHC RDW Plt Count Lymph % (Auto) [place] % (Auto) Eos % (Auto) Lymph # [place] # Eos # Seg Neutrophils % Seg Neuts % (Manual) Lymphocytes % (Manual) Monocytes % (Manual) Eosinophils % (Manual) Nucleated RBC % Seg Neutrophils # Seg Neutrophils # Man Lymphocytes # (Manual) Monocytes # (Manual) Eosinophils # (Manual) PT INR APTT Fibrinogen POC ABG pH ABG pH POC ABG pCO2 POC ABG pO2 ABG pO2 ABG HCO3 ABG O2 Saturation ABG Base Excess ABG Hemoglobin Oxyhemoglobin Sodium Potassium Chloride Carbon Dioxide BUN Creatinine Glucose POC Glucose 159 H 107 H 121 H Uric Acid Calcium Phosphorus Magnesium Iron TIBC AST ALT Total Creatine Kinase CK-MB (CK-2) Troponin T NT-Pro-B Natriuret Pep Total Protein Albumin Triglycerides HDL Cholesterol Folate Urine WBC (Auto) Urine Creatinine Urine Total Protein Vancomycin Trough 06/28/19 06/29/19 06/29/19 05:54 13:10 17:58 WBC RBC Hgb Hct MCV MCH MCHC RDW Plt Count Lymph % (Auto) [place] % (Auto) Eos % (Auto) Lymph # [place] # Eos # Seg Neutrophils % Seg Neuts % (Manual) Lymphocytes % (Manual) Monocytes % (Manual) Eosinophils % (Manual) Nucleated RBC % Seg Neutrophils # Seg Neutrophils # Man Lymphocytes # (Manual) Monocytes # (Manual) Eosinophils # (Manual) PT INR APTT Fibrinogen POC ABG pH ABG pH POC ABG pCO2 POC ABG pO2 ABG pO2 ABG HCO3 ABG O2 Saturation ABG Base Excess ABG Hemoglobin Oxyhemoglobin Sodium Potassium Chloride Carbon Dioxide BUN Creatinine Glucose POC Glucose 107 H 115 H 108 H Uric Acid Calcium Phosphorus Magnesium Iron TIBC AST ALT Total Creatine Kinase CK-MB (CK-2) Troponin T NT-Pro-B Natriuret Pep Total Protein Albumin Triglycerides HDL Cholesterol Folate Urine WBC (Auto) Urine Creatinine Urine Total Protein Vancomycin Trough 06/30/19 06/30/19 07/01/19 12:00 18:13 05:49 WBC RBC Hgb Hct MCV MCH MCHC RDW Plt Count Lymph % (Auto) [place] % (Auto) Eos % (Auto) Lymph # [place] # Eos # Seg Neutrophils % Seg Neuts % (Manual) Lymphocytes % (Manual) Monocytes % (Manual) Eosinophils % (Manual) Nucleated RBC % Seg Neutrophils # Seg Neutrophils # Man Lymphocytes # (Manual) Monocytes # (Manual) Eosinophils # (Manual) PT INR APTT Fibrinogen POC ABG pH ABG pH POC ABG pCO2 POC ABG pO2 ABG pO2 ABG HCO3 ABG O2 Saturation ABG Base Excess ABG Hemoglobin Oxyhemoglobin Sodium Potassium Chloride Carbon Dioxide BUN Creatinine Glucose POC Glucose 108 H 114 H 114 H Uric Acid Calcium Phosphorus Magnesium Iron TIBC AST ALT Total Creatine Kinase CK-MB (CK-2) Troponin T NT-Pro-B Natriuret Pep Total Protein Albumin Triglycerides HDL Cholesterol Folate Urine WBC (Auto) Urine Creatinine Urine Total Protein Vancomycin Trough 07/01/19 07/01/19 07/01/19 07:58 07:58 12:06 WBC 11.5 H RBC 3.24 L Hgb 9.0 L Hct 28.4 L MCV MCH MCHC RDW 20.8 H Plt Count Lymph % (Auto) 8.3 L [place] % (Auto) 10.0 H Eos % (Auto) Lymph # 0.9 L [place] # 1.2 H Eos # Seg Neutrophils % 79.4 H Seg Neuts % (Manual) Lymphocytes % (Manual) Monocytes % (Manual) Eosinophils % (Manual) Nucleated RBC % Seg Neutrophils # 9.1 H Seg Neutrophils # Man Lymphocytes # (Manual) Monocytes # (Manual) Eosinophils # (Manual) PT INR APTT Fibrinogen POC ABG pH ABG pH POC ABG pCO2 POC ABG pO2 ABG pO2 ABG HCO3 ABG O2 Saturation ABG Base Excess ABG Hemoglobin Oxyhemoglobin Sodium Potassium Chloride Carbon Dioxide BUN Creatinine 0.4 L Glucose 130 H POC Glucose 133 H Uric Acid Calcium Phosphorus Magnesium Iron TIBC AST ALT Total Creatine Kinase CK-MB (CK-2) Troponin T NT-Pro-B Natriuret Pep Total Protein Albumin Triglycerides HDL Cholesterol Folate Urine WBC (Auto) Urine Creatinine Urine Total Protein Vancomycin Trough 07/02/19 07/02/19 07/02/19 05:54 13:27 13:39 WBC RBC Hgb Hct MCV MCH MCHC RDW Plt Count Lymph % (Auto) Sierra % (Auto) Eos % (Auto) Lymph # [place] # Eos # Seg Neutrophils % Seg Neuts % (Manual) Lymphocytes % (Manual) Monocytes % (Manual) Eosinophils % (Manual) Nucleated RBC % Seg Neutrophils # Seg Neutrophils # Man Lymphocytes # (Manual) Monocytes # (Manual) Eosinophils # (Manual) PT INR APTT Fibrinogen POC ABG pH ABG pH POC ABG pCO2 POC ABG pO2 ABG pO2 ABG HCO3 ABG O2 Saturation ABG Base Excess ABG Hemoglobin Oxyhemoglobin Sodium Potassium Chloride Carbon Dioxide BUN Creatinine Glucose POC Glucose 111 H 123 H 116 H Uric Acid Calcium Phosphorus Magnesium Iron TIBC AST ALT Total Creatine Kinase CK-MB (CK-2) Troponin T NT-Pro-B Natriuret Pep Total Protein Albumin Triglycerides HDL Cholesterol Folate Urine WBC (Auto) Urine Creatinine Urine Total Protein Vancomycin Trough 07/02/19 07/03/19 18:00 06:06 WBC RBC Hgb Hct MCV MCH MCHC RDW Plt Count Lymph % (Auto) [place] % (Auto) Eos % (Auto) Lymph # [place] # Eos # Seg Neutrophils % Seg Neuts % (Manual) Lymphocytes % (Manual) Monocytes % (Manual) Eosinophils % (Manual) Nucleated RBC % Seg Neutrophils # Seg Neutrophils # Man Lymphocytes # (Manual) Monocytes # (Manual) Eosinophils # (Manual) PT INR APTT Fibrinogen POC ABG pH ABG pH POC ABG pCO2 POC ABG pO2 ABG pO2 ABG HCO3 ABG O2 Saturation ABG Base Excess ABG Hemoglobin Oxyhemoglobin Sodium Potassium Chloride Carbon Dioxide BUN Creatinine Glucose POC Glucose 118 H 127 H Uric Acid Calcium Phosphorus Magnesium Iron TIBC AST ALT Total Creatine Kinase CK-MB (CK-2) Troponin T NT-Pro-B Natriuret Pep Total Protein Albumin Triglycerides HDL Cholesterol Folate Urine WBC (Auto) Urine Creatinine Urine Total Protein Vancomycin Trough
[2019-07-04] MEDS: POTASSIUM CHLORIDE 20 MEQ PACKET FEEDTUBE SCH (11:05)
[2019-07-04] MEDS: FERROUS SULFATE 308 MG (62mg Elemental Iron) / 7 ML ELIXIR PO SCH (11:05)
[2019-07-04] MEDS: APIXABAN 2.5 MG TAB PO SCH ×2 (11:05→23:55)
[2019-07-04] MEDS: MULTIVITAMINS 5 ML ORAL LIQUID PO SCH (11:05)
[2019-07-04] MEDS: hydroCHLOROthiazide 25 MG TAB PO SCH (11:06)
[2019-07-04] MEDS: amLODIPine 10 MG TAB PO SCH (11:06)
[2019-07-04] MEDS: FAMOTIDINE 20 MG TAB PO SCH ×2 (11:06→23:55)
[2019-07-04] MEDS: predniSONE 10 MG TAB PO SCH (11:06)
--- NOTE | 2019-07-04 12:47 | Progress Note ---
Assessment and Plan hilario and Plan 34 y/o male with acute hypoxic, hypercapnic respiratory failure now with trach and uncontrolled hypertension. 07/03/19: No change continue to have significant white frothy secretions requiring frequent suctioning. 07/02/19: Patient should not be transferred to the floor. Although his pulm status is stable, he is very high risk for decompensation and if the incident that happened last night, happened on the floor, that may have been his demise. Ok with right arm restraint for now. 07/01/2019: Continue current care. PT/OT. Work on discharge planning. steroids to 5 daily, will likely stop Friday or Friday. Stable but my concern is that if he goes to the floor, he will not get the proper suctioning needed. Will continue IMCU service 06/26/2019: Will discontinue vent from room. patient was placed on vent last night. Not sure why. Will place orders for continued T-piece. Appears he was doing well with no issues. If tolerates being off vent tonight, transition to step down tomorrow. Increase HCTZ to 25 06/25/2019: Continue T-piece today as tolerated. Only rest of vent if needed. If not needed tonight then will discontinue vent from room. Spoke with IR, and they will remove Perm cath today as this could be a cause of fevers. Follow up cultures and ID recs. Will increase Free H2O to [id number]. Change steroids to 10 PO starting tomorrow morning. Added scheduled BP meds. 06/24/2019: Will attempt T-piece later today, if tolerates, then will continue trial indefinitely. PT/OT will need to start seeing him again. Will drop steroids to 10 daily (PO) starting Friday morning. 06/23/2019: PSV all day today and tomorrow. Will start T-piece either tomorrow or Friday. Tolerating Feeds 06/22/2019: Patient scheduled for OR today. Plan as outlined in Dr. Saez's note from yesterday. Discussed with patient again this am. Really appreciate surgery help with this and the promptness of procedure. Will follow up post-op later today. 06/21/2019: Unfortunately re-intubated last week. Will need Trach and Peg, but I doubt peg will happen secondary to his size. Will discuss with surgery and maybe they can just put in a number 6 XLT from the start. I think he will get off the vent relatively quickly and can start to eat. This trach will be indefinite. I have explained this to him. I have not seen his family at the bedside during this admission but Im told they come in the evenings. 06/12/2019: Started HCTZ 50 daily and Labetalol 100 TID. Will increase Labetalol to 200 TID. Already on Clonidine patch. Continue Minoxidil. Will start to wean drip. PT/OT. Feeds through NG now that this is in place. Will need speech re-evaluation. Will order NT suctioning at least [id number] for the next 24 hours. 06/11/2019: Bipap at night and PRN. Na levels are increasing. Agree with D5W. Unable to place DH, several nurses tried. Will ask speech to come by and reassess now that patient is more willing to cooperate. . Continue PT/OT, sat up on side of bed yesterday. Continue IMCU monitoring for now. As stated below, patient was intubated for 37 days. Subjective Date of service: 07/04/19 Principal diagnosis: anemia - LOw PLT Interval history: No change. Continue to have a lot of secretions requiring suctioning frequently. Remain awake and alert. Objective Vital Signs - 12hr 07/04/19 07/04/19 07/04/19 01:01 02:01 03:01 Temperature Pulse Rate 92 H 91 H 100 H Pulse Rate [ From Monitor] Respiratory 26 H 31 H 27 H Rate Blood Pressure 119/62 116/57 116/57 O2 Sat by Pulse 94 95 97 Oximetry O2 Sat by Pulse Oximetry [ Assessment] 07/04/19 07/04/19 07/04/19 04:00 04:01 05:01 Temperature 98.2 F Pulse Rate 98 H 98 H Pulse Rate [ 91 H From Monitor] Respiratory 25 H 18 Rate Blood Pressure 76/51 95/70 O2 Sat by Pulse 98 98 99 Oximetry O2 Sat by Pulse Oximetry [ Assessment] 07/04/19 07/04/19 07/04/19 06:01 07:00 08:00 Temperature 99.7 F H Pulse Rate 96 H 101 H 102 H Pulse Rate [ From Monitor] Respiratory 26 H 29 H 26 H Rate Blood Pressure 95/70 95/70 133/75 O2 Sat by Pulse 99 97 95 Oximetry O2 Sat by Pulse 99 Oximetry [ Assessment] 07/04/19 07/04/19 09:00 10:00 Temperature Pulse Rate 106 H Pulse Rate [ From Monitor] Respiratory 32 H Rate Blood Pressure 133/75 O2 Sat by Pulse 92 99 Oximetry O2 Sat by Pulse Oximetry [ Assessment] Constitutional: other (morbidly obese male, critically ill on vent) Eyes: non-icteric ENT: oropharynx moist Neck: other (extremely large in circumference) Effort: normal Ascultation: Bilateral: diminished breath sounds (secondary to body habitus), rhonchi, other (Upper airway noises due to secretions) Cardiovascular: regular rate and rhythm (no mrg) Gastrointestinal: normoactive bowel sounds, soft, non-tender, other (obese) Integumentary: other (L hand is wrapped) Extremities: no cyanosis, pink and warm, other (1+ generalized edema) Neurologic: normal mental status, non-focal exam Psychiatric: mood appropriate, affect normal CBC and BMP: 07/01/19 07:58 07/01/19 07:58 ABG, PT/INR, D-dimer: ABG POC ABG pH 7.462 (7.35-7.45) H 06/05/19 03:52 ABG pH 7.469 pH Units (7.350-7.450) H 06/23/19 02:00 POC ABG pCO2 39.8 (35-45) 06/05/19 03:52 ABG pCO2 39.4 mm Hg 06/23/19 02:00 POC ABG pO2 86 (80-105) 06/05/19 03:52 ABG pO2 58.7 mm Hg (80.0-90.0) L 06/23/19 02:00 POC ABG HCO3 28.4 (22-26 mml/L) 06/05/19 03:52 POC ABG Total CO2 30 (23-27mmol/L) 06/05/19 03:52 POC ABG O2 Sat 97 06/05/19 03:52 ABG O2 Saturation 94.6 % (95.0-99.0) L 06/23/19 02:00 PT/INR, D-dimer PT 15.4 Sec. (12.2-14.9) H 05/01/19 Unknown INR 1.23 (0.87-1.13) H 05/01/19 Unknown Abnormal lab findings: Abnormal Labs 05/01/19 05/01/19 05/01/19 17:50 19:26 22:36 WBC RBC Hgb Hct MCV MCH MCHC RDW Plt Count Lymph % (Auto) [place] % (Auto) Eos % (Auto) Lymph # [place] # Eos # Seg Neutrophils % Seg Neuts % (Manual) Lymphocytes % (Manual) Monocytes % (Manual) Eosinophils % (Manual) Nucleated RBC % Seg Neutrophils # Seg Neutrophils # Man Lymphocytes # (Manual) Monocytes # (Manual) Eosinophils # (Manual) PT INR APTT Fibrinogen POC ABG pH 7.272 L 7.331 L ABG pH POC ABG pCO2 52.8 H POC ABG pO2 ABG pO2 ABG HCO3 ABG O2 Saturation ABG Base Excess ABG Hemoglobin Oxyhemoglobin Sodium 136 L Potassium 6.5 H* Chloride 97.2 L Carbon Dioxide BUN 60 H Creatinine Glucose 113 H POC Glucose Uric Acid Calcium Phosphorus Magnesium 2.40 H Iron TIBC AST 139 H ALT 154 H Total Creatine Kinase CK-MB (CK-2) Troponin T NT-Pro-B Natriuret Pep Total Protein Albumin 3.8 L Triglycerides HDL Cholesterol Folate Urine WBC (Auto) Urine Creatinine Urine Total Protein Vancomycin Trough 05/01/19 05/01/19 05/01/19 Unknown Unknown Unknown WBC 16.1 H RBC Hgb Hct MCV MCH MCHC RDW 17.2 H Plt Count Lymph % (Auto) [place] % (Auto) 9.6 H Eos % (Auto) Lymph # [place] # 1.5 H Eos # Seg Neutrophils % 73.0 H Seg Neuts % (Manual) Lymphocytes % (Manual) Monocytes % (Manual) Eosinophils % (Manual) Nucleated RBC % Seg Neutrophils # 11.7 H Seg Neutrophils # Man Lymphocytes # (Manual) Monocytes # (Manual) Eosinophils # (Manual) PT 15.4 H INR 1.23 H APTT 22.7 L Fibrinogen POC ABG pH ABG pH POC ABG pCO2 POC ABG pO2 ABG pO2 ABG HCO3 ABG O2 Saturation ABG Base Excess ABG Hemoglobin Oxyhemoglobin Sodium Potassium Chloride Carbon Dioxide BUN Creatinine Glucose POC Glucose Uric Acid Calcium Phosphorus Magnesium Iron TIBC AST ALT Total Creatine Kinase CK-MB (CK-2) Troponin T NT-Pro-B Natriuret Pep 6831 H Total Protein Albumin Triglycerides HDL Cholesterol Folate Urine WBC (Auto) Urine Creatinine Urine Total Protein Vancomycin Trough 05/01/19 05/02/19 05/02/19 Unknown 00:06 00:06 WBC RBC Hgb Hct MCV MCH MCHC RDW Plt Count Lymph % (Auto) [place] % (Auto) Eos % (Auto) Lymph # [place] # Eos # Seg Neutrophils % Seg Neuts % (Manual) Lymphocytes % (Manual) Monocytes % (Manual) Eosinophils % (Manual) Nucleated RBC % Seg Neutrophils # Seg Neutrophils # Man Lymphocytes # (Manual) Monocytes # (Manual) Eosinophils # (Manual) PT INR APTT Fibrinogen POC ABG pH ABG pH POC ABG pCO2 POC ABG pO2 ABG pO2 ABG HCO3 ABG O2 Saturation ABG Base Excess ABG Hemoglobin Oxyhemoglobin Sodium Potassium Chloride Carbon Dioxide BUN Creatinine Glucose POC Glucose Uric Acid Calcium Phosphorus 4.90 H Magnesium Iron TIBC AST ALT Total Creatine Kinase 226 H CK-MB (CK-2) 5.7 H Troponin T 0.044 H NT-Pro-B Natriuret Pep Total Protein Albumin Triglycerides 182 H HDL Cholesterol 18 L Folate Urine WBC (Auto) Urine Creatinine Urine Total Protein Vancomycin Trough 05/02/19 05/02/19 05/02/19 02:08 04:40 04:41 WBC 17.6 H RBC Hgb Hct MCV MCH 27 L MCHC RDW 17.4 H Plt Count Lymph % (Auto) 10.2 L [place] % (Auto) 11.0 H Eos % (Auto) Lymph # [place] # 1.9 H Eos # Seg Neutrophils % 78.0 H Seg Neuts % (Manual) Lymphocytes % (Manual) Monocytes % (Manual) Eosinophils % (Manual) Nucleated RBC % Seg Neutrophils # 13.8 H Seg Neutrophils # Man Lymphocytes # (Manual) Monocytes # (Manual) Eosinophils # (Manual) PT INR APTT Fibrinogen POC ABG pH ABG pH POC ABG pCO2 46.8 H POC ABG pO2 63 L ABG pO2 ABG HCO3 ABG O2 Saturation ABG Base Excess ABG Hemoglobin Oxyhemoglobin Sodium Potassium Chloride 96.3 L Carbon Dioxide BUN 63 H Creatinine 1.7 H Glucose POC Glucose Uric Acid Calcium Phosphorus Magnesium Iron TIBC AST ALT Total Creatine Kinase CK-MB (CK-2) Troponin T NT-Pro-B Natriuret Pep Total Protein Albumin Triglycerides HDL Cholesterol Folate Urine WBC (Auto) Urine Creatinine Urine Total Protein Vancomycin Trough 05/02/19 05/02/1905/02/19 04:41 04:41 16:05 WBC RBC Hgb Hct MCV MCH MCHC RDW Plt Count Lymph % (Auto) [place] % (Auto) Eos % (Auto) Lymph # [place] # Eos # Seg Neutrophils % Seg Neuts % (Manual) Lymphocytes % (Manual) Monocytes % (Manual) Eosinophils % (Manual) Nucleated RBC % Seg Neutrophils # Seg Neutrophils # Man Lymphocytes # (Manual) Monocytes # (Manual) Eosinophils # (Manual) PT INR APTT Fibrinogen POC ABG pH ABG pH POC ABG pCO2 POC ABG pO2 ABG pO2 66.6 L ABG HCO3 31.9 H ABG O2 Saturation 92.5 L ABG Base Excess 5.8 H ABG Hemoglobin 13.3 L Oxyhemoglobin 90.6 L Sodium Potassium Chloride 97.2 L Carbon Dioxide BUN 61 H Creatinine 1.8 H Glucose POC Glucose Uric Acid Calcium Phosphorus Magnesium Iron TIBC AST ALT Total Creatine Kinase CK-MB (CK-2) 5.2 H Troponin T 0.067 H D NT-Pro-B Natriuret Pep Total Protein Albumin Triglycerides HDL Cholesterol Folate Urine WBC (Auto) Urine Creatinine Urine Total Protein Vancomycin Trough 05/02/19 05/03/19 05/03/19 20:39 04:35 05:05 WBC 11.8 H RBC Hgb Hct MCV MCH 27 L MCHC 31 L RDW 17.2 H Plt Count Lymph % (Auto) [place] % (Auto) Eos % (Auto) Lymph # [place] # Eos # Seg Neutrophils % Seg Neuts % (Manual) Lymphocytes % (Manual) Monocytes % (Manual) Eosinophils % (Manual) Nucleated RBC % Seg Neutrophils # Seg Neutrophils # Man Lymphocytes # (Manual) Monocytes # (Manual) Eosinophils # (Manual) PT INR APTT Fibrinogen POC ABG pH ABG pH POC ABG pCO2 53.6 H 54.0 H POC ABG pO2 55 L 63 L ABG pO2 ABG HCO3 ABG O2 Saturation ABG Base Excess ABG Hemoglobin Oxyhemoglobin Sodium Potassium Chloride Carbon Dioxide BUN Creatinine Glucose POC Glucose Uric Acid Calcium Phosphorus Magnesium Iron TIBC AST ALT Total Creatine Kinase CK-MB (CK-2) Troponin T NT-Pro-B Natriuret Pep Total Protein Albumin Triglycerides HDL Cholesterol Folate Urine WBC (Auto) Urine Creatinine Urine Total Protein Vancomycin Trough 05/03/19 05/03/19 05/03/19 05:05 10:55 16:48 WBC RBC Hgb Hct MCV MCH MCHC RDW Plt Count Lymph % (Auto) [place] % (Auto) Eos % (Auto) Lymph # [place] # Eos # Seg Neutrophils % Seg Neuts % (Manual) Lymphocytes % (Manual) Monocytes % (Manual) Eosinophils % (Manual) Nucleated RBC % Seg Neutrophils # Seg Neutrophils # Man Lymphocytes # (Manual) Monocytes # (Manual) Eosinophils # (Manual) PT INR APTT Fibrinogen POC ABG pH 7.604 H ABG pH POC ABG pCO2 POC ABG pO2 58 L ABG pO2 ABG HCO3 ABG O2 Saturation ABG Base Excess ABG Hemoglobin Oxyhemoglobin Sodium Potassium Chloride Carbon Dioxide BUN 52 H Creatinine 1.9 H Glucose 103 H POC Glucose Uric Acid Calcium Phosphorus Magnesium Iron TIBC AST ALT Total Creatine Kinase CK-MB (CK-2) Troponin T NT-Pro-B Natriuret Pep Total Protein Albumin Triglycerides HDL Cholesterol Folate Urine WBC (Auto) 33.0 H Urine Creatinine Urine Total Protein Vancomycin Trough 05/04/19 05/04/19 05/04/19 04:49 06:50 06:50 WBC 16.0 H RBC Hgb Hct MCV MCH 27 L MCHC 31 L RDW 17.8 H Plt Count Lymph % (Auto) [place] % (Auto) Eos % (Auto) Lymph # [place] # Eos # Seg Neutrophils % Seg Neuts % (Manual) Lymphocytes % (Manual) Monocytes % (Manual) Eosinophils % (Manual) Nucleated RBC % Seg Neutrophils # Seg Neutrophils # Man Lymphocytes # (Manual) Monocytes # (Manual) Eosinophils # (Manual) PT INR APTT Fibrinogen POC ABG pH 7.273 L ABG pH POC ABG pCO2 POC ABG pO2 ABG pO2 ABG HCO3 ABG O2 Saturation ABG Base Excess ABG Hemoglobin Oxyhemoglobin Sodium 148 H Potassium 5.5 H Chloride Carbon Dioxide BUN 53 H Creatinine 3.3 H D Glucose 106 H POC Glucose Uric Acid Calcium 8.3 L Phosphorus Magnesium Iron TIBC AST ALT Total Creatine Kinase CK-MB (CK-2) Troponin T NT-Pro-B Natriuret Pep Total Protein Albumin Triglycerides HDL Cholesterol Folate Urine WBC (Auto) Urine Creatinine Urine Total Protein Vancomycin Trough 05/05/19 05/05/19 05/05/19 00:05 04:30 05:00 WBC RBC Hgb Hct MCV MCH MCHC RDW Plt Count Lymph % (Auto) [place] % (Auto) Eos % (Auto) Lymph # [place] # Eos # Seg Neutrophils % Seg Neuts % (Manual) Lymphocytes % (Manual) Monocytes % (Manual) Eosinophils % (Manual) Nucleated RBC % Seg Neutrophils # Seg Neutrophils # Man Lymphocytes # (Manual) Monocytes # (Manual) Eosinophils # (Manual) PT INR APTT Fibrinogen POC ABG pH 7.225 L ABG pH POC ABG pCO2 > 70 H POC ABG pO2 ABG pO2 ABG HCO3 ABG O2 Saturation ABG Base Excess ABG Hemoglobin Oxyhemoglobin Sodium 151 H Potassium 5.1 H Chloride Carbon Dioxide BUN 64 H Creatinine 3.5 H Glucose 117 H POC Glucose 141 H Uric Acid Calcium 7.5 L Phosphorus Magnesium Iron TIBC AST 93 H ALT 65 H Total Creatine Kinase CK-MB (CK-2) Troponin T NT-Pro-B Natriuret Pep Total Protein Albumin 2.9 L Triglycerides HDL Cholesterol Folate Urine WBC (Auto) Urine Creatinine Urine Total Protein Vancomycin Trough 05/05/19 05/05/19 05/05/19 05:00 12:02 17:46 WBC 12.0 H RBC Hgb 11.3 L Hct MCV MCH 27 L MCHC 30 L RDW 18.4 H Plt Count Lymph % (Auto) 7.9 L [place] % (Auto) 10.2 H Eos % (Auto) Lymph # 1.0 L [place] # 1.2 H Eos # Seg Neutrophils % 80.8 H Seg Neuts % (Manual) Lymphocytes % (Manual) Monocytes % (Manual) Eosinophils % (Manual) Nucleated RBC % Seg Neutrophils # 9.7 H Seg Neutrophils # Man Lymphocytes # (Manual) Monocytes # (Manual) Eosinophils # (Manual) PT INR APTT Fibrinogen POC ABG pH ABG pH POC ABG pCO2 POC ABG pO2 ABG pO2 ABG HCO3 ABG O2 Saturation ABG Base Excess ABG Hemoglobin Oxyhemoglobin Sodium Potassium Chloride Carbon Dioxide BUN Creatinine Glucose POC Glucose 125 H 112 H Uric Acid Calcium Phosphorus Magnesium Iron TIBC AST ALT Total Creatine Kinase CK-MB (CK-2) Troponin T NT-Pro-B Natriuret Pep Total Protein Albumin Triglycerides HDL Cholesterol Folate Urine WBC (Auto) Urine Creatinine Urine Total Protein Vancomycin Trough 05/05/19 05/06/19 05/06/19 23:42 03:58 04:45 WBC 11.4 H RBC Hgb 10.7 L Hct 34.2 L MCV MCH 27 L MCHC 31 L RDW 16.9 H Plt Count Lymph % (Auto) [place] % (Auto) Eos % (Auto) Lymph # [place] # Eos # Seg Neutrophils % Seg Neuts % (Manual) Lymphocytes % (Manual) Monocytes % (Manual) Eosinophils % (Manual) Nucleated RBC % Seg Neutrophils # Seg Neutrophils # Man Lymphocytes # (Manual) Monocytes # (Manual) Eosinophils # (Manual) PT INR APTT Fibrinogen POC ABG pH ABG pH POC ABG pCO2 62.4 H POC ABG pO2 111 H ABG pO2 ABG HCO3 ABG O2 Saturation ABG Base Excess ABG Hemoglobin Oxyhemoglobin Sodium Potassium Chloride Carbon Dioxide BUN Creatinine Glucose POC Glucose 128 H Uric Acid Calcium Phosphorus Magnesium Iron TIBC AST ALT Total Creatine Kinase CK-MB (CK-2) Troponin T NT-Pro-B Natriuret Pep Total Protein Albumin Triglycerides HDL Cholesterol Folate Urine WBC (Auto) Urine Creatinine Urine Total Protein Vancomycin Trough 05/06/19 05/06/19 05/06/19 04:45 05:33 12:30 WBC RBC Hgb Hct MCV MCH MCHC RDW Plt Count Lymph % (Auto) [place] % (Auto) Eos % (Auto) Lymph # [place] # Eos # Seg Neutrophils % Seg Neuts % (Manual) Lymphocytes % (Manual) Monocytes % (Manual) Eosinophils % (Manual) Nucleated RBC % Seg Neutrophils # Seg Neutrophils # Man Lymphocytes # (Manual) Monocytes # (Manual) Eosinophils # (Manual) PT INR APTT Fibrinogen POC ABG pH ABG pH POC ABG pCO2 POC ABG pO2 ABG pO2 ABG HCO3 ABG O2 Saturation ABG Base Excess ABG Hemoglobin Oxyhemoglobin Sodium 149 H Potassium Chloride Carbon Dioxide 31 H BUN 67 H Creatinine 3.2 H Glucose 125 H POC Glucose 117 H 116 H Uric Acid Calcium 7.5 L Phosphorus Magnesium Iron TIBC AST ALT Total Creatine Kinase CK-MB (CK-2) Troponin T NT-Pro-B Natriuret Pep Total Protein Albumin Triglycerides HDL Cholesterol Folate Urine WBC (Auto) Urine Creatinine Urine Total Protein Vancomycin Trough 05/06/19 05/06/19 05/07/19 18:34 23:16 05:22 WBC RBC Hgb Hct MCV MCH MCHC RDW Plt Count Lymph % (Auto) [place] % (Auto) Eos % (Auto) Lymph # [place] # Eos # Seg Neutrophils % Seg Neuts % (Manual) Lymphocytes % (Manual) Monocytes % (Manual) Eosinophils % (Manual) Nucleated RBC % Seg Neutrophils # Seg Neutrophils # Man Lymphocytes # (Manual) Monocytes # (Manual) Eosinophils # (Manual) PT INR APTT Fibrinogen POC ABG pH ABG pH POC ABG pCO2 POC ABG pO2 ABG pO2 ABG HCO3 ABG O2 Saturation ABG Base Excess ABG Hemoglobin Oxyhemoglobin Sodium Potassium Chloride Carbon Dioxide BUN Creatinine Glucose POC Glucose 128 H 143 H 166 H Uric Acid Calcium Phosphorus Magnesium Iron TIBC AST ALT Total Creatine Kinase CK-MB (CK-2) Troponin T NT-Pro-B Natriuret Pep Total Protein Albumin Triglycerides HDL Cholesterol Folate Urine WBC (Auto) Urine Creatinine Urine Total Protein Vancomycin Trough 05/07/19 05/07/19 05/07/19 06:33 07:03 09:35 WBC RBC Hgb Hct MCV MCH MCHC RDW Plt Count Lymph % (Auto) [place] % (Auto) Eos % (Auto) Lymph # [place] # Eos # Seg Neutrophils % Seg Neuts % (Manual) Lymphocytes % (Manual) Monocytes % (Manual) Eosinophils % (Manual) Nucleated RBC % Seg Neutrophils # Seg Neutrophils # Man Lymphocytes # (Manual) Monocytes # (Manual) Eosinophils # (Manual) PT INR APTT Fibrinogen POC ABG pH 7.263 L 7.288 L ABG pH POC ABG pCO2 POC ABG pO2 51 L 56 L ABG pO2 ABG HCO3 ABG O2 Saturation ABG Base Excess ABG Hemoglobin Oxyhemoglobin Sodium Potassium Chloride Carbon Dioxide BUN 76 H Creatinine 3.2 H Glucose 147 H POC Glucose Uric Acid Calcium 7.9 L Phosphorus Magnesium Iron TIBC AST ALT Total Creatine Kinase CK-MB (CK-2) Troponin T NT-Pro-B Natriuret Pep Total Protein Albumin Triglycerides HDL Cholesterol Folate Urine WBC (Auto) Urine Creatinine Urine Total Protein Vancomycin Trough 05/07/19 05/07/19 05/07/19 09:35 12:17 13:45 WBC 13.4 H RBC Hgb 11.6 L Hct MCV MCH 27 L MCHC 31 L RDW 17.5 H Plt Count Lymph % (Auto) [place] % (Auto) Eos % (Auto) Lymph # [place] # Eos # Seg Neutrophils % Seg Neuts % (Manual) Lymphocytes % (Manual) Monocytes % (Manual) Eosinophils % (Manual) Nucleated RBC % Seg Neutrophils # Seg Neutrophils # Man Lymphocytes # (Manual) Monocytes # (Manual) Eosinophils # (Manual) PT INR APTT Fibrinogen POC ABG pH ABG pH POC ABG pCO2 POC ABG pO2 ABG pO2 ABG HCO3 ABG O2 Saturation ABG Base Excess ABG Hemoglobin Oxyhemoglobin Sodium Potassium Chloride Carbon Dioxide BUN Creatinine Glucose POC Glucose 130 H Uric Acid 18.0 H Calcium Phosphorus Magnesium Iron TIBC AST ALT Total Creatine Kinase CK-MB (CK-2) Troponin T NT-Pro-B Natriuret Pep Total Protein Albumin Triglycerides HDL Cholesterol Folate Urine WBC (Auto) Urine Creatinine Urine Total Protein Vancomycin Trough 05/07/19 05/07/19 05/08/19 17:39 22:40 05:06 WBC RBC Hgb Hct MCV MCH MCHC RDW Plt Count Lymph % (Auto) [place] % (Auto) Eos % (Auto) Lymph # [place] # Eos # Seg Neutrophils % Seg Neuts % (Manual) Lymphocytes % (Manual) Monocytes % (Manual) Eosinophils % (Manual) Nucleated RBC % Seg Neutrophils # Seg Neutrophils # Man Lymphocytes # (Manual) Monocytes # (Manual) Eosinophils # (Manual) PT INR APTT Fibrinogen POC ABG pH ABG pH POC ABG pCO2 POC ABG pO2 ABG pO2 ABG HCO3 ABG O2 Saturation ABG Base Excess ABG Hemoglobin Oxyhemoglobin Sodium Potassium Chloride Carbon Dioxide BUN Creatinine Glucose POC Glucose 116 H 148 H Uric Acid Calcium Phosphorus Magnesium Iron TIBC AST ALT Total Creatine Kinase CK-MB (CK-2) Troponin T NT-Pro-B Natriuret Pep Total Protein Albumin Triglycerides HDL Cholesterol Folate Urine WBC (Auto) Urine Creatinine 292.8 H Urine Total Protein 269 H Vancomycin Trough 05/08/19 05/08/19 05/08/19 05:32 11:28 13:48 WBC RBC Hgb Hct MCV MCH MCHC RDW Plt Count Lymph % (Auto) [place] % (Auto) Eos % (Auto) Lymph # [place] # Eos # Seg Neutrophils % Seg Neuts % (Manual) Lymphocytes % (Manual) Monocytes % (Manual) Eosinophils % (Manual) Nucleated RBC % Seg Neutrophils # Seg Neutrophils # Man Lymphocytes # (Manual) Monocytes # (Manual) Eosinophils # (Manual) PT INR APTT Fibrinogen POC ABG pH ABG pH POC ABG pCO2 45.4 H POC ABG pO2 64 L ABG pO2 ABG HCO3 ABG O2 Saturation ABG Base Excess ABG Hemoglobin Oxyhemoglobin Sodium Potassium Chloride Carbon Dioxide BUN 73 H Creatinine 2.7 H Glucose 127 H POC Glucose 107 H Uric Acid Calcium 7.6 L Phosphorus Magnesium Iron TIBC AST ALT Total Creatine Kinase CK-MB (CK-2) Troponin T NT-Pro-B Natriuret Pep Total Protein Albumin Triglycerides HDL Cholesterol Folate Urine WBC (Auto) Urine Creatinine Urine Total Protein Vancomycin Trough 05/08/19 05/09/19 05/09/19 17:48 04:50 04:53 WBC RBC 3.07 L Hgb 8.5 L D Hct 29.3 L D MCV 96 H MCH MCHC 29 L RDW 18.1 H Plt Count Lymph % (Auto) [place] % (Auto) Eos % (Auto) Lymph # [place] # Eos # Seg Neutrophils % Seg Neuts % (Manual) Lymphocytes % (Manual) Monocytes % (Manual) Eosinophils % (Manual) Nucleated RBC % Seg Neutrophils # Seg Neutrophils # Man Lymphocytes # (Manual) Monocytes # (Manual) Eosinophils # (Manual) PT INR APTT Fibrinogen POC ABG pH 7.316 L ABG pH POC ABG pCO2 66.0 H POC ABG pO2 69 L ABG pO2 ABG HCO3 ABG O2 Saturation ABG Base Excess ABG Hemoglobin Oxyhemoglobin Sodium Potassium Chloride Carbon Dioxide BUN Creatinine Glucose POC Glucose 155 H Uric Acid Calcium Phosphorus Magnesium Iron TIBC AST ALT Total Creatine Kinase CK-MB (CK-2) Troponin T NT-Pro-B Natriuret Pep Total Protein Albumin Triglycerides HDL Cholesterol Folate Urine WBC (Auto) Urine Creatinine Urine Total Protein Vancomycin Trough 05/09/19 05/09/19 05/09/19 05:46 07:24 12:10 WBC RBC Hgb Hct MCV MCH MCHC RDW Plt Count Lymph % (Auto) [place] % (Auto) Eos % (Auto) Lymph # [place] # Eos # Seg Neutrophils % Seg Neuts % (Manual) Lymphocytes % (Manual) Monocytes % (Manual) Eosinophils % (Manual) Nucleated RBC % Seg Neutrophils # Seg Neutrophils # Man Lymphocytes # (Manual) Monocytes # (Manual) Eosinophils # (Manual) PT INR APTT Fibrinogen POC ABG pH ABG pH POC ABG pCO2 POC ABG pO2 ABG pO2 ABG HCO3 ABG O2 Saturation ABG Base Excess ABG Hemoglobin Oxyhemoglobin Sodium Potassium Chloride Carbon Dioxide BUN 73 H Creatinine 2.4 H Glucose 153 H POC Glucose 123 H 148 H Uric Acid Calcium 8.2 L Phosphorus Magnesium Iron TIBC AST 45 H ALT Total Creatine Kinase CK-MB (CK-2) Troponin T NT-Pro-B Natriuret Pep Total Protein 6.0 L Albumin 1.9 L Triglycerides HDL Cholesterol Folate Urine WBC (Auto) Urine Creatinine Urine Total Protein Vancomycin Trough 05/09/19 05/09/19 05/10/19 18:23 23:26 04:52 WBC RBC Hgb Hct MCV MCH MCHC RDW Plt Count Lymph % (Auto) [place] % (Auto) Eos % (Auto) Lymph # [place] # Eos # Seg Neutrophils % Seg Neuts % (Manual) Lymphocytes % (Manual) Monocytes % (Manual) Eosinophils % (Manual) Nucleated RBC % Seg Neutrophils # Seg Neutrophils # Man Lymphocytes # (Manual) Monocytes # (Manual) Eosinophils # (Manual) PT INR APTT Fibrinogen POC ABG pH 7.305 L ABG pH POC ABG pCO2 62.6 H POC ABG pO2 ABG pO2 ABG HCO3 ABG O2 Saturation ABG Base Excess ABG Hemoglobin Oxyhemoglobin Sodium Potassium Chloride Carbon Dioxide BUN Creatinine Glucose POC Glucose 147 H 121 H Uric Acid Calcium Phosphorus Magnesium Iron TIBC AST ALT Total Creatine Kinase CK-MB (CK-2) Troponin T NT-Pro-B Natriuret Pep Total Protein Albumin Triglycerides HDL Cholesterol Folate Urine WBC (Auto) Urine Creatinine Urine Total Protein Vancomycin Trough 05/10/19 05/10/19 05/10/19 05:00 05:00 05:50 WBC RBC Hgb 10.3 L Hct 33.7 L MCV MCH 27 L MCHC 31 L RDW 17.0 H Plt Count Lymph % (Auto) [place] % (Auto) Eos % (Auto) Lymph # [place] # Eos # Seg Neutrophils % Seg Neuts % (Manual) Lymphocytes % (Manual) Monocytes % (Manual) Eosinophils % (Manual) Nucleated RBC % Seg Neutrophils # Seg Neutrophils # Man Lymphocytes # (Manual) Monocytes # (Manual) Eosinophils # (Manual) PT INR APTT Fibrinogen POC ABG pH ABG pH POC ABG pCO2 POC ABG pO2 ABG pO2 ABG HCO3 ABG O2 Saturation ABG Base Excess ABG Hemoglobin Oxyhemoglobin Sodium 147 H Potassium Chloride Carbon Dioxide BUN 70 H Creatinine 2.6 H Glucose 155 H POC Glucose 158 H Uric Acid Calcium 8.2 L Phosphorus Magnesium Iron TIBC AST ALT Total Creatine Kinase CK-MB (CK-2) Troponin T NT-Pro-B Natriuret Pep Total Protein 6.1 L Albumin 2.5 L Triglycerides HDL Cholesterol Folate Urine WBC (Auto) Urine Creatinine Urine Total Protein Vancomycin Trough 05/10/19 05/11/19 05/11/19 13:14 07:26 11:40 WBC RBC Hgb Hct MCV MCH MCHC RDW Plt Count Lymph % (Auto) [place] % (Auto) Eos % (Auto) Lymph # [place] # Eos # Seg Neutrophils % Seg Neuts % (Manual) Lymphocytes % (Manual) Monocytes % (Manual) Eosinophils % (Manual) Nucleated RBC % Seg Neutrophils # Seg Neutrophils # Man Lymphocytes # (Manual) Monocytes # (Manual) Eosinophils # (Manual) PT INR APTT Fibrinogen POC ABG pH ABG pH POC ABG pCO2 48.0 H POC ABG pO2 58 L ABG pO2 ABG HCO3 ABG O2 Saturation ABG Base Excess ABG Hemoglobin Oxyhemoglobin Sodium 147 H Potassium Chloride 107.2 H Carbon Dioxide BUN 67 H Creatinine 2.6 H Glucose 121 H POC Glucose 159 H Uric Acid Calcium Phosphorus Magnesium Iron TIBC AST ALT Total Creatine Kinase CK-MB (CK-2) Troponin T NT-Pro-B Natriuret Pep Total Protein Albumin Triglycerides HDL Cholesterol Folate Urine WBC (Auto) Urine Creatinine Urine Total Protein Vancomycin Trough 05/11/19 05/11/19 05/12/19 18:13 23:46 04:40 WBC RBC Hgb Hct MCV MCH MCHC RDW Plt Count Lymph % (Auto) [place] % (Auto) Eos % (Auto) Lymph # [place] # Eos # Seg Neutrophils % Seg Neuts % (Manual) Lymphocytes % (Manual) Monocytes % (Manual) Eosinophils % (Manual) Nucleated RBC % Seg Neutrophils # Seg Neutrophils # Man Lymphocytes # (Manual) Monocytes # (Manual) Eosinophils # (Manual) PT INR APTT Fibrinogen POC ABG pH ABG pH 7.264 L POC ABG pCO2 POC ABG pO2 ABG pO2 66.8 L ABG HCO3 31.0 H ABG O2 Saturation 92.0 L ABG Base Excess ABG Hemoglobin 10.3 L Oxyhemoglobin 90.1 L Sodium Potassium Chloride Carbon Dioxide BUN Creatinine Glucose POC Glucose 120 H 121 H Uric Acid Calcium Phosphorus Magnesium Iron TIBC AST ALT Total Creatine Kinase CK-MB (CK-2) Troponin T NT-Pro-B Natriuret Pep Total Protein Albumin Triglycerides HDL Cholesterol Folate Urine WBC (Auto) Urine Creatinine Urine Total Protein Vancomycin Trough 05/12/19 05/12/19 05/12/19 04:45 04:45 11:14 WBC RBC Hgb 10.2 L Hct 32.4 L MCV MCH MCHC 31 L RDW 17.2 H Plt Count Lymph % (Auto) [place] % (Auto) Eos % (Auto) Lymph # [place] # Eos # Seg Neutrophils % Seg Neuts % (Manual) Lymphocytes % (Manual) Monocytes % (Manual) Eosinophils % (Manual) Nucleated RBC % Seg Neutrophils # Seg Neutrophils # Man Lymphocytes # (Manual) Monocytes # (Manual) Eosinophils # (Manual) PT INR APTT Fibrinogen POC ABG pH 7.284 L ABG pH POC ABG pCO2 67.8 H POC ABG pO2 ABG pO2 ABG HCO3 ABG O2 Saturation ABG Base Excess ABG Hemoglobin Oxyhemoglobin Sodium Potassium Chloride Carbon Dioxide BUN 63 H Creatinine 2.4 H Glucose 110 H POC Glucose Uric Acid Calcium Phosphorus Magnesium Iron TIBC AST ALT Total Creatine Kinase CK-MB (CK-2) Troponin T NT-Pro-B Natriuret Pep Total Protein Albumin Triglycerides HDL Cholesterol Folate Urine WBC (Auto) Urine Creatinine Urine Total Protein Vancomycin Trough 05/12/19 05/12/19 05/13/19 11:44 23:11 04:30 WBC RBC Hgb Hct MCV MCH MCHC RDW Plt Count Lymph % (Auto) [place] % (Auto) Eos % (Auto) Lymph # [place] # Eos # Seg Neutrophils % Seg Neuts % (Manual) Lymphocytes % (Manual) Monocytes % (Manual) Eosinophils % (Manual) Nucleated RBC % Seg Neutrophils # Seg Neutrophils # Man Lymphocytes # (Manual) Monocytes # (Manual) Eosinophils # (Manual) PT INR APTT Fibrinogen POC ABG pH ABG pH 7.288 L POC ABG pCO2 POC ABG pO2 ABG pO2 109.7 H ABG HCO3 30.9 H ABG O2 Saturation ABG Base Excess 3.2 H ABG Hemoglobin 9.6 L Oxyhemoglobin Sodium Potassium Chloride Carbon Dioxide BUN Creatinine Glucose POC Glucose 126 H 147 H Uric Acid Calcium Phosphorus Magnesium Iron TIBC AST ALT Total Creatine Kinase CK-MB (CK-2) Troponin T NT-Pro-B Natriuret Pep Total Protein Albumin Triglycerides HDL Cholesterol Folate Urine WBC (Auto) Urine Creatinine Urine Total Protein Vancomycin Trough 05/13/19 05/13/19 05/14/19 06:27 11:58 04:00 WBC RBC 3.16 L Hgb 9.3 L Hct 27.9 L MCV MCH MCHC RDW 17.1 H Plt Count Lymph % (Auto) [place] % (Auto) Eos % (Auto) Lymph # [place] # Eos # Seg Neutrophils % Seg Neuts % (Manual) Lymphocytes % (Manual) Monocytes % (Manual) Eosinophils % (Manual) Nucleated RBC % Seg Neutrophils # Seg Neutrophils # Man Lymphocytes # (Manual) Monocytes # (Manual) Eosinophils # (Manual) PT INR APTT Fibrinogen POC ABG pH ABG pH POC ABG pCO2 POC ABG pO2 ABG pO2 ABG HCO3 ABG O2 Saturation ABG Base Excess ABG Hemoglobin Oxyhemoglobin Sodium Potassium Chloride Carbon Dioxide BUN Creatinine Glucose POC Glucose 113 H 130 H Uric Acid Calcium Phosphorus Magnesium Iron TIBC AST ALT Total Creatine Kinase CK-MB (CK-2) Troponin T NT-Pro-B Natriuret Pep Total Protein Albumin Triglycerides HDL Cholesterol Folate Urine WBC (Auto) Urine Creatinine Urine Total Protein Vancomycin Trough 05/14/19 05/14/19 05/14/19 04:00 04:34 05:32 WBC RBC Hgb Hct MCV MCH MCHC RDW Plt Count Lymph % (Auto) [place] % (Auto) Eos % (Auto) Lymph # [place] # Eos # Seg Neutrophils % Seg Neuts % (Manual) Lymphocytes % (Manual) Monocytes % (Manual) Eosinophils % (Manual) Nucleated RBC % Seg Neutrophils # Seg Neutrophils # Man Lymphocytes # (Manual) Monocytes # (Manual) Eosinophils # (Manual) PT INR APTT Fibrinogen POC ABG pH 7.328 L ABG pH POC ABG pCO2 61.7 H POC ABG pO2 ABG pO2 ABG HCO3 ABG O2 Saturation ABG Base Excess ABG Hemoglobin Oxyhemoglobin Sodium 135 L D Potassium Chloride Carbon Dioxide BUN 57 H Creatinine 2.2 H Glucose 115 H POC Glucose 115 H Uric Acid Calcium 8.1 L Phosphorus Magnesium Iron TIBC AST ALT Total Creatine Kinase CK-MB (CK-2) Troponin T NT-Pro-B Natriuret Pep Total Protein Albumin Triglycerides HDL Cholesterol Folate Urine WBC (Auto) Urine Creatinine Urine Total Protein Vancomycin Trough 05/14/19 05/15/19 05/15/19 12:11 05:10 05:24 WBC RBC Hgb Hct MCV MCH MCHC RDW Plt Count Lymph % (Auto) [place] % (Auto) Eos % (Auto) Lymph # [place] # Eos # Seg Neutrophils % Seg Neuts % (Manual) Lymphocytes % (Manual) Monocytes % (Manual) Eosinophils % (Manual) Nucleated RBC % Seg Neutrophils # Seg Neutrophils # Man Lymphocytes # (Manual) Monocytes # (Manual) Eosinophils # (Manual) PT INR APTT Fibrinogen POC ABG pH ABG pH 7.342 L POC ABG pCO2 POC ABG pO2 ABG pO2 79.1 L ABG HCO3 28.2 H ABG O2 Saturation ABG Base Excess ABG Hemoglobin 7.0 L Oxyhemoglobin 94.4 L Sodium Potassium Chloride Carbon Dioxide BUN Creatinine Glucose POC Glucose 110 H 116 H Uric Acid Calcium Phosphorus Magnesium Iron TIBC AST ALT Total Creatine Kinase CK-MB (CK-2) Troponin T NT-Pro-B Natriuret Pep Total Protein Albumin Triglycerides HDL Cholesterol Folate Urine WBC (Auto) Urine Creatinine Urine Total Protein Vancomycin Trough 05/15/19 05/15/19 05/16/19 09:00 18:12 04:50 WBC RBC Hgb Hct MCV MCH MCHC RDW Plt Count Lymph % (Auto) [place] % (Auto) Eos % (Auto) Lymph # [place] # Eos # Seg Neutrophils % Seg Neuts % (Manual) Lymphocytes % (Manual) Monocytes % (Manual) Eosinophils % (Manual) Nucleated RBC % Seg Neutrophils # Seg Neutrophils # Man Lymphocytes # (Manual) Monocytes # (Manual) Eosinophils # (Manual) PT INR APTT Fibrinogen POC ABG pH ABG pH 7.250 L POC ABG pCO2 POC ABG pO2 ABG pO2 76.4 L ABG HCO3 ABG O2 Saturation 94.6 L ABG Base Excess -3.1 L ABG Hemoglobin 9.7 L Oxyhemoglobin 92.4 L Sodium Potassium Chloride Carbon Dioxide BUN Creatinine Glucose POC Glucose 110 H Uric Acid Calcium Phosphorus Magnesium Iron TIBC AST ALT Total Creatine Kinase CK-MB (CK-2) Troponin T NT-Pro-B Natriuret Pep Total Protein Albumin Triglycerides HDL Cholesterol Folate Urine WBC (Auto) Urine Creatinine Urine Total Protein Vancomycin Trough 20.5 H 05/16/19 05/16/19 05/17/19 05:50 05:50 04:20 WBC RBC 3.36 L 3.44 L Hgb 9.4 L 9.3 L Hct 29.1 L 29.7 L MCV MCH 27 L MCHC 31 L RDW 17.6 H 17.6 H Plt Count Lymph % (Auto) [place] % (Auto) Eos % (Auto) Lymph # [place] # Eos # Seg Neutrophils % Seg Neuts % (Manual) 77.0 H Lymphocytes % (Manual) 5.0 L Monocytes % (Manual) Eosinophils % (Manual) 10.0 H Nucleated RBC % Seg Neutrophils # Seg Neutrophils # Man Lymphocytes # (Manual) 0.5 L Monocytes # (Manual) Eosinophils # (Manual) 0.9 H PT INR APTT Fibrinogen POC ABG pH ABG pH POC ABG pCO2 POC ABG pO2 ABG pO2 ABG HCO3 ABG O2 Saturation ABG Base Excess ABG Hemoglobin Oxyhemoglobin Sodium Potassium Chloride Carbon Dioxide BUN 83 H Creatinine 4.4 H D Glucose 118 H POC Glucose Uric Acid Calcium Phosphorus Magnesium Iron TIBC AST ALT Total Creatine Kinase CK-MB (CK-2) Troponin T NT-Pro-B Natriuret Pep Total Protein Albumin Triglycerides HDL Cholesterol Folate Urine WBC (Auto) Urine Creatinine Urine Total Protein Vancomycin Trough 05/17/19 05/17/19 05/18/19 04:30 Unknown 01:50 WBC RBC 3.49 L Hgb 9.4 L Hct 30.0 L MCV MCH 27 L MCHC 31 L RDW 17.8 H Plt Count Lymph % (Auto) 7.9 L [place] % (Auto) 15.4 H Eos % (Auto) 6.3 H Lymph # 0.7 L [place] # 1.4 H Eos # 0.6 H Seg Neutrophils % 70.2 H Seg Neuts % (Manual) Lymphocytes % (Manual) Monocytes % (Manual) Eosinophils % (Manual) Nucleated RBC % Seg Neutrophils # Seg Neutrophils # Man Lymphocytes # (Manual) Monocytes # (Manual) Eosinophils # (Manual) PT INR APTT Fibrinogen POC ABG pH ABG pH 7.272 L POC ABG pCO2 POC ABG pO2 ABG pO2 75.7 L ABG HCO3 ABG O2 Saturation 93.8 L ABG Base Excess -3.0 L ABG Hemoglobin 7.8 L Oxyhemoglobin 91.6 L Sodium Potassium 5.2 H Chloride Carbon Dioxide BUN 96 H Creatinine 5.7 H Glucose 112 H POC Glucose Uric Acid Calcium Phosphorus Magnesium Iron TIBC AST ALT Total Creatine Kinase CK-MB (CK-2) Troponin T NT-Pro-B Natriuret Pep Total Protein Albumin Triglycerides 173 H HDL Cholesterol Folate Urine WBC (Auto) Urine Creatinine Urine Total Protein Vancomycin Trough 05/18/19 05/18/19 05/18/19 01:50 04:41 05:24 WBC RBC Hgb Hct MCV MCH MCHC RDW Plt Count Lymph % (Auto) [place] % (Auto) Eos % (Auto) Lymph # [place] # Eos # Seg Neutrophils % Seg Neuts % (Manual) Lymphocytes % (Manual) Monocytes % (Manual) Eosinophils % (Manual) Nucleated RBC % Seg Neutrophils # Seg Neutrophils # Man Lymphocytes # (Manual) Monocytes # (Manual) Eosinophils # (Manual) PT INR APTT Fibrinogen POC ABG pH 7.260 L ABG pH POC ABG pCO2 54.9 H POC ABG pO2 ABG pO2 ABG HCO3 ABG O2 Saturation ABG Base Excess ABG Hemoglobin Oxyhemoglobin Sodium Potassium 5.6 H Chloride Carbon Dioxide BUN 104 H Creatinine 6.6 H Glucose 107 H POC Glucose 106 H Uric Acid Calcium Phosphorus Magnesium Iron TIBC AST ALT Total Creatine Kinase CK-MB (CK-2) Troponin T NT-Pro-B Natriuret Pep Total Protein Albumin Triglycerides HDL Cholesterol Folate Urine WBC (Auto) Urine Creatinine Urine Total Protein Vancomycin Trough 05/18/19 05/18/19 05/19/19 11:34 23:26 04:06 WBC RBC 3.22 L Hgb 8.8 L Hct 27.3 L MCV MCH 27 L MCHC RDW 17.5 H Plt Count Lymph % (Auto) [place] % (Auto) Eos % (Auto) Lymph # [place] # Eos # Seg Neutrophils % Seg Neuts % (Manual) 74.0 H Lymphocytes % (Manual) 4.0 L Monocytes % (Manual) 11.0 H Eosinophils % (Manual) 7.0 H Nucleated RBC % 1.0 H Seg Neutrophils # Seg Neutrophils # Man Lymphocytes # (Manual) 0.3 L Monocytes # (Manual) 0.9 H Eosinophils # (Manual) 0.6 H PT INR APTT Fibrinogen POC ABG pH ABG pH POC ABG pCO2 POC ABG pO2 ABG pO2 ABG HCO3 ABG O2 Saturation ABG Base Excess ABG Hemoglobin Oxyhemoglobin Sodium Potassium Chloride Carbon Dioxide BUN Creatinine Glucose POC Glucose 152 H 112 H Uric Acid Calcium Phosphorus Magnesium Iron TIBC AST ALT Total Creatine Kinase CK-MB (CK-2) Troponin T NT-Pro-B Natriuret Pep Total Protein Albumin Triglycerides HDL Cholesterol Folate Urine WBC (Auto) Urine Creatinine Urine Total Protein Vancomycin Trough 05/19/19 05/19/19 05/20/19 04:06 06:00 04:00 WBC RBC 3.40 L Hgb 9.2 L Hct 28.6 L MCV MCH 27 L MCHC RDW 17.6 H Plt Count Lymph % (Auto) [place] % (Auto) Eos % (Auto) Lymph # [place] # Eos # Seg Neutrophils % Seg Neuts % (Manual) Lymphocytes % (Manual) 11.0 L Monocytes % (Manual) Eosinophils % (Manual) 14.0 H Nucleated RBC % Seg Neutrophils # Seg Neutrophils # Man Lymphocytes # (Manual) 1.1 L Monocytes # (Manual) Eosinophils # (Manual) 1.4 H PT INR APTT Fibrinogen POC ABG pH ABG pH 7.315 L POC ABG pCO2 POC ABG pO2 ABG pO2 ABG HCO3 ABG O2 Saturation ABG Base Excess ABG Hemoglobin 6.7 L Oxyhemoglobin 94.1 L Sodium Potassium 5.2 H Chloride Carbon Dioxide 21 L BUN 110 H Creatinine 7.2 H Glucose POC Glucose Uric Acid Calcium 8.3 L Phosphorus Magnesium Iron TIBC AST ALT Total Creatine Kinase CK-MB (CK-2) Troponin T NT-Pro-B Natriuret Pep Total Protein Albumin Triglycerides HDL Cholesterol Folate Urine WBC (Auto) Urine Creatinine Urine Total Protein Vancomycin Trough 05/20/19 05/20/19 05/20/19 04:00 05:48 12:00 WBC RBC Hgb Hct MCV MCH MCHC RDW Plt Count Lymph % (Auto) [place] % (Auto) Eos % (Auto) Lymph # [place] # Eos # Seg Neutrophils % Seg Neuts % (Manual) Lymphocytes % (Manual) Monocytes % (Manual) Eosinophils % (Manual) Nucleated RBC % Seg Neutrophils # Seg Neutrophils # Man Lymphocytes # (Manual) Monocytes # (Manual) Eosinophils # (Manual) PT INR APTT Fibrinogen POC ABG pH ABG pH 7.281 L POC ABG pCO2 POC ABG pO2 ABG pO2 78.7 L ABG HCO3 ABG O2 Saturation 94.5 L ABG Base Excess -3.0 L ABG Hemoglobin 9.9 L Oxyhemoglobin 92.5 L Sodium 136 L Potassium 5.7 H Chloride 96.3 L Carbon Dioxide BUN 125 H Creatinine 8.3 H Glucose 106 H POC Glucose Uric Acid Calcium Phosphorus Magnesium Iron TIBC AST ALT Total Creatine Kinase CK-MB (CK-2) Troponin T NT-Pro-B Natriuret Pep Total Protein Albumin Triglycerides HDL Cholesterol Folate Urine WBC (Auto) 26.0 H Urine Creatinine Urine Total Protein Vancomycin Trough 05/21/19 05/21/19 05/21/19 04:33 05:20 Unknown WBC RBC 3.38 L Hgb 9.1 L Hct 28.5 L MCV MCH 27 L MCHC RDW 17.4 H Plt Count Lymph % (Auto) [place] % (Auto) Eos % (Auto) Lymph # [place] # Eos # Seg Neutrophils % Seg Neuts % (Manual) 71.0 H Lymphocytes % (Manual) 1.0 L Monocytes % (Manual) 11.0 H Eosinophils % (Manual) 6.0 H Nucleated RBC % Seg Neutrophils # Seg Neutrophils # Man Lymphocytes # (Manual) 0.1 L Monocytes # (Manual) 1.0 H Eosinophils # (Manual) 0.6 H PT INR APTT Fibrinogen POC ABG pH 7.315 L ABG pH POC ABG pCO2 57.8 H POC ABG pO2 68 L ABG pO2 ABG HCO3 ABG O2 Saturation ABG Base Excess ABG Hemoglobin Oxyhemoglobin Sodium Potassium Chloride 96.3 L Carbon Dioxide BUN 102 H Creatinine 7.0 H Glucose 103 H POC Glucose Uric Acid Calcium Phosphorus Magnesium Iron TIBC AST ALT Total Creatine Kinase CK-MB (CK-2) Troponin T NT-Pro-B Natriuret Pep Total Protein Albumin Triglycerides HDL Cholesterol Folate Urine WBC (Auto) Urine Creatinine Urine Total Protein Vancomycin Trough 05/22/19 05/22/19 05/22/19 03:54 06:25 06:25 WBC RBC 3.22 L Hgb 8.6 L Hct 27.0 L MCV MCH 27 L MCHC RDW 17.5 H Plt Count Lymph % (Auto) [place] % (Auto) 16.2 H Eos % (Auto) 10.8 H Lymph # [place] # 1.3 H Eos # 0.9 H Seg Neutrophils % Seg Neuts % (Manual) Lymphocytes % (Manual) 10.0 L Monocytes % (Manual) 13.0 H Eosinophils % (Manual) 8.0 H Nucleated RBC % Seg Neutrophils # Seg Neutrophils # Man Lymphocytes # (Manual) 0.9 L Monocytes # (Manual) 1.1 H Eosinophils # (Manual) 0.7 H PT INR APTT Fibrinogen POC ABG pH 7.313 L ABG pH POC ABG pCO2 55.0 H POC ABG pO2 ABG pO2 ABG HCO3 ABG O2 Saturation ABG Base Excess ABG Hemoglobin Oxyhemoglobin Sodium 135 L Potassium Chloride 94.3 L Carbon Dioxide BUN 117 H Creatinine 7.8 H Glucose POC Glucose Uric Acid Calcium 8.2 L Phosphorus Magnesium Iron TIBC AST ALT Total Creatine Kinase CK-MB (CK-2) Troponin T NT-Pro-B Natriuret Pep Total Protein Albumin Triglycerides HDL Cholesterol Folate Urine WBC (Auto) Urine Creatinine Urine Total Protein Vancomycin Trough 05/23/19 05/24/19 05/24/19 05:21 05:00 05:00 WBC RBC 3.18 L Hgb 8.5 L Hct 26.7 L MCV MCH 27 L MCHC RDW 17.9 H Plt Count Lymph % (Auto) [place] % (Auto) Eos % (Auto) Lymph # [place] # Eos # Seg Neutrophils % Seg Neuts % (Manual) Lymphocytes % (Manual) Monocytes % (Manual) Eosinophils % (Manual) Nucleated RBC % Seg Neutrophils # Seg Neutrophils # Man Lymphocytes # (Manual) Monocytes # (Manual) Eosinophils # (Manual) PT INR APTT Fibrinogen POC ABG pH ABG pH POC ABG pCO2 49.7 H POC ABG pO2 73 L ABG pO2 ABG HCO3 ABG O2 Saturation ABG Base Excess ABG Hemoglobin Oxyhemoglobin Sodium Potassium Chloride 95.7 L Carbon Dioxide BUN 97 H Creatinine 6.5 H Glucose POC Glucose Uric Acid Calcium 8.0 L Phosphorus Magnesium Iron TIBC AST ALT Total Creatine Kinase CK-MB (CK-2) Troponin T NT-Pro-B Natriuret Pep Total Protein Albumin Triglycerides HDL Cholesterol Folate Urine WBC (Auto) Urine Creatinine Urine Total Protein Vancomycin Trough 05/24/19 05/25/19 05/25/19 06:17 04:22 15:45 WBC RBC 2.98 L Hgb 8.1 L Hct 24.9 L MCV MCH 27 L MCHC RDW 17.8 H Plt Count Lymph % (Auto) [place] % (Auto) Eos % (Auto) Lymph # [place] # Eos # Seg Neutrophils % Seg Neuts % (Manual) Lymphocytes % (Manual) Monocytes % (Manual) Eosinophils % (Manual) Nucleated RBC % Seg Neutrophils # Seg Neutrophils # Man Lymphocytes # (Manual) Monocytes # (Manual) Eosinophils # (Manual) PT INR APTT Fibrinogen POC ABG pH 7.330 L 7.313 L ABG pH POC ABG pCO2 52.5 H 51.1 H POC ABG pO2 77 L ABG pO2 ABG HCO3 ABG O2 Saturation ABG Base Excess ABG Hemoglobin Oxyhemoglobin Sodium Potassium Chloride Carbon Dioxide BUN Creatinine Glucose POC Glucose Uric Acid Calcium Phosphorus Magnesium Iron TIBC AST ALT Total Creatine Kinase CK-MB (CK-2) Troponin T NT-Pro-B Natriuret Pep Total Protein Albumin Triglycerides HDL Cholesterol Folate Urine WBC (Auto) Urine Creatinine Urine Total Protein Vancomycin Trough 05/25/19 05/26/19 05/26/19 15:45 04:13 05:00 WBC RBC 3.10 L Hgb 8.4 L Hct 26.0 L MCV MCH 27 L MCHC RDW 17.4 H Plt Count Lymph % (Auto) [place] % (Auto) Eos % (Auto) Lymph # [place] # Eos # Seg Neutrophils % Seg Neuts % (Manual) Lymphocytes % (Manual) Monocytes % (Manual) Eosinophils % (Manual) Nucleated RBC % Seg Neutrophils # Seg Neutrophils # Man Lymphocytes # (Manual) Monocytes # (Manual) Eosinophils # (Manual) PT INR APTT Fibrinogen POC ABG pH 7.295 L ABG pH POC ABG pCO2 56.5 H POC ABG pO2 63 L ABG pO2 ABG HCO3 ABG O2 Saturation ABG Base Excess ABG Hemoglobin Oxyhemoglobin Sodium 136 L Potassium Chloride 96.8 L Carbon Dioxide BUN 83 H Creatinine 5.9 H Glucose POC Glucose Uric Acid Calcium 7.6 L Phosphorus Magnesium Iron TIBC AST ALT Total Creatine Kinase CK-MB (CK-2) Troponin T NT-Pro-B Natriuret Pep Total Protein Albumin Triglycerides HDL Cholesterol Folate Urine WBC (Auto) Urine Creatinine Urine Total Protein Vancomycin Trough 05/26/19 05/27/19 05/28/19 05:00 04:48 04:47 WBC RBC Hgb Hct MCV MCH MCHC RDW Plt Count Lymph % (Auto) [place] % (Auto) Eos % (Auto) Lymph # [place] # Eos # Seg Neutrophils % Seg Neuts % (Manual) Lymphocytes % (Manual) Monocytes % (Manual) Eosinophils % (Manual) Nucleated RBC % Seg Neutrophils # Seg Neutrophils # Man Lymphocytes # (Manual) Monocytes # (Manual) Eosinophils # (Manual) PT INR APTT Fibrinogen POC ABG pH 7.323 L ABG pH 7.284 L POC ABG pCO2 56.2 H POC ABG pO2 ABG pO2 71.6 L ABG HCO3 ABG O2 Saturation 92.0 L ABG Base Excess ABG Hemoglobin 7.7 L Oxyhemoglobin 89.9 L Sodium 136 L Potassium Chloride 95.3 L Carbon Dioxide BUN 96 H Creatinine 6.5 H Glucose 108 H POC Glucose Uric Acid Calcium 7.6 L Phosphorus Magnesium Iron TIBC AST ALT Total Creatine Kinase CK-MB (CK-2) Troponin T NT-Pro-B Natriuret Pep Total Protein Albumin Triglycerides HDL Cholesterol Folate Urine WBC (Auto) Urine Creatinine Urine Total Protein Vancomycin Trough 05/28/19 05/29/19 05/29/19 12:30 12:47 23:44 WBC RBC Hgb Hct MCV MCH MCHC RDW Plt Count Lymph % (Auto) [place] % (Auto) Eos % (Auto) Lymph # [place] # Eos # Seg Neutrophils % Seg Neuts % (Manual) Lymphocytes % (Manual) Monocytes % (Manual) Eosinophils % (Manual) Nucleated RBC % Seg Neutrophils # Seg Neutrophils # Man Lymphocytes # (Manual) Monocytes # (Manual) Eosinophils # (Manual) PT INR APTT Fibrinogen POC ABG pH ABG pH POC ABG pCO2 POC ABG pO2 ABG pO2 ABG HCO3 ABG O2 Saturation ABG Base Excess ABG Hemoglobin Oxyhemoglobin Sodium 135 L Potassium Chloride 95.3 L Carbon Dioxide BUN 82 H Creatinine 6.0 H Glucose POC Glucose 136 H 159 H Uric Acid Calcium 7.5 L Phosphorus Magnesium Iron TIBC AST ALT Total Creatine Kinase CK-MB (CK-2) Troponin T NT-Pro-B Natriuret Pep Total Protein Albumin Triglycerides HDL Cholesterol Folate Urine WBC (Auto) Urine Creatinine Urine Total Protein Vancomycin Trough 05/30/19 05/30/19 05/30/19 04:30 05:38 12:00 WBC RBC 3.01 L Hgb 8.2 L Hct 25.3 L MCV MCH 27 L MCHC RDW 17.5 H Plt Count Lymph % (Auto) [place] % (Auto) Eos % (Auto) Lymph # [place] # Eos # Seg Neutrophils % Seg Neuts % (Manual) 80.0 H Lymphocytes % (Manual) 10.0 L Monocytes % (Manual) Eosinophils % (Manual) Nucleated RBC % Seg Neutrophils # Seg Neutrophils # Man 8.0 H Lymphocytes # (Manual) 1.0 L Monocytes # (Manual) Eosinophils # (Manual) PT INR APTT Fibrinogen POC ABG pH ABG pH POC ABG pCO2 POC ABG pO2 73 L ABG pO2 ABG HCO3 ABG O2 Saturation ABG Base Excess ABG Hemoglobin Oxyhemoglobin Sodium Potassium Chloride Carbon Dioxide BUN Creatinine Glucose POC Glucose 166 H Uric Acid Calcium Phosphorus Magnesium Iron TIBC AST ALT Total Creatine Kinase CK-MB (CK-2) Troponin T NT-Pro-B Natriuret Pep Total Protein Albumin Triglycerides HDL Cholesterol Folate Urine WBC (Auto) Urine Creatinine Urine Total Protein Vancomycin Trough 05/30/19 05/31/19 05/31/19 23:45 04:07 13:04 WBC 14.3 H RBC 2.88 L Hgb 7.7 L Hct 23.9 L MCV 83 L MCH 27 L MCHC RDW 17.8 H Plt Count Lymph % (Auto) [place] % (Auto) Eos % (Auto) Lymph # [place] # Eos # Seg Neutrophils % Seg Neuts % (Manual) 83.0 H Lymphocytes % (Manual) 11.0 L Monocytes % (Manual) Eosinophils % (Manual) Nucleated RBC % Seg Neutrophils # Seg Neutrophils # Man 11.9 H Lymphocytes # (Manual) Monocytes # (Manual) 0.9 H Eosinophils # (Manual) PT INR APTT Fibrinogen POC ABG pH ABG pH POC ABG pCO2 47.4 H POC ABG pO2 ABG pO2 ABG HCO3 ABG O2 Saturation ABG Base Excess ABG Hemoglobin Oxyhemoglobin Sodium Potassium Chloride Carbon Dioxide BUN Creatinine Glucose POC Glucose 209 H Uric Acid Calcium Phosphorus Magnesium Iron TIBC AST ALT Total Creatine Kinase CK-MB (CK-2) Troponin T NT-Pro-B Natriuret Pep Total Protein Albumin Triglycerides HDL Cholesterol Folate Urine WBC (Auto) Urine Creatinine Urine Total Protein Vancomycin Trough 05/31/19 05/31/19 06/01/19 13:04 16:42 00:15 WBC RBC Hgb Hct MCV MCH MCHC RDW Plt Count Lymph % (Auto) [place] % (Auto) Eos % (Auto) Lymph # [place] # Eos # Seg Neutrophils % Seg Neuts % (Manual) Lymphocytes % (Manual) Monocytes % (Manual) Eosinophils % (Manual) Nucleated RBC % Seg Neutrophils # Seg Neutrophils # Man Lymphocytes # (Manual) Monocytes # (Manual) Eosinophils # (Manual) PT INR APTT Fibrinogen POC ABG pH ABG pH POC ABG pCO2 POC ABG pO2 ABG pO2 ABG HCO3 ABG O2 Saturation ABG Base Excess ABG Hemoglobin Oxyhemoglobin Sodium 129 L Potassium Chloride 88.6 L Carbon Dioxide 19 L BUN 117 H Creatinine 6.7 H Glucose 205 H POC Glucose 228 H 223 H Uric Acid Calcium 7.4 L Phosphorus 7.40 H Magnesium Iron TIBC AST 58 H ALT 149 H Total Creatine Kinase CK-MB (CK-2) Troponin T NT-Pro-B Natriuret Pep Total Protein 6.0 L Albumin 2.5 L Triglycerides HDL Cholesterol Folate Urine WBC (Auto) Urine Creatinine Urine Total Protein Vancomycin Trough 06/01/19 06/01/19 06/01/19 04:33 05:27 12:31 WBC RBC Hgb Hct MCV MCH MCHC RDW Plt Count Lymph % (Auto) [place] % (Auto) Eos % (Auto) Lymph # [place] # Eos # Seg Neutrophils % Seg Neuts % (Manual) Lymphocytes % (Manual) Monocytes % (Manual) Eosinophils % (Manual) Nucleated RBC % Seg Neutrophils # Seg Neutrophils # Man Lymphocytes # (Manual) Monocytes # (Manual) Eosinophils # (Manual) PT INR APTT Fibrinogen POC ABG pH ABG pH POC ABG pCO2 POC ABG pO2 ABG pO2 56.9 L ABG HCO3 ABG O2 Saturation 85.9 L ABG Base Excess ABG Hemoglobin 8.1 L Oxyhemoglobin 83.6 L Sodium Potassium Chloride Carbon Dioxide BUN Creatinine Glucose POC Glucose 183 H 217 H Uric Acid Calcium Phosphorus Magnesium Iron TIBC AST ALT Total Creatine Kinase CK-MB (CK-2) Troponin T NT-Pro-B Natriuret Pep Total Protein Albumin Triglycerides HDL Cholesterol Folate Urine WBC (Auto) Urine Creatinine Urine Total Protein Vancomycin Trough 06/01/19 06/02/19 06/02/19 18:20 00:00 05:33 WBC RBC Hgb Hct MCV MCH MCHC RDW Plt Count Lymph % (Auto) [place] % (Auto) Eos % (Auto) Lymph # [place] # Eos # Seg Neutrophils % Seg Neuts % (Manual) Lymphocytes % (Manual) Monocytes % (Manual) Eosinophils % (Manual) Nucleated RBC % Seg Neutrophils # Seg Neutrophils # Man Lymphocytes # (Manual) Monocytes # (Manual) Eosinophils # (Manual) PT INR APTT Fibrinogen POC ABG pH ABG pH POC ABG pCO2 POC ABG pO2 ABG pO2 ABG HCO3 ABG O2 Saturation ABG Base Excess ABG Hemoglobin Oxyhemoglobin Sodium Potassium Chloride Carbon Dioxide BUN Creatinine Glucose POC Glucose 265 H 279 H 259 H Uric Acid Calcium Phosphorus Magnesium Iron TIBC AST ALT Total Creatine Kinase CK-MB (CK-2) Troponin T NT-Pro-B Natriuret Pep Total Protein Albumin Triglycerides HDL Cholesterol Folate Urine WBC (Auto) Urine Creatinine Urine Total Protein Vancomycin Trough 06/02/19 06/02/19 06/02/19 11:06 11:06 11:42 WBC 13.1 H RBC 2.92 L Hgb 7.9 L Hct 24.4 L MCV MCH 27 L MCHC RDW 17.4 H Plt Count Lymph % (Auto) [place] % (Auto) Eos % (Auto) Lymph # [place] # Eos # Seg Neutrophils % Seg Neuts % (Manual) 78.0 H Lymphocytes % (Manual) 12.0 L Monocytes % (Manual) 10.0 H Eosinophils % (Manual) Nucleated RBC % Seg Neutrophils # Seg Neutrophils # Man 10.2 H Lymphocytes # (Manual) Monocytes # (Manual) 1.3 H Eosinophils # (Manual) PT INR APTT Fibrinogen POC ABG pH ABG pH POC ABG pCO2 POC ABG pO2 ABG pO2 ABG HCO3 ABG O2 Saturation ABG Base Excess ABG Hemoglobin Oxyhemoglobin Sodium 135 L Potassium Chloride 94.7 L Carbon Dioxide 21 L BUN 107 H Creatinine 4.5 H Glucose 286 H POC Glucose 263 H Uric Acid Calcium 7.9 L Phosphorus 6.30 H Magnesium Iron TIBC AST ALT 104 H Total Creatine Kinase CK-MB (CK-2) Troponin T NT-Pro-B Natriuret Pep Total Protein 6.0 L Albumin 2.7 L Triglycerides HDL Cholesterol Folate Urine WBC (Auto) Urine Creatinine Urine Total Protein Vancomycin Trough 06/02/19 06/02/19 06/03/19 18:17 23:55 05:30 WBC RBC Hgb Hct MCV MCH MCHC RDW Plt Count Lymph % (Auto) [place] % (Auto) Eos % (Auto) Lymph # [place] # Eos # Seg Neutrophils % Seg Neuts % (Manual) Lymphocytes % (Manual) Monocytes % (Manual) Eosinophils % (Manual) Nucleated RBC % Seg Neutrophils # Seg Neutrophils # Man Lymphocytes # (Manual) Monocytes # (Manual) Eosinophils # (Manual) PT INR APTT Fibrinogen POC ABG pH ABG pH POC ABG pCO2 POC ABG pO2 ABG pO2 ABG HCO3 ABG O2 Saturation ABG Base Excess ABG Hemoglobin Oxyhemoglobin Sodium Potassium Chloride 95.1 L Carbon Dioxide 21 L BUN 119 H Creatinine 4.1 H Glucose 330 H POC Glucose 276 H 244 H Uric Acid Calcium 8.1 L Phosphorus Magnesium Iron TIBC AST ALT 98 H Total Creatine Kinase CK-MB (CK-2) Troponin T NT-Pro-B Natriuret Pep Total Protein 5.8 L Albumin 2.8 L Triglycerides HDL Cholesterol Folate Urine WBC (Auto) Urine Creatinine Urine Total Protein Vancomycin Trough 06/03/19 06/03/19 06/03/19 05:30 06:04 09:42 WBC 12.8 H RBC 3.01 L Hgb 8.2 L Hct 25.4 L MCV MCH 27 L MCHC RDW 17.5 H Plt Count Lymph % (Auto) [place] % (Auto) Eos % (Auto) Lymph # [place] # Eos # Seg Neutrophils % Seg Neuts % (Manual) 78.0 H Lymphocytes % (Manual) 10.0 L Monocytes % (Manual) 12.0 H Eosinophils % (Manual) Nucleated RBC % Seg Neutrophils # Seg Neutrophils # Man 10.0 H Lymphocytes # (Manual) Monocytes # (Manual) 1.5 H Eosinophils # (Manual) PT INR APTT Fibrinogen POC ABG pH ABG pH POC ABG pCO2 POC ABG pO2 ABG pO2 ABG HCO3 ABG O2 Saturation ABG Base Excess ABG Hemoglobin Oxyhemoglobin Sodium Potassium Chloride Carbon Dioxide BUN 106 H Creatinine Glucose POC Glucose 254 H Uric Acid Calcium Phosphorus Magnesium Iron TIBC AST ALT Total Creatine Kinase CK-MB (CK-2) Troponin T NT-Pro-B Natriuret Pep Total Protein Albumin Triglycerides HDL Cholesterol Folate Urine WBC (Auto) Urine Creatinine Urine Total Protein Vancomycin Trough 06/03/19 06/03/19 06/03/19 12:52 17:25 23:37 WBC RBC Hgb Hct MCV MCH MCHC RDW Plt Count Lymph % (Auto) [place] % (Auto) Eos % (Auto) Lymph # [place] # Eos # Seg Neutrophils % Seg Neuts % (Manual) Lymphocytes % (Manual) Monocytes % (Manual) Eosinophils % (Manual) Nucleated RBC % Seg Neutrophils # Seg Neutrophils # Man Lymphocytes # (Manual) Monocytes # (Manual) Eosinophils # (Manual) PT INR APTT Fibrinogen POC ABG pH ABG pH POC ABG pCO2 POC ABG pO2 ABG pO2 ABG HCO3 ABG O2 Saturation ABG Base Excess ABG Hemoglobin Oxyhemoglobin Sodium Potassium Chloride Carbon Dioxide BUN Creatinine Glucose POC Glucose 274 H 285 H 310 H Uric Acid Calcium Phosphorus Magnesium Iron TIBC AST ALT Total Creatine Kinase CK-MB (CK-2) Troponin T NT-Pro-B Natriuret Pep Total Protein Albumin Triglycerides HDL Cholesterol Folate Urine WBC (Auto) Urine Creatinine Urine Total Protein Vancomycin Trough 06/04/19 06/04/19 06/04/19 04:57 05:03 11:50 WBC RBC Hgb Hct MCV MCH MCHC RDW Plt Count Lymph % (Auto) [place] % (Auto) Eos % (Auto) Lymph # [place] # Eos # Seg Neutrophils % Seg Neuts % (Manual) Lymphocytes % (Manual) Monocytes % (Manual) Eosinophils % (Manual) Nucleated RBC % Seg Neutrophils # Seg Neutrophils # Man Lymphocytes # (Manual) Monocytes # (Manual) Eosinophils # (Manual) PT INR APTT Fibrinogen POC ABG pH 7.488 H ABG pH POC ABG pCO2 POC ABG pO2 ABG pO2 ABG HCO3 ABG O2 Saturation ABG Base Excess ABG Hemoglobin Oxyhemoglobin Sodium Potassium Chloride Carbon Dioxide BUN Creatinine Glucose POC Glucose 275 H 279 H Uric Acid Calcium Phosphorus Magnesium Iron TIBC AST ALT Total Creatine Kinase CK-MB (CK-2) Troponin T NT-Pro-B Natriuret Pep Total Protein Albumin Triglycerides HDL Cholesterol Folate Urine WBC (Auto) Urine Creatinine Urine Total Protein Vancomycin Trough 06/04/19 06/04/19 06/04/19 18:32 22:03 23:55 WBC RBC Hgb Hct MCV MCH MCHC RDW Plt Count Lymph % (Auto) [place] % (Auto) Eos % (Auto) Lymph # [place] # Eos # Seg Neutrophils % Seg Neuts % (Manual) Lymphocytes % (Manual) Monocytes % (Manual) Eosinophils % (Manual) Nucleated RBC % Seg Neutrophils # Seg Neutrophils # Man Lymphocytes # (Manual) Monocytes # (Manual) Eosinophils # (Manual) PT INR APTT Fibrinogen POC ABG pH ABG pH POC ABG pCO2 POC ABG pO2 ABG pO2 ABG HCO3 ABG O2 Saturation ABG Base Excess ABG Hemoglobin Oxyhemoglobin Sodium Potassium Chloride Carbon Dioxide BUN Creatinine Glucose POC Glucose 267 H 307 H 292 H Uric Acid Calcium Phosphorus Magnesium Iron TIBC AST ALT Total Creatine Kinase CK-MB (CK-2) Troponin T NT-Pro-B Natriuret Pep Total Protein Albumin Triglycerides HDL Cholesterol Folate Urine WBC (Auto) Urine Creatinine Urine Total Protein Vancomycin Trough 06/05/19 06/05/19 06/05/19 03:52 06:41 12:29 WBC RBC Hgb Hct MCV MCH MCHC RDW Plt Count Lymph % (Auto) [place] % (Auto) Eos % (Auto) Lymph # [place] # Eos # Seg Neutrophils % Seg Neuts % (Manual) Lymphocytes % (Manual) Monocytes % (Manual) Eosinophils % (Manual) Nucleated RBC % Seg Neutrophils # Seg Neutrophils # Man Lymphocytes # (Manual) Monocytes # (Manual) Eosinophils # (Manual) PT INR APTT Fibrinogen POC ABG pH 7.462 H ABG pH POC ABG pCO2 POC ABG pO2 ABG pO2 ABG HCO3 ABG O2 Saturation ABG Base Excess ABG Hemoglobin Oxyhemoglobin Sodium Potassium Chloride Carbon Dioxide BUN Creatinine Glucose POC Glucose 369 H 265 H Uric Acid Calcium Phosphorus Magnesium Iron TIBC AST ALT Total Creatine Kinase CK-MB (CK-2) Troponin T NT-Pro-B Natriuret Pep Total Protein Albumin Triglycerides HDL Cholesterol Folate Urine WBC (Auto) Urine Creatinine Urine Total Protein Vancomycin Trough 06/05/19 06/05/19 06/05/19 18:20 21:42 23:21 WBC RBC Hgb Hct MCV MCH MCHC RDW Plt Count Lymph % (Auto) [place] % (Auto) Eos % (Auto) Lymph # [place] # Eos # Seg Neutrophils % Seg Neuts % (Manual) Lymphocytes % (Manual) Monocytes % (Manual) Eosinophils % (Manual) Nucleated RBC % Seg Neutrophils # Seg Neutrophils # Man Lymphocytes # (Manual) Monocytes # (Manual) Eosinophils # (Manual) PT INR APTT Fibrinogen POC ABG pH ABG pH POC ABG pCO2 POC ABG pO2 ABG pO2 ABG HCO3 ABG O2 Saturation ABG Base Excess ABG Hemoglobin Oxyhemoglobin Sodium Potassium Chloride Carbon Dioxide BUN Creatinine Glucose POC Glucose 249 H 246 H 274 H Uric Acid Calcium Phosphorus Magnesium Iron TIBC AST ALT Total Creatine Kinase CK-MB (CK-2) Troponin T NT-Pro-B Natriuret Pep Total Protein Albumin Triglycerides HDL Cholesterol Folate Urine WBC (Auto) Urine Creatinine Urine Total Protein Vancomycin Trough 06/06/19 06/06/19 06/06/19 04:00 05:49 11:34 WBC 18.1 H RBC 3.53 L Hgb 9.5 L Hct 30.3 L MCV MCH 27 L MCHC 31 L RDW 19.5 H Plt Count Lymph % (Auto) [place] % (Auto) Eos % (Auto) Lymph # [place] # Eos # Seg Neutrophils % Seg Neuts % (Manual) 87.0 H Lymphocytes % (Manual) 3.0 L Monocytes % (Manual) 8.0 H Eosinophils % (Manual) Nucleated RBC % Seg Neutrophils # Seg Neutrophils # Man 15.7 H Lymphocytes # (Manual) 0.5 L Monocytes # (Manual) 1.4 H Eosinophils # (Manual) PT INR APTT Fibrinogen POC ABG pH ABG pH 7.472 H POC ABG pCO2 POC ABG pO2 ABG pO2 76.4 L ABG HCO3 28.1 H ABG O2 Saturation ABG Base Excess 4.3 H ABG Hemoglobin 12.5 L Oxyhemoglobin 93.8 L Sodium Potassium Chloride Carbon Dioxide BUN Creatinine Glucose POC Glucose 340 H Uric Acid Calcium Phosphorus Magnesium Iron TIBC AST ALT Total Creatine Kinase CK-MB (CK-2) Troponin T NT-Pro-B Natriuret Pep Total Protein Albumin Triglycerides HDL Cholesterol Folate Urine WBC (Auto) Urine Creatinine Urine Total Protein Vancomycin Trough 06/06/19 06/06/19 06/06/19 11:34 12:11 18:10 WBC RBC Hgb Hct MCV MCH MCHC RDW Plt Count Lymph % (Auto) [place] % (Auto) Eos % (Auto) Lymph # [place] # Eos # Seg Neutrophils % Seg Neuts % (Manual) Lymphocytes % (Manual) Monocytes % (Manual) Eosinophils % (Manual) Nucleated RBC % Seg Neutrophils # Seg Neutrophils # Man Lymphocytes # (Manual) Monocytes # (Manual) Eosinophils # (Manual) PT INR APTT Fibrinogen POC ABG pH ABG pH POC ABG pCO2 POC ABG pO2 ABG pO2 ABG HCO3 ABG O2 Saturation ABG Base Excess ABG Hemoglobin Oxyhemoglobin Sodium Potassium Chloride Carbon Dioxide BUN 70 H Creatinine Glucose 310 H POC Glucose 283 H 301 H Uric Acid Calcium 8.3 L Phosphorus 4.60 H Magnesium Iron TIBC AST ALT 75 H Total Creatine Kinase CK-MB (CK-2) Troponin T NT-Pro-B Natriuret Pep Total Protein 5.6 L Albumin 2.9 L Triglycerides HDL Cholesterol Folate Urine WBC (Auto) Urine Creatinine Urine Total Protein Vancomycin Trough 06/06/19 06/06/19 06/07/19 22:21 23:16 04:30 WBC RBC Hgb Hct MCV MCH MCHC RDW Plt Count Lymph % (Auto) [place] % (Auto) Eos % (Auto) Lymph # [place] # Eos # Seg Neutrophils % Seg Neuts % (Manual) Lymphocytes % (Manual) Monocytes % (Manual) Eosinophils % (Manual) Nucleated RBC % Seg Neutrophils # Seg Neutrophils # Man Lymphocytes # (Manual) Monocytes # (Manual) Eosinophils # (Manual) PT INR APTT Fibrinogen POC ABG pH ABG pH 7.480 H POC ABG pCO2 POC ABG pO2 ABG pO2 77.0 L ABG HCO3 27.2 H ABG O2 Saturation ABG Base Excess 3.5 H ABG Hemoglobin 7.1 L Oxyhemoglobin 94.2 L Sodium Potassium Chloride Carbon Dioxide BUN Creatinine Glucose POC Glucose 289 H 343 H Uric Acid Calcium Phosphorus Magnesium Iron TIBC AST ALT Total Creatine Kinase CK-MB (CK-2) Troponin T NT-Pro-B Natriuret Pep Total Protein Albumin Triglycerides HDL Cholesterol Folate Urine WBC (Auto) Urine Creatinine Urine Total Protein Vancomycin Trough 06/07/19 06/07/19 06/07/19 05:15 12:52 18:41 WBC RBC Hgb Hct MCV MCH MCHC RDW Plt Count Lymph % (Auto) [place] % (Auto) Eos % (Auto) Lymph # [place] # Eos # Seg Neutrophils % Seg Neuts % (Manual) Lymphocytes % (Manual) Monocytes % (Manual) Eosinophils % (Manual) Nucleated RBC % Seg Neutrophils # Seg Neutrophils # Man Lymphocytes # (Manual) Monocytes # (Manual) Eosinophils # (Manual) PT INR APTT Fibrinogen POC ABG pH ABG pH POC ABG pCO2 POC ABG pO2 ABG pO2 ABG HCO3 ABG O2 Saturation ABG Base Excess ABG Hemoglobin Oxyhemoglobin Sodium Potassium Chloride Carbon Dioxide BUN Creatinine Glucose POC Glucose 307 H 226 H 187 H Uric Acid Calcium Phosphorus Magnesium Iron TIBC AST ALT Total Creatine Kinase CK-MB (CK-2) Troponin T NT-Pro-B Natriuret Pep Total Protein Albumin Triglycerides HDL Cholesterol Folate Urine WBC (Auto) Urine Creatinine Urine Total Protein Vancomycin Trough 06/07/19 06/07/19 06/08/19 22:54 23:46 04:20 WBC 16.0 H RBC Hgb 10.0 L Hct 32.1 L MCV MCH 27 L MCHC 31 L RDW 19.4 H Plt Count Lymph % (Auto) [place] % (Auto) Eos % (Auto) Lymph # [place] # Eos # Seg Neutrophils % Seg Neuts % (Manual) 87.0 H Lymphocytes % (Manual) 7.0 L Monocytes % (Manual) Eosinophils % (Manual) Nucleated RBC % Seg Neutrophils # Seg Neutrophils # Man 13.9 H Lymphocytes # (Manual) 1.1 L Monocytes # (Manual) 1.0 H Eosinophils # (Manual) PT INR APTT Fibrinogen POC ABG pH ABG pH POC ABG pCO2 POC ABG pO2 ABG pO2 ABG HCO3 ABG O2 Saturation ABG Base Excess ABG Hemoglobin Oxyhemoglobin Sodium Potassium Chloride Carbon Dioxide BUN Creatinine Glucose POC Glucose 199 H 172 H Uric Acid Calcium Phosphorus Magnesium Iron TIBC AST ALT Total Creatine Kinase CK-MB (CK-2) Troponin T NT-Pro-B Natriuret Pep Total Protein Albumin Triglycerides HDL Cholesterol Folate Urine WBC (Auto) Urine Creatinine Urine Total Protein Vancomycin Trough 06/08/19 06/08/19 06/08/19 04:20 05:15 11:31 WBC RBC Hgb Hct MCV MCH MCHC RDW Plt Count Lymph % (Auto) [place] % (Auto) Eos % (Auto) Lymph # [place] # Eos # Seg Neutrophils % Seg Neuts % (Manual) Lymphocytes % (Manual) Monocytes % (Manual) Eosinophils % (Manual) Nucleated RBC % Seg Neutrophils # Seg Neutrophils # Man Lymphocytes # (Manual) Monocytes # (Manual) Eosinophils # (Manual) PT INR APTT Fibrinogen POC ABG pH ABG pH POC ABG pCO2 POC ABG pO2 ABG pO2 ABG HCO3 ABG O2 Saturation ABG Base Excess ABG Hemoglobin Oxyhemoglobin Sodium 146 H D Potassium Chloride Carbon Dioxide BUN 77 H Creatinine Glucose 205 H POC Glucose 209 H 181 H Uric Acid Calcium Phosphorus Magnesium Iron TIBC AST ALT 66 H Total Creatine Kinase CK-MB (CK-2) Troponin T NT-Pro-B Natriuret Pep Total Protein 5.5 L Albumin 2.9 L Triglycerides HDL Cholesterol Folate Urine WBC (Auto) Urine Creatinine Urine Total Protein Vancomycin Trough 06/08/19 06/08/19 06/09/19 17:28 23:24 05:20 WBC RBC Hgb Hct MCV MCH MCHC RDW Plt Count Lymph % (Auto) [place] % (Auto) Eos % (Auto) Lymph # [place] # Eos # Seg Neutrophils % Seg Neuts % (Manual) Lymphocytes % (Manual) Monocytes % (Manual) Eosinophils % (Manual) Nucleated RBC % Seg Neutrophils # Seg Neutrophils # Man Lymphocytes # (Manual) Monocytes # (Manual) Eosinophils # (Manual) PT INR APTT Fibrinogen POC ABG pH ABG pH POC ABG pCO2 POC ABG pO2 ABG pO2 ABG HCO3 ABG O2 Saturation ABG Base Excess ABG Hemoglobin Oxyhemoglobin Sodium Potassium Chloride Carbon Dioxide BUN Creatinine Glucose POC Glucose 215 H 200 H 173 H Uric Acid Calcium Phosphorus Magnesium Iron TIBC AST ALT Total Creatine Kinase CK-MB (CK-2) Troponin T NT-Pro-B Natriuret Pep Total Protein Albumin Triglycerides HDL Cholesterol Folate Urine WBC (Auto) Urine Creatinine Urine Total Protein Vancomycin Trough 06/09/19 06/09/19 06/09/19 12:07 18:32 23:51 WBC RBC Hgb Hct MCV MCH MCHC RDW Plt Count Lymph % (Auto) [place] % (Auto) Eos % (Auto) Lymph # [place] # Eos # Seg Neutrophils % Seg Neuts % (Manual) Lymphocytes % (Manual) Monocytes % (Manual) Eosinophils % (Manual) Nucleated RBC % Seg Neutrophils # Seg Neutrophils # Man Lymphocytes # (Manual) Monocytes # (Manual) Eosinophils # (Manual) PT INR APTT Fibrinogen POC ABG pH ABG pH POC ABG pCO2 POC ABG pO2 ABG pO2 ABG HCO3 ABG O2 Saturation ABG Base Excess ABG Hemoglobin Oxyhemoglobin Sodium Potassium Chloride Carbon Dioxide BUN Creatinine Glucose POC Glucose 117 H 169 H 147 H Uric Acid Calcium Phosphorus Magnesium Iron TIBC AST ALT Total Creatine Kinase CK-MB (CK-2) Troponin T NT-Pro-B Natriuret Pep Total Protein Albumin Triglycerides HDL Cholesterol Folate Urine WBC (Auto) Urine Creatinine Urine Total Protein Vancomycin Trough 06/10/19 06/10/19 06/10/19 05:45 05:45 06:01 WBC 14.6 H RBC Hgb 9.9 L Hct 32.2 L MCV MCH 27 L MCHC 31 L RDW 19.6 H Plt Count Lymph % (Auto) 10.5 L [place] % (Auto) 9.4 H Eos % (Auto) Lymph # [place] # 1.4 H Eos # Seg Neutrophils % 79.9 H Seg Neuts % (Manual) Lymphocytes % (Manual) Monocytes % (Manual) Eosinophils % (Manual) Nucleated RBC % Seg Neutrophils # 11.7 H Seg Neutrophils # Man Lymphocytes # (Manual) Monocytes # (Manual) Eosinophils # (Manual) PT INR APTT Fibrinogen POC ABG pH ABG pH POC ABG pCO2 POC ABG pO2 ABG pO2 ABG HCO3 ABG O2 Saturation ABG Base Excess ABG Hemoglobin Oxyhemoglobin Sodium 150 H Potassium Chloride 108.3 H Carbon Dioxide BUN 49 H Creatinine Glucose 172 H POC Glucose 165 H Uric Acid Calcium Phosphorus Magnesium 1.40 L Iron TIBC AST ALT Total Creatine Kinase CK-MB (CK-2) Troponin T NT-Pro-B Natriuret Pep Total Protein Albumin Triglycerides HDL Cholesterol Folate Urine WBC (Auto) Urine Creatinine Urine Total Protein Vancomycin Trough 06/10/19 06/10/19 06/11/19 12:11 18:30 00:02 WBC RBC Hgb Hct MCV MCH MCHC RDW Plt Count Lymph % (Auto) [place] % (Auto) Eos % (Auto) Lymph # [place] # Eos # Seg Neutrophils % Seg Neuts % (Manual) Lymphocytes % (Manual) Monocytes % (Manual) Eosinophils % (Manual) Nucleated RBC % Seg Neutrophils # Seg Neutrophils # Man Lymphocytes # (Manual) Monocytes # (Manual) Eosinophils # (Manual) PT INR APTT Fibrinogen POC ABG pH ABG pH POC ABG pCO2 POC ABG pO2 ABG pO2 ABG HCO3 ABG O2 Saturation ABG Base Excess ABG Hemoglobin Oxyhemoglobin Sodium Potassium Chloride Carbon Dioxide BUN Creatinine Glucose POC Glucose 150 H 154 H 130 H Uric Acid Calcium Phosphorus Magnesium Iron TIBC AST ALT Total Creatine Kinase CK-MB (CK-2) Troponin T NT-Pro-B Natriuret Pep Total Protein Albumin Triglycerides HDL Cholesterol Folate Urine WBC (Auto) Urine Creatinine Urine Total Protein Vancomycin Trough 06/11/19 06/11/19 06/11/19 05:33 08:34 12:33 WBC RBC Hgb Hct MCV MCH MCHC RDW Plt Count Lymph % (Auto) [place] % (Auto) Eos % (Auto) Lymph # [place] # Eos # Seg Neutrophils % Seg Neuts % (Manual) Lymphocytes % (Manual) Monocytes % (Manual) Eosinophils % (Manual) Nucleated RBC % Seg Neutrophils # Seg Neutrophils # Man Lymphocytes # (Manual) Monocytes # (Manual) Eosinophils # (Manual) PT INR APTT Fibrinogen POC ABG pH ABG pH POC ABG pCO2 POC ABG pO2 ABG pO2 ABG HCO3 ABG O2 Saturation ABG Base Excess ABG Hemoglobin Oxyhemoglobin Sodium 154 H Potassium Chloride 111.6 H Carbon Dioxide BUN 41 H Creatinine Glucose 147 H POC Glucose 183 H 185 H Uric Acid Calcium Phosphorus Magnesium Iron TIBC AST ALT Total Creatine Kinase CK-MB (CK-2) Troponin T NT-Pro-B Natriuret Pep Total Protein Albumin Triglycerides HDL Cholesterol Folate Urine WBC (Auto) Urine Creatinine Urine Total Protein Vancomycin Trough 06/11/19 06/11/19 06/12/19 18:22 23:46 03:21 WBC 11.9 H RBC 3.61 L Hgb 9.9 L Hct 31.7 L MCV MCH 27 L MCHC 31 L RDW 19.3 H Plt Count Lymph % (Auto) 10.6 L [place] % (Auto) 8.6 H Eos % (Auto) Lymph # [place] # 1.0 H Eos # Seg Neutrophils % 80.6 H Seg Neuts % (Manual) Lymphocytes % (Manual) Monocytes % (Manual) Eosinophils % (Manual) Nucleated RBC % Seg Neutrophils # 9.6 H Seg Neutrophils # Man Lymphocytes # (Manual) Monocytes # (Manual) Eosinophils # (Manual) PT INR APTT Fibrinogen POC ABG pH ABG pH POC ABG pCO2 POC ABG pO2 ABG pO2 ABG HCO3 ABG O2 Saturation ABG Base Excess ABG Hemoglobin Oxyhemoglobin Sodium Potassium Chloride Carbon Dioxide BUN Creatinine Glucose POC Glucose 158 H 182 H Uric Acid Calcium Phosphorus Magnesium Iron TIBC AST ALT Total Creatine Kinase CK-MB (CK-2) Troponin T NT-Pro-B Natriuret Pep Total Protein Albumin Triglycerides HDL Cholesterol Folate Urine WBC (Auto) Urine Creatinine Urine Total Protein Vancomycin Trough 06/12/19 06/12/19 06/12/19 03:21 06:04 11:28 WBC RBC Hgb Hct MCV MCH MCHC RDW Plt Count Lymph % (Auto) [place] % (Auto) Eos % (Auto) Lymph # [place] # Eos # Seg Neutrophils % Seg Neuts % (Manual) Lymphocytes % (Manual) Monocytes % (Manual) Eosinophils % (Manual) Nucleated RBC % Seg Neutrophils # Seg Neutrophils # Man Lymphocytes # (Manual) Monocytes # (Manual) Eosinophils # (Manual) PT INR APTT Fibrinogen POC ABG pH ABG pH POC ABG pCO2 POC ABG pO2 ABG pO2 ABG HCO3 ABG O2 Saturation ABG Base Excess ABG Hemoglobin Oxyhemoglobin Sodium 148 H Potassium Chloride 107.3 H Carbon Dioxide BUN 34 H Creatinine 0.7 L Glucose 194 H POC Glucose 133 H 167 H Uric Acid Calcium Phosphorus Magnesium 1.40 L Iron TIBC AST ALT Total Creatine Kinase CK-MB (CK-2) Troponin T NT-Pro-B Natriuret Pep Total Protein Albumin Triglycerides HDL Cholesterol Folate Urine WBC (Auto) Urine Creatinine Urine Total Protein Vancomycin Trough 06/12/19 06/12/19 06/13/19 18:47 21:27 00:04 WBC RBC Hgb Hct MCV MCH MCHC RDW Plt Count Lymph % (Auto) [place] % (Auto) Eos % (Auto) Lymph # [place] # Eos # Seg Neutrophils % Seg Neuts % (Manual) Lymphocytes % (Manual) Monocytes % (Manual) Eosinophils % (Manual) Nucleated RBC % Seg Neutrophils # Seg Neutrophils # Man Lymphocytes # (Manual) Monocytes # (Manual) Eosinophils # (Manual) PT INR APTT Fibrinogen POC ABG pH ABG pH POC ABG pCO2 POC ABG pO2 ABG pO2 ABG HCO3 ABG O2 Saturation ABG Base Excess ABG Hemoglobin Oxyhemoglobin Sodium Potassium Chloride Carbon Dioxide BUN Creatinine Glucose POC Glucose 210 H 263 H 248 H Uric Acid Calcium Phosphorus Magnesium Iron TIBC AST ALT Total Creatine Kinase CK-MB (CK-2) Troponin T NT-Pro-B Natriuret Pep Total Protein Albumin Triglycerides HDL Cholesterol Folate Urine WBC (Auto) Urine Creatinine Urine Total Protein Vancomycin Trough 06/13/19 06/13/19 06/13/19 04:32 05:46 13:30 WBC RBC Hgb Hct MCV MCH MCHC RDW Plt Count Lymph % (Auto) [place] % (Auto) Eos % (Auto) Lymph # [place] # Eos # Seg Neutrophils % Seg Neuts % (Manual) Lymphocytes % (Manual) Monocytes % (Manual) Eosinophils % (Manual) Nucleated RBC % Seg Neutrophils # Seg Neutrophils # Man Lymphocytes # (Manual) Monocytes # (Manual) Eosinophils # (Manual) PT INR APTT Fibrinogen POC ABG pH ABG pH POC ABG pCO2 POC ABG pO2 ABG pO2 ABG HCO3 ABG O2 Saturation ABG Base Excess ABG Hemoglobin Oxyhemoglobin Sodium Potassium Chloride Carbon Dioxide BUN 27 H Creatinine 0.7 L Glucose 253 H POC Glucose 201 H 241 H Uric Acid Calcium Phosphorus Magnesium Iron TIBC AST ALT Total Creatine Kinase CK-MB (CK-2) Troponin T NT-Pro-B Natriuret Pep Total Protein Albumin Triglycerides HDL Cholesterol Folate Urine WBC (Auto) Urine Creatinine Urine Total Protein Vancomycin Trough 06/13/19 06/13/19 06/14/19 17:33 23:49 04:50 WBC RBC Hgb Hct MCV MCH MCHC RDW Plt Count Lymph % (Auto) [place] % (Auto) Eos % (Auto) Lymph # [place] # Eos # Seg Neutrophils % Seg Neuts % (Manual) Lymphocytes % (Manual) Monocytes % (Manual) Eosinophils % (Manual) Nucleated RBC % Seg Neutrophils # Seg Neutrophils # Man Lymphocytes # (Manual) Monocytes # (Manual) Eosinophils # (Manual) PT INR APTT Fibrinogen POC ABG pH ABG pH POC ABG pCO2 POC ABG pO2 ABG pO2 ABG HCO3 ABG O2 Saturation ABG Base Excess ABG Hemoglobin Oxyhemoglobin Sodium Potassium Chloride Carbon Dioxide BUN 37 H Creatinine Glucose 256 H POC Glucose 264 H 236 H Uric Acid Calcium Phosphorus Magnesium Iron TIBC AST ALT Total Creatine Kinase CK-MB (CK-2) Troponin T NT-Pro-B Natriuret Pep Total Protein Albumin Triglycerides HDL Cholesterol Folate Urine WBC (Auto) Urine Creatinine Urine Total Protein Vancomycin Trough 06/14/19 06/14/19 06/14/19 05:26 12:31 18:32 WBC RBC Hgb Hct MCV MCH MCHC RDW Plt Count Lymph % (Auto) [place] % (Auto) Eos % (Auto) Lymph # [place] # Eos # Seg Neutrophils % Seg Neuts % (Manual) Lymphocytes % (Manual) Monocytes % (Manual) Eosinophils % (Manual) Nucleated RBC % Seg Neutrophils # Seg Neutrophils # Man Lymphocytes # (Manual) Monocytes # (Manual) Eosinophils # (Manual) PT INR APTT Fibrinogen POC ABG pH ABG pH POC ABG pCO2 POC ABG pO2 ABG pO2 ABG HCO3 ABG O2 Saturation ABG Base Excess ABG Hemoglobin Oxyhemoglobin Sodium Potassium Chloride Carbon Dioxide BUN Creatinine Glucose POC Glucose 239 H 116 H 247 H Uric Acid Calcium Phosphorus Magnesium Iron TIBC AST ALT Total Creatine Kinase CK-MB (CK-2) Troponin T NT-Pro-B Natriuret Pep Total Protein Albumin Triglycerides HDL Cholesterol Folate Urine WBC (Auto) Urine Creatinine Urine Total Protein Vancomycin Trough 06/14/19 06/15/19 06/15/19 23:57 04:05 05:55 WBC RBC Hgb Hct MCV MCH MCHC RDW Plt Count Lymph % (Auto) [place] % (Auto) Eos % (Auto) Lymph # [place] # Eos # Seg Neutrophils % Seg Neuts % (Manual) Lymphocytes % (Manual) Monocytes % (Manual) Eosinophils % (Manual) Nucleated RBC % Seg Neutrophils # Seg Neutrophils # Man Lymphocytes # (Manual) Monocytes # (Manual) Eosinophils # (Manual) PT INR APTT Fibrinogen POC ABG pH ABG pH POC ABG pCO2 POC ABG pO2 ABG pO2 ABG HCO3 ABG O2 Saturation ABG Base Excess ABG Hemoglobin Oxyhemoglobin Sodium Potassium Chloride Carbon Dioxide BUN 46 H Creatinine 0.7 L Glucose 265 H POC Glucose 206 H 265 H Uric Acid Calcium Phosphorus Magnesium Iron TIBC AST ALT Total Creatine Kinase CK-MB (CK-2) Troponin T NT-Pro-B Natriuret Pep Total Protein Albumin Triglycerides HDL Cholesterol Folate Urine WBC (Auto) Urine Creatinine Urine Total Protein Vancomycin Trough 06/15/19 06/15/19 06/15/19 12:08 18:45 23:41 WBC RBC Hgb Hct MCV MCH MCHC RDW Plt Count Lymph % (Auto) [place] % (Auto) Eos % (Auto) Lymph # [place] # Eos # Seg Neutrophils % Seg Neuts % (Manual) Lymphocytes % (Manual) Monocytes % (Manual) Eosinophils % (Manual) Nucleated RBC % Seg Neutrophils # Seg Neutrophils # Man Lymphocytes # (Manual) Monocytes # (Manual) Eosinophils # (Manual) PT INR APTT Fibrinogen POC ABG pH ABG pH POC ABG pCO2 POC ABG pO2 ABG pO2 ABG HCO3 ABG O2 Saturation ABG Base Excess ABG Hemoglobin Oxyhemoglobin Sodium Potassium Chloride Carbon Dioxide BUN Creatinine Glucose POC Glucose 224 H 177 H 193 H Uric Acid Calcium Phosphorus Magnesium Iron TIBC AST ALT Total Creatine Kinase CK-MB (CK-2) Troponin T NT-Pro-B Natriuret Pep Total Protein Albumin Triglycerides HDL Cholesterol Folate Urine WBC (Auto) Urine Creatinine Urine Total Protein Vancomycin Trough 06/16/19 06/16/19 06/16/19 05:00 05:00 05:40 WBC 11.9 H RBC 3.24 L Hgb 9.0 L Hct 29.0 L MCV MCH MCHC 31 L RDW 18.6 H Plt Count 111 L Lymph % (Auto) [place] % (Auto) Eos % (Auto) Lymph # [place] # Eos # Seg Neutrophils % Seg Neuts % (Manual) 92.0 H Lymphocytes % (Manual) 2.0 L Monocytes % (Manual) Eosinophils % (Manual) Nucleated RBC % Seg Neutrophils # Seg Neutrophils # Man 10.9 H Lymphocytes # (Manual) 0.2 L Monocytes # (Manual) Eosinophils # (Manual) PT INR APTT Fibrinogen POC ABG pH ABG pH POC ABG pCO2 POC ABG pO2 ABG pO2 ABG HCO3 ABG O2 Saturation ABG Base Excess ABG Hemoglobin Oxyhemoglobin Sodium Potassium Chloride Carbon Dioxide 33 H BUN 49 H Creatinine 0.7 L Glucose 264 H POC Glucose 247 H Uric Acid Calcium Phosphorus Magnesium Iron TIBC AST ALT Total Creatine Kinase CK-MB (CK-2) Troponin T NT-Pro-B Natriuret Pep Total Protein Albumin Triglycerides HDL Cholesterol Folate Urine WBC (Auto) Urine Creatinine Urine Total Protein Vancomycin Trough 06/16/19 06/16/19 06/16/19 12:03 17:11 18:11 WBC RBC Hgb Hct MCV MCH MCHC RDW Plt Count Lymph % (Auto) [place] % (Auto) Eos % (Auto) Lymph # [place] # Eos # Seg Neutrophils % Seg Neuts % (Manual) Lymphocytes % (Manual) Monocytes % (Manual) Eosinophils % (Manual) Nucleated RBC % Seg Neutrophils # Seg Neutrophils # Man Lymphocytes # (Manual) Monocytes # (Manual) Eosinophils # (Manual) PT INR APTT Fibrinogen POC ABG pH ABG pH 7.289 L POC ABG pCO2 POC ABG pO2 ABG pO2 399.3 H ABG HCO3 30.1 H ABG O2 Saturation 99.6 H ABG Base Excess ABG Hemoglobin 8.6 L Oxyhemoglobin Sodium Potassium Chloride Carbon Dioxide BUN Creatinine Glucose POC Glucose 252 H 254 H Uric Acid Calcium Phosphorus Magnesium Iron TIBC AST ALT Total Creatine Kinase CK-MB (CK-2) Troponin T NT-Pro-B Natriuret Pep Total Protein Albumin Triglycerides HDL Cholesterol Folate Urine WBC (Auto) Urine Creatinine Urine Total Protein Vancomycin Trough 06/16/19 06/17/19 06/17/19 23:16 05:30 05:53 WBC RBC Hgb Hct MCV MCH MCHC RDW Plt Count Lymph % (Auto) [place] % (Auto) Eos % (Auto) Lymph # [place] # Eos # Seg Neutrophils % Seg Neuts % (Manual) Lymphocytes % (Manual) Monocytes % (Manual) Eosinophils % (Manual) Nucleated RBC % Seg Neutrophils # Seg Neutrophils # Man Lymphocytes # (Manual) Monocytes # (Manual) Eosinophils # (Manual) PT INR APTT Fibrinogen POC ABG pH ABG pH POC ABG pCO2 POC ABG pO2 ABG pO2 ABG HCO3 ABG O2 Saturation ABG Base Excess ABG Hemoglobin Oxyhemoglobin Sodium 147 H Potassium Chloride Carbon Dioxide 32 H BUN 60 H Creatinine Glucose 205 H POC Glucose 238 H 211 H Uric Acid Calcium Phosphorus Magnesium Iron TIBC AST ALT Total Creatine Kinase CK-MB (CK-2) Troponin T NT-Pro-B Natriuret Pep Total Protein Albumin Triglycerides HDL Cholesterol Folate Urine WBC (Auto) Urine Creatinine Urine Total Protein Vancomycin Trough 06/17/19 06/17/19 06/17/19 09:50 12:27 12:45 WBC RBC 2.79 L Hgb 8.2 L Hct 24.6 L MCV MCH MCHC RDW 18.5 H Plt Count 95 L Lymph % (Auto) [place] % (Auto) Eos % (Auto) Lymph # [place] # Eos # Seg Neutrophils % Seg Neuts % (Manual) Lymphocytes % (Manual) Monocytes % (Manual) Eosinophils % (Manual) Nucleated RBC % Seg Neutrophils # Seg Neutrophils # Man Lymphocytes # (Manual) Monocytes # (Manual) Eosinophils # (Manual) PT INR APTT Fibrinogen 194 L POC ABG pH ABG pH POC ABG pCO2 POC ABG pO2 ABG pO2 ABG HCO3 ABG O2 Saturation ABG Base Excess ABG Hemoglobin Oxyhemoglobin Sodium Potassium Chloride Carbon Dioxide BUN Creatinine Glucose POC Glucose 224 H Uric Acid Calcium Phosphorus Magnesium Iron TIBC AST ALT Total Creatine Kinase CK-MB (CK-2) Troponin T NT-Pro-B Natriuret Pep Total Protein Albumin Triglycerides HDL Cholesterol Folate Urine WBC (Auto) Urine Creatinine Urine Total Protein Vancomycin Trough 06/17/19 06/17/19 06/17/19 18:41 22:00 23:23 WBC RBC Hgb Hct MCV MCH MCHC RDW Plt Count Lymph % (Auto) [place] % (Auto) Eos % (Auto) Lymph # [place] # Eos # Seg Neutrophils % Seg Neuts % (Manual) Lymphocytes % (Manual) Monocytes % (Manual) Eosinophils % (Manual) Nucleated RBC % Seg Neutrophils # Seg Neutrophils # Man Lymphocytes # (Manual) Monocytes # (Manual) Eosinophils # (Manual) PT INR APTT Fibrinogen POC ABG pH ABG pH POC ABG pCO2 POC ABG pO2 ABG pO2 ABG HCO3 ABG O2 Saturation ABG Base Excess ABG Hemoglobin Oxyhemoglobin Sodium Potassium Chloride Carbon Dioxide BUN Creatinine Glucose POC Glucose 198 H 166 H 171 H Uric Acid Calcium Phosphorus Magnesium Iron TIBC AST ALT Total Creatine Kinase CK-MB (CK-2) Troponin T NT-Pro-B Natriuret Pep Total Protein Albumin Triglycerides HDL Cholesterol Folate Urine WBC (Auto) Urine Creatinine Urine Total Protein Vancomycin Trough 06/17/19 06/18/19 06/18/19 Unknown 03:50 04:25 WBC RBC Hgb Hct MCV MCH MCHC RDW Plt Count Lymph % (Auto) [place] % (Auto) Eos % (Auto) Lymph # [place] # Eos # Seg Neutrophils % Seg Neuts % (Manual) Lymphocytes % (Manual) Monocytes % (Manual) Eosinophils % (Manual) Nucleated RBC % Seg Neutrophils # Seg Neutrophils # Man Lymphocytes # (Manual) Monocytes # (Manual) Eosinophils # (Manual) PT INR APTT Fibrinogen POC ABG pH ABG pH 7.564 H 7.499 H POC ABG pCO2 POC ABG pO2 ABG pO2 238.6 H 130.8 H ABG HCO3 33.6 H 32.5 H ABG O2 Saturation 99.4 H ABG Base Excess 10.6 H 8.5 H ABG Hemoglobin 7.9 L 8.8 L Oxyhemoglobin Sodium 151 H Potassium 3.4 L Chloride Carbon Dioxide BUN 66 H Creatinine Glucose 189 H POC Glucose Uric Acid Calcium Phosphorus Magnesium Iron TIBC AST ALT Total Creatine Kinase CK-MB (CK-2) Troponin T NT-Pro-B Natriuret Pep Total Protein Albumin Triglycerides HDL Cholesterol Folate Urine WBC (Auto) Urine Creatinine Urine Total Protein Vancomycin Trough 06/18/19 06/18/19 06/18/19 05:25 05:27 11:50 WBC RBC 2.61 L Hgb 7.4 L Hct 22.9 L MCV MCH MCHC RDW 19.9 H Plt Count 81 L Lymph % (Auto) 12.9 L [place] % (Auto) 7.7 H Eos % (Auto) Lymph # 1.1 L [place] # Eos # Seg Neutrophils % 77.4 H Seg Neuts % (Manual) Lymphocytes % (Manual) Monocytes % (Manual) Eosinophils % (Manual) Nucleated RBC % Seg Neutrophils # Seg Neutrophils # Man Lymphocytes # (Manual) Monocytes # (Manual) Eosinophils # (Manual) PT INR APTT Fibrinogen POC ABG pH ABG pH POC ABG pCO2 POC ABG pO2 ABG pO2 ABG HCO3 ABG O2 Saturation ABG Base Excess ABG Hemoglobin Oxyhemoglobin Sodium Potassium Chloride Carbon Dioxide BUN Creatinine Glucose POC Glucose 186 H 263 H Uric Acid Calcium Phosphorus Magnesium Iron TIBC AST ALT Total Creatine Kinase CK-MB (CK-2) Troponin T NT-Pro-B Natriuret Pep Total Protein Albumin Triglycerides HDL Cholesterol Folate Urine WBC (Auto) Urine Creatinine Urine Total Protein Vancomycin Trough 06/18/19 06/18/19 06/18/19 18:35 21:31 23:21 WBC RBC Hgb Hct MCV MCH MCHC RDW Plt Count Lymph % (Auto) [place] % (Auto) Eos % (Auto) Lymph # [place] # Eos # Seg Neutrophils % Seg Neuts % (Manual) Lymphocytes % (Manual) Monocytes % (Manual) Eosinophils % (Manual) Nucleated RBC % Seg Neutrophils # Seg Neutrophils # Man Lymphocytes # (Manual) Monocytes # (Manual) Eosinophils # (Manual) PT INR APTT Fibrinogen POC ABG pH ABG pH POC ABG pCO2 POC ABG pO2 ABG pO2 ABG HCO3 ABG O2 Saturation ABG Base Excess ABG Hemoglobin Oxyhemoglobin Sodium Potassium Chloride Carbon Dioxide BUN Creatinine Glucose POC Glucose 154 H 186 H 202 H Uric Acid Calcium Phosphorus Magnesium Iron TIBC AST ALT Total Creatine Kinase CK-MB (CK-2) Troponin T NT-Pro-B Natriuret Pep Total Protein Albumin Triglycerides HDL Cholesterol Folate Urine WBC (Auto) Urine Creatinine Urine Total Protein Vancomycin Trough 06/19/19 06/19/19 06/19/19 03:18 04:30 04:30 WBC RBC 2.65 L Hgb 7.5 L Hct 23.1 L MCV MCH MCHC RDW 19.4 H Plt Count 74 L Lymph % (Auto) 8.8 L [place] % (Auto) 9.4 H Eos % (Auto) 4.7 H Lymph # 0.6 L [place] # Eos # Seg Neutrophils % 76.6 H Seg Neuts % (Manual) Lymphocytes % (Manual) Monocytes % (Manual) Eosinophils % (Manual) Nucleated RBC % Seg Neutrophils # Seg Neutrophils # Man Lymphocytes # (Manual) Monocytes # (Manual) Eosinophils # (Manual) PT INR APTT Fibrinogen POC ABG pH ABG pH 7.452 H POC ABG pCO2 POC ABG pO2 ABG pO2 105.5 H ABG HCO3 32.3 H ABG O2 Saturation ABG Base Excess 7.6 H ABG Hemoglobin 6.9 L Oxyhemoglobin Sodium 150 H Potassium 3.3 L Chloride Carbon Dioxide 31 H BUN 56 H Creatinine Glucose 197 H POC Glucose Uric Acid Calcium Phosphorus Magnesium Iron TIBC AST ALT Total Creatine Kinase CK-MB (CK-2) Troponin T NT-Pro-B Natriuret Pep Total Protein Albumin Triglycerides 210 H HDL Cholesterol Folate Urine WBC (Auto) Urine Creatinine Urine Total Protein Vancomycin Trough 06/19/19 06/19/19 06/19/19 05:24 12:18 18:55 WBC RBC Hgb Hct MCV MCH MCHC RDW Plt Count Lymph % (Auto) [place] % (Auto) Eos % (Auto) Lymph # [place] # Eos # Seg Neutrophils % Seg Neuts % (Manual) Lymphocytes % (Manual) Monocytes % (Manual) Eosinophils % (Manual) Nucleated RBC % Seg Neutrophils # Seg Neutrophils # Man Lymphocytes # (Manual) Monocytes # (Manual) Eosinophils # (Manual) PT INR APTT Fibrinogen POC ABG pH ABG pH POC ABG pCO2 POC ABG pO2 ABG pO2 ABG HCO3 ABG O2 Saturation ABG Base Excess ABG Hemoglobin Oxyhemoglobin Sodium Potassium Chloride Carbon Dioxide BUN Creatinine Glucose POC Glucose 176 H 260 H 192 H Uric Acid Calcium Phosphorus Magnesium Iron TIBC AST ALT Total Creatine Kinase CK-MB (CK-2) Troponin T NT-Pro-B Natriuret Pep Total Protein Albumin Triglycerides HDL Cholesterol Folate Urine WBC (Auto) Urine Creatinine Urine Total Protein Vancomycin Trough 06/19/19 06/19/19 06/20/19 22:57 23:46 04:40 WBC RBC 2.79 L Hgb 7.9 L Hct 24.3 L MCV MCH MCHC RDW 19.6 H Plt Count 92 L Lymph % (Auto) 9.2 L [place] % (Auto) 12.0 H Eos % (Auto) 5.2 H Lymph # 0.9 L [place] # 1.2 H Eos # 0.5 H Seg Neutrophils % 73.3 H Seg Neuts % (Manual) Lymphocytes % (Manual) Monocytes % (Manual) Eosinophils % (Manual) Nucleated RBC % Seg Neutrophils # Seg Neutrophils # Man Lymphocytes # (Manual) Monocytes # (Manual) Eosinophils # (Manual) PT INR APTT Fibrinogen POC ABG pH ABG pH POC ABG pCO2 POC ABG pO2 ABG pO2 ABG HCO3 ABG O2 Saturation ABG Base Excess ABG Hemoglobin Oxyhemoglobin Sodium Potassium Chloride Carbon Dioxide BUN Creatinine Glucose POC Glucose 145 H 216 H Uric Acid Calcium Phosphorus Magnesium Iron TIBC AST ALT Total Creatine Kinase CK-MB (CK-2) Troponin T NT-Pro-B Natriuret Pep Total Protein Albumin Triglycerides HDL Cholesterol Folate Urine WBC (Auto) Urine Creatinine Urine Total Protein Vancomycin Trough 06/20/19 06/20/19 06/20/19 04:40 05:40 05:54 WBC RBC Hgb Hct MCV MCH MCHC RDW Plt Count Lymph % (Auto) [place] % (Auto) Eos % (Auto) Lymph # [place] # Eos # Seg Neutrophils % Seg Neuts % (Manual) Lymphocytes % (Manual) Monocytes % (Manual) Eosinophils % (Manual) Nucleated RBC % Seg Neutrophils # Seg Neutrophils # Man Lymphocytes # (Manual) Monocytes # (Manual) Eosinophils # (Manual) PT INR APTT Fibrinogen POC ABG pH ABG pH 7.455 H POC ABG pCO2 POC ABG pO2 ABG pO2 60.9 L ABG HCO3 30.3 H ABG O2 Saturation 92.3 L ABG Base Excess 5.8 H ABG Hemoglobin 8.2 L Oxyhemoglobin 90.1 L Sodium Potassium 3.5 L Chloride Carbon Dioxide BUN 59 H Creatinine Glucose 200 H POC Glucose 190 H Uric Acid Calcium Phosphorus Magnesium 1.60 L Iron TIBC AST ALT Total Creatine Kinase CK-MB (CK-2) Troponin T NT-Pro-B Natriuret Pep Total Protein Albumin Triglycerides HDL Cholesterol Folate Urine WBC (Auto) Urine Creatinine Urine Total Protein Vancomycin Trough 06/20/19 06/20/19 06/20/19 09:12 09:12 12:24 WBC RBC Hgb Hct MCV MCH MCHC RDW Plt Count Lymph % (Auto) [place] % (Auto) Eos % (Auto) Lymph # [place] # Eos # Seg Neutrophils % Seg Neuts % (Manual) Lymphocytes % (Manual) Monocytes % (Manual) Eosinophils % (Manual) Nucleated RBC % Seg Neutrophils # Seg Neutrophils # Man Lymphocytes # (Manual) Monocytes # (Manual) Eosinophils # (Manual) PT INR APTT Fibrinogen POC ABG pH ABG pH POC ABG pCO2 POC ABG pO2 ABG pO2 ABG HCO3 ABG O2 Saturation ABG Base Excess ABG Hemoglobin Oxyhemoglobin Sodium Potassium Chloride Carbon Dioxide BUN Creatinine Glucose POC Glucose 225 H Uric Acid Calcium Phosphorus Magnesium Iron 45 L TIBC 110 L AST ALT Total Creatine Kinase CK-MB (CK-2) Troponin T NT-Pro-B Natriuret Pep Total Protein Albumin Triglycerides HDL Cholesterol Folate 7.01 L Urine WBC (Auto) Urine Creatinine Urine Total Protein Vancomycin Trough 06/20/19 06/20/19 06/20/19 17:42 21:55 23:24 WBC RBC Hgb Hct MCV MCH MCHC RDW Plt Count Lymph % (Auto) [place] % (Auto) Eos % (Auto) Lymph # [place] # Eos # Seg Neutrophils % Seg Neuts % (Manual) Lymphocytes % (Manual) Monocytes % (Manual) Eosinophils % (Manual) Nucleated RBC % Seg Neutrophils # Seg Neutrophils # Man Lymphocytes # (Manual) Monocytes # (Manual) Eosinophils # (Manual) PT INR APTT Fibrinogen POC ABG pH ABG pH POC ABG pCO2 POC ABG pO2 ABG pO2 ABG HCO3 ABG O2 Saturation ABG Base Excess ABG Hemoglobin Oxyhemoglobin Sodium Potassium Chloride Carbon Dioxide BUN Creatinine Glucose POC Glucose 255 H 218 H 215 H Uric Acid Calcium Phosphorus Magnesium Iron TIBC AST ALT Total Creatine Kinase CK-MB (CK-2) Troponin T NT-Pro-B Natriuret Pep Total Protein Albumin Triglycerides HDL Cholesterol Folate Urine WBC (Auto) Urine Creatinine Urine Total Protein Vancomycin Trough 06/21/19 06/21/19 06/21/19 03:32 03:40 05:20 WBC 12.8 H RBC 3.03 L Hgb 8.5 L Hct 26.2 L MCV MCH MCHC RDW 19.4 H Plt Count 131 L Lymph % (Auto) [place] % (Auto) Eos % (Auto) Lymph # [place] # Eos # Seg Neutrophils % Seg Neuts % (Manual) 78.0 H Lymphocytes % (Manual) 5.0 L Monocytes % (Manual) 11.0 H Eosinophils % (Manual) Nucleated RBC % Seg Neutrophils # Seg Neutrophils # Man 10.0 H Lymphocytes # (Manual) 0.6 L Monocytes # (Manual) 1.4 H Eosinophils # (Manual) 0.5 H PT INR APTT Fibrinogen POC ABG pH ABG pH 7.476 H POC ABG pCO2 POC ABG pO2 ABG pO2 162.0 H ABG HCO3 26.8 H ABG O2 Saturation 99.1 H ABG Base Excess 3.1 H ABG Hemoglobin 8.6 L Oxyhemoglobin Sodium Potassium Chloride Carbon Dioxide BUN Creatinine Glucose POC Glucose 202 H Uric Acid Calcium Phosphorus Magnesium Iron TIBC AST ALT Total Creatine Kinase CK-MB (CK-2) Troponin T NT-Pro-B Natriuret Pep Total Protein Albumin Triglycerides HDL Cholesterol Folate Urine WBC (Auto) Urine Creatinine Urine Total Protein Vancomycin Trough 06/21/19 06/21/19 06/21/19 05:20 12:30 18:18 WBC RBC Hgb Hct MCV MCH MCHC RDW Plt Count Lymph % (Auto) [place] % (Auto) Eos % (Auto) Lymph # [place] # Eos # Seg Neutrophils % Seg Neuts % (Manual) Lymphocytes % (Manual) Monocytes % (Manual) Eosinophils % (Manual) Nucleated RBC % Seg Neutrophils # Seg Neutrophils # Man Lymphocytes # (Manual) Monocytes # (Manual) Eosinophils # (Manual) PT INR APTT Fibrinogen POC ABG pH ABG pH POC ABG pCO2 POC ABG pO2 ABG pO2 ABG HCO3 ABG O2 Saturation ABG Base Excess ABG Hemoglobin Oxyhemoglobin Sodium Potassium Chloride 97.7 L Carbon Dioxide BUN 69 H Creatinine Glucose 239 H POC Glucose 176 H 187 H Uric Acid Calcium Phosphorus Magnesium 2.40 H Iron TIBC AST ALT Total Creatine Kinase CK-MB (CK-2) Troponin T NT-Pro-B Natriuret Pep Total Protein Albumin Triglycerides HDL Cholesterol Folate Urine WBC (Auto) Urine Creatinine Urine Total Protein Vancomycin Trough 06/22/19 06/22/19 06/22/19 04:11 05:30 05:30 WBC 12.6 H RBC 3.10 L Hgb 8.7 L Hct 27.0 L MCV MCH MCHC RDW 19.8 H Plt Count Lymph % (Auto) [place] % (Auto) Eos % (Auto) Lymph # [place] # Eos # Seg Neutrophils % Seg Neuts % (Manual) Lymphocytes % (Manual) Monocytes % (Manual) 10.0 H Eosinophils % (Manual) Nucleated RBC % Seg Neutrophils # Seg Neutrophils # Man 8.7 H Lymphocytes # (Manual) Monocytes # (Manual) 1.3 H Eosinophils # (Manual) PT INR APTT Fibrinogen POC ABG pH ABG pH POC ABG pCO2 POC ABG pO2 ABG pO2 ABG HCO3 27.7 H ABG O2 Saturation ABG Base Excess 3.3 H ABG Hemoglobin 8.5 L Oxyhemoglobin 94.9 L Sodium Potassium Chloride Carbon Dioxide BUN 66 H Creatinine Glucose 103 H POC Glucose Uric Acid Calcium Phosphorus Magnesium Iron TIBC AST ALT Total Creatine Kinase CK-MB (CK-2) Troponin T NT-Pro-B Natriuret Pep Total Protein Albumin Triglycerides HDL Cholesterol Folate Urine WBC (Auto) Urine Creatinine Urine Total Protein Vancomycin Trough 06/22/19 06/22/19 06/23/19 17:43 23:25 02:00 WBC RBC Hgb Hct MCV MCH MCHC RDW Plt Count Lymph % (Auto) [place] % (Auto) Eos % (Auto) Lymph # [place] # Eos # Seg Neutrophils % Seg Neuts % (Manual) Lymphocytes % (Manual) Monocytes % (Manual) Eosinophils % (Manual) Nucleated RBC % Seg Neutrophils # Seg Neutrophils # Man Lymphocytes # (Manual) Monocytes # (Manual) Eosinophils # (Manual) PT INR APTT Fibrinogen POC ABG pH ABG pH 7.469 H POC ABG pCO2 POC ABG pO2 ABG pO2 58.7 L ABG HCO3 28.0 H ABG O2 Saturation 94.6 L ABG Base Excess 4.0 H ABG Hemoglobin 7.1 L Oxyhemoglobin 92.2 L Sodium Potassium Chloride Carbon Dioxide BUN Creatinine Glucose POC Glucose 143 H 106 H Uric Acid Calcium Phosphorus Magnesium Iron TIBC AST ALT Total Creatine Kinase CK-MB (CK-2) Troponin T NT-Pro-B Natriuret Pep Total Protein Albumin Triglycerides HDL Cholesterol Folate Urine WBC (Auto) Urine Creatinine Urine Total Protein Vancomycin Trough 06/23/19 06/23/19 06/23/19 05:24 05:24 11:43 WBC 12.6 H RBC 2.96 L Hgb 8.3 L Hct 25.5 L MCV MCH MCHC RDW 20.2 H Plt Count Lymph % (Auto) [place] % (Auto) Eos % (Auto) Lymph # [place] # Eos # Seg Neutrophils % Seg Neuts % (Manual) Lymphocytes % (Manual) 12.0 L Monocytes % (Manual) 11.0 H Eosinophils % (Manual) 6.0 H Nucleated RBC % Seg Neutrophils # Seg Neutrophils # Man 8.8 H Lymphocytes # (Manual) Monocytes # (Manual) 1.4 H Eosinophils # (Manual) 0.8 H PT INR APTT Fibrinogen POC ABG pH ABG pH POC ABG pCO2 POC ABG pO2 ABG pO2 ABG HCO3 ABG O2 Saturation ABG Base Excess ABG Hemoglobin Oxyhemoglobin Sodium 146 H Potassium 3.5 L Chloride Carbon Dioxide BUN 48 H Creatinine Glucose 123 H POC Glucose 120 H Uric Acid Calcium Phosphorus Magnesium Iron TIBC AST ALT Total Creatine Kinase CK-MB (CK-2) Troponin T NT-Pro-B Natriuret Pep Total Protein Albumin Triglycerides HDL Cholesterol Folate Urine WBC (Auto) Urine Creatinine Urine Total Protein Vancomycin Trough 06/23/19 06/24/19 06/24/19 17:39 06:53 06:53 WBC 12.3 H RBC 2.87 L Hgb 8.0 L Hct 24.9 L MCV MCH MCHC RDW 20.5 H Plt Count Lymph % (Auto) [place] % (Auto) 8.8 H Eos % (Auto) 4.4 H Lymph # [place] # 1.1 H Eos # 0.5 H Seg Neutrophils % Seg Neuts % (Manual) Lymphocytes % (Manual) Monocytes % (Manual) Eosinophils % (Manual) Nucleated RBC % Seg Neutrophils # Seg Neutrophils # Man Lymphocytes # (Manual) Monocytes # (Manual) Eosinophils # (Manual) PT INR APTT Fibrinogen POC ABG pH ABG pH POC ABG pCO2 POC ABG pO2 ABG pO2 ABG HCO3 ABG O2 Saturation ABG Base Excess ABG Hemoglobin Oxyhemoglobin Sodium Potassium Chloride 107.1 H Carbon Dioxide 21 L BUN 29 H Creatinine 0.6 L Glucose 117 H POC Glucose 111 H Uric Acid Calcium Phosphorus Magnesium 1.60 L Iron TIBC AST ALT Total Creatine Kinase CK-MB (CK-2) Troponin T NT-Pro-B Natriuret Pep Total Protein Albumin Triglycerides HDL Cholesterol Folate Urine WBC (Auto) Urine Creatinine Urine Total Protein Vancomycin Trough 06/24/19 06/24/19 06/24/19 12:12 18:01 23:20 WBC RBC Hgb Hct MCV MCH MCHC RDW Plt Count Lymph % (Auto) [place] % (Auto) Eos % (Auto) Lymph # [place] # Eos # Seg Neutrophils % Seg Neuts % (Manual) Lymphocytes % (Manual) Monocytes % (Manual) Eosinophils % (Manual) Nucleated RBC % Seg Neutrophils # Seg Neutrophils # Man Lymphocytes # (Manual) Monocytes # (Manual) Eosinophils # (Manual) PT INR APTT Fibrinogen POC ABG pH ABG pH POC ABG pCO2 POC ABG pO2 ABG pO2 ABG HCO3 ABG O2 Saturation ABG Base Excess ABG Hemoglobin Oxyhemoglobin Sodium Potassium Chloride Carbon Dioxide BUN Creatinine Glucose POC Glucose 158 H 133 H 106 H Uric Acid Calcium Phosphorus Magnesium Iron TIBC AST ALT Total Creatine Kinase CK-MB (CK-2) Troponin T NT-Pro-B Natriuret Pep Total Protein Albumin Triglycerides HDL Cholesterol Folate Urine WBC (Auto) Urine Creatinine Urine Total Protein Vancomycin Trough 06/25/19 06/25/19 06/25/19 04:46 04:46 05:36 WBC 12.3 H RBC 2.98 L Hgb 8.3 L Hct 26.4 L MCV MCH MCHC 31 L RDW 20.1 H Plt Count Lymph % (Auto) [place] % (Auto) Eos % (Auto) Lymph # [place] # Eos # Seg Neutrophils % Seg Neuts % (Manual) Lymphocytes % (Manual) Monocytes % (Manual) 10.0 H Eosinophils % (Manual) Nucleated RBC % Seg Neutrophils # Seg Neutrophils # Man 8.1 H Lymphocytes # (Manual) Monocytes # (Manual) 1.2 H Eosinophils # (Manual) PT INR APTT Fibrinogen POC ABG pH ABG pH POC ABG pCO2 POC ABG pO2 ABG pO2 ABG HCO3 ABG O2 Saturation ABG Base Excess ABG Hemoglobin Oxyhemoglobin Sodium 148 H Potassium Chloride 108.0 H Carbon Dioxide BUN 21 H Creatinine 0.7 L Glucose 120 H POC Glucose 121 H Uric Acid Calcium Phosphorus Magnesium Iron TIBC AST ALT Total Creatine Kinase CK-MB (CK-2) Troponin T NT-Pro-B Natriuret Pep Total Protein Albumin Triglycerides HDL Cholesterol Folate Urine WBC (Auto) Urine Creatinine Urine Total Protein Vancomycin Trough 06/25/19 06/25/19 06/26/19 14:02 18:30 00:01 WBC RBC Hgb Hct MCV MCH MCHC RDW Plt Count Lymph % (Auto) [place] % (Auto) Eos % (Auto) Lymph # [place] # Eos # Seg Neutrophils % Seg Neuts % (Manual) Lymphocytes % (Manual) Monocytes % (Manual) Eosinophils % (Manual) Nucleated RBC % Seg Neutrophils # Seg Neutrophils # Man Lymphocytes # (Manual) Monocytes # (Manual) Eosinophils # (Manual) PT INR APTT Fibrinogen POC ABG pH ABG pH POC ABG pCO2 POC ABG pO2 ABG pO2 ABG HCO3 ABG O2 Saturation ABG Base Excess ABG Hemoglobin Oxyhemoglobin Sodium Potassium Chloride Carbon Dioxide BUN Creatinine Glucose POC Glucose 125 H 145 H 142 H Uric Acid Calcium Phosphorus Magnesium Iron TIBC AST ALT Total Creatine Kinase CK-MB (CK-2) Troponin T NT-Pro-B Natriuret Pep Total Protein Albumin Triglycerides HDL Cholesterol Folate Urine WBC (Auto) Urine Creatinine Urine Total Protein Vancomycin Trough 06/26/19 06/26/19 06/26/19 04:43 04:43 05:41 WBC RBC 3.02 L Hgb 8.6 L Hct 27.0 L MCV MCH MCHC RDW 20.4 H Plt Count Lymph % (Auto) [place] % (Auto) Eos % (Auto) Lymph # [place] # Eos # Seg Neutrophils % Seg Neuts % (Manual) Lymphocytes % (Manual) Monocytes % (Manual) 9.0 H Eosinophils % (Manual) Nucleated RBC % Seg Neutrophils # Seg Neutrophils # Man Lymphocytes # (Manual) Monocytes # (Manual) 1.0 H Eosinophils # (Manual) PT INR APTT Fibrinogen POC ABG pH ABG pH POC ABG pCO2 POC ABG pO2 ABG pO2 ABG HCO3 ABG O2 Saturation ABG Base Excess ABG Hemoglobin Oxyhemoglobin Sodium Potassium Chloride Carbon Dioxide BUN Creatinine 0.7 L Glucose 111 H POC Glucose 110 H Uric Acid Calcium Phosphorus Magnesium 1.60 L Iron TIBC AST ALT Total Creatine Kinase CK-MB (CK-2) Troponin T NT-Pro-B Natriuret Pep Total Protein Albumin Triglycerides HDL Cholesterol Folate Urine WBC (Auto) Urine Creatinine Urine Total Protein Vancomycin Trough 06/26/19 06/26/19 06/27/19 11:55 18:07 12:10 WBC RBC Hgb Hct MCV MCH MCHC RDW Plt Count Lymph % (Auto) [place] % (Auto) Eos % (Auto) Lymph # [place] # Eos # Seg Neutrophils % Seg Neuts % (Manual) Lymphocytes % (Manual) Monocytes % (Manual) Eosinophils % (Manual) Nucleated RBC % Seg Neutrophils # Seg Neutrophils # Man Lymphocytes # (Manual) Monocytes # (Manual) Eosinophils # (Manual) PT INR APTT Fibrinogen POC ABG pH ABG pH POC ABG pCO2 POC ABG pO2 ABG pO2 ABG HCO3 ABG O2 Saturation ABG Base Excess ABG Hemoglobin Oxyhemoglobin Sodium Potassium Chloride Carbon Dioxide BUN Creatinine Glucose POC Glucose 159 H 107 H 121 H Uric Acid Calcium Phosphorus Magnesium Iron TIBC AST ALT Total Creatine Kinase CK-MB (CK-2) Troponin T NT-Pro-B Natriuret Pep Total Protein Albumin Triglycerides HDL Cholesterol Folate Urine WBC (Auto) Urine Creatinine Urine Total Protein Vancomycin Trough 06/28/19 06/29/19 06/29/19 05:54 13:10 17:58 WBC RBC Hgb Hct MCV MCH MCHC RDW Plt Count Lymph % (Auto) [place] % (Auto) Eos % (Auto) Lymph # [place] # Eos # Seg Neutrophils % Seg Neuts % (Manual) Lymphocytes % (Manual) Monocytes % (Manual) Eosinophils % (Manual) Nucleated RBC % Seg Neutrophils # Seg Neutrophils # Man Lymphocytes # (Manual) Monocytes # (Manual) Eosinophils # (Manual) PT INR APTT Fibrinogen POC ABG pH ABG pH POC ABG pCO2 POC ABG pO2 ABG pO2 ABG HCO3 ABG O2 Saturation ABG Base Excess ABG Hemoglobin Oxyhemoglobin Sodium Potassium Chloride Carbon Dioxide BUN Creatinine Glucose POC Glucose 107 H 115 H 108 H Uric Acid Calcium Phosphorus Magnesium Iron TIBC AST ALT Total Creatine Kinase CK-MB (CK-2) Troponin T NT-Pro-B Natriuret Pep Total Protein Albumin Triglycerides HDL Cholesterol Folate Urine WBC (Auto) Urine Creatinine Urine Total Protein Vancomycin Trough 06/30/19 06/30/19 07/01/19 12:00 18:13 05:49 WBC RBC Hgb Hct MCV MCH MCHC RDW Plt Count Lymph % (Auto) [place] % (Auto) Eos % (Auto) Lymph # [place] # Eos # Seg Neutrophils % Seg Neuts % (Manual) Lymphocytes % (Manual) Monocytes % (Manual) Eosinophils % (Manual) Nucleated RBC % Seg Neutrophils # Seg Neutrophils # Man Lymphocytes # (Manual) Monocytes # (Manual) Eosinophils # (Manual) PT INR APTT Fibrinogen POC ABG pH ABG pH POC ABG pCO2 POC ABG pO2 ABG pO2 ABG HCO3 ABG O2 Saturation ABG Base Excess ABG Hemoglobin Oxyhemoglobin Sodium Potassium Chloride Carbon Dioxide BUN Creatinine Glucose POC Glucose 108 H 114 H 114 H Uric Acid Calcium Phosphorus Magnesium Iron TIBC AST ALT Total Creatine Kinase CK-MB (CK-2) Troponin T NT-Pro-B Natriuret Pep Total Protein Albumin Triglycerides HDL Cholesterol Folate Urine WBC (Auto) Urine Creatinine Urine Total Protein Vancomycin Trough 07/01/19 07/01/19 07/01/19 07:58 07:58 12:06 WBC 11.5 H RBC 3.24 L Hgb 9.0 L Hct 28.4 L MCV MCH MCHC RDW 20.8 H Plt Count Lymph % (Auto) 8.3 L [place] % (Auto) 10.0 H Eos % (Auto) Lymph # 0.9 L [place] # 1.2 H Eos # Seg Neutrophils % 79.4 H Seg Neuts % (Manual) Lymphocytes % (Manual) Monocytes % (Manual) Eosinophils % (Manual) Nucleated RBC % Seg Neutrophils # 9.1 H Seg Neutrophils # Man Lymphocytes # (Manual) Monocytes # (Manual) Eosinophils # (Manual) PT INR APTT Fibrinogen POC ABG pH ABG pH POC ABG pCO2 POC ABG pO2 ABG pO2 ABG HCO3 ABG O2 Saturation ABG Base Excess ABG Hemoglobin Oxyhemoglobin Sodium Potassium Chloride Carbon Dioxide BUN Creatinine 0.4 L Glucose 130 H POC Glucose 133 H Uric Acid Calcium Phosphorus Magnesium Iron TIBC AST ALT Total Creatine Kinase CK-MB (CK-2) Troponin T NT-Pro-B Natriuret Pep Total Protein Albumin Triglycerides HDL Cholesterol Folate Urine WBC (Auto) Urine Creatinine Urine Total Protein Vancomycin Trough 07/02/19 07/02/19 07/02/19 05:54 13:27 13:39 WBC RBC Hgb Hct MCV MCH MCHC RDW Plt Count Lymph % (Auto) [place] % (Auto) Eos % (Auto) Lymph # [place] # Eos # Seg Neutrophils % Seg Neuts % (Manual) Lymphocytes % (Manual) Monocytes % (Manual) Eosinophils % (Manual) Nucleated RBC % Seg Neutrophils # Seg Neutrophils # Man Lymphocytes # (Manual) Monocytes # (Manual) Eosinophils # (Manual) PT INR APTT Fibrinogen POC ABG pH ABG pH POC ABG pCO2 POC ABG pO2 ABG pO2 ABG HCO3 ABG O2 Saturation ABG Base Excess ABG Hemoglobin Oxyhemoglobin Sodium Potassium Chloride Carbon Dioxide BUN Creatinine Glucose POC Glucose 111 H 123 H 116 H Uric Acid Calcium Phosphorus Magnesium Iron TIBC AST ALT Total Creatine Kinase CK-MB (CK-2) Troponin T NT-Pro-B Natriuret Pep Total Protein Albumin Triglycerides HDL Cholesterol Folate Urine WBC (Auto) Urine Creatinine Urine Total Protein Vancomycin Trough 07/02/19 07/03/19 07/04/19 18:00 06:06 12:15 WBC RBC Hgb Hct MCV MCH MCHC RDW Plt Count Lymph % (Auto) [place] % (Auto) Eos % (Auto) Lymph # [place] # Eos # Seg Neutrophils % Seg Neuts % (Manual) Lymphocytes % (Manual) Monocytes % (Manual) Eosinophils % (Manual) Nucleated RBC % Seg Neutrophils # Seg Neutrophils # Man Lymphocytes # (Manual) Monocytes # (Manual) Eosinophils # (Manual) PT INR APTT Fibrinogen POC ABG pH ABG pH POC ABG pCO2 POC ABG pO2 ABG pO2 ABG HCO3 ABG O2 Saturation ABG Base Excess ABG Hemoglobin Oxyhemoglobin Sodium Potassium Chloride Carbon Dioxide BUN Creatinine Glucose POC Glucose 118 H 127 H 122 H Uric Acid Calcium Phosphorus Magnesium Iron TIBC AST ALT Total Creatine Kinase CK-MB (CK-2) Troponin T NT-Pro-B Natriuret Pep Total Protein Albumin Triglycerides HDL Cholesterol Folate Urine WBC (Auto) Urine Creatinine Urine Total Protein Vancomycin Trough
--- NOTE | 2019-07-04 14:03 | Progress Note ---
Assessment and Plan /Febrile illness - spiking low grade temp - could be from aspiration pneumonitis ? cxr unremarkable - wait for blood Cx and UA /Acute respiratory failure; vent dependent/status post trach and PEG Off ventilatory support, on T-piece ,trach care, nebulizers Pulmonary critical following /Persistent fevers; leukocytosis , resolved Internal jugular tunneled hemodialysis catheter removed ID evaluated , off antibiotics /Obesity hypoventilation syndrome Status post tracheostomy, titrate O2 sats to more than 90% /Status post cardiac arrest mild anoxic brain injury patient's mentation is improved ., EEG was negative for seizures and neurology evaluated /Severe malnutrition Dysphasia; dw with his mom, she is agreeable to PEG tube, GS consulted Dietitian input appreciated, continue tube feeds /Anemia of chronic disease : Closely monitor H&H and transfuse as needed. 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 Now Patient is on Eliquis /-Acute kidney injury due to ATN : Requiring dialysis Resolved, nephrology following. /Hypernatremia/Hypokalemia/ hypomagnesemia: Resolved /Morbid obesity; will need weight loss program upon discharge /DVT prophylaxis; scd /Eliquis Plan of care discussed with the patient and his nurse Physical therapy/occupational therapy when patient is stable Disposition ; home with home health versus placement when patient is stable. Social and insurance issues. Brief History 34-year-old man with morbid obesity was brought to the hospital for shortness of breath and insomnia. He was found to have severe hypoxia and bradycardia who t hen became pulseless, he was cyanotic and he was intubated after receiving CPR with 2 rounds of epinephrine. Patient was intubated, extubated and reintubated, unable to wean vent dependent, underwent trach and PEG on 06/22/2019, later weaned off vent on T piece alert and awake in mild distress. Discharge Planning per case management [social/insurance issues]. Hospitalist Physical General appearance: Present: mild distress, well-nourished, obese (morbidly obese), other (tracheostomy /T-piece) - EENT Eyes: Present: PERRL, EOM intact - Neck Neck: Present: supple, normal ROM - Respiratory Respiratory effort: normal Respiratory: bilateral: diminished, rales, rhonchi, negative: wheezing - Cardiovascular Rhythm: regular Heart Sounds: Present: S1 & S2 - Extremities Extremities: no ischemia, No edema - Abdominal General gastrointestinal: soft, non-tender, non-distended, normal bowel sounds, other (PEG tube in place) - Integumentary Integumentary: Present: clear, warm - Psychiatric Psychiatric: appropriate mood/affect, cooperative - Neurologic Neurologic: moves all extremities Subjective Date of service: 07/04/19 Principal diagnosis: anemia - LOw PLT Interval history: Patient seen and examined. Medical records and medication list reviewed. Patient remained minimally responsive on mechanical ventilation with trach intermittently febrile Discussed plan of care at bedside with patient's RN. No family member at the bedside Objective - Constitutional Vitals: Vital Signs - 12hr 07/04/19 07/04/19 07/04/19 03:01 04:00 04:01 Temperature 98.2 F Pulse Rate 100 H 98 H Pulse Rate [ 91 H From Monitor] Respiratory 27 H 25 H Rate Blood Pressure 116/57 76/51 O2 Sat by Pulse 97 98 98 Oximetry O2 Sat by Pulse Oximetry [ Assessment] 07/04/19 07/04/19 07/04/19 05:01 06:01 07:00 Temperature Pulse Rate 98 H 96 H 101 H Pulse Rate [ From Monitor] Respiratory 18 26 H 29 H Rate Blood Pressure 95/70 95/70 95/70 O2 Sat by Pulse 99 99 97 Oximetry O2 Sat by Pulse Oximetry [ Assessment] 07/04/19 07/04/19 07/04/19 08:00 09:00 10:00 Temperature 99.7 F H Pulse Rate 102 H 106 H 105 H Pulse Rate [ From Monitor] Respiratory 26 H 32 H 28 H Rate Blood Pressure 133/75 133/75 133/75 O2 Sat by Pulse 95 92 98 Oximetry O2 Sat by Pulse 99 Oximetry [ Assessment] 07/04/19 07/04/19 07/04/19 11:00 12:00 13:00 Temperature 100.2 F H Pulse Rate 106 H 106 H 99 H Pulse Rate [ From Monitor] Respiratory 31 H 12 32 H Rate Blood Pressure 133/75 128/76 128/76 O2 Sat by Pulse 96 97 97 Oximetry O2 Sat by Pulse Oximetry [ Assessment] 07/04/19 14:00 Temperature Pulse Rate 105 H Pulse Rate [ From Monitor] Respiratory 34 H Rate Blood Pressure 128/76 O2 Sat by Pulse 97 Oximetry O2 Sat by Pulse Oximetry [ Assessment] - Labs CBC & Chem 7: 07/01/19 07:58 07/01/19 07:58 Labs: Abnormal lab results 07/04/19 Range/Units 12:15 POC Glucose 122 H (70-105)
[2019-07-05] MEDS: INSULIN LISPRO 100 UNIT/ML SUB-Q SCH ×4 (06:37→18:35)
[2019-07-05] MEDS: predniSONE 10 MG TAB PO SCH (09:56)
[2019-07-05] MEDS: hydroCHLOROthiazide 25 MG TAB PO SCH ×2 (09:57→10:33)
[2019-07-05] MEDS: amLODIPine 10 MG TAB PO SCH (09:57)
[2019-07-05] MEDS: FAMOTIDINE 20 MG TAB PO SCH ×2 (09:57→23:03)
[2019-07-05] MEDS: POTASSIUM CHLORIDE 20 MEQ PACKET FEEDTUBE SCH (10:32)
[2019-07-05] MEDS: APIXABAN 2.5 MG TAB PO SCH ×2 (11:00→23:02)
[2019-07-05] MEDS: FERROUS SULFATE 308 MG (62mg Elemental Iron) / 7 ML ELIXIR PO SCH (11:00)
[2019-07-05] MEDS: MULTIVITAMINS 5 ML ORAL LIQUID PO SCH (11:00)
--- NOTE | 2019-07-05 15:33 | Progress Note ---
Assessment and Plan Cultures: Blood cultures 05/11/19: no growth thus far Blood cultures 05/18/19 pending Sputum culture 05/11/19: no growth thus far urine culture: no growth resp culture: no growth Blood culture 05/18/2019: no growth thus far urine culture 05/20/2019: normal skin shandra, Xenia albicans sputum culture 05/20/2019: Xenia albicans Blood culture 05/23/2019: no growth 06/24/2019 blood culture: negative 06/24/2019 sputum culture: negative New cultures: Blood culture 07/03/2019: Pending A/P: 34-year-old male with obesity admitted with: #New fever and leucocytosis: etiology unclear, follow up cultures. Repeat CXR. hold off on antibiotics for now. #Initial Fever, SIRS with shock: shock resolved, intermittently febrile. Initially felt to be ?aspiration related. Apparently was using CPAP. Persistent febrile again, likely ?UTI. Repeat UA showed pyuria, had indwelling Han which was removed again 05/20. Urine culture with normal skin shandra. Fevers now recurred since 05/17. Should eval for worsening pneumonia, sinusitis, but unable to fit in CT scan. candiduria also generally does not require treatment, but in this patient with recurrent fever, reasonable to consider a trial of fluconazole renally adjusted. Likely drug fever, given eosinophilia. Fever resolved with steroids. #Diffuse rash with eosinophilia: abx classes were changed on 05/25/2019 and then all abx stopped on 05/27/2019. #Acute hypoxic hypercapneic respiratory failure, possibly obesity hypoventilation syndrome: on the vent. Pulmonary managing. Xenia in sputum does not need treatment, it almost never causes a pneumonia and is reflective of colonization, overgrowth in the setting of abx use #Morbid obesity #CARLA: resolved. #Acute encephalopathy with ?seizure activity: persistent fevers. Had received empiric meningitis coverage earlier this admission #UTI: s/p han removal on 05/20 Recs: - hold off on empiric antibiotics for now as afebrile over the last 24 hours. - repeat chest x ray - follow up repeat blood cultures. We will follow Nancy Bearden MD [facility] M: [phone] O: [phone] F: [phone] Subjective Date of service: 07/05/19 Principal diagnosis: anemia - LOw PLT Interval history: Afebrile over last 24 hours, however was febrile prior to that. Not currently on antibiotics Objective - Exam Narrative Exam: Constitutional: awake, alert. Morbid obesity Head, Ears, Nose: Normocephalic, atraumatic. External ears, nose normal Eyes: Conjunctivae/corneas clear. No icterus. No ptosis. Neck: trach + Cardiovascular: S1, S2 normal. Respiratory: Good air entry, clear to auscultation bilaterally GI: Soft, non-tender; bowel sounds normal. No peritoneal signs Musculoskeletal: No pedal edema, no cyanosis. Skin: no rash, no abscess Hem/Lymphatic: No palpable cervical or supraclavicular nodes. No lymphangitis Psych: calm, no agitation Neurological: awake, alert, obeys commands, communicative - Constitutional Vitals: Vital Signs Temp Pulse Resp BP Pulse Ox 99.5 F 99 H 30 H 148/82 98 07/05/19 12:00 07/05/19 09:57 07/05/19 06:00 07/05/19 09:57 07/05/19 08:50 Temperature -Last 24 Hours Temperature 99.5 F Temperature 99.6 F Temperature 100.1 F Temperature 99.8 F Temperature 99.4 F Temperature 99.8 F - Labs CBC & Chem 7: 07/01/19 07:58 07/01/19 07:58 Labs: Abnormal lab results 07/04/19 07/04/19 07/05/19 Range/Units 18:09 23:48 06:30 POC Glucose 115 H 110 H 106 H (70-105) 07/05/19 Range/Units 11:55 POC Glucose 106 H (70-105)
--- NOTE | 2019-07-05 21:40 | XRay Report ---
CHEST 1 VIEW INDICATION / CLINICAL INFORMATION: r/o PNA. COMPARISON: 07/02/19 FINDINGS: SUPPORT DEVICES: Tracheostomy tube appears unchanged HEART / MEDIASTINUM: Unchanged LUNGS / PLEURA: There is mild venous congestion.. No pneumothorax. ADDITIONAL FINDINGS: No significant additional findings. IMPRESSION: 1. No significant change. Signer Name: Bony Israel MD Signed: 07/05/2019 9:36 PM Workstation Name: [id number]
[2019-07-06] MEDS: INSULIN LISPRO 100 UNIT/ML SUB-Q SCH ×3 (05:36→19:37)
[2019-07-06] MEDS: SCOPOLAMINE TRANSDERMAL PATCH 72 HR TD SCH (08:50)
[2019-07-06] MEDS: MULTIVITAMINS 5 ML ORAL LIQUID PO SCH (10:29)
[2019-07-06] MEDS: FERROUS SULFATE 308 MG (62mg Elemental Iron) / 7 ML ELIXIR PO SCH (10:29)
[2019-07-06] MEDS: POTASSIUM CHLORIDE 20 MEQ PACKET FEEDTUBE SCH (10:30)
[2019-07-06] MEDS: predniSONE 10 MG TAB PO SCH (10:30)
[2019-07-06] MEDS: amLODIPine 10 MG TAB PO SCH (10:30)
[2019-07-06] MEDS: FAMOTIDINE 20 MG TAB PO SCH ×2 (10:31→21:58)
[2019-07-06] MEDS: APIXABAN 2.5 MG TAB PO SCH ×2 (10:43→21:58)
[2019-07-06] MEDS: hydroCHLOROthiazide 25 MG TAB PO SCH (10:43)
--- NOTE | 2019-07-06 14:37 | Progress Note ---
Assessment and Plan Cultures: Blood cultures 05/11/19: no growth thus far Blood cultures 05/18/19 pending Sputum culture 05/11/19: no growth thus far urine culture: no growth resp culture: no growth Blood culture 05/18/2019: no growth thus far urine culture 05/20/2019: normal skin shandra, Xenia albicans sputum culture 05/20/2019: Xenia albicans Blood culture 05/23/2019: no growth 06/24/2019 blood culture: negative 06/24/2019 sputum culture: negative New cultures: Blood culture 07/03/2019: Pending A/P: 34-year-old male with obesity admitted with: #New fever and leucocytosis: etiology unclear, follow up cultures. Repeat CXR. hold off on antibiotics for now. #Initial Fever, SIRS with shock: shock resolved, intermittently febrile. Initially felt to be ?aspiration related. Apparently was using CPAP. Persistent febrile again, likely ?UTI. Repeat UA showed pyuria, had indwelling Han which was removed again 05/20. Urine culture with normal skin shandra. Fevers now recurred since 05/17. Should eval for worsening pneumonia, sinusitis, but unable to fit in CT scan. candiduria also generally does not require treatment, but in this patient with recurrent fever, reasonable to consider a trial of fluconazole renally adjusted. Likely drug fever, given eosinophilia. Fever resolved with steroids. #Diffuse rash with eosinophilia: abx classes were changed on 05/25/2019 and then all abx stopped on 05/27/2019. #Acute hypoxic hypercapneic respiratory failure, possibly obesity hypoventilation syndrome: on the vent. Pulmonary managing. Xenia in sputum does not need treatment, it almost never causes a pneumonia and is reflective of colonization, overgrowth in the setting of abx use #Morbid obesity #CARLA: resolved. #Acute encephalopathy with ?seizure activity: persistent fevers. Had received empiric meningitis coverage earlier this admission #UTI: s/p han removal on 05/20 Recs: - hold off on empiric antibiotics - follow up repeat blood cultures. We will follow MD Ayse Castro [facility] M: [phone] O: [phone] F: [phone] Subjective Date of service: 07/06/19 Principal diagnosis: anemia - LOw PLT Interval history: Febrile to 100.7. Chest x-ray with mild venous congestion but no obvious pneumonia. Objective - Exam Narrative Exam: Constitutional: awake, alert. Morbid obesity Head, Ears, Nose: Normocephalic, atraumatic. External ears, nose normal Neck: trach + Cardiovascular: S1, S2 normal. Respiratory: Good air entry, clear to auscultation bilaterally GI: Soft, non-tender; bowel sounds normal. No peritoneal signs Musculoskeletal: No pedal edema, no cyanosis. Skin: no rash, no abscess Hem/Lymphatic: No palpable cervical or supraclavicular nodes. No lymphangitis Psych: calm, no agitation Neurological: awake, alert, obeys commands, communicative - Constitutional Vitals: Vital Signs Temp Pulse Resp BP Pulse Ox 99.3 F 97 H 29 H 140/83 98 07/06/19 12:00 07/06/19 10:30 07/06/19 06:01 07/06/19 10:30 07/06/19 06:01 Temperature -Last 24 Hours Temperature 99.3 F Temperature 99.7 F Temperature 100.7 F Temperature 99.1 F Temperature 99.4 F Temperature 99.8 F - Labs CBC & Chem 7: 07/01/19 07:58 07/01/19 07:58 Labs: Abnormal lab results 07/05/19 07/05/19 07/06/19 Range/Units 18:16 23:38 06:01 POC Glucose 120 H 114 H 115 H (70-105) 07/06/19 Range/Units 12:28 POC Glucose 114 H (70-105)
--- NOTE | 2019-07-06 16:53 | Progress Note ---
Assessment and Plan /Febrile illness - spiking low grade temp intermittently - Internal jugular tunneled hemodialysis catheter removed - could be from aspiration pneumonitis ? cxr unremarkable - negative blood Cx and UA - ID following, monitor off abx /Acute respiratory failure; vent dependent/status post trach and PEG Off ventilatory support, on T-piece ,trach care, nebulizers Pulmonary critical following /Obesity hypoventilation syndrome Status post tracheostomy, titrate O2 sats to more than 90% /Status post cardiac arrest mild anoxic brain injury patient's mentation is improved ., EEG was negative for seizures and neurology evaluated /Severe malnutrition Dysphasia; dw with his mom, she is agreeable to PEG tube, GS consulted Dietitian input appreciated, continue tube feeds /Anemia of chronic disease : Closely monitor H&H and transfuse as needed. 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 Now Patient is on Eliquis /-Acute kidney injury due to ATN : Requiring dialysis Resolved, nephrology following. /Hypernatremia/Hypokalemia/ hypomagnesemia: Resolved /Morbid obesity; will need weight loss program upon discharge /DVT prophylaxis; scd /Eliquis Plan of care discussed with the patient and his nurse Physical therapy/occupational therapy when patient is stable Disposition ; home with home health versus placement when patient is stable. Social and insurance issues. Brief History 34-year-old man with morbid obesity was brought to the hospital for shortness of breath and insomnia. He was found to have severe hypoxia and bradycardia who then became pulseless, he was cyanotic and he was intubated after receiving CPR with 2 rounds of epinephrine. Patient was intubated, extubated and reintubated, unable to wean vent dependent, underwent trach and PEG on 06/22/2019, later weaned off vent on T piece alert and awake in mild distress. Discharge Planning per case management [social/insurance issues]. Hospitalist Physical General appearance: Present: mild distress, well-nourished, obese (morbidly obese), other (tracheostomy /T-piece) - EENT Eyes: Present: PERRL, EOM intact - Neck Neck: Present: supple, normal ROM - Respiratory Respiratory effort: normal Respiratory: bilateral: diminished, rales, rhonchi, negative: wheezing - Cardiovascular Rhythm: regular Heart Sounds: Present: S1 & S2 - Extremities Extremities: no ischemia, No edema - Abdominal General gastrointestinal: soft, non-tender, non-distended, normal bowel sounds, other (PEG tube in place) - Integumentary Integumentary: Present: clear, warm - Psychiatric Psychiatric: appropriate mood/affect, cooperative - Neurologic Neurologic: moves all extremities Subjective Date of service: 07/05/19 Principal diagnosis: anemia - LOw PLT Interval history: Patient seen and examined. Medical records and medication list reviewed. Patient remained minimally responsive on mechanical ventilation with trach Discussed plan of care at bedside with patient's RN. No family member at the bedside Objective - Constitutional Vitals: Vital Signs - 12hr 07/06/19 07/06/19 07/06/19 05:35 06:01 08:00 Temperature 99.7 F H Pulse Rate 95 H 93 H Respiratory 29 H Rate Blood Pressure 136/84 136/84 O2 Sat by Pulse 98 Oximetry 07/06/19 07/06/19 07/06/19 10:30 12:00 16:00 Temperature 99.3 F 99.9 F H Pulse Rate 97 H Respiratory Rate Blood Pressure 140/83 O2 Sat by Pulse Oximetry - Labs CBC & Chem 7: 07/01/19 07:58 07/01/19 07:58 Labs: Abnormal lab results 07/05/19 07/05/19 07/06/19 Range/Units 18:16 23:38 06:01 POC Glucose 120 H 114 H 115 H (70-105) 07/06/19 Range/Units 12:28 POC Glucose 114 H (70-105)
[2019-07-07] MEDS: INSULIN LISPRO 100 UNIT/ML SUB-Q SCH ×2 (05:20→13:25)
[2019-07-07] MEDS: POTASSIUM CHLORIDE 20 MEQ PACKET FEEDTUBE SCH (10:06)
[2019-07-07] MEDS: FAMOTIDINE 20 MG TAB PO SCH ×2 (10:07→21:13)
[2019-07-07] MEDS: amLODIPine 10 MG TAB PO SCH (10:07)
[2019-07-07] MEDS: predniSONE 10 MG TAB PO SCH (10:07)
[2019-07-07] MEDS: hydroCHLOROthiazide 25 MG TAB PO SCH (10:07)
[2019-07-07] MEDS: APIXABAN 2.5 MG TAB PO SCH ×2 (10:07→21:13)
[2019-07-07] MEDS: FERROUS SULFATE 308 MG (62mg Elemental Iron) / 7 ML ELIXIR PO SCH (10:08)
[2019-07-07] MEDS: MULTIVITAMINS 5 ML ORAL LIQUID PO SCH (10:08)
--- NOTE | 2019-07-07 11:01 | Progress Note ---
Assessment and Plan 34 y/o male with acute hypoxic, hypercapnic respiratory failure now with trach and uncontrolled hypertension. 07/07/19. Stopping prednisone as this wasn't stopped over the weekend. Needs suctioning and asked that if transferred please place patient close as possible to nursing station. 07/06/19: Continue IMCU care. Requires frequent suctioning. PT/OT 07/02/19: Patient should not be transferred to the floor. Although his pulm status is stable, he is very high risk for decompensation and if the incident that happened last night, happened on the floor, that may have been his demise. Ok with right arm restraint for now. 07/01/2019: Continue current care. PT/OT. Work on discharge planning. steroids to 5 daily, will likely stop Friday or Friday. Stable but my concern is that if he goes to the floor, he will not get the proper suctioning needed. Will continue IMCU service 06/26/2019: Will discontinue vent from room. patient was placed on vent last night. Not sure why. Will place orders for continued T-piece. Appears he was doing well with no issues. If tolerates being off vent tonight, transition to step down tomorrow. Increase HCTZ to 25 06/25/2019: Continue T-piece today as tolerated. Only rest of vent if needed. If not needed tonight then will discontinue vent from room. Spoke with IR, and they will remove Perm cath today as this could be a cause of fevers. Follow up cultures and ID recs. Will increase Free H2O to [id number]. Change steroids to 10 PO starting tomorrow morning. Added scheduled BP meds. 06/24/2019: Will attempt T-piece later today, if tolerates, then will continue trial indefinitely. PT/OT will need to start seeing him again. Will drop steroids to 10 daily (PO) starting Friday morning. 06/23/2019: PSV all day today and tomorrow. Will start T-piece either tomorrow or Friday. Tolerating Feeds 06/22/2019: Patient scheduled for OR today. Plan as outlined in Dr. Saez's note from yesterday. Discussed with patient again this am. Really appreciate surgery help with this and the promptness of procedure. Will follow up post-op later today. 06/21/2019: Unfortunately re-intubated last week. Will need Trach and Peg, but I doubt peg will happen secondary to his size. Will discuss with surgery and maybe they can just put in a number 6 XLT from the start. I think he will get off the vent relatively quickly and can start to eat. This trach will be indefinite. I have explained this to him. I have not seen his family at the bedside during this admission but Im told they come in the evenings. 06/12/2019: Started HCTZ 50 daily and Labetalol 100 TID. Will increase Labetalol to 200 TID. Already on Clonidine patch. Continue Minoxidil. Will start to wean drip. PT/OT. Feeds through NG now that this is in place. Will need speech re-evaluation. Will order NT suctioning at least [id number] for the next 24 hours. 06/11/2019: Bipap at night and PRN. Na levels are increasing. Agree with D5W. Unable to place DH, several nurses tried. Will ask speech to come by and reassess now that patient is more willing to cooperate. . Continue PT/OT, sat up on side of bed yesterday. Continue IMCU monitoring for now. As stated below, patient was intubated for 37 days. CCT 31 minutes. Subjective Date of service: 07/07/19 Principal diagnosis: anemia - LOw PLT Interval history: No acute events. Remains on T-piece. Objective Vital Signs - 12hr 07/07/19 07/07/19 07/07/19 00:00 02:01 04:00 Temperature 97.6 F 100.4 F H Pulse Rate 89 97 H 100 H Pulse Rate [ 85 103 H From Monitor] Respiratory 22 16 15 Rate Blood Pressure 148/91 148/91 160/93 O2 Sat by Pulse 99 98 99 Oximetry O2 Sat by Pulse Oximetry [ Assessment] 07/07/19 07/07/19 07/07/19 05:19 06:01 08:00 Temperature 99.4 F Pulse Rate 102 H 92 H Pulse Rate [ From Monitor] Respiratory 15 Rate Blood Pressure 160/93 160/93 O2 Sat by Pulse 96 Oximetry O2 Sat by Pulse Oximetry [ Assessment] 07/07/19 07/07/19 07/07/19 08:01 09:15 09:20 Temperature Pulse Rate 98 H Pulse Rate [ From Monitor] Respiratory Rate Blood Pressure 121/93 O2 Sat by Pulse 99 96 Oximetry O2 Sat by Pulse 96 Oximetry [ Assessment] 07/07/19 10:07 Temperature Pulse Rate 98 H Pulse Rate [ From Monitor] Respiratory Rate Blood Pressure 121/93 O2 Sat by Pulse Oximetry O2 Sat by Pulse Oximetry [ Assessment] Constitutional: other (morbidly obese male, critically ill on vent) Eyes: non-icteric ENT: oropharynx moist Neck: other (extremely large in circumference) Effort: normal Ascultation: Bilateral: diminished breath sounds (secondary to body habitus), rhonchi, other (Upper airway noises due to secretions) Cardiovascular: regular rate and rhythm (no mrg) Gastrointestinal: normoactive bowel sounds, soft, non-tender, other (obese) Integumentary: other (L hand is wrapped) Extremities: no cyanosis, pink and warm, other (1+ generalized edema) Neurologic: normal mental status, non-focal exam Psychiatric: mood appropriate, affect normal CBC and BMP: 07/01/19 07:58 07/01/19 07:58 ABG, PT/INR, D-dimer: ABG POC ABG pH 7.462 (7.35-7.45) H 06/05/19 03:52 ABG pH 7.469 pH Units (7.350-7.450) H 06/23/19 02:00 POC ABG pCO2 39.8 (35-45) 06/05/19 03:52 ABG pCO2 39.4 mm Hg 06/23/19 02:00 POC ABG pO2 86 (80-105) 06/05/19 03:52 ABG pO2 58.7 mm Hg (80.0-90.0) L 06/23/19 02:00 POC ABG HCO3 28.4 (22-26 mml/L) 06/05/19 03:52 POC ABG Total CO2 30 (23-27mmol/L) 06/05/19 03:52 POC ABG O2 Sat 97 06/05/19 03:52 ABG O2 Saturation 94.6 % (95.0-99.0) L 06/23/19 02:00 PT/INR, D-dimer PT 15.4 Sec. (12.2-14.9) H 05/01/19 Unknown INR 1.23 (0.87-1.13) H 05/01/19 Unknown Abnormal lab findings: Abnormal Labs 05/01/19 05/01/19 05/01/19 17:50 19:26 22:36 WBC RBC Hgb Hct MCV MCH MCHC RDW Plt Count Lymph % (Auto) [place] % (Auto) Eos % (Auto) Lymph # [place] # Eos # Seg Neutrophils % Seg Neuts % (Manual) Lymphocytes % (Manual) Monocytes % (Manual) Eosinophils % (Manual) Nucleated RBC % Seg Neutrophils # Seg Neutrophils # Man Lymphocytes # (Manual) Monocytes # (Manual) Eosinophils # (Manual) PT INR APTT Fibrinogen POC ABG pH 7.272 L 7.331 L ABG pH POC ABG pCO2 52.8 H POC ABG pO2 ABG pO2 ABG HCO3 ABG O2 Saturation ABG Base Excess ABG Hemoglobin Oxyhemoglobin Sodium 136 L Potassium 6.5 H* Chloride 97.2 L Carbon Dioxide BUN 60 H Creatinine Glucose 113 H POC Glucose Uric Acid Calcium Phosphorus Magnesium 2.40 H Iron TIBC AST 139 H ALT 154 H Total Creatine Kinase CK-MB (CK-2) Troponin T NT-Pro-B Natriuret Pep Total Protein Albumin 3.8 L Triglycerides HDL Cholesterol Folate Urine WBC (Auto) Urine Creatinine Urine Total Protein Vancomycin Trough 05/01/19 05/01/19 05/01/19 Unknown Unknown Unknown WBC 16.1 H RBC Hgb Hct MCV MCH MCHC RDW 17.2 H Plt Count Lymph % (Auto) [place] % (Auto) 9.6 H Eos % (Auto) Lymph # [place] # 1.5 H Eos # Seg Neutrophils % 73.0 H Seg Neuts % (Manual) Lymphocytes % (Manual) Monocytes % (Manual) Eosinophils % (Manual) Nucleated RBC % Seg Neutrophils # 11.7 H Seg Neutrophils # Man Lymphocytes # (Manual) Monocytes # (Manual) Eosinophils # (Manual) PT 15.4 H INR 1.23 H APTT 22.7 L Fibrinogen POC ABG pH ABG pH POC ABG pCO2 POC ABG pO2 ABG pO2 ABG HCO3 ABG O2 Saturation ABG Base Excess ABG Hemoglobin Oxyhemoglobin Sodium Potassium Chloride Carbon Dioxide BUN Creatinine Glucose POC Glucose Uric Acid Calcium Phosphorus Magnesium Iron TIBC AST ALT Total Creatine Kinase CK-MB (CK-2) Troponin T NT-Pro-B Natriuret Pep 6831 H Total Protein Albumin Triglycerides HDL Cholesterol Folate Urine WBC (Auto) Urine Creatinine Urine Total Protein Vancomycin Trough 12/07/19 12/08/19 12/08/19 Unknown 00:06 00:06 WBC RBC Hgb Hct MCV MCH MCHC RDW Plt Count Lymph % (Auto) [place] % (Auto) Eos % (Auto) Lymph # [place] # Eos # Seg Neutrophils % Seg Neuts % (Manual) Lymphocytes % (Manual) Monocytes % (Manual) Eosinophils % (Manual) Nucleated RBC % Seg Neutrophils # Seg Neutrophils # Man Lymphocytes # (Manual) Monocytes # (Manual) Eosinophils # (Manual) PT INR APTT Fibrinogen POC ABG pH ABG pH POC ABG pCO2 POC ABG pO2 ABG pO2 ABG HCO3 ABG O2 Saturation ABG Base Excess ABG Hemoglobin Oxyhemoglobin Sodium Potassium Chloride Carbon Dioxide BUN Creatinine Glucose POC Glucose Uric Acid Calcium Phosphorus 4.90 H Magnesium Iron TIBC AST ALT Total Creatine Kinase 226 H CK-MB (CK-2) 5.7 H Troponin T 0.044 H NT-Pro-B Natriuret Pep Total Protein Albumin Triglycerides 182 H HDL Cholesterol 18 L Folate Urine WBC (Auto) Urine Creatinine Urine Total Protein Vancomycin Trough 05/02/19 05/02/19 05/02/19 02:08 04:40 04:41 WBC 17.6 H RBC Hgb Hct MCV MCH 27 L MCHC RDW 17.4 H Plt Count Lymph % (Auto) 10.2 L [place] % (Auto) 11.0 H Eos % (Auto) Lymph # [place] # 1.9 H Eos # Seg Neutrophils % 78.0 H Seg Neuts % (Manual) Lymphocytes % (Manual) Monocytes % (Manual) Eosinophils % (Manual) Nucleated RBC % Seg Neutrophils # 13.8 H Seg Neutrophils # Man Lymphocytes # (Manual) Monocytes # (Manual) Eosinophils # (Manual) PT INR APTT Fibrinogen POC ABG pH ABG pH POC ABG pCO2 46.8 H POC ABG pO2 63 L ABG pO2 ABG HCO3 ABG O2 Saturation ABG Base Excess ABG Hemoglobin Oxyhemoglobin Sodium Potassium Chloride 96.3 L Carbon Dioxide BUN 63 H Creatinine 1.7 H Glucose POC Glucose Uric Acid Calcium Phosphorus Magnesium Iron TIBC AST ALT Total Creatine Kinase CK-MB (CK-2) Troponin T NT-Pro-B Natriuret Pep Total Protein Albumin Triglycerides HDL Cholesterol Folate Urine WBC (Auto) Urine Creatinine Urine Total Protein Vancomycin Trough 05/02/19 05/02/19 05/02/19 04:41 04:41 16:05 WBC RBC Hgb Hct MCV MCH MCHC RDW Plt Count Lymph % (Auto) [place] % (Auto) Eos % (Auto) Lymph # [place] # Eos # Seg Neutrophils % Seg Neuts % (Manual) Lymphocytes % (Manual) Monocytes % (Manual) Eosinophils % (Manual) Nucleated RBC % Seg Neutrophils # Seg Neutrophils # Man Lymphocytes # (Manual) Monocytes # (Manual) Eosinophils # (Manual) PT INR APTT Fibrinogen POC ABG pH ABG pH POC ABG pCO2 POC ABG pO2 ABG pO2 66.6 L ABG HCO3 31.9 H ABG O2 Saturation 92.5 L ABG Base Excess 5.8 H ABG Hemoglobin 13.3 L Oxyhemoglobin 90.6 L Sodium Potassium Chloride 97.2 L Carbon Dioxide BUN 61 H Creatinine 1.8 H Glucose POC Glucose Uric Acid Calcium Phosphorus Magnesium Iron TIBC AST ALT Total Creatine Kinase CK-MB (CK-2) 5.2 H Troponin T 0.067 H D NT-Pro-B Natriuret Pep Total Protein Albumin Triglycerides HDL Cholesterol Folate Urine WBC (Auto) Urine Creatinine Urine Total Protein Vancomycin Trough 05/02/19 05/03/19 05/03/19 20:39 04:35 05:05 WBC 11.8 H RBC Hgb Hct MCV MCH 27 L MCHC 31 L RDW 17.2 H Plt Count Lymph % (Auto) [place] % (Auto) Eos % (Auto) Lymph # [place] # Eos # Seg Neutrophils % Seg Neuts % (Manual) Lymphocytes % (Manual) Monocytes % (Manual) Eosinophils % (Manual) Nucleated RBC % Seg Neutrophils # Seg Neutrophils # Man Lymphocytes # (Manual) Monocytes # (Manual) Eosinophils # (Manual) PT INR APTT Fibrinogen POC ABG pH ABG pH POC ABG pCO2 53.6 H 54.0 H POC ABG pO2 55 L 63 L ABG pO2 ABG HCO3 ABG O2 Saturation ABG Base Excess ABG Hemoglobin Oxyhemoglobin Sodium Potassium Chloride Carbon Dioxide BUN Creatinine Glucose POC Glucose Uric Acid Calcium Phosphorus Magnesium Iron TIBC AST ALT Total Creatine Kinase CK-MB (CK-2) Troponin T NT-Pro-B Natriuret Pep Total Protein Albumin Triglycerides HDL Cholesterol Folate Urine WBC (Auto) Urine Creatinine Urine Total Protein Vancomycin Trough 05/03/19 05/03/19 05/03/19 05:05 10:55 16:48 WBC RBC Hgb Hct MCV MCH MCHC RDW Plt Count Lymph % (Auto) [place] % (Auto) Eos % (Auto) Lymph # [place] # Eos # Seg Neutrophils % Seg Neuts % (Manual) Lymphocytes % (Manual) Monocytes % (Manual) Eosinophils % (Manual) Nucleated RBC % Seg Neutrophils # Seg Neutrophils # Man Lymphocytes # (Manual) Monocytes # (Manual) Eosinophils # (Manual) PT INR APTT Fibrinogen POC ABG pH 7.604 H ABG pH POC ABG pCO2 POC ABG pO2 58 L ABG pO2 ABG HCO3 ABG O2 Saturation ABG Base Excess ABG Hemoglobin Oxyhemoglobin Sodium Potassium Chloride Carbon Dioxide BUN 52 H Creatinine 1.9 H Glucose 103 H POC Glucose Uric Acid Calcium Phosphorus Magnesium Iron TIBC AST ALT Total Creatine Kinase CK-MB (CK-2) Troponin T NT-Pro-B Natriuret Pep Total Protein Albumin Triglycerides HDL Cholesterol Folate Urine WBC (Auto) 33.0 H Urine Creatinine Urine Total Protein Vancomycin Trough 05/04/19 05/04/19 05/04/19 04:49 06:50 06:50 WBC 16.0 H RBC Hgb Hct MCV MCH 27 L MCHC 31 L RDW 17.8 H Plt Count Lymph % (Auto) [place] % (Auto) Eos % (Auto) Lymph # [place] # Eos # Seg Neutrophils % Seg Neuts % (Manual) Lymphocytes % (Manual) Monocytes % (Manual) Eosinophils % (Manual) Nucleated RBC % Seg Neutrophils # Seg Neutrophils # Man Lymphocytes # (Manual) Monocytes # (Manual) Eosinophils # (Manual) PT INR APTT Fibrinogen POC ABG pH 7.273 L ABG pH POC ABG pCO2 POC ABG pO2 ABG pO2 ABG HCO3 ABG O2 Saturation ABG Base Excess ABG Hemoglobin Oxyhemoglobin Sodium 148 H Potassium 5.5 H Chloride Carbon Dioxide BUN 53 H Creatinine 3.3 H D Glucose 106 H POC Glucose Uric Acid Calcium 8.3 L Phosphorus Magnesium Iron TIBC AST ALT Total Creatine Kinase CK-MB (CK-2) Troponin T NT-Pro-B Natriuret Pep Total Protein Albumin Triglycerides HDL Cholesterol Folate Urine WBC (Auto) Urine Creatinine Urine Total Protein Vancomycin Trough 05/05/19 05/05/19 05/05/19 00:05 04:30 05:00 WBC RBC Hgb Hct MCV MCH MCHC RDW Plt Count Lymph % (Auto) [place] % (Auto) Eos % (Auto) Lymph # [place] # Eos # Seg Neutrophils % Seg Neuts % (Manual) Lymphocytes % (Manual) Monocytes % (Manual) Eosinophils % (Manual) Nucleated RBC % Seg Neutrophils # Seg Neutrophils # Man Lymphocytes # (Manual) Monocytes # (Manual) Eosinophils # (Manual) PT INR APTT Fibrinogen POC ABG pH 7.225 L ABG pH POC ABG pCO2 > 70 H POC ABG pO2 ABG pO2 ABG HCO3 ABG O2 Saturation ABG Base Excess ABG Hemoglobin Oxyhemoglobin Sodium 151 H Potassium 5.1 H Chloride Carbon Dioxide BUN 64 H Creatinine 3.5 H Glucose 117 H POC Glucose 141 H Uric Acid Calcium 7.5 L Phosphorus Magnesium Iron TIBC AST 93 H ALT 65 H Total Creatine Kinase CK-MB (CK-2) Troponin T NT-Pro-B Natriuret Pep Total Protein Albumin 2.9 L Triglycerides HDL Cholesterol Folate Urine WBC (Auto) Urine Creatinine Urine Total Protein Vancomycin Trough 05/05/19 05/05/19 05/05/19 05:00 12:02 17:46 WBC 12.0 H RBC Hgb 11.3 L Hct MCV MCH 27 L MCHC 30 L RDW 18.4 H Plt Count Lymph % (Auto) 7.9 L [place] % (Auto) 10.2 H Eos % (Auto) Lymph # 1.0 L [place] # 1.2 H Eos # Seg Neutrophils % 80.8 H Seg Neuts % (Manual) Lymphocytes % (Manual) Monocytes % (Manual) Eosinophils % (Manual) Nucleated RBC % Seg Neutrophils # 9.7 H Seg Neutrophils # Man Lymphocytes # (Manual) Monocytes # (Manual) Eosinophils # (Manual) PT INR APTT Fibrinogen POC ABG pH ABG pH POC ABG pCO2 POC ABG pO2 ABG pO2 ABG HCO3 ABG O2 Saturation ABG Base Excess ABG Hemoglobin Oxyhemoglobin Sodium Potassium Chloride Carbon Dioxide BUN Creatinine Glucose POC Glucose 125 H 112 H Uric Acid Calcium Phosphorus Magnesium Iron TIBC AST ALT Total Creatine Kinase CK-MB (CK-2) Troponin T NT-Pro-B Natriuret Pep Total Protein Albumin Triglycerides HDL Cholesterol Folate Urine WBC (Auto) Urine Creatinine Urine Total Protein Vancomycin Trough 05/05/19 05/06/19 05/06/19 23:42 03:58 04:45 WBC 11.4 H RBC Hgb 10.7 L Hct 34.2 L MCV MCH 27 L MCHC 31 L RDW 16.9 H Plt Count Lymph % (Auto) [place] % (Auto) Eos % (Auto) Lymph # [place] # Eos # Seg Neutrophils % Seg Neuts % (Manual) Lymphocytes % (Manual) Monocytes % (Manual) Eosinophils % (Manual) Nucleated RBC % Seg Neutrophils # Seg Neutrophils # Man Lymphocytes # (Manual) Monocytes # (Manual) Eosinophils # (Manual) PT INR APTT Fibrinogen POC ABG pH ABG pH POC ABG pCO2 62.4 H POC ABG pO2 111 H ABG pO2 ABG HCO3 ABG O2 Saturation ABG Base Excess ABG Hemoglobin Oxyhemoglobin Sodium Potassium Chloride Carbon Dioxide BUN Creatinine Glucose POC Glucose 128 H Uric Acid Calcium Phosphorus Magnesium Iron TIBC AST ALT Total Creatine Kinase CK-MB (CK-2) Troponin T NT-Pro-B Natriuret Pep Total Protein Albumin Triglycerides HDL Cholesterol Folate Urine WBC (Auto) Urine Creatinine Urine Total Protein Vancomycin Trough 05/06/19 05/06/19 05/06/19 04:45 05:33 12:30 WBC RBC Hgb Hct MCV MCH MCHC RDW Plt Count Lymph % (Auto) [place] % (Auto) Eos % (Auto) Lymph # [place] # Eos # Seg Neutrophils % Seg Neuts % (Manual) Lymphocytes % (Manual) Monocytes % (Manual) Eosinophils % (Manual) Nucleated RBC % Seg Neutrophils # Seg Neutrophils # Man Lymphocytes # (Manual) Monocytes # (Manual) Eosinophils # (Manual) PT INR APTT Fibrinogen POC ABG pH ABG pH POC ABG pCO2 POC ABG pO2 ABG pO2 ABG HCO3 ABG O2 Saturation ABG Base Excess ABG Hemoglobin Oxyhemoglobin Sodium 149 H Potassium Chloride Carbon Dioxide 31 H BUN 67 H Creatinine 3.2 H Glucose 125 H POC Glucose 117 H 116 H Uric Acid Calcium 7.5 L Phosphorus Magnesium Iron TIBC AST ALT Total Creatine Kinase CK-MB (CK-2) Troponin T NT-Pro-B Natriuret Pep Total Protein Albumin Triglycerides HDL Cholesterol Folate Urine WBC (Auto) Urine Creatinine Urine Total Protein Vancomycin Trough 05/06/19 05/06/19 05/07/19 18:34 23:16 05:22 WBC RBC Hgb Hct MCV MCH MCHC RDW Plt Count Lymph % (Auto) [place] % (Auto) Eos % (Auto) Lymph # [place] # Eos # Seg Neutrophils % Seg Neuts % (Manual) Lymphocytes % (Manual) Monocytes % (Manual) Eosinophils % (Manual) Nucleated RBC % Seg Neutrophils # Seg Neutrophils # Man Lymphocytes # (Manual) Monocytes # (Manual) Eosinophils # (Manual) PT INR APTT Fibrinogen POC ABG pH ABG pH POC ABG pCO2 POC ABG pO2 ABG pO2 ABG HCO3 ABG O2 Saturation ABG Base Excess ABG Hemoglobin Oxyhemoglobin Sodium Potassium Chloride Carbon Dioxide BUN Creatinine Glucose POC Glucose 128 H 143 H 166 H Uric Acid Calcium Phosphorus Magnesium Iron TIBC AST ALT Total Creatine Kinase CK-MB (CK-2) Troponin T NT-Pro-B Natriuret Pep Total Protein Albumin Triglycerides HDL Cholesterol Folate Urine WBC (Auto) Urine Creatinine Urine Total Protein Vancomycin Trough 05/07/19 05/07/19 05/07/19 06:33 07:03 09:35 WBC RBC Hgb Hct MCV MCH MCHC RDW Plt Count Lymph % (Auto) [place] % (Auto) Eos % (Auto) Lymph # [place] # Eos # Seg Neutrophils % Seg Neuts % (Manual) Lymphocytes % (Manual) Monocytes % (Manual) Eosinophils % (Manual) Nucleated RBC % Seg Neutrophils # Seg Neutrophils # Man Lymphocytes # (Manual) Monocytes # (Manual) Eosinophils # (Manual) PT INR APTT Fibrinogen POC ABG pH 7.263 L 7.288 L ABG pH POC ABG pCO2 POC ABG pO2 51 L 56 L ABG pO2 ABG HCO3 ABG O2 Saturation ABG Base Excess ABG Hemoglobin Oxyhemoglobin Sodium Potassium Chloride Carbon Dioxide BUN 76 H Creatinine 3.2 H Glucose 147 H POC Glucose Uric Acid Calcium 7.9 L Phosphorus Magnesium Iron TIBC AST ALT Total Creatine Kinase CK-MB (CK-2) Troponin T NT-Pro-B Natriuret Pep Total Protein Albumin Triglycerides HDL Cholesterol Folate Urine WBC (Auto) Urine Creatinine Urine Total Protein Vancomycin Trough 05/07/19 05/07/19 05/07/19 09:35 12:17 13:45 WBC 13.4 H RBC Hgb 11.6 L Hct MCV MCH 27 L MCHC 31 L RDW 17.5 H Plt Count Lymph % (Auto) [place] % (Auto) Eos % (Auto) Lymph # [place] # Eos # Seg Neutrophils % Seg Neuts % (Manual) Lymphocytes % (Manual) Monocytes % (Manual) Eosinophils % (Manual) Nucleated RBC % Seg Neutrophils # Seg Neutrophils # Man Lymphocytes # (Manual) Monocytes # (Manual) Eosinophils # (Manual) PT INR APTT Fibrinogen POC ABG pH ABG pH POC ABG pCO2 POC ABG pO2 ABG pO2 ABG HCO3 ABG O2 Saturation ABG Base Excess ABG Hemoglobin Oxyhemoglobin Sodium Potassium Chloride Carbon Dioxide BUN Creatinine Glucose POC Glucose 130 H Uric Acid 18.0 H Calcium Phosphorus Magnesium Iron TIBC AST ALT Total Creatine Kinase CK-MB (CK-2) Troponin T NT-Pro-B Natriuret Pep Total Protein Albumin Triglycerides HDL Cholesterol Folate Urine WBC (Auto) Urine Creatinine Urine Total Protein Vancomycin Trough 05/07/19 05/07/19 05/08/19 17:39 22:40 05:06 WBC RBC Hgb Hct MCV MCH MCHC RDW Plt Count Lymph % (Auto) [place] % (Auto) Eos % (Auto) Lymph # [place] # Eos # Seg Neutrophils % Seg Neuts % (Manual) Lymphocytes % (Manual) Monocytes % (Manual) Eosinophils % (Manual) Nucleated RBC % Seg Neutrophils # Seg Neutrophils # Man Lymphocytes # (Manual) Monocytes # (Manual) Eosinophils # (Manual) PT INR APTT Fibrinogen POC ABG pH ABG pH POC ABG pCO2 POC ABG pO2 ABG pO2 ABG HCO3 ABG O2 Saturation ABG Base Excess ABG Hemoglobin Oxyhemoglobin Sodium Potassium Chloride Carbon Dioxide BUN Creatinine Glucose POC Glucose 116 H 148 H Uric Acid Calcium Phosphorus Magnesium Iron TIBC AST ALT Total Creatine Kinase CK-MB (CK-2) Troponin T NT-Pro-B Natriuret Pep Total Protein Albumin Triglycerides HDL Cholesterol Folate Urine WBC (Auto) Urine Creatinine 292.8 H Urine Total Protein 269 H Vancomycin Trough 05/08/19 05/08/19 05/08/19 05:32 11:28 13:48 WBC RBC Hgb Hct MCV MCH MCHC RDW Plt Count Lymph % (Auto) [place] % (Auto) Eos % (Auto) Lymph # [place] # Eos # Seg Neutrophils % Seg Neuts % (Manual) Lymphocytes % (Manual) Monocytes % (Manual) Eosinophils % (Manual) Nucleated RBC % Seg Neutrophils # Seg Neutrophils # Man Lymphocytes # (Manual) Monocytes # (Manual) Eosinophils # (Manual) PT INR APTT Fibrinogen POC ABG pH ABG pH POC ABG pCO2 45.4 H POC ABG pO2 64 L ABG pO2 ABG HCO3 ABG O2 Saturation ABG Base Excess ABG Hemoglobin Oxyhemoglobin Sodium Potassium Chloride Carbon Dioxide BUN 73 H Creatinine 2.7 H Glucose 127 H POC Glucose 107 H Uric Acid Calcium 7.6 L Phosphorus Magnesium Iron TIBC AST ALT Total Creatine Kinase CK-MB (CK-2) Troponin T NT-Pro-B Natriuret Pep Total Protein Albumin Triglycerides HDL Cholesterol Folate Urine WBC (Auto) Urine Creatinine Urine Total Protein Vancomycin Trough 05/08/19 05/09/19 05/09/19 17:48 04:50 04:53 WBC RBC 3.07 L Hgb 8.5 L D Hct 29.3 L D MCV 96 H MCH MCHC 29 L RDW 18.1 H Plt Count Lymph % (Auto) [place] % (Auto) Eos % (Auto) Lymph # [place] # Eos # Seg Neutrophils % Seg Neuts % (Manual) Lymphocytes % (Manual) Monocytes % (Manual) Eosinophils % (Manual) Nucleated RBC % Seg Neutrophils # Seg Neutrophils # Man Lymphocytes # (Manual) Monocytes # (Manual) Eosinophils # (Manual) PT INR APTT Fibrinogen POC ABG pH 7.316 L ABG pH POC ABG pCO2 66.0 H POC ABG pO2 69 L ABG pO2 ABG HCO3 ABG O2 Saturation ABG Base Excess ABG Hemoglobin Oxyhemoglobin Sodium Potassium Chloride Carbon Dioxide BUN Creatinine Glucose POC Glucose 155 H Uric Acid Calcium Phosphorus Magnesium Iron TIBC AST ALT Total Creatine Kinase CK-MB (CK-2) Troponin T NT-Pro-B Natriuret Pep Total Protein Albumin Triglycerides HDL Cholesterol Folate Urine WBC (Auto) Urine Creatinine Urine Total Protein Vancomycin Trough 05/09/19 05/09/19 05/09/19 05:46 07:24 12:10 WBC RBC Hgb Hct MCV MCH MCHC RDW Plt Count Lymph % (Auto) [place] % (Auto) Eos % (Auto) Lymph # [place] # Eos # Seg Neutrophils % Seg Neuts % (Manual) Lymphocytes % (Manual) Monocytes % (Manual) Eosinophils % (Manual) Nucleated RBC % Seg Neutrophils # Seg Neutrophils # Man Lymphocytes # (Manual) Monocytes # (Manual) Eosinophils # (Manual) PT INR APTT Fibrinogen POC ABG pH ABG pH POC ABG pCO2 POC ABG pO2 ABG pO2 ABG HCO3 ABG O2 Saturation ABG Base Excess ABG Hemoglobin Oxyhemoglobin Sodium Potassium Chloride Carbon Dioxide BUN 73 H Creatinine 2.4 H Glucose 153 H POC Glucose 123 H 148 H Uric Acid Calcium 8.2 L Phosphorus Magnesium Iron TIBC AST 45 H ALT Total Creatine Kinase CK-MB (CK-2) Troponin T NT-Pro-B Natriuret Pep Total Protein 6.0 L Albumin 1.9 L Triglycerides HDL Cholesterol Folate Urine WBC (Auto) Urine Creatinine Urine Total Protein Vancomycin Trough 05/09/19 05/09/19 05/10/19 18:23 23:26 04:52 WBC RBC Hgb Hct MCV MCH MCHC RDW Plt Count Lymph % (Auto) [place] % (Auto) Eos % (Auto) Lymph # [place] # Eos # Seg Neutrophils % Seg Neuts % (Manual) Lymphocytes % (Manual) Monocytes % (Manual) Eosinophils % (Manual) Nucleated RBC % Seg Neutrophils # Seg Neutrophils # Man Lymphocytes # (Manual) Monocytes # (Manual) Eosinophils # (Manual) PT INR APTT Fibrinogen POC ABG pH 7.305 L ABG pH POC ABG pCO2 62.6 H POC ABG pO2 ABG pO2 ABG HCO3 ABG O2 Saturation ABG Base Excess ABG Hemoglobin Oxyhemoglobin Sodium Potassium Chloride Carbon Dioxide BUN Creatinine Glucose POC Glucose 147 H 121 H Uric Acid Calcium Phosphorus Magnesium Iron TIBC AST ALT Total Creatine Kinase CK-MB (CK-2) Troponin T NT-Pro-B Natriuret Pep Total Protein Albumin Triglycerides HDL Cholesterol Folate Urine WBC (Auto) Urine Creatinine Urine Total Protein Vancomycin Trough 05/10/19 05/10/19 05/10/19 05:00 05:00 05:50 WBC RBC Hgb 10.3 L Hct 33.7 L MCV MCH 27 L MCHC 31 L RDW 17.0 H Plt Count Lymph % (Auto) [place] % (Auto) Eos % (Auto) Lymph # [place] # Eos # Seg Neutrophils % Seg Neuts % (Manual) Lymphocytes % (Manual) Monocytes % (Manual) Eosinophils % (Manual) Nucleated RBC % Seg Neutrophils # Seg Neutrophils # Man Lymphocytes # (Manual) Monocytes # (Manual) Eosinophils # (Manual) PT INR APTT Fibrinogen POC ABG pH ABG pH POC ABG pCO2 POC ABG pO2 ABG pO2 ABG HCO3 ABG O2 Saturation ABG Base Excess ABG Hemoglobin Oxyhemoglobin Sodium 147 H Potassium Chloride Carbon Dioxide BUN 70 H Creatinine 2.6 H Glucose 155 H POC Glucose 158 H Uric Acid Calcium 8.2 L Phosphorus Magnesium Iron TIBC AST ALT Total Creatine Kinase CK-MB (CK-2) Troponin T NT-Pro-B Natriuret Pep Total Protein 6.1 L Albumin 2.5 L Triglycerides HDL Cholesterol Folate Urine WBC (Auto) Urine Creatinine Urine Total Protein Vancomycin Trough 05/10/19 05/11/19 05/11/19 13:14 07:26 11:40 WBC RBC Hgb Hct MCV MCH MCHC RDW Plt Count Lymph % (Auto) [place] % (Auto) Eos % (Auto) Lymph # [place] # Eos # Seg Neutrophils % Seg Neuts % (Manual) Lymphocytes % (Manual) Monocytes % (Manual) Eosinophils % (Manual) Nucleated RBC % Seg Neutrophils # Seg Neutrophils # Man Lymphocytes # (Manual) Monocytes # (Manual) Eosinophils # (Manual) PT INR APTT Fibrinogen POC ABG pH ABG pH POC ABG pCO2 48.0 H POC ABG pO2 58 L ABG pO2 ABG HCO3 ABG O2 Saturation ABG Base Excess ABG Hemoglobin Oxyhemoglobin Sodium 147 H Potassium Chloride 107.2 H Carbon Dioxide BUN 67 H Creatinine 2.6 H Glucose 121 H POC Glucose 159 H Uric Acid Calcium Phosphorus Magnesium Iron TIBC AST ALT Total Creatine Kinase CK-MB (CK-2) Troponin T NT-Pro-B Natriuret Pep Total Protein Albumin Triglycerides HDL Cholesterol Folate Urine WBC (Auto) Urine Creatinine Urine Total Protein Vancomycin Trough 05/11/19 05/11/19 05/12/19 18:13 23:46 04:40 WBC RBC Hgb Hct MCV MCH MCHC RDW Plt Count Lymph % (Auto) [place] % (Auto) Eos % (Auto) Lymph # [place] # Eos # Seg Neutrophils % Seg Neuts % (Manual) Lymphocytes % (Manual) Monocytes % (Manual) Eosinophils % (Manual) Nucleated RBC % Seg Neutrophils # Seg Neutrophils # Man Lymphocytes # (Manual) Monocytes # (Manual) Eosinophils # (Manual) PT INR APTT Fibrinogen POC ABG pH ABG pH 7.264 L POC ABG pCO2 POC ABG pO2 ABG pO2 66.8 L ABG HCO3 31.0 H ABG O2 Saturation 92.0 L ABG Base Excess ABG Hemoglobin 10.3 L Oxyhemoglobin 90.1 L Sodium Potassium Chloride Carbon Dioxide BUN Creatinine Glucose POC Glucose 120 H 121 H Uric Acid Calcium Phosphorus Magnesium Iron TIBC AST ALT Total Creatine Kinase CK-MB (CK-2) Troponin T NT-Pro-B Natriuret Pep Total Protein Albumin Triglycerides HDL Cholesterol Folate Urine WBC (Auto) Urine Creatinine Urine Total Protein Vancomycin Trough 05/12/19 05/12/19 05/12/19 04:45 04:45 11:14 WBC RBC Hgb 10.2 L Hct 32.4 L MCV MCH MCHC 31 L RDW 17.2 H Plt Count Lymph % (Auto) [place] % (Auto) Eos % (Auto) Lymph # [place] # Eos # Seg Neutrophils % Seg Neuts % (Manual) Lymphocytes % (Manual) Monocytes % (Manual) Eosinophils % (Manual) Nucleated RBC % Seg Neutrophils # Seg Neutrophils # Man Lymphocytes # (Manual) Monocytes # (Manual) Eosinophils # (Manual) PT INR APTT Fibrinogen POC ABG pH 7.284 L ABG pH POC ABG pCO2 67.8 H POC ABG pO2 ABG pO2 ABG HCO3 ABG O2 Saturation ABG Base Excess ABG Hemoglobin Oxyhemoglobin Sodium Potassium Chloride Carbon Dioxide BUN 63 H Creatinine 2.4 H Glucose 110 H POC Glucose Uric Acid Calcium Phosphorus Magnesium Iron TIBC AST ALT Total Creatine Kinase CK-MB (CK-2) Troponin T NT-Pro-B Natriuret Pep Total Protein Albumin Triglycerides HDL Cholesterol Folate Urine WBC (Auto) Urine Creatinine Urine Total Protein Vancomycin Trough 05/12/19 05/12/19 05/13/19 11:44 23:11 04:30 WBC RBC Hgb Hct MCV MCH MCHC RDW Plt Count Lymph % (Auto) [place] % (Auto) Eos % (Auto) Lymph # [place] # Eos # Seg Neutrophils % Seg Neuts % (Manual) Lymphocytes % (Manual) Monocytes % (Manual) Eosinophils % (Manual) Nucleated RBC % Seg Neutrophils # Seg Neutrophils # Man Lymphocytes # (Manual) Monocytes # (Manual) Eosinophils # (Manual) PT INR APTT Fibrinogen POC ABG pH ABG pH 7.288 L POC ABG pCO2 POC ABG pO2 ABG pO2 109.7 H ABG HCO3 30.9 H ABG O2 Saturation ABG Base Excess 3.2 H ABG Hemoglobin 9.6 L Oxyhemoglobin Sodium Potassium Chloride Carbon Dioxide BUN Creatinine Glucose POC Glucose 126 H 147 H Uric Acid Calcium Phosphorus Magnesium Iron TIBC AST ALT Total Creatine Kinase CK-MB (CK-2) Troponin T NT-Pro-B Natriuret Pep Total Protein Albumin Triglycerides HDL Cholesterol Folate Urine WBC (Auto) Urine Creatinine Urine Total Protein Vancomycin Trough 05/13/19 05/13/19 05/14/19 06:27 11:58 04:00 WBC RBC 3.16 L Hgb 9.3 L Hct 27.9 L MCV MCH MCHC RDW 17.1 H Plt Count Lymph % (Auto) [place] % (Auto) Eos % (Auto) Lymph # [place] # Eos # Seg Neutrophils % Seg Neuts % (Manual) Lymphocytes % (Manual) Monocytes % (Manual) Eosinophils % (Manual) Nucleated RBC % Seg Neutrophils # Seg Neutrophils # Man Lymphocytes # (Manual) Monocytes # (Manual) Eosinophils # (Manual) PT INR APTT Fibrinogen POC ABG pH ABG pH POC ABG pCO2 POC ABG pO2 ABG pO2 ABG HCO3 ABG O2 Saturation ABG Base Excess ABG Hemoglobin Oxyhemoglobin Sodium Potassium Chloride Carbon Dioxide BUN Creatinine Glucose POC Glucose 113 H 130 H Uric Acid Calcium Phosphorus Magnesium Iron TIBC AST ALT Total Creatine Kinase CK-MB (CK-2) Troponin T NT-Pro-B Natriuret Pep Total Protein Albumin Triglycerides HDL Cholesterol Folate Urine WBC (Auto) Urine Creatinine Urine Total Protein Vancomycin Trough 05/14/19 05/14/19 05/14/19 04:00 04:34 05:32 WBC RBC Hgb Hct MCV MCH MCHC RDW Plt Count Lymph % (Auto) [place] % (Auto) Eos % (Auto) Lymph # [place] # Eos # Seg Neutrophils % Seg Neuts % (Manual) Lymphocytes % (Manual) Monocytes % (Manual) Eosinophils % (Manual) Nucleated RBC % Seg Neutrophils # Seg Neutrophils # Man Lymphocytes # (Manual) Monocytes # (Manual) Eosinophils # (Manual) PT INR APTT Fibrinogen POC ABG pH 7.328 L ABG pH POC ABG pCO2 61.7 H POC ABG pO2 ABG pO2 ABG HCO3 ABG O2 Saturation ABG Base Excess ABG Hemoglobin Oxyhemoglobin Sodium 135 L D Potassium Chloride Carbon Dioxide BUN 57 H Creatinine 2.2 H Glucose 115 H POC Glucose 115 H Uric Acid Calcium 8.1 L Phosphorus Magnesium Iron TIBC AST ALT Total Creatine Kinase CK-MB (CK-2) Troponin T NT-Pro-B Natriuret Pep Total Protein Albumin Triglycerides HDL Cholesterol Folate Urine WBC (Auto) Urine Creatinine Urine Total Protein Vancomycin Trough 05/14/19 05/15/19 05/15/19 12:11 05:10 05:24 WBC RBC Hgb Hct MCV MCH MCHC RDW Plt Count Lymph % (Auto) [place] % (Auto) Eos % (Auto) Lymph # [place] # Eos # Seg Neutrophils % Seg Neuts % (Manual) Lymphocytes % (Manual) Monocytes % (Manual) Eosinophils % (Manual) Nucleated RBC % Seg Neutrophils # Seg Neutrophils # Man Lymphocytes # (Manual) Monocytes # (Manual) Eosinophils # (Manual) PT INR APTT Fibrinogen POC ABG pH ABG pH 7.342 L POC ABG pCO2 POC ABG pO2 ABG pO2 79.1 L ABG HCO3 28.2 H ABG O2 Saturation ABG Base Excess ABG Hemoglobin 7.0 L Oxyhemoglobin 94.4 L Sodium Potassium Chloride Carbon Dioxide BUN Creatinine Glucose POC Glucose 110 H 116 H Uric Acid Calcium Phosphorus Magnesium Iron TIBC AST ALT Total Creatine Kinase CK-MB (CK-2) Troponin T NT-Pro-B Natriuret Pep Total Protein Albumin Triglycerides HDL Cholesterol Folate Urine WBC (Auto) Urine Creatinine Urine Total Protein Vancomycin Trough 05/15/19 05/15/19 05/16/19 09:00 18:12 04:50 WBC RBC Hgb Hct MCV MCH MCHC RDW Plt Count Lymph % (Auto) [place] % (Auto) Eos % (Auto) Lymph # [place] # Eos # Seg Neutrophils % Seg Neuts % (Manual) Lymphocytes % (Manual) Monocytes % (Manual) Eosinophils % (Manual) Nucleated RBC % Seg Neutrophils # Seg Neutrophils # Man Lymphocytes # (Manual) Monocytes # (Manual) Eosinophils # (Manual) PT INR APTT Fibrinogen POC ABG pH ABG pH 7.250 L POC ABG pCO2 POC ABG pO2 ABG pO2 76.4 L ABG HCO3 ABG O2 Saturation 94.6 L ABG Base Excess -3.1 L ABG Hemoglobin 9.7 L Oxyhemoglobin 92.4 L Sodium Potassium Chloride Carbon Dioxide BUN Creatinine Glucose POC Glucose 110 H Uric Acid Calcium Phosphorus Magnesium Iron TIBC AST ALT Total Creatine Kinase CK-MB (CK-2) Troponin T NT-Pro-B Natriuret Pep Total Protein Albumin Triglycerides HDL Cholesterol Folate Urine WBC (Auto) Urine Creatinine Urine Total Protein Vancomycin Trough 20.5 H 05/16/19 05/16/19 05/17/19 05:50 05:50 04:20 WBC RBC 3.36 L 3.44 L Hgb 9.4 L 9.3 L Hct 29.1 L 29.7 L MCV MCH 27 L MCHC 31 L RDW 17.6 H 17.6 H Plt Count Lymph % (Auto) [place] % (Auto) Eos % (Auto) Lymph # [place] # Eos # Seg Neutrophils % Seg Neuts % (Manual) 77.0 H Lymphocytes % (Manual) 5.0 L Monocytes % (Manual) Eosinophils % (Manual) 10.0 H Nucleated RBC % Seg Neutrophils # Seg Neutrophils # Man Lymphocytes # (Manual) 0.5 L Monocytes # (Manual) Eosinophils # (Manual) 0.9 H PT INR APTT Fibrinogen POC ABG pH ABG pH POC ABG pCO2 POC ABG pO2 ABG pO2 ABG HCO3 ABG O2 Saturation ABG Base Excess ABG Hemoglobin Oxyhemoglobin Sodium Potassium Chloride Carbon Dioxide BUN 83 H Creatinine 4.4 H D Glucose 118 H POC Glucose Uric Acid Calcium Phosphorus Magnesium Iron TIBC AST ALT Total Creatine Kinase CK-MB (CK-2) Troponin T NT-Pro-B Natriuret Pep Total Protein Albumin Triglycerides HDL Cholesterol Folate Urine WBC (Auto) Urine Creatinine Urine Total Protein Vancomycin Trough 05/17/19 05/17/19 05/18/19 04:30 Unknown 01:50 WBC RBC 3.49 L Hgb 9.4 L Hct 30.0 L MCV MCH 27 L MCHC 31 L RDW 17.8 H Plt Count Lymph % (Auto) 7.9 L [place] % (Auto) 15.4 H Eos % (Auto) 6.3 H Lymph # 0.7 L [place] # 1.4 H Eos # 0.6 H Seg Neutrophils % 70.2 H Seg Neuts % (Manual) Lymphocytes % (Manual) Monocytes % (Manual) Eosinophils % (Manual) Nucleated RBC % Seg Neutrophils # Seg Neutrophils # Man Lymphocytes # (Manual) Monocytes # (Manual) Eosinophils # (Manual) PT INR APTT Fibrinogen POC ABG pH ABG pH 7.272 L POC ABG pCO2 POC ABG pO2 ABG pO2 75.7 L ABG HCO3 ABG O2 Saturation 93.8 L ABG Base Excess -3.0 L ABG Hemoglobin 7.8 L Oxyhemoglobin 91.6 L Sodium Potassium 5.2 H Chloride Carbon Dioxide BUN 96 H Creatinine 5.7 H Glucose 112 H POC Glucose Uric Acid Calcium Phosphorus Magnesium Iron TIBC AST ALT Total Creatine Kinase CK-MB (CK-2) Troponin T NT-Pro-B Natriuret Pep Total Protein Albumin Triglycerides 173 H HDL Cholesterol Folate Urine WBC (Auto) Urine Creatinine Urine Total Protein Vancomycin Trough 05/18/19 05/18/19 05/18/19 01:50 04:41 05:24 WBC RBC Hgb Hct MCV MCH MCHC RDW Plt Count Lymph % (Auto) [place] % (Auto) Eos % (Auto) Lymph # [place] # Eos # Seg Neutrophils % Seg Neuts % (Manual) Lymphocytes % (Manual) Monocytes % (Manual) Eosinophils % (Manual) Nucleated RBC % Seg Neutrophils # Seg Neutrophils # Man Lymphocytes # (Manual) Monocytes # (Manual) Eosinophils # (Manual) PT INR APTT Fibrinogen POC ABG pH 7.260 L ABG pH POC ABG pCO2 54.9 H POC ABG pO2 ABG pO2 ABG HCO3 ABG O2 Saturation ABG Base Excess ABG Hemoglobin Oxyhemoglobin Sodium Potassium 5.6 H Chloride Carbon Dioxide BUN 104 H Creatinine 6.6 H Glucose 107 H POC Glucose 106 H Uric Acid Calcium Phosphorus Magnesium Iron TIBC AST ALT Total Creatine Kinase CK-MB (CK-2) Troponin T NT-Pro-B Natriuret Pep Total Protein Albumin Triglycerides HDL Cholesterol Folate Urine WBC (Auto) Urine Creatinine Urine Total Protein Vancomycin Trough 05/18/19 05/18/19 05/19/19 11:34 23:26 04:06 WBC RBC 3.22 L Hgb 8.8 L Hct 27.3 L MCV MCH 27 L MCHC RDW 17.5 H Plt Count Lymph % (Auto) [place] % (Auto) Eos % (Auto) Lymph # [place] # Eos # Seg Neutrophils % Seg Neuts % (Manual) 74.0 H Lymphocytes % (Manual) 4.0 L Monocytes % (Manual) 11.0 H Eosinophils % (Manual) 7.0 H Nucleated RBC % 1.0 H Seg Neutrophils # Seg Neutrophils # Man Lymphocytes # (Manual) 0.3 L Monocytes # (Manual) 0.9 H Eosinophils # (Manual) 0.6 H PT INR APTT Fibrinogen POC ABG pH ABG pH POC ABG pCO2 POC ABG pO2 ABG pO2 ABG HCO3 ABG O2 Saturation ABG Base Excess ABG Hemoglobin Oxyhemoglobin Sodium Potassium Chloride Carbon Dioxide BUN Creatinine Glucose POC Glucose 152 H 112 H Uric Acid Calcium Phosphorus Magnesium Iron TIBC AST ALT Total Creatine Kinase CK-MB (CK-2) Troponin T NT-Pro-B Natriuret Pep Total Protein Albumin Triglycerides HDL Cholesterol Folate Urine WBC (Auto) Urine Creatinine Urine Total Protein Vancomycin Trough 05/19/19 05/19/19 05/20/19 04:06 06:00 04:00 WBC RBC 3.40 L Hgb 9.2 L Hct 28.6 L MCV MCH 27 L MCHC RDW 17.6 H Plt Count Lymph % (Auto) [place] % (Auto) Eos % (Auto) Lymph # [place] # Eos # Seg Neutrophils % Seg Neuts % (Manual) Lymphocytes % (Manual) 11.0 L Monocytes % (Manual) Eosinophils % (Manual) 14.0 H Nucleated RBC % Seg Neutrophils # Seg Neutrophils # Man Lymphocytes # (Manual) 1.1 L Monocytes # (Manual) Eosinophils # (Manual) 1.4 H PT INR APTT Fibrinogen POC ABG pH ABG pH 7.315 L POC ABG pCO2 POC ABG pO2 ABG pO2 ABG HCO3 ABG O2 Saturation ABG Base Excess ABG Hemoglobin 6.7 L Oxyhemoglobin 94.1 L Sodium Potassium 5.2 H Chloride Carbon Dioxide 21 L BUN 110 H Creatinine 7.2 H Glucose POC Glucose Uric Acid Calcium 8.3 L Phosphorus Magnesium Iron TIBC AST ALT Total Creatine Kinase CK-MB (CK-2) Troponin T NT-Pro-B Natriuret Pep Total Protein Albumin Triglycerides HDL Cholesterol Folate Urine WBC (Auto) Urine Creatinine Urine Total Protein Vancomycin Trough 05/20/19 05/20/19 05/20/19 04:00 05:48 12:00 WBC RBC Hgb Hct MCV MCH MCHC RDW Plt Count Lymph % (Auto) [place] % (Auto) Eos % (Auto) Lymph # [place] # Eos # Seg Neutrophils % Seg Neuts % (Manual) Lymphocytes % (Manual) Monocytes % (Manual) Eosinophils % (Manual) Nucleated RBC % Seg Neutrophils # Seg Neutrophils # Man Lymphocytes # (Manual) Monocytes # (Manual) Eosinophils # (Manual) PT INR APTT Fibrinogen POC ABG pH ABG pH 7.281 L POC ABG pCO2 POC ABG pO2 ABG pO2 78.7 L ABG HCO3 ABG O2 Saturation 94.5 L ABG Base Excess -3.0 L ABG Hemoglobin 9.9 L Oxyhemoglobin 92.5 L Sodium 136 L Potassium 5.7 H Chloride 96.3 L Carbon Dioxide BUN 125 H Creatinine 8.3 H Glucose 106 H POC Glucose Uric Acid Calcium Phosphorus Magnesium Iron TIBC AST ALT Total Creatine Kinase CK-MB (CK-2) Troponin T NT-Pro-B Natriuret Pep Total Protein Albumin Triglycerides HDL Cholesterol Folate Urine WBC (Auto) 26.0 H Urine Creatinine Urine Total Protein Vancomycin Trough 05/21/19 05/21/19 05/21/19 04:33 05:20 Unknown WBC RBC 3.38 L Hgb 9.1 L Hct 28.5 L MCV MCH 27 L MCHC RDW 17.4 H Plt Count Lymph % (Auto) [place] % (Auto) Eos % (Auto) Lymph # [place] # Eos # Seg Neutrophils % Seg Neuts % (Manual) 71.0 H Lymphocytes % (Manual) 1.0 L Monocytes % (Manual) 11.0 H Eosinophils % (Manual) 6.0 H Nucleated RBC % Seg Neutrophils # Seg Neutrophils # Man Lymphocytes # (Manual) 0.1 L Monocytes # (Manual) 1.0 H Eosinophils # (Manual) 0.6 H PT INR APTT Fibrinogen POC ABG pH 7.315 L ABG pH POC ABG pCO2 57.8 H POC ABG pO2 68 L ABG pO2 ABG HCO3 ABG O2 Saturation ABG Base Excess ABG Hemoglobin Oxyhemoglobin Sodium Potassium Chloride 96.3 L Carbon Dioxide BUN 102 H Creatinine 7.0 H Glucose 103 H POC Glucose Uric Acid Calcium Phosphorus Magnesium Iron TIBC AST ALT Total Creatine Kinase CK-MB (CK-2) Troponin T NT-Pro-B Natriuret Pep Total Protein Albumin Triglycerides HDL Cholesterol Folate Urine WBC (Auto) Urine Creatinine Urine Total Protein Vancomycin Trough 05/22/19 05/22/19 05/22/19 03:54 06:25 06:25 WBC RBC 3.22 L Hgb 8.6 L Hct 27.0 L MCV MCH 27 L MCHC RDW 17.5 H Plt Count Lymph % (Auto) [place] % (Auto) 16.2 H Eos % (Auto) 10.8 H Lymph # [place] # 1.3 H Eos # 0.9 H Seg Neutrophils % Seg Neuts % (Manual) Lymphocytes % (Manual) 10.0 L Monocytes % (Manual) 13.0 H Eosinophils % (Manual) 8.0 H Nucleated RBC % Seg Neutrophils # Seg Neutrophils # Man Lymphocytes # (Manual) 0.9 L Monocytes # (Manual) 1.1 H Eosinophils # (Manual) 0.7 H PT INR APTT Fibrinogen POC ABG pH 7.313 L ABG pH POC ABG pCO2 55.0 H POC ABG pO2 ABG pO2 ABG HCO3 ABG O2 Saturation ABG Base Excess ABG Hemoglobin Oxyhemoglobin Sodium 135 L Potassium Chloride 94.3 L Carbon Dioxide BUN 117 H Creatinine 7.8 H Glucose POC Glucose Uric Acid Calcium 8.2 L Phosphorus Magnesium Iron TIBC AST ALT Total Creatine Kinase CK-MB (CK-2) Troponin T NT-Pro-B Natriuret Pep Total Protein Albumin Triglycerides HDL Cholesterol Folate Urine WBC (Auto) Urine Creatinine Urine Total Protein Vancomycin Trough 05/23/19 05/24/19 05/24/19 05:21 05:00 05:00 WBC RBC 3.18 L Hgb 8.5 L Hct 26.7 L MCV MCH 27 L MCHC RDW 17.9 H Plt Count Lymph % (Auto) [place] % (Auto) Eos % (Auto) Lymph # [place] # Eos # Seg Neutrophils % Seg Neuts % (Manual) Lymphocytes % (Manual) Monocytes % (Manual) Eosinophils % (Manual) Nucleated RBC % Seg Neutrophils # Seg Neutrophils # Man Lymphocytes # (Manual) Monocytes # (Manual) Eosinophils # (Manual) PT INR APTT Fibrinogen POC ABG pH ABG pH POC ABG pCO2 49.7 H POC ABG pO2 73 L ABG pO2 ABG HCO3 ABG O2 Saturation ABG Base Excess ABG Hemoglobin Oxyhemoglobin Sodium Potassium Chloride 95.7 L Carbon Dioxide BUN 97 H Creatinine 6.5 H Glucose POC Glucose Uric Acid Calcium 8.0 L Phosphorus Magnesium Iron TIBC AST ALT Total Creatine Kinase CK-MB (CK-2) Troponin T NT-Pro-B Natriuret Pep Total Protein Albumin Triglycerides HDL Cholesterol Folate Urine WBC (Auto) Urine Creatinine Urine Total Protein Vancomycin Trough 05/24/19 05/25/19 05/25/19 06:17 04:22 15:45 WBC RBC 2.98 L Hgb 8.1 L Hct 24.9 L MCV MCH 27 L MCHC RDW 17.8 H Plt Count Lymph % (Auto) [place] % (Auto) Eos % (Auto) Lymph # [place] # Eos # Seg Neutrophils % Seg Neuts % (Manual) Lymphocytes % (Manual) Monocytes % (Manual) Eosinophils % (Manual) Nucleated RBC % Seg Neutrophils # Seg Neutrophils # Man Lymphocytes # (Manual) Monocytes # (Manual) Eosinophils # (Manual) PT INR APTT Fibrinogen POC ABG pH 7.330 L 7.313 L ABG pH POC ABG pCO2 52.5 H 51.1 H POC ABG pO2 77 L ABG pO2 ABG HCO3 ABG O2 Saturation ABG Base Excess ABG Hemoglobin Oxyhemoglobin Sodium Potassium Chloride Carbon Dioxide BUN Creatinine Glucose POC Glucose Uric Acid Calcium Phosphorus Magnesium Iron TIBC AST ALT Total Creatine Kinase CK-MB (CK-2) Troponin T NT-Pro-B Natriuret Pep Total Protein Albumin Triglycerides HDL Cholesterol Folate Urine WBC (Auto) Urine Creatinine Urine Total Protein Vancomycin Trough 05/25/19 05/26/19 05/26/19 15:45 04:13 05:00 WBC RBC 3.10 L Hgb 8.4 L Hct 26.0 L MCV MCH 27 L MCHC RDW 17.4 H Plt Count Lymph % (Auto) [place] % (Auto) Eos % (Auto) Lymph # [place] # Eos # Seg Neutrophils % Seg Neuts % (Manual) Lymphocytes % (Manual) Monocytes % (Manual) Eosinophils % (Manual) Nucleated RBC % Seg Neutrophils # Seg Neutrophils # Man Lymphocytes # (Manual) Monocytes # (Manual) Eosinophils # (Manual) PT INR APTT Fibrinogen POC ABG pH 7.295 L ABG pH POC ABG pCO2 56.5 H POC ABG pO2 63 L ABG pO2 ABG HCO3 ABG O2 Saturation ABG Base Excess ABG Hemoglobin Oxyhemoglobin Sodium 136 L Potassium Chloride 96.8 L Carbon Dioxide BUN 83 H Creatinine 5.9 H Glucose POC Glucose Uric Acid Calcium 7.6 L Phosphorus Magnesium Iron TIBC AST ALT Total Creatine Kinase CK-MB (CK-2) Troponin T NT-Pro-B Natriuret Pep Total Protein Albumin Triglycerides HDL Cholesterol Folate Urine WBC (Auto) Urine Creatinine Urine Total Protein Vancomycin Trough 05/26/19 05/27/19 05/28/19 05:00 04:48 04:47 WBC RBC Hgb Hct MCV MCH MCHC RDW Plt Count Lymph % (Auto) [place] % (Auto) Eos % (Auto) Lymph # [place] # Eos # Seg Neutrophils % Seg Neuts % (Manual) Lymphocytes % (Manual) Monocytes % (Manual) Eosinophils % (Manual) Nucleated RBC % Seg Neutrophils # Seg Neutrophils # Man Lymphocytes # (Manual) Monocytes # (Manual) Eosinophils # (Manual) PT INR APTT Fibrinogen POC ABG pH 7.323 L ABG pH 7.284 L POC ABG pCO2 56.2 H POC ABG pO2 ABG pO2 71.6 L ABG HCO3 ABG O2 Saturation 92.0 L ABG Base Excess ABG Hemoglobin 7.7 L Oxyhemoglobin 89.9 L Sodium 136 L Potassium Chloride 95.3 L Carbon Dioxide BUN 96 H Creatinine 6.5 H Glucose 108 H POC Glucose Uric Acid Calcium 7.6 L Phosphorus Magnesium Iron TIBC AST ALT Total Creatine Kinase CK-MB (CK-2) Troponin T NT-Pro-B Natriuret Pep Total Protein Albumin Triglycerides HDL Cholesterol Folate Urine WBC (Auto) Urine Creatinine Urine Total Protein Vancomycin Trough 05/28/19 05/29/19 05/29/19 12:30 12:47 23:44 WBC RBC Hgb Hct MCV MCH MCHC RDW Plt Count Lymph % (Auto) [place] % (Auto) Eos % (Auto) Lymph # [place] # Eos # Seg Neutrophils % Seg Neuts % (Manual) Lymphocytes % (Manual) Monocytes % (Manual) Eosinophils % (Manual) Nucleated RBC % Seg Neutrophils # Seg Neutrophils # Man Lymphocytes # (Manual) Monocytes # (Manual) Eosinophils # (Manual) PT INR APTT Fibrinogen POC ABG pH ABG pH POC ABG pCO2 POC ABG pO2 ABG pO2 ABG HCO3 ABG O2 Saturation ABG Base Excess ABG Hemoglobin Oxyhemoglobin Sodium 135 L Potassium Chloride 95.3 L Carbon Dioxide BUN 82 H Creatinine 6.0 H Glucose POC Glucose 136 H 159 H Uric Acid Calcium 7.5 L Phosphorus Magnesium Iron TIBC AST ALT Total Creatine Kinase CK-MB (CK-2) Troponin T NT-Pro-B Natriuret Pep Total Protein Albumin Triglycerides HDL Cholesterol Folate Urine WBC (Auto) Urine Creatinine Urine Total Protein Vancomycin Trough 05/30/19 05/30/19 05/30/19 04:30 05:38 12:00 WBC RBC 3.01 L Hgb 8.2 L Hct 25.3 L MCV MCH 27 L MCHC RDW 17.5 H Plt Count Lymph % (Auto) [place] % (Auto) Eos % (Auto) Lymph # [place] # Eos # Seg Neutrophils % Seg Neuts % (Manual) 80.0 H Lymphocytes % (Manual) 10.0 L Monocytes % (Manual) Eosinophils % (Manual) Nucleated RBC % Seg Neutrophils # Seg Neutrophils # Man 8.0 H Lymphocytes # (Manual) 1.0 L Monocytes # (Manual) Eosinophils # (Manual) PT INR APTT Fibrinogen POC ABG pH ABG pH POC ABG pCO2 POC ABG pO2 73 L ABG pO2 ABG HCO3 ABG O2 Saturation ABG Base Excess ABG Hemoglobin Oxyhemoglobin Sodium Potassium Chloride Carbon Dioxide BUN Creatinine Glucose POC Glucose 166 H Uric Acid Calcium Phosphorus Magnesium Iron TIBC AST ALT Total Creatine Kinase CK-MB (CK-2) Troponin T NT-Pro-B Natriuret Pep Total Protein Albumin Triglycerides HDL Cholesterol Folate Urine WBC (Auto) Urine Creatinine Urine Total Protein Vancomycin Trough 05/30/19 05/31/19 05/31/19 23:45 04:07 13:04 WBC 14.3 H RBC 2.88 L Hgb 7.7 L Hct 23.9 L MCV 83 L MCH 27 L MCHC RDW 17.8 H Plt Count Lymph % (Auto) [place] % (Auto) Eos % (Auto) Lymph # [place] # Eos # Seg Neutrophils % Seg Neuts % (Manual) 83.0 H Lymphocytes % (Manual) 11.0 L Monocytes % (Manual) Eosinophils % (Manual) Nucleated RBC % Seg Neutrophils # Seg Neutrophils # Man 11.9 H Lymphocytes # (Manual) Monocytes # (Manual) 0.9 H Eosinophils # (Manual) PT INR APTT Fibrinogen POC ABG pH ABG pH POC ABG pCO2 47.4 H POC ABG pO2 ABG pO2 ABG HCO3 ABG O2 Saturation ABG Base Excess ABG Hemoglobin Oxyhemoglobin Sodium Potassium Chloride Carbon Dioxide BUN Creatinine Glucose POC Glucose 209 H Uric Acid Calcium Phosphorus Magnesium Iron TIBC AST ALT Total Creatine Kinase CK-MB (CK-2) Troponin T NT-Pro-B Natriuret Pep Total Protein Albumin Triglycerides HDL Cholesterol Folate Urine WBC (Auto) Urine Creatinine Urine Total Protein Vancomycin Trough 05/31/19 05/31/19 06/01/19 13:04 16:42 00:15 WBC RBC Hgb Hct MCV MCH MCHC RDW Plt Count Lymph % (Auto) [place] % (Auto) Eos % (Auto) Lymph # [place] # Eos # Seg Neutrophils % Seg Neuts % (Manual) Lymphocytes % (Manual) Monocytes % (Manual) Eosinophils % (Manual) Nucleated RBC % Seg Neutrophils # Seg Neutrophils # Man Lymphocytes # (Manual) Monocytes # (Manual) Eosinophils # (Manual) PT INR APTT Fibrinogen POC ABG pH ABG pH POC ABG pCO2 POC ABG pO2 ABG pO2 ABG HCO3 ABG O2 Saturation ABG Base Excess ABG Hemoglobin Oxyhemoglobin Sodium 129 L Potassium Chloride 88.6 L Carbon Dioxide 19 L BUN 117 H Creatinine 6.7 H Glucose 205 H POC Glucose 228 H 223 H Uric Acid Calcium 7.4 L Phosphorus 7.40 H Magnesium Iron TIBC AST 58 H ALT 149 H Total Creatine Kinase CK-MB (CK-2) Troponin T NT-Pro-B Natriuret Pep Total Protein 6.0 L Albumin 2.5 L Triglycerides HDL Cholesterol Folate Urine WBC (Auto) Urine Creatinine Urine Total Protein Vancomycin Trough 06/01/19 06/01/1920 04:33 05:27 12:31 WBC RBC Hgb Hct MCV MCH MCHC RDW Plt Count Lymph % (Auto) [place] % (Auto) Eos % (Auto) Lymph # [place] # Eos # Seg Neutrophils % Seg Neuts % (Manual) Lymphocytes % (Manual) Monocytes % (Manual) Eosinophils % (Manual) Nucleated RBC % Seg Neutrophils # Seg Neutrophils # Man Lymphocytes # (Manual) Monocytes # (Manual) Eosinophils # (Manual) PT INR APTT Fibrinogen POC ABG pH ABG pH POC ABG pCO2 POC ABG pO2 ABG pO2 56.9 L ABG HCO3 ABG O2 Saturation 85.9 L ABG Base Excess ABG Hemoglobin 8.1 L Oxyhemoglobin 83.6 L Sodium Potassium Chloride Carbon Dioxide BUN Creatinine Glucose POC Glucose 183 H 217 H Uric Acid Calcium Phosphorus Magnesium Iron TIBC AST ALT Total Creatine Kinase CK-MB (CK-2) Troponin T NT-Pro-B Natriuret Pep Total Protein Albumin Triglycerides HDL Cholesterol Folate Urine WBC (Auto) Urine Creatinine Urine Total Protein Vancomycin Trough 06/01/19 06/02/19 06/02/19 18:20 00:00 05:33 WBC RBC Hgb Hct MCV MCH MCHC RDW Plt Count Lymph % (Auto) [place] % (Auto) Eos % (Auto) Lymph # [place] # Eos # Seg Neutrophils % Seg Neuts % (Manual) Lymphocytes % (Manual) Monocytes % (Manual) Eosinophils % (Manual) Nucleated RBC % Seg Neutrophils # Seg Neutrophils # Man Lymphocytes # (Manual) Monocytes # (Manual) Eosinophils # (Manual) PT INR APTT Fibrinogen POC ABG pH ABG pH POC ABG pCO2 POC ABG pO2 ABG pO2 ABG HCO3 ABG O2 Saturation ABG Base Excess ABG Hemoglobin Oxyhemoglobin Sodium Potassium Chloride Carbon Dioxide BUN Creatinine Glucose POC Glucose 265 H 279 H 259 H Uric Acid Calcium Phosphorus Magnesium Iron TIBC AST ALT Total Creatine Kinase CK-MB (CK-2) Troponin T NT-Pro-B Natriuret Pep Total Protein Albumin Triglycerides HDL Cholesterol Folate Urine WBC (Auto) Urine Creatinine Urine Total Protein Vancomycin Trough 06/02/19 06/02/19 06/02/19 11:06 11:06 11:42 WBC 13.1 H RBC 2.92 L Hgb 7.9 L Hct 24.4 L MCV MCH 27 L MCHC RDW 17.4 H Plt Count Lymph % (Auto) [place] % (Auto) Eos % (Auto) Lymph # [place] # Eos # Seg Neutrophils % Seg Neuts % (Manual) 78.0 H Lymphocytes % (Manual) 12.0 L Monocytes % (Manual) 10.0 H Eosinophils % (Manual) Nucleated RBC % Seg Neutrophils # Seg Neutrophils # Man 10.2 H Lymphocytes # (Manual) Monocytes # (Manual) 1.3 H Eosinophils # (Manual) PT INR APTT Fibrinogen POC ABG pH ABG pH POC ABG pCO2 POC ABG pO2 ABG pO2 ABG HCO3 ABG O2 Saturation ABG Base Excess ABG Hemoglobin Oxyhemoglobin Sodium 135 L Potassium Chloride 94.7 L Carbon Dioxide 21 L BUN 107 H Creatinine 4.5 H Glucose 286 H POC Glucose 263 H Uric Acid Calcium 7.9 L Phosphorus 6.30 H Magnesium Iron TIBC AST ALT 104 H Total Creatine Kinase CK-MB (CK-2) Troponin T NT-Pro-B Natriuret Pep Total Protein 6.0 L Albumin 2.7 L Triglycerides HDL Cholesterol Folate Urine WBC (Auto) Urine Creatinine Urine Total Protein Vancomycin Trough 06/02/19 06/02/19 06/03/19 18:17 23:55 05:30 WBC RBC Hgb Hct MCV MCH MCHC RDW Plt Count Lymph % (Auto) [place] % (Auto) Eos % (Auto) Lymph # [place] # Eos # Seg Neutrophils % Seg Neuts % (Manual) Lymphocytes % (Manual) Monocytes % (Manual) Eosinophils % (Manual) Nucleated RBC % Seg Neutrophils # Seg Neutrophils # Man Lymphocytes # (Manual) Monocytes # (Manual) Eosinophils # (Manual) PT INR APTT Fibrinogen POC ABG pH ABG pH POC ABG pCO2 POC ABG pO2 ABG pO2 ABG HCO3 ABG O2 Saturation ABG Base Excess ABG Hemoglobin Oxyhemoglobin Sodium Potassium Chloride 95.1 L Carbon Dioxide 21 L BUN 119 H Creatinine 4.1 H Glucose 330 H POC Glucose 276 H 244 H Uric Acid Calcium 8.1 L Phosphorus Magnesium Iron TIBC AST ALT 98 H Total Creatine Kinase CK-MB (CK-2) Troponin T NT-Pro-B Natriuret Pep Total Protein 5.8 L Albumin 2.8 L Triglycerides HDL Cholesterol Folate Urine WBC (Auto) Urine Creatinine Urine Total Protein Vancomycin Trough 06/03/19 06/03/19 06/03/19 05:30 06:04 09:42 WBC 12.8 H RBC 3.01 L Hgb 8.2 L Hct 25.4 L MCV MCH 27 L MCHC RDW 17.5 H Plt Count Lymph % (Auto) [place] % (Auto) Eos % (Auto) Lymph # [place] # Eos # Seg Neutrophils % Seg Neuts % (Manual) 78.0 H Lymphocytes % (Manual) 10.0 L Monocytes % (Manual) 12.0 H Eosinophils % (Manual) Nucleated RBC % Seg Neutrophils # Seg Neutrophils # Man 10.0 H Lymphocytes # (Manual) Monocytes # (Manual) 1.5 H Eosinophils # (Manual) PT INR APTT Fibrinogen POC ABG pH ABG pH POC ABG pCO2 POC ABG pO2 ABG pO2 ABG HCO3 ABG O2 Saturation ABG Base Excess ABG Hemoglobin Oxyhemoglobin Sodium Potassium Chloride Carbon Dioxide BUN 106 H Creatinine Glucose POC Glucose 254 H Uric Acid Calcium Phosphorus Magnesium Iron TIBC AST ALT Total Creatine Kinase CK-MB (CK-2) Troponin T NT-Pro-B Natriuret Pep Total Protein Albumin Triglycerides HDL Cholesterol Folate Urine WBC (Auto) Urine Creatinine Urine Total Protein Vancomycin Trough 06/03/19 06/03/19 06/03/19 12:52 17:25 23:37 WBC RBC Hgb Hct MCV MCH MCHC RDW Plt Count Lymph % (Auto) [place] % (Auto) Eos % (Auto) Lymph # [place] # Eos # Seg Neutrophils % Seg Neuts % (Manual) Lymphocytes % (Manual) Monocytes % (Manual) Eosinophils % (Manual) Nucleated RBC % Seg Neutrophils # Seg Neutrophils # Man Lymphocytes # (Manual) Monocytes # (Manual) Eosinophils # (Manual) PT INR APTT Fibrinogen POC ABG pH ABG pH POC ABG pCO2 POC ABG pO2 ABG pO2 ABG HCO3 ABG O2 Saturation ABG Base Excess ABG Hemoglobin Oxyhemoglobin Sodium Potassium Chloride Carbon Dioxide BUN Creatinine Glucose POC Glucose 274 H 285 H 310 H Uric Acid Calcium Phosphorus Magnesium Iron TIBC AST ALT Total Creatine Kinase CK-MB (CK-2) Troponin T NT-Pro-B Natriuret Pep Total Protein Albumin Triglycerides HDL Cholesterol Folate Urine WBC (Auto) Urine Creatinine Urine Total Protein Vancomycin Trough 06/04/19 06/04/19 06/04/19 04:57 05:03 11:50 WBC RBC Hgb Hct MCV MCH MCHC RDW Plt Count Lymph % (Auto) [place] % (Auto) Eos % (Auto) Lymph # [place] # Eos # Seg Neutrophils % Seg Neuts % (Manual) Lymphocytes % (Manual) Monocytes % (Manual) Eosinophils % (Manual) Nucleated RBC % Seg Neutrophils # Seg Neutrophils # Man Lymphocytes # (Manual) Monocytes # (Manual) Eosinophils # (Manual) PT INR APTT Fibrinogen POC ABG pH 7.488 H ABG pH POC ABG pCO2 POC ABG pO2 ABG pO2 ABG HCO3 ABG O2 Saturation ABG Base Excess ABG Hemoglobin Oxyhemoglobin Sodium Potassium Chloride Carbon Dioxide BUN Creatinine Glucose POC Glucose 275 H 279 H Uric Acid Calcium Phosphorus Magnesium Iron TIBC AST ALT Total Creatine Kinase CK-MB (CK-2) Troponin T NT-Pro-B Natriuret Pep Total Protein Albumin Triglycerides HDL Cholesterol Folate Urine WBC (Auto) Urine Creatinine Urine Total Protein Vancomycin Trough 06/04/19 06/04/19 06/04/19 18:32 22:03 23:55 WBC RBC Hgb Hct MCV MCH MCHC RDW Plt Count Lymph % (Auto) [place] % (Auto) Eos % (Auto) Lymph # [place] # Eos # Seg Neutrophils % Seg Neuts % (Manual) Lymphocytes % (Manual) Monocytes % (Manual) Eosinophils % (Manual) Nucleated RBC % Seg Neutrophils # Seg Neutrophils # Man Lymphocytes # (Manual) Monocytes # (Manual) Eosinophils # (Manual) PT INR APTT Fibrinogen POC ABG pH ABG pH POC ABG pCO2 POC ABG pO2 ABG pO2 ABG HCO3 ABG O2 Saturation ABG Base Excess ABG Hemoglobin Oxyhemoglobin Sodium Potassium Chloride Carbon Dioxide BUN Creatinine Glucose POC Glucose 267 H 307 H 292 H Uric Acid Calcium Phosphorus Magnesium Iron TIBC AST ALT Total Creatine Kinase CK-MB (CK-2) Troponin T NT-Pro-B Natriuret Pep Total Protein Albumin Triglycerides HDL Cholesterol Folate Urine WBC (Auto) Urine Creatinine Urine Total Protein Vancomycin Trough 06/05/19 06/05/19 06/05/19 03:52 06:41 12:29 WBC RBC Hgb Hct MCV MCH MCHC RDW Plt Count Lymph % (Auto) [place] % (Auto) Eos % (Auto) Lymph # [place] # Eos # Seg Neutrophils % Seg Neuts % (Manual) Lymphocytes % (Manual) Monocytes % (Manual) Eosinophils % (Manual) Nucleated RBC % Seg Neutrophils # Seg Neutrophils # Man Lymphocytes # (Manual) Monocytes # (Manual) Eosinophils # (Manual) PT INR APTT Fibrinogen POC ABG pH 7.462 H ABG pH POC ABG pCO2 POC ABG pO2 ABG pO2 ABG HCO3 ABG O2 Saturation ABG Base Excess ABG Hemoglobin Oxyhemoglobin Sodium Potassium Chloride Carbon Dioxide BUN Creatinine Glucose POC Glucose 369 H 265 H Uric Acid Calcium Phosphorus Magnesium Iron TIBC AST ALT Total Creatine Kinase CK-MB (CK-2) Troponin T NT-Pro-B Natriuret Pep Total Protein Albumin Triglycerides HDL Cholesterol Folate Urine WBC (Auto) Urine Creatinine Urine Total Protein Vancomycin Trough 06/05/19 06/05/19 06/05/19 18:20 21:42 23:21 WBC RBC Hgb Hct MCV MCH MCHC RDW Plt Count Lymph % (Auto) [place] % (Auto) Eos % (Auto) Lymph # [place] # Eos # Seg Neutrophils % Seg Neuts % (Manual) Lymphocytes % (Manual) Monocytes % (Manual) Eosinophils % (Manual) Nucleated RBC % Seg Neutrophils # Seg Neutrophils # Man Lymphocytes # (Manual) Monocytes # (Manual) Eosinophils # (Manual) PT INR APTT Fibrinogen POC ABG pH ABG pH POC ABG pCO2 POC ABG pO2 ABG pO2 ABG HCO3 ABG O2 Saturation ABG Base Excess ABG Hemoglobin Oxyhemoglobin Sodium Potassium Chloride Carbon Dioxide BUN Creatinine Glucose POC Glucose 249 H 246 H 274 H Uric Acid Calcium Phosphorus Magnesium Iron TIBC AST ALT Total Creatine Kinase CK-MB (CK-2) Troponin T NT-Pro-B Natriuret Pep Total Protein Albumin Triglycerides HDL Cholesterol Folate Urine WBC (Auto) Urine Creatinine Urine Total Protein Vancomycin Trough 06/06/19 06/06/19 06/06/19 04:00 05:49 11:34 WBC 18.1 H RBC 3.53 L Hgb 9.5 L Hct 30.3 L MCV MCH 27 L MCHC 31 L RDW 19.5 H Plt Count Lymph % (Auto) [place] % (Auto) Eos % (Auto) Lymph # [place] # Eos # Seg Neutrophils % Seg Neuts % (Manual) 87.0 H Lymphocytes % (Manual) 3.0 L Monocytes % (Manual) 8.0 H Eosinophils % (Manual) Nucleated RBC % Seg Neutrophils # Seg Neutrophils # Man 15.7 H Lymphocytes # (Manual) 0.5 L Monocytes # (Manual) 1.4 H Eosinophils # (Manual) PT INR APTT Fibrinogen POC ABG pH ABG pH 7.472 H POC ABG pCO2 POC ABG pO2 ABG pO2 76.4 L ABG HCO3 28.1 H ABG O2 Saturation ABG Base Excess 4.3 H ABG Hemoglobin 12.5 L Oxyhemoglobin 93.8 L Sodium Potassium Chloride Carbon Dioxide BUN Creatinine Glucose POC Glucose 340 H Uric Acid Calcium Phosphorus Magnesium Iron TIBC AST ALT Total Creatine Kinase CK-MB (CK-2) Troponin T NT-Pro-B Natriuret Pep Total Protein Albumin Triglycerides HDL Cholesterol Folate Urine WBC (Auto) Urine Creatinine Urine Total Protein Vancomycin Trough 06/06/19 06/06/19 06/06/19 11:34 12:11 18:10 WBC RBC Hgb Hct MCV MCH MCHC RDW Plt Count Lymph % (Auto) [place] % (Auto) Eos % (Auto) Lymph # [place] # Eos # Seg Neutrophils % Seg Neuts % (Manual) Lymphocytes % (Manual) Monocytes % (Manual) Eosinophils % (Manual) Nucleated RBC % Seg Neutrophils # Seg Neutrophils # Man Lymphocytes # (Manual) Monocytes # (Manual) Eosinophils # (Manual) PT INR APTT Fibrinogen POC ABG pH ABG pH POC ABG pCO2 POC ABG pO2 ABG pO2 ABG HCO3 ABG O2 Saturation ABG Base Excess ABG Hemoglobin Oxyhemoglobin Sodium Potassium Chloride Carbon Dioxide BUN 70 H Creatinine Glucose 310 H POC Glucose 283 H 301 H Uric Acid Calcium 8.3 L Phosphorus 4.60 H Magnesium Iron TIBC AST ALT 75 H Total Creatine Kinase CK-MB (CK-2) Troponin T NT-Pro-B Natriuret Pep Total Protein 5.6 L Albumin 2.9 L Triglycerides HDL Cholesterol Folate Urine WBC (Auto) Urine Creatinine Urine Total Protein Vancomycin Trough 06/06/19 06/06/19 06/07/19 22:21 23:16 04:30 WBC RBC Hgb Hct MCV MCH MCHC RDW Plt Count Lymph % (Auto) [place] % (Auto) Eos % (Auto) Lymph # [place] # Eos # Seg Neutrophils % Seg Neuts % (Manual) Lymphocytes % (Manual) Monocytes % (Manual) Eosinophils % (Manual) Nucleated RBC % Seg Neutrophils # Seg Neutrophils # Man Lymphocytes # (Manual) Monocytes # (Manual) Eosinophils # (Manual) PT INR APTT Fibrinogen POC ABG pH ABG pH 7.480 H POC ABG pCO2 POC ABG pO2 ABG pO2 77.0 L ABG HCO3 27.2 H ABG O2 Saturation ABG Base Excess 3.5 H ABG Hemoglobin 7.1 L Oxyhemoglobin 94.2 L Sodium Potassium Chloride Carbon Dioxide BUN Creatinine Glucose POC Glucose 289 H 343 H Uric Acid Calcium Phosphorus Magnesium Iron TIBC AST ALT Total Creatine Kinase CK-MB (CK-2) Troponin T NT-Pro-B Natriuret Pep Total Protein Albumin Triglycerides HDL Cholesterol Folate Urine WBC (Auto) Urine Creatinine Urine Total Protein Vancomycin Trough 06/07/19 06/07/19 06/07/19 05:15 12:52 18:41 WBC RBC Hgb Hct MCV MCH MCHC RDW Plt Count Lymph % (Auto) [place] % (Auto) Eos % (Auto) Lymph # [place] # Eos # Seg Neutrophils % Seg Neuts % (Manual) Lymphocytes % (Manual) Monocytes % (Manual) Eosinophils % (Manual) Nucleated RBC % Seg Neutrophils # Seg Neutrophils # Man Lymphocytes # (Manual) Monocytes # (Manual) Eosinophils # (Manual) PT INR APTT Fibrinogen POC ABG pH ABG pH POC ABG pCO2 POC ABG pO2 ABG pO2 ABG HCO3 ABG O2 Saturation ABG Base Excess ABG Hemoglobin Oxyhemoglobin Sodium Potassium Chloride Carbon Dioxide BUN Creatinine Glucose POC Glucose 307 H 226 H 187 H Uric Acid Calcium Phosphorus Magnesium Iron TIBC AST ALT Total Creatine Kinase CK-MB (CK-2) Troponin T NT-Pro-B Natriuret Pep Total Protein Albumin Triglycerides HDL Cholesterol Folate Urine WBC (Auto) Urine Creatinine Urine Total Protein Vancomycin Trough 06/07/19 06/07/19 06/08/19 22:54 23:46 04:20 WBC 16.0 H RBC Hgb 10.0 L Hct 32.1 L MCV MCH 27 L MCHC 31 L RDW 19.4 H Plt Count Lymph % (Auto) [place] % (Auto) Eos % (Auto) Lymph # [place] # Eos # Seg Neutrophils % Seg Neuts % (Manual) 87.0 H Lymphocytes % (Manual) 7.0 L Monocytes % (Manual) Eosinophils % (Manual) Nucleated RBC % Seg Neutrophils # Seg Neutrophils # Man 13.9 H Lymphocytes # (Manual) 1.1 L Monocytes # (Manual) 1.0 H Eosinophils # (Manual) PT INR APTT Fibrinogen POC ABG pH ABG pH POC ABG pCO2 POC ABG pO2 ABG pO2 ABG HCO3 ABG O2 Saturation ABG Base Excess ABG Hemoglobin Oxyhemoglobin Sodium Potassium Chloride Carbon Dioxide BUN Creatinine Glucose POC Glucose 199 H 172 H Uric Acid Calcium Phosphorus Magnesium Iron TIBC AST ALT Total Creatine Kinase CK-MB (CK-2) Troponin T NT-Pro-B Natriuret Pep Total Protein Albumin Triglycerides HDL Cholesterol Folate Urine WBC (Auto) Urine Creatinine Urine Total Protein Vancomycin Trough 06/08/19 06/08/19 06/08/19 04:20 05:15 11:31 WBC RBC Hgb Hct MCV MCH MCHC RDW Plt Count Lymph % (Auto) [place] % (Auto) Eos % (Auto) Lymph # [place] # Eos # Seg Neutrophils % Seg Neuts % (Manual) Lymphocytes % (Manual) Monocytes % (Manual) Eosinophils % (Manual) Nucleated RBC % Seg Neutrophils # Seg Neutrophils # Man Lymphocytes # (Manual) Monocytes # (Manual) Eosinophils # (Manual) PT INR APTT Fibrinogen POC ABG pH ABG pH POC ABG pCO2 POC ABG pO2 ABG pO2 ABG HCO3 ABG O2 Saturation ABG Base Excess ABG Hemoglobin Oxyhemoglobin Sodium 146 H D Potassium Chloride Carbon Dioxide BUN 77 H Creatinine Glucose 205 H POC Glucose 209 H 181 H Uric Acid Calcium Phosphorus Magnesium Iron TIBC AST ALT 66 H Total Creatine Kinase CK-MB (CK-2) Troponin T NT-Pro-B Natriuret Pep Total Protein 5.5 L Albumin 2.9 L Triglycerides HDL Cholesterol Folate Urine WBC (Auto) Urine Creatinine Urine Total Protein Vancomycin Trough 06/08/19 06/08/19 06/09/19 17:28 23:24 05:20 WBC RBC Hgb Hct MCV MCH MCHC RDW Plt Count Lymph % (Auto) [place] % (Auto) Eos % (Auto) Lymph # [place] # Eos # Seg Neutrophils % Seg Neuts % (Manual) Lymphocytes % (Manual) Monocytes % (Manual) Eosinophils % (Manual) Nucleated RBC % Seg Neutrophils # Seg Neutrophils # Man Lymphocytes # (Manual) Monocytes # (Manual) Eosinophils # (Manual) PT INR APTT Fibrinogen POC ABG pH ABG pH POC ABG pCO2 POC ABG pO2 ABG pO2 ABG HCO3 ABG O2 Saturation ABG Base Excess ABG Hemoglobin Oxyhemoglobin Sodium Potassium Chloride Carbon Dioxide BUN Creatinine Glucose POC Glucose 215 H 200 H 173 H Uric Acid Calcium Phosphorus Magnesium Iron TIBC AST ALT Total Creatine Kinase CK-MB (CK-2) Troponin T NT-Pro-B Natriuret Pep Total Protein Albumin Triglycerides HDL Cholesterol Folate Urine WBC (Auto) Urine Creatinine Urine Total Protein Vancomycin Trough 06/09/19 06/09/19 06/09/19 12:07 18:32 23:51 WBC RBC Hgb Hct MCV MCH MCHC RDW Plt Count Lymph % (Auto) [place] % (Auto) Eos % (Auto) Lymph # [place] # Eos # Seg Neutrophils % Seg Neuts % (Manual) Lymphocytes % (Manual) Monocytes % (Manual) Eosinophils % (Manual) Nucleated RBC % Seg Neutrophils # Seg Neutrophils # Man Lymphocytes # (Manual) Monocytes # (Manual) Eosinophils # (Manual) PT INR APTT Fibrinogen POC ABG pH ABG pH POC ABG pCO2 POC ABG pO2 ABG pO2 ABG HCO3 ABG O2 Saturation ABG Base Excess ABG Hemoglobin Oxyhemoglobin Sodium Potassium Chloride Carbon Dioxide BUN Creatinine Glucose POC Glucose 117 H 169 H 147 H Uric Acid Calcium Phosphorus Magnesium Iron TIBC AST ALT Total Creatine Kinase CK-MB (CK-2) Troponin T NT-Pro-B Natriuret Pep Total Protein Albumin Triglycerides HDL Cholesterol Folate Urine WBC (Auto) Urine Creatinine Urine Total Protein Vancomycin Trough 06/10/19 06/10/19 06/10/19 05:45 05:45 06:01 WBC 14.6 H RBC Hgb 9.9 L Hct 32.2 L MCV MCH 27 L MCHC 31 L RDW 19.6 H Plt Count Lymph % (Auto) 10.5 L [place] % (Auto) 9.4 H Eos % (Auto) Lymph # [place] # 1.4 H Eos # Seg Neutrophils % 79.9 H Seg Neuts % (Manual) Lymphocytes % (Manual) Monocytes % (Manual) Eosinophils % (Manual) Nucleated RBC % Seg Neutrophils # 11.7 H Seg Neutrophils # Man Lymphocytes # (Manual) Monocytes # (Manual) Eosinophils # (Manual) PT INR APTT Fibrinogen POC ABG pH ABG pH POC ABG pCO2 POC ABG pO2 ABG pO2 ABG HCO3 ABG O2 Saturation ABG Base Excess ABG Hemoglobin Oxyhemoglobin Sodium 150 H Potassium Chloride 108.3 H Carbon Dioxide BUN 49 H Creatinine Glucose 172 H POC Glucose 165 H Uric Acid Calcium Phosphorus Magnesium 1.40 L Iron TIBC AST ALT Total Creatine Kinase CK-MB (CK-2) Troponin T NT-Pro-B Natriuret Pep Total Protein Albumin Triglycerides HDL Cholesterol Folate Urine WBC (Auto) Urine Creatinine Urine Total Protein Vancomycin Trough 06/10/19 06/10/19 06/11/19 12:11 18:30 00:02 WBC RBC Hgb Hct MCV MCH MCHC RDW Plt Count Lymph % (Auto) [place] % (Auto) Eos % (Auto) Lymph # [place] # Eos # Seg Neutrophils % Seg Neuts % (Manual) Lymphocytes % (Manual) Monocytes % (Manual) Eosinophils % (Manual) Nucleated RBC % Seg Neutrophils # Seg Neutrophils # Man Lymphocytes # (Manual) Monocytes # (Manual) Eosinophils # (Manual) PT INR APTT Fibrinogen POC ABG pH ABG pH POC ABG pCO2 POC ABG pO2 ABG pO2 ABG HCO3 ABG O2 Saturation ABG Base Excess ABG Hemoglobin Oxyhemoglobin Sodium Potassium Chloride Carbon Dioxide BUN Creatinine Glucose POC Glucose 150 H 154 H 130 H Uric Acid Calcium Phosphorus Magnesium Iron TIBC AST ALT Total Creatine Kinase CK-MB (CK-2) Troponin T NT-Pro-B Natriuret Pep Total Protein Albumin Triglycerides HDL Cholesterol Folate Urine WBC (Auto) Urine Creatinine Urine Total Protein Vancomycin Trough 06/11/19 06/11/19 06/11/19 05:33 08:34 12:33 WBC RBC Hgb Hct MCV MCH MCHC RDW Plt Count Lymph % (Auto) [place] % (Auto) Eos % (Auto) Lymph # [place] # Eos # Seg Neutrophils % Seg Neuts % (Manual) Lymphocytes % (Manual) Monocytes % (Manual) Eosinophils % (Manual) Nucleated RBC % Seg Neutrophils # Seg Neutrophils # Man Lymphocytes # (Manual) Monocytes # (Manual) Eosinophils # (Manual) PT INR APTT Fibrinogen POC ABG pH ABG pH POC ABG pCO2 POC ABG pO2 ABG pO2 ABG HCO3 ABG O2 Saturation ABG Base Excess ABG Hemoglobin Oxyhemoglobin Sodium 154 H Potassium Chloride 111.6 H Carbon Dioxide BUN 41 H Creatinine Glucose 147 H POC Glucose 183 H 185 H Uric Acid Calcium Phosphorus Magnesium Iron TIBC AST ALT Total Creatine Kinase CK-MB (CK-2) Troponin T NT-Pro-B Natriuret Pep Total Protein Albumin Triglycerides HDL Cholesterol Folate Urine WBC (Auto) Urine Creatinine Urine Total Protein Vancomycin Trough 06/11/19 06/11/19 06/12/19 18:22 23:46 03:21 WBC 11.9 H RBC 3.61 L Hgb 9.9 L Hct 31.7 L MCV MCH 27 L MCHC 31 L RDW 19.3 H Plt Count Lymph % (Auto) 10.6 L [place] % (Auto) 8.6 H Eos % (Auto) Lymph # [place] # 1.0 H Eos # Seg Neutrophils % 80.6 H Seg Neuts % (Manual) Lymphocytes % (Manual) Monocytes % (Manual) Eosinophils % (Manual) Nucleated RBC % Seg Neutrophils # 9.6 H Seg Neutrophils # Man Lymphocytes # (Manual) Monocytes # (Manual) Eosinophils # (Manual) PT INR APTT Fibrinogen POC ABG pH ABG pH POC ABG pCO2 POC ABG pO2 ABG pO2 ABG HCO3 ABG O2 Saturation ABG Base Excess ABG Hemoglobin Oxyhemoglobin Sodium Potassium Chloride Carbon Dioxide BUN Creatinine Glucose POC Glucose 158 H 182 H Uric Acid Calcium Phosphorus Magnesium Iron TIBC AST ALT Total Creatine Kinase CK-MB (CK-2) Troponin T NT-Pro-B Natriuret Pep Total Protein Albumin Triglycerides HDL Cholesterol Folate Urine WBC (Auto) Urine Creatinine Urine Total Protein Vancomycin Trough 06/12/19 06/12/19 06/12/19 03:21 06:04 11:28 WBC RBC Hgb Hct MCV MCH MCHC RDW Plt Count Lymph % (Auto) [place] % (Auto) Eos % (Auto) Lymph # [place] # Eos # Seg Neutrophils % Seg Neuts % (Manual) Lymphocytes % (Manual) Monocytes % (Manual) Eosinophils % (Manual) Nucleated RBC % Seg Neutrophils # Seg Neutrophils # Man Lymphocytes # (Manual) Monocytes # (Manual) Eosinophils # (Manual) PT INR APTT Fibrinogen POC ABG pH ABG pH POC ABG pCO2 POC ABG pO2 ABG pO2 ABG HCO3 ABG O2 Saturation ABG Base Excess ABG Hemoglobin Oxyhemoglobin Sodium 148 H Potassium Chloride 107.3 H Carbon Dioxide BUN 34 H Creatinine 0.7 L Glucose 194 H POC Glucose 133 H 167 H Uric Acid Calcium Phosphorus Magnesium 1.40 L Iron TIBC AST ALT Total Creatine Kinase CK-MB (CK-2) Troponin T NT-Pro-B Natriuret Pep Total Protein Albumin Triglycerides HDL Cholesterol Folate Urine WBC (Auto) Urine Creatinine Urine Total Protein Vancomycin Trough 06/12/19 06/12/19 06/13/19 18:47 21:27 00:04 WBC RBC Hgb Hct MCV MCH MCHC RDW Plt Count Lymph % (Auto) [place] % (Auto) Eos % (Auto) Lymph # [place] # Eos # Seg Neutrophils % Seg Neuts % (Manual) Lymphocytes % (Manual) Monocytes % (Manual) Eosinophils % (Manual) Nucleated RBC % Seg Neutrophils # Seg Neutrophils # Man Lymphocytes # (Manual) Monocytes # (Manual) Eosinophils # (Manual) PT INR APTT Fibrinogen POC ABG pH ABG pH POC ABG pCO2 POC ABG pO2 ABG pO2 ABG HCO3 ABG O2 Saturation ABG Base Excess ABG Hemoglobin Oxyhemoglobin Sodium Potassium Chloride Carbon Dioxide BUN Creatinine Glucose POC Glucose 210 H 263 H 248 H Uric Acid Calcium Phosphorus Magnesium Iron TIBC AST ALT Total Creatine Kinase CK-MB (CK-2) Troponin T NT-Pro-B Natriuret Pep Total Protein Albumin Triglycerides HDL Cholesterol Folate Urine WBC (Auto) Urine Creatinine Urine Total Protein Vancomycin Trough 06/13/19 06/13/19 06/13/19 04:32 05:46 13:30 WBC RBC Hgb Hct MCV MCH MCHC RDW Plt Count Lymph % (Auto) [place] % (Auto) Eos % (Auto) Lymph # [place] # Eos # Seg Neutrophils % Seg Neuts % (Manual) Lymphocytes % (Manual) Monocytes % (Manual) Eosinophils % (Manual) Nucleated RBC % Seg Neutrophils # Seg Neutrophils # Man Lymphocytes # (Manual) Monocytes # (Manual) Eosinophils # (Manual) PT INR APTT Fibrinogen POC ABG pH ABG pH POC ABG pCO2 POC ABG pO2 ABG pO2 ABG HCO3 ABG O2 Saturation ABG Base Excess ABG Hemoglobin Oxyhemoglobin Sodium Potassium Chloride Carbon Dioxide BUN 27 H Creatinine 0.7 L Glucose 253 H POC Glucose 201 H 241 H Uric Acid Calcium Phosphorus Magnesium Iron TIBC AST ALT Total Creatine Kinase CK-MB (CK-2) Troponin T NT-Pro-B Natriuret Pep Total Protein Albumin Triglycerides HDL Cholesterol Folate Urine WBC (Auto) Urine Creatinine Urine Total Protein Vancomycin Trough 06/13/19 06/13/19 06/14/19 17:33 23:49 04:50 WBC RBC Hgb Hct MCV MCH MCHC RDW Plt Count Lymph % (Auto) [place] % (Auto) Eos % (Auto) Lymph # [place] # Eos # Seg Neutrophils % Seg Neuts % (Manual) Lymphocytes % (Manual) Monocytes % (Manual) Eosinophils % (Manual) Nucleated RBC % Seg Neutrophils # Seg Neutrophils # Man Lymphocytes # (Manual) Monocytes # (Manual) Eosinophils # (Manual) PT INR APTT Fibrinogen POC ABG pH ABG pH POC ABG pCO2 POC ABG pO2 ABG pO2 ABG HCO3 ABG O2 Saturation ABG Base Excess ABG Hemoglobin Oxyhemoglobin Sodium Potassium Chloride Carbon Dioxide BUN 37 H Creatinine Glucose 256 H POC Glucose 264 H 236 H Uric Acid Calcium Phosphorus Magnesium Iron TIBC AST ALT Total Creatine Kinase CK-MB (CK-2) Troponin T NT-Pro-B Natriuret Pep Total Protein Albumin Triglycerides HDL Cholesterol Folate Urine WBC (Auto) Urine Creatinine Urine Total Protein Vancomycin Trough 06/14/19 06/14/19 06/14/19 05:26 12:31 18:32 WBC RBC Hgb Hct MCV MCH MCHC RDW Plt Count Lymph % (Auto) [place] % (Auto) Eos % (Auto) Lymph # [place] # Eos # Seg Neutrophils % Seg Neuts % (Manual) Lymphocytes % (Manual) Monocytes % (Manual) Eosinophils % (Manual) Nucleated RBC % Seg Neutrophils # Seg Neutrophils # Man Lymphocytes # (Manual) Monocytes # (Manual) Eosinophils # (Manual) PT INR APTT Fibrinogen POC ABG pH ABG pH POC ABG pCO2 POC ABG pO2 ABG pO2 ABG HCO3 ABG O2 Saturation ABG Base Excess ABG Hemoglobin Oxyhemoglobin Sodium Potassium Chloride Carbon Dioxide BUN Creatinine Glucose POC Glucose 239 H 116 H 247 H Uric Acid Calcium Phosphorus Magnesium Iron TIBC AST ALT Total Creatine Kinase CK-MB (CK-2) Troponin T NT-Pro-B Natriuret Pep Total Protein Albumin Triglycerides HDL Cholesterol Folate Urine WBC (Auto) Urine Creatinine Urine Total Protein Vancomycin Trough 06/14/19 06/15/19 06/15/19 23:57 04:05 05:55 WBC RBC Hgb Hct MCV MCH MCHC RDW Plt Count Lymph % (Auto) [place] % (Auto) Eos % (Auto) Lymph # [place] # Eos # Seg Neutrophils % Seg Neuts % (Manual) Lymphocytes % (Manual) Monocytes % (Manual) Eosinophils % (Manual) Nucleated RBC % Seg Neutrophils # Seg Neutrophils # Man Lymphocytes # (Manual) Monocytes # (Manual) Eosinophils # (Manual) PT INR APTT Fibrinogen POC ABG pH ABG pH POC ABG pCO2 POC ABG pO2 ABG pO2 ABG HCO3 ABG O2 Saturation ABG Base Excess ABG Hemoglobin Oxyhemoglobin Sodium Potassium Chloride Carbon Dioxide BUN 46 H Creatinine 0.7 L Glucose 265 H POC Glucose 206 H 265 H Uric Acid Calcium Phosphorus Magnesium Iron TIBC AST ALT Total Creatine Kinase CK-MB (CK-2) Troponin T NT-Pro-B Natriuret Pep Total Protein Albumin Triglycerides HDL Cholesterol Folate Urine WBC (Auto) Urine Creatinine Urine Total Protein Vancomycin Trough 06/15/19 06/15/19 06/15/19 12:08 18:45 23:41 WBC RBC Hgb Hct MCV MCH MCHC RDW Plt Count Lymph % (Auto) [place] % (Auto) Eos % (Auto) Lymph # [place] # Eos # Seg Neutrophils % Seg Neuts % (Manual) Lymphocytes % (Manual) Monocytes % (Manual) Eosinophils % (Manual) Nucleated RBC % Seg Neutrophils # Seg Neutrophils # Man Lymphocytes # (Manual) Monocytes # (Manual) Eosinophils # (Manual) PT INR APTT Fibrinogen POC ABG pH ABG pH POC ABG pCO2 POC ABG pO2 ABG pO2 ABG HCO3 ABG O2 Saturation ABG Base Excess ABG Hemoglobin Oxyhemoglobin Sodium Potassium Chloride Carbon Dioxide BUN Creatinine Glucose POC Glucose 224 H 177 H 193 H Uric Acid Calcium Phosphorus Magnesium Iron TIBC AST ALT Total Creatine Kinase CK-MB (CK-2) Troponin T NT-Pro-B Natriuret Pep Total Protein Albumin Triglycerides HDL Cholesterol Folate Urine WBC (Auto) Urine Creatinine Urine Total Protein Vancomycin Trough 06/16/19 06/16/19 06/16/19 05:00 05:00 05:40 WBC 11.9 H RBC 3.24 L Hgb 9.0 L Hct 29.0 L MCV MCH MCHC 31 L RDW 18.6 H Plt Count 111 L Lymph % (Auto) [place] % (Auto) Eos % (Auto) Lymph # [place] # Eos # Seg Neutrophils % Seg Neuts % (Manual) 92.0 H Lymphocytes % (Manual) 2.0 L Monocytes % (Manual) Eosinophils % (Manual) Nucleated RBC % Seg Neutrophils # Seg Neutrophils # Man 10.9 H Lymphocytes # (Manual) 0.2 L Monocytes # (Manual) Eosinophils # (Manual) PT INR APTT Fibrinogen POC ABG pH ABG pH POC ABG pCO2 POC ABG pO2 ABG pO2 ABG HCO3 ABG O2 Saturation ABG Base Excess ABG Hemoglobin Oxyhemoglobin Sodium Potassium Chloride Carbon Dioxide 33 H BUN 49 H Creatinine 0.7 L Glucose 264 H POC Glucose 247 H Uric Acid Calcium Phosphorus Magnesium Iron TIBC AST ALT Total Creatine Kinase CK-MB (CK-2) Troponin T NT-Pro-B Natriuret Pep Total Protein Albumin Triglycerides HDL Cholesterol Folate Urine WBC (Auto) Urine Creatinine Urine Total Protein Vancomycin Trough 06/16/19 06/16/19 06/16/19 12:03 17:11 18:11 WBC RBC Hgb Hct MCV MCH MCHC RDW Plt Count Lymph % (Auto) [place] % (Auto) Eos % (Auto) Lymph # [place] # Eos # Seg Neutrophils % Seg Neuts % (Manual) Lymphocytes % (Manual) Monocytes % (Manual) Eosinophils % (Manual) Nucleated RBC % Seg Neutrophils # Seg Neutrophils # Man Lymphocytes # (Manual) Monocytes # (Manual) Eosinophils # (Manual) PT INR APTT Fibrinogen POC ABG pH ABG pH 7.289 L POC ABG pCO2 POC ABG pO2 ABG pO2 399.3 H ABG HCO3 30.1 H ABG O2 Saturation 99.6 H ABG Base Excess ABG Hemoglobin 8.6 L Oxyhemoglobin Sodium Potassium Chloride Carbon Dioxide BUN Creatinine Glucose POC Glucose 252 H 254 H Uric Acid Calcium Phosphorus Magnesium Iron TIBC AST ALT Total Creatine Kinase CK-MB (CK-2) Troponin T NT-Pro-B Natriuret Pep Total Protein Albumin Triglycerides HDL Cholesterol Folate Urine WBC (Auto) Urine Creatinine Urine Total Protein Vancomycin Trough 06/16/19 06/17/19 06/17/19 23:16 05:30 05:53 WBC RBC Hgb Hct MCV MCH MCHC RDW Plt Count Lymph % (Auto) [place] % (Auto) Eos % (Auto) Lymph # [place] # Eos # Seg Neutrophils % Seg Neuts % (Manual) Lymphocytes % (Manual) Monocytes % (Manual) Eosinophils % (Manual) Nucleated RBC % Seg Neutrophils # Seg Neutrophils # Man Lymphocytes # (Manual) Monocytes # (Manual) Eosinophils # (Manual) PT INR APTT Fibrinogen POC ABG pH ABG pH POC ABG pCO2 POC ABG pO2 ABG pO2 ABG HCO3 ABG O2 Saturation ABG Base Excess ABG Hemoglobin Oxyhemoglobin Sodium 147 H Potassium Chloride Carbon Dioxide 32 H BUN 60 H Creatinine Glucose 205 H POC Glucose 238 H 211 H Uric Acid Calcium Phosphorus Magnesium Iron TIBC AST ALT Total Creatine Kinase CK-MB (CK-2) Troponin T NT-Pro-B Natriuret Pep Total Protein Albumin Triglycerides HDL Cholesterol Folate Urine WBC (Auto) Urine Creatinine Urine Total Protein Vancomycin Trough 06/17/19 06/17/19 06/17/19 09:50 12:27 12:45 WBC RBC 2.79 L Hgb 8.2 L Hct 24.6 L MCV MCH MCHC RDW 18.5 H Plt Count 95 L Lymph % (Auto) [place] % (Auto) Eos % (Auto) Lymph # [place] # Eos # Seg Neutrophils % Seg Neuts % (Manual) Lymphocytes % (Manual) Monocytes % (Manual) Eosinophils % (Manual) Nucleated RBC % Seg Neutrophils # Seg Neutrophils # Man Lymphocytes # (Manual) Monocytes # (Manual) Eosinophils # (Manual) PT INR APTT Fibrinogen 194 L POC ABG pH ABG pH POC ABG pCO2 POC ABG pO2 ABG pO2 ABG HCO3 ABG O2 Saturation ABG Base Excess ABG Hemoglobin Oxyhemoglobin Sodium Potassium Chloride Carbon Dioxide BUN Creatinine Glucose POC Glucose 224 H Uric Acid Calcium Phosphorus Magnesium Iron TIBC AST ALT Total Creatine Kinase CK-MB (CK-2) Troponin T NT-Pro-B Natriuret Pep Total Protein Albumin Triglycerides HDL Cholesterol Folate Urine WBC (Auto) Urine Creatinine Urine Total Protein Vancomycin Trough 06/17/19 06/17/19 06/17/19 18:41 22:00 23:23 WBC RBC Hgb Hct MCV MCH MCHC RDW Plt Count Lymph % (Auto) [place] % (Auto) Eos % (Auto) Lymph # [place] # Eos # Seg Neutrophils % Seg Neuts % (Manual) Lymphocytes % (Manual) Monocytes % (Manual) Eosinophils % (Manual) Nucleated RBC % Seg Neutrophils # Seg Neutrophils # Man Lymphocytes # (Manual) Monocytes # (Manual) Eosinophils # (Manual) PT INR APTT Fibrinogen POC ABG pH ABG pH POC ABG pCO2 POC ABG pO2 ABG pO2 ABG HCO3 ABG O2 Saturation ABG Base Excess ABG Hemoglobin Oxyhemoglobin Sodium Potassium Chloride Carbon Dioxide BUN Creatinine Glucose POC Glucose 198 H 166 H 171 H Uric Acid Calcium Phosphorus Magnesium Iron TIBC AST ALT Total Creatine Kinase CK-MB (CK-2) Troponin T NT-Pro-B Natriuret Pep Total Protein Albumin Triglycerides HDL Cholesterol Folate Urine WBC (Auto) Urine Creatinine Urine Total Protein Vancomycin Trough 06/17/19 06/18/19 06/18/19 Unknown 03:50 04:25 WBC RBC Hgb Hct MCV MCH MCHC RDW Plt Count Lymph % (Auto) [place] % (Auto) Eos % (Auto) Lymph # [place] # Eos # Seg Neutrophils % Seg Neuts % (Manual) Lymphocytes % (Manual) Monocytes % (Manual) Eosinophils % (Manual) Nucleated RBC % Seg Neutrophils # Seg Neutrophils # Man Lymphocytes # (Manual) Monocytes # (Manual) Eosinophils # (Manual) PT INR APTT Fibrinogen POC ABG pH ABG pH 7.564 H 7.499 H POC ABG pCO2 POC ABG pO2 ABG pO2 238.6 H 130.8 H ABG HCO3 33.6 H 32.5 H ABG O2 Saturation 99.4 H ABG Base Excess 10.6 H 8.5 H ABG Hemoglobin 7.9 L 8.8 L Oxyhemoglobin Sodium 151 H Potassium 3.4 L Chloride Carbon Dioxide BUN 66 H Creatinine Glucose 189 H POC Glucose Uric Acid Calcium Phosphorus Magnesium Iron TIBC AST ALT Total Creatine Kinase CK-MB (CK-2) Troponin T NT-Pro-B Natriuret Pep Total Protein Albumin Triglycerides HDL Cholesterol Folate Urine WBC (Auto) Urine Creatinine Urine Total Protein Vancomycin Trough 06/18/19 06/18/19 06/18/19 05:25 05:27 11:50 WBC RBC 2.61 L Hgb 7.4 L Hct 22.9 L MCV MCH MCHC RDW 19.9 H Plt Count 81 L Lymph % (Auto) 12.9 L [place] % (Auto) 7.7 H Eos % (Auto) Lymph # 1.1 L [place] # Eos # Seg Neutrophils % 77.4 H Seg Neuts % (Manual) Lymphocytes % (Manual) Monocytes % (Manual) Eosinophils % (Manual) Nucleated RBC % Seg Neutrophils # Seg Neutrophils # Man Lymphocytes # (Manual) Monocytes # (Manual) Eosinophils # (Manual) PT INR APTT Fibrinogen POC ABG pH ABG pH POC ABG pCO2 POC ABG pO2 ABG pO2 ABG HCO3 ABG O2 Saturation ABG Base Excess ABG Hemoglobin Oxyhemoglobin Sodium Potassium Chloride Carbon Dioxide BUN Creatinine Glucose POC Glucose 186 H 263 H Uric Acid Calcium Phosphorus Magnesium Iron TIBC AST ALT Total Creatine Kinase CK-MB (CK-2) Troponin T NT-Pro-B Natriuret Pep Total Protein Albumin Triglycerides HDL Cholesterol Folate Urine WBC (Auto) Urine Creatinine Urine Total Protein Vancomycin Trough 06/18/19 06/18/19 06/18/19 18:35 21:31 23:21 WBC RBC Hgb Hct MCV MCH MCHC RDW Plt Count Lymph % (Auto) [place] % (Auto) Eos % (Auto) Lymph # [place] # Eos # Seg Neutrophils % Seg Neuts % (Manual) Lymphocytes % (Manual) Monocytes % (Manual) Eosinophils % (Manual) Nucleated RBC % Seg Neutrophils # Seg Neutrophils # Man Lymphocytes # (Manual) Monocytes # (Manual) Eosinophils # (Manual) PT INR APTT Fibrinogen POC ABG pH ABG pH POC ABG pCO2 POC ABG pO2 ABG pO2 ABG HCO3 ABG O2 Saturation ABG Base Excess ABG Hemoglobin Oxyhemoglobin Sodium Potassium Chloride Carbon Dioxide BUN Creatinine Glucose POC Glucose 154 H 186 H 202 H Uric Acid Calcium Phosphorus Magnesium Iron TIBC AST ALT Total Creatine Kinase CK-MB (CK-2) Troponin T NT-Pro-B Natriuret Pep Total Protein Albumin Triglycerides HDL Cholesterol Folate Urine WBC (Auto) Urine Creatinine Urine Total Protein Vancomycin Trough 06/19/19 06/19/19 06/19/19 03:18 04:30 04:30 WBC RBC 2.65 L Hgb 7.5 L Hct 23.1 L MCV MCH MCHC RDW 19.4 H Plt Count 74 L Lymph % (Auto) 8.8 L [place] % (Auto) 9.4 H Eos % (Auto) 4.7 H Lymph # 0.6 L [place] # Eos # Seg Neutrophils % 76.6 H Seg Neuts % (Manual) Lymphocytes % (Manual) Monocytes % (Manual) Eosinophils % (Manual) Nucleated RBC % Seg Neutrophils # Seg Neutrophils # Man Lymphocytes # (Manual) Monocytes # (Manual) Eosinophils # (Manual) PT INR APTT Fibrinogen POC ABG pH ABG pH 7.452 H POC ABG pCO2 POC ABG pO2 ABG pO2 105.5 H ABG HCO3 32.3 H ABG O2 Saturation ABG Base Excess 7.6 H ABG Hemoglobin 6.9 L Oxyhemoglobin Sodium 150 H Potassium 3.3 L Chloride Carbon Dioxide 31 H BUN 56 H Creatinine Glucose 197 H POC Glucose Uric Acid Calcium Phosphorus Magnesium Iron TIBC AST ALT Total Creatine Kinase CK-MB (CK-2) Troponin T NT-Pro-B Natriuret Pep Total Protein Albumin Triglycerides 210 H HDL Cholesterol Folate Urine WBC (Auto) Urine Creatinine Urine Total Protein Vancomycin Trough 06/19/19 06/19/19 06/19/19 05:24 12:18 18:55 WBC RBC Hgb Hct MCV MCH MCHC RDW Plt Count Lymph % (Auto) [place] % (Auto) Eos % (Auto) Lymph # [place] # Eos # Seg Neutrophils % Seg Neuts % (Manual) Lymphocytes % (Manual) Monocytes % (Manual) Eosinophils % (Manual) Nucleated RBC % Seg Neutrophils # Seg Neutrophils # Man Lymphocytes # (Manual) Monocytes # (Manual) Eosinophils # (Manual) PT INR APTT Fibrinogen POC ABG pH ABG pH POC ABG pCO2 POC ABG pO2 ABG pO2 ABG HCO3 ABG O2 Saturation ABG Base Excess ABG Hemoglobin Oxyhemoglobin Sodium Potassium Chloride Carbon Dioxide BUN Creatinine Glucose POC Glucose 176 H 260 H 192 H Uric Acid Calcium Phosphorus Magnesium Iron TIBC AST ALT Total Creatine Kinase CK-MB (CK-2) Troponin T NT-Pro-B Natriuret Pep Total Protein Albumin Triglycerides HDL Cholesterol Folate Urine WBC (Auto) Urine Creatinine Urine Total Protein Vancomycin Trough 06/19/19 06/19/19 06/20/19 22:57 23:46 04:40 WBC RBC 2.79 L Hgb 7.9 L Hct 24.3 L MCV MCH MCHC RDW 19.6 H Plt Count 92 L Lymph % (Auto) 9.2 L [place] % (Auto) 12.0 H Eos % (Auto) 5.2 H Lymph # 0.9 L [place] # 1.2 H Eos # 0.5 H Seg Neutrophils % 73.3 H Seg Neuts % (Manual) Lymphocytes % (Manual) Monocytes % (Manual) Eosinophils % (Manual) Nucleated RBC % Seg Neutrophils # Seg Neutrophils # Man Lymphocytes # (Manual) Monocytes # (Manual) Eosinophils # (Manual) PT INR APTT Fibrinogen POC ABG pH ABG pH POC ABG pCO2 POC ABG pO2 ABG pO2 ABG HCO3 ABG O2 Saturation ABG Base Excess ABG Hemoglobin Oxyhemoglobin Sodium Potassium Chloride Carbon Dioxide BUN Creatinine Glucose POC Glucose 145 H 216 H Uric Acid Calcium Phosphorus Magnesium Iron TIBC AST ALT Total Creatine Kinase CK-MB (CK-2) Troponin T NT-Pro-B Natriuret Pep Total Protein Albumin Triglycerides HDL Cholesterol Folate Urine WBC (Auto) Urine Creatinine Urine Total Protein Vancomycin Trough 06/20/19 06/20/19 06/20/19 04:40 05:40 05:54 WBC RBC Hgb Hct MCV MCH MCHC RDW Plt Count Lymph % (Auto) [place] % (Auto) Eos % (Auto) Lymph # [place] # Eos # Seg Neutrophils % Seg Neuts % (Manual) Lymphocytes % (Manual) Monocytes % (Manual) Eosinophils % (Manual) Nucleated RBC % Seg Neutrophils # Seg Neutrophils # Man Lymphocytes # (Manual) Monocytes # (Manual) Eosinophils # (Manual) PT INR APTT Fibrinogen POC ABG pH ABG pH 7.455 H POC ABG pCO2 POC ABG pO2 ABG pO2 60.9 L ABG HCO3 30.3 H ABG O2 Saturation 92.3 L ABG Base Excess 5.8 H ABG Hemoglobin 8.2 L Oxyhemoglobin 90.1 L Sodium Potassium 3.5 L Chloride Carbon Dioxide BUN 59 H Creatinine Glucose 200 H POC Glucose 190 H Uric Acid Calcium Phosphorus Magnesium 1.60 L Iron TIBC AST ALT Total Creatine Kinase CK-MB (CK-2) Troponin T NT-Pro-B Natriuret Pep Total Protein Albumin Triglycerides HDL Cholesterol Folate Urine WBC (Auto) Urine Creatinine Urine Total Protein Vancomycin Trough 06/20/19 06/20/19 06/20/19 09:12 09:12 12:24 WBC RBC Hgb Hct MCV MCH MCHC RDW Plt Count Lymph % (Auto) [place] % (Auto) Eos % (Auto) Lymph # [place] # Eos # Seg Neutrophils % Seg Neuts % (Manual) Lymphocytes % (Manual) Monocytes % (Manual) Eosinophils % (Manual) Nucleated RBC % Seg Neutrophils # Seg Neutrophils # Man Lymphocytes # (Manual) Monocytes # (Manual) Eosinophils # (Manual) PT INR APTT Fibrinogen POC ABG pH ABG pH POC ABG pCO2 POC ABG pO2 ABG pO2 ABG HCO3 ABG O2 Saturation ABG Base Excess ABG Hemoglobin Oxyhemoglobin Sodium Potassium Chloride Carbon Dioxide BUN Creatinine Glucose POC Glucose 225 H Uric Acid Calcium Phosphorus Magnesium Iron 45 L TIBC 110 L AST ALT Total Creatine Kinase CK-MB (CK-2) Troponin T NT-Pro-B Natriuret Pep Total Protein Albumin Triglycerides HDL Cholesterol Folate 7.01 L Urine WBC (Auto) Urine Creatinine Urine Total Protein Vancomycin Trough 06/20/19 06/20/19 06/20/19 17:42 21:55 23:24 WBC RBC Hgb Hct MCV MCH MCHC RDW Plt Count Lymph % (Auto) [place] % (Auto) Eos % (Auto) Lymph # [place] # Eos # Seg Neutrophils % Seg Neuts % (Manual) Lymphocytes % (Manual) Monocytes % (Manual) Eosinophils % (Manual) Nucleated RBC % Seg Neutrophils # Seg Neutrophils # Man Lymphocytes # (Manual) Monocytes # (Manual) Eosinophils # (Manual) PT INR APTT Fibrinogen POC ABG pH ABG pH POC ABG pCO2 POC ABG pO2 ABG pO2 ABG HCO3 ABG O2 Saturation ABG Base Excess ABG Hemoglobin Oxyhemoglobin Sodium Potassium Chloride Carbon Dioxide BUN Creatinine Glucose POC Glucose 255 H 218 H 215 H Uric Acid Calcium Phosphorus Magnesium Iron TIBC AST ALT Total Creatine Kinase CK-MB (CK-2) Troponin T NT-Pro-B Natriuret Pep Total Protein Albumin Triglycerides HDL Cholesterol Folate Urine WBC (Auto) Urine Creatinine Urine Total Protein Vancomycin Trough 06/21/19 06/21/19 06/21/19 03:32 03:40 05:20 WBC 12.8 H RBC 3.03 L Hgb 8.5 L Hct 26.2 L MCV MCH MCHC RDW 19.4 H Plt Count 131 L Lymph % (Auto) [place] % (Auto) Eos % (Auto) Lymph # [place] # Eos # Seg Neutrophils % Seg Neuts % (Manual) 78.0 H Lymphocytes % (Manual) 5.0 L Monocytes % (Manual) 11.0 H Eosinophils % (Manual) Nucleated RBC % Seg Neutrophils # Seg Neutrophils # Man 10.0 H Lymphocytes # (Manual) 0.6 L Monocytes # (Manual) 1.4 H Eosinophils # (Manual) 0.5 H PT INR APTT Fibrinogen POC ABG pH ABG pH 7.476 H POC ABG pCO2 POC ABG pO2 ABG pO2 162.0 H ABG HCO3 26.8 H ABG O2 Saturation 99.1 H ABG Base Excess 3.1 H ABG Hemoglobin 8.6 L Oxyhemoglobin Sodium Potassium Chloride Carbon Dioxide BUN Creatinine Glucose POC Glucose 202 H Uric Acid Calcium Phosphorus Magnesium Iron TIBC AST ALT Total Creatine Kinase CK-MB (CK-2) Troponin T NT-Pro-B Natriuret Pep Total Protein Albumin Triglycerides HDL Cholesterol Folate Urine WBC (Auto) Urine Creatinine Urine Total Protein Vancomycin Trough 06/21/19 06/21/19 06/21/19 05:20 12:30 18:18 WBC RBC Hgb Hct MCV MCH MCHC RDW Plt Count Lymph % (Auto) [place] % (Auto) Eos % (Auto) Lymph # [place] # Eos # Seg Neutrophils % Seg Neuts % (Manual) Lymphocytes % (Manual) Monocytes % (Manual) Eosinophils % (Manual) Nucleated RBC % Seg Neutrophils # Seg Neutrophils # Man Lymphocytes # (Manual) Monocytes # (Manual) Eosinophils # (Manual) PT INR APTT Fibrinogen POC ABG pH ABG pH POC ABG pCO2 POC ABG pO2 ABG pO2 ABG HCO3 ABG O2 Saturation ABG Base Excess ABG Hemoglobin Oxyhemoglobin Sodium Potassium Chloride 97.7 L Carbon Dioxide BUN 69 H Creatinine Glucose 239 H POC Glucose 176 H 187 H Uric Acid Calcium Phosphorus Magnesium 2.40 H Iron TIBC AST ALT Total Creatine Kinase CK-MB (CK-2) Troponin T NT-Pro-B Natriuret Pep Total Protein Albumin Triglycerides HDL Cholesterol Folate Urine WBC (Auto) Urine Creatinine Urine Total Protein Vancomycin Trough 06/22/19 06/22/19 06/22/19 04:11 05:30 05:30 WBC 12.6 H RBC 3.10 L Hgb 8.7 L Hct 27.0 L MCV MCH MCHC RDW 19.8 H Plt Count Lymph % (Auto) [place] % (Auto) Eos % (Auto) Lymph # [place] # Eos # Seg Neutrophils % Seg Neuts % (Manual) Lymphocytes % (Manual) Monocytes % (Manual) 10.0 H Eosinophils % (Manual) Nucleated RBC % Seg Neutrophils # Seg Neutrophils # Man 8.7 H Lymphocytes # (Manual) Monocytes # (Manual) 1.3 H Eosinophils # (Manual) PT INR APTT Fibrinogen POC ABG pH ABG pH POC ABG pCO2 POC ABG pO2 ABG pO2 ABG HCO3 27.7 H ABG O2 Saturation ABG Base Excess 3.3 H ABG Hemoglobin 8.5 L Oxyhemoglobin 94.9 L Sodium Potassium Chloride Carbon Dioxide BUN 66 H Creatinine Glucose 103 H POC Glucose Uric Acid Calcium Phosphorus Magnesium Iron TIBC AST ALT Total Creatine Kinase CK-MB (CK-2) Troponin T NT-Pro-B Natriuret Pep Total Protein Albumin Triglycerides HDL Cholesterol Folate Urine WBC (Auto) Urine Creatinine Urine Total Protein Vancomycin Trough 06/22/19 06/22/19 06/23/19 17:43 23:25 02:00 WBC RBC Hgb Hct MCV MCH MCHC RDW Plt Count Lymph % (Auto) [place] % (Auto) Eos % (Auto) Lymph # [place] # Eos # Seg Neutrophils % Seg Neuts % (Manual) Lymphocytes % (Manual) Monocytes % (Manual) Eosinophils % (Manual) Nucleated RBC % Seg Neutrophils # Seg Neutrophils # Man Lymphocytes # (Manual) Monocytes # (Manual) Eosinophils # (Manual) PT INR APTT Fibrinogen POC ABG pH ABG pH 7.469 H POC ABG pCO2 POC ABG pO2 ABG pO2 58.7 L ABG HCO3 28.0 H ABG O2 Saturation 94.6 L ABG Base Excess 4.0 H ABG Hemoglobin 7.1 L Oxyhemoglobin 92.2 L Sodium Potassium Chloride Carbon Dioxide BUN Creatinine Glucose POC Glucose 143 H 106 H Uric Acid Calcium Phosphorus Magnesium Iron TIBC AST ALT Total Creatine Kinase CK-MB (CK-2) Troponin T NT-Pro-B Natriuret Pep Total Protein Albumin Triglycerides HDL Cholesterol Folate Urine WBC (Auto) Urine Creatinine Urine Total Protein Vancomycin Trough 06/23/19 06/23/19 06/23/19 05:24 05:24 11:43 WBC 12.6 H RBC 2.96 L Hgb 8.3 L Hct 25.5 L MCV MCH MCHC RDW 20.2 H Plt Count Lymph % (Auto) [place] % (Auto) Eos % (Auto) Lymph # [place] # Eos # Seg Neutrophils % Seg Neuts % (Manual) Lymphocytes % (Manual) 12.0 L Monocytes % (Manual) 11.0 H Eosinophils % (Manual) 6.0 H Nucleated RBC % Seg Neutrophils # Seg Neutrophils # Man 8.8 H Lymphocytes # (Manual) Monocytes # (Manual) 1.4 H Eosinophils # (Manual) 0.8 H PT INR APTT Fibrinogen POC ABG pH ABG pH POC ABG pCO2 POC ABG pO2 ABG pO2 ABG HCO3 ABG O2 Saturation ABG Base Excess ABG Hemoglobin Oxyhemoglobin Sodium 146 H Potassium 3.5 L Chloride Carbon Dioxide BUN 48 H Creatinine Glucose 123 H POC Glucose 120 H Uric Acid Calcium Phosphorus Magnesium Iron TIBC AST ALT Total Creatine Kinase CK-MB (CK-2) Troponin T NT-Pro-B Natriuret Pep Total Protein Albumin Triglycerides HDL Cholesterol Folate Urine WBC (Auto) Urine Creatinine Urine Total Protein Vancomycin Trough 06/23/19 06/24/19 06/24/19 17:39 06:53 06:53 WBC 12.3 H RBC 2.87 L Hgb 8.0 L Hct 24.9 L MCV MCH MCHC RDW 20.5 H Plt Count Lymph % (Auto) [place] % (Auto) 8.8 H Eos % (Auto) 4.4 H Lymph # [place] # 1.1 H Eos # 0.5 H Seg Neutrophils % Seg Neuts % (Manual) Lymphocytes % (Manual) Monocytes % (Manual) Eosinophils % (Manual) Nucleated RBC % Seg Neutrophils # Seg Neutrophils # Man Lymphocytes # (Manual) Monocytes # (Manual) Eosinophils # (Manual) PT INR APTT Fibrinogen POC ABG pH ABG pH POC ABG pCO2 POC ABG pO2 ABG pO2 ABG HCO3 ABG O2 Saturation ABG Base Excess ABG Hemoglobin Oxyhemoglobin Sodium Potassium Chloride 107.1 H Carbon Dioxide 21 L BUN 29 H Creatinine 0.6 L Glucose 117 H POC Glucose 111 H Uric Acid Calcium Phosphorus Magnesium 1.60 L Iron TIBC AST ALT Total Creatine Kinase CK-MB (CK-2) Troponin T NT-Pro-B Natriuret Pep Total Protein Albumin Triglycerides HDL Cholesterol Folate Urine WBC (Auto) Urine Creatinine Urine Total Protein Vancomycin Trough 06/24/19 06/24/19 06/24/19 12:12 18:01 23:20 WBC RBC Hgb Hct MCV MCH MCHC RDW Plt Count Lymph % (Auto) [place] % (Auto) Eos % (Auto) Lymph # [place] # Eos # Seg Neutrophils % Seg Neuts % (Manual) Lymphocytes % (Manual) Monocytes % (Manual) Eosinophils % (Manual) Nucleated RBC % Seg Neutrophils # Seg Neutrophils # Man Lymphocytes # (Manual) Monocytes # (Manual) Eosinophils # (Manual) PT INR APTT Fibrinogen POC ABG pH ABG pH POC ABG pCO2 POC ABG pO2 ABG pO2 ABG HCO3 ABG O2 Saturation ABG Base Excess ABG Hemoglobin Oxyhemoglobin Sodium Potassium Chloride Carbon Dioxide BUN Creatinine Glucose POC Glucose 158 H 133 H 106 H Uric Acid Calcium Phosphorus Magnesium Iron TIBC AST ALT Total Creatine Kinase CK-MB (CK-2) Troponin T NT-Pro-B Natriuret Pep Total Protein Albumin Triglycerides HDL Cholesterol Folate Urine WBC (Auto) Urine Creatinine Urine Total Protein Vancomycin Trough 06/25/19 06/25/19 06/25/19 04:46 04:46 05:36 WBC 12.3 H RBC 2.98 L Hgb 8.3 L Hct 26.4 L MCV MCH MCHC 31 L RDW 20.1 H Plt Count Lymph % (Auto) [place] % (Auto) Eos % (Auto) Lymph # [place] # Eos # Seg Neutrophils % Seg Neuts % (Manual) Lymphocytes % (Manual) Monocytes % (Manual) 10.0 H Eosinophils % (Manual) Nucleated RBC % Seg Neutrophils # Seg Neutrophils # Man 8.1 H Lymphocytes # (Manual) Monocytes # (Manual) 1.2 H Eosinophils # (Manual) PT INR APTT Fibrinogen POC ABG pH ABG pH POC ABG pCO2 POC ABG pO2 ABG pO2 ABG HCO3 ABG O2 Saturation ABG Base Excess ABG Hemoglobin Oxyhemoglobin Sodium 148 H Potassium Chloride 108.0 H Carbon Dioxide BUN 21 H Creatinine 0.7 L Glucose 120 H POC Glucose 121 H Uric Acid Calcium Phosphorus Magnesium Iron TIBC AST ALT Total Creatine Kinase CK-MB (CK-2) Troponin T NT-Pro-B Natriuret Pep Total Protein Albumin Triglycerides HDL Cholesterol Folate Urine WBC (Auto) Urine Creatinine Urine Total Protein Vancomycin Trough 06/25/19 06/25/19 06/26/19 14:02 18:30 00:01 WBC RBC Hgb Hct MCV MCH MCHC RDW Plt Count Lymph % (Auto) [place] % (Auto) Eos % (Auto) Lymph # [place] # Eos # Seg Neutrophils % Seg Neuts % (Manual) Lymphocytes % (Manual) Monocytes % (Manual) Eosinophils % (Manual) Nucleated RBC % Seg Neutrophils # Seg Neutrophils # Man Lymphocytes # (Manual) Monocytes # (Manual) Eosinophils # (Manual) PT INR APTT Fibrinogen POC ABG pH ABG pH POC ABG pCO2 POC ABG pO2 ABG pO2 ABG HCO3 ABG O2 Saturation ABG Base Excess ABG Hemoglobin Oxyhemoglobin Sodium Potassium Chloride Carbon Dioxide BUN Creatinine Glucose POC Glucose 125 H 145 H 142 H Uric Acid Calcium Phosphorus Magnesium Iron TIBC AST ALT Total Creatine Kinase CK-MB (CK-2) Troponin T NT-Pro-B Natriuret Pep Total Protein Albumin Triglycerides HDL Cholesterol Folate Urine WBC (Auto) Urine Creatinine Urine Total Protein Vancomycin Trough 06/26/19 06/26/19 06/26/19 04:43 04:43 05:41 WBC RBC 3.02 L Hgb 8.6 L Hct 27.0 L MCV MCH MCHC RDW 20.4 H Plt Count Lymph % (Auto) [place] % (Auto) Eos % (Auto) Lymph # [place] # Eos # Seg Neutrophils % Seg Neuts % (Manual) Lymphocytes % (Manual) Monocytes % (Manual) 9.0 H Eosinophils % (Manual) Nucleated RBC % Seg Neutrophils # Seg Neutrophils # Man Lymphocytes # (Manual) Monocytes # (Manual) 1.0 H Eosinophils # (Manual) PT INR APTT Fibrinogen POC ABG pH ABG pH POC ABG pCO2 POC ABG pO2 ABG pO2 ABG HCO3 ABG O2 Saturation ABG Base Excess ABG Hemoglobin Oxyhemoglobin Sodium Potassium Chloride Carbon Dioxide BUN Creatinine 0.7 L Glucose 111 H POC Glucose 110 H Uric Acid Calcium Phosphorus Magnesium 1.60 L Iron TIBC AST ALT Total Creatine Kinase CK-MB (CK-2) Troponin T NT-Pro-B Natriuret Pep Total Protein Albumin Triglycerides HDL Cholesterol Folate Urine WBC (Auto) Urine Creatinine Urine Total Protein Vancomycin Trough 02/01/20 02/01/20 02/02/20 11:55 18:07 12:10 WBC RBC Hgb Hct MCV MCH MCHC RDW Plt Count Lymph % (Auto) [place] % (Auto) Eos % (Auto) Lymph # [place] # Eos # Seg Neutrophils % Seg Neuts % (Manual) Lymphocytes % (Manual) Monocytes % (Manual) Eosinophils % (Manual) Nucleated RBC % Seg Neutrophils # Seg Neutrophils # Man Lymphocytes # (Manual) Monocytes # (Manual) Eosinophils # (Manual) PT INR APTT Fibrinogen POC ABG pH ABG pH POC ABG pCO2 POC ABG pO2 ABG pO2 ABG HCO3 ABG O2 Saturation ABG Base Excess ABG Hemoglobin Oxyhemoglobin Sodium Potassium Chloride Carbon Dioxide BUN Creatinine Glucose POC Glucose 159 H 107 H 121 H Uric Acid Calcium Phosphorus Magnesium Iron TIBC AST ALT Total Creatine Kinase CK-MB (CK-2) Troponin T NT-Pro-B Natriuret Pep Total Protein Albumin Triglycerides HDL Cholesterol Folate Urine WBC (Auto) Urine Creatinine Urine Total Protein Vancomycin Trough 06/28/19 06/29/19 06/29/19 05:54 13:10 17:58 WBC RBC Hgb Hct MCV MCH MCHC RDW Plt Count Lymph % (Auto) [place] % (Auto) Eos % (Auto) Lymph # [place] # Eos # Seg Neutrophils % Seg Neuts % (Manual) Lymphocytes % (Manual) Monocytes % (Manual) Eosinophils % (Manual) Nucleated RBC % Seg Neutrophils # Seg Neutrophils # Man Lymphocytes # (Manual) Monocytes # (Manual) Eosinophils # (Manual) PT INR APTT Fibrinogen POC ABG pH ABG pH POC ABG pCO2 POC ABG pO2 ABG pO2 ABG HCO3 ABG O2 Saturation ABG Base Excess ABG Hemoglobin Oxyhemoglobin Sodium Potassium Chloride Carbon Dioxide BUN Creatinine Glucose POC Glucose 107 H 115 H 108 H Uric Acid Calcium Phosphorus Magnesium Iron TIBC AST ALT Total Creatine Kinase CK-MB (CK-2) Troponin T NT-Pro-B Natriuret Pep Total Protein Albumin Triglycerides HDL Cholesterol Folate Urine WBC (Auto) Urine Creatinine Urine Total Protein Vancomycin Trough 06/30/19 06/30/19 07/01/19 12:00 18:13 05:49 WBC RBC Hgb Hct MCV MCH MCHC RDW Plt Count Lymph % (Auto) [place] % (Auto) Eos % (Auto) Lymph # [place] # Eos # Seg Neutrophils % Seg Neuts % (Manual) Lymphocytes % (Manual) Monocytes % (Manual) Eosinophils % (Manual) Nucleated RBC % Seg Neutrophils # Seg Neutrophils # Man Lymphocytes # (Manual) Monocytes # (Manual) Eosinophils # (Manual) PT INR APTT Fibrinogen POC ABG pH ABG pH POC ABG pCO2 POC ABG pO2 ABG pO2 ABG HCO3 ABG O2 Saturation ABG Base Excess ABG Hemoglobin Oxyhemoglobin Sodium Potassium Chloride Carbon Dioxide BUN Creatinine Glucose POC Glucose 108 H 114 H 114 H Uric Acid Calcium Phosphorus Magnesium Iron TIBC AST ALT Total Creatine Kinase CK-MB (CK-2) Troponin T NT-Pro-B Natriuret Pep Total Protein Albumin Triglycerides HDL Cholesterol Folate Urine WBC (Auto) Urine Creatinine Urine Total Protein Vancomycin Trough 07/01/19 07/01/19 07/01/19 07:58 07:58 12:06 WBC 11.5 H RBC 3.24 L Hgb 9.0 L Hct 28.4 L MCV MCH MCHC RDW 20.8 H Plt Count Lymph % (Auto) 8.3 L [place] % (Auto) 10.0 H Eos % (Auto) Lymph # 0.9 L [place] # 1.2 H Eos # Seg Neutrophils % 79.4 H Seg Neuts % (Manual) Lymphocytes % (Manual) Monocytes % (Manual) Eosinophils % (Manual) Nucleated RBC % Seg Neutrophils # 9.1 H Seg Neutrophils # Man Lymphocytes # (Manual) Monocytes # (Manual) Eosinophils # (Manual) PT INR APTT Fibrinogen POC ABG pH ABG pH POC ABG pCO2 POC ABG pO2 ABG pO2 ABG HCO3 ABG O2 Saturation ABG Base Excess ABG Hemoglobin Oxyhemoglobin Sodium Potassium Chloride Carbon Dioxide BUN Creatinine 0.4 L Glucose 130 H POC Glucose 133 H Uric Acid Calcium Phosphorus Magnesium Iron TIBC AST ALT Total Creatine Kinase CK-MB (CK-2) Troponin T NT-Pro-B Natriuret Pep Total Protein Albumin Triglycerides HDL Cholesterol Folate Urine WBC (Auto) Urine Creatinine Urine Total Protein Vancomycin Trough 07/02/19 07/02/19 07/02/19 05:54 13:27 13:39 WBC RBC Hgb Hct MCV MCH MCHC RDW Plt Count Lymph % (Auto) [place] % (Auto) Eos % (Auto) Lymph # [place] # Eos # Seg Neutrophils % Seg Neuts % (Manual) Lymphocytes % (Manual) Monocytes % (Manual) Eosinophils % (Manual) Nucleated RBC % Seg Neutrophils # Seg Neutrophils # Man Lymphocytes # (Manual) Monocytes # (Manual) Eosinophils # (Manual) PT INR APTT Fibrinogen POC ABG pH ABG pH POC ABG pCO2 POC ABG pO2 ABG pO2 ABG HCO3 ABG O2 Saturation ABG Base Excess ABG Hemoglobin Oxyhemoglobin Sodium Potassium Chloride Carbon Dioxide BUN Creatinine Glucose POC Glucose 111 H 123 H 116 H Uric Acid Calcium Phosphorus Magnesium Iron TIBC AST ALT Total Creatine Kinase CK-MB (CK-2) Troponin T NT-Pro-B Natriuret Pep Total Protein Albumin Triglycerides HDL Cholesterol Folate Urine WBC (Auto) Urine Creatinine Urine Total Protein Vancomycin Trough 07/02/19 07/03/19 07/04/19 18:00 06:06 12:15 WBC RBC Hgb Hct MCV MCH MCHC RDW Plt Count Lymph % (Auto) [place] % (Auto) Eos % (Auto) Lymph # [place] # Eos # Seg Neutrophils % Seg Neuts % (Manual) Lymphocytes % (Manual) Monocytes % (Manual) Eosinophils % (Manual) Nucleated RBC % Seg Neutrophils # Seg Neutrophils # Man Lymphocytes # (Manual) Monocytes # (Manual) Eosinophils # (Manual) PT INR APTT Fibrinogen POC ABG pH ABG pH POC ABG pCO2 POC ABG pO2 ABG pO2 ABG HCO3 ABG O2 Saturation ABG Base Excess ABG Hemoglobin Oxyhemoglobin Sodium Potassium Chloride Carbon Dioxide BUN Creatinine Glucose POC Glucose 118 H 127 H 122 H Uric Acid Calcium Phosphorus Magnesium Iron TIBC AST ALT Total Creatine Kinase CK-MB (CK-2) Troponin T NT-Pro-B Natriuret Pep Total Protein Albumin Triglycerides HDL Cholesterol Folate Urine WBC (Auto) Urine Creatinine Urine Total Protein Vancomycin Trough 07/04/19 07/04/19 07/05/19 18:09 23:48 06:30 WBC RBC Hgb Hct MCV MCH MCHC RDW Plt Count Lymph % (Auto) [place] % (Auto) Eos % (Auto) Lymph # [place] # Eos # Seg Neutrophils % Seg Neuts % (Manual) Lymphocytes % (Manual) Monocytes % (Manual) Eosinophils % (Manual) Nucleated RBC % Seg Neutrophils # Seg Neutrophils # Man Lymphocytes # (Manual) Monocytes # (Manual) Eosinophils # (Manual) PT INR APTT Fibrinogen POC ABG pH ABG pH POC ABG pCO2 POC ABG pO2 ABG pO2 ABG HCO3 ABG O2 Saturation ABG Base Excess ABG Hemoglobin Oxyhemoglobin Sodium Potassium Chloride Carbon Dioxide BUN Creatinine Glucose POC Glucose 115 H 110 H 106 H Uric Acid Calcium Phosphorus Magnesium Iron TIBC AST ALT Total Creatine Kinase CK-MB (CK-2) Troponin T NT-Pro-B Natriuret Pep Total Protein Albumin Triglycerides HDL Cholesterol Folate Urine WBC (Auto) Urine Creatinine Urine Total Protein Vancomycin Trough 07/05/19 07/05/19 07/05/19 11:55 18:16 23:38 WBC RBC Hgb Hct MCV MCH MCHC RDW Plt Count Lymph % (Auto) [place] % (Auto) Eos % (Auto) Lymph # [place] # Eos # Seg Neutrophils % Seg Neuts % (Manual) Lymphocytes % (Manual) Monocytes % (Manual) Eosinophils % (Manual) Nucleated RBC % Seg Neutrophils # Seg Neutrophils # Man Lymphocytes # (Manual) Monocytes # (Manual) Eosinophils # (Manual) PT INR APTT Fibrinogen POC ABG pH ABG pH POC ABG pCO2 POC ABG pO2 ABG pO2 ABG HCO3 ABG O2 Saturation ABG Base Excess ABG Hemoglobin Oxyhemoglobin Sodium Potassium Chloride Carbon Dioxide BUN Creatinine Glucose POC Glucose 106 H 120 H 114 H Uric Acid Calcium Phosphorus Magnesium Iron TIBC AST ALT Total Creatine Kinase CK-MB (CK-2) Troponin T NT-Pro-B Natriuret Pep Total Protein Albumin Triglycerides HDL Cholesterol Folate Urine WBC (Auto) Urine Creatinine Urine Total Protein Vancomycin Trough 07/06/19 07/06/19 07/06/19 06:01 12:28 18:49 WBC RBC Hgb Hct MCV MCH MCHC RDW Plt Count Lymph % (Auto) [place] % (Auto) Eos % (Auto) Lymph # [place] # Eos # Seg Neutrophils % Seg Neuts % (Manual) Lymphocytes % (Manual) Monocytes % (Manual) Eosinophils % (Manual) Nucleated RBC % Seg Neutrophils # Seg Neutrophils # Man Lymphocytes # (Manual) Monocytes # (Manual) Eosinophils # (Manual) PT INR APTT Fibrinogen POC ABG pH ABG pH POC ABG pCO2 POC ABG pO2 ABG pO2 ABG HCO3 ABG O2 Saturation ABG Base Excess ABG Hemoglobin Oxyhemoglobin Sodium Potassium Chloride Carbon Dioxide BUN Creatinine Glucose POC Glucose 115 H 114 H 111 H Uric Acid Calcium Phosphorus Magnesium Iron TIBC AST ALT Total Creatine Kinase CK-MB (CK-2) Troponin T NT-Pro-B Natriuret Pep Total Protein Albumin Triglycerides HDL Cholesterol Folate Urine WBC (Auto) Urine Creatinine Urine Total Protein Vancomycin Trough 07/07/19 05:34 WBC RBC Hgb Hct MCV MCH MCHC RDW Plt Count Lymph % (Auto) [place] % (Auto) Eos % (Auto) Lymph # [place] # Eos # Seg Neutrophils % Seg Neuts % (Manual) Lymphocytes % (Manual) Monocytes % (Manual) Eosinophils % (Manual) Nucleated RBC % Seg Neutrophils # Seg Neutrophils # Man Lymphocytes # (Manual) Monocytes # (Manual) Eosinophils # (Manual) PT INR APTT Fibrinogen POC ABG pH ABG pH POC ABG pCO2 POC ABG pO2 ABG pO2 ABG HCO3 ABG O2 Saturation ABG Base Excess ABG Hemoglobin Oxyhemoglobin Sodium Potassium Chloride Carbon Dioxide BUN Creatinine Glucose POC Glucose 121 H Uric Acid Calcium Phosphorus Magnesium Iron TIBC AST ALT Total Creatine Kinase CK-MB (CK-2) Troponin T NT-Pro-B Natriuret Pep Total Protein Albumin Triglycerides HDL Cholesterol Folate Urine WBC (Auto) Urine Creatinine Urine Total Protein Vancomycin Trough
--- NOTE | 2019-07-07 13:12 | Progress Note ---
Assessment and Plan /Febrile illness - spiking low grade temp intermittently - Internal jugular tunneled hemodialysis catheter removed - could be from aspiration pneumonitis ? cxr unremarkable - negative blood Cx and UA - ID following, monitor off abx /Acute respiratory failure; vent dependent/status post trach and PEG Off ventilatory support, on T-piece ,trach care, nebulizers Pulmonary critical following /Obesity hypoventilation syndrome Status post tracheostomy, titrate O2 sats to more than 90% /Status post cardiac arrest mild anoxic brain injury patient's mentation is improved ., EEG was negative for seizures and neurology evaluated /Severe malnutrition Dysphasia; dw with his mom, she is agreeable to PEG tube, GS consulted Dietitian input appreciated, continue tube feeds /Anemia of chronic disease : Closely monitor H&H and transfuse as needed. 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 Now Patient is on Eliquis /-Acute kidney injury due to ATN : Requiring dialysis Resolved, nephrology following. /Hypernatremia/Hypokalemia/ hypomagnesemia: Resolved /Morbid obesity; will need weight loss program upon discharge /DVT prophylaxis; scd /Eliquis Plan of care discussed with the patient and his nurse Physical therapy/occupational therapy when patient is stable Disposition ; home with home health versus placement when patient is stable. Social and insurance issues. Brief History 34-year-old man with morbid obesity was brought to the hospital for shortness of breath and insomnia. He was found to have severe hypoxia and bradycardia who then became pulseless, he was cyanotic and he was intubated after receiving CPR with 2 rounds of epinephrine. Patient was intubated, extubated and reintubated, unable to wean vent dependent, underwent trach and PEG on 06/22/2019, later weaned off vent on T piece alert and awake in mild distress. Discharge Planning per case management [social/insurance issues]. Hospitalist Physical General appearance: Present: mild distress, well-nourished, obese (morbidly obese), other (tracheostomy /T-piece) - EENT Eyes: Present: PERRL, EOM intact - Neck Neck: Present: supple, normal ROM - Respiratory Respiratory effort: normal Respiratory: bilateral: diminished, rales, rhonchi, negative: wheezing - Cardiovascular Rhythm: regular Heart Sounds: Present: S1 & S2 - Extremities Extremities: no ischemia, No edema - Abdominal General gastrointestinal: soft, non-tender, non-distended, normal bowel sounds, other (PEG tube in place) - Integumentary Integumentary: Present: clear, warm - Psychiatric Psychiatric: appropriate mood/affect, cooperative - Neurologic Neurologic: moves all extremities Subjective Date of service: 07/07/19 Principal diagnosis: anemia - LOw PLT Interval history: Patient seen and examined. Medical records and medication list reviewed. Patient remained minimally responsive on mechanical ventilation with trach Discussed plan of care at bedside with patient's RN. No family member at the bedside Objective - Constitutional Vitals: Vital Signs - 12hr 07/07/19 07/07/19 07/07/19 02:01 04:00 05:19 Temperature 100.4 F H Pulse Rate 97 H 100 H 102 H Pulse Rate [ 103 H From Monitor] Respiratory 16 15 Rate Blood Pressure 148/91 160/93 160/93 O2 Sat by Pulse 98 99 Oximetry O2 Sat by Pulse Oximetry [ Assessment] 07/07/19 07/07/19 07/07/19 06:01 08:00 08:01 Temperature 99.4 F Pulse Rate 92 H 98 H Pulse Rate [ From Monitor] Respiratory 15 Rate Blood Pressure 160/93 121/93 O2 Sat by Pulse 96 98 99 Oximetry O2 Sat by Pulse Oximetry [ Assessment] 07/07/19 07/07/19 07/07/19 09:15 09:20 10:01 Temperature Pulse Rate 97 H Pulse Rate [ From Monitor] Respiratory Rate Blood Pressure 121/93 O2 Sat by Pulse 96 96 Oximetry O2 Sat by Pulse 96 Oximetry [ Assessment] 07/07/19 10:07 Temperature Pulse Rate 98 H Pulse Rate [ From Monitor] Respiratory Rate Blood Pressure 121/93 O2 Sat by Pulse Oximetry O2 Sat by Pulse Oximetry [ Assessment] - Labs CBC & Chem 7: 07/08/19 04:00 07/08/19 04:00 Labs: Abnormal lab results 07/06/19 07/07/19 07/07/19 Range/Units 18:49 05:34 11:57 POC Glucose 111 H 121 H 135 H (70-105)
--- NOTE | 2019-07-07 18:18 | Progress Note ---
Assessment and Plan Cultures: Blood cultures 05/11/19: no growth thus far Blood cultures 05/18/19 pending Sputum culture 05/11/19: no growth thus far urine culture: no growth resp culture: no growth Blood culture 05/18/2019: no growth thus far urine culture 05/20/2019: normal skin shandra, Xenia albicans sputum culture 05/20/2019: Xenia albicans Blood culture 05/23/2019: no growth 06/24/2019 blood culture: negative 06/24/2019 sputum culture: negative New cultures: Blood culture 07/03/2019: Pending A/P: 34-year-old male with obesity admitted with: #New fever and leucocytosis: etiology unclear, follow up cultures. Repeat CXR. hold off on antibiotics for now. #Initial Fever, SIRS with shock: shock resolved, intermittently febrile. Initially felt to be ?aspiration related. Apparently was using CPAP. Persistent febrile again, likely ?UTI. Repeat UA showed pyuria, had indwelling Han which was removed again 05/20. Urine culture with normal skin shandra. Fevers now recurred since 05/17. Should eval for worsening pneumonia, sinusitis, but unable to fit in CT scan. candiduria also generally does not require treatment, but in this patient with recurrent fever, reasonable to consider a trial of fluconazole renally adjusted. Likely drug fever, given eosinophilia. Fever resolved with steroids. #Diffuse rash with eosinophilia: abx classes were changed on 05/25/2019 and then all abx stopped on 05/27/2019. #Acute hypoxic hypercapneic respiratory failure, possibly obesity hypoventilation syndrome: on the vent. Pulmonary managing. Xenia in sputum does not need treatment, it almost never causes a pneumonia and is reflective of colonization, overgrowth in the setting of abx use #Morbid obesity #CARLA: resolved. #Acute encephalopathy with ?seizure activity: persistent fevers. Had received empiric meningitis coverage earlier this admission #UTI: s/p han removal on 05/20 Recs: - hold off on empiric antibiotics - follow up repeat blood cultures. We will follow MD Ayse Castro [facility] M: [phone] O: [phone] F: [phone] Subjective Date of service: 07/07/19 Principal diagnosis: anemia - LOw PLT Interval history: Febrile to 100.4. No other changes at this time. Objective - Exam Narrative Exam: Constitutional: awake, alert. Morbid obesity Head, Ears, Nose: Normocephalic, atraumatic. Neck: trach + Cardiovascular: S1, S2 normal. Respiratory: Good air entry, clear to auscultation bilaterally GI: Soft, non-tender; bowel sounds normal. No peritoneal signs Musculoskeletal: No pedal edema, no cyanosis. Skin: no rash, no abscess Hem/Lymphatic: No palpable cervical or supraclavicular nodes. No lymphangitis Psych: calm, no agitation Neurological: awake, alert, obeys commands, communicative - Constitutional Vitals: Vital Signs Temp Pulse Resp BP Pulse Ox 98.9 F 102 H 15 139/74 99 07/07/19 12:00 07/07/19 17:06 07/07/19 06:01 07/07/19 17:06 07/07/19 14:01 Temperature -Last 24 Hours Temperature 98.9 F Temperature 99.4 F Temperature 100.4 F Temperature 97.6 F Temperature 99.6 F - Labs CBC & Chem 7: 07/01/19 07:58 07/01/19 07:58 Labs: Abnormal lab results 07/06/19 07/07/19 07/07/19 Range/Units 18:49 05:34 11:57 POC Glucose 111 H 121 H 135 H (70-105)
[2019-07-07] MEDS: ACETAMINOPHEN 325 MG TAB PO PRN (21:13)
[2019-07-08] MEDS: INSULIN LISPRO 100 UNIT/ML SUB-Q SCH ×4 (00:38→17:54)
[2019-07-08 04:36] LABS: Hemoglobin 9.3 gm/dl (11.8-15.2); Mean Corpuscular HGB Conc 32 % (32-34); Mean Corpuscular Volume 88 fl (84-94); Platelet Count 387 K/mm3 (140-440); Red Cell Distribution Width 19.9 % (13.2-15.2)
[2019-07-08 04:55] LABS: BUN/Creatinine Ratio 24; Blood Urea Nitrogen 12 mg/dL (9-20); Calcium 8.8 mg/dL (8.4-10.2); Hemolysis Index 0
[2019-07-08 05:36] LABS: Anisocytosis 1+; Basophils % (Manual) 0 % (0.0-1.8); Total Cells Counted 100
[2019-07-08 05:37] LABS: Platelet Estimate Consistent w Auto
[2019-07-08] MEDS: FERROUS SULFATE 308 MG (62mg Elemental Iron) / 7 ML ELIXIR PO SCH (09:23)
[2019-07-08] MEDS: amLODIPine 10 MG TAB PO SCH (09:23)
[2019-07-08] MEDS: MULTIVITAMINS 5 ML ORAL LIQUID PO SCH (09:23)
[2019-07-08] MEDS: FAMOTIDINE 20 MG TAB PO SCH (09:24)
[2019-07-08] MEDS: ACETAMINOPHEN 325 MG TAB PO PRN (09:24)
[2019-07-08] MEDS: hydroCHLOROthiazide 25 MG TAB PO SCH (09:24)
[2019-07-08] MEDS: APIXABAN 2.5 MG TAB PO SCH ×2 (09:25→23:39)
[2019-07-08] MEDS: POTASSIUM CHLORIDE 20 MEQ PACKET FEEDTUBE SCH (09:25)
--- NOTE | 2019-07-08 15:12 | Progress Note ---
Assessment and Plan /Febrile illness - spiking low grade temp intermittently - Internal jugular tunneled hemodialysis catheter removed - could be from aspiration pneumonitis ? cxr unremarkable - negative blood Cx and UA - ID following, monitor off abx /Acute respiratory failure; vent dependent/status post trach and PEG Off ventilatory support, on T-piece, cont trach care, scheduled nebulizers Pulmonary critical following /Obesity hypoventilation syndrome Status post tracheostomy, titrate O2 sats to more than 90% /Status post cardiac arrest mild anoxic brain injury patient's mentation is improved - able to follow commend EEG was negative for seizures and neurology evaluated /Severe malnutrition Dysphasia; dw with his mom, she is agreeable to PEG tube, GS consulted Dietitian input appreciated, continue tube feeds /Anemia of chronic disease : Closely monitor H&H and transfuse as needed. 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 Now Patient is on Eliquis /-Acute kidney injury due to ATN : Requiring dialysis Resolved, nephrology following. /Hypernatremia/Hypokalemia/ hypomagnesemia: Resolved /Morbid obesity; will need weight loss program upon discharge /DVT prophylaxis; scd /Eliquis Plan of care discussed with the patient and his nurse Physical therapy/occupational therapy when patient is stable Disposition ; home with home health versus placement when patient is stable. Social and insurance issues. Brief History 34-year-old man with morbid obesity was brought to the hospital for shortness of breath and insomnia. He was found to have severe hypoxia and bradycardia who then became pulseless, he was cyanotic and he was intubated after receiving CPR with 2 rounds of epinephrine. Patient was intubated, extubated and reintubated, unable to wean vent dependent, underwent trach and PEG on 06/22/2019, later weaned off vent on T piece alert and awake in mild distress. Discharge Planning per case management [social/insurance issues]. Hospitalist Physical General appearance: Present: mild distress, well-nourished, obese (morbidly obese), other (tracheostomy /T-piece) - EENT Eyes: Present: PERRL, EOM intact - Neck Neck: Present: supple, normal ROM - Respiratory Respiratory effort: normal Respiratory: bilateral: diminished, rales, rhonchi, negative: wheezing - Cardiovascular Rhythm: regular Heart Sounds: Present: S1 & S2 - Extremities Extremities: no ischemia, No edema - Abdominal General gastrointestinal: soft, non-tender, non-distended, normal bowel sounds, other (PEG tube in place) - Integumentary Integumentary: Present: clear, warm - Psychiatric Psychiatric: cooperative - Neurologic Neurologic: moves all extremities Subjective Date of service: 07/08/19 Principal diagnosis: anemia - LOw PLT Interval history: Patient seen and examined. Medical records and medication list reviewed. Patient remained minimally responsive on mechanical ventilation with trach Discussed plan of care at bedside with patient's RN. No family member at the bedside Objective - Constitutional Vitals: Vital Signs - 12hr 07/08/19 07/08/19 07/08/19 03:49 04:00 05:05 Temperature 98.7 F Pulse Rate 96 H 99 H Pulse Rate [ 97 H From Monitor] Respiratory 20 19 Rate Blood Pressure 147/86 147/86 O2 Sat by Pulse 99 100 Oximetry O2 Sat by Pulse Oximetry [ Assessment] 07/08/19 07/08/19 07/08/19 06:01 06:12 08:00 Temperature 99.0 F Pulse Rate 90 96 H Pulse Rate [ 96 H From Monitor] Respiratory 20 16 Rate Blood Pressure 147/86 136/82 O2 Sat by Pulse 99 99 Oximetry O2 Sat by Pulse 96 Oximetry [ Assessment] 07/08/19 07/08/19 07/08/19 09:23 10:01 12:00 Temperature 99.2 F Pulse Rate 97 H 102 H Pulse Rate [ 102 H From Monitor] Respiratory 20 Rate Blood Pressure 149/87 149/87 142/73 O2 Sat by Pulse 100 98 Oximetry O2 Sat by Pulse Oximetry [ Assessment] 07/08/19 07/08/19 12:44 14:51 Temperature 99.0 F Pulse Rate 101 H Pulse Rate [ From Monitor] Respiratory Rate Blood Pressure 164/95 O2 Sat by Pulse Oximetry O2 Sat by Pulse Oximetry [ Assessment] - Labs CBC & Chem 7: 07/08/19 04:00 07/08/19 04:00 Labs: Abnormal lab results 07/07/19 07/08/19 07/08/19 Range/Units 23:54 04:00 04:00 RBC 3.30 L (3.65-5.03) M/mm3 Hgb 9.3 L (11.8-15.2) gm/dl Hct 29.0 L (35.5-45.6) % RDW 19.9 H (13.2-15.2) % Seg Neuts % (Manual) 76.0 H (40.0-70.0) % Seg Neutrophils # Man 8.4 H (1.8-7.7) K/mm3 Creatinine 0.5 L (0.8-1.5) mg/dL Glucose 117 H (75-100) mg/dL POC Glucose 109 H (70-105)
--- NOTE | 2019-07-08 15:34 | Progress Note ---
Assessment and Plan Cultures: Blood cultures 05/11/19: no growth thus far Blood cultures 05/18/19 pending Sputum culture 05/11/19: no growth thus far urine culture: no growth resp culture: no growth Blood culture 05/18/2019: no growth thus far urine culture 05/20/2019: normal skin shandra, Xenia albicans sputum culture 05/20/2019: Xenia albicans Blood culture 05/23/2019: no growth 06/24/2019 blood culture: negative 06/24/2019 sputum culture: negative New cultures: Blood culture 07/03/2019: Pending A/P: 34-year-old male with obesity admitted with: #New fever and leucocytosis: etiology unclear, follow up cultures. Repeat CXR. hold off on antibiotics for now. #Initial Fever, SIRS with shock: shock resolved, intermittently febrile. Initially felt to be ?aspiration related. Apparently was using CPAP. Persistent febrile again, likely ?UTI. Repeat UA showed pyuria, had indwelling Han which was removed again 05/20. Urine culture with normal skin shandra. Fevers now recurred since 05/17. Should eval for worsening pneumonia, sinusitis, but unable to fit in CT scan. candiduria also generally does not require treatment, but in this patient with recurrent fever, reasonable to consider a trial of fluconazole renally adjusted. Likely drug fever, given eosinophilia. Fever resolved with steroids. #Diffuse rash with eosinophilia: abx classes were changed on 05/25/2019 and then all abx stopped on 05/27/2019. #Acute hypoxic hypercapneic respiratory failure, possibly obesity hypoventilation syndrome: on the vent. Pulmonary managing. Xenia in sputum does not need treatment, it almost never causes a pneumonia and is reflective of colonization, overgrowth in the setting of abx use #Morbid obesity #CARLA: resolved. #Acute encephalopathy with ?seizure activity: persistent fevers. Had received empiric meningitis coverage earlier this admission #UTI: s/p han removal on 05/20 Recs: - hold off on empiric antibiotics - follow up repeat blood cultures. We will sign off for now, please call with new questions. Nancy Bearden MD [facility] ([facility] M: [phone] O: [phone] F: [phone] Subjective Date of service: 07/08/19 Principal diagnosis: anemia - LOw PLT Interval history: Afebrile, normal white count. Remains nonresponsive Objective - Exam Narrative Exam: Constitutional: awake, alert. Morbid obesity Neck: trach + Cardiovascular: S1, S2 normal. Respiratory: Good air entry, clear to auscultation bilaterally GI: Soft, non-tender; bowel sounds normal. No peritoneal signs Musculoskeletal: No pedal edema, no cyanosis. Skin: no rash, no abscess Hem/Lymphatic: No palpable cervical or supraclavicular nodes. No lymphangitis Psych: calm, no agitation Neurological: awake, alert, obeys commands, communicative - Constitutional Vitals: Vital Signs Temp Pulse Resp BP Pulse Ox 99.0 F 101 H 20 164/95 98 07/08/19 12:44 07/08/19 14:51 07/08/19 12:00 07/08/19 14:51 07/08/19 12:00 Temperature -Last 24 Hours Temperature 99.0 F Temperature 99.2 F Temperature 99.2 F Temperature 99.0 F Temperature 98.7 F Temperature 99.9 F Temperature 99.9 F - Labs CBC & Chem 7: 07/08/19 04:00 07/08/19 04:00 Labs: Abnormal lab results 07/07/19 07/08/19 07/08/19 Range/Units 23:54 04:00 04:00 RBC 3.30 L (3.65-5.03) M/mm3 Hgb 9.3 L (11.8-15.2) gm/dl Hct 29.0 L (35.5-45.6) % RDW 19.9 H (13.2-15.2) % Seg Neuts % (Manual) 76.0 H (40.0-70.0) % Seg Neutrophils # Man 8.4 H (1.8-7.7) K/mm3 Creatinine 0.5 L (0.8-1.5) mg/dL Glucose 117 H (75-100) mg/dL POC Glucose 109 H (70-105)
[2019-07-09] MEDS: INSULIN LISPRO 100 UNIT/ML SUB-Q SCH ×2 (06:14→12:06)
[2019-07-09] MEDS: FAMOTIDINE 20 MG TAB PO SCH ×3 (06:15→23:19)
[2019-07-09] MEDS: MULTIVITAMINS 5 ML ORAL LIQUID PO SCH (09:24)
[2019-07-09] MEDS: APIXABAN 2.5 MG TAB PO SCH ×2 (09:24→23:18)
[2019-07-09] MEDS: POTASSIUM CHLORIDE 20 MEQ PACKET FEEDTUBE SCH (09:24)
[2019-07-09] MEDS: SCOPOLAMINE TRANSDERMAL PATCH 72 HR TD SCH (09:24)
[2019-07-09] MEDS: FERROUS SULFATE 308 MG (62mg Elemental Iron) / 7 ML ELIXIR PO SCH (09:25)
[2019-07-09] MEDS: amLODIPine 10 MG TAB PO SCH (09:25)
[2019-07-09] MEDS: hydroCHLOROthiazide 25 MG TAB PO SCH (09:26)
--- NOTE | 2019-07-09 15:18 | Progress Note ---
Assessment and Plan Assessment and plan: /Febrile illness - spiking low grade temp intermittently - Internal jugular tunneled hemodialysis catheter removed - negative blood Cx and UA - ID following, monitor off abx /Acute respiratory failure; vent dependent/status post trach and PEG Off ventilatory support, on T-piece, cont trach care, scheduled nebulizers Pulmonary critical following /Obesity hypoventilation syndrome Status post tracheostomy, titrate O2 sats to more than 90% /Status post cardiac arrest mild anoxic brain injury patient's mentation is improved - able to follow commend EEG was negative for seizures and neurology evaluated /Severe malnutrition Dysphasia; dw with his mom, she is agreeable to PEG tube, GS consulted Dietitian input appreciated, continue tube feeds /Anemia of chronic disease : Closely monitor H&H and transfuse as needed. 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 Now Patient is on Eliquis /-Acute kidney injury due to ATN : Requiring dialysis Resolved, nephrology following. /Hypernatremia/Hypokalemia/ hypomagnesemia: Resolved /Morbid obesity; will need weight loss program upon discharge /DVT prophylaxis; scd /Eliquis Plan of care discussed with the patient and his nurse Physical therapy/occupational therapy when patient is stable Disposition ; home with home health versus placement when patient is stable. Social and insurance issues. History Interval history: patient with resp failure s/p trach and PEG Hospitalist Physical - Physical exam Narrative exam: Gen: Not in acute distress, morbidly obese HEENT: Normocephalic, atraumatic Neck: supple, no JVD,tracheostomy Heart: S1 and S2 reg, no murmurs, rubs or gallop Lungs: Clear to auscultation bilaterally, no wheeze Abd: soft, NT, non distended, normal bowel sounds,PEG Ext:No edema, no cyanosis - Constitutional Vitals: Temp Pulse Resp BP Pulse Ox 99.1 F 101 H 30 H 119/62 97 07/09/19 12:00 07/09/19 14:01 07/09/19 14:01 07/09/19 14:01 07/09/19 14:01 General appearance: Present: obese, other (tracheostomy /T-piece) Results - Labs CBC & Chem 7: 07/08/19 04:00 07/08/19 04:00 Labs: Laboratory Last Values WBC 11.0 K/mm3 (4.5-11.0) 07/08/19 04:00 RBC 3.30 M/mm3 (3.65-5.03) L 07/08/19 04:00 Hgb 9.3 gm/dl (11.8-15.2) L 07/08/19 04:00 Hct 29.0 % (35.5-45.6) L 07/08/19 04:00 MCV 88 fl (84-94) 07/08/19 04:00 MCH 28 pg (28-32) 07/08/19 04:00 MCHC 32 % (32-34) 07/08/19 04:00 RDW 19.9 % (13.2-15.2) H 07/08/19 04:00 Plt Count 387 K/mm3 (140-440) 07/08/19 04:00 Lymph % (Auto) 8.3 % (13.4-35.0) L 07/01/19 07:58 [place] % (Auto) 10.0 % (0.0-7.3) H 07/01/19 07:58 Eos % (Auto) 1.5 % (0.0-4.3) 07/01/19 07:58 Baso % (Auto) 0.8 % (0.0-1.8) 07/01/19 07:58 Lymph # 0.9 K/mm3 (1.2-5.4) L 07/01/19 07:58 [place] # 1.2 K/mm3 (0.0-0.8) H 07/01/19 07:58 Eos # 0.2 K/mm3 (0.0-0.4) 07/01/19 07:58 Baso # 0.1 K/mm3 (0.0-0.1) 07/01/19 07:58 Add Manual Diff Complete 07/08/19 04:00 Total Counted 100 07/08/19 04:00 Seg Neutrophils % 79.4 % (40.0-70.0) H 07/01/19 07:58 Seg Neuts % (Manual) 76.0 % (40.0-70.0) H 07/08/19 04:00 Band Neutrophils % 0 % 07/08/19 04:00 Lymphocytes % (Manual) 16.0 % (13.4-35.0) 07/08/19 04:00 Reactive Lymphs % (Man) 0 % 07/08/19 04:00 Monocytes % (Manual) 6.0 % (0.0-7.3) 07/08/19 04:00 Eosinophils % (Manual) 2.0 % (0.0-4.3) 07/08/19 04:00 Basophils % (Manual) 0 % (0.0-1.8) 07/08/19 04:00 Metamyelocytes % 0 % 07/08/19 04:00 Myelocytes % 0 % 07/08/19 04:00 Promyelocytes % 0 % 07/08/19 04:00 Blast Cells % 0 % 07/08/19 04:00 Nucleated RBC % Not Reportable 07/08/19 04:00 Seg Neutrophils # 9.1 K/mm3 (1.8-7.7) H 07/01/19 07:58 Seg Neutrophils # Man 8.4 K/mm3 (1.8-7.7) H 07/08/19 04:00 Band Neutrophils # 0.0 K/mm3 07/08/19 04:00 Lymphocytes # (Manual) 1.8 K/mm3 (1.2-5.4) 07/08/19 04:00 Abs React Lymphs (Man) 0.0 K/mm3 07/08/19 04:00 Monocytes # (Manual) 0.7 K/mm3 (0.0-0.8) 07/08/19 04:00 Eosinophils # (Manual) 0.2 K/mm3 (0.0-0.4) 07/08/19 04:00 Basophils # (Manual) 0.0 K/mm3 (0.0-0.1) 07/08/19 04:00 Metamyelocytes # 0.0 K/mm3 07/08/19 04:00 Myelocytes # 0.0 K/mm3 07/08/19 04:00 Promyelocytes # 0.0 K/mm3 07/08/19 04:00 Blast Cells # 0.0 K/mm3 07/08/19 04:00 WBC Morphology Not Reportable 07/08/19 04:00 Hypersegmented Neuts Not Reportable 07/08/19 04:00 Hyposegmented Neuts Not Reportable 07/08/19 04:00 Hypogranular Neuts Not Reportable 07/08/19 04:00 Smudge Cells Not Reportable 07/08/19 04:00 Toxic Granulation Not Reportable 07/08/19 04:00 Toxic Vacuolation Not Reportable 07/08/19 04:00 Dohle Bodies Not Reportable 07/08/19 04:00 Pelger-Huet Anomaly Not Reportable 07/08/19 04:00 Renea Rods Not Reportable 07/08/19 04:00 Platelet Estimate Consistent w auto 07/08/19 04:00 Clumped Platelets Not Reportable 07/08/19 04:00 Plt Clumps, EDTA Not Reportable 07/08/19 04:00 Large Platelets Not Reportable 07/08/19 04:00 Giant Platelets Not Reportable 07/08/19 04:00 Platelet Satelliting Not Reportable 07/08/19 04:00 Plt Morphology Comment Not Reportable 07/08/19 04:00 RBC Morphology Not Reportable 07/08/19 04:00 Dimorphic RBCs Not Reportable 07/08/19 04:00 Polychromasia Not Reportable 07/08/19 04:00 Hypochromasia Not Reportable 07/08/19 04:00 Poikilocytosis Not Reportable 07/08/19 04:00 Anisocytosis 1+ 07/08/19 04:00 Microcytosis Not Reportable 07/08/19 04:00 Macrocytosis Not Reportable 07/08/19 04:00 Spherocytes Not Reportable 07/08/19 04:00 Pappenheimer Bodies Not Reportable 07/08/19 04:00 Sickle Cells Not Reportable 07/08/19 04:00 Target Cells Not Reportable 07/08/19 04:00 Tear Drop Cells Not Reportable 07/08/19 04:00 Ovalocytes Not Reportable 07/08/19 04:00 Stomatocytes 3+ 06/23/19 05:24 Helmet Cells Not Reportable 07/08/19 04:00 [place]-Sudley Bodies Not Reportable 07/08/19 04:00 [place] Rings Not Reportable 07/08/19 04:00 [place] Cells Not Reportable 07/08/19 04:00 Bite Cells Not Reportable 07/08/19 04:00 Crenated Cell Not Reportable 07/08/19 04:00 Elliptocytes Not Reportable 07/08/19 04:00 Acanthocytes (Spur) Not Reportable 07/08/19 04:00 Rouleaux Not Reportable 07/08/19 04:00 Hemoglobin C Crystals Not Reportable 07/08/19 04:00 Schistocytes Not Reportable 07/08/19 04:00 Malaria parasites Not Reportable 07/08/19 04:00 Syed Bodies Not Reportable 07/08/19 04:00 Hem Pathologist Commnt No 07/08/19 04:00 PT 15.4 Sec. (12.2-14.9) H 05/01/19 Unknown INR 1.23 (0.87-1.13) H 05/01/19 Unknown APTT 22.7 Sec. (24.2-36.6) L 05/01/19 Unknown Fibrinogen 194 mg/dl (211-480) L 06/17/19 12:45 Heparin Anti-Xa, Unfract Negative (Negative) 06/17/19 12:45 POC ABG pH 7.462 (7.35-7.45) H 06/05/19 03:52 ABG pH 7.469 pH Units (7.350-7.450) H 06/23/19 02:00 POC ABG pCO2 39.8 (35-45) 06/05/19 03:52 ABG pCO2 39.4 mm Hg 06/23/19 02:00 POC ABG pO2 86 (80-105) 06/05/19 03:52 ABG pO2 58.7 mm Hg (80.0-90.0) L 06/23/19 02:00 POC ABG HCO3 28.4 (22-26 mml/L) 06/05/19 03:52 ABG HCO3 28.0 mmol/L (20.0-26.0) H 06/23/19 02:00 POC ABG Total CO2 30 (23-27mmol/L) 06/05/19 03:52 POC ABG O2 Sat 97 06/05/19 03:52 ABG O2 Saturation 94.6 % (95.0-99.0) L 06/23/19 02:00 ABG O2 Content 9.2 (0.0-44) 06/23/19 02:00 POC ABG Base Excess 5 ((-2) - (+3)mmol/L) 06/05/19 03:52 ABG Base Excess 4.0 mmol/L (-2.0-3.0) H 06/23/19 02:00 ABG Hemoglobin 7.1 gm/dl (14.0-18.0) L 06/23/19 02:00 ABG Carboxyhemoglobin 2.0 % (0.0-5.0) 06/23/19 02:00 ABG Methemoglobin 0.5 % (0.0-1.5) 06/23/19 02:00 Oxyhemoglobin 92.2 % (95.0-99.0) L 06/23/19 02:00 FiO2 30 % 06/23/19 02:00 Sodium 141 mmol/L (137-145) 07/08/19 04:00 Potassium 4.3 mmol/L (3.6-5.0) 07/08/19 04:00 Chloride 99.8 mmol/L (98-107) 07/08/19 04:00 Carbon Dioxide 24 mmol/L (22-30) 07/08/19 04:00 Anion Gap 22 mmol/L 07/08/19 04:00 BUN 12 mg/dL (9-20) 07/08/19 04:00 Creatinine 0.5 mg/dL (0.8-1.5) L 07/08/19 04:00 Estimated GFR > 60 ml/min 07/08/19 04:00 BUN/Creatinine Ratio 24 % 07/08/19 04:00 Glucose 117 mg/dL (75-100) H 07/08/19 04:00 POC Glucose 111 (70-105) H 07/09/19 12:13 Osmolality 327 Mosm/kg 05/07/19 13:45 Uric Acid 18.0 mg/dL (3.5-7.6) H 05/07/19 13:45 Calcium 8.8 mg/dL (8.4-10.2) 07/08/19 04:00 Phosphorus 3.70 mg/dL (2.5-4.5) 06/10/19 05:45 Magnesium 1.60 mg/dL (1.7-2.3) L 06/26/19 04:43 Iron 45 ug/dL (49-181) L 06/20/19 09:12 TIBC 110 mcg/dL (250-450) L 06/20/19 09:12 Ferritin 315.2 ng/mL (13.0-400.0) 06/20/19 09:12 Total Bilirubin 0.50 mg/dL (0.1-1.2) 06/08/19 04:20 AST 23 units/L (5-40) 06/08/19 04:20 ALT 66 units/L (7-56) H 06/08/19 04:20 Alkaline Phosphatase 59 units/L (35-129) 06/08/19 04:20 Total Creatine Kinase 131 units/L (55-170) 05/02/19 04:41 CK-MB (CK-2) 5.2 ng/mL (0.0-4.0) H 05/02/19 04:41 CK-MB (CK-2) Rel Index 3.9 (0-4) 05/02/19 04:41 Troponin T 0.067 ng/mL (0.00-0.029) H D 05/02/19 04:41 NT-Pro-B Natriuret Pep 6831 pg/mL (0-450) H 05/01/19 Unknown Total Protein 5.5 g/dL (6.3-8.2) L 06/08/19 04:20 Albumin 2.9 g/dL (3.9-5) L 06/08/19 04:20 Albumin/Globulin Ratio 1.1 % 06/08/19 04:20 Triglycerides 210 mg/dL (2-149) H 06/19/19 04:30 Cholesterol 173 mg/dL (50-199) 05/02/19 00:06 LDL Cholesterol Direct 126 mg/dL (50-130) 05/02/19 00:06 HDL Cholesterol 18 mg/dL (40-59) L 05/02/19 00:06 Cholesterol/HDL Ratio 9.61 % 05/02/19 00:06 Serotonin Release Assay See scanned results 06/17/19 12:45 Vitamin B12 353.0 pg/mL (211-911) 06/20/19 09:12 Folate 7.01 ng/mL (7.3-26.0) L 06/20/19 09:12 Procalcitonin 0.05 ng/mL (<0.15) 06/17/19 12:45 Urine Color Yellow (Yellow) 06/17/19 12:45 Urine Turbidity Slightly-cloudy (Clear) 06/17/19 12:45 Urine pH 5.0 (5.0-7.0) 06/17/19 12:45 Ur Specific [place] 1.013 (1.003-1.030) 06/17/19 12:45 Urine Protein <15 mg/dl mg/dL (Negative) 06/17/19 12:45 Urine Glucose (UA) Neg mg/dL (Negative) 06/17/19 12:45 Urine Ketones Neg mg/dL (Negative) 06/17/19 12:45 Urine Blood Sm (Negative) 06/17/19 12:45 Urine Nitrite Neg (Negative) 06/17/19 12:45 Urine Bilirubin Neg (Negative) 06/17/19 12:45 Urine Urobilinogen < 2.0 mg/dL (<2.0) 06/17/19 12:45 Ur Leukocyte Esterase Neg (Negative) 06/17/19 12:45 Urine WBC (Auto) 2.0 /HPF (0.0-6.0) 06/17/19 12:45 Urine RBC (Auto) 2.0 /HPF (0.0-6.0) 06/17/19 12:45 U Epithel Cells (Auto) < 1.0 /HPF (0-13.0) 06/17/19 12:45 Urine Bacteria (Auto) 1+ /HPF (Negative) 05/20/19 12:00 Uric Acid Crystals 3+ 05/03/19 10:55 Urine Mucus Few /HPF 06/17/19 12:45 Urine Yeast (Budding) 3+ /HPF 05/20/19 12:00 Urine Creatinine 292.8 mg/dL (0.1-20.0) H 05/07/19 22:40 Urine Sodium 11 mmol/L 05/07/19 22:40 Urine Total Protein 269 mg/dL (5-11.8) H 05/07/19 22:40 Vancomycin Trough 20.5 ug/mL (5.0-20.0) H 05/15/19 09:00 Random Vancomycin 11.5 ug/mL (0-40.0) 05/27/19 06:00 AMNA Screen Negative (Negative) 05/07/19 13:45 Heparin-induced Plt Ab Negative (Negative) 06/17/19 12:45 UF Heparin High Dose 13 % Release 01/23/20 12:45 YUNG UFH Low Dose 0.1 8 % Release 06/17/19 12:45 YUNG UFH Low Dose 0.5 7 % Release 06/17/19 12:45 Hepatitis A IgM Ab Non-reactive (NonReactive) 05/07/19 13:45 Hep Bs Antigen Non-reactive (Negative) 05/07/19 13:45 Hep B Core IgM Ab Non-reactive (NonReactive) 05/07/19 13:45 Hepatitis C Antibody Non-reactive (NonReactive) 05/07/19 13:45 Influenza A (Rapid) Negative (Negative) 06/17/19 11:35 Influenza B (Rapid) Negative (Negative) 06/17/19 11:35 Active Medications - Current Medications Current Medications: Generic Name Dose Route Start Last Admin Trade Name Freq PRN Reason Stop Dose Admin Acetaminophen 650 mg 07/02/19 23:56 07/08/19 09:24 Tylenol PO 650 mg Q4H PRN Administration Pain, Mild (1-3) Amlodipine Besylate 10 mg 06/25/19 11:00 07/09/19 09:25 Amlodipine PO 10 mg DAILY VICKEY Administration Lipase/Protease/Amylase 1 each 05/14/19 15:01 Pancreaze 10,500 Unit FEEDTUBE PRN PRN For Clogged Feeding Tube Apixaban 2.5 mg 06/23/19 22:00 07/09/19 09:24 Eliquis PO 2.5 mg Q12HR VICKEY Administration Protocol Dextrose 50 gm 05/01/19 20:24 D50w (25gm) Vial IV Q30MIN PRN Hypoglycemia Protocol Famotidine 20 mg 06/17/19 10:00 07/09/19 09:26 Pepcid PO 20 mg BID VICKEY Administration Ferrous Sulfate 308 mg 06/18/19 12:00 07/09/19 09:25 Ferrous Sulfate PO 308 mg QDAY VICKEY Administration Hydrochlorothiazide 25 mg 06/26/19 11:00 07/09/19 09:26 Hctz PO 25 mg QDAY VICKEY Administration Hydrophilic Ointment 1 applic 06/16/19 17:34 Vaseline Lip Therapy TP Q2HR PRN Dry Lips Insulin Human Lispro 0 unit 06/01/19 14:00 07/09/19 12:06 Humalog SUB-Q Not Given Q6HR [facility]1983 Protocol Labetalol HCl 10 mg 06/11/19 22:48 06/29/19 04:24 Labetalol IV 10 mg Q4H PRN Administration BP >170/105; hold for HR <60 Labetalol HCl 200 mg 06/28/19 10:00 07/09/19 06:13 Labetalol PO 200 mg Q8HR VICKEY Administration Multi-Ingred Cream/Lotion/Oil/Oint 1 applic 06/16/19 18:00 Artificial Tears Ophth Oint OU Q4HR PRN Dry Eye(s) Multivitamins 5 ml 06/29/19 12:00 07/09/19 09:24 Centrum Liq PO 5 ml QDAY VICKEY Administration Potassium Chloride 40 meq 06/19/19 10:00 07/09/19 09:24 Potassium Chloride FEEDTUBE 40 meq QDAY VICKEY Administration Scopolamine 1 each 06/27/19 09:00 07/09/19 09:24 Transderm-Scop TD 1 each Q3D VICKEY Administration Simple Syrup 15 ml 05/14/19 15:01 Simple Syrup FEEDTUBE PRN PRN Hypoglycemia Simple Syrup 30 ml 05/14/19 15:01 Simple Syrup FEEDTUBE PRN PRN Hypoglycemia Sodium Bicarbonate 325 mg 05/14/19 15:01 Sodium Bicarbonate FEEDTUBE PRN PRN For Clogged Feeding Tube Nutrition/Malnutrition Assess - Dietary Evaluation Nutrition/Malnutrition Findings: Nutrition Notes Start: 05/04/19 12:54 Freq: Status: Active Protocol: Document 07/08/19 09:59 CT (Rec: 07/08/19 10:02 CT [id number]) Co-Sign 07/08/19 09:59 LP Nutrition Notes Initial or Follow up Reassessment Current Diagnosis Acute Kidney Injury,Sepsis, Respiratory Failure Other Pertinent Diagnosis HD Current Diet Osmolite 1.5 at 60 ml/hr Labs/Tests Cr 0.5 Glu 117 Pertinent Medications Humalog Height 6 ft 4 in Weight 189.8 kg [place] Body Weight (kg) 91.81 BMI 50.9 Weight Status Morbidly Obese Subjective/Other Information Osmolite running at 60 ml/hr at time of visit. Pt tolerating TF. Percent of energy/protein needs met: 100%/100% Burn Absent Trauma Absent GI Symptoms None Current % PO Negligible Minimum of two criteria No Fluid Accumulation Moderate to Severe (severe) #1 Nutrition Diagnosis Inadequate oral intake Diagnosis Progress(for reassessment Continues documentation) Is patient on ventilator? Yes Is Patient Ambulatory and/or Out of Bed No REE-([place]-St. Jeor-confined to bed) 3534.288 Kcal/Kg value to use for calculation 11 Approximate Energy Requirements Using 8 kcal/Kg Calculation Used for Recommendations Kcal/kg Additional Notes PRO needs: 73-91g (0.8-1 g/kg IBW 91kg CARLA resolved) Fluid needs: 1 ml/kcal Nutrition Intervention Change Diet Order: Continue TF Nutrition Support: Osmolite at 60 ml/hr Flush 400ml q4h for hypernatremia. And 200ml q4h once resolved Kcal 2,160 Protein (gm) 90 Fluid (mL) 1,097 Goal #1 TF tolerance Goal #2 Meet at least 80% of PRO/kcal needs via TF Anticipated Discharge Needs: Unable to determine at this time Follow-Up By: 07/15/19 Additional Comments F/U for TF tolerance
[2019-07-09] MEDS: ACETAMINOPHEN 325 MG TAB PO PRN (23:22)
[2019-07-10] MEDS: INSULIN LISPRO 100 UNIT/ML SUB-Q SCH ×3 (06:11→18:00)
[2019-07-10] MEDS: APIXABAN 2.5 MG TAB PO SCH ×2 (09:26→23:09)
[2019-07-10] MEDS: hydroCHLOROthiazide 25 MG TAB PO SCH (09:26)
[2019-07-10] MEDS: MULTIVITAMINS 5 ML ORAL LIQUID PO SCH (09:26)
[2019-07-10] MEDS: FAMOTIDINE 20 MG TAB PO SCH ×2 (09:27→23:10)
[2019-07-10] MEDS: POTASSIUM CHLORIDE 20 MEQ PACKET FEEDTUBE SCH (09:27)
[2019-07-10] MEDS: FERROUS SULFATE 308 MG (62mg Elemental Iron) / 7 ML ELIXIR PO SCH (09:28)
[2019-07-10] MEDS: amLODIPine 10 MG TAB PO SCH (09:29)
--- NOTE | 2019-07-10 10:23 | Progress Note ---
Assessment and Plan Assessment and plan: /Febrile illness - spiking low grade temp intermittently - Internal jugular tunneled hemodialysis catheter removed - negative blood Cx and UA - ID following, monitor off abx /Acute respiratory failure; vent dependent/status post trach and PEG Off ventilatory support, on T-piece, cont trach care, scheduled nebulizers Pulmonary critical following /Obesity hypoventilation syndrome Status post tracheostomy, titrate O2 sats to more than 90% /Status post cardiac arrest mild anoxic brain injury patient's mentation is improved - able to follow commend EEG was negative for seizures and neurology evaluated /Severe malnutrition Dysphasia; dw with his mom, she is agreeable to PEG tube, GS consulted Dietitian input appreciated, continue tube feeds /Anemia of chronic disease : Closely monitor H&H and transfuse as needed. 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 Now Patient is on Eliquis /-Acute kidney injury due to ATN : Requiring dialysis Resolved, nephrology following. /Hypernatremia/Hypokalemia/ hypomagnesemia: Resolved /Morbid obesity; will need weight loss program upon discharge /DVT prophylaxis; scd /Eliquis Plan of care discussed with the patient and his nurse Physical therapy/occupational therapy when patient is stable Disposition ; home with home health versus placement when patient is stable. Social and insurance issues. History Interval history: patient with resp failure s/p trach and PEG Hospitalist Physical - Physical exam Narrative exam: Gen: Not in acute distress, morbidly obese HEENT: Normocephalic, atraumatic Neck: supple, no JVD,tracheostomy Heart: S1 and S2 reg, no murmurs, rubs or gallop Lungs: Clear to auscultation bilaterally, no wheeze Abd: soft, NT, non distended, normal bowel sounds,PEG Ext:No edema, no cyanosis - Constitutional Vitals: Temp Pulse Resp BP Pulse Ox 99.7 F H 94 H 16 148/113 97 07/10/19 08:00 07/10/19 09:29 07/10/19 08:00 07/10/19 09:29 07/10/19 08:17 General appearance: Present: obese, other (tracheostomy /T-piece) Results - Labs CBC & Chem 7: 07/08/19 04:00 07/08/19 04:00 Labs: Laboratory Last Values WBC 11.0 K/mm3 (4.5-11.0) 07/08/19 04:00 RBC 3.30 M/mm3 (3.65-5.03) L 07/08/19 04:00 Hgb 9.3 gm/dl (11.8-15.2) L 07/08/19 04:00 Hct 29.0 % (35.5-45.6) L 07/08/19 04:00 MCV 88 fl (84-94) 07/08/19 04:00 MCH 28 pg (28-32) 07/08/19 04:00 MCHC 32 % (32-34) 07/08/19 04:00 RDW 19.9 % (13.2-15.2) H 07/08/19 04:00 Plt Count 387 K/mm3 (140-440) 07/08/19 04:00 Lymph % (Auto) 8.3 % (13.4-35.0) L 07/01/19 07:58 [place] % (Auto) 10.0 % (0.0-7.3) H 07/01/19 07:58 Eos % (Auto) 1.5 % (0.0-4.3) 07/01/19 07:58 Baso % (Auto) 0.8 % (0.0-1.8) 07/01/19 07:58 Lymph # 0.9 K/mm3 (1.2-5.4) L 07/01/19 07:58 [place] # 1.2 K/mm3 (0.0-0.8) H 07/01/19 07:58 Eos # 0.2 K/mm3 (0.0-0.4) 07/01/19 07:58 Baso # 0.1 K/mm3 (0.0-0.1) 07/01/19 07:58 Add Manual Diff Complete 07/08/19 04:00 Total Counted 100 07/08/19 04:00 Seg Neutrophils % 79.4 % (40.0-70.0) H 07/01/19 07:58 Seg Neuts % (Manual) 76.0 % (40.0-70.0) H 07/08/19 04:00 Band Neutrophils % 0 % 07/08/19 04:00 Lymphocytes % (Manual) 16.0 % (13.4-35.0) 07/08/19 04:00 Reactive Lymphs % (Man) 0 % 07/08/19 04:00 Monocytes % (Manual) 6.0 % (0.0-7.3) 07/08/19 04:00 Eosinophils % (Manual) 2.0 % (0.0-4.3) 07/08/19 04:00 Basophils % (Manual) 0 % (0.0-1.8) 07/08/19 04:00 Metamyelocytes % 0 % 07/08/19 04:00 Myelocytes % 0 % 07/08/19 04:00 Promyelocytes % 0 % 07/08/19 04:00 Blast Cells % 0 % 07/08/19 04:00 Nucleated RBC % Not Reportable 07/08/19 04:00 Seg Neutrophils # 9.1 K/mm3 (1.8-7.7) H 07/01/19 07:58 Seg Neutrophils # Man 8.4 K/mm3 (1.8-7.7) H 07/08/19 04:00 Band Neutrophils # 0.0 K/mm3 07/08/19 04:00 Lymphocytes # (Manual) 1.8 K/mm3 (1.2-5.4) 07/08/19 04:00 Abs React Lymphs (Man) 0.0 K/mm3 07/08/19 04:00 Monocytes # (Manual) 0.7 K/mm3 (0.0-0.8) 07/08/19 04:00 Eosinophils # (Manual) 0.2 K/mm3 (0.0-0.4) 07/08/19 04:00 Basophils # (Manual) 0.0 K/mm3 (0.0-0.1) 07/08/19 04:00 Metamyelocytes # 0.0 K/mm3 07/08/19 04:00 Myelocytes # 0.0 K/mm3 07/08/19 04:00 Promyelocytes # 0.0 K/mm3 07/08/19 04:00 Blast Cells # 0.0 K/mm3 07/08/19 04:00 WBC Morphology Not Reportable 07/08/19 04:00 Hypersegmented Neuts Not Reportable 07/08/19 04:00 Hyposegmented Neuts Not Reportable 07/08/19 04:00 Hypogranular Neuts Not Reportable 07/08/19 04:00 Smudge Cells Not Reportable 07/08/19 04:00 Toxic Granulation Not Reportable 07/08/19 04:00 Toxic Vacuolation Not Reportable 07/08/19 04:00 Dohle Bodies Not Reportable 07/08/19 04:00 Pelger-Huet Anomaly Not Reportable 07/08/19 04:00 Renea Rods Not Reportable 07/08/19 04:00 Platelet Estimate Consistent w auto 07/08/19 04:00 Clumped Platelets Not Reportable 07/08/19 04:00 Plt Clumps, EDTA Not Reportable 07/08/19 04:00 Large Platelets Not Reportable 07/08/19 04:00 Giant Platelets Not Reportable 07/08/19 04:00 Platelet Satelliting Not Reportable 07/08/19 04:00 Plt Morphology Comment Not Reportable 07/08/19 04:00 RBC Morphology Not Reportable 07/08/19 04:00 Dimorphic RBCs Not Reportable 07/08/19 04:00 Polychromasia Not Reportable 07/08/19 04:00 Hypochromasia Not Reportable 07/08/19 04:00 Poikilocytosis Not Reportable 07/08/19 04:00 Anisocytosis 1+ 07/08/19 04:00 Microcytosis Not Reportable 07/08/19 04:00 Macrocytosis Not Reportable 07/08/19 04:00 Spherocytes Not Reportable 07/08/19 04:00 Pappenheimer Bodies Not Reportable 07/08/19 04:00 Sickle Cells Not Reportable 07/08/19 04:00 Target Cells Not Reportable 07/08/19 04:00 Tear Drop Cells Not Reportable 07/08/19 04:00 Ovalocytes Not Reportable 07/08/19 04:00 Stomatocytes 3+ 06/23/19 05:24 Helmet Cells Not Reportable 07/08/19 04:00 [place] Bodies Not Reportable 07/08/19 04:00 [place] Rings Not Reportable 07/08/19 04:00 [place] Cells Not Reportable 07/08/19 04:00 Bite Cells Not Reportable 07/08/19 04:00 Crenated Cell Not Reportable 07/08/19 04:00 Elliptocytes Not Reportable 07/08/19 04:00 Acanthocytes (Spur) Not Reportable 07/08/19 04:00 Rouleaux Not Reportable 07/08/19 04:00 Hemoglobin C Crystals Not Reportable 07/08/19 04:00 Schistocytes Not Reportable 07/08/19 04:00 Malaria parasites Not Reportable 07/08/19 04:00 Syed Bodies Not Reportable 07/08/19 04:00 Hem Pathologist Commnt No 07/08/19 04:00 PT 15.4 Sec. (12.2-14.9) H 05/01/19 Unknown INR 1.23 (0.87-1.13) H 05/01/19 Unknown APTT 22.7 Sec. (24.2-36.6) L 05/01/19 Unknown Fibrinogen 194 mg/dl (211-480) L 06/17/19 12:45 Heparin Anti-Xa, Unfract Negative (Negative) 06/17/19 12:45 POC ABG pH 7.462 (7.35-7.45) H 06/05/19 03:52 ABG pH 7.469 pH Units (7.350-7.450) H 06/23/19 02:00 POC ABG pCO2 39.8 (35-45) 06/05/19 03:52 ABG pCO2 39.4 mm Hg 06/23/19 02:00 POC ABG pO2 86 (80-105) 06/05/19 03:52 ABG pO2 58.7 mm Hg (80.0-90.0) L 06/23/19 02:00 POC ABG HCO3 28.4 (22-26 mml/L) 06/05/19 03:52 ABG HCO3 28.0 mmol/L (20.0-26.0) H 06/23/19 02:00 POC ABG Total CO2 30 (23-27mmol/L) 06/05/19 03:52 POC ABG O2 Sat 97 06/05/19 03:52 ABG O2 Saturation 94.6 % (95.0-99.0) L 06/23/19 02:00 ABG O2 Content 9.2 (0.0-44) 06/23/19 02:00 POC ABG Base Excess 5 ((-2) - (+3)mmol/L) 06/05/19 03:52 ABG Base Excess 4.0 mmol/L (-2.0-3.0) H 06/23/19 02:00 ABG Hemoglobin 7.1 gm/dl (14.0-18.0) L 06/23/19 02:00 ABG Carboxyhemoglobin 2.0 % (0.0-5.0) 06/23/19 02:00 ABG Methemoglobin 0.5 % (0.0-1.5) 06/23/19 02:00 Oxyhemoglobin 92.2 % (95.0-99.0) L 06/23/19 02:00 FiO2 30 % 06/23/19 02:00 Sodium 141 mmol/L (137-145) 07/08/19 04:00 Potassium 4.3 mmol/L (3.6-5.0) 07/08/19 04:00 Chloride 99.8 mmol/L (98-107) 07/08/19 04:00 Carbon Dioxide 24 mmol/L (22-30) 07/08/19 04:00 Anion Gap 22 mmol/L 07/08/19 04:00 BUN 12 mg/dL (9-20) 07/08/19 04:00 Creatinine 0.5 mg/dL (0.8-1.5) L 07/08/19 04:00 Estimated GFR > 60 ml/min 07/08/19 04:00 BUN/Creatinine Ratio 24 % 07/08/19 04:00 Glucose 117 mg/dL (75-100) H 07/08/19 04:00 POC Glucose 114 (70-105) H 07/10/19 05:28 Osmolality 327 Mosm/kg 05/07/19 13:45 Uric Acid 18.0 mg/dL (3.5-7.6) H 05/07/19 13:45 Calcium 8.8 mg/dL (8.4-10.2) 07/08/19 04:00 Phosphorus 3.70 mg/dL (2.5-4.5) 06/10/19 05:45 Magnesium 1.60 mg/dL (1.7-2.3) L 06/26/19 04:43 Iron 45 ug/dL (49-181) L 06/20/19 09:12 TIBC 110 mcg/dL (250-450) L 06/20/19 09:12 Ferritin 315.2 ng/mL (13.0-400.0) 06/20/19 09:12 Total Bilirubin 0.50 mg/dL (0.1-1.2) 06/08/19 04:20 AST 23 units/L (5-40) 06/08/19 04:20 ALT 66 units/L (7-56) H 06/08/19 04:20 Alkaline Phosphatase 59 units/L (35-129) 06/08/19 04:20 Total Creatine Kinase 131 units/L (55-170) 05/02/19 04:41 CK-MB (CK-2) 5.2 ng/mL (0.0-4.0) H 05/02/19 04:41 CK-MB (CK-2) Rel Index 3.9 (0-4) 05/02/19 04:41 Troponin T 0.067 ng/mL (0.00-0.029) H D 05/02/19 04:41 NT-Pro-B Natriuret Pep 6831 pg/mL (0-450) H 05/01/19 Unknown Total Protein 5.5 g/dL (6.3-8.2) L 06/08/19 04:20 Albumin 2.9 g/dL (3.9-5) L 06/08/19 04:20 Albumin/Globulin Ratio 1.1 % 06/08/19 04:20 Triglycerides 210 mg/dL (2-149) H 06/19/19 04:30 Cholesterol 173 mg/dL (50-199) 05/02/19 00:06 LDL Cholesterol Direct 126 mg/dL (50-130) 05/02/19 00:06 HDL Cholesterol 18 mg/dL (40-59) L 05/02/19 00:06 Cholesterol/HDL Ratio 9.61 % 05/02/19 00:06 Serotonin Release Assay See scanned results 06/17/19 12:45 Vitamin B12 353.0 pg/mL (211-911) 06/20/19 09:12 Folate 7.01 ng/mL (7.3-26.0) L 06/20/19 09:12 Procalcitonin 0.05 ng/mL (<0.15) 06/17/19 12:45 Urine Color Yellow (Yellow) 06/17/19 12:45 Urine Turbidity Slightly-cloudy (Clear) 06/17/19 12:45 Urine pH 5.0 (5.0-7.0) 06/17/19 12:45 Ur Specific [place] 1.013 (1.003-1.030) 06/17/19 12:45 Urine Protein <15 mg/dl mg/dL (Negative) 06/17/19 12:45 Urine Glucose (UA) Neg mg/dL (Negative) 06/17/19 12:45 Urine Ketones Neg mg/dL (Negative) 06/17/19 12:45 Urine Blood Sm (Negative) 06/17/19 12:45 Urine Nitrite Neg (Negative) 06/17/19 12:45 Urine Bilirubin Neg (Negative) 06/17/19 12:45 Urine Urobilinogen < 2.0 mg/dL (<2.0) 06/17/19 12:45 Ur Leukocyte Esterase Neg (Negative) 06/17/19 12:45 Urine WBC (Auto) 2.0 /HPF (0.0-6.0) 06/17/19 12:45 Urine RBC (Auto) 2.0 /HPF (0.0-6.0) 06/17/19 12:45 U Epithel Cells (Auto) < 1.0 /HPF (0-13.0) 06/17/19 12:45 Urine Bacteria (Auto) 1+ /HPF (Negative) 05/20/19 12:00 Uric Acid Crystals 3+ 05/03/19 10:55 Urine Mucus Few /HPF 06/17/19 12:45 Urine Yeast (Budding) 3+ /HPF 05/20/19 12:00 Urine Creatinine 292.8 mg/dL (0.1-20.0) H 05/07/19 22:40 Urine Sodium 11 mmol/L 05/07/19 22:40 Urine Total Protein 269 mg/dL (5-11.8) H 05/07/19 22:40 Vancomycin Trough 20.5 ug/mL (5.0-20.0) H 05/15/19 09:00 Random Vancomycin 11.5 ug/mL (0-40.0) 05/27/19 06:00 AMNA Screen Negative (Negative) 05/07/19 13:45 Heparin-induced Plt Ab Negative (Negative) 06/17/19 12:45 UF Heparin High Dose 13 % Release 01/23/20 12:45 YUNG UFH Low Dose 0.1 8 % Release 06/17/19 12:45 YUNG UFH Low Dose 0.5 7 % Release 06/17/19 12:45 Hepatitis A IgM Ab Non-reactive (NonReactive) 05/07/19 13:45 Hep Bs Antigen Non-reactive (Negative) 05/07/19 13:45 Hep B Core IgM Ab Non-reactive (NonReactive) 05/07/19 13:45 Hepatitis C Antibody Non-reactive (NonReactive) 05/07/19 13:45 Influenza A (Rapid) Negative (Negative) 06/17/19 11:35 Influenza B (Rapid) Negative (Negative) 06/17/19 11:35 Active Medications - Current Medications Current Medications: Generic Name Dose Route Start Last Admin Trade Name Freq PRN Reason Stop Dose Admin Acetaminophen 650 mg 07/02/19 23:56 07/09/19 23:22 Tylenol PO 650 mg Q4H PRN Administration Pain, Mild (1-3) Amlodipine Besylate 10 mg 06/25/19 11:00 07/10/19 09:29 Amlodipine PO 10 mg DAILY VICKEY Administration Lipase/Protease/Amylase 1 each 05/14/19 15:01 Pancreaze 10,500 Unit FEEDTUBE PRN PRN For Clogged Feeding Tube Apixaban 2.5 mg 06/23/19 22:00 07/10/19 09:26 Eliquis PO 2.5 mg Q12HR VICKEY Administration Protocol Dextrose 50 gm 05/01/19 20:24 D50w (25gm) Vial IV Q30MIN PRN Hypoglycemia Protocol Famotidine 20 mg 06/17/19 10:00 07/10/19 09:27 Pepcid PO 20 mg BID VICKEY Administration Ferrous Sulfate 308 mg 06/18/19 12:00 07/10/19 09:28 Ferrous Sulfate PO 308 mg QDAY VICKEY Administration Hydrochlorothiazide 25 mg 06/26/19 11:00 07/10/19 09:26 Hctz PO 25 mg QDAY VICKEY Administration Hydrophilic Ointment 1 applic 06/16/19 17:34 Vaseline Lip Therapy TP Q2HR PRN Dry Lips Insulin Human Lispro 0 unit 06/01/19 14:00 07/10/19 06:11 Humalog SUB-Q Not Given Q6HR [facility] Protocol Labetalol HCl 10 mg 06/11/19 22:48 06/29/19 04:24 Labetalol IV 10 mg Q4H PRN Administration BP >170/105; hold for HR <60 Labetalol HCl 200 mg 06/28/19 10:00 07/10/19 06:10 Labetalol PO 200 mg Q8HR VICKEY Administration Multi-Ingred Cream/Lotion/Oil/Oint 1 applic 06/16/19 18:00 Artificial Tears Ophth Oint OU Q4HR PRN Dry Eye(s) Multivitamins 5 ml 06/29/19 12:00 07/10/19 09:26 Centrum Liq PO 5 ml QDAY VICKEY Administration Potassium Chloride 40 meq 06/19/19 10:00 07/10/19 09:27 Potassium Chloride FEEDTUBE 40 meq QDAY VICKEY Administration Scopolamine 1 each 06/27/19 09:00 07/09/19 09:24 Transderm-Scop TD 1 each Q3D VICKEY Administration Simple Syrup 15 ml 05/14/19 15:01 Simple Syrup FEEDTUBE PRN PRN Hypoglycemia Simple Syrup 30 ml 05/14/19 15:01 Simple Syrup FEEDTUBE PRN PRN Hypoglycemia Sodium Bicarbonate 325 mg 05/14/19 15:01 Sodium Bicarbonate FEEDTUBE PRN PRN For Clogged Feeding Tube Nutrition/Malnutrition Assess - Dietary Evaluation Nutrition/Malnutrition Findings: Nutrition Notes Start: 05/04/19 12:54 Freq: Status: Active Protocol: Document 07/08/19 09:59 CT (Rec: 07/08/19 10:02 CT [id number]) Co-Sign 07/08/19 09:59 LP Nutrition Notes Initial or Follow up Reassessment Current Diagnosis Acute Kidney Injury,Sepsis, Respiratory Failure Other Pertinent Diagnosis HD Current Diet Osmolite 1.5 at 60 ml/hr Labs/Tests Cr 0.5 Glu 117 Pertinent Medications Humalog Height 6 ft 4 in Weight 189.8 kg [place] Body Weight (kg) 91.81 BMI 50.9 Weight Status Morbidly Obese Subjective/Other Information Osmolite running at 60 ml/hr at time of visit. Pt tolerating TF. Percent of energy/protein needs met: 100%/100% Burn Absent Trauma Absent GI Symptoms None Current % PO Negligible Minimum of two criteria No Fluid Accumulation Moderate to Severe (severe) #1 Nutrition Diagnosis Inadequate oral intake Diagnosis Progress(for reassessment Continues documentation) Is patient on ventilator? Yes Is Patient Ambulatory and/or Out of Bed No REE-([place]-St. Jeor-confined to bed) 3534.288 Kcal/Kg value to use for calculation 11 Approximate Energy Requirements Using 8 kcal/Kg Calculation Used for Recommendations Kcal/kg Additional Notes PRO needs: 73-91g (0.8-1 g/kg IBW 91kg CARLA resolved) Fluid needs: 1 ml/kcal Nutrition Intervention Change Diet Order: Continue TF Nutrition Support: Osmolite at 60 ml/hr Flush 400ml q4h for hypernatremia. And 200ml q4h once resolved Kcal 2,160 Protein (gm) 90 Fluid (mL) 1,097 Goal #1 TF tolerance Goal #2 Meet at least 80% of PRO/kcal needs via TF Anticipated Discharge Needs: Unable to determine at this time Follow-Up By: 07/15/19 Additional Comments F/U for TF tolerance
[2019-07-11] MEDS: INSULIN LISPRO 100 UNIT/ML SUB-Q SCH ×4 (00:22→18:00)
[2019-07-11 06:55] LABS: Hematocrit 28.6 % (35.5-45.6); Hemoglobin 9.2 gm/dl (11.8-15.2); Mean Corpuscular HGB Conc 32 % (32-34); Mean Corpuscular Volume 88 fl (84-94); Platelet Count 268 K/mm3 (140-440); Red Blood Count 3.26 M/mm3 (3.65-5.03); Red Cell Distribution Width 19.6 % (13.2-15.2)
[2019-07-11 07:19] LABS: BUN/Creatinine Ratio 11; Blood Urea Nitrogen 9 mg/dL (9-20); Calcium 9.6 mg/dL (8.4-10.2); Hemolysis Index 31
--- NOTE | 2019-07-11 08:52 | Progress Note ---
Assessment and Plan Assessment and plan: /Febrile illness - spiking low grade temp intermittently - Internal jugular tunneled hemodialysis catheter removed - negative blood Cx and UA - ID following, monitor off abx /Acute respiratory failure; vent dependent/status post trach and PEG Off ventilatory support, on T-piece, cont trach care, scheduled nebulizers Pulmonary critical following /Obesity hypoventilation syndrome Status post tracheostomy, titrate O2 sats to more than 90% /Status post cardiac arrest mild anoxic brain injury patient's mentation is improved - able to follow commend EEG was negative for seizures and neurology evaluated /Severe malnutrition Dysphasia; dw with his mom, she is agreeable to PEG tube, GS consulted Dietitian input appreciated, continue tube feeds /Anemia of chronic disease : Closely monitor H&H and transfuse as needed. 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 Now Patient is on Eliquis /-Acute kidney injury due to ATN : Requiring dialysis Resolved, nephrology following. /Hypernatremia/Hypokalemia/ hypomagnesemia: Resolved /Morbid obesity; will need weight loss program upon discharge /DVT prophylaxis; scd /Eliquis Plan of care discussed with the patient and his nurse Physical therapy/occupational therapy when patient is stable Disposition ; home with home health versus placement when patient is stable. Social and insurance issues. History Interval history: patient with resp failure s/p trach and PEG Hospitalist Physical - Physical exam Narrative exam: Gen: Not in acute distress, morbidly obese HEENT: Normocephalic, atraumatic Neck: supple, no JVD,tracheostomy Heart: S1 and S2 reg, no murmurs, rubs or gallop Lungs: Clear to auscultation bilaterally, no wheeze Abd: soft, NT, non distended, normal bowel sounds,PEG Ext:No edema, no cyanosis - Constitutional Vitals: Temp Pulse Resp BP Pulse Ox 99.7 F H 114 H 16 129/74 98 07/11/19 04:00 07/11/19 06:00 07/11/19 06:00 07/11/19 06:00 07/11/19 08:34 General appearance: Present: obese, other (tracheostomy /T-piece) Results - Labs CBC & Chem 7: 07/11/19 06:08 07/11/19 06:08 Labs: Laboratory Last Values WBC 12.6 K/mm3 (4.5-11.0) H 07/11/19 06:08 RBC 3.26 M/mm3 (3.65-5.03) L 07/11/19 06:08 Hgb 9.2 gm/dl (11.8-15.2) L 07/11/19 06:08 Hct 28.6 % (35.5-45.6) L 07/11/19 06:08 MCV 88 fl (84-94) 07/11/19 06:08 MCH 28 pg (28-32) 07/11/19 06:08 MCHC 32 % (32-34) 07/11/19 06:08 RDW 19.6 % (13.2-15.2) H 07/11/19 06:08 Plt Count 268 K/mm3 (140-440) 07/11/19 06:08 Lymph % (Auto) 8.3 % (13.4-35.0) L 07/01/19 07:58 Potter % (Auto) 10.0 % (0.0-7.3) H 07/01/19 07:58 Eos % (Auto) 1.5 % (0.0-4.3) 07/01/19 07:58 Baso % (Auto) 0.8 % (0.0-1.8) 07/01/19 07:58 Lymph # 0.9 K/mm3 (1.2-5.4) L 07/01/19 07:58 Potter # 1.2 K/mm3 (0.0-0.8) H 07/01/19 07:58 Eos # 0.2 K/mm3 (0.0-0.4) 07/01/19 07:58 Baso # 0.1 K/mm3 (0.0-0.1) 07/01/19 07:58 Add Manual Diff Complete 07/08/19 04:00 Total Counted 100 07/08/19 04:00 Seg Neutrophils % 79.4 % (40.0-70.0) H 07/01/19 07:58 Seg Neuts % (Manual) 76.0 % (40.0-70.0) H 07/08/19 04:00 Band Neutrophils % 0 % 07/08/19 04:00 Lymphocytes % (Manual) 16.0 % (13.4-35.0) 07/08/19 04:00 Reactive Lymphs % (Man) 0 % 07/08/19 04:00 Monocytes % (Manual) 6.0 % (0.0-7.3) 07/08/19 04:00 Eosinophils % (Manual) 2.0 % (0.0-4.3) 07/08/19 04:00 Basophils % (Manual) 0 % (0.0-1.8) 07/08/19 04:00 Metamyelocytes % 0 % 07/08/19 04:00 Myelocytes % 0 % 07/08/19 04:00 Promyelocytes % 0 % 07/08/19 04:00 Blast Cells % 0 % 07/08/19 04:00 Nucleated RBC % Not Reportable 07/08/19 04:00 Seg Neutrophils # 9.1 K/mm3 (1.8-7.7) H 07/01/19 07:58 Seg Neutrophils # Man 8.4 K/mm3 (1.8-7.7) H 07/08/19 04:00 Band Neutrophils # 0.0 K/mm3 07/08/19 04:00 Lymphocytes # (Manual) 1.8 K/mm3 (1.2-5.4) 07/08/19 04:00 Abs React Lymphs (Man) 0.0 K/mm3 07/08/19 04:00 Monocytes # (Manual) 0.7 K/mm3 (0.0-0.8) 07/08/19 04:00 Eosinophils # (Manual) 0.2 K/mm3 (0.0-0.4) 07/08/19 04:00 Basophils # (Manual) 0.0 K/mm3 (0.0-0.1) 07/08/19 04:00 Metamyelocytes # 0.0 K/mm3 07/08/19 04:00 Myelocytes # 0.0 K/mm3 07/08/19 04:00 Promyelocytes # 0.0 K/mm3 07/08/19 04:00 Blast Cells # 0.0 K/mm3 07/08/19 04:00 WBC Morphology Not Reportable 07/08/19 04:00 Hypersegmented Neuts Not Reportable 07/08/19 04:00 Hyposegmented Neuts Not Reportable 07/08/19 04:00 Hypogranular Neuts Not Reportable 07/08/19 04:00 Smudge Cells Not Reportable 07/08/19 04:00 Toxic Granulation Not Reportable 07/08/19 04:00 Toxic Vacuolation Not Reportable 07/08/19 04:00 Dohle Bodies Not Reportable 07/08/19 04:00 Pelger-Huet Anomaly Not Reportable 07/08/19 04:00 Renea Rods Not Reportable 07/08/19 04:00 Platelet Estimate Consistent w auto 07/08/19 04:00 Clumped Platelets Not Reportable 07/08/19 04:00 Plt Clumps, EDTA Not Reportable 07/08/19 04:00 Large Platelets Not Reportable 07/08/19 04:00 Giant Platelets Not Reportable 07/08/19 04:00 Platelet Satelliting Not Reportable 07/08/19 04:00 Plt Morphology Comment Not Reportable 07/08/19 04:00 RBC Morphology Not Reportable 07/08/19 04:00 Dimorphic RBCs Not Reportable 07/08/19 04:00 Polychromasia Not Reportable 07/08/19 04:00 Hypochromasia Not Reportable 07/08/19 04:00 Poikilocytosis Not Reportable 07/08/19 04:00 Anisocytosis 1+ 07/08/19 04:00 Microcytosis Not Reportable 07/08/19 04:00 Macrocytosis Not Reportable 07/08/19 04:00 Spherocytes Not Reportable 07/08/19 04:00 Pappenheimer Bodies Not Reportable 07/08/19 04:00 Sickle Cells Not Reportable 07/08/19 04:00 Target Cells Not Reportable 07/08/19 04:00 Tear Drop Cells Not Reportable 07/08/19 04:00 Ovalocytes Not Reportable 07/08/19 04:00 Stomatocytes 3+ 06/23/19 05:24 Helmet Cells Not Reportable 07/08/19 04:00 [place] Bodies Not Reportable 07/08/19 04:00 [place] Rings Not Reportable 07/08/19 04:00 Dennis Cells Not Reportable 07/08/19 04:00 Bite Cells Not Reportable 07/08/19 04:00 Crenated Cell Not Reportable 07/08/19 04:00 Elliptocytes Not Reportable 07/08/19 04:00 Acanthocytes (Spur) Not Reportable 07/08/19 04:00 Rouleaux Not Reportable 07/08/19 04:00 Hemoglobin C Crystals Not Reportable 07/08/19 04:00 Schistocytes Not Reportable 07/08/19 04:00 Malaria parasites Not Reportable 07/08/19 04:00 Syed Bodies Not Reportable 07/08/19 04:00 Hem Pathologist Commnt No 07/08/19 04:00 PT 15.4 Sec. (12.2-14.9) H 05/01/19 Unknown INR 1.23 (0.87-1.13) H 05/01/19 Unknown APTT 22.7 Sec. (24.2-36.6) L 05/01/19 Unknown Fibrinogen 194 mg/dl (211-480) L 06/17/19 12:45 Heparin Anti-Xa, Unfract Negative (Negative) 06/17/19 12:45 POC ABG pH 7.462 (7.35-7.45) H 06/05/19 03:52 ABG pH 7.469 pH Units (7.350-7.450) H 06/23/19 02:00 POC ABG pCO2 39.8 (35-45) 06/05/19 03:52 ABG pCO2 39.4 mm Hg 06/23/19 02:00 POC ABG pO2 86 (80-105) 06/05/19 03:52 ABG pO2 58.7 mm Hg (80.0-90.0) L 06/23/19 02:00 POC ABG HCO3 28.4 (22-26 mml/L) 06/05/19 03:52 ABG HCO3 28.0 mmol/L (20.0-26.0) H 06/23/19 02:00 POC ABG Total CO2 30 (23-27mmol/L) 06/05/19 03:52 POC ABG O2 Sat 97 06/05/19 03:52 ABG O2 Saturation 94.6 % (95.0-99.0) L 06/23/19 02:00 ABG O2 Content 9.2 (0.0-44) 06/23/19 02:00 POC ABG Base Excess 5 ((-2) - (+3)mmol/L) 06/05/19 03:52 ABG Base Excess 4.0 mmol/L (-2.0-3.0) H 06/23/19 02:00 ABG Hemoglobin 7.1 gm/dl (14.0-18.0) L 06/23/19 02:00 ABG Carboxyhemoglobin 2.0 % (0.0-5.0) 06/23/19 02:00 ABG Methemoglobin 0.5 % (0.0-1.5) 06/23/19 02:00 Oxyhemoglobin 92.2 % (95.0-99.0) L 06/23/19 02:00 FiO2 30 % 06/23/19 02:00 Sodium 139 mmol/L (137-145) 07/11/19 06:08 Potassium 4.3 mmol/L (3.6-5.0) 07/11/19 06:08 Chloride 100.3 mmol/L (98-107) 07/11/19 06:08 Carbon Dioxide 17 mmol/L (22-30) L D 07/11/19 06:08 Anion Gap 26 mmol/L 07/11/19 06:08 BUN 9 mg/dL (9-20) 07/11/19 06:08 Creatinine 0.8 mg/dL (0.8-1.5) D 07/11/19 06:08 Estimated GFR > 60 ml/min 07/11/19 06:08 BUN/Creatinine Ratio 11 % 07/11/19 06:08 Glucose 117 mg/dL (75-100) H 07/11/19 06:08 POC Glucose 114 (70-105) H 07/11/19 05:27 Osmolality 327 Mosm/kg 05/07/19 13:45 Uric Acid 18.0 mg/dL (3.5-7.6) H 05/07/19 13:45 Calcium 9.6 mg/dL (8.4-10.2) 07/11/19 06:08 Phosphorus 3.70 mg/dL (2.5-4.5) 06/10/19 05:45 Magnesium 1.60 mg/dL (1.7-2.3) L 06/26/19 04:43 Iron 45 ug/dL (49-181) L 06/20/19 09:12 TIBC 110 mcg/dL (250-450) L 06/20/19 09:12 Ferritin 315.2 ng/mL (13.0-400.0) 06/20/19 09:12 Total Bilirubin 0.50 mg/dL (0.1-1.2) 06/08/19 04:20 AST 23 units/L (5-40) 06/08/19 04:20 ALT 66 units/L (7-56) H 06/08/19 04:20 Alkaline Phosphatase 59 units/L (35-129) 06/08/19 04:20 Total Creatine Kinase 131 units/L (55-170) 05/02/19 04:41 CK-MB (CK-2) 5.2 ng/mL (0.0-4.0) H 05/02/19 04:41 CK-MB (CK-2) Rel Index 3.9 (0-4) 05/02/19 04:41 Troponin T 0.067 ng/mL (0.00-0.029) H D 05/02/19 04:41 NT-Pro-B Natriuret Pep 6831 pg/mL (0-450) H 05/01/19 Unknown Total Protein 5.5 g/dL (6.3-8.2) L 06/08/19 04:20 Albumin 2.9 g/dL (3.9-5) L 06/08/19 04:20 Albumin/Globulin Ratio 1.1 % 06/08/19 04:20 Triglycerides 210 mg/dL (2-149) H 06/19/19 04:30 Cholesterol 173 mg/dL (50-199) 05/02/19 00:06 LDL Cholesterol Direct 126 mg/dL (50-130) 05/02/19 00:06 HDL Cholesterol 18 mg/dL (40-59) L 05/02/19 00:06 Cholesterol/HDL Ratio 9.61 % 05/02/19 00:06 Serotonin Release Assay See scanned results 06/17/19 12:45 Vitamin B12 353.0 pg/mL (211-911) 06/20/19 09:12 Folate 7.01 ng/mL (7.3-26.0) L 06/20/19 09:12 Procalcitonin 0.05 ng/mL (<0.15) 06/17/19 12:45 Urine Color Yellow (Yellow) 06/17/19 12:45 Urine Turbidity Slightly-cloudy (Clear) 06/17/19 12:45 Urine pH 5.0 (5.0-7.0) 06/17/19 12:45 Ur Specific [place] 1.013 (1.003-1.030) 06/17/19 12:45 Urine Protein <15 mg/dl mg/dL (Negative) 06/17/19 12:45 Urine Glucose (UA) Neg mg/dL (Negative) 06/17/19 12:45 Urine Ketones Neg mg/dL (Negative) 06/17/19 12:45 Urine Blood Sm (Negative) 06/17/19 12:45 Urine Nitrite Neg (Negative) 06/17/19 12:45 Urine Bilirubin Neg (Negative) 06/17/19 12:45 Urine Urobilinogen < 2.0 mg/dL (<2.0) 06/17/19 12:45 Ur Leukocyte Esterase Neg (Negative) 06/17/19 12:45 Urine WBC (Auto) 2.0 /HPF (0.0-6.0) 06/17/19 12:45 Urine RBC (Auto) 2.0 /HPF (0.0-6.0) 06/17/19 12:45 U Epithel Cells (Auto) < 1.0 /HPF (0-13.0) 06/17/19 12:45 Urine Bacteria (Auto) 1+ /HPF (Negative) 05/20/19 12:00 Uric Acid Crystals 3+ 05/03/19 10:55 Urine Mucus Few /HPF 06/17/19 12:45 Urine Yeast (Budding) 3+ /HPF 05/20/19 12:00 Urine Creatinine 292.8 mg/dL (0.1-20.0) H 05/07/19 22:40 Urine Sodium 11 mmol/L 05/07/19 22:40 Urine Total Protein 269 mg/dL (5-11.8) H 05/07/19 22:40 Vancomycin Trough 20.5 ug/mL (5.0-20.0) H 05/15/19 09:00 Random Vancomycin 11.5 ug/mL (0-40.0) 05/27/19 06:00 AMNA Screen Negative (Negative) 05/07/19 13:45 Heparin-induced Plt Ab Negative (Negative) 06/17/19 12:45 UF Heparin High Dose 13 % Release 06/17/19 12:45 YUNG UFH Low Dose 0.1 8 % Release 06/17/19 12:45 YUNG UFH Low Dose 0.5 7 % Release 06/17/19 12:45 Hepatitis A IgM Ab Non-reactive (NonReactive) 05/07/19 13:45 Hep Bs Antigen Non-reactive (Negative) 05/07/19 13:45 Hep B Core IgM Ab Non-reactive (NonReactive) 05/07/19 13:45 Hepatitis C Antibody Non-reactive (NonReactive) 05/07/19 13:45 Influenza A (Rapid) Negative (Negative) 06/17/19 11:35 Influenza B (Rapid) Negative (Negative) 06/17/19 11:35 Active Medications - Current Medications Current Medications: Generic Name Dose Route Start Last Admin Trade Name Freq PRN Reason Stop Dose Admin Acetaminophen 650 mg 07/02/19 23:56 07/09/19 23:22 Tylenol PO 650 mg Q4H PRN Administration Pain, Mild (1-3) Amlodipine Besylate 10 mg 06/25/19 11:00 07/10/19 09:29 Amlodipine PO 10 mg DAILY VICKEY Administration Lipase/Protease/Amylase 1 each 05/14/19 15:[address] 10,500 Unit FEEDTUBE PRN PRN For Clogged Feeding Tube Apixaban 2.5 mg 06/23/19 22:00 07/10/19 23:09 Eliquis PO 2.5 mg Q12HR VICKEY Administration Protocol Dextrose 50 gm 05/01/19 20:24 D50w (25gm) Vial IV Q30MIN PRN Hypoglycemia Protocol Famotidine 20 mg 06/17/19 10:00 07/10/19 23:10 Pepcid PO 20 mg BID VICKEY Administration Ferrous Sulfate 308 mg 06/18/19 12:00 07/10/19 09:28 Ferrous Sulfate PO 308 mg QDAY VICKEY Administration Hydrochlorothiazide 25 mg 06/26/19 11:00 07/10/19 09:26 Hctz PO 25 mg QDAY VICKEY Administration Hydrophilic Ointment 1 applic 06/16/19 17:34 Vaseline Lip Therapy TP Q2HR PRN Dry Lips Insulin Human Lispro 0 unit 06/01/19 14:00 07/11/19 07:29 Humalog SUB-Q Not Given Q6HR REPLACED BY [facility] Protocol Labetalol HCl 10 mg 06/11/19 22:48 06/29/19 04:24 Labetalol IV 10 mg Q4H PRN Administration BP >170/105; hold for HR <60 Labetalol HCl 200 mg 06/28/19 10:00 07/10/19 23:09 Labetalol PO 200 mg Q8HR VICKEY Administration Multi-Ingred Cream/Lotion/Oil/Oint 1 applic 06/16/19 18:00 Artificial Tears Ophth Oint OU Q4HR PRN Dry Eye(s) Multivitamins 5 ml 06/29/19 12:00 07/10/19 09:26 Centrum Liq PO 5 ml QDAY VICKEY Administration Potassium Chloride 40 meq 06/19/19 10:00 07/10/19 09:27 Potassium Chloride FEEDTUBE 40 meq QDAY VICKEY Administration Scopolamine 1 each 06/27/19 09:00 07/09/19 09:24 Transderm-Scop TD 1 each Q3D VICKEY Administration Simple Syrup 15 ml 05/14/19 15:01 Simple Syrup FEEDTUBE PRN PRN Hypoglycemia Simple Syrup 30 ml 05/14/19 15:01 Simple Syrup FEEDTUBE PRN PRN Hypoglycemia Sodium Bicarbonate 325 mg 05/14/19 15:01 Sodium Bicarbonate FEEDTUBE PRN PRN For Clogged Feeding Tube Nutrition/Malnutrition Assess - Dietary Evaluation Nutrition/Malnutrition Findings: Nutrition Notes Start: 05/04/19 12:54 Freq: Status: Active Protocol: Document 07/08/19 09:59 CT (Rec: 07/08/19 10:02 CT [id number]) Co-Sign 07/08/19 09:59 LP Nutrition Notes Initial or Follow up Reassessment Current Diagnosis Acute Kidney Injury,Sepsis, Respiratory Failure Other Pertinent Diagnosis HD Current Diet Osmolite 1.5 at 60 ml/hr Labs/Tests Cr 0.5 Glu 117 Pertinent Medications Humalog Height 6 ft 4 in Weight 189.8 kg [place] Body Weight (kg) 91.81 BMI 50.9 Weight Status Morbidly Obese Subjective/Other Information Osmolite running at 60 ml/hr at time of visit. Pt tolerating TF. Percent of energy/protein needs met: 100%/100% Burn Absent Trauma Absent GI Symptoms None Current % PO Negligible Minimum of two criteria No Fluid Accumulation Moderate to Severe (severe) #1 Nutrition Diagnosis Inadequate oral intake Diagnosis Progress(for reassessment Continues documentation) Is patient on ventilator? Yes Is Patient Ambulatory and/or Out of Bed No REE-([place]-confined to bed) 3534.288 Kcal/Kg value to use for calculation 11 Approximate Energy Requirements Using 8 kcal/Kg Calculation Used for Recommendations Kcal/kg Additional Notes PRO needs: 73-91g (0.8-1 g/kg IBW 91kg CARLA resolved) Fluid needs: 1 ml/kcal Nutrition Intervention Change Diet Order: Continue TF Nutrition Support: Osmolite at 60 ml/hr Flush 400ml q4h for hypernatremia. And 200ml q4h once resolved Kcal 2,160 Protein (gm) 90 Fluid (mL) 1,097 Goal #1 TF tolerance Goal #2 Meet at least 80% of PRO/kcal needs via TF Anticipated Discharge Needs: Unable to determine at this time Follow-Up By: 07/15/19 Additional Comments F/U for TF tolerance
[2019-07-11] MEDS: POTASSIUM CHLORIDE 20 MEQ PACKET FEEDTUBE SCH (10:52)
[2019-07-11] MEDS: amLODIPine 10 MG TAB PO SCH (10:53)
[2019-07-11] MEDS: hydroCHLOROthiazide 25 MG TAB PO SCH (10:54)
[2019-07-11] MEDS: FAMOTIDINE 20 MG TAB PO SCH ×2 (10:54→21:37)
[2019-07-11] MEDS: FERROUS SULFATE 308 MG (62mg Elemental Iron) / 7 ML ELIXIR PO SCH (10:54)
[2019-07-11] MEDS: APIXABAN 2.5 MG TAB PO SCH ×2 (10:54→21:37)
[2019-07-11] MEDS: MULTIVITAMINS 5 ML ORAL LIQUID PO SCH (10:54)
[2019-07-12] MEDS: INSULIN LISPRO 100 UNIT/ML SUB-Q SCH ×4 (02:31→18:23)
[2019-07-12] MEDS: APIXABAN 2.5 MG TAB PO SCH ×2 (10:00→22:49)
[2019-07-12] MEDS: amLODIPine 10 MG TAB PO SCH (11:14)
[2019-07-12] MEDS: FERROUS SULFATE 308 MG (62mg Elemental Iron) / 7 ML ELIXIR PO SCH (11:14)
[2019-07-12] MEDS: hydroCHLOROthiazide 25 MG TAB PO SCH (11:14)
[2019-07-12] MEDS: FAMOTIDINE 20 MG TAB PO SCH ×2 (11:15→22:49)
[2019-07-12] MEDS: POTASSIUM CHLORIDE 20 MEQ PACKET FEEDTUBE SCH (11:15)
[2019-07-12] MEDS: SCOPOLAMINE TRANSDERMAL PATCH 72 HR TD SCH (11:19)
--- NOTE | 2019-07-12 12:23 | Progress Note ---
Assessment and Plan Assessment and plan: /Febrile illness - spiking low grade temp intermittently - Internal jugular tunneled hemodialysis catheter removed - negative blood Cx and UA - ID following, monitor off abx Fever again since 07/09 Repeat blood cultures today /Acute respiratory failure; vent dependent/status post trach and PEG Off ventilatory support, on T-piece, cont trach care, scheduled nebulizers Pulmonary critical following /Obesity hypoventilation syndrome Status post tracheostomy, titrate O2 sats to more than 90% /Status post cardiac arrest mild anoxic brain injury patient's mentation is improved - able to follow commend EEG was negative for seizures and neurology evaluated /Severe malnutrition Dysphasia; dw with his mom, she is agreeable to PEG tube, GS consulted Dietitian input appreciated, continue tube feeds /Anemia of chronic disease : Closely monitor H&H and transfuse as needed. 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 Now Patient is on Eliquis /-Acute kidney injury due to ATN : Requiring dialysis Resolved, nephrology following. /Hypernatremia/Hypokalemia/ hypomagnesemia: Resolved /Morbid obesity; will need weight loss program upon discharge /DVT prophylaxis; scd /Eliquis Plan of care discussed with the patient and his nurse Physical therapy/occupational therapy when patient is stable Disposition ; home with home health versus placement when patient is stable. Social and insurance issues. 07/12/19:Fever, recurrent, low grade. Repeat blood cultures today. Follow blood cultures History Interval history: patient with resp failure s/p trach and PEG Fever Hospitalist Physical - Physical exam Narrative exam: Gen: Not in acute distress, morbidly obese HEENT: Normocephalic, atraumatic Neck: supple, no JVD,tracheostomy Heart: S1 and S2 reg, no murmurs, rubs or gallop Lungs: Clear to auscultation bilaterally, no wheeze Abd: soft, NT, non distended, normal bowel sounds,PEG Ext:No edema, no cyanosis Neuro: Awake, - Constitutional Vitals: Temp Pulse Resp BP Pulse Ox 100.1 F H 96 H 20 157/94 96 07/12/19 03:57 07/12/19 07:23 07/12/19 07:23 07/12/19 06:09 07/12/19 08:28 General appearance: Present: obese, other (tracheostomy /T-piece) Results - Labs CBC & Chem 7: 07/11/19 06:08 07/11/19 06:08 Labs: Laboratory Last Values WBC 12.6 K/mm3 (4.5-11.0) H 07/11/19 06:08 RBC 3.26 M/mm3 (3.65-5.03) L 07/11/19 06:08 Hgb 9.2 gm/dl (11.8-15.2) L 07/11/19 06:08 Hct 28.6 % (35.5-45.6) L 07/11/19 06:08 MCV 88 fl (84-94) 07/11/19 06:08 MCH 28 pg (28-32) 07/11/19 06:08 MCHC 32 % (32-34) 07/11/19 06:08 RDW 19.6 % (13.2-15.2) H 07/11/19 06:08 Plt Count 268 K/mm3 (140-440) 07/11/19 06:08 Lymph % (Auto) 8.3 % (13.4-35.0) L 07/01/19 07:58 [place] % (Auto) 10.0 % (0.0-7.3) H 07/01/19 07:58 Eos % (Auto) 1.5 % (0.0-4.3) 07/01/19 07:58 Baso % (Auto) 0.8 % (0.0-1.8) 07/01/19 07:58 Lymph # 0.9 K/mm3 (1.2-5.4) L 07/01/19 07:58 [place] # 1.2 K/mm3 (0.0-0.8) H 07/01/19 07:58 Eos # 0.2 K/mm3 (0.0-0.4) 07/01/19 07:58 Baso # 0.1 K/mm3 (0.0-0.1) 07/01/19 07:58 Add Manual Diff Complete 07/08/19 04:00 Total Counted 100 07/08/19 04:00 Seg Neutrophils % 79.4 % (40.0-70.0) H 07/01/19 07:58 Seg Neuts % (Manual) 76.0 % (40.0-70.0) H 07/08/19 04:00 Band Neutrophils % 0 % 07/08/19 04:00 Lymphocytes % (Manual) 16.0 % (13.4-35.0) 07/08/19 04:00 Reactive Lymphs % (Man) 0 % 07/08/19 04:00 Monocytes % (Manual) 6.0 % (0.0-7.3) 07/08/19 04:00 Eosinophils % (Manual) 2.0 % (0.0-4.3) 07/08/19 04:00 Basophils % (Manual) 0 % (0.0-1.8) 07/08/19 04:00 Metamyelocytes % 0 % 07/08/19 04:00 Myelocytes % 0 % 07/08/19 04:00 Promyelocytes % 0 % 07/08/19 04:00 Blast Cells % 0 % 07/08/19 04:00 Nucleated RBC % Not Reportable 07/08/19 04:00 Seg Neutrophils # 9.1 K/mm3 (1.8-7.7) H 07/01/19 07:58 Seg Neutrophils # Man 8.4 K/mm3 (1.8-7.7) H 07/08/19 04:00 Band Neutrophils # 0.0 K/mm3 07/08/19 04:00 Lymphocytes # (Manual) 1.8 K/mm3 (1.2-5.4) 07/08/19 04:00 Abs React Lymphs (Man) 0.0 K/mm3 07/08/19 04:00 Monocytes # (Manual) 0.7 K/mm3 (0.0-0.8) 07/08/19 04:00 Eosinophils # (Manual) 0.2 K/mm3 (0.0-0.4) 07/08/19 04:00 Basophils # (Manual) 0.0 K/mm3 (0.0-0.1) 07/08/19 04:00 Metamyelocytes # 0.0 K/mm3 07/08/19 04:00 Myelocytes # 0.0 K/mm3 07/08/19 04:00 Promyelocytes # 0.0 K/mm3 07/08/19 04:00 Blast Cells # 0.0 K/mm3 07/08/19 04:00 WBC Morphology Not Reportable 07/08/19 04:00 Hypersegmented Neuts Not Reportable 07/08/19 04:00 Hyposegmented Neuts Not Reportable 07/08/19 04:00 Hypogranular Neuts Not Reportable 07/08/19 04:00 Smudge Cells Not Reportable 07/08/19 04:00 Toxic Granulation Not Reportable 07/08/19 04:00 Toxic Vacuolation Not Reportable 07/08/19 04:00 Dohle Bodies Not Reportable 07/08/19 04:00 Pelger-Huet Anomaly Not Reportable 07/08/19 04:00 Renea Rods Not Reportable 07/08/19 04:00 Platelet Estimate Consistent w auto 07/08/19 04:00 Clumped Platelets Not Reportable 07/08/19 04:00 Plt Clumps, EDTA Not Reportable 07/08/19 04:00 Large Platelets Not Reportable 07/08/19 04:00 Giant Platelets Not Reportable 07/08/19 04:00 Platelet Satelliting Not Reportable 07/08/19 04:00 Plt Morphology Comment Not Reportable 07/08/19 04:00 RBC Morphology Not Reportable 07/08/19 04:00 Dimorphic RBCs Not Reportable 07/08/19 04:00 Polychromasia Not Reportable 07/08/19 04:00 Hypochromasia Not Reportable 07/08/19 04:00 Poikilocytosis Not Reportable 07/08/19 04:00 Anisocytosis 1+ 07/08/19 04:00 Microcytosis Not Reportable 07/08/19 04:00 Macrocytosis Not Reportable 07/08/19 04:00 Spherocytes Not Reportable 07/08/19 04:00 Pappenheimer Bodies Not Reportable 07/08/19 04:00 Sickle Cells Not Reportable 07/08/19 04:00 Target Cells Not Reportable 07/08/19 04:00 Tear Drop Cells Not Reportable 07/08/19 04:00 Ovalocytes Not Reportable 07/08/19 04:00 Stomatocytes 3+ 06/23/19 05:24 Helmet Cells Not Reportable 07/08/19 04:00 [place] Bodies Not Reportable 07/08/19 04:00 [place] Rings Not Reportable 07/08/19 04:00 [place] Cells Not Reportable 07/08/19 04:00 Bite Cells Not Reportable 07/08/19 04:00 Crenated Cell Not Reportable 07/08/19 04:00 Elliptocytes Not Reportable 07/08/19 04:00 Acanthocytes (Spur) Not Reportable 07/08/19 04:00 Rouleaux Not Reportable 07/08/19 04:00 Hemoglobin C Crystals Not Reportable 07/08/19 04:00 Schistocytes Not Reportable 07/08/19 04:00 Malaria parasites Not Reportable 07/08/19 04:00 Syed Bodies Not Reportable 07/08/19 04:00 Hem Pathologist Commnt No 07/08/19 04:00 PT 15.4 Sec. (12.2-14.9) H 05/01/19 Unknown INR 1.23 (0.87-1.13) H 05/01/19 Unknown APTT 22.7 Sec. (24.2-36.6) L 05/01/19 Unknown Fibrinogen 194 mg/dl (211-480) L 06/17/19 12:45 Heparin Anti-Xa, Unfract Negative (Negative) 06/17/19 12:45 POC ABG pH 7.462 (7.35-7.45) H 06/05/19 03:52 ABG pH 7.469 pH Units (7.350-7.450) H 06/23/19 02:00 POC ABG pCO2 39.8 (35-45) 06/05/19 03:52 ABG pCO2 39.4 mm Hg 06/23/19 02:00 POC ABG pO2 86 (80-105) 06/05/19 03:52 ABG pO2 58.7 mm Hg (80.0-90.0) L 06/23/19 02:00 POC ABG HCO3 28.4 (22-26 mml/L) 06/05/19 03:52 ABG HCO3 28.0 mmol/L (20.0-26.0) H 06/23/19 02:00 POC ABG Total CO2 30 (23-27mmol/L) 06/05/19 03:52 POC ABG O2 Sat 97 06/05/19 03:52 ABG O2 Saturation 94.6 % (95.0-99.0) L 06/23/19 02:00 ABG O2 Content 9.2 (0.0-44) 06/23/19 02:00 POC ABG Base Excess 5 ((-2) - (+3)mmol/L) 06/05/19 03:52 ABG Base Excess 4.0 mmol/L (-2.0-3.0) H 06/23/19 02:00 ABG Hemoglobin 7.1 gm/dl (14.0-18.0) L 06/23/19 02:00 ABG Carboxyhemoglobin 2.0 % (0.0-5.0) 06/23/19 02:00 ABG Methemoglobin 0.5 % (0.0-1.5) 06/23/19 02:00 Oxyhemoglobin 92.2 % (95.0-99.0) L 06/23/19 02:00 FiO2 30 % 06/23/19 02:00 Sodium 139 mmol/L (137-145) 07/11/19 06:08 Potassium 4.3 mmol/L (3.6-5.0) 07/11/19 06:08 Chloride 100.3 mmol/L (98-107) 07/11/19 06:08 Carbon Dioxide 17 mmol/L (22-30) L D 07/11/19 06:08 Anion Gap 26 mmol/L 07/11/19 06:08 BUN 9 mg/dL (9-20) 07/11/19 06:08 Creatinine 0.8 mg/dL (0.8-1.5) D 07/11/19 06:08 Estimated GFR > 60 ml/min 07/11/19 06:08 BUN/Creatinine Ratio 11 % 07/11/19 06:08 Glucose 117 mg/dL (75-100) H 07/11/19 06:08 POC Glucose 102 (70-105) 07/12/19 12:25 Osmolality 327 Mosm/kg 05/07/19 13:45 Uric Acid 18.0 mg/dL (3.5-7.6) H 05/07/19 13:45 Calcium 9.6 mg/dL (8.4-10.2) 07/11/19 06:08 Phosphorus 3.70 mg/dL (2.5-4.5) 06/10/19 05:45 Magnesium 1.60 mg/dL (1.7-2.3) L 06/26/19 04:43 Iron 45 ug/dL (49-181) L 06/20/19 09:12 TIBC 110 mcg/dL (250-450) L 06/20/19 09:12 Ferritin 315.2 ng/mL (13.0-400.0) 06/20/19 09:12 Total Bilirubin 0.50 mg/dL (0.1-1.2) 06/08/19 04:20 AST 23 units/L (5-40) 06/08/19 04:20 ALT 66 units/L (7-56) H 06/08/19 04:20 Alkaline Phosphatase 59 units/L (35-129) 06/08/19 04:20 Total Creatine Kinase 131 units/L (55-170) 05/02/19 04:41 CK-MB (CK-2) 5.2 ng/mL (0.0-4.0) H 05/02/19 04:41 CK-MB (CK-2) Rel Index 3.9 (0-4) 05/02/19 04:41 Troponin T 0.067 ng/mL (0.00-0.029) H D 05/02/19 04:41 NT-Pro-B Natriuret Pep 6831 pg/mL (0-450) H 05/01/19 Unknown Total Protein 5.5 g/dL (6.3-8.2) L 06/08/19 04:20 Albumin 2.9 g/dL (3.9-5) L 06/08/19 04:20 Albumin/Globulin Ratio 1.1 % 06/08/19 04:20 Triglycerides 210 mg/dL (2-149) H 06/19/19 04:30 Cholesterol 173 mg/dL (50-199) 05/02/19 00:06 LDL Cholesterol Direct 126 mg/dL (50-130) 05/02/19 00:06 HDL Cholesterol 18 mg/dL (40-59) L 05/02/19 00:06 Cholesterol/HDL Ratio 9.61 % 05/02/19 00:06 Serotonin Release Assay See scanned results 06/17/19 12:45 Vitamin B12 353.0 pg/mL (211-911) 06/20/19 09:12 Folate 7.01 ng/mL (7.3-26.0) L 06/20/19 09:12 Procalcitonin 0.05 ng/mL (<0.15) 06/17/19 12:45 Urine Color Yellow (Yellow) 06/17/19 12:45 Urine Turbidity Slightly-cloudy (Clear) 06/17/19 12:45 Urine pH 5.0 (5.0-7.0) 06/17/19 12:45 Ur Specific [place] 1.013 (1.003-1.030) 06/17/19 12:45 Urine Protein <15 mg/dl mg/dL (Negative) 06/17/19 12:45 Urine Glucose (UA) Neg mg/dL (Negative) 06/17/19 12:45 Urine Ketones Neg mg/dL (Negative) 06/17/19 12:45 Urine Blood Sm (Negative) 06/17/19 12:45 Urine Nitrite Neg (Negative) 06/17/19 12:45 Urine Bilirubin Neg (Negative) 06/17/19 12:45 Urine Urobilinogen < 2.0 mg/dL (<2.0) 06/17/19 12:45 Ur Leukocyte Esterase Neg (Negative) 06/17/19 12:45 Urine WBC (Auto) 2.0 /HPF (0.0-6.0) 06/17/19 12:45 Urine RBC (Auto) 2.0 /HPF (0.0-6.0) 06/17/19 12:45 U Epithel Cells (Auto) < 1.0 /HPF (0-13.0) 06/17/19 12:45 Urine Bacteria (Auto) 1+ /HPF (Negative) 05/20/19 12:00 Uric Acid Crystals 3+ 05/03/19 10:55 Urine Mucus Few /HPF 06/17/19 12:45 Urine Yeast (Budding) 3+ /HPF 05/20/19 12:00 Urine Creatinine 292.8 mg/dL (0.1-20.0) H 05/07/19 22:40 Urine Sodium 11 mmol/L 05/07/19 22:40 Urine Total Protein 269 mg/dL (5-11.8) H 05/07/19 22:40 Vancomycin Trough 20.5 ug/mL (5.0-20.0) H 05/15/19 09:00 Random Vancomycin 11.5 ug/mL (0-40.0) 05/27/19 06:00 AMNA Screen Negative (Negative) 05/07/19 13:45 Heparin-induced Plt Ab Negative (Negative) 06/17/19 12:45 UF Heparin High Dose 13 % Release 06/17/19 12:45 YUNG UFH Low Dose 0.1 8 % Release 06/17/19 12:45 YUNG UFH Low Dose 0.5 7 % Release 06/17/19 12:45 Hepatitis A IgM Ab Non-reactive (NonReactive) 05/07/19 13:45 Hep Bs Antigen Non-reactive (Negative) 05/07/19 13:45 Hep B Core IgM Ab Non-reactive (NonReactive) 05/07/19 13:45 Hepatitis C Antibody Non-reactive (NonReactive) 05/07/19 13:45 Influenza A (Rapid) Negative (Negative) 06/17/19 11:35 Influenza B (Rapid) Negative (Negative) 06/17/19 11:35 Active Medications - Current Medications Current Medications: Generic Name Dose Route Start Last Admin Trade Name Freq PRN Reason Stop Dose Admin Acetaminophen 650 mg 07/02/19 23:56 07/09/19 23:22 Tylenol PO 650 mg Q4H PRN Administration Pain, Mild (1-3) Amlodipine Besylate 10 mg 06/25/19 11:00 07/12/19 11:14 Amlodipine PO 10 mg DAILY VICKEY Administration Lipase/Protease/Amylase 1 each 05/14/19 15:01 Pancreaztanvir [place] 10,500 Unit FEEDTUBE PRN PRN For Clogged Feeding Tube Apixaban 2.5 mg 06/23/19 22:00 07/11/19 21:37 Eliquis PO 2.5 mg Q12HR VICKEY Administration Protocol Dextrose 50 gm 05/01/19 20:24 D50w (25gm) Vial IV Q30MIN PRN Hypoglycemia Protocol Famotidine 20 mg 06/17/19 10:00 07/12/19 11:15 Pepcid PO 20 mg BID VICKEY Administration Ferrous Sulfate 308 mg 06/18/19 12:00 07/12/19 11:14 Ferrous Sulfate PO 308 mg QDAY VICKEY Administration Hydrochlorothiazide 25 mg 06/26/19 11:00 07/12/19 11:14 Hctz PO 25 mg QDAY VICKEY Administration Hydrophilic Ointment 1 applic 06/16/19 17:34 Vaseline Lip Therapy TP Q2HR PRN Dry Lips Insulin Human Lispro 0 unit 06/01/19 14:00 07/12/19 06:08 Humalog SUB-Q Not Given Q6HR [facility] Protocol Labetalol HCl 10 mg 06/11/19 22:48 06/29/19 04:24 Labetalol IV 10 mg Q4H PRN Administration BP >170/105; hold for HR <60 Labetalol HCl 200 mg 06/28/19 10:00 07/12/19 06:09 Labetalol PO 200 mg Q8HR VICKEY Administration Multi-Ingred Cream/Lotion/Oil/Oint 1 applic 06/16/19 18:00 Artificial Tears Ophth Oint OU Q4HR PRN Dry Eye(s) Multivitamins 5 ml 06/29/19 12:00 07/11/19 10:54 Centrum Liq PO 5 ml QDAY VICKEY Administration Potassium Chloride 40 meq 06/19/19 10:00 07/12/19 11:15 Potassium Chloride FEEDTUBE 40 meq QDAY VICKEY Administration Scopolamine 1 each 06/27/19 09:00 07/12/19 11:19 Transderm-Scop TD 1 each Q3D VICKEY Administration Simple Syrup 15 ml 05/14/19 15:01 Simple Syrup FEEDTUBE PRN PRN Hypoglycemia Simple Syrup 30 ml 05/14/19 15:01 Simple Syrup FEEDTUBE PRN PRN Hypoglycemia Sodium Bicarbonate 325 mg 05/14/19 15:01 Sodium Bicarbonate FEEDTUBE PRN PRN For Clogged Feeding Tube Nutrition/Malnutrition Assess - Dietary Evaluation Nutrition/Malnutrition Findings: Nutrition Notes Start: 05/04/19 12:54 Freq: Status: Active Protocol: Document 07/08/19 09:59 CT (Rec: 07/08/19 10:02 CT [id number]) Co-Sign 07/08/19 09:59 LP Nutrition Notes Initial or Follow up Reassessment Current Diagnosis Acute Kidney Injury,Sepsis, Respiratory Failure Other Pertinent Diagnosis HD Current Diet Osmolite 1.5 at 60 ml/hr Labs/Tests Cr 0.5 Glu 117 Pertinent Medications Humalog Height 6 ft 4 in Weight 189.8 kg [place] Body Weight (kg) 91.81 BMI 50.9 Weight Status Morbidly Obese Subjective/Other Information Osmolite running at 60 ml/hr at time of visit. Pt tolerating TF. Percent of energy/protein needs met: 100%/100% Burn Absent Trauma Absent GI Symptoms None Current % PO Negligible Minimum of two criteria No Fluid Accumulation Moderate to Severe (severe) #1 Nutrition Diagnosis Inadequate oral intake Diagnosis Progress(for reassessment Continues documentation) Is patient on ventilator? Yes Is Patient Ambulatory and/or Out of Bed No [facility] 3534.288 Kcal/Kg value to use for calculation 11 Approximate Energy Requirements Using 2088 kcal/Kg Calculation Used for Recommendations Kcal/kg Additional Notes PRO needs: 73-91g (0.8-1 g/kg IBW 91kg CARLA resolved) Fluid needs: 1 ml/kcal Nutrition Intervention Change Diet Order: Continue TF Nutrition Support: Osmolite at 60 ml/hr Flush 400ml q4h for hypernatremia. And 200ml q4h once resolved Kcal 2,160 Protein (gm) 90 Fluid (mL) 1,097 Goal #1 TF tolerance Goal #2 Meet at least 80% of PRO/kcal needs via TF Anticipated Discharge Needs: Unable to determine at this time Follow-Up By: 07/15/19 Additional Comments F/U for TF tolerance
[2019-07-12] MEDS: MULTIVITAMINS 5 ML ORAL LIQUID PO SCH (15:02)
[2019-07-13 04:44] LABS: Hematocrit 27.4 % (35.5-45.6); Hemoglobin 8.8 gm/dl (11.8-15.2); Mean Corpuscular HGB Conc 32 % (32-34); Mean Corpuscular Volume 86 fl (84-94); Platelet Count 440 K/mm3 (140-440); Red Blood Count 3.18 M/mm3 (3.65-5.03); Red Cell Distribution Width 19.1 % (13.2-15.2)
[2019-07-13 05:06] LABS: BUN/Creatinine Ratio 18; Blood Urea Nitrogen 9 mg/dL (9-20); Calcium 9.6 mg/dL (8.4-10.2); Hemolysis Index 19
[2019-07-13] MEDS: INSULIN LISPRO 100 UNIT/ML SUB-Q SCH ×4 (05:10→18:29)
[2019-07-13] MEDS: ACETAMINOPHEN 325 MG TAB PO PRN (05:18)
[2019-07-13] MEDS: hydroCHLOROthiazide 25 MG TAB PO SCH (10:20)
[2019-07-13] MEDS: FAMOTIDINE 20 MG TAB PO SCH ×2 (10:20→22:50)
[2019-07-13] MEDS: amLODIPine 10 MG TAB PO SCH (10:20)
[2019-07-13] MEDS: FERROUS SULFATE 308 MG (62mg Elemental Iron) / 7 ML ELIXIR PO SCH (10:21)
[2019-07-13] MEDS: APIXABAN 2.5 MG TAB PO SCH ×2 (10:21→22:51)
[2019-07-13] MEDS: POTASSIUM CHLORIDE 20 MEQ PACKET FEEDTUBE SCH (10:21)
[2019-07-13] MEDS: MULTIVITAMINS 5 ML ORAL LIQUID PO SCH (10:52)
--- NOTE | 2019-07-13 11:50 | Progress Note ---
Assessment and Plan 34 y/o male with acute hypoxic, hypercapnic respiratory failure now with trach and uncontrolled hypertension. 07/13/2019: No new recs from today. Please see below. 07/10/2019: Continue PT/OT 07/09/2019: No new recs for today. Contiue PT/OT. Disposition is unknown secondary to lack of funding. 07/08/19: No new recs for today. Contiue PT/OT. Disposition is unknown secondary to lack of funding. 07/07/19. Stopping prednisone as this wasn't stopped over the weekend. Needs suctioning and asked that if transferred please place patient close as possible to nursing station. 07/06/19: Continue IMCU care. Requires frequent suctioning. PT/OT 07/02/19: Patient should not be transferred to the floor. Although his pulm status is stable, he is very high risk for decompensation and if the incident that happened last night, happened on the floor, that may have been his demise. Ok with right arm restraint for now. 07/01/2019: Continue current care. PT/OT. Work on discharge planning. steroids to 5 daily, will likely stop Friday or Friday. Stable but my concern is that if he goes to the floor, he will not get the proper suctioning needed. Will continue IMCU service 06/26/2019: Will discontinue vent from room. patient was placed on vent last night. Not sure why. Will place orders for continued T-piece. Appears he was doing well with no issues. If tolerates being off vent tonight, transition to step down tomorrow. Increase HCTZ to 25 06/25/2019: Continue T-piece today as tolerated. Only rest of vent if needed. If not needed tonight then will discontinue vent from room. Spoke with IR, and they will remove Perm cath today as this could be a cause of fevers. Follow up cultures and ID recs. Will increase Free H2O to [id number]. Change steroids to 10 PO starting tomorrow morning. Added scheduled BP meds. 06/24/2019: Will attempt T-piece later today, if tolerates, then will continue trial indefinitely. PT/OT will need to start seeing him again. Will drop steroids to 10 daily (PO) starting Friday morning. 06/23/2019: PSV all day today and tomorrow. Will start T-piece either tomorrow or Friday. Tolerating Feeds 06/22/2019: Patient scheduled for OR today. Plan as outlined in Dr. Saez's note from yesterday. Discussed with patient again this am. Really appreciate surgery help with this and the promptness of procedure. Will follow up post-op later today. 06/21/2019: Unfortunately re-intubated last week. Will need Trach and Peg, but I doubt peg will happen secondary to his size. Will discuss with surgery and maybe they can just put in a number 6 XLT from the start. I think he will get off the vent relatively quickly and can start to eat. This trach will be indefinite. I have explained this to him. I have not seen his family at the bedside during this admission but Im told they come in the evenings. 06/12/2019: Started HCTZ 50 daily and Labetalol 100 TID. Will increase Labetalol to 200 TID. Already on Clonidine patch. Continue Minoxidil. Will start to wean drip. PT/OT. Feeds through NG now that this is in place. Will need speech re-evaluation. Will order NT suctioning at least [id number] for the next 24 hours. 06/11/2019: Bipap at night and PRN. Na levels are increasing. Agree with D5W. Unable to place DH, several nurses tried. Will ask speech to come by and reassess now that patient is more willing to cooperate. . Continue PT/OT, sat up on side of bed yesterday. Continue IMCU monitoring for now. As stated below, patient was intubated for 37 days. CCT 31 minutes. Subjective Date of service: 07/13/19 Principal diagnosis: anemia - LOw PLT Interval history: No acute events. Objective Vital Signs - 12hr 07/13/19 07/13/19 07/13/19 00:00 00:45 02:00 Temperature Pulse Rate 90 97 H Pulse Rate [ 90 From Monitor] Respiratory 17 16 Rate Blood Pressure 143/114 153/106 O2 Sat by Pulse 96 99 Oximetry O2 Sat by Pulse 97 Oximetry [ Assessment] 07/13/19 07/13/19 07/13/19 03:52 04:00 04:47 Temperature 99.9 F H Pulse Rate 101 H Pulse Rate [ 98 H From Monitor] Respiratory 22 Rate Blood Pressure 153/106 O2 Sat by Pulse 96 96 Oximetry O2 Sat by Pulse Oximetry [ Assessment] 07/13/19 07/13/19 07/13/19 05:10 06:00 08:00 Temperature 99.2 F Pulse Rate 102 H 92 H Pulse Rate [ From Monitor] Respiratory Rate Blood Pressure 150/93 150/93 133/76 O2 Sat by Pulse 97 99 Oximetry O2 Sat by Pulse 95 Oximetry [ Assessment] 07/13/19 10:07 Temperature Pulse Rate Pulse Rate [ From Monitor] Respiratory Rate Blood Pressure O2 Sat by Pulse 95 Oximetry O2 Sat by Pulse Oximetry [ Assessment] Constitutional: other (morbidly obese male, critically ill on vent) Eyes: non-icteric ENT: oropharynx moist Neck: other (extremely large in circumference) Effort: normal Ascultation: Bilateral: diminished breath sounds (secondary to body habitus), rhonchi, other (Upper airway noises due to secretions) Cardiovascular: regular rate and rhythm (no mrg) Gastrointestinal: normoactive bowel sounds, soft, non-tender, other (obese) Integumentary: other (L hand is wrapped) Extremities: no cyanosis, pink and warm, other (1+ generalized edema) Neurologic: normal mental status, non-focal exam Psychiatric: mood appropriate, affect normal CBC and BMP: 07/13/19 03:55 07/13/19 03:55 ABG, PT/INR, D-dimer: ABG POC ABG pH 7.462 (7.35-7.45) H 06/05/19 03:52 ABG pH 7.469 pH Units (7.350-7.450) H 06/23/19 02:00 POC ABG pCO2 39.8 (35-45) 06/05/19 03:52 ABG pCO2 39.4 mm Hg 06/23/19 02:00 POC ABG pO2 86 (80-105) 06/05/19 03:52 ABG pO2 58.7 mm Hg (80.0-90.0) L 06/23/19 02:00 POC ABG HCO3 28.4 (22-26 mml/L) 06/05/19 03:52 POC ABG Total CO2 30 (23-27mmol/L) 06/05/19 03:52 POC ABG O2 Sat 97 06/05/19 03:52 ABG O2 Saturation 94.6 % (95.0-99.0) L 06/23/19 02:00 PT/INR, D-dimer PT 15.4 Sec. (12.2-14.9) H 05/01/19 Unknown INR 1.23 (0.87-1.13) H 05/01/19 Unknown Abnormal lab findings: Abnormal Labs 05/01/19 05/01/19 05/01/19 17:50 19:26 22:36 WBC RBC Hgb Hct MCV MCH MCHC RDW Plt Count Lymph % (Auto) [place] % (Auto) Eos % (Auto) Lymph # [place] # Eos # Seg Neutrophils % Seg Neuts % (Manual) Lymphocytes % (Manual) Monocytes % (Manual) Eosinophils % (Manual) Nucleated RBC % Seg Neutrophils # Seg Neutrophils # Man Lymphocytes # (Manual) Monocytes # (Manual) Eosinophils # (Manual) PT INR APTT Fibrinogen POC ABG pH 7.272 L 7.331 L ABG pH POC ABG pCO2 52.8 H POC ABG pO2 ABG pO2 ABG HCO3 ABG O2 Saturation ABG Base Excess ABG Hemoglobin Oxyhemoglobin Sodium 136 L Potassium 6.5 H* Chloride 97.2 L Carbon Dioxide BUN 60 H Creatinine Glucose 113 H POC Glucose Uric Acid Calcium Phosphorus Magnesium 2.40 H Iron TIBC AST 139 H ALT 154 H Total Creatine Kinase CK-MB (CK-2) Troponin T NT-Pro-B Natriuret Pep Total Protein Albumin 3.8 L Triglycerides HDL Cholesterol Folate Urine WBC (Auto) Urine Creatinine Urine Total Protein Vancomycin Trough 05/01/19 05/01/19 05/01/19 Unknown Unknown Unknown WBC 16.1 H RBC Hgb Hct MCV MCH MCHC RDW 17.2 H Plt Count Lymph % (Auto) [place] % (Auto) 9.6 H Eos % (Auto) Lymph # [place] # 1.5 H Eos # Seg Neutrophils % 73.0 H Seg Neuts % (Manual) Lymphocytes % (Manual) Monocytes % (Manual) Eosinophils % (Manual) Nucleated RBC % Seg Neutrophils # 11.7 H Seg Neutrophils # Man Lymphocytes # (Manual) Monocytes # (Manual) Eosinophils # (Manual) PT 15.4 H INR 1.23 H APTT 22.7 L Fibrinogen POC ABG pH ABG pH POC ABG pCO2 POC ABG pO2 ABG pO2 ABG HCO3 ABG O2 Saturation ABG Base Excess ABG Hemoglobin Oxyhemoglobin Sodium Potassium Chloride Carbon Dioxide BUN Creatinine Glucose POC Glucose Uric Acid Calcium Phosphorus Magnesium Iron TIBC AST ALT Total Creatine Kinase CK-MB (CK-2) Troponin T NT-Pro-B Natriuret Pep 6831 H Total Protein Albumin Triglycerides HDL Cholesterol Folate Urine WBC (Auto) Urine Creatinine Urine Total Protein Vancomycin Trough 05/01/19 05/02/19 05/02/19 Unknown 00:06 00:06 WBC RBC Hgb Hct MCV MCH MCHC RDW Plt Count Lymph % (Auto) [place] % (Auto) Eos % (Auto) Lymph # [place] # Eos # Seg Neutrophils % Seg Neuts % (Manual) Lymphocytes % (Manual) Monocytes % (Manual) Eosinophils % (Manual) Nucleated RBC % Seg Neutrophils # Seg Neutrophils # Man Lymphocytes # (Manual) Monocytes # (Manual) Eosinophils # (Manual) PT INR APTT Fibrinogen POC ABG pH ABG pH POC ABG pCO2 POC ABG pO2 ABG pO2 ABG HCO3 ABG O2 Saturation ABG Base Excess ABG Hemoglobin Oxyhemoglobin Sodium Potassium Chloride Carbon Dioxide BUN Creatinine Glucose POC Glucose Uric Acid Calcium Phosphorus 4.90 H Magnesium Iron TIBC AST ALT Total Creatine Kinase 226 H CK-MB (CK-2) 5.7 H Troponin T 0.044 H NT-Pro-B Natriuret Pep Total Protein Albumin Triglycerides 182 H HDL Cholesterol 18 L Folate Urine WBC (Auto) Urine Creatinine Urine Total Protein Vancomycin Trough 05/02/19 05/02/19 05/02/19 02:08 04:40 04:41 WBC 17.6 H RBC Hgb Hct MCV MCH 27 L MCHC RDW 17.4 H Plt Count Lymph % (Auto) 10.2 L [place] % (Auto) 11.0 H Eos % (Auto) Lymph # [place] # 1.9 H Eos # Seg Neutrophils % 78.0 H Seg Neuts % (Manual) Lymphocytes % (Manual) Monocytes % (Manual) Eosinophils % (Manual) Nucleated RBC % Seg Neutrophils # 13.8 H Seg Neutrophils # Man Lymphocytes # (Manual) Monocytes # (Manual) Eosinophils # (Manual) PT INR APTT Fibrinogen POC ABG pH ABG pH POC ABG pCO2 46.8 H POC ABG pO2 63 L ABG pO2 ABG HCO3 ABG O2 Saturation ABG Base Excess ABG Hemoglobin Oxyhemoglobin Sodium Potassium Chloride 96.3 L Carbon Dioxide BUN 63 H Creatinine 1.7 H Glucose POC Glucose Uric Acid Calcium Phosphorus Magnesium Iron TIBC AST ALT Total Creatine Kinase CK-MB (CK-2) Troponin T NT-Pro-B Natriuret Pep Total Protein Albumin Triglycerides HDL Cholesterol Folate Urine WBC (Auto) Urine Creatinine Urine Total Protein Vancomycin Trough 05/02/19 05/02/19 05/02/19 04:41 04:41 16:05 WBC RBC Hgb Hct MCV MCH MCHC RDW Plt Count Lymph % (Auto) [place] % (Auto) Eos % (Auto) Lymph # [place] # Eos # Seg Neutrophils % Seg Neuts % (Manual) Lymphocytes % (Manual) Monocytes % (Manual) Eosinophils % (Manual) Nucleated RBC % Seg Neutrophils # Seg Neutrophils # Man Lymphocytes # (Manual) Monocytes # (Manual) Eosinophils # (Manual) PT INR APTT Fibrinogen POC ABG pH ABG pH POC ABG pCO2 POC ABG pO2 ABG pO2 66.6 L ABG HCO3 31.9 H ABG O2 Saturation 92.5 L ABG Base Excess 5.8 H ABG Hemoglobin 13.3 L Oxyhemoglobin 90.6 L Sodium Potassium Chloride 97.2 L Carbon Dioxide BUN 61 H Creatinine 1.8 H Glucose POC Glucose Uric Acid Calcium Phosphorus Magnesium Iron TIBC AST ALT Total Creatine Kinase CK-MB (CK-2) 5.2 H Troponin T 0.067 H D NT-Pro-B Natriuret Pep Total Protein Albumin Triglycerides HDL Cholesterol Folate Urine WBC (Auto) Urine Creatinine Urine Total Protein Vancomycin Trough 05/02/19 05/03/19 05/03/19 20:39 04:35 05:05 WBC 11.8 H RBC Hgb Hct MCV MCH 27 L MCHC 31 L RDW 17.2 H Plt Count Lymph % (Auto) [place] % (Auto) Eos % (Auto) Lymph # [place] # Eos # Seg Neutrophils % Seg Neuts % (Manual) Lymphocytes % (Manual) Monocytes % (Manual) Eosinophils % (Manual) Nucleated RBC % Seg Neutrophils # Seg Neutrophils # Man Lymphocytes # (Manual) Monocytes # (Manual) Eosinophils # (Manual) PT INR APTT Fibrinogen POC ABG pH ABG pH POC ABG pCO2 53.6 H 54.0 H POC ABG pO2 55 L 63 L ABG pO2 ABG HCO3 ABG O2 Saturation ABG Base Excess ABG Hemoglobin Oxyhemoglobin Sodium Potassium Chloride Carbon Dioxide BUN Creatinine Glucose POC Glucose Uric Acid Calcium Phosphorus Magnesium Iron TIBC AST ALT Total Creatine Kinase CK-MB (CK-2) Troponin T NT-Pro-B Natriuret Pep Total Protein Albumin Triglycerides HDL Cholesterol Folate Urine WBC (Auto) Urine Creatinine Urine Total Protein Vancomycin Trough 05/03/19 05/03/19 05/03/19 05:05 10:55 16:48 WBC RBC Hgb Hct MCV MCH MCHC RDW Plt Count Lymph % (Auto) [place] % (Auto) Eos % (Auto) Lymph # [place] # Eos # Seg Neutrophils % Seg Neuts % (Manual) Lymphocytes % (Manual) Monocytes % (Manual) Eosinophils % (Manual) Nucleated RBC % Seg Neutrophils # Seg Neutrophils # Man Lymphocytes # (Manual) Monocytes # (Manual) Eosinophils # (Manual) PT INR APTT Fibrinogen POC ABG pH 7.604 H ABG pH POC ABG pCO2 POC ABG pO2 58 L ABG pO2 ABG HCO3 ABG O2 Saturation ABG Base Excess ABG Hemoglobin Oxyhemoglobin Sodium Potassium Chloride Carbon Dioxide BUN 52 H Creatinine 1.9 H Glucose 103 H POC Glucose Uric Acid Calcium Phosphorus Magnesium Iron TIBC AST ALT Total Creatine Kinase CK-MB (CK-2) Troponin T NT-Pro-B Natriuret Pep Total Protein Albumin Triglycerides HDL Cholesterol Folate Urine WBC (Auto) 33.0 H Urine Creatinine Urine Total Protein Vancomycin Trough 05/04/19 05/04/19 05/04/19 04:49 06:50 06:50 WBC 16.0 H RBC Hgb Hct MCV MCH 27 L MCHC 31 L RDW 17.8 H Plt Count Lymph % (Auto) [place] % (Auto) Eos % (Auto) Lymph # [place] # Eos # Seg Neutrophils % Seg Neuts % (Manual) Lymphocytes % (Manual) Monocytes % (Manual) Eosinophils % (Manual) Nucleated RBC % Seg Neutrophils # Seg Neutrophils # Man Lymphocytes # (Manual) Monocytes # (Manual) Eosinophils # (Manual) PT INR APTT Fibrinogen POC ABG pH 7.273 L ABG pH POC ABG pCO2 POC ABG pO2 ABG pO2 ABG HCO3 ABG O2 Saturation ABG Base Excess ABG Hemoglobin Oxyhemoglobin Sodium 148 H Potassium 5.5 H Chloride Carbon Dioxide BUN 53 H Creatinine 3.3 H D Glucose 106 H POC Glucose Uric Acid Calcium 8.3 L Phosphorus Magnesium Iron TIBC AST ALT Total Creatine Kinase CK-MB (CK-2) Troponin T NT-Pro-B Natriuret Pep Total Protein Albumin Triglycerides HDL Cholesterol Folate Urine WBC (Auto) Urine Creatinine Urine Total Protein Vancomycin Trough 05/05/19 05/05/19 05/05/19 00:05 04:30 05:00 WBC RBC Hgb Hct MCV MCH MCHC RDW Plt Count Lymph % (Auto) [place] % (Auto) Eos % (Auto) Lymph # [place] # Eos # Seg Neutrophils % Seg Neuts % (Manual) Lymphocytes % (Manual) Monocytes % (Manual) Eosinophils % (Manual) Nucleated RBC % Seg Neutrophils # Seg Neutrophils # Man Lymphocytes # (Manual) Monocytes # (Manual) Eosinophils # (Manual) PT INR APTT Fibrinogen POC ABG pH 7.225 L ABG pH POC ABG pCO2 > 70 H POC ABG pO2 ABG pO2 ABG HCO3 ABG O2 Saturation ABG Base Excess ABG Hemoglobin Oxyhemoglobin Sodium 151 H Potassium 5.1 H Chloride Carbon Dioxide BUN 64 H Creatinine 3.5 H Glucose 117 H POC Glucose 141 H Uric Acid Calcium 7.5 L Phosphorus Magnesium Iron TIBC AST 93 H ALT 65 H Total Creatine Kinase CK-MB (CK-2) Troponin T NT-Pro-B Natriuret Pep Total Protein Albumin 2.9 L Triglycerides HDL Cholesterol Folate Urine WBC (Auto) Urine Creatinine Urine Total Protein Vancomycin Trough 05/05/19 05/05/19 05/05/19 05:00 12:02 17:46 WBC 12.0 H RBC Hgb 11.3 L Hct MCV MCH 27 L MCHC 30 L RDW 18.4 H Plt Count Lymph % (Auto) 7.9 L [place] % (Auto) 10.2 H Eos % (Auto) Lymph # 1.0 L [place] # 1.2 H Eos # Seg Neutrophils % 80.8 H Seg Neuts % (Manual) Lymphocytes % (Manual) Monocytes % (Manual) Eosinophils % (Manual) Nucleated RBC % Seg Neutrophils # 9.7 H Seg Neutrophils # Man Lymphocytes # (Manual) Monocytes # (Manual) Eosinophils # (Manual) PT INR APTT Fibrinogen POC ABG pH ABG pH POC ABG pCO2 POC ABG pO2 ABG pO2 ABG HCO3 ABG O2 Saturation ABG Base Excess ABG Hemoglobin Oxyhemoglobin Sodium Potassium Chloride Carbon Dioxide BUN Creatinine Glucose POC Glucose 125 H 112 H Uric Acid Calcium Phosphorus Magnesium Iron TIBC AST ALT Total Creatine Kinase CK-MB (CK-2) Troponin T NT-Pro-B Natriuret Pep Total Protein Albumin Triglycerides HDL Cholesterol Folate Urine WBC (Auto) Urine Creatinine Urine Total Protein Vancomycin Trough 05/05/19 05/06/19 05/06/19 23:42 03:58 04:45 WBC 11.4 H RBC Hgb 10.7 L Hct 34.2 L MCV MCH 27 L MCHC 31 L RDW 16.9 H Plt Count Lymph % (Auto) [place] % (Auto) Eos % (Auto) Lymph # [place] # Eos # Seg Neutrophils % Seg Neuts % (Manual) Lymphocytes % (Manual) Monocytes % (Manual) Eosinophils % (Manual) Nucleated RBC % Seg Neutrophils # Seg Neutrophils # Man Lymphocytes # (Manual) Monocytes # (Manual) Eosinophils # (Manual) PT INR APTT Fibrinogen POC ABG pH ABG pH POC ABG pCO2 62.4 H POC ABG pO2 111 H ABG pO2 ABG HCO3 ABG O2 Saturation ABG Base Excess ABG Hemoglobin Oxyhemoglobin Sodium Potassium Chloride Carbon Dioxide BUN Creatinine Glucose POC Glucose 128 H Uric Acid Calcium Phosphorus Magnesium Iron TIBC AST ALT Total Creatine Kinase CK-MB (CK-2) Troponin T NT-Pro-B Natriuret Pep Total Protein Albumin Triglycerides HDL Cholesterol Folate Urine WBC (Auto) Urine Creatinine Urine Total Protein Vancomycin Trough 05/06/19 05/06/19 05/06/19 04:45 05:33 12:30 WBC RBC Hgb Hct MCV MCH MCHC RDW Plt Count Lymph % (Auto) [place] % (Auto) Eos % (Auto) Lymph # [place] # Eos # Seg Neutrophils % Seg Neuts % (Manual) Lymphocytes % (Manual) Monocytes % (Manual) Eosinophils % (Manual) Nucleated RBC % Seg Neutrophils # Seg Neutrophils # Man Lymphocytes # (Manual) Monocytes # (Manual) Eosinophils # (Manual) PT INR APTT Fibrinogen POC ABG pH ABG pH POC ABG pCO2 POC ABG pO2 ABG pO2 ABG HCO3 ABG O2 Saturation ABG Base Excess ABG Hemoglobin Oxyhemoglobin Sodium 149 H Potassium Chloride Carbon Dioxide 31 H BUN 67 H Creatinine 3.2 H Glucose 125 H POC Glucose 117 H 116 H Uric Acid Calcium 7.5 L Phosphorus Magnesium Iron TIBC AST ALT Total Creatine Kinase CK-MB (CK-2) Troponin T NT-Pro-B Natriuret Pep Total Protein Albumin Triglycerides HDL Cholesterol Folate Urine WBC (Auto) Urine Creatinine Urine Total Protein Vancomycin Trough 05/06/19 05/06/19 05/07/19 18:34 23:16 05:22 WBC RBC Hgb Hct MCV MCH MCHC RDW Plt Count Lymph % (Auto) [place] % (Auto) Eos % (Auto) Lymph # [place] # Eos # Seg Neutrophils % Seg Neuts % (Manual) Lymphocytes % (Manual) Monocytes % (Manual) Eosinophils % (Manual) Nucleated RBC % Seg Neutrophils # Seg Neutrophils # Man Lymphocytes # (Manual) Monocytes # (Manual) Eosinophils # (Manual) PT INR APTT Fibrinogen POC ABG pH ABG pH POC ABG pCO2 POC ABG pO2 ABG pO2 ABG HCO3 ABG O2 Saturation ABG Base Excess ABG Hemoglobin Oxyhemoglobin Sodium Potassium Chloride Carbon Dioxide BUN Creatinine Glucose POC Glucose 128 H 143 H 166 H Uric Acid Calcium Phosphorus Magnesium Iron TIBC AST ALT Total Creatine Kinase CK-MB (CK-2) Troponin T NT-Pro-B Natriuret Pep Total Protein Albumin Triglycerides HDL Cholesterol Folate Urine WBC (Auto) Urine Creatinine Urine Total Protein Vancomycin Trough 05/07/19 05/07/19 05/07/19 06:33 07:03 09:35 WBC RBC Hgb Hct MCV MCH MCHC RDW Plt Count Lymph % (Auto) [place] % (Auto) Eos % (Auto) Lymph # [place] # Eos # Seg Neutrophils % Seg Neuts % (Manual) Lymphocytes % (Manual) Monocytes % (Manual) Eosinophils % (Manual) Nucleated RBC % Seg Neutrophils # Seg Neutrophils # Man Lymphocytes # (Manual) Monocytes # (Manual) Eosinophils # (Manual) PT INR APTT Fibrinogen POC ABG pH 7.263 L 7.288 L ABG pH POC ABG pCO2 POC ABG pO2 51 L 56 L ABG pO2 ABG HCO3 ABG O2 Saturation ABG Base Excess ABG Hemoglobin Oxyhemoglobin Sodium Potassium Chloride Carbon Dioxide BUN 76 H Creatinine 3.2 H Glucose 147 H POC Glucose Uric Acid Calcium 7.9 L Phosphorus Magnesium Iron TIBC AST ALT Total Creatine Kinase CK-MB (CK-2) Troponin T NT-Pro-B Natriuret Pep Total Protein Albumin Triglycerides HDL Cholesterol Folate Urine WBC (Auto) Urine Creatinine Urine Total Protein Vancomycin Trough 05/07/19 05/07/19 05/07/19 09:35 12:17 13:45 WBC 13.4 H RBC Hgb 11.6 L Hct MCV MCH 27 L MCHC 31 L RDW 17.5 H Plt Count Lymph % (Auto) [place] % (Auto) Eos % (Auto) Lymph # [place] # Eos # Seg Neutrophils % Seg Neuts % (Manual) Lymphocytes % (Manual) Monocytes % (Manual) Eosinophils % (Manual) Nucleated RBC % Seg Neutrophils # Seg Neutrophils # Man Lymphocytes # (Manual) Monocytes # (Manual) Eosinophils # (Manual) PT INR APTT Fibrinogen POC ABG pH ABG pH POC ABG pCO2 POC ABG pO2 ABG pO2 ABG HCO3 ABG O2 Saturation ABG Base Excess ABG Hemoglobin Oxyhemoglobin Sodium Potassium Chloride Carbon Dioxide BUN Creatinine Glucose POC Glucose 130 H Uric Acid 18.0 H Calcium Phosphorus Magnesium Iron TIBC AST ALT Total Creatine Kinase CK-MB (CK-2) Troponin T NT-Pro-B Natriuret Pep Total Protein Albumin Triglycerides HDL Cholesterol Folate Urine WBC (Auto) Urine Creatinine Urine Total Protein Vancomycin Trough 05/07/19 05/07/19 05/08/19 17:39 22:40 05:06 WBC RBC Hgb Hct MCV MCH MCHC RDW Plt Count Lymph % (Auto) [place] % (Auto) Eos % (Auto) Lymph # [place] # Eos # Seg Neutrophils % Seg Neuts % (Manual) Lymphocytes % (Manual) Monocytes % (Manual) Eosinophils % (Manual) Nucleated RBC % Seg Neutrophils # Seg Neutrophils # Man Lymphocytes # (Manual) Monocytes # (Manual) Eosinophils # (Manual) PT INR APTT Fibrinogen POC ABG pH ABG pH POC ABG pCO2 POC ABG pO2 ABG pO2 ABG HCO3 ABG O2 Saturation ABG Base Excess ABG Hemoglobin Oxyhemoglobin Sodium Potassium Chloride Carbon Dioxide BUN Creatinine Glucose POC Glucose 116 H 148 H Uric Acid Calcium Phosphorus Magnesium Iron TIBC AST ALT Total Creatine Kinase CK-MB (CK-2) Troponin T NT-Pro-B Natriuret Pep Total Protein Albumin Triglycerides HDL Cholesterol Folate Urine WBC (Auto) Urine Creatinine 292.8 H Urine Total Protein 269 H Vancomycin Trough 05/08/19 05/08/19 05/08/19 05:32 11:28 13:48 WBC RBC Hgb Hct MCV MCH MCHC RDW Plt Count Lymph % (Auto) [place] % (Auto) Eos % (Auto) Lymph # [place] # Eos # Seg Neutrophils % Seg Neuts % (Manual) Lymphocytes % (Manual) Monocytes % (Manual) Eosinophils % (Manual) Nucleated RBC % Seg Neutrophils # Seg Neutrophils # Man Lymphocytes # (Manual) Monocytes # (Manual) Eosinophils # (Manual) PT INR APTT Fibrinogen POC ABG pH ABG pH POC ABG pCO2 45.4 H POC ABG pO2 64 L ABG pO2 ABG HCO3 ABG O2 Saturation ABG Base Excess ABG Hemoglobin Oxyhemoglobin Sodium Potassium Chloride Carbon Dioxide BUN 73 H Creatinine 2.7 H Glucose 127 H POC Glucose 107 H Uric Acid Calcium 7.6 L Phosphorus Magnesium Iron TIBC AST ALT Total Creatine Kinase CK-MB (CK-2) Troponin T NT-Pro-B Natriuret Pep Total Protein Albumin Triglycerides HDL Cholesterol Folate Urine WBC (Auto) Urine Creatinine Urine Total Protein Vancomycin Trough 05/08/19 05/09/19 05/09/19 17:48 04:50 04:53 WBC RBC 3.07 L Hgb 8.5 L D Hct 29.3 L D MCV 96 H MCH MCHC 29 L RDW 18.1 H Plt Count Lymph % (Auto) [place] % (Auto) Eos % (Auto) Lymph # [place] # Eos # Seg Neutrophils % Seg Neuts % (Manual) Lymphocytes % (Manual) Monocytes % (Manual) Eosinophils % (Manual) Nucleated RBC % Seg Neutrophils # Seg Neutrophils # Man Lymphocytes # (Manual) Monocytes # (Manual) Eosinophils # (Manual) PT INR APTT Fibrinogen POC ABG pH 7.316 L ABG pH POC ABG pCO2 66.0 H POC ABG pO2 69 L ABG pO2 ABG HCO3 ABG O2 Saturation ABG Base Excess ABG Hemoglobin Oxyhemoglobin Sodium Potassium Chloride Carbon Dioxide BUN Creatinine Glucose POC Glucose 155 H Uric Acid Calcium Phosphorus Magnesium Iron TIBC AST ALT Total Creatine Kinase CK-MB (CK-2) Troponin T NT-Pro-B Natriuret Pep Total Protein Albumin Triglycerides HDL Cholesterol Folate Urine WBC (Auto) Urine Creatinine Urine Total Protein Vancomycin Trough 05/09/19 05/09/19 05/09/19 05:46 07:24 12:10 WBC RBC Hgb Hct MCV MCH MCHC RDW Plt Count Lymph % (Auto) [place] % (Auto) Eos % (Auto) Lymph # [place] # Eos # Seg Neutrophils % Seg Neuts % (Manual) Lymphocytes % (Manual) Monocytes % (Manual) Eosinophils % (Manual) Nucleated RBC % Seg Neutrophils # Seg Neutrophils # Man Lymphocytes # (Manual) Monocytes # (Manual) Eosinophils # (Manual) PT INR APTT Fibrinogen POC ABG pH ABG pH POC ABG pCO2 POC ABG pO2 ABG pO2 ABG HCO3 ABG O2 Saturation ABG Base Excess ABG Hemoglobin Oxyhemoglobin Sodium Potassium Chloride Carbon Dioxide BUN 73 H Creatinine 2.4 H Glucose 153 H POC Glucose 123 H 148 H Uric Acid Calcium 8.2 L Phosphorus Magnesium Iron TIBC AST 45 H ALT Total Creatine Kinase CK-MB (CK-2) Troponin T NT-Pro-B Natriuret Pep Total Protein 6.0 L Albumin 1.9 L Triglycerides HDL Cholesterol Folate Urine WBC (Auto) Urine Creatinine Urine Total Protein Vancomycin Trough 05/09/19 05/09/19 05/10/19 18:23 23:26 04:52 WBC RBC Hgb Hct MCV MCH MCHC RDW Plt Count Lymph % (Auto) [place] % (Auto) Eos % (Auto) Lymph # [place] # Eos # Seg Neutrophils % Seg Neuts % (Manual) Lymphocytes % (Manual) Monocytes % (Manual) Eosinophils % (Manual) Nucleated RBC % Seg Neutrophils # Seg Neutrophils # Man Lymphocytes # (Manual) Monocytes # (Manual) Eosinophils # (Manual) PT INR APTT Fibrinogen POC ABG pH 7.305 L ABG pH POC ABG pCO2 62.6 H POC ABG pO2 ABG pO2 ABG HCO3 ABG O2 Saturation ABG Base Excess ABG Hemoglobin Oxyhemoglobin Sodium Potassium Chloride Carbon Dioxide BUN Creatinine Glucose POC Glucose 147 H 121 H Uric Acid Calcium Phosphorus Magnesium Iron TIBC AST ALT Total Creatine Kinase CK-MB (CK-2) Troponin T NT-Pro-B Natriuret Pep Total Protein Albumin Triglycerides HDL Cholesterol Folate Urine WBC (Auto) Urine Creatinine Urine Total Protein Vancomycin Trough 05/10/19 05/10/19 05/10/19 05:00 05:00 05:50 WBC RBC Hgb 10.3 L Hct 33.7 L MCV MCH 27 L MCHC 31 L RDW 17.0 H Plt Count Lymph % (Auto) [place] % (Auto) Eos % (Auto) Lymph # [place] # Eos # Seg Neutrophils % Seg Neuts % (Manual) Lymphocytes % (Manual) Monocytes % (Manual) Eosinophils % (Manual) Nucleated RBC % Seg Neutrophils # Seg Neutrophils # Man Lymphocytes # (Manual) Monocytes # (Manual) Eosinophils # (Manual) PT INR APTT Fibrinogen POC ABG pH ABG pH POC ABG pCO2 POC ABG pO2 ABG pO2 ABG HCO3 ABG O2 Saturation ABG Base Excess ABG Hemoglobin Oxyhemoglobin Sodium 147 H Potassium Chloride Carbon Dioxide BUN 70 H Creatinine 2.6 H Glucose 155 H POC Glucose 158 H Uric Acid Calcium 8.2 L Phosphorus Magnesium Iron TIBC AST ALT Total Creatine Kinase CK-MB (CK-2) Troponin T NT-Pro-B Natriuret Pep Total Protein 6.1 L Albumin 2.5 L Triglycerides HDL Cholesterol Folate Urine WBC (Auto) Urine Creatinine Urine Total Protein Vancomycin Trough 05/10/19 05/11/19 05/11/19 13:14 07:26 11:40 WBC RBC Hgb Hct MCV MCH MCHC RDW Plt Count Lymph % (Auto) [place] % (Auto) Eos % (Auto) Lymph # [place] # Eos # Seg Neutrophils % Seg Neuts % (Manual) Lymphocytes % (Manual) Monocytes % (Manual) Eosinophils % (Manual) Nucleated RBC % Seg Neutrophils # Seg Neutrophils # Man Lymphocytes # (Manual) Monocytes # (Manual) Eosinophils # (Manual) PT INR APTT Fibrinogen POC ABG pH ABG pH POC ABG pCO2 48.0 H POC ABG pO2 58 L ABG pO2 ABG HCO3 ABG O2 Saturation ABG Base Excess ABG Hemoglobin Oxyhemoglobin Sodium 147 H Potassium Chloride 107.2 H Carbon Dioxide BUN 67 H Creatinine 2.6 H Glucose 121 H POC Glucose 159 H Uric Acid Calcium Phosphorus Magnesium Iron TIBC AST ALT Total Creatine Kinase CK-MB (CK-2) Troponin T NT-Pro-B Natriuret Pep Total Protein Albumin Triglycerides HDL Cholesterol Folate Urine WBC (Auto) Urine Creatinine Urine Total Protein Vancomycin Trough 05/11/19 05/11/19 05/12/19 18:13 23:46 04:40 WBC RBC Hgb Hct MCV MCH MCHC RDW Plt Count Lymph % (Auto) [place] % (Auto) Eos % (Auto) Lymph # [place] # Eos # Seg Neutrophils % Seg Neuts % (Manual) Lymphocytes % (Manual) Monocytes % (Manual) Eosinophils % (Manual) Nucleated RBC % Seg Neutrophils # Seg Neutrophils # Man Lymphocytes # (Manual) Monocytes # (Manual) Eosinophils # (Manual) PT INR APTT Fibrinogen POC ABG pH ABG pH 7.264 L POC ABG pCO2 POC ABG pO2 ABG pO2 66.8 L ABG HCO3 31.0 H ABG O2 Saturation 92.0 L ABG Base Excess ABG Hemoglobin 10.3 L Oxyhemoglobin 90.1 L Sodium Potassium Chloride Carbon Dioxide BUN Creatinine Glucose POC Glucose 120 H 121 H Uric Acid Calcium Phosphorus Magnesium Iron TIBC AST ALT Total Creatine Kinase CK-MB (CK-2) Troponin T NT-Pro-B Natriuret Pep Total Protein Albumin Triglycerides HDL Cholesterol Folate Urine WBC (Auto) Urine Creatinine Urine Total Protein Vancomycin Trough 05/12/19 05/12/19 05/12/19 04:45 04:45 11:14 WBC RBC Hgb 10.2 L Hct 32.4 L MCV MCH MCHC 31 L RDW 17.2 H Plt Count Lymph % (Auto) [place] % (Auto) Eos % (Auto) Lymph # [place] # Eos # Seg Neutrophils % Seg Neuts % (Manual) Lymphocytes % (Manual) Monocytes % (Manual) Eosinophils % (Manual) Nucleated RBC % Seg Neutrophils # Seg Neutrophils # Man Lymphocytes # (Manual) Monocytes # (Manual) Eosinophils # (Manual) PT INR APTT Fibrinogen POC ABG pH 7.284 L ABG pH POC ABG pCO2 67.8 H POC ABG pO2 ABG pO2 ABG HCO3 ABG O2 Saturation ABG Base Excess ABG Hemoglobin Oxyhemoglobin Sodium Potassium Chloride Carbon Dioxide BUN 63 H Creatinine 2.4 H Glucose 110 H POC Glucose Uric Acid Calcium Phosphorus Magnesium Iron TIBC AST ALT Total Creatine Kinase CK-MB (CK-2) Troponin T NT-Pro-B Natriuret Pep Total Protein Albumin Triglycerides HDL Cholesterol Folate Urine WBC (Auto) Urine Creatinine Urine Total Protein Vancomycin Trough 05/12/19 05/12/19 05/13/19 11:44 23:11 04:30 WBC RBC Hgb Hct MCV MCH MCHC RDW Plt Count Lymph % (Auto) [place] % (Auto) Eos % (Auto) Lymph # [place] # Eos # Seg Neutrophils % Seg Neuts % (Manual) Lymphocytes % (Manual) Monocytes % (Manual) Eosinophils % (Manual) Nucleated RBC % Seg Neutrophils # Seg Neutrophils # Man Lymphocytes # (Manual) Monocytes # (Manual) Eosinophils # (Manual) PT INR APTT Fibrinogen POC ABG pH ABG pH 7.288 L POC ABG pCO2 POC ABG pO2 ABG pO2 109.7 H ABG HCO3 30.9 H ABG O2 Saturation ABG Base Excess 3.2 H ABG Hemoglobin 9.6 L Oxyhemoglobin Sodium Potassium Chloride Carbon Dioxide BUN Creatinine Glucose POC Glucose 126 H 147 H Uric Acid Calcium Phosphorus Magnesium Iron TIBC AST ALT Total Creatine Kinase CK-MB (CK-2) Troponin T NT-Pro-B Natriuret Pep Total Protein Albumin Triglycerides HDL Cholesterol Folate Urine WBC (Auto) Urine Creatinine Urine Total Protein Vancomycin Trough 05/13/19 05/13/19 05/14/19 06:27 11:58 04:00 WBC RBC 3.16 L Hgb 9.3 L Hct 27.9 L MCV MCH MCHC RDW 17.1 H Plt Count Lymph % (Auto) [place] % (Auto) Eos % (Auto) Lymph # [place] # Eos # Seg Neutrophils % Seg Neuts % (Manual) Lymphocytes % (Manual) Monocytes % (Manual) Eosinophils % (Manual) Nucleated RBC % Seg Neutrophils # Seg Neutrophils # Man Lymphocytes # (Manual) Monocytes # (Manual) Eosinophils # (Manual) PT INR APTT Fibrinogen POC ABG pH ABG pH POC ABG pCO2 POC ABG pO2 ABG pO2 ABG HCO3 ABG O2 Saturation ABG Base Excess ABG Hemoglobin Oxyhemoglobin Sodium Potassium Chloride Carbon Dioxide BUN Creatinine Glucose POC Glucose 113 H 130 H Uric Acid Calcium Phosphorus Magnesium Iron TIBC AST ALT Total Creatine Kinase CK-MB (CK-2) Troponin T NT-Pro-B Natriuret Pep Total Protein Albumin Triglycerides HDL Cholesterol Folate Urine WBC (Auto) Urine Creatinine Urine Total Protein Vancomycin Trough 05/14/19 05/14/19 05/14/19 04:00 04:34 05:32 WBC RBC Hgb Hct MCV MCH MCHC RDW Plt Count Lymph % (Auto) [place] % (Auto) Eos % (Auto) Lymph # [place] # Eos # Seg Neutrophils % Seg Neuts % (Manual) Lymphocytes % (Manual) Monocytes % (Manual) Eosinophils % (Manual) Nucleated RBC % Seg Neutrophils # Seg Neutrophils # Man Lymphocytes # (Manual) Monocytes # (Manual) Eosinophils # (Manual) PT INR APTT Fibrinogen POC ABG pH 7.328 L ABG pH POC ABG pCO2 61.7 H POC ABG pO2 ABG pO2 ABG HCO3 ABG O2 Saturation ABG Base Excess ABG Hemoglobin Oxyhemoglobin Sodium 135 L D Potassium Chloride Carbon Dioxide BUN 57 H Creatinine 2.2 H Glucose 115 H POC Glucose 115 H Uric Acid Calcium 8.1 L Phosphorus Magnesium Iron TIBC AST ALT Total Creatine Kinase CK-MB (CK-2) Troponin T NT-Pro-B Natriuret Pep Total Protein Albumin Triglycerides HDL Cholesterol Folate Urine WBC (Auto) Urine Creatinine Urine Total Protein Vancomycin Trough 05/14/19 05/15/19 05/15/19 12:11 05:10 05:24 WBC RBC Hgb Hct MCV MCH MCHC RDW Plt Count Lymph % (Auto) [place] % (Auto) Eos % (Auto) Lymph # [place] # Eos # Seg Neutrophils % Seg Neuts % (Manual) Lymphocytes % (Manual) Monocytes % (Manual) Eosinophils % (Manual) Nucleated RBC % Seg Neutrophils # Seg Neutrophils # Man Lymphocytes # (Manual) Monocytes # (Manual) Eosinophils # (Manual) PT INR APTT Fibrinogen POC ABG pH ABG pH 7.342 L POC ABG pCO2 POC ABG pO2 ABG pO2 79.1 L ABG HCO3 28.2 H ABG O2 Saturation ABG Base Excess ABG Hemoglobin 7.0 L Oxyhemoglobin 94.4 L Sodium Potassium Chloride Carbon Dioxide BUN Creatinine Glucose POC Glucose 110 H 116 H Uric Acid Calcium Phosphorus Magnesium Iron TIBC AST ALT Total Creatine Kinase CK-MB (CK-2) Troponin T NT-Pro-B Natriuret Pep Total Protein Albumin Triglycerides HDL Cholesterol Folate Urine WBC (Auto) Urine Creatinine Urine Total Protein Vancomycin Trough 05/15/19 05/15/19 05/16/19 09:00 18:12 04:50 WBC RBC Hgb Hct MCV MCH MCHC RDW Plt Count Lymph % (Auto) [place] % (Auto) Eos % (Auto) Lymph # [place] # Eos # Seg Neutrophils % Seg Neuts % (Manual) Lymphocytes % (Manual) Monocytes % (Manual) Eosinophils % (Manual) Nucleated RBC % Seg Neutrophils # Seg Neutrophils # Man Lymphocytes # (Manual) Monocytes # (Manual) Eosinophils # (Manual) PT INR APTT Fibrinogen POC ABG pH ABG pH 7.250 L POC ABG pCO2 POC ABG pO2 ABG pO2 76.4 L ABG HCO3 ABG O2 Saturation 94.6 L ABG Base Excess -3.1 L ABG Hemoglobin 9.7 L Oxyhemoglobin 92.4 L Sodium Potassium Chloride Carbon Dioxide BUN Creatinine Glucose POC Glucose 110 H Uric Acid Calcium Phosphorus Magnesium Iron TIBC AST ALT Total Creatine Kinase CK-MB (CK-2) Troponin T NT-Pro-B Natriuret Pep Total Protein Albumin Triglycerides HDL Cholesterol Folate Urine WBC (Auto) Urine Creatinine Urine Total Protein Vancomycin Trough 20.5 H 05/16/19 05/16/19 05/17/19 05:50 05:50 04:20 WBC RBC 3.36 L 3.44 L Hgb 9.4 L 9.3 L Hct 29.1 L 29.7 L MCV MCH 27 L MCHC 31 L RDW 17.6 H 17.6 H Plt Count Lymph % (Auto) [place] % (Auto) Eos % (Auto) Lymph # [place] # Eos # Seg Neutrophils % Seg Neuts % (Manual) 77.0 H Lymphocytes % (Manual) 5.0 L Monocytes % (Manual) Eosinophils % (Manual) 10.0 H Nucleated RBC % Seg Neutrophils # Seg Neutrophils # Man Lymphocytes # (Manual) 0.5 L Monocytes # (Manual) Eosinophils # (Manual) 0.9 H PT INR APTT Fibrinogen POC ABG pH ABG pH POC ABG pCO2 POC ABG pO2 ABG pO2 ABG HCO3 ABG O2 Saturation ABG Base Excess ABG Hemoglobin Oxyhemoglobin Sodium Potassium Chloride Carbon Dioxide BUN 83 H Creatinine 4.4 H D Glucose 118 H POC Glucose Uric Acid Calcium Phosphorus Magnesium Iron TIBC AST ALT Total Creatine Kinase CK-MB (CK-2) Troponin T NT-Pro-B Natriuret Pep Total Protein Albumin Triglycerides HDL Cholesterol Folate Urine WBC (Auto) Urine Creatinine Urine Total Protein Vancomycin Trough 05/17/19 05/17/19 05/18/19 04:30 Unknown 01:50 WBC RBC 3.49 L Hgb 9.4 L Hct 30.0 L MCV MCH 27 L MCHC 31 L RDW 17.8 H Plt Count Lymph % (Auto) 7.9 L [place] % (Auto) 15.4 H Eos % (Auto) 6.3 H Lymph # 0.7 L [place] # 1.4 H Eos # 0.6 H Seg Neutrophils % 70.2 H Seg Neuts % (Manual) Lymphocytes % (Manual) Monocytes % (Manual) Eosinophils % (Manual) Nucleated RBC % Seg Neutrophils # Seg Neutrophils # Man Lymphocytes # (Manual) Monocytes # (Manual) Eosinophils # (Manual) PT INR APTT Fibrinogen POC ABG pH ABG pH 7.272 L POC ABG pCO2 POC ABG pO2 ABG pO2 75.7 L ABG HCO3 ABG O2 Saturation 93.8 L ABG Base Excess -3.0 L ABG Hemoglobin 7.8 L Oxyhemoglobin 91.6 L Sodium Potassium 5.2 H Chloride Carbon Dioxide BUN 96 H Creatinine 5.7 H Glucose 112 H POC Glucose Uric Acid Calcium Phosphorus Magnesium Iron TIBC AST ALT Total Creatine Kinase CK-MB (CK-2) Troponin T NT-Pro-B Natriuret Pep Total Protein Albumin Triglycerides 173 H HDL Cholesterol Folate Urine WBC (Auto) Urine Creatinine Urine Total Protein Vancomycin Trough 12/05/18/19 05/18/19 01:50 04:41 05:24 WBC RBC Hgb Hct MCV MCH MCHC RDW Plt Count Lymph % (Auto) [place] % (Auto) Eos % (Auto) Lymph # [place] # Eos # Seg Neutrophils % Seg Neuts % (Manual) Lymphocytes % (Manual) Monocytes % (Manual) Eosinophils % (Manual) Nucleated RBC % Seg Neutrophils # Seg Neutrophils # Man Lymphocytes # (Manual) Monocytes # (Manual) Eosinophils # (Manual) PT INR APTT Fibrinogen POC ABG pH 7.260 L ABG pH POC ABG pCO2 54.9 H POC ABG pO2 ABG pO2 ABG HCO3 ABG O2 Saturation ABG Base Excess ABG Hemoglobin Oxyhemoglobin Sodium Potassium 5.6 H Chloride Carbon Dioxide BUN 104 H Creatinine 6.6 H Glucose 107 H POC Glucose 106 H Uric Acid Calcium Phosphorus Magnesium Iron TIBC AST ALT Total Creatine Kinase CK-MB (CK-2) Troponin T NT-Pro-B Natriuret Pep Total Protein Albumin Triglycerides HDL Cholesterol Folate Urine WBC (Auto) Urine Creatinine Urine Total Protein Vancomycin Trough 05/18/19 05/18/19 05/19/19 11:34 23:26 04:06 WBC RBC 3.22 L Hgb 8.8 L Hct 27.3 L MCV MCH 27 L MCHC RDW 17.5 H Plt Count Lymph % (Auto) [place] % (Auto) Eos % (Auto) Lymph # [place] # Eos # Seg Neutrophils % Seg Neuts % (Manual) 74.0 H Lymphocytes % (Manual) 4.0 L Monocytes % (Manual) 11.0 H Eosinophils % (Manual) 7.0 H Nucleated RBC % 1.0 H Seg Neutrophils # Seg Neutrophils # Man Lymphocytes # (Manual) 0.3 L Monocytes # (Manual) 0.9 H Eosinophils # (Manual) 0.6 H PT INR APTT Fibrinogen POC ABG pH ABG pH POC ABG pCO2 POC ABG pO2 ABG pO2 ABG HCO3 ABG O2 Saturation ABG Base Excess ABG Hemoglobin Oxyhemoglobin Sodium Potassium Chloride Carbon Dioxide BUN Creatinine Glucose POC Glucose 152 H 112 H Uric Acid Calcium Phosphorus Magnesium Iron TIBC AST ALT Total Creatine Kinase CK-MB (CK-2) Troponin T NT-Pro-B Natriuret Pep Total Protein Albumin Triglycerides HDL Cholesterol Folate Urine WBC (Auto) Urine Creatinine Urine Total Protein Vancomycin Trough 05/19/19 05/19/19 05/20/19 04:06 06:00 04:00 WBC RBC 3.40 L Hgb 9.2 L Hct 28.6 L MCV MCH 27 L MCHC RDW 17.6 H Plt Count Lymph % (Auto) [place] % (Auto) Eos % (Auto) Lymph # [place] # Eos # Seg Neutrophils % Seg Neuts % (Manual) Lymphocytes % (Manual) 11.0 L Monocytes % (Manual) Eosinophils % (Manual) 14.0 H Nucleated RBC % Seg Neutrophils # Seg Neutrophils # Man Lymphocytes # (Manual) 1.1 L Monocytes # (Manual) Eosinophils # (Manual) 1.4 H PT INR APTT Fibrinogen POC ABG pH ABG pH 7.315 L POC ABG pCO2 POC ABG pO2 ABG pO2 ABG HCO3 ABG O2 Saturation ABG Base Excess ABG Hemoglobin 6.7 L Oxyhemoglobin 94.1 L Sodium Potassium 5.2 H Chloride Carbon Dioxide 21 L BUN 110 H Creatinine 7.2 H Glucose POC Glucose Uric Acid Calcium 8.3 L Phosphorus Magnesium Iron TIBC AST ALT Total Creatine Kinase CK-MB (CK-2) Troponin T NT-Pro-B Natriuret Pep Total Protein Albumin Triglycerides HDL Cholesterol Folate Urine WBC (Auto) Urine Creatinine Urine Total Protein Vancomycin Trough 05/20/19 05/20/19 05/20/19 04:00 05:48 12:00 WBC RBC Hgb Hct MCV MCH MCHC RDW Plt Count Lymph % (Auto) [place] % (Auto) Eos % (Auto) Lymph # [place] # Eos # Seg Neutrophils % Seg Neuts % (Manual) Lymphocytes % (Manual) Monocytes % (Manual) Eosinophils % (Manual) Nucleated RBC % Seg Neutrophils # Seg Neutrophils # Man Lymphocytes # (Manual) Monocytes # (Manual) Eosinophils # (Manual) PT INR APTT Fibrinogen POC ABG pH ABG pH 7.281 L POC ABG pCO2 POC ABG pO2 ABG pO2 78.7 L ABG HCO3 ABG O2 Saturation 94.5 L ABG Base Excess -3.0 L ABG Hemoglobin 9.9 L Oxyhemoglobin 92.5 L Sodium 136 L Potassium 5.7 H Chloride 96.3 L Carbon Dioxide BUN 125 H Creatinine 8.3 H Glucose 106 H POC Glucose Uric Acid Calcium Phosphorus Magnesium Iron TIBC AST ALT Total Creatine Kinase CK-MB (CK-2) Troponin T NT-Pro-B Natriuret Pep Total Protein Albumin Triglycerides HDL Cholesterol Folate Urine WBC (Auto) 26.0 H Urine Creatinine Urine Total Protein Vancomycin Trough 05/21/19 05/21/19 05/21/19 04:33 05:20 Unknown WBC RBC 3.38 L Hgb 9.1 L Hct 28.5 L MCV MCH 27 L MCHC RDW 17.4 H Plt Count Lymph % (Auto) [place] % (Auto) Eos % (Auto) Lymph # [place] # Eos # Seg Neutrophils % Seg Neuts % (Manual) 71.0 H Lymphocytes % (Manual) 1.0 L Monocytes % (Manual) 11.0 H Eosinophils % (Manual) 6.0 H Nucleated RBC % Seg Neutrophils # Seg Neutrophils # Man Lymphocytes # (Manual) 0.1 L Monocytes # (Manual) 1.0 H Eosinophils # (Manual) 0.6 H PT INR APTT Fibrinogen POC ABG pH 7.315 L ABG pH POC ABG pCO2 57.8 H POC ABG pO2 68 L ABG pO2 ABG HCO3 ABG O2 Saturation ABG Base Excess ABG Hemoglobin Oxyhemoglobin Sodium Potassium Chloride 96.3 L Carbon Dioxide BUN 102 H Creatinine 7.0 H Glucose 103 H POC Glucose Uric Acid Calcium Phosphorus Magnesium Iron TIBC AST ALT Total Creatine Kinase CK-MB (CK-2) Troponin T NT-Pro-B Natriuret Pep Total Protein Albumin Triglycerides HDL Cholesterol Folate Urine WBC (Auto) Urine Creatinine Urine Total Protein Vancomycin Trough 05/22/19 05/22/19 05/22/19 03:54 06:25 06:25 WBC RBC 3.22 L Hgb 8.6 L Hct 27.0 L MCV MCH 27 L MCHC RDW 17.5 H Plt Count Lymph % (Auto) [place] % (Auto) 16.2 H Eos % (Auto) 10.8 H Lymph # [place] # 1.3 H Eos # 0.9 H Seg Neutrophils % Seg Neuts % (Manual) Lymphocytes % (Manual) 10.0 L Monocytes % (Manual) 13.0 H Eosinophils % (Manual) 8.0 H Nucleated RBC % Seg Neutrophils # Seg Neutrophils # Man Lymphocytes # (Manual) 0.9 L Monocytes # (Manual) 1.1 H Eosinophils # (Manual) 0.7 H PT INR APTT Fibrinogen POC ABG pH 7.313 L ABG pH POC ABG pCO2 55.0 H POC ABG pO2 ABG pO2 ABG HCO3 ABG O2 Saturation ABG Base Excess ABG Hemoglobin Oxyhemoglobin Sodium 135 L Potassium Chloride 94.3 L Carbon Dioxide BUN 117 H Creatinine 7.8 H Glucose POC Glucose Uric Acid Calcium 8.2 L Phosphorus Magnesium Iron TIBC AST ALT Total Creatine Kinase CK-MB (CK-2) Troponin T NT-Pro-B Natriuret Pep Total Protein Albumin Triglycerides HDL Cholesterol Folate Urine WBC (Auto) Urine Creatinine Urine Total Protein Vancomycin Trough 05/23/19 05/24/19 05/24/19 05:21 05:00 05:00 WBC RBC 3.18 L Hgb 8.5 L Hct 26.7 L MCV MCH 27 L MCHC RDW 17.9 H Plt Count Lymph % (Auto) [place] % (Auto) Eos % (Auto) Lymph # [place] # Eos # Seg Neutrophils % Seg Neuts % (Manual) Lymphocytes % (Manual) Monocytes % (Manual) Eosinophils % (Manual) Nucleated RBC % Seg Neutrophils # Seg Neutrophils # Man Lymphocytes # (Manual) Monocytes # (Manual) Eosinophils # (Manual) PT INR APTT Fibrinogen POC ABG pH ABG pH POC ABG pCO2 49.7 H POC ABG pO2 73 L ABG pO2 ABG HCO3 ABG O2 Saturation ABG Base Excess ABG Hemoglobin Oxyhemoglobin Sodium Potassium Chloride 95.7 L Carbon Dioxide BUN 97 H Creatinine 6.5 H Glucose POC Glucose Uric Acid Calcium 8.0 L Phosphorus Magnesium Iron TIBC AST ALT Total Creatine Kinase CK-MB (CK-2) Troponin T NT-Pro-B Natriuret Pep Total Protein Albumin Triglycerides HDL Cholesterol Folate Urine WBC (Auto) Urine Creatinine Urine Total Protein Vancomycin Trough 05/24/19 05/25/19 05/25/19 06:17 04:22 15:45 WBC RBC 2.98 L Hgb 8.1 L Hct 24.9 L MCV MCH 27 L MCHC RDW 17.8 H Plt Count Lymph % (Auto) [place] % (Auto) Eos % (Auto) Lymph # [place] # Eos # Seg Neutrophils % Seg Neuts % (Manual) Lymphocytes % (Manual) Monocytes % (Manual) Eosinophils % (Manual) Nucleated RBC % Seg Neutrophils # Seg Neutrophils # Man Lymphocytes # (Manual) Monocytes # (Manual) Eosinophils # (Manual) PT INR APTT Fibrinogen POC ABG pH 7.330 L 7.313 L ABG pH POC ABG pCO2 52.5 H 51.1 H POC ABG pO2 77 L ABG pO2 ABG HCO3 ABG O2 Saturation ABG Base Excess ABG Hemoglobin Oxyhemoglobin Sodium Potassium Chloride Carbon Dioxide BUN Creatinine Glucose POC Glucose Uric Acid Calcium Phosphorus Magnesium Iron TIBC AST ALT Total Creatine Kinase CK-MB (CK-2) Troponin T NT-Pro-B Natriuret Pep Total Protein Albumin Triglycerides HDL Cholesterol Folate Urine WBC (Auto) Urine Creatinine Urine Total Protein Vancomycin Trough 05/25/19 05/26/19 05/26/19 15:45 04:13 05:00 WBC RBC 3.10 L Hgb 8.4 L Hct 26.0 L MCV MCH 27 L MCHC RDW 17.4 H Plt Count Lymph % (Auto) [place] % (Auto) Eos % (Auto) Lymph # [place] # Eos # Seg Neutrophils % Seg Neuts % (Manual) Lymphocytes % (Manual) Monocytes % (Manual) Eosinophils % (Manual) Nucleated RBC % Seg Neutrophils # Seg Neutrophils # Man Lymphocytes # (Manual) Monocytes # (Manual) Eosinophils # (Manual) PT INR APTT Fibrinogen POC ABG pH 7.295 L ABG pH POC ABG pCO2 56.5 H POC ABG pO2 63 L ABG pO2 ABG HCO3 ABG O2 Saturation ABG Base Excess ABG Hemoglobin Oxyhemoglobin Sodium 136 L Potassium Chloride 96.8 L Carbon Dioxide BUN 83 H Creatinine 5.9 H Glucose POC Glucose Uric Acid Calcium 7.6 L Phosphorus Magnesium Iron TIBC AST ALT Total Creatine Kinase CK-MB (CK-2) Troponin T NT-Pro-B Natriuret Pep Total Protein Albumin Triglycerides HDL Cholesterol Folate Urine WBC (Auto) Urine Creatinine Urine Total Protein Vancomycin Trough 05/26/19 05/27/19 05/28/19 05:00 04:48 04:47 WBC RBC Hgb Hct MCV MCH MCHC RDW Plt Count Lymph % (Auto) [place] % (Auto) Eos % (Auto) Lymph # [place] # Eos # Seg Neutrophils % Seg Neuts % (Manual) Lymphocytes % (Manual) Monocytes % (Manual) Eosinophils % (Manual) Nucleated RBC % Seg Neutrophils # Seg Neutrophils # Man Lymphocytes # (Manual) Monocytes # (Manual) Eosinophils # (Manual) PT INR APTT Fibrinogen POC ABG pH 7.323 L ABG pH 7.284 L POC ABG pCO2 56.2 H POC ABG pO2 ABG pO2 71.6 L ABG HCO3 ABG O2 Saturation 92.0 L ABG Base Excess ABG Hemoglobin 7.7 L Oxyhemoglobin 89.9 L Sodium 136 L Potassium Chloride 95.3 L Carbon Dioxide BUN 96 H Creatinine 6.5 H Glucose 108 H POC Glucose Uric Acid Calcium 7.6 L Phosphorus Magnesium Iron TIBC AST ALT Total Creatine Kinase CK-MB (CK-2) Troponin T NT-Pro-B Natriuret Pep Total Protein Albumin Triglycerides HDL Cholesterol Folate Urine WBC (Auto) Urine Creatinine Urine Total Protein Vancomycin Trough 05/28/19 05/29/19 05/29/19 12:30 12:47 23:44 WBC RBC Hgb Hct MCV MCH MCHC RDW Plt Count Lymph % (Auto) [place] % (Auto) Eos % (Auto) Lymph # [place] # Eos # Seg Neutrophils % Seg Neuts % (Manual) Lymphocytes % (Manual) Monocytes % (Manual) Eosinophils % (Manual) Nucleated RBC % Seg Neutrophils # Seg Neutrophils # Man Lymphocytes # (Manual) Monocytes # (Manual) Eosinophils # (Manual) PT INR APTT Fibrinogen POC ABG pH ABG pH POC ABG pCO2 POC ABG pO2 ABG pO2 ABG HCO3 ABG O2 Saturation ABG Base Excess ABG Hemoglobin Oxyhemoglobin Sodium 135 L Potassium Chloride 95.3 L Carbon Dioxide BUN 82 H Creatinine 6.0 H Glucose POC Glucose 136 H 159 H Uric Acid Calcium 7.5 L Phosphorus Magnesium Iron TIBC AST ALT Total Creatine Kinase CK-MB (CK-2) Troponin T NT-Pro-B Natriuret Pep Total Protein Albumin Triglycerides HDL Cholesterol Folate Urine WBC (Auto) Urine Creatinine Urine Total Protein Vancomycin Trough 05/30/19 05/30/19 05/30/19 04:30 05:38 12:00 WBC RBC 3.01 L Hgb 8.2 L Hct 25.3 L MCV MCH 27 L MCHC RDW 17.5 H Plt Count Lymph % (Auto) [place] % (Auto) Eos % (Auto) Lymph # [place] # Eos # Seg Neutrophils % Seg Neuts % (Manual) 80.0 H Lymphocytes % (Manual) 10.0 L Monocytes % (Manual) Eosinophils % (Manual) Nucleated RBC % Seg Neutrophils # Seg Neutrophils # Man 8.0 H Lymphocytes # (Manual) 1.0 L Monocytes # (Manual) Eosinophils # (Manual) PT INR APTT Fibrinogen POC ABG pH ABG pH POC ABG pCO2 POC ABG pO2 73 L ABG pO2 ABG HCO3 ABG O2 Saturation ABG Base Excess ABG Hemoglobin Oxyhemoglobin Sodium Potassium Chloride Carbon Dioxide BUN Creatinine Glucose POC Glucose 166 H Uric Acid Calcium Phosphorus Magnesium Iron TIBC AST ALT Total Creatine Kinase CK-MB (CK-2) Troponin T NT-Pro-B Natriuret Pep Total Protein Albumin Triglycerides HDL Cholesterol Folate Urine WBC (Auto) Urine Creatinine Urine Total Protein Vancomycin Trough 05/30/19 05/31/19 05/31/19 23:45 04:07 13:04 WBC 14.3 H RBC 2.88 L Hgb 7.7 L Hct 23.9 L MCV 83 L MCH 27 L MCHC RDW 17.8 H Plt Count Lymph % (Auto) [place] % (Auto) Eos % (Auto) Lymph # [place] # Eos # Seg Neutrophils % Seg Neuts % (Manual) 83.0 H Lymphocytes % (Manual) 11.0 L Monocytes % (Manual) Eosinophils % (Manual) Nucleated RBC % Seg Neutrophils # Seg Neutrophils # Man 11.9 H Lymphocytes # (Manual) Monocytes # (Manual) 0.9 H Eosinophils # (Manual) PT INR APTT Fibrinogen POC ABG pH ABG pH POC ABG pCO2 47.4 H POC ABG pO2 ABG pO2 ABG HCO3 ABG O2 Saturation ABG Base Excess ABG Hemoglobin Oxyhemoglobin Sodium Potassium Chloride Carbon Dioxide BUN Creatinine Glucose POC Glucose 209 H Uric Acid Calcium Phosphorus Magnesium Iron TIBC AST ALT Total Creatine Kinase CK-MB (CK-2) Troponin T NT-Pro-B Natriuret Pep Total Protein Albumin Triglycerides HDL Cholesterol Folate Urine WBC (Auto) Urine Creatinine Urine Total Protein Vancomycin Trough 05/31/19 05/31/19 06/01/19 13:04 16:42 00:15 WBC RBC Hgb Hct MCV MCH MCHC RDW Plt Count Lymph % (Auto) [place] % (Auto) Eos % (Auto) Lymph # [place] # Eos # Seg Neutrophils % Seg Neuts % (Manual) Lymphocytes % (Manual) Monocytes % (Manual) Eosinophils % (Manual) Nucleated RBC % Seg Neutrophils # Seg Neutrophils # Man Lymphocytes # (Manual) Monocytes # (Manual) Eosinophils # (Manual) PT INR APTT Fibrinogen POC ABG pH ABG pH POC ABG pCO2 POC ABG pO2 ABG pO2 ABG HCO3 ABG O2 Saturation ABG Base Excess ABG Hemoglobin Oxyhemoglobin Sodium 129 L Potassium Chloride 88.6 L Carbon Dioxide 19 L BUN 117 H Creatinine 6.7 H Glucose 205 H POC Glucose 228 H 223 H Uric Acid Calcium 7.4 L Phosphorus 7.40 H Magnesium Iron TIBC AST 58 H ALT 149 H Total Creatine Kinase CK-MB (CK-2) Troponin T NT-Pro-B Natriuret Pep Total Protein 6.0 L Albumin 2.5 L Triglycerides HDL Cholesterol Folate Urine WBC (Auto) Urine Creatinine Urine Total Protein Vancomycin Trough 06/01/19 06/01/19 06/01/19 04:33 05:27 12:31 WBC RBC Hgb Hct MCV MCH MCHC RDW Plt Count Lymph % (Auto) [place] % (Auto) Eos % (Auto) Lymph # [place] # Eos # Seg Neutrophils % Seg Neuts % (Manual) Lymphocytes % (Manual) Monocytes % (Manual) Eosinophils % (Manual) Nucleated RBC % Seg Neutrophils # Seg Neutrophils # Man Lymphocytes # (Manual) Monocytes # (Manual) Eosinophils # (Manual) PT INR APTT Fibrinogen POC ABG pH ABG pH POC ABG pCO2 POC ABG pO2 ABG pO2 56.9 L ABG HCO3 ABG O2 Saturation 85.9 L ABG Base Excess ABG Hemoglobin 8.1 L Oxyhemoglobin 83.6 L Sodium Potassium Chloride Carbon Dioxide BUN Creatinine Glucose POC Glucose 183 H 217 H Uric Acid Calcium Phosphorus Magnesium Iron TIBC AST ALT Total Creatine Kinase CK-MB (CK-2) Troponin T NT-Pro-B Natriuret Pep Total Protein Albumin Triglycerides HDL Cholesterol Folate Urine WBC (Auto) Urine Creatinine Urine Total Protein Vancomycin Trough 06/01/19 06/02/19 06/02/19 18:20 00:00 05:33 WBC RBC Hgb Hct MCV MCH MCHC RDW Plt Count Lymph % (Auto) [place] % (Auto) Eos % (Auto) Lymph # [place] # Eos # Seg Neutrophils % Seg Neuts % (Manual) Lymphocytes % (Manual) Monocytes % (Manual) Eosinophils % (Manual) Nucleated RBC % Seg Neutrophils # Seg Neutrophils # Man Lymphocytes # (Manual) Monocytes # (Manual) Eosinophils # (Manual) PT INR APTT Fibrinogen POC ABG pH ABG pH POC ABG pCO2 POC ABG pO2 ABG pO2 ABG HCO3 ABG O2 Saturation ABG Base Excess ABG Hemoglobin Oxyhemoglobin Sodium Potassium Chloride Carbon Dioxide BUN Creatinine Glucose POC Glucose 265 H 279 H 259 H Uric Acid Calcium Phosphorus Magnesium Iron TIBC AST ALT Total Creatine Kinase CK-MB (CK-2) Troponin T NT-Pro-B Natriuret Pep Total Protein Albumin Triglycerides HDL Cholesterol Folate Urine WBC (Auto) Urine Creatinine Urine Total Protein Vancomycin Trough 06/02/19 06/02/19 06/02/19 11:06 11:06 11:42 WBC 13.1 H RBC 2.92 L Hgb 7.9 L Hct 24.4 L MCV MCH 27 L MCHC RDW 17.4 H Plt Count Lymph % (Auto) [place] % (Auto) Eos % (Auto) Lymph # [place] # Eos # Seg Neutrophils % Seg Neuts % (Manual) 78.0 H Lymphocytes % (Manual) 12.0 L Monocytes % (Manual) 10.0 H Eosinophils % (Manual) Nucleated RBC % Seg Neutrophils # Seg Neutrophils # Man 10.2 H Lymphocytes # (Manual) Monocytes # (Manual) 1.3 H Eosinophils # (Manual) PT INR APTT Fibrinogen POC ABG pH ABG pH POC ABG pCO2 POC ABG pO2 ABG pO2 ABG HCO3 ABG O2 Saturation ABG Base Excess ABG Hemoglobin Oxyhemoglobin Sodium 135 L Potassium Chloride 94.7 L Carbon Dioxide 21 L BUN 107 H Creatinine 4.5 H Glucose 286 H POC Glucose 263 H Uric Acid Calcium 7.9 L Phosphorus 6.30 H Magnesium Iron TIBC AST ALT 104 H Total Creatine Kinase CK-MB (CK-2) Troponin T NT-Pro-B Natriuret Pep Total Protein 6.0 L Albumin 2.7 L Triglycerides HDL Cholesterol Folate Urine WBC (Auto) Urine Creatinine Urine Total Protein Vancomycin Trough 06/02/19 06/02/19 06/03/19 18:17 23:55 05:30 WBC RBC Hgb Hct MCV MCH MCHC RDW Plt Count Lymph % (Auto) [place] % (Auto) Eos % (Auto) Lymph # [place] # Eos # Seg Neutrophils % Seg Neuts % (Manual) Lymphocytes % (Manual) Monocytes % (Manual) Eosinophils % (Manual) Nucleated RBC % Seg Neutrophils # Seg Neutrophils # Man Lymphocytes # (Manual) Monocytes # (Manual) Eosinophils # (Manual) PT INR APTT Fibrinogen POC ABG pH ABG pH POC ABG pCO2 POC ABG pO2 ABG pO2 ABG HCO3 ABG O2 Saturation ABG Base Excess ABG Hemoglobin Oxyhemoglobin Sodium Potassium Chloride 95.1 L Carbon Dioxide 21 L BUN 119 H Creatinine 4.1 H Glucose 330 H POC Glucose 276 H 244 H Uric Acid Calcium 8.1 L Phosphorus Magnesium Iron TIBC AST ALT 98 H Total Creatine Kinase CK-MB (CK-2) Troponin T NT-Pro-B Natriuret Pep Total Protein 5.8 L Albumin 2.8 L Triglycerides HDL Cholesterol Folate Urine WBC (Auto) Urine Creatinine Urine Total Protein Vancomycin Trough 06/03/19 06/03/19 06/03/19 05:30 06:04 09:42 WBC 12.8 H RBC 3.01 L Hgb 8.2 L Hct 25.4 L MCV MCH 27 L MCHC RDW 17.5 H Plt Count Lymph % (Auto) [place] % (Auto) Eos % (Auto) Lymph # [place] # Eos # Seg Neutrophils % Seg Neuts % (Manual) 78.0 H Lymphocytes % (Manual) 10.0 L Monocytes % (Manual) 12.0 H Eosinophils % (Manual) Nucleated RBC % Seg Neutrophils # Seg Neutrophils # Man 10.0 H Lymphocytes # (Manual) Monocytes # (Manual) 1.5 H Eosinophils # (Manual) PT INR APTT Fibrinogen POC ABG pH ABG pH POC ABG pCO2 POC ABG pO2 ABG pO2 ABG HCO3 ABG O2 Saturation ABG Base Excess ABG Hemoglobin Oxyhemoglobin Sodium Potassium Chloride Carbon Dioxide BUN 106 H Creatinine Glucose POC Glucose 254 H Uric Acid Calcium Phosphorus Magnesium Iron TIBC AST ALT Total Creatine Kinase CK-MB (CK-2) Troponin T NT-Pro-B Natriuret Pep Total Protein Albumin Triglycerides HDL Cholesterol Folate Urine WBC (Auto) Urine Creatinine Urine Total Protein Vancomycin Trough 06/03/19 06/03/19 06/03/19 12:52 17:25 23:37 WBC RBC Hgb Hct MCV MCH MCHC RDW Plt Count Lymph % (Auto) [place] % (Auto) Eos % (Auto) Lymph # [place] # Eos # Seg Neutrophils % Seg Neuts % (Manual) Lymphocytes % (Manual) Monocytes % (Manual) Eosinophils % (Manual) Nucleated RBC % Seg Neutrophils # Seg Neutrophils # Man Lymphocytes # (Manual) Monocytes # (Manual) Eosinophils # (Manual) PT INR APTT Fibrinogen POC ABG pH ABG pH POC ABG pCO2 POC ABG pO2 ABG pO2 ABG HCO3 ABG O2 Saturation ABG Base Excess ABG Hemoglobin Oxyhemoglobin Sodium Potassium Chloride Carbon Dioxide BUN Creatinine Glucose POC Glucose 274 H 285 H 310 H Uric Acid Calcium Phosphorus Magnesium Iron TIBC AST ALT Total Creatine Kinase CK-MB (CK-2) Troponin T NT-Pro-B Natriuret Pep Total Protein Albumin Triglycerides HDL Cholesterol Folate Urine WBC (Auto) Urine Creatinine Urine Total Protein Vancomycin Trough 06/04/19 06/04/19 06/04/19 04:57 05:03 11:50 WBC RBC Hgb Hct MCV MCH MCHC RDW Plt Count Lymph % (Auto) [place] % (Auto) Eos % (Auto) Lymph # [place] # Eos # Seg Neutrophils % Seg Neuts % (Manual) Lymphocytes % (Manual) Monocytes % (Manual) Eosinophils % (Manual) Nucleated RBC % Seg Neutrophils # Seg Neutrophils # Man Lymphocytes # (Manual) Monocytes # (Manual) Eosinophils # (Manual) PT INR APTT Fibrinogen POC ABG pH 7.488 H ABG pH POC ABG pCO2 POC ABG pO2 ABG pO2 ABG HCO3 ABG O2 Saturation ABG Base Excess ABG Hemoglobin Oxyhemoglobin Sodium Potassium Chloride Carbon Dioxide BUN Creatinine Glucose POC Glucose 275 H 279 H Uric Acid Calcium Phosphorus Magnesium Iron TIBC AST ALT Total Creatine Kinase CK-MB (CK-2) Troponin T NT-Pro-B Natriuret Pep Total Protein Albumin Triglycerides HDL Cholesterol Folate Urine WBC (Auto) Urine Creatinine Urine Total Protein Vancomycin Trough 06/04/19 06/04/19 06/04/19 18:32 22:03 23:55 WBC RBC Hgb Hct MCV MCH MCHC RDW Plt Count Lymph % (Auto) [place] % (Auto) Eos % (Auto) Lymph # [place] # Eos # Seg Neutrophils % Seg Neuts % (Manual) Lymphocytes % (Manual) Monocytes % (Manual) Eosinophils % (Manual) Nucleated RBC % Seg Neutrophils # Seg Neutrophils # Man Lymphocytes # (Manual) Monocytes # (Manual) Eosinophils # (Manual) PT INR APTT Fibrinogen POC ABG pH ABG pH POC ABG pCO2 POC ABG pO2 ABG pO2 ABG HCO3 ABG O2 Saturation ABG Base Excess ABG Hemoglobin Oxyhemoglobin Sodium Potassium Chloride Carbon Dioxide BUN Creatinine Glucose POC Glucose 267 H 307 H 292 H Uric Acid Calcium Phosphorus Magnesium Iron TIBC AST ALT Total Creatine Kinase CK-MB (CK-2) Troponin T NT-Pro-B Natriuret Pep Total Protein Albumin Triglycerides HDL Cholesterol Folate Urine WBC (Auto) Urine Creatinine Urine Total Protein Vancomycin Trough 06/05/19 06/05/19 06/05/19 03:52 06:41 12:29 WBC RBC Hgb Hct MCV MCH MCHC RDW Plt Count Lymph % (Auto) [place] % (Auto) Eos % (Auto) Lymph # [place] # Eos # Seg Neutrophils % Seg Neuts % (Manual) Lymphocytes % (Manual) Monocytes % (Manual) Eosinophils % (Manual) Nucleated RBC % Seg Neutrophils # Seg Neutrophils # Man Lymphocytes # (Manual) Monocytes # (Manual) Eosinophils # (Manual) PT INR APTT Fibrinogen POC ABG pH 7.462 H ABG pH POC ABG pCO2 POC ABG pO2 ABG pO2 ABG HCO3 ABG O2 Saturation ABG Base Excess ABG Hemoglobin Oxyhemoglobin Sodium Potassium Chloride Carbon Dioxide BUN Creatinine Glucose POC Glucose 369 H 265 H Uric Acid Calcium Phosphorus Magnesium Iron TIBC AST ALT Total Creatine Kinase CK-MB (CK-2) Troponin T NT-Pro-B Natriuret Pep Total Protein Albumin Triglycerides HDL Cholesterol Folate Urine WBC (Auto) Urine Creatinine Urine Total Protein Vancomycin Trough 06/05/19 06/05/19 06/05/19 18:20 21:42 23:21 WBC RBC Hgb Hct MCV MCH MCHC RDW Plt Count Lymph % (Auto) [place] % (Auto) Eos % (Auto) Lymph # [place] # Eos # Seg Neutrophils % Seg Neuts % (Manual) Lymphocytes % (Manual) Monocytes % (Manual) Eosinophils % (Manual) Nucleated RBC % Seg Neutrophils # Seg Neutrophils # Man Lymphocytes # (Manual) Monocytes # (Manual) Eosinophils # (Manual) PT INR APTT Fibrinogen POC ABG pH ABG pH POC ABG pCO2 POC ABG pO2 ABG pO2 ABG HCO3 ABG O2 Saturation ABG Base Excess ABG Hemoglobin Oxyhemoglobin Sodium Potassium Chloride Carbon Dioxide BUN Creatinine Glucose POC Glucose 249 H 246 H 274 H Uric Acid Calcium Phosphorus Magnesium Iron TIBC AST ALT Total Creatine Kinase CK-MB (CK-2) Troponin T NT-Pro-B Natriuret Pep Total Protein Albumin Triglycerides HDL Cholesterol Folate Urine WBC (Auto) Urine Creatinine Urine Total Protein Vancomycin Trough 06/06/19 06/06/19 06/06/19 04:00 05:49 11:34 WBC 18.1 H RBC 3.53 L Hgb 9.5 L Hct 30.3 L MCV MCH 27 L MCHC 31 L RDW 19.5 H Plt Count Lymph % (Auto) [place] % (Auto) Eos % (Auto) Lymph # [place] # Eos # Seg Neutrophils % Seg Neuts % (Manual) 87.0 H Lymphocytes % (Manual) 3.0 L Monocytes % (Manual) 8.0 H Eosinophils % (Manual) Nucleated RBC % Seg Neutrophils # Seg Neutrophils # Man 15.7 H Lymphocytes # (Manual) 0.5 L Monocytes # (Manual) 1.4 H Eosinophils # (Manual) PT INR APTT Fibrinogen POC ABG pH ABG pH 7.472 H POC ABG pCO2 POC ABG pO2 ABG pO2 76.4 L ABG HCO3 28.1 H ABG O2 Saturation ABG Base Excess 4.3 H ABG Hemoglobin 12.5 L Oxyhemoglobin 93.8 L Sodium Potassium Chloride Carbon Dioxide BUN Creatinine Glucose POC Glucose 340 H Uric Acid Calcium Phosphorus Magnesium Iron TIBC AST ALT Total Creatine Kinase CK-MB (CK-2) Troponin T NT-Pro-B Natriuret Pep Total Protein Albumin Triglycerides HDL Cholesterol Folate Urine WBC (Auto) Urine Creatinine Urine Total Protein Vancomycin Trough 06/06/19 06/06/19 06/06/19 11:34 12:11 18:10 WBC RBC Hgb Hct MCV MCH MCHC RDW Plt Count Lymph % (Auto) [place] % (Auto) Eos % (Auto) Lymph # [place] # Eos # Seg Neutrophils % Seg Neuts % (Manual) Lymphocytes % (Manual) Monocytes % (Manual) Eosinophils % (Manual) Nucleated RBC % Seg Neutrophils # Seg Neutrophils # Man Lymphocytes # (Manual) Monocytes # (Manual) Eosinophils # (Manual) PT INR APTT Fibrinogen POC ABG pH ABG pH POC ABG pCO2 POC ABG pO2 ABG pO2 ABG HCO3 ABG O2 Saturation ABG Base Excess ABG Hemoglobin Oxyhemoglobin Sodium Potassium Chloride Carbon Dioxide BUN 70 H Creatinine Glucose 310 H POC Glucose 283 H 301 H Uric Acid Calcium 8.3 L Phosphorus 4.60 H Magnesium Iron TIBC AST ALT 75 H Total Creatine Kinase CK-MB (CK-2) Troponin T NT-Pro-B Natriuret Pep Total Protein 5.6 L Albumin 2.9 L Triglycerides HDL Cholesterol Folate Urine WBC (Auto) Urine Creatinine Urine Total Protein Vancomycin Trough 06/06/19 06/06/19 06/07/19 22:21 23:16 04:30 WBC RBC Hgb Hct MCV MCH MCHC RDW Plt Count Lymph % (Auto) [place] % (Auto) Eos % (Auto) Lymph # [place] # Eos # Seg Neutrophils % Seg Neuts % (Manual) Lymphocytes % (Manual) Monocytes % (Manual) Eosinophils % (Manual) Nucleated RBC % Seg Neutrophils # Seg Neutrophils # Man Lymphocytes # (Manual) Monocytes # (Manual) Eosinophils # (Manual) PT INR APTT Fibrinogen POC ABG pH ABG pH 7.480 H POC ABG pCO2 POC ABG pO2 ABG pO2 77.0 L ABG HCO3 27.2 H ABG O2 Saturation ABG Base Excess 3.5 H ABG Hemoglobin 7.1 L Oxyhemoglobin 94.2 L Sodium Potassium Chloride Carbon Dioxide BUN Creatinine Glucose POC Glucose 289 H 343 H Uric Acid Calcium Phosphorus Magnesium Iron TIBC AST ALT Total Creatine Kinase CK-MB (CK-2) Troponin T NT-Pro-B Natriuret Pep Total Protein Albumin Triglycerides HDL Cholesterol Folate Urine WBC (Auto) Urine Creatinine Urine Total Protein Vancomycin Trough 06/07/19 06/07/19 06/07/19 05:15 12:52 18:41 WBC RBC Hgb Hct MCV MCH MCHC RDW Plt Count Lymph % (Auto) [place] % (Auto) Eos % (Auto) Lymph # [place] # Eos # Seg Neutrophils % Seg Neuts % (Manual) Lymphocytes % (Manual) Monocytes % (Manual) Eosinophils % (Manual) Nucleated RBC % Seg Neutrophils # Seg Neutrophils # Man Lymphocytes # (Manual) Monocytes # (Manual) Eosinophils # (Manual) PT INR APTT Fibrinogen POC ABG pH ABG pH POC ABG pCO2 POC ABG pO2 ABG pO2 ABG HCO3 ABG O2 Saturation ABG Base Excess ABG Hemoglobin Oxyhemoglobin Sodium Potassium Chloride Carbon Dioxide BUN Creatinine Glucose POC Glucose 307 H 226 H 187 H Uric Acid Calcium Phosphorus Magnesium Iron TIBC AST ALT Total Creatine Kinase CK-MB (CK-2) Troponin T NT-Pro-B Natriuret Pep Total Protein Albumin Triglycerides HDL Cholesterol Folate Urine WBC (Auto) Urine Creatinine Urine Total Protein Vancomycin Trough 06/07/19 06/07/19 06/08/19 22:54 23:46 04:20 WBC 16.0 H RBC Hgb 10.0 L Hct 32.1 L MCV MCH 27 L MCHC 31 L RDW 19.4 H Plt Count Lymph % (Auto) [place] % (Auto) Eos % (Auto) Lymph # [place] # Eos # Seg Neutrophils % Seg Neuts % (Manual) 87.0 H Lymphocytes % (Manual) 7.0 L Monocytes % (Manual) Eosinophils % (Manual) Nucleated RBC % Seg Neutrophils # Seg Neutrophils # Man 13.9 H Lymphocytes # (Manual) 1.1 L Monocytes # (Manual) 1.0 H Eosinophils # (Manual) PT INR APTT Fibrinogen POC ABG pH ABG pH POC ABG pCO2 POC ABG pO2 ABG pO2 ABG HCO3 ABG O2 Saturation ABG Base Excess ABG Hemoglobin Oxyhemoglobin Sodium Potassium Chloride Carbon Dioxide BUN Creatinine Glucose POC Glucose 199 H 172 H Uric Acid Calcium Phosphorus Magnesium Iron TIBC AST ALT Total Creatine Kinase CK-MB (CK-2) Troponin T NT-Pro-B Natriuret Pep Total Protein Albumin Triglycerides HDL Cholesterol Folate Urine WBC (Auto) Urine Creatinine Urine Total Protein Vancomycin Trough 06/08/19 06/08/19 06/08/19 04:20 05:15 11:31 WBC RBC Hgb Hct MCV MCH MCHC RDW Plt Count Lymph % (Auto) [place] % (Auto) Eos % (Auto) Lymph # [place] # Eos # Seg Neutrophils % Seg Neuts % (Manual) Lymphocytes % (Manual) Monocytes % (Manual) Eosinophils % (Manual) Nucleated RBC % Seg Neutrophils # Seg Neutrophils # Man Lymphocytes # (Manual) Monocytes # (Manual) Eosinophils # (Manual) PT INR APTT Fibrinogen POC ABG pH ABG pH POC ABG pCO2 POC ABG pO2 ABG pO2 ABG HCO3 ABG O2 Saturation ABG Base Excess ABG Hemoglobin Oxyhemoglobin Sodium 146 H D Potassium Chloride Carbon Dioxide BUN 77 H Creatinine Glucose 205 H POC Glucose 209 H 181 H Uric Acid Calcium Phosphorus Magnesium Iron TIBC AST ALT 66 H Total Creatine Kinase CK-MB (CK-2) Troponin T NT-Pro-B Natriuret Pep Total Protein 5.5 L Albumin 2.9 L Triglycerides HDL Cholesterol Folate Urine WBC (Auto) Urine Creatinine Urine Total Protein Vancomycin Trough 06/08/19 06/08/19 06/09/19 17:28 23:24 05:20 WBC RBC Hgb Hct MCV MCH MCHC RDW Plt Count Lymph % (Auto) [place] % (Auto) Eos % (Auto) Lymph # [place] # Eos # Seg Neutrophils % Seg Neuts % (Manual) Lymphocytes % (Manual) Monocytes % (Manual) Eosinophils % (Manual) Nucleated RBC % Seg Neutrophils # Seg Neutrophils # Man Lymphocytes # (Manual) Monocytes # (Manual) Eosinophils # (Manual) PT INR APTT Fibrinogen POC ABG pH ABG pH POC ABG pCO2 POC ABG pO2 ABG pO2 ABG HCO3 ABG O2 Saturation ABG Base Excess ABG Hemoglobin Oxyhemoglobin Sodium Potassium Chloride Carbon Dioxide BUN Creatinine Glucose POC Glucose 215 H 200 H 173 H Uric Acid Calcium Phosphorus Magnesium Iron TIBC AST ALT Total Creatine Kinase CK-MB (CK-2) Troponin T NT-Pro-B Natriuret Pep Total Protein Albumin Triglycerides HDL Cholesterol Folate Urine WBC (Auto) Urine Creatinine Urine Total Protein Vancomycin Trough 06/09/19 06/09/19 06/09/19 12:07 18:32 23:51 WBC RBC Hgb Hct MCV MCH MCHC RDW Plt Count Lymph % (Auto) [place] % (Auto) Eos % (Auto) Lymph # [place] # Eos # Seg Neutrophils % Seg Neuts % (Manual) Lymphocytes % (Manual) Monocytes % (Manual) Eosinophils % (Manual) Nucleated RBC % Seg Neutrophils # Seg Neutrophils # Man Lymphocytes # (Manual) Monocytes # (Manual) Eosinophils # (Manual) PT INR APTT Fibrinogen POC ABG pH ABG pH POC ABG pCO2 POC ABG pO2 ABG pO2 ABG HCO3 ABG O2 Saturation ABG Base Excess ABG Hemoglobin Oxyhemoglobin Sodium Potassium Chloride Carbon Dioxide BUN Creatinine Glucose POC Glucose 117 H 169 H 147 H Uric Acid Calcium Phosphorus Magnesium Iron TIBC AST ALT Total Creatine Kinase CK-MB (CK-2) Troponin T NT-Pro-B Natriuret Pep Total Protein Albumin Triglycerides HDL Cholesterol Folate Urine WBC (Auto) Urine Creatinine Urine Total Protein Vancomycin Trough 06/10/19 06/10/19 06/10/19 05:45 05:45 06:01 WBC 14.6 H RBC Hgb 9.9 L Hct 32.2 L MCV MCH 27 L MCHC 31 L RDW 19.6 H Plt Count Lymph % (Auto) 10.5 L [place] % (Auto) 9.4 H Eos % (Auto) Lymph # [place] # 1.4 H Eos # Seg Neutrophils % 79.9 H Seg Neuts % (Manual) Lymphocytes % (Manual) Monocytes % (Manual) Eosinophils % (Manual) Nucleated RBC % Seg Neutrophils # 11.7 H Seg Neutrophils # Man Lymphocytes # (Manual) Monocytes # (Manual) Eosinophils # (Manual) PT INR APTT Fibrinogen POC ABG pH ABG pH POC ABG pCO2 POC ABG pO2 ABG pO2 ABG HCO3 ABG O2 Saturation ABG Base Excess ABG Hemoglobin Oxyhemoglobin Sodium 150 H Potassium Chloride 108.3 H Carbon Dioxide BUN 49 H Creatinine Glucose 172 H POC Glucose 165 H Uric Acid Calcium Phosphorus Magnesium 1.40 L Iron TIBC AST ALT Total Creatine Kinase CK-MB (CK-2) Troponin T NT-Pro-B Natriuret Pep Total Protein Albumin Triglycerides HDL Cholesterol Folate Urine WBC (Auto) Urine Creatinine Urine Total Protein Vancomycin Trough 06/10/19 06/10/19 06/11/19 12:11 18:30 00:02 WBC RBC Hgb Hct MCV MCH MCHC RDW Plt Count Lymph % (Auto) [place] % (Auto) Eos % (Auto) Lymph # [place] # Eos # Seg Neutrophils % Seg Neuts % (Manual) Lymphocytes % (Manual) Monocytes % (Manual) Eosinophils % (Manual) Nucleated RBC % Seg Neutrophils # Seg Neutrophils # Man Lymphocytes # (Manual) Monocytes # (Manual) Eosinophils # (Manual) PT INR APTT Fibrinogen POC ABG pH ABG pH POC ABG pCO2 POC ABG pO2 ABG pO2 ABG HCO3 ABG O2 Saturation ABG Base Excess ABG Hemoglobin Oxyhemoglobin Sodium Potassium Chloride Carbon Dioxide BUN Creatinine Glucose POC Glucose 150 H 154 H 130 H Uric Acid Calcium Phosphorus Magnesium Iron TIBC AST ALT Total Creatine Kinase CK-MB (CK-2) Troponin T NT-Pro-B Natriuret Pep Total Protein Albumin Triglycerides HDL Cholesterol Folate Urine WBC (Auto) Urine Creatinine Urine Total Protein Vancomycin Trough 06/11/19 06/11/19 06/11/19 05:33 08:34 12:33 WBC RBC Hgb Hct MCV MCH MCHC RDW Plt Count Lymph % (Auto) [place] % (Auto) Eos % (Auto) Lymph # [place] # Eos # Seg Neutrophils % Seg Neuts % (Manual) Lymphocytes % (Manual) Monocytes % (Manual) Eosinophils % (Manual) Nucleated RBC % Seg Neutrophils # Seg Neutrophils # Man Lymphocytes # (Manual) Monocytes # (Manual) Eosinophils # (Manual) PT INR APTT Fibrinogen POC ABG pH ABG pH POC ABG pCO2 POC ABG pO2 ABG pO2 ABG HCO3 ABG O2 Saturation ABG Base Excess ABG Hemoglobin Oxyhemoglobin Sodium 154 H Potassium Chloride 111.6 H Carbon Dioxide BUN 41 H Creatinine Glucose 147 H POC Glucose 183 H 185 H Uric Acid Calcium Phosphorus Magnesium Iron TIBC AST ALT Total Creatine Kinase CK-MB (CK-2) Troponin T NT-Pro-B Natriuret Pep Total Protein Albumin Triglycerides HDL Cholesterol Folate Urine WBC (Auto) Urine Creatinine Urine Total Protein Vancomycin Trough 06/11/19 06/11/19 06/12/19 18:22 23:46 03:21 WBC 11.9 H RBC 3.61 L Hgb 9.9 L Hct 31.7 L MCV MCH 27 L MCHC 31 L RDW 19.3 H Plt Count Lymph % (Auto) 10.6 L [place] % (Auto) 8.6 H Eos % (Auto) Lymph # [place] # 1.0 H Eos # Seg Neutrophils % 80.6 H Seg Neuts % (Manual) Lymphocytes % (Manual) Monocytes % (Manual) Eosinophils % (Manual) Nucleated RBC % Seg Neutrophils # 9.6 H Seg Neutrophils # Man Lymphocytes # (Manual) Monocytes # (Manual) Eosinophils # (Manual) PT INR APTT Fibrinogen POC ABG pH ABG pH POC ABG pCO2 POC ABG pO2 ABG pO2 ABG HCO3 ABG O2 Saturation ABG Base Excess ABG Hemoglobin Oxyhemoglobin Sodium Potassium Chloride Carbon Dioxide BUN Creatinine Glucose POC Glucose 158 H 182 H Uric Acid Calcium Phosphorus Magnesium Iron TIBC AST ALT Total Creatine Kinase CK-MB (CK-2) Troponin T NT-Pro-B Natriuret Pep Total Protein Albumin Triglycerides HDL Cholesterol Folate Urine WBC (Auto) Urine Creatinine Urine Total Protein Vancomycin Trough 06/12/19 06/12/19 06/12/19 03:21 06:04 11:28 WBC RBC Hgb Hct MCV MCH MCHC RDW Plt Count Lymph % (Auto) [place] % (Auto) Eos % (Auto) Lymph # [place] # Eos # Seg Neutrophils % Seg Neuts % (Manual) Lymphocytes % (Manual) Monocytes % (Manual) Eosinophils % (Manual) Nucleated RBC % Seg Neutrophils # Seg Neutrophils # Man Lymphocytes # (Manual) Monocytes # (Manual) Eosinophils # (Manual) PT INR APTT Fibrinogen POC ABG pH ABG pH POC ABG pCO2 POC ABG pO2 ABG pO2 ABG HCO3 ABG O2 Saturation ABG Base Excess ABG Hemoglobin Oxyhemoglobin Sodium 148 H Potassium Chloride 107.3 H Carbon Dioxide BUN 34 H Creatinine 0.7 L Glucose 194 H POC Glucose 133 H 167 H Uric Acid Calcium Phosphorus Magnesium 1.40 L Iron TIBC AST ALT Total Creatine Kinase CK-MB (CK-2) Troponin T NT-Pro-B Natriuret Pep Total Protein Albumin Triglycerides HDL Cholesterol Folate Urine WBC (Auto) Urine Creatinine Urine Total Protein Vancomycin Trough 06/12/19 06/12/19 06/13/19 18:47 21:27 00:04 WBC RBC Hgb Hct MCV MCH MCHC RDW Plt Count Lymph % (Auto) [place] % (Auto) Eos % (Auto) Lymph # [place] # Eos # Seg Neutrophils % Seg Neuts % (Manual) Lymphocytes % (Manual) Monocytes % (Manual) Eosinophils % (Manual) Nucleated RBC % Seg Neutrophils # Seg Neutrophils # Man Lymphocytes # (Manual) Monocytes # (Manual) Eosinophils # (Manual) PT INR APTT Fibrinogen POC ABG pH ABG pH POC ABG pCO2 POC ABG pO2 ABG pO2 ABG HCO3 ABG O2 Saturation ABG Base Excess ABG Hemoglobin Oxyhemoglobin Sodium Potassium Chloride Carbon Dioxide BUN Creatinine Glucose POC Glucose 210 H 263 H 248 H Uric Acid Calcium Phosphorus Magnesium Iron TIBC AST ALT Total Creatine Kinase CK-MB (CK-2) Troponin T NT-Pro-B Natriuret Pep Total Protein Albumin Triglycerides HDL Cholesterol Folate Urine WBC (Auto) Urine Creatinine Urine Total Protein Vancomycin Trough 06/13/19 06/13/19 06/13/19 04:32 05:46 13:30 WBC RBC Hgb Hct MCV MCH MCHC RDW Plt Count Lymph % (Auto) [place] % (Auto) Eos % (Auto) Lymph # [place] # Eos # Seg Neutrophils % Seg Neuts % (Manual) Lymphocytes % (Manual) Monocytes % (Manual) Eosinophils % (Manual) Nucleated RBC % Seg Neutrophils # Seg Neutrophils # Man Lymphocytes # (Manual) Monocytes # (Manual) Eosinophils # (Manual) PT INR APTT Fibrinogen POC ABG pH ABG pH POC ABG pCO2 POC ABG pO2 ABG pO2 ABG HCO3 ABG O2 Saturation ABG Base Excess ABG Hemoglobin Oxyhemoglobin Sodium Potassium Chloride Carbon Dioxide BUN 27 H Creatinine 0.7 L Glucose 253 H POC Glucose 201 H 241 H Uric Acid Calcium Phosphorus Magnesium Iron TIBC AST ALT Total Creatine Kinase CK-MB (CK-2) Troponin T NT-Pro-B Natriuret Pep Total Protein Albumin Triglycerides HDL Cholesterol Folate Urine WBC (Auto) Urine Creatinine Urine Total Protein Vancomycin Trough 06/13/19 06/13/19 06/14/19 17:33 23:49 04:50 WBC RBC Hgb Hct MCV MCH MCHC RDW Plt Count Lymph % (Auto) [place] % (Auto) Eos % (Auto) Lymph # [place] # Eos # Seg Neutrophils % Seg Neuts % (Manual) Lymphocytes % (Manual) Monocytes % (Manual) Eosinophils % (Manual) Nucleated RBC % Seg Neutrophils # Seg Neutrophils # Man Lymphocytes # (Manual) Monocytes # (Manual) Eosinophils # (Manual) PT INR APTT Fibrinogen POC ABG pH ABG pH POC ABG pCO2 POC ABG pO2 ABG pO2 ABG HCO3 ABG O2 Saturation ABG Base Excess ABG Hemoglobin Oxyhemoglobin Sodium Potassium Chloride Carbon Dioxide BUN 37 H Creatinine Glucose 256 H POC Glucose 264 H 236 H Uric Acid Calcium Phosphorus Magnesium Iron TIBC AST ALT Total Creatine Kinase CK-MB (CK-2) Troponin T NT-Pro-B Natriuret Pep Total Protein Albumin Triglycerides HDL Cholesterol Folate Urine WBC (Auto) Urine Creatinine Urine Total Protein Vancomycin Trough 06/14/19 06/14/19 06/14/19 05:26 12:31 18:32 WBC RBC Hgb Hct MCV MCH MCHC RDW Plt Count Lymph % (Auto) [place] % (Auto) Eos % (Auto) Lymph # [place] # Eos # Seg Neutrophils % Seg Neuts % (Manual) Lymphocytes % (Manual) Monocytes % (Manual) Eosinophils % (Manual) Nucleated RBC % Seg Neutrophils # Seg Neutrophils # Man Lymphocytes # (Manual) Monocytes # (Manual) Eosinophils # (Manual) PT INR APTT Fibrinogen POC ABG pH ABG pH POC ABG pCO2 POC ABG pO2 ABG pO2 ABG HCO3 ABG O2 Saturation ABG Base Excess ABG Hemoglobin Oxyhemoglobin Sodium Potassium Chloride Carbon Dioxide BUN Creatinine Glucose POC Glucose 239 H 116 H 247 H Uric Acid Calcium Phosphorus Magnesium Iron TIBC AST ALT Total Creatine Kinase CK-MB (CK-2) Troponin T NT-Pro-B Natriuret Pep Total Protein Albumin Triglycerides HDL Cholesterol Folate Urine WBC (Auto) Urine Creatinine Urine Total Protein Vancomycin Trough 06/14/19 06/15/19 06/15/19 23:57 04:05 05:55 WBC RBC Hgb Hct MCV MCH MCHC RDW Plt Count Lymph % (Auto) [place] % (Auto) Eos % (Auto) Lymph # [place] # Eos # Seg Neutrophils % Seg Neuts % (Manual) Lymphocytes % (Manual) Monocytes % (Manual) Eosinophils % (Manual) Nucleated RBC % Seg Neutrophils # Seg Neutrophils # Man Lymphocytes # (Manual) Monocytes # (Manual) Eosinophils # (Manual) PT INR APTT Fibrinogen POC ABG pH ABG pH POC ABG pCO2 POC ABG pO2 ABG pO2 ABG HCO3 ABG O2 Saturation ABG Base Excess ABG Hemoglobin Oxyhemoglobin Sodium Potassium Chloride Carbon Dioxide BUN 46 H Creatinine 0.7 L Glucose 265 H POC Glucose 206 H 265 H Uric Acid Calcium Phosphorus Magnesium Iron TIBC AST ALT Total Creatine Kinase CK-MB (CK-2) Troponin T NT-Pro-B Natriuret Pep Total Protein Albumin Triglycerides HDL Cholesterol Folate Urine WBC (Auto) Urine Creatinine Urine Total Protein Vancomycin Trough 06/15/19 06/15/19 06/15/19 12:08 18:45 23:41 WBC RBC Hgb Hct MCV MCH MCHC RDW Plt Count Lymph % (Auto) [place] % (Auto) Eos % (Auto) Lymph # [place] # Eos # Seg Neutrophils % Seg Neuts % (Manual) Lymphocytes % (Manual) Monocytes % (Manual) Eosinophils % (Manual) Nucleated RBC % Seg Neutrophils # Seg Neutrophils # Man Lymphocytes # (Manual) Monocytes # (Manual) Eosinophils # (Manual) PT INR APTT Fibrinogen POC ABG pH ABG pH POC ABG pCO2 POC ABG pO2 ABG pO2 ABG HCO3 ABG O2 Saturation ABG Base Excess ABG Hemoglobin Oxyhemoglobin Sodium Potassium Chloride Carbon Dioxide BUN Creatinine Glucose POC Glucose 224 H 177 H 193 H Uric Acid Calcium Phosphorus Magnesium Iron TIBC AST ALT Total Creatine Kinase CK-MB (CK-2) Troponin T NT-Pro-B Natriuret Pep Total Protein Albumin Triglycerides HDL Cholesterol Folate Urine WBC (Auto) Urine Creatinine Urine Total Protein Vancomycin Trough 06/16/19 06/16/19 06/16/19 05:00 05:00 05:40 WBC 11.9 H RBC 3.24 L Hgb 9.0 L Hct 29.0 L MCV MCH MCHC 31 L RDW 18.6 H Plt Count 111 L Lymph % (Auto) [place] % (Auto) Eos % (Auto) Lymph # [place] # Eos # Seg Neutrophils % Seg Neuts % (Manual) 92.0 H Lymphocytes % (Manual) 2.0 L Monocytes % (Manual) Eosinophils % (Manual) Nucleated RBC % Seg Neutrophils # Seg Neutrophils # Man 10.9 H Lymphocytes # (Manual) 0.2 L Monocytes # (Manual) Eosinophils # (Manual) PT INR APTT Fibrinogen POC ABG pH ABG pH POC ABG pCO2 POC ABG pO2 ABG pO2 ABG HCO3 ABG O2 Saturation ABG Base Excess ABG Hemoglobin Oxyhemoglobin Sodium Potassium Chloride Carbon Dioxide 33 H BUN 49 H Creatinine 0.7 L Glucose 264 H POC Glucose 247 H Uric Acid Calcium Phosphorus Magnesium Iron TIBC AST ALT Total Creatine Kinase CK-MB (CK-2) Troponin T NT-Pro-B Natriuret Pep Total Protein Albumin Triglycerides HDL Cholesterol Folate Urine WBC (Auto) Urine Creatinine Urine Total Protein Vancomycin Trough 06/16/19 06/16/19 06/16/19 12:03 17:11 18:11 WBC RBC Hgb Hct MCV MCH MCHC RDW Plt Count Lymph % (Auto) [place] % (Auto) Eos % (Auto) Lymph # [place] # Eos # Seg Neutrophils % Seg Neuts % (Manual) Lymphocytes % (Manual) Monocytes % (Manual) Eosinophils % (Manual) Nucleated RBC % Seg Neutrophils # Seg Neutrophils # Man Lymphocytes # (Manual) Monocytes # (Manual) Eosinophils # (Manual) PT INR APTT Fibrinogen POC ABG pH ABG pH 7.289 L POC ABG pCO2 POC ABG pO2 ABG pO2 399.3 H ABG HCO3 30.1 H ABG O2 Saturation 99.6 H ABG Base Excess ABG Hemoglobin 8.6 L Oxyhemoglobin Sodium Potassium Chloride Carbon Dioxide BUN Creatinine Glucose POC Glucose 252 H 254 H Uric Acid Calcium Phosphorus Magnesium Iron TIBC AST ALT Total Creatine Kinase CK-MB (CK-2) Troponin T NT-Pro-B Natriuret Pep Total Protein Albumin Triglycerides HDL Cholesterol Folate Urine WBC (Auto) Urine Creatinine Urine Total Protein Vancomycin Trough 06/16/19 06/17/19 06/17/19 23:16 05:30 05:53 WBC RBC Hgb Hct MCV MCH MCHC RDW Plt Count Lymph % (Auto) [place] % (Auto) Eos % (Auto) Lymph # [place] # Eos # Seg Neutrophils % Seg Neuts % (Manual) Lymphocytes % (Manual) Monocytes % (Manual) Eosinophils % (Manual) Nucleated RBC % Seg Neutrophils # Seg Neutrophils # Man Lymphocytes # (Manual) Monocytes # (Manual) Eosinophils # (Manual) PT INR APTT Fibrinogen POC ABG pH ABG pH POC ABG pCO2 POC ABG pO2 ABG pO2 ABG HCO3 ABG O2 Saturation ABG Base Excess ABG Hemoglobin Oxyhemoglobin Sodium 147 H Potassium Chloride Carbon Dioxide 32 H BUN 60 H Creatinine Glucose 205 H POC Glucose 238 H 211 H Uric Acid Calcium Phosphorus Magnesium Iron TIBC AST ALT Total Creatine Kinase CK-MB (CK-2) Troponin T NT-Pro-B Natriuret Pep Total Protein Albumin Triglycerides HDL Cholesterol Folate Urine WBC (Auto) Urine Creatinine Urine Total Protein Vancomycin Trough 06/17/19 06/17/19 06/17/19 09:50 12:27 12:45 WBC RBC 2.79 L Hgb 8.2 L Hct 24.6 L MCV MCH MCHC RDW 18.5 H Plt Count 95 L Lymph % (Auto) [place] % (Auto) Eos % (Auto) Lymph # [place] # Eos # Seg Neutrophils % Seg Neuts % (Manual) Lymphocytes % (Manual) Monocytes % (Manual) Eosinophils % (Manual) Nucleated RBC % Seg Neutrophils # Seg Neutrophils # Man Lymphocytes # (Manual) Monocytes # (Manual) Eosinophils # (Manual) PT INR APTT Fibrinogen 194 L POC ABG pH ABG pH POC ABG pCO2 POC ABG pO2 ABG pO2 ABG HCO3 ABG O2 Saturation ABG Base Excess ABG Hemoglobin Oxyhemoglobin Sodium Potassium Chloride Carbon Dioxide BUN Creatinine Glucose POC Glucose 224 H Uric Acid Calcium Phosphorus Magnesium Iron TIBC AST ALT Total Creatine Kinase CK-MB (CK-2) Troponin T NT-Pro-B Natriuret Pep Total Protein Albumin Triglycerides HDL Cholesterol Folate Urine WBC (Auto) Urine Creatinine Urine Total Protein Vancomycin Trough 06/17/19 06/17/19 06/17/19 18:41 22:00 23:23 WBC RBC Hgb Hct MCV MCH MCHC RDW Plt Count Lymph % (Auto) [place] % (Auto) Eos % (Auto) Lymph # [place] # Eos # Seg Neutrophils % Seg Neuts % (Manual) Lymphocytes % (Manual) Monocytes % (Manual) Eosinophils % (Manual) Nucleated RBC % Seg Neutrophils # Seg Neutrophils # Man Lymphocytes # (Manual) Monocytes # (Manual) Eosinophils # (Manual) PT INR APTT Fibrinogen POC ABG pH ABG pH POC ABG pCO2 POC ABG pO2 ABG pO2 ABG HCO3 ABG O2 Saturation ABG Base Excess ABG Hemoglobin Oxyhemoglobin Sodium Potassium Chloride Carbon Dioxide BUN Creatinine Glucose POC Glucose 198 H 166 H 171 H Uric Acid Calcium Phosphorus Magnesium Iron TIBC AST ALT Total Creatine Kinase CK-MB (CK-2) Troponin T NT-Pro-B Natriuret Pep Total Protein Albumin Triglycerides HDL Cholesterol Folate Urine WBC (Auto) Urine Creatinine Urine Total Protein Vancomycin Trough 06/17/19 06/18/19 06/18/19 Unknown 03:50 04:25 WBC RBC Hgb Hct MCV MCH MCHC RDW Plt Count Lymph % (Auto) [place] % (Auto) Eos % (Auto) Lymph # [place] # Eos # Seg Neutrophils % Seg Neuts % (Manual) Lymphocytes % (Manual) Monocytes % (Manual) Eosinophils % (Manual) Nucleated RBC % Seg Neutrophils # Seg Neutrophils # Man Lymphocytes # (Manual) Monocytes # (Manual) Eosinophils # (Manual) PT INR APTT Fibrinogen POC ABG pH ABG pH 7.564 H 7.499 H POC ABG pCO2 POC ABG pO2 ABG pO2 238.6 H 130.8 H ABG HCO3 33.6 H 32.5 H ABG O2 Saturation 99.4 H ABG Base Excess 10.6 H 8.5 H ABG Hemoglobin 7.9 L 8.8 L Oxyhemoglobin Sodium 151 H Potassium 3.4 L Chloride Carbon Dioxide BUN 66 H Creatinine Glucose 189 H POC Glucose Uric Acid Calcium Phosphorus Magnesium Iron TIBC AST ALT Total Creatine Kinase CK-MB (CK-2) Troponin T NT-Pro-B Natriuret Pep Total Protein Albumin Triglycerides HDL Cholesterol Folate Urine WBC (Auto) Urine Creatinine Urine Total Protein Vancomycin Trough 06/18/19 06/18/19 06/18/19 05:25 05:27 11:50 WBC RBC 2.61 L Hgb 7.4 L Hct 22.9 L MCV MCH MCHC RDW 19.9 H Plt Count 81 L Lymph % (Auto) 12.9 L [place] % (Auto) 7.7 H Eos % (Auto) Lymph # 1.1 L [place] # Eos # Seg Neutrophils % 77.4 H Seg Neuts % (Manual) Lymphocytes % (Manual) Monocytes % (Manual) Eosinophils % (Manual) Nucleated RBC % Seg Neutrophils # Seg Neutrophils # Man Lymphocytes # (Manual) Monocytes # (Manual) Eosinophils # (Manual) PT INR APTT Fibrinogen POC ABG pH ABG pH POC ABG pCO2 POC ABG pO2 ABG pO2 ABG HCO3 ABG O2 Saturation ABG Base Excess ABG Hemoglobin Oxyhemoglobin Sodium Potassium Chloride Carbon Dioxide BUN Creatinine Glucose POC Glucose 186 H 263 H Uric Acid Calcium Phosphorus Magnesium Iron TIBC AST ALT Total Creatine Kinase CK-MB (CK-2) Troponin T NT-Pro-B Natriuret Pep Total Protein Albumin Triglycerides HDL Cholesterol Folate Urine WBC (Auto) Urine Creatinine Urine Total Protein Vancomycin Trough 06/18/19 06/18/19 06/18/19 18:35 21:31 23:21 WBC RBC Hgb Hct MCV MCH MCHC RDW Plt Count Lymph % (Auto) [place] % (Auto) Eos % (Auto) Lymph # [place] # Eos # Seg Neutrophils % Seg Neuts % (Manual) Lymphocytes % (Manual) Monocytes % (Manual) Eosinophils % (Manual) Nucleated RBC % Seg Neutrophils # Seg Neutrophils # Man Lymphocytes # (Manual) Monocytes # (Manual) Eosinophils # (Manual) PT INR APTT Fibrinogen POC ABG pH ABG pH POC ABG pCO2 POC ABG pO2 ABG pO2 ABG HCO3 ABG O2 Saturation ABG Base Excess ABG Hemoglobin Oxyhemoglobin Sodium Potassium Chloride Carbon Dioxide BUN Creatinine Glucose POC Glucose 154 H 186 H 202 H Uric Acid Calcium Phosphorus Magnesium Iron TIBC AST ALT Total Creatine Kinase CK-MB (CK-2) Troponin T NT-Pro-B Natriuret Pep Total Protein Albumin Triglycerides HDL Cholesterol Folate Urine WBC (Auto) Urine Creatinine Urine Total Protein Vancomycin Trough 06/19/19 06/19/19 06/19/19 03:18 04:30 04:30 WBC RBC 2.65 L Hgb 7.5 L Hct 23.1 L MCV MCH MCHC RDW 19.4 H Plt Count 74 L Lymph % (Auto) 8.8 L [place] % (Auto) 9.4 H Eos % (Auto) 4.7 H Lymph # 0.6 L [place] # Eos # Seg Neutrophils % 76.6 H Seg Neuts % (Manual) Lymphocytes % (Manual) Monocytes % (Manual) Eosinophils % (Manual) Nucleated RBC % Seg Neutrophils # Seg Neutrophils # Man Lymphocytes # (Manual) Monocytes # (Manual) Eosinophils # (Manual) PT INR APTT Fibrinogen POC ABG pH ABG pH 7.452 H POC ABG pCO2 POC ABG pO2 ABG pO2 105.5 H ABG HCO3 32.3 H ABG O2 Saturation ABG Base Excess 7.6 H ABG Hemoglobin 6.9 L Oxyhemoglobin Sodium 150 H Potassium 3.3 L Chloride Carbon Dioxide 31 H BUN 56 H Creatinine Glucose 197 H POC Glucose Uric Acid Calcium Phosphorus Magnesium Iron TIBC AST ALT Total Creatine Kinase CK-MB (CK-2) Troponin T NT-Pro-B Natriuret Pep Total Protein Albumin Triglycerides 210 H HDL Cholesterol Folate Urine WBC (Auto) Urine Creatinine Urine Total Protein Vancomycin Trough 06/19/19 06/19/19 06/19/19 05:24 12:18 18:55 WBC RBC Hgb Hct MCV MCH MCHC RDW Plt Count Lymph % (Auto) [place] % (Auto) Eos % (Auto) Lymph # [place] # Eos # Seg Neutrophils % Seg Neuts % (Manual) Lymphocytes % (Manual) Monocytes % (Manual) Eosinophils % (Manual) Nucleated RBC % Seg Neutrophils # Seg Neutrophils # Man Lymphocytes # (Manual) Monocytes # (Manual) Eosinophils # (Manual) PT INR APTT Fibrinogen POC ABG pH ABG pH POC ABG pCO2 POC ABG pO2 ABG pO2 ABG HCO3 ABG O2 Saturation ABG Base Excess ABG Hemoglobin Oxyhemoglobin Sodium Potassium Chloride Carbon Dioxide BUN Creatinine Glucose POC Glucose 176 H 260 H 192 H Uric Acid Calcium Phosphorus Magnesium Iron TIBC AST ALT Total Creatine Kinase CK-MB (CK-2) Troponin T NT-Pro-B Natriuret Pep Total Protein Albumin Triglycerides HDL Cholesterol Folate Urine WBC (Auto) Urine Creatinine Urine Total Protein Vancomycin Trough 06/19/19 06/19/19 06/20/19 22:57 23:46 04:40 WBC RBC 2.79 L Hgb 7.9 L Hct 24.3 L MCV MCH MCHC RDW 19.6 H Plt Count 92 L Lymph % (Auto) 9.2 L [place] % (Auto) 12.0 H Eos % (Auto) 5.2 H Lymph # 0.9 L [place] # 1.2 H Eos # 0.5 H Seg Neutrophils % 73.3 H Seg Neuts % (Manual) Lymphocytes % (Manual) Monocytes % (Manual) Eosinophils % (Manual) Nucleated RBC % Seg Neutrophils # Seg Neutrophils # Man Lymphocytes # (Manual) Monocytes # (Manual) Eosinophils # (Manual) PT INR APTT Fibrinogen POC ABG pH ABG pH POC ABG pCO2 POC ABG pO2 ABG pO2 ABG HCO3 ABG O2 Saturation ABG Base Excess ABG Hemoglobin Oxyhemoglobin Sodium Potassium Chloride Carbon Dioxide BUN Creatinine Glucose POC Glucose 145 H 216 H Uric Acid Calcium Phosphorus Magnesium Iron TIBC AST ALT Total Creatine Kinase CK-MB (CK-2) Troponin T NT-Pro-B Natriuret Pep Total Protein Albumin Triglycerides HDL Cholesterol Folate Urine WBC (Auto) Urine Creatinine Urine Total Protein Vancomycin Trough 06/20/19 06/20/19 06/20/19 04:40 05:40 05:54 WBC RBC Hgb Hct MCV MCH MCHC RDW Plt Count Lymph % (Auto) [place] % (Auto) Eos % (Auto) Lymph # [place] # Eos # Seg Neutrophils % Seg Neuts % (Manual) Lymphocytes % (Manual) Monocytes % (Manual) Eosinophils % (Manual) Nucleated RBC % Seg Neutrophils # Seg Neutrophils # Man Lymphocytes # (Manual) Monocytes # (Manual) Eosinophils # (Manual) PT INR APTT Fibrinogen POC ABG pH ABG pH 7.455 H POC ABG pCO2 POC ABG pO2 ABG pO2 60.9 L ABG HCO3 30.3 H ABG O2 Saturation 92.3 L ABG Base Excess 5.8 H ABG Hemoglobin 8.2 L Oxyhemoglobin 90.1 L Sodium Potassium 3.5 L Chloride Carbon Dioxide BUN 59 H Creatinine Glucose 200 H POC Glucose 190 H Uric Acid Calcium Phosphorus Magnesium 1.60 L Iron TIBC AST ALT Total Creatine Kinase CK-MB (CK-2) Troponin T NT-Pro-B Natriuret Pep Total Protein Albumin Triglycerides HDL Cholesterol Folate Urine WBC (Auto) Urine Creatinine Urine Total Protein Vancomycin Trough 06/20/19 06/20/19 06/20/19 09:12 09:12 12:24 WBC RBC Hgb Hct MCV MCH MCHC RDW Plt Count Lymph % (Auto) [place] % (Auto) Eos % (Auto) Lymph # [place] # Eos # Seg Neutrophils % Seg Neuts % (Manual) Lymphocytes % (Manual) Monocytes % (Manual) Eosinophils % (Manual) Nucleated RBC % Seg Neutrophils # Seg Neutrophils # Man Lymphocytes # (Manual) Monocytes # (Manual) Eosinophils # (Manual) PT INR APTT Fibrinogen POC ABG pH ABG pH POC ABG pCO2 POC ABG pO2 ABG pO2 ABG HCO3 ABG O2 Saturation ABG Base Excess ABG Hemoglobin Oxyhemoglobin Sodium Potassium Chloride Carbon Dioxide BUN Creatinine Glucose POC Glucose 225 H Uric Acid Calcium Phosphorus Magnesium Iron 45 L TIBC 110 L AST ALT Total Creatine Kinase CK-MB (CK-2) Troponin T NT-Pro-B Natriuret Pep Total Protein Albumin Triglycerides HDL Cholesterol Folate 7.01 L Urine WBC (Auto) Urine Creatinine Urine Total Protein Vancomycin Trough 06/20/19 06/20/19 06/20/19 17:42 21:55 23:24 WBC RBC Hgb Hct MCV MCH MCHC RDW Plt Count Lymph % (Auto) [place] % (Auto) Eos % (Auto) Lymph # [place] # Eos # Seg Neutrophils % Seg Neuts % (Manual) Lymphocytes % (Manual) Monocytes % (Manual) Eosinophils % (Manual) Nucleated RBC % Seg Neutrophils # Seg Neutrophils # Man Lymphocytes # (Manual) Monocytes # (Manual) Eosinophils # (Manual) PT INR APTT Fibrinogen POC ABG pH ABG pH POC ABG pCO2 POC ABG pO2 ABG pO2 ABG HCO3 ABG O2 Saturation ABG Base Excess ABG Hemoglobin Oxyhemoglobin Sodium Potassium Chloride Carbon Dioxide BUN Creatinine Glucose POC Glucose 255 H 218 H 215 H Uric Acid Calcium Phosphorus Magnesium Iron TIBC AST ALT Total Creatine Kinase CK-MB (CK-2) Troponin T NT-Pro-B Natriuret Pep Total Protein Albumin Triglycerides HDL Cholesterol Folate Urine WBC (Auto) Urine Creatinine Urine Total Protein Vancomycin Trough 06/21/19 06/21/19 06/21/19 03:32 03:40 05:20 WBC 12.8 H RBC 3.03 L Hgb 8.5 L Hct 26.2 L MCV MCH MCHC RDW 19.4 H Plt Count 131 L Lymph % (Auto) [place] % (Auto) Eos % (Auto) Lymph # [place] # Eos # Seg Neutrophils % Seg Neuts % (Manual) 78.0 H Lymphocytes % (Manual) 5.0 L Monocytes % (Manual) 11.0 H Eosinophils % (Manual) Nucleated RBC % Seg Neutrophils # Seg Neutrophils # Man 10.0 H Lymphocytes # (Manual) 0.6 L Monocytes # (Manual) 1.4 H Eosinophils # (Manual) 0.5 H PT INR APTT Fibrinogen POC ABG pH ABG pH 7.476 H POC ABG pCO2 POC ABG pO2 ABG pO2 162.0 H ABG HCO3 26.8 H ABG O2 Saturation 99.1 H ABG Base Excess 3.1 H ABG Hemoglobin 8.6 L Oxyhemoglobin Sodium Potassium Chloride Carbon Dioxide BUN Creatinine Glucose POC Glucose 202 H Uric Acid Calcium Phosphorus Magnesium Iron TIBC AST ALT Total Creatine Kinase CK-MB (CK-2) Troponin T NT-Pro-B Natriuret Pep Total Protein Albumin Triglycerides HDL Cholesterol Folate Urine WBC (Auto) Urine Creatinine Urine Total Protein Vancomycin Trough 06/21/19 06/21/19 06/21/19 05:20 12:30 18:18 WBC RBC Hgb Hct MCV MCH MCHC RDW Plt Count Lymph % (Auto) [place] % (Auto) Eos % (Auto) Lymph # [place] # Eos # Seg Neutrophils % Seg Neuts % (Manual) Lymphocytes % (Manual) Monocytes % (Manual) Eosinophils % (Manual) Nucleated RBC % Seg Neutrophils # Seg Neutrophils # Man Lymphocytes # (Manual) Monocytes # (Manual) Eosinophils # (Manual) PT INR APTT Fibrinogen POC ABG pH ABG pH POC ABG pCO2 POC ABG pO2 ABG pO2 ABG HCO3 ABG O2 Saturation ABG Base Excess ABG Hemoglobin Oxyhemoglobin Sodium Potassium Chloride 97.7 L Carbon Dioxide BUN 69 H Creatinine Glucose 239 H POC Glucose 176 H 187 H Uric Acid Calcium Phosphorus Magnesium 2.40 H Iron TIBC AST ALT Total Creatine Kinase CK-MB (CK-2) Troponin T NT-Pro-B Natriuret Pep Total Protein Albumin Triglycerides HDL Cholesterol Folate Urine WBC (Auto) Urine Creatinine Urine Total Protein Vancomycin Trough 06/22/19 06/22/19 06/22/19 04:11 05:30 05:30 WBC 12.6 H RBC 3.10 L Hgb 8.7 L Hct 27.0 L MCV MCH MCHC RDW 19.8 H Plt Count Lymph % (Auto) [place] % (Auto) Eos % (Auto) Lymph # [place] # Eos # Seg Neutrophils % Seg Neuts % (Manual) Lymphocytes % (Manual) Monocytes % (Manual) 10.0 H Eosinophils % (Manual) Nucleated RBC % Seg Neutrophils # Seg Neutrophils # Man 8.7 H Lymphocytes # (Manual) Monocytes # (Manual) 1.3 H Eosinophils # (Manual) PT INR APTT Fibrinogen POC ABG pH ABG pH POC ABG pCO2 POC ABG pO2 ABG pO2 ABG HCO3 27.7 H ABG O2 Saturation ABG Base Excess 3.3 H ABG Hemoglobin 8.5 L Oxyhemoglobin 94.9 L Sodium Potassium Chloride Carbon Dioxide BUN 66 H Creatinine Glucose 103 H POC Glucose Uric Acid Calcium Phosphorus Magnesium Iron TIBC AST ALT Total Creatine Kinase CK-MB (CK-2) Troponin T NT-Pro-B Natriuret Pep Total Protein Albumin Triglycerides HDL Cholesterol Folate Urine WBC (Auto) Urine Creatinine Urine Total Protein Vancomycin Trough 06/22/19 06/22/19 06/23/19 17:43 23:25 02:00 WBC RBC Hgb Hct MCV MCH MCHC RDW Plt Count Lymph % (Auto) [place] % (Auto) Eos % (Auto) Lymph # [place] # Eos # Seg Neutrophils % Seg Neuts % (Manual) Lymphocytes % (Manual) Monocytes % (Manual) Eosinophils % (Manual) Nucleated RBC % Seg Neutrophils # Seg Neutrophils # Man Lymphocytes # (Manual) Monocytes # (Manual) Eosinophils # (Manual) PT INR APTT Fibrinogen POC ABG pH ABG pH 7.469 H POC ABG pCO2 POC ABG pO2 ABG pO2 58.7 L ABG HCO3 28.0 H ABG O2 Saturation 94.6 L ABG Base Excess 4.0 H ABG Hemoglobin 7.1 L Oxyhemoglobin 92.2 L Sodium Potassium Chloride Carbon Dioxide BUN Creatinine Glucose POC Glucose 143 H 106 H Uric Acid Calcium Phosphorus Magnesium Iron TIBC AST ALT Total Creatine Kinase CK-MB (CK-2) Troponin T NT-Pro-B Natriuret Pep Total Protein Albumin Triglycerides HDL Cholesterol Folate Urine WBC (Auto) Urine Creatinine Urine Total Protein Vancomycin Trough 06/23/19 06/23/19 06/23/19 05:24 05:24 11:43 WBC 12.6 H RBC 2.96 L Hgb 8.3 L Hct 25.5 L MCV MCH MCHC RDW 20.2 H Plt Count Lymph % (Auto) [place] % (Auto) Eos % (Auto) Lymph # [place] # Eos # Seg Neutrophils % Seg Neuts % (Manual) Lymphocytes % (Manual) 12.0 L Monocytes % (Manual) 11.0 H Eosinophils % (Manual) 6.0 H Nucleated RBC % Seg Neutrophils # Seg Neutrophils # Man 8.8 H Lymphocytes # (Manual) Monocytes # (Manual) 1.4 H Eosinophils # (Manual) 0.8 H PT INR APTT Fibrinogen POC ABG pH ABG pH POC ABG pCO2 POC ABG pO2 ABG pO2 ABG HCO3 ABG O2 Saturation ABG Base Excess ABG Hemoglobin Oxyhemoglobin Sodium 146 H Potassium 3.5 L Chloride Carbon Dioxide BUN 48 H Creatinine Glucose 123 H POC Glucose 120 H Uric Acid Calcium Phosphorus Magnesium Iron TIBC AST ALT Total Creatine Kinase CK-MB (CK-2) Troponin T NT-Pro-B Natriuret Pep Total Protein Albumin Triglycerides HDL Cholesterol Folate Urine WBC (Auto) Urine Creatinine Urine Total Protein Vancomycin Trough 06/23/19 06/24/19 06/24/19 17:39 06:53 06:53 WBC 12.3 H RBC 2.87 L Hgb 8.0 L Hct 24.9 L MCV MCH MCHC RDW 20.5 H Plt Count Lymph % (Auto) [place] % (Auto) 8.8 H Eos % (Auto) 4.4 H Lymph # [place] # 1.1 H Eos # 0.5 H Seg Neutrophils % Seg Neuts % (Manual) Lymphocytes % (Manual) Monocytes % (Manual) Eosinophils % (Manual) Nucleated RBC % Seg Neutrophils # Seg Neutrophils # Man Lymphocytes # (Manual) Monocytes # (Manual) Eosinophils # (Manual) PT INR APTT Fibrinogen POC ABG pH ABG pH POC ABG pCO2 POC ABG pO2 ABG pO2 ABG HCO3 ABG O2 Saturation ABG Base Excess ABG Hemoglobin Oxyhemoglobin Sodium Potassium Chloride 107.1 H Carbon Dioxide 21 L BUN 29 H Creatinine 0.6 L Glucose 117 H POC Glucose 111 H Uric Acid Calcium Phosphorus Magnesium 1.60 L Iron TIBC AST ALT Total Creatine Kinase CK-MB (CK-2) Troponin T NT-Pro-B Natriuret Pep Total Protein Albumin Triglycerides HDL Cholesterol Folate Urine WBC (Auto) Urine Creatinine Urine Total Protein Vancomycin Trough 06/24/19 06/24/19 06/24/19 12:12 18:01 23:20 WBC RBC Hgb Hct MCV MCH MCHC RDW Plt Count Lymph % (Auto) [place] % (Auto) Eos % (Auto) Lymph # [place] # Eos # Seg Neutrophils % Seg Neuts % (Manual) Lymphocytes % (Manual) Monocytes % (Manual) Eosinophils % (Manual) Nucleated RBC % Seg Neutrophils # Seg Neutrophils # Man Lymphocytes # (Manual) Monocytes # (Manual) Eosinophils # (Manual) PT INR APTT Fibrinogen POC ABG pH ABG pH POC ABG pCO2 POC ABG pO2 ABG pO2 ABG HCO3 ABG O2 Saturation ABG Base Excess ABG Hemoglobin Oxyhemoglobin Sodium Potassium Chloride Carbon Dioxide BUN Creatinine Glucose POC Glucose 158 H 133 H 106 H Uric Acid Calcium Phosphorus Magnesium Iron TIBC AST ALT Total Creatine Kinase CK-MB (CK-2) Troponin T NT-Pro-B Natriuret Pep Total Protein Albumin Triglycerides HDL Cholesterol Folate Urine WBC (Auto) Urine Creatinine Urine Total Protein Vancomycin Trough 06/25/19 06/25/19 06/25/19 04:46 04:46 05:36 WBC 12.3 H RBC 2.98 L Hgb 8.3 L Hct 26.4 L MCV MCH MCHC 31 L RDW 20.1 H Plt Count Lymph % (Auto) [place] % (Auto) Eos % (Auto) Lymph # [place] # Eos # Seg Neutrophils % Seg Neuts % (Manual) Lymphocytes % (Manual) Monocytes % (Manual) 10.0 H Eosinophils % (Manual) Nucleated RBC % Seg Neutrophils # Seg Neutrophils # Man 8.1 H Lymphocytes # (Manual) Monocytes # (Manual) 1.2 H Eosinophils # (Manual) PT INR APTT Fibrinogen POC ABG pH ABG pH POC ABG pCO2 POC ABG pO2 ABG pO2 ABG HCO3 ABG O2 Saturation ABG Base Excess ABG Hemoglobin Oxyhemoglobin Sodium 148 H Potassium Chloride 108.0 H Carbon Dioxide BUN 21 H Creatinine 0.7 L Glucose 120 H POC Glucose 121 H Uric Acid Calcium Phosphorus Magnesium Iron TIBC AST ALT Total Creatine Kinase CK-MB (CK-2) Troponin T NT-Pro-B Natriuret Pep Total Protein Albumin Triglycerides HDL Cholesterol Folate Urine WBC (Auto) Urine Creatinine Urine Total Protein Vancomycin Trough 06/25/19 06/25/19 06/26/19 14:02 18:30 00:01 WBC RBC Hgb Hct MCV MCH MCHC RDW Plt Count Lymph % (Auto) [place] % (Auto) Eos % (Auto) Lymph # [place] # Eos # Seg Neutrophils % Seg Neuts % (Manual) Lymphocytes % (Manual) Monocytes % (Manual) Eosinophils % (Manual) Nucleated RBC % Seg Neutrophils # Seg Neutrophils # Man Lymphocytes # (Manual) Monocytes # (Manual) Eosinophils # (Manual) PT INR APTT Fibrinogen POC ABG pH ABG pH POC ABG pCO2 POC ABG pO2 ABG pO2 ABG HCO3 ABG O2 Saturation ABG Base Excess ABG Hemoglobin Oxyhemoglobin Sodium Potassium Chloride Carbon Dioxide BUN Creatinine Glucose POC Glucose 125 H 145 H 142 H Uric Acid Calcium Phosphorus Magnesium Iron TIBC AST ALT Total Creatine Kinase CK-MB (CK-2) Troponin T NT-Pro-B Natriuret Pep Total Protein Albumin Triglycerides HDL Cholesterol Folate Urine WBC (Auto) Urine Creatinine Urine Total Protein Vancomycin Trough 06/26/19 06/26/19 06/26/19 04:43 04:43 05:41 WBC RBC 3.02 L Hgb 8.6 L Hct 27.0 L MCV MCH MCHC RDW 20.4 H Plt Count Lymph % (Auto) [place] % (Auto) Eos % (Auto) Lymph # [place] # Eos # Seg Neutrophils % Seg Neuts % (Manual) Lymphocytes % (Manual) Monocytes % (Manual) 9.0 H Eosinophils % (Manual) Nucleated RBC % Seg Neutrophils # Seg Neutrophils # Man Lymphocytes # (Manual) Monocytes # (Manual) 1.0 H Eosinophils # (Manual) PT INR APTT Fibrinogen POC ABG pH ABG pH POC ABG pCO2 POC ABG pO2 ABG pO2 ABG HCO3 ABG O2 Saturation ABG Base Excess ABG Hemoglobin Oxyhemoglobin Sodium Potassium Chloride Carbon Dioxide BUN Creatinine 0.7 L Glucose 111 H POC Glucose 110 H Uric Acid Calcium Phosphorus Magnesium 1.60 L Iron TIBC AST ALT Total Creatine Kinase CK-MB (CK-2) Troponin T NT-Pro-B Natriuret Pep Total Protein Albumin Triglycerides HDL Cholesterol Folate Urine WBC (Auto) Urine Creatinine Urine Total Protein Vancomycin Trough 06/26/19 06/26/19 06/27/19 11:55 18:07 12:10 WBC RBC Hgb Hct MCV MCH MCHC RDW Plt Count Lymph % (Auto) [place] % (Auto) Eos % (Auto) Lymph # [place] # Eos # Seg Neutrophils % Seg Neuts % (Manual) Lymphocytes % (Manual) Monocytes % (Manual) Eosinophils % (Manual) Nucleated RBC % Seg Neutrophils # Seg Neutrophils # Man Lymphocytes # (Manual) Monocytes # (Manual) Eosinophils # (Manual) PT INR APTT Fibrinogen POC ABG pH ABG pH POC ABG pCO2 POC ABG pO2 ABG pO2 ABG HCO3 ABG O2 Saturation ABG Base Excess ABG Hemoglobin Oxyhemoglobin Sodium Potassium Chloride Carbon Dioxide BUN Creatinine Glucose POC Glucose 159 H 107 H 121 H Uric Acid Calcium Phosphorus Magnesium Iron TIBC AST ALT Total Creatine Kinase CK-MB (CK-2) Troponin T NT-Pro-B Natriuret Pep Total Protein Albumin Triglycerides HDL Cholesterol Folate Urine WBC (Auto) Urine Creatinine Urine Total Protein Vancomycin Trough 06/28/19 06/29/19 06/29/19 05:54 13:10 17:58 WBC RBC Hgb Hct MCV MCH MCHC RDW Plt Count Lymph % (Auto) [place] % (Auto) Eos % (Auto) Lymph # [place] # Eos # Seg Neutrophils % Seg Neuts % (Manual) Lymphocytes % (Manual) Monocytes % (Manual) Eosinophils % (Manual) Nucleated RBC % Seg Neutrophils # Seg Neutrophils # Man Lymphocytes # (Manual) Monocytes # (Manual) Eosinophils # (Manual) PT INR APTT Fibrinogen POC ABG pH ABG pH POC ABG pCO2 POC ABG pO2 ABG pO2 ABG HCO3 ABG O2 Saturation ABG Base Excess ABG Hemoglobin Oxyhemoglobin Sodium Potassium Chloride Carbon Dioxide BUN Creatinine Glucose POC Glucose 107 H 115 H 108 H Uric Acid Calcium Phosphorus Magnesium Iron TIBC AST ALT Total Creatine Kinase CK-MB (CK-2) Troponin T NT-Pro-B Natriuret Pep Total Protein Albumin Triglycerides HDL Cholesterol Folate Urine WBC (Auto) Urine Creatinine Urine Total Protein Vancomycin Trough 06/30/19 06/30/19 07/01/19 12:00 18:13 05:49 WBC RBC Hgb Hct MCV MCH MCHC RDW Plt Count Lymph % (Auto) [place] % (Auto) Eos % (Auto) Lymph # [place] # Eos # Seg Neutrophils % Seg Neuts % (Manual) Lymphocytes % (Manual) Monocytes % (Manual) Eosinophils % (Manual) Nucleated RBC % Seg Neutrophils # Seg Neutrophils # Man Lymphocytes # (Manual) Monocytes # (Manual) Eosinophils # (Manual) PT INR APTT Fibrinogen POC ABG pH ABG pH POC ABG pCO2 POC ABG pO2 ABG pO2 ABG HCO3 ABG O2 Saturation ABG Base Excess ABG Hemoglobin Oxyhemoglobin Sodium Potassium Chloride Carbon Dioxide BUN Creatinine Glucose POC Glucose 108 H 114 H 114 H Uric Acid Calcium Phosphorus Magnesium Iron TIBC AST ALT Total Creatine Kinase CK-MB (CK-2) Troponin T NT-Pro-B Natriuret Pep Total Protein Albumin Triglycerides HDL Cholesterol Folate Urine WBC (Auto) Urine Creatinine Urine Total Protein Vancomycin Trough 07/01/19 07/01/19 07/01/19 07:58 07:58 12:06 WBC 11.5 H RBC 3.24 L Hgb 9.0 L Hct 28.4 L MCV MCH MCHC RDW 20.8 H Plt Count Lymph % (Auto) 8.3 L [place] % (Auto) 10.0 H Eos % (Auto) Lymph # 0.9 L [place] # 1.2 H Eos # Seg Neutrophils % 79.4 H Seg Neuts % (Manual) Lymphocytes % (Manual) Monocytes % (Manual) Eosinophils % (Manual) Nucleated RBC % Seg Neutrophils # 9.1 H Seg Neutrophils # Man Lymphocytes # (Manual) Monocytes # (Manual) Eosinophils # (Manual) PT INR APTT Fibrinogen POC ABG pH ABG pH POC ABG pCO2 POC ABG pO2 ABG pO2 ABG HCO3 ABG O2 Saturation ABG Base Excess ABG Hemoglobin Oxyhemoglobin Sodium Potassium Chloride Carbon Dioxide BUN Creatinine 0.4 L Glucose 130 H POC Glucose 133 H Uric Acid Calcium Phosphorus Magnesium Iron TIBC AST ALT Total Creatine Kinase CK-MB (CK-2) Troponin T NT-Pro-B Natriuret Pep Total Protein Albumin Triglycerides HDL Cholesterol Folate Urine WBC (Auto) Urine Creatinine Urine Total Protein Vancomycin Trough 07/02/19 07/02/19 07/02/19 05:54 13:27 13:39 WBC RBC Hgb Hct MCV MCH MCHC RDW Plt Count Lymph % (Auto) [place] % (Auto) Eos % (Auto) Lymph # [place] # Eos # Seg Neutrophils % Seg Neuts % (Manual) Lymphocytes % (Manual) Monocytes % (Manual) Eosinophils % (Manual) Nucleated RBC % Seg Neutrophils # Seg Neutrophils # Man Lymphocytes # (Manual) Monocytes # (Manual) Eosinophils # (Manual) PT INR APTT Fibrinogen POC ABG pH ABG pH POC ABG pCO2 POC ABG pO2 ABG pO2 ABG HCO3 ABG O2 Saturation ABG Base Excess ABG Hemoglobin Oxyhemoglobin Sodium Potassium Chloride Carbon Dioxide BUN Creatinine Glucose POC Glucose 111 H 123 H 116 H Uric Acid Calcium Phosphorus Magnesium Iron TIBC AST ALT Total Creatine Kinase CK-MB (CK-2) Troponin T NT-Pro-B Natriuret Pep Total Protein Albumin Triglycerides HDL Cholesterol Folate Urine WBC (Auto) Urine Creatinine Urine Total Protein Vancomycin Trough 07/02/19 07/03/19 07/04/19 18:00 06:06 12:15 WBC RBC Hgb Hct MCV MCH MCHC RDW Plt Count Lymph % (Auto) [place] % (Auto) Eos % (Auto) Lymph # [place] # Eos # Seg Neutrophils % Seg Neuts % (Manual) Lymphocytes % (Manual) Monocytes % (Manual) Eosinophils % (Manual) Nucleated RBC % Seg Neutrophils # Seg Neutrophils # Man Lymphocytes # (Manual) Monocytes # (Manual) Eosinophils # (Manual) PT INR APTT Fibrinogen POC ABG pH ABG pH POC ABG pCO2 POC ABG pO2 ABG pO2 ABG HCO3 ABG O2 Saturation ABG Base Excess ABG Hemoglobin Oxyhemoglobin Sodium Potassium Chloride Carbon Dioxide BUN Creatinine Glucose POC Glucose 118 H 127 H 122 H Uric Acid Calcium Phosphorus Magnesium Iron TIBC AST ALT Total Creatine Kinase CK-MB (CK-2) Troponin T NT-Pro-B Natriuret Pep Total Protein Albumin Triglycerides HDL Cholesterol Folate Urine WBC (Auto) Urine Creatinine Urine Total Protein Vancomycin Trough 07/04/19 07/04/19 07/05/19 18:09 23:48 06:30 WBC RBC Hgb Hct MCV MCH MCHC RDW Plt Count Lymph % (Auto) [place] % (Auto) Eos % (Auto) Lymph # [place] # Eos # Seg Neutrophils % Seg Neuts % (Manual) Lymphocytes % (Manual) Monocytes % (Manual) Eosinophils % (Manual) Nucleated RBC % Seg Neutrophils # Seg Neutrophils # Man Lymphocytes # (Manual) Monocytes # (Manual) Eosinophils # (Manual) PT INR APTT Fibrinogen POC ABG pH ABG pH POC ABG pCO2 POC ABG pO2 ABG pO2 ABG HCO3 ABG O2 Saturation ABG Base Excess ABG Hemoglobin Oxyhemoglobin Sodium Potassium Chloride Carbon Dioxide BUN Creatinine Glucose POC Glucose 115 H 110 H 106 H Uric Acid Calcium Phosphorus Magnesium Iron TIBC AST ALT Total Creatine Kinase CK-MB (CK-2) Troponin T NT-Pro-B Natriuret Pep Total Protein Albumin Triglycerides HDL Cholesterol Folate Urine WBC (Auto) Urine Creatinine Urine Total Protein Vancomycin Trough 07/05/19 07/05/19 07/05/19 11:55 18:16 23:38 WBC RBC Hgb Hct MCV MCH MCHC RDW Plt Count Lymph % (Auto) [place] % (Auto) Eos % (Auto) Lymph # [place] # Eos # Seg Neutrophils % Seg Neuts % (Manual) Lymphocytes % (Manual) Monocytes % (Manual) Eosinophils % (Manual) Nucleated RBC % Seg Neutrophils # Seg Neutrophils # Man Lymphocytes # (Manual) Monocytes # (Manual) Eosinophils # (Manual) PT INR APTT Fibrinogen POC ABG pH ABG pH POC ABG pCO2 POC ABG pO2 ABG pO2 ABG HCO3 ABG O2 Saturation ABG Base Excess ABG Hemoglobin Oxyhemoglobin Sodium Potassium Chloride Carbon Dioxide BUN Creatinine Glucose POC Glucose 106 H 120 H 114 H Uric Acid Calcium Phosphorus Magnesium Iron TIBC AST ALT Total Creatine Kinase CK-MB (CK-2) Troponin T NT-Pro-B Natriuret Pep Total Protein Albumin Triglycerides HDL Cholesterol Folate Urine WBC (Auto) Urine Creatinine Urine Total Protein Vancomycin Trough 07/06/19 07/06/19 07/06/19 06:01 12:28 18:49 WBC RBC Hgb Hct MCV MCH MCHC RDW Plt Count Lymph % (Auto) [place] % (Auto) Eos % (Auto) Lymph # [place] # Eos # Seg Neutrophils % Seg Neuts % (Manual) Lymphocytes % (Manual) Monocytes % (Manual) Eosinophils % (Manual) Nucleated RBC % Seg Neutrophils # Seg Neutrophils # Man Lymphocytes # (Manual) Monocytes # (Manual) Eosinophils # (Manual) PT INR APTT Fibrinogen POC ABG pH ABG pH POC ABG pCO2 POC ABG pO2 ABG pO2 ABG HCO3 ABG O2 Saturation ABG Base Excess ABG Hemoglobin Oxyhemoglobin Sodium Potassium Chloride Carbon Dioxide BUN Creatinine Glucose POC Glucose 115 H 114 H 111 H Uric Acid Calcium Phosphorus Magnesium Iron TIBC AST ALT Total Creatine Kinase CK-MB (CK-2) Troponin T NT-Pro-B Natriuret Pep Total Protein Albumin Triglycerides HDL Cholesterol Folate Urine WBC (Auto) Urine Creatinine Urine Total Protein Vancomycin Trough 07/07/19 07/07/19 07/07/19 05:34 11:57 23:54 WBC RBC Hgb Hct MCV MCH MCHC RDW Plt Count Lymph % (Auto) [place] % (Auto) Eos % (Auto) Lymph # [place] # Eos # Seg Neutrophils % Seg Neuts % (Manual) Lymphocytes % (Manual) Monocytes % (Manual) Eosinophils % (Manual) Nucleated RBC % Seg Neutrophils # Seg Neutrophils # Man Lymphocytes # (Manual) Monocytes # (Manual) Eosinophils # (Manual) PT INR APTT Fibrinogen POC ABG pH ABG pH POC ABG pCO2 POC ABG pO2 ABG pO2 ABG HCO3 ABG O2 Saturation ABG Base Excess ABG Hemoglobin Oxyhemoglobin Sodium Potassium Chloride Carbon Dioxide BUN Creatinine Glucose POC Glucose 121 H 135 H 109 H Uric Acid Calcium Phosphorus Magnesium Iron TIBC AST ALT Total Creatine Kinase CK-MB (CK-2) Troponin T NT-Pro-B Natriuret Pep Total Protein Albumin Triglycerides HDL Cholesterol Folate Urine WBC (Auto) Urine Creatinine Urine Total Protein Vancomycin Trough 07/08/19 07/08/19 07/09/19 04:00 04:00 12:13 WBC RBC 3.30 L Hgb 9.3 L Hct 29.0 L MCV MCH MCHC RDW 19.9 H Plt Count Lymph % (Auto) [place] % (Auto) Eos % (Auto) Lymph # [place] # Eos # Seg Neutrophils % Seg Neuts % (Manual) 76.0 H Lymphocytes % (Manual) Monocytes % (Manual) Eosinophils % (Manual) Nucleated RBC % Seg Neutrophils # Seg Neutrophils # Man 8.4 H Lymphocytes # (Manual) Monocytes # (Manual) Eosinophils # (Manual) PT INR APTT Fibrinogen POC ABG pH ABG pH POC ABG pCO2 POC ABG pO2 ABG pO2 ABG HCO3 ABG O2 Saturation ABG Base Excess ABG Hemoglobin Oxyhemoglobin Sodium Potassium Chloride Carbon Dioxide BUN Creatinine 0.5 L Glucose 117 H POC Glucose 111 H Uric Acid Calcium Phosphorus Magnesium Iron TIBC AST ALT Total Creatine Kinase CK-MB (CK-2) Troponin T NT-Pro-B Natriuret Pep Total Protein Albumin Triglycerides HDL Cholesterol Folate Urine WBC (Auto) Urine Creatinine Urine Total Protein Vancomycin Trough 07/10/19 07/10/19 07/10/19 05:28 12:22 17:19 WBC RBC Hgb Hct MCV MCH MCHC RDW Plt Count Lymph % (Auto) [place] % (Auto) Eos % (Auto) Lymph # [place] # Eos # Seg Neutrophils % Seg Neuts % (Manual) Lymphocytes % (Manual) Monocytes % (Manual) Eosinophils % (Manual) Nucleated RBC % Seg Neutrophils # Seg Neutrophils # Man Lymphocytes # (Manual) Monocytes # (Manual) Eosinophils # (Manual) PT INR APTT Fibrinogen POC ABG pH ABG pH POC ABG pCO2 POC ABG pO2 ABG pO2 ABG HCO3 ABG O2 Saturation ABG Base Excess ABG Hemoglobin Oxyhemoglobin Sodium Potassium Chloride Carbon Dioxide BUN Creatinine Glucose POC Glucose 114 H 113 H 115 H Uric Acid Calcium Phosphorus Magnesium Iron TIBC AST ALT Total Creatine Kinase CK-MB (CK-2) Troponin T NT-Pro-B Natriuret Pep Total Protein Albumin Triglycerides HDL Cholesterol Folate Urine WBC (Auto) Urine Creatinine Urine Total Protein Vancomycin Trough 07/11/19 07/11/19 07/11/19 05:27 06:08 06:08 WBC 12.6 H RBC 3.26 L Hgb 9.2 L Hct 28.6 L MCV MCH MCHC RDW 19.6 H Plt Count Lymph % (Auto) [place] % (Auto) Eos % (Auto) Lymph # [place] # Eos # Seg Neutrophils % Seg Neuts % (Manual) Lymphocytes % (Manual) Monocytes % (Manual) Eosinophils % (Manual) Nucleated RBC % Seg Neutrophils # Seg Neutrophils # Man Lymphocytes # (Manual) Monocytes # (Manual) Eosinophils # (Manual) PT INR APTT Fibrinogen POC ABG pH ABG pH POC ABG pCO2 POC ABG pO2 ABG pO2 ABG HCO3 ABG O2 Saturation ABG Base Excess ABG Hemoglobin Oxyhemoglobin Sodium Potassium Chloride Carbon Dioxide 17 L D BUN Creatinine Glucose 117 H POC Glucose 114 H Uric Acid Calcium Phosphorus Magnesium Iron TIBC AST ALT Total Creatine Kinase CK-MB (CK-2) Troponin T NT-Pro-B Natriuret Pep Total Protein Albumin Triglycerides HDL Cholesterol Folate Urine WBC (Auto) Urine Creatinine Urine Total Protein Vancomycin Trough 07/12/19 07/13/19 07/13/19 18:33 03:55 03:55 WBC 11.4 H RBC 3.18 L Hgb 8.8 L Hct 27.4 L MCV MCH MCHC RDW 19.1 H Plt Count Lymph % (Auto) [place] % (Auto) Eos % (Auto) Lymph # [place] # Eos # Seg Neutrophils % Seg Neuts % (Manual) Lymphocytes % (Manual) Monocytes % (Manual) Eosinophils % (Manual) Nucleated RBC % Seg Neutrophils # Seg Neutrophils # Man Lymphocytes # (Manual) Monocytes # (Manual) Eosinophils # (Manual) PT INR APTT Fibrinogen POC ABG pH ABG pH POC ABG pCO2 POC ABG pO2 ABG pO2 ABG HCO3 ABG O2 Saturation ABG Base Excess ABG Hemoglobin Oxyhemoglobin Sodium Potassium Chloride 97.4 L Carbon Dioxide BUN Creatinine 0.5 L Glucose 121 H POC Glucose 106 H Uric Acid Calcium Phosphorus Magnesium Iron TIBC AST ALT Total Creatine Kinase CK-MB (CK-2) Troponin T NT-Pro-B Natriuret Pep Total Protein Albumin Triglycerides HDL Cholesterol Folate Urine WBC (Auto) Urine Creatinine Urine Total Protein Vancomycin Trough 07/13/19 05:08 WBC RBC Hgb Hct MCV MCH MCHC RDW Plt Count Lymph % (Auto) [place] % (Auto) Eos % (Auto) Lymph # [place] # Eos # Seg Neutrophils % Seg Neuts % (Manual) Lymphocytes % (Manual) Monocytes % (Manual) Eosinophils % (Manual) Nucleated RBC % Seg Neutrophils # Seg Neutrophils # Man Lymphocytes # (Manual) Monocytes # (Manual) Eosinophils # (Manual) PT INR APTT Fibrinogen POC ABG pH ABG pH POC ABG pCO2 POC ABG pO2 ABG pO2 ABG HCO3 ABG O2 Saturation ABG Base Excess ABG Hemoglobin Oxyhemoglobin Sodium Potassium Chloride Carbon Dioxide BUN Creatinine Glucose POC Glucose 107 H Uric Acid Calcium Phosphorus Magnesium Iron TIBC AST ALT Total Creatine Kinase CK-MB (CK-2) Troponin T NT-Pro-B Natriuret Pep Total Protein Albumin Triglycerides HDL Cholesterol Folate Urine WBC (Auto) Urine Creatinine Urine Total Protein Vancomycin Trough
--- NOTE | 2019-07-13 13:48 | Progress Note ---
Assessment and Plan - Patient Problems (1) Acute heart failure with preserved ejection fraction Current Visit: Yes Status: Acute Plan to address problem: Patient congestive heart failure (2) Acute hypernatremia Current Visit: Yes Status: Acute Plan to address problem: Hypernatremia has resolved. (3) Acute on chronic respiratory failure Current Visit: Yes Status: Acute Qualifiers: Respiratory failure complication: hypoxia Qualified Code(s): J96.21 - Acute and chronic respiratory failure with hypoxia Plan to address problem: Acute on chronic respiratory failure. Patient unable to wean status post tracheostomy. Underlying etiology obstructive sleep apnea. Obesity hypoventilation syndrome. (4) Anemia Current Visit: Yes Status: Acute Plan to address problem: Anemia stable. Patient does have thrombocytopenia resolved. (5) Noncompliance with CPAP treatment Current Visit: Yes Status: Acute History Interval history: Patient remains intubated tracheostomy PEG. Eyes will follow. Still waiting any indigent care response to further take care of patient. No new events overnight. Hospitalist Physical - Constitutional Vitals: Temp Pulse Resp BP Pulse Ox 99.4 F 107 H 22 136/79 97 07/13/19 12:00 07/13/19 12:00 07/13/19 04:00 07/13/19 12:00 07/13/19 12:00 General appearance: Present: no acute distress, obese, other (tracheostomy /T- piece) - EENT Eyes: Present: PERRL, EOM intact ENT: hearing intact, clear oral mucosa - Neck Neck: Present: supple, normal ROM - Respiratory Respiratory: bilateral: diminished, rales - Cardiovascular Rhythm: regular Heart Sounds: Present: S1 & S2 - Extremities Extremities: no ischemia, pulses intact, pulses symmetrical, normal temperature, normal color Extremity abnormal: edema Peripheral Pulses: within normal limits - Abdominal General gastrointestinal: soft, hypoactive bowel sounds, other (Obese), no hepatomegaly, no splenomegaly - Integumentary Integumentary: Present: clear, warm, dry - Neurologic Neurologic: moves all extremities Results - Labs CBC & Chem 7: 07/13/19 03:55 07/13/19 03:55 Labs: Laboratory Last Values WBC 11.4 K/mm3 (4.5-11.0) H 07/13/19 03:55 RBC 3.18 M/mm3 (3.65-5.03) L 07/13/19 03:55 Hgb 8.8 gm/dl (11.8-15.2) L 07/13/19 03:55 Hct 27.4 % (35.5-45.6) L 07/13/19 03:55 MCV 86 fl (84-94) 07/13/19 03:55 MCH 28 pg (28-32) 07/13/19 03:55 MCHC 32 % (32-34) 07/13/19 03:55 RDW 19.1 % (13.2-15.2) H 07/13/19 03:55 Plt Count 440 K/mm3 (140-440) 07/13/19 03:55 Lymph % (Auto) 8.3 % (13.4-35.0) L 07/01/19 07:58 [place] % (Auto) 10.0 % (0.0-7.3) H 07/01/19 07:58 Eos % (Auto) 1.5 % (0.0-4.3) 07/01/19 07:58 Baso % (Auto) 0.8 % (0.0-1.8) 07/01/19 07:58 Lymph # 0.9 K/mm3 (1.2-5.4) L 07/01/19 07:58 [place] # 1.2 K/mm3 (0.0-0.8) H 07/01/19 07:58 Eos # 0.2 K/mm3 (0.0-0.4) 07/01/19 07:58 Baso # 0.1 K/mm3 (0.0-0.1) 07/01/19 07:58 Add Manual Diff Complete 07/08/19 04:00 Total Counted 100 07/08/19 04:00 Seg Neutrophils % 79.4 % (40.0-70.0) H 07/01/19 07:58 Seg Neuts % (Manual) 76.0 % (40.0-70.0) H 07/08/19 04:00 Band Neutrophils % 0 % 07/08/19 04:00 Lymphocytes % (Manual) 16.0 % (13.4-35.0) 07/08/19 04:00 Reactive Lymphs % (Man) 0 % 07/08/19 04:00 Monocytes % (Manual) 6.0 % (0.0-7.3) 07/08/19 04:00 Eosinophils % (Manual) 2.0 % (0.0-4.3) 07/08/19 04:00 Basophils % (Manual) 0 % (0.0-1.8) 07/08/19 04:00 Metamyelocytes % 0 % 07/08/19 04:00 Myelocytes % 0 % 07/08/19 04:00 Promyelocytes % 0 % 07/08/19 04:00 Blast Cells % 0 % 07/08/19 04:00 Nucleated RBC % Not Reportable 07/08/19 04:00 Seg Neutrophils # 9.1 K/mm3 (1.8-7.7) H 07/01/19 07:58 Seg Neutrophils # Man 8.4 K/mm3 (1.8-7.7) H 07/08/19 04:00 Band Neutrophils # 0.0 K/mm3 07/08/19 04:00 Lymphocytes # (Manual) 1.8 K/mm3 (1.2-5.4) 07/08/19 04:00 Abs React Lymphs (Man) 0.0 K/mm3 07/08/19 04:00 Monocytes # (Manual) 0.7 K/mm3 (0.0-0.8) 07/08/19 04:00 Eosinophils # (Manual) 0.2 K/mm3 (0.0-0.4) 07/08/19 04:00 Basophils # (Manual) 0.0 K/mm3 (0.0-0.1) 07/08/19 04:00 Metamyelocytes # 0.0 K/mm3 07/08/19 04:00 Myelocytes # 0.0 K/mm3 07/08/19 04:00 Promyelocytes # 0.0 K/mm3 07/08/19 04:00 Blast Cells # 0.0 K/mm3 07/08/19 04:00 WBC Morphology Not Reportable 07/08/19 04:00 Hypersegmented Neuts Not Reportable 07/08/19 04:00 Hyposegmented Neuts Not Reportable 07/08/19 04:00 Hypogranular Neuts Not Reportable 07/08/19 04:00 Smudge Cells Not Reportable 07/08/19 04:00 Toxic Granulation Not Reportable 07/08/19 04:00 Toxic Vacuolation Not Reportable 07/08/19 04:00 Dohle Bodies Not Reportable 07/08/19 04:00 Pelger-Huet Anomaly Not Reportable 07/08/19 04:00 Renea Rods Not Reportable 07/08/19 04:00 Platelet Estimate Consistent w auto 07/08/19 04:00 Clumped Platelets Not Reportable 07/08/19 04:00 Plt Clumps, EDTA Not Reportable 07/08/19 04:00 Large Platelets Not Reportable 07/08/19 04:00 Giant Platelets Not Reportable 07/08/19 04:00 Platelet Satelliting Not Reportable 07/08/19 04:00 Plt Morphology Comment Not Reportable 07/08/19 04:00 RBC Morphology Not Reportable 07/08/19 04:00 Dimorphic RBCs Not Reportable 07/08/19 04:00 Polychromasia Not Reportable 07/08/19 04:00 Hypochromasia Not Reportable 07/08/19 04:00 Poikilocytosis Not Reportable 07/08/19 04:00 Anisocytosis 1+ 07/08/19 04:00 Microcytosis Not Reportable 07/08/19 04:00 Macrocytosis Not Reportable 07/08/19 04:00 Spherocytes Not Reportable 07/08/19 04:00 Pappenheimer Bodies Not Reportable 07/08/19 04:00 Sickle Cells Not Reportable 07/08/19 04:00 Target Cells Not Reportable 07/08/19 04:00 Tear Drop Cells Not Reportable 07/08/19 04:00 Ovalocytes Not Reportable 07/08/19 04:00 Stomatocytes 3+ 06/23/19 05:24 Helmet Cells Not Reportable 07/08/19 04:00 [place] Bodies Not Reportable 07/08/19 04:00 [place] Rings Not Reportable 07/08/19 04:00 [place] Cells Not Reportable 07/08/19 04:00 Bite Cells Not Reportable 07/08/19 04:00 Crenated Cell Not Reportable 07/08/19 04:00 Elliptocytes Not Reportable 07/08/19 04:00 Acanthocytes (Spur) Not Reportable 07/08/19 04:00 Rouleaux Not Reportable 07/08/19 04:00 Hemoglobin C Crystals Not Reportable 07/08/19 04:00 Schistocytes Not Reportable 07/08/19 04:00 Malaria parasites Not Reportable 07/08/19 04:00 Syed Bodies Not Reportable 07/08/19 04:00 Hem Pathologist Commnt No 07/08/19 04:00 PT 15.4 Sec. (12.2-14.9) H 05/01/19 Unknown INR 1.23 (0.87-1.13) H 05/01/19 Unknown APTT 22.7 Sec. (24.2-36.6) L 05/01/19 Unknown Fibrinogen 194 mg/dl (211-480) L 06/17/19 12:45 Heparin Anti-Xa, Unfract Negative (Negative) 06/17/19 12:45 POC ABG pH 7.462 (7.35-7.45) H 06/05/19 03:52 ABG pH 7.469 pH Units (7.350-7.450) H 06/23/19 02:00 POC ABG pCO2 39.8 (35-45) 06/05/19 03:52 ABG pCO2 39.4 mm Hg 06/23/19 02:00 POC ABG pO2 86 (80-105) 06/05/19 03:52 ABG pO2 58.7 mm Hg (80.0-90.0) L 06/23/19 02:00 POC ABG HCO3 28.4 (22-26 mml/L) 06/05/19 03:52 ABG HCO3 28.0 mmol/L (20.0-26.0) H 06/23/19 02:00 POC ABG Total CO2 30 (23-27mmol/L) 06/05/19 03:52 POC ABG O2 Sat 97 06/05/19 03:52 ABG O2 Saturation 94.6 % (95.0-99.0) L 06/23/19 02:00 ABG O2 Content 9.2 (0.0-44) 06/23/19 02:00 POC ABG Base Excess 5 ((-2) - (+3)mmol/L) 06/05/19 03:52 ABG Base Excess 4.0 mmol/L (-2.0-3.0) H 06/23/19 02:00 ABG Hemoglobin 7.1 gm/dl (14.0-18.0) L 06/23/19 02:00 ABG Carboxyhemoglobin 2.0 % (0.0-5.0) 06/23/19 02:00 ABG Methemoglobin 0.5 % (0.0-1.5) 06/23/19 02:00 Oxyhemoglobin 92.2 % (95.0-99.0) L 06/23/19 02:00 FiO2 30 % 06/23/19 02:00 Sodium 138 mmol/L (137-145) 07/13/19 03:55 Potassium 4.0 mmol/L (3.6-5.0) 07/13/19 03:55 Chloride 97.4 mmol/L (98-107) L 07/13/19 03:55 Carbon Dioxide 23 mmol/L (22-30) 07/13/19 03:55 Anion Gap 22 mmol/L 07/13/19 03:55 BUN 9 mg/dL (9-20) 07/13/19 03:55 Creatinine 0.5 mg/dL (0.8-1.5) L 07/13/19 03:55 Estimated GFR > 60 ml/min 07/13/19 03:55 BUN/Creatinine Ratio 18 % 07/13/19 03:55 Glucose 121 mg/dL (75-100) H 07/13/19 03:55 POC Glucose 120 (70-105) H 07/13/19 11:52 Osmolality 327 Mosm/kg 05/07/19 13:45 Uric Acid 18.0 mg/dL (3.5-7.6) H 05/07/19 13:45 Calcium 9.6 mg/dL (8.4-10.2) 07/13/19 03:55 Phosphorus 3.70 mg/dL (2.5-4.5) 06/10/19 05:45 Magnesium 1.60 mg/dL (1.7-2.3) L 06/26/19 04:43 Iron 45 ug/dL (49-181) L 06/20/19 09:12 TIBC 110 mcg/dL (250-450) L 06/20/19 09:12 Ferritin 315.2 ng/mL (13.0-400.0) 06/20/19 09:12 Total Bilirubin 0.50 mg/dL (0.1-1.2) 06/08/19 04:20 AST 23 units/L (5-40) 06/08/19 04:20 ALT 66 units/L (7-56) H 06/08/19 04:20 Alkaline Phosphatase 59 units/L (35-129) 06/08/19 04:20 Total Creatine Kinase 131 units/L (55-170) 05/02/19 04:41 CK-MB (CK-2) 5.2 ng/mL (0.0-4.0) H 05/02/19 04:41 CK-MB (CK-2) Rel Index 3.9 (0-4) 05/02/19 04:41 Troponin T 0.067 ng/mL (0.00-0.029) H D 05/02/19 04:41 NT-Pro-B Natriuret Pep 6831 pg/mL (0-450) H 05/01/19 Unknown Total Protein 5.5 g/dL (6.3-8.2) L 06/08/19 04:20 Albumin 2.9 g/dL (3.9-5) L 06/08/19 04:20 Albumin/Globulin Ratio 1.1 % 06/08/19 04:20 Triglycerides 210 mg/dL (2-149) H 06/19/19 04:30 Cholesterol 173 mg/dL (50-199) 05/02/19 00:06 LDL Cholesterol Direct 126 mg/dL (50-130) 05/02/19 00:06 HDL Cholesterol 18 mg/dL (40-59) L 05/02/19 00:06 Cholesterol/HDL Ratio 9.61 % 05/02/19 00:06 Serotonin Release Assay See scanned results 06/17/19 12:45 Vitamin B12 353.0 pg/mL (211-911) 06/20/19 09:12 Folate 7.01 ng/mL (7.3-26.0) L 06/20/19 09:12 Procalcitonin 0.05 ng/mL (<0.15) 06/17/19 12:45 Urine Color Yellow (Yellow) 06/17/19 12:45 Urine Turbidity Slightly-cloudy (Clear) 06/17/19 12:45 Urine pH 5.0 (5.0-7.0) 06/17/19 12:45 Ur Specific Delta 1.013 (1.003-1.030) 06/17/19 12:45 Urine Protein <15 mg/dl mg/dL (Negative) 06/17/19 12:45 Urine Glucose (UA) Neg mg/dL (Negative) 06/17/19 12:45 Urine Ketones Neg mg/dL (Negative) 06/17/19 12:45 Urine Blood Sm (Negative) 06/17/19 12:45 Urine Nitrite Neg (Negative) 06/17/19 12:45 Urine Bilirubin Neg (Negative) 06/17/19 12:45 Urine Urobilinogen < 2.0 mg/dL (<2.0) 06/17/19 12:45 Ur Leukocyte Esterase Neg (Negative) 06/17/19 12:45 Urine WBC (Auto) 2.0 /HPF (0.0-6.0) 06/17/19 12:45 Urine RBC (Auto) 2.0 /HPF (0.0-6.0) 06/17/19 12:45 U Epithel Cells (Auto) < 1.0 /HPF (0-13.0) 06/17/19 12:45 Urine Bacteria (Auto) 1+ /HPF (Negative) 05/20/19 12:00 Uric Acid Crystals 3+ 05/03/19 10:55 Urine Mucus Few /HPF 06/17/19 12:45 Urine Yeast (Budding) 3+ /HPF 05/20/19 12:00 Urine Creatinine 292.8 mg/dL (0.1-20.0) H 05/07/19 22:40 Urine Sodium 11 mmol/L 05/07/19 22:40 Urine Total Protein 269 mg/dL (5-11.8) H 05/07/19 22:40 Vancomycin Trough 20.5 ug/mL (5.0-20.0) H 05/15/19 09:00 Random Vancomycin 11.5 ug/mL (0-40.0) 05/27/19 06:00 AMNA Screen Negative (Negative) 05/07/19 13:45 Heparin-induced Plt Ab Negative (Negative) 06/17/19 12:45 UF Heparin High Dose 13 % Release 06/17/19 12:45 YUNG UFH Low Dose 0.1 8 % Release 06/17/19 12:45 YUNG UFH Low Dose 0.5 7 % Release 06/17/19 12:45 Hepatitis A IgM Ab Non-reactive (NonReactive) 05/07/19 13:45 Hep Bs Antigen Non-reactive (Negative) 05/07/19 13:45 Hep B Core IgM Ab Non-reactive (NonReactive) 05/07/19 13:45 Hepatitis C Antibody Non-reactive (NonReactive) 05/07/19 13:45 Influenza A (Rapid) Negative (Negative) 06/17/19 11:35 Influenza B (Rapid) Negative (Negative) 06/17/19 11:35 Active Medications - Current Medications Current Medications: Generic Name Dose Route Start Last Admin Trade Name Freq PRN Reason Stop Dose Admin Acetaminophen 650 mg 07/02/19 23:56 07/13/19 05:18 Tylenol PO 650 mg Q4H PRN Administration Pain, Mild (1-3) Amlodipine Besylate 10 mg 06/25/19 11:00 07/13/19 10:20 Amlodipine PO 10 mg DAILY VICKEY Administration Lipase/Protease/Amylase 1 each 05/14/19 15:01 Pancremannie Fletcher 10,500 Unit FEEDTUBE PRN PRN For Clogged Feeding Tube Apixaban 2.5 mg 06/23/19 22:00 07/13/19 10:21 Eliquis PO 2.5 mg Q12HR VICKEY Administration Protocol Dextrose 50 gm 05/01/19 20:24 D50w (25gm) Vial IV Q30MIN PRN Hypoglycemia Protocol Famotidine 20 mg 06/17/19 10:00 07/13/19 10:20 Pepcid PO 20 mg BID VICKEY Administration Ferrous Sulfate 308 mg 06/18/19 12:00 07/13/19 10:21 Ferrous Sulfate PO 308 mg QDAY VICKEY Administration Hydrochlorothiazide 25 mg 06/26/19 11:00 07/13/19 10:20 Hctz PO 25 mg QDAY VICKEY Administration Hydrophilic Ointment 1 applic 06/16/19 17:34 Vaseline Lip Therapy TP Q2HR PRN Dry Lips Insulin Human Lispro 0 unit 06/01/19 14:00 07/13/19 12:33 Humalog SUB-Q Not Given Q6HR [facility] Protocol Labetalol HCl 200 mg 06/28/19 10:00 07/13/19 05:10 Labetalol PO 200 mg Q8HR VICKEY Administration Multi-Ingred Cream/Lotion/Oil/Oint 1 applic 06/16/19 18:00 Artificial Tears Ophth Oint OU Q4HR PRN Dry Eye(s) Multivitamins 5 ml 06/29/19 12:00 07/13/19 10:52 Centrum Liq PO 5 ml QDAY VICKEY Administration Potassium Chloride 40 meq 06/19/19 10:00 07/13/19 10:21 Potassium Chloride FEEDTUBE 40 meq QDAY VICKEY Administration Scopolamine 1 each 06/27/19 09:00 07/12/19 11:19 Transderm-Scop TD 1 each Q3D VICKEY Administration Simple Syrup 15 ml 05/14/19 15:01 Simple Syrup FEEDTUBE PRN PRN Hypoglycemia Simple Syrup 30 ml 05/14/19 15:01 Simple Syrup FEEDTUBE PRN PRN Hypoglycemia Sodium Bicarbonate 325 mg 05/14/19 15:01 Sodium Bicarbonate FEEDTUBE PRN PRN For Clogged Feeding Tube Nutrition/Malnutrition Assess - Dietary Evaluation Nutrition/Malnutrition Findings: Nutrition Notes Start: 05/04/19 12:54 Freq: Status: Active Protocol: Document 07/08/19 09:59 CT (Rec: 07/08/19 10:02 CT [id number]) Co-Sign 07/08/19 09:59 LP Nutrition Notes Initial or Follow up Reassessment Current Diagnosis Acute Kidney Injury,Sepsis, Respiratory Failure Other Pertinent Diagnosis HD Current Diet Osmolite 1.5 at 60 ml/hr Labs/Tests Cr 0.5 Glu 117 Pertinent Medications Humalog Height 6 ft 4 in Weight 189.8 kg [place] Body Weight (kg) 91.81 BMI 50.9 Weight Status Morbidly Obese Subjective/Other Information Osmolite running at 60 ml/hr at time of visit. Pt tolerating TF. Percent of energy/protein needs met: 100%/100% Burn Absent Trauma Absent GI Symptoms None Current % PO Negligible Minimum of two criteria No Fluid Accumulation Moderate to Severe (severe) #1 Nutrition Diagnosis Inadequate oral intake Diagnosis Progress(for reassessment Continues documentation) Is patient on ventilator? Yes Is Patient Ambulatory and/or Out of Bed No REE-([facility]-confined to bed) 3534.288 Kcal/Kg value to use for calculation 11 Approximate Energy Requirements Using 8 kcal/Kg Calculation Used for Recommendations Kcal/kg Additional Notes PRO needs: 73-91g (0.8-1 g/kg IBW 91kg CARLA resolved) Fluid needs: 1 ml/kcal Nutrition Intervention Change Diet Order: Continue TF Nutrition Support: Osmolite at 60 ml/hr Flush 400ml q4h for hypernatremia. And 200ml q4h once resolved Kcal 2,160 Protein (gm) 90 Fluid (mL) 1,097 Goal #1 TF tolerance Goal #2 Meet at least 80% of PRO/kcal needs via TF Anticipated Discharge Needs: Unable to determine at this time Follow-Up By: 07/15/19 Additional Comments F/U for TF tolerance
[2019-07-14] MEDS: INSULIN LISPRO 100 UNIT/ML SUB-Q SCH ×4 (01:50→18:25)
[2019-07-14] MEDS: hydroCHLOROthiazide 25 MG TAB PO SCH (10:03)
[2019-07-14] MEDS: amLODIPine 10 MG TAB PO SCH (10:03)
[2019-07-14] MEDS: APIXABAN 2.5 MG TAB PO SCH ×2 (10:03→21:13)
[2019-07-14] MEDS: POTASSIUM CHLORIDE 20 MEQ PACKET FEEDTUBE SCH (10:03)
[2019-07-14] MEDS: FERROUS SULFATE 308 MG (62mg Elemental Iron) / 7 ML ELIXIR PO SCH (10:04)
[2019-07-14] MEDS: MULTIVITAMINS 5 ML ORAL LIQUID PO SCH (10:04)
[2019-07-14] MEDS: FAMOTIDINE 20 MG TAB PO SCH ×2 (10:04→21:14)
--- NOTE | 2019-07-14 11:08 | Progress Note ---
Assessment and Plan - Patient Problems (1) Acute heart failure with preserved ejection fraction Current Visit: Yes Status: Acute Plan to address problem: Patient congestive heart failure (2) Acute hypernatremia Current Visit: Yes Status: Acute Plan to address problem: Hypernatremia has resolved. (3) Acute on chronic respiratory failure Current Visit: Yes Status: Acute Qualifiers: Respiratory failure complication: hypoxia Qualified Code(s): J96.21 - Acute and chronic respiratory failure with hypoxia Plan to address problem: Acute on chronic respiratory failure. Patient unable to wean status post tracheostomy. Underlying etiology obstructive sleep apnea. Obesity hypoventilation syndrome.cont to wean as tolerated (4) Anemia Current Visit: Yes Status: Acute Plan to address problem: Anemia stable. Patient does have thrombocytopenia resolved. (5) Noncompliance with CPAP treatment Current Visit: Yes Status: Acute History Interval history: At present patient has no new changes overnight. Hospital course unremarkable over the past 72 hours. Remains chronically ill. Intubated. Hospitalist Physical - Constitutional Vitals: Temp Pulse Resp BP Pulse Ox 99.2 F 93 H 28 H 132/86 94 07/14/19 08:00 07/14/19 10:03 07/14/19 08:01 07/14/19 10:03 07/14/19 08:01 General appearance: Present: no acute distress, obese, other (tracheostomy /T- piece) - EENT Eyes: Present: PERRL, EOM intact, irregular pupil - Neck Neck: Present: supple, normal ROM - Respiratory Respiratory effort: normal Respiratory: bilateral: diminished - Cardiovascular Rhythm: regular - Extremities Extremities: no ischemia, pulses intact, pulses symmetrical, normal temperature, normal color, Full ROM Extremity abnormal: edema Peripheral Pulses: within normal limits - Abdominal General gastrointestinal: soft, non-tender, non-distended, hypoactive bowel sounds, no hepatomegaly, no splenomegaly - Integumentary Integumentary: Present: clear, dry, erythema Results - Labs CBC & Chem 7: 07/13/19 03:55 07/13/19 03:55 Labs: Laboratory Last Values WBC 11.4 K/mm3 (4.5-11.0) H 07/13/19 03:55 RBC 3.18 M/mm3 (3.65-5.03) L 07/13/19 03:55 Hgb 8.8 gm/dl (11.8-15.2) L 07/13/19 03:55 Hct 27.4 % (35.5-45.6) L 07/13/19 03:55 MCV 86 fl (84-94) 07/13/19 03:55 MCH 28 pg (28-32) 07/13/19 03:55 MCHC 32 % (32-34) 07/13/19 03:55 RDW 19.1 % (13.2-15.2) H 07/13/19 03:55 Plt Count 440 K/mm3 (140-440) 07/13/19 03:55 Lymph % (Auto) 8.3 % (13.4-35.0) L 07/01/19 07:58 [place] % (Auto) 10.0 % (0.0-7.3) H 07/01/19 07:58 Eos % (Auto) 1.5 % (0.0-4.3) 07/01/19 07:58 Baso % (Auto) 0.8 % (0.0-1.8) 07/01/19 07:58 Lymph # 0.9 K/mm3 (1.2-5.4) L 07/01/19 07:58 [place] # 1.2 K/mm3 (0.0-0.8) H 07/01/19 07:58 Eos # 0.2 K/mm3 (0.0-0.4) 07/01/19 07:58 Baso # 0.1 K/mm3 (0.0-0.1) 07/01/19 07:58 Add Manual Diff Complete 07/08/19 04:00 Total Counted 100 07/08/19 04:00 Seg Neutrophils % 79.4 % (40.0-70.0) H 07/01/19 07:58 Seg Neuts % (Manual) 76.0 % (40.0-70.0) H 07/08/19 04:00 Band Neutrophils % 0 % 07/08/19 04:00 Lymphocytes % (Manual) 16.0 % (13.4-35.0) 07/08/19 04:00 Reactive Lymphs % (Man) 0 % 07/08/19 04:00 Monocytes % (Manual) 6.0 % (0.0-7.3) 07/08/19 04:00 Eosinophils % (Manual) 2.0 % (0.0-4.3) 07/08/19 04:00 Basophils % (Manual) 0 % (0.0-1.8) 07/08/19 04:00 Metamyelocytes % 0 % 07/08/19 04:00 Myelocytes % 0 % 07/08/19 04:00 Promyelocytes % 0 % 07/08/19 04:00 Blast Cells % 0 % 07/08/19 04:00 Nucleated RBC % Not Reportable 07/08/19 04:00 Seg Neutrophils # 9.1 K/mm3 (1.8-7.7) H 07/01/19 07:58 Seg Neutrophils # Man 8.4 K/mm3 (1.8-7.7) H 07/08/19 04:00 Band Neutrophils # 0.0 K/mm3 07/08/19 04:00 Lymphocytes # (Manual) 1.8 K/mm3 (1.2-5.4) 07/08/19 04:00 Abs React Lymphs (Man) 0.0 K/mm3 07/08/19 04:00 Monocytes # (Manual) 0.7 K/mm3 (0.0-0.8) 07/08/19 04:00 Eosinophils # (Manual) 0.2 K/mm3 (0.0-0.4) 07/08/19 04:00 Basophils # (Manual) 0.0 K/mm3 (0.0-0.1) 07/08/19 04:00 Metamyelocytes # 0.0 K/mm3 07/08/19 04:00 Myelocytes # 0.0 K/mm3 07/08/19 04:00 Promyelocytes # 0.0 K/mm3 07/08/19 04:00 Blast Cells # 0.0 K/mm3 07/08/19 04:00 WBC Morphology Not Reportable 07/08/19 04:00 Hypersegmented Neuts Not Reportable 07/08/19 04:00 Hyposegmented Neuts Not Reportable 07/08/19 04:00 Hypogranular Neuts Not Reportable 07/08/19 04:00 Smudge Cells Not Reportable 07/08/19 04:00 Toxic Granulation Not Reportable 07/08/19 04:00 Toxic Vacuolation Not Reportable 07/08/19 04:00 Dohle Bodies Not Reportable 07/08/19 04:00 Pelger-Huet Anomaly Not Reportable 07/08/19 04:00 Renea Rods Not Reportable 07/08/19 04:00 Platelet Estimate Consistent w auto 07/08/19 04:00 Clumped Platelets Not Reportable 07/08/19 04:00 Plt Clumps, EDTA Not Reportable 07/08/19 04:00 Large Platelets Not Reportable 07/08/19 04:00 Giant Platelets Not Reportable 07/08/19 04:00 Platelet Satelliting Not Reportable 07/08/19 04:00 Plt Morphology Comment Not Reportable 07/08/19 04:00 RBC Morphology Not Reportable 07/08/19 04:00 Dimorphic RBCs Not Reportable 07/08/19 04:00 Polychromasia Not Reportable 07/08/19 04:00 Hypochromasia Not Reportable 07/08/19 04:00 Poikilocytosis Not Reportable 07/08/19 04:00 Anisocytosis 1+ 07/08/19 04:00 Microcytosis Not Reportable 07/08/19 04:00 Macrocytosis Not Reportable 07/08/19 04:00 Spherocytes Not Reportable 07/08/19 04:00 Pappenheimer Bodies Not Reportable 07/08/19 04:00 Sickle Cells Not Reportable 07/08/19 04:00 Target Cells Not Reportable 07/08/19 04:00 Tear Drop Cells Not Reportable 07/08/19 04:00 Ovalocytes Not Reportable 07/08/19 04:00 Stomatocytes 3+ 06/23/19 05:24 Helmet Cells Not Reportable 07/08/19 04:00 [place] Bodies Not Reportable 07/08/19 04:[address] [place] Rings Not Reportable 07/08/19 04:00 [place] Cells Not Reportable 07/08/19 04:00 Bite Cells Not Reportable 07/08/19 04:00 Crenated Cell Not Reportable 07/08/19 04:00 Elliptocytes Not Reportable 07/08/19 04:00 Acanthocytes (Spur) Not Reportable 07/08/19 04:00 Rouleaux Not Reportable 07/08/19 04:00 Hemoglobin C Crystals Not Reportable 07/08/19 04:00 Schistocytes Not Reportable 07/08/19 04:00 Malaria parasites Not Reportable 07/08/19 04:00 Syed Bodies Not Reportable 07/08/19 04:00 Hem Pathologist Commnt No 07/08/19 04:00 PT 15.4 Sec. (12.2-14.9) H 05/01/19 Unknown INR 1.23 (0.87-1.13) H 05/01/19 Unknown APTT 22.7 Sec. (24.2-36.6) L 05/01/19 Unknown Fibrinogen 194 mg/dl (211-480) L 06/17/19 12:45 Heparin Anti-Xa, Unfract Negative (Negative) 06/17/19 12:45 POC ABG pH 7.462 (7.35-7.45) H 06/05/19 03:52 ABG pH 7.469 pH Units (7.350-7.450) H 06/23/19 02:00 POC ABG pCO2 39.8 (35-45) 06/05/19 03:52 ABG pCO2 39.4 mm Hg 06/23/19 02:00 POC ABG pO2 86 (80-105) 06/05/19 03:52 ABG pO2 58.7 mm Hg (80.0-90.0) L 06/23/19 02:00 POC ABG HCO3 28.4 (22-26 mml/L) 06/05/19 03:52 ABG HCO3 28.0 mmol/L (20.0-26.0) H 06/23/19 02:00 POC ABG Total CO2 30 (23-27mmol/L) 06/05/19 03:52 POC ABG O2 Sat 97 06/05/19 03:52 ABG O2 Saturation 94.6 % (95.0-99.0) L 06/23/19 02:00 ABG O2 Content 9.2 (0.0-44) 06/23/19 02:00 POC ABG Base Excess 5 ((-2) - (+3)mmol/L) 06/05/19 03:52 ABG Base Excess 4.0 mmol/L (-2.0-3.0) H 06/23/19 02:00 ABG Hemoglobin 7.1 gm/dl (14.0-18.0) L 06/23/19 02:00 ABG Carboxyhemoglobin 2.0 % (0.0-5.0) 06/23/19 02:00 ABG Methemoglobin 0.5 % (0.0-1.5) 06/23/19 02:00 Oxyhemoglobin 92.2 % (95.0-99.0) L 06/23/19 02:00 FiO2 30 % 06/23/19 02:00 Sodium 138 mmol/L (137-145) 07/13/19 03:55 Potassium 4.0 mmol/L (3.6-5.0) 07/13/19 03:55 Chloride 97.4 mmol/L (98-107) L 07/13/19 03:55 Carbon Dioxide 23 mmol/L (22-30) 07/13/19 03:55 Anion Gap 22 mmol/L 07/13/19 03:55 BUN 9 mg/dL (9-20) 07/13/19 03:55 Creatinine 0.5 mg/dL (0.8-1.5) L 07/13/19 03:55 Estimated GFR > 60 ml/min 07/13/19 03:55 BUN/Creatinine Ratio 18 % 07/13/19 03:55 Glucose 121 mg/dL (75-100) H 07/13/19 03:55 POC Glucose 84 (70-105) 07/14/19 05:42 Osmolality 327 Mosm/kg 05/07/19 13:45 Uric Acid 18.0 mg/dL (3.5-7.6) H 05/07/19 13:45 Calcium 9.6 mg/dL (8.4-10.2) 07/13/19 03:55 Phosphorus 3.70 mg/dL (2.5-4.5) 06/10/19 05:45 Magnesium 1.60 mg/dL (1.7-2.3) L 06/26/19 04:43 Iron 45 ug/dL (49-181) L 06/20/19 09:12 TIBC 110 mcg/dL (250-450) L 06/20/19 09:12 Ferritin 315.2 ng/mL (13.0-400.0) 06/20/19 09:12 Total Bilirubin 0.50 mg/dL (0.1-1.2) 06/08/19 04:20 AST 23 units/L (5-40) 06/08/19 04:20 ALT 66 units/L (7-56) H 06/08/19 04:20 Alkaline Phosphatase 59 units/L (35-129) 06/08/19 04:20 Total Creatine Kinase 131 units/L (55-170) 05/02/19 04:41 CK-MB (CK-2) 5.2 ng/mL (0.0-4.0) H 05/02/19 04:41 CK-MB (CK-2) Rel Index 3.9 (0-4) 05/02/19 04:41 Troponin T 0.067 ng/mL (0.00-0.029) H D 05/02/19 04:41 NT-Pro-B Natriuret Pep 6831 pg/mL (0-450) H 05/01/19 Unknown Total Protein 5.5 g/dL (6.3-8.2) L 06/08/19 04:20 Albumin 2.9 g/dL (3.9-5) L 06/08/19 04:20 Albumin/Globulin Ratio 1.1 % 06/08/19 04:20 Triglycerides 210 mg/dL (2-149) H 06/19/19 04:30 Cholesterol 173 mg/dL (50-199) 05/02/19 00:06 LDL Cholesterol Direct 126 mg/dL (50-130) 05/02/19 00:06 HDL Cholesterol 18 mg/dL (40-59) L 05/02/19 00:06 Cholesterol/HDL Ratio 9.61 % 05/02/19 00:06 Serotonin Release Assay See scanned results 06/17/19 12:45 Vitamin B12 353.0 pg/mL (211-911) 06/20/19 09:12 Folate 7.01 ng/mL (7.3-26.0) L 06/20/19 09:12 Procalcitonin 0.05 ng/mL (<0.15) 06/17/19 12:45 Urine Color Yellow (Yellow) 06/17/19 12:45 Urine Turbidity Slightly-cloudy (Clear) 06/17/19 12:45 Urine pH 5.0 (5.0-7.0) 06/17/19 12:45 Ur Specific [place] 1.013 (1.003-1.030) 06/17/19 12:45 Urine Protein <15 mg/dl mg/dL (Negative) 06/17/19 12:45 Urine Glucose (UA) Neg mg/dL (Negative) 06/17/19 12:45 Urine Ketones Neg mg/dL (Negative) 06/17/19 12:45 Urine Blood Sm (Negative) 06/17/19 12:45 Urine Nitrite Neg (Negative) 06/17/19 12:45 Urine Bilirubin Neg (Negative) 06/17/19 12:45 Urine Urobilinogen < 2.0 mg/dL (<2.0) 06/17/19 12:45 Ur Leukocyte Esterase Neg (Negative) 06/17/19 12:45 Urine WBC (Auto) 2.0 /HPF (0.0-6.0) 06/17/19 12:45 Urine RBC (Auto) 2.0 /HPF (0.0-6.0) 06/17/19 12:45 U Epithel Cells (Auto) < 1.0 /HPF (0-13.0) 06/17/19 12:45 Urine Bacteria (Auto) 1+ /HPF (Negative) 05/20/19 12:00 Uric Acid Crystals 3+ 05/03/19 10:55 Urine Mucus Few /HPF 06/17/19 12:45 Urine Yeast (Budding) 3+ /HPF 05/20/19 12:00 Urine Creatinine 292.8 mg/dL (0.1-20.0) H 05/07/19 22:40 Urine Sodium 11 mmol/L 05/07/19 22:40 Urine Total Protein 269 mg/dL (5-11.8) H 05/07/19 22:40 Vancomycin Trough 20.5 ug/mL (5.0-20.0) H 05/15/19 09:00 Random Vancomycin 11.5 ug/mL (0-40.0) 05/27/19 06:00 AMNA Screen Negative (Negative) 05/07/19 13:45 Heparin-induced Plt Ab Negative (Negative) 06/17/19 12:45 UF Heparin High Dose 13 % Release 06/17/19 12:45 YUNG UFH Low Dose 0.1 8 % Release 06/17/19 12:45 YUNG UFH Low Dose 0.5 7 % Release 06/17/19 12:45 Hepatitis A IgM Ab Non-reactive (NonReactive) 05/07/19 13:45 Hep Bs Antigen Non-reactive (Negative) 05/07/19 13:45 Hep B Core IgM Ab Non-reactive (NonReactive) 05/07/19 13:45 Hepatitis C Antibody Non-reactive (NonReactive) 05/07/19 13:45 Influenza A (Rapid) Negative (Negative) 06/17/19 11:35 Influenza B (Rapid) Negative (Negative) 06/17/19 11:35 Active Medications - Current Medications Current Medications: Generic Name Dose Route Start Last Admin Trade Name Freq PRN Reason Stop Dose Admin Acetaminophen 650 mg 07/02/19 23:56 07/13/19 05:18 Tylenol PO 650 mg Q4H PRN Administration Pain, Mild (1-3) Amlodipine Besylate 10 mg 06/25/19 11:00 07/14/19 10:03 Amlodipine PO 10 mg DAILY VICKEY Administration Apixaban 2.5 mg 06/23/19 22:00 07/14/19 10:03 Eliquis PO 2.5 mg Q12HR VICKEY Administration Protocol Dextrose 50 gm 05/01/19 20:24 D50w (25gm) Vial IV Q30MIN PRN Hypoglycemia Protocol Famotidine 20 mg 06/17/19 10:00 07/14/19 10:04 Pepcid PO 20 mg BID VICKEY Administration Ferrous Sulfate 308 mg 06/18/19 12:00 07/14/19 10:04 Ferrous Sulfate PO 308 mg QDAY VICKEY Administration Hydrochlorothiazide 25 mg 06/26/19 11:00 07/14/19 10:03 Hctz PO 25 mg QDAY VICKEY Administration Hydrophilic Ointment 1 applic 06/16/19 17:34 Vaseline Lip Therapy TP Q2HR PRN Dry Lips Insulin Human Lispro 0 unit 06/01/19 14:00 07/14/19 06:35 Humalog SUB-Q Not Given Q6HR VICKEY Protocol Labetalol HCl 200 mg 06/28/19 10:00 07/14/19 06:28 Labetalol PO 200 mg Q8HR VICKEY Administration Multi-Ingred Cream/Lotion/Oil/Oint 1 applic 06/16/19 18:00 Artificial Tears Ophth Oint OU Q4HR PRN Dry Eye(s) Multivitamins 5 ml 06/29/19 12:00 07/14/19 10:04 Centrum Liq PO 5 ml QDAY VICKEY Administration Potassium Chloride 40 meq 06/19/19 10:00 07/14/19 10:03 Potassium Chloride FEEDTUBE 40 meq QDAY VICKEY Administration Scopolamine 1 each 06/27/19 09:00 07/12/19 11:19 Transderm-Scop TD 1 each Q3D VICKEY Administration Nutrition/Malnutrition Assess - Dietary Evaluation Nutrition/Malnutrition Findings: Nutrition Notes Start: 05/04/19 12:54 Freq: Status: Active Protocol: Document 07/08/19 09:59 CT (Rec: 07/08/19 10:02 CT [id number]) Co-Sign 07/08/19 09:59 LP Nutrition Notes Initial or Follow up Reassessment Current Diagnosis Acute Kidney Injury,Sepsis, Respiratory Failure Other Pertinent Diagnosis HD Current Diet Osmolite 1.5 at 60 ml/hr Labs/Tests Cr 0.5 Glu 117 Pertinent Medications Humalog Height 6 ft 4 in Weight 189.8 kg [place] Body Weight (kg) 91.81 BMI 50.9 Weight Status Morbidly Obese Subjective/Other Information Osmolite running at 60 ml/hr at time of visit. Pt tolerating TF. Percent of energy/protein needs met: 100%/100% Burn Absent Trauma Absent GI Symptoms None Current % PO Negligible Minimum of two criteria No Fluid Accumulation Moderate to Severe (severe) #1 Nutrition Diagnosis Inadequate oral intake Diagnosis Progress(for reassessment Continues documentation) Is patient on ventilator? Yes Is Patient Ambulatory and/or Out of Bed No REE-([facility]-confined to bed) 3534.288 Kcal/Kg value to use for calculation 11 Approximate Energy Requirements Using 2088 kcal/Kg Calculation Used for Recommendations Kcal/kg Additional Notes PRO needs: 73-91g (0.8-1 g/kg IBW 91kg CARLA resolved) Fluid needs: 1 ml/kcal Nutrition Intervention Change Diet Order: Continue TF Nutrition Support: Osmolite at 60 ml/hr Flush 400ml q4h for hypernatremia. And 200ml q4h once resolved Kcal 2,160 Protein (gm) 90 Fluid (mL) 1,097 Goal #1 TF tolerance Goal #2 Meet at least 80% of PRO/kcal needs via TF Anticipated Discharge Needs: Unable to determine at this time Follow-Up By: 07/15/19 Additional Comments F/U for TF tolerance
[2019-07-15] MEDS: INSULIN LISPRO 100 UNIT/ML SUB-Q SCH ×4 (00:15→17:32)
[2019-07-15] MEDS: POTASSIUM CHLORIDE 20 MEQ PACKET FEEDTUBE SCH (09:06)
[2019-07-15] MEDS: FERROUS SULFATE 308 MG (62mg Elemental Iron) / 7 ML ELIXIR PO SCH (09:06)
[2019-07-15] MEDS: MULTIVITAMINS 5 ML ORAL LIQUID PO SCH (09:06)
[2019-07-15] MEDS: SCOPOLAMINE TRANSDERMAL PATCH 72 HR TD SCH (09:06)
[2019-07-15] MEDS: APIXABAN 2.5 MG TAB PO SCH ×2 (09:06→21:57)
[2019-07-15] MEDS: FAMOTIDINE 20 MG TAB PO SCH ×2 (09:07→21:58)
[2019-07-15] MEDS: hydroCHLOROthiazide 25 MG TAB PO SCH (09:07)
[2019-07-15] MEDS: amLODIPine 10 MG TAB PO SCH (09:07)
[2019-07-15] MEDS ORDERED: LIPASE 10,500/PROTEASE 25,000/AMYLASE 43,750 (UNITS) DR CAP FEEDTUBE PRN (12:26)
[2019-07-15] MEDS ORDERED: SODIUM BICARBONATE 325 MG TAB FEEDTUBE PRN (12:26)
[2019-07-15] MEDS ORDERED: SIMPLE SYRUP 15 ML FEEDTUBE PRN ×2 (12:26)
--- NOTE | 2019-07-15 14:40 | Progress Note ---
Assessment and Plan Assessment and plan: /Febrile illness - spiking low grade temp intermittently, patient with fever again today. - Internal jugular tunneled hemodialysis catheter removed - negative blood Cx and UA - ID following, monitor off abx Fever again since 07/09 Repeat blood cultures today /Acute respiratory failure; vent dependent/status post trach and PEG Off ventilatory support, on T-piece, cont trach care, scheduled nebulizers Pulmonary critical following /Obesity hypoventilation syndrome Status post tracheostomy, titrate O2 sats to more than 90% /Status post cardiac arrest mild anoxic brain injury patient's mentation is improved - able to follow commend EEG was negative for seizures and neurology evaluated /Severe malnutrition Dysphasia; dw with his mom, she is agreeable to PEG tube, GS consulted Dietitian input appreciated, continue tube feeds /Anemia of chronic disease : Closely monitor H&H and transfuse as needed. 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 Now Patient is on Eliquis /-Acute kidney injury due to ATN : Requiring dialysis Resolved, nephrology following. /Hypernatremia/Hypokalemia/ hypomagnesemia: Resolved /Morbid obesity; will need weight loss program upon discharge /DVT prophylaxis; scd /Eliquis Plan of care discussed with the patient and his nurse Physical therapy/occupational therapy when patient is stable Disposition ; home with home health versus placement when patient is stable. Social and insurance issues. History Interval history: No new issues overnight. Hospitalist Physical - Constitutional Vitals: Temp Pulse Resp BP Pulse Ox 98.3 F 105 H 22 133/69 99 07/15/19 08:00 07/15/19 13:02 07/15/19 10:00 07/15/19 13:02 07/15/19 10:00 General appearance: Present: no acute distress, obese, other (tracheostomy /T- piece) - EENT Eyes: Present: PERRL, EOM intact ENT: hearing intact, clear oral mucosa, dentition normal - Neck Neck: Present: supple, normal ROM - Respiratory Respiratory effort: normal Respiratory: bilateral: CTA - Cardiovascular Rhythm: regular Heart Sounds: Present: S1 & S2. Absent: gallop, rub - Extremities Extremities: no ischemia, No edema, Full ROM - Abdominal General gastrointestinal: soft, non-tender, non-distended, normal bowel sounds - Integumentary Integumentary: Present: clear, warm, dry - Neurologic Neurologic: CNII-XII intact, moves all extremities Results - Labs CBC & Chem 7: 07/13/19 03:55 07/13/19 03:55 Labs: Laboratory Last Values WBC 11.4 K/mm3 (4.5-11.0) H 07/13/19 03:55 RBC 3.18 M/mm3 (3.65-5.03) L 07/13/19 03:55 Hgb 8.8 gm/dl (11.8-15.2) L 07/13/19 03:55 Hct 27.4 % (35.5-45.6) L 07/13/19 03:55 MCV 86 fl (84-94) 07/13/19 03:55 MCH 28 pg (28-32) 07/13/19 03:55 MCHC 32 % (32-34) 07/13/19 03:55 RDW 19.1 % (13.2-15.2) H 07/13/19 03:55 Plt Count 440 K/mm3 (140-440) 07/13/19 03:55 Lymph % (Auto) 8.3 % (13.4-35.0) L 07/01/19 07:58 [place] % (Auto) 10.0 % (0.0-7.3) H 07/01/19 07:58 Eos % (Auto) 1.5 % (0.0-4.3) 07/01/19 07:58 Baso % (Auto) 0.8 % (0.0-1.8) 07/01/19 07:58 Lymph # 0.9 K/mm3 (1.2-5.4) L 07/01/19 07:58 [place] # 1.2 K/mm3 (0.0-0.8) H 07/01/19 07:58 Eos # 0.2 K/mm3 (0.0-0.4) 07/01/19 07:58 Baso # 0.1 K/mm3 (0.0-0.1) 07/01/19 07:58 Add Manual Diff Complete 07/08/19 04:00 Total Counted 100 07/08/19 04:00 Seg Neutrophils % 79.4 % (40.0-70.0) H 07/01/19 07:58 Seg Neuts % (Manual) 76.0 % (40.0-70.0) H 07/08/19 04:00 Band Neutrophils % 0 % 07/08/19 04:00 Lymphocytes % (Manual) 16.0 % (13.4-35.0) 07/08/19 04:00 Reactive Lymphs % (Man) 0 % 07/08/19 04:00 Monocytes % (Manual) 6.0 % (0.0-7.3) 07/08/19 04:00 Eosinophils % (Manual) 2.0 % (0.0-4.3) 07/08/19 04:00 Basophils % (Manual) 0 % (0.0-1.8) 07/08/19 04:00 Metamyelocytes % 0 % 07/08/19 04:00 Myelocytes % 0 % 07/08/19 04:00 Promyelocytes % 0 % 07/08/19 04:00 Blast Cells % 0 % 07/08/19 04:00 Nucleated RBC % Not Reportable 07/08/19 04:00 Seg Neutrophils # 9.1 K/mm3 (1.8-7.7) H 07/01/19 07:58 Seg Neutrophils # Man 8.4 K/mm3 (1.8-7.7) H 07/08/19 04:00 Band Neutrophils # 0.0 K/mm3 07/08/19 04:00 Lymphocytes # (Manual) 1.8 K/mm3 (1.2-5.4) 07/08/19 04:00 Abs React Lymphs (Man) 0.0 K/mm3 07/08/19 04:00 Monocytes # (Manual) 0.7 K/mm3 (0.0-0.8) 07/08/19 04:00 Eosinophils # (Manual) 0.2 K/mm3 (0.0-0.4) 07/08/19 04:00 Basophils # (Manual) 0.0 K/mm3 (0.0-0.1) 07/08/19 04:00 Metamyelocytes # 0.0 K/mm3 07/08/19 04:00 Myelocytes # 0.0 K/mm3 07/08/19 04:00 Promyelocytes # 0.0 K/mm3 07/08/19 04:00 Blast Cells # 0.0 K/mm3 07/08/19 04:00 WBC Morphology Not Reportable 07/08/19 04:00 Hypersegmented Neuts Not Reportable 07/08/19 04:00 Hyposegmented Neuts Not Reportable 07/08/19 04:00 Hypogranular Neuts Not Reportable 07/08/19 04:00 Smudge Cells Not Reportable 07/08/19 04:00 Toxic Granulation Not Reportable 07/08/19 04:00 Toxic Vacuolation Not Reportable 07/08/19 04:00 Dohle Bodies Not Reportable 07/08/19 04:00 Pelger-Huet Anomaly Not Reportable 07/08/19 04:00 Renea Rods Not Reportable 07/08/19 04:00 Platelet Estimate Consistent w auto 07/08/19 04:00 Clumped Platelets Not Reportable 07/08/19 04:00 Plt Clumps, EDTA Not Reportable 07/08/19 04:00 Large Platelets Not Reportable 07/08/19 04:00 Giant Platelets Not Reportable 07/08/19 04:00 Platelet Satelliting Not Reportable 07/08/19 04:00 Plt Morphology Comment Not Reportable 07/08/19 04:00 RBC Morphology Not Reportable 07/08/19 04:00 Dimorphic RBCs Not Reportable 07/08/19 04:00 Polychromasia Not Reportable 07/08/19 04:00 Hypochromasia Not Reportable 07/08/19 04:00 Poikilocytosis Not Reportable 07/08/19 04:00 Anisocytosis 1+ 07/08/19 04:00 Microcytosis Not Reportable 07/08/19 04:00 Macrocytosis Not Reportable 07/08/19 04:00 Spherocytes Not Reportable 07/08/19 04:00 Pappenheimer Bodies Not Reportable 07/08/19 04:00 Sickle Cells Not Reportable 07/08/19 04:00 Target Cells Not Reportable 07/08/19 04:00 Tear Drop Cells Not Reportable 07/08/19 04:00 Ovalocytes Not Reportable 07/08/19 04:00 Stomatocytes 3+ 06/23/19 05:24 Helmet Cells Not Reportable 07/08/19 04:00 [place] Bodies Not Reportable 07/08/19 04:00 [place] Rings Not Reportable 07/08/19 04:00 [place] Cells Not Reportable 07/08/19 04:00 Bite Cells Not Reportable 07/08/19 04:00 Crenated Cell Not Reportable 07/08/19 04:00 Elliptocytes Not Reportable 07/08/19 04:00 Acanthocytes (Spur) Not Reportable 07/08/19 04:00 Rouleaux Not Reportable 07/08/19 04:00 Hemoglobin C Crystals Not Reportable 07/08/19 04:00 Schistocytes Not Reportable 07/08/19 04:00 Malaria parasites Not Reportable 07/08/19 04:00 Syed Bodies Not Reportable 07/08/19 04:00 Hem Pathologist Commnt No 07/08/19 04:00 PT 15.4 Sec. (12.2-14.9) H 05/01/19 Unknown INR 1.23 (0.87-1.13) H 05/01/19 Unknown APTT 22.7 Sec. (24.2-36.6) L 05/01/19 Unknown Fibrinogen 194 mg/dl (211-480) L 06/17/19 12:45 Heparin Anti-Xa, Unfract Negative (Negative) 06/17/19 12:45 POC ABG pH 7.462 (7.35-7.45) H 06/05/19 03:52 ABG pH 7.469 pH Units (7.350-7.450) H 06/23/19 02:00 POC ABG pCO2 39.8 (35-45) 06/05/19 03:52 ABG pCO2 39.4 mm Hg 06/23/19 02:00 POC ABG pO2 86 (80-105) 06/05/19 03:52 ABG pO2 58.7 mm Hg (80.0-90.0) L 06/23/19 02:00 POC ABG HCO3 28.4 (22-26 mml/L) 06/05/19 03:52 ABG HCO3 28.0 mmol/L (20.0-26.0) H 06/23/19 02:00 POC ABG Total CO2 30 (23-27mmol/L) 06/05/19 03:52 POC ABG O2 Sat 97 06/05/19 03:52 ABG O2 Saturation 94.6 % (95.0-99.0) L 06/23/19 02:00 ABG O2 Content 9.2 (0.0-44) 06/23/19 02:00 POC ABG Base Excess 5 ((-2) - (+3)mmol/L) 06/05/19 03:52 ABG Base Excess 4.0 mmol/L (-2.0-3.0) H 06/23/19 02:00 ABG Hemoglobin 7.1 gm/dl (14.0-18.0) L 06/23/19 02:00 ABG Carboxyhemoglobin 2.0 % (0.0-5.0) 06/23/19 02:00 ABG Methemoglobin 0.5 % (0.0-1.5) 06/23/19 02:00 Oxyhemoglobin 92.2 % (95.0-99.0) L 06/23/19 02:00 FiO2 30 % 06/23/19 02:00 Sodium 138 mmol/L (137-145) 07/13/19 03:55 Potassium 4.0 mmol/L (3.6-5.0) 07/13/19 03:55 Chloride 97.4 mmol/L (98-107) L 07/13/19 03:55 Carbon Dioxide 23 mmol/L (22-30) 07/13/19 03:55 Anion Gap 22 mmol/L 07/13/19 03:55 BUN 9 mg/dL (9-20) 07/13/19 03:55 Creatinine 0.5 mg/dL (0.8-1.5) L 07/13/19 03:55 Estimated GFR > 60 ml/min 07/13/19 03:55 BUN/Creatinine Ratio 18 % 07/13/19 03:55 Glucose 121 mg/dL (75-100) H 07/13/19 03:55 POC Glucose 114 (70-105) H 07/15/19 11:38 Osmolality 327 Mosm/kg 05/07/19 13:45 Uric Acid 18.0 mg/dL (3.5-7.6) H 05/07/19 13:45 Calcium 9.6 mg/dL (8.4-10.2) 07/13/19 03:55 Phosphorus 3.70 mg/dL (2.5-4.5) 06/10/19 05:45 Magnesium 1.60 mg/dL (1.7-2.3) L 06/26/19 04:43 Iron 45 ug/dL (49-181) L 06/20/19 09:12 TIBC 110 mcg/dL (250-450) L 06/20/19 09:12 Ferritin 315.2 ng/mL (13.0-400.0) 06/20/19 09:12 Total Bilirubin 0.50 mg/dL (0.1-1.2) 06/08/19 04:20 AST 23 units/L (5-40) 06/08/19 04:20 ALT 66 units/L (7-56) H 06/08/19 04:20 Alkaline Phosphatase 59 units/L (35-129) 06/08/19 04:20 Total Creatine Kinase 131 units/L (55-170) 05/02/19 04:41 CK-MB (CK-2) 5.2 ng/mL (0.0-4.0) H 05/02/19 04:41 CK-MB (CK-2) Rel Index 3.9 (0-4) 05/02/19 04:41 Troponin T 0.067 ng/mL (0.00-0.029) H D 05/02/19 04:41 NT-Pro-B Natriuret Pep 6831 pg/mL (0-450) H 05/01/19 Unknown Total Protein 5.5 g/dL (6.3-8.2) L 06/08/19 04:20 Albumin 2.9 g/dL (3.9-5) L 06/08/19 04:20 Albumin/Globulin Ratio 1.1 % 06/08/19 04:20 Triglycerides 210 mg/dL (2-149) H 06/19/19 04:30 Cholesterol 173 mg/dL (50-199) 05/02/19 00:06 LDL Cholesterol Direct 126 mg/dL (50-130) 05/02/19 00:06 HDL Cholesterol 18 mg/dL (40-59) L 05/02/19 00:06 Cholesterol/HDL Ratio 9.61 % 05/02/19 00:06 Serotonin Release Assay See scanned results 06/17/19 12:45 Vitamin B12 353.0 pg/mL (211-911) 06/20/19 09:12 Folate 7.01 ng/mL (7.3-26.0) L 06/20/19 09:12 Procalcitonin 0.05 ng/mL (<0.15) 06/17/19 12:45 Urine Color Yellow (Yellow) 06/17/19 12:45 Urine Turbidity Slightly-cloudy (Clear) 06/17/19 12:45 Urine pH 5.0 (5.0-7.0) 06/17/19 12:45 Ur Specific [place] 1.013 (1.003-1.030) 06/17/19 12:45 Urine Protein <15 mg/dl mg/dL (Negative) 06/17/19 12:45 Urine Glucose (UA) Neg mg/dL (Negative) 06/17/19 12:45 Urine Ketones Neg mg/dL (Negative) 06/17/19 12:45 Urine Blood Sm (Negative) 06/17/19 12:45 Urine Nitrite Neg (Negative) 06/17/19 12:45 Urine Bilirubin Neg (Negative) 06/17/19 12:45 Urine Urobilinogen < 2.0 mg/dL (<2.0) 06/17/19 12:45 Ur Leukocyte Esterase Neg (Negative) 06/17/19 12:45 Urine WBC (Auto) 2.0 /HPF (0.0-6.0) 06/17/19 12:45 Urine RBC (Auto) 2.0 /HPF (0.0-6.0) 06/17/19 12:45 U Epithel Cells (Auto) < 1.0 /HPF (0-13.0) 06/17/19 12:45 Urine Bacteria (Auto) 1+ /HPF (Negative) 05/20/19 12:00 Uric Acid Crystals 3+ 05/03/19 10:55 Urine Mucus Few /HPF 06/17/19 12:45 Urine Yeast (Budding) 3+ /HPF 05/20/19 12:00 Urine Creatinine 292.8 mg/dL (0.1-20.0) H 05/07/19 22:40 Urine Sodium 11 mmol/L 05/07/19 22:40 Urine Total Protein 269 mg/dL (5-11.8) H 05/07/19 22:40 Vancomycin Trough 20.5 ug/mL (5.0-20.0) H 05/15/19 09:00 Random Vancomycin 11.5 ug/mL (0-40.0) 05/27/19 06:00 AMNA Screen Negative (Negative) 05/07/19 13:45 Heparin-induced Plt Ab Negative (Negative) 06/17/19 12:45 UF Heparin High Dose 13 % Release 06/17/19 12:45 YUNG UFH Low Dose 0.1 8 % Release 06/17/19 12:45 YUNG UFH Low Dose 0.5 7 % Release 06/17/19 12:45 Hepatitis A IgM Ab Non-reactive (NonReactive) 05/07/19 13:45 Hep Bs Antigen Non-reactive (Negative) 05/07/19 13:45 Hep B Core IgM Ab Non-reactive (NonReactive) 05/07/19 13:45 Hepatitis C Antibody Non-reactive (NonReactive) 05/07/19 13:45 Influenza A (Rapid) Negative (Negative) 06/17/19 11:35 Influenza B (Rapid) Negative (Negative) 06/17/19 11:35 Active Medications - Current Medications Current Medications: Generic Name Dose Route Start Last Admin Trade Name Freq PRN Reason Stop Dose Admin Acetaminophen 650 mg 07/02/19 23:56 07/13/19 05:18 Tylenol PO 650 mg Q4H PRN Administration Pain, Mild (1-3) Amlodipine Besylate 10 mg 06/25/19 11:00 07/15/19 09:07 Amlodipine PO 10 mg DAILY VICKEY Administration Lipase/Protease/Amylase 1 each 07/15/19 12:[address] 10,500 Unit FEEDTUBE PRN PRN For Clogged Feeding Tube Apixaban 2.5 mg 06/23/19 22:00 07/15/19 09:06 Eliquis PO 2.5 mg Q12HR VICKEY Administration Protocol Dextrose 50 gm 05/01/19 20:24 D50w (25gm) Vial IV Q30MIN PRN Hypoglycemia Protocol Famotidine 20 mg 06/17/19 10:00 07/15/19 09:07 Pepcid PO 20 mg BID VICKEY Administration Ferrous Sulfate 308 mg 06/18/19 12:00 07/15/19 09:06 Ferrous Sulfate PO 308 mg QDAY VICKEY Administration Hydrochlorothiazide 25 mg 06/26/19 11:00 07/15/19 09:07 Hctz PO 25 mg QDAY VICKEY Administration Hydrophilic Ointment 1 applic 06/16/19 17:34 Vaseline Lip Therapy TP Q2HR PRN Dry Lips Insulin Human Lispro 0 unit 06/01/19 14:00 07/15/19 11:52 Humalog SUB-Q Not Given Q6HR [facility] Protocol Labetalol HCl 200 mg 06/28/19 10:00 07/15/19 13:02 Labetalol PO 200 mg Q8HR VICKEY Administration Multi-Ingred Cream/Lotion/Oil/Oint 1 applic 06/16/19 18:00 Artificial Tears Ophth Oint OU Q4HR PRN Dry Eye(s) Multivitamins 5 ml 06/29/19 12:00 07/15/19 09:06 Centrum Liq PO 5 ml QDAY VICKEY Administration Potassium Chloride 40 meq 06/19/19 10:00 07/15/19 09:06 Potassium Chloride FEEDTUBE 40 meq QDAY VICKEY Administration Scopolamine 1 each 06/27/19 09:00 07/15/19 09:06 Transderm-Scop TD 1 each Q3D VICKEY Administration Simple Syrup 15 ml 07/15/19 12:26 Simple Syrup FEEDTUBE PRN PRN Hypoglycemia Simple Syrup 30 ml 07/15/19 12:26 Simple Syrup FEEDTUBE PRN PRN Hypoglycemia Sodium Bicarbonate 325 mg 07/15/19 12:26 Sodium Bicarbonate FEEDTUBE PRN PRN For Clogged Feeding Tube Nutrition/Malnutrition Assess - Dietary Evaluation Nutrition/Malnutrition Findings: Nutrition Notes Start: 05/04/19 12:54 Freq: Status: Active Protocol: Document 07/15/19 12:23 CT (Rec: 07/15/19 12:26 CT [email or web address]) Co-Sign 07/15/19 12:23 LM Nutrition Notes Initial or Follow up Reassessment Current Diagnosis Acute Kidney Injury,Sepsis, Respiratory Failure Other Pertinent Diagnosis HD Current Diet Osmolite 1.5 at 60 ml/hr Labs/Tests Na 138 POC Glu 123 Pertinent Medications KCl Height 6 ft 4 in Weight 189.8 kg [place] Body Weight (kg) 91.81 BMI 50.9 Weight Status Morbidly Obese Subjective/Other Information Osmolite running at 60 ml/hr at time of visit. Pt tolerating TF. Percent of energy/protein needs met: 100%/100% Burn Absent Trauma Absent GI Symptoms None Current % PO Negligible Minimum of two criteria No Fluid Accumulation Moderate to Severe (severe) #1 Nutrition Diagnosis Inadequate oral intake Diagnosis Progress(for reassessment Continues documentation) Is patient on ventilator? Yes Is Patient Ambulatory and/or Out of Bed No REE-(Sanders-St. Jeor-confined to bed) 3534.288 Kcal/Kg value to use for calculation 11 Approximate Energy Requirements Using 8 kcal/Kg Calculation Used for Recommendations Kcal/kg Additional Notes PRO needs: 73-91g (0.8-1 g/kg IBW 91kg CARLA resolved) Fluid needs: 1 ml/kcal Nutrition Intervention Change Diet Order: Continue TF Nutrition Support: Osmolite at 60 ml/hr Flush 200 ml q4h Kcal 2,160 Protein (gm) 90 Fluid (mL) 1,097 Goal #1 TF tolerance Goal #2 Meet at least 80% of PRO/kcal needs via TF Anticipated Discharge Needs: Unable to determine at this time Follow-Up By: 07/21/19 Additional Comments Follow up for TF tolerance
[2019-07-16] MEDS: INSULIN LISPRO 100 UNIT/ML SUB-Q SCH ×4 (00:55→18:52)
--- NOTE | 2019-07-16 09:54 | Progress Note ---
Assessment and Plan Assessment and plan: /Febrile illness - spiking low grade temp intermittently, patient with fever again today. - Internal jugular tunneled hemodialysis catheter removed - negative blood Cx and UA - ID following, monitor off abx Fever again since 07/09 Repeat blood cultures today /Acute respiratory failure; vent dependent/status post trach and PEG Off ventilatory support, on T-piece, cont trach care, scheduled nebulizers Pulmonary critical following /Obesity hypoventilation syndrome Status post tracheostomy, titrate O2 sats to more than 90% /Status post cardiac arrest mild anoxic brain injury patient's mentation is improved - able to follow commend EEG was negative for seizures and neurology evaluated /Severe malnutrition Dysphasia; dw with his mom, she is agreeable to PEG tube, GS consulted Dietitian input appreciated, continue tube feeds /Anemia of chronic disease : Closely monitor H&H and transfuse as needed. 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 Now Patient is on Eliquis /-Acute kidney injury due to ATN : Requiring dialysis Resolved, nephrology following. /Hypernatremia/Hypokalemia/ hypomagnesemia: Resolved /Morbid obesity; will need weight loss program upon discharge /DVT prophylaxis; scd /Eliquis Plan of care discussed with the patient and his nurse Physical therapy/occupational therapy when patient is stable Disposition ; home with home health versus placement when patient is stable. Social and insurance issues. 07/16-patient with no fever as of yet since midnight 07/15. Cultures remain negative x72 hours. Patient remains vent dependent. History Interval history: No new issues overnight. Hospitalist Physical - Constitutional Vitals: Temp Pulse Resp BP Pulse Ox 99.8 F H 100 H 20 140/70 99 07/16/19 03:21 07/16/19 08:00 07/16/19 08:00 07/16/19 08:00 07/16/19 08:00 General appearance: Present: no acute distress, obese, other (tracheostomy /T- piece) - EENT Eyes: Present: PERRL, EOM intact ENT: hearing intact, clear oral mucosa, dentition normal - Neck Neck: Present: supple, normal ROM - Respiratory Respiratory effort: normal Respiratory: bilateral: CTA - Cardiovascular Rhythm: regular Heart Sounds: Present: S1 & S2. Absent: gallop, rub - Extremities Extremities: no ischemia, No edema, Full ROM - Abdominal General gastrointestinal: soft, non-tender, non-distended, normal bowel sounds - Integumentary Integumentary: Present: clear, warm, dry - Neurologic Neurologic: CNII-XII intact, moves all extremities Results - Labs CBC & Chem 7: 07/13/19 03:55 07/13/19 03:55 Labs: Laboratory Last Values WBC 11.4 K/mm3 (4.5-11.0) H 07/13/19 03:55 RBC 3.18 M/mm3 (3.65-5.03) L 07/13/19 03:55 Hgb 8.8 gm/dl (11.8-15.2) L 07/13/19 03:55 Hct 27.4 % (35.5-45.6) L 07/13/19 03:55 MCV 86 fl (84-94) 07/13/19 03:55 MCH 28 pg (28-32) 07/13/19 03:55 MCHC 32 % (32-34) 07/13/19 03:55 RDW 19.1 % (13.2-15.2) H 07/13/19 03:55 Plt Count 440 K/mm3 (140-440) 07/13/19 03:55 Lymph % (Auto) 8.3 % (13.4-35.0) L 07/01/19 07:58 Levy % (Auto) 10.0 % (0.0-7.3) H 07/01/19 07:58 Eos % (Auto) 1.5 % (0.0-4.3) 07/01/19 07:58 Baso % (Auto) 0.8 % (0.0-1.8) 07/01/19 07:58 Lymph # 0.9 K/mm3 (1.2-5.4) L 07/01/19 07:58 Levy # 1.2 K/mm3 (0.0-0.8) H 07/01/19 07:58 Eos # 0.2 K/mm3 (0.0-0.4) 07/01/19 07:58 Baso # 0.1 K/mm3 (0.0-0.1) 07/01/19 07:58 Add Manual Diff Complete 07/08/19 04:00 Total Counted 100 07/08/19 04:00 Seg Neutrophils % 79.4 % (40.0-70.0) H 07/01/19 07:58 Seg Neuts % (Manual) 76.0 % (40.0-70.0) H 07/08/19 04:00 Band Neutrophils % 0 % 07/08/19 04:00 Lymphocytes % (Manual) 16.0 % (13.4-35.0) 07/08/19 04:00 Reactive Lymphs % (Man) 0 % 07/08/19 04:00 Monocytes % (Manual) 6.0 % (0.0-7.3) 07/08/19 04:00 Eosinophils % (Manual) 2.0 % (0.0-4.3) 07/08/19 04:00 Basophils % (Manual) 0 % (0.0-1.8) 07/08/19 04:00 Metamyelocytes % 0 % 07/08/19 04:00 Myelocytes % 0 % 07/08/19 04:00 Promyelocytes % 0 % 07/08/19 04:00 Blast Cells % 0 % 07/08/19 04:00 Nucleated RBC % Not Reportable 07/08/19 04:00 Seg Neutrophils # 9.1 K/mm3 (1.8-7.7) H 07/01/19 07:58 Seg Neutrophils # Man 8.4 K/mm3 (1.8-7.7) H 07/08/19 04:00 Band Neutrophils # 0.0 K/mm3 07/08/19 04:00 Lymphocytes # (Manual) 1.8 K/mm3 (1.2-5.4) 07/08/19 04:00 Abs React Lymphs (Man) 0.0 K/mm3 07/08/19 04:00 Monocytes # (Manual) 0.7 K/mm3 (0.0-0.8) 07/08/19 04:00 Eosinophils # (Manual) 0.2 K/mm3 (0.0-0.4) 07/08/19 04:00 Basophils # (Manual) 0.0 K/mm3 (0.0-0.1) 07/08/19 04:00 Metamyelocytes # 0.0 K/mm3 07/08/19 04:00 Myelocytes # 0.0 K/mm3 07/08/19 04:00 Promyelocytes # 0.0 K/mm3 07/08/19 04:00 Blast Cells # 0.0 K/mm3 07/08/19 04:00 WBC Morphology Not Reportable 07/08/19 04:00 Hypersegmented Neuts Not Reportable 07/08/19 04:00 Hyposegmented Neuts Not Reportable 07/08/19 04:00 Hypogranular Neuts Not Reportable 07/08/19 04:00 Smudge Cells Not Reportable 07/08/19 04:00 Toxic Granulation Not Reportable 07/08/19 04:00 Toxic Vacuolation Not Reportable 07/08/19 04:00 Dohle Bodies Not Reportable 07/08/19 04:00 Pelger-Huet Anomaly Not Reportable 07/08/19 04:00 Renea Rods Not Reportable 07/08/19 04:00 Platelet Estimate Consistent w auto 07/08/19 04:00 Clumped Platelets Not Reportable 07/08/19 04:00 Plt Clumps, EDTA Not Reportable 07/08/19 04:00 Large Platelets Not Reportable 07/08/19 04:00 Giant Platelets Not Reportable 07/08/19 04:00 Platelet Satelliting Not Reportable 07/08/19 04:00 Plt Morphology Comment Not Reportable 07/08/19 04:00 RBC Morphology Not Reportable 07/08/19 04:00 Dimorphic RBCs Not Reportable 07/08/19 04:00 Polychromasia Not Reportable 07/08/19 04:00 Hypochromasia Not Reportable 07/08/19 04:00 Poikilocytosis Not Reportable 07/08/19 04:00 Anisocytosis 1+ 07/08/19 04:00 Microcytosis Not Reportable 07/08/19 04:00 Macrocytosis Not Reportable 07/08/19 04:00 Spherocytes Not Reportable 07/08/19 04:00 Pappenheimer Bodies Not Reportable 07/08/19 04:00 Sickle Cells Not Reportable 07/08/19 04:00 Target Cells Not Reportable 07/08/19 04:00 Tear Drop Cells Not Reportable 07/08/19 04:00 Ovalocytes Not Reportable 07/08/19 04:00 Stomatocytes 3+ 06/23/19 05:24 Helmet Cells Not Reportable 07/08/19 04:00 [place] Bodies Not Reportable 07/08/19 04:00 [place] Rings Not Reportable 07/08/19 04:00 [place] Cells Not Reportable 07/08/19 04:00 Bite Cells Not Reportable 07/08/19 04:00 Crenated Cell Not Reportable 07/08/19 04:00 Elliptocytes Not Reportable 07/08/19 04:00 Acanthocytes (Spur) Not Reportable 07/08/19 04:00 Rouleaux Not Reportable 07/08/19 04:00 Hemoglobin C Crystals Not Reportable 07/08/19 04:00 Schistocytes Not Reportable 07/08/19 04:00 Malaria parasites Not Reportable 07/08/19 04:00 Syed Bodies Not Reportable 07/08/19 04:00 Hem Pathologist Commnt No 07/08/19 04:00 PT 15.4 Sec. (12.2-14.9) H 05/01/19 Unknown INR 1.23 (0.87-1.13) H 05/01/19 Unknown APTT 22.7 Sec. (24.2-36.6) L 05/01/19 Unknown Fibrinogen 194 mg/dl (211-480) L 06/17/19 12:45 Heparin Anti-Xa, Unfract Negative (Negative) 06/17/19 12:45 POC ABG pH 7.462 (7.35-7.45) H 06/05/19 03:52 ABG pH 7.469 pH Units (7.350-7.450) H 06/23/19 02:00 POC ABG pCO2 39.8 (35-45) 06/05/19 03:52 ABG pCO2 39.4 mm Hg 06/23/19 02:00 POC ABG pO2 86 (80-105) 06/05/19 03:52 ABG pO2 58.7 mm Hg (80.0-90.0) L 06/23/19 02:00 POC ABG HCO3 28.4 (22-26 mml/L) 06/05/19 03:52 ABG HCO3 28.0 mmol/L (20.0-26.0) H 06/23/19 02:00 POC ABG Total CO2 30 (23-27mmol/L) 06/05/19 03:52 POC ABG O2 Sat 97 06/05/19 03:52 ABG O2 Saturation 94.6 % (95.0-99.0) L 06/23/19 02:00 ABG O2 Content 9.2 (0.0-44) 06/23/19 02:00 POC ABG Base Excess 5 ((-2) - (+3)mmol/L) 06/05/19 03:52 ABG Base Excess 4.0 mmol/L (-2.0-3.0) H 06/23/19 02:00 ABG Hemoglobin 7.1 gm/dl (14.0-18.0) L 06/23/19 02:00 ABG Carboxyhemoglobin 2.0 % (0.0-5.0) 06/23/19 02:00 ABG Methemoglobin 0.5 % (0.0-1.5) 06/23/19 02:00 Oxyhemoglobin 92.2 % (95.0-99.0) L 06/23/19 02:00 FiO2 30 % 06/23/19 02:00 Sodium 138 mmol/L (137-145) 07/13/19 03:55 Potassium 4.0 mmol/L (3.6-5.0) 07/13/19 03:55 Chloride 97.4 mmol/L (98-107) L 07/13/19 03:55 Carbon Dioxide 23 mmol/L (22-30) 07/13/19 03:55 Anion Gap 22 mmol/L 07/13/19 03:55 BUN 9 mg/dL (9-20) 07/13/19 03:55 Creatinine 0.5 mg/dL (0.8-1.5) L 07/13/19 03:55 Estimated GFR > 60 ml/min 07/13/19 03:55 BUN/Creatinine Ratio 18 % 07/13/19 03:55 Glucose 121 mg/dL (75-100) H 07/13/19 03:55 POC Glucose 94 (70-105) 07/16/19 05:37 Osmolality 327 Mosm/kg 05/07/19 13:45 Uric Acid 18.0 mg/dL (3.5-7.6) H 05/07/19 13:45 Calcium 9.6 mg/dL (8.4-10.2) 07/13/19 03:55 Phosphorus 3.70 mg/dL (2.5-4.5) 06/10/19 05:45 Magnesium 1.60 mg/dL (1.7-2.3) L 06/26/19 04:43 Iron 45 ug/dL (49-181) L 06/20/19 09:12 TIBC 110 mcg/dL (250-450) L 06/20/19 09:12 Ferritin 315.2 ng/mL (13.0-400.0) 06/20/19 09:12 Total Bilirubin 0.50 mg/dL (0.1-1.2) 06/08/19 04:20 AST 23 units/L (5-40) 06/08/19 04:20 ALT 66 units/L (7-56) H 06/08/19 04:20 Alkaline Phosphatase 59 units/L (35-129) 06/08/19 04:20 Total Creatine Kinase 131 units/L (55-170) 05/02/19 04:41 CK-MB (CK-2) 5.2 ng/mL (0.0-4.0) H 05/02/19 04:41 CK-MB (CK-2) Rel Index 3.9 (0-4) 05/02/19 04:41 Troponin T 0.067 ng/mL (0.00-0.029) H D 05/02/19 04:41 NT-Pro-B Natriuret Pep 6831 pg/mL (0-450) H 05/01/19 Unknown Total Protein 5.5 g/dL (6.3-8.2) L 06/08/19 04:20 Albumin 2.9 g/dL (3.9-5) L 06/08/19 04:20 Albumin/Globulin Ratio 1.1 % 06/08/19 04:20 Triglycerides 210 mg/dL (2-149) H 06/19/19 04:30 Cholesterol 173 mg/dL (50-199) 05/02/19 00:06 LDL Cholesterol Direct 126 mg/dL (50-130) 05/02/19 00:06 HDL Cholesterol 18 mg/dL (40-59) L 05/02/19 00:06 Cholesterol/HDL Ratio 9.61 % 05/02/19 00:06 Serotonin Release Assay See scanned results 06/17/19 12:45 Vitamin B12 353.0 pg/mL (211-911) 06/20/19 09:12 Folate 7.01 ng/mL (7.3-26.0) L 06/20/19 09:12 Procalcitonin 0.05 ng/mL (<0.15) 06/17/19 12:45 Urine Color Yellow (Yellow) 06/17/19 12:45 Urine Turbidity Slightly-cloudy (Clear) 06/17/19 12:45 Urine pH 5.0 (5.0-7.0) 06/17/19 12:45 Ur Specific [place] 1.013 (1.003-1.030) 06/17/19 12:45 Urine Protein <15 mg/dl mg/dL (Negative) 06/17/19 12:45 Urine Glucose (UA) Neg mg/dL (Negative) 06/17/19 12:45 Urine Ketones Neg mg/dL (Negative) 06/17/19 12:45 Urine Blood Sm (Negative) 06/17/19 12:45 Urine Nitrite Neg (Negative) 06/17/19 12:45 Urine Bilirubin Neg (Negative) 06/17/19 12:45 Urine Urobilinogen < 2.0 mg/dL (<2.0) 06/17/19 12:45 Ur Leukocyte Esterase Neg (Negative) 06/17/19 12:45 Urine WBC (Auto) 2.0 /HPF (0.0-6.0) 06/17/19 12:45 Urine RBC (Auto) 2.0 /HPF (0.0-6.0) 06/17/19 12:45 U Epithel Cells (Auto) < 1.0 /HPF (0-13.0) 06/17/19 12:45 Urine Bacteria (Auto) 1+ /HPF (Negative) 05/20/19 12:00 Uric Acid Crystals 3+ 05/03/19 10:55 Urine Mucus Few /HPF 06/17/19 12:45 Urine Yeast (Budding) 3+ /HPF 05/20/19 12:00 Urine Creatinine 292.8 mg/dL (0.1-20.0) H 05/07/19 22:40 Urine Sodium 11 mmol/L 05/07/19 22:40 Urine Total Protein 269 mg/dL (5-11.8) H 05/07/19 22:40 Vancomycin Trough 20.5 ug/mL (5.0-20.0) H 05/15/19 09:00 Random Vancomycin 11.5 ug/mL (0-40.0) 05/27/19 06:00 AMNA Screen Negative (Negative) 05/07/19 13:45 Heparin-induced Plt Ab Negative (Negative) 06/17/19 12:45 UF Heparin High Dose 13 % Release 06/17/19 12:45 YUNG UFH Low Dose 0.1 8 % Release 06/17/19 12:45 YUNG UFH Low Dose 0.5 7 % Release 06/17/19 12:45 Hepatitis A IgM Ab Non-reactive (NonReactive) 05/07/19 13:45 Hep Bs Antigen Non-reactive (Negative) 05/07/19 13:45 Hep B Core IgM Ab Non-reactive (NonReactive) 05/07/19 13:45 Hepatitis C Antibody Non-reactive (NonReactive) 05/07/19 13:45 Influenza A (Rapid) Negative (Negative) 06/17/19 11:35 Influenza B (Rapid) Negative (Negative) 06/17/19 11:35 Active Medications - Current Medications Current Medications: Generic Name Dose Route Start Last Admin Trade Name Freq PRN Reason Stop Dose Admin Acetaminophen 650 mg 07/02/19 23:56 07/13/19 05:18 Tylenol PO 650 mg Q4H PRN Administration Pain, Mild (1-3) Amlodipine Besylate 10 mg 06/25/19 11:00 07/15/19 09:07 Amlodipine PO 10 mg DAILY VICKEY Administration Lipase/Protease/Amylase 1 each 07/15/19 12:26 Pancremannie Fletcher 10,500 Unit FEEDTUBE PRN PRN For Clogged Feeding Tube Apixaban 2.5 mg 06/23/19 22:00 07/15/19 21:57 Eliquis PO 2.5 mg Q12HR VICKEY Administration Protocol Dextrose 50 gm 05/01/19 20:24 D50w (25gm) Vial IV Q30MIN PRN Hypoglycemia Protocol Famotidine 20 mg 06/17/19 10:00 07/15/19 21:58 Pepcid PO 20 mg BID VICKEY Administration Ferrous Sulfate 308 mg 06/18/19 12:00 07/15/19 09:06 Ferrous Sulfate PO 308 mg QDAY VICKEY Administration Hydrochlorothiazide 25 mg 06/26/19 11:00 07/15/19 09:07 Hctz PO 25 mg QDAY VICKEY Administration Hydrophilic Ointment 1 applic 06/16/19 17:34 Vaseline Lip Therapy TP Q2HR PRN Dry Lips Insulin Human Lispro 0 unit 06/01/19 14:00 07/16/19 06:00 Humalog SUB-Q Not Given Q6HR VICKEY Protocol Labetalol HCl 200 mg 06/28/19 10:00 07/16/19 05:57 Labetalol PO 200 mg Q8HR VICKEY Administration Multi-Ingred Cream/Lotion/Oil/Oint 1 applic 06/16/19 18:00 Artificial Tears Ophth Oint OU Q4HR PRN Dry Eye(s) Multivitamins 5 ml 06/29/19 12:00 07/15/19 09:06 Centrum Liq PO 5 ml QDAY VICKEY Administration Potassium Chloride 40 meq 06/19/19 10:00 07/15/19 09:06 Potassium Chloride FEEDTUBE 40 meq QDAY VICKEY Administration Scopolamine 1 each 06/27/19 09:00 07/15/19 09:06 Transderm-Scop TD 1 each Q3D VICKEY Administration Simple Syrup 15 ml 07/15/19 12:26 Simple Syrup FEEDTUBE PRN PRN Hypoglycemia Simple Syrup 30 ml 07/15/19 12:26 Simple Syrup FEEDTUBE PRN PRN Hypoglycemia Sodium Bicarbonate 325 mg 07/15/19 12:26 Sodium Bicarbonate FEEDTUBE PRN PRN For Clogged Feeding Tube Nutrition/Malnutrition Assess - Dietary Evaluation Nutrition/Malnutrition Findings: Nutrition Notes Start: 05/04/19 12:54 Freq: Status: Active Protocol: Document 07/15/19 12:23 CT (Rec: 07/15/19 12:26 CT [email or web address]) Co-Sign 07/15/19 12:23 LM Nutrition Notes Initial or Follow up Reassessment Current Diagnosis Acute Kidney Injury,Sepsis, Respiratory Failure Other Pertinent Diagnosis HD Current Diet Osmolite 1.5 at 60 ml/hr Labs/Tests Na 138 POC Glu 123 Pertinent Medications KCl Height 6 ft 4 in Weight 189.8 kg [place] Body Weight (kg) 91.81 BMI 50.9 Weight Status Morbidly Obese Subjective/Other Information Osmolite running at 60 ml/hr at time of visit. Pt tolerating TF. Percent of energy/protein needs met: 100%/100% Burn Absent Trauma Absent GI Symptoms None Current % PO Negligible Minimum of two criteria No Fluid Accumulation Moderate to Severe (severe) #1 Nutrition Diagnosis Inadequate oral intake Diagnosis Progress(for reassessment Continues documentation) Is patient on ventilator? Yes Is Patient Ambulatory and/or Out of Bed No REE-([place]-confined to bed) 3534.288 Kcal/Kg value to use for calculation 11 Approximate Energy Requirements Using 8 kcal/Kg Calculation Used for Recommendations Kcal/kg Additional Notes PRO needs: 73-91g (0.8-1 g/kg IBW 91kg CARLA resolved) Fluid needs: 1 ml/kcal Nutrition Intervention Change Diet Order: Continue TF Nutrition Support: Osmolite at 60 ml/hr Flush 200 ml q4h Kcal 2,160 Protein (gm) 90 Fluid (mL) 1,097 Goal #1 TF tolerance Goal #2 Meet at least 80% of PRO/kcal needs via TF Anticipated Discharge Needs: Unable to determine at this time Follow-Up By: 07/21/19 Additional Comments Follow up for TF tolerance
[2019-07-16] MEDS: POTASSIUM CHLORIDE 20 MEQ PACKET FEEDTUBE SCH (10:00)
[2019-07-16] MEDS: MULTIVITAMINS 5 ML ORAL LIQUID PO SCH (10:05)
[2019-07-16] MEDS: amLODIPine 10 MG TAB PO SCH (10:07)
[2019-07-16] MEDS: FERROUS SULFATE 308 MG (62mg Elemental Iron) / 7 ML ELIXIR PO SCH (10:10)
[2019-07-16] MEDS: APIXABAN 2.5 MG TAB PO SCH ×2 (10:10→22:01)
[2019-07-16] MEDS: FAMOTIDINE 20 MG TAB PO SCH ×2 (10:10→22:00)
[2019-07-16] MEDS: hydroCHLOROthiazide 25 MG TAB PO SCH (10:10)
--- NOTE | 2019-07-16 18:28 | Event Note ---
renal function normalized, will s/o please call if needed
[2019-07-16] MEDS: ACETAMINOPHEN 325 MG TAB PO PRN (22:01)
[2019-07-17] MEDS: INSULIN LISPRO 100 UNIT/ML SUB-Q SCH ×3 (05:06→18:37)
[2019-07-17] MEDS: MULTIVITAMINS 5 ML ORAL LIQUID PO SCH (09:56)
[2019-07-17] MEDS: FERROUS SULFATE 308 MG (62mg Elemental Iron) / 7 ML ELIXIR PO SCH (09:56)
[2019-07-17] MEDS: APIXABAN 2.5 MG TAB PO SCH ×2 (09:57→21:06)
[2019-07-17] MEDS: amLODIPine 10 MG TAB PO SCH (09:57)
[2019-07-17] MEDS: POTASSIUM CHLORIDE 20 MEQ PACKET FEEDTUBE SCH (09:57)
[2019-07-17] MEDS: FAMOTIDINE 20 MG TAB PO SCH ×2 (09:58→21:05)
[2019-07-17] MEDS: hydroCHLOROthiazide 25 MG TAB PO SCH (09:58)
--- NOTE | 2019-07-17 11:36 | Progress Note ---
Assessment and Plan Assessment and plan: /Febrile illness - spiking low grade temp intermittently, patient with fever again today. - Internal jugular tunneled hemodialysis catheter removed - negative blood Cx and UA - ID following, monitor off abx Fever again since 07/09 Repeat blood cultures today /Acute respiratory failure; vent dependent/status post trach and PEG Off ventilatory support, on T-piece, cont trach care, scheduled nebulizers Pulmonary critical following /Obesity hypoventilation syndrome Status post tracheostomy, titrate O2 sats to more than 90% /Status post cardiac arrest mild anoxic brain injury patient's mentation is improved - able to follow commend EEG was negative for seizures and neurology evaluated /Severe malnutrition Dysphasia; dw with his mom, she is agreeable to PEG tube, GS consulted Dietitian input appreciated, continue tube feeds /Anemia of chronic disease : Closely monitor H&H and transfuse as needed. 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 Now Patient is on Eliquis /-Acute kidney injury due to ATN : Requiring dialysis Resolved, nephrology following. /Hypernatremia/Hypokalemia/ hypomagnesemia: Resolved /Morbid obesity; will need weight loss program upon discharge /DVT prophylaxis; scd /Eliquis Plan of care discussed with the patient and his nurse Physical therapy/occupational therapy when patient is stable Disposition ; home with home health versus placement when patient is stable. Social and insurance issues. 07/16-patient with no fever as of yet since midnight 07/15. Cultures remain negative x72 hours. Patient remains vent dependent. 07/17consider to transfer out of the ICU to the floor. Continue tube feeding with aspiration precautions. Continue frequent suctioning, trach care, secretion control and airway management. Continue mobility protocols for pressure ulcer prophylaxis. History Interval history: No new issues overnight. Hospitalist Physical - Constitutional Vitals: Temp Pulse Resp BP Pulse Ox 98.9 F 102 H 44 H 120/73 100 07/17/19 08:00 07/17/19 10:01 07/17/19 10:01 07/17/19 10:01 07/17/19 10:01 General appearance: Present: no acute distress, obese, other (tracheostomy /T- piece) - EENT Eyes: Present: PERRL, EOM intact ENT: hearing intact, clear oral mucosa, dentition normal - Neck Neck: Present: supple, normal ROM - Respiratory Respiratory effort: normal Respiratory: bilateral: CTA - Cardiovascular Rhythm: regular Heart Sounds: Present: S1 & S2. Absent: gallop, rub - Extremities Extremities: no ischemia, No edema, Full ROM - Abdominal General gastrointestinal: soft, non-tender, non-distended, normal bowel sounds - Integumentary Integumentary: Present: clear, warm, dry - Neurologic Neurologic: CNII-XII intact, moves all extremities Results - Labs CBC & Chem 7: 07/13/19 03:55 07/13/19 03:55 Labs: Laboratory Last Values WBC 11.4 K/mm3 (4.5-11.0) H 07/13/19 03:55 RBC 3.18 M/mm3 (3.65-5.03) L 07/13/19 03:55 Hgb 8.8 gm/dl (11.8-15.2) L 07/13/19 03:55 Hct 27.4 % (35.5-45.6) L 07/13/19 03:55 MCV 86 fl (84-94) 07/13/19 03:55 MCH 28 pg (28-32) 07/13/19 03:55 MCHC 32 % (32-34) 07/13/19 03:55 RDW 19.1 % (13.2-15.2) H 07/13/19 03:55 Plt Count 440 K/mm3 (140-440) 07/13/19 03:55 Lymph % (Auto) 8.3 % (13.4-35.0) L 07/01/19 07:58 [place] % (Auto) 10.0 % (0.0-7.3) H 07/01/19 07:58 Eos % (Auto) 1.5 % (0.0-4.3) 07/01/19 07:58 Baso % (Auto) 0.8 % (0.0-1.8) 07/01/19 07:58 Lymph # 0.9 K/mm3 (1.2-5.4) L 07/01/19 07:58 [place] # 1.2 K/mm3 (0.0-0.8) H 07/01/19 07:58 Eos # 0.2 K/mm3 (0.0-0.4) 07/01/19 07:58 Baso # 0.1 K/mm3 (0.0-0.1) 07/01/19 07:58 Add Manual Diff Complete 07/08/19 04:00 Total Counted 100 07/08/19 04:00 Seg Neutrophils % 79.4 % (40.0-70.0) H 07/01/19 07:58 Seg Neuts % (Manual) 76.0 % (40.0-70.0) H 07/08/19 04:00 Band Neutrophils % 0 % 07/08/19 04:00 Lymphocytes % (Manual) 16.0 % (13.4-35.0) 07/08/19 04:00 Reactive Lymphs % (Man) 0 % 07/08/19 04:00 Monocytes % (Manual) 6.0 % (0.0-7.3) 07/08/19 04:00 Eosinophils % (Manual) 2.0 % (0.0-4.3) 07/08/19 04:00 Basophils % (Manual) 0 % (0.0-1.8) 07/08/19 04:00 Metamyelocytes % 0 % 07/08/19 04:00 Myelocytes % 0 % 07/08/19 04:00 Promyelocytes % 0 % 07/08/19 04:00 Blast Cells % 0 % 07/08/19 04:00 Nucleated RBC % Not Reportable 07/08/19 04:00 Seg Neutrophils # 9.1 K/mm3 (1.8-7.7) H 07/01/19 07:58 Seg Neutrophils # Man 8.4 K/mm3 (1.8-7.7) H 07/08/19 04:00 Band Neutrophils # 0.0 K/mm3 07/08/19 04:00 Lymphocytes # (Manual) 1.8 K/mm3 (1.2-5.4) 07/08/19 04:00 Abs React Lymphs (Man) 0.0 K/mm3 07/08/19 04:00 Monocytes # (Manual) 0.7 K/mm3 (0.0-0.8) 07/08/19 04:00 Eosinophils # (Manual) 0.2 K/mm3 (0.0-0.4) 07/08/19 04:00 Basophils # (Manual) 0.0 K/mm3 (0.0-0.1) 07/08/19 04:00 Metamyelocytes # 0.0 K/mm3 07/08/19 04:00 Myelocytes # 0.0 K/mm3 07/08/19 04:00 Promyelocytes # 0.0 K/mm3 07/08/19 04:00 Blast Cells # 0.0 K/mm3 07/08/19 04:00 WBC Morphology Not Reportable 07/08/19 04:00 Hypersegmented Neuts Not Reportable 07/08/19 04:00 Hyposegmented Neuts Not Reportable 07/08/19 04:00 Hypogranular Neuts Not Reportable 07/08/19 04:00 Smudge Cells Not Reportable 07/08/19 04:00 Toxic Granulation Not Reportable 07/08/19 04:00 Toxic Vacuolation Not Reportable 07/08/19 04:00 Dohle Bodies Not Reportable 07/08/19 04:00 Pelger-Huet Anomaly Not Reportable 07/08/19 04:00 Renea Rods Not Reportable 07/08/19 04:00 Platelet Estimate Consistent w auto 07/08/19 04:00 Clumped Platelets Not Reportable 07/08/19 04:00 Plt Clumps, EDTA Not Reportable 07/08/19 04:00 Large Platelets Not Reportable 07/08/19 04:00 Giant Platelets Not Reportable 07/08/19 04:00 Platelet Satelliting Not Reportable 07/08/19 04:00 Plt Morphology Comment Not Reportable 07/08/19 04:00 RBC Morphology Not Reportable 07/08/19 04:00 Dimorphic RBCs Not Reportable 07/08/19 04:00 Polychromasia Not Reportable 07/08/19 04:00 Hypochromasia Not Reportable 07/08/19 04:00 Poikilocytosis Not Reportable 07/08/19 04:00 Anisocytosis 1+ 07/08/19 04:00 Microcytosis Not Reportable 07/08/19 04:00 Macrocytosis Not Reportable 07/08/19 04:00 Spherocytes Not Reportable 07/08/19 04:00 Pappenheimer Bodies Not Reportable 07/08/19 04:00 Sickle Cells Not Reportable 07/08/19 04:00 Target Cells Not Reportable 07/08/19 04:00 Tear Drop Cells Not Reportable 07/08/19 04:00 Ovalocytes Not Reportable 07/08/19 04:00 Stomatocytes 3+ 06/23/19 05:24 Helmet Cells Not Reportable 07/08/19 04:00 [place] Bodies Not Reportable 07/08/19 04:00 [place] Rings Not Reportable 07/08/19 04:00 [place] Cells Not Reportable 07/08/19 04:00 Bite Cells Not Reportable 07/08/19 04:00 Crenated Cell Not Reportable 07/08/19 04:00 Elliptocytes Not Reportable 07/08/19 04:00 Acanthocytes (Spur) Not Reportable 07/08/19 04:00 Rouleaux Not Reportable 07/08/19 04:00 Hemoglobin C Crystals Not Reportable 07/08/19 04:00 Schistocytes Not Reportable 07/08/19 04:00 Malaria parasites Not Reportable 07/08/19 04:00 Syed Bodies Not Reportable 07/08/19 04:00 Hem Pathologist Commnt No 07/08/19 04:00 PT 15.4 Sec. (12.2-14.9) H 05/01/19 Unknown INR 1.23 (0.87-1.13) H 05/01/19 Unknown APTT 22.7 Sec. (24.2-36.6) L 05/01/19 Unknown Fibrinogen 194 mg/dl (211-480) L 06/17/19 12:45 Heparin Anti-Xa, Unfract Negative (Negative) 06/17/19 12:45 POC ABG pH 7.462 (7.35-7.45) H 06/05/19 03:52 ABG pH 7.469 pH Units (7.350-7.450) H 06/23/19 02:00 POC ABG pCO2 39.8 (35-45) 06/05/19 03:52 ABG pCO2 39.4 mm Hg 06/23/19 02:00 POC ABG pO2 86 (80-105) 06/05/19 03:52 ABG pO2 58.7 mm Hg (80.0-90.0) L 06/23/19 02:00 POC ABG HCO3 28.4 (22-26 mml/L) 06/05/19 03:52 ABG HCO3 28.0 mmol/L (20.0-26.0) H 06/23/19 02:00 POC ABG Total CO2 30 (23-27mmol/L) 06/05/19 03:52 POC ABG O2 Sat 97 06/05/19 03:52 ABG O2 Saturation 94.6 % (95.0-99.0) L 06/23/19 02:00 ABG O2 Content 9.2 (0.0-44) 06/23/19 02:00 POC ABG Base Excess 5 ((-2) - (+3)mmol/L) 06/05/19 03:52 ABG Base Excess 4.0 mmol/L (-2.0-3.0) H 06/23/19 02:00 ABG Hemoglobin 7.1 gm/dl (14.0-18.0) L 06/23/19 02:00 ABG Carboxyhemoglobin 2.0 % (0.0-5.0) 06/23/19 02:00 ABG Methemoglobin 0.5 % (0.0-1.5) 06/23/19 02:00 Oxyhemoglobin 92.2 % (95.0-99.0) L 06/23/19 02:00 FiO2 30 % 06/23/19 02:00 Sodium 138 mmol/L (137-145) 07/13/19 03:55 Potassium 4.0 mmol/L (3.6-5.0) 07/13/19 03:55 Chloride 97.4 mmol/L (98-107) L 07/13/19 03:55 Carbon Dioxide 23 mmol/L (22-30) 07/13/19 03:55 Anion Gap 22 mmol/L 07/13/19 03:55 BUN 9 mg/dL (9-20) 07/13/19 03:55 Creatinine 0.5 mg/dL (0.8-1.5) L 07/13/19 03:55 Estimated GFR > 60 ml/min 07/13/19 03:55 BUN/Creatinine Ratio 18 % 07/13/19 03:55 Glucose 121 mg/dL (75-100) H 07/13/19 03:55 POC Glucose 83 (70-105) 07/17/19 05:56 Osmolality 327 Mosm/kg 05/07/19 13:45 Uric Acid 18.0 mg/dL (3.5-7.6) H 05/07/19 13:45 Calcium 9.6 mg/dL (8.4-10.2) 07/13/19 03:55 Phosphorus 3.70 mg/dL (2.5-4.5) 06/10/19 05:45 Magnesium 1.60 mg/dL (1.7-2.3) L 06/26/19 04:43 Iron 45 ug/dL (49-181) L 06/20/19 09:12 TIBC 110 mcg/dL (250-450) L 06/20/19 09:12 Ferritin 315.2 ng/mL (13.0-400.0) 06/20/19 09:12 Total Bilirubin 0.50 mg/dL (0.1-1.2) 06/08/19 04:20 AST 23 units/L (5-40) 06/08/19 04:20 ALT 66 units/L (7-56) H 06/08/19 04:20 Alkaline Phosphatase 59 units/L (35-129) 06/08/19 04:20 Total Creatine Kinase 131 units/L (55-170) 05/02/19 04:41 CK-MB (CK-2) 5.2 ng/mL (0.0-4.0) H 05/02/19 04:41 CK-MB (CK-2) Rel Index 3.9 (0-4) 05/02/19 04:41 Troponin T 0.067 ng/mL (0.00-0.029) H D 05/02/19 04:41 NT-Pro-B Natriuret Pep 6831 pg/mL (0-450) H 05/01/19 Unknown Total Protein 5.5 g/dL (6.3-8.2) L 06/08/19 04:20 Albumin 2.9 g/dL (3.9-5) L 06/08/19 04:20 Albumin/Globulin Ratio 1.1 % 06/08/19 04:20 Triglycerides 210 mg/dL (2-149) H 06/19/19 04:30 Cholesterol 173 mg/dL (50-199) 05/02/19 00:06 LDL Cholesterol Direct 126 mg/dL (50-130) 05/02/19 00:06 HDL Cholesterol 18 mg/dL (40-59) L 05/02/19 00:06 Cholesterol/HDL Ratio 9.61 % 05/02/19 00:06 Serotonin Release Assay See scanned results 06/17/19 12:45 Vitamin B12 353.0 pg/mL (211-911) 06/20/19 09:12 Folate 7.01 ng/mL (7.3-26.0) L 06/20/19 09:12 Procalcitonin 0.05 ng/mL (<0.15) 06/17/19 12:45 Urine Color Yellow (Yellow) 06/17/19 12:45 Urine Turbidity Slightly-cloudy (Clear) 06/17/19 12:45 Urine pH 5.0 (5.0-7.0) 06/17/19 12:45 Ur Specific [place] 1.013 (1.003-1.030) 06/17/19 12:45 Urine Protein <15 mg/dl mg/dL (Negative) 06/17/19 12:45 Urine Glucose (UA) Neg mg/dL (Negative) 06/17/19 12:45 Urine Ketones Neg mg/dL (Negative) 06/17/19 12:45 Urine Blood Sm (Negative) 06/17/19 12:45 Urine Nitrite Neg (Negative) 06/17/19 12:45 Urine Bilirubin Neg (Negative) 06/17/19 12:45 Urine Urobilinogen < 2.0 mg/dL (<2.0) 06/17/19 12:45 Ur Leukocyte Esterase Neg (Negative) 06/17/19 12:45 Urine WBC (Auto) 2.0 /HPF (0.0-6.0) 06/17/19 12:45 Urine RBC (Auto) 2.0 /HPF (0.0-6.0) 06/17/19 12:45 U Epithel Cells (Auto) < 1.0 /HPF (0-13.0) 06/17/19 12:45 Urine Bacteria (Auto) 1+ /HPF (Negative) 05/20/19 12:00 Uric Acid Crystals 3+ 05/03/19 10:55 Urine Mucus Few /HPF 06/17/19 12:45 Urine Yeast (Budding) 3+ /HPF 05/20/19 12:00 Urine Creatinine 292.8 mg/dL (0.1-20.0) H 05/07/19 22:40 Urine Sodium 11 mmol/L 05/07/19 22:40 Urine Total Protein 269 mg/dL (5-11.8) H 05/07/19 22:40 Vancomycin Trough 20.5 ug/mL (5.0-20.0) H 05/15/19 09:00 Random Vancomycin 11.5 ug/mL (0-40.0) 05/27/19 06:00 AMNA Screen Negative (Negative) 05/07/19 13:45 Heparin-induced Plt Ab Negative (Negative) 06/17/19 12:45 UF Heparin High Dose 13 % Release 06/17/19 12:45 YUNG UFH Low Dose 0.1 8 % Release 06/17/19 12:45 YUNG UFH Low Dose 0.5 7 % Release 06/17/19 12:45 Hepatitis A IgM Ab Non-reactive (NonReactive) 05/07/19 13:45 Hep Bs Antigen Non-reactive (Negative) 05/07/19 13:45 Hep B Core IgM Ab Non-reactive (NonReactive) 05/07/19 13:45 Hepatitis C Antibody Non-reactive (NonReactive) 05/07/19 13:45 Influenza A (Rapid) Negative (Negative) 06/17/19 11:35 Influenza B (Rapid) Negative (Negative) 06/17/19 11:35 Active Medications - Current Medications Current Medications: Generic Name Dose Route Start Last Admin Trade Name Freq PRN Reason Stop Dose Admin Acetaminophen 650 mg 07/02/19 23:56 07/16/19 22:01 Tylenol PO 650 mg Q4H PRN Administration Pain, Mild (1-3) Amlodipine Besylate 10 mg 06/25/19 11:00 07/17/19 09:57 Amlodipine PO 10 mg DAILY VICKEY Administration Lipase/Protease/Amylase 1 each 07/15/19 12:[address] 10,500 Unit FEEDTUBE PRN PRN For Clogged Feeding Tube Apixaban 2.5 mg 06/23/19 22:00 07/17/19 09:57 Eliquis PO 2.5 mg Q12HR VICKEY Administration Protocol Dextrose 50 gm 05/01/19 20:24 D50w (25gm) Vial IV Q30MIN PRN Hypoglycemia Protocol Famotidine 20 mg 06/17/19 10:00 07/17/19 09:58 Pepcid PO 20 mg BID VICKEY Administration Ferrous Sulfate 308 mg 06/18/19 12:00 07/17/19 09:56 Ferrous Sulfate PO 308 mg QDAY VICKEY Administration Hydrochlorothiazide 25 mg 06/26/19 11:00 07/17/19 09:58 Hctz PO 25 mg QDAY VICKEY Administration Hydrophilic Ointment 1 applic 06/16/19 17:34 Vaseline Lip Therapy TP Q2HR PRN Dry Lips Insulin Human Lispro 0 unit 06/01/19 14:00 07/17/19 05:06 Humalog SUB-Q Not Given Q6HR [facility] Protocol Labetalol HCl 200 mg 06/28/19 10:00 07/17/19 05:05 Labetalol PO 200 mg Q8HR VICKEY Administration Multi-Ingred Cream/Lotion/Oil/Oint 1 applic 06/16/19 18:00 Artificial Tears Ophth Oint OU Q4HR PRN Dry Eye(s) Multivitamins 5 ml 06/29/19 12:00 07/17/19 09:56 Centrum Liq PO 5 ml QDAY VICKEY Administration Potassium Chloride 40 meq 06/19/19 10:00 07/17/19 09:57 Potassium Chloride FEEDTUBE 40 meq QDAY VICKEY Administration Scopolamine 1 each 06/27/19 09:00 07/15/19 09:06 Transderm-Scop TD 1 each Q3D VICKEY Administration Simple Syrup 15 ml 07/15/19 12:26 Simple Syrup FEEDTUBE PRN PRN Hypoglycemia Simple Syrup 30 ml 07/15/19 12:26 Simple Syrup FEEDTUBE PRN PRN Hypoglycemia Sodium Bicarbonate 325 mg 07/15/19 12:26 Sodium Bicarbonate FEEDTUBE PRN PRN For Clogged Feeding Tube Nutrition/Malnutrition Assess - Dietary Evaluation Nutrition/Malnutrition Findings: Nutrition Notes Start: 05/04/19 12:54 Freq: Status: Active Protocol: Document 07/15/19 12:23 CT (Rec: 07/15/19 12:26 CT [email or web address]) Co-Sign 07/15/19 12:23 LM Nutrition Notes Initial or Follow up Reassessment Current Diagnosis Acute Kidney Injury,Sepsis, Respiratory Failure Other Pertinent Diagnosis HD Current Diet Osmolite 1.5 at 60 ml/hr Labs/Tests Na 138 POC Glu 123 Pertinent Medications KCl Height 6 ft 4 in Weight 189.8 kg [place] Body Weight (kg) 91.81 BMI 50.9 Weight Status Morbidly Obese Subjective/Other Information Osmolite running at 60 ml/hr at time of visit. Pt tolerating TF. Percent of energy/protein needs met: 100%/100% Burn Absent Trauma Absent GI Symptoms None Current % PO Negligible Minimum of two criteria No Fluid Accumulation Moderate to Severe (severe) #1 Nutrition Diagnosis Inadequate oral intake Diagnosis Progress(for reassessment Continues documentation) Is patient on ventilator? Yes Is Patient Ambulatory and/or Out of Bed No REE-(Ceiba-. [facility]-confined to bed) 3534.288 Kcal/Kg value to use for calculation 11 Approximate Energy Requirements Using 8 kcal/Kg Calculation Used for Recommendations Kcal/kg Additional Notes PRO needs: 73-91g (0.8-1 g/kg IBW 91kg CARLA resolved) Fluid needs: 1 ml/kcal Nutrition Intervention Change Diet Order: Continue TF Nutrition Support: Osmolite at 60 ml/hr Flush 200 ml q4h Kcal 2,160 Protein (gm) 90 Fluid (mL) 1,097 Goal #1 TF tolerance Goal #2 Meet at least 80% of PRO/kcal needs via TF Anticipated Discharge Needs: Unable to determine at this time Follow-Up By: 07/21/19 Additional Comments Follow up for TF tolerance
[2019-07-17] MEDS: ACETAMINOPHEN 325 MG TAB PO PRN (21:06)
[2019-07-18] MEDS: INSULIN LISPRO 100 UNIT/ML SUB-Q SCH ×4 (01:00→18:58)
[2019-07-18] MEDS: ACETAMINOPHEN 325 MG TAB PO PRN (05:16)
--- NOTE | 2019-07-18 09:25 | Progress Note ---
Assessment and Plan Assessment and plan: Febrile illness - spiking low grade temp intermittently - Internal jugular tunneled hemodialysis catheter removed - ID following Acute respiratory failure; vent dependent/status post trach and PEG Off ventilatory support, on T-piece, cont trach care, scheduled nebulizers Pulmonary following Obesity hypoventilation syndrome Status post tracheostomy, titrate O2 sats to more than 90% Status post cardiac arrest mild anoxic brain injury EEG was negative for seizures and neurology evaluated Severe protein calorie malnutrition Oral pharyngeal dysphagia continue tube feeds Anemia of chronic disease Closely monitor H&H and transfuse as needed. 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 Now Patient is on Eliquis Acute kidney injury due to ATN Initially requiring dialysis Resolved, nephrology following. Hypernatremia/Hypokalemia/ hypomagnesemia Resolved Morbid obesity will need weight loss program upon discharge DVT prophylaxis scd /Eliquis Physical therapy/occupational therapy when patient is stable 07/16-patient with no fever as of yet since midnight 07/15. Cultures remain negative x72 hours. Patient remains vent dependent. 07/17consider to transfer out of the ICU to the floor. Continue tube feeding with aspiration precautions. Continue frequent suctioning, trach care, secretion control and airway management. Continue mobility protocols for pressu re ulcer prophylaxis. 07/18Continue tube feeding with aspiration precautions. Continue frequent marin ctioning, trach care, secretion control and airway management. Continue mobility protocols for pressure ulcer prophylaxis. The high probability of a clinically significant, sudden or life threatening deterioration of the [GI respiratory] system(s) required my full and direct attention, intervention and personal management. The aggregate critical care time was [31] minutes. This time is in addition to time spent performing reported procedures but includes the following: [x] Data Review and interpretation [x] Patient assessment and monitoring of vital signs [x] Documentation [x] Medication orders and management History Interval history: No new issues overnight. Hospitalist Physical - Constitutional Vitals: Temp Pulse Resp BP Pulse Ox 98.8 F 92 H 21 149/97 96 07/18/19 08:00 07/18/19 08:00 07/18/19 08:00 07/18/19 06:01 07/18/19 08:00 General appearance: Present: no acute distress, obese, other (tracheostomy /T- piece) - EENT Eyes: Present: PERRL, EOM intact ENT: hearing intact, clear oral mucosa, dentition normal - Neck Neck: Present: supple, normal ROM - Respiratory Respiratory effort: normal Respiratory: bilateral: CTA - Cardiovascular Rhythm: regular Heart Sounds: Present: S1 & S2. Absent: gallop, rub - Extremities Extremities: no ischemia, No edema, Full ROM - Abdominal General gastrointestinal: soft, non-tender, non-distended, normal bowel sounds - Integumentary Integumentary: Present: clear, warm, dry - Neurologic Neurologic: CNII-XII intact, moves all extremities Results - Labs CBC & Chem 7: 07/13/19 03:55 07/13/19 03:55 Labs: Laboratory Last Values WBC 11.4 K/mm3 (4.5-11.0) H 07/13/19 03:55 RBC 3.18 M/mm3 (3.65-5.03) L 07/13/19 03:55 Hgb 8.8 gm/dl (11.8-15.2) L 07/13/19 03:55 Hct 27.4 % (35.5-45.6) L 07/13/19 03:55 MCV 86 fl (84-94) 07/13/19 03:55 MCH 28 pg (28-32) 07/13/19 03:55 MCHC 32 % (32-34) 07/13/19 03:55 RDW 19.1 % (13.2-15.2) H 07/13/19 03:55 Plt Count 440 K/mm3 (140-440) 07/13/19 03:55 Lymph % (Auto) 8.3 % (13.4-35.0) L 07/01/19 07:58 [place] % (Auto) 10.0 % (0.0-7.3) H 07/01/19 07:58 Eos % (Auto) 1.5 % (0.0-4.3) 07/01/19 07:58 Baso % (Auto) 0.8 % (0.0-1.8) 07/01/19 07:58 Lymph # 0.9 K/mm3 (1.2-5.4) L 07/01/19 07:58 [place] # 1.2 K/mm3 (0.0-0.8) H 07/01/19 07:58 Eos # 0.2 K/mm3 (0.0-0.4) 07/01/19 07:58 Baso # 0.1 K/mm3 (0.0-0.1) 07/01/19 07:58 Add Manual Diff Complete 07/08/19 04:00 Total Counted 100 07/08/19 04:00 Seg Neutrophils % 79.4 % (40.0-70.0) H 07/01/19 07:58 Seg Neuts % (Manual) 76.0 % (40.0-70.0) H 07/08/19 04:00 Band Neutrophils % 0 % 07/08/19 04:00 Lymphocytes % (Manual) 16.0 % (13.4-35.0) 07/08/19 04:00 Reactive Lymphs % (Man) 0 % 07/08/19 04:00 Monocytes % (Manual) 6.0 % (0.0-7.3) 07/08/19 04:00 Eosinophils % (Manual) 2.0 % (0.0-4.3) 07/08/19 04:00 Basophils % (Manual) 0 % (0.0-1.8) 07/08/19 04:00 Metamyelocytes % 0 % 07/08/19 04:00 Myelocytes % 0 % 07/08/19 04:00 Promyelocytes % 0 % 07/08/19 04:00 Blast Cells % 0 % 07/08/19 04:00 Nucleated RBC % Not Reportable 07/08/19 04:00 Seg Neutrophils # 9.1 K/mm3 (1.8-7.7) H 07/01/19 07:58 Seg Neutrophils # Man 8.4 K/mm3 (1.8-7.7) H 07/08/19 04:00 Band Neutrophils # 0.0 K/mm3 07/08/19 04:00 Lymphocytes # (Manual) 1.8 K/mm3 (1.2-5.4) 07/08/19 04:00 Abs React Lymphs (Man) 0.0 K/mm3 07/08/19 04:00 Monocytes # (Manual) 0.7 K/mm3 (0.0-0.8) 07/08/19 04:00 Eosinophils # (Manual) 0.2 K/mm3 (0.0-0.4) 07/08/19 04:00 Basophils # (Manual) 0.0 K/mm3 (0.0-0.1) 07/08/19 04:00 Metamyelocytes # 0.0 K/mm3 07/08/19 04:00 Myelocytes # 0.0 K/mm3 07/08/19 04:00 Promyelocytes # 0.0 K/mm3 07/08/19 04:00 Blast Cells # 0.0 K/mm3 07/08/19 04:00 WBC Morphology Not Reportable 07/08/19 04:00 Hypersegmented Neuts Not Reportable 07/08/19 04:00 Hyposegmented Neuts Not Reportable 07/08/19 04:00 Hypogranular Neuts Not Reportable 07/08/19 04:00 Smudge Cells Not Reportable 07/08/19 04:00 Toxic Granulation Not Reportable 07/08/19 04:00 Toxic Vacuolation Not Reportable 07/08/19 04:00 Dohle Bodies Not Reportable 07/08/19 04:00 Pelger-Huet Anomaly Not Reportable 07/08/19 04:00 Renea Rods Not Reportable 07/08/19 04:00 Platelet Estimate Consistent w auto 07/08/19 04:00 Clumped Platelets Not Reportable 07/08/19 04:00 Plt Clumps, EDTA Not Reportable 07/08/19 04:00 Large Platelets Not Reportable 07/08/19 04:00 Giant Platelets Not Reportable 07/08/19 04:00 Platelet Satelliting Not Reportable 07/08/19 04:00 Plt Morphology Comment Not Reportable 07/08/19 04:00 RBC Morphology Not Reportable 07/08/19 04:00 Dimorphic RBCs Not Reportable 07/08/19 04:00 Polychromasia Not Reportable 07/08/19 04:00 Hypochromasia Not Reportable 07/08/19 04:00 Poikilocytosis Not Reportable 07/08/19 04:00 Anisocytosis 1+ 07/08/19 04:00 Microcytosis Not Reportable 07/08/19 04:00 Macrocytosis Not Reportable 07/08/19 04:00 Spherocytes Not Reportable 07/08/19 04:00 Pappenheimer Bodies Not Reportable 07/08/19 04:00 Sickle Cells Not Reportable 07/08/19 04:00 Target Cells Not Reportable 07/08/19 04:00 Tear Drop Cells Not Reportable 07/08/19 04:00 Ovalocytes Not Reportable 07/08/19 04:00 Stomatocytes 3+ 06/23/19 05:24 Helmet Cells Not Reportable 07/08/19 04:00 [place] Bodies Not Reportable 07/08/19 04:00 [place] Rings Not Reportable 07/08/19 04:00 [place] Cells Not Reportable 07/08/19 04:00 Bite Cells Not Reportable 07/08/19 04:00 Crenated Cell Not Reportable 07/08/19 04:00 Elliptocytes Not Reportable 07/08/19 04:00 Acanthocytes (Spur) Not Reportable 07/08/19 04:00 Rouleaux Not Reportable 07/08/19 04:00 Hemoglobin C Crystals Not Reportable 07/08/19 04:00 Schistocytes Not Reportable 07/08/19 04:00 Malaria parasites Not Reportable 07/08/19 04:00 [place] Bodies Not Reportable 07/08/19 04:00 Hem Pathologist Commnt No 07/08/19 04:00 PT 15.4 Sec. (12.2-14.9) H 05/01/19 Unknown INR 1.23 (0.87-1.13) H 05/01/19 Unknown APTT 22.7 Sec. (24.2-36.6) L 05/01/19 Unknown Fibrinogen 194 mg/dl (211-480) L 06/17/19 12:45 Heparin Anti-Xa, Unfract Negative (Negative) 06/17/19 12:45 POC ABG pH 7.462 (7.35-7.45) H 06/05/19 03:52 ABG pH 7.469 pH Units (7.350-7.450) H 06/23/19 02:00 POC ABG pCO2 39.8 (35-45) 06/05/19 03:52 ABG pCO2 39.4 mm Hg 06/23/19 02:00 POC ABG pO2 86 (80-105) 06/05/19 03:52 ABG pO2 58.7 mm Hg (80.0-90.0) L 06/23/19 02:00 POC ABG HCO3 28.4 (22-26 mml/L) 06/05/19 03:52 ABG HCO3 28.0 mmol/L (20.0-26.0) H 06/23/19 02:00 POC ABG Total CO2 30 (23-27mmol/L) 06/05/19 03:52 POC ABG O2 Sat 97 06/05/19 03:52 ABG O2 Saturation 94.6 % (95.0-99.0) L 06/23/19 02:00 ABG O2 Content 9.2 (0.0-44) 06/23/19 02:00 POC ABG Base Excess 5 ((-2) - (+3)mmol/L) 06/05/19 03:52 ABG Base Excess 4.0 mmol/L (-2.0-3.0) H 06/23/19 02:00 ABG Hemoglobin 7.1 gm/dl (14.0-18.0) L 06/23/19 02:00 ABG Carboxyhemoglobin 2.0 % (0.0-5.0) 06/23/19 02:00 ABG Methemoglobin 0.5 % (0.0-1.5) 06/23/19 02:00 Oxyhemoglobin 92.2 % (95.0-99.0) L 06/23/19 02:00 FiO2 30 % 06/23/19 02:00 Sodium 138 mmol/L (137-145) 07/13/19 03:55 Potassium 4.0 mmol/L (3.6-5.0) 07/13/19 03:55 Chloride 97.4 mmol/L (98-107) L 07/13/19 03:55 Carbon Dioxide 23 mmol/L (22-30) 07/13/19 03:55 Anion Gap 22 mmol/L 07/13/19 03:55 BUN 9 mg/dL (9-20) 07/13/19 03:55 Creatinine 0.5 mg/dL (0.8-1.5) L 07/13/19 03:55 Estimated GFR > 60 ml/min 07/13/19 03:55 BUN/Creatinine Ratio 18 % 07/13/19 03:55 Glucose 121 mg/dL (75-100) H 07/13/19 03:55 POC Glucose 107 (70-105) H 07/18/19 06:24 Osmolality 327 Mosm/kg 05/07/19 13:45 Uric Acid 18.0 mg/dL (3.5-7.6) H 05/07/19 13:45 Calcium 9.6 mg/dL (8.4-10.2) 07/13/19 03:55 Phosphorus 3.70 mg/dL (2.5-4.5) 06/10/19 05:45 Magnesium 1.60 mg/dL (1.7-2.3) L 06/26/19 04:43 Iron 45 ug/dL (49-181) L 06/20/19 09:12 TIBC 110 mcg/dL (250-450) L 06/20/19 09:12 Ferritin 315.2 ng/mL (13.0-400.0) 06/20/19 09:12 Total Bilirubin 0.50 mg/dL (0.1-1.2) 06/08/19 04:20 AST 23 units/L (5-40) 06/08/19 04:20 ALT 66 units/L (7-56) H 06/08/19 04:20 Alkaline Phosphatase 59 units/L (35-129) 06/08/19 04:20 Total Creatine Kinase 131 units/L (55-170) 05/02/19 04:41 CK-MB (CK-2) 5.2 ng/mL (0.0-4.0) H 05/02/19 04:41 CK-MB (CK-2) Rel Index 3.9 (0-4) 05/02/19 04:41 Troponin T 0.067 ng/mL (0.00-0.029) H D 05/02/19 04:41 NT-Pro-B Natriuret Pep 6831 pg/mL (0-450) H 05/01/19 Unknown Total Protein 5.5 g/dL (6.3-8.2) L 06/08/19 04:20 Albumin 2.9 g/dL (3.9-5) L 06/08/19 04:20 Albumin/Globulin Ratio 1.1 % 06/08/19 04:20 Triglycerides 210 mg/dL (2-149) H 06/19/19 04:30 Cholesterol 173 mg/dL (50-199) 05/02/19 00:06 LDL Cholesterol Direct 126 mg/dL (50-130) 05/02/19 00:06 HDL Cholesterol 18 mg/dL (40-59) L 05/02/19 00:06 Cholesterol/HDL Ratio 9.61 % 05/02/19 00:06 Serotonin Release Assay See scanned results 06/17/19 12:45 Vitamin B12 353.0 pg/mL (211-911) 06/20/19 09:12 Folate 7.01 ng/mL (7.3-26.0) L 06/20/19 09:12 Procalcitonin 0.05 ng/mL (<0.15) 06/17/19 12:45 Urine Color Yellow (Yellow) 06/17/19 12:45 Urine Turbidity Slightly-cloudy (Clear) 06/17/19 12:45 Urine pH 5.0 (5.0-7.0) 06/17/19 12:45 Ur Specific [place] 1.013 (1.003-1.030) 06/17/19 12:45 Urine Protein <15 mg/dl mg/dL (Negative) 06/17/19 12:45 Urine Glucose (UA) Neg mg/dL (Negative) 06/17/19 12:45 Urine Ketones Neg mg/dL (Negative) 06/17/19 12:45 Urine Blood Sm (Negative) 06/17/19 12:45 Urine Nitrite Neg (Negative) 06/17/19 12:45 Urine Bilirubin Neg (Negative) 06/17/19 12:45 Urine Urobilinogen < 2.0 mg/dL (<2.0) 06/17/19 12:45 Ur Leukocyte Esterase Neg (Negative) 06/17/19 12:45 Urine WBC (Auto) 2.0 /HPF (0.0-6.0) 06/17/19 12:45 Urine RBC (Auto) 2.0 /HPF (0.0-6.0) 06/17/19 12:45 U Epithel Cells (Auto) < 1.0 /HPF (0-13.0) 06/17/19 12:45 Urine Bacteria (Auto) 1+ /HPF (Negative) 05/20/19 12:00 Uric Acid Crystals 3+ 05/03/19 10:55 Urine Mucus Few /HPF 06/17/19 12:45 Urine Yeast (Budding) 3+ /HPF 05/20/19 12:00 Urine Creatinine 292.8 mg/dL (0.1-20.0) H 05/07/19 22:40 Urine Sodium 11 mmol/L 05/07/19 22:40 Urine Total Protein 269 mg/dL (5-11.8) H 05/07/19 22:40 Vancomycin Trough 20.5 ug/mL (5.0-20.0) H 05/15/19 09:00 Random Vancomycin 11.5 ug/mL (0-40.0) 05/27/19 06:00 AMNA Screen Negative (Negative) 05/07/19 13:45 Heparin-induced Plt Ab Negative (Negative) 06/17/19 12:45 UF Heparin High Dose 13 % Release 06/17/19 12:45 YUNG UFH Low Dose 0.1 8 % Release 06/17/19 12:45 YUNG UFH Low Dose 0.5 7 % Release 06/17/19 12:45 Hepatitis A IgM Ab Non-reactive (NonReactive) 05/07/19 13:45 Hep Bs Antigen Non-reactive (Negative) 05/07/19 13:45 Hep B Core IgM Ab Non-reactive (NonReactive) 05/07/19 13:45 Hepatitis C Antibody Non-reactive (NonReactive) 05/07/19 13:45 Influenza A (Rapid) Negative (Negative) 06/17/19 11:35 Influenza B (Rapid) Negative (Negative) 06/17/19 11:35 Active Medications - Current Medications Current Medications: Generic Name Dose Route Start Last Admin Trade Name Freq PRN Reason Stop Dose Admin Acetaminophen 650 mg 07/02/19 23:56 07/18/19 05:16 Tylenol PO 650 mg Q4H PRN Administration Pain, Mild (1-3) Amlodipine Besylate 10 mg 06/25/19 11:00 07/17/19 09:57 Amlodipine PO 10 mg DAILY VICKEY Administration Lipase/Protease/Amylase 1 each 07/15/19 12:26 Pancreaze 10,500 Unit FEEDTUBE PRN PRN For Clogged Feeding Tube Apixaban 2.5 mg 06/23/19 22:00 07/17/19 21:06 Eliquis PO 2.5 mg Q12HR VICKEY Administration Protocol Dextrose 50 gm 05/01/19 20:24 D50w (25gm) Vial IV Q30MIN PRN Hypoglycemia Protocol Famotidine 20 mg 06/17/19 10:00 07/17/19 21:05 Pepcid PO 20 mg BID VICKEY Administration Ferrous Sulfate 308 mg 06/18/19 12:00 07/17/19 09:56 Ferrous Sulfate PO 308 mg QDAY VICKEY Administration Hydrochlorothiazide 25 mg 06/26/19 11:00 07/17/19 09:58 Hctz PO 25 mg QDAY VICKEY Administration Insulin Human Lispro 0 unit 06/01/19 14:00 07/18/19 06:18 Humalog SUB-Q Not Given Q6HR [facility] Protocol Labetalol HCl 200 mg 06/28/19 10:00 07/18/19 05:16 Labetalol PO 200 mg Q8HR VICKEY Administration Multi-Ingred Cream/Lotion/Oil/Oint 1 applic 06/16/19 18:00 Artificial Tears Ophth Oint OU Q4HR PRN Dry Eye(s) Multivitamins 5 ml 06/29/19 12:00 07/17/19 09:56 Centrum Liq PO 5 ml QDAY VICKEY Administration Potassium Chloride 40 meq 06/19/19 10:00 07/17/19 09:57 Potassium Chloride FEEDTUBE 40 meq QDAY VICKEY Administration Scopolamine 1 each 06/27/19 09:00 07/15/19 09:06 Transderm-Scop TD 1 each Q3D VICKEY Administration Simple Syrup 15 ml 07/15/19 12:26 Simple Syrup FEEDTUBE PRN PRN Hypoglycemia Simple Syrup 30 ml 07/15/19 12:26 Simple Syrup FEEDTUBE PRN PRN Hypoglycemia Sodium Bicarbonate 325 mg 07/15/19 12:26 Sodium Bicarbonate FEEDTUBE PRN PRN For Clogged Feeding Tube Nutrition/Malnutrition Assess - Dietary Evaluation Nutrition/Malnutrition Findings: Nutrition Notes Start: 05/04/19 12:54 Freq: Status: Active Protocol: Document 07/15/19 12:23 CT (Rec: 07/15/19 12:26 CT [email or web address]) Co-Sign 07/15/19 12:23 LM Nutrition Notes Initial or Follow up Reassessment Current Diagnosis Acute Kidney Injury,Sepsis, Respiratory Failure Other Pertinent Diagnosis HD Current Diet Osmolite 1.5 at 60 ml/hr Labs/Tests Na 138 POC Glu 123 Pertinent Medications KCl Height 6 ft 4 in Weight 189.8 kg [place] Body Weight (kg) 91.81 BMI 50.9 Weight Status Morbidly Obese Subjective/Other Information Osmolite running at 60 ml/hr at time of visit. Pt tolerating TF. Percent of energy/protein needs met: 100%/100% Burn Absent Trauma Absent GI Symptoms None Current % PO Negligible Minimum of two criteria No Fluid Accumulation Moderate to Severe (severe) #1 Nutrition Diagnosis Inadequate oral intake Diagnosis Progress(for reassessment Continues documentation) Is patient on ventilator? Yes Is Patient Ambulatory and/or Out of Bed No REE-([facility]-confined to bed) 3534.288 Kcal/Kg value to use for calculation 11 Approximate Energy Requirements Using 8 kcal/Kg Calculation Used for Recommendations Kcal/kg Additional Notes PRO needs: 73-91g (0.8-1 g/kg IBW 91kg CARLA resolved) Fluid needs: 1 ml/kcal Nutrition Intervention Change Diet Order: Continue TF Nutrition Support: Osmolite at 60 ml/hr Flush 200 ml q4h Kcal 2,160 Protein (gm) 90 Fluid (mL) 1,097 Goal #1 TF tolerance Goal #2 Meet at least 80% of PRO/kcal needs via TF Anticipated Discharge Needs: Unable to determine at this time Follow-Up By: 07/21/19 Additional Comments Follow up for TF tolerance
[2019-07-18] MEDS: amLODIPine 10 MG TAB PO SCH (09:32)
[2019-07-18] MEDS: hydroCHLOROthiazide 25 MG TAB PO SCH (09:40)
[2019-07-18] MEDS: POTASSIUM CHLORIDE 20 MEQ PACKET FEEDTUBE SCH (09:40)
[2019-07-18] MEDS: FAMOTIDINE 20 MG TAB PO SCH ×2 (09:41→21:20)
[2019-07-18] MEDS: MULTIVITAMINS 5 ML ORAL LIQUID PO SCH (09:41)
[2019-07-18] MEDS: SCOPOLAMINE TRANSDERMAL PATCH 72 HR TD SCH (09:41)
[2019-07-18] MEDS: FERROUS SULFATE 308 MG (62mg Elemental Iron) / 7 ML ELIXIR PO SCH (09:41)
[2019-07-18] MEDS: APIXABAN 2.5 MG TAB PO SCH ×2 (09:41→21:19)
--- NOTE | 2019-07-18 10:49 | Progress Note ---
Assessment and Plan - Patient Problems (1) Acute heart failure with preserved ejection fraction Current Visit: Yes Status: Acute (2) Acute kidney injury Current Visit: Yes Status: Resolved (3) Acute on chronic respiratory failure Current Visit: Yes Status: Acute Qualifiers: Respiratory failure complication: hypoxia Qualified Code(s): J96.21 - Acute and chronic respiratory failure with hypoxia (4) Anemia Current Visit: Yes Status: Acute (5) Cardiac arrest Current Visit: Yes Status: Acute (6) DVT prophylaxis Current Visit: Yes Status: Acute (7) Hypercapnic respiratory failure Current Visit: Yes Status: Acute Qualifiers: Chronicity: acute on chronic Qualified Code(s): J96.22 - Acute and chronic respiratory failure with hypercapnia (8) NSVT (nonsustained ventricular tachycardia) Current Visit: Yes Status: Acute (9) Noncompliance with CPAP treatment Current Visit: Yes Status: Acute (10) Morbid obesity Current Visit: Yes Status: Chronic (11) Congestive heart failure Current Visit: Yes Status: Suspected (12) LANDON (obstructive sleep apnea) Current Visit: Yes Status: Suspected (13) Physical deconditioning Current Visit: Yes Status: Acute Subjective Principal diagnosis: anemia - LOw PLT Interval history: awake on tpiece Objective Vital Signs - 12hr 07/17/19 07/17/19 07/18/19 23:46 23:53 00:00 Temperature 99.0 F Pulse Rate 90 Pulse Rate [ 92 H From Monitor] Respiratory 15 Rate Blood Pressure O2 Sat by Pulse 97 Oximetry O2 Sat by Pulse Oximetry [ Assessment] 07/18/19 07/18/19 07/18/19 00:01 01:15 02:01 Temperature Pulse Rate 94 H Pulse Rate [ From Monitor] Respiratory 15 13 Rate Blood Pressure 120/65 138/81 O2 Sat by Pulse 92 100 Oximetry O2 Sat by Pulse 100 Oximetry [ Assessment] 07/18/19 07/18/19 07/18/19 03:26 04:00 04:01 Temperature 100.3 F H Pulse Rate 94 H 100 H Pulse Rate [ 97 H From Monitor] Respiratory 19 25 H Rate Blood Pressure 138/81 O2 Sat by Pulse 99 98 Oximetry O2 Sat by Pulse Oximetry [ Assessment] 07/18/19 07/18/19 07/18/19 06:01 07:50 08:00 Temperature 98.8 F Pulse Rate 102 H 92 H Pulse Rate [ 92 H From Monitor] Respiratory 21 Rate Blood Pressure 149/97 O2 Sat by Pulse 99 99 96 Oximetry O2 Sat by Pulse 99 Oximetry [ Assessment] 07/18/19 09:32 Temperature Pulse Rate 97 H Pulse Rate [ From Monitor] Respiratory Rate Blood Pressure 99/50 O2 Sat by Pulse Oximetry O2 Sat by Pulse Oximetry [ Assessment] Constitutional: other (morbidly obese male,on trach tpiece) Eyes: non-icteric ENT: oropharynx moist Neck: supple, other (extremely large in circumference trach in place) Effort: normal Ascultation: Bilateral: diminished breath sounds (secondary to body habitus), rhonchi Cardiovascular: regular rate and rhythm (no mrg) Gastrointestinal: normoactive bowel sounds, soft, non-tender, other (obese) Integumentary: other (L hand is wrapped) Extremities: no cyanosis, pink and warm, other (1+ generalized edema) Neurologic: normal mental status, non-focal exam Psychiatric: mood appropriate, affect normal CBC and BMP: 07/13/19 03:55 07/13/19 03:55 ABG, PT/INR, D-dimer: ABG POC ABG pH 7.462 (7.35-7.45) H 06/05/19 03:52 ABG pH 7.469 pH Units (7.350-7.450) H 06/23/19 02:00 POC ABG pCO2 39.8 (35-45) 06/05/19 03:52 ABG pCO2 39.4 mm Hg 06/23/19 02:00 POC ABG pO2 86 (80-105) 06/05/19 03:52 ABG pO2 58.7 mm Hg (80.0-90.0) L 06/23/19 02:00 POC ABG HCO3 28.4 (22-26 mml/L) 06/05/19 03:52 POC ABG Total CO2 30 (23-27mmol/L) 06/05/19 03:52 POC ABG O2 Sat 97 06/05/19 03:52 ABG O2 Saturation 94.6 % (95.0-99.0) L 06/23/19 02:00 PT/INR, D-dimer PT 15.4 Sec. (12.2-14.9) H 05/01/19 Unknown INR 1.23 (0.87-1.13) H 05/01/19 Unknown Abnormal lab findings: Abnormal Labs 05/01/19 05/01/19 05/01/19 17:50 19:26 22:36 WBC RBC Hgb Hct MCV MCH MCHC RDW Plt Count Lymph % (Auto) [place] % (Auto) Eos % (Auto) Lymph # [place] # Eos # Seg Neutrophils % Seg Neuts % (Manual) Lymphocytes % (Manual) Monocytes % (Manual) Eosinophils % (Manual) Nucleated RBC % Seg Neutrophils # Seg Neutrophils # Man Lymphocytes # (Manual) Monocytes # (Manual) Eosinophils # (Manual) PT INR APTT Fibrinogen POC ABG pH 7.272 L 7.331 L ABG pH POC ABG pCO2 52.8 H POC ABG pO2 ABG pO2 ABG HCO3 ABG O2 Saturation ABG Base Excess ABG Hemoglobin Oxyhemoglobin Sodium 136 L Potassium 6.5 H* Chloride 97.2 L Carbon Dioxide BUN 60 H Creatinine Glucose 113 H POC Glucose Uric Acid Calcium Phosphorus Magnesium 2.40 H Iron TIBC AST 139 H ALT 154 H Total Creatine Kinase CK-MB (CK-2) Troponin T NT-Pro-B Natriuret Pep Total Protein Albumin 3.8 L Triglycerides HDL Cholesterol Folate Urine WBC (Auto) Urine Creatinine Urine Total Protein Vancomycin Trough 05/01/19 05/01/19 05/01/19 Unknown Unknown Unknown WBC 16.1 H RBC Hgb Hct MCV MCH MCHC RDW 17.2 H Plt Count Lymph % (Auto) [place] % (Auto) 9.6 H Eos % (Auto) Lymph # [place] # 1.5 H Eos # Seg Neutrophils % 73.0 H Seg Neuts % (Manual) Lymphocytes % (Manual) Monocytes % (Manual) Eosinophils % (Manual) Nucleated RBC % Seg Neutrophils # 11.7 H Seg Neutrophils # Man Lymphocytes # (Manual) Monocytes # (Manual) Eosinophils # (Manual) PT 15.4 H INR 1.23 H APTT 22.7 L Fibrinogen POC ABG pH ABG pH POC ABG pCO2 POC ABG pO2 ABG pO2 ABG HCO3 ABG O2 Saturation ABG Base Excess ABG Hemoglobin Oxyhemoglobin Sodium Potassium Chloride Carbon Dioxide BUN Creatinine Glucose POC Glucose Uric Acid Calcium Phosphorus Magnesium Iron TIBC AST ALT Total Creatine Kinase CK-MB (CK-2) Troponin T NT-Pro-B Natriuret Pep 6831 H Total Protein Albumin Triglycerides HDL Cholesterol Folate Urine WBC (Auto) Urine Creatinine Urine Total Protein Vancomycin Trough 05/01/19 05/02/19 05/02/19 Unknown 00:06 00:06 WBC RBC Hgb Hct MCV MCH MCHC RDW Plt Count Lymph % (Auto) [place] % (Auto) Eos % (Auto) Lymph # [place] # Eos # Seg Neutrophils % Seg Neuts % (Manual) Lymphocytes % (Manual) Monocytes % (Manual) Eosinophils % (Manual) Nucleated RBC % Seg Neutrophils # Seg Neutrophils # Man Lymphocytes # (Manual) Monocytes # (Manual) Eosinophils # (Manual) PT INR APTT Fibrinogen POC ABG pH ABG pH POC ABG pCO2 POC ABG pO2 ABG pO2 ABG HCO3 ABG O2 Saturation ABG Base Excess ABG Hemoglobin Oxyhemoglobin Sodium Potassium Chloride Carbon Dioxide BUN Creatinine Glucose POC Glucose Uric Acid Calcium Phosphorus 4.90 H Magnesium Iron TIBC AST ALT Total Creatine Kinase 226 H CK-MB (CK-2) 5.7 H Troponin T 0.044 H NT-Pro-B Natriuret Pep Total Protein Albumin Triglycerides 182 H HDL Cholesterol 18 L Folate Urine WBC (Auto) Urine Creatinine Urine Total Protein Vancomycin Trough 05/02/19 05/02/19 05/02/19 02:08 04:40 04:41 WBC 17.6 H RBC Hgb Hct MCV MCH 27 L MCHC RDW 17.4 H Plt Count Lymph % (Auto) 10.2 L [place] % (Auto) 11.0 H Eos % (Auto) Lymph # [place] # 1.9 H Eos # Seg Neutrophils % 78.0 H Seg Neuts % (Manual) Lymphocytes % (Manual) Monocytes % (Manual) Eosinophils % (Manual) Nucleated RBC % Seg Neutrophils # 13.8 H Seg Neutrophils # Man Lymphocytes # (Manual) Monocytes # (Manual) Eosinophils # (Manual) PT INR APTT Fibrinogen POC ABG pH ABG pH POC ABG pCO2 46.8 H POC ABG pO2 63 L ABG pO2 ABG HCO3 ABG O2 Saturation ABG Base Excess ABG Hemoglobin Oxyhemoglobin Sodium Potassium Chloride 96.3 L Carbon Dioxide BUN 63 H Creatinine 1.7 H Glucose POC Glucose Uric Acid Calcium Phosphorus Magnesium Iron TIBC AST ALT Total Creatine Kinase CK-MB (CK-2) Troponin T NT-Pro-B Natriuret Pep Total Protein Albumin Triglycerides HDL Cholesterol Folate Urine WBC (Auto) Urine Creatinine Urine Total Protein Vancomycin Trough 05/02/19 05/02/19 05/02/19 04:41 04:41 16:05 WBC RBC Hgb Hct MCV MCH MCHC RDW Plt Count Lymph % (Auto) [place] % (Auto) Eos % (Auto) Lymph # [place] # Eos # Seg Neutrophils % Seg Neuts % (Manual) Lymphocytes % (Manual) Monocytes % (Manual) Eosinophils % (Manual) Nucleated RBC % Seg Neutrophils # Seg Neutrophils # Man Lymphocytes # (Manual) Monocytes # (Manual) Eosinophils # (Manual) PT INR APTT Fibrinogen POC ABG pH ABG pH POC ABG pCO2 POC ABG pO2 ABG pO2 66.6 L ABG HCO3 31.9 H ABG O2 Saturation 92.5 L ABG Base Excess 5.8 H ABG Hemoglobin 13.3 L Oxyhemoglobin 90.6 L Sodium Potassium Chloride 97.2 L Carbon Dioxide BUN 61 H Creatinine 1.8 H Glucose POC Glucose Uric Acid Calcium Phosphorus Magnesium Iron TIBC AST ALT Total Creatine Kinase CK-MB (CK-2) 5.2 H Troponin T 0.067 H D NT-Pro-B Natriuret Pep Total Protein Albumin Triglycerides HDL Cholesterol Folate Urine WBC (Auto) Urine Creatinine Urine Total Protein Vancomycin Trough 05/02/19 05/03/19 05/03/19 20:39 04:35 05:05 WBC 11.8 H RBC Hgb Hct MCV MCH 27 L MCHC 31 L RDW 17.2 H Plt Count Lymph % (Auto) [place] % (Auto) Eos % (Auto) Lymph # [place] # Eos # Seg Neutrophils % Seg Neuts % (Manual) Lymphocytes % (Manual) Monocytes % (Manual) Eosinophils % (Manual) Nucleated RBC % Seg Neutrophils # Seg Neutrophils # Man Lymphocytes # (Manual) Monocytes # (Manual) Eosinophils # (Manual) PT INR APTT Fibrinogen POC ABG pH ABG pH POC ABG pCO2 53.6 H 54.0 H POC ABG pO2 55 L 63 L ABG pO2 ABG HCO3 ABG O2 Saturation ABG Base Excess ABG Hemoglobin Oxyhemoglobin Sodium Potassium Chloride Carbon Dioxide BUN Creatinine Glucose POC Glucose Uric Acid Calcium Phosphorus Magnesium Iron TIBC AST ALT Total Creatine Kinase CK-MB (CK-2) Troponin T NT-Pro-B Natriuret Pep Total Protein Albumin Triglycerides HDL Cholesterol Folate Urine WBC (Auto) Urine Creatinine Urine Total Protein Vancomycin Trough 05/03/19 05/03/19 05/03/19 05:05 10:55 16:48 WBC RBC Hgb Hct MCV MCH MCHC RDW Plt Count Lymph % (Auto) [place] % (Auto) Eos % (Auto) Lymph # [place] # Eos # Seg Neutrophils % Seg Neuts % (Manual) Lymphocytes % (Manual) Monocytes % (Manual) Eosinophils % (Manual) Nucleated RBC % Seg Neutrophils # Seg Neutrophils # Man Lymphocytes # (Manual) Monocytes # (Manual) Eosinophils # (Manual) PT INR APTT Fibrinogen POC ABG pH 7.604 H ABG pH POC ABG pCO2 POC ABG pO2 58 L ABG pO2 ABG HCO3 ABG O2 Saturation ABG Base Excess ABG Hemoglobin Oxyhemoglobin Sodium Potassium Chloride Carbon Dioxide BUN 52 H Creatinine 1.9 H Glucose 103 H POC Glucose Uric Acid Calcium Phosphorus Magnesium Iron TIBC AST ALT Total Creatine Kinase CK-MB (CK-2) Troponin T NT-Pro-B Natriuret Pep Total Protein Albumin Triglycerides HDL Cholesterol Folate Urine WBC (Auto) 33.0 H Urine Creatinine Urine Total Protein Vancomycin Trough 05/04/19 05/04/19 05/04/19 04:49 06:50 06:50 WBC 16.0 H RBC Hgb Hct MCV MCH 27 L MCHC 31 L RDW 17.8 H Plt Count Lymph % (Auto) [place] % (Auto) Eos % (Auto) Lymph # [place] # Eos # Seg Neutrophils % Seg Neuts % (Manual) Lymphocytes % (Manual) Monocytes % (Manual) Eosinophils % (Manual) Nucleated RBC % Seg Neutrophils # Seg Neutrophils # Man Lymphocytes # (Manual) Monocytes # (Manual) Eosinophils # (Manual) PT INR APTT Fibrinogen POC ABG pH 7.273 L ABG pH POC ABG pCO2 POC ABG pO2 ABG pO2 ABG HCO3 ABG O2 Saturation ABG Base Excess ABG Hemoglobin Oxyhemoglobin Sodium 148 H Potassium 5.5 H Chloride Carbon Dioxide BUN 53 H Creatinine 3.3 H D Glucose 106 H POC Glucose Uric Acid Calcium 8.3 L Phosphorus Magnesium Iron TIBC AST ALT Total Creatine Kinase CK-MB (CK-2) Troponin T NT-Pro-B Natriuret Pep Total Protein Albumin Triglycerides HDL Cholesterol Folate Urine WBC (Auto) Urine Creatinine Urine Total Protein Vancomycin Trough 05/05/19 05/05/19 05/05/19 00:05 04:30 05:00 WBC RBC Hgb Hct MCV MCH MCHC RDW Plt Count Lymph % (Auto) [place] % (Auto) Eos % (Auto) Lymph # [place] # Eos # Seg Neutrophils % Seg Neuts % (Manual) Lymphocytes % (Manual) Monocytes % (Manual) Eosinophils % (Manual) Nucleated RBC % Seg Neutrophils # Seg Neutrophils # Man Lymphocytes # (Manual) Monocytes # (Manual) Eosinophils # (Manual) PT INR APTT Fibrinogen POC ABG pH 7.225 L ABG pH POC ABG pCO2 > 70 H POC ABG pO2 ABG pO2 ABG HCO3 ABG O2 Saturation ABG Base Excess ABG Hemoglobin Oxyhemoglobin Sodium 151 H Potassium 5.1 H Chloride Carbon Dioxide BUN 64 H Creatinine 3.5 H Glucose 117 H POC Glucose 141 H Uric Acid Calcium 7.5 L Phosphorus Magnesium Iron TIBC AST 93 H ALT 65 H Total Creatine Kinase CK-MB (CK-2) Troponin T NT-Pro-B Natriuret Pep Total Protein Albumin 2.9 L Triglycerides HDL Cholesterol Folate Urine WBC (Auto) Urine Creatinine Urine Total Protein Vancomycin Trough 05/05/19 05/05/19 05/05/19 05:00 12:02 17:46 WBC 12.0 H RBC Hgb 11.3 L Hct MCV MCH 27 L MCHC 30 L RDW 18.4 H Plt Count Lymph % (Auto) 7.9 L [place] % (Auto) 10.2 H Eos % (Auto) Lymph # 1.0 L [place] # 1.2 H Eos # Seg Neutrophils % 80.8 H Seg Neuts % (Manual) Lymphocytes % (Manual) Monocytes % (Manual) Eosinophils % (Manual) Nucleated RBC % Seg Neutrophils # 9.7 H Seg Neutrophils # Man Lymphocytes # (Manual) Monocytes # (Manual) Eosinophils # (Manual) PT INR APTT Fibrinogen POC ABG pH ABG pH POC ABG pCO2 POC ABG pO2 ABG pO2 ABG HCO3 ABG O2 Saturation ABG Base Excess ABG Hemoglobin Oxyhemoglobin Sodium Potassium Chloride Carbon Dioxide BUN Creatinine Glucose POC Glucose 125 H 112 H Uric Acid Calcium Phosphorus Magnesium Iron TIBC AST ALT Total Creatine Kinase CK-MB (CK-2) Troponin T NT-Pro-B Natriuret Pep Total Protein Albumin Triglycerides HDL Cholesterol Folate Urine WBC (Auto) Urine Creatinine Urine Total Protein Vancomycin Trough 05/05/19 05/06/19 05/06/19 23:42 03:58 04:45 WBC 11.4 H RBC Hgb 10.7 L Hct 34.2 L MCV MCH 27 L MCHC 31 L RDW 16.9 H Plt Count Lymph % (Auto) [place] % (Auto) Eos % (Auto) Lymph # [place] # Eos # Seg Neutrophils % Seg Neuts % (Manual) Lymphocytes % (Manual) Monocytes % (Manual) Eosinophils % (Manual) Nucleated RBC % Seg Neutrophils # Seg Neutrophils # Man Lymphocytes # (Manual) Monocytes # (Manual) Eosinophils # (Manual) PT INR APTT Fibrinogen POC ABG pH ABG pH POC ABG pCO2 62.4 H POC ABG pO2 111 H ABG pO2 ABG HCO3 ABG O2 Saturation ABG Base Excess ABG Hemoglobin Oxyhemoglobin Sodium Potassium Chloride Carbon Dioxide BUN Creatinine Glucose POC Glucose 128 H Uric Acid Calcium Phosphorus Magnesium Iron TIBC AST ALT Total Creatine Kinase CK-MB (CK-2) Troponin T NT-Pro-B Natriuret Pep Total Protein Albumin Triglycerides HDL Cholesterol Folate Urine WBC (Auto) Urine Creatinine Urine Total Protein Vancomycin Trough 05/06/19 05/06/19 05/06/19 04:45 05:33 12:30 WBC RBC Hgb Hct MCV MCH MCHC RDW Plt Count Lymph % (Auto) [place] % (Auto) Eos % (Auto) Lymph # [place] # Eos # Seg Neutrophils % Seg Neuts % (Manual) Lymphocytes % (Manual) Monocytes % (Manual) Eosinophils % (Manual) Nucleated RBC % Seg Neutrophils # Seg Neutrophils # Man Lymphocytes # (Manual) Monocytes # (Manual) Eosinophils # (Manual) PT INR APTT Fibrinogen POC ABG pH ABG pH POC ABG pCO2 POC ABG pO2 ABG pO2 ABG HCO3 ABG O2 Saturation ABG Base Excess ABG Hemoglobin Oxyhemoglobin Sodium 149 H Potassium Chloride Carbon Dioxide 31 H BUN 67 H Creatinine 3.2 H Glucose 125 H POC Glucose 117 H 116 H Uric Acid Calcium 7.5 L Phosphorus Magnesium Iron TIBC AST ALT Total Creatine Kinase CK-MB (CK-2) Troponin T NT-Pro-B Natriuret Pep Total Protein Albumin Triglycerides HDL Cholesterol Folate Urine WBC (Auto) Urine Creatinine Urine Total Protein Vancomycin Trough 05/06/19 05/06/19 05/07/19 18:34 23:16 05:22 WBC RBC Hgb Hct MCV MCH MCHC RDW Plt Count Lymph % (Auto) [place] % (Auto) Eos % (Auto) Lymph # [place] # Eos # Seg Neutrophils % Seg Neuts % (Manual) Lymphocytes % (Manual) Monocytes % (Manual) Eosinophils % (Manual) Nucleated RBC % Seg Neutrophils # Seg Neutrophils # Man Lymphocytes # (Manual) Monocytes # (Manual) Eosinophils # (Manual) PT INR APTT Fibrinogen POC ABG pH ABG pH POC ABG pCO2 POC ABG pO2 ABG pO2 ABG HCO3 ABG O2 Saturation ABG Base Excess ABG Hemoglobin Oxyhemoglobin Sodium Potassium Chloride Carbon Dioxide BUN Creatinine Glucose POC Glucose 128 H 143 H 166 H Uric Acid Calcium Phosphorus Magnesium Iron TIBC AST ALT Total Creatine Kinase CK-MB (CK-2) Troponin T NT-Pro-B Natriuret Pep Total Protein Albumin Triglycerides HDL Cholesterol Folate Urine WBC (Auto) Urine Creatinine Urine Total Protein Vancomycin Trough 05/07/19 05/07/19 05/07/19 06:33 07:03 09:35 WBC RBC Hgb Hct MCV MCH MCHC RDW Plt Count Lymph % (Auto) [place] % (Auto) Eos % (Auto) Lymph # [place] # Eos # Seg Neutrophils % Seg Neuts % (Manual) Lymphocytes % (Manual) Monocytes % (Manual) Eosinophils % (Manual) Nucleated RBC % Seg Neutrophils # Seg Neutrophils # Man Lymphocytes # (Manual) Monocytes # (Manual) Eosinophils # (Manual) PT INR APTT Fibrinogen POC ABG pH 7.263 L 7.288 L ABG pH POC ABG pCO2 POC ABG pO2 51 L 56 L ABG pO2 ABG HCO3 ABG O2 Saturation ABG Base Excess ABG Hemoglobin Oxyhemoglobin Sodium Potassium Chloride Carbon Dioxide BUN 76 H Creatinine 3.2 H Glucose 147 H POC Glucose Uric Acid Calcium 7.9 L Phosphorus Magnesium Iron TIBC AST ALT Total Creatine Kinase CK-MB (CK-2) Troponin T NT-Pro-B Natriuret Pep Total Protein Albumin Triglycerides HDL Cholesterol Folate Urine WBC (Auto) Urine Creatinine Urine Total Protein Vancomycin Trough 05/07/19 05/07/19 05/07/19 09:35 12:17 13:45 WBC 13.4 H RBC Hgb 11.6 L Hct MCV MCH 27 L MCHC 31 L RDW 17.5 H Plt Count Lymph % (Auto) [place] % (Auto) Eos % (Auto) Lymph # [place] # Eos # Seg Neutrophils % Seg Neuts % (Manual) Lymphocytes % (Manual) Monocytes % (Manual) Eosinophils % (Manual) Nucleated RBC % Seg Neutrophils # Seg Neutrophils # Man Lymphocytes # (Manual) Monocytes # (Manual) Eosinophils # (Manual) PT INR APTT Fibrinogen POC ABG pH ABG pH POC ABG pCO2 POC ABG pO2 ABG pO2 ABG HCO3 ABG O2 Saturation ABG Base Excess ABG Hemoglobin Oxyhemoglobin Sodium Potassium Chloride Carbon Dioxide BUN Creatinine Glucose POC Glucose 130 H Uric Acid 18.0 H Calcium Phosphorus Magnesium Iron TIBC AST ALT Total Creatine Kinase CK-MB (CK-2) Troponin T NT-Pro-B Natriuret Pep Total Protein Albumin Triglycerides HDL Cholesterol Folate Urine WBC (Auto) Urine Creatinine Urine Total Protein Vancomycin Trough 05/07/19 05/07/19 05/08/19 17:39 22:40 05:06 WBC RBC Hgb Hct MCV MCH MCHC RDW Plt Count Lymph % (Auto) [place] % (Auto) Eos % (Auto) Lymph # [place] # Eos # Seg Neutrophils % Seg Neuts % (Manual) Lymphocytes % (Manual) Monocytes % (Manual) Eosinophils % (Manual) Nucleated RBC % Seg Neutrophils # Seg Neutrophils # Man Lymphocytes # (Manual) Monocytes # (Manual) Eosinophils # (Manual) PT INR APTT Fibrinogen POC ABG pH ABG pH POC ABG pCO2 POC ABG pO2 ABG pO2 ABG HCO3 ABG O2 Saturation ABG Base Excess ABG Hemoglobin Oxyhemoglobin Sodium Potassium Chloride Carbon Dioxide BUN Creatinine Glucose POC Glucose 116 H 148 H Uric Acid Calcium Phosphorus Magnesium Iron TIBC AST ALT Total Creatine Kinase CK-MB (CK-2) Troponin T NT-Pro-B Natriuret Pep Total Protein Albumin Triglycerides HDL Cholesterol Folate Urine WBC (Auto) Urine Creatinine 292.8 H Urine Total Protein 269 H Vancomycin Trough 05/08/19 05/08/19 05/08/19 05:32 11:28 13:48 WBC RBC Hgb Hct MCV MCH MCHC RDW Plt Count Lymph % (Auto) [place] % (Auto) Eos % (Auto) Lymph # [place] # Eos # Seg Neutrophils % Seg Neuts % (Manual) Lymphocytes % (Manual) Monocytes % (Manual) Eosinophils % (Manual) Nucleated RBC % Seg Neutrophils # Seg Neutrophils # Man Lymphocytes # (Manual) Monocytes # (Manual) Eosinophils # (Manual) PT INR APTT Fibrinogen POC ABG pH ABG pH POC ABG pCO2 45.4 H POC ABG pO2 64 L ABG pO2 ABG HCO3 ABG O2 Saturation ABG Base Excess ABG Hemoglobin Oxyhemoglobin Sodium Potassium Chloride Carbon Dioxide BUN 73 H Creatinine 2.7 H Glucose 127 H POC Glucose 107 H Uric Acid Calcium 7.6 L Phosphorus Magnesium Iron TIBC AST ALT Total Creatine Kinase CK-MB (CK-2) Troponin T NT-Pro-B Natriuret Pep Total Protein Albumin Triglycerides HDL Cholesterol Folate Urine WBC (Auto) Urine Creatinine Urine Total Protein Vancomycin Trough 05/08/19 05/09/19 05/09/19 17:48 04:50 04:53 WBC RBC 3.07 L Hgb 8.5 L D Hct 29.3 L D MCV 96 H MCH MCHC 29 L RDW 18.1 H Plt Count Lymph % (Auto) [place] % (Auto) Eos % (Auto) Lymph # [place] # Eos # Seg Neutrophils % Seg Neuts % (Manual) Lymphocytes % (Manual) Monocytes % (Manual) Eosinophils % (Manual) Nucleated RBC % Seg Neutrophils # Seg Neutrophils # Man Lymphocytes # (Manual) Monocytes # (Manual) Eosinophils # (Manual) PT INR APTT Fibrinogen POC ABG pH 7.316 L ABG pH POC ABG pCO2 66.0 H POC ABG pO2 69 L ABG pO2 ABG HCO3 ABG O2 Saturation ABG Base Excess ABG Hemoglobin Oxyhemoglobin Sodium Potassium Chloride Carbon Dioxide BUN Creatinine Glucose POC Glucose 155 H Uric Acid Calcium Phosphorus Magnesium Iron TIBC AST ALT Total Creatine Kinase CK-MB (CK-2) Troponin T NT-Pro-B Natriuret Pep Total Protein Albumin Triglycerides HDL Cholesterol Folate Urine WBC (Auto) Urine Creatinine Urine Total Protein Vancomycin Trough 05/09/19 05/09/19 05/09/19 05:46 07:24 12:10 WBC RBC Hgb Hct MCV MCH MCHC RDW Plt Count Lymph % (Auto) [place] % (Auto) Eos % (Auto) Lymph # [place] # Eos # Seg Neutrophils % Seg Neuts % (Manual) Lymphocytes % (Manual) Monocytes % (Manual) Eosinophils % (Manual) Nucleated RBC % Seg Neutrophils # Seg Neutrophils # Man Lymphocytes # (Manual) Monocytes # (Manual) Eosinophils # (Manual) PT INR APTT Fibrinogen POC ABG pH ABG pH POC ABG pCO2 POC ABG pO2 ABG pO2 ABG HCO3 ABG O2 Saturation ABG Base Excess ABG Hemoglobin Oxyhemoglobin Sodium Potassium Chloride Carbon Dioxide BUN 73 H Creatinine 2.4 H Glucose 153 H POC Glucose 123 H 148 H Uric Acid Calcium 8.2 L Phosphorus Magnesium Iron TIBC AST 45 H ALT Total Creatine Kinase CK-MB (CK-2) Troponin T NT-Pro-B Natriuret Pep Total Protein 6.0 L Albumin 1.9 L Triglycerides HDL Cholesterol Folate Urine WBC (Auto) Urine Creatinine Urine Total Protein Vancomycin Trough 05/09/19 05/09/19 05/10/19 18:23 23:26 04:52 WBC RBC Hgb Hct MCV MCH MCHC RDW Plt Count Lymph % (Auto) [place] % (Auto) Eos % (Auto) Lymph # [place] # Eos # Seg Neutrophils % Seg Neuts % (Manual) Lymphocytes % (Manual) Monocytes % (Manual) Eosinophils % (Manual) Nucleated RBC % Seg Neutrophils # Seg Neutrophils # Man Lymphocytes # (Manual) Monocytes # (Manual) Eosinophils # (Manual) PT INR APTT Fibrinogen POC ABG pH 7.305 L ABG pH POC ABG pCO2 62.6 H POC ABG pO2 ABG pO2 ABG HCO3 ABG O2 Saturation ABG Base Excess ABG Hemoglobin Oxyhemoglobin Sodium Potassium Chloride Carbon Dioxide BUN Creatinine Glucose POC Glucose 147 H 121 H Uric Acid Calcium Phosphorus Magnesium Iron TIBC AST ALT Total Creatine Kinase CK-MB (CK-2) Troponin T NT-Pro-B Natriuret Pep Total Protein Albumin Triglycerides HDL Cholesterol Folate Urine WBC (Auto) Urine Creatinine Urine Total Protein Vancomycin Trough 05/10/19 05/10/19 05/10/19 05:00 05:00 05:50 WBC RBC Hgb 10.3 L Hct 33.7 L MCV MCH 27 L MCHC 31 L RDW 17.0 H Plt Count Lymph % (Auto) [place] % (Auto) Eos % (Auto) Lymph # [place] # Eos # Seg Neutrophils % Seg Neuts % (Manual) Lymphocytes % (Manual) Monocytes % (Manual) Eosinophils % (Manual) Nucleated RBC % Seg Neutrophils # Seg Neutrophils # Man Lymphocytes # (Manual) Monocytes # (Manual) Eosinophils # (Manual) PT INR APTT Fibrinogen POC ABG pH ABG pH POC ABG pCO2 POC ABG pO2 ABG pO2 ABG HCO3 ABG O2 Saturation ABG Base Excess ABG Hemoglobin Oxyhemoglobin Sodium 147 H Potassium Chloride Carbon Dioxide BUN 70 H Creatinine 2.6 H Glucose 155 H POC Glucose 158 H Uric Acid Calcium 8.2 L Phosphorus Magnesium Iron TIBC AST ALT Total Creatine Kinase CK-MB (CK-2) Troponin T NT-Pro-B Natriuret Pep Total Protein 6.1 L Albumin 2.5 L Triglycerides HDL Cholesterol Folate Urine WBC (Auto) Urine Creatinine Urine Total Protein Vancomycin Trough 05/10/19 05/11/19 05/11/19 13:14 07:26 11:40 WBC RBC Hgb Hct MCV MCH MCHC RDW Plt Count Lymph % (Auto) [place] % (Auto) Eos % (Auto) Lymph # [place] # Eos # Seg Neutrophils % Seg Neuts % (Manual) Lymphocytes % (Manual) Monocytes % (Manual) Eosinophils % (Manual) Nucleated RBC % Seg Neutrophils # Seg Neutrophils # Man Lymphocytes # (Manual) Monocytes # (Manual) Eosinophils # (Manual) PT INR APTT Fibrinogen POC ABG pH ABG pH POC ABG pCO2 48.0 H POC ABG pO2 58 L ABG pO2 ABG HCO3 ABG O2 Saturation ABG Base Excess ABG Hemoglobin Oxyhemoglobin Sodium 147 H Potassium Chloride 107.2 H Carbon Dioxide BUN 67 H Creatinine 2.6 H Glucose 121 H POC Glucose 159 H Uric Acid Calcium Phosphorus Magnesium Iron TIBC AST ALT Total Creatine Kinase CK-MB (CK-2) Troponin T NT-Pro-B Natriuret Pep Total Protein Albumin Triglycerides HDL Cholesterol Folate Urine WBC (Auto) Urine Creatinine Urine Total Protein Vancomycin Trough 05/11/19 05/11/19 05/12/19 18:13 23:46 04:40 WBC RBC Hgb Hct MCV MCH MCHC RDW Plt Count Lymph % (Auto) [place] % (Auto) Eos % (Auto) Lymph # [place] # Eos # Seg Neutrophils % Seg Neuts % (Manual) Lymphocytes % (Manual) Monocytes % (Manual) Eosinophils % (Manual) Nucleated RBC % Seg Neutrophils # Seg Neutrophils # Man Lymphocytes # (Manual) Monocytes # (Manual) Eosinophils # (Manual) PT INR APTT Fibrinogen POC ABG pH ABG pH 7.264 L POC ABG pCO2 POC ABG pO2 ABG pO2 66.8 L ABG HCO3 31.0 H ABG O2 Saturation 92.0 L ABG Base Excess ABG Hemoglobin 10.3 L Oxyhemoglobin 90.1 L Sodium Potassium Chloride Carbon Dioxide BUN Creatinine Glucose POC Glucose 120 H 121 H Uric Acid Calcium Phosphorus Magnesium Iron TIBC AST ALT Total Creatine Kinase CK-MB (CK-2) Troponin T NT-Pro-B Natriuret Pep Total Protein Albumin Triglycerides HDL Cholesterol Folate Urine WBC (Auto) Urine Creatinine Urine Total Protein Vancomycin Trough 05/12/19 05/12/19 05/12/19 04:45 04:45 11:14 WBC RBC Hgb 10.2 L Hct 32.4 L MCV MCH MCHC 31 L RDW 17.2 H Plt Count Lymph % (Auto) [place] % (Auto) Eos % (Auto) Lymph # [place] # Eos # Seg Neutrophils % Seg Neuts % (Manual) Lymphocytes % (Manual) Monocytes % (Manual) Eosinophils % (Manual) Nucleated RBC % Seg Neutrophils # Seg Neutrophils # Man Lymphocytes # (Manual) Monocytes # (Manual) Eosinophils # (Manual) PT INR APTT Fibrinogen POC ABG pH 7.284 L ABG pH POC ABG pCO2 67.8 H POC ABG pO2 ABG pO2 ABG HCO3 ABG O2 Saturation ABG Base Excess ABG Hemoglobin Oxyhemoglobin Sodium Potassium Chloride Carbon Dioxide BUN 63 H Creatinine 2.4 H Glucose 110 H POC Glucose Uric Acid Calcium Phosphorus Magnesium Iron TIBC AST ALT Total Creatine Kinase CK-MB (CK-2) Troponin T NT-Pro-B Natriuret Pep Total Protein Albumin Triglycerides HDL Cholesterol Folate Urine WBC (Auto) Urine Creatinine Urine Total Protein Vancomycin Trough 05/12/19 05/12/19 05/13/19 11:44 23:11 04:30 WBC RBC Hgb Hct MCV MCH MCHC RDW Plt Count Lymph % (Auto) [place] % (Auto) Eos % (Auto) Lymph # [place] # Eos # Seg Neutrophils % Seg Neuts % (Manual) Lymphocytes % (Manual) Monocytes % (Manual) Eosinophils % (Manual) Nucleated RBC % Seg Neutrophils # Seg Neutrophils # Man Lymphocytes # (Manual) Monocytes # (Manual) Eosinophils # (Manual) PT INR APTT Fibrinogen POC ABG pH ABG pH 7.288 L POC ABG pCO2 POC ABG pO2 ABG pO2 109.7 H ABG HCO3 30.9 H ABG O2 Saturation ABG Base Excess 3.2 H ABG Hemoglobin 9.6 L Oxyhemoglobin Sodium Potassium Chloride Carbon Dioxide BUN Creatinine Glucose POC Glucose 126 H 147 H Uric Acid Calcium Phosphorus Magnesium Iron TIBC AST ALT Total Creatine Kinase CK-MB (CK-2) Troponin T NT-Pro-B Natriuret Pep Total Protein Albumin Triglycerides HDL Cholesterol Folate Urine WBC (Auto) Urine Creatinine Urine Total Protein Vancomycin Trough 05/13/19 05/13/19 05/14/19 06:27 11:58 04:00 WBC RBC 3.16 L Hgb 9.3 L Hct 27.9 L MCV MCH MCHC RDW 17.1 H Plt Count Lymph % (Auto) [place] % (Auto) Eos % (Auto) Lymph # [place] # Eos # Seg Neutrophils % Seg Neuts % (Manual) Lymphocytes % (Manual) Monocytes % (Manual) Eosinophils % (Manual) Nucleated RBC % Seg Neutrophils # Seg Neutrophils # Man Lymphocytes # (Manual) Monocytes # (Manual) Eosinophils # (Manual) PT INR APTT Fibrinogen POC ABG pH ABG pH POC ABG pCO2 POC ABG pO2 ABG pO2 ABG HCO3 ABG O2 Saturation ABG Base Excess ABG Hemoglobin Oxyhemoglobin Sodium Potassium Chloride Carbon Dioxide BUN Creatinine Glucose POC Glucose 113 H 130 H Uric Acid Calcium Phosphorus Magnesium Iron TIBC AST ALT Total Creatine Kinase CK-MB (CK-2) Troponin T NT-Pro-B Natriuret Pep Total Protein Albumin Triglycerides HDL Cholesterol Folate Urine WBC (Auto) Urine Creatinine Urine Total Protein Vancomycin Trough 05/14/19 05/14/19 05/14/19 04:00 04:34 05:32 WBC RBC Hgb Hct MCV MCH MCHC RDW Plt Count Lymph % (Auto) [place] % (Auto) Eos % (Auto) Lymph # [place] # Eos # Seg Neutrophils % Seg Neuts % (Manual) Lymphocytes % (Manual) Monocytes % (Manual) Eosinophils % (Manual) Nucleated RBC % Seg Neutrophils # Seg Neutrophils # Man Lymphocytes # (Manual) Monocytes # (Manual) Eosinophils # (Manual) PT INR APTT Fibrinogen POC ABG pH 7.328 L ABG pH POC ABG pCO2 61.7 H POC ABG pO2 ABG pO2 ABG HCO3 ABG O2 Saturation ABG Base Excess ABG Hemoglobin Oxyhemoglobin Sodium 135 L D Potassium Chloride Carbon Dioxide BUN 57 H Creatinine 2.2 H Glucose 115 H POC Glucose 115 H Uric Acid Calcium 8.1 L Phosphorus Magnesium Iron TIBC AST ALT Total Creatine Kinase CK-MB (CK-2) Troponin T NT-Pro-B Natriuret Pep Total Protein Albumin Triglycerides HDL Cholesterol Folate Urine WBC (Auto) Urine Creatinine Urine Total Protein Vancomycin Trough 05/14/19 05/15/19 05/15/19 12:11 05:10 05:24 WBC RBC Hgb Hct MCV MCH MCHC RDW Plt Count Lymph % (Auto) [place] % (Auto) Eos % (Auto) Lymph # [place] # Eos # Seg Neutrophils % Seg Neuts % (Manual) Lymphocytes % (Manual) Monocytes % (Manual) Eosinophils % (Manual) Nucleated RBC % Seg Neutrophils # Seg Neutrophils # Man Lymphocytes # (Manual) Monocytes # (Manual) Eosinophils # (Manual) PT INR APTT Fibrinogen POC ABG pH ABG pH 7.342 L POC ABG pCO2 POC ABG pO2 ABG pO2 79.1 L ABG HCO3 28.2 H ABG O2 Saturation ABG Base Excess ABG Hemoglobin 7.0 L Oxyhemoglobin 94.4 L Sodium Potassium Chloride Carbon Dioxide BUN Creatinine Glucose POC Glucose 110 H 116 H Uric Acid Calcium Phosphorus Magnesium Iron TIBC AST ALT Total Creatine Kinase CK-MB (CK-2) Troponin T NT-Pro-B Natriuret Pep Total Protein Albumin Triglycerides HDL Cholesterol Folate Urine WBC (Auto) Urine Creatinine Urine Total Protein Vancomycin Trough 05/15/19 05/15/19 05/16/19 09:00 18:12 04:50 WBC RBC Hgb Hct MCV MCH MCHC RDW Plt Count Lymph % (Auto) [place] % (Auto) Eos % (Auto) Lymph # [place] # Eos # Seg Neutrophils % Seg Neuts % (Manual) Lymphocytes % (Manual) Monocytes % (Manual) Eosinophils % (Manual) Nucleated RBC % Seg Neutrophils # Seg Neutrophils # Man Lymphocytes # (Manual) Monocytes # (Manual) Eosinophils # (Manual) PT INR APTT Fibrinogen POC ABG pH ABG pH 7.250 L POC ABG pCO2 POC ABG pO2 ABG pO2 76.4 L ABG HCO3 ABG O2 Saturation 94.6 L ABG Base Excess -3.1 L ABG Hemoglobin 9.7 L Oxyhemoglobin 92.4 L Sodium Potassium Chloride Carbon Dioxide BUN Creatinine Glucose POC Glucose 110 H Uric Acid Calcium Phosphorus Magnesium Iron TIBC AST ALT Total Creatine Kinase CK-MB (CK-2) Troponin T NT-Pro-B Natriuret Pep Total Protein Albumin Triglycerides HDL Cholesterol Folate Urine WBC (Auto) Urine Creatinine Urine Total Protein Vancomycin Trough 20.5 H 05/16/19 05/16/19 05/17/19 05:50 05:50 04:20 WBC RBC 3.36 L 3.44 L Hgb 9.4 L 9.3 L Hct 29.1 L 29.7 L MCV MCH 27 L MCHC 31 L RDW 17.6 H 17.6 H Plt Count Lymph % (Auto) [place] % (Auto) Eos % (Auto) Lymph # [place] # Eos # Seg Neutrophils % Seg Neuts % (Manual) 77.0 H Lymphocytes % (Manual) 5.0 L Monocytes % (Manual) Eosinophils % (Manual) 10.0 H Nucleated RBC % Seg Neutrophils # Seg Neutrophils # Man Lymphocytes # (Manual) 0.5 L Monocytes # (Manual) Eosinophils # (Manual) 0.9 H PT INR APTT Fibrinogen POC ABG pH ABG pH POC ABG pCO2 POC ABG pO2 ABG pO2 ABG HCO3 ABG O2 Saturation ABG Base Excess ABG Hemoglobin Oxyhemoglobin Sodium Potassium Chloride Carbon Dioxide BUN 83 H Creatinine 4.4 H D Glucose 118 H POC Glucose Uric Acid Calcium Phosphorus Magnesium Iron TIBC AST ALT Total Creatine Kinase CK-MB (CK-2) Troponin T NT-Pro-B Natriuret Pep Total Protein Albumin Triglycerides HDL Cholesterol Folate Urine WBC (Auto) Urine Creatinine Urine Total Protein Vancomycin Trough 05/17/19 05/17/19 05/18/19 04:30 Unknown 01:50 WBC RBC 3.49 L Hgb 9.4 L Hct 30.0 L MCV MCH 27 L MCHC 31 L RDW 17.8 H Plt Count Lymph % (Auto) 7.9 L [place] % (Auto) 15.4 H Eos % (Auto) 6.3 H Lymph # 0.7 L [place] # 1.4 H Eos # 0.6 H Seg Neutrophils % 70.2 H Seg Neuts % (Manual) Lymphocytes % (Manual) Monocytes % (Manual) Eosinophils % (Manual) Nucleated RBC % Seg Neutrophils # Seg Neutrophils # Man Lymphocytes # (Manual) Monocytes # (Manual) Eosinophils # (Manual) PT INR APTT Fibrinogen POC ABG pH ABG pH 7.272 L POC ABG pCO2 POC ABG pO2 ABG pO2 75.7 L ABG HCO3 ABG O2 Saturation 93.8 L ABG Base Excess -3.0 L ABG Hemoglobin 7.8 L Oxyhemoglobin 91.6 L Sodium Potassium 5.2 H Chloride Carbon Dioxide BUN 96 H Creatinine 5.7 H Glucose 112 H POC Glucose Uric Acid Calcium Phosphorus Magnesium Iron TIBC AST ALT Total Creatine Kinase CK-MB (CK-2) Troponin T NT-Pro-B Natriuret Pep Total Protein Albumin Triglycerides 173 H HDL Cholesterol Folate Urine WBC (Auto) Urine Creatinine Urine Total Protein Vancomycin Trough 05/18/19 05/18/19 05/18/19 01:50 04:41 05:24 WBC RBC Hgb Hct MCV MCH MCHC RDW Plt Count Lymph % (Auto) [place] % (Auto) Eos % (Auto) Lymph # [place] # Eos # Seg Neutrophils % Seg Neuts % (Manual) Lymphocytes % (Manual) Monocytes % (Manual) Eosinophils % (Manual) Nucleated RBC % Seg Neutrophils # Seg Neutrophils # Man Lymphocytes # (Manual) Monocytes # (Manual) Eosinophils # (Manual) PT INR APTT Fibrinogen POC ABG pH 7.260 L ABG pH POC ABG pCO2 54.9 H POC ABG pO2 ABG pO2 ABG HCO3 ABG O2 Saturation ABG Base Excess ABG Hemoglobin Oxyhemoglobin Sodium Potassium 5.6 H Chloride Carbon Dioxide BUN 104 H Creatinine 6.6 H Glucose 107 H POC Glucose 106 H Uric Acid Calcium Phosphorus Magnesium Iron TIBC AST ALT Total Creatine Kinase CK-MB (CK-2) Troponin T NT-Pro-B Natriuret Pep Total Protein Albumin Triglycerides HDL Cholesterol Folate Urine WBC (Auto) Urine Creatinine Urine Total Protein Vancomycin Trough 05/18/19 05/18/19 05/19/19 11:34 23:26 04:06 WBC RBC 3.22 L Hgb 8.8 L Hct 27.3 L MCV MCH 27 L MCHC RDW 17.5 H Plt Count Lymph % (Auto) [place] % (Auto) Eos % (Auto) Lymph # [place] # Eos # Seg Neutrophils % Seg Neuts % (Manual) 74.0 H Lymphocytes % (Manual) 4.0 L Monocytes % (Manual) 11.0 H Eosinophils % (Manual) 7.0 H Nucleated RBC % 1.0 H Seg Neutrophils # Seg Neutrophils # Man Lymphocytes # (Manual) 0.3 L Monocytes # (Manual) 0.9 H Eosinophils # (Manual) 0.6 H PT INR APTT Fibrinogen POC ABG pH ABG pH POC ABG pCO2 POC ABG pO2 ABG pO2 ABG HCO3 ABG O2 Saturation ABG Base Excess ABG Hemoglobin Oxyhemoglobin Sodium Potassium Chloride Carbon Dioxide BUN Creatinine Glucose POC Glucose 152 H 112 H Uric Acid Calcium Phosphorus Magnesium Iron TIBC AST ALT Total Creatine Kinase CK-MB (CK-2) Troponin T NT-Pro-B Natriuret Pep Total Protein Albumin Triglycerides HDL Cholesterol Folate Urine WBC (Auto) Urine Creatinine Urine Total Protein Vancomycin Trough 05/19/19 05/19/19 05/20/19 04:06 06:00 04:00 WBC RBC 3.40 L Hgb 9.2 L Hct 28.6 L MCV MCH 27 L MCHC RDW 17.6 H Plt Count Lymph % (Auto) [place] % (Auto) Eos % (Auto) Lymph # [place] # Eos # Seg Neutrophils % Seg Neuts % (Manual) Lymphocytes % (Manual) 11.0 L Monocytes % (Manual) Eosinophils % (Manual) 14.0 H Nucleated RBC % Seg Neutrophils # Seg Neutrophils # Man Lymphocytes # (Manual) 1.1 L Monocytes # (Manual) Eosinophils # (Manual) 1.4 H PT INR APTT Fibrinogen POC ABG pH ABG pH 7.315 L POC ABG pCO2 POC ABG pO2 ABG pO2 ABG HCO3 ABG O2 Saturation ABG Base Excess ABG Hemoglobin 6.7 L Oxyhemoglobin 94.1 L Sodium Potassium 5.2 H Chloride Carbon Dioxide 21 L BUN 110 H Creatinine 7.2 H Glucose POC Glucose Uric Acid Calcium 8.3 L Phosphorus Magnesium Iron TIBC AST ALT Total Creatine Kinase CK-MB (CK-2) Troponin T NT-Pro-B Natriuret Pep Total Protein Albumin Triglycerides HDL Cholesterol Folate Urine WBC (Auto) Urine Creatinine Urine Total Protein Vancomycin Trough 05/20/19 05/20/19 05/20/19 04:00 05:48 12:00 WBC RBC Hgb Hct MCV MCH MCHC RDW Plt Count Lymph % (Auto) [place] % (Auto) Eos % (Auto) Lymph # [place] # Eos # Seg Neutrophils % Seg Neuts % (Manual) Lymphocytes % (Manual) Monocytes % (Manual) Eosinophils % (Manual) Nucleated RBC % Seg Neutrophils # Seg Neutrophils # Man Lymphocytes # (Manual) Monocytes # (Manual) Eosinophils # (Manual) PT INR APTT Fibrinogen POC ABG pH ABG pH 7.281 L POC ABG pCO2 POC ABG pO2 ABG pO2 78.7 L ABG HCO3 ABG O2 Saturation 94.5 L ABG Base Excess -3.0 L ABG Hemoglobin 9.9 L Oxyhemoglobin 92.5 L Sodium 136 L Potassium 5.7 H Chloride 96.3 L Carbon Dioxide BUN 125 H Creatinine 8.3 H Glucose 106 H POC Glucose Uric Acid Calcium Phosphorus Magnesium Iron TIBC AST ALT Total Creatine Kinase CK-MB (CK-2) Troponin T NT-Pro-B Natriuret Pep Total Protein Albumin Triglycerides HDL Cholesterol Folate Urine WBC (Auto) 26.0 H Urine Creatinine Urine Total Protein Vancomycin Trough 05/21/19 05/21/19 05/21/19 04:33 05:20 Unknown WBC RBC 3.38 L Hgb 9.1 L Hct 28.5 L MCV MCH 27 L MCHC RDW 17.4 H Plt Count Lymph % (Auto) [place] % (Auto) Eos % (Auto) Lymph # [place] # Eos # Seg Neutrophils % Seg Neuts % (Manual) 71.0 H Lymphocytes % (Manual) 1.0 L Monocytes % (Manual) 11.0 H Eosinophils % (Manual) 6.0 H Nucleated RBC % Seg Neutrophils # Seg Neutrophils # Man Lymphocytes # (Manual) 0.1 L Monocytes # (Manual) 1.0 H Eosinophils # (Manual) 0.6 H PT INR APTT Fibrinogen POC ABG pH 7.315 L ABG pH POC ABG pCO2 57.8 H POC ABG pO2 68 L ABG pO2 ABG HCO3 ABG O2 Saturation ABG Base Excess ABG Hemoglobin Oxyhemoglobin Sodium Potassium Chloride 96.3 L Carbon Dioxide BUN 102 H Creatinine 7.0 H Glucose 103 H POC Glucose Uric Acid Calcium Phosphorus Magnesium Iron TIBC AST ALT Total Creatine Kinase CK-MB (CK-2) Troponin T NT-Pro-B Natriuret Pep Total Protein Albumin Triglycerides HDL Cholesterol Folate Urine WBC (Auto) Urine Creatinine Urine Total Protein Vancomycin Trough 05/22/19 05/22/19 05/22/19 03:54 06:25 06:25 WBC RBC 3.22 L Hgb 8.6 L Hct 27.0 L MCV MCH 27 L MCHC RDW 17.5 H Plt Count Lymph % (Auto) [place] % (Auto) 16.2 H Eos % (Auto) 10.8 H Lymph # [place] # 1.3 H Eos # 0.9 H Seg Neutrophils % Seg Neuts % (Manual) Lymphocytes % (Manual) 10.0 L Monocytes % (Manual) 13.0 H Eosinophils % (Manual) 8.0 H Nucleated RBC % Seg Neutrophils # Seg Neutrophils # Man Lymphocytes # (Manual) 0.9 L Monocytes # (Manual) 1.1 H Eosinophils # (Manual) 0.7 H PT INR APTT Fibrinogen POC ABG pH 7.313 L ABG pH POC ABG pCO2 55.0 H POC ABG pO2 ABG pO2 ABG HCO3 ABG O2 Saturation ABG Base Excess ABG Hemoglobin Oxyhemoglobin Sodium 135 L Potassium Chloride 94.3 L Carbon Dioxide BUN 117 H Creatinine 7.8 H Glucose POC Glucose Uric Acid Calcium 8.2 L Phosphorus Magnesium Iron TIBC AST ALT Total Creatine Kinase CK-MB (CK-2) Troponin T NT-Pro-B Natriuret Pep Total Protein Albumin Triglycerides HDL Cholesterol Folate Urine WBC (Auto) Urine Creatinine Urine Total Protein Vancomycin Trough 05/23/19 05/24/19 05/24/19 05:21 05:00 05:00 WBC RBC 3.18 L Hgb 8.5 L Hct 26.7 L MCV MCH 27 L MCHC RDW 17.9 H Plt Count Lymph % (Auto) [place] % (Auto) Eos % (Auto) Lymph # [place] # Eos # Seg Neutrophils % Seg Neuts % (Manual) Lymphocytes % (Manual) Monocytes % (Manual) Eosinophils % (Manual) Nucleated RBC % Seg Neutrophils # Seg Neutrophils # Man Lymphocytes # (Manual) Monocytes # (Manual) Eosinophils # (Manual) PT INR APTT Fibrinogen POC ABG pH ABG pH POC ABG pCO2 49.7 H POC ABG pO2 73 L ABG pO2 ABG HCO3 ABG O2 Saturation ABG Base Excess ABG Hemoglobin Oxyhemoglobin Sodium Potassium Chloride 95.7 L Carbon Dioxide BUN 97 H Creatinine 6.5 H Glucose POC Glucose Uric Acid Calcium 8.0 L Phosphorus Magnesium Iron TIBC AST ALT Total Creatine Kinase CK-MB (CK-2) Troponin T NT-Pro-B Natriuret Pep Total Protein Albumin Triglycerides HDL Cholesterol Folate Urine WBC (Auto) Urine Creatinine Urine Total Protein Vancomycin Trough 05/24/19 05/25/19 05/25/19 06:17 04:22 15:45 WBC RBC 2.98 L Hgb 8.1 L Hct 24.9 L MCV MCH 27 L MCHC RDW 17.8 H Plt Count Lymph % (Auto) [place] % (Auto) Eos % (Auto) Lymph # [place] # Eos # Seg Neutrophils % Seg Neuts % (Manual) Lymphocytes % (Manual) Monocytes % (Manual) Eosinophils % (Manual) Nucleated RBC % Seg Neutrophils # Seg Neutrophils # Man Lymphocytes # (Manual) Monocytes # (Manual) Eosinophils # (Manual) PT INR APTT Fibrinogen POC ABG pH 7.330 L 7.313 L ABG pH POC ABG pCO2 52.5 H 51.1 H POC ABG pO2 77 L ABG pO2 ABG HCO3 ABG O2 Saturation ABG Base Excess ABG Hemoglobin Oxyhemoglobin Sodium Potassium Chloride Carbon Dioxide BUN Creatinine Glucose POC Glucose Uric Acid Calcium Phosphorus Magnesium Iron TIBC AST ALT Total Creatine Kinase CK-MB (CK-2) Troponin T NT-Pro-B Natriuret Pep Total Protein Albumin Triglycerides HDL Cholesterol Folate Urine WBC (Auto) Urine Creatinine Urine Total Protein Vancomycin Trough 05/25/19 05/26/19 05/26/19 15:45 04:13 05:00 WBC RBC 3.10 L Hgb 8.4 L Hct 26.0 L MCV MCH 27 L MCHC RDW 17.4 H Plt Count Lymph % (Auto) [place] % (Auto) Eos % (Auto) Lymph # [place] # Eos # Seg Neutrophils % Seg Neuts % (Manual) Lymphocytes % (Manual) Monocytes % (Manual) Eosinophils % (Manual) Nucleated RBC % Seg Neutrophils # Seg Neutrophils # Man Lymphocytes # (Manual) Monocytes # (Manual) Eosinophils # (Manual) PT INR APTT Fibrinogen POC ABG pH 7.295 L ABG pH POC ABG pCO2 56.5 H POC ABG pO2 63 L ABG pO2 ABG HCO3 ABG O2 Saturation ABG Base Excess ABG Hemoglobin Oxyhemoglobin Sodium 136 L Potassium Chloride 96.8 L Carbon Dioxide BUN 83 H Creatinine 5.9 H Glucose POC Glucose Uric Acid Calcium 7.6 L Phosphorus Magnesium Iron TIBC AST ALT Total Creatine Kinase CK-MB (CK-2) Troponin T NT-Pro-B Natriuret Pep Total Protein Albumin Triglycerides HDL Cholesterol Folate Urine WBC (Auto) Urine Creatinine Urine Total Protein Vancomycin Trough 05/26/19 05/27/19 05/28/19 05:00 04:48 04:47 WBC RBC Hgb Hct MCV MCH MCHC RDW Plt Count Lymph % (Auto) [place] % (Auto) Eos % (Auto) Lymph # [place] # Eos # Seg Neutrophils % Seg Neuts % (Manual) Lymphocytes % (Manual) Monocytes % (Manual) Eosinophils % (Manual) Nucleated RBC % Seg Neutrophils # Seg Neutrophils # Man Lymphocytes # (Manual) Monocytes # (Manual) Eosinophils # (Manual) PT INR APTT Fibrinogen POC ABG pH 7.323 L ABG pH 7.284 L POC ABG pCO2 56.2 H POC ABG pO2 ABG pO2 71.6 L ABG HCO3 ABG O2 Saturation 92.0 L ABG Base Excess ABG Hemoglobin 7.7 L Oxyhemoglobin 89.9 L Sodium 136 L Potassium Chloride 95.3 L Carbon Dioxide BUN 96 H Creatinine 6.5 H Glucose 108 H POC Glucose Uric Acid Calcium 7.6 L Phosphorus Magnesium Iron TIBC AST ALT Total Creatine Kinase CK-MB (CK-2) Troponin T NT-Pro-B Natriuret Pep Total Protein Albumin Triglycerides HDL Cholesterol Folate Urine WBC (Auto) Urine Creatinine Urine Total Protein Vancomycin Trough 05/28/19 05/29/19 05/29/19 12:30 12:47 23:44 WBC RBC Hgb Hct MCV MCH MCHC RDW Plt Count Lymph % (Auto) [place] % (Auto) Eos % (Auto) Lymph # [place] # Eos # Seg Neutrophils % Seg Neuts % (Manual) Lymphocytes % (Manual) Monocytes % (Manual) Eosinophils % (Manual) Nucleated RBC % Seg Neutrophils # Seg Neutrophils # Man Lymphocytes # (Manual) Monocytes # (Manual) Eosinophils # (Manual) PT INR APTT Fibrinogen POC ABG pH ABG pH POC ABG pCO2 POC ABG pO2 ABG pO2 ABG HCO3 ABG O2 Saturation ABG Base Excess ABG Hemoglobin Oxyhemoglobin Sodium 135 L Potassium Chloride 95.3 L Carbon Dioxide BUN 82 H Creatinine 6.0 H Glucose POC Glucose 136 H 159 H Uric Acid Calcium 7.5 L Phosphorus Magnesium Iron TIBC AST ALT Total Creatine Kinase CK-MB (CK-2) Troponin T NT-Pro-B Natriuret Pep Total Protein Albumin Triglycerides HDL Cholesterol Folate Urine WBC (Auto) Urine Creatinine Urine Total Protein Vancomycin Trough 05/30/19 05/30/19 05/30/19 04:30 05:38 12:00 WBC RBC 3.01 L Hgb 8.2 L Hct 25.3 L MCV MCH 27 L MCHC RDW 17.5 H Plt Count Lymph % (Auto) [place] % (Auto) Eos % (Auto) Lymph # [place] # Eos # Seg Neutrophils % Seg Neuts % (Manual) 80.0 H Lymphocytes % (Manual) 10.0 L Monocytes % (Manual) Eosinophils % (Manual) Nucleated RBC % Seg Neutrophils # Seg Neutrophils # Man 8.0 H Lymphocytes # (Manual) 1.0 L Monocytes # (Manual) Eosinophils # (Manual) PT INR APTT Fibrinogen POC ABG pH ABG pH POC ABG pCO2 POC ABG pO2 73 L ABG pO2 ABG HCO3 ABG O2 Saturation ABG Base Excess ABG Hemoglobin Oxyhemoglobin Sodium Potassium Chloride Carbon Dioxide BUN Creatinine Glucose POC Glucose 166 H Uric Acid Calcium Phosphorus Magnesium Iron TIBC AST ALT Total Creatine Kinase CK-MB (CK-2) Troponin T NT-Pro-B Natriuret Pep Total Protein Albumin Triglycerides HDL Cholesterol Folate Urine WBC (Auto) Urine Creatinine Urine Total Protein Vancomycin Trough 05/30/19 05/31/19 05/31/19 23:45 04:07 13:04 WBC 14.3 H RBC 2.88 L Hgb 7.7 L Hct 23.9 L MCV 83 L MCH 27 L MCHC RDW 17.8 H Plt Count Lymph % (Auto) [place] % (Auto) Eos % (Auto) Lymph # [place] # Eos # Seg Neutrophils % Seg Neuts % (Manual) 83.0 H Lymphocytes % (Manual) 11.0 L Monocytes % (Manual) Eosinophils % (Manual) Nucleated RBC % Seg Neutrophils # Seg Neutrophils # Man 11.9 H Lymphocytes # (Manual) Monocytes # (Manual) 0.9 H Eosinophils # (Manual) PT INR APTT Fibrinogen POC ABG pH ABG pH POC ABG pCO2 47.4 H POC ABG pO2 ABG pO2 ABG HCO3 ABG O2 Saturation ABG Base Excess ABG Hemoglobin Oxyhemoglobin Sodium Potassium Chloride Carbon Dioxide BUN Creatinine Glucose POC Glucose 209 H Uric Acid Calcium Phosphorus Magnesium Iron TIBC AST ALT Total Creatine Kinase CK-MB (CK-2) Troponin T NT-Pro-B Natriuret Pep Total Protein Albumin Triglycerides HDL Cholesterol Folate Urine WBC (Auto) Urine Creatinine Urine Total Protein Vancomycin Trough 05/31/19 05/31/19 06/01/19 13:04 16:42 00:15 WBC RBC Hgb Hct MCV MCH MCHC RDW Plt Count Lymph % (Auto) [place] % (Auto) Eos % (Auto) Lymph # [place] # Eos # Seg Neutrophils % Seg Neuts % (Manual) Lymphocytes % (Manual) Monocytes % (Manual) Eosinophils % (Manual) Nucleated RBC % Seg Neutrophils # Seg Neutrophils # Man Lymphocytes # (Manual) Monocytes # (Manual) Eosinophils # (Manual) PT INR APTT Fibrinogen POC ABG pH ABG pH POC ABG pCO2 POC ABG pO2 ABG pO2 ABG HCO3 ABG O2 Saturation ABG Base Excess ABG Hemoglobin Oxyhemoglobin Sodium 129 L Potassium Chloride 88.6 L Carbon Dioxide 19 L BUN 117 H Creatinine 6.7 H Glucose 205 H POC Glucose 228 H 223 H Uric Acid Calcium 7.4 L Phosphorus 7.40 H Magnesium Iron TIBC AST 58 H ALT 149 H Total Creatine Kinase CK-MB (CK-2) Troponin T NT-Pro-B Natriuret Pep Total Protein 6.0 L Albumin 2.5 L Triglycerides HDL Cholesterol Folate Urine WBC (Auto) Urine Creatinine Urine Total Protein Vancomycin Trough 01/12/1206/01/19 06/01/19 04:33 05:27 12:31 WBC RBC Hgb Hct MCV MCH MCHC RDW Plt Count Lymph % (Auto) [place] % (Auto) Eos % (Auto) Lymph # [place] # Eos # Seg Neutrophils % Seg Neuts % (Manual) Lymphocytes % (Manual) Monocytes % (Manual) Eosinophils % (Manual) Nucleated RBC % Seg Neutrophils # Seg Neutrophils # Man Lymphocytes # (Manual) Monocytes # (Manual) Eosinophils # (Manual) PT INR APTT Fibrinogen POC ABG pH ABG pH POC ABG pCO2 POC ABG pO2 ABG pO2 56.9 L ABG HCO3 ABG O2 Saturation 85.9 L ABG Base Excess ABG Hemoglobin 8.1 L Oxyhemoglobin 83.6 L Sodium Potassium Chloride Carbon Dioxide BUN Creatinine Glucose POC Glucose 183 H 217 H Uric Acid Calcium Phosphorus Magnesium Iron TIBC AST ALT Total Creatine Kinase CK-MB (CK-2) Troponin T NT-Pro-B Natriuret Pep Total Protein Albumin Triglycerides HDL Cholesterol Folate Urine WBC (Auto) Urine Creatinine Urine Total Protein Vancomycin Trough 06/01/19 06/02/19 06/02/19 18:20 00:00 05:33 WBC RBC Hgb Hct MCV MCH MCHC RDW Plt Count Lymph % (Auto) [place] % (Auto) Eos % (Auto) Lymph # [place] # Eos # Seg Neutrophils % Seg Neuts % (Manual) Lymphocytes % (Manual) Monocytes % (Manual) Eosinophils % (Manual) Nucleated RBC % Seg Neutrophils # Seg Neutrophils # Man Lymphocytes # (Manual) Monocytes # (Manual) Eosinophils # (Manual) PT INR APTT Fibrinogen POC ABG pH ABG pH POC ABG pCO2 POC ABG pO2 ABG pO2 ABG HCO3 ABG O2 Saturation ABG Base Excess ABG Hemoglobin Oxyhemoglobin Sodium Potassium Chloride Carbon Dioxide BUN Creatinine Glucose POC Glucose 265 H 279 H 259 H Uric Acid Calcium Phosphorus Magnesium Iron TIBC AST ALT Total Creatine Kinase CK-MB (CK-2) Troponin T NT-Pro-B Natriuret Pep Total Protein Albumin Triglycerides HDL Cholesterol Folate Urine WBC (Auto) Urine Creatinine Urine Total Protein Vancomycin Trough 06/02/19 06/02/19 06/02/19 11:06 11:06 11:42 WBC 13.1 H RBC 2.92 L Hgb 7.9 L Hct 24.4 L MCV MCH 27 L MCHC RDW 17.4 H Plt Count Lymph % (Auto) [place] % (Auto) Eos % (Auto) Lymph # [place] # Eos # Seg Neutrophils % Seg Neuts % (Manual) 78.0 H Lymphocytes % (Manual) 12.0 L Monocytes % (Manual) 10.0 H Eosinophils % (Manual) Nucleated RBC % Seg Neutrophils # Seg Neutrophils # Man 10.2 H Lymphocytes # (Manual) Monocytes # (Manual) 1.3 H Eosinophils # (Manual) PT INR APTT Fibrinogen POC ABG pH ABG pH POC ABG pCO2 POC ABG pO2 ABG pO2 ABG HCO3 ABG O2 Saturation ABG Base Excess ABG Hemoglobin Oxyhemoglobin Sodium 135 L Potassium Chloride 94.7 L Carbon Dioxide 21 L BUN 107 H Creatinine 4.5 H Glucose 286 H POC Glucose 263 H Uric Acid Calcium 7.9 L Phosphorus 6.30 H Magnesium Iron TIBC AST ALT 104 H Total Creatine Kinase CK-MB (CK-2) Troponin T NT-Pro-B Natriuret Pep Total Protein 6.0 L Albumin 2.7 L Triglycerides HDL Cholesterol Folate Urine WBC (Auto) Urine Creatinine Urine Total Protein Vancomycin Trough 06/02/19 06/02/19 06/03/19 18:17 23:55 05:30 WBC RBC Hgb Hct MCV MCH MCHC RDW Plt Count Lymph % (Auto) [place] % (Auto) Eos % (Auto) Lymph # [place] # Eos # Seg Neutrophils % Seg Neuts % (Manual) Lymphocytes % (Manual) Monocytes % (Manual) Eosinophils % (Manual) Nucleated RBC % Seg Neutrophils # Seg Neutrophils # Man Lymphocytes # (Manual) Monocytes # (Manual) Eosinophils # (Manual) PT INR APTT Fibrinogen POC ABG pH ABG pH POC ABG pCO2 POC ABG pO2 ABG pO2 ABG HCO3 ABG O2 Saturation ABG Base Excess ABG Hemoglobin Oxyhemoglobin Sodium Potassium Chloride 95.1 L Carbon Dioxide 21 L BUN 119 H Creatinine 4.1 H Glucose 330 H POC Glucose 276 H 244 H Uric Acid Calcium 8.1 L Phosphorus Magnesium Iron TIBC AST ALT 98 H Total Creatine Kinase CK-MB (CK-2) Troponin T NT-Pro-B Natriuret Pep Total Protein 5.8 L Albumin 2.8 L Triglycerides HDL Cholesterol Folate Urine WBC (Auto) Urine Creatinine Urine Total Protein Vancomycin Trough 06/03/19 06/03/19 06/03/19 05:30 06:04 09:42 WBC 12.8 H RBC 3.01 L Hgb 8.2 L Hct 25.4 L MCV MCH 27 L MCHC RDW 17.5 H Plt Count Lymph % (Auto) [place] % (Auto) Eos % (Auto) Lymph # [place] # Eos # Seg Neutrophils % Seg Neuts % (Manual) 78.0 H Lymphocytes % (Manual) 10.0 L Monocytes % (Manual) 12.0 H Eosinophils % (Manual) Nucleated RBC % Seg Neutrophils # Seg Neutrophils # Man 10.0 H Lymphocytes # (Manual) Monocytes # (Manual) 1.5 H Eosinophils # (Manual) PT INR APTT Fibrinogen POC ABG pH ABG pH POC ABG pCO2 POC ABG pO2 ABG pO2 ABG HCO3 ABG O2 Saturation ABG Base Excess ABG Hemoglobin Oxyhemoglobin Sodium Potassium Chloride Carbon Dioxide BUN 106 H Creatinine Glucose POC Glucose 254 H Uric Acid Calcium Phosphorus Magnesium Iron TIBC AST ALT Total Creatine Kinase CK-MB (CK-2) Troponin T NT-Pro-B Natriuret Pep Total Protein Albumin Triglycerides HDL Cholesterol Folate Urine WBC (Auto) Urine Creatinine Urine Total Protein Vancomycin Trough 06/03/19 06/03/19 06/03/19 12:52 17:25 23:37 WBC RBC Hgb Hct MCV MCH MCHC RDW Plt Count Lymph % (Auto) [place] % (Auto) Eos % (Auto) Lymph # [place] # Eos # Seg Neutrophils % Seg Neuts % (Manual) Lymphocytes % (Manual) Monocytes % (Manual) Eosinophils % (Manual) Nucleated RBC % Seg Neutrophils # Seg Neutrophils # Man Lymphocytes # (Manual) Monocytes # (Manual) Eosinophils # (Manual) PT INR APTT Fibrinogen POC ABG pH ABG pH POC ABG pCO2 POC ABG pO2 ABG pO2 ABG HCO3 ABG O2 Saturation ABG Base Excess ABG Hemoglobin Oxyhemoglobin Sodium Potassium Chloride Carbon Dioxide BUN Creatinine Glucose POC Glucose 274 H 285 H 310 H Uric Acid Calcium Phosphorus Magnesium Iron TIBC AST ALT Total Creatine Kinase CK-MB (CK-2) Troponin T NT-Pro-B Natriuret Pep Total Protein Albumin Triglycerides HDL Cholesterol Folate Urine WBC (Auto) Urine Creatinine Urine Total Protein Vancomycin Trough 06/04/19 06/04/19 06/04/19 04:57 05:03 11:50 WBC RBC Hgb Hct MCV MCH MCHC RDW Plt Count Lymph % (Auto) [place] % (Auto) Eos % (Auto) Lymph # [place] # Eos # Seg Neutrophils % Seg Neuts % (Manual) Lymphocytes % (Manual) Monocytes % (Manual) Eosinophils % (Manual) Nucleated RBC % Seg Neutrophils # Seg Neutrophils # Man Lymphocytes # (Manual) Monocytes # (Manual) Eosinophils # (Manual) PT INR APTT Fibrinogen POC ABG pH 7.488 H ABG pH POC ABG pCO2 POC ABG pO2 ABG pO2 ABG HCO3 ABG O2 Saturation ABG Base Excess ABG Hemoglobin Oxyhemoglobin Sodium Potassium Chloride Carbon Dioxide BUN Creatinine Glucose POC Glucose 275 H 279 H Uric Acid Calcium Phosphorus Magnesium Iron TIBC AST ALT Total Creatine Kinase CK-MB (CK-2) Troponin T NT-Pro-B Natriuret Pep Total Protein Albumin Triglycerides HDL Cholesterol Folate Urine WBC (Auto) Urine Creatinine Urine Total Protein Vancomycin Trough 06/04/19 06/04/19 06/04/19 18:32 22:03 23:55 WBC RBC Hgb Hct MCV MCH MCHC RDW Plt Count Lymph % (Auto) [place] % (Auto) Eos % (Auto) Lymph # [place] # Eos # Seg Neutrophils % Seg Neuts % (Manual) Lymphocytes % (Manual) Monocytes % (Manual) Eosinophils % (Manual) Nucleated RBC % Seg Neutrophils # Seg Neutrophils # Man Lymphocytes # (Manual) Monocytes # (Manual) Eosinophils # (Manual) PT INR APTT Fibrinogen POC ABG pH ABG pH POC ABG pCO2 POC ABG pO2 ABG pO2 ABG HCO3 ABG O2 Saturation ABG Base Excess ABG Hemoglobin Oxyhemoglobin Sodium Potassium Chloride Carbon Dioxide BUN Creatinine Glucose POC Glucose 267 H 307 H 292 H Uric Acid Calcium Phosphorus Magnesium Iron TIBC AST ALT Total Creatine Kinase CK-MB (CK-2) Troponin T NT-Pro-B Natriuret Pep Total Protein Albumin Triglycerides HDL Cholesterol Folate Urine WBC (Auto) Urine Creatinine Urine Total Protein Vancomycin Trough 06/05/19 06/05/19 06/05/19 03:52 06:41 12:29 WBC RBC Hgb Hct MCV MCH MCHC RDW Plt Count Lymph % (Auto) [place] % (Auto) Eos % (Auto) Lymph # [place] # Eos # Seg Neutrophils % Seg Neuts % (Manual) Lymphocytes % (Manual) Monocytes % (Manual) Eosinophils % (Manual) Nucleated RBC % Seg Neutrophils # Seg Neutrophils # Man Lymphocytes # (Manual) Monocytes # (Manual) Eosinophils # (Manual) PT INR APTT Fibrinogen POC ABG pH 7.462 H ABG pH POC ABG pCO2 POC ABG pO2 ABG pO2 ABG HCO3 ABG O2 Saturation ABG Base Excess ABG Hemoglobin Oxyhemoglobin Sodium Potassium Chloride Carbon Dioxide BUN Creatinine Glucose POC Glucose 369 H 265 H Uric Acid Calcium Phosphorus Magnesium Iron TIBC AST ALT Total Creatine Kinase CK-MB (CK-2) Troponin T NT-Pro-B Natriuret Pep Total Protein Albumin Triglycerides HDL Cholesterol Folate Urine WBC (Auto) Urine Creatinine Urine Total Protein Vancomycin Trough 06/05/19 06/05/19 06/05/19 18:20 21:42 23:21 WBC RBC Hgb Hct MCV MCH MCHC RDW Plt Count Lymph % (Auto) [place] % (Auto) Eos % (Auto) Lymph # [place] # Eos # Seg Neutrophils % Seg Neuts % (Manual) Lymphocytes % (Manual) Monocytes % (Manual) Eosinophils % (Manual) Nucleated RBC % Seg Neutrophils # Seg Neutrophils # Man Lymphocytes # (Manual) Monocytes # (Manual) Eosinophils # (Manual) PT INR APTT Fibrinogen POC ABG pH ABG pH POC ABG pCO2 POC ABG pO2 ABG pO2 ABG HCO3 ABG O2 Saturation ABG Base Excess ABG Hemoglobin Oxyhemoglobin Sodium Potassium Chloride Carbon Dioxide BUN Creatinine Glucose POC Glucose 249 H 246 H 274 H Uric Acid Calcium Phosphorus Magnesium Iron TIBC AST ALT Total Creatine Kinase CK-MB (CK-2) Troponin T NT-Pro-B Natriuret Pep Total Protein Albumin Triglycerides HDL Cholesterol Folate Urine WBC (Auto) Urine Creatinine Urine Total Protein Vancomycin Trough 06/06/19 06/06/19 06/06/19 04:00 05:49 11:34 WBC 18.1 H RBC 3.53 L Hgb 9.5 L Hct 30.3 L MCV MCH 27 L MCHC 31 L RDW 19.5 H Plt Count Lymph % (Auto) [place] % (Auto) Eos % (Auto) Lymph # [place] # Eos # Seg Neutrophils % Seg Neuts % (Manual) 87.0 H Lymphocytes % (Manual) 3.0 L Monocytes % (Manual) 8.0 H Eosinophils % (Manual) Nucleated RBC % Seg Neutrophils # Seg Neutrophils # Man 15.7 H Lymphocytes # (Manual) 0.5 L Monocytes # (Manual) 1.4 H Eosinophils # (Manual) PT INR APTT Fibrinogen POC ABG pH ABG pH 7.472 H POC ABG pCO2 POC ABG pO2 ABG pO2 76.4 L ABG HCO3 28.1 H ABG O2 Saturation ABG Base Excess 4.3 H ABG Hemoglobin 12.5 L Oxyhemoglobin 93.8 L Sodium Potassium Chloride Carbon Dioxide BUN Creatinine Glucose POC Glucose 340 H Uric Acid Calcium Phosphorus Magnesium Iron TIBC AST ALT Total Creatine Kinase CK-MB (CK-2) Troponin T NT-Pro-B Natriuret Pep Total Protein Albumin Triglycerides HDL Cholesterol Folate Urine WBC (Auto) Urine Creatinine Urine Total Protein Vancomycin Trough 06/06/19 06/06/19 06/06/19 11:34 12:11 18:10 WBC RBC Hgb Hct MCV MCH MCHC RDW Plt Count Lymph % (Auto) [place] % (Auto) Eos % (Auto) Lymph # [place] # Eos # Seg Neutrophils % Seg Neuts % (Manual) Lymphocytes % (Manual) Monocytes % (Manual) Eosinophils % (Manual) Nucleated RBC % Seg Neutrophils # Seg Neutrophils # Man Lymphocytes # (Manual) Monocytes # (Manual) Eosinophils # (Manual) PT INR APTT Fibrinogen POC ABG pH ABG pH POC ABG pCO2 POC ABG pO2 ABG pO2 ABG HCO3 ABG O2 Saturation ABG Base Excess ABG Hemoglobin Oxyhemoglobin Sodium Potassium Chloride Carbon Dioxide BUN 70 H Creatinine Glucose 310 H POC Glucose 283 H 301 H Uric Acid Calcium 8.3 L Phosphorus 4.60 H Magnesium Iron TIBC AST ALT 75 H Total Creatine Kinase CK-MB (CK-2) Troponin T NT-Pro-B Natriuret Pep Total Protein 5.6 L Albumin 2.9 L Triglycerides HDL Cholesterol Folate Urine WBC (Auto) Urine Creatinine Urine Total Protein Vancomycin Trough 06/06/19 06/06/19 06/07/19 22:21 23:16 04:30 WBC RBC Hgb Hct MCV MCH MCHC RDW Plt Count Lymph % (Auto) [place] % (Auto) Eos % (Auto) Lymph # [place] # Eos # Seg Neutrophils % Seg Neuts % (Manual) Lymphocytes % (Manual) Monocytes % (Manual) Eosinophils % (Manual) Nucleated RBC % Seg Neutrophils # Seg Neutrophils # Man Lymphocytes # (Manual) Monocytes # (Manual) Eosinophils # (Manual) PT INR APTT Fibrinogen POC ABG pH ABG pH 7.480 H POC ABG pCO2 POC ABG pO2 ABG pO2 77.0 L ABG HCO3 27.2 H ABG O2 Saturation ABG Base Excess 3.5 H ABG Hemoglobin 7.1 L Oxyhemoglobin 94.2 L Sodium Potassium Chloride Carbon Dioxide BUN Creatinine Glucose POC Glucose 289 H 343 H Uric Acid Calcium Phosphorus Magnesium Iron TIBC AST ALT Total Creatine Kinase CK-MB (CK-2) Troponin T NT-Pro-B Natriuret Pep Total Protein Albumin Triglycerides HDL Cholesterol Folate Urine WBC (Auto) Urine Creatinine Urine Total Protein Vancomycin Trough 06/07/19 06/07/19 06/07/19 05:15 12:52 18:41 WBC RBC Hgb Hct MCV MCH MCHC RDW Plt Count Lymph % (Auto) [place] % (Auto) Eos % (Auto) Lymph # [place] # Eos # Seg Neutrophils % Seg Neuts % (Manual) Lymphocytes % (Manual) Monocytes % (Manual) Eosinophils % (Manual) Nucleated RBC % Seg Neutrophils # Seg Neutrophils # Man Lymphocytes # (Manual) Monocytes # (Manual) Eosinophils # (Manual) PT INR APTT Fibrinogen POC ABG pH ABG pH POC ABG pCO2 POC ABG pO2 ABG pO2 ABG HCO3 ABG O2 Saturation ABG Base Excess ABG Hemoglobin Oxyhemoglobin Sodium Potassium Chloride Carbon Dioxide BUN Creatinine Glucose POC Glucose 307 H 226 H 187 H Uric Acid Calcium Phosphorus Magnesium Iron TIBC AST ALT Total Creatine Kinase CK-MB (CK-2) Troponin T NT-Pro-B Natriuret Pep Total Protein Albumin Triglycerides HDL Cholesterol Folate Urine WBC (Auto) Urine Creatinine Urine Total Protein Vancomycin Trough 06/07/19 06/07/19 06/08/19 22:54 23:46 04:20 WBC 16.0 H RBC Hgb 10.0 L Hct 32.1 L MCV MCH 27 L MCHC 31 L RDW 19.4 H Plt Count Lymph % (Auto) [place] % (Auto) Eos % (Auto) Lymph # [place] # Eos # Seg Neutrophils % Seg Neuts % (Manual) 87.0 H Lymphocytes % (Manual) 7.0 L Monocytes % (Manual) Eosinophils % (Manual) Nucleated RBC % Seg Neutrophils # Seg Neutrophils # Man 13.9 H Lymphocytes # (Manual) 1.1 L Monocytes # (Manual) 1.0 H Eosinophils # (Manual) PT INR APTT Fibrinogen POC ABG pH ABG pH POC ABG pCO2 POC ABG pO2 ABG pO2 ABG HCO3 ABG O2 Saturation ABG Base Excess ABG Hemoglobin Oxyhemoglobin Sodium Potassium Chloride Carbon Dioxide BUN Creatinine Glucose POC Glucose 199 H 172 H Uric Acid Calcium Phosphorus Magnesium Iron TIBC AST ALT Total Creatine Kinase CK-MB (CK-2) Troponin T NT-Pro-B Natriuret Pep Total Protein Albumin Triglycerides HDL Cholesterol Folate Urine WBC (Auto) Urine Creatinine Urine Total Protein Vancomycin Trough 06/08/19 06/08/19 06/08/19 04:20 05:15 11:31 WBC RBC Hgb Hct MCV MCH MCHC RDW Plt Count Lymph % (Auto) [place] % (Auto) Eos % (Auto) Lymph # [place] # Eos # Seg Neutrophils % Seg Neuts % (Manual) Lymphocytes % (Manual) Monocytes % (Manual) Eosinophils % (Manual) Nucleated RBC % Seg Neutrophils # Seg Neutrophils # Man Lymphocytes # (Manual) Monocytes # (Manual) Eosinophils # (Manual) PT INR APTT Fibrinogen POC ABG pH ABG pH POC ABG pCO2 POC ABG pO2 ABG pO2 ABG HCO3 ABG O2 Saturation ABG Base Excess ABG Hemoglobin Oxyhemoglobin Sodium 146 H D Potassium Chloride Carbon Dioxide BUN 77 H Creatinine Glucose 205 H POC Glucose 209 H 181 H Uric Acid Calcium Phosphorus Magnesium Iron TIBC AST ALT 66 H Total Creatine Kinase CK-MB (CK-2) Troponin T NT-Pro-B Natriuret Pep Total Protein 5.5 L Albumin 2.9 L Triglycerides HDL Cholesterol Folate Urine WBC (Auto) Urine Creatinine Urine Total Protein Vancomycin Trough 06/08/19 06/08/19 06/09/19 17:28 23:24 05:20 WBC RBC Hgb Hct MCV MCH MCHC RDW Plt Count Lymph % (Auto) [place] % (Auto) Eos % (Auto) Lymph # [place] # Eos # Seg Neutrophils % Seg Neuts % (Manual) Lymphocytes % (Manual) Monocytes % (Manual) Eosinophils % (Manual) Nucleated RBC % Seg Neutrophils # Seg Neutrophils # Man Lymphocytes # (Manual) Monocytes # (Manual) Eosinophils # (Manual) PT INR APTT Fibrinogen POC ABG pH ABG pH POC ABG pCO2 POC ABG pO2 ABG pO2 ABG HCO3 ABG O2 Saturation ABG Base Excess ABG Hemoglobin Oxyhemoglobin Sodium Potassium Chloride Carbon Dioxide BUN Creatinine Glucose POC Glucose 215 H 200 H 173 H Uric Acid Calcium Phosphorus Magnesium Iron TIBC AST ALT Total Creatine Kinase CK-MB (CK-2) Troponin T NT-Pro-B Natriuret Pep Total Protein Albumin Triglycerides HDL Cholesterol Folate Urine WBC (Auto) Urine Creatinine Urine Total Protein Vancomycin Trough 06/09/19 06/09/19 06/09/19 12:07 18:32 23:51 WBC RBC Hgb Hct MCV MCH MCHC RDW Plt Count Lymph % (Auto) [place] % (Auto) Eos % (Auto) Lymph # [place] # Eos # Seg Neutrophils % Seg Neuts % (Manual) Lymphocytes % (Manual) Monocytes % (Manual) Eosinophils % (Manual) Nucleated RBC % Seg Neutrophils # Seg Neutrophils # Man Lymphocytes # (Manual) Monocytes # (Manual) Eosinophils # (Manual) PT INR APTT Fibrinogen POC ABG pH ABG pH POC ABG pCO2 POC ABG pO2 ABG pO2 ABG HCO3 ABG O2 Saturation ABG Base Excess ABG Hemoglobin Oxyhemoglobin Sodium Potassium Chloride Carbon Dioxide BUN Creatinine Glucose POC Glucose 117 H 169 H 147 H Uric Acid Calcium Phosphorus Magnesium Iron TIBC AST ALT Total Creatine Kinase CK-MB (CK-2) Troponin T NT-Pro-B Natriuret Pep Total Protein Albumin Triglycerides HDL Cholesterol Folate Urine WBC (Auto) Urine Creatinine Urine Total Protein Vancomycin Trough 06/10/19 06/10/19 06/10/19 05:45 05:45 06:01 WBC 14.6 H RBC Hgb 9.9 L Hct 32.2 L MCV MCH 27 L MCHC 31 L RDW 19.6 H Plt Count Lymph % (Auto) 10.5 L [place] % (Auto) 9.4 H Eos % (Auto) Lymph # [place] # 1.4 H Eos # Seg Neutrophils % 79.9 H Seg Neuts % (Manual) Lymphocytes % (Manual) Monocytes % (Manual) Eosinophils % (Manual) Nucleated RBC % Seg Neutrophils # 11.7 H Seg Neutrophils # Man Lymphocytes # (Manual) Monocytes # (Manual) Eosinophils # (Manual) PT INR APTT Fibrinogen POC ABG pH ABG pH POC ABG pCO2 POC ABG pO2 ABG pO2 ABG HCO3 ABG O2 Saturation ABG Base Excess ABG Hemoglobin Oxyhemoglobin Sodium 150 H Potassium Chloride 108.3 H Carbon Dioxide BUN 49 H Creatinine Glucose 172 H POC Glucose 165 H Uric Acid Calcium Phosphorus Magnesium 1.40 L Iron TIBC AST ALT Total Creatine Kinase CK-MB (CK-2) Troponin T NT-Pro-B Natriuret Pep Total Protein Albumin Triglycerides HDL Cholesterol Folate Urine WBC (Auto) Urine Creatinine Urine Total Protein Vancomycin Trough 06/10/19 06/10/19 06/11/19 12:11 18:30 00:02 WBC RBC Hgb Hct MCV MCH MCHC RDW Plt Count Lymph % (Auto) [place] % (Auto) Eos % (Auto) Lymph # [place] # Eos # Seg Neutrophils % Seg Neuts % (Manual) Lymphocytes % (Manual) Monocytes % (Manual) Eosinophils % (Manual) Nucleated RBC % Seg Neutrophils # Seg Neutrophils # Man Lymphocytes # (Manual) Monocytes # (Manual) Eosinophils # (Manual) PT INR APTT Fibrinogen POC ABG pH ABG pH POC ABG pCO2 POC ABG pO2 ABG pO2 ABG HCO3 ABG O2 Saturation ABG Base Excess ABG Hemoglobin Oxyhemoglobin Sodium Potassium Chloride Carbon Dioxide BUN Creatinine Glucose POC Glucose 150 H 154 H 130 H Uric Acid Calcium Phosphorus Magnesium Iron TIBC AST ALT Total Creatine Kinase CK-MB (CK-2) Troponin T NT-Pro-B Natriuret Pep Total Protein Albumin Triglycerides HDL Cholesterol Folate Urine WBC (Auto) Urine Creatinine Urine Total Protein Vancomycin Trough 06/11/19 06/11/19 06/11/19 05:33 08:34 12:33 WBC RBC Hgb Hct MCV MCH MCHC RDW Plt Count Lymph % (Auto) [place] % (Auto) Eos % (Auto) Lymph # [place] # Eos # Seg Neutrophils % Seg Neuts % (Manual) Lymphocytes % (Manual) Monocytes % (Manual) Eosinophils % (Manual) Nucleated RBC % Seg Neutrophils # Seg Neutrophils # Man Lymphocytes # (Manual) Monocytes # (Manual) Eosinophils # (Manual) PT INR APTT Fibrinogen POC ABG pH ABG pH POC ABG pCO2 POC ABG pO2 ABG pO2 ABG HCO3 ABG O2 Saturation ABG Base Excess ABG Hemoglobin Oxyhemoglobin Sodium 154 H Potassium Chloride 111.6 H Carbon Dioxide BUN 41 H Creatinine Glucose 147 H POC Glucose 183 H 185 H Uric Acid Calcium Phosphorus Magnesium Iron TIBC AST ALT Total Creatine Kinase CK-MB (CK-2) Troponin T NT-Pro-B Natriuret Pep Total Protein Albumin Triglycerides HDL Cholesterol Folate Urine WBC (Auto) Urine Creatinine Urine Total Protein Vancomycin Trough 06/11/19 06/11/19 06/12/19 18:22 23:46 03:21 WBC 11.9 H RBC 3.61 L Hgb 9.9 L Hct 31.7 L MCV MCH 27 L MCHC 31 L RDW 19.3 H Plt Count Lymph % (Auto) 10.6 L [place] % (Auto) 8.6 H Eos % (Auto) Lymph # [place] # 1.0 H Eos # Seg Neutrophils % 80.6 H Seg Neuts % (Manual) Lymphocytes % (Manual) Monocytes % (Manual) Eosinophils % (Manual) Nucleated RBC % Seg Neutrophils # 9.6 H Seg Neutrophils # Man Lymphocytes # (Manual) Monocytes # (Manual) Eosinophils # (Manual) PT INR APTT Fibrinogen POC ABG pH ABG pH POC ABG pCO2 POC ABG pO2 ABG pO2 ABG HCO3 ABG O2 Saturation ABG Base Excess ABG Hemoglobin Oxyhemoglobin Sodium Potassium Chloride Carbon Dioxide BUN Creatinine Glucose POC Glucose 158 H 182 H Uric Acid Calcium Phosphorus Magnesium Iron TIBC AST ALT Total Creatine Kinase CK-MB (CK-2) Troponin T NT-Pro-B Natriuret Pep Total Protein Albumin Triglycerides HDL Cholesterol Folate Urine WBC (Auto) Urine Creatinine Urine Total Protein Vancomycin Trough 06/12/19 06/12/19 06/12/19 03:21 06:04 11:28 WBC RBC Hgb Hct MCV MCH MCHC RDW Plt Count Lymph % (Auto) [place] % (Auto) Eos % (Auto) Lymph # [place] # Eos # Seg Neutrophils % Seg Neuts % (Manual) Lymphocytes % (Manual) Monocytes % (Manual) Eosinophils % (Manual) Nucleated RBC % Seg Neutrophils # Seg Neutrophils # Man Lymphocytes # (Manual) Monocytes # (Manual) Eosinophils # (Manual) PT INR APTT Fibrinogen POC ABG pH ABG pH POC ABG pCO2 POC ABG pO2 ABG pO2 ABG HCO3 ABG O2 Saturation ABG Base Excess ABG Hemoglobin Oxyhemoglobin Sodium 148 H Potassium Chloride 107.3 H Carbon Dioxide BUN 34 H Creatinine 0.7 L Glucose 194 H POC Glucose 133 H 167 H Uric Acid Calcium Phosphorus Magnesium 1.40 L Iron TIBC AST ALT Total Creatine Kinase CK-MB (CK-2) Troponin T NT-Pro-B Natriuret Pep Total Protein Albumin Triglycerides HDL Cholesterol Folate Urine WBC (Auto) Urine Creatinine Urine Total Protein Vancomycin Trough 06/12/19 06/12/19 06/13/19 18:47 21:27 00:04 WBC RBC Hgb Hct MCV MCH MCHC RDW Plt Count Lymph % (Auto) [place] % (Auto) Eos % (Auto) Lymph # [place] # Eos # Seg Neutrophils % Seg Neuts % (Manual) Lymphocytes % (Manual) Monocytes % (Manual) Eosinophils % (Manual) Nucleated RBC % Seg Neutrophils # Seg Neutrophils # Man Lymphocytes # (Manual) Monocytes # (Manual) Eosinophils # (Manual) PT INR APTT Fibrinogen POC ABG pH ABG pH POC ABG pCO2 POC ABG pO2 ABG pO2 ABG HCO3 ABG O2 Saturation ABG Base Excess ABG Hemoglobin Oxyhemoglobin Sodium Potassium Chloride Carbon Dioxide BUN Creatinine Glucose POC Glucose 210 H 263 H 248 H Uric Acid Calcium Phosphorus Magnesium Iron TIBC AST ALT Total Creatine Kinase CK-MB (CK-2) Troponin T NT-Pro-B Natriuret Pep Total Protein Albumin Triglycerides HDL Cholesterol Folate Urine WBC (Auto) Urine Creatinine Urine Total Protein Vancomycin Trough 06/13/19 06/13/19 06/13/19 04:32 05:46 13:30 WBC RBC Hgb Hct MCV MCH MCHC RDW Plt Count Lymph % (Auto) [place] % (Auto) Eos % (Auto) Lymph # [place] # Eos # Seg Neutrophils % Seg Neuts % (Manual) Lymphocytes % (Manual) Monocytes % (Manual) Eosinophils % (Manual) Nucleated RBC % Seg Neutrophils # Seg Neutrophils # Man Lymphocytes # (Manual) Monocytes # (Manual) Eosinophils # (Manual) PT INR APTT Fibrinogen POC ABG pH ABG pH POC ABG pCO2 POC ABG pO2 ABG pO2 ABG HCO3 ABG O2 Saturation ABG Base Excess ABG Hemoglobin Oxyhemoglobin Sodium Potassium Chloride Carbon Dioxide BUN 27 H Creatinine 0.7 L Glucose 253 H POC Glucose 201 H 241 H Uric Acid Calcium Phosphorus Magnesium Iron TIBC AST ALT Total Creatine Kinase CK-MB (CK-2) Troponin T NT-Pro-B Natriuret Pep Total Protein Albumin Triglycerides HDL Cholesterol Folate Urine WBC (Auto) Urine Creatinine Urine Total Protein Vancomycin Trough 06/13/19 06/13/19 06/14/19 17:33 23:49 04:50 WBC RBC Hgb Hct MCV MCH MCHC RDW Plt Count Lymph % (Auto) [place] % (Auto) Eos % (Auto) Lymph # [place] # Eos # Seg Neutrophils % Seg Neuts % (Manual) Lymphocytes % (Manual) Monocytes % (Manual) Eosinophils % (Manual) Nucleated RBC % Seg Neutrophils # Seg Neutrophils # Man Lymphocytes # (Manual) Monocytes # (Manual) Eosinophils # (Manual) PT INR APTT Fibrinogen POC ABG pH ABG pH POC ABG pCO2 POC ABG pO2 ABG pO2 ABG HCO3 ABG O2 Saturation ABG Base Excess ABG Hemoglobin Oxyhemoglobin Sodium Potassium Chloride Carbon Dioxide BUN 37 H Creatinine Glucose 256 H POC Glucose 264 H 236 H Uric Acid Calcium Phosphorus Magnesium Iron TIBC AST ALT Total Creatine Kinase CK-MB (CK-2) Troponin T NT-Pro-B Natriuret Pep Total Protein Albumin Triglycerides HDL Cholesterol Folate Urine WBC (Auto) Urine Creatinine Urine Total Protein Vancomycin Trough 06/14/19 06/14/19 06/14/19 05:26 12:31 18:32 WBC RBC Hgb Hct MCV MCH MCHC RDW Plt Count Lymph % (Auto) [place] % (Auto) Eos % (Auto) Lymph # [place] # Eos # Seg Neutrophils % Seg Neuts % (Manual) Lymphocytes % (Manual) Monocytes % (Manual) Eosinophils % (Manual) Nucleated RBC % Seg Neutrophils # Seg Neutrophils # Man Lymphocytes # (Manual) Monocytes # (Manual) Eosinophils # (Manual) PT INR APTT Fibrinogen POC ABG pH ABG pH POC ABG pCO2 POC ABG pO2 ABG pO2 ABG HCO3 ABG O2 Saturation ABG Base Excess ABG Hemoglobin Oxyhemoglobin Sodium Potassium Chloride Carbon Dioxide BUN Creatinine Glucose POC Glucose 239 H 116 H 247 H Uric Acid Calcium Phosphorus Magnesium Iron TIBC AST ALT Total Creatine Kinase CK-MB (CK-2) Troponin T NT-Pro-B Natriuret Pep Total Protein Albumin Triglycerides HDL Cholesterol Folate Urine WBC (Auto) Urine Creatinine Urine Total Protein Vancomycin Trough 06/14/19 06/15/19 06/15/19 23:57 04:05 05:55 WBC RBC Hgb Hct MCV MCH MCHC RDW Plt Count Lymph % (Auto) [place] % (Auto) Eos % (Auto) Lymph # [place] # Eos # Seg Neutrophils % Seg Neuts % (Manual) Lymphocytes % (Manual) Monocytes % (Manual) Eosinophils % (Manual) Nucleated RBC % Seg Neutrophils # Seg Neutrophils # Man Lymphocytes # (Manual) Monocytes # (Manual) Eosinophils # (Manual) PT INR APTT Fibrinogen POC ABG pH ABG pH POC ABG pCO2 POC ABG pO2 ABG pO2 ABG HCO3 ABG O2 Saturation ABG Base Excess ABG Hemoglobin Oxyhemoglobin Sodium Potassium Chloride Carbon Dioxide BUN 46 H Creatinine 0.7 L Glucose 265 H POC Glucose 206 H 265 H Uric Acid Calcium Phosphorus Magnesium Iron TIBC AST ALT Total Creatine Kinase CK-MB (CK-2) Troponin T NT-Pro-B Natriuret Pep Total Protein Albumin Triglycerides HDL Cholesterol Folate Urine WBC (Auto) Urine Creatinine Urine Total Protein Vancomycin Trough 06/15/19 06/15/19 06/15/19 12:08 18:45 23:41 WBC RBC Hgb Hct MCV MCH MCHC RDW Plt Count Lymph % (Auto) [place] % (Auto) Eos % (Auto) Lymph # [place] # Eos # Seg Neutrophils % Seg Neuts % (Manual) Lymphocytes % (Manual) Monocytes % (Manual) Eosinophils % (Manual) Nucleated RBC % Seg Neutrophils # Seg Neutrophils # Man Lymphocytes # (Manual) Monocytes # (Manual) Eosinophils # (Manual) PT INR APTT Fibrinogen POC ABG pH ABG pH POC ABG pCO2 POC ABG pO2 ABG pO2 ABG HCO3 ABG O2 Saturation ABG Base Excess ABG Hemoglobin Oxyhemoglobin Sodium Potassium Chloride Carbon Dioxide BUN Creatinine Glucose POC Glucose 224 H 177 H 193 H Uric Acid Calcium Phosphorus Magnesium Iron TIBC AST ALT Total Creatine Kinase CK-MB (CK-2) Troponin T NT-Pro-B Natriuret Pep Total Protein Albumin Triglycerides HDL Cholesterol Folate Urine WBC (Auto) Urine Creatinine Urine Total Protein Vancomycin Trough 06/16/19 06/16/19 06/16/19 05:00 05:00 05:40 WBC 11.9 H RBC 3.24 L Hgb 9.0 L Hct 29.0 L MCV MCH MCHC 31 L RDW 18.6 H Plt Count 111 L Lymph % (Auto) [place] % (Auto) Eos % (Auto) Lymph # [place] # Eos # Seg Neutrophils % Seg Neuts % (Manual) 92.0 H Lymphocytes % (Manual) 2.0 L Monocytes % (Manual) Eosinophils % (Manual) Nucleated RBC % Seg Neutrophils # Seg Neutrophils # Man 10.9 H Lymphocytes # (Manual) 0.2 L Monocytes # (Manual) Eosinophils # (Manual) PT INR APTT Fibrinogen POC ABG pH ABG pH POC ABG pCO2 POC ABG pO2 ABG pO2 ABG HCO3 ABG O2 Saturation ABG Base Excess ABG Hemoglobin Oxyhemoglobin Sodium Potassium Chloride Carbon Dioxide 33 H BUN 49 H Creatinine 0.7 L Glucose 264 H POC Glucose 247 H Uric Acid Calcium Phosphorus Magnesium Iron TIBC AST ALT Total Creatine Kinase CK-MB (CK-2) Troponin T NT-Pro-B Natriuret Pep Total Protein Albumin Triglycerides HDL Cholesterol Folate Urine WBC (Auto) Urine Creatinine Urine Total Protein Vancomycin Trough 06/16/19 06/16/19 06/16/19 12:03 17:11 18:11 WBC RBC Hgb Hct MCV MCH MCHC RDW Plt Count Lymph % (Auto) [place] % (Auto) Eos % (Auto) Lymph # [place] # Eos # Seg Neutrophils % Seg Neuts % (Manual) Lymphocytes % (Manual) Monocytes % (Manual) Eosinophils % (Manual) Nucleated RBC % Seg Neutrophils # Seg Neutrophils # Man Lymphocytes # (Manual) Monocytes # (Manual) Eosinophils # (Manual) PT INR APTT Fibrinogen POC ABG pH ABG pH 7.289 L POC ABG pCO2 POC ABG pO2 ABG pO2 399.3 H ABG HCO3 30.1 H ABG O2 Saturation 99.6 H ABG Base Excess ABG Hemoglobin 8.6 L Oxyhemoglobin Sodium Potassium Chloride Carbon Dioxide BUN Creatinine Glucose POC Glucose 252 H 254 H Uric Acid Calcium Phosphorus Magnesium Iron TIBC AST ALT Total Creatine Kinase CK-MB (CK-2) Troponin T NT-Pro-B Natriuret Pep Total Protein Albumin Triglycerides HDL Cholesterol Folate Urine WBC (Auto) Urine Creatinine Urine Total Protein Vancomycin Trough 06/16/19 06/17/19 06/17/19 23:16 05:30 05:53 WBC RBC Hgb Hct MCV MCH MCHC RDW Plt Count Lymph % (Auto) [place] % (Auto) Eos % (Auto) Lymph # [place] # Eos # Seg Neutrophils % Seg Neuts % (Manual) Lymphocytes % (Manual) Monocytes % (Manual) Eosinophils % (Manual) Nucleated RBC % Seg Neutrophils # Seg Neutrophils # Man Lymphocytes # (Manual) Monocytes # (Manual) Eosinophils # (Manual) PT INR APTT Fibrinogen POC ABG pH ABG pH POC ABG pCO2 POC ABG pO2 ABG pO2 ABG HCO3 ABG O2 Saturation ABG Base Excess ABG Hemoglobin Oxyhemoglobin Sodium 147 H Potassium Chloride Carbon Dioxide 32 H BUN 60 H Creatinine Glucose 205 H POC Glucose 238 H 211 H Uric Acid Calcium Phosphorus Magnesium Iron TIBC AST ALT Total Creatine Kinase CK-MB (CK-2) Troponin T NT-Pro-B Natriuret Pep Total Protein Albumin Triglycerides HDL Cholesterol Folate Urine WBC (Auto) Urine Creatinine Urine Total Protein Vancomycin Trough 06/17/19 06/17/19 06/17/19 09:50 12:27 12:45 WBC RBC 2.79 L Hgb 8.2 L Hct 24.6 L MCV MCH MCHC RDW 18.5 H Plt Count 95 L Lymph % (Auto) [place] % (Auto) Eos % (Auto) Lymph # [place] # Eos # Seg Neutrophils % Seg Neuts % (Manual) Lymphocytes % (Manual) Monocytes % (Manual) Eosinophils % (Manual) Nucleated RBC % Seg Neutrophils # Seg Neutrophils # Man Lymphocytes # (Manual) Monocytes # (Manual) Eosinophils # (Manual) PT INR APTT Fibrinogen 194 L POC ABG pH ABG pH POC ABG pCO2 POC ABG pO2 ABG pO2 ABG HCO3 ABG O2 Saturation ABG Base Excess ABG Hemoglobin Oxyhemoglobin Sodium Potassium Chloride Carbon Dioxide BUN Creatinine Glucose POC Glucose 224 H Uric Acid Calcium Phosphorus Magnesium Iron TIBC AST ALT Total Creatine Kinase CK-MB (CK-2) Troponin T NT-Pro-B Natriuret Pep Total Protein Albumin Triglycerides HDL Cholesterol Folate Urine WBC (Auto) Urine Creatinine Urine Total Protein Vancomycin Trough 06/17/19 06/17/19 06/17/19 18:41 22:00 23:23 WBC RBC Hgb Hct MCV MCH MCHC RDW Plt Count Lymph % (Auto) [place] % (Auto) Eos % (Auto) Lymph # [place] # Eos # Seg Neutrophils % Seg Neuts % (Manual) Lymphocytes % (Manual) Monocytes % (Manual) Eosinophils % (Manual) Nucleated RBC % Seg Neutrophils # Seg Neutrophils # Man Lymphocytes # (Manual) Monocytes # (Manual) Eosinophils # (Manual) PT INR APTT Fibrinogen POC ABG pH ABG pH POC ABG pCO2 POC ABG pO2 ABG pO2 ABG HCO3 ABG O2 Saturation ABG Base Excess ABG Hemoglobin Oxyhemoglobin Sodium Potassium Chloride Carbon Dioxide BUN Creatinine Glucose POC Glucose 198 H 166 H 171 H Uric Acid Calcium Phosphorus Magnesium Iron TIBC AST ALT Total Creatine Kinase CK-MB (CK-2) Troponin T NT-Pro-B Natriuret Pep Total Protein Albumin Triglycerides HDL Cholesterol Folate Urine WBC (Auto) Urine Creatinine Urine Total Protein Vancomycin Trough 06/17/19 06/18/19 06/18/19 Unknown 03:50 04:25 WBC RBC Hgb Hct MCV MCH MCHC RDW Plt Count Lymph % (Auto) [place] % (Auto) Eos % (Auto) Lymph # [place] # Eos # Seg Neutrophils % Seg Neuts % (Manual) Lymphocytes % (Manual) Monocytes % (Manual) Eosinophils % (Manual) Nucleated RBC % Seg Neutrophils # Seg Neutrophils # Man Lymphocytes # (Manual) Monocytes # (Manual) Eosinophils # (Manual) PT INR APTT Fibrinogen POC ABG pH ABG pH 7.564 H 7.499 H POC ABG pCO2 POC ABG pO2 ABG pO2 238.6 H 130.8 H ABG HCO3 33.6 H 32.5 H ABG O2 Saturation 99.4 H ABG Base Excess 10.6 H 8.5 H ABG Hemoglobin 7.9 L 8.8 L Oxyhemoglobin Sodium 151 H Potassium 3.4 L Chloride Carbon Dioxide BUN 66 H Creatinine Glucose 189 H POC Glucose Uric Acid Calcium Phosphorus Magnesium Iron TIBC AST ALT Total Creatine Kinase CK-MB (CK-2) Troponin T NT-Pro-B Natriuret Pep Total Protein Albumin Triglycerides HDL Cholesterol Folate Urine WBC (Auto) Urine Creatinine Urine Total Protein Vancomycin Trough 06/18/19 06/18/19 06/18/19 05:25 05:27 11:50 WBC RBC 2.61 L Hgb 7.4 L Hct 22.9 L MCV MCH MCHC RDW 19.9 H Plt Count 81 L Lymph % (Auto) 12.9 L [place] % (Auto) 7.7 H Eos % (Auto) Lymph # 1.1 L [place] # Eos # Seg Neutrophils % 77.4 H Seg Neuts % (Manual) Lymphocytes % (Manual) Monocytes % (Manual) Eosinophils % (Manual) Nucleated RBC % Seg Neutrophils # Seg Neutrophils # Man Lymphocytes # (Manual) Monocytes # (Manual) Eosinophils # (Manual) PT INR APTT Fibrinogen POC ABG pH ABG pH POC ABG pCO2 POC ABG pO2 ABG pO2 ABG HCO3 ABG O2 Saturation ABG Base Excess ABG Hemoglobin Oxyhemoglobin Sodium Potassium Chloride Carbon Dioxide BUN Creatinine Glucose POC Glucose 186 H 263 H Uric Acid Calcium Phosphorus Magnesium Iron TIBC AST ALT Total Creatine Kinase CK-MB (CK-2) Troponin T NT-Pro-B Natriuret Pep Total Protein Albumin Triglycerides HDL Cholesterol Folate Urine WBC (Auto) Urine Creatinine Urine Total Protein Vancomycin Trough 06/18/19 06/18/19 06/18/19 18:35 21:31 23:21 WBC RBC Hgb Hct MCV MCH MCHC RDW Plt Count Lymph % (Auto) [place] % (Auto) Eos % (Auto) Lymph # [place] # Eos # Seg Neutrophils % Seg Neuts % (Manual) Lymphocytes % (Manual) Monocytes % (Manual) Eosinophils % (Manual) Nucleated RBC % Seg Neutrophils # Seg Neutrophils # Man Lymphocytes # (Manual) Monocytes # (Manual) Eosinophils # (Manual) PT INR APTT Fibrinogen POC ABG pH ABG pH POC ABG pCO2 POC ABG pO2 ABG pO2 ABG HCO3 ABG O2 Saturation ABG Base Excess ABG Hemoglobin Oxyhemoglobin Sodium Potassium Chloride Carbon Dioxide BUN Creatinine Glucose POC Glucose 154 H 186 H 202 H Uric Acid Calcium Phosphorus Magnesium Iron TIBC AST ALT Total Creatine Kinase CK-MB (CK-2) Troponin T NT-Pro-B Natriuret Pep Total Protein Albumin Triglycerides HDL Cholesterol Folate Urine WBC (Auto) Urine Creatinine Urine Total Protein Vancomycin Trough 06/19/19 06/19/19 06/19/19 03:18 04:30 04:30 WBC RBC 2.65 L Hgb 7.5 L Hct 23.1 L MCV MCH MCHC RDW 19.4 H Plt Count 74 L Lymph % (Auto) 8.8 L [place] % (Auto) 9.4 H Eos % (Auto) 4.7 H Lymph # 0.6 L [place] # Eos # Seg Neutrophils % 76.6 H Seg Neuts % (Manual) Lymphocytes % (Manual) Monocytes % (Manual) Eosinophils % (Manual) Nucleated RBC % Seg Neutrophils # Seg Neutrophils # Man Lymphocytes # (Manual) Monocytes # (Manual) Eosinophils # (Manual) PT INR APTT Fibrinogen POC ABG pH ABG pH 7.452 H POC ABG pCO2 POC ABG pO2 ABG pO2 105.5 H ABG HCO3 32.3 H ABG O2 Saturation ABG Base Excess 7.6 H ABG Hemoglobin 6.9 L Oxyhemoglobin Sodium 150 H Potassium 3.3 L Chloride Carbon Dioxide 31 H BUN 56 H Creatinine Glucose 197 H POC Glucose Uric Acid Calcium Phosphorus Magnesium Iron TIBC AST ALT Total Creatine Kinase CK-MB (CK-2) Troponin T NT-Pro-B Natriuret Pep Total Protein Albumin Triglycerides 210 H HDL Cholesterol Folate Urine WBC (Auto) Urine Creatinine Urine Total Protein Vancomycin Trough 06/19/19 06/19/19 06/19/19 05:24 12:18 18:55 WBC RBC Hgb Hct MCV MCH MCHC RDW Plt Count Lymph % (Auto) [place] % (Auto) Eos % (Auto) Lymph # [place] # Eos # Seg Neutrophils % Seg Neuts % (Manual) Lymphocytes % (Manual) Monocytes % (Manual) Eosinophils % (Manual) Nucleated RBC % Seg Neutrophils # Seg Neutrophils # Man Lymphocytes # (Manual) Monocytes # (Manual) Eosinophils # (Manual) PT INR APTT Fibrinogen POC ABG pH ABG pH POC ABG pCO2 POC ABG pO2 ABG pO2 ABG HCO3 ABG O2 Saturation ABG Base Excess ABG Hemoglobin Oxyhemoglobin Sodium Potassium Chloride Carbon Dioxide BUN Creatinine Glucose POC Glucose 176 H 260 H 192 H Uric Acid Calcium Phosphorus Magnesium Iron TIBC AST ALT Total Creatine Kinase CK-MB (CK-2) Troponin T NT-Pro-B Natriuret Pep Total Protein Albumin Triglycerides HDL Cholesterol Folate Urine WBC (Auto) Urine Creatinine Urine Total Protein Vancomycin Trough 06/19/19 06/19/19 06/20/19 22:57 23:46 04:40 WBC RBC 2.79 L Hgb 7.9 L Hct 24.3 L MCV MCH MCHC RDW 19.6 H Plt Count 92 L Lymph % (Auto) 9.2 L [place] % (Auto) 12.0 H Eos % (Auto) 5.2 H Lymph # 0.9 L [place] # 1.2 H Eos # 0.5 H Seg Neutrophils % 73.3 H Seg Neuts % (Manual) Lymphocytes % (Manual) Monocytes % (Manual) Eosinophils % (Manual) Nucleated RBC % Seg Neutrophils # Seg Neutrophils # Man Lymphocytes # (Manual) Monocytes # (Manual) Eosinophils # (Manual) PT INR APTT Fibrinogen POC ABG pH ABG pH POC ABG pCO2 POC ABG pO2 ABG pO2 ABG HCO3 ABG O2 Saturation ABG Base Excess ABG Hemoglobin Oxyhemoglobin Sodium Potassium Chloride Carbon Dioxide BUN Creatinine Glucose POC Glucose 145 H 216 H Uric Acid Calcium Phosphorus Magnesium Iron TIBC AST ALT Total Creatine Kinase CK-MB (CK-2) Troponin T NT-Pro-B Natriuret Pep Total Protein Albumin Triglycerides HDL Cholesterol Folate Urine WBC (Auto) Urine Creatinine Urine Total Protein Vancomycin Trough 06/20/19 06/20/19 06/20/19 04:40 05:40 05:54 WBC RBC Hgb Hct MCV MCH MCHC RDW Plt Count Lymph % (Auto) [place] % (Auto) Eos % (Auto) Lymph # [place] # Eos # Seg Neutrophils % Seg Neuts % (Manual) Lymphocytes % (Manual) Monocytes % (Manual) Eosinophils % (Manual) Nucleated RBC % Seg Neutrophils # Seg Neutrophils # Man Lymphocytes # (Manual) Monocytes # (Manual) Eosinophils # (Manual) PT INR APTT Fibrinogen POC ABG pH ABG pH 7.455 H POC ABG pCO2 POC ABG pO2 ABG pO2 60.9 L ABG HCO3 30.3 H ABG O2 Saturation 92.3 L ABG Base Excess 5.8 H ABG Hemoglobin 8.2 L Oxyhemoglobin 90.1 L Sodium Potassium 3.5 L Chloride Carbon Dioxide BUN 59 H Creatinine Glucose 200 H POC Glucose 190 H Uric Acid Calcium Phosphorus Magnesium 1.60 L Iron TIBC AST ALT Total Creatine Kinase CK-MB (CK-2) Troponin T NT-Pro-B Natriuret Pep Total Protein Albumin Triglycerides HDL Cholesterol Folate Urine WBC (Auto) Urine Creatinine Urine Total Protein Vancomycin Trough 06/20/19 06/20/19 06/20/19 09:12 09:12 12:24 WBC RBC Hgb Hct MCV MCH MCHC RDW Plt Count Lymph % (Auto) [place] % (Auto) Eos % (Auto) Lymph # [place] # Eos # Seg Neutrophils % Seg Neuts % (Manual) Lymphocytes % (Manual) Monocytes % (Manual) Eosinophils % (Manual) Nucleated RBC % Seg Neutrophils # Seg Neutrophils # Man Lymphocytes # (Manual) Monocytes # (Manual) Eosinophils # (Manual) PT INR APTT Fibrinogen POC ABG pH ABG pH POC ABG pCO2 POC ABG pO2 ABG pO2 ABG HCO3 ABG O2 Saturation ABG Base Excess ABG Hemoglobin Oxyhemoglobin Sodium Potassium Chloride Carbon Dioxide BUN Creatinine Glucose POC Glucose 225 H Uric Acid Calcium Phosphorus Magnesium Iron 45 L TIBC 110 L AST ALT Total Creatine Kinase CK-MB (CK-2) Troponin T NT-Pro-B Natriuret Pep Total Protein Albumin Triglycerides HDL Cholesterol Folate 7.01 L Urine WBC (Auto) Urine Creatinine Urine Total Protein Vancomycin Trough 06/20/19 06/20/19 06/20/19 17:42 21:55 23:24 WBC RBC Hgb Hct MCV MCH MCHC RDW Plt Count Lymph % (Auto) [place] % (Auto) Eos % (Auto) Lymph # [place] # Eos # Seg Neutrophils % Seg Neuts % (Manual) Lymphocytes % (Manual) Monocytes % (Manual) Eosinophils % (Manual) Nucleated RBC % Seg Neutrophils # Seg Neutrophils # Man Lymphocytes # (Manual) Monocytes # (Manual) Eosinophils # (Manual) PT INR APTT Fibrinogen POC ABG pH ABG pH POC ABG pCO2 POC ABG pO2 ABG pO2 ABG HCO3 ABG O2 Saturation ABG Base Excess ABG Hemoglobin Oxyhemoglobin Sodium Potassium Chloride Carbon Dioxide BUN Creatinine Glucose POC Glucose 255 H 218 H 215 H Uric Acid Calcium Phosphorus Magnesium Iron TIBC AST ALT Total Creatine Kinase CK-MB (CK-2) Troponin T NT-Pro-B Natriuret Pep Total Protein Albumin Triglycerides HDL Cholesterol Folate Urine WBC (Auto) Urine Creatinine Urine Total Protein Vancomycin Trough 06/21/19 06/21/19 06/21/19 03:32 03:40 05:20 WBC 12.8 H RBC 3.03 L Hgb 8.5 L Hct 26.2 L MCV MCH MCHC RDW 19.4 H Plt Count 131 L Lymph % (Auto) [place] % (Auto) Eos % (Auto) Lymph # [place] # Eos # Seg Neutrophils % Seg Neuts % (Manual) 78.0 H Lymphocytes % (Manual) 5.0 L Monocytes % (Manual) 11.0 H Eosinophils % (Manual) Nucleated RBC % Seg Neutrophils # Seg Neutrophils # Man 10.0 H Lymphocytes # (Manual) 0.6 L Monocytes # (Manual) 1.4 H Eosinophils # (Manual) 0.5 H PT INR APTT Fibrinogen POC ABG pH ABG pH 7.476 H POC ABG pCO2 POC ABG pO2 ABG pO2 162.0 H ABG HCO3 26.8 H ABG O2 Saturation 99.1 H ABG Base Excess 3.1 H ABG Hemoglobin 8.6 L Oxyhemoglobin Sodium Potassium Chloride Carbon Dioxide BUN Creatinine Glucose POC Glucose 202 H Uric Acid Calcium Phosphorus Magnesium Iron TIBC AST ALT Total Creatine Kinase CK-MB (CK-2) Troponin T NT-Pro-B Natriuret Pep Total Protein Albumin Triglycerides HDL Cholesterol Folate Urine WBC (Auto) Urine Creatinine Urine Total Protein Vancomycin Trough 06/21/19 06/21/19 06/21/19 05:20 12:30 18:18 WBC RBC Hgb Hct MCV MCH MCHC RDW Plt Count Lymph % (Auto) [place] % (Auto) Eos % (Auto) Lymph # [place] # Eos # Seg Neutrophils % Seg Neuts % (Manual) Lymphocytes % (Manual) Monocytes % (Manual) Eosinophils % (Manual) Nucleated RBC % Seg Neutrophils # Seg Neutrophils # Man Lymphocytes # (Manual) Monocytes # (Manual) Eosinophils # (Manual) PT INR APTT Fibrinogen POC ABG pH ABG pH POC ABG pCO2 POC ABG pO2 ABG pO2 ABG HCO3 ABG O2 Saturation ABG Base Excess ABG Hemoglobin Oxyhemoglobin Sodium Potassium Chloride 97.7 L Carbon Dioxide BUN 69 H Creatinine Glucose 239 H POC Glucose 176 H 187 H Uric Acid Calcium Phosphorus Magnesium 2.40 H Iron TIBC AST ALT Total Creatine Kinase CK-MB (CK-2) Troponin T NT-Pro-B Natriuret Pep Total Protein Albumin Triglycerides HDL Cholesterol Folate Urine WBC (Auto) Urine Creatinine Urine Total Protein Vancomycin Trough 06/22/19 06/22/19 06/22/19 04:11 05:30 05:30 WBC 12.6 H RBC 3.10 L Hgb 8.7 L Hct 27.0 L MCV MCH MCHC RDW 19.8 H Plt Count Lymph % (Auto) [place] % (Auto) Eos % (Auto) Lymph # [place] # Eos # Seg Neutrophils % Seg Neuts % (Manual) Lymphocytes % (Manual) Monocytes % (Manual) 10.0 H Eosinophils % (Manual) Nucleated RBC % Seg Neutrophils # Seg Neutrophils # Man 8.7 H Lymphocytes # (Manual) Monocytes # (Manual) 1.3 H Eosinophils # (Manual) PT INR APTT Fibrinogen POC ABG pH ABG pH POC ABG pCO2 POC ABG pO2 ABG pO2 ABG HCO3 27.7 H ABG O2 Saturation ABG Base Excess 3.3 H ABG Hemoglobin 8.5 L Oxyhemoglobin 94.9 L Sodium Potassium Chloride Carbon Dioxide BUN 66 H Creatinine Glucose 103 H POC Glucose Uric Acid Calcium Phosphorus Magnesium Iron TIBC AST ALT Total Creatine Kinase CK-MB (CK-2) Troponin T NT-Pro-B Natriuret Pep Total Protein Albumin Triglycerides HDL Cholesterol Folate Urine WBC (Auto) Urine Creatinine Urine Total Protein Vancomycin Trough 06/22/19 06/22/19 06/23/19 17:43 23:25 02:00 WBC RBC Hgb Hct MCV MCH MCHC RDW Plt Count Lymph % (Auto) [place] % (Auto) Eos % (Auto) Lymph # [place] # Eos # Seg Neutrophils % Seg Neuts % (Manual) Lymphocytes % (Manual) Monocytes % (Manual) Eosinophils % (Manual) Nucleated RBC % Seg Neutrophils # Seg Neutrophils # Man Lymphocytes # (Manual) Monocytes # (Manual) Eosinophils # (Manual) PT INR APTT Fibrinogen POC ABG pH ABG pH 7.469 H POC ABG pCO2 POC ABG pO2 ABG pO2 58.7 L ABG HCO3 28.0 H ABG O2 Saturation 94.6 L ABG Base Excess 4.0 H ABG Hemoglobin 7.1 L Oxyhemoglobin 92.2 L Sodium Potassium Chloride Carbon Dioxide BUN Creatinine Glucose POC Glucose 143 H 106 H Uric Acid Calcium Phosphorus Magnesium Iron TIBC AST ALT Total Creatine Kinase CK-MB (CK-2) Troponin T NT-Pro-B Natriuret Pep Total Protein Albumin Triglycerides HDL Cholesterol Folate Urine WBC (Auto) Urine Creatinine Urine Total Protein Vancomycin Trough 06/23/19 06/23/19 06/23/19 05:24 05:24 11:43 WBC 12.6 H RBC 2.96 L Hgb 8.3 L Hct 25.5 L MCV MCH MCHC RDW 20.2 H Plt Count Lymph % (Auto) [place] % (Auto) Eos % (Auto) Lymph # [place] # Eos # Seg Neutrophils % Seg Neuts % (Manual) Lymphocytes % (Manual) 12.0 L Monocytes % (Manual) 11.0 H Eosinophils % (Manual) 6.0 H Nucleated RBC % Seg Neutrophils # Seg Neutrophils # Man 8.8 H Lymphocytes # (Manual) Monocytes # (Manual) 1.4 H Eosinophils # (Manual) 0.8 H PT INR APTT Fibrinogen POC ABG pH ABG pH POC ABG pCO2 POC ABG pO2 ABG pO2 ABG HCO3 ABG O2 Saturation ABG Base Excess ABG Hemoglobin Oxyhemoglobin Sodium 146 H Potassium 3.5 L Chloride Carbon Dioxide BUN 48 H Creatinine Glucose 123 H POC Glucose 120 H Uric Acid Calcium Phosphorus Magnesium Iron TIBC AST ALT Total Creatine Kinase CK-MB (CK-2) Troponin T NT-Pro-B Natriuret Pep Total Protein Albumin Triglycerides HDL Cholesterol Folate Urine WBC (Auto) Urine Creatinine Urine Total Protein Vancomycin Trough 06/23/19 06/24/19 06/24/19 17:39 06:53 06:53 WBC 12.3 H RBC 2.87 L Hgb 8.0 L Hct 24.9 L MCV MCH MCHC RDW 20.5 H Plt Count Lymph % (Auto) [place] % (Auto) 8.8 H Eos % (Auto) 4.4 H Lymph # [place] # 1.1 H Eos # 0.5 H Seg Neutrophils % Seg Neuts % (Manual) Lymphocytes % (Manual) Monocytes % (Manual) Eosinophils % (Manual) Nucleated RBC % Seg Neutrophils # Seg Neutrophils # Man Lymphocytes # (Manual) Monocytes # (Manual) Eosinophils # (Manual) PT INR APTT Fibrinogen POC ABG pH ABG pH POC ABG pCO2 POC ABG pO2 ABG pO2 ABG HCO3 ABG O2 Saturation ABG Base Excess ABG Hemoglobin Oxyhemoglobin Sodium Potassium Chloride 107.1 H Carbon Dioxide 21 L BUN 29 H Creatinine 0.6 L Glucose 117 H POC Glucose 111 H Uric Acid Calcium Phosphorus Magnesium 1.60 L Iron TIBC AST ALT Total Creatine Kinase CK-MB (CK-2) Troponin T NT-Pro-B Natriuret Pep Total Protein Albumin Triglycerides HDL Cholesterol Folate Urine WBC (Auto) Urine Creatinine Urine Total Protein Vancomycin Trough 06/24/19 06/24/19 06/24/19 12:12 18:01 23:20 WBC RBC Hgb Hct MCV MCH MCHC RDW Plt Count Lymph % (Auto) [place] % (Auto) Eos % (Auto) Lymph # [place] # Eos # Seg Neutrophils % Seg Neuts % (Manual) Lymphocytes % (Manual) Monocytes % (Manual) Eosinophils % (Manual) Nucleated RBC % Seg Neutrophils # Seg Neutrophils # Man Lymphocytes # (Manual) Monocytes # (Manual) Eosinophils # (Manual) PT INR APTT Fibrinogen POC ABG pH ABG pH POC ABG pCO2 POC ABG pO2 ABG pO2 ABG HCO3 ABG O2 Saturation ABG Base Excess ABG Hemoglobin Oxyhemoglobin Sodium Potassium Chloride Carbon Dioxide BUN Creatinine Glucose POC Glucose 158 H 133 H 106 H Uric Acid Calcium Phosphorus Magnesium Iron TIBC AST ALT Total Creatine Kinase CK-MB (CK-2) Troponin T NT-Pro-B Natriuret Pep Total Protein Albumin Triglycerides HDL Cholesterol Folate Urine WBC (Auto) Urine Creatinine Urine Total Protein Vancomycin Trough 06/25/19 06/25/19 06/25/19 04:46 04:46 05:36 WBC 12.3 H RBC 2.98 L Hgb 8.3 L Hct 26.4 L MCV MCH MCHC 31 L RDW 20.1 H Plt Count Lymph % (Auto) [place] % (Auto) Eos % (Auto) Lymph # [place] # Eos # Seg Neutrophils % Seg Neuts % (Manual) Lymphocytes % (Manual) Monocytes % (Manual) 10.0 H Eosinophils % (Manual) Nucleated RBC % Seg Neutrophils # Seg Neutrophils # Man 8.1 H Lymphocytes # (Manual) Monocytes # (Manual) 1.2 H Eosinophils # (Manual) PT INR APTT Fibrinogen POC ABG pH ABG pH POC ABG pCO2 POC ABG pO2 ABG pO2 ABG HCO3 ABG O2 Saturation ABG Base Excess ABG Hemoglobin Oxyhemoglobin Sodium 148 H Potassium Chloride 108.0 H Carbon Dioxide BUN 21 H Creatinine 0.7 L Glucose 120 H POC Glucose 121 H Uric Acid Calcium Phosphorus Magnesium Iron TIBC AST ALT Total Creatine Kinase CK-MB (CK-2) Troponin T NT-Pro-B Natriuret Pep Total Protein Albumin Triglycerides HDL Cholesterol Folate Urine WBC (Auto) Urine Creatinine Urine Total Protein Vancomycin Trough 06/25/19 06/25/19 06/26/19 14:02 18:30 00:01 WBC RBC Hgb Hct MCV MCH MCHC RDW Plt Count Lymph % (Auto) [place] % (Auto) Eos % (Auto) Lymph # [place] # Eos # Seg Neutrophils % Seg Neuts % (Manual) Lymphocytes % (Manual) Monocytes % (Manual) Eosinophils % (Manual) Nucleated RBC % Seg Neutrophils # Seg Neutrophils # Man Lymphocytes # (Manual) Monocytes # (Manual) Eosinophils # (Manual) PT INR APTT Fibrinogen POC ABG pH ABG pH POC ABG pCO2 POC ABG pO2 ABG pO2 ABG HCO3 ABG O2 Saturation ABG Base Excess ABG Hemoglobin Oxyhemoglobin Sodium Potassium Chloride Carbon Dioxide BUN Creatinine Glucose POC Glucose 125 H 145 H 142 H Uric Acid Calcium Phosphorus Magnesium Iron TIBC AST ALT Total Creatine Kinase CK-MB (CK-2) Troponin T NT-Pro-B Natriuret Pep Total Protein Albumin Triglycerides HDL Cholesterol Folate Urine WBC (Auto) Urine Creatinine Urine Total Protein Vancomycin Trough 06/26/19 06/26/19 06/26/19 04:43 04:43 05:41 WBC RBC 3.02 L Hgb 8.6 L Hct 27.0 L MCV MCH MCHC RDW 20.4 H Plt Count Lymph % (Auto) [place] % (Auto) Eos % (Auto) Lymph # [place] # Eos # Seg Neutrophils % Seg Neuts % (Manual) Lymphocytes % (Manual) Monocytes % (Manual) 9.0 H Eosinophils % (Manual) Nucleated RBC % Seg Neutrophils # Seg Neutrophils # Man Lymphocytes # (Manual) Monocytes # (Manual) 1.0 H Eosinophils # (Manual) PT INR APTT Fibrinogen POC ABG pH ABG pH POC ABG pCO2 POC ABG pO2 ABG pO2 ABG HCO3 ABG O2 Saturation ABG Base Excess ABG Hemoglobin Oxyhemoglobin Sodium Potassium Chloride Carbon Dioxide BUN Creatinine 0.7 L Glucose 111 H POC Glucose 110 H Uric Acid Calcium Phosphorus Magnesium 1.60 L Iron TIBC AST ALT Total Creatine Kinase CK-MB (CK-2) Troponin T NT-Pro-B Natriuret Pep Total Protein Albumin Triglycerides HDL Cholesterol Folate Urine WBC (Auto) Urine Creatinine Urine Total Protein Vancomycin Trough 06/26/19 06/26/19 06/27/19 11:55 18:07 12:10 WBC RBC Hgb Hct MCV MCH MCHC RDW Plt Count Lymph % (Auto) [place] % (Auto) Eos % (Auto) Lymph # [place] # Eos # Seg Neutrophils % Seg Neuts % (Manual) Lymphocytes % (Manual) Monocytes % (Manual) Eosinophils % (Manual) Nucleated RBC % Seg Neutrophils # Seg Neutrophils # Man Lymphocytes # (Manual) Monocytes # (Manual) Eosinophils # (Manual) PT INR APTT Fibrinogen POC ABG pH ABG pH POC ABG pCO2 POC ABG pO2 ABG pO2 ABG HCO3 ABG O2 Saturation ABG Base Excess ABG Hemoglobin Oxyhemoglobin Sodium Potassium Chloride Carbon Dioxide BUN Creatinine Glucose POC Glucose 159 H 107 H 121 H Uric Acid Calcium Phosphorus Magnesium Iron TIBC AST ALT Total Creatine Kinase CK-MB (CK-2) Troponin T NT-Pro-B Natriuret Pep Total Protein Albumin Triglycerides HDL Cholesterol Folate Urine WBC (Auto) Urine Creatinine Urine Total Protein Vancomycin Trough 06/28/19 06/29/19 06/29/19 05:54 13:10 17:58 WBC RBC Hgb Hct MCV MCH MCHC RDW Plt Count Lymph % (Auto) [place] % (Auto) Eos % (Auto) Lymph # [place] # Eos # Seg Neutrophils % Seg Neuts % (Manual) Lymphocytes % (Manual) Monocytes % (Manual) Eosinophils % (Manual) Nucleated RBC % Seg Neutrophils # Seg Neutrophils # Man Lymphocytes # (Manual) Monocytes # (Manual) Eosinophils # (Manual) PT INR APTT Fibrinogen POC ABG pH ABG pH POC ABG pCO2 POC ABG pO2 ABG pO2 ABG HCO3 ABG O2 Saturation ABG Base Excess ABG Hemoglobin Oxyhemoglobin Sodium Potassium Chloride Carbon Dioxide BUN Creatinine Glucose POC Glucose 107 H 115 H 108 H Uric Acid Calcium Phosphorus Magnesium Iron TIBC AST ALT Total Creatine Kinase CK-MB (CK-2) Troponin T NT-Pro-B Natriuret Pep Total Protein Albumin Triglycerides HDL Cholesterol Folate Urine WBC (Auto) Urine Creatinine Urine Total Protein Vancomycin Trough 06/30/19 06/30/19 07/01/19 12:00 18:13 05:49 WBC RBC Hgb Hct MCV MCH MCHC RDW Plt Count Lymph % (Auto) [place] % (Auto) Eos % (Auto) Lymph # [place] # Eos # Seg Neutrophils % Seg Neuts % (Manual) Lymphocytes % (Manual) Monocytes % (Manual) Eosinophils % (Manual) Nucleated RBC % Seg Neutrophils # Seg Neutrophils # Man Lymphocytes # (Manual) Monocytes # (Manual) Eosinophils # (Manual) PT INR APTT Fibrinogen POC ABG pH ABG pH POC ABG pCO2 POC ABG pO2 ABG pO2 ABG HCO3 ABG O2 Saturation ABG Base Excess ABG Hemoglobin Oxyhemoglobin Sodium Potassium Chloride Carbon Dioxide BUN Creatinine Glucose POC Glucose 108 H 114 H 114 H Uric Acid Calcium Phosphorus Magnesium Iron TIBC AST ALT Total Creatine Kinase CK-MB (CK-2) Troponin T NT-Pro-B Natriuret Pep Total Protein Albumin Triglycerides HDL Cholesterol Folate Urine WBC (Auto) Urine Creatinine Urine Total Protein Vancomycin Trough 07/01/19 07/01/19 07/01/19 07:58 07:58 12:06 WBC 11.5 H RBC 3.24 L Hgb 9.0 L Hct 28.4 L MCV MCH MCHC RDW 20.8 H Plt Count Lymph % (Auto) 8.3 L [place] % (Auto) 10.0 H Eos % (Auto) Lymph # 0.9 L [place] # 1.2 H Eos # Seg Neutrophils % 79.4 H Seg Neuts % (Manual) Lymphocytes % (Manual) Monocytes % (Manual) Eosinophils % (Manual) Nucleated RBC % Seg Neutrophils # 9.1 H Seg Neutrophils # Man Lymphocytes # (Manual) Monocytes # (Manual) Eosinophils # (Manual) PT INR APTT Fibrinogen POC ABG pH ABG pH POC ABG pCO2 POC ABG pO2 ABG pO2 ABG HCO3 ABG O2 Saturation ABG Base Excess ABG Hemoglobin Oxyhemoglobin Sodium Potassium Chloride Carbon Dioxide BUN Creatinine 0.4 L Glucose 130 H POC Glucose 133 H Uric Acid Calcium Phosphorus Magnesium Iron TIBC AST ALT Total Creatine Kinase CK-MB (CK-2) Troponin T NT-Pro-B Natriuret Pep Total Protein Albumin Triglycerides HDL Cholesterol Folate Urine WBC (Auto) Urine Creatinine Urine Total Protein Vancomycin Trough 07/02/19 07/02/19 07/02/19 05:54 13:27 13:39 WBC RBC Hgb Hct MCV MCH MCHC RDW Plt Count Lymph % (Auto) [place] % (Auto) Eos % (Auto) Lymph # [place] # Eos # Seg Neutrophils % Seg Neuts % (Manual) Lymphocytes % (Manual) Monocytes % (Manual) Eosinophils % (Manual) Nucleated RBC % Seg Neutrophils # Seg Neutrophils # Man Lymphocytes # (Manual) Monocytes # (Manual) Eosinophils # (Manual) PT INR APTT Fibrinogen POC ABG pH ABG pH POC ABG pCO2 POC ABG pO2 ABG pO2 ABG HCO3 ABG O2 Saturation ABG Base Excess ABG Hemoglobin Oxyhemoglobin Sodium Potassium Chloride Carbon Dioxide BUN Creatinine Glucose POC Glucose 111 H 123 H 116 H Uric Acid Calcium Phosphorus Magnesium Iron TIBC AST ALT Total Creatine Kinase CK-MB (CK-2) Troponin T NT-Pro-B Natriuret Pep Total Protein Albumin Triglycerides HDL Cholesterol Folate Urine WBC (Auto) Urine Creatinine Urine Total Protein Vancomycin Trough 07/02/19 07/03/19 07/04/19 18:00 06:06 12:15 WBC RBC Hgb Hct MCV MCH MCHC RDW Plt Count Lymph % (Auto) [place] % (Auto) Eos % (Auto) Lymph # [place] # Eos # Seg Neutrophils % Seg Neuts % (Manual) Lymphocytes % (Manual) Monocytes % (Manual) Eosinophils % (Manual) Nucleated RBC % Seg Neutrophils # Seg Neutrophils # Man Lymphocytes # (Manual) Monocytes # (Manual) Eosinophils # (Manual) PT INR APTT Fibrinogen POC ABG pH ABG pH POC ABG pCO2 POC ABG pO2 ABG pO2 ABG HCO3 ABG O2 Saturation ABG Base Excess ABG Hemoglobin Oxyhemoglobin Sodium Potassium Chloride Carbon Dioxide BUN Creatinine Glucose POC Glucose 118 H 127 H 122 H Uric Acid Calcium Phosphorus Magnesium Iron TIBC AST ALT Total Creatine Kinase CK-MB (CK-2) Troponin T NT-Pro-B Natriuret Pep Total Protein Albumin Triglycerides HDL Cholesterol Folate Urine WBC (Auto) Urine Creatinine Urine Total Protein Vancomycin Trough 07/04/19 07/04/19 07/05/19 18:09 23:48 06:30 WBC RBC Hgb Hct MCV MCH MCHC RDW Plt Count Lymph % (Auto) [place] % (Auto) Eos % (Auto) Lymph # [place] # Eos # Seg Neutrophils % Seg Neuts % (Manual) Lymphocytes % (Manual) Monocytes % (Manual) Eosinophils % (Manual) Nucleated RBC % Seg Neutrophils # Seg Neutrophils # Man Lymphocytes # (Manual) Monocytes # (Manual) Eosinophils # (Manual) PT INR APTT Fibrinogen POC ABG pH ABG pH POC ABG pCO2 POC ABG pO2 ABG pO2 ABG HCO3 ABG O2 Saturation ABG Base Excess ABG Hemoglobin Oxyhemoglobin Sodium Potassium Chloride Carbon Dioxide BUN Creatinine Glucose POC Glucose 115 H 110 H 106 H Uric Acid Calcium Phosphorus Magnesium Iron TIBC AST ALT Total Creatine Kinase CK-MB (CK-2) Troponin T NT-Pro-B Natriuret Pep Total Protein Albumin Triglycerides HDL Cholesterol Folate Urine WBC (Auto) Urine Creatinine Urine Total Protein Vancomycin Trough 07/05/19 07/05/19 07/05/19 11:55 18:16 23:38 WBC RBC Hgb Hct MCV MCH MCHC RDW Plt Count Lymph % (Auto) [place] % (Auto) Eos % (Auto) Lymph # [place] # Eos # Seg Neutrophils % Seg Neuts % (Manual) Lymphocytes % (Manual) Monocytes % (Manual) Eosinophils % (Manual) Nucleated RBC % Seg Neutrophils # Seg Neutrophils # Man Lymphocytes # (Manual) Monocytes # (Manual) Eosinophils # (Manual) PT INR APTT Fibrinogen POC ABG pH ABG pH POC ABG pCO2 POC ABG pO2 ABG pO2 ABG HCO3 ABG O2 Saturation ABG Base Excess ABG Hemoglobin Oxyhemoglobin Sodium Potassium Chloride Carbon Dioxide BUN Creatinine Glucose POC Glucose 106 H 120 H 114 H Uric Acid Calcium Phosphorus Magnesium Iron TIBC AST ALT Total Creatine Kinase CK-MB (CK-2) Troponin T NT-Pro-B Natriuret Pep Total Protein Albumin Triglycerides HDL Cholesterol Folate Urine WBC (Auto) Urine Creatinine Urine Total Protein Vancomycin Trough 07/06/19 07/06/19 07/06/19 06:01 12:28 18:49 WBC RBC Hgb Hct MCV MCH MCHC RDW Plt Count Lymph % (Auto) [place] % (Auto) Eos % (Auto) Lymph # [place] # Eos # Seg Neutrophils % Seg Neuts % (Manual) Lymphocytes % (Manual) Monocytes % (Manual) Eosinophils % (Manual) Nucleated RBC % Seg Neutrophils # Seg Neutrophils # Man Lymphocytes # (Manual) Monocytes # (Manual) Eosinophils # (Manual) PT INR APTT Fibrinogen POC ABG pH ABG pH POC ABG pCO2 POC ABG pO2 ABG pO2 ABG HCO3 ABG O2 Saturation ABG Base Excess ABG Hemoglobin Oxyhemoglobin Sodium Potassium Chloride Carbon Dioxide BUN Creatinine Glucose POC Glucose 115 H 114 H 111 H Uric Acid Calcium Phosphorus Magnesium Iron TIBC AST ALT Total Creatine Kinase CK-MB (CK-2) Troponin T NT-Pro-B Natriuret Pep Total Protein Albumin Triglycerides HDL Cholesterol Folate Urine WBC (Auto) Urine Creatinine Urine Total Protein Vancomycin Trough 07/07/19 07/07/19 07/07/19 05:34 11:57 23:54 WBC RBC Hgb Hct MCV MCH MCHC RDW Plt Count Lymph % (Auto) [place] % (Auto) Eos % (Auto) Lymph # [place] # Eos # Seg Neutrophils % Seg Neuts % (Manual) Lymphocytes % (Manual) Monocytes % (Manual) Eosinophils % (Manual) Nucleated RBC % Seg Neutrophils # Seg Neutrophils # Man Lymphocytes # (Manual) Monocytes # (Manual) Eosinophils # (Manual) PT INR APTT Fibrinogen POC ABG pH ABG pH POC ABG pCO2 POC ABG pO2 ABG pO2 ABG HCO3 ABG O2 Saturation ABG Base Excess ABG Hemoglobin Oxyhemoglobin Sodium Potassium Chloride Carbon Dioxide BUN Creatinine Glucose POC Glucose 121 H 135 H 109 H Uric Acid Calcium Phosphorus Magnesium Iron TIBC AST ALT Total Creatine Kinase CK-MB (CK-2) Troponin T NT-Pro-B Natriuret Pep Total Protein Albumin Triglycerides HDL Cholesterol Folate Urine WBC (Auto) Urine Creatinine Urine Total Protein Vancomycin Trough 07/08/19 07/08/19 07/09/19 04:00 04:00 12:13 WBC RBC 3.30 L Hgb 9.3 L Hct 29.0 L MCV MCH MCHC RDW 19.9 H Plt Count Lymph % (Auto) [place] % (Auto) Eos % (Auto) Lymph # [place] # Eos # Seg Neutrophils % Seg Neuts % (Manual) 76.0 H Lymphocytes % (Manual) Monocytes % (Manual) Eosinophils % (Manual) Nucleated RBC % Seg Neutrophils # Seg Neutrophils # Man 8.4 H Lymphocytes # (Manual) Monocytes # (Manual) Eosinophils # (Manual) PT INR APTT Fibrinogen POC ABG pH ABG pH POC ABG pCO2 POC ABG pO2 ABG pO2 ABG HCO3 ABG O2 Saturation ABG Base Excess ABG Hemoglobin Oxyhemoglobin Sodium Potassium Chloride Carbon Dioxide BUN Creatinine 0.5 L Glucose 117 H POC Glucose 111 H Uric Acid Calcium Phosphorus Magnesium Iron TIBC AST ALT Total Creatine Kinase CK-MB (CK-2) Troponin T NT-Pro-B Natriuret Pep Total Protein Albumin Triglycerides HDL Cholesterol Folate Urine WBC (Auto) Urine Creatinine Urine Total Protein Vancomycin Trough 07/10/19 07/10/19 07/10/19 05:28 12:22 17:19 WBC RBC Hgb Hct MCV MCH MCHC RDW Plt Count Lymph % (Auto) [place] % (Auto) Eos % (Auto) Lymph # [place] # Eos # Seg Neutrophils % Seg Neuts % (Manual) Lymphocytes % (Manual) Monocytes % (Manual) Eosinophils % (Manual) Nucleated RBC % Seg Neutrophils # Seg Neutrophils # Man Lymphocytes # (Manual) Monocytes # (Manual) Eosinophils # (Manual) PT INR APTT Fibrinogen POC ABG pH ABG pH POC ABG pCO2 POC ABG pO2 ABG pO2 ABG HCO3 ABG O2 Saturation ABG Base Excess ABG Hemoglobin Oxyhemoglobin Sodium Potassium Chloride Carbon Dioxide BUN Creatinine Glucose POC Glucose 114 H 113 H 115 H Uric Acid Calcium Phosphorus Magnesium Iron TIBC AST ALT Total Creatine Kinase CK-MB (CK-2) Troponin T NT-Pro-B Natriuret Pep Total Protein Albumin Triglycerides HDL Cholesterol Folate Urine WBC (Auto) Urine Creatinine Urine Total Protein Vancomycin Trough 07/11/19 07/11/19 07/11/19 05:27 06:08 06:08 WBC 12.6 H RBC 3.26 L Hgb 9.2 L Hct 28.6 L MCV MCH MCHC RDW 19.6 H Plt Count Lymph % (Auto) [place] % (Auto) Eos % (Auto) Lymph # [place] # Eos # Seg Neutrophils % Seg Neuts % (Manual) Lymphocytes % (Manual) Monocytes % (Manual) Eosinophils % (Manual) Nucleated RBC % Seg Neutrophils # Seg Neutrophils # Man Lymphocytes # (Manual) Monocytes # (Manual) Eosinophils # (Manual) PT INR APTT Fibrinogen POC ABG pH ABG pH POC ABG pCO2 POC ABG pO2 ABG pO2 ABG HCO3 ABG O2 Saturation ABG Base Excess ABG Hemoglobin Oxyhemoglobin Sodium Potassium Chloride Carbon Dioxide 17 L D BUN Creatinine Glucose 117 H POC Glucose 114 H Uric Acid Calcium Phosphorus Magnesium Iron TIBC AST ALT Total Creatine Kinase CK-MB (CK-2) Troponin T NT-Pro-B Natriuret Pep Total Protein Albumin Triglycerides HDL Cholesterol Folate Urine WBC (Auto) Urine Creatinine Urine Total Protein Vancomycin Trough 07/12/19 07/13/19 07/13/19 18:33 03:55 03:55 WBC 11.4 H RBC 3.18 L Hgb 8.8 L Hct 27.4 L MCV MCH MCHC RDW 19.1 H Plt Count Lymph % (Auto) [place] % (Auto) Eos % (Auto) Lymph # [place] # Eos # Seg Neutrophils % Seg Neuts % (Manual) Lymphocytes % (Manual) Monocytes % (Manual) Eosinophils % (Manual) Nucleated RBC % Seg Neutrophils # Seg Neutrophils # Man Lymphocytes # (Manual) Monocytes # (Manual) Eosinophils # (Manual) PT INR APTT Fibrinogen POC ABG pH ABG pH POC ABG pCO2 POC ABG pO2 ABG pO2 ABG HCO3 ABG O2 Saturation ABG Base Excess ABG Hemoglobin Oxyhemoglobin Sodium Potassium Chloride 97.4 L Carbon Dioxide BUN Creatinine 0.5 L Glucose 121 H POC Glucose 106 H Uric Acid Calcium Phosphorus Magnesium Iron TIBC AST ALT Total Creatine Kinase CK-MB (CK-2) Troponin T NT-Pro-B Natriuret Pep Total Protein Albumin Triglycerides HDL Cholesterol Folate Urine WBC (Auto) Urine Creatinine Urine Total Protein Vancomycin Trough 07/13/19 07/13/19 07/14/19 05:08 11:52 11:50 WBC RBC Hgb Hct MCV MCH MCHC RDW Plt Count Lymph % (Auto) [place] % (Auto) Eos % (Auto) Lymph # [place] # Eos # Seg Neutrophils % Seg Neuts % (Manual) Lymphocytes % (Manual) Monocytes % (Manual) Eosinophils % (Manual) Nucleated RBC % Seg Neutrophils # Seg Neutrophils # Man Lymphocytes # (Manual) Monocytes # (Manual) Eosinophils # (Manual) PT INR APTT Fibrinogen POC ABG pH ABG pH POC ABG pCO2 POC ABG pO2 ABG pO2 ABG HCO3 ABG O2 Saturation ABG Base Excess ABG Hemoglobin Oxyhemoglobin Sodium Potassium Chloride Carbon Dioxide BUN Creatinine Glucose POC Glucose 107 H 120 H 125 H Uric Acid Calcium Phosphorus Magnesium Iron TIBC AST ALT Total Creatine Kinase CK-MB (CK-2) Troponin T NT-Pro-B Natriuret Pep Total Protein Albumin Triglycerides HDL Cholesterol Folate Urine WBC (Auto) Urine Creatinine Urine Total Protein Vancomycin Trough 07/14/19 07/15/19 07/15/19 15:52 00:21 05:50 WBC RBC Hgb Hct MCV MCH MCHC RDW Plt Count Lymph % (Auto) [place] % (Auto) Eos % (Auto) Lymph # [place] # Eos # Seg Neutrophils % Seg Neuts % (Manual) Lymphocytes % (Manual) Monocytes % (Manual) Eosinophils % (Manual) Nucleated RBC % Seg Neutrophils # Seg Neutrophils # Man Lymphocytes # (Manual) Monocytes # (Manual) Eosinophils # (Manual) PT INR APTT Fibrinogen POC ABG pH ABG pH POC ABG pCO2 POC ABG pO2 ABG pO2 ABG HCO3 ABG O2 Saturation ABG Base Excess ABG Hemoglobin Oxyhemoglobin Sodium Potassium Chloride Carbon Dioxide BUN Creatinine Glucose POC Glucose 118 H 108 H 123 H Uric Acid Calcium Phosphorus Magnesium Iron TIBC AST ALT Total Creatine Kinase CK-MB (CK-2) Troponin T NT-Pro-B Natriuret Pep Total Protein Albumin Triglycerides HDL Cholesterol Folate Urine WBC (Auto) Urine Creatinine Urine Total Protein Vancomycin Trough 07/15/19 07/15/19 07/15/19 11:38 16:33 17:36 WBC RBC Hgb Hct MCV MCH MCHC RDW Plt Count Lymph % (Auto) [place] % (Auto) Eos % (Auto) Lymph # [place] # Eos # Seg Neutrophils % Seg Neuts % (Manual) Lymphocytes % (Manual) Monocytes % (Manual) Eosinophils % (Manual) Nucleated RBC % Seg Neutrophils # Seg Neutrophils # Man Lymphocytes # (Manual) Monocytes # (Manual) Eosinophils # (Manual) PT INR APTT Fibrinogen POC ABG pH ABG pH POC ABG pCO2 POC ABG pO2 ABG pO2 ABG HCO3 ABG O2 Saturation ABG Base Excess ABG Hemoglobin Oxyhemoglobin Sodium Potassium Chloride Carbon Dioxide BUN Creatinine Glucose POC Glucose 114 H 115 H 132 H Uric Acid Calcium Phosphorus Magnesium Iron TIBC AST ALT Total Creatine Kinase CK-MB (CK-2) Troponin T NT-Pro-B Natriuret Pep Total Protein Albumin Triglycerides HDL Cholesterol Folate Urine WBC (Auto) Urine Creatinine Urine Total Protein Vancomycin Trough 07/16/19 07/16/19 07/17/19 12:33 18:57 11:53 WBC RBC Hgb Hct MCV MCH MCHC RDW Plt Count Lymph % (Auto) [place] % (Auto) Eos % (Auto) Lymph # [place] # Eos # Seg Neutrophils % Seg Neuts % (Manual) Lymphocytes % (Manual) Monocytes % (Manual) Eosinophils % (Manual) Nucleated RBC % Seg Neutrophils # Seg Neutrophils # Man Lymphocytes # (Manual) Monocytes # (Manual) Eosinophils # (Manual) PT INR APTT Fibrinogen POC ABG pH ABG pH POC ABG pCO2 POC ABG pO2 ABG pO2 ABG HCO3 ABG O2 Saturation ABG Base Excess ABG Hemoglobin Oxyhemoglobin Sodium Potassium Chloride Carbon Dioxide BUN Creatinine Glucose POC Glucose 113 H 65 L 113 H Uric Acid Calcium Phosphorus Magnesium Iron TIBC AST ALT Total Creatine Kinase CK-MB (CK-2) Troponin T NT-Pro-B Natriuret Pep Total Protein Albumin Triglycerides HDL Cholesterol Folate Urine WBC (Auto) Urine Creatinine Urine Total Protein Vancomycin Trough 07/17/19 07/18/19 17:42 06:24 WBC RBC Hgb Hct MCV MCH MCHC RDW Plt Count Lymph % (Auto) [place] % (Auto) Eos % (Auto) Lymph # [place] # Eos # Seg Neutrophils % Seg Neuts % (Manual) Lymphocytes % (Manual) Monocytes % (Manual) Eosinophils % (Manual) Nucleated RBC % Seg Neutrophils # Seg Neutrophils # Man Lymphocytes # (Manual) Monocytes # (Manual) Eosinophils # (Manual) PT INR APTT Fibrinogen POC ABG pH ABG pH POC ABG pCO2 POC ABG pO2 ABG pO2 ABG HCO3 ABG O2 Saturation ABG Base Excess ABG Hemoglobin Oxyhemoglobin Sodium Potassium Chloride Carbon Dioxide BUN Creatinine Glucose POC Glucose 111 H 107 H Uric Acid Calcium Phosphorus Magnesium Iron TIBC AST ALT Total Creatine Kinase CK-MB (CK-2) Troponin T NT-Pro-B Natriuret Pep Total Protein Albumin Triglycerides HDL Cholesterol Folate Urine WBC (Auto) Urine Creatinine Urine Total Protein Vancomycin Trough
--- NOTE | 2019-07-18 14:11 | Progress Note ---
Subjective Date of service: 07/18/19 Principal diagnosis: anemia - LOw PLT Interval history: neuro follow up very little difference patient sleeping othwise little change will folloe closely thanks Objective - Vital Sign Vital Signs - 12hr 07/18/19 07/18/19 07/18/19 03:26 04:00 04:01 Temperature 100.3 F H Pulse Rate 94 H 100 H Pulse Rate [ 97 H From Monitor] Respiratory 19 25 H Rate Blood Pressure 138/81 O2 Sat by Pulse 99 98 Oximetry O2 Sat by Pulse Oximetry [ Assessment] 07/18/19 07/18/19 07/18/19 06:01 07:50 08:00 Temperature 98.8 F Pulse Rate 102 H 92 H Pulse Rate [ 92 H From Monitor] Respiratory 21 Rate Blood Pressure 149/97 O2 Sat by Pulse 99 99 96 Oximetry O2 Sat by Pulse 99 Oximetry [ Assessment] 07/18/19 07/18/19 09:32 12:00 Temperature 98.6 F Pulse Rate 97 H Pulse Rate [ From Monitor] Respiratory Rate Blood Pressure 99/50 O2 Sat by Pulse Oximetry O2 Sat by Pulse Oximetry [ Assessment] - Laboratory Findings CBC and BMP: 07/13/19 03:55 07/13/19 03:55 Abnormal Lab Findings: Abnormal Labs 05/01/19 05/01/19 05/01/19 17:50 19:26 22:36 WBC RBC Hgb Hct MCV MCH MCHC RDW Plt Count Lymph % (Auto) [place] % (Auto) Eos % (Auto) Lymph # [place] # Eos # Seg Neutrophils % Seg Neuts % (Manual) Lymphocytes % (Manual) Monocytes % (Manual) Eosinophils % (Manual) Nucleated RBC % Seg Neutrophils # Seg Neutrophils # Man Lymphocytes # (Manual) Monocytes # (Manual) Eosinophils # (Manual) PT INR APTT Fibrinogen POC ABG pH 7.272 L 7.331 L ABG pH POC ABG pCO2 52.8 H POC ABG pO2 ABG pO2 ABG HCO3 ABG O2 Saturation ABG Base Excess ABG Hemoglobin Oxyhemoglobin Sodium 136 L Potassium 6.5 H* Chloride 97.2 L Carbon Dioxide BUN 60 H Creatinine Glucose 113 H POC Glucose Uric Acid Calcium Phosphorus Magnesium 2.40 H Iron TIBC AST 139 H ALT 154 H Total Creatine Kinase CK-MB (CK-2) Troponin T NT-Pro-B Natriuret Pep Total Protein Albumin 3.8 L Triglycerides HDL Cholesterol Folate Urine WBC (Auto) Urine Creatinine Urine Total Protein Vancomycin Trough 05/01/19 05/01/19 05/01/19 Unknown Unknown Unknown WBC 16.1 H RBC Hgb Hct MCV MCH MCHC RDW 17.2 H Plt Count Lymph % (Auto) [place] % (Auto) 9.6 H Eos % (Auto) Lymph # [place] # 1.5 H Eos # Seg Neutrophils % 73.0 H Seg Neuts % (Manual) Lymphocytes % (Manual) Monocytes % (Manual) Eosinophils % (Manual) Nucleated RBC % Seg Neutrophils # 11.7 H Seg Neutrophils # Man Lymphocytes # (Manual) Monocytes # (Manual) Eosinophils # (Manual) PT 15.4 H INR 1.23 H APTT 22.7 L Fibrinogen POC ABG pH ABG pH POC ABG pCO2 POC ABG pO2 ABG pO2 ABG HCO3 ABG O2 Saturation ABG Base Excess ABG Hemoglobin Oxyhemoglobin Sodium Potassium Chloride Carbon Dioxide BUN Creatinine Glucose POC Glucose Uric Acid Calcium Phosphorus Magnesium Iron TIBC AST ALT Total Creatine Kinase CK-MB (CK-2) Troponin T NT-Pro-B Natriuret Pep 6831 H Total Protein Albumin Triglycerides HDL Cholesterol Folate Urine WBC (Auto) Urine Creatinine Urine Total Protein Vancomycin Trough 05/01/19 05/02/19 05/02/19 Unknown 00:06 00:06 WBC RBC Hgb Hct MCV MCH MCHC RDW Plt Count Lymph % (Auto) [place] % (Auto) Eos % (Auto) Lymph # [place] # Eos # Seg Neutrophils % Seg Neuts % (Manual) Lymphocytes % (Manual) Monocytes % (Manual) Eosinophils % (Manual) Nucleated RBC % Seg Neutrophils # Seg Neutrophils # Man Lymphocytes # (Manual) Monocytes # (Manual) Eosinophils # (Manual) PT INR APTT Fibrinogen POC ABG pH ABG pH POC ABG pCO2 POC ABG pO2 ABG pO2 ABG HCO3 ABG O2 Saturation ABG Base Excess ABG Hemoglobin Oxyhemoglobin Sodium Potassium Chloride Carbon Dioxide BUN Creatinine Glucose POC Glucose Uric Acid Calcium Phosphorus 4.90 H Magnesium Iron TIBC AST ALT Total Creatine Kinase 226 H CK-MB (CK-2) 5.7 H Troponin T 0.044 H NT-Pro-B Natriuret Pep Total Protein Albumin Triglycerides 182 H HDL Cholesterol 18 L Folate Urine WBC (Auto) Urine Creatinine Urine Total Protein Vancomycin Trough 05/02/19 05/02/19 05/02/19 02:08 04:40 04:41 WBC 17.6 H RBC Hgb Hct MCV MCH 27 L MCHC RDW 17.4 H Plt Count Lymph % (Auto) 10.2 L [place] % (Auto) 11.0 H Eos % (Auto) Lymph # [place] # 1.9 H Eos # Seg Neutrophils % 78.0 H Seg Neuts % (Manual) Lymphocytes % (Manual) Monocytes % (Manual) Eosinophils % (Manual) Nucleated RBC % Seg Neutrophils # 13.8 H Seg Neutrophils # Man Lymphocytes # (Manual) Monocytes # (Manual) Eosinophils # (Manual) PT INR APTT Fibrinogen POC ABG pH ABG pH POC ABG pCO2 46.8 H POC ABG pO2 63 L ABG pO2 ABG HCO3 ABG O2 Saturation ABG Base Excess ABG Hemoglobin Oxyhemoglobin Sodium Potassium Chloride 96.3 L Carbon Dioxide BUN 63 H Creatinine 1.7 H Glucose POC Glucose Uric Acid Calcium Phosphorus Magnesium Iron TIBC AST ALT Total Creatine Kinase CK-MB (CK-2) Troponin T NT-Pro-B Natriuret Pep Total Protein Albumin Triglycerides HDL Cholesterol Folate Urine WBC (Auto) Urine Creatinine Urine Total Protein Vancomycin Trough 05/02/19 05/02/19 05/02/19 04:41 04:41 16:05 WBC RBC Hgb Hct MCV MCH MCHC RDW Plt Count Lymph % (Auto) [place] % (Auto) Eos % (Auto) Lymph # [place] # Eos # Seg Neutrophils % Seg Neuts % (Manual) Lymphocytes % (Manual) Monocytes % (Manual) Eosinophils % (Manual) Nucleated RBC % Seg Neutrophils # Seg Neutrophils # Man Lymphocytes # (Manual) Monocytes # (Manual) Eosinophils # (Manual) PT INR APTT Fibrinogen POC ABG pH ABG pH POC ABG pCO2 POC ABG pO2 ABG pO2 66.6 L ABG HCO3 31.9 H ABG O2 Saturation 92.5 L ABG Base Excess 5.8 H ABG Hemoglobin 13.3 L Oxyhemoglobin 90.6 L Sodium Potassium Chloride 97.2 L Carbon Dioxide BUN 61 H Creatinine 1.8 H Glucose POC Glucose Uric Acid Calcium Phosphorus Magnesium Iron TIBC AST ALT Total Creatine Kinase CK-MB (CK-2) 5.2 H Troponin T 0.067 H D NT-Pro-B Natriuret Pep Total Protein Albumin Triglycerides HDL Cholesterol Folate Urine WBC (Auto) Urine Creatinine Urine Total Protein Vancomycin Trough 05/02/19 05/03/19 05/03/19 20:39 04:35 05:05 WBC 11.8 H RBC Hgb Hct MCV MCH 27 L MCHC 31 L RDW 17.2 H Plt Count Lymph % (Auto) [place] % (Auto) Eos % (Auto) Lymph # [place] # Eos # Seg Neutrophils % Seg Neuts % (Manual) Lymphocytes % (Manual) Monocytes % (Manual) Eosinophils % (Manual) Nucleated RBC % Seg Neutrophils # Seg Neutrophils # Man Lymphocytes # (Manual) Monocytes # (Manual) Eosinophils # (Manual) PT INR APTT Fibrinogen POC ABG pH ABG pH POC ABG pCO2 53.6 H 54.0 H POC ABG pO2 55 L 63 L ABG pO2 ABG HCO3 ABG O2 Saturation ABG Base Excess ABG Hemoglobin Oxyhemoglobin Sodium Potassium Chloride Carbon Dioxide BUN Creatinine Glucose POC Glucose Uric Acid Calcium Phosphorus Magnesium Iron TIBC AST ALT Total Creatine Kinase CK-MB (CK-2) Troponin T NT-Pro-B Natriuret Pep Total Protein Albumin Triglycerides HDL Cholesterol Folate Urine WBC (Auto) Urine Creatinine Urine Total Protein Vancomycin Trough 05/03/19 05/03/19 05/03/19 05:05 10:55 16:48 WBC RBC Hgb Hct MCV MCH MCHC RDW Plt Count Lymph % (Auto) [place] % (Auto) Eos % (Auto) Lymph # [place] # Eos # Seg Neutrophils % Seg Neuts % (Manual) Lymphocytes % (Manual) Monocytes % (Manual) Eosinophils % (Manual) Nucleated RBC % Seg Neutrophils # Seg Neutrophils # Man Lymphocytes # (Manual) Monocytes # (Manual) Eosinophils # (Manual) PT INR APTT Fibrinogen POC ABG pH 7.604 H ABG pH POC ABG pCO2 POC ABG pO2 58 L ABG pO2 ABG HCO3 ABG O2 Saturation ABG Base Excess ABG Hemoglobin Oxyhemoglobin Sodium Potassium Chloride Carbon Dioxide BUN 52 H Creatinine 1.9 H Glucose 103 H POC Glucose Uric Acid Calcium Phosphorus Magnesium Iron TIBC AST ALT Total Creatine Kinase CK-MB (CK-2) Troponin T NT-Pro-B Natriuret Pep Total Protein Albumin Triglycerides HDL Cholesterol Folate Urine WBC (Auto) 33.0 H Urine Creatinine Urine Total Protein Vancomycin Trough 05/04/19 05/04/19 05/04/19 04:49 06:50 06:50 WBC 16.0 H RBC Hgb Hct MCV MCH 27 L MCHC 31 L RDW 17.8 H Plt Count Lymph % (Auto) [place] % (Auto) Eos % (Auto) Lymph # [place] # Eos # Seg Neutrophils % Seg Neuts % (Manual) Lymphocytes % (Manual) Monocytes % (Manual) Eosinophils % (Manual) Nucleated RBC % Seg Neutrophils # Seg Neutrophils # Man Lymphocytes # (Manual) Monocytes # (Manual) Eosinophils # (Manual) PT INR APTT Fibrinogen POC ABG pH 7.273 L ABG pH POC ABG pCO2 POC ABG pO2 ABG pO2 ABG HCO3 ABG O2 Saturation ABG Base Excess ABG Hemoglobin Oxyhemoglobin Sodium 148 H Potassium 5.5 H Chloride Carbon Dioxide BUN 53 H Creatinine 3.3 H D Glucose 106 H POC Glucose Uric Acid Calcium 8.3 L Phosphorus Magnesium Iron TIBC AST ALT Total Creatine Kinase CK-MB (CK-2) Troponin T NT-Pro-B Natriuret Pep Total Protein Albumin Triglycerides HDL Cholesterol Folate Urine WBC (Auto) Urine Creatinine Urine Total Protein Vancomycin Trough 05/05/19 05/05/19 05/05/19 00:05 04:30 05:00 WBC RBC Hgb Hct MCV MCH MCHC RDW Plt Count Lymph % (Auto) [place] % (Auto) Eos % (Auto) Lymph # [place] # Eos # Seg Neutrophils % Seg Neuts % (Manual) Lymphocytes % (Manual) Monocytes % (Manual) Eosinophils % (Manual) Nucleated RBC % Seg Neutrophils # Seg Neutrophils # Man Lymphocytes # (Manual) Monocytes # (Manual) Eosinophils # (Manual) PT INR APTT Fibrinogen POC ABG pH 7.225 L ABG pH POC ABG pCO2 > 70 H POC ABG pO2 ABG pO2 ABG HCO3 ABG O2 Saturation ABG Base Excess ABG Hemoglobin Oxyhemoglobin Sodium 151 H Potassium 5.1 H Chloride Carbon Dioxide BUN 64 H Creatinine 3.5 H Glucose 117 H POC Glucose 141 H Uric Acid Calcium 7.5 L Phosphorus Magnesium Iron TIBC AST 93 H ALT 65 H Total Creatine Kinase CK-MB (CK-2) Troponin T NT-Pro-B Natriuret Pep Total Protein Albumin 2.9 L Triglycerides HDL Cholesterol Folate Urine WBC (Auto) Urine Creatinine Urine Total Protein Vancomycin Trough 05/05/19 05/05/19 05/05/19 05:00 12:02 17:46 WBC 12.0 H RBC Hgb 11.3 L Hct MCV MCH 27 L MCHC 30 L RDW 18.4 H Plt Count Lymph % (Auto) 7.9 L [place] % (Auto) 10.2 H Eos % (Auto) Lymph # 1.0 L [place] # 1.2 H Eos # Seg Neutrophils % 80.8 H Seg Neuts % (Manual) Lymphocytes % (Manual) Monocytes % (Manual) Eosinophils % (Manual) Nucleated RBC % Seg Neutrophils # 9.7 H Seg Neutrophils # Man Lymphocytes # (Manual) Monocytes # (Manual) Eosinophils # (Manual) PT INR APTT Fibrinogen POC ABG pH ABG pH POC ABG pCO2 POC ABG pO2 ABG pO2 ABG HCO3 ABG O2 Saturation ABG Base Excess ABG Hemoglobin Oxyhemoglobin Sodium Potassium Chloride Carbon Dioxide BUN Creatinine Glucose POC Glucose 125 H 112 H Uric Acid Calcium Phosphorus Magnesium Iron TIBC AST ALT Total Creatine Kinase CK-MB (CK-2) Troponin T NT-Pro-B Natriuret Pep Total Protein Albumin Triglycerides HDL Cholesterol Folate Urine WBC (Auto) Urine Creatinine Urine Total Protein Vancomycin Trough 05/05/19 05/06/19 05/06/19 23:42 03:58 04:45 WBC 11.4 H RBC Hgb 10.7 L Hct 34.2 L MCV MCH 27 L MCHC 31 L RDW 16.9 H Plt Count Lymph % (Auto) [place] % (Auto) Eos % (Auto) Lymph # [place] # Eos # Seg Neutrophils % Seg Neuts % (Manual) Lymphocytes % (Manual) Monocytes % (Manual) Eosinophils % (Manual) Nucleated RBC % Seg Neutrophils # Seg Neutrophils # Man Lymphocytes # (Manual) Monocytes # (Manual) Eosinophils # (Manual) PT INR APTT Fibrinogen POC ABG pH ABG pH POC ABG pCO2 62.4 H POC ABG pO2 111 H ABG pO2 ABG HCO3 ABG O2 Saturation ABG Base Excess ABG Hemoglobin Oxyhemoglobin Sodium Potassium Chloride Carbon Dioxide BUN Creatinine Glucose POC Glucose 128 H Uric Acid Calcium Phosphorus Magnesium Iron TIBC AST ALT Total Creatine Kinase CK-MB (CK-2) Troponin T NT-Pro-B Natriuret Pep Total Protein Albumin Triglycerides HDL Cholesterol Folate Urine WBC (Auto) Urine Creatinine Urine Total Protein Vancomycin Trough 05/06/19 05/06/19 05/06/19 04:45 05:33 12:30 WBC RBC Hgb Hct MCV MCH MCHC RDW Plt Count Lymph % (Auto) [place] % (Auto) Eos % (Auto) Lymph # [place] # Eos # Seg Neutrophils % Seg Neuts % (Manual) Lymphocytes % (Manual) Monocytes % (Manual) Eosinophils % (Manual) Nucleated RBC % Seg Neutrophils # Seg Neutrophils # Man Lymphocytes # (Manual) Monocytes # (Manual) Eosinophils # (Manual) PT INR APTT Fibrinogen POC ABG pH ABG pH POC ABG pCO2 POC ABG pO2 ABG pO2 ABG HCO3 ABG O2 Saturation ABG Base Excess ABG Hemoglobin Oxyhemoglobin Sodium 149 H Potassium Chloride Carbon Dioxide 31 H BUN 67 H Creatinine 3.2 H Glucose 125 H POC Glucose 117 H 116 H Uric Acid Calcium 7.5 L Phosphorus Magnesium Iron TIBC AST ALT Total Creatine Kinase CK-MB (CK-2) Troponin T NT-Pro-B Natriuret Pep Total Protein Albumin Triglycerides HDL Cholesterol Folate Urine WBC (Auto) Urine Creatinine Urine Total Protein Vancomycin Trough 05/06/19 05/06/19 05/07/19 18:34 23:16 05:22 WBC RBC Hgb Hct MCV MCH MCHC RDW Plt Count Lymph % (Auto) [place] % (Auto) Eos % (Auto) Lymph # [place] # Eos # Seg Neutrophils % Seg Neuts % (Manual) Lymphocytes % (Manual) Monocytes % (Manual) Eosinophils % (Manual) Nucleated RBC % Seg Neutrophils # Seg Neutrophils # Man Lymphocytes # (Manual) Monocytes # (Manual) Eosinophils # (Manual) PT INR APTT Fibrinogen POC ABG pH ABG pH POC ABG pCO2 POC ABG pO2 ABG pO2 ABG HCO3 ABG O2 Saturation ABG Base Excess ABG Hemoglobin Oxyhemoglobin Sodium Potassium Chloride Carbon Dioxide BUN Creatinine Glucose POC Glucose 128 H 143 H 166 H Uric Acid Calcium Phosphorus Magnesium Iron TIBC AST ALT Total Creatine Kinase CK-MB (CK-2) Troponin T NT-Pro-B Natriuret Pep Total Protein Albumin Triglycerides HDL Cholesterol Folate Urine WBC (Auto) Urine Creatinine Urine Total Protein Vancomycin Trough 05/07/19 05/07/19 05/07/19 06:33 07:03 09:35 WBC RBC Hgb Hct MCV MCH MCHC RDW Plt Count Lymph % (Auto) [place] % (Auto) Eos % (Auto) Lymph # [place] # Eos # Seg Neutrophils % Seg Neuts % (Manual) Lymphocytes % (Manual) Monocytes % (Manual) Eosinophils % (Manual) Nucleated RBC % Seg Neutrophils # Seg Neutrophils # Man Lymphocytes # (Manual) Monocytes # (Manual) Eosinophils # (Manual) PT INR APTT Fibrinogen POC ABG pH 7.263 L 7.288 L ABG pH POC ABG pCO2 POC ABG pO2 51 L 56 L ABG pO2 ABG HCO3 ABG O2 Saturation ABG Base Excess ABG Hemoglobin Oxyhemoglobin Sodium Potassium Chloride Carbon Dioxide BUN 76 H Creatinine 3.2 H Glucose 147 H POC Glucose Uric Acid Calcium 7.9 L Phosphorus Magnesium Iron TIBC AST ALT Total Creatine Kinase CK-MB (CK-2) Troponin T NT-Pro-B Natriuret Pep Total Protein Albumin Triglycerides HDL Cholesterol Folate Urine WBC (Auto) Urine Creatinine Urine Total Protein Vancomycin Trough 05/07/19 05/07/19 05/07/19 09:35 12:17 13:45 WBC 13.4 H RBC Hgb 11.6 L Hct MCV MCH 27 L MCHC 31 L RDW 17.5 H Plt Count Lymph % (Auto) [place] % (Auto) Eos % (Auto) Lymph # [place] # Eos # Seg Neutrophils % Seg Neuts % (Manual) Lymphocytes % (Manual) Monocytes % (Manual) Eosinophils % (Manual) Nucleated RBC % Seg Neutrophils # Seg Neutrophils # Man Lymphocytes # (Manual) Monocytes # (Manual) Eosinophils # (Manual) PT INR APTT Fibrinogen POC ABG pH ABG pH POC ABG pCO2 POC ABG pO2 ABG pO2 ABG HCO3 ABG O2 Saturation ABG Base Excess ABG Hemoglobin Oxyhemoglobin Sodium Potassium Chloride Carbon Dioxide BUN Creatinine Glucose POC Glucose 130 H Uric Acid 18.0 H Calcium Phosphorus Magnesium Iron TIBC AST ALT Total Creatine Kinase CK-MB (CK-2) Troponin T NT-Pro-B Natriuret Pep Total Protein Albumin Triglycerides HDL Cholesterol Folate Urine WBC (Auto) Urine Creatinine Urine Total Protein Vancomycin Trough 05/07/19 05/07/19 05/08/19 17:39 22:40 05:06 WBC RBC Hgb Hct MCV MCH MCHC RDW Plt Count Lymph % (Auto) [place] % (Auto) Eos % (Auto) Lymph # [place] # Eos # Seg Neutrophils % Seg Neuts % (Manual) Lymphocytes % (Manual) Monocytes % (Manual) Eosinophils % (Manual) Nucleated RBC % Seg Neutrophils # Seg Neutrophils # Man Lymphocytes # (Manual) Monocytes # (Manual) Eosinophils # (Manual) PT INR APTT Fibrinogen POC ABG pH ABG pH POC ABG pCO2 POC ABG pO2 ABG pO2 ABG HCO3 ABG O2 Saturation ABG Base Excess ABG Hemoglobin Oxyhemoglobin Sodium Potassium Chloride Carbon Dioxide BUN Creatinine Glucose POC Glucose 116 H 148 H Uric Acid Calcium Phosphorus Magnesium Iron TIBC AST ALT Total Creatine Kinase CK-MB (CK-2) Troponin T NT-Pro-B Natriuret Pep Total Protein Albumin Triglycerides HDL Cholesterol Folate Urine WBC (Auto) Urine Creatinine 292.8 H Urine Total Protein 269 H Vancomycin Trough 05/08/19 05/08/19 05/08/19 05:32 11:28 13:48 WBC RBC Hgb Hct MCV MCH MCHC RDW Plt Count Lymph % (Auto) [place] % (Auto) Eos % (Auto) Lymph # [place] # Eos # Seg Neutrophils % Seg Neuts % (Manual) Lymphocytes % (Manual) Monocytes % (Manual) Eosinophils % (Manual) Nucleated RBC % Seg Neutrophils # Seg Neutrophils # Man Lymphocytes # (Manual) Monocytes # (Manual) Eosinophils # (Manual) PT INR APTT Fibrinogen POC ABG pH ABG pH POC ABG pCO2 45.4 H POC ABG pO2 64 L ABG pO2 ABG HCO3 ABG O2 Saturation ABG Base Excess ABG Hemoglobin Oxyhemoglobin Sodium Potassium Chloride Carbon Dioxide BUN 73 H Creatinine 2.7 H Glucose 127 H POC Glucose 107 H Uric Acid Calcium 7.6 L Phosphorus Magnesium Iron TIBC AST ALT Total Creatine Kinase CK-MB (CK-2) Troponin T NT-Pro-B Natriuret Pep Total Protein Albumin Triglycerides HDL Cholesterol Folate Urine WBC (Auto) Urine Creatinine Urine Total Protein Vancomycin Trough 05/08/19 05/09/19 05/09/19 17:48 04:50 04:53 WBC RBC 3.07 L Hgb 8.5 L D Hct 29.3 L D MCV 96 H MCH MCHC 29 L RDW 18.1 H Plt Count Lymph % (Auto) [place] % (Auto) Eos % (Auto) Lymph # [place] # Eos # Seg Neutrophils % Seg Neuts % (Manual) Lymphocytes % (Manual) Monocytes % (Manual) Eosinophils % (Manual) Nucleated RBC % Seg Neutrophils # Seg Neutrophils # Man Lymphocytes # (Manual) Monocytes # (Manual) Eosinophils # (Manual) PT INR APTT Fibrinogen POC ABG pH 7.316 L ABG pH POC ABG pCO2 66.0 H POC ABG pO2 69 L ABG pO2 ABG HCO3 ABG O2 Saturation ABG Base Excess ABG Hemoglobin Oxyhemoglobin Sodium Potassium Chloride Carbon Dioxide BUN Creatinine Glucose POC Glucose 155 H Uric Acid Calcium Phosphorus Magnesium Iron TIBC AST ALT Total Creatine Kinase CK-MB (CK-2) Troponin T NT-Pro-B Natriuret Pep Total Protein Albumin Triglycerides HDL Cholesterol Folate Urine WBC (Auto) Urine Creatinine Urine Total Protein Vancomycin Trough 05/09/19 05/09/19 05/09/19 05:46 07:24 12:10 WBC RBC Hgb Hct MCV MCH MCHC RDW Plt Count Lymph % (Auto) [place] % (Auto) Eos % (Auto) Lymph # [place] # Eos # Seg Neutrophils % Seg Neuts % (Manual) Lymphocytes % (Manual) Monocytes % (Manual) Eosinophils % (Manual) Nucleated RBC % Seg Neutrophils # Seg Neutrophils # Man Lymphocytes # (Manual) Monocytes # (Manual) Eosinophils # (Manual) PT INR APTT Fibrinogen POC ABG pH ABG pH POC ABG pCO2 POC ABG pO2 ABG pO2 ABG HCO3 ABG O2 Saturation ABG Base Excess ABG Hemoglobin Oxyhemoglobin Sodium Potassium Chloride Carbon Dioxide BUN 73 H Creatinine 2.4 H Glucose 153 H POC Glucose 123 H 148 H Uric Acid Calcium 8.2 L Phosphorus Magnesium Iron TIBC AST 45 H ALT Total Creatine Kinase CK-MB (CK-2) Troponin T NT-Pro-B Natriuret Pep Total Protein 6.0 L Albumin 1.9 L Triglycerides HDL Cholesterol Folate Urine WBC (Auto) Urine Creatinine Urine Total Protein Vancomycin Trough 05/09/19 05/09/19 05/10/19 18:23 23:26 04:52 WBC RBC Hgb Hct MCV MCH MCHC RDW Plt Count Lymph % (Auto) [place] % (Auto) Eos % (Auto) Lymph # [place] # Eos # Seg Neutrophils % Seg Neuts % (Manual) Lymphocytes % (Manual) Monocytes % (Manual) Eosinophils % (Manual) Nucleated RBC % Seg Neutrophils # Seg Neutrophils # Man Lymphocytes # (Manual) Monocytes # (Manual) Eosinophils # (Manual) PT INR APTT Fibrinogen POC ABG pH 7.305 L ABG pH POC ABG pCO2 62.6 H POC ABG pO2 ABG pO2 ABG HCO3 ABG O2 Saturation ABG Base Excess ABG Hemoglobin Oxyhemoglobin Sodium Potassium Chloride Carbon Dioxide BUN Creatinine Glucose POC Glucose 147 H 121 H Uric Acid Calcium Phosphorus Magnesium Iron TIBC AST ALT Total Creatine Kinase CK-MB (CK-2) Troponin T NT-Pro-B Natriuret Pep Total Protein Albumin Triglycerides HDL Cholesterol Folate Urine WBC (Auto) Urine Creatinine Urine Total Protein Vancomycin Trough 05/10/19 05/10/19 05/10/19 05:00 05:00 05:50 WBC RBC Hgb 10.3 L Hct 33.7 L MCV MCH 27 L MCHC 31 L RDW 17.0 H Plt Count Lymph % (Auto) [place] % (Auto) Eos % (Auto) Lymph # [place] # Eos # Seg Neutrophils % Seg Neuts % (Manual) Lymphocytes % (Manual) Monocytes % (Manual) Eosinophils % (Manual) Nucleated RBC % Seg Neutrophils # Seg Neutrophils # Man Lymphocytes # (Manual) Monocytes # (Manual) Eosinophils # (Manual) PT INR APTT Fibrinogen POC ABG pH ABG pH POC ABG pCO2 POC ABG pO2 ABG pO2 ABG HCO3 ABG O2 Saturation ABG Base Excess ABG Hemoglobin Oxyhemoglobin Sodium 147 H Potassium Chloride Carbon Dioxide BUN 70 H Creatinine 2.6 H Glucose 155 H POC Glucose 158 H Uric Acid Calcium 8.2 L Phosphorus Magnesium Iron TIBC AST ALT Total Creatine Kinase CK-MB (CK-2) Troponin T NT-Pro-B Natriuret Pep Total Protein 6.1 L Albumin 2.5 L Triglycerides HDL Cholesterol Folate Urine WBC (Auto) Urine Creatinine Urine Total Protein Vancomycin Trough 05/10/19 05/11/19 05/11/19 13:14 07:26 11:40 WBC RBC Hgb Hct MCV MCH MCHC RDW Plt Count Lymph % (Auto) [place] % (Auto) Eos % (Auto) Lymph # [place] # Eos # Seg Neutrophils % Seg Neuts % (Manual) Lymphocytes % (Manual) Monocytes % (Manual) Eosinophils % (Manual) Nucleated RBC % Seg Neutrophils # Seg Neutrophils # Man Lymphocytes # (Manual) Monocytes # (Manual) Eosinophils # (Manual) PT INR APTT Fibrinogen POC ABG pH ABG pH POC ABG pCO2 48.0 H POC ABG pO2 58 L ABG pO2 ABG HCO3 ABG O2 Saturation ABG Base Excess ABG Hemoglobin Oxyhemoglobin Sodium 147 H Potassium Chloride 107.2 H Carbon Dioxide BUN 67 H Creatinine 2.6 H Glucose 121 H POC Glucose 159 H Uric Acid Calcium Phosphorus Magnesium Iron TIBC AST ALT Total Creatine Kinase CK-MB (CK-2) Troponin T NT-Pro-B Natriuret Pep Total Protein Albumin Triglycerides HDL Cholesterol Folate Urine WBC (Auto) Urine Creatinine Urine Total Protein Vancomycin Trough 05/11/19 05/11/19 05/12/19 18:13 23:46 04:40 WBC RBC Hgb Hct MCV MCH MCHC RDW Plt Count Lymph % (Auto) [place] % (Auto) Eos % (Auto) Lymph # [place] # Eos # Seg Neutrophils % Seg Neuts % (Manual) Lymphocytes % (Manual) Monocytes % (Manual) Eosinophils % (Manual) Nucleated RBC % Seg Neutrophils # Seg Neutrophils # Man Lymphocytes # (Manual) Monocytes # (Manual) Eosinophils # (Manual) PT INR APTT Fibrinogen POC ABG pH ABG pH 7.264 L POC ABG pCO2 POC ABG pO2 ABG pO2 66.8 L ABG HCO3 31.0 H ABG O2 Saturation 92.0 L ABG Base Excess ABG Hemoglobin 10.3 L Oxyhemoglobin 90.1 L Sodium Potassium Chloride Carbon Dioxide BUN Creatinine Glucose POC Glucose 120 H 121 H Uric Acid Calcium Phosphorus Magnesium Iron TIBC AST ALT Total Creatine Kinase CK-MB (CK-2) Troponin T NT-Pro-B Natriuret Pep Total Protein Albumin Triglycerides HDL Cholesterol Folate Urine WBC (Auto) Urine Creatinine Urine Total Protein Vancomycin Trough 05/12/19 05/12/19 05/12/19 04:45 04:45 11:14 WBC RBC Hgb 10.2 L Hct 32.4 L MCV MCH MCHC 31 L RDW 17.2 H Plt Count Lymph % (Auto) [place] % (Auto) Eos % (Auto) Lymph # [place] # Eos # Seg Neutrophils % Seg Neuts % (Manual) Lymphocytes % (Manual) Monocytes % (Manual) Eosinophils % (Manual) Nucleated RBC % Seg Neutrophils # Seg Neutrophils # Man Lymphocytes # (Manual) Monocytes # (Manual) Eosinophils # (Manual) PT INR APTT Fibrinogen POC ABG pH 7.284 L ABG pH POC ABG pCO2 67.8 H POC ABG pO2 ABG pO2 ABG HCO3 ABG O2 Saturation ABG Base Excess ABG Hemoglobin Oxyhemoglobin Sodium Potassium Chloride Carbon Dioxide BUN 63 H Creatinine 2.4 H Glucose 110 H POC Glucose Uric Acid Calcium Phosphorus Magnesium Iron TIBC AST ALT Total Creatine Kinase CK-MB (CK-2) Troponin T NT-Pro-B Natriuret Pep Total Protein Albumin Triglycerides HDL Cholesterol Folate Urine WBC (Auto) Urine Creatinine Urine Total Protein Vancomycin Trough 05/12/19 05/12/19 05/13/19 11:44 23:11 04:30 WBC RBC Hgb Hct MCV MCH MCHC RDW Plt Count Lymph % (Auto) [place] % (Auto) Eos % (Auto) Lymph # [place] # Eos # Seg Neutrophils % Seg Neuts % (Manual) Lymphocytes % (Manual) Monocytes % (Manual) Eosinophils % (Manual) Nucleated RBC % Seg Neutrophils # Seg Neutrophils # Man Lymphocytes # (Manual) Monocytes # (Manual) Eosinophils # (Manual) PT INR APTT Fibrinogen POC ABG pH ABG pH 7.288 L POC ABG pCO2 POC ABG pO2 ABG pO2 109.7 H ABG HCO3 30.9 H ABG O2 Saturation ABG Base Excess 3.2 H ABG Hemoglobin 9.6 L Oxyhemoglobin Sodium Potassium Chloride Carbon Dioxide BUN Creatinine Glucose POC Glucose 126 H 147 H Uric Acid Calcium Phosphorus Magnesium Iron TIBC AST ALT Total Creatine Kinase CK-MB (CK-2) Troponin T NT-Pro-B Natriuret Pep Total Protein Albumin Triglycerides HDL Cholesterol Folate Urine WBC (Auto) Urine Creatinine Urine Total Protein Vancomycin Trough 05/13/19 05/13/19 05/14/19 06:27 11:58 04:00 WBC RBC 3.16 L Hgb 9.3 L Hct 27.9 L MCV MCH MCHC RDW 17.1 H Plt Count Lymph % (Auto) [place] % (Auto) Eos % (Auto) Lymph # [place] # Eos # Seg Neutrophils % Seg Neuts % (Manual) Lymphocytes % (Manual) Monocytes % (Manual) Eosinophils % (Manual) Nucleated RBC % Seg Neutrophils # Seg Neutrophils # Man Lymphocytes # (Manual) Monocytes # (Manual) Eosinophils # (Manual) PT INR APTT Fibrinogen POC ABG pH ABG pH POC ABG pCO2 POC ABG pO2 ABG pO2 ABG HCO3 ABG O2 Saturation ABG Base Excess ABG Hemoglobin Oxyhemoglobin Sodium Potassium Chloride Carbon Dioxide BUN Creatinine Glucose POC Glucose 113 H 130 H Uric Acid Calcium Phosphorus Magnesium Iron TIBC AST ALT Total Creatine Kinase CK-MB (CK-2) Troponin T NT-Pro-B Natriuret Pep Total Protein Albumin Triglycerides HDL Cholesterol Folate Urine WBC (Auto) Urine Creatinine Urine Total Protein Vancomycin Trough 05/14/19 05/14/19 05/14/19 04:00 04:34 05:32 WBC RBC Hgb Hct MCV MCH MCHC RDW Plt Count Lymph % (Auto) [place] % (Auto) Eos % (Auto) Lymph # [place] # Eos # Seg Neutrophils % Seg Neuts % (Manual) Lymphocytes % (Manual) Monocytes % (Manual) Eosinophils % (Manual) Nucleated RBC % Seg Neutrophils # Seg Neutrophils # Man Lymphocytes # (Manual) Monocytes # (Manual) Eosinophils # (Manual) PT INR APTT Fibrinogen POC ABG pH 7.328 L ABG pH POC ABG pCO2 61.7 H POC ABG pO2 ABG pO2 ABG HCO3 ABG O2 Saturation ABG Base Excess ABG Hemoglobin Oxyhemoglobin Sodium 135 L D Potassium Chloride Carbon Dioxide BUN 57 H Creatinine 2.2 H Glucose 115 H POC Glucose 115 H Uric Acid Calcium 8.1 L Phosphorus Magnesium Iron TIBC AST ALT Total Creatine Kinase CK-MB (CK-2) Troponin T NT-Pro-B Natriuret Pep Total Protein Albumin Triglycerides HDL Cholesterol Folate Urine WBC (Auto) Urine Creatinine Urine Total Protein Vancomycin Trough 05/14/19 05/15/19 05/15/19 12:11 05:10 05:24 WBC RBC Hgb Hct MCV MCH MCHC RDW Plt Count Lymph % (Auto) [place] % (Auto) Eos % (Auto) Lymph # [place] # Eos # Seg Neutrophils % Seg Neuts % (Manual) Lymphocytes % (Manual) Monocytes % (Manual) Eosinophils % (Manual) Nucleated RBC % Seg Neutrophils # Seg Neutrophils # Man Lymphocytes # (Manual) Monocytes # (Manual) Eosinophils # (Manual) PT INR APTT Fibrinogen POC ABG pH ABG pH 7.342 L POC ABG pCO2 POC ABG pO2 ABG pO2 79.1 L ABG HCO3 28.2 H ABG O2 Saturation ABG Base Excess ABG Hemoglobin 7.0 L Oxyhemoglobin 94.4 L Sodium Potassium Chloride Carbon Dioxide BUN Creatinine Glucose POC Glucose 110 H 116 H Uric Acid Calcium Phosphorus Magnesium Iron TIBC AST ALT Total Creatine Kinase CK-MB (CK-2) Troponin T NT-Pro-B Natriuret Pep Total Protein Albumin Triglycerides HDL Cholesterol Folate Urine WBC (Auto) Urine Creatinine Urine Total Protein Vancomycin Trough 05/15/19 05/15/19 05/16/19 09:00 18:12 04:50 WBC RBC Hgb Hct MCV MCH MCHC RDW Plt Count Lymph % (Auto) [place] % (Auto) Eos % (Auto) Lymph # [place] # Eos # Seg Neutrophils % Seg Neuts % (Manual) Lymphocytes % (Manual) Monocytes % (Manual) Eosinophils % (Manual) Nucleated RBC % Seg Neutrophils # Seg Neutrophils # Man Lymphocytes # (Manual) Monocytes # (Manual) Eosinophils # (Manual) PT INR APTT Fibrinogen POC ABG pH ABG pH 7.250 L POC ABG pCO2 POC ABG pO2 ABG pO2 76.4 L ABG HCO3 ABG O2 Saturation 94.6 L ABG Base Excess -3.1 L ABG Hemoglobin 9.7 L Oxyhemoglobin 92.4 L Sodium Potassium Chloride Carbon Dioxide BUN Creatinine Glucose POC Glucose 110 H Uric Acid Calcium Phosphorus Magnesium Iron TIBC AST ALT Total Creatine Kinase CK-MB (CK-2) Troponin T NT-Pro-B Natriuret Pep Total Protein Albumin Triglycerides HDL Cholesterol Folate Urine WBC (Auto) Urine Creatinine Urine Total Protein Vancomycin Trough 20.5 H 05/16/19 05/16/19 05/17/19 05:50 05:50 04:20 WBC RBC 3.36 L 3.44 L Hgb 9.4 L 9.3 L Hct 29.1 L 29.7 L MCV MCH 27 L MCHC 31 L RDW 17.6 H 17.6 H Plt Count Lymph % (Auto) [place] % (Auto) Eos % (Auto) Lymph # [place] # Eos # Seg Neutrophils % Seg Neuts % (Manual) 77.0 H Lymphocytes % (Manual) 5.0 L Monocytes % (Manual) Eosinophils % (Manual) 10.0 H Nucleated RBC % Seg Neutrophils # Seg Neutrophils # Man Lymphocytes # (Manual) 0.5 L Monocytes # (Manual) Eosinophils # (Manual) 0.9 H PT INR APTT Fibrinogen POC ABG pH ABG pH POC ABG pCO2 POC ABG pO2 ABG pO2 ABG HCO3 ABG O2 Saturation ABG Base Excess ABG Hemoglobin Oxyhemoglobin Sodium Potassium Chloride Carbon Dioxide BUN 83 H Creatinine 4.4 H D Glucose 118 H POC Glucose Uric Acid Calcium Phosphorus Magnesium Iron TIBC AST ALT Total Creatine Kinase CK-MB (CK-2) Troponin T NT-Pro-B Natriuret Pep Total Protein Albumin Triglycerides HDL Cholesterol Folate Urine WBC (Auto) Urine Creatinine Urine Total Protein Vancomycin Trough 05/17/19 05/17/19 05/18/19 04:30 Unknown 01:50 WBC RBC 3.49 L Hgb 9.4 L Hct 30.0 L MCV MCH 27 L MCHC 31 L RDW 17.8 H Plt Count Lymph % (Auto) 7.9 L [place] % (Auto) 15.4 H Eos % (Auto) 6.3 H Lymph # 0.7 L [place] # 1.4 H Eos # 0.6 H Seg Neutrophils % 70.2 H Seg Neuts % (Manual) Lymphocytes % (Manual) Monocytes % (Manual) Eosinophils % (Manual) Nucleated RBC % Seg Neutrophils # Seg Neutrophils # Man Lymphocytes # (Manual) Monocytes # (Manual) Eosinophils # (Manual) PT INR APTT Fibrinogen POC ABG pH ABG pH 7.272 L POC ABG pCO2 POC ABG pO2 ABG pO2 75.7 L ABG HCO3 ABG O2 Saturation 93.8 L ABG Base Excess -3.0 L ABG Hemoglobin 7.8 L Oxyhemoglobin 91.6 L Sodium Potassium 5.2 H Chloride Carbon Dioxide BUN 96 H Creatinine 5.7 H Glucose 112 H POC Glucose Uric Acid Calcium Phosphorus Magnesium Iron TIBC AST ALT Total Creatine Kinase CK-MB (CK-2) Troponin T NT-Pro-B Natriuret Pep Total Protein Albumin Triglycerides 173 H HDL Cholesterol Folate Urine WBC (Auto) Urine Creatinine Urine Total Protein Vancomycin Trough 05/18/19 05/18/19 05/18/19 01:50 04:41 05:24 WBC RBC Hgb Hct MCV MCH MCHC RDW Plt Count Lymph % (Auto) [place] % (Auto) Eos % (Auto) Lymph # [place] # Eos # Seg Neutrophils % Seg Neuts % (Manual) Lymphocytes % (Manual) Monocytes % (Manual) Eosinophils % (Manual) Nucleated RBC % Seg Neutrophils # Seg Neutrophils # Man Lymphocytes # (Manual) Monocytes # (Manual) Eosinophils # (Manual) PT INR APTT Fibrinogen POC ABG pH 7.260 L ABG pH POC ABG pCO2 54.9 H POC ABG pO2 ABG pO2 ABG HCO3 ABG O2 Saturation ABG Base Excess ABG Hemoglobin Oxyhemoglobin Sodium Potassium 5.6 H Chloride Carbon Dioxide BUN 104 H Creatinine 6.6 H Glucose 107 H POC Glucose 106 H Uric Acid Calcium Phosphorus Magnesium Iron TIBC AST ALT Total Creatine Kinase CK-MB (CK-2) Troponin T NT-Pro-B Natriuret Pep Total Protein Albumin Triglycerides HDL Cholesterol Folate Urine WBC (Auto) Urine Creatinine Urine Total Protein Vancomycin Trough 05/18/19 05/18/19 05/19/19 11:34 23:26 04:06 WBC RBC 3.22 L Hgb 8.8 L Hct 27.3 L MCV MCH 27 L MCHC RDW 17.5 H Plt Count Lymph % (Auto) [place] % (Auto) Eos % (Auto) Lymph # [place] # Eos # Seg Neutrophils % Seg Neuts % (Manual) 74.0 H Lymphocytes % (Manual) 4.0 L Monocytes % (Manual) 11.0 H Eosinophils % (Manual) 7.0 H Nucleated RBC % 1.0 H Seg Neutrophils # Seg Neutrophils # Man Lymphocytes # (Manual) 0.3 L Monocytes # (Manual) 0.9 H Eosinophils # (Manual) 0.6 H PT INR APTT Fibrinogen POC ABG pH ABG pH POC ABG pCO2 POC ABG pO2 ABG pO2 ABG HCO3 ABG O2 Saturation ABG Base Excess ABG Hemoglobin Oxyhemoglobin Sodium Potassium Chloride Carbon Dioxide BUN Creatinine Glucose POC Glucose 152 H 112 H Uric Acid Calcium Phosphorus Magnesium Iron TIBC AST ALT Total Creatine Kinase CK-MB (CK-2) Troponin T NT-Pro-B Natriuret Pep Total Protein Albumin Triglycerides HDL Cholesterol Folate Urine WBC (Auto) Urine Creatinine Urine Total Protein Vancomycin Trough 05/19/19 05/19/19 05/20/19 04:06 06:00 04:00 WBC RBC 3.40 L Hgb 9.2 L Hct 28.6 L MCV MCH 27 L MCHC RDW 17.6 H Plt Count Lymph % (Auto) [place] % (Auto) Eos % (Auto) Lymph # [place] # Eos # Seg Neutrophils % Seg Neuts % (Manual) Lymphocytes % (Manual) 11.0 L Monocytes % (Manual) Eosinophils % (Manual) 14.0 H Nucleated RBC % Seg Neutrophils # Seg Neutrophils # Man Lymphocytes # (Manual) 1.1 L Monocytes # (Manual) Eosinophils # (Manual) 1.4 H PT INR APTT Fibrinogen POC ABG pH ABG pH 7.315 L POC ABG pCO2 POC ABG pO2 ABG pO2 ABG HCO3 ABG O2 Saturation ABG Base Excess ABG Hemoglobin 6.7 L Oxyhemoglobin 94.1 L Sodium Potassium 5.2 H Chloride Carbon Dioxide 21 L BUN 110 H Creatinine 7.2 H Glucose POC Glucose Uric Acid Calcium 8.3 L Phosphorus Magnesium Iron TIBC AST ALT Total Creatine Kinase CK-MB (CK-2) Troponin T NT-Pro-B Natriuret Pep Total Protein Albumin Triglycerides HDL Cholesterol Folate Urine WBC (Auto) Urine Creatinine Urine Total Protein Vancomycin Trough 05/20/19 05/20/19 05/20/19 04:00 05:48 12:00 WBC RBC Hgb Hct MCV MCH MCHC RDW Plt Count Lymph % (Auto) [place] % (Auto) Eos % (Auto) Lymph # [place] # Eos # Seg Neutrophils % Seg Neuts % (Manual) Lymphocytes % (Manual) Monocytes % (Manual) Eosinophils % (Manual) Nucleated RBC % Seg Neutrophils # Seg Neutrophils # Man Lymphocytes # (Manual) Monocytes # (Manual) Eosinophils # (Manual) PT INR APTT Fibrinogen POC ABG pH ABG pH 7.281 L POC ABG pCO2 POC ABG pO2 ABG pO2 78.7 L ABG HCO3 ABG O2 Saturation 94.5 L ABG Base Excess -3.0 L ABG Hemoglobin 9.9 L Oxyhemoglobin 92.5 L Sodium 136 L Potassium 5.7 H Chloride 96.3 L Carbon Dioxide BUN 125 H Creatinine 8.3 H Glucose 106 H POC Glucose Uric Acid Calcium Phosphorus Magnesium Iron TIBC AST ALT Total Creatine Kinase CK-MB (CK-2) Troponin T NT-Pro-B Natriuret Pep Total Protein Albumin Triglycerides HDL Cholesterol Folate Urine WBC (Auto) 26.0 H Urine Creatinine Urine Total Protein Vancomycin Trough 05/21/19 05/21/19 05/21/19 04:33 05:20 Unknown WBC RBC 3.38 L Hgb 9.1 L Hct 28.5 L MCV MCH 27 L MCHC RDW 17.4 H Plt Count Lymph % (Auto) [place] % (Auto) Eos % (Auto) Lymph # [place] # Eos # Seg Neutrophils % Seg Neuts % (Manual) 71.0 H Lymphocytes % (Manual) 1.0 L Monocytes % (Manual) 11.0 H Eosinophils % (Manual) 6.0 H Nucleated RBC % Seg Neutrophils # Seg Neutrophils # Man Lymphocytes # (Manual) 0.1 L Monocytes # (Manual) 1.0 H Eosinophils # (Manual) 0.6 H PT INR APTT Fibrinogen POC ABG pH 7.315 L ABG pH POC ABG pCO2 57.8 H POC ABG pO2 68 L ABG pO2 ABG HCO3 ABG O2 Saturation ABG Base Excess ABG Hemoglobin Oxyhemoglobin Sodium Potassium Chloride 96.3 L Carbon Dioxide BUN 102 H Creatinine 7.0 H Glucose 103 H POC Glucose Uric Acid Calcium Phosphorus Magnesium Iron TIBC AST ALT Total Creatine Kinase CK-MB (CK-2) Troponin T NT-Pro-B Natriuret Pep Total Protein Albumin Triglycerides HDL Cholesterol Folate Urine WBC (Auto) Urine Creatinine Urine Total Protein Vancomycin Trough 05/22/19 05/22/19 05/22/19 03:54 06:25 06:25 WBC RBC 3.22 L Hgb 8.6 L Hct 27.0 L MCV MCH 27 L MCHC RDW 17.5 H Plt Count Lymph % (Auto) [place] % (Auto) 16.2 H Eos % (Auto) 10.8 H Lymph # [place] # 1.3 H Eos # 0.9 H Seg Neutrophils % Seg Neuts % (Manual) Lymphocytes % (Manual) 10.0 L Monocytes % (Manual) 13.0 H Eosinophils % (Manual) 8.0 H Nucleated RBC % Seg Neutrophils # Seg Neutrophils # Man Lymphocytes # (Manual) 0.9 L Monocytes # (Manual) 1.1 H Eosinophils # (Manual) 0.7 H PT INR APTT Fibrinogen POC ABG pH 7.313 L ABG pH POC ABG pCO2 55.0 H POC ABG pO2 ABG pO2 ABG HCO3 ABG O2 Saturation ABG Base Excess ABG Hemoglobin Oxyhemoglobin Sodium 135 L Potassium Chloride 94.3 L Carbon Dioxide BUN 117 H Creatinine 7.8 H Glucose POC Glucose Uric Acid Calcium 8.2 L Phosphorus Magnesium Iron TIBC AST ALT Total Creatine Kinase CK-MB (CK-2) Troponin T NT-Pro-B Natriuret Pep Total Protein Albumin Triglycerides HDL Cholesterol Folate Urine WBC (Auto) Urine Creatinine Urine Total Protein Vancomycin Trough 05/23/19 05/24/19 05/24/19 05:21 05:00 05:00 WBC RBC 3.18 L Hgb 8.5 L Hct 26.7 L MCV MCH 27 L MCHC RDW 17.9 H Plt Count Lymph % (Auto) [place] % (Auto) Eos % (Auto) Lymph # [place] # Eos # Seg Neutrophils % Seg Neuts % (Manual) Lymphocytes % (Manual) Monocytes % (Manual) Eosinophils % (Manual) Nucleated RBC % Seg Neutrophils # Seg Neutrophils # Man Lymphocytes # (Manual) Monocytes # (Manual) Eosinophils # (Manual) PT INR APTT Fibrinogen POC ABG pH ABG pH POC ABG pCO2 49.7 H POC ABG pO2 73 L ABG pO2 ABG HCO3 ABG O2 Saturation ABG Base Excess ABG Hemoglobin Oxyhemoglobin Sodium Potassium Chloride 95.7 L Carbon Dioxide BUN 97 H Creatinine 6.5 H Glucose POC Glucose Uric Acid Calcium 8.0 L Phosphorus Magnesium Iron TIBC AST ALT Total Creatine Kinase CK-MB (CK-2) Troponin T NT-Pro-B Natriuret Pep Total Protein Albumin Triglycerides HDL Cholesterol Folate Urine WBC (Auto) Urine Creatinine Urine Total Protein Vancomycin Trough 05/24/19 05/25/19 05/25/19 06:17 04:22 15:45 WBC RBC 2.98 L Hgb 8.1 L Hct 24.9 L MCV MCH 27 L MCHC RDW 17.8 H Plt Count Lymph % (Auto) [place] % (Auto) Eos % (Auto) Lymph # [place] # Eos # Seg Neutrophils % Seg Neuts % (Manual) Lymphocytes % (Manual) Monocytes % (Manual) Eosinophils % (Manual) Nucleated RBC % Seg Neutrophils # Seg Neutrophils # Man Lymphocytes # (Manual) Monocytes # (Manual) Eosinophils # (Manual) PT INR APTT Fibrinogen POC ABG pH 7.330 L 7.313 L ABG pH POC ABG pCO2 52.5 H 51.1 H POC ABG pO2 77 L ABG pO2 ABG HCO3 ABG O2 Saturation ABG Base Excess ABG Hemoglobin Oxyhemoglobin Sodium Potassium Chloride Carbon Dioxide BUN Creatinine Glucose POC Glucose Uric Acid Calcium Phosphorus Magnesium Iron TIBC AST ALT Total Creatine Kinase CK-MB (CK-2) Troponin T NT-Pro-B Natriuret Pep Total Protein Albumin Triglycerides HDL Cholesterol Folate Urine WBC (Auto) Urine Creatinine Urine Total Protein Vancomycin Trough 05/25/19 05/26/19 05/26/19 15:45 04:13 05:00 WBC RBC 3.10 L Hgb 8.4 L Hct 26.0 L MCV MCH 27 L MCHC RDW 17.4 H Plt Count Lymph % (Auto) [place] % (Auto) Eos % (Auto) Lymph # [place] # Eos # Seg Neutrophils % Seg Neuts % (Manual) Lymphocytes % (Manual) Monocytes % (Manual) Eosinophils % (Manual) Nucleated RBC % Seg Neutrophils # Seg Neutrophils # Man Lymphocytes # (Manual) Monocytes # (Manual) Eosinophils # (Manual) PT INR APTT Fibrinogen POC ABG pH 7.295 L ABG pH POC ABG pCO2 56.5 H POC ABG pO2 63 L ABG pO2 ABG HCO3 ABG O2 Saturation ABG Base Excess ABG Hemoglobin Oxyhemoglobin Sodium 136 L Potassium Chloride 96.8 L Carbon Dioxide BUN 83 H Creatinine 5.9 H Glucose POC Glucose Uric Acid Calcium 7.6 L Phosphorus Magnesium Iron TIBC AST ALT Total Creatine Kinase CK-MB (CK-2) Troponin T NT-Pro-B Natriuret Pep Total Protein Albumin Triglycerides HDL Cholesterol Folate Urine WBC (Auto) Urine Creatinine Urine Total Protein Vancomycin Trough 05/26/19 05/27/19 05/28/19 05:00 04:48 04:47 WBC RBC Hgb Hct MCV MCH MCHC RDW Plt Count Lymph % (Auto) [place] % (Auto) Eos % (Auto) Lymph # [place] # Eos # Seg Neutrophils % Seg Neuts % (Manual) Lymphocytes % (Manual) Monocytes % (Manual) Eosinophils % (Manual) Nucleated RBC % Seg Neutrophils # Seg Neutrophils # Man Lymphocytes # (Manual) Monocytes # (Manual) Eosinophils # (Manual) PT INR APTT Fibrinogen POC ABG pH 7.323 L ABG pH 7.284 L POC ABG pCO2 56.2 H POC ABG pO2 ABG pO2 71.6 L ABG HCO3 ABG O2 Saturation 92.0 L ABG Base Excess ABG Hemoglobin 7.7 L Oxyhemoglobin 89.9 L Sodium 136 L Potassium Chloride 95.3 L Carbon Dioxide BUN 96 H Creatinine 6.5 H Glucose 108 H POC Glucose Uric Acid Calcium 7.6 L Phosphorus Magnesium Iron TIBC AST ALT Total Creatine Kinase CK-MB (CK-2) Troponin T NT-Pro-B Natriuret Pep Total Protein Albumin Triglycerides HDL Cholesterol Folate Urine WBC (Auto) Urine Creatinine Urine Total Protein Vancomycin Trough 05/28/19 05/29/19 05/29/19 12:30 12:47 23:44 WBC RBC Hgb Hct MCV MCH MCHC RDW Plt Count Lymph % (Auto) [place] % (Auto) Eos % (Auto) Lymph # [place] # Eos # Seg Neutrophils % Seg Neuts % (Manual) Lymphocytes % (Manual) Monocytes % (Manual) Eosinophils % (Manual) Nucleated RBC % Seg Neutrophils # Seg Neutrophils # Man Lymphocytes # (Manual) Monocytes # (Manual) Eosinophils # (Manual) PT INR APTT Fibrinogen POC ABG pH ABG pH POC ABG pCO2 POC ABG pO2 ABG pO2 ABG HCO3 ABG O2 Saturation ABG Base Excess ABG Hemoglobin Oxyhemoglobin Sodium 135 L Potassium Chloride 95.3 L Carbon Dioxide BUN 82 H Creatinine 6.0 H Glucose POC Glucose 136 H 159 H Uric Acid Calcium 7.5 L Phosphorus Magnesium Iron TIBC AST ALT Total Creatine Kinase CK-MB (CK-2) Troponin T NT-Pro-B Natriuret Pep Total Protein Albumin Triglycerides HDL Cholesterol Folate Urine WBC (Auto) Urine Creatinine Urine Total Protein Vancomycin Trough 05/30/19 05/30/1920 04:30 05:38 12:00 WBC RBC 3.01 L Hgb 8.2 L Hct 25.3 L MCV MCH 27 L MCHC RDW 17.5 H Plt Count Lymph % (Auto) [place] % (Auto) Eos % (Auto) Lymph # [place] # Eos # Seg Neutrophils % Seg Neuts % (Manual) 80.0 H Lymphocytes % (Manual) 10.0 L Monocytes % (Manual) Eosinophils % (Manual) Nucleated RBC % Seg Neutrophils # Seg Neutrophils # Man 8.0 H Lymphocytes # (Manual) 1.0 L Monocytes # (Manual) Eosinophils # (Manual) PT INR APTT Fibrinogen POC ABG pH ABG pH POC ABG pCO2 POC ABG pO2 73 L ABG pO2 ABG HCO3 ABG O2 Saturation ABG Base Excess ABG Hemoglobin Oxyhemoglobin Sodium Potassium Chloride Carbon Dioxide BUN Creatinine Glucose POC Glucose 166 H Uric Acid Calcium Phosphorus Magnesium Iron TIBC AST ALT Total Creatine Kinase CK-MB (CK-2) Troponin T NT-Pro-B Natriuret Pep Total Protein Albumin Triglycerides HDL Cholesterol Folate Urine WBC (Auto) Urine Creatinine Urine Total Protein Vancomycin Trough 05/30/19 05/31/19 05/31/19 23:45 04:07 13:04 WBC 14.3 H RBC 2.88 L Hgb 7.7 L Hct 23.9 L MCV 83 L MCH 27 L MCHC RDW 17.8 H Plt Count Lymph % (Auto) [place] % (Auto) Eos % (Auto) Lymph # [place] # Eos # Seg Neutrophils % Seg Neuts % (Manual) 83.0 H Lymphocytes % (Manual) 11.0 L Monocytes % (Manual) Eosinophils % (Manual) Nucleated RBC % Seg Neutrophils # Seg Neutrophils # Man 11.9 H Lymphocytes # (Manual) Monocytes # (Manual) 0.9 H Eosinophils # (Manual) PT INR APTT Fibrinogen POC ABG pH ABG pH POC ABG pCO2 47.4 H POC ABG pO2 ABG pO2 ABG HCO3 ABG O2 Saturation ABG Base Excess ABG Hemoglobin Oxyhemoglobin Sodium Potassium Chloride Carbon Dioxide BUN Creatinine Glucose POC Glucose 209 H Uric Acid Calcium Phosphorus Magnesium Iron TIBC AST ALT Total Creatine Kinase CK-MB (CK-2) Troponin T NT-Pro-B Natriuret Pep Total Protein Albumin Triglycerides HDL Cholesterol Folate Urine WBC (Auto) Urine Creatinine Urine Total Protein Vancomycin Trough 01/11/1205/31/19 06/01/19 13:04 16:42 00:15 WBC RBC Hgb Hct MCV MCH MCHC RDW Plt Count Lymph % (Auto) [place] % (Auto) Eos % (Auto) Lymph # [place] # Eos # Seg Neutrophils % Seg Neuts % (Manual) Lymphocytes % (Manual) Monocytes % (Manual) Eosinophils % (Manual) Nucleated RBC % Seg Neutrophils # Seg Neutrophils # Man Lymphocytes # (Manual) Monocytes # (Manual) Eosinophils # (Manual) PT INR APTT Fibrinogen POC ABG pH ABG pH POC ABG pCO2 POC ABG pO2 ABG pO2 ABG HCO3 ABG O2 Saturation ABG Base Excess ABG Hemoglobin Oxyhemoglobin Sodium 129 L Potassium Chloride 88.6 L Carbon Dioxide 19 L BUN 117 H Creatinine 6.7 H Glucose 205 H POC Glucose 228 H 223 H Uric Acid Calcium 7.4 L Phosphorus 7.40 H Magnesium Iron TIBC AST 58 H ALT 149 H Total Creatine Kinase CK-MB (CK-2) Troponin T NT-Pro-B Natriuret Pep Total Protein 6.0 L Albumin 2.5 L Triglycerides HDL Cholesterol Folate Urine WBC (Auto) Urine Creatinine Urine Total Protein Vancomycin Trough 06/01/19 06/01/19 06/01/19 04:33 05:27 12:31 WBC RBC Hgb Hct MCV MCH MCHC RDW Plt Count Lymph % (Auto) [place] % (Auto) Eos % (Auto) Lymph # [place] # Eos # Seg Neutrophils % Seg Neuts % (Manual) Lymphocytes % (Manual) Monocytes % (Manual) Eosinophils % (Manual) Nucleated RBC % Seg Neutrophils # Seg Neutrophils # Man Lymphocytes # (Manual) Monocytes # (Manual) Eosinophils # (Manual) PT INR APTT Fibrinogen POC ABG pH ABG pH POC ABG pCO2 POC ABG pO2 ABG pO2 56.9 L ABG HCO3 ABG O2 Saturation 85.9 L ABG Base Excess ABG Hemoglobin 8.1 L Oxyhemoglobin 83.6 L Sodium Potassium Chloride Carbon Dioxide BUN Creatinine Glucose POC Glucose 183 H 217 H Uric Acid Calcium Phosphorus Magnesium Iron TIBC AST ALT Total Creatine Kinase CK-MB (CK-2) Troponin T NT-Pro-B Natriuret Pep Total Protein Albumin Triglycerides HDL Cholesterol Folate Urine WBC (Auto) Urine Creatinine Urine Total Protein Vancomycin Trough 06/01/19 06/02/19 06/02/19 18:20 00:00 05:33 WBC RBC Hgb Hct MCV MCH MCHC RDW Plt Count Lymph % (Auto) [place] % (Auto) Eos % (Auto) Lymph # [place] # Eos # Seg Neutrophils % Seg Neuts % (Manual) Lymphocytes % (Manual) Monocytes % (Manual) Eosinophils % (Manual) Nucleated RBC % Seg Neutrophils # Seg Neutrophils # Man Lymphocytes # (Manual) Monocytes # (Manual) Eosinophils # (Manual) PT INR APTT Fibrinogen POC ABG pH ABG pH POC ABG pCO2 POC ABG pO2 ABG pO2 ABG HCO3 ABG O2 Saturation ABG Base Excess ABG Hemoglobin Oxyhemoglobin Sodium Potassium Chloride Carbon Dioxide BUN Creatinine Glucose POC Glucose 265 H 279 H 259 H Uric Acid Calcium Phosphorus Magnesium Iron TIBC AST ALT Total Creatine Kinase CK-MB (CK-2) Troponin T NT-Pro-B Natriuret Pep Total Protein Albumin Triglycerides HDL Cholesterol Folate Urine WBC (Auto) Urine Creatinine Urine Total Protein Vancomycin Trough 06/02/19 06/02/19 06/02/19 11:06 11:06 11:42 WBC 13.1 H RBC 2.92 L Hgb 7.9 L Hct 24.4 L MCV MCH 27 L MCHC RDW 17.4 H Plt Count Lymph % (Auto) [place] % (Auto) Eos % (Auto) Lymph # [place] # Eos # Seg Neutrophils % Seg Neuts % (Manual) 78.0 H Lymphocytes % (Manual) 12.0 L Monocytes % (Manual) 10.0 H Eosinophils % (Manual) Nucleated RBC % Seg Neutrophils # Seg Neutrophils # Man 10.2 H Lymphocytes # (Manual) Monocytes # (Manual) 1.3 H Eosinophils # (Manual) PT INR APTT Fibrinogen POC ABG pH ABG pH POC ABG pCO2 POC ABG pO2 ABG pO2 ABG HCO3 ABG O2 Saturation ABG Base Excess ABG Hemoglobin Oxyhemoglobin Sodium 135 L Potassium Chloride 94.7 L Carbon Dioxide 21 L BUN 107 H Creatinine 4.5 H Glucose 286 H POC Glucose 263 H Uric Acid Calcium 7.9 L Phosphorus 6.30 H Magnesium Iron TIBC AST ALT 104 H Total Creatine Kinase CK-MB (CK-2) Troponin T NT-Pro-B Natriuret Pep Total Protein 6.0 L Albumin 2.7 L Triglycerides HDL Cholesterol Folate Urine WBC (Auto) Urine Creatinine Urine Total Protein Vancomycin Trough 06/02/19 06/02/19 06/03/19 18:17 23:55 05:30 WBC RBC Hgb Hct MCV MCH MCHC RDW Plt Count Lymph % (Auto) [place] % (Auto) Eos % (Auto) Lymph # [place] # Eos # Seg Neutrophils % Seg Neuts % (Manual) Lymphocytes % (Manual) Monocytes % (Manual) Eosinophils % (Manual) Nucleated RBC % Seg Neutrophils # Seg Neutrophils # Man Lymphocytes # (Manual) Monocytes # (Manual) Eosinophils # (Manual) PT INR APTT Fibrinogen POC ABG pH ABG pH POC ABG pCO2 POC ABG pO2 ABG pO2 ABG HCO3 ABG O2 Saturation ABG Base Excess ABG Hemoglobin Oxyhemoglobin Sodium Potassium Chloride 95.1 L Carbon Dioxide 21 L BUN 119 H Creatinine 4.1 H Glucose 330 H POC Glucose 276 H 244 H Uric Acid Calcium 8.1 L Phosphorus Magnesium Iron TIBC AST ALT 98 H Total Creatine Kinase CK-MB (CK-2) Troponin T NT-Pro-B Natriuret Pep Total Protein 5.8 L Albumin 2.8 L Triglycerides HDL Cholesterol Folate Urine WBC (Auto) Urine Creatinine Urine Total Protein Vancomycin Trough 06/03/19 06/03/19 06/03/19 05:30 06:04 09:42 WBC 12.8 H RBC 3.01 L Hgb 8.2 L Hct 25.4 L MCV MCH 27 L MCHC RDW 17.5 H Plt Count Lymph % (Auto) Tillman % (Auto) Eos % (Auto) Lymph # Tillman # Eos # Seg Neutrophils % Seg Neuts % (Manual) 78.0 H Lymphocytes % (Manual) 10.0 L Monocytes % (Manual) 12.0 H Eosinophils % (Manual) Nucleated RBC % Seg Neutrophils # Seg Neutrophils # Man 10.0 H Lymphocytes # (Manual) Monocytes # (Manual) 1.5 H Eosinophils # (Manual) PT INR APTT Fibrinogen POC ABG pH ABG pH POC ABG pCO2 POC ABG pO2 ABG pO2 ABG HCO3 ABG O2 Saturation ABG Base Excess ABG Hemoglobin Oxyhemoglobin Sodium Potassium Chloride Carbon Dioxide BUN 106 H Creatinine Glucose POC Glucose 254 H Uric Acid Calcium Phosphorus Magnesium Iron TIBC AST ALT Total Creatine Kinase CK-MB (CK-2) Troponin T NT-Pro-B Natriuret Pep Total Protein Albumin Triglycerides HDL Cholesterol Folate Urine WBC (Auto) Urine Creatinine Urine Total Protein Vancomycin Trough 06/03/19 06/03/19 06/03/19 12:52 17:25 23:37 WBC RBC Hgb Hct MCV MCH MCHC RDW Plt Count Lymph % (Auto) [place] % (Auto) Eos % (Auto) Lymph # [place]man # Eos # Seg Neutrophils % Seg Neuts % (Manual) Lymphocytes % (Manual) Monocytes % (Manual) Eosinophils % (Manual) Nucleated RBC % Seg Neutrophils # Seg Neutrophils # Man Lymphocytes # (Manual) Monocytes # (Manual) Eosinophils # (Manual) PT INR APTT Fibrinogen POC ABG pH ABG pH POC ABG pCO2 POC ABG pO2 ABG pO2 ABG HCO3 ABG O2 Saturation ABG Base Excess ABG Hemoglobin Oxyhemoglobin Sodium Potassium Chloride Carbon Dioxide BUN Creatinine Glucose POC Glucose 274 H 285 H 310 H Uric Acid Calcium Phosphorus Magnesium Iron TIBC AST ALT Total Creatine Kinase CK-MB (CK-2) Troponin T NT-Pro-B Natriuret Pep Total Protein Albumin Triglycerides HDL Cholesterol Folate Urine WBC (Auto) Urine Creatinine Urine Total Protein Vancomycin Trough 06/04/19 06/04/19 06/04/19 04:57 05:03 11:50 WBC RBC Hgb Hct MCV MCH MCHC RDW Plt Count Lymph % (Auto) [place] % (Auto) Eos % (Auto) Lymph # [place] # Eos # Seg Neutrophils % Seg Neuts % (Manual) Lymphocytes % (Manual) Monocytes % (Manual) Eosinophils % (Manual) Nucleated RBC % Seg Neutrophils # Seg Neutrophils # Man Lymphocytes # (Manual) Monocytes # (Manual) Eosinophils # (Manual) PT INR APTT Fibrinogen POC ABG pH 7.488 H ABG pH POC ABG pCO2 POC ABG pO2 ABG pO2 ABG HCO3 ABG O2 Saturation ABG Base Excess ABG Hemoglobin Oxyhemoglobin Sodium Potassium Chloride Carbon Dioxide BUN Creatinine Glucose POC Glucose 275 H 279 H Uric Acid Calcium Phosphorus Magnesium Iron TIBC AST ALT Total Creatine Kinase CK-MB (CK-2) Troponin T NT-Pro-B Natriuret Pep Total Protein Albumin Triglycerides HDL Cholesterol Folate Urine WBC (Auto) Urine Creatinine Urine Total Protein Vancomycin Trough 06/04/19 06/04/19 06/04/19 18:32 22:03 23:55 WBC RBC Hgb Hct MCV MCH MCHC RDW Plt Count Lymph % (Auto) [place] % (Auto) Eos % (Auto) Lymph # [place] # Eos # Seg Neutrophils % Seg Neuts % (Manual) Lymphocytes % (Manual) Monocytes % (Manual) Eosinophils % (Manual) Nucleated RBC % Seg Neutrophils # Seg Neutrophils # Man Lymphocytes # (Manual) Monocytes # (Manual) Eosinophils # (Manual) PT INR APTT Fibrinogen POC ABG pH ABG pH POC ABG pCO2 POC ABG pO2 ABG pO2 ABG HCO3 ABG O2 Saturation ABG Base Excess ABG Hemoglobin Oxyhemoglobin Sodium Potassium Chloride Carbon Dioxide BUN Creatinine Glucose POC Glucose 267 H 307 H 292 H Uric Acid Calcium Phosphorus Magnesium Iron TIBC AST ALT Total Creatine Kinase CK-MB (CK-2) Troponin T NT-Pro-B Natriuret Pep Total Protein Albumin Triglycerides HDL Cholesterol Folate Urine WBC (Auto) Urine Creatinine Urine Total Protein Vancomycin Trough 06/05/19 06/05/19 06/05/19 03:52 06:41 12:29 WBC RBC Hgb Hct MCV MCH MCHC RDW Plt Count Lymph % (Auto) [place] % (Auto) Eos % (Auto) Lymph # [place] # Eos # Seg Neutrophils % Seg Neuts % (Manual) Lymphocytes % (Manual) Monocytes % (Manual) Eosinophils % (Manual) Nucleated RBC % Seg Neutrophils # Seg Neutrophils # Man Lymphocytes # (Manual) Monocytes # (Manual) Eosinophils # (Manual) PT INR APTT Fibrinogen POC ABG pH 7.462 H ABG pH POC ABG pCO2 POC ABG pO2 ABG pO2 ABG HCO3 ABG O2 Saturation ABG Base Excess ABG Hemoglobin Oxyhemoglobin Sodium Potassium Chloride Carbon Dioxide BUN Creatinine Glucose POC Glucose 369 H 265 H Uric Acid Calcium Phosphorus Magnesium Iron TIBC AST ALT Total Creatine Kinase CK-MB (CK-2) Troponin T NT-Pro-B Natriuret Pep Total Protein Albumin Triglycerides HDL Cholesterol Folate Urine WBC (Auto) Urine Creatinine Urine Total Protein Vancomycin Trough 06/05/19 06/05/19 06/05/19 18:20 21:42 23:21 WBC RBC Hgb Hct MCV MCH MCHC RDW Plt Count Lymph % (Auto) [place] % (Auto) Eos % (Auto) Lymph # [place] # Eos # Seg Neutrophils % Seg Neuts % (Manual) Lymphocytes % (Manual) Monocytes % (Manual) Eosinophils % (Manual) Nucleated RBC % Seg Neutrophils # Seg Neutrophils # Man Lymphocytes # (Manual) Monocytes # (Manual) Eosinophils # (Manual) PT INR APTT Fibrinogen POC ABG pH ABG pH POC ABG pCO2 POC ABG pO2 ABG pO2 ABG HCO3 ABG O2 Saturation ABG Base Excess ABG Hemoglobin Oxyhemoglobin Sodium Potassium Chloride Carbon Dioxide BUN Creatinine Glucose POC Glucose 249 H 246 H 274 H Uric Acid Calcium Phosphorus Magnesium Iron TIBC AST ALT Total Creatine Kinase CK-MB (CK-2) Troponin T NT-Pro-B Natriuret Pep Total Protein Albumin Triglycerides HDL Cholesterol Folate Urine WBC (Auto) Urine Creatinine Urine Total Protein Vancomycin Trough 06/06/19 06/06/19 06/06/19 04:00 05:49 11:34 WBC 18.1 H RBC 3.53 L Hgb 9.5 L Hct 30.3 L MCV MCH 27 L MCHC 31 L RDW 19.5 H Plt Count Lymph % (Auto) [place] % (Auto) Eos % (Auto) Lymph # [place] # Eos # Seg Neutrophils % Seg Neuts % (Manual) 87.0 H Lymphocytes % (Manual) 3.0 L Monocytes % (Manual) 8.0 H Eosinophils % (Manual) Nucleated RBC % Seg Neutrophils # Seg Neutrophils # Man 15.7 H Lymphocytes # (Manual) 0.5 L Monocytes # (Manual) 1.4 H Eosinophils # (Manual) PT INR APTT Fibrinogen POC ABG pH ABG pH 7.472 H POC ABG pCO2 POC ABG pO2 ABG pO2 76.4 L ABG HCO3 28.1 H ABG O2 Saturation ABG Base Excess 4.3 H ABG Hemoglobin 12.5 L Oxyhemoglobin 93.8 L Sodium Potassium Chloride Carbon Dioxide BUN Creatinine Glucose POC Glucose 340 H Uric Acid Calcium Phosphorus Magnesium Iron TIBC AST ALT Total Creatine Kinase CK-MB (CK-2) Troponin T NT-Pro-B Natriuret Pep Total Protein Albumin Triglycerides HDL Cholesterol Folate Urine WBC (Auto) Urine Creatinine Urine Total Protein Vancomycin Trough 06/06/19 06/06/19 06/06/19 11:34 12:11 18:10 WBC RBC Hgb Hct MCV MCH MCHC RDW Plt Count Lymph % (Auto) [place] % (Auto) Eos % (Auto) Lymph # [place] # Eos # Seg Neutrophils % Seg Neuts % (Manual) Lymphocytes % (Manual) Monocytes % (Manual) Eosinophils % (Manual) Nucleated RBC % Seg Neutrophils # Seg Neutrophils # Man Lymphocytes # (Manual) Monocytes # (Manual) Eosinophils # (Manual) PT INR APTT Fibrinogen POC ABG pH ABG pH POC ABG pCO2 POC ABG pO2 ABG pO2 ABG HCO3 ABG O2 Saturation ABG Base Excess ABG Hemoglobin Oxyhemoglobin Sodium Potassium Chloride Carbon Dioxide BUN 70 H Creatinine Glucose 310 H POC Glucose 283 H 301 H Uric Acid Calcium 8.3 L Phosphorus 4.60 H Magnesium Iron TIBC AST ALT 75 H Total Creatine Kinase CK-MB (CK-2) Troponin T NT-Pro-B Natriuret Pep Total Protein 5.6 L Albumin 2.9 L Triglycerides HDL Cholesterol Folate Urine WBC (Auto) Urine Creatinine Urine Total Protein Vancomycin Trough 06/06/19 06/06/19 06/07/19 22:21 23:16 04:30 WBC RBC Hgb Hct MCV MCH MCHC RDW Plt Count Lymph % (Auto) [place] % (Auto) Eos % (Auto) Lymph # [place] # Eos # Seg Neutrophils % Seg Neuts % (Manual) Lymphocytes % (Manual) Monocytes % (Manual) Eosinophils % (Manual) Nucleated RBC % Seg Neutrophils # Seg Neutrophils # Man Lymphocytes # (Manual) Monocytes # (Manual) Eosinophils # (Manual) PT INR APTT Fibrinogen POC ABG pH ABG pH 7.480 H POC ABG pCO2 POC ABG pO2 ABG pO2 77.0 L ABG HCO3 27.2 H ABG O2 Saturation ABG Base Excess 3.5 H ABG Hemoglobin 7.1 L Oxyhemoglobin 94.2 L Sodium Potassium Chloride Carbon Dioxide BUN Creatinine Glucose POC Glucose 289 H 343 H Uric Acid Calcium Phosphorus Magnesium Iron TIBC AST ALT Total Creatine Kinase CK-MB (CK-2) Troponin T NT-Pro-B Natriuret Pep Total Protein Albumin Triglycerides HDL Cholesterol Folate Urine WBC (Auto) Urine Creatinine Urine Total Protein Vancomycin Trough 06/07/19 06/07/19 06/07/19 05:15 12:52 18:41 WBC RBC Hgb Hct MCV MCH MCHC RDW Plt Count Lymph % (Auto) [place] % (Auto) Eos % (Auto) Lymph # [place] # Eos # Seg Neutrophils % Seg Neuts % (Manual) Lymphocytes % (Manual) Monocytes % (Manual) Eosinophils % (Manual) Nucleated RBC % Seg Neutrophils # Seg Neutrophils # Man Lymphocytes # (Manual) Monocytes # (Manual) Eosinophils # (Manual) PT INR APTT Fibrinogen POC ABG pH ABG pH POC ABG pCO2 POC ABG pO2 ABG pO2 ABG HCO3 ABG O2 Saturation ABG Base Excess ABG Hemoglobin Oxyhemoglobin Sodium Potassium Chloride Carbon Dioxide BUN Creatinine Glucose POC Glucose 307 H 226 H 187 H Uric Acid Calcium Phosphorus Magnesium Iron TIBC AST ALT Total Creatine Kinase CK-MB (CK-2) Troponin T NT-Pro-B Natriuret Pep Total Protein Albumin Triglycerides HDL Cholesterol Folate Urine WBC (Auto) Urine Creatinine Urine Total Protein Vancomycin Trough 06/07/19 06/07/19 06/08/19 22:54 23:46 04:20 WBC 16.0 H RBC Hgb 10.0 L Hct 32.1 L MCV MCH 27 L MCHC 31 L RDW 19.4 H Plt Count Lymph % (Auto) [place] % (Auto) Eos % (Auto) Lymph # [place] # Eos # Seg Neutrophils % Seg Neuts % (Manual) 87.0 H Lymphocytes % (Manual) 7.0 L Monocytes % (Manual) Eosinophils % (Manual) Nucleated RBC % Seg Neutrophils # Seg Neutrophils # Man 13.9 H Lymphocytes # (Manual) 1.1 L Monocytes # (Manual) 1.0 H Eosinophils # (Manual) PT INR APTT Fibrinogen POC ABG pH ABG pH POC ABG pCO2 POC ABG pO2 ABG pO2 ABG HCO3 ABG O2 Saturation ABG Base Excess ABG Hemoglobin Oxyhemoglobin Sodium Potassium Chloride Carbon Dioxide BUN Creatinine Glucose POC Glucose 199 H 172 H Uric Acid Calcium Phosphorus Magnesium Iron TIBC AST ALT Total Creatine Kinase CK-MB (CK-2) Troponin T NT-Pro-B Natriuret Pep Total Protein Albumin Triglycerides HDL Cholesterol Folate Urine WBC (Auto) Urine Creatinine Urine Total Protein Vancomycin Trough 06/08/19 06/08/19 06/08/19 04:20 05:15 11:31 WBC RBC Hgb Hct MCV MCH MCHC RDW Plt Count Lymph % (Auto) [place] % (Auto) Eos % (Auto) Lymph # [place] # Eos # Seg Neutrophils % Seg Neuts % (Manual) Lymphocytes % (Manual) Monocytes % (Manual) Eosinophils % (Manual) Nucleated RBC % Seg Neutrophils # Seg Neutrophils # Man Lymphocytes # (Manual) Monocytes # (Manual) Eosinophils # (Manual) PT INR APTT Fibrinogen POC ABG pH ABG pH POC ABG pCO2 POC ABG pO2 ABG pO2 ABG HCO3 ABG O2 Saturation ABG Base Excess ABG Hemoglobin Oxyhemoglobin Sodium 146 H D Potassium Chloride Carbon Dioxide BUN 77 H Creatinine Glucose 205 H POC Glucose 209 H 181 H Uric Acid Calcium Phosphorus Magnesium Iron TIBC AST ALT 66 H Total Creatine Kinase CK-MB (CK-2) Troponin T NT-Pro-B Natriuret Pep Total Protein 5.5 L Albumin 2.9 L Triglycerides HDL Cholesterol Folate Urine WBC (Auto) Urine Creatinine Urine Total Protein Vancomycin Trough 06/08/19 06/08/19 06/09/19 17:28 23:24 05:20 WBC RBC Hgb Hct MCV MCH MCHC RDW Plt Count Lymph % (Auto) [place] % (Auto) Eos % (Auto) Lymph # [place] # Eos # Seg Neutrophils % Seg Neuts % (Manual) Lymphocytes % (Manual) Monocytes % (Manual) Eosinophils % (Manual) Nucleated RBC % Seg Neutrophils # Seg Neutrophils # Man Lymphocytes # (Manual) Monocytes # (Manual) Eosinophils # (Manual) PT INR APTT Fibrinogen POC ABG pH ABG pH POC ABG pCO2 POC ABG pO2 ABG pO2 ABG HCO3 ABG O2 Saturation ABG Base Excess ABG Hemoglobin Oxyhemoglobin Sodium Potassium Chloride Carbon Dioxide BUN Creatinine Glucose POC Glucose 215 H 200 H 173 H Uric Acid Calcium Phosphorus Magnesium Iron TIBC AST ALT Total Creatine Kinase CK-MB (CK-2) Troponin T NT-Pro-B Natriuret Pep Total Protein Albumin Triglycerides HDL Cholesterol Folate Urine WBC (Auto) Urine Creatinine Urine Total Protein Vancomycin Trough 06/09/19 06/09/19 06/09/19 12:07 18:32 23:51 WBC RBC Hgb Hct MCV MCH MCHC RDW Plt Count Lymph % (Auto) [place] % (Auto) Eos % (Auto) Lymph # [place] # Eos # Seg Neutrophils % Seg Neuts % (Manual) Lymphocytes % (Manual) Monocytes % (Manual) Eosinophils % (Manual) Nucleated RBC % Seg Neutrophils # Seg Neutrophils # Man Lymphocytes # (Manual) Monocytes # (Manual) Eosinophils # (Manual) PT INR APTT Fibrinogen POC ABG pH ABG pH POC ABG pCO2 POC ABG pO2 ABG pO2 ABG HCO3 ABG O2 Saturation ABG Base Excess ABG Hemoglobin Oxyhemoglobin Sodium Potassium Chloride Carbon Dioxide BUN Creatinine Glucose POC Glucose 117 H 169 H 147 H Uric Acid Calcium Phosphorus Magnesium Iron TIBC AST ALT Total Creatine Kinase CK-MB (CK-2) Troponin T NT-Pro-B Natriuret Pep Total Protein Albumin Triglycerides HDL Cholesterol Folate Urine WBC (Auto) Urine Creatinine Urine Total Protein Vancomycin Trough 06/10/19 06/10/19 06/10/19 05:45 05:45 06:01 WBC 14.6 H RBC Hgb 9.9 L Hct 32.2 L MCV MCH 27 L MCHC 31 L RDW 19.6 H Plt Count Lymph % (Auto) 10.5 L [place] % (Auto) 9.4 H Eos % (Auto) Lymph # [place] # 1.4 H Eos # Seg Neutrophils % 79.9 H Seg Neuts % (Manual) Lymphocytes % (Manual) Monocytes % (Manual) Eosinophils % (Manual) Nucleated RBC % Seg Neutrophils # 11.7 H Seg Neutrophils # Man Lymphocytes # (Manual) Monocytes # (Manual) Eosinophils # (Manual) PT INR APTT Fibrinogen POC ABG pH ABG pH POC ABG pCO2 POC ABG pO2 ABG pO2 ABG HCO3 ABG O2 Saturation ABG Base Excess ABG Hemoglobin Oxyhemoglobin Sodium 150 H Potassium Chloride 108.3 H Carbon Dioxide BUN 49 H Creatinine Glucose 172 H POC Glucose 165 H Uric Acid Calcium Phosphorus Magnesium 1.40 L Iron TIBC AST ALT Total Creatine Kinase CK-MB (CK-2) Troponin T NT-Pro-B Natriuret Pep Total Protein Albumin Triglycerides HDL Cholesterol Folate Urine WBC (Auto) Urine Creatinine Urine Total Protein Vancomycin Trough 06/10/19 06/10/19 06/11/19 12:11 18:30 00:02 WBC RBC Hgb Hct MCV MCH MCHC RDW Plt Count Lymph % (Auto) [place] % (Auto) Eos % (Auto) Lymph # [place] # Eos # Seg Neutrophils % Seg Neuts % (Manual) Lymphocytes % (Manual) Monocytes % (Manual) Eosinophils % (Manual) Nucleated RBC % Seg Neutrophils # Seg Neutrophils # Man Lymphocytes # (Manual) Monocytes # (Manual) Eosinophils # (Manual) PT INR APTT Fibrinogen POC ABG pH ABG pH POC ABG pCO2 POC ABG pO2 ABG pO2 ABG HCO3 ABG O2 Saturation ABG Base Excess ABG Hemoglobin Oxyhemoglobin Sodium Potassium Chloride Carbon Dioxide BUN Creatinine Glucose POC Glucose 150 H 154 H 130 H Uric Acid Calcium Phosphorus Magnesium Iron TIBC AST ALT Total Creatine Kinase CK-MB (CK-2) Troponin T NT-Pro-B Natriuret Pep Total Protein Albumin Triglycerides HDL Cholesterol Folate Urine WBC (Auto) Urine Creatinine Urine Total Protein Vancomycin Trough 06/11/19 06/11/19 06/11/19 05:33 08:34 12:33 WBC RBC Hgb Hct MCV MCH MCHC RDW Plt Count Lymph % (Auto) [place] % (Auto) Eos % (Auto) Lymph # [place] # Eos # Seg Neutrophils % Seg Neuts % (Manual) Lymphocytes % (Manual) Monocytes % (Manual) Eosinophils % (Manual) Nucleated RBC % Seg Neutrophils # Seg Neutrophils # Man Lymphocytes # (Manual) Monocytes # (Manual) Eosinophils # (Manual) PT INR APTT Fibrinogen POC ABG pH ABG pH POC ABG pCO2 POC ABG pO2 ABG pO2 ABG HCO3 ABG O2 Saturation ABG Base Excess ABG Hemoglobin Oxyhemoglobin Sodium 154 H Potassium Chloride 111.6 H Carbon Dioxide BUN 41 H Creatinine Glucose 147 H POC Glucose 183 H 185 H Uric Acid Calcium Phosphorus Magnesium Iron TIBC AST ALT Total Creatine Kinase CK-MB (CK-2) Troponin T NT-Pro-B Natriuret Pep Total Protein Albumin Triglycerides HDL Cholesterol Folate Urine WBC (Auto) Urine Creatinine Urine Total Protein Vancomycin Trough 06/11/19 06/11/19 06/12/19 18:22 23:46 03:21 WBC 11.9 H RBC 3.61 L Hgb 9.9 L Hct 31.7 L MCV MCH 27 L MCHC 31 L RDW 19.3 H Plt Count Lymph % (Auto) 10.6 L [place] % (Auto) 8.6 H Eos % (Auto) Lymph # [place] # 1.0 H Eos # Seg Neutrophils % 80.6 H Seg Neuts % (Manual) Lymphocytes % (Manual) Monocytes % (Manual) Eosinophils % (Manual) Nucleated RBC % Seg Neutrophils # 9.6 H Seg Neutrophils # Man Lymphocytes # (Manual) Monocytes # (Manual) Eosinophils # (Manual) PT INR APTT Fibrinogen POC ABG pH ABG pH POC ABG pCO2 POC ABG pO2 ABG pO2 ABG HCO3 ABG O2 Saturation ABG Base Excess ABG Hemoglobin Oxyhemoglobin Sodium Potassium Chloride Carbon Dioxide BUN Creatinine Glucose POC Glucose 158 H 182 H Uric Acid Calcium Phosphorus Magnesium Iron TIBC AST ALT Total Creatine Kinase CK-MB (CK-2) Troponin T NT-Pro-B Natriuret Pep Total Protein Albumin Triglycerides HDL Cholesterol Folate Urine WBC (Auto) Urine Creatinine Urine Total Protein Vancomycin Trough 06/12/19 06/12/19 06/12/19 03:21 06:04 11:28 WBC RBC Hgb Hct MCV MCH MCHC RDW Plt Count Lymph % (Auto) [place] % (Auto) Eos % (Auto) Lymph # [place] # Eos # Seg Neutrophils % Seg Neuts % (Manual) Lymphocytes % (Manual) Monocytes % (Manual) Eosinophils % (Manual) Nucleated RBC % Seg Neutrophils # Seg Neutrophils # Man Lymphocytes # (Manual) Monocytes # (Manual) Eosinophils # (Manual) PT INR APTT Fibrinogen POC ABG pH ABG pH POC ABG pCO2 POC ABG pO2 ABG pO2 ABG HCO3 ABG O2 Saturation ABG Base Excess ABG Hemoglobin Oxyhemoglobin Sodium 148 H Potassium Chloride 107.3 H Carbon Dioxide BUN 34 H Creatinine 0.7 L Glucose 194 H POC Glucose 133 H 167 H Uric Acid Calcium Phosphorus Magnesium 1.40 L Iron TIBC AST ALT Total Creatine Kinase CK-MB (CK-2) Troponin T NT-Pro-B Natriuret Pep Total Protein Albumin Triglycerides HDL Cholesterol Folate Urine WBC (Auto) Urine Creatinine Urine Total Protein Vancomycin Trough 06/12/19 06/12/19 06/13/19 18:47 21:27 00:04 WBC RBC Hgb Hct MCV MCH MCHC RDW Plt Count Lymph % (Auto) [place] % (Auto) Eos % (Auto) Lymph # [place] # Eos # Seg Neutrophils % Seg Neuts % (Manual) Lymphocytes % (Manual) Monocytes % (Manual) Eosinophils % (Manual) Nucleated RBC % Seg Neutrophils # Seg Neutrophils # Man Lymphocytes # (Manual) Monocytes # (Manual) Eosinophils # (Manual) PT INR APTT Fibrinogen POC ABG pH ABG pH POC ABG pCO2 POC ABG pO2 ABG pO2 ABG HCO3 ABG O2 Saturation ABG Base Excess ABG Hemoglobin Oxyhemoglobin Sodium Potassium Chloride Carbon Dioxide BUN Creatinine Glucose POC Glucose 210 H 263 H 248 H Uric Acid Calcium Phosphorus Magnesium Iron TIBC AST ALT Total Creatine Kinase CK-MB (CK-2) Troponin T NT-Pro-B Natriuret Pep Total Protein Albumin Triglycerides HDL Cholesterol Folate Urine WBC (Auto) Urine Creatinine Urine Total Protein Vancomycin Trough 06/13/19 06/13/19 06/13/19 04:32 05:46 13:30 WBC RBC Hgb Hct MCV MCH MCHC RDW Plt Count Lymph % (Auto) [place] % (Auto) Eos % (Auto) Lymph # [place] # Eos # Seg Neutrophils % Seg Neuts % (Manual) Lymphocytes % (Manual) Monocytes % (Manual) Eosinophils % (Manual) Nucleated RBC % Seg Neutrophils # Seg Neutrophils # Man Lymphocytes # (Manual) Monocytes # (Manual) Eosinophils # (Manual) PT INR APTT Fibrinogen POC ABG pH ABG pH POC ABG pCO2 POC ABG pO2 ABG pO2 ABG HCO3 ABG O2 Saturation ABG Base Excess ABG Hemoglobin Oxyhemoglobin Sodium Potassium Chloride Carbon Dioxide BUN 27 H Creatinine 0.7 L Glucose 253 H POC Glucose 201 H 241 H Uric Acid Calcium Phosphorus Magnesium Iron TIBC AST ALT Total Creatine Kinase CK-MB (CK-2) Troponin T NT-Pro-B Natriuret Pep Total Protein Albumin Triglycerides HDL Cholesterol Folate Urine WBC (Auto) Urine Creatinine Urine Total Protein Vancomycin Trough 06/13/19 06/13/19 06/14/19 17:33 23:49 04:50 WBC RBC Hgb Hct MCV MCH MCHC RDW Plt Count Lymph % (Auto) [place] % (Auto) Eos % (Auto) Lymph # [place] # Eos # Seg Neutrophils % Seg Neuts % (Manual) Lymphocytes % (Manual) Monocytes % (Manual) Eosinophils % (Manual) Nucleated RBC % Seg Neutrophils # Seg Neutrophils # Man Lymphocytes # (Manual) Monocytes # (Manual) Eosinophils # (Manual) PT INR APTT Fibrinogen POC ABG pH ABG pH POC ABG pCO2 POC ABG pO2 ABG pO2 ABG HCO3 ABG O2 Saturation ABG Base Excess ABG Hemoglobin Oxyhemoglobin Sodium Potassium Chloride Carbon Dioxide BUN 37 H Creatinine Glucose 256 H POC Glucose 264 H 236 H Uric Acid Calcium Phosphorus Magnesium Iron TIBC AST ALT Total Creatine Kinase CK-MB (CK-2) Troponin T NT-Pro-B Natriuret Pep Total Protein Albumin Triglycerides HDL Cholesterol Folate Urine WBC (Auto) Urine Creatinine Urine Total Protein Vancomycin Trough 06/14/19 06/14/19 06/14/19 05:26 12:31 18:32 WBC RBC Hgb Hct MCV MCH MCHC RDW Plt Count Lymph % (Auto) [place] % (Auto) Eos % (Auto) Lymph # [place] # Eos # Seg Neutrophils % Seg Neuts % (Manual) Lymphocytes % (Manual) Monocytes % (Manual) Eosinophils % (Manual) Nucleated RBC % Seg Neutrophils # Seg Neutrophils # Man Lymphocytes # (Manual) Monocytes # (Manual) Eosinophils # (Manual) PT INR APTT Fibrinogen POC ABG pH ABG pH POC ABG pCO2 POC ABG pO2 ABG pO2 ABG HCO3 ABG O2 Saturation ABG Base Excess ABG Hemoglobin Oxyhemoglobin Sodium Potassium Chloride Carbon Dioxide BUN Creatinine Glucose POC Glucose 239 H 116 H 247 H Uric Acid Calcium Phosphorus Magnesium Iron TIBC AST ALT Total Creatine Kinase CK-MB (CK-2) Troponin T NT-Pro-B Natriuret Pep Total Protein Albumin Triglycerides HDL Cholesterol Folate Urine WBC (Auto) Urine Creatinine Urine Total Protein Vancomycin Trough 06/14/19 06/15/1906/15/20 23:57 04:05 05:55 WBC RBC Hgb Hct MCV MCH MCHC RDW Plt Count Lymph % (Auto) [place] % (Auto) Eos % (Auto) Lymph # [place] # Eos # Seg Neutrophils % Seg Neuts % (Manual) Lymphocytes % (Manual) Monocytes % (Manual) Eosinophils % (Manual) Nucleated RBC % Seg Neutrophils # Seg Neutrophils # Man Lymphocytes # (Manual) Monocytes # (Manual) Eosinophils # (Manual) PT INR APTT Fibrinogen POC ABG pH ABG pH POC ABG pCO2 POC ABG pO2 ABG pO2 ABG HCO3 ABG O2 Saturation ABG Base Excess ABG Hemoglobin Oxyhemoglobin Sodium Potassium Chloride Carbon Dioxide BUN 46 H Creatinine 0.7 L Glucose 265 H POC Glucose 206 H 265 H Uric Acid Calcium Phosphorus Magnesium Iron TIBC AST ALT Total Creatine Kinase CK-MB (CK-2) Troponin T NT-Pro-B Natriuret Pep Total Protein Albumin Triglycerides HDL Cholesterol Folate Urine WBC (Auto) Urine Creatinine Urine Total Protein Vancomycin Trough 06/15/19 06/15/19 06/15/19 12:08 18:45 23:41 WBC RBC Hgb Hct MCV MCH MCHC RDW Plt Count Lymph % (Auto) [place] % (Auto) Eos % (Auto) Lymph # [place] # Eos # Seg Neutrophils % Seg Neuts % (Manual) Lymphocytes % (Manual) Monocytes % (Manual) Eosinophils % (Manual) Nucleated RBC % Seg Neutrophils # Seg Neutrophils # Man Lymphocytes # (Manual) Monocytes # (Manual) Eosinophils # (Manual) PT INR APTT Fibrinogen POC ABG pH ABG pH POC ABG pCO2 POC ABG pO2 ABG pO2 ABG HCO3 ABG O2 Saturation ABG Base Excess ABG Hemoglobin Oxyhemoglobin Sodium Potassium Chloride Carbon Dioxide BUN Creatinine Glucose POC Glucose 224 H 177 H 193 H Uric Acid Calcium Phosphorus Magnesium Iron TIBC AST ALT Total Creatine Kinase CK-MB (CK-2) Troponin T NT-Pro-B Natriuret Pep Total Protein Albumin Triglycerides HDL Cholesterol Folate Urine WBC (Auto) Urine Creatinine Urine Total Protein Vancomycin Trough 06/16/19 06/16/19 06/16/19 05:00 05:00 05:40 WBC 11.9 H RBC 3.24 L Hgb 9.0 L Hct 29.0 L MCV MCH MCHC 31 L RDW 18.6 H Plt Count 111 L Lymph % (Auto) [place] % (Auto) Eos % (Auto) Lymph # [place] # Eos # Seg Neutrophils % Seg Neuts % (Manual) 92.0 H Lymphocytes % (Manual) 2.0 L Monocytes % (Manual) Eosinophils % (Manual) Nucleated RBC % Seg Neutrophils # Seg Neutrophils # Man 10.9 H Lymphocytes # (Manual) 0.2 L Monocytes # (Manual) Eosinophils # (Manual) PT INR APTT Fibrinogen POC ABG pH ABG pH POC ABG pCO2 POC ABG pO2 ABG pO2 ABG HCO3 ABG O2 Saturation ABG Base Excess ABG Hemoglobin Oxyhemoglobin Sodium Potassium Chloride Carbon Dioxide 33 H BUN 49 H Creatinine 0.7 L Glucose 264 H POC Glucose 247 H Uric Acid Calcium Phosphorus Magnesium Iron TIBC AST ALT Total Creatine Kinase CK-MB (CK-2) Troponin T NT-Pro-B Natriuret Pep Total Protein Albumin Triglycerides HDL Cholesterol Folate Urine WBC (Auto) Urine Creatinine Urine Total Protein Vancomycin Trough 06/16/19 06/16/19 06/16/19 12:03 17:11 18:11 WBC RBC Hgb Hct MCV MCH MCHC RDW Plt Count Lymph % (Auto) [place] % (Auto) Eos % (Auto) Lymph # [place] # Eos # Seg Neutrophils % Seg Neuts % (Manual) Lymphocytes % (Manual) Monocytes % (Manual) Eosinophils % (Manual) Nucleated RBC % Seg Neutrophils # Seg Neutrophils # Man Lymphocytes # (Manual) Monocytes # (Manual) Eosinophils # (Manual) PT INR APTT Fibrinogen POC ABG pH ABG pH 7.289 L POC ABG pCO2 POC ABG pO2 ABG pO2 399.3 H ABG HCO3 30.1 H ABG O2 Saturation 99.6 H ABG Base Excess ABG Hemoglobin 8.6 L Oxyhemoglobin Sodium Potassium Chloride Carbon Dioxide BUN Creatinine Glucose POC Glucose 252 H 254 H Uric Acid Calcium Phosphorus Magnesium Iron TIBC AST ALT Total Creatine Kinase CK-MB (CK-2) Troponin T NT-Pro-B Natriuret Pep Total Protein Albumin Triglycerides HDL Cholesterol Folate Urine WBC (Auto) Urine Creatinine Urine Total Protein Vancomycin Trough 06/16/19 06/17/19 06/17/19 23:16 05:30 05:53 WBC RBC Hgb Hct MCV MCH MCHC RDW Plt Count Lymph % (Auto) [place] % (Auto) Eos % (Auto) Lymph # [place] # Eos # Seg Neutrophils % Seg Neuts % (Manual) Lymphocytes % (Manual) Monocytes % (Manual) Eosinophils % (Manual) Nucleated RBC % Seg Neutrophils # Seg Neutrophils # Man Lymphocytes # (Manual) Monocytes # (Manual) Eosinophils # (Manual) PT INR APTT Fibrinogen POC ABG pH ABG pH POC ABG pCO2 POC ABG pO2 ABG pO2 ABG HCO3 ABG O2 Saturation ABG Base Excess ABG Hemoglobin Oxyhemoglobin Sodium 147 H Potassium Chloride Carbon Dioxide 32 H BUN 60 H Creatinine Glucose 205 H POC Glucose 238 H 211 H Uric Acid Calcium Phosphorus Magnesium Iron TIBC AST ALT Total Creatine Kinase CK-MB (CK-2) Troponin T NT-Pro-B Natriuret Pep Total Protein Albumin Triglycerides HDL Cholesterol Folate Urine WBC (Auto) Urine Creatinine Urine Total Protein Vancomycin Trough 06/17/19 06/17/19 06/17/19 09:50 12:27 12:45 WBC RBC 2.79 L Hgb 8.2 L Hct 24.6 L MCV MCH MCHC RDW 18.5 H Plt Count 95 L Lymph % (Auto) [place] % (Auto) Eos % (Auto) Lymph # [place] # Eos # Seg Neutrophils % Seg Neuts % (Manual) Lymphocytes % (Manual) Monocytes % (Manual) Eosinophils % (Manual) Nucleated RBC % Seg Neutrophils # Seg Neutrophils # Man Lymphocytes # (Manual) Monocytes # (Manual) Eosinophils # (Manual) PT INR APTT Fibrinogen 194 L POC ABG pH ABG pH POC ABG pCO2 POC ABG pO2 ABG pO2 ABG HCO3 ABG O2 Saturation ABG Base Excess ABG Hemoglobin Oxyhemoglobin Sodium Potassium Chloride Carbon Dioxide BUN Creatinine Glucose POC Glucose 224 H Uric Acid Calcium Phosphorus Magnesium Iron TIBC AST ALT Total Creatine Kinase CK-MB (CK-2) Troponin T NT-Pro-B Natriuret Pep Total Protein Albumin Triglycerides HDL Cholesterol Folate Urine WBC (Auto) Urine Creatinine Urine Total Protein Vancomycin Trough 06/17/19 06/17/19 06/17/19 18:41 22:00 23:23 WBC RBC Hgb Hct MCV MCH MCHC RDW Plt Count Lymph % (Auto) [place] % (Auto) Eos % (Auto) Lymph # [place] # Eos # Seg Neutrophils % Seg Neuts % (Manual) Lymphocytes % (Manual) Monocytes % (Manual) Eosinophils % (Manual) Nucleated RBC % Seg Neutrophils # Seg Neutrophils # Man Lymphocytes # (Manual) Monocytes # (Manual) Eosinophils # (Manual) PT INR APTT Fibrinogen POC ABG pH ABG pH POC ABG pCO2 POC ABG pO2 ABG pO2 ABG HCO3 ABG O2 Saturation ABG Base Excess ABG Hemoglobin Oxyhemoglobin Sodium Potassium Chloride Carbon Dioxide BUN Creatinine Glucose POC Glucose 198 H 166 H 171 H Uric Acid Calcium Phosphorus Magnesium Iron TIBC AST ALT Total Creatine Kinase CK-MB (CK-2) Troponin T NT-Pro-B Natriuret Pep Total Protein Albumin Triglycerides HDL Cholesterol Folate Urine WBC (Auto) Urine Creatinine Urine Total Protein Vancomycin Trough 06/17/19 06/18/19 06/18/19 Unknown 03:50 04:25 WBC RBC Hgb Hct MCV MCH MCHC RDW Plt Count Lymph % (Auto) [place] % (Auto) Eos % (Auto) Lymph # [place] # Eos # Seg Neutrophils % Seg Neuts % (Manual) Lymphocytes % (Manual) Monocytes % (Manual) Eosinophils % (Manual) Nucleated RBC % Seg Neutrophils # Seg Neutrophils # Man Lymphocytes # (Manual) Monocytes # (Manual) Eosinophils # (Manual) PT INR APTT Fibrinogen POC ABG pH ABG pH 7.564 H 7.499 H POC ABG pCO2 POC ABG pO2 ABG pO2 238.6 H 130.8 H ABG HCO3 33.6 H 32.5 H ABG O2 Saturation 99.4 H ABG Base Excess 10.6 H 8.5 H ABG Hemoglobin 7.9 L 8.8 L Oxyhemoglobin Sodium 151 H Potassium 3.4 L Chloride Carbon Dioxide BUN 66 H Creatinine Glucose 189 H POC Glucose Uric Acid Calcium Phosphorus Magnesium Iron TIBC AST ALT Total Creatine Kinase CK-MB (CK-2) Troponin T NT-Pro-B Natriuret Pep Total Protein Albumin Triglycerides HDL Cholesterol Folate Urine WBC (Auto) Urine Creatinine Urine Total Protein Vancomycin Trough 06/18/19 06/18/19 06/18/19 05:25 05:27 11:50 WBC RBC 2.61 L Hgb 7.4 L Hct 22.9 L MCV MCH MCHC RDW 19.9 H Plt Count 81 L Lymph % (Auto) 12.9 L [place] % (Auto) 7.7 H Eos % (Auto) Lymph # 1.1 L [place] # Eos # Seg Neutrophils % 77.4 H Seg Neuts % (Manual) Lymphocytes % (Manual) Monocytes % (Manual) Eosinophils % (Manual) Nucleated RBC % Seg Neutrophils # Seg Neutrophils # Man Lymphocytes # (Manual) Monocytes # (Manual) Eosinophils # (Manual) PT INR APTT Fibrinogen POC ABG pH ABG pH POC ABG pCO2 POC ABG pO2 ABG pO2 ABG HCO3 ABG O2 Saturation ABG Base Excess ABG Hemoglobin Oxyhemoglobin Sodium Potassium Chloride Carbon Dioxide BUN Creatinine Glucose POC Glucose 186 H 263 H Uric Acid Calcium Phosphorus Magnesium Iron TIBC AST ALT Total Creatine Kinase CK-MB (CK-2) Troponin T NT-Pro-B Natriuret Pep Total Protein Albumin Triglycerides HDL Cholesterol Folate Urine WBC (Auto) Urine Creatinine Urine Total Protein Vancomycin Trough 06/18/19 06/18/19 06/18/19 18:35 21:31 23:21 WBC RBC Hgb Hct MCV MCH MCHC RDW Plt Count Lymph % (Auto) [place] % (Auto) Eos % (Auto) Lymph # [place] # Eos # Seg Neutrophils % Seg Neuts % (Manual) Lymphocytes % (Manual) Monocytes % (Manual) Eosinophils % (Manual) Nucleated RBC % Seg Neutrophils # Seg Neutrophils # Man Lymphocytes # (Manual) Monocytes # (Manual) Eosinophils # (Manual) PT INR APTT Fibrinogen POC ABG pH ABG pH POC ABG pCO2 POC ABG pO2 ABG pO2 ABG HCO3 ABG O2 Saturation ABG Base Excess ABG Hemoglobin Oxyhemoglobin Sodium Potassium Chloride Carbon Dioxide BUN Creatinine Glucose POC Glucose 154 H 186 H 202 H Uric Acid Calcium Phosphorus Magnesium Iron TIBC AST ALT Total Creatine Kinase CK-MB (CK-2) Troponin T NT-Pro-B Natriuret Pep Total Protein Albumin Triglycerides HDL Cholesterol Folate Urine WBC (Auto) Urine Creatinine Urine Total Protein Vancomycin Trough 06/19/19 06/19/19 06/19/19 03:18 04:30 04:30 WBC RBC 2.65 L Hgb 7.5 L Hct 23.1 L MCV MCH MCHC RDW 19.4 H Plt Count 74 L Lymph % (Auto) 8.8 L [place] % (Auto) 9.4 H Eos % (Auto) 4.7 H Lymph # 0.6 L [place] # Eos # Seg Neutrophils % 76.6 H Seg Neuts % (Manual) Lymphocytes % (Manual) Monocytes % (Manual) Eosinophils % (Manual) Nucleated RBC % Seg Neutrophils # Seg Neutrophils # Man Lymphocytes # (Manual) Monocytes # (Manual) Eosinophils # (Manual) PT INR APTT Fibrinogen POC ABG pH ABG pH 7.452 H POC ABG pCO2 POC ABG pO2 ABG pO2 105.5 H ABG HCO3 32.3 H ABG O2 Saturation ABG Base Excess 7.6 H ABG Hemoglobin 6.9 L Oxyhemoglobin Sodium 150 H Potassium 3.3 L Chloride Carbon Dioxide 31 H BUN 56 H Creatinine Glucose 197 H POC Glucose Uric Acid Calcium Phosphorus Magnesium Iron TIBC AST ALT Total Creatine Kinase CK-MB (CK-2) Troponin T NT-Pro-B Natriuret Pep Total Protein Albumin Triglycerides 210 H HDL Cholesterol Folate Urine WBC (Auto) Urine Creatinine Urine Total Protein Vancomycin Trough 06/19/19 06/19/19 06/19/19 05:24 12:18 18:55 WBC RBC Hgb Hct MCV MCH MCHC RDW Plt Count Lymph % (Auto) [place] % (Auto) Eos % (Auto) Lymph # [place] # Eos # Seg Neutrophils % Seg Neuts % (Manual) Lymphocytes % (Manual) Monocytes % (Manual) Eosinophils % (Manual) Nucleated RBC % Seg Neutrophils # Seg Neutrophils # Man Lymphocytes # (Manual) Monocytes # (Manual) Eosinophils # (Manual) PT INR APTT Fibrinogen POC ABG pH ABG pH POC ABG pCO2 POC ABG pO2 ABG pO2 ABG HCO3 ABG O2 Saturation ABG Base Excess ABG Hemoglobin Oxyhemoglobin Sodium Potassium Chloride Carbon Dioxide BUN Creatinine Glucose POC Glucose 176 H 260 H 192 H Uric Acid Calcium Phosphorus Magnesium Iron TIBC AST ALT Total Creatine Kinase CK-MB (CK-2) Troponin T NT-Pro-B Natriuret Pep Total Protein Albumin Triglycerides HDL Cholesterol Folate Urine WBC (Auto) Urine Creatinine Urine Total Protein Vancomycin Trough 06/19/19 06/19/19 06/20/19 22:57 23:46 04:40 WBC RBC 2.79 L Hgb 7.9 L Hct 24.3 L MCV MCH MCHC RDW 19.6 H Plt Count 92 L Lymph % (Auto) 9.2 L [place] % (Auto) 12.0 H Eos % (Auto) 5.2 H Lymph # 0.9 L [place] # 1.2 H Eos # 0.5 H Seg Neutrophils % 73.3 H Seg Neuts % (Manual) Lymphocytes % (Manual) Monocytes % (Manual) Eosinophils % (Manual) Nucleated RBC % Seg Neutrophils # Seg Neutrophils # Man Lymphocytes # (Manual) Monocytes # (Manual) Eosinophils # (Manual) PT INR APTT Fibrinogen POC ABG pH ABG pH POC ABG pCO2 POC ABG pO2 ABG pO2 ABG HCO3 ABG O2 Saturation ABG Base Excess ABG Hemoglobin Oxyhemoglobin Sodium Potassium Chloride Carbon Dioxide BUN Creatinine Glucose POC Glucose 145 H 216 H Uric Acid Calcium Phosphorus Magnesium Iron TIBC AST ALT Total Creatine Kinase CK-MB (CK-2) Troponin T NT-Pro-B Natriuret Pep Total Protein Albumin Triglycerides HDL Cholesterol Folate Urine WBC (Auto) Urine Creatinine Urine Total Protein Vancomycin Trough 06/20/19 06/20/19 06/20/19 04:40 05:40 05:54 WBC RBC Hgb Hct MCV MCH MCHC RDW Plt Count Lymph % (Auto) [place] % (Auto) Eos % (Auto) Lymph # [place] # Eos # Seg Neutrophils % Seg Neuts % (Manual) Lymphocytes % (Manual) Monocytes % (Manual) Eosinophils % (Manual) Nucleated RBC % Seg Neutrophils # Seg Neutrophils # Man Lymphocytes # (Manual) Monocytes # (Manual) Eosinophils # (Manual) PT INR APTT Fibrinogen POC ABG pH ABG pH 7.455 H POC ABG pCO2 POC ABG pO2 ABG pO2 60.9 L ABG HCO3 30.3 H ABG O2 Saturation 92.3 L ABG Base Excess 5.8 H ABG Hemoglobin 8.2 L Oxyhemoglobin 90.1 L Sodium Potassium 3.5 L Chloride Carbon Dioxide BUN 59 H Creatinine Glucose 200 H POC Glucose 190 H Uric Acid Calcium Phosphorus Magnesium 1.60 L Iron TIBC AST ALT Total Creatine Kinase CK-MB (CK-2) Troponin T NT-Pro-B Natriuret Pep Total Protein Albumin Triglycerides HDL Cholesterol Folate Urine WBC (Auto) Urine Creatinine Urine Total Protein Vancomycin Trough 06/20/19 06/20/19 06/20/19 09:12 09:12 12:24 WBC RBC Hgb Hct MCV MCH MCHC RDW Plt Count Lymph % (Auto) [place] % (Auto) Eos % (Auto) Lymph # [place] # Eos # Seg Neutrophils % Seg Neuts % (Manual) Lymphocytes % (Manual) Monocytes % (Manual) Eosinophils % (Manual) Nucleated RBC % Seg Neutrophils # Seg Neutrophils # Man Lymphocytes # (Manual) Monocytes # (Manual) Eosinophils # (Manual) PT INR APTT Fibrinogen POC ABG pH ABG pH POC ABG pCO2 POC ABG pO2 ABG pO2 ABG HCO3 ABG O2 Saturation ABG Base Excess ABG Hemoglobin Oxyhemoglobin Sodium Potassium Chloride Carbon Dioxide BUN Creatinine Glucose POC Glucose 225 H Uric Acid Calcium Phosphorus Magnesium Iron 45 L TIBC 110 L AST ALT Total Creatine Kinase CK-MB (CK-2) Troponin T NT-Pro-B Natriuret Pep Total Protein Albumin Triglycerides HDL Cholesterol Folate 7.01 L Urine WBC (Auto) Urine Creatinine Urine Total Protein Vancomycin Trough 06/20/19 06/20/19 06/20/19 17:42 21:55 23:24 WBC RBC Hgb Hct MCV MCH MCHC RDW Plt Count Lymph % (Auto) [place] % (Auto) Eos % (Auto) Lymph # [place] # Eos # Seg Neutrophils % Seg Neuts % (Manual) Lymphocytes % (Manual) Monocytes % (Manual) Eosinophils % (Manual) Nucleated RBC % Seg Neutrophils # Seg Neutrophils # Man Lymphocytes # (Manual) Monocytes # (Manual) Eosinophils # (Manual) PT INR APTT Fibrinogen POC ABG pH ABG pH POC ABG pCO2 POC ABG pO2 ABG pO2 ABG HCO3 ABG O2 Saturation ABG Base Excess ABG Hemoglobin Oxyhemoglobin Sodium Potassium Chloride Carbon Dioxide BUN Creatinine Glucose POC Glucose 255 H 218 H 215 H Uric Acid Calcium Phosphorus Magnesium Iron TIBC AST ALT Total Creatine Kinase CK-MB (CK-2) Troponin T NT-Pro-B Natriuret Pep Total Protein Albumin Triglycerides HDL Cholesterol Folate Urine WBC (Auto) Urine Creatinine Urine Total Protein Vancomycin Trough 06/21/19 06/21/19 06/21/19 03:32 03:40 05:20 WBC 12.8 H RBC 3.03 L Hgb 8.5 L Hct 26.2 L MCV MCH MCHC RDW 19.4 H Plt Count 131 L Lymph % (Auto) [place] % (Auto) Eos % (Auto) Lymph # [place] # Eos # Seg Neutrophils % Seg Neuts % (Manual) 78.0 H Lymphocytes % (Manual) 5.0 L Monocytes % (Manual) 11.0 H Eosinophils % (Manual) Nucleated RBC % Seg Neutrophils # Seg Neutrophils # Man 10.0 H Lymphocytes # (Manual) 0.6 L Monocytes # (Manual) 1.4 H Eosinophils # (Manual) 0.5 H PT INR APTT Fibrinogen POC ABG pH ABG pH 7.476 H POC ABG pCO2 POC ABG pO2 ABG pO2 162.0 H ABG HCO3 26.8 H ABG O2 Saturation 99.1 H ABG Base Excess 3.1 H ABG Hemoglobin 8.6 L Oxyhemoglobin Sodium Potassium Chloride Carbon Dioxide BUN Creatinine Glucose POC Glucose 202 H Uric Acid Calcium Phosphorus Magnesium Iron TIBC AST ALT Total Creatine Kinase CK-MB (CK-2) Troponin T NT-Pro-B Natriuret Pep Total Protein Albumin Triglycerides HDL Cholesterol Folate Urine WBC (Auto) Urine Creatinine Urine Total Protein Vancomycin Trough 06/21/19 06/21/19 06/21/19 05:20 12:30 18:18 WBC RBC Hgb Hct MCV MCH MCHC RDW Plt Count Lymph % (Auto) [place] % (Auto) Eos % (Auto) Lymph # [place] # Eos # Seg Neutrophils % Seg Neuts % (Manual) Lymphocytes % (Manual) Monocytes % (Manual) Eosinophils % (Manual) Nucleated RBC % Seg Neutrophils # Seg Neutrophils # Man Lymphocytes # (Manual) Monocytes # (Manual) Eosinophils # (Manual) PT INR APTT Fibrinogen POC ABG pH ABG pH POC ABG pCO2 POC ABG pO2 ABG pO2 ABG HCO3 ABG O2 Saturation ABG Base Excess ABG Hemoglobin Oxyhemoglobin Sodium Potassium Chloride 97.7 L Carbon Dioxide BUN 69 H Creatinine Glucose 239 H POC Glucose 176 H 187 H Uric Acid Calcium Phosphorus Magnesium 2.40 H Iron TIBC AST ALT Total Creatine Kinase CK-MB (CK-2) Troponin T NT-Pro-B Natriuret Pep Total Protein Albumin Triglycerides HDL Cholesterol Folate Urine WBC (Auto) Urine Creatinine Urine Total Protein Vancomycin Trough 06/22/19 06/22/19 06/22/19 04:11 05:30 05:30 WBC 12.6 H RBC 3.10 L Hgb 8.7 L Hct 27.0 L MCV MCH MCHC RDW 19.8 H Plt Count Lymph % (Auto) [place] % (Auto) Eos % (Auto) Lymph # [place] # Eos # Seg Neutrophils % Seg Neuts % (Manual) Lymphocytes % (Manual) Monocytes % (Manual) 10.0 H Eosinophils % (Manual) Nucleated RBC % Seg Neutrophils # Seg Neutrophils # Man 8.7 H Lymphocytes # (Manual) Monocytes # (Manual) 1.3 H Eosinophils # (Manual) PT INR APTT Fibrinogen POC ABG pH ABG pH POC ABG pCO2 POC ABG pO2 ABG pO2 ABG HCO3 27.7 H ABG O2 Saturation ABG Base Excess 3.3 H ABG Hemoglobin 8.5 L Oxyhemoglobin 94.9 L Sodium Potassium Chloride Carbon Dioxide BUN 66 H Creatinine Glucose 103 H POC Glucose Uric Acid Calcium Phosphorus Magnesium Iron TIBC AST ALT Total Creatine Kinase CK-MB (CK-2) Troponin T NT-Pro-B Natriuret Pep Total Protein Albumin Triglycerides HDL Cholesterol Folate Urine WBC (Auto) Urine Creatinine Urine Total Protein Vancomycin Trough 06/22/19 06/22/19 06/23/19 17:43 23:25 02:00 WBC RBC Hgb Hct MCV MCH MCHC RDW Plt Count Lymph % (Auto) [place] % (Auto) Eos % (Auto) Lymph # [place] # Eos # Seg Neutrophils % Seg Neuts % (Manual) Lymphocytes % (Manual) Monocytes % (Manual) Eosinophils % (Manual) Nucleated RBC % Seg Neutrophils # Seg Neutrophils # Man Lymphocytes # (Manual) Monocytes # (Manual) Eosinophils # (Manual) PT INR APTT Fibrinogen POC ABG pH ABG pH 7.469 H POC ABG pCO2 POC ABG pO2 ABG pO2 58.7 L ABG HCO3 28.0 H ABG O2 Saturation 94.6 L ABG Base Excess 4.0 H ABG Hemoglobin 7.1 L Oxyhemoglobin 92.2 L Sodium Potassium Chloride Carbon Dioxide BUN Creatinine Glucose POC Glucose 143 H 106 H Uric Acid Calcium Phosphorus Magnesium Iron TIBC AST ALT Total Creatine Kinase CK-MB (CK-2) Troponin T NT-Pro-B Natriuret Pep Total Protein Albumin Triglycerides HDL Cholesterol Folate Urine WBC (Auto) Urine Creatinine Urine Total Protein Vancomycin Trough 06/23/19 06/23/19 06/23/19 05:24 05:24 11:43 WBC 12.6 H RBC 2.96 L Hgb 8.3 L Hct 25.5 L MCV MCH MCHC RDW 20.2 H Plt Count Lymph % (Auto) [place] % (Auto) Eos % (Auto) Lymph # [place] # Eos # Seg Neutrophils % Seg Neuts % (Manual) Lymphocytes % (Manual) 12.0 L Monocytes % (Manual) 11.0 H Eosinophils % (Manual) 6.0 H Nucleated RBC % Seg Neutrophils # Seg Neutrophils # Man 8.8 H Lymphocytes # (Manual) Monocytes # (Manual) 1.4 H Eosinophils # (Manual) 0.8 H PT INR APTT Fibrinogen POC ABG pH ABG pH POC ABG pCO2 POC ABG pO2 ABG pO2 ABG HCO3 ABG O2 Saturation ABG Base Excess ABG Hemoglobin Oxyhemoglobin Sodium 146 H Potassium 3.5 L Chloride Carbon Dioxide BUN 48 H Creatinine Glucose 123 H POC Glucose 120 H Uric Acid Calcium Phosphorus Magnesium Iron TIBC AST ALT Total Creatine Kinase CK-MB (CK-2) Troponin T NT-Pro-B Natriuret Pep Total Protein Albumin Triglycerides HDL Cholesterol Folate Urine WBC (Auto) Urine Creatinine Urine Total Protein Vancomycin Trough 06/23/19 06/24/19 06/24/19 17:39 06:53 06:53 WBC 12.3 H RBC 2.87 L Hgb 8.0 L Hct 24.9 L MCV MCH MCHC RDW 20.5 H Plt Count Lymph % (Auto) [place] % (Auto) 8.8 H Eos % (Auto) 4.4 H Lymph # [place] # 1.1 H Eos # 0.5 H Seg Neutrophils % Seg Neuts % (Manual) Lymphocytes % (Manual) Monocytes % (Manual) Eosinophils % (Manual) Nucleated RBC % Seg Neutrophils # Seg Neutrophils # Man Lymphocytes # (Manual) Monocytes # (Manual) Eosinophils # (Manual) PT INR APTT Fibrinogen POC ABG pH ABG pH POC ABG pCO2 POC ABG pO2 ABG pO2 ABG HCO3 ABG O2 Saturation ABG Base Excess ABG Hemoglobin Oxyhemoglobin Sodium Potassium Chloride 107.1 H Carbon Dioxide 21 L BUN 29 H Creatinine 0.6 L Glucose 117 H POC Glucose 111 H Uric Acid Calcium Phosphorus Magnesium 1.60 L Iron TIBC AST ALT Total Creatine Kinase CK-MB (CK-2) Troponin T NT-Pro-B Natriuret Pep Total Protein Albumin Triglycerides HDL Cholesterol Folate Urine WBC (Auto) Urine Creatinine Urine Total Protein Vancomycin Trough 06/24/19 06/24/19 06/24/19 12:12 18:01 23:20 WBC RBC Hgb Hct MCV MCH MCHC RDW Plt Count Lymph % (Auto) [place] % (Auto) Eos % (Auto) Lymph # [place] # Eos # Seg Neutrophils % Seg Neuts % (Manual) Lymphocytes % (Manual) Monocytes % (Manual) Eosinophils % (Manual) Nucleated RBC % Seg Neutrophils # Seg Neutrophils # Man Lymphocytes # (Manual) Monocytes # (Manual) Eosinophils # (Manual) PT INR APTT Fibrinogen POC ABG pH ABG pH POC ABG pCO2 POC ABG pO2 ABG pO2 ABG HCO3 ABG O2 Saturation ABG Base Excess ABG Hemoglobin Oxyhemoglobin Sodium Potassium Chloride Carbon Dioxide BUN Creatinine Glucose POC Glucose 158 H 133 H 106 H Uric Acid Calcium Phosphorus Magnesium Iron TIBC AST ALT Total Creatine Kinase CK-MB (CK-2) Troponin T NT-Pro-B Natriuret Pep Total Protein Albumin Triglycerides HDL Cholesterol Folate Urine WBC (Auto) Urine Creatinine Urine Total Protein Vancomycin Trough 06/25/19 06/25/19 06/25/19 04:46 04:46 05:36 WBC 12.3 H RBC 2.98 L Hgb 8.3 L Hct 26.4 L MCV MCH MCHC 31 L RDW 20.1 H Plt Count Lymph % (Auto) [place] % (Auto) Eos % (Auto) Lymph # [place] # Eos # Seg Neutrophils % Seg Neuts % (Manual) Lymphocytes % (Manual) Monocytes % (Manual) 10.0 H Eosinophils % (Manual) Nucleated RBC % Seg Neutrophils # Seg Neutrophils # Man 8.1 H Lymphocytes # (Manual) Monocytes # (Manual) 1.2 H Eosinophils # (Manual) PT INR APTT Fibrinogen POC ABG pH ABG pH POC ABG pCO2 POC ABG pO2 ABG pO2 ABG HCO3 ABG O2 Saturation ABG Base Excess ABG Hemoglobin Oxyhemoglobin Sodium 148 H Potassium Chloride 108.0 H Carbon Dioxide BUN 21 H Creatinine 0.7 L Glucose 120 H POC Glucose 121 H Uric Acid Calcium Phosphorus Magnesium Iron TIBC AST ALT Total Creatine Kinase CK-MB (CK-2) Troponin T NT-Pro-B Natriuret Pep Total Protein Albumin Triglycerides HDL Cholesterol Folate Urine WBC (Auto) Urine Creatinine Urine Total Protein Vancomycin Trough 06/25/19 06/25/19 06/26/19 14:02 18:30 00:01 WBC RBC Hgb Hct MCV MCH MCHC RDW Plt Count Lymph % (Auto) [place] % (Auto) Eos % (Auto) Lymph # [place] # Eos # Seg Neutrophils % Seg Neuts % (Manual) Lymphocytes % (Manual) Monocytes % (Manual) Eosinophils % (Manual) Nucleated RBC % Seg Neutrophils # Seg Neutrophils # Man Lymphocytes # (Manual) Monocytes # (Manual) Eosinophils # (Manual) PT INR APTT Fibrinogen POC ABG pH ABG pH POC ABG pCO2 POC ABG pO2 ABG pO2 ABG HCO3 ABG O2 Saturation ABG Base Excess ABG Hemoglobin Oxyhemoglobin Sodium Potassium Chloride Carbon Dioxide BUN Creatinine Glucose POC Glucose 125 H 145 H 142 H Uric Acid Calcium Phosphorus Magnesium Iron TIBC AST ALT Total Creatine Kinase CK-MB (CK-2) Troponin T NT-Pro-B Natriuret Pep Total Protein Albumin Triglycerides HDL Cholesterol Folate Urine WBC (Auto) Urine Creatinine Urine Total Protein Vancomycin Trough 06/26/19 06/26/19 06/26/19 04:43 04:43 05:41 WBC RBC 3.02 L Hgb 8.6 L Hct 27.0 L MCV MCH MCHC RDW 20.4 H Plt Count Lymph % (Auto) [place] % (Auto) Eos % (Auto) Lymph # [place] # Eos # Seg Neutrophils % Seg Neuts % (Manual) Lymphocytes % (Manual) Monocytes % (Manual) 9.0 H Eosinophils % (Manual) Nucleated RBC % Seg Neutrophils # Seg Neutrophils # Man Lymphocytes # (Manual) Monocytes # (Manual) 1.0 H Eosinophils # (Manual) PT INR APTT Fibrinogen POC ABG pH ABG pH POC ABG pCO2 POC ABG pO2 ABG pO2 ABG HCO3 ABG O2 Saturation ABG Base Excess ABG Hemoglobin Oxyhemoglobin Sodium Potassium Chloride Carbon Dioxide BUN Creatinine 0.7 L Glucose 111 H POC Glucose 110 H Uric Acid Calcium Phosphorus Magnesium 1.60 L Iron TIBC AST ALT Total Creatine Kinase CK-MB (CK-2) Troponin T NT-Pro-B Natriuret Pep Total Protein Albumin Triglycerides HDL Cholesterol Folate Urine WBC (Auto) Urine Creatinine Urine Total Protein Vancomycin Trough 06/26/19 06/26/19 06/27/19 11:55 18:07 12:10 WBC RBC Hgb Hct MCV MCH MCHC RDW Plt Count Lymph % (Auto) [place] % (Auto) Eos % (Auto) Lymph # [place] # Eos # Seg Neutrophils % Seg Neuts % (Manual) Lymphocytes % (Manual) Monocytes % (Manual) Eosinophils % (Manual) Nucleated RBC % Seg Neutrophils # Seg Neutrophils # Man Lymphocytes # (Manual) Monocytes # (Manual) Eosinophils # (Manual) PT INR APTT Fibrinogen POC ABG pH ABG pH POC ABG pCO2 POC ABG pO2 ABG pO2 ABG HCO3 ABG O2 Saturation ABG Base Excess ABG Hemoglobin Oxyhemoglobin Sodium Potassium Chloride Carbon Dioxide BUN Creatinine Glucose POC Glucose 159 H 107 H 121 H Uric Acid Calcium Phosphorus Magnesium Iron TIBC AST ALT Total Creatine Kinase CK-MB (CK-2) Troponin T NT-Pro-B Natriuret Pep Total Protein Albumin Triglycerides HDL Cholesterol Folate Urine WBC (Auto) Urine Creatinine Urine Total Protein Vancomycin Trough 06/28/19 06/29/19 06/29/19 05:54 13:10 17:58 WBC RBC Hgb Hct MCV MCH MCHC RDW Plt Count Lymph % (Auto) [place] % (Auto) Eos % (Auto) Lymph # [place] # Eos # Seg Neutrophils % Seg Neuts % (Manual) Lymphocytes % (Manual) Monocytes % (Manual) Eosinophils % (Manual) Nucleated RBC % Seg Neutrophils # Seg Neutrophils # Man Lymphocytes # (Manual) Monocytes # (Manual) Eosinophils # (Manual) PT INR APTT Fibrinogen POC ABG pH ABG pH POC ABG pCO2 POC ABG pO2 ABG pO2 ABG HCO3 ABG O2 Saturation ABG Base Excess ABG Hemoglobin Oxyhemoglobin Sodium Potassium Chloride Carbon Dioxide BUN Creatinine Glucose POC Glucose 107 H 115 H 108 H Uric Acid Calcium Phosphorus Magnesium Iron TIBC AST ALT Total Creatine Kinase CK-MB (CK-2) Troponin T NT-Pro-B Natriuret Pep Total Protein Albumin Triglycerides HDL Cholesterol Folate Urine WBC (Auto) Urine Creatinine Urine Total Protein Vancomycin Trough 06/30/19 06/30/19 07/01/19 12:00 18:13 05:49 WBC RBC Hgb Hct MCV MCH MCHC RDW Plt Count Lymph % (Auto) [place] % (Auto) Eos % (Auto) Lymph # [place] # Eos # Seg Neutrophils % Seg Neuts % (Manual) Lymphocytes % (Manual) Monocytes % (Manual) Eosinophils % (Manual) Nucleated RBC % Seg Neutrophils # Seg Neutrophils # Man Lymphocytes # (Manual) Monocytes # (Manual) Eosinophils # (Manual) PT INR APTT Fibrinogen POC ABG pH ABG pH POC ABG pCO2 POC ABG pO2 ABG pO2 ABG HCO3 ABG O2 Saturation ABG Base Excess ABG Hemoglobin Oxyhemoglobin Sodium Potassium Chloride Carbon Dioxide BUN Creatinine Glucose POC Glucose 108 H 114 H 114 H Uric Acid Calcium Phosphorus Magnesium Iron TIBC AST ALT Total Creatine Kinase CK-MB (CK-2) Troponin T NT-Pro-B Natriuret Pep Total Protein Albumin Triglycerides HDL Cholesterol Folate Urine WBC (Auto) Urine Creatinine Urine Total Protein Vancomycin Trough 07/01/19 07/01/19 07/01/19 07:58 07:58 12:06 WBC 11.5 H RBC 3.24 L Hgb 9.0 L Hct 28.4 L MCV MCH MCHC RDW 20.8 H Plt Count Lymph % (Auto) 8.3 L [place] % (Auto) 10.0 H Eos % (Auto) Lymph # 0.9 L [place] # 1.2 H Eos # Seg Neutrophils % 79.4 H Seg Neuts % (Manual) Lymphocytes % (Manual) Monocytes % (Manual) Eosinophils % (Manual) Nucleated RBC % Seg Neutrophils # 9.1 H Seg Neutrophils # Man Lymphocytes # (Manual) Monocytes # (Manual) Eosinophils # (Manual) PT INR APTT Fibrinogen POC ABG pH ABG pH POC ABG pCO2 POC ABG pO2 ABG pO2 ABG HCO3 ABG O2 Saturation ABG Base Excess ABG Hemoglobin Oxyhemoglobin Sodium Potassium Chloride Carbon Dioxide BUN Creatinine 0.4 L Glucose 130 H POC Glucose 133 H Uric Acid Calcium Phosphorus Magnesium Iron TIBC AST ALT Total Creatine Kinase CK-MB (CK-2) Troponin T NT-Pro-B Natriuret Pep Total Protein Albumin Triglycerides HDL Cholesterol Folate Urine WBC (Auto) Urine Creatinine Urine Total Protein Vancomycin Trough 07/02/19 07/02/19 07/02/19 05:54 13:27 13:39 WBC RBC Hgb Hct MCV MCH MCHC RDW Plt Count Lymph % (Auto) Tillman % (Auto) Eos % (Auto) Lymph # Tillman # Eos # Seg Neutrophils % Seg Neuts % (Manual) Lymphocytes % (Manual) Monocytes % (Manual) Eosinophils % (Manual) Nucleated RBC % Seg Neutrophils # Seg Neutrophils # Man Lymphocytes # (Manual) Monocytes # (Manual) Eosinophils # (Manual) PT INR APTT Fibrinogen POC ABG pH ABG pH POC ABG pCO2 POC ABG pO2 ABG pO2 ABG HCO3 ABG O2 Saturation ABG Base Excess ABG Hemoglobin Oxyhemoglobin Sodium Potassium Chloride Carbon Dioxide BUN Creatinine Glucose POC Glucose 111 H 123 H 116 H Uric Acid Calcium Phosphorus Magnesium Iron TIBC AST ALT Total Creatine Kinase CK-MB (CK-2) Troponin T NT-Pro-B Natriuret Pep Total Protein Albumin Triglycerides HDL Cholesterol Folate Urine WBC (Auto) Urine Creatinine Urine Total Protein Vancomycin Trough 07/02/19 07/03/19 07/04/19 18:00 06:06 12:15 WBC RBC Hgb Hct MCV MCH MCHC RDW Plt Count Lymph % (Auto) [place] % (Auto) Eos % (Auto) Lymph # [place] # Eos # Seg Neutrophils % Seg Neuts % (Manual) Lymphocytes % (Manual) Monocytes % (Manual) Eosinophils % (Manual) Nucleated RBC % Seg Neutrophils # Seg Neutrophils # Man Lymphocytes # (Manual) Monocytes # (Manual) Eosinophils # (Manual) PT INR APTT Fibrinogen POC ABG pH ABG pH POC ABG pCO2 POC ABG pO2 ABG pO2 ABG HCO3 ABG O2 Saturation ABG Base Excess ABG Hemoglobin Oxyhemoglobin Sodium Potassium Chloride Carbon Dioxide BUN Creatinine Glucose POC Glucose 118 H 127 H 122 H Uric Acid Calcium Phosphorus Magnesium Iron TIBC AST ALT Total Creatine Kinase CK-MB (CK-2) Troponin T NT-Pro-B Natriuret Pep Total Protein Albumin Triglycerides HDL Cholesterol Folate Urine WBC (Auto) Urine Creatinine Urine Total Protein Vancomycin Trough 07/04/19 07/04/19 07/05/19 18:09 23:48 06:30 WBC RBC Hgb Hct MCV MCH MCHC RDW Plt Count Lymph % (Auto) [place] % (Auto) Eos % (Auto) Lymph # [place] # Eos # Seg Neutrophils % Seg Neuts % (Manual) Lymphocytes % (Manual) Monocytes % (Manual) Eosinophils % (Manual) Nucleated RBC % Seg Neutrophils # Seg Neutrophils # Man Lymphocytes # (Manual) Monocytes # (Manual) Eosinophils # (Manual) PT INR APTT Fibrinogen POC ABG pH ABG pH POC ABG pCO2 POC ABG pO2 ABG pO2 ABG HCO3 ABG O2 Saturation ABG Base Excess ABG Hemoglobin Oxyhemoglobin Sodium Potassium Chloride Carbon Dioxide BUN Creatinine Glucose POC Glucose 115 H 110 H 106 H Uric Acid Calcium Phosphorus Magnesium Iron TIBC AST ALT Total Creatine Kinase CK-MB (CK-2) Troponin T NT-Pro-B Natriuret Pep Total Protein Albumin Triglycerides HDL Cholesterol Folate Urine WBC (Auto) Urine Creatinine Urine Total Protein Vancomycin Trough 07/05/19 07/05/19 07/05/19 11:55 18:16 23:38 WBC RBC Hgb Hct MCV MCH MCHC RDW Plt Count Lymph % (Auto) [place] % (Auto) Eos % (Auto) Lymph # [place] # Eos # Seg Neutrophils % Seg Neuts % (Manual) Lymphocytes % (Manual) Monocytes % (Manual) Eosinophils % (Manual) Nucleated RBC % Seg Neutrophils # Seg Neutrophils # Man Lymphocytes # (Manual) Monocytes # (Manual) Eosinophils # (Manual) PT INR APTT Fibrinogen POC ABG pH ABG pH POC ABG pCO2 POC ABG pO2 ABG pO2 ABG HCO3 ABG O2 Saturation ABG Base Excess ABG Hemoglobin Oxyhemoglobin Sodium Potassium Chloride Carbon Dioxide BUN Creatinine Glucose POC Glucose 106 H 120 H 114 H Uric Acid Calcium Phosphorus Magnesium Iron TIBC AST ALT Total Creatine Kinase CK-MB (CK-2) Troponin T NT-Pro-B Natriuret Pep Total Protein Albumin Triglycerides HDL Cholesterol Folate Urine WBC (Auto) Urine Creatinine Urine Total Protein Vancomycin Trough 07/06/19 07/06/19 07/06/19 06:01 12:28 18:49 WBC RBC Hgb Hct MCV MCH MCHC RDW Plt Count Lymph % (Auto) [place] % (Auto) Eos % (Auto) Lymph # [place] # Eos # Seg Neutrophils % Seg Neuts % (Manual) Lymphocytes % (Manual) Monocytes % (Manual) Eosinophils % (Manual) Nucleated RBC % Seg Neutrophils # Seg Neutrophils # Man Lymphocytes # (Manual) Monocytes # (Manual) Eosinophils # (Manual) PT INR APTT Fibrinogen POC ABG pH ABG pH POC ABG pCO2 POC ABG pO2 ABG pO2 ABG HCO3 ABG O2 Saturation ABG Base Excess ABG Hemoglobin Oxyhemoglobin Sodium Potassium Chloride Carbon Dioxide BUN Creatinine Glucose POC Glucose 115 H 114 H 111 H Uric Acid Calcium Phosphorus Magnesium Iron TIBC AST ALT Total Creatine Kinase CK-MB (CK-2) Troponin T NT-Pro-B Natriuret Pep Total Protein Albumin Triglycerides HDL Cholesterol Folate Urine WBC (Auto) Urine Creatinine Urine Total Protein Vancomycin Trough 07/07/19 07/07/19 07/07/19 05:34 11:57 23:54 WBC RBC Hgb Hct MCV MCH MCHC RDW Plt Count Lymph % (Auto) [place] % (Auto) Eos % (Auto) Lymph # [place] # Eos # Seg Neutrophils % Seg Neuts % (Manual) Lymphocytes % (Manual) Monocytes % (Manual) Eosinophils % (Manual) Nucleated RBC % Seg Neutrophils # Seg Neutrophils # Man Lymphocytes # (Manual) Monocytes # (Manual) Eosinophils # (Manual) PT INR APTT Fibrinogen POC ABG pH ABG pH POC ABG pCO2 POC ABG pO2 ABG pO2 ABG HCO3 ABG O2 Saturation ABG Base Excess ABG Hemoglobin Oxyhemoglobin Sodium Potassium Chloride Carbon Dioxide BUN Creatinine Glucose POC Glucose 121 H 135 H 109 H Uric Acid Calcium Phosphorus Magnesium Iron TIBC AST ALT Total Creatine Kinase CK-MB (CK-2) Troponin T NT-Pro-B Natriuret Pep Total Protein Albumin Triglycerides HDL Cholesterol Folate Urine WBC (Auto) Urine Creatinine Urine Total Protein Vancomycin Trough 07/08/19 07/08/19 07/09/19 04:00 04:00 12:13 WBC RBC 3.30 L Hgb 9.3 L Hct 29.0 L MCV MCH MCHC RDW 19.9 H Plt Count Lymph % (Auto) [place] % (Auto) Eos % (Auto) Lymph # [place] # Eos # Seg Neutrophils % Seg Neuts % (Manual) 76.0 H Lymphocytes % (Manual) Monocytes % (Manual) Eosinophils % (Manual) Nucleated RBC % Seg Neutrophils # Seg Neutrophils # Man 8.4 H Lymphocytes # (Manual) Monocytes # (Manual) Eosinophils # (Manual) PT INR APTT Fibrinogen POC ABG pH ABG pH POC ABG pCO2 POC ABG pO2 ABG pO2 ABG HCO3 ABG O2 Saturation ABG Base Excess ABG Hemoglobin Oxyhemoglobin Sodium Potassium Chloride Carbon Dioxide BUN Creatinine 0.5 L Glucose 117 H POC Glucose 111 H Uric Acid Calcium Phosphorus Magnesium Iron TIBC AST ALT Total Creatine Kinase CK-MB (CK-2) Troponin T NT-Pro-B Natriuret Pep Total Protein Albumin Triglycerides HDL Cholesterol Folate Urine WBC (Auto) Urine Creatinine Urine Total Protein Vancomycin Trough 07/10/19 07/10/19 07/10/19 05:28 12:22 17:19 WBC RBC Hgb Hct MCV MCH MCHC RDW Plt Count Lymph % (Auto) [place] % (Auto) Eos % (Auto) Lymph # [place] # Eos # Seg Neutrophils % Seg Neuts % (Manual) Lymphocytes % (Manual) Monocytes % (Manual) Eosinophils % (Manual) Nucleated RBC % Seg Neutrophils # Seg Neutrophils # Man Lymphocytes # (Manual) Monocytes # (Manual) Eosinophils # (Manual) PT INR APTT Fibrinogen POC ABG pH ABG pH POC ABG pCO2 POC ABG pO2 ABG pO2 ABG HCO3 ABG O2 Saturation ABG Base Excess ABG Hemoglobin Oxyhemoglobin Sodium Potassium Chloride Carbon Dioxide BUN Creatinine Glucose POC Glucose 114 H 113 H 115 H Uric Acid Calcium Phosphorus Magnesium Iron TIBC AST ALT Total Creatine Kinase CK-MB (CK-2) Troponin T NT-Pro-B Natriuret Pep Total Protein Albumin Triglycerides HDL Cholesterol Folate Urine WBC (Auto) Urine Creatinine Urine Total Protein Vancomycin Trough 07/11/19 07/11/19 07/11/19 05:27 06:08 06:08 WBC 12.6 H RBC 3.26 L Hgb 9.2 L Hct 28.6 L MCV MCH MCHC RDW 19.6 H Plt Count Lymph % (Auto) [place] % (Auto) Eos % (Auto) Lymph # [place] # Eos # Seg Neutrophils % Seg Neuts % (Manual) Lymphocytes % (Manual) Monocytes % (Manual) Eosinophils % (Manual) Nucleated RBC % Seg Neutrophils # Seg Neutrophils # Man Lymphocytes # (Manual) Monocytes # (Manual) Eosinophils # (Manual) PT INR APTT Fibrinogen POC ABG pH ABG pH POC ABG pCO2 POC ABG pO2 ABG pO2 ABG HCO3 ABG O2 Saturation ABG Base Excess ABG Hemoglobin Oxyhemoglobin Sodium Potassium Chloride Carbon Dioxide 17 L D BUN Creatinine Glucose 117 H POC Glucose 114 H Uric Acid Calcium Phosphorus Magnesium Iron TIBC AST ALT Total Creatine Kinase CK-MB (CK-2) Troponin T NT-Pro-B Natriuret Pep Total Protein Albumin Triglycerides HDL Cholesterol Folate Urine WBC (Auto) Urine Creatinine Urine Total Protein Vancomycin Trough 07/12/19 07/13/19 07/13/19 18:33 03:55 03:55 WBC 11.4 H RBC 3.18 L Hgb 8.8 L Hct 27.4 L MCV MCH MCHC RDW 19.1 H Plt Count Lymph % (Auto) [place] % (Auto) Eos % (Auto) Lymph # [place] # Eos # Seg Neutrophils % Seg Neuts % (Manual) Lymphocytes % (Manual) Monocytes % (Manual) Eosinophils % (Manual) Nucleated RBC % Seg Neutrophils # Seg Neutrophils # Man Lymphocytes # (Manual) Monocytes # (Manual) Eosinophils # (Manual) PT INR APTT Fibrinogen POC ABG pH ABG pH POC ABG pCO2 POC ABG pO2 ABG pO2 ABG HCO3 ABG O2 Saturation ABG Base Excess ABG Hemoglobin Oxyhemoglobin Sodium Potassium Chloride 97.4 L Carbon Dioxide BUN Creatinine 0.5 L Glucose 121 H POC Glucose 106 H Uric Acid Calcium Phosphorus Magnesium Iron TIBC AST ALT Total Creatine Kinase CK-MB (CK-2) Troponin T NT-Pro-B Natriuret Pep Total Protein Albumin Triglycerides HDL Cholesterol Folate Urine WBC (Auto) Urine Creatinine Urine Total Protein Vancomycin Trough 07/13/19 07/13/19 07/14/19 05:08 11:52 11:50 WBC RBC Hgb Hct MCV MCH MCHC RDW Plt Count Lymph % (Auto) [place] % (Auto) Eos % (Auto) Lymph # [place] # Eos # Seg Neutrophils % Seg Neuts % (Manual) Lymphocytes % (Manual) Monocytes % (Manual) Eosinophils % (Manual) Nucleated RBC % Seg Neutrophils # Seg Neutrophils # Man Lymphocytes # (Manual) Monocytes # (Manual) Eosinophils # (Manual) PT INR APTT Fibrinogen POC ABG pH ABG pH POC ABG pCO2 POC ABG pO2 ABG pO2 ABG HCO3 ABG O2 Saturation ABG Base Excess ABG Hemoglobin Oxyhemoglobin Sodium Potassium Chloride Carbon Dioxide BUN Creatinine Glucose POC Glucose 107 H 120 H 125 H Uric Acid Calcium Phosphorus Magnesium Iron TIBC AST ALT Total Creatine Kinase CK-MB (CK-2) Troponin T NT-Pro-B Natriuret Pep Total Protein Albumin Triglycerides HDL Cholesterol Folate Urine WBC (Auto) Urine Creatinine Urine Total Protein Vancomycin Trough 07/14/19 07/15/19 07/15/19 15:52 00:21 05:50 WBC RBC Hgb Hct MCV MCH MCHC RDW Plt Count Lymph % (Auto) [place] % (Auto) Eos % (Auto) Lymph # [place] # Eos # Seg Neutrophils % Seg Neuts % (Manual) Lymphocytes % (Manual) Monocytes % (Manual) Eosinophils % (Manual) Nucleated RBC % Seg Neutrophils # Seg Neutrophils # Man Lymphocytes # (Manual) Monocytes # (Manual) Eosinophils # (Manual) PT INR APTT Fibrinogen POC ABG pH ABG pH POC ABG pCO2 POC ABG pO2 ABG pO2 ABG HCO3 ABG O2 Saturation ABG Base Excess ABG Hemoglobin Oxyhemoglobin Sodium Potassium Chloride Carbon Dioxide BUN Creatinine Glucose POC Glucose 118 H 108 H 123 H Uric Acid Calcium Phosphorus Magnesium Iron TIBC AST ALT Total Creatine Kinase CK-MB (CK-2) Troponin T NT-Pro-B Natriuret Pep Total Protein Albumin Triglycerides HDL Cholesterol Folate Urine WBC (Auto) Urine Creatinine Urine Total Protein Vancomycin Trough 07/15/19 07/15/19 07/15/19 11:38 16:33 17:36 WBC RBC Hgb Hct MCV MCH MCHC RDW Plt Count Lymph % (Auto) [place] % (Auto) Eos % (Auto) Lymph # [place] # Eos # Seg Neutrophils % Seg Neuts % (Manual) Lymphocytes % (Manual) Monocytes % (Manual) Eosinophils % (Manual) Nucleated RBC % Seg Neutrophils # Seg Neutrophils # Man Lymphocytes # (Manual) Monocytes # (Manual) Eosinophils # (Manual) PT INR APTT Fibrinogen POC ABG pH ABG pH POC ABG pCO2 POC ABG pO2 ABG pO2 ABG HCO3 ABG O2 Saturation ABG Base Excess ABG Hemoglobin Oxyhemoglobin Sodium Potassium Chloride Carbon Dioxide BUN Creatinine Glucose POC Glucose 114 H 115 H 132 H Uric Acid Calcium Phosphorus Magnesium Iron TIBC AST ALT Total Creatine Kinase CK-MB (CK-2) Troponin T NT-Pro-B Natriuret Pep Total Protein Albumin Triglycerides HDL Cholesterol Folate Urine WBC (Auto) Urine Creatinine Urine Total Protein Vancomycin Trough 07/16/19 07/16/19 07/17/19 12:33 18:57 11:53 WBC RBC Hgb Hct MCV MCH MCHC RDW Plt Count Lymph % (Auto) [place] % (Auto) Eos % (Auto) Lymph # [place] # Eos # Seg Neutrophils % Seg Neuts % (Manual) Lymphocytes % (Manual) Monocytes % (Manual) Eosinophils % (Manual) Nucleated RBC % Seg Neutrophils # Seg Neutrophils # Man Lymphocytes # (Manual) Monocytes # (Manual) Eosinophils # (Manual) PT INR APTT Fibrinogen POC ABG pH ABG pH POC ABG pCO2 POC ABG pO2 ABG pO2 ABG HCO3 ABG O2 Saturation ABG Base Excess ABG Hemoglobin Oxyhemoglobin Sodium Potassium Chloride Carbon Dioxide BUN Creatinine Glucose POC Glucose 113 H 65 L 113 H Uric Acid Calcium Phosphorus Magnesium Iron TIBC AST ALT Total Creatine Kinase CK-MB (CK-2) Troponin T NT-Pro-B Natriuret Pep Total Protein Albumin Triglycerides HDL Cholesterol Folate Urine WBC (Auto) Urine Creatinine Urine Total Protein Vancomycin Trough 07/17/19 07/18/19 17:42 06:24 WBC RBC Hgb Hct MCV MCH MCHC RDW Plt Count Lymph % (Auto) [place] % (Auto) Eos % (Auto) Lymph # [place] # Eos # Seg Neutrophils % Seg Neuts % (Manual) Lymphocytes % (Manual) Monocytes % (Manual) Eosinophils % (Manual) Nucleated RBC % Seg Neutrophils # Seg Neutrophils # Man Lymphocytes # (Manual) Monocytes # (Manual) Eosinophils # (Manual) PT INR APTT Fibrinogen POC ABG pH ABG pH POC ABG pCO2 POC ABG pO2 ABG pO2 ABG HCO3 ABG O2 Saturation ABG Base Excess ABG Hemoglobin Oxyhemoglobin Sodium Potassium Chloride Carbon Dioxide BUN Creatinine Glucose POC Glucose 111 H 107 H Uric Acid Calcium Phosphorus Magnesium Iron TIBC AST ALT Total Creatine Kinase CK-MB (CK-2) Troponin T NT-Pro-B Natriuret Pep Total Protein Albumin Triglycerides HDL Cholesterol Folate Urine WBC (Auto) Urine Creatinine Urine Total Protein Vancomycin Trough
[2019-07-19] MEDS: INSULIN LISPRO 100 UNIT/ML SUB-Q SCH ×4 (05:32→18:00)
[2019-07-19] MEDS: APIXABAN 2.5 MG TAB PO SCH ×2 (09:57→21:38)
[2019-07-19] MEDS: FAMOTIDINE 20 MG TAB PO SCH ×2 (09:57→21:40)
[2019-07-19] MEDS: hydroCHLOROthiazide 25 MG TAB PO SCH (09:57)
[2019-07-19] MEDS: MULTIVITAMINS 5 ML ORAL LIQUID PO SCH (09:58)
[2019-07-19] MEDS: amLODIPine 10 MG TAB PO SCH (09:58)
[2019-07-19] MEDS: FERROUS SULFATE 308 MG (62mg Elemental Iron) / 7 ML ELIXIR PO SCH (10:03)
--- NOTE | 2019-07-19 13:14 | Progress Note ---
Assessment and Plan Assessment and plan: Febrile illness - spiking low grade temp intermittently - Internal jugular tunneled hemodialysis catheter removed - ID following Acute respiratory failure; vent dependent/status post trach and PEG Off ventilatory support, on T-piece, cont trach care, scheduled nebulizers Pulmonary following Obesity hypoventilation syndrome Status post tracheostomy, titrate O2 sats to more than 90% Status post cardiac arrest mild anoxic brain injury EEG was negative for seizures and neurology evaluated Severe protein calorie malnutrition Oral pharyngeal dysphagia continue tube feeds Anemia of chronic disease Closely monitor H&H and transfuse as needed. 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 Now Patient is on Eliquis Acute kidney injury due to ATN Initially requiring dialysis Resolved, nephrology following. Hypernatremia/Hypokalemia/ hypomagnesemia Resolved Morbid obesity will need weight loss program upon discharge DVT prophylaxis scd /Eliquis Physical therapy/occupational therapy when patient is stable 07/16-patient with no fever as of yet since midnight 07/15. Cultures remain negative x72 hours. Patient remains vent dependent. 07/17consider to transfer out of the ICU to the floor. Continue tube feeding with aspiration precautions. Continue frequent suctioning, trach care, secretion control and airway management. Continue mobility protocols for pressu re ulcer prophylaxis. 07/18Continue tube feeding with aspiration precautions. Continue frequent marin ctioning, trach care, secretion control and airway management. Continue mobility protocols for pressure ulcer prophylaxis. 07/19Case management to discuss discharge planning options with the family today. Continue tube feeding with aspiration precautions. Continue frequent suctioning, trach care, secretion control and airway management. Continue mobility protocols for pressure ulcer prophylaxis. History Interval history: No new issues overnight. Hospitalist Physical - Constitutional Vitals: Temp Pulse Resp BP Pulse Ox 98.5 F 99 H 14 138/56 93 07/19/19 12:00 07/19/19 12:00 07/19/19 10:00 07/19/19 12:00 07/19/19 12:00 General appearance: Present: no acute distress, obese, other (tracheostomy /T- piece) - EENT Eyes: Present: PERRL, EOM intact ENT: hearing intact, clear oral mucosa, dentition normal - Neck Neck: Present: supple, normal ROM - Respiratory Respiratory effort: normal Respiratory: bilateral: CTA - Cardiovascular Rhythm: regular Heart Sounds: Present: S1 & S2. Absent: gallop, rub - Extremities Extremities: no ischemia, No edema, Full ROM - Abdominal General gastrointestinal: soft, non-tender, non-distended, normal bowel sounds - Integumentary Integumentary: Present: clear, warm, dry - Neurologic Neurologic: CNII-XII intact, moves all extremities Results - Labs CBC & Chem 7: 07/13/19 03:55 07/13/19 03:55 Labs: Laboratory Last Values WBC 11.4 K/mm3 (4.5-11.0) H 07/13/19 03:55 RBC 3.18 M/mm3 (3.65-5.03) L 07/13/19 03:55 Hgb 8.8 gm/dl (11.8-15.2) L 07/13/19 03:55 Hct 27.4 % (35.5-45.6) L 07/13/19 03:55 MCV 86 fl (84-94) 07/13/19 03:55 MCH 28 pg (28-32) 07/13/19 03:55 MCHC 32 % (32-34) 07/13/19 03:55 RDW 19.1 % (13.2-15.2) H 07/13/19 03:55 Plt Count 440 K/mm3 (140-440) 07/13/19 03:55 Lymph % (Auto) 8.3 % (13.4-35.0) L 07/01/19 07:58 [place] % (Auto) 10.0 % (0.0-7.3) H 07/01/19 07:58 Eos % (Auto) 1.5 % (0.0-4.3) 07/01/19 07:58 Baso % (Auto) 0.8 % (0.0-1.8) 07/01/19 07:58 Lymph # 0.9 K/mm3 (1.2-5.4) L 07/01/19 07:58 [place] # 1.2 K/mm3 (0.0-0.8) H 07/01/19 07:58 Eos # 0.2 K/mm3 (0.0-0.4) 07/01/19 07:58 Baso # 0.1 K/mm3 (0.0-0.1) 07/01/19 07:58 Add Manual Diff Complete 07/08/19 04:00 Total Counted 100 07/08/19 04:00 Seg Neutrophils % 79.4 % (40.0-70.0) H 07/01/19 07:58 Seg Neuts % (Manual) 76.0 % (40.0-70.0) H 07/08/19 04:00 Band Neutrophils % 0 % 07/08/19 04:00 Lymphocytes % (Manual) 16.0 % (13.4-35.0) 07/08/19 04:00 Reactive Lymphs % (Man) 0 % 07/08/19 04:00 Monocytes % (Manual) 6.0 % (0.0-7.3) 07/08/19 04:00 Eosinophils % (Manual) 2.0 % (0.0-4.3) 07/08/19 04:00 Basophils % (Manual) 0 % (0.0-1.8) 07/08/19 04:00 Metamyelocytes % 0 % 07/08/19 04:00 Myelocytes % 0 % 07/08/19 04:00 Promyelocytes % 0 % 07/08/19 04:00 Blast Cells % 0 % 07/08/19 04:00 Nucleated RBC % Not Reportable 07/08/19 04:00 Seg Neutrophils # 9.1 K/mm3 (1.8-7.7) H 07/01/19 07:58 Seg Neutrophils # Man 8.4 K/mm3 (1.8-7.7) H 07/08/19 04:00 Band Neutrophils # 0.0 K/mm3 07/08/19 04:00 Lymphocytes # (Manual) 1.8 K/mm3 (1.2-5.4) 07/08/19 04:00 Abs React Lymphs (Man) 0.0 K/mm3 07/08/19 04:00 Monocytes # (Manual) 0.7 K/mm3 (0.0-0.8) 07/08/19 04:00 Eosinophils # (Manual) 0.2 K/mm3 (0.0-0.4) 07/08/19 04:00 Basophils # (Manual) 0.0 K/mm3 (0.0-0.1) 07/08/19 04:00 Metamyelocytes # 0.0 K/mm3 07/08/19 04:00 Myelocytes # 0.0 K/mm3 07/08/19 04:00 Promyelocytes # 0.0 K/mm3 07/08/19 04:00 Blast Cells # 0.0 K/mm3 07/08/19 04:00 WBC Morphology Not Reportable 07/08/19 04:00 Hypersegmented Neuts Not Reportable 07/08/19 04:00 Hyposegmented Neuts Not Reportable 07/08/19 04:00 Hypogranular Neuts Not Reportable 07/08/19 04:00 Smudge Cells Not Reportable 07/08/19 04:00 Toxic Granulation Not Reportable 07/08/19 04:00 Toxic Vacuolation Not Reportable 07/08/19 04:00 Dohle Bodies Not Reportable 07/08/19 04:00 Pelger-Huet Anomaly Not Reportable 07/08/19 04:00 Renea Rods Not Reportable 07/08/19 04:00 Platelet Estimate Consistent w auto 07/08/19 04:00 Clumped Platelets Not Reportable 07/08/19 04:00 Plt Clumps, EDTA Not Reportable 07/08/19 04:00 Large Platelets Not Reportable 07/08/19 04:00 Giant Platelets Not Reportable 07/08/19 04:00 Platelet Satelliting Not Reportable 07/08/19 04:00 Plt Morphology Comment Not Reportable 07/08/19 04:00 RBC Morphology Not Reportable 07/08/19 04:00 Dimorphic RBCs Not Reportable 07/08/19 04:00 Polychromasia Not Reportable 07/08/19 04:00 Hypochromasia Not Reportable 07/08/19 04:00 Poikilocytosis Not Reportable 07/08/19 04:00 Anisocytosis 1+ 07/08/19 04:00 Microcytosis Not Reportable 07/08/19 04:00 Macrocytosis Not Reportable 07/08/19 04:00 Spherocytes Not Reportable 07/08/19 04:00 Pappenheimer Bodies Not Reportable 07/08/19 04:00 Sickle Cells Not Reportable 07/08/19 04:00 Target Cells Not Reportable 07/08/19 04:00 Tear Drop Cells Not Reportable 07/08/19 04:00 Ovalocytes Not Reportable 07/08/19 04:00 Stomatocytes 3+ 06/23/19 05:24 Helmet Cells Not Reportable 07/08/19 04:00 [place]ia Bodies Not Reportable 07/08/19 04:00 [place] Rings Not Reportable 07/08/19 04:00 [place] Cells Not Reportable 07/08/19 04:00 Bite Cells Not Reportable 07/08/19 04:00 Crenated Cell Not Reportable 07/08/19 04:00 Elliptocytes Not Reportable 07/08/19 04:00 Acanthocytes (Spur) Not Reportable 07/08/19 04:00 Rouleaux Not Reportable 07/08/19 04:00 Hemoglobin C Crystals Not Reportable 07/08/19 04:00 Schistocytes Not Reportable 07/08/19 04:00 Malaria parasites Not Reportable 07/08/19 04:00 Syed Bodies Not Reportable 07/08/19 04:00 Hem Pathologist Commnt No 07/08/19 04:00 PT 15.4 Sec. (12.2-14.9) H 05/01/19 Unknown INR 1.23 (0.87-1.13) H 05/01/19 Unknown APTT 22.7 Sec. (24.2-36.6) L 05/01/19 Unknown Fibrinogen 194 mg/dl (211-480) L 06/17/19 12:45 Heparin Anti-Xa, Unfract Negative (Negative) 06/17/19 12:45 POC ABG pH 7.462 (7.35-7.45) H 06/05/19 03:52 ABG pH 7.469 pH Units (7.350-7.450) H 06/23/19 02:00 POC ABG pCO2 39.8 (35-45) 06/05/19 03:52 ABG pCO2 39.4 mm Hg 06/23/19 02:00 POC ABG pO2 86 (80-105) 06/05/19 03:52 ABG pO2 58.7 mm Hg (80.0-90.0) L 06/23/19 02:00 POC ABG HCO3 28.4 (22-26 mml/L) 06/05/19 03:52 ABG HCO3 28.0 mmol/L (20.0-26.0) H 06/23/19 02:00 POC ABG Total CO2 30 (23-27mmol/L) 06/05/19 03:52 POC ABG O2 Sat 97 06/05/19 03:52 ABG O2 Saturation 94.6 % (95.0-99.0) L 06/23/19 02:00 ABG O2 Content 9.2 (0.0-44) 06/23/19 02:00 POC ABG Base Excess 5 ((-2) - (+3)mmol/L) 06/05/19 03:52 ABG Base Excess 4.0 mmol/L (-2.0-3.0) H 06/23/19 02:00 ABG Hemoglobin 7.1 gm/dl (14.0-18.0) L 06/23/19 02:00 ABG Carboxyhemoglobin 2.0 % (0.0-5.0) 06/23/19 02:00 ABG Methemoglobin 0.5 % (0.0-1.5) 06/23/19 02:00 Oxyhemoglobin 92.2 % (95.0-99.0) L 06/23/19 02:00 FiO2 30 % 06/23/19 02:00 Sodium 138 mmol/L (137-145) 07/13/19 03:55 Potassium 4.0 mmol/L (3.6-5.0) 07/13/19 03:55 Chloride 97.4 mmol/L (98-107) L 07/13/19 03:55 Carbon Dioxide 23 mmol/L (22-30) 07/13/19 03:55 Anion Gap 22 mmol/L 07/13/19 03:55 BUN 9 mg/dL (9-20) 07/13/19 03:55 Creatinine 0.5 mg/dL (0.8-1.5) L 07/13/19 03:55 Estimated GFR > 60 ml/min 07/13/19 03:55 BUN/Creatinine Ratio 18 % 07/13/19 03:55 Glucose 121 mg/dL (75-100) H 07/13/19 03:55 POC Glucose 110 (70-105) H 07/19/19 12:24 Osmolality 327 Mosm/kg 05/07/19 13:45 Uric Acid 18.0 mg/dL (3.5-7.6) H 05/07/19 13:45 Calcium 9.6 mg/dL (8.4-10.2) 07/13/19 03:55 Phosphorus 3.70 mg/dL (2.5-4.5) 06/10/19 05:45 Magnesium 1.60 mg/dL (1.7-2.3) L 06/26/19 04:43 Iron 45 ug/dL (49-181) L 06/20/19 09:12 TIBC 110 mcg/dL (250-450) L 06/20/19 09:12 Ferritin 315.2 ng/mL (13.0-400.0) 06/20/19 09:12 Total Bilirubin 0.50 mg/dL (0.1-1.2) 06/08/19 04:20 AST 23 units/L (5-40) 06/08/19 04:20 ALT 66 units/L (7-56) H 06/08/19 04:20 Alkaline Phosphatase 59 units/L (35-129) 06/08/19 04:20 Total Creatine Kinase 131 units/L (55-170) 05/02/19 04:41 CK-MB (CK-2) 5.2 ng/mL (0.0-4.0) H 05/02/19 04:41 CK-MB (CK-2) Rel Index 3.9 (0-4) 05/02/19 04:41 Troponin T 0.067 ng/mL (0.00-0.029) H D 05/02/19 04:41 NT-Pro-B Natriuret Pep 6831 pg/mL (0-450) H 05/01/19 Unknown Total Protein 5.5 g/dL (6.3-8.2) L 06/08/19 04:20 Albumin 2.9 g/dL (3.9-5) L 06/08/19 04:20 Albumin/Globulin Ratio 1.1 % 06/08/19 04:20 Triglycerides 210 mg/dL (2-149) H 06/19/19 04:30 Cholesterol 173 mg/dL (50-199) 05/02/19 00:06 LDL Cholesterol Direct 126 mg/dL (50-130) 05/02/19 00:06 HDL Cholesterol 18 mg/dL (40-59) L 05/02/19 00:06 Cholesterol/HDL Ratio 9.61 % 05/02/19 00:06 Serotonin Release Assay See scanned results 06/17/19 12:45 Vitamin B12 353.0 pg/mL (211-911) 06/20/19 09:12 Folate 7.01 ng/mL (7.3-26.0) L 06/20/19 09:12 Procalcitonin 0.05 ng/mL (<0.15) 06/17/19 12:45 Urine Color Yellow (Yellow) 06/17/19 12:45 Urine Turbidity Slightly-cloudy (Clear) 06/17/19 12:45 Urine pH 5.0 (5.0-7.0) 06/17/19 12:45 Ur Specific [place] 1.013 (1.003-1.030) 06/17/19 12:45 Urine Protein <15 mg/dl mg/dL (Negative) 06/17/19 12:45 Urine Glucose (UA) Neg mg/dL (Negative) 06/17/19 12:45 Urine Ketones Neg mg/dL (Negative) 06/17/19 12:45 Urine Blood Sm (Negative) 06/17/19 12:45 Urine Nitrite Neg (Negative) 06/17/19 12:45 Urine Bilirubin Neg (Negative) 06/17/19 12:45 Urine Urobilinogen < 2.0 mg/dL (<2.0) 06/17/19 12:45 Ur Leukocyte Esterase Neg (Negative) 06/17/19 12:45 Urine WBC (Auto) 2.0 /HPF (0.0-6.0) 06/17/19 12:45 Urine RBC (Auto) 2.0 /HPF (0.0-6.0) 06/17/19 12:45 U Epithel Cells (Auto) < 1.0 /HPF (0-13.0) 06/17/19 12:45 Urine Bacteria (Auto) 1+ /HPF (Negative) 05/20/19 12:00 Uric Acid Crystals 3+ 05/03/19 10:55 Urine Mucus Few /HPF 06/17/19 12:45 Urine Yeast (Budding) 3+ /HPF 05/20/19 12:00 Urine Creatinine 292.8 mg/dL (0.1-20.0) H 05/07/19 22:40 Urine Sodium 11 mmol/L 05/07/19 22:40 Urine Total Protein 269 mg/dL (5-11.8) H 05/07/19 22:40 Vancomycin Trough 20.5 ug/mL (5.0-20.0) H 05/15/19 09:00 Random Vancomycin 11.5 ug/mL (0-40.0) 05/27/19 06:00 AMNA Screen Negative (Negative) 05/07/19 13:45 Heparin-induced Plt Ab Negative (Negative) 06/17/19 12:45 UF Heparin High Dose 13 % Release 06/17/19 12:45 YUNG UFH Low Dose 0.1 8 % Release 06/17/19 12:45 YUNG UFH Low Dose 0.5 7 % Release 06/17/19 12:45 Hepatitis A IgM Ab Non-reactive (NonReactive) 05/07/19 13:45 Hep Bs Antigen Non-reactive (Negative) 05/07/19 13:45 Hep B Core IgM Ab Non-reactive (NonReactive) 05/07/19 13:45 Hepatitis C Antibody Non-reactive (NonReactive) 05/07/19 13:45 Influenza A (Rapid) Negative (Negative) 06/17/19 11:35 Influenza B (Rapid) Negative (Negative) 06/17/19 11:35 Active Medications - Current Medications Current Medications: Generic Name Dose Route Start Last Admin Trade Name Freq PRN Reason Stop Dose Admin Acetaminophen 650 mg 07/02/19 23:56 07/18/19 05:16 Tylenol PO 650 mg Q4H PRN Administration Pain, Mild (1-3) Amlodipine Besylate 10 mg 06/25/19 11:00 07/19/19 09:58 Amlodipine PO 10 mg DAILY VICKEY Administration Lipase/Protease/Amylase 1 each 07/15/19 12:[address] 10,500 Unit FEEDTUBE PRN PRN For Clogged Feeding Tube Apixaban 2.5 mg 06/23/19 22:00 07/19/19 09:57 Eliquis PO 2.5 mg Q12HR VICKEY Administration Protocol Dextrose 50 gm 05/01/19 20:24 D50w (25gm) Vial IV Q30MIN PRN Hypoglycemia Protocol Famotidine 20 mg 06/17/19 10:00 07/19/19 09:57 Pepcid PO 20 mg BID VICKEY Administration Ferrous Sulfate 308 mg 06/18/19 12:00 07/19/19 10:03 Ferrous Sulfate PO 308 mg QDAY VICKEY Administration Hydrochlorothiazide 25 mg 06/26/19 11:00 07/19/19 09:57 Hctz PO 25 mg QDAY VICKEY Administration Insulin Human Lispro 0 unit 06/01/19 14:00 07/19/19 08:42 Humalog SUB-Q Not Given Q6HR [facility] Protocol Labetalol HCl 200 mg 06/28/19 10:00 07/19/19 05:33 Labetalol PO 200 mg Q8HR VICKEY Administration Multi-Ingred Cream/Lotion/Oil/Oint 1 applic 06/16/19 18:00 Artificial Tears Ophth Oint OU Q4HR PRN Dry Eye(s) Multivitamins 5 ml 06/29/19 12:00 07/19/19 09:58 Centrum Liq PO 5 ml QDAY VICKEY Administration Scopolamine 1 each 06/27/19 09:00 07/18/19 09:41 Transderm-Scop TD 1 each Q3D VICKEY Administration Simple Syrup 15 ml 07/15/19 12:26 Simple Syrup FEEDTUBE PRN PRN Hypoglycemia Simple Syrup 30 ml 07/15/19 12:26 Simple Syrup FEEDTUBE PRN PRN Hypoglycemia Sodium Bicarbonate 325 mg 07/15/19 12:26 Sodium Bicarbonate FEEDTUBE PRN PRN For Clogged Feeding Tube Nutrition/Malnutrition Assess - Dietary Evaluation Nutrition/Malnutrition Findings: Nutrition Notes Start: 05/04/19 12:54 Freq: Status: Active Protocol: Document 07/15/19 12:23 CT (Rec: 07/15/19 12:26 CT [email or web address]) Co-Sign 07/15/19 12:23 LM Nutrition Notes Initial or Follow up Reassessment Current Diagnosis Acute Kidney Injury,Sepsis, Respiratory Failure Other Pertinent Diagnosis HD Current Diet Osmolite 1.5 at 60 ml/hr Labs/Tests Na 138 POC Glu 123 Pertinent Medications KCl Height 6 ft 4 in Weight 189.8 kg [place] Body Weight (kg) 91.81 BMI 50.9 Weight Status Morbidly Obese Subjective/Other Information Osmolite running at 60 ml/hr at time of visit. Pt tolerating TF. Percent of energy/protein needs met: 100%/100% Burn Absent Trauma Absent GI Symptoms None Current % PO Negligible Minimum of two criteria No Fluid Accumulation Moderate to Severe (severe) #1 Nutrition Diagnosis Inadequate oral intake Diagnosis Progress(for reassessment Continues documentation) Is patient on ventilator? Yes Is Patient Ambulatory and/or Out of Bed No REE-([place]-St. Jeor-confined to bed) 3534.288 Kcal/Kg value to use for calculation 11 Approximate Energy Requirements Using 8 kcal/Kg Calculation Used for Recommendations Kcal/kg Additional Notes PRO needs: 73-91g (0.8-1 g/kg IBW 91kg CARLA resolved) Fluid needs: 1 ml/kcal Nutrition Intervention Change Diet Order: Continue TF Nutrition Support: Osmolite at 60 ml/hr Flush 200 ml q4h Kcal 2,160 Protein (gm) 90 Fluid (mL) 1,097 Goal #1 TF tolerance Goal #2 Meet at least 80% of PRO/kcal needs via TF Anticipated Discharge Needs: Unable to determine at this time Follow-Up By: 07/21/19 Additional Comments Follow up for TF tolerance
--- NOTE | 2019-07-19 15:03 | Progress Note ---
Assessment and Plan 34 y/o male with acute hypoxic, hypercapnic respiratory failure now with trach and uncontrolled hypertension. 07/19/2019: Stable pulm status. Per CM called mother to discuss goals of care but she has not responded. 07/16/2019: Stable pulm status. Will see PRN over the weekend. 07/15/2019: Patient has been stable pulm murphy thus far. No objection with transfer to [facility], close to nursing station though given history of patient pulling out trach. 07/13/2019: No new recs from today. Please see below. 07/10/2019: Continue PT/OT 07/09/2019: No new recs for today. Contiue PT/OT. Disposition is unknown secondary to lack of funding. 07/08/19: No new recs for today. Contiue PT/OT. Disposition is unknown secondary to lack of funding. 07/07/19. Stopping prednisone as this wasn't stopped over the weekend. Needs suctioning and asked that if transferred please place patient close as possible to nursing station. 07/06/19: Continue IMCU care. Requires frequent suctioning. PT/OT 07/02/19: Patient should not be transferred to the floor. Although his pulm status is stable, he is very high risk for decompensation and if the incident that happened last night, happened on the floor, that may have been his demise. Ok with right arm restraint for now. 07/01/2019: Continue current care. PT/OT. Work on discharge planning. steroids to 5 daily, will likely stop Friday or Friday. Stable but my concern is that if he goes to the floor, he will not get the proper suctioning needed. Will continue IMCU service 06/26/2019: Will discontinue vent from room. patient was placed on vent last night. Not sure why. Will place orders for continued T-piece. Appears he was doing well with no issues. If tolerates being off vent tonight, transition to step down tomorrow. Increase HCTZ to 25 06/25/2019: Continue T-piece today as tolerated. Only rest of vent if needed. If not needed tonight then will discontinue vent from room. Spoke with IR, and they will remove Perm cath today as this could be a cause of fevers. Follow up cultures and ID recs. Will increase Free H2O to [id number]. Change steroids to 10 PO starting tomorrow morning. Added scheduled BP meds. 06/24/2019: Will attempt T-piece later today, if tolerates, then will continue trial indefinitely. PT/OT will need to start seeing him again. Will drop steroids to 10 daily (PO) starting Friday morning. 06/23/2019: PSV all day today and tomorrow. Will start T-piece either tomorrow or Friday. Tolerating Feeds 06/22/2019: Patient scheduled for OR today. Plan as outlined in Dr. Saez's note from yesterday. Discussed with patient again this am. Really appreciate surgery help with this and the promptness of procedure. Will follow up post-op later today. 06/21/2019: Unfortunately re-intubated last week. Will need Trach and Peg, but I doubt peg will happen secondary to his size. Will discuss with surgery and maybe they can just put in a number 6 XLT from the start. I think he will get off the vent relatively quickly and can start to eat. This trach will be indefinite. I have explained this to him. I have not seen his family at the bedside during this admission but Im told they come in the evenings. 06/12/2019: Started HCTZ 50 daily and Labetalol 100 TID. Will increase Labetalol to 200 TID. Already on Clonidine patch. Continue Minoxidil. Will start to wean drip. PT/OT. Feeds through NG now that this is in place. Will need speech re-evaluation. Will order NT suctioning at least [id number] for the next 24 hours. 06/11/2019: Bipap at night and PRN. Na levels are increasing. Agree with D5W. Unable to place DH, several nurses tried. Will ask speech to come by and reassess now that patient is more willing to cooperate. . Continue PT/OT, sat up on side of bed yesterday. Continue IMCU monitoring for now. As stated below, patient was intubated for 37 days. CCT 31 minutes. Subjective Date of service: 07/19/19 Principal diagnosis: anemia - LOw PLT Interval history: No acute events. Objective Vital Signs - 12hr 07/19/19 07/19/19 07/19/19 04:00 05:33 06:00 Temperature 98.9 F Pulse Rate 100 H 109 H 93 H Pulse Rate [ 101 H From Monitor] Respiratory 15 20 Rate Blood Pressure 125/86 125/86 125/86 O2 Sat by Pulse 83 L 93 Oximetry O2 Sat by Pulse Oximetry [ Assessment] 07/19/19 07/19/19 07/19/19 08:00 08:15 09:58 Temperature 99.7 F H Pulse Rate 97 H 98 H Pulse Rate [ From Monitor] Respiratory Rate Blood Pressure 125/86 136/86 O2 Sat by Pulse 98 100 Oximetry O2 Sat by Pulse 100 Oximetry [ Assessment] 07/19/19 07/19/19 10:00 12:00 Temperature 98.5 F Pulse Rate 99 H 99 H Pulse Rate [ From Monitor] Respiratory 14 Rate Blood Pressure 125/86 138/56 O2 Sat by Pulse 100 93 Oximetry O2 Sat by Pulse Oximetry [ Assessment] Constitutional: other (morbidly obese male,on trach tpiece) Eyes: non-icteric ENT: oropharynx moist Neck: supple, other (extremely large in circumference trach in place) Effort: normal Ascultation: Bilateral: diminished breath sounds (secondary to body habitus), rhonchi, other (Upper airway noises due to secretions) Cardiovascular: regular rate and rhythm (no mrg) Gastrointestinal: normoactive bowel sounds, soft, non-tender, other (obese) Integumentary: other (L hand is wrapped) Extremities: no cyanosis, pink and warm, other (1+ generalized edema) Neurologic: normal mental status, non-focal exam Psychiatric: mood appropriate, affect normal CBC and BMP: 07/13/19 03:55 07/13/19 03:55 ABG, PT/INR, D-dimer: ABG POC ABG pH 7.462 (7.35-7.45) H 06/05/19 03:52 ABG pH 7.469 pH Units (7.350-7.450) H 06/23/19 02:00 POC ABG pCO2 39.8 (35-45) 06/05/19 03:52 ABG pCO2 39.4 mm Hg 06/23/19 02:00 POC ABG pO2 86 (80-105) 06/05/19 03:52 ABG pO2 58.7 mm Hg (80.0-90.0) L 06/23/19 02:00 POC ABG HCO3 28.4 (22-26 mml/L) 06/05/19 03:52 POC ABG Total CO2 30 (23-27mmol/L) 06/05/19 03:52 POC ABG O2 Sat 97 06/05/19 03:52 ABG O2 Saturation 94.6 % (95.0-99.0) L 06/23/19 02:00 PT/INR, D-dimer PT 15.4 Sec. (12.2-14.9) H 05/01/19 Unknown INR 1.23 (0.87-1.13) H 05/01/19 Unknown Abnormal lab findings: Abnormal Labs 05/01/19 05/01/19 05/01/19 17:50 19:26 22:36 WBC RBC Hgb Hct MCV MCH MCHC RDW Plt Count Lymph % (Auto) [place] % (Auto) Eos % (Auto) Lymph # [place] # Eos # Seg Neutrophils % Seg Neuts % (Manual) Lymphocytes % (Manual) Monocytes % (Manual) Eosinophils % (Manual) Nucleated RBC % Seg Neutrophils # Seg Neutrophils # Man Lymphocytes # (Manual) Monocytes # (Manual) Eosinophils # (Manual) PT INR APTT Fibrinogen POC ABG pH 7.272 L 7.331 L ABG pH POC ABG pCO2 52.8 H POC ABG pO2 ABG pO2 ABG HCO3 ABG O2 Saturation ABG Base Excess ABG Hemoglobin Oxyhemoglobin Sodium 136 L Potassium 6.5 H* Chloride 97.2 L Carbon Dioxide BUN 60 H Creatinine Glucose 113 H POC Glucose Uric Acid Calcium Phosphorus Magnesium 2.40 H Iron TIBC AST 139 H ALT 154 H Total Creatine Kinase CK-MB (CK-2) Troponin T NT-Pro-B Natriuret Pep Total Protein Albumin 3.8 L Triglycerides HDL Cholesterol Folate Urine WBC (Auto) Urine Creatinine Urine Total Protein Vancomycin Trough 05/01/19 05/01/19 05/01/19 Unknown Unknown Unknown WBC 16.1 H RBC Hgb Hct MCV MCH MCHC RDW 17.2 H Plt Count Lymph % (Auto) [place] % (Auto) 9.6 H Eos % (Auto) Lymph # [place] # 1.5 H Eos # Seg Neutrophils % 73.0 H Seg Neuts % (Manual) Lymphocytes % (Manual) Monocytes % (Manual) Eosinophils % (Manual) Nucleated RBC % Seg Neutrophils # 11.7 H Seg Neutrophils # Man Lymphocytes # (Manual) Monocytes # (Manual) Eosinophils # (Manual) PT 15.4 H INR 1.23 H APTT 22.7 L Fibrinogen POC ABG pH ABG pH POC ABG pCO2 POC ABG pO2 ABG pO2 ABG HCO3 ABG O2 Saturation ABG Base Excess ABG Hemoglobin Oxyhemoglobin Sodium Potassium Chloride Carbon Dioxide BUN Creatinine Glucose POC Glucose Uric Acid Calcium Phosphorus Magnesium Iron TIBC AST ALT Total Creatine Kinase CK-MB (CK-2) Troponin T NT-Pro-B Natriuret Pep 6831 H Total Protein Albumin Triglycerides HDL Cholesterol Folate Urine WBC (Auto) Urine Creatinine Urine Total Protein Vancomycin Trough 05/01/19 05/02/19 05/02/19 Unknown 00:06 00:06 WBC RBC Hgb Hct MCV MCH MCHC RDW Plt Count Lymph % (Auto) [place] % (Auto) Eos % (Auto) Lymph # [place] # Eos # Seg Neutrophils % Seg Neuts % (Manual) Lymphocytes % (Manual) Monocytes % (Manual) Eosinophils % (Manual) Nucleated RBC % Seg Neutrophils # Seg Neutrophils # Man Lymphocytes # (Manual) Monocytes # (Manual) Eosinophils # (Manual) PT INR APTT Fibrinogen POC ABG pH ABG pH POC ABG pCO2 POC ABG pO2 ABG pO2 ABG HCO3 ABG O2 Saturation ABG Base Excess ABG Hemoglobin Oxyhemoglobin Sodium Potassium Chloride Carbon Dioxide BUN Creatinine Glucose POC Glucose Uric Acid Calcium Phosphorus 4.90 H Magnesium Iron TIBC AST ALT Total Creatine Kinase 226 H CK-MB (CK-2) 5.7 H Troponin T 0.044 H NT-Pro-B Natriuret Pep Total Protein Albumin Triglycerides 182 H HDL Cholesterol 18 L Folate Urine WBC (Auto) Urine Creatinine Urine Total Protein Vancomycin Trough 05/02/19 05/02/19 05/02/19 02:08 04:40 04:41 WBC 17.6 H RBC Hgb Hct MCV MCH 27 L MCHC RDW 17.4 H Plt Count Lymph % (Auto) 10.2 L [place] % (Auto) 11.0 H Eos % (Auto) Lymph # [place] # 1.9 H Eos # Seg Neutrophils % 78.0 H Seg Neuts % (Manual) Lymphocytes % (Manual) Monocytes % (Manual) Eosinophils % (Manual) Nucleated RBC % Seg Neutrophils # 13.8 H Seg Neutrophils # Man Lymphocytes # (Manual) Monocytes # (Manual) Eosinophils # (Manual) PT INR APTT Fibrinogen POC ABG pH ABG pH POC ABG pCO2 46.8 H POC ABG pO2 63 L ABG pO2 ABG HCO3 ABG O2 Saturation ABG Base Excess ABG Hemoglobin Oxyhemoglobin Sodium Potassium Chloride 96.3 L Carbon Dioxide BUN 63 H Creatinine 1.7 H Glucose POC Glucose Uric Acid Calcium Phosphorus Magnesium Iron TIBC AST ALT Total Creatine Kinase CK-MB (CK-2) Troponin T NT-Pro-B Natriuret Pep Total Protein Albumin Triglycerides HDL Cholesterol Folate Urine WBC (Auto) Urine Creatinine Urine Total Protein Vancomycin Trough 05/02/19 05/02/19 05/02/19 04:41 04:41 16:05 WBC RBC Hgb Hct MCV MCH MCHC RDW Plt Count Lymph % (Auto) [place] % (Auto) Eos % (Auto) Lymph # [place] # Eos # Seg Neutrophils % Seg Neuts % (Manual) Lymphocytes % (Manual) Monocytes % (Manual) Eosinophils % (Manual) Nucleated RBC % Seg Neutrophils # Seg Neutrophils # Man Lymphocytes # (Manual) Monocytes # (Manual) Eosinophils # (Manual) PT INR APTT Fibrinogen POC ABG pH ABG pH POC ABG pCO2 POC ABG pO2 ABG pO2 66.6 L ABG HCO3 31.9 H ABG O2 Saturation 92.5 L ABG Base Excess 5.8 H ABG Hemoglobin 13.3 L Oxyhemoglobin 90.6 L Sodium Potassium Chloride 97.2 L Carbon Dioxide BUN 61 H Creatinine 1.8 H Glucose POC Glucose Uric Acid Calcium Phosphorus Magnesium Iron TIBC AST ALT Total Creatine Kinase CK-MB (CK-2) 5.2 H Troponin T 0.067 H D NT-Pro-B Natriuret Pep Total Protein Albumin Triglycerides HDL Cholesterol Folate Urine WBC (Auto) Urine Creatinine Urine Total Protein Vancomycin Trough 05/02/19 05/03/19 05/03/19 20:39 04:35 05:05 WBC 11.8 H RBC Hgb Hct MCV MCH 27 L MCHC 31 L RDW 17.2 H Plt Count Lymph % (Auto) [place] % (Auto) Eos % (Auto) Lymph # [place] # Eos # Seg Neutrophils % Seg Neuts % (Manual) Lymphocytes % (Manual) Monocytes % (Manual) Eosinophils % (Manual) Nucleated RBC % Seg Neutrophils # Seg Neutrophils # Man Lymphocytes # (Manual) Monocytes # (Manual) Eosinophils # (Manual) PT INR APTT Fibrinogen POC ABG pH ABG pH POC ABG pCO2 53.6 H 54.0 H POC ABG pO2 55 L 63 L ABG pO2 ABG HCO3 ABG O2 Saturation ABG Base Excess ABG Hemoglobin Oxyhemoglobin Sodium Potassium Chloride Carbon Dioxide BUN Creatinine Glucose POC Glucose Uric Acid Calcium Phosphorus Magnesium Iron TIBC AST ALT Total Creatine Kinase CK-MB (CK-2) Troponin T NT-Pro-B Natriuret Pep Total Protein Albumin Triglycerides HDL Cholesterol Folate Urine WBC (Auto) Urine Creatinine Urine Total Protein Vancomycin Trough 05/03/19 05/03/19 05/03/19 05:05 10:55 16:48 WBC RBC Hgb Hct MCV MCH MCHC RDW Plt Count Lymph % (Auto) [place] % (Auto) Eos % (Auto) Lymph # [place] # Eos # Seg Neutrophils % Seg Neuts % (Manual) Lymphocytes % (Manual) Monocytes % (Manual) Eosinophils % (Manual) Nucleated RBC % Seg Neutrophils # Seg Neutrophils # Man Lymphocytes # (Manual) Monocytes # (Manual) Eosinophils # (Manual) PT INR APTT Fibrinogen POC ABG pH 7.604 H ABG pH POC ABG pCO2 POC ABG pO2 58 L ABG pO2 ABG HCO3 ABG O2 Saturation ABG Base Excess ABG Hemoglobin Oxyhemoglobin Sodium Potassium Chloride Carbon Dioxide BUN 52 H Creatinine 1.9 H Glucose 103 H POC Glucose Uric Acid Calcium Phosphorus Magnesium Iron TIBC AST ALT Total Creatine Kinase CK-MB (CK-2) Troponin T NT-Pro-B Natriuret Pep Total Protein Albumin Triglycerides HDL Cholesterol Folate Urine WBC (Auto) 33.0 H Urine Creatinine Urine Total Protein Vancomycin Trough 05/04/19 05/04/19 05/04/19 04:49 06:50 06:50 WBC 16.0 H RBC Hgb Hct MCV MCH 27 L MCHC 31 L RDW 17.8 H Plt Count Lymph % (Auto) [place] % (Auto) Eos % (Auto) Lymph # [place] # Eos # Seg Neutrophils % Seg Neuts % (Manual) Lymphocytes % (Manual) Monocytes % (Manual) Eosinophils % (Manual) Nucleated RBC % Seg Neutrophils # Seg Neutrophils # Man Lymphocytes # (Manual) Monocytes # (Manual) Eosinophils # (Manual) PT INR APTT Fibrinogen POC ABG pH 7.273 L ABG pH POC ABG pCO2 POC ABG pO2 ABG pO2 ABG HCO3 ABG O2 Saturation ABG Base Excess ABG Hemoglobin Oxyhemoglobin Sodium 148 H Potassium 5.5 H Chloride Carbon Dioxide BUN 53 H Creatinine 3.3 H D Glucose 106 H POC Glucose Uric Acid Calcium 8.3 L Phosphorus Magnesium Iron TIBC AST ALT Total Creatine Kinase CK-MB (CK-2) Troponin T NT-Pro-B Natriuret Pep Total Protein Albumin Triglycerides HDL Cholesterol Folate Urine WBC (Auto) Urine Creatinine Urine Total Protein Vancomycin Trough 05/05/19 05/05/19 05/05/19 00:05 04:30 05:00 WBC RBC Hgb Hct MCV MCH MCHC RDW Plt Count Lymph % (Auto) [place] % (Auto) Eos % (Auto) Lymph # [place] # Eos # Seg Neutrophils % Seg Neuts % (Manual) Lymphocytes % (Manual) Monocytes % (Manual) Eosinophils % (Manual) Nucleated RBC % Seg Neutrophils # Seg Neutrophils # Man Lymphocytes # (Manual) Monocytes # (Manual) Eosinophils # (Manual) PT INR APTT Fibrinogen POC ABG pH 7.225 L ABG pH POC ABG pCO2 > 70 H POC ABG pO2 ABG pO2 ABG HCO3 ABG O2 Saturation ABG Base Excess ABG Hemoglobin Oxyhemoglobin Sodium 151 H Potassium 5.1 H Chloride Carbon Dioxide BUN 64 H Creatinine 3.5 H Glucose 117 H POC Glucose 141 H Uric Acid Calcium 7.5 L Phosphorus Magnesium Iron TIBC AST 93 H ALT 65 H Total Creatine Kinase CK-MB (CK-2) Troponin T NT-Pro-B Natriuret Pep Total Protein Albumin 2.9 L Triglycerides HDL Cholesterol Folate Urine WBC (Auto) Urine Creatinine Urine Total Protein Vancomycin Trough 05/05/19 05/05/19 05/05/19 05:00 12:02 17:46 WBC 12.0 H RBC Hgb 11.3 L Hct MCV MCH 27 L MCHC 30 L RDW 18.4 H Plt Count Lymph % (Auto) 7.9 L [place] % (Auto) 10.2 H Eos % (Auto) Lymph # 1.0 L [place] # 1.2 H Eos # Seg Neutrophils % 80.8 H Seg Neuts % (Manual) Lymphocytes % (Manual) Monocytes % (Manual) Eosinophils % (Manual) Nucleated RBC % Seg Neutrophils # 9.7 H Seg Neutrophils # Man Lymphocytes # (Manual) Monocytes # (Manual) Eosinophils # (Manual) PT INR APTT Fibrinogen POC ABG pH ABG pH POC ABG pCO2 POC ABG pO2 ABG pO2 ABG HCO3 ABG O2 Saturation ABG Base Excess ABG Hemoglobin Oxyhemoglobin Sodium Potassium Chloride Carbon Dioxide BUN Creatinine Glucose POC Glucose 125 H 112 H Uric Acid Calcium Phosphorus Magnesium Iron TIBC AST ALT Total Creatine Kinase CK-MB (CK-2) Troponin T NT-Pro-B Natriuret Pep Total Protein Albumin Triglycerides HDL Cholesterol Folate Urine WBC (Auto) Urine Creatinine Urine Total Protein Vancomycin Trough 05/05/19 05/06/19 05/06/19 23:42 03:58 04:45 WBC 11.4 H RBC Hgb 10.7 L Hct 34.2 L MCV MCH 27 L MCHC 31 L RDW 16.9 H Plt Count Lymph % (Auto) [place] % (Auto) Eos % (Auto) Lymph # [place] # Eos # Seg Neutrophils % Seg Neuts % (Manual) Lymphocytes % (Manual) Monocytes % (Manual) Eosinophils % (Manual) Nucleated RBC % Seg Neutrophils # Seg Neutrophils # Man Lymphocytes # (Manual) Monocytes # (Manual) Eosinophils # (Manual) PT INR APTT Fibrinogen POC ABG pH ABG pH POC ABG pCO2 62.4 H POC ABG pO2 111 H ABG pO2 ABG HCO3 ABG O2 Saturation ABG Base Excess ABG Hemoglobin Oxyhemoglobin Sodium Potassium Chloride Carbon Dioxide BUN Creatinine Glucose POC Glucose 128 H Uric Acid Calcium Phosphorus Magnesium Iron TIBC AST ALT Total Creatine Kinase CK-MB (CK-2) Troponin T NT-Pro-B Natriuret Pep Total Protein Albumin Triglycerides HDL Cholesterol Folate Urine WBC (Auto) Urine Creatinine Urine Total Protein Vancomycin Trough 05/06/19 05/06/19 05/06/19 04:45 05:33 12:30 WBC RBC Hgb Hct MCV MCH MCHC RDW Plt Count Lymph % (Auto) [place] % (Auto) Eos % (Auto) Lymph # [place] # Eos # Seg Neutrophils % Seg Neuts % (Manual) Lymphocytes % (Manual) Monocytes % (Manual) Eosinophils % (Manual) Nucleated RBC % Seg Neutrophils # Seg Neutrophils # Man Lymphocytes # (Manual) Monocytes # (Manual) Eosinophils # (Manual) PT INR APTT Fibrinogen POC ABG pH ABG pH POC ABG pCO2 POC ABG pO2 ABG pO2 ABG HCO3 ABG O2 Saturation ABG Base Excess ABG Hemoglobin Oxyhemoglobin Sodium 149 H Potassium Chloride Carbon Dioxide 31 H BUN 67 H Creatinine 3.2 H Glucose 125 H POC Glucose 117 H 116 H Uric Acid Calcium 7.5 L Phosphorus Magnesium Iron TIBC AST ALT Total Creatine Kinase CK-MB (CK-2) Troponin T NT-Pro-B Natriuret Pep Total Protein Albumin Triglycerides HDL Cholesterol Folate Urine WBC (Auto) Urine Creatinine Urine Total Protein Vancomycin Trough 05/06/19 05/06/19 05/07/19 18:34 23:16 05:22 WBC RBC Hgb Hct MCV MCH MCHC RDW Plt Count Lymph % (Auto) [place] % (Auto) Eos % (Auto) Lymph # [place] # Eos # Seg Neutrophils % Seg Neuts % (Manual) Lymphocytes % (Manual) Monocytes % (Manual) Eosinophils % (Manual) Nucleated RBC % Seg Neutrophils # Seg Neutrophils # Man Lymphocytes # (Manual) Monocytes # (Manual) Eosinophils # (Manual) PT INR APTT Fibrinogen POC ABG pH ABG pH POC ABG pCO2 POC ABG pO2 ABG pO2 ABG HCO3 ABG O2 Saturation ABG Base Excess ABG Hemoglobin Oxyhemoglobin Sodium Potassium Chloride Carbon Dioxide BUN Creatinine Glucose POC Glucose 128 H 143 H 166 H Uric Acid Calcium Phosphorus Magnesium Iron TIBC AST ALT Total Creatine Kinase CK-MB (CK-2) Troponin T NT-Pro-B Natriuret Pep Total Protein Albumin Triglycerides HDL Cholesterol Folate Urine WBC (Auto) Urine Creatinine Urine Total Protein Vancomycin Trough 05/07/19 05/07/19 05/07/19 06:33 07:03 09:35 WBC RBC Hgb Hct MCV MCH MCHC RDW Plt Count Lymph % (Auto) [place] % (Auto) Eos % (Auto) Lymph # [place] # Eos # Seg Neutrophils % Seg Neuts % (Manual) Lymphocytes % (Manual) Monocytes % (Manual) Eosinophils % (Manual) Nucleated RBC % Seg Neutrophils # Seg Neutrophils # Man Lymphocytes # (Manual) Monocytes # (Manual) Eosinophils # (Manual) PT INR APTT Fibrinogen POC ABG pH 7.263 L 7.288 L ABG pH POC ABG pCO2 POC ABG pO2 51 L 56 L ABG pO2 ABG HCO3 ABG O2 Saturation ABG Base Excess ABG Hemoglobin Oxyhemoglobin Sodium Potassium Chloride Carbon Dioxide BUN 76 H Creatinine 3.2 H Glucose 147 H POC Glucose Uric Acid Calcium 7.9 L Phosphorus Magnesium Iron TIBC AST ALT Total Creatine Kinase CK-MB (CK-2) Troponin T NT-Pro-B Natriuret Pep Total Protein Albumin Triglycerides HDL Cholesterol Folate Urine WBC (Auto) Urine Creatinine Urine Total Protein Vancomycin Trough 05/07/19 05/07/19 05/07/19 09:35 12:17 13:45 WBC 13.4 H RBC Hgb 11.6 L Hct MCV MCH 27 L MCHC 31 L RDW 17.5 H Plt Count Lymph % (Auto) [place] % (Auto) Eos % (Auto) Lymph # [place] # Eos # Seg Neutrophils % Seg Neuts % (Manual) Lymphocytes % (Manual) Monocytes % (Manual) Eosinophils % (Manual) Nucleated RBC % Seg Neutrophils # Seg Neutrophils # Man Lymphocytes # (Manual) Monocytes # (Manual) Eosinophils # (Manual) PT INR APTT Fibrinogen POC ABG pH ABG pH POC ABG pCO2 POC ABG pO2 ABG pO2 ABG HCO3 ABG O2 Saturation ABG Base Excess ABG Hemoglobin Oxyhemoglobin Sodium Potassium Chloride Carbon Dioxide BUN Creatinine Glucose POC Glucose 130 H Uric Acid 18.0 H Calcium Phosphorus Magnesium Iron TIBC AST ALT Total Creatine Kinase CK-MB (CK-2) Troponin T NT-Pro-B Natriuret Pep Total Protein Albumin Triglycerides HDL Cholesterol Folate Urine WBC (Auto) Urine Creatinine Urine Total Protein Vancomycin Trough 05/07/19 05/07/19 05/08/19 17:39 22:40 05:06 WBC RBC Hgb Hct MCV MCH MCHC RDW Plt Count Lymph % (Auto) [place] % (Auto) Eos % (Auto) Lymph # [place] # Eos # Seg Neutrophils % Seg Neuts % (Manual) Lymphocytes % (Manual) Monocytes % (Manual) Eosinophils % (Manual) Nucleated RBC % Seg Neutrophils # Seg Neutrophils # Man Lymphocytes # (Manual) Monocytes # (Manual) Eosinophils # (Manual) PT INR APTT Fibrinogen POC ABG pH ABG pH POC ABG pCO2 POC ABG pO2 ABG pO2 ABG HCO3 ABG O2 Saturation ABG Base Excess ABG Hemoglobin Oxyhemoglobin Sodium Potassium Chloride Carbon Dioxide BUN Creatinine Glucose POC Glucose 116 H 148 H Uric Acid Calcium Phosphorus Magnesium Iron TIBC AST ALT Total Creatine Kinase CK-MB (CK-2) Troponin T NT-Pro-B Natriuret Pep Total Protein Albumin Triglycerides HDL Cholesterol Folate Urine WBC (Auto) Urine Creatinine 292.8 H Urine Total Protein 269 H Vancomycin Trough 05/08/19 05/08/19 05/08/19 05:32 11:28 13:48 WBC RBC Hgb Hct MCV MCH MCHC RDW Plt Count Lymph % (Auto) [place] % (Auto) Eos % (Auto) Lymph # [place] # Eos # Seg Neutrophils % Seg Neuts % (Manual) Lymphocytes % (Manual) Monocytes % (Manual) Eosinophils % (Manual) Nucleated RBC % Seg Neutrophils # Seg Neutrophils # Man Lymphocytes # (Manual) Monocytes # (Manual) Eosinophils # (Manual) PT INR APTT Fibrinogen POC ABG pH ABG pH POC ABG pCO2 45.4 H POC ABG pO2 64 L ABG pO2 ABG HCO3 ABG O2 Saturation ABG Base Excess ABG Hemoglobin Oxyhemoglobin Sodium Potassium Chloride Carbon Dioxide BUN 73 H Creatinine 2.7 H Glucose 127 H POC Glucose 107 H Uric Acid Calcium 7.6 L Phosphorus Magnesium Iron TIBC AST ALT Total Creatine Kinase CK-MB (CK-2) Troponin T NT-Pro-B Natriuret Pep Total Protein Albumin Triglycerides HDL Cholesterol Folate Urine WBC (Auto) Urine Creatinine Urine Total Protein Vancomycin Trough 05/08/19 05/09/19 05/09/19 17:48 04:50 04:53 WBC RBC 3.07 L Hgb 8.5 L D Hct 29.3 L D MCV 96 H MCH MCHC 29 L RDW 18.1 H Plt Count Lymph % (Auto) [place] % (Auto) Eos % (Auto) Lymph # [place] # Eos # Seg Neutrophils % Seg Neuts % (Manual) Lymphocytes % (Manual) Monocytes % (Manual) Eosinophils % (Manual) Nucleated RBC % Seg Neutrophils # Seg Neutrophils # Man Lymphocytes # (Manual) Monocytes # (Manual) Eosinophils # (Manual) PT INR APTT Fibrinogen POC ABG pH 7.316 L ABG pH POC ABG pCO2 66.0 H POC ABG pO2 69 L ABG pO2 ABG HCO3 ABG O2 Saturation ABG Base Excess ABG Hemoglobin Oxyhemoglobin Sodium Potassium Chloride Carbon Dioxide BUN Creatinine Glucose POC Glucose 155 H Uric Acid Calcium Phosphorus Magnesium Iron TIBC AST ALT Total Creatine Kinase CK-MB (CK-2) Troponin T NT-Pro-B Natriuret Pep Total Protein Albumin Triglycerides HDL Cholesterol Folate Urine WBC (Auto) Urine Creatinine Urine Total Protein Vancomycin Trough 05/09/19 05/09/19 05/09/19 05:46 07:24 12:10 WBC RBC Hgb Hct MCV MCH MCHC RDW Plt Count Lymph % (Auto) [place] % (Auto) Eos % (Auto) Lymph # [place] # Eos # Seg Neutrophils % Seg Neuts % (Manual) Lymphocytes % (Manual) Monocytes % (Manual) Eosinophils % (Manual) Nucleated RBC % Seg Neutrophils # Seg Neutrophils # Man Lymphocytes # (Manual) Monocytes # (Manual) Eosinophils # (Manual) PT INR APTT Fibrinogen POC ABG pH ABG pH POC ABG pCO2 POC ABG pO2 ABG pO2 ABG HCO3 ABG O2 Saturation ABG Base Excess ABG Hemoglobin Oxyhemoglobin Sodium Potassium Chloride Carbon Dioxide BUN 73 H Creatinine 2.4 H Glucose 153 H POC Glucose 123 H 148 H Uric Acid Calcium 8.2 L Phosphorus Magnesium Iron TIBC AST 45 H ALT Total Creatine Kinase CK-MB (CK-2) Troponin T NT-Pro-B Natriuret Pep Total Protein 6.0 L Albumin 1.9 L Triglycerides HDL Cholesterol Folate Urine WBC (Auto) Urine Creatinine Urine Total Protein Vancomycin Trough 05/09/19 05/09/19 05/10/19 18:23 23:26 04:52 WBC RBC Hgb Hct MCV MCH MCHC RDW Plt Count Lymph % (Auto) [place] % (Auto) Eos % (Auto) Lymph # [place] # Eos # Seg Neutrophils % Seg Neuts % (Manual) Lymphocytes % (Manual) Monocytes % (Manual) Eosinophils % (Manual) Nucleated RBC % Seg Neutrophils # Seg Neutrophils # Man Lymphocytes # (Manual) Monocytes # (Manual) Eosinophils # (Manual) PT INR APTT Fibrinogen POC ABG pH 7.305 L ABG pH POC ABG pCO2 62.6 H POC ABG pO2 ABG pO2 ABG HCO3 ABG O2 Saturation ABG Base Excess ABG Hemoglobin Oxyhemoglobin Sodium Potassium Chloride Carbon Dioxide BUN Creatinine Glucose POC Glucose 147 H 121 H Uric Acid Calcium Phosphorus Magnesium Iron TIBC AST ALT Total Creatine Kinase CK-MB (CK-2) Troponin T NT-Pro-B Natriuret Pep Total Protein Albumin Triglycerides HDL Cholesterol Folate Urine WBC (Auto) Urine Creatinine Urine Total Protein Vancomycin Trough 05/10/19 05/10/19 05/10/19 05:00 05:00 05:50 WBC RBC Hgb 10.3 L Hct 33.7 L MCV MCH 27 L MCHC 31 L RDW 17.0 H Plt Count Lymph % (Auto) [place] % (Auto) Eos % (Auto) Lymph # [place] # Eos # Seg Neutrophils % Seg Neuts % (Manual) Lymphocytes % (Manual) Monocytes % (Manual) Eosinophils % (Manual) Nucleated RBC % Seg Neutrophils # Seg Neutrophils # Man Lymphocytes # (Manual) Monocytes # (Manual) Eosinophils # (Manual) PT INR APTT Fibrinogen POC ABG pH ABG pH POC ABG pCO2 POC ABG pO2 ABG pO2 ABG HCO3 ABG O2 Saturation ABG Base Excess ABG Hemoglobin Oxyhemoglobin Sodium 147 H Potassium Chloride Carbon Dioxide BUN 70 H Creatinine 2.6 H Glucose 155 H POC Glucose 158 H Uric Acid Calcium 8.2 L Phosphorus Magnesium Iron TIBC AST ALT Total Creatine Kinase CK-MB (CK-2) Troponin T NT-Pro-B Natriuret Pep Total Protein 6.1 L Albumin 2.5 L Triglycerides HDL Cholesterol Folate Urine WBC (Auto) Urine Creatinine Urine Total Protein Vancomycin Trough 05/10/19 05/11/19 05/11/19 13:14 07:26 11:40 WBC RBC Hgb Hct MCV MCH MCHC RDW Plt Count Lymph % (Auto) [place] % (Auto) Eos % (Auto) Lymph # [place] # Eos # Seg Neutrophils % Seg Neuts % (Manual) Lymphocytes % (Manual) Monocytes % (Manual) Eosinophils % (Manual) Nucleated RBC % Seg Neutrophils # Seg Neutrophils # Man Lymphocytes # (Manual) Monocytes # (Manual) Eosinophils # (Manual) PT INR APTT Fibrinogen POC ABG pH ABG pH POC ABG pCO2 48.0 H POC ABG pO2 58 L ABG pO2 ABG HCO3 ABG O2 Saturation ABG Base Excess ABG Hemoglobin Oxyhemoglobin Sodium 147 H Potassium Chloride 107.2 H Carbon Dioxide BUN 67 H Creatinine 2.6 H Glucose 121 H POC Glucose 159 H Uric Acid Calcium Phosphorus Magnesium Iron TIBC AST ALT Total Creatine Kinase CK-MB (CK-2) Troponin T NT-Pro-B Natriuret Pep Total Protein Albumin Triglycerides HDL Cholesterol Folate Urine WBC (Auto) Urine Creatinine Urine Total Protein Vancomycin Trough 05/11/19 05/11/19 05/12/19 18:13 23:46 04:40 WBC RBC Hgb Hct MCV MCH MCHC RDW Plt Count Lymph % (Auto) [place] % (Auto) Eos % (Auto) Lymph # [place] # Eos # Seg Neutrophils % Seg Neuts % (Manual) Lymphocytes % (Manual) Monocytes % (Manual) Eosinophils % (Manual) Nucleated RBC % Seg Neutrophils # Seg Neutrophils # Man Lymphocytes # (Manual) Monocytes # (Manual) Eosinophils # (Manual) PT INR APTT Fibrinogen POC ABG pH ABG pH 7.264 L POC ABG pCO2 POC ABG pO2 ABG pO2 66.8 L ABG HCO3 31.0 H ABG O2 Saturation 92.0 L ABG Base Excess ABG Hemoglobin 10.3 L Oxyhemoglobin 90.1 L Sodium Potassium Chloride Carbon Dioxide BUN Creatinine Glucose POC Glucose 120 H 121 H Uric Acid Calcium Phosphorus Magnesium Iron TIBC AST ALT Total Creatine Kinase CK-MB (CK-2) Troponin T NT-Pro-B Natriuret Pep Total Protein Albumin Triglycerides HDL Cholesterol Folate Urine WBC (Auto) Urine Creatinine Urine Total Protein Vancomycin Trough 05/12/19 05/12/19 05/12/19 04:45 04:45 11:14 WBC RBC Hgb 10.2 L Hct 32.4 L MCV MCH MCHC 31 L RDW 17.2 H Plt Count Lymph % (Auto) [place] % (Auto) Eos % (Auto) Lymph # [place] # Eos # Seg Neutrophils % Seg Neuts % (Manual) Lymphocytes % (Manual) Monocytes % (Manual) Eosinophils % (Manual) Nucleated RBC % Seg Neutrophils # Seg Neutrophils # Man Lymphocytes # (Manual) Monocytes # (Manual) Eosinophils # (Manual) PT INR APTT Fibrinogen POC ABG pH 7.284 L ABG pH POC ABG pCO2 67.8 H POC ABG pO2 ABG pO2 ABG HCO3 ABG O2 Saturation ABG Base Excess ABG Hemoglobin Oxyhemoglobin Sodium Potassium Chloride Carbon Dioxide BUN 63 H Creatinine 2.4 H Glucose 110 H POC Glucose Uric Acid Calcium Phosphorus Magnesium Iron TIBC AST ALT Total Creatine Kinase CK-MB (CK-2) Troponin T NT-Pro-B Natriuret Pep Total Protein Albumin Triglycerides HDL Cholesterol Folate Urine WBC (Auto) Urine Creatinine Urine Total Protein Vancomycin Trough 05/12/19 05/12/19 05/13/19 11:44 23:11 04:30 WBC RBC Hgb Hct MCV MCH MCHC RDW Plt Count Lymph % (Auto) [place] % (Auto) Eos % (Auto) Lymph # [place] # Eos # Seg Neutrophils % Seg Neuts % (Manual) Lymphocytes % (Manual) Monocytes % (Manual) Eosinophils % (Manual) Nucleated RBC % Seg Neutrophils # Seg Neutrophils # Man Lymphocytes # (Manual) Monocytes # (Manual) Eosinophils # (Manual) PT INR APTT Fibrinogen POC ABG pH ABG pH 7.288 L POC ABG pCO2 POC ABG pO2 ABG pO2 109.7 H ABG HCO3 30.9 H ABG O2 Saturation ABG Base Excess 3.2 H ABG Hemoglobin 9.6 L Oxyhemoglobin Sodium Potassium Chloride Carbon Dioxide BUN Creatinine Glucose POC Glucose 126 H 147 H Uric Acid Calcium Phosphorus Magnesium Iron TIBC AST ALT Total Creatine Kinase CK-MB (CK-2) Troponin T NT-Pro-B Natriuret Pep Total Protein Albumin Triglycerides HDL Cholesterol Folate Urine WBC (Auto) Urine Creatinine Urine Total Protein Vancomycin Trough 05/13/19 05/13/19 05/14/19 06:27 11:58 04:00 WBC RBC 3.16 L Hgb 9.3 L Hct 27.9 L MCV MCH MCHC RDW 17.1 H Plt Count Lymph % (Auto) [place] % (Auto) Eos % (Auto) Lymph # [place] # Eos # Seg Neutrophils % Seg Neuts % (Manual) Lymphocytes % (Manual) Monocytes % (Manual) Eosinophils % (Manual) Nucleated RBC % Seg Neutrophils # Seg Neutrophils # Man Lymphocytes # (Manual) Monocytes # (Manual) Eosinophils # (Manual) PT INR APTT Fibrinogen POC ABG pH ABG pH POC ABG pCO2 POC ABG pO2 ABG pO2 ABG HCO3 ABG O2 Saturation ABG Base Excess ABG Hemoglobin Oxyhemoglobin Sodium Potassium Chloride Carbon Dioxide BUN Creatinine Glucose POC Glucose 113 H 130 H Uric Acid Calcium Phosphorus Magnesium Iron TIBC AST ALT Total Creatine Kinase CK-MB (CK-2) Troponin T NT-Pro-B Natriuret Pep Total Protein Albumin Triglycerides HDL Cholesterol Folate Urine WBC (Auto) Urine Creatinine Urine Total Protein Vancomycin Trough 05/14/19 05/14/19 05/14/19 04:00 04:34 05:32 WBC RBC Hgb Hct MCV MCH MCHC RDW Plt Count Lymph % (Auto) [place] % (Auto) Eos % (Auto) Lymph # [place] # Eos # Seg Neutrophils % Seg Neuts % (Manual) Lymphocytes % (Manual) Monocytes % (Manual) Eosinophils % (Manual) Nucleated RBC % Seg Neutrophils # Seg Neutrophils # Man Lymphocytes # (Manual) Monocytes # (Manual) Eosinophils # (Manual) PT INR APTT Fibrinogen POC ABG pH 7.328 L ABG pH POC ABG pCO2 61.7 H POC ABG pO2 ABG pO2 ABG HCO3 ABG O2 Saturation ABG Base Excess ABG Hemoglobin Oxyhemoglobin Sodium 135 L D Potassium Chloride Carbon Dioxide BUN 57 H Creatinine 2.2 H Glucose 115 H POC Glucose 115 H Uric Acid Calcium 8.1 L Phosphorus Magnesium Iron TIBC AST ALT Total Creatine Kinase CK-MB (CK-2) Troponin T NT-Pro-B Natriuret Pep Total Protein Albumin Triglycerides HDL Cholesterol Folate Urine WBC (Auto) Urine Creatinine Urine Total Protein Vancomycin Trough 05/14/19 05/15/19 05/15/19 12:11 05:10 05:24 WBC RBC Hgb Hct MCV MCH MCHC RDW Plt Count Lymph % (Auto) [place] % (Auto) Eos % (Auto) Lymph # [place] # Eos # Seg Neutrophils % Seg Neuts % (Manual) Lymphocytes % (Manual) Monocytes % (Manual) Eosinophils % (Manual) Nucleated RBC % Seg Neutrophils # Seg Neutrophils # Man Lymphocytes # (Manual) Monocytes # (Manual) Eosinophils # (Manual) PT INR APTT Fibrinogen POC ABG pH ABG pH 7.342 L POC ABG pCO2 POC ABG pO2 ABG pO2 79.1 L ABG HCO3 28.2 H ABG O2 Saturation ABG Base Excess ABG Hemoglobin 7.0 L Oxyhemoglobin 94.4 L Sodium Potassium Chloride Carbon Dioxide BUN Creatinine Glucose POC Glucose 110 H 116 H Uric Acid Calcium Phosphorus Magnesium Iron TIBC AST ALT Total Creatine Kinase CK-MB (CK-2) Troponin T NT-Pro-B Natriuret Pep Total Protein Albumin Triglycerides HDL Cholesterol Folate Urine WBC (Auto) Urine Creatinine Urine Total Protein Vancomycin Trough 05/15/19 05/15/19 05/16/19 09:00 18:12 04:50 WBC RBC Hgb Hct MCV MCH MCHC RDW Plt Count Lymph % (Auto) [place] % (Auto) Eos % (Auto) Lymph # [place] # Eos # Seg Neutrophils % Seg Neuts % (Manual) Lymphocytes % (Manual) Monocytes % (Manual) Eosinophils % (Manual) Nucleated RBC % Seg Neutrophils # Seg Neutrophils # Man Lymphocytes # (Manual) Monocytes # (Manual) Eosinophils # (Manual) PT INR APTT Fibrinogen POC ABG pH ABG pH 7.250 L POC ABG pCO2 POC ABG pO2 ABG pO2 76.4 L ABG HCO3 ABG O2 Saturation 94.6 L ABG Base Excess -3.1 L ABG Hemoglobin 9.7 L Oxyhemoglobin 92.4 L Sodium Potassium Chloride Carbon Dioxide BUN Creatinine Glucose POC Glucose 110 H Uric Acid Calcium Phosphorus Magnesium Iron TIBC AST ALT Total Creatine Kinase CK-MB (CK-2) Troponin T NT-Pro-B Natriuret Pep Total Protein Albumin Triglycerides HDL Cholesterol Folate Urine WBC (Auto) Urine Creatinine Urine Total Protein Vancomycin Trough 20.5 H 05/16/19 05/16/19 05/17/19 05:50 05:50 04:20 WBC RBC 3.36 L 3.44 L Hgb 9.4 L 9.3 L Hct 29.1 L 29.7 L MCV MCH 27 L MCHC 31 L RDW 17.6 H 17.6 H Plt Count Lymph % (Auto) [place] % (Auto) Eos % (Auto) Lymph # [place] # Eos # Seg Neutrophils % Seg Neuts % (Manual) 77.0 H Lymphocytes % (Manual) 5.0 L Monocytes % (Manual) Eosinophils % (Manual) 10.0 H Nucleated RBC % Seg Neutrophils # Seg Neutrophils # Man Lymphocytes # (Manual) 0.5 L Monocytes # (Manual) Eosinophils # (Manual) 0.9 H PT INR APTT Fibrinogen POC ABG pH ABG pH POC ABG pCO2 POC ABG pO2 ABG pO2 ABG HCO3 ABG O2 Saturation ABG Base Excess ABG Hemoglobin Oxyhemoglobin Sodium Potassium Chloride Carbon Dioxide BUN 83 H Creatinine 4.4 H D Glucose 118 H POC Glucose Uric Acid Calcium Phosphorus Magnesium Iron TIBC AST ALT Total Creatine Kinase CK-MB (CK-2) Troponin T NT-Pro-B Natriuret Pep Total Protein Albumin Triglycerides HDL Cholesterol Folate Urine WBC (Auto) Urine Creatinine Urine Total Protein Vancomycin Trough 05/17/19 05/17/19 05/18/19 04:30 Unknown 01:50 WBC RBC 3.49 L Hgb 9.4 L Hct 30.0 L MCV MCH 27 L MCHC 31 L RDW 17.8 H Plt Count Lymph % (Auto) 7.9 L [place] % (Auto) 15.4 H Eos % (Auto) 6.3 H Lymph # 0.7 L [place] # 1.4 H Eos # 0.6 H Seg Neutrophils % 70.2 H Seg Neuts % (Manual) Lymphocytes % (Manual) Monocytes % (Manual) Eosinophils % (Manual) Nucleated RBC % Seg Neutrophils # Seg Neutrophils # Man Lymphocytes # (Manual) Monocytes # (Manual) Eosinophils # (Manual) PT INR APTT Fibrinogen POC ABG pH ABG pH 7.272 L POC ABG pCO2 POC ABG pO2 ABG pO2 75.7 L ABG HCO3 ABG O2 Saturation 93.8 L ABG Base Excess -3.0 L ABG Hemoglobin 7.8 L Oxyhemoglobin 91.6 L Sodium Potassium 5.2 H Chloride Carbon Dioxide BUN 96 H Creatinine 5.7 H Glucose 112 H POC Glucose Uric Acid Calcium Phosphorus Magnesium Iron TIBC AST ALT Total Creatine Kinase CK-MB (CK-2) Troponin T NT-Pro-B Natriuret Pep Total Protein Albumin Triglycerides 173 H HDL Cholesterol Folate Urine WBC (Auto) Urine Creatinine Urine Total Protein Vancomycin Trough 05/18/19 05/18/19 05/18/19 01:50 04:41 05:24 WBC RBC Hgb Hct MCV MCH MCHC RDW Plt Count Lymph % (Auto) [place] % (Auto) Eos % (Auto) Lymph # [place] # Eos # Seg Neutrophils % Seg Neuts % (Manual) Lymphocytes % (Manual) Monocytes % (Manual) Eosinophils % (Manual) Nucleated RBC % Seg Neutrophils # Seg Neutrophils # Man Lymphocytes # (Manual) Monocytes # (Manual) Eosinophils # (Manual) PT INR APTT Fibrinogen POC ABG pH 7.260 L ABG pH POC ABG pCO2 54.9 H POC ABG pO2 ABG pO2 ABG HCO3 ABG O2 Saturation ABG Base Excess ABG Hemoglobin Oxyhemoglobin Sodium Potassium 5.6 H Chloride Carbon Dioxide BUN 104 H Creatinine 6.6 H Glucose 107 H POC Glucose 106 H Uric Acid Calcium Phosphorus Magnesium Iron TIBC AST ALT Total Creatine Kinase CK-MB (CK-2) Troponin T NT-Pro-B Natriuret Pep Total Protein Albumin Triglycerides HDL Cholesterol Folate Urine WBC (Auto) Urine Creatinine Urine Total Protein Vancomycin Trough 05/18/19 05/18/19 05/19/19 11:34 23:26 04:06 WBC RBC 3.22 L Hgb 8.8 L Hct 27.3 L MCV MCH 27 L MCHC RDW 17.5 H Plt Count Lymph % (Auto) [place] % (Auto) Eos % (Auto) Lymph # [place] # Eos # Seg Neutrophils % Seg Neuts % (Manual) 74.0 H Lymphocytes % (Manual) 4.0 L Monocytes % (Manual) 11.0 H Eosinophils % (Manual) 7.0 H Nucleated RBC % 1.0 H Seg Neutrophils # Seg Neutrophils # Man Lymphocytes # (Manual) 0.3 L Monocytes # (Manual) 0.9 H Eosinophils # (Manual) 0.6 H PT INR APTT Fibrinogen POC ABG pH ABG pH POC ABG pCO2 POC ABG pO2 ABG pO2 ABG HCO3 ABG O2 Saturation ABG Base Excess ABG Hemoglobin Oxyhemoglobin Sodium Potassium Chloride Carbon Dioxide BUN Creatinine Glucose POC Glucose 152 H 112 H Uric Acid Calcium Phosphorus Magnesium Iron TIBC AST ALT Total Creatine Kinase CK-MB (CK-2) Troponin T NT-Pro-B Natriuret Pep Total Protein Albumin Triglycerides HDL Cholesterol Folate Urine WBC (Auto) Urine Creatinine Urine Total Protein Vancomycin Trough 05/19/19 05/19/19 05/20/19 04:06 06:00 04:00 WBC RBC 3.40 L Hgb 9.2 L Hct 28.6 L MCV MCH 27 L MCHC RDW 17.6 H Plt Count Lymph % (Auto) [place] % (Auto) Eos % (Auto) Lymph # [place] # Eos # Seg Neutrophils % Seg Neuts % (Manual) Lymphocytes % (Manual) 11.0 L Monocytes % (Manual) Eosinophils % (Manual) 14.0 H Nucleated RBC % Seg Neutrophils # Seg Neutrophils # Man Lymphocytes # (Manual) 1.1 L Monocytes # (Manual) Eosinophils # (Manual) 1.4 H PT INR APTT Fibrinogen POC ABG pH ABG pH 7.315 L POC ABG pCO2 POC ABG pO2 ABG pO2 ABG HCO3 ABG O2 Saturation ABG Base Excess ABG Hemoglobin 6.7 L Oxyhemoglobin 94.1 L Sodium Potassium 5.2 H Chloride Carbon Dioxide 21 L BUN 110 H Creatinine 7.2 H Glucose POC Glucose Uric Acid Calcium 8.3 L Phosphorus Magnesium Iron TIBC AST ALT Total Creatine Kinase CK-MB (CK-2) Troponin T NT-Pro-B Natriuret Pep Total Protein Albumin Triglycerides HDL Cholesterol Folate Urine WBC (Auto) Urine Creatinine Urine Total Protein Vancomycin Trough 05/20/19 05/20/19 05/20/19 04:00 05:48 12:00 WBC RBC Hgb Hct MCV MCH MCHC RDW Plt Count Lymph % (Auto) [place] % (Auto) Eos % (Auto) Lymph # [place] # Eos # Seg Neutrophils % Seg Neuts % (Manual) Lymphocytes % (Manual) Monocytes % (Manual) Eosinophils % (Manual) Nucleated RBC % Seg Neutrophils # Seg Neutrophils # Man Lymphocytes # (Manual) Monocytes # (Manual) Eosinophils # (Manual) PT INR APTT Fibrinogen POC ABG pH ABG pH 7.281 L POC ABG pCO2 POC ABG pO2 ABG pO2 78.7 L ABG HCO3 ABG O2 Saturation 94.5 L ABG Base Excess -3.0 L ABG Hemoglobin 9.9 L Oxyhemoglobin 92.5 L Sodium 136 L Potassium 5.7 H Chloride 96.3 L Carbon Dioxide BUN 125 H Creatinine 8.3 H Glucose 106 H POC Glucose Uric Acid Calcium Phosphorus Magnesium Iron TIBC AST ALT Total Creatine Kinase CK-MB (CK-2) Troponin T NT-Pro-B Natriuret Pep Total Protein Albumin Triglycerides HDL Cholesterol Folate Urine WBC (Auto) 26.0 H Urine Creatinine Urine Total Protein Vancomycin Trough 05/21/19 05/21/19 05/21/19 04:33 05:20 Unknown WBC RBC 3.38 L Hgb 9.1 L Hct 28.5 L MCV MCH 27 L MCHC RDW 17.4 H Plt Count Lymph % (Auto) [place] % (Auto) Eos % (Auto) Lymph # [place] # Eos # Seg Neutrophils % Seg Neuts % (Manual) 71.0 H Lymphocytes % (Manual) 1.0 L Monocytes % (Manual) 11.0 H Eosinophils % (Manual) 6.0 H Nucleated RBC % Seg Neutrophils # Seg Neutrophils # Man Lymphocytes # (Manual) 0.1 L Monocytes # (Manual) 1.0 H Eosinophils # (Manual) 0.6 H PT INR APTT Fibrinogen POC ABG pH 7.315 L ABG pH POC ABG pCO2 57.8 H POC ABG pO2 68 L ABG pO2 ABG HCO3 ABG O2 Saturation ABG Base Excess ABG Hemoglobin Oxyhemoglobin Sodium Potassium Chloride 96.3 L Carbon Dioxide BUN 102 H Creatinine 7.0 H Glucose 103 H POC Glucose Uric Acid Calcium Phosphorus Magnesium Iron TIBC AST ALT Total Creatine Kinase CK-MB (CK-2) Troponin T NT-Pro-B Natriuret Pep Total Protein Albumin Triglycerides HDL Cholesterol Folate Urine WBC (Auto) Urine Creatinine Urine Total Protein Vancomycin Trough 05/22/19 05/22/19 05/22/19 03:54 06:25 06:25 WBC RBC 3.22 L Hgb 8.6 L Hct 27.0 L MCV MCH 27 L MCHC RDW 17.5 H Plt Count Lymph % (Auto) [place] % (Auto) 16.2 H Eos % (Auto) 10.8 H Lymph # [place] # 1.3 H Eos # 0.9 H Seg Neutrophils % Seg Neuts % (Manual) Lymphocytes % (Manual) 10.0 L Monocytes % (Manual) 13.0 H Eosinophils % (Manual) 8.0 H Nucleated RBC % Seg Neutrophils # Seg Neutrophils # Man Lymphocytes # (Manual) 0.9 L Monocytes # (Manual) 1.1 H Eosinophils # (Manual) 0.7 H PT INR APTT Fibrinogen POC ABG pH 7.313 L ABG pH POC ABG pCO2 55.0 H POC ABG pO2 ABG pO2 ABG HCO3 ABG O2 Saturation ABG Base Excess ABG Hemoglobin Oxyhemoglobin Sodium 135 L Potassium Chloride 94.3 L Carbon Dioxide BUN 117 H Creatinine 7.8 H Glucose POC Glucose Uric Acid Calcium 8.2 L Phosphorus Magnesium Iron TIBC AST ALT Total Creatine Kinase CK-MB (CK-2) Troponin T NT-Pro-B Natriuret Pep Total Protein Albumin Triglycerides HDL Cholesterol Folate Urine WBC (Auto) Urine Creatinine Urine Total Protein Vancomycin Trough 05/23/19 05/24/19 05/24/19 05:21 05:00 05:00 WBC RBC 3.18 L Hgb 8.5 L Hct 26.7 L MCV MCH 27 L MCHC RDW 17.9 H Plt Count Lymph % (Auto) [place] % (Auto) Eos % (Auto) Lymph # [place] # Eos # Seg Neutrophils % Seg Neuts % (Manual) Lymphocytes % (Manual) Monocytes % (Manual) Eosinophils % (Manual) Nucleated RBC % Seg Neutrophils # Seg Neutrophils # Man Lymphocytes # (Manual) Monocytes # (Manual) Eosinophils # (Manual) PT INR APTT Fibrinogen POC ABG pH ABG pH POC ABG pCO2 49.7 H POC ABG pO2 73 L ABG pO2 ABG HCO3 ABG O2 Saturation ABG Base Excess ABG Hemoglobin Oxyhemoglobin Sodium Potassium Chloride 95.7 L Carbon Dioxide BUN 97 H Creatinine 6.5 H Glucose POC Glucose Uric Acid Calcium 8.0 L Phosphorus Magnesium Iron TIBC AST ALT Total Creatine Kinase CK-MB (CK-2) Troponin T NT-Pro-B Natriuret Pep Total Protein Albumin Triglycerides HDL Cholesterol Folate Urine WBC (Auto) Urine Creatinine Urine Total Protein Vancomycin Trough 05/24/19 05/25/19 05/25/19 06:17 04:22 15:45 WBC RBC 2.98 L Hgb 8.1 L Hct 24.9 L MCV MCH 27 L MCHC RDW 17.8 H Plt Count Lymph % (Auto) [place] % (Auto) Eos % (Auto) Lymph # [place] # Eos # Seg Neutrophils % Seg Neuts % (Manual) Lymphocytes % (Manual) Monocytes % (Manual) Eosinophils % (Manual) Nucleated RBC % Seg Neutrophils # Seg Neutrophils # Man Lymphocytes # (Manual) Monocytes # (Manual) Eosinophils # (Manual) PT INR APTT Fibrinogen POC ABG pH 7.330 L 7.313 L ABG pH POC ABG pCO2 52.5 H 51.1 H POC ABG pO2 77 L ABG pO2 ABG HCO3 ABG O2 Saturation ABG Base Excess ABG Hemoglobin Oxyhemoglobin Sodium Potassium Chloride Carbon Dioxide BUN Creatinine Glucose POC Glucose Uric Acid Calcium Phosphorus Magnesium Iron TIBC AST ALT Total Creatine Kinase CK-MB (CK-2) Troponin T NT-Pro-B Natriuret Pep Total Protein Albumin Triglycerides HDL Cholesterol Folate Urine WBC (Auto) Urine Creatinine Urine Total Protein Vancomycin Trough 05/25/19 05/26/19 05/26/19 15:45 04:13 05:00 WBC RBC 3.10 L Hgb 8.4 L Hct 26.0 L MCV MCH 27 L MCHC RDW 17.4 H Plt Count Lymph % (Auto) [place] % (Auto) Eos % (Auto) Lymph # [place] # Eos # Seg Neutrophils % Seg Neuts % (Manual) Lymphocytes % (Manual) Monocytes % (Manual) Eosinophils % (Manual) Nucleated RBC % Seg Neutrophils # Seg Neutrophils # Man Lymphocytes # (Manual) Monocytes # (Manual) Eosinophils # (Manual) PT INR APTT Fibrinogen POC ABG pH 7.295 L ABG pH POC ABG pCO2 56.5 H POC ABG pO2 63 L ABG pO2 ABG HCO3 ABG O2 Saturation ABG Base Excess ABG Hemoglobin Oxyhemoglobin Sodium 136 L Potassium Chloride 96.8 L Carbon Dioxide BUN 83 H Creatinine 5.9 H Glucose POC Glucose Uric Acid Calcium 7.6 L Phosphorus Magnesium Iron TIBC AST ALT Total Creatine Kinase CK-MB (CK-2) Troponin T NT-Pro-B Natriuret Pep Total Protein Albumin Triglycerides HDL Cholesterol Folate Urine WBC (Auto) Urine Creatinine Urine Total Protein Vancomycin Trough 05/26/19 05/27/19 05/28/19 05:00 04:48 04:47 WBC RBC Hgb Hct MCV MCH MCHC RDW Plt Count Lymph % (Auto) [place] % (Auto) Eos % (Auto) Lymph # [place] # Eos # Seg Neutrophils % Seg Neuts % (Manual) Lymphocytes % (Manual) Monocytes % (Manual) Eosinophils % (Manual) Nucleated RBC % Seg Neutrophils # Seg Neutrophils # Man Lymphocytes # (Manual) Monocytes # (Manual) Eosinophils # (Manual) PT INR APTT Fibrinogen POC ABG pH 7.323 L ABG pH 7.284 L POC ABG pCO2 56.2 H POC ABG pO2 ABG pO2 71.6 L ABG HCO3 ABG O2 Saturation 92.0 L ABG Base Excess ABG Hemoglobin 7.7 L Oxyhemoglobin 89.9 L Sodium 136 L Potassium Chloride 95.3 L Carbon Dioxide BUN 96 H Creatinine 6.5 H Glucose 108 H POC Glucose Uric Acid Calcium 7.6 L Phosphorus Magnesium Iron TIBC AST ALT Total Creatine Kinase CK-MB (CK-2) Troponin T NT-Pro-B Natriuret Pep Total Protein Albumin Triglycerides HDL Cholesterol Folate Urine WBC (Auto) Urine Creatinine Urine Total Protein Vancomycin Trough 05/28/19 05/29/19 05/29/19 12:30 12:47 23:44 WBC RBC Hgb Hct MCV MCH MCHC RDW Plt Count Lymph % (Auto) [place] % (Auto) Eos % (Auto) Lymph # [place] # Eos # Seg Neutrophils % Seg Neuts % (Manual) Lymphocytes % (Manual) Monocytes % (Manual) Eosinophils % (Manual) Nucleated RBC % Seg Neutrophils # Seg Neutrophils # Man Lymphocytes # (Manual) Monocytes # (Manual) Eosinophils # (Manual) PT INR APTT Fibrinogen POC ABG pH ABG pH POC ABG pCO2 POC ABG pO2 ABG pO2 ABG HCO3 ABG O2 Saturation ABG Base Excess ABG Hemoglobin Oxyhemoglobin Sodium 135 L Potassium Chloride 95.3 L Carbon Dioxide BUN 82 H Creatinine 6.0 H Glucose POC Glucose 136 H 159 H Uric Acid Calcium 7.5 L Phosphorus Magnesium Iron TIBC AST ALT Total Creatine Kinase CK-MB (CK-2) Troponin T NT-Pro-B Natriuret Pep Total Protein Albumin Triglycerides HDL Cholesterol Folate Urine WBC (Auto) Urine Creatinine Urine Total Protein Vancomycin Trough 05/30/19 05/30/19 05/30/19 04:30 05:38 12:00 WBC RBC 3.01 L Hgb 8.2 L Hct 25.3 L MCV MCH 27 L MCHC RDW 17.5 H Plt Count Lymph % (Auto) [place] % (Auto) Eos % (Auto) Lymph # [place] # Eos # Seg Neutrophils % Seg Neuts % (Manual) 80.0 H Lymphocytes % (Manual) 10.0 L Monocytes % (Manual) Eosinophils % (Manual) Nucleated RBC % Seg Neutrophils # Seg Neutrophils # Man 8.0 H Lymphocytes # (Manual) 1.0 L Monocytes # (Manual) Eosinophils # (Manual) PT INR APTT Fibrinogen POC ABG pH ABG pH POC ABG pCO2 POC ABG pO2 73 L ABG pO2 ABG HCO3 ABG O2 Saturation ABG Base Excess ABG Hemoglobin Oxyhemoglobin Sodium Potassium Chloride Carbon Dioxide BUN Creatinine Glucose POC Glucose 166 H Uric Acid Calcium Phosphorus Magnesium Iron TIBC AST ALT Total Creatine Kinase CK-MB (CK-2) Troponin T NT-Pro-B Natriuret Pep Total Protein Albumin Triglycerides HDL Cholesterol Folate Urine WBC (Auto) Urine Creatinine Urine Total Protein Vancomycin Trough 05/30/19 05/31/19 05/31/19 23:45 04:07 13:04 WBC 14.3 H RBC 2.88 L Hgb 7.7 L Hct 23.9 L MCV 83 L MCH 27 L MCHC RDW 17.8 H Plt Count Lymph % (Auto) [place] % (Auto) Eos % (Auto) Lymph # [place] # Eos # Seg Neutrophils % Seg Neuts % (Manual) 83.0 H Lymphocytes % (Manual) 11.0 L Monocytes % (Manual) Eosinophils % (Manual) Nucleated RBC % Seg Neutrophils # Seg Neutrophils # Man 11.9 H Lymphocytes # (Manual) Monocytes # (Manual) 0.9 H Eosinophils # (Manual) PT INR APTT Fibrinogen POC ABG pH ABG pH POC ABG pCO2 47.4 H POC ABG pO2 ABG pO2 ABG HCO3 ABG O2 Saturation ABG Base Excess ABG Hemoglobin Oxyhemoglobin Sodium Potassium Chloride Carbon Dioxide BUN Creatinine Glucose POC Glucose 209 H Uric Acid Calcium Phosphorus Magnesium Iron TIBC AST ALT Total Creatine Kinase CK-MB (CK-2) Troponin T NT-Pro-B Natriuret Pep Total Protein Albumin Triglycerides HDL Cholesterol Folate Urine WBC (Auto) Urine Creatinine Urine Total Protein Vancomycin Trough 05/31/19 05/31/19 06/01/19 13:04 16:42 00:15 WBC RBC Hgb Hct MCV MCH MCHC RDW Plt Count Lymph % (Auto) [place] % (Auto) Eos % (Auto) Lymph # [place] # Eos # Seg Neutrophils % Seg Neuts % (Manual) Lymphocytes % (Manual) Monocytes % (Manual) Eosinophils % (Manual) Nucleated RBC % Seg Neutrophils # Seg Neutrophils # Man Lymphocytes # (Manual) Monocytes # (Manual) Eosinophils # (Manual) PT INR APTT Fibrinogen POC ABG pH ABG pH POC ABG pCO2 POC ABG pO2 ABG pO2 ABG HCO3 ABG O2 Saturation ABG Base Excess ABG Hemoglobin Oxyhemoglobin Sodium 129 L Potassium Chloride 88.6 L Carbon Dioxide 19 L BUN 117 H Creatinine 6.7 H Glucose 205 H POC Glucose 228 H 223 H Uric Acid Calcium 7.4 L Phosphorus 7.40 H Magnesium Iron TIBC AST 58 H ALT 149 H Total Creatine Kinase CK-MB (CK-2) Troponin T NT-Pro-B Natriuret Pep Total Protein 6.0 L Albumin 2.5 L Triglycerides HDL Cholesterol Folate Urine WBC (Auto) Urine Creatinine Urine Total Protein Vancomycin Trough 06/01/19 06/01/19 06/01/19 04:33 05:27 12:31 WBC RBC Hgb Hct MCV MCH MCHC RDW Plt Count Lymph % (Auto) [place] % (Auto) Eos % (Auto) Lymph # [place] # Eos # Seg Neutrophils % Seg Neuts % (Manual) Lymphocytes % (Manual) Monocytes % (Manual) Eosinophils % (Manual) Nucleated RBC % Seg Neutrophils # Seg Neutrophils # Man Lymphocytes # (Manual) Monocytes # (Manual) Eosinophils # (Manual) PT INR APTT Fibrinogen POC ABG pH ABG pH POC ABG pCO2 POC ABG pO2 ABG pO2 56.9 L ABG HCO3 ABG O2 Saturation 85.9 L ABG Base Excess ABG Hemoglobin 8.1 L Oxyhemoglobin 83.6 L Sodium Potassium Chloride Carbon Dioxide BUN Creatinine Glucose POC Glucose 183 H 217 H Uric Acid Calcium Phosphorus Magnesium Iron TIBC AST ALT Total Creatine Kinase CK-MB (CK-2) Troponin T NT-Pro-B Natriuret Pep Total Protein Albumin Triglycerides HDL Cholesterol Folate Urine WBC (Auto) Urine Creatinine Urine Total Protein Vancomycin Trough 06/01/19 06/02/19 06/02/19 18:20 00:00 05:33 WBC RBC Hgb Hct MCV MCH MCHC RDW Plt Count Lymph % (Auto) [place] % (Auto) Eos % (Auto) Lymph # [place] # Eos # Seg Neutrophils % Seg Neuts % (Manual) Lymphocytes % (Manual) Monocytes % (Manual) Eosinophils % (Manual) Nucleated RBC % Seg Neutrophils # Seg Neutrophils # Man Lymphocytes # (Manual) Monocytes # (Manual) Eosinophils # (Manual) PT INR APTT Fibrinogen POC ABG pH ABG pH POC ABG pCO2 POC ABG pO2 ABG pO2 ABG HCO3 ABG O2 Saturation ABG Base Excess ABG Hemoglobin Oxyhemoglobin Sodium Potassium Chloride Carbon Dioxide BUN Creatinine Glucose POC Glucose 265 H 279 H 259 H Uric Acid Calcium Phosphorus Magnesium Iron TIBC AST ALT Total Creatine Kinase CK-MB (CK-2) Troponin T NT-Pro-B Natriuret Pep Total Protein Albumin Triglycerides HDL Cholesterol Folate Urine WBC (Auto) Urine Creatinine Urine Total Protein Vancomycin Trough 06/02/19 06/02/19 06/02/19 11:06 11:06 11:42 WBC 13.1 H RBC 2.92 L Hgb 7.9 L Hct 24.4 L MCV MCH 27 L MCHC RDW 17.4 H Plt Count Lymph % (Auto) [place] % (Auto) Eos % (Auto) Lymph # [place] # Eos # Seg Neutrophils % Seg Neuts % (Manual) 78.0 H Lymphocytes % (Manual) 12.0 L Monocytes % (Manual) 10.0 H Eosinophils % (Manual) Nucleated RBC % Seg Neutrophils # Seg Neutrophils # Man 10.2 H Lymphocytes # (Manual) Monocytes # (Manual) 1.3 H Eosinophils # (Manual) PT INR APTT Fibrinogen POC ABG pH ABG pH POC ABG pCO2 POC ABG pO2 ABG pO2 ABG HCO3 ABG O2 Saturation ABG Base Excess ABG Hemoglobin Oxyhemoglobin Sodium 135 L Potassium Chloride 94.7 L Carbon Dioxide 21 L BUN 107 H Creatinine 4.5 H Glucose 286 H POC Glucose 263 H Uric Acid Calcium 7.9 L Phosphorus 6.30 H Magnesium Iron TIBC AST ALT 104 H Total Creatine Kinase CK-MB (CK-2) Troponin T NT-Pro-B Natriuret Pep Total Protein 6.0 L Albumin 2.7 L Triglycerides HDL Cholesterol Folate Urine WBC (Auto) Urine Creatinine Urine Total Protein Vancomycin Trough 06/02/19 06/02/19 06/03/19 18:17 23:55 05:30 WBC RBC Hgb Hct MCV MCH MCHC RDW Plt Count Lymph % (Auto) [place] % (Auto) Eos % (Auto) Lymph # [place] # Eos # Seg Neutrophils % Seg Neuts % (Manual) Lymphocytes % (Manual) Monocytes % (Manual) Eosinophils % (Manual) Nucleated RBC % Seg Neutrophils # Seg Neutrophils # Man Lymphocytes # (Manual) Monocytes # (Manual) Eosinophils # (Manual) PT INR APTT Fibrinogen POC ABG pH ABG pH POC ABG pCO2 POC ABG pO2 ABG pO2 ABG HCO3 ABG O2 Saturation ABG Base Excess ABG Hemoglobin Oxyhemoglobin Sodium Potassium Chloride 95.1 L Carbon Dioxide 21 L BUN 119 H Creatinine 4.1 H Glucose 330 H POC Glucose 276 H 244 H Uric Acid Calcium 8.1 L Phosphorus Magnesium Iron TIBC AST ALT 98 H Total Creatine Kinase CK-MB (CK-2) Troponin T NT-Pro-B Natriuret Pep Total Protein 5.8 L Albumin 2.8 L Triglycerides HDL Cholesterol Folate Urine WBC (Auto) Urine Creatinine Urine Total Protein Vancomycin Trough 06/03/19 06/03/19 06/03/19 05:30 06:04 09:42 WBC 12.8 H RBC 3.01 L Hgb 8.2 L Hct 25.4 L MCV MCH 27 L MCHC RDW 17.5 H Plt Count Lymph % (Auto) [place] % (Auto) Eos % (Auto) Lymph # [place] # Eos # Seg Neutrophils % Seg Neuts % (Manual) 78.0 H Lymphocytes % (Manual) 10.0 L Monocytes % (Manual) 12.0 H Eosinophils % (Manual) Nucleated RBC % Seg Neutrophils # Seg Neutrophils # Man 10.0 H Lymphocytes # (Manual) Monocytes # (Manual) 1.5 H Eosinophils # (Manual) PT INR APTT Fibrinogen POC ABG pH ABG pH POC ABG pCO2 POC ABG pO2 ABG pO2 ABG HCO3 ABG O2 Saturation ABG Base Excess ABG Hemoglobin Oxyhemoglobin Sodium Potassium Chloride Carbon Dioxide BUN 106 H Creatinine Glucose POC Glucose 254 H Uric Acid Calcium Phosphorus Magnesium Iron TIBC AST ALT Total Creatine Kinase CK-MB (CK-2) Troponin T NT-Pro-B Natriuret Pep Total Protein Albumin Triglycerides HDL Cholesterol Folate Urine WBC (Auto) Urine Creatinine Urine Total Protein Vancomycin Trough 06/03/19 06/03/19 06/03/19 12:52 17:25 23:37 WBC RBC Hgb Hct MCV MCH MCHC RDW Plt Count Lymph % (Auto) [place] % (Auto) Eos % (Auto) Lymph # [place] # Eos # Seg Neutrophils % Seg Neuts % (Manual) Lymphocytes % (Manual) Monocytes % (Manual) Eosinophils % (Manual) Nucleated RBC % Seg Neutrophils # Seg Neutrophils # Man Lymphocytes # (Manual) Monocytes # (Manual) Eosinophils # (Manual) PT INR APTT Fibrinogen POC ABG pH ABG pH POC ABG pCO2 POC ABG pO2 ABG pO2 ABG HCO3 ABG O2 Saturation ABG Base Excess ABG Hemoglobin Oxyhemoglobin Sodium Potassium Chloride Carbon Dioxide BUN Creatinine Glucose POC Glucose 274 H 285 H 310 H Uric Acid Calcium Phosphorus Magnesium Iron TIBC AST ALT Total Creatine Kinase CK-MB (CK-2) Troponin T NT-Pro-B Natriuret Pep Total Protein Albumin Triglycerides HDL Cholesterol Folate Urine WBC (Auto) Urine Creatinine Urine Total Protein Vancomycin Trough 06/04/19 06/04/19 06/04/19 04:57 05:03 11:50 WBC RBC Hgb Hct MCV MCH MCHC RDW Plt Count Lymph % (Auto) [place] % (Auto) Eos % (Auto) Lymph # [place] # Eos # Seg Neutrophils % Seg Neuts % (Manual) Lymphocytes % (Manual) Monocytes % (Manual) Eosinophils % (Manual) Nucleated RBC % Seg Neutrophils # Seg Neutrophils # Man Lymphocytes # (Manual) Monocytes # (Manual) Eosinophils # (Manual) PT INR APTT Fibrinogen POC ABG pH 7.488 H ABG pH POC ABG pCO2 POC ABG pO2 ABG pO2 ABG HCO3 ABG O2 Saturation ABG Base Excess ABG Hemoglobin Oxyhemoglobin Sodium Potassium Chloride Carbon Dioxide BUN Creatinine Glucose POC Glucose 275 H 279 H Uric Acid Calcium Phosphorus Magnesium Iron TIBC AST ALT Total Creatine Kinase CK-MB (CK-2) Troponin T NT-Pro-B Natriuret Pep Total Protein Albumin Triglycerides HDL Cholesterol Folate Urine WBC (Auto) Urine Creatinine Urine Total Protein Vancomycin Trough 06/04/19 06/04/19 06/04/19 18:32 22:03 23:55 WBC RBC Hgb Hct MCV MCH MCHC RDW Plt Count Lymph % (Auto) [place] % (Auto) Eos % (Auto) Lymph # [place] # Eos # Seg Neutrophils % Seg Neuts % (Manual) Lymphocytes % (Manual) Monocytes % (Manual) Eosinophils % (Manual) Nucleated RBC % Seg Neutrophils # Seg Neutrophils # Man Lymphocytes # (Manual) Monocytes # (Manual) Eosinophils # (Manual) PT INR APTT Fibrinogen POC ABG pH ABG pH POC ABG pCO2 POC ABG pO2 ABG pO2 ABG HCO3 ABG O2 Saturation ABG Base Excess ABG Hemoglobin Oxyhemoglobin Sodium Potassium Chloride Carbon Dioxide BUN Creatinine Glucose POC Glucose 267 H 307 H 292 H Uric Acid Calcium Phosphorus Magnesium Iron TIBC AST ALT Total Creatine Kinase CK-MB (CK-2) Troponin T NT-Pro-B Natriuret Pep Total Protein Albumin Triglycerides HDL Cholesterol Folate Urine WBC (Auto) Urine Creatinine Urine Total Protein Vancomycin Trough 06/05/19 06/05/19 06/05/19 03:52 06:41 12:29 WBC RBC Hgb Hct MCV MCH MCHC RDW Plt Count Lymph % (Auto) [place] % (Auto) Eos % (Auto) Lymph # [place] # Eos # Seg Neutrophils % Seg Neuts % (Manual) Lymphocytes % (Manual) Monocytes % (Manual) Eosinophils % (Manual) Nucleated RBC % Seg Neutrophils # Seg Neutrophils # Man Lymphocytes # (Manual) Monocytes # (Manual) Eosinophils # (Manual) PT INR APTT Fibrinogen POC ABG pH 7.462 H ABG pH POC ABG pCO2 POC ABG pO2 ABG pO2 ABG HCO3 ABG O2 Saturation ABG Base Excess ABG Hemoglobin Oxyhemoglobin Sodium Potassium Chloride Carbon Dioxide BUN Creatinine Glucose POC Glucose 369 H 265 H Uric Acid Calcium Phosphorus Magnesium Iron TIBC AST ALT Total Creatine Kinase CK-MB (CK-2) Troponin T NT-Pro-B Natriuret Pep Total Protein Albumin Triglycerides HDL Cholesterol Folate Urine WBC (Auto) Urine Creatinine Urine Total Protein Vancomycin Trough 06/05/19 06/05/19 06/05/19 18:20 21:42 23:21 WBC RBC Hgb Hct MCV MCH MCHC RDW Plt Count Lymph % (Auto) [place] % (Auto) Eos % (Auto) Lymph # [place] # Eos # Seg Neutrophils % Seg Neuts % (Manual) Lymphocytes % (Manual) Monocytes % (Manual) Eosinophils % (Manual) Nucleated RBC % Seg Neutrophils # Seg Neutrophils # Man Lymphocytes # (Manual) Monocytes # (Manual) Eosinophils # (Manual) PT INR APTT Fibrinogen POC ABG pH ABG pH POC ABG pCO2 POC ABG pO2 ABG pO2 ABG HCO3 ABG O2 Saturation ABG Base Excess ABG Hemoglobin Oxyhemoglobin Sodium Potassium Chloride Carbon Dioxide BUN Creatinine Glucose POC Glucose 249 H 246 H 274 H Uric Acid Calcium Phosphorus Magnesium Iron TIBC AST ALT Total Creatine Kinase CK-MB (CK-2) Troponin T NT-Pro-B Natriuret Pep Total Protein Albumin Triglycerides HDL Cholesterol Folate Urine WBC (Auto) Urine Creatinine Urine Total Protein Vancomycin Trough 06/06/19 06/06/19 06/06/19 04:00 05:49 11:34 WBC 18.1 H RBC 3.53 L Hgb 9.5 L Hct 30.3 L MCV MCH 27 L MCHC 31 L RDW 19.5 H Plt Count Lymph % (Auto) [place] % (Auto) Eos % (Auto) Lymph # [place] # Eos # Seg Neutrophils % Seg Neuts % (Manual) 87.0 H Lymphocytes % (Manual) 3.0 L Monocytes % (Manual) 8.0 H Eosinophils % (Manual) Nucleated RBC % Seg Neutrophils # Seg Neutrophils # Man 15.7 H Lymphocytes # (Manual) 0.5 L Monocytes # (Manual) 1.4 H Eosinophils # (Manual) PT INR APTT Fibrinogen POC ABG pH ABG pH 7.472 H POC ABG pCO2 POC ABG pO2 ABG pO2 76.4 L ABG HCO3 28.1 H ABG O2 Saturation ABG Base Excess 4.3 H ABG Hemoglobin 12.5 L Oxyhemoglobin 93.8 L Sodium Potassium Chloride Carbon Dioxide BUN Creatinine Glucose POC Glucose 340 H Uric Acid Calcium Phosphorus Magnesium Iron TIBC AST ALT Total Creatine Kinase CK-MB (CK-2) Troponin T NT-Pro-B Natriuret Pep Total Protein Albumin Triglycerides HDL Cholesterol Folate Urine WBC (Auto) Urine Creatinine Urine Total Protein Vancomycin Trough 06/06/19 06/06/19 06/06/19 11:34 12:11 18:10 WBC RBC Hgb Hct MCV MCH MCHC RDW Plt Count Lymph % (Auto) [place] % (Auto) Eos % (Auto) Lymph # [place] # Eos # Seg Neutrophils % Seg Neuts % (Manual) Lymphocytes % (Manual) Monocytes % (Manual) Eosinophils % (Manual) Nucleated RBC % Seg Neutrophils # Seg Neutrophils # Man Lymphocytes # (Manual) Monocytes # (Manual) Eosinophils # (Manual) PT INR APTT Fibrinogen POC ABG pH ABG pH POC ABG pCO2 POC ABG pO2 ABG pO2 ABG HCO3 ABG O2 Saturation ABG Base Excess ABG Hemoglobin Oxyhemoglobin Sodium Potassium Chloride Carbon Dioxide BUN 70 H Creatinine Glucose 310 H POC Glucose 283 H 301 H Uric Acid Calcium 8.3 L Phosphorus 4.60 H Magnesium Iron TIBC AST ALT 75 H Total Creatine Kinase CK-MB (CK-2) Troponin T NT-Pro-B Natriuret Pep Total Protein 5.6 L Albumin 2.9 L Triglycerides HDL Cholesterol Folate Urine WBC (Auto) Urine Creatinine Urine Total Protein Vancomycin Trough 06/06/19 06/06/19 06/07/19 22:21 23:16 04:30 WBC RBC Hgb Hct MCV MCH MCHC RDW Plt Count Lymph % (Auto) [place] % (Auto) Eos % (Auto) Lymph # [place] # Eos # Seg Neutrophils % Seg Neuts % (Manual) Lymphocytes % (Manual) Monocytes % (Manual) Eosinophils % (Manual) Nucleated RBC % Seg Neutrophils # Seg Neutrophils # Man Lymphocytes # (Manual) Monocytes # (Manual) Eosinophils # (Manual) PT INR APTT Fibrinogen POC ABG pH ABG pH 7.480 H POC ABG pCO2 POC ABG pO2 ABG pO2 77.0 L ABG HCO3 27.2 H ABG O2 Saturation ABG Base Excess 3.5 H ABG Hemoglobin 7.1 L Oxyhemoglobin 94.2 L Sodium Potassium Chloride Carbon Dioxide BUN Creatinine Glucose POC Glucose 289 H 343 H Uric Acid Calcium Phosphorus Magnesium Iron TIBC AST ALT Total Creatine Kinase CK-MB (CK-2) Troponin T NT-Pro-B Natriuret Pep Total Protein Albumin Triglycerides HDL Cholesterol Folate Urine WBC (Auto) Urine Creatinine Urine Total Protein Vancomycin Trough 06/07/19 06/07/19 06/07/19 05:15 12:52 18:41 WBC RBC Hgb Hct MCV MCH MCHC RDW Plt Count Lymph % (Auto) [place] % (Auto) Eos % (Auto) Lymph # [place] # Eos # Seg Neutrophils % Seg Neuts % (Manual) Lymphocytes % (Manual) Monocytes % (Manual) Eosinophils % (Manual) Nucleated RBC % Seg Neutrophils # Seg Neutrophils # Man Lymphocytes # (Manual) Monocytes # (Manual) Eosinophils # (Manual) PT INR APTT Fibrinogen POC ABG pH ABG pH POC ABG pCO2 POC ABG pO2 ABG pO2 ABG HCO3 ABG O2 Saturation ABG Base Excess ABG Hemoglobin Oxyhemoglobin Sodium Potassium Chloride Carbon Dioxide BUN Creatinine Glucose POC Glucose 307 H 226 H 187 H Uric Acid Calcium Phosphorus Magnesium Iron TIBC AST ALT Total Creatine Kinase CK-MB (CK-2) Troponin T NT-Pro-B Natriuret Pep Total Protein Albumin Triglycerides HDL Cholesterol Folate Urine WBC (Auto) Urine Creatinine Urine Total Protein Vancomycin Trough 06/07/19 06/07/19 06/08/19 22:54 23:46 04:20 WBC 16.0 H RBC Hgb 10.0 L Hct 32.1 L MCV MCH 27 L MCHC 31 L RDW 19.4 H Plt Count Lymph % (Auto) [place] % (Auto) Eos % (Auto) Lymph # [place] # Eos # Seg Neutrophils % Seg Neuts % (Manual) 87.0 H Lymphocytes % (Manual) 7.0 L Monocytes % (Manual) Eosinophils % (Manual) Nucleated RBC % Seg Neutrophils # Seg Neutrophils # Man 13.9 H Lymphocytes # (Manual) 1.1 L Monocytes # (Manual) 1.0 H Eosinophils # (Manual) PT INR APTT Fibrinogen POC ABG pH ABG pH POC ABG pCO2 POC ABG pO2 ABG pO2 ABG HCO3 ABG O2 Saturation ABG Base Excess ABG Hemoglobin Oxyhemoglobin Sodium Potassium Chloride Carbon Dioxide BUN Creatinine Glucose POC Glucose 199 H 172 H Uric Acid Calcium Phosphorus Magnesium Iron TIBC AST ALT Total Creatine Kinase CK-MB (CK-2) Troponin T NT-Pro-B Natriuret Pep Total Protein Albumin Triglycerides HDL Cholesterol Folate Urine WBC (Auto) Urine Creatinine Urine Total Protein Vancomycin Trough 06/08/19 06/08/19 06/08/19 04:20 05:15 11:31 WBC RBC Hgb Hct MCV MCH MCHC RDW Plt Count Lymph % (Auto) [place] % (Auto) Eos % (Auto) Lymph # [place] # Eos # Seg Neutrophils % Seg Neuts % (Manual) Lymphocytes % (Manual) Monocytes % (Manual) Eosinophils % (Manual) Nucleated RBC % Seg Neutrophils # Seg Neutrophils # Man Lymphocytes # (Manual) Monocytes # (Manual) Eosinophils # (Manual) PT INR APTT Fibrinogen POC ABG pH ABG pH POC ABG pCO2 POC ABG pO2 ABG pO2 ABG HCO3 ABG O2 Saturation ABG Base Excess ABG Hemoglobin Oxyhemoglobin Sodium 146 H D Potassium Chloride Carbon Dioxide BUN 77 H Creatinine Glucose 205 H POC Glucose 209 H 181 H Uric Acid Calcium Phosphorus Magnesium Iron TIBC AST ALT 66 H Total Creatine Kinase CK-MB (CK-2) Troponin T NT-Pro-B Natriuret Pep Total Protein 5.5 L Albumin 2.9 L Triglycerides HDL Cholesterol Folate Urine WBC (Auto) Urine Creatinine Urine Total Protein Vancomycin Trough 06/08/19 06/08/19 06/09/19 17:28 23:24 05:20 WBC RBC Hgb Hct MCV MCH MCHC RDW Plt Count Lymph % (Auto) [place] % (Auto) Eos % (Auto) Lymph # [place] # Eos # Seg Neutrophils % Seg Neuts % (Manual) Lymphocytes % (Manual) Monocytes % (Manual) Eosinophils % (Manual) Nucleated RBC % Seg Neutrophils # Seg Neutrophils # Man Lymphocytes # (Manual) Monocytes # (Manual) Eosinophils # (Manual) PT INR APTT Fibrinogen POC ABG pH ABG pH POC ABG pCO2 POC ABG pO2 ABG pO2 ABG HCO3 ABG O2 Saturation ABG Base Excess ABG Hemoglobin Oxyhemoglobin Sodium Potassium Chloride Carbon Dioxide BUN Creatinine Glucose POC Glucose 215 H 200 H 173 H Uric Acid Calcium Phosphorus Magnesium Iron TIBC AST ALT Total Creatine Kinase CK-MB (CK-2) Troponin T NT-Pro-B Natriuret Pep Total Protein Albumin Triglycerides HDL Cholesterol Folate Urine WBC (Auto) Urine Creatinine Urine Total Protein Vancomycin Trough 06/09/19 06/09/19 06/09/19 12:07 18:32 23:51 WBC RBC Hgb Hct MCV MCH MCHC RDW Plt Count Lymph % (Auto) [place] % (Auto) Eos % (Auto) Lymph # [place] # Eos # Seg Neutrophils % Seg Neuts % (Manual) Lymphocytes % (Manual) Monocytes % (Manual) Eosinophils % (Manual) Nucleated RBC % Seg Neutrophils # Seg Neutrophils # Man Lymphocytes # (Manual) Monocytes # (Manual) Eosinophils # (Manual) PT INR APTT Fibrinogen POC ABG pH ABG pH POC ABG pCO2 POC ABG pO2 ABG pO2 ABG HCO3 ABG O2 Saturation ABG Base Excess ABG Hemoglobin Oxyhemoglobin Sodium Potassium Chloride Carbon Dioxide BUN Creatinine Glucose POC Glucose 117 H 169 H 147 H Uric Acid Calcium Phosphorus Magnesium Iron TIBC AST ALT Total Creatine Kinase CK-MB (CK-2) Troponin T NT-Pro-B Natriuret Pep Total Protein Albumin Triglycerides HDL Cholesterol Folate Urine WBC (Auto) Urine Creatinine Urine Total Protein Vancomycin Trough 06/10/19 06/10/19 06/10/19 05:45 05:45 06:01 WBC 14.6 H RBC Hgb 9.9 L Hct 32.2 L MCV MCH 27 L MCHC 31 L RDW 19.6 H Plt Count Lymph % (Auto) 10.5 L [place] % (Auto) 9.4 H Eos % (Auto) Lymph # [place] # 1.4 H Eos # Seg Neutrophils % 79.9 H Seg Neuts % (Manual) Lymphocytes % (Manual) Monocytes % (Manual) Eosinophils % (Manual) Nucleated RBC % Seg Neutrophils # 11.7 H Seg Neutrophils # Man Lymphocytes # (Manual) Monocytes # (Manual) Eosinophils # (Manual) PT INR APTT Fibrinogen POC ABG pH ABG pH POC ABG pCO2 POC ABG pO2 ABG pO2 ABG HCO3 ABG O2 Saturation ABG Base Excess ABG Hemoglobin Oxyhemoglobin Sodium 150 H Potassium Chloride 108.3 H Carbon Dioxide BUN 49 H Creatinine Glucose 172 H POC Glucose 165 H Uric Acid Calcium Phosphorus Magnesium 1.40 L Iron TIBC AST ALT Total Creatine Kinase CK-MB (CK-2) Troponin T NT-Pro-B Natriuret Pep Total Protein Albumin Triglycerides HDL Cholesterol Folate Urine WBC (Auto) Urine Creatinine Urine Total Protein Vancomycin Trough 06/10/19 06/10/19 06/11/19 12:11 18:30 00:02 WBC RBC Hgb Hct MCV MCH MCHC RDW Plt Count Lymph % (Auto) [place] % (Auto) Eos % (Auto) Lymph # [place] # Eos # Seg Neutrophils % Seg Neuts % (Manual) Lymphocytes % (Manual) Monocytes % (Manual) Eosinophils % (Manual) Nucleated RBC % Seg Neutrophils # Seg Neutrophils # Man Lymphocytes # (Manual) Monocytes # (Manual) Eosinophils # (Manual) PT INR APTT Fibrinogen POC ABG pH ABG pH POC ABG pCO2 POC ABG pO2 ABG pO2 ABG HCO3 ABG O2 Saturation ABG Base Excess ABG Hemoglobin Oxyhemoglobin Sodium Potassium Chloride Carbon Dioxide BUN Creatinine Glucose POC Glucose 150 H 154 H 130 H Uric Acid Calcium Phosphorus Magnesium Iron TIBC AST ALT Total Creatine Kinase CK-MB (CK-2) Troponin T NT-Pro-B Natriuret Pep Total Protein Albumin Triglycerides HDL Cholesterol Folate Urine WBC (Auto) Urine Creatinine Urine Total Protein Vancomycin Trough 06/11/19 06/11/19 06/11/19 05:33 08:34 12:33 WBC RBC Hgb Hct MCV MCH MCHC RDW Plt Count Lymph % (Auto) [place] % (Auto) Eos % (Auto) Lymph # [place] # Eos # Seg Neutrophils % Seg Neuts % (Manual) Lymphocytes % (Manual) Monocytes % (Manual) Eosinophils % (Manual) Nucleated RBC % Seg Neutrophils # Seg Neutrophils # Man Lymphocytes # (Manual) Monocytes # (Manual) Eosinophils # (Manual) PT INR APTT Fibrinogen POC ABG pH ABG pH POC ABG pCO2 POC ABG pO2 ABG pO2 ABG HCO3 ABG O2 Saturation ABG Base Excess ABG Hemoglobin Oxyhemoglobin Sodium 154 H Potassium Chloride 111.6 H Carbon Dioxide BUN 41 H Creatinine Glucose 147 H POC Glucose 183 H 185 H Uric Acid Calcium Phosphorus Magnesium Iron TIBC AST ALT Total Creatine Kinase CK-MB (CK-2) Troponin T NT-Pro-B Natriuret Pep Total Protein Albumin Triglycerides HDL Cholesterol Folate Urine WBC (Auto) Urine Creatinine Urine Total Protein Vancomycin Trough 06/11/19 06/11/19 06/12/19 18:22 23:46 03:21 WBC 11.9 H RBC 3.61 L Hgb 9.9 L Hct 31.7 L MCV MCH 27 L MCHC 31 L RDW 19.3 H Plt Count Lymph % (Auto) 10.6 L [place] % (Auto) 8.6 H Eos % (Auto) Lymph # [place] # 1.0 H Eos # Seg Neutrophils % 80.6 H Seg Neuts % (Manual) Lymphocytes % (Manual) Monocytes % (Manual) Eosinophils % (Manual) Nucleated RBC % Seg Neutrophils # 9.6 H Seg Neutrophils # Man Lymphocytes # (Manual) Monocytes # (Manual) Eosinophils # (Manual) PT INR APTT Fibrinogen POC ABG pH ABG pH POC ABG pCO2 POC ABG pO2 ABG pO2 ABG HCO3 ABG O2 Saturation ABG Base Excess ABG Hemoglobin Oxyhemoglobin Sodium Potassium Chloride Carbon Dioxide BUN Creatinine Glucose POC Glucose 158 H 182 H Uric Acid Calcium Phosphorus Magnesium Iron TIBC AST ALT Total Creatine Kinase CK-MB (CK-2) Troponin T NT-Pro-B Natriuret Pep Total Protein Albumin Triglycerides HDL Cholesterol Folate Urine WBC (Auto) Urine Creatinine Urine Total Protein Vancomycin Trough 06/12/19 06/12/19 06/12/19 03:21 06:04 11:28 WBC RBC Hgb Hct MCV MCH MCHC RDW Plt Count Lymph % (Auto) [place] % (Auto) Eos % (Auto) Lymph # [place] # Eos # Seg Neutrophils % Seg Neuts % (Manual) Lymphocytes % (Manual) Monocytes % (Manual) Eosinophils % (Manual) Nucleated RBC % Seg Neutrophils # Seg Neutrophils # Man Lymphocytes # (Manual) Monocytes # (Manual) Eosinophils # (Manual) PT INR APTT Fibrinogen POC ABG pH ABG pH POC ABG pCO2 POC ABG pO2 ABG pO2 ABG HCO3 ABG O2 Saturation ABG Base Excess ABG Hemoglobin Oxyhemoglobin Sodium 148 H Potassium Chloride 107.3 H Carbon Dioxide BUN 34 H Creatinine 0.7 L Glucose 194 H POC Glucose 133 H 167 H Uric Acid Calcium Phosphorus Magnesium 1.40 L Iron TIBC AST ALT Total Creatine Kinase CK-MB (CK-2) Troponin T NT-Pro-B Natriuret Pep Total Protein Albumin Triglycerides HDL Cholesterol Folate Urine WBC (Auto) Urine Creatinine Urine Total Protein Vancomycin Trough 06/12/19 06/12/19 06/13/19 18:47 21:27 00:04 WBC RBC Hgb Hct MCV MCH MCHC RDW Plt Count Lymph % (Auto) [place] % (Auto) Eos % (Auto) Lymph # [place] # Eos # Seg Neutrophils % Seg Neuts % (Manual) Lymphocytes % (Manual) Monocytes % (Manual) Eosinophils % (Manual) Nucleated RBC % Seg Neutrophils # Seg Neutrophils # Man Lymphocytes # (Manual) Monocytes # (Manual) Eosinophils # (Manual) PT INR APTT Fibrinogen POC ABG pH ABG pH POC ABG pCO2 POC ABG pO2 ABG pO2 ABG HCO3 ABG O2 Saturation ABG Base Excess ABG Hemoglobin Oxyhemoglobin Sodium Potassium Chloride Carbon Dioxide BUN Creatinine Glucose POC Glucose 210 H 263 H 248 H Uric Acid Calcium Phosphorus Magnesium Iron TIBC AST ALT Total Creatine Kinase CK-MB (CK-2) Troponin T NT-Pro-B Natriuret Pep Total Protein Albumin Triglycerides HDL Cholesterol Folate Urine WBC (Auto) Urine Creatinine Urine Total Protein Vancomycin Trough 06/13/19 06/13/19 06/13/19 04:32 05:46 13:30 WBC RBC Hgb Hct MCV MCH MCHC RDW Plt Count Lymph % (Auto) [place] % (Auto) Eos % (Auto) Lymph # [place] # Eos # Seg Neutrophils % Seg Neuts % (Manual) Lymphocytes % (Manual) Monocytes % (Manual) Eosinophils % (Manual) Nucleated RBC % Seg Neutrophils # Seg Neutrophils # Man Lymphocytes # (Manual) Monocytes # (Manual) Eosinophils # (Manual) PT INR APTT Fibrinogen POC ABG pH ABG pH POC ABG pCO2 POC ABG pO2 ABG pO2 ABG HCO3 ABG O2 Saturation ABG Base Excess ABG Hemoglobin Oxyhemoglobin Sodium Potassium Chloride Carbon Dioxide BUN 27 H Creatinine 0.7 L Glucose 253 H POC Glucose 201 H 241 H Uric Acid Calcium Phosphorus Magnesium Iron TIBC AST ALT Total Creatine Kinase CK-MB (CK-2) Troponin T NT-Pro-B Natriuret Pep Total Protein Albumin Triglycerides HDL Cholesterol Folate Urine WBC (Auto) Urine Creatinine Urine Total Protein Vancomycin Trough 06/13/19 06/13/19 06/14/19 17:33 23:49 04:50 WBC RBC Hgb Hct MCV MCH MCHC RDW Plt Count Lymph % (Auto) [place] % (Auto) Eos % (Auto) Lymph # [place] # Eos # Seg Neutrophils % Seg Neuts % (Manual) Lymphocytes % (Manual) Monocytes % (Manual) Eosinophils % (Manual) Nucleated RBC % Seg Neutrophils # Seg Neutrophils # Man Lymphocytes # (Manual) Monocytes # (Manual) Eosinophils # (Manual) PT INR APTT Fibrinogen POC ABG pH ABG pH POC ABG pCO2 POC ABG pO2 ABG pO2 ABG HCO3 ABG O2 Saturation ABG Base Excess ABG Hemoglobin Oxyhemoglobin Sodium Potassium Chloride Carbon Dioxide BUN 37 H Creatinine Glucose 256 H POC Glucose 264 H 236 H Uric Acid Calcium Phosphorus Magnesium Iron TIBC AST ALT Total Creatine Kinase CK-MB (CK-2) Troponin T NT-Pro-B Natriuret Pep Total Protein Albumin Triglycerides HDL Cholesterol Folate Urine WBC (Auto) Urine Creatinine Urine Total Protein Vancomycin Trough 06/14/19 06/14/19 06/14/19 05:26 12:31 18:32 WBC RBC Hgb Hct MCV MCH MCHC RDW Plt Count Lymph % (Auto) [place] % (Auto) Eos % (Auto) Lymph # [place] # Eos # Seg Neutrophils % Seg Neuts % (Manual) Lymphocytes % (Manual) Monocytes % (Manual) Eosinophils % (Manual) Nucleated RBC % Seg Neutrophils # Seg Neutrophils # Man Lymphocytes # (Manual) Monocytes # (Manual) Eosinophils # (Manual) PT INR APTT Fibrinogen POC ABG pH ABG pH POC ABG pCO2 POC ABG pO2 ABG pO2 ABG HCO3 ABG O2 Saturation ABG Base Excess ABG Hemoglobin Oxyhemoglobin Sodium Potassium Chloride Carbon Dioxide BUN Creatinine Glucose POC Glucose 239 H 116 H 247 H Uric Acid Calcium Phosphorus Magnesium Iron TIBC AST ALT Total Creatine Kinase CK-MB (CK-2) Troponin T NT-Pro-B Natriuret Pep Total Protein Albumin Triglycerides HDL Cholesterol Folate Urine WBC (Auto) Urine Creatinine Urine Total Protein Vancomycin Trough 06/14/19 06/15/19 06/15/19 23:57 04:05 05:55 WBC RBC Hgb Hct MCV MCH MCHC RDW Plt Count Lymph % (Auto) [place] % (Auto) Eos % (Auto) Lymph # [place] # Eos # Seg Neutrophils % Seg Neuts % (Manual) Lymphocytes % (Manual) Monocytes % (Manual) Eosinophils % (Manual) Nucleated RBC % Seg Neutrophils # Seg Neutrophils # Man Lymphocytes # (Manual) Monocytes # (Manual) Eosinophils # (Manual) PT INR APTT Fibrinogen POC ABG pH ABG pH POC ABG pCO2 POC ABG pO2 ABG pO2 ABG HCO3 ABG O2 Saturation ABG Base Excess ABG Hemoglobin Oxyhemoglobin Sodium Potassium Chloride Carbon Dioxide BUN 46 H Creatinine 0.7 L Glucose 265 H POC Glucose 206 H 265 H Uric Acid Calcium Phosphorus Magnesium Iron TIBC AST ALT Total Creatine Kinase CK-MB (CK-2) Troponin T NT-Pro-B Natriuret Pep Total Protein Albumin Triglycerides HDL Cholesterol Folate Urine WBC (Auto) Urine Creatinine Urine Total Protein Vancomycin Trough 06/15/19 06/15/19 06/15/19 12:08 18:45 23:41 WBC RBC Hgb Hct MCV MCH MCHC RDW Plt Count Lymph % (Auto) [place] % (Auto) Eos % (Auto) Lymph # [place] # Eos # Seg Neutrophils % Seg Neuts % (Manual) Lymphocytes % (Manual) Monocytes % (Manual) Eosinophils % (Manual) Nucleated RBC % Seg Neutrophils # Seg Neutrophils # Man Lymphocytes # (Manual) Monocytes # (Manual) Eosinophils # (Manual) PT INR APTT Fibrinogen POC ABG pH ABG pH POC ABG pCO2 POC ABG pO2 ABG pO2 ABG HCO3 ABG O2 Saturation ABG Base Excess ABG Hemoglobin Oxyhemoglobin Sodium Potassium Chloride Carbon Dioxide BUN Creatinine Glucose POC Glucose 224 H 177 H 193 H Uric Acid Calcium Phosphorus Magnesium Iron TIBC AST ALT Total Creatine Kinase CK-MB (CK-2) Troponin T NT-Pro-B Natriuret Pep Total Protein Albumin Triglycerides HDL Cholesterol Folate Urine WBC (Auto) Urine Creatinine Urine Total Protein Vancomycin Trough 06/16/19 06/16/19 06/16/19 05:00 05:00 05:40 WBC 11.9 H RBC 3.24 L Hgb 9.0 L Hct 29.0 L MCV MCH MCHC 31 L RDW 18.6 H Plt Count 111 L Lymph % (Auto) [place] % (Auto) Eos % (Auto) Lymph # [place] # Eos # Seg Neutrophils % Seg Neuts % (Manual) 92.0 H Lymphocytes % (Manual) 2.0 L Monocytes % (Manual) Eosinophils % (Manual) Nucleated RBC % Seg Neutrophils # Seg Neutrophils # Man 10.9 H Lymphocytes # (Manual) 0.2 L Monocytes # (Manual) Eosinophils # (Manual) PT INR APTT Fibrinogen POC ABG pH ABG pH POC ABG pCO2 POC ABG pO2 ABG pO2 ABG HCO3 ABG O2 Saturation ABG Base Excess ABG Hemoglobin Oxyhemoglobin Sodium Potassium Chloride Carbon Dioxide 33 H BUN 49 H Creatinine 0.7 L Glucose 264 H POC Glucose 247 H Uric Acid Calcium Phosphorus Magnesium Iron TIBC AST ALT Total Creatine Kinase CK-MB (CK-2) Troponin T NT-Pro-B Natriuret Pep Total Protein Albumin Triglycerides HDL Cholesterol Folate Urine WBC (Auto) Urine Creatinine Urine Total Protein Vancomycin Trough 06/16/19 06/16/19 06/16/19 12:03 17:11 18:11 WBC RBC Hgb Hct MCV MCH MCHC RDW Plt Count Lymph % (Auto) [place] % (Auto) Eos % (Auto) Lymph # [place] # Eos # Seg Neutrophils % Seg Neuts % (Manual) Lymphocytes % (Manual) Monocytes % (Manual) Eosinophils % (Manual) Nucleated RBC % Seg Neutrophils # Seg Neutrophils # Man Lymphocytes # (Manual) Monocytes # (Manual) Eosinophils # (Manual) PT INR APTT Fibrinogen POC ABG pH ABG pH 7.289 L POC ABG pCO2 POC ABG pO2 ABG pO2 399.3 H ABG HCO3 30.1 H ABG O2 Saturation 99.6 H ABG Base Excess ABG Hemoglobin 8.6 L Oxyhemoglobin Sodium Potassium Chloride Carbon Dioxide BUN Creatinine Glucose POC Glucose 252 H 254 H Uric Acid Calcium Phosphorus Magnesium Iron TIBC AST ALT Total Creatine Kinase CK-MB (CK-2) Troponin T NT-Pro-B Natriuret Pep Total Protein Albumin Triglycerides HDL Cholesterol Folate Urine WBC (Auto) Urine Creatinine Urine Total Protein Vancomycin Trough 06/16/19 06/17/19 06/17/19 23:16 05:30 05:53 WBC RBC Hgb Hct MCV MCH MCHC RDW Plt Count Lymph % (Auto) [place] % (Auto) Eos % (Auto) Lymph # [place] # Eos # Seg Neutrophils % Seg Neuts % (Manual) Lymphocytes % (Manual) Monocytes % (Manual) Eosinophils % (Manual) Nucleated RBC % Seg Neutrophils # Seg Neutrophils # Man Lymphocytes # (Manual) Monocytes # (Manual) Eosinophils # (Manual) PT INR APTT Fibrinogen POC ABG pH ABG pH POC ABG pCO2 POC ABG pO2 ABG pO2 ABG HCO3 ABG O2 Saturation ABG Base Excess ABG Hemoglobin Oxyhemoglobin Sodium 147 H Potassium Chloride Carbon Dioxide 32 H BUN 60 H Creatinine Glucose 205 H POC Glucose 238 H 211 H Uric Acid Calcium Phosphorus Magnesium Iron TIBC AST ALT Total Creatine Kinase CK-MB (CK-2) Troponin T NT-Pro-B Natriuret Pep Total Protein Albumin Triglycerides HDL Cholesterol Folate Urine WBC (Auto) Urine Creatinine Urine Total Protein Vancomycin Trough 06/17/19 06/17/19 06/17/19 09:50 12:27 12:45 WBC RBC 2.79 L Hgb 8.2 L Hct 24.6 L MCV MCH MCHC RDW 18.5 H Plt Count 95 L Lymph % (Auto) [place] % (Auto) Eos % (Auto) Lymph # [place] # Eos # Seg Neutrophils % Seg Neuts % (Manual) Lymphocytes % (Manual) Monocytes % (Manual) Eosinophils % (Manual) Nucleated RBC % Seg Neutrophils # Seg Neutrophils # Man Lymphocytes # (Manual) Monocytes # (Manual) Eosinophils # (Manual) PT INR APTT Fibrinogen 194 L POC ABG pH ABG pH POC ABG pCO2 POC ABG pO2 ABG pO2 ABG HCO3 ABG O2 Saturation ABG Base Excess ABG Hemoglobin Oxyhemoglobin Sodium Potassium Chloride Carbon Dioxide BUN Creatinine Glucose POC Glucose 224 H Uric Acid Calcium Phosphorus Magnesium Iron TIBC AST ALT Total Creatine Kinase CK-MB (CK-2) Troponin T NT-Pro-B Natriuret Pep Total Protein Albumin Triglycerides HDL Cholesterol Folate Urine WBC (Auto) Urine Creatinine Urine Total Protein Vancomycin Trough 06/17/19 06/17/19 06/17/19 18:41 22:00 23:23 WBC RBC Hgb Hct MCV MCH MCHC RDW Plt Count Lymph % (Auto) [place] % (Auto) Eos % (Auto) Lymph # [place] # Eos # Seg Neutrophils % Seg Neuts % (Manual) Lymphocytes % (Manual) Monocytes % (Manual) Eosinophils % (Manual) Nucleated RBC % Seg Neutrophils # Seg Neutrophils # Man Lymphocytes # (Manual) Monocytes # (Manual) Eosinophils # (Manual) PT INR APTT Fibrinogen POC ABG pH ABG pH POC ABG pCO2 POC ABG pO2 ABG pO2 ABG HCO3 ABG O2 Saturation ABG Base Excess ABG Hemoglobin Oxyhemoglobin Sodium Potassium Chloride Carbon Dioxide BUN Creatinine Glucose POC Glucose 198 H 166 H 171 H Uric Acid Calcium Phosphorus Magnesium Iron TIBC AST ALT Total Creatine Kinase CK-MB (CK-2) Troponin T NT-Pro-B Natriuret Pep Total Protein Albumin Triglycerides HDL Cholesterol Folate Urine WBC (Auto) Urine Creatinine Urine Total Protein Vancomycin Trough 06/17/19 06/18/19 06/18/19 Unknown 03:50 04:25 WBC RBC Hgb Hct MCV MCH MCHC RDW Plt Count Lymph % (Auto) [place] % (Auto) Eos % (Auto) Lymph # [place] # Eos # Seg Neutrophils % Seg Neuts % (Manual) Lymphocytes % (Manual) Monocytes % (Manual) Eosinophils % (Manual) Nucleated RBC % Seg Neutrophils # Seg Neutrophils # Man Lymphocytes # (Manual) Monocytes # (Manual) Eosinophils # (Manual) PT INR APTT Fibrinogen POC ABG pH ABG pH 7.564 H 7.499 H POC ABG pCO2 POC ABG pO2 ABG pO2 238.6 H 130.8 H ABG HCO3 33.6 H 32.5 H ABG O2 Saturation 99.4 H ABG Base Excess 10.6 H 8.5 H ABG Hemoglobin 7.9 L 8.8 L Oxyhemoglobin Sodium 151 H Potassium 3.4 L Chloride Carbon Dioxide BUN 66 H Creatinine Glucose 189 H POC Glucose Uric Acid Calcium Phosphorus Magnesium Iron TIBC AST ALT Total Creatine Kinase CK-MB (CK-2) Troponin T NT-Pro-B Natriuret Pep Total Protein Albumin Triglycerides HDL Cholesterol Folate Urine WBC (Auto) Urine Creatinine Urine Total Protein Vancomycin Trough 06/18/19 06/18/19 06/18/19 05:25 05:27 11:50 WBC RBC 2.61 L Hgb 7.4 L Hct 22.9 L MCV MCH MCHC RDW 19.9 H Plt Count 81 L Lymph % (Auto) 12.9 L [place] % (Auto) 7.7 H Eos % (Auto) Lymph # 1.1 L [place] # Eos # Seg Neutrophils % 77.4 H Seg Neuts % (Manual) Lymphocytes % (Manual) Monocytes % (Manual) Eosinophils % (Manual) Nucleated RBC % Seg Neutrophils # Seg Neutrophils # Man Lymphocytes # (Manual) Monocytes # (Manual) Eosinophils # (Manual) PT INR APTT Fibrinogen POC ABG pH ABG pH POC ABG pCO2 POC ABG pO2 ABG pO2 ABG HCO3 ABG O2 Saturation ABG Base Excess ABG Hemoglobin Oxyhemoglobin Sodium Potassium Chloride Carbon Dioxide BUN Creatinine Glucose POC Glucose 186 H 263 H Uric Acid Calcium Phosphorus Magnesium Iron TIBC AST ALT Total Creatine Kinase CK-MB (CK-2) Troponin T NT-Pro-B Natriuret Pep Total Protein Albumin Triglycerides HDL Cholesterol Folate Urine WBC (Auto) Urine Creatinine Urine Total Protein Vancomycin Trough 06/18/19 06/18/19 06/18/19 18:35 21:31 23:21 WBC RBC Hgb Hct MCV MCH MCHC RDW Plt Count Lymph % (Auto) [place] % (Auto) Eos % (Auto) Lymph # [place] # Eos # Seg Neutrophils % Seg Neuts % (Manual) Lymphocytes % (Manual) Monocytes % (Manual) Eosinophils % (Manual) Nucleated RBC % Seg Neutrophils # Seg Neutrophils # Man Lymphocytes # (Manual) Monocytes # (Manual) Eosinophils # (Manual) PT INR APTT Fibrinogen POC ABG pH ABG pH POC ABG pCO2 POC ABG pO2 ABG pO2 ABG HCO3 ABG O2 Saturation ABG Base Excess ABG Hemoglobin Oxyhemoglobin Sodium Potassium Chloride Carbon Dioxide BUN Creatinine Glucose POC Glucose 154 H 186 H 202 H Uric Acid Calcium Phosphorus Magnesium Iron TIBC AST ALT Total Creatine Kinase CK-MB (CK-2) Troponin T NT-Pro-B Natriuret Pep Total Protein Albumin Triglycerides HDL Cholesterol Folate Urine WBC (Auto) Urine Creatinine Urine Total Protein Vancomycin Trough 06/19/19 06/19/19 06/19/19 03:18 04:30 04:30 WBC RBC 2.65 L Hgb 7.5 L Hct 23.1 L MCV MCH MCHC RDW 19.4 H Plt Count 74 L Lymph % (Auto) 8.8 L [place] % (Auto) 9.4 H Eos % (Auto) 4.7 H Lymph # 0.6 L [place] # Eos # Seg Neutrophils % 76.6 H Seg Neuts % (Manual) Lymphocytes % (Manual) Monocytes % (Manual) Eosinophils % (Manual) Nucleated RBC % Seg Neutrophils # Seg Neutrophils # Man Lymphocytes # (Manual) Monocytes # (Manual) Eosinophils # (Manual) PT INR APTT Fibrinogen POC ABG pH ABG pH 7.452 H POC ABG pCO2 POC ABG pO2 ABG pO2 105.5 H ABG HCO3 32.3 H ABG O2 Saturation ABG Base Excess 7.6 H ABG Hemoglobin 6.9 L Oxyhemoglobin Sodium 150 H Potassium 3.3 L Chloride Carbon Dioxide 31 H BUN 56 H Creatinine Glucose 197 H POC Glucose Uric Acid Calcium Phosphorus Magnesium Iron TIBC AST ALT Total Creatine Kinase CK-MB (CK-2) Troponin T NT-Pro-B Natriuret Pep Total Protein Albumin Triglycerides 210 H HDL Cholesterol Folate Urine WBC (Auto) Urine Creatinine Urine Total Protein Vancomycin Trough 06/19/19 06/19/19 06/19/19 05:24 12:18 18:55 WBC RBC Hgb Hct MCV MCH MCHC RDW Plt Count Lymph % (Auto) [place] % (Auto) Eos % (Auto) Lymph # [place] # Eos # Seg Neutrophils % Seg Neuts % (Manual) Lymphocytes % (Manual) Monocytes % (Manual) Eosinophils % (Manual) Nucleated RBC % Seg Neutrophils # Seg Neutrophils # Man Lymphocytes # (Manual) Monocytes # (Manual) Eosinophils # (Manual) PT INR APTT Fibrinogen POC ABG pH ABG pH POC ABG pCO2 POC ABG pO2 ABG pO2 ABG HCO3 ABG O2 Saturation ABG Base Excess ABG Hemoglobin Oxyhemoglobin Sodium Potassium Chloride Carbon Dioxide BUN Creatinine Glucose POC Glucose 176 H 260 H 192 H Uric Acid Calcium Phosphorus Magnesium Iron TIBC AST ALT Total Creatine Kinase CK-MB (CK-2) Troponin T NT-Pro-B Natriuret Pep Total Protein Albumin Triglycerides HDL Cholesterol Folate Urine WBC (Auto) Urine Creatinine Urine Total Protein Vancomycin Trough 06/19/19 06/19/19 06/20/19 22:57 23:46 04:40 WBC RBC 2.79 L Hgb 7.9 L Hct 24.3 L MCV MCH MCHC RDW 19.6 H Plt Count 92 L Lymph % (Auto) 9.2 L [place] % (Auto) 12.0 H Eos % (Auto) 5.2 H Lymph # 0.9 L [place] # 1.2 H Eos # 0.5 H Seg Neutrophils % 73.3 H Seg Neuts % (Manual) Lymphocytes % (Manual) Monocytes % (Manual) Eosinophils % (Manual) Nucleated RBC % Seg Neutrophils # Seg Neutrophils # Man Lymphocytes # (Manual) Monocytes # (Manual) Eosinophils # (Manual) PT INR APTT Fibrinogen POC ABG pH ABG pH POC ABG pCO2 POC ABG pO2 ABG pO2 ABG HCO3 ABG O2 Saturation ABG Base Excess ABG Hemoglobin Oxyhemoglobin Sodium Potassium Chloride Carbon Dioxide BUN Creatinine Glucose POC Glucose 145 H 216 H Uric Acid Calcium Phosphorus Magnesium Iron TIBC AST ALT Total Creatine Kinase CK-MB (CK-2) Troponin T NT-Pro-B Natriuret Pep Total Protein Albumin Triglycerides HDL Cholesterol Folate Urine WBC (Auto) Urine Creatinine Urine Total Protein Vancomycin Trough 06/20/19 06/20/19 06/20/19 04:40 05:40 05:54 WBC RBC Hgb Hct MCV MCH MCHC RDW Plt Count Lymph % (Auto) [place] % (Auto) Eos % (Auto) Lymph # [place] # Eos # Seg Neutrophils % Seg Neuts % (Manual) Lymphocytes % (Manual) Monocytes % (Manual) Eosinophils % (Manual) Nucleated RBC % Seg Neutrophils # Seg Neutrophils # Man Lymphocytes # (Manual) Monocytes # (Manual) Eosinophils # (Manual) PT INR APTT Fibrinogen POC ABG pH ABG pH 7.455 H POC ABG pCO2 POC ABG pO2 ABG pO2 60.9 L ABG HCO3 30.3 H ABG O2 Saturation 92.3 L ABG Base Excess 5.8 H ABG Hemoglobin 8.2 L Oxyhemoglobin 90.1 L Sodium Potassium 3.5 L Chloride Carbon Dioxide BUN 59 H Creatinine Glucose 200 H POC Glucose 190 H Uric Acid Calcium Phosphorus Magnesium 1.60 L Iron TIBC AST ALT Total Creatine Kinase CK-MB (CK-2) Troponin T NT-Pro-B Natriuret Pep Total Protein Albumin Triglycerides HDL Cholesterol Folate Urine WBC (Auto) Urine Creatinine Urine Total Protein Vancomycin Trough 06/20/19 06/20/19 06/20/19 09:12 09:12 12:24 WBC RBC Hgb Hct MCV MCH MCHC RDW Plt Count Lymph % (Auto) [place] % (Auto) Eos % (Auto) Lymph # [place] # Eos # Seg Neutrophils % Seg Neuts % (Manual) Lymphocytes % (Manual) Monocytes % (Manual) Eosinophils % (Manual) Nucleated RBC % Seg Neutrophils # Seg Neutrophils # Man Lymphocytes # (Manual) Monocytes # (Manual) Eosinophils # (Manual) PT INR APTT Fibrinogen POC ABG pH ABG pH POC ABG pCO2 POC ABG pO2 ABG pO2 ABG HCO3 ABG O2 Saturation ABG Base Excess ABG Hemoglobin Oxyhemoglobin Sodium Potassium Chloride Carbon Dioxide BUN Creatinine Glucose POC Glucose 225 H Uric Acid Calcium Phosphorus Magnesium Iron 45 L TIBC 110 L AST ALT Total Creatine Kinase CK-MB (CK-2) Troponin T NT-Pro-B Natriuret Pep Total Protein Albumin Triglycerides HDL Cholesterol Folate 7.01 L Urine WBC (Auto) Urine Creatinine Urine Total Protein Vancomycin Trough 06/20/19 06/20/19 06/20/19 17:42 21:55 23:24 WBC RBC Hgb Hct MCV MCH MCHC RDW Plt Count Lymph % (Auto) [place] % (Auto) Eos % (Auto) Lymph # [place] # Eos # Seg Neutrophils % Seg Neuts % (Manual) Lymphocytes % (Manual) Monocytes % (Manual) Eosinophils % (Manual) Nucleated RBC % Seg Neutrophils # Seg Neutrophils # Man Lymphocytes # (Manual) Monocytes # (Manual) Eosinophils # (Manual) PT INR APTT Fibrinogen POC ABG pH ABG pH POC ABG pCO2 POC ABG pO2 ABG pO2 ABG HCO3 ABG O2 Saturation ABG Base Excess ABG Hemoglobin Oxyhemoglobin Sodium Potassium Chloride Carbon Dioxide BUN Creatinine Glucose POC Glucose 255 H 218 H 215 H Uric Acid Calcium Phosphorus Magnesium Iron TIBC AST ALT Total Creatine Kinase CK-MB (CK-2) Troponin T NT-Pro-B Natriuret Pep Total Protein Albumin Triglycerides HDL Cholesterol Folate Urine WBC (Auto) Urine Creatinine Urine Total Protein Vancomycin Trough 06/21/19 06/21/19 06/21/19 03:32 03:40 05:20 WBC 12.8 H RBC 3.03 L Hgb 8.5 L Hct 26.2 L MCV MCH MCHC RDW 19.4 H Plt Count 131 L Lymph % (Auto) [place] % (Auto) Eos % (Auto) Lymph # [place] # Eos # Seg Neutrophils % Seg Neuts % (Manual) 78.0 H Lymphocytes % (Manual) 5.0 L Monocytes % (Manual) 11.0 H Eosinophils % (Manual) Nucleated RBC % Seg Neutrophils # Seg Neutrophils # Man 10.0 H Lymphocytes # (Manual) 0.6 L Monocytes # (Manual) 1.4 H Eosinophils # (Manual) 0.5 H PT INR APTT Fibrinogen POC ABG pH ABG pH 7.476 H POC ABG pCO2 POC ABG pO2 ABG pO2 162.0 H ABG HCO3 26.8 H ABG O2 Saturation 99.1 H ABG Base Excess 3.1 H ABG Hemoglobin 8.6 L Oxyhemoglobin Sodium Potassium Chloride Carbon Dioxide BUN Creatinine Glucose POC Glucose 202 H Uric Acid Calcium Phosphorus Magnesium Iron TIBC AST ALT Total Creatine Kinase CK-MB (CK-2) Troponin T NT-Pro-B Natriuret Pep Total Protein Albumin Triglycerides HDL Cholesterol Folate Urine WBC (Auto) Urine Creatinine Urine Total Protein Vancomycin Trough 06/21/19 06/21/19 06/21/19 05:20 12:30 18:18 WBC RBC Hgb Hct MCV MCH MCHC RDW Plt Count Lymph % (Auto) [place] % (Auto) Eos % (Auto) Lymph # [place] # Eos # Seg Neutrophils % Seg Neuts % (Manual) Lymphocytes % (Manual) Monocytes % (Manual) Eosinophils % (Manual) Nucleated RBC % Seg Neutrophils # Seg Neutrophils # Man Lymphocytes # (Manual) Monocytes # (Manual) Eosinophils # (Manual) PT INR APTT Fibrinogen POC ABG pH ABG pH POC ABG pCO2 POC ABG pO2 ABG pO2 ABG HCO3 ABG O2 Saturation ABG Base Excess ABG Hemoglobin Oxyhemoglobin Sodium Potassium Chloride 97.7 L Carbon Dioxide BUN 69 H Creatinine Glucose 239 H POC Glucose 176 H 187 H Uric Acid Calcium Phosphorus Magnesium 2.40 H Iron TIBC AST ALT Total Creatine Kinase CK-MB (CK-2) Troponin T NT-Pro-B Natriuret Pep Total Protein Albumin Triglycerides HDL Cholesterol Folate Urine WBC (Auto) Urine Creatinine Urine Total Protein Vancomycin Trough 06/22/19 06/22/19 06/22/19 04:11 05:30 05:30 WBC 12.6 H RBC 3.10 L Hgb 8.7 L Hct 27.0 L MCV MCH MCHC RDW 19.8 H Plt Count Lymph % (Auto) [place] % (Auto) Eos % (Auto) Lymph # [place] # Eos # Seg Neutrophils % Seg Neuts % (Manual) Lymphocytes % (Manual) Monocytes % (Manual) 10.0 H Eosinophils % (Manual) Nucleated RBC % Seg Neutrophils # Seg Neutrophils # Man 8.7 H Lymphocytes # (Manual) Monocytes # (Manual) 1.3 H Eosinophils # (Manual) PT INR APTT Fibrinogen POC ABG pH ABG pH POC ABG pCO2 POC ABG pO2 ABG pO2 ABG HCO3 27.7 H ABG O2 Saturation ABG Base Excess 3.3 H ABG Hemoglobin 8.5 L Oxyhemoglobin 94.9 L Sodium Potassium Chloride Carbon Dioxide BUN 66 H Creatinine Glucose 103 H POC Glucose Uric Acid Calcium Phosphorus Magnesium Iron TIBC AST ALT Total Creatine Kinase CK-MB (CK-2) Troponin T NT-Pro-B Natriuret Pep Total Protein Albumin Triglycerides HDL Cholesterol Folate Urine WBC (Auto) Urine Creatinine Urine Total Protein Vancomycin Trough 06/22/19 06/22/19 06/23/19 17:43 23:25 02:00 WBC RBC Hgb Hct MCV MCH MCHC RDW Plt Count Lymph % (Auto) [place] % (Auto) Eos % (Auto) Lymph # [place] # Eos # Seg Neutrophils % Seg Neuts % (Manual) Lymphocytes % (Manual) Monocytes % (Manual) Eosinophils % (Manual) Nucleated RBC % Seg Neutrophils # Seg Neutrophils # Man Lymphocytes # (Manual) Monocytes # (Manual) Eosinophils # (Manual) PT INR APTT Fibrinogen POC ABG pH ABG pH 7.469 H POC ABG pCO2 POC ABG pO2 ABG pO2 58.7 L ABG HCO3 28.0 H ABG O2 Saturation 94.6 L ABG Base Excess 4.0 H ABG Hemoglobin 7.1 L Oxyhemoglobin 92.2 L Sodium Potassium Chloride Carbon Dioxide BUN Creatinine Glucose POC Glucose 143 H 106 H Uric Acid Calcium Phosphorus Magnesium Iron TIBC AST ALT Total Creatine Kinase CK-MB (CK-2) Troponin T NT-Pro-B Natriuret Pep Total Protein Albumin Triglycerides HDL Cholesterol Folate Urine WBC (Auto) Urine Creatinine Urine Total Protein Vancomycin Trough 06/23/19 06/23/19 06/23/19 05:24 05:24 11:43 WBC 12.6 H RBC 2.96 L Hgb 8.3 L Hct 25.5 L MCV MCH MCHC RDW 20.2 H Plt Count Lymph % (Auto) [place] % (Auto) Eos % (Auto) Lymph # [place] # Eos # Seg Neutrophils % Seg Neuts % (Manual) Lymphocytes % (Manual) 12.0 L Monocytes % (Manual) 11.0 H Eosinophils % (Manual) 6.0 H Nucleated RBC % Seg Neutrophils # Seg Neutrophils # Man 8.8 H Lymphocytes # (Manual) Monocytes # (Manual) 1.4 H Eosinophils # (Manual) 0.8 H PT INR APTT Fibrinogen POC ABG pH ABG pH POC ABG pCO2 POC ABG pO2 ABG pO2 ABG HCO3 ABG O2 Saturation ABG Base Excess ABG Hemoglobin Oxyhemoglobin Sodium 146 H Potassium 3.5 L Chloride Carbon Dioxide BUN 48 H Creatinine Glucose 123 H POC Glucose 120 H Uric Acid Calcium Phosphorus Magnesium Iron TIBC AST ALT Total Creatine Kinase CK-MB (CK-2) Troponin T NT-Pro-B Natriuret Pep Total Protein Albumin Triglycerides HDL Cholesterol Folate Urine WBC (Auto) Urine Creatinine Urine Total Protein Vancomycin Trough 06/23/19 06/24/19 06/24/19 17:39 06:53 06:53 WBC 12.3 H RBC 2.87 L Hgb 8.0 L Hct 24.9 L MCV MCH MCHC RDW 20.5 H Plt Count Lymph % (Auto) [place] % (Auto) 8.8 H Eos % (Auto) 4.4 H Lymph # [place] # 1.1 H Eos # 0.5 H Seg Neutrophils % Seg Neuts % (Manual) Lymphocytes % (Manual) Monocytes % (Manual) Eosinophils % (Manual) Nucleated RBC % Seg Neutrophils # Seg Neutrophils # Man Lymphocytes # (Manual) Monocytes # (Manual) Eosinophils # (Manual) PT INR APTT Fibrinogen POC ABG pH ABG pH POC ABG pCO2 POC ABG pO2 ABG pO2 ABG HCO3 ABG O2 Saturation ABG Base Excess ABG Hemoglobin Oxyhemoglobin Sodium Potassium Chloride 107.1 H Carbon Dioxide 21 L BUN 29 H Creatinine 0.6 L Glucose 117 H POC Glucose 111 H Uric Acid Calcium Phosphorus Magnesium 1.60 L Iron TIBC AST ALT Total Creatine Kinase CK-MB (CK-2) Troponin T NT-Pro-B Natriuret Pep Total Protein Albumin Triglycerides HDL Cholesterol Folate Urine WBC (Auto) Urine Creatinine Urine Total Protein Vancomycin Trough 06/24/19 06/24/19 06/24/19 12:12 18:01 23:20 WBC RBC Hgb Hct MCV MCH MCHC RDW Plt Count Lymph % (Auto) [place] % (Auto) Eos % (Auto) Lymph # [place] # Eos # Seg Neutrophils % Seg Neuts % (Manual) Lymphocytes % (Manual) Monocytes % (Manual) Eosinophils % (Manual) Nucleated RBC % Seg Neutrophils # Seg Neutrophils # Man Lymphocytes # (Manual) Monocytes # (Manual) Eosinophils # (Manual) PT INR APTT Fibrinogen POC ABG pH ABG pH POC ABG pCO2 POC ABG pO2 ABG pO2 ABG HCO3 ABG O2 Saturation ABG Base Excess ABG Hemoglobin Oxyhemoglobin Sodium Potassium Chloride Carbon Dioxide BUN Creatinine Glucose POC Glucose 158 H 133 H 106 H Uric Acid Calcium Phosphorus Magnesium Iron TIBC AST ALT Total Creatine Kinase CK-MB (CK-2) Troponin T NT-Pro-B Natriuret Pep Total Protein Albumin Triglycerides HDL Cholesterol Folate Urine WBC (Auto) Urine Creatinine Urine Total Protein Vancomycin Trough 06/25/19 06/25/19 06/25/19 04:46 04:46 05:36 WBC 12.3 H RBC 2.98 L Hgb 8.3 L Hct 26.4 L MCV MCH MCHC 31 L RDW 20.1 H Plt Count Lymph % (Auto) [place] % (Auto) Eos % (Auto) Lymph # [place] # Eos # Seg Neutrophils % Seg Neuts % (Manual) Lymphocytes % (Manual) Monocytes % (Manual) 10.0 H Eosinophils % (Manual) Nucleated RBC % Seg Neutrophils # Seg Neutrophils # Man 8.1 H Lymphocytes # (Manual) Monocytes # (Manual) 1.2 H Eosinophils # (Manual) PT INR APTT Fibrinogen POC ABG pH ABG pH POC ABG pCO2 POC ABG pO2 ABG pO2 ABG HCO3 ABG O2 Saturation ABG Base Excess ABG Hemoglobin Oxyhemoglobin Sodium 148 H Potassium Chloride 108.0 H Carbon Dioxide BUN 21 H Creatinine 0.7 L Glucose 120 H POC Glucose 121 H Uric Acid Calcium Phosphorus Magnesium Iron TIBC AST ALT Total Creatine Kinase CK-MB (CK-2) Troponin T NT-Pro-B Natriuret Pep Total Protein Albumin Triglycerides HDL Cholesterol Folate Urine WBC (Auto) Urine Creatinine Urine Total Protein Vancomycin Trough 06/25/19 06/25/19 06/26/19 14:02 18:30 00:01 WBC RBC Hgb Hct MCV MCH MCHC RDW Plt Count Lymph % (Auto) [place] % (Auto) Eos % (Auto) Lymph # [place] # Eos # Seg Neutrophils % Seg Neuts % (Manual) Lymphocytes % (Manual) Monocytes % (Manual) Eosinophils % (Manual) Nucleated RBC % Seg Neutrophils # Seg Neutrophils # Man Lymphocytes # (Manual) Monocytes # (Manual) Eosinophils # (Manual) PT INR APTT Fibrinogen POC ABG pH ABG pH POC ABG pCO2 POC ABG pO2 ABG pO2 ABG HCO3 ABG O2 Saturation ABG Base Excess ABG Hemoglobin Oxyhemoglobin Sodium Potassium Chloride Carbon Dioxide BUN Creatinine Glucose POC Glucose 125 H 145 H 142 H Uric Acid Calcium Phosphorus Magnesium Iron TIBC AST ALT Total Creatine Kinase CK-MB (CK-2) Troponin T NT-Pro-B Natriuret Pep Total Protein Albumin Triglycerides HDL Cholesterol Folate Urine WBC (Auto) Urine Creatinine Urine Total Protein Vancomycin Trough 06/26/19 06/26/19 06/26/19 04:43 04:43 05:41 WBC RBC 3.02 L Hgb 8.6 L Hct 27.0 L MCV MCH MCHC RDW 20.4 H Plt Count Lymph % (Auto) [place] % (Auto) Eos % (Auto) Lymph # [place] # Eos # Seg Neutrophils % Seg Neuts % (Manual) Lymphocytes % (Manual) Monocytes % (Manual) 9.0 H Eosinophils % (Manual) Nucleated RBC % Seg Neutrophils # Seg Neutrophils # Man Lymphocytes # (Manual) Monocytes # (Manual) 1.0 H Eosinophils # (Manual) PT INR APTT Fibrinogen POC ABG pH ABG pH POC ABG pCO2 POC ABG pO2 ABG pO2 ABG HCO3 ABG O2 Saturation ABG Base Excess ABG Hemoglobin Oxyhemoglobin Sodium Potassium Chloride Carbon Dioxide BUN Creatinine 0.7 L Glucose 111 H POC Glucose 110 H Uric Acid Calcium Phosphorus Magnesium 1.60 L Iron TIBC AST ALT Total Creatine Kinase CK-MB (CK-2) Troponin T NT-Pro-B Natriuret Pep Total Protein Albumin Triglycerides HDL Cholesterol Folate Urine WBC (Auto) Urine Creatinine Urine Total Protein Vancomycin Trough 06/26/19 06/26/19 06/27/19 11:55 18:07 12:10 WBC RBC Hgb Hct MCV MCH MCHC RDW Plt Count Lymph % (Auto) [place] % (Auto) Eos % (Auto) Lymph # [place] # Eos # Seg Neutrophils % Seg Neuts % (Manual) Lymphocytes % (Manual) Monocytes % (Manual) Eosinophils % (Manual) Nucleated RBC % Seg Neutrophils # Seg Neutrophils # Man Lymphocytes # (Manual) Monocytes # (Manual) Eosinophils # (Manual) PT INR APTT Fibrinogen POC ABG pH ABG pH POC ABG pCO2 POC ABG pO2 ABG pO2 ABG HCO3 ABG O2 Saturation ABG Base Excess ABG Hemoglobin Oxyhemoglobin Sodium Potassium Chloride Carbon Dioxide BUN Creatinine Glucose POC Glucose 159 H 107 H 121 H Uric Acid Calcium Phosphorus Magnesium Iron TIBC AST ALT Total Creatine Kinase CK-MB (CK-2) Troponin T NT-Pro-B Natriuret Pep Total Protein Albumin Triglycerides HDL Cholesterol Folate Urine WBC (Auto) Urine Creatinine Urine Total Protein Vancomycin Trough 06/28/19 06/29/19 06/29/19 05:54 13:10 17:58 WBC RBC Hgb Hct MCV MCH MCHC RDW Plt Count Lymph % (Auto) [place] % (Auto) Eos % (Auto) Lymph # [place] # Eos # Seg Neutrophils % Seg Neuts % (Manual) Lymphocytes % (Manual) Monocytes % (Manual) Eosinophils % (Manual) Nucleated RBC % Seg Neutrophils # Seg Neutrophils # Man Lymphocytes # (Manual) Monocytes # (Manual) Eosinophils # (Manual) PT INR APTT Fibrinogen POC ABG pH ABG pH POC ABG pCO2 POC ABG pO2 ABG pO2 ABG HCO3 ABG O2 Saturation ABG Base Excess ABG Hemoglobin Oxyhemoglobin Sodium Potassium Chloride Carbon Dioxide BUN Creatinine Glucose POC Glucose 107 H 115 H 108 H Uric Acid Calcium Phosphorus Magnesium Iron TIBC AST ALT Total Creatine Kinase CK-MB (CK-2) Troponin T NT-Pro-B Natriuret Pep Total Protein Albumin Triglycerides HDL Cholesterol Folate Urine WBC (Auto) Urine Creatinine Urine Total Protein Vancomycin Trough 06/30/19 06/30/19 07/01/19 12:00 18:13 05:49 WBC RBC Hgb Hct MCV MCH MCHC RDW Plt Count Lymph % (Auto) [place] % (Auto) Eos % (Auto) Lymph # [place] # Eos # Seg Neutrophils % Seg Neuts % (Manual) Lymphocytes % (Manual) Monocytes % (Manual) Eosinophils % (Manual) Nucleated RBC % Seg Neutrophils # Seg Neutrophils # Man Lymphocytes # (Manual) Monocytes # (Manual) Eosinophils # (Manual) PT INR APTT Fibrinogen POC ABG pH ABG pH POC ABG pCO2 POC ABG pO2 ABG pO2 ABG HCO3 ABG O2 Saturation ABG Base Excess ABG Hemoglobin Oxyhemoglobin Sodium Potassium Chloride Carbon Dioxide BUN Creatinine Glucose POC Glucose 108 H 114 H 114 H Uric Acid Calcium Phosphorus Magnesium Iron TIBC AST ALT Total Creatine Kinase CK-MB (CK-2) Troponin T NT-Pro-B Natriuret Pep Total Protein Albumin Triglycerides HDL Cholesterol Folate Urine WBC (Auto) Urine Creatinine Urine Total Protein Vancomycin Trough 07/01/19 07/01/19 07/01/19 07:58 07:58 12:06 WBC 11.5 H RBC 3.24 L Hgb 9.0 L Hct 28.4 L MCV MCH MCHC RDW 20.8 H Plt Count Lymph % (Auto) 8.3 L [place] % (Auto) 10.0 H Eos % (Auto) Lymph # 0.9 L [place] # 1.2 H Eos # Seg Neutrophils % 79.4 H Seg Neuts % (Manual) Lymphocytes % (Manual) Monocytes % (Manual) Eosinophils % (Manual) Nucleated RBC % Seg Neutrophils # 9.1 H Seg Neutrophils # Man Lymphocytes # (Manual) Monocytes # (Manual) Eosinophils # (Manual) PT INR APTT Fibrinogen POC ABG pH ABG pH POC ABG pCO2 POC ABG pO2 ABG pO2 ABG HCO3 ABG O2 Saturation ABG Base Excess ABG Hemoglobin Oxyhemoglobin Sodium Potassium Chloride Carbon Dioxide BUN Creatinine 0.4 L Glucose 130 H POC Glucose 133 H Uric Acid Calcium Phosphorus Magnesium Iron TIBC AST ALT Total Creatine Kinase CK-MB (CK-2) Troponin T NT-Pro-B Natriuret Pep Total Protein Albumin Triglycerides HDL Cholesterol Folate Urine WBC (Auto) Urine Creatinine Urine Total Protein Vancomycin Trough 07/02/19 07/02/19 07/02/19 05:54 13:27 13:39 WBC RBC Hgb Hct MCV MCH MCHC RDW Plt Count Lymph % (Auto) [place] % (Auto) Eos % (Auto) Lymph # [place] # Eos # Seg Neutrophils % Seg Neuts % (Manual) Lymphocytes % (Manual) Monocytes % (Manual) Eosinophils % (Manual) Nucleated RBC % Seg Neutrophils # Seg Neutrophils # Man Lymphocytes # (Manual) Monocytes # (Manual) Eosinophils # (Manual) PT INR APTT Fibrinogen POC ABG pH ABG pH POC ABG pCO2 POC ABG pO2 ABG pO2 ABG HCO3 ABG O2 Saturation ABG Base Excess ABG Hemoglobin Oxyhemoglobin Sodium Potassium Chloride Carbon Dioxide BUN Creatinine Glucose POC Glucose 111 H 123 H 116 H Uric Acid Calcium Phosphorus Magnesium Iron TIBC AST ALT Total Creatine Kinase CK-MB (CK-2) Troponin T NT-Pro-B Natriuret Pep Total Protein Albumin Triglycerides HDL Cholesterol Folate Urine WBC (Auto) Urine Creatinine Urine Total Protein Vancomycin Trough 07/02/19 07/03/19 07/04/19 18:00 06:06 12:15 WBC RBC Hgb Hct MCV MCH MCHC RDW Plt Count Lymph % (Auto) [place] % (Auto) Eos % (Auto) Lymph # [place] # Eos # Seg Neutrophils % Seg Neuts % (Manual) Lymphocytes % (Manual) Monocytes % (Manual) Eosinophils % (Manual) Nucleated RBC % Seg Neutrophils # Seg Neutrophils # Man Lymphocytes # (Manual) Monocytes # (Manual) Eosinophils # (Manual) PT INR APTT Fibrinogen POC ABG pH ABG pH POC ABG pCO2 POC ABG pO2 ABG pO2 ABG HCO3 ABG O2 Saturation ABG Base Excess ABG Hemoglobin Oxyhemoglobin Sodium Potassium Chloride Carbon Dioxide BUN Creatinine Glucose POC Glucose 118 H 127 H 122 H Uric Acid Calcium Phosphorus Magnesium Iron TIBC AST ALT Total Creatine Kinase CK-MB (CK-2) Troponin T NT-Pro-B Natriuret Pep Total Protein Albumin Triglycerides HDL Cholesterol Folate Urine WBC (Auto) Urine Creatinine Urine Total Protein Vancomycin Trough 07/04/19 07/04/19 07/05/19 18:09 23:48 06:30 WBC RBC Hgb Hct MCV MCH MCHC RDW Plt Count Lymph % (Auto) [place] % (Auto) Eos % (Auto) Lymph # [place] # Eos # Seg Neutrophils % Seg Neuts % (Manual) Lymphocytes % (Manual) Monocytes % (Manual) Eosinophils % (Manual) Nucleated RBC % Seg Neutrophils # Seg Neutrophils # Man Lymphocytes # (Manual) Monocytes # (Manual) Eosinophils # (Manual) PT INR APTT Fibrinogen POC ABG pH ABG pH POC ABG pCO2 POC ABG pO2 ABG pO2 ABG HCO3 ABG O2 Saturation ABG Base Excess ABG Hemoglobin Oxyhemoglobin Sodium Potassium Chloride Carbon Dioxide BUN Creatinine Glucose POC Glucose 115 H 110 H 106 H Uric Acid Calcium Phosphorus Magnesium Iron TIBC AST ALT Total Creatine Kinase CK-MB (CK-2) Troponin T NT-Pro-B Natriuret Pep Total Protein Albumin Triglycerides HDL Cholesterol Folate Urine WBC (Auto) Urine Creatinine Urine Total Protein Vancomycin Trough 07/05/19 07/05/19 07/05/19 11:55 18:16 23:38 WBC RBC Hgb Hct MCV MCH MCHC RDW Plt Count Lymph % (Auto) [place] % (Auto) Eos % (Auto) Lymph # [place] # Eos # Seg Neutrophils % Seg Neuts % (Manual) Lymphocytes % (Manual) Monocytes % (Manual) Eosinophils % (Manual) Nucleated RBC % Seg Neutrophils # Seg Neutrophils # Man Lymphocytes # (Manual) Monocytes # (Manual) Eosinophils # (Manual) PT INR APTT Fibrinogen POC ABG pH ABG pH POC ABG pCO2 POC ABG pO2 ABG pO2 ABG HCO3 ABG O2 Saturation ABG Base Excess ABG Hemoglobin Oxyhemoglobin Sodium Potassium Chloride Carbon Dioxide BUN Creatinine Glucose POC Glucose 106 H 120 H 114 H Uric Acid Calcium Phosphorus Magnesium Iron TIBC AST ALT Total Creatine Kinase CK-MB (CK-2) Troponin T NT-Pro-B Natriuret Pep Total Protein Albumin Triglycerides HDL Cholesterol Folate Urine WBC (Auto) Urine Creatinine Urine Total Protein Vancomycin Trough 07/06/19 07/06/19 07/06/19 06:01 12:28 18:49 WBC RBC Hgb Hct MCV MCH MCHC RDW Plt Count Lymph % (Auto) [place] % (Auto) Eos % (Auto) Lymph # [place] # Eos # Seg Neutrophils % Seg Neuts % (Manual) Lymphocytes % (Manual) Monocytes % (Manual) Eosinophils % (Manual) Nucleated RBC % Seg Neutrophils # Seg Neutrophils # Man Lymphocytes # (Manual) Monocytes # (Manual) Eosinophils # (Manual) PT INR APTT Fibrinogen POC ABG pH ABG pH POC ABG pCO2 POC ABG pO2 ABG pO2 ABG HCO3 ABG O2 Saturation ABG Base Excess ABG Hemoglobin Oxyhemoglobin Sodium Potassium Chloride Carbon Dioxide BUN Creatinine Glucose POC Glucose 115 H 114 H 111 H Uric Acid Calcium Phosphorus Magnesium Iron TIBC AST ALT Total Creatine Kinase CK-MB (CK-2) Troponin T NT-Pro-B Natriuret Pep Total Protein Albumin Triglycerides HDL Cholesterol Folate Urine WBC (Auto) Urine Creatinine Urine Total Protein Vancomycin Trough 07/07/19 07/07/19 07/07/19 05:34 11:57 23:54 WBC RBC Hgb Hct MCV MCH MCHC RDW Plt Count Lymph % (Auto) [place] % (Auto) Eos % (Auto) Lymph # [place] # Eos # Seg Neutrophils % Seg Neuts % (Manual) Lymphocytes % (Manual) Monocytes % (Manual) Eosinophils % (Manual) Nucleated RBC % Seg Neutrophils # Seg Neutrophils # Man Lymphocytes # (Manual) Monocytes # (Manual) Eosinophils # (Manual) PT INR APTT Fibrinogen POC ABG pH ABG pH POC ABG pCO2 POC ABG pO2 ABG pO2 ABG HCO3 ABG O2 Saturation ABG Base Excess ABG Hemoglobin Oxyhemoglobin Sodium Potassium Chloride Carbon Dioxide BUN Creatinine Glucose POC Glucose 121 H 135 H 109 H Uric Acid Calcium Phosphorus Magnesium Iron TIBC AST ALT Total Creatine Kinase CK-MB (CK-2) Troponin T NT-Pro-B Natriuret Pep Total Protein Albumin Triglycerides HDL Cholesterol Folate Urine WBC (Auto) Urine Creatinine Urine Total Protein Vancomycin Trough 07/08/19 07/08/19 07/09/19 04:00 04:00 12:13 WBC RBC 3.30 L Hgb 9.3 L Hct 29.0 L MCV MCH MCHC RDW 19.9 H Plt Count Lymph % (Auto) [place] % (Auto) Eos % (Auto) Lymph # [place] # Eos # Seg Neutrophils % Seg Neuts % (Manual) 76.0 H Lymphocytes % (Manual) Monocytes % (Manual) Eosinophils % (Manual) Nucleated RBC % Seg Neutrophils # Seg Neutrophils # Man 8.4 H Lymphocytes # (Manual) Monocytes # (Manual) Eosinophils # (Manual) PT INR APTT Fibrinogen POC ABG pH ABG pH POC ABG pCO2 POC ABG pO2 ABG pO2 ABG HCO3 ABG O2 Saturation ABG Base Excess ABG Hemoglobin Oxyhemoglobin Sodium Potassium Chloride Carbon Dioxide BUN Creatinine 0.5 L Glucose 117 H POC Glucose 111 H Uric Acid Calcium Phosphorus Magnesium Iron TIBC AST ALT Total Creatine Kinase CK-MB (CK-2) Troponin T NT-Pro-B Natriuret Pep Total Protein Albumin Triglycerides HDL Cholesterol Folate Urine WBC (Auto) Urine Creatinine Urine Total Protein Vancomycin Trough 07/10/19 07/10/19 07/10/19 05:28 12:22 17:19 WBC RBC Hgb Hct MCV MCH MCHC RDW Plt Count Lymph % (Auto) [place] % (Auto) Eos % (Auto) Lymph # [place] # Eos # Seg Neutrophils % Seg Neuts % (Manual) Lymphocytes % (Manual) Monocytes % (Manual) Eosinophils % (Manual) Nucleated RBC % Seg Neutrophils # Seg Neutrophils # Man Lymphocytes # (Manual) Monocytes # (Manual) Eosinophils # (Manual) PT INR APTT Fibrinogen POC ABG pH ABG pH POC ABG pCO2 POC ABG pO2 ABG pO2 ABG HCO3 ABG O2 Saturation ABG Base Excess ABG Hemoglobin Oxyhemoglobin Sodium Potassium Chloride Carbon Dioxide BUN Creatinine Glucose POC Glucose 114 H 113 H 115 H Uric Acid Calcium Phosphorus Magnesium Iron TIBC AST ALT Total Creatine Kinase CK-MB (CK-2) Troponin T NT-Pro-B Natriuret Pep Total Protein Albumin Triglycerides HDL Cholesterol Folate Urine WBC (Auto) Urine Creatinine Urine Total Protein Vancomycin Trough 07/11/19 07/11/19 07/11/19 05:27 06:08 06:08 WBC 12.6 H RBC 3.26 L Hgb 9.2 L Hct 28.6 L MCV MCH MCHC RDW 19.6 H Plt Count Lymph % (Auto) [place] % (Auto) Eos % (Auto) Lymph # [place] # Eos # Seg Neutrophils % Seg Neuts % (Manual) Lymphocytes % (Manual) Monocytes % (Manual) Eosinophils % (Manual) Nucleated RBC % Seg Neutrophils # Seg Neutrophils # Man Lymphocytes # (Manual) Monocytes # (Manual) Eosinophils # (Manual) PT INR APTT Fibrinogen POC ABG pH ABG pH POC ABG pCO2 POC ABG pO2 ABG pO2 ABG HCO3 ABG O2 Saturation ABG Base Excess ABG Hemoglobin Oxyhemoglobin Sodium Potassium Chloride Carbon Dioxide 17 L D BUN Creatinine Glucose 117 H POC Glucose 114 H Uric Acid Calcium Phosphorus Magnesium Iron TIBC AST ALT Total Creatine Kinase CK-MB (CK-2) Troponin T NT-Pro-B Natriuret Pep Total Protein Albumin Triglycerides HDL Cholesterol Folate Urine WBC (Auto) Urine Creatinine Urine Total Protein Vancomycin Trough 02/07/13/19 07/13/19 18:33 03:55 03:55 WBC 11.4 H RBC 3.18 L Hgb 8.8 L Hct 27.4 L MCV MCH MCHC RDW 19.1 H Plt Count Lymph % (Auto) [place] % (Auto) Eos % (Auto) Lymph # [place] # Eos # Seg Neutrophils % Seg Neuts % (Manual) Lymphocytes % (Manual) Monocytes % (Manual) Eosinophils % (Manual) Nucleated RBC % Seg Neutrophils # Seg Neutrophils # Man Lymphocytes # (Manual) Monocytes # (Manual) Eosinophils # (Manual) PT INR APTT Fibrinogen POC ABG pH ABG pH POC ABG pCO2 POC ABG pO2 ABG pO2 ABG HCO3 ABG O2 Saturation ABG Base Excess ABG Hemoglobin Oxyhemoglobin Sodium Potassium Chloride 97.4 L Carbon Dioxide BUN Creatinine 0.5 L Glucose 121 H POC Glucose 106 H Uric Acid Calcium Phosphorus Magnesium Iron TIBC AST ALT Total Creatine Kinase CK-MB (CK-2) Troponin T NT-Pro-B Natriuret Pep Total Protein Albumin Triglycerides HDL Cholesterol Folate Urine WBC (Auto) Urine Creatinine Urine Total Protein Vancomycin Trough 07/13/19 07/13/19 07/14/19 05:08 11:52 11:50 WBC RBC Hgb Hct MCV MCH MCHC RDW Plt Count Lymph % (Auto) [place] % (Auto) Eos % (Auto) Lymph # [place] # Eos # Seg Neutrophils % Seg Neuts % (Manual) Lymphocytes % (Manual) Monocytes % (Manual) Eosinophils % (Manual) Nucleated RBC % Seg Neutrophils # Seg Neutrophils # Man Lymphocytes # (Manual) Monocytes # (Manual) Eosinophils # (Manual) PT INR APTT Fibrinogen POC ABG pH ABG pH POC ABG pCO2 POC ABG pO2 ABG pO2 ABG HCO3 ABG O2 Saturation ABG Base Excess ABG Hemoglobin Oxyhemoglobin Sodium Potassium Chloride Carbon Dioxide BUN Creatinine Glucose POC Glucose 107 H 120 H 125 H Uric Acid Calcium Phosphorus Magnesium Iron TIBC AST ALT Total Creatine Kinase CK-MB (CK-2) Troponin T NT-Pro-B Natriuret Pep Total Protein Albumin Triglycerides HDL Cholesterol Folate Urine WBC (Auto) Urine Creatinine Urine Total Protein Vancomycin Trough 07/14/19 07/15/19 07/15/19 15:52 00:21 05:50 WBC RBC Hgb Hct MCV MCH MCHC RDW Plt Count Lymph % (Auto) [place] % (Auto) Eos % (Auto) Lymph # [place] # Eos # Seg Neutrophils % Seg Neuts % (Manual) Lymphocytes % (Manual) Monocytes % (Manual) Eosinophils % (Manual) Nucleated RBC % Seg Neutrophils # Seg Neutrophils # Man Lymphocytes # (Manual) Monocytes # (Manual) Eosinophils # (Manual) PT INR APTT Fibrinogen POC ABG pH ABG pH POC ABG pCO2 POC ABG pO2 ABG pO2 ABG HCO3 ABG O2 Saturation ABG Base Excess ABG Hemoglobin Oxyhemoglobin Sodium Potassium Chloride Carbon Dioxide BUN Creatinine Glucose POC Glucose 118 H 108 H 123 H Uric Acid Calcium Phosphorus Magnesium Iron TIBC AST ALT Total Creatine Kinase CK-MB (CK-2) Troponin T NT-Pro-B Natriuret Pep Total Protein Albumin Triglycerides HDL Cholesterol Folate Urine WBC (Auto) Urine Creatinine Urine Total Protein Vancomycin Trough 07/15/19 07/15/19 07/15/19 11:38 16:33 17:36 WBC RBC Hgb Hct MCV MCH MCHC RDW Plt Count Lymph % (Auto) [place] % (Auto) Eos % (Auto) Lymph # [place] # Eos # Seg Neutrophils % Seg Neuts % (Manual) Lymphocytes % (Manual) Monocytes % (Manual) Eosinophils % (Manual) Nucleated RBC % Seg Neutrophils # Seg Neutrophils # Man Lymphocytes # (Manual) Monocytes # (Manual) Eosinophils # (Manual) PT INR APTT Fibrinogen POC ABG pH ABG pH POC ABG pCO2 POC ABG pO2 ABG pO2 ABG HCO3 ABG O2 Saturation ABG Base Excess ABG Hemoglobin Oxyhemoglobin Sodium Potassium Chloride Carbon Dioxide BUN Creatinine Glucose POC Glucose 114 H 115 H 132 H Uric Acid Calcium Phosphorus Magnesium Iron TIBC AST ALT Total Creatine Kinase CK-MB (CK-2) Troponin T NT-Pro-B Natriuret Pep Total Protein Albumin Triglycerides HDL Cholesterol Folate Urine WBC (Auto) Urine Creatinine Urine Total Protein Vancomycin Trough 07/16/19 07/16/19 07/17/19 12:33 18:57 11:53 WBC RBC Hgb Hct MCV MCH MCHC RDW Plt Count Lymph % (Auto) [place] % (Auto) Eos % (Auto) Lymph # [place] # Eos # Seg Neutrophils % Seg Neuts % (Manual) Lymphocytes % (Manual) Monocytes % (Manual) Eosinophils % (Manual) Nucleated RBC % Seg Neutrophils # Seg Neutrophils # Man Lymphocytes # (Manual) Monocytes # (Manual) Eosinophils # (Manual) PT INR APTT Fibrinogen POC ABG pH ABG pH POC ABG pCO2 POC ABG pO2 ABG pO2 ABG HCO3 ABG O2 Saturation ABG Base Excess ABG Hemoglobin Oxyhemoglobin Sodium Potassium Chloride Carbon Dioxide BUN Creatinine Glucose POC Glucose 113 H 65 L 113 H Uric Acid Calcium Phosphorus Magnesium Iron TIBC AST ALT Total Creatine Kinase CK-MB (CK-2) Troponin T NT-Pro-B Natriuret Pep Total Protein Albumin Triglycerides HDL Cholesterol Folate Urine WBC (Auto) Urine Creatinine Urine Total Protein Vancomycin Trough 07/17/19 07/18/19 07/18/19 17:42 06:24 17:03 WBC RBC Hgb Hct MCV MCH MCHC RDW Plt Count Lymph % (Auto) [place] % (Auto) Eos % (Auto) Lymph # [place] # Eos # Seg Neutrophils % Seg Neuts % (Manual) Lymphocytes % (Manual) Monocytes % (Manual) Eosinophils % (Manual) Nucleated RBC % Seg Neutrophils # Seg Neutrophils # Man Lymphocytes # (Manual) Monocytes # (Manual) Eosinophils # (Manual) PT INR APTT Fibrinogen POC ABG pH ABG pH POC ABG pCO2 POC ABG pO2 ABG pO2 ABG HCO3 ABG O2 Saturation ABG Base Excess ABG Hemoglobin Oxyhemoglobin Sodium Potassium Chloride Carbon Dioxide BUN Creatinine Glucose POC Glucose 111 H 107 H 117 H Uric Acid Calcium Phosphorus Magnesium Iron TIBC AST ALT Total Creatine Kinase CK-MB (CK-2) Troponin T NT-Pro-B Natriuret Pep Total Protein Albumin Triglycerides HDL Cholesterol Folate Urine WBC (Auto) Urine Creatinine Urine Total Protein Vancomycin Trough 07/19/19 12:24 WBC RBC Hgb Hct MCV MCH MCHC RDW Plt Count Lymph % (Auto) [place] % (Auto) Eos % (Auto) Lymph # [place] # Eos # Seg Neutrophils % Seg Neuts % (Manual) Lymphocytes % (Manual) Monocytes % (Manual) Eosinophils % (Manual) Nucleated RBC % Seg Neutrophils # Seg Neutrophils # Man Lymphocytes # (Manual) Monocytes # (Manual) Eosinophils # (Manual) PT INR APTT Fibrinogen POC ABG pH ABG pH POC ABG pCO2 POC ABG pO2 ABG pO2 ABG HCO3 ABG O2 Saturation ABG Base Excess ABG Hemoglobin Oxyhemoglobin Sodium Potassium Chloride Carbon Dioxide BUN Creatinine Glucose POC Glucose 110 H Uric Acid Calcium Phosphorus Magnesium Iron TIBC AST ALT Total Creatine Kinase CK-MB (CK-2) Troponin T NT-Pro-B Natriuret Pep Total Protein Albumin Triglycerides HDL Cholesterol Folate Urine WBC (Auto) Urine Creatinine Urine Total Protein Vancomycin Trough
[2019-07-20] MEDS: INSULIN LISPRO 100 UNIT/ML SUB-Q SCH ×3 (05:38→19:41)
[2019-07-20 05:47] LABS: BUN/Creatinine Ratio 18; Blood Urea Nitrogen 9 mg/dL (9-20); Hemolysis Index 23
[2019-07-20 05:50] LABS: Basophils # (Auto) 0.1 K/mm3 (0.0-0.1); Basophils % (Auto) 1.1 % (0.0-1.8); Eosinophils # (Auto) 0.3 K/mm3 (0.0-0.4); Eosinophils % (Auto) 2.8 % (0.0-4.3); Hematocrit 33.9 % (35.5-45.6); Lymphocytes # (Auto) 2.4 K/mm3 (1.2-5.4); Lymphocytes % (Auto) 19.2 % (13.4-35.0); Mean Corpuscular HGB Conc 33 % (32-34); Mean Corpuscular Volume 88 fl (84-94); Monocytes # (Auto) 0.8 K/mm3 (0.0-0.8); Monocytes % (Auto) 6.1 % (0.0-7.3); Red Blood Count 3.87 M/mm3 (3.65-5.03); Red Cell Distribution Width 19.6 % (13.2-15.2)
[2019-07-20 05:52] LABS: Platelet Count 385 K/mm3 (140-440)
[2019-07-20] MEDS: hydroCHLOROthiazide 25 MG TAB PO SCH (08:59)
[2019-07-20] MEDS: FERROUS SULFATE 308 MG (62mg Elemental Iron) / 7 ML ELIXIR PO SCH (08:59)
[2019-07-20] MEDS: FAMOTIDINE 20 MG TAB PO SCH ×2 (09:00→21:36)
[2019-07-20] MEDS: amLODIPine 10 MG TAB PO SCH (09:00)
[2019-07-20] MEDS: MULTIVITAMINS 5 ML ORAL LIQUID PO SCH (09:01)
[2019-07-20] MEDS: APIXABAN 2.5 MG TAB PO SCH ×2 (09:01→21:36)
--- NOTE | 2019-07-20 12:22 | Progress Note ---
Assessment and Plan Assessment and plan: Febrile illness - spiking low grade temp intermittently - Internal jugular tunneled hemodialysis catheter removed - ID following Acute respiratory failure; vent dependent/status post trach and PEG Off ventilatory support, on T-piece, cont trach care, scheduled nebulizers Pulmonary following Obesity hypoventilation syndrome Status post tracheostomy, titrate O2 sats to more than 90% Status post cardiac arrest mild anoxic brain injury EEG was negative for seizures and neurology evaluated Severe protein calorie malnutrition Oral pharyngeal dysphagia continue tube feeds Anemia of chronic disease Closely monitor H&H and transfuse as needed. 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 Now Patient is on Eliquis Acute kidney injury due to ATN Initially requiring dialysis Resolved, nephrology following. Hypernatremia/Hypokalemia/ hypomagnesemia Resolved Morbid obesity will need weight loss program upon discharge DVT prophylaxis scd /Eliquis Physical therapy/occupational therapy when patient is stable 07/16-patient with no fever as of yet since midnight 07/15. Cultures remain negative x72 hours. Patient remains vent dependent. 07/17consider to transfer out of the ICU to the floor. Continue tube feeding with aspiration precautions. Continue frequent suctioning, trach care, secretion control and airway management. Continue mobility protocols for pressu re ulcer prophylaxis. 07/18Continue tube feeding with aspiration precautions. Continue frequent marin ctioning, trach care, secretion control and airway management. Continue mobility protocols for pressure ulcer prophylaxis. 07/19Case management to discuss discharge planning options with the family today. Continue tube feeding with aspiration precautions. Continue frequent suctioning, trach care, secretion control and airway management. Continue mobility protocols for pressure ulcer prophylaxis. 07/20 - More alert, awake, follows commands. manager of case having discussions with family. History Interval history: patient with resp failure s/p trach and PEG Hospitalist Physical - Physical exam Narrative exam: Gen: Not in acute distress, morbidly obese HEENT: Normocephalic, atraumatic Neck: supple, no JVD,tracheostomy Heart: S1 and S2 reg, no murmurs, rubs or gallop Lungs: Clear to auscultation bilaterally, no wheeze Abd: soft, NT, non distended, normal bowel sounds,PEG Ext:No edema, no cyanosis Neuro: Awake, alert,follows commands - Constitutional Vitals: Temp Pulse Resp BP Pulse Ox 98.4 F 101 H 20 111/69 100 07/20/19 08:00 07/20/19 08:00 07/20/19 04:00 07/20/19 05:33 07/20/19 09:45 General appearance: Present: no acute distress, obese, other (tracheostomy /T- piece) Results - Labs CBC & Chem 7: 07/20/19 04:33 07/20/19 04:33 Labs: Laboratory Last Values WBC 12.3 K/mm3 (4.5-11.0) H 07/20/19 04:33 RBC 3.87 M/mm3 (3.65-5.03) 07/20/19 04:33 Hgb 11.0 gm/dl (11.8-15.2) L 07/20/19 04:33 Hct 33.9 % (35.5-45.6) L 07/20/19 04:33 MCV 88 fl (84-94) 07/20/19 04:33 MCH 29 pg (28-32) 07/20/19 04:33 MCHC 33 % (32-34) 07/20/19 04:33 RDW 19.6 % (13.2-15.2) H 07/20/19 04:33 Plt Count 385 K/mm3 (140-440) 07/20/19 04:33 Lymph % (Auto) 19.2 % (13.4-35.0) 07/20/19 04:33 [place] % (Auto) 6.1 % (0.0-7.3) 07/20/19 04:33 Eos % (Auto) 2.8 % (0.0-4.3) 07/20/19 04:33 Baso % (Auto) 1.1 % (0.0-1.8) 07/20/19 04:33 Lymph # 2.4 K/mm3 (1.2-5.4) 07/20/19 04:33 [place] # 0.8 K/mm3 (0.0-0.8) 07/20/19 04:33 Eos # 0.3 K/mm3 (0.0-0.4) 07/20/19 04:33 Baso # 0.1 K/mm3 (0.0-0.1) 07/20/19 04:33 Add Manual Diff Complete 07/08/19 04:00 Total Counted 100 07/08/19 04:00 Seg Neutrophils % 70.8 % (40.0-70.0) H 07/20/19 04:33 Seg Neuts % (Manual) 76.0 % (40.0-70.0) H 07/08/19 04:00 Band Neutrophils % 0 % 07/08/19 04:00 Lymphocytes % (Manual) 16.0 % (13.4-35.0) 07/08/19 04:00 Reactive Lymphs % (Man) 0 % 07/08/19 04:00 Monocytes % (Manual) 6.0 % (0.0-7.3) 07/08/19 04:00 Eosinophils % (Manual) 2.0 % (0.0-4.3) 07/08/19 04:00 Basophils % (Manual) 0 % (0.0-1.8) 07/08/19 04:00 Metamyelocytes % 0 % 07/08/19 04:00 Myelocytes % 0 % 07/08/19 04:00 Promyelocytes % 0 % 07/08/19 04:00 Blast Cells % 0 % 07/08/19 04:00 Nucleated RBC % Not Reportable 07/08/19 04:00 Seg Neutrophils # 8.7 K/mm3 (1.8-7.7) H 07/20/19 04:33 Seg Neutrophils # Man 8.4 K/mm3 (1.8-7.7) H 07/08/19 04:00 Band Neutrophils # 0.0 K/mm3 07/08/19 04:00 Lymphocytes # (Manual) 1.8 K/mm3 (1.2-5.4) 07/08/19 04:00 Abs React Lymphs (Man) 0.0 K/mm3 07/08/19 04:00 Monocytes # (Manual) 0.7 K/mm3 (0.0-0.8) 07/08/19 04:00 Eosinophils # (Manual) 0.2 K/mm3 (0.0-0.4) 07/08/19 04:00 Basophils # (Manual) 0.0 K/mm3 (0.0-0.1) 07/08/19 04:00 Metamyelocytes # 0.0 K/mm3 07/08/19 04:00 Myelocytes # 0.0 K/mm3 07/08/19 04:00 Promyelocytes # 0.0 K/mm3 07/08/19 04:00 Blast Cells # 0.0 K/mm3 07/08/19 04:00 WBC Morphology Not Reportable 07/08/19 04:00 Hypersegmented Neuts Not Reportable 07/08/19 04:00 Hyposegmented Neuts Not Reportable 07/08/19 04:00 Hypogranular Neuts Not Reportable 07/08/19 04:00 Smudge Cells Not Reportable 07/08/19 04:00 Toxic Granulation Not Reportable 07/08/19 04:00 Toxic Vacuolation Not Reportable 07/08/19 04:00 Dohle Bodies Not Reportable 07/08/19 04:00 Pel[place]-Huet Anomaly Not Reportable 07/08/19 04:00 Renea Rods Not Reportable 07/08/19 04:00 Platelet Estimate Consistent w auto 07/08/19 04:00 Clumped Platelets Not Reportable 07/08/19 04:00 Plt Clumps, EDTA Not Reportable 07/08/19 04:00 Large Platelets Not Reportable 07/08/19 04:00 Giant Platelets Not Reportable 07/08/19 04:00 Platelet Satelliting Not Reportable 07/08/19 04:00 Plt Morphology Comment Not Reportable 07/08/19 04:00 RBC Morphology Not Reportable 07/08/19 04:00 Dimorphic RBCs Not Reportable 07/08/19 04:00 Polychromasia Not Reportable 07/08/19 04:00 Hypochromasia Not Reportable 07/08/19 04:00 Poikilocytosis Not Reportable 07/08/19 04:00 Anisocytosis 1+ 07/08/19 04:00 Microcytosis Not Reportable 07/08/19 04:00 Macrocytosis Not Reportable 07/08/19 04:00 Spherocytes Not Reportable 07/08/19 04:00 Pappenheimer Bodies Not Reportable 07/08/19 04:00 Sickle Cells Not Reportable 07/08/19 04:00 Target Cells Not Reportable 07/08/19 04:00 Tear Drop Cells Not Reportable 07/08/19 04:00 Ovalocytes Not Reportable 07/08/19 04:00 Stomatocytes 3+ 06/23/19 05:24 Helmet Cells Not Reportable 07/08/19 04:00 [place] Bodies Not Reportable 07/08/19 04:00 [place] Rings Not Reportable 07/08/19 04:00 [place] Cells Not Reportable 07/08/19 04:00 Bite Cells Not Reportable 07/08/19 04:00 Crenated Cell Not Reportable 07/08/19 04:00 Elliptocytes Not Reportable 07/08/19 04:00 Acanthocytes (Spur) Not Reportable 07/08/19 04:00 Rouleaux Not Reportable 07/08/19 04:00 Hemoglobin C Crystals Not Reportable 07/08/19 04:00 Schistocytes Not Reportable 07/08/19 04:00 Malaria parasites Not Reportable 07/08/19 04:00 Syed Bodies Not Reportable 07/08/19 04:00 Hem Pathologist Commnt No 07/08/19 04:00 PT 15.4 Sec. (12.2-14.9) H 05/01/19 Unknown INR 1.23 (0.87-1.13) H 05/01/19 Unknown APTT 22.7 Sec. (24.2-36.6) L 05/01/19 Unknown Fibrinogen 194 mg/dl (211-480) L 06/17/19 12:45 Heparin Anti-Xa, Unfract Negative (Negative) 06/17/19 12:45 POC ABG pH 7.462 (7.35-7.45) H 06/05/19 03:52 ABG pH 7.469 pH Units (7.350-7.450) H 06/23/19 02:00 POC ABG pCO2 39.8 (35-45) 06/05/19 03:52 ABG pCO2 39.4 mm Hg 06/23/19 02:00 POC ABG pO2 86 (80-105) 06/05/19 03:52 ABG pO2 58.7 mm Hg (80.0-90.0) L 06/23/19 02:00 POC ABG HCO3 28.4 (22-26 mml/L) 06/05/19 03:52 ABG HCO3 28.0 mmol/L (20.0-26.0) H 06/23/19 02:00 POC ABG Total CO2 30 (23-27mmol/L) 06/05/19 03:52 POC ABG O2 Sat 97 06/05/19 03:52 ABG O2 Saturation 94.6 % (95.0-99.0) L 06/23/19 02:00 ABG O2 Content 9.2 (0.0-44) 06/23/19 02:00 POC ABG Base Excess 5 ((-2) - (+3)mmol/L) 06/05/19 03:52 ABG Base Excess 4.0 mmol/L (-2.0-3.0) H 06/23/19 02:00 ABG Hemoglobin 7.1 gm/dl (14.0-18.0) L 06/23/19 02:00 ABG Carboxyhemoglobin 2.0 % (0.0-5.0) 06/23/19 02:00 ABG Methemoglobin 0.5 % (0.0-1.5) 06/23/19 02:00 Oxyhemoglobin 92.2 % (95.0-99.0) L 06/23/19 02:00 FiO2 30 % 06/23/19 02:00 Sodium 140 mmol/L (137-145) 07/20/19 04:33 Potassium 4.0 mmol/L (3.6-5.0) 07/20/19 04:33 Chloride 99.4 mmol/L (98-107) 07/20/19 04:33 Carbon Dioxide 20 mmol/L (22-30) L 07/20/19 04:33 Anion Gap 25 mmol/L 07/20/19 04:33 BUN 9 mg/dL (9-20) 07/20/19 04:33 Creatinine 0.5 mg/dL (0.8-1.5) L 07/20/19 04:33 Estimated GFR > 60 ml/min 07/20/19 04:33 BUN/Creatinine Ratio 18 % 07/20/19 04:33 Glucose 116 mg/dL (75-100) H 07/20/19 04:33 POC Glucose 95 (70-105) 07/20/19 06:51 Osmolality 327 Mosm/kg 05/07/19 13:45 Uric Acid 18.0 mg/dL (3.5-7.6) H 05/07/19 13:45 Calcium 10.0 mg/dL (8.4-10.2) 07/20/19 04:33 Phosphorus 3.70 mg/dL (2.5-4.5) 06/10/19 05:45 Magnesium 1.60 mg/dL (1.7-2.3) L 06/26/19 04:43 Iron 45 ug/dL (49-181) L 06/20/19 09:12 TIBC 110 mcg/dL (250-450) L 06/20/19 09:12 Ferritin 315.2 ng/mL (13.0-400.0) 06/20/19 09:12 Total Bilirubin 0.50 mg/dL (0.1-1.2) 06/08/19 04:20 AST 23 units/L (5-40) 06/08/19 04:20 ALT 66 units/L (7-56) H 06/08/19 04:20 Alkaline Phosphatase 59 units/L (35-129) 06/08/19 04:20 Total Creatine Kinase 131 units/L (55-170) 05/02/19 04:41 CK-MB (CK-2) 5.2 ng/mL (0.0-4.0) H 05/02/19 04:41 CK-MB (CK-2) Rel Index 3.9 (0-4) 05/02/19 04:41 Troponin T 0.067 ng/mL (0.00-0.029) H D 05/02/19 04:41 NT-Pro-B Natriuret Pep 6831 pg/mL (0-450) H 05/01/19 Unknown Total Protein 5.5 g/dL (6.3-8.2) L 06/08/19 04:20 Albumin 2.9 g/dL (3.9-5) L 06/08/19 04:20 Albumin/Globulin Ratio 1.1 % 06/08/19 04:20 Triglycerides 210 mg/dL (2-149) H 06/19/19 04:30 Cholesterol 173 mg/dL (50-199) 05/02/19 00:06 LDL Cholesterol Direct 126 mg/dL (50-130) 05/02/19 00:06 HDL Cholesterol 18 mg/dL (40-59) L 05/02/19 00:06 Cholesterol/HDL Ratio 9.61 % 05/02/19 00:06 Serotonin Release Assay See scanned results 06/17/19 12:45 Vitamin B12 353.0 pg/mL (211-911) 06/20/19 09:12 Folate 7.01 ng/mL (7.3-26.0) L 06/20/19 09:12 Procalcitonin 0.05 ng/mL (<0.15) 06/17/19 12:45 Urine Color Yellow (Yellow) 06/17/19 12:45 Urine Turbidity Slightly-cloudy (Clear) 06/17/19 12:45 Urine pH 5.0 (5.0-7.0) 06/17/19 12:45 Ur Specific [place] 1.013 (1.003-1.030) 06/17/19 12:45 Urine Protein <15 mg/dl mg/dL (Negative) 06/17/19 12:45 Urine Glucose (UA) Neg mg/dL (Negative) 06/17/19 12:45 Urine Ketones Neg mg/dL (Negative) 06/17/19 12:45 Urine Blood Sm (Negative) 06/17/19 12:45 Urine Nitrite Neg (Negative) 06/17/19 12:45 Urine Bilirubin Neg (Negative) 06/17/19 12:45 Urine Urobilinogen < 2.0 mg/dL (<2.0) 06/17/19 12:45 Ur Leukocyte Esterase Neg (Negative) 06/17/19 12:45 Urine WBC (Auto) 2.0 /HPF (0.0-6.0) 06/17/19 12:45 Urine RBC (Auto) 2.0 /HPF (0.0-6.0) 06/17/19 12:45 U Epithel Cells (Auto) < 1.0 /HPF (0-13.0) 06/17/19 12:45 Urine Bacteria (Auto) 1+ /HPF (Negative) 05/20/19 12:00 Uric Acid Crystals 3+ 05/03/19 10:55 Urine Mucus Few /HPF 06/17/19 12:45 Urine Yeast (Budding) 3+ /HPF 05/20/19 12:00 Urine Creatinine 292.8 mg/dL (0.1-20.0) H 05/07/19 22:40 Urine Sodium 11 mmol/L 05/07/19 22:40 Urine Total Protein 269 mg/dL (5-11.8) H 05/07/19 22:40 Vancomycin Trough 20.5 ug/mL (5.0-20.0) H 05/15/19 09:00 Random Vancomycin 11.5 ug/mL (0-40.0) 05/27/19 06:00 AMNA Screen Negative (Negative) 05/07/19 13:45 Heparin-induced Plt Ab Negative (Negative) 06/17/19 12:45 UF Heparin High Dose 13 % Release 06/17/19 12:45 YUNG UFH Low Dose 0.1 8 % Release 06/17/19 12:45 YUNG UFH Low Dose 0.5 7 % Release 06/17/19 12:45 Hepatitis A IgM Ab Non-reactive (NonReactive) 05/07/19 13:45 Hep Bs Antigen Non-reactive (Negative) 05/07/19 13:45 Hep B Core IgM Ab Non-reactive (NonReactive) 05/07/19 13:45 Hepatitis C Antibody Non-reactive (NonReactive) 05/07/19 13:45 Influenza A (Rapid) Negative (Negative) 06/17/19 11:35 Influenza B (Rapid) Negative (Negative) 06/17/19 11:35 Active Medications - Current Medications Current Medications: Generic Name Dose Route Start Last Admin Trade Name Freq PRN Reason Stop Dose Admin Acetaminophen 650 mg 07/02/19 23:56 07/18/19 05:16 Tylenol PO 650 mg Q4H PRN Administration Pain, Mild (1-3) Amlodipine Besylate 10 mg 06/25/19 11:00 07/20/19 09:00 Amlodipine PO 10 mg DAILY VICKEY Administration Lipase/Protease/Amylase 1 each 07/15/19 12:26 Pancreaze 10,500 Unit FEEDTUBE PRN PRN For Clogged Feeding Tube Apixaban 2.5 mg 06/23/19 22:00 07/20/19 09:01 Eliquis PO 2.5 mg Q12HR VICKEY Administration Protocol Dextrose 50 gm 05/01/19 20:24 D50w (25gm) Vial IV Q30MIN PRN Hypoglycemia Protocol Famotidine 20 mg 06/17/19 10:00 07/20/19 09:00 Pepcid PO 20 mg BID VICKEY Administration Ferrous Sulfate 308 mg 06/18/19 12:00 07/20/19 08:59 Ferrous Sulfate PO 308 mg QDAY VICKEY Administration Hydrochlorothiazide 25 mg 06/26/19 11:00 07/20/19 08:59 Hctz PO 25 mg QDAY VICKEY Administration Insulin Human Lispro 0 unit 06/01/19 14:00 07/20/19 05:38 Humalog SUB-Q Not Given Q6HR [facility] Protocol Labetalol HCl 200 mg 06/28/19 10:00 07/20/19 05:33 Labetalol PO 200 mg Q8HR VICKEY Administration Multi-Ingred Cream/Lotion/Oil/Oint 1 applic 06/16/19 18:00 Artificial Tears Ophth Oint OU Q4HR PRN Dry Eye(s) Multivitamins 5 ml 06/29/19 12:00 07/20/19 09:01 Centrum Liq PO 5 ml QDAY VICKEY Administration Scopolamine 1 each 06/27/19 09:00 07/18/19 09:41 Transderm-Scop TD 1 each Q3D VICKEY Administration Simple Syrup 15 ml 07/15/19 12:26 Simple Syrup FEEDTUBE PRN PRN Hypoglycemia Simple Syrup 30 ml 07/15/19 12:26 Simple Syrup FEEDTUBE PRN PRN Hypoglycemia Sodium Bicarbonate 325 mg 07/15/19 12:26 Sodium Bicarbonate FEEDTUBE PRN PRN For Clogged Feeding Tube Nutrition/Malnutrition Assess - Dietary Evaluation Nutrition/Malnutrition Findings: Nutrition Notes Start: 05/04/19 12:54 Freq: Status: Active Protocol: Document 07/15/19 12:23 CT (Rec: 07/15/19 12:26 CT [email or web address]) Co-Sign 07/15/19 12:23 LM Nutrition Notes Initial or Follow up Reassessment Current Diagnosis Acute Kidney Injury,Sepsis, Respiratory Failure Other Pertinent Diagnosis HD Current Diet Osmolite 1.5 at 60 ml/hr Labs/Tests Na 138 POC Glu 123 Pertinent Medications KCl Height 6 ft 4 in Weight 189.8 kg [place] Body Weight (kg) 91.81 BMI 50.9 Weight Status Morbidly Obese Subjective/Other Information Osmolite running at 60 ml/hr at time of visit. Pt tolerating TF. Percent of energy/protein needs met: 100%/100% Burn Absent Trauma Absent GI Symptoms None Current % PO Negligible Minimum of two criteria No Fluid Accumulation Moderate to Severe (severe) #1 Nutrition Diagnosis Inadequate oral intake Diagnosis Progress(for reassessment Continues documentation) Is patient on ventilator? Yes Is Patient Ambulatory and/or Out of Bed No REE-([place]-St. Jeor-confined to bed) 3534.288 Kcal/Kg value to use for calculation 11 Approximate Energy Requirements Using 2088 kcal/Kg Calculation Used for Recommendations Kcal/kg Additional Notes PRO needs: 73-91g (0.8-1 g/kg IBW 91kg CARLA resolved) Fluid needs: 1 ml/kcal Nutrition Intervention Change Diet Order: Continue TF Nutrition Support: Osmolite at 60 ml/hr Flush 200 ml q4h Kcal 2,160 Protein (gm) 90 Fluid (mL) 1,097 Goal #1 TF tolerance Goal #2 Meet at least 80% of PRO/kcal needs via TF Anticipated Discharge Needs: Unable to determine at this time Follow-Up By: 07/21/19 Additional Comments Follow up for TF tolerance
[2019-07-21] MEDS: INSULIN LISPRO 100 UNIT/ML SUB-Q SCH ×4 (01:19→18:39)
--- NOTE | 2019-07-21 08:56 | Progress Note ---
Assessment and Plan Assessment and plan: Febrile illness - spiking low grade temp intermittently - Internal jugular tunneled hemodialysis catheter removed - ID following Acute respiratory failure; vent dependent/status post trach and PEG Off ventilatory support, on T-piece, cont trach care, scheduled nebulizers Pulmonary following Obesity hypoventilation syndrome Status post tracheostomy, titrate O2 sats to more than 90% Status post cardiac arrest mild anoxic brain injury EEG was negative for seizures and neurology evaluated Severe protein calorie malnutrition Oral pharyngeal dysphagia continue tube feeds Anemia of chronic disease Closely monitor H&H and transfuse as needed. 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 Now Patient is on Eliquis Acute kidney injury due to ATN Initially requiring dialysis Resolved, nephrology following. Hypernatremia/Hypokalemia/ hypomagnesemia Resolved Morbid obesity will need weight loss program upon discharge DVT prophylaxis scd /Eliquis Physical therapy/occupational therapy when patient is stable 07/16-patient with no fever as of yet since midnight 07/15. Cultures remain negative x72 hours. Patient remains vent dependent. 07/17consider to transfer out of the ICU to the floor. Continue tube feeding with aspiration precautions. Continue frequent suctioning, trach care, secretion control and airway management. Continue mobility protocols for pressu re ulcer prophylaxis. 07/18Continue tube feeding with aspiration precautions. Continue frequent marin ctioning, trach care, secretion control and airway management. Continue mobility protocols for pressure ulcer prophylaxis. 07/19Case management to discuss discharge planning options with the family today. Continue tube feeding with aspiration precautions. Continue frequent suctioning, trach care, secretion control and airway management. Continue mobility protocols for pressure ulcer prophylaxis. 07/20 - More alert, awake, follows commands. returned case inspector having discussions with family. 07/21- More alert,was agitated therefore restraints renewed History Interval history: Patient with respiratory failure s/p trach and PEG Hospitalist Physical - Physical exam Narrative exam: Gen: Not in acute distress, morbidly obese HEENT: Normocephalic, atraumatic Neck: supple, no JVD,tracheostomy Heart: S1 and S2 reg, no murmurs, rubs or gallop Lungs: Clear to auscultation bilaterally, no wheeze Abd: soft, NT, non distended, normal bowel sounds,PEG Ext:No edema, no cyanosis Neuro: Awake, alert,follows commands - Constitutional Vitals: Temp Pulse Resp BP Pulse Ox 98.4 F 91 H 28 H 120/60 99 07/21/19 08:00 07/21/19 08:00 07/21/19 08:00 07/21/19 08:00 07/21/19 08:00 General appearance: Present: no acute distress, obese, other (tracheostomy /T- piece) Results - Labs CBC & Chem 7: 07/20/19 04:33 07/20/19 04:33 Labs: Laboratory Last Values WBC 12.3 K/mm3 (4.5-11.0) H 07/20/19 04:33 RBC 3.87 M/mm3 (3.65-5.03) 07/20/19 04:33 Hgb 11.0 gm/dl (11.8-15.2) L 07/20/19 04:33 Hct 33.9 % (35.5-45.6) L 07/20/19 04:33 MCV 88 fl (84-94) 07/20/19 04:33 MCH 29 pg (28-32) 07/20/19 04:33 MCHC 33 % (32-34) 07/20/19 04:33 RDW 19.6 % (13.2-15.2) H 07/20/19 04:33 Plt Count 385 K/mm3 (140-440) 07/20/19 04:33 Lymph % (Auto) 19.2 % (13.4-35.0) 07/20/19 04:33 [place] % (Auto) 6.1 % (0.0-7.3) 07/20/19 04:33 Eos % (Auto) 2.8 % (0.0-4.3) 07/20/19 04:33 Baso % (Auto) 1.1 % (0.0-1.8) 07/20/19 04:33 Lymph # 2.4 K/mm3 (1.2-5.4) 07/20/19 04:33 [place] # 0.8 K/mm3 (0.0-0.8) 07/20/19 04:33 Eos # 0.3 K/mm3 (0.0-0.4) 07/20/19 04:33 Baso # 0.1 K/mm3 (0.0-0.1) 07/20/19 04:33 Add Manual Diff Complete 07/08/19 04:00 Total Counted 100 07/08/19 04:00 Seg Neutrophils % 70.8 % (40.0-70.0) H 07/20/19 04:33 Seg Neuts % (Manual) 76.0 % (40.0-70.0) H 07/08/19 04:00 Band Neutrophils % 0 % 07/08/19 04:00 Lymphocytes % (Manual) 16.0 % (13.4-35.0) 07/08/19 04:00 Reactive Lymphs % (Man) 0 % 07/08/19 04:00 Monocytes % (Manual) 6.0 % (0.0-7.3) 07/08/19 04:00 Eosinophils % (Manual) 2.0 % (0.0-4.3) 07/08/19 04:00 Basophils % (Manual) 0 % (0.0-1.8) 07/08/19 04:00 Metamyelocytes % 0 % 07/08/19 04:00 Myelocytes % 0 % 07/08/19 04:00 Promyelocytes % 0 % 07/08/19 04:00 Blast Cells % 0 % 07/08/19 04:00 Nucleated RBC % Not Reportable 07/08/19 04:00 Seg Neutrophils # 8.7 K/mm3 (1.8-7.7) H 07/20/19 04:33 Seg Neutrophils # Man 8.4 K/mm3 (1.8-7.7) H 07/08/19 04:00 Band Neutrophils # 0.0 K/mm3 07/08/19 04:00 Lymphocytes # (Manual) 1.8 K/mm3 (1.2-5.4) 07/08/19 04:00 Abs React Lymphs (Man) 0.0 K/mm3 07/08/19 04:00 Monocytes # (Manual) 0.7 K/mm3 (0.0-0.8) 07/08/19 04:00 Eosinophils # (Manual) 0.2 K/mm3 (0.0-0.4) 07/08/19 04:00 Basophils # (Manual) 0.0 K/mm3 (0.0-0.1) 07/08/19 04:00 Metamyelocytes # 0.0 K/mm3 07/08/19 04:00 Myelocytes # 0.0 K/mm3 07/08/19 04:00 Promyelocytes # 0.0 K/mm3 07/08/19 04:00 Blast Cells # 0.0 K/mm3 07/08/19 04:00 WBC Morphology Not Reportable 07/08/19 04:00 Hypersegmented Neuts Not Reportable 07/08/19 04:00 Hyposegmented Neuts Not Reportable 07/08/19 04:00 Hypogranular Neuts Not Reportable 07/08/19 04:00 Smudge Cells Not Reportable 07/08/19 04:00 Toxic Granulation Not Reportable 07/08/19 04:00 Toxic Vacuolation Not Reportable 07/08/19 04:00 Dohle Bodies Not Reportable 07/08/19 04:00 Pelger-Huet Anomaly Not Reportable 07/08/19 04:00 Renea Rods Not Reportable 07/08/19 04:00 Platelet Estimate Consistent w auto 07/08/19 04:00 Clumped Platelets Not Reportable 07/08/19 04:00 Plt Clumps, EDTA Not Reportable 07/08/19 04:00 Large Platelets Not Reportable 07/08/19 04:00 Giant Platelets Not Reportable 07/08/19 04:00 Platelet Satelliting Not Reportable 07/08/19 04:00 Plt Morphology Comment Not Reportable 07/08/19 04:00 RBC Morphology Not Reportable 07/08/19 04:00 Dimorphic RBCs Not Reportable 07/08/19 04:00 Polychromasia Not Reportable 07/08/19 04:00 Hypochromasia Not Reportable 07/08/19 04:00 Poikilocytosis Not Reportable 07/08/19 04:00 Anisocytosis 1+ 07/08/19 04:00 Microcytosis Not Reportable 07/08/19 04:00 Macrocytosis Not Reportable 07/08/19 04:00 Spherocytes Not Reportable 07/08/19 04:00 Pappenheimer Bodies Not Reportable 07/08/19 04:00 Sickle Cells Not Reportable 07/08/19 04:00 Target Cells Not Reportable 07/08/19 04:00 Tear Drop Cells Not Reportable 07/08/19 04:00 Ovalocytes Not Reportable 07/08/19 04:00 Stomatocytes 3+ 06/23/19 05:24 Helmet Cells Not Reportable 07/08/19 04:00 [place]-Dushore Bodies Not Reportable 07/08/19 04:00 [place] Rings Not Reportable 07/08/19 04:00 Dennis Cells Not Reportable 07/08/19 04:00 Bite Cells Not Reportable 07/08/19 04:00 Crenated Cell Not Reportable 07/08/19 04:00 Elliptocytes Not Reportable 07/08/19 04:00 Acanthocytes (Spur) Not Reportable 07/08/19 04:00 Rouleaux Not Reportable 07/08/19 04:00 Hemoglobin C Crystals Not Reportable 07/08/19 04:00 Schistocytes Not Reportable 07/08/19 04:00 Malaria parasites Not Reportable 07/08/19 04:00 Syed Bodies Not Reportable 07/08/19 04:00 Hem Pathologist Commnt No 07/08/19 04:00 PT 15.4 Sec. (12.2-14.9) H 05/01/19 Unknown INR 1.23 (0.87-1.13) H 05/01/19 Unknown APTT 22.7 Sec. (24.2-36.6) L 05/01/19 Unknown Fibrinogen 194 mg/dl (211-480) L 06/17/19 12:45 Heparin Anti-Xa, Unfract Negative (Negative) 06/17/19 12:45 POC ABG pH 7.462 (7.35-7.45) H 06/05/19 03:52 ABG pH 7.469 pH Units (7.350-7.450) H 06/23/19 02:00 POC ABG pCO2 39.8 (35-45) 06/05/19 03:52 ABG pCO2 39.4 mm Hg 06/23/19 02:00 POC ABG pO2 86 (80-105) 06/05/19 03:52 ABG pO2 58.7 mm Hg (80.0-90.0) L 06/23/19 02:00 POC ABG HCO3 28.4 (22-26 mml/L) 06/05/19 03:52 ABG HCO3 28.0 mmol/L (20.0-26.0) H 06/23/19 02:00 POC ABG Total CO2 30 (23-27mmol/L) 06/05/19 03:52 POC ABG O2 Sat 97 06/05/19 03:52 ABG O2 Saturation 94.6 % (95.0-99.0) L 06/23/19 02:00 ABG O2 Content 9.2 (0.0-44) 06/23/19 02:00 POC ABG Base Excess 5 ((-2) - (+3)mmol/L) 06/05/19 03:52 ABG Base Excess 4.0 mmol/L (-2.0-3.0) H 06/23/19 02:00 ABG Hemoglobin 7.1 gm/dl (14.0-18.0) L 06/23/19 02:00 ABG Carboxyhemoglobin 2.0 % (0.0-5.0) 06/23/19 02:00 ABG Methemoglobin 0.5 % (0.0-1.5) 06/23/19 02:00 Oxyhemoglobin 92.2 % (95.0-99.0) L 06/23/19 02:00 FiO2 30 % 06/23/19 02:00 Sodium 140 mmol/L (137-145) 07/20/19 04:33 Potassium 4.0 mmol/L (3.6-5.0) 07/20/19 04:33 Chloride 99.4 mmol/L (98-107) 07/20/19 04:33 Carbon Dioxide 20 mmol/L (22-30) L 07/20/19 04:33 Anion Gap 25 mmol/L 07/20/19 04:33 BUN 9 mg/dL (9-20) 07/20/19 04:33 Creatinine 0.5 mg/dL (0.8-1.5) L 07/20/19 04:33 Estimated GFR > 60 ml/min 07/20/19 04:33 BUN/Creatinine Ratio 18 % 07/20/19 04:33 Glucose 116 mg/dL (75-100) H 07/20/19 04:33 POC Glucose 116 (70-105) H 07/21/19 05:34 Osmolality 327 Mosm/kg 05/07/19 13:45 Uric Acid 18.0 mg/dL (3.5-7.6) H 05/07/19 13:45 Calcium 10.0 mg/dL (8.4-10.2) 07/20/19 04:33 Phosphorus 3.70 mg/dL (2.5-4.5) 06/10/19 05:45 Magnesium 1.60 mg/dL (1.7-2.3) L 06/26/19 04:43 Iron 45 ug/dL (49-181) L 06/20/19 09:12 TIBC 110 mcg/dL (250-450) L 06/20/19 09:12 Ferritin 315.2 ng/mL (13.0-400.0) 06/20/19 09:12 Total Bilirubin 0.50 mg/dL (0.1-1.2) 06/08/19 04:20 AST 23 units/L (5-40) 06/08/19 04:20 ALT 66 units/L (7-56) H 06/08/19 04:20 Alkaline Phosphatase 59 units/L (35-129) 06/08/19 04:20 Total Creatine Kinase 131 units/L (55-170) 05/02/19 04:41 CK-MB (CK-2) 5.2 ng/mL (0.0-4.0) H 05/02/19 04:41 CK-MB (CK-2) Rel Index 3.9 (0-4) 05/02/19 04:41 Troponin T 0.067 ng/mL (0.00-0.029) H D 05/02/19 04:41 NT-Pro-B Natriuret Pep 6831 pg/mL (0-450) H 05/01/19 Unknown Total Protein 5.5 g/dL (6.3-8.2) L 06/08/19 04:20 Albumin 2.9 g/dL (3.9-5) L 06/08/19 04:20 Albumin/Globulin Ratio 1.1 % 06/08/19 04:20 Triglycerides 210 mg/dL (2-149) H 06/19/19 04:30 Cholesterol 173 mg/dL (50-199) 05/02/19 00:06 LDL Cholesterol Direct 126 mg/dL (50-130) 05/02/19 00:06 HDL Cholesterol 18 mg/dL (40-59) L 05/02/19 00:06 Cholesterol/HDL Ratio 9.61 % 05/02/19 00:06 Serotonin Release Assay See scanned results 06/17/19 12:45 Vitamin B12 353.0 pg/mL (211-911) 06/20/19 09:12 Folate 7.01 ng/mL (7.3-26.0) L 06/20/19 09:12 Procalcitonin 0.05 ng/mL (<0.15) 06/17/19 12:45 Urine Color Yellow (Yellow) 06/17/19 12:45 Urine Turbidity Slightly-cloudy (Clear) 06/17/19 12:45 Urine pH 5.0 (5.0-7.0) 06/17/19 12:45 Ur Specific [place] 1.013 (1.003-1.030) 06/17/19 12:45 Urine Protein <15 mg/dl mg/dL (Negative) 06/17/19 12:45 Urine Glucose (UA) Neg mg/dL (Negative) 06/17/19 12:45 Urine Ketones Neg mg/dL (Negative) 06/17/19 12:45 Urine Blood Sm (Negative) 06/17/19 12:45 Urine Nitrite Neg (Negative) 06/17/19 12:45 Urine Bilirubin Neg (Negative) 06/17/19 12:45 Urine Urobilinogen < 2.0 mg/dL (<2.0) 06/17/19 12:45 Ur Leukocyte Esterase Neg (Negative) 06/17/19 12:45 Urine WBC (Auto) 2.0 /HPF (0.0-6.0) 06/17/19 12:45 Urine RBC (Auto) 2.0 /HPF (0.0-6.0) 06/17/19 12:45 U Epithel Cells (Auto) < 1.0 /HPF (0-13.0) 06/17/19 12:45 Urine Bacteria (Auto) 1+ /HPF (Negative) 05/20/19 12:00 Uric Acid Crystals 3+ 05/03/19 10:55 Urine Mucus Few /HPF 06/17/19 12:45 Urine Yeast (Budding) 3+ /HPF 05/20/19 12:00 Urine Creatinine 292.8 mg/dL (0.1-20.0) H 05/07/19 22:40 Urine Sodium 11 mmol/L 05/07/19 22:40 Urine Total Protein 269 mg/dL (5-11.8) H 12/13/19 22:40 Vancomycin Trough 20.5 ug/mL (5.0-20.0) H 05/15/19 09:00 Random Vancomycin 11.5 ug/mL (0-40.0) 05/27/19 06:00 AMNA Screen Negative (Negative) 05/07/19 13:45 Heparin-induced Plt Ab Negative (Negative) 06/17/19 12:45 UF Heparin High Dose 13 % Release 06/17/19 12:45 YUNG UFH Low Dose 0.1 8 % Release 06/17/19 12:45 YUNG UFH Low Dose 0.5 7 % Release 06/17/19 12:45 Hepatitis A IgM Ab Non-reactive (NonReactive) 05/07/19 13:45 Hep Bs Antigen Non-reactive (Negative) 05/07/19 13:45 Hep B Core IgM Ab Non-reactive (NonReactive) 05/07/19 13:45 Hepatitis C Antibody Non-reactive (NonReactive) 05/07/19 13:45 Influenza A (Rapid) Negative (Negative) 06/17/19 11:35 Influenza B (Rapid) Negative (Negative) 06/17/19 11:35 Active Medications - Current Medications Current Medications: Generic Name Dose Route Start Last Admin Trade Name Freq PRN Reason Stop Dose Admin Acetaminophen 650 mg 07/02/19 23:56 07/18/19 05:16 Tylenol PO 650 mg Q4H PRN Administration Pain, Mild (1-3) Amlodipine Besylate 10 mg 06/25/19 11:00 07/20/19 09:00 Amlodipine PO 10 mg DAILY VICKEY Administration Lipase/Protease/Amylase 1 each 07/15/19 12:[address] 10,500 Unit FEEDTUBE PRN PRN For Clogged Feeding Tube Apixaban 2.5 mg 06/23/19 22:00 07/20/19 21:36 Eliquis PO 2.5 mg Q12HR VICKEY Administration Protocol Dextrose 50 gm 05/01/19 20:24 D50w (25gm) Vial IV Q30MIN PRN Hypoglycemia Protocol Famotidine 20 mg 06/17/19 10:00 07/20/19 21:36 Pepcid PO 20 mg BID VICKEY Administration Ferrous Sulfate 308 mg 06/18/19 12:00 07/20/19 08:59 Ferrous Sulfate PO 308 mg QDAY VICKEY Administration Hydrochlorothiazide 25 mg 06/26/19 11:00 07/20/19 08:59 Hctz PO 25 mg QDAY VICKEY Administration Insulin Human Lispro 0 unit 06/01/19 14:00 07/21/19 05:31 Humalog SUB-Q Not Given Q6HR [facility] Protocol Labetalol HCl 200 mg 06/28/19 10:00 07/21/19 05:05 Labetalol PO 200 mg Q8HR VICKEY Administration Multi-Ingred Cream/Lotion/Oil/Oint 1 applic 06/16/19 18:00 Artificial Tears Ophth Oint OU Q4HR PRN Dry Eye(s) Multivitamins 5 ml 06/29/19 12:00 07/20/19 09:01 Centrum Liq PO 5 ml QDAY VICKEY Administration Scopolamine 1 each 06/27/19 09:00 07/18/19 09:41 Transderm-Scop TD 1 each Q3D VICKEY Administration Simple Syrup 15 ml 07/15/19 12:26 Simple Syrup FEEDTUBE PRN PRN Hypoglycemia Simple Syrup 30 ml 07/15/19 12:26 Simple Syrup FEEDTUBE PRN PRN Hypoglycemia Sodium Bicarbonate 325 mg 07/15/19 12:26 Sodium Bicarbonate FEEDTUBE PRN PRN For Clogged Feeding Tube Nutrition/Malnutrition Assess - Dietary Evaluation Nutrition/Malnutrition Findings: Nutrition Notes Start: 05/04/19 12:54 Freq: Status: Active Protocol: Document 07/15/19 12:23 CT (Rec: 07/15/19 12:26 CT [email or web address]) Co-Sign 07/15/19 12:23 LM Nutrition Notes Initial or Follow up Reassessment Current Diagnosis Acute Kidney Injury,Sepsis, Respiratory Failure Other Pertinent Diagnosis HD Current Diet Osmolite 1.5 at 60 ml/hr Labs/Tests Na 138 POC Glu 123 Pertinent Medications KCl Height 6 ft 4 in Weight 189.8 kg [place] Body Weight (kg) 91.81 BMI 50.9 Weight Status Morbidly Obese Subjective/Other Information Osmolite running at 60 ml/hr at time of visit. Pt tolerating TF. Percent of energy/protein needs met: 100%/100% Burn Absent Trauma Absent GI Symptoms None Current % PO Negligible Minimum of two criteria No Fluid Accumulation Moderate to Severe (severe) #1 Nutrition Diagnosis Inadequate oral intake Diagnosis Progress(for reassessment Continues documentation) Is patient on ventilator? Yes Is Patient Ambulatory and/or Out of Bed No REE-([place]-confined to bed) 3534.288 Kcal/Kg value to use for calculation 11 Approximate Energy Requirements Using 8 kcal/Kg Calculation Used for Recommendations Kcal/kg Additional Notes PRO needs: 73-91g (0.8-1 g/kg IBW 91kg CARLA resolved) Fluid needs: 1 ml/kcal Nutrition Intervention Change Diet Order: Continue TF Nutrition Support: Osmolite at 60 ml/hr Flush 200 ml q4h Kcal 2,160 Protein (gm) 90 Fluid (mL) 1,097 Goal #1 TF tolerance Goal #2 Meet at least 80% of PRO/kcal needs via TF Anticipated Discharge Needs: Unable to determine at this time Follow-Up By: 07/21/19 Additional Comments Follow up for TF tolerance
[2019-07-21] MEDS: SCOPOLAMINE TRANSDERMAL PATCH 72 HR TD SCH (09:37)
[2019-07-21] MEDS: amLODIPine 10 MG TAB PO SCH (09:38)
[2019-07-21] MEDS: APIXABAN 2.5 MG TAB PO SCH ×2 (09:39→21:02)
[2019-07-21] MEDS: FERROUS SULFATE 308 MG (62mg Elemental Iron) / 7 ML ELIXIR PO SCH (09:39)
[2019-07-21] MEDS: MULTIVITAMINS 5 ML ORAL LIQUID PO SCH (09:39)
[2019-07-21] MEDS: hydroCHLOROthiazide 25 MG TAB PO SCH (09:40)
[2019-07-21] MEDS: FAMOTIDINE 20 MG TAB PO SCH ×2 (09:40→21:03)
--- NOTE | 2019-07-21 10:41 | Progress Note ---
Assessment and Plan 34 y/o male with acute hypoxic, hypercapnic respiratory failure now with trach and uncontrolled hypertension. 07/21/2019: No new recs. Pulm status stable. Placement is barrier to discharge given lack of funding and mother not responding. 07/19/2019: Stable pulm status. Per CM called mother to discuss goals of care but she has not responded. 07/16/2019: Stable pulm status. Will see PRN over the weekend. 07/15/2019: Patient has been stable pulm murphy thus far. No objection with transfer to [facility], close to nursing station though given history of patient pulling out trach. 07/13/2019: No new recs from today. Please see below. 07/10/2019: Continue PT/OT 07/09/2019: No new recs for today. Contiue PT/OT. Disposition is unknown secondary to lack of funding. 07/08/19: No new recs for today. Contiue PT/OT. Disposition is unknown secondary to lack of funding. 07/07/19. Stopping prednisone as this wasn't stopped over the weekend. Needs suctioning and asked that if transferred please place patient close as possible to nursing station. 07/06/19: Continue IMCU care. Requires frequent suctioning. PT/OT 07/02/19: Patient should not be transferred to the floor. Although his pulm status is stable, he is very high risk for decompensation and if the incident that happened last night, happened on the floor, that may have been his demise. Ok with right arm restraint for now. 07/01/2019: Continue current care. PT/OT. Work on discharge planning. steroids to 5 daily, will likely stop Friday or Friday. Stable but my concern is that if he goes to the floor, he will not get the proper suctioning needed. Will continue IMCU service 06/26/2019: Will discontinue vent from room. patient was placed on vent last night. Not sure why. Will place orders for continued T-piece. Appears he was doing well with no issues. If tolerates being off vent tonight, transition to step down tomorrow. Increase HCTZ to 25 06/25/2019: Continue T-piece today as tolerated. Only rest of vent if needed. If not needed tonight then will discontinue vent from room. Spoke with IR, and they will remove Perm cath today as this could be a cause of fevers. Follow up cultures and ID recs. Will increase Free H2O to [id number]. Change steroids to 10 PO starting tomorrow morning. Added scheduled BP meds. 06/24/2019: Will attempt T-piece later today, if tolerates, then will continue trial indefinitely. PT/OT will need to start seeing him again. Will drop steroids to 10 daily (PO) starting Friday morning. 06/23/2019: PSV all day today and tomorrow. Will start T-piece either tomorrow or Friday. Tolerating Feeds 06/22/2019: Patient scheduled for OR today. Plan as outlined in Dr. Saez's note from yesterday. Discussed with patient again this am. Really appreciate surgery help with this and the promptness of procedure. Will follow up post-op later today. 06/21/2019: Unfortunately re-intubated last week. Will need Trach and Peg, but I doubt peg will happen secondary to his size. Will discuss with surgery and maybe they can just put in a number 6 XLT from the start. I think he will get off the vent relatively quickly and can start to eat. This trach will be indefinite. I have explained this to him. I have not seen his family at the bedside during this admission but Im told they come in the evenings. 06/12/2019: Started HCTZ 50 daily and Labetalol 100 TID. Will increase Labetalol to 200 TID. Already on Clonidine patch. Continue Minoxidil. Will start to wean drip. PT/OT. Feeds through NG now that this is in place. Will need speech re-evaluation. Will order NT suctioning at least [id number] for the next 24 hours. 06/11/2019: Bipap at night and PRN. Na levels are increasing. Agree with D5W. Unable to place DH, several nurses tried. Will ask speech to come by and reassess now that patient is more willing to cooperate. . Continue PT/OT, sat up on side of bed yesterday. Continue IMCU monitoring for now. As stated below, patient was intubated for 37 days. CCT 31 minutes. Subjective Date of service: 07/21/19 Principal diagnosis: anemia - LOw PLT Interval history: No acute events. Objective Vital Signs - 12hr 07/21/19 07/21/19 07/21/19 00:00 01:46 02:00 Temperature 98.9 F Pulse Rate 92 H 96 H Pulse Rate [ Right Dorsalis Pedis] Respiratory 23 21 Rate Blood Pressure 119/71 119/71 O2 Sat by Pulse 97 91 Oximetry O2 Sat by Pulse 100 Oximetry [ Assessment] 07/21/19 07/21/19 07/21/19 04:00 05:05 06:00 Temperature 99.2 F Pulse Rate 168 H 98 H 87 Pulse Rate [ Right Dorsalis Pedis] Respiratory 31 H 26 H Rate Blood Pressure 115/75 115/73 115/73 O2 Sat by Pulse 94 94 Oximetry O2 Sat by Pulse Oximetry [ Assessment] 07/21/19 07/21/19 07/21/19 08:00 09:38 10:00 Temperature 98.4 F Pulse Rate 91 H 93 H Pulse Rate [ 91 H Right Dorsalis Pedis] Respiratory 28 H Rate Blood Pressure 120/60 129/104 O2 Sat by Pulse 99 95 Oximetry O2 Sat by Pulse Oximetry [ Assessment] 07/21/19 10:15 Temperature Pulse Rate Pulse Rate [ Right Dorsalis Pedis] Respiratory Rate Blood Pressure O2 Sat by Pulse Oximetry O2 Sat by Pulse 95 Oximetry [ Assessment] Constitutional: other (morbidly obese male,on trach tpiece) Eyes: non-icteric ENT: oropharynx moist Neck: supple, other (extremely large in circumference trach in place) Effort: normal Ascultation: Bilateral: diminished breath sounds (secondary to body habitus), rhonchi, other (Upper airway noises due to secretions) Cardiovascular: regular rate and rhythm (no mrg) Gastrointestinal: normoactive bowel sounds, soft, non-tender, other (obese) Integumentary: other (L hand is wrapped) Extremities: no cyanosis, pink and warm, other (1+ generalized edema) Neurologic: normal mental status, non-focal exam Psychiatric: mood appropriate, affect normal CBC and BMP: 07/20/19 04:33 07/20/19 04:33 ABG, PT/INR, D-dimer: ABG POC ABG pH 7.462 (7.35-7.45) H 06/05/19 03:52 ABG pH 7.469 pH Units (7.350-7.450) H 06/23/19 02:00 POC ABG pCO2 39.8 (35-45) 06/05/19 03:52 ABG pCO2 39.4 mm Hg 06/23/19 02:00 POC ABG pO2 86 (80-105) 06/05/19 03:52 ABG pO2 58.7 mm Hg (80.0-90.0) L 06/23/19 02:00 POC ABG HCO3 28.4 (22-26 mml/L) 06/05/19 03:52 POC ABG Total CO2 30 (23-27mmol/L) 06/05/19 03:52 POC ABG O2 Sat 97 06/05/19 03:52 ABG O2 Saturation 94.6 % (95.0-99.0) L 06/23/19 02:00 PT/INR, D-dimer PT 15.4 Sec. (12.2-14.9) H 05/01/19 Unknown INR 1.23 (0.87-1.13) H 05/01/19 Unknown Abnormal lab findings: Abnormal Labs 05/01/19 05/01/19 05/01/19 17:50 19:26 22:36 WBC RBC Hgb Hct MCV MCH MCHC RDW Plt Count Lymph % (Auto) [place] % (Auto) Eos % (Auto) Lymph # [place] # Eos # Seg Neutrophils % Seg Neuts % (Manual) Lymphocytes % (Manual) Monocytes % (Manual) Eosinophils % (Manual) Nucleated RBC % Seg Neutrophils # Seg Neutrophils # Man Lymphocytes # (Manual) Monocytes # (Manual) Eosinophils # (Manual) PT INR APTT Fibrinogen POC ABG pH 7.272 L 7.331 L ABG pH POC ABG pCO2 52.8 H POC ABG pO2 ABG pO2 ABG HCO3 ABG O2 Saturation ABG Base Excess ABG Hemoglobin Oxyhemoglobin Sodium 136 L Potassium 6.5 H* Chloride 97.2 L Carbon Dioxide BUN 60 H Creatinine Glucose 113 H POC Glucose Uric Acid Calcium Phosphorus Magnesium 2.40 H Iron TIBC AST 139 H ALT 154 H Total Creatine Kinase CK-MB (CK-2) Troponin T NT-Pro-B Natriuret Pep Total Protein Albumin 3.8 L Triglycerides HDL Cholesterol Folate Urine WBC (Auto) Urine Creatinine Urine Total Protein Vancomycin Trough 05/01/19 05/01/19 05/01/19 Unknown Unknown Unknown WBC 16.1 H RBC Hgb Hct MCV MCH MCHC RDW 17.2 H Plt Count Lymph % (Auto) [place] % (Auto) 9.6 H Eos % (Auto) Lymph # [place] # 1.5 H Eos # Seg Neutrophils % 73.0 H Seg Neuts % (Manual) Lymphocytes % (Manual) Monocytes % (Manual) Eosinophils % (Manual) Nucleated RBC % Seg Neutrophils # 11.7 H Seg Neutrophils # Man Lymphocytes # (Manual) Monocytes # (Manual) Eosinophils # (Manual) PT 15.4 H INR 1.23 H APTT 22.7 L Fibrinogen POC ABG pH ABG pH POC ABG pCO2 POC ABG pO2 ABG pO2 ABG HCO3 ABG O2 Saturation ABG Base Excess ABG Hemoglobin Oxyhemoglobin Sodium Potassium Chloride Carbon Dioxide BUN Creatinine Glucose POC Glucose Uric Acid Calcium Phosphorus Magnesium Iron TIBC AST ALT Total Creatine Kinase CK-MB (CK-2) Troponin T NT-Pro-B Natriuret Pep 6831 H Total Protein Albumin Triglycerides HDL Cholesterol Folate Urine WBC (Auto) Urine Creatinine Urine Total Protein Vancomycin Trough 05/01/19 05/02/19 05/02/19 Unknown 00:06 00:06 WBC RBC Hgb Hct MCV MCH MCHC RDW Plt Count Lymph % (Auto) [place] % (Auto) Eos % (Auto) Lymph # [place] # Eos # Seg Neutrophils % Seg Neuts % (Manual) Lymphocytes % (Manual) Monocytes % (Manual) Eosinophils % (Manual) Nucleated RBC % Seg Neutrophils # Seg Neutrophils # Man Lymphocytes # (Manual) Monocytes # (Manual) Eosinophils # (Manual) PT INR APTT Fibrinogen POC ABG pH ABG pH POC ABG pCO2 POC ABG pO2 ABG pO2 ABG HCO3 ABG O2 Saturation ABG Base Excess ABG Hemoglobin Oxyhemoglobin Sodium Potassium Chloride Carbon Dioxide BUN Creatinine Glucose POC Glucose Uric Acid Calcium Phosphorus 4.90 H Magnesium Iron TIBC AST ALT Total Creatine Kinase 226 H CK-MB (CK-2) 5.7 H Troponin T 0.044 H NT-Pro-B Natriuret Pep Total Protein Albumin Triglycerides 182 H HDL Cholesterol 18 L Folate Urine WBC (Auto) Urine Creatinine Urine Total Protein Vancomycin Trough 05/02/19 05/02/19 05/02/19 02:08 04:40 04:41 WBC 17.6 H RBC Hgb Hct MCV MCH 27 L MCHC RDW 17.4 H Plt Count Lymph % (Auto) 10.2 L [place] % (Auto) 11.0 H Eos % (Auto) Lymph # [place] # 1.9 H Eos # Seg Neutrophils % 78.0 H Seg Neuts % (Manual) Lymphocytes % (Manual) Monocytes % (Manual) Eosinophils % (Manual) Nucleated RBC % Seg Neutrophils # 13.8 H Seg Neutrophils # Man Lymphocytes # (Manual) Monocytes # (Manual) Eosinophils # (Manual) PT INR APTT Fibrinogen POC ABG pH ABG pH POC ABG pCO2 46.8 H POC ABG pO2 63 L ABG pO2 ABG HCO3 ABG O2 Saturation ABG Base Excess ABG Hemoglobin Oxyhemoglobin Sodium Potassium Chloride 96.3 L Carbon Dioxide BUN 63 H Creatinine 1.7 H Glucose POC Glucose Uric Acid Calcium Phosphorus Magnesium Iron TIBC AST ALT Total Creatine Kinase CK-MB (CK-2) Troponin T NT-Pro-B Natriuret Pep Total Protein Albumin Triglycerides HDL Cholesterol Folate Urine WBC (Auto) Urine Creatinine Urine Total Protein Vancomycin Trough 05/02/19 05/02/19 05/02/19 04:41 04:41 16:05 WBC RBC Hgb Hct MCV MCH MCHC RDW Plt Count Lymph % (Auto) [place] % (Auto) Eos % (Auto) Lymph # [place] # Eos # Seg Neutrophils % Seg Neuts % (Manual) Lymphocytes % (Manual) Monocytes % (Manual) Eosinophils % (Manual) Nucleated RBC % Seg Neutrophils # Seg Neutrophils # Man Lymphocytes # (Manual) Monocytes # (Manual) Eosinophils # (Manual) PT INR APTT Fibrinogen POC ABG pH ABG pH POC ABG pCO2 POC ABG pO2 ABG pO2 66.6 L ABG HCO3 31.9 H ABG O2 Saturation 92.5 L ABG Base Excess 5.8 H ABG Hemoglobin 13.3 L Oxyhemoglobin 90.6 L Sodium Potassium Chloride 97.2 L Carbon Dioxide BUN 61 H Creatinine 1.8 H Glucose POC Glucose Uric Acid Calcium Phosphorus Magnesium Iron TIBC AST ALT Total Creatine Kinase CK-MB (CK-2) 5.2 H Troponin T 0.067 H D NT-Pro-B Natriuret Pep Total Protein Albumin Triglycerides HDL Cholesterol Folate Urine WBC (Auto) Urine Creatinine Urine Total Protein Vancomycin Trough 05/02/19 05/03/19 05/03/19 20:39 04:35 05:05 WBC 11.8 H RBC Hgb Hct MCV MCH 27 L MCHC 31 L RDW 17.2 H Plt Count Lymph % (Auto) [place] % (Auto) Eos % (Auto) Lymph # [place] # Eos # Seg Neutrophils % Seg Neuts % (Manual) Lymphocytes % (Manual) Monocytes % (Manual) Eosinophils % (Manual) Nucleated RBC % Seg Neutrophils # Seg Neutrophils # Man Lymphocytes # (Manual) Monocytes # (Manual) Eosinophils # (Manual) PT INR APTT Fibrinogen POC ABG pH ABG pH POC ABG pCO2 53.6 H 54.0 H POC ABG pO2 55 L 63 L ABG pO2 ABG HCO3 ABG O2 Saturation ABG Base Excess ABG Hemoglobin Oxyhemoglobin Sodium Potassium Chloride Carbon Dioxide BUN Creatinine Glucose POC Glucose Uric Acid Calcium Phosphorus Magnesium Iron TIBC AST ALT Total Creatine Kinase CK-MB (CK-2) Troponin T NT-Pro-B Natriuret Pep Total Protein Albumin Triglycerides HDL Cholesterol Folate Urine WBC (Auto) Urine Creatinine Urine Total Protein Vancomycin Trough 05/03/19 05/03/19 05/03/19 05:05 10:55 16:48 WBC RBC Hgb Hct MCV MCH MCHC RDW Plt Count Lymph % (Auto) [place] % (Auto) Eos % (Auto) Lymph # [place] # Eos # Seg Neutrophils % Seg Neuts % (Manual) Lymphocytes % (Manual) Monocytes % (Manual) Eosinophils % (Manual) Nucleated RBC % Seg Neutrophils # Seg Neutrophils # Man Lymphocytes # (Manual) Monocytes # (Manual) Eosinophils # (Manual) PT INR APTT Fibrinogen POC ABG pH 7.604 H ABG pH POC ABG pCO2 POC ABG pO2 58 L ABG pO2 ABG HCO3 ABG O2 Saturation ABG Base Excess ABG Hemoglobin Oxyhemoglobin Sodium Potassium Chloride Carbon Dioxide BUN 52 H Creatinine 1.9 H Glucose 103 H POC Glucose Uric Acid Calcium Phosphorus Magnesium Iron TIBC AST ALT Total Creatine Kinase CK-MB (CK-2) Troponin T NT-Pro-B Natriuret Pep Total Protein Albumin Triglycerides HDL Cholesterol Folate Urine WBC (Auto) 33.0 H Urine Creatinine Urine Total Protein Vancomycin Trough 05/04/19 05/04/19 05/04/19 04:49 06:50 06:50 WBC 16.0 H RBC Hgb Hct MCV MCH 27 L MCHC 31 L RDW 17.8 H Plt Count Lymph % (Auto) [place] % (Auto) Eos % (Auto) Lymph # [place] # Eos # Seg Neutrophils % Seg Neuts % (Manual) Lymphocytes % (Manual) Monocytes % (Manual) Eosinophils % (Manual) Nucleated RBC % Seg Neutrophils # Seg Neutrophils # Man Lymphocytes # (Manual) Monocytes # (Manual) Eosinophils # (Manual) PT INR APTT Fibrinogen POC ABG pH 7.273 L ABG pH POC ABG pCO2 POC ABG pO2 ABG pO2 ABG HCO3 ABG O2 Saturation ABG Base Excess ABG Hemoglobin Oxyhemoglobin Sodium 148 H Potassium 5.5 H Chloride Carbon Dioxide BUN 53 H Creatinine 3.3 H D Glucose 106 H POC Glucose Uric Acid Calcium 8.3 L Phosphorus Magnesium Iron TIBC AST ALT Total Creatine Kinase CK-MB (CK-2) Troponin T NT-Pro-B Natriuret Pep Total Protein Albumin Triglycerides HDL Cholesterol Folate Urine WBC (Auto) Urine Creatinine Urine Total Protein Vancomycin Trough 05/05/19 05/05/19 05/05/19 00:05 04:30 05:00 WBC RBC Hgb Hct MCV MCH MCHC RDW Plt Count Lymph % (Auto) [place] % (Auto) Eos % (Auto) Lymph # [place] # Eos # Seg Neutrophils % Seg Neuts % (Manual) Lymphocytes % (Manual) Monocytes % (Manual) Eosinophils % (Manual) Nucleated RBC % Seg Neutrophils # Seg Neutrophils # Man Lymphocytes # (Manual) Monocytes # (Manual) Eosinophils # (Manual) PT INR APTT Fibrinogen POC ABG pH 7.225 L ABG pH POC ABG pCO2 > 70 H POC ABG pO2 ABG pO2 ABG HCO3 ABG O2 Saturation ABG Base Excess ABG Hemoglobin Oxyhemoglobin Sodium 151 H Potassium 5.1 H Chloride Carbon Dioxide BUN 64 H Creatinine 3.5 H Glucose 117 H POC Glucose 141 H Uric Acid Calcium 7.5 L Phosphorus Magnesium Iron TIBC AST 93 H ALT 65 H Total Creatine Kinase CK-MB (CK-2) Troponin T NT-Pro-B Natriuret Pep Total Protein Albumin 2.9 L Triglycerides HDL Cholesterol Folate Urine WBC (Auto) Urine Creatinine Urine Total Protein Vancomycin Trough 05/05/19 05/05/19 05/05/19 05:00 12:02 17:46 WBC 12.0 H RBC Hgb 11.3 L Hct MCV MCH 27 L MCHC 30 L RDW 18.4 H Plt Count Lymph % (Auto) 7.9 L [place] % (Auto) 10.2 H Eos % (Auto) Lymph # 1.0 L [place] # 1.2 H Eos # Seg Neutrophils % 80.8 H Seg Neuts % (Manual) Lymphocytes % (Manual) Monocytes % (Manual) Eosinophils % (Manual) Nucleated RBC % Seg Neutrophils # 9.7 H Seg Neutrophils # Man Lymphocytes # (Manual) Monocytes # (Manual) Eosinophils # (Manual) PT INR APTT Fibrinogen POC ABG pH ABG pH POC ABG pCO2 POC ABG pO2 ABG pO2 ABG HCO3 ABG O2 Saturation ABG Base Excess ABG Hemoglobin Oxyhemoglobin Sodium Potassium Chloride Carbon Dioxide BUN Creatinine Glucose POC Glucose 125 H 112 H Uric Acid Calcium Phosphorus Magnesium Iron TIBC AST ALT Total Creatine Kinase CK-MB (CK-2) Troponin T NT-Pro-B Natriuret Pep Total Protein Albumin Triglycerides HDL Cholesterol Folate Urine WBC (Auto) Urine Creatinine Urine Total Protein Vancomycin Trough 05/05/19 05/06/19 05/06/19 23:42 03:58 04:45 WBC 11.4 H RBC Hgb 10.7 L Hct 34.2 L MCV MCH 27 L MCHC 31 L RDW 16.9 H Plt Count Lymph % (Auto) [place] % (Auto) Eos % (Auto) Lymph # [place] # Eos # Seg Neutrophils % Seg Neuts % (Manual) Lymphocytes % (Manual) Monocytes % (Manual) Eosinophils % (Manual) Nucleated RBC % Seg Neutrophils # Seg Neutrophils # Man Lymphocytes # (Manual) Monocytes # (Manual) Eosinophils # (Manual) PT INR APTT Fibrinogen POC ABG pH ABG pH POC ABG pCO2 62.4 H POC ABG pO2 111 H ABG pO2 ABG HCO3 ABG O2 Saturation ABG Base Excess ABG Hemoglobin Oxyhemoglobin Sodium Potassium Chloride Carbon Dioxide BUN Creatinine Glucose POC Glucose 128 H Uric Acid Calcium Phosphorus Magnesium Iron TIBC AST ALT Total Creatine Kinase CK-MB (CK-2) Troponin T NT-Pro-B Natriuret Pep Total Protein Albumin Triglycerides HDL Cholesterol Folate Urine WBC (Auto) Urine Creatinine Urine Total Protein Vancomycin Trough 05/06/19 05/06/19 05/06/19 04:45 05:33 12:30 WBC RBC Hgb Hct MCV MCH MCHC RDW Plt Count Lymph % (Auto) [place] % (Auto) Eos % (Auto) Lymph # [place] # Eos # Seg Neutrophils % Seg Neuts % (Manual) Lymphocytes % (Manual) Monocytes % (Manual) Eosinophils % (Manual) Nucleated RBC % Seg Neutrophils # Seg Neutrophils # Man Lymphocytes # (Manual) Monocytes # (Manual) Eosinophils # (Manual) PT INR APTT Fibrinogen POC ABG pH ABG pH POC ABG pCO2 POC ABG pO2 ABG pO2 ABG HCO3 ABG O2 Saturation ABG Base Excess ABG Hemoglobin Oxyhemoglobin Sodium 149 H Potassium Chloride Carbon Dioxide 31 H BUN 67 H Creatinine 3.2 H Glucose 125 H POC Glucose 117 H 116 H Uric Acid Calcium 7.5 L Phosphorus Magnesium Iron TIBC AST ALT Total Creatine Kinase CK-MB (CK-2) Troponin T NT-Pro-B Natriuret Pep Total Protein Albumin Triglycerides HDL Cholesterol Folate Urine WBC (Auto) Urine Creatinine Urine Total Protein Vancomycin Trough 05/06/19 05/06/19 05/07/19 18:34 23:16 05:22 WBC RBC Hgb Hct MCV MCH MCHC RDW Plt Count Lymph % (Auto) [place] % (Auto) Eos % (Auto) Lymph # [place] # Eos # Seg Neutrophils % Seg Neuts % (Manual) Lymphocytes % (Manual) Monocytes % (Manual) Eosinophils % (Manual) Nucleated RBC % Seg Neutrophils # Seg Neutrophils # Man Lymphocytes # (Manual) Monocytes # (Manual) Eosinophils # (Manual) PT INR APTT Fibrinogen POC ABG pH ABG pH POC ABG pCO2 POC ABG pO2 ABG pO2 ABG HCO3 ABG O2 Saturation ABG Base Excess ABG Hemoglobin Oxyhemoglobin Sodium Potassium Chloride Carbon Dioxide BUN Creatinine Glucose POC Glucose 128 H 143 H 166 H Uric Acid Calcium Phosphorus Magnesium Iron TIBC AST ALT Total Creatine Kinase CK-MB (CK-2) Troponin T NT-Pro-B Natriuret Pep Total Protein Albumin Triglycerides HDL Cholesterol Folate Urine WBC (Auto) Urine Creatinine Urine Total Protein Vancomycin Trough 05/07/19 05/07/19 05/07/19 06:33 07:03 09:35 WBC RBC Hgb Hct MCV MCH MCHC RDW Plt Count Lymph % (Auto) [place] % (Auto) Eos % (Auto) Lymph # [place] # Eos # Seg Neutrophils % Seg Neuts % (Manual) Lymphocytes % (Manual) Monocytes % (Manual) Eosinophils % (Manual) Nucleated RBC % Seg Neutrophils # Seg Neutrophils # Man Lymphocytes # (Manual) Monocytes # (Manual) Eosinophils # (Manual) PT INR APTT Fibrinogen POC ABG pH 7.263 L 7.288 L ABG pH POC ABG pCO2 POC ABG pO2 51 L 56 L ABG pO2 ABG HCO3 ABG O2 Saturation ABG Base Excess ABG Hemoglobin Oxyhemoglobin Sodium Potassium Chloride Carbon Dioxide BUN 76 H Creatinine 3.2 H Glucose 147 H POC Glucose Uric Acid Calcium 7.9 L Phosphorus Magnesium Iron TIBC AST ALT Total Creatine Kinase CK-MB (CK-2) Troponin T NT-Pro-B Natriuret Pep Total Protein Albumin Triglycerides HDL Cholesterol Folate Urine WBC (Auto) Urine Creatinine Urine Total Protein Vancomycin Trough 05/07/19 05/07/19 05/07/19 09:35 12:17 13:45 WBC 13.4 H RBC Hgb 11.6 L Hct MCV MCH 27 L MCHC 31 L RDW 17.5 H Plt Count Lymph % (Auto) [place] % (Auto) Eos % (Auto) Lymph # [place] # Eos # Seg Neutrophils % Seg Neuts % (Manual) Lymphocytes % (Manual) Monocytes % (Manual) Eosinophils % (Manual) Nucleated RBC % Seg Neutrophils # Seg Neutrophils # Man Lymphocytes # (Manual) Monocytes # (Manual) Eosinophils # (Manual) PT INR APTT Fibrinogen POC ABG pH ABG pH POC ABG pCO2 POC ABG pO2 ABG pO2 ABG HCO3 ABG O2 Saturation ABG Base Excess ABG Hemoglobin Oxyhemoglobin Sodium Potassium Chloride Carbon Dioxide BUN Creatinine Glucose POC Glucose 130 H Uric Acid 18.0 H Calcium Phosphorus Magnesium Iron TIBC AST ALT Total Creatine Kinase CK-MB (CK-2) Troponin T NT-Pro-B Natriuret Pep Total Protein Albumin Triglycerides HDL Cholesterol Folate Urine WBC (Auto) Urine Creatinine Urine Total Protein Vancomycin Trough 05/07/19 05/07/19 05/08/19 17:39 22:40 05:06 WBC RBC Hgb Hct MCV MCH MCHC RDW Plt Count Lymph % (Auto) [place] % (Auto) Eos % (Auto) Lymph # [place] # Eos # Seg Neutrophils % Seg Neuts % (Manual) Lymphocytes % (Manual) Monocytes % (Manual) Eosinophils % (Manual) Nucleated RBC % Seg Neutrophils # Seg Neutrophils # Man Lymphocytes # (Manual) Monocytes # (Manual) Eosinophils # (Manual) PT INR APTT Fibrinogen POC ABG pH ABG pH POC ABG pCO2 POC ABG pO2 ABG pO2 ABG HCO3 ABG O2 Saturation ABG Base Excess ABG Hemoglobin Oxyhemoglobin Sodium Potassium Chloride Carbon Dioxide BUN Creatinine Glucose POC Glucose 116 H 148 H Uric Acid Calcium Phosphorus Magnesium Iron TIBC AST ALT Total Creatine Kinase CK-MB (CK-2) Troponin T NT-Pro-B Natriuret Pep Total Protein Albumin Triglycerides HDL Cholesterol Folate Urine WBC (Auto) Urine Creatinine 292.8 H Urine Total Protein 269 H Vancomycin Trough 05/08/19 05/08/19 05/08/19 05:32 11:28 13:48 WBC RBC Hgb Hct MCV MCH MCHC RDW Plt Count Lymph % (Auto) [place] % (Auto) Eos % (Auto) Lymph # [place] # Eos # Seg Neutrophils % Seg Neuts % (Manual) Lymphocytes % (Manual) Monocytes % (Manual) Eosinophils % (Manual) Nucleated RBC % Seg Neutrophils # Seg Neutrophils # Man Lymphocytes # (Manual) Monocytes # (Manual) Eosinophils # (Manual) PT INR APTT Fibrinogen POC ABG pH ABG pH POC ABG pCO2 45.4 H POC ABG pO2 64 L ABG pO2 ABG HCO3 ABG O2 Saturation ABG Base Excess ABG Hemoglobin Oxyhemoglobin Sodium Potassium Chloride Carbon Dioxide BUN 73 H Creatinine 2.7 H Glucose 127 H POC Glucose 107 H Uric Acid Calcium 7.6 L Phosphorus Magnesium Iron TIBC AST ALT Total Creatine Kinase CK-MB (CK-2) Troponin T NT-Pro-B Natriuret Pep Total Protein Albumin Triglycerides HDL Cholesterol Folate Urine WBC (Auto) Urine Creatinine Urine Total Protein Vancomycin Trough 05/08/19 05/09/19 05/09/19 17:48 04:50 04:53 WBC RBC 3.07 L Hgb 8.5 L D Hct 29.3 L D MCV 96 H MCH MCHC 29 L RDW 18.1 H Plt Count Lymph % (Auto) [place] % (Auto) Eos % (Auto) Lymph # [place] # Eos # Seg Neutrophils % Seg Neuts % (Manual) Lymphocytes % (Manual) Monocytes % (Manual) Eosinophils % (Manual) Nucleated RBC % Seg Neutrophils # Seg Neutrophils # Man Lymphocytes # (Manual) Monocytes # (Manual) Eosinophils # (Manual) PT INR APTT Fibrinogen POC ABG pH 7.316 L ABG pH POC ABG pCO2 66.0 H POC ABG pO2 69 L ABG pO2 ABG HCO3 ABG O2 Saturation ABG Base Excess ABG Hemoglobin Oxyhemoglobin Sodium Potassium Chloride Carbon Dioxide BUN Creatinine Glucose POC Glucose 155 H Uric Acid Calcium Phosphorus Magnesium Iron TIBC AST ALT Total Creatine Kinase CK-MB (CK-2) Troponin T NT-Pro-B Natriuret Pep Total Protein Albumin Triglycerides HDL Cholesterol Folate Urine WBC (Auto) Urine Creatinine Urine Total Protein Vancomycin Trough 05/09/19 05/09/19 05/09/19 05:46 07:24 12:10 WBC RBC Hgb Hct MCV MCH MCHC RDW Plt Count Lymph % (Auto) [place] % (Auto) Eos % (Auto) Lymph # [place] # Eos # Seg Neutrophils % Seg Neuts % (Manual) Lymphocytes % (Manual) Monocytes % (Manual) Eosinophils % (Manual) Nucleated RBC % Seg Neutrophils # Seg Neutrophils # Man Lymphocytes # (Manual) Monocytes # (Manual) Eosinophils # (Manual) PT INR APTT Fibrinogen POC ABG pH ABG pH POC ABG pCO2 POC ABG pO2 ABG pO2 ABG HCO3 ABG O2 Saturation ABG Base Excess ABG Hemoglobin Oxyhemoglobin Sodium Potassium Chloride Carbon Dioxide BUN 73 H Creatinine 2.4 H Glucose 153 H POC Glucose 123 H 148 H Uric Acid Calcium 8.2 L Phosphorus Magnesium Iron TIBC AST 45 H ALT Total Creatine Kinase CK-MB (CK-2) Troponin T NT-Pro-B Natriuret Pep Total Protein 6.0 L Albumin 1.9 L Triglycerides HDL Cholesterol Folate Urine WBC (Auto) Urine Creatinine Urine Total Protein Vancomycin Trough 05/09/19 05/09/19 05/10/19 18:23 23:26 04:52 WBC RBC Hgb Hct MCV MCH MCHC RDW Plt Count Lymph % (Auto) [place] % (Auto) Eos % (Auto) Lymph # [place] # Eos # Seg Neutrophils % Seg Neuts % (Manual) Lymphocytes % (Manual) Monocytes % (Manual) Eosinophils % (Manual) Nucleated RBC % Seg Neutrophils # Seg Neutrophils # Man Lymphocytes # (Manual) Monocytes # (Manual) Eosinophils # (Manual) PT INR APTT Fibrinogen POC ABG pH 7.305 L ABG pH POC ABG pCO2 62.6 H POC ABG pO2 ABG pO2 ABG HCO3 ABG O2 Saturation ABG Base Excess ABG Hemoglobin Oxyhemoglobin Sodium Potassium Chloride Carbon Dioxide BUN Creatinine Glucose POC Glucose 147 H 121 H Uric Acid Calcium Phosphorus Magnesium Iron TIBC AST ALT Total Creatine Kinase CK-MB (CK-2) Troponin T NT-Pro-B Natriuret Pep Total Protein Albumin Triglycerides HDL Cholesterol Folate Urine WBC (Auto) Urine Creatinine Urine Total Protein Vancomycin Trough 05/10/19 05/10/19 05/10/19 05:00 05:00 05:50 WBC RBC Hgb 10.3 L Hct 33.7 L MCV MCH 27 L MCHC 31 L RDW 17.0 H Plt Count Lymph % (Auto) [place] % (Auto) Eos % (Auto) Lymph # [place] # Eos # Seg Neutrophils % Seg Neuts % (Manual) Lymphocytes % (Manual) Monocytes % (Manual) Eosinophils % (Manual) Nucleated RBC % Seg Neutrophils # Seg Neutrophils # Man Lymphocytes # (Manual) Monocytes # (Manual) Eosinophils # (Manual) PT INR APTT Fibrinogen POC ABG pH ABG pH POC ABG pCO2 POC ABG pO2 ABG pO2 ABG HCO3 ABG O2 Saturation ABG Base Excess ABG Hemoglobin Oxyhemoglobin Sodium 147 H Potassium Chloride Carbon Dioxide BUN 70 H Creatinine 2.6 H Glucose 155 H POC Glucose 158 H Uric Acid Calcium 8.2 L Phosphorus Magnesium Iron TIBC AST ALT Total Creatine Kinase CK-MB (CK-2) Troponin T NT-Pro-B Natriuret Pep Total Protein 6.1 L Albumin 2.5 L Triglycerides HDL Cholesterol Folate Urine WBC (Auto) Urine Creatinine Urine Total Protein Vancomycin Trough 05/10/19 05/11/19 05/11/19 13:14 07:26 11:40 WBC RBC Hgb Hct MCV MCH MCHC RDW Plt Count Lymph % (Auto) [place] % (Auto) Eos % (Auto) Lymph # [place] # Eos # Seg Neutrophils % Seg Neuts % (Manual) Lymphocytes % (Manual) Monocytes % (Manual) Eosinophils % (Manual) Nucleated RBC % Seg Neutrophils # Seg Neutrophils # Man Lymphocytes # (Manual) Monocytes # (Manual) Eosinophils # (Manual) PT INR APTT Fibrinogen POC ABG pH ABG pH POC ABG pCO2 48.0 H POC ABG pO2 58 L ABG pO2 ABG HCO3 ABG O2 Saturation ABG Base Excess ABG Hemoglobin Oxyhemoglobin Sodium 147 H Potassium Chloride 107.2 H Carbon Dioxide BUN 67 H Creatinine 2.6 H Glucose 121 H POC Glucose 159 H Uric Acid Calcium Phosphorus Magnesium Iron TIBC AST ALT Total Creatine Kinase CK-MB (CK-2) Troponin T NT-Pro-B Natriuret Pep Total Protein Albumin Triglycerides HDL Cholesterol Folate Urine WBC (Auto) Urine Creatinine Urine Total Protein Vancomycin Trough 05/11/19 05/11/19 05/12/19 18:13 23:46 04:40 WBC RBC Hgb Hct MCV MCH MCHC RDW Plt Count Lymph % (Auto) [place] % (Auto) Eos % (Auto) Lymph # [place] # Eos # Seg Neutrophils % Seg Neuts % (Manual) Lymphocytes % (Manual) Monocytes % (Manual) Eosinophils % (Manual) Nucleated RBC % Seg Neutrophils # Seg Neutrophils # Man Lymphocytes # (Manual) Monocytes # (Manual) Eosinophils # (Manual) PT INR APTT Fibrinogen POC ABG pH ABG pH 7.264 L POC ABG pCO2 POC ABG pO2 ABG pO2 66.8 L ABG HCO3 31.0 H ABG O2 Saturation 92.0 L ABG Base Excess ABG Hemoglobin 10.3 L Oxyhemoglobin 90.1 L Sodium Potassium Chloride Carbon Dioxide BUN Creatinine Glucose POC Glucose 120 H 121 H Uric Acid Calcium Phosphorus Magnesium Iron TIBC AST ALT Total Creatine Kinase CK-MB (CK-2) Troponin T NT-Pro-B Natriuret Pep Total Protein Albumin Triglycerides HDL Cholesterol Folate Urine WBC (Auto) Urine Creatinine Urine Total Protein Vancomycin Trough 05/12/19 05/12/19 05/12/19 04:45 04:45 11:14 WBC RBC Hgb 10.2 L Hct 32.4 L MCV MCH MCHC 31 L RDW 17.2 H Plt Count Lymph % (Auto) [place] % (Auto) Eos % (Auto) Lymph # [place] # Eos # Seg Neutrophils % Seg Neuts % (Manual) Lymphocytes % (Manual) Monocytes % (Manual) Eosinophils % (Manual) Nucleated RBC % Seg Neutrophils # Seg Neutrophils # Man Lymphocytes # (Manual) Monocytes # (Manual) Eosinophils # (Manual) PT INR APTT Fibrinogen POC ABG pH 7.284 L ABG pH POC ABG pCO2 67.8 H POC ABG pO2 ABG pO2 ABG HCO3 ABG O2 Saturation ABG Base Excess ABG Hemoglobin Oxyhemoglobin Sodium Potassium Chloride Carbon Dioxide BUN 63 H Creatinine 2.4 H Glucose 110 H POC Glucose Uric Acid Calcium Phosphorus Magnesium Iron TIBC AST ALT Total Creatine Kinase CK-MB (CK-2) Troponin T NT-Pro-B Natriuret Pep Total Protein Albumin Triglycerides HDL Cholesterol Folate Urine WBC (Auto) Urine Creatinine Urine Total Protein Vancomycin Trough 05/12/19 05/12/19 05/13/19 11:44 23:11 04:30 WBC RBC Hgb Hct MCV MCH MCHC RDW Plt Count Lymph % (Auto) [place] % (Auto) Eos % (Auto) Lymph # [place] # Eos # Seg Neutrophils % Seg Neuts % (Manual) Lymphocytes % (Manual) Monocytes % (Manual) Eosinophils % (Manual) Nucleated RBC % Seg Neutrophils # Seg Neutrophils # Man Lymphocytes # (Manual) Monocytes # (Manual) Eosinophils # (Manual) PT INR APTT Fibrinogen POC ABG pH ABG pH 7.288 L POC ABG pCO2 POC ABG pO2 ABG pO2 109.7 H ABG HCO3 30.9 H ABG O2 Saturation ABG Base Excess 3.2 H ABG Hemoglobin 9.6 L Oxyhemoglobin Sodium Potassium Chloride Carbon Dioxide BUN Creatinine Glucose POC Glucose 126 H 147 H Uric Acid Calcium Phosphorus Magnesium Iron TIBC AST ALT Total Creatine Kinase CK-MB (CK-2) Troponin T NT-Pro-B Natriuret Pep Total Protein Albumin Triglycerides HDL Cholesterol Folate Urine WBC (Auto) Urine Creatinine Urine Total Protein Vancomycin Trough 05/13/19 05/13/19 05/14/19 06:27 11:58 04:00 WBC RBC 3.16 L Hgb 9.3 L Hct 27.9 L MCV MCH MCHC RDW 17.1 H Plt Count Lymph % (Auto) [place] % (Auto) Eos % (Auto) Lymph # [place] # Eos # Seg Neutrophils % Seg Neuts % (Manual) Lymphocytes % (Manual) Monocytes % (Manual) Eosinophils % (Manual) Nucleated RBC % Seg Neutrophils # Seg Neutrophils # Man Lymphocytes # (Manual) Monocytes # (Manual) Eosinophils # (Manual) PT INR APTT Fibrinogen POC ABG pH ABG pH POC ABG pCO2 POC ABG pO2 ABG pO2 ABG HCO3 ABG O2 Saturation ABG Base Excess ABG Hemoglobin Oxyhemoglobin Sodium Potassium Chloride Carbon Dioxide BUN Creatinine Glucose POC Glucose 113 H 130 H Uric Acid Calcium Phosphorus Magnesium Iron TIBC AST ALT Total Creatine Kinase CK-MB (CK-2) Troponin T NT-Pro-B Natriuret Pep Total Protein Albumin Triglycerides HDL Cholesterol Folate Urine WBC (Auto) Urine Creatinine Urine Total Protein Vancomycin Trough 05/14/19 05/14/19 05/14/19 04:00 04:34 05:32 WBC RBC Hgb Hct MCV MCH MCHC RDW Plt Count Lymph % (Auto) [place] % (Auto) Eos % (Auto) Lymph # [place] # Eos # Seg Neutrophils % Seg Neuts % (Manual) Lymphocytes % (Manual) Monocytes % (Manual) Eosinophils % (Manual) Nucleated RBC % Seg Neutrophils # Seg Neutrophils # Man Lymphocytes # (Manual) Monocytes # (Manual) Eosinophils # (Manual) PT INR APTT Fibrinogen POC ABG pH 7.328 L ABG pH POC ABG pCO2 61.7 H POC ABG pO2 ABG pO2 ABG HCO3 ABG O2 Saturation ABG Base Excess ABG Hemoglobin Oxyhemoglobin Sodium 135 L D Potassium Chloride Carbon Dioxide BUN 57 H Creatinine 2.2 H Glucose 115 H POC Glucose 115 H Uric Acid Calcium 8.1 L Phosphorus Magnesium Iron TIBC AST ALT Total Creatine Kinase CK-MB (CK-2) Troponin T NT-Pro-B Natriuret Pep Total Protein Albumin Triglycerides HDL Cholesterol Folate Urine WBC (Auto) Urine Creatinine Urine Total Protein Vancomycin Trough 05/14/19 05/15/19 05/15/19 12:11 05:10 05:24 WBC RBC Hgb Hct MCV MCH MCHC RDW Plt Count Lymph % (Auto) [place] % (Auto) Eos % (Auto) Lymph # [place] # Eos # Seg Neutrophils % Seg Neuts % (Manual) Lymphocytes % (Manual) Monocytes % (Manual) Eosinophils % (Manual) Nucleated RBC % Seg Neutrophils # Seg Neutrophils # Man Lymphocytes # (Manual) Monocytes # (Manual) Eosinophils # (Manual) PT INR APTT Fibrinogen POC ABG pH ABG pH 7.342 L POC ABG pCO2 POC ABG pO2 ABG pO2 79.1 L ABG HCO3 28.2 H ABG O2 Saturation ABG Base Excess ABG Hemoglobin 7.0 L Oxyhemoglobin 94.4 L Sodium Potassium Chloride Carbon Dioxide BUN Creatinine Glucose POC Glucose 110 H 116 H Uric Acid Calcium Phosphorus Magnesium Iron TIBC AST ALT Total Creatine Kinase CK-MB (CK-2) Troponin T NT-Pro-B Natriuret Pep Total Protein Albumin Triglycerides HDL Cholesterol Folate Urine WBC (Auto) Urine Creatinine Urine Total Protein Vancomycin Trough 05/15/19 05/15/19 05/16/19 09:00 18:12 04:50 WBC RBC Hgb Hct MCV MCH MCHC RDW Plt Count Lymph % (Auto) [place] % (Auto) Eos % (Auto) Lymph # [place] # Eos # Seg Neutrophils % Seg Neuts % (Manual) Lymphocytes % (Manual) Monocytes % (Manual) Eosinophils % (Manual) Nucleated RBC % Seg Neutrophils # Seg Neutrophils # Man Lymphocytes # (Manual) Monocytes # (Manual) Eosinophils # (Manual) PT INR APTT Fibrinogen POC ABG pH ABG pH 7.250 L POC ABG pCO2 POC ABG pO2 ABG pO2 76.4 L ABG HCO3 ABG O2 Saturation 94.6 L ABG Base Excess -3.1 L ABG Hemoglobin 9.7 L Oxyhemoglobin 92.4 L Sodium Potassium Chloride Carbon Dioxide BUN Creatinine Glucose POC Glucose 110 H Uric Acid Calcium Phosphorus Magnesium Iron TIBC AST ALT Total Creatine Kinase CK-MB (CK-2) Troponin T NT-Pro-B Natriuret Pep Total Protein Albumin Triglycerides HDL Cholesterol Folate Urine WBC (Auto) Urine Creatinine Urine Total Protein Vancomycin Trough 20.5 H 05/16/19 05/16/19 05/17/19 05:50 05:50 04:20 WBC RBC 3.36 L 3.44 L Hgb 9.4 L 9.3 L Hct 29.1 L 29.7 L MCV MCH 27 L MCHC 31 L RDW 17.6 H 17.6 H Plt Count Lymph % (Auto) [place] % (Auto) Eos % (Auto) Lymph # [place] # Eos # Seg Neutrophils % Seg Neuts % (Manual) 77.0 H Lymphocytes % (Manual) 5.0 L Monocytes % (Manual) Eosinophils % (Manual) 10.0 H Nucleated RBC % Seg Neutrophils # Seg Neutrophils # Man Lymphocytes # (Manual) 0.5 L Monocytes # (Manual) Eosinophils # (Manual) 0.9 H PT INR APTT Fibrinogen POC ABG pH ABG pH POC ABG pCO2 POC ABG pO2 ABG pO2 ABG HCO3 ABG O2 Saturation ABG Base Excess ABG Hemoglobin Oxyhemoglobin Sodium Potassium Chloride Carbon Dioxide BUN 83 H Creatinine 4.4 H D Glucose 118 H POC Glucose Uric Acid Calcium Phosphorus Magnesium Iron TIBC AST ALT Total Creatine Kinase CK-MB (CK-2) Troponin T NT-Pro-B Natriuret Pep Total Protein Albumin Triglycerides HDL Cholesterol Folate Urine WBC (Auto) Urine Creatinine Urine Total Protein Vancomycin Trough 05/17/19 05/17/19 05/18/19 04:30 Unknown 01:50 WBC RBC 3.49 L Hgb 9.4 L Hct 30.0 L MCV MCH 27 L MCHC 31 L RDW 17.8 H Plt Count Lymph % (Auto) 7.9 L [place] % (Auto) 15.4 H Eos % (Auto) 6.3 H Lymph # 0.7 L [place] # 1.4 H Eos # 0.6 H Seg Neutrophils % 70.2 H Seg Neuts % (Manual) Lymphocytes % (Manual) Monocytes % (Manual) Eosinophils % (Manual) Nucleated RBC % Seg Neutrophils # Seg Neutrophils # Man Lymphocytes # (Manual) Monocytes # (Manual) Eosinophils # (Manual) PT INR APTT Fibrinogen POC ABG pH ABG pH 7.272 L POC ABG pCO2 POC ABG pO2 ABG pO2 75.7 L ABG HCO3 ABG O2 Saturation 93.8 L ABG Base Excess -3.0 L ABG Hemoglobin 7.8 L Oxyhemoglobin 91.6 L Sodium Potassium 5.2 H Chloride Carbon Dioxide BUN 96 H Creatinine 5.7 H Glucose 112 H POC Glucose Uric Acid Calcium Phosphorus Magnesium Iron TIBC AST ALT Total Creatine Kinase CK-MB (CK-2) Troponin T NT-Pro-B Natriuret Pep Total Protein Albumin Triglycerides 173 H HDL Cholesterol Folate Urine WBC (Auto) Urine Creatinine Urine Total Protein Vancomycin Trough 05/18/19 05/18/19 05/18/19 01:50 04:41 05:24 WBC RBC Hgb Hct MCV MCH MCHC RDW Plt Count Lymph % (Auto) [place] % (Auto) Eos % (Auto) Lymph # [place] # Eos # Seg Neutrophils % Seg Neuts % (Manual) Lymphocytes % (Manual) Monocytes % (Manual) Eosinophils % (Manual) Nucleated RBC % Seg Neutrophils # Seg Neutrophils # Man Lymphocytes # (Manual) Monocytes # (Manual) Eosinophils # (Manual) PT INR APTT Fibrinogen POC ABG pH 7.260 L ABG pH POC ABG pCO2 54.9 H POC ABG pO2 ABG pO2 ABG HCO3 ABG O2 Saturation ABG Base Excess ABG Hemoglobin Oxyhemoglobin Sodium Potassium 5.6 H Chloride Carbon Dioxide BUN 104 H Creatinine 6.6 H Glucose 107 H POC Glucose 106 H Uric Acid Calcium Phosphorus Magnesium Iron TIBC AST ALT Total Creatine Kinase CK-MB (CK-2) Troponin T NT-Pro-B Natriuret Pep Total Protein Albumin Triglycerides HDL Cholesterol Folate Urine WBC (Auto) Urine Creatinine Urine Total Protein Vancomycin Trough 05/18/19 05/18/19 05/19/19 11:34 23:26 04:06 WBC RBC 3.22 L Hgb 8.8 L Hct 27.3 L MCV MCH 27 L MCHC RDW 17.5 H Plt Count Lymph % (Auto) [place] % (Auto) Eos % (Auto) Lymph # [place] # Eos # Seg Neutrophils % Seg Neuts % (Manual) 74.0 H Lymphocytes % (Manual) 4.0 L Monocytes % (Manual) 11.0 H Eosinophils % (Manual) 7.0 H Nucleated RBC % 1.0 H Seg Neutrophils # Seg Neutrophils # Man Lymphocytes # (Manual) 0.3 L Monocytes # (Manual) 0.9 H Eosinophils # (Manual) 0.6 H PT INR APTT Fibrinogen POC ABG pH ABG pH POC ABG pCO2 POC ABG pO2 ABG pO2 ABG HCO3 ABG O2 Saturation ABG Base Excess ABG Hemoglobin Oxyhemoglobin Sodium Potassium Chloride Carbon Dioxide BUN Creatinine Glucose POC Glucose 152 H 112 H Uric Acid Calcium Phosphorus Magnesium Iron TIBC AST ALT Total Creatine Kinase CK-MB (CK-2) Troponin T NT-Pro-B Natriuret Pep Total Protein Albumin Triglycerides HDL Cholesterol Folate Urine WBC (Auto) Urine Creatinine Urine Total Protein Vancomycin Trough 05/19/19 05/19/19 05/20/19 04:06 06:00 04:00 WBC RBC 3.40 L Hgb 9.2 L Hct 28.6 L MCV MCH 27 L MCHC RDW 17.6 H Plt Count Lymph % (Auto) [place] % (Auto) Eos % (Auto) Lymph # [place] # Eos # Seg Neutrophils % Seg Neuts % (Manual) Lymphocytes % (Manual) 11.0 L Monocytes % (Manual) Eosinophils % (Manual) 14.0 H Nucleated RBC % Seg Neutrophils # Seg Neutrophils # Man Lymphocytes # (Manual) 1.1 L Monocytes # (Manual) Eosinophils # (Manual) 1.4 H PT INR APTT Fibrinogen POC ABG pH ABG pH 7.315 L POC ABG pCO2 POC ABG pO2 ABG pO2 ABG HCO3 ABG O2 Saturation ABG Base Excess ABG Hemoglobin 6.7 L Oxyhemoglobin 94.1 L Sodium Potassium 5.2 H Chloride Carbon Dioxide 21 L BUN 110 H Creatinine 7.2 H Glucose POC Glucose Uric Acid Calcium 8.3 L Phosphorus Magnesium Iron TIBC AST ALT Total Creatine Kinase CK-MB (CK-2) Troponin T NT-Pro-B Natriuret Pep Total Protein Albumin Triglycerides HDL Cholesterol Folate Urine WBC (Auto) Urine Creatinine Urine Total Protein Vancomycin Trough 05/20/19 05/20/19 05/20/19 04:00 05:48 12:00 WBC RBC Hgb Hct MCV MCH MCHC RDW Plt Count Lymph % (Auto) [place] % (Auto) Eos % (Auto) Lymph # [place] # Eos # Seg Neutrophils % Seg Neuts % (Manual) Lymphocytes % (Manual) Monocytes % (Manual) Eosinophils % (Manual) Nucleated RBC % Seg Neutrophils # Seg Neutrophils # Man Lymphocytes # (Manual) Monocytes # (Manual) Eosinophils # (Manual) PT INR APTT Fibrinogen POC ABG pH ABG pH 7.281 L POC ABG pCO2 POC ABG pO2 ABG pO2 78.7 L ABG HCO3 ABG O2 Saturation 94.5 L ABG Base Excess -3.0 L ABG Hemoglobin 9.9 L Oxyhemoglobin 92.5 L Sodium 136 L Potassium 5.7 H Chloride 96.3 L Carbon Dioxide BUN 125 H Creatinine 8.3 H Glucose 106 H POC Glucose Uric Acid Calcium Phosphorus Magnesium Iron TIBC AST ALT Total Creatine Kinase CK-MB (CK-2) Troponin T NT-Pro-B Natriuret Pep Total Protein Albumin Triglycerides HDL Cholesterol Folate Urine WBC (Auto) 26.0 H Urine Creatinine Urine Total Protein Vancomycin Trough 05/21/19 05/21/19 05/21/19 04:33 05:20 Unknown WBC RBC 3.38 L Hgb 9.1 L Hct 28.5 L MCV MCH 27 L MCHC RDW 17.4 H Plt Count Lymph % (Auto) [place] % (Auto) Eos % (Auto) Lymph # [place] # Eos # Seg Neutrophils % Seg Neuts % (Manual) 71.0 H Lymphocytes % (Manual) 1.0 L Monocytes % (Manual) 11.0 H Eosinophils % (Manual) 6.0 H Nucleated RBC % Seg Neutrophils # Seg Neutrophils # Man Lymphocytes # (Manual) 0.1 L Monocytes # (Manual) 1.0 H Eosinophils # (Manual) 0.6 H PT INR APTT Fibrinogen POC ABG pH 7.315 L ABG pH POC ABG pCO2 57.8 H POC ABG pO2 68 L ABG pO2 ABG HCO3 ABG O2 Saturation ABG Base Excess ABG Hemoglobin Oxyhemoglobin Sodium Potassium Chloride 96.3 L Carbon Dioxide BUN 102 H Creatinine 7.0 H Glucose 103 H POC Glucose Uric Acid Calcium Phosphorus Magnesium Iron TIBC AST ALT Total Creatine Kinase CK-MB (CK-2) Troponin T NT-Pro-B Natriuret Pep Total Protein Albumin Triglycerides HDL Cholesterol Folate Urine WBC (Auto) Urine Creatinine Urine Total Protein Vancomycin Trough 05/22/19 05/22/19 05/22/19 03:54 06:25 06:25 WBC RBC 3.22 L Hgb 8.6 L Hct 27.0 L MCV MCH 27 L MCHC RDW 17.5 H Plt Count Lymph % (Auto) [place] % (Auto) 16.2 H Eos % (Auto) 10.8 H Lymph # [place] # 1.3 H Eos # 0.9 H Seg Neutrophils % Seg Neuts % (Manual) Lymphocytes % (Manual) 10.0 L Monocytes % (Manual) 13.0 H Eosinophils % (Manual) 8.0 H Nucleated RBC % Seg Neutrophils # Seg Neutrophils # Man Lymphocytes # (Manual) 0.9 L Monocytes # (Manual) 1.1 H Eosinophils # (Manual) 0.7 H PT INR APTT Fibrinogen POC ABG pH 7.313 L ABG pH POC ABG pCO2 55.0 H POC ABG pO2 ABG pO2 ABG HCO3 ABG O2 Saturation ABG Base Excess ABG Hemoglobin Oxyhemoglobin Sodium 135 L Potassium Chloride 94.3 L Carbon Dioxide BUN 117 H Creatinine 7.8 H Glucose POC Glucose Uric Acid Calcium 8.2 L Phosphorus Magnesium Iron TIBC AST ALT Total Creatine Kinase CK-MB (CK-2) Troponin T NT-Pro-B Natriuret Pep Total Protein Albumin Triglycerides HDL Cholesterol Folate Urine WBC (Auto) Urine Creatinine Urine Total Protein Vancomycin Trough 05/23/19 05/24/19 05/24/19 05:21 05:00 05:00 WBC RBC 3.18 L Hgb 8.5 L Hct 26.7 L MCV MCH 27 L MCHC RDW 17.9 H Plt Count Lymph % (Auto) [place] % (Auto) Eos % (Auto) Lymph # [place] # Eos # Seg Neutrophils % Seg Neuts % (Manual) Lymphocytes % (Manual) Monocytes % (Manual) Eosinophils % (Manual) Nucleated RBC % Seg Neutrophils # Seg Neutrophils # Man Lymphocytes # (Manual) Monocytes # (Manual) Eosinophils # (Manual) PT INR APTT Fibrinogen POC ABG pH ABG pH POC ABG pCO2 49.7 H POC ABG pO2 73 L ABG pO2 ABG HCO3 ABG O2 Saturation ABG Base Excess ABG Hemoglobin Oxyhemoglobin Sodium Potassium Chloride 95.7 L Carbon Dioxide BUN 97 H Creatinine 6.5 H Glucose POC Glucose Uric Acid Calcium 8.0 L Phosphorus Magnesium Iron TIBC AST ALT Total Creatine Kinase CK-MB (CK-2) Troponin T NT-Pro-B Natriuret Pep Total Protein Albumin Triglycerides HDL Cholesterol Folate Urine WBC (Auto) Urine Creatinine Urine Total Protein Vancomycin Trough 05/24/19 05/25/19 05/25/19 06:17 04:22 15:45 WBC RBC 2.98 L Hgb 8.1 L Hct 24.9 L MCV MCH 27 L MCHC RDW 17.8 H Plt Count Lymph % (Auto) [place] % (Auto) Eos % (Auto) Lymph # [place] # Eos # Seg Neutrophils % Seg Neuts % (Manual) Lymphocytes % (Manual) Monocytes % (Manual) Eosinophils % (Manual) Nucleated RBC % Seg Neutrophils # Seg Neutrophils # Man Lymphocytes # (Manual) Monocytes # (Manual) Eosinophils # (Manual) PT INR APTT Fibrinogen POC ABG pH 7.330 L 7.313 L ABG pH POC ABG pCO2 52.5 H 51.1 H POC ABG pO2 77 L ABG pO2 ABG HCO3 ABG O2 Saturation ABG Base Excess ABG Hemoglobin Oxyhemoglobin Sodium Potassium Chloride Carbon Dioxide BUN Creatinine Glucose POC Glucose Uric Acid Calcium Phosphorus Magnesium Iron TIBC AST ALT Total Creatine Kinase CK-MB (CK-2) Troponin T NT-Pro-B Natriuret Pep Total Protein Albumin Triglycerides HDL Cholesterol Folate Urine WBC (Auto) Urine Creatinine Urine Total Protein Vancomycin Trough 05/25/19 05/26/19 05/26/19 15:45 04:13 05:00 WBC RBC 3.10 L Hgb 8.4 L Hct 26.0 L MCV MCH 27 L MCHC RDW 17.4 H Plt Count Lymph % (Auto) [place] % (Auto) Eos % (Auto) Lymph # [place] # Eos # Seg Neutrophils % Seg Neuts % (Manual) Lymphocytes % (Manual) Monocytes % (Manual) Eosinophils % (Manual) Nucleated RBC % Seg Neutrophils # Seg Neutrophils # Man Lymphocytes # (Manual) Monocytes # (Manual) Eosinophils # (Manual) PT INR APTT Fibrinogen POC ABG pH 7.295 L ABG pH POC ABG pCO2 56.5 H POC ABG pO2 63 L ABG pO2 ABG HCO3 ABG O2 Saturation ABG Base Excess ABG Hemoglobin Oxyhemoglobin Sodium 136 L Potassium Chloride 96.8 L Carbon Dioxide BUN 83 H Creatinine 5.9 H Glucose POC Glucose Uric Acid Calcium 7.6 L Phosphorus Magnesium Iron TIBC AST ALT Total Creatine Kinase CK-MB (CK-2) Troponin T NT-Pro-B Natriuret Pep Total Protein Albumin Triglycerides HDL Cholesterol Folate Urine WBC (Auto) Urine Creatinine Urine Total Protein Vancomycin Trough 05/26/19 05/27/19 05/28/19 05:00 04:48 04:47 WBC RBC Hgb Hct MCV MCH MCHC RDW Plt Count Lymph % (Auto) [place] % (Auto) Eos % (Auto) Lymph # [place] # Eos # Seg Neutrophils % Seg Neuts % (Manual) Lymphocytes % (Manual) Monocytes % (Manual) Eosinophils % (Manual) Nucleated RBC % Seg Neutrophils # Seg Neutrophils # Man Lymphocytes # (Manual) Monocytes # (Manual) Eosinophils # (Manual) PT INR APTT Fibrinogen POC ABG pH 7.323 L ABG pH 7.284 L POC ABG pCO2 56.2 H POC ABG pO2 ABG pO2 71.6 L ABG HCO3 ABG O2 Saturation 92.0 L ABG Base Excess ABG Hemoglobin 7.7 L Oxyhemoglobin 89.9 L Sodium 136 L Potassium Chloride 95.3 L Carbon Dioxide BUN 96 H Creatinine 6.5 H Glucose 108 H POC Glucose Uric Acid Calcium 7.6 L Phosphorus Magnesium Iron TIBC AST ALT Total Creatine Kinase CK-MB (CK-2) Troponin T NT-Pro-B Natriuret Pep Total Protein Albumin Triglycerides HDL Cholesterol Folate Urine WBC (Auto) Urine Creatinine Urine Total Protein Vancomycin Trough 05/28/19 05/29/19 05/29/19 12:30 12:47 23:44 WBC RBC Hgb Hct MCV MCH MCHC RDW Plt Count Lymph % (Auto) [place] % (Auto) Eos % (Auto) Lymph # [place] # Eos # Seg Neutrophils % Seg Neuts % (Manual) Lymphocytes % (Manual) Monocytes % (Manual) Eosinophils % (Manual) Nucleated RBC % Seg Neutrophils # Seg Neutrophils # Man Lymphocytes # (Manual) Monocytes # (Manual) Eosinophils # (Manual) PT INR APTT Fibrinogen POC ABG pH ABG pH POC ABG pCO2 POC ABG pO2 ABG pO2 ABG HCO3 ABG O2 Saturation ABG Base Excess ABG Hemoglobin Oxyhemoglobin Sodium 135 L Potassium Chloride 95.3 L Carbon Dioxide BUN 82 H Creatinine 6.0 H Glucose POC Glucose 136 H 159 H Uric Acid Calcium 7.5 L Phosphorus Magnesium Iron TIBC AST ALT Total Creatine Kinase CK-MB (CK-2) Troponin T NT-Pro-B Natriuret Pep Total Protein Albumin Triglycerides HDL Cholesterol Folate Urine WBC (Auto) Urine Creatinine Urine Total Protein Vancomycin Trough 05/30/19 05/30/19 05/30/19 04:30 05:38 12:00 WBC RBC 3.01 L Hgb 8.2 L Hct 25.3 L MCV MCH 27 L MCHC RDW 17.5 H Plt Count Lymph % (Auto) [place] % (Auto) Eos % (Auto) Lymph # [place] # Eos # Seg Neutrophils % Seg Neuts % (Manual) 80.0 H Lymphocytes % (Manual) 10.0 L Monocytes % (Manual) Eosinophils % (Manual) Nucleated RBC % Seg Neutrophils # Seg Neutrophils # Man 8.0 H Lymphocytes # (Manual) 1.0 L Monocytes # (Manual) Eosinophils # (Manual) PT INR APTT Fibrinogen POC ABG pH ABG pH POC ABG pCO2 POC ABG pO2 73 L ABG pO2 ABG HCO3 ABG O2 Saturation ABG Base Excess ABG Hemoglobin Oxyhemoglobin Sodium Potassium Chloride Carbon Dioxide BUN Creatinine Glucose POC Glucose 166 H Uric Acid Calcium Phosphorus Magnesium Iron TIBC AST ALT Total Creatine Kinase CK-MB (CK-2) Troponin T NT-Pro-B Natriuret Pep Total Protein Albumin Triglycerides HDL Cholesterol Folate Urine WBC (Auto) Urine Creatinine Urine Total Protein Vancomycin Trough 05/30/19 05/31/19 05/31/19 23:45 04:07 13:04 WBC 14.3 H RBC 2.88 L Hgb 7.7 L Hct 23.9 L MCV 83 L MCH 27 L MCHC RDW 17.8 H Plt Count Lymph % (Auto) [place] % (Auto) Eos % (Auto) Lymph # [place] # Eos # Seg Neutrophils % Seg Neuts % (Manual) 83.0 H Lymphocytes % (Manual) 11.0 L Monocytes % (Manual) Eosinophils % (Manual) Nucleated RBC % Seg Neutrophils # Seg Neutrophils # Man 11.9 H Lymphocytes # (Manual) Monocytes # (Manual) 0.9 H Eosinophils # (Manual) PT INR APTT Fibrinogen POC ABG pH ABG pH POC ABG pCO2 47.4 H POC ABG pO2 ABG pO2 ABG HCO3 ABG O2 Saturation ABG Base Excess ABG Hemoglobin Oxyhemoglobin Sodium Potassium Chloride Carbon Dioxide BUN Creatinine Glucose POC Glucose 209 H Uric Acid Calcium Phosphorus Magnesium Iron TIBC AST ALT Total Creatine Kinase CK-MB (CK-2) Troponin T NT-Pro-B Natriuret Pep Total Protein Albumin Triglycerides HDL Cholesterol Folate Urine WBC (Auto) Urine Creatinine Urine Total Protein Vancomycin Trough 05/31/19 05/31/19 06/01/19 13:04 16:42 00:15 WBC RBC Hgb Hct MCV MCH MCHC RDW Plt Count Lymph % (Auto) [place] % (Auto) Eos % (Auto) Lymph # [place] # Eos # Seg Neutrophils % Seg Neuts % (Manual) Lymphocytes % (Manual) Monocytes % (Manual) Eosinophils % (Manual) Nucleated RBC % Seg Neutrophils # Seg Neutrophils # Man Lymphocytes # (Manual) Monocytes # (Manual) Eosinophils # (Manual) PT INR APTT Fibrinogen POC ABG pH ABG pH POC ABG pCO2 POC ABG pO2 ABG pO2 ABG HCO3 ABG O2 Saturation ABG Base Excess ABG Hemoglobin Oxyhemoglobin Sodium 129 L Potassium Chloride 88.6 L Carbon Dioxide 19 L BUN 117 H Creatinine 6.7 H Glucose 205 H POC Glucose 228 H 223 H Uric Acid Calcium 7.4 L Phosphorus 7.40 H Magnesium Iron TIBC AST 58 H ALT 149 H Total Creatine Kinase CK-MB (CK-2) Troponin T NT-Pro-B Natriuret Pep Total Protein 6.0 L Albumin 2.5 L Triglycerides HDL Cholesterol Folate Urine WBC (Auto) Urine Creatinine Urine Total Protein Vancomycin Trough 06/01/19 06/01/19 06/01/19 04:33 05:27 12:31 WBC RBC Hgb Hct MCV MCH MCHC RDW Plt Count Lymph % (Auto) [place] % (Auto) Eos % (Auto) Lymph # [place] # Eos # Seg Neutrophils % Seg Neuts % (Manual) Lymphocytes % (Manual) Monocytes % (Manual) Eosinophils % (Manual) Nucleated RBC % Seg Neutrophils # Seg Neutrophils # Man Lymphocytes # (Manual) Monocytes # (Manual) Eosinophils # (Manual) PT INR APTT Fibrinogen POC ABG pH ABG pH POC ABG pCO2 POC ABG pO2 ABG pO2 56.9 L ABG HCO3 ABG O2 Saturation 85.9 L ABG Base Excess ABG Hemoglobin 8.1 L Oxyhemoglobin 83.6 L Sodium Potassium Chloride Carbon Dioxide BUN Creatinine Glucose POC Glucose 183 H 217 H Uric Acid Calcium Phosphorus Magnesium Iron TIBC AST ALT Total Creatine Kinase CK-MB (CK-2) Troponin T NT-Pro-B Natriuret Pep Total Protein Albumin Triglycerides HDL Cholesterol Folate Urine WBC (Auto) Urine Creatinine Urine Total Protein Vancomycin Trough 06/01/19 06/02/19 06/02/19 18:20 00:00 05:33 WBC RBC Hgb Hct MCV MCH MCHC RDW Plt Count Lymph % (Auto) [place] % (Auto) Eos % (Auto) Lymph # [place] # Eos # Seg Neutrophils % Seg Neuts % (Manual) Lymphocytes % (Manual) Monocytes % (Manual) Eosinophils % (Manual) Nucleated RBC % Seg Neutrophils # Seg Neutrophils # Man Lymphocytes # (Manual) Monocytes # (Manual) Eosinophils # (Manual) PT INR APTT Fibrinogen POC ABG pH ABG pH POC ABG pCO2 POC ABG pO2 ABG pO2 ABG HCO3 ABG O2 Saturation ABG Base Excess ABG Hemoglobin Oxyhemoglobin Sodium Potassium Chloride Carbon Dioxide BUN Creatinine Glucose POC Glucose 265 H 279 H 259 H Uric Acid Calcium Phosphorus Magnesium Iron TIBC AST ALT Total Creatine Kinase CK-MB (CK-2) Troponin T NT-Pro-B Natriuret Pep Total Protein Albumin Triglycerides HDL Cholesterol Folate Urine WBC (Auto) Urine Creatinine Urine Total Protein Vancomycin Trough 06/02/19 06/02/19 06/02/19 11:06 11:06 11:42 WBC 13.1 H RBC 2.92 L Hgb 7.9 L Hct 24.4 L MCV MCH 27 L MCHC RDW 17.4 H Plt Count Lymph % (Auto) [place] % (Auto) Eos % (Auto) Lymph # [place] # Eos # Seg Neutrophils % Seg Neuts % (Manual) 78.0 H Lymphocytes % (Manual) 12.0 L Monocytes % (Manual) 10.0 H Eosinophils % (Manual) Nucleated RBC % Seg Neutrophils # Seg Neutrophils # Man 10.2 H Lymphocytes # (Manual) Monocytes # (Manual) 1.3 H Eosinophils # (Manual) PT INR APTT Fibrinogen POC ABG pH ABG pH POC ABG pCO2 POC ABG pO2 ABG pO2 ABG HCO3 ABG O2 Saturation ABG Base Excess ABG Hemoglobin Oxyhemoglobin Sodium 135 L Potassium Chloride 94.7 L Carbon Dioxide 21 L BUN 107 H Creatinine 4.5 H Glucose 286 H POC Glucose 263 H Uric Acid Calcium 7.9 L Phosphorus 6.30 H Magnesium Iron TIBC AST ALT 104 H Total Creatine Kinase CK-MB (CK-2) Troponin T NT-Pro-B Natriuret Pep Total Protein 6.0 L Albumin 2.7 L Triglycerides HDL Cholesterol Folate Urine WBC (Auto) Urine Creatinine Urine Total Protein Vancomycin Trough 06/02/19 06/02/19 06/03/19 18:17 23:55 05:30 WBC RBC Hgb Hct MCV MCH MCHC RDW Plt Count Lymph % (Auto) [place] % (Auto) Eos % (Auto) Lymph # [place] # Eos # Seg Neutrophils % Seg Neuts % (Manual) Lymphocytes % (Manual) Monocytes % (Manual) Eosinophils % (Manual) Nucleated RBC % Seg Neutrophils # Seg Neutrophils # Man Lymphocytes # (Manual) Monocytes # (Manual) Eosinophils # (Manual) PT INR APTT Fibrinogen POC ABG pH ABG pH POC ABG pCO2 POC ABG pO2 ABG pO2 ABG HCO3 ABG O2 Saturation ABG Base Excess ABG Hemoglobin Oxyhemoglobin Sodium Potassium Chloride 95.1 L Carbon Dioxide 21 L BUN 119 H Creatinine 4.1 H Glucose 330 H POC Glucose 276 H 244 H Uric Acid Calcium 8.1 L Phosphorus Magnesium Iron TIBC AST ALT 98 H Total Creatine Kinase CK-MB (CK-2) Troponin T NT-Pro-B Natriuret Pep Total Protein 5.8 L Albumin 2.8 L Triglycerides HDL Cholesterol Folate Urine WBC (Auto) Urine Creatinine Urine Total Protein Vancomycin Trough 06/03/19 06/03/19 06/03/19 05:30 06:04 09:42 WBC 12.8 H RBC 3.01 L Hgb 8.2 L Hct 25.4 L MCV MCH 27 L MCHC RDW 17.5 H Plt Count Lymph % (Auto) [place] % (Auto) Eos % (Auto) Lymph # [place] # Eos # Seg Neutrophils % Seg Neuts % (Manual) 78.0 H Lymphocytes % (Manual) 10.0 L Monocytes % (Manual) 12.0 H Eosinophils % (Manual) Nucleated RBC % Seg Neutrophils # Seg Neutrophils # Man 10.0 H Lymphocytes # (Manual) Monocytes # (Manual) 1.5 H Eosinophils # (Manual) PT INR APTT Fibrinogen POC ABG pH ABG pH POC ABG pCO2 POC ABG pO2 ABG pO2 ABG HCO3 ABG O2 Saturation ABG Base Excess ABG Hemoglobin Oxyhemoglobin Sodium Potassium Chloride Carbon Dioxide BUN 106 H Creatinine Glucose POC Glucose 254 H Uric Acid Calcium Phosphorus Magnesium Iron TIBC AST ALT Total Creatine Kinase CK-MB (CK-2) Troponin T NT-Pro-B Natriuret Pep Total Protein Albumin Triglycerides HDL Cholesterol Folate Urine WBC (Auto) Urine Creatinine Urine Total Protein Vancomycin Trough 06/03/19 06/03/19 06/03/19 12:52 17:25 23:37 WBC RBC Hgb Hct MCV MCH MCHC RDW Plt Count Lymph % (Auto) [place] % (Auto) Eos % (Auto) Lymph # [place] # Eos # Seg Neutrophils % Seg Neuts % (Manual) Lymphocytes % (Manual) Monocytes % (Manual) Eosinophils % (Manual) Nucleated RBC % Seg Neutrophils # Seg Neutrophils # Man Lymphocytes # (Manual) Monocytes # (Manual) Eosinophils # (Manual) PT INR APTT Fibrinogen POC ABG pH ABG pH POC ABG pCO2 POC ABG pO2 ABG pO2 ABG HCO3 ABG O2 Saturation ABG Base Excess ABG Hemoglobin Oxyhemoglobin Sodium Potassium Chloride Carbon Dioxide BUN Creatinine Glucose POC Glucose 274 H 285 H 310 H Uric Acid Calcium Phosphorus Magnesium Iron TIBC AST ALT Total Creatine Kinase CK-MB (CK-2) Troponin T NT-Pro-B Natriuret Pep Total Protein Albumin Triglycerides HDL Cholesterol Folate Urine WBC (Auto) Urine Creatinine Urine Total Protein Vancomycin Trough 06/04/19 06/04/19 06/04/19 04:57 05:03 11:50 WBC RBC Hgb Hct MCV MCH MCHC RDW Plt Count Lymph % (Auto) [place] % (Auto) Eos % (Auto) Lymph # [place] # Eos # Seg Neutrophils % Seg Neuts % (Manual) Lymphocytes % (Manual) Monocytes % (Manual) Eosinophils % (Manual) Nucleated RBC % Seg Neutrophils # Seg Neutrophils # Man Lymphocytes # (Manual) Monocytes # (Manual) Eosinophils # (Manual) PT INR APTT Fibrinogen POC ABG pH 7.488 H ABG pH POC ABG pCO2 POC ABG pO2 ABG pO2 ABG HCO3 ABG O2 Saturation ABG Base Excess ABG Hemoglobin Oxyhemoglobin Sodium Potassium Chloride Carbon Dioxide BUN Creatinine Glucose POC Glucose 275 H 279 H Uric Acid Calcium Phosphorus Magnesium Iron TIBC AST ALT Total Creatine Kinase CK-MB (CK-2) Troponin T NT-Pro-B Natriuret Pep Total Protein Albumin Triglycerides HDL Cholesterol Folate Urine WBC (Auto) Urine Creatinine Urine Total Protein Vancomycin Trough 06/04/19 06/04/19 06/04/19 18:32 22:03 23:55 WBC RBC Hgb Hct MCV MCH MCHC RDW Plt Count Lymph % (Auto) [place] % (Auto) Eos % (Auto) Lymph # [place] # Eos # Seg Neutrophils % Seg Neuts % (Manual) Lymphocytes % (Manual) Monocytes % (Manual) Eosinophils % (Manual) Nucleated RBC % Seg Neutrophils # Seg Neutrophils # Man Lymphocytes # (Manual) Monocytes # (Manual) Eosinophils # (Manual) PT INR APTT Fibrinogen POC ABG pH ABG pH POC ABG pCO2 POC ABG pO2 ABG pO2 ABG HCO3 ABG O2 Saturation ABG Base Excess ABG Hemoglobin Oxyhemoglobin Sodium Potassium Chloride Carbon Dioxide BUN Creatinine Glucose POC Glucose 267 H 307 H 292 H Uric Acid Calcium Phosphorus Magnesium Iron TIBC AST ALT Total Creatine Kinase CK-MB (CK-2) Troponin T NT-Pro-B Natriuret Pep Total Protein Albumin Triglycerides HDL Cholesterol Folate Urine WBC (Auto) Urine Creatinine Urine Total Protein Vancomycin Trough 06/05/19 06/05/19 06/05/19 03:52 06:41 12:29 WBC RBC Hgb Hct MCV MCH MCHC RDW Plt Count Lymph % (Auto) [place] % (Auto) Eos % (Auto) Lymph # [place] # Eos # Seg Neutrophils % Seg Neuts % (Manual) Lymphocytes % (Manual) Monocytes % (Manual) Eosinophils % (Manual) Nucleated RBC % Seg Neutrophils # Seg Neutrophils # Man Lymphocytes # (Manual) Monocytes # (Manual) Eosinophils # (Manual) PT INR APTT Fibrinogen POC ABG pH 7.462 H ABG pH POC ABG pCO2 POC ABG pO2 ABG pO2 ABG HCO3 ABG O2 Saturation ABG Base Excess ABG Hemoglobin Oxyhemoglobin Sodium Potassium Chloride Carbon Dioxide BUN Creatinine Glucose POC Glucose 369 H 265 H Uric Acid Calcium Phosphorus Magnesium Iron TIBC AST ALT Total Creatine Kinase CK-MB (CK-2) Troponin T NT-Pro-B Natriuret Pep Total Protein Albumin Triglycerides HDL Cholesterol Folate Urine WBC (Auto) Urine Creatinine Urine Total Protein Vancomycin Trough 06/05/19 06/05/19 06/05/19 18:20 21:42 23:21 WBC RBC Hgb Hct MCV MCH MCHC RDW Plt Count Lymph % (Auto) [place] % (Auto) Eos % (Auto) Lymph # [place] # Eos # Seg Neutrophils % Seg Neuts % (Manual) Lymphocytes % (Manual) Monocytes % (Manual) Eosinophils % (Manual) Nucleated RBC % Seg Neutrophils # Seg Neutrophils # Man Lymphocytes # (Manual) Monocytes # (Manual) Eosinophils # (Manual) PT INR APTT Fibrinogen POC ABG pH ABG pH POC ABG pCO2 POC ABG pO2 ABG pO2 ABG HCO3 ABG O2 Saturation ABG Base Excess ABG Hemoglobin Oxyhemoglobin Sodium Potassium Chloride Carbon Dioxide BUN Creatinine Glucose POC Glucose 249 H 246 H 274 H Uric Acid Calcium Phosphorus Magnesium Iron TIBC AST ALT Total Creatine Kinase CK-MB (CK-2) Troponin T NT-Pro-B Natriuret Pep Total Protein Albumin Triglycerides HDL Cholesterol Folate Urine WBC (Auto) Urine Creatinine Urine Total Protein Vancomycin Trough 06/06/19 06/06/19 06/06/19 04:00 05:49 11:34 WBC 18.1 H RBC 3.53 L Hgb 9.5 L Hct 30.3 L MCV MCH 27 L MCHC 31 L RDW 19.5 H Plt Count Lymph % (Auto) [place] % (Auto) Eos % (Auto) Lymph # [place] # Eos # Seg Neutrophils % Seg Neuts % (Manual) 87.0 H Lymphocytes % (Manual) 3.0 L Monocytes % (Manual) 8.0 H Eosinophils % (Manual) Nucleated RBC % Seg Neutrophils # Seg Neutrophils # Man 15.7 H Lymphocytes # (Manual) 0.5 L Monocytes # (Manual) 1.4 H Eosinophils # (Manual) PT INR APTT Fibrinogen POC ABG pH ABG pH 7.472 H POC ABG pCO2 POC ABG pO2 ABG pO2 76.4 L ABG HCO3 28.1 H ABG O2 Saturation ABG Base Excess 4.3 H ABG Hemoglobin 12.5 L Oxyhemoglobin 93.8 L Sodium Potassium Chloride Carbon Dioxide BUN Creatinine Glucose POC Glucose 340 H Uric Acid Calcium Phosphorus Magnesium Iron TIBC AST ALT Total Creatine Kinase CK-MB (CK-2) Troponin T NT-Pro-B Natriuret Pep Total Protein Albumin Triglycerides HDL Cholesterol Folate Urine WBC (Auto) Urine Creatinine Urine Total Protein Vancomycin Trough 06/06/19 06/06/19 06/06/19 11:34 12:11 18:10 WBC RBC Hgb Hct MCV MCH MCHC RDW Plt Count Lymph % (Auto) [place] % (Auto) Eos % (Auto) Lymph # [place] # Eos # Seg Neutrophils % Seg Neuts % (Manual) Lymphocytes % (Manual) Monocytes % (Manual) Eosinophils % (Manual) Nucleated RBC % Seg Neutrophils # Seg Neutrophils # Man Lymphocytes # (Manual) Monocytes # (Manual) Eosinophils # (Manual) PT INR APTT Fibrinogen POC ABG pH ABG pH POC ABG pCO2 POC ABG pO2 ABG pO2 ABG HCO3 ABG O2 Saturation ABG Base Excess ABG Hemoglobin Oxyhemoglobin Sodium Potassium Chloride Carbon Dioxide BUN 70 H Creatinine Glucose 310 H POC Glucose 283 H 301 H Uric Acid Calcium 8.3 L Phosphorus 4.60 H Magnesium Iron TIBC AST ALT 75 H Total Creatine Kinase CK-MB (CK-2) Troponin T NT-Pro-B Natriuret Pep Total Protein 5.6 L Albumin 2.9 L Triglycerides HDL Cholesterol Folate Urine WBC (Auto) Urine Creatinine Urine Total Protein Vancomycin Trough 06/06/19 06/06/19 06/07/19 22:21 23:16 04:30 WBC RBC Hgb Hct MCV MCH MCHC RDW Plt Count Lymph % (Auto) [place] % (Auto) Eos % (Auto) Lymph # [place] # Eos # Seg Neutrophils % Seg Neuts % (Manual) Lymphocytes % (Manual) Monocytes % (Manual) Eosinophils % (Manual) Nucleated RBC % Seg Neutrophils # Seg Neutrophils # Man Lymphocytes # (Manual) Monocytes # (Manual) Eosinophils # (Manual) PT INR APTT Fibrinogen POC ABG pH ABG pH 7.480 H POC ABG pCO2 POC ABG pO2 ABG pO2 77.0 L ABG HCO3 27.2 H ABG O2 Saturation ABG Base Excess 3.5 H ABG Hemoglobin 7.1 L Oxyhemoglobin 94.2 L Sodium Potassium Chloride Carbon Dioxide BUN Creatinine Glucose POC Glucose 289 H 343 H Uric Acid Calcium Phosphorus Magnesium Iron TIBC AST ALT Total Creatine Kinase CK-MB (CK-2) Troponin T NT-Pro-B Natriuret Pep Total Protein Albumin Triglycerides HDL Cholesterol Folate Urine WBC (Auto) Urine Creatinine Urine Total Protein Vancomycin Trough 06/07/19 06/07/19 06/07/19 05:15 12:52 18:41 WBC RBC Hgb Hct MCV MCH MCHC RDW Plt Count Lymph % (Auto) [place] % (Auto) Eos % (Auto) Lymph # [place] # Eos # Seg Neutrophils % Seg Neuts % (Manual) Lymphocytes % (Manual) Monocytes % (Manual) Eosinophils % (Manual) Nucleated RBC % Seg Neutrophils # Seg Neutrophils # Man Lymphocytes # (Manual) Monocytes # (Manual) Eosinophils # (Manual) PT INR APTT Fibrinogen POC ABG pH ABG pH POC ABG pCO2 POC ABG pO2 ABG pO2 ABG HCO3 ABG O2 Saturation ABG Base Excess ABG Hemoglobin Oxyhemoglobin Sodium Potassium Chloride Carbon Dioxide BUN Creatinine Glucose POC Glucose 307 H 226 H 187 H Uric Acid Calcium Phosphorus Magnesium Iron TIBC AST ALT Total Creatine Kinase CK-MB (CK-2) Troponin T NT-Pro-B Natriuret Pep Total Protein Albumin Triglycerides HDL Cholesterol Folate Urine WBC (Auto) Urine Creatinine Urine Total Protein Vancomycin Trough 06/07/19 06/07/19 06/08/19 22:54 23:46 04:20 WBC 16.0 H RBC Hgb 10.0 L Hct 32.1 L MCV MCH 27 L MCHC 31 L RDW 19.4 H Plt Count Lymph % (Auto) [place] % (Auto) Eos % (Auto) Lymph # [place] # Eos # Seg Neutrophils % Seg Neuts % (Manual) 87.0 H Lymphocytes % (Manual) 7.0 L Monocytes % (Manual) Eosinophils % (Manual) Nucleated RBC % Seg Neutrophils # Seg Neutrophils # Man 13.9 H Lymphocytes # (Manual) 1.1 L Monocytes # (Manual) 1.0 H Eosinophils # (Manual) PT INR APTT Fibrinogen POC ABG pH ABG pH POC ABG pCO2 POC ABG pO2 ABG pO2 ABG HCO3 ABG O2 Saturation ABG Base Excess ABG Hemoglobin Oxyhemoglobin Sodium Potassium Chloride Carbon Dioxide BUN Creatinine Glucose POC Glucose 199 H 172 H Uric Acid Calcium Phosphorus Magnesium Iron TIBC AST ALT Total Creatine Kinase CK-MB (CK-2) Troponin T NT-Pro-B Natriuret Pep Total Protein Albumin Triglycerides HDL Cholesterol Folate Urine WBC (Auto) Urine Creatinine Urine Total Protein Vancomycin Trough 06/08/19 06/08/19 06/08/19 04:20 05:15 11:31 WBC RBC Hgb Hct MCV MCH MCHC RDW Plt Count Lymph % (Auto) [place] % (Auto) Eos % (Auto) Lymph # [place] # Eos # Seg Neutrophils % Seg Neuts % (Manual) Lymphocytes % (Manual) Monocytes % (Manual) Eosinophils % (Manual) Nucleated RBC % Seg Neutrophils # Seg Neutrophils # Man Lymphocytes # (Manual) Monocytes # (Manual) Eosinophils # (Manual) PT INR APTT Fibrinogen POC ABG pH ABG pH POC ABG pCO2 POC ABG pO2 ABG pO2 ABG HCO3 ABG O2 Saturation ABG Base Excess ABG Hemoglobin Oxyhemoglobin Sodium 146 H D Potassium Chloride Carbon Dioxide BUN 77 H Creatinine Glucose 205 H POC Glucose 209 H 181 H Uric Acid Calcium Phosphorus Magnesium Iron TIBC AST ALT 66 H Total Creatine Kinase CK-MB (CK-2) Troponin T NT-Pro-B Natriuret Pep Total Protein 5.5 L Albumin 2.9 L Triglycerides HDL Cholesterol Folate Urine WBC (Auto) Urine Creatinine Urine Total Protein Vancomycin Trough 06/08/19 06/08/19 06/09/19 17:28 23:24 05:20 WBC RBC Hgb Hct MCV MCH MCHC RDW Plt Count Lymph % (Auto) [place] % (Auto) Eos % (Auto) Lymph # [place] # Eos # Seg Neutrophils % Seg Neuts % (Manual) Lymphocytes % (Manual) Monocytes % (Manual) Eosinophils % (Manual) Nucleated RBC % Seg Neutrophils # Seg Neutrophils # Man Lymphocytes # (Manual) Monocytes # (Manual) Eosinophils # (Manual) PT INR APTT Fibrinogen POC ABG pH ABG pH POC ABG pCO2 POC ABG pO2 ABG pO2 ABG HCO3 ABG O2 Saturation ABG Base Excess ABG Hemoglobin Oxyhemoglobin Sodium Potassium Chloride Carbon Dioxide BUN Creatinine Glucose POC Glucose 215 H 200 H 173 H Uric Acid Calcium Phosphorus Magnesium Iron TIBC AST ALT Total Creatine Kinase CK-MB (CK-2) Troponin T NT-Pro-B Natriuret Pep Total Protein Albumin Triglycerides HDL Cholesterol Folate Urine WBC (Auto) Urine Creatinine Urine Total Protein Vancomycin Trough 06/09/19 06/09/19 06/09/19 12:07 18:32 23:51 WBC RBC Hgb Hct MCV MCH MCHC RDW Plt Count Lymph % (Auto) [place] % (Auto) Eos % (Auto) Lymph # [place] # Eos # Seg Neutrophils % Seg Neuts % (Manual) Lymphocytes % (Manual) Monocytes % (Manual) Eosinophils % (Manual) Nucleated RBC % Seg Neutrophils # Seg Neutrophils # Man Lymphocytes # (Manual) Monocytes # (Manual) Eosinophils # (Manual) PT INR APTT Fibrinogen POC ABG pH ABG pH POC ABG pCO2 POC ABG pO2 ABG pO2 ABG HCO3 ABG O2 Saturation ABG Base Excess ABG Hemoglobin Oxyhemoglobin Sodium Potassium Chloride Carbon Dioxide BUN Creatinine Glucose POC Glucose 117 H 169 H 147 H Uric Acid Calcium Phosphorus Magnesium Iron TIBC AST ALT Total Creatine Kinase CK-MB (CK-2) Troponin T NT-Pro-B Natriuret Pep Total Protein Albumin Triglycerides HDL Cholesterol Folate Urine WBC (Auto) Urine Creatinine Urine Total Protein Vancomycin Trough 06/10/19 06/10/19 06/10/19 05:45 05:45 06:01 WBC 14.6 H RBC Hgb 9.9 L Hct 32.2 L MCV MCH 27 L MCHC 31 L RDW 19.6 H Plt Count Lymph % (Auto) 10.5 L [place] % (Auto) 9.4 H Eos % (Auto) Lymph # [place] # 1.4 H Eos # Seg Neutrophils % 79.9 H Seg Neuts % (Manual) Lymphocytes % (Manual) Monocytes % (Manual) Eosinophils % (Manual) Nucleated RBC % Seg Neutrophils # 11.7 H Seg Neutrophils # Man Lymphocytes # (Manual) Monocytes # (Manual) Eosinophils # (Manual) PT INR APTT Fibrinogen POC ABG pH ABG pH POC ABG pCO2 POC ABG pO2 ABG pO2 ABG HCO3 ABG O2 Saturation ABG Base Excess ABG Hemoglobin Oxyhemoglobin Sodium 150 H Potassium Chloride 108.3 H Carbon Dioxide BUN 49 H Creatinine Glucose 172 H POC Glucose 165 H Uric Acid Calcium Phosphorus Magnesium 1.40 L Iron TIBC AST ALT Total Creatine Kinase CK-MB (CK-2) Troponin T NT-Pro-B Natriuret Pep Total Protein Albumin Triglycerides HDL Cholesterol Folate Urine WBC (Auto) Urine Creatinine Urine Total Protein Vancomycin Trough 06/10/19 06/10/19 06/11/19 12:11 18:30 00:02 WBC RBC Hgb Hct MCV MCH MCHC RDW Plt Count Lymph % (Auto) [place] % (Auto) Eos % (Auto) Lymph # [place] # Eos # Seg Neutrophils % Seg Neuts % (Manual) Lymphocytes % (Manual) Monocytes % (Manual) Eosinophils % (Manual) Nucleated RBC % Seg Neutrophils # Seg Neutrophils # Man Lymphocytes # (Manual) Monocytes # (Manual) Eosinophils # (Manual) PT INR APTT Fibrinogen POC ABG pH ABG pH POC ABG pCO2 POC ABG pO2 ABG pO2 ABG HCO3 ABG O2 Saturation ABG Base Excess ABG Hemoglobin Oxyhemoglobin Sodium Potassium Chloride Carbon Dioxide BUN Creatinine Glucose POC Glucose 150 H 154 H 130 H Uric Acid Calcium Phosphorus Magnesium Iron TIBC AST ALT Total Creatine Kinase CK-MB (CK-2) Troponin T NT-Pro-B Natriuret Pep Total Protein Albumin Triglycerides HDL Cholesterol Folate Urine WBC (Auto) Urine Creatinine Urine Total Protein Vancomycin Trough 06/11/19 06/11/19 06/11/19 05:33 08:34 12:33 WBC RBC Hgb Hct MCV MCH MCHC RDW Plt Count Lymph % (Auto) [place] % (Auto) Eos % (Auto) Lymph # [place] # Eos # Seg Neutrophils % Seg Neuts % (Manual) Lymphocytes % (Manual) Monocytes % (Manual) Eosinophils % (Manual) Nucleated RBC % Seg Neutrophils # Seg Neutrophils # Man Lymphocytes # (Manual) Monocytes # (Manual) Eosinophils # (Manual) PT INR APTT Fibrinogen POC ABG pH ABG pH POC ABG pCO2 POC ABG pO2 ABG pO2 ABG HCO3 ABG O2 Saturation ABG Base Excess ABG Hemoglobin Oxyhemoglobin Sodium 154 H Potassium Chloride 111.6 H Carbon Dioxide BUN 41 H Creatinine Glucose 147 H POC Glucose 183 H 185 H Uric Acid Calcium Phosphorus Magnesium Iron TIBC AST ALT Total Creatine Kinase CK-MB (CK-2) Troponin T NT-Pro-B Natriuret Pep Total Protein Albumin Triglycerides HDL Cholesterol Folate Urine WBC (Auto) Urine Creatinine Urine Total Protein Vancomycin Trough 06/11/19 06/11/19 06/12/19 18:22 23:46 03:21 WBC 11.9 H RBC 3.61 L Hgb 9.9 L Hct 31.7 L MCV MCH 27 L MCHC 31 L RDW 19.3 H Plt Count Lymph % (Auto) 10.6 L [place] % (Auto) 8.6 H Eos % (Auto) Lymph # [place] # 1.0 H Eos # Seg Neutrophils % 80.6 H Seg Neuts % (Manual) Lymphocytes % (Manual) Monocytes % (Manual) Eosinophils % (Manual) Nucleated RBC % Seg Neutrophils # 9.6 H Seg Neutrophils # Man Lymphocytes # (Manual) Monocytes # (Manual) Eosinophils # (Manual) PT INR APTT Fibrinogen POC ABG pH ABG pH POC ABG pCO2 POC ABG pO2 ABG pO2 ABG HCO3 ABG O2 Saturation ABG Base Excess ABG Hemoglobin Oxyhemoglobin Sodium Potassium Chloride Carbon Dioxide BUN Creatinine Glucose POC Glucose 158 H 182 H Uric Acid Calcium Phosphorus Magnesium Iron TIBC AST ALT Total Creatine Kinase CK-MB (CK-2) Troponin T NT-Pro-B Natriuret Pep Total Protein Albumin Triglycerides HDL Cholesterol Folate Urine WBC (Auto) Urine Creatinine Urine Total Protein Vancomycin Trough 06/12/19 06/12/19 06/12/19 03:21 06:04 11:28 WBC RBC Hgb Hct MCV MCH MCHC RDW Plt Count Lymph % (Auto) [place] % (Auto) Eos % (Auto) Lymph # [place] # Eos # Seg Neutrophils % Seg Neuts % (Manual) Lymphocytes % (Manual) Monocytes % (Manual) Eosinophils % (Manual) Nucleated RBC % Seg Neutrophils # Seg Neutrophils # Man Lymphocytes # (Manual) Monocytes # (Manual) Eosinophils # (Manual) PT INR APTT Fibrinogen POC ABG pH ABG pH POC ABG pCO2 POC ABG pO2 ABG pO2 ABG HCO3 ABG O2 Saturation ABG Base Excess ABG Hemoglobin Oxyhemoglobin Sodium 148 H Potassium Chloride 107.3 H Carbon Dioxide BUN 34 H Creatinine 0.7 L Glucose 194 H POC Glucose 133 H 167 H Uric Acid Calcium Phosphorus Magnesium 1.40 L Iron TIBC AST ALT Total Creatine Kinase CK-MB (CK-2) Troponin T NT-Pro-B Natriuret Pep Total Protein Albumin Triglycerides HDL Cholesterol Folate Urine WBC (Auto) Urine Creatinine Urine Total Protein Vancomycin Trough 06/12/19 06/12/19 06/13/19 18:47 21:27 00:04 WBC RBC Hgb Hct MCV MCH MCHC RDW Plt Count Lymph % (Auto) [place] % (Auto) Eos % (Auto) Lymph # [place] # Eos # Seg Neutrophils % Seg Neuts % (Manual) Lymphocytes % (Manual) Monocytes % (Manual) Eosinophils % (Manual) Nucleated RBC % Seg Neutrophils # Seg Neutrophils # Man Lymphocytes # (Manual) Monocytes # (Manual) Eosinophils # (Manual) PT INR APTT Fibrinogen POC ABG pH ABG pH POC ABG pCO2 POC ABG pO2 ABG pO2 ABG HCO3 ABG O2 Saturation ABG Base Excess ABG Hemoglobin Oxyhemoglobin Sodium Potassium Chloride Carbon Dioxide BUN Creatinine Glucose POC Glucose 210 H 263 H 248 H Uric Acid Calcium Phosphorus Magnesium Iron TIBC AST ALT Total Creatine Kinase CK-MB (CK-2) Troponin T NT-Pro-B Natriuret Pep Total Protein Albumin Triglycerides HDL Cholesterol Folate Urine WBC (Auto) Urine Creatinine Urine Total Protein Vancomycin Trough 06/13/19 06/13/19 06/13/19 04:32 05:46 13:30 WBC RBC Hgb Hct MCV MCH MCHC RDW Plt Count Lymph % (Auto) [place] % (Auto) Eos % (Auto) Lymph # [place] # Eos # Seg Neutrophils % Seg Neuts % (Manual) Lymphocytes % (Manual) Monocytes % (Manual) Eosinophils % (Manual) Nucleated RBC % Seg Neutrophils # Seg Neutrophils # Man Lymphocytes # (Manual) Monocytes # (Manual) Eosinophils # (Manual) PT INR APTT Fibrinogen POC ABG pH ABG pH POC ABG pCO2 POC ABG pO2 ABG pO2 ABG HCO3 ABG O2 Saturation ABG Base Excess ABG Hemoglobin Oxyhemoglobin Sodium Potassium Chloride Carbon Dioxide BUN 27 H Creatinine 0.7 L Glucose 253 H POC Glucose 201 H 241 H Uric Acid Calcium Phosphorus Magnesium Iron TIBC AST ALT Total Creatine Kinase CK-MB (CK-2) Troponin T NT-Pro-B Natriuret Pep Total Protein Albumin Triglycerides HDL Cholesterol Folate Urine WBC (Auto) Urine Creatinine Urine Total Protein Vancomycin Trough 06/13/19 06/13/19 06/14/19 17:33 23:49 04:50 WBC RBC Hgb Hct MCV MCH MCHC RDW Plt Count Lymph % (Auto) [place] % (Auto) Eos % (Auto) Lymph # [place] # Eos # Seg Neutrophils % Seg Neuts % (Manual) Lymphocytes % (Manual) Monocytes % (Manual) Eosinophils % (Manual) Nucleated RBC % Seg Neutrophils # Seg Neutrophils # Man Lymphocytes # (Manual) Monocytes # (Manual) Eosinophils # (Manual) PT INR APTT Fibrinogen POC ABG pH ABG pH POC ABG pCO2 POC ABG pO2 ABG pO2 ABG HCO3 ABG O2 Saturation ABG Base Excess ABG Hemoglobin Oxyhemoglobin Sodium Potassium Chloride Carbon Dioxide BUN 37 H Creatinine Glucose 256 H POC Glucose 264 H 236 H Uric Acid Calcium Phosphorus Magnesium Iron TIBC AST ALT Total Creatine Kinase CK-MB (CK-2) Troponin T NT-Pro-B Natriuret Pep Total Protein Albumin Triglycerides HDL Cholesterol Folate Urine WBC (Auto) Urine Creatinine Urine Total Protein Vancomycin Trough 06/14/19 06/14/19 06/14/19 05:26 12:31 18:32 WBC RBC Hgb Hct MCV MCH MCHC RDW Plt Count Lymph % (Auto) [place] % (Auto) Eos % (Auto) Lymph # [place] # Eos # Seg Neutrophils % Seg Neuts % (Manual) Lymphocytes % (Manual) Monocytes % (Manual) Eosinophils % (Manual) Nucleated RBC % Seg Neutrophils # Seg Neutrophils # Man Lymphocytes # (Manual) Monocytes # (Manual) Eosinophils # (Manual) PT INR APTT Fibrinogen POC ABG pH ABG pH POC ABG pCO2 POC ABG pO2 ABG pO2 ABG HCO3 ABG O2 Saturation ABG Base Excess ABG Hemoglobin Oxyhemoglobin Sodium Potassium Chloride Carbon Dioxide BUN Creatinine Glucose POC Glucose 239 H 116 H 247 H Uric Acid Calcium Phosphorus Magnesium Iron TIBC AST ALT Total Creatine Kinase CK-MB (CK-2) Troponin T NT-Pro-B Natriuret Pep Total Protein Albumin Triglycerides HDL Cholesterol Folate Urine WBC (Auto) Urine Creatinine Urine Total Protein Vancomycin Trough 06/14/19 06/15/19 06/15/19 23:57 04:05 05:55 WBC RBC Hgb Hct MCV MCH MCHC RDW Plt Count Lymph % (Auto) [place] % (Auto) Eos % (Auto) Lymph # [place] # Eos # Seg Neutrophils % Seg Neuts % (Manual) Lymphocytes % (Manual) Monocytes % (Manual) Eosinophils % (Manual) Nucleated RBC % Seg Neutrophils # Seg Neutrophils # Man Lymphocytes # (Manual) Monocytes # (Manual) Eosinophils # (Manual) PT INR APTT Fibrinogen POC ABG pH ABG pH POC ABG pCO2 POC ABG pO2 ABG pO2 ABG HCO3 ABG O2 Saturation ABG Base Excess ABG Hemoglobin Oxyhemoglobin Sodium Potassium Chloride Carbon Dioxide BUN 46 H Creatinine 0.7 L Glucose 265 H POC Glucose 206 H 265 H Uric Acid Calcium Phosphorus Magnesium Iron TIBC AST ALT Total Creatine Kinase CK-MB (CK-2) Troponin T NT-Pro-B Natriuret Pep Total Protein Albumin Triglycerides HDL Cholesterol Folate Urine WBC (Auto) Urine Creatinine Urine Total Protein Vancomycin Trough 06/15/19 06/15/19 06/15/19 12:08 18:45 23:41 WBC RBC Hgb Hct MCV MCH MCHC RDW Plt Count Lymph % (Auto) [place] % (Auto) Eos % (Auto) Lymph # [place] # Eos # Seg Neutrophils % Seg Neuts % (Manual) Lymphocytes % (Manual) Monocytes % (Manual) Eosinophils % (Manual) Nucleated RBC % Seg Neutrophils # Seg Neutrophils # Man Lymphocytes # (Manual) Monocytes # (Manual) Eosinophils # (Manual) PT INR APTT Fibrinogen POC ABG pH ABG pH POC ABG pCO2 POC ABG pO2 ABG pO2 ABG HCO3 ABG O2 Saturation ABG Base Excess ABG Hemoglobin Oxyhemoglobin Sodium Potassium Chloride Carbon Dioxide BUN Creatinine Glucose POC Glucose 224 H 177 H 193 H Uric Acid Calcium Phosphorus Magnesium Iron TIBC AST ALT Total Creatine Kinase CK-MB (CK-2) Troponin T NT-Pro-B Natriuret Pep Total Protein Albumin Triglycerides HDL Cholesterol Folate Urine WBC (Auto) Urine Creatinine Urine Total Protein Vancomycin Trough 06/16/19 06/16/19 06/16/19 05:00 05:00 05:40 WBC 11.9 H RBC 3.24 L Hgb 9.0 L Hct 29.0 L MCV MCH MCHC 31 L RDW 18.6 H Plt Count 111 L Lymph % (Auto) [place] % (Auto) Eos % (Auto) Lymph # [place] # Eos # Seg Neutrophils % Seg Neuts % (Manual) 92.0 H Lymphocytes % (Manual) 2.0 L Monocytes % (Manual) Eosinophils % (Manual) Nucleated RBC % Seg Neutrophils # Seg Neutrophils # Man 10.9 H Lymphocytes # (Manual) 0.2 L Monocytes # (Manual) Eosinophils # (Manual) PT INR APTT Fibrinogen POC ABG pH ABG pH POC ABG pCO2 POC ABG pO2 ABG pO2 ABG HCO3 ABG O2 Saturation ABG Base Excess ABG Hemoglobin Oxyhemoglobin Sodium Potassium Chloride Carbon Dioxide 33 H BUN 49 H Creatinine 0.7 L Glucose 264 H POC Glucose 247 H Uric Acid Calcium Phosphorus Magnesium Iron TIBC AST ALT Total Creatine Kinase CK-MB (CK-2) Troponin T NT-Pro-B Natriuret Pep Total Protein Albumin Triglycerides HDL Cholesterol Folate Urine WBC (Auto) Urine Creatinine Urine Total Protein Vancomycin Trough 06/16/19 06/16/19 06/16/19 12:03 17:11 18:11 WBC RBC Hgb Hct MCV MCH MCHC RDW Plt Count Lymph % (Auto) [place] % (Auto) Eos % (Auto) Lymph # [place] # Eos # Seg Neutrophils % Seg Neuts % (Manual) Lymphocytes % (Manual) Monocytes % (Manual) Eosinophils % (Manual) Nucleated RBC % Seg Neutrophils # Seg Neutrophils # Man Lymphocytes # (Manual) Monocytes # (Manual) Eosinophils # (Manual) PT INR APTT Fibrinogen POC ABG pH ABG pH 7.289 L POC ABG pCO2 POC ABG pO2 ABG pO2 399.3 H ABG HCO3 30.1 H ABG O2 Saturation 99.6 H ABG Base Excess ABG Hemoglobin 8.6 L Oxyhemoglobin Sodium Potassium Chloride Carbon Dioxide BUN Creatinine Glucose POC Glucose 252 H 254 H Uric Acid Calcium Phosphorus Magnesium Iron TIBC AST ALT Total Creatine Kinase CK-MB (CK-2) Troponin T NT-Pro-B Natriuret Pep Total Protein Albumin Triglycerides HDL Cholesterol Folate Urine WBC (Auto) Urine Creatinine Urine Total Protein Vancomycin Trough 06/16/19 06/17/19 06/17/19 23:16 05:30 05:53 WBC RBC Hgb Hct MCV MCH MCHC RDW Plt Count Lymph % (Auto) [place] % (Auto) Eos % (Auto) Lymph # [place] # Eos # Seg Neutrophils % Seg Neuts % (Manual) Lymphocytes % (Manual) Monocytes % (Manual) Eosinophils % (Manual) Nucleated RBC % Seg Neutrophils # Seg Neutrophils # Man Lymphocytes # (Manual) Monocytes # (Manual) Eosinophils # (Manual) PT INR APTT Fibrinogen POC ABG pH ABG pH POC ABG pCO2 POC ABG pO2 ABG pO2 ABG HCO3 ABG O2 Saturation ABG Base Excess ABG Hemoglobin Oxyhemoglobin Sodium 147 H Potassium Chloride Carbon Dioxide 32 H BUN 60 H Creatinine Glucose 205 H POC Glucose 238 H 211 H Uric Acid Calcium Phosphorus Magnesium Iron TIBC AST ALT Total Creatine Kinase CK-MB (CK-2) Troponin T NT-Pro-B Natriuret Pep Total Protein Albumin Triglycerides HDL Cholesterol Folate Urine WBC (Auto) Urine Creatinine Urine Total Protein Vancomycin Trough 06/17/19 06/17/19 06/17/19 09:50 12:27 12:45 WBC RBC 2.79 L Hgb 8.2 L Hct 24.6 L MCV MCH MCHC RDW 18.5 H Plt Count 95 L Lymph % (Auto) [place] % (Auto) Eos % (Auto) Lymph # [place] # Eos # Seg Neutrophils % Seg Neuts % (Manual) Lymphocytes % (Manual) Monocytes % (Manual) Eosinophils % (Manual) Nucleated RBC % Seg Neutrophils # Seg Neutrophils # Man Lymphocytes # (Manual) Monocytes # (Manual) Eosinophils # (Manual) PT INR APTT Fibrinogen 194 L POC ABG pH ABG pH POC ABG pCO2 POC ABG pO2 ABG pO2 ABG HCO3 ABG O2 Saturation ABG Base Excess ABG Hemoglobin Oxyhemoglobin Sodium Potassium Chloride Carbon Dioxide BUN Creatinine Glucose POC Glucose 224 H Uric Acid Calcium Phosphorus Magnesium Iron TIBC AST ALT Total Creatine Kinase CK-MB (CK-2) Troponin T NT-Pro-B Natriuret Pep Total Protein Albumin Triglycerides HDL Cholesterol Folate Urine WBC (Auto) Urine Creatinine Urine Total Protein Vancomycin Trough 06/17/19 06/17/19 06/17/19 18:41 22:00 23:23 WBC RBC Hgb Hct MCV MCH MCHC RDW Plt Count Lymph % (Auto) [place] % (Auto) Eos % (Auto) Lymph # [place] # Eos # Seg Neutrophils % Seg Neuts % (Manual) Lymphocytes % (Manual) Monocytes % (Manual) Eosinophils % (Manual) Nucleated RBC % Seg Neutrophils # Seg Neutrophils # Man Lymphocytes # (Manual) Monocytes # (Manual) Eosinophils # (Manual) PT INR APTT Fibrinogen POC ABG pH ABG pH POC ABG pCO2 POC ABG pO2 ABG pO2 ABG HCO3 ABG O2 Saturation ABG Base Excess ABG Hemoglobin Oxyhemoglobin Sodium Potassium Chloride Carbon Dioxide BUN Creatinine Glucose POC Glucose 198 H 166 H 171 H Uric Acid Calcium Phosphorus Magnesium Iron TIBC AST ALT Total Creatine Kinase CK-MB (CK-2) Troponin T NT-Pro-B Natriuret Pep Total Protein Albumin Triglycerides HDL Cholesterol Folate Urine WBC (Auto) Urine Creatinine Urine Total Protein Vancomycin Trough 06/17/19 06/18/19 06/18/19 Unknown 03:50 04:25 WBC RBC Hgb Hct MCV MCH MCHC RDW Plt Count Lymph % (Auto) [place] % (Auto) Eos % (Auto) Lymph # [place] # Eos # Seg Neutrophils % Seg Neuts % (Manual) Lymphocytes % (Manual) Monocytes % (Manual) Eosinophils % (Manual) Nucleated RBC % Seg Neutrophils # Seg Neutrophils # Man Lymphocytes # (Manual) Monocytes # (Manual) Eosinophils # (Manual) PT INR APTT Fibrinogen POC ABG pH ABG pH 7.564 H 7.499 H POC ABG pCO2 POC ABG pO2 ABG pO2 238.6 H 130.8 H ABG HCO3 33.6 H 32.5 H ABG O2 Saturation 99.4 H ABG Base Excess 10.6 H 8.5 H ABG Hemoglobin 7.9 L 8.8 L Oxyhemoglobin Sodium 151 H Potassium 3.4 L Chloride Carbon Dioxide BUN 66 H Creatinine Glucose 189 H POC Glucose Uric Acid Calcium Phosphorus Magnesium Iron TIBC AST ALT Total Creatine Kinase CK-MB (CK-2) Troponin T NT-Pro-B Natriuret Pep Total Protein Albumin Triglycerides HDL Cholesterol Folate Urine WBC (Auto) Urine Creatinine Urine Total Protein Vancomycin Trough 06/18/19 06/18/19 06/18/19 05:25 05:27 11:50 WBC RBC 2.61 L Hgb 7.4 L Hct 22.9 L MCV MCH MCHC RDW 19.9 H Plt Count 81 L Lymph % (Auto) 12.9 L [place] % (Auto) 7.7 H Eos % (Auto) Lymph # 1.1 L [place] # Eos # Seg Neutrophils % 77.4 H Seg Neuts % (Manual) Lymphocytes % (Manual) Monocytes % (Manual) Eosinophils % (Manual) Nucleated RBC % Seg Neutrophils # Seg Neutrophils # Man Lymphocytes # (Manual) Monocytes # (Manual) Eosinophils # (Manual) PT INR APTT Fibrinogen POC ABG pH ABG pH POC ABG pCO2 POC ABG pO2 ABG pO2 ABG HCO3 ABG O2 Saturation ABG Base Excess ABG Hemoglobin Oxyhemoglobin Sodium Potassium Chloride Carbon Dioxide BUN Creatinine Glucose POC Glucose 186 H 263 H Uric Acid Calcium Phosphorus Magnesium Iron TIBC AST ALT Total Creatine Kinase CK-MB (CK-2) Troponin T NT-Pro-B Natriuret Pep Total Protein Albumin Triglycerides HDL Cholesterol Folate Urine WBC (Auto) Urine Creatinine Urine Total Protein Vancomycin Trough 06/18/19 06/18/19 06/18/19 18:35 21:31 23:21 WBC RBC Hgb Hct MCV MCH MCHC RDW Plt Count Lymph % (Auto) [place] % (Auto) Eos % (Auto) Lymph # [place] # Eos # Seg Neutrophils % Seg Neuts % (Manual) Lymphocytes % (Manual) Monocytes % (Manual) Eosinophils % (Manual) Nucleated RBC % Seg Neutrophils # Seg Neutrophils # Man Lymphocytes # (Manual) Monocytes # (Manual) Eosinophils # (Manual) PT INR APTT Fibrinogen POC ABG pH ABG pH POC ABG pCO2 POC ABG pO2 ABG pO2 ABG HCO3 ABG O2 Saturation ABG Base Excess ABG Hemoglobin Oxyhemoglobin Sodium Potassium Chloride Carbon Dioxide BUN Creatinine Glucose POC Glucose 154 H 186 H 202 H Uric Acid Calcium Phosphorus Magnesium Iron TIBC AST ALT Total Creatine Kinase CK-MB (CK-2) Troponin T NT-Pro-B Natriuret Pep Total Protein Albumin Triglycerides HDL Cholesterol Folate Urine WBC (Auto) Urine Creatinine Urine Total Protein Vancomycin Trough 06/19/19 06/19/19 06/19/19 03:18 04:30 04:30 WBC RBC 2.65 L Hgb 7.5 L Hct 23.1 L MCV MCH MCHC RDW 19.4 H Plt Count 74 L Lymph % (Auto) 8.8 L [place] % (Auto) 9.4 H Eos % (Auto) 4.7 H Lymph # 0.6 L [place] # Eos # Seg Neutrophils % 76.6 H Seg Neuts % (Manual) Lymphocytes % (Manual) Monocytes % (Manual) Eosinophils % (Manual) Nucleated RBC % Seg Neutrophils # Seg Neutrophils # Man Lymphocytes # (Manual) Monocytes # (Manual) Eosinophils # (Manual) PT INR APTT Fibrinogen POC ABG pH ABG pH 7.452 H POC ABG pCO2 POC ABG pO2 ABG pO2 105.5 H ABG HCO3 32.3 H ABG O2 Saturation ABG Base Excess 7.6 H ABG Hemoglobin 6.9 L Oxyhemoglobin Sodium 150 H Potassium 3.3 L Chloride Carbon Dioxide 31 H BUN 56 H Creatinine Glucose 197 H POC Glucose Uric Acid Calcium Phosphorus Magnesium Iron TIBC AST ALT Total Creatine Kinase CK-MB (CK-2) Troponin T NT-Pro-B Natriuret Pep Total Protein Albumin Triglycerides 210 H HDL Cholesterol Folate Urine WBC (Auto) Urine Creatinine Urine Total Protein Vancomycin Trough 06/19/19 06/19/19 06/19/19 05:24 12:18 18:55 WBC RBC Hgb Hct MCV MCH MCHC RDW Plt Count Lymph % (Auto) [place] % (Auto) Eos % (Auto) Lymph # [place] # Eos # Seg Neutrophils % Seg Neuts % (Manual) Lymphocytes % (Manual) Monocytes % (Manual) Eosinophils % (Manual) Nucleated RBC % Seg Neutrophils # Seg Neutrophils # Man Lymphocytes # (Manual) Monocytes # (Manual) Eosinophils # (Manual) PT INR APTT Fibrinogen POC ABG pH ABG pH POC ABG pCO2 POC ABG pO2 ABG pO2 ABG HCO3 ABG O2 Saturation ABG Base Excess ABG Hemoglobin Oxyhemoglobin Sodium Potassium Chloride Carbon Dioxide BUN Creatinine Glucose POC Glucose 176 H 260 H 192 H Uric Acid Calcium Phosphorus Magnesium Iron TIBC AST ALT Total Creatine Kinase CK-MB (CK-2) Troponin T NT-Pro-B Natriuret Pep Total Protein Albumin Triglycerides HDL Cholesterol Folate Urine WBC (Auto) Urine Creatinine Urine Total Protein Vancomycin Trough 06/19/19 06/19/19 06/20/19 22:57 23:46 04:40 WBC RBC 2.79 L Hgb 7.9 L Hct 24.3 L MCV MCH MCHC RDW 19.6 H Plt Count 92 L Lymph % (Auto) 9.2 L [place] % (Auto) 12.0 H Eos % (Auto) 5.2 H Lymph # 0.9 L [place] # 1.2 H Eos # 0.5 H Seg Neutrophils % 73.3 H Seg Neuts % (Manual) Lymphocytes % (Manual) Monocytes % (Manual) Eosinophils % (Manual) Nucleated RBC % Seg Neutrophils # Seg Neutrophils # Man Lymphocytes # (Manual) Monocytes # (Manual) Eosinophils # (Manual) PT INR APTT Fibrinogen POC ABG pH ABG pH POC ABG pCO2 POC ABG pO2 ABG pO2 ABG HCO3 ABG O2 Saturation ABG Base Excess ABG Hemoglobin Oxyhemoglobin Sodium Potassium Chloride Carbon Dioxide BUN Creatinine Glucose POC Glucose 145 H 216 H Uric Acid Calcium Phosphorus Magnesium Iron TIBC AST ALT Total Creatine Kinase CK-MB (CK-2) Troponin T NT-Pro-B Natriuret Pep Total Protein Albumin Triglycerides HDL Cholesterol Folate Urine WBC (Auto) Urine Creatinine Urine Total Protein Vancomycin Trough 06/20/19 06/20/19 06/20/19 04:40 05:40 05:54 WBC RBC Hgb Hct MCV MCH MCHC RDW Plt Count Lymph % (Auto) [place] % (Auto) Eos % (Auto) Lymph # [place] # Eos # Seg Neutrophils % Seg Neuts % (Manual) Lymphocytes % (Manual) Monocytes % (Manual) Eosinophils % (Manual) Nucleated RBC % Seg Neutrophils # Seg Neutrophils # Man Lymphocytes # (Manual) Monocytes # (Manual) Eosinophils # (Manual) PT INR APTT Fibrinogen POC ABG pH ABG pH 7.455 H POC ABG pCO2 POC ABG pO2 ABG pO2 60.9 L ABG HCO3 30.3 H ABG O2 Saturation 92.3 L ABG Base Excess 5.8 H ABG Hemoglobin 8.2 L Oxyhemoglobin 90.1 L Sodium Potassium 3.5 L Chloride Carbon Dioxide BUN 59 H Creatinine Glucose 200 H POC Glucose 190 H Uric Acid Calcium Phosphorus Magnesium 1.60 L Iron TIBC AST ALT Total Creatine Kinase CK-MB (CK-2) Troponin T NT-Pro-B Natriuret Pep Total Protein Albumin Triglycerides HDL Cholesterol Folate Urine WBC (Auto) Urine Creatinine Urine Total Protein Vancomycin Trough 06/20/19 06/20/19 06/20/19 09:12 09:12 12:24 WBC RBC Hgb Hct MCV MCH MCHC RDW Plt Count Lymph % (Auto) [place] % (Auto) Eos % (Auto) Lymph # [place] # Eos # Seg Neutrophils % Seg Neuts % (Manual) Lymphocytes % (Manual) Monocytes % (Manual) Eosinophils % (Manual) Nucleated RBC % Seg Neutrophils # Seg Neutrophils # Man Lymphocytes # (Manual) Monocytes # (Manual) Eosinophils # (Manual) PT INR APTT Fibrinogen POC ABG pH ABG pH POC ABG pCO2 POC ABG pO2 ABG pO2 ABG HCO3 ABG O2 Saturation ABG Base Excess ABG Hemoglobin Oxyhemoglobin Sodium Potassium Chloride Carbon Dioxide BUN Creatinine Glucose POC Glucose 225 H Uric Acid Calcium Phosphorus Magnesium Iron 45 L TIBC 110 L AST ALT Total Creatine Kinase CK-MB (CK-2) Troponin T NT-Pro-B Natriuret Pep Total Protein Albumin Triglycerides HDL Cholesterol Folate 7.01 L Urine WBC (Auto) Urine Creatinine Urine Total Protein Vancomycin Trough 06/20/19 06/20/19 06/20/19 17:42 21:55 23:24 WBC RBC Hgb Hct MCV MCH MCHC RDW Plt Count Lymph % (Auto) [place] % (Auto) Eos % (Auto) Lymph # [place] # Eos # Seg Neutrophils % Seg Neuts % (Manual) Lymphocytes % (Manual) Monocytes % (Manual) Eosinophils % (Manual) Nucleated RBC % Seg Neutrophils # Seg Neutrophils # Man Lymphocytes # (Manual) Monocytes # (Manual) Eosinophils # (Manual) PT INR APTT Fibrinogen POC ABG pH ABG pH POC ABG pCO2 POC ABG pO2 ABG pO2 ABG HCO3 ABG O2 Saturation ABG Base Excess ABG Hemoglobin Oxyhemoglobin Sodium Potassium Chloride Carbon Dioxide BUN Creatinine Glucose POC Glucose 255 H 218 H 215 H Uric Acid Calcium Phosphorus Magnesium Iron TIBC AST ALT Total Creatine Kinase CK-MB (CK-2) Troponin T NT-Pro-B Natriuret Pep Total Protein Albumin Triglycerides HDL Cholesterol Folate Urine WBC (Auto) Urine Creatinine Urine Total Protein Vancomycin Trough 06/21/19 06/21/19 06/21/19 03:32 03:40 05:20 WBC 12.8 H RBC 3.03 L Hgb 8.5 L Hct 26.2 L MCV MCH MCHC RDW 19.4 H Plt Count 131 L Lymph % (Auto) [place] % (Auto) Eos % (Auto) Lymph # [place] # Eos # Seg Neutrophils % Seg Neuts % (Manual) 78.0 H Lymphocytes % (Manual) 5.0 L Monocytes % (Manual) 11.0 H Eosinophils % (Manual) Nucleated RBC % Seg Neutrophils # Seg Neutrophils # Man 10.0 H Lymphocytes # (Manual) 0.6 L Monocytes # (Manual) 1.4 H Eosinophils # (Manual) 0.5 H PT INR APTT Fibrinogen POC ABG pH ABG pH 7.476 H POC ABG pCO2 POC ABG pO2 ABG pO2 162.0 H ABG HCO3 26.8 H ABG O2 Saturation 99.1 H ABG Base Excess 3.1 H ABG Hemoglobin 8.6 L Oxyhemoglobin Sodium Potassium Chloride Carbon Dioxide BUN Creatinine Glucose POC Glucose 202 H Uric Acid Calcium Phosphorus Magnesium Iron TIBC AST ALT Total Creatine Kinase CK-MB (CK-2) Troponin T NT-Pro-B Natriuret Pep Total Protein Albumin Triglycerides HDL Cholesterol Folate Urine WBC (Auto) Urine Creatinine Urine Total Protein Vancomycin Trough 06/21/19 06/21/19 06/21/19 05:20 12:30 18:18 WBC RBC Hgb Hct MCV MCH MCHC RDW Plt Count Lymph % (Auto) [place] % (Auto) Eos % (Auto) Lymph # [place] # Eos # Seg Neutrophils % Seg Neuts % (Manual) Lymphocytes % (Manual) Monocytes % (Manual) Eosinophils % (Manual) Nucleated RBC % Seg Neutrophils # Seg Neutrophils # Man Lymphocytes # (Manual) Monocytes # (Manual) Eosinophils # (Manual) PT INR APTT Fibrinogen POC ABG pH ABG pH POC ABG pCO2 POC ABG pO2 ABG pO2 ABG HCO3 ABG O2 Saturation ABG Base Excess ABG Hemoglobin Oxyhemoglobin Sodium Potassium Chloride 97.7 L Carbon Dioxide BUN 69 H Creatinine Glucose 239 H POC Glucose 176 H 187 H Uric Acid Calcium Phosphorus Magnesium 2.40 H Iron TIBC AST ALT Total Creatine Kinase CK-MB (CK-2) Troponin T NT-Pro-B Natriuret Pep Total Protein Albumin Triglycerides HDL Cholesterol Folate Urine WBC (Auto) Urine Creatinine Urine Total Protein Vancomycin Trough 06/22/19 06/22/19 06/22/19 04:11 05:30 05:30 WBC 12.6 H RBC 3.10 L Hgb 8.7 L Hct 27.0 L MCV MCH MCHC RDW 19.8 H Plt Count Lymph % (Auto) [place] % (Auto) Eos % (Auto) Lymph # [place] # Eos # Seg Neutrophils % Seg Neuts % (Manual) Lymphocytes % (Manual) Monocytes % (Manual) 10.0 H Eosinophils % (Manual) Nucleated RBC % Seg Neutrophils # Seg Neutrophils # Man 8.7 H Lymphocytes # (Manual) Monocytes # (Manual) 1.3 H Eosinophils # (Manual) PT INR APTT Fibrinogen POC ABG pH ABG pH POC ABG pCO2 POC ABG pO2 ABG pO2 ABG HCO3 27.7 H ABG O2 Saturation ABG Base Excess 3.3 H ABG Hemoglobin 8.5 L Oxyhemoglobin 94.9 L Sodium Potassium Chloride Carbon Dioxide BUN 66 H Creatinine Glucose 103 H POC Glucose Uric Acid Calcium Phosphorus Magnesium Iron TIBC AST ALT Total Creatine Kinase CK-MB (CK-2) Troponin T NT-Pro-B Natriuret Pep Total Protein Albumin Triglycerides HDL Cholesterol Folate Urine WBC (Auto) Urine Creatinine Urine Total Protein Vancomycin Trough 06/22/19 06/22/19 06/23/19 17:43 23:25 02:00 WBC RBC Hgb Hct MCV MCH MCHC RDW Plt Count Lymph % (Auto) [place] % (Auto) Eos % (Auto) Lymph # [place] # Eos # Seg Neutrophils % Seg Neuts % (Manual) Lymphocytes % (Manual) Monocytes % (Manual) Eosinophils % (Manual) Nucleated RBC % Seg Neutrophils # Seg Neutrophils # Man Lymphocytes # (Manual) Monocytes # (Manual) Eosinophils # (Manual) PT INR APTT Fibrinogen POC ABG pH ABG pH 7.469 H POC ABG pCO2 POC ABG pO2 ABG pO2 58.7 L ABG HCO3 28.0 H ABG O2 Saturation 94.6 L ABG Base Excess 4.0 H ABG Hemoglobin 7.1 L Oxyhemoglobin 92.2 L Sodium Potassium Chloride Carbon Dioxide BUN Creatinine Glucose POC Glucose 143 H 106 H Uric Acid Calcium Phosphorus Magnesium Iron TIBC AST ALT Total Creatine Kinase CK-MB (CK-2) Troponin T NT-Pro-B Natriuret Pep Total Protein Albumin Triglycerides HDL Cholesterol Folate Urine WBC (Auto) Urine Creatinine Urine Total Protein Vancomycin Trough 06/23/19 06/23/19 06/23/19 05:24 05:24 11:43 WBC 12.6 H RBC 2.96 L Hgb 8.3 L Hct 25.5 L MCV MCH MCHC RDW 20.2 H Plt Count Lymph % (Auto) [place] % (Auto) Eos % (Auto) Lymph # [place] # Eos # Seg Neutrophils % Seg Neuts % (Manual) Lymphocytes % (Manual) 12.0 L Monocytes % (Manual) 11.0 H Eosinophils % (Manual) 6.0 H Nucleated RBC % Seg Neutrophils # Seg Neutrophils # Man 8.8 H Lymphocytes # (Manual) Monocytes # (Manual) 1.4 H Eosinophils # (Manual) 0.8 H PT INR APTT Fibrinogen POC ABG pH ABG pH POC ABG pCO2 POC ABG pO2 ABG pO2 ABG HCO3 ABG O2 Saturation ABG Base Excess ABG Hemoglobin Oxyhemoglobin Sodium 146 H Potassium 3.5 L Chloride Carbon Dioxide BUN 48 H Creatinine Glucose 123 H POC Glucose 120 H Uric Acid Calcium Phosphorus Magnesium Iron TIBC AST ALT Total Creatine Kinase CK-MB (CK-2) Troponin T NT-Pro-B Natriuret Pep Total Protein Albumin Triglycerides HDL Cholesterol Folate Urine WBC (Auto) Urine Creatinine Urine Total Protein Vancomycin Trough 06/23/19 06/24/19 06/24/19 17:39 06:53 06:53 WBC 12.3 H RBC 2.87 L Hgb 8.0 L Hct 24.9 L MCV MCH MCHC RDW 20.5 H Plt Count Lymph % (Auto) [place] % (Auto) 8.8 H Eos % (Auto) 4.4 H Lymph # [place] # 1.1 H Eos # 0.5 H Seg Neutrophils % Seg Neuts % (Manual) Lymphocytes % (Manual) Monocytes % (Manual) Eosinophils % (Manual) Nucleated RBC % Seg Neutrophils # Seg Neutrophils # Man Lymphocytes # (Manual) Monocytes # (Manual) Eosinophils # (Manual) PT INR APTT Fibrinogen POC ABG pH ABG pH POC ABG pCO2 POC ABG pO2 ABG pO2 ABG HCO3 ABG O2 Saturation ABG Base Excess ABG Hemoglobin Oxyhemoglobin Sodium Potassium Chloride 107.1 H Carbon Dioxide 21 L BUN 29 H Creatinine 0.6 L Glucose 117 H POC Glucose 111 H Uric Acid Calcium Phosphorus Magnesium 1.60 L Iron TIBC AST ALT Total Creatine Kinase CK-MB (CK-2) Troponin T NT-Pro-B Natriuret Pep Total Protein Albumin Triglycerides HDL Cholesterol Folate Urine WBC (Auto) Urine Creatinine Urine Total Protein Vancomycin Trough 06/24/19 06/24/19 06/24/19 12:12 18:01 23:20 WBC RBC Hgb Hct MCV MCH MCHC RDW Plt Count Lymph % (Auto) [place] % (Auto) Eos % (Auto) Lymph # [place] # Eos # Seg Neutrophils % Seg Neuts % (Manual) Lymphocytes % (Manual) Monocytes % (Manual) Eosinophils % (Manual) Nucleated RBC % Seg Neutrophils # Seg Neutrophils # Man Lymphocytes # (Manual) Monocytes # (Manual) Eosinophils # (Manual) PT INR APTT Fibrinogen POC ABG pH ABG pH POC ABG pCO2 POC ABG pO2 ABG pO2 ABG HCO3 ABG O2 Saturation ABG Base Excess ABG Hemoglobin Oxyhemoglobin Sodium Potassium Chloride Carbon Dioxide BUN Creatinine Glucose POC Glucose 158 H 133 H 106 H Uric Acid Calcium Phosphorus Magnesium Iron TIBC AST ALT Total Creatine Kinase CK-MB (CK-2) Troponin T NT-Pro-B Natriuret Pep Total Protein Albumin Triglycerides HDL Cholesterol Folate Urine WBC (Auto) Urine Creatinine Urine Total Protein Vancomycin Trough 06/25/19 06/25/19 06/25/19 04:46 04:46 05:36 WBC 12.3 H RBC 2.98 L Hgb 8.3 L Hct 26.4 L MCV MCH MCHC 31 L RDW 20.1 H Plt Count Lymph % (Auto) [place] % (Auto) Eos % (Auto) Lymph # [place] # Eos # Seg Neutrophils % Seg Neuts % (Manual) Lymphocytes % (Manual) Monocytes % (Manual) 10.0 H Eosinophils % (Manual) Nucleated RBC % Seg Neutrophils # Seg Neutrophils # Man 8.1 H Lymphocytes # (Manual) Monocytes # (Manual) 1.2 H Eosinophils # (Manual) PT INR APTT Fibrinogen POC ABG pH ABG pH POC ABG pCO2 POC ABG pO2 ABG pO2 ABG HCO3 ABG O2 Saturation ABG Base Excess ABG Hemoglobin Oxyhemoglobin Sodium 148 H Potassium Chloride 108.0 H Carbon Dioxide BUN 21 H Creatinine 0.7 L Glucose 120 H POC Glucose 121 H Uric Acid Calcium Phosphorus Magnesium Iron TIBC AST ALT Total Creatine Kinase CK-MB (CK-2) Troponin T NT-Pro-B Natriuret Pep Total Protein Albumin Triglycerides HDL Cholesterol Folate Urine WBC (Auto) Urine Creatinine Urine Total Protein Vancomycin Trough 06/25/19 06/25/19 06/26/19 14:02 18:30 00:01 WBC RBC Hgb Hct MCV MCH MCHC RDW Plt Count Lymph % (Auto) [place] % (Auto) Eos % (Auto) Lymph # [place] # Eos # Seg Neutrophils % Seg Neuts % (Manual) Lymphocytes % (Manual) Monocytes % (Manual) Eosinophils % (Manual) Nucleated RBC % Seg Neutrophils # Seg Neutrophils # Man Lymphocytes # (Manual) Monocytes # (Manual) Eosinophils # (Manual) PT INR APTT Fibrinogen POC ABG pH ABG pH POC ABG pCO2 POC ABG pO2 ABG pO2 ABG HCO3 ABG O2 Saturation ABG Base Excess ABG Hemoglobin Oxyhemoglobin Sodium Potassium Chloride Carbon Dioxide BUN Creatinine Glucose POC Glucose 125 H 145 H 142 H Uric Acid Calcium Phosphorus Magnesium Iron TIBC AST ALT Total Creatine Kinase CK-MB (CK-2) Troponin T NT-Pro-B Natriuret Pep Total Protein Albumin Triglycerides HDL Cholesterol Folate Urine WBC (Auto) Urine Creatinine Urine Total Protein Vancomycin Trough 06/26/19 06/26/19 06/26/19 04:43 04:43 05:41 WBC RBC 3.02 L Hgb 8.6 L Hct 27.0 L MCV MCH MCHC RDW 20.4 H Plt Count Lymph % (Auto) [place] % (Auto) Eos % (Auto) Lymph # [place] # Eos # Seg Neutrophils % Seg Neuts % (Manual) Lymphocytes % (Manual) Monocytes % (Manual) 9.0 H Eosinophils % (Manual) Nucleated RBC % Seg Neutrophils # Seg Neutrophils # Man Lymphocytes # (Manual) Monocytes # (Manual) 1.0 H Eosinophils # (Manual) PT INR APTT Fibrinogen POC ABG pH ABG pH POC ABG pCO2 POC ABG pO2 ABG pO2 ABG HCO3 ABG O2 Saturation ABG Base Excess ABG Hemoglobin Oxyhemoglobin Sodium Potassium Chloride Carbon Dioxide BUN Creatinine 0.7 L Glucose 111 H POC Glucose 110 H Uric Acid Calcium Phosphorus Magnesium 1.60 L Iron TIBC AST ALT Total Creatine Kinase CK-MB (CK-2) Troponin T NT-Pro-B Natriuret Pep Total Protein Albumin Triglycerides HDL Cholesterol Folate Urine WBC (Auto) Urine Creatinine Urine Total Protein Vancomycin Trough 06/26/19 06/26/19 06/27/19 11:55 18:07 12:10 WBC RBC Hgb Hct MCV MCH MCHC RDW Plt Count Lymph % (Auto) [place] % (Auto) Eos % (Auto) Lymph # [place] # Eos # Seg Neutrophils % Seg Neuts % (Manual) Lymphocytes % (Manual) Monocytes % (Manual) Eosinophils % (Manual) Nucleated RBC % Seg Neutrophils # Seg Neutrophils # Man Lymphocytes # (Manual) Monocytes # (Manual) Eosinophils # (Manual) PT INR APTT Fibrinogen POC ABG pH ABG pH POC ABG pCO2 POC ABG pO2 ABG pO2 ABG HCO3 ABG O2 Saturation ABG Base Excess ABG Hemoglobin Oxyhemoglobin Sodium Potassium Chloride Carbon Dioxide BUN Creatinine Glucose POC Glucose 159 H 107 H 121 H Uric Acid Calcium Phosphorus Magnesium Iron TIBC AST ALT Total Creatine Kinase CK-MB (CK-2) Troponin T NT-Pro-B Natriuret Pep Total Protein Albumin Triglycerides HDL Cholesterol Folate Urine WBC (Auto) Urine Creatinine Urine Total Protein Vancomycin Trough 06/28/19 06/29/19 06/29/19 05:54 13:10 17:58 WBC RBC Hgb Hct MCV MCH MCHC RDW Plt Count Lymph % (Auto) [place] % (Auto) Eos % (Auto) Lymph # [place] # Eos # Seg Neutrophils % Seg Neuts % (Manual) Lymphocytes % (Manual) Monocytes % (Manual) Eosinophils % (Manual) Nucleated RBC % Seg Neutrophils # Seg Neutrophils # Man Lymphocytes # (Manual) Monocytes # (Manual) Eosinophils # (Manual) PT INR APTT Fibrinogen POC ABG pH ABG pH POC ABG pCO2 POC ABG pO2 ABG pO2 ABG HCO3 ABG O2 Saturation ABG Base Excess ABG Hemoglobin Oxyhemoglobin Sodium Potassium Chloride Carbon Dioxide BUN Creatinine Glucose POC Glucose 107 H 115 H 108 H Uric Acid Calcium Phosphorus Magnesium Iron TIBC AST ALT Total Creatine Kinase CK-MB (CK-2) Troponin T NT-Pro-B Natriuret Pep Total Protein Albumin Triglycerides HDL Cholesterol Folate Urine WBC (Auto) Urine Creatinine Urine Total Protein Vancomycin Trough 06/30/19 06/30/19 07/01/19 12:00 18:13 05:49 WBC RBC Hgb Hct MCV MCH MCHC RDW Plt Count Lymph % (Auto) [place] % (Auto) Eos % (Auto) Lymph # [place] # Eos # Seg Neutrophils % Seg Neuts % (Manual) Lymphocytes % (Manual) Monocytes % (Manual) Eosinophils % (Manual) Nucleated RBC % Seg Neutrophils # Seg Neutrophils # Man Lymphocytes # (Manual) Monocytes # (Manual) Eosinophils # (Manual) PT INR APTT Fibrinogen POC ABG pH ABG pH POC ABG pCO2 POC ABG pO2 ABG pO2 ABG HCO3 ABG O2 Saturation ABG Base Excess ABG Hemoglobin Oxyhemoglobin Sodium Potassium Chloride Carbon Dioxide BUN Creatinine Glucose POC Glucose 108 H 114 H 114 H Uric Acid Calcium Phosphorus Magnesium Iron TIBC AST ALT Total Creatine Kinase CK-MB (CK-2) Troponin T NT-Pro-B Natriuret Pep Total Protein Albumin Triglycerides HDL Cholesterol Folate Urine WBC (Auto) Urine Creatinine Urine Total Protein Vancomycin Trough 07/01/19 07/01/19 07/01/19 07:58 07:58 12:06 WBC 11.5 H RBC 3.24 L Hgb 9.0 L Hct 28.4 L MCV MCH MCHC RDW 20.8 H Plt Count Lymph % (Auto) 8.3 L [place] % (Auto) 10.0 H Eos % (Auto) Lymph # 0.9 L [place] # 1.2 H Eos # Seg Neutrophils % 79.4 H Seg Neuts % (Manual) Lymphocytes % (Manual) Monocytes % (Manual) Eosinophils % (Manual) Nucleated RBC % Seg Neutrophils # 9.1 H Seg Neutrophils # Man Lymphocytes # (Manual) Monocytes # (Manual) Eosinophils # (Manual) PT INR APTT Fibrinogen POC ABG pH ABG pH POC ABG pCO2 POC ABG pO2 ABG pO2 ABG HCO3 ABG O2 Saturation ABG Base Excess ABG Hemoglobin Oxyhemoglobin Sodium Potassium Chloride Carbon Dioxide BUN Creatinine 0.4 L Glucose 130 H POC Glucose 133 H Uric Acid Calcium Phosphorus Magnesium Iron TIBC AST ALT Total Creatine Kinase CK-MB (CK-2) Troponin T NT-Pro-B Natriuret Pep Total Protein Albumin Triglycerides HDL Cholesterol Folate Urine WBC (Auto) Urine Creatinine Urine Total Protein Vancomycin Trough 07/02/19 07/02/19 07/02/19 05:54 13:27 13:39 WBC RBC Hgb Hct MCV MCH MCHC RDW Plt Count Lymph % (Auto) [place] % (Auto) Eos % (Auto) Lymph # [place] # Eos # Seg Neutrophils % Seg Neuts % (Manual) Lymphocytes % (Manual) Monocytes % (Manual) Eosinophils % (Manual) Nucleated RBC % Seg Neutrophils # Seg Neutrophils # Man Lymphocytes # (Manual) Monocytes # (Manual) Eosinophils # (Manual) PT INR APTT Fibrinogen POC ABG pH ABG pH POC ABG pCO2 POC ABG pO2 ABG pO2 ABG HCO3 ABG O2 Saturation ABG Base Excess ABG Hemoglobin Oxyhemoglobin Sodium Potassium Chloride Carbon Dioxide BUN Creatinine Glucose POC Glucose 111 H 123 H 116 H Uric Acid Calcium Phosphorus Magnesium Iron TIBC AST ALT Total Creatine Kinase CK-MB (CK-2) Troponin T NT-Pro-B Natriuret Pep Total Protein Albumin Triglycerides HDL Cholesterol Folate Urine WBC (Auto) Urine Creatinine Urine Total Protein Vancomycin Trough 07/02/19 07/03/19 07/04/19 18:00 06:06 12:15 WBC RBC Hgb Hct MCV MCH MCHC RDW Plt Count Lymph % (Auto) [place] % (Auto) Eos % (Auto) Lymph # [place] # Eos # Seg Neutrophils % Seg Neuts % (Manual) Lymphocytes % (Manual) Monocytes % (Manual) Eosinophils % (Manual) Nucleated RBC % Seg Neutrophils # Seg Neutrophils # Man Lymphocytes # (Manual) Monocytes # (Manual) Eosinophils # (Manual) PT INR APTT Fibrinogen POC ABG pH ABG pH POC ABG pCO2 POC ABG pO2 ABG pO2 ABG HCO3 ABG O2 Saturation ABG Base Excess ABG Hemoglobin Oxyhemoglobin Sodium Potassium Chloride Carbon Dioxide BUN Creatinine Glucose POC Glucose 118 H 127 H 122 H Uric Acid Calcium Phosphorus Magnesium Iron TIBC AST ALT Total Creatine Kinase CK-MB (CK-2) Troponin T NT-Pro-B Natriuret Pep Total Protein Albumin Triglycerides HDL Cholesterol Folate Urine WBC (Auto) Urine Creatinine Urine Total Protein Vancomycin Trough 07/04/19 07/04/19 07/05/19 18:09 23:48 06:30 WBC RBC Hgb Hct MCV MCH MCHC RDW Plt Count Lymph % (Auto) [place] % (Auto) Eos % (Auto) Lymph # [place] # Eos # Seg Neutrophils % Seg Neuts % (Manual) Lymphocytes % (Manual) Monocytes % (Manual) Eosinophils % (Manual) Nucleated RBC % Seg Neutrophils # Seg Neutrophils # Man Lymphocytes # (Manual) Monocytes # (Manual) Eosinophils # (Manual) PT INR APTT Fibrinogen POC ABG pH ABG pH POC ABG pCO2 POC ABG pO2 ABG pO2 ABG HCO3 ABG O2 Saturation ABG Base Excess ABG Hemoglobin Oxyhemoglobin Sodium Potassium Chloride Carbon Dioxide BUN Creatinine Glucose POC Glucose 115 H 110 H 106 H Uric Acid Calcium Phosphorus Magnesium Iron TIBC AST ALT Total Creatine Kinase CK-MB (CK-2) Troponin T NT-Pro-B Natriuret Pep Total Protein Albumin Triglycerides HDL Cholesterol Folate Urine WBC (Auto) Urine Creatinine Urine Total Protein Vancomycin Trough 07/05/19 07/05/19 07/05/19 11:55 18:16 23:38 WBC RBC Hgb Hct MCV MCH MCHC RDW Plt Count Lymph % (Auto) [place] % (Auto) Eos % (Auto) Lymph # [place] # Eos # Seg Neutrophils % Seg Neuts % (Manual) Lymphocytes % (Manual) Monocytes % (Manual) Eosinophils % (Manual) Nucleated RBC % Seg Neutrophils # Seg Neutrophils # Man Lymphocytes # (Manual) Monocytes # (Manual) Eosinophils # (Manual) PT INR APTT Fibrinogen POC ABG pH ABG pH POC ABG pCO2 POC ABG pO2 ABG pO2 ABG HCO3 ABG O2 Saturation ABG Base Excess ABG Hemoglobin Oxyhemoglobin Sodium Potassium Chloride Carbon Dioxide BUN Creatinine Glucose POC Glucose 106 H 120 H 114 H Uric Acid Calcium Phosphorus Magnesium Iron TIBC AST ALT Total Creatine Kinase CK-MB (CK-2) Troponin T NT-Pro-B Natriuret Pep Total Protein Albumin Triglycerides HDL Cholesterol Folate Urine WBC (Auto) Urine Creatinine Urine Total Protein Vancomycin Trough 07/06/19 07/06/19 07/06/19 06:01 12:28 18:49 WBC RBC Hgb Hct MCV MCH MCHC RDW Plt Count Lymph % (Auto) [place] % (Auto) Eos % (Auto) Lymph # [place] # Eos # Seg Neutrophils % Seg Neuts % (Manual) Lymphocytes % (Manual) Monocytes % (Manual) Eosinophils % (Manual) Nucleated RBC % Seg Neutrophils # Seg Neutrophils # Man Lymphocytes # (Manual) Monocytes # (Manual) Eosinophils # (Manual) PT INR APTT Fibrinogen POC ABG pH ABG pH POC ABG pCO2 POC ABG pO2 ABG pO2 ABG HCO3 ABG O2 Saturation ABG Base Excess ABG Hemoglobin Oxyhemoglobin Sodium Potassium Chloride Carbon Dioxide BUN Creatinine Glucose POC Glucose 115 H 114 H 111 H Uric Acid Calcium Phosphorus Magnesium Iron TIBC AST ALT Total Creatine Kinase CK-MB (CK-2) Troponin T NT-Pro-B Natriuret Pep Total Protein Albumin Triglycerides HDL Cholesterol Folate Urine WBC (Auto) Urine Creatinine Urine Total Protein Vancomycin Trough 07/07/19 07/07/19 07/07/19 05:34 11:57 23:54 WBC RBC Hgb Hct MCV MCH MCHC RDW Plt Count Lymph % (Auto) [place] % (Auto) Eos % (Auto) Lymph # [place] # Eos # Seg Neutrophils % Seg Neuts % (Manual) Lymphocytes % (Manual) Monocytes % (Manual) Eosinophils % (Manual) Nucleated RBC % Seg Neutrophils # Seg Neutrophils # Man Lymphocytes # (Manual) Monocytes # (Manual) Eosinophils # (Manual) PT INR APTT Fibrinogen POC ABG pH ABG pH POC ABG pCO2 POC ABG pO2 ABG pO2 ABG HCO3 ABG O2 Saturation ABG Base Excess ABG Hemoglobin Oxyhemoglobin Sodium Potassium Chloride Carbon Dioxide BUN Creatinine Glucose POC Glucose 121 H 135 H 109 H Uric Acid Calcium Phosphorus Magnesium Iron TIBC AST ALT Total Creatine Kinase CK-MB (CK-2) Troponin T NT-Pro-B Natriuret Pep Total Protein Albumin Triglycerides HDL Cholesterol Folate Urine WBC (Auto) Urine Creatinine Urine Total Protein Vancomycin Trough 07/08/19 07/08/19 07/09/19 04:00 04:00 12:13 WBC RBC 3.30 L Hgb 9.3 L Hct 29.0 L MCV MCH MCHC RDW 19.9 H Plt Count Lymph % (Auto) [place] % (Auto) Eos % (Auto) Lymph # [place] # Eos # Seg Neutrophils % Seg Neuts % (Manual) 76.0 H Lymphocytes % (Manual) Monocytes % (Manual) Eosinophils % (Manual) Nucleated RBC % Seg Neutrophils # Seg Neutrophils # Man 8.4 H Lymphocytes # (Manual) Monocytes # (Manual) Eosinophils # (Manual) PT INR APTT Fibrinogen POC ABG pH ABG pH POC ABG pCO2 POC ABG pO2 ABG pO2 ABG HCO3 ABG O2 Saturation ABG Base Excess ABG Hemoglobin Oxyhemoglobin Sodium Potassium Chloride Carbon Dioxide BUN Creatinine 0.5 L Glucose 117 H POC Glucose 111 H Uric Acid Calcium Phosphorus Magnesium Iron TIBC AST ALT Total Creatine Kinase CK-MB (CK-2) Troponin T NT-Pro-B Natriuret Pep Total Protein Albumin Triglycerides HDL Cholesterol Folate Urine WBC (Auto) Urine Creatinine Urine Total Protein Vancomycin Trough 07/10/19 07/10/19 07/10/19 05:28 12:22 17:19 WBC RBC Hgb Hct MCV MCH MCHC RDW Plt Count Lymph % (Auto) [place] % (Auto) Eos % (Auto) Lymph # [place] # Eos # Seg Neutrophils % Seg Neuts % (Manual) Lymphocytes % (Manual) Monocytes % (Manual) Eosinophils % (Manual) Nucleated RBC % Seg Neutrophils # Seg Neutrophils # Man Lymphocytes # (Manual) Monocytes # (Manual) Eosinophils # (Manual) PT INR APTT Fibrinogen POC ABG pH ABG pH POC ABG pCO2 POC ABG pO2 ABG pO2 ABG HCO3 ABG O2 Saturation ABG Base Excess ABG Hemoglobin Oxyhemoglobin Sodium Potassium Chloride Carbon Dioxide BUN Creatinine Glucose POC Glucose 114 H 113 H 115 H Uric Acid Calcium Phosphorus Magnesium Iron TIBC AST ALT Total Creatine Kinase CK-MB (CK-2) Troponin T NT-Pro-B Natriuret Pep Total Protein Albumin Triglycerides HDL Cholesterol Folate Urine WBC (Auto) Urine Creatinine Urine Total Protein Vancomycin Trough 07/11/19 07/11/19 07/11/19 05:27 06:08 06:08 WBC 12.6 H RBC 3.26 L Hgb 9.2 L Hct 28.6 L MCV MCH MCHC RDW 19.6 H Plt Count Lymph % (Auto) [place] % (Auto) Eos % (Auto) Lymph # [place] # Eos # Seg Neutrophils % Seg Neuts % (Manual) Lymphocytes % (Manual) Monocytes % (Manual) Eosinophils % (Manual) Nucleated RBC % Seg Neutrophils # Seg Neutrophils # Man Lymphocytes # (Manual) Monocytes # (Manual) Eosinophils # (Manual) PT INR APTT Fibrinogen POC ABG pH ABG pH POC ABG pCO2 POC ABG pO2 ABG pO2 ABG HCO3 ABG O2 Saturation ABG Base Excess ABG Hemoglobin Oxyhemoglobin Sodium Potassium Chloride Carbon Dioxide 17 L D BUN Creatinine Glucose 117 H POC Glucose 114 H Uric Acid Calcium Phosphorus Magnesium Iron TIBC AST ALT Total Creatine Kinase CK-MB (CK-2) Troponin T NT-Pro-B Natriuret Pep Total Protein Albumin Triglycerides HDL Cholesterol Folate Urine WBC (Auto) Urine Creatinine Urine Total Protein Vancomycin Trough 07/12/19 07/13/19 07/13/19 18:33 03:55 03:55 WBC 11.4 H RBC 3.18 L Hgb 8.8 L Hct 27.4 L MCV MCH MCHC RDW 19.1 H Plt Count Lymph % (Auto) [place] % (Auto) Eos % (Auto) Lymph # [place] # Eos # Seg Neutrophils % Seg Neuts % (Manual) Lymphocytes % (Manual) Monocytes % (Manual) Eosinophils % (Manual) Nucleated RBC % Seg Neutrophils # Seg Neutrophils # Man Lymphocytes # (Manual) Monocytes # (Manual) Eosinophils # (Manual) PT INR APTT Fibrinogen POC ABG pH ABG pH POC ABG pCO2 POC ABG pO2 ABG pO2 ABG HCO3 ABG O2 Saturation ABG Base Excess ABG Hemoglobin Oxyhemoglobin Sodium Potassium Chloride 97.4 L Carbon Dioxide BUN Creatinine 0.5 L Glucose 121 H POC Glucose 106 H Uric Acid Calcium Phosphorus Magnesium Iron TIBC AST ALT Total Creatine Kinase CK-MB (CK-2) Troponin T NT-Pro-B Natriuret Pep Total Protein Albumin Triglycerides HDL Cholesterol Folate Urine WBC (Auto) Urine Creatinine Urine Total Protein Vancomycin Trough 07/13/19 07/13/19 07/14/19 05:08 11:52 11:50 WBC RBC Hgb Hct MCV MCH MCHC RDW Plt Count Lymph % (Auto) [place] % (Auto) Eos % (Auto) Lymph # [place] # Eos # Seg Neutrophils % Seg Neuts % (Manual) Lymphocytes % (Manual) Monocytes % (Manual) Eosinophils % (Manual) Nucleated RBC % Seg Neutrophils # Seg Neutrophils # Man Lymphocytes # (Manual) Monocytes # (Manual) Eosinophils # (Manual) PT INR APTT Fibrinogen POC ABG pH ABG pH POC ABG pCO2 POC ABG pO2 ABG pO2 ABG HCO3 ABG O2 Saturation ABG Base Excess ABG Hemoglobin Oxyhemoglobin Sodium Potassium Chloride Carbon Dioxide BUN Creatinine Glucose POC Glucose 107 H 120 H 125 H Uric Acid Calcium Phosphorus Magnesium Iron TIBC AST ALT Total Creatine Kinase CK-MB (CK-2) Troponin T NT-Pro-B Natriuret Pep Total Protein Albumin Triglycerides HDL Cholesterol Folate Urine WBC (Auto) Urine Creatinine Urine Total Protein Vancomycin Trough 07/14/19 07/15/19 07/15/19 15:52 00:21 05:50 WBC RBC Hgb Hct MCV MCH MCHC RDW Plt Count Lymph % (Auto) [place] % (Auto) Eos % (Auto) Lymph # [place] # Eos # Seg Neutrophils % Seg Neuts % (Manual) Lymphocytes % (Manual) Monocytes % (Manual) Eosinophils % (Manual) Nucleated RBC % Seg Neutrophils # Seg Neutrophils # Man Lymphocytes # (Manual) Monocytes # (Manual) Eosinophils # (Manual) PT INR APTT Fibrinogen POC ABG pH ABG pH POC ABG pCO2 POC ABG pO2 ABG pO2 ABG HCO3 ABG O2 Saturation ABG Base Excess ABG Hemoglobin Oxyhemoglobin Sodium Potassium Chloride Carbon Dioxide BUN Creatinine Glucose POC Glucose 118 H 108 H 123 H Uric Acid Calcium Phosphorus Magnesium Iron TIBC AST ALT Total Creatine Kinase CK-MB (CK-2) Troponin T NT-Pro-B Natriuret Pep Total Protein Albumin Triglycerides HDL Cholesterol Folate Urine WBC (Auto) Urine Creatinine Urine Total Protein Vancomycin Trough 07/15/19 07/15/19 07/15/19 11:38 16:33 17:36 WBC RBC Hgb Hct MCV MCH MCHC RDW Plt Count Lymph % (Auto) [place] % (Auto) Eos % (Auto) Lymph # [place] # Eos # Seg Neutrophils % Seg Neuts % (Manual) Lymphocytes % (Manual) Monocytes % (Manual) Eosinophils % (Manual) Nucleated RBC % Seg Neutrophils # Seg Neutrophils # Man Lymphocytes # (Manual) Monocytes # (Manual) Eosinophils # (Manual) PT INR APTT Fibrinogen POC ABG pH ABG pH POC ABG pCO2 POC ABG pO2 ABG pO2 ABG HCO3 ABG O2 Saturation ABG Base Excess ABG Hemoglobin Oxyhemoglobin Sodium Potassium Chloride Carbon Dioxide BUN Creatinine Glucose POC Glucose 114 H 115 H 132 H Uric Acid Calcium Phosphorus Magnesium Iron TIBC AST ALT Total Creatine Kinase CK-MB (CK-2) Troponin T NT-Pro-B Natriuret Pep Total Protein Albumin Triglycerides HDL Cholesterol Folate Urine WBC (Auto) Urine Creatinine Urine Total Protein Vancomycin Trough 07/16/19 07/16/19 07/17/19 12:33 18:57 11:53 WBC RBC Hgb Hct MCV MCH MCHC RDW Plt Count Lymph % (Auto) [place] % (Auto) Eos % (Auto) Lymph # [place] # Eos # Seg Neutrophils % Seg Neuts % (Manual) Lymphocytes % (Manual) Monocytes % (Manual) Eosinophils % (Manual) Nucleated RBC % Seg Neutrophils # Seg Neutrophils # Man Lymphocytes # (Manual) Monocytes # (Manual) Eosinophils # (Manual) PT INR APTT Fibrinogen POC ABG pH ABG pH POC ABG pCO2 POC ABG pO2 ABG pO2 ABG HCO3 ABG O2 Saturation ABG Base Excess ABG Hemoglobin Oxyhemoglobin Sodium Potassium Chloride Carbon Dioxide BUN Creatinine Glucose POC Glucose 113 H 65 L 113 H Uric Acid Calcium Phosphorus Magnesium Iron TIBC AST ALT Total Creatine Kinase CK-MB (CK-2) Troponin T NT-Pro-B Natriuret Pep Total Protein Albumin Triglycerides HDL Cholesterol Folate Urine WBC (Auto) Urine Creatinine Urine Total Protein Vancomycin Trough 07/17/19 07/18/19 07/18/19 17:42 06:24 17:03 WBC RBC Hgb Hct MCV MCH MCHC RDW Plt Count Lymph % (Auto) [place] % (Auto) Eos % (Auto) Lymph # [place] # Eos # Seg Neutrophils % Seg Neuts % (Manual) Lymphocytes % (Manual) Monocytes % (Manual) Eosinophils % (Manual) Nucleated RBC % Seg Neutrophils # Seg Neutrophils # Man Lymphocytes # (Manual) Monocytes # (Manual) Eosinophils # (Manual) PT INR APTT Fibrinogen POC ABG pH ABG pH POC ABG pCO2 POC ABG pO2 ABG pO2 ABG HCO3 ABG O2 Saturation ABG Base Excess ABG Hemoglobin Oxyhemoglobin Sodium Potassium Chloride Carbon Dioxide BUN Creatinine Glucose POC Glucose 111 H 107 H 117 H Uric Acid Calcium Phosphorus Magnesium Iron TIBC AST ALT Total Creatine Kinase CK-MB (CK-2) Troponin T NT-Pro-B Natriuret Pep Total Protein Albumin Triglycerides HDL Cholesterol Folate Urine WBC (Auto) Urine Creatinine Urine Total Protein Vancomycin Trough 07/19/19 07/20/19 07/20/19 12:24 04:33 04:33 WBC 12.3 H RBC Hgb 11.0 L Hct 33.9 L MCV MCH MCHC RDW 19.6 H Plt Count Lymph % (Auto) [place] % (Auto) Eos % (Auto) Lymph # [place] # Eos # Seg Neutrophils % 70.8 H Seg Neuts % (Manual) Lymphocytes % (Manual) Monocytes % (Manual) Eosinophils % (Manual) Nucleated RBC % Seg Neutrophils # 8.7 H Seg Neutrophils # Man Lymphocytes # (Manual) Monocytes # (Manual) Eosinophils # (Manual) PT INR APTT Fibrinogen POC ABG pH ABG pH POC ABG pCO2 POC ABG pO2 ABG pO2 ABG HCO3 ABG O2 Saturation ABG Base Excess ABG Hemoglobin Oxyhemoglobin Sodium Potassium Chloride Carbon Dioxide 20 L BUN Creatinine 0.5 L Glucose 116 H POC Glucose 110 H Uric Acid Calcium Phosphorus Magnesium Iron TIBC AST ALT Total Creatine Kinase CK-MB (CK-2) Troponin T NT-Pro-B Natriuret Pep Total Protein Albumin Triglycerides HDL Cholesterol Folate Urine WBC (Auto) Urine Creatinine Urine Total Protein Vancomycin Trough 07/20/19 07/20/19 07/21/19 12:17 23:49 05:34 WBC RBC Hgb Hct MCV MCH MCHC RDW Plt Count Lymph % (Auto) [place] % (Auto) Eos % (Auto) Lymph # [place] # Eos # Seg Neutrophils % Seg Neuts % (Manual) Lymphocytes % (Manual) Monocytes % (Manual) Eosinophils % (Manual) Nucleated RBC % Seg Neutrophils # Seg Neutrophils # Man Lymphocytes # (Manual) Monocytes # (Manual) Eosinophils # (Manual) PT INR APTT Fibrinogen POC ABG pH ABG pH POC ABG pCO2 POC ABG pO2 ABG pO2 ABG HCO3 ABG O2 Saturation ABG Base Excess ABG Hemoglobin Oxyhemoglobin Sodium Potassium Chloride Carbon Dioxide BUN Creatinine Glucose POC Glucose 117 H 108 H 116 H Uric Acid Calcium Phosphorus Magnesium Iron TIBC AST ALT Total Creatine Kinase CK-MB (CK-2) Troponin T NT-Pro-B Natriuret Pep Total Protein Albumin Triglycerides HDL Cholesterol Folate Urine WBC (Auto) Urine Creatinine Urine Total Protein Vancomycin Trough
[2019-07-22] MEDS: INSULIN LISPRO 100 UNIT/ML SUB-Q SCH ×4 (01:42→18:53)
[2019-07-22] MEDS: hydroCHLOROthiazide 25 MG TAB PO SCH (10:32)
[2019-07-22] MEDS: FERROUS SULFATE 308 MG (62mg Elemental Iron) / 7 ML ELIXIR PO SCH (10:32)
[2019-07-22] MEDS: MULTIVITAMINS 5 ML ORAL LIQUID PO SCH (10:32)
[2019-07-22] MEDS: APIXABAN 2.5 MG TAB PO SCH ×2 (10:32→23:26)
[2019-07-22] MEDS: FAMOTIDINE 20 MG TAB PO SCH ×2 (10:32→23:26)
[2019-07-22] MEDS: amLODIPine 10 MG TAB PO SCH (10:33)
--- NOTE | 2019-07-22 12:07 | Progress Note ---
Assessment and Plan Assessment and plan: Febrile illness - spiking low grade temp intermittently - Internal jugular tunneled hemodialysis catheter removed - ID following Acute respiratory failure; vent dependent/status post trach and PEG Off ventilatory support, on T-piece, cont trach care, scheduled nebulizers Pulmonary following Obesity hypoventilation syndrome Status post tracheostomy, titrate O2 sats to more than 90% Status post cardiac arrest mild anoxic brain injury EEG was negative for seizures and neurology evaluated Severe protein calorie malnutrition Oral pharyngeal dysphagia continue tube feeds Anemia of chronic disease Closely monitor H&H and transfuse as needed. 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 Now Patient is on Eliquis Acute kidney injury due to ATN Initially requiring dialysis Resolved, nephrology following. Hypernatremia/Hypokalemia/ hypomagnesemia Resolved Morbid obesity will need weight loss program upon discharge DVT prophylaxis scd /Eliquis Physical therapy/occupational therapy when patient is stable 07/16-patient with no fever as of yet since midnight 07/15. Cultures remain negative x72 hours. Patient remains vent dependent. 07/17consider to transfer out of the ICU to the floor. Continue tube feeding with aspiration precautions. Continue frequent suctioning, trach care, secretion control and airway management. Continue mobility protocols for pressu re ulcer prophylaxis. 07/18Continue tube feeding with aspiration precautions. Continue frequent marin ctioning, trach care, secretion control and airway management. Continue mobility protocols for pressure ulcer prophylaxis. 07/19Case management to discuss discharge planning options with the family today. Continue tube feeding with aspiration precautions. Continue frequent suctioning, trach care, secretion control and airway management. Continue mobility protocols for pressure ulcer prophylaxis. 07/20 - More alert, awake, follows commands. family preservation caseworker having discussions with family. 07/21- More alert,was agitated therefore restraints renewed 07/22- patient calm today, awake,alert, following commands. Stable to transfer out of unit. History Interval history: Patient with respiratory failure s/p trach and PEG Hospitalist Physical - Physical exam Narrative exam: Gen: Not in acute distress, morbidly obese HEENT: Normocephalic, atraumatic Neck: supple, no JVD,tracheostomy Heart: S1 and S2 reg, no murmurs, rubs or gallop Lungs: Clear to auscultation bilaterally, no wheeze Abd: soft, NT, non distended, normal bowel sounds,PEG Ext:No edema, no cyanosis Neuro: Awake, alert,follows commands - Constitutional Vitals: Temp Pulse Resp BP Pulse Ox 98.3 F 94 H 14 131/71 97 07/22/19 08:00 07/22/19 10:33 07/22/19 10:01 07/22/19 10:33 07/22/19 10:01 General appearance: Present: no acute distress, obese, other (tracheostomy /T- piece) Results - Labs CBC & Chem 7: 07/20/19 04:33 07/20/19 04:33 Labs: Laboratory Last Values WBC 12.3 K/mm3 (4.5-11.0) H 07/20/19 04:33 RBC 3.87 M/mm3 (3.65-5.03) 07/20/19 04:33 Hgb 11.0 gm/dl (11.8-15.2) L 07/20/19 04:33 Hct 33.9 % (35.5-45.6) L 07/20/19 04:33 MCV 88 fl (84-94) 07/20/19 04:33 MCH 29 pg (28-32) 07/20/19 04:33 MCHC 33 % (32-34) 07/20/19 04:33 RDW 19.6 % (13.2-15.2) H 07/20/19 04:33 Plt Count 385 K/mm3 (140-440) 07/20/19 04:33 Lymph % (Auto) 19.2 % (13.4-35.0) 07/20/19 04:33 [place] % (Auto) 6.1 % (0.0-7.3) 07/20/19 04:33 Eos % (Auto) 2.8 % (0.0-4.3) 07/20/19 04:33 Baso % (Auto) 1.1 % (0.0-1.8) 07/20/19 04:33 Lymph # 2.4 K/mm3 (1.2-5.4) 07/20/19 04:33 Rock # 0.8 K/mm3 (0.0-0.8) 07/20/19 04:33 Eos # 0.3 K/mm3 (0.0-0.4) 07/20/19 04:33 Baso # 0.1 K/mm3 (0.0-0.1) 07/20/19 04:33 Add Manual Diff Complete 07/08/19 04:00 Total Counted 100 07/08/19 04:00 Seg Neutrophils % 70.8 % (40.0-70.0) H 07/20/19 04:33 Seg Neuts % (Manual) 76.0 % (40.0-70.0) H 07/08/19 04:00 Band Neutrophils % 0 % 07/08/19 04:00 Lymphocytes % (Manual) 16.0 % (13.4-35.0) 07/08/19 04:00 Reactive Lymphs % (Man) 0 % 07/08/19 04:00 Monocytes % (Manual) 6.0 % (0.0-7.3) 07/08/19 04:00 Eosinophils % (Manual) 2.0 % (0.0-4.3) 07/08/19 04:00 Basophils % (Manual) 0 % (0.0-1.8) 07/08/19 04:00 Metamyelocytes % 0 % 07/08/19 04:00 Myelocytes % 0 % 07/08/19 04:00 Promyelocytes % 0 % 07/08/19 04:00 Blast Cells % 0 % 07/08/19 04:00 Nucleated RBC % Not Reportable 07/08/19 04:00 Seg Neutrophils # 8.7 K/mm3 (1.8-7.7) H 07/20/19 04:33 Seg Neutrophils # Man 8.4 K/mm3 (1.8-7.7) H 07/08/19 04:00 Band Neutrophils # 0.0 K/mm3 07/08/19 04:00 Lymphocytes # (Manual) 1.8 K/mm3 (1.2-5.4) 07/08/19 04:00 Abs React Lymphs (Man) 0.0 K/mm3 07/08/19 04:00 Monocytes # (Manual) 0.7 K/mm3 (0.0-0.8) 07/08/19 04:00 Eosinophils # (Manual) 0.2 K/mm3 (0.0-0.4) 07/08/19 04:00 Basophils # (Manual) 0.0 K/mm3 (0.0-0.1) 07/08/19 04:00 Metamyelocytes # 0.0 K/mm3 07/08/19 04:00 Myelocytes # 0.0 K/mm3 07/08/19 04:00 Promyelocytes # 0.0 K/mm3 07/08/19 04:00 Blast Cells # 0.0 K/mm3 07/08/19 04:00 WBC Morphology Not Reportable 07/08/19 04:00 Hypersegmented Neuts Not Reportable 07/08/19 04:00 Hyposegmented Neuts Not Reportable 07/08/19 04:00 Hypogranular Neuts Not Reportable 07/08/19 04:00 Smudge Cells Not Reportable 07/08/19 04:00 Toxic Granulation Not Reportable 07/08/19 04:00 Toxic Vacuolation Not Reportable 07/08/19 04:00 Dohle Bodies Not Reportable 07/08/19 04:00 Pelger-Huet Anomaly Not Reportable 07/08/19 04:00 Renea Rods Not Reportable 07/08/19 04:00 Platelet Estimate Consistent w auto 07/08/19 04:00 Clumped Platelets Not Reportable 07/08/19 04:00 Plt Clumps, EDTA Not Reportable 07/08/19 04:00 Large Platelets Not Reportable 07/08/19 04:00 Giant Platelets Not Reportable 07/08/19 04:00 Platelet Satelliting Not Reportable 07/08/19 04:00 Plt Morphology Comment Not Reportable 07/08/19 04:00 RBC Morphology Not Reportable 07/08/19 04:00 Dimorphic RBCs Not Reportable 07/08/19 04:00 Polychromasia Not Reportable 07/08/19 04:00 Hypochromasia Not Reportable 07/08/19 04:00 Poikilocytosis Not Reportable 07/08/19 04:00 Anisocytosis 1+ 07/08/19 04:00 Microcytosis Not Reportable 07/08/19 04:00 Macrocytosis Not Reportable 07/08/19 04:00 Spherocytes Not Reportable 07/08/19 04:00 Pappenheimer Bodies Not Reportable 07/08/19 04:00 Sickle Cells Not Reportable 07/08/19 04:00 Target Cells Not Reportable 07/08/19 04:00 Tear Drop Cells Not Reportable 07/08/19 04:00 Ovalocytes Not Reportable 07/08/19 04:00 Stomatocytes 3+ 06/23/19 05:24 Helmet Cells Not Reportable 07/08/19 04:00 [place] Bodies Not Reportable 07/08/19 04:00 [place] Rings Not Reportable 07/08/19 04:00 [place] Cells Not Reportable 07/08/19 04:00 Bite Cells Not Reportable 07/08/19 04:00 Crenated Cell Not Reportable 07/08/19 04:00 Elliptocytes Not Reportable 07/08/19 04:00 Acanthocytes (Spur) Not Reportable 07/08/19 04:00 Rouleaux Not Reportable 07/08/19 04:00 Hemoglobin C Crystals Not Reportable 07/08/19 04:00 Schistocytes Not Reportable 07/08/19 04:00 Malaria parasites Not Reportable 07/08/19 04:00 Syed Bodies Not Reportable 07/08/19 04:00 Hem Pathologist Commnt No 07/08/19 04:00 PT 15.4 Sec. (12.2-14.9) H 05/01/19 Unknown INR 1.23 (0.87-1.13) H 05/01/19 Unknown APTT 22.7 Sec. (24.2-36.6) L 05/01/19 Unknown Fibrinogen 194 mg/dl (211-480) L 06/17/19 12:45 Heparin Anti-Xa, Unfract Negative (Negative) 06/17/19 12:45 POC ABG pH 7.462 (7.35-7.45) H 06/05/19 03:52 ABG pH 7.469 pH Units (7.350-7.450) H 06/23/19 02:00 POC ABG pCO2 39.8 (35-45) 06/05/19 03:52 ABG pCO2 39.4 mm Hg 06/23/19 02:00 POC ABG pO2 86 (80-105) 06/05/19 03:52 ABG pO2 58.7 mm Hg (80.0-90.0) L 06/23/19 02:00 POC ABG HCO3 28.4 (22-26 mml/L) 06/05/19 03:52 ABG HCO3 28.0 mmol/L (20.0-26.0) H 06/23/19 02:00 POC ABG Total CO2 30 (23-27mmol/L) 06/05/19 03:52 POC ABG O2 Sat 97 06/05/19 03:52 ABG O2 Saturation 94.6 % (95.0-99.0) L 06/23/19 02:00 ABG O2 Content 9.2 (0.0-44) 06/23/19 02:00 POC ABG Base Excess 5 ((-2) - (+3)mmol/L) 06/05/19 03:52 ABG Base Excess 4.0 mmol/L (-2.0-3.0) H 06/23/19 02:00 ABG Hemoglobin 7.1 gm/dl (14.0-18.0) L 06/23/19 02:00 ABG Carboxyhemoglobin 2.0 % (0.0-5.0) 06/23/19 02:00 ABG Methemoglobin 0.5 % (0.0-1.5) 06/23/19 02:00 Oxyhemoglobin 92.2 % (95.0-99.0) L 06/23/19 02:00 FiO2 30 % 06/23/19 02:00 Sodium 140 mmol/L (137-145) 07/20/19 04:33 Potassium 4.0 mmol/L (3.6-5.0) 07/20/19 04:33 Chloride 99.4 mmol/L (98-107) 07/20/19 04:33 Carbon Dioxide 20 mmol/L (22-30) L 07/20/19 04:33 Anion Gap 25 mmol/L 07/20/19 04:33 BUN 9 mg/dL (9-20) 07/20/19 04:33 Creatinine 0.5 mg/dL (0.8-1.5) L 07/20/19 04:33 Estimated GFR > 60 ml/min 07/20/19 04:33 BUN/Creatinine Ratio 18 % 07/20/19 04:33 Glucose 116 mg/dL (75-100) H 07/20/19 04:33 POC Glucose 80 (70-105) 07/22/19 11:58 Osmolality 327 Mosm/kg 05/07/19 13:45 Uric Acid 18.0 mg/dL (3.5-7.6) H 05/07/19 13:45 Calcium 10.0 mg/dL (8.4-10.2) 07/20/19 04:33 Phosphorus 3.70 mg/dL (2.5-4.5) 06/10/19 05:45 Magnesium 1.60 mg/dL (1.7-2.3) L 06/26/19 04:43 Iron 45 ug/dL (49-181) L 06/20/19 09:12 TIBC 110 mcg/dL (250-450) L 06/20/19 09:12 Ferritin 315.2 ng/mL (13.0-400.0) 06/20/19 09:12 Total Bilirubin 0.50 mg/dL (0.1-1.2) 06/08/19 04:20 AST 23 units/L (5-40) 06/08/19 04:20 ALT 66 units/L (7-56) H 06/08/19 04:20 Alkaline Phosphatase 59 units/L (35-129) 06/08/19 04:20 Total Creatine Kinase 131 units/L (55-170) 05/02/19 04:41 CK-MB (CK-2) 5.2 ng/mL (0.0-4.0) H 05/02/19 04:41 CK-MB (CK-2) Rel Index 3.9 (0-4) 05/02/19 04:41 Troponin T 0.067 ng/mL (0.00-0.029) H D 05/02/19 04:41 NT-Pro-B Natriuret Pep 6831 pg/mL (0-450) H 05/01/19 Unknown Total Protein 5.5 g/dL (6.3-8.2) L 06/08/19 04:20 Albumin 2.9 g/dL (3.9-5) L 06/08/19 04:20 Albumin/Globulin Ratio 1.1 % 06/08/19 04:20 Triglycerides 210 mg/dL (2-149) H 06/19/19 04:30 Cholesterol 173 mg/dL (50-199) 05/02/19 00:06 LDL Cholesterol Direct 126 mg/dL (50-130) 05/02/19 00:06 HDL Cholesterol 18 mg/dL (40-59) L 05/02/19 00:06 Cholesterol/HDL Ratio 9.61 % 05/02/19 00:06 Serotonin Release Assay See scanned results 06/17/19 12:45 Vitamin B12 353.0 pg/mL (211-911) 06/20/19 09:12 Folate 7.01 ng/mL (7.3-26.0) L 06/20/19 09:12 Procalcitonin 0.05 ng/mL (<0.15) 06/17/19 12:45 Urine Color Yellow (Yellow) 06/17/19 12:45 Urine Turbidity Slightly-cloudy (Clear) 06/17/19 12:45 Urine pH 5.0 (5.0-7.0) 06/17/19 12:45 Ur Specific [place] 1.013 (1.003-1.030) 06/17/19 12:45 Urine Protein <15 mg/dl mg/dL (Negative) 06/17/19 12:45 Urine Glucose (UA) Neg mg/dL (Negative) 06/17/19 12:45 Urine Ketones Neg mg/dL (Negative) 06/17/19 12:45 Urine Blood Sm (Negative) 06/17/19 12:45 Urine Nitrite Neg (Negative) 06/17/19 12:45 Urine Bilirubin Neg (Negative) 06/17/19 12:45 Urine Urobilinogen < 2.0 mg/dL (<2.0) 06/17/19 12:45 Ur Leukocyte Esterase Neg (Negative) 06/17/19 12:45 Urine WBC (Auto) 2.0 /HPF (0.0-6.0) 06/17/19 12:45 Urine RBC (Auto) 2.0 /HPF (0.0-6.0) 06/17/19 12:45 U Epithel Cells (Auto) < 1.0 /HPF (0-13.0) 06/17/19 12:45 Urine Bacteria (Auto) 1+ /HPF (Negative) 05/20/19 12:00 Uric Acid Crystals 3+ 05/03/19 10:55 Urine Mucus Few /HPF 06/17/19 12:45 Urine Yeast (Budding) 3+ /HPF 05/20/19 12:00 Urine Creatinine 292.8 mg/dL (0.1-20.0) H 05/07/19 22:40 Urine Sodium 11 mmol/L 05/07/19 22:40 Urine Total Protein 269 mg/dL (5-11.8) H 05/07/19 22:40 Vancomycin Trough 20.5 ug/mL (5.0-20.0) H 05/15/19 09:00 Random Vancomycin 11.5 ug/mL (0-40.0) 05/27/19 06:00 AMNA Screen Negative (Negative) 05/07/19 13:45 Heparin-induced Plt Ab Negative (Negative) 06/17/19 12:45 UF Heparin High Dose 13 % Release 06/17/19 12:45 YUNG UFH Low Dose 0.1 8 % Release 06/17/19 12:45 YUNG UFH Low Dose 0.5 7 % Release 06/17/19 12:45 Hepatitis A IgM Ab Non-reactive (NonReactive) 05/07/19 13:45 Hep Bs Antigen Non-reactive (Negative) 05/07/19 13:45 Hep B Core IgM Ab Non-reactive (NonReactive) 05/07/19 13:45 Hepatitis C Antibody Non-reactive (NonReactive) 05/07/19 13:45 Influenza A (Rapid) Negative (Negative) 06/17/19 11:35 Influenza B (Rapid) Negative (Negative) 06/17/19 11:35 Active Medications - Current Medications Current Medications: Generic Name Dose Route Start Last Admin Trade Name Freq PRN Reason Stop Dose Admin Acetaminophen 650 mg 07/02/19 23:56 07/18/19 05:16 Tylenol PO 650 mg Q4H PRN Administration Pain, Mild (1-3) Amlodipine Besylate 10 mg 06/25/19 11:00 07/22/19 10:33 Amlodipine PO 10 mg DAILY VICKEY Administration Lipase/Protease/Amylase 1 each 07/15/19 12:26 Pancreaze 10,500 Unit FEEDTUBE PRN PRN For Clogged Feeding Tube Apixaban 2.5 mg 06/23/19 22:00 07/22/19 10:32 Eliquis PO 2.5 mg Q12HR VICKEY Administration Protocol Dextrose 50 gm 05/01/19 20:24 D50w (25gm) Vial IV Q30MIN PRN Hypoglycemia Protocol Famotidine 20 mg 06/17/19 10:00 07/22/19 10:32 Pepcid PO 20 mg BID VICKEY Administration Ferrous Sulfate 308 mg 06/18/19 12:00 07/22/19 10:32 Ferrous Sulfate PO 308 mg QDAY VICKEY Administration Hydrochlorothiazide 25 mg 06/26/19 11:00 07/22/19 10:32 Hctz PO 25 mg QDAY VICKEY Administration Insulin Human Lispro 0 unit 06/01/19 14:00 07/22/19 05:58 Humalog SUB-Q Not Given Q6HR [facility] Protocol Labetalol HCl 200 mg 06/28/19 10:00 07/22/19 05:22 Labetalol PO 200 mg Q8HR VICKEY Administration Multi-Ingred Cream/Lotion/Oil/Oint 1 applic 06/16/19 18:00 Artificial Tears Ophth Oint OU Q4HR PRN Dry Eye(s) Multivitamins 5 ml 06/29/19 12:00 07/22/19 10:32 Centrum Liq PO 5 ml QDAY VICKEY Administration Scopolamine 1 each 06/27/19 09:00 07/21/19 09:37 Transderm-Scop TD 1 each Q3D VICKEY Administration Simple Syrup 15 ml 07/15/19 12:26 Simple Syrup FEEDTUBE PRN PRN Hypoglycemia Simple Syrup 30 ml 07/15/19 12:26 Simple Syrup FEEDTUBE PRN PRN Hypoglycemia Sodium Bicarbonate 325 mg 07/15/19 12:26 Sodium Bicarbonate FEEDTUBE PRN PRN For Clogged Feeding Tube Nutrition/Malnutrition Assess - Dietary Evaluation Nutrition/Malnutrition Findings: Nutrition Notes Start: 05/04/19 12:54 Freq: Status: Active Protocol: Document 07/21/19 10:49 CT (Rec: 07/21/19 10:53 CT [email or web address]) Co-Sign 07/21/19 10:49 LP Nutrition Notes Initial or Follow up Reassessment Current Diagnosis Acute Kidney Injury,Sepsis, Respiratory Failure Current Diet Osmolite 1.5 at 60 ml/hr Labs/Tests Glu 116 Pertinent Medications Humalog Height 6 ft 4 in Weight 189.8 kg [place] Body Weight (kg) 91.81 BMI 50.9 Weight Status Morbidly Obese Subjective/Other Information Osmolite running at 60 ml/hr at time of visit. Pt tolerating TF. No definite POC noted by RN at this time. Percent of energy/protein needs met: 100%/100% Burn Absent Trauma Absent GI Symptoms None Current % PO Negligible Minimum of two criteria No Fluid Accumulation Moderate to Severe (severe) #1 Nutrition Diagnosis Inadequate oral intake Diagnosis Progress(for reassessment Continues documentation) Is patient on ventilator? Yes Is Patient Ambulatory and/or Out of Bed No [facility] 3534.288 Kcal/Kg value to use for calculation 11 Approximate Energy Requirements Using 2088 kcal/Kg Calculation Used for Recommendations Kcal/kg Additional Notes PRO needs: 73-91g (0.8-1 g/kg IBW 91kg CARLA resolved) Fluid needs: 1 ml/kcal Nutrition Intervention Change Diet Order: Continue TF Nutrition Support: Osmolite at 60 ml/hr Flush 200 ml q4h Kcal 2,160 Protein (gm) 90 Fluid (mL) 1,097 Goal #1 TF tolerance Goal #2 Meet at least 80% of PRO/kcal needs via TF Anticipated Discharge Needs: Unable to determine at this time Follow-Up By: 07/30/19 Additional Comments Follow up for TF/POC
[2019-07-22] MEDS ORDERED: ONDANSETRON 4 MG/2 ML INJ IV PRN (16:14)
--- NOTE | 2019-07-22 16:26 | Vascular Lab Report ---
DUPLEX DOPPLER BILATERAL LOWER EXTREMITY VEINS INDICATION: Pain both lower ext FINDINGS: There is no thrombus within the deep veins of either lower extremity from the common femoral to the c nelly veins. There is normal compression and augmentation on spectral analysis. IMPRESSION: No sonographic evidence for DVT in either lower extremity. Signer Name: Rahul Issa MD Signed: 07/22/2019 4:22 PM Workstation Name: [id number]
[2019-07-23] MEDS: INSULIN LISPRO 100 UNIT/ML SUB-Q SCH ×4 (00:46→17:28)
[2019-07-23 06:34] LABS: Hematocrit 29.7 % (35.5-45.6); Hemoglobin 9.6 gm/dl (11.8-15.2); Mean Corpuscular HGB Conc 32 % (32-34); Mean Corpuscular Volume 87 fl (84-94); Platelet Count 353 K/mm3 (140-440); Red Blood Count 3.41 M/mm3 (3.65-5.03); Red Cell Distribution Width 19.1 % (13.2-15.2)
[2019-07-23 06:58] LABS: BUN/Creatinine Ratio 16; Blood Urea Nitrogen 8 mg/dL (9-20); Calcium 9.8 mg/dL (8.4-10.2); Hemolysis Index 5
[2019-07-23] MEDS: FAMOTIDINE 20 MG TAB PO SCH ×2 (11:40→21:33)
[2019-07-23] MEDS: hydroCHLOROthiazide 25 MG TAB PO SCH (11:41)
[2019-07-23] MEDS: MULTIVITAMINS 5 ML ORAL LIQUID PO SCH (11:41)
[2019-07-23] MEDS: amLODIPine 10 MG TAB PO SCH (11:41)
[2019-07-23] MEDS: FERROUS SULFATE 308 MG (62mg Elemental Iron) / 7 ML ELIXIR PO SCH (11:41)
[2019-07-23] MEDS: APIXABAN 2.5 MG TAB PO SCH ×2 (11:41→21:33)
--- NOTE | 2019-07-23 16:11 | Progress Note ---
Assessment and Plan Assessment and plan: Febrile illness - spiking low grade temp intermittently - Internal jugular tunneled hemodialysis catheter removed - ID following Acute respiratory failure; vent dependent/status post trach and PEG Off ventilatory support, on T-piece, cont trach care, scheduled nebulizers Pulmonary following Obesity hypoventilation syndrome Status post tracheostomy, titrate O2 sats to more than 90% Status post cardiac arrest mild anoxic brain injury EEG was negative for seizures and neurology evaluated Severe protein calorie malnutrition Oral pharyngeal dysphagia continue tube feeds Anemia of chronic disease Closely monitor H&H and transfuse as needed. 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 Now Patient is on Eliquis Acute kidney injury due to ATN Initially requiring dialysis Resolved, nephrology following. Hypernatremia/Hypokalemia/ hypomagnesemia Resolved Morbid obesity will need weight loss program upon discharge DVT prophylaxis scd /Eliquis Physical therapy/occupational therapy when patient is stable 07/16-patient with no fever as of yet since midnight 07/15. Cultures remain negative x72 hours. Patient remains vent dependent. 07/17consider to transfer out of the ICU to the floor. Continue tube feeding with aspiration precautions. Continue frequent suctioning, trach care, secretion control and airway management. Continue mobility protocols for pressu re ulcer prophylaxis. 07/18Continue tube feeding with aspiration precautions. Continue frequent marin ctioning, trach care, secretion control and airway management. Continue mobility protocols for pressure ulcer prophylaxis. 07/19Case management to discuss discharge planning options with the family today. Continue tube feeding with aspiration precautions. Continue frequent suctioning, trach care, secretion control and airway management. Continue mobility protocols for pressure ulcer prophylaxis. 07/20 - More alert, awake, follows commands. medical case manager having discussions with family. 07/21- More alert,was agitated therefore restraints renewed 07/22- patient calm today, awake,alert, following commands. Stable to transfer out of unit. 07/23 patient now in Tele History Interval history: Patient with respiratory failure s/p trach and PEG Hospitalist Physical - Physical exam Narrative exam: Gen: Not in acute distress, morbidly obese HEENT: Normocephalic, atraumatic Neck: supple, no JVD,tracheostomy Heart: S1 and S2 reg, no murmurs, rubs or gallop Lungs: Clear to auscultation bilaterally, no wheeze Abd: soft, NT, non distended, normal bowel sounds,PEG Ext:No edema, no cyanosis Neuro: Awake, alert,follows commands - Constitutional Vitals: Temp Pulse Resp BP Pulse Ox 98.6 F 97 H 20 132/63 100 07/23/19 12:24 07/23/19 12:24 07/23/19 12:24 07/23/19 12:24 07/23/19 15:47 General appearance: Present: no acute distress, obese, other (tracheostomy /T- piece) Results - Labs CBC & Chem 7: 07/23/19 05:28 07/23/19 05:28 Labs: Laboratory Last Values WBC 11.0 K/mm3 (4.5-11.0) 07/23/19 05:28 RBC 3.41 M/mm3 (3.65-5.03) L 07/23/19 05:28 Hgb 9.6 gm/dl (11.8-15.2) L 07/23/19 05:28 Hct 29.7 % (35.5-45.6) L 07/23/19 05:28 MCV 87 fl (84-94) 07/23/19 05:28 MCH 28 pg (28-32) 07/23/19 05:28 MCHC 32 % (32-34) 07/23/19 05:28 RDW 19.1 % (13.2-15.2) H 07/23/19 05:28 Plt Count 353 K/mm3 (140-440) 07/23/19 05:28 Lymph % (Auto) 19.2 % (13.4-35.0) 07/20/19 04:33 [place] % (Auto) 6.1 % (0.0-7.3) 07/20/19 04:33 Eos % (Auto) 2.8 % (0.0-4.3) 07/20/19 04:33 Baso % (Auto) 1.1 % (0.0-1.8) 07/20/19 04:33 Lymph # 2.4 K/mm3 (1.2-5.4) 07/20/19 04:33 [place] # 0.8 K/mm3 (0.0-0.8) 07/20/19 04:33 Eos # 0.3 K/mm3 (0.0-0.4) 07/20/19 04:33 Baso # 0.1 K/mm3 (0.0-0.1) 07/20/19 04:33 Add Manual Diff Complete 07/08/19 04:00 Total Counted 100 07/08/19 04:00 Seg Neutrophils % 70.8 % (40.0-70.0) H 07/20/19 04:33 Seg Neuts % (Manual) 76.0 % (40.0-70.0) H 07/08/19 04:00 Band Neutrophils % 0 % 07/08/19 04:00 Lymphocytes % (Manual) 16.0 % (13.4-35.0) 07/08/19 04:00 Reactive Lymphs % (Man) 0 % 07/08/19 04:00 Monocytes % (Manual) 6.0 % (0.0-7.3) 07/08/19 04:00 Eosinophils % (Manual) 2.0 % (0.0-4.3) 07/08/19 04:00 Basophils % (Manual) 0 % (0.0-1.8) 07/08/19 04:00 Metamyelocytes % 0 % 07/08/19 04:00 Myelocytes % 0 % 07/08/19 04:00 Promyelocytes % 0 % 07/08/19 04:00 Blast Cells % 0 % 07/08/19 04:00 Nucleated RBC % Not Reportable 07/08/19 04:00 Seg Neutrophils # 8.7 K/mm3 (1.8-7.7) H 07/20/19 04:33 Seg Neutrophils # Man 8.4 K/mm3 (1.8-7.7) H 07/08/19 04:00 Band Neutrophils # 0.0 K/mm3 07/08/19 04:00 Lymphocytes # (Manual) 1.8 K/mm3 (1.2-5.4) 07/08/19 04:00 Abs React Lymphs (Man) 0.0 K/mm3 07/08/19 04:00 Monocytes # (Manual) 0.7 K/mm3 (0.0-0.8) 07/08/19 04:00 Eosinophils # (Manual) 0.2 K/mm3 (0.0-0.4) 07/08/19 04:00 Basophils # (Manual) 0.0 K/mm3 (0.0-0.1) 07/08/19 04:00 Metamyelocytes # 0.0 K/mm3 07/08/19 04:00 Myelocytes # 0.0 K/mm3 07/08/19 04:00 Promyelocytes # 0.0 K/mm3 07/08/19 04:00 Blast Cells # 0.0 K/mm3 07/08/19 04:00 WBC Morphology Not Reportable 07/08/19 04:00 Hypersegmented Neuts Not Reportable 07/08/19 04:00 Hyposegmented Neuts Not Reportable 07/08/19 04:00 Hypogranular Neuts Not Reportable 07/08/19 04:00 Smudge Cells Not Reportable 07/08/19 04:00 Toxic Granulation Not Reportable 07/08/19 04:00 Toxic Vacuolation Not Reportable 07/08/19 04:00 Dohle Bodies Not Reportable 07/08/19 04:00 Pelger-Huet Anomaly Not Reportable 07/08/19 04:00 Renea Rods Not Reportable 07/08/19 04:00 Platelet Estimate Consistent w auto 07/08/19 04:00 Clumped Platelets Not Reportable 07/08/19 04:00 Plt Clumps, EDTA Not Reportable 07/08/19 04:00 Large Platelets Not Reportable 07/08/19 04:00 Giant Platelets Not Reportable 07/08/19 04:00 Platelet Satelliting Not Reportable 07/08/19 04:00 Plt Morphology Comment Not Reportable 07/08/19 04:00 RBC Morphology Not Reportable 07/08/19 04:00 Dimorphic RBCs Not Reportable 07/08/19 04:00 Polychromasia Not Reportable 07/08/19 04:00 Hypochromasia Not Reportable 07/08/19 04:00 Poikilocytosis Not Reportable 07/08/19 04:00 Anisocytosis 1+ 07/08/19 04:00 Microcytosis Not Reportable 07/08/19 04:00 Macrocytosis Not Reportable 07/08/19 04:00 Spherocytes Not Reportable 07/08/19 04:00 Pappenheimer Bodies Not Reportable 07/08/19 04:00 Sickle Cells Not Reportable 07/08/19 04:00 Target Cells Not Reportable 07/08/19 04:00 Tear Drop Cells Not Reportable 07/08/19 04:00 Ovalocytes Not Reportable 07/08/19 04:00 Stomatocytes 3+ 06/23/19 05:24 Helmet Cells Not Reportable 07/08/19 04:00 [place] Bodies Not Reportable 07/08/19 04:00 [place] Rings Not Reportable 07/08/19 04:00 [place] Cells Not Reportable 07/08/19 04:00 Bite Cells Not Reportable 07/08/19 04:00 Crenated Cell Not Reportable 07/08/19 04:00 Elliptocytes Not Reportable 07/08/19 04:00 Acanthocytes (Spur) Not Reportable 07/08/19 04:00 Rouleaux Not Reportable 07/08/19 04:00 Hemoglobin C Crystals Not Reportable 07/08/19 04:00 Schistocytes Not Reportable 07/08/19 04:00 Malaria parasites Not Reportable 07/08/19 04:00 Syed Bodies Not Reportable 07/08/19 04:00 Hem Pathologist Commnt No 07/08/19 04:00 PT 15.4 Sec. (12.2-14.9) H 05/01/19 Unknown INR 1.23 (0.87-1.13) H 05/01/19 Unknown APTT 22.7 Sec. (24.2-36.6) L 05/01/19 Unknown Fibrinogen 194 mg/dl (211-480) L 06/17/19 12:45 Heparin Anti-Xa, Unfract Negative (Negative) 06/17/19 12:45 POC ABG pH 7.462 (7.35-7.45) H 06/05/19 03:52 ABG pH 7.469 pH Units (7.350-7.450) H 06/23/19 02:00 POC ABG pCO2 39.8 (35-45) 06/05/19 03:52 ABG pCO2 39.4 mm Hg 06/23/19 02:00 POC ABG pO2 86 (80-105) 06/05/19 03:52 ABG pO2 58.7 mm Hg (80.0-90.0) L 06/23/19 02:00 POC ABG HCO3 28.4 (22-26 mml/L) 06/05/19 03:52 ABG HCO3 28.0 mmol/L (20.0-26.0) H 06/23/19 02:00 POC ABG Total CO2 30 (23-27mmol/L) 06/05/19 03:52 POC ABG O2 Sat 97 06/05/19 03:52 ABG O2 Saturation 94.6 % (95.0-99.0) L 06/23/19 02:00 ABG O2 Content 9.2 (0.0-44) 06/23/19 02:00 POC ABG Base Excess 5 ((-2) - (+3)mmol/L) 06/05/19 03:52 ABG Base Excess 4.0 mmol/L (-2.0-3.0) H 06/23/19 02:00 ABG Hemoglobin 7.1 gm/dl (14.0-18.0) L 06/23/19 02:00 ABG Carboxyhemoglobin 2.0 % (0.0-5.0) 06/23/19 02:00 ABG Methemoglobin 0.5 % (0.0-1.5) 06/23/19 02:00 Oxyhemoglobin 92.2 % (95.0-99.0) L 06/23/19 02:00 FiO2 30 % 06/23/19 02:00 Sodium 139 mmol/L (137-145) 07/23/19 05:28 Potassium 3.9 mmol/L (3.6-5.0) 07/23/19 05:28 Chloride 98.2 mmol/L (98-107) 07/23/19 05:28 Carbon Dioxide 22 mmol/L (22-30) 07/23/19 05:28 Anion Gap 23 mmol/L 07/23/19 05:28 BUN 8 mg/dL (9-20) L 07/23/19 05:28 Creatinine 0.5 mg/dL (0.8-1.5) L 07/23/19 05:28 Estimated GFR > 60 ml/min 07/23/19 05:28 BUN/Creatinine Ratio 16 % 07/23/19 05:28 Glucose 97 mg/dL (75-100) 07/23/19 05:28 POC Glucose 121 (70-105) H 07/23/19 14:26 Osmolality 327 Mosm/kg 05/07/19 13:45 Uric Acid 18.0 mg/dL (3.5-7.6) H 05/07/19 13:45 Calcium 9.8 mg/dL (8.4-10.2) 07/23/19 05:28 Phosphorus 3.70 mg/dL (2.5-4.5) 06/10/19 05:45 Magnesium 1.60 mg/dL (1.7-2.3) L 06/26/19 04:43 Iron 45 ug/dL (49-181) L 06/20/19 09:12 TIBC 110 mcg/dL (250-450) L 06/20/19 09:12 Ferritin 315.2 ng/mL (13.0-400.0) 06/20/19 09:12 Total Bilirubin 0.50 mg/dL (0.1-1.2) 06/08/19 04:20 AST 23 units/L (5-40) 06/08/19 04:20 ALT 66 units/L (7-56) H 06/08/19 04:20 Alkaline Phosphatase 59 units/L (35-129) 06/08/19 04:20 Total Creatine Kinase 131 units/L (55-170) 05/02/19 04:41 CK-MB (CK-2) 5.2 ng/mL (0.0-4.0) H 05/02/19 04:41 CK-MB (CK-2) Rel Index 3.9 (0-4) 05/02/19 04:41 Troponin T 0.067 ng/mL (0.00-0.029) H D 05/02/19 04:41 NT-Pro-B Natriuret Pep 6831 pg/mL (0-450) H 05/01/19 Unknown Total Protein 5.5 g/dL (6.3-8.2) L 06/08/19 04:20 Albumin 2.9 g/dL (3.9-5) L 06/08/19 04:20 Albumin/Globulin Ratio 1.1 % 06/08/19 04:20 Triglycerides 210 mg/dL (2-149) H 06/19/19 04:30 Cholesterol 173 mg/dL (50-199) 05/02/19 00:06 LDL Cholesterol Direct 126 mg/dL (50-130) 05/02/19 00:06 HDL Cholesterol 18 mg/dL (40-59) L 05/02/19 00:06 Cholesterol/HDL Ratio 9.61 % 05/02/19 00:06 Serotonin Release Assay See scanned results 06/17/19 12:45 Vitamin B12 353.0 pg/mL (211-911) 06/20/19 09:12 Folate 7.01 ng/mL (7.3-26.0) L 06/20/19 09:12 Procalcitonin 0.05 ng/mL (<0.15) 06/17/19 12:45 Urine Color Yellow (Yellow) 06/17/19 12:45 Urine Turbidity Slightly-cloudy (Clear) 06/17/19 12:45 Urine pH 5.0 (5.0-7.0) 06/17/19 12:45 Ur Specific [place] 1.013 (1.003-1.030) 06/17/19 12:45 Urine Protein <15 mg/dl mg/dL (Negative) 06/17/19 12:45 Urine Glucose (UA) Neg mg/dL (Negative) 06/17/19 12:45 Urine Ketones Neg mg/dL (Negative) 06/17/19 12:45 Urine Blood Sm (Negative) 06/17/19 12:45 Urine Nitrite Neg (Negative) 06/17/19 12:45 Urine Bilirubin Neg (Negative) 06/17/19 12:45 Urine Urobilinogen < 2.0 mg/dL (<2.0) 06/17/19 12:45 Ur Leukocyte Esterase Neg (Negative) 06/17/19 12:45 Urine WBC (Auto) 2.0 /HPF (0.0-6.0) 06/17/19 12:45 Urine RBC (Auto) 2.0 /HPF (0.0-6.0) 06/17/19 12:45 U Epithel Cells (Auto) < 1.0 /HPF (0-13.0) 06/17/19 12:45 Urine Bacteria (Auto) 1+ /HPF (Negative) 05/20/19 12:00 Uric Acid Crystals 3+ 05/03/19 10:55 Urine Mucus Few /HPF 06/17/19 12:45 Urine Yeast (Budding) 3+ /HPF 05/20/19 12:00 Urine Creatinine 292.8 mg/dL (0.1-20.0) H 05/07/19 22:40 Urine Sodium 11 mmol/L 05/07/19 22:40 Urine Total Protein 269 mg/dL (5-11.8) H 05/07/19 22:40 Vancomycin Trough 20.5 ug/mL (5.0-20.0) H 05/15/19 09:00 Random Vancomycin 11.5 ug/mL (0-40.0) 05/27/19 06:00 AMNA Screen Negative (Negative) 05/07/19 13:45 Heparin-induced Plt Ab Negative (Negative) 06/17/19 12:45 UF Heparin High Dose 13 % Release 06/17/19 12:45 YUNG UFH Low Dose 0.1 8 % Release 06/17/19 12:45 YUNG UFH Low Dose 0.5 7 % Release 06/17/19 12:45 Hepatitis A IgM Ab Non-reactive (NonReactive) 05/07/19 13:45 Hep Bs Antigen Non-reactive (Negative) 05/07/19 13:45 Hep B Core IgM Ab Non-reactive (NonReactive) 05/07/19 13:45 Hepatitis C Antibody Non-reactive (NonReactive) 05/07/19 13:45 Influenza A (Rapid) Negative (Negative) 06/17/19 11:35 Influenza B (Rapid) Negative (Negative) 06/17/19 11:35 Active Medications - Current Medications Current Medications: Generic Name Dose Route Start Last Admin Trade Name Freq PRN Reason Stop Dose Admin Acetaminophen 650 mg 07/02/19 23:56 07/18/19 05:16 Tylenol PO 650 mg Q4H PRN Administration Pain, Mild (1-3) Amlodipine Besylate 10 mg 06/25/19 11:00 07/23/19 11:41 Amlodipine PO 10 mg DAILY VICKEY Administration Lipase/Protease/Amylase 1 each 07/15/19 12:[address] 10,500 Unit FEEDTUBE PRN PRN For Clogged Feeding Tube Apixaban 2.5 mg 06/23/19 22:00 07/23/19 11:41 Eliquis PO 2.5 mg Q12HR VICKEY Administration Protocol Dextrose 50 gm 05/01/19 20:24 D50w (25gm) Vial IV Q30MIN PRN Hypoglycemia Protocol Famotidine 20 mg 06/17/19 10:00 07/23/19 11:40 Pepcid PO 20 mg BID VICKEY Administration Ferrous Sulfate 308 mg 06/18/19 12:00 07/23/19 11:41 Ferrous Sulfate PO 308 mg QDAY VICKEY Administration Hydrochlorothiazide 25 mg 06/26/19 11:00 07/23/19 11:41 Hctz PO 25 mg QDAY VICKEY Administration Insulin Human Lispro 0 unit 06/01/19 14:00 07/23/19 12:00 Humalog SUB-Q Not Given Q6HR [facility] Protocol Labetalol HCl 200 mg 06/28/19 10:00 07/23/19 06:36 Labetalol PO 200 mg Q8HR VICKEY Administration Multi-Ingred Cream/Lotion/Oil/Oint 1 applic 06/16/19 18:00 Artificial Tears Ophth Oint OU Q4HR PRN Dry Eye(s) Multivitamins 5 ml 06/29/19 12:00 07/23/19 11:41 Centrum Liq PO 5 ml QDAY VICKEY Administration Ondansetron HCl 4 mg 07/22/19 16:14 Zofran IV Q8H PRN Nausea And Vomiting Scopolamine 1 each 06/27/19 09:00 07/21/19 09:37 Transderm-Scop TD 1 each Q3D VICKEY Administration Simple Syrup 15 ml 07/15/19 12:26 Simple Syrup FEEDTUBE PRN PRN Hypoglycemia Simple Syrup 30 ml 07/15/19 12:26 Simple Syrup FEEDTUBE PRN PRN Hypoglycemia Sodium Bicarbonate 325 mg 07/15/19 12:26 Sodium Bicarbonate FEEDTUBE PRN PRN For Clogged Feeding Tube Nutrition/Malnutrition Assess - Dietary Evaluation Nutrition/Malnutrition Findings: Nutrition Notes Start: 05/04/19 12:54 Freq: Status: Active Protocol: Document 07/21/19 10:49 CT (Rec: 07/21/19 10:53 CT [email or web address]) Co-Sign 07/21/19 10:49 LP Nutrition Notes Initial or Follow up Reassessment Current Diagnosis Acute Kidney Injury,Sepsis, Respiratory Failure Current Diet Osmolite 1.5 at 60 ml/hr Labs/Tests Glu 116 Pertinent Medications Humalog Height 6 ft 4 in Weight 189.8 kg [place] Body Weight (kg) 91.81 BMI 50.9 Weight Status Morbidly Obese Subjective/Other Information Osmolite running at 60 ml/hr at time of visit. Pt tolerating TF. No definite POC noted by RN at this time. Percent of energy/protein needs met: 100%/100% Burn Absent Trauma Absent GI Symptoms None Current % PO Negligible Minimum of two criteria No Fluid Accumulation Moderate to Severe (severe) #1 Nutrition Diagnosis Inadequate oral intake Diagnosis Progress(for reassessment Continues documentation) Is patient on ventilator? Yes Is Patient Ambulatory and/or Out of Bed No REE-([place]. Jeor-confined to bed) 3534.288 Kcal/Kg value to use for calculation 11 Approximate Energy Requirements Using 8 kcal/Kg Calculation Used for Recommendations Kcal/kg Additional Notes PRO needs: 73-91g (0.8-1 g/kg IBW 91kg CARLA resolved) Fluid needs: 1 ml/kcal Nutrition Intervention Change Diet Order: Continue TF Nutrition Support: Osmolite at 60 ml/hr Flush 200 ml q4h Kcal 2,160 Protein (gm) 90 Fluid (mL) 1,097 Goal #1 TF tolerance Goal #2 Meet at least 80% of PRO/kcal needs via TF Anticipated Discharge Needs: Unable to determine at this time Follow-Up By: 07/30/19 Additional Comments Follow up for TF/POC
[2019-07-24] MEDS: INSULIN LISPRO 100 UNIT/ML SUB-Q SCH ×4 (07:20→17:18)
--- NOTE | 2019-07-24 09:30 | Progress Note ---
Assessment and Plan Assessment and plan: Febrile illness - spiking low grade temp intermittently - Internal jugular tunneled hemodialysis catheter removed - ID following Acute respiratory failure; vent dependent/status post trach and PEG Off ventilatory support, on T-piece, cont trach care, scheduled nebulizers Pulmonary following Obesity hypoventilation syndrome Status post tracheostomy, titrate O2 sats to more than 90% Status post cardiac arrest mild anoxic brain injury EEG was negative for seizures and neurology evaluated Severe protein calorie malnutrition Oral pharyngeal dysphagia continue tube feeds Anemia of chronic disease Closely monitor H&H and transfuse as needed. 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 Now Patient is on Eliquis Acute kidney injury due to ATN Initially requiring dialysis Resolved, nephrology following. Hypernatremia/Hypokalemia/ hypomagnesemia Resolved Morbid obesity will need weight loss program upon discharge DVT prophylaxis scd /Eliquis Physical therapy/occupational therapy when patient is stable 07/16-patient with no fever as of yet since midnight 07/15. Cultures remain negative x72 hours. Patient remains vent dependent. 07/17consider to transfer out of the ICU to the floor. Continue tube feeding with aspiration precautions. Continue frequent suctioning, trach care, secretion control and airway management. Continue mobility protocols for pressu re ulcer prophylaxis. 07/18Continue tube feeding with aspiration precautions. Continue frequent marin ctioning, trach care, secretion control and airway management. Continue mobility protocols for pressure ulcer prophylaxis. 07/19Case management to discuss discharge planning options with the family today. Continue tube feeding with aspiration precautions. Continue frequent suctioning, trach care, secretion control and airway management. Continue mobility protocols for pressure ulcer prophylaxis. 07/20 - More alert, awake, follows commands. lining caser having discussions with family. 07/21- More alert,was agitated therefore restraints renewed 07/22- patient calm today, awake,alert, following commands. Stable to transfer out of unit. 07/23 patient now in Tele Patient transferred to tele. Not stable fore discharge History Interval history: Patient with respiratory failure s/p trach and PEG Transferred to Tele Hospitalist Physical - Physical exam Narrative exam: Gen: Not in acute distress, morbidly obese HEENT: Normocephalic, atraumatic Neck: supple, no JVD,tracheostomy Heart: S1 and S2 reg, no murmurs, rubs or gallop Lungs: Clear to auscultation bilaterally, no wheeze Abd: soft, NT, non distended, normal bowel sounds,PEG Ext:No edema, no cyanosis Neuro: Awake, alert,follows commands - Constitutional Vitals: Temp Pulse Resp BP Pulse Ox 100.8 F H 103 H 22 101/64 99 07/24/19 08:59 07/24/19 08:59 07/24/19 08:59 07/24/19 08:59 07/24/19 08:59 General appearance: Present: no acute distress, obese, other (tracheostomy /T- piece) Results - Labs CBC & Chem 7: 07/23/19 05:28 07/23/19 05:28 Labs: Laboratory Last Values WBC 11.0 K/mm3 (4.5-11.0) 07/23/19 05:28 RBC 3.41 M/mm3 (3.65-5.03) L 07/23/19 05:28 Hgb 9.6 gm/dl (11.8-15.2) L 07/23/19 05:28 Hct 29.7 % (35.5-45.6) L 07/23/19 05:28 MCV 87 fl (84-94) 07/23/19 05:28 MCH 28 pg (28-32) 07/23/19 05:28 MCHC 32 % (32-34) 07/23/19 05:28 RDW 19.1 % (13.2-15.2) H 07/23/19 05:28 Plt Count 353 K/mm3 (140-440) 07/23/19 05:28 Lymph % (Auto) 19.2 % (13.4-35.0) 07/20/19 04:33 Atkinson % (Auto) 6.1 % (0.0-7.3) 07/20/19 04:33 Eos % (Auto) 2.8 % (0.0-4.3) 07/20/19 04:33 Baso % (Auto) 1.1 % (0.0-1.8) 07/20/19 04:33 Lymph # 2.4 K/mm3 (1.2-5.4) 07/20/19 04:33 Atkinson # 0.8 K/mm3 (0.0-0.8) 07/20/19 04:33 Eos # 0.3 K/mm3 (0.0-0.4) 07/20/19 04:33 Baso # 0.1 K/mm3 (0.0-0.1) 07/20/19 04:33 Add Manual Diff Complete 07/08/19 04:00 Total Counted 100 07/08/19 04:00 Seg Neutrophils % 70.8 % (40.0-70.0) H 07/20/19 04:33 Seg Neuts % (Manual) 76.0 % (40.0-70.0) H 07/08/19 04:00 Band Neutrophils % 0 % 07/08/19 04:00 Lymphocytes % (Manual) 16.0 % (13.4-35.0) 07/08/19 04:00 Reactive Lymphs % (Man) 0 % 07/08/19 04:00 Monocytes % (Manual) 6.0 % (0.0-7.3) 07/08/19 04:00 Eosinophils % (Manual) 2.0 % (0.0-4.3) 07/08/19 04:00 Basophils % (Manual) 0 % (0.0-1.8) 07/08/19 04:00 Metamyelocytes % 0 % 07/08/19 04:00 Myelocytes % 0 % 07/08/19 04:00 Promyelocytes % 0 % 07/08/19 04:00 Blast Cells % 0 % 07/08/19 04:00 Nucleated RBC % Not Reportable 07/08/19 04:00 Seg Neutrophils # 8.7 K/mm3 (1.8-7.7) H 07/20/19 04:33 Seg Neutrophils # Man 8.4 K/mm3 (1.8-7.7) H 07/08/19 04:00 Band Neutrophils # 0.0 K/mm3 07/08/19 04:00 Lymphocytes # (Manual) 1.8 K/mm3 (1.2-5.4) 07/08/19 04:00 Abs React Lymphs (Man) 0.0 K/mm3 07/08/19 04:00 Monocytes # (Manual) 0.7 K/mm3 (0.0-0.8) 07/08/19 04:00 Eosinophils # (Manual) 0.2 K/mm3 (0.0-0.4) 07/08/19 04:00 Basophils # (Manual) 0.0 K/mm3 (0.0-0.1) 07/08/19 04:00 Metamyelocytes # 0.0 K/mm3 07/08/19 04:00 Myelocytes # 0.0 K/mm3 07/08/19 04:00 Promyelocytes # 0.0 K/mm3 07/08/19 04:00 Blast Cells # 0.0 K/mm3 07/08/19 04:00 WBC Morphology Not Reportable 07/08/19 04:00 Hypersegmented Neuts Not Reportable 07/08/19 04:00 Hyposegmented Neuts Not Reportable 07/08/19 04:00 Hypogranular Neuts Not Reportable 07/08/19 04:00 Smudge Cells Not Reportable 07/08/19 04:00 Toxic Granulation Not Reportable 07/08/19 04:00 Toxic Vacuolation Not Reportable 07/08/19 04:00 Dohle Bodies Not Reportable 07/08/19 04:00 Pelger-Huet Anomaly Not Reportable 07/08/19 04:00 Renea Rods Not Reportable 07/08/19 04:00 Platelet Estimate Consistent w auto 07/08/19 04:00 Clumped Platelets Not Reportable 07/08/19 04:00 Plt Clumps, EDTA Not Reportable 07/08/19 04:00 Large Platelets Not Reportable 07/08/19 04:00 Giant Platelets Not Reportable 07/08/19 04:00 Platelet Satelliting Not Reportable 07/08/19 04:00 Plt Morphology Comment Not Reportable 07/08/19 04:00 RBC Morphology Not Reportable 07/08/19 04:00 Dimorphic RBCs Not Reportable 07/08/19 04:00 Polychromasia Not Reportable 07/08/19 04:00 Hypochromasia Not Reportable 07/08/19 04:00 Poikilocytosis Not Reportable 07/08/19 04:00 Anisocytosis 1+ 07/08/19 04:00 Microcytosis Not Reportable 07/08/19 04:00 Macrocytosis Not Reportable 07/08/19 04:00 Spherocytes Not Reportable 07/08/19 04:00 Pappenheimer Bodies Not Reportable 07/08/19 04:00 Sickle Cells Not Reportable 07/08/19 04:00 Target Cells Not Reportable 07/08/19 04:00 Tear Drop Cells Not Reportable 07/08/19 04:00 Ovalocytes Not Reportable 07/08/19 04:00 Stomatocytes 3+ 06/23/19 05:24 Helmet Cells Not Reportable 07/08/19 04:00 [place] Bodies Not Reportable 07/08/19 04:00 Veyo Rings Not Reportable 07/08/19 04:00 Dennis Cells Not Reportable 07/08/19 04:00 Bite Cells Not Reportable 07/08/19 04:00 Crenated Cell Not Reportable 07/08/19 04:00 Elliptocytes Not Reportable 07/08/19 04:00 Acanthocytes (Spur) Not Reportable 07/08/19 04:00 Rouleaux Not Reportable 07/08/19 04:00 Hemoglobin C Crystals Not Reportable 07/08/19 04:00 Schistocytes Not Reportable 07/08/19 04:00 Malaria parasites Not Reportable 07/08/19 04:00 Syed Bodies Not Reportable 07/08/19 04:00 Hem Pathologist Commnt No 07/08/19 04:00 PT 15.4 Sec. (12.2-14.9) H 05/01/19 Unknown INR 1.23 (0.87-1.13) H 05/01/19 Unknown APTT 22.7 Sec. (24.2-36.6) L 05/01/19 Unknown Fibrinogen 194 mg/dl (211-480) L 06/17/19 12:45 Heparin Anti-Xa, Unfract Negative (Negative) 06/17/19 12:45 POC ABG pH 7.462 (7.35-7.45) H 06/05/19 03:52 ABG pH 7.469 pH Units (7.350-7.450) H 06/23/19 02:00 POC ABG pCO2 39.8 (35-45) 06/05/19 03:52 ABG pCO2 39.4 mm Hg 06/23/19 02:00 POC ABG pO2 86 (80-105) 06/05/19 03:52 ABG pO2 58.7 mm Hg (80.0-90.0) L 06/23/19 02:00 POC ABG HCO3 28.4 (22-26 mml/L) 06/05/19 03:52 ABG HCO3 28.0 mmol/L (20.0-26.0) H 06/23/19 02:00 POC ABG Total CO2 30 (23-27mmol/L) 06/05/19 03:52 POC ABG O2 Sat 97 06/05/19 03:52 ABG O2 Saturation 94.6 % (95.0-99.0) L 06/23/19 02:00 ABG O2 Content 9.2 (0.0-44) 06/23/19 02:00 POC ABG Base Excess 5 ((-2) - (+3)mmol/L) 06/05/19 03:52 ABG Base Excess 4.0 mmol/L (-2.0-3.0) H 06/23/19 02:00 ABG Hemoglobin 7.1 gm/dl (14.0-18.0) L 06/23/19 02:00 ABG Carboxyhemoglobin 2.0 % (0.0-5.0) 06/23/19 02:00 ABG Methemoglobin 0.5 % (0.0-1.5) 06/23/19 02:00 Oxyhemoglobin 92.2 % (95.0-99.0) L 06/23/19 02:00 FiO2 30 % 06/23/19 02:00 Sodium 139 mmol/L (137-145) 07/23/19 05:28 Potassium 3.9 mmol/L (3.6-5.0) 07/23/19 05:28 Chloride 98.2 mmol/L (98-107) 07/23/19 05:28 Carbon Dioxide 22 mmol/L (22-30) 07/23/19 05:28 Anion Gap 23 mmol/L 07/23/19 05:28 BUN 8 mg/dL (9-20) L 07/23/19 05:28 Creatinine 0.5 mg/dL (0.8-1.5) L 07/23/19 05:28 Estimated GFR > 60 ml/min 07/23/19 05:28 BUN/Creatinine Ratio 16 % 07/23/19 05:28 Glucose 97 mg/dL (75-100) 07/23/19 05:28 POC Glucose 94 (70-105) 07/24/19 06:43 Osmolality 327 Mosm/kg 05/07/19 13:45 Uric Acid 18.0 mg/dL (3.5-7.6) H 05/07/19 13:45 Calcium 9.8 mg/dL (8.4-10.2) 07/23/19 05:28 Phosphorus 3.70 mg/dL (2.5-4.5) 06/10/19 05:45 Magnesium 1.60 mg/dL (1.7-2.3) L 06/26/19 04:43 Iron 45 ug/dL (49-181) L 06/20/19 09:12 TIBC 110 mcg/dL (250-450) L 06/20/19 09:12 Ferritin 315.2 ng/mL (13.0-400.0) 06/20/19 09:12 Total Bilirubin 0.50 mg/dL (0.1-1.2) 06/08/19 04:20 AST 23 units/L (5-40) 06/08/19 04:20 ALT 66 units/L (7-56) H 06/08/19 04:20 Alkaline Phosphatase 59 units/L (35-129) 06/08/19 04:20 Total Creatine Kinase 131 units/L (55-170) 05/02/19 04:41 CK-MB (CK-2) 5.2 ng/mL (0.0-4.0) H 05/02/19 04:41 CK-MB (CK-2) Rel Index 3.9 (0-4) 05/02/19 04:41 Troponin T 0.067 ng/mL (0.00-0.029) H D 05/02/19 04:41 NT-Pro-B Natriuret Pep 6831 pg/mL (0-450) H 05/01/19 Unknown Total Protein 5.5 g/dL (6.3-8.2) L 06/08/19 04:20 Albumin 2.9 g/dL (3.9-5) L 06/08/19 04:20 Albumin/Globulin Ratio 1.1 % 06/08/19 04:20 Triglycerides 210 mg/dL (2-149) H 06/19/19 04:30 Cholesterol 173 mg/dL (50-199) 05/02/19 00:06 LDL Cholesterol Direct 126 mg/dL (50-130) 05/02/19 00:06 HDL Cholesterol 18 mg/dL (40-59) L 05/02/19 00:06 Cholesterol/HDL Ratio 9.61 % 05/02/19 00:06 Serotonin Release Assay See scanned results 06/17/19 12:45 Vitamin B12 353.0 pg/mL (211-911) 06/20/19 09:12 Folate 7.01 ng/mL (7.3-26.0) L 06/20/19 09:12 Procalcitonin 0.05 ng/mL (<0.15) 06/17/19 12:45 Urine Color Yellow (Yellow) 06/17/19 12:45 Urine Turbidity Slightly-cloudy (Clear) 06/17/19 12:45 Urine pH 5.0 (5.0-7.0) 06/17/19 12:45 Ur Specific [place] 1.013 (1.003-1.030) 06/17/19 12:45 Urine Protein <15 mg/dl mg/dL (Negative) 06/17/19 12:45 Urine Glucose (UA) Neg mg/dL (Negative) 06/17/19 12:45 Urine Ketones Neg mg/dL (Negative) 06/17/19 12:45 Urine Blood Sm (Negative) 06/17/19 12:45 Urine Nitrite Neg (Negative) 06/17/19 12:45 Urine Bilirubin Neg (Negative) 06/17/19 12:45 Urine Urobilinogen < 2.0 mg/dL (<2.0) 06/17/19 12:45 Ur Leukocyte Esterase Neg (Negative) 06/17/19 12:45 Urine WBC (Auto) 2.0 /HPF (0.0-6.0) 06/17/19 12:45 Urine RBC (Auto) 2.0 /HPF (0.0-6.0) 06/17/19 12:45 U Epithel Cells (Auto) < 1.0 /HPF (0-13.0) 06/17/19 12:45 Urine Bacteria (Auto) 1+ /HPF (Negative) 05/20/19 12:00 Uric Acid Crystals 3+ 05/03/19 10:55 Urine Mucus Few /HPF 06/17/19 12:45 Urine Yeast (Budding) 3+ /HPF 05/20/19 12:00 Urine Creatinine 292.8 mg/dL (0.1-20.0) H 05/07/19 22:40 Urine Sodium 11 mmol/L 05/07/19 22:40 Urine Total Protein 269 mg/dL (5-11.8) H 05/07/19 22:40 Vancomycin Trough 20.5 ug/mL (5.0-20.0) H 05/15/19 09:00 Random Vancomycin 11.5 ug/mL (0-40.0) 05/27/19 06:00 AMNA Screen Negative (Negative) 05/07/19 13:45 Heparin-induced Plt Ab Negative (Negative) 06/17/19 12:45 UF Heparin High Dose 13 % Release 06/17/19 12:45 YUNG UFH Low Dose 0.1 8 % Release 06/17/19 12:45 YUNG UFH Low Dose 0.5 7 % Release 06/17/19 12:45 Hepatitis A IgM Ab Non-reactive (NonReactive) 05/07/19 13:45 Hep Bs Antigen Non-reactive (Negative) 05/07/19 13:45 Hep B Core IgM Ab Non-reactive (NonReactive) 05/07/19 13:45 Hepatitis C Antibody Non-reactive (NonReactive) 05/07/19 13:45 Influenza A (Rapid) Negative (Negative) 06/17/19 11:35 Influenza B (Rapid) Negative (Negative) 06/17/19 11:35 Active Medications - Current Medications Current Medications: Generic Name Dose Route Start Last Admin Trade Name Freq PRN Reason Stop Dose Admin Acetaminophen 650 mg 07/02/19 23:56 07/18/19 05:16 Tylenol PO 650 mg Q4H PRN Administration Pain, Mild (1-3) Amlodipine Besylate 10 mg 06/25/19 11:00 07/23/19 11:41 Amlodipine PO 10 mg DAILY VICKEY Administration Lipase/Protease/Amylase 1 each 07/15/19 12:[address] 10,500 Unit FEEDTUBE PRN PRN For Clogged Feeding Tube Apixaban 2.5 mg 06/23/19 22:00 07/23/19 21:33 Eliquis PO 2.5 mg Q12HR VICKEY Administration Protocol Dextrose 50 gm 05/01/19 20:24 D50w (25gm) Vial IV Q30MIN PRN Hypoglycemia Protocol Famotidine 20 mg 06/17/19 10:00 07/23/19 21:33 Pepcid PO 20 mg BID VICKEY Administration Ferrous Sulfate 308 mg 06/18/19 12:00 07/23/19 11:41 Ferrous Sulfate PO 308 mg QDAY VICKEY Administration Hydrochlorothiazide 25 mg 06/26/19 11:00 07/23/19 11:41 Hctz PO 25 mg QDAY VICKEY Administration Insulin Human Lispro 0 unit 06/01/19 14:00 07/24/19 07:21 Humalog SUB-Q Not Given Q6HR [facility] Protocol Labetalol HCl 200 mg 06/28/19 10:00 07/24/19 05:47 Labetalol PO 200 mg Q8HR VICKEY Administration Multi-Ingred Cream/Lotion/Oil/Oint 1 applic 06/16/19 18:00 Artificial Tears Ophth Oint OU Q4HR PRN Dry Eye(s) Multivitamins 5 ml 06/29/19 12:00 07/23/19 11:41 Centrum Liq PO 5 ml QDAY VICKEY Administration Ondansetron HCl 4 mg 07/22/19 16:14 Zofran IV Q8H PRN Nausea And Vomiting Scopolamine 1 each 06/27/19 09:00 07/21/19 09:37 Transderm-Scop TD 1 each Q3D VICKEY Administration Simple Syrup 15 ml 07/15/19 12:26 Simple Syrup FEEDTUBE PRN PRN Hypoglycemia Simple Syrup 30 ml 07/15/19 12:26 Simple Syrup FEEDTUBE PRN PRN Hypoglycemia Sodium Bicarbonate 325 mg 07/15/19 12:26 Sodium Bicarbonate FEEDTUBE PRN PRN For Clogged Feeding Tube Nutrition/Malnutrition Assess - Dietary Evaluation Nutrition/Malnutrition Findings: Nutrition Notes Start: 05/04/19 12:54 Freq: Status: Active Protocol: Document 07/21/19 10:49 CT (Rec: 07/21/19 10:53 CT [email or web address]) Co-Sign 07/21/19 10:49 LP Nutrition Notes Initial or Follow up Reassessment Current Diagnosis Acute Kidney Injury,Sepsis, Respiratory Failure Current Diet Osmolite 1.5 at 60 ml/hr Labs/Tests Glu 116 Pertinent Medications Humalog Height 6 ft 4 in Weight 189.8 kg [place] Body Weight (kg) 91.81 BMI 50.9 Weight Status Morbidly Obese Subjective/Other Information Osmolite running at 60 ml/hr at time of visit. Pt tolerating TF. No definite POC noted by RN at this time. Percent of energy/protein needs met: 100%/100% Burn Absent Trauma Absent GI Symptoms None Current % PO Negligible Minimum of two criteria No Fluid Accumulation Moderate to Severe (severe) #1 Nutrition Diagnosis Inadequate oral intake Diagnosis Progress(for reassessment Continues documentation) Is patient on ventilator? Yes Is Patient Ambulatory and/or Out of Bed No REE-([facility]-confined to bed) 3534.288 Kcal/Kg value to use for calculation 11 Approximate Energy Requirements Using 8 kcal/Kg Calculation Used for Recommendations Kcal/kg Additional Notes PRO needs: 73-91g (0.8-1 g/kg IBW 91kg CARLA resolved) Fluid needs: 1 ml/kcal Nutrition Intervention Change Diet Order: Continue TF Nutrition Support: Osmolite at 60 ml/hr Flush 200 ml q4h Kcal 2,160 Protein (gm) 90 Fluid (mL) 1,097 Goal #1 TF tolerance Goal #2 Meet at least 80% of PRO/kcal needs via TF Anticipated Discharge Needs: Unable to determine at this time Follow-Up By: 07/30/19 Additional Comments Follow up for TF/POC
[2019-07-24] MEDS: ACETAMINOPHEN 325 MG TAB PO PRN ×2 (09:46→14:18)
[2019-07-24] MEDS: FERROUS SULFATE 308 MG (62mg Elemental Iron) / 7 ML ELIXIR PO SCH (09:46)
[2019-07-24] MEDS: APIXABAN 2.5 MG TAB PO SCH ×2 (09:47→21:27)
[2019-07-24] MEDS: SCOPOLAMINE TRANSDERMAL PATCH 72 HR TD SCH (09:47)
[2019-07-24] MEDS: FAMOTIDINE 20 MG TAB PO SCH ×2 (09:47→21:27)
[2019-07-24] MEDS: MULTIVITAMINS 5 ML ORAL LIQUID PO SCH (09:47)
[2019-07-24] MEDS: hydroCHLOROthiazide 25 MG TAB PO SCH (09:47)
[2019-07-24] MEDS: amLODIPine 10 MG TAB PO SCH (11:55)
[2019-07-25] MEDS: INSULIN LISPRO 100 UNIT/ML SUB-Q SCH ×4 (01:24→18:06)
[2019-07-25] MEDS: MULTIVITAMINS 5 ML ORAL LIQUID PO SCH (10:50)
[2019-07-25] MEDS: APIXABAN 2.5 MG TAB PO SCH ×2 (10:50→21:28)
[2019-07-25] MEDS: FERROUS SULFATE 308 MG (62mg Elemental Iron) / 7 ML ELIXIR PO SCH (10:50)
[2019-07-25] MEDS: hydroCHLOROthiazide 25 MG TAB PO SCH (10:50)
[2019-07-25] MEDS: ACETAMINOPHEN 325 MG TAB PO PRN (10:50)
[2019-07-25] MEDS: FAMOTIDINE 20 MG TAB PO SCH ×2 (10:50→21:28)
--- NOTE | 2019-07-25 10:53 | Progress Note ---
Assessment and Plan Assessment and plan: Febrile illness - spiking low grade temp intermittently - Internal jugular tunneled hemodialysis catheter removed - ID following Acute respiratory failure; vent dependent/status post trach and PEG Off ventilatory support, on T-piece, cont trach care, scheduled nebulizers Pulmonary following Obesity hypoventilation syndrome Status post tracheostomy, titrate O2 sats to more than 90% Status post cardiac arrest mild anoxic brain injury EEG was negative for seizures and neurology evaluated Severe protein calorie malnutrition Oral pharyngeal dysphagia continue tube feeds Anemia of chronic disease Closely monitor H&H and transfuse as needed. 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 Now Patient is on Eliquis Acute kidney injury due to ATN Initially requiring dialysis Resolved, nephrology following. Hypernatremia/Hypokalemia/ hypomagnesemia Resolved Morbid obesity will need weight loss program upon discharge DVT prophylaxis scd /Eliquis Physical therapy/occupational therapy when patient is stable 07/16-patient with no fever as of yet since midnight 07/15. Cultures remain negative x72 hours. Patient remains vent dependent. 07/17consider to transfer out of the ICU to the floor. Continue tube feeding with aspiration precautions. Continue frequent suctioning, trach care, secretion control and airway management. Continue mobility protocols for pressu re ulcer prophylaxis. 07/18Continue tube feeding with aspiration precautions. Continue frequent marin ctioning, trach care, secretion control and airway management. Continue mobility protocols for pressure ulcer prophylaxis. 07/19Case management to discuss discharge planning options with the family today. Continue tube feeding with aspiration precautions. Continue frequent suctioning, trach care, secretion control and airway management. Continue mobility protocols for pressure ulcer prophylaxis. 07/20 - More alert, awake, follows commands. hospice case manager having discussions with family. 07/21- More alert,was agitated therefore restraints renewed 07/22- patient calm today, awake,alert, following commands. Stable to transfer out of unit. 07/23 patient now in Tele Patient transferred to tele. Not stable for discharge 07/24 patient was agitated, has 1:1 sitter History Interval history: Patient with respiratory failure s/p trach and PEG Transferred to Tele Hospitalist Physical - Physical exam Narrative exam: Gen: Not in acute distress, morbidly obese HEENT: Normocephalic, atraumatic Neck: supple, no JVD,tracheostomy Heart: S1 and S2 reg, no murmurs, rubs or gallop Lungs: Clear to auscultation bilaterally, no wheeze Abd: soft, NT, non distended, normal bowel sounds,PEG Ext:No edema, no cyanosis Neuro: Awake, alert,follows commands - Constitutional Vitals: Temp Pulse Resp BP Pulse Ox 99.8 F H 96 H 18 111/64 95 07/25/19 08:23 07/25/19 08:23 07/25/19 08:23 07/25/19 08:23 07/25/19 08:58 General appearance: Present: no acute distress, obese, other (tracheostomy /T- piece) Results - Labs CBC & Chem 7: 07/23/19 05:28 07/23/19 05:28 Labs: Laboratory Last Values WBC 11.0 K/mm3 (4.5-11.0) 07/23/19 05:28 RBC 3.41 M/mm3 (3.65-5.03) L 07/23/19 05:28 Hgb 9.6 gm/dl (11.8-15.2) L 07/23/19 05:28 Hct 29.7 % (35.5-45.6) L 07/23/19 05:28 MCV 87 fl (84-94) 07/23/19 05:28 MCH 28 pg (28-32) 07/23/19 05:28 MCHC 32 % (32-34) 07/23/19 05:28 RDW 19.1 % (13.2-15.2) H 07/23/19 05:28 Plt Count 353 K/mm3 (140-440) 07/23/19 05:28 Lymph % (Auto) 19.2 % (13.4-35.0) 07/20/19 04:33 [place] % (Auto) 6.1 % (0.0-7.3) 07/20/19 04:33 Eos % (Auto) 2.8 % (0.0-4.3) 07/20/19 04:33 Baso % (Auto) 1.1 % (0.0-1.8) 07/20/19 04:33 Lymph # 2.4 K/mm3 (1.2-5.4) 07/20/19 04:33 [place] # 0.8 K/mm3 (0.0-0.8) 07/20/19 04:33 Eos # 0.3 K/mm3 (0.0-0.4) 07/20/19 04:33 Baso # 0.1 K/mm3 (0.0-0.1) 07/20/19 04:33 Add Manual Diff Complete 07/08/19 04:00 Total Counted 100 07/08/19 04:00 Seg Neutrophils % 70.8 % (40.0-70.0) H 07/20/19 04:33 Seg Neuts % (Manual) 76.0 % (40.0-70.0) H 07/08/19 04:00 Band Neutrophils % 0 % 07/08/19 04:00 Lymphocytes % (Manual) 16.0 % (13.4-35.0) 07/08/19 04:00 Reactive Lymphs % (Man) 0 % 07/08/19 04:00 Monocytes % (Manual) 6.0 % (0.0-7.3) 07/08/19 04:00 Eosinophils % (Manual) 2.0 % (0.0-4.3) 07/08/19 04:00 Basophils % (Manual) 0 % (0.0-1.8) 07/08/19 04:00 Metamyelocytes % 0 % 07/08/19 04:00 Myelocytes % 0 % 07/08/19 04:00 Promyelocytes % 0 % 07/08/19 04:00 Blast Cells % 0 % 07/08/19 04:00 Nucleated RBC % Not Reportable 07/08/19 04:00 Seg Neutrophils # 8.7 K/mm3 (1.8-7.7) H 07/20/19 04:33 Seg Neutrophils # Man 8.4 K/mm3 (1.8-7.7) H 07/08/19 04:00 Band Neutrophils # 0.0 K/mm3 07/08/19 04:00 Lymphocytes # (Manual) 1.8 K/mm3 (1.2-5.4) 07/08/19 04:00 Abs React Lymphs (Man) 0.0 K/mm3 07/08/19 04:00 Monocytes # (Manual) 0.7 K/mm3 (0.0-0.8) 07/08/19 04:00 Eosinophils # (Manual) 0.2 K/mm3 (0.0-0.4) 07/08/19 04:00 Basophils # (Manual) 0.0 K/mm3 (0.0-0.1) 07/08/19 04:00 Metamyelocytes # 0.0 K/mm3 07/08/19 04:00 Myelocytes # 0.0 K/mm3 07/08/19 04:00 Promyelocytes # 0.0 K/mm3 07/08/19 04:00 Blast Cells # 0.0 K/mm3 07/08/19 04:00 WBC Morphology Not Reportable 07/08/19 04:00 Hypersegmented Neuts Not Reportable 07/08/19 04:00 Hyposegmented Neuts Not Reportable 07/08/19 04:00 Hypogranular Neuts Not Reportable 07/08/19 04:00 Smudge Cells Not Reportable 07/08/19 04:00 Toxic Granulation Not Reportable 07/08/19 04:00 Toxic Vacuolation Not Reportable 07/08/19 04:00 Dohle Bodies Not Reportable 07/08/19 04:00 Pelger-Huet Anomaly Not Reportable 07/08/19 04:00 Renea Rods Not Reportable 07/08/19 04:00 Platelet Estimate Consistent w auto 07/08/19 04:00 Clumped Platelets Not Reportable 07/08/19 04:00 Plt Clumps, EDTA Not Reportable 07/08/19 04:00 Large Platelets Not Reportable 07/08/19 04:00 Giant Platelets Not Reportable 07/08/19 04:00 Platelet Satelliting Not Reportable 07/08/19 04:00 Plt Morphology Comment Not Reportable 07/08/19 04:00 RBC Morphology Not Reportable 07/08/19 04:00 Dimorphic RBCs Not Reportable 07/08/19 04:00 Polychromasia Not Reportable 07/08/19 04:00 Hypochromasia Not Reportable 07/08/19 04:00 Poikilocytosis Not Reportable 07/08/19 04:00 Anisocytosis 1+ 07/08/19 04:00 Microcytosis Not Reportable 07/08/19 04:00 Macrocytosis Not Reportable 07/08/19 04:00 Spherocytes Not Reportable 07/08/19 04:00 Pappenheimer Bodies Not Reportable 07/08/19 04:00 Sickle Cells Not Reportable 07/08/19 04:00 Target Cells Not Reportable 07/08/19 04:00 Tear Drop Cells Not Reportable 07/08/19 04:00 Ovalocytes Not Reportable 07/08/19 04:00 Stomatocytes 3+ 06/23/19 05:24 Helmet Cells Not Reportable 07/08/19 04:00 [place] Bodies Not Reportable 07/08/19 04:00 [place] Rings Not Reportable 07/08/19 04:00 [place] Cells Not Reportable 07/08/19 04:00 Bite Cells Not Reportable 07/08/19 04:00 Crenated Cell Not Reportable 07/08/19 04:00 Elliptocytes Not Reportable 07/08/19 04:00 Acanthocytes (Spur) Not Reportable 07/08/19 04:00 Rouleaux Not Reportable 07/08/19 04:00 Hemoglobin C Crystals Not Reportable 07/08/19 04:00 Schistocytes Not Reportable 07/08/19 04:00 Malaria parasites Not Reportable 07/08/19 04:00 Syed Bodies Not Reportable 07/08/19 04:00 Hem Pathologist Commnt No 07/08/19 04:00 PT 15.4 Sec. (12.2-14.9) H 05/01/19 Unknown INR 1.23 (0.87-1.13) H 05/01/19 Unknown APTT 22.7 Sec. (24.2-36.6) L 05/01/19 Unknown Fibrinogen 194 mg/dl (211-480) L 06/17/19 12:45 Heparin Anti-Xa, Unfract Negative (Negative) 06/17/19 12:45 POC ABG pH 7.462 (7.35-7.45) H 06/05/19 03:52 ABG pH 7.469 pH Units (7.350-7.450) H 06/23/19 02:00 POC ABG pCO2 39.8 (35-45) 06/05/19 03:52 ABG pCO2 39.4 mm Hg 06/23/19 02:00 POC ABG pO2 86 (80-105) 06/05/19 03:52 ABG pO2 58.7 mm Hg (80.0-90.0) L 06/23/19 02:00 POC ABG HCO3 28.4 (22-26 mml/L) 06/05/19 03:52 ABG HCO3 28.0 mmol/L (20.0-26.0) H 06/23/19 02:00 POC ABG Total CO2 30 (23-27mmol/L) 06/05/19 03:52 POC ABG O2 Sat 97 06/05/19 03:52 ABG O2 Saturation 94.6 % (95.0-99.0) L 06/23/19 02:00 ABG O2 Content 9.2 (0.0-44) 06/23/19 02:00 POC ABG Base Excess 5 ((-2) - (+3)mmol/L) 06/05/19 03:52 ABG Base Excess 4.0 mmol/L (-2.0-3.0) H 06/23/19 02:00 ABG Hemoglobin 7.1 gm/dl (14.0-18.0) L 06/23/19 02:00 ABG Carboxyhemoglobin 2.0 % (0.0-5.0) 06/23/19 02:00 ABG Methemoglobin 0.5 % (0.0-1.5) 06/23/19 02:00 Oxyhemoglobin 92.2 % (95.0-99.0) L 06/23/19 02:00 FiO2 30 % 06/23/19 02:00 Sodium 139 mmol/L (137-145) 07/23/19 05:28 Potassium 3.9 mmol/L (3.6-5.0) 07/23/19 05:28 Chloride 98.2 mmol/L (98-107) 07/23/19 05:28 Carbon Dioxide 22 mmol/L (22-30) 07/23/19 05:28 Anion Gap 23 mmol/L 07/23/19 05:28 BUN 8 mg/dL (9-20) L 07/23/19 05:28 Creatinine 0.5 mg/dL (0.8-1.5) L 07/23/19 05:28 Estimated GFR > 60 ml/min 07/23/19 05:28 BUN/Creatinine Ratio 16 % 07/23/19 05:28 Glucose 97 mg/dL (75-100) 07/23/19 05:28 POC Glucose 96 (70-105) 07/25/19 05:32 Osmolality 327 Mosm/kg 05/07/19 13:45 Uric Acid 18.0 mg/dL (3.5-7.6) H 05/07/19 13:45 Calcium 9.8 mg/dL (8.4-10.2) 07/23/19 05:28 Phosphorus 3.70 mg/dL (2.5-4.5) 06/10/19 05:45 Magnesium 1.60 mg/dL (1.7-2.3) L 06/26/19 04:43 Iron 45 ug/dL (49-181) L 06/20/19 09:12 TIBC 110 mcg/dL (250-450) L 06/20/19 09:12 Ferritin 315.2 ng/mL (13.0-400.0) 06/20/19 09:12 Total Bilirubin 0.50 mg/dL (0.1-1.2) 06/08/19 04:20 AST 23 units/L (5-40) 06/08/19 04:20 ALT 66 units/L (7-56) H 06/08/19 04:20 Alkaline Phosphatase 59 units/L (35-129) 06/08/19 04:20 Total Creatine Kinase 131 units/L (55-170) 05/02/19 04:41 CK-MB (CK-2) 5.2 ng/mL (0.0-4.0) H 05/02/19 04:41 CK-MB (CK-2) Rel Index 3.9 (0-4) 05/02/19 04:41 Troponin T 0.067 ng/mL (0.00-0.029) H D 05/02/19 04:41 NT-Pro-B Natriuret Pep 6831 pg/mL (0-450) H 05/01/19 Unknown Total Protein 5.5 g/dL (6.3-8.2) L 06/08/19 04:20 Albumin 2.9 g/dL (3.9-5) L 06/08/19 04:20 Albumin/Globulin Ratio 1.1 % 06/08/19 04:20 Triglycerides 210 mg/dL (2-149) H 06/19/19 04:30 Cholesterol 173 mg/dL (50-199) 05/02/19 00:06 LDL Cholesterol Direct 126 mg/dL (50-130) 05/02/19 00:06 HDL Cholesterol 18 mg/dL (40-59) L 05/02/19 00:06 Cholesterol/HDL Ratio 9.61 % 05/02/19 00:06 Serotonin Release Assay See scanned results 06/17/19 12:45 Vitamin B12 353.0 pg/mL (211-911) 06/20/19 09:12 Folate 7.01 ng/mL (7.3-26.0) L 06/20/19 09:12 Procalcitonin 0.05 ng/mL (<0.15) 06/17/19 12:45 Urine Color Yellow (Yellow) 06/17/19 12:45 Urine Turbidity Slightly-cloudy (Clear) 06/17/19 12:45 Urine pH 5.0 (5.0-7.0) 06/17/19 12:45 Ur Specific [place] 1.013 (1.003-1.030) 06/17/19 12:45 Urine Protein <15 mg/dl mg/dL (Negative) 06/17/19 12:45 Urine Glucose (UA) Neg mg/dL (Negative) 06/17/19 12:45 Urine Ketones Neg mg/dL (Negative) 06/17/19 12:45 Urine Blood Sm (Negative) 06/17/19 12:45 Urine Nitrite Neg (Negative) 06/17/19 12:45 Urine Bilirubin Neg (Negative) 06/17/19 12:45 Urine Urobilinogen < 2.0 mg/dL (<2.0) 06/17/19 12:45 Ur Leukocyte Esterase Neg (Negative) 06/17/19 12:45 Urine WBC (Auto) 2.0 /HPF (0.0-6.0) 06/17/19 12:45 Urine RBC (Auto) 2.0 /HPF (0.0-6.0) 06/17/19 12:45 U Epithel Cells (Auto) < 1.0 /HPF (0-13.0) 06/17/19 12:45 Urine Bacteria (Auto) 1+ /HPF (Negative) 05/20/19 12:00 Uric Acid Crystals 3+ 05/03/19 10:55 Urine Mucus Few /HPF 06/17/19 12:45 Urine Yeast (Budding) 3+ /HPF 05/20/19 12:00 Urine Creatinine 292.8 mg/dL (0.1-20.0) H 05/07/19 22:40 Urine Sodium 11 mmol/L 05/07/19 22:40 Urine Total Protein 269 mg/dL (5-11.8) H 05/07/19 22:40 Vancomycin Trough 20.5 ug/mL (5.0-20.0) H 05/15/19 09:00 Random Vancomycin 11.5 ug/mL (0-40.0) 05/27/19 06:00 AMNA Screen Negative (Negative) 05/07/19 13:45 Heparin-induced Plt Ab Negative (Negative) 06/17/19 12:45 UF Heparin High Dose 13 % Release 06/17/19 12:45 YUNG UFH Low Dose 0.1 8 % Release 06/17/19 12:45 YUNG UFH Low Dose 0.5 7 % Release 06/17/19 12:45 Hepatitis A IgM Ab Non-reactive (NonReactive) 05/07/19 13:45 Hep Bs Antigen Non-reactive (Negative) 05/07/19 13:45 Hep B Core IgM Ab Non-reactive (NonReactive) 05/07/19 13:45 Hepatitis C Antibody Non-reactive (NonReactive) 05/07/19 13:45 Influenza A (Rapid) Negative (Negative) 06/17/19 11:35 Influenza B (Rapid) Negative (Negative) 06/17/19 11:35 Active Medications - Current Medications Current Medications: Generic Name Dose Route Start Last Admin Trade Name Freq PRN Reason Stop Dose Admin Acetaminophen 650 mg 07/02/19 23:56 07/25/19 10:50 Tylenol PO 650 mg Q4H PRN Administration Pain, Mild (1-3) Amlodipine Besylate 10 mg 07/25/19 10:00 Amlodipine PO DAILY VICKEY Lipase/Protease/Amylase 1 each 07/15/19 12:26 Pancreaze 10,500 Unit FEEDTUBE PRN PRN For Clogged Feeding Tube Apixaban 2.5 mg 06/23/19 22:00 07/25/19 10:50 Eliquis PO 2.5 mg Q12HR VICKEY Administration Protocol Dextrose 50 gm 05/01/19 20:24 D50w (25gm) Vial IV Q30MIN PRN Hypoglycemia Protocol Famotidine 20 mg 06/17/19 10:00 03/01/20 10:50 Pepcid PO 20 mg BID VICKEY Administration Ferrous Sulfate 308 mg 06/18/19 12:00 07/25/19 10:50 Ferrous Sulfate PO 308 mg QDAY VICKEY Administration Hydrochlorothiazide 25 mg 06/26/19 11:00 07/25/19 10:50 Hctz PO 25 mg QDAY VICKEY Administration Insulin Human Lispro 0 unit 06/01/19 14:00 07/25/19 05:05 Humalog SUB-Q Not Given Q6HR [facility] Protocol Labetalol HCl 200 mg 06/28/19 10:00 07/25/19 05:05 Labetalol PO 200 mg Q8HR VICKEY Administration Multi-Ingred Cream/Lotion/Oil/Oint 1 applic 06/16/19 18:00 Artificial Tears Ophth Oint OU Q4HR PRN Dry Eye(s) Multivitamins 5 ml 06/29/19 12:00 07/25/19 10:50 Centrum Liq PO 5 ml QDAY VICKEY Administration Ondansetron HCl 4 mg 07/22/19 16:14 Zofran IV Q8H PRN Nausea And Vomiting Scopolamine 1 each 06/27/19 09:00 07/24/19 09:47 Transderm-Scop TD 1 each Q3D VICKEY Administration Simple Syrup 15 ml 07/15/19 12:26 Simple Syrup FEEDTUBE PRN PRN Hypoglycemia Simple Syrup 30 ml 07/15/19 12:26 Simple Syrup FEEDTUBE PRN PRN Hypoglycemia Sodium Bicarbonate 325 mg 07/15/19 12:26 Sodium Bicarbonate FEEDTUBE PRN PRN For Clogged Feeding Tube Nutrition/Malnutrition Assess - Dietary Evaluation Nutrition/Malnutrition Findings: Nutrition Notes Start: 05/04/19 12:54 Freq: Status: Active Protocol: Document 07/21/19 10:49 CT (Rec: 07/21/19 10:53 CT [email or web address]) Co-Sign 07/21/19 10:49 LP Nutrition Notes Initial or Follow up Reassessment Current Diagnosis Acute Kidney Injury,Sepsis, Respiratory Failure Current Diet Osmolite 1.5 at 60 ml/hr Labs/Tests Glu 116 Pertinent Medications Humalog Height 6 ft 4 in Weight 189.8 kg [place] Body Weight (kg) 91.81 BMI 50.9 Weight Status Morbidly Obese Subjective/Other Information Osmolite running at 60 ml/hr at time of visit. Pt tolerating TF. No definite POC noted by RN at this time. Percent of energy/protein needs met: 100%/100% Burn Absent Trauma Absent GI Symptoms None Current % PO Negligible Minimum of two criteria No Fluid Accumulation Moderate to Severe (severe) #1 Nutrition Diagnosis Inadequate oral intake Diagnosis Progress(for reassessment Continues documentation) Is patient on ventilator? Yes Is Patient Ambulatory and/or Out of Bed No REE-([facility]-confined to bed) 3534.288 Kcal/Kg value to use for calculation 11 Approximate Energy Requirements Using 8 kcal/Kg Calculation Used for Recommendations Kcal/kg Additional Notes PRO needs: 73-91g (0.8-1 g/kg IBW 91kg CARLA resolved) Fluid needs: 1 ml/kcal Nutrition Intervention Change Diet Order: Continue TF Nutrition Support: Osmolite at 60 ml/hr Flush 200 ml q4h Kcal 2,160 Protein (gm) 90 Fluid (mL) 1,097 Goal #1 TF tolerance Goal #2 Meet at least 80% of PRO/kcal needs via TF Anticipated Discharge Needs: Unable to determine at this time Follow-Up By: 07/30/19 Additional Comments Follow up for TF/POC
[2019-07-25] MEDS: amLODIPine 10 MG TAB PO SCH (11:16)
[2019-07-26] MEDS: INSULIN LISPRO 100 UNIT/ML SUB-Q SCH ×4 (00:19→21:26)
--- NOTE | 2019-07-26 11:32 | Progress Note ---
Assessment and Plan Assessment and plan: Febrile illness - spiking low grade temp intermittently - Internal jugular tunneled hemodialysis catheter removed - ID following Acute respiratory failure; vent dependent/status post trach and PEG Off ventilatory support, on T-piece, cont trach care, scheduled nebulizers Pulmonary following Obesity hypoventilation syndrome Status post tracheostomy, titrate O2 sats to more than 90% Status post cardiac arrest mild anoxic brain injury EEG was negative for seizures and neurology evaluated Severe protein calorie malnutrition Oral pharyngeal dysphagia continue tube feeds Anemia of chronic disease Closely monitor H&H and transfuse as needed. 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 Now Patient is on Eliquis Acute kidney injury due to ATN Initially requiring dialysis Resolved, nephrology following. Hypernatremia/Hypokalemia/ hypomagnesemia Resolved Morbid obesity will need weight loss program upon discharge DVT prophylaxis scd /Eliquis Physical therapy/occupational therapy when patient is stable 07/16-patient with no fever as of yet since midnight 07/15. Cultures remain negative x72 hours. Patient remains vent dependent. 07/17consider to transfer out of the ICU to the floor. Continue tube feeding with aspiration precautions. Continue frequent suctioning, trach care, secretion control and airway management. Continue mobility protocols for pressu re ulcer prophylaxis. 07/18Continue tube feeding with aspiration precautions. Continue frequent marin ctioning, trach care, secretion control and airway management. Continue mobility protocols for pressure ulcer prophylaxis. 07/19Case management to discuss discharge planning options with the family today. Continue tube feeding with aspiration precautions. Continue frequent suctioning, trach care, secretion control and airway management. Continue mobility protocols for pressure ulcer prophylaxis. 07/20 - More alert, awake, follows commands. case management director having discussions with family. 07/21- More alert,was agitated therefore restraints renewed 07/22- patient calm today, awake,alert, following commands. Stable to transfer out of unit. 07/23 patient now in Tele Patient transferred to tele. Not stable for discharge 07/24 patient was agitated, has 1:1 sitter 07/25 patient agitated on and off. case management director in discussions with family about dc planning. History Interval history: Patient with respiratory failure s/p trach and PEG Transferred to Tele Hospitalist Physical - Physical exam Narrative exam: Gen: Not in acute distress, morbidly obese HEENT: Normocephalic, atraumatic Neck: supple, no JVD,tracheostomy Heart: S1 and S2 reg, no murmurs, rubs or gallop Lungs: Clear to auscultation bilaterally, no wheeze Abd: soft, NT, non distended, normal bowel sounds,PEG Ext:No edema, no cyanosis Neuro: Awake, alert,follows commands - Constitutional Vitals: Temp Pulse Resp BP Pulse Ox 99.6 F 102 H 20 121/67 99 07/26/19 08:12 07/26/19 08:12 07/26/19 08:12 07/26/19 08:12 07/26/19 09:14 General appearance: Present: no acute distress, obese Results - Labs CBC & Chem 7: 07/23/19 05:28 07/23/19 05:28 Labs: Laboratory Last Values WBC 11.0 K/mm3 (4.5-11.0) 07/23/19 05:28 RBC 3.41 M/mm3 (3.65-5.03) L 07/23/19 05:28 Hgb 9.6 gm/dl (11.8-15.2) L 07/23/19 05:28 Hct 29.7 % (35.5-45.6) L 07/23/19 05:28 MCV 87 fl (84-94) 07/23/19 05:28 MCH 28 pg (28-32) 07/23/19 05:28 MCHC 32 % (32-34) 07/23/19 05:28 RDW 19.1 % (13.2-15.2) H 07/23/19 05:28 Plt Count 353 K/mm3 (140-440) 07/23/19 05:28 Lymph % (Auto) 19.2 % (13.4-35.0) 07/20/19 04:33 Adams % (Auto) 6.1 % (0.0-7.3) 07/20/19 04:33 Eos % (Auto) 2.8 % (0.0-4.3) 07/20/19 04:33 Baso % (Auto) 1.1 % (0.0-1.8) 07/20/19 04:33 Lymph # 2.4 K/mm3 (1.2-5.4) 07/20/19 04:33 Adams # 0.8 K/mm3 (0.0-0.8) 07/20/19 04:33 Eos # 0.3 K/mm3 (0.0-0.4) 07/20/19 04:33 Baso # 0.1 K/mm3 (0.0-0.1) 07/20/19 04:33 Add Manual Diff Complete 07/08/19 04:00 Total Counted 100 07/08/19 04:00 Seg Neutrophils % 70.8 % (40.0-70.0) H 07/20/19 04:33 Seg Neuts % (Manual) 76.0 % (40.0-70.0) H 07/08/19 04:00 Band Neutrophils % 0 % 07/08/19 04:00 Lymphocytes % (Manual) 16.0 % (13.4-35.0) 07/08/19 04:00 Reactive Lymphs % (Man) 0 % 07/08/19 04:00 Monocytes % (Manual) 6.0 % (0.0-7.3) 07/08/19 04:00 Eosinophils % (Manual) 2.0 % (0.0-4.3) 07/08/19 04:00 Basophils % (Manual) 0 % (0.0-1.8) 07/08/19 04:00 Metamyelocytes % 0 % 07/08/19 04:00 Myelocytes % 0 % 07/08/19 04:00 Promyelocytes % 0 % 07/08/19 04:00 Blast Cells % 0 % 07/08/19 04:00 Nucleated RBC % Not Reportable 07/08/19 04:00 Seg Neutrophils # 8.7 K/mm3 (1.8-7.7) H 07/20/19 04:33 Seg Neutrophils # Man 8.4 K/mm3 (1.8-7.7) H 07/08/19 04:00 Band Neutrophils # 0.0 K/mm3 07/08/19 04:00 Lymphocytes # (Manual) 1.8 K/mm3 (1.2-5.4) 07/08/19 04:00 Abs React Lymphs (Man) 0.0 K/mm3 07/08/19 04:00 Monocytes # (Manual) 0.7 K/mm3 (0.0-0.8) 07/08/19 04:00 Eosinophils # (Manual) 0.2 K/mm3 (0.0-0.4) 07/08/19 04:00 Basophils # (Manual) 0.0 K/mm3 (0.0-0.1) 07/08/19 04:00 Metamyelocytes # 0.0 K/mm3 07/08/19 04:00 Myelocytes # 0.0 K/mm3 07/08/19 04:00 Promyelocytes # 0.0 K/mm3 07/08/19 04:00 Blast Cells # 0.0 K/mm3 07/08/19 04:00 WBC Morphology Not Reportable 07/08/19 04:00 Hypersegmented Neuts Not Reportable 07/08/19 04:00 Hyposegmented Neuts Not Reportable 07/08/19 04:00 Hypogranular Neuts Not Reportable 07/08/19 04:00 Smudge Cells Not Reportable 07/08/19 04:00 Toxic Granulation Not Reportable 07/08/19 04:00 Toxic Vacuolation Not Reportable 07/08/19 04:00 Dohle Bodies Not Reportable 07/08/19 04:00 Pelger-Huet Anomaly Not Reportable 07/08/19 04:00 Renea Rods Not Reportable 07/08/19 04:00 Platelet Estimate Consistent w auto 07/08/19 04:00 Clumped Platelets Not Reportable 07/08/19 04:00 Plt Clumps, EDTA Not Reportable 07/08/19 04:00 Large Platelets Not Reportable 07/08/19 04:00 Giant Platelets Not Reportable 07/08/19 04:00 Platelet Satelliting Not Reportable 07/08/19 04:00 Plt Morphology Comment Not Reportable 07/08/19 04:00 RBC Morphology Not Reportable 07/08/19 04:00 Dimorphic RBCs Not Reportable 07/08/19 04:00 Polychromasia Not Reportable 07/08/19 04:00 Hypochromasia Not Reportable 07/08/19 04:00 Poikilocytosis Not Reportable 07/08/19 04:00 Anisocytosis 1+ 07/08/19 04:00 Microcytosis Not Reportable 07/08/19 04:00 Macrocytosis Not Reportable 07/08/19 04:00 Spherocytes Not Reportable 07/08/19 04:00 Pappenheimer Bodies Not Reportable 07/08/19 04:00 Sickle Cells Not Reportable 07/08/19 04:00 Target Cells Not Reportable 07/08/19 04:00 Tear Drop Cells Not Reportable 07/08/19 04:00 Ovalocytes Not Reportable 07/08/19 04:00 Stomatocytes 3+ 06/23/19 05:24 Helmet Cells Not Reportable 07/08/19 04:00 [place]ow Bodies Not Reportable 07/08/19 04:00 [place] Rings Not Reportable 07/08/19 04:00 Dennis Cells Not Reportable 07/08/19 04:00 Bite Cells Not Reportable 07/08/19 04:00 Crenated Cell Not Reportable 07/08/19 04:00 Elliptocytes Not Reportable 07/08/19 04:00 Acanthocytes (Spur) Not Reportable 07/08/19 04:00 Rouleaux Not Reportable 07/08/19 04:00 Hemoglobin C Crystals Not Reportable 07/08/19 04:00 Schistocytes Not Reportable 07/08/19 04:00 Malaria parasites Not Reportable 07/08/19 04:00 Syed Bodies Not Reportable 07/08/19 04:00 Hem Pathologist Commnt No 07/08/19 04:00 PT 15.4 Sec. (12.2-14.9) H 05/01/19 Unknown INR 1.23 (0.87-1.13) H 05/01/19 Unknown APTT 22.7 Sec. (24.2-36.6) L 05/01/19 Unknown Fibrinogen 194 mg/dl (211-480) L 06/17/19 12:45 Heparin Anti-Xa, Unfract Negative (Negative) 06/17/19 12:45 POC ABG pH 7.462 (7.35-7.45) H 06/05/19 03:52 ABG pH 7.469 pH Units (7.350-7.450) H 06/23/19 02:00 POC ABG pCO2 39.8 (35-45) 06/05/19 03:52 ABG pCO2 39.4 mm Hg 06/23/19 02:00 POC ABG pO2 86 (80-105) 06/05/19 03:52 ABG pO2 58.7 mm Hg (80.0-90.0) L 06/23/19 02:00 POC ABG HCO3 28.4 (22-26 mml/L) 06/05/19 03:52 ABG HCO3 28.0 mmol/L (20.0-26.0) H 06/23/19 02:00 POC ABG Total CO2 30 (23-27mmol/L) 06/05/19 03:52 POC ABG O2 Sat 97 06/05/19 03:52 ABG O2 Saturation 94.6 % (95.0-99.0) L 06/23/19 02:00 ABG O2 Content 9.2 (0.0-44) 06/23/19 02:00 POC ABG Base Excess 5 ((-2) - (+3)mmol/L) 06/05/19 03:52 ABG Base Excess 4.0 mmol/L (-2.0-3.0) H 06/23/19 02:00 ABG Hemoglobin 7.1 gm/dl (14.0-18.0) L 06/23/19 02:00 ABG Carboxyhemoglobin 2.0 % (0.0-5.0) 06/23/19 02:00 ABG Methemoglobin 0.5 % (0.0-1.5) 06/23/19 02:00 Oxyhemoglobin 92.2 % (95.0-99.0) L 06/23/19 02:00 FiO2 30 % 06/23/19 02:00 Sodium 139 mmol/L (137-145) 07/23/19 05:28 Potassium 3.9 mmol/L (3.6-5.0) 07/23/19 05:28 Chloride 98.2 mmol/L (98-107) 07/23/19 05:28 Carbon Dioxide 22 mmol/L (22-30) 07/23/19 05:28 Anion Gap 23 mmol/L 07/23/19 05:28 BUN 8 mg/dL (9-20) L 07/23/19 05:28 Creatinine 0.5 mg/dL (0.8-1.5) L 07/23/19 05:28 Estimated GFR > 60 ml/min 07/23/19 05:28 BUN/Creatinine Ratio 16 % 07/23/19 05:28 Glucose 97 mg/dL (75-100) 07/23/19 05:28 POC Glucose 107 (70-105) H 07/26/19 05:53 Osmolality 327 Mosm/kg 05/07/19 13:45 Uric Acid 18.0 mg/dL (3.5-7.6) H 05/07/19 13:45 Calcium 9.8 mg/dL (8.4-10.2) 07/23/19 05:28 Phosphorus 3.70 mg/dL (2.5-4.5) 06/10/19 05:45 Magnesium 1.60 mg/dL (1.7-2.3) L 06/26/19 04:43 Iron 45 ug/dL (49-181) L 06/20/19 09:12 TIBC 110 mcg/dL (250-450) L 06/20/19 09:12 Ferritin 315.2 ng/mL (13.0-400.0) 06/20/19 09:12 Total Bilirubin 0.50 mg/dL (0.1-1.2) 06/08/19 04:20 AST 23 units/L (5-40) 06/08/19 04:20 ALT 66 units/L (7-56) H 06/08/19 04:20 Alkaline Phosphatase 59 units/L (35-129) 06/08/19 04:20 Total Creatine Kinase 131 units/L (55-170) 05/02/19 04:41 CK-MB (CK-2) 5.2 ng/mL (0.0-4.0) H 05/02/19 04:41 CK-MB (CK-2) Rel Index 3.9 (0-4) 05/02/19 04:41 Troponin T 0.067 ng/mL (0.00-0.029) H D 05/02/19 04:41 NT-Pro-B Natriuret Pep 6831 pg/mL (0-450) H 05/01/19 Unknown Total Protein 5.5 g/dL (6.3-8.2) L 06/08/19 04:20 Albumin 2.9 g/dL (3.9-5) L 06/08/19 04:20 Albumin/Globulin Ratio 1.1 % 06/08/19 04:20 Triglycerides 210 mg/dL (2-149) H 06/19/19 04:30 Cholesterol 173 mg/dL (50-199) 05/02/19 00:06 LDL Cholesterol Direct 126 mg/dL (50-130) 05/02/19 00:06 HDL Cholesterol 18 mg/dL (40-59) L 05/02/19 00:06 Cholesterol/HDL Ratio 9.61 % 05/02/19 00:06 Serotonin Release Assay See scanned results 06/17/19 12:45 Vitamin B12 353.0 pg/mL (211-911) 06/20/19 09:12 Folate 7.01 ng/mL (7.3-26.0) L 06/20/19 09:12 Procalcitonin 0.05 ng/mL (<0.15) 06/17/19 12:45 Urine Color Yellow (Yellow) 06/17/19 12:45 Urine Turbidity Slightly-cloudy (Clear) 06/17/19 12:45 Urine pH 5.0 (5.0-7.0) 06/17/19 12:45 Ur Specific [place] 1.013 (1.003-1.030) 06/17/19 12:45 Urine Protein <15 mg/dl mg/dL (Negative) 06/17/19 12:45 Urine Glucose (UA) Neg mg/dL (Negative) 06/17/19 12:45 Urine Ketones Neg mg/dL (Negative) 06/17/19 12:45 Urine Blood Sm (Negative) 06/17/19 12:45 Urine Nitrite Neg (Negative) 06/17/19 12:45 Urine Bilirubin Neg (Negative) 06/17/19 12:45 Urine Urobilinogen < 2.0 mg/dL (<2.0) 06/17/19 12:45 Ur Leukocyte Esterase Neg (Negative) 06/17/19 12:45 Urine WBC (Auto) 2.0 /HPF (0.0-6.0) 06/17/19 12:45 Urine RBC (Auto) 2.0 /HPF (0.0-6.0) 06/17/19 12:45 U Epithel Cells (Auto) < 1.0 /HPF (0-13.0) 06/17/19 12:45 Urine Bacteria (Auto) 1+ /HPF (Negative) 05/20/19 12:00 Uric Acid Crystals 3+ 05/03/19 10:55 Urine Mucus Few /HPF 06/17/19 12:45 Urine Yeast (Budding) 3+ /HPF 05/20/19 12:00 Urine Creatinine 292.8 mg/dL (0.1-20.0) H 05/07/19 22:40 Urine Sodium 11 mmol/L 05/07/19 22:40 Urine Total Protein 269 mg/dL (5-11.8) H 05/07/19 22:40 Vancomycin Trough 20.5 ug/mL (5.0-20.0) H 05/15/19 09:00 Random Vancomycin 11.5 ug/mL (0-40.0) 05/27/19 06:00 AMNA Screen Negative (Negative) 05/07/19 13:45 Heparin-induced Plt Ab Negative (Negative) 06/17/19 12:45 UF Heparin High Dose 13 % Release 06/17/19 12:45 YUNG UFH Low Dose 0.1 8 % Release 06/17/19 12:45 YUNG UFH Low Dose 0.5 7 % Release 06/17/19 12:45 Hepatitis A IgM Ab Non-reactive (NonReactive) 05/07/19 13:45 Hep Bs Antigen Non-reactive (Negative) 05/07/19 13:45 Hep B Core IgM Ab Non-reactive (NonReactive) 05/07/19 13:45 Hepatitis C Antibody Non-reactive (NonReactive) 05/07/19 13:45 Influenza A (Rapid) Negative (Negative) 06/17/19 11:35 Influenza B (Rapid) Negative (Negative) 06/17/19 11:35 Active Medications - Current Medications Current Medications: Generic Name Dose Route Start Last Admin Trade Name Freq PRN Reason Stop Dose Admin Acetaminophen 650 mg 07/02/19 23:56 07/25/19 10:50 Tylenol PO 650 mg Q4H PRN Administration Pain, Mild (1-3) Amlodipine Besylate 10 mg 07/25/19 10:00 07/25/19 11:16 Amlodipine PO Not Given DAILY VICKEY Lipase/Protease/Amylase 1 each 07/15/19 12:26 Pancreaze 10,500 Unit FEEDTUBE PRN PRN For Clogged Feeding Tube Apixaban 2.5 mg 06/23/19 22:00 07/25/19 21:28 Eliquis PO 2.5 mg Q12HR VICKEY Administration Protocol Dextrose 50 gm 05/01/19 20:24 D50w (25gm) Vial IV Q30MIN PRN Hypoglycemia Protocol Famotidine 20 mg 06/17/19 10:00 07/25/19 21:28 Pepcid PO 20 mg BID VICKEY Administration Ferrous Sulfate 308 mg 06/18/19 12:00 07/25/19 10:50 Ferrous Sulfate PO 308 mg QDAY VICKEY Administration Hydrochlorothiazide 25 mg 06/26/19 11:00 07/25/19 10:50 Hctz PO 25 mg QDAY VICKEY Administration Insulin Human Lispro 0 unit 06/01/19 14:00 07/26/19 05:41 Humalog SUB-Q Not Given Q6HR [facility] Protocol Labetalol HCl 200 mg 06/28/19 10:00 07/26/19 05:42 Labetalol PO Not Given Q8HR [facility] Multi-Ingred Cream/Lotion/Oil/Oint 1 applic 06/16/19 18:00 Artificial Tears Ophth Oint OU Q4HR PRN Dry Eye(s) Multivitamins 5 ml 06/29/19 12:00 07/25/19 10:50 Centrum Liq PO 5 ml QDAY VICKEY Administration Ondansetron HCl 4 mg 07/22/19 16:14 Zofran IV Q8H PRN Nausea And Vomiting Scopolamine 1 each 06/27/19 09:00 07/24/19 09:47 Transderm-Scop TD 1 each Q3D VICKEY Administration Simple Syrup 15 ml 07/15/19 12:26 Simple Syrup FEEDTUBE PRN PRN Hypoglycemia Simple Syrup 30 ml 07/15/19 12:26 Simple Syrup FEEDTUBE PRN PRN Hypoglycemia Sodium Bicarbonate 325 mg 07/15/19 12:26 Sodium Bicarbonate FEEDTUBE PRN PRN For Clogged Feeding Tube Nutrition/Malnutrition Assess - Dietary Evaluation Nutrition/Malnutrition Findings: Nutrition Notes Start: 05/04/19 12:54 Freq: Status: Active Protocol: Document 07/21/19 10:49 CT (Rec: 07/21/19 10:53 CT [email or web address]) Co-Sign 07/21/19 10:49 LP Nutrition Notes Initial or Follow up Reassessment Current Diagnosis Acute Kidney Injury,Sepsis, Respiratory Failure Current Diet Osmolite 1.5 at 60 ml/hr Labs/Tests Glu 116 Pertinent Medications Humalog Height 6 ft 4 in Weight 189.8 kg [place] Body Weight (kg) 91.81 BMI 50.9 Weight Status Morbidly Obese Subjective/Other Information Osmolite running at 60 ml/hr at time of visit. Pt tolerating TF. No definite POC noted by RN at this time. Percent of energy/protein needs met: 100%/100% Burn Absent Trauma Absent GI Symptoms None Current % PO Negligible Minimum of two criteria No Fluid Accumulation Moderate to Severe (severe) #1 Nutrition Diagnosis Inadequate oral intake Diagnosis Progress(for reassessment Continues documentation) Is patient on ventilator? Yes Is Patient Ambulatory and/or Out of Bed No REE-([place]-confined to bed) 3534.288 Kcal/Kg value to use for calculation 11 Approximate Energy Requirements Using 8 kcal/Kg Calculation Used for Recommendations Kcal/kg Additional Notes PRO needs: 73-91g (0.8-1 g/kg IBW 91kg CARLA resolved) Fluid needs: 1 ml/kcal Nutrition Intervention Change Diet Order: Continue TF Nutrition Support: Osmolite at 60 ml/hr Flush 200 ml q4h Kcal 2,160 Protein (gm) 90 Fluid (mL) 1,097 Goal #1 TF tolerance Goal #2 Meet at least 80% of PRO/kcal needs via TF Anticipated Discharge Needs: Unable to determine at this time Follow-Up By: 07/30/19 Additional Comments Follow up for TF/POC
[2019-07-26] MEDS: APIXABAN 2.5 MG TAB PO SCH ×2 (12:23→22:05)
[2019-07-26] MEDS: FAMOTIDINE 20 MG TAB PO SCH ×2 (12:24→22:06)
[2019-07-26] MEDS: FERROUS SULFATE 308 MG (62mg Elemental Iron) / 7 ML ELIXIR PO SCH (12:24)
[2019-07-26] MEDS: hydroCHLOROthiazide 25 MG TAB PO SCH (12:24)
[2019-07-26] MEDS: amLODIPine 10 MG TAB PO SCH (12:24)
[2019-07-26] MEDS: MULTIVITAMINS 5 ML ORAL LIQUID PO SCH (12:24)
[2019-07-27] MEDS: INSULIN LISPRO 100 UNIT/ML SUB-Q SCH ×4 (00:55→17:05)
--- NOTE | 2019-07-27 08:10 | Progress Note ---
Assessment and Plan 34 y/o male with acute hypoxic, hypercapnic respiratory failure now with trach and uncontrolled hypertension. 07/27/2019: No new recs. Tolerated trach change. Trach is indefinite. Pulm status stable for discharge. Family will need to be trained on trach care. 07/23/2019: No new recs. Would suggest moving patient closer to nursing station. Will see PRN over the weekend 07/21/2019: No new recs. Pulm status stable. Placement is barrier to discharge given lack of funding and mother not responding. 07/19/2019: Stable pulm status. Per CM called mother to discuss goals of care but she has not responded. 07/16/2019: Stable pulm status. Will see PRN over the weekend. 07/15/2019: Patient has been stable pulm murphy thus far. No objection with transfer to [facility], close to nursing station though given history of patient pulling out trach. 07/13/2019: No new recs from today. Please see below. 07/10/2019: Continue PT/OT 07/09/2019: No new recs for today. Contiue PT/OT. Disposition is unknown secondary to lack of funding. 07/08/19: No new recs for today. Contiue PT/OT. Disposition is unknown secondary to lack of funding. 07/07/19. Stopping prednisone as this wasn't stopped over the weekend. Needs suctioning and asked that if transferred please place patient close as possible to nursing station. 07/06/19: Continue IMCU care. Requires frequent suctioning. PT/OT 07/02/19: Patient should not be transferred to the floor. Although his pulm status is stable, he is very high risk for decompensation and if the incident that happened last night, happened on the floor, that may have been his demise. Ok with right arm restraint for now. 07/01/2019: Continue current care. PT/OT. Work on discharge planning. steroids to 5 daily, will likely stop Friday or Friday. Stable but my concern is that if he goes to the floor, he will not get the proper suctioning needed. Will continue IMCU service 06/26/2019: Will discontinue vent from room. patient was placed on vent last night. Not sure why. Will place orders for continued T-piece. Appears he was doing well with no issues. If tolerates being off vent tonight, transition to step down tomorrow. Increase HCTZ to 25 06/25/2019: Continue T-piece today as tolerated. Only rest of vent if needed. If not needed tonight then will discontinue vent from room. Spoke with IR, and they will remove Perm cath today as this could be a cause of fevers. Follow up cultures and ID recs. Will increase Free H2O to [id number]. Change steroids to 10 PO starting tomorrow morning. Added scheduled BP meds. 06/24/2019: Will attempt T-piece later today, if tolerates, then will continue trial indefinitely. PT/OT will need to start seeing him again. Will drop steroids to 10 daily (PO) starting Friday morning. 06/23/2019: PSV all day today and tomorrow. Will start T-piece either tomorrow or Friday. Tolerating Feeds 06/22/2019: Patient scheduled for OR today. Plan as outlined in Dr. Saez's note from yesterday. Discussed with patient again this am. Really appreciate surgery help with this and the promptness of procedure. Will follow up post-op later today. 06/21/2019: Unfortunately re-intubated last week. Will need Trach and Peg, but I doubt peg will happen secondary to his size. Will discuss with surgery and maybe they can just put in a number 6 XLT from the start. I think he will get off the vent relatively quickly and can start to eat. This trach will be indefinite. I have explained this to him. I have not seen his family at the bedside during this admission but Im told they come in the evenings. 06/12/2019: Started HCTZ 50 daily and Labetalol 100 TID. Will increase Labetalol to 200 TID. Already on Clonidine patch. Continue Minoxidil. Will start to wean drip. PT/OT. Feeds through NG now that this is in place. Will need speech re-evaluation. Will order NT suctioning at least [id number] for the next 24 hours. 06/11/2019: Bipap at night and PRN. Na levels are increasing. Agree with D5W. Unable to place DH, several nurses tried. Will ask speech to come by and reassess now that patient is more willing to cooperate. . Continue PT/OT, sat up on side of bed yesterday. Continue IMCU monitoring for now. As stated below, patient was intubated for 37 days. CCT 31 minutes. Subjective Date of service: 07/27/19 Principal diagnosis: anemia - LOw PLT Interval history: Trach changed out yesterday to a 6 XLT. Tolerated well with no issues. CM working on patient going home to Grandmother's house. Objective Vital Signs - 12hr 07/26/19 07/26/19 07/26/19 20:11 22:00 22:05 Temperature 99.0 F 99.1 F Pulse Rate 89 102 H Respiratory 20 20 Rate Blood Pressure 114/76 114/76 Blood Pressure 114/69 [Left] O2 Sat by Pulse 96 Oximetry O2 Sat by Pulse Oximetry [ Assessment] 07/26/19 07/26/19 07/27/19 23:33 23:39 00:00 Temperature 99.1 F Pulse Rate 89 Respiratory 20 Rate Blood Pressure 114/69 Blood Pressure [Left] O2 Sat by Pulse 98 Oximetry O2 Sat by Pulse Oximetry [ Assessment] 07/27/19 07/27/19 07/27/19 00:05 04:54 05:00 Temperature 99.0 F 99 F Pulse Rate 95 H Respiratory 20 20 Rate Blood Pressure 135/64 Blood Pressure 136/64 [Left] O2 Sat by Pulse 95 Oximetry O2 Sat by Pulse 99 Oximetry [ Assessment] 07/27/19 05:25 Temperature Pulse Rate 88 Respiratory Rate Blood Pressure 135/64 Blood Pressure [Left] O2 Sat by Pulse Oximetry O2 Sat by Pulse Oximetry [ Assessment] Constitutional: other (morbidly obese male,on trach tpiece) Eyes: non-icteric ENT: oropharynx moist Neck: supple, other (extremely large in circumference trach in place) Effort: normal Ascultation: Bilateral: diminished breath sounds (secondary to body habitus), rhonchi, other (Upper airway noises due to secretions) Cardiovascular: regular rate and rhythm (no mrg) Gastrointestinal: normoactive bowel sounds, soft, non-tender, other (obese) Integumentary: other (L hand is wrapped) Extremities: no cyanosis, pink and warm, other (1+ generalized edema) Neurologic: normal mental status, non-focal exam Psychiatric: mood appropriate, affect normal CBC and BMP: 07/23/19 05:28 07/23/19 05:28 ABG, PT/INR, D-dimer: ABG POC ABG pH 7.462 (7.35-7.45) H 06/05/19 03:52 ABG pH 7.469 pH Units (7.350-7.450) H 06/23/19 02:00 POC ABG pCO2 39.8 (35-45) 06/05/19 03:52 ABG pCO2 39.4 mm Hg 06/23/19 02:00 POC ABG pO2 86 (80-105) 06/05/19 03:52 ABG pO2 58.7 mm Hg (80.0-90.0) L 06/23/19 02:00 POC ABG HCO3 28.4 (22-26 mml/L) 06/05/19 03:52 POC ABG Total CO2 30 (23-27mmol/L) 06/05/19 03:52 POC ABG O2 Sat 97 06/05/19 03:52 ABG O2 Saturation 94.6 % (95.0-99.0) L 06/23/19 02:00 PT/INR, D-dimer PT 15.4 Sec. (12.2-14.9) H 05/01/19 Unknown INR 1.23 (0.87-1.13) H 05/01/19 Unknown Abnormal lab findings: Abnormal Labs 05/01/19 05/01/19 05/01/19 17:50 19:26 22:36 WBC RBC Hgb Hct MCV MCH MCHC RDW Plt Count Lymph % (Auto) Tift % (Auto) Eos % (Auto) Lymph # Tift # Eos # Seg Neutrophils % Seg Neuts % (Manual) Lymphocytes % (Manual) Monocytes % (Manual) Eosinophils % (Manual) Nucleated RBC % Seg Neutrophils # Seg Neutrophils # Man Lymphocytes # (Manual) Monocytes # (Manual) Eosinophils # (Manual) PT INR APTT Fibrinogen POC ABG pH 7.272 L 7.331 L ABG pH POC ABG pCO2 52.8 H POC ABG pO2 ABG pO2 ABG HCO3 ABG O2 Saturation ABG Base Excess ABG Hemoglobin Oxyhemoglobin Sodium 136 L Potassium 6.5 H* Chloride 97.2 L Carbon Dioxide BUN 60 H Creatinine Glucose 113 H POC Glucose Uric Acid Calcium Phosphorus Magnesium 2.40 H Iron TIBC AST 139 H ALT 154 H Total Creatine Kinase CK-MB (CK-2) Troponin T NT-Pro-B Natriuret Pep Total Protein Albumin 3.8 L Triglycerides HDL Cholesterol Folate Urine WBC (Auto) Urine Creatinine Urine Total Protein Vancomycin Trough 05/01/19 05/01/19 05/01/19 Unknown Unknown Unknown WBC 16.1 H RBC Hgb Hct MCV MCH MCHC RDW 17.2 H Plt Count Lymph % (Auto) Tift % (Auto) 9.6 H Eos % (Auto) Lymph # Tift # 1.5 H Eos # Seg Neutrophils % 73.0 H Seg Neuts % (Manual) Lymphocytes % (Manual) Monocytes % (Manual) Eosinophils % (Manual) Nucleated RBC % Seg Neutrophils # 11.7 H Seg Neutrophils # Man Lymphocytes # (Manual) Monocytes # (Manual) Eosinophils # (Manual) PT 15.4 H INR 1.23 H APTT 22.7 L Fibrinogen POC ABG pH ABG pH POC ABG pCO2 POC ABG pO2 ABG pO2 ABG HCO3 ABG O2 Saturation ABG Base Excess ABG Hemoglobin Oxyhemoglobin Sodium Potassium Chloride Carbon Dioxide BUN Creatinine Glucose POC Glucose Uric Acid Calcium Phosphorus Magnesium Iron TIBC AST ALT Total Creatine Kinase CK-MB (CK-2) Troponin T NT-Pro-B Natriuret Pep 6831 H Total Protein Albumin Triglycerides HDL Cholesterol Folate Urine WBC (Auto) Urine Creatinine Urine Total Protein Vancomycin Trough 05/01/19 05/02/19 05/02/19 Unknown 00:06 00:06 WBC RBC Hgb Hct MCV MCH MCHC RDW Plt Count Lymph % (Auto) Tift % (Auto) Eos % (Auto) Lymph # Tift # Eos # Seg Neutrophils % Seg Neuts % (Manual) Lymphocytes % (Manual) Monocytes % (Manual) Eosinophils % (Manual) Nucleated RBC % Seg Neutrophils # Seg Neutrophils # Man Lymphocytes # (Manual) Monocytes # (Manual) Eosinophils # (Manual) PT INR APTT Fibrinogen POC ABG pH ABG pH POC ABG pCO2 POC ABG pO2 ABG pO2 ABG HCO3 ABG O2 Saturation ABG Base Excess ABG Hemoglobin Oxyhemoglobin Sodium Potassium Chloride Carbon Dioxide BUN Creatinine Glucose POC Glucose Uric Acid Calcium Phosphorus 4.90 H Magnesium Iron TIBC AST ALT Total Creatine Kinase 226 H CK-MB (CK-2) 5.7 H Troponin T 0.044 H NT-Pro-B Natriuret Pep Total Protein Albumin Triglycerides 182 H HDL Cholesterol 18 L Folate Urine WBC (Auto) Urine Creatinine Urine Total Protein Vancomycin Trough 05/02/19 05/02/19 05/02/19 02:08 04:40 04:41 WBC 17.6 H RBC Hgb Hct MCV MCH 27 L MCHC RDW 17.4 H Plt Count Lymph % (Auto) 10.2 L Tift % (Auto) 11.0 H Eos % (Auto) Lymph # Tift # 1.9 H Eos # Seg Neutrophils % 78.0 H Seg Neuts % (Manual) Lymphocytes % (Manual) Monocytes % (Manual) Eosinophils % (Manual) Nucleated RBC % Seg Neutrophils # 13.8 H Seg Neutrophils # Man Lymphocytes # (Manual) Monocytes # (Manual) Eosinophils # (Manual) PT INR APTT Fibrinogen POC ABG pH ABG pH POC ABG pCO2 46.8 H POC ABG pO2 63 L ABG pO2 ABG HCO3 ABG O2 Saturation ABG Base Excess ABG Hemoglobin Oxyhemoglobin Sodium Potassium Chloride 96.3 L Carbon Dioxide BUN 63 H Creatinine 1.7 H Glucose POC Glucose Uric Acid Calcium Phosphorus Magnesium Iron TIBC AST ALT Total Creatine Kinase CK-MB (CK-2) Troponin T NT-Pro-B Natriuret Pep Total Protein Albumin Triglycerides HDL Cholesterol Folate Urine WBC (Auto) Urine Creatinine Urine Total Protein Vancomycin Trough 05/02/19 05/02/19 05/02/19 04:41 04:41 16:05 WBC RBC Hgb Hct MCV MCH MCHC RDW Plt Count Lymph % (Auto) Tift % (Auto) Eos % (Auto) Lymph # Tift # Eos # Seg Neutrophils % Seg Neuts % (Manual) Lymphocytes % (Manual) Monocytes % (Manual) Eosinophils % (Manual) Nucleated RBC % Seg Neutrophils # Seg Neutrophils # Man Lymphocytes # (Manual) Monocytes # (Manual) Eosinophils # (Manual) PT INR APTT Fibrinogen POC ABG pH ABG pH POC ABG pCO2 POC ABG pO2 ABG pO2 66.6 L ABG HCO3 31.9 H ABG O2 Saturation 92.5 L ABG Base Excess 5.8 H ABG Hemoglobin 13.3 L Oxyhemoglobin 90.6 L Sodium Potassium Chloride 97.2 L Carbon Dioxide BUN 61 H Creatinine 1.8 H Glucose POC Glucose Uric Acid Calcium Phosphorus Magnesium Iron TIBC AST ALT Total Creatine Kinase CK-MB (CK-2) 5.2 H Troponin T 0.067 H D NT-Pro-B Natriuret Pep Total Protein Albumin Triglycerides HDL Cholesterol Folate Urine WBC (Auto) Urine Creatinine Urine Total Protein Vancomycin Trough 05/02/19 05/03/19 05/03/19 20:39 04:35 05:05 WBC 11.8 H RBC Hgb Hct MCV MCH 27 L MCHC 31 L RDW 17.2 H Plt Count Lymph % (Auto) Tift % (Auto) Eos % (Auto) Lymph # Tift # Eos # Seg Neutrophils % Seg Neuts % (Manual) Lymphocytes % (Manual) Monocytes % (Manual) Eosinophils % (Manual) Nucleated RBC % Seg Neutrophils # Seg Neutrophils # Man Lymphocytes # (Manual) Monocytes # (Manual) Eosinophils # (Manual) PT INR APTT Fibrinogen POC ABG pH ABG pH POC ABG pCO2 53.6 H 54.0 H POC ABG pO2 55 L 63 L ABG pO2 ABG HCO3 ABG O2 Saturation ABG Base Excess ABG Hemoglobin Oxyhemoglobin Sodium Potassium Chloride Carbon Dioxide BUN Creatinine Glucose POC Glucose Uric Acid Calcium Phosphorus Magnesium Iron TIBC AST ALT Total Creatine Kinase CK-MB (CK-2) Troponin T NT-Pro-B Natriuret Pep Total Protein Albumin Triglycerides HDL Cholesterol Folate Urine WBC (Auto) Urine Creatinine Urine Total Protein Vancomycin Trough 05/03/19 05/03/19 05/03/19 05:05 10:55 16:48 WBC RBC Hgb Hct MCV MCH MCHC RDW Plt Count Lymph % (Auto) Tift % (Auto) Eos % (Auto) Lymph # Tift # Eos # Seg Neutrophils % Seg Neuts % (Manual) Lymphocytes % (Manual) Monocytes % (Manual) Eosinophils % (Manual) Nucleated RBC % Seg Neutrophils # Seg Neutrophils # Man Lymphocytes # (Manual) Monocytes # (Manual) Eosinophils # (Manual) PT INR APTT Fibrinogen POC ABG pH 7.604 H ABG pH POC ABG pCO2 POC ABG pO2 58 L ABG pO2 ABG HCO3 ABG O2 Saturation ABG Base Excess ABG Hemoglobin Oxyhemoglobin Sodium Potassium Chloride Carbon Dioxide BUN 52 H Creatinine 1.9 H Glucose 103 H POC Glucose Uric Acid Calcium Phosphorus Magnesium Iron TIBC AST ALT Total Creatine Kinase CK-MB (CK-2) Troponin T NT-Pro-B Natriuret Pep Total Protein Albumin Triglycerides HDL Cholesterol Folate Urine WBC (Auto) 33.0 H Urine Creatinine Urine Total Protein Vancomycin Trough 05/04/19 05/04/19 05/04/19 04:49 06:50 06:50 WBC 16.0 H RBC Hgb Hct MCV MCH 27 L MCHC 31 L RDW 17.8 H Plt Count Lymph % (Auto) Tift % (Auto) Eos % (Auto) Lymph # Tift # Eos # Seg Neutrophils % Seg Neuts % (Manual) Lymphocytes % (Manual) Monocytes % (Manual) Eosinophils % (Manual) Nucleated RBC % Seg Neutrophils # Seg Neutrophils # Man Lymphocytes # (Manual) Monocytes # (Manual) Eosinophils # (Manual) PT INR APTT Fibrinogen POC ABG pH 7.273 L ABG pH POC ABG pCO2 POC ABG pO2 ABG pO2 ABG HCO3 ABG O2 Saturation ABG Base Excess ABG Hemoglobin Oxyhemoglobin Sodium 148 H Potassium 5.5 H Chloride Carbon Dioxide BUN 53 H Creatinine 3.3 H D Glucose 106 H POC Glucose Uric Acid Calcium 8.3 L Phosphorus Magnesium Iron TIBC AST ALT Total Creatine Kinase CK-MB (CK-2) Troponin T NT-Pro-B Natriuret Pep Total Protein Albumin Triglycerides HDL Cholesterol Folate Urine WBC (Auto) Urine Creatinine Urine Total Protein Vancomycin Trough 05/05/19 05/05/19 05/05/19 00:05 04:30 05:00 WBC RBC Hgb Hct MCV MCH MCHC RDW Plt Count Lymph % (Auto) Tift % (Auto) Eos % (Auto) Lymph # Tift # Eos # Seg Neutrophils % Seg Neuts % (Manual) Lymphocytes % (Manual) Monocytes % (Manual) Eosinophils % (Manual) Nucleated RBC % Seg Neutrophils # Seg Neutrophils # Man Lymphocytes # (Manual) Monocytes # (Manual) Eosinophils # (Manual) PT INR APTT Fibrinogen POC ABG pH 7.225 L ABG pH POC ABG pCO2 > 70 H POC ABG pO2 ABG pO2 ABG HCO3 ABG O2 Saturation ABG Base Excess ABG Hemoglobin Oxyhemoglobin Sodium 151 H Potassium 5.1 H Chloride Carbon Dioxide BUN 64 H Creatinine 3.5 H Glucose 117 H POC Glucose 141 H Uric Acid Calcium 7.5 L Phosphorus Magnesium Iron TIBC AST 93 H ALT 65 H Total Creatine Kinase CK-MB (CK-2) Troponin T NT-Pro-B Natriuret Pep Total Protein Albumin 2.9 L Triglycerides HDL Cholesterol Folate Urine WBC (Auto) Urine Creatinine Urine Total Protein Vancomycin Trough 05/05/19 05/05/19 05/05/19 05:00 12:02 17:46 WBC 12.0 H RBC Hgb 11.3 L Hct MCV MCH 27 L MCHC 30 L RDW 18.4 H Plt Count Lymph % (Auto) 7.9 L Tift % (Auto) 10.2 H Eos % (Auto) Lymph # 1.0 L Tift # 1.2 H Eos # Seg Neutrophils % 80.8 H Seg Neuts % (Manual) Lymphocytes % (Manual) Monocytes % (Manual) Eosinophils % (Manual) Nucleated RBC % Seg Neutrophils # 9.7 H Seg Neutrophils # Man Lymphocytes # (Manual) Monocytes # (Manual) Eosinophils # (Manual) PT INR APTT Fibrinogen POC ABG pH ABG pH POC ABG pCO2 POC ABG pO2 ABG pO2 ABG HCO3 ABG O2 Saturation ABG Base Excess ABG Hemoglobin Oxyhemoglobin Sodium Potassium Chloride Carbon Dioxide BUN Creatinine Glucose POC Glucose 125 H 112 H Uric Acid Calcium Phosphorus Magnesium Iron TIBC AST ALT Total Creatine Kinase CK-MB (CK-2) Troponin T NT-Pro-B Natriuret Pep Total Protein Albumin Triglycerides HDL Cholesterol Folate Urine WBC (Auto) Urine Creatinine Urine Total Protein Vancomycin Trough 05/05/19 05/06/19 05/06/19 23:42 03:58 04:45 WBC 11.4 H RBC Hgb 10.7 L Hct 34.2 L MCV MCH 27 L MCHC 31 L RDW 16.9 H Plt Count Lymph % (Auto) Tift % (Auto) Eos % (Auto) Lymph # Tift # Eos # Seg Neutrophils % Seg Neuts % (Manual) Lymphocytes % (Manual) Monocytes % (Manual) Eosinophils % (Manual) Nucleated RBC % Seg Neutrophils # Seg Neutrophils # Man Lymphocytes # (Manual) Monocytes # (Manual) Eosinophils # (Manual) PT INR APTT Fibrinogen POC ABG pH ABG pH POC ABG pCO2 62.4 H POC ABG pO2 111 H ABG pO2 ABG HCO3 ABG O2 Saturation ABG Base Excess ABG Hemoglobin Oxyhemoglobin Sodium Potassium Chloride Carbon Dioxide BUN Creatinine Glucose POC Glucose 128 H Uric Acid Calcium Phosphorus Magnesium Iron TIBC AST ALT Total Creatine Kinase CK-MB (CK-2) Troponin T NT-Pro-B Natriuret Pep Total Protein Albumin Triglycerides HDL Cholesterol Folate Urine WBC (Auto) Urine Creatinine Urine Total Protein Vancomycin Trough 05/06/19 05/06/19 05/06/19 04:45 05:33 12:30 WBC RBC Hgb Hct MCV MCH MCHC RDW Plt Count Lymph % (Auto) Tift % (Auto) Eos % (Auto) Lymph # Tift # Eos # Seg Neutrophils % Seg Neuts % (Manual) Lymphocytes % (Manual) Monocytes % (Manual) Eosinophils % (Manual) Nucleated RBC % Seg Neutrophils # Seg Neutrophils # Man Lymphocytes # (Manual) Monocytes # (Manual) Eosinophils # (Manual) PT INR APTT Fibrinogen POC ABG pH ABG pH POC ABG pCO2 POC ABG pO2 ABG pO2 ABG HCO3 ABG O2 Saturation ABG Base Excess ABG Hemoglobin Oxyhemoglobin Sodium 149 H Potassium Chloride Carbon Dioxide 31 H BUN 67 H Creatinine 3.2 H Glucose 125 H POC Glucose 117 H 116 H Uric Acid Calcium 7.5 L Phosphorus Magnesium Iron TIBC AST ALT Total Creatine Kinase CK-MB (CK-2) Troponin T NT-Pro-B Natriuret Pep Total Protein Albumin Triglycerides HDL Cholesterol Folate Urine WBC (Auto) Urine Creatinine Urine Total Protein Vancomycin Trough 05/06/19 05/06/19 05/07/19 18:34 23:16 05:22 WBC RBC Hgb Hct MCV MCH MCHC RDW Plt Count Lymph % (Auto) Tift % (Auto) Eos % (Auto) Lymph # Tift # Eos # Seg Neutrophils % Seg Neuts % (Manual) Lymphocytes % (Manual) Monocytes % (Manual) Eosinophils % (Manual) Nucleated RBC % Seg Neutrophils # Seg Neutrophils # Man Lymphocytes # (Manual) Monocytes # (Manual) Eosinophils # (Manual) PT INR APTT Fibrinogen POC ABG pH ABG pH POC ABG pCO2 POC ABG pO2 ABG pO2 ABG HCO3 ABG O2 Saturation ABG Base Excess ABG Hemoglobin Oxyhemoglobin Sodium Potassium Chloride Carbon Dioxide BUN Creatinine Glucose POC Glucose 128 H 143 H 166 H Uric Acid Calcium Phosphorus Magnesium Iron TIBC AST ALT Total Creatine Kinase CK-MB (CK-2) Troponin T NT-Pro-B Natriuret Pep Total Protein Albumin Triglycerides HDL Cholesterol Folate Urine WBC (Auto) Urine Creatinine Urine Total Protein Vancomycin Trough 05/07/19 05/07/19 05/07/19 06:33 07:03 09:35 WBC RBC Hgb Hct MCV MCH MCHC RDW Plt Count Lymph % (Auto) Tift % (Auto) Eos % (Auto) Lymph # Tift # Eos # Seg Neutrophils % Seg Neuts % (Manual) Lymphocytes % (Manual) Monocytes % (Manual) Eosinophils % (Manual) Nucleated RBC % Seg Neutrophils # Seg Neutrophils # Man Lymphocytes # (Manual) Monocytes # (Manual) Eosinophils # (Manual) PT INR APTT Fibrinogen POC ABG pH 7.263 L 7.288 L ABG pH POC ABG pCO2 POC ABG pO2 51 L 56 L ABG pO2 ABG HCO3 ABG O2 Saturation ABG Base Excess ABG Hemoglobin Oxyhemoglobin Sodium Potassium Chloride Carbon Dioxide BUN 76 H Creatinine 3.2 H Glucose 147 H POC Glucose Uric Acid Calcium 7.9 L Phosphorus Magnesium Iron TIBC AST ALT Total Creatine Kinase CK-MB (CK-2) Troponin T NT-Pro-B Natriuret Pep Total Protein Albumin Triglycerides HDL Cholesterol Folate Urine WBC (Auto) Urine Creatinine Urine Total Protein Vancomycin Trough 05/07/19 05/07/19 05/07/19 09:35 12:17 13:45 WBC 13.4 H RBC Hgb 11.6 L Hct MCV MCH 27 L MCHC 31 L RDW 17.5 H Plt Count Lymph % (Auto) Tift % (Auto) Eos % (Auto) Lymph # Tift # Eos # Seg Neutrophils % Seg Neuts % (Manual) Lymphocytes % (Manual) Monocytes % (Manual) Eosinophils % (Manual) Nucleated RBC % Seg Neutrophils # Seg Neutrophils # Man Lymphocytes # (Manual) Monocytes # (Manual) Eosinophils # (Manual) PT INR APTT Fibrinogen POC ABG pH ABG pH POC ABG pCO2 POC ABG pO2 ABG pO2 ABG HCO3 ABG O2 Saturation ABG Base Excess ABG Hemoglobin Oxyhemoglobin Sodium Potassium Chloride Carbon Dioxide BUN Creatinine Glucose POC Glucose 130 H Uric Acid 18.0 H Calcium Phosphorus Magnesium Iron TIBC AST ALT Total Creatine Kinase CK-MB (CK-2) Troponin T NT-Pro-B Natriuret Pep Total Protein Albumin Triglycerides HDL Cholesterol Folate Urine WBC (Auto) Urine Creatinine Urine Total Protein Vancomycin Trough 05/07/19 05/07/19 05/08/19 17:39 22:40 05:06 WBC RBC Hgb Hct MCV MCH MCHC RDW Plt Count Lymph % (Auto) Tift % (Auto) Eos % (Auto) Lymph # Tift # Eos # Seg Neutrophils % Seg Neuts % (Manual) Lymphocytes % (Manual) Monocytes % (Manual) Eosinophils % (Manual) Nucleated RBC % Seg Neutrophils # Seg Neutrophils # Man Lymphocytes # (Manual) Monocytes # (Manual) Eosinophils # (Manual) PT INR APTT Fibrinogen POC ABG pH ABG pH POC ABG pCO2 POC ABG pO2 ABG pO2 ABG HCO3 ABG O2 Saturation ABG Base Excess ABG Hemoglobin Oxyhemoglobin Sodium Potassium Chloride Carbon Dioxide BUN Creatinine Glucose POC Glucose 116 H 148 H Uric Acid Calcium Phosphorus Magnesium Iron TIBC AST ALT Total Creatine Kinase CK-MB (CK-2) Troponin T NT-Pro-B Natriuret Pep Total Protein Albumin Triglycerides HDL Cholesterol Folate Urine WBC (Auto) Urine Creatinine 292.8 H Urine Total Protein 269 H Vancomycin Trough 05/08/19 05/08/19 05/08/19 05:32 11:28 13:48 WBC RBC Hgb Hct MCV MCH MCHC RDW Plt Count Lymph % (Auto) Tift % (Auto) Eos % (Auto) Lymph # Tift # Eos # Seg Neutrophils % Seg Neuts % (Manual) Lymphocytes % (Manual) Monocytes % (Manual) Eosinophils % (Manual) Nucleated RBC % Seg Neutrophils # Seg Neutrophils # Man Lymphocytes # (Manual) Monocytes # (Manual) Eosinophils # (Manual) PT INR APTT Fibrinogen POC ABG pH ABG pH POC ABG pCO2 45.4 H POC ABG pO2 64 L ABG pO2 ABG HCO3 ABG O2 Saturation ABG Base Excess ABG Hemoglobin Oxyhemoglobin Sodium Potassium Chloride Carbon Dioxide BUN 73 H Creatinine 2.7 H Glucose 127 H POC Glucose 107 H Uric Acid Calcium 7.6 L Phosphorus Magnesium Iron TIBC AST ALT Total Creatine Kinase CK-MB (CK-2) Troponin T NT-Pro-B Natriuret Pep Total Protein Albumin Triglycerides HDL Cholesterol Folate Urine WBC (Auto) Urine Creatinine Urine Total Protein Vancomycin Trough 05/08/19 05/09/19 05/09/19 17:48 04:50 04:53 WBC RBC 3.07 L Hgb 8.5 L D Hct 29.3 L D MCV 96 H MCH MCHC 29 L RDW 18.1 H Plt Count Lymph % (Auto) Tift % (Auto) Eos % (Auto) Lymph # Tift # Eos # Seg Neutrophils % Seg Neuts % (Manual) Lymphocytes % (Manual) Monocytes % (Manual) Eosinophils % (Manual) Nucleated RBC % Seg Neutrophils # Seg Neutrophils # Man Lymphocytes # (Manual) Monocytes # (Manual) Eosinophils # (Manual) PT INR APTT Fibrinogen POC ABG pH 7.316 L ABG pH POC ABG pCO2 66.0 H POC ABG pO2 69 L ABG pO2 ABG HCO3 ABG O2 Saturation ABG Base Excess ABG Hemoglobin Oxyhemoglobin Sodium Potassium Chloride Carbon Dioxide BUN Creatinine Glucose POC Glucose 155 H Uric Acid Calcium Phosphorus Magnesium Iron TIBC AST ALT Total Creatine Kinase CK-MB (CK-2) Troponin T NT-Pro-B Natriuret Pep Total Protein Albumin Triglycerides HDL Cholesterol Folate Urine WBC (Auto) Urine Creatinine Urine Total Protein Vancomycin Trough 05/09/19 05/09/19 05/09/19 05:46 07:24 12:10 WBC RBC Hgb Hct MCV MCH MCHC RDW Plt Count Lymph % (Auto) Tift % (Auto) Eos % (Auto) Lymph # Tift # Eos # Seg Neutrophils % Seg Neuts % (Manual) Lymphocytes % (Manual) Monocytes % (Manual) Eosinophils % (Manual) Nucleated RBC % Seg Neutrophils # Seg Neutrophils # Man Lymphocytes # (Manual) Monocytes # (Manual) Eosinophils # (Manual) PT INR APTT Fibrinogen POC ABG pH ABG pH POC ABG pCO2 POC ABG pO2 ABG pO2 ABG HCO3 ABG O2 Saturation ABG Base Excess ABG Hemoglobin Oxyhemoglobin Sodium Potassium Chloride Carbon Dioxide BUN 73 H Creatinine 2.4 H Glucose 153 H POC Glucose 123 H 148 H Uric Acid Calcium 8.2 L Phosphorus Magnesium Iron TIBC AST 45 H ALT Total Creatine Kinase CK-MB (CK-2) Troponin T NT-Pro-B Natriuret Pep Total Protein 6.0 L Albumin 1.9 L Triglycerides HDL Cholesterol Folate Urine WBC (Auto) Urine Creatinine Urine Total Protein Vancomycin Trough 05/09/19 05/09/19 05/10/19 18:23 23:26 04:52 WBC RBC Hgb Hct MCV MCH MCHC RDW Plt Count Lymph % (Auto) [place] % (Auto) Eos % (Auto) Lymph # Tift # Eos # Seg Neutrophils % Seg Neuts % (Manual) Lymphocytes % (Manual) Monocytes % (Manual) Eosinophils % (Manual) Nucleated RBC % Seg Neutrophils # Seg Neutrophils # Man Lymphocytes # (Manual) Monocytes # (Manual) Eosinophils # (Manual) PT INR APTT Fibrinogen POC ABG pH 7.305 L ABG pH POC ABG pCO2 62.6 H POC ABG pO2 ABG pO2 ABG HCO3 ABG O2 Saturation ABG Base Excess ABG Hemoglobin Oxyhemoglobin Sodium Potassium Chloride Carbon Dioxide BUN Creatinine Glucose POC Glucose 147 H 121 H Uric Acid Calcium Phosphorus Magnesium Iron TIBC AST ALT Total Creatine Kinase CK-MB (CK-2) Troponin T NT-Pro-B Natriuret Pep Total Protein Albumin Triglycerides HDL Cholesterol Folate Urine WBC (Auto) Urine Creatinine Urine Total Protein Vancomycin Trough 05/10/19 05/10/19 05/10/19 05:00 05:00 05:50 WBC RBC Hgb 10.3 L Hct 33.7 L MCV MCH 27 L MCHC 31 L RDW 17.0 H Plt Count Lymph % (Auto) [place] % (Auto) Eos % (Auto) Lymph # [place] # Eos # Seg Neutrophils % Seg Neuts % (Manual) Lymphocytes % (Manual) Monocytes % (Manual) Eosinophils % (Manual) Nucleated RBC % Seg Neutrophils # Seg Neutrophils # Man Lymphocytes # (Manual) Monocytes # (Manual) Eosinophils # (Manual) PT INR APTT Fibrinogen POC ABG pH ABG pH POC ABG pCO2 POC ABG pO2 ABG pO2 ABG HCO3 ABG O2 Saturation ABG Base Excess ABG Hemoglobin Oxyhemoglobin Sodium 147 H Potassium Chloride Carbon Dioxide BUN 70 H Creatinine 2.6 H Glucose 155 H POC Glucose 158 H Uric Acid Calcium 8.2 L Phosphorus Magnesium Iron TIBC AST ALT Total Creatine Kinase CK-MB (CK-2) Troponin T NT-Pro-B Natriuret Pep Total Protein 6.1 L Albumin 2.5 L Triglycerides HDL Cholesterol Folate Urine WBC (Auto) Urine Creatinine Urine Total Protein Vancomycin Trough 05/10/19 05/11/19 05/11/19 13:14 07:26 11:40 WBC RBC Hgb Hct MCV MCH MCHC RDW Plt Count Lymph % (Auto) [place] % (Auto) Eos % (Auto) Lymph # [place] # Eos # Seg Neutrophils % Seg Neuts % (Manual) Lymphocytes % (Manual) Monocytes % (Manual) Eosinophils % (Manual) Nucleated RBC % Seg Neutrophils # Seg Neutrophils # Man Lymphocytes # (Manual) Monocytes # (Manual) Eosinophils # (Manual) PT INR APTT Fibrinogen POC ABG pH ABG pH POC ABG pCO2 48.0 H POC ABG pO2 58 L ABG pO2 ABG HCO3 ABG O2 Saturation ABG Base Excess ABG Hemoglobin Oxyhemoglobin Sodium 147 H Potassium Chloride 107.2 H Carbon Dioxide BUN 67 H Creatinine 2.6 H Glucose 121 H POC Glucose 159 H Uric Acid Calcium Phosphorus Magnesium Iron TIBC AST ALT Total Creatine Kinase CK-MB (CK-2) Troponin T NT-Pro-B Natriuret Pep Total Protein Albumin Triglycerides HDL Cholesterol Folate Urine WBC (Auto) Urine Creatinine Urine Total Protein Vancomycin Trough 12/05/11/19 05/12/19 18:13 23:46 04:40 WBC RBC Hgb Hct MCV MCH MCHC RDW Plt Count Lymph % (Auto) [place] % (Auto) Eos % (Auto) Lymph # [place] # Eos # Seg Neutrophils % Seg Neuts % (Manual) Lymphocytes % (Manual) Monocytes % (Manual) Eosinophils % (Manual) Nucleated RBC % Seg Neutrophils # Seg Neutrophils # Man Lymphocytes # (Manual) Monocytes # (Manual) Eosinophils # (Manual) PT INR APTT Fibrinogen POC ABG pH ABG pH 7.264 L POC ABG pCO2 POC ABG pO2 ABG pO2 66.8 L ABG HCO3 31.0 H ABG O2 Saturation 92.0 L ABG Base Excess ABG Hemoglobin 10.3 L Oxyhemoglobin 90.1 L Sodium Potassium Chloride Carbon Dioxide BUN Creatinine Glucose POC Glucose 120 H 121 H Uric Acid Calcium Phosphorus Magnesium Iron TIBC AST ALT Total Creatine Kinase CK-MB (CK-2) Troponin T NT-Pro-B Natriuret Pep Total Protein Albumin Triglycerides HDL Cholesterol Folate Urine WBC (Auto) Urine Creatinine Urine Total Protein Vancomycin Trough 05/12/19 05/12/19 05/12/19 04:45 04:45 11:14 WBC RBC Hgb 10.2 L Hct 32.4 L MCV MCH MCHC 31 L RDW 17.2 H Plt Count Lymph % (Auto) [place] % (Auto) Eos % (Auto) Lymph # [place] # Eos # Seg Neutrophils % Seg Neuts % (Manual) Lymphocytes % (Manual) Monocytes % (Manual) Eosinophils % (Manual) Nucleated RBC % Seg Neutrophils # Seg Neutrophils # Man Lymphocytes # (Manual) Monocytes # (Manual) Eosinophils # (Manual) PT INR APTT Fibrinogen POC ABG pH 7.284 L ABG pH POC ABG pCO2 67.8 H POC ABG pO2 ABG pO2 ABG HCO3 ABG O2 Saturation ABG Base Excess ABG Hemoglobin Oxyhemoglobin Sodium Potassium Chloride Carbon Dioxide BUN 63 H Creatinine 2.4 H Glucose 110 H POC Glucose Uric Acid Calcium Phosphorus Magnesium Iron TIBC AST ALT Total Creatine Kinase CK-MB (CK-2) Troponin T NT-Pro-B Natriuret Pep Total Protein Albumin Triglycerides HDL Cholesterol Folate Urine WBC (Auto) Urine Creatinine Urine Total Protein Vancomycin Trough 05/12/19 05/12/19 05/13/19 11:44 23:11 04:30 WBC RBC Hgb Hct MCV MCH MCHC RDW Plt Count Lymph % (Auto) [place] % (Auto) Eos % (Auto) Lymph # [place] # Eos # Seg Neutrophils % Seg Neuts % (Manual) Lymphocytes % (Manual) Monocytes % (Manual) Eosinophils % (Manual) Nucleated RBC % Seg Neutrophils # Seg Neutrophils # Man Lymphocytes # (Manual) Monocytes # (Manual) Eosinophils # (Manual) PT INR APTT Fibrinogen POC ABG pH ABG pH 7.288 L POC ABG pCO2 POC ABG pO2 ABG pO2 109.7 H ABG HCO3 30.9 H ABG O2 Saturation ABG Base Excess 3.2 H ABG Hemoglobin 9.6 L Oxyhemoglobin Sodium Potassium Chloride Carbon Dioxide BUN Creatinine Glucose POC Glucose 126 H 147 H Uric Acid Calcium Phosphorus Magnesium Iron TIBC AST ALT Total Creatine Kinase CK-MB (CK-2) Troponin T NT-Pro-B Natriuret Pep Total Protein Albumin Triglycerides HDL Cholesterol Folate Urine WBC (Auto) Urine Creatinine Urine Total Protein Vancomycin Trough 05/13/19 05/13/19 05/14/19 06:27 11:58 04:00 WBC RBC 3.16 L Hgb 9.3 L Hct 27.9 L MCV MCH MCHC RDW 17.1 H Plt Count Lymph % (Auto) [place] % (Auto) Eos % (Auto) Lymph # [place] # Eos # Seg Neutrophils % Seg Neuts % (Manual) Lymphocytes % (Manual) Monocytes % (Manual) Eosinophils % (Manual) Nucleated RBC % Seg Neutrophils # Seg Neutrophils # Man Lymphocytes # (Manual) Monocytes # (Manual) Eosinophils # (Manual) PT INR APTT Fibrinogen POC ABG pH ABG pH POC ABG pCO2 POC ABG pO2 ABG pO2 ABG HCO3 ABG O2 Saturation ABG Base Excess ABG Hemoglobin Oxyhemoglobin Sodium Potassium Chloride Carbon Dioxide BUN Creatinine Glucose POC Glucose 113 H 130 H Uric Acid Calcium Phosphorus Magnesium Iron TIBC AST ALT Total Creatine Kinase CK-MB (CK-2) Troponin T NT-Pro-B Natriuret Pep Total Protein Albumin Triglycerides HDL Cholesterol Folate Urine WBC (Auto) Urine Creatinine Urine Total Protein Vancomycin Trough 05/14/19 05/14/19 05/14/19 04:00 04:34 05:32 WBC RBC Hgb Hct MCV MCH MCHC RDW Plt Count Lymph % (Auto) [place] % (Auto) Eos % (Auto) Lymph # [place] # Eos # Seg Neutrophils % Seg Neuts % (Manual) Lymphocytes % (Manual) Monocytes % (Manual) Eosinophils % (Manual) Nucleated RBC % Seg Neutrophils # Seg Neutrophils # Man Lymphocytes # (Manual) Monocytes # (Manual) Eosinophils # (Manual) PT INR APTT Fibrinogen POC ABG pH 7.328 L ABG pH POC ABG pCO2 61.7 H POC ABG pO2 ABG pO2 ABG HCO3 ABG O2 Saturation ABG Base Excess ABG Hemoglobin Oxyhemoglobin Sodium 135 L D Potassium Chloride Carbon Dioxide BUN 57 H Creatinine 2.2 H Glucose 115 H POC Glucose 115 H Uric Acid Calcium 8.1 L Phosphorus Magnesium Iron TIBC AST ALT Total Creatine Kinase CK-MB (CK-2) Troponin T NT-Pro-B Natriuret Pep Total Protein Albumin Triglycerides HDL Cholesterol Folate Urine WBC (Auto) Urine Creatinine Urine Total Protein Vancomycin Trough 05/14/19 05/15/19 05/15/19 12:11 05:10 05:24 WBC RBC Hgb Hct MCV MCH MCHC RDW Plt Count Lymph % (Auto) [place] % (Auto) Eos % (Auto) Lymph # [place] # Eos # Seg Neutrophils % Seg Neuts % (Manual) Lymphocytes % (Manual) Monocytes % (Manual) Eosinophils % (Manual) Nucleated RBC % Seg Neutrophils # Seg Neutrophils # Man Lymphocytes # (Manual) Monocytes # (Manual) Eosinophils # (Manual) PT INR APTT Fibrinogen POC ABG pH ABG pH 7.342 L POC ABG pCO2 POC ABG pO2 ABG pO2 79.1 L ABG HCO3 28.2 H ABG O2 Saturation ABG Base Excess ABG Hemoglobin 7.0 L Oxyhemoglobin 94.4 L Sodium Potassium Chloride Carbon Dioxide BUN Creatinine Glucose POC Glucose 110 H 116 H Uric Acid Calcium Phosphorus Magnesium Iron TIBC AST ALT Total Creatine Kinase CK-MB (CK-2) Troponin T NT-Pro-B Natriuret Pep Total Protein Albumin Triglycerides HDL Cholesterol Folate Urine WBC (Auto) Urine Creatinine Urine Total Protein Vancomycin Trough 05/15/19 05/15/19 05/16/19 09:00 18:12 04:50 WBC RBC Hgb Hct MCV MCH MCHC RDW Plt Count Lymph % (Auto) [place] % (Auto) Eos % (Auto) Lymph # [place] # Eos # Seg Neutrophils % Seg Neuts % (Manual) Lymphocytes % (Manual) Monocytes % (Manual) Eosinophils % (Manual) Nucleated RBC % Seg Neutrophils # Seg Neutrophils # Man Lymphocytes # (Manual) Monocytes # (Manual) Eosinophils # (Manual) PT INR APTT Fibrinogen POC ABG pH ABG pH 7.250 L POC ABG pCO2 POC ABG pO2 ABG pO2 76.4 L ABG HCO3 ABG O2 Saturation 94.6 L ABG Base Excess -3.1 L ABG Hemoglobin 9.7 L Oxyhemoglobin 92.4 L Sodium Potassium Chloride Carbon Dioxide BUN Creatinine Glucose POC Glucose 110 H Uric Acid Calcium Phosphorus Magnesium Iron TIBC AST ALT Total Creatine Kinase CK-MB (CK-2) Troponin T NT-Pro-B Natriuret Pep Total Protein Albumin Triglycerides HDL Cholesterol Folate Urine WBC (Auto) Urine Creatinine Urine Total Protein Vancomycin Trough 20.5 H 05/16/19 05/16/19 05/17/19 05:50 05:50 04:20 WBC RBC 3.36 L 3.44 L Hgb 9.4 L 9.3 L Hct 29.1 L 29.7 L MCV MCH 27 L MCHC 31 L RDW 17.6 H 17.6 H Plt Count Lymph % (Auto) [place] % (Auto) Eos % (Auto) Lymph # [place] # Eos # Seg Neutrophils % Seg Neuts % (Manual) 77.0 H Lymphocytes % (Manual) 5.0 L Monocytes % (Manual) Eosinophils % (Manual) 10.0 H Nucleated RBC % Seg Neutrophils # Seg Neutrophils # Man Lymphocytes # (Manual) 0.5 L Monocytes # (Manual) Eosinophils # (Manual) 0.9 H PT INR APTT Fibrinogen POC ABG pH ABG pH POC ABG pCO2 POC ABG pO2 ABG pO2 ABG HCO3 ABG O2 Saturation ABG Base Excess ABG Hemoglobin Oxyhemoglobin Sodium Potassium Chloride Carbon Dioxide BUN 83 H Creatinine 4.4 H D Glucose 118 H POC Glucose Uric Acid Calcium Phosphorus Magnesium Iron TIBC AST ALT Total Creatine Kinase CK-MB (CK-2) Troponin T NT-Pro-B Natriuret Pep Total Protein Albumin Triglycerides HDL Cholesterol Folate Urine WBC (Auto) Urine Creatinine Urine Total Protein Vancomycin Trough 05/17/19 05/17/19 05/18/19 04:30 Unknown 01:50 WBC RBC 3.49 L Hgb 9.4 L Hct 30.0 L MCV MCH 27 L MCHC 31 L RDW 17.8 H Plt Count Lymph % (Auto) 7.9 L [place] % (Auto) 15.4 H Eos % (Auto) 6.3 H Lymph # 0.7 L [place] # 1.4 H Eos # 0.6 H Seg Neutrophils % 70.2 H Seg Neuts % (Manual) Lymphocytes % (Manual) Monocytes % (Manual) Eosinophils % (Manual) Nucleated RBC % Seg Neutrophils # Seg Neutrophils # Man Lymphocytes # (Manual) Monocytes # (Manual) Eosinophils # (Manual) PT INR APTT Fibrinogen POC ABG pH ABG pH 7.272 L POC ABG pCO2 POC ABG pO2 ABG pO2 75.7 L ABG HCO3 ABG O2 Saturation 93.8 L ABG Base Excess -3.0 L ABG Hemoglobin 7.8 L Oxyhemoglobin 91.6 L Sodium Potassium 5.2 H Chloride Carbon Dioxide BUN 96 H Creatinine 5.7 H Glucose 112 H POC Glucose Uric Acid Calcium Phosphorus Magnesium Iron TIBC AST ALT Total Creatine Kinase CK-MB (CK-2) Troponin T NT-Pro-B Natriuret Pep Total Protein Albumin Triglycerides 173 H HDL Cholesterol Folate Urine WBC (Auto) Urine Creatinine Urine Total Protein Vancomycin Trough 05/18/19 05/18/19 05/18/19 01:50 04:41 05:24 WBC RBC Hgb Hct MCV MCH MCHC RDW Plt Count Lymph % (Auto) [place] % (Auto) Eos % (Auto) Lymph # [place] # Eos # Seg Neutrophils % Seg Neuts % (Manual) Lymphocytes % (Manual) Monocytes % (Manual) Eosinophils % (Manual) Nucleated RBC % Seg Neutrophils # Seg Neutrophils # Man Lymphocytes # (Manual) Monocytes # (Manual) Eosinophils # (Manual) PT INR APTT Fibrinogen POC ABG pH 7.260 L ABG pH POC ABG pCO2 54.9 H POC ABG pO2 ABG pO2 ABG HCO3 ABG O2 Saturation ABG Base Excess ABG Hemoglobin Oxyhemoglobin Sodium Potassium 5.6 H Chloride Carbon Dioxide BUN 104 H Creatinine 6.6 H Glucose 107 H POC Glucose 106 H Uric Acid Calcium Phosphorus Magnesium Iron TIBC AST ALT Total Creatine Kinase CK-MB (CK-2) Troponin T NT-Pro-B Natriuret Pep Total Protein Albumin Triglycerides HDL Cholesterol Folate Urine WBC (Auto) Urine Creatinine Urine Total Protein Vancomycin Trough 05/18/19 05/18/19 05/19/19 11:34 23:26 04:06 WBC RBC 3.22 L Hgb 8.8 L Hct 27.3 L MCV MCH 27 L MCHC RDW 17.5 H Plt Count Lymph % (Auto) [place] % (Auto) Eos % (Auto) Lymph # [place] # Eos # Seg Neutrophils % Seg Neuts % (Manual) 74.0 H Lymphocytes % (Manual) 4.0 L Monocytes % (Manual) 11.0 H Eosinophils % (Manual) 7.0 H Nucleated RBC % 1.0 H Seg Neutrophils # Seg Neutrophils # Man Lymphocytes # (Manual) 0.3 L Monocytes # (Manual) 0.9 H Eosinophils # (Manual) 0.6 H PT INR APTT Fibrinogen POC ABG pH ABG pH POC ABG pCO2 POC ABG pO2 ABG pO2 ABG HCO3 ABG O2 Saturation ABG Base Excess ABG Hemoglobin Oxyhemoglobin Sodium Potassium Chloride Carbon Dioxide BUN Creatinine Glucose POC Glucose 152 H 112 H Uric Acid Calcium Phosphorus Magnesium Iron TIBC AST ALT Total Creatine Kinase CK-MB (CK-2) Troponin T NT-Pro-B Natriuret Pep Total Protein Albumin Triglycerides HDL Cholesterol Folate Urine WBC (Auto) Urine Creatinine Urine Total Protein Vancomycin Trough 05/19/19 05/19/19 05/20/19 04:06 06:00 04:00 WBC RBC 3.40 L Hgb 9.2 L Hct 28.6 L MCV MCH 27 L MCHC RDW 17.6 H Plt Count Lymph % (Auto) [place] % (Auto) Eos % (Auto) Lymph # [place] # Eos # Seg Neutrophils % Seg Neuts % (Manual) Lymphocytes % (Manual) 11.0 L Monocytes % (Manual) Eosinophils % (Manual) 14.0 H Nucleated RBC % Seg Neutrophils # Seg Neutrophils # Man Lymphocytes # (Manual) 1.1 L Monocytes # (Manual) Eosinophils # (Manual) 1.4 H PT INR APTT Fibrinogen POC ABG pH ABG pH 7.315 L POC ABG pCO2 POC ABG pO2 ABG pO2 ABG HCO3 ABG O2 Saturation ABG Base Excess ABG Hemoglobin 6.7 L Oxyhemoglobin 94.1 L Sodium Potassium 5.2 H Chloride Carbon Dioxide 21 L BUN 110 H Creatinine 7.2 H Glucose POC Glucose Uric Acid Calcium 8.3 L Phosphorus Magnesium Iron TIBC AST ALT Total Creatine Kinase CK-MB (CK-2) Troponin T NT-Pro-B Natriuret Pep Total Protein Albumin Triglycerides HDL Cholesterol Folate Urine WBC (Auto) Urine Creatinine Urine Total Protein Vancomycin Trough 05/20/19 05/20/19 05/20/19 04:00 05:48 12:00 WBC RBC Hgb Hct MCV MCH MCHC RDW Plt Count Lymph % (Auto) [place] % (Auto) Eos % (Auto) Lymph # [place] # Eos # Seg Neutrophils % Seg Neuts % (Manual) Lymphocytes % (Manual) Monocytes % (Manual) Eosinophils % (Manual) Nucleated RBC % Seg Neutrophils # Seg Neutrophils # Man Lymphocytes # (Manual) Monocytes # (Manual) Eosinophils # (Manual) PT INR APTT Fibrinogen POC ABG pH ABG pH 7.281 L POC ABG pCO2 POC ABG pO2 ABG pO2 78.7 L ABG HCO3 ABG O2 Saturation 94.5 L ABG Base Excess -3.0 L ABG Hemoglobin 9.9 L Oxyhemoglobin 92.5 L Sodium 136 L Potassium 5.7 H Chloride 96.3 L Carbon Dioxide BUN 125 H Creatinine 8.3 H Glucose 106 H POC Glucose Uric Acid Calcium Phosphorus Magnesium Iron TIBC AST ALT Total Creatine Kinase CK-MB (CK-2) Troponin T NT-Pro-B Natriuret Pep Total Protein Albumin Triglycerides HDL Cholesterol Folate Urine WBC (Auto) 26.0 H Urine Creatinine Urine Total Protein Vancomycin Trough 05/21/19 05/21/19 05/21/19 04:33 05:20 Unknown WBC RBC 3.38 L Hgb 9.1 L Hct 28.5 L MCV MCH 27 L MCHC RDW 17.4 H Plt Count Lymph % (Auto) [place] % (Auto) Eos % (Auto) Lymph # [place] # Eos # Seg Neutrophils % Seg Neuts % (Manual) 71.0 H Lymphocytes % (Manual) 1.0 L Monocytes % (Manual) 11.0 H Eosinophils % (Manual) 6.0 H Nucleated RBC % Seg Neutrophils # Seg Neutrophils # Man Lymphocytes # (Manual) 0.1 L Monocytes # (Manual) 1.0 H Eosinophils # (Manual) 0.6 H PT INR APTT Fibrinogen POC ABG pH 7.315 L ABG pH POC ABG pCO2 57.8 H POC ABG pO2 68 L ABG pO2 ABG HCO3 ABG O2 Saturation ABG Base Excess ABG Hemoglobin Oxyhemoglobin Sodium Potassium Chloride 96.3 L Carbon Dioxide BUN 102 H Creatinine 7.0 H Glucose 103 H POC Glucose Uric Acid Calcium Phosphorus Magnesium Iron TIBC AST ALT Total Creatine Kinase CK-MB (CK-2) Troponin T NT-Pro-B Natriuret Pep Total Protein Albumin Triglycerides HDL Cholesterol Folate Urine WBC (Auto) Urine Creatinine Urine Total Protein Vancomycin Trough 05/22/19 05/22/19 05/22/19 03:54 06:25 06:25 WBC RBC 3.22 L Hgb 8.6 L Hct 27.0 L MCV MCH 27 L MCHC RDW 17.5 H Plt Count Lymph % (Auto) [place] % (Auto) 16.2 H Eos % (Auto) 10.8 H Lymph # [place] # 1.3 H Eos # 0.9 H Seg Neutrophils % Seg Neuts % (Manual) Lymphocytes % (Manual) 10.0 L Monocytes % (Manual) 13.0 H Eosinophils % (Manual) 8.0 H Nucleated RBC % Seg Neutrophils # Seg Neutrophils # Man Lymphocytes # (Manual) 0.9 L Monocytes # (Manual) 1.1 H Eosinophils # (Manual) 0.7 H PT INR APTT Fibrinogen POC ABG pH 7.313 L ABG pH POC ABG pCO2 55.0 H POC ABG pO2 ABG pO2 ABG HCO3 ABG O2 Saturation ABG Base Excess ABG Hemoglobin Oxyhemoglobin Sodium 135 L Potassium Chloride 94.3 L Carbon Dioxide BUN 117 H Creatinine 7.8 H Glucose POC Glucose Uric Acid Calcium 8.2 L Phosphorus Magnesium Iron TIBC AST ALT Total Creatine Kinase CK-MB (CK-2) Troponin T NT-Pro-B Natriuret Pep Total Protein Albumin Triglycerides HDL Cholesterol Folate Urine WBC (Auto) Urine Creatinine Urine Total Protein Vancomycin Trough 05/23/19 05/24/19 05/24/19 05:21 05:00 05:00 WBC RBC 3.18 L Hgb 8.5 L Hct 26.7 L MCV MCH 27 L MCHC RDW 17.9 H Plt Count Lymph % (Auto) [place] % (Auto) Eos % (Auto) Lymph # [place] # Eos # Seg Neutrophils % Seg Neuts % (Manual) Lymphocytes % (Manual) Monocytes % (Manual) Eosinophils % (Manual) Nucleated RBC % Seg Neutrophils # Seg Neutrophils # Man Lymphocytes # (Manual) Monocytes # (Manual) Eosinophils # (Manual) PT INR APTT Fibrinogen POC ABG pH ABG pH POC ABG pCO2 49.7 H POC ABG pO2 73 L ABG pO2 ABG HCO3 ABG O2 Saturation ABG Base Excess ABG Hemoglobin Oxyhemoglobin Sodium Potassium Chloride 95.7 L Carbon Dioxide BUN 97 H Creatinine 6.5 H Glucose POC Glucose Uric Acid Calcium 8.0 L Phosphorus Magnesium Iron TIBC AST ALT Total Creatine Kinase CK-MB (CK-2) Troponin T NT-Pro-B Natriuret Pep Total Protein Albumin Triglycerides HDL Cholesterol Folate Urine WBC (Auto) Urine Creatinine Urine Total Protein Vancomycin Trough 05/24/19 05/25/19 05/25/19 06:17 04:22 15:45 WBC RBC 2.98 L Hgb 8.1 L Hct 24.9 L MCV MCH 27 L MCHC RDW 17.8 H Plt Count Lymph % (Auto) [place] % (Auto) Eos % (Auto) Lymph # [place] # Eos # Seg Neutrophils % Seg Neuts % (Manual) Lymphocytes % (Manual) Monocytes % (Manual) Eosinophils % (Manual) Nucleated RBC % Seg Neutrophils # Seg Neutrophils # Man Lymphocytes # (Manual) Monocytes # (Manual) Eosinophils # (Manual) PT INR APTT Fibrinogen POC ABG pH 7.330 L 7.313 L ABG pH POC ABG pCO2 52.5 H 51.1 H POC ABG pO2 77 L ABG pO2 ABG HCO3 ABG O2 Saturation ABG Base Excess ABG Hemoglobin Oxyhemoglobin Sodium Potassium Chloride Carbon Dioxide BUN Creatinine Glucose POC Glucose Uric Acid Calcium Phosphorus Magnesium Iron TIBC AST ALT Total Creatine Kinase CK-MB (CK-2) Troponin T NT-Pro-B Natriuret Pep Total Protein Albumin Triglycerides HDL Cholesterol Folate Urine WBC (Auto) Urine Creatinine Urine Total Protein Vancomycin Trough 05/25/19 05/26/19 05/26/19 15:45 04:13 05:00 WBC RBC 3.10 L Hgb 8.4 L Hct 26.0 L MCV MCH 27 L MCHC RDW 17.4 H Plt Count Lymph % (Auto) [place] % (Auto) Eos % (Auto) Lymph # [place] # Eos # Seg Neutrophils % Seg Neuts % (Manual) Lymphocytes % (Manual) Monocytes % (Manual) Eosinophils % (Manual) Nucleated RBC % Seg Neutrophils # Seg Neutrophils # Man Lymphocytes # (Manual) Monocytes # (Manual) Eosinophils # (Manual) PT INR APTT Fibrinogen POC ABG pH 7.295 L ABG pH POC ABG pCO2 56.5 H POC ABG pO2 63 L ABG pO2 ABG HCO3 ABG O2 Saturation ABG Base Excess ABG Hemoglobin Oxyhemoglobin Sodium 136 L Potassium Chloride 96.8 L Carbon Dioxide BUN 83 H Creatinine 5.9 H Glucose POC Glucose Uric Acid Calcium 7.6 L Phosphorus Magnesium Iron TIBC AST ALT Total Creatine Kinase CK-MB (CK-2) Troponin T NT-Pro-B Natriuret Pep Total Protein Albumin Triglycerides HDL Cholesterol Folate Urine WBC (Auto) Urine Creatinine Urine Total Protein Vancomycin Trough 05/26/19 05/27/19 05/28/19 05:00 04:48 04:47 WBC RBC Hgb Hct MCV MCH MCHC RDW Plt Count Lymph % (Auto) [place] % (Auto) Eos % (Auto) Lymph # [place] # Eos # Seg Neutrophils % Seg Neuts % (Manual) Lymphocytes % (Manual) Monocytes % (Manual) Eosinophils % (Manual) Nucleated RBC % Seg Neutrophils # Seg Neutrophils # Man Lymphocytes # (Manual) Monocytes # (Manual) Eosinophils # (Manual) PT INR APTT Fibrinogen POC ABG pH 7.323 L ABG pH 7.284 L POC ABG pCO2 56.2 H POC ABG pO2 ABG pO2 71.6 L ABG HCO3 ABG O2 Saturation 92.0 L ABG Base Excess ABG Hemoglobin 7.7 L Oxyhemoglobin 89.9 L Sodium 136 L Potassium Chloride 95.3 L Carbon Dioxide BUN 96 H Creatinine 6.5 H Glucose 108 H POC Glucose Uric Acid Calcium 7.6 L Phosphorus Magnesium Iron TIBC AST ALT Total Creatine Kinase CK-MB (CK-2) Troponin T NT-Pro-B Natriuret Pep Total Protein Albumin Triglycerides HDL Cholesterol Folate Urine WBC (Auto) Urine Creatinine Urine Total Protein Vancomycin Trough 05/28/19 05/29/19 05/29/19 12:30 12:47 23:44 WBC RBC Hgb Hct MCV MCH MCHC RDW Plt Count Lymph % (Auto) [place] % (Auto) Eos % (Auto) Lymph # [place] # Eos # Seg Neutrophils % Seg Neuts % (Manual) Lymphocytes % (Manual) Monocytes % (Manual) Eosinophils % (Manual) Nucleated RBC % Seg Neutrophils # Seg Neutrophils # Man Lymphocytes # (Manual) Monocytes # (Manual) Eosinophils # (Manual) PT INR APTT Fibrinogen POC ABG pH ABG pH POC ABG pCO2 POC ABG pO2 ABG pO2 ABG HCO3 ABG O2 Saturation ABG Base Excess ABG Hemoglobin Oxyhemoglobin Sodium 135 L Potassium Chloride 95.3 L Carbon Dioxide BUN 82 H Creatinine 6.0 H Glucose POC Glucose 136 H 159 H Uric Acid Calcium 7.5 L Phosphorus Magnesium Iron TIBC AST ALT Total Creatine Kinase CK-MB (CK-2) Troponin T NT-Pro-B Natriuret Pep Total Protein Albumin Triglycerides HDL Cholesterol Folate Urine WBC (Auto) Urine Creatinine Urine Total Protein Vancomycin Trough 05/30/19 05/30/19 05/30/19 04:30 05:38 12:00 WBC RBC 3.01 L Hgb 8.2 L Hct 25.3 L MCV MCH 27 L MCHC RDW 17.5 H Plt Count Lymph % (Auto) [place] % (Auto) Eos % (Auto) Lymph # [place] # Eos # Seg Neutrophils % Seg Neuts % (Manual) 80.0 H Lymphocytes % (Manual) 10.0 L Monocytes % (Manual) Eosinophils % (Manual) Nucleated RBC % Seg Neutrophils # Seg Neutrophils # Man 8.0 H Lymphocytes # (Manual) 1.0 L Monocytes # (Manual) Eosinophils # (Manual) PT INR APTT Fibrinogen POC ABG pH ABG pH POC ABG pCO2 POC ABG pO2 73 L ABG pO2 ABG HCO3 ABG O2 Saturation ABG Base Excess ABG Hemoglobin Oxyhemoglobin Sodium Potassium Chloride Carbon Dioxide BUN Creatinine Glucose POC Glucose 166 H Uric Acid Calcium Phosphorus Magnesium Iron TIBC AST ALT Total Creatine Kinase CK-MB (CK-2) Troponin T NT-Pro-B Natriuret Pep Total Protein Albumin Triglycerides HDL Cholesterol Folate Urine WBC (Auto) Urine Creatinine Urine Total Protein Vancomycin Trough 05/30/19 05/31/19 05/31/19 23:45 04:07 13:04 WBC 14.3 H RBC 2.88 L Hgb 7.7 L Hct 23.9 L MCV 83 L MCH 27 L MCHC RDW 17.8 H Plt Count Lymph % (Auto) Tift % (Auto) Eos % (Auto) Lymph # Tift # Eos # Seg Neutrophils % Seg Neuts % (Manual) 83.0 H Lymphocytes % (Manual) 11.0 L Monocytes % (Manual) Eosinophils % (Manual) Nucleated RBC % Seg Neutrophils # Seg Neutrophils # Man 11.9 H Lymphocytes # (Manual) Monocytes # (Manual) 0.9 H Eosinophils # (Manual) PT INR APTT Fibrinogen POC ABG pH ABG pH POC ABG pCO2 47.4 H POC ABG pO2 ABG pO2 ABG HCO3 ABG O2 Saturation ABG Base Excess ABG Hemoglobin Oxyhemoglobin Sodium Potassium Chloride Carbon Dioxide BUN Creatinine Glucose POC Glucose 209 H Uric Acid Calcium Phosphorus Magnesium Iron TIBC AST ALT Total Creatine Kinase CK-MB (CK-2) Troponin T NT-Pro-B Natriuret Pep Total Protein Albumin Triglycerides HDL Cholesterol Folate Urine WBC (Auto) Urine Creatinine Urine Total Protein Vancomycin Trough 05/31/19 05/31/19 06/01/19 13:04 16:42 00:15 WBC RBC Hgb Hct MCV MCH MCHC RDW Plt Count Lymph % (Auto) Tift % (Auto) Eos % (Auto) Lymph # Tift # Eos # Seg Neutrophils % Seg Neuts % (Manual) Lymphocytes % (Manual) Monocytes % (Manual) Eosinophils % (Manual) Nucleated RBC % Seg Neutrophils # Seg Neutrophils # Man Lymphocytes # (Manual) Monocytes # (Manual) Eosinophils # (Manual) PT INR APTT Fibrinogen POC ABG pH ABG pH POC ABG pCO2 POC ABG pO2 ABG pO2 ABG HCO3 ABG O2 Saturation ABG Base Excess ABG Hemoglobin Oxyhemoglobin Sodium 129 L Potassium Chloride 88.6 L Carbon Dioxide 19 L BUN 117 H Creatinine 6.7 H Glucose 205 H POC Glucose 228 H 223 H Uric Acid Calcium 7.4 L Phosphorus 7.40 H Magnesium Iron TIBC AST 58 H ALT 149 H Total Creatine Kinase CK-MB (CK-2) Troponin T NT-Pro-B Natriuret Pep Total Protein 6.0 L Albumin 2.5 L Triglycerides HDL Cholesterol Folate Urine WBC (Auto) Urine Creatinine Urine Total Protein Vancomycin Trough 06/01/19 06/01/19 06/01/19 04:33 05:27 12:31 WBC RBC Hgb Hct MCV MCH MCHC RDW Plt Count Lymph % (Auto) [place] % (Auto) Eos % (Auto) Lymph # Tift # Eos # Seg Neutrophils % Seg Neuts % (Manual) Lymphocytes % (Manual) Monocytes % (Manual) Eosinophils % (Manual) Nucleated RBC % Seg Neutrophils # Seg Neutrophils # Man Lymphocytes # (Manual) Monocytes # (Manual) Eosinophils # (Manual) PT INR APTT Fibrinogen POC ABG pH ABG pH POC ABG pCO2 POC ABG pO2 ABG pO2 56.9 L ABG HCO3 ABG O2 Saturation 85.9 L ABG Base Excess ABG Hemoglobin 8.1 L Oxyhemoglobin 83.6 L Sodium Potassium Chloride Carbon Dioxide BUN Creatinine Glucose POC Glucose 183 H 217 H Uric Acid Calcium Phosphorus Magnesium Iron TIBC AST ALT Total Creatine Kinase CK-MB (CK-2) Troponin T NT-Pro-B Natriuret Pep Total Protein Albumin Triglycerides HDL Cholesterol Folate Urine WBC (Auto) Urine Creatinine Urine Total Protein Vancomycin Trough 06/01/19 06/02/19 06/02/19 18:20 00:00 05:33 WBC RBC Hgb Hct MCV MCH MCHC RDW Plt Count Lymph % (Auto) [place] % (Auto) Eos % (Auto) Lymph # T[place] # Eos # Seg Neutrophils % Seg Neuts % (Manual) Lymphocytes % (Manual) Monocytes % (Manual) Eosinophils % (Manual) Nucleated RBC % Seg Neutrophils # Seg Neutrophils # Man Lymphocytes # (Manual) Monocytes # (Manual) Eosinophils # (Manual) PT INR APTT Fibrinogen POC ABG pH ABG pH POC ABG pCO2 POC ABG pO2 ABG pO2 ABG HCO3 ABG O2 Saturation ABG Base Excess ABG Hemoglobin Oxyhemoglobin Sodium Potassium Chloride Carbon Dioxide BUN Creatinine Glucose POC Glucose 265 H 279 H 259 H Uric Acid Calcium Phosphorus Magnesium Iron TIBC AST ALT Total Creatine Kinase CK-MB (CK-2) Troponin T NT-Pro-B Natriuret Pep Total Protein Albumin Triglycerides HDL Cholesterol Folate Urine WBC (Auto) Urine Creatinine Urine Total Protein Vancomycin Trough 06/02/19 06/02/19 06/02/19 11:06 11:06 11:42 WBC 13.1 H RBC 2.92 L Hgb 7.9 L Hct 24.4 L MCV MCH 27 L MCHC RDW 17.4 H Plt Count Lymph % (Auto) [place] % (Auto) Eos % (Auto) Lymph # T[place] # Eos # Seg Neutrophils % Seg Neuts % (Manual) 78.0 H Lymphocytes % (Manual) 12.0 L Monocytes % (Manual) 10.0 H Eosinophils % (Manual) Nucleated RBC % Seg Neutrophils # Seg Neutrophils # Man 10.2 H Lymphocytes # (Manual) Monocytes # (Manual) 1.3 H Eosinophils # (Manual) PT INR APTT Fibrinogen POC ABG pH ABG pH POC ABG pCO2 POC ABG pO2 ABG pO2 ABG HCO3 ABG O2 Saturation ABG Base Excess ABG Hemoglobin Oxyhemoglobin Sodium 135 L Potassium Chloride 94.7 L Carbon Dioxide 21 L BUN 107 H Creatinine 4.5 H Glucose 286 H POC Glucose 263 H Uric Acid Calcium 7.9 L Phosphorus 6.30 H Magnesium Iron TIBC AST ALT 104 H Total Creatine Kinase CK-MB (CK-2) Troponin T NT-Pro-B Natriuret Pep Total Protein 6.0 L Albumin 2.7 L Triglycerides HDL Cholesterol Folate Urine WBC (Auto) Urine Creatinine Urine Total Protein Vancomycin Trough 06/02/19 06/02/19 06/03/19 18:17 23:55 05:30 WBC RBC Hgb Hct MCV MCH MCHC RDW Plt Count Lymph % (Auto) [place] % (Auto) Eos % (Auto) Lymph # [place] # Eos # Seg Neutrophils % Seg Neuts % (Manual) Lymphocytes % (Manual) Monocytes % (Manual) Eosinophils % (Manual) Nucleated RBC % Seg Neutrophils # Seg Neutrophils # Man Lymphocytes # (Manual) Monocytes # (Manual) Eosinophils # (Manual) PT INR APTT Fibrinogen POC ABG pH ABG pH POC ABG pCO2 POC ABG pO2 ABG pO2 ABG HCO3 ABG O2 Saturation ABG Base Excess ABG Hemoglobin Oxyhemoglobin Sodium Potassium Chloride 95.1 L Carbon Dioxide 21 L BUN 119 H Creatinine 4.1 H Glucose 330 H POC Glucose 276 H 244 H Uric Acid Calcium 8.1 L Phosphorus Magnesium Iron TIBC AST ALT 98 H Total Creatine Kinase CK-MB (CK-2) Troponin T NT-Pro-B Natriuret Pep Total Protein 5.8 L Albumin 2.8 L Triglycerides HDL Cholesterol Folate Urine WBC (Auto) Urine Creatinine Urine Total Protein Vancomycin Trough 06/03/19 06/03/19 06/03/19 05:30 06:04 09:42 WBC 12.8 H RBC 3.01 L Hgb 8.2 L Hct 25.4 L MCV MCH 27 L MCHC RDW 17.5 H Plt Count Lymph % (Auto) [place] % (Auto) Eos % (Auto) Lymph # [place] # Eos # Seg Neutrophils % Seg Neuts % (Manual) 78.0 H Lymphocytes % (Manual) 10.0 L Monocytes % (Manual) 12.0 H Eosinophils % (Manual) Nucleated RBC % Seg Neutrophils # Seg Neutrophils # Man 10.0 H Lymphocytes # (Manual) Monocytes # (Manual) 1.5 H Eosinophils # (Manual) PT INR APTT Fibrinogen POC ABG pH ABG pH POC ABG pCO2 POC ABG pO2 ABG pO2 ABG HCO3 ABG O2 Saturation ABG Base Excess ABG Hemoglobin Oxyhemoglobin Sodium Potassium Chloride Carbon Dioxide BUN 106 H Creatinine Glucose POC Glucose 254 H Uric Acid Calcium Phosphorus Magnesium Iron TIBC AST ALT Total Creatine Kinase CK-MB (CK-2) Troponin T NT-Pro-B Natriuret Pep Total Protein Albumin Triglycerides HDL Cholesterol Folate Urine WBC (Auto) Urine Creatinine Urine Total Protein Vancomycin Trough 06/03/19 06/03/19 06/03/19 12:52 17:25 23:37 WBC RBC Hgb Hct MCV MCH MCHC RDW Plt Count Lymph % (Auto) [place] % (Auto) Eos % (Auto) Lymph # [place] # Eos # Seg Neutrophils % Seg Neuts % (Manual) Lymphocytes % (Manual) Monocytes % (Manual) Eosinophils % (Manual) Nucleated RBC % Seg Neutrophils # Seg Neutrophils # Man Lymphocytes # (Manual) Monocytes # (Manual) Eosinophils # (Manual) PT INR APTT Fibrinogen POC ABG pH ABG pH POC ABG pCO2 POC ABG pO2 ABG pO2 ABG HCO3 ABG O2 Saturation ABG Base Excess ABG Hemoglobin Oxyhemoglobin Sodium Potassium Chloride Carbon Dioxide BUN Creatinine Glucose POC Glucose 274 H 285 H 310 H Uric Acid Calcium Phosphorus Magnesium Iron TIBC AST ALT Total Creatine Kinase CK-MB (CK-2) Troponin T NT-Pro-B Natriuret Pep Total Protein Albumin Triglycerides HDL Cholesterol Folate Urine WBC (Auto) Urine Creatinine Urine Total Protein Vancomycin Trough 06/04/19 06/04/19 06/04/19 04:57 05:03 11:50 WBC RBC Hgb Hct MCV MCH MCHC RDW Plt Count Lymph % (Auto) [place] % (Auto) Eos % (Auto) Lymph # [place] # Eos # Seg Neutrophils % Seg Neuts % (Manual) Lymphocytes % (Manual) Monocytes % (Manual) Eosinophils % (Manual) Nucleated RBC % Seg Neutrophils # Seg Neutrophils # Man Lymphocytes # (Manual) Monocytes # (Manual) Eosinophils # (Manual) PT INR APTT Fibrinogen POC ABG pH 7.488 H ABG pH POC ABG pCO2 POC ABG pO2 ABG pO2 ABG HCO3 ABG O2 Saturation ABG Base Excess ABG Hemoglobin Oxyhemoglobin Sodium Potassium Chloride Carbon Dioxide BUN Creatinine Glucose POC Glucose 275 H 279 H Uric Acid Calcium Phosphorus Magnesium Iron TIBC AST ALT Total Creatine Kinase CK-MB (CK-2) Troponin T NT-Pro-B Natriuret Pep Total Protein Albumin Triglycerides HDL Cholesterol Folate Urine WBC (Auto) Urine Creatinine Urine Total Protein Vancomycin Trough 06/04/19 06/04/19 06/04/19 18:32 22:03 23:55 WBC RBC Hgb Hct MCV MCH MCHC RDW Plt Count Lymph % (Auto) [place] % (Auto) Eos % (Auto) Lymph # [place] # Eos # Seg Neutrophils % Seg Neuts % (Manual) Lymphocytes % (Manual) Monocytes % (Manual) Eosinophils % (Manual) Nucleated RBC % Seg Neutrophils # Seg Neutrophils # Man Lymphocytes # (Manual) Monocytes # (Manual) Eosinophils # (Manual) PT INR APTT Fibrinogen POC ABG pH ABG pH POC ABG pCO2 POC ABG pO2 ABG pO2 ABG HCO3 ABG O2 Saturation ABG Base Excess ABG Hemoglobin Oxyhemoglobin Sodium Potassium Chloride Carbon Dioxide BUN Creatinine Glucose POC Glucose 267 H 307 H 292 H Uric Acid Calcium Phosphorus Magnesium Iron TIBC AST ALT Total Creatine Kinase CK-MB (CK-2) Troponin T NT-Pro-B Natriuret Pep Total Protein Albumin Triglycerides HDL Cholesterol Folate Urine WBC (Auto) Urine Creatinine Urine Total Protein Vancomycin Trough 06/05/19 06/05/19 06/05/19 03:52 06:41 12:29 WBC RBC Hgb Hct MCV MCH MCHC RDW Plt Count Lymph % (Auto) [place] % (Auto) Eos % (Auto) Lymph # [place] # Eos # Seg Neutrophils % Seg Neuts % (Manual) Lymphocytes % (Manual) Monocytes % (Manual) Eosinophils % (Manual) Nucleated RBC % Seg Neutrophils # Seg Neutrophils # Man Lymphocytes # (Manual) Monocytes # (Manual) Eosinophils # (Manual) PT INR APTT Fibrinogen POC ABG pH 7.462 H ABG pH POC ABG pCO2 POC ABG pO2 ABG pO2 ABG HCO3 ABG O2 Saturation ABG Base Excess ABG Hemoglobin Oxyhemoglobin Sodium Potassium Chloride Carbon Dioxide BUN Creatinine Glucose POC Glucose 369 H 265 H Uric Acid Calcium Phosphorus Magnesium Iron TIBC AST ALT Total Creatine Kinase CK-MB (CK-2) Troponin T NT-Pro-B Natriuret Pep Total Protein Albumin Triglycerides HDL Cholesterol Folate Urine WBC (Auto) Urine Creatinine Urine Total Protein Vancomycin Trough 06/05/19 06/05/19 06/05/19 18:20 21:42 23:21 WBC RBC Hgb Hct MCV MCH MCHC RDW Plt Count Lymph % (Auto) [place] % (Auto) Eos % (Auto) Lymph # [place] # Eos # Seg Neutrophils % Seg Neuts % (Manual) Lymphocytes % (Manual) Monocytes % (Manual) Eosinophils % (Manual) Nucleated RBC % Seg Neutrophils # Seg Neutrophils # Man Lymphocytes # (Manual) Monocytes # (Manual) Eosinophils # (Manual) PT INR APTT Fibrinogen POC ABG pH ABG pH POC ABG pCO2 POC ABG pO2 ABG pO2 ABG HCO3 ABG O2 Saturation ABG Base Excess ABG Hemoglobin Oxyhemoglobin Sodium Potassium Chloride Carbon Dioxide BUN Creatinine Glucose POC Glucose 249 H 246 H 274 H Uric Acid Calcium Phosphorus Magnesium Iron TIBC AST ALT Total Creatine Kinase CK-MB (CK-2) Troponin T NT-Pro-B Natriuret Pep Total Protein Albumin Triglycerides HDL Cholesterol Folate Urine WBC (Auto) Urine Creatinine Urine Total Protein Vancomycin Trough 06/06/19 06/06/19 06/06/19 04:00 05:49 11:34 WBC 18.1 H RBC 3.53 L Hgb 9.5 L Hct 30.3 L MCV MCH 27 L MCHC 31 L RDW 19.5 H Plt Count Lymph % (Auto) [place] % (Auto) Eos % (Auto) Lymph # [place] # Eos # Seg Neutrophils % Seg Neuts % (Manual) 87.0 H Lymphocytes % (Manual) 3.0 L Monocytes % (Manual) 8.0 H Eosinophils % (Manual) Nucleated RBC % Seg Neutrophils # Seg Neutrophils # Man 15.7 H Lymphocytes # (Manual) 0.5 L Monocytes # (Manual) 1.4 H Eosinophils # (Manual) PT INR APTT Fibrinogen POC ABG pH ABG pH 7.472 H POC ABG pCO2 POC ABG pO2 ABG pO2 76.4 L ABG HCO3 28.1 H ABG O2 Saturation ABG Base Excess 4.3 H ABG Hemoglobin 12.5 L Oxyhemoglobin 93.8 L Sodium Potassium Chloride Carbon Dioxide BUN Creatinine Glucose POC Glucose 340 H Uric Acid Calcium Phosphorus Magnesium Iron TIBC AST ALT Total Creatine Kinase CK-MB (CK-2) Troponin T NT-Pro-B Natriuret Pep Total Protein Albumin Triglycerides HDL Cholesterol Folate Urine WBC (Auto) Urine Creatinine Urine Total Protein Vancomycin Trough 06/06/19 06/06/19 06/06/19 11:34 12:11 18:10 WBC RBC Hgb Hct MCV MCH MCHC RDW Plt Count Lymph % (Auto) [place] % (Auto) Eos % (Auto) Lymph # [place] # Eos # Seg Neutrophils % Seg Neuts % (Manual) Lymphocytes % (Manual) Monocytes % (Manual) Eosinophils % (Manual) Nucleated RBC % Seg Neutrophils # Seg Neutrophils # Man Lymphocytes # (Manual) Monocytes # (Manual) Eosinophils # (Manual) PT INR APTT Fibrinogen POC ABG pH ABG pH POC ABG pCO2 POC ABG pO2 ABG pO2 ABG HCO3 ABG O2 Saturation ABG Base Excess ABG Hemoglobin Oxyhemoglobin Sodium Potassium Chloride Carbon Dioxide BUN 70 H Creatinine Glucose 310 H POC Glucose 283 H 301 H Uric Acid Calcium 8.3 L Phosphorus 4.60 H Magnesium Iron TIBC AST ALT 75 H Total Creatine Kinase CK-MB (CK-2) Troponin T NT-Pro-B Natriuret Pep Total Protein 5.6 L Albumin 2.9 L Triglycerides HDL Cholesterol Folate Urine WBC (Auto) Urine Creatinine Urine Total Protein Vancomycin Trough 06/06/19 06/06/19 06/07/19 22:21 23:16 04:30 WBC RBC Hgb Hct MCV MCH MCHC RDW Plt Count Lymph % (Auto) [place] % (Auto) Eos % (Auto) Lymph # [place] # Eos # Seg Neutrophils % Seg Neuts % (Manual) Lymphocytes % (Manual) Monocytes % (Manual) Eosinophils % (Manual) Nucleated RBC % Seg Neutrophils # Seg Neutrophils # Man Lymphocytes # (Manual) Monocytes # (Manual) Eosinophils # (Manual) PT INR APTT Fibrinogen POC ABG pH ABG pH 7.480 H POC ABG pCO2 POC ABG pO2 ABG pO2 77.0 L ABG HCO3 27.2 H ABG O2 Saturation ABG Base Excess 3.5 H ABG Hemoglobin 7.1 L Oxyhemoglobin 94.2 L Sodium Potassium Chloride Carbon Dioxide BUN Creatinine Glucose POC Glucose 289 H 343 H Uric Acid Calcium Phosphorus Magnesium Iron TIBC AST ALT Total Creatine Kinase CK-MB (CK-2) Troponin T NT-Pro-B Natriuret Pep Total Protein Albumin Triglycerides HDL Cholesterol Folate Urine WBC (Auto) Urine Creatinine Urine Total Protein Vancomycin Trough 06/07/19 06/07/19 06/07/19 05:15 12:52 18:41 WBC RBC Hgb Hct MCV MCH MCHC RDW Plt Count Lymph % (Auto) [place] % (Auto) Eos % (Auto) Lymph # [place] # Eos # Seg Neutrophils % Seg Neuts % (Manual) Lymphocytes % (Manual) Monocytes % (Manual) Eosinophils % (Manual) Nucleated RBC % Seg Neutrophils # Seg Neutrophils # Man Lymphocytes # (Manual) Monocytes # (Manual) Eosinophils # (Manual) PT INR APTT Fibrinogen POC ABG pH ABG pH POC ABG pCO2 POC ABG pO2 ABG pO2 ABG HCO3 ABG O2 Saturation ABG Base Excess ABG Hemoglobin Oxyhemoglobin Sodium Potassium Chloride Carbon Dioxide BUN Creatinine Glucose POC Glucose 307 H 226 H 187 H Uric Acid Calcium Phosphorus Magnesium Iron TIBC AST ALT Total Creatine Kinase CK-MB (CK-2) Troponin T NT-Pro-B Natriuret Pep Total Protein Albumin Triglycerides HDL Cholesterol Folate Urine WBC (Auto) Urine Creatinine Urine Total Protein Vancomycin Trough 06/07/19 06/07/19 06/08/19 22:54 23:46 04:20 WBC 16.0 H RBC Hgb 10.0 L Hct 32.1 L MCV MCH 27 L MCHC 31 L RDW 19.4 H Plt Count Lymph % (Auto) [place] % (Auto) Eos % (Auto) Lymph # [place] # Eos # Seg Neutrophils % Seg Neuts % (Manual) 87.0 H Lymphocytes % (Manual) 7.0 L Monocytes % (Manual) Eosinophils % (Manual) Nucleated RBC % Seg Neutrophils # Seg Neutrophils # Man 13.9 H Lymphocytes # (Manual) 1.1 L Monocytes # (Manual) 1.0 H Eosinophils # (Manual) PT INR APTT Fibrinogen POC ABG pH ABG pH POC ABG pCO2 POC ABG pO2 ABG pO2 ABG HCO3 ABG O2 Saturation ABG Base Excess ABG Hemoglobin Oxyhemoglobin Sodium Potassium Chloride Carbon Dioxide BUN Creatinine Glucose POC Glucose 199 H 172 H Uric Acid Calcium Phosphorus Magnesium Iron TIBC AST ALT Total Creatine Kinase CK-MB (CK-2) Troponin T NT-Pro-B Natriuret Pep Total Protein Albumin Triglycerides HDL Cholesterol Folate Urine WBC (Auto) Urine Creatinine Urine Total Protein Vancomycin Trough 06/08/19 06/08/19 06/08/19 04:20 05:15 11:31 WBC RBC Hgb Hct MCV MCH MCHC RDW Plt Count Lymph % (Auto) [place] % (Auto) Eos % (Auto) Lymph # [place] # Eos # Seg Neutrophils % Seg Neuts % (Manual) Lymphocytes % (Manual) Monocytes % (Manual) Eosinophils % (Manual) Nucleated RBC % Seg Neutrophils # Seg Neutrophils # Man Lymphocytes # (Manual) Monocytes # (Manual) Eosinophils # (Manual) PT INR APTT Fibrinogen POC ABG pH ABG pH POC ABG pCO2 POC ABG pO2 ABG pO2 ABG HCO3 ABG O2 Saturation ABG Base Excess ABG Hemoglobin Oxyhemoglobin Sodium 146 H D Potassium Chloride Carbon Dioxide BUN 77 H Creatinine Glucose 205 H POC Glucose 209 H 181 H Uric Acid Calcium Phosphorus Magnesium Iron TIBC AST ALT 66 H Total Creatine Kinase CK-MB (CK-2) Troponin T NT-Pro-B Natriuret Pep Total Protein 5.5 L Albumin 2.9 L Triglycerides HDL Cholesterol Folate Urine WBC (Auto) Urine Creatinine Urine Total Protein Vancomycin Trough 06/08/19 06/08/19 06/09/19 17:28 23:24 05:20 WBC RBC Hgb Hct MCV MCH MCHC RDW Plt Count Lymph % (Auto) [place] % (Auto) Eos % (Auto) Lymph # [place] # Eos # Seg Neutrophils % Seg Neuts % (Manual) Lymphocytes % (Manual) Monocytes % (Manual) Eosinophils % (Manual) Nucleated RBC % Seg Neutrophils # Seg Neutrophils # Man Lymphocytes # (Manual) Monocytes # (Manual) Eosinophils # (Manual) PT INR APTT Fibrinogen POC ABG pH ABG pH POC ABG pCO2 POC ABG pO2 ABG pO2 ABG HCO3 ABG O2 Saturation ABG Base Excess ABG Hemoglobin Oxyhemoglobin Sodium Potassium Chloride Carbon Dioxide BUN Creatinine Glucose POC Glucose 215 H 200 H 173 H Uric Acid Calcium Phosphorus Magnesium Iron TIBC AST ALT Total Creatine Kinase CK-MB (CK-2) Troponin T NT-Pro-B Natriuret Pep Total Protein Albumin Triglycerides HDL Cholesterol Folate Urine WBC (Auto) Urine Creatinine Urine Total Protein Vancomycin Trough 06/09/19 06/09/19 06/09/19 12:07 18:32 23:51 WBC RBC Hgb Hct MCV MCH MCHC RDW Plt Count Lymph % (Auto) [place] % (Auto) Eos % (Auto) Lymph # [place] # Eos # Seg Neutrophils % Seg Neuts % (Manual) Lymphocytes % (Manual) Monocytes % (Manual) Eosinophils % (Manual) Nucleated RBC % Seg Neutrophils # Seg Neutrophils # Man Lymphocytes # (Manual) Monocytes # (Manual) Eosinophils # (Manual) PT INR APTT Fibrinogen POC ABG pH ABG pH POC ABG pCO2 POC ABG pO2 ABG pO2 ABG HCO3 ABG O2 Saturation ABG Base Excess ABG Hemoglobin Oxyhemoglobin Sodium Potassium Chloride Carbon Dioxide BUN Creatinine Glucose POC Glucose 117 H 169 H 147 H Uric Acid Calcium Phosphorus Magnesium Iron TIBC AST ALT Total Creatine Kinase CK-MB (CK-2) Troponin T NT-Pro-B Natriuret Pep Total Protein Albumin Triglycerides HDL Cholesterol Folate Urine WBC (Auto) Urine Creatinine Urine Total Protein Vancomycin Trough 06/10/19 06/10/19 06/10/19 05:45 05:45 06:01 WBC 14.6 H RBC Hgb 9.9 L Hct 32.2 L MCV MCH 27 L MCHC 31 L RDW 19.6 H Plt Count Lymph % (Auto) 10.5 L [place] % (Auto) 9.4 H Eos % (Auto) Lymph # Tift # 1.4 H Eos # Seg Neutrophils % 79.9 H Seg Neuts % (Manual) Lymphocytes % (Manual) Monocytes % (Manual) Eosinophils % (Manual) Nucleated RBC % Seg Neutrophils # 11.7 H Seg Neutrophils # Man Lymphocytes # (Manual) Monocytes # (Manual) Eosinophils # (Manual) PT INR APTT Fibrinogen POC ABG pH ABG pH POC ABG pCO2 POC ABG pO2 ABG pO2 ABG HCO3 ABG O2 Saturation ABG Base Excess ABG Hemoglobin Oxyhemoglobin Sodium 150 H Potassium Chloride 108.3 H Carbon Dioxide BUN 49 H Creatinine Glucose 172 H POC Glucose 165 H Uric Acid Calcium Phosphorus Magnesium 1.40 L Iron TIBC AST ALT Total Creatine Kinase CK-MB (CK-2) Troponin T NT-Pro-B Natriuret Pep Total Protein Albumin Triglycerides HDL Cholesterol Folate Urine WBC (Auto) Urine Creatinine Urine Total Protein Vancomycin Trough 06/10/19 06/10/19 06/11/19 12:11 18:30 00:02 WBC RBC Hgb Hct MCV MCH MCHC RDW Plt Count Lymph % (Auto) [place] % (Auto) Eos % (Auto) Lymph # [place] # Eos # Seg Neutrophils % Seg Neuts % (Manual) Lymphocytes % (Manual) Monocytes % (Manual) Eosinophils % (Manual) Nucleated RBC % Seg Neutrophils # Seg Neutrophils # Man Lymphocytes # (Manual) Monocytes # (Manual) Eosinophils # (Manual) PT INR APTT Fibrinogen POC ABG pH ABG pH POC ABG pCO2 POC ABG pO2 ABG pO2 ABG HCO3 ABG O2 Saturation ABG Base Excess ABG Hemoglobin Oxyhemoglobin Sodium Potassium Chloride Carbon Dioxide BUN Creatinine Glucose POC Glucose 150 H 154 H 130 H Uric Acid Calcium Phosphorus Magnesium Iron TIBC AST ALT Total Creatine Kinase CK-MB (CK-2) Troponin T NT-Pro-B Natriuret Pep Total Protein Albumin Triglycerides HDL Cholesterol Folate Urine WBC (Auto) Urine Creatinine Urine Total Protein Vancomycin Trough 06/11/19 06/11/19 06/11/19 05:33 08:34 12:33 WBC RBC Hgb Hct MCV MCH MCHC RDW Plt Count Lymph % (Auto) [place] % (Auto) Eos % (Auto) Lymph # [place] # Eos # Seg Neutrophils % Seg Neuts % (Manual) Lymphocytes % (Manual) Monocytes % (Manual) Eosinophils % (Manual) Nucleated RBC % Seg Neutrophils # Seg Neutrophils # Man Lymphocytes # (Manual) Monocytes # (Manual) Eosinophils # (Manual) PT INR APTT Fibrinogen POC ABG pH ABG pH POC ABG pCO2 POC ABG pO2 ABG pO2 ABG HCO3 ABG O2 Saturation ABG Base Excess ABG Hemoglobin Oxyhemoglobin Sodium 154 H Potassium Chloride 111.6 H Carbon Dioxide BUN 41 H Creatinine Glucose 147 H POC Glucose 183 H 185 H Uric Acid Calcium Phosphorus Magnesium Iron TIBC AST ALT Total Creatine Kinase CK-MB (CK-2) Troponin T NT-Pro-B Natriuret Pep Total Protein Albumin Triglycerides HDL Cholesterol Folate Urine WBC (Auto) Urine Creatinine Urine Total Protein Vancomycin Trough 06/11/19 06/11/19 06/12/19 18:22 23:46 03:21 WBC 11.9 H RBC 3.61 L Hgb 9.9 L Hct 31.7 L MCV MCH 27 L MCHC 31 L RDW 19.3 H Plt Count Lymph % (Auto) 10.6 L [place] % (Auto) 8.6 H Eos % (Auto) Lymph # [place]ift # 1.0 H Eos # Seg Neutrophils % 80.6 H Seg Neuts % (Manual) Lymphocytes % (Manual) Monocytes % (Manual) Eosinophils % (Manual) Nucleated RBC % Seg Neutrophils # 9.6 H Seg Neutrophils # Man Lymphocytes # (Manual) Monocytes # (Manual) Eosinophils # (Manual) PT INR APTT Fibrinogen POC ABG pH ABG pH POC ABG pCO2 POC ABG pO2 ABG pO2 ABG HCO3 ABG O2 Saturation ABG Base Excess ABG Hemoglobin Oxyhemoglobin Sodium Potassium Chloride Carbon Dioxide BUN Creatinine Glucose POC Glucose 158 H 182 H Uric Acid Calcium Phosphorus Magnesium Iron TIBC AST ALT Total Creatine Kinase CK-MB (CK-2) Troponin T NT-Pro-B Natriuret Pep Total Protein Albumin Triglycerides HDL Cholesterol Folate Urine WBC (Auto) Urine Creatinine Urine Total Protein Vancomycin Trough 06/12/19 06/12/19 06/12/19 03:21 06:04 11:28 WBC RBC Hgb Hct MCV MCH MCHC RDW Plt Count Lymph % (Auto) [place] % (Auto) Eos % (Auto) Lymph # [place] # Eos # Seg Neutrophils % Seg Neuts % (Manual) Lymphocytes % (Manual) Monocytes % (Manual) Eosinophils % (Manual) Nucleated RBC % Seg Neutrophils # Seg Neutrophils # Man Lymphocytes # (Manual) Monocytes # (Manual) Eosinophils # (Manual) PT INR APTT Fibrinogen POC ABG pH ABG pH POC ABG pCO2 POC ABG pO2 ABG pO2 ABG HCO3 ABG O2 Saturation ABG Base Excess ABG Hemoglobin Oxyhemoglobin Sodium 148 H Potassium Chloride 107.3 H Carbon Dioxide BUN 34 H Creatinine 0.7 L Glucose 194 H POC Glucose 133 H 167 H Uric Acid Calcium Phosphorus Magnesium 1.40 L Iron TIBC AST ALT Total Creatine Kinase CK-MB (CK-2) Troponin T NT-Pro-B Natriuret Pep Total Protein Albumin Triglycerides HDL Cholesterol Folate Urine WBC (Auto) Urine Creatinine Urine Total Protein Vancomycin Trough 06/12/19 06/12/19 06/13/19 18:47 21:27 00:04 WBC RBC Hgb Hct MCV MCH MCHC RDW Plt Count Lymph % (Auto) [place] % (Auto) Eos % (Auto) Lymph # [place] # Eos # Seg Neutrophils % Seg Neuts % (Manual) Lymphocytes % (Manual) Monocytes % (Manual) Eosinophils % (Manual) Nucleated RBC % Seg Neutrophils # Seg Neutrophils # Man Lymphocytes # (Manual) Monocytes # (Manual) Eosinophils # (Manual) PT INR APTT Fibrinogen POC ABG pH ABG pH POC ABG pCO2 POC ABG pO2 ABG pO2 ABG HCO3 ABG O2 Saturation ABG Base Excess ABG Hemoglobin Oxyhemoglobin Sodium Potassium Chloride Carbon Dioxide BUN Creatinine Glucose POC Glucose 210 H 263 H 248 H Uric Acid Calcium Phosphorus Magnesium Iron TIBC AST ALT Total Creatine Kinase CK-MB (CK-2) Troponin T NT-Pro-B Natriuret Pep Total Protein Albumin Triglycerides HDL Cholesterol Folate Urine WBC (Auto) Urine Creatinine Urine Total Protein Vancomycin Trough 06/13/19 06/13/19 06/13/19 04:32 05:46 13:30 WBC RBC Hgb Hct MCV MCH MCHC RDW Plt Count Lymph % (Auto) [place] % (Auto) Eos % (Auto) Lymph # [place] # Eos # Seg Neutrophils % Seg Neuts % (Manual) Lymphocytes % (Manual) Monocytes % (Manual) Eosinophils % (Manual) Nucleated RBC % Seg Neutrophils # Seg Neutrophils # Man Lymphocytes # (Manual) Monocytes # (Manual) Eosinophils # (Manual) PT INR APTT Fibrinogen POC ABG pH ABG pH POC ABG pCO2 POC ABG pO2 ABG pO2 ABG HCO3 ABG O2 Saturation ABG Base Excess ABG Hemoglobin Oxyhemoglobin Sodium Potassium Chloride Carbon Dioxide BUN 27 H Creatinine 0.7 L Glucose 253 H POC Glucose 201 H 241 H Uric Acid Calcium Phosphorus Magnesium Iron TIBC AST ALT Total Creatine Kinase CK-MB (CK-2) Troponin T NT-Pro-B Natriuret Pep Total Protein Albumin Triglycerides HDL Cholesterol Folate Urine WBC (Auto) Urine Creatinine Urine Total Protein Vancomycin Trough 06/13/19 06/13/19 06/14/19 17:33 23:49 04:50 WBC RBC Hgb Hct MCV MCH MCHC RDW Plt Count Lymph % (Auto) Tift % (Auto) Eos % (Auto) Lymph # Tift # Eos # Seg Neutrophils % Seg Neuts % (Manual) Lymphocytes % (Manual) Monocytes % (Manual) Eosinophils % (Manual) Nucleated RBC % Seg Neutrophils # Seg Neutrophils # Man Lymphocytes # (Manual) Monocytes # (Manual) Eosinophils # (Manual) PT INR APTT Fibrinogen POC ABG pH ABG pH POC ABG pCO2 POC ABG pO2 ABG pO2 ABG HCO3 ABG O2 Saturation ABG Base Excess ABG Hemoglobin Oxyhemoglobin Sodium Potassium Chloride Carbon Dioxide BUN 37 H Creatinine Glucose 256 H POC Glucose 264 H 236 H Uric Acid Calcium Phosphorus Magnesium Iron TIBC AST ALT Total Creatine Kinase CK-MB (CK-2) Troponin T NT-Pro-B Natriuret Pep Total Protein Albumin Triglycerides HDL Cholesterol Folate Urine WBC (Auto) Urine Creatinine Urine Total Protein Vancomycin Trough 06/14/19 06/14/19 06/14/19 05:26 12:31 18:32 WBC RBC Hgb Hct MCV MCH MCHC RDW Plt Count Lymph % (Auto) T[place] % (Auto) Eos % (Auto) Lymph # Tift # Eos # Seg Neutrophils % Seg Neuts % (Manual) Lymphocytes % (Manual) Monocytes % (Manual) Eosinophils % (Manual) Nucleated RBC % Seg Neutrophils # Seg Neutrophils # Man Lymphocytes # (Manual) Monocytes # (Manual) Eosinophils # (Manual) PT INR APTT Fibrinogen POC ABG pH ABG pH POC ABG pCO2 POC ABG pO2 ABG pO2 ABG HCO3 ABG O2 Saturation ABG Base Excess ABG Hemoglobin Oxyhemoglobin Sodium Potassium Chloride Carbon Dioxide BUN Creatinine Glucose POC Glucose 239 H 116 H 247 H Uric Acid Calcium Phosphorus Magnesium Iron TIBC AST ALT Total Creatine Kinase CK-MB (CK-2) Troponin T NT-Pro-B Natriuret Pep Total Protein Albumin Triglycerides HDL Cholesterol Folate Urine WBC (Auto) Urine Creatinine Urine Total Protein Vancomycin Trough 06/14/19 06/15/19 06/15/19 23:57 04:05 05:55 WBC RBC Hgb Hct MCV MCH MCHC RDW Plt Count Lymph % (Auto) [place] % (Auto) Eos % (Auto) Lymph # [place] # Eos # Seg Neutrophils % Seg Neuts % (Manual) Lymphocytes % (Manual) Monocytes % (Manual) Eosinophils % (Manual) Nucleated RBC % Seg Neutrophils # Seg Neutrophils # Man Lymphocytes # (Manual) Monocytes # (Manual) Eosinophils # (Manual) PT INR APTT Fibrinogen POC ABG pH ABG pH POC ABG pCO2 POC ABG pO2 ABG pO2 ABG HCO3 ABG O2 Saturation ABG Base Excess ABG Hemoglobin Oxyhemoglobin Sodium Potassium Chloride Carbon Dioxide BUN 46 H Creatinine 0.7 L Glucose 265 H POC Glucose 206 H 265 H Uric Acid Calcium Phosphorus Magnesium Iron TIBC AST ALT Total Creatine Kinase CK-MB (CK-2) Troponin T NT-Pro-B Natriuret Pep Total Protein Albumin Triglycerides HDL Cholesterol Folate Urine WBC (Auto) Urine Creatinine Urine Total Protein Vancomycin Trough 06/15/19 06/15/19 06/15/19 12:08 18:45 23:41 WBC RBC Hgb Hct MCV MCH MCHC RDW Plt Count Lymph % (Auto) [place] % (Auto) Eos % (Auto) Lymph # [place] # Eos # Seg Neutrophils % Seg Neuts % (Manual) Lymphocytes % (Manual) Monocytes % (Manual) Eosinophils % (Manual) Nucleated RBC % Seg Neutrophils # Seg Neutrophils # Man Lymphocytes # (Manual) Monocytes # (Manual) Eosinophils # (Manual) PT INR APTT Fibrinogen POC ABG pH ABG pH POC ABG pCO2 POC ABG pO2 ABG pO2 ABG HCO3 ABG O2 Saturation ABG Base Excess ABG Hemoglobin Oxyhemoglobin Sodium Potassium Chloride Carbon Dioxide BUN Creatinine Glucose POC Glucose 224 H 177 H 193 H Uric Acid Calcium Phosphorus Magnesium Iron TIBC AST ALT Total Creatine Kinase CK-MB (CK-2) Troponin T NT-Pro-B Natriuret Pep Total Protein Albumin Triglycerides HDL Cholesterol Folate Urine WBC (Auto) Urine Creatinine Urine Total Protein Vancomycin Trough 06/16/19 06/16/19 06/16/19 05:00 05:00 05:40 WBC 11.9 H RBC 3.24 L Hgb 9.0 L Hct 29.0 L MCV MCH MCHC 31 L RDW 18.6 H Plt Count 111 L Lymph % (Auto) [place] % (Auto) Eos % (Auto) Lymph # [place] # Eos # Seg Neutrophils % Seg Neuts % (Manual) 92.0 H Lymphocytes % (Manual) 2.0 L Monocytes % (Manual) Eosinophils % (Manual) Nucleated RBC % Seg Neutrophils # Seg Neutrophils # Man 10.9 H Lymphocytes # (Manual) 0.2 L Monocytes # (Manual) Eosinophils # (Manual) PT INR APTT Fibrinogen POC ABG pH ABG pH POC ABG pCO2 POC ABG pO2 ABG pO2 ABG HCO3 ABG O2 Saturation ABG Base Excess ABG Hemoglobin Oxyhemoglobin Sodium Potassium Chloride Carbon Dioxide 33 H BUN 49 H Creatinine 0.7 L Glucose 264 H POC Glucose 247 H Uric Acid Calcium Phosphorus Magnesium Iron TIBC AST ALT Total Creatine Kinase CK-MB (CK-2) Troponin T NT-Pro-B Natriuret Pep Total Protein Albumin Triglycerides HDL Cholesterol Folate Urine WBC (Auto) Urine Creatinine Urine Total Protein Vancomycin Trough 06/16/19 06/16/19 06/16/19 12:03 17:11 18:11 WBC RBC Hgb Hct MCV MCH MCHC RDW Plt Count Lymph % (Auto) [place] % (Auto) Eos % (Auto) Lymph # [place] # Eos # Seg Neutrophils % Seg Neuts % (Manual) Lymphocytes % (Manual) Monocytes % (Manual) Eosinophils % (Manual) Nucleated RBC % Seg Neutrophils # Seg Neutrophils # Man Lymphocytes # (Manual) Monocytes # (Manual) Eosinophils # (Manual) PT INR APTT Fibrinogen POC ABG pH ABG pH 7.289 L POC ABG pCO2 POC ABG pO2 ABG pO2 399.3 H ABG HCO3 30.1 H ABG O2 Saturation 99.6 H ABG Base Excess ABG Hemoglobin 8.6 L Oxyhemoglobin Sodium Potassium Chloride Carbon Dioxide BUN Creatinine Glucose POC Glucose 252 H 254 H Uric Acid Calcium Phosphorus Magnesium Iron TIBC AST ALT Total Creatine Kinase CK-MB (CK-2) Troponin T NT-Pro-B Natriuret Pep Total Protein Albumin Triglycerides HDL Cholesterol Folate Urine WBC (Auto) Urine Creatinine Urine Total Protein Vancomycin Trough 06/16/19 06/17/19 06/17/19 23:16 05:30 05:53 WBC RBC Hgb Hct MCV MCH MCHC RDW Plt Count Lymph % (Auto) [place] % (Auto) Eos % (Auto) Lymph # [place] # Eos # Seg Neutrophils % Seg Neuts % (Manual) Lymphocytes % (Manual) Monocytes % (Manual) Eosinophils % (Manual) Nucleated RBC % Seg Neutrophils # Seg Neutrophils # Man Lymphocytes # (Manual) Monocytes # (Manual) Eosinophils # (Manual) PT INR APTT Fibrinogen POC ABG pH ABG pH POC ABG pCO2 POC ABG pO2 ABG pO2 ABG HCO3 ABG O2 Saturation ABG Base Excess ABG Hemoglobin Oxyhemoglobin Sodium 147 H Potassium Chloride Carbon Dioxide 32 H BUN 60 H Creatinine Glucose 205 H POC Glucose 238 H 211 H Uric Acid Calcium Phosphorus Magnesium Iron TIBC AST ALT Total Creatine Kinase CK-MB (CK-2) Troponin T NT-Pro-B Natriuret Pep Total Protein Albumin Triglycerides HDL Cholesterol Folate Urine WBC (Auto) Urine Creatinine Urine Total Protein Vancomycin Trough 06/17/19 06/17/19 06/17/19 09:50 12:27 12:45 WBC RBC 2.79 L Hgb 8.2 L Hct 24.6 L MCV MCH MCHC RDW 18.5 H Plt Count 95 L Lymph % (Auto) [place] % (Auto) Eos % (Auto) Lymph # [place] # Eos # Seg Neutrophils % Seg Neuts % (Manual) Lymphocytes % (Manual) Monocytes % (Manual) Eosinophils % (Manual) Nucleated RBC % Seg Neutrophils # Seg Neutrophils # Man Lymphocytes # (Manual) Monocytes # (Manual) Eosinophils # (Manual) PT INR APTT Fibrinogen 194 L POC ABG pH ABG pH POC ABG pCO2 POC ABG pO2 ABG pO2 ABG HCO3 ABG O2 Saturation ABG Base Excess ABG Hemoglobin Oxyhemoglobin Sodium Potassium Chloride Carbon Dioxide BUN Creatinine Glucose POC Glucose 224 H Uric Acid Calcium Phosphorus Magnesium Iron TIBC AST ALT Total Creatine Kinase CK-MB (CK-2) Troponin T NT-Pro-B Natriuret Pep Total Protein Albumin Triglycerides HDL Cholesterol Folate Urine WBC (Auto) Urine Creatinine Urine Total Protein Vancomycin Trough 06/17/19 06/17/19 06/17/19 18:41 22:00 23:23 WBC RBC Hgb Hct MCV MCH MCHC RDW Plt Count Lymph % (Auto) [place] % (Auto) Eos % (Auto) Lymph # [place] # Eos # Seg Neutrophils % Seg Neuts % (Manual) Lymphocytes % (Manual) Monocytes % (Manual) Eosinophils % (Manual) Nucleated RBC % Seg Neutrophils # Seg Neutrophils # Man Lymphocytes # (Manual) Monocytes # (Manual) Eosinophils # (Manual) PT INR APTT Fibrinogen POC ABG pH ABG pH POC ABG pCO2 POC ABG pO2 ABG pO2 ABG HCO3 ABG O2 Saturation ABG Base Excess ABG Hemoglobin Oxyhemoglobin Sodium Potassium Chloride Carbon Dioxide BUN Creatinine Glucose POC Glucose 198 H 166 H 171 H Uric Acid Calcium Phosphorus Magnesium Iron TIBC AST ALT Total Creatine Kinase CK-MB (CK-2) Troponin T NT-Pro-B Natriuret Pep Total Protein Albumin Triglycerides HDL Cholesterol Folate Urine WBC (Auto) Urine Creatinine Urine Total Protein Vancomycin Trough 06/17/19 06/18/19 06/18/19 Unknown 03:50 04:25 WBC RBC Hgb Hct MCV MCH MCHC RDW Plt Count Lymph % (Auto) [place] % (Auto) Eos % (Auto) Lymph # [place] # Eos # Seg Neutrophils % Seg Neuts % (Manual) Lymphocytes % (Manual) Monocytes % (Manual) Eosinophils % (Manual) Nucleated RBC % Seg Neutrophils # Seg Neutrophils # Man Lymphocytes # (Manual) Monocytes # (Manual) Eosinophils # (Manual) PT INR APTT Fibrinogen POC ABG pH ABG pH 7.564 H 7.499 H POC ABG pCO2 POC ABG pO2 ABG pO2 238.6 H 130.8 H ABG HCO3 33.6 H 32.5 H ABG O2 Saturation 99.4 H ABG Base Excess 10.6 H 8.5 H ABG Hemoglobin 7.9 L 8.8 L Oxyhemoglobin Sodium 151 H Potassium 3.4 L Chloride Carbon Dioxide BUN 66 H Creatinine Glucose 189 H POC Glucose Uric Acid Calcium Phosphorus Magnesium Iron TIBC AST ALT Total Creatine Kinase CK-MB (CK-2) Troponin T NT-Pro-B Natriuret Pep Total Protein Albumin Triglycerides HDL Cholesterol Folate Urine WBC (Auto) Urine Creatinine Urine Total Protein Vancomycin Trough 06/18/19 06/18/19 06/18/19 05:25 05:27 11:50 WBC RBC 2.61 L Hgb 7.4 L Hct 22.9 L MCV MCH MCHC RDW 19.9 H Plt Count 81 L Lymph % (Auto) 12.9 L [place] % (Auto) 7.7 H Eos % (Auto) Lymph # 1.1 L [place] # Eos # Seg Neutrophils % 77.4 H Seg Neuts % (Manual) Lymphocytes % (Manual) Monocytes % (Manual) Eosinophils % (Manual) Nucleated RBC % Seg Neutrophils # Seg Neutrophils # Man Lymphocytes # (Manual) Monocytes # (Manual) Eosinophils # (Manual) PT INR APTT Fibrinogen POC ABG pH ABG pH POC ABG pCO2 POC ABG pO2 ABG pO2 ABG HCO3 ABG O2 Saturation ABG Base Excess ABG Hemoglobin Oxyhemoglobin Sodium Potassium Chloride Carbon Dioxide BUN Creatinine Glucose POC Glucose 186 H 263 H Uric Acid Calcium Phosphorus Magnesium Iron TIBC AST ALT Total Creatine Kinase CK-MB (CK-2) Troponin T NT-Pro-B Natriuret Pep Total Protein Albumin Triglycerides HDL Cholesterol Folate Urine WBC (Auto) Urine Creatinine Urine Total Protein Vancomycin Trough 06/18/19 06/18/19 06/18/19 18:35 21:31 23:21 WBC RBC Hgb Hct MCV MCH MCHC RDW Plt Count Lymph % (Auto) [place] % (Auto) Eos % (Auto) Lymph # [place] # Eos # Seg Neutrophils % Seg Neuts % (Manual) Lymphocytes % (Manual) Monocytes % (Manual) Eosinophils % (Manual) Nucleated RBC % Seg Neutrophils # Seg Neutrophils # Man Lymphocytes # (Manual) Monocytes # (Manual) Eosinophils # (Manual) PT INR APTT Fibrinogen POC ABG pH ABG pH POC ABG pCO2 POC ABG pO2 ABG pO2 ABG HCO3 ABG O2 Saturation ABG Base Excess ABG Hemoglobin Oxyhemoglobin Sodium Potassium Chloride Carbon Dioxide BUN Creatinine Glucose POC Glucose 154 H 186 H 202 H Uric Acid Calcium Phosphorus Magnesium Iron TIBC AST ALT Total Creatine Kinase CK-MB (CK-2) Troponin T NT-Pro-B Natriuret Pep Total Protein Albumin Triglycerides HDL Cholesterol Folate Urine WBC (Auto) Urine Creatinine Urine Total Protein Vancomycin Trough 06/19/19 06/19/19 06/19/19 03:18 04:30 04:30 WBC RBC 2.65 L Hgb 7.5 L Hct 23.1 L MCV MCH MCHC RDW 19.4 H Plt Count 74 L Lymph % (Auto) 8.8 L [place] % (Auto) 9.4 H Eos % (Auto) 4.7 H Lymph # 0.6 L [place] # Eos # Seg Neutrophils % 76.6 H Seg Neuts % (Manual) Lymphocytes % (Manual) Monocytes % (Manual) Eosinophils % (Manual) Nucleated RBC % Seg Neutrophils # Seg Neutrophils # Man Lymphocytes # (Manual) Monocytes # (Manual) Eosinophils # (Manual) PT INR APTT Fibrinogen POC ABG pH ABG pH 7.452 H POC ABG pCO2 POC ABG pO2 ABG pO2 105.5 H ABG HCO3 32.3 H ABG O2 Saturation ABG Base Excess 7.6 H ABG Hemoglobin 6.9 L Oxyhemoglobin Sodium 150 H Potassium 3.3 L Chloride Carbon Dioxide 31 H BUN 56 H Creatinine Glucose 197 H POC Glucose Uric Acid Calcium Phosphorus Magnesium Iron TIBC AST ALT Total Creatine Kinase CK-MB (CK-2) Troponin T NT-Pro-B Natriuret Pep Total Protein Albumin Triglycerides 210 H HDL Cholesterol Folate Urine WBC (Auto) Urine Creatinine Urine Total Protein Vancomycin Trough 06/19/19 06/19/19 06/19/19 05:24 12:18 18:55 WBC RBC Hgb Hct MCV MCH MCHC RDW Plt Count Lymph % (Auto) [place] % (Auto) Eos % (Auto) Lymph # [place] # Eos # Seg Neutrophils % Seg Neuts % (Manual) Lymphocytes % (Manual) Monocytes % (Manual) Eosinophils % (Manual) Nucleated RBC % Seg Neutrophils # Seg Neutrophils # Man Lymphocytes # (Manual) Monocytes # (Manual) Eosinophils # (Manual) PT INR APTT Fibrinogen POC ABG pH ABG pH POC ABG pCO2 POC ABG pO2 ABG pO2 ABG HCO3 ABG O2 Saturation ABG Base Excess ABG Hemoglobin Oxyhemoglobin Sodium Potassium Chloride Carbon Dioxide BUN Creatinine Glucose POC Glucose 176 H 260 H 192 H Uric Acid Calcium Phosphorus Magnesium Iron TIBC AST ALT Total Creatine Kinase CK-MB (CK-2) Troponin T NT-Pro-B Natriuret Pep Total Protein Albumin Triglycerides HDL Cholesterol Folate Urine WBC (Auto) Urine Creatinine Urine Total Protein Vancomycin Trough 06/19/19 06/19/19 06/20/19 22:57 23:46 04:40 WBC RBC 2.79 L Hgb 7.9 L Hct 24.3 L MCV MCH MCHC RDW 19.6 H Plt Count 92 L Lymph % (Auto) 9.2 L [place] % (Auto) 12.0 H Eos % (Auto) 5.2 H Lymph # 0.9 L [place] # 1.2 H Eos # 0.5 H Seg Neutrophils % 73.3 H Seg Neuts % (Manual) Lymphocytes % (Manual) Monocytes % (Manual) Eosinophils % (Manual) Nucleated RBC % Seg Neutrophils # Seg Neutrophils # Man Lymphocytes # (Manual) Monocytes # (Manual) Eosinophils # (Manual) PT INR APTT Fibrinogen POC ABG pH ABG pH POC ABG pCO2 POC ABG pO2 ABG pO2 ABG HCO3 ABG O2 Saturation ABG Base Excess ABG Hemoglobin Oxyhemoglobin Sodium Potassium Chloride Carbon Dioxide BUN Creatinine Glucose POC Glucose 145 H 216 H Uric Acid Calcium Phosphorus Magnesium Iron TIBC AST ALT Total Creatine Kinase CK-MB (CK-2) Troponin T NT-Pro-B Natriuret Pep Total Protein Albumin Triglycerides HDL Cholesterol Folate Urine WBC (Auto) Urine Creatinine Urine Total Protein Vancomycin Trough 06/20/19 06/20/19 06/20/19 04:40 05:40 05:54 WBC RBC Hgb Hct MCV MCH MCHC RDW Plt Count Lymph % (Auto) [place] % (Auto) Eos % (Auto) Lymph # [place] # Eos # Seg Neutrophils % Seg Neuts % (Manual) Lymphocytes % (Manual) Monocytes % (Manual) Eosinophils % (Manual) Nucleated RBC % Seg Neutrophils # Seg Neutrophils # Man Lymphocytes # (Manual) Monocytes # (Manual) Eosinophils # (Manual) PT INR APTT Fibrinogen POC ABG pH ABG pH 7.455 H POC ABG pCO2 POC ABG pO2 ABG pO2 60.9 L ABG HCO3 30.3 H ABG O2 Saturation 92.3 L ABG Base Excess 5.8 H ABG Hemoglobin 8.2 L Oxyhemoglobin 90.1 L Sodium Potassium 3.5 L Chloride Carbon Dioxide BUN 59 H Creatinine Glucose 200 H POC Glucose 190 H Uric Acid Calcium Phosphorus Magnesium 1.60 L Iron TIBC AST ALT Total Creatine Kinase CK-MB (CK-2) Troponin T NT-Pro-B Natriuret Pep Total Protein Albumin Triglycerides HDL Cholesterol Folate Urine WBC (Auto) Urine Creatinine Urine Total Protein Vancomycin Trough 06/20/19 06/20/19 06/20/19 09:12 09:12 12:24 WBC RBC Hgb Hct MCV MCH MCHC RDW Plt Count Lymph % (Auto) [place] % (Auto) Eos % (Auto) Lymph # [place] # Eos # Seg Neutrophils % Seg Neuts % (Manual) Lymphocytes % (Manual) Monocytes % (Manual) Eosinophils % (Manual) Nucleated RBC % Seg Neutrophils # Seg Neutrophils # Man Lymphocytes # (Manual) Monocytes # (Manual) Eosinophils # (Manual) PT INR APTT Fibrinogen POC ABG pH ABG pH POC ABG pCO2 POC ABG pO2 ABG pO2 ABG HCO3 ABG O2 Saturation ABG Base Excess ABG Hemoglobin Oxyhemoglobin Sodium Potassium Chloride Carbon Dioxide BUN Creatinine Glucose POC Glucose 225 H Uric Acid Calcium Phosphorus Magnesium Iron 45 L TIBC 110 L AST ALT Total Creatine Kinase CK-MB (CK-2) Troponin T NT-Pro-B Natriuret Pep Total Protein Albumin Triglycerides HDL Cholesterol Folate 7.01 L Urine WBC (Auto) Urine Creatinine Urine Total Protein Vancomycin Trough 06/20/19 06/20/19 06/20/19 17:42 21:55 23:24 WBC RBC Hgb Hct MCV MCH MCHC RDW Plt Count Lymph % (Auto) [place] % (Auto) Eos % (Auto) Lymph # [place] # Eos # Seg Neutrophils % Seg Neuts % (Manual) Lymphocytes % (Manual) Monocytes % (Manual) Eosinophils % (Manual) Nucleated RBC % Seg Neutrophils # Seg Neutrophils # Man Lymphocytes # (Manual) Monocytes # (Manual) Eosinophils # (Manual) PT INR APTT Fibrinogen POC ABG pH ABG pH POC ABG pCO2 POC ABG pO2 ABG pO2 ABG HCO3 ABG O2 Saturation ABG Base Excess ABG Hemoglobin Oxyhemoglobin Sodium Potassium Chloride Carbon Dioxide BUN Creatinine Glucose POC Glucose 255 H 218 H 215 H Uric Acid Calcium Phosphorus Magnesium Iron TIBC AST ALT Total Creatine Kinase CK-MB (CK-2) Troponin T NT-Pro-B Natriuret Pep Total Protein Albumin Triglycerides HDL Cholesterol Folate Urine WBC (Auto) Urine Creatinine Urine Total Protein Vancomycin Trough 06/21/19 06/21/19 06/21/19 03:32 03:40 05:20 WBC 12.8 H RBC 3.03 L Hgb 8.5 L Hct 26.2 L MCV MCH MCHC RDW 19.4 H Plt Count 131 L Lymph % (Auto) [place] % (Auto) Eos % (Auto) Lymph # [place] # Eos # Seg Neutrophils % Seg Neuts % (Manual) 78.0 H Lymphocytes % (Manual) 5.0 L Monocytes % (Manual) 11.0 H Eosinophils % (Manual) Nucleated RBC % Seg Neutrophils # Seg Neutrophils # Man 10.0 H Lymphocytes # (Manual) 0.6 L Monocytes # (Manual) 1.4 H Eosinophils # (Manual) 0.5 H PT INR APTT Fibrinogen POC ABG pH ABG pH 7.476 H POC ABG pCO2 POC ABG pO2 ABG pO2 162.0 H ABG HCO3 26.8 H ABG O2 Saturation 99.1 H ABG Base Excess 3.1 H ABG Hemoglobin 8.6 L Oxyhemoglobin Sodium Potassium Chloride Carbon Dioxide BUN Creatinine Glucose POC Glucose 202 H Uric Acid Calcium Phosphorus Magnesium Iron TIBC AST ALT Total Creatine Kinase CK-MB (CK-2) Troponin T NT-Pro-B Natriuret Pep Total Protein Albumin Triglycerides HDL Cholesterol Folate Urine WBC (Auto) Urine Creatinine Urine Total Protein Vancomycin Trough 06/21/19 06/21/19 06/21/19 05:20 12:30 18:18 WBC RBC Hgb Hct MCV MCH MCHC RDW Plt Count Lymph % (Auto) [place] % (Auto) Eos % (Auto) Lymph # [place] # Eos # Seg Neutrophils % Seg Neuts % (Manual) Lymphocytes % (Manual) Monocytes % (Manual) Eosinophils % (Manual) Nucleated RBC % Seg Neutrophils # Seg Neutrophils # Man Lymphocytes # (Manual) Monocytes # (Manual) Eosinophils # (Manual) PT INR APTT Fibrinogen POC ABG pH ABG pH POC ABG pCO2 POC ABG pO2 ABG pO2 ABG HCO3 ABG O2 Saturation ABG Base Excess ABG Hemoglobin Oxyhemoglobin Sodium Potassium Chloride 97.7 L Carbon Dioxide BUN 69 H Creatinine Glucose 239 H POC Glucose 176 H 187 H Uric Acid Calcium Phosphorus Magnesium 2.40 H Iron TIBC AST ALT Total Creatine Kinase CK-MB (CK-2) Troponin T NT-Pro-B Natriuret Pep Total Protein Albumin Triglycerides HDL Cholesterol Folate Urine WBC (Auto) Urine Creatinine Urine Total Protein Vancomycin Trough 06/22/19 06/22/19 06/22/19 04:11 05:30 05:30 WBC 12.6 H RBC 3.10 L Hgb 8.7 L Hct 27.0 L MCV MCH MCHC RDW 19.8 H Plt Count Lymph % (Auto) [place] % (Auto) Eos % (Auto) Lymph # [place] # Eos # Seg Neutrophils % Seg Neuts % (Manual) Lymphocytes % (Manual) Monocytes % (Manual) 10.0 H Eosinophils % (Manual) Nucleated RBC % Seg Neutrophils # Seg Neutrophils # Man 8.7 H Lymphocytes # (Manual) Monocytes # (Manual) 1.3 H Eosinophils # (Manual) PT INR APTT Fibrinogen POC ABG pH ABG pH POC ABG pCO2 POC ABG pO2 ABG pO2 ABG HCO3 27.7 H ABG O2 Saturation ABG Base Excess 3.3 H ABG Hemoglobin 8.5 L Oxyhemoglobin 94.9 L Sodium Potassium Chloride Carbon Dioxide BUN 66 H Creatinine Glucose 103 H POC Glucose Uric Acid Calcium Phosphorus Magnesium Iron TIBC AST ALT Total Creatine Kinase CK-MB (CK-2) Troponin T NT-Pro-B Natriuret Pep Total Protein Albumin Triglycerides HDL Cholesterol Folate Urine WBC (Auto) Urine Creatinine Urine Total Protein Vancomycin Trough 06/22/19 06/22/19 06/23/19 17:43 23:25 02:00 WBC RBC Hgb Hct MCV MCH MCHC RDW Plt Count Lymph % (Auto) [place] % (Auto) Eos % (Auto) Lymph # [place] # Eos # Seg Neutrophils % Seg Neuts % (Manual) Lymphocytes % (Manual) Monocytes % (Manual) Eosinophils % (Manual) Nucleated RBC % Seg Neutrophils # Seg Neutrophils # Man Lymphocytes # (Manual) Monocytes # (Manual) Eosinophils # (Manual) PT INR APTT Fibrinogen POC ABG pH ABG pH 7.469 H POC ABG pCO2 POC ABG pO2 ABG pO2 58.7 L ABG HCO3 28.0 H ABG O2 Saturation 94.6 L ABG Base Excess 4.0 H ABG Hemoglobin 7.1 L Oxyhemoglobin 92.2 L Sodium Potassium Chloride Carbon Dioxide BUN Creatinine Glucose POC Glucose 143 H 106 H Uric Acid Calcium Phosphorus Magnesium Iron TIBC AST ALT Total Creatine Kinase CK-MB (CK-2) Troponin T NT-Pro-B Natriuret Pep Total Protein Albumin Triglycerides HDL Cholesterol Folate Urine WBC (Auto) Urine Creatinine Urine Total Protein Vancomycin Trough 06/23/19 06/23/19 06/23/19 05:24 05:24 11:43 WBC 12.6 H RBC 2.96 L Hgb 8.3 L Hct 25.5 L MCV MCH MCHC RDW 20.2 H Plt Count Lymph % (Auto) [place] % (Auto) Eos % (Auto) Lymph # [place] # Eos # Seg Neutrophils % Seg Neuts % (Manual) Lymphocytes % (Manual) 12.0 L Monocytes % (Manual) 11.0 H Eosinophils % (Manual) 6.0 H Nucleated RBC % Seg Neutrophils # Seg Neutrophils # Man 8.8 H Lymphocytes # (Manual) Monocytes # (Manual) 1.4 H Eosinophils # (Manual) 0.8 H PT INR APTT Fibrinogen POC ABG pH ABG pH POC ABG pCO2 POC ABG pO2 ABG pO2 ABG HCO3 ABG O2 Saturation ABG Base Excess ABG Hemoglobin Oxyhemoglobin Sodium 146 H Potassium 3.5 L Chloride Carbon Dioxide BUN 48 H Creatinine Glucose 123 H POC Glucose 120 H Uric Acid Calcium Phosphorus Magnesium Iron TIBC AST ALT Total Creatine Kinase CK-MB (CK-2) Troponin T NT-Pro-B Natriuret Pep Total Protein Albumin Triglycerides HDL Cholesterol Folate Urine WBC (Auto) Urine Creatinine Urine Total Protein Vancomycin Trough 06/23/19 06/24/19 06/24/19 17:39 06:53 06:53 WBC 12.3 H RBC 2.87 L Hgb 8.0 L Hct 24.9 L MCV MCH MCHC RDW 20.5 H Plt Count Lymph % (Auto) [place] % (Auto) 8.8 H Eos % (Auto) 4.4 H Lymph # [place] # 1.1 H Eos # 0.5 H Seg Neutrophils % Seg Neuts % (Manual) Lymphocytes % (Manual) Monocytes % (Manual) Eosinophils % (Manual) Nucleated RBC % Seg Neutrophils # Seg Neutrophils # Man Lymphocytes # (Manual) Monocytes # (Manual) Eosinophils # (Manual) PT INR APTT Fibrinogen POC ABG pH ABG pH POC ABG pCO2 POC ABG pO2 ABG pO2 ABG HCO3 ABG O2 Saturation ABG Base Excess ABG Hemoglobin Oxyhemoglobin Sodium Potassium Chloride 107.1 H Carbon Dioxide 21 L BUN 29 H Creatinine 0.6 L Glucose 117 H POC Glucose 111 H Uric Acid Calcium Phosphorus Magnesium 1.60 L Iron TIBC AST ALT Total Creatine Kinase CK-MB (CK-2) Troponin T NT-Pro-B Natriuret Pep Total Protein Albumin Triglycerides HDL Cholesterol Folate Urine WBC (Auto) Urine Creatinine Urine Total Protein Vancomycin Trough 06/24/19 06/24/19 06/24/19 12:12 18:01 23:20 WBC RBC Hgb Hct MCV MCH MCHC RDW Plt Count Lymph % (Auto) [place] % (Auto) Eos % (Auto) Lymph # [place] # Eos # Seg Neutrophils % Seg Neuts % (Manual) Lymphocytes % (Manual) Monocytes % (Manual) Eosinophils % (Manual) Nucleated RBC % Seg Neutrophils # Seg Neutrophils # Man Lymphocytes # (Manual) Monocytes # (Manual) Eosinophils # (Manual) PT INR APTT Fibrinogen POC ABG pH ABG pH POC ABG pCO2 POC ABG pO2 ABG pO2 ABG HCO3 ABG O2 Saturation ABG Base Excess ABG Hemoglobin Oxyhemoglobin Sodium Potassium Chloride Carbon Dioxide BUN Creatinine Glucose POC Glucose 158 H 133 H 106 H Uric Acid Calcium Phosphorus Magnesium Iron TIBC AST ALT Total Creatine Kinase CK-MB (CK-2) Troponin T NT-Pro-B Natriuret Pep Total Protein Albumin Triglycerides HDL Cholesterol Folate Urine WBC (Auto) Urine Creatinine Urine Total Protein Vancomycin Trough 06/25/19 06/25/19 06/25/19 04:46 04:46 05:36 WBC 12.3 H RBC 2.98 L Hgb 8.3 L Hct 26.4 L MCV MCH MCHC 31 L RDW 20.1 H Plt Count Lymph % (Auto) [place] % (Auto) Eos % (Auto) Lymph # [place] # Eos # Seg Neutrophils % Seg Neuts % (Manual) Lymphocytes % (Manual) Monocytes % (Manual) 10.0 H Eosinophils % (Manual) Nucleated RBC % Seg Neutrophils # Seg Neutrophils # Man 8.1 H Lymphocytes # (Manual) Monocytes # (Manual) 1.2 H Eosinophils # (Manual) PT INR APTT Fibrinogen POC ABG pH ABG pH POC ABG pCO2 POC ABG pO2 ABG pO2 ABG HCO3 ABG O2 Saturation ABG Base Excess ABG Hemoglobin Oxyhemoglobin Sodium 148 H Potassium Chloride 108.0 H Carbon Dioxide BUN 21 H Creatinine 0.7 L Glucose 120 H POC Glucose 121 H Uric Acid Calcium Phosphorus Magnesium Iron TIBC AST ALT Total Creatine Kinase CK-MB (CK-2) Troponin T NT-Pro-B Natriuret Pep Total Protein Albumin Triglycerides HDL Cholesterol Folate Urine WBC (Auto) Urine Creatinine Urine Total Protein Vancomycin Trough 06/25/19 06/25/19 06/26/19 14:02 18:30 00:01 WBC RBC Hgb Hct MCV MCH MCHC RDW Plt Count Lymph % (Auto) Tift % (Auto) Eos % (Auto) Lymph # Tift # Eos # Seg Neutrophils % Seg Neuts % (Manual) Lymphocytes % (Manual) Monocytes % (Manual) Eosinophils % (Manual) Nucleated RBC % Seg Neutrophils # Seg Neutrophils # Man Lymphocytes # (Manual) Monocytes # (Manual) Eosinophils # (Manual) PT INR APTT Fibrinogen POC ABG pH ABG pH POC ABG pCO2 POC ABG pO2 ABG pO2 ABG HCO3 ABG O2 Saturation ABG Base Excess ABG Hemoglobin Oxyhemoglobin Sodium Potassium Chloride Carbon Dioxide BUN Creatinine Glucose POC Glucose 125 H 145 H 142 H Uric Acid Calcium Phosphorus Magnesium Iron TIBC AST ALT Total Creatine Kinase CK-MB (CK-2) Troponin T NT-Pro-B Natriuret Pep Total Protein Albumin Triglycerides HDL Cholesterol Folate Urine WBC (Auto) Urine Creatinine Urine Total Protein Vancomycin Trough 06/26/19 06/26/19 06/26/19 04:43 04:43 05:41 WBC RBC 3.02 L Hgb 8.6 L Hct 27.0 L MCV MCH MCHC RDW 20.4 H Plt Count Lymph % (Auto) Tift % (Auto) Eos % (Auto) Lymph # Tift # Eos # Seg Neutrophils % Seg Neuts % (Manual) Lymphocytes % (Manual) Monocytes % (Manual) 9.0 H Eosinophils % (Manual) Nucleated RBC % Seg Neutrophils # Seg Neutrophils # Man Lymphocytes # (Manual) Monocytes # (Manual) 1.0 H Eosinophils # (Manual) PT INR APTT Fibrinogen POC ABG pH ABG pH POC ABG pCO2 POC ABG pO2 ABG pO2 ABG HCO3 ABG O2 Saturation ABG Base Excess ABG Hemoglobin Oxyhemoglobin Sodium Potassium Chloride Carbon Dioxide BUN Creatinine 0.7 L Glucose 111 H POC Glucose 110 H Uric Acid Calcium Phosphorus Magnesium 1.60 L Iron TIBC AST ALT Total Creatine Kinase CK-MB (CK-2) Troponin T NT-Pro-B Natriuret Pep Total Protein Albumin Triglycerides HDL Cholesterol Folate Urine WBC (Auto) Urine Creatinine Urine Total Protein Vancomycin Trough 06/26/19 06/26/19 06/27/19 11:55 18:07 12:10 WBC RBC Hgb Hct MCV MCH MCHC RDW Plt Count Lymph % (Auto) [place] % (Auto) Eos % (Auto) Lymph # [place] # Eos # Seg Neutrophils % Seg Neuts % (Manual) Lymphocytes % (Manual) Monocytes % (Manual) Eosinophils % (Manual) Nucleated RBC % Seg Neutrophils # Seg Neutrophils # Man Lymphocytes # (Manual) Monocytes # (Manual) Eosinophils # (Manual) PT INR APTT Fibrinogen POC ABG pH ABG pH POC ABG pCO2 POC ABG pO2 ABG pO2 ABG HCO3 ABG O2 Saturation ABG Base Excess ABG Hemoglobin Oxyhemoglobin Sodium Potassium Chloride Carbon Dioxide BUN Creatinine Glucose POC Glucose 159 H 107 H 121 H Uric Acid Calcium Phosphorus Magnesium Iron TIBC AST ALT Total Creatine Kinase CK-MB (CK-2) Troponin T NT-Pro-B Natriuret Pep Total Protein Albumin Triglycerides HDL Cholesterol Folate Urine WBC (Auto) Urine Creatinine Urine Total Protein Vancomycin Trough 06/28/19 06/29/19 06/29/19 05:54 13:10 17:58 WBC RBC Hgb Hct MCV MCH MCHC RDW Plt Count Lymph % (Auto) [place] % (Auto) Eos % (Auto) Lymph # [place] # Eos # Seg Neutrophils % Seg Neuts % (Manual) Lymphocytes % (Manual) Monocytes % (Manual) Eosinophils % (Manual) Nucleated RBC % Seg Neutrophils # Seg Neutrophils # Man Lymphocytes # (Manual) Monocytes # (Manual) Eosinophils # (Manual) PT INR APTT Fibrinogen POC ABG pH ABG pH POC ABG pCO2 POC ABG pO2 ABG pO2 ABG HCO3 ABG O2 Saturation ABG Base Excess ABG Hemoglobin Oxyhemoglobin Sodium Potassium Chloride Carbon Dioxide BUN Creatinine Glucose POC Glucose 107 H 115 H 108 H Uric Acid Calcium Phosphorus Magnesium Iron TIBC AST ALT Total Creatine Kinase CK-MB (CK-2) Troponin T NT-Pro-B Natriuret Pep Total Protein Albumin Triglycerides HDL Cholesterol Folate Urine WBC (Auto) Urine Creatinine Urine Total Protein Vancomycin Trough 06/30/19 06/30/19 07/01/19 12:00 18:13 05:49 WBC RBC Hgb Hct MCV MCH MCHC RDW Plt Count Lymph % (Auto) [place] % (Auto) Eos % (Auto) Lymph # [place] # Eos # Seg Neutrophils % Seg Neuts % (Manual) Lymphocytes % (Manual) Monocytes % (Manual) Eosinophils % (Manual) Nucleated RBC % Seg Neutrophils # Seg Neutrophils # Man Lymphocytes # (Manual) Monocytes # (Manual) Eosinophils # (Manual) PT INR APTT Fibrinogen POC ABG pH ABG pH POC ABG pCO2 POC ABG pO2 ABG pO2 ABG HCO3 ABG O2 Saturation ABG Base Excess ABG Hemoglobin Oxyhemoglobin Sodium Potassium Chloride Carbon Dioxide BUN Creatinine Glucose POC Glucose 108 H 114 H 114 H Uric Acid Calcium Phosphorus Magnesium Iron TIBC AST ALT Total Creatine Kinase CK-MB (CK-2) Troponin T NT-Pro-B Natriuret Pep Total Protein Albumin Triglycerides HDL Cholesterol Folate Urine WBC (Auto) Urine Creatinine Urine Total Protein Vancomycin Trough 07/01/19 07/01/19 07/01/19 07:58 07:58 12:06 WBC 11.5 H RBC 3.24 L Hgb 9.0 L Hct 28.4 L MCV MCH MCHC RDW 20.8 H Plt Count Lymph % (Auto) 8.3 L [place] % (Auto) 10.0 H Eos % (Auto) Lymph # 0.9 L [place] # 1.2 H Eos # Seg Neutrophils % 79.4 H Seg Neuts % (Manual) Lymphocytes % (Manual) Monocytes % (Manual) Eosinophils % (Manual) Nucleated RBC % Seg Neutrophils # 9.1 H Seg Neutrophils # Man Lymphocytes # (Manual) Monocytes # (Manual) Eosinophils # (Manual) PT INR APTT Fibrinogen POC ABG pH ABG pH POC ABG pCO2 POC ABG pO2 ABG pO2 ABG HCO3 ABG O2 Saturation ABG Base Excess ABG Hemoglobin Oxyhemoglobin Sodium Potassium Chloride Carbon Dioxide BUN Creatinine 0.4 L Glucose 130 H POC Glucose 133 H Uric Acid Calcium Phosphorus Magnesium Iron TIBC AST ALT Total Creatine Kinase CK-MB (CK-2) Troponin T NT-Pro-B Natriuret Pep Total Protein Albumin Triglycerides HDL Cholesterol Folate Urine WBC (Auto) Urine Creatinine Urine Total Protein Vancomycin Trough 07/02/19 07/02/19 07/02/19 05:54 13:27 13:39 WBC RBC Hgb Hct MCV MCH MCHC RDW Plt Count Lymph % (Auto) [place] % (Auto) Eos % (Auto) Lymph # [place] # Eos # Seg Neutrophils % Seg Neuts % (Manual) Lymphocytes % (Manual) Monocytes % (Manual) Eosinophils % (Manual) Nucleated RBC % Seg Neutrophils # Seg Neutrophils # Man Lymphocytes # (Manual) Monocytes # (Manual) Eosinophils # (Manual) PT INR APTT Fibrinogen POC ABG pH ABG pH POC ABG pCO2 POC ABG pO2 ABG pO2 ABG HCO3 ABG O2 Saturation ABG Base Excess ABG Hemoglobin Oxyhemoglobin Sodium Potassium Chloride Carbon Dioxide BUN Creatinine Glucose POC Glucose 111 H 123 H 116 H Uric Acid Calcium Phosphorus Magnesium Iron TIBC AST ALT Total Creatine Kinase CK-MB (CK-2) Troponin T NT-Pro-B Natriuret Pep Total Protein Albumin Triglycerides HDL Cholesterol Folate Urine WBC (Auto) Urine Creatinine Urine Total Protein Vancomycin Trough 07/02/19 07/03/19 07/04/19 18:00 06:06 12:15 WBC RBC Hgb Hct MCV MCH MCHC RDW Plt Count Lymph % (Auto) [place] % (Auto) Eos % (Auto) Lymph # [place] # Eos # Seg Neutrophils % Seg Neuts % (Manual) Lymphocytes % (Manual) Monocytes % (Manual) Eosinophils % (Manual) Nucleated RBC % Seg Neutrophils # Seg Neutrophils # Man Lymphocytes # (Manual) Monocytes # (Manual) Eosinophils # (Manual) PT INR APTT Fibrinogen POC ABG pH ABG pH POC ABG pCO2 POC ABG pO2 ABG pO2 ABG HCO3 ABG O2 Saturation ABG Base Excess ABG Hemoglobin Oxyhemoglobin Sodium Potassium Chloride Carbon Dioxide BUN Creatinine Glucose POC Glucose 118 H 127 H 122 H Uric Acid Calcium Phosphorus Magnesium Iron TIBC AST ALT Total Creatine Kinase CK-MB (CK-2) Troponin T NT-Pro-B Natriuret Pep Total Protein Albumin Triglycerides HDL Cholesterol Folate Urine WBC (Auto) Urine Creatinine Urine Total Protein Vancomycin Trough 07/04/19 07/04/19 07/05/19 18:09 23:48 06:30 WBC RBC Hgb Hct MCV MCH MCHC RDW Plt Count Lymph % (Auto) [place] % (Auto) Eos % (Auto) Lymph # [place] # Eos # Seg Neutrophils % Seg Neuts % (Manual) Lymphocytes % (Manual) Monocytes % (Manual) Eosinophils % (Manual) Nucleated RBC % Seg Neutrophils # Seg Neutrophils # Man Lymphocytes # (Manual) Monocytes # (Manual) Eosinophils # (Manual) PT INR APTT Fibrinogen POC ABG pH ABG pH POC ABG pCO2 POC ABG pO2 ABG pO2 ABG HCO3 ABG O2 Saturation ABG Base Excess ABG Hemoglobin Oxyhemoglobin Sodium Potassium Chloride Carbon Dioxide BUN Creatinine Glucose POC Glucose 115 H 110 H 106 H Uric Acid Calcium Phosphorus Magnesium Iron TIBC AST ALT Total Creatine Kinase CK-MB (CK-2) Troponin T NT-Pro-B Natriuret Pep Total Protein Albumin Triglycerides HDL Cholesterol Folate Urine WBC (Auto) Urine Creatinine Urine Total Protein Vancomycin Trough 07/05/19 07/05/19 07/05/19 11:55 18:16 23:38 WBC RBC Hgb Hct MCV MCH MCHC RDW Plt Count Lymph % (Auto) [place] % (Auto) Eos % (Auto) Lymph # [place] # Eos # Seg Neutrophils % Seg Neuts % (Manual) Lymphocytes % (Manual) Monocytes % (Manual) Eosinophils % (Manual) Nucleated RBC % Seg Neutrophils # Seg Neutrophils # Man Lymphocytes # (Manual) Monocytes # (Manual) Eosinophils # (Manual) PT INR APTT Fibrinogen POC ABG pH ABG pH POC ABG pCO2 POC ABG pO2 ABG pO2 ABG HCO3 ABG O2 Saturation ABG Base Excess ABG Hemoglobin Oxyhemoglobin Sodium Potassium Chloride Carbon Dioxide BUN Creatinine Glucose POC Glucose 106 H 120 H 114 H Uric Acid Calcium Phosphorus Magnesium Iron TIBC AST ALT Total Creatine Kinase CK-MB (CK-2) Troponin T NT-Pro-B Natriuret Pep Total Protein Albumin Triglycerides HDL Cholesterol Folate Urine WBC (Auto) Urine Creatinine Urine Total Protein Vancomycin Trough 07/06/19 07/06/19 07/06/19 06:01 12:28 18:49 WBC RBC Hgb Hct MCV MCH MCHC RDW Plt Count Lymph % (Auto) [place] % (Auto) Eos % (Auto) Lymph # [place] # Eos # Seg Neutrophils % Seg Neuts % (Manual) Lymphocytes % (Manual) Monocytes % (Manual) Eosinophils % (Manual) Nucleated RBC % Seg Neutrophils # Seg Neutrophils # Man Lymphocytes # (Manual) Monocytes # (Manual) Eosinophils # (Manual) PT INR APTT Fibrinogen POC ABG pH ABG pH POC ABG pCO2 POC ABG pO2 ABG pO2 ABG HCO3 ABG O2 Saturation ABG Base Excess ABG Hemoglobin Oxyhemoglobin Sodium Potassium Chloride Carbon Dioxide BUN Creatinine Glucose POC Glucose 115 H 114 H 111 H Uric Acid Calcium Phosphorus Magnesium Iron TIBC AST ALT Total Creatine Kinase CK-MB (CK-2) Troponin T NT-Pro-B Natriuret Pep Total Protein Albumin Triglycerides HDL Cholesterol Folate Urine WBC (Auto) Urine Creatinine Urine Total Protein Vancomycin Trough 07/07/19 07/07/19 07/07/19 05:34 11:57 23:54 WBC RBC Hgb Hct MCV MCH MCHC RDW Plt Count Lymph % (Auto) [place] % (Auto) Eos % (Auto) Lymph # [place] # Eos # Seg Neutrophils % Seg Neuts % (Manual) Lymphocytes % (Manual) Monocytes % (Manual) Eosinophils % (Manual) Nucleated RBC % Seg Neutrophils # Seg Neutrophils # Man Lymphocytes # (Manual) Monocytes # (Manual) Eosinophils # (Manual) PT INR APTT Fibrinogen POC ABG pH ABG pH POC ABG pCO2 POC ABG pO2 ABG pO2 ABG HCO3 ABG O2 Saturation ABG Base Excess ABG Hemoglobin Oxyhemoglobin Sodium Potassium Chloride Carbon Dioxide BUN Creatinine Glucose POC Glucose 121 H 135 H 109 H Uric Acid Calcium Phosphorus Magnesium Iron TIBC AST ALT Total Creatine Kinase CK-MB (CK-2) Troponin T NT-Pro-B Natriuret Pep Total Protein Albumin Triglycerides HDL Cholesterol Folate Urine WBC (Auto) Urine Creatinine Urine Total Protein Vancomycin Trough 07/08/19 07/08/19 07/09/19 04:00 04:00 12:13 WBC RBC 3.30 L Hgb 9.3 L Hct 29.0 L MCV MCH MCHC RDW 19.9 H Plt Count Lymph % (Auto) [place] % (Auto) Eos % (Auto) Lymph # [place] # Eos # Seg Neutrophils % Seg Neuts % (Manual) 76.0 H Lymphocytes % (Manual) Monocytes % (Manual) Eosinophils % (Manual) Nucleated RBC % Seg Neutrophils # Seg Neutrophils # Man 8.4 H Lymphocytes # (Manual) Monocytes # (Manual) Eosinophils # (Manual) PT INR APTT Fibrinogen POC ABG pH ABG pH POC ABG pCO2 POC ABG pO2 ABG pO2 ABG HCO3 ABG O2 Saturation ABG Base Excess ABG Hemoglobin Oxyhemoglobin Sodium Potassium Chloride Carbon Dioxide BUN Creatinine 0.5 L Glucose 117 H POC Glucose 111 H Uric Acid Calcium Phosphorus Magnesium Iron TIBC AST ALT Total Creatine Kinase CK-MB (CK-2) Troponin T NT-Pro-B Natriuret Pep Total Protein Albumin Triglycerides HDL Cholesterol Folate Urine WBC (Auto) Urine Creatinine Urine Total Protein Vancomycin Trough 07/10/19 07/10/19 07/10/19 05:28 12:22 17:19 WBC RBC Hgb Hct MCV MCH MCHC RDW Plt Count Lymph % (Auto) [place] % (Auto) Eos % (Auto) Lymph # [place] # Eos # Seg Neutrophils % Seg Neuts % (Manual) Lymphocytes % (Manual) Monocytes % (Manual) Eosinophils % (Manual) Nucleated RBC % Seg Neutrophils # Seg Neutrophils # Man Lymphocytes # (Manual) Monocytes # (Manual) Eosinophils # (Manual) PT INR APTT Fibrinogen POC ABG pH ABG pH POC ABG pCO2 POC ABG pO2 ABG pO2 ABG HCO3 ABG O2 Saturation ABG Base Excess ABG Hemoglobin Oxyhemoglobin Sodium Potassium Chloride Carbon Dioxide BUN Creatinine Glucose POC Glucose 114 H 113 H 115 H Uric Acid Calcium Phosphorus Magnesium Iron TIBC AST ALT Total Creatine Kinase CK-MB (CK-2) Troponin T NT-Pro-B Natriuret Pep Total Protein Albumin Triglycerides HDL Cholesterol Folate Urine WBC (Auto) Urine Creatinine Urine Total Protein Vancomycin Trough 07/11/19 07/11/19 07/11/19 05:27 06:08 06:08 WBC 12.6 H RBC 3.26 L Hgb 9.2 L Hct 28.6 L MCV MCH MCHC RDW 19.6 H Plt Count Lymph % (Auto) [place] % (Auto) Eos % (Auto) Lymph # [place] # Eos # Seg Neutrophils % Seg Neuts % (Manual) Lymphocytes % (Manual) Monocytes % (Manual) Eosinophils % (Manual) Nucleated RBC % Seg Neutrophils # Seg Neutrophils # Man Lymphocytes # (Manual) Monocytes # (Manual) Eosinophils # (Manual) PT INR APTT Fibrinogen POC ABG pH ABG pH POC ABG pCO2 POC ABG pO2 ABG pO2 ABG HCO3 ABG O2 Saturation ABG Base Excess ABG Hemoglobin Oxyhemoglobin Sodium Potassium Chloride Carbon Dioxide 17 L D BUN Creatinine Glucose 117 H POC Glucose 114 H Uric Acid Calcium Phosphorus Magnesium Iron TIBC AST ALT Total Creatine Kinase CK-MB (CK-2) Troponin T NT-Pro-B Natriuret Pep Total Protein Albumin Triglycerides HDL Cholesterol Folate Urine WBC (Auto) Urine Creatinine Urine Total Protein Vancomycin Trough 07/12/19 07/13/19 07/13/19 18:33 03:55 03:55 WBC 11.4 H RBC 3.18 L Hgb 8.8 L Hct 27.4 L MCV MCH MCHC RDW 19.1 H Plt Count Lymph % (Auto) [place] % (Auto) Eos % (Auto) Lymph # [place] # Eos # Seg Neutrophils % Seg Neuts % (Manual) Lymphocytes % (Manual) Monocytes % (Manual) Eosinophils % (Manual) Nucleated RBC % Seg Neutrophils # Seg Neutrophils # Man Lymphocytes # (Manual) Monocytes # (Manual) Eosinophils # (Manual) PT INR APTT Fibrinogen POC ABG pH ABG pH POC ABG pCO2 POC ABG pO2 ABG pO2 ABG HCO3 ABG O2 Saturation ABG Base Excess ABG Hemoglobin Oxyhemoglobin Sodium Potassium Chloride 97.4 L Carbon Dioxide BUN Creatinine 0.5 L Glucose 121 H POC Glucose 106 H Uric Acid Calcium Phosphorus Magnesium Iron TIBC AST ALT Total Creatine Kinase CK-MB (CK-2) Troponin T NT-Pro-B Natriuret Pep Total Protein Albumin Triglycerides HDL Cholesterol Folate Urine WBC (Auto) Urine Creatinine Urine Total Protein Vancomycin Trough 07/13/19 07/13/19 07/14/19 05:08 11:52 11:50 WBC RBC Hgb Hct MCV MCH MCHC RDW Plt Count Lymph % (Auto) [place] % (Auto) Eos % (Auto) Lymph # [place] # Eos # Seg Neutrophils % Seg Neuts % (Manual) Lymphocytes % (Manual) Monocytes % (Manual) Eosinophils % (Manual) Nucleated RBC % Seg Neutrophils # Seg Neutrophils # Man Lymphocytes # (Manual) Monocytes # (Manual) Eosinophils # (Manual) PT INR APTT Fibrinogen POC ABG pH ABG pH POC ABG pCO2 POC ABG pO2 ABG pO2 ABG HCO3 ABG O2 Saturation ABG Base Excess ABG Hemoglobin Oxyhemoglobin Sodium Potassium Chloride Carbon Dioxide BUN Creatinine Glucose POC Glucose 107 H 120 H 125 H Uric Acid Calcium Phosphorus Magnesium Iron TIBC AST ALT Total Creatine Kinase CK-MB (CK-2) Troponin T NT-Pro-B Natriuret Pep Total Protein Albumin Triglycerides HDL Cholesterol Folate Urine WBC (Auto) Urine Creatinine Urine Total Protein Vancomycin Trough 07/14/19 07/15/19 07/15/19 15:52 00:21 05:50 WBC RBC Hgb Hct MCV MCH MCHC RDW Plt Count Lymph % (Auto) [place] % (Auto) Eos % (Auto) Lymph # [place] # Eos # Seg Neutrophils % Seg Neuts % (Manual) Lymphocytes % (Manual) Monocytes % (Manual) Eosinophils % (Manual) Nucleated RBC % Seg Neutrophils # Seg Neutrophils # Man Lymphocytes # (Manual) Monocytes # (Manual) Eosinophils # (Manual) PT INR APTT Fibrinogen POC ABG pH ABG pH POC ABG pCO2 POC ABG pO2 ABG pO2 ABG HCO3 ABG O2 Saturation ABG Base Excess ABG Hemoglobin Oxyhemoglobin Sodium Potassium Chloride Carbon Dioxide BUN Creatinine Glucose POC Glucose 118 H 108 H 123 H Uric Acid Calcium Phosphorus Magnesium Iron TIBC AST ALT Total Creatine Kinase CK-MB (CK-2) Troponin T NT-Pro-B Natriuret Pep Total Protein Albumin Triglycerides HDL Cholesterol Folate Urine WBC (Auto) Urine Creatinine Urine Total Protein Vancomycin Trough 07/15/19 07/15/19 07/15/19 11:38 16:33 17:36 WBC RBC Hgb Hct MCV MCH MCHC RDW Plt Count Lymph % (Auto) [place] % (Auto) Eos % (Auto) Lymph # [place] # Eos # Seg Neutrophils % Seg Neuts % (Manual) Lymphocytes % (Manual) Monocytes % (Manual) Eosinophils % (Manual) Nucleated RBC % Seg Neutrophils # Seg Neutrophils # Man Lymphocytes # (Manual) Monocytes # (Manual) Eosinophils # (Manual) PT INR APTT Fibrinogen POC ABG pH ABG pH POC ABG pCO2 POC ABG pO2 ABG pO2 ABG HCO3 ABG O2 Saturation ABG Base Excess ABG Hemoglobin Oxyhemoglobin Sodium Potassium Chloride Carbon Dioxide BUN Creatinine Glucose POC Glucose 114 H 115 H 132 H Uric Acid Calcium Phosphorus Magnesium Iron TIBC AST ALT Total Creatine Kinase CK-MB (CK-2) Troponin T NT-Pro-B Natriuret Pep Total Protein Albumin Triglycerides HDL Cholesterol Folate Urine WBC (Auto) Urine Creatinine Urine Total Protein Vancomycin Trough 07/16/19 07/16/19 07/17/19 12:33 18:57 11:53 WBC RBC Hgb Hct MCV MCH MCHC RDW Plt Count Lymph % (Auto) [place] % (Auto) Eos % (Auto) Lymph # [place] # Eos # Seg Neutrophils % Seg Neuts % (Manual) Lymphocytes % (Manual) Monocytes % (Manual) Eosinophils % (Manual) Nucleated RBC % Seg Neutrophils # Seg Neutrophils # Man Lymphocytes # (Manual) Monocytes # (Manual) Eosinophils # (Manual) PT INR APTT Fibrinogen POC ABG pH ABG pH POC ABG pCO2 POC ABG pO2 ABG pO2 ABG HCO3 ABG O2 Saturation ABG Base Excess ABG Hemoglobin Oxyhemoglobin Sodium Potassium Chloride Carbon Dioxide BUN Creatinine Glucose POC Glucose 113 H 65 L 113 H Uric Acid Calcium Phosphorus Magnesium Iron TIBC AST ALT Total Creatine Kinase CK-MB (CK-2) Troponin T NT-Pro-B Natriuret Pep Total Protein Albumin Triglycerides HDL Cholesterol Folate Urine WBC (Auto) Urine Creatinine Urine Total Protein Vancomycin Trough 07/17/19 07/18/19 07/18/19 17:42 06:24 17:03 WBC RBC Hgb Hct MCV MCH MCHC RDW Plt Count Lymph % (Auto) [place] % (Auto) Eos % (Auto) Lymph # [place] # Eos # Seg Neutrophils % Seg Neuts % (Manual) Lymphocytes % (Manual) Monocytes % (Manual) Eosinophils % (Manual) Nucleated RBC % Seg Neutrophils # Seg Neutrophils # Man Lymphocytes # (Manual) Monocytes # (Manual) Eosinophils # (Manual) PT INR APTT Fibrinogen POC ABG pH ABG pH POC ABG pCO2 POC ABG pO2 ABG pO2 ABG HCO3 ABG O2 Saturation ABG Base Excess ABG Hemoglobin Oxyhemoglobin Sodium Potassium Chloride Carbon Dioxide BUN Creatinine Glucose POC Glucose 111 H 107 H 117 H Uric Acid Calcium Phosphorus Magnesium Iron TIBC AST ALT Total Creatine Kinase CK-MB (CK-2) Troponin T NT-Pro-B Natriuret Pep Total Protein Albumin Triglycerides HDL Cholesterol Folate Urine WBC (Auto) Urine Creatinine Urine Total Protein Vancomycin Trough 07/19/19 07/20/19 07/20/19 12:24 04:33 04:33 WBC 12.3 H RBC Hgb 11.0 L Hct 33.9 L MCV MCH MCHC RDW 19.6 H Plt Count Lymph % (Auto) [place] % (Auto) Eos % (Auto) Lymph # [place] # Eos # Seg Neutrophils % 70.8 H Seg Neuts % (Manual) Lymphocytes % (Manual) Monocytes % (Manual) Eosinophils % (Manual) Nucleated RBC % Seg Neutrophils # 8.7 H Seg Neutrophils # Man Lymphocytes # (Manual) Monocytes # (Manual) Eosinophils # (Manual) PT INR APTT Fibrinogen POC ABG pH ABG pH POC ABG pCO2 POC ABG pO2 ABG pO2 ABG HCO3 ABG O2 Saturation ABG Base Excess ABG Hemoglobin Oxyhemoglobin Sodium Potassium Chloride Carbon Dioxide 20 L BUN Creatinine 0.5 L Glucose 116 H POC Glucose 110 H Uric Acid Calcium Phosphorus Magnesium Iron TIBC AST ALT Total Creatine Kinase CK-MB (CK-2) Troponin T NT-Pro-B Natriuret Pep Total Protein Albumin Triglycerides HDL Cholesterol Folate Urine WBC (Auto) Urine Creatinine Urine Total Protein Vancomycin Trough 07/20/19 07/20/19 07/21/19 12:17 23:49 05:34 WBC RBC Hgb Hct MCV MCH MCHC RDW Plt Count Lymph % (Auto) [place] % (Auto) Eos % (Auto) Lymph # [place] # Eos # Seg Neutrophils % Seg Neuts % (Manual) Lymphocytes % (Manual) Monocytes % (Manual) Eosinophils % (Manual) Nucleated RBC % Seg Neutrophils # Seg Neutrophils # Man Lymphocytes # (Manual) Monocytes # (Manual) Eosinophils # (Manual) PT INR APTT Fibrinogen POC ABG pH ABG pH POC ABG pCO2 POC ABG pO2 ABG pO2 ABG HCO3 ABG O2 Saturation ABG Base Excess ABG Hemoglobin Oxyhemoglobin Sodium Potassium Chloride Carbon Dioxide BUN Creatinine Glucose POC Glucose 117 H 108 H 116 H Uric Acid Calcium Phosphorus Magnesium Iron TIBC AST ALT Total Creatine Kinase CK-MB (CK-2) Troponin T NT-Pro-B Natriuret Pep Total Protein Albumin Triglycerides HDL Cholesterol Folate Urine WBC (Auto) Urine Creatinine Urine Total Protein Vancomycin Trough 07/23/19 07/23/19 07/23/19 05:28 05:28 06:25 WBC RBC 3.41 L Hgb 9.6 L Hct 29.7 L MCV MCH MCHC RDW 19.1 H Plt Count Lymph % (Auto) [place] % (Auto) Eos % (Auto) Lymph # [place] # Eos # Seg Neutrophils % Seg Neuts % (Manual) Lymphocytes % (Manual) Monocytes % (Manual) Eosinophils % (Manual) Nucleated RBC % Seg Neutrophils # Seg Neutrophils # Man Lymphocytes # (Manual) Monocytes # (Manual) Eosinophils # (Manual) PT INR APTT Fibrinogen POC ABG pH ABG pH POC ABG pCO2 POC ABG pO2 ABG pO2 ABG HCO3 ABG O2 Saturation ABG Base Excess ABG Hemoglobin Oxyhemoglobin Sodium Potassium Chloride Carbon Dioxide BUN 8 L Creatinine 0.5 L Glucose POC Glucose 135 H Uric Acid Calcium Phosphorus Magnesium Iron TIBC AST ALT Total Creatine Kinase CK-MB (CK-2) Troponin T NT-Pro-B Natriuret Pep Total Protein Albumin Triglycerides HDL Cholesterol Folate Urine WBC (Auto) Urine Creatinine Urine Total Protein Vancomycin Trough 07/23/19 07/23/19 07/24/19 14:26 16:25 00:45 WBC RBC Hgb Hct MCV MCH MCHC RDW Plt Count Lymph % (Auto) [place] % (Auto) Eos % (Auto) Lymph # [place] # Eos # Seg Neutrophils % Seg Neuts % (Manual) Lymphocytes % (Manual) Monocytes % (Manual) Eosinophils % (Manual) Nucleated RBC % Seg Neutrophils # Seg Neutrophils # Man Lymphocytes # (Manual) Monocytes # (Manual) Eosinophils # (Manual) PT INR APTT Fibrinogen POC ABG pH ABG pH POC ABG pCO2 POC ABG pO2 ABG pO2 ABG HCO3 ABG O2 Saturation ABG Base Excess ABG Hemoglobin Oxyhemoglobin Sodium Potassium Chloride Carbon Dioxide BUN Creatinine Glucose POC Glucose 121 H 115 H 125 H Uric Acid Calcium Phosphorus Magnesium Iron TIBC AST ALT Total Creatine Kinase CK-MB (CK-2) Troponin T NT-Pro-B Natriuret Pep Total Protein Albumin Triglycerides HDL Cholesterol Folate Urine WBC (Auto) Urine Creatinine Urine Total Protein Vancomycin Trough 07/24/19 07/25/19 07/25/19 11:33 08:32 11:54 WBC RBC Hgb Hct MCV MCH MCHC RDW Plt Count Lymph % (Auto) [place] % (Auto) Eos % (Auto) Lymph # [place] # Eos # Seg Neutrophils % Seg Neuts % (Manual) Lymphocytes % (Manual) Monocytes % (Manual) Eosinophils % (Manual) Nucleated RBC % Seg Neutrophils # Seg Neutrophils # Man Lymphocytes # (Manual) Monocytes # (Manual) Eosinophils # (Manual) PT INR APTT Fibrinogen POC ABG pH ABG pH POC ABG pCO2 POC ABG pO2 ABG pO2 ABG HCO3 ABG O2 Saturation ABG Base Excess ABG Hemoglobin Oxyhemoglobin Sodium Potassium Chloride Carbon Dioxide BUN Creatinine Glucose POC Glucose 130 H 110 H 136 H Uric Acid Calcium Phosphorus Magnesium Iron TIBC AST ALT Total Creatine Kinase CK-MB (CK-2) Troponin T NT-Pro-B Natriuret Pep Total Protein Albumin Triglycerides HDL Cholesterol Folate Urine WBC (Auto) Urine Creatinine Urine Total Protein Vancomycin Trough 07/25/19 07/26/19 07/26/19 18:10 05:53 12:17 WBC RBC Hgb Hct MCV MCH MCHC RDW Plt Count Lymph % (Auto) [place] % (Auto) Eos % (Auto) Lymph # [place] # Eos # Seg Neutrophils % Seg Neuts % (Manual) Lymphocytes % (Manual) Monocytes % (Manual) Eosinophils % (Manual) Nucleated RBC % Seg Neutrophils # Seg Neutrophils # Man Lymphocytes # (Manual) Monocytes # (Manual) Eosinophils # (Manual) PT INR APTT Fibrinogen POC ABG pH ABG pH POC ABG pCO2 POC ABG pO2 ABG pO2 ABG HCO3 ABG O2 Saturation ABG Base Excess ABG Hemoglobin Oxyhemoglobin Sodium Potassium Chloride Carbon Dioxide BUN Creatinine Glucose POC Glucose 117 H 107 H 140 H Uric Acid Calcium Phosphorus Magnesium Iron TIBC AST ALT Total Creatine Kinase CK-MB (CK-2) Troponin T NT-Pro-B Natriuret Pep Total Protein Albumin Triglycerides HDL Cholesterol Folate Urine WBC (Auto) Urine Creatinine Urine Total Protein Vancomycin Trough 07/26/19 07/27/19 16:59 00:33 WBC RBC Hgb Hct MCV MCH MCHC RDW Plt Count Lymph % (Auto) [place] % (Auto) Eos % (Auto) Lymph # [place] # Eos # Seg Neutrophils % Seg Neuts % (Manual) Lymphocytes % (Manual) Monocytes % (Manual) Eosinophils % (Manual) Nucleated RBC % Seg Neutrophils # Seg Neutrophils # Man Lymphocytes # (Manual) Monocytes # (Manual) Eosinophils # (Manual) PT INR APTT Fibrinogen POC ABG pH ABG pH POC ABG pCO2 POC ABG pO2 ABG pO2 ABG HCO3 ABG O2 Saturation ABG Base Excess ABG Hemoglobin Oxyhemoglobin Sodium Potassium Chloride Carbon Dioxide BUN Creatinine Glucose POC Glucose 129 H 110 H Uric Acid Calcium Phosphorus Magnesium Iron TIBC AST ALT Total Creatine Kinase CK-MB (CK-2) Troponin T NT-Pro-B Natriuret Pep Total Protein Albumin Triglycerides HDL Cholesterol Folate Urine WBC (Auto) Urine Creatinine Urine Total Protein Vancomycin Trough
[2019-07-27 08:17] LABS: Hematocrit 29.3 % (35.5-45.6); Hemoglobin 9.4 gm/dl (11.8-15.2); Mean Corpuscular HGB Conc 32 % (32-34); Mean Corpuscular Volume 88 fl (84-94); Platelet Count 341 K/mm3 (140-440); Red Blood Count 3.35 M/mm3 (3.65-5.03); Red Cell Distribution Width 18.2 % (13.2-15.2)
[2019-07-27 08:39] LABS: BUN/Creatinine Ratio 18; Blood Urea Nitrogen 9 mg/dL (9-20); Calcium 9.5 mg/dL (8.4-10.2); Hemolysis Index 15
[2019-07-27] MEDS: FAMOTIDINE 20 MG TAB PO SCH ×2 (09:25→21:25)
[2019-07-27] MEDS: hydroCHLOROthiazide 25 MG TAB PO SCH (09:25)
[2019-07-27] MEDS: MULTIVITAMINS 5 ML ORAL LIQUID PO SCH (09:25)
[2019-07-27] MEDS: APIXABAN 2.5 MG TAB PO SCH ×2 (09:25→21:25)
[2019-07-27] MEDS: FERROUS SULFATE 308 MG (62mg Elemental Iron) / 7 ML ELIXIR PO SCH (09:25)
[2019-07-27] MEDS: SCOPOLAMINE TRANSDERMAL PATCH 72 HR TD SCH (09:25)
[2019-07-27] MEDS: amLODIPine 10 MG TAB PO SCH (09:26)
--- NOTE | 2019-07-27 12:57 | Progress Note ---
Assessment and Plan Assessment and plan: Acute respiratory failure; tracheostomy dependent cont trach care, scheduled nebulizers Pulmonary following Obesity hypoventilation syndrome titrate O2 sats to more than 90% Status post cardiac arrest mild anoxic brain injury EEG was negative for seizures and neurology evaluated Oral pharyngeal dysphagia continue tube feeds Anemia of chronic disease Closely monitor H&H and transfuse as needed. 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 Now Patient is on Eliquis Acute kidney injury due to ATN Initially requiring dialysis Resolved, nephrology following. 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 I discussed with case briefer discharge planning and continue discussions with family. History Interval history: No new issues overnight. Hospitalist Physical - Constitutional Vitals: Temp Pulse Resp BP Pulse Ox 99 F 101 H 17 132/76 97 07/27/19 05:00 07/27/19 10:00 07/27/19 10:00 07/27/19 09:26 07/27/19 10:00 General appearance: Present: no acute distress, obese - EENT Eyes: Present: PERRL, EOM intact ENT: hearing intact, clear oral mucosa, dentition normal - Neck Neck: Present: supple, normal ROM - Respiratory Respiratory effort: normal Respiratory: bilateral: CTA - Cardiovascular Rhythm: regular Heart Sounds: Present: S1 & S2. Absent: gallop, rub - Extremities Extremities: no ischemia, No edema, Full ROM - Abdominal General gastrointestinal: soft, non-tender, non-distended, normal bowel sounds - Integumentary Integumentary: Present: clear, warm, dry - Neurologic Neurologic: CNII-XII intact, moves all extremities Results - Labs CBC & Chem 7: 07/27/19 08:00 07/27/19 08:00 Labs: Laboratory Last Values WBC 12.0 K/mm3 (4.5-11.0) H 07/27/19 08:00 RBC 3.35 M/mm3 (3.65-5.03) L 07/27/19 08:00 Hgb 9.4 gm/dl (11.8-15.2) L 07/27/19 08:00 Hct 29.3 % (35.5-45.6) L 07/27/19 08:00 MCV 88 fl (84-94) 07/27/19 08:00 MCH 28 pg (28-32) 07/27/19 08:00 MCHC 32 % (32-34) 07/27/19 08:00 RDW 18.2 % (13.2-15.2) H 07/27/19 08:00 Plt Count 341 K/mm3 (140-440) 07/27/19 08:00 Lymph % (Auto) 19.2 % (13.4-35.0) 07/20/19 04:33 [place] % (Auto) 6.1 % (0.0-7.3) 07/20/19 04:33 Eos % (Auto) 2.8 % (0.0-4.3) 07/20/19 04:33 Baso % (Auto) 1.1 % (0.0-1.8) 07/20/19 04:33 Lymph # 2.4 K/mm3 (1.2-5.4) 07/20/19 04:33 [place] # 0.8 K/mm3 (0.0-0.8) 07/20/19 04:33 Eos # 0.3 K/mm3 (0.0-0.4) 07/20/19 04:33 Baso # 0.1 K/mm3 (0.0-0.1) 07/20/19 04:33 Add Manual Diff Complete 07/08/19 04:00 Total Counted 100 07/08/19 04:00 Seg Neutrophils % 70.8 % (40.0-70.0) H 07/20/19 04:33 Seg Neuts % (Manual) 76.0 % (40.0-70.0) H 07/08/19 04:00 Band Neutrophils % 0 % 07/08/19 04:00 Lymphocytes % (Manual) 16.0 % (13.4-35.0) 07/08/19 04:00 Reactive Lymphs % (Man) 0 % 07/08/19 04:00 Monocytes % (Manual) 6.0 % (0.0-7.3) 07/08/19 04:00 Eosinophils % (Manual) 2.0 % (0.0-4.3) 07/08/19 04:00 Basophils % (Manual) 0 % (0.0-1.8) 07/08/19 04:00 Metamyelocytes % 0 % 07/08/19 04:00 Myelocytes % 0 % 07/08/19 04:00 Promyelocytes % 0 % 07/08/19 04:00 Blast Cells % 0 % 07/08/19 04:00 Nucleated RBC % Not Reportable 07/08/19 04:00 Seg Neutrophils # 8.7 K/mm3 (1.8-7.7) H 07/20/19 04:33 Seg Neutrophils # Man 8.4 K/mm3 (1.8-7.7) H 07/08/19 04:00 Band Neutrophils # 0.0 K/mm3 07/08/19 04:00 Lymphocytes # (Manual) 1.8 K/mm3 (1.2-5.4) 07/08/19 04:00 Abs React Lymphs (Man) 0.0 K/mm3 07/08/19 04:00 Monocytes # (Manual) 0.7 K/mm3 (0.0-0.8) 07/08/19 04:00 Eosinophils # (Manual) 0.2 K/mm3 (0.0-0.4) 07/08/19 04:00 Basophils # (Manual) 0.0 K/mm3 (0.0-0.1) 07/08/19 04:00 Metamyelocytes # 0.0 K/mm3 07/08/19 04:00 Myelocytes # 0.0 K/mm3 07/08/19 04:00 Promyelocytes # 0.0 K/mm3 07/08/19 04:00 Blast Cells # 0.0 K/mm3 07/08/19 04:00 WBC Morphology Not Reportable 07/08/19 04:00 Hypersegmented Neuts Not Reportable 07/08/19 04:00 Hyposegmented Neuts Not Reportable 07/08/19 04:00 Hypogranular Neuts Not Reportable 07/08/19 04:00 Smudge Cells Not Reportable 07/08/19 04:00 Toxic Granulation Not Reportable 07/08/19 04:00 Toxic Vacuolation Not Reportable 07/08/19 04:00 Dohle Bodies Not Reportable 07/08/19 04:00 Pelger-Huet Anomaly Not Reportable 07/08/19 04:00 Renea Rods Not Reportable 07/08/19 04:00 Platelet Estimate Consistent w auto 07/08/19 04:00 Clumped Platelets Not Reportable 07/08/19 04:00 Plt Clumps, EDTA Not Reportable 07/08/19 04:00 Large Platelets Not Reportable 07/08/19 04:00 Giant Platelets Not Reportable 07/08/19 04:00 Platelet Satelliting Not Reportable 07/08/19 04:00 Plt Morphology Comment Not Reportable 07/08/19 04:00 RBC Morphology Not Reportable 07/08/19 04:00 Dimorphic RBCs Not Reportable 07/08/19 04:00 Polychromasia Not Reportable 07/08/19 04:00 Hypochromasia Not Reportable 07/08/19 04:00 Poikilocytosis Not Reportable 07/08/19 04:00 Anisocytosis 1+ 07/08/19 04:00 Microcytosis Not Reportable 07/08/19 04:00 Macrocytosis Not Reportable 07/08/19 04:00 Spherocytes Not Reportable 07/08/19 04:00 Pappenheimer Bodies Not Reportable 07/08/19 04:00 Sickle Cells Not Reportable 07/08/19 04:00 Target Cells Not Reportable 07/08/19 04:00 Tear Drop Cells Not Reportable 07/08/19 04:00 Ovalocytes Not Reportable 07/08/19 04:00 Stomatocytes 3+ 06/23/19 05:24 Helmet Cells Not Reportable 07/08/19 04:00 [place] Bodies Not Reportable 07/08/19 04:00 [place] Rings Not Reportable 07/08/19 04:00 [place] Cells Not Reportable 07/08/19 04:00 Bite Cells Not Reportable 07/08/19 04:00 Crenated Cell Not Reportable 07/08/19 04:00 Elliptocytes Not Reportable 07/08/19 04:00 Acanthocytes (Spur) Not Reportable 07/08/19 04:00 Rouleaux Not Reportable 07/08/19 04:00 Hemoglobin C Crystals Not Reportable 07/08/19 04:00 Schistocytes Not Reportable 07/08/19 04:00 Malaria parasites Not Reportable 07/08/19 04:00 Syed Bodies Not Reportable 07/08/19 04:00 Hem Pathologist Commnt No 07/08/19 04:00 PT 15.4 Sec. (12.2-14.9) H 05/01/19 Unknown INR 1.23 (0.87-1.13) H 05/01/19 Unknown APTT 22.7 Sec. (24.2-36.6) L 05/01/19 Unknown Fibrinogen 194 mg/dl (211-480) L 06/17/19 12:45 Heparin Anti-Xa, Unfract Negative (Negative) 06/17/19 12:45 POC ABG pH 7.462 (7.35-7.45) H 06/05/19 03:52 ABG pH 7.469 pH Units (7.350-7.450) H 06/23/19 02:00 POC ABG pCO2 39.8 (35-45) 06/05/19 03:52 ABG pCO2 39.4 mm Hg 06/23/19 02:00 POC ABG pO2 86 (80-105) 06/05/19 03:52 ABG pO2 58.7 mm Hg (80.0-90.0) L 06/23/19 02:00 POC ABG HCO3 28.4 (22-26 mml/L) 06/05/19 03:52 ABG HCO3 28.0 mmol/L (20.0-26.0) H 06/23/19 02:00 POC ABG Total CO2 30 (23-27mmol/L) 06/05/19 03:52 POC ABG O2 Sat 97 06/05/19 03:52 ABG O2 Saturation 94.6 % (95.0-99.0) L 06/23/19 02:00 ABG O2 Content 9.2 (0.0-44) 06/23/19 02:00 POC ABG Base Excess 5 ((-2) - (+3)mmol/L) 06/05/19 03:52 ABG Base Excess 4.0 mmol/L (-2.0-3.0) H 06/23/19 02:00 ABG Hemoglobin 7.1 gm/dl (14.0-18.0) L 06/23/19 02:00 ABG Carboxyhemoglobin 2.0 % (0.0-5.0) 06/23/19 02:00 ABG Methemoglobin 0.5 % (0.0-1.5) 06/23/19 02:00 Oxyhemoglobin 92.2 % (95.0-99.0) L 06/23/19 02:00 FiO2 30 % 06/23/19 02:00 Sodium 140 mmol/L (137-145) 07/27/19 08:00 Potassium 4.1 mmol/L (3.6-5.0) 07/27/19 08:00 Chloride 97.7 mmol/L (98-107) L 07/27/19 08:00 Carbon Dioxide 24 mmol/L (22-30) 07/27/19 08:00 Anion Gap 22 mmol/L 07/27/19 08:00 BUN 9 mg/dL (9-20) 07/27/19 08:00 Creatinine 0.5 mg/dL (0.8-1.5) L 07/27/19 08:00 Estimated GFR > 60 ml/min 07/27/19 08:00 BUN/Creatinine Ratio 18 % 07/27/19 08:00 Glucose 117 mg/dL (75-100) H 07/27/19 08:00 POC Glucose 86 (70-105) 07/27/19 11:54 Osmolality 327 Mosm/kg 05/07/19 13:45 Uric Acid 18.0 mg/dL (3.5-7.6) H 05/07/19 13:45 Calcium 9.5 mg/dL (8.4-10.2) 07/27/19 08:00 Phosphorus 3.70 mg/dL (2.5-4.5) 06/10/19 05:45 Magnesium 1.60 mg/dL (1.7-2.3) L 06/26/19 04:43 Iron 45 ug/dL (49-181) L 06/20/19 09:12 TIBC 110 mcg/dL (250-450) L 06/20/19 09:12 Ferritin 315.2 ng/mL (13.0-400.0) 06/20/19 09:12 Total Bilirubin 0.50 mg/dL (0.1-1.2) 06/08/19 04:20 AST 23 units/L (5-40) 06/08/19 04:20 ALT 66 units/L (7-56) H 06/08/19 04:20 Alkaline Phosphatase 59 units/L (35-129) 06/08/19 04:20 Total Creatine Kinase 131 units/L (55-170) 05/02/19 04:41 CK-MB (CK-2) 5.2 ng/mL (0.0-4.0) H 05/02/19 04:41 CK-MB (CK-2) Rel Index 3.9 (0-4) 05/02/19 04:41 Troponin T 0.067 ng/mL (0.00-0.029) H D 05/02/19 04:41 NT-Pro-B Natriuret Pep 6831 pg/mL (0-450) H 05/01/19 Unknown Total Protein 5.5 g/dL (6.3-8.2) L 06/08/19 04:20 Albumin 2.9 g/dL (3.9-5) L 06/08/19 04:20 Albumin/Globulin Ratio 1.1 % 06/08/19 04:20 Triglycerides 210 mg/dL (2-149) H 06/19/19 04:30 Cholesterol 173 mg/dL (50-199) 05/02/19 00:06 LDL Cholesterol Direct 126 mg/dL (50-130) 05/02/19 00:06 HDL Cholesterol 18 mg/dL (40-59) L 05/02/19 00:06 Cholesterol/HDL Ratio 9.61 % 05/02/19 00:06 Serotonin Release Assay See scanned results 06/17/19 12:45 Vitamin B12 353.0 pg/mL (211-911) 06/20/19 09:12 Folate 7.01 ng/mL (7.3-26.0) L 06/20/19 09:12 Procalcitonin 0.05 ng/mL (<0.15) 06/17/19 12:45 Urine Color Yellow (Yellow) 06/17/19 12:45 Urine Turbidity Slightly-cloudy (Clear) 06/17/19 12:45 Urine pH 5.0 (5.0-7.0) 06/17/19 12:45 Ur Specific [place] 1.013 (1.003-1.030) 06/17/19 12:45 Urine Protein <15 mg/dl mg/dL (Negative) 06/17/19 12:45 Urine Glucose (UA) Neg mg/dL (Negative) 06/17/19 12:45 Urine Ketones Neg mg/dL (Negative) 06/17/19 12:45 Urine Blood Sm (Negative) 06/17/19 12:45 Urine Nitrite Neg (Negative) 06/17/19 12:45 Urine Bilirubin Neg (Negative) 06/17/19 12:45 Urine Urobilinogen < 2.0 mg/dL (<2.0) 06/17/19 12:45 Ur Leukocyte Esterase Neg (Negative) 06/17/19 12:45 Urine WBC (Auto) 2.0 /HPF (0.0-6.0) 06/17/19 12:45 Urine RBC (Auto) 2.0 /HPF (0.0-6.0) 06/17/19 12:45 U Epithel Cells (Auto) < 1.0 /HPF (0-13.0) 06/17/19 12:45 Urine Bacteria (Auto) 1+ /HPF (Negative) 05/20/19 12:00 Uric Acid Crystals 3+ 05/03/19 10:55 Urine Mucus Few /HPF 06/17/19 12:45 Urine Yeast (Budding) 3+ /HPF 05/20/19 12:00 Urine Creatinine 292.8 mg/dL (0.1-20.0) H 05/07/19 22:40 Urine Sodium 11 mmol/L 05/07/19 22:40 Urine Total Protein 269 mg/dL (5-11.8) H 05/07/19 22:40 Vancomycin Trough 20.5 ug/mL (5.0-20.0) H 05/15/19 09:00 Random Vancomycin 11.5 ug/mL (0-40.0) 05/27/19 06:00 AMNA Screen Negative (Negative) 05/07/19 13:45 Heparin-induced Plt Ab Negative (Negative) 06/17/19 12:45 UF Heparin High Dose 13 % Release 06/17/19 12:45 YUNG UFH Low Dose 0.1 8 % Release 06/17/19 12:45 YUNG UFH Low Dose 0.5 7 % Release 06/17/19 12:45 Hepatitis A IgM Ab Non-reactive (NonReactive) 05/07/19 13:45 Hep Bs Antigen Non-reactive (Negative) 05/07/19 13:45 Hep B Core IgM Ab Non-reactive (NonReactive) 05/07/19 13:45 Hepatitis C Antibody Non-reactive (NonReactive) 05/07/19 13:45 Influenza A (Rapid) Negative (Negative) 06/17/19 11:35 Influenza B (Rapid) Negative (Negative) 06/17/19 11:35 Active Medications - Current Medications Current Medications: Generic Name Dose Route Start Last Admin Trade Name Freq PRN Reason Stop Dose Admin Acetaminophen 650 mg 07/02/19 23:56 07/25/19 10:50 Tylenol PO 650 mg Q4H PRN Administration Pain, Mild (1-3) Amlodipine Besylate 10 mg 07/25/19 10:00 07/27/19 09:26 Amlodipine PO 10 mg DAILY VICKEY Administration Lipase/Protease/Amylase 1 each 07/15/19 12:[address] 10,500 Unit FEEDTUBE PRN PRN For Clogged Feeding Tube Apixaban 2.5 mg 06/23/19 22:00 07/27/19 09:25 Eliquis PO 2.5 mg Q12HR VICKEY Administration Protocol Dextrose 50 gm 05/01/19 20:24 D50w (25gm) Vial IV Q30MIN PRN Hypoglycemia Protocol Famotidine 20 mg 06/17/19 10:00 07/27/19 09:25 Pepcid PO 20 mg BID VICKEY Administration Ferrous Sulfate 308 mg 06/18/19 12:00 07/27/19 09:25 Ferrous Sulfate PO 308 mg QDAY VICKEY Administration Hydrochlorothiazide 25 mg 06/26/19 11:00 07/27/19 09:25 Hctz PO 25 mg QDAY VICKEY Administration Insulin Human Lispro 0 unit 06/01/19 14:00 07/27/19 00:55 Humalog SUB-Q Not Given Q6HR VICKEY Protocol Labetalol HCl 200 mg 06/28/19 10:00 07/27/19 05:25 Labetalol PO 200 mg Q8HR VICKEY Administration Multi-Ingred Cream/Lotion/Oil/Oint 1 applic 06/16/19 18:00 Artificial Tears Ophth Oint OU Q4HR PRN Dry Eye(s) Multivitamins 5 ml 06/29/19 12:00 07/27/19 09:25 Centrum Liq PO 5 ml QDAY VICKEY Administration Ondansetron HCl 4 mg 07/22/19 16:14 Zofran IV Q8H PRN Nausea And Vomiting Scopolamine 1 each 06/27/19 09:00 07/27/19 09:25 Transderm-Scop TD 1 each Q3D VICKEY Administration Simple Syrup 15 ml 07/15/19 12:26 Simple Syrup FEEDTUBE PRN PRN Hypoglycemia Simple Syrup 30 ml 07/15/19 12:26 Simple Syrup FEEDTUBE PRN PRN Hypoglycemia Sodium Bicarbonate 325 mg 07/15/19 12:26 Sodium Bicarbonate FEEDTUBE PRN PRN For Clogged Feeding Tube Nutrition/Malnutrition Assess - Dietary Evaluation Nutrition/Malnutrition Findings: Nutrition Notes Start: 05/04/19 12:54 Freq: Status: Active Protocol: Document 07/26/19 14:20 LM (Rec: 07/26/19 14:34 LM [email or web address]) Nutrition Notes Initial or Follow up Brief Note Subjective/Other Information Bolus TF for D/C ready. Nutrition Intervention Anticipated Discharge Needs: Bolus Jevity 1.2 7 cans/day 2 cans for breakfast 2 cans for lunch 1 can scack 2 cans dinner Flush 100 ml before and after each bolus (breakfast, lunch, snack, and dinner) Follow-Up By: 07/30/19 Additional Comments Follow up for TF/POC
[2019-07-28] MEDS: INSULIN LISPRO 100 UNIT/ML SUB-Q SCH ×4 (00:27→17:27)
[2019-07-28] MEDS: APIXABAN 2.5 MG TAB PO SCH ×2 (09:43→21:18)
[2019-07-28] MEDS: hydroCHLOROthiazide 25 MG TAB PO SCH (09:43)
[2019-07-28] MEDS: FAMOTIDINE 20 MG TAB PO SCH ×2 (09:43→21:19)
[2019-07-28] MEDS: FERROUS SULFATE 308 MG (62mg Elemental Iron) / 7 ML ELIXIR PO SCH (09:44)
[2019-07-28] MEDS: MULTIVITAMINS 5 ML ORAL LIQUID PO SCH (09:44)
[2019-07-28] MEDS: amLODIPine 10 MG TAB PO SCH (09:44)
--- NOTE | 2019-07-28 13:06 | Progress Note ---
Assessment and Plan Assessment and plan: Acute respiratory failure; tracheostomy dependent cont trach care, scheduled nebulizers Pulmonary following Obesity hypoventilation syndrome titrate O2 sats to more than 90% Status post cardiac arrest mild anoxic brain injury EEG was negative for seizures and neurology evaluated Oral pharyngeal dysphagia continue tube feeds Anemia of chronic disease Closely monitor H&H and transfuse as needed. 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 Now Patient is on Eliquis Acute kidney injury due to ATN Initially requiring dialysis Resolved, nephrology following. 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 I discussed with therapeutic case manager discharge planning and continue discussions with family. 3/4patient with agitation last evening and this morning requiring soft wrist restraints. Continue trach care, secretion control and airway management. Tracheostomy is indefinite. Family preparation for trach management. History Interval history: No new issues overnight. Hospitalist Physical - Constitutional Vitals: Temp Pulse Resp BP Pulse Ox 99.0 F 89 16 116/77 98 07/28/19 12:01 07/28/19 10:00 07/28/19 12:07/28/19 12:01 07/28/19 10:00 General appearance: Present: no acute distress, obese - EENT Eyes: Present: PERRL, EOM intact ENT: hearing intact, clear oral mucosa, dentition normal - Neck Neck: Present: supple, normal ROM - Respiratory Respiratory effort: normal Respiratory: bilateral: diminished - Cardiovascular Rhythm: regular Heart Sounds: Present: S1 & S2. Absent: gallop, rub - Extremities Extremities: no ischemia, No edema, Full ROM - Abdominal General gastrointestinal: soft, non-tender, non-distended, normal bowel sounds - Integumentary Integumentary: Present: clear, warm, dry - Neurologic Neurologic: CNII-XII intact, moves all extremities Results - Labs CBC & Chem 7: 07/27/19 08:00 07/27/19 08:00 Labs: Laboratory Last Values WBC 12.0 K/mm3 (4.5-11.0) H 07/27/19 08:00 RBC 3.35 M/mm3 (3.65-5.03) L 07/27/19 08:00 Hgb 9.4 gm/dl (11.8-15.2) L 07/27/19 08:00 Hct 29.3 % (35.5-45.6) L 07/27/19 08:00 MCV 88 fl (84-94) 07/27/19 08:00 MCH 28 pg (28-32) 07/27/19 08:00 MCHC 32 % (32-34) 07/27/19 08:00 RDW 18.2 % (13.2-15.2) H 07/27/19 08:00 Plt Count 341 K/mm3 (140-440) 07/27/19 08:00 Lymph % (Auto) 19.2 % (13.4-35.0) 07/20/19 04:33 [place] % (Auto) 6.1 % (0.0-7.3) 07/20/19 04:33 Eos % (Auto) 2.8 % (0.0-4.3) 07/20/19 04:33 Baso % (Auto) 1.1 % (0.0-1.8) 07/20/19 04:33 Lymph # 2.4 K/mm3 (1.2-5.4) 07/20/19 04:33 [place] # 0.8 K/mm3 (0.0-0.8) 07/20/19 04:33 Eos # 0.3 K/mm3 (0.0-0.4) 07/20/19 04:33 Baso # 0.1 K/mm3 (0.0-0.1) 07/20/19 04:33 Add Manual Diff Complete 07/08/19 04:00 Total Counted 100 07/08/19 04:00 Seg Neutrophils % 70.8 % (40.0-70.0) H 07/20/19 04:33 Seg Neuts % (Manual) 76.0 % (40.0-70.0) H 07/08/19 04:00 Band Neutrophils % 0 % 07/08/19 04:00 Lymphocytes % (Manual) 16.0 % (13.4-35.0) 07/08/19 04:00 Reactive Lymphs % (Man) 0 % 07/08/19 04:00 Monocytes % (Manual) 6.0 % (0.0-7.3) 07/08/19 04:00 Eosinophils % (Manual) 2.0 % (0.0-4.3) 07/08/19 04:00 Basophils % (Manual) 0 % (0.0-1.8) 07/08/19 04:00 Metamyelocytes % 0 % 07/08/19 04:00 Myelocytes % 0 % 07/08/19 04:00 Promyelocytes % 0 % 07/08/19 04:00 Blast Cells % 0 % 07/08/19 04:00 Nucleated RBC % Not Reportable 07/08/19 04:00 Seg Neutrophils # 8.7 K/mm3 (1.8-7.7) H 07/20/19 04:33 Seg Neutrophils # Man 8.4 K/mm3 (1.8-7.7) H 07/08/19 04:00 Band Neutrophils # 0.0 K/mm3 07/08/19 04:00 Lymphocytes # (Manual) 1.8 K/mm3 (1.2-5.4) 07/08/19 04:00 Abs React Lymphs (Man) 0.0 K/mm3 07/08/19 04:00 Monocytes # (Manual) 0.7 K/mm3 (0.0-0.8) 07/08/19 04:00 Eosinophils # (Manual) 0.2 K/mm3 (0.0-0.4) 07/08/19 04:00 Basophils # (Manual) 0.0 K/mm3 (0.0-0.1) 07/08/19 04:00 Metamyelocytes # 0.0 K/mm3 07/08/19 04:00 Myelocytes # 0.0 K/mm3 07/08/19 04:00 Promyelocytes # 0.0 K/mm3 07/08/19 04:00 Blast Cells # 0.0 K/mm3 07/08/19 04:00 WBC Morphology Not Reportable 07/08/19 04:00 Hypersegmented Neuts Not Reportable 07/08/19 04:00 Hyposegmented Neuts Not Reportable 07/08/19 04:00 Hypogranular Neuts Not Reportable 07/08/19 04:00 Smudge Cells Not Reportable 07/08/19 04:00 Toxic Granulation Not Reportable 07/08/19 04:00 Toxic Vacuolation Not Reportable 07/08/19 04:00 Dohle Bodies Not Reportable 07/08/19 04:00 Pelger-Huet Anomaly Not Reportable 07/08/19 04:00 Renea Rods Not Reportable 07/08/19 04:00 Platelet Estimate Consistent w auto 07/08/19 04:00 Clumped Platelets Not Reportable 07/08/19 04:00 Plt Clumps, EDTA Not Reportable 07/08/19 04:00 Large Platelets Not Reportable 07/08/19 04:00 Giant Platelets Not Reportable 07/08/19 04:00 Platelet Satelliting Not Reportable 07/08/19 04:00 Plt Morphology Comment Not Reportable 07/08/19 04:00 RBC Morphology Not Reportable 07/08/19 04:00 Dimorphic RBCs Not Reportable 07/08/19 04:00 Polychromasia Not Reportable 07/08/19 04:00 Hypochromasia Not Reportable 07/08/19 04:00 Poikilocytosis Not Reportable 07/08/19 04:00 Anisocytosis 1+ 07/08/19 04:00 Microcytosis Not Reportable 07/08/19 04:00 Macrocytosis Not Reportable 07/08/19 04:00 Spherocytes Not Reportable 07/08/19 04:00 Pappenheimer Bodies Not Reportable 07/08/19 04:00 Sickle Cells Not Reportable 07/08/19 04:00 Target Cells Not Reportable 07/08/19 04:00 Tear Drop Cells Not Reportable 07/08/19 04:00 Ovalocytes Not Reportable 07/08/19 04:00 Stomatocytes 3+ 06/23/19 05:24 Helmet Cells Not Reportable 07/08/19 04:00 [employer] Bodies Not Reportable 07/08/19 04:00 [place] Rings Not Reportable 07/08/19 04:00 Dennis Cells Not Reportable 07/08/19 04:00 Bite Cells Not Reportable 07/08/19 04:00 Crenated Cell Not Reportable 07/08/19 04:00 Elliptocytes Not Reportable 07/08/19 04:00 Acanthocytes (Spur) Not Reportable 07/08/19 04:00 Rouleaux Not Reportable 07/08/19 04:00 Hemoglobin C Crystals Not Reportable 07/08/19 04:00 Schistocytes Not Reportable 07/08/19 04:00 Malaria parasites Not Reportable 07/08/19 04:00 Syed Bodies Not Reportable 07/08/19 04:00 Hem Pathologist Commnt No 07/08/19 04:00 PT 15.4 Sec. (12.2-14.9) H 05/01/19 Unknown INR 1.23 (0.87-1.13) H 05/01/19 Unknown APTT 22.7 Sec. (24.2-36.6) L 05/01/19 Unknown Fibrinogen 194 mg/dl (211-480) L 06/17/19 12:45 Heparin Anti-Xa, Unfract Negative (Negative) 06/17/19 12:45 POC ABG pH 7.462 (7.35-7.45) H 06/05/19 03:52 ABG pH 7.469 pH Units (7.350-7.450) H 06/23/19 02:00 POC ABG pCO2 39.8 (35-45) 06/05/19 03:52 ABG pCO2 39.4 mm Hg 06/23/19 02:00 POC ABG pO2 86 (80-105) 06/05/19 03:52 ABG pO2 58.7 mm Hg (80.0-90.0) L 06/23/19 02:00 POC ABG HCO3 28.4 (22-26 mml/L) 06/05/19 03:52 ABG HCO3 28.0 mmol/L (20.0-26.0) H 06/23/19 02:00 POC ABG Total CO2 30 (23-27mmol/L) 06/05/19 03:52 POC ABG O2 Sat 97 06/05/19 03:52 ABG O2 Saturation 94.6 % (95.0-99.0) L 06/23/19 02:00 ABG O2 Content 9.2 (0.0-44) 06/23/19 02:00 POC ABG Base Excess 5 ((-2) - (+3)mmol/L) 06/05/19 03:52 ABG Base Excess 4.0 mmol/L (-2.0-3.0) H 06/23/19 02:00 ABG Hemoglobin 7.1 gm/dl (14.0-18.0) L 06/23/19 02:00 ABG Carboxyhemoglobin 2.0 % (0.0-5.0) 06/23/19 02:00 ABG Methemoglobin 0.5 % (0.0-1.5) 06/23/19 02:00 Oxyhemoglobin 92.2 % (95.0-99.0) L 06/23/19 02:00 FiO2 30 % 06/23/19 02:00 Sodium 140 mmol/L (137-145) 07/27/19 08:00 Potassium 4.1 mmol/L (3.6-5.0) 07/27/19 08:00 Chloride 97.7 mmol/L (98-107) L 07/27/19 08:00 Carbon Dioxide 24 mmol/L (22-30) 07/27/19 08:00 Anion Gap 22 mmol/L 07/27/19 08:00 BUN 9 mg/dL (9-20) 07/27/19 08:00 Creatinine 0.5 mg/dL (0.8-1.5) L 07/27/19 08:00 Estimated GFR > 60 ml/min 07/27/19 08:00 BUN/Creatinine Ratio 18 % 07/27/19 08:00 Glucose 117 mg/dL (75-100) H 07/27/19 08:00 POC Glucose 122 (70-105) H 07/28/19 12:06 Osmolality 327 Mosm/kg 05/07/19 13:45 Uric Acid 18.0 mg/dL (3.5-7.6) H 05/07/19 13:45 Calcium 9.5 mg/dL (8.4-10.2) 07/27/19 08:00 Phosphorus 3.70 mg/dL (2.5-4.5) 06/10/19 05:45 Magnesium 1.60 mg/dL (1.7-2.3) L 06/26/19 04:43 Iron 45 ug/dL (49-181) L 06/20/19 09:12 TIBC 110 mcg/dL (250-450) L 06/20/19 09:12 Ferritin 315.2 ng/mL (13.0-400.0) 06/20/19 09:12 Total Bilirubin 0.50 mg/dL (0.1-1.2) 06/08/19 04:20 AST 23 units/L (5-40) 06/08/19 04:20 ALT 66 units/L (7-56) H 06/08/19 04:20 Alkaline Phosphatase 59 units/L (35-129) 06/08/19 04:20 Total Creatine Kinase 131 units/L (55-170) 05/02/19 04:41 CK-MB (CK-2) 5.2 ng/mL (0.0-4.0) H 05/02/19 04:41 CK-MB (CK-2) Rel Index 3.9 (0-4) 05/02/19 04:41 Troponin T 0.067 ng/mL (0.00-0.029) H D 05/02/19 04:41 NT-Pro-B Natriuret Pep 6831 pg/mL (0-450) H 05/01/19 Unknown Total Protein 5.5 g/dL (6.3-8.2) L 06/08/19 04:20 Albumin 2.9 g/dL (3.9-5) L 06/08/19 04:20 Albumin/Globulin Ratio 1.1 % 06/08/19 04:20 Triglycerides 210 mg/dL (2-149) H 06/19/19 04:30 Cholesterol 173 mg/dL (50-199) 05/02/19 00:06 LDL Cholesterol Direct 126 mg/dL (50-130) 05/02/19 00:06 HDL Cholesterol 18 mg/dL (40-59) L 05/02/19 00:06 Cholesterol/HDL Ratio 9.61 % 05/02/19 00:06 Serotonin Release Assay See scanned results 06/17/19 12:45 Vitamin B12 353.0 pg/mL (211-911) 06/20/19 09:12 Folate 7.01 ng/mL (7.3-26.0) L 06/20/19 09:12 Procalcitonin 0.05 ng/mL (<0.15) 06/17/19 12:45 Urine Color Yellow (Yellow) 06/17/19 12:45 Urine Turbidity Slightly-cloudy (Clear) 06/17/19 12:45 Urine pH 5.0 (5.0-7.0) 06/17/19 12:45 Ur Specific [place] 1.013 (1.003-1.030) 06/17/19 12:45 Urine Protein <15 mg/dl mg/dL (Negative) 06/17/19 12:45 Urine Glucose (UA) Neg mg/dL (Negative) 06/17/19 12:45 Urine Ketones Neg mg/dL (Negative) 06/17/19 12:45 Urine Blood Sm (Negative) 06/17/19 12:45 Urine Nitrite Neg (Negative) 06/17/19 12:45 Urine Bilirubin Neg (Negative) 06/17/19 12:45 Urine Urobilinogen < 2.0 mg/dL (<2.0) 06/17/19 12:45 Ur Leukocyte Esterase Neg (Negative) 06/17/19 12:45 Urine WBC (Auto) 2.0 /HPF (0.0-6.0) 06/17/19 12:45 Urine RBC (Auto) 2.0 /HPF (0.0-6.0) 06/17/19 12:45 U Epithel Cells (Auto) < 1.0 /HPF (0-13.0) 06/17/19 12:45 Urine Bacteria (Auto) 1+ /HPF (Negative) 05/20/19 12:00 Uric Acid Crystals 3+ 05/03/19 10:55 Urine Mucus Few /HPF 06/17/19 12:45 Urine Yeast (Budding) 3+ /HPF 05/20/19 12:00 Urine Creatinine 292.8 mg/dL (0.1-20.0) H 05/07/19 22:40 Urine Sodium 11 mmol/L 05/07/19 22:40 Urine Total Protein 269 mg/dL (5-11.8) H 05/07/19 22:40 Vancomycin Trough 20.5 ug/mL (5.0-20.0) H 05/15/19 09:00 Random Vancomycin 11.5 ug/mL (0-40.0) 05/27/19 06:00 AMNA Screen Negative (Negative) 05/07/19 13:45 Heparin-induced Plt Ab Negative (Negative) 06/17/19 12:45 UF Heparin High Dose 13 % Release 06/17/19 12:45 YUNG UFH Low Dose 0.1 8 % Release 06/17/19 12:45 YUNG UFH Low Dose 0.5 7 % Release 06/17/19 12:45 Hepatitis A IgM Ab Non-reactive (NonReactive) 05/07/19 13:45 Hep Bs Antigen Non-reactive (Negative) 05/07/19 13:45 Hep B Core IgM Ab Non-reactive (NonReactive) 05/07/19 13:45 Hepatitis C Antibody Non-reactive (NonReactive) 05/07/19 13:45 Influenza A (Rapid) Negative (Negative) 06/17/19 11:35 Influenza B (Rapid) Negative (Negative) 06/17/19 11:35 Active Medications - Current Medications Current Medications: Generic Name Dose Route Start Last Admin Trade Name Freq PRN Reason Stop Dose Admin Acetaminophen 650 mg 07/02/19 23:56 07/25/19 10:50 Tylenol PO 650 mg Q4H PRN Administration Pain, Mild (1-3) Amlodipine Besylate 10 mg 07/25/19 10:00 07/28/19 09:44 Amlodipine PO 10 mg DAILY VICKEY Administration Lipase/Protease/Amylase 1 each 07/15/19 12:26 Pancreaze 10,500 Unit FEEDTUBE PRN PRN For Clogged Feeding Tube Apixaban 2.5 mg 06/23/19 22:00 07/28/19 09:43 Eliquis PO 2.5 mg Q12HR VICKEY Administration Protocol Dextrose 50 gm 05/01/19 20:24 D50w (25gm) Vial IV Q30MIN PRN Hypoglycemia Protocol Famotidine 20 mg 06/17/19 10:00 07/28/19 09:43 Pepcid PO 20 mg BID VICKEY Administration Ferrous Sulfate 308 mg 06/18/19 12:00 07/28/19 09:44 Ferrous Sulfate PO 308 mg QDAY IVCKEY Administration Hydrochlorothiazide 25 mg 06/26/19 11:00 07/28/19 09:43 Hctz PO 25 mg QDAY VICKEY Administration Insulin Human Lispro 0 unit 06/01/19 14:00 07/28/19 06:32 Humalog SUB-Q Not Given Q6HR VICKEY Protocol Labetalol HCl 200 mg 06/28/19 10:00 07/28/19 05:19 Labetalol PO 200 mg Q8HR VICKEY Administration Multi-Ingred Cream/Lotion/Oil/Oint 1 applic 06/16/19 18:00 Artificial Tears Ophth Oint OU Q4HR PRN Dry Eye(s) Multivitamins 5 ml 06/29/19 12:00 07/28/19 09:44 Centrum Liq PO 5 ml QDAY VICKEY Administration Ondansetron HCl 4 mg 07/22/19 16:14 Zofran IV Q8H PRN Nausea And Vomiting Scopolamine 1 each 06/27/19 09:00 07/27/19 09:25 Transderm-Scop TD 1 each Q3D VICKEY Administration Simple Syrup 15 ml 07/15/19 12:26 Simple Syrup FEEDTUBE PRN PRN Hypoglycemia Simple Syrup 30 ml 07/15/19 12:26 Simple Syrup FEEDTUBE PRN PRN Hypoglycemia Sodium Bicarbonate 325 mg 07/15/19 12:26 Sodium Bicarbonate FEEDTUBE PRN PRN For Clogged Feeding Tube Nutrition/Malnutrition Assess - Dietary Evaluation Nutrition/Malnutrition Findings: Nutrition Notes Start: 05/04/19 12:54 Freq: Status: Active Protocol: Document 07/26/19 14:20 LM (Rec: 07/26/19 14:34 LM [email or web address]) Nutrition Notes Initial or Follow up Brief Note Subjective/Other Information Bolus TF for D/C ready. Nutrition Intervention Anticipated Discharge Needs: Bolus Jevity 1.2 7 cans/day 2 cans for breakfast 2 cans for lunch 1 can scack 2 cans dinner Flush 100 ml before and after each bolus (breakfast, lunch, snack, and dinner) Follow-Up By: 07/30/19 Additional Comments Follow up for TF/POC
[2019-07-28] MEDS: ACETAMINOPHEN 325 MG TAB PO PRN (21:16)
[2019-07-29] MEDS: INSULIN LISPRO 100 UNIT/ML SUB-Q SCH ×4 (00:36→18:04)
[2019-07-29] MEDS: FAMOTIDINE 20 MG TAB PO SCH ×2 (10:47→21:47)
[2019-07-29] MEDS: amLODIPine 10 MG TAB PO SCH (10:47)
[2019-07-29] MEDS: APIXABAN 2.5 MG TAB PO SCH ×2 (10:47→21:47)
[2019-07-29] MEDS: hydroCHLOROthiazide 25 MG TAB PO SCH (10:48)
[2019-07-29] MEDS: FERROUS SULFATE 308 MG (62mg Elemental Iron) / 7 ML ELIXIR PO SCH (10:48)
[2019-07-29] MEDS: MULTIVITAMINS 5 ML ORAL LIQUID PO SCH (10:48)
[2019-07-29] MEDS ORDERED: LORazepam 2 MG/ML VIAL IV PRN (13:04)
--- NOTE | 2019-07-29 21:27 | Progress Note ---
Assessment and Plan - Patient Problems (1) Acute heart failure with preserved ejection fraction Current Visit: Yes Status: Acute Plan to address problem: Patient congestive heart failure at present very well compensated. Only trace edema now. (2) Acute hypernatremia Current Visit: Yes Status: Resolved (3) Acute on chronic respiratory failure Current Visit: Yes Status: Acute Qualifiers: Respiratory failure complication: hypoxia Qualified Code(s): J96.21 - Acute and chronic respiratory failure with hypoxia Plan to address problem: Patient now with chronic respiratory failure with tracheostomy on oxygen. Oxygenating well with current 3 L O2. (4) Anemia Current Visit: Yes Status: Acute Plan to address problem: Anemia stable. Patient does have thrombocytopenia resolved. (5) Noncompliance with CPAP treatment Current Visit: Yes Status: Acute (6) Anxiety Current Visit: Yes Status: Acute Plan to address problem: Patient with anxiety will start with low-dose Ativan as needed. Continue restraints as were doing. Requires that for his safety. (7) Obesity hypoventilation syndrome Current Visit: Yes Status: Acute Plan to address problem: Continue to observe CPAP in the p.m. Oxygen. (8) Physical deconditioning Current Visit: Yes Status: Acute Plan to address problem: Patient with severe physical deconditioning. Attempts to get patient home. Family called plan to meet here tomorrow to discuss options for patient transferring home. (9) Anoxic brain injury Current Visit: Yes Status: Suspected Plan to address problem: Unable to clearly tell whether patient has some degree of anoxic brain injury. It does appear so. We will continue supportive care follow-up. History Interval history: Patient was in room today very agitated. Appeared to be going through a panic attack. Did state he want to go home. Patient was attempting to pull off oxygen. Pulling on feeding tube. Taking the leads off. When you talk to him h e would follow instructions. Patient appeared to be very anxious. Nurse at bedside. Hospitalist Physical - Constitutional Vitals: Temp Pulse Resp BP Pulse Ox 100.5 F H 111 H 20 117/72 91 07/29/19 19:42 07/29/19 19:42 07/29/19 19:42 07/29/19 19:42 07/29/19 19:42 General appearance: Present: no acute distress, obese - EENT ENT: hearing intact, clear oral mucosa, dentition normal - Respiratory Respiratory: bilateral: diminished - Cardiovascular Rhythm: regular - Extremities Extremities: no ischemia, pulses intact, pulses symmetrical Peripheral Pulses: within normal limits - Abdominal General gastrointestinal: soft, normal bowel sounds, other (Percutaneous feeding tube.) - Psychiatric Psychiatric: agitated Results - Labs CBC & Chem 7: 07/27/19 08:00 07/27/19 08:00 Labs: Laboratory Last Values WBC 12.0 K/mm3 (4.5-11.0) H 07/27/19 08:00 RBC 3.35 M/mm3 (3.65-5.03) L 07/27/19 08:00 Hgb 9.4 gm/dl (11.8-15.2) L 07/27/19 08:00 Hct 29.3 % (35.5-45.6) L 07/27/19 08:00 MCV 88 fl (84-94) 07/27/19 08:00 MCH 28 pg (28-32) 07/27/19 08:00 MCHC 32 % (32-34) 07/27/19 08:00 RDW 18.2 % (13.2-15.2) H 07/27/19 08:00 Plt Count 341 K/mm3 (140-440) 07/27/19 08:00 Lymph % (Auto) 19.2 % (13.4-35.0) 07/20/19 04:33 [place] % (Auto) 6.1 % (0.0-7.3) 07/20/19 04:33 Eos % (Auto) 2.8 % (0.0-4.3) 07/20/19 04:33 Baso % (Auto) 1.1 % (0.0-1.8) 07/20/19 04:33 Lymph # 2.4 K/mm3 (1.2-5.4) 07/20/19 04:33 [place] # 0.8 K/mm3 (0.0-0.8) 07/20/19 04:33 Eos # 0.3 K/mm3 (0.0-0.4) 07/20/19 04:33 Baso # 0.1 K/mm3 (0.0-0.1) 07/20/19 04:33 Add Manual Diff Complete 07/08/19 04:00 Total Counted 100 07/08/19 04:00 Seg Neutrophils % 70.8 % (40.0-70.0) H 07/20/19 04:33 Seg Neuts % (Manual) 76.0 % (40.0-70.0) H 07/08/19 04:00 Band Neutrophils % 0 % 07/08/19 04:00 Lymphocytes % (Manual) 16.0 % (13.4-35.0) 07/08/19 04:00 Reactive Lymphs % (Man) 0 % 07/08/19 04:00 Monocytes % (Manual) 6.0 % (0.0-7.3) 07/08/19 04:00 Eosinophils % (Manual) 2.0 % (0.0-4.3) 07/08/19 04:00 Basophils % (Manual) 0 % (0.0-1.8) 07/08/19 04:00 Metamyelocytes % 0 % 07/08/19 04:00 Myelocytes % 0 % 07/08/19 04:00 Promyelocytes % 0 % 07/08/19 04:00 Blast Cells % 0 % 07/08/19 04:00 Nucleated RBC % Not Reportable 07/08/19 04:00 Seg Neutrophils # 8.7 K/mm3 (1.8-7.7) H 07/20/19 04:33 Seg Neutrophils # Man 8.4 K/mm3 (1.8-7.7) H 07/08/19 04:00 Band Neutrophils # 0.0 K/mm3 07/08/19 04:00 Lymphocytes # (Manual) 1.8 K/mm3 (1.2-5.4) 07/08/19 04:00 Abs React Lymphs (Man) 0.0 K/mm3 07/08/19 04:00 Monocytes # (Manual) 0.7 K/mm3 (0.0-0.8) 07/08/19 04:00 Eosinophils # (Manual) 0.2 K/mm3 (0.0-0.4) 07/08/19 04:00 Basophils # (Manual) 0.0 K/mm3 (0.0-0.1) 07/08/19 04:00 Metamyelocytes # 0.0 K/mm3 07/08/19 04:00 Myelocytes # 0.0 K/mm3 07/08/19 04:00 Promyelocytes # 0.0 K/mm3 07/08/19 04:00 Blast Cells # 0.0 K/mm3 07/08/19 04:00 WBC Morphology Not Reportable 07/08/19 04:00 Hypersegmented Neuts Not Reportable 07/08/19 04:00 Hyposegmented Neuts Not Reportable 07/08/19 04:00 Hypogranular Neuts Not Reportable 07/08/19 04:00 Smudge Cells Not Reportable 07/08/19 04:00 Toxic Granulation Not Reportable 07/08/19 04:00 Toxic Vacuolation Not Reportable 07/08/19 04:00 Dohle Bodies Not Reportable 07/08/19 04:00 [place] Anomaly Not Reportable 07/08/19 04:00 Renea Rods Not Reportable 07/08/19 04:00 Platelet Estimate Consistent w auto 07/08/19 04:00 Clumped Platelets Not Reportable 07/08/19 04:00 Plt Clumps, EDTA Not Reportable 07/08/19 04:00 Large Platelets Not Reportable 07/08/19 04:00 Giant Platelets Not Reportable 07/08/19 04:00 Platelet Satelliting Not Reportable 07/08/19 04:00 Plt Morphology Comment Not Reportable 07/08/19 04:00 RBC Morphology Not Reportable 07/08/19 04:00 Dimorphic RBCs Not Reportable 07/08/19 04:00 Polychromasia Not Reportable 07/08/19 04:00 Hypochromasia Not Reportable 07/08/19 04:00 Poikilocytosis Not Reportable 07/08/19 04:00 Anisocytosis 1+ 07/08/19 04:00 Microcytosis Not Reportable 07/08/19 04:00 Macrocytosis Not Reportable 07/08/19 04:00 Spherocytes Not Reportable 07/08/19 04:00 Pappenheimer Bodies Not Reportable 07/08/19 04:00 Sickle Cells Not Reportable 07/08/19 04:00 Target Cells Not Reportable 07/08/19 04:00 Tear Drop Cells Not Reportable 07/08/19 04:00 Ovalocytes Not Reportable 07/08/19 04:00 Stomatocytes 3+ 06/23/19 05:24 Helmet Cells Not Reportable 07/08/19 04:00 [place] Bodies Not Reportable 07/08/19 04:00 [place] Rings Not Reportable 07/08/19 04:00 [place] Cells Not Reportable 07/08/19 04:00 Bite Cells Not Reportable 07/08/19 04:00 Crenated Cell Not Reportable 07/08/19 04:00 Elliptocytes Not Reportable 07/08/19 04:00 Acanthocytes (Spur) Not Reportable 07/08/19 04:00 Rouleaux Not Reportable 07/08/19 04:00 Hemoglobin C Crystals Not Reportable 07/08/19 04:00 Schistocytes Not Reportable 07/08/19 04:00 Malaria parasites Not Reportable 07/08/19 04:00 [place] Bodies Not Reportable 07/08/19 04:00 Hem Pathologist Commnt No 07/08/19 04:00 PT 15.4 Sec. (12.2-14.9) H 05/01/19 Unknown INR 1.23 (0.87-1.13) H 05/01/19 Unknown APTT 22.7 Sec. (24.2-36.6) L 05/01/19 Unknown Fibrinogen 194 mg/dl (211-480) L 06/17/19 12:45 Heparin Anti-Xa, Unfract Negative (Negative) 06/17/19 12:45 POC ABG pH 7.462 (7.35-7.45) H 06/05/19 03:52 ABG pH 7.469 pH Units (7.350-7.450) H 06/23/19 02:00 POC ABG pCO2 39.8 (35-45) 06/05/19 03:52 ABG pCO2 39.4 mm Hg 06/23/19 02:00 POC ABG pO2 86 (80-105) 06/05/19 03:52 ABG pO2 58.7 mm Hg (80.0-90.0) L 06/23/19 02:00 POC ABG HCO3 28.4 (22-26 mml/L) 06/05/19 03:52 ABG HCO3 28.0 mmol/L (20.0-26.0) H 06/23/19 02:00 POC ABG Total CO2 30 (23-27mmol/L) 06/05/19 03:52 POC ABG O2 Sat 97 06/05/19 03:52 ABG O2 Saturation 94.6 % (95.0-99.0) L 06/23/19 02:00 ABG O2 Content 9.2 (0.0-44) 06/23/19 02:00 POC ABG Base Excess 5 ((-2) - (+3)mmol/L) 06/05/19 03:52 ABG Base Excess 4.0 mmol/L (-2.0-3.0) H 06/23/19 02:00 ABG Hemoglobin 7.1 gm/dl (14.0-18.0) L 06/23/19 02:00 ABG Carboxyhemoglobin 2.0 % (0.0-5.0) 06/23/19 02:00 ABG Methemoglobin 0.5 % (0.0-1.5) 06/23/19 02:00 Oxyhemoglobin 92.2 % (95.0-99.0) L 06/23/19 02:00 FiO2 30 % 06/23/19 02:00 Sodium 140 mmol/L (137-145) 07/27/19 08:00 Potassium 4.1 mmol/L (3.6-5.0) 07/27/19 08:00 Chloride 97.7 mmol/L (98-107) L 07/27/19 08:00 Carbon Dioxide 24 mmol/L (22-30) 07/27/19 08:00 Anion Gap 22 mmol/L 07/27/19 08:00 BUN 9 mg/dL (9-20) 07/27/19 08:00 Creatinine 0.5 mg/dL (0.8-1.5) L 07/27/19 08:00 Estimated GFR > 60 ml/min 07/27/19 08:00 BUN/Creatinine Ratio 18 % 07/27/19 08:00 Glucose 117 mg/dL (75-100) H 07/27/19 08:00 POC Glucose 131 (70-105) H 07/29/19 18:15 Osmolality 327 Mosm/kg 05/07/19 13:45 Uric Acid 18.0 mg/dL (3.5-7.6) H 05/07/19 13:45 Calcium 9.5 mg/dL (8.4-10.2) 07/27/19 08:00 Phosphorus 3.70 mg/dL (2.5-4.5) 06/10/19 05:45 Magnesium 1.60 mg/dL (1.7-2.3) L 06/26/19 04:43 Iron 45 ug/dL (49-181) L 06/20/19 09:12 TIBC 110 mcg/dL (250-450) L 06/20/19 09:12 Ferritin 315.2 ng/mL (13.0-400.0) 06/20/19 09:12 Total Bilirubin 0.50 mg/dL (0.1-1.2) 06/08/19 04:20 AST 23 units/L (5-40) 06/08/19 04:20 ALT 66 units/L (7-56) H 06/08/19 04:20 Alkaline Phosphatase 59 units/L (35-129) 06/08/19 04:20 Total Creatine Kinase 131 units/L (55-170) 05/02/19 04:41 CK-MB (CK-2) 5.2 ng/mL (0.0-4.0) H 05/02/19 04:41 CK-MB (CK-2) Rel Index 3.9 (0-4) 05/02/19 04:41 Troponin T 0.067 ng/mL (0.00-0.029) H D 05/02/19 04:41 NT-Pro-B Natriuret Pep 6831 pg/mL (0-450) H 05/01/19 Unknown Total Protein 5.5 g/dL (6.3-8.2) L 06/08/19 04:20 Albumin 2.9 g/dL (3.9-5) L 06/08/19 04:20 Albumin/Globulin Ratio 1.1 % 06/08/19 04:20 Triglycerides 210 mg/dL (2-149) H 06/19/19 04:30 Cholesterol 173 mg/dL (50-199) 05/02/19 00:06 LDL Cholesterol Direct 126 mg/dL (50-130) 05/02/19 00:06 HDL Cholesterol 18 mg/dL (40-59) L 05/02/19 00:06 Cholesterol/HDL Ratio 9.61 % 05/02/19 00:06 Serotonin Release Assay See scanned results 06/17/19 12:45 Vitamin B12 353.0 pg/mL (211-911) 06/20/19 09:12 Folate 7.01 ng/mL (7.3-26.0) L 06/20/19 09:12 Procalcitonin 0.05 ng/mL (<0.15) 06/17/19 12:45 Urine Color Yellow (Yellow) 06/17/19 12:45 Urine Turbidity Slightly-cloudy (Clear) 06/17/19 12:45 Urine pH 5.0 (5.0-7.0) 06/17/19 12:45 Ur Specific [place] 1.013 (1.003-1.030) 06/17/19 12:45 Urine Protein <15 mg/dl mg/dL (Negative) 06/17/19 12:45 Urine Glucose (UA) Neg mg/dL (Negative) 06/17/19 12:45 Urine Ketones Neg mg/dL (Negative) 06/17/19 12:45 Urine Blood Sm (Negative) 06/17/19 12:45 Urine Nitrite Neg (Negative) 06/17/19 12:45 Urine Bilirubin Neg (Negative) 06/17/19 12:45 Urine Urobilinogen < 2.0 mg/dL (<2.0) 06/17/19 12:45 Ur Leukocyte Esterase Neg (Negative) 06/17/19 12:45 Urine WBC (Auto) 2.0 /HPF (0.0-6.0) 06/17/19 12:45 Urine RBC (Auto) 2.0 /HPF (0.0-6.0) 06/17/19 12:45 U Epithel Cells (Auto) < 1.0 /HPF (0-13.0) 06/17/19 12:45 Urine Bacteria (Auto) 1+ /HPF (Negative) 05/20/19 12:00 Uric Acid Crystals 3+ 05/03/19 10:55 Urine Mucus Few /HPF 06/17/19 12:45 Urine Yeast (Budding) 3+ /HPF 05/20/19 12:00 Urine Creatinine 292.8 mg/dL (0.1-20.0) H 05/07/19 22:40 Urine Sodium 11 mmol/L 05/07/19 22:40 Urine Total Protein 269 mg/dL (5-11.8) H 05/07/19 22:40 Vancomycin Trough 20.5 ug/mL (5.0-20.0) H 05/15/19 09:00 Random Vancomycin 11.5 ug/mL (0-40.0) 05/27/19 06:00 AMNA Screen Negative (Negative) 05/07/19 13:45 Heparin-induced Plt Ab Negative (Negative) 06/17/19 12:45 UF Heparin High Dose 13 % Release 06/17/19 12:45 YUNG UFH Low Dose 0.1 8 % Release 06/17/19 12:45 YUNG UFH Low Dose 0.5 7 % Release 06/17/19 12:45 Hepatitis A IgM Ab Non-reactive (NonReactive) 05/07/19 13:45 Hep Bs Antigen Non-reactive (Negative) 05/07/19 13:45 Hep B Core IgM Ab Non-reactive (NonReactive) 05/07/19 13:45 Hepatitis C Antibody Non-reactive (NonReactive) 05/07/19 13:45 Influenza A (Rapid) Negative (Negative) 06/17/19 11:35 Influenza B (Rapid) Negative (Negative) 06/17/19 11:35 Active Medications - Current Medications Current Medications: Generic Name Dose Route Start Last Admin Trade Name Freq PRN Reason Stop Dose Admin Acetaminophen 650 mg 07/02/19 23:56 07/28/19 21:16 Tylenol PO 650 mg Q4H PRN Administration Pain, Mild (1-3) Amlodipine Besylate 10 mg 07/25/19 10:00 07/29/19 10:47 Amlodipine PO 10 mg DAILY VICKEY Administration Lipase/Protease/Amylase 1 each 07/15/19 12:26 Pancreaze 10,500 Unit FEEDTUBE PRN PRN For Clogged Feeding Tube Apixaban 2.5 mg 06/23/19 22:00 07/29/19 10:47 Eliquis PO 2.5 mg Q12HR VICKEY Administration Protocol Dextrose 50 gm 05/01/19 20:24 D50w (25gm) Vial IV Q30MIN PRN Hypoglycemia Protocol Famotidine 20 mg 06/17/19 10:00 07/29/19 10:47 Pepcid PO 20 mg BID VICKEY Administration Ferrous Sulfate 308 mg 06/18/19 12:00 07/29/19 10:48 Ferrous Sulfate PO 308 mg QDAY VICKEY Administration Hydrochlorothiazide 25 mg 06/26/19 11:00 07/29/19 10:48 Hctz PO 25 mg QDAY VICKEY Administration Insulin Human Lispro 0 unit 06/01/19 14:00 07/29/19 18:04 Humalog SUB-Q Not Given Q6HR [facility] Protocol Labetalol HCl 200 mg 06/28/19 10:00 07/29/19 18:04 Labetalol PO 200 mg Q8HR VICKEY Administration Lorazepam 1 mg 07/29/19 18:38 Ativan PO Q8H PRN Agitation Multi-Ingred Cream/Lotion/Oil/Oint 1 applic 06/16/19 18:00 Artificial Tears Ophth Oint OU Q4HR PRN Dry Eye(s) Multivitamins 5 ml 06/29/19 12:00 07/29/19 10:48 Centrum Liq PO 5 ml QDAY VICKEY Administration Ondansetron HCl 4 mg 07/22/19 16:14 Zofran IV Q8H PRN Nausea And Vomiting Scopolamine 1 each 06/27/19 09:00 07/27/19 09:25 Transderm-Scop TD 1 each Q3D VICKEY Administration Simple Syrup 15 ml 07/15/19 12:26 Simple Syrup FEEDTUBE PRN PRN Hypoglycemia Simple Syrup 30 ml 07/15/19 12:26 Simple Syrup FEEDTUBE PRN PRN Hypoglycemia Sodium Bicarbonate 325 mg 07/15/19 12:26 Sodium Bicarbonate FEEDTUBE PRN PRN For Clogged Feeding Tube Nutrition/Malnutrition Assess - Dietary Evaluation Nutrition/Malnutrition Findings: Nutrition Notes Start: 05/04/19 12:54 Freq: Status: Active Protocol: Document 07/26/19 14:20 LM (Rec: 07/26/19 14:34 LM [email or web address]) Nutrition Notes Initial or Follow up Brief Note Subjective/Other Information Bolus TF for D/C ready. Nutrition Intervention Anticipated Discharge Needs: Bolus Jevity 1.2 7 cans/day 2 cans for breakfast 2 cans for lunch 1 can scack 2 cans dinner Flush 100 ml before and after each bolus (breakfast, lunch, snack, and dinner) Follow-Up By: 07/30/19 Additional Comments Follow up for TF/POC
[2019-07-30] MEDS: INSULIN LISPRO 100 UNIT/ML SUB-Q SCH ×4 (06:10→18:05)
--- NOTE | 2019-07-30 09:14 | Progress Note ---
Assessment and Plan 34 y/o male with acute hypoxic, hypercapnic respiratory failure now with trach and uncontrolled hypertension. 07/30/2019: Now on room air. Stable. CM should be planning discharge home. Will see as needed over the weekend 07/28/2019: No new recs. Continue trach care and trach is indefinite. Family preparation for trach management 07/27/2019: No new recs. Tolerated trach change. Trach is indefinite. Pulm status stable for discharge. Family will need to be trained on trach care. 07/23/2019: No new recs. Would suggest moving patient closer to nursing station. Will see PRN over the weekend 07/21/2019: No new recs. Pulm status stable. Placement is barrier to discharge given lack of funding and mother not responding. 07/19/2019: Stable pulm status. Per CM called mother to discuss goals of care but she has not responded. 07/16/2019: Stable pulm status. Will see PRN over the weekend. 07/15/2019: Patient has been stable pulm murphy thus far. No objection with transfer to [facility], close to nursing station though given history of patient pulling out trach. 07/13/2019: No new recs from today. Please see below. 07/10/2019: Continue PT/OT 07/09/2019: No new recs for today. Contiue PT/OT. Disposition is unknown secondary to lack of funding. 07/08/19: No new recs for today. Contiue PT/OT. Disposition is unknown secondary to lack of funding. 07/07/19. Stopping prednisone as this wasn't stopped over the weekend. Needs suctioning and asked that if transferred please place patient close as possible to nursing station. 07/06/19: Continue IMCU care. Requires frequent suctioning. PT/OT 07/02/19: Patient should not be transferred to the floor. Although his pulm status is stable, he is very high risk for decompensation and if the incident that happened last night, happened on the floor, that may have been his demise. Ok with right arm restraint for now. 07/01/2019: Continue current care. PT/OT. Work on discharge planning. steroids to 5 daily, will likely stop Friday or Friday. Stable but my concern is that if he goes to the floor, he will not get the proper suctioning needed. Will continue IMCU service 06/26/2019: Will discontinue vent from room. patient was placed on vent last night. Not sure why. Will place orders for continued T-piece. Appears he was doing well with no issues. If tolerates being off vent tonight, transition to step down tomorrow. Increase HCTZ to 25 06/25/2019: Continue T-piece today as tolerated. Only rest of vent if needed. If not needed tonight then will discontinue vent from room. Spoke with IR, and they will remove Perm cath today as this could be a cause of fevers. Follow up cultures and ID recs. Will increase Free H2O to [id number]. Change steroids to 10 PO starting tomorrow morning. Added scheduled BP meds. 06/24/2019: Will attempt T-piece later today, if tolerates, then will continue trial indefinitely. PT/OT will need to start seeing him again. Will drop steroids to 10 daily (PO) starting Friday morning. 06/23/2019: PSV all day today and tomorrow. Will start T-piece either tomorrow or Friday. Tolerating Feeds 06/22/2019: Patient scheduled for OR today. Plan as outlined in Dr. Saez's note from yesterday. Discussed with patient again this am. Really appreciate surgery help with this and the promptness of procedure. Will follow up post-op later today. 06/21/2019: Unfortunately re-intubated last week. Will need Trach and Peg, but I doubt peg will happen secondary to his size. Will discuss with surgery and maybe they can just put in a number 6 XLT from the start. I think he will get off the vent relatively quickly and can start to eat. This trach will be indefinite. I have explained this to him. I have not seen his family at the bedside during this admission but Im told they come in the evenings. 06/12/2019: Started HCTZ 50 daily and Labetalol 100 TID. Will increase Labetalol to 200 TID. Already on Clonidine patch. Continue Minoxidil. Will start to wean drip. PT/OT. Feeds through NG now that this is in place. Will need speech re-evaluation. Will order NT suctioning at least [id number] for the next 24 hours. 06/11/2019: Bipap at night and PRN. Na levels are increasing. Agree with D5W. Unable to place DH, several nurses tried. Will ask speech to come by and reassess now that patient is more willing to cooperate. . Continue PT/OT, sat up on side of bed yesterday. Continue IMCU monitoring for now. As stated below, patient was intubated for 37 days. CCT 31 minutes. Subjective Date of service: 07/30/19 Principal diagnosis: anemia - LOw PLT Interval history: no acute events. Pulm status is unchanged. On humidified air via T-piece. NO oxygen bleeding through with Sat of 97. Objective Vital Signs - 12hr 07/29/19 07/29/19 07/29/19 21:47 22:00 22:39 Temperature Pulse Rate 111 H Respiratory 20 Rate Blood Pressure 117/72 O2 Sat by Pulse Oximetry O2 Sat by Pulse 95 Oximetry [ Assessment] 07/29/19 07/29/19 07/30/19 22:40 23:08 03:27 Temperature 99.2 F 100.4 F H Pulse Rate 95 H 97 H Respiratory 19 20 Rate Blood Pressure 125/76 146/71 O2 Sat by Pulse 95 93 95 Oximetry O2 Sat by Pulse Oximetry [ Assessment] 07/30/19 07/30/19 07/30/19 06:10 08:11 08:54 Temperature 98.9 F Pulse Rate 97 H 98 H Respiratory 14 Rate Blood Pressure 146/71 121/95 128/73 O2 Sat by Pulse 95 Oximetry O2 Sat by Pulse Oximetry [ Assessment] 07/30/19 07/30/19 08:55 08:58 Temperature Pulse Rate Respiratory Rate Blood Pressure O2 Sat by Pulse 97 Oximetry O2 Sat by Pulse 97 Oximetry [ Assessment] Constitutional: other (morbidly obese male,on trach tpiece) Eyes: non-icteric ENT: oropharynx moist Neck: supple, other (extremely large in circumference trach in place) Effort: normal Ascultation: Bilateral: diminished breath sounds (secondary to body habitus), rhonchi, other (Upper airway noises due to secretions) Cardiovascular: regular rate and rhythm (no mrg) Gastrointestinal: normoactive bowel sounds, soft, non-tender, other (obese) Integumentary: other (L hand is wrapped) Extremities: no cyanosis, pink and warm, other (1+ generalized edema) Neurologic: normal mental status, non-focal exam Psychiatric: mood appropriate, affect normal CBC and BMP: 07/27/19 08:00 07/27/19 08:00 ABG, PT/INR, D-dimer: ABG POC ABG pH 7.462 (7.35-7.45) H 06/05/19 03:52 ABG pH 7.469 pH Units (7.350-7.450) H 06/23/19 02:00 POC ABG pCO2 39.8 (35-45) 06/05/19 03:52 ABG pCO2 39.4 mm Hg 06/23/19 02:00 POC ABG pO2 86 (80-105) 06/05/19 03:52 ABG pO2 58.7 mm Hg (80.0-90.0) L 06/23/19 02:00 POC ABG HCO3 28.4 (22-26 mml/L) 06/05/19 03:52 POC ABG Total CO2 30 (23-27mmol/L) 06/05/19 03:52 POC ABG O2 Sat 97 06/05/19 03:52 ABG O2 Saturation 94.6 % (95.0-99.0) L 06/23/19 02:00 PT/INR, D-dimer PT 15.4 Sec. (12.2-14.9) H 05/01/19 Unknown INR 1.23 (0.87-1.13) H 05/01/19 Unknown Abnormal lab findings: Abnormal Labs 05/01/19 05/01/19 05/01/19 17:50 19:26 22:36 WBC RBC Hgb Hct MCV MCH MCHC RDW Plt Count Lymph % (Auto) [place] % (Auto) Eos % (Auto) Lymph # [place] # Eos # Seg Neutrophils % Seg Neuts % (Manual) Lymphocytes % (Manual) Monocytes % (Manual) Eosinophils % (Manual) Nucleated RBC % Seg Neutrophils # Seg Neutrophils # Man Lymphocytes # (Manual) Monocytes # (Manual) Eosinophils # (Manual) PT INR APTT Fibrinogen POC ABG pH 7.272 L 7.331 L ABG pH POC ABG pCO2 52.8 H POC ABG pO2 ABG pO2 ABG HCO3 ABG O2 Saturation ABG Base Excess ABG Hemoglobin Oxyhemoglobin Sodium 136 L Potassium 6.5 H* Chloride 97.2 L Carbon Dioxide BUN 60 H Creatinine Glucose 113 H POC Glucose Uric Acid Calcium Phosphorus Magnesium 2.40 H Iron TIBC AST 139 H ALT 154 H Total Creatine Kinase CK-MB (CK-2) Troponin T NT-Pro-B Natriuret Pep Total Protein Albumin 3.8 L Triglycerides HDL Cholesterol Folate Urine WBC (Auto) Urine Creatinine Urine Total Protein Vancomycin Trough 05/01/19 05/01/19 05/01/19 Unknown Unknown Unknown WBC 16.1 H RBC Hgb Hct MCV MCH MCHC RDW 17.2 H Plt Count Lymph % (Auto) [place] % (Auto) 9.6 H Eos % (Auto) Lymph # [place] # 1.5 H Eos # Seg Neutrophils % 73.0 H Seg Neuts % (Manual) Lymphocytes % (Manual) Monocytes % (Manual) Eosinophils % (Manual) Nucleated RBC % Seg Neutrophils # 11.7 H Seg Neutrophils # Man Lymphocytes # (Manual) Monocytes # (Manual) Eosinophils # (Manual) PT 15.4 H INR 1.23 H APTT 22.7 L Fibrinogen POC ABG pH ABG pH POC ABG pCO2 POC ABG pO2 ABG pO2 ABG HCO3 ABG O2 Saturation ABG Base Excess ABG Hemoglobin Oxyhemoglobin Sodium Potassium Chloride Carbon Dioxide BUN Creatinine Glucose POC Glucose Uric Acid Calcium Phosphorus Magnesium Iron TIBC AST ALT Total Creatine Kinase CK-MB (CK-2) Troponin T NT-Pro-B Natriuret Pep 6831 H Total Protein Albumin Triglycerides HDL Cholesterol Folate Urine WBC (Auto) Urine Creatinine Urine Total Protein Vancomycin Trough 05/01/19 05/02/19 05/02/19 Unknown 00:06 00:06 WBC RBC Hgb Hct MCV MCH MCHC RDW Plt Count Lymph % (Auto) [place] % (Auto) Eos % (Auto) Lymph # [place] # Eos # Seg Neutrophils % Seg Neuts % (Manual) Lymphocytes % (Manual) Monocytes % (Manual) Eosinophils % (Manual) Nucleated RBC % Seg Neutrophils # Seg Neutrophils # Man Lymphocytes # (Manual) Monocytes # (Manual) Eosinophils # (Manual) PT INR APTT Fibrinogen POC ABG pH ABG pH POC ABG pCO2 POC ABG pO2 ABG pO2 ABG HCO3 ABG O2 Saturation ABG Base Excess ABG Hemoglobin Oxyhemoglobin Sodium Potassium Chloride Carbon Dioxide BUN Creatinine Glucose POC Glucose Uric Acid Calcium Phosphorus 4.90 H Magnesium Iron TIBC AST ALT Total Creatine Kinase 226 H CK-MB (CK-2) 5.7 H Troponin T 0.044 H NT-Pro-B Natriuret Pep Total Protein Albumin Triglycerides 182 H HDL Cholesterol 18 L Folate Urine WBC (Auto) Urine Creatinine Urine Total Protein Vancomycin Trough 05/02/19 05/02/19 05/02/19 02:08 04:40 04:41 WBC 17.6 H RBC Hgb Hct MCV MCH 27 L MCHC RDW 17.4 H Plt Count Lymph % (Auto) 10.2 L [place] % (Auto) 11.0 H Eos % (Auto) Lymph # [place] # 1.9 H Eos # Seg Neutrophils % 78.0 H Seg Neuts % (Manual) Lymphocytes % (Manual) Monocytes % (Manual) Eosinophils % (Manual) Nucleated RBC % Seg Neutrophils # 13.8 H Seg Neutrophils # Man Lymphocytes # (Manual) Monocytes # (Manual) Eosinophils # (Manual) PT INR APTT Fibrinogen POC ABG pH ABG pH POC ABG pCO2 46.8 H POC ABG pO2 63 L ABG pO2 ABG HCO3 ABG O2 Saturation ABG Base Excess ABG Hemoglobin Oxyhemoglobin Sodium Potassium Chloride 96.3 L Carbon Dioxide BUN 63 H Creatinine 1.7 H Glucose POC Glucose Uric Acid Calcium Phosphorus Magnesium Iron TIBC AST ALT Total Creatine Kinase CK-MB (CK-2) Troponin T NT-Pro-B Natriuret Pep Total Protein Albumin Triglycerides HDL Cholesterol Folate Urine WBC (Auto) Urine Creatinine Urine Total Protein Vancomycin Trough 05/02/19 05/02/19 05/02/19 04:41 04:41 16:05 WBC RBC Hgb Hct MCV MCH MCHC RDW Plt Count Lymph % (Auto) [place] % (Auto) Eos % (Auto) Lymph # [place] # Eos # Seg Neutrophils % Seg Neuts % (Manual) Lymphocytes % (Manual) Monocytes % (Manual) Eosinophils % (Manual) Nucleated RBC % Seg Neutrophils # Seg Neutrophils # Man Lymphocytes # (Manual) Monocytes # (Manual) Eosinophils # (Manual) PT INR APTT Fibrinogen POC ABG pH ABG pH POC ABG pCO2 POC ABG pO2 ABG pO2 66.6 L ABG HCO3 31.9 H ABG O2 Saturation 92.5 L ABG Base Excess 5.8 H ABG Hemoglobin 13.3 L Oxyhemoglobin 90.6 L Sodium Potassium Chloride 97.2 L Carbon Dioxide BUN 61 H Creatinine 1.8 H Glucose POC Glucose Uric Acid Calcium Phosphorus Magnesium Iron TIBC AST ALT Total Creatine Kinase CK-MB (CK-2) 5.2 H Troponin T 0.067 H D NT-Pro-B Natriuret Pep Total Protein Albumin Triglycerides HDL Cholesterol Folate Urine WBC (Auto) Urine Creatinine Urine Total Protein Vancomycin Trough 05/02/19 05/03/19 05/03/19 20:39 04:35 05:05 WBC 11.8 H RBC Hgb Hct MCV MCH 27 L MCHC 31 L RDW 17.2 H Plt Count Lymph % (Auto) [place] % (Auto) Eos % (Auto) Lymph # [place] # Eos # Seg Neutrophils % Seg Neuts % (Manual) Lymphocytes % (Manual) Monocytes % (Manual) Eosinophils % (Manual) Nucleated RBC % Seg Neutrophils # Seg Neutrophils # Man Lymphocytes # (Manual) Monocytes # (Manual) Eosinophils # (Manual) PT INR APTT Fibrinogen POC ABG pH ABG pH POC ABG pCO2 53.6 H 54.0 H POC ABG pO2 55 L 63 L ABG pO2 ABG HCO3 ABG O2 Saturation ABG Base Excess ABG Hemoglobin Oxyhemoglobin Sodium Potassium Chloride Carbon Dioxide BUN Creatinine Glucose POC Glucose Uric Acid Calcium Phosphorus Magnesium Iron TIBC AST ALT Total Creatine Kinase CK-MB (CK-2) Troponin T NT-Pro-B Natriuret Pep Total Protein Albumin Triglycerides HDL Cholesterol Folate Urine WBC (Auto) Urine Creatinine Urine Total Protein Vancomycin Trough 05/03/19 05/03/19 05/03/19 05:05 10:55 16:48 WBC RBC Hgb Hct MCV MCH MCHC RDW Plt Count Lymph % (Auto) [place] % (Auto) Eos % (Auto) Lymph # [place] # Eos # Seg Neutrophils % Seg Neuts % (Manual) Lymphocytes % (Manual) Monocytes % (Manual) Eosinophils % (Manual) Nucleated RBC % Seg Neutrophils # Seg Neutrophils # Man Lymphocytes # (Manual) Monocytes # (Manual) Eosinophils # (Manual) PT INR APTT Fibrinogen POC ABG pH 7.604 H ABG pH POC ABG pCO2 POC ABG pO2 58 L ABG pO2 ABG HCO3 ABG O2 Saturation ABG Base Excess ABG Hemoglobin Oxyhemoglobin Sodium Potassium Chloride Carbon Dioxide BUN 52 H Creatinine 1.9 H Glucose 103 H POC Glucose Uric Acid Calcium Phosphorus Magnesium Iron TIBC AST ALT Total Creatine Kinase CK-MB (CK-2) Troponin T NT-Pro-B Natriuret Pep Total Protein Albumin Triglycerides HDL Cholesterol Folate Urine WBC (Auto) 33.0 H Urine Creatinine Urine Total Protein Vancomycin Trough 05/04/19 05/04/19 05/04/19 04:49 06:50 06:50 WBC 16.0 H RBC Hgb Hct MCV MCH 27 L MCHC 31 L RDW 17.8 H Plt Count Lymph % (Auto) [place] % (Auto) Eos % (Auto) Lymph # [place] # Eos # Seg Neutrophils % Seg Neuts % (Manual) Lymphocytes % (Manual) Monocytes % (Manual) Eosinophils % (Manual) Nucleated RBC % Seg Neutrophils # Seg Neutrophils # Man Lymphocytes # (Manual) Monocytes # (Manual) Eosinophils # (Manual) PT INR APTT Fibrinogen POC ABG pH 7.273 L ABG pH POC ABG pCO2 POC ABG pO2 ABG pO2 ABG HCO3 ABG O2 Saturation ABG Base Excess ABG Hemoglobin Oxyhemoglobin Sodium 148 H Potassium 5.5 H Chloride Carbon Dioxide BUN 53 H Creatinine 3.3 H D Glucose 106 H POC Glucose Uric Acid Calcium 8.3 L Phosphorus Magnesium Iron TIBC AST ALT Total Creatine Kinase CK-MB (CK-2) Troponin T NT-Pro-B Natriuret Pep Total Protein Albumin Triglycerides HDL Cholesterol Folate Urine WBC (Auto) Urine Creatinine Urine Total Protein Vancomycin Trough 05/05/19 05/05/19 05/05/19 00:05 04:30 05:00 WBC RBC Hgb Hct MCV MCH MCHC RDW Plt Count Lymph % (Auto) [place] % (Auto) Eos % (Auto) Lymph # [place] # Eos # Seg Neutrophils % Seg Neuts % (Manual) Lymphocytes % (Manual) Monocytes % (Manual) Eosinophils % (Manual) Nucleated RBC % Seg Neutrophils # Seg Neutrophils # Man Lymphocytes # (Manual) Monocytes # (Manual) Eosinophils # (Manual) PT INR APTT Fibrinogen POC ABG pH 7.225 L ABG pH POC ABG pCO2 > 70 H POC ABG pO2 ABG pO2 ABG HCO3 ABG O2 Saturation ABG Base Excess ABG Hemoglobin Oxyhemoglobin Sodium 151 H Potassium 5.1 H Chloride Carbon Dioxide BUN 64 H Creatinine 3.5 H Glucose 117 H POC Glucose 141 H Uric Acid Calcium 7.5 L Phosphorus Magnesium Iron TIBC AST 93 H ALT 65 H Total Creatine Kinase CK-MB (CK-2) Troponin T NT-Pro-B Natriuret Pep Total Protein Albumin 2.9 L Triglycerides HDL Cholesterol Folate Urine WBC (Auto) Urine Creatinine Urine Total Protein Vancomycin Trough 05/05/19 05/05/19 05/05/19 05:00 12:02 17:46 WBC 12.0 H RBC Hgb 11.3 L Hct MCV MCH 27 L MCHC 30 L RDW 18.4 H Plt Count Lymph % (Auto) 7.9 L [place] % (Auto) 10.2 H Eos % (Auto) Lymph # 1.0 L [place] # 1.2 H Eos # Seg Neutrophils % 80.8 H Seg Neuts % (Manual) Lymphocytes % (Manual) Monocytes % (Manual) Eosinophils % (Manual) Nucleated RBC % Seg Neutrophils # 9.7 H Seg Neutrophils # Man Lymphocytes # (Manual) Monocytes # (Manual) Eosinophils # (Manual) PT INR APTT Fibrinogen POC ABG pH ABG pH POC ABG pCO2 POC ABG pO2 ABG pO2 ABG HCO3 ABG O2 Saturation ABG Base Excess ABG Hemoglobin Oxyhemoglobin Sodium Potassium Chloride Carbon Dioxide BUN Creatinine Glucose POC Glucose 125 H 112 H Uric Acid Calcium Phosphorus Magnesium Iron TIBC AST ALT Total Creatine Kinase CK-MB (CK-2) Troponin T NT-Pro-B Natriuret Pep Total Protein Albumin Triglycerides HDL Cholesterol Folate Urine WBC (Auto) Urine Creatinine Urine Total Protein Vancomycin Trough 05/05/19 05/06/19 05/06/19 23:42 03:58 04:45 WBC 11.4 H RBC Hgb 10.7 L Hct 34.2 L MCV MCH 27 L MCHC 31 L RDW 16.9 H Plt Count Lymph % (Auto) [place] % (Auto) Eos % (Auto) Lymph # [place] # Eos # Seg Neutrophils % Seg Neuts % (Manual) Lymphocytes % (Manual) Monocytes % (Manual) Eosinophils % (Manual) Nucleated RBC % Seg Neutrophils # Seg Neutrophils # Man Lymphocytes # (Manual) Monocytes # (Manual) Eosinophils # (Manual) PT INR APTT Fibrinogen POC ABG pH ABG pH POC ABG pCO2 62.4 H POC ABG pO2 111 H ABG pO2 ABG HCO3 ABG O2 Saturation ABG Base Excess ABG Hemoglobin Oxyhemoglobin Sodium Potassium Chloride Carbon Dioxide BUN Creatinine Glucose POC Glucose 128 H Uric Acid Calcium Phosphorus Magnesium Iron TIBC AST ALT Total Creatine Kinase CK-MB (CK-2) Troponin T NT-Pro-B Natriuret Pep Total Protein Albumin Triglycerides HDL Cholesterol Folate Urine WBC (Auto) Urine Creatinine Urine Total Protein Vancomycin Trough 05/06/19 05/06/1905/06/19 04:45 05:33 12:30 WBC RBC Hgb Hct MCV MCH MCHC RDW Plt Count Lymph % (Auto) [place] % (Auto) Eos % (Auto) Lymph # [place] # Eos # Seg Neutrophils % Seg Neuts % (Manual) Lymphocytes % (Manual) Monocytes % (Manual) Eosinophils % (Manual) Nucleated RBC % Seg Neutrophils # Seg Neutrophils # Man Lymphocytes # (Manual) Monocytes # (Manual) Eosinophils # (Manual) PT INR APTT Fibrinogen POC ABG pH ABG pH POC ABG pCO2 POC ABG pO2 ABG pO2 ABG HCO3 ABG O2 Saturation ABG Base Excess ABG Hemoglobin Oxyhemoglobin Sodium 149 H Potassium Chloride Carbon Dioxide 31 H BUN 67 H Creatinine 3.2 H Glucose 125 H POC Glucose 117 H 116 H Uric Acid Calcium 7.5 L Phosphorus Magnesium Iron TIBC AST ALT Total Creatine Kinase CK-MB (CK-2) Troponin T NT-Pro-B Natriuret Pep Total Protein Albumin Triglycerides HDL Cholesterol Folate Urine WBC (Auto) Urine Creatinine Urine Total Protein Vancomycin Trough 05/06/19 05/06/19 05/07/19 18:34 23:16 05:22 WBC RBC Hgb Hct MCV MCH MCHC RDW Plt Count Lymph % (Auto) [place] % (Auto) Eos % (Auto) Lymph # [place] # Eos # Seg Neutrophils % Seg Neuts % (Manual) Lymphocytes % (Manual) Monocytes % (Manual) Eosinophils % (Manual) Nucleated RBC % Seg Neutrophils # Seg Neutrophils # Man Lymphocytes # (Manual) Monocytes # (Manual) Eosinophils # (Manual) PT INR APTT Fibrinogen POC ABG pH ABG pH POC ABG pCO2 POC ABG pO2 ABG pO2 ABG HCO3 ABG O2 Saturation ABG Base Excess ABG Hemoglobin Oxyhemoglobin Sodium Potassium Chloride Carbon Dioxide BUN Creatinine Glucose POC Glucose 128 H 143 H 166 H Uric Acid Calcium Phosphorus Magnesium Iron TIBC AST ALT Total Creatine Kinase CK-MB (CK-2) Troponin T NT-Pro-B Natriuret Pep Total Protein Albumin Triglycerides HDL Cholesterol Folate Urine WBC (Auto) Urine Creatinine Urine Total Protein Vancomycin Trough 05/07/19 05/07/19 05/07/19 06:33 07:03 09:35 WBC RBC Hgb Hct MCV MCH MCHC RDW Plt Count Lymph % (Auto) [place] % (Auto) Eos % (Auto) Lymph # [place] # Eos # Seg Neutrophils % Seg Neuts % (Manual) Lymphocytes % (Manual) Monocytes % (Manual) Eosinophils % (Manual) Nucleated RBC % Seg Neutrophils # Seg Neutrophils # Man Lymphocytes # (Manual) Monocytes # (Manual) Eosinophils # (Manual) PT INR APTT Fibrinogen POC ABG pH 7.263 L 7.288 L ABG pH POC ABG pCO2 POC ABG pO2 51 L 56 L ABG pO2 ABG HCO3 ABG O2 Saturation ABG Base Excess ABG Hemoglobin Oxyhemoglobin Sodium Potassium Chloride Carbon Dioxide BUN 76 H Creatinine 3.2 H Glucose 147 H POC Glucose Uric Acid Calcium 7.9 L Phosphorus Magnesium Iron TIBC AST ALT Total Creatine Kinase CK-MB (CK-2) Troponin T NT-Pro-B Natriuret Pep Total Protein Albumin Triglycerides HDL Cholesterol Folate Urine WBC (Auto) Urine Creatinine Urine Total Protein Vancomycin Trough 05/07/19 05/07/19 05/07/19 09:35 12:17 13:45 WBC 13.4 H RBC Hgb 11.6 L Hct MCV MCH 27 L MCHC 31 L RDW 17.5 H Plt Count Lymph % (Auto) [place] % (Auto) Eos % (Auto) Lymph # [place] # Eos # Seg Neutrophils % Seg Neuts % (Manual) Lymphocytes % (Manual) Monocytes % (Manual) Eosinophils % (Manual) Nucleated RBC % Seg Neutrophils # Seg Neutrophils # Man Lymphocytes # (Manual) Monocytes # (Manual) Eosinophils # (Manual) PT INR APTT Fibrinogen POC ABG pH ABG pH POC ABG pCO2 POC ABG pO2 ABG pO2 ABG HCO3 ABG O2 Saturation ABG Base Excess ABG Hemoglobin Oxyhemoglobin Sodium Potassium Chloride Carbon Dioxide BUN Creatinine Glucose POC Glucose 130 H Uric Acid 18.0 H Calcium Phosphorus Magnesium Iron TIBC AST ALT Total Creatine Kinase CK-MB (CK-2) Troponin T NT-Pro-B Natriuret Pep Total Protein Albumin Triglycerides HDL Cholesterol Folate Urine WBC (Auto) Urine Creatinine Urine Total Protein Vancomycin Trough 05/07/19 05/07/19 05/08/19 17:39 22:40 05:06 WBC RBC Hgb Hct MCV MCH MCHC RDW Plt Count Lymph % (Auto) [place] % (Auto) Eos % (Auto) Lymph # [place] # Eos # Seg Neutrophils % Seg Neuts % (Manual) Lymphocytes % (Manual) Monocytes % (Manual) Eosinophils % (Manual) Nucleated RBC % Seg Neutrophils # Seg Neutrophils # Man Lymphocytes # (Manual) Monocytes # (Manual) Eosinophils # (Manual) PT INR APTT Fibrinogen POC ABG pH ABG pH POC ABG pCO2 POC ABG pO2 ABG pO2 ABG HCO3 ABG O2 Saturation ABG Base Excess ABG Hemoglobin Oxyhemoglobin Sodium Potassium Chloride Carbon Dioxide BUN Creatinine Glucose POC Glucose 116 H 148 H Uric Acid Calcium Phosphorus Magnesium Iron TIBC AST ALT Total Creatine Kinase CK-MB (CK-2) Troponin T NT-Pro-B Natriuret Pep Total Protein Albumin Triglycerides HDL Cholesterol Folate Urine WBC (Auto) Urine Creatinine 292.8 H Urine Total Protein 269 H Vancomycin Trough 05/08/19 05/08/19 05/08/19 05:32 11:28 13:48 WBC RBC Hgb Hct MCV MCH MCHC RDW Plt Count Lymph % (Auto) [place] % (Auto) Eos % (Auto) Lymph # [place] # Eos # Seg Neutrophils % Seg Neuts % (Manual) Lymphocytes % (Manual) Monocytes % (Manual) Eosinophils % (Manual) Nucleated RBC % Seg Neutrophils # Seg Neutrophils # Man Lymphocytes # (Manual) Monocytes # (Manual) Eosinophils # (Manual) PT INR APTT Fibrinogen POC ABG pH ABG pH POC ABG pCO2 45.4 H POC ABG pO2 64 L ABG pO2 ABG HCO3 ABG O2 Saturation ABG Base Excess ABG Hemoglobin Oxyhemoglobin Sodium Potassium Chloride Carbon Dioxide BUN 73 H Creatinine 2.7 H Glucose 127 H POC Glucose 107 H Uric Acid Calcium 7.6 L Phosphorus Magnesium Iron TIBC AST ALT Total Creatine Kinase CK-MB (CK-2) Troponin T NT-Pro-B Natriuret Pep Total Protein Albumin Triglycerides HDL Cholesterol Folate Urine WBC (Auto) Urine Creatinine Urine Total Protein Vancomycin Trough 05/08/19 05/09/19 05/09/19 17:48 04:50 04:53 WBC RBC 3.07 L Hgb 8.5 L D Hct 29.3 L D MCV 96 H MCH MCHC 29 L RDW 18.1 H Plt Count Lymph % (Auto) [place] % (Auto) Eos % (Auto) Lymph # [place] # Eos # Seg Neutrophils % Seg Neuts % (Manual) Lymphocytes % (Manual) Monocytes % (Manual) Eosinophils % (Manual) Nucleated RBC % Seg Neutrophils # Seg Neutrophils # Man Lymphocytes # (Manual) Monocytes # (Manual) Eosinophils # (Manual) PT INR APTT Fibrinogen POC ABG pH 7.316 L ABG pH POC ABG pCO2 66.0 H POC ABG pO2 69 L ABG pO2 ABG HCO3 ABG O2 Saturation ABG Base Excess ABG Hemoglobin Oxyhemoglobin Sodium Potassium Chloride Carbon Dioxide BUN Creatinine Glucose POC Glucose 155 H Uric Acid Calcium Phosphorus Magnesium Iron TIBC AST ALT Total Creatine Kinase CK-MB (CK-2) Troponin T NT-Pro-B Natriuret Pep Total Protein Albumin Triglycerides HDL Cholesterol Folate Urine WBC (Auto) Urine Creatinine Urine Total Protein Vancomycin Trough 05/09/19 05/09/19 05/09/19 05:46 07:24 12:10 WBC RBC Hgb Hct MCV MCH MCHC RDW Plt Count Lymph % (Auto) [place] % (Auto) Eos % (Auto) Lymph # [place] # Eos # Seg Neutrophils % Seg Neuts % (Manual) Lymphocytes % (Manual) Monocytes % (Manual) Eosinophils % (Manual) Nucleated RBC % Seg Neutrophils # Seg Neutrophils # Man Lymphocytes # (Manual) Monocytes # (Manual) Eosinophils # (Manual) PT INR APTT Fibrinogen POC ABG pH ABG pH POC ABG pCO2 POC ABG pO2 ABG pO2 ABG HCO3 ABG O2 Saturation ABG Base Excess ABG Hemoglobin Oxyhemoglobin Sodium Potassium Chloride Carbon Dioxide BUN 73 H Creatinine 2.4 H Glucose 153 H POC Glucose 123 H 148 H Uric Acid Calcium 8.2 L Phosphorus Magnesium Iron TIBC AST 45 H ALT Total Creatine Kinase CK-MB (CK-2) Troponin T NT-Pro-B Natriuret Pep Total Protein 6.0 L Albumin 1.9 L Triglycerides HDL Cholesterol Folate Urine WBC (Auto) Urine Creatinine Urine Total Protein Vancomycin Trough 05/09/19 05/09/19 05/10/19 18:23 23:26 04:52 WBC RBC Hgb Hct MCV MCH MCHC RDW Plt Count Lymph % (Auto) [place] % (Auto) Eos % (Auto) Lymph # [place] # Eos # Seg Neutrophils % Seg Neuts % (Manual) Lymphocytes % (Manual) Monocytes % (Manual) Eosinophils % (Manual) Nucleated RBC % Seg Neutrophils # Seg Neutrophils # Man Lymphocytes # (Manual) Monocytes # (Manual) Eosinophils # (Manual) PT INR APTT Fibrinogen POC ABG pH 7.305 L ABG pH POC ABG pCO2 62.6 H POC ABG pO2 ABG pO2 ABG HCO3 ABG O2 Saturation ABG Base Excess ABG Hemoglobin Oxyhemoglobin Sodium Potassium Chloride Carbon Dioxide BUN Creatinine Glucose POC Glucose 147 H 121 H Uric Acid Calcium Phosphorus Magnesium Iron TIBC AST ALT Total Creatine Kinase CK-MB (CK-2) Troponin T NT-Pro-B Natriuret Pep Total Protein Albumin Triglycerides HDL Cholesterol Folate Urine WBC (Auto) Urine Creatinine Urine Total Protein Vancomycin Trough 05/10/19 05/10/19 05/10/19 05:00 05:00 05:50 WBC RBC Hgb 10.3 L Hct 33.7 L MCV MCH 27 L MCHC 31 L RDW 17.0 H Plt Count Lymph % (Auto) [place] % (Auto) Eos % (Auto) Lymph # [place] # Eos # Seg Neutrophils % Seg Neuts % (Manual) Lymphocytes % (Manual) Monocytes % (Manual) Eosinophils % (Manual) Nucleated RBC % Seg Neutrophils # Seg Neutrophils # Man Lymphocytes # (Manual) Monocytes # (Manual) Eosinophils # (Manual) PT INR APTT Fibrinogen POC ABG pH ABG pH POC ABG pCO2 POC ABG pO2 ABG pO2 ABG HCO3 ABG O2 Saturation ABG Base Excess ABG Hemoglobin Oxyhemoglobin Sodium 147 H Potassium Chloride Carbon Dioxide BUN 70 H Creatinine 2.6 H Glucose 155 H POC Glucose 158 H Uric Acid Calcium 8.2 L Phosphorus Magnesium Iron TIBC AST ALT Total Creatine Kinase CK-MB (CK-2) Troponin T NT-Pro-B Natriuret Pep Total Protein 6.1 L Albumin 2.5 L Triglycerides HDL Cholesterol Folate Urine WBC (Auto) Urine Creatinine Urine Total Protein Vancomycin Trough 05/10/19 05/11/19 05/11/19 13:14 07:26 11:40 WBC RBC Hgb Hct MCV MCH MCHC RDW Plt Count Lymph % (Auto) [place] % (Auto) Eos % (Auto) Lymph # [place] # Eos # Seg Neutrophils % Seg Neuts % (Manual) Lymphocytes % (Manual) Monocytes % (Manual) Eosinophils % (Manual) Nucleated RBC % Seg Neutrophils # Seg Neutrophils # Man Lymphocytes # (Manual) Monocytes # (Manual) Eosinophils # (Manual) PT INR APTT Fibrinogen POC ABG pH ABG pH POC ABG pCO2 48.0 H POC ABG pO2 58 L ABG pO2 ABG HCO3 ABG O2 Saturation ABG Base Excess ABG Hemoglobin Oxyhemoglobin Sodium 147 H Potassium Chloride 107.2 H Carbon Dioxide BUN 67 H Creatinine 2.6 H Glucose 121 H POC Glucose 159 H Uric Acid Calcium Phosphorus Magnesium Iron TIBC AST ALT Total Creatine Kinase CK-MB (CK-2) Troponin T NT-Pro-B Natriuret Pep Total Protein Albumin Triglycerides HDL Cholesterol Folate Urine WBC (Auto) Urine Creatinine Urine Total Protein Vancomycin Trough 05/11/19 05/11/19 05/12/19 18:13 23:46 04:40 WBC RBC Hgb Hct MCV MCH MCHC RDW Plt Count Lymph % (Auto) [place] % (Auto) Eos % (Auto) Lymph # [place] # Eos # Seg Neutrophils % Seg Neuts % (Manual) Lymphocytes % (Manual) Monocytes % (Manual) Eosinophils % (Manual) Nucleated RBC % Seg Neutrophils # Seg Neutrophils # Man Lymphocytes # (Manual) Monocytes # (Manual) Eosinophils # (Manual) PT INR APTT Fibrinogen POC ABG pH ABG pH 7.264 L POC ABG pCO2 POC ABG pO2 ABG pO2 66.8 L ABG HCO3 31.0 H ABG O2 Saturation 92.0 L ABG Base Excess ABG Hemoglobin 10.3 L Oxyhemoglobin 90.1 L Sodium Potassium Chloride Carbon Dioxide BUN Creatinine Glucose POC Glucose 120 H 121 H Uric Acid Calcium Phosphorus Magnesium Iron TIBC AST ALT Total Creatine Kinase CK-MB (CK-2) Troponin T NT-Pro-B Natriuret Pep Total Protein Albumin Triglycerides HDL Cholesterol Folate Urine WBC (Auto) Urine Creatinine Urine Total Protein Vancomycin Trough 05/12/19 05/12/19 05/12/19 04:45 04:45 11:14 WBC RBC Hgb 10.2 L Hct 32.4 L MCV MCH MCHC 31 L RDW 17.2 H Plt Count Lymph % (Auto) [place] % (Auto) Eos % (Auto) Lymph # [place] # Eos # Seg Neutrophils % Seg Neuts % (Manual) Lymphocytes % (Manual) Monocytes % (Manual) Eosinophils % (Manual) Nucleated RBC % Seg Neutrophils # Seg Neutrophils # Man Lymphocytes # (Manual) Monocytes # (Manual) Eosinophils # (Manual) PT INR APTT Fibrinogen POC ABG pH 7.284 L ABG pH POC ABG pCO2 67.8 H POC ABG pO2 ABG pO2 ABG HCO3 ABG O2 Saturation ABG Base Excess ABG Hemoglobin Oxyhemoglobin Sodium Potassium Chloride Carbon Dioxide BUN 63 H Creatinine 2.4 H Glucose 110 H POC Glucose Uric Acid Calcium Phosphorus Magnesium Iron TIBC AST ALT Total Creatine Kinase CK-MB (CK-2) Troponin T NT-Pro-B Natriuret Pep Total Protein Albumin Triglycerides HDL Cholesterol Folate Urine WBC (Auto) Urine Creatinine Urine Total Protein Vancomycin Trough 05/12/19 05/12/19 05/13/19 11:44 23:11 04:30 WBC RBC Hgb Hct MCV MCH MCHC RDW Plt Count Lymph % (Auto) [place] % (Auto) Eos % (Auto) Lymph # [place] # Eos # Seg Neutrophils % Seg Neuts % (Manual) Lymphocytes % (Manual) Monocytes % (Manual) Eosinophils % (Manual) Nucleated RBC % Seg Neutrophils # Seg Neutrophils # Man Lymphocytes # (Manual) Monocytes # (Manual) Eosinophils # (Manual) PT INR APTT Fibrinogen POC ABG pH ABG pH 7.288 L POC ABG pCO2 POC ABG pO2 ABG pO2 109.7 H ABG HCO3 30.9 H ABG O2 Saturation ABG Base Excess 3.2 H ABG Hemoglobin 9.6 L Oxyhemoglobin Sodium Potassium Chloride Carbon Dioxide BUN Creatinine Glucose POC Glucose 126 H 147 H Uric Acid Calcium Phosphorus Magnesium Iron TIBC AST ALT Total Creatine Kinase CK-MB (CK-2) Troponin T NT-Pro-B Natriuret Pep Total Protein Albumin Triglycerides HDL Cholesterol Folate Urine WBC (Auto) Urine Creatinine Urine Total Protein Vancomycin Trough 05/13/19 05/13/19 05/14/19 06:27 11:58 04:00 WBC RBC 3.16 L Hgb 9.3 L Hct 27.9 L MCV MCH MCHC RDW 17.1 H Plt Count Lymph % (Auto) [place] % (Auto) Eos % (Auto) Lymph # [place] # Eos # Seg Neutrophils % Seg Neuts % (Manual) Lymphocytes % (Manual) Monocytes % (Manual) Eosinophils % (Manual) Nucleated RBC % Seg Neutrophils # Seg Neutrophils # Man Lymphocytes # (Manual) Monocytes # (Manual) Eosinophils # (Manual) PT INR APTT Fibrinogen POC ABG pH ABG pH POC ABG pCO2 POC ABG pO2 ABG pO2 ABG HCO3 ABG O2 Saturation ABG Base Excess ABG Hemoglobin Oxyhemoglobin Sodium Potassium Chloride Carbon Dioxide BUN Creatinine Glucose POC Glucose 113 H 130 H Uric Acid Calcium Phosphorus Magnesium Iron TIBC AST ALT Total Creatine Kinase CK-MB (CK-2) Troponin T NT-Pro-B Natriuret Pep Total Protein Albumin Triglycerides HDL Cholesterol Folate Urine WBC (Auto) Urine Creatinine Urine Total Protein Vancomycin Trough 05/14/19 05/14/19 05/14/19 04:00 04:34 05:32 WBC RBC Hgb Hct MCV MCH MCHC RDW Plt Count Lymph % (Auto) [place] % (Auto) Eos % (Auto) Lymph # [place] # Eos # Seg Neutrophils % Seg Neuts % (Manual) Lymphocytes % (Manual) Monocytes % (Manual) Eosinophils % (Manual) Nucleated RBC % Seg Neutrophils # Seg Neutrophils # Man Lymphocytes # (Manual) Monocytes # (Manual) Eosinophils # (Manual) PT INR APTT Fibrinogen POC ABG pH 7.328 L ABG pH POC ABG pCO2 61.7 H POC ABG pO2 ABG pO2 ABG HCO3 ABG O2 Saturation ABG Base Excess ABG Hemoglobin Oxyhemoglobin Sodium 135 L D Potassium Chloride Carbon Dioxide BUN 57 H Creatinine 2.2 H Glucose 115 H POC Glucose 115 H Uric Acid Calcium 8.1 L Phosphorus Magnesium Iron TIBC AST ALT Total Creatine Kinase CK-MB (CK-2) Troponin T NT-Pro-B Natriuret Pep Total Protein Albumin Triglycerides HDL Cholesterol Folate Urine WBC (Auto) Urine Creatinine Urine Total Protein Vancomycin Trough 05/14/19 05/15/19 05/15/19 12:11 05:10 05:24 WBC RBC Hgb Hct MCV MCH MCHC RDW Plt Count Lymph % (Auto) [place] % (Auto) Eos % (Auto) Lymph # [place] # Eos # Seg Neutrophils % Seg Neuts % (Manual) Lymphocytes % (Manual) Monocytes % (Manual) Eosinophils % (Manual) Nucleated RBC % Seg Neutrophils # Seg Neutrophils # Man Lymphocytes # (Manual) Monocytes # (Manual) Eosinophils # (Manual) PT INR APTT Fibrinogen POC ABG pH ABG pH 7.342 L POC ABG pCO2 POC ABG pO2 ABG pO2 79.1 L ABG HCO3 28.2 H ABG O2 Saturation ABG Base Excess ABG Hemoglobin 7.0 L Oxyhemoglobin 94.4 L Sodium Potassium Chloride Carbon Dioxide BUN Creatinine Glucose POC Glucose 110 H 116 H Uric Acid Calcium Phosphorus Magnesium Iron TIBC AST ALT Total Creatine Kinase CK-MB (CK-2) Troponin T NT-Pro-B Natriuret Pep Total Protein Albumin Triglycerides HDL Cholesterol Folate Urine WBC (Auto) Urine Creatinine Urine Total Protein Vancomycin Trough 05/15/19 05/15/19 05/16/19 09:00 18:12 04:50 WBC RBC Hgb Hct MCV MCH MCHC RDW Plt Count Lymph % (Auto) [place] % (Auto) Eos % (Auto) Lymph # [place] # Eos # Seg Neutrophils % Seg Neuts % (Manual) Lymphocytes % (Manual) Monocytes % (Manual) Eosinophils % (Manual) Nucleated RBC % Seg Neutrophils # Seg Neutrophils # Man Lymphocytes # (Manual) Monocytes # (Manual) Eosinophils # (Manual) PT INR APTT Fibrinogen POC ABG pH ABG pH 7.250 L POC ABG pCO2 POC ABG pO2 ABG pO2 76.4 L ABG HCO3 ABG O2 Saturation 94.6 L ABG Base Excess -3.1 L ABG Hemoglobin 9.7 L Oxyhemoglobin 92.4 L Sodium Potassium Chloride Carbon Dioxide BUN Creatinine Glucose POC Glucose 110 H Uric Acid Calcium Phosphorus Magnesium Iron TIBC AST ALT Total Creatine Kinase CK-MB (CK-2) Troponin T NT-Pro-B Natriuret Pep Total Protein Albumin Triglycerides HDL Cholesterol Folate Urine WBC (Auto) Urine Creatinine Urine Total Protein Vancomycin Trough 20.5 H 05/16/19 05/16/19 05/17/19 05:50 05:50 04:20 WBC RBC 3.36 L 3.44 L Hgb 9.4 L 9.3 L Hct 29.1 L 29.7 L MCV MCH 27 L MCHC 31 L RDW 17.6 H 17.6 H Plt Count Lymph % (Auto) [place] % (Auto) Eos % (Auto) Lymph # [place] # Eos # Seg Neutrophils % Seg Neuts % (Manual) 77.0 H Lymphocytes % (Manual) 5.0 L Monocytes % (Manual) Eosinophils % (Manual) 10.0 H Nucleated RBC % Seg Neutrophils # Seg Neutrophils # Man Lymphocytes # (Manual) 0.5 L Monocytes # (Manual) Eosinophils # (Manual) 0.9 H PT INR APTT Fibrinogen POC ABG pH ABG pH POC ABG pCO2 POC ABG pO2 ABG pO2 ABG HCO3 ABG O2 Saturation ABG Base Excess ABG Hemoglobin Oxyhemoglobin Sodium Potassium Chloride Carbon Dioxide BUN 83 H Creatinine 4.4 H D Glucose 118 H POC Glucose Uric Acid Calcium Phosphorus Magnesium Iron TIBC AST ALT Total Creatine Kinase CK-MB (CK-2) Troponin T NT-Pro-B Natriuret Pep Total Protein Albumin Triglycerides HDL Cholesterol Folate Urine WBC (Auto) Urine Creatinine Urine Total Protein Vancomycin Trough 05/17/19 05/17/19 05/18/19 04:30 Unknown 01:50 WBC RBC 3.49 L Hgb 9.4 L Hct 30.0 L MCV MCH 27 L MCHC 31 L RDW 17.8 H Plt Count Lymph % (Auto) 7.9 L [place] % (Auto) 15.4 H Eos % (Auto) 6.3 H Lymph # 0.7 L [place] # 1.4 H Eos # 0.6 H Seg Neutrophils % 70.2 H Seg Neuts % (Manual) Lymphocytes % (Manual) Monocytes % (Manual) Eosinophils % (Manual) Nucleated RBC % Seg Neutrophils # Seg Neutrophils # Man Lymphocytes # (Manual) Monocytes # (Manual) Eosinophils # (Manual) PT INR APTT Fibrinogen POC ABG pH ABG pH 7.272 L POC ABG pCO2 POC ABG pO2 ABG pO2 75.7 L ABG HCO3 ABG O2 Saturation 93.8 L ABG Base Excess -3.0 L ABG Hemoglobin 7.8 L Oxyhemoglobin 91.6 L Sodium Potassium 5.2 H Chloride Carbon Dioxide BUN 96 H Creatinine 5.7 H Glucose 112 H POC Glucose Uric Acid Calcium Phosphorus Magnesium Iron TIBC AST ALT Total Creatine Kinase CK-MB (CK-2) Troponin T NT-Pro-B Natriuret Pep Total Protein Albumin Triglycerides 173 H HDL Cholesterol Folate Urine WBC (Auto) Urine Creatinine Urine Total Protein Vancomycin Trough 05/18/19 05/18/19 05/18/19 01:50 04:41 05:24 WBC RBC Hgb Hct MCV MCH MCHC RDW Plt Count Lymph % (Auto) [place] % (Auto) Eos % (Auto) Lymph # [place] # Eos # Seg Neutrophils % Seg Neuts % (Manual) Lymphocytes % (Manual) Monocytes % (Manual) Eosinophils % (Manual) Nucleated RBC % Seg Neutrophils # Seg Neutrophils # Man Lymphocytes # (Manual) Monocytes # (Manual) Eosinophils # (Manual) PT INR APTT Fibrinogen POC ABG pH 7.260 L ABG pH POC ABG pCO2 54.9 H POC ABG pO2 ABG pO2 ABG HCO3 ABG O2 Saturation ABG Base Excess ABG Hemoglobin Oxyhemoglobin Sodium Potassium 5.6 H Chloride Carbon Dioxide BUN 104 H Creatinine 6.6 H Glucose 107 H POC Glucose 106 H Uric Acid Calcium Phosphorus Magnesium Iron TIBC AST ALT Total Creatine Kinase CK-MB (CK-2) Troponin T NT-Pro-B Natriuret Pep Total Protein Albumin Triglycerides HDL Cholesterol Folate Urine WBC (Auto) Urine Creatinine Urine Total Protein Vancomycin Trough 05/18/19 05/18/19 05/19/19 11:34 23:26 04:06 WBC RBC 3.22 L Hgb 8.8 L Hct 27.3 L MCV MCH 27 L MCHC RDW 17.5 H Plt Count Lymph % (Auto) [place] % (Auto) Eos % (Auto) Lymph # [place] # Eos # Seg Neutrophils % Seg Neuts % (Manual) 74.0 H Lymphocytes % (Manual) 4.0 L Monocytes % (Manual) 11.0 H Eosinophils % (Manual) 7.0 H Nucleated RBC % 1.0 H Seg Neutrophils # Seg Neutrophils # Man Lymphocytes # (Manual) 0.3 L Monocytes # (Manual) 0.9 H Eosinophils # (Manual) 0.6 H PT INR APTT Fibrinogen POC ABG pH ABG pH POC ABG pCO2 POC ABG pO2 ABG pO2 ABG HCO3 ABG O2 Saturation ABG Base Excess ABG Hemoglobin Oxyhemoglobin Sodium Potassium Chloride Carbon Dioxide BUN Creatinine Glucose POC Glucose 152 H 112 H Uric Acid Calcium Phosphorus Magnesium Iron TIBC AST ALT Total Creatine Kinase CK-MB (CK-2) Troponin T NT-Pro-B Natriuret Pep Total Protein Albumin Triglycerides HDL Cholesterol Folate Urine WBC (Auto) Urine Creatinine Urine Total Protein Vancomycin Trough 05/19/19 05/19/19 05/20/19 04:06 06:00 04:00 WBC RBC 3.40 L Hgb 9.2 L Hct 28.6 L MCV MCH 27 L MCHC RDW 17.6 H Plt Count Lymph % (Auto) [place] % (Auto) Eos % (Auto) Lymph # [place] # Eos # Seg Neutrophils % Seg Neuts % (Manual) Lymphocytes % (Manual) 11.0 L Monocytes % (Manual) Eosinophils % (Manual) 14.0 H Nucleated RBC % Seg Neutrophils # Seg Neutrophils # Man Lymphocytes # (Manual) 1.1 L Monocytes # (Manual) Eosinophils # (Manual) 1.4 H PT INR APTT Fibrinogen POC ABG pH ABG pH 7.315 L POC ABG pCO2 POC ABG pO2 ABG pO2 ABG HCO3 ABG O2 Saturation ABG Base Excess ABG Hemoglobin 6.7 L Oxyhemoglobin 94.1 L Sodium Potassium 5.2 H Chloride Carbon Dioxide 21 L BUN 110 H Creatinine 7.2 H Glucose POC Glucose Uric Acid Calcium 8.3 L Phosphorus Magnesium Iron TIBC AST ALT Total Creatine Kinase CK-MB (CK-2) Troponin T NT-Pro-B Natriuret Pep Total Protein Albumin Triglycerides HDL Cholesterol Folate Urine WBC (Auto) Urine Creatinine Urine Total Protein Vancomycin Trough 05/20/19 05/20/19 05/20/19 04:00 05:48 12:00 WBC RBC Hgb Hct MCV MCH MCHC RDW Plt Count Lymph % (Auto) [place] % (Auto) Eos % (Auto) Lymph # [place] # Eos # Seg Neutrophils % Seg Neuts % (Manual) Lymphocytes % (Manual) Monocytes % (Manual) Eosinophils % (Manual) Nucleated RBC % Seg Neutrophils # Seg Neutrophils # Man Lymphocytes # (Manual) Monocytes # (Manual) Eosinophils # (Manual) PT INR APTT Fibrinogen POC ABG pH ABG pH 7.281 L POC ABG pCO2 POC ABG pO2 ABG pO2 78.7 L ABG HCO3 ABG O2 Saturation 94.5 L ABG Base Excess -3.0 L ABG Hemoglobin 9.9 L Oxyhemoglobin 92.5 L Sodium 136 L Potassium 5.7 H Chloride 96.3 L Carbon Dioxide BUN 125 H Creatinine 8.3 H Glucose 106 H POC Glucose Uric Acid Calcium Phosphorus Magnesium Iron TIBC AST ALT Total Creatine Kinase CK-MB (CK-2) Troponin T NT-Pro-B Natriuret Pep Total Protein Albumin Triglycerides HDL Cholesterol Folate Urine WBC (Auto) 26.0 H Urine Creatinine Urine Total Protein Vancomycin Trough 05/21/19 05/21/19 05/21/19 04:33 05:20 Unknown WBC RBC 3.38 L Hgb 9.1 L Hct 28.5 L MCV MCH 27 L MCHC RDW 17.4 H Plt Count Lymph % (Auto) [place] % (Auto) Eos % (Auto) Lymph # [place] # Eos # Seg Neutrophils % Seg Neuts % (Manual) 71.0 H Lymphocytes % (Manual) 1.0 L Monocytes % (Manual) 11.0 H Eosinophils % (Manual) 6.0 H Nucleated RBC % Seg Neutrophils # Seg Neutrophils # Man Lymphocytes # (Manual) 0.1 L Monocytes # (Manual) 1.0 H Eosinophils # (Manual) 0.6 H PT INR APTT Fibrinogen POC ABG pH 7.315 L ABG pH POC ABG pCO2 57.8 H POC ABG pO2 68 L ABG pO2 ABG HCO3 ABG O2 Saturation ABG Base Excess ABG Hemoglobin Oxyhemoglobin Sodium Potassium Chloride 96.3 L Carbon Dioxide BUN 102 H Creatinine 7.0 H Glucose 103 H POC Glucose Uric Acid Calcium Phosphorus Magnesium Iron TIBC AST ALT Total Creatine Kinase CK-MB (CK-2) Troponin T NT-Pro-B Natriuret Pep Total Protein Albumin Triglycerides HDL Cholesterol Folate Urine WBC (Auto) Urine Creatinine Urine Total Protein Vancomycin Trough 05/22/19 05/22/19 05/22/19 03:54 06:25 06:25 WBC RBC 3.22 L Hgb 8.6 L Hct 27.0 L MCV MCH 27 L MCHC RDW 17.5 H Plt Count Lymph % (Auto) [place] % (Auto) 16.2 H Eos % (Auto) 10.8 H Lymph # [place] # 1.3 H Eos # 0.9 H Seg Neutrophils % Seg Neuts % (Manual) Lymphocytes % (Manual) 10.0 L Monocytes % (Manual) 13.0 H Eosinophils % (Manual) 8.0 H Nucleated RBC % Seg Neutrophils # Seg Neutrophils # Man Lymphocytes # (Manual) 0.9 L Monocytes # (Manual) 1.1 H Eosinophils # (Manual) 0.7 H PT INR APTT Fibrinogen POC ABG pH 7.313 L ABG pH POC ABG pCO2 55.0 H POC ABG pO2 ABG pO2 ABG HCO3 ABG O2 Saturation ABG Base Excess ABG Hemoglobin Oxyhemoglobin Sodium 135 L Potassium Chloride 94.3 L Carbon Dioxide BUN 117 H Creatinine 7.8 H Glucose POC Glucose Uric Acid Calcium 8.2 L Phosphorus Magnesium Iron TIBC AST ALT Total Creatine Kinase CK-MB (CK-2) Troponin T NT-Pro-B Natriuret Pep Total Protein Albumin Triglycerides HDL Cholesterol Folate Urine WBC (Auto) Urine Creatinine Urine Total Protein Vancomycin Trough 05/23/19 05/24/19 05/24/19 05:21 05:00 05:00 WBC RBC 3.18 L Hgb 8.5 L Hct 26.7 L MCV MCH 27 L MCHC RDW 17.9 H Plt Count Lymph % (Auto) [place] % (Auto) Eos % (Auto) Lymph # [place] # Eos # Seg Neutrophils % Seg Neuts % (Manual) Lymphocytes % (Manual) Monocytes % (Manual) Eosinophils % (Manual) Nucleated RBC % Seg Neutrophils # Seg Neutrophils # Man Lymphocytes # (Manual) Monocytes # (Manual) Eosinophils # (Manual) PT INR APTT Fibrinogen POC ABG pH ABG pH POC ABG pCO2 49.7 H POC ABG pO2 73 L ABG pO2 ABG HCO3 ABG O2 Saturation ABG Base Excess ABG Hemoglobin Oxyhemoglobin Sodium Potassium Chloride 95.7 L Carbon Dioxide BUN 97 H Creatinine 6.5 H Glucose POC Glucose Uric Acid Calcium 8.0 L Phosphorus Magnesium Iron TIBC AST ALT Total Creatine Kinase CK-MB (CK-2) Troponin T NT-Pro-B Natriuret Pep Total Protein Albumin Triglycerides HDL Cholesterol Folate Urine WBC (Auto) Urine Creatinine Urine Total Protein Vancomycin Trough 05/24/19 05/25/19 05/25/19 06:17 04:22 15:45 WBC RBC 2.98 L Hgb 8.1 L Hct 24.9 L MCV MCH 27 L MCHC RDW 17.8 H Plt Count Lymph % (Auto) [place] % (Auto) Eos % (Auto) Lymph # [place] # Eos # Seg Neutrophils % Seg Neuts % (Manual) Lymphocytes % (Manual) Monocytes % (Manual) Eosinophils % (Manual) Nucleated RBC % Seg Neutrophils # Seg Neutrophils # Man Lymphocytes # (Manual) Monocytes # (Manual) Eosinophils # (Manual) PT INR APTT Fibrinogen POC ABG pH 7.330 L 7.313 L ABG pH POC ABG pCO2 52.5 H 51.1 H POC ABG pO2 77 L ABG pO2 ABG HCO3 ABG O2 Saturation ABG Base Excess ABG Hemoglobin Oxyhemoglobin Sodium Potassium Chloride Carbon Dioxide BUN Creatinine Glucose POC Glucose Uric Acid Calcium Phosphorus Magnesium Iron TIBC AST ALT Total Creatine Kinase CK-MB (CK-2) Troponin T NT-Pro-B Natriuret Pep Total Protein Albumin Triglycerides HDL Cholesterol Folate Urine WBC (Auto) Urine Creatinine Urine Total Protein Vancomycin Trough 05/25/19 05/26/19 05/26/19 15:45 04:13 05:00 WBC RBC 3.10 L Hgb 8.4 L Hct 26.0 L MCV MCH 27 L MCHC RDW 17.4 H Plt Count Lymph % (Auto) [place] % (Auto) Eos % (Auto) Lymph # [place] # Eos # Seg Neutrophils % Seg Neuts % (Manual) Lymphocytes % (Manual) Monocytes % (Manual) Eosinophils % (Manual) Nucleated RBC % Seg Neutrophils # Seg Neutrophils # Man Lymphocytes # (Manual) Monocytes # (Manual) Eosinophils # (Manual) PT INR APTT Fibrinogen POC ABG pH 7.295 L ABG pH POC ABG pCO2 56.5 H POC ABG pO2 63 L ABG pO2 ABG HCO3 ABG O2 Saturation ABG Base Excess ABG Hemoglobin Oxyhemoglobin Sodium 136 L Potassium Chloride 96.8 L Carbon Dioxide BUN 83 H Creatinine 5.9 H Glucose POC Glucose Uric Acid Calcium 7.6 L Phosphorus Magnesium Iron TIBC AST ALT Total Creatine Kinase CK-MB (CK-2) Troponin T NT-Pro-B Natriuret Pep Total Protein Albumin Triglycerides HDL Cholesterol Folate Urine WBC (Auto) Urine Creatinine Urine Total Protein Vancomycin Trough 05/26/19 05/27/19 05/28/19 05:00 04:48 04:47 WBC RBC Hgb Hct MCV MCH MCHC RDW Plt Count Lymph % (Auto) [place] % (Auto) Eos % (Auto) Lymph # [place] # Eos # Seg Neutrophils % Seg Neuts % (Manual) Lymphocytes % (Manual) Monocytes % (Manual) Eosinophils % (Manual) Nucleated RBC % Seg Neutrophils # Seg Neutrophils # Man Lymphocytes # (Manual) Monocytes # (Manual) Eosinophils # (Manual) PT INR APTT Fibrinogen POC ABG pH 7.323 L ABG pH 7.284 L POC ABG pCO2 56.2 H POC ABG pO2 ABG pO2 71.6 L ABG HCO3 ABG O2 Saturation 92.0 L ABG Base Excess ABG Hemoglobin 7.7 L Oxyhemoglobin 89.9 L Sodium 136 L Potassium Chloride 95.3 L Carbon Dioxide BUN 96 H Creatinine 6.5 H Glucose 108 H POC Glucose Uric Acid Calcium 7.6 L Phosphorus Magnesium Iron TIBC AST ALT Total Creatine Kinase CK-MB (CK-2) Troponin T NT-Pro-B Natriuret Pep Total Protein Albumin Triglycerides HDL Cholesterol Folate Urine WBC (Auto) Urine Creatinine Urine Total Protein Vancomycin Trough 05/28/19 05/29/19 05/29/19 12:30 12:47 23:44 WBC RBC Hgb Hct MCV MCH MCHC RDW Plt Count Lymph % (Auto) [place] % (Auto) Eos % (Auto) Lymph # [place] # Eos # Seg Neutrophils % Seg Neuts % (Manual) Lymphocytes % (Manual) Monocytes % (Manual) Eosinophils % (Manual) Nucleated RBC % Seg Neutrophils # Seg Neutrophils # Man Lymphocytes # (Manual) Monocytes # (Manual) Eosinophils # (Manual) PT INR APTT Fibrinogen POC ABG pH ABG pH POC ABG pCO2 POC ABG pO2 ABG pO2 ABG HCO3 ABG O2 Saturation ABG Base Excess ABG Hemoglobin Oxyhemoglobin Sodium 135 L Potassium Chloride 95.3 L Carbon Dioxide BUN 82 H Creatinine 6.0 H Glucose POC Glucose 136 H 159 H Uric Acid Calcium 7.5 L Phosphorus Magnesium Iron TIBC AST ALT Total Creatine Kinase CK-MB (CK-2) Troponin T NT-Pro-B Natriuret Pep Total Protein Albumin Triglycerides HDL Cholesterol Folate Urine WBC (Auto) Urine Creatinine Urine Total Protein Vancomycin Trough 05/30/19 05/30/19 05/30/19 04:30 05:38 12:00 WBC RBC 3.01 L Hgb 8.2 L Hct 25.3 L MCV MCH 27 L MCHC RDW 17.5 H Plt Count Lymph % (Auto) [place] % (Auto) Eos % (Auto) Lymph # [place] # Eos # Seg Neutrophils % Seg Neuts % (Manual) 80.0 H Lymphocytes % (Manual) 10.0 L Monocytes % (Manual) Eosinophils % (Manual) Nucleated RBC % Seg Neutrophils # Seg Neutrophils # Man 8.0 H Lymphocytes # (Manual) 1.0 L Monocytes # (Manual) Eosinophils # (Manual) PT INR APTT Fibrinogen POC ABG pH ABG pH POC ABG pCO2 POC ABG pO2 73 L ABG pO2 ABG HCO3 ABG O2 Saturation ABG Base Excess ABG Hemoglobin Oxyhemoglobin Sodium Potassium Chloride Carbon Dioxide BUN Creatinine Glucose POC Glucose 166 H Uric Acid Calcium Phosphorus Magnesium Iron TIBC AST ALT Total Creatine Kinase CK-MB (CK-2) Troponin T NT-Pro-B Natriuret Pep Total Protein Albumin Triglycerides HDL Cholesterol Folate Urine WBC (Auto) Urine Creatinine Urine Total Protein Vancomycin Trough 05/30/19 05/31/19 05/31/19 23:45 04:07 13:04 WBC 14.3 H RBC 2.88 L Hgb 7.7 L Hct 23.9 L MCV 83 L MCH 27 L MCHC RDW 17.8 H Plt Count Lymph % (Auto) [place] % (Auto) Eos % (Auto) Lymph # [place] # Eos # Seg Neutrophils % Seg Neuts % (Manual) 83.0 H Lymphocytes % (Manual) 11.0 L Monocytes % (Manual) Eosinophils % (Manual) Nucleated RBC % Seg Neutrophils # Seg Neutrophils # Man 11.9 H Lymphocytes # (Manual) Monocytes # (Manual) 0.9 H Eosinophils # (Manual) PT INR APTT Fibrinogen POC ABG pH ABG pH POC ABG pCO2 47.4 H POC ABG pO2 ABG pO2 ABG HCO3 ABG O2 Saturation ABG Base Excess ABG Hemoglobin Oxyhemoglobin Sodium Potassium Chloride Carbon Dioxide BUN Creatinine Glucose POC Glucose 209 H Uric Acid Calcium Phosphorus Magnesium Iron TIBC AST ALT Total Creatine Kinase CK-MB (CK-2) Troponin T NT-Pro-B Natriuret Pep Total Protein Albumin Triglycerides HDL Cholesterol Folate Urine WBC (Auto) Urine Creatinine Urine Total Protein Vancomycin Trough 05/31/19 05/31/19 06/01/19 13:04 16:42 00:15 WBC RBC Hgb Hct MCV MCH MCHC RDW Plt Count Lymph % (Auto) [place] % (Auto) Eos % (Auto) Lymph # [place] # Eos # Seg Neutrophils % Seg Neuts % (Manual) Lymphocytes % (Manual) Monocytes % (Manual) Eosinophils % (Manual) Nucleated RBC % Seg Neutrophils # Seg Neutrophils # Man Lymphocytes # (Manual) Monocytes # (Manual) Eosinophils # (Manual) PT INR APTT Fibrinogen POC ABG pH ABG pH POC ABG pCO2 POC ABG pO2 ABG pO2 ABG HCO3 ABG O2 Saturation ABG Base Excess ABG Hemoglobin Oxyhemoglobin Sodium 129 L Potassium Chloride 88.6 L Carbon Dioxide 19 L BUN 117 H Creatinine 6.7 H Glucose 205 H POC Glucose 228 H 223 H Uric Acid Calcium 7.4 L Phosphorus 7.40 H Magnesium Iron TIBC AST 58 H ALT 149 H Total Creatine Kinase CK-MB (CK-2) Troponin T NT-Pro-B Natriuret Pep Total Protein 6.0 L Albumin 2.5 L Triglycerides HDL Cholesterol Folate Urine WBC (Auto) Urine Creatinine Urine Total Protein Vancomycin Trough 06/01/19 06/01/19 06/01/19 04:33 05:27 12:31 WBC RBC Hgb Hct MCV MCH MCHC RDW Plt Count Lymph % (Auto) [place] % (Auto) Eos % (Auto) Lymph # [place] # Eos # Seg Neutrophils % Seg Neuts % (Manual) Lymphocytes % (Manual) Monocytes % (Manual) Eosinophils % (Manual) Nucleated RBC % Seg Neutrophils # Seg Neutrophils # Man Lymphocytes # (Manual) Monocytes # (Manual) Eosinophils # (Manual) PT INR APTT Fibrinogen POC ABG pH ABG pH POC ABG pCO2 POC ABG pO2 ABG pO2 56.9 L ABG HCO3 ABG O2 Saturation 85.9 L ABG Base Excess ABG Hemoglobin 8.1 L Oxyhemoglobin 83.6 L Sodium Potassium Chloride Carbon Dioxide BUN Creatinine Glucose POC Glucose 183 H 217 H Uric Acid Calcium Phosphorus Magnesium Iron TIBC AST ALT Total Creatine Kinase CK-MB (CK-2) Troponin T NT-Pro-B Natriuret Pep Total Protein Albumin Triglycerides HDL Cholesterol Folate Urine WBC (Auto) Urine Creatinine Urine Total Protein Vancomycin Trough 06/01/19 06/02/19 06/02/19 18:20 00:00 05:33 WBC RBC Hgb Hct MCV MCH MCHC RDW Plt Count Lymph % (Auto) [place] % (Auto) Eos % (Auto) Lymph # [place] # Eos # Seg Neutrophils % Seg Neuts % (Manual) Lymphocytes % (Manual) Monocytes % (Manual) Eosinophils % (Manual) Nucleated RBC % Seg Neutrophils # Seg Neutrophils # Man Lymphocytes # (Manual) Monocytes # (Manual) Eosinophils # (Manual) PT INR APTT Fibrinogen POC ABG pH ABG pH POC ABG pCO2 POC ABG pO2 ABG pO2 ABG HCO3 ABG O2 Saturation ABG Base Excess ABG Hemoglobin Oxyhemoglobin Sodium Potassium Chloride Carbon Dioxide BUN Creatinine Glucose POC Glucose 265 H 279 H 259 H Uric Acid Calcium Phosphorus Magnesium Iron TIBC AST ALT Total Creatine Kinase CK-MB (CK-2) Troponin T NT-Pro-B Natriuret Pep Total Protein Albumin Triglycerides HDL Cholesterol Folate Urine WBC (Auto) Urine Creatinine Urine Total Protein Vancomycin Trough 06/02/19 06/02/19 06/02/19 11:06 11:06 11:42 WBC 13.1 H RBC 2.92 L Hgb 7.9 L Hct 24.4 L MCV MCH 27 L MCHC RDW 17.4 H Plt Count Lymph % (Auto) [place] % (Auto) Eos % (Auto) Lymph # [place] # Eos # Seg Neutrophils % Seg Neuts % (Manual) 78.0 H Lymphocytes % (Manual) 12.0 L Monocytes % (Manual) 10.0 H Eosinophils % (Manual) Nucleated RBC % Seg Neutrophils # Seg Neutrophils # Man 10.2 H Lymphocytes # (Manual) Monocytes # (Manual) 1.3 H Eosinophils # (Manual) PT INR APTT Fibrinogen POC ABG pH ABG pH POC ABG pCO2 POC ABG pO2 ABG pO2 ABG HCO3 ABG O2 Saturation ABG Base Excess ABG Hemoglobin Oxyhemoglobin Sodium 135 L Potassium Chloride 94.7 L Carbon Dioxide 21 L BUN 107 H Creatinine 4.5 H Glucose 286 H POC Glucose 263 H Uric Acid Calcium 7.9 L Phosphorus 6.30 H Magnesium Iron TIBC AST ALT 104 H Total Creatine Kinase CK-MB (CK-2) Troponin T NT-Pro-B Natriuret Pep Total Protein 6.0 L Albumin 2.7 L Triglycerides HDL Cholesterol Folate Urine WBC (Auto) Urine Creatinine Urine Total Protein Vancomycin Trough 06/02/19 06/02/19 06/03/19 18:17 23:55 05:30 WBC RBC Hgb Hct MCV MCH MCHC RDW Plt Count Lymph % (Auto) [place] % (Auto) Eos % (Auto) Lymph # [place] # Eos # Seg Neutrophils % Seg Neuts % (Manual) Lymphocytes % (Manual) Monocytes % (Manual) Eosinophils % (Manual) Nucleated RBC % Seg Neutrophils # Seg Neutrophils # Man Lymphocytes # (Manual) Monocytes # (Manual) Eosinophils # (Manual) PT INR APTT Fibrinogen POC ABG pH ABG pH POC ABG pCO2 POC ABG pO2 ABG pO2 ABG HCO3 ABG O2 Saturation ABG Base Excess ABG Hemoglobin Oxyhemoglobin Sodium Potassium Chloride 95.1 L Carbon Dioxide 21 L BUN 119 H Creatinine 4.1 H Glucose 330 H POC Glucose 276 H 244 H Uric Acid Calcium 8.1 L Phosphorus Magnesium Iron TIBC AST ALT 98 H Total Creatine Kinase CK-MB (CK-2) Troponin T NT-Pro-B Natriuret Pep Total Protein 5.8 L Albumin 2.8 L Triglycerides HDL Cholesterol Folate Urine WBC (Auto) Urine Creatinine Urine Total Protein Vancomycin Trough 06/03/19 06/03/19 06/03/19 05:30 06:04 09:42 WBC 12.8 H RBC 3.01 L Hgb 8.2 L Hct 25.4 L MCV MCH 27 L MCHC RDW 17.5 H Plt Count Lymph % (Auto) [place] % (Auto) Eos % (Auto) Lymph # [place] # Eos # Seg Neutrophils % Seg Neuts % (Manual) 78.0 H Lymphocytes % (Manual) 10.0 L Monocytes % (Manual) 12.0 H Eosinophils % (Manual) Nucleated RBC % Seg Neutrophils # Seg Neutrophils # Man 10.0 H Lymphocytes # (Manual) Monocytes # (Manual) 1.5 H Eosinophils # (Manual) PT INR APTT Fibrinogen POC ABG pH ABG pH POC ABG pCO2 POC ABG pO2 ABG pO2 ABG HCO3 ABG O2 Saturation ABG Base Excess ABG Hemoglobin Oxyhemoglobin Sodium Potassium Chloride Carbon Dioxide BUN 106 H Creatinine Glucose POC Glucose 254 H Uric Acid Calcium Phosphorus Magnesium Iron TIBC AST ALT Total Creatine Kinase CK-MB (CK-2) Troponin T NT-Pro-B Natriuret Pep Total Protein Albumin Triglycerides HDL Cholesterol Folate Urine WBC (Auto) Urine Creatinine Urine Total Protein Vancomycin Trough 06/03/19 06/03/19 06/03/19 12:52 17:25 23:37 WBC RBC Hgb Hct MCV MCH MCHC RDW Plt Count Lymph % (Auto) [place] % (Auto) Eos % (Auto) Lymph # [place] # Eos # Seg Neutrophils % Seg Neuts % (Manual) Lymphocytes % (Manual) Monocytes % (Manual) Eosinophils % (Manual) Nucleated RBC % Seg Neutrophils # Seg Neutrophils # Man Lymphocytes # (Manual) Monocytes # (Manual) Eosinophils # (Manual) PT INR APTT Fibrinogen POC ABG pH ABG pH POC ABG pCO2 POC ABG pO2 ABG pO2 ABG HCO3 ABG O2 Saturation ABG Base Excess ABG Hemoglobin Oxyhemoglobin Sodium Potassium Chloride Carbon Dioxide BUN Creatinine Glucose POC Glucose 274 H 285 H 310 H Uric Acid Calcium Phosphorus Magnesium Iron TIBC AST ALT Total Creatine Kinase CK-MB (CK-2) Troponin T NT-Pro-B Natriuret Pep Total Protein Albumin Triglycerides HDL Cholesterol Folate Urine WBC (Auto) Urine Creatinine Urine Total Protein Vancomycin Trough 06/04/19 06/04/19 06/04/19 04:57 05:03 11:50 WBC RBC Hgb Hct MCV MCH MCHC RDW Plt Count Lymph % (Auto) [place] % (Auto) Eos % (Auto) Lymph # [place] # Eos # Seg Neutrophils % Seg Neuts % (Manual) Lymphocytes % (Manual) Monocytes % (Manual) Eosinophils % (Manual) Nucleated RBC % Seg Neutrophils # Seg Neutrophils # Man Lymphocytes # (Manual) Monocytes # (Manual) Eosinophils # (Manual) PT INR APTT Fibrinogen POC ABG pH 7.488 H ABG pH POC ABG pCO2 POC ABG pO2 ABG pO2 ABG HCO3 ABG O2 Saturation ABG Base Excess ABG Hemoglobin Oxyhemoglobin Sodium Potassium Chloride Carbon Dioxide BUN Creatinine Glucose POC Glucose 275 H 279 H Uric Acid Calcium Phosphorus Magnesium Iron TIBC AST ALT Total Creatine Kinase CK-MB (CK-2) Troponin T NT-Pro-B Natriuret Pep Total Protein Albumin Triglycerides HDL Cholesterol Folate Urine WBC (Auto) Urine Creatinine Urine Total Protein Vancomycin Trough 06/04/19 06/04/19 06/04/19 18:32 22:03 23:55 WBC RBC Hgb Hct MCV MCH MCHC RDW Plt Count Lymph % (Auto) [place] % (Auto) Eos % (Auto) Lymph # [place] # Eos # Seg Neutrophils % Seg Neuts % (Manual) Lymphocytes % (Manual) Monocytes % (Manual) Eosinophils % (Manual) Nucleated RBC % Seg Neutrophils # Seg Neutrophils # Man Lymphocytes # (Manual) Monocytes # (Manual) Eosinophils # (Manual) PT INR APTT Fibrinogen POC ABG pH ABG pH POC ABG pCO2 POC ABG pO2 ABG pO2 ABG HCO3 ABG O2 Saturation ABG Base Excess ABG Hemoglobin Oxyhemoglobin Sodium Potassium Chloride Carbon Dioxide BUN Creatinine Glucose POC Glucose 267 H 307 H 292 H Uric Acid Calcium Phosphorus Magnesium Iron TIBC AST ALT Total Creatine Kinase CK-MB (CK-2) Troponin T NT-Pro-B Natriuret Pep Total Protein Albumin Triglycerides HDL Cholesterol Folate Urine WBC (Auto) Urine Creatinine Urine Total Protein Vancomycin Trough 06/05/19 06/05/19 06/05/19 03:52 06:41 12:29 WBC RBC Hgb Hct MCV MCH MCHC RDW Plt Count Lymph % (Auto) [place] % (Auto) Eos % (Auto) Lymph # [place] # Eos # Seg Neutrophils % Seg Neuts % (Manual) Lymphocytes % (Manual) Monocytes % (Manual) Eosinophils % (Manual) Nucleated RBC % Seg Neutrophils # Seg Neutrophils # Man Lymphocytes # (Manual) Monocytes # (Manual) Eosinophils # (Manual) PT INR APTT Fibrinogen POC ABG pH 7.462 H ABG pH POC ABG pCO2 POC ABG pO2 ABG pO2 ABG HCO3 ABG O2 Saturation ABG Base Excess ABG Hemoglobin Oxyhemoglobin Sodium Potassium Chloride Carbon Dioxide BUN Creatinine Glucose POC Glucose 369 H 265 H Uric Acid Calcium Phosphorus Magnesium Iron TIBC AST ALT Total Creatine Kinase CK-MB (CK-2) Troponin T NT-Pro-B Natriuret Pep Total Protein Albumin Triglycerides HDL Cholesterol Folate Urine WBC (Auto) Urine Creatinine Urine Total Protein Vancomycin Trough 06/05/19 06/05/19 06/05/19 18:20 21:42 23:21 WBC RBC Hgb Hct MCV MCH MCHC RDW Plt Count Lymph % (Auto) [place] % (Auto) Eos % (Auto) Lymph # [place] # Eos # Seg Neutrophils % Seg Neuts % (Manual) Lymphocytes % (Manual) Monocytes % (Manual) Eosinophils % (Manual) Nucleated RBC % Seg Neutrophils # Seg Neutrophils # Man Lymphocytes # (Manual) Monocytes # (Manual) Eosinophils # (Manual) PT INR APTT Fibrinogen POC ABG pH ABG pH POC ABG pCO2 POC ABG pO2 ABG pO2 ABG HCO3 ABG O2 Saturation ABG Base Excess ABG Hemoglobin Oxyhemoglobin Sodium Potassium Chloride Carbon Dioxide BUN Creatinine Glucose POC Glucose 249 H 246 H 274 H Uric Acid Calcium Phosphorus Magnesium Iron TIBC AST ALT Total Creatine Kinase CK-MB (CK-2) Troponin T NT-Pro-B Natriuret Pep Total Protein Albumin Triglycerides HDL Cholesterol Folate Urine WBC (Auto) Urine Creatinine Urine Total Protein Vancomycin Trough 06/06/19 06/06/19 06/06/19 04:00 05:49 11:34 WBC 18.1 H RBC 3.53 L Hgb 9.5 L Hct 30.3 L MCV MCH 27 L MCHC 31 L RDW 19.5 H Plt Count Lymph % (Auto) [place] % (Auto) Eos % (Auto) Lymph # [place] # Eos # Seg Neutrophils % Seg Neuts % (Manual) 87.0 H Lymphocytes % (Manual) 3.0 L Monocytes % (Manual) 8.0 H Eosinophils % (Manual) Nucleated RBC % Seg Neutrophils # Seg Neutrophils # Man 15.7 H Lymphocytes # (Manual) 0.5 L Monocytes # (Manual) 1.4 H Eosinophils # (Manual) PT INR APTT Fibrinogen POC ABG pH ABG pH 7.472 H POC ABG pCO2 POC ABG pO2 ABG pO2 76.4 L ABG HCO3 28.1 H ABG O2 Saturation ABG Base Excess 4.3 H ABG Hemoglobin 12.5 L Oxyhemoglobin 93.8 L Sodium Potassium Chloride Carbon Dioxide BUN Creatinine Glucose POC Glucose 340 H Uric Acid Calcium Phosphorus Magnesium Iron TIBC AST ALT Total Creatine Kinase CK-MB (CK-2) Troponin T NT-Pro-B Natriuret Pep Total Protein Albumin Triglycerides HDL Cholesterol Folate Urine WBC (Auto) Urine Creatinine Urine Total Protein Vancomycin Trough 06/06/19 06/06/19 06/06/19 11:34 12:11 18:10 WBC RBC Hgb Hct MCV MCH MCHC RDW Plt Count Lymph % (Auto) [place] % (Auto) Eos % (Auto) Lymph # [place] # Eos # Seg Neutrophils % Seg Neuts % (Manual) Lymphocytes % (Manual) Monocytes % (Manual) Eosinophils % (Manual) Nucleated RBC % Seg Neutrophils # Seg Neutrophils # Man Lymphocytes # (Manual) Monocytes # (Manual) Eosinophils # (Manual) PT INR APTT Fibrinogen POC ABG pH ABG pH POC ABG pCO2 POC ABG pO2 ABG pO2 ABG HCO3 ABG O2 Saturation ABG Base Excess ABG Hemoglobin Oxyhemoglobin Sodium Potassium Chloride Carbon Dioxide BUN 70 H Creatinine Glucose 310 H POC Glucose 283 H 301 H Uric Acid Calcium 8.3 L Phosphorus 4.60 H Magnesium Iron TIBC AST ALT 75 H Total Creatine Kinase CK-MB (CK-2) Troponin T NT-Pro-B Natriuret Pep Total Protein 5.6 L Albumin 2.9 L Triglycerides HDL Cholesterol Folate Urine WBC (Auto) Urine Creatinine Urine Total Protein Vancomycin Trough 06/06/19 06/06/19 06/07/19 22:21 23:16 04:30 WBC RBC Hgb Hct MCV MCH MCHC RDW Plt Count Lymph % (Auto) [place] % (Auto) Eos % (Auto) Lymph # [place] # Eos # Seg Neutrophils % Seg Neuts % (Manual) Lymphocytes % (Manual) Monocytes % (Manual) Eosinophils % (Manual) Nucleated RBC % Seg Neutrophils # Seg Neutrophils # Man Lymphocytes # (Manual) Monocytes # (Manual) Eosinophils # (Manual) PT INR APTT Fibrinogen POC ABG pH ABG pH 7.480 H POC ABG pCO2 POC ABG pO2 ABG pO2 77.0 L ABG HCO3 27.2 H ABG O2 Saturation ABG Base Excess 3.5 H ABG Hemoglobin 7.1 L Oxyhemoglobin 94.2 L Sodium Potassium Chloride Carbon Dioxide BUN Creatinine Glucose POC Glucose 289 H 343 H Uric Acid Calcium Phosphorus Magnesium Iron TIBC AST ALT Total Creatine Kinase CK-MB (CK-2) Troponin T NT-Pro-B Natriuret Pep Total Protein Albumin Triglycerides HDL Cholesterol Folate Urine WBC (Auto) Urine Creatinine Urine Total Protein Vancomycin Trough 06/07/19 06/07/19 06/07/19 05:15 12:52 18:41 WBC RBC Hgb Hct MCV MCH MCHC RDW Plt Count Lymph % (Auto) [place] % (Auto) Eos % (Auto) Lymph # [place] # Eos # Seg Neutrophils % Seg Neuts % (Manual) Lymphocytes % (Manual) Monocytes % (Manual) Eosinophils % (Manual) Nucleated RBC % Seg Neutrophils # Seg Neutrophils # Man Lymphocytes # (Manual) Monocytes # (Manual) Eosinophils # (Manual) PT INR APTT Fibrinogen POC ABG pH ABG pH POC ABG pCO2 POC ABG pO2 ABG pO2 ABG HCO3 ABG O2 Saturation ABG Base Excess ABG Hemoglobin Oxyhemoglobin Sodium Potassium Chloride Carbon Dioxide BUN Creatinine Glucose POC Glucose 307 H 226 H 187 H Uric Acid Calcium Phosphorus Magnesium Iron TIBC AST ALT Total Creatine Kinase CK-MB (CK-2) Troponin T NT-Pro-B Natriuret Pep Total Protein Albumin Triglycerides HDL Cholesterol Folate Urine WBC (Auto) Urine Creatinine Urine Total Protein Vancomycin Trough 06/07/19 06/07/19 06/08/19 22:54 23:46 04:20 WBC 16.0 H RBC Hgb 10.0 L Hct 32.1 L MCV MCH 27 L MCHC 31 L RDW 19.4 H Plt Count Lymph % (Auto) [place] % (Auto) Eos % (Auto) Lymph # [place] # Eos # Seg Neutrophils % Seg Neuts % (Manual) 87.0 H Lymphocytes % (Manual) 7.0 L Monocytes % (Manual) Eosinophils % (Manual) Nucleated RBC % Seg Neutrophils # Seg Neutrophils # Man 13.9 H Lymphocytes # (Manual) 1.1 L Monocytes # (Manual) 1.0 H Eosinophils # (Manual) PT INR APTT Fibrinogen POC ABG pH ABG pH POC ABG pCO2 POC ABG pO2 ABG pO2 ABG HCO3 ABG O2 Saturation ABG Base Excess ABG Hemoglobin Oxyhemoglobin Sodium Potassium Chloride Carbon Dioxide BUN Creatinine Glucose POC Glucose 199 H 172 H Uric Acid Calcium Phosphorus Magnesium Iron TIBC AST ALT Total Creatine Kinase CK-MB (CK-2) Troponin T NT-Pro-B Natriuret Pep Total Protein Albumin Triglycerides HDL Cholesterol Folate Urine WBC (Auto) Urine Creatinine Urine Total Protein Vancomycin Trough 06/08/19 06/08/19 06/08/19 04:20 05:15 11:31 WBC RBC Hgb Hct MCV MCH MCHC RDW Plt Count Lymph % (Auto) [place] % (Auto) Eos % (Auto) Lymph # [place] # Eos # Seg Neutrophils % Seg Neuts % (Manual) Lymphocytes % (Manual) Monocytes % (Manual) Eosinophils % (Manual) Nucleated RBC % Seg Neutrophils # Seg Neutrophils # Man Lymphocytes # (Manual) Monocytes # (Manual) Eosinophils # (Manual) PT INR APTT Fibrinogen POC ABG pH ABG pH POC ABG pCO2 POC ABG pO2 ABG pO2 ABG HCO3 ABG O2 Saturation ABG Base Excess ABG Hemoglobin Oxyhemoglobin Sodium 146 H D Potassium Chloride Carbon Dioxide BUN 77 H Creatinine Glucose 205 H POC Glucose 209 H 181 H Uric Acid Calcium Phosphorus Magnesium Iron TIBC AST ALT 66 H Total Creatine Kinase CK-MB (CK-2) Troponin T NT-Pro-B Natriuret Pep Total Protein 5.5 L Albumin 2.9 L Triglycerides HDL Cholesterol Folate Urine WBC (Auto) Urine Creatinine Urine Total Protein Vancomycin Trough 06/08/19 06/08/19 06/09/19 17:28 23:24 05:20 WBC RBC Hgb Hct MCV MCH MCHC RDW Plt Count Lymph % (Auto) [place] % (Auto) Eos % (Auto) Lymph # [place] # Eos # Seg Neutrophils % Seg Neuts % (Manual) Lymphocytes % (Manual) Monocytes % (Manual) Eosinophils % (Manual) Nucleated RBC % Seg Neutrophils # Seg Neutrophils # Man Lymphocytes # (Manual) Monocytes # (Manual) Eosinophils # (Manual) PT INR APTT Fibrinogen POC ABG pH ABG pH POC ABG pCO2 POC ABG pO2 ABG pO2 ABG HCO3 ABG O2 Saturation ABG Base Excess ABG Hemoglobin Oxyhemoglobin Sodium Potassium Chloride Carbon Dioxide BUN Creatinine Glucose POC Glucose 215 H 200 H 173 H Uric Acid Calcium Phosphorus Magnesium Iron TIBC AST ALT Total Creatine Kinase CK-MB (CK-2) Troponin T NT-Pro-B Natriuret Pep Total Protein Albumin Triglycerides HDL Cholesterol Folate Urine WBC (Auto) Urine Creatinine Urine Total Protein Vancomycin Trough 06/09/19 06/09/19 06/09/19 12:07 18:32 23:51 WBC RBC Hgb Hct MCV MCH MCHC RDW Plt Count Lymph % (Auto) [place] % (Auto) Eos % (Auto) Lymph # [place] # Eos # Seg Neutrophils % Seg Neuts % (Manual) Lymphocytes % (Manual) Monocytes % (Manual) Eosinophils % (Manual) Nucleated RBC % Seg Neutrophils # Seg Neutrophils # Man Lymphocytes # (Manual) Monocytes # (Manual) Eosinophils # (Manual) PT INR APTT Fibrinogen POC ABG pH ABG pH POC ABG pCO2 POC ABG pO2 ABG pO2 ABG HCO3 ABG O2 Saturation ABG Base Excess ABG Hemoglobin Oxyhemoglobin Sodium Potassium Chloride Carbon Dioxide BUN Creatinine Glucose POC Glucose 117 H 169 H 147 H Uric Acid Calcium Phosphorus Magnesium Iron TIBC AST ALT Total Creatine Kinase CK-MB (CK-2) Troponin T NT-Pro-B Natriuret Pep Total Protein Albumin Triglycerides HDL Cholesterol Folate Urine WBC (Auto) Urine Creatinine Urine Total Protein Vancomycin Trough 06/10/19 06/10/19 06/10/19 05:45 05:45 06:01 WBC 14.6 H RBC Hgb 9.9 L Hct 32.2 L MCV MCH 27 L MCHC 31 L RDW 19.6 H Plt Count Lymph % (Auto) 10.5 L [place] % (Auto) 9.4 H Eos % (Auto) Lymph # [place] # 1.4 H Eos # Seg Neutrophils % 79.9 H Seg Neuts % (Manual) Lymphocytes % (Manual) Monocytes % (Manual) Eosinophils % (Manual) Nucleated RBC % Seg Neutrophils # 11.7 H Seg Neutrophils # Man Lymphocytes # (Manual) Monocytes # (Manual) Eosinophils # (Manual) PT INR APTT Fibrinogen POC ABG pH ABG pH POC ABG pCO2 POC ABG pO2 ABG pO2 ABG HCO3 ABG O2 Saturation ABG Base Excess ABG Hemoglobin Oxyhemoglobin Sodium 150 H Potassium Chloride 108.3 H Carbon Dioxide BUN 49 H Creatinine Glucose 172 H POC Glucose 165 H Uric Acid Calcium Phosphorus Magnesium 1.40 L Iron TIBC AST ALT Total Creatine Kinase CK-MB (CK-2) Troponin T NT-Pro-B Natriuret Pep Total Protein Albumin Triglycerides HDL Cholesterol Folate Urine WBC (Auto) Urine Creatinine Urine Total Protein Vancomycin Trough 06/10/19 06/10/19 06/11/19 12:11 18:30 00:02 WBC RBC Hgb Hct MCV MCH MCHC RDW Plt Count Lymph % (Auto) [place] % (Auto) Eos % (Auto) Lymph # [place] # Eos # Seg Neutrophils % Seg Neuts % (Manual) Lymphocytes % (Manual) Monocytes % (Manual) Eosinophils % (Manual) Nucleated RBC % Seg Neutrophils # Seg Neutrophils # Man Lymphocytes # (Manual) Monocytes # (Manual) Eosinophils # (Manual) PT INR APTT Fibrinogen POC ABG pH ABG pH POC ABG pCO2 POC ABG pO2 ABG pO2 ABG HCO3 ABG O2 Saturation ABG Base Excess ABG Hemoglobin Oxyhemoglobin Sodium Potassium Chloride Carbon Dioxide BUN Creatinine Glucose POC Glucose 150 H 154 H 130 H Uric Acid Calcium Phosphorus Magnesium Iron TIBC AST ALT Total Creatine Kinase CK-MB (CK-2) Troponin T NT-Pro-B Natriuret Pep Total Protein Albumin Triglycerides HDL Cholesterol Folate Urine WBC (Auto) Urine Creatinine Urine Total Protein Vancomycin Trough 06/11/19 06/11/19 06/11/19 05:33 08:34 12:33 WBC RBC Hgb Hct MCV MCH MCHC RDW Plt Count Lymph % (Auto) [place] % (Auto) Eos % (Auto) Lymph # [place] # Eos # Seg Neutrophils % Seg Neuts % (Manual) Lymphocytes % (Manual) Monocytes % (Manual) Eosinophils % (Manual) Nucleated RBC % Seg Neutrophils # Seg Neutrophils # Man Lymphocytes # (Manual) Monocytes # (Manual) Eosinophils # (Manual) PT INR APTT Fibrinogen POC ABG pH ABG pH POC ABG pCO2 POC ABG pO2 ABG pO2 ABG HCO3 ABG O2 Saturation ABG Base Excess ABG Hemoglobin Oxyhemoglobin Sodium 154 H Potassium Chloride 111.6 H Carbon Dioxide BUN 41 H Creatinine Glucose 147 H POC Glucose 183 H 185 H Uric Acid Calcium Phosphorus Magnesium Iron TIBC AST ALT Total Creatine Kinase CK-MB (CK-2) Troponin T NT-Pro-B Natriuret Pep Total Protein Albumin Triglycerides HDL Cholesterol Folate Urine WBC (Auto) Urine Creatinine Urine Total Protein Vancomycin Trough 06/11/19 06/11/19 06/12/19 18:22 23:46 03:21 WBC 11.9 H RBC 3.61 L Hgb 9.9 L Hct 31.7 L MCV MCH 27 L MCHC 31 L RDW 19.3 H Plt Count Lymph % (Auto) 10.6 L [place] % (Auto) 8.6 H Eos % (Auto) Lymph # [place] # 1.0 H Eos # Seg Neutrophils % 80.6 H Seg Neuts % (Manual) Lymphocytes % (Manual) Monocytes % (Manual) Eosinophils % (Manual) Nucleated RBC % Seg Neutrophils # 9.6 H Seg Neutrophils # Man Lymphocytes # (Manual) Monocytes # (Manual) Eosinophils # (Manual) PT INR APTT Fibrinogen POC ABG pH ABG pH POC ABG pCO2 POC ABG pO2 ABG pO2 ABG HCO3 ABG O2 Saturation ABG Base Excess ABG Hemoglobin Oxyhemoglobin Sodium Potassium Chloride Carbon Dioxide BUN Creatinine Glucose POC Glucose 158 H 182 H Uric Acid Calcium Phosphorus Magnesium Iron TIBC AST ALT Total Creatine Kinase CK-MB (CK-2) Troponin T NT-Pro-B Natriuret Pep Total Protein Albumin Triglycerides HDL Cholesterol Folate Urine WBC (Auto) Urine Creatinine Urine Total Protein Vancomycin Trough 06/12/19 06/12/19 06/12/19 03:21 06:04 11:28 WBC RBC Hgb Hct MCV MCH MCHC RDW Plt Count Lymph % (Auto) [place] % (Auto) Eos % (Auto) Lymph # [place] # Eos # Seg Neutrophils % Seg Neuts % (Manual) Lymphocytes % (Manual) Monocytes % (Manual) Eosinophils % (Manual) Nucleated RBC % Seg Neutrophils # Seg Neutrophils # Man Lymphocytes # (Manual) Monocytes # (Manual) Eosinophils # (Manual) PT INR APTT Fibrinogen POC ABG pH ABG pH POC ABG pCO2 POC ABG pO2 ABG pO2 ABG HCO3 ABG O2 Saturation ABG Base Excess ABG Hemoglobin Oxyhemoglobin Sodium 148 H Potassium Chloride 107.3 H Carbon Dioxide BUN 34 H Creatinine 0.7 L Glucose 194 H POC Glucose 133 H 167 H Uric Acid Calcium Phosphorus Magnesium 1.40 L Iron TIBC AST ALT Total Creatine Kinase CK-MB (CK-2) Troponin T NT-Pro-B Natriuret Pep Total Protein Albumin Triglycerides HDL Cholesterol Folate Urine WBC (Auto) Urine Creatinine Urine Total Protein Vancomycin Trough 06/12/19 06/12/19 06/13/19 18:47 21:27 00:04 WBC RBC Hgb Hct MCV MCH MCHC RDW Plt Count Lymph % (Auto) [place] % (Auto) Eos % (Auto) Lymph # [place] # Eos # Seg Neutrophils % Seg Neuts % (Manual) Lymphocytes % (Manual) Monocytes % (Manual) Eosinophils % (Manual) Nucleated RBC % Seg Neutrophils # Seg Neutrophils # Man Lymphocytes # (Manual) Monocytes # (Manual) Eosinophils # (Manual) PT INR APTT Fibrinogen POC ABG pH ABG pH POC ABG pCO2 POC ABG pO2 ABG pO2 ABG HCO3 ABG O2 Saturation ABG Base Excess ABG Hemoglobin Oxyhemoglobin Sodium Potassium Chloride Carbon Dioxide BUN Creatinine Glucose POC Glucose 210 H 263 H 248 H Uric Acid Calcium Phosphorus Magnesium Iron TIBC AST ALT Total Creatine Kinase CK-MB (CK-2) Troponin T NT-Pro-B Natriuret Pep Total Protein Albumin Triglycerides HDL Cholesterol Folate Urine WBC (Auto) Urine Creatinine Urine Total Protein Vancomycin Trough 06/13/19 06/13/19 06/13/19 04:32 05:46 13:30 WBC RBC Hgb Hct MCV MCH MCHC RDW Plt Count Lymph % (Auto) [place] % (Auto) Eos % (Auto) Lymph # [place] # Eos # Seg Neutrophils % Seg Neuts % (Manual) Lymphocytes % (Manual) Monocytes % (Manual) Eosinophils % (Manual) Nucleated RBC % Seg Neutrophils # Seg Neutrophils # Man Lymphocytes # (Manual) Monocytes # (Manual) Eosinophils # (Manual) PT INR APTT Fibrinogen POC ABG pH ABG pH POC ABG pCO2 POC ABG pO2 ABG pO2 ABG HCO3 ABG O2 Saturation ABG Base Excess ABG Hemoglobin Oxyhemoglobin Sodium Potassium Chloride Carbon Dioxide BUN 27 H Creatinine 0.7 L Glucose 253 H POC Glucose 201 H 241 H Uric Acid Calcium Phosphorus Magnesium Iron TIBC AST ALT Total Creatine Kinase CK-MB (CK-2) Troponin T NT-Pro-B Natriuret Pep Total Protein Albumin Triglycerides HDL Cholesterol Folate Urine WBC (Auto) Urine Creatinine Urine Total Protein Vancomycin Trough 06/13/19 06/13/19 06/14/19 17:33 23:49 04:50 WBC RBC Hgb Hct MCV MCH MCHC RDW Plt Count Lymph % (Auto) [place] % (Auto) Eos % (Auto) Lymph # [place] # Eos # Seg Neutrophils % Seg Neuts % (Manual) Lymphocytes % (Manual) Monocytes % (Manual) Eosinophils % (Manual) Nucleated RBC % Seg Neutrophils # Seg Neutrophils # Man Lymphocytes # (Manual) Monocytes # (Manual) Eosinophils # (Manual) PT INR APTT Fibrinogen POC ABG pH ABG pH POC ABG pCO2 POC ABG pO2 ABG pO2 ABG HCO3 ABG O2 Saturation ABG Base Excess ABG Hemoglobin Oxyhemoglobin Sodium Potassium Chloride Carbon Dioxide BUN 37 H Creatinine Glucose 256 H POC Glucose 264 H 236 H Uric Acid Calcium Phosphorus Magnesium Iron TIBC AST ALT Total Creatine Kinase CK-MB (CK-2) Troponin T NT-Pro-B Natriuret Pep Total Protein Albumin Triglycerides HDL Cholesterol Folate Urine WBC (Auto) Urine Creatinine Urine Total Protein Vancomycin Trough 06/14/19 06/14/19 06/14/19 05:26 12:31 18:32 WBC RBC Hgb Hct MCV MCH MCHC RDW Plt Count Lymph % (Auto) [place] % (Auto) Eos % (Auto) Lymph # [place] # Eos # Seg Neutrophils % Seg Neuts % (Manual) Lymphocytes % (Manual) Monocytes % (Manual) Eosinophils % (Manual) Nucleated RBC % Seg Neutrophils # Seg Neutrophils # Man Lymphocytes # (Manual) Monocytes # (Manual) Eosinophils # (Manual) PT INR APTT Fibrinogen POC ABG pH ABG pH POC ABG pCO2 POC ABG pO2 ABG pO2 ABG HCO3 ABG O2 Saturation ABG Base Excess ABG Hemoglobin Oxyhemoglobin Sodium Potassium Chloride Carbon Dioxide BUN Creatinine Glucose POC Glucose 239 H 116 H 247 H Uric Acid Calcium Phosphorus Magnesium Iron TIBC AST ALT Total Creatine Kinase CK-MB (CK-2) Troponin T NT-Pro-B Natriuret Pep Total Protein Albumin Triglycerides HDL Cholesterol Folate Urine WBC (Auto) Urine Creatinine Urine Total Protein Vancomycin Trough 06/14/19 06/15/19 06/15/19 23:57 04:05 05:55 WBC RBC Hgb Hct MCV MCH MCHC RDW Plt Count Lymph % (Auto) [place] % (Auto) Eos % (Auto) Lymph # [place] # Eos # Seg Neutrophils % Seg Neuts % (Manual) Lymphocytes % (Manual) Monocytes % (Manual) Eosinophils % (Manual) Nucleated RBC % Seg Neutrophils # Seg Neutrophils # Man Lymphocytes # (Manual) Monocytes # (Manual) Eosinophils # (Manual) PT INR APTT Fibrinogen POC ABG pH ABG pH POC ABG pCO2 POC ABG pO2 ABG pO2 ABG HCO3 ABG O2 Saturation ABG Base Excess ABG Hemoglobin Oxyhemoglobin Sodium Potassium Chloride Carbon Dioxide BUN 46 H Creatinine 0.7 L Glucose 265 H POC Glucose 206 H 265 H Uric Acid Calcium Phosphorus Magnesium Iron TIBC AST ALT Total Creatine Kinase CK-MB (CK-2) Troponin T NT-Pro-B Natriuret Pep Total Protein Albumin Triglycerides HDL Cholesterol Folate Urine WBC (Auto) Urine Creatinine Urine Total Protein Vancomycin Trough 06/15/19 06/15/19 06/15/19 12:08 18:45 23:41 WBC RBC Hgb Hct MCV MCH MCHC RDW Plt Count Lymph % (Auto) [place] % (Auto) Eos % (Auto) Lymph # [place] # Eos # Seg Neutrophils % Seg Neuts % (Manual) Lymphocytes % (Manual) Monocytes % (Manual) Eosinophils % (Manual) Nucleated RBC % Seg Neutrophils # Seg Neutrophils # Man Lymphocytes # (Manual) Monocytes # (Manual) Eosinophils # (Manual) PT INR APTT Fibrinogen POC ABG pH ABG pH POC ABG pCO2 POC ABG pO2 ABG pO2 ABG HCO3 ABG O2 Saturation ABG Base Excess ABG Hemoglobin Oxyhemoglobin Sodium Potassium Chloride Carbon Dioxide BUN Creatinine Glucose POC Glucose 224 H 177 H 193 H Uric Acid Calcium Phosphorus Magnesium Iron TIBC AST ALT Total Creatine Kinase CK-MB (CK-2) Troponin T NT-Pro-B Natriuret Pep Total Protein Albumin Triglycerides HDL Cholesterol Folate Urine WBC (Auto) Urine Creatinine Urine Total Protein Vancomycin Trough 01/06/16/19 06/16/19 05:00 05:00 05:40 WBC 11.9 H RBC 3.24 L Hgb 9.0 L Hct 29.0 L MCV MCH MCHC 31 L RDW 18.6 H Plt Count 111 L Lymph % (Auto) [place] % (Auto) Eos % (Auto) Lymph # [place] # Eos # Seg Neutrophils % Seg Neuts % (Manual) 92.0 H Lymphocytes % (Manual) 2.0 L Monocytes % (Manual) Eosinophils % (Manual) Nucleated RBC % Seg Neutrophils # Seg Neutrophils # Man 10.9 H Lymphocytes # (Manual) 0.2 L Monocytes # (Manual) Eosinophils # (Manual) PT INR APTT Fibrinogen POC ABG pH ABG pH POC ABG pCO2 POC ABG pO2 ABG pO2 ABG HCO3 ABG O2 Saturation ABG Base Excess ABG Hemoglobin Oxyhemoglobin Sodium Potassium Chloride Carbon Dioxide 33 H BUN 49 H Creatinine 0.7 L Glucose 264 H POC Glucose 247 H Uric Acid Calcium Phosphorus Magnesium Iron TIBC AST ALT Total Creatine Kinase CK-MB (CK-2) Troponin T NT-Pro-B Natriuret Pep Total Protein Albumin Triglycerides HDL Cholesterol Folate Urine WBC (Auto) Urine Creatinine Urine Total Protein Vancomycin Trough 06/16/19 06/16/19 06/16/19 12:03 17:11 18:11 WBC RBC Hgb Hct MCV MCH MCHC RDW Plt Count Lymph % (Auto) [place] % (Auto) Eos % (Auto) Lymph # [place] # Eos # Seg Neutrophils % Seg Neuts % (Manual) Lymphocytes % (Manual) Monocytes % (Manual) Eosinophils % (Manual) Nucleated RBC % Seg Neutrophils # Seg Neutrophils # Man Lymphocytes # (Manual) Monocytes # (Manual) Eosinophils # (Manual) PT INR APTT Fibrinogen POC ABG pH ABG pH 7.289 L POC ABG pCO2 POC ABG pO2 ABG pO2 399.3 H ABG HCO3 30.1 H ABG O2 Saturation 99.6 H ABG Base Excess ABG Hemoglobin 8.6 L Oxyhemoglobin Sodium Potassium Chloride Carbon Dioxide BUN Creatinine Glucose POC Glucose 252 H 254 H Uric Acid Calcium Phosphorus Magnesium Iron TIBC AST ALT Total Creatine Kinase CK-MB (CK-2) Troponin T NT-Pro-B Natriuret Pep Total Protein Albumin Triglycerides HDL Cholesterol Folate Urine WBC (Auto) Urine Creatinine Urine Total Protein Vancomycin Trough 06/16/19 06/17/19 06/17/19 23:16 05:30 05:53 WBC RBC Hgb Hct MCV MCH MCHC RDW Plt Count Lymph % (Auto) [place] % (Auto) Eos % (Auto) Lymph # [place] # Eos # Seg Neutrophils % Seg Neuts % (Manual) Lymphocytes % (Manual) Monocytes % (Manual) Eosinophils % (Manual) Nucleated RBC % Seg Neutrophils # Seg Neutrophils # Man Lymphocytes # (Manual) Monocytes # (Manual) Eosinophils # (Manual) PT INR APTT Fibrinogen POC ABG pH ABG pH POC ABG pCO2 POC ABG pO2 ABG pO2 ABG HCO3 ABG O2 Saturation ABG Base Excess ABG Hemoglobin Oxyhemoglobin Sodium 147 H Potassium Chloride Carbon Dioxide 32 H BUN 60 H Creatinine Glucose 205 H POC Glucose 238 H 211 H Uric Acid Calcium Phosphorus Magnesium Iron TIBC AST ALT Total Creatine Kinase CK-MB (CK-2) Troponin T NT-Pro-B Natriuret Pep Total Protein Albumin Triglycerides HDL Cholesterol Folate Urine WBC (Auto) Urine Creatinine Urine Total Protein Vancomycin Trough 06/17/19 06/17/19 06/17/19 09:50 12:27 12:45 WBC RBC 2.79 L Hgb 8.2 L Hct 24.6 L MCV MCH MCHC RDW 18.5 H Plt Count 95 L Lymph % (Auto) [place] % (Auto) Eos % (Auto) Lymph # [place] # Eos # Seg Neutrophils % Seg Neuts % (Manual) Lymphocytes % (Manual) Monocytes % (Manual) Eosinophils % (Manual) Nucleated RBC % Seg Neutrophils # Seg Neutrophils # Man Lymphocytes # (Manual) Monocytes # (Manual) Eosinophils # (Manual) PT INR APTT Fibrinogen 194 L POC ABG pH ABG pH POC ABG pCO2 POC ABG pO2 ABG pO2 ABG HCO3 ABG O2 Saturation ABG Base Excess ABG Hemoglobin Oxyhemoglobin Sodium Potassium Chloride Carbon Dioxide BUN Creatinine Glucose POC Glucose 224 H Uric Acid Calcium Phosphorus Magnesium Iron TIBC AST ALT Total Creatine Kinase CK-MB (CK-2) Troponin T NT-Pro-B Natriuret Pep Total Protein Albumin Triglycerides HDL Cholesterol Folate Urine WBC (Auto) Urine Creatinine Urine Total Protein Vancomycin Trough 06/17/19 06/17/19 06/17/19 18:41 22:00 23:23 WBC RBC Hgb Hct MCV MCH MCHC RDW Plt Count Lymph % (Auto) [place] % (Auto) Eos % (Auto) Lymph # [place] # Eos # Seg Neutrophils % Seg Neuts % (Manual) Lymphocytes % (Manual) Monocytes % (Manual) Eosinophils % (Manual) Nucleated RBC % Seg Neutrophils # Seg Neutrophils # Man Lymphocytes # (Manual) Monocytes # (Manual) Eosinophils # (Manual) PT INR APTT Fibrinogen POC ABG pH ABG pH POC ABG pCO2 POC ABG pO2 ABG pO2 ABG HCO3 ABG O2 Saturation ABG Base Excess ABG Hemoglobin Oxyhemoglobin Sodium Potassium Chloride Carbon Dioxide BUN Creatinine Glucose POC Glucose 198 H 166 H 171 H Uric Acid Calcium Phosphorus Magnesium Iron TIBC AST ALT Total Creatine Kinase CK-MB (CK-2) Troponin T NT-Pro-B Natriuret Pep Total Protein Albumin Triglycerides HDL Cholesterol Folate Urine WBC (Auto) Urine Creatinine Urine Total Protein Vancomycin Trough 06/17/19 06/18/19 06/18/19 Unknown 03:50 04:25 WBC RBC Hgb Hct MCV MCH MCHC RDW Plt Count Lymph % (Auto) [place] % (Auto) Eos % (Auto) Lymph # [place] # Eos # Seg Neutrophils % Seg Neuts % (Manual) Lymphocytes % (Manual) Monocytes % (Manual) Eosinophils % (Manual) Nucleated RBC % Seg Neutrophils # Seg Neutrophils # Man Lymphocytes # (Manual) Monocytes # (Manual) Eosinophils # (Manual) PT INR APTT Fibrinogen POC ABG pH ABG pH 7.564 H 7.499 H POC ABG pCO2 POC ABG pO2 ABG pO2 238.6 H 130.8 H ABG HCO3 33.6 H 32.5 H ABG O2 Saturation 99.4 H ABG Base Excess 10.6 H 8.5 H ABG Hemoglobin 7.9 L 8.8 L Oxyhemoglobin Sodium 151 H Potassium 3.4 L Chloride Carbon Dioxide BUN 66 H Creatinine Glucose 189 H POC Glucose Uric Acid Calcium Phosphorus Magnesium Iron TIBC AST ALT Total Creatine Kinase CK-MB (CK-2) Troponin T NT-Pro-B Natriuret Pep Total Protein Albumin Triglycerides HDL Cholesterol Folate Urine WBC (Auto) Urine Creatinine Urine Total Protein Vancomycin Trough 06/18/19 06/18/19 06/18/19 05:25 05:27 11:50 WBC RBC 2.61 L Hgb 7.4 L Hct 22.9 L MCV MCH MCHC RDW 19.9 H Plt Count 81 L Lymph % (Auto) 12.9 L [place] % (Auto) 7.7 H Eos % (Auto) Lymph # 1.1 L [place] # Eos # Seg Neutrophils % 77.4 H Seg Neuts % (Manual) Lymphocytes % (Manual) Monocytes % (Manual) Eosinophils % (Manual) Nucleated RBC % Seg Neutrophils # Seg Neutrophils # Man Lymphocytes # (Manual) Monocytes # (Manual) Eosinophils # (Manual) PT INR APTT Fibrinogen POC ABG pH ABG pH POC ABG pCO2 POC ABG pO2 ABG pO2 ABG HCO3 ABG O2 Saturation ABG Base Excess ABG Hemoglobin Oxyhemoglobin Sodium Potassium Chloride Carbon Dioxide BUN Creatinine Glucose POC Glucose 186 H 263 H Uric Acid Calcium Phosphorus Magnesium Iron TIBC AST ALT Total Creatine Kinase CK-MB (CK-2) Troponin T NT-Pro-B Natriuret Pep Total Protein Albumin Triglycerides HDL Cholesterol Folate Urine WBC (Auto) Urine Creatinine Urine Total Protein Vancomycin Trough 06/18/19 06/18/19 06/18/19 18:35 21:31 23:21 WBC RBC Hgb Hct MCV MCH MCHC RDW Plt Count Lymph % (Auto) [place] % (Auto) Eos % (Auto) Lymph # [place] # Eos # Seg Neutrophils % Seg Neuts % (Manual) Lymphocytes % (Manual) Monocytes % (Manual) Eosinophils % (Manual) Nucleated RBC % Seg Neutrophils # Seg Neutrophils # Man Lymphocytes # (Manual) Monocytes # (Manual) Eosinophils # (Manual) PT INR APTT Fibrinogen POC ABG pH ABG pH POC ABG pCO2 POC ABG pO2 ABG pO2 ABG HCO3 ABG O2 Saturation ABG Base Excess ABG Hemoglobin Oxyhemoglobin Sodium Potassium Chloride Carbon Dioxide BUN Creatinine Glucose POC Glucose 154 H 186 H 202 H Uric Acid Calcium Phosphorus Magnesium Iron TIBC AST ALT Total Creatine Kinase CK-MB (CK-2) Troponin T NT-Pro-B Natriuret Pep Total Protein Albumin Triglycerides HDL Cholesterol Folate Urine WBC (Auto) Urine Creatinine Urine Total Protein Vancomycin Trough 06/19/19 06/19/19 06/19/19 03:18 04:30 04:30 WBC RBC 2.65 L Hgb 7.5 L Hct 23.1 L MCV MCH MCHC RDW 19.4 H Plt Count 74 L Lymph % (Auto) 8.8 L [place] % (Auto) 9.4 H Eos % (Auto) 4.7 H Lymph # 0.6 L [place] # Eos # Seg Neutrophils % 76.6 H Seg Neuts % (Manual) Lymphocytes % (Manual) Monocytes % (Manual) Eosinophils % (Manual) Nucleated RBC % Seg Neutrophils # Seg Neutrophils # Man Lymphocytes # (Manual) Monocytes # (Manual) Eosinophils # (Manual) PT INR APTT Fibrinogen POC ABG pH ABG pH 7.452 H POC ABG pCO2 POC ABG pO2 ABG pO2 105.5 H ABG HCO3 32.3 H ABG O2 Saturation ABG Base Excess 7.6 H ABG Hemoglobin 6.9 L Oxyhemoglobin Sodium 150 H Potassium 3.3 L Chloride Carbon Dioxide 31 H BUN 56 H Creatinine Glucose 197 H POC Glucose Uric Acid Calcium Phosphorus Magnesium Iron TIBC AST ALT Total Creatine Kinase CK-MB (CK-2) Troponin T NT-Pro-B Natriuret Pep Total Protein Albumin Triglycerides 210 H HDL Cholesterol Folate Urine WBC (Auto) Urine Creatinine Urine Total Protein Vancomycin Trough 06/19/19 06/19/19 06/19/19 05:24 12:18 18:55 WBC RBC Hgb Hct MCV MCH MCHC RDW Plt Count Lymph % (Auto) [place] % (Auto) Eos % (Auto) Lymph # [place] # Eos # Seg Neutrophils % Seg Neuts % (Manual) Lymphocytes % (Manual) Monocytes % (Manual) Eosinophils % (Manual) Nucleated RBC % Seg Neutrophils # Seg Neutrophils # Man Lymphocytes # (Manual) Monocytes # (Manual) Eosinophils # (Manual) PT INR APTT Fibrinogen POC ABG pH ABG pH POC ABG pCO2 POC ABG pO2 ABG pO2 ABG HCO3 ABG O2 Saturation ABG Base Excess ABG Hemoglobin Oxyhemoglobin Sodium Potassium Chloride Carbon Dioxide BUN Creatinine Glucose POC Glucose 176 H 260 H 192 H Uric Acid Calcium Phosphorus Magnesium Iron TIBC AST ALT Total Creatine Kinase CK-MB (CK-2) Troponin T NT-Pro-B Natriuret Pep Total Protein Albumin Triglycerides HDL Cholesterol Folate Urine WBC (Auto) Urine Creatinine Urine Total Protein Vancomycin Trough 06/19/19 06/19/19 06/20/19 22:57 23:46 04:40 WBC RBC 2.79 L Hgb 7.9 L Hct 24.3 L MCV MCH MCHC RDW 19.6 H Plt Count 92 L Lymph % (Auto) 9.2 L [place] % (Auto) 12.0 H Eos % (Auto) 5.2 H Lymph # 0.9 L [place] # 1.2 H Eos # 0.5 H Seg Neutrophils % 73.3 H Seg Neuts % (Manual) Lymphocytes % (Manual) Monocytes % (Manual) Eosinophils % (Manual) Nucleated RBC % Seg Neutrophils # Seg Neutrophils # Man Lymphocytes # (Manual) Monocytes # (Manual) Eosinophils # (Manual) PT INR APTT Fibrinogen POC ABG pH ABG pH POC ABG pCO2 POC ABG pO2 ABG pO2 ABG HCO3 ABG O2 Saturation ABG Base Excess ABG Hemoglobin Oxyhemoglobin Sodium Potassium Chloride Carbon Dioxide BUN Creatinine Glucose POC Glucose 145 H 216 H Uric Acid Calcium Phosphorus Magnesium Iron TIBC AST ALT Total Creatine Kinase CK-MB (CK-2) Troponin T NT-Pro-B Natriuret Pep Total Protein Albumin Triglycerides HDL Cholesterol Folate Urine WBC (Auto) Urine Creatinine Urine Total Protein Vancomycin Trough 06/20/19 06/20/19 06/20/19 04:40 05:40 05:54 WBC RBC Hgb Hct MCV MCH MCHC RDW Plt Count Lymph % (Auto) [place] % (Auto) Eos % (Auto) Lymph # [place] # Eos # Seg Neutrophils % Seg Neuts % (Manual) Lymphocytes % (Manual) Monocytes % (Manual) Eosinophils % (Manual) Nucleated RBC % Seg Neutrophils # Seg Neutrophils # Man Lymphocytes # (Manual) Monocytes # (Manual) Eosinophils # (Manual) PT INR APTT Fibrinogen POC ABG pH ABG pH 7.455 H POC ABG pCO2 POC ABG pO2 ABG pO2 60.9 L ABG HCO3 30.3 H ABG O2 Saturation 92.3 L ABG Base Excess 5.8 H ABG Hemoglobin 8.2 L Oxyhemoglobin 90.1 L Sodium Potassium 3.5 L Chloride Carbon Dioxide BUN 59 H Creatinine Glucose 200 H POC Glucose 190 H Uric Acid Calcium Phosphorus Magnesium 1.60 L Iron TIBC AST ALT Total Creatine Kinase CK-MB (CK-2) Troponin T NT-Pro-B Natriuret Pep Total Protein Albumin Triglycerides HDL Cholesterol Folate Urine WBC (Auto) Urine Creatinine Urine Total Protein Vancomycin Trough 06/20/19 06/20/19 06/20/19 09:12 09:12 12:24 WBC RBC Hgb Hct MCV MCH MCHC RDW Plt Count Lymph % (Auto) [place] % (Auto) Eos % (Auto) Lymph # [place] # Eos # Seg Neutrophils % Seg Neuts % (Manual) Lymphocytes % (Manual) Monocytes % (Manual) Eosinophils % (Manual) Nucleated RBC % Seg Neutrophils # Seg Neutrophils # Man Lymphocytes # (Manual) Monocytes # (Manual) Eosinophils # (Manual) PT INR APTT Fibrinogen POC ABG pH ABG pH POC ABG pCO2 POC ABG pO2 ABG pO2 ABG HCO3 ABG O2 Saturation ABG Base Excess ABG Hemoglobin Oxyhemoglobin Sodium Potassium Chloride Carbon Dioxide BUN Creatinine Glucose POC Glucose 225 H Uric Acid Calcium Phosphorus Magnesium Iron 45 L TIBC 110 L AST ALT Total Creatine Kinase CK-MB (CK-2) Troponin T NT-Pro-B Natriuret Pep Total Protein Albumin Triglycerides HDL Cholesterol Folate 7.01 L Urine WBC (Auto) Urine Creatinine Urine Total Protein Vancomycin Trough 06/20/19 06/20/19 06/20/19 17:42 21:55 23:24 WBC RBC Hgb Hct MCV MCH MCHC RDW Plt Count Lymph % (Auto) [place] % (Auto) Eos % (Auto) Lymph # [place] # Eos # Seg Neutrophils % Seg Neuts % (Manual) Lymphocytes % (Manual) Monocytes % (Manual) Eosinophils % (Manual) Nucleated RBC % Seg Neutrophils # Seg Neutrophils # Man Lymphocytes # (Manual) Monocytes # (Manual) Eosinophils # (Manual) PT INR APTT Fibrinogen POC ABG pH ABG pH POC ABG pCO2 POC ABG pO2 ABG pO2 ABG HCO3 ABG O2 Saturation ABG Base Excess ABG Hemoglobin Oxyhemoglobin Sodium Potassium Chloride Carbon Dioxide BUN Creatinine Glucose POC Glucose 255 H 218 H 215 H Uric Acid Calcium Phosphorus Magnesium Iron TIBC AST ALT Total Creatine Kinase CK-MB (CK-2) Troponin T NT-Pro-B Natriuret Pep Total Protein Albumin Triglycerides HDL Cholesterol Folate Urine WBC (Auto) Urine Creatinine Urine Total Protein Vancomycin Trough 06/21/19 06/21/19 06/21/19 03:32 03:40 05:20 WBC 12.8 H RBC 3.03 L Hgb 8.5 L Hct 26.2 L MCV MCH MCHC RDW 19.4 H Plt Count 131 L Lymph % (Auto) [place] % (Auto) Eos % (Auto) Lymph # [place] # Eos # Seg Neutrophils % Seg Neuts % (Manual) 78.0 H Lymphocytes % (Manual) 5.0 L Monocytes % (Manual) 11.0 H Eosinophils % (Manual) Nucleated RBC % Seg Neutrophils # Seg Neutrophils # Man 10.0 H Lymphocytes # (Manual) 0.6 L Monocytes # (Manual) 1.4 H Eosinophils # (Manual) 0.5 H PT INR APTT Fibrinogen POC ABG pH ABG pH 7.476 H POC ABG pCO2 POC ABG pO2 ABG pO2 162.0 H ABG HCO3 26.8 H ABG O2 Saturation 99.1 H ABG Base Excess 3.1 H ABG Hemoglobin 8.6 L Oxyhemoglobin Sodium Potassium Chloride Carbon Dioxide BUN Creatinine Glucose POC Glucose 202 H Uric Acid Calcium Phosphorus Magnesium Iron TIBC AST ALT Total Creatine Kinase CK-MB (CK-2) Troponin T NT-Pro-B Natriuret Pep Total Protein Albumin Triglycerides HDL Cholesterol Folate Urine WBC (Auto) Urine Creatinine Urine Total Protein Vancomycin Trough 06/21/19 06/21/19 06/21/19 05:20 12:30 18:18 WBC RBC Hgb Hct MCV MCH MCHC RDW Plt Count Lymph % (Auto) [place] % (Auto) Eos % (Auto) Lymph # [place] # Eos # Seg Neutrophils % Seg Neuts % (Manual) Lymphocytes % (Manual) Monocytes % (Manual) Eosinophils % (Manual) Nucleated RBC % Seg Neutrophils # Seg Neutrophils # Man Lymphocytes # (Manual) Monocytes # (Manual) Eosinophils # (Manual) PT INR APTT Fibrinogen POC ABG pH ABG pH POC ABG pCO2 POC ABG pO2 ABG pO2 ABG HCO3 ABG O2 Saturation ABG Base Excess ABG Hemoglobin Oxyhemoglobin Sodium Potassium Chloride 97.7 L Carbon Dioxide BUN 69 H Creatinine Glucose 239 H POC Glucose 176 H 187 H Uric Acid Calcium Phosphorus Magnesium 2.40 H Iron TIBC AST ALT Total Creatine Kinase CK-MB (CK-2) Troponin T NT-Pro-B Natriuret Pep Total Protein Albumin Triglycerides HDL Cholesterol Folate Urine WBC (Auto) Urine Creatinine Urine Total Protein Vancomycin Trough 06/22/19 06/22/19 06/22/19 04:11 05:30 05:30 WBC 12.6 H RBC 3.10 L Hgb 8.7 L Hct 27.0 L MCV MCH MCHC RDW 19.8 H Plt Count Lymph % (Auto) [place] % (Auto) Eos % (Auto) Lymph # [place] # Eos # Seg Neutrophils % Seg Neuts % (Manual) Lymphocytes % (Manual) Monocytes % (Manual) 10.0 H Eosinophils % (Manual) Nucleated RBC % Seg Neutrophils # Seg Neutrophils # Man 8.7 H Lymphocytes # (Manual) Monocytes # (Manual) 1.3 H Eosinophils # (Manual) PT INR APTT Fibrinogen POC ABG pH ABG pH POC ABG pCO2 POC ABG pO2 ABG pO2 ABG HCO3 27.7 H ABG O2 Saturation ABG Base Excess 3.3 H ABG Hemoglobin 8.5 L Oxyhemoglobin 94.9 L Sodium Potassium Chloride Carbon Dioxide BUN 66 H Creatinine Glucose 103 H POC Glucose Uric Acid Calcium Phosphorus Magnesium Iron TIBC AST ALT Total Creatine Kinase CK-MB (CK-2) Troponin T NT-Pro-B Natriuret Pep Total Protein Albumin Triglycerides HDL Cholesterol Folate Urine WBC (Auto) Urine Creatinine Urine Total Protein Vancomycin Trough 06/22/19 06/22/19 06/23/19 17:43 23:25 02:00 WBC RBC Hgb Hct MCV MCH MCHC RDW Plt Count Lymph % (Auto) [place] % (Auto) Eos % (Auto) Lymph # [place] # Eos # Seg Neutrophils % Seg Neuts % (Manual) Lymphocytes % (Manual) Monocytes % (Manual) Eosinophils % (Manual) Nucleated RBC % Seg Neutrophils # Seg Neutrophils # Man Lymphocytes # (Manual) Monocytes # (Manual) Eosinophils # (Manual) PT INR APTT Fibrinogen POC ABG pH ABG pH 7.469 H POC ABG pCO2 POC ABG pO2 ABG pO2 58.7 L ABG HCO3 28.0 H ABG O2 Saturation 94.6 L ABG Base Excess 4.0 H ABG Hemoglobin 7.1 L Oxyhemoglobin 92.2 L Sodium Potassium Chloride Carbon Dioxide BUN Creatinine Glucose POC Glucose 143 H 106 H Uric Acid Calcium Phosphorus Magnesium Iron TIBC AST ALT Total Creatine Kinase CK-MB (CK-2) Troponin T NT-Pro-B Natriuret Pep Total Protein Albumin Triglycerides HDL Cholesterol Folate Urine WBC (Auto) Urine Creatinine Urine Total Protein Vancomycin Trough 06/23/19 06/23/19 06/23/19 05:24 05:24 11:43 WBC 12.6 H RBC 2.96 L Hgb 8.3 L Hct 25.5 L MCV MCH MCHC RDW 20.2 H Plt Count Lymph % (Auto) [place] % (Auto) Eos % (Auto) Lymph # [place] # Eos # Seg Neutrophils % Seg Neuts % (Manual) Lymphocytes % (Manual) 12.0 L Monocytes % (Manual) 11.0 H Eosinophils % (Manual) 6.0 H Nucleated RBC % Seg Neutrophils # Seg Neutrophils # Man 8.8 H Lymphocytes # (Manual) Monocytes # (Manual) 1.4 H Eosinophils # (Manual) 0.8 H PT INR APTT Fibrinogen POC ABG pH ABG pH POC ABG pCO2 POC ABG pO2 ABG pO2 ABG HCO3 ABG O2 Saturation ABG Base Excess ABG Hemoglobin Oxyhemoglobin Sodium 146 H Potassium 3.5 L Chloride Carbon Dioxide BUN 48 H Creatinine Glucose 123 H POC Glucose 120 H Uric Acid Calcium Phosphorus Magnesium Iron TIBC AST ALT Total Creatine Kinase CK-MB (CK-2) Troponin T NT-Pro-B Natriuret Pep Total Protein Albumin Triglycerides HDL Cholesterol Folate Urine WBC (Auto) Urine Creatinine Urine Total Protein Vancomycin Trough 06/23/19 06/24/19 06/24/19 17:39 06:53 06:53 WBC 12.3 H RBC 2.87 L Hgb 8.0 L Hct 24.9 L MCV MCH MCHC RDW 20.5 H Plt Count Lymph % (Auto) [place] % (Auto) 8.8 H Eos % (Auto) 4.4 H Lymph # [place] # 1.1 H Eos # 0.5 H Seg Neutrophils % Seg Neuts % (Manual) Lymphocytes % (Manual) Monocytes % (Manual) Eosinophils % (Manual) Nucleated RBC % Seg Neutrophils # Seg Neutrophils # Man Lymphocytes # (Manual) Monocytes # (Manual) Eosinophils # (Manual) PT INR APTT Fibrinogen POC ABG pH ABG pH POC ABG pCO2 POC ABG pO2 ABG pO2 ABG HCO3 ABG O2 Saturation ABG Base Excess ABG Hemoglobin Oxyhemoglobin Sodium Potassium Chloride 107.1 H Carbon Dioxide 21 L BUN 29 H Creatinine 0.6 L Glucose 117 H POC Glucose 111 H Uric Acid Calcium Phosphorus Magnesium 1.60 L Iron TIBC AST ALT Total Creatine Kinase CK-MB (CK-2) Troponin T NT-Pro-B Natriuret Pep Total Protein Albumin Triglycerides HDL Cholesterol Folate Urine WBC (Auto) Urine Creatinine Urine Total Protein Vancomycin Trough 06/24/19 06/24/19 06/24/19 12:12 18:01 23:20 WBC RBC Hgb Hct MCV MCH MCHC RDW Plt Count Lymph % (Auto) [place] % (Auto) Eos % (Auto) Lymph # [place] # Eos # Seg Neutrophils % Seg Neuts % (Manual) Lymphocytes % (Manual) Monocytes % (Manual) Eosinophils % (Manual) Nucleated RBC % Seg Neutrophils # Seg Neutrophils # Man Lymphocytes # (Manual) Monocytes # (Manual) Eosinophils # (Manual) PT INR APTT Fibrinogen POC ABG pH ABG pH POC ABG pCO2 POC ABG pO2 ABG pO2 ABG HCO3 ABG O2 Saturation ABG Base Excess ABG Hemoglobin Oxyhemoglobin Sodium Potassium Chloride Carbon Dioxide BUN Creatinine Glucose POC Glucose 158 H 133 H 106 H Uric Acid Calcium Phosphorus Magnesium Iron TIBC AST ALT Total Creatine Kinase CK-MB (CK-2) Troponin T NT-Pro-B Natriuret Pep Total Protein Albumin Triglycerides HDL Cholesterol Folate Urine WBC (Auto) Urine Creatinine Urine Total Protein Vancomycin Trough 06/25/19 06/25/19 06/25/19 04:46 04:46 05:36 WBC 12.3 H RBC 2.98 L Hgb 8.3 L Hct 26.4 L MCV MCH MCHC 31 L RDW 20.1 H Plt Count Lymph % (Auto) [place] % (Auto) Eos % (Auto) Lymph # [place] # Eos # Seg Neutrophils % Seg Neuts % (Manual) Lymphocytes % (Manual) Monocytes % (Manual) 10.0 H Eosinophils % (Manual) Nucleated RBC % Seg Neutrophils # Seg Neutrophils # Man 8.1 H Lymphocytes # (Manual) Monocytes # (Manual) 1.2 H Eosinophils # (Manual) PT INR APTT Fibrinogen POC ABG pH ABG pH POC ABG pCO2 POC ABG pO2 ABG pO2 ABG HCO3 ABG O2 Saturation ABG Base Excess ABG Hemoglobin Oxyhemoglobin Sodium 148 H Potassium Chloride 108.0 H Carbon Dioxide BUN 21 H Creatinine 0.7 L Glucose 120 H POC Glucose 121 H Uric Acid Calcium Phosphorus Magnesium Iron TIBC AST ALT Total Creatine Kinase CK-MB (CK-2) Troponin T NT-Pro-B Natriuret Pep Total Protein Albumin Triglycerides HDL Cholesterol Folate Urine WBC (Auto) Urine Creatinine Urine Total Protein Vancomycin Trough 06/25/19 06/25/19 06/26/19 14:02 18:30 00:01 WBC RBC Hgb Hct MCV MCH MCHC RDW Plt Count Lymph % (Auto) [place] % (Auto) Eos % (Auto) Lymph # [place] # Eos # Seg Neutrophils % Seg Neuts % (Manual) Lymphocytes % (Manual) Monocytes % (Manual) Eosinophils % (Manual) Nucleated RBC % Seg Neutrophils # Seg Neutrophils # Man Lymphocytes # (Manual) Monocytes # (Manual) Eosinophils # (Manual) PT INR APTT Fibrinogen POC ABG pH ABG pH POC ABG pCO2 POC ABG pO2 ABG pO2 ABG HCO3 ABG O2 Saturation ABG Base Excess ABG Hemoglobin Oxyhemoglobin Sodium Potassium Chloride Carbon Dioxide BUN Creatinine Glucose POC Glucose 125 H 145 H 142 H Uric Acid Calcium Phosphorus Magnesium Iron TIBC AST ALT Total Creatine Kinase CK-MB (CK-2) Troponin T NT-Pro-B Natriuret Pep Total Protein Albumin Triglycerides HDL Cholesterol Folate Urine WBC (Auto) Urine Creatinine Urine Total Protein Vancomycin Trough 06/26/19 06/26/19 06/26/19 04:43 04:43 05:41 WBC RBC 3.02 L Hgb 8.6 L Hct 27.0 L MCV MCH MCHC RDW 20.4 H Plt Count Lymph % (Auto) [place] % (Auto) Eos % (Auto) Lymph # [place] # Eos # Seg Neutrophils % Seg Neuts % (Manual) Lymphocytes % (Manual) Monocytes % (Manual) 9.0 H Eosinophils % (Manual) Nucleated RBC % Seg Neutrophils # Seg Neutrophils # Man Lymphocytes # (Manual) Monocytes # (Manual) 1.0 H Eosinophils # (Manual) PT INR APTT Fibrinogen POC ABG pH ABG pH POC ABG pCO2 POC ABG pO2 ABG pO2 ABG HCO3 ABG O2 Saturation ABG Base Excess ABG Hemoglobin Oxyhemoglobin Sodium Potassium Chloride Carbon Dioxide BUN Creatinine 0.7 L Glucose 111 H POC Glucose 110 H Uric Acid Calcium Phosphorus Magnesium 1.60 L Iron TIBC AST ALT Total Creatine Kinase CK-MB (CK-2) Troponin T NT-Pro-B Natriuret Pep Total Protein Albumin Triglycerides HDL Cholesterol Folate Urine WBC (Auto) Urine Creatinine Urine Total Protein Vancomycin Trough 06/26/19 06/26/19 06/27/19 11:55 18:07 12:10 WBC RBC Hgb Hct MCV MCH MCHC RDW Plt Count Lymph % (Auto) [place] % (Auto) Eos % (Auto) Lymph # [place] # Eos # Seg Neutrophils % Seg Neuts % (Manual) Lymphocytes % (Manual) Monocytes % (Manual) Eosinophils % (Manual) Nucleated RBC % Seg Neutrophils # Seg Neutrophils # Man Lymphocytes # (Manual) Monocytes # (Manual) Eosinophils # (Manual) PT INR APTT Fibrinogen POC ABG pH ABG pH POC ABG pCO2 POC ABG pO2 ABG pO2 ABG HCO3 ABG O2 Saturation ABG Base Excess ABG Hemoglobin Oxyhemoglobin Sodium Potassium Chloride Carbon Dioxide BUN Creatinine Glucose POC Glucose 159 H 107 H 121 H Uric Acid Calcium Phosphorus Magnesium Iron TIBC AST ALT Total Creatine Kinase CK-MB (CK-2) Troponin T NT-Pro-B Natriuret Pep Total Protein Albumin Triglycerides HDL Cholesterol Folate Urine WBC (Auto) Urine Creatinine Urine Total Protein Vancomycin Trough 06/28/19 06/29/19 06/29/19 05:54 13:10 17:58 WBC RBC Hgb Hct MCV MCH MCHC RDW Plt Count Lymph % (Auto) [place] % (Auto) Eos % (Auto) Lymph # [place] # Eos # Seg Neutrophils % Seg Neuts % (Manual) Lymphocytes % (Manual) Monocytes % (Manual) Eosinophils % (Manual) Nucleated RBC % Seg Neutrophils # Seg Neutrophils # Man Lymphocytes # (Manual) Monocytes # (Manual) Eosinophils # (Manual) PT INR APTT Fibrinogen POC ABG pH ABG pH POC ABG pCO2 POC ABG pO2 ABG pO2 ABG HCO3 ABG O2 Saturation ABG Base Excess ABG Hemoglobin Oxyhemoglobin Sodium Potassium Chloride Carbon Dioxide BUN Creatinine Glucose POC Glucose 107 H 115 H 108 H Uric Acid Calcium Phosphorus Magnesium Iron TIBC AST ALT Total Creatine Kinase CK-MB (CK-2) Troponin T NT-Pro-B Natriuret Pep Total Protein Albumin Triglycerides HDL Cholesterol Folate Urine WBC (Auto) Urine Creatinine Urine Total Protein Vancomycin Trough 06/30/19 06/30/19 07/01/19 12:00 18:13 05:49 WBC RBC Hgb Hct MCV MCH MCHC RDW Plt Count Lymph % (Auto) [place] % (Auto) Eos % (Auto) Lymph # [place] # Eos # Seg Neutrophils % Seg Neuts % (Manual) Lymphocytes % (Manual) Monocytes % (Manual) Eosinophils % (Manual) Nucleated RBC % Seg Neutrophils # Seg Neutrophils # Man Lymphocytes # (Manual) Monocytes # (Manual) Eosinophils # (Manual) PT INR APTT Fibrinogen POC ABG pH ABG pH POC ABG pCO2 POC ABG pO2 ABG pO2 ABG HCO3 ABG O2 Saturation ABG Base Excess ABG Hemoglobin Oxyhemoglobin Sodium Potassium Chloride Carbon Dioxide BUN Creatinine Glucose POC Glucose 108 H 114 H 114 H Uric Acid Calcium Phosphorus Magnesium Iron TIBC AST ALT Total Creatine Kinase CK-MB (CK-2) Troponin T NT-Pro-B Natriuret Pep Total Protein Albumin Triglycerides HDL Cholesterol Folate Urine WBC (Auto) Urine Creatinine Urine Total Protein Vancomycin Trough 07/01/19 07/01/19 07/01/19 07:58 07:58 12:06 WBC 11.5 H RBC 3.24 L Hgb 9.0 L Hct 28.4 L MCV MCH MCHC RDW 20.8 H Plt Count Lymph % (Auto) 8.3 L [place] % (Auto) 10.0 H Eos % (Auto) Lymph # 0.9 L [place] # 1.2 H Eos # Seg Neutrophils % 79.4 H Seg Neuts % (Manual) Lymphocytes % (Manual) Monocytes % (Manual) Eosinophils % (Manual) Nucleated RBC % Seg Neutrophils # 9.1 H Seg Neutrophils # Man Lymphocytes # (Manual) Monocytes # (Manual) Eosinophils # (Manual) PT INR APTT Fibrinogen POC ABG pH ABG pH POC ABG pCO2 POC ABG pO2 ABG pO2 ABG HCO3 ABG O2 Saturation ABG Base Excess ABG Hemoglobin Oxyhemoglobin Sodium Potassium Chloride Carbon Dioxide BUN Creatinine 0.4 L Glucose 130 H POC Glucose 133 H Uric Acid Calcium Phosphorus Magnesium Iron TIBC AST ALT Total Creatine Kinase CK-MB (CK-2) Troponin T NT-Pro-B Natriuret Pep Total Protein Albumin Triglycerides HDL Cholesterol Folate Urine WBC (Auto) Urine Creatinine Urine Total Protein Vancomycin Trough 07/02/19 07/02/19 07/02/19 05:54 13:27 13:39 WBC RBC Hgb Hct MCV MCH MCHC RDW Plt Count Lymph % (Auto) [place] % (Auto) Eos % (Auto) Lymph # [place] # Eos # Seg Neutrophils % Seg Neuts % (Manual) Lymphocytes % (Manual) Monocytes % (Manual) Eosinophils % (Manual) Nucleated RBC % Seg Neutrophils # Seg Neutrophils # Man Lymphocytes # (Manual) Monocytes # (Manual) Eosinophils # (Manual) PT INR APTT Fibrinogen POC ABG pH ABG pH POC ABG pCO2 POC ABG pO2 ABG pO2 ABG HCO3 ABG O2 Saturation ABG Base Excess ABG Hemoglobin Oxyhemoglobin Sodium Potassium Chloride Carbon Dioxide BUN Creatinine Glucose POC Glucose 111 H 123 H 116 H Uric Acid Calcium Phosphorus Magnesium Iron TIBC AST ALT Total Creatine Kinase CK-MB (CK-2) Troponin T NT-Pro-B Natriuret Pep Total Protein Albumin Triglycerides HDL Cholesterol Folate Urine WBC (Auto) Urine Creatinine Urine Total Protein Vancomycin Trough 07/02/19 07/03/19 07/04/19 18:00 06:06 12:15 WBC RBC Hgb Hct MCV MCH MCHC RDW Plt Count Lymph % (Auto) [place] % (Auto) Eos % (Auto) Lymph # [place] # Eos # Seg Neutrophils % Seg Neuts % (Manual) Lymphocytes % (Manual) Monocytes % (Manual) Eosinophils % (Manual) Nucleated RBC % Seg Neutrophils # Seg Neutrophils # Man Lymphocytes # (Manual) Monocytes # (Manual) Eosinophils # (Manual) PT INR APTT Fibrinogen POC ABG pH ABG pH POC ABG pCO2 POC ABG pO2 ABG pO2 ABG HCO3 ABG O2 Saturation ABG Base Excess ABG Hemoglobin Oxyhemoglobin Sodium Potassium Chloride Carbon Dioxide BUN Creatinine Glucose POC Glucose 118 H 127 H 122 H Uric Acid Calcium Phosphorus Magnesium Iron TIBC AST ALT Total Creatine Kinase CK-MB (CK-2) Troponin T NT-Pro-B Natriuret Pep Total Protein Albumin Triglycerides HDL Cholesterol Folate Urine WBC (Auto) Urine Creatinine Urine Total Protein Vancomycin Trough 07/04/19 07/04/19 07/05/19 18:09 23:48 06:30 WBC RBC Hgb Hct MCV MCH MCHC RDW Plt Count Lymph % (Auto) [place] % (Auto) Eos % (Auto) Lymph # [place] # Eos # Seg Neutrophils % Seg Neuts % (Manual) Lymphocytes % (Manual) Monocytes % (Manual) Eosinophils % (Manual) Nucleated RBC % Seg Neutrophils # Seg Neutrophils # Man Lymphocytes # (Manual) Monocytes # (Manual) Eosinophils # (Manual) PT INR APTT Fibrinogen POC ABG pH ABG pH POC ABG pCO2 POC ABG pO2 ABG pO2 ABG HCO3 ABG O2 Saturation ABG Base Excess ABG Hemoglobin Oxyhemoglobin Sodium Potassium Chloride Carbon Dioxide BUN Creatinine Glucose POC Glucose 115 H 110 H 106 H Uric Acid Calcium Phosphorus Magnesium Iron TIBC AST ALT Total Creatine Kinase CK-MB (CK-2) Troponin T NT-Pro-B Natriuret Pep Total Protein Albumin Triglycerides HDL Cholesterol Folate Urine WBC (Auto) Urine Creatinine Urine Total Protein Vancomycin Trough 07/05/19 07/05/19 07/05/19 11:55 18:16 23:38 WBC RBC Hgb Hct MCV MCH MCHC RDW Plt Count Lymph % (Auto) [place] % (Auto) Eos % (Auto) Lymph # [place] # Eos # Seg Neutrophils % Seg Neuts % (Manual) Lymphocytes % (Manual) Monocytes % (Manual) Eosinophils % (Manual) Nucleated RBC % Seg Neutrophils # Seg Neutrophils # Man Lymphocytes # (Manual) Monocytes # (Manual) Eosinophils # (Manual) PT INR APTT Fibrinogen POC ABG pH ABG pH POC ABG pCO2 POC ABG pO2 ABG pO2 ABG HCO3 ABG O2 Saturation ABG Base Excess ABG Hemoglobin Oxyhemoglobin Sodium Potassium Chloride Carbon Dioxide BUN Creatinine Glucose POC Glucose 106 H 120 H 114 H Uric Acid Calcium Phosphorus Magnesium Iron TIBC AST ALT Total Creatine Kinase CK-MB (CK-2) Troponin T NT-Pro-B Natriuret Pep Total Protein Albumin Triglycerides HDL Cholesterol Folate Urine WBC (Auto) Urine Creatinine Urine Total Protein Vancomycin Trough 07/06/19 07/06/19 07/06/19 06:01 12:28 18:49 WBC RBC Hgb Hct MCV MCH MCHC RDW Plt Count Lymph % (Auto) [place] % (Auto) Eos % (Auto) Lymph # [place] # Eos # Seg Neutrophils % Seg Neuts % (Manual) Lymphocytes % (Manual) Monocytes % (Manual) Eosinophils % (Manual) Nucleated RBC % Seg Neutrophils # Seg Neutrophils # Man Lymphocytes # (Manual) Monocytes # (Manual) Eosinophils # (Manual) PT INR APTT Fibrinogen POC ABG pH ABG pH POC ABG pCO2 POC ABG pO2 ABG pO2 ABG HCO3 ABG O2 Saturation ABG Base Excess ABG Hemoglobin Oxyhemoglobin Sodium Potassium Chloride Carbon Dioxide BUN Creatinine Glucose POC Glucose 115 H 114 H 111 H Uric Acid Calcium Phosphorus Magnesium Iron TIBC AST ALT Total Creatine Kinase CK-MB (CK-2) Troponin T NT-Pro-B Natriuret Pep Total Protein Albumin Triglycerides HDL Cholesterol Folate Urine WBC (Auto) Urine Creatinine Urine Total Protein Vancomycin Trough 07/07/19 07/07/19 07/07/19 05:34 11:57 23:54 WBC RBC Hgb Hct MCV MCH MCHC RDW Plt Count Lymph % (Auto) [place] % (Auto) Eos % (Auto) Lymph # [place] # Eos # Seg Neutrophils % Seg Neuts % (Manual) Lymphocytes % (Manual) Monocytes % (Manual) Eosinophils % (Manual) Nucleated RBC % Seg Neutrophils # Seg Neutrophils # Man Lymphocytes # (Manual) Monocytes # (Manual) Eosinophils # (Manual) PT INR APTT Fibrinogen POC ABG pH ABG pH POC ABG pCO2 POC ABG pO2 ABG pO2 ABG HCO3 ABG O2 Saturation ABG Base Excess ABG Hemoglobin Oxyhemoglobin Sodium Potassium Chloride Carbon Dioxide BUN Creatinine Glucose POC Glucose 121 H 135 H 109 H Uric Acid Calcium Phosphorus Magnesium Iron TIBC AST ALT Total Creatine Kinase CK-MB (CK-2) Troponin T NT-Pro-B Natriuret Pep Total Protein Albumin Triglycerides HDL Cholesterol Folate Urine WBC (Auto) Urine Creatinine Urine Total Protein Vancomycin Trough 02/07/08/19 07/09/19 04:00 04:00 12:13 WBC RBC 3.30 L Hgb 9.3 L Hct 29.0 L MCV MCH MCHC RDW 19.9 H Plt Count Lymph % (Auto) [place] % (Auto) Eos % (Auto) Lymph # [place] # Eos # Seg Neutrophils % Seg Neuts % (Manual) 76.0 H Lymphocytes % (Manual) Monocytes % (Manual) Eosinophils % (Manual) Nucleated RBC % Seg Neutrophils # Seg Neutrophils # Man 8.4 H Lymphocytes # (Manual) Monocytes # (Manual) Eosinophils # (Manual) PT INR APTT Fibrinogen POC ABG pH ABG pH POC ABG pCO2 POC ABG pO2 ABG pO2 ABG HCO3 ABG O2 Saturation ABG Base Excess ABG Hemoglobin Oxyhemoglobin Sodium Potassium Chloride Carbon Dioxide BUN Creatinine 0.5 L Glucose 117 H POC Glucose 111 H Uric Acid Calcium Phosphorus Magnesium Iron TIBC AST ALT Total Creatine Kinase CK-MB (CK-2) Troponin T NT-Pro-B Natriuret Pep Total Protein Albumin Triglycerides HDL Cholesterol Folate Urine WBC (Auto) Urine Creatinine Urine Total Protein Vancomycin Trough 07/10/19 07/10/19 07/10/19 05:28 12:22 17:19 WBC RBC Hgb Hct MCV MCH MCHC RDW Plt Count Lymph % (Auto) [place] % (Auto) Eos % (Auto) Lymph # [place] # Eos # Seg Neutrophils % Seg Neuts % (Manual) Lymphocytes % (Manual) Monocytes % (Manual) Eosinophils % (Manual) Nucleated RBC % Seg Neutrophils # Seg Neutrophils # Man Lymphocytes # (Manual) Monocytes # (Manual) Eosinophils # (Manual) PT INR APTT Fibrinogen POC ABG pH ABG pH POC ABG pCO2 POC ABG pO2 ABG pO2 ABG HCO3 ABG O2 Saturation ABG Base Excess ABG Hemoglobin Oxyhemoglobin Sodium Potassium Chloride Carbon Dioxide BUN Creatinine Glucose POC Glucose 114 H 113 H 115 H Uric Acid Calcium Phosphorus Magnesium Iron TIBC AST ALT Total Creatine Kinase CK-MB (CK-2) Troponin T NT-Pro-B Natriuret Pep Total Protein Albumin Triglycerides HDL Cholesterol Folate Urine WBC (Auto) Urine Creatinine Urine Total Protein Vancomycin Trough 07/11/19 07/11/19 07/11/19 05:27 06:08 06:08 WBC 12.6 H RBC 3.26 L Hgb 9.2 L Hct 28.6 L MCV MCH MCHC RDW 19.6 H Plt Count Lymph % (Auto) [place] % (Auto) Eos % (Auto) Lymph # [place] # Eos # Seg Neutrophils % Seg Neuts % (Manual) Lymphocytes % (Manual) Monocytes % (Manual) Eosinophils % (Manual) Nucleated RBC % Seg Neutrophils # Seg Neutrophils # Man Lymphocytes # (Manual) Monocytes # (Manual) Eosinophils # (Manual) PT INR APTT Fibrinogen POC ABG pH ABG pH POC ABG pCO2 POC ABG pO2 ABG pO2 ABG HCO3 ABG O2 Saturation ABG Base Excess ABG Hemoglobin Oxyhemoglobin Sodium Potassium Chloride Carbon Dioxide 17 L D BUN Creatinine Glucose 117 H POC Glucose 114 H Uric Acid Calcium Phosphorus Magnesium Iron TIBC AST ALT Total Creatine Kinase CK-MB (CK-2) Troponin T NT-Pro-B Natriuret Pep Total Protein Albumin Triglycerides HDL Cholesterol Folate Urine WBC (Auto) Urine Creatinine Urine Total Protein Vancomycin Trough 07/12/19 07/13/19 07/13/19 18:33 03:55 03:55 WBC 11.4 H RBC 3.18 L Hgb 8.8 L Hct 27.4 L MCV MCH MCHC RDW 19.1 H Plt Count Lymph % (Auto) [place] % (Auto) Eos % (Auto) Lymph # [place] # Eos # Seg Neutrophils % Seg Neuts % (Manual) Lymphocytes % (Manual) Monocytes % (Manual) Eosinophils % (Manual) Nucleated RBC % Seg Neutrophils # Seg Neutrophils # Man Lymphocytes # (Manual) Monocytes # (Manual) Eosinophils # (Manual) PT INR APTT Fibrinogen POC ABG pH ABG pH POC ABG pCO2 POC ABG pO2 ABG pO2 ABG HCO3 ABG O2 Saturation ABG Base Excess ABG Hemoglobin Oxyhemoglobin Sodium Potassium Chloride 97.4 L Carbon Dioxide BUN Creatinine 0.5 L Glucose 121 H POC Glucose 106 H Uric Acid Calcium Phosphorus Magnesium Iron TIBC AST ALT Total Creatine Kinase CK-MB (CK-2) Troponin T NT-Pro-B Natriuret Pep Total Protein Albumin Triglycerides HDL Cholesterol Folate Urine WBC (Auto) Urine Creatinine Urine Total Protein Vancomycin Trough 07/13/19 07/13/19 07/14/19 05:08 11:52 11:50 WBC RBC Hgb Hct MCV MCH MCHC RDW Plt Count Lymph % (Auto) [place] % (Auto) Eos % (Auto) Lymph # [place] # Eos # Seg Neutrophils % Seg Neuts % (Manual) Lymphocytes % (Manual) Monocytes % (Manual) Eosinophils % (Manual) Nucleated RBC % Seg Neutrophils # Seg Neutrophils # Man Lymphocytes # (Manual) Monocytes # (Manual) Eosinophils # (Manual) PT INR APTT Fibrinogen POC ABG pH ABG pH POC ABG pCO2 POC ABG pO2 ABG pO2 ABG HCO3 ABG O2 Saturation ABG Base Excess ABG Hemoglobin Oxyhemoglobin Sodium Potassium Chloride Carbon Dioxide BUN Creatinine Glucose POC Glucose 107 H 120 H 125 H Uric Acid Calcium Phosphorus Magnesium Iron TIBC AST ALT Total Creatine Kinase CK-MB (CK-2) Troponin T NT-Pro-B Natriuret Pep Total Protein Albumin Triglycerides HDL Cholesterol Folate Urine WBC (Auto) Urine Creatinine Urine Total Protein Vancomycin Trough 07/14/19 07/15/19 07/15/19 15:52 00:21 05:50 WBC RBC Hgb Hct MCV MCH MCHC RDW Plt Count Lymph % (Auto) [place] % (Auto) Eos % (Auto) Lymph # [place] # Eos # Seg Neutrophils % Seg Neuts % (Manual) Lymphocytes % (Manual) Monocytes % (Manual) Eosinophils % (Manual) Nucleated RBC % Seg Neutrophils # Seg Neutrophils # Man Lymphocytes # (Manual) Monocytes # (Manual) Eosinophils # (Manual) PT INR APTT Fibrinogen POC ABG pH ABG pH POC ABG pCO2 POC ABG pO2 ABG pO2 ABG HCO3 ABG O2 Saturation ABG Base Excess ABG Hemoglobin Oxyhemoglobin Sodium Potassium Chloride Carbon Dioxide BUN Creatinine Glucose POC Glucose 118 H 108 H 123 H Uric Acid Calcium Phosphorus Magnesium Iron TIBC AST ALT Total Creatine Kinase CK-MB (CK-2) Troponin T NT-Pro-B Natriuret Pep Total Protein Albumin Triglycerides HDL Cholesterol Folate Urine WBC (Auto) Urine Creatinine Urine Total Protein Vancomycin Trough 07/15/19 07/15/19 07/15/19 11:38 16:33 17:36 WBC RBC Hgb Hct MCV MCH MCHC RDW Plt Count Lymph % (Auto) [place] % (Auto) Eos % (Auto) Lymph # [place] # Eos # Seg Neutrophils % Seg Neuts % (Manual) Lymphocytes % (Manual) Monocytes % (Manual) Eosinophils % (Manual) Nucleated RBC % Seg Neutrophils # Seg Neutrophils # Man Lymphocytes # (Manual) Monocytes # (Manual) Eosinophils # (Manual) PT INR APTT Fibrinogen POC ABG pH ABG pH POC ABG pCO2 POC ABG pO2 ABG pO2 ABG HCO3 ABG O2 Saturation ABG Base Excess ABG Hemoglobin Oxyhemoglobin Sodium Potassium Chloride Carbon Dioxide BUN Creatinine Glucose POC Glucose 114 H 115 H 132 H Uric Acid Calcium Phosphorus Magnesium Iron TIBC AST ALT Total Creatine Kinase CK-MB (CK-2) Troponin T NT-Pro-B Natriuret Pep Total Protein Albumin Triglycerides HDL Cholesterol Folate Urine WBC (Auto) Urine Creatinine Urine Total Protein Vancomycin Trough 07/16/19 07/16/19 07/17/19 12:33 18:57 11:53 WBC RBC Hgb Hct MCV MCH MCHC RDW Plt Count Lymph % (Auto) [place] % (Auto) Eos % (Auto) Lymph # [place] # Eos # Seg Neutrophils % Seg Neuts % (Manual) Lymphocytes % (Manual) Monocytes % (Manual) Eosinophils % (Manual) Nucleated RBC % Seg Neutrophils # Seg Neutrophils # Man Lymphocytes # (Manual) Monocytes # (Manual) Eosinophils # (Manual) PT INR APTT Fibrinogen POC ABG pH ABG pH POC ABG pCO2 POC ABG pO2 ABG pO2 ABG HCO3 ABG O2 Saturation ABG Base Excess ABG Hemoglobin Oxyhemoglobin Sodium Potassium Chloride Carbon Dioxide BUN Creatinine Glucose POC Glucose 113 H 65 L 113 H Uric Acid Calcium Phosphorus Magnesium Iron TIBC AST ALT Total Creatine Kinase CK-MB (CK-2) Troponin T NT-Pro-B Natriuret Pep Total Protein Albumin Triglycerides HDL Cholesterol Folate Urine WBC (Auto) Urine Creatinine Urine Total Protein Vancomycin Trough 07/17/19 07/18/19 07/18/19 17:42 06:24 17:03 WBC RBC Hgb Hct MCV MCH MCHC RDW Plt Count Lymph % (Auto) [place] % (Auto) Eos % (Auto) Lymph # [place] # Eos # Seg Neutrophils % Seg Neuts % (Manual) Lymphocytes % (Manual) Monocytes % (Manual) Eosinophils % (Manual) Nucleated RBC % Seg Neutrophils # Seg Neutrophils # Man Lymphocytes # (Manual) Monocytes # (Manual) Eosinophils # (Manual) PT INR APTT Fibrinogen POC ABG pH ABG pH POC ABG pCO2 POC ABG pO2 ABG pO2 ABG HCO3 ABG O2 Saturation ABG Base Excess ABG Hemoglobin Oxyhemoglobin Sodium Potassium Chloride Carbon Dioxide BUN Creatinine Glucose POC Glucose 111 H 107 H 117 H Uric Acid Calcium Phosphorus Magnesium Iron TIBC AST ALT Total Creatine Kinase CK-MB (CK-2) Troponin T NT-Pro-B Natriuret Pep Total Protein Albumin Triglycerides HDL Cholesterol Folate Urine WBC (Auto) Urine Creatinine Urine Total Protein Vancomycin Trough 07/19/19 07/20/19 07/20/19 12:24 04:33 04:33 WBC 12.3 H RBC Hgb 11.0 L Hct 33.9 L MCV MCH MCHC RDW 19.6 H Plt Count Lymph % (Auto) [place] % (Auto) Eos % (Auto) Lymph # [place] # Eos # Seg Neutrophils % 70.8 H Seg Neuts % (Manual) Lymphocytes % (Manual) Monocytes % (Manual) Eosinophils % (Manual) Nucleated RBC % Seg Neutrophils # 8.7 H Seg Neutrophils # Man Lymphocytes # (Manual) Monocytes # (Manual) Eosinophils # (Manual) PT INR APTT Fibrinogen POC ABG pH ABG pH POC ABG pCO2 POC ABG pO2 ABG pO2 ABG HCO3 ABG O2 Saturation ABG Base Excess ABG Hemoglobin Oxyhemoglobin Sodium Potassium Chloride Carbon Dioxide 20 L BUN Creatinine 0.5 L Glucose 116 H POC Glucose 110 H Uric Acid Calcium Phosphorus Magnesium Iron TIBC AST ALT Total Creatine Kinase CK-MB (CK-2) Troponin T NT-Pro-B Natriuret Pep Total Protein Albumin Triglycerides HDL Cholesterol Folate Urine WBC (Auto) Urine Creatinine Urine Total Protein Vancomycin Trough 07/20/19 07/20/19 07/21/19 12:17 23:49 05:34 WBC RBC Hgb Hct MCV MCH MCHC RDW Plt Count Lymph % (Auto) [place] % (Auto) Eos % (Auto) Lymph # [place] # Eos # Seg Neutrophils % Seg Neuts % (Manual) Lymphocytes % (Manual) Monocytes % (Manual) Eosinophils % (Manual) Nucleated RBC % Seg Neutrophils # Seg Neutrophils # Man Lymphocytes # (Manual) Monocytes # (Manual) Eosinophils # (Manual) PT INR APTT Fibrinogen POC ABG pH ABG pH POC ABG pCO2 POC ABG pO2 ABG pO2 ABG HCO3 ABG O2 Saturation ABG Base Excess ABG Hemoglobin Oxyhemoglobin Sodium Potassium Chloride Carbon Dioxide BUN Creatinine Glucose POC Glucose 117 H 108 H 116 H Uric Acid Calcium Phosphorus Magnesium Iron TIBC AST ALT Total Creatine Kinase CK-MB (CK-2) Troponin T NT-Pro-B Natriuret Pep Total Protein Albumin Triglycerides HDL Cholesterol Folate Urine WBC (Auto) Urine Creatinine Urine Total Protein Vancomycin Trough 07/23/19 07/23/19 07/23/19 05:28 05:28 06:25 WBC RBC 3.41 L Hgb 9.6 L Hct 29.7 L MCV MCH MCHC RDW 19.1 H Plt Count Lymph % (Auto) [place] % (Auto) Eos % (Auto) Lymph # [place] # Eos # Seg Neutrophils % Seg Neuts % (Manual) Lymphocytes % (Manual) Monocytes % (Manual) Eosinophils % (Manual) Nucleated RBC % Seg Neutrophils # Seg Neutrophils # Man Lymphocytes # (Manual) Monocytes # (Manual) Eosinophils # (Manual) PT INR APTT Fibrinogen POC ABG pH ABG pH POC ABG pCO2 POC ABG pO2 ABG pO2 ABG HCO3 ABG O2 Saturation ABG Base Excess ABG Hemoglobin Oxyhemoglobin Sodium Potassium Chloride Carbon Dioxide BUN 8 L Creatinine 0.5 L Glucose POC Glucose 135 H Uric Acid Calcium Phosphorus Magnesium Iron TIBC AST ALT Total Creatine Kinase CK-MB (CK-2) Troponin T NT-Pro-B Natriuret Pep Total Protein Albumin Triglycerides HDL Cholesterol Folate Urine WBC (Auto) Urine Creatinine Urine Total Protein Vancomycin Trough 07/23/19 07/23/19 07/24/19 14:26 16:25 00:45 WBC RBC Hgb Hct MCV MCH MCHC RDW Plt Count Lymph % (Auto) [place] % (Auto) Eos % (Auto) Lymph # [place] # Eos # Seg Neutrophils % Seg Neuts % (Manual) Lymphocytes % (Manual) Monocytes % (Manual) Eosinophils % (Manual) Nucleated RBC % Seg Neutrophils # Seg Neutrophils # Man Lymphocytes # (Manual) Monocytes # (Manual) Eosinophils # (Manual) PT INR APTT Fibrinogen POC ABG pH ABG pH POC ABG pCO2 POC ABG pO2 ABG pO2 ABG HCO3 ABG O2 Saturation ABG Base Excess ABG Hemoglobin Oxyhemoglobin Sodium Potassium Chloride Carbon Dioxide BUN Creatinine Glucose POC Glucose 121 H 115 H 125 H Uric Acid Calcium Phosphorus Magnesium Iron TIBC AST ALT Total Creatine Kinase CK-MB (CK-2) Troponin T NT-Pro-B Natriuret Pep Total Protein Albumin Triglycerides HDL Cholesterol Folate Urine WBC (Auto) Urine Creatinine Urine Total Protein Vancomycin Trough 07/24/19 07/25/19 07/25/19 11:33 08:32 11:54 WBC RBC Hgb Hct MCV MCH MCHC RDW Plt Count Lymph % (Auto) [place] % (Auto) Eos % (Auto) Lymph # [place] # Eos # Seg Neutrophils % Seg Neuts % (Manual) Lymphocytes % (Manual) Monocytes % (Manual) Eosinophils % (Manual) Nucleated RBC % Seg Neutrophils # Seg Neutrophils # Man Lymphocytes # (Manual) Monocytes # (Manual) Eosinophils # (Manual) PT INR APTT Fibrinogen POC ABG pH ABG pH POC ABG pCO2 POC ABG pO2 ABG pO2 ABG HCO3 ABG O2 Saturation ABG Base Excess ABG Hemoglobin Oxyhemoglobin Sodium Potassium Chloride Carbon Dioxide BUN Creatinine Glucose POC Glucose 130 H 110 H 136 H Uric Acid Calcium Phosphorus Magnesium Iron TIBC AST ALT Total Creatine Kinase CK-MB (CK-2) Troponin T NT-Pro-B Natriuret Pep Total Protein Albumin Triglycerides HDL Cholesterol Folate Urine WBC (Auto) Urine Creatinine Urine Total Protein Vancomycin Trough 07/25/19 07/26/19 07/26/19 18:10 05:53 12:17 WBC RBC Hgb Hct MCV MCH MCHC RDW Plt Count Lymph % (Auto) [place] % (Auto) Eos % (Auto) Lymph # [place] # Eos # Seg Neutrophils % Seg Neuts % (Manual) Lymphocytes % (Manual) Monocytes % (Manual) Eosinophils % (Manual) Nucleated RBC % Seg Neutrophils # Seg Neutrophils # Man Lymphocytes # (Manual) Monocytes # (Manual) Eosinophils # (Manual) PT INR APTT Fibrinogen POC ABG pH ABG pH POC ABG pCO2 POC ABG pO2 ABG pO2 ABG HCO3 ABG O2 Saturation ABG Base Excess ABG Hemoglobin Oxyhemoglobin Sodium Potassium Chloride Carbon Dioxide BUN Creatinine Glucose POC Glucose 117 H 107 H 140 H Uric Acid Calcium Phosphorus Magnesium Iron TIBC AST ALT Total Creatine Kinase CK-MB (CK-2) Troponin T NT-Pro-B Natriuret Pep Total Protein Albumin Triglycerides HDL Cholesterol Folate Urine WBC (Auto) Urine Creatinine Urine Total Protein Vancomycin Trough 07/26/19 07/27/19 07/27/19 16:59 00:33 08:00 WBC 12.0 H RBC 3.35 L Hgb 9.4 L Hct 29.3 L MCV MCH MCHC RDW 18.2 H Plt Count Lymph % (Auto) [place] % (Auto) Eos % (Auto) Lymph # [place] # Eos # Seg Neutrophils % Seg Neuts % (Manual) Lymphocytes % (Manual) Monocytes % (Manual) Eosinophils % (Manual) Nucleated RBC % Seg Neutrophils # Seg Neutrophils # Man Lymphocytes # (Manual) Monocytes # (Manual) Eosinophils # (Manual) PT INR APTT Fibrinogen POC ABG pH ABG pH POC ABG pCO2 POC ABG pO2 ABG pO2 ABG HCO3 ABG O2 Saturation ABG Base Excess ABG Hemoglobin Oxyhemoglobin Sodium Potassium Chloride Carbon Dioxide BUN Creatinine Glucose POC Glucose 129 H 110 H Uric Acid Calcium Phosphorus Magnesium Iron TIBC AST ALT Total Creatine Kinase CK-MB (CK-2) Troponin T NT-Pro-B Natriuret Pep Total Protein Albumin Triglycerides HDL Cholesterol Folate Urine WBC (Auto) Urine Creatinine Urine Total Protein Vancomycin Trough 07/27/19 07/27/19 07/28/19 08:00 16:38 12:06 WBC RBC Hgb Hct MCV MCH MCHC RDW Plt Count Lymph % (Auto) [place] % (Auto) Eos % (Auto) Lymph # [place] # Eos # Seg Neutrophils % Seg Neuts % (Manual) Lymphocytes % (Manual) Monocytes % (Manual) Eosinophils % (Manual) Nucleated RBC % Seg Neutrophils # Seg Neutrophils # Man Lymphocytes # (Manual) Monocytes # (Manual) Eosinophils # (Manual) PT INR APTT Fibrinogen POC ABG pH ABG pH POC ABG pCO2 POC ABG pO2 ABG pO2 ABG HCO3 ABG O2 Saturation ABG Base Excess ABG Hemoglobin Oxyhemoglobin Sodium Potassium Chloride 97.7 L Carbon Dioxide BUN Creatinine 0.5 L Glucose 117 H POC Glucose 116 H 122 H Uric Acid Calcium Phosphorus Magnesium Iron TIBC AST ALT Total Creatine Kinase CK-MB (CK-2) Troponin T NT-Pro-B Natriuret Pep Total Protein Albumin Triglycerides HDL Cholesterol Folate Urine WBC (Auto) Urine Creatinine Urine Total Protein Vancomycin Trough 07/28/19 07/29/19 07/29/19 17:10 00:17 06:46 WBC RBC Hgb Hct MCV MCH MCHC RDW Plt Count Lymph % (Auto) [place] % (Auto) Eos % (Auto) Lymph # [place] # Eos # Seg Neutrophils % Seg Neuts % (Manual) Lymphocytes % (Manual) Monocytes % (Manual) Eosinophils % (Manual) Nucleated RBC % Seg Neutrophils # Seg Neutrophils # Man Lymphocytes # (Manual) Monocytes # (Manual) Eosinophils # (Manual) PT INR APTT Fibrinogen POC ABG pH ABG pH POC ABG pCO2 POC ABG pO2 ABG pO2 ABG HCO3 ABG O2 Saturation ABG Base Excess ABG Hemoglobin Oxyhemoglobin Sodium Potassium Chloride Carbon Dioxide BUN Creatinine Glucose POC Glucose 109 H 110 H 112 H Uric Acid Calcium Phosphorus Magnesium Iron TIBC AST ALT Total Creatine Kinase CK-MB (CK-2) Troponin T NT-Pro-B Natriuret Pep Total Protein Albumin Triglycerides HDL Cholesterol Folate Urine WBC (Auto) Urine Creatinine Urine Total Protein Vancomycin Trough 07/29/19 07/29/19 07/29/19 08:50 18:15 23:47 WBC RBC Hgb Hct MCV MCH MCHC RDW Plt Count Lymph % (Auto) [place] % (Auto) Eos % (Auto) Lymph # [place] # Eos # Seg Neutrophils % Seg Neuts % (Manual) Lymphocytes % (Manual) Monocytes % (Manual) Eosinophils % (Manual) Nucleated RBC % Seg Neutrophils # Seg Neutrophils # Man Lymphocytes # (Manual) Monocytes # (Manual) Eosinophils # (Manual) PT INR APTT Fibrinogen POC ABG pH ABG pH POC ABG pCO2 POC ABG pO2 ABG pO2 ABG HCO3 ABG O2 Saturation ABG Base Excess ABG Hemoglobin Oxyhemoglobin Sodium Potassium Chloride Carbon Dioxide BUN Creatinine Glucose POC Glucose 111 H 131 H 123 H Uric Acid Calcium Phosphorus Magnesium Iron TIBC AST ALT Total Creatine Kinase CK-MB (CK-2) Troponin T NT-Pro-B Natriuret Pep Total Protein Albumin Triglycerides HDL Cholesterol Folate Urine WBC (Auto) Urine Creatinine Urine Total Protein Vancomycin Trough 07/30/19 05:48 WBC RBC Hgb Hct MCV MCH MCHC RDW Plt Count Lymph % (Auto) [place] % (Auto) Eos % (Auto) Lymph # [place] # Eos # Seg Neutrophils % Seg Neuts % (Manual) Lymphocytes % (Manual) Monocytes % (Manual) Eosinophils % (Manual) Nucleated RBC % Seg Neutrophils # Seg Neutrophils # Man Lymphocytes # (Manual) Monocytes # (Manual) Eosinophils # (Manual) PT INR APTT Fibrinogen POC ABG pH ABG pH POC ABG pCO2 POC ABG pO2 ABG pO2 ABG HCO3 ABG O2 Saturation ABG Base Excess ABG Hemoglobin Oxyhemoglobin Sodium Potassium Chloride Carbon Dioxide BUN Creatinine Glucose POC Glucose 107 H Uric Acid Calcium Phosphorus Magnesium Iron TIBC AST ALT Total Creatine Kinase CK-MB (CK-2) Troponin T NT-Pro-B Natriuret Pep Total Protein Albumin Triglycerides HDL Cholesterol Folate Urine WBC (Auto) Urine Creatinine Urine Total Protein Vancomycin Trough
[2019-07-30] MEDS: SCOPOLAMINE TRANSDERMAL PATCH 72 HR TD SCH (09:59)
[2019-07-30] MEDS: amLODIPine 10 MG TAB PO SCH (10:00)
[2019-07-30] MEDS: FAMOTIDINE 20 MG TAB PO SCH ×2 (10:00→22:31)
[2019-07-30] MEDS: FERROUS SULFATE 308 MG (62mg Elemental Iron) / 7 ML ELIXIR PO SCH (10:00)
[2019-07-30] MEDS: MULTIVITAMINS 5 ML ORAL LIQUID PO SCH (10:00)
[2019-07-30] MEDS: hydroCHLOROthiazide 25 MG TAB PO SCH (10:01)
[2019-07-30] MEDS: APIXABAN 2.5 MG TAB PO SCH ×2 (10:01→22:31)
--- NOTE | 2019-07-30 14:11 | Progress Note ---
Assessment and Plan Assessment and plan: Acute respiratory failure; tracheostomy dependent cont trach care, scheduled nebulizers Pulmonary following Obesity hypoventilation syndrome titrate O2 sats to more than 90% Status post cardiac arrest mild anoxic brain injury EEG was negative for seizures and neurology evaluated Oral pharyngeal dysphagia continue tube feeds Anemia of chronic disease Closely monitor H&H and transfuse as needed. 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 Now Patient is on Eliquis Acute kidney injury due to ATN Initially requiring dialysis Resolved, nephrology following. Hypernatremia/Hypokalemia/ hypomagnesemia Resolved Morbid obesity will need weight loss program upon discharge DVT prophylaxis scd /Eliquis Physical therapy/occupational therapy when patient is stable 3/3-patient still has intermittent episodes of agitation and requires a food safety scientist. I discussed with case worker discharge planning and continue discussions with family. 3/4patient with agitation last evening and this morning requiring soft wrist restraints. Continue trach care, secretion control and airway management. Tracheostomy is indefinite. Family preparation for trach management. 3/6patient still with agitation which remains a problem. Case management still actively working on discharge planning History Interval history: No new issues overnight. Hospitalist Physical - Constitutional Vitals: Temp Pulse Resp BP Pulse Ox 98.6 F 100 H 18 119/54 95 07/30/19 11:52 07/30/19 12:00 07/30/19 11:52 07/30/19 11:52 07/30/19 11:52 General appearance: Present: no acute distress, obese - EENT Eyes: Present: PERRL, EOM intact ENT: hearing intact, clear oral mucosa, dentition normal - Neck Neck: Present: supple, normal ROM - Respiratory Respiratory effort: normal Respiratory: bilateral: CTA - Cardiovascular Rhythm: regular Heart Sounds: Present: S1 & S2. Absent: gallop, rub - Extremities Extremities: no ischemia, No edema, Full ROM - Abdominal General gastrointestinal: soft, non-tender, non-distended, normal bowel sounds - Integumentary Integumentary: Present: clear, warm, dry - Neurologic Neurologic: CNII-XII intact, moves all extremities Results - Labs CBC & Chem 7: 07/27/19 08:00 07/27/19 08:00 Labs: Laboratory Last Values WBC 12.0 K/mm3 (4.5-11.0) H 07/27/19 08:00 RBC 3.35 M/mm3 (3.65-5.03) L 07/27/19 08:00 Hgb 9.4 gm/dl (11.8-15.2) L 07/27/19 08:00 Hct 29.3 % (35.5-45.6) L 07/27/19 08:00 MCV 88 fl (84-94) 07/27/19 08:00 MCH 28 pg (28-32) 07/27/19 08:00 MCHC 32 % (32-34) 07/27/19 08:00 RDW 18.2 % (13.2-15.2) H 07/27/19 08:00 Plt Count 341 K/mm3 (140-440) 07/27/19 08:00 Lymph % (Auto) 19.2 % (13.4-35.0) 07/20/19 04:33 [place] % (Auto) 6.1 % (0.0-7.3) 07/20/19 04:33 Eos % (Auto) 2.8 % (0.0-4.3) 07/20/19 04:33 Baso % (Auto) 1.1 % (0.0-1.8) 07/20/19 04:33 Lymph # 2.4 K/mm3 (1.2-5.4) 07/20/19 04:33 [place] # 0.8 K/mm3 (0.0-0.8) 07/20/19 04:33 Eos # 0.3 K/mm3 (0.0-0.4) 07/20/19 04:33 Baso # 0.1 K/mm3 (0.0-0.1) 07/20/19 04:33 Add Manual Diff Complete 07/08/19 04:00 Total Counted 100 07/08/19 04:00 Seg Neutrophils % 70.8 % (40.0-70.0) H 07/20/19 04:33 Seg Neuts % (Manual) 76.0 % (40.0-70.0) H 07/08/19 04:00 Band Neutrophils % 0 % 07/08/19 04:00 Lymphocytes % (Manual) 16.0 % (13.4-35.0) 07/08/19 04:00 Reactive Lymphs % (Man) 0 % 07/08/19 04:00 Monocytes % (Manual) 6.0 % (0.0-7.3) 07/08/19 04:00 Eosinophils % (Manual) 2.0 % (0.0-4.3) 07/08/19 04:00 Basophils % (Manual) 0 % (0.0-1.8) 07/08/19 04:00 Metamyelocytes % 0 % 07/08/19 04:00 Myelocytes % 0 % 07/08/19 04:00 Promyelocytes % 0 % 07/08/19 04:00 Blast Cells % 0 % 07/08/19 04:00 Nucleated RBC % Not Reportable 07/08/19 04:00 Seg Neutrophils # 8.7 K/mm3 (1.8-7.7) H 07/20/19 04:33 Seg Neutrophils # Man 8.4 K/mm3 (1.8-7.7) H 07/08/19 04:00 Band Neutrophils # 0.0 K/mm3 07/08/19 04:00 Lymphocytes # (Manual) 1.8 K/mm3 (1.2-5.4) 07/08/19 04:00 Abs React Lymphs (Man) 0.0 K/mm3 07/08/19 04:00 Monocytes # (Manual) 0.7 K/mm3 (0.0-0.8) 07/08/19 04:00 Eosinophils # (Manual) 0.2 K/mm3 (0.0-0.4) 07/08/19 04:00 Basophils # (Manual) 0.0 K/mm3 (0.0-0.1) 07/08/19 04:00 Metamyelocytes # 0.0 K/mm3 07/08/19 04:00 Myelocytes # 0.0 K/mm3 07/08/19 04:00 Promyelocytes # 0.0 K/mm3 07/08/19 04:00 Blast Cells # 0.0 K/mm3 07/08/19 04:00 WBC Morphology Not Reportable 07/08/19 04:00 Hypersegmented Neuts Not Reportable 07/08/19 04:00 Hyposegmented Neuts Not Reportable 07/08/19 04:00 Hypogranular Neuts Not Reportable 07/08/19 04:00 Smudge Cells Not Reportable 07/08/19 04:00 Toxic Granulation Not Reportable 07/08/19 04:00 Toxic Vacuolation Not Reportable 07/08/19 04:00 Dohle Bodies Not Reportable 07/08/19 04:00 Pel[place]-Huet Anomaly Not Reportable 07/08/19 04:00 Renea Rods Not Reportable 07/08/19 04:00 Platelet Estimate Consistent w auto 07/08/19 04:00 Clumped Platelets Not Reportable 07/08/19 04:00 Plt Clumps, EDTA Not Reportable 07/08/19 04:00 Large Platelets Not Reportable 07/08/19 04:00 Giant Platelets Not Reportable 07/08/19 04:00 Platelet Satelliting Not Reportable 07/08/19 04:00 Plt Morphology Comment Not Reportable 07/08/19 04:00 RBC Morphology Not Reportable 07/08/19 04:00 Dimorphic RBCs Not Reportable 07/08/19 04:00 Polychromasia Not Reportable 07/08/19 04:00 Hypochromasia Not Reportable 07/08/19 04:00 Poikilocytosis Not Reportable 07/08/19 04:00 Anisocytosis 1+ 07/08/19 04:00 Microcytosis Not Reportable 07/08/19 04:00 Macrocytosis Not Reportable 07/08/19 04:00 Spherocytes Not Reportable 07/08/19 04:00 Pappenheimer Bodies Not Reportable 07/08/19 04:00 Sickle Cells Not Reportable 07/08/19 04:00 Target Cells Not Reportable 07/08/19 04:00 Tear Drop Cells Not Reportable 07/08/19 04:00 Ovalocytes Not Reportable 07/08/19 04:00 Stomatocytes 3+ 06/23/19 05:24 Helmet Cells Not Reportable 07/08/19 04:00 [place] Bodies Not Reportable 07/08/19 04:00 [place] Rings Not Reportable 07/08/19 04:00 [place] Cells Not Reportable 07/08/19 04:00 Bite Cells Not Reportable 07/08/19 04:00 Crenated Cell Not Reportable 07/08/19 04:00 Elliptocytes Not Reportable 07/08/19 04:00 Acanthocytes (Spur) Not Reportable 07/08/19 04:00 Rouleaux Not Reportable 07/08/19 04:00 Hemoglobin C Crystals Not Reportable 07/08/19 04:00 Schistocytes Not Reportable 07/08/19 04:00 Malaria parasites Not Reportable 07/08/19 04:00 [place] Bodies Not Reportable 07/08/19 04:00 Hem Pathologist Commnt No 07/08/19 04:00 PT 15.4 Sec. (12.2-14.9) H 05/01/19 Unknown INR 1.23 (0.87-1.13) H 05/01/19 Unknown APTT 22.7 Sec. (24.2-36.6) L 05/01/19 Unknown Fibrinogen 194 mg/dl (211-480) L 06/17/19 12:45 Heparin Anti-Xa, Unfract Negative (Negative) 06/17/19 12:45 POC ABG pH 7.462 (7.35-7.45) H 06/05/19 03:52 ABG pH 7.469 pH Units (7.350-7.450) H 06/23/19 02:00 POC ABG pCO2 39.8 (35-45) 06/05/19 03:52 ABG pCO2 39.4 mm Hg 06/23/19 02:00 POC ABG pO2 86 (80-105) 06/05/19 03:52 ABG pO2 58.7 mm Hg (80.0-90.0) L 06/23/19 02:00 POC ABG HCO3 28.4 (22-26 mml/L) 06/05/19 03:52 ABG HCO3 28.0 mmol/L (20.0-26.0) H 06/23/19 02:00 POC ABG Total CO2 30 (23-27mmol/L) 06/05/19 03:52 POC ABG O2 Sat 97 06/05/19 03:52 ABG O2 Saturation 94.6 % (95.0-99.0) L 06/23/19 02:00 ABG O2 Content 9.2 (0.0-44) 06/23/19 02:00 POC ABG Base Excess 5 ((-2) - (+3)mmol/L) 06/05/19 03:52 ABG Base Excess 4.0 mmol/L (-2.0-3.0) H 06/23/19 02:00 ABG Hemoglobin 7.1 gm/dl (14.0-18.0) L 06/23/19 02:00 ABG Carboxyhemoglobin 2.0 % (0.0-5.0) 06/23/19 02:00 ABG Methemoglobin 0.5 % (0.0-1.5) 06/23/19 02:00 Oxyhemoglobin 92.2 % (95.0-99.0) L 06/23/19 02:00 FiO2 30 % 06/23/19 02:00 Sodium 140 mmol/L (137-145) 07/27/19 08:00 Potassium 4.1 mmol/L (3.6-5.0) 07/27/19 08:00 Chloride 97.7 mmol/L (98-107) L 07/27/19 08:00 Carbon Dioxide 24 mmol/L (22-30) 07/27/19 08:00 Anion Gap 22 mmol/L 07/27/19 08:00 BUN 9 mg/dL (9-20) 07/27/19 08:00 Creatinine 0.5 mg/dL (0.8-1.5) L 07/27/19 08:00 Estimated GFR > 60 ml/min 07/27/19 08:00 BUN/Creatinine Ratio 18 % 07/27/19 08:00 Glucose 117 mg/dL (75-100) H 07/27/19 08:00 POC Glucose 107 (70-105) H 07/30/19 05:48 Osmolality 327 Mosm/kg 05/07/19 13:45 Uric Acid 18.0 mg/dL (3.5-7.6) H 05/07/19 13:45 Calcium 9.5 mg/dL (8.4-10.2) 07/27/19 08:00 Phosphorus 3.70 mg/dL (2.5-4.5) 06/10/19 05:45 Magnesium 1.60 mg/dL (1.7-2.3) L 06/26/19 04:43 Iron 45 ug/dL (49-181) L 06/20/19 09:12 TIBC 110 mcg/dL (250-450) L 06/20/19 09:12 Ferritin 315.2 ng/mL (13.0-400.0) 06/20/19 09:12 Total Bilirubin 0.50 mg/dL (0.1-1.2) 06/08/19 04:20 AST 23 units/L (5-40) 06/08/19 04:20 ALT 66 units/L (7-56) H 06/08/19 04:20 Alkaline Phosphatase 59 units/L (35-129) 06/08/19 04:20 Total Creatine Kinase 131 units/L (55-170) 05/02/19 04:41 CK-MB (CK-2) 5.2 ng/mL (0.0-4.0) H 05/02/19 04:41 CK-MB (CK-2) Rel Index 3.9 (0-4) 05/02/19 04:41 Troponin T 0.067 ng/mL (0.00-0.029) H D 05/02/19 04:41 NT-Pro-B Natriuret Pep 6831 pg/mL (0-450) H 05/01/19 Unknown Total Protein 5.5 g/dL (6.3-8.2) L 06/08/19 04:20 Albumin 2.9 g/dL (3.9-5) L 06/08/19 04:20 Albumin/Globulin Ratio 1.1 % 06/08/19 04:20 Triglycerides 210 mg/dL (2-149) H 06/19/19 04:30 Cholesterol 173 mg/dL (50-199) 05/02/19 00:06 LDL Cholesterol Direct 126 mg/dL (50-130) 05/02/19 00:06 HDL Cholesterol 18 mg/dL (40-59) L 05/02/19 00:06 Cholesterol/HDL Ratio 9.61 % 05/02/19 00:06 Serotonin Release Assay See scanned results 06/17/19 12:45 Vitamin B12 353.0 pg/mL (211-911) 06/20/19 09:12 Folate 7.01 ng/mL (7.3-26.0) L 06/20/19 09:12 Procalcitonin 0.05 ng/mL (<0.15) 06/17/19 12:45 Urine Color Yellow (Yellow) 06/17/19 12:45 Urine Turbidity Slightly-cloudy (Clear) 06/17/19 12:45 Urine pH 5.0 (5.0-7.0) 01/23/20 12:45 Ur Specific [place] 1.013 (1.003-1.030) 06/17/19 12:45 Urine Protein <15 mg/dl mg/dL (Negative) 06/17/19 12:45 Urine Glucose (UA) Neg mg/dL (Negative) 06/17/19 12:45 Urine Ketones Neg mg/dL (Negative) 06/17/19 12:45 Urine Blood Sm (Negative) 06/17/19 12:45 Urine Nitrite Neg (Negative) 06/17/19 12:45 Urine Bilirubin Neg (Negative) 06/17/19 12:45 Urine Urobilinogen < 2.0 mg/dL (<2.0) 06/17/19 12:45 Ur Leukocyte Esterase Neg (Negative) 06/17/19 12:45 Urine WBC (Auto) 2.0 /HPF (0.0-6.0) 06/17/19 12:45 Urine RBC (Auto) 2.0 /HPF (0.0-6.0) 06/17/19 12:45 U Epithel Cells (Auto) < 1.0 /HPF (0-13.0) 06/17/19 12:45 Urine Bacteria (Auto) 1+ /HPF (Negative) 05/20/19 12:00 Uric Acid Crystals 3+ 05/03/19 10:55 Urine Mucus Few /HPF 06/17/19 12:45 Urine Yeast (Budding) 3+ /HPF 05/20/19 12:00 Urine Creatinine 292.8 mg/dL (0.1-20.0) H 05/07/19 22:40 Urine Sodium 11 mmol/L 05/07/19 22:40 Urine Total Protein 269 mg/dL (5-11.8) H 05/07/19 22:40 Vancomycin Trough 20.5 ug/mL (5.0-20.0) H 05/15/19 09:00 Random Vancomycin 11.5 ug/mL (0-40.0) 05/27/19 06:00 AMNA Screen Negative (Negative) 05/07/19 13:45 Heparin-induced Plt Ab Negative (Negative) 06/17/19 12:45 UF Heparin High Dose 13 % Release 06/17/19 12:45 YUNG UFH Low Dose 0.1 8 % Release 01/23/20 12:45 YUNG UFH Low Dose 0.5 7 % Release 06/17/19 12:45 Hepatitis A IgM Ab Non-reactive (NonReactive) 05/07/19 13:45 Hep Bs Antigen Non-reactive (Negative) 05/07/19 13:45 Hep B Core IgM Ab Non-reactive (NonReactive) 05/07/19 13:45 Hepatitis C Antibody Non-reactive (NonReactive) 05/07/19 13:45 Influenza A (Rapid) Negative (Negative) 06/17/19 11:35 Influenza B (Rapid) Negative (Negative) 06/17/19 11:35 Active Medications - Current Medications Current Medications: Generic Name Dose Route Start Last Admin Trade Name Freq PRN Reason Stop Dose Admin Acetaminophen 650 mg 07/02/19 23:56 07/28/19 21:16 Tylenol PO 650 mg Q4H PRN Administration Pain, Mild (1-3) Amlodipine Besylate 10 mg 07/25/19 10:00 07/30/19 10:00 Amlodipine PO 10 mg DAILY VICKEY Administration Lipase/Protease/Amylase 1 each 07/15/19 12:[address] 10,500 Unit FEEDTUBE PRN PRN For Clogged Feeding Tube Apixaban 2.5 mg 06/23/19 22:00 07/30/19 10:01 Eliquis PO 2.5 mg Q12HR VICKEY Administration Protocol Dextrose 50 gm 05/01/19 20:24 D50w (25gm) Vial IV Q30MIN PRN Hypoglycemia Protocol Famotidine 20 mg 06/17/19 10:00 07/30/19 10:00 Pepcid PO 20 mg BID VICKEY Administration Ferrous Sulfate 308 mg 06/18/19 12:00 07/30/19 10:00 Ferrous Sulfate PO 308 mg QDAY VICKEY Administration Hydrochlorothiazide 25 mg 06/26/19 11:00 07/30/19 10:01 Hctz PO 25 mg QDAY VICKEY Administration Insulin Human Lispro 0 unit 06/01/19 14:00 07/30/19 09:58 Humalog SUB-Q Not Given Q6HR VICKEY Protocol Labetalol HCl 200 mg 06/28/19 10:00 07/30/19 06:10 Labetalol PO 200 mg Q8HR VICKEY Administration Lorazepam 1 mg 07/29/19 18:38 Ativan PO Q8H PRN Agitation Multi-Ingred Cream/Lotion/Oil/Oint 1 applic 06/16/19 18:00 Artificial Tears Ophth Oint OU Q4HR PRN Dry Eye(s) Multivitamins 5 ml 06/29/19 12:00 07/30/19 10:00 Centrum Liq PO 5 ml QDAY VICKEY Administration Ondansetron HCl 4 mg 07/22/19 16:14 Zofran IV Q8H PRN Nausea And Vomiting Scopolamine 1 each 06/27/19 09:00 07/30/19 09:59 Transderm-Scop TD 1 each Q3D VICKEY Administration Simple Syrup 15 ml 07/15/19 12:26 Simple Syrup FEEDTUBE PRN PRN Hypoglycemia Simple Syrup 30 ml 07/15/19 12:26 Simple Syrup FEEDTUBE PRN PRN Hypoglycemia Sodium Bicarbonate 325 mg 07/15/19 12:26 Sodium Bicarbonate FEEDTUBE PRN PRN For Clogged Feeding Tube Nutrition/Malnutrition Assess - Dietary Evaluation Nutrition/Malnutrition Findings: Nutrition Notes Start: 05/04/19 12:54 Freq: Status: Active Protocol: Document 07/30/19 13:20 KS (Rec: 07/30/19 13:26 KS [id number]) Co-Sign 07/30/19 13:20 LM Nutrition Notes Initial or Follow up Reassessment Current Diagnosis Acute Kidney Injury,Sepsis, Respiratory Failure Current Diet Osmolite 1.5 at 60 ml/hr Labs/Tests POC Glu 107 Pertinent Medications Reviewed Height 6 ft 4 in Weight 183.2 kg [place] Body Weight (kg) 91.81 BMI 49.1 Weight change and time frame wt change noted Weight Status Morbidly Obese Subjective/Other Information Osmolite observed running at 60mL/hr at time of visit. Pt tolerating TF. Burn Absent Trauma Absent GI Symptoms None Current % PO Negligible Minimum of two criteria No Fluid Accumulation Moderate to Severe (severe) #1 Nutrition Diagnosis Inadequate oral intake Diagnosis Progress(for reassessment Continues documentation) Is patient on ventilator? Yes Is Patient Ambulatory and/or Out of Bed No REE-([facility]-confined to bed) 3455.172 Kcal/Kg value to use for calculation 11 Approximate Energy Requirements Using 2015 kcal/Kg Calculation Used for Recommendations Kcal/kg Additional Notes PRO needs: 73-91g (0.8-1 g/kg IBW 91kg CARLA resolved) Fluid needs: 1 ml/kcal Nutrition Intervention Change Diet Order: Continue TF Nutrition Support: Osmolite at 60 ml/hr Flush 200 ml q4h Kcal 2,160 Protein (gm) 90 Fluid (mL) 1,097 Goal #1 TF tolerance Goal #2 Meet at least 80% of PRO/kcal needs via TF Anticipated Discharge Needs: Bolus Jevity 1.2 7 cans/day 2 cans for breakfast 2 cans for lunch 1 can scack 2 cans dinner Flush 100 ml before and after each bolus (breakfast, lunch, snack, and dinner) Follow-Up By: 08/02/19 Additional Comments F/U for TF/POC
[2019-07-31] MEDS: INSULIN LISPRO 100 UNIT/ML SUB-Q SCH ×3 (01:18→13:00)
[2019-07-31] MEDS: LORazepam 1 MG TAB PO PRN ×2 (01:55→09:08)
--- NOTE | 2019-07-31 04:48 | XRay Report ---
SOFT TISSUE NECK, SINGLE VIEW INDICATION / CLINICAL INFORMATION: TO CHECK TRACHEOSTOMY PLACEMENT.. COMPARISON: None available. FINDINGS: The radiograph obtained is a crosstable lateral. Unfortunately, the patient's shoulders obscure visua lization of the tracheostomy tube. Signer Name: Mari Chase MD Signed: 07/31/2019 4:43 AM Workstation Name: [id number]
[2019-07-31] MEDS: amLODIPine 10 MG TAB PO SCH (09:08)
[2019-07-31] MEDS: hydroCHLOROthiazide 25 MG TAB PO SCH (09:08)
[2019-07-31] MEDS: APIXABAN 2.5 MG TAB PO SCH ×2 (09:08→23:52)
[2019-07-31] MEDS: FAMOTIDINE 20 MG TAB PO SCH ×2 (09:08→23:57)
[2019-07-31] MEDS: FERROUS SULFATE 308 MG (62mg Elemental Iron) / 7 ML ELIXIR PO SCH (10:21)
[2019-07-31] MEDS: MULTIVITAMINS 5 ML ORAL LIQUID PO SCH (10:21)
--- NOTE | 2019-07-31 12:12 | Progress Note ---
Assessment and Plan Assessment and plan: Acute respiratory failure; tracheostomy dependent cont trach care, scheduled nebulizers Pulmonary following Obesity hypoventilation syndrome titrate O2 sats to more than 90% Status post cardiac arrest mild anoxic brain injury EEG was negative for seizures and neurology evaluated Oral pharyngeal dysphagia continue tube feeds Anemia of chronic disease Closely monitor H&H and transfuse as needed. 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 Now Patient is on Eliquis Acute kidney injury due to ATN Initially requiring dialysis Resolved, nephrology following. Hypernatremia/Hypokalemia/ hypomagnesemia Resolved Morbid obesity will need weight loss program upon discharge DVT prophylaxis scd /Eliquis Physical therapy/occupational therapy when patient is stable 3/3-patient still has intermittent episodes of agitation and requires a health and safety technician. I discussed with returned case inspector discharge planning and continue discussions with family. 3/4patient with agitation last evening and this morning requiring soft wrist restraints. Continue trach care, secretion control and airway management. Tracheostomy is indefinite. Family preparation for trach management. 3/patient still with agitation which remains a problem. Case management still actively working on discharge planning 3patient still with agitation. Case management working on discharge planning. History Interval history: No new issues overnight. Hospitalist Physical - Constitutional Vitals: Temp Pulse Resp BP Pulse Ox 98.7 F 96 H 20 128/68 96 07/31/19 05:11 07/31/19 09:08 07/31/19 05:11 07/31/19 09:08 07/31/19 10:29 General appearance: Present: no acute distress, obese - EENT Eyes: Present: PERRL, EOM intact ENT: hearing intact, clear oral mucosa, dentition normal - Neck Neck: Present: supple, normal ROM - Respiratory Respiratory effort: normal Respiratory: bilateral: CTA - Cardiovascular Rhythm: regular Heart Sounds: Present: S1 & S2. Absent: gallop, rub - Extremities Extremities: no ischemia, No edema, Full ROM - Abdominal General gastrointestinal: soft, non-tender, non-distended, normal bowel sounds - Integumentary Integumentary: Present: clear, warm, dry - Neurologic Neurologic: CNII-XII intact, moves all extremities Results - Labs CBC & Chem 7: 07/27/19 08:00 07/27/19 08:00 Labs: Laboratory Last Values WBC 12.0 K/mm3 (4.5-11.0) H 07/27/19 08:00 RBC 3.35 M/mm3 (3.65-5.03) L 07/27/19 08:00 Hgb 9.4 gm/dl (11.8-15.2) L 07/27/19 08:00 Hct 29.3 % (35.5-45.6) L 07/27/19 08:00 MCV 88 fl (84-94) 07/27/19 08:00 MCH 28 pg (28-32) 07/27/19 08:00 MCHC 32 % (32-34) 07/27/19 08:00 RDW 18.2 % (13.2-15.2) H 07/27/19 08:00 Plt Count 341 K/mm3 (140-440) 07/27/19 08:00 Lymph % (Auto) 19.2 % (13.4-35.0) 07/20/19 04:33 [place] % (Auto) 6.1 % (0.0-7.3) 07/20/19 04:33 Eos % (Auto) 2.8 % (0.0-4.3) 07/20/19 04:33 Baso % (Auto) 1.1 % (0.0-1.8) 07/20/19 04:33 Lymph # 2.4 K/mm3 (1.2-5.4) 07/20/19 04:33 [place] # 0.8 K/mm3 (0.0-0.8) 07/20/19 04:33 Eos # 0.3 K/mm3 (0.0-0.4) 07/20/19 04:33 Baso # 0.1 K/mm3 (0.0-0.1) 07/20/19 04:33 Add Manual Diff Complete 07/08/19 04:00 Total Counted 100 07/08/19 04:00 Seg Neutrophils % 70.8 % (40.0-70.0) H 07/20/19 04:33 Seg Neuts % (Manual) 76.0 % (40.0-70.0) H 07/08/19 04:00 Band Neutrophils % 0 % 07/08/19 04:00 Lymphocytes % (Manual) 16.0 % (13.4-35.0) 07/08/19 04:00 Reactive Lymphs % (Man) 0 % 07/08/19 04:00 Monocytes % (Manual) 6.0 % (0.0-7.3) 07/08/19 04:00 Eosinophils % (Manual) 2.0 % (0.0-4.3) 07/08/19 04:00 Basophils % (Manual) 0 % (0.0-1.8) 07/08/19 04:00 Metamyelocytes % 0 % 07/08/19 04:00 Myelocytes % 0 % 07/08/19 04:00 Promyelocytes % 0 % 07/08/19 04:00 Blast Cells % 0 % 07/08/19 04:00 Nucleated RBC % Not Reportable 07/08/19 04:00 Seg Neutrophils # 8.7 K/mm3 (1.8-7.7) H 07/20/19 04:33 Seg Neutrophils # Man 8.4 K/mm3 (1.8-7.7) H 07/08/19 04:00 Band Neutrophils # 0.0 K/mm3 07/08/19 04:00 Lymphocytes # (Manual) 1.8 K/mm3 (1.2-5.4) 07/08/19 04:00 Abs React Lymphs (Man) 0.0 K/mm3 07/08/19 04:00 Monocytes # (Manual) 0.7 K/mm3 (0.0-0.8) 07/08/19 04:00 Eosinophils # (Manual) 0.2 K/mm3 (0.0-0.4) 07/08/19 04:00 Basophils # (Manual) 0.0 K/mm3 (0.0-0.1) 07/08/19 04:00 Metamyelocytes # 0.0 K/mm3 07/08/19 04:00 Myelocytes # 0.0 K/mm3 07/08/19 04:00 Promyelocytes # 0.0 K/mm3 07/08/19 04:00 Blast Cells # 0.0 K/mm3 07/08/19 04:00 WBC Morphology Not Reportable 07/08/19 04:00 Hypersegmented Neuts Not Reportable 07/08/19 04:00 Hyposegmented Neuts Not Reportable 07/08/19 04:00 Hypogranular Neuts Not Reportable 07/08/19 04:00 Smudge Cells Not Reportable 07/08/19 04:00 Toxic Granulation Not Reportable 07/08/19 04:00 Toxic Vacuolation Not Reportable 07/08/19 04:00 Dohle Bodies Not Reportable 07/08/19 04:00 Pelger-Huet Anomaly Not Reportable 07/08/19 04:00 Reena Rods Not Reportable 07/08/19 04:00 Platelet Estimate Consistent w auto 07/08/19 04:00 Clumped Platelets Not Reportable 07/08/19 04:00 Plt Clumps, EDTA Not Reportable 07/08/19 04:00 Large Platelets Not Reportable 07/08/19 04:00 Giant Platelets Not Reportable 07/08/19 04:00 Platelet Satelliting Not Reportable 07/08/19 04:00 Plt Morphology Comment Not Reportable 07/08/19 04:00 RBC Morphology Not Reportable 07/08/19 04:00 Dimorphic RBCs Not Reportable 07/08/19 04:00 Polychromasia Not Reportable 07/08/19 04:00 Hypochromasia Not Reportable 07/08/19 04:00 Poikilocytosis Not Reportable 07/08/19 04:00 Anisocytosis 1+ 07/08/19 04:00 Microcytosis Not Reportable 07/08/19 04:00 Macrocytosis Not Reportable 07/08/19 04:00 Spherocytes Not Reportable 07/08/19 04:00 Pappenheimer Bodies Not Reportable 07/08/19 04:00 Sickle Cells Not Reportable 07/08/19 04:00 Target Cells Not Reportable 07/08/19 04:00 Tear Drop Cells Not Reportable 07/08/19 04:00 Ovalocytes Not Reportable 07/08/19 04:00 Stomatocytes 3+ 06/23/19 05:24 Helmet Cells Not Reportable 07/08/19 04:00 [place] Bodies Not Reportable 07/08/19 04:00 [place] Rings Not Reportable 07/08/19 04:00 [place] Cells Not Reportable 07/08/19 04:00 Bite Cells Not Reportable 07/08/19 04:00 Crenated Cell Not Reportable 07/08/19 04:00 Elliptocytes Not Reportable 07/08/19 04:00 Acanthocytes (Spur) Not Reportable 07/08/19 04:00 Rouleaux Not Reportable 07/08/19 04:00 Hemoglobin C Crystals Not Reportable 07/08/19 04:00 Schistocytes Not Reportable 07/08/19 04:00 Malaria parasites Not Reportable 07/08/19 04:00 Syed Bodies Not Reportable 07/08/19 04:00 Hem Pathologist Commnt No 07/08/19 04:00 PT 15.4 Sec. (12.2-14.9) H 05/01/19 Unknown INR 1.23 (0.87-1.13) H 05/01/19 Unknown APTT 22.7 Sec. (24.2-36.6) L 05/01/19 Unknown Fibrinogen 194 mg/dl (211-480) L 06/17/19 12:45 Heparin Anti-Xa, Unfract Negative (Negative) 06/17/19 12:45 POC ABG pH 7.462 (7.35-7.45) H 06/05/19 03:52 ABG pH 7.469 pH Units (7.350-7.450) H 06/23/19 02:00 POC ABG pCO2 39.8 (35-45) 06/05/19 03:52 ABG pCO2 39.4 mm Hg 06/23/19 02:00 POC ABG pO2 86 (80-105) 06/05/19 03:52 ABG pO2 58.7 mm Hg (80.0-90.0) L 06/23/19 02:00 POC ABG HCO3 28.4 (22-26 mml/L) 06/05/19 03:52 ABG HCO3 28.0 mmol/L (20.0-26.0) H 06/23/19 02:00 POC ABG Total CO2 30 (23-27mmol/L) 06/05/19 03:52 POC ABG O2 Sat 97 06/05/19 03:52 ABG O2 Saturation 94.6 % (95.0-99.0) L 06/23/19 02:00 ABG O2 Content 9.2 (0.0-44) 06/23/19 02:00 POC ABG Base Excess 5 ((-2) - (+3)mmol/L) 06/05/19 03:52 ABG Base Excess 4.0 mmol/L (-2.0-3.0) H 06/23/19 02:00 ABG Hemoglobin 7.1 gm/dl (14.0-18.0) L 06/23/19 02:00 ABG Carboxyhemoglobin 2.0 % (0.0-5.0) 06/23/19 02:00 ABG Methemoglobin 0.5 % (0.0-1.5) 06/23/19 02:00 Oxyhemoglobin 92.2 % (95.0-99.0) L 06/23/19 02:00 FiO2 30 % 06/23/19 02:00 Sodium 140 mmol/L (137-145) 07/27/19 08:00 Potassium 4.1 mmol/L (3.6-5.0) 07/27/19 08:00 Chloride 97.7 mmol/L (98-107) L 07/27/19 08:00 Carbon Dioxide 24 mmol/L (22-30) 07/27/19 08:00 Anion Gap 22 mmol/L 07/27/19 08:00 BUN 9 mg/dL (9-20) 07/27/19 08:00 Creatinine 0.5 mg/dL (0.8-1.5) L 07/27/19 08:00 Estimated GFR > 60 ml/min 07/27/19 08:00 BUN/Creatinine Ratio 18 % 07/27/19 08:00 Glucose 117 mg/dL (75-100) H 07/27/19 08:00 POC Glucose 106 (70-105) H 07/31/19 11:41 Osmolality 327 Mosm/kg 05/07/19 13:45 Uric Acid 18.0 mg/dL (3.5-7.6) H 05/07/19 13:45 Calcium 9.5 mg/dL (8.4-10.2) 07/27/19 08:00 Phosphorus 3.70 mg/dL (2.5-4.5) 06/10/19 05:45 Magnesium 1.60 mg/dL (1.7-2.3) L 06/26/19 04:43 Iron 45 ug/dL (49-181) L 06/20/19 09:12 TIBC 110 mcg/dL (250-450) L 06/20/19 09:12 Ferritin 315.2 ng/mL (13.0-400.0) 06/20/19 09:12 Total Bilirubin 0.50 mg/dL (0.1-1.2) 06/08/19 04:20 AST 23 units/L (5-40) 06/08/19 04:20 ALT 66 units/L (7-56) H 06/08/19 04:20 Alkaline Phosphatase 59 units/L (35-129) 06/08/19 04:20 Total Creatine Kinase 131 units/L (55-170) 05/02/19 04:41 CK-MB (CK-2) 5.2 ng/mL (0.0-4.0) H 05/02/19 04:41 CK-MB (CK-2) Rel Index 3.9 (0-4) 05/02/19 04:41 Troponin T 0.067 ng/mL (0.00-0.029) H D 05/02/19 04:41 NT-Pro-B Natriuret Pep 6831 pg/mL (0-450) H 05/01/19 Unknown Total Protein 5.5 g/dL (6.3-8.2) L 06/08/19 04:20 Albumin 2.9 g/dL (3.9-5) L 06/08/19 04:20 Albumin/Globulin Ratio 1.1 % 06/08/19 04:20 Triglycerides 210 mg/dL (2-149) H 06/19/19 04:30 Cholesterol 173 mg/dL (50-199) 05/02/19 00:06 LDL Cholesterol Direct 126 mg/dL (50-130) 05/02/19 00:06 HDL Cholesterol 18 mg/dL (40-59) L 05/02/19 00:06 Cholesterol/HDL Ratio 9.61 % 05/02/19 00:06 Serotonin Release Assay See scanned results 06/17/19 12:45 Vitamin B12 353.0 pg/mL (211-911) 06/20/19 09:12 Folate 7.01 ng/mL (7.3-26.0) L 06/20/19 09:12 Procalcitonin 0.05 ng/mL (<0.15) 06/17/19 12:45 Urine Color Yellow (Yellow) 06/17/19 12:45 Urine Turbidity Slightly-cloudy (Clear) 06/17/19 12:45 Urine pH 5.0 (5.0-7.0) 06/17/19 12:45 Ur Specific [place] 1.013 (1.003-1.030) 06/17/19 12:45 Urine Protein <15 mg/dl mg/dL (Negative) 06/17/19 12:45 Urine Glucose (UA) Neg mg/dL (Negative) 06/17/19 12:45 Urine Ketones Neg mg/dL (Negative) 06/17/19 12:45 Urine Blood Sm (Negative) 06/17/19 12:45 Urine Nitrite Neg (Negative) 06/17/19 12:45 Urine Bilirubin Neg (Negative) 06/17/19 12:45 Urine Urobilinogen < 2.0 mg/dL (<2.0) 06/17/19 12:45 Ur Leukocyte Esterase Neg (Negative) 06/17/19 12:45 Urine WBC (Auto) 2.0 /HPF (0.0-6.0) 06/17/19 12:45 Urine RBC (Auto) 2.0 /HPF (0.0-6.0) 06/17/19 12:45 U Epithel Cells (Auto) < 1.0 /HPF (0-13.0) 06/17/19 12:45 Urine Bacteria (Auto) 1+ /HPF (Negative) 05/20/19 12:00 Uric Acid Crystals 3+ 05/03/19 10:55 Urine Mucus Few /HPF 06/17/19 12:45 Urine Yeast (Budding) 3+ /HPF 05/20/19 12:00 Urine Creatinine 292.8 mg/dL (0.1-20.0) H 05/07/19 22:40 Urine Sodium 11 mmol/L 05/07/19 22:40 Urine Total Protein 269 mg/dL (5-11.8) H 05/07/19 22:40 Vancomycin Trough 20.5 ug/mL (5.0-20.0) H 05/15/19 09:00 Random Vancomycin 11.5 ug/mL (0-40.0) 05/27/19 06:00 AMNA Screen Negative (Negative) 05/07/19 13:45 Heparin-induced Plt Ab Negative (Negative) 06/17/19 12:45 UF Heparin High Dose 13 % Release 06/17/19 12:45 YUNG UFH Low Dose 0.1 8 % Release 06/17/19 12:45 YUNG UFH Low Dose 0.5 7 % Release 06/17/19 12:45 Hepatitis A IgM Ab Non-reactive (NonReactive) 05/07/19 13:45 Hep Bs Antigen Non-reactive (Negative) 05/07/19 13:45 Hep B Core IgM Ab Non-reactive (NonReactive) 05/07/19 13:45 Hepatitis C Antibody Non-reactive (NonReactive) 05/07/19 13:45 Influenza A (Rapid) Negative (Negative) 06/17/19 11:35 Influenza B (Rapid) Negative (Negative) 06/17/19 11:35 Active Medications - Current Medications Current Medications: Generic Name Dose Route Start Last Admin Trade Name Freq PRN Reason Stop Dose Admin Acetaminophen 650 mg 07/02/19 23:56 07/28/19 21:16 Tylenol PO 650 mg Q4H PRN Administration Pain, Mild (1-3) Amlodipine Besylate 10 mg 07/25/19 10:00 07/31/19 09:08 Amlodipine PO 10 mg DAILY VICKEY Administration Lipase/Protease/Amylase 1 each 07/15/19 12:[address] 10,500 Unit FEEDTUBE PRN PRN For Clogged Feeding Tube Apixaban 2.5 mg 06/23/19 22:00 07/31/19 09:08 Eliquis PO 2.5 mg Q12HR VICKEY Administration Protocol Dextrose 50 gm 05/01/19 20:24 D50w (25gm) Vial IV Q30MIN PRN Hypoglycemia Protocol Famotidine 20 mg 06/17/19 10:00 07/31/19 09:08 Pepcid PO 20 mg BID VICKEY Administration Ferrous Sulfate 308 mg 06/18/19 12:00 07/31/19 10:21 Ferrous Sulfate PO 308 mg QDAY VICKEY Administration Hydrochlorothiazide 25 mg 06/26/19 11:00 07/31/19 09:08 Hctz PO 25 mg QDAY VICKEY Administration Insulin Human Lispro 0 unit 06/01/19 14:00 07/31/19 05:43 Humalog SUB-Q Not Given Q6HR VICKEY Protocol Labetalol HCl 200 mg 06/28/19 10:00 07/31/19 05:28 Labetalol PO 200 mg Q8HR VICKEY Administration Lorazepam 1 mg 07/29/19 18:38 07/31/19 09:08 Ativan PO 1 mg Q8H PRN Administration Agitation Multi-Ingred Cream/Lotion/Oil/Oint 1 applic 06/16/19 18:00 Artificial Tears Ophth Oint OU Q4HR PRN Dry Eye(s) Multivitamins 5 ml 06/29/19 12:00 07/31/19 10:21 Centrum Liq PO 5 ml QDAY VICKEY Administration Ondansetron HCl 4 mg 07/22/19 16:14 Zofran IV Q8H PRN Nausea And Vomiting Scopolamine 1 each 06/27/19 09:00 07/30/19 09:59 Transderm-Scop TD 1 each Q3D VICKEY Administration Simple Syrup 15 ml 07/15/19 12:26 Simple Syrup FEEDTUBE PRN PRN Hypoglycemia Simple Syrup 30 ml 07/15/19 12:26 Simple Syrup FEEDTUBE PRN PRN Hypoglycemia Sodium Bicarbonate 325 mg 07/15/19 12:26 Sodium Bicarbonate FEEDTUBE PRN PRN For Clogged Feeding Tube Nutrition/Malnutrition Assess - Dietary Evaluation Nutrition/Malnutrition Findings: Nutrition Notes Start: 05/04/19 12:54 Freq: Status: Active Protocol: Document 07/30/19 13:20 KS (Rec: 07/30/19 13:26 KS [id number]) Co-Sign 07/30/19 13:20 LM Nutrition Notes Initial or Follow up Reassessment Current Diagnosis Acute Kidney Injury,Sepsis, Respiratory Failure Current Diet Osmolite 1.5 at 60 ml/hr Labs/Tests POC Glu 107 Pertinent Medications Reviewed Height 6 ft 4 in Weight 183.2 kg [place] Body Weight (kg) 91.81 BMI 49.1 Weight change and time frame wt change noted Weight Status Morbidly Obese Subjective/Other Information Osmolite observed running at 60mL/hr at time of visit. Pt tolerating TF. Percent of energy/protein needs met: 100%/100% Burn Absent Trauma Absent GI Symptoms None Current % PO Negligible Minimum of two criteria No Fluid Accumulation Moderate to Severe (severe) #1 Nutrition Diagnosis Inadequate oral intake Diagnosis Progress(for reassessment Continues documentation) Is patient on ventilator? Yes Is Patient Ambulatory and/or Out of Bed No REE-([facility]-confined to bed) 3455.172 Kcal/Kg value to use for calculation 11 Approximate Energy Requirements Using 2015 kcal/Kg Calculation Used for Recommendations Kcal/kg Additional Notes PRO needs: 73-91g (0.8-1 g/kg IBW 91kg CARLA resolved) Fluid needs: 1 ml/kcal Nutrition Intervention Change Diet Order: Continue TF Nutrition Support: Osmolite at 60 ml/hr Flush 200 ml q4h Kcal 2,160 Protein (gm) 90 Fluid (mL) 1,097 Goal #1 TF tolerance Goal #2 Meet at least 80% of PRO/kcal needs via TF Anticipated Discharge Needs: Bolus Jevity 1.2 7 cans/day 2 cans for breakfast 2 cans for lunch 1 can scack 2 cans dinner Flush 100 ml before and after each bolus (breakfast, lunch, snack, and dinner) Follow-Up By: 08/02/19 Additional Comments F/U for TF/POC
--- NOTE | 2019-08-01 09:30 | Progress Note ---
Assessment and Plan Assessment and plan: Acute respiratory failure; tracheostomy dependent cont trach care, scheduled nebulizers Pulmonary following Obesity hypoventilation syndrome titrate O2 sats to more than 90% Status post cardiac arrest mild anoxic brain injury EEG was negative for seizures and neurology evaluated Oral pharyngeal dysphagia continue tube feeds Anemia of chronic disease Closely monitor H&H and transfuse as needed. 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 Now Patient is on Eliquis Acute kidney injury due to ATN Initially requiring dialysis Resolved, nephrology following. Hypernatremia/Hypokalemia/ hypomagnesemia Resolved Morbid obesity will need weight loss program upon discharge DVT prophylaxis scd /Eliquis Physical therapy/occupational therapy when patient is stable 3/3-patient still has intermittent episodes of agitation and requires a safety equipment testing specialist. I discussed with foster care case manager discharge planning and continue discussions with family. 3/4patient with agitation last evening and this morning requiring soft wrist restraints. Continue trach care, secretion control and airway management. Tracheostomy is indefinite. Family preparation for trach management. 3/6patient still with agitation which remains a problem. Case management still actively working on discharge planning 3patient still with agitation. Case management working on discharge planning. 3patient still with agitation requiring restraints. Case management continues to work on discharge planning. History Interval history: No new issues overnight. Hospitalist Physical - Constitutional Vitals: Temp Pulse Resp BP Pulse Ox 99.7 F H 88 22 129/70 95 08/01/19 06:04 08/01/19 06:11 08/01/19 06:04 08/01/19 06:11 08/01/19 08:22 General appearance: Present: no acute distress, obese - EENT Eyes: Present: PERRL, EOM intact ENT: hearing intact, clear oral mucosa, dentition normal - Neck Neck: Present: supple, normal ROM - Respiratory Respiratory effort: normal Respiratory: bilateral: CTA - Cardiovascular Rhythm: regular Heart Sounds: Present: S1 & S2. Absent: gallop, rub - Extremities Extremities: no ischemia, No edema, Full ROM - Abdominal General gastrointestinal: soft, non-tender, non-distended, normal bowel sounds - Integumentary Integumentary: Present: clear, warm, dry - Neurologic Neurologic: CNII-XII intact, moves all extremities Results - Labs CBC & Chem 7: 07/27/19 08:00 07/27/19 08:00 Labs: Laboratory Last Values WBC 12.0 K/mm3 (4.5-11.0) H 07/27/19 08:00 RBC 3.35 M/mm3 (3.65-5.03) L 07/27/19 08:00 Hgb 9.4 gm/dl (11.8-15.2) L 07/27/19 08:00 Hct 29.3 % (35.5-45.6) L 07/27/19 08:00 MCV 88 fl (84-94) 07/27/19 08:00 MCH 28 pg (28-32) 07/27/19 08:00 MCHC 32 % (32-34) 07/27/19 08:00 RDW 18.2 % (13.2-15.2) H 07/27/19 08:00 Plt Count 341 K/mm3 (140-440) 07/27/19 08:00 Lymph % (Auto) 19.2 % (13.4-35.0) 07/20/19 04:33 [place] % (Auto) 6.1 % (0.0-7.3) 07/20/19 04:33 Eos % (Auto) 2.8 % (0.0-4.3) 07/20/19 04:33 Baso % (Auto) 1.1 % (0.0-1.8) 07/20/19 04:33 Lymph # 2.4 K/mm3 (1.2-5.4) 07/20/19 04:33 [place] # 0.8 K/mm3 (0.0-0.8) 07/20/19 04:33 Eos # 0.3 K/mm3 (0.0-0.4) 07/20/19 04:33 Baso # 0.1 K/mm3 (0.0-0.1) 07/20/19 04:33 Add Manual Diff Complete 07/08/19 04:00 Total Counted 100 07/08/19 04:00 Seg Neutrophils % 70.8 % (40.0-70.0) H 07/20/19 04:33 Seg Neuts % (Manual) 76.0 % (40.0-70.0) H 07/08/19 04:00 Band Neutrophils % 0 % 07/08/19 04:00 Lymphocytes % (Manual) 16.0 % (13.4-35.0) 07/08/19 04:00 Reactive Lymphs % (Man) 0 % 07/08/19 04:00 Monocytes % (Manual) 6.0 % (0.0-7.3) 07/08/19 04:00 Eosinophils % (Manual) 2.0 % (0.0-4.3) 07/08/19 04:00 Basophils % (Manual) 0 % (0.0-1.8) 07/08/19 04:00 Metamyelocytes % 0 % 07/08/19 04:00 Myelocytes % 0 % 07/08/19 04:00 Promyelocytes % 0 % 07/08/19 04:00 Blast Cells % 0 % 07/08/19 04:00 Nucleated RBC % Not Reportable 07/08/19 04:00 Seg Neutrophils # 8.7 K/mm3 (1.8-7.7) H 07/20/19 04:33 Seg Neutrophils # Man 8.4 K/mm3 (1.8-7.7) H 07/08/19 04:00 Band Neutrophils # 0.0 K/mm3 07/08/19 04:00 Lymphocytes # (Manual) 1.8 K/mm3 (1.2-5.4) 07/08/19 04:00 Abs React Lymphs (Man) 0.0 K/mm3 07/08/19 04:00 Monocytes # (Manual) 0.7 K/mm3 (0.0-0.8) 07/08/19 04:00 Eosinophils # (Manual) 0.2 K/mm3 (0.0-0.4) 07/08/19 04:00 Basophils # (Manual) 0.0 K/mm3 (0.0-0.1) 07/08/19 04:00 Metamyelocytes # 0.0 K/mm3 07/08/19 04:00 Myelocytes # 0.0 K/mm3 07/08/19 04:00 Promyelocytes # 0.0 K/mm3 07/08/19 04:00 Blast Cells # 0.0 K/mm3 07/08/19 04:00 WBC Morphology Not Reportable 07/08/19 04:00 Hypersegmented Neuts Not Reportable 07/08/19 04:00 Hyposegmented Neuts Not Reportable 07/08/19 04:00 Hypogranular Neuts Not Reportable 07/08/19 04:00 Smudge Cells Not Reportable 07/08/19 04:00 Toxic Granulation Not Reportable 07/08/19 04:00 Toxic Vacuolation Not Reportable 07/08/19 04:00 Dohle Bodies Not Reportable 07/08/19 04:00 Pelger-Huet Anomaly Not Reportable 07/08/19 04:00 Renea Rods Not Reportable 07/08/19 04:00 Platelet Estimate Consistent w auto 07/08/19 04:00 Clumped Platelets Not Reportable 07/08/19 04:00 Plt Clumps, EDTA Not Reportable 07/08/19 04:00 Large Platelets Not Reportable 07/08/19 04:00 Giant Platelets Not Reportable 07/08/19 04:00 Platelet Satelliting Not Reportable 07/08/19 04:00 Plt Morphology Comment Not Reportable 07/08/19 04:00 RBC Morphology Not Reportable 07/08/19 04:00 Dimorphic RBCs Not Reportable 07/08/19 04:00 Polychromasia Not Reportable 07/08/19 04:00 Hypochromasia Not Reportable 07/08/19 04:00 Poikilocytosis Not Reportable 07/08/19 04:00 Anisocytosis 1+ 07/08/19 04:00 Microcytosis Not Reportable 07/08/19 04:00 Macrocytosis Not Reportable 07/08/19 04:00 Spherocytes Not Reportable 07/08/19 04:00 Pappenheimer Bodies Not Reportable 07/08/19 04:00 Sickle Cells Not Reportable 07/08/19 04:00 Target Cells Not Reportable 07/08/19 04:00 Tear Drop Cells Not Reportable 07/08/19 04:00 Ovalocytes Not Reportable 07/08/19 04:00 Stomatocytes 3+ 06/23/19 05:24 Helmet Cells Not Reportable 07/08/19 04:00 [place] Bodies Not Reportable 07/08/19 04:00 [place] Rings Not Reportable 07/08/19 04:00 Dennis Cells Not Reportable 07/08/19 04:00 Bite Cells Not Reportable 07/08/19 04:00 Crenated Cell Not Reportable 07/08/19 04:00 Elliptocytes Not Reportable 07/08/19 04:00 Acanthocytes (Spur) Not Reportable 07/08/19 04:00 Rouleaux Not Reportable 07/08/19 04:00 Hemoglobin C Crystals Not Reportable 07/08/19 04:00 Schistocytes Not Reportable 07/08/19 04:00 Malaria parasites Not Reportable 07/08/19 04:00 Syed Bodies Not Reportable 07/08/19 04:00 Hem Pathologist Commnt No 07/08/19 04:00 PT 15.4 Sec. (12.2-14.9) H 05/01/19 Unknown INR 1.23 (0.87-1.13) H 05/01/19 Unknown APTT 22.7 Sec. (24.2-36.6) L 05/01/19 Unknown Fibrinogen 194 mg/dl (211-480) L 06/17/19 12:45 Heparin Anti-Xa, Unfract Negative (Negative) 06/17/19 12:45 POC ABG pH 7.462 (7.35-7.45) H 06/05/19 03:52 ABG pH 7.469 pH Units (7.350-7.450) H 06/23/19 02:00 POC ABG pCO2 39.8 (35-45) 06/05/19 03:52 ABG pCO2 39.4 mm Hg 06/23/19 02:00 POC ABG pO2 86 (80-105) 06/05/19 03:52 ABG pO2 58.7 mm Hg (80.0-90.0) L 06/23/19 02:00 POC ABG HCO3 28.4 (22-26 mml/L) 06/05/19 03:52 ABG HCO3 28.0 mmol/L (20.0-26.0) H 06/23/19 02:00 POC ABG Total CO2 30 (23-27mmol/L) 06/05/19 03:52 POC ABG O2 Sat 97 06/05/19 03:52 ABG O2 Saturation 94.6 % (95.0-99.0) L 06/23/19 02:00 ABG O2 Content 9.2 (0.0-44) 06/23/19 02:00 POC ABG Base Excess 5 ((-2) - (+3)mmol/L) 06/05/19 03:52 ABG Base Excess 4.0 mmol/L (-2.0-3.0) H 06/23/19 02:00 ABG Hemoglobin 7.1 gm/dl (14.0-18.0) L 06/23/19 02:00 ABG Carboxyhemoglobin 2.0 % (0.0-5.0) 06/23/19 02:00 ABG Methemoglobin 0.5 % (0.0-1.5) 06/23/19 02:00 Oxyhemoglobin 92.2 % (95.0-99.0) L 06/23/19 02:00 FiO2 30 % 06/23/19 02:00 Sodium 140 mmol/L (137-145) 07/27/19 08:00 Potassium 4.1 mmol/L (3.6-5.0) 07/27/19 08:00 Chloride 97.7 mmol/L (98-107) L 07/27/19 08:00 Carbon Dioxide 24 mmol/L (22-30) 07/27/19 08:00 Anion Gap 22 mmol/L 07/27/19 08:00 BUN 9 mg/dL (9-20) 07/27/19 08:00 Creatinine 0.5 mg/dL (0.8-1.5) L 07/27/19 08:00 Estimated GFR > 60 ml/min 07/27/19 08:00 BUN/Creatinine Ratio 18 % 07/27/19 08:00 Glucose 117 mg/dL (75-100) H 07/27/19 08:00 POC Glucose 117 (70-105) H 08/01/19 00:00 Osmolality 327 Mosm/kg 05/07/19 13:45 Uric Acid 18.0 mg/dL (3.5-7.6) H 05/07/19 13:45 Calcium 9.5 mg/dL (8.4-10.2) 07/27/19 08:00 Phosphorus 3.70 mg/dL (2.5-4.5) 06/10/19 05:45 Magnesium 1.60 mg/dL (1.7-2.3) L 06/26/19 04:43 Iron 45 ug/dL (49-181) L 06/20/19 09:12 TIBC 110 mcg/dL (250-450) L 06/20/19 09:12 Ferritin 315.2 ng/mL (13.0-400.0) 06/20/19 09:12 Total Bilirubin 0.50 mg/dL (0.1-1.2) 06/08/19 04:20 AST 23 units/L (5-40) 06/08/19 04:20 ALT 66 units/L (7-56) H 06/08/19 04:20 Alkaline Phosphatase 59 units/L (35-129) 06/08/19 04:20 Total Creatine Kinase 131 units/L (55-170) 05/02/19 04:41 CK-MB (CK-2) 5.2 ng/mL (0.0-4.0) H 05/02/19 04:41 CK-MB (CK-2) Rel Index 3.9 (0-4) 05/02/19 04:41 Troponin T 0.067 ng/mL (0.00-0.029) H D 05/02/19 04:41 NT-Pro-B Natriuret Pep 6831 pg/mL (0-450) H 05/01/19 Unknown Total Protein 5.5 g/dL (6.3-8.2) L 06/08/19 04:20 Albumin 2.9 g/dL (3.9-5) L 06/08/19 04:20 Albumin/Globulin Ratio 1.1 % 06/08/19 04:20 Triglycerides 210 mg/dL (2-149) H 06/19/19 04:30 Cholesterol 173 mg/dL (50-199) 05/02/19 00:06 LDL Cholesterol Direct 126 mg/dL (50-130) 05/02/19 00:06 HDL Cholesterol 18 mg/dL (40-59) L 05/02/19 00:06 Cholesterol/HDL Ratio 9.61 % 05/02/19 00:06 Serotonin Release Assay See scanned results 06/17/19 12:45 Vitamin B12 353.0 pg/mL (211-911) 06/20/19 09:12 Folate 7.01 ng/mL (7.3-26.0) L 06/20/19 09:12 Procalcitonin 0.05 ng/mL (<0.15) 06/17/19 12:45 Urine Color Yellow (Yellow) 06/17/19 12:45 Urine Turbidity Slightly-cloudy (Clear) 06/17/19 12:45 Urine pH 5.0 (5.0-7.0) 06/17/19 12:45 Ur Specific [place] 1.013 (1.003-1.030) 06/17/19 12:45 Urine Protein <15 mg/dl mg/dL (Negative) 06/17/19 12:45 Urine Glucose (UA) Neg mg/dL (Negative) 06/17/19 12:45 Urine Ketones Neg mg/dL (Negative) 06/17/19 12:45 Urine Blood Sm (Negative) 06/17/19 12:45 Urine Nitrite Neg (Negative) 06/17/19 12:45 Urine Bilirubin Neg (Negative) 06/17/19 12:45 Urine Urobilinogen < 2.0 mg/dL (<2.0) 06/17/19 12:45 Ur Leukocyte Esterase Neg (Negative) 06/17/19 12:45 Urine WBC (Auto) 2.0 /HPF (0.0-6.0) 06/17/19 12:45 Urine RBC (Auto) 2.0 /HPF (0.0-6.0) 06/17/19 12:45 U Epithel Cells (Auto) < 1.0 /HPF (0-13.0) 06/17/19 12:45 Urine Bacteria (Auto) 1+ /HPF (Negative) 05/20/19 12:00 Uric Acid Crystals 3+ 05/03/19 10:55 Urine Mucus Few /HPF 06/17/19 12:45 Urine Yeast (Budding) 3+ /HPF 05/20/19 12:00 Urine Creatinine 292.8 mg/dL (0.1-20.0) H 05/07/19 22:40 Urine Sodium 11 mmol/L 05/07/19 22:40 Urine Total Protein 269 mg/dL (5-11.8) H 05/07/19 22:40 Vancomycin Trough 20.5 ug/mL (5.0-20.0) H 05/15/19 09:00 Random Vancomycin 11.5 ug/mL (0-40.0) 05/27/19 06:00 AMNA Screen Negative (Negative) 05/07/19 13:45 Heparin-induced Plt Ab Negative (Negative) 01/23/20 12:45 UF Heparin High Dose 13 % Release 06/17/19 12:45 YUNG UFH Low Dose 0.1 8 % Release 06/17/19 12:45 YUNG UFH Low Dose 0.5 7 % Release 06/17/19 12:45 Hepatitis A IgM Ab Non-reactive (NonReactive) 05/07/19 13:45 Hep Bs Antigen Non-reactive (Negative) 05/07/19 13:45 Hep B Core IgM Ab Non-reactive (NonReactive) 05/07/19 13:45 Hepatitis C Antibody Non-reactive (NonReactive) 05/07/19 13:45 Influenza A (Rapid) Negative (Negative) 06/17/19 11:35 Influenza B (Rapid) Negative (Negative) 06/17/19 11:35 Active Medications - Current Medications Current Medications: Generic Name Dose Route Start Last Admin Trade Name Freq PRN Reason Stop Dose Admin Acetaminophen 650 mg 07/02/19 23:56 07/28/19 21:16 Tylenol PO 650 mg Q4H PRN Administration Pain, Mild (1-3) Amlodipine Besylate 10 mg 07/25/19 10:00 07/31/19 09:08 Amlodipine PO 10 mg DAILY VICKEY Administration Lipase/Protease/Amylase 1 each 07/15/19 12:[address] 10,500 Unit FEEDTUBE PRN PRN For Clogged Feeding Tube Apixaban 2.5 mg 06/23/19 22:00 07/31/19 23:52 Eliquis PO 2.5 mg Q12HR VICKEY Administration Protocol Dextrose 50 gm 05/01/19 20:24 D50w (25gm) Vial IV Q30MIN PRN Hypoglycemia Protocol Famotidine 20 mg 06/17/19 10:00 07/31/19 23:57 Pepcid PO 20 mg BID VICKEY Administration Ferrous Sulfate 308 mg 06/18/19 12:00 07/31/19 10:21 Ferrous Sulfate PO 308 mg QDAY VICKEY Administration Hydrochlorothiazide 25 mg 06/26/19 11:00 07/31/19 09:08 Hctz PO 25 mg QDAY VICKEY Administration Labetalol HCl 200 mg 06/28/19 10:00 08/01/19 06:11 Labetalol PO 200 mg Q8HR VICKEY Administration Lorazepam 1 mg 07/29/19 18:38 07/31/19 09:08 Ativan PO 1 mg Q8H PRN Administration Agitation Multi-Ingred Cream/Lotion/Oil/Oint 1 applic 06/16/19 18:00 Artificial Tears Ophth Oint OU Q4HR PRN Dry Eye(s) Multivitamins 5 ml 06/29/19 12:00 07/31/19 10:21 Centrum Liq PO 5 ml QDAY VICKEY Administration Ondansetron HCl 4 mg 07/22/19 16:14 Zofran IV Q8H PRN Nausea And Vomiting Scopolamine 1 each 06/27/19 09:00 07/30/19 09:59 Transderm-Scop TD 1 each Q3D VICKEY Administration Simple Syrup 15 ml 07/15/19 12:26 Simple Syrup FEEDTUBE PRN PRN Hypoglycemia Simple Syrup 30 ml 07/15/19 12:26 Simple Syrup FEEDTUBE PRN PRN Hypoglycemia Sodium Bicarbonate 325 mg 07/15/19 12:26 Sodium Bicarbonate FEEDTUBE PRN PRN For Clogged Feeding Tube Nutrition/Malnutrition Assess - Dietary Evaluation Nutrition/Malnutrition Findings: Nutrition Notes Start: 05/04/19 12:54 Freq: Status: Active Protocol: Document 07/30/19 13:20 KS (Rec: 07/30/19 13:26 KS [id number]) Co-Sign 07/30/19 13:20 LM Nutrition Notes Initial or Follow up Reassessment Current Diagnosis Acute Kidney Injury,Sepsis, Respiratory Failure Current Diet Osmolite 1.5 at 60 ml/hr Labs/Tests POC Glu 107 Pertinent Medications Reviewed Height 6 ft 4 in Weight 183.2 kg [place] Body Weight (kg) 91.81 BMI 49.1 Weight change and time frame wt change noted Weight Status Morbidly Obese Subjective/Other Information Osmolite observed running at 60mL/hr at time of visit. Pt tolerating TF. Percent of energy/protein needs met: 100%/100% Burn Absent Trauma Absent GI Symptoms None Current % PO Negligible Minimum of two criteria No Fluid Accumulation Moderate to Severe (severe) #1 Nutrition Diagnosis Inadequate oral intake Diagnosis Progress(for reassessment Continues documentation) Is patient on ventilator? Yes Is Patient Ambulatory and/or Out of Bed No REE-([place]-confined to bed) 3455.172 Kcal/Kg value to use for calculation 11 Approximate Energy Requirements Using 2015 kcal/Kg Calculation Used for Recommendations Kcal/kg Additional Notes PRO needs: 73-91g (0.8-1 g/kg IBW 91kg CARLA resolved) Fluid needs: 1 ml/kcal Nutrition Intervention Change Diet Order: Continue TF Nutrition Support: Osmolite at 60 ml/hr Flush 200 ml q4h Kcal 2,160 Protein (gm) 90 Fluid (mL) 1,097 Goal #1 TF tolerance Goal #2 Meet at least 80% of PRO/kcal needs via TF Anticipated Discharge Needs: Bolus Jevity 1.2 7 cans/day 2 cans for breakfast 2 cans for lunch 1 can scack 2 cans dinner Flush 100 ml before and after each bolus (breakfast, lunch, snack, and dinner) Follow-Up By: 08/02/19 Additional Comments F/U for TF/POC
--- NOTE | 2019-08-01 10:06 | Progress Note ---
Subjective Date of service: 08/01/19 Principal diagnosis: anemia - LOw PLT Interval history: rounds on the patient and reviewed all notes hopefully with weight loss we can get CT of brain at some point chronic encephaloapthy multi factorial Objective - Vital Sign Vital Signs - 12hr 07/31/19 07/31/19 08/01/19 23:51 23:53 04:24 Temperature 99.2 F Pulse Rate 108 H 109 H Respiratory 20 Rate Blood Pressure 119/60 109/60 O2 Sat by Pulse 96 Oximetry O2 Sat by Pulse 96 Oximetry [ Assessment] 08/01/19 08/01/19 08/01/19 06:04 06:11 08:22 Temperature 99.7 F H Pulse Rate 88 Respiratory 22 Rate Blood Pressure 127/70 129/70 O2 Sat by Pulse 95 Oximetry O2 Sat by Pulse 95 Oximetry [ Assessment] - Laboratory Findings CBC and BMP: 07/27/19 08:00 07/27/19 08:00 Abnormal Lab Findings: Abnormal Labs 05/01/19 05/01/19 05/01/19 17:50 19:26 22:36 WBC RBC Hgb Hct MCV MCH MCHC RDW Plt Count Lymph % (Auto) [place] % (Auto) Eos % (Auto) Lymph # [place] # Eos # Seg Neutrophils % Seg Neuts % (Manual) Lymphocytes % (Manual) Monocytes % (Manual) Eosinophils % (Manual) Nucleated RBC % Seg Neutrophils # Seg Neutrophils # Man Lymphocytes # (Manual) Monocytes # (Manual) Eosinophils # (Manual) PT INR APTT Fibrinogen POC ABG pH 7.272 L 7.331 L ABG pH POC ABG pCO2 52.8 H POC ABG pO2 ABG pO2 ABG HCO3 ABG O2 Saturation ABG Base Excess ABG Hemoglobin Oxyhemoglobin Sodium 136 L Potassium 6.5 H* Chloride 97.2 L Carbon Dioxide BUN 60 H Creatinine Glucose 113 H POC Glucose Uric Acid Calcium Phosphorus Magnesium 2.40 H Iron TIBC AST 139 H ALT 154 H Total Creatine Kinase CK-MB (CK-2) Troponin T NT-Pro-B Natriuret Pep Total Protein Albumin 3.8 L Triglycerides HDL Cholesterol Folate Urine WBC (Auto) Urine Creatinine Urine Total Protein Vancomycin Trough 05/01/19 05/01/19 05/01/19 Unknown Unknown Unknown WBC 16.1 H RBC Hgb Hct MCV MCH MCHC RDW 17.2 H Plt Count Lymph % (Auto) [place] % (Auto) 9.6 H Eos % (Auto) Lymph # [place] # 1.5 H Eos # Seg Neutrophils % 73.0 H Seg Neuts % (Manual) Lymphocytes % (Manual) Monocytes % (Manual) Eosinophils % (Manual) Nucleated RBC % Seg Neutrophils # 11.7 H Seg Neutrophils # Man Lymphocytes # (Manual) Monocytes # (Manual) Eosinophils # (Manual) PT 15.4 H INR 1.23 H APTT 22.7 L Fibrinogen POC ABG pH ABG pH POC ABG pCO2 POC ABG pO2 ABG pO2 ABG HCO3 ABG O2 Saturation ABG Base Excess ABG Hemoglobin Oxyhemoglobin Sodium Potassium Chloride Carbon Dioxide BUN Creatinine Glucose POC Glucose Uric Acid Calcium Phosphorus Magnesium Iron TIBC AST ALT Total Creatine Kinase CK-MB (CK-2) Troponin T NT-Pro-B Natriuret Pep 6831 H Total Protein Albumin Triglycerides HDL Cholesterol Folate Urine WBC (Auto) Urine Creatinine Urine Total Protein Vancomycin Trough 05/01/19 05/02/19 05/02/19 Unknown 00:06 00:06 WBC RBC Hgb Hct MCV MCH MCHC RDW Plt Count Lymph % (Auto) [place] % (Auto) Eos % (Auto) Lymph # [place] # Eos # Seg Neutrophils % Seg Neuts % (Manual) Lymphocytes % (Manual) Monocytes % (Manual) Eosinophils % (Manual) Nucleated RBC % Seg Neutrophils # Seg Neutrophils # Man Lymphocytes # (Manual) Monocytes # (Manual) Eosinophils # (Manual) PT INR APTT Fibrinogen POC ABG pH ABG pH POC ABG pCO2 POC ABG pO2 ABG pO2 ABG HCO3 ABG O2 Saturation ABG Base Excess ABG Hemoglobin Oxyhemoglobin Sodium Potassium Chloride Carbon Dioxide BUN Creatinine Glucose POC Glucose Uric Acid Calcium Phosphorus 4.90 H Magnesium Iron TIBC AST ALT Total Creatine Kinase 226 H CK-MB (CK-2) 5.7 H Troponin T 0.044 H NT-Pro-B Natriuret Pep Total Protein Albumin Triglycerides 182 H HDL Cholesterol 18 L Folate Urine WBC (Auto) Urine Creatinine Urine Total Protein Vancomycin Trough 05/02/19 05/02/19 05/02/19 02:08 04:40 04:41 WBC 17.6 H RBC Hgb Hct MCV MCH 27 L MCHC RDW 17.4 H Plt Count Lymph % (Auto) 10.2 L [place] % (Auto) 11.0 H Eos % (Auto) Lymph # [place] # 1.9 H Eos # Seg Neutrophils % 78.0 H Seg Neuts % (Manual) Lymphocytes % (Manual) Monocytes % (Manual) Eosinophils % (Manual) Nucleated RBC % Seg Neutrophils # 13.8 H Seg Neutrophils # Man Lymphocytes # (Manual) Monocytes # (Manual) Eosinophils # (Manual) PT INR APTT Fibrinogen POC ABG pH ABG pH POC ABG pCO2 46.8 H POC ABG pO2 63 L ABG pO2 ABG HCO3 ABG O2 Saturation ABG Base Excess ABG Hemoglobin Oxyhemoglobin Sodium Potassium Chloride 96.3 L Carbon Dioxide BUN 63 H Creatinine 1.7 H Glucose POC Glucose Uric Acid Calcium Phosphorus Magnesium Iron TIBC AST ALT Total Creatine Kinase CK-MB (CK-2) Troponin T NT-Pro-B Natriuret Pep Total Protein Albumin Triglycerides HDL Cholesterol Folate Urine WBC (Auto) Urine Creatinine Urine Total Protein Vancomycin Trough 05/02/19 05/02/19 05/02/19 04:41 04:41 16:05 WBC RBC Hgb Hct MCV MCH MCHC RDW Plt Count Lymph % (Auto) [place] % (Auto) Eos % (Auto) Lymph # [place] # Eos # Seg Neutrophils % Seg Neuts % (Manual) Lymphocytes % (Manual) Monocytes % (Manual) Eosinophils % (Manual) Nucleated RBC % Seg Neutrophils # Seg Neutrophils # Man Lymphocytes # (Manual) Monocytes # (Manual) Eosinophils # (Manual) PT INR APTT Fibrinogen POC ABG pH ABG pH POC ABG pCO2 POC ABG pO2 ABG pO2 66.6 L ABG HCO3 31.9 H ABG O2 Saturation 92.5 L ABG Base Excess 5.8 H ABG Hemoglobin 13.3 L Oxyhemoglobin 90.6 L Sodium Potassium Chloride 97.2 L Carbon Dioxide BUN 61 H Creatinine 1.8 H Glucose POC Glucose Uric Acid Calcium Phosphorus Magnesium Iron TIBC AST ALT Total Creatine Kinase CK-MB (CK-2) 5.2 H Troponin T 0.067 H D NT-Pro-B Natriuret Pep Total Protein Albumin Triglycerides HDL Cholesterol Folate Urine WBC (Auto) Urine Creatinine Urine Total Protein Vancomycin Trough 05/02/19 05/03/19 05/03/19 20:39 04:35 05:05 WBC 11.8 H RBC Hgb Hct MCV MCH 27 L MCHC 31 L RDW 17.2 H Plt Count Lymph % (Auto) [place] % (Auto) Eos % (Auto) Lymph # [place] # Eos # Seg Neutrophils % Seg Neuts % (Manual) Lymphocytes % (Manual) Monocytes % (Manual) Eosinophils % (Manual) Nucleated RBC % Seg Neutrophils # Seg Neutrophils # Man Lymphocytes # (Manual) Monocytes # (Manual) Eosinophils # (Manual) PT INR APTT Fibrinogen POC ABG pH ABG pH POC ABG pCO2 53.6 H 54.0 H POC ABG pO2 55 L 63 L ABG pO2 ABG HCO3 ABG O2 Saturation ABG Base Excess ABG Hemoglobin Oxyhemoglobin Sodium Potassium Chloride Carbon Dioxide BUN Creatinine Glucose POC Glucose Uric Acid Calcium Phosphorus Magnesium Iron TIBC AST ALT Total Creatine Kinase CK-MB (CK-2) Troponin T NT-Pro-B Natriuret Pep Total Protein Albumin Triglycerides HDL Cholesterol Folate Urine WBC (Auto) Urine Creatinine Urine Total Protein Vancomycin Trough 05/03/19 05/03/19 05/03/19 05:05 10:55 16:48 WBC RBC Hgb Hct MCV MCH MCHC RDW Plt Count Lymph % (Auto) [place] % (Auto) Eos % (Auto) Lymph # [place] # Eos # Seg Neutrophils % Seg Neuts % (Manual) Lymphocytes % (Manual) Monocytes % (Manual) Eosinophils % (Manual) Nucleated RBC % Seg Neutrophils # Seg Neutrophils # Man Lymphocytes # (Manual) Monocytes # (Manual) Eosinophils # (Manual) PT INR APTT Fibrinogen POC ABG pH 7.604 H ABG pH POC ABG pCO2 POC ABG pO2 58 L ABG pO2 ABG HCO3 ABG O2 Saturation ABG Base Excess ABG Hemoglobin Oxyhemoglobin Sodium Potassium Chloride Carbon Dioxide BUN 52 H Creatinine 1.9 H Glucose 103 H POC Glucose Uric Acid Calcium Phosphorus Magnesium Iron TIBC AST ALT Total Creatine Kinase CK-MB (CK-2) Troponin T NT-Pro-B Natriuret Pep Total Protein Albumin Triglycerides HDL Cholesterol Folate Urine WBC (Auto) 33.0 H Urine Creatinine Urine Total Protein Vancomycin Trough 05/04/19 05/04/19 05/04/19 04:49 06:50 06:50 WBC 16.0 H RBC Hgb Hct MCV MCH 27 L MCHC 31 L RDW 17.8 H Plt Count Lymph % (Auto) [place] % (Auto) Eos % (Auto) Lymph # [place] # Eos # Seg Neutrophils % Seg Neuts % (Manual) Lymphocytes % (Manual) Monocytes % (Manual) Eosinophils % (Manual) Nucleated RBC % Seg Neutrophils # Seg Neutrophils # Man Lymphocytes # (Manual) Monocytes # (Manual) Eosinophils # (Manual) PT INR APTT Fibrinogen POC ABG pH 7.273 L ABG pH POC ABG pCO2 POC ABG pO2 ABG pO2 ABG HCO3 ABG O2 Saturation ABG Base Excess ABG Hemoglobin Oxyhemoglobin Sodium 148 H Potassium 5.5 H Chloride Carbon Dioxide BUN 53 H Creatinine 3.3 H D Glucose 106 H POC Glucose Uric Acid Calcium 8.3 L Phosphorus Magnesium Iron TIBC AST ALT Total Creatine Kinase CK-MB (CK-2) Troponin T NT-Pro-B Natriuret Pep Total Protein Albumin Triglycerides HDL Cholesterol Folate Urine WBC (Auto) Urine Creatinine Urine Total Protein Vancomycin Trough 05/05/19 05/05/19 05/05/19 00:05 04:30 05:00 WBC RBC Hgb Hct MCV MCH MCHC RDW Plt Count Lymph % (Auto) [place] % (Auto) Eos % (Auto) Lymph # [place] # Eos # Seg Neutrophils % Seg Neuts % (Manual) Lymphocytes % (Manual) Monocytes % (Manual) Eosinophils % (Manual) Nucleated RBC % Seg Neutrophils # Seg Neutrophils # Man Lymphocytes # (Manual) Monocytes # (Manual) Eosinophils # (Manual) PT INR APTT Fibrinogen POC ABG pH 7.225 L ABG pH POC ABG pCO2 > 70 H POC ABG pO2 ABG pO2 ABG HCO3 ABG O2 Saturation ABG Base Excess ABG Hemoglobin Oxyhemoglobin Sodium 151 H Potassium 5.1 H Chloride Carbon Dioxide BUN 64 H Creatinine 3.5 H Glucose 117 H POC Glucose 141 H Uric Acid Calcium 7.5 L Phosphorus Magnesium Iron TIBC AST 93 H ALT 65 H Total Creatine Kinase CK-MB (CK-2) Troponin T NT-Pro-B Natriuret Pep Total Protein Albumin 2.9 L Triglycerides HDL Cholesterol Folate Urine WBC (Auto) Urine Creatinine Urine Total Protein Vancomycin Trough 05/05/19 05/05/19 05/05/19 05:00 12:02 17:46 WBC 12.0 H RBC Hgb 11.3 L Hct MCV MCH 27 L MCHC 30 L RDW 18.4 H Plt Count Lymph % (Auto) 7.9 L [place] % (Auto) 10.2 H Eos % (Auto) Lymph # 1.0 L [place] # 1.2 H Eos # Seg Neutrophils % 80.8 H Seg Neuts % (Manual) Lymphocytes % (Manual) Monocytes % (Manual) Eosinophils % (Manual) Nucleated RBC % Seg Neutrophils # 9.7 H Seg Neutrophils # Man Lymphocytes # (Manual) Monocytes # (Manual) Eosinophils # (Manual) PT INR APTT Fibrinogen POC ABG pH ABG pH POC ABG pCO2 POC ABG pO2 ABG pO2 ABG HCO3 ABG O2 Saturation ABG Base Excess ABG Hemoglobin Oxyhemoglobin Sodium Potassium Chloride Carbon Dioxide BUN Creatinine Glucose POC Glucose 125 H 112 H Uric Acid Calcium Phosphorus Magnesium Iron TIBC AST ALT Total Creatine Kinase CK-MB (CK-2) Troponin T NT-Pro-B Natriuret Pep Total Protein Albumin Triglycerides HDL Cholesterol Folate Urine WBC (Auto) Urine Creatinine Urine Total Protein Vancomycin Trough 05/05/19 05/06/19 05/06/19 23:42 03:58 04:45 WBC 11.4 H RBC Hgb 10.7 L Hct 34.2 L MCV MCH 27 L MCHC 31 L RDW 16.9 H Plt Count Lymph % (Auto) [place] % (Auto) Eos % (Auto) Lymph # [place] # Eos # Seg Neutrophils % Seg Neuts % (Manual) Lymphocytes % (Manual) Monocytes % (Manual) Eosinophils % (Manual) Nucleated RBC % Seg Neutrophils # Seg Neutrophils # Man Lymphocytes # (Manual) Monocytes # (Manual) Eosinophils # (Manual) PT INR APTT Fibrinogen POC ABG pH ABG pH POC ABG pCO2 62.4 H POC ABG pO2 111 H ABG pO2 ABG HCO3 ABG O2 Saturation ABG Base Excess ABG Hemoglobin Oxyhemoglobin Sodium Potassium Chloride Carbon Dioxide BUN Creatinine Glucose POC Glucose 128 H Uric Acid Calcium Phosphorus Magnesium Iron TIBC AST ALT Total Creatine Kinase CK-MB (CK-2) Troponin T NT-Pro-B Natriuret Pep Total Protein Albumin Triglycerides HDL Cholesterol Folate Urine WBC (Auto) Urine Creatinine Urine Total Protein Vancomycin Trough 05/06/19 05/06/19 05/06/19 04:45 05:33 12:30 WBC RBC Hgb Hct MCV MCH MCHC RDW Plt Count Lymph % (Auto) [place] % (Auto) Eos % (Auto) Lymph # [place] # Eos # Seg Neutrophils % Seg Neuts % (Manual) Lymphocytes % (Manual) Monocytes % (Manual) Eosinophils % (Manual) Nucleated RBC % Seg Neutrophils # Seg Neutrophils # Man Lymphocytes # (Manual) Monocytes # (Manual) Eosinophils # (Manual) PT INR APTT Fibrinogen POC ABG pH ABG pH POC ABG pCO2 POC ABG pO2 ABG pO2 ABG HCO3 ABG O2 Saturation ABG Base Excess ABG Hemoglobin Oxyhemoglobin Sodium 149 H Potassium Chloride Carbon Dioxide 31 H BUN 67 H Creatinine 3.2 H Glucose 125 H POC Glucose 117 H 116 H Uric Acid Calcium 7.5 L Phosphorus Magnesium Iron TIBC AST ALT Total Creatine Kinase CK-MB (CK-2) Troponin T NT-Pro-B Natriuret Pep Total Protein Albumin Triglycerides HDL Cholesterol Folate Urine WBC (Auto) Urine Creatinine Urine Total Protein Vancomycin Trough 05/06/19 05/06/19 05/07/19 18:34 23:16 05:22 WBC RBC Hgb Hct MCV MCH MCHC RDW Plt Count Lymph % (Auto) [place] % (Auto) Eos % (Auto) Lymph # [place] # Eos # Seg Neutrophils % Seg Neuts % (Manual) Lymphocytes % (Manual) Monocytes % (Manual) Eosinophils % (Manual) Nucleated RBC % Seg Neutrophils # Seg Neutrophils # Man Lymphocytes # (Manual) Monocytes # (Manual) Eosinophils # (Manual) PT INR APTT Fibrinogen POC ABG pH ABG pH POC ABG pCO2 POC ABG pO2 ABG pO2 ABG HCO3 ABG O2 Saturation ABG Base Excess ABG Hemoglobin Oxyhemoglobin Sodium Potassium Chloride Carbon Dioxide BUN Creatinine Glucose POC Glucose 128 H 143 H 166 H Uric Acid Calcium Phosphorus Magnesium Iron TIBC AST ALT Total Creatine Kinase CK-MB (CK-2) Troponin T NT-Pro-B Natriuret Pep Total Protein Albumin Triglycerides HDL Cholesterol Folate Urine WBC (Auto) Urine Creatinine Urine Total Protein Vancomycin Trough 05/07/19 05/07/19 05/07/19 06:33 07:03 09:35 WBC RBC Hgb Hct MCV MCH MCHC RDW Plt Count Lymph % (Auto) [place] % (Auto) Eos % (Auto) Lymph # [place] # Eos # Seg Neutrophils % Seg Neuts % (Manual) Lymphocytes % (Manual) Monocytes % (Manual) Eosinophils % (Manual) Nucleated RBC % Seg Neutrophils # Seg Neutrophils # Man Lymphocytes # (Manual) Monocytes # (Manual) Eosinophils # (Manual) PT INR APTT Fibrinogen POC ABG pH 7.263 L 7.288 L ABG pH POC ABG pCO2 POC ABG pO2 51 L 56 L ABG pO2 ABG HCO3 ABG O2 Saturation ABG Base Excess ABG Hemoglobin Oxyhemoglobin Sodium Potassium Chloride Carbon Dioxide BUN 76 H Creatinine 3.2 H Glucose 147 H POC Glucose Uric Acid Calcium 7.9 L Phosphorus Magnesium Iron TIBC AST ALT Total Creatine Kinase CK-MB (CK-2) Troponin T NT-Pro-B Natriuret Pep Total Protein Albumin Triglycerides HDL Cholesterol Folate Urine WBC (Auto) Urine Creatinine Urine Total Protein Vancomycin Trough 05/07/19 05/07/19 05/07/19 09:35 12:17 13:45 WBC 13.4 H RBC Hgb 11.6 L Hct MCV MCH 27 L MCHC 31 L RDW 17.5 H Plt Count Lymph % (Auto) [place] % (Auto) Eos % (Auto) Lymph # [place] # Eos # Seg Neutrophils % Seg Neuts % (Manual) Lymphocytes % (Manual) Monocytes % (Manual) Eosinophils % (Manual) Nucleated RBC % Seg Neutrophils # Seg Neutrophils # Man Lymphocytes # (Manual) Monocytes # (Manual) Eosinophils # (Manual) PT INR APTT Fibrinogen POC ABG pH ABG pH POC ABG pCO2 POC ABG pO2 ABG pO2 ABG HCO3 ABG O2 Saturation ABG Base Excess ABG Hemoglobin Oxyhemoglobin Sodium Potassium Chloride Carbon Dioxide BUN Creatinine Glucose POC Glucose 130 H Uric Acid 18.0 H Calcium Phosphorus Magnesium Iron TIBC AST ALT Total Creatine Kinase CK-MB (CK-2) Troponin T NT-Pro-B Natriuret Pep Total Protein Albumin Triglycerides HDL Cholesterol Folate Urine WBC (Auto) Urine Creatinine Urine Total Protein Vancomycin Trough 05/07/19 05/07/19 05/08/19 17:39 22:40 05:06 WBC RBC Hgb Hct MCV MCH MCHC RDW Plt Count Lymph % (Auto) [place] % (Auto) Eos % (Auto) Lymph # [place] # Eos # Seg Neutrophils % Seg Neuts % (Manual) Lymphocytes % (Manual) Monocytes % (Manual) Eosinophils % (Manual) Nucleated RBC % Seg Neutrophils # Seg Neutrophils # Man Lymphocytes # (Manual) Monocytes # (Manual) Eosinophils # (Manual) PT INR APTT Fibrinogen POC ABG pH ABG pH POC ABG pCO2 POC ABG pO2 ABG pO2 ABG HCO3 ABG O2 Saturation ABG Base Excess ABG Hemoglobin Oxyhemoglobin Sodium Potassium Chloride Carbon Dioxide BUN Creatinine Glucose POC Glucose 116 H 148 H Uric Acid Calcium Phosphorus Magnesium Iron TIBC AST ALT Total Creatine Kinase CK-MB (CK-2) Troponin T NT-Pro-B Natriuret Pep Total Protein Albumin Triglycerides HDL Cholesterol Folate Urine WBC (Auto) Urine Creatinine 292.8 H Urine Total Protein 269 H Vancomycin Trough 05/08/19 05/08/19 05/08/19 05:32 11:28 13:48 WBC RBC Hgb Hct MCV MCH MCHC RDW Plt Count Lymph % (Auto) [place] % (Auto) Eos % (Auto) Lymph # [place] # Eos # Seg Neutrophils % Seg Neuts % (Manual) Lymphocytes % (Manual) Monocytes % (Manual) Eosinophils % (Manual) Nucleated RBC % Seg Neutrophils # Seg Neutrophils # Man Lymphocytes # (Manual) Monocytes # (Manual) Eosinophils # (Manual) PT INR APTT Fibrinogen POC ABG pH ABG pH POC ABG pCO2 45.4 H POC ABG pO2 64 L ABG pO2 ABG HCO3 ABG O2 Saturation ABG Base Excess ABG Hemoglobin Oxyhemoglobin Sodium Potassium Chloride Carbon Dioxide BUN 73 H Creatinine 2.7 H Glucose 127 H POC Glucose 107 H Uric Acid Calcium 7.6 L Phosphorus Magnesium Iron TIBC AST ALT Total Creatine Kinase CK-MB (CK-2) Troponin T NT-Pro-B Natriuret Pep Total Protein Albumin Triglycerides HDL Cholesterol Folate Urine WBC (Auto) Urine Creatinine Urine Total Protein Vancomycin Trough 05/08/19 05/09/19 05/09/19 17:48 04:50 04:53 WBC RBC 3.07 L Hgb 8.5 L D Hct 29.3 L D MCV 96 H MCH MCHC 29 L RDW 18.1 H Plt Count Lymph % (Auto) [place] % (Auto) Eos % (Auto) Lymph # [place] # Eos # Seg Neutrophils % Seg Neuts % (Manual) Lymphocytes % (Manual) Monocytes % (Manual) Eosinophils % (Manual) Nucleated RBC % Seg Neutrophils # Seg Neutrophils # Man Lymphocytes # (Manual) Monocytes # (Manual) Eosinophils # (Manual) PT INR APTT Fibrinogen POC ABG pH 7.316 L ABG pH POC ABG pCO2 66.0 H POC ABG pO2 69 L ABG pO2 ABG HCO3 ABG O2 Saturation ABG Base Excess ABG Hemoglobin Oxyhemoglobin Sodium Potassium Chloride Carbon Dioxide BUN Creatinine Glucose POC Glucose 155 H Uric Acid Calcium Phosphorus Magnesium Iron TIBC AST ALT Total Creatine Kinase CK-MB (CK-2) Troponin T NT-Pro-B Natriuret Pep Total Protein Albumin Triglycerides HDL Cholesterol Folate Urine WBC (Auto) Urine Creatinine Urine Total Protein Vancomycin Trough 05/09/19 05/09/19 05/09/19 05:46 07:24 12:10 WBC RBC Hgb Hct MCV MCH MCHC RDW Plt Count Lymph % (Auto) [place] % (Auto) Eos % (Auto) Lymph # [place] # Eos # Seg Neutrophils % Seg Neuts % (Manual) Lymphocytes % (Manual) Monocytes % (Manual) Eosinophils % (Manual) Nucleated RBC % Seg Neutrophils # Seg Neutrophils # Man Lymphocytes # (Manual) Monocytes # (Manual) Eosinophils # (Manual) PT INR APTT Fibrinogen POC ABG pH ABG pH POC ABG pCO2 POC ABG pO2 ABG pO2 ABG HCO3 ABG O2 Saturation ABG Base Excess ABG Hemoglobin Oxyhemoglobin Sodium Potassium Chloride Carbon Dioxide BUN 73 H Creatinine 2.4 H Glucose 153 H POC Glucose 123 H 148 H Uric Acid Calcium 8.2 L Phosphorus Magnesium Iron TIBC AST 45 H ALT Total Creatine Kinase CK-MB (CK-2) Troponin T NT-Pro-B Natriuret Pep Total Protein 6.0 L Albumin 1.9 L Triglycerides HDL Cholesterol Folate Urine WBC (Auto) Urine Creatinine Urine Total Protein Vancomycin Trough 05/09/19 05/09/19 05/10/19 18:23 23:26 04:52 WBC RBC Hgb Hct MCV MCH MCHC RDW Plt Count Lymph % (Auto) [place] % (Auto) Eos % (Auto) Lymph # [place] # Eos # Seg Neutrophils % Seg Neuts % (Manual) Lymphocytes % (Manual) Monocytes % (Manual) Eosinophils % (Manual) Nucleated RBC % Seg Neutrophils # Seg Neutrophils # Man Lymphocytes # (Manual) Monocytes # (Manual) Eosinophils # (Manual) PT INR APTT Fibrinogen POC ABG pH 7.305 L ABG pH POC ABG pCO2 62.6 H POC ABG pO2 ABG pO2 ABG HCO3 ABG O2 Saturation ABG Base Excess ABG Hemoglobin Oxyhemoglobin Sodium Potassium Chloride Carbon Dioxide BUN Creatinine Glucose POC Glucose 147 H 121 H Uric Acid Calcium Phosphorus Magnesium Iron TIBC AST ALT Total Creatine Kinase CK-MB (CK-2) Troponin T NT-Pro-B Natriuret Pep Total Protein Albumin Triglycerides HDL Cholesterol Folate Urine WBC (Auto) Urine Creatinine Urine Total Protein Vancomycin Trough 05/10/19 05/10/19 05/10/19 05:00 05:00 05:50 WBC RBC Hgb 10.3 L Hct 33.7 L MCV MCH 27 L MCHC 31 L RDW 17.0 H Plt Count Lymph % (Auto) [place] % (Auto) Eos % (Auto) Lymph # [place] # Eos # Seg Neutrophils % Seg Neuts % (Manual) Lymphocytes % (Manual) Monocytes % (Manual) Eosinophils % (Manual) Nucleated RBC % Seg Neutrophils # Seg Neutrophils # Man Lymphocytes # (Manual) Monocytes # (Manual) Eosinophils # (Manual) PT INR APTT Fibrinogen POC ABG pH ABG pH POC ABG pCO2 POC ABG pO2 ABG pO2 ABG HCO3 ABG O2 Saturation ABG Base Excess ABG Hemoglobin Oxyhemoglobin Sodium 147 H Potassium Chloride Carbon Dioxide BUN 70 H Creatinine 2.6 H Glucose 155 H POC Glucose 158 H Uric Acid Calcium 8.2 L Phosphorus Magnesium Iron TIBC AST ALT Total Creatine Kinase CK-MB (CK-2) Troponin T NT-Pro-B Natriuret Pep Total Protein 6.1 L Albumin 2.5 L Triglycerides HDL Cholesterol Folate Urine WBC (Auto) Urine Creatinine Urine Total Protein Vancomycin Trough 05/10/19 05/11/19 05/11/19 13:14 07:26 11:40 WBC RBC Hgb Hct MCV MCH MCHC RDW Plt Count Lymph % (Auto) [place] % (Auto) Eos % (Auto) Lymph # [place] # Eos # Seg Neutrophils % Seg Neuts % (Manual) Lymphocytes % (Manual) Monocytes % (Manual) Eosinophils % (Manual) Nucleated RBC % Seg Neutrophils # Seg Neutrophils # Man Lymphocytes # (Manual) Monocytes # (Manual) Eosinophils # (Manual) PT INR APTT Fibrinogen POC ABG pH ABG pH POC ABG pCO2 48.0 H POC ABG pO2 58 L ABG pO2 ABG HCO3 ABG O2 Saturation ABG Base Excess ABG Hemoglobin Oxyhemoglobin Sodium 147 H Potassium Chloride 107.2 H Carbon Dioxide BUN 67 H Creatinine 2.6 H Glucose 121 H POC Glucose 159 H Uric Acid Calcium Phosphorus Magnesium Iron TIBC AST ALT Total Creatine Kinase CK-MB (CK-2) Troponin T NT-Pro-B Natriuret Pep Total Protein Albumin Triglycerides HDL Cholesterol Folate Urine WBC (Auto) Urine Creatinine Urine Total Protein Vancomycin Trough 05/11/19 05/11/19 05/12/19 18:13 23:46 04:40 WBC RBC Hgb Hct MCV MCH MCHC RDW Plt Count Lymph % (Auto) [place] % (Auto) Eos % (Auto) Lymph # [place] # Eos # Seg Neutrophils % Seg Neuts % (Manual) Lymphocytes % (Manual) Monocytes % (Manual) Eosinophils % (Manual) Nucleated RBC % Seg Neutrophils # Seg Neutrophils # Man Lymphocytes # (Manual) Monocytes # (Manual) Eosinophils # (Manual) PT INR APTT Fibrinogen POC ABG pH ABG pH 7.264 L POC ABG pCO2 POC ABG pO2 ABG pO2 66.8 L ABG HCO3 31.0 H ABG O2 Saturation 92.0 L ABG Base Excess ABG Hemoglobin 10.3 L Oxyhemoglobin 90.1 L Sodium Potassium Chloride Carbon Dioxide BUN Creatinine Glucose POC Glucose 120 H 121 H Uric Acid Calcium Phosphorus Magnesium Iron TIBC AST ALT Total Creatine Kinase CK-MB (CK-2) Troponin T NT-Pro-B Natriuret Pep Total Protein Albumin Triglycerides HDL Cholesterol Folate Urine WBC (Auto) Urine Creatinine Urine Total Protein Vancomycin Trough 05/12/19 05/12/19 05/12/19 04:45 04:45 11:14 WBC RBC Hgb 10.2 L Hct 32.4 L MCV MCH MCHC 31 L RDW 17.2 H Plt Count Lymph % (Auto) [place] % (Auto) Eos % (Auto) Lymph # [place] # Eos # Seg Neutrophils % Seg Neuts % (Manual) Lymphocytes % (Manual) Monocytes % (Manual) Eosinophils % (Manual) Nucleated RBC % Seg Neutrophils # Seg Neutrophils # Man Lymphocytes # (Manual) Monocytes # (Manual) Eosinophils # (Manual) PT INR APTT Fibrinogen POC ABG pH 7.284 L ABG pH POC ABG pCO2 67.8 H POC ABG pO2 ABG pO2 ABG HCO3 ABG O2 Saturation ABG Base Excess ABG Hemoglobin Oxyhemoglobin Sodium Potassium Chloride Carbon Dioxide BUN 63 H Creatinine 2.4 H Glucose 110 H POC Glucose Uric Acid Calcium Phosphorus Magnesium Iron TIBC AST ALT Total Creatine Kinase CK-MB (CK-2) Troponin T NT-Pro-B Natriuret Pep Total Protein Albumin Triglycerides HDL Cholesterol Folate Urine WBC (Auto) Urine Creatinine Urine Total Protein Vancomycin Trough 05/12/19 05/12/19 05/13/19 11:44 23:11 04:30 WBC RBC Hgb Hct MCV MCH MCHC RDW Plt Count Lymph % (Auto) [place] % (Auto) Eos % (Auto) Lymph # [place] # Eos # Seg Neutrophils % Seg Neuts % (Manual) Lymphocytes % (Manual) Monocytes % (Manual) Eosinophils % (Manual) Nucleated RBC % Seg Neutrophils # Seg Neutrophils # Man Lymphocytes # (Manual) Monocytes # (Manual) Eosinophils # (Manual) PT INR APTT Fibrinogen POC ABG pH ABG pH 7.288 L POC ABG pCO2 POC ABG pO2 ABG pO2 109.7 H ABG HCO3 30.9 H ABG O2 Saturation ABG Base Excess 3.2 H ABG Hemoglobin 9.6 L Oxyhemoglobin Sodium Potassium Chloride Carbon Dioxide BUN Creatinine Glucose POC Glucose 126 H 147 H Uric Acid Calcium Phosphorus Magnesium Iron TIBC AST ALT Total Creatine Kinase CK-MB (CK-2) Troponin T NT-Pro-B Natriuret Pep Total Protein Albumin Triglycerides HDL Cholesterol Folate Urine WBC (Auto) Urine Creatinine Urine Total Protein Vancomycin Trough 05/13/19 05/13/19 05/14/19 06:27 11:58 04:00 WBC RBC 3.16 L Hgb 9.3 L Hct 27.9 L MCV MCH MCHC RDW 17.1 H Plt Count Lymph % (Auto) [place] % (Auto) Eos % (Auto) Lymph # [place] # Eos # Seg Neutrophils % Seg Neuts % (Manual) Lymphocytes % (Manual) Monocytes % (Manual) Eosinophils % (Manual) Nucleated RBC % Seg Neutrophils # Seg Neutrophils # Man Lymphocytes # (Manual) Monocytes # (Manual) Eosinophils # (Manual) PT INR APTT Fibrinogen POC ABG pH ABG pH POC ABG pCO2 POC ABG pO2 ABG pO2 ABG HCO3 ABG O2 Saturation ABG Base Excess ABG Hemoglobin Oxyhemoglobin Sodium Potassium Chloride Carbon Dioxide BUN Creatinine Glucose POC Glucose 113 H 130 H Uric Acid Calcium Phosphorus Magnesium Iron TIBC AST ALT Total Creatine Kinase CK-MB (CK-2) Troponin T NT-Pro-B Natriuret Pep Total Protein Albumin Triglycerides HDL Cholesterol Folate Urine WBC (Auto) Urine Creatinine Urine Total Protein Vancomycin Trough 05/14/19 05/14/19 05/14/19 04:00 04:34 05:32 WBC RBC Hgb Hct MCV MCH MCHC RDW Plt Count Lymph % (Auto) [place] % (Auto) Eos % (Auto) Lymph # [place] # Eos # Seg Neutrophils % Seg Neuts % (Manual) Lymphocytes % (Manual) Monocytes % (Manual) Eosinophils % (Manual) Nucleated RBC % Seg Neutrophils # Seg Neutrophils # Man Lymphocytes # (Manual) Monocytes # (Manual) Eosinophils # (Manual) PT INR APTT Fibrinogen POC ABG pH 7.328 L ABG pH POC ABG pCO2 61.7 H POC ABG pO2 ABG pO2 ABG HCO3 ABG O2 Saturation ABG Base Excess ABG Hemoglobin Oxyhemoglobin Sodium 135 L D Potassium Chloride Carbon Dioxide BUN 57 H Creatinine 2.2 H Glucose 115 H POC Glucose 115 H Uric Acid Calcium 8.1 L Phosphorus Magnesium Iron TIBC AST ALT Total Creatine Kinase CK-MB (CK-2) Troponin T NT-Pro-B Natriuret Pep Total Protein Albumin Triglycerides HDL Cholesterol Folate Urine WBC (Auto) Urine Creatinine Urine Total Protein Vancomycin Trough 05/14/19 05/15/19 05/15/19 12:11 05:10 05:24 WBC RBC Hgb Hct MCV MCH MCHC RDW Plt Count Lymph % (Auto) [place] % (Auto) Eos % (Auto) Lymph # [place] # Eos # Seg Neutrophils % Seg Neuts % (Manual) Lymphocytes % (Manual) Monocytes % (Manual) Eosinophils % (Manual) Nucleated RBC % Seg Neutrophils # Seg Neutrophils # Man Lymphocytes # (Manual) Monocytes # (Manual) Eosinophils # (Manual) PT INR APTT Fibrinogen POC ABG pH ABG pH 7.342 L POC ABG pCO2 POC ABG pO2 ABG pO2 79.1 L ABG HCO3 28.2 H ABG O2 Saturation ABG Base Excess ABG Hemoglobin 7.0 L Oxyhemoglobin 94.4 L Sodium Potassium Chloride Carbon Dioxide BUN Creatinine Glucose POC Glucose 110 H 116 H Uric Acid Calcium Phosphorus Magnesium Iron TIBC AST ALT Total Creatine Kinase CK-MB (CK-2) Troponin T NT-Pro-B Natriuret Pep Total Protein Albumin Triglycerides HDL Cholesterol Folate Urine WBC (Auto) Urine Creatinine Urine Total Protein Vancomycin Trough 05/15/19 05/15/19 05/16/19 09:00 18:12 04:50 WBC RBC Hgb Hct MCV MCH MCHC RDW Plt Count Lymph % (Auto) [place] % (Auto) Eos % (Auto) Lymph # [place] # Eos # Seg Neutrophils % Seg Neuts % (Manual) Lymphocytes % (Manual) Monocytes % (Manual) Eosinophils % (Manual) Nucleated RBC % Seg Neutrophils # Seg Neutrophils # Man Lymphocytes # (Manual) Monocytes # (Manual) Eosinophils # (Manual) PT INR APTT Fibrinogen POC ABG pH ABG pH 7.250 L POC ABG pCO2 POC ABG pO2 ABG pO2 76.4 L ABG HCO3 ABG O2 Saturation 94.6 L ABG Base Excess -3.1 L ABG Hemoglobin 9.7 L Oxyhemoglobin 92.4 L Sodium Potassium Chloride Carbon Dioxide BUN Creatinine Glucose POC Glucose 110 H Uric Acid Calcium Phosphorus Magnesium Iron TIBC AST ALT Total Creatine Kinase CK-MB (CK-2) Troponin T NT-Pro-B Natriuret Pep Total Protein Albumin Triglycerides HDL Cholesterol Folate Urine WBC (Auto) Urine Creatinine Urine Total Protein Vancomycin Trough 20.5 H 05/16/19 05/16/19 05/17/19 05:50 05:50 04:20 WBC RBC 3.36 L 3.44 L Hgb 9.4 L 9.3 L Hct 29.1 L 29.7 L MCV MCH 27 L MCHC 31 L RDW 17.6 H 17.6 H Plt Count Lymph % (Auto) [place] % (Auto) Eos % (Auto) Lymph # [place] # Eos # Seg Neutrophils % Seg Neuts % (Manual) 77.0 H Lymphocytes % (Manual) 5.0 L Monocytes % (Manual) Eosinophils % (Manual) 10.0 H Nucleated RBC % Seg Neutrophils # Seg Neutrophils # Man Lymphocytes # (Manual) 0.5 L Monocytes # (Manual) Eosinophils # (Manual) 0.9 H PT INR APTT Fibrinogen POC ABG pH ABG pH POC ABG pCO2 POC ABG pO2 ABG pO2 ABG HCO3 ABG O2 Saturation ABG Base Excess ABG Hemoglobin Oxyhemoglobin Sodium Potassium Chloride Carbon Dioxide BUN 83 H Creatinine 4.4 H D Glucose 118 H POC Glucose Uric Acid Calcium Phosphorus Magnesium Iron TIBC AST ALT Total Creatine Kinase CK-MB (CK-2) Troponin T NT-Pro-B Natriuret Pep Total Protein Albumin Triglycerides HDL Cholesterol Folate Urine WBC (Auto) Urine Creatinine Urine Total Protein Vancomycin Trough 05/17/19 05/17/19 05/18/19 04:30 Unknown 01:50 WBC RBC 3.49 L Hgb 9.4 L Hct 30.0 L MCV MCH 27 L MCHC 31 L RDW 17.8 H Plt Count Lymph % (Auto) 7.9 L [place] % (Auto) 15.4 H Eos % (Auto) 6.3 H Lymph # 0.7 L [place] # 1.4 H Eos # 0.6 H Seg Neutrophils % 70.2 H Seg Neuts % (Manual) Lymphocytes % (Manual) Monocytes % (Manual) Eosinophils % (Manual) Nucleated RBC % Seg Neutrophils # Seg Neutrophils # Man Lymphocytes # (Manual) Monocytes # (Manual) Eosinophils # (Manual) PT INR APTT Fibrinogen POC ABG pH ABG pH 7.272 L POC ABG pCO2 POC ABG pO2 ABG pO2 75.7 L ABG HCO3 ABG O2 Saturation 93.8 L ABG Base Excess -3.0 L ABG Hemoglobin 7.8 L Oxyhemoglobin 91.6 L Sodium Potassium 5.2 H Chloride Carbon Dioxide BUN 96 H Creatinine 5.7 H Glucose 112 H POC Glucose Uric Acid Calcium Phosphorus Magnesium Iron TIBC AST ALT Total Creatine Kinase CK-MB (CK-2) Troponin T NT-Pro-B Natriuret Pep Total Protein Albumin Triglycerides 173 H HDL Cholesterol Folate Urine WBC (Auto) Urine Creatinine Urine Total Protein Vancomycin Trough 05/18/19 05/18/19 05/18/19 01:50 04:41 05:24 WBC RBC Hgb Hct MCV MCH MCHC RDW Plt Count Lymph % (Auto) [place] % (Auto) Eos % (Auto) Lymph # [place] # Eos # Seg Neutrophils % Seg Neuts % (Manual) Lymphocytes % (Manual) Monocytes % (Manual) Eosinophils % (Manual) Nucleated RBC % Seg Neutrophils # Seg Neutrophils # Man Lymphocytes # (Manual) Monocytes # (Manual) Eosinophils # (Manual) PT INR APTT Fibrinogen POC ABG pH 7.260 L ABG pH POC ABG pCO2 54.9 H POC ABG pO2 ABG pO2 ABG HCO3 ABG O2 Saturation ABG Base Excess ABG Hemoglobin Oxyhemoglobin Sodium Potassium 5.6 H Chloride Carbon Dioxide BUN 104 H Creatinine 6.6 H Glucose 107 H POC Glucose 106 H Uric Acid Calcium Phosphorus Magnesium Iron TIBC AST ALT Total Creatine Kinase CK-MB (CK-2) Troponin T NT-Pro-B Natriuret Pep Total Protein Albumin Triglycerides HDL Cholesterol Folate Urine WBC (Auto) Urine Creatinine Urine Total Protein Vancomycin Trough 05/18/19 05/18/19 05/19/19 11:34 23:26 04:06 WBC RBC 3.22 L Hgb 8.8 L Hct 27.3 L MCV MCH 27 L MCHC RDW 17.5 H Plt Count Lymph % (Auto) [place] % (Auto) Eos % (Auto) Lymph # [place] # Eos # Seg Neutrophils % Seg Neuts % (Manual) 74.0 H Lymphocytes % (Manual) 4.0 L Monocytes % (Manual) 11.0 H Eosinophils % (Manual) 7.0 H Nucleated RBC % 1.0 H Seg Neutrophils # Seg Neutrophils # Man Lymphocytes # (Manual) 0.3 L Monocytes # (Manual) 0.9 H Eosinophils # (Manual) 0.6 H PT INR APTT Fibrinogen POC ABG pH ABG pH POC ABG pCO2 POC ABG pO2 ABG pO2 ABG HCO3 ABG O2 Saturation ABG Base Excess ABG Hemoglobin Oxyhemoglobin Sodium Potassium Chloride Carbon Dioxide BUN Creatinine Glucose POC Glucose 152 H 112 H Uric Acid Calcium Phosphorus Magnesium Iron TIBC AST ALT Total Creatine Kinase CK-MB (CK-2) Troponin T NT-Pro-B Natriuret Pep Total Protein Albumin Triglycerides HDL Cholesterol Folate Urine WBC (Auto) Urine Creatinine Urine Total Protein Vancomycin Trough 05/19/19 05/19/19 05/20/19 04:06 06:00 04:00 WBC RBC 3.40 L Hgb 9.2 L Hct 28.6 L MCV MCH 27 L MCHC RDW 17.6 H Plt Count Lymph % (Auto) [place] % (Auto) Eos % (Auto) Lymph # [place] # Eos # Seg Neutrophils % Seg Neuts % (Manual) Lymphocytes % (Manual) 11.0 L Monocytes % (Manual) Eosinophils % (Manual) 14.0 H Nucleated RBC % Seg Neutrophils # Seg Neutrophils # Man Lymphocytes # (Manual) 1.1 L Monocytes # (Manual) Eosinophils # (Manual) 1.4 H PT INR APTT Fibrinogen POC ABG pH ABG pH 7.315 L POC ABG pCO2 POC ABG pO2 ABG pO2 ABG HCO3 ABG O2 Saturation ABG Base Excess ABG Hemoglobin 6.7 L Oxyhemoglobin 94.1 L Sodium Potassium 5.2 H Chloride Carbon Dioxide 21 L BUN 110 H Creatinine 7.2 H Glucose POC Glucose Uric Acid Calcium 8.3 L Phosphorus Magnesium Iron TIBC AST ALT Total Creatine Kinase CK-MB (CK-2) Troponin T NT-Pro-B Natriuret Pep Total Protein Albumin Triglycerides HDL Cholesterol Folate Urine WBC (Auto) Urine Creatinine Urine Total Protein Vancomycin Trough 05/20/19 05/20/19 05/20/19 04:00 05:48 12:00 WBC RBC Hgb Hct MCV MCH MCHC RDW Plt Count Lymph % (Auto) [place] % (Auto) Eos % (Auto) Lymph # [place] # Eos # Seg Neutrophils % Seg Neuts % (Manual) Lymphocytes % (Manual) Monocytes % (Manual) Eosinophils % (Manual) Nucleated RBC % Seg Neutrophils # Seg Neutrophils # Man Lymphocytes # (Manual) Monocytes # (Manual) Eosinophils # (Manual) PT INR APTT Fibrinogen POC ABG pH ABG pH 7.281 L POC ABG pCO2 POC ABG pO2 ABG pO2 78.7 L ABG HCO3 ABG O2 Saturation 94.5 L ABG Base Excess -3.0 L ABG Hemoglobin 9.9 L Oxyhemoglobin 92.5 L Sodium 136 L Potassium 5.7 H Chloride 96.3 L Carbon Dioxide BUN 125 H Creatinine 8.3 H Glucose 106 H POC Glucose Uric Acid Calcium Phosphorus Magnesium Iron TIBC AST ALT Total Creatine Kinase CK-MB (CK-2) Troponin T NT-Pro-B Natriuret Pep Total Protein Albumin Triglycerides HDL Cholesterol Folate Urine WBC (Auto) 26.0 H Urine Creatinine Urine Total Protein Vancomycin Trough 05/21/19 05/21/19 05/21/19 04:33 05:20 Unknown WBC RBC 3.38 L Hgb 9.1 L Hct 28.5 L MCV MCH 27 L MCHC RDW 17.4 H Plt Count Lymph % (Auto) [place] % (Auto) Eos % (Auto) Lymph # [place] # Eos # Seg Neutrophils % Seg Neuts % (Manual) 71.0 H Lymphocytes % (Manual) 1.0 L Monocytes % (Manual) 11.0 H Eosinophils % (Manual) 6.0 H Nucleated RBC % Seg Neutrophils # Seg Neutrophils # Man Lymphocytes # (Manual) 0.1 L Monocytes # (Manual) 1.0 H Eosinophils # (Manual) 0.6 H PT INR APTT Fibrinogen POC ABG pH 7.315 L ABG pH POC ABG pCO2 57.8 H POC ABG pO2 68 L ABG pO2 ABG HCO3 ABG O2 Saturation ABG Base Excess ABG Hemoglobin Oxyhemoglobin Sodium Potassium Chloride 96.3 L Carbon Dioxide BUN 102 H Creatinine 7.0 H Glucose 103 H POC Glucose Uric Acid Calcium Phosphorus Magnesium Iron TIBC AST ALT Total Creatine Kinase CK-MB (CK-2) Troponin T NT-Pro-B Natriuret Pep Total Protein Albumin Triglycerides HDL Cholesterol Folate Urine WBC (Auto) Urine Creatinine Urine Total Protein Vancomycin Trough 05/22/19 05/22/19 05/22/19 03:54 06:25 06:25 WBC RBC 3.22 L Hgb 8.6 L Hct 27.0 L MCV MCH 27 L MCHC RDW 17.5 H Plt Count Lymph % (Auto) [place] % (Auto) 16.2 H Eos % (Auto) 10.8 H Lymph # [place] # 1.3 H Eos # 0.9 H Seg Neutrophils % Seg Neuts % (Manual) Lymphocytes % (Manual) 10.0 L Monocytes % (Manual) 13.0 H Eosinophils % (Manual) 8.0 H Nucleated RBC % Seg Neutrophils # Seg Neutrophils # Man Lymphocytes # (Manual) 0.9 L Monocytes # (Manual) 1.1 H Eosinophils # (Manual) 0.7 H PT INR APTT Fibrinogen POC ABG pH 7.313 L ABG pH POC ABG pCO2 55.0 H POC ABG pO2 ABG pO2 ABG HCO3 ABG O2 Saturation ABG Base Excess ABG Hemoglobin Oxyhemoglobin Sodium 135 L Potassium Chloride 94.3 L Carbon Dioxide BUN 117 H Creatinine 7.8 H Glucose POC Glucose Uric Acid Calcium 8.2 L Phosphorus Magnesium Iron TIBC AST ALT Total Creatine Kinase CK-MB (CK-2) Troponin T NT-Pro-B Natriuret Pep Total Protein Albumin Triglycerides HDL Cholesterol Folate Urine WBC (Auto) Urine Creatinine Urine Total Protein Vancomycin Trough 05/23/19 05/24/19 05/24/19 05:21 05:00 05:00 WBC RBC 3.18 L Hgb 8.5 L Hct 26.7 L MCV MCH 27 L MCHC RDW 17.9 H Plt Count Lymph % (Auto) [place] % (Auto) Eos % (Auto) Lymph # [place] # Eos # Seg Neutrophils % Seg Neuts % (Manual) Lymphocytes % (Manual) Monocytes % (Manual) Eosinophils % (Manual) Nucleated RBC % Seg Neutrophils # Seg Neutrophils # Man Lymphocytes # (Manual) Monocytes # (Manual) Eosinophils # (Manual) PT INR APTT Fibrinogen POC ABG pH ABG pH POC ABG pCO2 49.7 H POC ABG pO2 73 L ABG pO2 ABG HCO3 ABG O2 Saturation ABG Base Excess ABG Hemoglobin Oxyhemoglobin Sodium Potassium Chloride 95.7 L Carbon Dioxide BUN 97 H Creatinine 6.5 H Glucose POC Glucose Uric Acid Calcium 8.0 L Phosphorus Magnesium Iron TIBC AST ALT Total Creatine Kinase CK-MB (CK-2) Troponin T NT-Pro-B Natriuret Pep Total Protein Albumin Triglycerides HDL Cholesterol Folate Urine WBC (Auto) Urine Creatinine Urine Total Protein Vancomycin Trough 05/24/19 05/25/19 05/25/19 06:17 04:22 15:45 WBC RBC 2.98 L Hgb 8.1 L Hct 24.9 L MCV MCH 27 L MCHC RDW 17.8 H Plt Count Lymph % (Auto) [place] % (Auto) Eos % (Auto) Lymph # [place] # Eos # Seg Neutrophils % Seg Neuts % (Manual) Lymphocytes % (Manual) Monocytes % (Manual) Eosinophils % (Manual) Nucleated RBC % Seg Neutrophils # Seg Neutrophils # Man Lymphocytes # (Manual) Monocytes # (Manual) Eosinophils # (Manual) PT INR APTT Fibrinogen POC ABG pH 7.330 L 7.313 L ABG pH POC ABG pCO2 52.5 H 51.1 H POC ABG pO2 77 L ABG pO2 ABG HCO3 ABG O2 Saturation ABG Base Excess ABG Hemoglobin Oxyhemoglobin Sodium Potassium Chloride Carbon Dioxide BUN Creatinine Glucose POC Glucose Uric Acid Calcium Phosphorus Magnesium Iron TIBC AST ALT Total Creatine Kinase CK-MB (CK-2) Troponin T NT-Pro-B Natriuret Pep Total Protein Albumin Triglycerides HDL Cholesterol Folate Urine WBC (Auto) Urine Creatinine Urine Total Protein Vancomycin Trough 05/25/19 05/26/19 05/26/19 15:45 04:13 05:00 WBC RBC 3.10 L Hgb 8.4 L Hct 26.0 L MCV MCH 27 L MCHC RDW 17.4 H Plt Count Lymph % (Auto) [place] % (Auto) Eos % (Auto) Lymph # [place] # Eos # Seg Neutrophils % Seg Neuts % (Manual) Lymphocytes % (Manual) Monocytes % (Manual) Eosinophils % (Manual) Nucleated RBC % Seg Neutrophils # Seg Neutrophils # Man Lymphocytes # (Manual) Monocytes # (Manual) Eosinophils # (Manual) PT INR APTT Fibrinogen POC ABG pH 7.295 L ABG pH POC ABG pCO2 56.5 H POC ABG pO2 63 L ABG pO2 ABG HCO3 ABG O2 Saturation ABG Base Excess ABG Hemoglobin Oxyhemoglobin Sodium 136 L Potassium Chloride 96.8 L Carbon Dioxide BUN 83 H Creatinine 5.9 H Glucose POC Glucose Uric Acid Calcium 7.6 L Phosphorus Magnesium Iron TIBC AST ALT Total Creatine Kinase CK-MB (CK-2) Troponin T NT-Pro-B Natriuret Pep Total Protein Albumin Triglycerides HDL Cholesterol Folate Urine WBC (Auto) Urine Creatinine Urine Total Protein Vancomycin Trough 05/26/19 05/27/19 05/28/19 05:00 04:48 04:47 WBC RBC Hgb Hct MCV MCH MCHC RDW Plt Count Lymph % (Auto) [place] % (Auto) Eos % (Auto) Lymph # [place] # Eos # Seg Neutrophils % Seg Neuts % (Manual) Lymphocytes % (Manual) Monocytes % (Manual) Eosinophils % (Manual) Nucleated RBC % Seg Neutrophils # Seg Neutrophils # Man Lymphocytes # (Manual) Monocytes # (Manual) Eosinophils # (Manual) PT INR APTT Fibrinogen POC ABG pH 7.323 L ABG pH 7.284 L POC ABG pCO2 56.2 H POC ABG pO2 ABG pO2 71.6 L ABG HCO3 ABG O2 Saturation 92.0 L ABG Base Excess ABG Hemoglobin 7.7 L Oxyhemoglobin 89.9 L Sodium 136 L Potassium Chloride 95.3 L Carbon Dioxide BUN 96 H Creatinine 6.5 H Glucose 108 H POC Glucose Uric Acid Calcium 7.6 L Phosphorus Magnesium Iron TIBC AST ALT Total Creatine Kinase CK-MB (CK-2) Troponin T NT-Pro-B Natriuret Pep Total Protein Albumin Triglycerides HDL Cholesterol Folate Urine WBC (Auto) Urine Creatinine Urine Total Protein Vancomycin Trough 05/28/19 05/29/19 05/29/19 12:30 12:47 23:44 WBC RBC Hgb Hct MCV MCH MCHC RDW Plt Count Lymph % (Auto) [place] % (Auto) Eos % (Auto) Lymph # [place] # Eos # Seg Neutrophils % Seg Neuts % (Manual) Lymphocytes % (Manual) Monocytes % (Manual) Eosinophils % (Manual) Nucleated RBC % Seg Neutrophils # Seg Neutrophils # Man Lymphocytes # (Manual) Monocytes # (Manual) Eosinophils # (Manual) PT INR APTT Fibrinogen POC ABG pH ABG pH POC ABG pCO2 POC ABG pO2 ABG pO2 ABG HCO3 ABG O2 Saturation ABG Base Excess ABG Hemoglobin Oxyhemoglobin Sodium 135 L Potassium Chloride 95.3 L Carbon Dioxide BUN 82 H Creatinine 6.0 H Glucose POC Glucose 136 H 159 H Uric Acid Calcium 7.5 L Phosphorus Magnesium Iron TIBC AST ALT Total Creatine Kinase CK-MB (CK-2) Troponin T NT-Pro-B Natriuret Pep Total Protein Albumin Triglycerides HDL Cholesterol Folate Urine WBC (Auto) Urine Creatinine Urine Total Protein Vancomycin Trough 05/30/19 05/30/19 05/30/19 04:30 05:38 12:00 WBC RBC 3.01 L Hgb 8.2 L Hct 25.3 L MCV MCH 27 L MCHC RDW 17.5 H Plt Count Lymph % (Auto) [place] % (Auto) Eos % (Auto) Lymph # [place] # Eos # Seg Neutrophils % Seg Neuts % (Manual) 80.0 H Lymphocytes % (Manual) 10.0 L Monocytes % (Manual) Eosinophils % (Manual) Nucleated RBC % Seg Neutrophils # Seg Neutrophils # Man 8.0 H Lymphocytes # (Manual) 1.0 L Monocytes # (Manual) Eosinophils # (Manual) PT INR APTT Fibrinogen POC ABG pH ABG pH POC ABG pCO2 POC ABG pO2 73 L ABG pO2 ABG HCO3 ABG O2 Saturation ABG Base Excess ABG Hemoglobin Oxyhemoglobin Sodium Potassium Chloride Carbon Dioxide BUN Creatinine Glucose POC Glucose 166 H Uric Acid Calcium Phosphorus Magnesium Iron TIBC AST ALT Total Creatine Kinase CK-MB (CK-2) Troponin T NT-Pro-B Natriuret Pep Total Protein Albumin Triglycerides HDL Cholesterol Folate Urine WBC (Auto) Urine Creatinine Urine Total Protein Vancomycin Trough 05/30/19 05/31/19 05/31/19 23:45 04:07 13:04 WBC 14.3 H RBC 2.88 L Hgb 7.7 L Hct 23.9 L MCV 83 L MCH 27 L MCHC RDW 17.8 H Plt Count Lymph % (Auto) [place] % (Auto) Eos % (Auto) Lymph # [place] # Eos # Seg Neutrophils % Seg Neuts % (Manual) 83.0 H Lymphocytes % (Manual) 11.0 L Monocytes % (Manual) Eosinophils % (Manual) Nucleated RBC % Seg Neutrophils # Seg Neutrophils # Man 11.9 H Lymphocytes # (Manual) Monocytes # (Manual) 0.9 H Eosinophils # (Manual) PT INR APTT Fibrinogen POC ABG pH ABG pH POC ABG pCO2 47.4 H POC ABG pO2 ABG pO2 ABG HCO3 ABG O2 Saturation ABG Base Excess ABG Hemoglobin Oxyhemoglobin Sodium Potassium Chloride Carbon Dioxide BUN Creatinine Glucose POC Glucose 209 H Uric Acid Calcium Phosphorus Magnesium Iron TIBC AST ALT Total Creatine Kinase CK-MB (CK-2) Troponin T NT-Pro-B Natriuret Pep Total Protein Albumin Triglycerides HDL Cholesterol Folate Urine WBC (Auto) Urine Creatinine Urine Total Protein Vancomycin Trough 05/31/19 05/31/19 06/01/19 13:04 16:42 00:15 WBC RBC Hgb Hct MCV MCH MCHC RDW Plt Count Lymph % (Auto) [place] % (Auto) Eos % (Auto) Lymph # [place] # Eos # Seg Neutrophils % Seg Neuts % (Manual) Lymphocytes % (Manual) Monocytes % (Manual) Eosinophils % (Manual) Nucleated RBC % Seg Neutrophils # Seg Neutrophils # Man Lymphocytes # (Manual) Monocytes # (Manual) Eosinophils # (Manual) PT INR APTT Fibrinogen POC ABG pH ABG pH POC ABG pCO2 POC ABG pO2 ABG pO2 ABG HCO3 ABG O2 Saturation ABG Base Excess ABG Hemoglobin Oxyhemoglobin Sodium 129 L Potassium Chloride 88.6 L Carbon Dioxide 19 L BUN 117 H Creatinine 6.7 H Glucose 205 H POC Glucose 228 H 223 H Uric Acid Calcium 7.4 L Phosphorus 7.40 H Magnesium Iron TIBC AST 58 H ALT 149 H Total Creatine Kinase CK-MB (CK-2) Troponin T NT-Pro-B Natriuret Pep Total Protein 6.0 L Albumin 2.5 L Triglycerides HDL Cholesterol Folate Urine WBC (Auto) Urine Creatinine Urine Total Protein Vancomycin Trough 06/01/19 06/01/19 06/01/19 04:33 05:27 12:31 WBC RBC Hgb Hct MCV MCH MCHC RDW Plt Count Lymph % (Auto) [place] % (Auto) Eos % (Auto) Lymph # [place] # Eos # Seg Neutrophils % Seg Neuts % (Manual) Lymphocytes % (Manual) Monocytes % (Manual) Eosinophils % (Manual) Nucleated RBC % Seg Neutrophils # Seg Neutrophils # Man Lymphocytes # (Manual) Monocytes # (Manual) Eosinophils # (Manual) PT INR APTT Fibrinogen POC ABG pH ABG pH POC ABG pCO2 POC ABG pO2 ABG pO2 56.9 L ABG HCO3 ABG O2 Saturation 85.9 L ABG Base Excess ABG Hemoglobin 8.1 L Oxyhemoglobin 83.6 L Sodium Potassium Chloride Carbon Dioxide BUN Creatinine Glucose POC Glucose 183 H 217 H Uric Acid Calcium Phosphorus Magnesium Iron TIBC AST ALT Total Creatine Kinase CK-MB (CK-2) Troponin T NT-Pro-B Natriuret Pep Total Protein Albumin Triglycerides HDL Cholesterol Folate Urine WBC (Auto) Urine Creatinine Urine Total Protein Vancomycin Trough 06/01/19 06/02/19 06/02/19 18:20 00:00 05:33 WBC RBC Hgb Hct MCV MCH MCHC RDW Plt Count Lymph % (Auto) [place] % (Auto) Eos % (Auto) Lymph # [place] # Eos # Seg Neutrophils % Seg Neuts % (Manual) Lymphocytes % (Manual) Monocytes % (Manual) Eosinophils % (Manual) Nucleated RBC % Seg Neutrophils # Seg Neutrophils # Man Lymphocytes # (Manual) Monocytes # (Manual) Eosinophils # (Manual) PT INR APTT Fibrinogen POC ABG pH ABG pH POC ABG pCO2 POC ABG pO2 ABG pO2 ABG HCO3 ABG O2 Saturation ABG Base Excess ABG Hemoglobin Oxyhemoglobin Sodium Potassium Chloride Carbon Dioxide BUN Creatinine Glucose POC Glucose 265 H 279 H 259 H Uric Acid Calcium Phosphorus Magnesium Iron TIBC AST ALT Total Creatine Kinase CK-MB (CK-2) Troponin T NT-Pro-B Natriuret Pep Total Protein Albumin Triglycerides HDL Cholesterol Folate Urine WBC (Auto) Urine Creatinine Urine Total Protein Vancomycin Trough 06/02/19 06/02/19 06/02/19 11:06 11:06 11:42 WBC 13.1 H RBC 2.92 L Hgb 7.9 L Hct 24.4 L MCV MCH 27 L MCHC RDW 17.4 H Plt Count Lymph % (Auto) [place] % (Auto) Eos % (Auto) Lymph # [place] # Eos # Seg Neutrophils % Seg Neuts % (Manual) 78.0 H Lymphocytes % (Manual) 12.0 L Monocytes % (Manual) 10.0 H Eosinophils % (Manual) Nucleated RBC % Seg Neutrophils # Seg Neutrophils # Man 10.2 H Lymphocytes # (Manual) Monocytes # (Manual) 1.3 H Eosinophils # (Manual) PT INR APTT Fibrinogen POC ABG pH ABG pH POC ABG pCO2 POC ABG pO2 ABG pO2 ABG HCO3 ABG O2 Saturation ABG Base Excess ABG Hemoglobin Oxyhemoglobin Sodium 135 L Potassium Chloride 94.7 L Carbon Dioxide 21 L BUN 107 H Creatinine 4.5 H Glucose 286 H POC Glucose 263 H Uric Acid Calcium 7.9 L Phosphorus 6.30 H Magnesium Iron TIBC AST ALT 104 H Total Creatine Kinase CK-MB (CK-2) Troponin T NT-Pro-B Natriuret Pep Total Protein 6.0 L Albumin 2.7 L Triglycerides HDL Cholesterol Folate Urine WBC (Auto) Urine Creatinine Urine Total Protein Vancomycin Trough 06/02/19 06/02/19 06/03/19 18:17 23:55 05:30 WBC RBC Hgb Hct MCV MCH MCHC RDW Plt Count Lymph % (Auto) [place] % (Auto) Eos % (Auto) Lymph # [place] # Eos # Seg Neutrophils % Seg Neuts % (Manual) Lymphocytes % (Manual) Monocytes % (Manual) Eosinophils % (Manual) Nucleated RBC % Seg Neutrophils # Seg Neutrophils # Man Lymphocytes # (Manual) Monocytes # (Manual) Eosinophils # (Manual) PT INR APTT Fibrinogen POC ABG pH ABG pH POC ABG pCO2 POC ABG pO2 ABG pO2 ABG HCO3 ABG O2 Saturation ABG Base Excess ABG Hemoglobin Oxyhemoglobin Sodium Potassium Chloride 95.1 L Carbon Dioxide 21 L BUN 119 H Creatinine 4.1 H Glucose 330 H POC Glucose 276 H 244 H Uric Acid Calcium 8.1 L Phosphorus Magnesium Iron TIBC AST ALT 98 H Total Creatine Kinase CK-MB (CK-2) Troponin T NT-Pro-B Natriuret Pep Total Protein 5.8 L Albumin 2.8 L Triglycerides HDL Cholesterol Folate Urine WBC (Auto) Urine Creatinine Urine Total Protein Vancomycin Trough 06/03/19 06/03/19 06/03/19 05:30 06:04 09:42 WBC 12.8 H RBC 3.01 L Hgb 8.2 L Hct 25.4 L MCV MCH 27 L MCHC RDW 17.5 H Plt Count Lymph % (Auto) [place] % (Auto) Eos % (Auto) Lymph # [place] # Eos # Seg Neutrophils % Seg Neuts % (Manual) 78.0 H Lymphocytes % (Manual) 10.0 L Monocytes % (Manual) 12.0 H Eosinophils % (Manual) Nucleated RBC % Seg Neutrophils # Seg Neutrophils # Man 10.0 H Lymphocytes # (Manual) Monocytes # (Manual) 1.5 H Eosinophils # (Manual) PT INR APTT Fibrinogen POC ABG pH ABG pH POC ABG pCO2 POC ABG pO2 ABG pO2 ABG HCO3 ABG O2 Saturation ABG Base Excess ABG Hemoglobin Oxyhemoglobin Sodium Potassium Chloride Carbon Dioxide BUN 106 H Creatinine Glucose POC Glucose 254 H Uric Acid Calcium Phosphorus Magnesium Iron TIBC AST ALT Total Creatine Kinase CK-MB (CK-2) Troponin T NT-Pro-B Natriuret Pep Total Protein Albumin Triglycerides HDL Cholesterol Folate Urine WBC (Auto) Urine Creatinine Urine Total Protein Vancomycin Trough 06/03/19 06/03/19 06/03/19 12:52 17:25 23:37 WBC RBC Hgb Hct MCV MCH MCHC RDW Plt Count Lymph % (Auto) [place] % (Auto) Eos % (Auto) Lymph # [place] # Eos # Seg Neutrophils % Seg Neuts % (Manual) Lymphocytes % (Manual) Monocytes % (Manual) Eosinophils % (Manual) Nucleated RBC % Seg Neutrophils # Seg Neutrophils # Man Lymphocytes # (Manual) Monocytes # (Manual) Eosinophils # (Manual) PT INR APTT Fibrinogen POC ABG pH ABG pH POC ABG pCO2 POC ABG pO2 ABG pO2 ABG HCO3 ABG O2 Saturation ABG Base Excess ABG Hemoglobin Oxyhemoglobin Sodium Potassium Chloride Carbon Dioxide BUN Creatinine Glucose POC Glucose 274 H 285 H 310 H Uric Acid Calcium Phosphorus Magnesium Iron TIBC AST ALT Total Creatine Kinase CK-MB (CK-2) Troponin T NT-Pro-B Natriuret Pep Total Protein Albumin Triglycerides HDL Cholesterol Folate Urine WBC (Auto) Urine Creatinine Urine Total Protein Vancomycin Trough 06/04/19 06/04/19 06/04/19 04:57 05:03 11:50 WBC RBC Hgb Hct MCV MCH MCHC RDW Plt Count Lymph % (Auto) [place] % (Auto) Eos % (Auto) Lymph # [place] # Eos # Seg Neutrophils % Seg Neuts % (Manual) Lymphocytes % (Manual) Monocytes % (Manual) Eosinophils % (Manual) Nucleated RBC % Seg Neutrophils # Seg Neutrophils # Man Lymphocytes # (Manual) Monocytes # (Manual) Eosinophils # (Manual) PT INR APTT Fibrinogen POC ABG pH 7.488 H ABG pH POC ABG pCO2 POC ABG pO2 ABG pO2 ABG HCO3 ABG O2 Saturation ABG Base Excess ABG Hemoglobin Oxyhemoglobin Sodium Potassium Chloride Carbon Dioxide BUN Creatinine Glucose POC Glucose 275 H 279 H Uric Acid Calcium Phosphorus Magnesium Iron TIBC AST ALT Total Creatine Kinase CK-MB (CK-2) Troponin T NT-Pro-B Natriuret Pep Total Protein Albumin Triglycerides HDL Cholesterol Folate Urine WBC (Auto) Urine Creatinine Urine Total Protein Vancomycin Trough 06/04/19 06/04/19 06/04/19 18:32 22:03 23:55 WBC RBC Hgb Hct MCV MCH MCHC RDW Plt Count Lymph % (Auto) [place] % (Auto) Eos % (Auto) Lymph # [place] # Eos # Seg Neutrophils % Seg Neuts % (Manual) Lymphocytes % (Manual) Monocytes % (Manual) Eosinophils % (Manual) Nucleated RBC % Seg Neutrophils # Seg Neutrophils # Man Lymphocytes # (Manual) Monocytes # (Manual) Eosinophils # (Manual) PT INR APTT Fibrinogen POC ABG pH ABG pH POC ABG pCO2 POC ABG pO2 ABG pO2 ABG HCO3 ABG O2 Saturation ABG Base Excess ABG Hemoglobin Oxyhemoglobin Sodium Potassium Chloride Carbon Dioxide BUN Creatinine Glucose POC Glucose 267 H 307 H 292 H Uric Acid Calcium Phosphorus Magnesium Iron TIBC AST ALT Total Creatine Kinase CK-MB (CK-2) Troponin T NT-Pro-B Natriuret Pep Total Protein Albumin Triglycerides HDL Cholesterol Folate Urine WBC (Auto) Urine Creatinine Urine Total Protein Vancomycin Trough 06/05/19 06/05/19 06/05/19 03:52 06:41 12:29 WBC RBC Hgb Hct MCV MCH MCHC RDW Plt Count Lymph % (Auto) [place] % (Auto) Eos % (Auto) Lymph # [place] # Eos # Seg Neutrophils % Seg Neuts % (Manual) Lymphocytes % (Manual) Monocytes % (Manual) Eosinophils % (Manual) Nucleated RBC % Seg Neutrophils # Seg Neutrophils # Man Lymphocytes # (Manual) Monocytes # (Manual) Eosinophils # (Manual) PT INR APTT Fibrinogen POC ABG pH 7.462 H ABG pH POC ABG pCO2 POC ABG pO2 ABG pO2 ABG HCO3 ABG O2 Saturation ABG Base Excess ABG Hemoglobin Oxyhemoglobin Sodium Potassium Chloride Carbon Dioxide BUN Creatinine Glucose POC Glucose 369 H 265 H Uric Acid Calcium Phosphorus Magnesium Iron TIBC AST ALT Total Creatine Kinase CK-MB (CK-2) Troponin T NT-Pro-B Natriuret Pep Total Protein Albumin Triglycerides HDL Cholesterol Folate Urine WBC (Auto) Urine Creatinine Urine Total Protein Vancomycin Trough 06/05/19 06/05/19 06/05/19 18:20 21:42 23:21 WBC RBC Hgb Hct MCV MCH MCHC RDW Plt Count Lymph % (Auto) [place] % (Auto) Eos % (Auto) Lymph # [place] # Eos # Seg Neutrophils % Seg Neuts % (Manual) Lymphocytes % (Manual) Monocytes % (Manual) Eosinophils % (Manual) Nucleated RBC % Seg Neutrophils # Seg Neutrophils # Man Lymphocytes # (Manual) Monocytes # (Manual) Eosinophils # (Manual) PT INR APTT Fibrinogen POC ABG pH ABG pH POC ABG pCO2 POC ABG pO2 ABG pO2 ABG HCO3 ABG O2 Saturation ABG Base Excess ABG Hemoglobin Oxyhemoglobin Sodium Potassium Chloride Carbon Dioxide BUN Creatinine Glucose POC Glucose 249 H 246 H 274 H Uric Acid Calcium Phosphorus Magnesium Iron TIBC AST ALT Total Creatine Kinase CK-MB (CK-2) Troponin T NT-Pro-B Natriuret Pep Total Protein Albumin Triglycerides HDL Cholesterol Folate Urine WBC (Auto) Urine Creatinine Urine Total Protein Vancomycin Trough 06/06/19 06/06/19 06/06/19 04:00 05:49 11:34 WBC 18.1 H RBC 3.53 L Hgb 9.5 L Hct 30.3 L MCV MCH 27 L MCHC 31 L RDW 19.5 H Plt Count Lymph % (Auto) [place] % (Auto) Eos % (Auto) Lymph # [place] # Eos # Seg Neutrophils % Seg Neuts % (Manual) 87.0 H Lymphocytes % (Manual) 3.0 L Monocytes % (Manual) 8.0 H Eosinophils % (Manual) Nucleated RBC % Seg Neutrophils # Seg Neutrophils # Man 15.7 H Lymphocytes # (Manual) 0.5 L Monocytes # (Manual) 1.4 H Eosinophils # (Manual) PT INR APTT Fibrinogen POC ABG pH ABG pH 7.472 H POC ABG pCO2 POC ABG pO2 ABG pO2 76.4 L ABG HCO3 28.1 H ABG O2 Saturation ABG Base Excess 4.3 H ABG Hemoglobin 12.5 L Oxyhemoglobin 93.8 L Sodium Potassium Chloride Carbon Dioxide BUN Creatinine Glucose POC Glucose 340 H Uric Acid Calcium Phosphorus Magnesium Iron TIBC AST ALT Total Creatine Kinase CK-MB (CK-2) Troponin T NT-Pro-B Natriuret Pep Total Protein Albumin Triglycerides HDL Cholesterol Folate Urine WBC (Auto) Urine Creatinine Urine Total Protein Vancomycin Trough 06/06/19 06/06/19 06/06/19 11:34 12:11 18:10 WBC RBC Hgb Hct MCV MCH MCHC RDW Plt Count Lymph % (Auto) [place] % (Auto) Eos % (Auto) Lymph # [place] # Eos # Seg Neutrophils % Seg Neuts % (Manual) Lymphocytes % (Manual) Monocytes % (Manual) Eosinophils % (Manual) Nucleated RBC % Seg Neutrophils # Seg Neutrophils # Man Lymphocytes # (Manual) Monocytes # (Manual) Eosinophils # (Manual) PT INR APTT Fibrinogen POC ABG pH ABG pH POC ABG pCO2 POC ABG pO2 ABG pO2 ABG HCO3 ABG O2 Saturation ABG Base Excess ABG Hemoglobin Oxyhemoglobin Sodium Potassium Chloride Carbon Dioxide BUN 70 H Creatinine Glucose 310 H POC Glucose 283 H 301 H Uric Acid Calcium 8.3 L Phosphorus 4.60 H Magnesium Iron TIBC AST ALT 75 H Total Creatine Kinase CK-MB (CK-2) Troponin T NT-Pro-B Natriuret Pep Total Protein 5.6 L Albumin 2.9 L Triglycerides HDL Cholesterol Folate Urine WBC (Auto) Urine Creatinine Urine Total Protein Vancomycin Trough 06/06/19 06/06/19 06/07/19 22:21 23:16 04:30 WBC RBC Hgb Hct MCV MCH MCHC RDW Plt Count Lymph % (Auto) [place] % (Auto) Eos % (Auto) Lymph # [place] # Eos # Seg Neutrophils % Seg Neuts % (Manual) Lymphocytes % (Manual) Monocytes % (Manual) Eosinophils % (Manual) Nucleated RBC % Seg Neutrophils # Seg Neutrophils # Man Lymphocytes # (Manual) Monocytes # (Manual) Eosinophils # (Manual) PT INR APTT Fibrinogen POC ABG pH ABG pH 7.480 H POC ABG pCO2 POC ABG pO2 ABG pO2 77.0 L ABG HCO3 27.2 H ABG O2 Saturation ABG Base Excess 3.5 H ABG Hemoglobin 7.1 L Oxyhemoglobin 94.2 L Sodium Potassium Chloride Carbon Dioxide BUN Creatinine Glucose POC Glucose 289 H 343 H Uric Acid Calcium Phosphorus Magnesium Iron TIBC AST ALT Total Creatine Kinase CK-MB (CK-2) Troponin T NT-Pro-B Natriuret Pep Total Protein Albumin Triglycerides HDL Cholesterol Folate Urine WBC (Auto) Urine Creatinine Urine Total Protein Vancomycin Trough 06/07/19 06/07/19 06/07/19 05:15 12:52 18:41 WBC RBC Hgb Hct MCV MCH MCHC RDW Plt Count Lymph % (Auto) [place] % (Auto) Eos % (Auto) Lymph # [place] # Eos # Seg Neutrophils % Seg Neuts % (Manual) Lymphocytes % (Manual) Monocytes % (Manual) Eosinophils % (Manual) Nucleated RBC % Seg Neutrophils # Seg Neutrophils # Man Lymphocytes # (Manual) Monocytes # (Manual) Eosinophils # (Manual) PT INR APTT Fibrinogen POC ABG pH ABG pH POC ABG pCO2 POC ABG pO2 ABG pO2 ABG HCO3 ABG O2 Saturation ABG Base Excess ABG Hemoglobin Oxyhemoglobin Sodium Potassium Chloride Carbon Dioxide BUN Creatinine Glucose POC Glucose 307 H 226 H 187 H Uric Acid Calcium Phosphorus Magnesium Iron TIBC AST ALT Total Creatine Kinase CK-MB (CK-2) Troponin T NT-Pro-B Natriuret Pep Total Protein Albumin Triglycerides HDL Cholesterol Folate Urine WBC (Auto) Urine Creatinine Urine Total Protein Vancomycin Trough 06/07/19 06/07/19 06/08/19 22:54 23:46 04:20 WBC 16.0 H RBC Hgb 10.0 L Hct 32.1 L MCV MCH 27 L MCHC 31 L RDW 19.4 H Plt Count Lymph % (Auto) [place] % (Auto) Eos % (Auto) Lymph # [place] # Eos # Seg Neutrophils % Seg Neuts % (Manual) 87.0 H Lymphocytes % (Manual) 7.0 L Monocytes % (Manual) Eosinophils % (Manual) Nucleated RBC % Seg Neutrophils # Seg Neutrophils # Man 13.9 H Lymphocytes # (Manual) 1.1 L Monocytes # (Manual) 1.0 H Eosinophils # (Manual) PT INR APTT Fibrinogen POC ABG pH ABG pH POC ABG pCO2 POC ABG pO2 ABG pO2 ABG HCO3 ABG O2 Saturation ABG Base Excess ABG Hemoglobin Oxyhemoglobin Sodium Potassium Chloride Carbon Dioxide BUN Creatinine Glucose POC Glucose 199 H 172 H Uric Acid Calcium Phosphorus Magnesium Iron TIBC AST ALT Total Creatine Kinase CK-MB (CK-2) Troponin T NT-Pro-B Natriuret Pep Total Protein Albumin Triglycerides HDL Cholesterol Folate Urine WBC (Auto) Urine Creatinine Urine Total Protein Vancomycin Trough 06/08/19 06/08/19 06/08/19 04:20 05:15 11:31 WBC RBC Hgb Hct MCV MCH MCHC RDW Plt Count Lymph % (Auto) [place] % (Auto) Eos % (Auto) Lymph # [place] # Eos # Seg Neutrophils % Seg Neuts % (Manual) Lymphocytes % (Manual) Monocytes % (Manual) Eosinophils % (Manual) Nucleated RBC % Seg Neutrophils # Seg Neutrophils # Man Lymphocytes # (Manual) Monocytes # (Manual) Eosinophils # (Manual) PT INR APTT Fibrinogen POC ABG pH ABG pH POC ABG pCO2 POC ABG pO2 ABG pO2 ABG HCO3 ABG O2 Saturation ABG Base Excess ABG Hemoglobin Oxyhemoglobin Sodium 146 H D Potassium Chloride Carbon Dioxide BUN 77 H Creatinine Glucose 205 H POC Glucose 209 H 181 H Uric Acid Calcium Phosphorus Magnesium Iron TIBC AST ALT 66 H Total Creatine Kinase CK-MB (CK-2) Troponin T NT-Pro-B Natriuret Pep Total Protein 5.5 L Albumin 2.9 L Triglycerides HDL Cholesterol Folate Urine WBC (Auto) Urine Creatinine Urine Total Protein Vancomycin Trough 06/08/19 06/08/19 06/09/19 17:28 23:24 05:20 WBC RBC Hgb Hct MCV MCH MCHC RDW Plt Count Lymph % (Auto) [place] % (Auto) Eos % (Auto) Lymph # [place] # Eos # Seg Neutrophils % Seg Neuts % (Manual) Lymphocytes % (Manual) Monocytes % (Manual) Eosinophils % (Manual) Nucleated RBC % Seg Neutrophils # Seg Neutrophils # Man Lymphocytes # (Manual) Monocytes # (Manual) Eosinophils # (Manual) PT INR APTT Fibrinogen POC ABG pH ABG pH POC ABG pCO2 POC ABG pO2 ABG pO2 ABG HCO3 ABG O2 Saturation ABG Base Excess ABG Hemoglobin Oxyhemoglobin Sodium Potassium Chloride Carbon Dioxide BUN Creatinine Glucose POC Glucose 215 H 200 H 173 H Uric Acid Calcium Phosphorus Magnesium Iron TIBC AST ALT Total Creatine Kinase CK-MB (CK-2) Troponin T NT-Pro-B Natriuret Pep Total Protein Albumin Triglycerides HDL Cholesterol Folate Urine WBC (Auto) Urine Creatinine Urine Total Protein Vancomycin Trough 06/09/19 06/09/19 06/09/19 12:07 18:32 23:51 WBC RBC Hgb Hct MCV MCH MCHC RDW Plt Count Lymph % (Auto) [place] % (Auto) Eos % (Auto) Lymph # [place] # Eos # Seg Neutrophils % Seg Neuts % (Manual) Lymphocytes % (Manual) Monocytes % (Manual) Eosinophils % (Manual) Nucleated RBC % Seg Neutrophils # Seg Neutrophils # Man Lymphocytes # (Manual) Monocytes # (Manual) Eosinophils # (Manual) PT INR APTT Fibrinogen POC ABG pH ABG pH POC ABG pCO2 POC ABG pO2 ABG pO2 ABG HCO3 ABG O2 Saturation ABG Base Excess ABG Hemoglobin Oxyhemoglobin Sodium Potassium Chloride Carbon Dioxide BUN Creatinine Glucose POC Glucose 117 H 169 H 147 H Uric Acid Calcium Phosphorus Magnesium Iron TIBC AST ALT Total Creatine Kinase CK-MB (CK-2) Troponin T NT-Pro-B Natriuret Pep Total Protein Albumin Triglycerides HDL Cholesterol Folate Urine WBC (Auto) Urine Creatinine Urine Total Protein Vancomycin Trough 06/10/19 06/10/19 06/10/19 05:45 05:45 06:01 WBC 14.6 H RBC Hgb 9.9 L Hct 32.2 L MCV MCH 27 L MCHC 31 L RDW 19.6 H Plt Count Lymph % (Auto) 10.5 L [place] % (Auto) 9.4 H Eos % (Auto) Lymph # [place] # 1.4 H Eos # Seg Neutrophils % 79.9 H Seg Neuts % (Manual) Lymphocytes % (Manual) Monocytes % (Manual) Eosinophils % (Manual) Nucleated RBC % Seg Neutrophils # 11.7 H Seg Neutrophils # Man Lymphocytes # (Manual) Monocytes # (Manual) Eosinophils # (Manual) PT INR APTT Fibrinogen POC ABG pH ABG pH POC ABG pCO2 POC ABG pO2 ABG pO2 ABG HCO3 ABG O2 Saturation ABG Base Excess ABG Hemoglobin Oxyhemoglobin Sodium 150 H Potassium Chloride 108.3 H Carbon Dioxide BUN 49 H Creatinine Glucose 172 H POC Glucose 165 H Uric Acid Calcium Phosphorus Magnesium 1.40 L Iron TIBC AST ALT Total Creatine Kinase CK-MB (CK-2) Troponin T NT-Pro-B Natriuret Pep Total Protein Albumin Triglycerides HDL Cholesterol Folate Urine WBC (Auto) Urine Creatinine Urine Total Protein Vancomycin Trough 06/10/19 06/10/19 06/11/19 12:11 18:30 00:02 WBC RBC Hgb Hct MCV MCH MCHC RDW Plt Count Lymph % (Auto) [place] % (Auto) Eos % (Auto) Lymph # [place] # Eos # Seg Neutrophils % Seg Neuts % (Manual) Lymphocytes % (Manual) Monocytes % (Manual) Eosinophils % (Manual) Nucleated RBC % Seg Neutrophils # Seg Neutrophils # Man Lymphocytes # (Manual) Monocytes # (Manual) Eosinophils # (Manual) PT INR APTT Fibrinogen POC ABG pH ABG pH POC ABG pCO2 POC ABG pO2 ABG pO2 ABG HCO3 ABG O2 Saturation ABG Base Excess ABG Hemoglobin Oxyhemoglobin Sodium Potassium Chloride Carbon Dioxide BUN Creatinine Glucose POC Glucose 150 H 154 H 130 H Uric Acid Calcium Phosphorus Magnesium Iron TIBC AST ALT Total Creatine Kinase CK-MB (CK-2) Troponin T NT-Pro-B Natriuret Pep Total Protein Albumin Triglycerides HDL Cholesterol Folate Urine WBC (Auto) Urine Creatinine Urine Total Protein Vancomycin Trough 06/11/19 06/11/19 06/11/19 05:33 08:34 12:33 WBC RBC Hgb Hct MCV MCH MCHC RDW Plt Count Lymph % (Auto) [place] % (Auto) Eos % (Auto) Lymph # [place] # Eos # Seg Neutrophils % Seg Neuts % (Manual) Lymphocytes % (Manual) Monocytes % (Manual) Eosinophils % (Manual) Nucleated RBC % Seg Neutrophils # Seg Neutrophils # Man Lymphocytes # (Manual) Monocytes # (Manual) Eosinophils # (Manual) PT INR APTT Fibrinogen POC ABG pH ABG pH POC ABG pCO2 POC ABG pO2 ABG pO2 ABG HCO3 ABG O2 Saturation ABG Base Excess ABG Hemoglobin Oxyhemoglobin Sodium 154 H Potassium Chloride 111.6 H Carbon Dioxide BUN 41 H Creatinine Glucose 147 H POC Glucose 183 H 185 H Uric Acid Calcium Phosphorus Magnesium Iron TIBC AST ALT Total Creatine Kinase CK-MB (CK-2) Troponin T NT-Pro-B Natriuret Pep Total Protein Albumin Triglycerides HDL Cholesterol Folate Urine WBC (Auto) Urine Creatinine Urine Total Protein Vancomycin Trough 06/11/19 06/11/19 06/12/19 18:22 23:46 03:21 WBC 11.9 H RBC 3.61 L Hgb 9.9 L Hct 31.7 L MCV MCH 27 L MCHC 31 L RDW 19.3 H Plt Count Lymph % (Auto) 10.6 L [place] % (Auto) 8.6 H Eos % (Auto) Lymph # [place] # 1.0 H Eos # Seg Neutrophils % 80.6 H Seg Neuts % (Manual) Lymphocytes % (Manual) Monocytes % (Manual) Eosinophils % (Manual) Nucleated RBC % Seg Neutrophils # 9.6 H Seg Neutrophils # Man Lymphocytes # (Manual) Monocytes # (Manual) Eosinophils # (Manual) PT INR APTT Fibrinogen POC ABG pH ABG pH POC ABG pCO2 POC ABG pO2 ABG pO2 ABG HCO3 ABG O2 Saturation ABG Base Excess ABG Hemoglobin Oxyhemoglobin Sodium Potassium Chloride Carbon Dioxide BUN Creatinine Glucose POC Glucose 158 H 182 H Uric Acid Calcium Phosphorus Magnesium Iron TIBC AST ALT Total Creatine Kinase CK-MB (CK-2) Troponin T NT-Pro-B Natriuret Pep Total Protein Albumin Triglycerides HDL Cholesterol Folate Urine WBC (Auto) Urine Creatinine Urine Total Protein Vancomycin Trough 06/12/19 06/12/19 06/12/19 03:21 06:04 11:28 WBC RBC Hgb Hct MCV MCH MCHC RDW Plt Count Lymph % (Auto) [place] % (Auto) Eos % (Auto) Lymph # [place] # Eos # Seg Neutrophils % Seg Neuts % (Manual) Lymphocytes % (Manual) Monocytes % (Manual) Eosinophils % (Manual) Nucleated RBC % Seg Neutrophils # Seg Neutrophils # Man Lymphocytes # (Manual) Monocytes # (Manual) Eosinophils # (Manual) PT INR APTT Fibrinogen POC ABG pH ABG pH POC ABG pCO2 POC ABG pO2 ABG pO2 ABG HCO3 ABG O2 Saturation ABG Base Excess ABG Hemoglobin Oxyhemoglobin Sodium 148 H Potassium Chloride 107.3 H Carbon Dioxide BUN 34 H Creatinine 0.7 L Glucose 194 H POC Glucose 133 H 167 H Uric Acid Calcium Phosphorus Magnesium 1.40 L Iron TIBC AST ALT Total Creatine Kinase CK-MB (CK-2) Troponin T NT-Pro-B Natriuret Pep Total Protein Albumin Triglycerides HDL Cholesterol Folate Urine WBC (Auto) Urine Creatinine Urine Total Protein Vancomycin Trough 06/12/19 06/12/19 06/13/19 18:47 21:27 00:04 WBC RBC Hgb Hct MCV MCH MCHC RDW Plt Count Lymph % (Auto) [place] % (Auto) Eos % (Auto) Lymph # [place] # Eos # Seg Neutrophils % Seg Neuts % (Manual) Lymphocytes % (Manual) Monocytes % (Manual) Eosinophils % (Manual) Nucleated RBC % Seg Neutrophils # Seg Neutrophils # Man Lymphocytes # (Manual) Monocytes # (Manual) Eosinophils # (Manual) PT INR APTT Fibrinogen POC ABG pH ABG pH POC ABG pCO2 POC ABG pO2 ABG pO2 ABG HCO3 ABG O2 Saturation ABG Base Excess ABG Hemoglobin Oxyhemoglobin Sodium Potassium Chloride Carbon Dioxide BUN Creatinine Glucose POC Glucose 210 H 263 H 248 H Uric Acid Calcium Phosphorus Magnesium Iron TIBC AST ALT Total Creatine Kinase CK-MB (CK-2) Troponin T NT-Pro-B Natriuret Pep Total Protein Albumin Triglycerides HDL Cholesterol Folate Urine WBC (Auto) Urine Creatinine Urine Total Protein Vancomycin Trough 06/13/19 06/13/19 06/13/19 04:32 05:46 13:30 WBC RBC Hgb Hct MCV MCH MCHC RDW Plt Count Lymph % (Auto) [place] % (Auto) Eos % (Auto) Lymph # [place] # Eos # Seg Neutrophils % Seg Neuts % (Manual) Lymphocytes % (Manual) Monocytes % (Manual) Eosinophils % (Manual) Nucleated RBC % Seg Neutrophils # Seg Neutrophils # Man Lymphocytes # (Manual) Monocytes # (Manual) Eosinophils # (Manual) PT INR APTT Fibrinogen POC ABG pH ABG pH POC ABG pCO2 POC ABG pO2 ABG pO2 ABG HCO3 ABG O2 Saturation ABG Base Excess ABG Hemoglobin Oxyhemoglobin Sodium Potassium Chloride Carbon Dioxide BUN 27 H Creatinine 0.7 L Glucose 253 H POC Glucose 201 H 241 H Uric Acid Calcium Phosphorus Magnesium Iron TIBC AST ALT Total Creatine Kinase CK-MB (CK-2) Troponin T NT-Pro-B Natriuret Pep Total Protein Albumin Triglycerides HDL Cholesterol Folate Urine WBC (Auto) Urine Creatinine Urine Total Protein Vancomycin Trough 06/13/19 06/13/19 06/14/19 17:33 23:49 04:50 WBC RBC Hgb Hct MCV MCH MCHC RDW Plt Count Lymph % (Auto) [place] % (Auto) Eos % (Auto) Lymph # [place] # Eos # Seg Neutrophils % Seg Neuts % (Manual) Lymphocytes % (Manual) Monocytes % (Manual) Eosinophils % (Manual) Nucleated RBC % Seg Neutrophils # Seg Neutrophils # Man Lymphocytes # (Manual) Monocytes # (Manual) Eosinophils # (Manual) PT INR APTT Fibrinogen POC ABG pH ABG pH POC ABG pCO2 POC ABG pO2 ABG pO2 ABG HCO3 ABG O2 Saturation ABG Base Excess ABG Hemoglobin Oxyhemoglobin Sodium Potassium Chloride Carbon Dioxide BUN 37 H Creatinine Glucose 256 H POC Glucose 264 H 236 H Uric Acid Calcium Phosphorus Magnesium Iron TIBC AST ALT Total Creatine Kinase CK-MB (CK-2) Troponin T NT-Pro-B Natriuret Pep Total Protein Albumin Triglycerides HDL Cholesterol Folate Urine WBC (Auto) Urine Creatinine Urine Total Protein Vancomycin Trough 06/14/19 06/14/19 06/14/19 05:26 12:31 18:32 WBC RBC Hgb Hct MCV MCH MCHC RDW Plt Count Lymph % (Auto) [place] % (Auto) Eos % (Auto) Lymph # [place] # Eos # Seg Neutrophils % Seg Neuts % (Manual) Lymphocytes % (Manual) Monocytes % (Manual) Eosinophils % (Manual) Nucleated RBC % Seg Neutrophils # Seg Neutrophils # Man Lymphocytes # (Manual) Monocytes # (Manual) Eosinophils # (Manual) PT INR APTT Fibrinogen POC ABG pH ABG pH POC ABG pCO2 POC ABG pO2 ABG pO2 ABG HCO3 ABG O2 Saturation ABG Base Excess ABG Hemoglobin Oxyhemoglobin Sodium Potassium Chloride Carbon Dioxide BUN Creatinine Glucose POC Glucose 239 H 116 H 247 H Uric Acid Calcium Phosphorus Magnesium Iron TIBC AST ALT Total Creatine Kinase CK-MB (CK-2) Troponin T NT-Pro-B Natriuret Pep Total Protein Albumin Triglycerides HDL Cholesterol Folate Urine WBC (Auto) Urine Creatinine Urine Total Protein Vancomycin Trough 06/14/19 06/15/19 06/15/19 23:57 04:05 05:55 WBC RBC Hgb Hct MCV MCH MCHC RDW Plt Count Lymph % (Auto) [place] % (Auto) Eos % (Auto) Lymph # [place] # Eos # Seg Neutrophils % Seg Neuts % (Manual) Lymphocytes % (Manual) Monocytes % (Manual) Eosinophils % (Manual) Nucleated RBC % Seg Neutrophils # Seg Neutrophils # Man Lymphocytes # (Manual) Monocytes # (Manual) Eosinophils # (Manual) PT INR APTT Fibrinogen POC ABG pH ABG pH POC ABG pCO2 POC ABG pO2 ABG pO2 ABG HCO3 ABG O2 Saturation ABG Base Excess ABG Hemoglobin Oxyhemoglobin Sodium Potassium Chloride Carbon Dioxide BUN 46 H Creatinine 0.7 L Glucose 265 H POC Glucose 206 H 265 H Uric Acid Calcium Phosphorus Magnesium Iron TIBC AST ALT Total Creatine Kinase CK-MB (CK-2) Troponin T NT-Pro-B Natriuret Pep Total Protein Albumin Triglycerides HDL Cholesterol Folate Urine WBC (Auto) Urine Creatinine Urine Total Protein Vancomycin Trough 06/15/19 06/15/19 06/15/19 12:08 18:45 23:41 WBC RBC Hgb Hct MCV MCH MCHC RDW Plt Count Lymph % (Auto) [place] % (Auto) Eos % (Auto) Lymph # [place] # Eos # Seg Neutrophils % Seg Neuts % (Manual) Lymphocytes % (Manual) Monocytes % (Manual) Eosinophils % (Manual) Nucleated RBC % Seg Neutrophils # Seg Neutrophils # Man Lymphocytes # (Manual) Monocytes # (Manual) Eosinophils # (Manual) PT INR APTT Fibrinogen POC ABG pH ABG pH POC ABG pCO2 POC ABG pO2 ABG pO2 ABG HCO3 ABG O2 Saturation ABG Base Excess ABG Hemoglobin Oxyhemoglobin Sodium Potassium Chloride Carbon Dioxide BUN Creatinine Glucose POC Glucose 224 H 177 H 193 H Uric Acid Calcium Phosphorus Magnesium Iron TIBC AST ALT Total Creatine Kinase CK-MB (CK-2) Troponin T NT-Pro-B Natriuret Pep Total Protein Albumin Triglycerides HDL Cholesterol Folate Urine WBC (Auto) Urine Creatinine Urine Total Protein Vancomycin Trough 06/16/19 06/16/19 06/16/19 05:00 05:00 05:40 WBC 11.9 H RBC 3.24 L Hgb 9.0 L Hct 29.0 L MCV MCH MCHC 31 L RDW 18.6 H Plt Count 111 L Lymph % (Auto) [place] % (Auto) Eos % (Auto) Lymph # [place] # Eos # Seg Neutrophils % Seg Neuts % (Manual) 92.0 H Lymphocytes % (Manual) 2.0 L Monocytes % (Manual) Eosinophils % (Manual) Nucleated RBC % Seg Neutrophils # Seg Neutrophils # Man 10.9 H Lymphocytes # (Manual) 0.2 L Monocytes # (Manual) Eosinophils # (Manual) PT INR APTT Fibrinogen POC ABG pH ABG pH POC ABG pCO2 POC ABG pO2 ABG pO2 ABG HCO3 ABG O2 Saturation ABG Base Excess ABG Hemoglobin Oxyhemoglobin Sodium Potassium Chloride Carbon Dioxide 33 H BUN 49 H Creatinine 0.7 L Glucose 264 H POC Glucose 247 H Uric Acid Calcium Phosphorus Magnesium Iron TIBC AST ALT Total Creatine Kinase CK-MB (CK-2) Troponin T NT-Pro-B Natriuret Pep Total Protein Albumin Triglycerides HDL Cholesterol Folate Urine WBC (Auto) Urine Creatinine Urine Total Protein Vancomycin Trough 06/16/19 06/16/19 06/16/19 12:03 17:11 18:11 WBC RBC Hgb Hct MCV MCH MCHC RDW Plt Count Lymph % (Auto) [place] % (Auto) Eos % (Auto) Lymph # [place] # Eos # Seg Neutrophils % Seg Neuts % (Manual) Lymphocytes % (Manual) Monocytes % (Manual) Eosinophils % (Manual) Nucleated RBC % Seg Neutrophils # Seg Neutrophils # Man Lymphocytes # (Manual) Monocytes # (Manual) Eosinophils # (Manual) PT INR APTT Fibrinogen POC ABG pH ABG pH 7.289 L POC ABG pCO2 POC ABG pO2 ABG pO2 399.3 H ABG HCO3 30.1 H ABG O2 Saturation 99.6 H ABG Base Excess ABG Hemoglobin 8.6 L Oxyhemoglobin Sodium Potassium Chloride Carbon Dioxide BUN Creatinine Glucose POC Glucose 252 H 254 H Uric Acid Calcium Phosphorus Magnesium Iron TIBC AST ALT Total Creatine Kinase CK-MB (CK-2) Troponin T NT-Pro-B Natriuret Pep Total Protein Albumin Triglycerides HDL Cholesterol Folate Urine WBC (Auto) Urine Creatinine Urine Total Protein Vancomycin Trough 06/16/19 06/17/19 06/17/19 23:16 05:30 05:53 WBC RBC Hgb Hct MCV MCH MCHC RDW Plt Count Lymph % (Auto) [place] % (Auto) Eos % (Auto) Lymph # [place] # Eos # Seg Neutrophils % Seg Neuts % (Manual) Lymphocytes % (Manual) Monocytes % (Manual) Eosinophils % (Manual) Nucleated RBC % Seg Neutrophils # Seg Neutrophils # Man Lymphocytes # (Manual) Monocytes # (Manual) Eosinophils # (Manual) PT INR APTT Fibrinogen POC ABG pH ABG pH POC ABG pCO2 POC ABG pO2 ABG pO2 ABG HCO3 ABG O2 Saturation ABG Base Excess ABG Hemoglobin Oxyhemoglobin Sodium 147 H Potassium Chloride Carbon Dioxide 32 H BUN 60 H Creatinine Glucose 205 H POC Glucose 238 H 211 H Uric Acid Calcium Phosphorus Magnesium Iron TIBC AST ALT Total Creatine Kinase CK-MB (CK-2) Troponin T NT-Pro-B Natriuret Pep Total Protein Albumin Triglycerides HDL Cholesterol Folate Urine WBC (Auto) Urine Creatinine Urine Total Protein Vancomycin Trough 06/17/19 06/17/19 06/17/19 09:50 12:27 12:45 WBC RBC 2.79 L Hgb 8.2 L Hct 24.6 L MCV MCH MCHC RDW 18.5 H Plt Count 95 L Lymph % (Auto) [place] % (Auto) Eos % (Auto) Lymph # [place] # Eos # Seg Neutrophils % Seg Neuts % (Manual) Lymphocytes % (Manual) Monocytes % (Manual) Eosinophils % (Manual) Nucleated RBC % Seg Neutrophils # Seg Neutrophils # Man Lymphocytes # (Manual) Monocytes # (Manual) Eosinophils # (Manual) PT INR APTT Fibrinogen 194 L POC ABG pH ABG pH POC ABG pCO2 POC ABG pO2 ABG pO2 ABG HCO3 ABG O2 Saturation ABG Base Excess ABG Hemoglobin Oxyhemoglobin Sodium Potassium Chloride Carbon Dioxide BUN Creatinine Glucose POC Glucose 224 H Uric Acid Calcium Phosphorus Magnesium Iron TIBC AST ALT Total Creatine Kinase CK-MB (CK-2) Troponin T NT-Pro-B Natriuret Pep Total Protein Albumin Triglycerides HDL Cholesterol Folate Urine WBC (Auto) Urine Creatinine Urine Total Protein Vancomycin Trough 06/17/19 06/17/19 06/17/19 18:41 22:00 23:23 WBC RBC Hgb Hct MCV MCH MCHC RDW Plt Count Lymph % (Auto) [place] % (Auto) Eos % (Auto) Lymph # [place] # Eos # Seg Neutrophils % Seg Neuts % (Manual) Lymphocytes % (Manual) Monocytes % (Manual) Eosinophils % (Manual) Nucleated RBC % Seg Neutrophils # Seg Neutrophils # Man Lymphocytes # (Manual) Monocytes # (Manual) Eosinophils # (Manual) PT INR APTT Fibrinogen POC ABG pH ABG pH POC ABG pCO2 POC ABG pO2 ABG pO2 ABG HCO3 ABG O2 Saturation ABG Base Excess ABG Hemoglobin Oxyhemoglobin Sodium Potassium Chloride Carbon Dioxide BUN Creatinine Glucose POC Glucose 198 H 166 H 171 H Uric Acid Calcium Phosphorus Magnesium Iron TIBC AST ALT Total Creatine Kinase CK-MB (CK-2) Troponin T NT-Pro-B Natriuret Pep Total Protein Albumin Triglycerides HDL Cholesterol Folate Urine WBC (Auto) Urine Creatinine Urine Total Protein Vancomycin Trough 06/17/19 06/18/19 06/18/19 Unknown 03:50 04:25 WBC RBC Hgb Hct MCV MCH MCHC RDW Plt Count Lymph % (Auto) [place] % (Auto) Eos % (Auto) Lymph # [place] # Eos # Seg Neutrophils % Seg Neuts % (Manual) Lymphocytes % (Manual) Monocytes % (Manual) Eosinophils % (Manual) Nucleated RBC % Seg Neutrophils # Seg Neutrophils # Man Lymphocytes # (Manual) Monocytes # (Manual) Eosinophils # (Manual) PT INR APTT Fibrinogen POC ABG pH ABG pH 7.564 H 7.499 H POC ABG pCO2 POC ABG pO2 ABG pO2 238.6 H 130.8 H ABG HCO3 33.6 H 32.5 H ABG O2 Saturation 99.4 H ABG Base Excess 10.6 H 8.5 H ABG Hemoglobin 7.9 L 8.8 L Oxyhemoglobin Sodium 151 H Potassium 3.4 L Chloride Carbon Dioxide BUN 66 H Creatinine Glucose 189 H POC Glucose Uric Acid Calcium Phosphorus Magnesium Iron TIBC AST ALT Total Creatine Kinase CK-MB (CK-2) Troponin T NT-Pro-B Natriuret Pep Total Protein Albumin Triglycerides HDL Cholesterol Folate Urine WBC (Auto) Urine Creatinine Urine Total Protein Vancomycin Trough 06/18/19 06/18/19 06/18/19 05:25 05:27 11:50 WBC RBC 2.61 L Hgb 7.4 L Hct 22.9 L MCV MCH MCHC RDW 19.9 H Plt Count 81 L Lymph % (Auto) 12.9 L [place] % (Auto) 7.7 H Eos % (Auto) Lymph # 1.1 L [place] # Eos # Seg Neutrophils % 77.4 H Seg Neuts % (Manual) Lymphocytes % (Manual) Monocytes % (Manual) Eosinophils % (Manual) Nucleated RBC % Seg Neutrophils # Seg Neutrophils # Man Lymphocytes # (Manual) Monocytes # (Manual) Eosinophils # (Manual) PT INR APTT Fibrinogen POC ABG pH ABG pH POC ABG pCO2 POC ABG pO2 ABG pO2 ABG HCO3 ABG O2 Saturation ABG Base Excess ABG Hemoglobin Oxyhemoglobin Sodium Potassium Chloride Carbon Dioxide BUN Creatinine Glucose POC Glucose 186 H 263 H Uric Acid Calcium Phosphorus Magnesium Iron TIBC AST ALT Total Creatine Kinase CK-MB (CK-2) Troponin T NT-Pro-B Natriuret Pep Total Protein Albumin Triglycerides HDL Cholesterol Folate Urine WBC (Auto) Urine Creatinine Urine Total Protein Vancomycin Trough 06/18/19 06/18/19 06/18/19 18:35 21:31 23:21 WBC RBC Hgb Hct MCV MCH MCHC RDW Plt Count Lymph % (Auto) [place] % (Auto) Eos % (Auto) Lymph # [place] # Eos # Seg Neutrophils % Seg Neuts % (Manual) Lymphocytes % (Manual) Monocytes % (Manual) Eosinophils % (Manual) Nucleated RBC % Seg Neutrophils # Seg Neutrophils # Man Lymphocytes # (Manual) Monocytes # (Manual) Eosinophils # (Manual) PT INR APTT Fibrinogen POC ABG pH ABG pH POC ABG pCO2 POC ABG pO2 ABG pO2 ABG HCO3 ABG O2 Saturation ABG Base Excess ABG Hemoglobin Oxyhemoglobin Sodium Potassium Chloride Carbon Dioxide BUN Creatinine Glucose POC Glucose 154 H 186 H 202 H Uric Acid Calcium Phosphorus Magnesium Iron TIBC AST ALT Total Creatine Kinase CK-MB (CK-2) Troponin T NT-Pro-B Natriuret Pep Total Protein Albumin Triglycerides HDL Cholesterol Folate Urine WBC (Auto) Urine Creatinine Urine Total Protein Vancomycin Trough 06/19/19 06/19/19 06/19/19 03:18 04:30 04:30 WBC RBC 2.65 L Hgb 7.5 L Hct 23.1 L MCV MCH MCHC RDW 19.4 H Plt Count 74 L Lymph % (Auto) 8.8 L [place] % (Auto) 9.4 H Eos % (Auto) 4.7 H Lymph # 0.6 L [place] # Eos # Seg Neutrophils % 76.6 H Seg Neuts % (Manual) Lymphocytes % (Manual) Monocytes % (Manual) Eosinophils % (Manual) Nucleated RBC % Seg Neutrophils # Seg Neutrophils # Man Lymphocytes # (Manual) Monocytes # (Manual) Eosinophils # (Manual) PT INR APTT Fibrinogen POC ABG pH ABG pH 7.452 H POC ABG pCO2 POC ABG pO2 ABG pO2 105.5 H ABG HCO3 32.3 H ABG O2 Saturation ABG Base Excess 7.6 H ABG Hemoglobin 6.9 L Oxyhemoglobin Sodium 150 H Potassium 3.3 L Chloride Carbon Dioxide 31 H BUN 56 H Creatinine Glucose 197 H POC Glucose Uric Acid Calcium Phosphorus Magnesium Iron TIBC AST ALT Total Creatine Kinase CK-MB (CK-2) Troponin T NT-Pro-B Natriuret Pep Total Protein Albumin Triglycerides 210 H HDL Cholesterol Folate Urine WBC (Auto) Urine Creatinine Urine Total Protein Vancomycin Trough 06/19/19 06/19/19 06/19/19 05:24 12:18 18:55 WBC RBC Hgb Hct MCV MCH MCHC RDW Plt Count Lymph % (Auto) [place] % (Auto) Eos % (Auto) Lymph # [place] # Eos # Seg Neutrophils % Seg Neuts % (Manual) Lymphocytes % (Manual) Monocytes % (Manual) Eosinophils % (Manual) Nucleated RBC % Seg Neutrophils # Seg Neutrophils # Man Lymphocytes # (Manual) Monocytes # (Manual) Eosinophils # (Manual) PT INR APTT Fibrinogen POC ABG pH ABG pH POC ABG pCO2 POC ABG pO2 ABG pO2 ABG HCO3 ABG O2 Saturation ABG Base Excess ABG Hemoglobin Oxyhemoglobin Sodium Potassium Chloride Carbon Dioxide BUN Creatinine Glucose POC Glucose 176 H 260 H 192 H Uric Acid Calcium Phosphorus Magnesium Iron TIBC AST ALT Total Creatine Kinase CK-MB (CK-2) Troponin T NT-Pro-B Natriuret Pep Total Protein Albumin Triglycerides HDL Cholesterol Folate Urine WBC (Auto) Urine Creatinine Urine Total Protein Vancomycin Trough 06/19/19 06/19/19 06/20/19 22:57 23:46 04:40 WBC RBC 2.79 L Hgb 7.9 L Hct 24.3 L MCV MCH MCHC RDW 19.6 H Plt Count 92 L Lymph % (Auto) 9.2 L [place] % (Auto) 12.0 H Eos % (Auto) 5.2 H Lymph # 0.9 L [place] # 1.2 H Eos # 0.5 H Seg Neutrophils % 73.3 H Seg Neuts % (Manual) Lymphocytes % (Manual) Monocytes % (Manual) Eosinophils % (Manual) Nucleated RBC % Seg Neutrophils # Seg Neutrophils # Man Lymphocytes # (Manual) Monocytes # (Manual) Eosinophils # (Manual) PT INR APTT Fibrinogen POC ABG pH ABG pH POC ABG pCO2 POC ABG pO2 ABG pO2 ABG HCO3 ABG O2 Saturation ABG Base Excess ABG Hemoglobin Oxyhemoglobin Sodium Potassium Chloride Carbon Dioxide BUN Creatinine Glucose POC Glucose 145 H 216 H Uric Acid Calcium Phosphorus Magnesium Iron TIBC AST ALT Total Creatine Kinase CK-MB (CK-2) Troponin T NT-Pro-B Natriuret Pep Total Protein Albumin Triglycerides HDL Cholesterol Folate Urine WBC (Auto) Urine Creatinine Urine Total Protein Vancomycin Trough 06/20/19 06/20/19 06/20/19 04:40 05:40 05:54 WBC RBC Hgb Hct MCV MCH MCHC RDW Plt Count Lymph % (Auto) [place] % (Auto) Eos % (Auto) Lymph # [place] # Eos # Seg Neutrophils % Seg Neuts % (Manual) Lymphocytes % (Manual) Monocytes % (Manual) Eosinophils % (Manual) Nucleated RBC % Seg Neutrophils # Seg Neutrophils # Man Lymphocytes # (Manual) Monocytes # (Manual) Eosinophils # (Manual) PT INR APTT Fibrinogen POC ABG pH ABG pH 7.455 H POC ABG pCO2 POC ABG pO2 ABG pO2 60.9 L ABG HCO3 30.3 H ABG O2 Saturation 92.3 L ABG Base Excess 5.8 H ABG Hemoglobin 8.2 L Oxyhemoglobin 90.1 L Sodium Potassium 3.5 L Chloride Carbon Dioxide BUN 59 H Creatinine Glucose 200 H POC Glucose 190 H Uric Acid Calcium Phosphorus Magnesium 1.60 L Iron TIBC AST ALT Total Creatine Kinase CK-MB (CK-2) Troponin T NT-Pro-B Natriuret Pep Total Protein Albumin Triglycerides HDL Cholesterol Folate Urine WBC (Auto) Urine Creatinine Urine Total Protein Vancomycin Trough 06/20/19 06/20/19 06/20/19 09:12 09:12 12:24 WBC RBC Hgb Hct MCV MCH MCHC RDW Plt Count Lymph % (Auto) [place] % (Auto) Eos % (Auto) Lymph # [place] # Eos # Seg Neutrophils % Seg Neuts % (Manual) Lymphocytes % (Manual) Monocytes % (Manual) Eosinophils % (Manual) Nucleated RBC % Seg Neutrophils # Seg Neutrophils # Man Lymphocytes # (Manual) Monocytes # (Manual) Eosinophils # (Manual) PT INR APTT Fibrinogen POC ABG pH ABG pH POC ABG pCO2 POC ABG pO2 ABG pO2 ABG HCO3 ABG O2 Saturation ABG Base Excess ABG Hemoglobin Oxyhemoglobin Sodium Potassium Chloride Carbon Dioxide BUN Creatinine Glucose POC Glucose 225 H Uric Acid Calcium Phosphorus Magnesium Iron 45 L TIBC 110 L AST ALT Total Creatine Kinase CK-MB (CK-2) Troponin T NT-Pro-B Natriuret Pep Total Protein Albumin Triglycerides HDL Cholesterol Folate 7.01 L Urine WBC (Auto) Urine Creatinine Urine Total Protein Vancomycin Trough 06/20/19 06/20/19 06/20/19 17:42 21:55 23:24 WBC RBC Hgb Hct MCV MCH MCHC RDW Plt Count Lymph % (Auto) [place] % (Auto) Eos % (Auto) Lymph # [place] # Eos # Seg Neutrophils % Seg Neuts % (Manual) Lymphocytes % (Manual) Monocytes % (Manual) Eosinophils % (Manual) Nucleated RBC % Seg Neutrophils # Seg Neutrophils # Man Lymphocytes # (Manual) Monocytes # (Manual) Eosinophils # (Manual) PT INR APTT Fibrinogen POC ABG pH ABG pH POC ABG pCO2 POC ABG pO2 ABG pO2 ABG HCO3 ABG O2 Saturation ABG Base Excess ABG Hemoglobin Oxyhemoglobin Sodium Potassium Chloride Carbon Dioxide BUN Creatinine Glucose POC Glucose 255 H 218 H 215 H Uric Acid Calcium Phosphorus Magnesium Iron TIBC AST ALT Total Creatine Kinase CK-MB (CK-2) Troponin T NT-Pro-B Natriuret Pep Total Protein Albumin Triglycerides HDL Cholesterol Folate Urine WBC (Auto) Urine Creatinine Urine Total Protein Vancomycin Trough 06/21/19 06/21/19 06/21/19 03:32 03:40 05:20 WBC 12.8 H RBC 3.03 L Hgb 8.5 L Hct 26.2 L MCV MCH MCHC RDW 19.4 H Plt Count 131 L Lymph % (Auto) [place] % (Auto) Eos % (Auto) Lymph # [place] # Eos # Seg Neutrophils % Seg Neuts % (Manual) 78.0 H Lymphocytes % (Manual) 5.0 L Monocytes % (Manual) 11.0 H Eosinophils % (Manual) Nucleated RBC % Seg Neutrophils # Seg Neutrophils # Man 10.0 H Lymphocytes # (Manual) 0.6 L Monocytes # (Manual) 1.4 H Eosinophils # (Manual) 0.5 H PT INR APTT Fibrinogen POC ABG pH ABG pH 7.476 H POC ABG pCO2 POC ABG pO2 ABG pO2 162.0 H ABG HCO3 26.8 H ABG O2 Saturation 99.1 H ABG Base Excess 3.1 H ABG Hemoglobin 8.6 L Oxyhemoglobin Sodium Potassium Chloride Carbon Dioxide BUN Creatinine Glucose POC Glucose 202 H Uric Acid Calcium Phosphorus Magnesium Iron TIBC AST ALT Total Creatine Kinase CK-MB (CK-2) Troponin T NT-Pro-B Natriuret Pep Total Protein Albumin Triglycerides HDL Cholesterol Folate Urine WBC (Auto) Urine Creatinine Urine Total Protein Vancomycin Trough 01/27/20 01/27/20 01/27/20 05:20 12:30 18:18 WBC RBC Hgb Hct MCV MCH MCHC RDW Plt Count Lymph % (Auto) [place] % (Auto) Eos % (Auto) Lymph # [place] # Eos # Seg Neutrophils % Seg Neuts % (Manual) Lymphocytes % (Manual) Monocytes % (Manual) Eosinophils % (Manual) Nucleated RBC % Seg Neutrophils # Seg Neutrophils # Man Lymphocytes # (Manual) Monocytes # (Manual) Eosinophils # (Manual) PT INR APTT Fibrinogen POC ABG pH ABG pH POC ABG pCO2 POC ABG pO2 ABG pO2 ABG HCO3 ABG O2 Saturation ABG Base Excess ABG Hemoglobin Oxyhemoglobin Sodium Potassium Chloride 97.7 L Carbon Dioxide BUN 69 H Creatinine Glucose 239 H POC Glucose 176 H 187 H Uric Acid Calcium Phosphorus Magnesium 2.40 H Iron TIBC AST ALT Total Creatine Kinase CK-MB (CK-2) Troponin T NT-Pro-B Natriuret Pep Total Protein Albumin Triglycerides HDL Cholesterol Folate Urine WBC (Auto) Urine Creatinine Urine Total Protein Vancomycin Trough 06/22/19 06/22/19 06/22/19 04:11 05:30 05:30 WBC 12.6 H RBC 3.10 L Hgb 8.7 L Hct 27.0 L MCV MCH MCHC RDW 19.8 H Plt Count Lymph % (Auto) [place] % (Auto) Eos % (Auto) Lymph # [place] # Eos # Seg Neutrophils % Seg Neuts % (Manual) Lymphocytes % (Manual) Monocytes % (Manual) 10.0 H Eosinophils % (Manual) Nucleated RBC % Seg Neutrophils # Seg Neutrophils # Man 8.7 H Lymphocytes # (Manual) Monocytes # (Manual) 1.3 H Eosinophils # (Manual) PT INR APTT Fibrinogen POC ABG pH ABG pH POC ABG pCO2 POC ABG pO2 ABG pO2 ABG HCO3 27.7 H ABG O2 Saturation ABG Base Excess 3.3 H ABG Hemoglobin 8.5 L Oxyhemoglobin 94.9 L Sodium Potassium Chloride Carbon Dioxide BUN 66 H Creatinine Glucose 103 H POC Glucose Uric Acid Calcium Phosphorus Magnesium Iron TIBC AST ALT Total Creatine Kinase CK-MB (CK-2) Troponin T NT-Pro-B Natriuret Pep Total Protein Albumin Triglycerides HDL Cholesterol Folate Urine WBC (Auto) Urine Creatinine Urine Total Protein Vancomycin Trough 06/22/19 06/22/19 06/23/19 17:43 23:25 02:00 WBC RBC Hgb Hct MCV MCH MCHC RDW Plt Count Lymph % (Auto) [place] % (Auto) Eos % (Auto) Lymph # [place] # Eos # Seg Neutrophils % Seg Neuts % (Manual) Lymphocytes % (Manual) Monocytes % (Manual) Eosinophils % (Manual) Nucleated RBC % Seg Neutrophils # Seg Neutrophils # Man Lymphocytes # (Manual) Monocytes # (Manual) Eosinophils # (Manual) PT INR APTT Fibrinogen POC ABG pH ABG pH 7.469 H POC ABG pCO2 POC ABG pO2 ABG pO2 58.7 L ABG HCO3 28.0 H ABG O2 Saturation 94.6 L ABG Base Excess 4.0 H ABG Hemoglobin 7.1 L Oxyhemoglobin 92.2 L Sodium Potassium Chloride Carbon Dioxide BUN Creatinine Glucose POC Glucose 143 H 106 H Uric Acid Calcium Phosphorus Magnesium Iron TIBC AST ALT Total Creatine Kinase CK-MB (CK-2) Troponin T NT-Pro-B Natriuret Pep Total Protein Albumin Triglycerides HDL Cholesterol Folate Urine WBC (Auto) Urine Creatinine Urine Total Protein Vancomycin Trough 06/23/19 06/23/19 06/23/19 05:24 05:24 11:43 WBC 12.6 H RBC 2.96 L Hgb 8.3 L Hct 25.5 L MCV MCH MCHC RDW 20.2 H Plt Count Lymph % (Auto) [place] % (Auto) Eos % (Auto) Lymph # [place] # Eos # Seg Neutrophils % Seg Neuts % (Manual) Lymphocytes % (Manual) 12.0 L Monocytes % (Manual) 11.0 H Eosinophils % (Manual) 6.0 H Nucleated RBC % Seg Neutrophils # Seg Neutrophils # Man 8.8 H Lymphocytes # (Manual) Monocytes # (Manual) 1.4 H Eosinophils # (Manual) 0.8 H PT INR APTT Fibrinogen POC ABG pH ABG pH POC ABG pCO2 POC ABG pO2 ABG pO2 ABG HCO3 ABG O2 Saturation ABG Base Excess ABG Hemoglobin Oxyhemoglobin Sodium 146 H Potassium 3.5 L Chloride Carbon Dioxide BUN 48 H Creatinine Glucose 123 H POC Glucose 120 H Uric Acid Calcium Phosphorus Magnesium Iron TIBC AST ALT Total Creatine Kinase CK-MB (CK-2) Troponin T NT-Pro-B Natriuret Pep Total Protein Albumin Triglycerides HDL Cholesterol Folate Urine WBC (Auto) Urine Creatinine Urine Total Protein Vancomycin Trough 06/23/19 06/24/19 06/24/19 17:39 06:53 06:53 WBC 12.3 H RBC 2.87 L Hgb 8.0 L Hct 24.9 L MCV MCH MCHC RDW 20.5 H Plt Count Lymph % (Auto) [place] % (Auto) 8.8 H Eos % (Auto) 4.4 H Lymph # [place] # 1.1 H Eos # 0.5 H Seg Neutrophils % Seg Neuts % (Manual) Lymphocytes % (Manual) Monocytes % (Manual) Eosinophils % (Manual) Nucleated RBC % Seg Neutrophils # Seg Neutrophils # Man Lymphocytes # (Manual) Monocytes # (Manual) Eosinophils # (Manual) PT INR APTT Fibrinogen POC ABG pH ABG pH POC ABG pCO2 POC ABG pO2 ABG pO2 ABG HCO3 ABG O2 Saturation ABG Base Excess ABG Hemoglobin Oxyhemoglobin Sodium Potassium Chloride 107.1 H Carbon Dioxide 21 L BUN 29 H Creatinine 0.6 L Glucose 117 H POC Glucose 111 H Uric Acid Calcium Phosphorus Magnesium 1.60 L Iron TIBC AST ALT Total Creatine Kinase CK-MB (CK-2) Troponin T NT-Pro-B Natriuret Pep Total Protein Albumin Triglycerides HDL Cholesterol Folate Urine WBC (Auto) Urine Creatinine Urine Total Protein Vancomycin Trough 06/24/19 06/24/19 06/24/19 12:12 18:01 23:20 WBC RBC Hgb Hct MCV MCH MCHC RDW Plt Count Lymph % (Auto) [place] % (Auto) Eos % (Auto) Lymph # [place] # Eos # Seg Neutrophils % Seg Neuts % (Manual) Lymphocytes % (Manual) Monocytes % (Manual) Eosinophils % (Manual) Nucleated RBC % Seg Neutrophils # Seg Neutrophils # Man Lymphocytes # (Manual) Monocytes # (Manual) Eosinophils # (Manual) PT INR APTT Fibrinogen POC ABG pH ABG pH POC ABG pCO2 POC ABG pO2 ABG pO2 ABG HCO3 ABG O2 Saturation ABG Base Excess ABG Hemoglobin Oxyhemoglobin Sodium Potassium Chloride Carbon Dioxide BUN Creatinine Glucose POC Glucose 158 H 133 H 106 H Uric Acid Calcium Phosphorus Magnesium Iron TIBC AST ALT Total Creatine Kinase CK-MB (CK-2) Troponin T NT-Pro-B Natriuret Pep Total Protein Albumin Triglycerides HDL Cholesterol Folate Urine WBC (Auto) Urine Creatinine Urine Total Protein Vancomycin Trough 06/25/19 06/25/19 06/25/19 04:46 04:46 05:36 WBC 12.3 H RBC 2.98 L Hgb 8.3 L Hct 26.4 L MCV MCH MCHC 31 L RDW 20.1 H Plt Count Lymph % (Auto) [place] % (Auto) Eos % (Auto) Lymph # [place] # Eos # Seg Neutrophils % Seg Neuts % (Manual) Lymphocytes % (Manual) Monocytes % (Manual) 10.0 H Eosinophils % (Manual) Nucleated RBC % Seg Neutrophils # Seg Neutrophils # Man 8.1 H Lymphocytes # (Manual) Monocytes # (Manual) 1.2 H Eosinophils # (Manual) PT INR APTT Fibrinogen POC ABG pH ABG pH POC ABG pCO2 POC ABG pO2 ABG pO2 ABG HCO3 ABG O2 Saturation ABG Base Excess ABG Hemoglobin Oxyhemoglobin Sodium 148 H Potassium Chloride 108.0 H Carbon Dioxide BUN 21 H Creatinine 0.7 L Glucose 120 H POC Glucose 121 H Uric Acid Calcium Phosphorus Magnesium Iron TIBC AST ALT Total Creatine Kinase CK-MB (CK-2) Troponin T NT-Pro-B Natriuret Pep Total Protein Albumin Triglycerides HDL Cholesterol Folate Urine WBC (Auto) Urine Creatinine Urine Total Protein Vancomycin Trough 06/25/19 06/25/19 06/26/19 14:02 18:30 00:01 WBC RBC Hgb Hct MCV MCH MCHC RDW Plt Count Lymph % (Auto) [place] % (Auto) Eos % (Auto) Lymph # [place] # Eos # Seg Neutrophils % Seg Neuts % (Manual) Lymphocytes % (Manual) Monocytes % (Manual) Eosinophils % (Manual) Nucleated RBC % Seg Neutrophils # Seg Neutrophils # Man Lymphocytes # (Manual) Monocytes # (Manual) Eosinophils # (Manual) PT INR APTT Fibrinogen POC ABG pH ABG pH POC ABG pCO2 POC ABG pO2 ABG pO2 ABG HCO3 ABG O2 Saturation ABG Base Excess ABG Hemoglobin Oxyhemoglobin Sodium Potassium Chloride Carbon Dioxide BUN Creatinine Glucose POC Glucose 125 H 145 H 142 H Uric Acid Calcium Phosphorus Magnesium Iron TIBC AST ALT Total Creatine Kinase CK-MB (CK-2) Troponin T NT-Pro-B Natriuret Pep Total Protein Albumin Triglycerides HDL Cholesterol Folate Urine WBC (Auto) Urine Creatinine Urine Total Protein Vancomycin Trough 06/26/19 06/26/19 06/26/19 04:43 04:43 05:41 WBC RBC 3.02 L Hgb 8.6 L Hct 27.0 L MCV MCH MCHC RDW 20.4 H Plt Count Lymph % (Auto) [place] % (Auto) Eos % (Auto) Lymph # [place] # Eos # Seg Neutrophils % Seg Neuts % (Manual) Lymphocytes % (Manual) Monocytes % (Manual) 9.0 H Eosinophils % (Manual) Nucleated RBC % Seg Neutrophils # Seg Neutrophils # Man Lymphocytes # (Manual) Monocytes # (Manual) 1.0 H Eosinophils # (Manual) PT INR APTT Fibrinogen POC ABG pH ABG pH POC ABG pCO2 POC ABG pO2 ABG pO2 ABG HCO3 ABG O2 Saturation ABG Base Excess ABG Hemoglobin Oxyhemoglobin Sodium Potassium Chloride Carbon Dioxide BUN Creatinine 0.7 L Glucose 111 H POC Glucose 110 H Uric Acid Calcium Phosphorus Magnesium 1.60 L Iron TIBC AST ALT Total Creatine Kinase CK-MB (CK-2) Troponin T NT-Pro-B Natriuret Pep Total Protein Albumin Triglycerides HDL Cholesterol Folate Urine WBC (Auto) Urine Creatinine Urine Total Protein Vancomycin Trough 06/26/19 06/26/19 06/27/19 11:55 18:07 12:10 WBC RBC Hgb Hct MCV MCH MCHC RDW Plt Count Lymph % (Auto) [place] % (Auto) Eos % (Auto) Lymph # [place] # Eos # Seg Neutrophils % Seg Neuts % (Manual) Lymphocytes % (Manual) Monocytes % (Manual) Eosinophils % (Manual) Nucleated RBC % Seg Neutrophils # Seg Neutrophils # Man Lymphocytes # (Manual) Monocytes # (Manual) Eosinophils # (Manual) PT INR APTT Fibrinogen POC ABG pH ABG pH POC ABG pCO2 POC ABG pO2 ABG pO2 ABG HCO3 ABG O2 Saturation ABG Base Excess ABG Hemoglobin Oxyhemoglobin Sodium Potassium Chloride Carbon Dioxide BUN Creatinine Glucose POC Glucose 159 H 107 H 121 H Uric Acid Calcium Phosphorus Magnesium Iron TIBC AST ALT Total Creatine Kinase CK-MB (CK-2) Troponin T NT-Pro-B Natriuret Pep Total Protein Albumin Triglycerides HDL Cholesterol Folate Urine WBC (Auto) Urine Creatinine Urine Total Protein Vancomycin Trough 06/28/19 06/29/19 06/29/19 05:54 13:10 17:58 WBC RBC Hgb Hct MCV MCH MCHC RDW Plt Count Lymph % (Auto) [place] % (Auto) Eos % (Auto) Lymph # [place] # Eos # Seg Neutrophils % Seg Neuts % (Manual) Lymphocytes % (Manual) Monocytes % (Manual) Eosinophils % (Manual) Nucleated RBC % Seg Neutrophils # Seg Neutrophils # Man Lymphocytes # (Manual) Monocytes # (Manual) Eosinophils # (Manual) PT INR APTT Fibrinogen POC ABG pH ABG pH POC ABG pCO2 POC ABG pO2 ABG pO2 ABG HCO3 ABG O2 Saturation ABG Base Excess ABG Hemoglobin Oxyhemoglobin Sodium Potassium Chloride Carbon Dioxide BUN Creatinine Glucose POC Glucose 107 H 115 H 108 H Uric Acid Calcium Phosphorus Magnesium Iron TIBC AST ALT Total Creatine Kinase CK-MB (CK-2) Troponin T NT-Pro-B Natriuret Pep Total Protein Albumin Triglycerides HDL Cholesterol Folate Urine WBC (Auto) Urine Creatinine Urine Total Protein Vancomycin Trough 06/30/19 06/30/19 07/01/19 12:00 18:13 05:49 WBC RBC Hgb Hct MCV MCH MCHC RDW Plt Count Lymph % (Auto) [place] % (Auto) Eos % (Auto) Lymph # [place] # Eos # Seg Neutrophils % Seg Neuts % (Manual) Lymphocytes % (Manual) Monocytes % (Manual) Eosinophils % (Manual) Nucleated RBC % Seg Neutrophils # Seg Neutrophils # Man Lymphocytes # (Manual) Monocytes # (Manual) Eosinophils # (Manual) PT INR APTT Fibrinogen POC ABG pH ABG pH POC ABG pCO2 POC ABG pO2 ABG pO2 ABG HCO3 ABG O2 Saturation ABG Base Excess ABG Hemoglobin Oxyhemoglobin Sodium Potassium Chloride Carbon Dioxide BUN Creatinine Glucose POC Glucose 108 H 114 H 114 H Uric Acid Calcium Phosphorus Magnesium Iron TIBC AST ALT Total Creatine Kinase CK-MB (CK-2) Troponin T NT-Pro-B Natriuret Pep Total Protein Albumin Triglycerides HDL Cholesterol Folate Urine WBC (Auto) Urine Creatinine Urine Total Protein Vancomycin Trough 07/01/19 07/01/19 07/01/19 07:58 07:58 12:06 WBC 11.5 H RBC 3.24 L Hgb 9.0 L Hct 28.4 L MCV MCH MCHC RDW 20.8 H Plt Count Lymph % (Auto) 8.3 L [place] % (Auto) 10.0 H Eos % (Auto) Lymph # 0.9 L [place] # 1.2 H Eos # Seg Neutrophils % 79.4 H Seg Neuts % (Manual) Lymphocytes % (Manual) Monocytes % (Manual) Eosinophils % (Manual) Nucleated RBC % Seg Neutrophils # 9.1 H Seg Neutrophils # Man Lymphocytes # (Manual) Monocytes # (Manual) Eosinophils # (Manual) PT INR APTT Fibrinogen POC ABG pH ABG pH POC ABG pCO2 POC ABG pO2 ABG pO2 ABG HCO3 ABG O2 Saturation ABG Base Excess ABG Hemoglobin Oxyhemoglobin Sodium Potassium Chloride Carbon Dioxide BUN Creatinine 0.4 L Glucose 130 H POC Glucose 133 H Uric Acid Calcium Phosphorus Magnesium Iron TIBC AST ALT Total Creatine Kinase CK-MB (CK-2) Troponin T NT-Pro-B Natriuret Pep Total Protein Albumin Triglycerides HDL Cholesterol Folate Urine WBC (Auto) Urine Creatinine Urine Total Protein Vancomycin Trough 07/02/19 07/02/19 07/02/19 05:54 13:27 13:39 WBC RBC Hgb Hct MCV MCH MCHC RDW Plt Count Lymph % (Auto) [place] % (Auto) Eos % (Auto) Lymph # [place] # Eos # Seg Neutrophils % Seg Neuts % (Manual) Lymphocytes % (Manual) Monocytes % (Manual) Eosinophils % (Manual) Nucleated RBC % Seg Neutrophils # Seg Neutrophils # Man Lymphocytes # (Manual) Monocytes # (Manual) Eosinophils # (Manual) PT INR APTT Fibrinogen POC ABG pH ABG pH POC ABG pCO2 POC ABG pO2 ABG pO2 ABG HCO3 ABG O2 Saturation ABG Base Excess ABG Hemoglobin Oxyhemoglobin Sodium Potassium Chloride Carbon Dioxide BUN Creatinine Glucose POC Glucose 111 H 123 H 116 H Uric Acid Calcium Phosphorus Magnesium Iron TIBC AST ALT Total Creatine Kinase CK-MB (CK-2) Troponin T NT-Pro-B Natriuret Pep Total Protein Albumin Triglycerides HDL Cholesterol Folate Urine WBC (Auto) Urine Creatinine Urine Total Protein Vancomycin Trough 07/02/19 07/03/19 07/04/19 18:00 06:06 12:15 WBC RBC Hgb Hct MCV MCH MCHC RDW Plt Count Lymph % (Auto) [place] % (Auto) Eos % (Auto) Lymph # [place] # Eos # Seg Neutrophils % Seg Neuts % (Manual) Lymphocytes % (Manual) Monocytes % (Manual) Eosinophils % (Manual) Nucleated RBC % Seg Neutrophils # Seg Neutrophils # Man Lymphocytes # (Manual) Monocytes # (Manual) Eosinophils # (Manual) PT INR APTT Fibrinogen POC ABG pH ABG pH POC ABG pCO2 POC ABG pO2 ABG pO2 ABG HCO3 ABG O2 Saturation ABG Base Excess ABG Hemoglobin Oxyhemoglobin Sodium Potassium Chloride Carbon Dioxide BUN Creatinine Glucose POC Glucose 118 H 127 H 122 H Uric Acid Calcium Phosphorus Magnesium Iron TIBC AST ALT Total Creatine Kinase CK-MB (CK-2) Troponin T NT-Pro-B Natriuret Pep Total Protein Albumin Triglycerides HDL Cholesterol Folate Urine WBC (Auto) Urine Creatinine Urine Total Protein Vancomycin Trough 07/04/19 07/04/19 07/05/19 18:09 23:48 06:30 WBC RBC Hgb Hct MCV MCH MCHC RDW Plt Count Lymph % (Auto) [place] % (Auto) Eos % (Auto) Lymph # [place] # Eos # Seg Neutrophils % Seg Neuts % (Manual) Lymphocytes % (Manual) Monocytes % (Manual) Eosinophils % (Manual) Nucleated RBC % Seg Neutrophils # Seg Neutrophils # Man Lymphocytes # (Manual) Monocytes # (Manual) Eosinophils # (Manual) PT INR APTT Fibrinogen POC ABG pH ABG pH POC ABG pCO2 POC ABG pO2 ABG pO2 ABG HCO3 ABG O2 Saturation ABG Base Excess ABG Hemoglobin Oxyhemoglobin Sodium Potassium Chloride Carbon Dioxide BUN Creatinine Glucose POC Glucose 115 H 110 H 106 H Uric Acid Calcium Phosphorus Magnesium Iron TIBC AST ALT Total Creatine Kinase CK-MB (CK-2) Troponin T NT-Pro-B Natriuret Pep Total Protein Albumin Triglycerides HDL Cholesterol Folate Urine WBC (Auto) Urine Creatinine Urine Total Protein Vancomycin Trough 07/05/19 07/05/19 07/05/19 11:55 18:16 23:38 WBC RBC Hgb Hct MCV MCH MCHC RDW Plt Count Lymph % (Auto) [place] % (Auto) Eos % (Auto) Lymph # [place] # Eos # Seg Neutrophils % Seg Neuts % (Manual) Lymphocytes % (Manual) Monocytes % (Manual) Eosinophils % (Manual) Nucleated RBC % Seg Neutrophils # Seg Neutrophils # Man Lymphocytes # (Manual) Monocytes # (Manual) Eosinophils # (Manual) PT INR APTT Fibrinogen POC ABG pH ABG pH POC ABG pCO2 POC ABG pO2 ABG pO2 ABG HCO3 ABG O2 Saturation ABG Base Excess ABG Hemoglobin Oxyhemoglobin Sodium Potassium Chloride Carbon Dioxide BUN Creatinine Glucose POC Glucose 106 H 120 H 114 H Uric Acid Calcium Phosphorus Magnesium Iron TIBC AST ALT Total Creatine Kinase CK-MB (CK-2) Troponin T NT-Pro-B Natriuret Pep Total Protein Albumin Triglycerides HDL Cholesterol Folate Urine WBC (Auto) Urine Creatinine Urine Total Protein Vancomycin Trough 07/06/19 07/06/19 07/06/19 06:01 12:28 18:49 WBC RBC Hgb Hct MCV MCH MCHC RDW Plt Count Lymph % (Auto) [place] % (Auto) Eos % (Auto) Lymph # [place] # Eos # Seg Neutrophils % Seg Neuts % (Manual) Lymphocytes % (Manual) Monocytes % (Manual) Eosinophils % (Manual) Nucleated RBC % Seg Neutrophils # Seg Neutrophils # Man Lymphocytes # (Manual) Monocytes # (Manual) Eosinophils # (Manual) PT INR APTT Fibrinogen POC ABG pH ABG pH POC ABG pCO2 POC ABG pO2 ABG pO2 ABG HCO3 ABG O2 Saturation ABG Base Excess ABG Hemoglobin Oxyhemoglobin Sodium Potassium Chloride Carbon Dioxide BUN Creatinine Glucose POC Glucose 115 H 114 H 111 H Uric Acid Calcium Phosphorus Magnesium Iron TIBC AST ALT Total Creatine Kinase CK-MB (CK-2) Troponin T NT-Pro-B Natriuret Pep Total Protein Albumin Triglycerides HDL Cholesterol Folate Urine WBC (Auto) Urine Creatinine Urine Total Protein Vancomycin Trough 07/07/19 07/07/19 07/07/19 05:34 11:57 23:54 WBC RBC Hgb Hct MCV MCH MCHC RDW Plt Count Lymph % (Auto) [place] % (Auto) Eos % (Auto) Lymph # [place] # Eos # Seg Neutrophils % Seg Neuts % (Manual) Lymphocytes % (Manual) Monocytes % (Manual) Eosinophils % (Manual) Nucleated RBC % Seg Neutrophils # Seg Neutrophils # Man Lymphocytes # (Manual) Monocytes # (Manual) Eosinophils # (Manual) PT INR APTT Fibrinogen POC ABG pH ABG pH POC ABG pCO2 POC ABG pO2 ABG pO2 ABG HCO3 ABG O2 Saturation ABG Base Excess ABG Hemoglobin Oxyhemoglobin Sodium Potassium Chloride Carbon Dioxide BUN Creatinine Glucose POC Glucose 121 H 135 H 109 H Uric Acid Calcium Phosphorus Magnesium Iron TIBC AST ALT Total Creatine Kinase CK-MB (CK-2) Troponin T NT-Pro-B Natriuret Pep Total Protein Albumin Triglycerides HDL Cholesterol Folate Urine WBC (Auto) Urine Creatinine Urine Total Protein Vancomycin Trough 07/08/19 07/08/19 07/09/19 04:00 04:00 12:13 WBC RBC 3.30 L Hgb 9.3 L Hct 29.0 L MCV MCH MCHC RDW 19.9 H Plt Count Lymph % (Auto) [place] % (Auto) Eos % (Auto) Lymph # [place] # Eos # Seg Neutrophils % Seg Neuts % (Manual) 76.0 H Lymphocytes % (Manual) Monocytes % (Manual) Eosinophils % (Manual) Nucleated RBC % Seg Neutrophils # Seg Neutrophils # Man 8.4 H Lymphocytes # (Manual) Monocytes # (Manual) Eosinophils # (Manual) PT INR APTT Fibrinogen POC ABG pH ABG pH POC ABG pCO2 POC ABG pO2 ABG pO2 ABG HCO3 ABG O2 Saturation ABG Base Excess ABG Hemoglobin Oxyhemoglobin Sodium Potassium Chloride Carbon Dioxide BUN Creatinine 0.5 L Glucose 117 H POC Glucose 111 H Uric Acid Calcium Phosphorus Magnesium Iron TIBC AST ALT Total Creatine Kinase CK-MB (CK-2) Troponin T NT-Pro-B Natriuret Pep Total Protein Albumin Triglycerides HDL Cholesterol Folate Urine WBC (Auto) Urine Creatinine Urine Total Protein Vancomycin Trough 07/10/19 07/10/19 07/10/19 05:28 12:22 17:19 WBC RBC Hgb Hct MCV MCH MCHC RDW Plt Count Lymph % (Auto) [place] % (Auto) Eos % (Auto) Lymph # [place] # Eos # Seg Neutrophils % Seg Neuts % (Manual) Lymphocytes % (Manual) Monocytes % (Manual) Eosinophils % (Manual) Nucleated RBC % Seg Neutrophils # Seg Neutrophils # Man Lymphocytes # (Manual) Monocytes # (Manual) Eosinophils # (Manual) PT INR APTT Fibrinogen POC ABG pH ABG pH POC ABG pCO2 POC ABG pO2 ABG pO2 ABG HCO3 ABG O2 Saturation ABG Base Excess ABG Hemoglobin Oxyhemoglobin Sodium Potassium Chloride Carbon Dioxide BUN Creatinine Glucose POC Glucose 114 H 113 H 115 H Uric Acid Calcium Phosphorus Magnesium Iron TIBC AST ALT Total Creatine Kinase CK-MB (CK-2) Troponin T NT-Pro-B Natriuret Pep Total Protein Albumin Triglycerides HDL Cholesterol Folate Urine WBC (Auto) Urine Creatinine Urine Total Protein Vancomycin Trough 07/11/19 07/11/19 07/11/19 05:27 06:08 06:08 WBC 12.6 H RBC 3.26 L Hgb 9.2 L Hct 28.6 L MCV MCH MCHC RDW 19.6 H Plt Count Lymph % (Auto) [place] % (Auto) Eos % (Auto) Lymph # [place] # Eos # Seg Neutrophils % Seg Neuts % (Manual) Lymphocytes % (Manual) Monocytes % (Manual) Eosinophils % (Manual) Nucleated RBC % Seg Neutrophils # Seg Neutrophils # Man Lymphocytes # (Manual) Monocytes # (Manual) Eosinophils # (Manual) PT INR APTT Fibrinogen POC ABG pH ABG pH POC ABG pCO2 POC ABG pO2 ABG pO2 ABG HCO3 ABG O2 Saturation ABG Base Excess ABG Hemoglobin Oxyhemoglobin Sodium Potassium Chloride Carbon Dioxide 17 L D BUN Creatinine Glucose 117 H POC Glucose 114 H Uric Acid Calcium Phosphorus Magnesium Iron TIBC AST ALT Total Creatine Kinase CK-MB (CK-2) Troponin T NT-Pro-B Natriuret Pep Total Protein Albumin Triglycerides HDL Cholesterol Folate Urine WBC (Auto) Urine Creatinine Urine Total Protein Vancomycin Trough 07/12/19 07/13/19 07/13/19 18:33 03:55 03:55 WBC 11.4 H RBC 3.18 L Hgb 8.8 L Hct 27.4 L MCV MCH MCHC RDW 19.1 H Plt Count Lymph % (Auto) [place] % (Auto) Eos % (Auto) Lymph # [place] # Eos # Seg Neutrophils % Seg Neuts % (Manual) Lymphocytes % (Manual) Monocytes % (Manual) Eosinophils % (Manual) Nucleated RBC % Seg Neutrophils # Seg Neutrophils # Man Lymphocytes # (Manual) Monocytes # (Manual) Eosinophils # (Manual) PT INR APTT Fibrinogen POC ABG pH ABG pH POC ABG pCO2 POC ABG pO2 ABG pO2 ABG HCO3 ABG O2 Saturation ABG Base Excess ABG Hemoglobin Oxyhemoglobin Sodium Potassium Chloride 97.4 L Carbon Dioxide BUN Creatinine 0.5 L Glucose 121 H POC Glucose 106 H Uric Acid Calcium Phosphorus Magnesium Iron TIBC AST ALT Total Creatine Kinase CK-MB (CK-2) Troponin T NT-Pro-B Natriuret Pep Total Protein Albumin Triglycerides HDL Cholesterol Folate Urine WBC (Auto) Urine Creatinine Urine Total Protein Vancomycin Trough 07/13/19 07/13/19 07/14/19 05:08 11:52 11:50 WBC RBC Hgb Hct MCV MCH MCHC RDW Plt Count Lymph % (Auto) [place] % (Auto) Eos % (Auto) Lymph # [place] # Eos # Seg Neutrophils % Seg Neuts % (Manual) Lymphocytes % (Manual) Monocytes % (Manual) Eosinophils % (Manual) Nucleated RBC % Seg Neutrophils # Seg Neutrophils # Man Lymphocytes # (Manual) Monocytes # (Manual) Eosinophils # (Manual) PT INR APTT Fibrinogen POC ABG pH ABG pH POC ABG pCO2 POC ABG pO2 ABG pO2 ABG HCO3 ABG O2 Saturation ABG Base Excess ABG Hemoglobin Oxyhemoglobin Sodium Potassium Chloride Carbon Dioxide BUN Creatinine Glucose POC Glucose 107 H 120 H 125 H Uric Acid Calcium Phosphorus Magnesium Iron TIBC AST ALT Total Creatine Kinase CK-MB (CK-2) Troponin T NT-Pro-B Natriuret Pep Total Protein Albumin Triglycerides HDL Cholesterol Folate Urine WBC (Auto) Urine Creatinine Urine Total Protein Vancomycin Trough 07/14/19 07/15/19 07/15/19 15:52 00:21 05:50 WBC RBC Hgb Hct MCV MCH MCHC RDW Plt Count Lymph % (Auto) [place] % (Auto) Eos % (Auto) Lymph # [place] # Eos # Seg Neutrophils % Seg Neuts % (Manual) Lymphocytes % (Manual) Monocytes % (Manual) Eosinophils % (Manual) Nucleated RBC % Seg Neutrophils # Seg Neutrophils # Man Lymphocytes # (Manual) Monocytes # (Manual) Eosinophils # (Manual) PT INR APTT Fibrinogen POC ABG pH ABG pH POC ABG pCO2 POC ABG pO2 ABG pO2 ABG HCO3 ABG O2 Saturation ABG Base Excess ABG Hemoglobin Oxyhemoglobin Sodium Potassium Chloride Carbon Dioxide BUN Creatinine Glucose POC Glucose 118 H 108 H 123 H Uric Acid Calcium Phosphorus Magnesium Iron TIBC AST ALT Total Creatine Kinase CK-MB (CK-2) Troponin T NT-Pro-B Natriuret Pep Total Protein Albumin Triglycerides HDL Cholesterol Folate Urine WBC (Auto) Urine Creatinine Urine Total Protein Vancomycin Trough 07/15/19 07/15/19 07/15/19 11:38 16:33 17:36 WBC RBC Hgb Hct MCV MCH MCHC RDW Plt Count Lymph % (Auto) [place] % (Auto) Eos % (Auto) Lymph # [place] # Eos # Seg Neutrophils % Seg Neuts % (Manual) Lymphocytes % (Manual) Monocytes % (Manual) Eosinophils % (Manual) Nucleated RBC % Seg Neutrophils # Seg Neutrophils # Man Lymphocytes # (Manual) Monocytes # (Manual) Eosinophils # (Manual) PT INR APTT Fibrinogen POC ABG pH ABG pH POC ABG pCO2 POC ABG pO2 ABG pO2 ABG HCO3 ABG O2 Saturation ABG Base Excess ABG Hemoglobin Oxyhemoglobin Sodium Potassium Chloride Carbon Dioxide BUN Creatinine Glucose POC Glucose 114 H 115 H 132 H Uric Acid Calcium Phosphorus Magnesium Iron TIBC AST ALT Total Creatine Kinase CK-MB (CK-2) Troponin T NT-Pro-B Natriuret Pep Total Protein Albumin Triglycerides HDL Cholesterol Folate Urine WBC (Auto) Urine Creatinine Urine Total Protein Vancomycin Trough 07/16/19 07/16/19 07/17/19 12:33 18:57 11:53 WBC RBC Hgb Hct MCV MCH MCHC RDW Plt Count Lymph % (Auto) [place] % (Auto) Eos % (Auto) Lymph # [place] # Eos # Seg Neutrophils % Seg Neuts % (Manual) Lymphocytes % (Manual) Monocytes % (Manual) Eosinophils % (Manual) Nucleated RBC % Seg Neutrophils # Seg Neutrophils # Man Lymphocytes # (Manual) Monocytes # (Manual) Eosinophils # (Manual) PT INR APTT Fibrinogen POC ABG pH ABG pH POC ABG pCO2 POC ABG pO2 ABG pO2 ABG HCO3 ABG O2 Saturation ABG Base Excess ABG Hemoglobin Oxyhemoglobin Sodium Potassium Chloride Carbon Dioxide BUN Creatinine Glucose POC Glucose 113 H 65 L 113 H Uric Acid Calcium Phosphorus Magnesium Iron TIBC AST ALT Total Creatine Kinase CK-MB (CK-2) Troponin T NT-Pro-B Natriuret Pep Total Protein Albumin Triglycerides HDL Cholesterol Folate Urine WBC (Auto) Urine Creatinine Urine Total Protein Vancomycin Trough 07/17/19 07/18/19 07/18/19 17:42 06:24 17:03 WBC RBC Hgb Hct MCV MCH MCHC RDW Plt Count Lymph % (Auto) [place] % (Auto) Eos % (Auto) Lymph # [place] # Eos # Seg Neutrophils % Seg Neuts % (Manual) Lymphocytes % (Manual) Monocytes % (Manual) Eosinophils % (Manual) Nucleated RBC % Seg Neutrophils # Seg Neutrophils # Man Lymphocytes # (Manual) Monocytes # (Manual) Eosinophils # (Manual) PT INR APTT Fibrinogen POC ABG pH ABG pH POC ABG pCO2 POC ABG pO2 ABG pO2 ABG HCO3 ABG O2 Saturation ABG Base Excess ABG Hemoglobin Oxyhemoglobin Sodium Potassium Chloride Carbon Dioxide BUN Creatinine Glucose POC Glucose 111 H 107 H 117 H Uric Acid Calcium Phosphorus Magnesium Iron TIBC AST ALT Total Creatine Kinase CK-MB (CK-2) Troponin T NT-Pro-B Natriuret Pep Total Protein Albumin Triglycerides HDL Cholesterol Folate Urine WBC (Auto) Urine Creatinine Urine Total Protein Vancomycin Trough 07/19/19 07/20/19 07/20/19 12:24 04:33 04:33 WBC 12.3 H RBC Hgb 11.0 L Hct 33.9 L MCV MCH MCHC RDW 19.6 H Plt Count Lymph % (Auto) [place] % (Auto) Eos % (Auto) Lymph # [place] # Eos # Seg Neutrophils % 70.8 H Seg Neuts % (Manual) Lymphocytes % (Manual) Monocytes % (Manual) Eosinophils % (Manual) Nucleated RBC % Seg Neutrophils # 8.7 H Seg Neutrophils # Man Lymphocytes # (Manual) Monocytes # (Manual) Eosinophils # (Manual) PT INR APTT Fibrinogen POC ABG pH ABG pH POC ABG pCO2 POC ABG pO2 ABG pO2 ABG HCO3 ABG O2 Saturation ABG Base Excess ABG Hemoglobin Oxyhemoglobin Sodium Potassium Chloride Carbon Dioxide 20 L BUN Creatinine 0.5 L Glucose 116 H POC Glucose 110 H Uric Acid Calcium Phosphorus Magnesium Iron TIBC AST ALT Total Creatine Kinase CK-MB (CK-2) Troponin T NT-Pro-B Natriuret Pep Total Protein Albumin Triglycerides HDL Cholesterol Folate Urine WBC (Auto) Urine Creatinine Urine Total Protein Vancomycin Trough 07/20/19 07/20/19 07/21/19 12:17 23:49 05:34 WBC RBC Hgb Hct MCV MCH MCHC RDW Plt Count Lymph % (Auto) [place] % (Auto) Eos % (Auto) Lymph # [place] # Eos # Seg Neutrophils % Seg Neuts % (Manual) Lymphocytes % (Manual) Monocytes % (Manual) Eosinophils % (Manual) Nucleated RBC % Seg Neutrophils # Seg Neutrophils # Man Lymphocytes # (Manual) Monocytes # (Manual) Eosinophils # (Manual) PT INR APTT Fibrinogen POC ABG pH ABG pH POC ABG pCO2 POC ABG pO2 ABG pO2 ABG HCO3 ABG O2 Saturation ABG Base Excess ABG Hemoglobin Oxyhemoglobin Sodium Potassium Chloride Carbon Dioxide BUN Creatinine Glucose POC Glucose 117 H 108 H 116 H Uric Acid Calcium Phosphorus Magnesium Iron TIBC AST ALT Total Creatine Kinase CK-MB (CK-2) Troponin T NT-Pro-B Natriuret Pep Total Protein Albumin Triglycerides HDL Cholesterol Folate Urine WBC (Auto) Urine Creatinine Urine Total Protein Vancomycin Trough 07/23/19 07/23/19 07/23/19 05:28 05:28 06:25 WBC RBC 3.41 L Hgb 9.6 L Hct 29.7 L MCV MCH MCHC RDW 19.1 H Plt Count Lymph % (Auto) [place] % (Auto) Eos % (Auto) Lymph # [place] # Eos # Seg Neutrophils % Seg Neuts % (Manual) Lymphocytes % (Manual) Monocytes % (Manual) Eosinophils % (Manual) Nucleated RBC % Seg Neutrophils # Seg Neutrophils # Man Lymphocytes # (Manual) Monocytes # (Manual) Eosinophils # (Manual) PT INR APTT Fibrinogen POC ABG pH ABG pH POC ABG pCO2 POC ABG pO2 ABG pO2 ABG HCO3 ABG O2 Saturation ABG Base Excess ABG Hemoglobin Oxyhemoglobin Sodium Potassium Chloride Carbon Dioxide BUN 8 L Creatinine 0.5 L Glucose POC Glucose 135 H Uric Acid Calcium Phosphorus Magnesium Iron TIBC AST ALT Total Creatine Kinase CK-MB (CK-2) Troponin T NT-Pro-B Natriuret Pep Total Protein Albumin Triglycerides HDL Cholesterol Folate Urine WBC (Auto) Urine Creatinine Urine Total Protein Vancomycin Trough 07/23/19 07/23/19 07/24/19 14:26 16:25 00:45 WBC RBC Hgb Hct MCV MCH MCHC RDW Plt Count Lymph % (Auto) [place] % (Auto) Eos % (Auto) Lymph # [place] # Eos # Seg Neutrophils % Seg Neuts % (Manual) Lymphocytes % (Manual) Monocytes % (Manual) Eosinophils % (Manual) Nucleated RBC % Seg Neutrophils # Seg Neutrophils # Man Lymphocytes # (Manual) Monocytes # (Manual) Eosinophils # (Manual) PT INR APTT Fibrinogen POC ABG pH ABG pH POC ABG pCO2 POC ABG pO2 ABG pO2 ABG HCO3 ABG O2 Saturation ABG Base Excess ABG Hemoglobin Oxyhemoglobin Sodium Potassium Chloride Carbon Dioxide BUN Creatinine Glucose POC Glucose 121 H 115 H 125 H Uric Acid Calcium Phosphorus Magnesium Iron TIBC AST ALT Total Creatine Kinase CK-MB (CK-2) Troponin T NT-Pro-B Natriuret Pep Total Protein Albumin Triglycerides HDL Cholesterol Folate Urine WBC (Auto) Urine Creatinine Urine Total Protein Vancomycin Trough 07/24/19 07/25/19 07/25/19 11:33 08:32 11:54 WBC RBC Hgb Hct MCV MCH MCHC RDW Plt Count Lymph % (Auto) [place] % (Auto) Eos % (Auto) Lymph # [place] # Eos # Seg Neutrophils % Seg Neuts % (Manual) Lymphocytes % (Manual) Monocytes % (Manual) Eosinophils % (Manual) Nucleated RBC % Seg Neutrophils # Seg Neutrophils # Man Lymphocytes # (Manual) Monocytes # (Manual) Eosinophils # (Manual) PT INR APTT Fibrinogen POC ABG pH ABG pH POC ABG pCO2 POC ABG pO2 ABG pO2 ABG HCO3 ABG O2 Saturation ABG Base Excess ABG Hemoglobin Oxyhemoglobin Sodium Potassium Chloride Carbon Dioxide BUN Creatinine Glucose POC Glucose 130 H 110 H 136 H Uric Acid Calcium Phosphorus Magnesium Iron TIBC AST ALT Total Creatine Kinase CK-MB (CK-2) Troponin T NT-Pro-B Natriuret Pep Total Protein Albumin Triglycerides HDL Cholesterol Folate Urine WBC (Auto) Urine Creatinine Urine Total Protein Vancomycin Trough 07/25/19 07/26/19 07/26/19 18:10 05:53 12:17 WBC RBC Hgb Hct MCV MCH MCHC RDW Plt Count Lymph % (Auto) [place] % (Auto) Eos % (Auto) Lymph # [place] # Eos # Seg Neutrophils % Seg Neuts % (Manual) Lymphocytes % (Manual) Monocytes % (Manual) Eosinophils % (Manual) Nucleated RBC % Seg Neutrophils # Seg Neutrophils # Man Lymphocytes # (Manual) Monocytes # (Manual) Eosinophils # (Manual) PT INR APTT Fibrinogen POC ABG pH ABG pH POC ABG pCO2 POC ABG pO2 ABG pO2 ABG HCO3 ABG O2 Saturation ABG Base Excess ABG Hemoglobin Oxyhemoglobin Sodium Potassium Chloride Carbon Dioxide BUN Creatinine Glucose POC Glucose 117 H 107 H 140 H Uric Acid Calcium Phosphorus Magnesium Iron TIBC AST ALT Total Creatine Kinase CK-MB (CK-2) Troponin T NT-Pro-B Natriuret Pep Total Protein Albumin Triglycerides HDL Cholesterol Folate Urine WBC (Auto) Urine Creatinine Urine Total Protein Vancomycin Trough 07/26/19 07/27/19 07/27/19 16:59 00:33 08:00 WBC 12.0 H RBC 3.35 L Hgb 9.4 L Hct 29.3 L MCV MCH MCHC RDW 18.2 H Plt Count Lymph % (Auto) [place] % (Auto) Eos % (Auto) Lymph # [place] # Eos # Seg Neutrophils % Seg Neuts % (Manual) Lymphocytes % (Manual) Monocytes % (Manual) Eosinophils % (Manual) Nucleated RBC % Seg Neutrophils # Seg Neutrophils # Man Lymphocytes # (Manual) Monocytes # (Manual) Eosinophils # (Manual) PT INR APTT Fibrinogen POC ABG pH ABG pH POC ABG pCO2 POC ABG pO2 ABG pO2 ABG HCO3 ABG O2 Saturation ABG Base Excess ABG Hemoglobin Oxyhemoglobin Sodium Potassium Chloride Carbon Dioxide BUN Creatinine Glucose POC Glucose 129 H 110 H Uric Acid Calcium Phosphorus Magnesium Iron TIBC AST ALT Total Creatine Kinase CK-MB (CK-2) Troponin T NT-Pro-B Natriuret Pep Total Protein Albumin Triglycerides HDL Cholesterol Folate Urine WBC (Auto) Urine Creatinine Urine Total Protein Vancomycin Trough 07/27/19 07/27/19 07/28/19 08:00 16:38 12:06 WBC RBC Hgb Hct MCV MCH MCHC RDW Plt Count Lymph % (Auto) [place] % (Auto) Eos % (Auto) Lymph # [place] # Eos # Seg Neutrophils % Seg Neuts % (Manual) Lymphocytes % (Manual) Monocytes % (Manual) Eosinophils % (Manual) Nucleated RBC % Seg Neutrophils # Seg Neutrophils # Man Lymphocytes # (Manual) Monocytes # (Manual) Eosinophils # (Manual) PT INR APTT Fibrinogen POC ABG pH ABG pH POC ABG pCO2 POC ABG pO2 ABG pO2 ABG HCO3 ABG O2 Saturation ABG Base Excess ABG Hemoglobin Oxyhemoglobin Sodium Potassium Chloride 97.7 L Carbon Dioxide BUN Creatinine 0.5 L Glucose 117 H POC Glucose 116 H 122 H Uric Acid Calcium Phosphorus Magnesium Iron TIBC AST ALT Total Creatine Kinase CK-MB (CK-2) Troponin T NT-Pro-B Natriuret Pep Total Protein Albumin Triglycerides HDL Cholesterol Folate Urine WBC (Auto) Urine Creatinine Urine Total Protein Vancomycin Trough 07/28/19 07/29/19 07/29/19 17:10 00:17 06:46 WBC RBC Hgb Hct MCV MCH MCHC RDW Plt Count Lymph % (Auto) [place] % (Auto) Eos % (Auto) Lymph # [place] # Eos # Seg Neutrophils % Seg Neuts % (Manual) Lymphocytes % (Manual) Monocytes % (Manual) Eosinophils % (Manual) Nucleated RBC % Seg Neutrophils # Seg Neutrophils # Man Lymphocytes # (Manual) Monocytes # (Manual) Eosinophils # (Manual) PT INR APTT Fibrinogen POC ABG pH ABG pH POC ABG pCO2 POC ABG pO2 ABG pO2 ABG HCO3 ABG O2 Saturation ABG Base Excess ABG Hemoglobin Oxyhemoglobin Sodium Potassium Chloride Carbon Dioxide BUN Creatinine Glucose POC Glucose 109 H 110 H 112 H Uric Acid Calcium Phosphorus Magnesium Iron TIBC AST ALT Total Creatine Kinase CK-MB (CK-2) Troponin T NT-Pro-B Natriuret Pep Total Protein Albumin Triglycerides HDL Cholesterol Folate Urine WBC (Auto) Urine Creatinine Urine Total Protein Vancomycin Trough 07/29/19 07/29/19 07/29/19 08:50 18:15 23:47 WBC RBC Hgb Hct MCV MCH MCHC RDW Plt Count Lymph % (Auto) [place] % (Auto) Eos % (Auto) Lymph # [place] # Eos # Seg Neutrophils % Seg Neuts % (Manual) Lymphocytes % (Manual) Monocytes % (Manual) Eosinophils % (Manual) Nucleated RBC % Seg Neutrophils # Seg Neutrophils # Man Lymphocytes # (Manual) Monocytes # (Manual) Eosinophils # (Manual) PT INR APTT Fibrinogen POC ABG pH ABG pH POC ABG pCO2 POC ABG pO2 ABG pO2 ABG HCO3 ABG O2 Saturation ABG Base Excess ABG Hemoglobin Oxyhemoglobin Sodium Potassium Chloride Carbon Dioxide BUN Creatinine Glucose POC Glucose 111 H 131 H 123 H Uric Acid Calcium Phosphorus Magnesium Iron TIBC AST ALT Total Creatine Kinase CK-MB (CK-2) Troponin T NT-Pro-B Natriuret Pep Total Protein Albumin Triglycerides HDL Cholesterol Folate Urine WBC (Auto) Urine Creatinine Urine Total Protein Vancomycin Trough 07/30/19 07/30/19 07/30/19 05:48 15:50 23:46 WBC RBC Hgb Hct MCV MCH MCHC RDW Plt Count Lymph % (Auto) [place] % (Auto) Eos % (Auto) Lymph # [place] # Eos # Seg Neutrophils % Seg Neuts % (Manual) Lymphocytes % (Manual) Monocytes % (Manual) Eosinophils % (Manual) Nucleated RBC % Seg Neutrophils # Seg Neutrophils # Man Lymphocytes # (Manual) Monocytes # (Manual) Eosinophils # (Manual) PT INR APTT Fibrinogen POC ABG pH ABG pH POC ABG pCO2 POC ABG pO2 ABG pO2 ABG HCO3 ABG O2 Saturation ABG Base Excess ABG Hemoglobin Oxyhemoglobin Sodium Potassium Chloride Carbon Dioxide BUN Creatinine Glucose POC Glucose 107 H 109 H 109 H Uric Acid Calcium Phosphorus Magnesium Iron TIBC AST ALT Total Creatine Kinase CK-MB (CK-2) Troponin T NT-Pro-B Natriuret Pep Total Protein Albumin Triglycerides HDL Cholesterol Folate Urine WBC (Auto) Urine Creatinine Urine Total Protein Vancomycin Trough 07/31/19 07/31/19 08/01/19 05:53 11:41 00:00 WBC RBC Hgb Hct MCV MCH MCHC RDW Plt Count Lymph % (Auto) [place] % (Auto) Eos % (Auto) Lymph # [place] # Eos # Seg Neutrophils % Seg Neuts % (Manual) Lymphocytes % (Manual) Monocytes % (Manual) Eosinophils % (Manual) Nucleated RBC % Seg Neutrophils # Seg Neutrophils # Man Lymphocytes # (Manual) Monocytes # (Manual) Eosinophils # (Manual) PT INR APTT Fibrinogen POC ABG pH ABG pH POC ABG pCO2 POC ABG pO2 ABG pO2 ABG HCO3 ABG O2 Saturation ABG Base Excess ABG Hemoglobin Oxyhemoglobin Sodium Potassium Chloride Carbon Dioxide BUN Creatinine Glucose POC Glucose 115 H 106 H 117 H Uric Acid Calcium Phosphorus Magnesium Iron TIBC AST ALT Total Creatine Kinase CK-MB (CK-2) Troponin T NT-Pro-B Natriuret Pep Total Protein Albumin Triglycerides HDL Cholesterol Folate Urine WBC (Auto) Urine Creatinine Urine Total Protein Vancomycin Trough
[2019-08-01] MEDS: MULTIVITAMINS 5 ML ORAL LIQUID PO SCH (10:13)
[2019-08-01] MEDS: FERROUS SULFATE 308 MG (62mg Elemental Iron) / 7 ML ELIXIR PO SCH (10:13)
[2019-08-01] MEDS: hydroCHLOROthiazide 25 MG TAB PO SCH (10:14)
[2019-08-01] MEDS: LORazepam 1 MG TAB PO PRN ×2 (10:14→23:31)
[2019-08-01] MEDS: FAMOTIDINE 20 MG TAB PO SCH ×2 (10:14→23:31)
[2019-08-01] MEDS: APIXABAN 2.5 MG TAB PO SCH ×2 (10:14→23:31)
[2019-08-01] MEDS: amLODIPine 10 MG TAB PO SCH (10:14)
[2019-08-02] MEDS: LORazepam 1 MG TAB PO PRN (06:52)
--- NOTE | 2019-08-02 08:52 | Progress Note ---
Assessment and Plan Assessment and plan: Acute respiratory failure; tracheostomy dependent cont trach care, scheduled nebulizers Pulmonary following Obesity hypoventilation syndrome titrate O2 sats to more than 90% Status post cardiac arrest mild anoxic brain injury EEG was negative for seizures and neurology evaluated Oral pharyngeal dysphagia continue tube feeds Anemia of chronic disease Closely monitor H&H and transfuse as needed. 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 Now Patient is on Eliquis Acute kidney injury due to ATN Initially requiring dialysis Resolved, nephrology following. Hypernatremia/Hypokalemia/ hypomagnesemia Resolved Morbid obesity will need weight loss program upon discharge DVT prophylaxis scd /Eliquis Physical therapy/occupational therapy when patient is stable 3/-patient still has intermittent episodes of agitation and requires a safety clothing and equipment developer. I discussed with rn case manager hospice discharge planning and continue discussions with family. 3/patient with agitation last evening and this morning requiring soft wrist restraints. Continue trach care, secretion control and airway management. Tracheostomy is indefinite. Family preparation for trach management. 3/patient still with agitation which remains a problem. Case management still actively working on discharge planning 3patient still with agitation. Case management working on discharge planning. 3patient still with agitation requiring restraints. Case management continues to work on discharge planning. 3patient still with agitation requiring restraints. Continue trach care, secretion control and airway management. Tracheostomy is definite. Continue O2 to maintain sats greater than 92%. Case management is still working diligently to arrange for discharge. Case management reports patient is now arranged for home hospice. Family will need to have teaching for trach care/management. History Interval history: No new issues overnight. Hospitalist Physical - Constitutional Vitals: Temp Pulse Resp BP Pulse Ox 99.0 F 102 H 24 143/94 96 08/02/19 05:52 08/02/19 06:26 08/02/19 05:52 08/02/19 06:26 08/02/19 08:37 General appearance: Present: no acute distress, obese - EENT Eyes: Present: PERRL, EOM intact ENT: hearing intact, clear oral mucosa, dentition normal - Neck Neck: Present: supple, normal ROM - Respiratory Respiratory effort: normal Respiratory: bilateral: CTA - Cardiovascular Rhythm: regular Heart Sounds: Present: S1 & S2. Absent: gallop, rub - Extremities Extremities: no ischemia, No edema, Full ROM - Abdominal General gastrointestinal: soft, non-tender, non-distended, normal bowel sounds - Integumentary Integumentary: Present: clear, warm, dry - Neurologic Neurologic: CNII-XII intact, moves all extremities Results - Labs CBC & Chem 7: 07/27/19 08:00 07/27/19 08:00 Labs: Laboratory Last Values WBC 12.0 K/mm3 (4.5-11.0) H 07/27/19 08:00 RBC 3.35 M/mm3 (3.65-5.03) L 07/27/19 08:00 Hgb 9.4 gm/dl (11.8-15.2) L 07/27/19 08:00 Hct 29.3 % (35.5-45.6) L 07/27/19 08:00 MCV 88 fl (84-94) 07/27/19 08:00 MCH 28 pg (28-32) 07/27/19 08:00 MCHC 32 % (32-34) 07/27/19 08:00 RDW 18.2 % (13.2-15.2) H 07/27/19 08:00 Plt Count 341 K/mm3 (140-440) 07/27/19 08:00 Lymph % (Auto) 19.2 % (13.4-35.0) 07/20/19 04:33 App[place] % (Auto) 6.1 % (0.0-7.3) 07/20/19 04:33 Eos % (Auto) 2.8 % (0.0-4.3) 07/20/19 04:33 Baso % (Auto) 1.1 % (0.0-1.8) 07/20/19 04:33 Lymph # 2.4 K/mm3 (1.2-5.4) 07/20/19 04:33 Appling # 0.8 K/mm3 (0.0-0.8) 07/20/19 04:33 Eos # 0.3 K/mm3 (0.0-0.4) 07/20/19 04:33 Baso # 0.1 K/mm3 (0.0-0.1) 07/20/19 04:33 Add Manual Diff Complete 07/08/19 04:00 Total Counted 100 07/08/19 04:00 Seg Neutrophils % 70.8 % (40.0-70.0) H 07/20/19 04:33 Seg Neuts % (Manual) 76.0 % (40.0-70.0) H 07/08/19 04:00 Band Neutrophils % 0 % 07/08/19 04:00 Lymphocytes % (Manual) 16.0 % (13.4-35.0) 07/08/19 04:00 Reactive Lymphs % (Man) 0 % 07/08/19 04:00 Monocytes % (Manual) 6.0 % (0.0-7.3) 07/08/19 04:00 Eosinophils % (Manual) 2.0 % (0.0-4.3) 07/08/19 04:00 Basophils % (Manual) 0 % (0.0-1.8) 07/08/19 04:00 Metamyelocytes % 0 % 07/08/19 04:00 Myelocytes % 0 % 07/08/19 04:00 Promyelocytes % 0 % 07/08/19 04:00 Blast Cells % 0 % 07/08/19 04:00 Nucleated RBC % Not Reportable 07/08/19 04:00 Seg Neutrophils # 8.7 K/mm3 (1.8-7.7) H 07/20/19 04:33 Seg Neutrophils # Man 8.4 K/mm3 (1.8-7.7) H 07/08/19 04:00 Band Neutrophils # 0.0 K/mm3 07/08/19 04:00 Lymphocytes # (Manual) 1.8 K/mm3 (1.2-5.4) 07/08/19 04:00 Abs React Lymphs (Man) 0.0 K/mm3 07/08/19 04:00 Monocytes # (Manual) 0.7 K/mm3 (0.0-0.8) 07/08/19 04:00 Eosinophils # (Manual) 0.2 K/mm3 (0.0-0.4) 07/08/19 04:00 Basophils # (Manual) 0.0 K/mm3 (0.0-0.1) 07/08/19 04:00 Metamyelocytes # 0.0 K/mm3 07/08/19 04:00 Myelocytes # 0.0 K/mm3 07/08/19 04:00 Promyelocytes # 0.0 K/mm3 07/08/19 04:00 Blast Cells # 0.0 K/mm3 07/08/19 04:00 WBC Morphology Not Reportable 07/08/19 04:00 Hypersegmented Neuts Not Reportable 07/08/19 04:00 Hyposegmented Neuts Not Reportable 07/08/19 04:00 Hypogranular Neuts Not Reportable 07/08/19 04:00 Smudge Cells Not Reportable 07/08/19 04:00 Toxic Granulation Not Reportable 07/08/19 04:00 Toxic Vacuolation Not Reportable 07/08/19 04:00 Dohle Bodies Not Reportable 07/08/19 04:00 Pelger-Huet Anomaly Not Reportable 07/08/19 04:00 Renea Rods Not Reportable 07/08/19 04:00 Platelet Estimate Consistent w auto 07/08/19 04:00 Clumped Platelets Not Reportable 07/08/19 04:00 Plt Clumps, EDTA Not Reportable 07/08/19 04:00 Large Platelets Not Reportable 07/08/19 04:00 Giant Platelets Not Reportable 07/08/19 04:00 Platelet Satelliting Not Reportable 07/08/19 04:00 Plt Morphology Comment Not Reportable 07/08/19 04:00 RBC Morphology Not Reportable 07/08/19 04:00 Dimorphic RBCs Not Reportable 07/08/19 04:00 Polychromasia Not Reportable 07/08/19 04:00 Hypochromasia Not Reportable 07/08/19 04:00 Poikilocytosis Not Reportable 07/08/19 04:00 Anisocytosis 1+ 07/08/19 04:00 Microcytosis Not Reportable 07/08/19 04:00 Macrocytosis Not Reportable 07/08/19 04:00 Spherocytes Not Reportable 07/08/19 04:00 Pappenheimer Bodies Not Reportable 07/08/19 04:00 Sickle Cells Not Reportable 07/08/19 04:00 Target Cells Not Reportable 07/08/19 04:00 Tear Drop Cells Not Reportable 07/08/19 04:00 Ovalocytes Not Reportable 07/08/19 04:00 Stomatocytes 3+ 06/23/19 05:24 Helmet Cells Not Reportable 07/08/19 04:00 Segovia-Ernest Bodies Not Reportable 07/08/19 04:00 [place] Rings Not Reportable 07/08/19 04:00 Dennis Cells Not Reportable 07/08/19 04:00 Bite Cells Not Reportable 07/08/19 04:00 Crenated Cell Not Reportable 07/08/19 04:00 Elliptocytes Not Reportable 07/08/19 04:00 Acanthocytes (Spur) Not Reportable 07/08/19 04:00 Rouleaux Not Reportable 07/08/19 04:00 Hemoglobin C Crystals Not Reportable 07/08/19 04:00 Schistocytes Not Reportable 07/08/19 04:00 Malaria parasites Not Reportable 07/08/19 04:00 Syed Bodies Not Reportable 07/08/19 04:00 Hem Pathologist Commnt No 07/08/19 04:00 PT 15.4 Sec. (12.2-14.9) H 05/01/19 Unknown INR 1.23 (0.87-1.13) H 05/01/19 Unknown APTT 22.7 Sec. (24.2-36.6) L 05/01/19 Unknown Fibrinogen 194 mg/dl (211-480) L 06/17/19 12:45 Heparin Anti-Xa, Unfract Negative (Negative) 06/17/19 12:45 POC ABG pH 7.462 (7.35-7.45) H 06/05/19 03:52 ABG pH 7.469 pH Units (7.350-7.450) H 06/23/19 02:00 POC ABG pCO2 39.8 (35-45) 06/05/19 03:52 ABG pCO2 39.4 mm Hg 06/23/19 02:00 POC ABG pO2 86 (80-105) 06/05/19 03:52 ABG pO2 58.7 mm Hg (80.0-90.0) L 06/23/19 02:00 POC ABG HCO3 28.4 (22-26 mml/L) 06/05/19 03:52 ABG HCO3 28.0 mmol/L (20.0-26.0) H 06/23/19 02:00 POC ABG Total CO2 30 (23-27mmol/L) 06/05/19 03:52 POC ABG O2 Sat 97 01/11/20 03:52 ABG O2 Saturation 94.6 % (95.0-99.0) L 06/23/19 02:00 ABG O2 Content 9.2 (0.0-44) 06/23/19 02:00 POC ABG Base Excess 5 ((-2) - (+3)mmol/L) 06/05/19 03:52 ABG Base Excess 4.0 mmol/L (-2.0-3.0) H 06/23/19 02:00 ABG Hemoglobin 7.1 gm/dl (14.0-18.0) L 06/23/19 02:00 ABG Carboxyhemoglobin 2.0 % (0.0-5.0) 06/23/19 02:00 ABG Methemoglobin 0.5 % (0.0-1.5) 06/23/19 02:00 Oxyhemoglobin 92.2 % (95.0-99.0) L 06/23/19 02:00 FiO2 30 % 06/23/19 02:00 Sodium 140 mmol/L (137-145) 07/27/19 08:00 Potassium 4.1 mmol/L (3.6-5.0) 07/27/19 08:00 Chloride 97.7 mmol/L (98-107) L 07/27/19 08:00 Carbon Dioxide 24 mmol/L (22-30) 07/27/19 08:00 Anion Gap 22 mmol/L 07/27/19 08:00 BUN 9 mg/dL (9-20) 07/27/19 08:00 Creatinine 0.5 mg/dL (0.8-1.5) L 07/27/19 08:00 Estimated GFR > 60 ml/min 07/27/19 08:00 BUN/Creatinine Ratio 18 % 07/27/19 08:00 Glucose 117 mg/dL (75-100) H 07/27/19 08:00 POC Glucose 98 (70-105) 08/02/19 05:13 Osmolality 327 Mosm/kg 05/07/19 13:45 Uric Acid 18.0 mg/dL (3.5-7.6) H 05/07/19 13:45 Calcium 9.5 mg/dL (8.4-10.2) 07/27/19 08:00 Phosphorus 3.70 mg/dL (2.5-4.5) 06/10/19 05:45 Magnesium 1.60 mg/dL (1.7-2.3) L 06/26/19 04:43 Iron 45 ug/dL (49-181) L 06/20/19 09:12 TIBC 110 mcg/dL (250-450) L 06/20/19 09:12 Ferritin 315.2 ng/mL (13.0-400.0) 06/20/19 09:12 Total Bilirubin 0.50 mg/dL (0.1-1.2) 06/08/19 04:20 AST 23 units/L (5-40) 06/08/19 04:20 ALT 66 units/L (7-56) H 06/08/19 04:20 Alkaline Phosphatase 59 units/L (35-129) 06/08/19 04:20 Total Creatine Kinase 131 units/L (55-170) 05/02/19 04:41 CK-MB (CK-2) 5.2 ng/mL (0.0-4.0) H 05/02/19 04:41 CK-MB (CK-2) Rel Index 3.9 (0-4) 05/02/19 04:41 Troponin T 0.067 ng/mL (0.00-0.029) H D 05/02/19 04:41 NT-Pro-B Natriuret Pep 6831 pg/mL (0-450) H 05/01/19 Unknown Total Protein 5.5 g/dL (6.3-8.2) L 06/08/19 04:20 Albumin 2.9 g/dL (3.9-5) L 06/08/19 04:20 Albumin/Globulin Ratio 1.1 % 06/08/19 04:20 Triglycerides 210 mg/dL (2-149) H 06/19/19 04:30 Cholesterol 173 mg/dL (50-199) 05/02/19 00:06 LDL Cholesterol Direct 126 mg/dL (50-130) 05/02/19 00:06 HDL Cholesterol 18 mg/dL (40-59) L 05/02/19 00:06 Cholesterol/HDL Ratio 9.61 % 05/02/19 00:06 Serotonin Release Assay See scanned results 06/17/19 12:45 Vitamin B12 353.0 pg/mL (211-911) 06/20/19 09:12 Folate 7.01 ng/mL (7.3-26.0) L 06/20/19 09:12 Procalcitonin 0.05 ng/mL (<0.15) 06/17/19 12:45 Urine Color Yellow (Yellow) 06/17/19 12:45 Urine Turbidity Slightly-cloudy (Clear) 06/17/19 12:45 Urine pH 5.0 (5.0-7.0) 06/17/19 12:45 Ur Specific Isabella 1.013 (1.003-1.030) 06/17/19 12:45 Urine Protein <15 mg/dl mg/dL (Negative) 06/17/19 12:45 Urine Glucose (UA) Neg mg/dL (Negative) 06/17/19 12:45 Urine Ketones Neg mg/dL (Negative) 06/17/19 12:45 Urine Blood Sm (Negative) 06/17/19 12:45 Urine Nitrite Neg (Negative) 06/17/19 12:45 Urine Bilirubin Neg (Negative) 06/17/19 12:45 Urine Urobilinogen < 2.0 mg/dL (<2.0) 06/17/19 12:45 Ur Leukocyte Esterase Neg (Negative) 06/17/19 12:45 Urine WBC (Auto) 2.0 /HPF (0.0-6.0) 06/17/19 12:45 Urine RBC (Auto) 2.0 /HPF (0.0-6.0) 06/17/19 12:45 U Epithel Cells (Auto) < 1.0 /HPF (0-13.0) 06/17/19 12:45 Urine Bacteria (Auto) 1+ /HPF (Negative) 05/20/19 12:00 Uric Acid Crystals 3+ 05/03/19 10:55 Urine Mucus Few /HPF 06/17/19 12:45 Urine Yeast (Budding) 3+ /HPF 05/20/19 12:00 Urine Creatinine 292.8 mg/dL (0.1-20.0) H 05/07/19 22:40 Urine Sodium 11 mmol/L 05/07/19 22:40 Urine Total Protein 269 mg/dL (5-11.8) H 05/07/19 22:40 Vancomycin Trough 20.5 ug/mL (5.0-20.0) H 05/15/19 09:00 Random Vancomycin 11.5 ug/mL (0-40.0) 05/27/19 06:00 AMNA Screen Negative (Negative) 05/07/19 13:45 Heparin-induced Plt Ab Negative (Negative) 06/17/19 12:45 UF Heparin High Dose 13 % Release 06/17/19 12:45 YUNG UFH Low Dose 0.1 8 % Release 06/17/19 12:45 YUNG UFH Low Dose 0.5 7 % Release 06/17/19 12:45 Hepatitis A IgM Ab Non-reactive (NonReactive) 05/07/19 13:45 Hep Bs Antigen Non-reactive (Negative) 05/07/19 13:45 Hep B Core IgM Ab Non-reactive (NonReactive) 05/07/19 13:45 Hepatitis C Antibody Non-reactive (NonReactive) 05/07/19 13:45 Influenza A (Rapid) Negative (Negative) 06/17/19 11:35 Influenza B (Rapid) Negative (Negative) 06/17/19 11:35 Active Medications - Current Medications Current Medications: Generic Name Dose Route Start Last Admin Trade Name Freq PRN Reason Stop Dose Admin Acetaminophen 650 mg 07/02/19 23:56 07/28/19 21:16 Tylenol PO 650 mg Q4H PRN Administration Pain, Mild (1-3) Amlodipine Besylate 10 mg 07/25/19 10:00 08/01/19 10:14 Amlodipine PO 10 mg DAILY VICKEY Administration Lipase/Protease/Amylase 1 each 07/15/19 12:[address] 10,500 Unit FEEDTUBE PRN PRN For Clogged Feeding Tube Apixaban 2.5 mg 06/23/19 22:00 08/01/19 23:31 Eliquis PO 2.5 mg Q12HR VICKEY Administration Protocol Dextrose 50 gm 05/01/19 20:24 D50w (25gm) Vial IV Q30MIN PRN Hypoglycemia Protocol Famotidine 20 mg 06/17/19 10:00 08/01/19 23:31 Pepcid PO 20 mg BID VICKEY Administration Ferrous Sulfate 308 mg 06/18/19 12:00 08/01/19 10:13 Ferrous Sulfate PO 308 mg QDAY VICKEY Administration Hydrochlorothiazide 25 mg 06/26/19 11:00 08/01/19 10:14 Hctz PO 25 mg QDAY VICKEY Administration Labetalol HCl 200 mg 06/28/19 10:00 08/02/19 06:26 Labetalol PO 200 mg Q8HR VICKEY Administration Lorazepam 1 mg 07/29/19 18:38 08/02/19 06:52 Ativan PO 1 mg Q8H PRN Administration Agitation Multi-Ingred Cream/Lotion/Oil/Oint 1 applic 06/16/19 18:00 Artificial Tears Ophth Oint OU Q4HR PRN Dry Eye(s) Multivitamins 5 ml 06/29/19 12:00 08/01/19 10:13 Centrum Liq PO 5 ml QDAY VICKEY Administration Ondansetron HCl 4 mg 07/22/19 16:14 Zofran IV Q8H PRN Nausea And Vomiting Scopolamine 1 each 06/27/19 09:00 07/30/19 09:59 Transderm-Scop TD 1 each Q3D VICKEY Administration Simple Syrup 15 ml 07/15/19 12:26 Simple Syrup FEEDTUBE PRN PRN Hypoglycemia Simple Syrup 30 ml 07/15/19 12:26 Simple Syrup FEEDTUBE PRN PRN Hypoglycemia Sodium Bicarbonate 325 mg 07/15/19 12:26 Sodium Bicarbonate FEEDTUBE PRN PRN For Clogged Feeding Tube Nutrition/Malnutrition Assess - Dietary Evaluation Nutrition/Malnutrition Findings: Nutrition Notes Start: 05/04/19 12:54 Freq: Status: Active Protocol: Document 07/30/19 13:20 KS (Rec: 07/30/19 13:26 KS [id number]) Co-Sign 07/30/19 13:20 LM Nutrition Notes Initial or Follow up Reassessment Current Diagnosis Acute Kidney Injury,Sepsis, Respiratory Failure Current Diet Osmolite 1.5 at 60 ml/hr Labs/Tests POC Glu 107 Pertinent Medications Reviewed Height 6 ft 4 in Weight 183.2 kg [place] Body Weight (kg) 91.81 BMI 49.1 Weight change and time frame wt change noted Weight Status Morbidly Obese Subjective/Other Information Osmolite observed running at 60mL/hr at time of visit. Pt tolerating TF. Percent of energy/protein needs met: 100%/100% Burn Absent Trauma Absent GI Symptoms None Current % PO Negligible Minimum of two criteria No Fluid Accumulation Moderate to Severe (severe) #1 Nutrition Diagnosis Inadequate oral intake Diagnosis Progress(for reassessment Continues documentation) Is patient on ventilator? Yes Is Patient Ambulatory and/or Out of Bed No REE-([facility]-confined to bed) 3455.172 Kcal/Kg value to use for calculation 11 Approximate Energy Requirements Using 2015 kcal/Kg Calculation Used for Recommendations Kcal/kg Additional Notes PRO needs: 73-91g (0.8-1 g/kg IBW 91kg CARLA resolved) Fluid needs: 1 ml/kcal Nutrition Intervention Change Diet Order: Continue TF Nutrition Support: Osmolite at 60 ml/hr Flush 200 ml q4h Kcal 2,160 Protein (gm) 90 Fluid (mL) 1,097 Goal #1 TF tolerance Goal #2 Meet at least 80% of PRO/kcal needs via TF Anticipated Discharge Needs: Bolus Jevity 1.2 7 cans/day 2 cans for breakfast 2 cans for lunch 1 can scack 2 cans dinner Flush 100 ml before and after each bolus (breakfast, lunch, snack, and dinner) Follow-Up By: 08/02/19 Additional Comments F/U for TF/POC
--- NOTE | 2019-08-02 09:09 | Progress Note ---
Assessment and Plan 34 y/o male with acute hypoxic, hypercapnic respiratory failure now with trach and uncontrolled hypertension. 08/02/2019: Stable pulm status. Could consider scheduled haldol to help with agitation. Patient does sleep alot during the day. May have a component of delirium associated with this. 07/30/2019: Now on room air. Stable. CM should be planning discharge home. Will see as needed over the weekend 07/28/2019: No new recs. Continue trach care and trach is indefinite. Family preparation for trach management 07/27/2019: No new recs. Tolerated trach change. Trach is indefinite. Pulm status stable for discharge. Family will need to be trained on trach care. 07/23/2019: No new recs. Would suggest moving patient closer to nursing station. Will see PRN over the weekend 07/21/2019: No new recs. Pulm status stable. Placement is barrier to discharge given lack of funding and mother not responding. 07/19/2019: Stable pulm status. Per CM called mother to discuss goals of care but she has not responded. 07/16/2019: Stable pulm status. Will see PRN over the weekend. 07/15/2019: Patient has been stable pulm murphy thus far. No objection with transfer to [facility], close to nursing station though given history of patient pulling out trach. 07/13/2019: No new recs from today. Please see below. 07/10/2019: Continue PT/OT 07/09/2019: No new recs for today. Contiue PT/OT. Disposition is unknown secondary to lack of funding. 07/08/19: No new recs for today. Contiue PT/OT. Disposition is unknown secondary to lack of funding. 07/07/19. Stopping prednisone as this wasn't stopped over the weekend. Needs suctioning and asked that if transferred please place patient close as possible to nursing station. 07/06/19: Continue IMCU care. Requires frequent suctioning. PT/OT 07/02/19: Patient should not be transferred to the floor. Although his pulm status is stable, he is very high risk for decompensation and if the incident that happened last night, happened on the floor, that may have been his demise. Ok with right arm restraint for now. 07/01/2019: Continue current care. PT/OT. Work on discharge planning. steroids to 5 daily, will likely stop Friday or Friday. Stable but my concern is that if he goes to the floor, he will not get the proper suctioning needed. Will continue IMCU service 06/26/2019: Will discontinue vent from room. patient was placed on vent last night. Not sure why. Will place orders for continued T-piece. Appears he was doing well with no issues. If tolerates being off vent tonight, transition to step down tomorrow. Increase HCTZ to 25 06/25/2019: Continue T-piece today as tolerated. Only rest of vent if needed. If not needed tonight then will discontinue vent from room. Spoke with IR, and they will remove Perm cath today as this could be a cause of fevers. Follow up cultures and ID recs. Will increase Free H2O to [id number]. Change steroids to 10 PO starting tomorrow morning. Added scheduled BP meds. 06/24/2019: Will attempt T-piece later today, if tolerates, then will continue trial indefinitely. PT/OT will need to start seeing him again. Will drop steroids to 10 daily (PO) starting Friday morning. 06/23/2019: PSV all day today and tomorrow. Will start T-piece either tomorrow or Friday. Tolerating Feeds 06/22/2019: Patient scheduled for OR today. Plan as outlined in Dr. Saez's note from yesterday. Discussed with patient again this am. Really appreciate surgery help with this and the promptness of procedure. Will follow up post-op later today. 06/21/2019: Unfortunately re-intubated last week. Will need Trach and Peg, but I doubt peg will happen secondary to his size. Will discuss with surgery and maybe they can just put in a number 6 XLT from the start. I think he will get off the vent relatively quickly and can start to eat. This trach will be indefinite. I have explained this to him. I have not seen his family at the bedside during this admission but Im told they come in the evenings. 06/12/2019: Started HCTZ 50 daily and Labetalol 100 TID. Will increase Labetalol to 200 TID. Already on Clonidine patch. Continue Minoxidil. Will start to wean drip. PT/OT. Feeds through NG now that this is in place. Will need speech re-evaluation. Will order NT suctioning at least i5fatps for the next 24 hours. 06/11/2019: Bipap at night and PRN. Na levels are increasing. Agree with D5W. Unable to place DH, several nurses tried. Will ask speech to come by and reassess now that patient is more willing to cooperate. . Continue PT/OT, sat up on side of bed yesterday. Continue IMCU monitoring for now. As stated below, patient was intubated for 37 days. CCT 31 minutes. Subjective Date of service: 08/02/19 Principal diagnosis: anemia - LOw PLT Interval history: No acute events overnight or the weekend. Per IMS note, agitation has been an issue. Objective Vital Signs - 12hr 08/01/19 08/01/19 08/01/19 22:00 22:23 23:26 Temperature 98.3 F Pulse Rate 90 91 H Respiratory 16 20 Rate Blood Pressure 135/59 130/79 O2 Sat by Pulse 96 95 Oximetry O2 Sat by Pulse Oximetry [ Assessment] 08/01/19 08/02/19 08/02/19 23:30 05:52 06:26 Temperature 99.0 F Pulse Rate 93 H 102 H 102 H Respiratory 24 Rate Blood Pressure 130/79 143/94 143/94 O2 Sat by Pulse 93 Oximetry O2 Sat by Pulse Oximetry [ Assessment] 08/02/19 08/02/19 08:27 08:37 Temperature Pulse Rate Respiratory Rate Blood Pressure O2 Sat by Pulse 96 Oximetry O2 Sat by Pulse 96 Oximetry [ Assessment] Constitutional: other (morbidly obese male,on trach tpiece) Eyes: non-icteric ENT: oropharynx moist Neck: supple, other (extremely large in circumference trach in place) Effort: normal Ascultation: Bilateral: diminished breath sounds (secondary to body habitus), rhonchi, other (Upper airway noises due to secretions) Cardiovascular: regular rate and rhythm (no mrg) Gastrointestinal: normoactive bowel sounds, soft, non-tender, other (obese) Integumentary: other (L hand is wrapped) Extremities: no cyanosis, pink and warm, other (1+ generalized edema) Neurologic: normal mental status, non-focal exam Psychiatric: mood appropriate, affect normal CBC and BMP: 07/27/19 08:00 07/27/19 08:00 ABG, PT/INR, D-dimer: ABG POC ABG pH 7.462 (7.35-7.45) H 06/05/19 03:52 ABG pH 7.469 pH Units (7.350-7.450) H 06/23/19 02:00 POC ABG pCO2 39.8 (35-45) 06/05/19 03:52 ABG pCO2 39.4 mm Hg 06/23/19 02:00 POC ABG pO2 86 (80-105) 06/05/19 03:52 ABG pO2 58.7 mm Hg (80.0-90.0) L 06/23/19 02:00 POC ABG HCO3 28.4 (22-26 mml/L) 06/05/19 03:52 POC ABG Total CO2 30 (23-27mmol/L) 06/05/19 03:52 POC ABG O2 Sat 97 06/05/19 03:52 ABG O2 Saturation 94.6 % (95.0-99.0) L 06/23/19 02:00 PT/INR, D-dimer PT 15.4 Sec. (12.2-14.9) H 05/01/19 Unknown INR 1.23 (0.87-1.13) H 05/01/19 Unknown Abnormal lab findings: Abnormal Labs 05/01/19 05/01/19 05/01/19 17:50 19:26 22:36 WBC RBC Hgb Hct MCV MCH MCHC RDW Plt Count Lymph % (Auto) [place] % (Auto) Eos % (Auto) Lymph # [place] # Eos # Seg Neutrophils % Seg Neuts % (Manual) Lymphocytes % (Manual) Monocytes % (Manual) Eosinophils % (Manual) Nucleated RBC % Seg Neutrophils # Seg Neutrophils # Man Lymphocytes # (Manual) Monocytes # (Manual) Eosinophils # (Manual) PT INR APTT Fibrinogen POC ABG pH 7.272 L 7.331 L ABG pH POC ABG pCO2 52.8 H POC ABG pO2 ABG pO2 ABG HCO3 ABG O2 Saturation ABG Base Excess ABG Hemoglobin Oxyhemoglobin Sodium 136 L Potassium 6.5 H* Chloride 97.2 L Carbon Dioxide BUN 60 H Creatinine Glucose 113 H POC Glucose Uric Acid Calcium Phosphorus Magnesium 2.40 H Iron TIBC AST 139 H ALT 154 H Total Creatine Kinase CK-MB (CK-2) Troponin T NT-Pro-B Natriuret Pep Total Protein Albumin 3.8 L Triglycerides HDL Cholesterol Folate Urine WBC (Auto) Urine Creatinine Urine Total Protein Vancomycin Trough 05/01/19 05/01/19 05/01/19 Unknown Unknown Unknown WBC 16.1 H RBC Hgb Hct MCV MCH MCHC RDW 17.2 H Plt Count Lymph % (Auto) [place] % (Auto) 9.6 H Eos % (Auto) Lymph # [place] # 1.5 H Eos # Seg Neutrophils % 73.0 H Seg Neuts % (Manual) Lymphocytes % (Manual) Monocytes % (Manual) Eosinophils % (Manual) Nucleated RBC % Seg Neutrophils # 11.7 H Seg Neutrophils # Man Lymphocytes # (Manual) Monocytes # (Manual) Eosinophils # (Manual) PT 15.4 H INR 1.23 H APTT 22.7 L Fibrinogen POC ABG pH ABG pH POC ABG pCO2 POC ABG pO2 ABG pO2 ABG HCO3 ABG O2 Saturation ABG Base Excess ABG Hemoglobin Oxyhemoglobin Sodium Potassium Chloride Carbon Dioxide BUN Creatinine Glucose POC Glucose Uric Acid Calcium Phosphorus Magnesium Iron TIBC AST ALT Total Creatine Kinase CK-MB (CK-2) Troponin T NT-Pro-B Natriuret Pep 6831 H Total Protein Albumin Triglycerides HDL Cholesterol Folate Urine WBC (Auto) Urine Creatinine Urine Total Protein Vancomycin Trough 05/01/19 05/02/19 05/02/19 Unknown 00:06 00:06 WBC RBC Hgb Hct MCV MCH MCHC RDW Plt Count Lymph % (Auto) [place] % (Auto) Eos % (Auto) Lymph # [place] # Eos # Seg Neutrophils % Seg Neuts % (Manual) Lymphocytes % (Manual) Monocytes % (Manual) Eosinophils % (Manual) Nucleated RBC % Seg Neutrophils # Seg Neutrophils # Man Lymphocytes # (Manual) Monocytes # (Manual) Eosinophils # (Manual) PT INR APTT Fibrinogen POC ABG pH ABG pH POC ABG pCO2 POC ABG pO2 ABG pO2 ABG HCO3 ABG O2 Saturation ABG Base Excess ABG Hemoglobin Oxyhemoglobin Sodium Potassium Chloride Carbon Dioxide BUN Creatinine Glucose POC Glucose Uric Acid Calcium Phosphorus 4.90 H Magnesium Iron TIBC AST ALT Total Creatine Kinase 226 H CK-MB (CK-2) 5.7 H Troponin T 0.044 H NT-Pro-B Natriuret Pep Total Protein Albumin Triglycerides 182 H HDL Cholesterol 18 L Folate Urine WBC (Auto) Urine Creatinine Urine Total Protein Vancomycin Trough 05/02/19 05/02/19 05/02/19 02:08 04:40 04:41 WBC 17.6 H RBC Hgb Hct MCV MCH 27 L MCHC RDW 17.4 H Plt Count Lymph % (Auto) 10.[address] [place] % (Auto) 11.0 H Eos % (Auto) Lymph # [place] # 1.9 H Eos # Seg Neutrophils % 78.0 H Seg Neuts % (Manual) Lymphocytes % (Manual) Monocytes % (Manual) Eosinophils % (Manual) Nucleated RBC % Seg Neutrophils # 13.8 H Seg Neutrophils # Man Lymphocytes # (Manual) Monocytes # (Manual) Eosinophils # (Manual) PT INR APTT Fibrinogen POC ABG pH ABG pH POC ABG pCO2 46.8 H POC ABG pO2 63 L ABG pO2 ABG HCO3 ABG O2 Saturation ABG Base Excess ABG Hemoglobin Oxyhemoglobin Sodium Potassium Chloride 96.3 L Carbon Dioxide BUN 63 H Creatinine 1.7 H Glucose POC Glucose Uric Acid Calcium Phosphorus Magnesium Iron TIBC AST ALT Total Creatine Kinase CK-MB (CK-2) Troponin T NT-Pro-B Natriuret Pep Total Protein Albumin Triglycerides HDL Cholesterol Folate Urine WBC (Auto) Urine Creatinine Urine Total Protein Vancomycin Trough 05/02/19 05/02/19 05/02/19 04:41 04:41 16:05 WBC RBC Hgb Hct MCV MCH MCHC RDW Plt Count Lymph % (Auto) [place] % (Auto) Eos % (Auto) Lymph # [place] # Eos # Seg Neutrophils % Seg Neuts % (Manual) Lymphocytes % (Manual) Monocytes % (Manual) Eosinophils % (Manual) Nucleated RBC % Seg Neutrophils # Seg Neutrophils # Man Lymphocytes # (Manual) Monocytes # (Manual) Eosinophils # (Manual) PT INR APTT Fibrinogen POC ABG pH ABG pH POC ABG pCO2 POC ABG pO2 ABG pO2 66.6 L ABG HCO3 31.9 H ABG O2 Saturation 92.5 L ABG Base Excess 5.8 H ABG Hemoglobin 13.3 L Oxyhemoglobin 90.6 L Sodium Potassium Chloride 97.2 L Carbon Dioxide BUN 61 H Creatinine 1.8 H Glucose POC Glucose Uric Acid Calcium Phosphorus Magnesium Iron TIBC AST ALT Total Creatine Kinase CK-MB (CK-2) 5.2 H Troponin T 0.067 H D NT-Pro-B Natriuret Pep Total Protein Albumin Triglycerides HDL Cholesterol Folate Urine WBC (Auto) Urine Creatinine Urine Total Protein Vancomycin Trough 05/02/19 05/03/19 05/03/19 20:39 04:35 05:05 WBC 11.8 H RBC Hgb Hct MCV MCH 27 L MCHC 31 L RDW 17.2 H Plt Count Lymph % (Auto) [place] % (Auto) Eos % (Auto) Lymph # [place] # Eos # Seg Neutrophils % Seg Neuts % (Manual) Lymphocytes % (Manual) Monocytes % (Manual) Eosinophils % (Manual) Nucleated RBC % Seg Neutrophils # Seg Neutrophils # Man Lymphocytes # (Manual) Monocytes # (Manual) Eosinophils # (Manual) PT INR APTT Fibrinogen POC ABG pH ABG pH POC ABG pCO2 53.6 H 54.0 H POC ABG pO2 55 L 63 L ABG pO2 ABG HCO3 ABG O2 Saturation ABG Base Excess ABG Hemoglobin Oxyhemoglobin Sodium Potassium Chloride Carbon Dioxide BUN Creatinine Glucose POC Glucose Uric Acid Calcium Phosphorus Magnesium Iron TIBC AST ALT Total Creatine Kinase CK-MB (CK-2) Troponin T NT-Pro-B Natriuret Pep Total Protein Albumin Triglycerides HDL Cholesterol Folate Urine WBC (Auto) Urine Creatinine Urine Total Protein Vancomycin Trough 05/03/19 05/03/19 05/03/19 05:05 10:55 16:48 WBC RBC Hgb Hct MCV MCH MCHC RDW Plt Count Lymph % (Auto) [place] % (Auto) Eos % (Auto) Lymph # [place] # Eos # Seg Neutrophils % Seg Neuts % (Manual) Lymphocytes % (Manual) Monocytes % (Manual) Eosinophils % (Manual) Nucleated RBC % Seg Neutrophils # Seg Neutrophils # Man Lymphocytes # (Manual) Monocytes # (Manual) Eosinophils # (Manual) PT INR APTT Fibrinogen POC ABG pH 7.604 H ABG pH POC ABG pCO2 POC ABG pO2 58 L ABG pO2 ABG HCO3 ABG O2 Saturation ABG Base Excess ABG Hemoglobin Oxyhemoglobin Sodium Potassium Chloride Carbon Dioxide BUN 52 H Creatinine 1.9 H Glucose 103 H POC Glucose Uric Acid Calcium Phosphorus Magnesium Iron TIBC AST ALT Total Creatine Kinase CK-MB (CK-2) Troponin T NT-Pro-B Natriuret Pep Total Protein Albumin Triglycerides HDL Cholesterol Folate Urine WBC (Auto) 33.0 H Urine Creatinine Urine Total Protein Vancomycin Trough 05/04/19 05/04/19 05/04/19 04:49 06:50 06:50 WBC 16.0 H RBC Hgb Hct MCV MCH 27 L MCHC 31 L RDW 17.8 H Plt Count Lymph % (Auto) [place] % (Auto) Eos % (Auto) Lymph # [place] # Eos # Seg Neutrophils % Seg Neuts % (Manual) Lymphocytes % (Manual) Monocytes % (Manual) Eosinophils % (Manual) Nucleated RBC % Seg Neutrophils # Seg Neutrophils # Man Lymphocytes # (Manual) Monocytes # (Manual) Eosinophils # (Manual) PT INR APTT Fibrinogen POC ABG pH 7.273 L ABG pH POC ABG pCO2 POC ABG pO2 ABG pO2 ABG HCO3 ABG O2 Saturation ABG Base Excess ABG Hemoglobin Oxyhemoglobin Sodium 148 H Potassium 5.5 H Chloride Carbon Dioxide BUN 53 H Creatinine 3.3 H D Glucose 106 H POC Glucose Uric Acid Calcium 8.3 L Phosphorus Magnesium Iron TIBC AST ALT Total Creatine Kinase CK-MB (CK-2) Troponin T NT-Pro-B Natriuret Pep Total Protein Albumin Triglycerides HDL Cholesterol Folate Urine WBC (Auto) Urine Creatinine Urine Total Protein Vancomycin Trough 05/05/19 05/05/19 05/05/19 00:05 04:30 05:00 WBC RBC Hgb Hct MCV MCH MCHC RDW Plt Count Lymph % (Auto) [place] % (Auto) Eos % (Auto) Lymph # [place] # Eos # Seg Neutrophils % Seg Neuts % (Manual) Lymphocytes % (Manual) Monocytes % (Manual) Eosinophils % (Manual) Nucleated RBC % Seg Neutrophils # Seg Neutrophils # Man Lymphocytes # (Manual) Monocytes # (Manual) Eosinophils # (Manual) PT INR APTT Fibrinogen POC ABG pH 7.225 L ABG pH POC ABG pCO2 > 70 H POC ABG pO2 ABG pO2 ABG HCO3 ABG O2 Saturation ABG Base Excess ABG Hemoglobin Oxyhemoglobin Sodium 151 H Potassium 5.1 H Chloride Carbon Dioxide BUN 64 H Creatinine 3.5 H Glucose 117 H POC Glucose 141 H Uric Acid Calcium 7.5 L Phosphorus Magnesium Iron TIBC AST 93 H ALT 65 H Total Creatine Kinase CK-MB (CK-2) Troponin T NT-Pro-B Natriuret Pep Total Protein Albumin 2.9 L Triglycerides HDL Cholesterol Folate Urine WBC (Auto) Urine Creatinine Urine Total Protein Vancomycin Trough 05/05/19 05/05/19 05/05/19 05:00 12:02 17:46 WBC 12.0 H RBC Hgb 11.3 L Hct MCV MCH 27 L MCHC 30 L RDW 18.4 H Plt Count Lymph % (Auto) 7.[address] [place] % (Auto) 10.2 H Eos % (Auto) Lymph # 1.[address] # 1.2 H Eos # Seg Neutrophils % 80.8 H Seg Neuts % (Manual) Lymphocytes % (Manual) Monocytes % (Manual) Eosinophils % (Manual) Nucleated RBC % Seg Neutrophils # 9.7 H Seg Neutrophils # Man Lymphocytes # (Manual) Monocytes # (Manual) Eosinophils # (Manual) PT INR APTT Fibrinogen POC ABG pH ABG pH POC ABG pCO2 POC ABG pO2 ABG pO2 ABG HCO3 ABG O2 Saturation ABG Base Excess ABG Hemoglobin Oxyhemoglobin Sodium Potassium Chloride Carbon Dioxide BUN Creatinine Glucose POC Glucose 125 H 112 H Uric Acid Calcium Phosphorus Magnesium Iron TIBC AST ALT Total Creatine Kinase CK-MB (CK-2) Troponin T NT-Pro-B Natriuret Pep Total Protein Albumin Triglycerides HDL Cholesterol Folate Urine WBC (Auto) Urine Creatinine Urine Total Protein Vancomycin Trough 05/05/19 05/06/19 05/06/19 23:42 03:58 04:45 WBC 11.4 H RBC Hgb 10.7 L Hct 34.2 L MCV MCH 27 L MCHC 31 L RDW 16.9 H Plt Count Lymph % (Auto) [place] % (Auto) Eos % (Auto) Lymph # [place] # Eos # Seg Neutrophils % Seg Neuts % (Manual) Lymphocytes % (Manual) Monocytes % (Manual) Eosinophils % (Manual) Nucleated RBC % Seg Neutrophils # Seg Neutrophils # Man Lymphocytes # (Manual) Monocytes # (Manual) Eosinophils # (Manual) PT INR APTT Fibrinogen POC ABG pH ABG pH POC ABG pCO2 62.4 H POC ABG pO2 111 H ABG pO2 ABG HCO3 ABG O2 Saturation ABG Base Excess ABG Hemoglobin Oxyhemoglobin Sodium Potassium Chloride Carbon Dioxide BUN Creatinine Glucose POC Glucose 128 H Uric Acid Calcium Phosphorus Magnesium Iron TIBC AST ALT Total Creatine Kinase CK-MB (CK-2) Troponin T NT-Pro-B Natriuret Pep Total Protein Albumin Triglycerides HDL Cholesterol Folate Urine WBC (Auto) Urine Creatinine Urine Total Protein Vancomycin Trough 05/06/19 05/06/19 05/06/19 04:45 05:33 12:30 WBC RBC Hgb Hct MCV MCH MCHC RDW Plt Count Lymph % (Auto) [place] % (Auto) Eos % (Auto) Lymph # [place] # Eos # Seg Neutrophils % Seg Neuts % (Manual) Lymphocytes % (Manual) Monocytes % (Manual) Eosinophils % (Manual) Nucleated RBC % Seg Neutrophils # Seg Neutrophils # Man Lymphocytes # (Manual) Monocytes # (Manual) Eosinophils # (Manual) PT INR APTT Fibrinogen POC ABG pH ABG pH POC ABG pCO2 POC ABG pO2 ABG pO2 ABG HCO3 ABG O2 Saturation ABG Base Excess ABG Hemoglobin Oxyhemoglobin Sodium 149 H Potassium Chloride Carbon Dioxide 31 H BUN 67 H Creatinine 3.2 H Glucose 125 H POC Glucose 117 H 116 H Uric Acid Calcium 7.5 L Phosphorus Magnesium Iron TIBC AST ALT Total Creatine Kinase CK-MB (CK-2) Troponin T NT-Pro-B Natriuret Pep Total Protein Albumin Triglycerides HDL Cholesterol Folate Urine WBC (Auto) Urine Creatinine Urine Total Protein Vancomycin Trough 05/06/19 05/06/19 05/07/19 18:34 23:16 05:22 WBC RBC Hgb Hct MCV MCH MCHC RDW Plt Count Lymph % (Auto) [place] % (Auto) Eos % (Auto) Lymph # [place] # Eos # Seg Neutrophils % Seg Neuts % (Manual) Lymphocytes % (Manual) Monocytes % (Manual) Eosinophils % (Manual) Nucleated RBC % Seg Neutrophils # Seg Neutrophils # Man Lymphocytes # (Manual) Monocytes # (Manual) Eosinophils # (Manual) PT INR APTT Fibrinogen POC ABG pH ABG pH POC ABG pCO2 POC ABG pO2 ABG pO2 ABG HCO3 ABG O2 Saturation ABG Base Excess ABG Hemoglobin Oxyhemoglobin Sodium Potassium Chloride Carbon Dioxide BUN Creatinine Glucose POC Glucose 128 H 143 H 166 H Uric Acid Calcium Phosphorus Magnesium Iron TIBC AST ALT Total Creatine Kinase CK-MB (CK-2) Troponin T NT-Pro-B Natriuret Pep Total Protein Albumin Triglycerides HDL Cholesterol Folate Urine WBC (Auto) Urine Creatinine Urine Total Protein Vancomycin Trough 05/07/19 05/07/19 05/07/19 06:33 07:03 09:35 WBC RBC Hgb Hct MCV MCH MCHC RDW Plt Count Lymph % (Auto) [place] % (Auto) Eos % (Auto) Lymph # [place] # Eos # Seg Neutrophils % Seg Neuts % (Manual) Lymphocytes % (Manual) Monocytes % (Manual) Eosinophils % (Manual) Nucleated RBC % Seg Neutrophils # Seg Neutrophils # Man Lymphocytes # (Manual) Monocytes # (Manual) Eosinophils # (Manual) PT INR APTT Fibrinogen POC ABG pH 7.263 L 7.288 L ABG pH POC ABG pCO2 POC ABG pO2 51 L 56 L ABG pO2 ABG HCO3 ABG O2 Saturation ABG Base Excess ABG Hemoglobin Oxyhemoglobin Sodium Potassium Chloride Carbon Dioxide BUN 76 H Creatinine 3.2 H Glucose 147 H POC Glucose Uric Acid Calcium 7.9 L Phosphorus Magnesium Iron TIBC AST ALT Total Creatine Kinase CK-MB (CK-2) Troponin T NT-Pro-B Natriuret Pep Total Protein Albumin Triglycerides HDL Cholesterol Folate Urine WBC (Auto) Urine Creatinine Urine Total Protein Vancomycin Trough 05/07/19 05/07/19 05/07/19 09:35 12:17 13:45 WBC 13.4 H RBC Hgb 11.6 L Hct MCV MCH 27 L MCHC 31 L RDW 17.5 H Plt Count Lymph % (Auto) [place] % (Auto) Eos % (Auto) Lymph # [place] # Eos # Seg Neutrophils % Seg Neuts % (Manual) Lymphocytes % (Manual) Monocytes % (Manual) Eosinophils % (Manual) Nucleated RBC % Seg Neutrophils # Seg Neutrophils # Man Lymphocytes # (Manual) Monocytes # (Manual) Eosinophils # (Manual) PT INR APTT Fibrinogen POC ABG pH ABG pH POC ABG pCO2 POC ABG pO2 ABG pO2 ABG HCO3 ABG O2 Saturation ABG Base Excess ABG Hemoglobin Oxyhemoglobin Sodium Potassium Chloride Carbon Dioxide BUN Creatinine Glucose POC Glucose 130 H Uric Acid 18.0 H Calcium Phosphorus Magnesium Iron TIBC AST ALT Total Creatine Kinase CK-MB (CK-2) Troponin T NT-Pro-B Natriuret Pep Total Protein Albumin Triglycerides HDL Cholesterol Folate Urine WBC (Auto) Urine Creatinine Urine Total Protein Vancomycin Trough 05/07/19 05/07/19 05/08/19 17:39 22:40 05:06 WBC RBC Hgb Hct MCV MCH MCHC RDW Plt Count Lymph % (Auto) [place] % (Auto) Eos % (Auto) Lymph # [place] # Eos # Seg Neutrophils % Seg Neuts % (Manual) Lymphocytes % (Manual) Monocytes % (Manual) Eosinophils % (Manual) Nucleated RBC % Seg Neutrophils # Seg Neutrophils # Man Lymphocytes # (Manual) Monocytes # (Manual) Eosinophils # (Manual) PT INR APTT Fibrinogen POC ABG pH ABG pH POC ABG pCO2 POC ABG pO2 ABG pO2 ABG HCO3 ABG O2 Saturation ABG Base Excess ABG Hemoglobin Oxyhemoglobin Sodium Potassium Chloride Carbon Dioxide BUN Creatinine Glucose POC Glucose 116 H 148 H Uric Acid Calcium Phosphorus Magnesium Iron TIBC AST ALT Total Creatine Kinase CK-MB (CK-2) Troponin T NT-Pro-B Natriuret Pep Total Protein Albumin Triglycerides HDL Cholesterol Folate Urine WBC (Auto) Urine Creatinine 292.8 H Urine Total Protein 269 H Vancomycin Trough 05/08/19 05/08/19 05/08/19 05:32 11:28 13:48 WBC RBC Hgb Hct MCV MCH MCHC RDW Plt Count Lymph % (Auto) [place] % (Auto) Eos % (Auto) Lymph # [place] # Eos # Seg Neutrophils % Seg Neuts % (Manual) Lymphocytes % (Manual) Monocytes % (Manual) Eosinophils % (Manual) Nucleated RBC % Seg Neutrophils # Seg Neutrophils # Man Lymphocytes # (Manual) Monocytes # (Manual) Eosinophils # (Manual) PT INR APTT Fibrinogen POC ABG pH ABG pH POC ABG pCO2 45.4 H POC ABG pO2 64 L ABG pO2 ABG HCO3 ABG O2 Saturation ABG Base Excess ABG Hemoglobin Oxyhemoglobin Sodium Potassium Chloride Carbon Dioxide BUN 73 H Creatinine 2.7 H Glucose 127 H POC Glucose 107 H Uric Acid Calcium 7.6 L Phosphorus Magnesium Iron TIBC AST ALT Total Creatine Kinase CK-MB (CK-2) Troponin T NT-Pro-B Natriuret Pep Total Protein Albumin Triglycerides HDL Cholesterol Folate Urine WBC (Auto) Urine Creatinine Urine Total Protein Vancomycin Trough 05/08/19 05/09/19 05/09/19 17:48 04:50 04:53 WBC RBC 3.07 L Hgb 8.5 L D Hct 29.3 L D MCV 96 H MCH MCHC 29 L RDW 18.1 H Plt Count Lymph % (Auto) [place] % (Auto) Eos % (Auto) Lymph # [place] # Eos # Seg Neutrophils % Seg Neuts % (Manual) Lymphocytes % (Manual) Monocytes % (Manual) Eosinophils % (Manual) Nucleated RBC % Seg Neutrophils # Seg Neutrophils # Man Lymphocytes # (Manual) Monocytes # (Manual) Eosinophils # (Manual) PT INR APTT Fibrinogen POC ABG pH 7.316 L ABG pH POC ABG pCO2 66.0 H POC ABG pO2 69 L ABG pO2 ABG HCO3 ABG O2 Saturation ABG Base Excess ABG Hemoglobin Oxyhemoglobin Sodium Potassium Chloride Carbon Dioxide BUN Creatinine Glucose POC Glucose 155 H Uric Acid Calcium Phosphorus Magnesium Iron TIBC AST ALT Total Creatine Kinase CK-MB (CK-2) Troponin T NT-Pro-B Natriuret Pep Total Protein Albumin Triglycerides HDL Cholesterol Folate Urine WBC (Auto) Urine Creatinine Urine Total Protein Vancomycin Trough 05/09/19 05/09/19 05/09/19 05:46 07:24 12:10 WBC RBC Hgb Hct MCV MCH MCHC RDW Plt Count Lymph % (Auto) [place] % (Auto) Eos % (Auto) Lymph # [place] # Eos # Seg Neutrophils % Seg Neuts % (Manual) Lymphocytes % (Manual) Monocytes % (Manual) Eosinophils % (Manual) Nucleated RBC % Seg Neutrophils # Seg Neutrophils # Man Lymphocytes # (Manual) Monocytes # (Manual) Eosinophils # (Manual) PT INR APTT Fibrinogen POC ABG pH ABG pH POC ABG pCO2 POC ABG pO2 ABG pO2 ABG HCO3 ABG O2 Saturation ABG Base Excess ABG Hemoglobin Oxyhemoglobin Sodium Potassium Chloride Carbon Dioxide BUN 73 H Creatinine 2.4 H Glucose 153 H POC Glucose 123 H 148 H Uric Acid Calcium 8.2 L Phosphorus Magnesium Iron TIBC AST 45 H ALT Total Creatine Kinase CK-MB (CK-2) Troponin T NT-Pro-B Natriuret Pep Total Protein 6.0 L Albumin 1.9 L Triglycerides HDL Cholesterol Folate Urine WBC (Auto) Urine Creatinine Urine Total Protein Vancomycin Trough 05/09/19 05/09/19 05/10/19 18:23 23:26 04:52 WBC RBC Hgb Hct MCV MCH MCHC RDW Plt Count Lymph % (Auto) [place] % (Auto) Eos % (Auto) Lymph # [place] # Eos # Seg Neutrophils % Seg Neuts % (Manual) Lymphocytes % (Manual) Monocytes % (Manual) Eosinophils % (Manual) Nucleated RBC % Seg Neutrophils # Seg Neutrophils # Man Lymphocytes # (Manual) Monocytes # (Manual) Eosinophils # (Manual) PT INR APTT Fibrinogen POC ABG pH 7.305 L ABG pH POC ABG pCO2 62.6 H POC ABG pO2 ABG pO2 ABG HCO3 ABG O2 Saturation ABG Base Excess ABG Hemoglobin Oxyhemoglobin Sodium Potassium Chloride Carbon Dioxide BUN Creatinine Glucose POC Glucose 147 H 121 H Uric Acid Calcium Phosphorus Magnesium Iron TIBC AST ALT Total Creatine Kinase CK-MB (CK-2) Troponin T NT-Pro-B Natriuret Pep Total Protein Albumin Triglycerides HDL Cholesterol Folate Urine WBC (Auto) Urine Creatinine Urine Total Protein Vancomycin Trough 05/10/19 05/10/19 05/10/19 05:00 05:00 05:50 WBC RBC Hgb 10.3 L Hct 33.7 L MCV MCH 27 L MCHC 31 L RDW 17.0 H Plt Count Lymph % (Auto) [place] % (Auto) Eos % (Auto) Lymph # [place] # Eos # Seg Neutrophils % Seg Neuts % (Manual) Lymphocytes % (Manual) Monocytes % (Manual) Eosinophils % (Manual) Nucleated RBC % Seg Neutrophils # Seg Neutrophils # Man Lymphocytes # (Manual) Monocytes # (Manual) Eosinophils # (Manual) PT INR APTT Fibrinogen POC ABG pH ABG pH POC ABG pCO2 POC ABG pO2 ABG pO2 ABG HCO3 ABG O2 Saturation ABG Base Excess ABG Hemoglobin Oxyhemoglobin Sodium 147 H Potassium Chloride Carbon Dioxide BUN 70 H Creatinine 2.6 H Glucose 155 H POC Glucose 158 H Uric Acid Calcium 8.2 L Phosphorus Magnesium Iron TIBC AST ALT Total Creatine Kinase CK-MB (CK-2) Troponin T NT-Pro-B Natriuret Pep Total Protein 6.1 L Albumin 2.5 L Triglycerides HDL Cholesterol Folate Urine WBC (Auto) Urine Creatinine Urine Total Protein Vancomycin Trough 05/10/19 05/11/19 05/11/19 13:14 07:26 11:40 WBC RBC Hgb Hct MCV MCH MCHC RDW Plt Count Lymph % (Auto) [place] % (Auto) Eos % (Auto) Lymph # [place] # Eos # Seg Neutrophils % Seg Neuts % (Manual) Lymphocytes % (Manual) Monocytes % (Manual) Eosinophils % (Manual) Nucleated RBC % Seg Neutrophils # Seg Neutrophils # Man Lymphocytes # (Manual) Monocytes # (Manual) Eosinophils # (Manual) PT INR APTT Fibrinogen POC ABG pH ABG pH POC ABG pCO2 48.0 H POC ABG pO2 58 L ABG pO2 ABG HCO3 ABG O2 Saturation ABG Base Excess ABG Hemoglobin Oxyhemoglobin Sodium 147 H Potassium Chloride 107.2 H Carbon Dioxide BUN 67 H Creatinine 2.6 H Glucose 121 H POC Glucose 159 H Uric Acid Calcium Phosphorus Magnesium Iron TIBC AST ALT Total Creatine Kinase CK-MB (CK-2) Troponin T NT-Pro-B Natriuret Pep Total Protein Albumin Triglycerides HDL Cholesterol Folate Urine WBC (Auto) Urine Creatinine Urine Total Protein Vancomycin Trough 05/11/19 05/11/19 05/12/19 18:13 23:46 04:40 WBC RBC Hgb Hct MCV MCH MCHC RDW Plt Count Lymph % (Auto) [place] % (Auto) Eos % (Auto) Lymph # [place] # Eos # Seg Neutrophils % Seg Neuts % (Manual) Lymphocytes % (Manual) Monocytes % (Manual) Eosinophils % (Manual) Nucleated RBC % Seg Neutrophils # Seg Neutrophils # Man Lymphocytes # (Manual) Monocytes # (Manual) Eosinophils # (Manual) PT INR APTT Fibrinogen POC ABG pH ABG pH 7.264 L POC ABG pCO2 POC ABG pO2 ABG pO2 66.8 L ABG HCO3 31.0 H ABG O2 Saturation 92.0 L ABG Base Excess ABG Hemoglobin 10.3 L Oxyhemoglobin 90.1 L Sodium Potassium Chloride Carbon Dioxide BUN Creatinine Glucose POC Glucose 120 H 121 H Uric Acid Calcium Phosphorus Magnesium Iron TIBC AST ALT Total Creatine Kinase CK-MB (CK-2) Troponin T NT-Pro-B Natriuret Pep Total Protein Albumin Triglycerides HDL Cholesterol Folate Urine WBC (Auto) Urine Creatinine Urine Total Protein Vancomycin Trough 05/12/19 05/12/19 05/12/19 04:45 04:45 11:14 WBC RBC Hgb 10.2 L Hct 32.4 L MCV MCH MCHC 31 L RDW 17.2 H Plt Count Lymph % (Auto) [place] % (Auto) Eos % (Auto) Lymph # [place] # Eos # Seg Neutrophils % Seg Neuts % (Manual) Lymphocytes % (Manual) Monocytes % (Manual) Eosinophils % (Manual) Nucleated RBC % Seg Neutrophils # Seg Neutrophils # Man Lymphocytes # (Manual) Monocytes # (Manual) Eosinophils # (Manual) PT INR APTT Fibrinogen POC ABG pH 7.284 L ABG pH POC ABG pCO2 67.8 H POC ABG pO2 ABG pO2 ABG HCO3 ABG O2 Saturation ABG Base Excess ABG Hemoglobin Oxyhemoglobin Sodium Potassium Chloride Carbon Dioxide BUN 63 H Creatinine 2.4 H Glucose 110 H POC Glucose Uric Acid Calcium Phosphorus Magnesium Iron TIBC AST ALT Total Creatine Kinase CK-MB (CK-2) Troponin T NT-Pro-B Natriuret Pep Total Protein Albumin Triglycerides HDL Cholesterol Folate Urine WBC (Auto) Urine Creatinine Urine Total Protein Vancomycin Trough 05/12/19 05/12/19 05/13/19 11:44 23:11 04:30 WBC RBC Hgb Hct MCV MCH MCHC RDW Plt Count Lymph % (Auto) [place] % (Auto) Eos % (Auto) Lymph # [place] # Eos # Seg Neutrophils % Seg Neuts % (Manual) Lymphocytes % (Manual) Monocytes % (Manual) Eosinophils % (Manual) Nucleated RBC % Seg Neutrophils # Seg Neutrophils # Man Lymphocytes # (Manual) Monocytes # (Manual) Eosinophils # (Manual) PT INR APTT Fibrinogen POC ABG pH ABG pH 7.288 L POC ABG pCO2 POC ABG pO2 ABG pO2 109.7 H ABG HCO3 30.9 H ABG O2 Saturation ABG Base Excess 3.2 H ABG Hemoglobin 9.6 L Oxyhemoglobin Sodium Potassium Chloride Carbon Dioxide BUN Creatinine Glucose POC Glucose 126 H 147 H Uric Acid Calcium Phosphorus Magnesium Iron TIBC AST ALT Total Creatine Kinase CK-MB (CK-2) Troponin T NT-Pro-B Natriuret Pep Total Protein Albumin Triglycerides HDL Cholesterol Folate Urine WBC (Auto) Urine Creatinine Urine Total Protein Vancomycin Trough 05/13/19 05/13/19 05/14/19 06:27 11:58 04:00 WBC RBC 3.16 L Hgb 9.3 L Hct 27.9 L MCV MCH MCHC RDW 17.1 H Plt Count Lymph % (Auto) [place] % (Auto) Eos % (Auto) Lymph # [place] # Eos # Seg Neutrophils % Seg Neuts % (Manual) Lymphocytes % (Manual) Monocytes % (Manual) Eosinophils % (Manual) Nucleated RBC % Seg Neutrophils # Seg Neutrophils # Man Lymphocytes # (Manual) Monocytes # (Manual) Eosinophils # (Manual) PT INR APTT Fibrinogen POC ABG pH ABG pH POC ABG pCO2 POC ABG pO2 ABG pO2 ABG HCO3 ABG O2 Saturation ABG Base Excess ABG Hemoglobin Oxyhemoglobin Sodium Potassium Chloride Carbon Dioxide BUN Creatinine Glucose POC Glucose 113 H 130 H Uric Acid Calcium Phosphorus Magnesium Iron TIBC AST ALT Total Creatine Kinase CK-MB (CK-2) Troponin T NT-Pro-B Natriuret Pep Total Protein Albumin Triglycerides HDL Cholesterol Folate Urine WBC (Auto) Urine Creatinine Urine Total Protein Vancomycin Trough 05/14/19 05/14/19 05/14/19 04:00 04:34 05:32 WBC RBC Hgb Hct MCV MCH MCHC RDW Plt Count Lymph % (Auto) [place] % (Auto) Eos % (Auto) Lymph # [place] # Eos # Seg Neutrophils % Seg Neuts % (Manual) Lymphocytes % (Manual) Monocytes % (Manual) Eosinophils % (Manual) Nucleated RBC % Seg Neutrophils # Seg Neutrophils # Man Lymphocytes # (Manual) Monocytes # (Manual) Eosinophils # (Manual) PT INR APTT Fibrinogen POC ABG pH 7.328 L ABG pH POC ABG pCO2 61.7 H POC ABG pO2 ABG pO2 ABG HCO3 ABG O2 Saturation ABG Base Excess ABG Hemoglobin Oxyhemoglobin Sodium 135 L D Potassium Chloride Carbon Dioxide BUN 57 H Creatinine 2.2 H Glucose 115 H POC Glucose 115 H Uric Acid Calcium 8.1 L Phosphorus Magnesium Iron TIBC AST ALT Total Creatine Kinase CK-MB (CK-2) Troponin T NT-Pro-B Natriuret Pep Total Protein Albumin Triglycerides HDL Cholesterol Folate Urine WBC (Auto) Urine Creatinine Urine Total Protein Vancomycin Trough 05/14/19 05/15/19 05/15/19 12:11 05:10 05:24 WBC RBC Hgb Hct MCV MCH MCHC RDW Plt Count Lymph % (Auto) [place] % (Auto) Eos % (Auto) Lymph # [place] # Eos # Seg Neutrophils % Seg Neuts % (Manual) Lymphocytes % (Manual) Monocytes % (Manual) Eosinophils % (Manual) Nucleated RBC % Seg Neutrophils # Seg Neutrophils # Man Lymphocytes # (Manual) Monocytes # (Manual) Eosinophils # (Manual) PT INR APTT Fibrinogen POC ABG pH ABG pH 7.342 L POC ABG pCO2 POC ABG pO2 ABG pO2 79.1 L ABG HCO3 28.2 H ABG O2 Saturation ABG Base Excess ABG Hemoglobin 7.0 L Oxyhemoglobin 94.4 L Sodium Potassium Chloride Carbon Dioxide BUN Creatinine Glucose POC Glucose 110 H 116 H Uric Acid Calcium Phosphorus Magnesium Iron TIBC AST ALT Total Creatine Kinase CK-MB (CK-2) Troponin T NT-Pro-B Natriuret Pep Total Protein Albumin Triglycerides HDL Cholesterol Folate Urine WBC (Auto) Urine Creatinine Urine Total Protein Vancomycin Trough 05/15/19 05/15/19 05/16/19 09:00 18:12 04:50 WBC RBC Hgb Hct MCV MCH MCHC RDW Plt Count Lymph % (Auto) [place] % (Auto) Eos % (Auto) Lymph # [place] # Eos # Seg Neutrophils % Seg Neuts % (Manual) Lymphocytes % (Manual) Monocytes % (Manual) Eosinophils % (Manual) Nucleated RBC % Seg Neutrophils # Seg Neutrophils # Man Lymphocytes # (Manual) Monocytes # (Manual) Eosinophils # (Manual) PT INR APTT Fibrinogen POC ABG pH ABG pH 7.250 L POC ABG pCO2 POC ABG pO2 ABG pO2 76.4 L ABG HCO3 ABG O2 Saturation 94.6 L ABG Base Excess -3.1 L ABG Hemoglobin 9.7 L Oxyhemoglobin 92.4 L Sodium Potassium Chloride Carbon Dioxide BUN Creatinine Glucose POC Glucose 110 H Uric Acid Calcium Phosphorus Magnesium Iron TIBC AST ALT Total Creatine Kinase CK-MB (CK-2) Troponin T NT-Pro-B Natriuret Pep Total Protein Albumin Triglycerides HDL Cholesterol Folate Urine WBC (Auto) Urine Creatinine Urine Total Protein Vancomycin Trough 20.5 H 05/16/19 05/16/19 05/17/19 05:50 05:50 04:20 WBC RBC 3.36 L 3.44 L Hgb 9.4 L 9.3 L Hct 29.1 L 29.7 L MCV MCH 27 L MCHC 31 L RDW 17.6 H 17.6 H Plt Count Lymph % (Auto) [place] % (Auto) Eos % (Auto) Lymph # [place] # Eos # Seg Neutrophils % Seg Neuts % (Manual) 77.0 H Lymphocytes % (Manual) 5.0 L Monocytes % (Manual) Eosinophils % (Manual) 10.0 H Nucleated RBC % Seg Neutrophils # Seg Neutrophils # Man Lymphocytes # (Manual) 0.5 L Monocytes # (Manual) Eosinophils # (Manual) 0.9 H PT INR APTT Fibrinogen POC ABG pH ABG pH POC ABG pCO2 POC ABG pO2 ABG pO2 ABG HCO3 ABG O2 Saturation ABG Base Excess ABG Hemoglobin Oxyhemoglobin Sodium Potassium Chloride Carbon Dioxide BUN 83 H Creatinine 4.4 H D Glucose 118 H POC Glucose Uric Acid Calcium Phosphorus Magnesium Iron TIBC AST ALT Total Creatine Kinase CK-MB (CK-2) Troponin T NT-Pro-B Natriuret Pep Total Protein Albumin Triglycerides HDL Cholesterol Folate Urine WBC (Auto) Urine Creatinine Urine Total Protein Vancomycin Trough 05/17/19 05/17/19 05/18/19 04:30 Unknown 01:50 WBC RBC 3.49 L Hgb 9.4 L Hct 30.0 L MCV MCH 27 L MCHC 31 L RDW 17.8 H Plt Count Lymph % (Auto) 7.[address] [place] % (Auto) 15.4 H Eos % (Auto) 6.3 H Lymph # 0.[address] [place] # 1.4 H Eos # 0.6 H Seg Neutrophils % 70.2 H Seg Neuts % (Manual) Lymphocytes % (Manual) Monocytes % (Manual) Eosinophils % (Manual) Nucleated RBC % Seg Neutrophils # Seg Neutrophils # Man Lymphocytes # (Manual) Monocytes # (Manual) Eosinophils # (Manual) PT INR APTT Fibrinogen POC ABG pH ABG pH 7.272 L POC ABG pCO2 POC ABG pO2 ABG pO2 75.7 L ABG HCO3 ABG O2 Saturation 93.8 L ABG Base Excess -3.0 L ABG Hemoglobin 7.8 L Oxyhemoglobin 91.6 L Sodium Potassium 5.2 H Chloride Carbon Dioxide BUN 96 H Creatinine 5.7 H Glucose 112 H POC Glucose Uric Acid Calcium Phosphorus Magnesium Iron TIBC AST ALT Total Creatine Kinase CK-MB (CK-2) Troponin T NT-Pro-B Natriuret Pep Total Protein Albumin Triglycerides 173 H HDL Cholesterol Folate Urine WBC (Auto) Urine Creatinine Urine Total Protein Vancomycin Trough 05/18/19 05/18/19 05/18/19 01:50 04:41 05:24 WBC RBC Hgb Hct MCV MCH MCHC RDW Plt Count Lymph % (Auto) [place] % (Auto) Eos % (Auto) Lymph # [place] # Eos # Seg Neutrophils % Seg Neuts % (Manual) Lymphocytes % (Manual) Monocytes % (Manual) Eosinophils % (Manual) Nucleated RBC % Seg Neutrophils # Seg Neutrophils # Man Lymphocytes # (Manual) Monocytes # (Manual) Eosinophils # (Manual) PT INR APTT Fibrinogen POC ABG pH 7.260 L ABG pH POC ABG pCO2 54.9 H POC ABG pO2 ABG pO2 ABG HCO3 ABG O2 Saturation ABG Base Excess ABG Hemoglobin Oxyhemoglobin Sodium Potassium 5.6 H Chloride Carbon Dioxide BUN 104 H Creatinine 6.6 H Glucose 107 H POC Glucose 106 H Uric Acid Calcium Phosphorus Magnesium Iron TIBC AST ALT Total Creatine Kinase CK-MB (CK-2) Troponin T NT-Pro-B Natriuret Pep Total Protein Albumin Triglycerides HDL Cholesterol Folate Urine WBC (Auto) Urine Creatinine Urine Total Protein Vancomycin Trough 05/18/19 05/18/19 05/19/19 11:34 23:26 04:06 WBC RBC 3.22 L Hgb 8.8 L Hct 27.3 L MCV MCH 27 L MCHC RDW 17.5 H Plt Count Lymph % (Auto) [place] % (Auto) Eos % (Auto) Lymph # [place] # Eos # Seg Neutrophils % Seg Neuts % (Manual) 74.0 H Lymphocytes % (Manual) 4.0 L Monocytes % (Manual) 11.0 H Eosinophils % (Manual) 7.0 H Nucleated RBC % 1.0 H Seg Neutrophils # Seg Neutrophils # Man Lymphocytes # (Manual) 0.3 L Monocytes # (Manual) 0.9 H Eosinophils # (Manual) 0.6 H PT INR APTT Fibrinogen POC ABG pH ABG pH POC ABG pCO2 POC ABG pO2 ABG pO2 ABG HCO3 ABG O2 Saturation ABG Base Excess ABG Hemoglobin Oxyhemoglobin Sodium Potassium Chloride Carbon Dioxide BUN Creatinine Glucose POC Glucose 152 H 112 H Uric Acid Calcium Phosphorus Magnesium Iron TIBC AST ALT Total Creatine Kinase CK-MB (CK-2) Troponin T NT-Pro-B Natriuret Pep Total Protein Albumin Triglycerides HDL Cholesterol Folate Urine WBC (Auto) Urine Creatinine Urine Total Protein Vancomycin Trough 05/19/19 05/19/19 05/20/19 04:06 06:00 04:00 WBC RBC 3.40 L Hgb 9.2 L Hct 28.6 L MCV MCH 27 L MCHC RDW 17.6 H Plt Count Lymph % (Auto) [place] % (Auto) Eos % (Auto) Lymph # [place] # Eos # Seg Neutrophils % Seg Neuts % (Manual) Lymphocytes % (Manual) 11.0 L Monocytes % (Manual) Eosinophils % (Manual) 14.0 H Nucleated RBC % Seg Neutrophils # Seg Neutrophils # Man Lymphocytes # (Manual) 1.1 L Monocytes # (Manual) Eosinophils # (Manual) 1.4 H PT INR APTT Fibrinogen POC ABG pH ABG pH 7.315 L POC ABG pCO2 POC ABG pO2 ABG pO2 ABG HCO3 ABG O2 Saturation ABG Base Excess ABG Hemoglobin 6.7 L Oxyhemoglobin 94.1 L Sodium Potassium 5.2 H Chloride Carbon Dioxide 21 L BUN 110 H Creatinine 7.2 H Glucose POC Glucose Uric Acid Calcium 8.3 L Phosphorus Magnesium Iron TIBC AST ALT Total Creatine Kinase CK-MB (CK-2) Troponin T NT-Pro-B Natriuret Pep Total Protein Albumin Triglycerides HDL Cholesterol Folate Urine WBC (Auto) Urine Creatinine Urine Total Protein Vancomycin Trough 05/20/19 05/20/19 05/20/19 04:00 05:48 12:00 WBC RBC Hgb Hct MCV MCH MCHC RDW Plt Count Lymph % (Auto) [place] % (Auto) Eos % (Auto) Lymph # [place] # Eos # Seg Neutrophils % Seg Neuts % (Manual) Lymphocytes % (Manual) Monocytes % (Manual) Eosinophils % (Manual) Nucleated RBC % Seg Neutrophils # Seg Neutrophils # Man Lymphocytes # (Manual) Monocytes # (Manual) Eosinophils # (Manual) PT INR APTT Fibrinogen POC ABG pH ABG pH 7.281 L POC ABG pCO2 POC ABG pO2 ABG pO2 78.7 L ABG HCO3 ABG O2 Saturation 94.5 L ABG Base Excess -3.0 L ABG Hemoglobin 9.9 L Oxyhemoglobin 92.5 L Sodium 136 L Potassium 5.7 H Chloride 96.3 L Carbon Dioxide BUN 125 H Creatinine 8.3 H Glucose 106 H POC Glucose Uric Acid Calcium Phosphorus Magnesium Iron TIBC AST ALT Total Creatine Kinase CK-MB (CK-2) Troponin T NT-Pro-B Natriuret Pep Total Protein Albumin Triglycerides HDL Cholesterol Folate Urine WBC (Auto) 26.0 H Urine Creatinine Urine Total Protein Vancomycin Trough 05/21/19 05/21/19 05/21/19 04:33 05:20 Unknown WBC RBC 3.38 L Hgb 9.1 L Hct 28.5 L MCV MCH 27 L MCHC RDW 17.4 H Plt Count Lymph % (Auto) [place] % (Auto) Eos % (Auto) Lymph # [place] # Eos # Seg Neutrophils % Seg Neuts % (Manual) 71.0 H Lymphocytes % (Manual) 1.0 L Monocytes % (Manual) 11.0 H Eosinophils % (Manual) 6.0 H Nucleated RBC % Seg Neutrophils # Seg Neutrophils # Man Lymphocytes # (Manual) 0.1 L Monocytes # (Manual) 1.0 H Eosinophils # (Manual) 0.6 H PT INR APTT Fibrinogen POC ABG pH 7.315 L ABG pH POC ABG pCO2 57.8 H POC ABG pO2 68 L ABG pO2 ABG HCO3 ABG O2 Saturation ABG Base Excess ABG Hemoglobin Oxyhemoglobin Sodium Potassium Chloride 96.3 L Carbon Dioxide BUN 102 H Creatinine 7.0 H Glucose 103 H POC Glucose Uric Acid Calcium Phosphorus Magnesium Iron TIBC AST ALT Total Creatine Kinase CK-MB (CK-2) Troponin T NT-Pro-B Natriuret Pep Total Protein Albumin Triglycerides HDL Cholesterol Folate Urine WBC (Auto) Urine Creatinine Urine Total Protein Vancomycin Trough 05/22/19 05/22/19 05/22/19 03:54 06:25 06:25 WBC RBC 3.22 L Hgb 8.6 L Hct 27.0 L MCV MCH 27 L MCHC RDW 17.5 H Plt Count Lymph % (Auto) [place] % (Auto) 16.2 H Eos % (Auto) 10.8 H Lymph # [facility] # 1.3 H Eos # 0.9 H Seg Neutrophils % Seg Neuts % (Manual) Lymphocytes % (Manual) 10.0 L Monocytes % (Manual) 13.0 H Eosinophils % (Manual) 8.0 H Nucleated RBC % Seg Neutrophils # Seg Neutrophils # Man Lymphocytes # (Manual) 0.9 L Monocytes # (Manual) 1.1 H Eosinophils # (Manual) 0.7 H PT INR APTT Fibrinogen POC ABG pH 7.313 L ABG pH POC ABG pCO2 55.0 H POC ABG pO2 ABG pO2 ABG HCO3 ABG O2 Saturation ABG Base Excess ABG Hemoglobin Oxyhemoglobin Sodium 135 L Potassium Chloride 94.3 L Carbon Dioxide BUN 117 H Creatinine 7.8 H Glucose POC Glucose Uric Acid Calcium 8.2 L Phosphorus Magnesium Iron TIBC AST ALT Total Creatine Kinase CK-MB (CK-2) Troponin T NT-Pro-B Natriuret Pep Total Protein Albumin Triglycerides HDL Cholesterol Folate Urine WBC (Auto) Urine Creatinine Urine Total Protein Vancomycin Trough 05/23/19 05/24/19 05/24/19 05:21 05:00 05:00 WBC RBC 3.18 L Hgb 8.5 L Hct 26.7 L MCV MCH 27 L MCHC RDW 17.9 H Plt Count Lymph % (Auto) [place] % (Auto) Eos % (Auto) Lymph # [place] # Eos # Seg Neutrophils % Seg Neuts % (Manual) Lymphocytes % (Manual) Monocytes % (Manual) Eosinophils % (Manual) Nucleated RBC % Seg Neutrophils # Seg Neutrophils # Man Lymphocytes # (Manual) Monocytes # (Manual) Eosinophils # (Manual) PT INR APTT Fibrinogen POC ABG pH ABG pH POC ABG pCO2 49.7 H POC ABG pO2 73 L ABG pO2 ABG HCO3 ABG O2 Saturation ABG Base Excess ABG Hemoglobin Oxyhemoglobin Sodium Potassium Chloride 95.7 L Carbon Dioxide BUN 97 H Creatinine 6.5 H Glucose POC Glucose Uric Acid Calcium 8.0 L Phosphorus Magnesium Iron TIBC AST ALT Total Creatine Kinase CK-MB (CK-2) Troponin T NT-Pro-B Natriuret Pep Total Protein Albumin Triglycerides HDL Cholesterol Folate Urine WBC (Auto) Urine Creatinine Urine Total Protein Vancomycin Trough 05/24/19 05/25/19 05/25/19 06:17 04:22 15:45 WBC RBC 2.98 L Hgb 8.1 L Hct 24.9 L MCV MCH 27 L MCHC RDW 17.8 H Plt Count Lymph % (Auto) [place] % (Auto) Eos % (Auto) Lymph # [place] # Eos # Seg Neutrophils % Seg Neuts % (Manual) Lymphocytes % (Manual) Monocytes % (Manual) Eosinophils % (Manual) Nucleated RBC % Seg Neutrophils # Seg Neutrophils # Man Lymphocytes # (Manual) Monocytes # (Manual) Eosinophils # (Manual) PT INR APTT Fibrinogen POC ABG pH 7.330 L 7.313 L ABG pH POC ABG pCO2 52.5 H 51.1 H POC ABG pO2 77 L ABG pO2 ABG HCO3 ABG O2 Saturation ABG Base Excess ABG Hemoglobin Oxyhemoglobin Sodium Potassium Chloride Carbon Dioxide BUN Creatinine Glucose POC Glucose Uric Acid Calcium Phosphorus Magnesium Iron TIBC AST ALT Total Creatine Kinase CK-MB (CK-2) Troponin T NT-Pro-B Natriuret Pep Total Protein Albumin Triglycerides HDL Cholesterol Folate Urine WBC (Auto) Urine Creatinine Urine Total Protein Vancomycin Trough 05/25/19 05/26/19 05/26/19 15:45 04:13 05:00 WBC RBC 3.10 L Hgb 8.4 L Hct 26.0 L MCV MCH 27 L MCHC RDW 17.4 H Plt Count Lymph % (Auto) [place] % (Auto) Eos % (Auto) Lymph # [facility] # Eos # Seg Neutrophils % Seg Neuts % (Manual) Lymphocytes % (Manual) Monocytes % (Manual) Eosinophils % (Manual) Nucleated RBC % Seg Neutrophils # Seg Neutrophils # Man Lymphocytes # (Manual) Monocytes # (Manual) Eosinophils # (Manual) PT INR APTT Fibrinogen POC ABG pH 7.295 L ABG pH POC ABG pCO2 56.5 H POC ABG pO2 63 L ABG pO2 ABG HCO3 ABG O2 Saturation ABG Base Excess ABG Hemoglobin Oxyhemoglobin Sodium 136 L Potassium Chloride 96.8 L Carbon Dioxide BUN 83 H Creatinine 5.9 H Glucose POC Glucose Uric Acid Calcium 7.6 L Phosphorus Magnesium Iron TIBC AST ALT Total Creatine Kinase CK-MB (CK-2) Troponin T NT-Pro-B Natriuret Pep Total Protein Albumin Triglycerides HDL Cholesterol Folate Urine WBC (Auto) Urine Creatinine Urine Total Protein Vancomycin Trough 05/26/19 05/27/19 05/28/19 05:00 04:48 04:47 WBC RBC Hgb Hct MCV MCH MCHC RDW Plt Count Lymph % (Auto) [place] % (Auto) Eos % (Auto) Lymph # [facility] # Eos # Seg Neutrophils % Seg Neuts % (Manual) Lymphocytes % (Manual) Monocytes % (Manual) Eosinophils % (Manual) Nucleated RBC % Seg Neutrophils # Seg Neutrophils # Man Lymphocytes # (Manual) Monocytes # (Manual) Eosinophils # (Manual) PT INR APTT Fibrinogen POC ABG pH 7.323 L ABG pH 7.284 L POC ABG pCO2 56.2 H POC ABG pO2 ABG pO2 71.6 L ABG HCO3 ABG O2 Saturation 92.0 L ABG Base Excess ABG Hemoglobin 7.7 L Oxyhemoglobin 89.9 L Sodium 136 L Potassium Chloride 95.3 L Carbon Dioxide BUN 96 H Creatinine 6.5 H Glucose 108 H POC Glucose Uric Acid Calcium 7.6 L Phosphorus Magnesium Iron TIBC AST ALT Total Creatine Kinase CK-MB (CK-2) Troponin T NT-Pro-B Natriuret Pep Total Protein Albumin Triglycerides HDL Cholesterol Folate Urine WBC (Auto) Urine Creatinine Urine Total Protein Vancomycin Trough 05/28/19 05/29/19 05/29/19 12:30 12:47 23:44 WBC RBC Hgb Hct MCV MCH MCHC RDW Plt Count Lymph % (Auto) [place] % (Auto) Eos % (Auto) Lymph # [facility] # Eos # Seg Neutrophils % Seg Neuts % (Manual) Lymphocytes % (Manual) Monocytes % (Manual) Eosinophils % (Manual) Nucleated RBC % Seg Neutrophils # Seg Neutrophils # Man Lymphocytes # (Manual) Monocytes # (Manual) Eosinophils # (Manual) PT INR APTT Fibrinogen POC ABG pH ABG pH POC ABG pCO2 POC ABG pO2 ABG pO2 ABG HCO3 ABG O2 Saturation ABG Base Excess ABG Hemoglobin Oxyhemoglobin Sodium 135 L Potassium Chloride 95.3 L Carbon Dioxide BUN 82 H Creatinine 6.0 H Glucose POC Glucose 136 H 159 H Uric Acid Calcium 7.5 L Phosphorus Magnesium Iron TIBC AST ALT Total Creatine Kinase CK-MB (CK-2) Troponin T NT-Pro-B Natriuret Pep Total Protein Albumin Triglycerides HDL Cholesterol Folate Urine WBC (Auto) Urine Creatinine Urine Total Protein Vancomycin Trough 05/30/19 05/30/19 05/30/19 04:30 05:38 12:00 WBC RBC 3.01 L Hgb 8.2 L Hct 25.3 L MCV MCH 27 L MCHC RDW 17.5 H Plt Count Lymph % (Auto) [place] % (Auto) Eos % (Auto) Lymph # [facility] # Eos # Seg Neutrophils % Seg Neuts % (Manual) 80.0 H Lymphocytes % (Manual) 10.0 L Monocytes % (Manual) Eosinophils % (Manual) Nucleated RBC % Seg Neutrophils # Seg Neutrophils # Man 8.0 H Lymphocytes # (Manual) 1.0 L Monocytes # (Manual) Eosinophils # (Manual) PT INR APTT Fibrinogen POC ABG pH ABG pH POC ABG pCO2 POC ABG pO2 73 L ABG pO2 ABG HCO3 ABG O2 Saturation ABG Base Excess ABG Hemoglobin Oxyhemoglobin Sodium Potassium Chloride Carbon Dioxide BUN Creatinine Glucose POC Glucose 166 H Uric Acid Calcium Phosphorus Magnesium Iron TIBC AST ALT Total Creatine Kinase CK-MB (CK-2) Troponin T NT-Pro-B Natriuret Pep Total Protein Albumin Triglycerides HDL Cholesterol Folate Urine WBC (Auto) Urine Creatinine Urine Total Protein Vancomycin Trough 05/30/19 05/31/19 05/31/19 23:45 04:07 13:04 WBC 14.3 H RBC 2.88 L Hgb 7.7 L Hct 23.9 L MCV 83 L MCH 27 L MCHC RDW 17.8 H Plt Count Lymph % (Auto) [place] % (Auto) Eos % (Auto) Lymph # [place] # Eos # Seg Neutrophils % Seg Neuts % (Manual) 83.0 H Lymphocytes % (Manual) 11.0 L Monocytes % (Manual) Eosinophils % (Manual) Nucleated RBC % Seg Neutrophils # Seg Neutrophils # Man 11.9 H Lymphocytes # (Manual) Monocytes # (Manual) 0.9 H Eosinophils # (Manual) PT INR APTT Fibrinogen POC ABG pH ABG pH POC ABG pCO2 47.4 H POC ABG pO2 ABG pO2 ABG HCO3 ABG O2 Saturation ABG Base Excess ABG Hemoglobin Oxyhemoglobin Sodium Potassium Chloride Carbon Dioxide BUN Creatinine Glucose POC Glucose 209 H Uric Acid Calcium Phosphorus Magnesium Iron TIBC AST ALT Total Creatine Kinase CK-MB (CK-2) Troponin T NT-Pro-B Natriuret Pep Total Protein Albumin Triglycerides HDL Cholesterol Folate Urine WBC (Auto) Urine Creatinine Urine Total Protein Vancomycin Trough 05/31/19 05/31/19 06/01/19 13:04 16:42 00:15 WBC RBC Hgb Hct MCV MCH MCHC RDW Plt Count Lymph % (Auto) [place] % (Auto) Eos % (Auto) Lymph # [place] # Eos # Seg Neutrophils % Seg Neuts % (Manual) Lymphocytes % (Manual) Monocytes % (Manual) Eosinophils % (Manual) Nucleated RBC % Seg Neutrophils # Seg Neutrophils # Man Lymphocytes # (Manual) Monocytes # (Manual) Eosinophils # (Manual) PT INR APTT Fibrinogen POC ABG pH ABG pH POC ABG pCO2 POC ABG pO2 ABG pO2 ABG HCO3 ABG O2 Saturation ABG Base Excess ABG Hemoglobin Oxyhemoglobin Sodium 129 L Potassium Chloride 88.6 L Carbon Dioxide 19 L BUN 117 H Creatinine 6.7 H Glucose 205 H POC Glucose 228 H 223 H Uric Acid Calcium 7.4 L Phosphorus 7.40 H Magnesium Iron TIBC AST 58 H ALT 149 H Total Creatine Kinase CK-MB (CK-2) Troponin T NT-Pro-B Natriuret Pep Total Protein 6.0 L Albumin 2.5 L Triglycerides HDL Cholesterol Folate Urine WBC (Auto) Urine Creatinine Urine Total Protein Vancomycin Trough 06/01/19 06/01/19 06/01/19 04:33 05:27 12:31 WBC RBC Hgb Hct MCV MCH MCHC RDW Plt Count Lymph % (Auto) [place] % (Auto) Eos % (Auto) Lymph # [place] # Eos # Seg Neutrophils % Seg Neuts % (Manual) Lymphocytes % (Manual) Monocytes % (Manual) Eosinophils % (Manual) Nucleated RBC % Seg Neutrophils # Seg Neutrophils # Man Lymphocytes # (Manual) Monocytes # (Manual) Eosinophils # (Manual) PT INR APTT Fibrinogen POC ABG pH ABG pH POC ABG pCO2 POC ABG pO2 ABG pO2 56.9 L ABG HCO3 ABG O2 Saturation 85.9 L ABG Base Excess ABG Hemoglobin 8.1 L Oxyhemoglobin 83.6 L Sodium Potassium Chloride Carbon Dioxide BUN Creatinine Glucose POC Glucose 183 H 217 H Uric Acid Calcium Phosphorus Magnesium Iron TIBC AST ALT Total Creatine Kinase CK-MB (CK-2) Troponin T NT-Pro-B Natriuret Pep Total Protein Albumin Triglycerides HDL Cholesterol Folate Urine WBC (Auto) Urine Creatinine Urine Total Protein Vancomycin Trough 06/01/19 06/02/19 06/02/19 18:20 00:00 05:33 WBC RBC Hgb Hct MCV MCH MCHC RDW Plt Count Lymph % (Auto) [place] % (Auto) Eos % (Auto) Lymph # [place] # Eos # Seg Neutrophils % Seg Neuts % (Manual) Lymphocytes % (Manual) Monocytes % (Manual) Eosinophils % (Manual) Nucleated RBC % Seg Neutrophils # Seg Neutrophils # Man Lymphocytes # (Manual) Monocytes # (Manual) Eosinophils # (Manual) PT INR APTT Fibrinogen POC ABG pH ABG pH POC ABG pCO2 POC ABG pO2 ABG pO2 ABG HCO3 ABG O2 Saturation ABG Base Excess ABG Hemoglobin Oxyhemoglobin Sodium Potassium Chloride Carbon Dioxide BUN Creatinine Glucose POC Glucose 265 H 279 H 259 H Uric Acid Calcium Phosphorus Magnesium Iron TIBC AST ALT Total Creatine Kinase CK-MB (CK-2) Troponin T NT-Pro-B Natriuret Pep Total Protein Albumin Triglycerides HDL Cholesterol Folate Urine WBC (Auto) Urine Creatinine Urine Total Protein Vancomycin Trough 06/02/19 06/02/19 06/02/19 11:06 11:06 11:42 WBC 13.1 H RBC 2.92 L Hgb 7.9 L Hct 24.4 L MCV MCH 27 L MCHC RDW 17.4 H Plt Count Lymph % (Auto) [place] % (Auto) Eos % (Auto) Lymph # [place] # Eos # Seg Neutrophils % Seg Neuts % (Manual) 78.0 H Lymphocytes % (Manual) 12.0 L Monocytes % (Manual) 10.0 H Eosinophils % (Manual) Nucleated RBC % Seg Neutrophils # Seg Neutrophils # Man 10.2 H Lymphocytes # (Manual) Monocytes # (Manual) 1.3 H Eosinophils # (Manual) PT INR APTT Fibrinogen POC ABG pH ABG pH POC ABG pCO2 POC ABG pO2 ABG pO2 ABG HCO3 ABG O2 Saturation ABG Base Excess ABG Hemoglobin Oxyhemoglobin Sodium 135 L Potassium Chloride 94.7 L Carbon Dioxide 21 L BUN 107 H Creatinine 4.5 H Glucose 286 H POC Glucose 263 H Uric Acid Calcium 7.9 L Phosphorus 6.30 H Magnesium Iron TIBC AST ALT 104 H Total Creatine Kinase CK-MB (CK-2) Troponin T NT-Pro-B Natriuret Pep Total Protein 6.0 L Albumin 2.7 L Triglycerides HDL Cholesterol Folate Urine WBC (Auto) Urine Creatinine Urine Total Protein Vancomycin Trough 06/02/19 06/02/19 06/03/19 18:17 23:55 05:30 WBC RBC Hgb Hct MCV MCH MCHC RDW Plt Count Lymph % (Auto) [place] % (Auto) Eos % (Auto) Lymph # [place] # Eos # Seg Neutrophils % Seg Neuts % (Manual) Lymphocytes % (Manual) Monocytes % (Manual) Eosinophils % (Manual) Nucleated RBC % Seg Neutrophils # Seg Neutrophils # Man Lymphocytes # (Manual) Monocytes # (Manual) Eosinophils # (Manual) PT INR APTT Fibrinogen POC ABG pH ABG pH POC ABG pCO2 POC ABG pO2 ABG pO2 ABG HCO3 ABG O2 Saturation ABG Base Excess ABG Hemoglobin Oxyhemoglobin Sodium Potassium Chloride 95.1 L Carbon Dioxide 21 L BUN 119 H Creatinine 4.1 H Glucose 330 H POC Glucose 276 H 244 H Uric Acid Calcium 8.1 L Phosphorus Magnesium Iron TIBC AST ALT 98 H Total Creatine Kinase CK-MB (CK-2) Troponin T NT-Pro-B Natriuret Pep Total Protein 5.8 L Albumin 2.8 L Triglycerides HDL Cholesterol Folate Urine WBC (Auto) Urine Creatinine Urine Total Protein Vancomycin Trough 06/03/19 06/03/19 06/03/19 05:30 06:04 09:42 WBC 12.8 H RBC 3.01 L Hgb 8.2 L Hct 25.4 L MCV MCH 27 L MCHC RDW 17.5 H Plt Count Lymph % (Auto) [place] % (Auto) Eos % (Auto) Lymph # [place] # Eos # Seg Neutrophils % Seg Neuts % (Manual) 78.0 H Lymphocytes % (Manual) 10.0 L Monocytes % (Manual) 12.0 H Eosinophils % (Manual) Nucleated RBC % Seg Neutrophils # Seg Neutrophils # Man 10.0 H Lymphocytes # (Manual) Monocytes # (Manual) 1.5 H Eosinophils # (Manual) PT INR APTT Fibrinogen POC ABG pH ABG pH POC ABG pCO2 POC ABG pO2 ABG pO2 ABG HCO3 ABG O2 Saturation ABG Base Excess ABG Hemoglobin Oxyhemoglobin Sodium Potassium Chloride Carbon Dioxide BUN 106 H Creatinine Glucose POC Glucose 254 H Uric Acid Calcium Phosphorus Magnesium Iron TIBC AST ALT Total Creatine Kinase CK-MB (CK-2) Troponin T NT-Pro-B Natriuret Pep Total Protein Albumin Triglycerides HDL Cholesterol Folate Urine WBC (Auto) Urine Creatinine Urine Total Protein Vancomycin Trough 06/03/19 06/03/19 06/03/19 12:52 17:25 23:37 WBC RBC Hgb Hct MCV MCH MCHC RDW Plt Count Lymph % (Auto) [place] % (Auto) Eos % (Auto) Lymph # [place] # Eos # Seg Neutrophils % Seg Neuts % (Manual) Lymphocytes % (Manual) Monocytes % (Manual) Eosinophils % (Manual) Nucleated RBC % Seg Neutrophils # Seg Neutrophils # Man Lymphocytes # (Manual) Monocytes # (Manual) Eosinophils # (Manual) PT INR APTT Fibrinogen POC ABG pH ABG pH POC ABG pCO2 POC ABG pO2 ABG pO2 ABG HCO3 ABG O2 Saturation ABG Base Excess ABG Hemoglobin Oxyhemoglobin Sodium Potassium Chloride Carbon Dioxide BUN Creatinine Glucose POC Glucose 274 H 285 H 310 H Uric Acid Calcium Phosphorus Magnesium Iron TIBC AST ALT Total Creatine Kinase CK-MB (CK-2) Troponin T NT-Pro-B Natriuret Pep Total Protein Albumin Triglycerides HDL Cholesterol Folate Urine WBC (Auto) Urine Creatinine Urine Total Protein Vancomycin Trough 06/04/19 06/04/19 06/04/19 04:57 05:03 11:50 WBC RBC Hgb Hct MCV MCH MCHC RDW Plt Count Lymph % (Auto) [place] % (Auto) Eos % (Auto) Lymph # [place] # Eos # Seg Neutrophils % Seg Neuts % (Manual) Lymphocytes % (Manual) Monocytes % (Manual) Eosinophils % (Manual) Nucleated RBC % Seg Neutrophils # Seg Neutrophils # Man Lymphocytes # (Manual) Monocytes # (Manual) Eosinophils # (Manual) PT INR APTT Fibrinogen POC ABG pH 7.488 H ABG pH POC ABG pCO2 POC ABG pO2 ABG pO2 ABG HCO3 ABG O2 Saturation ABG Base Excess ABG Hemoglobin Oxyhemoglobin Sodium Potassium Chloride Carbon Dioxide BUN Creatinine Glucose POC Glucose 275 H 279 H Uric Acid Calcium Phosphorus Magnesium Iron TIBC AST ALT Total Creatine Kinase CK-MB (CK-2) Troponin T NT-Pro-B Natriuret Pep Total Protein Albumin Triglycerides HDL Cholesterol Folate Urine WBC (Auto) Urine Creatinine Urine Total Protein Vancomycin Trough 06/04/19 06/04/19 06/04/19 18:32 22:03 23:55 WBC RBC Hgb Hct MCV MCH MCHC RDW Plt Count Lymph % (Auto) [place] % (Auto) Eos % (Auto) Lymph # [place] # Eos # Seg Neutrophils % Seg Neuts % (Manual) Lymphocytes % (Manual) Monocytes % (Manual) Eosinophils % (Manual) Nucleated RBC % Seg Neutrophils # Seg Neutrophils # Man Lymphocytes # (Manual) Monocytes # (Manual) Eosinophils # (Manual) PT INR APTT Fibrinogen POC ABG pH ABG pH POC ABG pCO2 POC ABG pO2 ABG pO2 ABG HCO3 ABG O2 Saturation ABG Base Excess ABG Hemoglobin Oxyhemoglobin Sodium Potassium Chloride Carbon Dioxide BUN Creatinine Glucose POC Glucose 267 H 307 H 292 H Uric Acid Calcium Phosphorus Magnesium Iron TIBC AST ALT Total Creatine Kinase CK-MB (CK-2) Troponin T NT-Pro-B Natriuret Pep Total Protein Albumin Triglycerides HDL Cholesterol Folate Urine WBC (Auto) Urine Creatinine Urine Total Protein Vancomycin Trough 06/05/19 06/05/19 06/05/19 03:52 06:41 12:29 WBC RBC Hgb Hct MCV MCH MCHC RDW Plt Count Lymph % (Auto) [place] % (Auto) Eos % (Auto) Lymph # [place] # Eos # Seg Neutrophils % Seg Neuts % (Manual) Lymphocytes % (Manual) Monocytes % (Manual) Eosinophils % (Manual) Nucleated RBC % Seg Neutrophils # Seg Neutrophils # Man Lymphocytes # (Manual) Monocytes # (Manual) Eosinophils # (Manual) PT INR APTT Fibrinogen POC ABG pH 7.462 H ABG pH POC ABG pCO2 POC ABG pO2 ABG pO2 ABG HCO3 ABG O2 Saturation ABG Base Excess ABG Hemoglobin Oxyhemoglobin Sodium Potassium Chloride Carbon Dioxide BUN Creatinine Glucose POC Glucose 369 H 265 H Uric Acid Calcium Phosphorus Magnesium Iron TIBC AST ALT Total Creatine Kinase CK-MB (CK-2) Troponin T NT-Pro-B Natriuret Pep Total Protein Albumin Triglycerides HDL Cholesterol Folate Urine WBC (Auto) Urine Creatinine Urine Total Protein Vancomycin Trough 06/05/19 06/05/19 06/05/19 18:20 21:42 23:21 WBC RBC Hgb Hct MCV MCH MCHC RDW Plt Count Lymph % (Auto) [place] % (Auto) Eos % (Auto) Lymph # [place] # Eos # Seg Neutrophils % Seg Neuts % (Manual) Lymphocytes % (Manual) Monocytes % (Manual) Eosinophils % (Manual) Nucleated RBC % Seg Neutrophils # Seg Neutrophils # Man Lymphocytes # (Manual) Monocytes # (Manual) Eosinophils # (Manual) PT INR APTT Fibrinogen POC ABG pH ABG pH POC ABG pCO2 POC ABG pO2 ABG pO2 ABG HCO3 ABG O2 Saturation ABG Base Excess ABG Hemoglobin Oxyhemoglobin Sodium Potassium Chloride Carbon Dioxide BUN Creatinine Glucose POC Glucose 249 H 246 H 274 H Uric Acid Calcium Phosphorus Magnesium Iron TIBC AST ALT Total Creatine Kinase CK-MB (CK-2) Troponin T NT-Pro-B Natriuret Pep Total Protein Albumin Triglycerides HDL Cholesterol Folate Urine WBC (Auto) Urine Creatinine Urine Total Protein Vancomycin Trough 06/06/19 06/06/19 06/06/19 04:00 05:49 11:34 WBC 18.1 H RBC 3.53 L Hgb 9.5 L Hct 30.3 L MCV MCH 27 L MCHC 31 L RDW 19.5 H Plt Count Lymph % (Auto) [place] % (Auto) Eos % (Auto) Lymph # [place] # Eos # Seg Neutrophils % Seg Neuts % (Manual) 87.0 H Lymphocytes % (Manual) 3.0 L Monocytes % (Manual) 8.0 H Eosinophils % (Manual) Nucleated RBC % Seg Neutrophils # Seg Neutrophils # Man 15.7 H Lymphocytes # (Manual) 0.5 L Monocytes # (Manual) 1.4 H Eosinophils # (Manual) PT INR APTT Fibrinogen POC ABG pH ABG pH 7.472 H POC ABG pCO2 POC ABG pO2 ABG pO2 76.4 L ABG HCO3 28.1 H ABG O2 Saturation ABG Base Excess 4.3 H ABG Hemoglobin 12.5 L Oxyhemoglobin 93.8 L Sodium Potassium Chloride Carbon Dioxide BUN Creatinine Glucose POC Glucose 340 H Uric Acid Calcium Phosphorus Magnesium Iron TIBC AST ALT Total Creatine Kinase CK-MB (CK-2) Troponin T NT-Pro-B Natriuret Pep Total Protein Albumin Triglycerides HDL Cholesterol Folate Urine WBC (Auto) Urine Creatinine Urine Total Protein Vancomycin Trough 06/06/19 06/06/19 06/06/19 11:34 12:11 18:10 WBC RBC Hgb Hct MCV MCH MCHC RDW Plt Count Lymph % (Auto) [place] % (Auto) Eos % (Auto) Lymph # [place] # Eos # Seg Neutrophils % Seg Neuts % (Manual) Lymphocytes % (Manual) Monocytes % (Manual) Eosinophils % (Manual) Nucleated RBC % Seg Neutrophils # Seg Neutrophils # Man Lymphocytes # (Manual) Monocytes # (Manual) Eosinophils # (Manual) PT INR APTT Fibrinogen POC ABG pH ABG pH POC ABG pCO2 POC ABG pO2 ABG pO2 ABG HCO3 ABG O2 Saturation ABG Base Excess ABG Hemoglobin Oxyhemoglobin Sodium Potassium Chloride Carbon Dioxide BUN 70 H Creatinine Glucose 310 H POC Glucose 283 H 301 H Uric Acid Calcium 8.3 L Phosphorus 4.60 H Magnesium Iron TIBC AST ALT 75 H Total Creatine Kinase CK-MB (CK-2) Troponin T NT-Pro-B Natriuret Pep Total Protein 5.6 L Albumin 2.9 L Triglycerides HDL Cholesterol Folate Urine WBC (Auto) Urine Creatinine Urine Total Protein Vancomycin Trough 06/06/19 06/06/19 06/07/19 22:21 23:16 04:30 WBC RBC Hgb Hct MCV MCH MCHC RDW Plt Count Lymph % (Auto) [place] % (Auto) Eos % (Auto) Lymph # [place] # Eos # Seg Neutrophils % Seg Neuts % (Manual) Lymphocytes % (Manual) Monocytes % (Manual) Eosinophils % (Manual) Nucleated RBC % Seg Neutrophils # Seg Neutrophils # Man Lymphocytes # (Manual) Monocytes # (Manual) Eosinophils # (Manual) PT INR APTT Fibrinogen POC ABG pH ABG pH 7.480 H POC ABG pCO2 POC ABG pO2 ABG pO2 77.0 L ABG HCO3 27.2 H ABG O2 Saturation ABG Base Excess 3.5 H ABG Hemoglobin 7.1 L Oxyhemoglobin 94.2 L Sodium Potassium Chloride Carbon Dioxide BUN Creatinine Glucose POC Glucose 289 H 343 H Uric Acid Calcium Phosphorus Magnesium Iron TIBC AST ALT Total Creatine Kinase CK-MB (CK-2) Troponin T NT-Pro-B Natriuret Pep Total Protein Albumin Triglycerides HDL Cholesterol Folate Urine WBC (Auto) Urine Creatinine Urine Total Protein Vancomycin Trough 06/07/19 06/07/19 06/07/19 05:15 12:52 18:41 WBC RBC Hgb Hct MCV MCH MCHC RDW Plt Count Lymph % (Auto) [place] % (Auto) Eos % (Auto) Lymph # [place] # Eos # Seg Neutrophils % Seg Neuts % (Manual) Lymphocytes % (Manual) Monocytes % (Manual) Eosinophils % (Manual) Nucleated RBC % Seg Neutrophils # Seg Neutrophils # Man Lymphocytes # (Manual) Monocytes # (Manual) Eosinophils # (Manual) PT INR APTT Fibrinogen POC ABG pH ABG pH POC ABG pCO2 POC ABG pO2 ABG pO2 ABG HCO3 ABG O2 Saturation ABG Base Excess ABG Hemoglobin Oxyhemoglobin Sodium Potassium Chloride Carbon Dioxide BUN Creatinine Glucose POC Glucose 307 H 226 H 187 H Uric Acid Calcium Phosphorus Magnesium Iron TIBC AST ALT Total Creatine Kinase CK-MB (CK-2) Troponin T NT-Pro-B Natriuret Pep Total Protein Albumin Triglycerides HDL Cholesterol Folate Urine WBC (Auto) Urine Creatinine Urine Total Protein Vancomycin Trough 06/07/19 06/07/19 06/08/19 22:54 23:46 04:20 WBC 16.0 H RBC Hgb 10.0 L Hct 32.1 L MCV MCH 27 L MCHC 31 L RDW 19.4 H Plt Count Lymph % (Auto) [place] % (Auto) Eos % (Auto) Lymph # [place] # Eos # Seg Neutrophils % Seg Neuts % (Manual) 87.0 H Lymphocytes % (Manual) 7.0 L Monocytes % (Manual) Eosinophils % (Manual) Nucleated RBC % Seg Neutrophils # Seg Neutrophils # Man 13.9 H Lymphocytes # (Manual) 1.1 L Monocytes # (Manual) 1.0 H Eosinophils # (Manual) PT INR APTT Fibrinogen POC ABG pH ABG pH POC ABG pCO2 POC ABG pO2 ABG pO2 ABG HCO3 ABG O2 Saturation ABG Base Excess ABG Hemoglobin Oxyhemoglobin Sodium Potassium Chloride Carbon Dioxide BUN Creatinine Glucose POC Glucose 199 H 172 H Uric Acid Calcium Phosphorus Magnesium Iron TIBC AST ALT Total Creatine Kinase CK-MB (CK-2) Troponin T NT-Pro-B Natriuret Pep Total Protein Albumin Triglycerides HDL Cholesterol Folate Urine WBC (Auto) Urine Creatinine Urine Total Protein Vancomycin Trough 06/08/19 06/08/19 06/08/19 04:20 05:15 11:31 WBC RBC Hgb Hct MCV MCH MCHC RDW Plt Count Lymph % (Auto) [place] % (Auto) Eos % (Auto) Lymph # [place] # Eos # Seg Neutrophils % Seg Neuts % (Manual) Lymphocytes % (Manual) Monocytes % (Manual) Eosinophils % (Manual) Nucleated RBC % Seg Neutrophils # Seg Neutrophils # Man Lymphocytes # (Manual) Monocytes # (Manual) Eosinophils # (Manual) PT INR APTT Fibrinogen POC ABG pH ABG pH POC ABG pCO2 POC ABG pO2 ABG pO2 ABG HCO3 ABG O2 Saturation ABG Base Excess ABG Hemoglobin Oxyhemoglobin Sodium 146 H D Potassium Chloride Carbon Dioxide BUN 77 H Creatinine Glucose 205 H POC Glucose 209 H 181 H Uric Acid Calcium Phosphorus Magnesium Iron TIBC AST ALT 66 H Total Creatine Kinase CK-MB (CK-2) Troponin T NT-Pro-B Natriuret Pep Total Protein 5.5 L Albumin 2.9 L Triglycerides HDL Cholesterol Folate Urine WBC (Auto) Urine Creatinine Urine Total Protein Vancomycin Trough 06/08/19 06/08/19 06/09/19 17:28 23:24 05:20 WBC RBC Hgb Hct MCV MCH MCHC RDW Plt Count Lymph % (Auto) [place] % (Auto) Eos % (Auto) Lymph # [place] # Eos # Seg Neutrophils % Seg Neuts % (Manual) Lymphocytes % (Manual) Monocytes % (Manual) Eosinophils % (Manual) Nucleated RBC % Seg Neutrophils # Seg Neutrophils # Man Lymphocytes # (Manual) Monocytes # (Manual) Eosinophils # (Manual) PT INR APTT Fibrinogen POC ABG pH ABG pH POC ABG pCO2 POC ABG pO2 ABG pO2 ABG HCO3 ABG O2 Saturation ABG Base Excess ABG Hemoglobin Oxyhemoglobin Sodium Potassium Chloride Carbon Dioxide BUN Creatinine Glucose POC Glucose 215 H 200 H 173 H Uric Acid Calcium Phosphorus Magnesium Iron TIBC AST ALT Total Creatine Kinase CK-MB (CK-2) Troponin T NT-Pro-B Natriuret Pep Total Protein Albumin Triglycerides HDL Cholesterol Folate Urine WBC (Auto) Urine Creatinine Urine Total Protein Vancomycin Trough 06/09/19 06/09/19 06/09/19 12:07 18:32 23:51 WBC RBC Hgb Hct MCV MCH MCHC RDW Plt Count Lymph % (Auto) [place] % (Auto) Eos % (Auto) Lymph # [place] # Eos # Seg Neutrophils % Seg Neuts % (Manual) Lymphocytes % (Manual) Monocytes % (Manual) Eosinophils % (Manual) Nucleated RBC % Seg Neutrophils # Seg Neutrophils # Man Lymphocytes # (Manual) Monocytes # (Manual) Eosinophils # (Manual) PT INR APTT Fibrinogen POC ABG pH ABG pH POC ABG pCO2 POC ABG pO2 ABG pO2 ABG HCO3 ABG O2 Saturation ABG Base Excess ABG Hemoglobin Oxyhemoglobin Sodium Potassium Chloride Carbon Dioxide BUN Creatinine Glucose POC Glucose 117 H 169 H 147 H Uric Acid Calcium Phosphorus Magnesium Iron TIBC AST ALT Total Creatine Kinase CK-MB (CK-2) Troponin T NT-Pro-B Natriuret Pep Total Protein Albumin Triglycerides HDL Cholesterol Folate Urine WBC (Auto) Urine Creatinine Urine Total Protein Vancomycin Trough 06/10/19 06/10/19 06/10/19 05:45 05:45 06:01 WBC 14.6 H RBC Hgb 9.9 L Hct 32.2 L MCV MCH 27 L MCHC 31 L RDW 19.6 H Plt Count Lymph % (Auto) 10.[address] [place] % (Auto) 9.4 H Eos % (Auto) Lymph # [place] # 1.4 H Eos # Seg Neutrophils % 79.9 H Seg Neuts % (Manual) Lymphocytes % (Manual) Monocytes % (Manual) Eosinophils % (Manual) Nucleated RBC % Seg Neutrophils # 11.7 H Seg Neutrophils # Man Lymphocytes # (Manual) Monocytes # (Manual) Eosinophils # (Manual) PT INR APTT Fibrinogen POC ABG pH ABG pH POC ABG pCO2 POC ABG pO2 ABG pO2 ABG HCO3 ABG O2 Saturation ABG Base Excess ABG Hemoglobin Oxyhemoglobin Sodium 150 H Potassium Chloride 108.3 H Carbon Dioxide BUN 49 H Creatinine Glucose 172 H POC Glucose 165 H Uric Acid Calcium Phosphorus Magnesium 1.40 L Iron TIBC AST ALT Total Creatine Kinase CK-MB (CK-2) Troponin T NT-Pro-B Natriuret Pep Total Protein Albumin Triglycerides HDL Cholesterol Folate Urine WBC (Auto) Urine Creatinine Urine Total Protein Vancomycin Trough 06/10/19 06/10/19 06/11/19 12:11 18:30 00:02 WBC RBC Hgb Hct MCV MCH MCHC RDW Plt Count Lymph % (Auto) [place] % (Auto) Eos % (Auto) Lymph # [facility] # Eos # Seg Neutrophils % Seg Neuts % (Manual) Lymphocytes % (Manual) Monocytes % (Manual) Eosinophils % (Manual) Nucleated RBC % Seg Neutrophils # Seg Neutrophils # Man Lymphocytes # (Manual) Monocytes # (Manual) Eosinophils # (Manual) PT INR APTT Fibrinogen POC ABG pH ABG pH POC ABG pCO2 POC ABG pO2 ABG pO2 ABG HCO3 ABG O2 Saturation ABG Base Excess ABG Hemoglobin Oxyhemoglobin Sodium Potassium Chloride Carbon Dioxide BUN Creatinine Glucose POC Glucose 150 H 154 H 130 H Uric Acid Calcium Phosphorus Magnesium Iron TIBC AST ALT Total Creatine Kinase CK-MB (CK-2) Troponin T NT-Pro-B Natriuret Pep Total Protein Albumin Triglycerides HDL Cholesterol Folate Urine WBC (Auto) Urine Creatinine Urine Total Protein Vancomycin Trough 06/11/19 06/11/19 06/11/19 05:33 08:34 12:33 WBC RBC Hgb Hct MCV MCH MCHC RDW Plt Count Lymph % (Auto) [place] % (Auto) Eos % (Auto) Lymph # [facility] # Eos # Seg Neutrophils % Seg Neuts % (Manual) Lymphocytes % (Manual) Monocytes % (Manual) Eosinophils % (Manual) Nucleated RBC % Seg Neutrophils # Seg Neutrophils # Man Lymphocytes # (Manual) Monocytes # (Manual) Eosinophils # (Manual) PT INR APTT Fibrinogen POC ABG pH ABG pH POC ABG pCO2 POC ABG pO2 ABG pO2 ABG HCO3 ABG O2 Saturation ABG Base Excess ABG Hemoglobin Oxyhemoglobin Sodium 154 H Potassium Chloride 111.6 H Carbon Dioxide BUN 41 H Creatinine Glucose 147 H POC Glucose 183 H 185 H Uric Acid Calcium Phosphorus Magnesium Iron TIBC AST ALT Total Creatine Kinase CK-MB (CK-2) Troponin T NT-Pro-B Natriuret Pep Total Protein Albumin Triglycerides HDL Cholesterol Folate Urine WBC (Auto) Urine Creatinine Urine Total Protein Vancomycin Trough 06/11/19 06/11/19 06/12/19 18:22 23:46 03:21 WBC 11.9 H RBC 3.61 L Hgb 9.9 L Hct 31.7 L MCV MCH 27 L MCHC 31 L RDW 19.3 H Plt Count Lymph % (Auto) 10.[address] [place] % (Auto) 8.6 H Eos % (Auto) Lymph # [facility] # 1.0 H Eos # Seg Neutrophils % 80.6 H Seg Neuts % (Manual) Lymphocytes % (Manual) Monocytes % (Manual) Eosinophils % (Manual) Nucleated RBC % Seg Neutrophils # 9.6 H Seg Neutrophils # Man Lymphocytes # (Manual) Monocytes # (Manual) Eosinophils # (Manual) PT INR APTT Fibrinogen POC ABG pH ABG pH POC ABG pCO2 POC ABG pO2 ABG pO2 ABG HCO3 ABG O2 Saturation ABG Base Excess ABG Hemoglobin Oxyhemoglobin Sodium Potassium Chloride Carbon Dioxide BUN Creatinine Glucose POC Glucose 158 H 182 H Uric Acid Calcium Phosphorus Magnesium Iron TIBC AST ALT Total Creatine Kinase CK-MB (CK-2) Troponin T NT-Pro-B Natriuret Pep Total Protein Albumin Triglycerides HDL Cholesterol Folate Urine WBC (Auto) Urine Creatinine Urine Total Protein Vancomycin Trough 06/12/19 06/12/19 06/12/19 03:21 06:04 11:28 WBC RBC Hgb Hct MCV MCH MCHC RDW Plt Count Lymph % (Auto) [place] % (Auto) Eos % (Auto) Lymph # [facility] # Eos # Seg Neutrophils % Seg Neuts % (Manual) Lymphocytes % (Manual) Monocytes % (Manual) Eosinophils % (Manual) Nucleated RBC % Seg Neutrophils # Seg Neutrophils # Man Lymphocytes # (Manual) Monocytes # (Manual) Eosinophils # (Manual) PT INR APTT Fibrinogen POC ABG pH ABG pH POC ABG pCO2 POC ABG pO2 ABG pO2 ABG HCO3 ABG O2 Saturation ABG Base Excess ABG Hemoglobin Oxyhemoglobin Sodium 148 H Potassium Chloride 107.3 H Carbon Dioxide BUN 34 H Creatinine 0.7 L Glucose 194 H POC Glucose 133 H 167 H Uric Acid Calcium Phosphorus Magnesium 1.40 L Iron TIBC AST ALT Total Creatine Kinase CK-MB (CK-2) Troponin T NT-Pro-B Natriuret Pep Total Protein Albumin Triglycerides HDL Cholesterol Folate Urine WBC (Auto) Urine Creatinine Urine Total Protein Vancomycin Trough 06/12/19 06/12/19 06/13/19 18:47 21:27 00:04 WBC RBC Hgb Hct MCV MCH MCHC RDW Plt Count Lymph % (Auto) [place] % (Auto) Eos % (Auto) Lymph # [facility] # Eos # Seg Neutrophils % Seg Neuts % (Manual) Lymphocytes % (Manual) Monocytes % (Manual) Eosinophils % (Manual) Nucleated RBC % Seg Neutrophils # Seg Neutrophils # Man Lymphocytes # (Manual) Monocytes # (Manual) Eosinophils # (Manual) PT INR APTT Fibrinogen POC ABG pH ABG pH POC ABG pCO2 POC ABG pO2 ABG pO2 ABG HCO3 ABG O2 Saturation ABG Base Excess ABG Hemoglobin Oxyhemoglobin Sodium Potassium Chloride Carbon Dioxide BUN Creatinine Glucose POC Glucose 210 H 263 H 248 H Uric Acid Calcium Phosphorus Magnesium Iron TIBC AST ALT Total Creatine Kinase CK-MB (CK-2) Troponin T NT-Pro-B Natriuret Pep Total Protein Albumin Triglycerides HDL Cholesterol Folate Urine WBC (Auto) Urine Creatinine Urine Total Protein Vancomycin Trough 06/13/19 06/13/19 06/13/19 04:32 05:46 13:30 WBC RBC Hgb Hct MCV MCH MCHC RDW Plt Count Lymph % (Auto) [place] % (Auto) Eos % (Auto) Lymph # [place] # Eos # Seg Neutrophils % Seg Neuts % (Manual) Lymphocytes % (Manual) Monocytes % (Manual) Eosinophils % (Manual) Nucleated RBC % Seg Neutrophils # Seg Neutrophils # Man Lymphocytes # (Manual) Monocytes # (Manual) Eosinophils # (Manual) PT INR APTT Fibrinogen POC ABG pH ABG pH POC ABG pCO2 POC ABG pO2 ABG pO2 ABG HCO3 ABG O2 Saturation ABG Base Excess ABG Hemoglobin Oxyhemoglobin Sodium Potassium Chloride Carbon Dioxide BUN 27 H Creatinine 0.7 L Glucose 253 H POC Glucose 201 H 241 H Uric Acid Calcium Phosphorus Magnesium Iron TIBC AST ALT Total Creatine Kinase CK-MB (CK-2) Troponin T NT-Pro-B Natriuret Pep Total Protein Albumin Triglycerides HDL Cholesterol Folate Urine WBC (Auto) Urine Creatinine Urine Total Protein Vancomycin Trough 06/13/19 06/13/19 06/14/19 17:33 23:49 04:50 WBC RBC Hgb Hct MCV MCH MCHC RDW Plt Count Lymph % (Auto) [place] % (Auto) Eos % (Auto) Lymph # [place] # Eos # Seg Neutrophils % Seg Neuts % (Manual) Lymphocytes % (Manual) Monocytes % (Manual) Eosinophils % (Manual) Nucleated RBC % Seg Neutrophils # Seg Neutrophils # Man Lymphocytes # (Manual) Monocytes # (Manual) Eosinophils # (Manual) PT INR APTT Fibrinogen POC ABG pH ABG pH POC ABG pCO2 POC ABG pO2 ABG pO2 ABG HCO3 ABG O2 Saturation ABG Base Excess ABG Hemoglobin Oxyhemoglobin Sodium Potassium Chloride Carbon Dioxide BUN 37 H Creatinine Glucose 256 H POC Glucose 264 H 236 H Uric Acid Calcium Phosphorus Magnesium Iron TIBC AST ALT Total Creatine Kinase CK-MB (CK-2) Troponin T NT-Pro-B Natriuret Pep Total Protein Albumin Triglycerides HDL Cholesterol Folate Urine WBC (Auto) Urine Creatinine Urine Total Protein Vancomycin Trough 06/14/19 06/14/19 06/14/19 05:26 12:31 18:32 WBC RBC Hgb Hct MCV MCH MCHC RDW Plt Count Lymph % (Auto) [place] % (Auto) Eos % (Auto) Lymph # [place] # Eos # Seg Neutrophils % Seg Neuts % (Manual) Lymphocytes % (Manual) Monocytes % (Manual) Eosinophils % (Manual) Nucleated RBC % Seg Neutrophils # Seg Neutrophils # Man Lymphocytes # (Manual) Monocytes # (Manual) Eosinophils # (Manual) PT INR APTT Fibrinogen POC ABG pH ABG pH POC ABG pCO2 POC ABG pO2 ABG pO2 ABG HCO3 ABG O2 Saturation ABG Base Excess ABG Hemoglobin Oxyhemoglobin Sodium Potassium Chloride Carbon Dioxide BUN Creatinine Glucose POC Glucose 239 H 116 H 247 H Uric Acid Calcium Phosphorus Magnesium Iron TIBC AST ALT Total Creatine Kinase CK-MB (CK-2) Troponin T NT-Pro-B Natriuret Pep Total Protein Albumin Triglycerides HDL Cholesterol Folate Urine WBC (Auto) Urine Creatinine Urine Total Protein Vancomycin Trough 06/14/19 06/15/19 06/15/19 23:57 04:05 05:55 WBC RBC Hgb Hct MCV MCH MCHC RDW Plt Count Lymph % (Auto) [place] % (Auto) Eos % (Auto) Lymph # [place] # Eos # Seg Neutrophils % Seg Neuts % (Manual) Lymphocytes % (Manual) Monocytes % (Manual) Eosinophils % (Manual) Nucleated RBC % Seg Neutrophils # Seg Neutrophils # Man Lymphocytes # (Manual) Monocytes # (Manual) Eosinophils # (Manual) PT INR APTT Fibrinogen POC ABG pH ABG pH POC ABG pCO2 POC ABG pO2 ABG pO2 ABG HCO3 ABG O2 Saturation ABG Base Excess ABG Hemoglobin Oxyhemoglobin Sodium Potassium Chloride Carbon Dioxide BUN 46 H Creatinine 0.7 L Glucose 265 H POC Glucose 206 H 265 H Uric Acid Calcium Phosphorus Magnesium Iron TIBC AST ALT Total Creatine Kinase CK-MB (CK-2) Troponin T NT-Pro-B Natriuret Pep Total Protein Albumin Triglycerides HDL Cholesterol Folate Urine WBC (Auto) Urine Creatinine Urine Total Protein Vancomycin Trough 06/15/19 06/15/19 06/15/19 12:08 18:45 23:41 WBC RBC Hgb Hct MCV MCH MCHC RDW Plt Count Lymph % (Auto) [place] % (Auto) Eos % (Auto) Lymph # [place] # Eos # Seg Neutrophils % Seg Neuts % (Manual) Lymphocytes % (Manual) Monocytes % (Manual) Eosinophils % (Manual) Nucleated RBC % Seg Neutrophils # Seg Neutrophils # Man Lymphocytes # (Manual) Monocytes # (Manual) Eosinophils # (Manual) PT INR APTT Fibrinogen POC ABG pH ABG pH POC ABG pCO2 POC ABG pO2 ABG pO2 ABG HCO3 ABG O2 Saturation ABG Base Excess ABG Hemoglobin Oxyhemoglobin Sodium Potassium Chloride Carbon Dioxide BUN Creatinine Glucose POC Glucose 224 H 177 H 193 H Uric Acid Calcium Phosphorus Magnesium Iron TIBC AST ALT Total Creatine Kinase CK-MB (CK-2) Troponin T NT-Pro-B Natriuret Pep Total Protein Albumin Triglycerides HDL Cholesterol Folate Urine WBC (Auto) Urine Creatinine Urine Total Protein Vancomycin Trough 06/16/19 06/16/19 06/16/19 05:00 05:00 05:40 WBC 11.9 H RBC 3.24 L Hgb 9.0 L Hct 29.0 L MCV MCH MCHC 31 L RDW 18.6 H Plt Count 111 L Lymph % (Auto) [place] % (Auto) Eos % (Auto) Lymph # [place] # Eos # Seg Neutrophils % Seg Neuts % (Manual) 92.0 H Lymphocytes % (Manual) 2.0 L Monocytes % (Manual) Eosinophils % (Manual) Nucleated RBC % Seg Neutrophils # Seg Neutrophils # Man 10.9 H Lymphocytes # (Manual) 0.2 L Monocytes # (Manual) Eosinophils # (Manual) PT INR APTT Fibrinogen POC ABG pH ABG pH POC ABG pCO2 POC ABG pO2 ABG pO2 ABG HCO3 ABG O2 Saturation ABG Base Excess ABG Hemoglobin Oxyhemoglobin Sodium Potassium Chloride Carbon Dioxide 33 H BUN 49 H Creatinine 0.7 L Glucose 264 H POC Glucose 247 H Uric Acid Calcium Phosphorus Magnesium Iron TIBC AST ALT Total Creatine Kinase CK-MB (CK-2) Troponin T NT-Pro-B Natriuret Pep Total Protein Albumin Triglycerides HDL Cholesterol Folate Urine WBC (Auto) Urine Creatinine Urine Total Protein Vancomycin Trough 06/16/19 06/16/19 06/16/19 12:03 17:11 18:11 WBC RBC Hgb Hct MCV MCH MCHC RDW Plt Count Lymph % (Auto) [place] % (Auto) Eos % (Auto) Lymph # [place] # Eos # Seg Neutrophils % Seg Neuts % (Manual) Lymphocytes % (Manual) Monocytes % (Manual) Eosinophils % (Manual) Nucleated RBC % Seg Neutrophils # Seg Neutrophils # Man Lymphocytes # (Manual) Monocytes # (Manual) Eosinophils # (Manual) PT INR APTT Fibrinogen POC ABG pH ABG pH 7.289 L POC ABG pCO2 POC ABG pO2 ABG pO2 399.3 H ABG HCO3 30.1 H ABG O2 Saturation 99.6 H ABG Base Excess ABG Hemoglobin 8.6 L Oxyhemoglobin Sodium Potassium Chloride Carbon Dioxide BUN Creatinine Glucose POC Glucose 252 H 254 H Uric Acid Calcium Phosphorus Magnesium Iron TIBC AST ALT Total Creatine Kinase CK-MB (CK-2) Troponin T NT-Pro-B Natriuret Pep Total Protein Albumin Triglycerides HDL Cholesterol Folate Urine WBC (Auto) Urine Creatinine Urine Total Protein Vancomycin Trough 06/16/19 06/17/19 06/17/19 23:16 05:30 05:53 WBC RBC Hgb Hct MCV MCH MCHC RDW Plt Count Lymph % (Auto) [place] % (Auto) Eos % (Auto) Lymph # [place] # Eos # Seg Neutrophils % Seg Neuts % (Manual) Lymphocytes % (Manual) Monocytes % (Manual) Eosinophils % (Manual) Nucleated RBC % Seg Neutrophils # Seg Neutrophils # Man Lymphocytes # (Manual) Monocytes # (Manual) Eosinophils # (Manual) PT INR APTT Fibrinogen POC ABG pH ABG pH POC ABG pCO2 POC ABG pO2 ABG pO2 ABG HCO3 ABG O2 Saturation ABG Base Excess ABG Hemoglobin Oxyhemoglobin Sodium 147 H Potassium Chloride Carbon Dioxide 32 H BUN 60 H Creatinine Glucose 205 H POC Glucose 238 H 211 H Uric Acid Calcium Phosphorus Magnesium Iron TIBC AST ALT Total Creatine Kinase CK-MB (CK-2) Troponin T NT-Pro-B Natriuret Pep Total Protein Albumin Triglycerides HDL Cholesterol Folate Urine WBC (Auto) Urine Creatinine Urine Total Protein Vancomycin Trough 06/17/19 06/17/19 06/17/19 09:50 12:27 12:45 WBC RBC 2.79 L Hgb 8.2 L Hct 24.6 L MCV MCH MCHC RDW 18.5 H Plt Count 95 L Lymph % (Auto) [place] % (Auto) Eos % (Auto) Lymph # [place] # Eos # Seg Neutrophils % Seg Neuts % (Manual) Lymphocytes % (Manual) Monocytes % (Manual) Eosinophils % (Manual) Nucleated RBC % Seg Neutrophils # Seg Neutrophils # Man Lymphocytes # (Manual) Monocytes # (Manual) Eosinophils # (Manual) PT INR APTT Fibrinogen 194 L POC ABG pH ABG pH POC ABG pCO2 POC ABG pO2 ABG pO2 ABG HCO3 ABG O2 Saturation ABG Base Excess ABG Hemoglobin Oxyhemoglobin Sodium Potassium Chloride Carbon Dioxide BUN Creatinine Glucose POC Glucose 224 H Uric Acid Calcium Phosphorus Magnesium Iron TIBC AST ALT Total Creatine Kinase CK-MB (CK-2) Troponin T NT-Pro-B Natriuret Pep Total Protein Albumin Triglycerides HDL Cholesterol Folate Urine WBC (Auto) Urine Creatinine Urine Total Protein Vancomycin Trough 06/17/19 06/17/19 06/17/19 18:41 22:00 23:23 WBC RBC Hgb Hct MCV MCH MCHC RDW Plt Count Lymph % (Auto) [place] % (Auto) Eos % (Auto) Lymph # [place] # Eos # Seg Neutrophils % Seg Neuts % (Manual) Lymphocytes % (Manual) Monocytes % (Manual) Eosinophils % (Manual) Nucleated RBC % Seg Neutrophils # Seg Neutrophils # Man Lymphocytes # (Manual) Monocytes # (Manual) Eosinophils # (Manual) PT INR APTT Fibrinogen POC ABG pH ABG pH POC ABG pCO2 POC ABG pO2 ABG pO2 ABG HCO3 ABG O2 Saturation ABG Base Excess ABG Hemoglobin Oxyhemoglobin Sodium Potassium Chloride Carbon Dioxide BUN Creatinine Glucose POC Glucose 198 H 166 H 171 H Uric Acid Calcium Phosphorus Magnesium Iron TIBC AST ALT Total Creatine Kinase CK-MB (CK-2) Troponin T NT-Pro-B Natriuret Pep Total Protein Albumin Triglycerides HDL Cholesterol Folate Urine WBC (Auto) Urine Creatinine Urine Total Protein Vancomycin Trough 06/17/19 06/18/19 06/18/19 Unknown 03:50 04:25 WBC RBC Hgb Hct MCV MCH MCHC RDW Plt Count Lymph % (Auto) [place] % (Auto) Eos % (Auto) Lymph # [place] # Eos # Seg Neutrophils % Seg Neuts % (Manual) Lymphocytes % (Manual) Monocytes % (Manual) Eosinophils % (Manual) Nucleated RBC % Seg Neutrophils # Seg Neutrophils # Man Lymphocytes # (Manual) Monocytes # (Manual) Eosinophils # (Manual) PT INR APTT Fibrinogen POC ABG pH ABG pH 7.564 H 7.499 H POC ABG pCO2 POC ABG pO2 ABG pO2 238.6 H 130.8 H ABG HCO3 33.6 H 32.5 H ABG O2 Saturation 99.4 H ABG Base Excess 10.6 H 8.5 H ABG Hemoglobin 7.9 L 8.8 L Oxyhemoglobin Sodium 151 H Potassium 3.4 L Chloride Carbon Dioxide BUN 66 H Creatinine Glucose 189 H POC Glucose Uric Acid Calcium Phosphorus Magnesium Iron TIBC AST ALT Total Creatine Kinase CK-MB (CK-2) Troponin T NT-Pro-B Natriuret Pep Total Protein Albumin Triglycerides HDL Cholesterol Folate Urine WBC (Auto) Urine Creatinine Urine Total Protein Vancomycin Trough 06/18/19 06/18/19 06/18/19 05:25 05:27 11:50 WBC RBC 2.61 L Hgb 7.4 L Hct 22.9 L MCV MCH MCHC RDW 19.9 H Plt Count 81 L Lymph % (Auto) 12.[address] [place] % (Auto) 7.7 H Eos % (Auto) Lymph # 1.[address] [place] # Eos # Seg Neutrophils % 77.4 H Seg Neuts % (Manual) Lymphocytes % (Manual) Monocytes % (Manual) Eosinophils % (Manual) Nucleated RBC % Seg Neutrophils # Seg Neutrophils # Man Lymphocytes # (Manual) Monocytes # (Manual) Eosinophils # (Manual) PT INR APTT Fibrinogen POC ABG pH ABG pH POC ABG pCO2 POC ABG pO2 ABG pO2 ABG HCO3 ABG O2 Saturation ABG Base Excess ABG Hemoglobin Oxyhemoglobin Sodium Potassium Chloride Carbon Dioxide BUN Creatinine Glucose POC Glucose 186 H 263 H Uric Acid Calcium Phosphorus Magnesium Iron TIBC AST ALT Total Creatine Kinase CK-MB (CK-2) Troponin T NT-Pro-B Natriuret Pep Total Protein Albumin Triglycerides HDL Cholesterol Folate Urine WBC (Auto) Urine Creatinine Urine Total Protein Vancomycin Trough 06/18/19 06/18/19 06/18/19 18:35 21:31 23:21 WBC RBC Hgb Hct MCV MCH MCHC RDW Plt Count Lymph % (Auto) [place] % (Auto) Eos % (Auto) Lymph # [place] # Eos # Seg Neutrophils % Seg Neuts % (Manual) Lymphocytes % (Manual) Monocytes % (Manual) Eosinophils % (Manual) Nucleated RBC % Seg Neutrophils # Seg Neutrophils # Man Lymphocytes # (Manual) Monocytes # (Manual) Eosinophils # (Manual) PT INR APTT Fibrinogen POC ABG pH ABG pH POC ABG pCO2 POC ABG pO2 ABG pO2 ABG HCO3 ABG O2 Saturation ABG Base Excess ABG Hemoglobin Oxyhemoglobin Sodium Potassium Chloride Carbon Dioxide BUN Creatinine Glucose POC Glucose 154 H 186 H 202 H Uric Acid Calcium Phosphorus Magnesium Iron TIBC AST ALT Total Creatine Kinase CK-MB (CK-2) Troponin T NT-Pro-B Natriuret Pep Total Protein Albumin Triglycerides HDL Cholesterol Folate Urine WBC (Auto) Urine Creatinine Urine Total Protein Vancomycin Trough 06/19/19 06/19/19 06/19/19 03:18 04:30 04:30 WBC RBC 2.65 L Hgb 7.5 L Hct 23.1 L MCV MCH MCHC RDW 19.4 H Plt Count 74 L Lymph % (Auto) 8.[address] [place] % (Auto) 9.4 H Eos % (Auto) 4.7 H Lymph # 0.[address] [place] # Eos # Seg Neutrophils % 76.6 H Seg Neuts % (Manual) Lymphocytes % (Manual) Monocytes % (Manual) Eosinophils % (Manual) Nucleated RBC % Seg Neutrophils # Seg Neutrophils # Man Lymphocytes # (Manual) Monocytes # (Manual) Eosinophils # (Manual) PT INR APTT Fibrinogen POC ABG pH ABG pH 7.452 H POC ABG pCO2 POC ABG pO2 ABG pO2 105.5 H ABG HCO3 32.3 H ABG O2 Saturation ABG Base Excess 7.6 H ABG Hemoglobin 6.9 L Oxyhemoglobin Sodium 150 H Potassium 3.3 L Chloride Carbon Dioxide 31 H BUN 56 H Creatinine Glucose 197 H POC Glucose Uric Acid Calcium Phosphorus Magnesium Iron TIBC AST ALT Total Creatine Kinase CK-MB (CK-2) Troponin T NT-Pro-B Natriuret Pep Total Protein Albumin Triglycerides 210 H HDL Cholesterol Folate Urine WBC (Auto) Urine Creatinine Urine Total Protein Vancomycin Trough 06/19/19 06/19/19 06/19/19 05:24 12:18 18:55 WBC RBC Hgb Hct MCV MCH MCHC RDW Plt Count Lymph % (Auto) [place] % (Auto) Eos % (Auto) Lymph # [place] # Eos # Seg Neutrophils % Seg Neuts % (Manual) Lymphocytes % (Manual) Monocytes % (Manual) Eosinophils % (Manual) Nucleated RBC % Seg Neutrophils # Seg Neutrophils # Man Lymphocytes # (Manual) Monocytes # (Manual) Eosinophils # (Manual) PT INR APTT Fibrinogen POC ABG pH ABG pH POC ABG pCO2 POC ABG pO2 ABG pO2 ABG HCO3 ABG O2 Saturation ABG Base Excess ABG Hemoglobin Oxyhemoglobin Sodium Potassium Chloride Carbon Dioxide BUN Creatinine Glucose POC Glucose 176 H 260 H 192 H Uric Acid Calcium Phosphorus Magnesium Iron TIBC AST ALT Total Creatine Kinase CK-MB (CK-2) Troponin T NT-Pro-B Natriuret Pep Total Protein Albumin Triglycerides HDL Cholesterol Folate Urine WBC (Auto) Urine Creatinine Urine Total Protein Vancomycin Trough 06/19/19 06/19/19 06/20/19 22:57 23:46 04:40 WBC RBC 2.79 L Hgb 7.9 L Hct 24.3 L MCV MCH MCHC RDW 19.6 H Plt Count 92 L Lymph % (Auto) 9.[address] % (Auto) 12.0 H Eos % (Auto) 5.2 H Lymph # 0.[address] # 1.2 H Eos # 0.5 H Seg Neutrophils % 73.3 H Seg Neuts % (Manual) Lymphocytes % (Manual) Monocytes % (Manual) Eosinophils % (Manual) Nucleated RBC % Seg Neutrophils # Seg Neutrophils # Man Lymphocytes # (Manual) Monocytes # (Manual) Eosinophils # (Manual) PT INR APTT Fibrinogen POC ABG pH ABG pH POC ABG pCO2 POC ABG pO2 ABG pO2 ABG HCO3 ABG O2 Saturation ABG Base Excess ABG Hemoglobin Oxyhemoglobin Sodium Potassium Chloride Carbon Dioxide BUN Creatinine Glucose POC Glucose 145 H 216 H Uric Acid Calcium Phosphorus Magnesium Iron TIBC AST ALT Total Creatine Kinase CK-MB (CK-2) Troponin T NT-Pro-B Natriuret Pep Total Protein Albumin Triglycerides HDL Cholesterol Folate Urine WBC (Auto) Urine Creatinine Urine Total Protein Vancomycin Trough 06/20/19 06/20/19 06/20/19 04:40 05:40 05:54 WBC RBC Hgb Hct MCV MCH MCHC RDW Plt Count Lymph % (Auto) [place] % (Auto) Eos % (Auto) Lymph # [place] # Eos # Seg Neutrophils % Seg Neuts % (Manual) Lymphocytes % (Manual) Monocytes % (Manual) Eosinophils % (Manual) Nucleated RBC % Seg Neutrophils # Seg Neutrophils # Man Lymphocytes # (Manual) Monocytes # (Manual) Eosinophils # (Manual) PT INR APTT Fibrinogen POC ABG pH ABG pH 7.455 H POC ABG pCO2 POC ABG pO2 ABG pO2 60.9 L ABG HCO3 30.3 H ABG O2 Saturation 92.3 L ABG Base Excess 5.8 H ABG Hemoglobin 8.2 L Oxyhemoglobin 90.1 L Sodium Potassium 3.5 L Chloride Carbon Dioxide BUN 59 H Creatinine Glucose 200 H POC Glucose 190 H Uric Acid Calcium Phosphorus Magnesium 1.60 L Iron TIBC AST ALT Total Creatine Kinase CK-MB (CK-2) Troponin T NT-Pro-B Natriuret Pep Total Protein Albumin Triglycerides HDL Cholesterol Folate Urine WBC (Auto) Urine Creatinine Urine Total Protein Vancomycin Trough 06/20/19 06/20/19 06/20/19 09:12 09:12 12:24 WBC RBC Hgb Hct MCV MCH MCHC RDW Plt Count Lymph % (Auto) [place] % (Auto) Eos % (Auto) Lymph # [place] # Eos # Seg Neutrophils % Seg Neuts % (Manual) Lymphocytes % (Manual) Monocytes % (Manual) Eosinophils % (Manual) Nucleated RBC % Seg Neutrophils # Seg Neutrophils # Man Lymphocytes # (Manual) Monocytes # (Manual) Eosinophils # (Manual) PT INR APTT Fibrinogen POC ABG pH ABG pH POC ABG pCO2 POC ABG pO2 ABG pO2 ABG HCO3 ABG O2 Saturation ABG Base Excess ABG Hemoglobin Oxyhemoglobin Sodium Potassium Chloride Carbon Dioxide BUN Creatinine Glucose POC Glucose 225 H Uric Acid Calcium Phosphorus Magnesium Iron 45 L TIBC 110 L AST ALT Total Creatine Kinase CK-MB (CK-2) Troponin T NT-Pro-B Natriuret Pep Total Protein Albumin Triglycerides HDL Cholesterol Folate 7.01 L Urine WBC (Auto) Urine Creatinine Urine Total Protein Vancomycin Trough 06/20/19 06/20/19 06/20/19 17:42 21:55 23:24 WBC RBC Hgb Hct MCV MCH MCHC RDW Plt Count Lymph % (Auto) [place] % (Auto) Eos % (Auto) Lymph # [place] # Eos # Seg Neutrophils % Seg Neuts % (Manual) Lymphocytes % (Manual) Monocytes % (Manual) Eosinophils % (Manual) Nucleated RBC % Seg Neutrophils # Seg Neutrophils # Man Lymphocytes # (Manual) Monocytes # (Manual) Eosinophils # (Manual) PT INR APTT Fibrinogen POC ABG pH ABG pH POC ABG pCO2 POC ABG pO2 ABG pO2 ABG HCO3 ABG O2 Saturation ABG Base Excess ABG Hemoglobin Oxyhemoglobin Sodium Potassium Chloride Carbon Dioxide BUN Creatinine Glucose POC Glucose 255 H 218 H 215 H Uric Acid Calcium Phosphorus Magnesium Iron TIBC AST ALT Total Creatine Kinase CK-MB (CK-2) Troponin T NT-Pro-B Natriuret Pep Total Protein Albumin Triglycerides HDL Cholesterol Folate Urine WBC (Auto) Urine Creatinine Urine Total Protein Vancomycin Trough 06/21/19 06/21/19 06/21/19 03:32 03:40 05:20 WBC 12.8 H RBC 3.03 L Hgb 8.5 L Hct 26.2 L MCV MCH MCHC RDW 19.4 H Plt Count 131 L Lymph % (Auto) [place] % (Auto) Eos % (Auto) Lymph # [place] # Eos # Seg Neutrophils % Seg Neuts % (Manual) 78.0 H Lymphocytes % (Manual) 5.0 L Monocytes % (Manual) 11.0 H Eosinophils % (Manual) Nucleated RBC % Seg Neutrophils # Seg Neutrophils # Man 10.0 H Lymphocytes # (Manual) 0.6 L Monocytes # (Manual) 1.4 H Eosinophils # (Manual) 0.5 H PT INR APTT Fibrinogen POC ABG pH ABG pH 7.476 H POC ABG pCO2 POC ABG pO2 ABG pO2 162.0 H ABG HCO3 26.8 H ABG O2 Saturation 99.1 H ABG Base Excess 3.1 H ABG Hemoglobin 8.6 L Oxyhemoglobin Sodium Potassium Chloride Carbon Dioxide BUN Creatinine Glucose POC Glucose 202 H Uric Acid Calcium Phosphorus Magnesium Iron TIBC AST ALT Total Creatine Kinase CK-MB (CK-2) Troponin T NT-Pro-B Natriuret Pep Total Protein Albumin Triglycerides HDL Cholesterol Folate Urine WBC (Auto) Urine Creatinine Urine Total Protein Vancomycin Trough 06/21/19 06/21/19 06/21/19 05:20 12:30 18:18 WBC RBC Hgb Hct MCV MCH MCHC RDW Plt Count Lymph % (Auto) [place] % (Auto) Eos % (Auto) Lymph # [place] # Eos # Seg Neutrophils % Seg Neuts % (Manual) Lymphocytes % (Manual) Monocytes % (Manual) Eosinophils % (Manual) Nucleated RBC % Seg Neutrophils # Seg Neutrophils # Man Lymphocytes # (Manual) Monocytes # (Manual) Eosinophils # (Manual) PT INR APTT Fibrinogen POC ABG pH ABG pH POC ABG pCO2 POC ABG pO2 ABG pO2 ABG HCO3 ABG O2 Saturation ABG Base Excess ABG Hemoglobin Oxyhemoglobin Sodium Potassium Chloride 97.7 L Carbon Dioxide BUN 69 H Creatinine Glucose 239 H POC Glucose 176 H 187 H Uric Acid Calcium Phosphorus Magnesium 2.40 H Iron TIBC AST ALT Total Creatine Kinase CK-MB (CK-2) Troponin T NT-Pro-B Natriuret Pep Total Protein Albumin Triglycerides HDL Cholesterol Folate Urine WBC (Auto) Urine Creatinine Urine Total Protein Vancomycin Trough 06/22/19 06/22/19 06/22/19 04:11 05:30 05:30 WBC 12.6 H RBC 3.10 L Hgb 8.7 L Hct 27.0 L MCV MCH MCHC RDW 19.8 H Plt Count Lymph % (Auto) [place] % (Auto) Eos % (Auto) Lymph # [place] # Eos # Seg Neutrophils % Seg Neuts % (Manual) Lymphocytes % (Manual) Monocytes % (Manual) 10.0 H Eosinophils % (Manual) Nucleated RBC % Seg Neutrophils # Seg Neutrophils # Man 8.7 H Lymphocytes # (Manual) Monocytes # (Manual) 1.3 H Eosinophils # (Manual) PT INR APTT Fibrinogen POC ABG pH ABG pH POC ABG pCO2 POC ABG pO2 ABG pO2 ABG HCO3 27.7 H ABG O2 Saturation ABG Base Excess 3.3 H ABG Hemoglobin 8.5 L Oxyhemoglobin 94.9 L Sodium Potassium Chloride Carbon Dioxide BUN 66 H Creatinine Glucose 103 H POC Glucose Uric Acid Calcium Phosphorus Magnesium Iron TIBC AST ALT Total Creatine Kinase CK-MB (CK-2) Troponin T NT-Pro-B Natriuret Pep Total Protein Albumin Triglycerides HDL Cholesterol Folate Urine WBC (Auto) Urine Creatinine Urine Total Protein Vancomycin Trough 06/22/19 06/22/19 06/23/19 17:43 23:25 02:00 WBC RBC Hgb Hct MCV MCH MCHC RDW Plt Count Lymph % (Auto) [place] % (Auto) Eos % (Auto) Lymph # [facility] # Eos # Seg Neutrophils % Seg Neuts % (Manual) Lymphocytes % (Manual) Monocytes % (Manual) Eosinophils % (Manual) Nucleated RBC % Seg Neutrophils # Seg Neutrophils # Man Lymphocytes # (Manual) Monocytes # (Manual) Eosinophils # (Manual) PT INR APTT Fibrinogen POC ABG pH ABG pH 7.469 H POC ABG pCO2 POC ABG pO2 ABG pO2 58.7 L ABG HCO3 28.0 H ABG O2 Saturation 94.6 L ABG Base Excess 4.0 H ABG Hemoglobin 7.1 L Oxyhemoglobin 92.2 L Sodium Potassium Chloride Carbon Dioxide BUN Creatinine Glucose POC Glucose 143 H 106 H Uric Acid Calcium Phosphorus Magnesium Iron TIBC AST ALT Total Creatine Kinase CK-MB (CK-2) Troponin T NT-Pro-B Natriuret Pep Total Protein Albumin Triglycerides HDL Cholesterol Folate Urine WBC (Auto) Urine Creatinine Urine Total Protein Vancomycin Trough 06/23/19 06/23/19 06/23/19 05:24 05:24 11:43 WBC 12.6 H RBC 2.96 L Hgb 8.3 L Hct 25.5 L MCV MCH MCHC RDW 20.2 H Plt Count Lymph % (Auto) [place] % (Auto) Eos % (Auto) Lymph # [facility] # Eos # Seg Neutrophils % Seg Neuts % (Manual) Lymphocytes % (Manual) 12.0 L Monocytes % (Manual) 11.0 H Eosinophils % (Manual) 6.0 H Nucleated RBC % Seg Neutrophils # Seg Neutrophils # Man 8.8 H Lymphocytes # (Manual) Monocytes # (Manual) 1.4 H Eosinophils # (Manual) 0.8 H PT INR APTT Fibrinogen POC ABG pH ABG pH POC ABG pCO2 POC ABG pO2 ABG pO2 ABG HCO3 ABG O2 Saturation ABG Base Excess ABG Hemoglobin Oxyhemoglobin Sodium 146 H Potassium 3.5 L Chloride Carbon Dioxide BUN 48 H Creatinine Glucose 123 H POC Glucose 120 H Uric Acid Calcium Phosphorus Magnesium Iron TIBC AST ALT Total Creatine Kinase CK-MB (CK-2) Troponin T NT-Pro-B Natriuret Pep Total Protein Albumin Triglycerides HDL Cholesterol Folate Urine WBC (Auto) Urine Creatinine Urine Total Protein Vancomycin Trough 06/23/19 06/24/19 06/24/19 17:39 06:53 06:53 WBC 12.3 H RBC 2.87 L Hgb 8.0 L Hct 24.9 L MCV MCH MCHC RDW 20.5 H Plt Count Lymph % (Auto) [place] % (Auto) 8.8 H Eos % (Auto) 4.4 H Lymph # [facility] # 1.1 H Eos # 0.5 H Seg Neutrophils % Seg Neuts % (Manual) Lymphocytes % (Manual) Monocytes % (Manual) Eosinophils % (Manual) Nucleated RBC % Seg Neutrophils # Seg Neutrophils # Man Lymphocytes # (Manual) Monocytes # (Manual) Eosinophils # (Manual) PT INR APTT Fibrinogen POC ABG pH ABG pH POC ABG pCO2 POC ABG pO2 ABG pO2 ABG HCO3 ABG O2 Saturation ABG Base Excess ABG Hemoglobin Oxyhemoglobin Sodium Potassium Chloride 107.1 H Carbon Dioxide 21 L BUN 29 H Creatinine 0.6 L Glucose 117 H POC Glucose 111 H Uric Acid Calcium Phosphorus Magnesium 1.60 L Iron TIBC AST ALT Total Creatine Kinase CK-MB (CK-2) Troponin T NT-Pro-B Natriuret Pep Total Protein Albumin Triglycerides HDL Cholesterol Folate Urine WBC (Auto) Urine Creatinine Urine Total Protein Vancomycin Trough 06/24/19 06/24/19 06/24/19 12:12 18:01 23:20 WBC RBC Hgb Hct MCV MCH MCHC RDW Plt Count Lymph % (Auto) [place] % (Auto) Eos % (Auto) Lymph # [facility] # Eos # Seg Neutrophils % Seg Neuts % (Manual) Lymphocytes % (Manual) Monocytes % (Manual) Eosinophils % (Manual) Nucleated RBC % Seg Neutrophils # Seg Neutrophils # Man Lymphocytes # (Manual) Monocytes # (Manual) Eosinophils # (Manual) PT INR APTT Fibrinogen POC ABG pH ABG pH POC ABG pCO2 POC ABG pO2 ABG pO2 ABG HCO3 ABG O2 Saturation ABG Base Excess ABG Hemoglobin Oxyhemoglobin Sodium Potassium Chloride Carbon Dioxide BUN Creatinine Glucose POC Glucose 158 H 133 H 106 H Uric Acid Calcium Phosphorus Magnesium Iron TIBC AST ALT Total Creatine Kinase CK-MB (CK-2) Troponin T NT-Pro-B Natriuret Pep Total Protein Albumin Triglycerides HDL Cholesterol Folate Urine WBC (Auto) Urine Creatinine Urine Total Protein Vancomycin Trough 06/25/19 06/25/19 06/25/19 04:46 04:46 05:36 WBC 12.3 H RBC 2.98 L Hgb 8.3 L Hct 26.4 L MCV MCH MCHC 31 L RDW 20.1 H Plt Count Lymph % (Auto) [place] % (Auto) Eos % (Auto) Lymph # [place] # Eos # Seg Neutrophils % Seg Neuts % (Manual) Lymphocytes % (Manual) Monocytes % (Manual) 10.0 H Eosinophils % (Manual) Nucleated RBC % Seg Neutrophils # Seg Neutrophils # Man 8.1 H Lymphocytes # (Manual) Monocytes # (Manual) 1.2 H Eosinophils # (Manual) PT INR APTT Fibrinogen POC ABG pH ABG pH POC ABG pCO2 POC ABG pO2 ABG pO2 ABG HCO3 ABG O2 Saturation ABG Base Excess ABG Hemoglobin Oxyhemoglobin Sodium 148 H Potassium Chloride 108.0 H Carbon Dioxide BUN 21 H Creatinine 0.7 L Glucose 120 H POC Glucose 121 H Uric Acid Calcium Phosphorus Magnesium Iron TIBC AST ALT Total Creatine Kinase CK-MB (CK-2) Troponin T NT-Pro-B Natriuret Pep Total Protein Albumin Triglycerides HDL Cholesterol Folate Urine WBC (Auto) Urine Creatinine Urine Total Protein Vancomycin Trough 06/25/19 06/25/19 06/26/19 14:02 18:30 00:01 WBC RBC Hgb Hct MCV MCH MCHC RDW Plt Count Lymph % (Auto) [place] % (Auto) Eos % (Auto) Lymph # [place] # Eos # Seg Neutrophils % Seg Neuts % (Manual) Lymphocytes % (Manual) Monocytes % (Manual) Eosinophils % (Manual) Nucleated RBC % Seg Neutrophils # Seg Neutrophils # Man Lymphocytes # (Manual) Monocytes # (Manual) Eosinophils # (Manual) PT INR APTT Fibrinogen POC ABG pH ABG pH POC ABG pCO2 POC ABG pO2 ABG pO2 ABG HCO3 ABG O2 Saturation ABG Base Excess ABG Hemoglobin Oxyhemoglobin Sodium Potassium Chloride Carbon Dioxide BUN Creatinine Glucose POC Glucose 125 H 145 H 142 H Uric Acid Calcium Phosphorus Magnesium Iron TIBC AST ALT Total Creatine Kinase CK-MB (CK-2) Troponin T NT-Pro-B Natriuret Pep Total Protein Albumin Triglycerides HDL Cholesterol Folate Urine WBC (Auto) Urine Creatinine Urine Total Protein Vancomycin Trough 06/26/19 06/26/19 06/26/19 04:43 04:43 05:41 WBC RBC 3.02 L Hgb 8.6 L Hct 27.0 L MCV MCH MCHC RDW 20.4 H Plt Count Lymph % (Auto) [place] % (Auto) Eos % (Auto) Lymph # [place] # Eos # Seg Neutrophils % Seg Neuts % (Manual) Lymphocytes % (Manual) Monocytes % (Manual) 9.0 H Eosinophils % (Manual) Nucleated RBC % Seg Neutrophils # Seg Neutrophils # Man Lymphocytes # (Manual) Monocytes # (Manual) 1.0 H Eosinophils # (Manual) PT INR APTT Fibrinogen POC ABG pH ABG pH POC ABG pCO2 POC ABG pO2 ABG pO2 ABG HCO3 ABG O2 Saturation ABG Base Excess ABG Hemoglobin Oxyhemoglobin Sodium Potassium Chloride Carbon Dioxide BUN Creatinine 0.7 L Glucose 111 H POC Glucose 110 H Uric Acid Calcium Phosphorus Magnesium 1.60 L Iron TIBC AST ALT Total Creatine Kinase CK-MB (CK-2) Troponin T NT-Pro-B Natriuret Pep Total Protein Albumin Triglycerides HDL Cholesterol Folate Urine WBC (Auto) Urine Creatinine Urine Total Protein Vancomycin Trough 06/26/19 06/26/19 06/27/19 11:55 18:07 12:10 WBC RBC Hgb Hct MCV MCH MCHC RDW Plt Count Lymph % (Auto) [place] % (Auto) Eos % (Auto) Lymph # [place] # Eos # Seg Neutrophils % Seg Neuts % (Manual) Lymphocytes % (Manual) Monocytes % (Manual) Eosinophils % (Manual) Nucleated RBC % Seg Neutrophils # Seg Neutrophils # Man Lymphocytes # (Manual) Monocytes # (Manual) Eosinophils # (Manual) PT INR APTT Fibrinogen POC ABG pH ABG pH POC ABG pCO2 POC ABG pO2 ABG pO2 ABG HCO3 ABG O2 Saturation ABG Base Excess ABG Hemoglobin Oxyhemoglobin Sodium Potassium Chloride Carbon Dioxide BUN Creatinine Glucose POC Glucose 159 H 107 H 121 H Uric Acid Calcium Phosphorus Magnesium Iron TIBC AST ALT Total Creatine Kinase CK-MB (CK-2) Troponin T NT-Pro-B Natriuret Pep Total Protein Albumin Triglycerides HDL Cholesterol Folate Urine WBC (Auto) Urine Creatinine Urine Total Protein Vancomycin Trough 06/28/19 06/29/19 06/29/19 05:54 13:10 17:58 WBC RBC Hgb Hct MCV MCH MCHC RDW Plt Count Lymph % (Auto) [place] % (Auto) Eos % (Auto) Lymph # [place] # Eos # Seg Neutrophils % Seg Neuts % (Manual) Lymphocytes % (Manual) Monocytes % (Manual) Eosinophils % (Manual) Nucleated RBC % Seg Neutrophils # Seg Neutrophils # Man Lymphocytes # (Manual) Monocytes # (Manual) Eosinophils # (Manual) PT INR APTT Fibrinogen POC ABG pH ABG pH POC ABG pCO2 POC ABG pO2 ABG pO2 ABG HCO3 ABG O2 Saturation ABG Base Excess ABG Hemoglobin Oxyhemoglobin Sodium Potassium Chloride Carbon Dioxide BUN Creatinine Glucose POC Glucose 107 H 115 H 108 H Uric Acid Calcium Phosphorus Magnesium Iron TIBC AST ALT Total Creatine Kinase CK-MB (CK-2) Troponin T NT-Pro-B Natriuret Pep Total Protein Albumin Triglycerides HDL Cholesterol Folate Urine WBC (Auto) Urine Creatinine Urine Total Protein Vancomycin Trough 06/30/19 06/30/19 07/01/19 12:00 18:13 05:49 WBC RBC Hgb Hct MCV MCH MCHC RDW Plt Count Lymph % (Auto) [place] % (Auto) Eos % (Auto) Lymph # [place] # Eos # Seg Neutrophils % Seg Neuts % (Manual) Lymphocytes % (Manual) Monocytes % (Manual) Eosinophils % (Manual) Nucleated RBC % Seg Neutrophils # Seg Neutrophils # Man Lymphocytes # (Manual) Monocytes # (Manual) Eosinophils # (Manual) PT INR APTT Fibrinogen POC ABG pH ABG pH POC ABG pCO2 POC ABG pO2 ABG pO2 ABG HCO3 ABG O2 Saturation ABG Base Excess ABG Hemoglobin Oxyhemoglobin Sodium Potassium Chloride Carbon Dioxide BUN Creatinine Glucose POC Glucose 108 H 114 H 114 H Uric Acid Calcium Phosphorus Magnesium Iron TIBC AST ALT Total Creatine Kinase CK-MB (CK-2) Troponin T NT-Pro-B Natriuret Pep Total Protein Albumin Triglycerides HDL Cholesterol Folate Urine WBC (Auto) Urine Creatinine Urine Total Protein Vancomycin Trough 07/01/19 07/01/19 07/01/19 07:58 07:58 12:06 WBC 11.5 H RBC 3.24 L Hgb 9.0 L Hct 28.4 L MCV MCH MCHC RDW 20.8 H Plt Count Lymph % (Auto) 8.[address] [place] % (Auto) 10.0 H Eos % (Auto) Lymph # 0.[address] [place] # 1.2 H Eos # Seg Neutrophils % 79.4 H Seg Neuts % (Manual) Lymphocytes % (Manual) Monocytes % (Manual) Eosinophils % (Manual) Nucleated RBC % Seg Neutrophils # 9.1 H Seg Neutrophils # Man Lymphocytes # (Manual) Monocytes # (Manual) Eosinophils # (Manual) PT INR APTT Fibrinogen POC ABG pH ABG pH POC ABG pCO2 POC ABG pO2 ABG pO2 ABG HCO3 ABG O2 Saturation ABG Base Excess ABG Hemoglobin Oxyhemoglobin Sodium Potassium Chloride Carbon Dioxide BUN Creatinine 0.4 L Glucose 130 H POC Glucose 133 H Uric Acid Calcium Phosphorus Magnesium Iron TIBC AST ALT Total Creatine Kinase CK-MB (CK-2) Troponin T NT-Pro-B Natriuret Pep Total Protein Albumin Triglycerides HDL Cholesterol Folate Urine WBC (Auto) Urine Creatinine Urine Total Protein Vancomycin Trough 07/02/19 07/02/19 07/02/19 05:54 13:27 13:39 WBC RBC Hgb Hct MCV MCH MCHC RDW Plt Count Lymph % (Auto) [place] % (Auto) Eos % (Auto) Lymph # [place] # Eos # Seg Neutrophils % Seg Neuts % (Manual) Lymphocytes % (Manual) Monocytes % (Manual) Eosinophils % (Manual) Nucleated RBC % Seg Neutrophils # Seg Neutrophils # Man Lymphocytes # (Manual) Monocytes # (Manual) Eosinophils # (Manual) PT INR APTT Fibrinogen POC ABG pH ABG pH POC ABG pCO2 POC ABG pO2 ABG pO2 ABG HCO3 ABG O2 Saturation ABG Base Excess ABG Hemoglobin Oxyhemoglobin Sodium Potassium Chloride Carbon Dioxide BUN Creatinine Glucose POC Glucose 111 H 123 H 116 H Uric Acid Calcium Phosphorus Magnesium Iron TIBC AST ALT Total Creatine Kinase CK-MB (CK-2) Troponin T NT-Pro-B Natriuret Pep Total Protein Albumin Triglycerides HDL Cholesterol Folate Urine WBC (Auto) Urine Creatinine Urine Total Protein Vancomycin Trough 07/02/19 07/03/19 07/04/19 18:00 06:06 12:15 WBC RBC Hgb Hct MCV MCH MCHC RDW Plt Count Lymph % (Auto) [place] % (Auto) Eos % (Auto) Lymph # [place] # Eos # Seg Neutrophils % Seg Neuts % (Manual) Lymphocytes % (Manual) Monocytes % (Manual) Eosinophils % (Manual) Nucleated RBC % Seg Neutrophils # Seg Neutrophils # Man Lymphocytes # (Manual) Monocytes # (Manual) Eosinophils # (Manual) PT INR APTT Fibrinogen POC ABG pH ABG pH POC ABG pCO2 POC ABG pO2 ABG pO2 ABG HCO3 ABG O2 Saturation ABG Base Excess ABG Hemoglobin Oxyhemoglobin Sodium Potassium Chloride Carbon Dioxide BUN Creatinine Glucose POC Glucose 118 H 127 H 122 H Uric Acid Calcium Phosphorus Magnesium Iron TIBC AST ALT Total Creatine Kinase CK-MB (CK-2) Troponin T NT-Pro-B Natriuret Pep Total Protein Albumin Triglycerides HDL Cholesterol Folate Urine WBC (Auto) Urine Creatinine Urine Total Protein Vancomycin Trough 07/04/19 07/04/19 07/05/19 18:09 23:48 06:30 WBC RBC Hgb Hct MCV MCH MCHC RDW Plt Count Lymph % (Auto) [place] % (Auto) Eos % (Auto) Lymph # [place] # Eos # Seg Neutrophils % Seg Neuts % (Manual) Lymphocytes % (Manual) Monocytes % (Manual) Eosinophils % (Manual) Nucleated RBC % Seg Neutrophils # Seg Neutrophils # Man Lymphocytes # (Manual) Monocytes # (Manual) Eosinophils # (Manual) PT INR APTT Fibrinogen POC ABG pH ABG pH POC ABG pCO2 POC ABG pO2 ABG pO2 ABG HCO3 ABG O2 Saturation ABG Base Excess ABG Hemoglobin Oxyhemoglobin Sodium Potassium Chloride Carbon Dioxide BUN Creatinine Glucose POC Glucose 115 H 110 H 106 H Uric Acid Calcium Phosphorus Magnesium Iron TIBC AST ALT Total Creatine Kinase CK-MB (CK-2) Troponin T NT-Pro-B Natriuret Pep Total Protein Albumin Triglycerides HDL Cholesterol Folate Urine WBC (Auto) Urine Creatinine Urine Total Protein Vancomycin Trough 07/05/19 07/05/19 07/05/19 11:55 18:16 23:38 WBC RBC Hgb Hct MCV MCH MCHC RDW Plt Count Lymph % (Auto) [place] % (Auto) Eos % (Auto) Lymph # [place] # Eos # Seg Neutrophils % Seg Neuts % (Manual) Lymphocytes % (Manual) Monocytes % (Manual) Eosinophils % (Manual) Nucleated RBC % Seg Neutrophils # Seg Neutrophils # Man Lymphocytes # (Manual) Monocytes # (Manual) Eosinophils # (Manual) PT INR APTT Fibrinogen POC ABG pH ABG pH POC ABG pCO2 POC ABG pO2 ABG pO2 ABG HCO3 ABG O2 Saturation ABG Base Excess ABG Hemoglobin Oxyhemoglobin Sodium Potassium Chloride Carbon Dioxide BUN Creatinine Glucose POC Glucose 106 H 120 H 114 H Uric Acid Calcium Phosphorus Magnesium Iron TIBC AST ALT Total Creatine Kinase CK-MB (CK-2) Troponin T NT-Pro-B Natriuret Pep Total Protein Albumin Triglycerides HDL Cholesterol Folate Urine WBC (Auto) Urine Creatinine Urine Total Protein Vancomycin Trough 07/06/19 07/06/19 07/06/19 06:01 12:28 18:49 WBC RBC Hgb Hct MCV MCH MCHC RDW Plt Count Lymph % (Auto) [place] % (Auto) Eos % (Auto) Lymph # [place] # Eos # Seg Neutrophils % Seg Neuts % (Manual) Lymphocytes % (Manual) Monocytes % (Manual) Eosinophils % (Manual) Nucleated RBC % Seg Neutrophils # Seg Neutrophils # Man Lymphocytes # (Manual) Monocytes # (Manual) Eosinophils # (Manual) PT INR APTT Fibrinogen POC ABG pH ABG pH POC ABG pCO2 POC ABG pO2 ABG pO2 ABG HCO3 ABG O2 Saturation ABG Base Excess ABG Hemoglobin Oxyhemoglobin Sodium Potassium Chloride Carbon Dioxide BUN Creatinine Glucose POC Glucose 115 H 114 H 111 H Uric Acid Calcium Phosphorus Magnesium Iron TIBC AST ALT Total Creatine Kinase CK-MB (CK-2) Troponin T NT-Pro-B Natriuret Pep Total Protein Albumin Triglycerides HDL Cholesterol Folate Urine WBC (Auto) Urine Creatinine Urine Total Protein Vancomycin Trough 07/07/19 07/07/19 07/07/19 05:34 11:57 23:54 WBC RBC Hgb Hct MCV MCH MCHC RDW Plt Count Lymph % (Auto) [place] % (Auto) Eos % (Auto) Lymph # [place] # Eos # Seg Neutrophils % Seg Neuts % (Manual) Lymphocytes % (Manual) Monocytes % (Manual) Eosinophils % (Manual) Nucleated RBC % Seg Neutrophils # Seg Neutrophils # Man Lymphocytes # (Manual) Monocytes # (Manual) Eosinophils # (Manual) PT INR APTT Fibrinogen POC ABG pH ABG pH POC ABG pCO2 POC ABG pO2 ABG pO2 ABG HCO3 ABG O2 Saturation ABG Base Excess ABG Hemoglobin Oxyhemoglobin Sodium Potassium Chloride Carbon Dioxide BUN Creatinine Glucose POC Glucose 121 H 135 H 109 H Uric Acid Calcium Phosphorus Magnesium Iron TIBC AST ALT Total Creatine Kinase CK-MB (CK-2) Troponin T NT-Pro-B Natriuret Pep Total Protein Albumin Triglycerides HDL Cholesterol Folate Urine WBC (Auto) Urine Creatinine Urine Total Protein Vancomycin Trough 07/08/19 07/08/19 07/09/19 04:00 04:00 12:13 WBC RBC 3.30 L Hgb 9.3 L Hct 29.0 L MCV MCH MCHC RDW 19.9 H Plt Count Lymph % (Auto) [place] % (Auto) Eos % (Auto) Lymph # [place] # Eos # Seg Neutrophils % Seg Neuts % (Manual) 76.0 H Lymphocytes % (Manual) Monocytes % (Manual) Eosinophils % (Manual) Nucleated RBC % Seg Neutrophils # Seg Neutrophils # Man 8.4 H Lymphocytes # (Manual) Monocytes # (Manual) Eosinophils # (Manual) PT INR APTT Fibrinogen POC ABG pH ABG pH POC ABG pCO2 POC ABG pO2 ABG pO2 ABG HCO3 ABG O2 Saturation ABG Base Excess ABG Hemoglobin Oxyhemoglobin Sodium Potassium Chloride Carbon Dioxide BUN Creatinine 0.5 L Glucose 117 H POC Glucose 111 H Uric Acid Calcium Phosphorus Magnesium Iron TIBC AST ALT Total Creatine Kinase CK-MB (CK-2) Troponin T NT-Pro-B Natriuret Pep Total Protein Albumin Triglycerides HDL Cholesterol Folate Urine WBC (Auto) Urine Creatinine Urine Total Protein Vancomycin Trough 07/10/19 07/10/19 07/10/19 05:28 12:22 17:19 WBC RBC Hgb Hct MCV MCH MCHC RDW Plt Count Lymph % (Auto) [place] % (Auto) Eos % (Auto) Lymph # [facility] # Eos # Seg Neutrophils % Seg Neuts % (Manual) Lymphocytes % (Manual) Monocytes % (Manual) Eosinophils % (Manual) Nucleated RBC % Seg Neutrophils # Seg Neutrophils # Man Lymphocytes # (Manual) Monocytes # (Manual) Eosinophils # (Manual) PT INR APTT Fibrinogen POC ABG pH ABG pH POC ABG pCO2 POC ABG pO2 ABG pO2 ABG HCO3 ABG O2 Saturation ABG Base Excess ABG Hemoglobin Oxyhemoglobin Sodium Potassium Chloride Carbon Dioxide BUN Creatinine Glucose POC Glucose 114 H 113 H 115 H Uric Acid Calcium Phosphorus Magnesium Iron TIBC AST ALT Total Creatine Kinase CK-MB (CK-2) Troponin T NT-Pro-B Natriuret Pep Total Protein Albumin Triglycerides HDL Cholesterol Folate Urine WBC (Auto) Urine Creatinine Urine Total Protein Vancomycin Trough 07/11/19 07/11/19 07/11/19 05:27 06:08 06:08 WBC 12.6 H RBC 3.26 L Hgb 9.2 L Hct 28.6 L MCV MCH MCHC RDW 19.6 H Plt Count Lymph % (Auto) [place] % (Auto) Eos % (Auto) Lymph # [place] # Eos # Seg Neutrophils % Seg Neuts % (Manual) Lymphocytes % (Manual) Monocytes % (Manual) Eosinophils % (Manual) Nucleated RBC % Seg Neutrophils # Seg Neutrophils # Man Lymphocytes # (Manual) Monocytes # (Manual) Eosinophils # (Manual) PT INR APTT Fibrinogen POC ABG pH ABG pH POC ABG pCO2 POC ABG pO2 ABG pO2 ABG HCO3 ABG O2 Saturation ABG Base Excess ABG Hemoglobin Oxyhemoglobin Sodium Potassium Chloride Carbon Dioxide 17 L D BUN Creatinine Glucose 117 H POC Glucose 114 H Uric Acid Calcium Phosphorus Magnesium Iron TIBC AST ALT Total Creatine Kinase CK-MB (CK-2) Troponin T NT-Pro-B Natriuret Pep Total Protein Albumin Triglycerides HDL Cholesterol Folate Urine WBC (Auto) Urine Creatinine Urine Total Protein Vancomycin Trough 07/12/19 07/13/19 07/13/19 18:33 03:55 03:55 WBC 11.4 H RBC 3.18 L Hgb 8.8 L Hct 27.4 L MCV MCH MCHC RDW 19.1 H Plt Count Lymph % (Auto) [place] % (Auto) Eos % (Auto) Lymph # [facility] # Eos # Seg Neutrophils % Seg Neuts % (Manual) Lymphocytes % (Manual) Monocytes % (Manual) Eosinophils % (Manual) Nucleated RBC % Seg Neutrophils # Seg Neutrophils # Man Lymphocytes # (Manual) Monocytes # (Manual) Eosinophils # (Manual) PT INR APTT Fibrinogen POC ABG pH ABG pH POC ABG pCO2 POC ABG pO2 ABG pO2 ABG HCO3 ABG O2 Saturation ABG Base Excess ABG Hemoglobin Oxyhemoglobin Sodium Potassium Chloride 97.4 L Carbon Dioxide BUN Creatinine 0.5 L Glucose 121 H POC Glucose 106 H Uric Acid Calcium Phosphorus Magnesium Iron TIBC AST ALT Total Creatine Kinase CK-MB (CK-2) Troponin T NT-Pro-B Natriuret Pep Total Protein Albumin Triglycerides HDL Cholesterol Folate Urine WBC (Auto) Urine Creatinine Urine Total Protein Vancomycin Trough 07/13/19 07/13/19 07/14/19 05:08 11:52 11:50 WBC RBC Hgb Hct MCV MCH MCHC RDW Plt Count Lymph % (Auto) [place] % (Auto) Eos % (Auto) Lymph # [place] # Eos # Seg Neutrophils % Seg Neuts % (Manual) Lymphocytes % (Manual) Monocytes % (Manual) Eosinophils % (Manual) Nucleated RBC % Seg Neutrophils # Seg Neutrophils # Man Lymphocytes # (Manual) Monocytes # (Manual) Eosinophils # (Manual) PT INR APTT Fibrinogen POC ABG pH ABG pH POC ABG pCO2 POC ABG pO2 ABG pO2 ABG HCO3 ABG O2 Saturation ABG Base Excess ABG Hemoglobin Oxyhemoglobin Sodium Potassium Chloride Carbon Dioxide BUN Creatinine Glucose POC Glucose 107 H 120 H 125 H Uric Acid Calcium Phosphorus Magnesium Iron TIBC AST ALT Total Creatine Kinase CK-MB (CK-2) Troponin T NT-Pro-B Natriuret Pep Total Protein Albumin Triglycerides HDL Cholesterol Folate Urine WBC (Auto) Urine Creatinine Urine Total Protein Vancomycin Trough 07/14/19 07/15/19 07/15/19 15:52 00:21 05:50 WBC RBC Hgb Hct MCV MCH MCHC RDW Plt Count Lymph % (Auto) [place] % (Auto) Eos % (Auto) Lymph # [place] # Eos # Seg Neutrophils % Seg Neuts % (Manual) Lymphocytes % (Manual) Monocytes % (Manual) Eosinophils % (Manual) Nucleated RBC % Seg Neutrophils # Seg Neutrophils # Man Lymphocytes # (Manual) Monocytes # (Manual) Eosinophils # (Manual) PT INR APTT Fibrinogen POC ABG pH ABG pH POC ABG pCO2 POC ABG pO2 ABG pO2 ABG HCO3 ABG O2 Saturation ABG Base Excess ABG Hemoglobin Oxyhemoglobin Sodium Potassium Chloride Carbon Dioxide BUN Creatinine Glucose POC Glucose 118 H 108 H 123 H Uric Acid Calcium Phosphorus Magnesium Iron TIBC AST ALT Total Creatine Kinase CK-MB (CK-2) Troponin T NT-Pro-B Natriuret Pep Total Protein Albumin Triglycerides HDL Cholesterol Folate Urine WBC (Auto) Urine Creatinine Urine Total Protein Vancomycin Trough 07/15/19 07/15/19 07/15/19 11:38 16:33 17:36 WBC RBC Hgb Hct MCV MCH MCHC RDW Plt Count Lymph % (Auto) [place] % (Auto) Eos % (Auto) Lymph # [facility] # Eos # Seg Neutrophils % Seg Neuts % (Manual) Lymphocytes % (Manual) Monocytes % (Manual) Eosinophils % (Manual) Nucleated RBC % Seg Neutrophils # Seg Neutrophils # Man Lymphocytes # (Manual) Monocytes # (Manual) Eosinophils # (Manual) PT INR APTT Fibrinogen POC ABG pH ABG pH POC ABG pCO2 POC ABG pO2 ABG pO2 ABG HCO3 ABG O2 Saturation ABG Base Excess ABG Hemoglobin Oxyhemoglobin Sodium Potassium Chloride Carbon Dioxide BUN Creatinine Glucose POC Glucose 114 H 115 H 132 H Uric Acid Calcium Phosphorus Magnesium Iron TIBC AST ALT Total Creatine Kinase CK-MB (CK-2) Troponin T NT-Pro-B Natriuret Pep Total Protein Albumin Triglycerides HDL Cholesterol Folate Urine WBC (Auto) Urine Creatinine Urine Total Protein Vancomycin Trough 07/16/19 07/16/19 07/17/19 12:33 18:57 11:53 WBC RBC Hgb Hct MCV MCH MCHC RDW Plt Count Lymph % (Auto) [place] % (Auto) Eos % (Auto) Lymph # [facility] # Eos # Seg Neutrophils % Seg Neuts % (Manual) Lymphocytes % (Manual) Monocytes % (Manual) Eosinophils % (Manual) Nucleated RBC % Seg Neutrophils # Seg Neutrophils # Man Lymphocytes # (Manual) Monocytes # (Manual) Eosinophils # (Manual) PT INR APTT Fibrinogen POC ABG pH ABG pH POC ABG pCO2 POC ABG pO2 ABG pO2 ABG HCO3 ABG O2 Saturation ABG Base Excess ABG Hemoglobin Oxyhemoglobin Sodium Potassium Chloride Carbon Dioxide BUN Creatinine Glucose POC Glucose 113 H 65 L 113 H Uric Acid Calcium Phosphorus Magnesium Iron TIBC AST ALT Total Creatine Kinase CK-MB (CK-2) Troponin T NT-Pro-B Natriuret Pep Total Protein Albumin Triglycerides HDL Cholesterol Folate Urine WBC (Auto) Urine Creatinine Urine Total Protein Vancomycin Trough 07/17/19 07/18/19 07/18/19 17:42 06:24 17:03 WBC RBC Hgb Hct MCV MCH MCHC RDW Plt Count Lymph % (Auto) [place] % (Auto) Eos % (Auto) Lymph # [facility] # Eos # Seg Neutrophils % Seg Neuts % (Manual) Lymphocytes % (Manual) Monocytes % (Manual) Eosinophils % (Manual) Nucleated RBC % Seg Neutrophils # Seg Neutrophils # Man Lymphocytes # (Manual) Monocytes # (Manual) Eosinophils # (Manual) PT INR APTT Fibrinogen POC ABG pH ABG pH POC ABG pCO2 POC ABG pO2 ABG pO2 ABG HCO3 ABG O2 Saturation ABG Base Excess ABG Hemoglobin Oxyhemoglobin Sodium Potassium Chloride Carbon Dioxide BUN Creatinine Glucose POC Glucose 111 H 107 H 117 H Uric Acid Calcium Phosphorus Magnesium Iron TIBC AST ALT Total Creatine Kinase CK-MB (CK-2) Troponin T NT-Pro-B Natriuret Pep Total Protein Albumin Triglycerides HDL Cholesterol Folate Urine WBC (Auto) Urine Creatinine Urine Total Protein Vancomycin Trough 07/19/19 07/20/19 07/20/19 12:24 04:33 04:33 WBC 12.3 H RBC Hgb 11.0 L Hct 33.9 L MCV MCH MCHC RDW 19.6 H Plt Count Lymph % (Auto) [place] % (Auto) Eos % (Auto) Lymph # [place] # Eos # Seg Neutrophils % 70.8 H Seg Neuts % (Manual) Lymphocytes % (Manual) Monocytes % (Manual) Eosinophils % (Manual) Nucleated RBC % Seg Neutrophils # 8.7 H Seg Neutrophils # Man Lymphocytes # (Manual) Monocytes # (Manual) Eosinophils # (Manual) PT INR APTT Fibrinogen POC ABG pH ABG pH POC ABG pCO2 POC ABG pO2 ABG pO2 ABG HCO3 ABG O2 Saturation ABG Base Excess ABG Hemoglobin Oxyhemoglobin Sodium Potassium Chloride Carbon Dioxide 20 L BUN Creatinine 0.5 L Glucose 116 H POC Glucose 110 H Uric Acid Calcium Phosphorus Magnesium Iron TIBC AST ALT Total Creatine Kinase CK-MB (CK-2) Troponin T NT-Pro-B Natriuret Pep Total Protein Albumin Triglycerides HDL Cholesterol Folate Urine WBC (Auto) Urine Creatinine Urine Total Protein Vancomycin Trough 07/20/19 07/20/19 07/21/19 12:17 23:49 05:34 WBC RBC Hgb Hct MCV MCH MCHC RDW Plt Count Lymph % (Auto) [place] % (Auto) Eos % (Auto) Lymph # [facility] # Eos # Seg Neutrophils % Seg Neuts % (Manual) Lymphocytes % (Manual) Monocytes % (Manual) Eosinophils % (Manual) Nucleated RBC % Seg Neutrophils # Seg Neutrophils # Man Lymphocytes # (Manual) Monocytes # (Manual) Eosinophils # (Manual) PT INR APTT Fibrinogen POC ABG pH ABG pH POC ABG pCO2 POC ABG pO2 ABG pO2 ABG HCO3 ABG O2 Saturation ABG Base Excess ABG Hemoglobin Oxyhemoglobin Sodium Potassium Chloride Carbon Dioxide BUN Creatinine Glucose POC Glucose 117 H 108 H 116 H Uric Acid Calcium Phosphorus Magnesium Iron TIBC AST ALT Total Creatine Kinase CK-MB (CK-2) Troponin T NT-Pro-B Natriuret Pep Total Protein Albumin Triglycerides HDL Cholesterol Folate Urine WBC (Auto) Urine Creatinine Urine Total Protein Vancomycin Trough 07/23/19 07/23/19 07/23/19 05:28 05:28 06:25 WBC RBC 3.41 L Hgb 9.6 L Hct 29.7 L MCV MCH MCHC RDW 19.1 H Plt Count Lymph % (Auto) [place] % (Auto) Eos % (Auto) Lymph # [facility] # Eos # Seg Neutrophils % Seg Neuts % (Manual) Lymphocytes % (Manual) Monocytes % (Manual) Eosinophils % (Manual) Nucleated RBC % Seg Neutrophils # Seg Neutrophils # Man Lymphocytes # (Manual) Monocytes # (Manual) Eosinophils # (Manual) PT INR APTT Fibrinogen POC ABG pH ABG pH POC ABG pCO2 POC ABG pO2 ABG pO2 ABG HCO3 ABG O2 Saturation ABG Base Excess ABG Hemoglobin Oxyhemoglobin Sodium Potassium Chloride Carbon Dioxide BUN 8 L Creatinine 0.5 L Glucose POC Glucose 135 H Uric Acid Calcium Phosphorus Magnesium Iron TIBC AST ALT Total Creatine Kinase CK-MB (CK-2) Troponin T NT-Pro-B Natriuret Pep Total Protein Albumin Triglycerides HDL Cholesterol Folate Urine WBC (Auto) Urine Creatinine Urine Total Protein Vancomycin Trough 07/23/19 07/23/19 07/24/19 14:26 16:25 00:45 WBC RBC Hgb Hct MCV MCH MCHC RDW Plt Count Lymph % (Auto) [place] % (Auto) Eos % (Auto) Lymph # [facility] # Eos # Seg Neutrophils % Seg Neuts % (Manual) Lymphocytes % (Manual) Monocytes % (Manual) Eosinophils % (Manual) Nucleated RBC % Seg Neutrophils # Seg Neutrophils # Man Lymphocytes # (Manual) Monocytes # (Manual) Eosinophils # (Manual) PT INR APTT Fibrinogen POC ABG pH ABG pH POC ABG pCO2 POC ABG pO2 ABG pO2 ABG HCO3 ABG O2 Saturation ABG Base Excess ABG Hemoglobin Oxyhemoglobin Sodium Potassium Chloride Carbon Dioxide BUN Creatinine Glucose POC Glucose 121 H 115 H 125 H Uric Acid Calcium Phosphorus Magnesium Iron TIBC AST ALT Total Creatine Kinase CK-MB (CK-2) Troponin T NT-Pro-B Natriuret Pep Total Protein Albumin Triglycerides HDL Cholesterol Folate Urine WBC (Auto) Urine Creatinine Urine Total Protein Vancomycin Trough 07/24/19 07/25/19 07/25/19 11:33 08:32 11:54 WBC RBC Hgb Hct MCV MCH MCHC RDW Plt Count Lymph % (Auto) [place] % (Auto) Eos % (Auto) Lymph # [place] # Eos # Seg Neutrophils % Seg Neuts % (Manual) Lymphocytes % (Manual) Monocytes % (Manual) Eosinophils % (Manual) Nucleated RBC % Seg Neutrophils # Seg Neutrophils # Man Lymphocytes # (Manual) Monocytes # (Manual) Eosinophils # (Manual) PT INR APTT Fibrinogen POC ABG pH ABG pH POC ABG pCO2 POC ABG pO2 ABG pO2 ABG HCO3 ABG O2 Saturation ABG Base Excess ABG Hemoglobin Oxyhemoglobin Sodium Potassium Chloride Carbon Dioxide BUN Creatinine Glucose POC Glucose 130 H 110 H 136 H Uric Acid Calcium Phosphorus Magnesium Iron TIBC AST ALT Total Creatine Kinase CK-MB (CK-2) Troponin T NT-Pro-B Natriuret Pep Total Protein Albumin Triglycerides HDL Cholesterol Folate Urine WBC (Auto) Urine Creatinine Urine Total Protein Vancomycin Trough 07/25/19 07/26/19 07/26/19 18:10 05:53 12:17 WBC RBC Hgb Hct MCV MCH MCHC RDW Plt Count Lymph % (Auto) [place] % (Auto) Eos % (Auto) Lymph # [place] # Eos # Seg Neutrophils % Seg Neuts % (Manual) Lymphocytes % (Manual) Monocytes % (Manual) Eosinophils % (Manual) Nucleated RBC % Seg Neutrophils # Seg Neutrophils # Man Lymphocytes # (Manual) Monocytes # (Manual) Eosinophils # (Manual) PT INR APTT Fibrinogen POC ABG pH ABG pH POC ABG pCO2 POC ABG pO2 ABG pO2 ABG HCO3 ABG O2 Saturation ABG Base Excess ABG Hemoglobin Oxyhemoglobin Sodium Potassium Chloride Carbon Dioxide BUN Creatinine Glucose POC Glucose 117 H 107 H 140 H Uric Acid Calcium Phosphorus Magnesium Iron TIBC AST ALT Total Creatine Kinase CK-MB (CK-2) Troponin T NT-Pro-B Natriuret Pep Total Protein Albumin Triglycerides HDL Cholesterol Folate Urine WBC (Auto) Urine Creatinine Urine Total Protein Vancomycin Trough 07/26/19 07/27/19 07/27/19 16:59 00:33 08:00 WBC 12.0 H RBC 3.35 L Hgb 9.4 L Hct 29.3 L MCV MCH MCHC RDW 18.2 H Plt Count Lymph % (Auto) [place] % (Auto) Eos % (Auto) Lymph # [place] # Eos # Seg Neutrophils % Seg Neuts % (Manual) Lymphocytes % (Manual) Monocytes % (Manual) Eosinophils % (Manual) Nucleated RBC % Seg Neutrophils # Seg Neutrophils # Man Lymphocytes # (Manual) Monocytes # (Manual) Eosinophils # (Manual) PT INR APTT Fibrinogen POC ABG pH ABG pH POC ABG pCO2 POC ABG pO2 ABG pO2 ABG HCO3 ABG O2 Saturation ABG Base Excess ABG Hemoglobin Oxyhemoglobin Sodium Potassium Chloride Carbon Dioxide BUN Creatinine Glucose POC Glucose 129 H 110 H Uric Acid Calcium Phosphorus Magnesium Iron TIBC AST ALT Total Creatine Kinase CK-MB (CK-2) Troponin T NT-Pro-B Natriuret Pep Total Protein Albumin Triglycerides HDL Cholesterol Folate Urine WBC (Auto) Urine Creatinine Urine Total Protein Vancomycin Trough 07/27/19 07/27/19 07/28/19 08:00 16:38 12:06 WBC RBC Hgb Hct MCV MCH MCHC RDW Plt Count Lymph % (Auto) [place] % (Auto) Eos % (Auto) Lymph # [place] # Eos # Seg Neutrophils % Seg Neuts % (Manual) Lymphocytes % (Manual) Monocytes % (Manual) Eosinophils % (Manual) Nucleated RBC % Seg Neutrophils # Seg Neutrophils # Man Lymphocytes # (Manual) Monocytes # (Manual) Eosinophils # (Manual) PT INR APTT Fibrinogen POC ABG pH ABG pH POC ABG pCO2 POC ABG pO2 ABG pO2 ABG HCO3 ABG O2 Saturation ABG Base Excess ABG Hemoglobin Oxyhemoglobin Sodium Potassium Chloride 97.7 L Carbon Dioxide BUN Creatinine 0.5 L Glucose 117 H POC Glucose 116 H 122 H Uric Acid Calcium Phosphorus Magnesium Iron TIBC AST ALT Total Creatine Kinase CK-MB (CK-2) Troponin T NT-Pro-B Natriuret Pep Total Protein Albumin Triglycerides HDL Cholesterol Folate Urine WBC (Auto) Urine Creatinine Urine Total Protein Vancomycin Trough 07/28/19 07/29/19 07/29/19 17:10 00:17 06:46 WBC RBC Hgb Hct MCV MCH MCHC RDW Plt Count Lymph % (Auto) [place] % (Auto) Eos % (Auto) Lymph # [place] # Eos # Seg Neutrophils % Seg Neuts % (Manual) Lymphocytes % (Manual) Monocytes % (Manual) Eosinophils % (Manual) Nucleated RBC % Seg Neutrophils # Seg Neutrophils # Man Lymphocytes # (Manual) Monocytes # (Manual) Eosinophils # (Manual) PT INR APTT Fibrinogen POC ABG pH ABG pH POC ABG pCO2 POC ABG pO2 ABG pO2 ABG HCO3 ABG O2 Saturation ABG Base Excess ABG Hemoglobin Oxyhemoglobin Sodium Potassium Chloride Carbon Dioxide BUN Creatinine Glucose POC Glucose 109 H 110 H 112 H Uric Acid Calcium Phosphorus Magnesium Iron TIBC AST ALT Total Creatine Kinase CK-MB (CK-2) Troponin T NT-Pro-B Natriuret Pep Total Protein Albumin Triglycerides HDL Cholesterol Folate Urine WBC (Auto) Urine Creatinine Urine Total Protein Vancomycin Trough 07/29/19 07/29/19 07/29/19 08:50 18:15 23:47 WBC RBC Hgb Hct MCV MCH MCHC RDW Plt Count Lymph % (Auto) [place] % (Auto) Eos % (Auto) Lymph # [place] # Eos # Seg Neutrophils % Seg Neuts % (Manual) Lymphocytes % (Manual) Monocytes % (Manual) Eosinophils % (Manual) Nucleated RBC % Seg Neutrophils # Seg Neutrophils # Man Lymphocytes # (Manual) Monocytes # (Manual) Eosinophils # (Manual) PT INR APTT Fibrinogen POC ABG pH ABG pH POC ABG pCO2 POC ABG pO2 ABG pO2 ABG HCO3 ABG O2 Saturation ABG Base Excess ABG Hemoglobin Oxyhemoglobin Sodium Potassium Chloride Carbon Dioxide BUN Creatinine Glucose POC Glucose 111 H 131 H 123 H Uric Acid Calcium Phosphorus Magnesium Iron TIBC AST ALT Total Creatine Kinase CK-MB (CK-2) Troponin T NT-Pro-B Natriuret Pep Total Protein Albumin Triglycerides HDL Cholesterol Folate Urine WBC (Auto) Urine Creatinine Urine Total Protein Vancomycin Trough 07/30/19 07/30/19 07/30/19 05:48 15:50 23:46 WBC RBC Hgb Hct MCV MCH MCHC RDW Plt Count Lymph % (Auto) [place] % (Auto) Eos % (Auto) Lymph # [place] # Eos # Seg Neutrophils % Seg Neuts % (Manual) Lymphocytes % (Manual) Monocytes % (Manual) Eosinophils % (Manual) Nucleated RBC % Seg Neutrophils # Seg Neutrophils # Man Lymphocytes # (Manual) Monocytes # (Manual) Eosinophils # (Manual) PT INR APTT Fibrinogen POC ABG pH ABG pH POC ABG pCO2 POC ABG pO2 ABG pO2 ABG HCO3 ABG O2 Saturation ABG Base Excess ABG Hemoglobin Oxyhemoglobin Sodium Potassium Chloride Carbon Dioxide BUN Creatinine Glucose POC Glucose 107 H 109 H 109 H Uric Acid Calcium Phosphorus Magnesium Iron TIBC AST ALT Total Creatine Kinase CK-MB (CK-2) Troponin T NT-Pro-B Natriuret Pep Total Protein Albumin Triglycerides HDL Cholesterol Folate Urine WBC (Auto) Urine Creatinine Urine Total Protein Vancomycin Trough 07/31/19 07/31/19 08/01/19 05:53 11:41 00:00 WBC RBC Hgb Hct MCV MCH MCHC RDW Plt Count Lymph % (Auto) [place] % (Auto) Eos % (Auto) Lymph # [place] # Eos # Seg Neutrophils % Seg Neuts % (Manual) Lymphocytes % (Manual) Monocytes % (Manual) Eosinophils % (Manual) Nucleated RBC % Seg Neutrophils # Seg Neutrophils # Man Lymphocytes # (Manual) Monocytes # (Manual) Eosinophils # (Manual) PT INR APTT Fibrinogen POC ABG pH ABG pH POC ABG pCO2 POC ABG pO2 ABG pO2 ABG HCO3 ABG O2 Saturation ABG Base Excess ABG Hemoglobin Oxyhemoglobin Sodium Potassium Chloride Carbon Dioxide BUN Creatinine Glucose POC Glucose 115 H 106 H 117 H Uric Acid Calcium Phosphorus Magnesium Iron TIBC AST ALT Total Creatine Kinase CK-MB (CK-2) Troponin T NT-Pro-B Natriuret Pep Total Protein Albumin Triglycerides HDL Cholesterol Folate Urine WBC (Auto) Urine Creatinine Urine Total Protein Vancomycin Trough 08/01/19 08/01/19 08/01/19 12:31 17:14 22:20 WBC RBC Hgb Hct MCV MCH MCHC RDW Plt Count Lymph % (Auto) [place] % (Auto) Eos % (Auto) Lymph # [place] # Eos # Seg Neutrophils % Seg Neuts % (Manual) Lymphocytes % (Manual) Monocytes % (Manual) Eosinophils % (Manual) Nucleated RBC % Seg Neutrophils # Seg Neutrophils # Man Lymphocytes # (Manual) Monocytes # (Manual) Eosinophils # (Manual) PT INR APTT Fibrinogen POC ABG pH ABG pH POC ABG pCO2 POC ABG pO2 ABG pO2 ABG HCO3 ABG O2 Saturation ABG Base Excess ABG Hemoglobin Oxyhemoglobin Sodium Potassium Chloride Carbon Dioxide BUN Creatinine Glucose POC Glucose 120 H 123 H 112 H Uric Acid Calcium Phosphorus Magnesium Iron TIBC AST ALT Total Creatine Kinase CK-MB (CK-2) Troponin T NT-Pro-B Natriuret Pep Total Protein Albumin Triglycerides HDL Cholesterol Folate Urine WBC (Auto) Urine Creatinine Urine Total Protein Vancomycin Trough
[2019-08-02] MEDS: FAMOTIDINE 20 MG TAB PO SCH ×2 (09:21→21:46)
[2019-08-02] MEDS: FERROUS SULFATE 308 MG (62mg Elemental Iron) / 7 ML ELIXIR PO SCH (09:21)
[2019-08-02] MEDS: amLODIPine 10 MG TAB PO SCH (09:22)
[2019-08-02] MEDS: hydroCHLOROthiazide 25 MG TAB PO SCH (09:22)
[2019-08-02] MEDS: APIXABAN 2.5 MG TAB PO SCH ×2 (09:22→21:46)
[2019-08-02] MEDS: MULTIVITAMINS 5 ML ORAL LIQUID PO SCH (09:22)
[2019-08-02] MEDS: SCOPOLAMINE TRANSDERMAL PATCH 72 HR TD SCH (09:23)
[2019-08-03 05:04] VITALS: BP 145/80
--- NOTE | 2019-08-03 10:12 | Discharge Summary ---
Providers - Providers Date of Admission: 05/01/19 22:35 Date of discharge: 08/03/19 Attending physician: LOIDA CARBAJAL 05/01/19 22:46 Consult to Physician [CONS] Routine Comment: Consulting Provider: LISA GREENBERG Physician Instructions: Reason For Exam: cc 05/03/19 09:07 Consult to Physician [CONS] Routine Comment: Consulting Provider: KURT PITTMAN Physician Instructions: Reason For Exam: Fever of 101.2 05/03/19 09:32 Consult to Physician [CONS] Routine Comment: Consulting Provider: GEORGES SO Physician Instructions: Reason For Exam: CARLA 05/03/19 09:55 Consult to PICC Line RN [CONS] Urgent Reason For Exam: IV access for vasopressor Type Line:: PICC 05/05/19 07:25 Consult to Wound/ET Nurse [CONS] Urgent Reason For Exam: wound eval 05/06/19 07:07 Consult to Physician [CONS] Routine Comment: consult called to [phone] [place] 05/06 @3138 Consulting Provider: RAMON CHAUHAN Physician Instructions: Reason For Exam: Seizure 05/08/19 08:58 Consult to Physician [CONS] Routine Comment: Consulting Provider: RAMON CHAUHAN Physician Instructions: Reason For Exam: SEIZURE 05/10/19 11:23 Consult to Dietitian/Nutrition [CONS] Routine Physician Instructions: Assess nutrtn needs, initiate, modify, manage TF Reason For Exam: Reason for Consult: Write/Manage Tube Feeding Reason for Consult: Write/Manage Tube Feeding 05/14/19 15:01 Consult to Dietitian/Nutrition [CONS] Routine Physician Instructions: Assess nutrtn needs, initiate, modify, manage TF Reason For Exam: Reason for Consult: Write/Manage Tube Feeding Reason for Consult: Write/Manage Tube Feeding 05/20/19 06:00 Consult to Physician [CONS] Routine Comment: Consulting Provider: JONI QUIGLEY Physician Instructions: Reason For Exam: perm cath insertion 06/07/19 14:10 Physical Therapy Evaluation and Treat [CONS] Routine Comment: Reason For Exam: deconditioning 06/08/19 08:38 Speech Therapy Evaluation and Treat [CONS] Routine Reason For Exam: failed bedside swallowing screen 06/08/19 10:00 Speech Therapy Evaluation and Treat [CONS] Routine Reason For Exam: s/p extubation 06/10/19 07:59 Consult to Physician [CONS] Routine Comment: Consulting Provider: GUSTABO RAO Physician Instructions: Reason For Exam: ams, sp cardiac arrest 06/10/19 10:35 Consult to Dietitian/Nutrition [CONS] Routine Physician Instructions: Reason For Exam: Reason for Consult: Write/Manage Tube Feeding 06/11/19 14:32 Speech Therapy Evaluation and Treat [CONS] Routine Reason For Exam: dysphagia 06/12/19 12:54 Consult to Dietitian/Nutrition [CONS] Routine Physician Instructions: Reason For Exam: Reason for Consult: Write/Manage Tube Feeding 06/15/19 15:20 Consult to Physician [CONS] Routine Comment: Consulting Provider: FRANCIS KNIGHT Physician Instructions: Reason For Exam: need peg 06/17/19 17:10 Consult to Physician [CONS] Routine Comment: Consulting Provider: MIRIAN IRIZARRY Physician Instructions: Reason For Exam: fever 06/18/19 10:00 Consult to Physician [CONS] Routine Comment: Consulting Provider: DICK ALFARO Physician Instructions: Reason For Exam: low plts, ?HIT 06/21/19 13:52 Consult to PICC Line RN [CONS] Routine Reason For Exam: IV access Type Line:: Midline 06/24/19 10:16 Physical Therapy Evaluation and Treat [CONS] Routine Comment: Reason For Exam: Debility 06/24/19 16:59 Consult to Physician [CONS] Routine Comment: Consulting Provider: MIRIAN IRIZARRY Physician Instructions: Reason For Exam: reconsult/ persistant fevers/leukocytosis 07/15/19 19:50 Consult to Wound/ET Nurse [CONS] Urgent Reason For Exam: wound eval 07/26/19 09:49 Occupational Therapy Evaluate and Treat [CONS] Routine Comment: Reason For Exam: debility Physical Therapy Evaluation and Treat [CONS] Routine Comment: Reason For Exam: debility 07/26/19 13:28 Speech Therapy Eval for Passy-Sparkill Valve [CONS] Routine Reason For Exam: evaluation for passy-jose valve 08/02/19 07:58 Speech Therapy Eval for Passy-Jose Valve [CONS] Routine Reason For Exam: elvauate for passy Speech Therapy Evaluation and Treat [CONS] Routine Reason For Exam: evaluate for passy 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 Hospitalization Condition: Fair Disposition: DC-50 TO HOSPICE (HOME) Exam - Constitutional Vitals: Temp Pulse Resp BP Pulse Ox 98.9 F 96 H 20 145/80 97 08/03/19 04:17 08/03/19 04:17 08/03/19 04:17 08/03/19 04:17 08/03/19 08:29 Plan Activity: advance as tolerated Diet: other (Tube feeding) Special Instructions: other (Continue Oxygen via T-piece 5 l/min) Plan of Treatment: 1.Follow with [facility] Follow up with: PRIMARY CARE, [Primary Care Provider] - 3-5 Days Prescriptions: amLODIPine 10 mg PO DAILY #30 tablet Apixaban [Eliquis] 2.5 mg PO Q12HR #60 tablet hydroCHLOROthiazide [HCTZ] 25 mg PO QDAY #30 tablet labetaloL [Labetalol 100mg TAB] 200 mg PO Q8HR #90 tablet Famotidine [Pepcid] 20 mg PO BID #60 tablet Scopolamine [Transderm-Scop] 1 each TD Q3D #10 patch
[2019-08-03] MEDS: FERROUS SULFATE 308 MG (62mg Elemental Iron) / 7 ML ELIXIR PO SCH (10:28)
[2019-08-03] MEDS: FAMOTIDINE 20 MG TAB PO SCH (10:28)
[2019-08-03] MEDS: APIXABAN 2.5 MG TAB PO SCH (10:28)
[2019-08-03] MEDS: amLODIPine 10 MG TAB PO SCH (10:28)
[2019-08-03] MEDS: hydroCHLOROthiazide 25 MG TAB PO SCH (10:28)
[2019-08-03] MEDS: MULTIVITAMINS 5 ML ORAL LIQUID PO SCH (10:28)
== END 2019-08-03 13:14 | disposition hospice, home (50) | DRG 4 ==
LOC: ED 15:47 → CC1 22:35 → IMCU 06-08 19:27 → CC1 06-12 04:25 → IMCU 06-14 12:01 → CC1 06-16 17:08 → IMCU 06-28 10:19 → 4A 07-22 17:26 → 3A 07-31 00:51
PROVIDERS: ADMIT Internal Medicine; ATTEND Internal Medicine
PROC: 0BH17EZ Insertion of Endotracheal Airway into Trachea, Via Natural or Artificial Opening (ICD-10-PCS; 2019-05-01)
PROC: 4A033R1 Measurement of Arterial Saturation, Peripheral, Percutaneous Approach (ICD-10-PCS; 2019-05-01)
PROC: 05HY33Z Insertion of Infusion Device into Upper Vein, Percutaneous Approach (ICD-10-PCS; 2019-05-03)
PROC: 02HV33Z Insertion of Infusion Device into Superior Vena Cava, Percutaneous Approach (ICD-10-PCS; 2019-05-19)
PROC: B548ZZA Ultrasonography of Superior Vena Cava, Guidance (ICD-10-PCS; 2019-05-19)
PROC: 5A1D70Z Performance of Urinary Filtration, Intermittent, Less than 6 Hours Per Day (ICD-10-PCS; 2019-05-20)
PROC: 5A1D70Z Performance of Urinary Filtration, Intermittent, Less than 6 Hours Per Day (ICD-10-PCS; 2019-05-22)
PROC: 5A1D70Z Performance of Urinary Filtration, Intermittent, Less than 6 Hours Per Day (ICD-10-PCS; 2019-05-25)
PROC: 5A1D70Z Performance of Urinary Filtration, Intermittent, Less than 6 Hours Per Day (ICD-10-PCS; 2019-05-27)
PROC: 5A1D70Z Performance of Urinary Filtration, Intermittent, Less than 6 Hours Per Day (ICD-10-PCS; 2019-05-29)
PROC: 02PY33Z Removal of Infusion Device from Great Vessel, Percutaneous Approach (ICD-10-PCS; 2019-05-31)
PROC: 02HV33Z Insertion of Infusion Device into Superior Vena Cava, Percutaneous Approach (ICD-10-PCS; 2019-05-31)
PROC: B548ZZA Ultrasonography of Superior Vena Cava, Guidance (ICD-10-PCS; 2019-05-31)
PROC: 02PY33Z Removal of Infusion Device from Great Vessel, Percutaneous Approach (ICD-10-PCS; 2019-05-31)
PROC: 5A1D70Z Performance of Urinary Filtration, Intermittent, Less than 6 Hours Per Day (ICD-10-PCS; 2019-06-01)
PROC: 5A1D70Z Performance of Urinary Filtration, Intermittent, Less than 6 Hours Per Day (ICD-10-PCS; 2019-06-03)
PROC: 5A1D70Z Performance of Urinary Filtration, Intermittent, Less than 6 Hours Per Day (ICD-10-PCS; 2019-06-05)
PROC: 5A1D70Z Performance of Urinary Filtration, Intermittent, Less than 6 Hours Per Day (ICD-10-PCS; 2019-06-08)
PROC: 5A09357 Assistance with Respiratory Ventilation, Less than 24 Consecutive Hours, Continuous Positive Airway Pressure (ICD-10-PCS; 2019-06-10)
PROC: 5A09357 Assistance with Respiratory Ventilation, Less than 24 Consecutive Hours, Continuous Positive Airway Pressure (ICD-10-PCS; 2019-06-11)
PROC: 5A09357 Assistance with Respiratory Ventilation, Less than 24 Consecutive Hours, Continuous Positive Airway Pressure (ICD-10-PCS; 2019-06-13)
PROC: 5A09357 Assistance with Respiratory Ventilation, Less than 24 Consecutive Hours, Continuous Positive Airway Pressure (ICD-10-PCS; 2019-06-14)
PROC: 5A09357 Assistance with Respiratory Ventilation, Less than 24 Consecutive Hours, Continuous Positive Airway Pressure (ICD-10-PCS; 2019-06-15)
PROC: 5A1955Z Respiratory Ventilation, Greater than 96 Consecutive Hours (ICD-10-PCS; principal; 2019-06-16)
PROC: 5A09357 Assistance with Respiratory Ventilation, Less than 24 Consecutive Hours, Continuous Positive Airway Pressure (ICD-10-PCS; 2019-06-19)
PROC: 05HY33Z Insertion of Infusion Device into Upper Vein, Percutaneous Approach (ICD-10-PCS; 2019-06-21)
PROC: 0B113F4 Bypass Trachea to Cutaneous with Tracheostomy Device, Percutaneous Approach (ICD-10-PCS; 2019-06-22)
PROC: 0DH63UZ Insertion of Feeding Device into Stomach, Percutaneous Approach (ICD-10-PCS; 2019-06-22)
PROC: 0BJ08ZZ Inspection of Tracheobronchial Tree, Via Natural or Artificial Opening Endoscopic (ICD-10-PCS; 2019-06-22)
PROC: 0BJ08ZZ Inspection of Tracheobronchial Tree, Via Natural or Artificial Opening Endoscopic (ICD-10-PCS; 2019-06-22)
PROC: 0JH63XZ Insertion of Tunneled Vascular Access Device into Chest Subcutaneous Tissue and Fascia, Percutaneous Approach (ICD-10-PCS; 2019-06-25)
PROC: 0JPT3XZ Removal of Tunneled Vascular Access Device from Trunk Subcutaneous Tissue and Fascia, Percutaneous Approach (ICD-10-PCS; 2019-06-25)
DX: J96.21 Acute and chronic respiratory failure with hypoxia (principal); A41.9 Sepsis, unspecified organism; N17.0 Acute kidney failure with tubular necrosis; I50.31 Acute diastolic (congestive) heart failure; N18.6 End stage renal disease; G93.41 Metabolic encephalopathy; E43 Unspecified severe protein-calorie malnutrition; E66.2 Morbid (severe) obesity with alveolar hypoventilation; J81.1 Chronic pulmonary edema; J90 Pleural effusion, not elsewhere classified; I13.2 Hypertensive heart and chronic kidney disease with heart failure and with stage 5 chronic kidney disease, or end stage renal disease; N39.0 Urinary tract infection, site not specified; I47.2 Ventricular tachycardia; E87.0 Hyperosmolality and hypernatremia; G93.1 Anoxic brain damage, not elsewhere classified; Z68.42 Body mass index [BMI] 45.0-49.9, adult; J96.22 Acute and chronic respiratory failure with hypercapnia; F17.210 Nicotine dependence, cigarettes, uncomplicated; E87.5 Hyperkalemia; D64.9 Anemia, unspecified; R79.89 Other specified abnormal findings of blood chemistry; R23.0 Cyanosis; K76.1 Chronic passive congestion of liver; G40.909 Epilepsy, unspecified, not intractable, without status epilepticus; I27.20 Pulmonary hypertension, unspecified; R13.12 Dysphagia, oropharyngeal phase; D63.1 Anemia in chronic kidney disease; D69.6 Thrombocytopenia, unspecified; E83.42 Hypomagnesemia; F41.9 Anxiety disorder, unspecified; R50.9 Fever, unspecified; Z91.19 Patient's noncompliance with other medical treatment and regimen; Z99.2 Dependence on renal dialysis; Z71.3 Dietary counseling and surveillance
CPT/HCPCS: 31720; 36415; 36600; 70360; 71045; 74018; 74230; 76705; 76770; 77001; 80048; 80053; 80061; 80074; 80202; 81001; 82550; 82553; 82570; 82607; 82728; 82747; 82803; 82962; 83550; 83735; 83880; 83930; 84100; 84145; 84156; 84300; 84478; 84484; 84520; 84550; 85007; 85025; 85027; 85384; 85610; 85730; 86022; 86038; 87040; 87070; 87086; 87205; 87400; 93005; 93010; 93306; 93970; 94002; 94003; 94644; 94660; 94760; 95819; 96365; 96366; 96375; G0378; C1750; J0133; J0171; J0360; J0690; J0692; J0696; J0885; J1450; J1644; J1650; J1815; J1940; J1953; J1956; J2001; J2020; J2060; J2543; J2704; J2920; J2930; J2997; J3010; J3370; J3475; J7030; J7040; J7050; J7060; J7070; J7512